=== PATIENT | male | born 1965 | race Caucasian/White ===

== ENCOUNTER → 2025-02-05 | Outpatient (REF) | payer MEDICARE, SELFPAY ==
[2025-02-05 10:01] LABS: Absolute Lymphocyte Count 1.77 X10^3/uL (0.83-4.51); Absolute Neutrophil Count 4.6 X10^3/uL (2.0-7.7); Basophil# 0.08 X10^3/uL; Eosinophil# 0.33 X10^3/uL; Eosinophils% 4.1 % (0-5); Hematocrit 28.1 % (40-54); Hemoglobin 8.8 g/dL (13.0-16.5); Lymphocyte # 1.77 X10^3/ul (0.83-4.51); Mean Corp Hgb Conc 31.3 g/dL (32-36); Mean Corpuscular Volume 92.7 fL (80-94); Mean Platelet Vol. 9.2 fl (6.2-12.0); Monocyte# 1.26 X10^3/uL; Monocyte% 15.6 % (0-10); NRBC Flagged by Analyzer 0 % (0-5); Neutrophil # 4.57 X10^3/uL (2.7-7.7); Neutrophil % 56.7 % (47-70); Platelet Count 358 K/mm3 (150-450); RBC Distribution Width CV 18.8 % (11.6-14.6); RBC Distribution Width SD 63.1 fl (35.1-43.9); Red Blood Count 3.03 M/mm3 (4.6-6.2); White Blood Count 8.1 K/mm3 (4.4-11.0)
[2025-02-05 10:18] LABS: ALB/GLOB Ratio 0.7 RATIO (0.9-2.4); AST(SGOT) 42 U/L (<=37); Alanine Aminotransfer ALT/SGPT 11 U/L (<=46); Albumin, Serum 3.1 g/dL (3.5-5.0); Alkaline Phosphatase 260 U/L (40-129); Anion Gap 18 (5-15); BUN 22 mg/dL (4-19); BUN/Creat Ratio 4.1 RATIO (10-20); Carbon Dioxide 25.9 mmol/L (21.0-32.0); Chloride 93 mmol/L (98-108); Creatinine, Serum 5.27 mg/dL (0.70-1.20); EST Glomerular Filtration Rate 12 (>60); Globulin 4.3 g/dL (2.2-4.2); Glucose 65 mg/dL (70-99); Potassium 4.5 mmol/L (3.3-5.1); Protein, Total 7.4 g/dL (5.9-8.4); Sodium Level 136 mmol/L (133-145); Total Bilirubin 0.81 mg/dL (0.00-1.30)
== END ==
LOC: OLS.SANC 05:56
DX: I48.91 Unspecified atrial fibrillation (principal); D64.9 Anemia, unspecified; M46.28 Osteomyelitis of vertebra, sacral and sacrococcygeal region
CPT/HCPCS: 36415; 80053; 85025

== ENCOUNTER → 2025-02-07 | Outpatient (REF) | payer MEDICARE, SELFPAY ==
[2025-02-07 09:50] LABS: International Normalized Ratio 1.8; Prothrombin Time (Protime)PT. 21.1 SECONDS (11.7-14.9)
== END ==
LOC: OLS.SANC 05:00
PROVIDERS: Visit Provider Internal Medicine
DX: Z79.01 Long term (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 anticoagulants (principal)
CPT/HCPCS: 36415; 85610

== ENCOUNTER → 2025-02-08 | Outpatient (REF) | payer MEDICARE, SELFPAY ==
[2025-02-08 08:06] LABS: INR Fingerstick 2.3; Prothrombin Time Fingerstick 24.9 SEC (11.7-14.9)
== END ==
LOC: OLS.SANC 05:00
DX: Z79.01 Long term (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 anticoagulants (principal)
CPT/HCPCS: 36416; 85610

== ENCOUNTER → 2025-02-12 | Outpatient (REF) | payer MEDICARE, SELFPAY ==
[2025-02-12 08:53] LABS: Absolute Lymphocyte Count 1.29 X10^3/uL (0.83-4.51); Absolute Neutrophil Count 4.7 X10^3/uL (2.0-7.7); Basophil# 0.08 X10^3/uL; Basophil% 1.1 % (0-1); Eosinophil# 0.34 X10^3/uL; Eosinophils% 4.7 % (0-5); Hematocrit 24.6 % (40-54); Lymphocyte # 1.29 X10^3/ul (0.83-4.51); Lymphocyte % 17.7 % (19-41); Mean Corp Hgb Conc 32.5 g/dL (32-36); Mean Corpuscular Hgb 29.3 pg (27.0-32.0); Mean Corpuscular Volume 90.1 fL (80-94); Mean Platelet Vol. 9.2 fl (6.2-12.0); Monocyte# 0.87 X10^3/uL; Monocyte% 11.9 % (0-10); NRBC Flagged by Analyzer 0 % (0-5); Neutrophil # 4.67 X10^3/uL (2.7-7.7); Neutrophil % 64.1 % (47-70); Platelet Count 294 K/mm3 (150-450); RBC Distribution Width CV 18.3 % (11.6-14.6); RBC Distribution Width SD 59.4 fl (35.1-43.9); Red Blood Count 2.73 M/mm3 (4.6-6.2); White Blood Count 7.3 K/mm3 (4.4-11.0)
[2025-02-12 09:05] LABS: ALB/GLOB Ratio 0.7 RATIO (0.9-2.4); AST(SGOT) 34 U/L (<=37); Alanine Aminotransfer ALT/SGPT 9 U/L (<=46); Albumin, Serum 2.9 g/dL (3.5-5.0); Alkaline Phosphatase 177 U/L (40-129); Anion Gap 12 (5-15); BUN 43 mg/dL (4-19); BUN/Creat Ratio 10.3 RATIO (10-20); Calcium,Total 9.9 mg/dL (7.6-11.0); Carbon Dioxide 28.4 mmol/L (21.0-32.0); Chloride 91 mmol/L (98-108); Creatinine, Serum 4.17 mg/dL (0.70-1.20); EST Glomerular Filtration Rate 16 (>60); Globulin 4.2 g/dL (2.2-4.2); Glucose 77 mg/dL (70-99); Potassium 3.2 mmol/L (3.3-5.1); Protein, Total 7.1 g/dL (5.9-8.4); Sodium Level 131 mmol/L (133-145); Total Bilirubin 0.69 mg/dL (0.00-1.30)
[2025-02-12 09:39] LABS: International Normalized Ratio 1.5; Prothrombin Time (Protime)PT. 17.9 SECONDS (11.7-14.9)
== END ==
LOC: OLS.SANC 05:00
DX: I48.91 Unspecified atrial fibrillation (principal); D64.9 Anemia, unspecified; I10 Essential (primary) hypertension; Z79.01 Long term (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 anticoagulants
CPT/HCPCS: 36415; 80053; 85025; 85610

== ENCOUNTER → 2025-02-13 05:00 | Outpatient (REF) | payer MEDICARE, SELFPAY ==
[2025-02-13 08:34] LABS: INR Fingerstick 1.7; Prothrombin Time Fingerstick 19.1 SEC (11.7-14.9)
== END ==
LOC: OLS.SANC 05:00
DX: Z79.01 Long term (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 anticoagulants (principal)
CPT/HCPCS: 36416; 85610

== ENCOUNTER → 2025-02-15 | Outpatient (REF) | payer MEDICARE, SELFPAY ==
[2025-02-15 07:53] LABS: International Normalized Ratio 1.3; Prothrombin Time (Protime)PT. 16.6 SECONDS (11.7-14.9)
== END ==
LOC: OLS.SANC 05:00
DX: Z79.01 Long term (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 anticoagulants (principal)
CPT/HCPCS: 36415; 85610

== ENCOUNTER → 2025-02-20 | Outpatient (REF) | payer MEDICARE, SELFPAY ==
[2025-02-20 08:58] LABS: Absolute Lymphocyte Count 1.13 X10^3/uL (0.83-4.51); Absolute Neutrophil Count 4.6 X10^3/uL (2.0-7.7); Basophil% 1.4 % (0-1); Eosinophil# 0.17 X10^3/uL; Eosinophils% 2.5 % (0-5); Hematocrit 25.9 % (40-54); Hemoglobin 8.5 g/dL (13.0-16.5); Lymphocyte # 1.13 X10^3/ul (0.83-4.51); Lymphocyte % 16.4 % (19-41); Mean Corp Hgb Conc 32.8 g/dL (32-36); Mean Corpuscular Hgb 30.1 pg (27.0-32.0); Mean Corpuscular Volume 91.8 fL (80-94); Monocyte# 0.83 X10^3/uL; NRBC Flagged by Analyzer 0 % (0-5); Neutrophil # 4.64 X10^3/uL (2.7-7.7); Neutrophil % 67.3 % (47-70); Platelet Count 322 K/mm3 (150-450); RBC Distribution Width CV 19.4 % (11.6-14.6); RBC Distribution Width SD 63.5 fl (35.1-43.9); Red Blood Count 2.82 M/mm3 (4.6-6.2); White Blood Count 6.9 K/mm3 (4.4-11.0)
[2025-02-20 09:18] LABS: ALB/GLOB Ratio 0.8 RATIO (0.9-2.4); AST(SGOT) 32 U/L (<=37); Alanine Aminotransfer ALT/SGPT 13 U/L (<=46); Alkaline Phosphatase 133 U/L (40-129); Anion Gap 12 (5-15); BUN 44 mg/dL (4-19); BUN/Creat Ratio 11.5 RATIO (10-20); Calcium,Total 9.8 mg/dL (7.6-11.0); Carbon Dioxide 30.1 mmol/L (21.0-32.0); Chloride 91 mmol/L (98-108); Creatinine, Serum 3.87 mg/dL (0.70-1.20); EST Glomerular Filtration Rate 17 (>60); Glucose 78 mg/dL (70-99); Protein, Total 6.9 g/dL (5.9-8.4); Sodium Level 134 mmol/L (133-145); Total Bilirubin 0.64 mg/dL (0.00-1.30)
[2025-02-20 09:47] LABS: International Normalized Ratio 1.4; Prothrombin Time (Protime)PT. 17.5 SECONDS (11.7-14.9)
== END ==
LOC: OLS.SANC 04:00
DX: Z79.01 Long term (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 anticoagulants (principal)
CPT/HCPCS: 36415; 80053; 85025; 85610

== ENCOUNTER → 2025-03-08 05:00 | Outpatient (REF) | payer MEDICARE, SELFPAY ==
--- OUTSIDE RECORDS SUMMARY | 2025-03-08 04:18 | XMS RPT_ITS | CCD ---
Author Organization [facility] Care Team Providers Care Satellite Communications Engineer Name Role Phone Candido Starr Unavailable Unavailable Primary Care Provider Unavailrickey Loomis MD, Daryn Cali Primary Care Provider Unavailable Primary Care Provider UnavailCandido Hardy MD Unavailable Daryn Loomis MD Primary Care Provider Candido Starr MD Unavailable [facility] Primary Care Provider [facility] Primary Care Provider [phone] Kayley Melendrez MD Attending Provider Unava ilable Jayesh Nguyen Attending Provider Unavailab le Kayley Jones Attending Unavail able Parvin ALBA, Kayley Attending Unavail able Samira PARTH, Kayley Attending Unavail able Samira PARTH, Kayley Attending Unavail able Samira PARTH, Kayley Attending Unavail able Jayesh Nguyen Attending Unavailable Parvin ALBA, Kayley Attending Unavail able [facility] Primary Care Unavailable BETTYE PIERRE Admitting Unavailable TERRELLYURIYWELLINGTON Consulting Unavailable ANTHONY HURTADO Attending Unavailable [facility] Primary Care Unavailable CINDY PATEL Consulting Unavailrickey MONTEMAYOR LUCIANO Admitting Unavailable LUCIANO MONTEMAYOR Attending Unavailable ELDON ALBA Consulting Unavailable TIFFANIE VILLEGAS Consulting Unavailable DARYN SANTACRUZ Consulting Unavailable CALI ARREDONDO Consulting Unavailable [facility] Primary Care Unavailable QUIANA JEFFERY Admitting Unavailable JUNE CHAPARRO Consulting Unavailable BARB DAWKINS Attending Unavailable MIKALA DAY Attending Unavailable MIKAAL DAY Referring Unavailable [facility] Primary Care Unavailable FRANK, JESE Referring Unavailable [facility] Primary Care Unavailable MIKALA DAY Attending Unavailable [facility] Unavailable JR SHAH Attending Unavailable DARYN LOOMIS Primary [facility] Unavailable MONTEMAYOR, LUCIANO Referring Unavailable [facility] Unavailable MONTEMAYOR, LUCIANO Referring Unavailable [facility] Care Unavailable OSIRIS TERRELL Attending Unavailable [facility] Unavailable FRANK, JESE Referring Unavailable [facility] Primary Care Unavailable Allergies Allergy Classification Reported Allergen(s) Allergy Type Date of Onset Reaction(s) Facility (11 sources) Lisinopril Drug Allergy [address] [facility] Work Phone: (20 sources) Lisinopril Allergy to substance 2 Swelling, Angioedema [facility] Medications Current Medications Medication Drug Class(es) Dates Sig (Normalized) Sig (Original) amLODIPine 5 mg oral tablet (13 sources) Dihydropyridine Calcium Channel Mono Start: 08-13-2020 take 2 tablets by mouth once daily amLODIPine (NORVASC) 5 mg tablet Take 2 tablets by mouth once daily. 0 08/13/2020 Active Start: 10-21-2019 End: 10-27-2019 take 1 tablet by mouth once daily amLODIPine (NORVASC) 5 MG tablet Take 1 tablet by mouth daily 30 tablet 0 10/25/2019 10/27/2019 Discontinued Comment on above: Take 5 mg by mouth o nce daily. Take 2 tablets by mo ut once daily. amoxicillin 500 mg / clavulanate 125 mg oral tablet (2 sources) Penicillin-class Antibacterial Start: 025 Ampicillin-Sulbactam Sodium (UNASYN IV) (1 source) Start: 025 End: take 3 g intravenously every twenty-four hours Ampicillin-Sulbact am Sodium (UNASYN IV) Infuse 3 g into a venous catheter Every 24 hours. 01/25/2025 02/14/2025 Active ascorbic acid 100 mg / d-biotin 0.3 mg / folic acid 1 mg / niacinamide 20 mg / pantothenic acid 10 mg / pyridoxine hydrochloride 10 mg / riboflavin 1.7 mg / thiamine 1.5 mg / vitamin b12 0.006 mg oral tablet (6 sources) Vitamin B12, Vitamin C atorvastatin 10 mg oral tablet (3 sources) HMG-CoA Reductase Inhibitor Start: End: take 1 tablet by mouth once daily atorvastatin (Lipitor) 10 MG tablet Take 1 tablet (10 mg) by mouth daily. 30 tablet 1 08/17/2023 10/16/2023 Active bisacodyl 5 mg delayed release oral tablet (12 sources) Stimulant Laxative take 10 mg rectal route every twenty-four hours as needed for constipation take 5 mg by mouth every twenty- four hours as needed for constipation emollient (Biafine) cream (5 sources) Start: 05-01-2023 emollient (Alize fine) cream Apply topically 2 times daily. 454 g 0 05/01/2023 Active Start: 05-01-2023 End: 05-01-2023 emollient (Biafine) cream Ap ply topically 2 times daily. 454 g 0 05/01/2023 05/01/2023 Discontinued (Reorder) guaiFENesin 20 mg/ml oral solution (13 sources) Start: 11-28-2024 End: 12-08-2024 guaiFENesin (Robitussin) 100 MG/5ML liquid 20 mL (400 mg) by Per G Tube route every 12 hours for 10 days. 11/28/2024 12/08/2024 Active 1 ml hydrALAZINE hydrochloride 20 mg/ml injection (2 sources) Arteriolar Vasodilator Start: 10-19-2019 End: 10-20-2019 hydrALAZINE (APRESOLINE) injection 10 mg loperamide hydrochloride 0.133 mg/ml oral suspension (13 sources) Opioid Agonist Start: 11-28-2024 End: 12-08-2024 take 15 mL by mouth twice daily loperamide (Imodium) 1 MG/7.5ML solution Take 15 mL (2 mg) by mouth 2 times daily for 10 days. 11/28/2024 12/08/2024 Active magnesium hydroxide 160 mg/ml oral suspension (6 sources) take 30 mL by mouth every twenty-four hours as needed for constipation take 30 mL by mouth every twenty-four hours as needed for constipation magnesium hydroxide (Milk of Magnesia) 800 MG/5ML suspension Take 30 mL by mouth Daily as needed for constipation (if no bm in 3 days). Suspended melatonin 3 mg oral tablet (20 sources) Start: 03-01-2025 Start: 02-21-2025 End: 03-05-2025 Start: 01-19-2025 End: 02-01-2025 Start: 11-28-2024 End: 03-05-2025 melatonin 5 MG tablet 1 tabl et (5 mg) by Per G Tube route Nightly as needed (insomnia). 11/28/2024 03/05/2025 Discontinued (Stop taking at discharge) Start: 11-28-2024 End: 03-05-2025 metoprolol tartrate 25 mg or al tablet (20 sources) beta-Adrenergic Mono Start: 02-21-2025 End: 03-05-2025 Start: 01-25-2025 Start: 01-25-2025 End: 02-01-2025 Start: 01-19-2025 End: 01-29-2025 Start: 11-28-2024 End: 11-28-2025 metoprolol tartrate (Lopress or) 25 MG tablet 1 tablet (25 mg) by Per G Tube route 2 times daily. 11/28/2024 03/05/2025 Discontinued (Stop taking at discharge) Start: 11-28-2024 End: 03-01-2026 Start: 11-12-2023 End: 11-28-2024 take 1 tablet by mouth once daily metoprolol succinate XL (Toprol-XL) 50 MG 24 hr tablet Take 1 tablet (50 mg) by mouth daily. Do not crush or chew. 30 tablet 2 11/12/2023 11/28/2024 Discontinued (Stop taking at discharge) Start: 08-17-2023 End: 08-17-2024 take 1 tablet by mouth once daily metoprolol succinate XL (Toprol-XL) 25 MG 24 hr tablet Take 1 tablet (25 mg) by mouth daily. Do not crush or chew. 30 tablet 1 08/18/2023 11/12/2023 Discontinued (Reorder) Start: 10-27-2019 metoprolol tar trate, short acting, (LOPRESSOR) 25 mg tablet Take 12.5 mg by mouth twice daily. 0 10/27/2019 Active Start: 10-24-2019 End: 11-26-2019 take 0.5 tablet by mouth twice daily metoprolol tartrate (LOPRESSOR) 25 MG tablet Take 0.5 tablets by mouth 2 times daily 30 tablet 0 10/27/2019 10/27/2019 Discontinued Start: 10-19-2019 metoprolol (LO PRESSOR) injection 5 mg Comment on above: Take 12.5 mg by mout h twice daily. metoprolol tartrate (LOPRESSOR) split-tablet 12.5 mg (1 source) Start: 10-22-19 metoprolol tartrate (LOPRESSOR) split-tablet 12.5 mg potassium phosphate 155 mg / sodium phosphate, dibasic 852 mg / sodium phosphate, monobasic 130 mg oral tablet (4 sources) take 1 tablet by mouth in the morning phosphorus (K Phos Neutral) tablet Take 1 tablet by mouth in the morning and 1 tablet before bedtime. 0 Active pramoxine hydrochloride 10 mg/ml / zinc acetate 1 mg/ml topical lotion (5 sources) Start: 05-01-20 End: 05-01-20 pramoxine-zinc acetate (CALADryl) 1-0.1 % lotion Apply topically 2 times daily as needed for itching or irritation. 177 mL 0 05/01/2023 Active QUEtiapine 25 mg oral tablet (20 sources) Atypical Antipsychotic Start: 02-25-20 End: 03-31-20 Start: 02-21-2025 End: 02-24-2025 Start: 01-19-2025 Start: 11-28-2024 End: 03-05-2025 QUEtiapine (SEROquel) 25 MG tablet 1 tablet (25 mg) by Per G Tube route Nightly. 11/28/2024 03/05/2025 Discontinued (Stop taking at discharge) Start: 11-28-2024 End: 03-05-2025 sevelamer carbonate 800 mg o ral tablet (20 sources) Phosphate Binder Start: 03-01-2025 End: 03-01-2026 Start: 02-21-2025 End: 03-05-2025 Start: 08-13-2020 take 3 tablets by mo uth three times daily at mealtime sevelamer carbonate (RENVELA) 800 mg tablet Take 3 tablets by mouth three times daily with meals. 0 08/13/2020 Active Start: 10-24-2019 End: 11-26-2019 take 2 tablets by mouth three times daily at mealtime sevelamer (RENVELA) 800 MG tablet Take 2 tablets by mouth 3 times daily (with meals) 180 tablet 0 10/27/2019 Suspended Start: 10-22-2019 sevelamer (ROCKY BENNETT) tablet 1,600 mg End: 03-05-2025 Comment on above: Take 1,600 mg by edwina three times daily with meals. Take 3 tablets by mo [facility] hospital three times daily with meals. sodium chloride flush 0.9 % injection 3 mL (1 source) Start: 10-19-19 sodium chloride flush 0.9 % injection 3 mL sodium zirconium cyclosilicate 5000 mg powder for oral suspension (4 sources) Start: 03-03-20 End: 03-05-20 sulfamethoxazole 400 mg / trimethoprim 80 mg oral tablet (2 sources) Dihydrofolate Reductase Inhibitor Antibacterial, Sulfonamide Antimicrobial Start: 05-01-20 End: 05-04-20 take 1 tablet by mouth once daily sulfamethoxazole- trimethoprim (Bactrim) 400-80 MG tablet Take 1 tablet by mouth daily for 3 days. 3 tablet 0 05/01/2023 05/04/2023 Active warfarin sodium 7.5 mg oral tablet (20 sources) Vitamin K Antagonist Start: 03-04-20 Start: 03-02-2025 Start: 02-27-2025 Start: 02-24-2025 Start: 01-24-2025 End: 02-01-2025 Start: 11-28-2024 warfarin (Coum yevgeniy) 1 MG tablet Take as directed per After Visit Summary. 11/28/2024 Active Start: 11-28-2024 (20 sources) Start: 03-03-2025 Start: 03-01-2025 End: 03-05-2025 take 2250 mg intravenously every six hours Start: 02-28-2025 Start: 02-24-2025 End: 03-01-2025 take 4500 mg intravenously every eight hours Start: 02-22-2025 End: 02-22-2025 Start: 02-21-2025 End: 02-22-2025 take 2250 mg intravenously every six hours Start: 02-21-2025 End: 02-21-2025 Start: 02-21-2025 End: 03-05-2025 take 4 mg by mouth every eight hours as needed for nausea and vomiting [Order 1 Start] Name: ondansetron ODT (Zofran-ODT) disintegrating tablet 4 mg Signed Summary: 4 mg, Oral, Every 8 hours PRN, nausea, vomiting, Starting on Wed02/21/25 at 0020, 1st Line. If inadequate response within 60 minutes, proceed to next-line agent or contact provider if no further options ordered. Patient should allow tablet to dissolve on tongue. Do not remove from blister pack until just before administering. [Order 1 End] [Order 2 Start] Name: ondansetron (Zofran) injection 4 mg Signed Summary: 4 mg, IntraVENous, Every 6 hours PRN, nausea, vomiting, Starting on Wed02/21/25 at 0020, 1st Line. Give IV if patient is unable to take orally. If inadequate response within 60 minutes, proceed to next-line agent or contact provider if no further options ordered. [Order 2 End] Start: 02-21-2025 End: 03-05-2025 take 650 mg by mouth every six hours as needed for pain and fever [Order 1 Start] Name: acetaminophen (Tylenol) tablet 650 mg Signed Summary: 650 mg, Oral, Every 6 hours PRN, mild pain (1-3), fever, For temp greater than 100.4 F (38 C), Starting on Wed02/21/25 at 0020, Maximum dose of acetaminophen is 4000 mg from all sources in 24 hours. [Order 1 End] [Order 2 Start] Name: acetaminophen (Tylenol) suppository 650 mg Signed Summary: 650 mg, Rectal, Every 6 hours PRN, fever, For temp greater than 100.4 F (38 C), Starting on Wed02/21/25 at 0020, Administer if oral route cannot be used. Maximum dose of acetaminophen is 4000 mg from all sources in 24 hours. [Order 2 End] Start: 01-25-2025 End: 02-01-2025 Start: 01-23-2025 End: 02-01-2025 take 5 mg by mouth every six hours as needed for pain [Order 1 Start] Name: oxyCODONE (Roxicodone) immediate release tablet 5 mg Signed Summary: 5 mg, Oral, Every 6 hours PRN, moderate pain (4-6), Starting on Wed01/23/25 at 1312 [Order 1 End] [Order 2 Start] Name: oxyCODONE (Roxicodone) immediate release tablet 10 mg Signed Summary: 10 mg, Oral, Every 6 hours PRN, severe pain (7-10), Starting on Wed01/23/25 at 1312 [Order 2 End] Start: 01-21-2025 End: 01-22-2025 Start: 01-20-2025 End: 01-20-2025 Start: 01-20-2025 End: 01-21-2025 Start: 01-19-2025 End: 01-25-2025 take 3000 mg intravenously every twelve hours Start: 01-19-2025 End: 01-23-2025 take 2.5 mg by mouth every six hours as needed for pain Completed/Discontinued Medications Medication Drug Class(es) Dates Sig (Normalized) Sig (Original) acetaminophen 500 mg oral tablet (14 sources) Start: 01-19-2025 End: 02-01-2025 take 1000 mg by mouth every eight hours as needed for pain and fever Start: 01-19-2025 End: 01-19-2025 take 1 tablet by mouth every eight hours Start: 01-19-2025 End: 01-19-2025 Start: 08-17-2023 End: 08-17-2023 take 1 tablet by mouth every six hours as needed for pain and fever acetaminophen (Tylenol) tablet 650 mg 20 ml albumin human, longterm 250 mg/ml injection (1 source) Human Serum Albumin Start: 10-12-2024 End: 10-12-2024 IntraVENous, As needed, Starting on Wed10/12/24 at 1025, Anesthesia Intraprocedure albuterol 0.83 mg/ml inhalation solution (2 sources) beta2-Adrenergic Agonist Start: 02-21-2025 End: 03-05-2025 albuterol 0.833 mg/ml / ipratropium bromide 0.167 mg/ml inhalation solution (20 sources) Anticholinergic, beta2-Adrenergic Agonist Start: 11-28-2024 End: 11-28-2025 ipratropium-albuterol (Duo-Neb) 0.5-2.5 mg/3 mL nebulizer solution Take 3 mL by nebulization every 8 hours. 11/28/2024 02/21/2025 Discontinued (Dose adjustment) Start: 11-28-2024 End: 11-28-2025 aminocaproic acid (Amicar) 10g in sodium chloride 0.9% 290 mL infusion (1 source) Start: 10-12-2024 End: 10-12-2024 IntraVENous, Continuous PRN, Starting on Brigid 10/12/24 at 0750, Anesthesia Intraprocedure amLODIPine 10 mg / atorvastatin 20 mg oral tablet (3 sources) Dihydropyridine Calcium Channel Mono, HMG-CoA Reductase Inhibitor End: 08-17-2023 take 1 tablet by mouth in the morning amLODIPine-atorvast atin (Caduet) 10-20 MG tablet Take 1 tablet by mouth in the morning. 0 08/17/2023 Discontinued ampicillin-sulbacta m (Unasyn) 3,000 mg in sodium chloride 0.9 % 100 mL IVPB (Add-Reynolds) (2 sources) Start: 02-01-2025 End: 02-01-2025 anidulafungin 100 mg in sodium chloride 0.9 % 100 mL IVPB (10 sources) Start: 11-28-2024 End: 12-04-2024 anidulafungin 100 mg in sodium chloride 0.9 % 100 mL IVPB Infuse 100 mg into a venous catheter Every 24 hours for 6 doses. 11/28/2024 12/04/2024 Start: 11-28-2024 End: 12-04-2024 anidulafungin 100 mg in sodi um chloride 0.9 % 100 mL IVPB Infuse 100 mg into a venous catheter Every 24 hours for 6 doses. 11/28/2024 12/04/2024 Active apixaban 5 mg oral tablet (20 sources) Factor Xa Inhibitor Start: 08-17-2023 End: 11-28-2024 take 1 tablet by mouth twice daily apixaban (Eliquis) 5 MG tablet Take 1 tablet (5 mg) by mouth 2 times daily. 60 tablet 1 08/17/2023 11/28/2024 Discontinued (Stop taking at discharge) ascorbic acid 100 mg / biotin 0.15 mg / calcium pantothenate 5 mg / folic acid 1 mg / niacin 20 mg / pyridoxine 10 mg / riboflavin 1.7 mg / thiamine mononitrate 1.5 mg / vitamin b12 0.006 mg oral capsule (2 sources) Nicotinic Acid, Vitamin B12, Vitamin C Start: 02-21-2025 End: 03-05-2025 asenapine 5 mg sublingual tablet (2 sources) Atypical Antipsychotic Start: 01-22-2025 End: 01-22-2025 Start: 01-22-2025 End: 01-22-2025 B Eagzfae-G-Irhow Acid (NEPHRO-NATO) 0.8 MG TABS (1 source) Start: 10-14-2020 take 1 tablet by mouth once daily B Vaanrqb-N-Oyrtu Acid (NEPHRO-NATO) 0.8 MG TABS TAKE 1 TABLET BY MOUTH EVERY DAY 0 10/14/2020 Suspended 10 ml calcium chloride 100 mg/ml prefilled syringe (2 sources) Start: 10-12-2024 End: 10-12-2024 IntraVENous, As needed, Starting on Brigid 10/12/24 at 1010, Anesthesia Intraprocedure Start: 10-19-2019 End: 10-19-2019 calcium chloride 10 % inject ion 1 g calcium chloride 0.0014 meq/ ml / potassium chloride 0.004 meq/ml / sodium chloride 0.103 meq/ml / sodium lactate 0.028 meq/ml injectable solution (3 sources) Start: 01-25-2025 End: 01-25-2025 Start: 10-19-2019 End: 10-19-2019 lactated ringers bolus ceFAZolin 1000 mg injection (1 source) Cephalosporin Antibacterial Start: 10-12-2024 End: 10-12-2024 IntraVENous, As needed, Starting on Brigid 10/12/24 at 0741, Anesthesia Intraprocedure cholecalciferol 9.52 unt/ml / glucose 357 mg/ml oral gel (2 sources) Vitamin D Start: 01-21-2025 End: 02-01-2025 cinacalcet 60 mg oral tablet (1 source) Calcium-sensing Receptor Agonist Start: 12-17-2020 End: 12-16-2021 Cinacalcet HCl (SENSIPAR PO) Take 60 mg by mouth 0 12/17/2020 12/16/2021 Suspended collagenase 0.25 unt/mg topical ointment (4 sources) Collagen-specific Enzyme Start: 01-19-2025 End: 02-01-2025 1 ml dexamethasone phosphate 10 mg/ml injection (2 sources) Corticosteroid Start: 10-12-2024 End: 10-12-2024 IntraVENous, As needed, Starting on Wed10/12/24 at 0736, Anesthesia Intraprocedure Start: 10-19-2019 End: 10-19-2019 dexamethasone (DECADRON) inj ection 4 mg 1 ml diphenhydrAMINE hydrochloride 50 mg/ml cartridge (1 source) Histamine-1 Receptor Antagonist Start: 10-19-2019 End: 10-19-2019 diphenhydrAMINE (BENADRYL) injection 25 mg diphenhydrAMINE hydrochloride 10 mg/ml / zinc acetate 1 mg/ml topical cream (1 source) Histamine-1 Receptor Antagonist Start: 05-01-2023 End: 05-01-2023 diphenhydrAMINE-zinc acetate (BENADryl) cream Apply topically 3 times daily as needed for itching or irritation. 28 g 0 05/01/2023 05/01/2023 Discontinued (Ineffective) Drug or medicament (substance) (4 sources) Start: 01-25-2025 End: 02-21-2025 EPINEPHrine 0.01 mg/ml / lidocaine hydrochloride 10 mg/ml injectable solution (2 sources) Antiarrhythmic, alpha-Adrenergic Agonist, beta-Adrenergic Agonist, Catecholamine, Amide Local Anesthetic Start: 01-30-2025 End: 01-30-2025 EPINEPHrine 5mg in 0.9% sodium chloride 250 mL infusion (weight-based) (1 source) Start: 10-12-2024 End: 10-12-2024 IntraVENous, Continuous PRN, Starting on Wed10/12/24 at 1024, Anesthesia Intraprocedure epoetin rowan-epbx (Retacrit) 18710 UNIT/ML injection (20 sources) Start: 12-04-2024 End: 02-21-2025 inject 0.79 mL by subcutaneous injection every week epoetin rowan-epbx (Retacrit) 35889 UNIT/ML injection Indications: ESRD on Dialysis Inject 0.79 mL (7,900 Units) under the skin 1 (one) time per week. 12/04/2024 02/21/2025 Discontinued (Discontinued by another clinician) Start: 12-04-2024 inject 0.79 mL by bangura bcutaneous injection every week epoetin rowan-epbx (Retacrit) 97155 UNIT/ML injection Indications: ESRD on Dialysis Inject 0.79 mL (7,900 Units) under the skin 1 (one) time per week. 12/04/2024 Active 10 ml esmolol hydrochloride 10 mg/ml injection (1 source) beta-Adrenergic Mono Start: 10-12-2024 End: 10-12-2024 IntraVENous, As needed, Starting on Brigid 10/12/24 at 0736, Anesthesia Intraprocedure 20 ml etomidate 2 mg/ml injection (1 source) General Anesthetic Start: 10-12-2024 End: 10-12-2024 IntraVENous, As needed, Starting on Brigid 10/12/24 at 0736, Anesthesia Intraprocedure 20 ml fentaNYL 0.05 mg/ml injection (2 sources) Opioid Agonist Start: 10-12-2024 End: 10-12-2024 IntraVENous, As needed, Starting on Brigid 10/12/24 at 0739, Anesthesia Intraprocedure Start: 10-26-2019 End: 10-26-2019 fentaNYL (SUBLIMAZE) injecti on gelatin absorbable (Gelfoam) sponge 1 each (1 source) Start: 05-01-2023 End: 05-01-2023 gelatin absorbable (Gelfoam) sponge 1 each glucagon (rdna) 1 mg injection (2 sources) Antihypoglycemic Agent Start: 01-21-2025 End: 02-01-2025 50 ml glucose 50 mg/ml injection (3 sources) Start: 01-21-2025 End: 02-01-2025 Start: 10-19-2019 End: 10-19-2019 dextrose 50 % IV solution 250 ml heparin sodium, porcine 100 unt/ml injection (20 sources) Unfractionated Heparin, Anti-coagulant Start: 02-21-2025 End: 03-05-2025 Start: 02-21-2025 End: 03-05-2025 Start: 11-28-2024 End: 02-01-2025 Start: 11-28-2024 heparin 1000 u nits/mL injection Infuse 2 mL (2,000 Units) into a venous catheter as needed (heparin dosing algorithm). 11/28/2024 Active Start: 11-28-2024 heparin 1000 u nits/mL injection Infuse 4 mL (4,000 Units) into a venous catheter as needed (per heparin dosing algorithm). 11/28/2024 Active Start: 11-28-2024 End: 02-01-2025 Start: 11-28-2024 heparin 100 un its/mL in dextrose 5 % infusion Infuse 294.5- 1,767 Units/hr into a venous catheter continuous. 11/28/2024 Active Start: 10-12-2024 End: 10-12-2024 IntraVENous, As needed, Star ting on Brigid 10/12/24 at 0904, Anesthesia Intraprocedure Start: 08-17-2023 End: 08-17-2023 heparin injection 5,000 Unit s Start: 10-27-2019 heparin (porci ne) injection 1,800 Units Start: 10-27-2019 heparin (porci ne) injection 1,700 Units Start: 10-22-2019 End: 10-23-2019 heparin (porcine) injection 5,000 Units Start: 10-19-2019 End: 10-27-2019 heparin (porcine) injection 1,400 Units 1 ml HYDROmorphone hydrochlo ride 1 mg/ml cartridge (4 sources) Opioid Agonist Start: 01-24-2025 End: 01-24-2025 Start: 01-19-2025 End: 01-19-2025 Start: 01-19-2025 End: 01-19-2025 hydrOXYzine hydrochloride 10 mg oral tablet (4 sources) Antihistamine Start: 02-01-2025 End: 02-01-2025 Start: 01-19-2025 End: 01-19-2025 Start: 01-19-2025 End: 01-19-2025 insulin, regular, human 100 unt/ml injectable solution (3 sources) Insulin Start: 03-05-2025 End: 03-05-2025 Start: 10-19-2019 End: 10-19-2019 insulin regular (HUMULIN R;N OVOLIN R) injection 5 Units ketamine 50 mg/ml injectable solution (2 sources) General Anesthetic Start: 01-21-2025 End: 01-21-2025 Labetalol (1 source) beta-Adrenergic Mono LABETALOL HCL PO Take by mouth daily 0 Suspended 10 ml lidocaine hydrochloride 10 mg/ml injection (20 sources) Antiarrhythmic, Amide Local Anesthetic Start: 01-30-2025 End: 01-30-2025 Start: 11-29-2024 End: 02-01-2025 apply 1 dose transdermal route once daily Lidocaine 4 % patch Apply 1 patch topically daily. 11/29/2024 Active Start: 10-12-2024 End: 10-12-2024 IntraVENous, As needed, Star ting on Brigid 10/12/24 at 0736, Anesthesia Intraprocedure Start: 09-15-2021 End: 09-15-2021 lidocaine PF 1 % injection Start: 10-26-2019 End: 10-26-2019 lidocaine PF 1 % injection Start: 10-19-2019 End: 10-19-2019 lidocaine PF 2 % injection LORazepam 0.5 mg oral tablet (2 sources) Benzodiazepine Start: 08-17-2023 End: 08-17-2023 take 1 tablet by mouth every six hours as needed for anxiety LORazepam (Ativan) tablet 0.5 mg Methoxy PEG-Epoetin Beta (MIRCERA IJ) (1 source) Start: 11-12-2020 End: 11-11-2021 Methoxy PEG-Epoetin Beta (MIRCERA IJ) 100 mcg 0 11/12/2020 11/11/2021 Suspended 2 ml midazolam 1 mg/ml injection (2 sources) Benzodiazepine Start: 10-12-2024 End: 10-12-2024 IntraVENous, As needed, Starting on Brigid 10/12/24 at 0725, Anesthesia Intraprocedure Start: 10-26-2019 End: 10-26-2019 midazolam (VERSED) injection midodrine hydrochloride 5 mg oral tablet (20 sources) alpha-Adrenergic Agonist Start: 01-26-2025 End: 02-01-2025 Start: 01-19-2025 End: 01-26-2025 take 1 tablet by mouth every six hours Start: 11-28-2024 End: 03-05-2025 take 3 tablets by mouth every six hours midodrine (Proamatine) 5 MG tablet 3 tablets (15 mg) by Per G Tube route every 6 hours. 11/28/2024 03/05/2025 Discontinued (Stop taking at discharge) Start: 11-28-2024 End: 03-05-2025 mupirocin 0.02 mg/mg topical ointment (2 sources) RNA Synthetase Inhibitor Antibacterial Start: 01-19-2025 End: 01-24-2025 1 ml naloxone hydrochloride 0.4 mg/ml injection (4 sources) Opioid Antagonist Start: 02-21-2025 End: 03-05-2025 Start: 01-19-2025 End: 02-01-2025 naloxone in sodium chloride (PF) injection injection (4 sources) naloxone in sodi um chloride (PF) injection injection Inject 0.04 mg into the shoulder, thigh, or buttocks as needed for opioid reversal or respiratory depression. Suspended Nicotine (2 sources) Cholinergic Nicotinic Agonist Start: 08-17-2023 End: 08-17-2023 nicotine (Nicoderm, Step 1) 21 MG/24HR patch 1 patch nitroglycerin 0.4 mg sublingual tablet (2 sources) Nitrate Vasodilator Start: 02-25-2025 End: 02-25-2025 NITROGLYCERIN 100 MCG / ML IN D5W VIAL FOR INTRA-OP/INTRAPROCEDURE USE (1 source) Start: 10-12-2024 End: 10-12-2024 Intra-arTERial, As needed, Starting on Brigid 10/12/24 at 1031, Anesthesia Intraprocedure 2 ml ondansetron 2 mg/ml injection (2 sources) Serotonin-3 Receptor Antagonist Start: 10-21-2019 End: 10-21-2019 ondansetron (ZOFRAN) 4 MG/2ML injection Start: 10-21-2019 ondansetron (Z OFRAN) injection 4 mg ondansetron ODT (Zofran-ODT) disintegrating tablet 4 mg (2 sources) Start: 08-17-2023 End: 08-17-2023 take 1 tablet by mouth every eight hours as needed for nausea and vomiting ondansetron ODT (Zofran-ODT) disintegrating tablet 4 mg oxyCODONE hydrochloride 5 mg oral tablet (20 sources) Opioid Agonist Start: 02-01-2025 End: 03-05-2025 take 1 tablet by mouth every six hours as needed for pain oxyCODONE (Roxicodone) 5 MG immediate release tablet Indications: Complication of tracheostomy (CMS/HCC) ([facility]) , Sacral osteomyelitis (CMS/HCC) (HCC) , Decubitus ulcer of sacral region, unstageable (HCC) Take 1 tablet (5 mg) by mouth every 6 hours as needed for moderate pain (4-6) for up to 5 days. 15 tablet 02/01/2025 03/05/2025 Discontinued (Stop taking at discharge) Start: 11-28-2024 End: 12-05-2024 oxyCODONE (Roxicodone) 5 MG immediate release tablet Indications: S/P AVR 1 tablet (5 mg) by Per G Tube route every 6 hours as needed for moderate pain (4-6) for up to 7 days. 11/28/2024 12/05/2024 Active pantoprazole 40 mg delayed r elease oral tablet (20 sources) Proton Pump Inhibitor Start: 02-21-2025 End: 03-01-2026 Start: 11-28-2024 End: 02-21-2025 pantoprazole (ProtoNix) 40 M G injection Infuse 40 mg into a venous catheter 2 times daily. 11/28/2024 02/21/2025 Discontinued (Discontinued by another clinician) Start: 10-19-2019 End: 10-19-2019 pantoprazole (PROTONIX) inje ction 40 mg perfusion prime builder (1 source) Start: 10-12-2024 End: 10-12-2024 Perfusion, Continuous PRN, Starting on Brigid 10/12/24 at 0727, Anesthesia Intraprocedure 1 ml phenylephrine hydrochloride 10 mg/ml injection (1 source) alpha-1 Adrenergic Agonist Start: 10-12-2024 End: 10-12-2024 IntraVENous, As needed, Starting on Brigid 10/12/24 at 0903, Anesthesia Intraprocedure Phenylephrine HCl (Pressors) 1 MG/10ML injection (1 source) Start: 10-12-2024 End: 10-12-2024 IntraVENous, As needed, Starting on Brigid 10/12/24 at 1024, Anesthesia Intraprocedure polyethylene glycol 3350 74987 mg powder for oral solution (4 sources) Osmotic Laxative Start: 02-21-2025 End: 03-05-2025 take 17 g by mouth every twenty-four hours as needed for constipation Start: 08-17-2023 End: 08-17-2023 take 17 g by mouth every twenty-four hours as needed for constipation polyethylene glycol (PEG) 3350 (Miralax) packet 17 g polyethylene glycol 3350 236 000 mg / potassium chloride 2970 mg / sodium bicarbonate 6740 mg / sodium chloride 5860 mg / sodium sulfate 84151 mg powder for oral solution (6 sources) Osmotic Laxative Start: 01-23-2025 End: 01-23-2025 Start: 12-30-2021 peg 3350-Elect rolytes (GOLYTELY) 236-22.74-6.74 -5.86 gram suspension Indications: Rectal bleeding Refer to printed patient instructions that will be mailed to you. 4000 mL 0 12/30/2021 Active Comment on above: Refer to printed pat ient instructions that will be mailed to you. microencapsulated potassium chloride 10 meq extended release oral tablet (2 sources) Start: 02-21-2025 End: 03-05-2025 take 40 mEq by mouth every twenty-four hours as needed prochlorperazine 5 mg/ml injectable solution (4 sources) Phenothiazine Start: 01-21-2025 End: 02-01-2025 take 5 mg intravenously every six hours as needed for nausea and vomiting 100 ml propofol 10 mg/ml injection (11 sources) General Anesthetic Start: 01-24-2025 End: 01-24-2025 Start: 10-12-2024 End: 10-12-2024 IntraVENous, Continuous PRN, Starting on Brigid 10/12/24 at 1105, Anesthesia Intraprocedure 25 ml protamine sulfate (longterm) 10 mg/ml injection (1 source) Start: 10-12-2024 End: 10-12-2024 IntraVENous, As needed, Starting on Brigid 10/12/24 at 1019, Anesthesia Intraprocedure rocuronium bromide 10 mg/ml injectable solution (1 source) Nondepolarizing Neuromuscular Mono Start: 10-12-2024 End: 10-12-2024 IntraVENous, As needed, Starting on Brigid 10/12/24 at 0736, Anesthesia Intraprocedure sodium bicarbonate 150 mEq in sterile water 1,000 mL infusion (1 source) Start: 10-19-2019 End: 10-20-2019 sodium bicarbonate 150 mEq in sterile water 1,000 mL infusion sodium bicarbonate 50 mEq in dextrose 5 % 1,000 mL infusion (1 source) Start: 10-19-2019 End: 10-19-2019 sodium bicarbonate 50 mEq in dextrose 5 % 1,000 mL infusion 5 ml sodium chloride 9 mg/ml injection (12 sources) Start: 01-31-2025 End: 02-01-2025 take 10 mL intraluminal route every twelve hours Start: 01-23-2025 End: 02-01-2025 Start: 10-12-2024 End: 10-12-2024 IntraVENous, Continuous PRN, Starting on Brigid 10/12/24 at 0726, Anesthesia Intraprocedure Start: 09-15-2021 0.9 % sodium c hloride infusion sucroferric oxyhydroxide 500 mg chewable tablet (19 sources) Start: 10-08-2023 End: 11-28-2024 Velphoro 500 MG chewable tab let CRUSH OR CHEW AND SWALLOW 2 TABLETS 3 TIMES A DAY WITH MEALS 10/08/2023 11/28/2024 Discontinued (Stop taking at discharge) Start: 12-17-2020 Sucroferric Ox yhydroxide (VELPHORO) 500 MG CHEW Take 3 tablets by mouth 0 12/17/2020 Suspended traMADol hydrochloride 50 mg oral tablet (1 source) Opioid Agonist Start: 10-26-2019 End: 10-26-2019 traMADol (ULTRAM) tablet 50 mg Transfuse platelets (1 source) Start: 10-12-2024 End: 10-12-2024 Routine triamcinolone acetonide 0.001 mg/mg topical ointment (1 source) Corticosteroid Start: 04-30-2021 triamcinolone (KENALOG) 0.1 % ointment Apply to affected areas bid 80 g 2 04/30/2021 Suspended vancomycin 1000 mg injection (1 source) Glycopeptide Antibacterial Start: 10-12-2024 End: 10-12-2024 Topical, As needed, Starting on Brigid 10/12/24 at 0749, Anesthesia Intraprocedure vitamin k1 5 mg oral tablet (2 sources) Warfarin Reversal Agent, Vitamin K Start: 01-22-2025 End: 01-22-2025 (4 sources) Start: 12-04-2024 End: 02-21-2025 Start: 12-04-2024 (6 sources) Start: 03-01-2025 End: 03-01-2025 Start: 01-31-2025 End: 01-31-2025 Start: 01-29-2025 End: 01-29-2025 (2 sources) Start: 02-01-2025 End: 02-01-2025 (2 sources) Start: 01-25-2025 End: 01-25-2025 (2 sources) Start: 01-23-2025 End: 01-23-2025 (4 sources) Start: 03-05-2025 End: 03-05-2025 Start: 01-21-2025 End: 02-01-2025 (4 sources) Start: 02-20-2025 End: 02-20-2025 Start: 01-20-2025 End: 01-20-2025 (2 sources) End: 02-21-2025 take 10 mg rectal route every twenty-fou r hours as needed Problems Active Problems Problem Classification Problem Date Documented Da te Episodic/Chronic Acute posthemorrhagic anemia (1 source) Acute posthemorrhagic anemia; Translations: [Acute posthemorrhagic anemia] Episodic Alcohol-related disorders (20 sources) Alcohol abuse; Translations: [Alcohol use disorder in remission] Onset: 10-08-2023 08-28-2024 Chronic Cardiac arrest and ventricular fibrillation (2 sources) Cardiac arrest, cause unspecified; Translations: [Cardiac arrest, cause unspecified (HCC)] Onset: 10-03-2024 Chronic Cardiac dysrhythmias (20 sources) Atrial fibrillation; Translations: [Unspecified atrial fibrillation] Onset: 08-16-2023 Resolved: 11-12-2023 08-16-2023 Chronic Chronic kidney disease (20 sources) End stage renal failure on dialysis; Translations: [End stage renal disease] Onset: 10-26-2019 05-01-2023 Chronic Chronic obstructive pulmonary disease and bronchiectasis (2 sources) Chronic bronchitis; Translations: [Unspecified chronic bronchitis] 11-29-2024 Chronic Chronic ulcer of skin (20 sources) Ischemic ulcer of toe; Translations: [Non-pressure chronic ulcer of other part of left foot 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 of skin] Onset: 11-30-2024 11-30-2024 Chronic Complications of surgical procedures or medical care (20 sources) Tracheostomy complication; Translations: [Unspecified tracheostomy complication] Onset: 01-19-2025 01-19-2025 Episodic Congestive heart failure; nonhypertensive (2 sources) Acute right heart failure; Translations: [Acute right heart failure (HCC)] Onset: 10-03-2024 Chronic Deficiency and other anemia (1 source) Iron deficiency anemia; Translations: [Other iron deficiency anemias] Episodic Deficiency and other anemia (1 source) Anemia, unspecified; Translations: [Anemia, unspecified] Onset: 02-23-2025 Episodic Diseases of white blood cells (20 sources) Leukocytosis; Translations: [Elevated white blood cell count, unspecified] Onset: 12-30-2024 12-30-2024 Chronic Diverticulosis and diverticulitis (20 sources) Diverticular disease; Translations: [Diverticulosis of intestine, part unspecified, without perforation or abscess without bleeding] Onset: 10-08-2023 10-08-2023 Chronic Essential hypertension (20 sources) Hypertensive disorder; Translations: [Essential (primary) hypertension] Onset: 12-01-2022 Chronic Gastroduodenal ulcer (except hemorrhage) (20 sources) Gastric ulcer; Translations: [Gastric ulcer, unspecified as acute or chronic, without hemorrhage or perforation] Onset: 2024 2024 Chronic Gastrointestinal hemorrhage (20 sources) Rectal hemorrhage; Translations: [Hemorrhage of anus and rectum] Onset: 10-03-2024 Episodic Heart valve disorders (20 sources) Aortic stenosis, non-rheumatic ; Translations: [Nonrheumatic aortic (valve) stenosis] Onset: 10-08-2023 10-08-2023 Chronic Hypertension with complications and secondary hypertension (1 source) Hypertensive renal disease; Translations: [Hypertensive kidney disease with CKD stage IV (HCC)] Chronic Infective arthritis and osteomyelitis (except that caused by tuberculosis or sexually transmitted disease) (20 sources) Osteomyelitis of sacrum; Translations: [Osteomyelitis of vertebra, sacral and sacrococcygeal region] Onset: 01-03-2025 01-03-2025 Chronic Nephritis; nephrosis; renal sclerosis (20 sources) IgA nephropathy; Translations: [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] Onset: 10-26-2019 10-08-2023 Chronic Nutritional deficiencies (20 sources) Nutritional marasmus; Translations: [Unspecified severe protein-calorie malnutrition] Onset: 11-20-2024 11-20-2024 Chronic Other aftercare (20 sources) Long-term current use of antibiotic; Translations: [senior living (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] Onset: 01-12-2025 01-12-2025 Episodic Other aftercare (1 source) rn long term care (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 anticoagulants; Translations: [senior living (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 anticoagulants] Onset: 03-05-2025 Episodic Other aftercare (1 source) Other truck terminal manager (current) drug therapy; Translations: [Other mcc (current) drug therapy] Onset: 02-28-2025 Episodic Other aftercare (1 source) senior living (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; Translations: [senior living (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] Onset: 01-12-2025 Episodic Other endocrine disorders (2 sources) Hypoglycemia, unspecified; Translations: [Hypoglycemia, unspecified] Onset: 10-03-2024 Chronic Other lower respiratory disease (6 sources) Lower respiratory tract infection; Translations: [Unspecified acute lower respiratory infection] 12-18-2024 Episodic Other lower respiratory disease (18 sources) Hemoptysis; Translations: [Hemoptysis] Onset: 02-20-2025 02-23-2025 Episodic Other lower respiratory disease (2 sources) Cavitation of lung; Translations: [Other disorders of lung] 02-22-2025 Episodic Other lower respiratory disease (1 source) Hemoptysis; Translations: [Hemoptysis] Onset: 02-20-2025 Episodic Other lower respiratory disease (2 sources) Other disorders of lung; Translations: [Other disorders of lung] Onset: 02-20-2025 Episodic Other nervous system disorders (20 sources) Disorder of brain; Translations: [Encephalopathy, unspecified] Onset: 10-03-2024 11-13-2024 Chronic Other nervous system disorders (2 sources) Encephalopathy, unspecified; Translations: [Encephalopathy, unspecified] Onset: 10-03-2024 Chronic Other skin disorders (1 source) Skin lesion; Translations: [Disorder of the skin and subcutaneous tissue, unspecified] 05-01-2023 Episodic Other upper respiratory disease (20 sources) Tracheostomy present; Translations: [Tracheostomy status] Onset: 11-30-2024 11-29-2024 Chronic Other upper respiratory disease (20 sources) Finding of respiratory device; Translations: [Encounter for attention to tracheostomy] Onset: 01-08-2025 12-26-2024 Chronic Other upper respiratory disease (2 sources) Tracheostomy status; Translations: [Tracheostomy status (HCC)] Onset: 11-30-2024 Chronic Peripheral and visceral atherosclerosis (20 sources) Abnormality of abdominal aorta; Translations: [Atherosclerosis of aorta] Onset: 10-08-2023 10-08-2023 Chronic Pneumonia (except that caused by tuberculosis or sexually transmitted disease) (20 sources) Pneumonia due to methicillin susceptible Staphylococcus aureus; Translations: [Pneumonia due to Methicillin susceptible Staphylococcus aureus] Onset: 10-03-2024 01-01-2025 Episodic Pulmonary heart disease (20 sources) Pulmonary embolism; Translations: [Other pulmonary embolism without acute cor pulmonale] Onset: 10-03-2024 Resolved: 12-14-2024 11-01-2024 Episodic Residual codes; unclassified (2 sources) Immunization not carried out because of patient refusal; Translations: [Immunization not carried out because of patient refusal] Onset: 10-08-2023 Episodic Respiratory failure; insufficiency; arrest (adult) (3 sources) Dependence on ventilator; Translations: [Dependence on respirator [ventilator] status] 11-29-2024 Chronic Respiratory failure; insufficiency; arrest (adult) (20 sources) Acute respiratory failure; Translations: [Acute respiratory failure, unspecified whether with hypoxia or hypercapnia] Onset: 10-03-2024 11-13-2024 Episodic Screening and history of mental health and substance abuse codes (1 source) Personal history of nicotine dependence; Translations: [Personal history of tobacco use] 09-07-2023 Episodic Substance-related disorders (1 source) Nicotine dependence; Translations: [Nicotine dependence, cigarettes, uncomplicated] 09-07-2023 Chronic Unclassified (1 source) Patient encounter status; Translations: [Preoperative testing] Unclassified (1 source) Other recurrent and persistent immunoglobulin A nephropathy; Translations: [Other recurrent and persistent immunoglobulin A nephropathy] Onset: 10-08-2023 Past or Other Problems Problem Classification Problem Date Documented Da te Episodic/Chronic Acute and unspecified renal failure (20 sources) Acute renal failure syndrome; Translations: [Acute kidney failure, unspecified] Onset: 10-19-2019 Resolved: 10-08-2023 10-19-2019 Episodic Acute bronchitis (20 sources) Acute bronchiolitis due to respiratory syncytial virus; Translations: [Acute bronchiolitis due to respiratory syncytial virus] Onset: 10-03-2024 10-03-2024 Episodic Deficiency and other anemia (1 source) Normocytic anemia Episodic Deficiency and other anemia (20 sources) Anemia; Translations: [Anemia, unspecified] Onset: 12-30-2021 07-09-2022 Episodic Fluid and electrolyte disorders (5 sources) Angioedema; Translations: [Hyperkalemia] Onset: 10-03-2024 Episodic Other gastrointestinal disorders (20 sources) Pneumoperitoneum; Translations: [Other specified disorders of peritoneum] Onset: 10-03-2024 11-16-2024 Episodic Other gastrointestinal disorders (2 sources) Other specified disorders of peritoneum; Translations: [Other specified disorders of peritoneum] Onset: 10-03-2024 Episodic Other injuries and conditions due to external causes (2 sources) Unspecified foreign body in respiratory tract, part unspecified causing other injury, initial encounter; Translations: [Unspecified foreign body in respiratory tract, part unspecified causing other injury, initial encounter] Onset: 10-03-2024 Episodic Other lower respiratory disease (2 sources) Acute respiratory distress; Translations: [Acute respiratory distress] Onset: 10-03-2024 Episodic Other lower respiratory disease (2 sources) Cyanosis; Translations: [Cyanosis] Onset: 10-03-2024 Episodic Mahnaz-; endo-; and myocarditis; cardiomyopathy (except that caused by tuberculosis or sexually transmitted disease) (2 sources) Disease of pericardium, unspecified; Translations: [Disease of pericardium, unspecified] Onset: 10-03-2024 Episodic Peritonitis and intestinal abscess (20 sources) Fungal peritonitis; Translations: [Other peritonitis] Onset: 11-30-2024 11-30-2024 Episodic Phlebitis; thrombophlebitis and thromboembolism (20 sources) Thromboembolism of vein; Translations: [Acute embolism and thrombosis of unspecified deep veins of left lower extremity] Onset: 11-30-2024 11-30-2024 Episodic Pleurisy; pneumothorax; pulmonary collapse (20 sources) Pleural effusion; Translations: [Pleural effusion, not elsewhere classified] Onset: 10-03-2024 11-28-2024 Episodic Residual codes; unclassified (20 sources) Tobacco user; Translations: [Tobacco use] Onset: 10-08-2023 10-08-2023 Episodic Residual codes; unclassified (6 sources) Current drinker; Translations: [Other specified health status] Onset: 10-08-2023 10-08-2023 Episodic Residual codes; unclassified (2 sources) Localized edema; Translations: [Localized edema] Onset: 10-03-2024 Episodic Residual codes; unclassified (2 sources) Edema, unspecified; Translations: [Edema, unspecified] Onset: 10-03-2024 Episodic Residual codes; unclassified (2 sources) Tobacco use; Translations: [Tobacco use] Onset: 10-08-2023 Episodic Residual codes; unclassified (2 sources) Other specified health status; Translations: [Other specified health status] Onset: 10-08-2023 Episodic Unclassified (4 sources) Pressure injury of sacral region, stage 4 (HCC) 02-01-2025 Unclassified (1 source) Other recurrent and persistent immunoglobulin A nephropathy; Translations: [Other recurrent and persistent immunoglobulin A nephropathy] Onset: 02-20-2025 Results Test Name Value Interpretation Reference Range Facility 36on 03-06-2025 36 Pt DC [facility] [id number] 03-05-2025 [id number] [facility] [id number] Auth is now pending with [facility] for [facility]. Auth ID: [id number] . The insurance needs PT and OT notes- as PT note yesterday incomplete , they are both requested . [facility] [id number] [facility] [id number] Discharge med list transmitted to [facility] via [facility] per [facility] request. [facility] [id number] [facility] [id number] [facility] APTTon 03-05-2025 aPTT Coag (Bld) [Time] 37.6 s High 20.0-30.5 [facility] Comment on above: Result Comment: ARPAN R COMMENTS:NOTE: The therapeutic time for Heparin anticoagulation, based on Xa activity inhibition, is an APTT of 46-80 seconds. Performed By: #### L [id number], [id number] ####Farm Contractor: DOMENICA JARA ([id number])[facility] ([facility])[address] [place] [address] BASIC METABOLIC PANELon 06-0 Anion gap [Moles/Vol] 8 mmol/L Normal 3-13 [facility] Comment on above: Performed By: #### L [id number] ####Farm Contractor: DOMENICA JARA ([id number])[facility] ([facility])[address] [place] [address] Calcium [Mass/Vol] 9.7 mg/dL Normal 8.4-10.2 [facility] Comment on above: Performed By: #### L AB15 ####Farm Contractor: DOMENICA JARA ([id number])[facility] ([facility])[address] [place] [address] Chloride [Moles/Vol] 102 mmol/L Normal 98-107 [facility] Comment on above: Performed By: #### L [id number] ####Farm Contractor: DOMENICA JARA ([id number])[facility] ([facility] [place] [address] CO2 [Moles/Vol] 26 mmol/L Normal 22-29 [facility] Comment on above: Performed By: #### L [id number] ####Farm Contractor: DOMENICA JARA ([id number])[facility] ([facility])[address] [place] [address] Creatinine [Mass/Vol] 3.10 mg/dL High 0.72-1.25 [facility] Comment on above: Performed By: #### L AB15 ####Farm Contractor: DOMENICA JARA ([id number])[facility] ([facility])[address] [place] [address] [place] GLOMERULAR FILTRATION RATE ML/MIN/1.73 SQ M.PREDICTED 22.3 mL/min/1.73m*2 Low >60.0 [facility] Comment on above: Result Comment: Calc ulation based on the Chronic Kidney Disease Epidemiology Collaboration (CKD-EPI) equation refit without adjustment for race Performed By: #### L [id number] ####Farm Contractor: DOMENICA JARA ([id number])[facility] ([facility])[address] [place] [address] [place] Glucose [Mass/Vol] 68 mg/dL Low 74-100 [facility] Comment on above: Performed By: #### L AB15 ####Farm Contractor: DOMENICA JARA ([id number])[facility] ([facility])[address] [place] [address] [place] Potassium [Moles/Vol] 5.9 mmol/L High 3.5-5.1 [facility] Comment on above: Result Comment: [facility] potassium values may be up to 0.5 mmol/L lower than serum values. Performed By: #### L AB15 ####Farm Contractor: DOMENICA JARA ([id number])[facility] ([facility])[address] [place] [address] Sodium [Moles/Vol] 136 mmol/L Normal 136-145 [facility] Comment on above: Performed By: #### L AB15 ####Farm Contractor: DOMENICA JARA ([id number])[facility] ([facility])[address] [place] [address] [place] Urea nitrogen [Mass/Vol] 27 mg/dL High 9-23 [facility] Comment on above: Performed By: #### L AB15 ####Farm Contractor: DOMENICA JARA ([id number])[facility] ([facility])[address] [place] [address] Anion gap [Moles/Vol] 9 mmol/L Normal 3-13 [facility] Comment on above: Performed By: #### L AB15 ####Farm Contractor: DOMENICA JARA ([id number])[facility] ([facility])[address] [place] [address] [place] Calcium [Mass/Vol] 9.7 mg/dL Normal 8.4-10.2 [facility] Comment on above: Performed By: #### L AB15 ####Farm Contractor: DOMENICA JARA ([id number])[facility] ([facility])[address] [place] [address] Chloride [Moles/Vol] 102 mmol/L Normal 98-107 [facility] Comment on above: Performed By: #### L AB15 ####Farm Contractor: DOMENICA JARA ([id number])[facility])[address] [place] [address] CO2 [Moles/Vol] 25 mmol/L Normal 22-29 [facility] Comment on above: Performed By: #### L AB15 ####Farm Contractor: DOMENICA JARA ([id number])[facility] ([facility])[address] [place] [address] Creatinine [Mass/Vol] 3.03 mg/dL High 0.72-1.25 [facility] Comment on above: Performed By: #### L AB15 ####Farm Contractor: DOMENICA JARA ([id number])[facility] ([facility])[address] [place] [address] GLOMERULAR FILTRATION RATE ML/MIN/1.73 SQ M.PREDICTED 22.9 mL/min/1.73m*2 Low >60.0 [facility] Comment on above: Result Comment: Calc ulation based on the Chronic Kidney Disease Epidemiology Collaboration (CKD-EPI) equation refit without adjustment for race Performed By: #### L AB15 ####Farm Contractor: DOMENICA JARA ([id number])[facility] ([facility])[address] [place] [address] Glucose [Mass/Vol] 77 mg/dL Normal 74-100 [facility] Comment on above: Performed By: #### L AB15 ####Farm Contractor: DOMENICA JARA ([id number])[facility] [facility])[address] [place] [address] Potassium [Moles/Vol] 6.6 mmol/L Critically high 3.5-5.1 [facility] Comment on above: Result Comment: [facility] potassium values may be up to 0.5 mmol/L lower than serum values. Performed By: #### L AB15 ####Farm Contractor: DOMENICA [id number])[facility] ([facility])[address] [place] [address] Sodium [Moles/Vol] 136 mmol/L Normal 136-145 [facility] Comment on above: Performed By: #### L AB15 ####Farm Contractor: DOMENICA JARA ([phone])[facility] ([facility] [place] [address] Urea nitrogen [Mass/Vol] 26 mg/dL High 9-23 [facility] Comment on above: Performed By: #### L AB15 ####Farm Contractor: DOMENICA JARA ([id number])[facility] ([facility] [place] [address] Basic metabolic 1998 panelon 03-05-2025 Anion gap [Moles/Vol] 8 mmol/L 3 - 13 mmol/L [facility] Calcium [Mass/Vol] 9.7 mg/dL 8.4 - 10. 2 mg/dL [facility] Chloride [Moles/Vol] 102 mmol/L 98 - 10 7 mmol/L [facility] CO2 [Moles/Vol] 26 mmol/L 22 - 29 mmol/L [facility] Creatinine [Mass/Vol] 3.1 mg/dL High 0.72 - 1.25 mg/dL [facility] GFR/1.73 sq M.predicted (S/P/Bld) [Vol rate/Area] 22.3 mL/min Low - PINF [facility] Glucose [Mass/Vol] 68 mg/dL Low 74 - 100 mg/dL [facility] Interpretation and review of laboratory results Abnormal [facility] Potassium [Moles/Vol] 5.9 mmol/L High 3.5 - 5.1 mmol/L [facility] Sodium [Moles/Vol] 136 mmol/L 136 - 145 mmol/L [facility] Urea nitrogen [Mass/Vol] 27 mg/dL High 9 - 23 mg/d L [facility] Anion gap [Moles/Vol] 9 mmol/L 3 - 13 mmol/L [facility] Calcium [Mass/Vol] 9.7 mg/dL 8.4 - 10. 2 mg/dL [facility] Chloride [Moles/Vol] 102 mmol/L 98 - 10 7 mmol/L [facility] CO2 [Moles/Vol] 25 mmol/L 22 - 29 mmol/L [facility] Creatinine [Mass/Vol] 3.03 mg/dL High 0.72 - 1.25 mg/dL [facility] GFR/1.73 sq M.predicted (S/P/Bld) [Vol rate/Area] 22.9 mL/min Low - PINF [facility] Glucose [Mass/Vol] 77 mg/dL 74 - 100 mg/dL [facility] Interpretation and review of laboratory results Abnormal [facility] Potassium [Moles/Vol] 6.6 mmol/L Critically high 3.5 - 5.1 mmol/L [facility] Sodium [Moles/Vol] 136 mmol/L 136 - 145 mmol/L [facility] Urea nitrogen [Mass/Vol] 26 mg/dL High 9 - 23 mg/d L [facility] CBC (HEMOGRAM)on 03-05-2025 Erythrocyte distribution width (RBC) [Ratio] 21.6 % High 11.5-15.0 [facility] Comment on above: Performed By: #### L [id number] ####Farm Contractor: DOMENICA JARA ([phone])[address] Hematocrit (Bld) [Volume fraction] 25.7 % Low 40.0-52.0 [facility] Comment on above: Performed By: #### L [id number] ####Farm Contractor: DOMENICA JARA ([phone])[address] Hemoglobin (Bld) [Mass/Vol] 7.7 g/dL Low 13.0-18.0 [facility] Comment on above: Performed By: #### L [id number] ####Farm Contractor: DOMENICA JARA ([id number])[facility])[address] [place] [address] MCH (RBC) [Entitic mass] 29.7 pg Normal 26.0-34.0 [facility] Comment on above: Performed By: #### L [id number] ####Farm Contractor: DOMENICA [id number])[facility])[address] [place] [address] MCHC 30.0 % Low 30.5-36.0 [facility] Comment on above: Performed By: #### L [id number] ####Farm Contractor: DOMENICA JARA ([phone])[facility] ([facility])[address] [place] [address] MCV (RBC) [Entitic vol] 99.2 fL High 77.0-99.0 [facility] Comment on above: Performed By: #### L [id number] ####Farm Contractor: DOMENICA JARA ([id number])[facility])[address] [place] [address] Platelet mean volume (Bld) [Entitic vol] 9.1 fL Normal 9.0-12.7 [facility] Comment on above: Performed By: #### L [id number] ####Farm Contractor: DOMENICA JARA ([id number])[facility] ([facility])[address] [place] [address] Platelets (Bld) [#/Vol] 303 10*3/uL Normal 140-440 [facility] Comment on above: Performed By: #### L [id number] ####Farm Contractor: DOMENICA JARA ([id number])[facility])[address] [place] [address] RBC (Bld) [#/Vol] 2.59 10*6/uL Low 4.40-5.90 [facility] Comment on above: Performed By: #### L AB294 ####Farm Contractor: DOMENICA JARA ([phone])[facility])[address] [place] [address] WBC (Bld) [#/Vol] 9.1 10*3/uL Normal 3.6-10.7 [facility] Comment on above: Performed By: #### L AB294 ####Farm Contractor: DOMENICA JARA ([id number])[facility])[address] [place] [address] CBC W/Diff, Automatedon 06-0 Absolute Neut Normal 2.0-7.7 [facility] Comment on above: Order Comment: 413-2 Result Comment: [facility] Performed By: #### L 100.0100, L300.3900, L500.4050 #### [facility] [address] [place], [address] HCT Normal 40-54 [facility] Comment on above: Order Comment: 413-2 Result Comment: [facility] Performed By: #### L 100.0100, L300.3900, L500.4050 #### [facility] [address] [place], [address] HGB Normal 13.0-16.5 [facility] Comment on above: Order Comment: 413-2 Result Comment: [facility] Performed By: #### L 100.0100, L300.3900, L500.4050 #### [facility] [address] [place], [address] MCH Normal 27.0-32.0 [facility] Comment on above: Order Comment: 413-2 Result Comment: [facility] Performed By: #### L 100.0100, L300.3900, [id number] #### [facility] [address] [place], [address] MCHC Normal 32-36 [facility] Comment on above: Order Comment: 413-2 Result Comment: [facility] Performed By: #### L 100.0100, L300.3900, L500.4050 #### [facility] [address] [place], [address] MCV Normal 80-94 [facility] Comment on above: Order Comment: 413-2 Result Comment: [facility] Performed By: #### L 100.0100, L300.3900, [id number] #### [facility] [address] [place], [address] NEUT% Normal 47-70 [facility] Comment on above: Order Comment: 413-2 Result Comment: [facility] Performed By: #### L 100.0100, L300.3900, [id number] #### [facility] [address] [place], [address] PLT Normal 150-450 [facility] Comment on above: Order Comment: 413-2 Result Comment: [facility] Performed By: #### L 100.0100, L300.3900, L500.4050 #### [facility] [address] [place], [address] RBC Normal 4.6-6.2 [facility] Comment on above: Order Comment: 413-2 Result Comment: [facility] Performed By: #### L 100.0100, L300.3900, L500.4050 #### [facility] [address] [place], [address] RDW CV Normal 11.6-14.6 [facility] Comment on above: Order Comment: 413-2 Result Comment: [facility] Performed By: #### L 100.0100, L300.3900, [id number] #### [facility] [address] [place], [address] RDW SD Normal 35.1-43.9 [facility] Comment on above: Order Comment: 413-2 Result Comment: [facility] Performed By: #### L 100.0100, L300.3900, L500.4050 #### [facility] [address] [place], [address] WBC Normal 4.4-11.0 [facility] Comment on above: Order Comment: 413-2 Result Comment: [facility] Performed By: #### L 100.0100, L300.3900, L500.4050 #### [facility] [address] [place], [address] CBC panel Auto (Bld)on 03-05 Erythrocyte distribution width (RBC) [Ratio] 21.6 % High 11.5 - 15.0 % [facility] Hematocrit (Bld) [Volume fraction] 25.7 % Low 40.0 - 52.0 % [facility] Hemoglobin (Bld) [Mass/Vol] 7.7 g/dL Low 13.0 - 18.0 g/dL [facility] Interpretation and review of laboratory results Abnormal [facility] MCH (RBC) [Entitic mass] 29.7 pg 26. 0 - 34.0 pg [facility] MCHC (RBC) [Mass/Vol] 30 % Low 30.5 - 36.0 % [facility] MCV (RBC) [Entitic vol] 99.2 fL High 77.0 - 99.0 fL [facility] Platelet mean volume (Bld) [Entitic vol] 9.1 fL 9.0 - 12.7 fL [facility] Platelets (Bld) [#/Vol] 303 10*3/uL 140 - 440 10*3/uL [facility] RBC (Bld) [#/Vol] 2.59 10*6/uL Low 4.40 - 5.9 0 10*6/uL [facility] WBC (Bld) [#/Vol] 9.1 10*3/uL 3.6 - 10.7 10*3/uL [facility] Comprehensive Metabolic Prof ilon 03-05-2025 ALB Normal 3.5-5.0 [facility] Comment on above: Order Comment: 413-2 Result Comment: [facility] Performed By: #### L 100.0100, L300.3900, L500.4050 #### [facility] [address] [place], [address] ALK PHOS Normal 40-129 [facility] Comment on above: Order Comment: 413-2 Result Comment: [facility] Performed By: #### L 100.0100, L300.3900, L500.4050 #### [facility] [address] [place], [address] ALT Normal <=46 [facility] Comment on above: Order Comment: 413-2 Result Comment: [facility] Performed By: #### L 100.0100, L300.3900, L500.4050 #### [facility] [address] [place], [address] AST Normal <=37 [facility] Comment on above: Order Comment: 413-2 Result Comment: [facility] Performed By: #### L 100.0100, L300.3900, L500.4050 #### [facility] [address] [place], [address] BUN Normal 4-19 [facility] Comment on above: Order Comment: 413-2 Result Comment: [facility] Performed By: #### L 100.0100, L300.3900, L500.4050 #### [facility] [address] [place], [address] BUN/CRE Normal 10-20 [facility] Comment on above: Order Comment: 413-2 Result Comment: [facility] Performed By: #### L 100.0100, L300.3900, L500.4050 #### [facility] [address] [place], [address] Calcium Normal 7.6-11.0 [facility] Comment on above: Order Comment: 413-2 Result Comment: [facility] Performed By: #### L 100.0100, L300.3900, L500.4050 #### [facility] [address] [place], [address] CL Normal 98-108 [facility] Comment on above: Order Comment: 413-2 Result Comment: [facility] Performed By: #### L 100.0100, L300.3900, L500.4050 #### [facility] [address] [place], [address] CO2 Normal 21.0-32.0 [facility] Comment on above: Order Comment: 413-2 Result Comment: [facility] Performed By: #### L 100.0100, L300.3900, L500.4050 #### [facility] [address] [place], [address] CREAT,SERUM Normal 0.70-1.20 [facility] Comment on above: Order Comment: 413-2 Result Comment: [facility] Performed By: #### L 100.0100, L300.3900, L500.4050 #### [facility] [address] [place], [address] eGFR Normal >60 [facility] Comment on above: Order Comment: 413-2 Result Comment: [facility] Performed By: #### L 100.0100, L300.3900, L500.4050 #### [facility] [address] [place], [address] GAP Normal 5-15 [facility] Comment on above: Order Comment: 413-2 Result Comment: [facility] Performed By: #### L 100.0100, L300.3900, L500.4050 #### [facility] [address] [place], [address] GLU Normal 70-99 [facility] Comment on above: Order Comment: 413-2 Result Comment: [facility] Performed By: #### L 100.0100, L300.3900, L500.4050 #### [facility] [address] [place], [address] Potassium Normal 3.3-5.1 [facility] Comment on above: Order Comment: 413-2 Result Comment: [facility] Performed By: #### L 100.0100, L300.3900, L500.4050 #### [facility] [address] [place], [address] T BILI Normal 0.00-1.30 [facility] Comment on above: Order Comment: 413-2 Result Comment: [facility] Performed By: #### L 100.0100, L300.3900, L500.4050 #### [facility] [address] [place], [address] T PROT Normal 5.9-8.4 [facility] Comment on above: Order Comment: 413-2 Result Comment: [facility] Performed By: #### L 100.0100, L300.3900, L500.4050 #### [facility] [address] [place], [address] Comprehensive Metabolic Profil Normal 133-145 [facility] Comment on above: Order Comment: 413-2 Result Comment: [facility] Performed By: #### L 100.0100, L300.3900, L500.4050 #### [facility] [address] [place], [address] Laboratory - Chemistry and C hemistry - challengeon 03-05-2025 Glucose [Mass/Vol] 142 mg/dL High 70 - 100 mg/dL [facility] Glucose [Mass/Vol] 83 mg/dL 70 - 100 mg/dL [facility] Laboratory - Coagulationon 0 03-05-2025 PT Coag (Bld) [Time] 18.6 s High 9.0 - 12.0 s [facility] No Panel Informationon 03-05 Interpretation and review of laboratory results Abnormal [facility] Interpretation and review of laboratory results Normal [facility] Interpretation and review of laboratory results Abnormal [facility] PROTHROMBIN TIMEon INR Coag (PPP) [Relative time] 1.8 {INR} High 0.9-1.1 [facility] Comment on above: Result Comment: Vaughn mmended Anticoagulant Therapy: SEE BELOW----- INR of 2.0 - 3.0 : - Prophylaxis of Venous Thrombosis (high-risk surgery) - Treatment of Venous Thrombosis - Treatment of Pulmonary Embolism (Includes tissue heart valves, Acute Myocardial Infarction to prevent systemic embolism, Valvular Heart Disease, and Atrial Fibrillation)----- INR of 2.5 - 3.5 : - Mechanical Prosthetic Valves (high risk) - If oral anticoagulant therapy is used to prevent Myocardial Infarction Performed By: #### L AB325, [id number] ####Farm Contractor: DOMENICA JARA ([phone])[facility] ([facility])[address] [place] [address] [facility] PT Coag (PPP) [Time] 18.6 s High 9.0-12.0 [facility] Comment on above: Performed By: #### Tameka AB325, [id number] ####Farm Contractor: DOMENICA JARA ([phone])[facility] ([facility])[address] [place] [address] [place] PT Coag (Bld) [Time]on 03-05 INR Coag (PPP) [Relative time] 1.8 {INR} High 0.9 - 1.1 [facility] Progress Noteon 03-05-2025 Progress Note Normal [facility] Progress Note Normal [facility] Progress [facility] Normal [facility] Progress Note Normal [facility] Progress Note Normal [facility] Prothrombin Time w/INRon INR Normal [facility] Comment on above: Order Comment: 413-2 Result Comment: [facility] Performed By: #### L 100.0100, L300.3900, L500.4050 #### [facility] [address] [place], [address] PROTIME Normal 11.7-14.9 [facility] Comment on above: Order Comment: 413-2 Result Comment: [facility] Performed By: #### L 100.0100, L300.3900, L500.4050 #### [facility] [address] [place], [address] aPTT Coag (Bld) [Time]on aPTT Coag (PPP) [Time] 37.6 s High 20.0 - 30.5 s [facility] 30on 03-04-2025 30 Normal [facility] [id number] 03-04-2025 [id number] Normal [facility] APTTon 03-04-2025 aPTT Coag (Bld) [Time] 52.2 s High 20.0-30.5 [facility] Comment on above: Result Comment: ARPAN Kaplan COMMENTS:NOTE: The therapeutic time for Heparin anticoagulation, based on Xa activity inhibition, is an APTT of 46-80 seconds. Performed By: #### L AB325, [id number] ####Farm Contractor: DOMENICA JARA ([phone])[facility] ([facility])[address] [place] [address] BASIC METABOLIC PANELon Anion gap [Moles/Vol] 11 mmol/L Normal 3-13 [facility] Comment on above: Performed By: #### L AB15 ####Farm Contractor: DOMENICA JARA ([phone])[facility] ([facility])[address] [place] [address] Calcium [Mass/Vol] 9.4 mg/dL Normal 8.4-10.2 [facility] Comment on above: Performed By: #### L AB15 ####Farm Contractor: DOMENICA JARA ([phone])[facility] ([facility])[address] [place] [address] Chloride [Moles/Vol] 103 mmol/L Normal 98-107 [facility] Comment on above: Performed By: #### L AB15 ####Farm Contractor: DOMENICA JARA ([phone])[facility] ([facility])[address] [place] [address] [place] CO2 [Moles/Vol] 27 mmol/L Normal 22-29 [facility] Comment on above: Performed By: #### L AB15 ####Farm Contractor: DOMEINCA JARA ([phone])[facility] ([facility])[address] [place] [address] Creatinine [Mass/Vol] 2.41 mg/dL High 0.72-1.25 [facility] Comment on above: Performed By: #### L AB15 ####Farm Contractor: DOMENICA JARA ([phone])[facility])[address] [place] [address] GLOMERULAR FILTRATION RATE ML/MIN/1.73 SQ M.PREDICTED 30.2 mL/min/1.73m*2 Low >60.0 [facility] Comment on above: Result Comment: Calc ulation based on the Chronic Kidney Disease Epidemiology Collaboration (CKD-EPI) equation refit without adjustment for race Performed By: #### L AB15 ####Farm Contractor: DOMENICA JARA ([phone])[facility] ([facility])[address] [place] [address] Glucose [Mass/Vol] 99 mg/dL Normal 74-100 [facility] Comment on above: Performed By: #### L AB15 ####Farm Contractor: DOMENICA JARA ([phone])[facility])[address] [place] [address] Potassium [Moles/Vol] 5.1 mmol/L Normal 3.5-5.1 [facility] Comment on above: Result Comment: [facility] potassium values may be up to 0.5 mmol/L lower than serum values. Performed By: #### L AB15 ####Farm Contractor: DOMENICA JARA ([phone])[facility] ([facility])[address] [place] [address] Sodium [Moles/Vol] 141 mmol/L Normal 136-145 [facility] Comment on above: Performed By: #### L AB15 ####Farm Contractor: DOMENICA JARA ([phone])[facility])[address] [place] [address] Urea nitrogen [Mass/Vol] 18 mg/dL Normal 9-23 [facility] Comment on above: Performed By: #### L AB15 ####Farm Contractor: DOMENICA JARA ([phone])[facility] ([facility])[address] [place] [address] Basic metabolic 1998 panelon 03-04-2025 Anion gap [Moles/Vol] 11 mmol/L 3 - 13 mmol/L [facility] Calcium [Mass/Vol] 9.4 mg/dL 8.4 - 10. 2 mg/dL [facility] Chloride [Moles/Vol] 103 mmol/L 98 - 10 7 mmol/L [facility] CO2 [Moles/Vol] 27 mmol/L 22 - 29 mmol/L [facility] Creatinine [Mass/Vol] 2.41 mg/dL High 0.72 - 1.25 mg/dL [facility] GFR/1.73 sq M.predicted (S/P/Bld) [Vol rate/Area] 30.2 mL/min Low - PINF [facility] Glucose [Mass/Vol] 99 mg/dL 74 - 100 mg/dL [facility] Interpretation and review of laboratory results Abnormal [facility] Potassium [Moles/Vol] 5.1 mmol/L 3.5 - 5.1 mmol/L [facility] Sodium [Moles/Vol] 141 mmol/L 136 - 145 mmol/L [facility] Urea nitrogen [Mass/Vol] 18 mg/dL 9 - 23 mg/d L [facility] CBC (HEMOGRAM)on 03-04-2025 Erythrocyte distribution width (RBC) [Ratio] 21.4 % High 11.5-15.0 [facility] Comment on above: Performed By: #### L [id number] ####Farm Contractor: DOMENICA JARA ([phone])[address] Hematocrit (Bld) [Volume fraction] 25.9 % Low 40.0-52.0 [facility] Comment on above: Performed By: #### L AB294 ####Farm Contractor: DOMENICA JARA ([phone])[facility])[address] [place] [address] Hemoglobin (Bld) [Mass/Vol] 7.7 g/dL Low 13.0-18.0 [facility] Comment on above: Performed By: #### L AB294 ####Farm Contractor: DOMENICA JARA ([phone])[facility])[address] [place] [address] MCH (RBC) [Entitic mass] 29.3 pg Normal 26.0-34.0 [facility] Comment on above: Performed By: #### L AB294 ####Farm Contractor: DOMENICA JARA ([phone])[facility])[address] [place] [address] MCHC 29.7 % Low 30.5-36.0 [facility] Comment on above: Performed By: #### L AB294 ####Farm Contractor: DOMENICA JARA ([phone])[facility] ([facility])[address] [place] [address] MCV (RBC) [Entitic vol] 98.5 fL Normal 77.0-99.0 [facility] Comment on above: Performed By: #### L [id number] ####Farm Contractor: DOMENICA JARA ([id number])[facility])[address] [place] [address] Platelet mean volume (Bld) [Entitic vol] 9.3 fL Normal 9.0-12.7 [facility] Comment on above: Performed By: #### L [id number] ####Farm Contractor: DOMENICA JARA ([id number])[facility])[address] [place] [address] Platelets (Bld) [#/Vol] 324 10*3/uL Normal 140-440 [facility] Comment on above: Performed By: #### L [id number] ####Farm Contractor: DOMENICA JARA ([phone])[facility])[address] [place] [address] RBC (Bld) [#/Vol] 2.63 10*6/uL Low 4.40-5.90 [facility] Comment on above: Performed By: #### L [id number] ####Farm Contractor: DOMENICA JARA ([id number])[facility])[address] [place] [address] WBC (Bld) [#/Vol] 7.7 10*3/uL Normal 3.6-10.7 [facility] Comment on above: Performed By: #### L [id number] ####Farm Contractor: DOMENICA JARA ([phone])[facility] ([address] CBC panel Auto (Bld)on 03-04 Erythrocyte distribution width (RBC) [Ratio] 21.4 % High 11.5 - 15.0 % [facility] Hematocrit (Bld) [Volume fraction] 25.9 % Low 40.0 - 52.0 % [facility] Hemoglobin (Bld) [Mass/Vol] 7.7 g/dL Low 13.0 - 18.0 g/dL [facility] Interpretation and review of laboratory results Abnormal [facility] MCH (RBC) [Entitic mass] 29.3 pg 26. 0 - 34.0 pg [facility] MCHC (RBC) [Mass/Vol] 29.7 % Low 30.5 - 36.0 % [facility] MCV (RBC) [Entitic vol] 98.5 fL 77.0 - 99.0 fL [facility] Platelet mean volume (Bld) [Entitic vol] 9.3 fL 9.0 - 12.7 fL [facility] Platelets (Bld) [#/Vol] 324 10*3/uL 140 - 440 10*3/uL [facility] RBC (Bld) [#/Vol] 2.63 10*6/uL Low 4.40 - 5.9 0 10*6/uL [facility] WBC (Bld) [#/Vol] 7.7 10*3/uL 3.6 - 10.7 10*3/uL [facility] Laboratory - Coagulationon 0 03-04-2025 PT Coag (Bld) [Time] 16.6 s High 9.0 - 12.0 s [facility] PT Coag (Bld) [Time] 15.5 s High 9.0 - 12.0 s [facility] No Panel Informationon 03-04 Interpretation and review of laboratory results Abnormal [facility] PROTHROMBIN TIMEon INR Coag (PPP) [Relative time] 1.6 {INR} High 0.9-1.1 [facility] Comment on above: Result Comment: Vaughn mmended Anticoagulant Therapy: SEE BELOW----- INR of 2.0 - 3.0 : - Prophylaxis of Venous Thrombosis (high-risk surgery) - Treatment of Venous Thrombosis - Treatment of Pulmonary Embolism (Includes tissue heart valves, Acute Myocardial Infarction to prevent systemic embolism, Valvular Heart Disease, and Atrial Fibrillation)----- INR of 2.5 - 3.5 : - Mechanical Prosthetic Valves (high risk) - If oral anticoagulant therapy is used to prevent Myocardial Infarction Performed By: #### Tameka [id number] ####Farm Contractor: DOMENICA JARA ([phone])[facility])[address] [place] [address] PT Coag (PPP) [Time] 16.6 s High 9.0-12.0 [facility] [employer] [facility] Comment on above: Performed By: #### L [id number] ####Farm Contractor: DOMENICA JARA ([phone])[facility])[address] [place] [address] INR Coag (PPP) [Relative time] 1.5 {INR} High 0.9-1.1 [facility] Comment on above: Result Comment: Vaughn mmended Anticoagulant Therapy: SEE BELOW----- INR of 2.0 - 3.0 : - Prophylaxis of Venous Thrombosis (high-risk surgery) - Treatment of Venous Thrombosis - Treatment of Pulmonary Embolism (Includes tissue heart valves, Acute Myocardial Infarction to prevent systemic embolism, Valvular Heart Disease, and Atrial Fibrillation)----- INR of 2.5 - 3.5 : - Mechanical Prosthetic Valves (high risk) - If oral anticoagulant therapy is used to prevent Myocardial Infarction Performed By: #### Tameka AB325, [id number] ####Farm Contractor: DOMENICA JARA ([phone])[facility])[address] [place] [address] [place] PT Coag (PPP) [Time] 15.5 s High 9.0-12.0 [facility] [employer] [facility] Comment on above: Performed By: #### Tameka AB325, [id number] ####Farm Contractor: DOMENICA JARA ([phone])[facility])[address] [place] [address] [place] PT Coag (Bld) [Time]on 03-04 INR Coag (PPP) [Relative time] 1.6 {INR} High 0.9 - 1.1 [facility] Interpretation and review of laboratory results Abnormal [facility] INR Coag (PPP) [Relative time] 1.5 {INR} High 0.9 - 1.1 [facility] Progress Noteon 03-04-2025 Progress Note Normal [facility] Progress Note Normal [facility] Progress Note Normal [facility] aPTT Coag (Bld) [Time]on aPTT Coag (PPP) [Time] 52.2 s High 20.0 - 30.5 s [facility] 30on 03-03-2025 30 Normal [facility] 30 Normal [facility] 30 Normal [facility] [id number] 03-03-2025 [id number] Normal [facility] APTTon 03-03-2025 aPTT Coag (Bld) [Time] 66.2 s High 20.0-30.5 [facility] Comment on above: Result Comment: ARPAN Kaplan COMMENTS:NOTE: The therapeutic time for Heparin anticoagulation, based on Xa activity inhibition, is an APTT of 46-80 seconds. Performed By: #### L AB325 ####Farm Contractor: DOMENICA JARA ([phone])[address] aPTT Coag (Bld) [Time] 52.4 s High 20.0-30.5 [facility] Comment on above: Result Comment: ARPAN Kaplan COMMENTS:NOTE: The therapeutic time for Heparin anticoagulation, based on Xa activity inhibition, is an APTT of 46-80 seconds. Performed By: #### L AB325, [id number] ####Farm Contractor: DOMENICA [id number])[address] BASIC METABOLIC PANELon Anion gap [Moles/Vol] 10 mmol/L Normal 3-13 [facility] Comment on above: Performed By: #### L AB15 ####Farm Contractor: DOMENICA [id number])[facility] [place] [address] Calcium [Mass/Vol] 9.2 mg/dL Normal 8.4-10.2 [facility] Comment on above: Performed By: #### L AB15 ####Farm Contractor: DOMENICA JARA ([phone])[facility] ([facility] [place] [address] Chloride [Moles/Vol] 100 mmol/L Normal 98-107 [facility] Comment on above: Performed By: #### L AB15 ####Farm Contractor: DOMENICA JARA ([phone])[facility] ([facility])[address] [place] [address] CO2 [Moles/Vol] 29 mmol/L Normal 22-29 [facility] Comment on above: Performed By: #### L AB15 ####Farm Contractor: DOMENICA JARA ([phone])[facility] ([facility])[address] [place] [address] Creatinine [Mass/Vol] 1.92 mg/dL High 0.72-1.25 [facility] Comment on above: Performed By: #### L AB15 ####Farm Contractor: DOMENICA JARA ([phone])[facility] ([facility])[address] [place] [address] GLOMERULAR FILTRATION RATE ML/MIN/1.73 SQ M.PREDICTED 39.6 mL/min/1.73m*2 Low >60.0 [facility] Comment on above: Result Comment: Calc ulation based on the Chronic Kidney Disease Epidemiology Collaboration (CKD-EPI) equation refit without adjustment for race Performed By: #### L AB15 ####Farm Contractor: DOMENICA JARA ([phone])[facility] ([facility])[address] [place] [address] [place] Glucose [Mass/Vol] 71 mg/dL Low 74-100 [facility] Comment on above: Performed By: #### L AB15 ####Farm Contractor: DOMENICA JARA ([phone])[facility] ([facility])[address] [place] [address] [place] Potassium [Moles/Vol] 4.8 mmol/L Normal 3.5-5.1 [facility] Comment on above: Result Comment: [facility] potassium values may be up to 0.5 mmol/L lower than serum values. Performed By: #### L AB15 ####Farm Contractor: DOMENICA JARA ([phone])[facility] [place] [address] Sodium [Moles/Vol] 139 mmol/L Normal 136-145 [facility] Comment on above: Performed By: #### L AB15 ####Farm Contractor: DOMENICA JARA ([id number])[facility] ([facility])[address] [place] [address] Urea nitrogen [Mass/Vol] 14 mg/dL Normal 9-23 [facility] Comment on above: Performed By: #### L AB15 ####Farm Contractor: DOMENICA JARA ([phone])[facility] [place] [address] Anion gap [Moles/Vol] 11 mmol/L Normal 3-13 [facility] Comment on above: Performed By: #### L AB15 ####Farm Contractor: DOMENICA JARA ([id number])[facility] ([facility])[address] [place] [address] Calcium [Mass/Vol] 9.8 mg/dL Normal 8.4-10.2 [facility] Comment on above: Performed By: #### L AB15 ####Farm Contractor: DOMENICA JARA ([id number])[facility] ([facility])[address] [place] [address] [place] Chloride [Moles/Vol] 101 mmol/L Normal 98-107 [facility] Comment on above: Performed By: #### L AB15 ####Farm Contractor: DOMENICA JARA ([phone])[facility] ([facility] [place] [address] [place] CO2 [Moles/Vol] 28 mmol/L Normal 22-29 [facility] Comment on above: Performed By: #### L AB15 ####Farm Contractor: DOMENICA JARA ([phone])[facility])[address] [place] [address] Creatinine [Mass/Vol] 3.21 mg/dL High 0.72-1.25 [facility] Comment on above: Performed By: #### L AB15 ####Farm Contractor: DOMENICA JARA ([phone])[facility])[address] [place] [address] GLOMERULAR FILTRATION RATE ML/MIN/1.73 SQ M.PREDICTED 21.4 mL/min/1.73m*2 Low >60.0 [facility] Comment on above: Result Comment: Calc ulation based on the Chronic Kidney Disease Epidemiology Collaboration (CKD-EPI) equation refit without adjustment for race Performed By: #### L AB15 ####Farm Contractor: DOMENICA JARA ([phone])[facility])[address] [place] [address] Glucose [Mass/Vol] 93 mg/dL Normal 74-100 [facility] Comment on above: Performed By: #### L AB15 ####Farm Contractor: DOMENICA JARA ([id number])[facility])[address] [place] [address] Potassium [Moles/Vol] 6.2 mmol/L Critically high 3.5-5.1 [facility] Comment on above: Result Comment: [facility] potassium values may be up to 0.5 mmol/L lower than serum values. Performed By: #### L AB15 ####Farm Contractor: DOMENICA JARA ([id number])[facility] ([facility])[address] [place] [address] [place] Sodium [Moles/Vol] 140 mmol/L Normal 136-145 [facility] Comment on above: Performed By: #### L AB15 ####Farm Contractor: DOMENICA JARA ([phone])[facility])[address] [place] [address] Urea nitrogen [Mass/Vol] 26 mg/dL High 9-23 [facility] Comment on above: Performed By: #### L AB15 ####Farm Contractor: DOMENICA JARA ([phone])[facility] ([address] Basic metabolic 1997 panelOr dered By: Piedad Alvarado on 03-03-2025 Anion gap [Moles/Vol] 10 mmol/L 3 - 13 mmol/L [facility] Calcium [Mass/Vol] 9.2 mg/dL 8.4 - 10. 2 mg/dL [facility] Chloride [Moles/Vol] 100 mmol/L 98 - 10 7 mmol/L [facility] CO2 [Moles/Vol] 29 mmol/L 22 - 29 mmol/L [facility] Creatinine [Mass/Vol] 1.92 mg/dL High 0.72 - 1.25 mg/dL [facility] GFR/1.73 sq M.predicted (S/P/Bld) [Vol rate/Area] 39.6 mL/min Low - PINF [facility] Glucose [Mass/Vol] 71 mg/dL Low 74 - 100 mg/dL [facility] Interpretation and review of laboratory results Abnormal [facility] Potassium [Moles/Vol] 4.8 mmol/L 3.5 - 5.1 mmol/L [facility] Sodium [Moles/Vol] 139 mmol/L 136 - 145 mmol/L [facility] Urea nitrogen [Mass/Vol] 14 mg/dL 9 - 23 mg/d L [facility] Basic metabolic 1997 panelOr dered By: Jenni Romano on 03-03-2025 Anion gap [Moles/Vol] 11 mmol/L 3 - 13 mmol/L [facility] Calcium [Mass/Vol] 9.8 mg/dL 8.4 - 10. 2 mg/dL [facility] Chloride [Moles/Vol] 101 mmol/L 98 - 10 7 mmol/L [facility] CO2 [Moles/Vol] 28 mmol/L 22 - 29 mmol/L [facility] Creatinine [Mass/Vol] 3.21 mg/dL High 0.72 - 1.25 mg/dL [facility] GFR/1.73 sq M.predicted (S/P/Bld) [Vol rate/Area] 21.4 mL/min Low - PINF [facility] Glucose [Mass/Vol] 93 mg/dL 74 - 100 mg/dL [facility] Interpretation and review of laboratory results Abnormal [facility] Potassium [Moles/Vol] 6.2 mmol/L Critically high 3.5 - 5.1 mmol/L [facility] Sodium [Moles/Vol] 140 mmol/L 136 - 145 mmol/L [facility] Urea nitrogen [Mass/Vol] 26 mg/dL High 9 - 23 mg/d L [facility] CBC (HEMOGRAM)on 03-03-2025 Erythrocyte distribution width (RBC) [Ratio] 20.9 % High 11.5-15.0 [facility] Comment on above: Performed By: #### L [id number] ####Farm Contractor: DOMENICA JARA ([phone])[facility])[address] [place] [address] Hematocrit (Bld) [Volume fraction] 27.8 % Low 40.0-52.0 [facility] Comment on above: Performed By: #### L AB294 ####Farm Contractor: DOMENICA JAAR ([id number])[facility])[address] [place] [address] Hemoglobin (Bld) [Mass/Vol] 8.3 g/dL Low 13.0-18.0 [facility] Comment on above: Performed By: #### L AB294 ####Farm Contractor: DOMENICA JARA ([id number])[facility])[address] [place] [address] IPF 2 Normal [facility] Comment on above: Performed By: #### L AB294 ####Farm Contractor: DOMENICA JARA ([id number])[facility])[address] [place] [address] MCH (RBC) [Entitic mass] 29.5 pg Normal 26.0-34.0 [facility] Comment on above: Performed By: #### L AB294 ####Farm Contractor: DOMENICA JARA ([id number])[facility])[address] [place] [address] MCHC 29.9 % Low 30.5-36.0 [facility] Comment on above: Performed By: #### L AB294 ####Farm Contractor: DOMENICA JARA ([phone])[facility])[address] [place] [address] MCV (RBC) [Entitic vol] 98.9 fL Normal 77.0-99.0 S [facility] Comment on above: Performed By: #### L AB294 ####Farm Contractor: DOMENICA JARA ([phone])[facility])[address] [place] [address] Platelet mean volume (Bld) [Entitic vol] 9.1 fL Normal 9.0-12.7 [facility] Comment on above: Performed By: #### L AB294 ####Farm Contractor: DOMENICA JARA ([phone])[facility] ([facility])[address] [place] [address] Platelets (Bld) [#/Vol] 397 10*3/uL Normal 140-440 [facility] Comment on above: Performed By: #### L [id number] ####Farm Contractor: DOMENICA JARA ([id number])[facility])[address] [place] [address] RBC (Bld) [#/Vol] 2.81 10*6/uL Low 4.40-5.90 [facility] Comment on above: Performed By: #### L AB294 ####Farm Contractor: DOMENICA JARA ([phone])[facility] ([facility])[address] [place] [address] WBC (Bld) [#/Vol] 8.9 10*3/uL Normal 3.6-10.7 [facility] Comment on above: Performed By: #### L [id number] ####Farm Contractor: DOMENICA JARA ([phone])[facility])[address] [place] [address] CBC panel Auto (Bld)Ordered By: Victorino Graham on 03-03-2025 Erythrocyte distribution width (RBC) [Ratio] 20.9 % High 11.5 - 15.0 % [facility] Hematocrit (Bld) [Volume fraction] 27.8 % Low 40.0 - 52.0 % [facility] Hemoglobin (Bld) [Mass/Vol] 8.3 g/dL Low 13.0 - 18.0 g/dL [facility] Interpretation and review of laboratory results Abnormal [facility] IPF 2 [facility] MCH (RBC) [Entitic mass] 29.5 pg 26. 0 - 34.0 pg [facility] MCHC (RBC) [Mass/Vol] 29.9 % Low 30.5 - 36.0 % [facility] MCV (RBC) [Entitic vol] 98.9 fL 77.0 - 99.0 fL [facility] Platelet mean volume (Bld) [Entitic vol] 9.1 fL 9.0 - 12.7 fL [facility] Platelets (Bld) [#/Vol] 397 10*3/uL 140 - 440 10*3/uL [facility] RBC (Bld) [#/Vol] 2.81 10*6/uL Low 4.40 - 5.9 0 10*6/uL [facility] WBC (Bld) [#/Vol] 8.9 10*3/uL 3.6 - 10.7 10*3/uL [facility] Laboratory - Coagulationon 0 03-03-2025 PT Coag (Bld) [Time] 16.2 s High 9.0 - 12.0 s [facility] No Panel Informationon 03-03 Interpretation and review of laboratory results Abnormal [facility] Nursing Noteon 03-03-2025 Nursing Note Normal [facility] Nursing Note In patient's chart, d/t patient being on his call light excessively and finally telling me he wants something for pain. Please see eMAR for administration Normal [facility] PROTHROMBIN TIMEon INR Coag (PPP) [Relative time] 1.6 {INR} High 0.9-1.1 [facility] Comment on above: Result Comment: Vaughn mmended Anticoagulant Therapy: SEE BELOW----- INR of 2.0 - 3.0 : - Prophylaxis of Venous Thrombosis (high-risk surgery) - Treatment of Venous Thrombosis - Treatment of Pulmonary Embolism (Includes tissue heart valves, Acute Myocardial Infarction to prevent systemic embolism, Valvular Heart Disease, and Atrial Fibrillation)----- INR of 2.5 - 3.5 : - Mechanical Prosthetic Valves (high risk) - If oral anticoagulant therapy is used to prevent Myocardial Infarction Performed By: #### L AB325, [id number] ####Farm Contractor: DOMENICA JARA ([phone])[facility] ([facility])[address] [place] [address] PT Coag (PPP) [Time] 16.2 s High 9.0-12.0 [facility] Comment on above: Performed By: #### L AB325, [id number] ####Farm Contractor: DOMENICA JARA ([phone])[facility] [place] [address] PT Coag (Bld) [Time]on 03-03 INR Coag (PPP) [Relative time] 1.6 {INR} High 0.9 - 1.1 [facility] Progress Noteon 03-03-2025 Progress Note Normal [facility] Progress Note Normal [facility] Progress Note Normal [facility] aPTT Coag (Bld) [Time]on aPTT Coag (PPP) [Time] 66.2 s High 20.0 - 30.5 s [facility] Interpretation and review of laboratory results Abnormal [facility] aPTT Coag (PPP) [Time] 52.4 s High 20.0 - 30.5 s [facility] 30on 03-02-2025 30 Switch to augmentin 500mg q24 (to be taken after HD on HD days) until 03/10/25. Team aware of discharge plan Waiting for INR to be in therapeutic range ID will sign off Please re consult if needed Hussain Quintana MD 03/02/2025 12:43 PM Normal [facility] 30 Normal [facility] [id number] 03-02-2025 [id number] Normal [facility] APTTon 03-02-2025 aPTT Coag (Bld) [Time] 68.9 s High 20.0-30.5 [facility] Comment on above: Result Comment: ARPAN Kaplan COMMENTS:NOTE: The therapeutic time for Heparin anticoagulation, based on Xa activity inhibition, is an APTT of 46-80 seconds. Performed By: #### L AB325 ####Farm Contractor: DOMENICA JARA ([phone])[facility])[address] [place] [address] aPTT Coag (Bld) [Time] 44.7 s High 20.0-30.5 [facility] Comment on above: Result Comment: ARPAN Kaplan COMMENTS:NOTE: The therapeutic time for Heparin anticoagulation, based on Xa activity inhibition, is an APTT of 46-80 seconds. Performed By: #### L AB325 ####Farm Contractor: DOMENICA JARA ([phone])[facility])[address] [place] [address] aPTT Coag (Bld) [Time] 56.5 s High 20.0-30.5 [facility] Comment on above: Result Comment: ARPAN Kaplan COMMENTS:NOTE: The therapeutic time for Heparin anticoagulation, based on Xa activity inhibition, is an APTT of 46-80 seconds. Performed By: #### L AB325 ####Farm Contractor: DOMENICA JARA ([phone])[facility])[address] [place] [address] aPTT Coag (Bld) [Time] 44.7 s High 20.0-30.5 [facility] Comment on above: Result Comment: ARPAN Kaplan COMMENTS:NOTE: The therapeutic time for Heparin anticoagulation, based on Xa activity inhibition, is an APTT of 46-80 seconds. Performed By: #### L AB320, [id number] ####Farm Contractor: DOMENICA JARA ([id number])[facility] ([facility])[address] [place] [address] BASIC METABOLIC PANELon 06-0 -2024 Anion gap [Moles/Vol] 11 mmol/L Normal 3-13 [facility] Comment on above: Performed By: #### L AB15 ####Farm Contractor: DOMENICA [id number])[facility] ([facility])[address] [place] [address] Calcium [Mass/Vol] 9.2 mg/dL Normal 8.4-10.2 [facility] Comment on above: Performed By: #### L AB15 ####Farm Contractor: DOMENICA JARA ([phone])[facility] [place] [address] Chloride [Moles/Vol] 102 mmol/L Normal 98-107 [facility] Comment on above: Performed By: #### L AB15 ####Farm Contractor: DOMENICA JARA ([phone])[facility] ([facility])[address] [place] [address] CO2 [Moles/Vol] 26 mmol/L Normal 22-29 [facility] Comment on above: Performed By: #### L AB15 ####Farm Contractor: DOMENICA JARA ([phone])[facility] ([facility])[address] [place] [address] Creatinine [Mass/Vol] 2.53 mg/dL High 0.72-1.25 [facility] Comment on above: Performed By: #### L AB15 ####Farm Contractor: DOMNEICA JARA ([phone])[facility] ([facility])[address] [place] [address] [place] GLOMERULAR FILTRATION RATE ML/MIN/1.73 SQ M.PREDICTED 28.5 mL/min/1.73m*2 Low >60.0 [facility] Comment on above: Result Comment: Calc ulation based on the Chronic Kidney Disease Epidemiology Collaboration (CKD-EPI) equation refit without adjustment for race Performed By: #### L AB15 ####Farm Contractor: DOMENICA JARA ([id number])[facility] ([facility])[address] [place] [address] [place] Glucose [Mass/Vol] 107 mg/dL High 74-100 [facility] Comment on above: Performed By: #### L AB15 ####Farm Contractor: DOMENICA JARA ([id number])[facility] ([facility])[address] [place] [address] [place] Potassium [Moles/Vol] 4.6 mmol/L Normal 3.5-5.1 [facility] Comment on above: Result Comment: [facility] potassium values may be up to 0.5 mmol/L lower than serum values. Performed By: #### L AB15 ####Farm Contractor: DOMENICA JARA ([phone])[facility] ([facility])[address] [place] [address] Sodium [Moles/Vol] 139 mmol/L Normal 136-145 [facility] Comment on above: Performed By: #### L AB15 ####Farm Contractor: DOMENICA JARA ([id number])[facility] ([facility])[address] [place] [address] Urea nitrogen [Mass/Vol] 16 mg/dL Normal 9-23 [facility] Comment on above: Performed By: #### L AB15 ####Farm Contractor: DOMENICA JARA ([id number])[facility] ([facility])[address] [place] [address] Basic metabolic 1998 panelon 03-02-2025 Anion gap [Moles/Vol] 11 mmol/L 3 - 13 mmol/L [facility] Calcium [Mass/Vol] 9.2 mg/dL 8.4 - 10. 2 mg/dL [facility] Chloride [Moles/Vol] 102 mmol/L 98 - 10 7 mmol/L [facility] CO2 [Moles/Vol] 26 mmol/L 22 - 29 mmol/L [facility] Creatinine [Mass/Vol] 2.53 mg/dL High 0.72 - 1.25 mg/dL [facility] GFR/1.73 sq M.predicted (S/P/Bld) [Vol rate/Area] 28.5 mL/min Low - PINF [facility] Glucose [Mass/Vol] 107 mg/dL High 74 - 100 mg/dL [facility] Interpretation and review of laboratory results Abnormal [facility] Potassium [Moles/Vol] 4.6 mmol/L 3.5 - 5.1 mmol/L [facility] Sodium [Moles/Vol] 139 mmol/L 136 - 145 mmol/L [facility] Urea nitrogen [Mass/Vol] 16 mg/dL 9 - 23 mg/d L [facility] CBC (HEMOGRAM)on 03-02-2025 Erythrocyte distribution width (RBC) [Ratio] 20.1 % High 11.5-15.0 [facility] Comment on above: Performed By: #### L [id number] ####Farm Contractor: DOMENICA JARA ([id number])[facility])[address] [place] [address] Hematocrit (Bld) [Volume fraction] 25.4 % Low 40.0-52.0 [facility] Comment on above: Performed By: #### L AB294 ####Farm Contractor: DOMENICA JARA ([phone])[facility])[address] [place] [address] Hemoglobin (Bld) [Mass/Vol] 7.7 g/dL Low 13.0-18.0 [facility] Comment on above: Performed By: #### L AB294 ####Farm Contractor: DOMENICA JARA ([id number])[facility])[address] [place] [address] IPF 2 Normal [facility] Comment on above: Performed By: #### L AB294 ####Farm Contractor: DOMENICA JARA ([id number])[facility])[address] [place] [address] MCH (RBC) [Entitic mass] 29.7 pg Normal 26.0-34.0 [facility] Comment on above: Performed By: #### L AB294 ####Farm Contractor: DOMENICA JARA ([id number])[facility])[address] [place] [address] MCHC 30.3 % Low 30.5-36.0 [facility] Comment on above: Performed By: #### L AB294 ####Farm Contractor: DOMENICA JARA ([id number])[facility])[address] [place] [address] MCV (RBC) [Entitic vol] 98.1 fL Normal 77.0-99.0 [facility] Comment on above: Performed By: #### L AB294 ####Farm Contractor: DOMENICA JARA ([id number])[facility] ([facility])[address] [place] [address] Platelet mean volume (Bld) [Entitic vol] 9.0 fL Normal 9.0-12.7 [facility] Comment on above: Performed By: #### L AB294 ####Farm Contractor: DOMENICA JARA ([id number])[facility] ([facility])[address] [place] [address] Platelets (Bld) [#/Vol] 354 10*3/uL Normal 140-440 [facility] Comment on above: Performed By: #### L AB294 ####Farm Contractor: DOMENICA JARA ([id number])[facility] ([facility])[address] [place] [address] RBC (Bld) [#/Vol] 2.59 10*6/uL Low 4.40-5.90 [facility] Comment on above: Performed By: #### L AB294 ####Farm Contractor: DOMENICA JARA ([phone])[facility] ([facility])[address] [place] [address] WBC (Bld) [#/Vol] 7.4 10*3/uL Normal 3.6-10.7 [facility] Comment on above: Performed By: #### L AB294 ####Farm Contractor: DOMENICA JARA ([id number])[facility] ([facility])[address] [place] [address] CBC panel Auto (Bld)Ordered By: Callie Steele on 03-02-2025 Erythrocyte distribution width (RBC) [Ratio] 20.1 % High 11.5 - 15.0 % [facility] Hematocrit (Bld) [Volume fraction] 25.4 % Low 40.0 - 52.0 % [facility] Hemoglobin (Bld) [Mass/Vol] 7.7 g/dL Low 13.0 - 18.0 g/dL [facility] Interpretation and review of laboratory results Abnormal [facility] IPF 2 [facility] MCH (RBC) [Entitic mass] 29.7 pg 26. 0 - 34.0 pg [facility] MCHC (RBC) [Mass/Vol] 30.3 % Low 30.5 - 36.0 % [facility] MCV (RBC) [Entitic vol] 98.1 fL 77.0 - 99.0 fL [facility] Platelet mean volume (Bld) [Entitic vol] 9 fL 9.0 - 12.7 fL [facility] Platelets (Bld) [#/Vol] 354 10*3/uL 140 - 440 10*3/uL [facility] RBC (Bld) [#/Vol] 2.59 10*6/uL Low 4.40 - 5.9 0 10*6/uL [facility] WBC (Bld) [#/Vol] 7.4 10*3/uL 3.6 - 10.7 10*3/uL [facility] Laboratory - Coagulationon 0 03-02-2025 PT Coag (Bld) [Time] 14.7 s High 9.0 - 12.0 s [facility] No Panel Informationon 03-02 Interpretation and review of laboratory results Abnormal [facility] PROTHROMBIN TIMEon INR Coag (PPP) [Relative time] 1.4 {INR} High 0.9-1.1 [facility] Comment on above: Result Comment: Vaughn mmended Anticoagulant Therapy: SEE BELOW----- INR of 2.0 - 3.0 : - Prophylaxis of Venous Thrombosis (high-risk surgery) - Treatment of Venous Thrombosis - Treatment of Pulmonary Embolism (Includes tissue heart valves, Acute Myocardial Infarction to prevent systemic embolism, Valvular Heart Disease, and Atrial Fibrillation)----- INR of 2.5 - 3.5 : - Mechanical Prosthetic Valves (high risk) - If oral anticoagulant therapy is used to prevent Myocardial Infarction Performed By: #### L AB320, [id number] ####Farm Contractor: DOMENICA JARA ([id number])[address] PT Coag (PPP) [Time] 14.7 s High 9.0-12.0 [facility] Comment on above: Performed By: #### L AB320, [id number] ####Farm Contractor: DOMENICA JARA ([id number])[facility] ([facility])[address] [place] [address] PT Coag (Bld) [Time]on 03-02 INR Coag (PPP) [Relative time] 1.4 {INR} High 0.9 - 1.1 [facility] Progress Noteon 03-02-2025 Progress Note Normal [facility] Progress Note Normal [facility] Progress Note Normal [facility] aPTT Coag (Bld) [Time]on aPTT Coag (PPP) [Time] 68.9 s High 20.0 - 30.5 s [facility] Interpretation and review of laboratory results Abnormal [facility] aPTT Coag (PPP) [Time] 44.7 s High 20.0 - 30.5 s [facility] Interpretation and review of laboratory results Abnormal [facility] aPTT Coag (PPP) [Time] 56.5 s High 20.0 - 30.5 s [facility] Interpretation and review of laboratory results Abnormal [facility] aPTT Coag (PPP) [Time] 44.7 s High 20.0 - 30.5 s [facility] 30on 03-01-2025 30 Normal [facility] [id number] 03-01-2025 [id number] Discharge med list and updated notes transmitted to [facility] via [facility] per TCC request. [facility] [id number] [facility] APTTon 03-01-2025 aPTT Coag (Bld) [Time] 51.3 s High 20.0-30.5 [facility] Comment on above: Result Comment: ARPAN [facility] COMMENTS:NOTE: The therapeutic time for Heparin anticoagulation, based on Xa activity inhibition, is an APTT of 46-80 seconds. Performed By: #### L AB320, [id number] ####Farm Contractor: DOMENICA JARA ([id number])[facility] ([facility])[address] [place] [address] BASIC METABOLIC PANELon 06-0 Anion gap [Moles/Vol] 13 mmol/L Normal 3-13 [facility] Comment on above: Performed By: #### L AB15 ####Farm Contractor: DOMENICA JARA ([id number])[facility] ([facility])[address] [place] [address] Calcium [Mass/Vol] 9.6 mg/dL Normal 8.4-10.2 [facility] Comment on above: Performed By: #### L AB15 ####Farm Contractor: DOMENICA JARA ([id number])[facility] [place] [address] Chloride [Moles/Vol] 102 mmol/L Normal 98-107 [facility] Comment on above: Performed By: #### L AB15 ####Farm Contractor: DOMENICA JARA ([id number])[facility] ([facility])[address] [place] [address] CO2 [Moles/Vol] 23 mmol/L Normal 22-29 [facility] Comment on above: Performed By: #### L AB15 ####Farm Contractor: DOMENICA JARA ([id number])[facility] ([facility])[address] [place] [address] Creatinine [Mass/Vol] 3.73 mg/dL High 0.72-1.25 [facility] Comment on above: Performed By: #### L AB15 ####Farm Contractor: DOMENICA JARA ([phone])[facility])[address] [place] [address] GLOMERULAR FILTRATION RATE ML/MIN/1.73 SQ M.PREDICTED 17.9 mL/min/1.73m*2 Low >60.0 [facility] Comment on above: Result Comment: Calc ulation based on the Chronic Kidney Disease Epidemiology Collaboration (CKD-EPI) equation refit without adjustment for race Performed By: #### L AB15 ####Farm Contractor: DOMENICA JARA ([id number])[facility] ([facility])[address] [place] [address] Glucose [Mass/Vol] 87 mg/dL Normal 74-100 [facility] Comment on above: Performed By: #### L AB15 ####Farm Contractor: DOMENICA JARA ([id number])[facility] ([facility])[address] [place] [address] Potassium [Moles/Vol] 5.8 mmol/L High 3.5-5.1 [facility] Comment on above: Result Comment: [facility] potassium values may be up to 0.5 mmol/L lower than serum values. Performed By: #### L AB15 ####Farm Contractor: DOMENICA JARA ([phone])[facility] ([facility])[address] [place] [address] Sodium [Moles/Vol] 138 mmol/L Normal 136-145 [facility] Comment on above: Performed By: #### L AB15 ####Farm Contractor: DOMENICA JARA ([id number])[facility] ([facility])[address] [place] [address] Urea nitrogen [Mass/Vol] 28 mg/dL High 9-23 [facility] Comment on above: Performed By: #### L AB15 ####Farm Contractor: DOMENICA JARA ([id number])[facility] ([facility])[address] [place] [address] Basic metabolic 1998 panelon 03-01-2025 Anion gap [Moles/Vol] 13 mmol/L 3 - 13 mmol/L [facility] Calcium [Mass/Vol] 9.6 mg/dL 8.4 - 10. 2 mg/dL [facility] Chloride [Moles/Vol] 102 mmol/L 98 - 10 7 mmol/L [facility] CO2 [Moles/Vol] 23 mmol/L 22 - 29 mmol/L [facility] Creatinine [Mass/Vol] 3.73 mg/dL High 0.72 - 1.25 mg/dL [facility] GFR/1.73 sq M.predicted (S/P/Bld) [Vol rate/Area] 17.9 mL/min Low - PINF [facility] Glucose [Mass/Vol] 87 mg/dL 74 - 100 mg/dL [facility] Interpretation and review of laboratory results Abnormal [facility] Potassium [Moles/Vol] 5.8 mmol/L High 3.5 - 5.1 mmol/L [facility] Sodium [Moles/Vol] 138 mmol/L 136 - 145 mmol/L [facility] Urea nitrogen [Mass/Vol] 28 mg/dL High 9 - 23 mg/d L [facility] CBC (HEMOGRAM)on 03-01-2025 Erythrocyte distribution width (RBC) [Ratio] 19.7 % High 11.5-15.0 [facility] Comment on above: Performed By: #### L [id number] ####Farm Contractor: DOMENICA JARA ([phone])[facility])[address] [place] [address] Hematocrit (Bld) [Volume fraction] 26.9 % Low 40.0-52.0 [facility] Comment on above: Performed By: #### L AB294 ####Farm Contractor: DOMENICA JARA ([phone])[facility])[address] [place] [address] Hemoglobin (Bld) [Mass/Vol] 8.0 g/dL Low 13.0-18.0 [facility] Comment on above: Performed By: #### L AB294 ####Farm Contractor: DOMENICA JARA ([id number])[facility])[address] [place] [address] MCH (RBC) [Entitic mass] 28.8 pg Normal 26.0-34.0 [facility] Comment on above: Performed By: #### L AB294 ####Farm Contractor: DOMENICA JARA ([phone])[facility])[address] [place] [address] MCHC 29.7 % Low 30.5-36.0 [facility] Comment on above: Performed By: #### L AB294 ####Farm Contractor: DOMENICA JARA ([id number])[facility])[address] [place] [address] MCV (RBC) [Entitic vol] 96.8 fL Normal 77.0-99.0 S [facility] Comment on above: Performed By: #### L AB294 ####Farm Contractor: DOMENICA JARA ([phone])[facility])[address] [place] [address] Platelet mean volume (Bld) [Entitic vol] 8.7 fL Low 9.0-12.7 [facility] Comment on above: Performed By: #### L AB294 ####Farm Contractor: DOMENICA JARA ([id number])[facility] ([facility])[address] [place] [address] Platelets (Bld) [#/Vol] 306 10*3/uL Normal 140-440 [facility] Comment on above: Performed By: #### L AB294 ####Farm Contractor: DOMENICA JARA ([id number])[facility])[address] [place] [address] RBC (Bld) [#/Vol] 2.78 10*6/uL Low 4.40-5.90 [facility] Comment on above: Performed By: #### L AB294 ####Farm Contractor: DOMENICA JARA ([id number])[facility])[address] [place] [address] WBC (Bld) [#/Vol] 7.5 10*3/uL Normal 3.6-10.7 [facility] Comment on above: Performed By: #### L [id number] ####Farm Contractor: DOMENICA JARA ([id number])[facility])[address] [place] [address] CBC panel Auto (Bld)on 03-01 Erythrocyte distribution width (RBC) [Ratio] 19.7 % High 11.5 - 15.0 % [facility] Hematocrit (Bld) [Volume fraction] 26.9 % Low 40.0 - 52.0 % [facility] Hemoglobin (Bld) [Mass/Vol] 8 g/dL Low 13.0 - 18.0 g/dL [facility] Interpretation and review of laboratory results Abnormal [facility] MCH (RBC) [Entitic mass] 28.8 pg 26. 0 - 34.0 pg [facility] MCHC (RBC) [Mass/Vol] 29.7 % Low 30.5 - 36.0 % [facility] MCV (RBC) [Entitic vol] 96.8 fL 77.0 - 99.0 fL [facility] Platelet mean volume (Bld) [Entitic vol] 8.7 fL Low 9.0 - 12.7 fL [facility] Platelets (Bld) [#/Vol] 306 10*3/uL 140 - 440 10*3/uL [facility] RBC (Bld) [#/Vol] 2.78 10*6/uL Low 4.40 - 5.9 0 10*6/uL [facility] WBC (Bld) [#/Vol] 7.5 10*3/uL 3.6 - 10.7 10*3/uL [facility] Laboratory - Coagulationon 0 03-01-2025 PT Coag (Bld) [Time] 14.3 s High 9.0 - 12.0 s [facility] No Panel Informationon 03-01 Interpretation and review of laboratory results Abnormal [facility] Nursing Noteon 03-01-2025 Nursing Note Normal [facility] PROTHROMBIN TIMEon INR Coag (PPP) [Relative time] 1.4 {INR} High 0.9-1.1 [facility] Comment on above: Result Comment: Vaughn mmended Anticoagulant Therapy: SEE BELOW----- INR of 2.0 - 3.0 : - Prophylaxis of Venous Thrombosis (high-risk surgery) - Treatment of Venous Thrombosis - Treatment of Pulmonary Embolism (Includes tissue heart valves, Acute Myocardial Infarction to prevent systemic embolism, Valvular Heart Disease, and Atrial Fibrillation)----- INR of 2.5 - 3.5 : - Mechanical Prosthetic Valves (high risk) - If oral anticoagulant therapy is used to prevent Myocardial Infarction Performed By: #### L AB320, [id number] ####Farm Contractor: DOMENICA JARA ([id number])[facility] ([address] PT Coag (PPP) [Time] 14.3 s High 9.0-12.0 [facility] Comment on above: Performed By: #### L AB320, [id number] ####Farm Contractor: DOMENICA JARA ([id number])[facility] ([facility])[address] [place] [address] PT Coag (Bld) [Time]on 03-01 INR Coag (PPP) [Relative time] 1.4 {INR} High 0.9 - 1.1 [facility] Progress Noteon 03-01-2025 Progress Note Normal [facility] Progress Note Normal [facility] Progress Note Normal [facility] Progress Note Normal [facility] Progress Note PHYSICAL THERAPY [facility] Name/MRN: Jair Snyder ([id number]) Date: 03/01/2025 Leaving for dialysis. Return later time/date for PT. Merlene León, JOY Normal [facility] Progress Note Normal [facility] aPTT Coag (Bld) [Time]on aPTT Coag (PPP) [Time] 51.3 s High 20.0 - 30.5 s [facility] 30on 02-28-2025 30 Normal [facility] 30 Normal [facility] [id number] 02-28-2025 [id number] Auth is back however can not discharge still on hep gtt- auth good thru 03/02- hoping by Wednesday AM . Updated snf . [facility] [phone] Transport requested in [employer] in will call per TCC. [facility] [phone] Tasked [employer] to set up transport in will call, not ready for DC, Auth pending [facility] APTTon 02-28-2025 aPTT Coag (Bld) [Time] 47.7 s High 20.0-30.5 [facility] Comment on above: Result Comment: ARPAN Kaplan COMMENTS:NOTE: The therapeutic time for Heparin anticoagulation, based on Xa activity inhibition, is an APTT of 46-80 seconds. Performed By: #### L AB325, [id number] ####Farm Contractor: DOMENICA JARA ([id number])[facility] ([facility])[address] [place] [address] BASIC METABOLIC PANELon 06-0 Anion gap [Moles/Vol] 11 mmol/L Normal 3-13 [facility] Comment on above: Performed By: #### L AB15 ####Farm Contractor: DOMENICA JARA ([id number])[facility] ([facility])[address] [place] [address] Calcium [Mass/Vol] 9.3 mg/dL Normal 8.4-10.2 [facility] Comment on above: Performed By: #### L AB15 ####Farm Contractor: DOMENICA JARA ([id number])[facility] ([facility])[address] [place] [address] Chloride [Moles/Vol] 100 mmol/L Normal 98-107 [facility] Comment on above: Performed By: #### L AB15 ####Farm Contractor: DOMENICA JARA ([id number])[facility] ([facility] [place] [address] CO2 [Moles/Vol] 27 mmol/L Normal 22-29 [facility] Comment on above: Performed By: #### L AB15 ####Farm Contractor: DOMENICA JARA ([id number])[facility] ([facility])[address] [place] [address] Creatinine [Mass/Vol] 3.06 mg/dL High 0.72-1.25 [facility] Comment on above: Performed By: #### L AB15 ####Farm Contractor: DOMENICA JARA ([phone])[facility] ([facility])[address] [place] [address] [place] GLOMERULAR FILTRATION RATE ML/MIN/1.73 SQ M.PREDICTED 22.7 mL/min/1.73m*2 Low >60.0 [facility] Comment on above: Result Comment: Calc ulation based on the Chronic Kidney Disease Epidemiology Collaboration (CKD-EPI) equation refit without adjustment for race Performed By: #### L AB15 ####Farm Contractor: DOMENICA JARA ([phone])[facility])[address] [place] [address] Glucose [Mass/Vol] 94 mg/dL Normal 74-100 [facility] Comment on above: Performed By: #### L AB15 ####Farm Contractor: DOMENICA JARA ([id number])[facility])[address] [place] [address] Potassium [Moles/Vol] 5.0 mmol/L Normal 3.5-5.1 [facility] Comment on above: Result Comment: [facility] potassium values may be up to 0.5 mmol/L lower than serum values. Performed By: #### L AB15 ####Farm Contractor: DOMENICA JARA ([phone])[facility] ([facility])[address] [place] [address] Sodium [Moles/Vol] 138 mmol/L Normal 136-145 [facility] Comment on above: Performed By: #### L AB15 ####Farm Contractor: DOMENICA JARA ([id number])[facility])[address] [place] [address] Urea nitrogen [Mass/Vol] 19 mg/dL Normal 9-23 [facility] Comment on above: Performed By: #### L AB15 ####Farm Contractor: DOMENICA JARA ([phone])[facility] [facility])[address] [place] [address] Basic metabolic 1998 panelon 02-28-2025 Anion gap [Moles/Vol] 11 mmol/L 3 - 13 mmol/L [facility] Calcium [Mass/Vol] 9.3 mg/dL 8.4 - 10. 2 mg/dL [facility] Chloride [Moles/Vol] 100 mmol/L 98 - 10 7 mmol/L [facility] CO2 [Moles/Vol] 27 mmol/L 22 - 29 mmol/L [facility] Creatinine [Mass/Vol] 3.06 mg/dL High 0.72 - 1.25 mg/dL [facility] GFR/1.73 sq M.predicted (S/P/Bld) [Vol rate/Area] 22.7 mL/min Low - PINF [facility] Glucose [Mass/Vol] 94 mg/dL 74 - 100 mg/dL [facility] Interpretation and review of laboratory results Abnormal [facility] Potassium [Moles/Vol] 5 mmol/L 3.5 - 5.1 mmol/L [facility] Sodium [Moles/Vol] 138 mmol/L 136 - 145 mmol/L [facility] Urea nitrogen [Mass/Vol] 19 mg/dL 9 - 23 mg/d L [facility] CBC (HEMOGRAM)on 02-28-2025 Erythrocyte distribution width (RBC) [Ratio] 19.8 % High 11.5-15.0 [facility] Comment on above: Performed By: #### L [id number] ####Farm Contractor: DOMENICA JARA ([id number])[address] Hematocrit (Bld) [Volume fraction] 26.9 % Low 40.0-52.0 [facility] Comment on above: Performed By: #### L [id number] ####Farm Contractor: DOMENICA JARA ([id number])[address] Hemoglobin (Bld) [Mass/Vol] 8.2 g/dL Low 13.0-18.0 [facility] Comment on above: Performed By: #### L [id number] ####Farm Contractor: DOMENICA JARA ([id number])[facility])[address] [place] [address] MCH (RBC) [Entitic mass] 29.3 pg Normal 26.0-34.0 [facility] Comment on above: Performed By: #### L [id number] ####Farm Contractor: DOMENICA JARA ([id number])[facility])[address] [place] [address] MCHC 30.5 % Normal 30.5-36.0 [facility] Comment on above: Performed By: #### L [id number] ####Farm Contractor: DOMENICA JARA ([id number])[facility])[address] [place] [address] MCV (RBC) [Entitic vol] 96.1 fL Normal 77.0-99.0 S [facility] Comment on above: Performed By: #### L [id number] ####Farm Contractor: DOMENICA JARA ([id number])[facility])[address] [place] [address] Platelet mean volume (Bld) [Entitic vol] 9.0 fL Normal 9.0-12.7 [facility] Comment on above: Performed By: #### L [id number] ####Farm Contractor: DOMENICA JARA ([id number])[facility])[address] [place] [address] Platelets (Bld) [#/Vol] 324 10*3/uL Normal 140-440 [facility] Comment on above: Performed By: #### L [id number] ####Farm Contractor: DOMENICA JARA ([id number])[facility])[address] [place] [address] RBC (Bld) [#/Vol] 2.80 10*6/uL Low 4.40-5.90 [facility] Comment on above: Performed By: #### L [id number] ####Farm Contractor: DOMENICA JARA ([id number])[address] WBC (Bld) [#/Vol] 8.0 10*3/uL Normal 3.6-10.7 [facility] Comment on above: Performed By: #### L [id number] ####Farm Contractor: DOMENICA JARA ([id number])[facility])[address] [place] [address] CBC panel Auto (Bld)Ordered By: Giancarlo Lakhani on 02-28-2025 Erythrocyte distribution width (RBC) [Ratio] 19.8 % High 11.5 - 15.0 % [facility] Hematocrit (Bld) [Volume fraction] 26.9 % Low 40.0 - 52.0 % [facility] Hemoglobin (Bld) [Mass/Vol] 8.2 g/dL Low 13.0 - 18.0 g/dL [facility] Interpretation and review of laboratory results Abnormal [facility] MCH (RBC) [Entitic mass] 29.3 pg 26. 0 - 34.0 pg [facility] MCHC (RBC) [Mass/Vol] 30.5 % 30.5 - 36.0 % [facility] MCV (RBC) [Entitic vol] 96.1 fL 77.0 - 99.0 fL [facility] Platelet mean volume (Bld) [Entitic vol] 9 fL 9.0 - 12.7 fL [facility] Platelets (Bld) [#/Vol] 324 10*3/uL 140 - 440 10*3/uL [facility] RBC (Bld) [#/Vol] 2.8 10*6/uL Low 4.40 - 5.9 0 10*6/uL [facility] WBC (Bld) [#/Vol] 8 10*3/uL 3.6 - 10.7 10*3/uL [facility] Laboratory - Coagulationon 0 02-28-2025 PT Coag (Bld) [Time] 14 s High 9.0 - 12.0 s [facility] No Panel Informationon 02-28 Interpretation and review of laboratory results Abnormal [facility] Nursing Noteon 02-28-2025 Nursing Note Normal [facility] PROTHROMBIN TIMEon INR Coag (PPP) [Relative time] 1.3 {INR} High 0.9-1.1 [facility] Comment on above: Result Comment: Vaughn mmended Anticoagulant Therapy: SEE BELOW----- INR of 2.0 - 3.0 : - Prophylaxis of Venous Thrombosis (high-risk surgery) - Treatment of Venous Thrombosis - Treatment of Pulmonary Embolism (Includes tissue heart valves, Acute Myocardial Infarction to prevent systemic embolism, Valvular Heart Disease, and Atrial Fibrillation)----- INR of 2.5 - 3.5 : - Mechanical Prosthetic Valves (high risk) - If oral anticoagulant therapy is used to prevent Myocardial Infarction Performed By: #### L AB325, [id number] ####Farm Contractor: DOMENICA JARA ([id number])[facility] ([place] [id number] [place] PT Coag (PPP) [Time] 14.0 s High 9.0-12.0 [facility] Comment on above: Performed By: #### L [id number], [id number] ####Farm Contractor: DOMENICA JARA ([id number])[facility] ([facility])[address] [place] [address] PT Coag (Bld) [Time]on 02-28 INR Coag (PPP) [Relative time] 1.3 {INR} High 0.9 - 1.1 [facility] Progress Noteon 02-28-2025 Progress Note Normal [facility] Progress Note Normal [facility] Progress Note Normal [facility] Progress Note Normal [facility] aPTT Coag (Bld) [Time]on aPTT Coag (PPP) [Time] 47.7 s High 20.0 - 30.5 s [facility] 30on 02-27-2025 30 Normal [facility] 30 Normal [facility] [id number] 02-27-2025 [id number] Normal [facility] APTTon 02-27-2025 aPTT Coag (Bld) [Time] 55.6 s High 20.0-30.5 [facility] Comment on above: Result Comment: ARPAN Kaplan COMMENTS:NOTE: The therapeutic time for Heparin anticoagulation, based on Xa activity inhibition, is an APTT of 46-80 seconds. Performed By: #### L AB325, [id number] ####Farm Contractor: DOMENICA JARA ([id number])[facility] ([facility])[address] [place] [address] Bacteria identified Cx Nom ( Bld)on 02-27-2025 Interpretation and review of laboratory results Normal [facility] Interpretation and review of laboratory results Normal [facility] CBC (HEMOGRAM)on 02-27-2025 Erythrocyte distribution width (RBC) [Ratio] 19.5 % High 11.5-15.0 [facility] Comment on above: Performed By: #### L [id number] ####Farm Contractor: DOMENICA JARA ([id number])[facility])[address] [place] [address] Hematocrit (Bld) [Volume fraction] 28.8 % Low 40.0-52.0 [facility] Comment on above: Performed By: #### L [id number] ####Farm Contractor: DOMENICA JARA ([id number])[facility])[address] [place] [address] Hemoglobin (Bld) [Mass/Vol] 8.6 g/dL Low 13.0-18.0 [facility] Comment on above: Performed By: #### L [id number] ####Farm Contractor: DOMENICA JARA ([id number])[facility])[address] [place] [address] MCH (RBC) [Entitic mass] 28.7 pg Normal 26.0-34.0 [facility] Comment on above: Performed By: #### L [id number] ####Farm Contractor: DOMENICA JARA ([id number])[facility] ([facility])[address] [place] [address] MCHC 29.9 % Low 30.5-36.0 [facility] Comment on above: Performed By: #### L [id number] ####Farm Contractor: DOMENICA JARA ([id number])[facility])[address] [place] [address] MCV (RBC) [Entitic vol] 96.0 fL Normal 77.0-99.0 S [facility] Comment on above: Performed By: #### L [id number] ####Farm Contractor: DOMENICA JARA ([id number])[facility])[address] [place] [address] Platelet mean volume (Bld) [Entitic vol] 8.9 fL Low 9.0-12.7 [facility] Comment on above: Performed By: #### L [id number] ####Farm Contractor: DOMENICA JARA ([id number])[facility])[address] [place] [address] Platelets (Bld) [#/Vol] 302 10*3/uL Normal 140-440 [facility] Comment on above: Performed By: #### L [id number] ####Farm Contractor: DOMENICA JARA ([id number])[facility])[address] [place] [address] RBC (Bld) [#/Vol] 3.00 10*6/uL Low 4.40-5.90 [facility] Comment on above: Performed By: #### L [id number] ####Farm Contractor: DOMENICA JARA ([id number])[address] WBC (Bld) [#/Vol] 7.9 10*3/uL Normal 3.6-10.7 [facility] Comment on above: Performed By: #### L [id number] ####Farm Contractor: DOMENICA JARA ([id number])[facility] ([facility])[address] [place] [address] CBC panel Auto (Bld)Ordered By: Brandy Ross on 02-27-2025 Erythrocyte distribution width (RBC) [Ratio] 19.5 % High 11.5 - 15.0 % [facility] Hematocrit (Bld) [Volume fraction] 28.8 % Low 40.0 - 52.0 % [facility] Hemoglobin (Bld) [Mass/Vol] 8.6 g/dL Low 13.0 - 18.0 g/dL [facility] Interpretation and review of laboratory results Abnormal [facility] MCH (RBC) [Entitic mass] 28.7 pg 26. 0 - 34.0 pg [facility] MCHC (RBC) [Mass/Vol] 29.9 % Low 30.5 - 36.0 % [facility] MCV (RBC) [Entitic vol] 96 fL 77.0 - 99.0 fL [facility] Platelet mean volume (Bld) [Entitic vol] 8.9 fL Low 9.0 - 12.7 fL [facility] Platelets (Bld) [#/Vol] 302 10*3/uL 140 - 440 10*3/uL [facility] RBC (Bld) [#/Vol] 3 10*6/uL Low 4.40 - 5.9 0 10*6/uL [facility] [employer] WBC (Bld) [#/Vol] 7.9 10*3/uL 3.6 - 10.7 10*3/uL [facility] ECG 12-LEADon 02-27-2025 ECG 12-LEAD IMPRESSION: Sinus rhythm Left atrial enlargement RBBB and LPFB Abnrm T, consider ischemia, anterolateral lds Compared to ECG 01/19/2025 06:31:48 Prolonged QT interval no longer present Electronically Signed On 02-27-2025 16:08:17 EDT by Ochoa Guido Normal [facility] Laboratory - Coagulationon 0 02-27-2025 PT Coag (Bld) [Time] 13.7 s High 9.0 - 12.0 s [facility] Laboratory - Microbiology an d Antimicrobial susceptibilityon 02-27-2025 Bacteria identified Cx Nom (Bld) No growth at 5 days [facility] [employer] Bacteria identified Cx Nom (Bld) No growth at 5 days [facility] [employer] No Panel InformationOrdered By: Ochoa Guido on 02-27-2025 P [place] 76 degrees [facility] [employer] Work Phone: SC Interval 150 ms [facility] [employer] Work Phone: QRS [place] 92 degrees [facility] [employer] Work Phone: QRSD Interval 124 ms [facility] Work Phone: QT Interval 417 ms [facility] [employer] Work Phone: QTC Interval 482 ms [facility] [employer] Work Phone: T Wave [place] 95 degrees [facility] [employer] Work Phone: [facility] [employer] Work Phone: No Panel Informationon 02-27 CV EPIPHANY [facility] Interpretation and review of laboratory results Abnormal [facility] Nursing Noteon 02-27-2025 Nursing Note Normal [facility] Nursing Note Normal [facility] PROTHROMBIN TIMEon INR Coag (PPP) [Relative time] 1.3 {INR} High 0.9-1.1 [facility] Comment on above: Result Comment: Vaughn mmended Anticoagulant Therapy: SEE BELOW----- INR of 2.0 - 3.0 : - Prophylaxis of Venous Thrombosis (high-risk surgery) - Treatment of Venous Thrombosis - Treatment of Pulmonary Embolism (Includes tissue heart valves, Acute Myocardial Infarction to prevent systemic embolism, Valvular Heart Disease, and Atrial Fibrillation)----- INR of 2.5 - 3.5 : - Mechanical Prosthetic Valves (high risk) - If oral anticoagulant therapy is used to prevent Myocardial Infarction Performed By: #### Tameka AB325, [id number] ####Farm Contractor: DOMENICA JARA ([id number])[facility] ([facility])[address] [place] [address] PT Coag (PPP) [Time] 13.7 s High 9.0-12.0 [facility] Comment on above: Performed By: #### Tameka AB325, [id number] ####Farm Contractor: DOMENICA JARA ([id number])[address] PT Coag (Bld) [Time]on 02-27 INR Coag (PPP) [Relative time] 1.3 {INR} High 0.9 - 1.1 [facility] Progress Noteon 02-27-2025 Progress Note Normal [facility] Progress [facility] Progress Note Normal [facility] Progress [facility] Progress Note Normal [facility] Progress Note Normal [facility] Vital signsOrdered By: Ochoa Guido on 02-27-2025 Heart rate 80 /min bpm [facility] [employer] Work Phone: aPTT Coag (Bld) [Time]on aPTT Coag (PPP) [Time] 55.6 s High 20.0 - 30.5 s [facility] 30on 02-26-2025 30 Normal [facility] [id number] 02-26-2025 [id number] Normal [facility] [id number] 02-26-2025 [id number] Getting updated therapy notes. Want to skill him at [facility]. Started on IV antibiotics for aspiration pneumonia. Continues on a heparin gtt. . [facility] [id number] Updated notes sent to [facility] via [facility] per [facility] request. Await review and response regarding ability to accept. TCC notified. [facility] 36on 02-26-2025 36 [facility] CBC W/Diff, Automatedon Absolute Neut Normal 2.0-7.7 [facility] Comment on above: Order Comment: 413-2 Result Comment: KIMBER ENT DISCHARGED Performed By: #### L 100.0100, L300.3900, L500.4050 #### [facility] [address] [place], [address] HCT Normal 40-54 [facility] Comment on above: Order Comment: 413-2 Result Comment: KIMBER ENT DISCHARGED Performed By: #### L 100.0100, L300.3900, L500.4050 #### [facility] [address] [place], [address] HGB Normal 13.0-16.5 [facility] Comment on above: Order Comment: 413-2 Result Comment: KIMBER ENT DISCHARGED Performed By: #### L 100.0100, L300.3900, L500.4050 #### [facility] [address] [place], [address] MCH Normal 27.0-32.0 [facility] Comment on above: Order Comment: 413-2 Result Comment: KIMBER ENT DISCHARGED Performed By: #### L 100.0100, L300.3900, L500.4050 #### [facility] [address] [place], [address] MCHC Normal 32-36 [facility] Comment on above: Order Comment: 413-2 Result Comment: KIMBER ENT DISCHARGED Performed By: #### L 100.0100, L300.3900, L500.4050 #### [facility] [address] [place], [address] MCV Normal 80-94 [facility] Comment on above: Order Comment: 413-2 Result Comment: KIMBER ENT DISCHARGED Performed By: #### L 100.0100, L300.3900, L500.4050 #### [facility] [address] [place], [address] NEUT% Normal 47-70 [facility] Comment on above: Order Comment: 413-2 Result Comment: KIMBER ENT DISCHARGED Performed By: #### L 100.0100, L300.3900, L500.4050 #### [facility] [address] [place], [address] PLT Normal 150-450 [facility] Comment on above: Order Comment: 413-2 Result Comment: KIMBER ENT DISCHARGED Performed By: #### L 100.0100, L300.3900, L500.4050 #### [facility] [address] [place], [address] RBC Normal 4.6-6.2 [facility] Comment on above: Order Comment: 413-2 Result Comment: KIMBER ENT DISCHARGED Performed By: #### L 100.0100, L300.3900, L500.4050 #### [facility] [address] [place], [address] RDW CV Normal 11.6-14.6 [facility] Comment on above: Order Comment: 413-2 Result Comment: KIMBER ENT DISCHARGED Performed By: #### L 100.0100, L300.3900, L500.4050 #### [facility] [address] [place], [address] RDW SD Normal 35.1-43.9 [facility] Comment on above: Order Comment: 413-2 Result Comment: KIMBER ENT DISCHARGED Performed By: #### L 100.0100, L300.3900, L500.4050 #### [facility] [address] [place], [address] WBC Normal 4.4-11.0 [facility] Comment on above: Order Comment: 413-2 Result Comment: KIMBER ENT DISCHARGED Performed By: #### L 100.0100, L300.3900, L500.4050 #### [facility] [address] [place], [address] Comprehensive Metabolic Prof ilon 02-26-2025 ALB Normal 3.5-5.0 [facility] Comment on above: Order Comment: 413-2 Result Comment: KIMBER ENT DISCHARGED Performed By: #### L 500.4050, L100.0100, L300.3900 #### [facility] [address] [place], [address] ALK PHOS Normal 40-129 [facility] Comment on above: Order Comment: 413-2 Result Comment: KIMBER ENT DISCHARGED Performed By: #### L 500.4050, L100.0100, L300.3900 #### [facility] [address] [place], [address] ALT Normal <=46 [facility] Comment on above: Order Comment: 413-2 Result Comment: KIMBER ENT DISCHARGED Performed By: #### L 500.4050, L100.0100, L300.3900 #### [facility] [address] [place], [address] AST Normal <=37 [facility] Comment on above: Order Comment: 413-2 Result Comment: KIMBER ENT DISCHARGED Performed By: #### L 500.4050, L100.0100, L300.3900 #### [facility] [address] [place], [address] BUN Normal 4-19 [facility] Comment on above: Order Comment: 413-2 Result Comment: KIMBER ENT DISCHARGED Performed By: #### L 500.4050, L100.0100, L300.3900 #### [facility] [address] [place], [address] BUN/CRE Normal 10-20 [facility] Comment on above: Order Comment: 413-2 Result Comment: KIMBER ENT DISCHARGED Performed By: #### L 500.4050, L100.0100, L300.3900 #### [facility] [address] [place], [address] Calcium Normal 7.6-11.0 [facility] Comment on above: Order Comment: 413-2 Result Comment: KIMBER ENT DISCHARGED Performed By: #### L 500.4050, L100.0100, L300.3900 #### [facility] [address] [place], [address] CL Normal 98-108 [facility] Comment on above: Order Comment: 413-2 Result Comment: KIMBER ENT DISCHARGED Performed By: #### L 500.4050, L100.0100, L300.3900 #### [facility] [address] [place], [address] CO2 Normal 21.0-32.0 [facility] Comment on above: Order Comment: 413-2 Result Comment: KIMBER ENT DISCHARGED Performed By: #### L 500.4050, L100.0100, L300.3900 #### [facility] [address] [place], [address] CREAT,SERUM Normal 0.70-1.20 [facility] Comment on above: Order Comment: 413-2 Result Comment: KIMBER ENT DISCHARGED Performed By: #### L 500.4050, L100.0100, L300.3900 #### [facility] [address] [place], [address] eGFR Normal >60 [facility] Comment on above: Order Comment: 413-2 Result Comment: KIMBER ENT DISCHARGED Performed By: #### L 500.4050, L100.0100, L300.3900 #### [facility] [address] [place], [address] GAP Normal 5-15 [facility] Comment on above: Order Comment: 413-2 Result Comment: KIMBER ENT DISCHARGED Performed By: #### L 500.4050, L100.0100, L300.3900 #### [facility] [address] [place], [address] GLU Normal 70-99 [facility] Comment on above: Order Comment: 413-2 Result Comment: KIMBER ENT DISCHARGED Performed By: #### L 500.4050, L100.0100, L300.3900 #### [facility] [address] [place], [address] Potassium Normal 3.3-5.1 [facility] Comment on above: Order Comment: 413-2 Result Comment: KIMBER ENT DISCHARGED Performed By: #### L 500.4050, L100.0100, L300.3900 #### [facility] [address] [place], [address] T BILI Normal 0.00-1.30 [facility] Comment on above: Order Comment: 413-2 Result Comment: KIMBER ENT DISCHARGED Performed By: #### L 500.4050, L100.0100, L300.3900 #### [facility] [address] [place], [address] T PROT Normal 5.9-8.4 [facility] Comment on above: Order Comment: 413-2 Result Comment: KIMBER ENT DISCHARGED Performed By: #### L 500.4050, L100.0100, L300.3900 #### [facility] [address] [place], [address] Comprehensive Metabolic Profil Normal 133-145 [facility] Comment on above: Order Comment: 413-2 Result Comment: KIMBER ENT DISCHARGED Performed By: #### L 500.4050, L100.0100, L300.3900 #### [facility] [place], [address] HIGH SENSITIVITY TROPONIN, S ERIAL, SECOND TESTon 02-26-2025 2H TROPONIN HS (SERIAL 2ND TROPONIN) 80 ng/L High <=35 [facility] Comment on above: Result Comment: 2h t roponin (2nd troponin) samples collected between 1h 40 min and 2h and 20 min of the baseline collection time can be utilized to interpret delta troponins as per [employer] algorithms. Samples collected outside this timeframe need to be interpreted clinically.Rising or falling troponin delta between 2 ??? 15 ng/L as compared to baseline value requires a 3rd serial troponin Performed By: #### L [id number] ####Farm Contractor: DOMENICA JARA ([id number])[facility] ([facility])[address] [place] [address] HIGH SENSITIVITY TROPONIN, S ERIAL, THIRD TESTon 02-26-2025 4H TROPONIN HS (SERIAL 3RD TROPONIN) 75 ng/L High <=35 [facility] Comment on above: Result Comment: 4h t roponin (3rd troponin) samples collected between 1h 40 min and 2h and 20 min of the 2h troponin collection time can be utilized to interpret delta troponins as per [employer] algorithms. Samples collected outside this timeframe need to be interpreted clinically.Rising or falling troponin delta between 2 ??? 15 ng/L as compared to 2h troponin valuerequires further evaluation. Performed By: #### L [id number] ####Farm Contractor: DOMENICA JARA ([id number])[facility] [place] [address] Laboratory - Coagulationon 0 02-26-2025 PT Coag (Bld) [Time] 13.5 s High 9.0 - 12.0 s [facility] No Panel Informationon 02-26 4h Troponin HS (Serial 3rd Troponin) 75 ng/L [facility] Interpretation and review of laboratory results Abnormal [facility] 2h Troponin HS (Serial 2nd Troponin) 80 ng/L [facility]/L [facility] Interpretation and review of laboratory results Abnormal [facility] Interpretation and review of laboratory results Abnormal [facility] Troponin HS Serial Baseline 84 ng/L High NINF - 35 ng/L [facility] Interpretation and review of laboratory results Abnormal [facility] PT Coag (Bld) [Time]on 02-26 INR Coag (PPP) [Relative time] 1.3 {INR} High 0.9 - 1.1 [facility] Progress Noteon 02-26-2025 Progress Note [facility] Progress [facility] Progress Note Normal [facility] Progress Note [facility] Progress Note [facility] Progress Note Normal [facility] Prothrombin Time w/INRon INR Normal [facility] Comment on above: Order Comment: 413-2 Result Comment: KIMBER ENT DISCHARGED Performed By: #### L 100.0100, L300.3900, L500.4050 #### [facility] Laboratory [address] [place], [address] PROTIME Normal 11.7-14.9 [facility] Comment on above: Order Comment: 413-2 Result Comment: KIMBER ENT DISCHARGED Performed By: #### L 100.0100, L300.3900, L500.4050 #### [facility] [address] [place], [address] aPTT Coag (Bld) [Time]on aPTT Coag (PPP) [Time] 48.2 s High 20.0 - 30.5 s [facility] 30on 02-25-2025 30 Normal [facility] 30 Normal [facility] APTTon 02-25-2025 aPTT Coag (Bld) [Time] 48.2 s High 20.0-30.5 [facility] Comment on above: Result Comment: ARPAN Kaplan COMMENTS:NOTE: The therapeutic time for Heparin anticoagulation, based on Xa activity inhibition, is an APTT of 46-80 seconds. Performed By: #### L AB325, [id number] ####Farm Contractor: DOMENICA JARA ([id number])[facility])[address] [place] [address] aPTT Coag (Bld) [Time] 49.5 s High 20.0-30.5 [facility] Comment on above: Result Comment: ARPAN Kaplan COMMENTS:NOTE: The therapeutic time for Heparin anticoagulation, based on Xa activity inhibition, is an APTT of 46-80 seconds. Performed By: #### L AB325, [id number] ####Farm Contractor: DOMENICA JARA ([id number])[facility])[address] [place] [address] CBC (HEMOGRAM)on 02-25-2025 Erythrocyte distribution width (RBC) [Ratio] 19.9 % High 11.5-15.0 [facility] Comment on above: Performed By: #### L [id number] ####Farm Contractor: DOMENICA JARA ([id number])[facility])[address] [place] [address] Hematocrit (Bld) [Volume fraction] 24.1 % Low 40.0-52.0 [facility] Comment on above: Performed By: #### L [id number] ####Farm Contractor: DOMENICA JARA ([id number])[facility])[address] [place] [address] Hemoglobin (Bld) [Mass/Vol] 7.6 g/dL Low 13.0-18.0 [facility] Comment on above: Performed By: #### L [id number] ####Farm Contractor: DOMENICA JARA ([id number])[facility])[address] [place] [address] MCH (RBC) [Entitic mass] 29.3 pg Normal 26.0-34.0 [facility] Comment on above: Performed By: #### L [id number] ####Farm Contractor: DOMENICA JARA ([id number])[facility])[address] [place] [address] MCHC 31.5 % Normal 30.5-36.0 [facility] Comment on above: Performed By: #### L [id number] ####Farm Contractor: DOMENICA JARA ([id number])[facility] ([facility])[address] [place] [address] MCV (RBC) [Entitic vol] 93.1 fL Normal 77.0-99.0 S [facility] Comment on above: Performed By: #### L [id number] ####Farm Contractor: DOMENICA JARA ([id number])[facility])[address] [place] [address] Platelet mean volume (Bld) [Entitic vol] 8.9 fL Low 9.0-12.7 [facility] Comment on above: Performed By: #### L [id number] ####Farm Contractor: DOMENICA JARA ([id number])[facility])[address] [place] [address] Platelets (Bld) [#/Vol] 280 10*3/uL Normal 140-440 [facility] Comment on above: Performed By: #### L [id number] ####Farm Contractor: DOMENICA JARA ([id number])[facility])[address] [place] [address] RBC (Bld) [#/Vol] 2.59 10*6/uL Low 4.40-5.90 [facility] Comment on above: Performed By: #### L [id number] ####Farm Contractor: DOMENICA JARA ([id number])[facility])[address] [place] [address] WBC (Bld) [#/Vol] 7.5 10*3/uL Normal 3.6-10.7 [facility] Comment on above: Performed By: #### L [id number] ####Farm Contractor: DOMENICA JARA ([id number])[facility])[address] [place] [address] CBC panel Auto (Bld)on 02-25 Erythrocyte distribution width (RBC) [Ratio] 19.9 % High 11.5 - 15.0 % [facility] Hematocrit (Bld) [Volume fraction] 24.1 % Low 40.0 - 52.0 % [facility] Hemoglobin (Bld) [Mass/Vol] 7.6 g/dL Low 13.0 - 18.0 g/dL [facility] Interpretation and review of laboratory results Abnormal [facility] MCH (RBC) [Entitic mass] 29.3 pg 26. 0 - 34.0 pg [facility] MCHC (RBC) [Mass/Vol] 31.5 % 30.5 - 36.0 % [facility] MCV (RBC) [Entitic vol] 93.1 fL 77.0 - 99.0 fL [facility] Platelet mean volume (Bld) [Entitic vol] 8.9 fL Low 9.0 - 12.7 fL [facility] Platelets (Bld) [#/Vol] 280 10*3/uL 140 - 440 10*3/uL [facility] RBC (Bld) [#/Vol] 2.59 10*6/uL Low 4.40 - 5.9 0 10*6/uL [facility] WBC (Bld) [#/Vol] 7.5 10*3/uL 3.6 - 10.7 10*3/uL [facility] HIGH SENSITIVITY TROPONIN, S ERIAL BASELINEon 02-25-2025 TROPONIN HS SERIAL BASELINE 84 ng/L High <=35 [facility] Comment on above: Result Comment: In i ndividuals presenting with symptoms > 2h, a baseline troponin <= 5 ng/L suggests acutecardiac injury is unlikely and further serial testing is generally not indicated. Performed By: #### L [id number] ####Farm Contractor: DOMENICA JARA ([id number])[facility] ([address] Laboratory - Coagulationon 0 02-25-2025 PT Coag (Bld) [Time] 13.7 s High 9.0 - 12.0 s [facility] No Panel Informationon 02-25 Interpretation and review of laboratory results Abnormal [facility] Nursing Noteon 02-25-2025 Nursing Note 2665- Notified Dr. Hathaway of patient complaint of SOB and worsening chest pain that he described as dull and tight. Vitals WDL. STAT EKG ordered, patient given Nitrostat, and troponin sent down. 2330- Notified SIGN BOARD ERECTOR to assess the patient. Normal [facility] PROTHROMBIN TIMEon 02-25- 5 INR Coag (PPP) [Relative time] 1.3 {INR} High 0.9-1.1 [facility] Comment on above: Result Comment: Vaughn mmended Anticoagulant Therapy: SEE BELOW----- INR of 2.0 - 3.0 : - Prophylaxis of Venous Thrombosis (high-risk surgery) - Treatment of Venous Thrombosis - Treatment of Pulmonary Embolism (Includes tissue heart valves, Acute Myocardial Infarction to prevent systemic embolism, Valvular Heart Disease, and Atrial Fibrillation)----- INR of 2.5 - 3.5 : - Mechanical Prosthetic Valves (high risk) - If oral anticoagulant therapy is used to prevent Myocardial Infarction Performed By: #### L AB325, [id number] ####Farm Contractor: DOMENICA JARA ([id number])[address] PT Coag (PPP) [Time] 13.5 s High 9.0-12.0 [facility] Comment on above: Performed By: #### Tameka AB325, [id number] ####Farm Contractor: DOMENICA JARA ([id number])[address] INR Coag (PPP) [Relative time] 1.3 {INR} High 0.9-1.1 [facility] Comment on above: Result Comment: Vaughn mmended Anticoagulant Therapy: SEE BELOW----- INR of 2.0 - 3.0 : - Prophylaxis of Venous Thrombosis (high-risk surgery) - Treatment of Venous Thrombosis - Treatment of Pulmonary Embolism (Includes tissue heart valves, Acute Myocardial Infarction to prevent systemic embolism, Valvular Heart Disease, and Atrial Fibrillation)----- INR of 2.5 - 3.5 : - Mechanical Prosthetic Valves (high risk) - If oral anticoagulant therapy is used to prevent Myocardial Infarction Performed By: #### L AB325, [id number] ####Farm Contractor: DOMENICA [id number])[facility])[address] [place] [address] PT Coag (PPP) [Time] 13.7 s High 9.0-12.0 [facility] Comment on above: Performed By: #### L AB325, [id number] ####Farm Contractor: DOMENICA JARA ([id number])[facility])[address] [place] [address] PT Coag (Bld) [Time]on 02-25 INR Coag (PPP) [Relative time] 1.3 {INR} High 0.9 - 1.1 [facility] Progress Noteon 02-25-2025 Progress Note [facility] Progress [facility] Progress Note Normal [facility] Progress Note Normal [facility] aPTT Coag (Bld) [Time]on aPTT Coag (PPP) [Time] 49.5 s High 20.0 - 30.5 s [facility] 30on 02-24-2025 30 Normal [facility] 30 Normal [facility] APTTon 02-24-2025 aPTT Coag (Bld) [Time] 54.7 s High 20.0-30.5 [facility] Comment on above: Result Comment: ARPAN Kaplan COMMENTS:NOTE: The therapeutic time for Heparin anticoagulation, based on Xa activity inhibition, is an APTT of 46-80 seconds. Performed By: #### L AB325 ####Farm Contractor: DOMENICA JARA ([id number])[facility] ([facility])[address] [place] [address] aPTT Coag (Bld) [Time] 61.0 s High 20.0-30.5 [facility] Comment on above: Result Comment: ARPAN Kaplan COMMENTS:NOTE: The therapeutic time for Heparin anticoagulation, based on Xa activity inhibition, is an APTT of 46-80 seconds. Performed By: #### L AB320, [id number] ####Farm Contractor: DOMENICA JARA ([id number])[facility] ([facility])[address] [place] [address] Bacteria identified Aer cx N om (Lower resp)Ordered By: Corey Pabon on 02-24-2025 Gram Stain Result Many Polymorphonuclear leukocytes per low power field Abnormal [facility] Gram Stain Result Few Epithelial cells per low power field Abnormal [facility] Gram Stain Result Positive Abnormal [facility] Gram Stain Result Negative Abnormal [facility] Gram Stain Result Few Yeast Abnormal [facility] Interpretation and review of laboratory results Abnormal [facility] HBV surface Ab IA Qnon 02-24 [facility] HBV surface Ag IA Qlon 02-24 Interpretation and review of laboratory results Normal [facility] HEPATITIS B SURFACE ANTIBODY on 02-24-2025 HEPATITIS B VIRUS SURFACE AB <8.0 Normal [facility] Comment on above: Result Comment: ORDE R COMMENTS:Interpretation:<8.0 Non-Reactive8.0-11.9 Equivocal>= 12.0 Ab DetectedNote: If an equivocal result is interpreted, an antibody status is unable to be determined. Collect new specimen if clinically indicated. Performed By: #### Tameka AB472, [id number] ####Farm Contractor: DOMENICA JARA ([id number])[facility] [place] [address] HEPATITIS B SURFACE ANTIGENo n 02-24-2025 HEPATITIS B VIRUS SURFACE AG Not detected Normal Not Detected [facility] Comment on above: Performed By: #### Tameka AB472, [id number] ####Farm Contractor: DOMENICA JARA ([id number])[facility])[address] [place] [address] Laboratory - Coagulationon 0 02-24-2025 PT Coag (Bld) [Time] 13.5 s High 9.0 - 12.0 s [facility] Laboratory - Drug toxicology on 02-24-2025 Vancomycin trough [Mass/Vol] 23.4 ug/mL [facility] Laboratory - Microbiology an d Antimicrobial susceptibilityon 02-24-2025 HBV surface Ab IA Qn mIU/mL [facility] HBV surface Ag IA Ql Not detected Not Detected [facility] Laboratory - Microbiology an d Antimicrobial susceptibilityOrdered By: Corey Pabon on 02-24-2025 Bacteria identified Aer cx Nom (Lower resp) Few respiratory ila present. [facility] Bacteria identified Aer cx Nom (Lower resp) Moderate Klebsiella oxytoca Abnormal [facility] No Panel Informationon 02-24 [facility] Interpretation and review of laboratory results Abnormal [facility] Nursing Noteon 02-24-2025 Nursing Note Normal [facility] PROTHROMBIN TIMEon INR Coag (PPP) [Relative time] 1.3 {INR} High 0.9-1.1 [facility] Comment on above: Result Comment: Vaughn mmended Anticoagulant Therapy: SEE BELOW----- INR of 2.0 - 3.0 : - Prophylaxis of Venous Thrombosis (high-risk surgery) - Treatment of Venous Thrombosis - Treatment of Pulmonary Embolism (Includes tissue heart valves, Acute Myocardial Infarction to prevent systemic embolism, Valvular Heart Disease, and Atrial Fibrillation)----- INR of 2.5 - 3.5 : - Mechanical Prosthetic Valves (high risk) - If oral anticoagulant therapy is used to prevent Myocardial Infarction Performed By: #### Tameka AB320, [id number] ####Farm Contractor: DOMENICA JARA ([id number])[facility] ([facility])[address] [place] [address] PT Coag (PPP) [Time] 13.5 s High 9.0-12.0 [facility] Comment on above: Performed By: #### Tameka AB320, [id number] ####Farm Contractor: DOMENICA JARA ([id number])[facility] ([facility] [place] [address] [place] PT Coag (Bld) [Time]on 02-24 INR Coag (PPP) [Relative time] 1.3 {INR} High 0.9 - 1.1 [facility] Progress Noteon 02-24-2025 Progress Note Vancomycin therapy has been discontinued by Hussain Quintana on 02/24. Thank you for the consult. Pharmacy signing off for vancomycin dosing. Marissa Iglesias, PharmD, Date: 02/24/25 Time: 4:08 PM Normal [facility] Progress Note Normal [facility] Progress Note Normal [facility] Progress Note Normal [facility] Progress Note Normal [facility] VANCOMYCIN, AUC TIMED DOSING on 02-24-2025 VANCOMYCIN, AUC 23.4 ug/mL Normal [facility] Comment on above: Result Comment: ARPAN Kaplan COMMENTS:Please draw random level at least >4 hours after the end of hemodialysis.Toxicity is seen at concentrations >80-100 ug/mLTherapeutic (Peak) range: 20-40Therapeutic (Trough) range: 5-10 Performed By: #### L AB39 ####Farm Contractor: DOMENICA JARA ([id number])[facility] ([facility])[address] [place] [address] Vancomycin trough [Mass/Vol] on 02-24-2025 [facility] aPTT Coag (Bld) [Time]on aPTT Coag (PPP) [Time] 54.7 s High 20.0 - 30.5 s [facility] Interpretation and review of laboratory results Abnormal [facility] aPTT Coag (PPP) [Time] 61 s High 20.0 - 30.5 s [facility] [id number] 02-23-2025 [id number] Normal [facility] 36on 02-23-2025 36 Called LM to call back and schedule CT and hospital follow up with any ARMIN Normal [facility] 36 Hello, can we please schedule a 6-week CT scan for this patient and a follow-up appointment after this? Thank you [facility] APTTon 02-23-2025 aPTT Coag (Bld) [Time] 49.3 s High 20.0-30.5 [facility] Comment on above: Result Comment: ARPAN Kaplan COMMENTS:NOTE: The therapeutic time for Heparin anticoagulation, based on Xa activity inhibition, is an APTT of 46-80 seconds. Performed By: #### L AB325, [id number] ####Farm Contractor: DOMENICA JARA ([id number])[facility] ([facility])[address] [place] [address] CBC (HEMOGRAM)on 02-23-2025 Erythrocyte distribution width (RBC) [Ratio] 19.7 % High 11.5-15.0 [facility] Comment on above: Performed By: #### L [id number] ####Farm Contractor: DOMENICA JARA ([id number])[facility] ([facility])[address] [place] [address] Hematocrit (Bld) [Volume fraction] 27.9 % Low 40.0-52.0 [facility] Comment on above: Performed By: #### L [id number] ####Farm Contractor: DOMENICA JARA ([id number])[facility] ([facility])[address] [place] [address] Hemoglobin (Bld) [Mass/Vol] 8.6 g/dL Low 13.0-18.0 [facility] Comment on above: Performed By: #### L [id number] ####Farm Contractor: DOMENICA JARA ([id number])[facility] ([facility])[address] [place] [address] MCH (RBC) [Entitic mass] 28.7 pg Normal 26.0-34.0 [facility] Comment on above: Performed By: #### L [id number] ####Farm Contractor: DOMENICA JARA ([id number])[facility] ([facility])[address] [place] [address] MCHC 30.8 % Normal 30.5-36.0 [facility] Comment on above: Performed By: #### L AB294 ####Farm Contractor: DOMENICA JARA ([id number])[facility] ([facility])[address] [place] [address] MCV (RBC) [Entitic vol] 93.0 fL Normal 77.0-99.0 [facility] Comment on above: Performed By: #### L [id number] ####Farm Contractor: DOMENICA JARA ([id number])[facility] ([facility])[address] [place] [address] Platelet mean volume (Bld) [Entitic vol] 8.9 fL Low 9.0-12.7 [facility] Comment on above: Performed By: #### L [id number] ####Farm Contractor: DOMENICA JARA ([id number])[facility] ([facility])[address] [place] [address] [place] Platelets (Bld) [#/Vol] 316 10*3/uL Normal 140-440 [facility] Comment on above: Performed By: #### L [id number] ####Farm Contractor: DOMENICA JARA ([id number])[facility])[address] [place] [address] RBC (Bld) [#/Vol] 3.00 10*6/uL Low 4.40-5.90 [facility] Comment on above: Performed By: #### L [id number] ####Farm Contractor: DOMENICA JARA ([id number])[facility] ([facility])[address] [place] [address] WBC (Bld) [#/Vol] 8.6 10*3/uL Normal 3.6-10.7 [facility] Comment on above: Performed By: #### L [id number] ####Farm Contractor: DOMENICA JARA ([id number])[facility])[address] [place] [address] CBC panel Auto (Bld)on 02-23 Erythrocyte distribution width (RBC) [Ratio] 19.7 % High 11.5 - 15.0 % [facility] Hematocrit (Bld) [Volume fraction] 27.9 % Low 40.0 - 52.0 % [facility] Hemoglobin (Bld) [Mass/Vol] 8.6 g/dL Low 13.0 - 18.0 g/dL [facility] Interpretation and review of laboratory results Abnormal [facility] MCH (RBC) [Entitic mass] 28.7 pg 26. 0 - 34.0 pg [facility] MCHC (RBC) [Mass/Vol] 30.8 % 30.5 - 36.0 % [facility] MCV (RBC) [Entitic vol] 93 fL 77.0 - 99.0 fL [facility] Platelet mean volume (Bld) [Entitic vol] 8.9 fL Low 9.0 - 12.7 fL [facility] Platelets (Bld) [#/Vol] 316 10*3/uL 140 - 440 10*3/uL [facility] RBC (Bld) [#/Vol] 3 10*6/uL Low 4.40 - 5.9 0 10*6/uL [facility] WBC (Bld) [#/Vol] 8.6 10*3/uL 3.6 - 10.7 10*3/uL [facility] COMPREHENSIVE METABOLIC PANE Victor M 02-23-2025 Albumin [Mass/Vol] 1.9 g/dL Low 3.5-5.0 [facility] Comment on above: Performed By: #### L AB113, LAB17, [id number] ####Farm Contractor: DOMENICA JARA ([id number])[facility] [place] [address] ALP [Catalytic activity/Vol] 136 U/L Normal 40-150 [facility] Comment on above: Performed By: #### Tameka ABAruna, LAB17, [id number] ####Farm Contractor: DOMENICA JARA ([id number])[facility] ([facility])[address] [place] [address] ALT [Catalytic activity/Vol] 10 U/L Normal <40 [facility] Comment on above: Performed By: #### Tameka ABAruna, LAB17, [id number] ####Farm Contractor: DOMENICA JARA ([id number])[facility] ([facility])[address] [place] [address] Anion gap [Moles/Vol] 11 mmol/L Normal 3-13 [facility] Comment on above: Performed By: #### Tameka ABAruna, LAB17, [id number] ####Farm Contractor: DOMENICA JARA ([id number])[facility] ([facility])[address] [place] [address] AST [Catalytic activity/Vol] 37 U/L High <34 [facility] Comment on above: Performed By: #### L AB113, LAB17, [id number] ####Farm Contractor: DOMENICA JARA ([id number])[facility])[address] [place] [address] Bilirubin [Mass/Vol] 0.6 mg/dL Normal <1.2 [facility] Comment on above: Performed By: #### L AB113, LAB17, [id number] ####Farm Contractor: DOMENICA JARA ([id number])[facility] ([facility])[address] [place] [address] [place] Calcium [Mass/Vol] 9.2 mg/dL Normal 8.4-10.2 [facility] Comment on above: Performed By: #### L AB113, LAB17, [id number] ####Farm Contractor: DOMENICA JARA ([id number])[facility] ([facility] [place] [address] [place] Chloride [Moles/Vol] 99 mmol/L Normal 98-107 [facility] Comment on above: Performed By: #### L AB113, LAB17, [id number] ####Farm Contractor: DOMENICA JARA ([phone])[facility] ([facility] [place] [address] CO2 [Moles/Vol] 25 mmol/L Normal 22-29 [facility] Comment on above: Performed By: #### L ABAruna, LAB17, [id number] ####Farm Contractor: DOMENICA JARA ([id number])[facility] ([facility] [place] [address] Creatinine [Mass/Vol] 2.78 mg/dL High 0.72-1.25 [facility] Comment on above: Performed By: #### L AB113, LAB17, [id number] ####Farm Contractor: DOMENICA JARA ([phone])[facility] ([facility] [place] [address] [place] GLOMERULAR FILTRATION RATE ML/MIN/1.73 SQ M.PREDICTED 25.4 mL/min/1.73m*2 Low >60.0 [facility] Comment on above: Result Comment: Calc ulation based on the Chronic Kidney Disease Epidemiology Collaboration (CKD-EPI) equation refit without adjustment for race Performed By: #### L AB113, LAB17, [id number] ####Farm Contractor: DOMENICA JARA ([phone])[facility] ([facility])[address] [place] [address] [place] Glucose [Mass/Vol] 110 mg/dL High 74-100 [facility] Comment on above: Performed By: #### L AB113, LAB17, [id number] ####Farm Contractor: DOMENICA JARA ([id number])[facility])[address] [place] [address] Potassium [Moles/Vol] 4.1 mmol/L Normal 3.5-5.1 [facility] Comment on above: Result Comment: [facility] potassium values may be up to 0.5 mmol/L lower than serum values. Performed By: #### Tameka AB113, LAB17, [id number] ####Farm Contractor: DOMENICA JARA ([phone])[facility])[address] [place] [address] Protein [Mass/Vol] 7.1 g/dL Normal 6.4-8.3 [facility] Comment on above: Performed By: #### Tameka ABAruna, LAB17, [id number] ####Farm Contractor: DOMENICA JARA ([id number])[facility])[address] [place] [address] Sodium [Moles/Vol] 135 mmol/L Low 136-145 [facility] Comment on above: Performed By: #### Tameka ABAruna, LAB17, [id number] ####Farm Contractor: DOMENICA JARA ([phone])[facility])[address] [place] [address] Urea nitrogen [Mass/Vol] 21 mg/dL Normal 9-23 [facility] Comment on above: Performed By: #### L ABAruna, LAB17, [id number] ####Farm Contractor: DMOENICA JARA ([id number])[facility])[address] [place] [address] Comprehensive metabolic 1998 panelOrdered By: Jarred José on 02-23-2025 Albumin [Mass/Vol] 1.9 g/dL Low 3.5 - 5.0 g/dL [facility] ALP [Catalytic activity/Vol] 136 U/L 40 - 150 U/L [facility] ALT [Catalytic activity/Vol] 10 U/L NINF - 40 U/L [facility] Anion gap [Moles/Vol] 11 mmol/L 3 - 13 mmol/L [facility] AST [Catalytic activity/Vol] 37 U/L High NINF - 34 U/L [facility] Bilirubin [Mass/Vol] 0.6 mg/dL NINF - 1.2 mg/dL [facility] Calcium [Mass/Vol] 9.2 mg/dL 8.4 - 10. 2 mg/dL [facility] Chloride [Moles/Vol] 99 mmol/L 98 - 10 7 mmol/L [facility] CO2 [Moles/Vol] 25 mmol/L 22 - 29 mmol/L [facility] Creatinine [Mass/Vol] 2.78 mg/dL High 0.72 - 1.25 mg/dL [facility] GFR/1.73 sq M.predicted (S/P/Bld) [Vol rate/Area] 25.4 mL/min Low - PINF [facility] Glucose [Mass/Vol] 110 mg/dL High 74 - 100 mg/dL [facility] Interpretation and review of laboratory results Abnormal [facility] Potassium [Moles/Vol] 4.1 mmol/L 3.5 - 5.1 mmol/L [facility] Protein [Mass/Vol] 7.1 g/dL 6.4 - 8.3 g/dL [facility] Sodium [Moles/Vol] 135 mmol/L Low 136 - 145 mmol/L [facility] Urea nitrogen [Mass/Vol] 21 mg/dL 9 - 23 mg/d L [facility] Consulton 02-23-2025 Consult Normal [facility] Laboratory - Chemistry and C hemistry - challengeon 02-23-2025 Magnesium [Mass/Vol] 2 mg/dL 1.6 - 2 .6 mg/dL [facility] Laboratory - Coagulationon 0 02-23-2025 PT Coag (Bld) [Time] 14 s High 9.0 - 12.0 s [facility] MAGNESIUMon 02-23-2025 Magnesium [Mass/Vol] 2.0 mg/dL Normal 1.6-2.6 [facility] Comment on above: Result Comment: ARPAN Kaplan COMMENTS:Higher values can be expected in females during menses. Performed By: #### L AB113, LAB17, [id number] ####Farm Contractor: DOMENICA JARA ([phone])[facility] ([facility] Magnesium [Mass/Vol]on 02-23 [facility] No Panel Informationon 02-23 Interpretation and review of laboratory results Normal [facility] Interpretation and review of laboratory results Abnormal [facility] Nursing Noteon 02-23-2025 Nursing Note Normal [facility] Nursing Note Normal [facility] PHOSPHORUSon 02-23-2025 Phosphate [Mass/Vol] 2.6 mg/dL Normal 2.3-4.7 [facility] Comment on above: Performed By: #### L AB113, LAB17, [id number] ####Farm Contractor: DOMENICA JARA ([phone])[facility])[address] [place] [address] PROTHROMBIN TIMEon INR Coag (PPP) [Relative time] 1.3 {INR} High 0.9-1.1 [facility] Comment on above: Result Comment: Vaughn mmended Anticoagulant Therapy: SEE BELOW----- INR of 2.0 - 3.0 : - Prophylaxis of Venous Thrombosis (high-risk surgery) - Treatment of Venous Thrombosis - Treatment of Pulmonary Embolism (Includes tissue heart valves, Acute Myocardial Infarction to prevent systemic embolism, Valvular Heart Disease, and Atrial Fibrillation)----- INR of 2.5 - 3.5 : - Mechanical Prosthetic Valves (high risk) - If oral anticoagulant therapy is used to prevent Myocardial Infarction Performed By: #### Tameka AB325, [id number] ####Farm Contractor: DOMENICA JARA ([phone])[facility] ([facility])[address] [place] [address] PT Coag (PPP) [Time] 14.0 s High 9.0-12.0 [facility] Comment on above: Performed By: #### L AB325, [id number] ####Farm Contractor: DOMENICA JARA ([id number])[facility])[address] [place] [address] PT Coag (Bld) [Time]on 02-23 INR Coag (PPP) [Relative time] 1.3 {INR} High 0.9 - 1.1 [facility] Phosphate [Moles/Vol]on 01-27 Phosphate [Mass/Vol] 2.6 mg/dL 2.3 - 4 .7 mg/dL [facility] Progress Noteon 02-23-2025 Progress Note Normal [facility] Progress Note Normal [facility] Progress Note Normal [facility] Progress Note Normal [facility] Progress Note Normal [facility] Progress Note Normal [facility] US Heart TransthoracicOrdere d By: Daryn Chowdary on 02-23-2025 Aortic valve Mean systole pressure gradient by US.doppler derived full Bernoulli 10 mmHg [facility] Work Phone: Aortic valve Orifice area by US 3.1 cm2 [facility] Work Phone: Aortic valve Peak systolic flow by US.doppler 1.4 m/s [facility] Work Phone: Ascending Aorta 3.5 cm [facility] Work Phone: Ascending Aorta Index 1.99 cm/m2 [facility] [employer] Work Phone: AV Area by Peak Velocity 1.3 cm2 [facility] Work Phone: AV Area by VTI 1.[address] [facility] Work Phone: AV AT 66.6 ms [facility] Work Phone: AV Peak Gradient 20 mmHg [facility] Work Phone: AV Peak Velocity 2.3 m/s [facility] Work Phone: AV Velocity Ratio 0.39 [facility] Work Phone: AV VTI 39.1 cm [facility] Work Phone: MALU/BSA Peak Velocity 0.7 cm2/m2 [facility] [employer] Work Phone: MALU/BSA VTI 0.9 cm2/m2 [facility] Work Phone: E/E' Lateral 21.43 [facility] Work Phone: E/E' Ratio (Averaged) 25.71 [facility] [employer] Work Phone: E/E' Septal 30 [facility] [employer] Work Phone: Est. RA Pressure 15 mmHg [facility] Work Phone: Fractional Shortening 2D 31 % 28 - 44 % [facility] [employer] Work Phone: Interpretation and review of laboratory results Abnormal [facility] [employer] Work Phone: IVC Diameter 2.5 cm [facility] [employer] Work Phone: IVSd 1.6 cm Abnormal 0.6 - 1.0 cm [facility] [employer] Work Phone: LA Diameter 3.1 cm [facility] [employer] Work Phone: LA Size Index 1.76 cm/m2 [facility] [employer] Work Phone: LA Volume 2C 69 mL Abnormal 18 - 58 mL [facility] [employer] Work Phone: LA Volume 4C 84 mL Abnormal 18 - 58 mL [facility] [employer] Work Phone: LA Volume A/L 85 mL [facility] [employer] Work Phone: LA Volume BP 78 mL Abnormal 18 - 58 mL [facility] [employer] Work Phone: LA Volume Index 2C 39 mL/m2 Abnormal 16 - 34 mL/m2 [facility] [employer] Work Phone: LA Volume Index 4C 48 mL/m2 Abnormal 16 - 34 mL/m2 [facility] [employer] Work Phone: LA Volume Index A/L 48 mL/m2 16 - 34 mL/m2 [facility] [employer] Work Phone: LA Volume Index BP 44 ml/m2 Abnormal 16 - 34 ml/m2 [facility] [employer] Work Phone: LV E' Lateral Velocity 7 cm/s [facility] [employer] Work Phone: LV E' Septal Velocity 5 cm/s [facility] [employer] Work Phone: LV Mass 2D 201 g 88 - 224 g [facility] [employer] Work Phone: LV Mass 2D Index 114.2 g/m2 49 - 115 g/m2 [facility] [employer] Work Phone: LV RWT Ratio 0.78 [facility] [employer] Work Phone: LVIDd 3.6 cm Abnormal 4.2 - 5.9 cm [facility] Work Phone: LVIDd Index 2.05 cm/m2 [facility] Work Phone: LVIDs 2.5 cm [facility] Work Phone: LVIDs Index 1.42 cm/m2 [facility] [employer] Work Phone: LVOT Cardiac Output 5.3 liter/minute [facility] Work Phone: LVOT Diameter 2 cm [facility] [employer] Work Phone: LVOT Mean Gradient 2 mmHg [facility] [employer] Work Phone: LVOT Peak Gradient 3 mmHg [facility] [employer] Work Phone: LVOT Peak Velocity 0.9 m/s [facility] [employer] Work Phone: LVOT Stroke Volume Index 33.4 mL/m2 [facility] [employer] Work Phone: LVOT SV 58.7 ml [facility] [employer] Work Phone: LVOT VTI 18.7 cm [facility] [employer] Work Phone: LVOT:AV VTI Index 0.48 [facility] [employer] Work Phone: LVPWd 1.4 cm Abnormal 0.6 - 1.0 cm [facility] Work Phone: MV A Velocity 0.97 m/s [facility] Work Phone: MV Area by PHT 3 cm2 [facility] Work Phone: MV Area by VTI 1.3 cm2 [facility] Work Phone: MV E Velocity 1.5 m/s [facility] Work Phone: MV E Wave Deceleration Time 250.1 ms [facility] Work Phone: MV E/A 1.55 [facility] Work Phone: MV Max Velocity 2 m/s [facility] Work Phone: MV Mean Gradient 7 mmHg [facility] Work Phone: MV Mean Velocity 1.2 m/s [facility] Work Phone: MV Peak Gradient 16 mmHg [facility] Work Phone: MV PHT 73.9 ms [facility] Work Phone: MV VTI 44.1 cm [facility] Work Phone: MV:LVOT VTI Index 2.36 [facility] Work Phone: PV Max Velocity 1.2 m/s [facility] Work Phone: PV Mean Gradient 3 mmHg [facility] Work Phone: PV Mean Velocity 0.8 m/s [facility] Work Phone: PV Peak Gradient 5 mmHg [facility] Work Phone: RA Area 4C 134.6 mL [facility] Work Phone: RA Area 4C 132.8 mL [facility] Work Phone: RV Basal Dimension 5.1 cm [facility] Work Phone: RV Free Wall Peak S' 10 cm/s [facility] Work Phone: RV Longitudinal Dimension 8.2 cm [facility] Work Phone: RV Mid Dimension 4 cm [facility] Work Phone: RVSP 57 mmHg [facility] Work Phone: TAPSE 1.4 cm Abnormal 1.7 cm [facility] Work Phone: TR Max Velocity 3.23 m/s [facility] Work Phone: TR Peak Gradient 42 mmHg [facility] Work Phone: [facility] Work Phone: US Heart Transthoracicon [facility] aPTT Coag (Bld) [Time]on aPTT Coag (PPP) [Time] 49.3 s High 20.0 - 30.5 s [facility] 30on 02-22-2025 30 Normal [facility] [id number] 02-22-2025 [id number] Normal [facility] [id number] Updated notes sent to [facility] via [facility] per [facility] request. Await review and response regarding ability to accept. TCC notified. Normal [facility] APTTon 02-22-2025 aPTT Coag (Bld) [Time] 52.1 s High 20.0-30.5 [facility] Comment on above: Result Comment: ARPAN Kaplan COMMENTS:NOTE: The therapeutic time for Heparin anticoagulation, based on Xa activity inhibition, is an APTT of 46-80 seconds. Performed By: #### L AB325 ####Farm Contractor: DOMENICA JARA ([id number])[address] aPTT Coag (Bld) [Time] 54.9 s High 20.0-30.5 [facility] Comment on above: Result Comment: ARPAN Kaplan COMMENTS:NOTE: The therapeutic time for Heparin anticoagulation, based on Xa activity inhibition, is an APTT of 46-80 seconds. Performed By: #### L AB325, [id number] ####Farm Contractor: DOMENICA JARA ([id number])[address] BLOOD CULTUREon 02-22-2025 Bacteria identified Cx Nom (Bld) Normal [facility] Comment on above: Performed By: #### L AB462 ####Farm Contractor: DOMENICA [id number])[facility])[address] [place] [address] Bacteria identified Cx Nom (Bld) Normal [facility] Comment on above: Performed By: #### L AB462 ####Farm Contractor: DOMENICA JARA ([id number])[facility])[address] [place] [address] CBC (HEMOGRAM)on 02-22-2025 Erythrocyte distribution width (RBC) [Ratio] 19.4 % High 11.5-15.0 [facility] Comment on above: Performed By: #### L AB294 ####Farm Contractor: DOMENICA JARA ([id number])[facility])[address] [place] [address] Hematocrit (Bld) [Volume fraction] 24.5 % Low 40.0-52.0 [facility] Comment on above: Performed By: #### L AB294 ####Farm Contractor: DOMENICA JARA ([id number])[facility])[address] [place] [address] Hemoglobin (Bld) [Mass/Vol] 7.8 g/dL Low 13.0-18.0 [facility] Comment on above: Performed By: #### L AB294 ####Farm Contractor: DOMENICA JARA ([id number])[facility])[address] [place] [address] MCH (RBC) [Entitic mass] 29.0 pg Normal 26.0-34.0 [facility] Comment on above: Performed By: #### L AB294 ####Farm Contractor: DOMENICA JARA ([phone])[facility])[address] [place] [address] MCHC 31.8 % Normal 30.5-36.0 [facility] Comment on above: Performed By: #### L AB294 ####Farm Contractor: DOMENICA JARA ([id number])[facility])[address] [place] [address] MCV (RBC) [Entitic vol] 91.1 fL Normal 77.0-99.0 S [facility] Comment on above: Performed By: #### L AB294 ####Farm Contractor: DOMENICA JARA ([phone])[facility] ([facility])[address] [place] [address] Platelet mean volume (Bld) [Entitic vol] 8.9 fL Low 9.0-12.7 [facility] Comment on above: Performed By: #### L AB294 ####Farm Contractor: DOMENICA JARA ([id number])[facility] ([facility])[address] [place] [address] Platelets (Bld) [#/Vol] 282 10*3/uL Normal 140-440 [facility] Comment on above: Performed By: #### L AB294 ####Farm Contractor: DOMENICA JARA ([id number])[facility] ([facility])[address] [place] [address] RBC (Bld) [#/Vol] 2.69 10*6/uL Low 4.40-5.90 [facility] Comment on above: Performed By: #### L AB294 ####Farm Contractor: DOMENICA JARA ([id number])[facility] ([facility])[address] [place] [address] WBC (Bld) [#/Vol] 9.0 10*3/uL Normal 3.6-10.7 [facility] Comment on above: Performed By: #### L AB294 ####Farm Contractor: DOMENICA JARA ([id number])[facility] ([facility])[address] [place] [address] CBC panel Auto (Bld)on 02-22 Erythrocyte distribution width (RBC) [Ratio] 19.4 % High 11.5 - 15.0 % [facility] Hematocrit (Bld) [Volume fraction] 24.5 % Low 40.0 - 52.0 % [facility] Hemoglobin (Bld) [Mass/Vol] 7.8 g/dL Low 13.0 - 18.0 g/dL [facility] Interpretation and review of laboratory results Abnormal [facility] MCH (RBC) [Entitic mass] 29 pg 26. 0 - 34.0 pg [facility] MCHC (RBC) [Mass/Vol] 31.8 % 30.5 - 36.0 % [facility] MCV (RBC) [Entitic vol] 91.1 fL 77.0 - 99.0 fL [facility] Platelet mean volume (Bld) [Entitic vol] 8.9 fL Low 9.0 - 12.7 fL [facility] Platelets (Bld) [#/Vol] 282 10*3/uL 140 - 440 10*3/uL [facility] RBC (Bld) [#/Vol] 2.69 10*6/uL Low 4.40 - 5.9 0 10*6/uL [facility] WBC (Bld) [#/Vol] 9 10*3/uL 3.6 - 10.7 10*3/uL [facility] COMPREHENSIVE METABOLIC PANE Victor M 02-22-2025 Albumin [Mass/Vol] 1.8 g/dL Low 3.5-5.0 [facility] Comment on above: Performed By: #### L AB103, LAB17, [id number] ####Farm Contractor: DOMENICA JARA ([phone])[address] ALP [Catalytic activity/Vol] 120 U/L Normal 40-150 [facility] Comment on above: Performed By: #### L AB103, LAB17, [id number] ####Farm Contractor: DOMENICA JARA ([id number])[facility] ([facility])[address] [place] [address] ALT [Catalytic activity/Vol] 9 U/L Normal <40 [facility] Comment on above: Performed By: #### L AB103, LAB17, [id number] ####Farm Contractor: DOMENICA JARA ([id number])[facility])[address] [place] [address] Anion gap [Moles/Vol] 13 mmol/L Normal 3-13 [facility] Comment on above: Performed By: #### L AB103, LAB17, [id number] ####Farm Contractor: DOMENICA JARA ([id number])[facility] ([facility])[address] [place] [address] AST [Catalytic activity/Vol] 35 U/L High <34 [facility] Comment on above: Performed By: #### L AB103, LAB17, [id number] ####Farm Contractor: DOMENICA JARA ([id number])[facility] ([facility] [place] [address] Bilirubin [Mass/Vol] 0.6 mg/dL Normal <1.2 [facility] Comment on above: Performed By: #### L AB103, LAB17, [id number] ####Farm Contractor: DOMENICA JARA ([id number])[facility] ([facility])[address] [place] [address] Calcium [Mass/Vol] 9.2 mg/dL Normal 8.4-10.2 [facility] Comment on above: Performed By: #### Tameka KWONG, LAB17, [id number] ####Farm Contractor: DOMENICA JARA ([id number])[facility] ([facility] [place] [address] [place] Chloride [Moles/Vol] 94 mmol/L Low 98-107 [facility] Comment on above: Performed By: #### Tameka AB103, LAB17, [id number] ####Farm Contractor: DOMENICA JARA ([id number])[facility] ([facility] [place] [address] [place] CO2 [Moles/Vol] 25 mmol/L Normal 22-29 [facility] Comment on above: Performed By: #### L AB103, LAB17, [id number] ####Farm Contractor: DOMENICA JARA ([id number])[facility] ([facility] [place] [address] [place] Creatinine [Mass/Vol] 3.99 mg/dL High 0.72-1.25 [facility] Comment on above: Performed By: #### L AB103, LAB17, [id number] ####Farm Contractor: DOMENICA JARA ([id number])[facility] GLOMERULAR FILTRATION RATE ML/MIN/1.73 SQ M.PREDICTED 16.5 mL/min/1.73m*2 Low >60.0 [facility] Comment on above: Result Comment: Calc ulation based on the Chronic Kidney Disease Epidemiology Collaboration (CKD-EPI) equation refit without adjustment for race Performed By: #### Tameka KWONG, LAB17, [id number] ####Farm Contractor: DOMENICA JARA ([id number])[address] Glucose [Mass/Vol] 121 mg/dL High 74-100 [facility] Comment on above: Performed By: #### Tameka KWONG, LAB17, [id number] ####Farm Contractor: DOMENICA JARA ([id number])[address] Potassium [Moles/Vol] 3.4 mmol/L Low 3.5-5.1 [facility] Comment on above: Result Comment: [facility] potassium values may be up to 0.5 mmol/L lower than serum values. Performed By: #### Tameka KWONG, LAB17, [id number] ####Farm Contractor: DOMENICA JARA ([id number])[address] Protein [Mass/Vol] 6.7 g/dL Normal 6.4-8.3 [facility] Comment on above: Performed By: #### Tameka KWONG, LAB17, [id number] ####Farm Contractor: DOMENICA JARA ([id number])[place] [address] [place] Sodium [Moles/Vol] 132 mmol/L Low 136-145 [facility] Comment on above: Performed By: #### L AB103, LAB17, [id number] ####Farm Contractor: DOMENICA JARA ([id number])[place] [address] [place] Urea nitrogen [Mass/Vol] 36 mg/dL High 9-23 [facility] Comment on above: Performed By: #### L AB103, LAB17, [id number] ####Farm Contractor: DOMENICA JARA ([id number])[facility] ([facility] Comprehensive metabolic 1998 panelOrdered By: Michelle Olmstead on 02-22-2025 Albumin [Mass/Vol] 1.8 g/dL Low 3.5 - 5.0 g/dL [facility] ALP [Catalytic activity/Vol] 120 U/L 40 - 150 U/L [facility] ALT [Catalytic activity/Vol] 9 U/L NINF - 40 U/L [facility] Anion gap [Moles/Vol] 13 mmol/L 3 - 13 mmol/L [facility] AST [Catalytic activity/Vol] 35 U/L High NINF - 34 U/L [facility] Bilirubin [Mass/Vol] 0.6 mg/dL NINF - 1.2 mg/dL [facility] [facility] Calcium [Mass/Vol] 9.2 mg/dL 8.4 - 10. 2 mg/dL [facility] Chloride [Moles/Vol] 94 mmol/L Low 98 - 10 7 mmol/L [facility] CO2 [Moles/Vol] 25 mmol/L 22 - 29 mmol/L [facility] Creatinine [Mass/Vol] 3.99 mg/dL High 0.72 - 1.25 mg/dL [facility] GFR/1.73 sq M.predicted (S/P/Bld) [Vol rate/Area] 16.5 mL/min Low - PINF [facility] Glucose [Mass/Vol] 121 mg/dL High 74 - 100 mg/dL [facility] Interpretation and review of laboratory results Abnormal [facility] Potassium [Moles/Vol] 3.4 mmol/L Low 3.5 - 5.1 mmol/L [facility] Protein [Mass/Vol] 6.7 g/dL 6.4 - 8.3 g/dL [facility] Sodium [Moles/Vol] 132 mmol/L Low 136 - 145 mmol/L [facility] Urea nitrogen [Mass/Vol] 36 mg/dL High 9 - 23 mg/d L [facility] Health Consulton 02-22-2025 Consult Normal [facility] Consult Normal [facility] Consult Normal [facility] LEGIONELLA AND STREPTOCOCCUS URINE ANTIGENon 02-22-2025 LEGIONELLA AND STREPTOCOCCUS URINE ANTIGEN Normal [facility] Comment on above: Performed By: #### L [id number] ####Farm Contractor: DOMENICA JARA ([phone])[facility] [place] [address] Laboratory - Chemistry and C hemistry - challengeon 02-22-2025 Magnesium [Mass/Vol] 2.2 mg/dL 1.6 - 2 .6 mg/dL [facility] Laboratory - Coagulationon 0 02-22-2025 PT Coag (Bld) [Time] 14.9 s High 9.0 - 12.0 s [facility] Laboratory - Drug toxicology on 02-22-2025 Vancomycin [Mass/Vol] 12.6 ug/mL [facility] MAGNESIUMon 02-22-2025 Magnesium [Mass/Vol] 2.2 mg/dL Normal 1.6-2.6 [facility] Comment on above: Result Comment: ARPAN Kaplan COMMENTS:Higher values can be expected in females during menses. Performed By: #### L AB103, LAB17, [id number] ####Farm Contractor: DOMENICA JARA ([id number])[facility] ([facility])[address] [place] [address] MRSA BY PCRon 02-22-2025 MRSA BY PCR Normal [facility] Comment on above: Performed By: #### L [id number] ####Farm Contractor: DOMENICA JARA ([phone])[facility] ([facility])[address] [place] [address] MRSA DNA EMMANUEL+probe Ql (Nose) on 02-22-2025 Interpretation and review of laboratory results Normal [facility] mecA gene Not detected Not Detected [facility] Staphylococcus aureus Not detected Not Detected [facility] Magnesium [Mass/Vol]on 02-22 [facility] No Panel Informationon 02-22 [facility] Interpretation and review of laboratory results Normal [facility] Interpretation and review of laboratory results Abnormal [facility] No Panel InformationOrdered By: Lorin Bryant on 02-22-2025 Interpretation and review of laboratory results Normal [facility] Legionella pneumophila Ag Not detected Not Detected [facility] Streptococcus pneumoniae Ag Not detected Not Detected [facility] Nursing Noteon 02-22-2025 Nursing Note Pt keeps ordering door dash items. Have explained to pt on multiple occasions that staff cannot leave floor to get items and that it is after hours and door dashers most likely will not be allowed up onto the floors. Normal [facility] Nursing Note Normal [facility] Nursing Note Normal [facility] PHOSPHORUSon 02-22-2025 Phosphate [Mass/Vol] 3.2 mg/dL Normal 2.3-4.7 [facility] Comment on above: Performed By: #### L AB103, LAB17, [id number] ####Farm Contractor: DOMENICA JARA ([phone])[address] PNEUMONIA PCR PANELon 2024 PNEUMONIA PCR PANEL Normal [facility] Comment on above: Performed By: #### L [id number] ####Farm Contractor: DOMENICA JARA ([id number])[facility])[address] [place] [address] PROTHROMBIN TIMEon INR Coag (PPP) [Relative time] 1.4 {INR} High 0.9-1.1 [facility] Comment on above: Result Comment: Vaughn mmended Anticoagulant Therapy: SEE BELOW----- INR of 2.0 - 3.0 : - Prophylaxis of Venous Thrombosis (high-risk surgery) - Treatment of Venous Thrombosis - Treatment of Pulmonary Embolism (Includes tissue heart valves, Acute Myocardial Infarction to prevent systemic embolism, Valvular Heart Disease, and Atrial Fibrillation)----- INR of 2.5 - 3.5 : - Mechanical Prosthetic Valves (high risk) - If oral anticoagulant therapy is used to prevent Myocardial Infarction Performed By: #### L AB325, [id number] ####Farm Contractor: DOMENICA JARA ([phone])[facility])[address] [place] [address] PT Coag (PPP) [Time] 14.9 s High 9.0-12.0 [facility] Comment on above: Performed By: #### L AB325, [id number] ####Farm Contractor: DOMENICA JARA ([id number])[facility] ([facility])[address] [place] [address] PT Coag (Bld) [Time]on 02-22 INR Coag (PPP) [Relative time] 1.4 {INR} High 0.9 - 1.1 [facility] Phosphate [Moles/Vol]on 01-26 Phosphate [Mass/Vol] 3.2 mg/dL 2.3 - 4 .7 mg/dL [facility] Progress Noteon 02-22-2025 Progress Note Normal [facility] Progress Note Normal [facility] Progress Note Normal [facility] Progress Note OCCUPATIONAL THERAPY [facility] Name/MRN: Jair Snyder ([id number]) Date: 02/22/2025 PT refusing to participate in therapy this AM, will continue to follow and re approach for OT eval. Ro Farnsworth OT Normal [facility] System [facility]S Progress Note Normal [facility] RESPIRATORY CULTURE AND STAI Non 02-22-2025 RESPIRATORY CULTURE AND STAIN Normal [facility] Comment on above: Performed By: #### L [id number] ####Farm Contractor: DOMENICA JARA ([id number])[facility] [place] [address] Respiratory pathogens DNA an d RNA panel EMMANUEL+non-probe (Lower resp)Ordered By: Odalys Bustamante on 02-22-2025 Acinetobacter baumannii complex Not detected Not Detected [facility] Adenovirus Not detected Not Detected [facility] Chlamydia pneumoniae Not detected Not Detected [facility] Enterobacter cloacae complex Not detected Not Detected [facility] Escherichia coli Not detected Not Detected [facility] FLUAV RNA EMMANUEL+non-probe Ql (Lower resp) Not detected Not Detected [facility] FLUBV RNA EMMANUEL+non-probe Ql (Lower resp) Not detected Not Detected [facility] Haemophilus influenzae Not detected Not Detecte d [facility] Human Metapneumovirus Not detected Not Detected [facility] Human Rhinovirus/Enterovirus Not detected Not Detected [facility] Interpretation and review of laboratory results Abnormal [facility] Klebsiella (Enterobacter) aerogenes Not detected Not Detected [facility] Klebsiella oxytoca Detected Abnormal Not Detected [facility] Klebsiella pneumoniae Not detected Not Detected [facility] Legionella pneumophila Not detected Not Detecte d [facility] mecA Not detected Not Detected [facility] Moraxella catarrhalis Not detected Not Detected [facility] Mycoplasma pneumoniae Not detected Not Detected [facility] Parainfluenza virus Not detected Not Detected [facility] Proteus spp Not detected Not Detected [facility] Pseudomonas aeruginosa Not detected Not Detecte d [facility] RSV RNA EMMANUEL+probe Ql (Resp) Not detected Not Detected [facility] S. agalactiae Org specific cx Ql (Vag fld) Not detected Not Detected [facility] SARS-CoV-2 (COVID-19) RNA EMMANUEL+non-probe Ql (Nph) Not detected Not Detected [facility] Serratia marcescens Not detected Not Detected [facility] Staphylococcus aureus Detected Abnormal Not Detected [facility] Streptococcus pneumoniae Not detected Not Detec yo [facility] Streptococcus pyogenes Not detected Not Detecte d [facility] VANCOMYCIN, RANDOMon 025 VANCOMYCIN 12.6 ug/mL Normal [facility] Comment on above: Result Comment: ORDE R COMMENTS:This level is ordered to be drawn 4 hours post- HD. ThanksToxicity is seen at concentrations >80-100 ug/mLTherapeutic (Peak) range: 20-40Therapeutic (Trough) range: 5-10 Performed By: #### L AB40 ####Farm Contractor: DOMENICA JARA ([id number])[facility] ([facility] aPTT Coag (Bld) [Time]on aPTT Coag (PPP) [Time] 52.1 s High 20.0 - 30.5 s [facility] Interpretation and review of laboratory results Abnormal [facility] aPTT Coag (PPP) [Time] 54.9 s High 20.0 - 30.5 s [facility] 30on 02-21-2025 30 Normal [facility] [id number] 02-21-2025 [id number] Has dialysis at facility, [facility]..Tiffanie campbell signed by Kaity Sepulveda RN on 02/21/2025 at 12:54 PM [facility] [id number] Normal [facility] 36on 02-21-2025 36 Normal [facility] APTTon 02-21-2025 aPTT Coag (Bld) [Time] 50.3 s High 20.0-30.5 [facility] Comment on above: Result Comment: ARPAN Kaplan COMMENTS:NOTE: The therapeutic time for Heparin anticoagulation, based on Xa activity inhibition, is an APTT of 46-80 seconds. Performed By: #### L [id number] ####Farm Contractor: DOMENICA JARA ([id number])[facility])[address] [place] [address] aPTT Coag (Bld) [Time] 32.6 s High 20.0-30.5 [facility] Comment on above: Result Comment: ARPAN Kaplan COMMENTS:NOTE: The therapeutic time for Heparin anticoagulation, based on Xa activity inhibition, is an APTT of 46-80 seconds. Performed By: #### L AB325 ####Farm Contractor: DOMENICA JARA ([id number])[facility] ([facility])[address] [place] [address] BLOOD TYPE AND SCREEN GELon 02-21-2025 ABO GROUPING O [facility] Comment on above: Performed By: #### L AB276 ####Farm Contractor: DOMENICA JARA ([id number])[facility] ([facility])[address] [place] [address] RH TYPE IN BLOOD Negative Normal [facility] Comment on above: Performed By: #### L AB276 ####Farm Contractor: DOMENICA JARA ([id number])[facility] ([facility])[address] [place] [address] Blood type and Crossmatch pa freida (Bld)on 02-21-2025 ABO group Nom (Bld) O [facility] Blood group antibody screen GEL Ql Negative [facility] D Ag Ql (RBC) Negative [facility] C-REACTIVE PROTEINon 025 CRP [Mass/Vol] 60.3 mg/L High <5.0 [facility] Comment on above: Performed By: #### L [id number], [id number], RIE780, LAB17, [id number] ####Farm Contractor: DOMENICA JARA ([id number])[facility])[address] [place] [address] CBC (HEMOGRAM)on 02-21-2025 Erythrocyte distribution width (RBC) [Ratio] 19.0 % High 11.5-15.0 [facility] Comment on above: Performed By: #### L AB294 ####Farm Contractor: DOMENICA JARA ([phone])[facility])[address] [place] [address] Hematocrit (Bld) [Volume fraction] 25.7 % Low 40.0-52.0 [facility] Comment on above: Performed By: #### L AB294 ####Farm Contractor: DOMENICA JARA ([id number])[facility] ([facility])[address] [place] [address] Hemoglobin (Bld) [Mass/Vol] 8.3 g/dL Low 13.0-18.0 [facility] Comment on above: Performed By: #### L AB294 ####Farm Contractor: DOMENICA JARA ([id number])[facility] ([facility])[address] [place] [address] MCH (RBC) [Entitic mass] 29.0 pg Normal 26.0-34.0 [facility] Comment on above: Performed By: #### L AB294 ####Farm Contractor: DOMENICA JARA ([id number])[facility])[address] [place] [address] MCHC 32.3 % Normal 30.5-36.0 [facility] Comment on above: Performed By: #### L AB294 ####Farm Contractor: DOMENICA JARA ([id number])[facility])[address] [place] [address] MCV (RBC) [Entitic vol] 89.9 fL Normal 77.0-99.0 S [facility] Comment on above: Performed By: #### L [id number] ####Farm Contractor: DOMENICA JARA ([id number])[facility] ([facility])[address] [place] [address] Platelet mean volume (Bld) [Entitic vol] 8.9 fL Low 9.0-12.7 [facility] Comment on above: Performed By: #### L AB294 ####Farm Contractor: DOMENICA JARA ([id number])[facility] ([facility])[address] [place] [address] Platelets (Bld) [#/Vol] 316 10*3/uL Normal 140-440 [facility] Comment on above: Performed By: #### L [id number] ####Farm Contractor: DOMENICA JARA ([id number])[facility] ([facility])[address] [place] [address] RBC (Bld) [#/Vol] 2.86 10*6/uL Low 4.40-5.90 [facility] Comment on above: Performed By: #### L [id number] ####Farm Contractor: DOMENICA JARA ([id number])[facility] ([facility])[address] [place] [address] WBC (Bld) [#/Vol] 7.0 10*3/uL Normal 3.6-10.7 [facility] Comment on above: Performed By: #### L [id number] ####Farm Contractor: DOMENICA JARA ([id number])[facility] ([facility])[address] [place] [address] CBC panel Auto (Bld)on 02-21 Erythrocyte distribution width (RBC) [Ratio] 19 % High 11.5 - 15.0 % [facility] Hematocrit (Bld) [Volume fraction] 25.7 % Low 40.0 - 52.0 % [facility] Hemoglobin (Bld) [Mass/Vol] 8.3 g/dL Low 13.0 - 18.0 g/dL [facility] Interpretation and review of laboratory results Abnormal [facility] MCH (RBC) [Entitic mass] 29 pg 26. 0 - 34.0 pg [facility] MCHC (RBC) [Mass/Vol] 32.3 % 30.5 - 36.0 % [facility] MCV (RBC) [Entitic vol] 89.9 fL 77.0 - 99.0 fL [facility] Platelet mean volume (Bld) [Entitic vol] 8.9 fL Low 9.0 - 12.7 fL [facility] Platelets (Bld) [#/Vol] 316 10*3/uL 140 - 440 10*3/uL [facility] RBC (Bld) [#/Vol] 2.86 10*6/uL Low 4.40 - 5.9 0 10*6/uL [facility] WBC (Bld) [#/Vol] 7 10*3/uL 3.6 - 10.7 10*3/uL [facility] COMPREHENSIVE METABOLIC PANE Victor M 02-21-2025 Albumin [Mass/Vol] 2.0 g/dL Low 3.5-5.0 [facility] Comment on above: Performed By: #### L [id number], [id number], DPR266, LAB17, SXO938 ####Farm Contractor: DOMENICA JARA ([id number])[facility])[address] [place] [address] ALP [Catalytic activity/Vol] 120 U/L Normal 40-150 [facility] Comment on above: Performed By: #### L [id number], [id number], ZPY630, LAB17, VYZ580 ####Farm Contractor: DOMENICA JARA ([id number])[facility] ([facility])[address] [place] [address] ALT [Catalytic activity/Vol] 8 U/L Normal <40 [facility] Comment on above: Performed By: #### L [id number], [id number], VQH467, LAB17, NCX068 ####Farm Contractor: DOMENICA JARA ([id number])[facility] ([facility])[address] [place] [address] Anion gap [Moles/Vol] 12 mmol/L Normal 3-13 [facility] Comment on above: Performed By: #### L [id number], VHM084, ZKK994, LAB17, AHP468 ####Farm Contractor: DOMENICA JARA ([id number])[facility])[address] [place] [address] AST [Catalytic activity/Vol] 39 U/L High <34 [facility] Comment on above: Performed By: #### L [id number], IPI741, WWH993, LAB17, ABZ749 ####Farm Contractor: DOMENICA JARA ([id number])[facility] ([facility])[address] [place] [address] Bilirubin [Mass/Vol] 0.8 mg/dL Normal <1.2 [facility] Comment on above: Performed By: #### L [id number], [id number], IPM521, LAB17, HUF091 ####Farm Contractor: DOMENICA JARA ([id number])[facility])[address] [place] [address] Calcium [Mass/Vol] 9.3 mg/dL Normal 8.4-10.2 [facility] Comment on above: Performed By: #### L [id number], [id number], JPL504, LAB17, LNP875 ####Farm Contractor: DOMENICA JARA ([id number])[facility] ([facility])[address] [place] [address] Chloride [Moles/Vol] 91 mmol/L Low 98-107 [facility] Comment on above: Performed By: #### L [id number], OIJ491, IWN149, LAB17, OBH021 ####Farm Contractor: DOMENICA JARA ([id number])[facility] ([facility])[address] [place] [address] [place] CO2 [Moles/Vol] 28 mmol/L Normal 22-29 [facility] Comment on above: Performed By: #### L [id number], WLA638, UNJ363, LAB17, JOM946 ####Farm Contractor: DOMENICA JARA ([id number])[facility] ([facility])[address] [place] [address] [place] Creatinine [Mass/Vol] 2.89 mg/dL High 0.72-1.25 [facility] Comment on above: Performed By: #### L [id number], DEE411, SCM158, LAB17, PSR757 ####Farm Contractor: DOMENICA JARA ([phone])[facility])[address] [place] [address] GLOMERULAR FILTRATION RATE ML/MIN/1.73 SQ M.PREDICTED 24.3 mL/min/1.73m*2 Low >60.0 [facility] Comment on above: Result Comment: Calc ulation based on the Chronic Kidney Disease Epidemiology Collaboration (CKD-EPI) equation refit without adjustment for race Performed By: #### L [id number], KJN753, NIA016, LAB17, XCF025 ####Farm Contractor: DOMENICA JARA ([id number])[facility])[address] [place] [address] Glucose [Mass/Vol] 74 mg/dL Normal 74-100 [facility] Comment on above: Performed By: #### L [id number], MLX279, ZAR883, LAB17, YLZ595 ####Farm Contractor: DOMENICA JARA ([id number])[address] Potassium [Moles/Vol] 3.1 mmol/L Low 3.5-5.1 [facility] Comment on above: Result Comment: [facility] potassium values may be up to 0.5 mmol/L lower than serum values. Performed By: #### L [id number], RJN150, RAJ706, LAB17, UQK579 ####Farm Contractor: DOMENICA JARA ([phone])[facility])[address] [place] [address] Protein [Mass/Vol] 6.8 g/dL Normal 6.4-8.3 [facility] Comment on above: Performed By: #### L [id number], AEJ650, XHY214, LAB17, VJG220 ####Farm Contractor: DOMENICA JARA ([phone])[facility])[address] [place] [address] [place] Sodium [Moles/Vol] 131 mmol/L Low 136-145 [facility] Comment on above: Performed By: #### L [id number], JYG057, YDI946, LAB17, QRU553 ####Farm Contractor: DOMENICA JARA ([id number])[facility] ([facility])[address] [place] [address] Urea nitrogen [Mass/Vol] 29 mg/dL High 9-23 [facility] Comment on above: Performed By: #### L [id number], SZY457, XED803, LAB17, VNC590 ####Farm Contractor: DOMENICA JARA ([id number])[facility] [place] [address] CRP [Mass/Vol]on 02-21-2025 Interpretation and review of laboratory results Abnormal [facility] Comprehensive metabolic 1998 panelon 02-21-2025 Albumin [Mass/Vol] 2 g/dL Low 3.5 - 5.0 g/dL [facility] ALP [Catalytic activity/Vol] 120 U/L 40 - 150 U/L [facility] ALT [Catalytic activity/Vol] 8 U/L NINF - 40 U/L [facility] Anion gap [Moles/Vol] 12 mmol/L 3 - 13 mmol/L [facility] AST [Catalytic activity/Vol] 39 U/L High NINF - 34 U/L [facility] Bilirubin [Mass/Vol] 0.8 mg/dL NINF - 1.2 mg/dL [facility] Calcium [Mass/Vol] 9.3 mg/dL 8.4 - 10. 2 mg/dL [facility] Chloride [Moles/Vol] 91 mmol/L Low 98 - 10 7 mmol/L [facility] CO2 [Moles/Vol] 28 mmol/L 22 - 29 mmol/L [facility] Creatinine [Mass/Vol] 2.89 mg/dL High 0.72 - 1.25 mg/dL [facility] GFR/1.73 sq M.predicted (S/P/Bld) [Vol rate/Area] 24.3 mL/min Low - PINF [facility] Glucose [Mass/Vol] 74 mg/dL 74 - 100 mg/dL [facility] Potassium [Moles/Vol] 3.1 mmol/L Low 3.5 - 5.1 mmol/L [facility] Protein [Mass/Vol] 6.8 g/dL 6.4 - 8.3 g/dL [facility] Sodium [Moles/Vol] 131 mmol/L Low 136 - 145 mmol/L [facility] Urea nitrogen [Mass/Vol] 29 mg/dL High 9 - 23 mg/d L [facility] Consulton 02-21-2025 Consult Normal [facility] Consult Normal [facility] Consult Normal [facility] Consult Normal [facility] Laboratory - Chemistry and C hemistry - challengeon 02-21-2025 CRP [Mass/Vol] 60.3 mg/L High NINF - 5.0 mg/L [facility] Procalcitonin [Mass/Vol] 0.68 ng/mL High PROSPER F - 0.07 ng/mL [facility] Magnesium [Mass/Vol] 2.2 mg/dL 1.6 - 2 .6 mg/dL [facility] MAGNESIUMon 02-21-2025 Magnesium [Mass/Vol] 2.2 mg/dL Normal 1.6-2.6 [facility] Comment on above: Result Comment: ARPAN Kaplan COMMENTS:Higher values can be expected in females during menses. Performed By: #### L [id number], XMS411, QBI109, LAB17, CPQ060 ####Farm Contractor: DOMENICA JARA ([id number])[address] Magnesium [Mass/Vol]on 02-21 Interpretation and review of laboratory results Normal [facility] No Panel Informationon 02-21 Interpretation and review of laboratory results Abnormal [facility] Nursing Noteon 02-21-2025 Nursing Note Pt ordered [employer] food. Assisted pt to sit up on bedside to eat. Normal [facility] Nursing Note Normal [facility] Nursing Note Pt declining scheduled medications until after RN calls facility to see if he is actively taking those medications per pt request. This RN spoke with RN at [facility] to verify medications that pt is taking. Normal [facility] Nursing Note Normal [facility] Nursing Note Pt removed NC from nose, stated he doesn't need it anymore. Respiratory Therapy came in to give pt, scheduled breathing treatment, pt stated he didn't need one. Normal [facility] Nursing Note Normal [facility] PHOSPHORUSon 02-21-2025 Phosphate [Mass/Vol] 2.0 mg/dL Low 2.3-4.7 [facility] Comment on above: Performed By: #### L [id number], [id number], AYK885, LAB17, IQK723 ####Farm Contractor: DOMENICA JARA ([id number])[facility])[address] [place] [address] PROCALCITONIN TESTon 025 PROCALCITONIN 0.68 ng/mL High <0.07 [facility] Comment on above: Result Comment: ARPAN Kaplan COMMENTS:PCT <0.50 = Low risk of severe sepsis and/or septic shock.PCT >2.00 = High risk of severe sepsis and/or septic shock. Performed By: #### L [id number], WGY949, KQY107, LAB17, HMA304 ####Farm Contractor: DOMENICA JARA ([id number])[facility] ([facility])[address] [place] [address] Phosphate [Moles/Vol]on 01-26 Phosphate [Mass/Vol] 2 mg/dL Low 2.3 - 4 .7 mg/dL [facility] Procalcitonin [Mass/Vol]on 0 02-21-2025 Interpretation and review of laboratory results Abnormal [facility] Progress Noteon 02-21-2025 Progress Note PHYSICAL THERAPY [facility] Name/MRN: Jair Snyder ([id number]) Date: 02/21/2025 Pt declined to work with therapy at this time, stating he wanted to eat first. Will reattempt at a later date. Sangeeta Sarabia, PT Normal [facility] Progress Note Normal [facility] Progress Note Normal [facility] RESPIRATORY PATHOGENS PANEL BY PCRon 02-21-2025 RESPIRATORY PATHOGENS PANEL BY PCR Normal [facility] Comment on above: Performed By: #### L [id number] ####Farm Contractor: DOMENICA JARA ([id number])[facility] ([facility])[address] [place] [address] Respiratory pathogens DNA an d RNA panel EMMANUEL+non-probe (Nph)on 02-21-2025 Adenovirus Not detected Not Detected [facility] B. pertussis DNA EMMANUEL+probe Ql (Unsp spec) Not detected Not Detected [facility] Bordetella parapertussis Not detected Not Detec yo [facility] Chlamydia pneumoniae Not detected Not Detected [facility] Coronavirus 229E Not detected Not Detected [facility] Coronavirus HKU1 Not detected Not Detected [facility] Coronavirus NL63 Not detected Not Detected [facility] Coronavirus OC43 Not detected Not Detected [facility] FLUAV RNA EMMANUEL+non-probe Ql (Nph) Not detected Not Detected [facility] FLUBV RNA EMMANUEL+non-probe Ql (Nph) Not detected Not Detected [facility] Human Metapneumovirus Not detected Not Detected [facility] Human Rhinovirus/Enterovirus Not detected Not Detected [facility] Interpretation and review of laboratory results Normal [facility] Mycoplasma pneumoniae Not detected Not Detected [facility] Parainfluenza 1 Not detected Not Detected [facility] Parainfluenza 2 Not detected Not Detected [facility] Parainfluenza 3 Not detected Not Detected [facility] Parainfluenza 4 Not detected Not Detected [facility] Respiratory Syncytial Virus Not detected Not Detected [facility] SARS-CoV-2 (COVID-19) RNA EMMANUEL+non-probe Ql (Nph) Not detected Not Detected [facility] aPTT Coag (Bld) [Time]on aPTT Coag (PPP) [Time] 50.3 s High 20.0 - 30.5 s [facility] Interpretation and review of laboratory results Abnormal [facility] aPTT Coag (PPP) [Time] 32.6 s High 20.0 - 30.5 s [facility] Interpretation and review of laboratory results Abnormal [facility] APTTon 02-20-2025 aPTT Coag (Bld) [Time] 26.2 s Normal 20.0-30.5 [facility] Comment on above: Result Comment: ARPAN Kaplan COMMENTS:NOTE: The therapeutic time for Heparin anticoagulation, based on Xa activity inhibition, is an APTT of 46-80 seconds. Performed By: #### L AB320, AOD600 ####Farm Contractor: FENG CONSTANTINO ([id number])APPLE DO (SBHLAB)[address] Absolute lymphocyte countOrd ered By: Kayley Melendrez on 02-20-2025 Lymphocytes Auto (Unsp spec) [#/Vol] 1.13 10*3/uL 0.83-4.51 [facility] Absolute neutrophil countOrd ered By: Kayley Melendrez on 02-20-2025 Neutrophils (Bld) [#/Vol] 4.6 10*3/uL 2.0-7.7 [facility] Anion gap in Serum or Plasma Ordered By: Kayley Melendrez on 02-20-2025 Anion gap [Moles/Vol] 12 mmol/L -15 [facility] Automated lymphocyte count a s percentage of total leukocytesOrdered By: Kayley Melendrez on 02-20-2025 Lymphocytes/100 WBC Auto (Unsp spec) 16.4 % Low 19-41 [facility] BASIC METABOLIC PANELon 01-26 Anion gap [Moles/Vol] 12 mmol/L Normal 3-13 [facility] Comment on above: Performed By: #### L AB15 ####Farm Contractor: FENG CONSTANTINO ([id number])[facility] LOUISDAPHNIE (SBHLAB)[address] Calcium [Mass/Vol] 9.6 mg/dL Normal 8.4-10.2 [facility] Comment on above: Performed By: #### L AB15 ####Farm Contractor: FENG CONSTANTINO ([id number])[facility] HOS[facility]ITALMatt DO (SBHLAB)[address] Chloride [Moles/Vol] 92 mmol/L Low 98-107 [facility] Comment on above: Performed By: #### L AB15 ####Farm Contractor: FENG CONSTANTINO ([id number])[facility] [place]APH[place] (SBHLAB)[address] CO2 [Moles/Vol] 29 mmol/L Normal 22-29 [facility] Comment on above: Performed By: #### L AB15 ####Farm Contractor: FENG CONSTANTINO ([id number])[facility]Matt [facility]IEGOSPH[facility])[address] Creatinine [Mass/Vol] 2.57 mg/dL High 0.72-1.25 [facility] Comment on above: Performed By: #### L AB15 ####Farm Contractor: FENG CONSTANTINO ([id number])[facility])[address] GLOMERULAR FILTRATION RATE ML/MIN/1.73 SQ M.PREDICTED 27.9 mL/min/1.73m*2 Low >60.0 [facility] Comment on above: Result Comment: Calc ulation based on the Chronic Kidney Disease Epidemiology Collaboration (CKD-EPI) equation refit without adjustment for race Performed By: #### L AB15 ####Farm Contractor: FENG CONSTANTINO ([id number])[facility])[address] Glucose [Mass/Vol] 80 mg/dL Normal 74-100 [facility] Comment on above: Performed By: #### L AB15 ####Farm Contractor: FENG CONSTANTINO ([id number])[facility])[address] Potassium [Moles/Vol] 3.1 mmol/L Low 3.5-5.1 [facility] Comment on above: Result Comment: [facility] potassium values may be up to 0.5 mmol/L lower than serum values. Performed By: #### L AB15 ####Farm Contractor: FENG CONSTANTINO ([id number])[facility])[address] Sodium [Moles/Vol] 133 mmol/L Low 136-145 [facility] Comment on above: Performed By: #### L AB15 ####Farm Contractor: FENG CONSTANTINO ([id number])[facility] (SBHLAB)[address] Urea nitrogen [Mass/Vol] 29 mg/dL High 9-23 [facility] Comment on above: Performed By: #### L AB15 ####Farm Contractor: FENG CONSTANTINO ([id number])[facility] (SBHLAB)[address] BUN/creatinine ratioOrdered By: Kayley Melendrez on 02-20-2025 Urea nitrogen/Creatinine [Mass ratio] 11.5 mg/mg 10-20 [facility] Basic metabolic 1998 panelon 02-20-2025 Anion gap [Moles/Vol] 12 mmol/L 3 - 13 mmol/L [facility] Calcium [Mass/Vol] 9.6 mg/dL 8.4 - 10. 2 mg/dL [facility] Chloride [Moles/Vol] 92 mmol/L Low 98 - 10 7 mmol/L [facility] CO2 [Moles/Vol] 29 mmol/L 22 - 29 mmol/L [facility] Creatinine [Mass/Vol] 2.57 mg/dL High 0.72 - 1.25 mg/dL [facility] GFR/1.73 sq M.predicted (S/P/Bld) [Vol rate/Area] 27.9 mL/min Low - PINF [facility] Glucose [Mass/Vol] 80 mg/dL 74 - 100 mg/dL [facility] Interpretation and review of laboratory results Abnormal [facility] Potassium [Moles/Vol] 3.1 mmol/L Low 3.5 - 5.1 mmol/L [facility] Sodium [Moles/Vol] 133 mmol/L Low 136 - 145 mmol/L [facility] Urea nitrogen [Mass/Vol] 29 mg/dL High 9 - 23 mg/d L [facility] Basophil percentageOrdered B y: Kayley Melendrez on 02-20-2025 Basophils/100 WBC (Bld) 1.4 % High 0-1 [facility] Bilirubin, totalOrdered By: Kayley Melendrez on 02-20-2025 Bilirubin [Mass/Vol] 0.64 mg/dL 0.00-1.30 [facility] CBC (HEMOGRAM)on 02-20-2025 Erythrocyte distribution width (RBC) [Ratio] 18.8 % High 11.5-15.0 [facility] Comment on above: Performed By: #### L AB294 ####Farm Contractor: FENG CONSTANTINO ([id number])APPLE BARBDAPHNIE (SBHLAB)[address] Hematocrit (Bld) [Volume fraction] 26.8 % Low 40.0-52.0 [facility] Comment on above: Performed By: #### L AB294 ####Farm Contractor: FENG CONSTANTINO ([id number])[facility]ITALMatt BARBDAPHNIE (SBHLAB)[address] [place] [address] Hemoglobin (Bld) [Mass/Vol] 8.7 g/dL Low 13.0-18.0 [facility] Comment on above: Performed By: #### L AB294 ####Farm Contractor: FENG CONSTANTINO ([id number])[facility]ITALMatt BARBDAPHNIE (SBHLAB)[address] [place] [address] MCH (RBC) [Entitic mass] 28.7 pg Normal 26.0-34.0 [facility] Comment on above: Performed By: #### L AB294 ####Farm Contractor: FENG CONSTANTINO ([id number])[employer] BARBDAPHNIE (SBHLAB)[address] [place] [address] MCHC 32.5 % Normal 30.5-36.0 [facility] Comment on above: Performed By: #### L AB294 ####Farm Contractor: FENG CONSTANTINO ([id number])APPLE BARBDAPHNIE (SBHLAB)[address] [place] [address] MCV (RBC) [Entitic vol] 88.4 fL Normal 77.0-99.0 S [facility] Comment on above: Performed By: #### L AB294 ####Farm Contractor: FENG CONSTANTINO ([id number])APPLE GALINDON (SBHLAB)[address] Platelet mean volume (Bld) [Entitic vol] 8.5 fL Low 9.0-12.7 [facility] Comment on above: Performed By: #### L AB294 ####Farm Contractor: FENG CONSTANTINO ([id number])APPLE GALINDON (SBHLAB)[address] Platelets (Bld) [#/Vol] 312 10*3/uL Normal 140-440 [facility] Comment on above: Performed By: #### L AB294 ####Farm Contractor: FENG CONSTANTINO ([id number])APPLE GALINDON (SBHLAB)[address] RBC (Bld) [#/Vol] 3.03 10*6/uL Low 4.40-5.90 [facility] Comment on above: Performed By: #### L AB294 ####Farm Contractor: FENG CONSTANTINO ([id number])[facility]ITALMatt GALINDON (SBHLAB)[address] WBC (Bld) [#/Vol] 9.4 10*3/uL Normal 3.6-10.7 [facility] Comment on above: Performed By: #### L AB294 ####Farm Contractor: FENG CONSTANTINO ([id number])[facility] GALINDON (SBHLAB)[address] CBC W/Diff, Automatedon 05-2 Absolute Lymph 1.13 X10 3/uL Normal 0.83-4.51 [facility] Comment on above: Order Comment: 413-2 Performed By: #### L 100.0100, L300.3900, L500.4050 #### [facility] [address] [place], [place], [id number] Absolute Neut 4.6 X10 3/uL Normal 2.0-7.7 [facility] Comment on above: Order Comment: 413-2 Performed By: #### L 100.0100, L300.3900, L500.4050 #### [facility] [address] [place], [address] Basophils/100 WBC (Bld) 1.4 % High 0-1 [facility] Comment on above: Order Comment: 413-2 Performed By: #### L 100.0100, L300.3900, L500.4050 #### [facility] [address] [place], [address] Eosinophils/100 WBC (Bld) 2.5 % Normal 0-5 [facility] Comment on above: Order Comment: 413-2 Performed By: #### L 100.0100, L300.3900, L500.4050 #### [facility] [address] [place], [address] Erythrocyte distribution width (RBC) [Ratio] 19.4 % High 11.6-14.6 [facility] Comment on above: Order Comment: 413-2 Performed By: #### L 100.0100, L300.3900, L500.4050 #### [facility] [address] [place], [address] Hematocrit (Bld) [Volume fraction] 25.9 % Low 40-54 [facility] Comment on above: Order Comment: 413-2 Performed By: #### L 100.0100, L300.3900, L500.4050 #### [facility] [address] [place], [address] Hemoglobin (Bld) [Mass/Vol] 8.5 g/dL Low 13.0-16.5 [facility] Comment on above: Order Comment: 413-2 Performed By: #### L 100.0100, L300.3900, L500.4050 #### [facility] [address] [place], [address] IG% 0.400 Normal 0.0-0.9 [facility] Comment on above: Order Comment: 413-2 Result Comment: IG% - Immature Granulocytes (promyelocytes, myelocytes and metamyelocytes) > 1% indicates that a LEFT SHIFT is Present. Performed By: #### L 100.0100, L300.3900, L500.4050 #### [facility] [address] [place], [address] Lymphocytes/100 WBC (Bld) 16.4 % Low 19-41 [facility] Comment on above: Order Comment: 413-2 Performed By: #### L 100.0100, L300.3900, [id number] #### [facility] [address] [place], [address] MCH (RBC) [Entitic mass] 30.1 pg Normal 27.0-32.0 [facility] Comment on above: Order Comment: 413-2 Performed By: #### L 100.0100, L300.3900, L500.4050 #### [facility] [address] [place], [address] MCHC (RBC) [Mass/Vol] 32.8 g/dL Normal 32-36 [facility] Comment on above: Order Comment: 413-2 Performed By: #### L 100.0100, L300.3900, L500.4050 #### [facility] [address] [place], [address] MCV (RBC) [Entitic vol] 91.8 fL Normal 80-94 [facility] Comment on above: Order Comment: 413-2 Performed By: #### L 100.0100, L300.3900, L500.4050 #### [facility] [address] [place], [address] Monocytes/100 WBC (Bld) 12.0 % High 0-10 [facility] Comment on above: Order Comment: 413-2 Performed By: #### L 100.0100, L300.3900, L500.4050 #### [facility] [address] [place], [address] Neutrophils/100 WBC (Bld) 67.3 % Normal 47-70 [facility] Comment on above: Order Comment: 413-2 Performed By: #### L 100.0100, L300.3900, L500.4050 #### [facility] [address] [place], [address] Nucleated RBC (Bld) [#/Vol] 0 10*3/uL Normal 0-5 [facility] Comment on above: Order Comment: 413-2 Performed By: #### L 100.0100, L300.3900, L500.4050 #### [facility] [address] [place], [address] Platelet mean volume (Bld) [Entitic vol] 9.0 fL Normal 6.2-12.0 [facility] Comment on above: Order Comment: 413-2 Performed By: #### L 100.0100, L300.3900, L500.4050 #### [facility] [address] [place], [address] Platelets (Bld) [#/Vol] 322 10*3/uL Normal 150-450 [facility] Comment on above: Order Comment: 413-2 Performed By: #### L 100.0100, L300.3900, L500.4050 #### [facility] [address] [place], [address] RBC (Bld) [#/Vol] 2.82 10*6/uL Low 4.6-6.2 [facility] Comment on above: Order Comment: 413-2 Performed By: #### L 100.0100, L300.3900, L500.4050 #### [facility] [address] [place], [address] RDW SD 63.5 fl High 35.1-43.9 [facility] Comment on above: Order Comment: 413-2 Performed By: #### L 100.0100, L300.3900, L500.4050 #### [facility] [address] [place], [address] WBC (Bld) [#/Vol] 6.9 10*3/uL Normal 4.4-11.0 [facility] Comment on above: Order Comment: 413-2 Performed By: #### L 100.0100, L300.3900, L500.4050 #### [facility] [address] [place], [address] CBC panel Auto (Bld)on 02-20 Erythrocyte distribution width (RBC) [Ratio] 18.8 % High 11.5 - 15.0 % [facility] Hematocrit (Bld) [Volume fraction] 26.8 % Low 40.0 - 52.0 % [facility] Hemoglobin (Bld) [Mass/Vol] 8.7 g/dL Low 13.0 - 18.0 g/dL [facility] Interpretation and review of laboratory results Abnormal [facility] MCH (RBC) [Entitic mass] 28.7 pg 26. 0 - 34.0 pg [facility] MCHC (RBC) [Mass/Vol] 32.5 % 30.5 - 36.0 % [facility] MCV (RBC) [Entitic vol] 88.4 fL 77.0 - 99.0 fL [facility] [employer] Platelet mean volume (Bld) [Entitic vol] 8.5 fL Low 9.0 - 12.7 fL [facility] [employer] Platelets (Bld) [#/Vol] 312 10*3/uL 140 - 440 10*3/uL [facility] [employer] RBC (Bld) [#/Vol] 3.03 10*6/uL Low 4.40 - 5.9 0 10*6/uL [facility] WBC (Bld) [#/Vol] 9.4 10*3/uL 3.6 - 10.7 10*3/uL [facility] CT CHEST ANGIOGRAM W AND/OR WO IV CONTRASTon 02-20-2025 CT CHEST ANGIOGRAM W AND/OR WO IV CONTRAST Normal [facility] CTA Chest vessels WO and W c ontrast Dimitrios 02-20-2025 [facility] RADIOLOGY [facility] Radiology Study observation (narrative) [facility] Chest vessels WO and W c ontrast IVOrdered By: Justo Milan on 02-20-2025 [facility] Work Phone: Carbon dioxide, total [Moles /volume] in Central venous bloodOrdered By: Kayley Melendrez on 02-20-2025 CO2 [Moles/Vol] 30.1 mmol/L 21.0-32.0 [facility] Chloride assayOrdered By: Carmen Melendrez on 02-20-2025 Chloride [Moles/Vol] 91 mmol/L Low 98-108 [facility] Comprehensive Metabolic Prof ilon 02-20-2025 Albumin [Mass/Vol] 3.0 g/dL Low 3.5-5.0 [facility] Comment on above: Order Comment: 413-2 Performed By: #### L 100.0100, L300.3900, L500.4050 #### [facility] [address] [place], [address] Albumin/Globulin [Mass ratio] 0.8 {ratio} Low 0.9-2.4 [facility] Comment on above: Order Comment: 413-2 Performed By: #### L 100.0100, L300.3900, L500.4050 #### [facility] [address] [place], [address] ALK PHOS 133 U/L High 40-129 [facility] Comment on above: Order Comment: 413-2 Performed By: #### L 100.0100, L300.3900, L500.4050 #### [facility] [address] [place], [address] ALT [Catalytic activity/Vol] 13 U/L Normal <=46 [facility] Comment on above: Order Comment: 413-2 Performed By: #### L 100.0100, L300.3900, L500.4050 #### [facility] [address] [place], [address] AST [Catalytic activity/Vol] 32 U/L Normal <=37 [facility] Comment on above: Order Comment: 413-2 Performed By: #### L 100.0100, L300.3900, L500.4050 #### [facility] [address] [place], [address] Bilirubin [Mass/Vol] 0.64 mg/dL Normal 0.00-1.30 [facility] Comment on above: Order Comment: 413-2 Performed By: #### L 100.0100, L300.3900, L500.4050 #### [facility] [address] [place], [address] BUN/CRE 11.5 RATIO Normal 10-20 [facility] Comment on above: Order Comment: 413-2 Performed By: #### L 100.0100, L300.3900, L500.4050 #### [facility] [address] [place], [address] Calcium [Mass/Vol] 9.8 mg/dL Normal 7.6-11.0 [facility] Comment on above: Order Comment: 413-2 Performed By: #### L 100.0100, L300.3900, L500.4050 #### [facility] [address] [place], [address] Chloride [Moles/Vol] 91 mmol/L Low 98-108 [facility] Comment on above: Order Comment: 413-2 Performed By: #### L 100.0100, L300.3900, L500.4050 #### [facility] [address] [place], [address] CO2 [Moles/Vol] 30.1 mmol/L Normal 21.0-32.0 [facility] Comment on above: Order Comment: 413-2 Performed By: #### L 100.0100, L300.3900, L500.4050 #### [facility] [address] [place], [address] Creatinine [Mass/Vol] 3.87 mg/dL High 0.70-1.20 [facility] Comment on above: Order Comment: 413-2 Performed By: #### L 100.0100, L300.3900, L500.4050 #### [facility] [address] [place], [address] GAP 12 Normal 5-15 [facility] Comment on above: Order Comment: 413-2 Performed By: #### L 100.0100, L300.3900, L500.4050 #### [facility] [address] [place], [place], [address] GFR/1.73 sq M.predicted among non-blacks MDRD (S/P/Bld) [Vol rate/Area] 17 mL/min/{1.73_m2} Low >60 [facility] Comment on above: Order Comment: 413-2 Result Comment: mL/m in/1.73m2 CKD-EPI Creatinine Equation (2020) Performed By: #### L 100.0100, L300.3900, L500.4050 #### [facility] [address] [place], [address] Globulin (S) [Mass/Vol] 4.0 g/dL Normal 2.2-4.2 [facility] Comment on above: Order Comment: 413-2 Performed By: #### L 100.0100, L300.3900, L500.4050 #### [facility] [address] [place], [address] Glucose [Mass/Vol] 78 mg/dL Normal 70-99 [facility] Comment on above: Order Comment: 413-2 Performed By: #### L 100.0100, L300.3900, L500.4050 #### [facility] [address] [place], [address] Potassium [Moles/Vol] 3.0 mmol/L Low 3.3-5.1 [facility] Comment on above: Order Comment: 413-2 Performed By: #### L 100.0100, L300.3900, L500.4050 #### [facility] [address] [place], [address] Sodium [Moles/Vol] 134 mmol/L Normal 133-145 [facility] Comment on above: Order Comment: 413-2 Performed By: #### L 100.0100, L300.3900, L500.4050 #### [facility] [address] [place], [address] T PROT 6.9 g/dL Normal 5.9-8.4 [facility] Comment on above: Order Comment: 413-2 Performed By: #### L 100.0100, L300.3900, L500.4050 #### [facility] [address] [place], [address] Urea nitrogen [Mass/Vol] 44 mg/dL High 4-19 [facility] Comment on above: Order Comment: 413-2 Performed By: #### L 100.0100, L300.3900, L500.4050 #### [facility] [address] [place], [address] ED Nursing Noteon 02-20-2025 ED Nursing Note Called report to 3W nurse who will be taking over pt care. Normal [facility] ED Nursing Note Attempted to reposition pt and have him sit up but pt states he feels fine and does not want to sit updespite coughing up blood. Normal [facility] ED Nursing Note Pt placed on 2L NC due to O2 saturation of 90%. Currently 97 on 2L Normal [facility] ED Nursing Note Suction turned on at this time for pt due to increased coughing up of blood Normal [facility] ED Nursing Note Normal [facility] ED Nursing Note Normal [facility] ED Provider Noteon ED Provider Note Normal [facility] Eosinophil percentageOrdered By: Kayley Melendrez on 02-20-2025 Eosinophils/100 WBC (Bld) 2.5 % 0-5 [facility] Erythrocyte distribution wid th ratioOrdered By: Kayley Melendrez on 02-20-2025 Erythrocyte distribution width (RBC) [Ratio] 19.4 % High 11.6-14.6 [facility] Erythrocyte distribution wid th standard deviationOrdered By: Kayley Melendrez on 02-20-2025 Erythrocyte distribution width (RBC) [Ratio] 63.5 fl High 35.1-43.9 [facility] Glomerular filtration rate ( GFR) estimation/1.73 sq m using serum, plasma, or whole bOrdered By: Kayley Melendrez on 02-20-2025 GFR/1.73 sq M.predicted among non-blacks MDRD (S/P/Bld) [Vol rate/Area] 17 mL/min/{1.73_m2} Low >60 [facility] Comment on above: mL/min/1.73m2 CKD-EP I Creatinine Equation (2020) Hematocrit Auto (Bld) [Volum e fraction]Ordered By: Kayley Melendrez on 02-20-2025 Hematocrit (Bld) [Volume fraction] 25.9 % Low 40-54 [facility] Hemoglobin measurementOrdere d By: Kalyey Melendrez on 02-20-2025 Hemoglobin (Bld) [Mass/Vol] 8.5 g/dL Low 13.0-16.5 [facility] Immature granulocytes/100 WB C Auto (Bld)Ordered By: Kayley Melendrez on 02-20-2025 Immature granulocytes/100 WBC (Bld) 0.400 % 0.0-0.9 [facility] Comment on above: IG% - Immature Granu locytes (promyelocytes, myelocytes and metamyelocytes) > 1% indicates that a LEFT SHIFT is Present. International normalized rat io (INR) calculationOrdered By: Kayley Melendrez on 02-20-2025 INR Coag (Bld) [Relative time] 1.4 {INR} [facility] - Chemistry and C hemistry - challengeOrdered By: Kayley Melendrez on 02-20-2025 AST [Catalytic activity/Vol] 32 U/L <38 [facility] - Coagulationon 0 02-20-2025 PT Coag (Bld) [Time] 14.7 s High 9.0 - 12.0 s [facility] MCV (mean corpuscular volume ) determinationOrdered By: Kayley Melendrez on 02-20-2025 MCV (RBC) [Entitic vol] 91.8 fL 80-94 [facility] Mean corpuscular hemoglobin (MCH) determinationOrdered By: Kayley Melendrez on 02-20-2025 MCH (RBC) [Entitic mass] 30.1 pg 27.0-32.0 [facility] Mean corpuscular hemoglobin concentration (MCHC) determinationOrdered By: Kayley Melendrez on 02-20-2025 MCHC (RBC) [Mass/Vol] 32.8 g/dL 32-36 [facility] Mean platelet volume determi nationOrdered By: Kayley Melendrez on 02-20-2025 Platelet mean volume (Bld) [Entitic vol] 9.0 fL 6.2-12.0 [facility] Monocyte percentageOrdered B y: Kayley Melendrez on 02-20-2025 Monocytes/100 WBC (Bld) 12.0 % High 0-10 [facility] Neutrophil percentageOrdered By: Kayley Melendrez on 02-20-2025 Neutrophils/100 WBC (Bld) 67.3 % 47-70 [facility] No Panel Informationon 02-20 [facility] Nucleated red blood cell per centageOrdered By: Kayley Melendrez on 02-20-2025 Nucleated RBC/100 WBC (Bld) [Ratio] 0 % 0-5 [facility] Nursing Noteon 02-20-2025 Nursing Note Pt arrived on floor via [employer] Normal [facility] PROTHROMBIN TIMEon INR Coag (PPP) [Relative time] 1.4 {INR} High 0.9-1.1 [facility] Comment on above: Result Comment: Vaughn mmended Anticoagulant Therapy: SEE BELOW----- INR of 2.0 - 3.0 : - Prophylaxis of Venous Thrombosis (high-risk surgery) - Treatment of Venous Thrombosis - Treatment of Pulmonary Embolism (Includes tissue heart valves, Acute Myocardial Infarction to prevent systemic embolism, Valvular Heart Disease, and Atrial Fibrillation)----- INR of 2.5 - 3.5 : - Mechanical Prosthetic Valves (high risk) - If oral anticoagulant therapy is used to prevent Myocardial Infarction Performed By: #### L AB320, [id number] ####Farm Contractor: [employer] ([phone])[facility])[address] [place] [address] PT Coag (PPP) [Time] 14.7 s High 9.0-12.0 [facility] Comment on above: Performed By: #### L AB320, [id number] ####Farm Contractor: [employer] ([phone])[facility] [place] [address] PT Coag (Bld) [Time]on 02-20 INR Coag (PPP) [Relative time] 1.4 {INR} High 0.9 - 1.1 [facility] Interpretation and review of laboratory results Abnormal [facility] Platelet countOrdered By: Carmen Melendrez on 02-20-2025 Platelets (Bld) [#/Vol] 322 10*3/uL 150-450 [facility] Potassium measurement (mass/ volume)Ordered By: Kayley Melendrez on 02-20-2025 Potassium (Unsp spec) [Mass/Vol] 3.0 mmol/L Low 3.3-5.1 [facility] Prothrombin Time w/INRon INR Coag (PPP) [Relative time] 1.4 {INR} Normal [facility] Comment on above: Order Comment: 413-2 Performed By: #### L 100.0100, L300.3900, L500.4050 #### [facility] [address] [place], [address] PT Coag (PPP) [Time] 17.5 s High 11.7-14.9 [facility] Comment on above: Order Comment: 413-2 Performed By: #### L 100.0100, L300.3900, L500.4050 #### [facility] [address] [place], [address] Prothrombin timeOrdered By: Kayley Melendrez on 02-20-2025 PT Coag (PPP) [Time] 17.5 s High 11.7-14.9 [facility] RBC Auto (Bld) [#/Vol]Ordere d By: Kayley Melendrez on 02-20-2025 RBC (Bld) [#/Vol] 2.82 10*6/uL Low 4.6-6.2 [facility] Serum creatinine measurement (mass/volume)Ordered By: Kayley Melendrez on 02-20-2025 Creatinine [Mass/Vol] 3.87 mg/dL High 0.70-1.20 [facility] Serum globulin measurementOr dered By: Kayley Melendrez on 02-20-2025 Globulin (S) [Mass/Vol] 4.0 g/dL 2.2-4.2 [facility] Serum glucose measurement (m ass/volume)Ordered By: Kayley Melendrez on 02-20-2025 Glucose [Mass/Vol] 78 mg/dL 70-99 [facility] Serum or plasma alanine mayorga otransferase (ALT) measurementOrdered By: aKyley Melendrez on 02-20-2025 ALT [Catalytic activity/Vol] 13 U/L <47 [facility] Serum or plasma albumin audrey urement (mass/volume)Ordered By: Kayley Melendrez on 02-20-2025 Albumin [Mass/Vol] 3.0 g/dL Low 3.5-5.0 [facility] Serum or plasma albumin/glob ulin mass ratioOrdered By: Kayley Melendrez on 02-20-2025 Albumin/Globulin [Mass ratio] 0.8 {ratio} Low 0.9-2.4 [facility] Serum or plasma alkaline jacob sphatase measurementOrdered By: Kayley Melendrez on 02-20-2025 ALP [Catalytic activity/Vol] 133 U/L High 40-129 [facility] Serum or plasma calcium audrey urement (mass/volume)Ordered By: Kayley Melendrez on 02-20-2025 Calcium [Mass/Vol] 9.8 mg/dL 7.6-11.0 [facility] Serum or plasma urea nitroge n measurement (mass/volume)Ordered By: Kayley Melendrez on 02-20-2025 Urea nitrogen [Mass/Vol] 44 mg/dL High 4-19 [facility] Sodium levelOrdered By: Omega Melendrez on 02-20-2025 Sodium [Moles/Vol] 134 mmol/L 133-145 [facility] Total proteinOrdered By: Lexis Melendrez on 02-20-2025 Protein [Mass/Vol] 6.9 g/dL 5.9-8.4 [facility] White blood cell (WBC) count Ordered By: Kayley Melendrez on 02-20-2025 WBC (Bld) [#/Vol] 6.9 10*3/uL 4.4-11.0 [facility] aPTT Coag (Bld) [Time]on aPTT Coag (PPP) [Time] 26.2 s 20.0 - 30.5 s [facility] Interpretation and review of laboratory results Normal [facility] International normalized rat io (INR) calculationOrdered By: Kayley Melendrez on 02-15-2025 INR Coag (Bld) [Relative time] 1.3 {INR} [facility] Prothrombin Time w/INRon INR Coag (PPP) [Relative time] 1.3 {INR} Normal [facility] Comment on above: Order Comment: 413-2 Performed By: #### L 100.0100, L300.3900, L500.4050 #### [facility] [address] [place], [address] PT Coag (PPP) [Time] 16.6 s High 11.7-14.9 [facility] Comment on above: Order Comment: 413-2 Performed By: #### L 100.0100, L300.3900, L500.4050 #### [facility] [address] [place], [address] Prothrombin timeOrdered By: Kayley Melendrez on 02-15-2025 PT Coag (PPP) [Time] 16.6 s High 11.7-14.9 [facility] Nursing Noteon 02-14-2025 Nursing Note Normal [facility] Progress Noteon 02-14-2025 Progress Note Patient completed 6 week course of Amp-Sulbactam on 02/13/25 for sacral osteomyelitis. Tunneled line has since been removed. Continue to monitor off antibiotics at this time. Continue wound care. Normal [facility] Progress Note Normal [facility] International normalized rat io (INR) measurement by fingerstickOrdered By: Kayley Melendrez on 02-13-2025 INR Coag (BldC) [Relative time] 1.7 [facility] Comment on above: Critical Value > 4.0 Protime w/INR Fingerstickon 02-13-2025 INR Coag (PPP) [Relative time] 1.7 {INR} Normal [facility] Comment on above: Result Comment: Crit ical Value > 4.0 Performed By: #### L 9200.0000 #### [facility] [address] [place], [place], [id number] Protime Coagsen 19.1 SEC High 11.7-14.9 [facility] Comment on above: Performed By: #### L 9200.0000 #### [facility] [address] [place], [address] Whole blood prothrombin time Ordered By: Kayley Melendrez on 02-13-2025 PT Coag (Bld) [Time] 19.1 s High 11.7-14.9 [facility] Absolute lymphocyte countOrd ered By: Kayley Melendrez on 02-12-2025 Lymphocytes Auto (Unsp spec) [#/Vol] 1.29 10*3/uL 0.83-4.51 [facility] Absolute neutrophil countOrd ered By: Kayley Melendrez on 02-12-2025 Neutrophils (Bld) [#/Vol] 4.7 10*3/uL 2.0-7.7 [facility] Anion gap in Serum or Plasma Ordered By: Kayley Melendrez on 02-12-2025 Anion gap [Moles/Vol] 12 mmol/L 5- [facility] Automated lymphocyte count a s percentage of total leukocytesOrdered By: Kayley Melendrez on 02-12-2025 Lymphocytes/100 WBC Auto (Unsp spec) 17.7 % Low - [facility] BUN/creatinine ratioOrdered By: Kayley Melendrez on 02-12-2025 Urea nitrogen/Creatinine [Mass ratio] 10.3 mg/mg 10- [facility] Basophil percentageOrdered B y: Kayley Melendrez on 02-12-2025 Basophils/100 WBC (Bld) 1.1 % High 0-1 [facility] Bilirubin, totalOrdered By: Kayley Melendrez on 02-12-2025 Bilirubin [Mass/Vol] 0.69 mg/dL 0.00-1.30 [facility] CBC W/Diff, Automatedon 01-25 Absolute Lymph 1.29 X10 3/uL Normal 0.83-4.51 [facility] Comment on above: Performed By: #### L 300.3900, L100.0100, L500.4050 #### [facility] [address] [place], [place], [id number] Absolute Neut 4.7 X10 3/uL Normal 2.0-7.7 [facility] Comment on above: Performed By: #### L 300.3900, L100.0100, L500.4050 #### [facility] [address] [place], [address] Basophils/100 WBC (Bld) 1.1 % High 0-1 [facility] Comment on above: Performed By: #### L 300.3900, L100.0100, L500.4050 #### [facility] [address] [place], [address] Eosinophils/100 WBC (Bld) 4.7 % Normal 0-5 [facility] Comment on above: Performed By: #### L 300.3900, L100.0100, L500.4050 #### [facility] [address] [place], [address] Erythrocyte distribution width (RBC) [Ratio] 18.3 % High 11.6-14.6 [facility] Comment on above: Performed By: #### L 300.3900, L100.0100, L500.4050 #### [facility] [address] [place], [address] Hematocrit (Bld) [Volume fraction] 24.6 % Low 40-54 [facility] Comment on above: Performed By: #### L 300.3900, L100.0100, L500.4050 #### [facility] [address] [place], [address] Hemoglobin (Bld) [Mass/Vol] 8.0 g/dL Low 13.0-16.5 [facility] Comment on above: Performed By: #### L 300.3900, L100.0100, L500.4050 #### [facility] [address] [place], [address] IG% 0.500 Normal 0.0-0.9 [facility] Comment on above: Result Comment: IG% - Immature Granulocytes (promyelocytes, myelocytes and metamyelocytes) > 1% indicates that a LEFT SHIFT is Present. Performed By: #### L 300.3900, L100.0100, L500.4050 #### [facility] [address] [place], [address] Lymphocytes/100 WBC (Bld) 17.7 % Low 19-41 [facility] Comment on above: Performed By: #### L 300.3900, L100.0100, L500.4050 #### [facility] [address] [place], [address] MCH (RBC) [Entitic mass] 29.3 pg Normal 27.0-32.0 [facility] Comment on above: Performed By: #### L 300.3900, L100.0100, L500.4050 #### [facility] [address] [place], [address] MCHC (RBC) [Mass/Vol] 32.5 g/dL Normal 32-36 [facility] Comment on above: Performed By: #### L 300.3900, L100.0100, L500.4050 #### [facility] [address] [place], [address] MCV (RBC) [Entitic vol] 90.1 fL Normal 80-94 [facility] Comment on above: Performed By: #### L 300.3900, L100.0100, L500.4050 #### [facility] [address] [place], [address] Monocytes/100 WBC (Bld) 11.9 % High 0-10 [facility] Comment on above: Performed By: #### L 300.3900, L100.0100, L500.4050 #### [facility] [address] [place], [address] Neutrophils/100 WBC (Bld) 64.1 % Normal 47-70 [facility] Comment on above: Performed By: #### L 300.3900, L100.0100, L500.4050 #### [facility] [address] [place], [address] Nucleated RBC (Bld) [#/Vol] 0 10*3/uL Normal 0-5 [facility] Comment on above: Performed By: #### L 300.3900, L100.0100, L500.4050 #### [facility] [address] [place], [address] Platelet mean volume (Bld) [Entitic vol] 9.2 fL Normal 6.2-12.0 [facility] Comment on above: Performed By: #### L 300.3900, L100.0100, L500.4050 #### [facility] [address] [place], [address] Platelets (Bld) [#/Vol] 294 10*3/uL Normal 150-450 [facility] Comment on above: Performed By: #### L 300.3900, L100.0100, L500.4050 #### [facility] [address] [place], [address] RBC (Bld) [#/Vol] 2.73 10*6/uL Low 4.6-6.2 [facility] Comment on above: Performed By: #### L 300.3900, L100.0100, L500.4050 #### [facility] [address] [place], [address] RDW SD 59.4 fl High 35.1-43.9 [facility] Comment on above: Performed By: #### L 300.3900, L100.0100, L500.4050 #### [facility] [address] [place], [address] WBC (Bld) [#/Vol] 7.3 10*3/uL Normal 4.4-11.0 [facility] Comment on above: Performed By: #### L 300.3900, L100.0100, L500.4050 #### [facility] [address] [place], [address] Carbon dioxide, total [Moles /volume] in Central venous bloodOrdered By: Kayley Melendrez on 02-12-2025 CO2 [Moles/Vol] 28.4 mmol/L 21.0-32.0 [facility] Chloride assayOrdered By: Carmen Melendrez on 02-12-2025 Chloride [Moles/Vol] 91 mmol/L Low 98-108 [facility] Comprehensive Metabolic Prof ilon 02-12-2025 Albumin [Mass/Vol] 2.9 g/dL Low 3.5-5.0 [facility] Comment on above: Performed By: #### L 300.3900, L100.0100, L500.4050 #### [facility] [address] [place], [address] Albumin/Globulin [Mass ratio] 0.7 {ratio} Low 0.9-2.4 [facility] Comment on above: Performed By: #### L 300.3900, L100.0100, L500.4050 #### [facility] [address] [place], [address] ALK PHOS 177 U/L High 40-129 [facility] Comment on above: Performed By: #### L 300.3900, L100.0100, L500.4050 #### [facility] [address] [place], [address] ALT [Catalytic activity/Vol] 9 U/L Normal <=46 [facility] Comment on above: Performed By: #### L 300.3900, L100.0100, L500.4050 #### [facility] [address] [place], [address] AST [Catalytic activity/Vol] 34 U/L Normal <=37 [facility] Comment on above: Performed By: #### L 300.3900, L100.0100, L500.4050 #### [facility] [address] [place], [address] Bilirubin [Mass/Vol] 0.69 mg/dL Normal 0.00-1.30 [facility] Comment on above: Performed By: #### L 300.3900, L100.0100, L500.4050 #### [facility] [address] [place], [address] BUN/CRE 10.3 RATIO Normal 10-20 [facility] Comment on above: Performed By: #### L 300.3900, L100.0100, L500.4050 #### [facility] [address] [place], [address] Calcium [Mass/Vol] 9.9 mg/dL Normal 7.6-11.0 [facility] Comment on above: Performed By: #### L 300.3900, L100.0100, L500.4050 #### [facility] [address] [place], [address] Chloride [Moles/Vol] 91 mmol/L Low 98-108 [facility] Comment on above: Performed By: #### L 300.3900, L100.0100, L500.4050 #### [facility] [address] [place], [address] CO2 [Moles/Vol] 28.4 mmol/L Normal 21.0-32.0 [facility] Comment on above: Performed By: #### L 300.3900, L100.0100, L500.4050 #### [facility] [address] [place], [address] Creatinine [Mass/Vol] 4.17 mg/dL High 0.70-1.20 [facility] Comment on above: Performed By: #### L 300.3900, L100.0100, L500.4050 #### [facility] [address] [place], [address] GAP 12 Normal 5-15 [facility] Comment on above: Performed By: #### L 300.3900, L100.0100, L500.4050 #### [facility] [address] [place], [address] GFR/1.73 sq M.predicted among non-blacks MDRD (S/P/Bld) [Vol rate/Area] 16 mL/min/{1.73_m2} Low >60 [facility] Comment on above: Result Comment: mL/m in/1.73m2 CKD-EPI Creatinine Equation (2020) Performed By: #### L 300.3900, L100.0100, L500.4050 #### [facility] [address] [place], [address] Globulin (S) [Mass/Vol] 4.2 g/dL Normal 2.2-4.2 [facility] Comment on above: Performed By: #### L 300.3900, L100.0100, L500.4050 #### [facility] [address] [place], [address] Glucose [Mass/Vol] 77 mg/dL Normal 70-99 [facility] Comment on above: Performed By: #### L 300.3900, L100.0100, L500.4050 #### [facility] [address] [place], [address] Potassium [Moles/Vol] 3.2 mmol/L Low 3.3-5.1 [facility] Comment on above: Performed By: #### L 300.3900, L100.0100, L500.4050 #### [facility] [address] [place], [address] Sodium [Moles/Vol] 131 mmol/L Low 133-145 [facility] Comment on above: Performed By: #### L 300.3900, L100.0100, L500.4050 #### [facility] [address] [place], [address] T PROT 7.1 g/dL Normal 5.9-8.4 [facility] Comment on above: Performed By: #### L 300.3900, L100.0100, L500.4050 #### [facility] [address] [place], [address] Urea nitrogen [Mass/Vol] 43 mg/dL High - [facility] Comment on above: Performed By: #### L 300.3900, L100.0100, L500.4050 #### [facility] [address] [place], [address] Eosinophil percentageOrdered By: Kayley Melendrez on 02-12-2025 Eosinophils/100 WBC (Bld) 4.7 % 0-5 [facility] Erythrocyte distribution wid th ratioOrdered By: Kayley Melendrez on 02-12-2025 Erythrocyte distribution width (RBC) [Ratio] 18.3 % High 11.6-14.6 [facility] Erythrocyte distribution wid th standard deviationOrdered By: Kayley Melendrez on 02-12-2025 Erythrocyte distribution width (RBC) [Ratio] 59.4 fl High 35.1-43.9 [facility] Glomerular filtration rate ( GFR) estimation/1.73 sq m using serum, plasma, or whole bOrdered By: Kayley Melendrez on 02-12-2025 GFR/1.73 sq M.predicted among non-blacks MDRD (S/P/Bld) [Vol rate/Area] 16 mL/min/{1.73_m2} Low >60 [facility] Comment on above: mL/min/1.73m2 CKD-EP I Creatinine Equation (2020) Hematocrit Auto (Bld) [Volum e fraction]Ordered By: Kayley Melendrez on 02-12-2025 Hematocrit (Bld) [Volume fraction] 24.6 % Low 40-54 [facility] Hemoglobin measurementOrdere d By: Kayley Melendrez on 02-12-2025 Hemoglobin (Bld) [Mass/Vol] 8.0 g/dL Low 13.0-16.5 [facility] Immature granulocytes/100 WB C Auto (Bld)Ordered By: Kayley Melendrez on 02-12-2025 Immature granulocytes/100 WBC (Bld) 0.500 % 0.0-0.9 [facility] Comment on above: IG% - Immature Granu locytes (promyelocytes, myelocytes and metamyelocytes) > 1% indicates that a LEFT SHIFT is Present. International normalized rat io (INR) calculationOrdered By: Kayley Melendrez on 02-12-2025 INR Coag (Bld) [Relative time] 1.5 {INR} [facility] Laboratory - Chemistry and C hemistry - challengeOrdered By: Kayley Melendrez on 02-12-2025 AST [Catalytic activity/Vol] 34 U/L <38 [facility] MCV (mean corpuscular volume ) determinationOrdered By: Kayley Melendrez on 02-12-2025 MCV (RBC) [Entitic vol] 90.1 fL 80-94 [facility] Mean corpuscular hemoglobin (MCH) determinationOrdered By: Kayley Melendrez on 02-12-2025 MCH (RBC) [Entitic mass] 29.3 pg 27.0-32.0 [facility] Mean corpuscular hemoglobin concentration (MCHC) determinationOrdered By: Kayley Melendrez on 02-12-2025 MCHC (RBC) [Mass/Vol] 32.5 g/dL 32-36 [facility] Mean platelet volume determi nationOrdered By: Kayley Melendrez on 02-12-2025 Platelet mean volume (Bld) [Entitic vol] 9.2 fL 6.2-12.0 [facility] Monocyte percentageOrdered B y: Kayley Melendrez on 05-19-2025 Monocytes/100 WBC (Bld) 11.9 % High 0-10 [facility] Neutrophil percentageOrdered By: Kayley Melendrez on 02-12-2025 Neutrophils/100 WBC (Bld) 64.1 % 47-70 [facility] Nucleated red blood cell per centageOrdered By: Kayley Melendrez on 02-12-2025 Nucleated RBC/100 WBC (Bld) [Ratio] 0 % 0-5 [facility] Platelet countOrdered By: Carmen Melendrez on 02-12-2025 Platelets (Bld) [#/Vol] 294 10*3/uL 150-450 [facility] Potassium measurement (mass/ volume)Ordered By: Kayley Melendrez on 02-12-2025 Potassium (Unsp spec) [Mass/Vol] 3.2 mmol/L Low 3.3-5.1 [facility] Prothrombin Time w/INRon INR Coag (PPP) [Relative time] 1.5 {INR} Normal [facility] Comment on above: Performed By: #### L 300.3900, L100.0100, L500.4050 #### [facility] Laboratory [address] [place], [place], [id number] PT Coag (PPP) [Time] 17.9 s High 11.7-14.9 [facility] Comment on above: Performed By: #### L 300.3900, L100.0100, L500.4050 #### [facility] [address] [place], [address] Prothrombin timeOrdered By: Kayley Melendrez on 02-12-2025 PT Coag (PPP) [Time] 17.9 s High 11.7-14.9 [facility] RBC Auto (Bld) [#/Vol]Ordere d By: Kayley Melendrez on 02-12-2025 RBC (Bld) [#/Vol] 2.73 10*6/uL Low 4.6-6.2 [facility] Serum creatinine measurement (mass/volume)Ordered By: Kayley Melendrez on 02-12-2025 Creatinine [Mass/Vol] 4.17 mg/dL High 0.70-1.20 [facility] Serum globulin measurementOr dered By: Kayley Melendrez on 02-12-2025 Globulin (S) [Mass/Vol] 4.2 g/dL 2.2-4.2 [facility] Serum glucose measurement (m ass/volume)Ordered By: Kayley Melendrez on 02-12-2025 Glucose [Mass/Vol] 77 mg/dL 70-99 [facility] Serum or plasma alanine mayorga otransferase (ALT) measurementOrdered By: Kayley Melendrez on 02-12-2025 ALT [Catalytic activity/Vol] 9 U/L <47 [facility] Serum or plasma albumin audrey urement (mass/volume)Ordered By: Kayley Melendrez on 02-12-2025 Albumin [Mass/Vol] 2.9 g/dL Low 3.5-5.0 [facility] Serum or plasma albumin/glob ulin mass ratioOrdered By: Kayley Melendrez on 02-12-2025 Albumin/Globulin [Mass ratio] 0.7 {ratio} Low 0.9-2.4 [facility] Serum or plasma alkaline jacob sphatase measurementOrdered By: Kayley Melendrez on 02-12-2025 ALP [Catalytic activity/Vol] 177 U/L High 40-129 [facility] Serum or plasma calcium audrey urement (mass/volume)Ordered By: Kayley Melendrez on 02-12-2025 Calcium [Mass/Vol] 9.9 mg/dL 7.6-11.0 [facility] Serum or plasma urea nitroge n measurement (mass/volume)Ordered By: Kayley Melendrez on 02-12-2025 Urea nitrogen [Mass/Vol] 43 mg/dL High 4-19 [facility] Sodium levelOrdered By: Omega Melendrez on 02-12-2025 Sodium [Moles/Vol] 131 mmol/L Low 133-145 [facility] Total proteinOrdered By: Lexis Melendrez on 02-12-2025 Protein [Mass/Vol] 7.1 g/dL 5.9-8.4 [facility] White blood cell (WBC) count Ordered By: Kayley Melendrez on 02-12-2025 WBC (Bld) [#/Vol] 7.3 10*3/uL 4.4-11.0 [facility] 36on 02-09-2025 36 [facility] International normalized rat io (INR) measurement by fingerstickOrdered By: Kayley Melendrez on 02-08-2025 INR Coag (BldC) [Relative time] 2.3 [facility] Comment on above: Critical Value > 4.0 Protime w/INR Fingerstickon 02-08-2025 INR Coag (PPP) [Relative time] 2.3 {INR} Normal [facility] Comment on above: Result Comment: Crit ical Value > 4.0 Performed By: #### L 9200.0000 #### [facility] Laboratory [address] [place], [place], [id number] Protime Coagsen 24.9 SEC High 11.7-14.9 [facility] Comment on above: Performed By: #### L 9200.0000 #### [facility] [address] [place], [place], [id number] Whole blood prothrombin time Ordered By: Kayley Melendrez on 02-08-2025 PT Coag (Bld) [Time] 24.9 s High 11.7-14.9 [facility] International normalized rat io (INR) calculationOrdered By: Jayesh Stubbs on 02-07-2025 INR Coag (Bld) [Relative time] 1.8 {INR} [facility] Prothrombin Time w/INRon INR Coag (PPP) [Relative time] 1.8 {INR} Normal [facility] Comment on above: Order Comment: 413-2 Performed By: #### L 300.3900 #### [facility] Laboratory [address] [place], [address] PT Coag (PPP) [Time] 21.1 s High 11.7-14.9 [facility] Comment on above: Order Comment: 413-2 Performed By: #### L 477.5946 #### [facility] [place], [address] Prothrombin timeOrdered By: Jayesh Stubbs on 02-07-2025 PT Coag (PPP) [Time] 21.1 s High 11.7-14.9 [facility] Absolute lymphocyte countOrd ered By: Kayley Melendrez on 02-05-2025 Lymphocytes Auto (Unsp spec) [#/Vol] 1.77 10*3/uL 0.83-4.51 [facility] Absolute neutrophil countOrd ered By: Kayley Melendrez on 02-05-2025 Neutrophils (Bld) [#/Vol] 4.6 10*3/uL 2.0-7.7 [facility] Anion gap in Serum or Plasma Ordered By: Kayley Melendrez on 02-05-2025 Anion gap [Moles/Vol] 18 mmol/L High 5-15 [facility] Automated lymphocyte count a s percentage of total leukocytesOrdered By: Kayley Melendrez on 02-05-2025 Lymphocytes/100 WBC Auto (Unsp spec) 22.0 % 19-41 [facility] BUN/creatinine ratioOrdered By: Kayley Melendrez on 02-05-2025 Urea nitrogen/Creatinine [Mass ratio] 4.1 mg/mg Low 10-20 [facility] Basophil percentageOrdered B y: Kayley Melendrez on 02-05-2025 Basophils/100 WBC (Bld) 1.0 % 0-1 [facility] Bilirubin, totalOrdered By: Kayley Melendrez on 02-05-2025 Bilirubin [Mass/Vol] 0.81 mg/dL 0.00-1.30 [facility] CBC W/Diff, Automatedon 01-25 Absolute Lymph 1.77 X10 3/uL Normal 0.83-4.51 [facility] Comment on above: Order Comment: 413-2 Performed By: #### L 100.0100, L300.3900, L500.4050 #### [facility] [address] [place], [address] Absolute Neut 4.6 X10 3/uL Normal 2.0-7.7 [facility] Comment on above: Order Comment: 413-2 Performed By: #### L 100.0100, L300.3900, L500.4050 #### [facility] [address] [place], [address] Basophils/100 WBC (Bld) 1.0 % Normal 0-1 [facility] Comment on above: Order Comment: 413-2 Performed By: #### L 100.0100, L300.3900, L500.4050 #### [facility] [address] [place], [address] Eosinophils/100 WBC (Bld) 4.1 % Normal 0-5 [facility] Comment on above: Order Comment: 413-2 Performed By: #### L 100.0100, L300.3900, L500.4050 #### [facility] [address] [place], [address] Erythrocyte distribution width (RBC) [Ratio] 18.8 % High 11.6-14.6 [facility] Comment on above: Order Comment: 413-2 Performed By: #### L 100.0100, L300.3900, L500.4050 #### [facility] [address] [place], [address] Hematocrit (Bld) [Volume fraction] 28.1 % Low 40-54 [facility] Comment on above: Order Comment: 413-2 Performed By: #### L 100.0100, L300.3900, L500.4050 #### [facility] [address] [place], [address] Hemoglobin (Bld) [Mass/Vol] 8.8 g/dL Low 13.0-16.5 [facility] Comment on above: Order Comment: 413-2 Performed By: #### L 100.0100, L300.3900, L500.4050 #### [facility] [address] [place], [address] IG% 0.600 Normal 0.0-0.9 [facility] Comment on above: Order Comment: 413-2 Result Comment: IG% - Immature Granulocytes (promyelocytes, myelocytes and metamyelocytes) > 1% indicates that a LEFT SHIFT is Present. Performed By: #### L 100.0100, L300.3900, L500.4050 #### [facility] [address] [place], [address] Lymphocytes/100 WBC (Bld) 22.0 % Normal 19-41 [facility] Comment on above: Order Comment: 413-2 Performed By: #### L 100.0100, L300.3900, L500.4050 #### [facility] [address] [place], [address] MCH (RBC) [Entitic mass] 29.0 pg Normal 27.0-32.0 [facility] Comment on above: Order Comment: 413-2 Performed By: #### L 100.0100, L300.3900, L500.4050 #### [facility] [address] [place], [address] MCHC (RBC) [Mass/Vol] 31.3 g/dL Low 32-36 [facility] Comment on above: Order Comment: 413-2 Performed By: #### L 100.0100, L300.3900, L500.4050 #### [facility] [address] [place], [address] MCV (RBC) [Entitic vol] 92.7 fL Normal 80-94 [facility] Comment on above: Order Comment: 413-2 Performed By: #### L 100.0100, L300.3900, L500.4050 #### [facility] [address] [place], [address] Monocytes/100 WBC (Bld) 15.6 % High 0-10 [facility] Comment on above: Order Comment: 413-2 Performed By: #### L 100.0100, L300.3900, L500.4050 #### [facility] [address] [place], [address] Neutrophils/100 WBC (Bld) 56.7 % Normal 47-70 [facility] Comment on above: Order Comment: 413-2 Performed By: #### L 100.0100, L300.3900, L500.4050 #### [facility] [address] [place], [address] Nucleated RBC (Bld) [#/Vol] 0 10*3/uL Normal 0-5 [facility] Comment on above: Order Comment: 413-2 Performed By: #### L 100.0100, L300.3900, L500.4050 #### [facility] [address] [place], [address] Platelet mean volume (Bld) [Entitic vol] 9.2 fL Normal 6.2-12.0 [facility] Comment on above: Order Comment: 413-2 Performed By: #### L 100.0100, L300.3900, L500.4050 #### [facility] [address] [place], [address] Platelets (Bld) [#/Vol] 358 10*3/uL Normal 150-450 [facility] Comment on above: Order Comment: 413-2 Performed By: #### L 100.0100, L300.3900, L500.4050 #### [facility] [address] [place], [address] RBC (Bld) [#/Vol] 3.03 10*6/uL Low 4.6-6.2 [facility] Comment on above: Order Comment: 413-2 Performed By: #### L 100.0100, L300.3900, L500.4050 #### [facility] [address] [place], [address] RDW SD 63.1 fl High 35.1-43.9 [facility] Comment on above: Order Comment: 413-2 Performed By: #### L 100.0100, L300.3900, L500.4050 #### [facility] [address] [place], [address] WBC (Bld) [#/Vol] 8.1 10*3/uL Normal 4.4-11.0 [facility] Comment on above: Order Comment: 413-2 Performed By: #### L 100.0100, L300.3900, L500.4050 #### [facility] [address] [place], [address] Carbon dioxide, total [Moles /volume] in Central venous bloodOrdered By: Kayley Melendrez on 02-05-2025 CO2 [Moles/Vol] 25.9 mmol/L 21.0-32.0 [facility] Chloride assayOrdered By: Carmen Melendrez on 02-05-2025 Chloride [Moles/Vol] 93 mmol/L Low 98-108 [facility] Comprehensive Metabolic Prof ilon 02-05-2025 Albumin [Mass/Vol] 3.1 g/dL Low 3.5-5.0 [facility] Comment on above: Order Comment: 413-2 Performed By: #### L 100.0100, L300.3900, L500.4050 #### [facility] [address] [place], [address] Albumin/Globulin [Mass ratio] 0.7 {ratio} Low 0.9-2.4 [facility] Comment on above: Order Comment: 413-2 Performed By: #### L 100.0100, L300.3900, L500.4050 #### [facility] [address] [place], [address] ALK PHOS 260 U/L High 40-129 [facility] Comment on above: Order Comment: 413-2 Performed By: #### L 100.0100, L300.3900, L500.4050 #### [facility] [address] [place], [address] ALT [Catalytic activity/Vol] 11 U/L Normal <=46 [facility] Comment on above: Order Comment: 413-2 Performed By: #### L 100.0100, L300.3900, L500.4050 #### [facility] [address] [place], [address] AST [Catalytic activity/Vol] 42 U/L High <=37 [facility] Comment on above: Order Comment: 413-2 Performed By: #### L 100.0100, L300.3900, L500.4050 #### [facility] [address] [place], [address] Bilirubin [Mass/Vol] 0.81 mg/dL Normal 0.00-1.30 [facility] Comment on above: Order Comment: 413-2 Performed By: #### L 100.0100, L300.3900, L500.4050 #### [facility] [address] [place], [address] BUN/CRE 4.1 RATIO Low 10-20 [facility] Comment on above: Order Comment: 413-2 Performed By: #### L 100.0100, L300.3900, L500.4050 #### [facility] [address] [place], [address] Calcium [Mass/Vol] 10.0 mg/dL Normal 7.6-11.0 [facility] Comment on above: Order Comment: 413-2 Performed By: #### L 100.0100, L300.3900, L500.4050 #### [facility] [address] [place], [address] Chloride [Moles/Vol] 93 mmol/L Low 98-108 [facility] Comment on above: Order Comment: 413-2 Performed By: #### L 100.0100, L300.3900, L500.4050 #### [facility] [address] [place], [address] CO2 [Moles/Vol] 25.9 mmol/L Normal 21.0-32.0 [facility] Comment on above: Order Comment: 413-2 Performed By: #### L 100.0100, L300.3900, L500.4050 #### [facility] [address] [place], [address] Creatinine [Mass/Vol] 5.27 mg/dL High 0.70-1.20 [facility] Comment on above: Order Comment: 413-2 Performed By: #### L 100.0100, L300.3900, L500.4050 #### [facility] [address] [place], [address] GAP 18 High 5-15 [facility] Comment on above: Order Comment: 413-2 Performed By: #### L 100.0100, L300.3900, L500.4050 #### [facility] [address] [place], [address] GFR/1.73 sq M.predicted among non-blacks MDRD (S/P/Bld) [Vol rate/Area] 12 mL/min/{1.73_m2} Low >60 [facility] Comment on above: Order Comment: 413-2 Result Comment: mL/m in/1.73m2 CKD-EPI Creatinine Equation (2020) Performed By: #### L 100.0100, L300.3900, L500.4050 #### [facility] [address] [place], [address] Globulin (S) [Mass/Vol] 4.3 g/dL High 2.2-4.2 [facility] Comment on above: Order Comment: 413-2 Performed By: #### L 100.0100, L300.3900, L500.4050 #### [facility] [address] [place], [address] Glucose [Mass/Vol] 65 mg/dL Low 70-99 [facility] Comment on above: Order Comment: 413-2 Performed By: #### L 100.0100, L300.3900, L500.4050 #### [facility] [address] [place], [address] Potassium [Moles/Vol] 4.5 mmol/L Normal 3.3-5.1 [facility] Comment on above: Order Comment: 413-2 Performed By: #### L 100.0100, L300.3900, L500.4050 #### [facility] [address] [place], [address] Sodium [Moles/Vol] 136 mmol/L Normal 133-145 [facility] Comment on above: Order Comment: 413-2 Performed By: #### L 100.0100, L300.3900, L500.4050 #### [facility] [address] [place], [address] T PROT 7.4 g/dL Normal 5.9-8.4 [facility] Comment on above: Order Comment: 413-2 Performed By: #### L 100.0100, L300.3900, L500.4050 #### [facility] [address] [place], [address] Urea nitrogen [Mass/Vol] 22 mg/dL High 4-19 [place] [facility] Comment on above: Order Comment: 413-2 Performed By: #### L 100.0100, L300.3900, L500.4050 #### [facility] [address] [place], [address] Eosinophil percentageOrdered By: [facility] Melendrez on 02-05-2025 Eosinophils/100 WBC (Bld) 4.1 % 0-5 [facility] Erythrocyte distribution wid th ratioOrdered By: [facility] Melend[facility] on 02-05-2025 Erythrocyte distribution width (RBC) [Ratio] 18.8 % High 11.6-14.6 [facility] Erythrocyte distribution wid th standard deviationOrdered By: [facility] Countyjacob aneudybrookvillesamson on 02-05-2025 Erythrocyte distribution width (RBC) [Ratio] 63.1 fl High 35.1-43.9 [facility] Glomerular filtration rate ( GFR) estimation/1.73 sq m using serum, plasma, or whole bOrdered By: [facility] Melendrez on 02-05-2025 GFR/1.73 sq M.predicted among non-blacks MDRD (S/P/Bld) [Vol rate/Area] 12 mL/min/{1.73_m2} Low >60 [facility] Comment on above: mL/min/1.73m2 CKD-EP I Creatinine Equation (2020) Hematocrit Auto (Bld) [Volum e fraction]Ordered By: [facility] Melendrez on 02-05-2025 Hematocrit (Bld) [Volume fraction] 28.1 % Low 40-54 [facility] Hemoglobin measurementOrdere d By: Kayley Melendrez on 02-05-2025 Hemoglobin (Bld) [Mass/Vol] 8.8 g/dL Low 13.0-16.5 [facility] Immature granulocytes/100 WB C Auto (Bld)Ordered By: Kayley Melendrez on 02-05-2025 Immature granulocytes/100 WBC (Bld) 0.600 % 0.0-0.9 [facility] Comment on above: IG% - Immature Granu locytes (promyelocytes, myelocytes and metamyelocytes) > 1% indicates that a LEFT SHIFT is Present. Laboratory - Chemistry and C hemistry - challengeOrdered By: Kayley Melendrez on 02-05-2025 AST [Catalytic activity/Vol] 42 U/L High <38 [facility] MCV (mean corpuscular volume ) determinationOrdered By: Kayley Melendrez on 02-05-2025 MCV (RBC) [Entitic vol] 92.7 fL 80-94 [facility] Mean corpuscular hemoglobin (MCH) determinationOrdered By: Kayley Melendrez on 02-05-2025 MCH (RBC) [Entitic mass] 29.0 pg 27.0-32.0 [facility] Mean corpuscular hemoglobin concentration (MCHC) determinationOrdered By: Kayley Melendrez on 02-05-2025 MCHC (RBC) [Mass/Vol] 31.3 g/dL Low 32-36 [facility] Mean platelet volume determi nationOrdered By: Kayley Melendrez on 02-05-2025 Platelet mean volume (Bld) [Entitic vol] 9.2 fL 6.2-12.0 [facility] Monocyte percentageOrdered B y: Kayley Melendrez on 02-05-2025 Monocytes/100 WBC (Bld) 15.6 % High 0-10 [facility] Neutrophil percentageOrdered By: Kayley Melendrez on 02-05-2025 Neutrophils/100 WBC (Bld) 56.7 % 47-70 [facility] Nucleated red blood cell per centageOrdered By: Kayley Melendrez on 02-05-2025 Nucleated RBC/100 WBC (Bld) [Ratio] 0 % 0-5 [facility] Platelet countOrdered By: Carmen Melendrez on 02-05-2025 Platelets (Bld) [#/Vol] 358 10*3/uL 150-450 [facility] Potassium measurement (mass/ volume)Ordered By: Kayley Melendrez on 02-05-2025 Potassium (Unsp spec) [Mass/Vol] 4.5 mmol/L 3.3-5.1 [facility] RBC Auto (Bld) [#/Vol]Ordere d By: Kayley Melendrez on 02-05-2025 RBC (Bld) [#/Vol] 3.03 10*6/uL Low 4.6-6.2 [facility] Serum creatinine measurement (mass/volume)Ordered By: Kayley Melendrez on 02-05-2025 Creatinine [Mass/Vol] 5.27 mg/dL High 0.70-1.20 [facility] Serum globulin measurementOr dered By: Kayley Melendrez on 02-05-2025 Globulin (S) [Mass/Vol] 4.3 g/dL High 2.2-4.2 [facility] Serum glucose measurement (m ass/volume)Ordered By: Kayley Melendrez on 02-05-2025 Glucose [Mass/Vol] 65 mg/dL Low 70-99 [facility] Serum or plasma alanine mayorga otransferase (ALT) measurementOrdered By: Kayley Melendrez on 02-05-2025 ALT [Catalytic activity/Vol] 11 U/L <47 [facility] Serum or plasma albumin audrey urement (mass/volume)Ordered By: Kayley Melendrez on 02-05-2025 Albumin [Mass/Vol] 3.1 g/dL Low 3.5-5.0 [facility] Serum or plasma albumin/glob ulin mass ratioOrdered By: Kayley Melendrez on 02-05-2025 Albumin/Globulin [Mass ratio] 0.7 {ratio} Low 0.9-2.4 [facility] Serum or plasma alkaline jacob sphatase measurementOrdered By: Kayley Melendrez on 02-05-2025 ALP [Catalytic activity/Vol] 260 U/L High 40-129 [facility] Serum or plasma calcium audrey urement (mass/volume)Ordered By: Kayley Melendrez on 02-05-2025 Calcium [Mass/Vol] 10.0 mg/dL 7.6-11.0 [facility] Serum or plasma urea nitroge n measurement (mass/volume)Ordered By: Kayley Melendrez on 02-05-2025 Urea nitrogen [Mass/Vol] 22 mg/dL High 4-19 [facility] Sodium levelOrdered By: Omega Mendozastephen on 02-05-2025 Sodium [Moles/Vol] 136 mmol/L 133-145 [facility] Total proteinOrdered By: Lexis Mendozastephen on 02-05-2025 Protein [Mass/Vol] 7.4 g/dL 5.9-8.4 [facility] White blood cell (WBC) count Ordered By: Kayley Marquessamson on 02-05-2025 WBC (Bld) [#/Vol] 8.1 10*3/uL 4.4-11.0 [facility] 36on 02-02-2025 36 Normal [facility] 36 Patient discharged to [facility] [phone], spoke to nurse Mazariegos to verify orders, follow up appointment and tunneled line removal. [facility] Progress Noteon 02-02-2025 Progress Note Normal [facility] Progress Note Pt discharged to [facility] on 02/01/25. Updated tracker with hospital doses. Warfarin dosing instructions: 0.5 mg per day. New interacting meds: N/a Next SAILAJA appt: post SNF Normal [facility] Progress Note Patient is still at [facility] [facility] ([phone]). I left a message for ELIA Anderson, regarding discharge plans. [facility] [id number] [id number] created in HENS per TCC request. Facility notified via [employer]. [facility] [phone] [facility] CBC (HEMOGRAM)on 02-01-2025 Erythrocyte distribution width (RBC) [Ratio] 18.8 % High 11.5-15.0 [facility] Comment on above: Performed By: #### L [id number] ####Farm Contractor: DOMENICA JARA ([id number])[facility] ([address] Hematocrit (Bld) [Volume fraction] 28.3 % Low 40.0-52.0 [facility] Comment on above: Performed By: #### L [id number] ####Farm Contractor: DOMENICA JARA ([id number])[facility])[address] [place] [address] Hemoglobin (Bld) [Mass/Vol] 8.9 g/dL Low 13.0-18.0 [facility] Comment on above: Performed By: #### L [id number] ####Farm Contractor: DOMENICA JARA ([id number])[facility] ([facility])[address] [place] [address] MCH (RBC) [Entitic mass] 28.2 pg Normal 26.0-34.0 [facility] Comment on above: Performed By: #### L AB294 ####Farm Contractor: DOMENICA JARA ([id number])[facility])[address] [place] [address] MCHC 31.4 % Normal 30.5-36.0 [facility] Comment on above: Performed By: #### L [id number] ####Farm Contractor: DOMENICA JARA ([id number])[facility] ([facility])[address] [place] [address] MCV (RBC) [Entitic vol] 89.6 fL Normal 77.0-99.0 [facility] Comment on above: Performed By: #### L [id number] ####Farm Contractor: DOMENICA JARA ([id number])[facility])[address] [place] [address] Platelet mean volume (Bld) [Entitic vol] 9.0 fL Normal 9.0-12.7 [facility] Comment on above: Performed By: #### L [id number] ####Farm Contractor: DOMENICA JARA ([id number])[facility])[address] [place] [address] Platelets (Bld) [#/Vol] 282 10*3/uL Normal 140-440 [facility] Comment on above: Performed By: #### L [id number] ####Farm Contractor: DOMENICA JRAA ([phone])[facility] ([facility])[address] [place] [address] RBC (Bld) [#/Vol] 3.16 10*6/uL Low 4.40-5.90 [facility] Comment on above: Performed By: #### L [id number] ####Farm Contractor: DOMENICA JARA ([id number])[facility] ([facility])[address] [place] [address] WBC (Bld) [#/Vol] 7.9 10*3/uL Normal 3.6-10.7 [facility] Comment on above: Performed By: #### L [id number] ####Farm Contractor: DOMENICA JARA ([id number])[facility] ([facility])[address] [place] [address] CBC panel Auto (Bld)on 02-01 Erythrocyte distribution width (RBC) [Ratio] 18.8 % High 11.5 - 15.0 % [facility] Hematocrit (Bld) [Volume fraction] 28.3 % Low 40.0 - 52.0 % [facility] Hemoglobin (Bld) [Mass/Vol] 8.9 g/dL Low 13.0 - 18.0 g/dL [facility] Interpretation and review of laboratory results Abnormal [facility] MCH (RBC) [Entitic mass] 28.2 pg 26. 0 - 34.0 pg [facility] MCHC (RBC) [Mass/Vol] 31.4 % 30.5 - 36.0 % [facility] MCV (RBC) [Entitic vol] 89.6 fL 77.0 - 99.0 fL [facility] Platelet mean volume (Bld) [Entitic vol] 9 fL 9.0 - 12.7 fL [facility] Platelets (Bld) [#/Vol] 282 10*3/uL 140 - 440 10*3/uL [facility] RBC (Bld) [#/Vol] 3.16 10*6/uL Low 4.40 - 5.9 0 10*6/uL [facility] WBC (Bld) [#/Vol] 7.9 10*3/uL 3.6 - 10.7 10*3/uL [facility] COMPREHENSIVE METABOLIC PANE Victor M 02-01-2025 Albumin [Mass/Vol] 2.1 g/dL Low 3.5-5.0 [facility] Comment on above: Performed By: #### Tameka GIMENEZ, LAB17, [id number] ####Farm Contractor: DOMENICA JARA ([id number])[facility] ([facility])[address] [place] [address] ALP [Catalytic activity/Vol] 226 U/L High 40-150 [facility] Comment on above: Performed By: #### Tameka GIMENEZ, LAB17, [id number] ####Farm Contractor: DOMENICA JARA ([id number])[facility] ([facility])[address] [place] [address] ALT [Catalytic activity/Vol] 10 U/L Normal <40 [facility] Comment on above: Performed By: #### Tameka GIMENEZ, LAB17, [id number] ####Farm Contractor: DOMENICA JARA ([id number])[facility] ([facility])[address] [place] [address] Anion gap [Moles/Vol] 11 mmol/L Normal 3-13 [facility] Comment on above: Performed By: #### Tameka GIMENEZ, LAB17, [id number] ####Farm Contractor: DOMENICA JARA ([id number])[facility] ([facility])[address] [place] [address] AST [Catalytic activity/Vol] 32 U/L Normal <34 [facility] Comment on above: Performed By: #### Tameka GIMENEZ, LAB17, [id number] ####Farm Contractor: DOMENICA JARA ([id number])[facility] ([facility])[address] [place] [address] Bilirubin [Mass/Vol] 0.9 mg/dL Normal <1.2 [facility] Comment on above: Performed By: #### Tameka GIMENEZ, LAB17, [id number] ####Farm Contractor: DOMENICA JARA ([id number])[facility] ([facility])[address] [place] [address] Calcium [Mass/Vol] 9.7 mg/dL Normal 8.4-10.2 [facility] Comment on above: Performed By: #### L AB113, LAB17, [id number] ####Farm Contractor: DOMENICA JARA ([id number])[facility])[address] [place] [address] Chloride [Moles/Vol] 99 mmol/L Normal 98-107 [facility] Comment on above: Performed By: #### L AB113, LAB17, [id number] ####Farm Contractor: DOMENICA JARA ([id number])[facility] ([facility])[address] [place] [address] CO2 [Moles/Vol] 26 mmol/L Normal 22-29 [facility] Comment on above: Performed By: #### Tameka AB113, LAB17, [id number] ####Farm Contractor: DOMENICA JARA ([id number])[facility])[address] [place] [address] Creatinine [Mass/Vol] 2.39 mg/dL High 0.72-1.25 [facility] Comment on above: Performed By: #### L AB113, LAB17, [id number] ####Farm Contractor: DOMENICA JARA ([id number])[facility] ([facility])[address] [place] [address] GLOMERULAR FILTRATION RATE ML/MIN/1.73 SQ M.PREDICTED 30.5 mL/min/1.73m*2 Low >60.0 [facility] Comment on above: Result Comment: Calc ulation based on the Chronic Kidney Disease Epidemiology Collaboration (CKD-EPI) equation refit without adjustment for race Performed By: #### L AB113, LAB17, [id number] ####Farm Contractor: DOMENICA JARA ([phone])[facility] ([facility])[address] [place] [address] [place] Glucose [Mass/Vol] 87 mg/dL Normal 74-100 [facility] Comment on above: Performed By: #### L AB113, LAB17, [id number] ####Farm Contractor: DOMENICA JARA ([id number])[facility])[address] [place] [address] [place] Potassium [Moles/Vol] 3.7 mmol/L Normal 3.5-5.1 [facility] Comment on above: Result Comment: [facility] potassium values may be up to 0.5 mmol/L lower than serum values. Performed By: #### L AB113, LAB17, [id number] ####Farm Contractor: DOMENICA JARA ([id number])[facility])[address] [place] [address] Protein [Mass/Vol] 7.4 g/dL Normal 6.4-8.3 [facility] Comment on above: Performed By: #### L AB113, LAB17, [id number] ####Farm Contractor: DOMENICA JARA ([id number])[facility])[address] [place] [address] Sodium [Moles/Vol] 136 mmol/L Normal 136-145 [facility] Comment on above: Performed By: #### L AB113, LAB17, [id number] ####Farm Contractor: DOMENICA JARA ([id number])[facility] ([facility])[address] [place] [address] Urea nitrogen [Mass/Vol] 7 mg/dL Low 9-23 [facility] Comment on above: Performed By: #### L AB113, LAB17, [id number] ####Farm Contractor: DOMENICA JARA ([id number])[address] Comprehensive metabolic 1998 panelon 02-01-2025 Albumin [Mass/Vol] 2.1 g/dL Low 3.5 - 5.0 g/dL [facility] ALP [Catalytic activity/Vol] 226 U/L High 40 - 150 U/L [facility] ALT [Catalytic activity/Vol] 10 U/L NINF - 40 U/L [facility] Anion gap [Moles/Vol] 11 mmol/L 3 - 13 mmol/L [facility] AST [Catalytic activity/Vol] 32 U/L NINF - 34 U/L [facility] Bilirubin [Mass/Vol] 0.9 mg/dL NINF - 1.2 mg/dL [facility] Calcium [Mass/Vol] 9.7 mg/dL 8.4 - 10. 2 mg/dL [facility] Chloride [Moles/Vol] 99 mmol/L 98 - 10 7 mmol/L [facility] CO2 [Moles/Vol] 26 mmol/L 22 - 29 mmol/L [facility] Creatinine [Mass/Vol] 2.39 mg/dL High 0.72 - 1.25 mg/dL [facility] GFR/1.73 sq M.predicted (S/P/Bld) [Vol rate/Area] 30.5 mL/min Low - PINF [facility] Glucose [Mass/Vol] 87 mg/dL 74 - 100 mg/dL [facility] Interpretation and review of laboratory results Abnormal [facility] Potassium [Moles/Vol] 3.7 mmol/L 3.5 - 5.1 mmol/L [facility] Protein [Mass/Vol] 7.4 g/dL 6.4 - 8.3 g/dL [facility] Sodium [Moles/Vol] 136 mmol/L 136 - 145 mmol/L [facility] Urea nitrogen [Mass/Vol] 7 mg/dL Low 9 - 23 mg/d L [facility] HEMOGLOBIN AND HEMATOCRIT, B LOODon 02-01-2025 Hematocrit (Bld) [Volume fraction] 28.8 % Low 40.0-52.0 [facility] Comment on above: Performed By: #### L AB753 ####Farm Contractor: DOMENICA JARA ([id number])[address] Hemoglobin (Bld) [Mass/Vol] 8.9 g/dL Low 13.0-18.0 [facility] Comment on above: Performed By: #### L AB753 ####Farm Contractor: DOMENICA JARA ([id number])[address] Hemoglobin (Bld) [Mass/Vol]O rdered By: Rosa Juares on 02-01-2025 Hematocrit (Bld) [Volume fraction] 28.8 % Low 40.0 - 52.0 % [facility] Interpretation and review of laboratory results Abnormal [facility] Laboratory - Chemistry and C hemistry - challengeon 02-01-2025 Magnesium [Mass/Vol] 1.9 mg/dL 1.6 - 2 .6 mg/dL [facility] Laboratory - Coagulationon 0 02-01-2025 PT Coag (Bld) [Time] 20.3 s High 9.0 - 12.0 s [facility] - Hematology and Cell countsOrdered By: Rosa Juares on 02-01-2025 Hemoglobin (Bld) [Mass/Vol] 8.9 g/dL Low 13.0 - 18.0 g/dL [facility] MAGNESIUMon 02-01-2025 Magnesium [Mass/Vol] 1.9 mg/dL Normal 1.6-2.6 [facility] Comment on above: Result Comment: ARPAN Kaplan COMMENTS:Higher values can be expected in females during menses. Performed By: #### L AB113, LAB17, [id number] ####Farm Contractor: DOMENICA JARA ([id number])[facility])[address] [place] [address] Magnesium [Mass/Vol]on 02-01 [facility] No Panel Informationon 02-01 Interpretation and review of laboratory results Normal [facility] Nursing Noteon 02-01-2025 Nursing Note Transport here to take patient to [facility]. Wound Vac tubing clamped and disconnected from wound vac. Facility will determine if tubing is compatible with their wound vacs. Normal [facility] PHOSPHORUSon 02-01-2025 Phosphate [Mass/Vol] 3.4 mg/dL Normal 2.3-4.7 [facility] Comment on above: Performed By: #### L AB113, LAB17, [id number] ####Farm Contractor: DOMENICA JARA ([id number])[facility] ([facility])[address] [place] [address] PROTHROMBIN TIMEon INR Coag (PPP) [Relative time] 2.0 {INR} High 0.9-1.1 [facility] Comment on above: Result Comment: Vaughn mmended Anticoagulant Therapy: SEE BELOW----- INR of 2.0 - 3.0 : - Prophylaxis of Venous Thrombosis (high-risk surgery) - Treatment of Venous Thrombosis - Treatment of Pulmonary Embolism (Includes tissue heart valves, Acute Myocardial Infarction to prevent systemic embolism, Valvular Heart Disease, and Atrial Fibrillation)----- INR of 2.5 - 3.5 : - Mechanical Prosthetic Valves (high risk) - If oral anticoagulant therapy is used to prevent Myocardial Infarction Performed By: #### L AB320 ####Farm Contractor: DOMENICA JARA ([phone])[facility] ([facility])[address] [place] [address] PT Coag (PPP) [Time] 20.3 s High 9.0-12.0 [facility] Comment on above: Performed By: #### L AB320 ####Farm Contractor: DOMENICA JARA ([id number])[facility] ([facility])[address] [place] [address] PT Coag (Bld) [Time]on 02-01 INR Coag (PPP) [Relative time] 2 {INR} High 0.9 - 1.1 [facility] Interpretation and review of laboratory results Abnormal [facility] Phosphate [Moles/Vol]on Phosphate [Mass/Vol] 3.4 mg/dL 2.3 - 4 .7 mg/dL [facility] Progress Noteon 02-01-2025 Progress Note Normal [facility] Progress [facility] Progress [facility] Normal [facility] Progress [facility] Normal [facility] Progress Note Normal [facility] Progress Note Normal [facility] 30on 01-31-2025 30 Normal [facility] 30 Normal [facility] [id number] 01-31-2025 [id number] Updates placed to [facility] via [facility] per [facility] request. Await review and response regarding ability to accept. TCC notified. Electronically signed by NELSON Rodriuges Normal [facility] CBC (HEMOGRAM)on 01-31-2025 Erythrocyte distribution width (RBC) [Ratio] 19.2 % High 11.5-15.0 [facility] Comment on above: Performed By: #### L AB294 ####Farm Contractor: DOMENICA JARA ([id number])[facility] ([facility])[address] [place] [address] Hematocrit (Bld) [Volume fraction] 27.9 % Low 40.0-52.0 [facility] Comment on above: Performed By: #### L AB294 ####Farm Contractor: DOMENICA JARA ([id number])[facility] ([facility])[address] [place] [address] Hemoglobin (Bld) [Mass/Vol] 8.8 g/dL Low 13.0-18.0 [facility] Comment on above: Performed By: #### L AB294 ####Farm Contractor: DOMENICA JARA ([phone])[facility] ([facility])[address] [place] [address] MCH (RBC) [Entitic mass] 28.4 pg Normal 26.0-34.0 [facility] Comment on above: Performed By: #### L AB294 ####Farm Contractor: DOMENICA JARA ([id number])[facility] ([facility])[address] [place] [address] MCHC 31.5 % Normal 30.5-36.0 [facility] Comment on above: Performed By: #### L AB294 ####Farm Contractor: DOMENICA JARA ([id number])[facility] ([facility])[address] [place] [address] MCV (RBC) [Entitic vol] 90.0 fL Normal 77.0-99.0 [facility] Comment on above: Performed By: #### L AB294 ####Farm Contractor: DOMENICA JARA ([id number])[facility] ([facility])[address] [place] [address] Platelet mean volume (Bld) [Entitic vol] 9.0 fL Normal 9.0-12.7 [facility] Comment on above: Performed By: #### L AB294 ####Farm Contractor: DOMENICA JARA ([id number])[facility] ([facility])[address] [place] [address] [place] Platelets (Bld) [#/Vol] 278 10*3/uL Normal 140-440 [facility] Comment on above: Performed By: #### L AB294 ####Farm Contractor: DOMENICA JARA ([id number])[facility])[address] [place] [address] RBC (Bld) [#/Vol] 3.10 10*6/uL Low 4.40-5.90 [facility] Comment on above: Performed By: #### L AB294 ####Farm Contractor: DOMENICA JARA ([id number])[facility] ([facility])[address] [place] [address] WBC (Bld) [#/Vol] 9.3 10*3/uL Normal 3.6-10.7 [facility] Comment on above: Performed By: #### L AB294 ####Farm Contractor: DOMENICA JARA ([id number])[facility])[address] [place] [address] CBC panel Auto (Bld)on 01-31 Erythrocyte distribution width (RBC) [Ratio] 19.2 % High 11.5 - 15.0 % [facility] Hematocrit (Bld) [Volume fraction] 27.9 % Low 40.0 - 52.0 % [facility] Hemoglobin (Bld) [Mass/Vol] 8.8 g/dL Low 13.0 - 18.0 g/dL [facility] Interpretation and review of laboratory results Abnormal [facility] MCH (RBC) [Entitic mass] 28.4 pg 26. 0 - 34.0 pg [facility] MCHC (RBC) [Mass/Vol] 31.5 % 30.5 - 36.0 % [facility] MCV (RBC) [Entitic vol] 90 fL 77.0 - 99.0 fL [facility] Platelet mean volume (Bld) [Entitic vol] 9 fL 9.0 - 12.7 fL [facility] Platelets (Bld) [#/Vol] 278 10*3/uL 140 - 440 10*3/uL [facility] RBC (Bld) [#/Vol] 3.1 10*6/uL Low 4.40 - 5.9 0 10*6/uL [facility] WBC (Bld) [#/Vol] 9.3 10*3/uL 3.6 - 10.7 10*3/uL [facility] COMPREHENSIVE METABOLIC PANE Victor M 01-31-2025 Albumin [Mass/Vol] 2.1 g/dL Low 3.5-5.0 [facility] Comment on above: Performed By: #### L AB113, LAB17, [id number] ####Farm Contractor: DOMENICA JARA ([id number])[facility] [place] [address] ALP [Catalytic activity/Vol] 218 U/L High 40-150 [facility] Comment on above: Performed By: #### Tameka GIMENEZ, LAB17, [id number] ####Farm Contractor: DOMENICA JARA ([id number])[facility] ([facility])[address] [place] [address] ALT [Catalytic activity/Vol] 11 U/L Normal <40 [facility] Comment on above: Performed By: #### Tameka ABAruna, LAB17, [id number] ####Farm Contractor: DOMENICA JARA ([phone])[facility] ([facility])[address] [place] [address] Anion gap [Moles/Vol] 12 mmol/L Normal 3-13 [facility] Comment on above: Performed By: #### Tameka ABAruna, LAB17, [id number] ####Farm Contractor: DOMENICA JARA ([id number])[facility] ([facility])[address] [place] [address] AST [Catalytic activity/Vol] 31 U/L Normal <34 [facility] Comment on above: Performed By: #### L ABAruna, LAB17, [id number] ####Farm Contractor: DOMENICA JARA ([id number])[facility])[address] [place] [address] Bilirubin [Mass/Vol] 0.8 mg/dL Normal <1.2 [facility] Comment on above: Performed By: #### L AB113, LAB17, [id number] ####Farm Contractor: DOMENICA JARA ([id number])[facility] ([facility])[address] [place] [address] Calcium [Mass/Vol] 10.0 mg/dL Normal 8.4-10.2 [facility] Comment on above: Performed By: #### L AB113, LAB17, [id number] ####Farm Contractor: DOMENICA JARA ([id number])[facility] ([facility])[address] [place] [address] [place] Chloride [Moles/Vol] 99 mmol/L Normal 98-107 [facility] Comment on above: Performed By: #### L AB113, LAB17, [id number] ####Farm Contractor: DOMENICA JARA ([id number])[facility] ([facility] [place] [address] CO2 [Moles/Vol] 27 mmol/L Normal 22-29 [facility] Comment on above: Performed By: #### L ABAruna, LAB17, [id number] ####Farm Contractor: DOMENICA JARA ([id number])[facility] ([facility] [place] [address] Creatinine [Mass/Vol] 3.64 mg/dL High 0.72-1.25 [facility] Comment on above: Performed By: #### L AB113, LAB17, [id number] ####Farm Contractor: DOMENICA JARA ([id number])[facility] ([facility] [place] [address] [place] GLOMERULAR FILTRATION RATE ML/MIN/1.73 SQ M.PREDICTED 18.4 mL/min/1.73m*2 Low >60.0 [facility] Comment on above: Result Comment: Calc ulation based on the Chronic Kidney Disease Epidemiology Collaboration (CKD-EPI) equation refit without adjustment for race Performed By: #### L AB113, LAB17, [id number] ####Farm Contractor: DOMENICA JARA ([id number])[facility] ([facility] [place] [address] [place] Glucose [Mass/Vol] 87 mg/dL Normal 74-100 [facility] Comment on above: Performed By: #### L AB113, LAB17, [id number] ####Farm Contractor: DOMENICA JARA ([id number])[facility])[address] [place] [address] Potassium [Moles/Vol] 4.3 mmol/L Normal 3.5-5.1 [facility] Comment on above: Result Comment: [facility] potassium values may be up to 0.5 mmol/L lower than serum values. Performed By: #### Tameka ABAruna, LAB17, [id number] ####Farm Contractor: DOMENICA JARA ([id number])[facility])[address] [place] [address] Protein [Mass/Vol] 7.3 g/dL Normal 6.4-8.3 [facility] Comment on above: Performed By: #### Tameka GIMENEZ, LAB17, [id number] ####Farm Contractor: DOMENICA JARA ([id number])[facility])[address] [place] [address] Sodium [Moles/Vol] 138 mmol/L Normal 136-145 [facility] Comment on above: Performed By: #### Tameka GIMENEZ, LAB17, [id number] ####Farm Contractor: DOMENICA JARA ([id number])[facility])[address] [place] [address] Urea nitrogen [Mass/Vol] 15 mg/dL Normal 9-23 [facility] Comment on above: Performed By: #### Tameka GIMENEZ, LAB17, [id number] ####Farm Contractor: DOMENICA JARA ([phone])[facility])[address] [place] [address] Comprehensive metabolic 1998 panelon 01-31-2025 Albumin [Mass/Vol] 2.1 g/dL Low 3.5 - 5.0 g/dL [facility] ALP [Catalytic activity/Vol] 218 U/L High 40 - 150 U/L [facility] ALT [Catalytic activity/Vol] 11 U/L NINF - 40 U/L [facility] Anion gap [Moles/Vol] 12 mmol/L 3 - 13 mmol/L [facility] AST [Catalytic activity/Vol] 31 U/L NINF - 34 U/L [facility] Bilirubin [Mass/Vol] 0.8 mg/dL NINF - 1.2 mg/dL [facility] Calcium [Mass/Vol] 10 mg/dL 8.4 - 10. 2 mg/dL [facility] Chloride [Moles/Vol] 99 mmol/L 98 - 10 7 mmol/L [facility] CO2 [Moles/Vol] 27 mmol/L 22 - 29 mmol/L [facility] Creatinine [Mass/Vol] 3.64 mg/dL High 0.72 - 1.25 mg/dL [facility] GFR/1.73 sq M.predicted (S/P/Bld) [Vol rate/Area] 18.4 mL/min Low - PINF [facility] Glucose [Mass/Vol] 87 mg/dL 74 - 100 mg/dL [facility] Interpretation and review of laboratory results Abnormal [facility] Potassium [Moles/Vol] 4.3 mmol/L 3.5 - 5.1 mmol/L [facility] Protein [Mass/Vol] 7.3 g/dL 6.4 - 8.3 g/dL [facility] Sodium [Moles/Vol] 138 mmol/L 136 - 145 mmol/L [facility] Urea nitrogen [Mass/Vol] 15 mg/dL 9 - 23 mg/d L [facility] HEMOGLOBIN AND HEMATOCRIT, B LOODon 01-31-2025 Hematocrit (Bld) [Volume fraction] 28.8 % Low 40.0-52.0 [facility] Comment on above: Performed By: #### L AB753 ####Farm Contractor: DOMENICA JARA ([phone])[address] Hemoglobin (Bld) [Mass/Vol] 9.2 g/dL Low 13.0-18.0 [facility] Comment on above: Performed By: #### L AB753 ####Farm Contractor: DOMENICA JARA ([phone])[address] Hemoglobin (Bld) [Mass/Vol]o n 01-31-2025 Hematocrit (Bld) [Volume fraction] 28.8 % Low 40.0 - 52.0 % [facility] Interpretation and review of laboratory results Abnormal [facility] Laboratory - Chemistry and C hemistry - challengeon 01-31-2025 Magnesium [Mass/Vol] 2 mg/dL 1.6 - 2 .6 mg/dL [facility] Laboratory - Coagulationon 0 01-31-2025 PT Coag (Bld) [Time] 22.4 s High 9.0 - 12.0 s [facility] - Hematology and Cell countson 01-31-2025 Hemoglobin (Bld) [Mass/Vol] 9.2 g/dL Low 13.0 - 18.0 g/dL [facility] MAGNESIUMon 01-31-2025 Magnesium [Mass/Vol] 2.0 mg/dL Normal 1.6-2.6 [facility] Comment on above: Result Comment: ARPAN Kaplan COMMENTS:Higher values can be expected in females during menses. Performed By: #### L AB113, LAB17, [id number] ####Farm Contractor: DOMENICA JARA ([phone])[address] Magnesium [Mass/Vol]on 01-31 [facility] No Panel Informationon 01-31 Interpretation and review of laboratory results Normal [facility] Nursing Noteon 01-31-2025 Nursing Note Wound Vac Dressing leaking with foam falling out. Dressing removed and W-D drsg applied. Normal [facility] Nursing Note Patient is out of room at time of visit. Will continue to follow patient for wound care needs. Wanda Quesada RN Normal [facility] Nursing Note Normal [facility] PHOSPHORUSon 01-31-2025 Phosphate [Mass/Vol] 4.6 mg/dL Normal 2.3-4.7 [facility] Comment on above: Performed By: #### L AB113, LAB17, [id number] ####Farm Contractor: DOMENICA JARA ([phone])[facility] ([facility])[address] [place] [address] PROTHROMBIN TIMEon INR Coag (PPP) [Relative time] 2.2 {INR} High 0.9-1.1 [facility] Comment on above: Result Comment: Vaughn mmended Anticoagulant Therapy: SEE BELOW----- INR of 2.0 - 3.0 : - Prophylaxis of Venous Thrombosis (high-risk surgery) - Treatment of Venous Thrombosis - Treatment of Pulmonary Embolism (Includes tissue heart valves, Acute Myocardial Infarction to prevent systemic embolism, Valvular Heart Disease, and Atrial Fibrillation)----- INR of 2.5 - 3.5 : - Mechanical Prosthetic Valves (high risk) - If oral anticoagulant therapy is used to prevent Myocardial Infarction Performed By: #### L AB320 ####Farm Contractor: DOMENICA JARA ([id number])[facility] [place] [address] PT Coag (PPP) [Time] 22.4 s High 9.0-12.0 [facility] Comment on above: Performed By: #### L AB320 ####Farm Contractor: DOMENICA JARA ([id number])[facility] ([facility])[address] [place] [address] PT Coag (Bld) [Time]on 01-31 INR Coag (PPP) [Relative time] 2.2 {INR} High 0.9 - 1.1 [facility] Interpretation and review of laboratory results Abnormal [facility] Phosphate [Moles/Vol]on Phosphate [Mass/Vol] 4.6 mg/dL 2.3 - 4 .7 mg/dL [facility] Progress Noteon 01-31-2025 Progress Note Normal [facility] Progress Note Normal [facility] Progress Note Normal [facility] Progress [facility] Progress Note OCCUPATIONAL THERAPY [facility] Name/MRN: Jair Snyder ([id number]) Date: 01/31/2025 Attempted OT re-eval this AM, pt OOR at dialysis. Will follow and re-attempt as able. Giuliana Baird, OTR/L Normal [facility] Progress Note Normal [facility] Progress Note Normal [facility] Progress Note Normal [facility] 30on 01-30-2025 30 Normal [facility] [id number] 01-30-2025 [id number] Message sent to Rn Spine to start [facility] auth for [place] [facility] [place]. Normal [facility] [id number] Normal [facility] BASIC METABOLIC PANELon 05-0 Anion gap [Moles/Vol] 13 mmol/L Normal 3-13 [facility] Comment on above: Performed By: #### L AB103, GCP134, LAB15 ####Farm Contractor: DOMENICA JARA ([phone])[facility] ([facility])[address] [place] [address] Calcium [Mass/Vol] 9.6 mg/dL Normal 8.4-10.2 [facility] Comment on above: Performed By: #### L AB103, [id number], LAB15 ####Farm Contractor: DOMENICA JARA ([phone])[facility] ([facility])[address] [place] [address] Chloride [Moles/Vol] 99 mmol/L Normal 98-107 [facility] Comment on above: Performed By: #### L AB103, [id number], LAB15 ####Farm Contractor: DOMENICA JARA ([id number])[facility] ([facility])[address] [place] [address] CO2 [Moles/Vol] 23 mmol/L Normal 22-29 [facility] Comment on above: Performed By: #### L AB103, [id number], LAB15 ####Farm Contractor: DOMENICA JARA ([id number])[facility] [place] [address] Creatinine [Mass/Vol] 2.56 mg/dL High 0.72-1.25 [facility] Comment on above: Performed By: #### L AB103, [id number], LAB15 ####Farm Contractor: DOMENICA JARA ([id number])[facility] ([facility])[address] [place] [address] [place] GLOMERULAR FILTRATION RATE ML/MIN/1.73 SQ M.PREDICTED 28.1 mL/min/1.73m*2 Low >60.0 [facility] Comment on above: Result Comment: Calc ulation based on the Chronic Kidney Disease Epidemiology Collaboration (CKD-EPI) equation refit without adjustment for race Performed By: #### L AB103, [id number], LAB15 ####Farm Contractor: DOMENICA JARA ([id number])[facility] ([facility])[address] [place] [address] Glucose [Mass/Vol] 88 mg/dL Normal 74-100 [facility] Comment on above: Performed By: #### L AB103, [id number], LAB15 ####Farm Contractor: DOMENICA JARA ([id number])[facility])[address] [place] [address] Potassium [Moles/Vol] 3.7 mmol/L Normal 3.5-5.1 [facility] Comment on above: Result Comment: [facility] potassium values may be up to 0.5 mmol/L lower than serum values. Performed By: #### L AB103, [id number], LAB15 ####Farm Contractor: DOMENICA JARA ([id number])[facility] ([facility])[address] [place] [address] Sodium [Moles/Vol] 135 mmol/L Low 136-145 [facility] Comment on above: Performed By: #### L AB103, [id number], LAB15 ####Farm Contractor: DOMENICA JARA ([id number])[facility])[address] [place] [address] Urea nitrogen [Mass/Vol] 10 mg/dL Normal 9-23 [facility] Comment on above: Performed By: #### L AB103, [id number], LAB15 ####Farm Contractor: DOMENICA JARA ([id number])[facility])[address] [place] [address] Basic metabolic 1998 panelon 01-30-2025 Anion gap [Moles/Vol] 13 mmol/L 3 - 13 mmol/L [facility] Calcium [Mass/Vol] 9.6 mg/dL 8.4 - 10. 2 mg/dL [facility] Chloride [Moles/Vol] 99 mmol/L 98 - 10 7 mmol/L [facility] CO2 [Moles/Vol] 23 mmol/L 22 - 29 mmol/L [facility] Creatinine [Mass/Vol] 2.56 mg/dL High 0.72 - 1.25 mg/dL [facility] GFR/1.73 sq M.predicted (S/P/Bld) [Vol rate/Area] 28.1 mL/min Low - PINF [facility] Glucose [Mass/Vol] 88 mg/dL 74 - 100 mg/dL [facility] Interpretation and review of laboratory results Abnormal [facility] Potassium [Moles/Vol] 3.7 mmol/L 3.5 - 5.1 mmol/L [facility] Sodium [Moles/Vol] 135 mmol/L Low 136 - 145 mmol/L [facility] Urea nitrogen [Mass/Vol] 10 mg/dL 9 - 23 mg/d L [facility] CBC (HEMOGRAM)on 01-30-2025 Erythrocyte distribution width (RBC) [Ratio] 18.9 % High 11.5-15.0 [facility] Comment on above: Performed By: #### L AB294 ####Farm Contractor: DOMENICA JARA ([id number])[address] Hematocrit (Bld) [Volume fraction] 28.1 % Low 40.0-52.0 [facility] Comment on above: Performed By: #### L AB294 ####Farm Contractor: DOMENICA JARA ([id number])[address] Hemoglobin (Bld) [Mass/Vol] 8.7 g/dL Low 13.0-18.0 [facility] Comment on above: Performed By: #### L AB294 ####Farm Contractor: DOMENICA JARA ([id number])[facility])[address] [place] [address] MCH (RBC) [Entitic mass] 27.6 pg Normal 26.0-34.0 [facility] Comment on above: Performed By: #### L AB294 ####Farm Contractor: DOMENICA JARA ([id number])[facility] ([facility])[address] [place] [address] MCHC 31.0 % Normal 30.5-36.0 [facility] Comment on above: Performed By: #### L AB294 ####Farm Contractor: DOMENICA JARA ([id number])[facility] ([facility])[address] [place] [address] MCV (RBC) [Entitic vol] 89.2 fL Normal 77.0-99.0 [facility] Comment on above: Performed By: #### L AB294 ####Farm Contractor: DOMENICA JARA ([id number])[facility])[address] [place] [address] Platelet mean volume (Bld) [Entitic vol] 9.1 fL Normal 9.0-12.7 [facility] Comment on above: Performed By: #### L AB294 ####Farm Contractor: DOMENICA JARA ([id number])[facility] ([facility])[address] [place] [address] [place] Platelets (Bld) [#/Vol] 276 10*3/uL Normal 140-440 [facility] Comment on above: Performed By: #### L AB294 ####Farm Contractor: DOMENICA JARA ([id number])[facility])[address] [place] [address] RBC (Bld) [#/Vol] 3.15 10*6/uL Low 4.40-5.90 [facility] Comment on above: Performed By: #### L AB294 ####Farm Contractor: DOMENICA JARA ([id number])[facility] ([facility])[address] [place] [address] [place] WBC (Bld) [#/Vol] 8.8 10*3/uL Normal 3.6-10.7 [facility] Comment on above: Performed By: #### L AB294 ####Farm Contractor: DOMENICA JARA ([id number])[facility] ([facility])[address] [place] [address] CBC panel Auto (Bld)on 01-30 Erythrocyte distribution width (RBC) [Ratio] 18.9 % High 11.5 - 15.0 % [facility] Hematocrit (Bld) [Volume fraction] 28.1 % Low 40.0 - 52.0 % [facility] Hemoglobin (Bld) [Mass/Vol] 8.7 g/dL Low 13.0 - 18.0 g/dL [facility] Interpretation and review of laboratory results Abnormal [facility] MCH (RBC) [Entitic mass] 27.6 pg 26. 0 - 34.0 pg [facility] MCHC (RBC) [Mass/Vol] 31 % 30.5 - 36.0 % [facility] MCV (RBC) [Entitic vol] 89.2 fL 77.0 - 99.0 fL [facility] Platelet mean volume (Bld) [Entitic vol] 9.1 fL 9.0 - 12.7 fL [facility] Platelets (Bld) [#/Vol] 276 10*3/uL 140 - 440 10*3/uL [facility] RBC (Bld) [#/Vol] 3.15 10*6/uL Low 4.40 - 5.9 0 10*6/uL [facility] WBC (Bld) [#/Vol] 8.8 10*3/uL 3.6 - 10.7 10*3/uL [facility] HEMOGLOBIN AND HEMATOCRIT, B LOODon 01-30-2025 Hematocrit (Bld) [Volume fraction] 31.5 % Low 40.0-52.0 [facility] Comment on above: Performed By: #### L AB753 ####Farm Contractor: DOMENICA JARA ([id number])[facility] [place] [address] Hemoglobin (Bld) [Mass/Vol] 9.8 g/dL Low 13.0-18.0 [facility] Comment on above: Performed By: #### L AB753 ####Farm Contractor: DOMENICA JARA ([id number])[facility] ([facility])[address] [place] [address] Hemoglobin (Bld) [Mass/Vol]O rdered By: Rikki Caballero on 01-30-2025 Hematocrit (Bld) [Volume fraction] 31.5 % Low 40.0 - 52.0 % [facility] Interpretation and review of laboratory results Abnormal [facility] Laboratory - Chemistry and C hemistry - challengeon 01-30-2025 Glucose [Mass/Vol] 106 mg/dL High 70 - 100 mg/dL [facility] Glucose [Mass/Vol] 107 mg/dL High 70 - 100 mg/dL [facility] Glucose [Mass/Vol] 77 mg/dL 70 - 100 mg/dL [facility] Magnesium [Mass/Vol] 1.9 mg/dL 1.6 - 2 .6 mg/dL [facility] Laboratory - Coagulationon 0 01-30-2025 PT Coag (Bld) [Time] 24.9 s High 9.0 - 12.0 s [facility] - Hematology and Cell countsOrdered By: Rikki Caballero on 01-30-2025 Hemoglobin (Bld) [Mass/Vol] 9.8 g/dL Low 13.0 - 18.0 g/dL [facility] MAGNESIUMon 01-30-2025 Magnesium [Mass/Vol] 1.9 mg/dL Normal 1.6-2.6 [facility] Comment on above: Result Comment: ARPAN Kaplan COMMENTS:Higher values can be expected in females during menses. Performed By: #### L AB103, EOE014, LAB15 ####Farm Contractor: DOMENICA JARA ([phone])[address] Magnesium [Mass/Vol]on 01-30 Interpretation and review of laboratory results Normal [facility] No Panel Informationon 01-30 Interpretation and review of laboratory results Abnormal [facility] RADIOLOGY SYSTEM [facility] RADIOLOGY SYSTEM [facility] Radiology Study observation (narrative) [facility] Interpretation and review of laboratory results Abnormal [facility] Interpretation and review of laboratory results Normal [facility] Blood Expiration Date [id number] S [facility] CrossQuizFortunetch interpretation COMP [facility] Dispense Status Released from [employer] [facility] Product Blood Type 9500 [facility] PRODUCT CODE [id number] [facility] Unit ABO O [facility] Unit Number [id number] [facility] RH Negative [facility] Volume 300 mL [facility] No Panel InformationOrdered By: Jun Borrero on 01-30-2025 [facility] Work Phone: Nursing Noteon 01-30-2025 Nursing Note Normal [facility] PHOSPHORUSon 01-30-2025 Phosphate [Mass/Vol] 3.7 mg/dL Normal 2.3-4.7 [facility] Comment on above: Performed By: #### L AB103, [id number], LAB15 ####Farm Contractor: DOMENICA JARA ([phone])[facility])[address] [place] [address] PROTHROMBIN TIMEon INR Coag (PPP) [Relative time] 2.5 {INR} High 0.9-1.1 [facility] Comment on above: Performed By: #### L AB320 ####Farm Contractor: DOMENICA JARA ([id number])[facility] ([facility])[address] [place] [address] PT Coag (PPP) [Time] 24.9 s High 9.0-12.0 [facility] Comment on above: Performed By: #### L AB320 ####Farm Contractor: DOMENICA JARA ([id number])[address] PT Coag (Bld) [Time]on 01-30 INR Coag (PPP) [Relative time] 2.5 {INR} High 0.9 - 1.1 [facility] Interpretation and review of laboratory results Abnormal [facility] Phosphate [Moles/Vol]on Interpretation and review of laboratory results Normal [facility] Phosphate [Mass/Vol] 3.7 mg/dL 2.3 - 4 .7 mg/dL [facility] Progress Noteon 01-30-2025 Progress Note Normal [facility] Progress Note OCCUPATIONAL THERAPY [facility] Name/MRN: Jair Snyder ([id number]) Date: 01/30/2025 Attempted OT services however, Pt is currently OOR-at specials for IR line- Per RN. Will re attempt for pre cert as schedule permits. VICKY Bates [facility] Progress Note Speech-Language Pathology Patient is off of the unit for tunnel catheter placement. Will reschedule dysphagia treatment session for 01/31/2025 and determine if patient is a candidate for diet upgrade. Christina Limon MS, CCC/E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 [facility] Progress Note Normal [facility] Progress Note Normal [facility] Progress Note Normal [facility] Progress [facility] Progress Note [facility] 30on 01-29-2025 30 Normal [facility] 30 [facility] [id number] 01-29-2025 [id number] Updates placed to [facility] TCC request. Await review and response regarding ability to accept. TCC notified. Electronically signed by NELSON Rodrigues [facility] [phone] [facility] 36on 01-29-2025 36 Chart reviewed, patient appears to be sensitive to warfarin at this time and I wouldn't be able to guarantee INR remains less than 3, so opted to hold dose today. I canceled order. [facility] 36 [facility] APTTon 01-29-2025 aPTT Coag (Bld) [Time] 51.4 s High 20.0-30.5 [facility] Comment on above: Result Comment: ARPAN Kaplan COMMENTS:NOTE: The therapeutic time for Heparin anticoagulation, based on Xa activity inhibition, is an APTT of 46-80 seconds. Performed By: #### L AB325, [id number] ####Farm Contractor: DOMENICA JARA ([id number])[facility] ([facility])[address] [place] [address] BASIC METABOLIC PANELon Anion gap [Moles/Vol] 17 mmol/L High 3-13 [facility] Comment on above: Performed By: #### L AB113, [id number], LAB15 ####Farm Contractor: DOMENICA JARA ([id number])[facility] [place] [address] Calcium [Mass/Vol] 9.8 mg/dL Normal 8.4-10.2 [facility] Comment on above: Performed By: #### L AB113, [id number], LAB15 ####Farm Contractor: DOMENICA JARA ([phone])[facility] [place] [address] Chloride [Moles/Vol] 94 mmol/L Low 98-107 [facility] Comment on above: Performed By: #### L AB113, TSB470, LAB15 ####Farm Contractor: DOMENICA JARA ([id number])[facility] [place] [address] CO2 [Moles/Vol] 23 mmol/L Normal 22-29 [facility] Comment on above: Performed By: #### L AB113, [id number], LAB15 ####Farm Contractor: DOMENICA JARA ([id number])[facility] ([facility])[address] [place] [address] Creatinine [Mass/Vol] 4.17 mg/dL High 0.72-1.25 [facility] Comment on above: Performed By: #### L AB113, [id number], LAB15 ####Farm Contractor: DOMENICA JARA ([id number])[facility] ([facility])[address] [place] [address] GLOMERULAR FILTRATION RATE ML/MIN/1.73 SQ M.PREDICTED 15.6 mL/min/1.73m*2 Low >60.0 [facility] Comment on above: Result Comment: Calc ulation based on the Chronic Kidney Disease Epidemiology Collaboration (CKD-EPI) equation refit without adjustment for race Performed By: #### L AB113, UEN353, LAB15 ####Farm Contractor: DOMENICA JARA ([id number])[facility] ([facility])[address] [place] [address] Glucose [Mass/Vol] 80 mg/dL Normal 74-100 [facility] Comment on above: Performed By: #### L AB113, [id number], LAB15 ####Farm Contractor: DOMENICA JARA ([id number])[facility] [place] [address] Potassium [Moles/Vol] 3.7 mmol/L Normal 3.5-5.1 [facility] Comment on above: Result Comment: [facility] potassium values may be up to 0.5 mmol/L lower than serum values. Performed By: #### L AB113, [id number], LAB15 ####Farm Contractor: DOMENICA JARA ([id number])[facility] ([facility])[address] [place] [address] Sodium [Moles/Vol] 134 mmol/L Low 136-145 [facility] Comment on above: Performed By: #### L AB113, [id number], LAB15 ####Farm Contractor: DOMENICA JARA ([phone])[facility] ([facility])[address] [place] [address] Urea nitrogen [Mass/Vol] 21 mg/dL Normal 9-23 [facility] Comment on above: Performed By: #### L AB113, [id number], LAB15 ####Farm Contractor: DOMENICA JARA ([id number])[facility] ([facility])[address] [place] [address] Basic metabolic 1998 panelon 01-29-2025 Anion gap [Moles/Vol] 17 mmol/L High 3 - 13 mmol/L [facility] Calcium [Mass/Vol] 9.8 mg/dL 8.4 - 10. 2 mg/dL [facility] Chloride [Moles/Vol] 94 mmol/L Low 98 - 10 7 mmol/L [facility] CO2 [Moles/Vol] 23 mmol/L 22 - 29 mmol/L [facility] Creatinine [Mass/Vol] 4.17 mg/dL High 0.72 - 1.25 mg/dL [facility] GFR/1.73 sq M.predicted (S/P/Bld) [Vol rate/Area] 15.6 mL/min Low - PINF [facility] Glucose [Mass/Vol] 80 mg/dL 74 - 100 mg/dL [facility] Potassium [Moles/Vol] 3.7 mmol/L 3.5 - 5.1 mmol/L [facility] Sodium [Moles/Vol] 134 mmol/L Low 136 - 145 mmol/L [facility] Urea nitrogen [Mass/Vol] 21 mg/dL 9 - 23 mg/d L [facility] CBC (HEMOGRAM)on 01-29-2025 Erythrocyte distribution width (RBC) [Ratio] 19.0 % High 11.5-15.0 [facility] Comment on above: Performed By: #### L [id number] ####Farm Contractor: DOMENICA JARA ([id number])[facility])[address] [place] [address] Hematocrit (Bld) [Volume fraction] 27.3 % Low 40.0-52.0 [facility] Comment on above: Performed By: #### L AB294 ####Farm Contractor: DOMENICA JARA ([phone])[facility])[address] [place] [address] Hemoglobin (Bld) [Mass/Vol] 8.6 g/dL Low 13.0-18.0 [facility] Comment on above: Performed By: #### L AB294 ####Farm Contractor: DOMENICA JARA ([id number])[facility])[address] [place] [address] MCH (RBC) [Entitic mass] 28.1 pg Normal 26.0-34.0 [facility] Comment on above: Performed By: #### L AB294 ####Farm Contractor: DOMENICA JARA ([id number])[facility])[address] [place] [address] MCHC 31.5 % Normal 30.5-36.0 [facility] Comment on above: Performed By: #### L AB294 ####Farm Contractor: DOMENICA JARA ([id number])[facility])[address] [place] [address] MCV (RBC) [Entitic vol] 89.2 fL Normal 77.0-99.0 [facility] Comment on above: Performed By: #### L AB294 ####Farm Contractor: DOMENICA JARA ([id number])[facility])[address] [place] [address] Platelet mean volume (Bld) [Entitic vol] 9.4 fL Normal 9.0-12.7 [facility] Comment on above: Performed By: #### L AB294 ####Farm Contractor: DOMENICA JARA ([id number])[facility] ([facility])[address] [place] [address] Platelets (Bld) [#/Vol] 271 10*3/uL Normal 140-440 [facility] Comment on above: Performed By: #### L [id number] ####Farm Contractor: DOMENICA JARA ([phone])[facility])[address] [place] [address] RBC (Bld) [#/Vol] 3.06 10*6/uL Low 4.40-5.90 [facility] Comment on above: Performed By: #### L AB294 ####Farm Contractor: DOMENICA JARA ([id number])[facility] ([facility])[address] [place] [address] WBC (Bld) [#/Vol] 9.4 10*3/uL Normal 3.6-10.7 [facility] Comment on above: Performed By: #### L AB294 ####Farm Contractor: DOMENICA JARA ([phone])[facility] ([facility])[address] [place] [address] CBC panel Auto (Bld)on 01-29 Erythrocyte distribution width (RBC) [Ratio] 19 % High 11.5 - 15.0 % [facility] Hematocrit (Bld) [Volume fraction] 27.3 % Low 40.0 - 52.0 % [facility] Hemoglobin (Bld) [Mass/Vol] 8.6 g/dL Low 13.0 - 18.0 g/dL [facility] Interpretation and review of laboratory results Abnormal [facility] MCH (RBC) [Entitic mass] 28.1 pg 26. 0 - 34.0 pg [facility] MCHC (RBC) [Mass/Vol] 31.5 % 30.5 - 36.0 % [facility] MCV (RBC) [Entitic vol] 89.2 fL 77.0 - 99.0 fL [facility] Platelet mean volume (Bld) [Entitic vol] 9.4 fL 9.0 - 12.7 fL [facility] Platelets (Bld) [#/Vol] 271 10*3/uL 140 - 440 10*3/uL [facility] RBC (Bld) [#/Vol] 3.06 10*6/uL Low 4.40 - 5.9 0 10*6/uL [facility] WBC (Bld) [#/Vol] 9.4 10*3/uL 3.6 - 10.7 10*3/uL [facility] Laboratory - Chemistry and C hemistry - challengeon 01-29-2025 Glucose [Mass/Vol] 82 mg/dL 70 - 100 mg/dL [facility] Glucose [Mass/Vol] 87 mg/dL 70 - 100 mg/dL [facility] Glucose [Mass/Vol] 91 mg/dL 70 - 100 mg/dL [facility] Magnesium [Mass/Vol] 2 mg/dL 1.6 - 2 .6 mg/dL [facility] Laboratory - Coagulationon 0 01-29-2025 Coagulation factor VIII activity actual/normal Coag (PPP) [Relative time] 412 % High 56 - 191 % [facility] vWf Ag actual/normal IA (PPP) [Relative mass conc] 281 % High 52 - 214 % [facility] vWf multimers Ql (PPP) See Note [facility] vWf ristocetin cofactor act actual/normal Platelet aggregation (PPP) [Relative time] 200 % 51 - 215 % [facility] PT Coag (Bld) [Time] 24 s High 9.0 - 12.0 s [facility] MAGNESIUMon 01-29-2025 Magnesium [Mass/Vol] 2.0 mg/dL Normal 1.6-2.6 [facility] Comment on above: Result Comment: ARPAN R COMMENTS:Higher values can be expected in females during menses. Performed By: #### L AB113, [id number], LAB15 ####Farm Contractor: DOMENICA JARA ([phone])[facility] ([facility])[address] Magnesium [Mass/Vol]on 01-29 Interpretation and review of laboratory results Normal [facility] No Panel Informationon 01-29 Interpretation and review of laboratory results Normal [facility] Interpretation and review of laboratory results Normal [facility] Interpretation and review of laboratory results Abnormal [facility] Interpretation and review of laboratory results Normal [facility] Interpretation and review of laboratory results Abnormal [facility] Interpretation and review of laboratory results Abnormal [facility] Nursing Noteon 01-29-2025 Nursing Note I was able to get him into chair yesterday. Today he refuses but states maybe later. He is tired from dialysis Normal [facility] Nursing Note Patient bathed, refusing gown. He has some bloody drainage on pad and Dr Lira in at bedside and aware. Looks like it may be from wound but unsure. Normal [facility] Nursing Note Per Dr Lira request I called the coumadin clinic for them to advise on if patient should take tonight dose with pending tunneled cath placement Normal [facility] Nursing Note Patient returned from dialysis. He is sleeping but awakens for assessment. Lunch at bedside and he wants it left for now. Call light in reach Normal [facility] Nursing Note Normal [facility] Nursing Note Normal [facility] Nursing Note Patient in bed, anxious picking at everything. Refusing wound care to change his dressing. Dialysis is ready for patient. They would like me to hold off on his lopressor. Normal [facility] PHOSPHORUSon 01-29-2025 Phosphate [Mass/Vol] 4.9 mg/dL High 2.3-4.7 [facility] Comment on above: Performed By: #### L AB113, [id number], LAB15 ####Farm Contractor: DOMENICA JARA ([id number])[facility] [place] [address] PROTHROMBIN TIMEon INR Coag (PPP) [Relative time] 2.4 {INR} High 0.9-1.1 [facility] Comment on above: Result Comment: Vaughn mmended Anticoagulant Therapy: SEE BELOW----- INR of 2.0 - 3.0 : - Prophylaxis of Venous Thrombosis (high-risk surgery) - Treatment of Venous Thrombosis - Treatment of Pulmonary Embolism (Includes tissue heart valves, Acute Myocardial Infarction to prevent systemic embolism, Valvular Heart Disease, and Atrial Fibrillation)----- INR of 2.5 - 3.5 : - Mechanical Prosthetic Valves (high risk) - If oral anticoagulant therapy is used to prevent Myocardial Infarction Performed By: #### Tameka AB325, [id number] ####Farm Contractor: DOMENICA JARA ([phone])[address] PT Coag (PPP) [Time] 24.0 s High 9.0-12.0 [facility] Comment on above: Performed By: #### Tameka AB325, [id number] ####Farm Contractor: DOMENICA JARA ([phone])[address] PT Coag (Bld) [Time]on 01-29 INR Coag (PPP) [Relative time] 2.4 {INR} High 0.9 - 1.1 [facility] Phosphate [Moles/Vol]on Phosphate [Mass/Vol] 4.9 mg/dL High 2.3 - 4 .7 mg/dL [facility] Progress Noteon 01-29-2025 Progress Note Normal [facility] Progress Note Normal [facility] Progress [facility] Normal [facility] Progress Note Normal [facility] Progress Note Normal [facility] Progress Note Normal [facility] aPTT Coag (Bld) [Time]on aPTT Coag (PPP) [Time] 51.4 s High 20.0 - 30.5 s [facility] 30on 01-28-2025 30 Normal [facility] 30 Normal [facility] APTTon 01-28-2025 aPTT Coag (Bld) [Time] 49.0 s High 20.0-30.5 [facility] Comment on above: Result Comment: ARPAN Kaplan COMMENTS:NOTE: The therapeutic time for Heparin anticoagulation, based on Xa activity inhibition, is an APTT of 46-80 seconds. Performed By: #### L AB325 ####Farm Contractor: DOMENICA JARA ([id number])[facility] ([facility])[address] [place] [address] aPTT Coag (Bld) [Time] 46.3 s High 20.0-30.5 [facility] Comment on above: Result Comment: ARPAN R COMMENTS:NOTE: The therapeutic time for Heparin anticoagulation, based on Xa activity inhibition, is an APTT of 46-80 seconds. Performed By: #### L AB325, [id number] ####Farm Contractor: DOMENICA JARA ([id number])[facility] ([facility])[address] [place] [address] BASIC METABOLIC PANELon 05-0 Anion gap [Moles/Vol] 13 mmol/L Normal 3-13 [facility] Comment on above: Performed By: #### L AB15, [id number], [id number] ####Farm Contractor: DOMENICA JARA ([id number])[facility] ([facility])[address] [place] [address] Calcium [Mass/Vol] 10.0 mg/dL Normal 8.4-10.2 [facility] Comment on above: Performed By: #### L AB15, [id number], [id number] ####Farm Contractor: DOMENICA JARA ([phone])[facility] ([facility])[address] [place] [address] [place] Chloride [Moles/Vol] 98 mmol/L Normal 98-107 [facility] Comment on above: Performed By: #### L AB15, [id number], [id number] ####Farm Contractor: DOMENICA JARA ([id number])[facility] ([facility])[address] [place] [address] [place] CO2 [Moles/Vol] 26 mmol/L Normal 22-29 [facility] Comment on above: Performed By: #### L AB15, ULW205, KMR513 ####Farm Contractor: DOMENICA JARA ([phone])[facility])[address] [place] [address] Creatinine [Mass/Vol] 3.37 mg/dL High 0.72-1.25 [facility] Comment on above: Performed By: #### L AB15, HMW310, IRW396 ####Farm Contractor: DOMENICA JARA ([phone])[facility])[address] [place] [address] GLOMERULAR FILTRATION RATE ML/MIN/1.73 SQ M.PREDICTED 20.2 mL/min/1.73m*2 Low >60.0 [facility] Comment on above: Result Comment: Calc ulation based on the Chronic Kidney Disease Epidemiology Collaboration (CKD-EPI) equation refit without adjustment for race Performed By: #### L AB15, [id number], MAK976 ####Farm Contractor: DOMENICA JARA ([phone])[facility])[address] [place] [address] Glucose [Mass/Vol] 82 mg/dL Normal 74-100 [facility] Comment on above: Performed By: #### L AB15, [id number], DWI114 ####Farm Contractor: DOMENICA JARA ([id number])[address] Potassium [Moles/Vol] 3.6 mmol/L Normal 3.5-5.1 [facility] Comment on above: Result Comment: [facility] potassium values may be up to 0.5 mmol/L lower than serum values. Performed By: #### L AB15, [id number], [id number] ####Farm Contractor: DOMENICA JARA ([id number])[facility])[address] [place] [address] Sodium [Moles/Vol] 137 mmol/L Normal 136-145 [facility] Comment on above: Performed By: #### L AB15, [id number], OKR021 ####Farm Contractor: DOMENICA JARA ([phone])[address] [address] [place] Urea nitrogen [Mass/Vol] 14 mg/dL Normal 9-23 [facility] Comment on above: Performed By: #### L AB15, [id number], SWV355 ####Farm Contractor: DOMENICA JARA ([phone])[address] Basic metabolic 1998 panelon 01-28-2025 Anion gap [Moles/Vol] 13 mmol/L 3 - 13 mmol/L [facility] Calcium [Mass/Vol] 10 mg/dL 8.4 - 10. 2 mg/dL [facility] Chloride [Moles/Vol] 98 mmol/L 98 - 10 7 mmol/L [facility] CO2 [Moles/Vol] 26 mmol/L 22 - 29 mmol/L [facility] Creatinine [Mass/Vol] 3.37 mg/dL High 0.72 - 1.25 mg/dL [facility] GFR/1.73 sq M.predicted (S/P/Bld) [Vol rate/Area] 20.2 mL/min Low - PINF [facility] Glucose [Mass/Vol] 82 mg/dL 74 - 100 mg/dL [facility] Interpretation and review of laboratory results Abnormal [facility] Potassium [Moles/Vol] 3.6 mmol/L 3.5 - 5.1 mmol/L [facility] Sodium [Moles/Vol] 137 mmol/L 136 - 145 mmol/L [facility] Urea nitrogen [Mass/Vol] 14 mg/dL 9 - 23 mg/d L [facility] CBC (HEMOGRAM)on 01-28-2025 Erythrocyte distribution width (RBC) [Ratio] 19.0 % High 11.5-15.0 [facility] Comment on above: Performed By: #### L [id number] ####Farm Contractor: DOMENICA JARA ([phone])[address] Hematocrit (Bld) [Volume fraction] 26.3 % Low 40.0-52.0 [facility] Comment on above: Performed By: #### L AB294 ####Farm Contractor: DOMENICA JARA ([id number])[facility])[address] [place] [address] Hemoglobin (Bld) [Mass/Vol] 8.5 g/dL Low 13.0-18.0 [facility] Comment on above: Performed By: #### L AB294 ####Farm Contractor: DOMENICA JARA ([phone])[facility])[address] [place] [address] MCH (RBC) [Entitic mass] 28.2 pg Normal 26.0-34.0 [facility] Comment on above: Performed By: #### L AB294 ####Farm Contractor: DOMENICA JARA ([id number])[facility])[address] [place] [address] MCHC 32.3 % Normal 30.5-36.0 [facility] Comment on above: Performed By: #### L AB294 ####Farm Contractor: DOMENICA JARA ([id number])[facility])[address] [place] [address] MCV (RBC) [Entitic vol] 87.4 fL Normal 77.0-99.0 S [facility] Comment on above: Performed By: #### L AB294 ####Farm Contractor: DOMENICA JARA ([id number])[facility])[address] [place] [address] Platelet mean volume (Bld) [Entitic vol] 9.3 fL Normal 9.0-12.7 [facility] Comment on above: Performed By: #### L AB294 ####Farm Contractor: DOMENICA JARA ([id number])[facility])[address] [place] [address] Platelets (Bld) [#/Vol] 240 10*3/uL Normal 140-440 [facility] Comment on above: Performed By: #### L AB294 ####Farm Contractor: DOMENICA JARA ([id number])[facility])[address] [place] [address] RBC (Bld) [#/Vol] 3.01 10*6/uL Low 4.40-5.90 [facility] Comment on above: Performed By: #### L AB294 ####Farm Contractor: DOMENICA JARA ([id number])[facility] [place] [address] WBC (Bld) [#/Vol] 9.8 10*3/uL Normal 3.6-10.7 [facility] Comment on above: Performed By: #### L AB294 ####Farm Contractor: DOMENICA JARA ([phone])[facility] [place] [address] CBC panel Auto (Bld)on 01-28 Erythrocyte distribution width (RBC) [Ratio] 19 % High 11.5 - 15.0 % [facility] Hematocrit (Bld) [Volume fraction] 26.3 % Low 40.0 - 52.0 % [facility] Hemoglobin (Bld) [Mass/Vol] 8.5 g/dL Low 13.0 - 18.0 g/dL [facility] Interpretation and review of laboratory results Abnormal [facility] MCH (RBC) [Entitic mass] 28.2 pg 26. 0 - 34.0 pg [facility] MCHC (RBC) [Mass/Vol] 32.3 % 30.5 - 36.0 % [facility] MCV (RBC) [Entitic vol] 87.4 fL 77.0 - 99.0 fL [facility] Platelet mean volume (Bld) [Entitic vol] 9.3 fL 9.0 - 12.7 fL [facility] Platelets (Bld) [#/Vol] 240 10*3/uL 140 - 440 10*3/uL [facility] RBC (Bld) [#/Vol] 3.01 10*6/uL Low 4.40 - 5.9 0 10*6/uL [facility] WBC (Bld) [#/Vol] 9.8 10*3/uL 3.6 - 10.7 10*3/uL [facility] Laboratory - Chemistry and C hemistry - challengeon 01-28-2025 Glucose [Mass/Vol] 127 mg/dL High 70 - 100 mg/dL [facility] Magnesium [Mass/Vol] 2 mg/dL 1.6 - 2 .6 mg/dL [facility] Laboratory - Coagulationon 0 01-28-2025 PT Coag (Bld) [Time] 21.9 s High 9.0 - 12.0 s [facility] MAGNESIUMon 01-28-2025 Magnesium [Mass/Vol] 2.0 mg/dL Normal 1.6-2.6 [facility] Comment on above: Result Comment: ARPAN R COMMENTS:Higher values can be expected in females during menses. Performed By: #### L AB15, [id number], [id number] ####Farm Contractor: DOMENICA JARA ([phone])[facility])[address] [place] [address] Magnesium [Mass/Vol]on 01-28 Interpretation and review of laboratory results Normal [facility] No Panel Informationon 01-28 Interpretation and review of laboratory results Abnormal [facility] Interpretation and review of laboratory results Abnormal [facility] Nursing Noteon 01-28-2025 Nursing Note Report called to Ana Laura in [facility] Normal [facility] Nursing Note Normal [facility] Nursing Note Patient in envella bed. Wound vac to buttocks. Assisted patient to chair with heavy assist of 2. Will myron back. Call light in reach Normal [facility] PHOSPHORUSon 01-28-2025 Phosphate [Mass/Vol] 4.9 mg/dL High 2.3-4.7 [facility] Comment on above: Performed By: #### L AB15, [id number], [id number] ####Farm Contractor: DOMENICA JARA ([phone])[facility] ([facility])[address] [place] [address] PROTHROMBIN TIMEon INR Coag (PPP) [Relative time] 2.2 {INR} High 0.9-1.1 [facility] Comment on above: Result Comment: Vaughn mmended Anticoagulant Therapy: SEE BELOW----- INR of 2.0 - 3.0 : - Prophylaxis of Venous Thrombosis (high-risk surgery) - Treatment of Venous Thrombosis - Treatment of Pulmonary Embolism (Includes tissue heart valves, Acute Myocardial Infarction to prevent systemic embolism, Valvular Heart Disease, and Atrial Fibrillation)----- INR of 2.5 - 3.5 : - Mechanical Prosthetic Valves (high risk) - If oral anticoagulant therapy is used to prevent Myocardial Infarction Performed By: #### L AB325, [id number] ####Farm Contractor: DOMENICA JARA ([id number])[facility] ([facility] [place] [address] PT Coag (PPP) [Time] 21.9 s High 9.0-12.0 [facility] Comment on above: Performed By: #### L AB325, [id number] ####Farm Contractor: DOMENICA JARA ([id number])[facility] ([facility])[address] [place] [address] PT Coag (Bld) [Time]on 01-28 INR Coag (PPP) [Relative time] 2.2 {INR} High 0.9 - 1.1 [facility] Phosphate [Moles/Vol]on Interpretation and review of laboratory results Abnormal [facility] Phosphate [Mass/Vol] 4.9 mg/dL High 2.3 - 4 .7 mg/dL [facility] Progress Noteon 01-28-2025 Progress Note Normal [facility] Progress Note Normal [facility] Progress Note Normal [facility] aPTT Coag (Bld) [Time]on aPTT Coag (PPP) [Time] 49 s High 20.0 - 30.5 s [facility] Interpretation and review of laboratory results Abnormal [facility] aPTT Coag (PPP) [Time] 46.3 s High 20.0 - 30.5 s [facility] 30on 01-27-2025 30 Normal [facility] APTTon 01-27-2025 aPTT Coag (Bld) [Time] 47.9 s High 20.0-30.5 [facility] Comment on above: Result Comment: ARPAN Kaplan COMMENTS:NOTE: The therapeutic time for Heparin anticoagulation, based on Xa activity inhibition, is an APTT of 46-80 seconds. Performed By: #### L AB325 ####Farm Contractor: DOMENICA JARA ([phone])[facility])[address] [place] [address] aPTT Coag (Bld) [Time] 49.6 s High 20.0-30.5 [facility] Comment on above: Result Comment: ARPAN Kaplan COMMENTS:NOTE: The therapeutic time for Heparin anticoagulation, based on Xa activity inhibition, is an APTT of 46-80 seconds. Performed By: #### L AB325 ####Farm Contractor: DOMENICA JARA ([phone])[facility])[address] [place] [address] aPTT Coag (Bld) [Time] 45.0 s High 20.0-30.5 [facility] Comment on above: Result Comment: ARPAN Kaplan COMMENTS:NOTE: The therapeutic time for Heparin anticoagulation, based on Xa activity inhibition, is an APTT of 46-80 seconds. Performed By: #### L AB325 ####Farm Contractor: DOMENICA JARA ([phone])[facility])[address] [place] [address] aPTT Coag (Bld) [Time] 40.2 s High 20.0-30.5 [facility] Comment on above: Result Comment: ARPAN Kaplan COMMENTS:NOTE: The therapeutic time for Heparin anticoagulation, based on Xa activity inhibition, is an APTT of 46-80 seconds. Performed By: #### L AB320, [id number] ####Farm Contractor: DOMENICA JARA ([phone])[facility] ([facility])[address] [place] [address] BASIC METABOLIC PANELon 05-0 Anion gap [Moles/Vol] 17 mmol/L High 3-13 [facility] Comment on above: Performed By: #### L AB15, PNP274, [id number] ####Farm Contractor: DOMENICA JARA ([id number])[facility])[address] [place] [address] Calcium [Mass/Vol] 9.9 mg/dL Normal 8.4-10.2 [facility] Comment on above: Performed By: #### L AB15, [id number], [id number] ####Farm Contractor: DOMENICA JARA ([id number])[facility] ([facility] [place] [address] [place] Chloride [Moles/Vol] 99 mmol/L Normal 98-107 [facility] Comment on above: Performed By: #### L AB15, [id number], [id number] ####Farm Contractor: DOMENICA JARA ([phone])[facility] ([facility])[address] [place] [address] CO2 [Moles/Vol] 23 mmol/L Normal 22-29 [facility] Comment on above: Performed By: #### L AB15, VNA138, [id number] ####Farm Contractor: DOMENICA JARA ([phone])[facility] ([facility])[address] [place] [address] Creatinine [Mass/Vol] 2.27 mg/dL High 0.72-1.25 [facility] Comment on above: Performed By: #### L AB15, VLD508, EZX935 ####Farm Contractor: DOMENICA JARA ([id number])[facility] ([facility])[address] [place] [address] GLOMERULAR FILTRATION RATE ML/MIN/1.73 SQ M.PREDICTED 32.4 mL/min/1.73m*2 Low >60.0 [facility] Comment on above: Result Comment: Calc ulation based on the Chronic Kidney Disease Epidemiology Collaboration (CKD-EPI) equation refit without adjustment for race Performed By: #### L AB15, [id number], [id number] ####Farm Contractor: DOMENICA JARA ([id number])[facility] ([facility])[address] [place] [address] [place] Glucose [Mass/Vol] 115 mg/dL High 74-100 [facility] Comment on above: Performed By: #### L AB15, GEC025, ANU360 ####Farm Contractor: DOMENICA JARA ([id number])[facility])[address] [place] [address] [place] Potassium [Moles/Vol] 3.9 mmol/L Normal 3.5-5.1 [facility] Comment on above: Result Comment: [facility] potassium values may be up to 0.5 mmol/L lower than serum values. Performed By: #### L AB15, [id number], [id number] ####Farm Contractor: DOMENICA JARA ([phone])[facility] ([facility])[address] [place] [address] Sodium [Moles/Vol] 139 mmol/L Normal 136-145 [facility] Comment on above: Performed By: #### L AB15, [id number], [id number] ####Farm Contractor: DOMENICA JARA ([id number])[facility] ([facility])[address] [place] [address] Urea nitrogen [Mass/Vol] 9 mg/dL Normal 9-23 [facility] Comment on above: Performed By: #### L AB15, TRQ154, [id number] ####Farm Contractor: DOMENICA JARA ([phone])[facility] ([facility])[address] [place] [address] Basic metabolic 1998 panelon 01-27-2025 Anion gap [Moles/Vol] 17 mmol/L High 3 - 13 mmol/L [facility] Calcium [Mass/Vol] 9.9 mg/dL 8.4 - 10. 2 mg/dL [facility] Chloride [Moles/Vol] 99 mmol/L 98 - 10 7 mmol/L [facility] CO2 [Moles/Vol] 23 mmol/L 22 - 29 mmol/L [facility] Creatinine [Mass/Vol] 2.27 mg/dL High 0.72 - 1.25 mg/dL [facility] GFR/1.73 sq M.predicted (S/P/Bld) [Vol rate/Area] 32.4 mL/min Low - PINF [facility] Glucose [Mass/Vol] 115 mg/dL High 74 - 100 mg/dL [facility] Interpretation and review of laboratory results Abnormal [facility] Potassium [Moles/Vol] 3.9 mmol/L 3.5 - 5.1 mmol/L [facility] Sodium [Moles/Vol] 139 mmol/L 136 - 145 mmol/L [facility] Urea nitrogen [Mass/Vol] 9 mg/dL 9 - 23 mg/d L [facility] CBC (HEMOGRAM)on 01-27-2025 Erythrocyte distribution width (RBC) [Ratio] 19.1 % High 11.5-15.0 [facility] Comment on above: Performed By: #### L AB294 ####Farm Contractor: DOMENICA JARA ([id number])[facility])[address] [place] [address] Hematocrit (Bld) [Volume fraction] 28.3 % Low 40.0-52.0 [facility] Comment on above: Performed By: #### L AB294 ####Farm Contractor: DOMENICA JARA ([phone])[facility])[address] [place] [address] Hemoglobin (Bld) [Mass/Vol] 9.0 g/dL Low 13.0-18.0 [facility] Comment on above: Performed By: #### L AB294 ####Farm Contractor: DOMENICA JARA ([phone])[facility] ([facility])[address] [place] [address] MCH (RBC) [Entitic mass] 27.6 pg Normal 26.0-34.0 [facility] Comment on above: Performed By: #### L AB294 ####Farm Contractor: DOMENICA JARA ([phone])[facility])[address] [place] [address] MCHC 31.8 % Normal 30.5-36.0 [facility] Comment on above: Performed By: #### L AB294 ####Farm Contractor: DOMENICA JARA ([id number])[facility])[address] [place] [address] MCV (RBC) [Entitic vol] 86.8 fL Normal 77.0-99.0 [facility] Comment on above: Performed By: #### L AB294 ####Farm Contractor: DOMENICA JARA ([id number])[facility])[address] [place] [address] Platelet mean volume (Bld) [Entitic vol] 8.7 fL Low 9.0-12.7 [facility] Comment on above: Performed By: #### L AB294 ####Farm Contractor: DOMENICA JARA ([id number])[facility] ([facility])[address] [place] [address] Platelets (Bld) [#/Vol] 273 10*3/uL Normal 140-440 [facility] Comment on above: Performed By: #### L AB294 ####Farm Contractor: DOMENICA JARA ([phone])[facility] ([facility])[address] [place] [address] RBC (Bld) [#/Vol] 3.26 10*6/uL Low 4.40-5.90 [facility] Comment on above: Performed By: #### L AB294 ####Farm Contractor: DOMENICA JARA ([id number])[facility] ([facility])[address] [place] [address] WBC (Bld) [#/Vol] 10.0 10*3/uL Normal 3.6-10.7 [facility] Comment on above: Performed By: #### L AB294 ####Farm Contractor: DOMENICA JARA ([phone])[facility] ([facility])[address] [place] [address] CBC panel Auto (Bld)on 01-27 Erythrocyte distribution width (RBC) [Ratio] 19.1 % High 11.5 - 15.0 % [facility] Hematocrit (Bld) [Volume fraction] 28.3 % Low 40.0 - 52.0 % [facility] Hemoglobin (Bld) [Mass/Vol] 9 g/dL Low 13.0 - 18.0 g/dL [facility] Interpretation and review of laboratory results Abnormal [facility] MCH (RBC) [Entitic mass] 27.6 pg 26. 0 - 34.0 pg [facility] MCHC (RBC) [Mass/Vol] 31.8 % 30.5 - 36.0 % [facility] MCV (RBC) [Entitic vol] 86.8 fL 77.0 - 99.0 fL [facility] Platelet mean volume (Bld) [Entitic vol] 8.7 fL Low 9.0 - 12.7 fL [facility] Platelets (Bld) [#/Vol] 273 10*3/uL 140 - 440 10*3/uL [facility] RBC (Bld) [#/Vol] 3.26 10*6/uL Low 4.40 - 5.9 0 10*6/uL [facility] WBC (Bld) [#/Vol] 10 10*3/uL 3.6 - 10.7 10*3/uL [facility] HEMOGLOBIN AND HEMATOCRIT, B LOODon 01-27-2025 Hematocrit (Bld) [Volume fraction] 26.3 % Low 40.0-52.0 [facility] Comment on above: Performed By: #### L AB753 ####Farm Contractor: DOMENICA JARA ([phone])[facility] ([facility])[address] [place] [address] Hemoglobin (Bld) [Mass/Vol] 8.4 g/dL Low 13.0-18.0 [facility] Comment on above: Performed By: #### L AB753 ####Farm Contractor: DOMENICA JARA ([id number])[facility] ([address] Hemoglobin (Bld) [Mass/Vol]o n 01-27-2025 Hematocrit (Bld) [Volume fraction] 26.3 % Low 40.0 - 52.0 % [facility] Interpretation and review of laboratory results Abnormal [facility] Laboratory - Chemistry and C hemistry - challengeon 01-27-2025 Glucose [Mass/Vol] 102 mg/dL High 70 - 100 mg/dL [facility] Glucose [Mass/Vol] 127 mg/dL High 70 - 100 mg/dL [facility] Glucose [Mass/Vol] 87 mg/dL 70 - 100 mg/dL [facility] Magnesium [Mass/Vol] 1.9 mg/dL 1.6 - 2 .6 mg/dL [facility] Laboratory - Coagulationon 0 01-27-2025 PT Coag (Bld) [Time] 19.9 s High 9.0 - 12.0 s [facility] - Hematology and Cell countson 01-27-2025 Hemoglobin (Bld) [Mass/Vol] 8.4 g/dL Low 13.0 - 18.0 g/dL [facility] MAGNESIUMon 01-27-2025 Magnesium [Mass/Vol] 1.9 mg/dL Normal 1.6-2.6 [facility] Comment on above: Result Comment: ARPAN R COMMENTS:Higher values can be expected in females during menses. Performed By: #### L AB15, [id number], SFL657 ####Farm Contractor: DOMENICA JARA ([phone])[facility])[address] [place] [address] Magnesium [Mass/Vol]on 01-27 [facility] No Panel Informationon 01-27 Interpretation and review of laboratory results Abnormal [facility] Interpretation and review of laboratory results Abnormal [facility] Interpretation and review of laboratory results Normal [facility] Interpretation and review of laboratory results Abnormal [facility] Interpretation and review of laboratory results Normal [facility] Nursing Noteon 01-27-2025 Nursing Note Nurse to nurse report called to . Pt in for transport. Normal [facility] PHOSPHORUSon 01-27-2025 Phosphate [Mass/Vol] 3.4 mg/dL Normal 2.3-4.7 [facility] Comment on above: Performed By: #### L AB15, [id number], QNL350 ####Farm Contractor: DOMENICA JARA ([phone])[facility] ([facility])[address] [place] [address] PROTHROMBIN TIMEon INR Coag (PPP) [Relative time] 1.9 {INR} High 0.9-1.1 [facility] Comment on above: Result Comment: Vaughn mmended Anticoagulant Therapy: SEE BELOW----- INR of 2.0 - 3.0 : - Prophylaxis of Venous Thrombosis (high-risk surgery) - Treatment of Venous Thrombosis - Treatment of Pulmonary Embolism (Includes tissue heart valves, Acute Myocardial Infarction to prevent systemic embolism, Valvular Heart Disease, and Atrial Fibrillation)----- INR of 2.5 - 3.5 : - Mechanical Prosthetic Valves (high risk) - If oral anticoagulant therapy is used to prevent Myocardial Infarction Performed By: #### L AB320, [id number] ####Farm Contractor: DOMENICA JARA ([id number])[facility] ([facility] [place] [address] PT Coag (PPP) [Time] 19.9 s High 9.0-12.0 [facility] Comment on above: Performed By: #### L AB320, [id number] ####Farm Contractor: DOMENICA JARA ([id number])[facility] [place] [address] PT Coag (Bld) [Time]on 01-27 INR Coag (PPP) [Relative time] 1.9 {INR} High 0.9 - 1.1 [facility] Phosphate [Moles/Vol]on Phosphate [Mass/Vol] 3.4 mg/dL 2.3 - 4 .7 mg/dL [facility] Progress Noteon 01-27-2025 Progress Note Normal [facility] Progress Note Normal [facility] Progress [facility] Normal [facility] aPTT Coag (Bld) [Time]on aPTT Coag (PPP) [Time] 47.9 s High 20.0 - 30.5 s [facility] Interpretation and review of laboratory results Abnormal [facility] aPTT Coag (PPP) [Time] 49.6 s High 20.0 - 30.5 s [facility] Interpretation and review of laboratory results Abnormal [facility] aPTT Coag (PPP) [Time] 45 s High 20.0 - 30.5 s [facility] Interpretation and review of laboratory results Abnormal [facility] aPTT Coag (PPP) [Time] 40.2 s High 20.0 - 30.5 s [facility] 30on 01-26-2025 30 Normal [facility] [id number] 01-26-2025 [id number] Dialysis placed to [facility] via [facility] per TCC request. Normal [facility] [phone] Normal [facility] APTTon 01-26-2025 aPTT Coag (Bld) [Time] 41.6 s High 20.0-30.5 [facility] Comment on above: Result Comment: ARPAN Kaplan COMMENTS:NOTE: The therapeutic time for Heparin anticoagulation, based on Xa activity inhibition, is an APTT of 46-80 seconds. Performed By: #### L AB325 ####Farm Contractor: DOMENICA JARA ([phone])[address] aPTT Coag (Bld) [Time] s Critically high 20.0-30. 5 [facility] Comment on above: Result Comment: ARPAN Kaplan COMMENTS:NOTE: The therapeutic time for Heparin anticoagulation, based on Xa activity inhibition, is an APTT of 46-80 seconds. Performed By: #### L AB325 ####Farm Contractor: DOMENICA JARA ([phone])[address] aPTT Coag (Bld) [Time] 47.0 s High 20.0-30.5 [facility] Comment on above: Result Comment: ARPAN Kaplan COMMENTS:NOTE: The therapeutic time for Heparin anticoagulation, based on Xa activity inhibition, is an APTT of 46-80 seconds. Performed By: #### L AB320, [id number] ####Farm Contractor: DOMENICA JARA ([phone])[facility] ([facility])[address] [place] [address] BASIC METABOLIC PANELon 0 Anion gap [Moles/Vol] 16 mmol/L High 3-13 [facility] Comment on above: Performed By: #### L AB103, [id number], LAB15 ####Farm Contractor: DOMENICA JARA ([id number])[facility])[address] [place] [address] Calcium [Mass/Vol] 9.0 mg/dL Normal 8.4-10.2 [facility] Comment on above: Performed By: #### L AB103, [id number], LAB15 ####Farm Contractor: DOMENICA JARA ([phone])[facility])[address] [place] [address] Chloride [Moles/Vol] 100 mmol/L Normal 98-107 [facility] Comment on above: Performed By: #### L AB103, [id number], LAB15 ####Farm Contractor: DOMENICA JARA ([id number])[facility])[address] [place] [address] CO2 [Moles/Vol] 20 mmol/L Low 22-29 [facility] Comment on above: Performed By: #### L AB103, TDQ619, LAB15 ####Farm Contractor: DOMENICA JARA ([id number])[facility])[address] [place] [address] Creatinine [Mass/Vol] 3.37 mg/dL High 0.72-1.25 [facility] Comment on above: Performed By: #### L AB103, OSF001, LAB15 ####Farm Contractor: DOMENICA JARA ([phone])[facility])[address] [place] [address] GLOMERULAR FILTRATION RATE ML/MIN/1.73 SQ M.PREDICTED 20.2 mL/min/1.73m*2 Low >60.0 [facility] Comment on above: Result Comment: Calc ulation based on the Chronic Kidney Disease Epidemiology Collaboration (CKD-EPI) equation refit without adjustment for race Performed By: #### L AB103, ARC505, LAB15 ####Farm Contractor: DOMENICA JARA ([phone])[facility] ([facility])[address] [place] [address] Glucose [Mass/Vol] 75 mg/dL Normal 74-100 [facility] Comment on above: Performed By: #### L AB103, [id number], LAB15 ####Farm Contractor: DOMENICA JARA ([phone])[facility])[address] [place] [address] [place] Potassium [Moles/Vol] 5.1 mmol/L Normal 3.5-5.1 [facility] Comment on above: Result Comment: TCSi gnificant interference from hemolysis. Result integrity compromised. Interpret with caution. Performed By: #### L AB103, WGU259, LAB15 ####Farm Contractor: DOMENICA JARA ([phone])[facility] ([facility])[address] [place] [address] Sodium [Moles/Vol] 136 mmol/L Normal 136-145 [facility] Comment on above: Performed By: #### L AB103, [id number], LAB15 ####Farm Contractor: DOMENICA JARA ([id number])[facility])[address] [place] [address] Urea nitrogen [Mass/Vol] 19 mg/dL Normal 9-23 [facility] Comment on above: Performed By: #### L AB103, [id number], LAB15 ####Farm Contractor: DOMENICA JARA ([id number])[facility] ([facility])[address] [place] [address] Basic metabolic 1998 panelon 01-26-2025 Anion gap [Moles/Vol] 16 mmol/L High 3 - 13 mmol/L [facility] Calcium [Mass/Vol] 9 mg/dL 8.4 - 10. 2 mg/dL [facility] Chloride [Moles/Vol] 100 mmol/L 98 - 10 7 mmol/L [facility] CO2 [Moles/Vol] 20 mmol/L Low 22 - 29 mmol/L [facility] Creatinine [Mass/Vol] 3.37 mg/dL High 0.72 - 1.25 mg/dL [facility] GFR/1.73 sq M.predicted (S/P/Bld) [Vol rate/Area] 20.2 mL/min Low - PINF [facility] Glucose [Mass/Vol] 75 mg/dL 74 - 100 mg/dL [facility] Interpretation and review of laboratory results Abnormal [facility] Potassium [Moles/Vol] 5.1 mmol/L 3.5 - 5.1 mmol/L [facility] Sodium [Moles/Vol] 136 mmol/L 136 - 145 mmol/L [facility] Urea nitrogen [Mass/Vol] 19 mg/dL 9 - 23 mg/d L [facility] CBC (HEMOGRAM)on 01-26-2025 Erythrocyte distribution width (RBC) [Ratio] 19.3 % High 11.5-15.0 [facility] Comment on above: Performed By: #### L AB294 ####Farm Contractor: DOMENICA JARA ([phone])[facility])[address] [place] [address] Hematocrit (Bld) [Volume fraction] 21.0 % Low 40.0-52.0 [facility] Comment on above: Performed By: #### L AB294 ####Farm Contractor: DOMENICA JARA ([id number])[facility])[address] [place] [address] Hemoglobin (Bld) [Mass/Vol] 6.7 g/dL Critically low 13.0-18.0 [facility] Comment on above: Performed By: #### L AB294 ####Farm Contractor: DOMENICA JARA ([id number])[facility] ([facility])[address] [place] [address] MCH (RBC) [Entitic mass] 27.8 pg Normal 26.0-34.0 [facility] Comment on above: Performed By: #### L AB294 ####Farm Contractor: DOMENICA JARA ([id number])[facility])[address] [place] [address] MCHC 31.9 % Normal 30.5-36.0 [facility] Comment on above: Performed By: #### L AB294 ####Farm Contractor: DOMENICA JARA ([id number])[facility])[address] [place] [address] MCV (RBC) [Entitic vol] 87.1 fL Normal 77.0-99.0 [facility] Comment on above: Performed By: #### L AB294 ####Farm Contractor: DOMENICA JARA ([phone])[facility])[address] [place] [address] Platelet mean volume (Bld) [Entitic vol] 10.0 fL Normal 9.0-12.7 [facility] Comment on above: Performed By: #### L AB294 ####Farm Contractor: DOMENICA JARA ([id number])[facility] ([facility])[address] [place] [address] Platelets (Bld) [#/Vol] 265 10*3/uL Normal 140-440 [facility] Comment on above: Performed By: #### L AB294 ####Farm Contractor: DOMENICA JARA ([id number])[facility] ([facility])[address] [place] [address] RBC (Bld) [#/Vol] 2.41 10*6/uL Low 4.40-5.90 [facility] Comment on above: Performed By: #### L AB294 ####Farm Contractor: DOMENICA JARA ([phone])[facility] ([facility])[address] [place] [address] WBC (Bld) [#/Vol] 8.7 10*3/uL Normal 3.6-10.7 [facility] Comment on above: Performed By: #### L AB294 ####Farm Contractor: DOMENICA JARA ([id number])[facility])[address] [place] [address] CBC panel Auto (Bld)Ordered By: Brandy Ross on 01-26-2025 Erythrocyte distribution width (RBC) [Ratio] 19.3 % High 11.5 - 15.0 % [facility] Hematocrit (Bld) [Volume fraction] 21 % Low 40.0 - 52.0 % [facility] Hemoglobin (Bld) [Mass/Vol] 6.7 g/dL Critically low 13.0 - 18.0 g/dL [facility] Interpretation and review of laboratory results Abnormal [facility] MCH (RBC) [Entitic mass] 27.8 pg 26. 0 - 34.0 pg [facility] MCHC (RBC) [Mass/Vol] 31.9 % 30.5 - 36.0 % [facility] MCV (RBC) [Entitic vol] 87.1 fL 77.0 - 99.0 fL [facility] [facility] mean volume (Bld) [Entitic vol] 10 fL 9.0 - 12.7 fL [facility] Platelets (Bld) [#/Vol] 265 10*3/uL 140 - 440 10*3/uL [facility] RBC (Bld) [#/Vol] 2.41 10*6/uL Low 4.40 - 5.9 0 10*6/uL [facility] WBC (Bld) [#/Vol] 8.7 10*3/uL 3.6 - 10.7 10*3/uL [facility] HBV surface Ab IA Qnon 01-26 [facility] HBV surface Ag IA Qlon 01-26 Interpretation and review of laboratory results Normal [facility] HEMOGLOBIN AND HEMATOCRIT, B LOODon 01-26-2025 Hematocrit (Bld) [Volume fraction] 27.9 % Low 40.0-52.0 [facility] Comment on above: Performed By: #### L [id number] ####Farm Contractor: DOMENICA JARA ([phone])[facility])[address] [place] [address] [place] Hemoglobin (Bld) [Mass/Vol] 9.0 g/dL Low 13.0-18.0 [facility] Comment on above: Performed By: #### L AB753 ####Farm Contractor: DOMENICA JARA ([id number])[address] Hematocrit (Bld) [Volume fraction] 28.4 % Low 40.0-52.0 [facility] Comment on above: Performed By: #### L AB753 ####Farm Contractor: DOMENICA JARA ([id number])[facility])[address] [place] [address] [place] Hemoglobin (Bld) [Mass/Vol] 8.9 g/dL Low 13.0-18.0 [facility] Comment on above: Performed By: #### L AB753 ####Farm Contractor: DOMENICA [id number])[facility])[address] [place] [address] HEPATITIS B SURFACE ANTIBODY on 01-26-2025 HEPATITIS B VIRUS SURFACE AB <8.0 Normal [facility] Comment on above: Result Comment: ARPAN R COMMENTS:Interpretation:<8.0 Non-Reactive8.0-11.9 Equivocal>= 12.0 Ab DetectedNote: If an equivocal result is interpreted, an antibody status is unable to be determined. Collect new specimen if clinically indicated. Performed By: #### L AB472, [id number] ####Farm Contractor: DOMENICA JARA ([phone])[facility] [place] [address] HEPATITIS B SURFACE ANTIGENo n 01-26-2025 HEPATITIS B VIRUS SURFACE AG Not detected Normal Not Detected [facility] Comment on above: Performed By: #### L AB472, [id number] ####Farm Contractor: DOMENICA JARA ([id number])[facility] [place] [address] Hemoglobin (Bld) [Mass/Vol]o n 01-26-2025 Hematocrit (Bld) [Volume fraction] 27.9 % Low 40.0 - 52.0 % [facility] Interpretation and review of laboratory results Abnormal [facility] Hematocrit (Bld) [Volume fraction] 28.4 % Low 40.0 - 52.0 % [facility] Interpretation and review of laboratory results Abnormal [facility] Laboratory - Chemistry and C hemistry - challengeon 01-26-2025 Magnesium [Mass/Vol] 2 mg/dL 1.6 - 2 .6 mg/dL [facility] Laboratory - Coagulationon 0 01-26-2025 PT Coag (Bld) [Time] 18.3 s High 9.0 - 12.0 s [facility] - Hematology and Cell countson 01-26-2025 Hemoglobin (Bld) [Mass/Vol] 9 g/dL Low 13.0 - 18.0 g/dL [facility] Hemoglobin (Bld) [Mass/Vol] 8.9 g/dL Low 13.0 - 18.0 g/dL [facility] Laboratory - Microbiology an d Antimicrobial susceptibilityon 01-26-2025 HBV surface Ab IA Qn mIU/mL [facility] HBV surface Ag IA Ql Not detected Not Detected [facility] MAGNESIUMon 01-26-2025 Magnesium [Mass/Vol] 2.0 mg/dL Normal 1.6-2.6 [facility] Comment on above: Result Comment: ARPAN R COMMENTS:Higher values can be expected in females during menses. Performed By: #### L AB103, APS123, LAB15 ####Farm Contractor: DOMENICA JARA ([id number])[facility] ([facility])[address] [place] [address] Magnesium [Mass/Vol]on 01-26 Interpretation and review of laboratory results Normal [facility] No Panel Informationon 01-26 [facility] Blood Expiration Date [id number] S [facility] Crossmatch interpretation COMP [facility] Dispense Status Transfused [facility] Product Blood Type 9500 [facility] PRODUCT CODE [id number] [facility] Unit ABO O [facility] Unit Number [id number] [facility] alth Unit RH Negative [facility] Unit Volume 300 mL [facility] Interpretation and review of laboratory results Abnormal [facility] Nursing Noteon 01-26-2025 Nursing Note Normal [facility] Nursing Note APTT >139, resident notified. Normal [facility] PHOSPHORUSon 01-26-2025 Phosphate [Mass/Vol] 5.3 mg/dL High 2.3-4.7 [facility] Comment on above: Result Comment: TCPo tential interference from hemolysis Performed By: #### L AB103, [id number], LAB15 ####Farm Contractor: DOMENICA JARA ([id number])[facility] ([facility])[address] [place] [address] PROTHROMBIN TIMEon INR Coag (PPP) [Relative time] 1.8 {INR} High 0.9-1.1 [facility] Comment on above: Result Comment: Vaughn mmended Anticoagulant Therapy: SEE BELOW----- INR of 2.0 - 3.0 : - Prophylaxis of Venous Thrombosis (high-risk surgery) - Treatment of Venous Thrombosis - Treatment of Pulmonary Embolism (Includes tissue heart valves, Acute Myocardial Infarction to prevent systemic embolism, Valvular Heart Disease, and Atrial Fibrillation)----- INR of 2.5 - 3.5 : - Mechanical Prosthetic Valves (high risk) - If oral anticoagulant therapy is used to prevent Myocardial Infarction Performed By: #### L AB320, [id number] ####Farm Contractor: DOMENICA JARA ([id number])[facility] ([facility])[address] [place] [address] PT Coag (PPP) [Time] 18.3 s High 9.0-12.0 [facility] Comment on above: Performed By: #### L AB320, [id number] ####Farm Contractor: DOMENICA JARA ([id number])[facility] ([facility])[address] [place] [address] PT Coag (Bld) [Time]on 01-26 INR Coag (PPP) [Relative time] 1.8 {INR} High 0.9 - 1.1 [facility] Phosphate [Moles/Vol]on Interpretation and review of laboratory results Abnormal [facility] Phosphate [Mass/Vol] 5.3 mg/dL High 2.3 - 4 .7 mg/dL [facility] Progress Noteon 01-26-2025 Progress Note PHYSICAL THERAPY [facility] Name/MRN: Jair Snyder ([id number]) Date: 01/26/2025 Attempt Note Pt on iHD. Will re-attempt as able. Chantal Sucaldito, PT Normal [facility] Progress Note Normal [facility] Progress Note Speech-Language Pathology Pt is a hold at this time, as he is receiving dialysis. Will re-attempt next date as schedule permits. Treva Mccallum, MS. 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 Normal [facility] Progress Note Normal [facility] Progress [facility] Normal [facility] Progress [facility] Normal [facility] Progress Note Normal [facility] Progress Note Normal [facility] aPTT Coag (Bld) [Time]on aPTT Coag (PPP) [Time] 41.6 s High 20.0 - 30.5 s [facility] Interpretation and review of laboratory results Abnormal [facility] aPTT Coag (PPP) [Time] 47 s High 20.0 - 30.5 s [facility] aPTT Coag (Bld) [Time]Ordere d By: Alan Santos on 01-26-2025 aPTT Coag (PPP) [Time] s Critically high 20.0 - 3 0.5 s [facility] Interpretation and review of laboratory results Abnormal [facility] 30on 01-25-2025 30 Normal [facility] 30 Normal [facility] [id number] 01-25-2025 [id number] Normal [facility] [id number] OPAT placed to [facility] via [employer] per TCC request. Normal [facility] [phone] Normal [facility] APTTon 01-25-2025 aPTT Coag (Bld) [Time] s Critically high 20.0-30. 5 [facility] Comment on above: Result Comment: ARPAN Kaplan COMMENTS:NOTE: The therapeutic time for Heparin anticoagulation, based on Xa activity inhibition, is an APTT of 46-80 seconds. Performed By: #### L AB325 ####Farm Contractor: DOMENICA JARA ([phone])[address] aPTT Coag (Bld) [Time] 83.1 s High 20.0-30.5 [facility] Comment on above: Result Comment: ARPAN Kaplan COMMENTS:NOTE: The therapeutic time for Heparin anticoagulation, based on Xa activity inhibition, is an APTT of 46-80 seconds. Performed By: #### L AB325, [id number] ####Farm Contractor: DOMENICA JARA ([id number])[address] BASIC METABOLIC PANELon 05-0 Anion gap [Moles/Vol] 16 mmol/L High 3-13 [facility] Comment on above: Performed By: #### L AB103, LAB15, [id number] ####Farm Contractor: DOMENICA JARA ([id number])[facility])[address] [place] [address] [place] Calcium [Mass/Vol] 10.1 mg/dL Normal 8.4-10.2 [facility] Comment on above: Performed By: #### L AB103, LAB15, [id number] ####Farm Contractor: DOMENICA JARA ([id number])[facility] ([facility])[address] [place] [address] [place] Chloride [Moles/Vol] 98 mmol/L Normal 98-107 [facility] Comment on above: Performed By: #### L AB103, LAB15, [id number] ####Farm Contractor: DOMENICA JARA ([id number])[facility])[address] [place] [address] CO2 [Moles/Vol] 24 mmol/L Normal 22-29 [facility] Comment on above: Performed By: #### Tameka AB103, LAB15, AWY325 ####Farm Contractor: DOMENICA JARA ([id number])[facility])[address] [place] [address] [place] Creatinine [Mass/Vol] 2.54 mg/dL High 0.72-1.25 [facility] Comment on above: Performed By: #### L AB103, LAB15, [id number] ####Farm Contractor: DOMENICA JARA ([id number])[facility] ([facility])[address] [place] [address] [place] GLOMERULAR FILTRATION RATE ML/MIN/1.73 SQ M.PREDICTED 28.3 mL/min/1.73m*2 Low >60.0 [facility] Comment on above: Result Comment: Calc ulation based on the Chronic Kidney Disease Epidemiology Collaboration (CKD-EPI) equation refit without adjustment for race Performed By: #### L AB103, LAB15, RUS700 ####Farm Contractor: DOMENICA JARA ([id number])[facility])[address] [place] [address] [place] Glucose [Mass/Vol] 74 mg/dL Normal 74-100 [facility] Comment on above: Performed By: #### L AB103, LAB15, [id number] ####Farm Contractor: DOMENICA JARA ([id number])[facility])[address] [place] [address] Potassium [Moles/Vol] 3.9 mmol/L Normal 3.5-5.1 [facility] Comment on above: Result Comment: [facility] potassium values may be up to 0.5 mmol/L lower than serum values. Performed By: #### L AB103, LAB15, [id number] ####Farm Contractor: DOMENICA JARA ([id number])[facility] ([facility])[address] [place] [address] Sodium [Moles/Vol] 138 mmol/L Normal 136-145 [facility] Comment on above: Performed By: #### L AB103, LAB15, [id number] ####Farm Contractor: DOMENICA JARA ([id number])[facility])[address] [place] [address] Urea nitrogen [Mass/Vol] 15 mg/dL Normal 9-23 [facility] Comment on above: Performed By: #### L AB103, LAB15, QQI130 ####Farm Contractor: DOMENICA JARA ([id number])[facility])[address] [place] [address] BLOOD TYPE AND SCREEN GELon 01-25-2025 ABO GROUPING O Normal [facility] Comment on above: Performed By: #### L AB276 ####Farm Contractor: DOMENICA JARA ([id number])[facility] ([facility])[address] [place] [address] RH TYPE IN BLOOD Negative Normal [facility] Comment on above: Performed By: #### L AB276 ####Farm Contractor: DOMENICA JARA ([id number])[facility] ([facility])[address] [place] [address] Basic metabolic 1998 panelon 01-25-2025 Anion gap [Moles/Vol] 16 mmol/L High 3 - 13 mmol/L [facility] Calcium [Mass/Vol] 10.1 mg/dL 8.4 - 10. 2 mg/dL [facility] Chloride [Moles/Vol] 98 mmol/L 98 - 10 7 mmol/L [facility] CO2 [Moles/Vol] 24 mmol/L 22 - 29 mmol/L [facility] Creatinine [Mass/Vol] 2.54 mg/dL High 0.72 - 1.25 mg/dL [facility] GFR/1.73 sq M.predicted (S/P/Bld) [Vol rate/Area] 28.3 mL/min Low - PINF [facility] Glucose [Mass/Vol] 74 mg/dL 74 - 100 mg/dL [facility] Interpretation and review of laboratory results Abnormal [facility] Potassium [Moles/Vol] 3.9 mmol/L 3.5 - 5.1 mmol/L [facility] Sodium [Moles/Vol] 138 mmol/L 136 - 145 mmol/L [facility] Urea nitrogen [Mass/Vol] 15 mg/dL 9 - 23 mg/d L [facility] Blood type and Crossmatch pa freida (Bld)on 01-25-2025 ABO group Nom (Bld) O [facility] Blood group antibody screen GEL Ql Negative [facility] D Ag Ql (RBC) Negative [facility] CBC (HEMOGRAM)on 01-25-2025 Erythrocyte distribution width (RBC) [Ratio] 19.2 % High 11.5-15.0 [facility] Comment on above: Performed By: #### L AB294 ####Farm Contractor: DOMENICA [id number])[address] Hematocrit (Bld) [Volume fraction] 22.5 % Low 40.0-52.0 [facility] Comment on above: Performed By: #### L AB294 ####Farm Contractor: DOMENICA [id number])[address] Hemoglobin (Bld) [Mass/Vol] 7.0 g/dL Low 13.0-18.0 [facility] Comment on above: Performed By: #### L AB294 ####Farm Contractor: DOMENICA [id number])[facility] ([facility])[address] [place] [address] MCH (RBC) [Entitic mass] 27.6 pg Normal 26.0-34.0 [facility] Comment on above: Performed By: #### L AB294 ####Farm Contractor: DOMENICA JARA ([id number])[facility] ([facility])[address] [place] [address] MCHC 31.1 % Normal 30.5-36.0 [facility] Comment on above: Performed By: #### L AB294 ####Farm Contractor: DOMENICA JARA ([id number])[facility] ([facility])[address] [place] [address] MCV (RBC) [Entitic vol] 88.6 fL Normal 77.0-99.0 [facility] Comment on above: Performed By: #### L AB294 ####Farm Contractor: DOMENICA JARA ([id number])[facility] ([facility])[address] [place] [address] Platelet mean volume (Bld) [Entitic vol] 8.8 fL Low 9.0-12.7 [facility] Comment on above: Performed By: #### L AB294 ####Farm Contractor: DOMENICA JARA ([id number])[facility] ([facility])[address] [place] [address] Platelets (Bld) [#/Vol] 285 10*3/uL Normal 140-440 [facility] Comment on above: Performed By: #### L AB294 ####Farm Contractor: DOMENICA JARA ([id number])[facility] ([facility])[address] [place] [address] RBC (Bld) [#/Vol] 2.54 10*6/uL Low 4.40-5.90 [facility] Comment on above: Performed By: #### L AB294 ####Farm Contractor: DOMENICA JARA ([id number])[facility] ([facility])[address] [place] [address] WBC (Bld) [#/Vol] 10.2 10*3/uL Normal 3.6-10.7 [facility] Comment on above: Performed By: #### L AB294 ####Farm Contractor: DOMENICA JARA ([id number])[facility] [place] [address] CBC panel Auto (Bld)on 01-25 Erythrocyte distribution width (RBC) [Ratio] 19.2 % High 11.5 - 15.0 % [facility] Hematocrit (Bld) [Volume fraction] 22.5 % Low 40.0 - 52.0 % [facility] Hemoglobin (Bld) [Mass/Vol] 7 g/dL Low 13.0 - 18.0 g/dL [facility] Interpretation and review of laboratory results Abnormal [facility] MCH (RBC) [Entitic mass] 27.6 pg 26. 0 - 34.0 pg [facility] MCHC (RBC) [Mass/Vol] 31.1 % 30.5 - 36.0 % [facility] MCV (RBC) [Entitic vol] 88.6 fL 77.0 - 99.0 fL [facility] Platelet mean volume (Bld) [Entitic vol] 8.8 fL Low 9.0 - 12.7 fL [facility] Platelets (Bld) [#/Vol] 285 10*3/uL 140 - 440 10*3/uL [facility] RBC (Bld) [#/Vol] 2.54 10*6/uL Low 4.40 - 5.9 0 10*6/uL [facility] WBC (Bld) [#/Vol] 10.2 10*3/uL 3.6 - 10.7 10*3/uL [facility] [place] MODIFIED BARIUM WITH VIDE O AND SPEECHon 01-25-2025 [place] MODIFIED BARIUM WITH VIDEO AND SPEECH Normal [facility] HEMOGLOBIN AND HEMATOCRIT, B LOODon 01-25-2025 Hematocrit (Bld) [Volume fraction] 23.8 % Low 40.0-52.0 [facility] Comment on above: Performed By: #### L AB753 ####Farm Contractor: DOMENICA JARA ([id number])[facility] [place] [address] Hemoglobin (Bld) [Mass/Vol] 7.6 g/dL Low 13.0-18.0 [facility] Comment on above: Performed By: #### L AB753 ####Farm Contractor: DOMENICA JARA ([id number])[facility] ([facility])[address] [place] [address] Hematocrit (Bld) [Volume fraction] 24.4 % Low 40.0-52.0 [facility] Comment on above: Performed By: #### L AB753 ####Farm Contractor: DOMENICA JARA ([id number])[facility])[address] [place] [address] Hemoglobin (Bld) [Mass/Vol] 7.7 g/dL Low 13.0-18.0 [facility] Comment on above: Performed By: #### L AB753 ####Farm Contractor: DOMENICA JARA ([phone])[facility])[address] [place] [address] Hematocrit (Bld) [Volume fraction] 24.6 % Low 40.0-52.0 [facility] Comment on above: Performed By: #### L AB753 ####Farm Contractor: DOMENICA JARA ([id number])[facility])[address] [place] [address] Hemoglobin (Bld) [Mass/Vol] 8.0 g/dL Low 13.0-18.0 [facility] Comment on above: Performed By: #### L AB753 ####Farm Contractor: DOMENICA JARA ([id number])[facility])[address] [place] [address] [place] Hemoglobin (Bld) [Mass/Vol]o n 01-25-2025 Hematocrit (Bld) [Volume fraction] 23.8 % Low 40.0 - 52.0 % [facility] Interpretation and review of laboratory results Abnormal [facility] Hematocrit (Bld) [Volume fraction] 24.4 % Low 40.0 - 52.0 % [facility] Interpretation and review of laboratory results Abnormal [facility] Hematocrit (Bld) [Volume fraction] 24.6 % Low 40.0 - 52.0 % [facility] Interpretation and review of laboratory results Abnormal [facility] Hematocrit (Bld) [Volume fraction] 20.4 % Low 40.0 - 52.0 % [facility] Interpretation and review of laboratory results Abnormal [facility] Laboratory - Chemistry and C hemistry - challengeon 01-25-2025 Magnesium [Mass/Vol] 2.1 mg/dL 1.6 - 2 .6 mg/dL [facility] Laboratory - Coagulationon 0 01-25-2025 PT Coag (Bld) [Time] 17.4 s High 9.0 - 12.0 s [facility] PT Coag (Bld) [Time] 15.9 s High 9.0 - 12.0 s [facility] Laboratory - Hematology and Cell countson 01-25-2025 Hemoglobin (Bld) [Mass/Vol] 7.6 g/dL Low 13.0 - 18.0 g/dL [facility] Hemoglobin (Bld) [Mass/Vol] 7.7 g/dL Low 13.0 - 18.0 g/dL [facility] Hemoglobin (Bld) [Mass/Vol] 8 g/dL Low 13.0 - 18.0 g/dL [facility] Hemoglobin (Bld) [Mass/Vol] 6.3 g/dL Critically low 13.0 - 18.0 g/dL [facility] Laboratory - Microbiology an d Antimicrobial susceptibilityon 01-25-2025 A. baumannii DNA EMMANUEL+probe Ql (Unsp spec) Not detected Not Detected [facility] Laboratory - Microbiology an d Antimicrobial susceptibilityOrdered By: Petra Harris on 01-25-2025 C. auris ITS2 gene EMMANUEL+probe Ql (Unsp spec) Not detected Not Detected [facility] MAGNESIUMon 01-25-2025 Magnesium [Mass/Vol] 2.1 mg/dL Normal 1.6-2.6 [facility] Comment on above: Result Comment: ARPAN Kaplan COMMENTS:Higher values can be expected in females during menses. Performed By: #### L AB103, LAB15, [id number] ####Farm Contractor: DOMENICA JARA ([phone])[facility] [address] Magnesium [Mass/Vol]on 01-25 [facility] No Panel Informationon 01-25 Interpretation and review of laboratory results Normal [facility] Blood Expiration Date [id number] S [facility] Crossmatch interpretation COMP [facility] Dispense Status Transfused [facility] Product Blood Type 9500 [facility] PRODUCT CODE [id number] [facility] Unit ABO O [facility] Unit Number [id number] [facility] Unit RH Negative [facility] Unit Volume 300 mL [facility] Interpretation and review of laboratory results Normal [facility] No Panel InformationOrdered By: Petra Harris on 01-25-2025 Interpretation and review of laboratory results Normal [facility] PHOSPHORUSon 01-25-2025 Phosphate [Mass/Vol] 3.9 mg/dL Normal 2.3-4.7 [facility] Comment on above: Performed By: #### L AB103, LAB15, RMG800 ####Farm Contractor: DOMENICA JARA ([phone])[address] PROTHROMBIN TIMEon INR Coag (PPP) [Relative time] 1.7 {INR} High 0.9-1.1 [facility] Comment on above: Result Comment: Vaughn mmended Anticoagulant Therapy: SEE BELOW----- INR of 2.0 - 3.0 : - Prophylaxis of Venous Thrombosis (high-risk surgery) - Treatment of Venous Thrombosis - Treatment of Pulmonary Embolism (Includes tissue heart valves, Acute Myocardial Infarction to prevent systemic embolism, Valvular Heart Disease, and Atrial Fibrillation)----- INR of 2.5 - 3.5 : - Mechanical Prosthetic Valves (high risk) - If oral anticoagulant therapy is used to prevent Myocardial Infarction Performed By: #### L AB325, [id number] ####Farm Contractor: DOMENICA JARA ([phone])[facility])[address] [place] [address] PT Coag (PPP) [Time] 17.4 s High 9.0-12.0 [facility] Comment on above: Performed By: #### L AB325, [id number] ####Farm Contractor: DOMENICA JARA ([phone])[facility] ([address] PT Coag (Bld) [Time]on 01-25 INR Coag (PPP) [Relative time] 1.7 {INR} High 0.9 - 1.1 [facility] Interpretation and review of laboratory results Abnormal [facility] INR Coag (PPP) [Relative time] 1.5 {INR} High 0.9 - 1.1 [facility] Interpretation and review of laboratory results Abnormal [facility] Phosphate [Moles/Vol]on Phosphate [Mass/Vol] 3.9 mg/dL 2.3 - 4 .7 mg/dL [facility] Progress Noteon 01-25-2025 Progress Note Normal [facility] Progress Note Normal [facility] Progress Note Normal [facility] Progress [facility] Normal [facility] Progress Note Normal [facility] Progress Note Normal [facility] Progress Note Normal [facility] RF videography Hypopharynx a nd Esophagus Views for swallowing function W speech and W barium contrast Juan Carlos 01-25-2025 [facility] RADIOLOGY [facility] RADIOLOGY [facility] Radiology Study observation (narrative) [facility] RF videography Hypopharynx a nd Esophagus Views for swallowing function W speech and W barium contrast POOrdered By: Sulaiman Harp on 01-25-2025 [facility] Work Phone: aPTT Coag (Bld) [Time]on aPTT Coag (PPP) [Time] s Critically high 20.0 - 3 0.5 s [facility] Interpretation and review of laboratory results Abnormal [facility] aPTT Coag (PPP) [Time] 83.1 s High 20.0 - 30.5 s [facility] Interpretation and review of laboratory results Abnormal [facility] aPTT Coag (PPP) [Time] 47.3 s High 20.0 - 30.5 s [facility] Interpretation and review of laboratory results Abnormal [facility] 30on 01-24-2025 30 Normal [facility] 30 Normal [facility] [id number] 01-24-2025 [id number] Normal [facility] APTTon 01-24-2025 aPTT Coag (Bld) [Time] 47.3 s High 20.0-30.5 [facility] Comment on above: Result Comment: ARPAN Kaplan COMMENTS:NOTE: The therapeutic time for Heparin anticoagulation, based on Xa activity inhibition, is an APTT of 46-80 seconds. Performed By: #### L AB325 ####Farm Contractor: DOMENICA JARA ([phone])[facility])[address] [place] [address] aPTT Coag (Bld) [Time] 33.7 s High 20.0-30.5 [facility] Comment on above: Result Comment: ARPAN Kaplan COMMENTS:NOTE: The therapeutic time for Heparin anticoagulation, based on Xa activity inhibition, is an APTT of 46-80 seconds. Performed By: #### L AB320, [id number] ####Farm Contractor: DOMENICA JARA ([id number])[facility])[address] [place] [address] BASIC METABOLIC PANELon 04- Anion gap [Moles/Vol] 12 mmol/L Normal 3-13 [facility] Comment on above: Performed By: #### L AB15 ####Farm Contractor: DOMENICA JARA ([phone])[facility])[address] [place] [address] Calcium [Mass/Vol] 9.3 mg/dL Normal 8.4-10.2 [facility] Comment on above: Performed By: #### L AB15 ####Farm Contractor: DOMENICA JARA ([phone])[facility])[address] [place] [address] [place] Chloride [Moles/Vol] 100 mmol/L Normal 98-107 [facility] Comment on above: Performed By: #### L AB15 ####Farm Contractor: DOMENICA JARA ([id number])[facility] [place] [address] CO2 [Moles/Vol] 26 mmol/L Normal 22-29 [facility] Comment on above: Performed By: #### L AB15 ####Farm Contractor: DOMENICA JARA ([id number])[facility] ([facility])[address] [place] [address] Creatinine [Mass/Vol] 1.47 mg/dL High 0.72-1.25 [facility] Comment on above: Performed By: #### L AB15 ####Farm Contractor: DOMENICA JARA ([phone])[facility])[address] [place] [address] GLOMERULAR FILTRATION RATE ML/MIN/1.73 SQ M.PREDICTED 54.6 mL/min/1.73m*2 Low >60.0 [facility] Comment on above: Result Comment: Calc ulation based on the Chronic Kidney Disease Epidemiology Collaboration (CKD-EPI) equation refit without adjustment for race Performed By: #### L AB15 ####Farm Contractor: DOMENICA JARA ([id number])[facility] ([facility])[address] [place] [address] Glucose [Mass/Vol] 77 mg/dL Normal 74-100 [facility] Comment on above: Performed By: #### L AB15 ####Farm Contractor: DOMENICA JARA ([phone])[facility])[address] [place] [address] Potassium [Moles/Vol] 3.5 mmol/L Normal 3.5-5.1 [facility] Comment on above: Result Comment: [facility] potassium values may be up to 0.5 mmol/L lower than serum values. Performed By: #### L AB15 ####Farm Contractor: DOMENICA JARA ([phone])[facility] ([facility])[address] [place] [address] Sodium [Moles/Vol] 138 mmol/L Normal 136-145 [facility] Comment on above: Performed By: #### L AB15 ####Farm Contractor: DOMENICA JARA ([phone])[facility] ([facility])[address] [place] [address] Urea nitrogen [Mass/Vol] 9 mg/dL Normal 9-23 [facility] Comment on above: Performed By: #### L AB15 ####Farm Contractor: DOMENICA JARA ([phone])[facility] ([facility])[address] [place] [address] Anion gap [Moles/Vol] 20 mmol/L High 3-13 [facility] Comment on above: Performed By: #### L [id number], OKH677, LAB15, HTB752 ####Farm Contractor: DOMENICA JARA ([phone])[facility] ([facility])[address] [place] [address] Calcium [Mass/Vol] 10.2 mg/dL Normal 8.4-10.2 [facility] Comment on above: Performed By: #### L [id number], GTI456, LAB15, MWI093 ####Farm Contractor: DOMENICA JARA ([phone])[facility] ([facility])[address] [place] [address] [place] Chloride [Moles/Vol] 98 mmol/L Normal 98-107 [facility] Comment on above: Performed By: #### L [id number], BTB687, LAB15, EMG747 ####Farm Contractor: DOMENICA JARA ([phone])[facility] ([facility])[address] [place] [address] [place] CO2 [Moles/Vol] 21 mmol/L Low 22-29 [facility] Comment on above: Performed By: #### L [id number], KXB586, LAB15, OQL845 ####Farm Contractor: DOMENICA JARA ([phone])[facility])[address] [place] [address] Creatinine [Mass/Vol] 3.62 mg/dL High 0.72-1.25 [facility] Comment on above: Performed By: #### L [id number], COA898, LAB15, XDC114 ####Farm Contractor: DOMENICA JARA ([phone])[facility])[address] [place] [address] GLOMERULAR FILTRATION RATE ML/MIN/1.73 SQ M.PREDICTED 18.5 mL/min/1.73m*2 Low >60.0 [facility] Comment on above: Result Comment: Calc ulation based on the Chronic Kidney Disease Epidemiology Collaboration (CKD-EPI) equation refit without adjustment for race Performed By: #### L [id number], BAB696, LAB15, KOU938 ####Farm Contractor: DOMENICA JARA ([phone])[address] Glucose [Mass/Vol] 74 mg/dL Normal 74-100 [facility] Comment on above: Performed By: #### L [id number], JJH376, LAB15, MHC478 ####Farm Contractor: DOMENICA JARA ([id number])[facility])[address] [place] [address] Potassium [Moles/Vol] 4.0 mmol/L Normal 3.5-5.1 [facility] Comment on above: Result Comment: [facility] potassium values may be up to 0.5 mmol/L lower than serum values. Performed By: #### L [id number], KCM895, LAB15, ZFD892 ####Farm Contractor: DOMENICA JARA ([phone])[facility])[address] [place] [address] [place] Sodium [Moles/Vol] 139 mmol/L Normal 136-145 [facility] Comment on above: Performed By: #### L [id number], HFN457, LAB15, EFG600 ####Farm Contractor: DOMENICA JARA ([phone])[facility])[address] [place] [address] [place] Urea nitrogen [Mass/Vol] 27 mg/dL High 9-23 [facility] Comment on above: Performed By: #### L [id number], RZM246, LAB15, YYA142 ####Farm Contractor: DOMENICA JARA ([phone])[facility] BETA HYDROXYBUTYRATEon 01-24 BETA HYDROXYBUTYRATE 10.5 mg/dL High <=2.8 [facility] Comment on above: Performed By: #### L [id number], WAD177, LAB15, ODJ328 ####Farm Contractor: DOMENICA JARA ([phone])[facility] ([facility])[address] [place] [address] Basic metabolic 1998 panelon 01-24-2025 Anion gap [Moles/Vol] 12 mmol/L 3 - 13 mmol/L [facility] Calcium [Mass/Vol] 9.3 mg/dL 8.4 - 10. 2 mg/dL [facility] Chloride [Moles/Vol] 100 mmol/L 98 - 10 7 mmol/L [facility] CO2 [Moles/Vol] 26 mmol/L 22 - 29 mmol/L [facility] Creatinine [Mass/Vol] 1.47 mg/dL High 0.72 - 1.25 mg/dL [facility] GFR/1.73 sq M.predicted (S/P/Bld) [Vol rate/Area] 54.6 mL/min Low - PINF [facility] Glucose [Mass/Vol] 77 mg/dL 74 - 100 mg/dL [facility] Interpretation and review of laboratory results Abnormal [facility] Potassium [Moles/Vol] 3.5 mmol/L 3.5 - 5.1 mmol/L [facility] Sodium [Moles/Vol] 138 mmol/L 136 - 145 mmol/L [facility] Urea nitrogen [Mass/Vol] 9 mg/dL 9 - 23 mg/d L [facility] Anion gap [Moles/Vol] 20 mmol/L High 3 - 13 mmol/L [facility] Calcium [Mass/Vol] 10.2 mg/dL 8.4 - 10. 2 mg/dL [facility] Chloride [Moles/Vol] 98 mmol/L 98 - 10 7 mmol/L [facility] CO2 [Moles/Vol] 21 mmol/L Low 22 - 29 mmol/L [facility] Creatinine [Mass/Vol] 3.62 mg/dL High 0.72 - 1.25 mg/dL [facility] GFR/1.73 sq M.predicted (S/P/Bld) [Vol rate/Area] 18.5 mL/min Low - PINF [facility] Glucose [Mass/Vol] 74 mg/dL 74 - 100 mg/dL [facility] Potassium [Moles/Vol] 4 mmol/L 3.5 - 5.1 mmol/L [facility] Sodium [Moles/Vol] 139 mmol/L 136 - 145 mmol/L [facility] Urea nitrogen [Mass/Vol] 27 mg/dL High 9 - 23 mg/d L [facility] CBC (HEMOGRAM)on 01-24-2025 Erythrocyte distribution width (RBC) [Ratio] 19.4 % High 11.5-15.0 [facility] Comment on above: Performed By: #### L AB294 ####Farm Contractor: DOMENICA JARA ([id number])[facility])[address] [place] [address] Hematocrit (Bld) [Volume fraction] 27.0 % Low 40.0-52.0 [facility] Comment on above: Performed By: #### L AB294 ####Farm Contractor: DOMENICA JARA ([phone])[facility] ([facility])[address] [place] [address] Hemoglobin (Bld) [Mass/Vol] 8.0 g/dL Low 13.0-18.0 [facility] Comment on above: Performed By: #### L AB294 ####Farm Contractor: DOMENICA JARA ([phone])[facility] ([facility])[address] [place] [address] MCH (RBC) [Entitic mass] 27.9 pg Normal 26.0-34.0 [facility] Comment on above: Performed By: #### L AB294 ####Farm Contractor: DOMENICA JARA ([phone])[facility])[address] [place] [address] MCHC 29.6 % Low 30.5-36.0 [facility] Comment on above: Performed By: #### L AB294 ####Farm Contractor: DOMENICA [id number])[facility])[address] [place] [address] MCV (RBC) [Entitic vol] 94.1 fL Normal 77.0-99.0 S [facility] Comment on above: Performed By: #### L AB294 ####Farm Contractor: DOMENICA JARA ([phone])[facility] ([facility])[address] [place] [address] Platelet mean volume (Bld) [Entitic vol] 9.2 fL Normal 9.0-12.7 [facility] Comment on above: Performed By: #### L AB294 ####Farm Contractor: DOMENICA JARA ([phone])[facility] ([facility])[address] [place] [address] Platelets (Bld) [#/Vol] 355 10*3/uL Normal 140-440 [facility] Comment on above: Performed By: #### L AB294 ####Farm Contractor: DOMENICA JARA ([id number])[facility] ([facility])[address] [place] [address] RBC (Bld) [#/Vol] 2.87 10*6/uL Low 4.40-5.90 [facility] Comment on above: Performed By: #### L AB294 ####Farm Contractor: DOMENICA JARA ([id number])[facility] ([facility])[address] [place] [address] WBC (Bld) [#/Vol] 11.5 10*3/uL High 3.6-10.7 [facility] Comment on above: Performed By: #### L AB294 ####Farm Contractor: DOMENICA JARA ([phone])[facility])[address] [place] [address] CBC panel Auto (Bld)Ordered By: Liseth Granado on 01-24-2025 Erythrocyte distribution width (RBC) [Ratio] 19.4 % High 11.5 - 15.0 % [facility] Hematocrit (Bld) [Volume fraction] 27 % Low 40.0 - 52.0 % [facility] Hemoglobin (Bld) [Mass/Vol] 8 g/dL Low 13.0 - 18.0 g/dL [facility] Interpretation and review of laboratory results Abnormal [facility] MCH (RBC) [Entitic mass] 27.9 pg 26. 0 - 34.0 pg [facility] MCHC (RBC) [Mass/Vol] 29.6 % Low 30.5 - 36.0 % [facility] MCV (RBC) [Entitic vol] 94.1 fL 77.0 - 99.0 fL [facility] Platelet mean volume (Bld) [Entitic vol] 9.2 fL 9.0 - 12.7 fL [facility] Platelets (Bld) [#/Vol] 355 10*3/uL 140 - 440 10*3/uL [facility] RBC (Bld) [#/Vol] 2.87 10*6/uL Low 4.40 - 5.9 0 10*6/uL [facility] WBC (Bld) [#/Vol] 11.5 10*3/uL High 3.6 - 10.7 10*3/uL [facility] HEMOGLOBIN AND HEMATOCRIT, B [facility] 01-24-2025 Hematocrit (Bld) [Volume fraction] 20.4 % Low 40.0-52.0 [facility] Comment on above: Performed By: #### L AB753 ####Farm Contractor: DOMENICA JARA ([phone])[address] Hemoglobin (Bld) [Mass/Vol] 6.3 g/dL Critically low 13.0-18.0 [facility] Comment on above: Performed By: #### L AB753 ####Farm Contractor: DOMENICA JARA ([phone])[facility])[address] [place] [address] Hematocrit (Bld) [Volume fraction] 23.0 % Low 40.0-52.0 [facility] Comment on above: Performed By: #### L AB753 ####Farm Contractor: DOMENICA JARA ([phone])[facility])[address] [place] [address] Hemoglobin (Bld) [Mass/Vol] 7.3 g/dL Low 13.0-18.0 [facility] Comment on above: Performed By: #### L AB753 ####Farm Contractor: DOMENICA JARA ([phone])[facility])[address] [place] [address] Hemoglobin (Bld) [Mass/Vol]o n 01-24-2025 Hematocrit (Bld) [Volume fraction] 23 % Low 40.0 - 52.0 % [facility] Interpretation and review of laboratory results Abnormal [facility] LACTIC ACID WITH REFLEXon Lactate [Moles/Vol] 0.9 mmol/L Normal 0.5-2.2 [facility] Comment on above: Performed By: #### L [id number] ####Farm Contractor: DOMENICA JARA ([phone])[facility] ([facility])[address] [place] [address] Laboratory - Chemistry and C hemistry - challengeon 01-24-2025 Lactate [Moles/Vol] 0.9 mmol/L 0.5 - 2. 2 mmol/L [facility] Laboratory - Chemistry and C hemistry - challengeOrdered By: Farhat Simons on 01-24-2025 Beta hydroxybutyrate [Mass/Vol] 10.5 mg/dL High NINF - 2.8 mg/dL [facility] Laboratory - Chemistry and C hemistry - challengeOrdered By: Victorino Graham on 01-24-2025 Magnesium [Mass/Vol] 2.3 mg/dL 1.6 - 2 .6 mg/dL [facility] Laboratory - Coagulationon 0 01-24-2025 PT Coag (Bld) [Time] 15.1 s High 9.0 - 12.0 s [facility] PT Coag (Bld) [Time] 15.6 s High 9.0 - 12.0 s [facility] Laboratory - Hematology and Cell countson 01-24-2025 Hemoglobin (Bld) [Mass/Vol] 7.3 g/dL Low 13.0 - 18.0 g/dL [facility] MAGNESIUMon 01-24-2025 Magnesium [Mass/Vol] 2.3 mg/dL Normal 1.6-2.6 [facility] Comment on above: Result Comment: ORDE R COMMENTS:Higher values can be expected in females during menses. Performed By: #### L [id number], FLM685, LAB15, EAN824 ####Farm Contractor: DOMENICA JARA ([phone])[facility])[address] [place] [address] Magnesium [Mass/Vol]Ordered By: Victorino Graham on 01-24-2025 Interpretation and review of laboratory results Normal [facility] No Panel Informationon 01-24 Interpretation and review of laboratory results Abnormal [facility] Interpretation and review of laboratory results Normal [facility] Interpretation and review of laboratory results Abnormal [facility] Blood Expiration Date S [facility] [employer] CrossQuizFortunetch interpretation COMP [facility] Dispense Status Released from [employer] [facility] [employer] Product Blood Type 9500 [facility] PRODUCT CODE [id number] [facility] Health Unit ABO O [facility] Unit Number [id number] [facility] alth Unit RH Negative [facility] Unit Volume 300 mL [facility] No Panel InformationOrdered By: Farhat Simons on 01-24-2025 Interpretation and review of laboratory results Abnormal [facility] No Panel InformationOrdered By: Victorino Graham on 01-24-2025 [facility] Nursing Noteon 01-24-2025 Nursing Note Normal [facility] Op Noteon 01-24-2025 Op Note Normal [facility] PHOSPHORUSon 01-24-2025 Phosphate [Mass/Vol] 5.1 mg/dL High 2.3-4.7 [facility] Comment on above: Performed By: #### L [id number], ZFI705, LAB15, HJC240 ####Farm Contractor: DOMENICA JARA ([id number])[facility] ([facility])[address] [place] [address] PROTHROMBIN TIMEon INR Coag (PPP) [Relative time] 1.5 {INR} High 0.9-1.1 [facility] Comment on above: Result Comment: Vaughn mmended Anticoagulant Therapy: SEE BELOW----- INR of 2.0 - 3.0 : - Prophylaxis of Venous Thrombosis (high-risk surgery) - Treatment of Venous Thrombosis - Treatment of Pulmonary Embolism (Includes tissue heart valves, Acute Myocardial Infarction to prevent systemic embolism, Valvular Heart Disease, and Atrial Fibrillation)----- INR of 2.5 - 3.5 : - Mechanical Prosthetic Valves (high risk) - If oral anticoagulant therapy is used to prevent Myocardial Infarction Performed By: #### L AB320 ####Farm Contractor: DOMENICA JARA ([phone])[facility])[address] [place] [address] PT Coag (PPP) [Time] 15.9 s High 9.0-12.0 [facility] Comment on above: Performed By: #### L AB320 ####Farm Contractor: DOMENICA JARA ([phone])[facility])[address] [place] [address] INR Coag (PPP) [Relative time] 1.5 {INR} High 0.9-1.1 [facility] Comment on above: Result Comment: Vaughn mmended Anticoagulant Therapy: SEE BELOW----- INR of 2.0 - 3.0 : - Prophylaxis of Venous Thrombosis (high-risk surgery) - Treatment of Venous Thrombosis - Treatment of Pulmonary Embolism (Includes tissue heart valves, Acute Myocardial Infarction to prevent systemic embolism, Valvular Heart Disease, and Atrial Fibrillation)----- INR of 2.5 - 3.5 : - Mechanical Prosthetic Valves (high risk) - If oral anticoagulant therapy is used to prevent Myocardial Infarction Performed By: #### Tameka AB320, DTN537 ####Farm Contractor: DOMENICA JARA ([phone])[facility])[address] [place] [address] PT Coag (PPP) [Time] 15.1 s High 9.0-12.0 [facility] Comment on above: Performed By: #### L AB320, MUU262 ####Farm Contractor: DOMENICA JARA ([phone])[facility])[address] [place] [address] INR Coag (PPP) [Relative time] 1.5 {INR} High 0.9-1.1 [facility] Comment on above: Result Comment: Vaughn mmended Anticoagulant Therapy: SEE BELOW----- INR of 2.0 - 3.0 : - Prophylaxis of Venous Thrombosis (high-risk surgery) - Treatment of Venous Thrombosis - Treatment of Pulmonary Embolism (Includes tissue heart valves, Acute Myocardial Infarction to prevent systemic embolism, Valvular Heart Disease, and Atrial Fibrillation)----- INR of 2.5 - 3.5 : - Mechanical Prosthetic Valves (high risk) - If oral anticoagulant therapy is used to prevent Myocardial Infarction Performed By: #### L [id number] ####Farm Contractor: DOMENICA JARA ([phone])[facility] ([facility])[address] [place] [address] PT Coag (PPP) [Time] 15.6 s High 9.0-12.0 [facility] Comment on above: Performed By: #### Tameka AB320 ####Farm Contractor: DOMENICA JARA ([phone])[facility] ([facility])[address] [place] [address] PT Coag (Bld) [Time]on 01-24 INR Coag (PPP) [Relative time] 1.5 {INR} High 0.9 - 1.1 [facility] INR Coag (PPP) [Relative time] 1.5 {INR} High 0.9 - 1.1 [facility] Interpretation and review of laboratory results Abnormal [facility] Phosphate [Moles/Vol]on 12-28 Phosphate [Mass/Vol] 5.1 mg/dL High 2.3 - 4 .7 mg/dL [facility] Progress Noteon 01-24-2025 Progress Note Normal [facility] Progress Note Normal [facility] Progress Note Normal [facility] Progress Note Normal [facility] Progress Note Normal [facility] XR CHEST 1 VIEWon 01-24-2025 XR CHEST 1 VIEW Normal [facility] XR Chest Single viewon 01-24 [facility] Radiology Study observation (narrative) [facility] aPTT Coag (Bld) [Time]on aPTT Coag (PPP) [Time] 33.7 s High 20.0 - 30.5 s [facility] aPTT Coag (Bld) [Time]Ordere d By: Callie Steele on 01-24-2025 aPTT Coag (PPP) [Time] 114.7 s High 20.0 - 30.5 s [facility] Interpretation and review of laboratory results Abnormal [facility] 30on 01-23-2025 30 Normal [facility] APTTon 01-23-2025 aPTT Coag (Bld) [Time] 114.7 s High 20.0-30.5 [facility] Comment on above: Result Comment: ARPAN Kaplan COMMENTS:NOTE: The therapeutic time for Heparin anticoagulation, based on Xa activity inhibition, is an APTT of 46-80 seconds. Performed By: #### L AB325 ####Farm Contractor: DOMENICA JARA ([phone])[facility] ([facility])[address] [place] [address] BASIC METABOLIC PANELon 12-27 Anion gap [Moles/Vol] 13 mmol/L Normal 3-13 [facility] Comment on above: Performed By: #### L AB15, [id number], [id number] ####Farm Contractor: DOMENICA JARA ([phone])[facility] ([facility])[address] [place] [address] Calcium [Mass/Vol] 9.4 mg/dL Normal 8.4-10.2 [facility] Comment on above: Performed By: #### L AB15, [id number], [id number] ####Farm Contractor: DOMENICA JARA ([phone])[facility] ([facility])[address] [place] [address] [place] Chloride [Moles/Vol] 102 mmol/L Normal 98-107 [facility] Comment on above: Performed By: #### L AB15, [id number], [id number] ####Farm Contractor: DOMENICA JRAA ([phone])[facility] ([facility])[address] [place] [address] [place] CO2 [Moles/Vol] 25 mmol/L Normal 22-29 [facility] Comment on above: Performed By: #### L AB15, [id number], [id number] ####Farm Contractor: DOMENICA JARA ([phone])[facility])[address] [place] [address] Creatinine [Mass/Vol] 2.34 mg/dL High 0.72-1.25 [facility] Comment on above: Performed By: #### L AB15, [id number], [id number] ####Farm Contractor: DOMENICA JARA ([phone])[facility])[address] [place] [address] GLOMERULAR FILTRATION RATE ML/MIN/1.73 SQ M.PREDICTED 31.3 mL/min/1.73m*2 Low >60.0 [facility] Comment on above: Result Comment: Calc ulation based on the Chronic Kidney Disease Epidemiology Collaboration (CKD-EPI) equation refit without adjustment for race Performed By: #### L AB15, [id number], [id number] ####Farm Contractor: DOMENICA JARA ([phone])[facility])[address] [place] [address] Glucose [Mass/Vol] 80 mg/dL Normal 74-100 [facility] Comment on above: Performed By: #### L AB15, [id number], GSO937 ####Farm Contractor: DOMENICA JARA ([phone])[address] Potassium [Moles/Vol] 3.4 mmol/L Low 3.5-5.1 [facility] Comment on above: Result Comment: [facility] potassium values may be up to 0.5 mmol/L lower than serum values. Performed By: #### L AB15, [id number], NJI266 ####Farm Contractor: DOMENICA JARA ([phone])[facility])[address] [place] [address] Sodium [Moles/Vol] 140 mmol/L Normal 136-145 [facility] Comment on above: Performed By: #### L AB15, [id number], IER498 ####Farm Contractor: DOMENICA JARA ([phone])[facility])[address] [place] [address] Urea nitrogen [Mass/Vol] 22 mg/dL Normal 9-23 [facility] Comment on above: Performed By: #### L AB15, [id number], YSL793 ####Farm Contractor: DOMENICA JARA ([phone])[facility] ([employer])[address] [place] [address] Basic metabolic 1998 panelon 01-23-2025 Anion gap [Moles/Vol] 13 mmol/L 3 - 13 mmol/L [facility] Calcium [Mass/Vol] 9.4 mg/dL 8.4 - 10. 2 mg/dL [facility] Chloride [Moles/Vol] 102 mmol/L 98 - 10 7 mmol/L [facility] CO2 [Moles/Vol] 25 mmol/L 22 - 29 mmol/L [facility] Creatinine [Mass/Vol] 2.34 mg/dL High 0.72 - 1.25 mg/dL [facility] GFR/1.73 sq M.predicted (S/P/Bld) [Vol rate/Area] 31.3 mL/min Low - PINF [facility] Glucose [Mass/Vol] 80 mg/dL 74 - 100 mg/dL [facility] Interpretation and review of laboratory results Abnormal [facility] Potassium [Moles/Vol] 3.4 mmol/L Low 3.5 - 5.1 mmol/L [facility] Sodium [Moles/Vol] 140 mmol/L 136 - 145 mmol/L [facility] Urea nitrogen [Mass/Vol] 22 mg/dL 9 - 23 mg/d L [facility] CBC W Auto Differential pane l (Bld)on 01-23-2025 Basophils (Bld) [#/Vol] 0.1 10*3/uL 0.0 - 0.2 10*3/uL [facility] Basophils/100 WBC (Bld) 1 % 0.0 - 2.0 % [facility] Eosinophils (Bld) [#/Vol] 0.7 10*3/uL High 0.0 - 0.5 10*3/uL [facility] Eosinophils/100 WBC (Bld) 6.8 % High 0.0 - 6.0 % [facility] Erythrocyte distribution width (RBC) [Ratio] 18.8 % High 11.5 - 15.0 % [facility] Hematocrit (Bld) [Volume fraction] 25.3 % Low 40.0 - 52.0 % [facility] Hemoglobin (Bld) [Mass/Vol] 7.9 g/dL Low 13.0 - 18.0 g/dL [facility] Immature granulocytes (Bld) [#/Vol] 0.1 10*3/uL High NINF - 0.1 10*3/uL [facility] Immature granulocytes/100 WBC (Bld) 1.1 % 0.0 - 2.0 % [facility] Interpretation and review of laboratory results Abnormal [facility] Lymphocytes (Bld) [#/Vol] 1.5 10*3/uL 1.0 - 4.3 10*3/uL [facility] Lymphocytes/100 WBC (Bld) 13.7 % Low 15.0 - 45.0 % [facility] MCH (RBC) [Entitic mass] 27.9 pg 26. 0 - 34.0 pg [facility] MCHC (RBC) [Mass/Vol] 31.2 % 30.5 - 36.0 % [facility] MCV (RBC) [Entitic vol] 89.4 fL 77.0 - 99.0 fL [facility] [employer] Monocytes (Bld) [#/Vol] 1.5 10*3/uL High 0.0 - 0.9 10*3/uL [facility] Monocytes/100 WBC (Bld) 13.7 % High 5.0 - 13.0 % [facility] Neutrophils (Bld) [#/Vol] 7 10*3/uL 1.8 - 7.5 10*3/uL [facility] Neutrophils/100 WBC (Bld) 63.7 % 38.0 - 82.0 % [facility] Nucleated RBC/100 WBC (Bld) [Ratio] 0 % [facility] [employer] Platelet mean volume (Bld) [Entitic vol] 9.4 fL 9.0 - 12.7 fL [facility] Platelets (Bld) [#/Vol] 346 10*3/uL 140 - 440 10*3/uL [facility] RBC (Bld) [#/Vol] 2.83 10*6/uL Low 4.40 - 5.9 0 10*6/uL [facility] WBC (Bld) [#/Vol] 10.9 10*3/uL High 3.6 - 10.7 10*3/uL [facility] Basophils (Bld) [#/Vol] 0.1 10*3/uL 0.0 - 0.2 10*3/uL [facility] Basophils/100 WBC (Bld) 1.1 % 0.0 - 2.0 % [facility] Eosinophils (Bld) [#/Vol] 0.9 10*3/uL High 0.0 - 0.5 10*3/uL [facility] Eosinophils/100 WBC (Bld) 8 % High 0.0 - 6.0 % [facility] Erythrocyte distribution width (RBC) [Ratio] 18.5 % High 11.5 - 15.0 % [facility] Hematocrit (Bld) [Volume fraction] 23.4 % Low 40.0 - 52.0 % [facility] Hemoglobin (Bld) [Mass/Vol] 7.3 g/dL Low 13.0 - 18.0 g/dL [facility] Immature granulocytes (Bld) [#/Vol] 0.1 10*3/uL High NINF - 0.1 10*3/uL [facility] Immature granulocytes/100 WBC (Bld) 1.1 % 0.0 - 2.0 % [facility] Interpretation and review of laboratory results Abnormal [facility] Lymphocytes (Bld) [#/Vol] 1.4 10*3/uL 1.0 - 4.3 10*3/uL [facility] Lymphocytes/100 WBC (Bld) 12.2 % Low 15.0 - 45.0 % [facility] MCH (RBC) [Entitic mass] 27.7 pg 26. 0 - 34.0 pg [facility] MCHC (RBC) [Mass/Vol] 31.2 % 30.5 - 36.0 % [facility] MCV (RBC) [Entitic vol] 88.6 fL 77.0 - 99.0 fL [facility] Monocytes (Bld) [#/Vol] 1.4 10*3/uL High 0.0 - 0.9 10*3/uL [facility] Monocytes/100 WBC (Bld) 12.9 % 5.0 - 13.0 % [facility] Neutrophils (Bld) [#/Vol] 7.2 10*3/uL 1.8 - 7.5 10*3/uL [facility] Neutrophils/100 WBC (Bld) 64.7 % 38.0 - 82.0 % [facility] Nucleated RBC/100 WBC (Bld) [Ratio] 0 % [facility] Platelet mean volume (Bld) [Entitic vol] 9.1 fL 9.0 - 12.7 fL [facility] Platelets (Bld) [#/Vol] 345 10*3/uL 140 - 440 10*3/uL [facility] RBC (Bld) [#/Vol] 2.64 10*6/uL Low 4.40 - 5.9 0 10*6/uL [facility] WBC (Bld) [#/Vol] 11.1 10*3/uL High 3.6 - 10.7 10*3/uL [facility] CBC WITH AUTO DIFFERENTIALon 01-23-2025 Basophils (Bld) [#/Vol] 0.1 10*3/uL Normal 0.0-0.2 [facility] Comment on above: Performed By: #### Tameka [id number], [id number] ####Farm Contractor: DOMENICA JARA ([phone])[facility])[address] [place] [address] Basophils/100 WBC (Bld) 1.0 % Normal 0.0-2.0 [facility] Comment on above: Performed By: #### Tameka MARTINEZ, [id number] ####Farm Contractor: DOMENICA [phone])[facility])[address] [place] [address] [place] Eosinophils (Bld) [#/Vol] 0.7 10*3/uL High 0.0-0.5 [facility] Comment on above: Performed By: #### Tameka [id number], [id number] ####Farm Contractor: DOMENICA JARA ([phone])[facility])[address] [place] [address] [place] Eosinophils/100 WBC (Bld) 6.8 % High 0.0-6.0 [facility] Comment on above: Performed By: #### L [id number], [id number] ####Farm Contractor: DOMENICA [phone])[facility] ([address] Erythrocyte distribution width (RBC) [Ratio] 18.8 % High 11.5-15.0 [facility] Comment on above: Performed By: #### L [id number], [id number] ####Farm Contractor: DOMENICA JARA ([phone])[facility])[address] [place] [address] Hematocrit (Bld) [Volume fraction] 25.3 % Low 40.0-52.0 [facility] Comment on above: Performed By: #### L [id number], [id number] ####Farm Contractor: DOMENICA JARA ([phone])[facility])[address] [place] [address] IMMATURE GRANS % 1.1 % Normal 0.0-2.0 [facility] Comment on above: Performed By: #### Tameka [id number], [id number] ####Farm Contractor: DOMENICA JARA ([phone])[facility])[address] [place] [address] IMMATURE GRANS ABSOLUTE 0.1 10*3/uL High <0.1 [facility] Comment on above: Performed By: #### L [id number], [id number] ####Farm Contractor: DOMENICA [phone])[facility])[address] [place] [address] Lymphocytes (Bld) [#/Vol] 1.5 10*3/uL Normal 1.0-4.3 [facility] Comment on above: Performed By: #### L [id number], [id number] ####Farm Contractor: DOMENICA JARA ([phone])[facility])[address] [place] [address] Lymphocytes/100 WBC (Bld) 13.7 % Low 15.0-45.0 [facility] Comment on above: Performed By: #### L [id number], [id number] ####Farm Contractor: DOMENICA [id number])[facility])[address] [place] [address] MCH (RBC) [Entitic mass] 27.9 pg Normal 26.0-34.0 [facility] Comment on above: Performed By: #### Tameka MARTINEZ, [id number] ####Farm Contractor: DOMENICA JARA ([phone])[facility])[address] [place] [address] MCHC 31.2 % Normal 30.5-36.0 [facility] Comment on above: Performed By: #### Tameka MARTINEZ, [id number] ####Farm Contractor: DOMENICA JARA ([phone])[facility])[address] [place] [address] MCV (RBC) [Entitic vol] 89.4 fL Normal 77.0-99.0 [facility] Comment on above: Performed By: #### Tameka MARTINEZ, [id number] ####Farm Contractor: DOMENICA JARA ([phone])[facility] ([facility])[address] [place] [address] Monocytes (Bld) [#/Vol] 1.5 10*3/uL High 0.0-0.9 [facility] Comment on above: Performed By: #### Tameka MARTINEZ, [id number] ####Farm Contractor: DOMENICA JARA ([phone])[facility] ([facility])[address] [place] [address] Monocytes/100 WBC (Bld) 13.7 % High 5.0-13.0 [facility] Comment on above: Performed By: #### Tameka MARTINEZ, [id number] ####Farm Contractor: DOMENICA JARA ([phone])[facility] ([facility])[address] [place] [address] NEUTROPHILS ABSOLUTE 7.0 10*3/uL Normal 1.8-7.5 [facility] Comment on above: Performed By: #### Tameka MARTINEZ, [id number] ####Farm Contractor: DOMENICA JARA ([phone])[facility] ([facility])[address] [place] [address] [place] Neutrophils/100 WBC (Bld) 63.7 % Normal 38.0-82.0 [facility] Comment on above: Performed By: #### Tameka [id number], [id number] ####Farm Contractor: DOMENICA JARA ([phone])[facility] ([facility])[address] [place] [address] [place] NRBC 0.0 /100 WBCs Normal 0.0-2.0 [facility] Comment on above: Performed By: #### Tameka MARTINEZ, [id number] ####Farm Contractor: DOMENICA JARA ([phone])[facility] ([facility])[address] [place] [address] Platelet mean volume (Bld) [Entitic vol] 9.4 fL Normal 9.0-12.7 [facility] Comment on above: Performed By: #### Tameka MARTINEZ, [id number] ####Farm Contractor: DOMENICA JARA ([phone])[facility] ([facility])[address] [place] [address] [place] Platelets (Bld) [#/Vol] 346 10*3/uL Normal 140-440 [facility] Comment on above: Performed By: #### Tameka MARTINEZ, [id number] ####Farm Contractor: DOMENICA JARA ([phone])[facility] ([facility])[address] [place] [address] [place] RBC (Bld) [#/Vol] 2.83 10*6/uL Low 4.40-5.90 [facility] Comment on above: Performed By: #### L [id number], [id number] ####Farm Contractor: DOMENICA JARA ([phone])[facility] ([facility])[address] [place] [address] [place] WBC (Bld) [#/Vol] 10.9 10*3/uL High 3.6-10.7 [facility] Comment on above: Performed By: #### L [id number], [id number] ####Farm Contractor: DOMENICA JARA ([phone])[facility] ([facility])[address] [place] [address] [place] Basophils (Bld) [#/Vol] 0.1 10*3/uL Normal 0.0-0.2 [facility] Comment on above: Performed By: #### L [id number] ####Farm Contractor: DOMENICA JARA ([phone])[facility] ([facility])[address] [place] [address] Basophils/100 WBC (Bld) 1.1 % Normal 0.0-2.0 [facility] Comment on above: Performed By: #### L [id number] ####Farm Contractor: DOMENICA JARA ([phone])[facility] ([facility])[address] [place] [address] Eosinophils (Bld) [#/Vol] 0.9 10*3/uL High 0.0-0.5 [facility] Comment on above: Performed By: #### L [id number] ####Farm Contractor: DOMENICA JARA ([phone])[facility] ([facility])[address] [place] [address] Eosinophils/100 WBC (Bld) 8.0 % High 0.0-6.0 [facility] Comment on above: Performed By: #### L [id number] ####Farm Contractor: DOMENICA JARA ([phone])[facility])[address] [place] [address] Erythrocyte distribution width (RBC) [Ratio] 18.5 % High 11.5-15.0 [facility] Comment on above: Performed By: #### L [id number] ####Farm Contractor: DOMENICA JARA ([phone])[facility])[address] [place] [address] Hematocrit (Bld) [Volume fraction] 23.4 % Low 40.0-52.0 [facility] Comment on above: Performed By: #### L [id number] ####Farm Contractor: DOMENICA JARA ([phone])[facility])[address] [place] [address] Hemoglobin (Bld) [Mass/Vol] 7.3 g/dL Low 13.0-18.0 [facility] Comment on above: Performed By: #### L [id number] ####Farm Contractor: DOMENICA JARA ([phone])[facility])[address] [place] [address] IMMATURE GRANS % 1.1 % Normal 0.0-2.0 [facility] Comment on above: Performed By: #### L [id number] ####Farm Contractor: DOMENICA JARA ([phone])[facility])[address] [place] [address] IMMATURE GRANS ABSOLUTE 0.1 10*3/uL High <0.1 [facility] Comment on above: Performed By: #### L [id number] ####Farm Contractor: DOMENICA JARA ([phone])[address] Lymphocytes (Bld) [#/Vol] 1.4 10*3/uL Normal 1.0-4.3 [facility] Comment on above: Performed By: #### L [id number] ####Farm Contractor: DOMENICA JARA ([phone])[address] Lymphocytes/100 WBC (Bld) 12.2 % Low 15.0-45.0 [facility] Comment on above: Performed By: #### L [id number] ####Farm Contractor: DOMENICA JARA ([id number])[address] MCH (RBC) [Entitic mass] 27.7 pg Normal 26.0-34.0 [facility] Comment on above: Performed By: #### L [id number] ####Farm Contractor: DOMENICA JARA ([phone])[address] MCHC 31.2 % Normal 30.5-36.0 [facility] Comment on above: Performed By: #### L [id number] ####Farm Contractor: DOMENICA [id number])[facility] ([facility])[address] [place] [address] MCV (RBC) [Entitic vol] 88.6 fL Normal 77.0-99.0 [facility] Comment on above: Performed By: #### L [id number] ####Farm Contractor: DOMENICA JARA ([phone])[facility] ([facility])[address] [place] [address] [place] Monocytes (Bld) [#/Vol] 1.4 10*3/uL High 0.0-0.9 [facility] Comment on above: Performed By: #### L [id number] ####Farm Contractor: DOMENICA JARA ([phone])[facility] ([facility])[address] [place] [address] Monocytes/100 WBC (Bld) 12.9 % Normal 5.0-13.0 [facility] Comment on above: Performed By: #### L [id number] ####Farm Contractor: DOMENICA JARA ([phone])[facility] ([facility])[address] [place] [address] NEUTROPHILS ABSOLUTE 7.2 10*3/uL Normal 1.8-7.5 [facility] Comment on above: Performed By: #### L [id number] ####Farm Contractor: DOMENICA JARA ([phone])[facility] ([facility])[address] [place] [address] Neutrophils/100 WBC (Bld) 64.7 % Normal 38.0-82.0 [facility] Comment on above: Performed By: #### L [id number] ####Farm Contractor: DOMENICA JARA ([phone])[facility] ([facility])[address] [place] [address] NRBC 0.0 /100 WBCs Normal 0.0-2.0 [facility] Comment on above: Performed By: #### L [id number] ####Farm Contractor: DOMENICA JARA ([phone])[facility] ([facility])[address] [place] [address] Platelet mean volume (Bld) [Entitic vol] 9.1 fL Normal 9.0-12.7 [facility] Comment on above: Performed By: #### L [id number] ####Farm Contractor: DOMENICA JARA ([phone])[facility])[address] [place] [address] Platelets (Bld) [#/Vol] 345 10*3/uL Normal 140-440 [facility] Comment on above: Performed By: #### L [id number] ####Farm Contractor: DOMENICA JARA ([phone])[facility])[address] [place] [address] RBC (Bld) [#/Vol] 2.64 10*6/uL Low 4.40-5.90 [facility] Comment on above: Performed By: #### L [id number] ####Farm Contractor: DOMENICA JARA ([phone])[facility])[address] [place] [address] WBC (Bld) [#/Vol] 11.1 10*3/uL High 3.6-10.7 [facility] Comment on above: Performed By: #### L [id number] ####Farm Contractor: DOMENICA JARA ([phone])[facility])[address] [place] [address] Consulton 01-23-2025 Consult Normal [facility] Consult Normal [facility] HEMOGLOBIN AND HEMATOCRIT, B LOODon 01-23-2025 Hematocrit (Bld) [Volume fraction] 25.1 % Low 40.0-52.0 [facility] Comment on above: Performed By: #### L [id number], [id number] ####Farm Contractor: DOMENICA JARA ([phone])[facility])[address] [place] [address] Hemoglobin (Bld) [Mass/Vol] 7.9 g/dL Low 13.0-18.0 [facility] Comment on above: Performed By: #### L [id number], [id number] ####Farm Contractor: DOMENICA JARA ([phone])[facility] [place] [address] Hemoglobin (Bld) [Mass/Vol]o n 01-23-2025 Hematocrit (Bld) [Volume fraction] 25.1 % Low 40.0 - 52.0 % [facility] Interpretation and review of laboratory results Abnormal [facility] Laboratory - Chemistry and C hemistry - challengeon 01-23-2025 Glucose [Mass/Vol] 113 mg/dL High 70 - 100 mg/dL [facility] Glucose [Mass/Vol] 92 mg/dL 70 - 100 mg/dL [facility] Magnesium [Mass/Vol] 2.1 mg/dL 1.6 - 2 .6 mg/dL [facility] Laboratory - Coagulationon 0 01-23-2025 aPTT Coag (PPP) [Time] 30.6 s High 20.0 - 30.5 s [facility] INR Coag (PPP) [Relative time] 1.6 {INR} High 0.9 - 1.1 [facility] PT Coag (Bld) [Time] 16.1 s High 9.0 - 12.0 s [facility] PT Coag (Bld) [Time] 20 s High 9.0 - 12.0 s [facility] Laboratory - Hematology and Cell countson 01-23-2025 Hemoglobin (Bld) [Mass/Vol] 7.9 g/dL Low 13.0 - 18.0 g/dL [facility] MAGNESIUMon 01-23-2025 Magnesium [Mass/Vol] 2.1 mg/dL Normal 1.6-2.6 [facility] Comment on above: Result Comment: ARPAN Kaplan COMMENTS:Higher values can be expected in females during menses. Performed By: #### L [id number], [id number], [id number] ####Farm Contractor: DOMENICA JARA ([phone])[facility] ([facility])[address] [place] [address] Magnesium [Mass/Vol]on 01-23 Interpretation and review of laboratory results Normal [facility] No Panel Informationon 01-23 Interpretation and review of laboratory results Abnormal [facility] Interpretation and review of laboratory results Abnormal [facility] Interpretation and review of laboratory results Normal [facility] PHOSPHORUSon 01-23-2025 Phosphate [Mass/Vol] 4.5 mg/dL Normal 2.3-4.7 [facility] Comment on above: Performed By: #### L [id number], [id number], [id number] ####Farm Contractor: DOMENICA JARA ([phone])[facility])[address] [place] [address] PROTHROMBIN TIMEon 5 INR Coag (PPP) [Relative time] 2.0 {INR} High 0.9-1.1 [facility] Comment on above: Result Comment: Vaughn mmended Anticoagulant Therapy: SEE BELOW----- INR of 2.0 - 3.0 : - Prophylaxis of Venous Thrombosis (high-risk surgery) - Treatment of Venous Thrombosis - Treatment of Pulmonary Embolism (Includes tissue heart valves, Acute Myocardial Infarction to prevent systemic embolism, Valvular Heart Disease, and Atrial Fibrillation)----- INR of 2.5 - 3.5 : - Mechanical Prosthetic Valves (high risk) - If oral anticoagulant therapy is used to prevent Myocardial Infarction Performed By: #### L [id number] ####Farm Contractor: DOMENICA JARA ([phone])[facility])[address] [place] [address] PT Coag (PPP) [Time] 20.0 s High 9.0-12.0 [facility] Comment on above: Performed By: #### L [id number] ####Farm Contractor: DOMENICA JARA ([phone])[facility])[address] [place] [address] PROTIME AND APTTon 5 aPTT Coag (Bld) [Time] 30.6 s High 20.0-30.5 [facility] Comment on above: Performed By: #### L [id number] ####Farm Contractor: DOMENICA JARA ([id number])[facility])[address] [place] [address] INR Coag (PPP) [Relative time] 1.6 {INR} High 0.9-1.1 [facility] Comment on above: Result Comment: Vaughn mmended Anticoagulant Therapy: SEE BELOW----- INR of 2.0 - 3.0 : - Prophylaxis of Venous Thrombosis (high-risk surgery) - Treatment of Venous Thrombosis - Treatment of Pulmonary Embolism (Includes tissue heart valves, Acute Myocardial Infarction to prevent systemic embolism, Valvular Heart Disease, and Atrial Fibrillation)----- INR of 2.5 - 3.5 : - Mechanical Prosthetic Valves (high risk) - If oral anticoagulant therapy is used to prevent Myocardial Infarction Performed By: #### L [id number] ####Farm Contractor: DOMENICA JARA ([phone])[facility] ([facility])[address] [place] [address] PT Coag (PPP) [Time] 16.1 s High 9.0-12.0 [facility] Comment on above: Performed By: #### L [id number] ####Farm Contractor: DOMENICA JARA ([phone])[facility] ([employer])[address] [place] [address] PT Coag (Bld) [Time]on 01-23 INR Coag (PPP) [Relative time] 2 {INR} High 0.9 - 1.1 [facility] Interpretation and review of laboratory results Abnormal [facility] Phosphate [Moles/Vol]Ordered By: Jenni Romano on 01-23-2025 Interpretation and review of laboratory results Normal [facility] Phosphate [Mass/Vol] 4.5 mg/dL 2.3 - 4 .7 mg/dL [facility] Progress Noteon 01-23-2025 Progress [facility] Progress [facility] Progress [facility] Normal [facility] Progress Note Normal [facility] Progress [facility] Normal [facility] Progress Note [facility] Progress Note [facility] [id number] 01-22-2025 [id number] Normal [facility] [id number] Normal [facility] Basic metabolic 1998 panelOr dered By: Nathaly Dobson on 01-22-2025 Anion gap [Moles/Vol] 13 mmol/L 3 - 13 mmol/L [facility] Calcium [Mass/Vol] 9.8 mg/dL 8.4 - 10. 2 mg/dL [facility] Chloride [Moles/Vol] 94 mmol/L Low 98 - 10 7 mmol/L [facility] CO2 [Moles/Vol] 25 mmol/L 22 - 29 mmol/L [facility] Creatinine [Mass/Vol] 4.18 mg/dL High 0.72 - 1.25 mg/dL [facility] GFR/1.73 sq M.predicted (S/P/Bld) [Vol rate/Area] 15.6 mL/min Low - PINF [facility] Glucose [Mass/Vol] 70 mg/dL Low 74 - 100 mg/dL [facility] Interpretation and review of laboratory results Abnormal [facility] Potassium [Moles/Vol] 4.4 mmol/L 3.5 - 5.1 mmol/L [facility] Sodium [Moles/Vol] 132 mmol/L Low 136 - 145 mmol/L [facility] Urea nitrogen [Mass/Vol] 53 mg/dL High 9 - 23 mg/d L [facility] CBC W Auto Differential pane l (Bld)Ordered By: Tiffanie Chand on 01-22-2025 Basophils (Bld) [#/Vol] 0.1 10*3/uL 0.0 - 0.2 10*3/uL [facility] Basophils/100 WBC (Bld) 0.8 % 0.0 - 2.0 % [facility] Eosinophils (Bld) [#/Vol] 0.7 10*3/uL High 0.0 - 0.5 10*3/uL [facility] Eosinophils/100 WBC (Bld) 6.1 % High 0.0 - 6.0 % [facility] Erythrocyte distribution width (RBC) [Ratio] 18.4 % High 11.5 - 15.0 % [facility] Hematocrit (Bld) [Volume fraction] 23.9 % Low 40.0 - 52.0 % [facility] Hemoglobin (Bld) [Mass/Vol] 7.4 g/dL Low 13.0 - 18.0 g/dL [facility] Immature granulocytes (Bld) [#/Vol] 0.1 10*3/uL High NINF - 0.1 10*3/uL [facility] Immature granulocytes/100 WBC (Bld) 1.1 % 0.0 - 2.0 % [facility] Interpretation and review of laboratory results Abnormal [facility] Lymphocytes (Bld) [#/Vol] 1 10*3/uL 1.0 - 4.3 10*3/uL [facility] Lymphocytes/100 WBC (Bld) 9.7 % Low 15.0 - 45.0 % [facility] MCH (RBC) [Entitic mass] 27.5 pg 26. 0 - 34.0 pg [facility] MCHC (RBC) [Mass/Vol] 31 % 30.5 - 36.0 % [facility] MCV (RBC) [Entitic vol] 88.8 fL 77.0 - 99.0 fL [facility] Monocytes (Bld) [#/Vol] 1.5 10*3/uL High 0.0 - 0.9 10*3/uL [facility] Monocytes/100 WBC (Bld) 14.5 % High 5.0 - 13.0 % [facility] Neutrophils (Bld) [#/Vol] 7.2 10*3/uL 1.8 - 7.5 10*3/uL [facility] Neutrophils/100 WBC (Bld) 67.8 % 38.0 - 82.0 % [facility] Nucleated RBC/100 WBC (Bld) [Ratio] 0 % [facility] Platelet mean volume (Bld) [Entitic vol] 8.2 fL Low 9.0 - 12.7 fL [facility] Platelets (Bld) [#/Vol] 292 10*3/uL 140 - 440 10*3/uL [facility] RBC (Bld) [#/Vol] 2.69 10*6/uL Low 4.40 - 5.9 0 10*6/uL [facility] WBC (Bld) [#/Vol] 10.6 10*3/uL 3.6 - 10.7 10*3/uL [facility] CBC W Auto Differential pane l (Bld)on 01-22-2025 Basophils (Bld) [#/Vol] 0.1 10*3/uL 0.0 - 0.2 10*3/uL [facility] Basophils/100 WBC (Bld) 1.1 % 0.0 - 2.0 % [facility] Eosinophils (Bld) [#/Vol] 0.8 10*3/uL High 0.0 - 0.5 10*3/uL [facility] Eosinophils/100 WBC (Bld) 7.9 % High 0.0 - 6.0 % [facility] [employer] Erythrocyte distribution width (RBC) [Ratio] 18.6 % High 11.5 - 15.0 % [facility] Hematocrit (Bld) [Volume fraction] 25.1 % Low 40.0 - 52.0 % [facility] Hemoglobin (Bld) [Mass/Vol] 8 g/dL Low 13.0 - 18.0 g/dL [facility] Immature granulocytes (Bld) [#/Vol] 0.1 10*3/uL High NINF - 0.1 10*3/uL [facility] Immature granulocytes/100 WBC (Bld) 0.8 % 0.0 - 2.0 % [facility] Interpretation and review of laboratory results Abnormal [facility] Lymphocytes (Bld) [#/Vol] 1.5 10*3/uL 1.0 - 4.3 10*3/uL [facility] Lymphocytes/100 WBC (Bld) 14.1 % Low 15.0 - 45.0 % [facility] MCH (RBC) [Entitic mass] 27.7 pg 26. 0 - 34.0 pg [facility] MCHC (RBC) [Mass/Vol] 31.9 % 30.5 - 36.0 % [facility] MCV (RBC) [Entitic vol] 86.9 fL 77.0 - 99.0 fL [facility] Monocytes (Bld) [#/Vol] 1.5 10*3/uL High 0.0 - 0.9 10*3/uL [facility] Monocytes/100 WBC (Bld) 14 % High 5.0 - 13.0 % [facility] Neutrophils (Bld) [#/Vol] 6.6 10*3/uL 1.8 - 7.5 10*3/uL [facility] Neutrophils/100 WBC (Bld) 62.1 % 38.0 - 82.0 % [facility] Nucleated RBC/100 WBC (Bld) [Ratio] 0 % [facility] [employer] Platelet mean volume (Bld) [Entitic vol] 8.8 fL Low 9.0 - 12.7 fL [facility] [employer] Platelets (Bld) [#/Vol] 330 10*3/uL 140 - 440 10*3/uL [facility] RBC (Bld) [#/Vol] 2.89 10*6/uL Low 4.40 - 5.9 0 10*6/uL [facility] WBC (Bld) [#/Vol] 10.6 10*3/uL 3.6 - 10.7 10*3/uL [facility] CBC WITH AUTO DIFFERENTIALon 01-22-2025 Basophils (Bld) [#/Vol] 0.1 10*3/uL Normal 0.0-0.2 [facility] Comment on above: Performed By: #### L [id number] ####Farm Contractor: DOMENICA JARA ([id number])[facility])[address] [place] [address] Basophils/100 WBC (Bld) 0.8 % Normal 0.0-2.0 [facility] Comment on above: Performed By: #### L [id number] ####Farm Contractor: DOMENICA JARA ([phone])[facility] ([facility])[address] [place] [address] Eosinophils (Bld) [#/Vol] 0.7 10*3/uL High 0.0-0.5 [facility] Comment on above: Performed By: #### L [id number] ####Farm Contractor: DOMENICA JARA ([phone])[facility])[address] [place] [address] Eosinophils/100 WBC (Bld) 6.1 % High 0.0-6.0 [facility] Comment on above: Performed By: #### L [id number] ####Farm Contractor: DOMENICA JARA ([phone])[facility])[address] [place] [address] Erythrocyte distribution width (RBC) [Ratio] 18.4 % High 11.5-15.0 [facility] Comment on above: Performed By: #### L [id number] ####Farm Contractor: DOMENICA JARA ([id number])[facility])[address] [place] [address] Hematocrit (Bld) [Volume fraction] 23.9 % Low 40.0-52.0 [facility] Comment on above: Performed By: #### L [id number] ####Farm Contractor: DOMENICA JARA ([phone])[facility])[address] [place] [address] Hemoglobin (Bld) [Mass/Vol] 7.4 g/dL Low 13.0-18.0 [facility] Comment on above: Performed By: #### L [id number] ####Farm Contractor: DOMENICA JARA ([phone])[facility])[address] [place] [address] IMMATURE GRANS % 1.1 % Normal 0.0-2.0 [facility] Comment on above: Performed By: #### L [id number] ####Farm Contractor: DOMENICA JARA ([phone])[facility])[address] [place] [address] IMMATURE GRANS ABSOLUTE 0.1 10*3/uL High <0.1 [facility] Comment on above: Performed By: #### L [id number] ####Farm Contractor: DOMENICA JARA ([phone])[facility])[address] [place] [address] Lymphocytes (Bld) [#/Vol] 1.0 10*3/uL Normal 1.0-4.3 [facility] Comment on above: Performed By: #### L [id number] ####Farm Contractor: DOMENICA JARA ([id number])[facility])[address] [place] [address] Lymphocytes/100 WBC (Bld) 9.7 % Low 15.0-45.0 [facility] Comment on above: Performed By: #### L [id number] ####Farm Contractor: DOMENICA JARA ([phone])[facility])[address] [place] [address] MCH (RBC) [Entitic mass] 27.5 pg Normal 26.0-34.0 [facility] Comment on above: Performed By: #### L [id number] ####Farm Contractor: DOMENICA JARA ([phone])[facility] ([facility])[address] [place] [address] MCHC 31.0 % Normal 30.5-36.0 [facility] Comment on above: Performed By: #### L [id number] ####Farm Contractor: DOMENICA JARA ([phone])[facility] ([facility])[address] [place] [address] MCV (RBC) [Entitic vol] 88.8 fL Normal 77.0-99.0 [facility] Comment on above: Performed By: #### L [id number] ####Farm Contractor: DOMENICA JARA ([phone])[facility] ([facility])[address] [place] [address] Monocytes (Bld) [#/Vol] 1.5 10*3/uL High 0.0-0.9 [facility] Comment on above: Performed By: #### L [id number] ####Farm Contractor: DOMENICA JARA ([phone])[facility] ([facility])[address] [place] [address] Monocytes/100 WBC (Bld) 14.5 % High 5.0-13.0 [facility] Comment on above: Performed By: #### L [id number] ####Farm Contractor: DOMENICA JARA ([phone])[facility] ([facility])[address] [place] [address] NEUTROPHILS ABSOLUTE 7.2 10*3/uL Normal 1.8-7.5 [facility] Comment on above: Performed By: #### L [id number] ####Farm Contractor: DOMENICA JARA ([phone])[facility] ([facility])[address] [place] [address] Neutrophils/100 WBC (Bld) 67.8 % Normal 38.0-82.0 [facility] Comment on above: Performed By: #### L [id number] ####Farm Contractor: DOMENICA JARA ([phone])[facility] ([facility])[address] [place] [address] NRBC 0.0 /100 WBCs Normal 0.0-2.0 [facility] Comment on above: Performed By: #### L [id number] ####Farm Contractor: DOMENICA JARA ([phone])[facility] ([facility])[address] [place] [address] Platelet mean volume (Bld) [Entitic vol] 8.2 fL Low 9.0-12.7 [facility] Comment on above: Performed By: #### L [id number] ####Farm Contractor: DOMENICA JARA ([phone])[facility] ([facility])[address] [place] [address] Platelets (Bld) [#/Vol] 292 10*3/uL Normal 140-440 [facility] Comment on above: Performed By: #### L [id number] ####Farm Contractor: DOMENICA JARA ([id number])[facility] ([facility])[address] [place] [address] RBC (Bld) [#/Vol] 2.69 10*6/uL Low 4.40-5.90 [facility] Comment on above: Performed By: #### L [id number] ####Farm Contractor: DOMENICA JARA ([id number])[facility] ([facility])[address] [place] [address] WBC (Bld) [#/Vol] 10.6 10*3/uL Normal 3.6-10.7 [facility] Comment on above: Performed By: #### L [id number] ####Farm Contractor: DOMENICA JARA ([id number])[facility] ([facility])[address] [place] [address] Coagulation index TEG Qn (Bl d)Ordered By: Santhosh Acevedo on 01-22-2025 APTEM A10 72 mm High 50 - 70 mm [facility] APTEM A20 75 mm High 50 - 70 mm [facility] Clot angle TEG (Bld) [Angle] 82 High [facility] Clot formation.extrinsic coagulation system activated Rotational TEG (Bld) [Time] 200 s High 43 - 82 s [facility] Clot formation.extrinsic coagulation system activated Rotational TEG (Bld) [Time] 42 s Low 48 - 127 s [facility] Clot formation.extrinsic coagulation system activated Rotational TEG (Bld) [Time] 82 High [facility] Clot formation.extrinsic coagulation system activated Rotational TEG (Bld) [Time] 73 mm High 50 - 70 mm [facility] Clot formation.extrinsic coagulation system activated Rotational TEG (Bld) [Time] 76 mm High 52 - 70 mm [facility] Clot formation.extrinsic coagulation system activated.fibrinolysis suppressed Rotational TEG (Bld) [Time] 44 s Low 48 - 127 s [facility] Clot formation.extrinsic coagulation system activated.fibrinolysis suppressed Rotational TEG (Bld) [Time] 33 mm [facility] Clot formation.extrinsic coagulation system activated.fibrinolysis suppressed Rotational TEG (Bld) [Time] 35 mm [facility] Clot formation.extrinsic coagulation system activated.fibrinolysis suppressed Rotational TEG (Bld) [Time] 36 mm High 7 - 24 mm [facility] Clotting time.extrinsic coagulation system activated.fibrinolysis suppressed Rotational TEG (Bld) 232 s High 43 - 82 s [facility] Interpretation and review of laboratory results Abnormal [facility] Maximum clot firmness.extrinsic coagulation system activated.fibrinolysis suppressed Rotational TEG (Bld) [Length] 75 mm High 52 - 70 mm [facility] Hemoglobin (Bld) [Mass/Vol]o n 01-22-2025 Hematocrit (Bld) [Volume fraction] 24.5 % Low 40.0 - 52.0 % [facility] Interpretation and review of laboratory results Abnormal [facility] Hepatic function 2000 panelo n 01-22-2025 Albumin [Mass/Vol] 2.2 g/dL Low 3.5 - 5.0 g/dL [facility] ALP [Catalytic activity/Vol] 274 U/L High 40 - 150 U/L [facility] ALT [Catalytic activity/Vol] 44 U/L High NINF - 40 U/L [facility] AST [Catalytic activity/Vol] 51 U/L High NINF - 34 U/L [facility] Bilirubin [Mass/Vol] 0.9 mg/[facility]/dL [facility] Bilirubin.conjugated [Mass/Vol] 0.7 mg/dL High NINF - 0.5 mg/dL [facility] Protein [Mass/Vol] 7.6 g/dL 6.4 - 8.3 g/dL [facility] Laboratory - Chemistry and C hemistry - challengeon 01-22-2025 Glucose [Mass/Vol] 101 mg/dL High 70 - 100 mg/dL [facility] Glucose [Mass/Vol] 77 mg/dL 70 - 100 mg/dL [facility] Glucose [Mass/Vol] 81 mg/dL 70 - 100 mg/dL [facility] Magnesium [Mass/Vol] 2.6 mg/dL 1.6 - 2 .6 mg/dL [facility] Glucose [Mass/Vol] 82 mg/dL 70 - 100 mg/dL [facility] Laboratory - Coagulationon 0 01-22-2025 aPTT Coag (PPP) [Time] 42.7 s High 20.0 - 30.5 s [facility] INR Coag (PPP) [Relative time] 3.1 {INR} High 0.9 - 1.1 [facility] PT Coag (Bld) [Time] 31 s High 9.0 - 12.0 s [facility]ibrin D-dimer FEU (PPP) [Mass/Vol] 14.21 mg/L High NINF - 0.50 mg/L [facility] Fibrinogen Coag (PPP) [Mass/Vol] 436 mg/dL High 200 - 400 mg/dL [facility] Laboratory - CoagulationOrde red By: Maggy Lancaster on 01-22-2025 aPTT Coag (PPP) [Time] 48.1 s High 20.0 - 30.5 s [facility] INR Coag (PPP) [Relative time] 5.5 {INR} Critically high 0.9 - 1.1 [facility] PT Coag (Bld) [Time] 52.6 s High 9.0 - 12.0 s [facility] - CoagulationOrde red By: Michelle Olmstead on 01-22-2025 PT Coag (Bld) [Time] 75.4 s High 9.0 - 12.0 s [facility] - Hematology and Cell countson 01-22-2025 Hemoglobin (Bld) [Mass/Vol] 7.7 g/dL Low 13.0 - 18.0 g/dL [facility] [facility] Magnesium [Mass/Vol]on 01-22 Interpretation and review of laboratory results Normal [facility] No Panel Informationon 01-22 Interpretation and review of laboratory results Abnormal [facility] Interpretation and review of laboratory results Abnormal [facility] Blood Expiration Date [id number] S [facility] Dispens Status Transfused [employer] [facility] Product Blood Type 6200 [facility] PRODUCT CODE [id number] [facility] ABO A [facility] Unit Number [id number] [facility] Unit RH Positive [facility] Unit Volume 209 ml [facility] Interpretation and review of laboratory results Normal [facility] Interpretation and review of laboratory results Normal [facility] Interpretation and review of laboratory results Abnormal [facility] Interpretation and review of laboratory results Abnormal [facility] Interpretation and review of laboratory results Normal [facility] No Panel InformationOrdered By: Maggy Lancaster on 01-22-2025 Interpretation and review of laboratory results Abnormal [facility] Nursing Noteon 01-22-2025 Nursing Note Normal [facility] PROTIME AND APTTon aPTT Coag (Bld) [Time] 42.7 s High 20.0-30.5 [facility] Comment on above: Order Comment: Recom mend 15 to 30 minutes post transfusion Performed By: #### L [id number] ####Farm Contractor: DOMENICA JARA ([id number])[address] INR Coag (PPP) [Relative time] 3.1 {INR} High 0.9-1.1 [facility] Comment on above: Order Comment: Recom mend 15 to 30 minutes post transfusion Result Comment: Vaughn mmended Anticoagulant Therapy: SEE BELOW----- INR of 2.0 - 3.0 : - Prophylaxis of Venous Thrombosis (high-risk surgery) - Treatment of Venous Thrombosis - Treatment of Pulmonary Embolism (Includes tissue heart valves, Acute Myocardial Infarction to prevent systemic embolism, Valvular Heart Disease, and Atrial Fibrillation)----- INR of 2.5 - 3.5 : - Mechanical Prosthetic Valves (high risk) - If oral anticoagulant therapy is used to prevent Myocardial Infarction Performed By: #### L [id number] ####Farm Contractor: DOMENICA JARA ([id number])[facility])[address] [place] [address] PT Coag (PPP) [Time] 31.0 s High 9.0-12.0 [facility] Comment on above: Order Comment: Recom mend 15 to 30 minutes post transfusion Performed By: #### L [id number] ####Farm Contractor: DOMENICA JARA ([id number])[facility] ([facility])[address] [place] [address] aPTT Coag (Bld) [Time] 48.1 s High 20.0-30.5 [facility] Comment on above: Performed By: #### L [id number] ####Farm Contractor: DOMENICA JARA ([id number])[facility] ([facility])[address] [place] [address] INR Coag (PPP) [Relative time] 5.5 {INR} Critically high 0.9-1.1 [facility] Comment on above: Result Comment: Vaughn mmended Anticoagulant Therapy: SEE BELOW----- INR of 2.0 - 3.0 : - Prophylaxis of Venous Thrombosis (high-risk surgery) - Treatment of Venous Thrombosis - Treatment of Pulmonary Embolism (Includes tissue heart valves, Acute Myocardial Infarction to prevent systemic embolism, Valvular Heart Disease, and Atrial Fibrillation)----- INR of 2.5 - 3.5 : - Mechanical Prosthetic Valves (high risk) - If oral anticoagulant therapy is used to prevent Myocardial Infarction Performed By: #### L [id number] ####Farm Contractor: DOMENICA JARA ([id number])[facility] ([facility])[address] [place] [address] PT Coag (PPP) [Time] 52.6 s High 9.0-12.0 [facility] Comment on above: Performed By: #### L [id number] ####Farm Contractor: DOMENICA JARA ([id number])[facility] ([facility])[address] [place] [address] [place] PT Coag (Bld) [Time]Ordered By: Michelle Olmstead on 01-22-2025 INR Coag (PPP) [Relative time] 8.1 {INR} Critically high 0.9 - 1.1 [facility] Interpretation and review of laboratory results Abnormal [facility] Phosphate [Moles/Vol]on 12-27 Phosphate [Mass/Vol] 6.8 mg/dL High 2.3 - 4 .7 mg/dL [facility] Progress Noteon 01-22-2025 Progress Note Normal [facility] Progress Note Normal [facility] ZOË TRAUMA PANELon 025 APTEM A10 72 mm High 50-70 [facility] Comment on above: Performed By: #### L [id number] ####Farm Contractor: DOMENICA JARA ([id number])[facility] ([facility])[address] [place] [address] [place] APTEM A20 75 mm High 50-70 [facility] Comment on above: Performed By: #### L [id number] ####Farm Contractor: DOMENICA JARA ([id number])[facility] ([facility])[address] [place] [address] [place] APTEM ALPHA 82 DEGREES High 65-80 [facility] Comment on above: Performed By: #### L [id number] ####Farm Contractor: DOMENICA JARA ([id number])[facility] ([facility])[address] [place] [address] [place] APTEM CLOT FORMATION TIME 44 s Low 48-127 [facility] Comment on above: Performed By: #### L [id number] ####Farm Contractor: DOMENICA JARA ([id number])[facility] ([facility])[address] [place] [address] [place] APTEM CLOTTING TIME 232 s High 43-82 [facility] Comment on above: Performed By: #### L [id number] ####Farm Contractor: DOMENICA JARA ([id number])[facility])[address] [place] [address] [place] aPTT Coag (Bld) [Time]on aPTT Coag (PPP) [Time] 46 s High 20.0 - 30.5 s [facility] Basic metabolic 1998 panelOr dered By: Jarred José on 01-21-2025 Anion gap [Moles/Vol] 15 mmol/L High 3 - 13 mmol/L [facility] [employer] Calcium [Mass/Vol] 9.9 mg/dL 8.4 - 10. 2 mg/dL [facility] [employer] Chloride [Moles/Vol] 96 mmol/L Low 98 - 10 7 mmol/L [facility] CO2 [Moles/Vol] 24 mmol/L 22 - 29 mmol/L [facility] Creatinine [Mass/Vol] 2.99 mg/dL High 0.72 - 1.25 mg/dL [facility] GFR/1.73 sq M.predicted (S/P/Bld) [Vol rate/Area] 23.3 mL/min Low - PINF [facility] [employer] Glucose [Mass/Vol] 60 mg/dL Low 74 - 100 mg/dL [facility] Interpretation and review of laboratory results Abnormal [facility] Potassium [Moles/Vol] 4.3 mmol/L 3.5 - 5.1 mmol/L [facility] Sodium [Moles/Vol] 135 mmol/L Low 136 - 145 mmol/L [facility] Urea nitrogen [Mass/Vol] 46 mg/dL High 9 - 23 mg/d L [facility] CBC W Auto Differential pane l (Bld)on 01-21-2025 Basophils (Bld) [#/Vol] 0.1 10*3/uL 0.0 - 0.2 10*3/uL [facility] Basophils/100 WBC (Bld) 1 % 0.0 - 2.0 % [facility] Eosinophils (Bld) [#/Vol] 0.4 10*3/uL 0.0 - 0.5 10*3/uL [facility] Eosinophils/100 WBC (Bld) 3.8 % 0.0 - 6.0 % [facility] Erythrocyte distribution width (RBC) [Ratio] 18.6 % High 11.5 - 15.0 % [facility] Hematocrit (Bld) [Volume fraction] 27.3 % Low 40.0 - 52.0 % [facility] Hemoglobin (Bld) [Mass/Vol] 8.3 g/dL Low 13.0 - 18.0 g/dL [facility] Immature granulocytes (Bld) [#/Vol] 0.1 10*3/uL High NINF - 0.1 10*3/uL [facility] Immature granulocytes/100 WBC (Bld) 1.2 % 0.0 - 2.0 % [facility] [employer] Interpretation and review of laboratory results Abnormal [facility] Lymphocytes (Bld) [#/Vol] 1.7 10*3/uL 1.0 - 4.3 10*3/uL [facility] Lymphocytes/100 WBC (Bld) 16.5 % 15.0 - 45.0 % [facility] [employer] MCH (RBC) [Entitic mass] 27 pg 26. 0 - 34.0 pg [facility] [employer] MCHC (RBC) [Mass/Vol] 30.4 % Low 30.5 - 36.0 % [facility] MCV (RBC) [Entitic vol] 88.9 fL 77.0 - 99.0 fL [facility] Monocytes (Bld) [#/Vol] 1.4 10*3/uL High 0.0 - 0.9 10*3/uL [facility] Monocytes/100 WBC (Bld) 14.3 % High 5.0 - 13.0 % [facility] Neutrophils (Bld) [#/Vol] 6.4 10*3/uL 1.8 - 7.5 10*3/uL [facility] Neutrophils/100 WBC (Bld) 63.2 % 38.0 - 82.0 % [facility] Nucleated RBC/100 WBC (Bld) [Ratio] 0 % [facility] [employer] Platelet mean volume (Bld) [Entitic vol] 8.7 fL Low 9.0 - 12.7 fL [facility] Platelets (Bld) [#/Vol] 365 10*3/uL 140 - 440 10*3/uL [facility] RBC (Bld) [#/Vol] 3.07 10*6/uL Low 4.40 - 5.9 0 10*6/uL [facility] WBC (Bld) [#/Vol] 10.1 10*3/uL 3.6 - 10.7 10*3/uL [facility] CBC panel Auto (Bld)Ordered By: Piedad Alvarado on 01-21-2025 Erythrocyte distribution width (RBC) [Ratio] 18.6 % High 11.5 - 15.0 % [facility] Hematocrit (Bld) [Volume fraction] 25.3 % Low 40.0 - 52.0 % [facility] Hemoglobin (Bld) [Mass/Vol] 8 g/dL Low 13.0 - 18.0 g/dL [facility] Interpretation and review of laboratory results Abnormal [facility] MCH (RBC) [Entitic mass] 27.7 pg 26. 0 - 34.0 pg [facility] MCHC (RBC) [Mass/Vol] 31.6 % 30.5 - 36.0 % [facility] MCV (RBC) [Entitic vol] 87.5 fL 77.0 - 99.0 fL [facility] Platelet mean volume (Bld) [Entitic vol] 9.1 fL 9.0 - 12.7 fL [facility] Platelets (Bld) [#/Vol] 353 10*3/uL 140 - 440 10*3/uL [facility] RBC (Bld) [#/Vol] 2.89 10*6/uL Low 4.40 - 5.9 0 10*6/uL [facility] WBC (Bld) [#/Vol] 9.2 10*3/uL 3.6 - 10.7 10*3/uL [facility] Hemoglobin (Bld) [Mass/Vol]o n 01-21-2025 Hematocrit (Bld) [Volume fraction] 22.4 % Low 40.0 - 52.0 % [facility] Interpretation and review of laboratory results Abnormal [facility] Laboratory - Chemistry and C hemistry - challengeon 01-21-2025 Glucose [Mass/Vol] 86 mg/dL 70 - 100 mg/dL [facility] Glucose [Mass/Vol] 92 mg/dL 70 - 100 mg/dL [facility] Glucose [Mass/Vol] 92 mg/dL 70 - 100 mg/dL [facility] Glucose [Mass/Vol] 107 mg/dL High 70 - 100 mg/dL [facility] Glucose [Mass/Vol] 129 mg/dL High 70 - 100 mg/dL [facility] Glucose [Mass/Vol] 67 mg/dL Low 70 - 100 mg/dL [facility] Magnesium [Mass/Vol] 2.5 mg/dL 1.6 - 2 .6 mg/dL [facility] Glucose [Mass/Vol] 74 mg/dL 70 - 100 mg/dL [facility] Laboratory - CoagulationOrde red By: Treva Mcfarland on 01-21-2025 PT Coag (Bld) [Time] 73.5 s High 9.0 - 12.0 s [facility] - Hematology and Cell countson 01-21-2025 Hemoglobin (Bld) [Mass/Vol] 7.1 g/dL Low 13.0 - 18.0 g/dL [facility] Magnesium [Mass/Vol]on 01-21 Interpretation and review of laboratory results Normal [facility] No Panel Informationon 01-21 Interpretation and review of laboratory results Normal [facility] Interpretation and review of laboratory results Normal [facility] Interpretation and review of laboratory results Normal [facility] Interpretation and review of laboratory results Abnormal [facility] Interpretation and review of laboratory results Abnormal [facility] Interpretation and review of laboratory results Abnormal [facility] Interpretation and review of laboratory results Normal [facility] PT Coag (Bld) [Time]Ordered By: Treva Mcfarland on 01-21-2025 INR Coag (PPP) [Relative time] 7.9 {INR} Critically high 0.9 - 1.1 [facility] Interpretation and review of laboratory results Abnormal [facility] Phosphate [Moles/Vol]on 12-27 Interpretation and review of laboratory results Abnormal [facility] Phosphate [Mass/Vol] 5.3 mg/dL High 2.3 - 4 .7 mg/dL [facility] Basic metabolic 1998 panelon 01-20-2025 Anion gap [Moles/Vol] 15 mmol/L High 3 - 13 mmol/L [facility] Calcium [Mass/Vol] 9.2 mg/dL 8.4 - 10. 2 mg/dL [facility] Chloride [Moles/Vol] 98 mmol/L 98 - 10 7 mmol/L [facility] CO2 [Moles/Vol] 22 mmol/L 22 - 29 mmol/L [facility] Creatinine [Mass/Vol] 4.31 mg/dL High 0.72 - 1.25 mg/dL [facility] GFR/1.73 sq M.predicted (S/P/Bld) [Vol rate/Area] 15 mL/min Low - PINF [facility] Glucose [Mass/Vol] 68 mg/dL Low 74 - 100 mg/dL [facility] Interpretation and review of laboratory results Abnormal [facility] Potassium [Moles/Vol] 4.8 mmol/L 3.5 - 5.1 mmol/L [facility] Sodium [Moles/Vol] 135 mmol/L Low 136 - 145 mmol/L [facility] Urea nitrogen [Mass/Vol] 91 mg/dL High 9 - 23 mg/d L [facility] Blood type and Crossmatch pa freida (Bld)on 01-20-2025 ABO group Nom (Bld) O [facility] Blood group antibody screen GEL Ql Negative [facility] D Ag Ql (RBC) Negative [facility] CBC W Auto Differential pane l (Bld)Ordered By: Haley Vitale on 01-20-2025 Basophils (Bld) [#/Vol] 0.1 10*3/uL 0.0 - 0.2 10*3/uL [facility] Basophils/100 WBC (Bld) 1.1 % 0.0 - 2.0 % [facility] Eosinophils (Bld) [#/Vol] 0.5 10*3/uL 0.0 - 0.5 10*3/uL [facility] Eosinophils/100 WBC (Bld) 4.5 % 0.0 - 6.0 % [facility] Erythrocyte distribution width (RBC) [Ratio] 18.3 % High 11.5 - 15.0 % [facility] Hematocrit (Bld) [Volume fraction] 21.3 % Low 40.0 - 52.0 % [facility] Hemoglobin (Bld) [Mass/Vol] 6.6 g/dL Critically low 13.0 - 18.0 g/dL [facility] Immature granulocytes (Bld) [#/Vol] 0.1 10*3/uL High NINF - 0.1 10*3/uL [facility] Immature granulocytes/100 WBC (Bld) 1 % 0.0 - 2.0 % [facility] Interpretation and review of laboratory results Abnormal [facility] Lymphocytes (Bld) [#/Vol] 1.2 10*3/uL 1.0 - 4.3 10*3/uL [facility] Lymphocytes/100 WBC (Bld) 11.6 % Low 15.0 - 45.0 % [facility] MCH (RBC) [Entitic mass] 27.4 pg 26. 0 - 34.0 pg [facility] MCHC (RBC) [Mass/Vol] 31 % 30.5 - 36.0 % [facility] MCV (RBC) [Entitic vol] 88.4 fL 77.0 - 99.0 fL [facility] Monocytes (Bld) [#/Vol] 1.1 10*3/uL High 0.0 - 0.9 10*3/uL [facility] Monocytes/100 WBC (Bld) 10.1 % 5.0 - 13.0 % [facility] Neutrophils (Bld) [#/Vol] 7.5 10*3/uL 1.8 - 7.5 10*3/uL [facility] Neutrophils/100 WBC (Bld) 71.7 % 38.0 - 82.0 % [facility] Nucleated RBC/100 WBC (Bld) [Ratio] 0 % [facility] Platelet mean volume (Bld) [Entitic vol] 9 fL 9.0 - 12.7 fL [facility] Platelets (Bld) [#/Vol] 279 10*3/uL 140 - 440 10*3/uL [facility] RBC (Bld) [#/Vol] 2.41 10*6/uL Low 4.40 - 5.9 0 10*6/uL [facility] WBC (Bld) [#/Vol] 10.5 10*3/uL 3.6 - 10.7 10*3/uL [facility] CT Abdomen and Pelvis W cont rast Dimitrios 01-20-2025 [facility] RADIOLOGY [facility] RADIOLOGY [facility] Radiology Study observation (narrative) [facility] CT Abdomen and Pelvis W cont rast IVOrdered By: Karly Parker on 01-20-2025 [facility] Work Phone: Hemoglobin (Bld) [Mass/Vol]o n 01-20-2025 Hematocrit (Bld) [Volume fraction] 25.8 % Low 40.0 - 52.0 % [facility] Interpretation and review of laboratory results Abnormal [facility] Hematocrit (Bld) [Volume fraction] 25.7 % Low 40.0 - 52.0 % [facility] Interpretation and review of laboratory results Abnormal [facility] Hematocrit (Bld) [Volume fraction] 25.8 % Low 40.0 - 52.0 % [facility] Interpretation and review of laboratory results Abnormal [facility] Laboratory - Chemistry and C hemistry - challengeon 01-20-2025 Magnesium [Mass/Vol] 2.8 mg/dL High 1.6 - 2 .6 mg/dL [facility] Laboratory - Hematology and Cell countson 01-20-2025 Hemoglobin (Bld) [Mass/Vol] 8.3 g/dL Low 13.0 - 18.0 g/dL [facility] Hemoglobin (Bld) [Mass/Vol] 8.2 g/dL Low 13.0 - 18.0 g/dL [facility] Hemoglobin (Bld) [Mass/Vol] 8.2 g/dL Low 13.0 - 18.0 g/dL [facility] Magnesium [Mass/Vol]on 01-20 [facility] No Panel Informationon 01-20 Interpretation and review of laboratory results Abnormal [facility] Phosphate [Moles/Vol]on 12-27 Phosphate [Mass/Vol] 6.1 mg/dL High 2.3 - 4 .7 mg/dL [facility] No Panel Informationon 01-19 P [place] 69 degrees [facility] SC Interval 148 ms [facility] QRS [place] 93 degrees [facility] QRSD Interval 113 ms [facility] QT Interval 413 ms [facility] QTC Interval 515 ms [facility] T Wave [place] 87 degrees [facility] CV EPIPHANY [facility] 4h Troponin HS (Serial 3rd Troponin) 94 ng/L High NINF - 35 ng/L [facility] Interpretation and review of laboratory results Abnormal [facility] 2h Troponin HS (Serial 2nd Troponin) 106 ng/L High NINF - 35 ng/L [facility] Interpretation and review of laboratory results Abnormal [facility] Vital signson 01-19-2025 Heart rate 93 /min bpm [facility] Airwayon 10-12-2024 Rudolph German CRNA 10/12/2024 7:56 AM Airway Date/Time: 10/12/2024 7:38 AM Urgency: scheduled Airway not difficult General Information and Staff Patient location during procedure: Procedural Anesthesiologist: Vincent Wilson MD Resident/ORDNANCE TECHNICIAN: Rudolph German CRNA Performed: anesthesiologist Indications and Patient Condition Indications for airway management: airway protection and anesthesia Sedation level: Asleep Preoxygenated: yes Patient position: sniffing MILS maintained throughout Mask difficulty assessment: 1 - vent by mask Final Airway Details Final airway type: endotracheal airway Successful airway: ETT Cuffed: yes Successful intubation technique: direct laryngoscopy Endotracheal tube insertion site: oral Blade: Bustamante Blade size: #3 ETT size (mm): 8.0 Cormack-Lehane Classification: grade IIa - partial view of glottis Placement verified by: capnometry Measured from: lips ETT to lips (cm): 21 Number of attempts at approach: 1 [facility] Arterial Lineon 10-12-2024 Rudolph German CRNA 10/12/2024 7:49 AM Arterial Line: Date/Time: 10/12/2024 7:37 AM An arterial line was placed Procedure performed using ultrasound guidance - Image permanently retained with wire or catheter in vein.in the Procedural for the following indication(s): continuous blood pressure monitoring and blood sampling needed. A 20 gauge (size), 1 and 3/4 inch (length), Arrow (type) catheter was placed, into the Right radial artery, secured by Tegaderm and tape. Events: patient tolerated procedure well with no complications. Staffing Performed: JAMES Resident/ORDNANCE TECHNICIAN: Rudolph German CRNA [facility] Central Venous Lineon 2024 Rudolph German CRNA 10/12/2024 8:13 AM Central Venous Line: Date/Time: 10/12/2024 7:38 AM A central venous line was placed in the Procedural for the following indication(s): Sterility preparation included the following: provider hand hygiene performed prior to central venous catheter insertion, all 5 sterile barriers used (gloves, gown, cap, mask, large sterile drape) during central venous catheter insertion, antiseptic used during central venous catheter insertion and skin prep agent completely dried prior to procedure. The patient was placed in Trendelenburg position. Right The site was prepped with Chlorhexidine. Size: 8.5 Fr Catheter type: introducer with PA Catheter Number of Lumens: triple lumen During the procedure, the following specific steps were taken: target vein identified, needle advanced into vein and blood aspirated and guidewire advanced into vein. Procedure performed using ultrasound guidance - Image permanently retained with wire or catheter in vein. Sterile gel and probe cover used in ultrasound-guided central venous catheter insertion. Intravenous verification was obtained by ultrasound. Post insertion care included: all ports aspirated, all ports flushed easily, guidewire removed intact, Biopatch applied, line sutured in place and dressing applied. During the procedure the patient experienced: patient tolerated procedure well with no complications. A non-oximetric, 7.5 FR (size) Pulmonary Artery Catheter (PAC) was placed through the Introducer CVL in the right internal jugular vein. The PAC placement was confirmed by pressure tracing changes and secured at 49 cm (depth). The patient experienced the following events during the procedure: no complications. Staffing Performed: ORDNANCE TECHNICIAN Resident/ORDNANCE TECHNICIAN: Rudolph German CRNA [facility] No Panel Informationon 10-12 [facility] CT Head WO contraston 2024 No acute intracranial hemorrhage or large territorial infarct. 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 Pneumatized secretions within the maxillary sinuses may correspond with acute sinusitis in the appropriate clinical setting. Report Dictated on Electronically Signed By: Yvonne Abraham DO Electronically Signed Date/Time: 10/03/2024 2:14 PM [facility] Patient Name: JUN SNY[facility] 1965 [id number] Exam Date/Time: 10/03/2024 11:26 Procedure: CT HEAD WO IV CONTRAST Ordering Provider: FRANK NISHIT Reason For Exam: weakness CT HEAD: CLINICAL INDICATION: Weakness TECHNIQUE: Transaxial CT sequence performed through the head with 3 mm reconstruction. Sagittal and Coronal reconstruction images included. Dose reduction employed with automated exposure control. COMPARISON: None FINDINGS: Ventricles and Extra-axial spaces: Generalized enlargement of the ventricles and sulci. No abnormal extracerebral collection identified. Cerebral and cerebellar parenchyma: No regions of abnormal increased or decreased attenuation, mass lesion or evidence of acute infarct. Hemorrhage: None Brainstem: Normal Visualized Paranasal sinuses: Bilateral maxillary sinus pneumatized secretions. Mastoid air cells: Clear. Visualized Orbits: Normal Calvarium and skull base: Intact. 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 [facility] Yvonne Abraham DO - 10/03/2024 Patient Name: JUN SNYDER : 1965 [id number] Exam Date/Time: 10/03/2024 11:26 Procedure: CT HEAD WO IV CONTRAST Ordering Provider: FRANK NISHIT Reason For Exam: weakness CT HEAD: CLINICAL INDICATION: Weakness TECHNIQUE: Transaxial CT sequence performed through the head with 3 mm reconstruction. Sagittal and Coronal reconstruction images included. Dose reduction employed with automated exposure control. COMPARISON: None FINDINGS: Ventricles and Extra-axial spaces: Generalized enlargement of the ventricles and sulci. No abnormal extracerebral collection identified. Cerebral and cerebellar parenchyma: No regions of abnormal increased or decreased attenuation, mass lesion or evidence of acute infarct. Hemorrhage: None Brainstem: Normal Visualized Paranasal sinuses: Bilateral maxillary sinus pneumatized secretions. Mastoid air cells: Clear. Visualized Orbits: Normal Calvarium and skull base: Intact. 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 IMPRESSION: No acute intracranial hemorrhage or large territorial infarct. 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 Pneumatized secretions within the maxillary sinuses may correspond with acute sinusitis in the appropriate clinical setting. Report Dictated on Electronically Signed By: Yvonne Abraham DO Electronically Signed Date/Time: 10/03/2024 2:14 PM EST [facility] Radiology Study observation (narrative) [facility] alth CT Head WO contrastOrdered B y: Yvonne Abraham on 10-03-2024 [facility] [employer] Work Phone: XR Chest Single viewon 10-03 No focal consolidation or pulmonary edema. Report Dictated on Electronically Signed By: Bob Ken MD Electronically Signed Date/Time: 10/03/2024 12:22 PM EST [facility] Patient Name: JUN SNYDER : 1965 Exam Date/Time: 10/03/2024 12:12 Procedure: XR CHEST 1 VIEW Ordering Provider: FRANK NISHIT Reason For Exam: CHEST PAIN PORTABLE CHEST CLINICAL INDICATION: CHEST PAIN TECHNIQUE: Portable AP COMPARISON: 08/16/2023 FINDINGS: No focal consolidation or pulmonary edema. No pleural effusions or pneumothorax. The cardiac silhouette is mildly enlarged. The mediastinum is unremarkable. Degenerative change of the thoracic spine is noted. [facility] Bob Ken MD - 10/03/2024 Patient Name: JUN SNYDER : 1965 Exam Date/Time: 10/03/2024 12:12 Procedure: XR CHEST 1 VIEW Ordering Provider: FRANK NISHIT Reason For Exam: CHEST PAIN PORTABLE CHEST CLINICAL INDICATION: CHEST PAIN TECHNIQUE: Portable AP COMPARISON: 08/16/2023 FINDINGS: No focal consolidation or pulmonary edema. No pleural effusions or pneumothorax. The cardiac silhouette is mildly enlarged. The mediastinum is unremarkable. Degenerative change of the thoracic spine is noted. IMPRESSION: No focal consolidation or pulmonary edema. Report Dictated on Electronically Signed By: Bob Ken MD Electronically Signed Date/Time: 10/03/2024 12:22 PM EST [facility] Radiology Study observation (narrative) [facility] XR Chest Single viewOrdered By: Bob Ken on 10-03-2024 [facility] Work Phone: ECG 12 leadon 08-28-2024 Sinus Rhythm -Incomplete right bundle branch block. -Left atrial enlargement. Voltage criteria for LVH (S(V1)+R(V6) exceeds 3.50 mV). -ST depression -Seen with left ventricular hypertrophy (strain) -consider ischemia. [facility] CNPNon 04-12-2024 CNPN Telephone (TXCTGL) LILLIANJUN ([id number]) 1965 M Date Time Provider Department 04/12/24 KIDNEY TXP COORDINATORS TXCTGL During your visit today, we recorded the following information about you: Lanie Luis 04/12/2024 11:52 AM Signed I called patient to start the kidney referral intake process. Voicemail is full, sent a letter out. Lanie Allergies As of Date: 04/12/2024 Noted Allergy Reaction LISINOPRIL 02/14/2020 7 - Swelling Date Reviewed: 12/25/2021 Reviewed by: Michelle Streeter MA - Fully Assessed Prescriptions as of 04/12/2024 - peg 3350-Electrolytes (GOLYTELY) 236-22.74-6.74 -5.86 gram suspension Refer to printed patient instructions that will be mailed to you. - amLODIPine (NORVASC) 5 mg tablet Take 2 tablets by mouth once daily. - sevelamer carbonate (RENVELA) 800 mg tablet Take 3 tablets by mouth three times daily with meals. Problem List As Of Date: 04/12/2024 (None) Letter Text Encounter Status:Closed by LANIE LUIS on 04/12/24 [facility] 11-12-2023 Sinus Rhythm -Left atrial enlargement. IRBBB LVH with repolarization ABNORMAL [employer] ECG 12 leadOrdered By: Michaela Coombs on 11-12-2023 [employer] Work Phone: Basic metabolic 1998 panelon 08-17-2023 Anion gap [Moles/Vol] 15 mmol/L High 3 - 13 mmol/L [employer] Calcium [Mass/Vol] 8.7 mg/dL 8.4 - 10. 4 mg/dL [employer] Chloride [Moles/Vol] 94 mmol/L Low 98 - 10 7 mmol/L [employer] CO2 [Moles/Vol] 26 mmol/L 22 - 30 mmol/L [facility] [employer] Creatinine [Mass/Vol] 6.78 mg/dL High 0.66 - 1.25 mg/dL [facility] [employer] GFR/1.73 sq M.predicted MDRD (S/P/Bld) [Vol rate/Area] 8.8 mL/min/{1.73_m2} Low - PINF [facility] Comment on above: Calculation based on the Chronic Kidney Disease Epidemiology Collaboration (CKD-EPI) equation refit without adjustment for race Glucose [Mass/Vol] 102 mg/dL High 70 - 100 mg/dL [facility] [employer] Interpretation and review of laboratory results Abnormal [facility] [employer] Potassium [Moles/Vol] 5.0 mmol/L 3.5 - 5.1 mmol/L [facility] [employer] Sodium [Moles/Vol] 134 mmol/L Low 135 - 145 mmol/L [facility] [employer] Urea nitrogen [Mass/Vol] 46 mg/dL High 9 - 20 mg/d L [facility] [employer] Laboratory - Chemistry and C hemistry - challengeon 08-17-2023 Magnesium [Mass/Vol] 2.1 mg/dL 1.6 - 2 .3 mg/dL [facility] [employer] TSH Qn 0.981 m[IU]/L [facility] TSH Qn 1.190 m[IU]/L [facility] Troponin I.cardiac [Mass/Vol] 0.094 ng/mL High NINF - 0.034 ng/mL [facility] [employer] Magnesium [Mass/Vol]on 08-17 Interpretation and review of laboratory results Normal [facility] [employer] No Panel InformationOrdered By: Ruy Milton on 08-17-2023 P [place] degrees [employer] Work Phone: SC Interval ms [employer] Work Phone: QRS [place] 61 degrees [employer] Work Phone: QRSD Interval 114 ms [facility] [employer] Work Phone: QT Interval 364 ms [employer] Work Phone: QTC Interval 491 ms [employer] Work Phone: T Wave [place] -20 degrees [employer] Work Phone: [employer] Work Phone: No Panel Informationon 08-17 ATRIAL FIBRILLATION, V-RATE 88-139 INCOMPLETE RIGHT BUNDLE BRANCH BLOCK PROBABLE LEFT VENTRICULAR HYPERTROPHY Compared to ECG 10/19/2019 08:01:11 Sinus rhythm no longer present Atrial abnormality no longer present Electronically Signed On 08-17-2023 6:57:31 EST by Ruy Milton Ruy Fulton MD - 08/17/2023 IMPRESSION: ATRIAL FIBRILLATION, V-RATE 88-139 INCOMPLETE RIGHT BUNDLE BRANCH BLOCK PROBABLE LEFT VENTRICULAR HYPERTROPHY Compared to ECG 10/19/2019 08:01:11 Sinus rhythm no longer present Atrial abnormality no longer present Electronically Signed On 08-17-2023 6:57:31 EST by Ruy Milton [facility] TSH Qnon 08-17-2023 Interpretation and review of laboratory results Normal [facility] Interpretation and review of laboratory results Normal [facility] Troponin I.cardiac [Mass/Vol ]on 08-17-2023 Interpretation and review of laboratory results Abnormal [facility] Patients with high levels of Biotin oral intake (ie >5 mg/day) may have falsely decreased Troponin levels. [facility] US Heart TransthoracicOrdere d By: Jr Shah on 08-17-2023 Ao Root Index 1.58 cm/m2 [facility] Work Phone: Aortic Root 3.3 cm [facility] Work Phone: Ascending Aorta 3.3 cm [facility] Work Phone: Ascending Aorta Index 1.58 cm/m2 [facility] Work Phone: AV Area by Peak Velocity 1.1 cm2 [facility] Work Phone: AV Area by VTI 1.1 cm2 [facility] Work Phone: AV AT 97.05 ms [facility] Work Phone: AV Mean Gradient 34 mmHg [facility] Work Phone: AV Mean Velocity 2.7 m/s [facility] Work Phone: AV Peak Gradient 59 mmHg [facility] Work Phone: AV Peak Velocity 3.8 m/s [facility] Work Phone: AV Velocity Ratio 0.26 [facility] Work Phone: AV VTI 84.0 cm [facility] Work Phone: MALU/BSA Peak Velocity 0.5 cm2/m2 [facility] Work Phone: [phone] MALU/BSA VTI 0.5 cm2/m2 [facility] Work Phone: [phone] E/E' Lateral 11.44 [facility] Work Phone: [phone] E/E' Ratio (Averaged) 13.08 [facility] Work Phone: [phone] E/E' Septal 14.71 [facility] Work Phone: [phone] EF BP 62 % 55 - 100 % [facility] Work Phone: [phone] Est. RA Pressure 0 mmHg [facility] Work Phone: [phone] Fractional Shortening 2D 30 % 28 - 44 % [facility] Work Phone: [phone] Interpretation and review of laboratory results Abnormal [facility] Work Phone: [phone] IVC Diameter 1.1 cm [facility] Work Phone: [phone] IVSd 1.1 cm Abnormal 0.6 - 1.0 cm [facility] Work Phone: [phone] LA Diameter 4.0 cm [facility] Work Phone: [phone] LA Size Index 1.91 cm/m2 [facility] Work Phone: [phone] LA Volume 2C 66 mL Abnormal 18 - 58 mL [facility] Work Phone: [phone] LA Volume 4C 71 mL Abnormal 18 - 58 mL [facility] Work Phone: [phone] LA Volume A/L 75 mL [facility] Work Phone: LA Volume BP 69 mL Abnormal 18 - 58 mL [facility] Work [phone] LA Volume Index 2C 32 mL/m2 16 - 34 mL/m2 [facility] Work Phone: LA Volume Index 4C 34 mL/m2 16 - 34 mL/m2 [facility] Work Phone: LA Volume Index A/L 36 mL/m2 16 - 34 mL/m2 [facility] Work Phone: LA Volume Index BP 33 ml/m2 16 - 34 ml/m2 [facility] Work Phone: LA/AO Root Ratio 1.21 [facility] Work Phone: LV E' Lateral Velocity 9 cm/s [facility] Work Phone: LV E' Septal Velocity 7 cm/s [facility] Work Phone: LV EDV A2C 104 mL [facility] Work Phone: LV EDV A4C 89 mL [facility] Work Phone: LV EDV BP 97 mL 67 - 155 mL [facility] Work Phone: LV EDV Index A2C 50 mL/m2 [facility] Work Phone: LV EDV Index A4C 43 mL/m2 [facility] Work Phone: LV EDV Index BP 46 mL/m2 [facility] Work Phone: LV Ejection Fraction A2C 61 % [facility] Work Phone: LV Ejection Fraction A4C 64 % [facility] Work Phone: LV ESV A2C 41 mL [facility] Work Phone: LV ESV A4C 32 mL [facility] Work Phone: LV ESV BP 37 mL 22 - 58 mL [facility] Work Phone: LV ESV Index A2C 20 mL/m2 [facility] Work Phone: LV ESV Index A4C 15 mL/m2 [facility] Work Phone: LV ESV Index BP 18 mL/m2 [facility] Work Phone: LV Mass 2D 173.6 g 88 - 224 g [facility] Work Phone: LV Mass 2D Index 83.1 g/m2 49 - 115 g/m2 [facility] [employer] Work Phone: LV RWT Ratio 0.56 [facility] [employer] Work Phone: LVIDd 4.3 cm 4.2 - 5.9 cm [facility] [employer] Work Phone: LVIDd Index 2.06 cm/m2 [facility] [employer] Work Phone: LVIDs 3.0 cm [facility] [employer] Work Phone: LVIDs Index 1.44 cm/m2 [facility] [employer] Work Phone: LVOT Area 4.2 cm2 [facility] [employer] Work Phone: LVOT Cardiac Output 7.6 liter/minute [facility] [employer] Work Phone: LVOT Diameter 2.3 cm [facility] [employer] Work Phone: LVOT Mean Gradient 2 mmHg [facility] [employer] Work Phone: LVOT Peak Gradient 4 mmHg [facility] [employer] Work Phone: LVOT Peak Velocity 1.0 m/s [facility] [employer] Work Phone: LVOT Stroke Volume Index 46.5 mL/m2 [facility] [employer] Work Phone: LVOT SV 97.2 ml [facility] [employer] Work Phone: LVOT VTI 23.4 cm [facility] [employer] Work Phone: [phone] LVOT:AV VTI Index 0.28 [facility] [place] [facility] Work Phone: LVPWd 1.2 cm Abnormal 0.6 - 1.0 cm [facility] [employer] Work Phone: MV A Velocity 0.79 m/s [facility] Work Phone: MV Area by PHT 1.9 cm2 [facility] Work Phone: MV E Velocity 1.03 m/s [facility] Work Phone: [phone] MV E Wave Deceleration Time 278.6 ms [facility] [employer] Work Phone: [phone] MV E/A 1.30 [facility] Work Phone: [phone] MV Mean Gradient 3 mmHg [facility] Work Phone: [phone] MV Peak Gradient 6 mmHg [facility] Work Phone: [phone] MV PHT 113.0 ms [facility] Work Phone: [phone] RA Area 4C 79.9 mL [facility] Work Phone: [phone] RA Area 4C 77.7 mL [facility] Work Phone: [phone] RV Basal Dimension 4.6 cm [facility] Work Phone: [phone] RV Mid Dimension 3.3 cm [facility] Work Phone: [phone] RVSP 30 mmHg [facility] Work Phone: [phone] Sinotubular Junction 3.0 cm [facility] Work Phone: TR Max Velocity 2.72 m/s [employer] [facility] Work Phone: [phone] TR Peak Gradient 30 mmHg [facility] Work [phone] [facility] Work Phone: [phone] Heart Transthoracicon Aortic Valve: Trileaflet. Moderately thickened cusps. Moderately calcified cusps. Moderate stenosis of the aortic valve. AV mean gradient is 34 mmHg. AV peak velocity is 3.8 m/s. LVOT:AV VTI Index is 0.28. AV area by continuity VTI is 1.1 cm2. Left Ventricle: Left ventricle size is normal. Mildly increased wall thickness. Normal left ventricular systolic function. EF by 2D Simpsons Biplane is 62%. Normal wall motion. Normal diastolic function. Right Ventricle: Right ventricle size is normal. Normal systolic function. Mitral Valve: MV mean gradient is 3 mmHg. Mildly thickened leaflets. Mildly calcified leaflets. Annular calcification. Trace stenosis noted. MV mean gradient is 3 mmHg. MV area by PHT is 1.9 cm2. Tricuspid Valve: Normal RVSP. Est RA pressure is 0 mmHg. RVSP is 30 mmHg. Left Atrium: Left atrium is mildly dilated. Right Atrium: Right atrium is moderately dilated. IVC/SVC: IVC appears small and collapsed, suggesting hypovolemia. Left Ventricle Left ventricle size is normal. Mildly increased wall thickness. Normal left ventricular systolic function. EF by 2D Simpsons Biplane is 62%. Normal wall motion. Normal diastolic function. Right Ventricle Right ventricle size is normal. Normal systolic function. Left Atrium Left atrium is mildly dilated. Right Atrium Right atrium is moderately dilated. IVC/SVC IVC appears small and collapsed, suggesting hypovolemia. Mitral Valve MV mean gradient is 3 mmHg. Mildly thickened leaflets. Mildly calcified leaflets. Annular calcification. Trace regurgitation. Trace stenosis noted. MV mean gradient is 3 mmHg. MV area by PHT is 1.9 cm2. Tricuspid Valve Valve structure is normal. Trace regurgitation. Normal RVSP. Est RA pressure is 0 mmHg. RVSP is 30 mmHg. Aortic Valve Trileaflet. Moderately thickened cusps. Moderately calcified cusps. No regurgitation. Moderate stenosis of the aortic valve. AV mean gradient is 34 mmHg. AV peak velocity is 3.8 m/s. LVOT:AV VTI Index is 0.28. AV area by continuity VTI is 1.1 cm2. Pulmonic Valve Valve structure is normal. No regurgitation. Ascending Aorta Normal sized sinuses of Valsalva and ascending aorta. Pericardium No pericardial effusion. Septum No interatrial shunt visualized on color Doppler. Study Details Image quality: good. Heart rate: 76 bpm. Blood pressure: 108/56 mmHg. The underlying ECG rhythm was sinus rhythm. No contrast was given. CV CPACS Vital signsOrdered By: Anthony Milton on 08-17-2023 Heart rate 109 /min bpm [employer] Work Phone: Basic metabolic 1998 panelon 08-16-2023 Anion gap [Moles/Vol] 15 mmol/L High 3 - 13 mmol/L [employer] Calcium [Mass/Vol] 9.1 mg/dL 8.4 - 10. 4 mg/dL [employer] Chloride [Moles/Vol] 93 mmol/L Low 98 - 10 7 mmol/L [employer] CO2 [Moles/Vol] 25 mmol/L 22 - 30 mmol/L [employer] Creatinine [Mass/Vol] 6.01 mg/dL High 0.66 - 1.25 mg/dL [employer] GFR/1.73 sq M.predicted MDRD (S/P/Bld) [Vol rate/Area] 10.2 mL/min/{1.73_m2} Low - PINF [facility] Comment on above: Calculation based on the Chronic Kidney Disease Epidemiology Collaboration (CKD-EPI) equation refit without adjustment for race Glucose [Mass/Vol] 110 mg/dL High 70 - 100 mg/dL [facility] Interpretation and review of laboratory results Abnormal [facility] Potassium [Moles/Vol] 4.5 mmol/L 3.5 - 5.1 mmol/L [facility] Sodium [Moles/Vol] 133 mmol/L Low 135 - 145 mmol/L [facility] Urea nitrogen [Mass/Vol] 40 mg/dL High 9 - 20 mg/d L [facility] CBC W Auto Differential pane l (Bld)Ordered By: Aric Montejo on 08-16-2023 Basophils (Bld) [#/Vol] 0.1 10*3/uL 0.0 - 0.2 10*3/uL [facility] Basophils/100 WBC (Bld) 1.3 % 0.0 - 2.0 % [facility] Eosinophils (Bld) [#/Vol] 0.5 10*3/uL 0.0 - 0.5 10*3/uL [facility] Eosinophils/100 WBC (Bld) 5.1 % 1.0 - 6.0 % [facility] Erythrocyte distribution width (RBC) [Ratio] 14.7 % High 11.5 - 14.5 % [facility] Hematocrit (Bld) [Volume fraction] 41.6 % 40.0 - 52.0 % [facility] Hemoglobin (Bld) [Mass/Vol] 14.5 g/dL 13.0 - 18.0 g/dL [facility] Interpretation and review of laboratory results Abnormal [facility] Lymphocytes (Bld) [#/Vol] 1.3 10*3/uL 1.0 - 4.3 10*3/uL [facility] Lymphocytes/100 WBC (Bld) 14.2 % Low 20.0 - 40.0 % [facility] MCH (RBC) [Entitic mass] 31.5 pg 26. 0 - 34.0 pg [facility] MCHC (RBC) [Mass/Vol] 34.8 % 32.0 - 36.0 % [facility] MCV (RBC) [Entitic vol] 90.5 fL 80.0 - 98.0 fL [facility] Monocytes (Bld) [#/Vol] 1.3 10*3/uL High 0.0 - 0.8 10*3/uL [facility] Monocytes/100 WBC (Bld) 13.5 % High 2.0 - 10.0 % [facility] Neutrophils (Bld) [#/Vol] 6.2 10*3/uL 1.8 - 7.0 10*3/uL [facility] Neutrophils/100 WBC (Bld) 65.9 % 40.0 - 80.0 % [facility] Nucleated RBC/100 WBC (Bld) [Ratio] 0.1 % [facility] [employer] Platelet mean volume (Bld) [Entitic vol] 7.3 fL Low 7.4 - 12.4 fL [facility] Platelets (Bld) [#/Vol] 254 10*3/uL 140 - 440 10*3/uL [facility] RBC (Bld) [#/Vol] 4.60 10*6/uL 4.40 - 5.9 0 10*6/uL [facility] WBC (Bld) [#/Vol] 9.5 10*3/uL 3.6 - 10.7 10*3/uL [facility] Laboratory - Chemistry and C hemistry - challengeon 08-16-2023 Troponin I.cardiac [Mass/Vol] 0.062 ng/mL High [facility] - 0.034 ng/mL [facility] Troponin I.cardiac [Mass/Vol] 0.037 ng/mL High [facility] - 0.034 ng/mL [facility] Troponin I.cardiac [Mass/Vol ]on 08-16-2023 Interpretation and review of laboratory results Abnormal [facility] Patients with high levels of Biotin oral intake (ie >5 mg/day) may have falsely decreased Troponin levels. [facility] Interpretation and review of laboratory results Abnormal [facility] Patients with high levels of Biotin oral intake (ie >5 mg/day) may have falsely decreased Troponin levels. [facility] XR Chest Single viewon 08-16 1. Cardiomegaly. 2. No other acute findings. Report Dictated on Electronically Signed By: Justo Milan MD Electronically Signed Date/Time: 08/16/2023 6:42 PM [facility] Patient Name: JUN SNYDER : 1965 Exam Date/Time: 08/16/2023 18:39 Procedure: XR CHEST 1 VIEW Ordering Provider: GRANADOS SHAYA Reason For Exam: CHEST PAIN CHEST PORTABLE CLINICAL INDICATION: CHEST PAIN TECHNIQUE: Portable chest x-ray(s). COMPARISON: September,. FINDINGS: Mild cardiomegaly, stable. Lungs are grossly clear. No significant vascular congestion. No apparent pneumothorax. Bony thorax grossly unremarkable. [facility] Justo Milan MD - 08/16/2023 Patient Name: JUN SNYDER : 1965 Exam Date/Time: 08/16/2023 18:39 Procedure: XR CHEST 1 VIEW Ordering Provider: GRANADOS SHAYA Reason For Exam: CHEST PAIN CHEST PORTABLE CLINICAL INDICATION: CHEST PAIN TECHNIQUE: Portable chest x-ray(s). COMPARISON: September,. FINDINGS: Mild cardiomegaly, stable. Lungs are grossly clear. No significant vascular congestion. No apparent pneumothorax. Bony thorax grossly unremarkable. IMPRESSION: 1. Cardiomegaly. 2. No other acute findings. Report Dictated on Electronically Signed By: Justo Milan MD Electronically Signed Date/Time: 08/16/2023 6:42 PM EST [facility] Radiology Study observation (narrative) [facility] alth XR Chest Single viewOrdered By: Justo Milan on 08-16-2023 [facility] Work Phone: POTASSIUM BLDon 12-17-2022 Potassium [Moles/Vol] 7.6 mmol/L Critically high 3.7-5.1 [facility] Comment on above: Order Comment: Speci men Type: BLOOD SPECIMEN Ordering Facility: [facility] Address: , , Performed By: #### K 1 #### [facility] CLIA [id number] [address] [place] [address] [place] POTASSIUM BLDon 08-19-2022 Potassium [Moles/Vol] 7.0 mmol/L Critically high 3.7-5.1 [facility] Comment on above: Order Comment: Dominick richards Type: BLOOD SPECIMEN Ordering Facility: [facility] Address: , , Performed By: #### K 1 #### [facility] CLIA [id number] [address] POTASSIUM BLDon 06-16-2022 Potassium [Moles/Vol] 6.3 mmol/L Critically high 3.7-5.1 [facility] Comment on above: Order Comment: Dominick richards Type: BLOOD SPECIMEN Ordering Facility: [facility] Address: , , Performed By: #### K 1 #### [facility] CLIA [id number] [address] OF [place] [facility] 05-12-2022 Hemoglobin (Bld) [Mass/Vol] 8.4 g/dL Low 13.0-17.0 [facility] Comment on above: Order Comment: Dominick richards Type: BLOOD SPECIMEN [facility] Address: , , Performed By: #### 7 18-7 #### [facility] CLIA [id number] [address] OF [facility] XA Special Angiography Proce [facility] 09-15-2021 XA Special Angiography Procedure Patient Name: JUN SNYDER Special Procedures ACCESSION EXAM DATE/TIME PROCEDURE ORDERING PROVIDER [id number] 09/15/2021 11:10 EST XA Special Angiography MD DA, CINDY Procedure BISI Reason For Exam (XA Special Angiography Procedure) FISTULAGRAM / TINGLING AND NUMBNESS OF FINGERS Report EXAMINATION: Left upper extremity fistulogram. EXAM DATE and TIME: 09/15/2021 11:10 AM EST INDICATION: FISTULAGRAM / TINGLING AND NUMBNESS OF FINGERS ADDITIONAL INFORMATION: 55-year-old male with a left upper extremity fistula and numbness and tingling in the left hand presents for fistulogram with possible endovascular intervention COMPARISON: None available at the time of interpretation INFORMED CONSENT: Written informed consent was obtained. The procedure, risks, benefits, and alternatives were discussed. All questions were answered. TIMEOUT: Physician-led timeout was conducted documenting correct patient, procedure, site, fire risk, antibiotics and allergies. COMPLICATIONS: None. ESTIMATED BLOOD LOSS: Less than 10 mL. MEDICATIONS: Antibiotics: None. Contrast dose: Approximately 23 mL of Isovue-300 were injected into the venous system during the course of the procedure. STERILE TECHNIQUE: All elements of maximal sterile technique were applied: cap, mask, sterile gown, proper hand hygiene including sterile gloves, a large sterile sheet, and hospital-approved cutaneous antisepsis at the site (2% chlorhexidine). A sterile probe cover and sterile gel were also used to ensure ultrasound sterility. ANESTHESIA/SEDATION: Local. FLUOROSCOPY: Fluoroscopy time: 1.1 minutes Fluoroscopy dose: 17 mGy Angiographic runs: 2 Fluoroscopic spot images: 0 Fluoroscopic saved images were obtained. These images do NOT add additional exposure to ionizing radiation and were captured electronically from the imaging Special Procedures Report chain. PROCEDURE/TECHNIQUE: The patient was placed in the supine position on the fluoroscopic table. The left upper extremity was then prepped and draped in the usual aseptic fashion. Ultrasound surveillance of the fistula was performed with several grayscale and color Doppler images saved and stored in a digital archive. Local anesthesia was then achieved with 1% lidocaine solution. A 21-gauge microaccess needle was used to gain access to the left upper extremity fistula under ultrasound guidance. A 0.018 inch microwire was then passed through the needle and the needle was removed. A 3 Pakistani dilator was advanced over the wire and the wire was removed. A contrast injection was performed to demonstrate intraluminal positioning of the dilator tip. Subsequently, DSA was performed, imaging from the dilator tip through to the central circulation. Subsequently, the dilator was removed and local hemostasis was achieved with manual compression. A sterile dressing was applied. The patient tolerated the procedure well without immediate complication and was transferred from the interventional suite in stable condition. FINDINGS: Ultrasound surveillance of the left upper extremity brachiocephalic fistula demonstrates wide patency of the fistula and defines the pathway for needle passage. Spot ultrasound images saved using both grayscale and color Doppler imaging also show patency of the arterial anastomosis, as well as patency of the brachial artery proximal and distal to the arterial anastomosis. DSA performed imaging from the dilator tip through to the central circulation demonstrates wide patency of the dialysis circuit. A couple of collateralized vessels are present. No evidence of central stenosis. A palpable thrill was present near the arterial anastomosis before, during and after procedure termination. IMPRESSION: Technically successful uncomplicated left upper extremity fistulogram. There is wide patency of the brachial artery proximal to and distal to the arterial anastomosis. No current indication for endovascular intervention. A palpable thrill was present near the arterial anastomosis before, during and after procedure termination. Report Dictated on Workstation: [id number] Final Dictating Physician: MD VICENTE CHRISTOPHER Signed Date and Time: 09/15/2021 12:15 pm Signed by: MD VICENTE CHRISTOPHER Transcribed Date and Time: 09/15/2021 12:16 Normal [facility] IR DIALYSIS INJ W/ANGIOPLAST Yon 11-22-2020 IR DIALYSIS INJ W/ANGIOPLASTY Final Report DATE OF EXAM: Nov 22 2020 2:02PM [facility] 0944 - IR DIALYSIS INJ W/ANGIOPLASTY / PROCEDURE REASON: esrd Physician Interpretation EXAM TITLE: LEFT ARM FISTULOGRAM WITH BALLOON DILATION OF STENOTIC LESION. DATE:November 22, 2020 CLINICAL INDICATION/HISTORY: 55-year-old outpatient referred by the chronic dialysis center for difficulty accessing the left upper arm AV fistula and some recent extravasation. TECHNIQUE: Consent was obtained from the patient at which point he was placed on the fluoroscopy table where the left upper arm was sterilely prepped and draped with maximal barrier precaution. Timeout protocols were followed. Lidocaine local anesthesia used over the distal fistula just proximal to the antecubital level which allowed needle access to the fistula. This was initially converted to a 6 Pakistani sheath and later converted to a 7 Pakistani sheath. Reflux fistulogram for done in several views, none of which showed any stenosis at the arterial anastomosis or distal most part of the cephalic AV fistula. Outflow fistulogram was then performed through the upper arm as well as the shoulder region and the chest. Moderately severe stenosis was seen in the proximal upper arm with some sidebranches developing distal to the stenosis. This year was then crossed with a Bentson wire and initial balloon angioplasty was done to burst levels with a 6 x 40 mm [place] balloon. This gave minimal improvement. We then exchanged the 6 mm balloon for an 8 x 40 mm [place] balloon. This gave more moderate improvement. At that point we changed the 6 Pakistani sheath to a 7 Pakistani sheath and placed a 9 x 40 mm conquest balloon across this lesion in the cephalic vein distal to the humeral head. The 9 mm balloon was taken to nominal levels. Good results although not perfect results were noted at that time. Excellent flow is seen going through the graft in the more distal sidebranches seem to have less flow as well. We terminated procedure at that point. Patient was notified that this could be an area of stenosis that could be recurrent and appeared to be most likely related to valvular tissue in that region. Not likely a site of puncture trauma. With the 7 Pakistani sheath removed pressure was held on the puncture site for a few minutes until hemostasis was complete. Tip stop was then applied and the patient was discharged in good condition. FINDINGS: Single outflow lesion in the venous part of the AV fistula just distal to the humeral head. Of note fluoroscopy time was 1.8 minutes with an MG Y of 21. Approximately 31 cc of Visipaque 270 were used during the study. IMPRESSION: Successful left upper arm fistulogram with balloon dilation of stenotic lesion as noted above. Environmental Services Director: PSCB Transcribe Date/Time: Nov 22 2020 2:07P Dictated by : VINCENT DE LA ROSA MD This examination was interpreted and the report reviewed and electronically signed by: VINCENT DE LA ROSA MD on Nov 22 2020 2:13PM EST Normal [facility] Patient Name: GLENN SNYDER Special Procedures ACCESSION EXAM DATE/TIME PROCEDURE ORDERING PROVIDER [id number] 10/17/2020 08:27 EST XA Special Angiography MD DA, CINDY Procedure BISI Reason For Exam (XA Special Angiography Procedure) Tunneled HD removal. N18.6 ESRD Report CLINICAL HISTORY: Dialysis catheter no longer needed Procedures: Right tunneled dialysis catheter removal Physician: Dr. Ken MEDICATIONS: None EBL: Minimal. Contrast: None. Specimen sent: None COMPLICATIONS: None Procedural details: All of the risk, benefits, and alternative treatments were explained to the patient and informed consent was obtained and documented. The patient was brought into the waiting room and placed in a sitting position. The patient's existing right-sided tunneled dialysis catheter and surrounding skin were prepped and draped in the usual sterile fashion. Using intermittent traction, the tunneled dialysis catheter was then removed in its entirety. Hemostasis was obtained using manual pressure. The patient tolerated the procedure well. Findings: Right-sided tunneled dialysis catheter removed in its entirety. IMPRESSION: Successful uncomplicated right tunneled dialysis catheter removal. Report Dictated on --- Final --- Dictating Physician: MD KEN KEVIN Signed Date and Time: 10/17/2020 1:04 pm Signed by: MD KEN KEVIN Transcribed Date and Time: 10/17/2020 1:05 [facility] Incoming Radiology Results From [facility] - 10/17/2020 1:05 PM EST Patient Name: GLENN SNYDER Special Procedures ACCESSION EXAM DATE/TIME PROCEDURE ORDERING PROVIDER [id number] 10/17/2020 08:27 EST XA Special Angiography MD DA, CINDY Procedure BISI Reason For Exam (XA Special Angiography Procedure) Tunneled HD removal. N18.6 ESRD Report CLINICAL HISTORY: Dialysis catheter no longer needed Procedures: Right tunneled dialysis catheter removal Physician: Dr. Ken MEDICATIONS: None EBL: Minimal. Contrast: None. Specimen sent: None COMPLICATIONS: None Procedural details: All of the risk, benefits, and alternative treatments were explained to the patient and informed consent was obtained and documented. The patient was brought into the waiting room and placed in a sitting position. The patient's existing right-sided tunneled dialysis catheter and surrounding skin were prepped and draped in the usual sterile fashion. Using intermittent traction, the tunneled dialysis catheter was then removed in its entirety. Hemostasis was obtained using manual pressure. The patient tolerated the procedure well. Findings: Right-sided tunneled dialysis catheter removed in its entirety. IMPRESSION: Successful uncomplicated right tunneled dialysis catheter removal. Report Dictated on --- Final --- Dictating Physician: MD KEN KEVIN Signed Date and Time: 10/17/2020 1:04 pm Signed by: MD KEN KEVIN Transcribed Date and Time: 10/17/2020 1:05 [facility] [place] XA Special Angiography Proce dureon 10-17-2020 XA Special Angiography Procedure Patient Name: GLENN SNYDER Special Procedures ACCESSION EXAM DATE/TIME PROCEDURE ORDERING PROVIDER [id number] 10/17/2020 08:27 EST XA Special Angiography MD DA, KUSUMREYNALDO Procedure BISI Reason For Exam (XA Special Angiography Procedure) Tunneled HD removal. N18.6 ESRD Report CLINICAL HISTORY: Dialysis catheter no longer needed Procedures: Right tunneled dialysis catheter removal Physician: Dr. Ken MEDICATIONS: None EBL: Minimal. Contrast: None. Specimen sent: None COMPLICATIONS: None Procedural details: All of the risk, benefits, and alternative treatments were explained to the patient and informed consent was obtained and documented. The patient was brought into the waiting room and placed in a sitting position. The patient's existing right-sided tunneled dialysis catheter and surrounding skin were prepped and draped in the usual sterile fashion. Using intermittent traction, the tunneled dialysis catheter was then removed in its entirety. Hemostasis was obtained using manual pressure. The patient tolerated the procedure well. Findings: Right-sided tunneled dialysis catheter removed in its entirety. IMPRESSION: Successful uncomplicated right tunneled dialysis catheter removal. Report Dictated on Final Dictating Physician: MD KEN KEVIN Signed Date and Time: 10/17/2020 1:04 pm Signed by: MD KEN KEVIN Transcribed Date and Time: 10/17/2020 1:05 Normal [facility] Basic Metabolic Panelon - Anion gap [Moles/Vol] 17 mmol/L Normal 9-18 [facility] Comment on above: Performed By: #### B MP #### [address] [address] Calcium [Mass/Vol] 9.1 mg/dL Normal 8.5-10.2 [facility] Comment on above: Performed By: #### B MP #### [address] [address] Chloride [Moles/Vol] 100 mmol/L Normal 97-105 [facility] Comment on above: Performed By: #### B MP #### [facility] [address] [place], [place] [address] CO2 Blood 18 mmol/L Low 22-30 [facility] Comment on above: Performed By: #### B MP #### [facility] [address] [place], [place] [address] Creatinine [Mass/Vol] 13.39 mg/dL High 0.73-1.22 [facility] Comment on above: Performed By: #### B MP #### [facility] [address] [place], [place] [address] Glucose [Mass/Vol] 83 mg/dL Normal 74-99 [facility] Comment on above: Result Comment: The [place] Diabetes Association (ADA) provides guidance for cutoff values for fasting glucose and random glucose. The ADA defines fasting as no caloric intake for at least 8 hours.Fasting plasma glucose results between 100 to 125 mg/dL indicate increased risk for diabetes (prediabetes). Fasting plasma glucose results greater than or equal to 126 mg/dL meet the criteria for diagnosis of diabetes. In the absence of unequivocal hyperglycemia, results should be confirmed by repeat testing. In a patient with classic symptoms of hyperglycemia or hyperglycemic crisis, random plasma glucose results greater than or equal to 200 mg/dL meet the criteria for diagnosis of diabetes. Reference: Standards of Medical Care in Diabetes 2016; [place] Diabetes Association. Diabetes Care. 2016;39(Suppl 1). Performed By: #### B MP #### [facility] [address] [place], [place] [address] Potassium [Moles/Vol] 4.8 mmol/L Normal 3.7-5.1 [facility] Comment on above: Performed By: #### B MP #### [facility] [address] [place], [place] [address] Sodium [Moles/Vol] 135 mmol/L Low 136-144 [facility] Comment on above: Performed By: #### B MP #### [facility] [address] [place], [place] [address] Urea nitrogen [Mass/Vol] 61 mg/dL High 9-24 [facility] Comment on above: Performed By: #### B MP #### [facility] [address] [place] [address] Hemogramon 05-10-2020 Erythrocyte distribution width (RBC) [Ratio] 12.7 % Normal 11.6-14.4 [facility] Comment on above: Performed By: #### C BC1 #### [facility] [address] [place] [address] Hematocrit (Bld) [Volume fraction] 28.4 % Low 40.1-51.0 [facility] Comment on above: Performed By: #### C BC1 #### [facility] [address] [place] [address] Hemoglobin (Bld) [Mass/Vol] 9.2 g/dL Low 13.7-17.5 [facility] Comment on above: Performed By: #### C BC1 #### [place] [address] MCH (RBC) [Entitic mass] 30.6 pg Normal 25.7-32.2 [facility] Comment on above: Performed By: #### C BC1 #### [facility] [address] [place] [address] MCHC (RBC) [Mass/Vol] 32.4 % Normal 32.3-36.5 [facility] Comment on above: Performed By: #### C BC1 #### [facility] [address] [place] [address] MCV (RBC) [Entitic vol] 94.4 fL Normal 83.2-95.6 [facility] Comment on above: Performed By: #### C BC1 #### [facility] [address] [place] [address] Platelet mean volume (Bld) [Entitic vol] 10.1 fL Normal 8.7-12.0 [facility] Comment on above: Performed By: #### C BC1 #### [facility] [address] [place] [id number] Platelets (Bld) [#/Vol] 278 thou/cmm Normal 141-365 [facility] Comment on above: Performed By: #### C BC1 #### [facility] [address] [place], [place] [address] RBC (Bld) [#/Vol] 3.01 mil/cmm Low 4.63-6.08 [facility] Comment on above: Performed By: #### C BC1 #### [facility] [address] [place], [place] [address] RDW SD 43.8 fl Normal 36.1-45.8 [facility] Comment on above: Performed By: #### C BC1 #### [facility] [address] [place], [place] [address] WBC (Bld) [#/Vol] 8.58 thou/cmm Normal 4.23-9.07 [facility] Comment on above: Performed By: #### C BC1 #### [facility] [address] [place], [place] [address] MDRD GFRon 05-10-2020 GFR/1.73 sq M predicted among non-blacks MDRD (S/P/Bld) [Vol rate/Area] 3.89 mL/min/{1.73_m2} Normal >60mL/min/1.7 3m2 [facility] Comment on above: Result Comment: If t he patient is , multiply the result by 1.210. Performed By: #### G FR #### [facility] [address] [place], [place] [address] Protimeon 05-10-2020 INR Coag (PPP) [Relative time] 0.98 {INR} Normal 0.90-1.30 [facility] Comment on above: Result Comment: Conchita min K Antagonist (VKA) Therapeutic Range: INR 2 to 3 (Target INR of 2.5) Note: For patients treated with VKA drugs, such as warfarin, the [place] College of Chest Physicians 2012 Guideline recommends a therapeutic INR range of 2 to 3 (target INR of 2.5). This recommendation includes high-risk patients with antiphospholipid syndrome with previous arterial or venous thromboembolism, current-generation mechanical or bioprosthetic aortic heart valve replacement. Note: Patients with mechanical aortic valve replacement and additional risk factors for thromboembolic events (atrial fibrillation, previous thromboembolism, LV dysfunction, hypercoagulable conditions) or an older generation mechanical AVR (i.e., ball in-Cage) or any mechanical MVR should have a INR therapeutic range of 2.5 to 3.5 target INR of 3). Angie GH, et al. Chest 2012; 141:7S-47S Randall RA et al. [facility] 2017; 70: 252-289 Performed By: #### P T #### [address] [address] PT Coag (PPP) [Time] 10.6 s Normal 9.7-13.0 [facility] Comment on above: Performed By: #### P T #### [address] [address] Rapid, COVID 19on 03-20-2020 Rapid, COVID 19 Negative Normal Negative [facility] Comment on above: Result Comment: This test has been authorized by the FDA under an Emergency Use Authorization (EUA). Performed By: #### R COVD #### [place] [address] Basic Metabolic Panelon 02-25 Anion gap [Moles/Vol] 14 mmol/L Normal 9-18 [facility] Comment on above: Performed By: #### B MP #### [place] [address] Calcium [Mass/Vol] 10.0 mg/dL Normal 8.5-10.2 [facility] Comment on above: Performed By: #### B MP #### [place] [address] Chloride [Moles/Vol] 95 mmol/L Low 97-105 [facility] Comment on above: Performed By: #### B MP #### [place] [address] CO2 Blood 26 mmol/L Normal 22-30 [facility] Comment on above: Performed By: #### B MP #### [place] [address] Creatinine [Mass/Vol] 9.29 mg/dL High 0.73-1.22 [facility] Comment on above: Performed By: #### B MP #### [facility] [address] [place], [place] [address] Glucose [Mass/Vol] 84 mg/dL Normal 74-99 [facility] Comment on above: Result Comment: The [place] Diabetes Association (ADA) provides guidance for cutoff values for fasting glucose and random glucose. The ADA defines fasting as no caloric intake for at least 8 hours.Fasting plasma glucose results between 100 to 125 mg/dL indicate increased risk for diabetes (prediabetes). Fasting plasma glucose results greater than or equal to 126 mg/dL meet the criteria for diagnosis of diabetes. In the absence of unequivocal hyperglycemia, results should be confirmed by repeat testing. In a patient with classic symptoms of hyperglycemia or hyperglycemic crisis, random plasma glucose results greater than or equal to 200 mg/dL meet the criteria for diagnosis of diabetes. Reference: Standards of Medical Care in Diabetes 2016; [place] Diabetes Association. Diabetes Care. 2016;39(Suppl 1). Performed By: #### B MP #### [address] [address] Potassium [Moles/Vol] 3.7 mmol/L Normal 3.7-5.1 [facility] Comment on above: Performed By: #### B MP #### [facility] [address] [place], [place] [address] Sodium [Moles/Vol] 135 mmol/L Low 136-144 [facility] Comment on above: Performed By: #### B MP #### [facility] [address] [place], [place] [address] Urea nitrogen [Mass/Vol] 32 mg/dL High 9-24 [facility] Comment on above: Performed By: #### B MP #### [facility] [address] [place], [place] [address] Hematologyon 03-13-2020 INR Coag (PPP) [Relative time] 0.96 {INR} 0.90 - 1.30 [facility] PT Coag (PPP) [Time] 10.4 s 9.7 - 1 3.0 sec [facility] Hematocrit (Bld) [Volume fraction] 30.6 % Low 40.1 - 51.0 % [facility] Hemoglobin (Bld) [Mass/Vol] 10.8 g/dL Low 13.7 - 17.5 g/dL [facility] MCH (RBC) [Entitic mass] 31.0 pg 25. 7 - 32.2 pg [facility] MCV (RBC) [Entitic vol] 87.9 fL 83.2 - 95.6 fl [facility] Platelets (Bld) [#/Vol] 269 thou/cmm 141 - 365 thou/cmm [facility] RBC (Bld) [#/Vol] 3.48 mil/cmm Low 4.63 - 6.0 8 mil/cmm [place] [facility] WBC (Bld) [#/Vol] 10.79 thou/cmm High 4.23 - 9 .07 thou/cmm [facility] Hemogramon 03-13-2020 Erythrocyte distribution width (RBC) [Ratio] 13.2 % Normal 11.6-14.4 [facility] Comment on above: Performed By: #### C BC1 #### [facility] [address] [place] [address] Hematocrit (Bld) [Volume fraction] 30.6 % Low 40.1-51.0 [facility] Comment on above: Performed By: #### C BC1 #### [facility] [address] [place], [place] [address] Hemoglobin (Bld) [Mass/Vol] 10.8 g/dL Low 13.7-17.5 [facility] Comment on above: Performed By: #### C BC1 #### [facility] [address] [place], [place] [address] MCH (RBC) [Entitic mass] 31.0 pg Normal 25.7-32.2 [facility] Comment on above: Performed By: #### C BC1 #### [facility] [address] [place], [place] [address] MCHC (RBC) [Mass/Vol] 35.3 % Normal 32.3-36.5 [facility] Comment on above: Performed By: #### C BC1 #### [facility] [address] [place], [place] [address] MCV (RBC) [Entitic vol] 87.9 fL Normal 83.2-95.6 [facility] Comment on above: Performed By: #### C BC1 #### [facility] [address] [place], [place] [address] Platelet mean volume (Bld) [Entitic vol] 10.1 fL Normal 8.7-12.0 [facility] Comment on above: Performed By: #### C BC1 #### [facility] [address] [place], [place] [address] Platelets (Bld) [#/Vol] 269 thou/cmm Normal 141-365 [facility] Comment on above: Performed By: #### C BC1 #### [facility] [address] [place] [address] RBC (Bld) [#/Vol] 3.48 mil/cmm Low 4.63-6.08 [facility] Comment on above: Performed By: #### C BC1 #### [place] [address] RDW SD 42.3 fl Normal 36.1-45.8 [facility] Comment on above: Performed By: #### C BC1 #### [facility] [address] [place] [id number] WBC (Bld) [#/Vol] 10.79 thou/cmm High 4.23-9.07 [facility] Comment on above: Performed By: #### C BC1 #### [facility] [address] [place] [address] MDRD GFRon 03-13-2020 GFR/1.73 sq M predicted among non-blacks MDRD (S/P/Bld) [Vol rate/Area] 5.94 mL/min/{1.73_m2} Normal >60mL/min/1.7 3m2 [facility] Comment on above: Result Comment: If t he patient is , multiply the result by 1.210. Performed By: #### G FR #### [facility] [address] [place] [address] Metabolic Panelon 03-13-2020 Anion gap [Moles/Vol] 14 mmol/L 9 - 18 mmol/L [facility] Calcium [Mass/Vol] 10.0 mg/dL 8.5 - 10. 2 mg/dL [facility] Chloride [Moles/Vol] 95 mmol/L Low 97 - 10 5 mmol/L [facility] CO2 [Moles/Vol] 26 mmol/L 22 - 30 mmol/L [facility] Creatinine [Mass/Vol] 9.29 mg/dL High 0.73 - 1.22 mg/dL [facility] Glucose [Mass/Vol] 84 mg/dL 74 - 99 mg/dL [facility] Potassium [Moles/Vol] 3.7 mmol/L 3.7 - 5.1 mmol/L [facility] Sodium [Moles/Vol] 135 mmol/L Low 136 - 144 mmol/L [facility] Urea nitrogen [Mass/Vol] 32 mg/dL High 9 - 24 mg/d L [facility] Otheron 03-13-2020 GFR/1.73 sq M.predicted MDRD (S/P/Bld) [Vol rate/Area] 5.94 mL/min/{1.73_m2} >60mL/min/1.7 3m2 [facility] Erythrocyte distribution width (RBC) [Entitic vol] 42.3 fL 36.1 - 45.8 fl [facility] Erythrocyte distribution width (RBC) [Ratio] 13.2 % 11.6 - 14.4 % [facility] MCHC (RBC) [Mass/Vol] 35.3 % 32.3 - 36.5 % [facility] Platelet mean volume (Bld) [Entitic vol] 10.1 fL 8.7 - 12.0 fl [facility] Protimeon 03-13-2020 INR Coag (PPP) [Relative time] 0.96 {INR} Normal 0.90-1.30 [facility] Comment on above: Result Comment: Conchita min K Antagonist (VKA) Therapeutic Range: INR 2 to 3 (Target INR of 2.5) Note: For patients treated with VKA drugs, such as warfarin, the [place] [employer] 2012 Guideline recommends a therapeutic INR range of 2 to 3 (target INR of 2.5). This recommendation includes high-risk patients with antiphospholipid syndrome with previous arterial or venous thromboembolism, current-generation mechanical or bioprosthetic aortic heart valve replacement. Note: Patients with mechanical aortic valve replacement and additional risk factors for thromboembolic events (atrial fibrillation, previous thromboembolism, LV dysfunction, hypercoagulable conditions) or an older generation mechanical AVR (i.e., ball in-Cage) or any mechanical MVR should have a INR therapeutic range of 2.5 to 3.5 target INR of 3). Angie GH, et al. Chest 2012; 141:7S-47S Randall PATTON et al. [facility] 2017; 70: 252-289 Performed By: #### P T #### [facility] [address] [place], [place] [address] PT Coag (PPP) [Time] 10.4 s Normal 9.7-13.0 [facility] Comment on above: Performed By: #### P T #### [facility] [address] [place], [place] [address] US VEIN MAPPING UPPER BILon 02-13-2020 US VEIN MAPPING UPPER HO * * *Final Report* * * DATE OF EXAM: Feb 13 2020 2:22PM [place] 1085 - US VEIN MAPPING UPPER HO / PROCEDURE REASON: N18.6 * * * * Physician Interpretation * * * * EXAM TITLE: BILATERAL COLOR-FLOW DUPLEX ULTRASOUND OF EACH UPPER EXTREMITY FOR VEIN MAPPING. DATE: February 13, 2020 at 1:10 PM COMPARISON: None. CLINICAL INDICATION/HISTORY: The patient is a 54-year-old male with chronic renal failure who is being evaluated for vein mapping as a potential candidate for fistula or graft formation for future dialysis access. TECHNIQUE: Color-flow duplex ultrasound interrogated as much as could be seen of the arterial inflow and deep venous system of each upper extremity. The central venous return was also evaluated. FINDINGS: RIGHT UPPER EXTREMITY: The arterial inflow is triphasic with normal color flow. The brachial artery measures 5.5 mm. The radial artery measures 3.3 mm. The ulnar artery measures 2.8 mm. There is no deep venous thrombosis. The central venous return shows normal color flow and respiratory phasicity. The veins in the forearm are more prominent on the radial side. The radial veins range from 3.1 to 4.2 mm. The ulnar veins range from 1.4 to 2.6 mm. The brachial vein ranges from 3 to 3.8 mm. The basilic vein ranges from 6.7 to 7.4 mm. The cephalic vein ranges from 4.3 at 5.3 mm. LEFT UPPER EXTREMITY: The arterial inflow is triphasic with normal color flow. The brachial artery measures 5.8 mm. The radial artery measures 3.6 mm. The ulnar artery measures 2 mm. There is no deep venous thrombosis. The central venous return shows normal color flow and respiratory phasicity. The veins in the forearm are more prominent on the radial side. The radial veins range from 3.7 to 4.7 mm. The ulnar veins range from 2.6 to 2.7 mm. The brachial vein ranges from 2.7 to 3.4 mm. The basilic vein ranges from 6.4 to 7.3 mm. The cephalic vein ranges from 4.6 to 5 mm. IMPRESSION: Venous diameters and depth are included on the worksheet. Arterial inflow is normal. Central venous return is unobstructed. There is no deep venous thrombosis. Environmental Services Director: PSCB Transcribe Date/Time: Feb 13 2020 4:27P Dictated by : ANALISA GRANADOS MD This examination was interpreted and the report reviewed and electronically signed by: ANALISA GRANADOS MD on Feb 13 2020 4:30PM EST Normal [facility] Basic Metabolic PanelOrdered By: Darell Sanches on 10-27-2019 Anion gap [Moles/Vol] 18 mmol/L [facility] Work Phone: Calcium [Mass/Vol] 9.2 mg/dL 8.4 - 10. 4 mg/dL [facility] Work Phone: Chloride [Moles/Vol] 93 mmol/L Low 98 - 10 7 mmol/L [facility] Work Phone: CO2 [Moles/Vol] 24 mmol/L 22 - 30 mmol/L [facility] Work Phone: Creatinine [Mass/Vol] 9.99 mg/dL High 0.52 - 1.25 mg/dL [facility] Work Phone: EGFR IF NonAfrican Citizen [place] 5.5 mL/min >60 [facility] Work Phone: Comment on above: Source- MDRD equatio n with creatinine calibration to IDMS(NKDEP) eGFR not recommended for drug dose adjustment GFR/1.73 sq M.predicted among blacks MDRD (S/P/Bld) [Vol rate/Area] 6.6 mL/min/{1.73_m2} >60 [facility] Work Phone: [phone] Glucose [Mass/Vol] 103 mg/dL High 70 - 100 mg/dL [facility] Work Phone: 1 Potassium [Moles/Vol] 4.5 mmol/L 3.5 - 5.1 mmol/L [facility] Work Phone: 1 Sodium [Moles/Vol] 135 mmol/L 135 - 145 mmol/L [facility] Work Phone: Urea nitrogen [Mass/Vol] 49 mg/dL High 7 - 20 mg/d L [facility] Work Phone: 1 CBC Auto DifferentialOrdered By: Darell Sanches on 10-27-2019 Absolute Baso # 0.1 10*3/uL 0 - 0.2 10*3/uL [facility] Work Phone: Absolute Neut # 6.6 10*3/uL 1.8 - 7 10*3/uL [facility] Work Phone: Basophils/100 WBC (Bld) 0.7 % 0 - 2 % S [facility] Work Phone: Eosinophils (Bld) [#/Vol] 0.5 10*3/uL 0 - 0.5 10*3/uL [facility] Work Phone: 22 Eosinophils/100 WBC (Bld) 4.9 % 1 - 6 % [facility] Work Phone: Erythrocyte distribution width (RBC) [Ratio] 14.0 % 11.5 - 14.5 % [facility] Work Phone: Granulocytes/100 WBC (Bld) 62.2 % 40 - 80 % [facility] Work Phone: Hematocrit (Bld) [Volume fraction] 28.3 % Low 40 - 52 % [facility] Work Phone: Hemoglobin (Bld) [Mass/Vol] 9.5 g/dL Low 13 - 18 g/dL [facility] Work Phone: Lymphocytes (Bld) [#/Vol] 2.0 10*3/uL 1 - 4.3 10*3/uL [facility] Work Phone: 22 Lymphocytes/100 WBC (Bld) 18.8 % Low 20 - 40 % [facility] Work Phone: 1 MCH (RBC) [Entitic mass] 29.1 pg 26 - 34 pg [facility] Work Phone: MCHC 33.6 % 32 - 36 % [facility] Work Phone: 1 MCV (RBC) [Entitic vol] 86.7 fL 80 - 98 fL [facility] Work Phone: Monocytes (Bld) [#/Vol] 1.4 10*3/uL High 0 - 0.8 10*3/uL [facility] Work Phone: 1 Monocytes/100 WBC (Bld) 13.4 % High 2 - 10 % [facility] Work Phone: Platelet mean volume (Bld) [Entitic vol] 8.2 fL 7.4 - 10.4 fL [facility] Work Phone: Platelets (Bld) [#/Vol] 259 10*3/uL 140 - 440 10*3/uL [facility] Work Phone: RBC (Bld) [#/Vol] 3.27 10*6/uL Low 4.4 - 5.9 10*6/uL [facility] Work Phone: WBC (Bld) [#/Vol] 10.6 10*3/uL 3.6 - 10.7 10*3/uL [facility] Work Phone: MAGNESIUMOrdered By: Darell Sanches on 10-27-2019 Magnesium [Mass/Vol] 2.6 mg/dL High 1.6 - 2 .3 mg/dL [employer] Work Phone: No Panel InformationOrdered By: Darell Sanches on 10-27-2019 Interpretation and review of laboratory results Abnormal [facility] Work Phone: Test Performed by [employer] [facility], [address] [place] [id number] [employer] Work Phone: PhosphorusOrdered By: Darell Sanches on 10-27-2019 Phosphate [Mass/Vol] 9.9 mg/dL High 2.5 - 4 .5 mg/dL [employer] Work Phone: [phone] Basic Metabolic PanelOrdered By: Darell Sanches on 10-26-2019 Anion gap [Moles/Vol] 14 mmol/L [facility] Work Phone: [phone] Calcium [Mass/Vol] 9.0 mg/dL 8.4 - 10. 4 mg/dL [facility] Work Phone: [phone] Chloride [Moles/Vol] 94 mmol/L Low 98 - 10 7 mmol/L [facility] Work Phone: 1 CO2 [Moles/Vol] 29 mmol/L 22 - 30 mmol/L [facility] Work Phone: [phone] Creatinine [Mass/Vol] 7.06 mg/dL High 0.52 - 1.25 mg/dL [facility] Work Phone: [phone] EGFR IF NonAfrican [place] 8.2 mL/min >60 [facility] Work Phone: [phone] Comment on above: Source- MDRD equatio n with creatinine calibration to IDMS(NKDEP) eGFR not recommended for drug dose adjustment GFR/1.73 sq M.predicted among blacks MDRD (S/P/Bld) [Vol rate/Area] 9.9 mL/min/{1.73_m2} >60 [facility] Work Phone: [phone] Glucose [Mass/Vol] 95 mg/dL 70 - 100 mg/dL [facility] Work Phone: [phone] Potassium [Moles/Vol] 4.2 mmol/L 3.5 - 5.1 mmol/L [facility] Work Phone: Sodium [Moles/Vol] 136 mmol/L 135 - 145 mmol/L [facility] Work Phone: [phone] Urea nitrogen [Mass/Vol] 27 mg/dL High 7 - 20 mg/d L [facility] Work Phone: [phone] CBC Auto DifferentialOrdered By: Darell Sanches on 10-26-2019 Absolute Baso # 0.1 10*3/uL 0 - 0.2 10*3/uL [facility] Work Phone: [phone] Absolute Neut # 7.1 10*3/uL High 1.8 - 7 10*3/uL [facility] Work Phone: [phone] 22 Basophils/100 WBC (Bld) 0.8 % 0 - 2 % [facility] Work Phone: Eosinophils (Bld) [#/Vol] 0.5 10*3/uL 0 - 0.5 10*3/uL [facility] Work Phone: 1 22 Eosinophils/100 WBC (Bld) 4.7 % 1 - 6 % [facility] Work Phone: 1 Erythrocyte distribution width (RBC) [Ratio] 13.9 % 11.5 - 14.5 % [facility] Work Phone: 1 Granulocytes/100 WBC (Bld) 63.9 % 40 - 80 % [employer] Work Phone: Hematocrit (Bld) [Volume fraction] 29.2 % Low 40 - 52 % [employer] Work Phone: Hemoglobin (Bld) [Mass/Vol] 9.9 g/dL Low 13 - 18 g/dL [facility] Work Phone: Interpretation and review of laboratory results Abnormal [employer] Work Phone: 1 Lymphocytes (Bld) [#/Vol] 2.0 10*3/uL 1 - 4.3 10*3/uL [employer] Work Phone: 1 22 Lymphocytes/100 WBC (Bld) 17.8 % Low 20 - 40 % [facility] Work Phone: MCH (RBC) [Entitic mass] 29.5 pg 26 - 34 pg [employer] Work Phone: 22 MCHC 33.9 % 32 - 36 % [employer] Work Phone: 1 MCV (RBC) [Entitic vol] 87.0 fL 80 - 98 fL [facility] Work Phone: Monocytes (Bld) [#/Vol] 1.4 10*3/uL High 0 - 0.8 10*3/uL [facility] Work Phone: 1 22 Monocytes/100 WBC (Bld) 12.8 % High 2 - 10 % [facility] Work Phone: Platelet mean volume (Bld) [Entitic vol] 8.0 fL 7.4 - 10.4 fL [facility] Work Phone: 1 Platelets (Bld) [#/Vol] 262 10*3/uL 140 - 440 10*3/uL [facility] Work Phone: RBC (Bld) [#/Vol] 3.36 10*6/uL Low 4.4 - 5.9 10*6/uL [facility] Work Phone: WBC (Bld) [#/Vol] 11.0 10*3/uL High 3.6 - 10.7 10*3/uL [facility] Work Phone: 1 Test Performed by [facility], [address] [address] [employer] Work Phone: Culture Blood #1Ordered By: Brett Encarnacion on 10-26-2019 Blood Culture, Routine [employer] testing is not routinely performed on Gram positive bacilli. If a Listeria infection is highly suspected, contact the Microbiology laboratory [phone]). Abnormal [employer] Work Phone: 1 Blood Culture, Routine Propionibacterium acnes Abnormal [employer] Work Phone: 1 Blood Culture, Routine Isolated: Contamination likely unless additional blood culture sets are found to be positive with the same organism. [employer] Work Phone: 1 Interpretation and review of laboratory results Abnormal [employer] Work Phone: Test Performed by [facility], [address] [place] [address] Specimen Source Comment:Blood [employer] Work Phone: MAGNESIUMOrdered By: Darell Sanches on 10-26-2019 Magnesium [Mass/Vol] 2.2 mg/dL 1.6 - 2 .3 mg/dL [facility] Work Phone: No Panel InformationOrdered By: Darell Sanches on 10-26-2019 Interpretation and review of laboratory results Abnormal [employer] Work Phone: 1 Test Performed by [facility], [address] [place], [place] [address] [employer] Work Phone: PhosphorusOrdered By: Darell Sanches on 10-26-2019 Phosphate [Mass/Vol] 7.1 mg/dL High 2.5 - 4 .5 mg/dL [facility] Work Phone: US BIOPSY RENAL RIGHT PERCOr dered By: Cindy Patel on 10-26-2019 Patient Name: GLENN SNYDER ---Ultrasound--- Exam Date/Time 10/26/2019 10:57:27 EST Exam US Biopsy Renal Right Ordering Physician MD DA, CINDY MONMOUTH Accession Number [id number] CPT4 Codes 44781 (), 48387 () Reason For Exam renal failure Report ULTRASOUND GUIDED RIGHT LOWER POLE KIDNEY BIOPSY Reasons for examination: Acute renal failure. After review of prior studies, patient interview and examination, the risks, benefits, and alternatives of the biopsy procedure were discussed, informed consent was obtained. Edm Operator US scans of the right kidney were obtained, with image capture. The lower pole the right kidney was localized. Following sterile preparation, draping, and local anesthetic administration, ultrasound guidance was used to advance a 17-gauge introducer needle into the lower pole the right kidney. After the introducer needle was in place, 18-gauge core needle biopsy specimens were obtained. The specimens were sent to pathology for evaluation. Post procedure US scan demonstrated no evidence of significant retroperitoneal or subcapsular hemorrhage. Images were captured. The patient tolerated the procedure and there were no immediate complications. The patient was transferred to the recovery area in stable condition. IMPRESSION: 1. Successful US guided core needle biopsies of lower pole right kidney. Report Dictated on --- Final --- Dictating Physician: MD ORTEGA GEORGE RICHARD Signed Date and Time: 10/26/2019 12:04 pm Signed by: MD ORTEGA GEORGE RICHARD Transcribed Date and Time: 10/26/2019 12:05 [facility] Work Phone: Mike, [facility] Incoming Radiology Results From [facility] - 10/26/2019 12:05 PM EST Patient Name: GLENN SNYDER ---Ultrasound--- Exam Date/Time 10/26/2019 10:57:27 EST Exam US Biopsy Renal Right Ordering Physician MD DA, CINDY MATHEWS Accession Number [id number] CPT4 Codes 51899 (), 85351 () Reason For Exam renal failure Report ULTRASOUND GUIDED RIGHT LOWER POLE KIDNEY BIOPSY Reasons for examination: Acute renal failure. After review of prior studies, patient interview and examination, the risks, benefits, and alternatives of the biopsy procedure were discussed, informed consent was obtained. Edm Operator US scans of the right kidney were obtained, with image capture. The lower pole the right kidney was localized. Following sterile preparation, draping, and local anesthetic administration, ultrasound guidance was used to advance a 17-gauge introducer needle into the lower pole the right kidney. After the introducer needle was in place, 18-gauge core needle biopsy specimens were obtained. The specimens were sent to pathology for evaluation. Post procedure US scan demonstrated no evidence of significant retroperitoneal or subcapsular hemorrhage. Images were captured. The patient tolerated the procedure and there were no immediate complications. The patient was transferred to the recovery area in stable condition. IMPRESSION: 1. Successful US guided core needle biopsies of lower pole right kidney. Report Dictated on --- Final --- Dictating Physician: MD ORTEGA GEORGE RICHARD Signed Date and Time: 10/26/2019 12:04 pm Signed by: MD ORTEGA GEORGE RICHARD Transcribed Date and Time: 10/26/2019 12:05 [facility] Work Phone: XA SPECIAL ANGIOGRAPHY PROCE DUREOrdered By: Jeana Pedraza on 10-26-2019 Patient Name: GLENN SNYDER ---Special Procedures--- Exam Date/Time 10/26/2019 15:01:32 EST Exam XA Special Angiography Procedure Ordering Physician MD KEILA, JEANA Accession Number [id number] Reason For Exam non tunneled to tunneled cath Report FLUOROSCOPIC AND ULTRASOUND-GUIDED TUNNELED DIALYSIS CATHETER PLACEMENT REMOVAL OF RIGHT INTERNAL JUGULAR TEMPORARY HEMODIALYSIS CATHETER CLINICAL HISTORY: Need for m[facility] central venous access Fluoroscopy time: Acute renal failure with need for extended dialysis. Request is for conversion of temporary hemodialysis catheter to tunneled hemodialysis catheter. Procedural details: The benefits and risks of the procedure were explained to the patient. All of the patient's questions were answered and the patient signed informed consent. The patient was brought into the interventional radiology suite and placed supine on the table. An audible timeout was performed. The patient's right internal jugular vein was interrogated with ultrasound and found to be widely patent and compressible. The existing temporary right internal jugular vein hemodialysis catheter appears to be too cranial to easily converted to a tunneled catheter. The decision was made to make a new lower access into the right internal jugular vein for the tunneled catheter. A permanent ultrasound image was stored to the patient's record. The patient's right neck and chest were prepped and draped in the usual sterile fashion. Maximal sterile barrier technique was utilized. All elements of maximal sterile barrier technique including a mask, hat, sterile gown, sterile gloves, and large sterile sheet were utilized. 2% Chlorhexidine antiseptic was utilized for skin sterilization. Sterile ultrasound gel and a sterile ultrasound probe cover were also used. The subcutaneous tissues were anesthetized using 1 % lidocaine. Under direct ultrasound visualization, a 21-gauge micropuncture needle was advanced into the right internal jugular vein. A 0.018 micro puncture wire was then advanced through the needle and into the SVC under fluoroscopic guidance and the access needle was exchanged for a peel-away sheath over the wire. Attention was then directed to the patient's right chest. A subcutaneous tract was created in the right chest to the venotomy site after subcutaneous anesthesia using 1% lidocaine. A hemodialysis catheter with Dacron cuff was then pulled through the tunnel and out the venotomy site. The catheter was placed through the peel-away sheath. Postplacement imaging showed proper positioning of the tunneled dialysis catheter with the tip terminating in the proximal right atrium. Both lumens of the catheter flushed and aspirated appropriately. The catheter was then sutured to the patient's skin using 2-0 silk suture. The venotomy site was closed using 4-0 Vicryl as well as skin glue. Following this, the patient's existing right internal jugular vein hemodialysis catheter was removed. Hemostasis was achieved with manual pressure. A sterile dressing was placed over the former catheter exit site. The patient tolerated the procedure well and suffered no immediate complication. The patient was transferred to the recovery area in stable condition. IMPRESSION: 1. Successful uncomplicated ultrasound and fluoroscopic guided placement of a tunneled hemodialysis catheter. The catheter is ready for immediate use. 2. Successful uncomplicated removal of temporary right internal jugular hemodialysis catheter. Report Dictated on --- Final --- Dictating Physician: MD SHANNON, DARELL MCCLOUD Signed Date and Time: 10/26/2019 3:27 pm Signed by: MD ORTEGA GEORGE RICHARD Transcribed Date and Time: 10/26/2019 3:28 [facility] Work Phone: Mike, [facility] Incoming Radiology Results From [facility] - 10/26/2019 3:29 PM EST Patient Name: GLENN SNYDER ---Special Procedures--- Exam Date/Time 10/26/2019 15:01:32 EST Exam XA Special Angiography Procedure Ordering Physician MD KEILA, AZIZ Accession Number [id number] Reason For Exam non tunneled to tunneled cath Report FLUOROSCOPIC AND ULTRASOUND-GUIDED TUNNELED DIALYSIS CATHETER PLACEMENT REMOVAL OF RIGHT INTERNAL JUGULAR TEMPORARY HEMODIALYSIS CATHETER 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 Request is for conversion of temporary hemodialysis catheter to tunneled hemodialysis catheter. Procedural details: The benefits and risks of the procedure were explained to the patient. All of the patient's questions were answered and the patient signed informed consent. The patient was brought into the interventional radiology suite and placed supine on the table. An audible timeout was performed. The patient's right internal jugular vein was interrogated with ultrasound and found to be widely patent and compressible. The existing temporary right internal jugular vein hemodialysis catheter appears to be too cranial to easily converted to a tunneled catheter. The decision was made to make a new lower access into the right internal jugular vein for the tunneled catheter. A permanent ultrasound image was stored to the patient's record. The patient's right neck and chest were prepped and draped in the usual sterile fashion. Maximal sterile barrier technique was utilized. All elements of maximal sterile barrier technique including a mask, hat, sterile gown, sterile gloves, and large sterile sheet were utilized. 2% Chlorhexidine antiseptic was utilized for skin sterilization. Sterile ultrasound gel and a sterile ultrasound probe cover were also used. The subcutaneous tissues were anesthetized using 1 % lidocaine. Under direct ultrasound visualization, a 21-gauge micropuncture needle was advanced into the right internal jugular vein. A 0.018 micro puncture wire was then advanced through the needle and into the SVC under fluoroscopic guidance and the access needle was exchanged for a peel-away sheath over the wire. Attention was then directed to the patient's right chest. A subcutaneous tract was created in the right chest to the venotomy site after subcutaneous anesthesia using 1% lidocaine. A hemodialysis catheter with Dacron cuff was then pulled through the tunnel and out the venotomy site. The catheter was placed through the peel-away sheath. Postplacement imaging showed proper positioning of the tunneled dialysis catheter with the tip terminating in the proximal right atrium. Both lumens of the catheter flushed and aspirated appropriately. The catheter was then sutured to the patient's skin using 2-0 silk suture. The venotomy site was closed using 4-0 Vicryl as well as skin glue. Following this, the patient's existing right internal jugular vein hemodialysis catheter was removed. Hemostasis was achieved with manual pressure. A sterile dressing was placed over the former catheter exit site. The patient tolerated the procedure well and suffered no immediate complication. The patient was transferred to the recovery area in stable condition. IMPRESSION: 1. Successful uncomplicated ultrasound and fluoroscopic guided placement of a tunneled hemodialysis catheter. The catheter is ready for immediate use. 2. Successful uncomplicated removal of temporary right internal jugular hemodialysis catheter. Report Dictated on --- Final --- Dictating Physician: MD ORTEGA GEORGE RICHARD Signed Date and Time: 10/26/2019 3:27 pm Signed by: MD ORTEGA GEORGE RICHARD Transcribed Date and Time: 10/26/2019 3:28 [facility] Work Phone: Basic Metabolic PanelOrdered By: Darell Sanches on 10-25-2019 Anion gap [Moles/Vol] 15 mmol/L [facility] Work Phone: Calcium [Mass/Vol] 8.7 mg/dL 8.4 - 10. 4 mg/dL [facility] Work Phone: Chloride [Moles/Vol] 95 mmol/L Low 98 - 10 7 mmol/L [facility] Work Phone: CO2 [Moles/Vol] 26 mmol/L 22 - 30 mmol/L [facility] Work Phone: Creatinine [Mass/Vol] 9.71 mg/dL High 0.52 - 1.25 mg/dL [facility] Work Phone: [phone] IF NonAfrican Citizen [place] 5.7 mL/min >60 [facility] Work Phone: [phone] Comment on above: Source- MDRD equatio n with creatinine calibration to IDMS(NKDEP) eGFR not recommended for drug dose adjustment GFR/1.73 sq M.predicted among blacks MDRD (S/P/Bld) [Vol rate/Area] 6.9 mL/min/{1.73_m2} >60 [facility] Work Phone: [phone] Glucose [Mass/Vol] 96 mg/dL 70 - 100 mg/dL [facility] Work Phone: [phone] Potassium [Moles/Vol] 4.3 mmol/L 3.5 - 5.1 mmol/L [facility] Work Phone: [phone] Sodium [Moles/Vol] 135 mmol/L 135 - 145 mmol/L [employer] Work Phone: [phone] Urea nitrogen [Mass/Vol] 39 mg/dL High 7 - 20 mg/d L [facility] Work Phone: [phone] CBC Auto DifferentialOrdered By: Darell Sanches on 10-25-2019 Absolute Baso # 0.1 10*3/uL 0 - 0.2 10*3/uL [facility] Work Phone: [phone] Absolute Neut # 6.7 10*3/uL 1.8 - 7 10*3/uL [facility] Work Phone: [phone] Basophils/100 WBC (Bld) 0.9 % 0 - 2 % [facility] Work Phone: [phone] Eosinophils (Bld) [#/Vol] 0.5 10*3/uL 0 - 0.5 10*3/uL [facility] Work Phone: [phone] Eosinophils/100 WBC (Bld) 4.5 % 1 - 6 % [facility] Work Phone: [phone] Erythrocyte distribution width (RBC) [Ratio] 13.8 % 11.5 - 14.5 % [facility] Work Phone: [phone] Granulocytes/100 WBC (Bld) 60.1 % 40 - 80 % [employer] Work Phone: 1 Hematocrit (Bld) [Volume fraction] 28.3 % Low 40 - 52 % [employer] Work Phone: 1 Hemoglobin (Bld) [Mass/Vol] 9.7 g/dL Low 13 - 18 g/dL [employer] Work Phone: 1 Interpretation and review of laboratory results Abnormal [employer] Work Phone: 1 Lymphocytes (Bld) [#/Vol] 2.6 10*3/uL 1 - 4.3 10*3/uL [employer] Work Phone: 1 Lymphocytes/100 WBC (Bld) 22.9 % 20 - 40 % [employer] Work Phone: 1 MCH (RBC) [Entitic mass] 30.0 pg 26 - 34 pg [employer] Work Phone: 1 MCHC 34.3 % 32 - 36 % [employer] Work Phone: 1 MCV (RBC) [Entitic vol] 87.3 fL 80 - 98 fL [facility] Work Phone: 1 Monocytes (Bld) [#/Vol] 1.3 10*3/uL High 0 - 0.8 10*3/uL [employer] Work Phone: 1 Monocytes/100 WBC (Bld) 11.6 % High 2 - 10 % [facility] Work Phone: 1 Platelet mean volume (Bld) [Entitic vol] 8.1 fL 7.4 - 10.4 fL [employer] Work Phone: 1 22 Platelets (Bld) [#/Vol] 252 10*3/uL 140 - 440 10*3/uL [employer] Work Phone: 1 22 RBC (Bld) [#/Vol] 3.24 10*6/uL Low 4.4 - 5.9 10*6/uL [employer] Work Phone: 1 22 WBC (Bld) [#/Vol] 11.2 10*3/uL High 3.6 - 10.7 10*3/uL [employer] Work Phone: 1 Test Performed by [facility], [address] [place], [place] [id number] [place] [address] Work Phone: MAGNESIUMOrdered By: Darell Sanches on 10-25-2019 Magnesium [Mass/Vol] 2.2 mg/dL 1.6 - 2 .3 mg/dL [facility] Work Phone: 1 No Panel InformationOrdered By: Darell Sanches on 10-25-2019 Interpretation and review of laboratory results Abnormal [facility] Work Phone: 1 Test Performed by [facility], [address] [place], [place] [address] [facility] Work Phone: PhosphorusOrdered By: Darell Sanches on 10-25-2019 Phosphate [Mass/Vol] 9.3 mg/dL High 2.5 - 4 .5 mg/dL [facility] Work Phone: 1 APTTOrdered By: Cindy Patel on 10-24-2019 aPTT Coag (d) [Time] 28.5 s 20 - 30.5 s S [facility] Work Phone: Comment on above: NOTE: The therapeuti c time for Heparin anticoagulation, based on Xa activity inhibition, is an APTT of 46-80 seconds. Basic Metabolic PanelOrdered By: Darell Sanches on 10-24-2019 Anion gap [Moles/Vol] 10 mmol/L [facility] Work Phone: 1 Calcium [Mass/Vol] 8.6 mg/dL 8.4 - 10. 4 mg/dL [facility] Work Phone: Chloride [Moles/Vol] 94 mmol/L Low 98 - 10 7 mmol/L [facility] Work Phone: CO2 [Moles/Vol] 31 mmol/L High 22 - 30 mmol/L [facility] Work Phone: Creatinine [Mass/Vol] 7.11 mg/dL High 0.52 - 1.25 mg/dL [facility] Work Phone: 1 EGFR IF NonAfrican Citizen [place] 8.1 mL/min >60 [facility] Work Phone: Comment on above: Source- MDRD equatio n with creatinine calibration to IDMS(NKDEP) eGFR not recommended for drug dose adjustment GFR/1.73 sq M.predicted among blacks MDRD (S/P/Bld) [Vol rate/Area] 9.8 mL/min/{1.73_m2} >60 [facility] Work Phone: [phone] Glucose [Mass/Vol] 93 mg/dL 70 - 100 mg/dL [facility] Work Phone: Potassium [Moles/Vol] 4.1 mmol/L 3.5 - 5.1 mmol/L [facility] Work Phone: Sodium [Moles/Vol] 135 mmol/L 135 - 145 mmol/L [facility] Work Phone: Urea nitrogen [Mass/Vol] 28 mg/dL High 7 - 20 mg/d L [facility] Work Phone: [phone] CBC Auto DifferentialOrdered By: Darell Sanches on 10-24-2019 Absolute Baso # 0.1 10*3/uL 0 - 0.2 10*3/uL [facility] Work Phone: [phone] Absolute Neut # 6.2 10*3/uL 1.8 - 7 10*3/uL [facility] Work Phone: [phone] Basophils/100 WBC (Bld) 0.7 % 0 - 2 % [facility] Work Phone: Eosinophils (Bld) [#/Vol] 0.4 10*3/uL 0 - 0.5 10*3/uL [facility] Work Phone: [phone] Eosinophils/100 WBC (Bld) 3.7 % 1 - 6 % [facility] Work Phone: [phone] Erythrocyte distribution width (RBC) [Ratio] 14.0 % 11.5 - 14.5 % [facility] Work Phone: [phone] Granulocytes/100 WBC (Bld) 63.8 % 40 - 80 % [facility] Work Phone: [phone] Hematocrit (Bld) [Volume fraction] 27.0 % Low 40 - 52 % [facility] Work Phone: [phone] Hemoglobin (Bld) [Mass/Vol] 9.2 g/dL Low 13 - 18 g/dL [facility] Work Phone: [phone] Interpretation and review of laboratory results Abnormal [employer] Work Phone: 1 Lymphocytes (Bld) [#/Vol] 1.8 10*3/uL 1 - 4.3 10*3/uL [employer] Work Phone: 1 Lymphocytes/100 WBC (Bld) 18.8 % Low 20 - 40 % [employer] Work Phone: MCH (RBC) [Entitic mass] 29.6 pg 26 - 34 pg [employer] Work Phone: MCHC 34.1 % 32 - 36 % [employer] Work Phone: 1 MCV (RBC) [Entitic vol] 86.9 fL 80 - 98 fL [facility] Work Phone: Monocytes (Bld) [#/Vol] 1.3 10*3/uL High 0 - 0.8 10*3/uL [employer] Work Phone: Monocytes/100 WBC (Bld) 13.0 % High 2 - 10 % [facility] Work Phone: Platelet mean volume (Bld) [Entitic vol] 8.4 fL 7.4 - 10.4 fL [employer] Work Phone: Platelets (Bld) [#/Vol] 245 10*3/uL 140 - 440 10*3/uL [employer] Work Phone: RBC (Bld) [#/Vol] 3.10 10*6/uL Low 4.4 - 5.9 10*6/uL [employer] Work Phone: WBC (Bld) [#/Vol] 9.7 10*3/uL 3.6 - 10.7 10*3/uL [employer] Work Phone: Culture Blood #1Ordered By: Brett Encarnacion on 10-24-2019 Blood Culture, Routine No growth at 5 days. [employer] Work Phone: Test Performed by [facility] [address] Specimen Source Comment:Blood [employer] Work Phone: 1 Glomerular Basement Membrane (GBM) Antibody IgGOrdered By: Randolph Euceda on 10-24-2019 GBM Ab, IgG (IFA) Negative Negative NA [facility] Work Phone: Comment on above: INTERPRETIVE INFORMA TION: GBM Ab, IgG (IFA) When present, IgG antibody to glomerular basement membrane (GBM) antigen detected by either indirect fluorescent antibody (IFA) or multiplex bead assay helps support a diagnosis of Goodpasture syndrome. However, the combined result of both assays performed during initial evaluation improves the diagnostic sensitivity for disease. A positive result in one or both assays should be confirmed by renal biopsy. Test developed and characteristics determined by [employer]. See Compliance Statement D: [employer]/CS Performed by [employer], [address] [place] [id number] [email or web address], Malvin Slade MD, Lab. Director MAGNESIUMOrdered By: Darell Sanches on 10-24-2019 Magnesium [Mass/Vol] 2.1 mg/dL 1.6 - 2 .3 mg/dL [facility] Work Phone: No Panel InformationOrdered By: Darell Sanches on 10-24-2019 Interpretation and review of laboratory results Abnormal [facility] Work Phone: Test Performed by [facility], [address] [place] [id number] [place] [address] Work Phone: Test Performed by [facility], [address] [place] [id number] [place] [address] Work Phone: PhosphorusOrdered By: Darell Sanches on 10-24-2019 Phosphate [Mass/Vol] 5.8 mg/dL High 2.5 - 4 .5 mg/dL [facility] Work Phone: Protime-INROrdered By: Darren Patel on 10-24-2019 INR Coag (PPP) [Relative time] 1.1 {INR} [facility] Work Phone: Comment on above: Recommended Anticoag ulant Therapy: SEE BELOW ----- INR of 2.0 - 3.0 : - Prophylaxis of Venous Thrombosis (high-risk surgery) - Treatment of Venous Thrombosis - Treatment of Pulmonary Embolism (Includes tissue heart valves, Acute Myocardial Infarction to prevent systemic embolism, Valvular Heart Disease, and Atrial Fibrillation) ----- INR of 2.5 - 3.5 : - Mechanical Prosthetic Valves (high risk) - If oral anticoagulant therapy is used to prevent Myocardial Infarction PT Coag (PPP) [Time] 11.4 s 9 - 12 s [facility] Work Phone: [phone] Comment on above: . Basic Metabolic PanelOrdered By: Darell Sanches on 10-23-2019 Anion gap [Moles/Vol] 17 mmol/L [facility] Work Phone: [phone] Calcium [Mass/Vol] 8.6 mg/dL 8.4 - 10. 4 mg/dL [facility] Work Phone: [phone] Chloride [Moles/Vol] 94 mmol/L Low 98 - 10 7 mmol/L [facility] Work Phone: [phone] CO2 [Moles/Vol] 24 mmol/L 22 - 30 mmol/L [facility] Work Phone: [phone] Creatinine [Mass/Vol] 11.03 mg/dL High 0.52 - 1.25 mg/dL [facility] Work Phone: [phone] EGFR IF NonAfrican Citizen [place] 4.9 mL/min >60 [facility] Work Phone: [phone] Comment on above: Source- MDRD equatio n with creatinine calibration to IDMS(NKDEP) eGFR not recommended for drug dose adjustment GFR/1.73 sq M.predicted among blacks MDRD (S/P/Bld) [Vol rate/Area] 5.9 mL/min/{1.73_m2} >60 [facility] Work Phone: Glucose [Mass/Vol] 97 mg/dL 70 - 100 mg/dL [facility] Work Phone: Potassium [Moles/Vol] 3.9 mmol/L 3.5 - 5.1 mmol/L [facility] Work Phone: [phone] Sodium [Moles/Vol] 135 mmol/L 135 - 145 mmol/L [facility] Work Phone: [phone] Urea nitrogen [Mass/Vol] 61 mg/dL High 7 - 20 mg/d L [facility] Work Phone: 1 CBC Auto DifferentialOrdered By: Darell Sanches on 10-23-2019 Absolute Baso # 0.1 10*3/uL 0 - 0.2 10*3/uL [facility] Work Phone: 1 Absolute Neut # 7.1 10*3/uL High 1.8 - 7 10*3/uL [facility] Work Phone: [phone] Basophils/100 WBC (Bld) 1.0 % 0 - 2 % [facility] Work Phone: Eosinophils (Bld) [#/Vol] 0.5 10*3/uL 0 - 0.5 10*3/uL [facility] Work Phone: Eosinophils/100 WBC (Bld) 4.7 % 1 - 6 % [facility] Work Phone: 1 Erythrocyte distribution width (RBC) [Ratio] 13.8 % 11.5 - 14.5 % [facility] Work Phone: Granulocytes/100 WBC (Bld) 65.3 % 40 - 80 % [facility] Work Phone: Hematocrit (Bld) [Volume fraction] 27.6 % Low 40 - 52 % [facility] Work Phone: Hemoglobin (Bld) [Mass/Vol] 9.5 g/dL Low 13 - 18 g/dL [facility] Work Phone: Interpretation and review of laboratory results Abnormal [facility] Work Phone: Lymphocytes (Bld) [#/Vol] 1.9 10*3/uL 1 - 4.3 10*3/uL [facility] Work Phone: 22 Lymphocytes/100 WBC (Bld) 17.3 % Low 20 - 40 % [facility] Work Phone: MCH (RBC) [Entitic mass] 29.7 pg 26 - 34 pg [facility] Work Phone: MCHC 34.3 % 32 - 36 % [facility] Work Phone: MCV (RBC) [Entitic vol] 86.6 fL 80 - 98 fL S [facility] Work Phone: Monocytes (Bld) [#/Vol] 1.3 10*3/uL High 0 - 0.8 10*3/uL [facility] Work Phone: Monocytes/100 WBC (Bld) 11.7 % High 2 - 10 % [facility] Work Phone: Platelet mean volume (Bld) [Entitic vol] 7.7 fL 7.4 - 10.4 fL [facility] Work Phone: Platelets (Bld) [#/Vol] 248 10*3/uL 140 - 440 10*3/uL [facility] Work Phone: RBC (Bld) [#/Vol] 3.18 10*6/uL Low 4.4 - 5.9 10*6/uL [facility] Work Phone: WBC (Bld) [#/Vol] 10.8 10*3/uL High 3.6 - 10.7 10*3/uL [facility] Work Phone: Test Performed by [facility], [address] [place], [place] [address]A Work Phone: MAGNESIUMOrdered By: Darell Sanches on 10-23-2019 Magnesium [Mass/Vol] 2.1 mg/dL 1.6 - 2 .3 mg/dL [facility] Work Phone: No Panel InformationOrdered By: Darell Sanches on 10-23-2019 Interpretation and review of laboratory results Abnormal [facility] Work Phone: Test Performed by [facility], [address] [place], [place] [address]A Work Phone: PhosphorusOrdered By: Darell Sanches on 10-23-2019 Phosphate [Mass/Vol] 9.5 mg/dL High 2.5 - 4 .5 mg/dL [facility] Work Phone: Basic Metabolic PanelOrdered By: Delon Jessica on 10-22-2019 Anion gap [Moles/Vol] 14 mmol/L [facility] Work Phone: Calcium [Mass/Vol] 8.9 mg/dL 8.4 - 10. 4 mg/dL [facility] Work Phone: [phone] Chloride [Moles/Vol] 95 mmol/L Low 98 - 10 7 mmol/L [facility] Work Phone: [phone] CO2 [Moles/Vol] 28 mmol/L 22 - 30 mmol/L [facility] Work Phone: [phone] Creatinine [Mass/Vol] 8.75 mg/dL High 0.52 - 1.25 mg/dL [facility] Work Phone: [phone] EGFR IF NonAfrican Citizen [place] 6.4 mL/min >60 [facility] Work Phone: [phone] Comment on above: Source- MDRD equatio n with creatinine calibration to IDMS(NKDEP) eGFR not recommended for drug dose adjustment GFR/1.73 sq M.predicted among blacks MDRD (S/P/Bld) [Vol rate/Area] 7.7 mL/min/{1.73_m2} >60 [facility] Work Phone: [phone] Glucose [Mass/Vol] 94 mg/dL 70 - 100 mg/dL [facility] Work Phone: [phone] Potassium [Moles/Vol] 4.3 mmol/L 3.5 - 5.1 mmol/L [facility] Work Phone: [phone] Sodium [Moles/Vol] 137 mmol/L 135 - 145 mmol/L [facility] Work Phone: [phone] Urea nitrogen [Mass/Vol] 53 mg/dL High 7 - 20 mg/d L [facility] Work Phone: [phone] CBC Auto DifferentialOrdered By: Delon Jessica on 10-22-2019 Absolute Baso # 0.1 10*3/uL 0 - 0.2 10*3/uL [facility] Work Phone: [phone] Absolute Neut # 5.9 10*3/uL 1.8 - 7 10*3/uL [employer] Work Phone: [phone] Basophils/100 WBC (Bld) 0.9 % 0 - 2 % S [facility] Work Phone: [phone] Eosinophils (Bld) [#/Vol] 0.3 10*3/uL 0 - 0.5 10*3/uL [facility] Work Phone: [phone] Eosinophils/100 WBC (Bld) 3.0 % 1 - 6 % [facility] Work Phone: 22 Erythrocyte distribution width (RBC) [Ratio] 14.2 % 11.5 - 14.5 % [employer] Work Phone: 1 22 Granulocytes/100 WBC (Bld) 63.0 % 40 - 80 % [facility] Work Phone: Hematocrit (Bld) [Volume fraction] 27.7 % Low 40 - 52 % [employer] Work Phone: 1 Hemoglobin (Bld) [Mass/Vol] 9.4 g/dL Low 13 - 18 g/dL [employer] Work Phone: Interpretation and review of laboratory results Abnormal [employer] Work Phone: Lymphocytes (Bld) [#/Vol] 1.6 10*3/uL 1 - 4.3 10*3/uL [employer] Work Phone: 22 Lymphocytes/100 WBC (Bld) 17.2 % Low 20 - 40 % [employer] Work Phone: MCH (RBC) [Entitic mass] 29.3 pg 26 - 34 pg [employer] Work Phone: MCHC 33.8 % 32 - 36 % [employer] Work Phone: MCV (RBC) [Entitic vol] 86.7 fL 80 - 98 fL [facility] Work Phone: 22 Monocytes (Bld) [#/Vol] 1.5 10*3/uL High 0 - 0.8 10*3/uL [employer] Work Phone: [phone] 22 Monocytes/100 WBC (Bld) 15.9 % High 2 - 10 % [facility] Work Phone: Platelet mean volume (Bld) [Entitic vol] 8.0 fL 7.4 - 10.4 fL [employer] Work Phone: 22 Platelets (Bld) [#/Vol] 264 10*3/uL 140 - 440 10*3/uL [employer] Work Phone: 22 RBC (Bld) [#/Vol] 3.20 10*6/uL Low 4.4 - 5.9 10*6/uL [facility] Work Phone: 1 WBC (Bld) [#/Vol] 9.3 10*3/uL 3.6 - 10.7 10*3/uL [facility] Work Phone: 1 Test Performed by [facility], [facility] [address] [place] [address] [facility] Work Phone: Calcium, IonizedOrdered By: Delon Jessica on 10-22-2019 Interpretation and review of laboratory results Abnormal [facility] Work Phone: Ionized Ca 4.20 mg/dL Low 4.3 - 5.2 mg/dL [facility] Work Phone: pH (Bld) 7.43 [pH] [facility] Work Phone: Test Performed by [facility], [facility] [address] Work Phone: FOLATEOrdered By: Earlene deluna on 10-22-2019 Folate 9.2 ng/mL 2.8 - 20 ng/mL [facility] Work Phone: 1 Glomerular Basement Membrane (GBM) Antibody IgGOrdered By: Jeana Pedraza on 10-22-2019 GBM Ab, IgG (IFA) Negative Negative NA [facility] Work Phone: Comment on above: INTERPRETIVE INFORMA TION: GBM Ab, IgG (IFA) When present, IgG antibody to glomerular basement membrane (GBM) antigen detected by either indirect fluorescent antibody (IFA) or multiplex bead assay helps support a diagnosis of Goodpasture syndrome. However, the combined result of both assays performed during initial evaluation improves the diagnostic sensitivity for disease. A positive result in one or both assays should be confirmed by renal biopsy. Test developed and characteristics determined by [employer]. See Compliance Statement D: [email or web address]/CS Performed by [employer], [address] [place] [address] [email or web address], Malvin Slade MD, Lab. Director Iron and TIBCOrdered By: Al Irving on 10-22-2019 Interpretation and review of laboratory results Abnormal [facility] Work Phone: 1 Iron [Mass/Vol] 64 ug/dL 49 - 181 ug/dL [facility] Work Phone: Sat 27 % 15 - 50 % [facility] Work Phone: TIBC 234 ug/dL Low 261 - 497 ug/dL [facility] Work Phone: 1 Test Performed by [facility], [address] [place] [address] [place] [address] [facility] Work Phone: MagnesiumOrdered By: Delon Jessica on 10-22-2019 Magnesium [Mass/Vol] 2.0 mg/dL 1.6 - 2 .3 mg/dL [facility] Work Phone: 1 No Panel InformationOrdered By: Earlene Irving on 10-22-2019 Test Performed by [facility], [address] [place] [address] [facility] Work Phone: No Panel InformationOrdered By: Delon Jessica on 10-22-2019 Interpretation and review of laboratory results Abnormal [facility] Work Phone: Test Performed by [employer] [facility], [address] [place] [address] [facility] Work Phone: PhosphorusOrdered By: Patrick Jessica on 10-22-2019 Phosphate [Mass/Vol] 8.7 mg/dL High 2.5 - 4 .5 mg/dL [facility] Work Phone: T4, FREEOrdered By: Earlene toure on 10-22-2019 Free T4 [Mass/Vol] 1.16 ng/dL 0.78 - 2. 19 ng/dL [facility] Work Phone: Test Performed by [facility], [address] [place] [address] [facility] Work Phone: TSH without ReflexOrdered By : Earlene Irving on 10-22-2019 TSH 0.836 u[IU]/mL 0.465 - 4.68 u[IU]/mL [facility] Work Phone: Test Performed by [facility] [employer] [facility], [address], [place], [place] [address] [facility] Work Phone: VL RENAL ARTERIAL DUPLEX COM PLETEOrdered By: Brett Encarnacion on 10-22-2019 [facility] Renal Artery Duplex Ordering Physician: Brett Encarnacion Stamping Die Maker Bench: Laura Walsh Interpreting Physician: Luciano Shannon Location: [facility] Indications: Hypertension. Smoking history. Acute Kidney Injury Conclusions 1. Study is negative for hemodynamically significant stenosis involving the left renal artery. 2. Although there are elevated velocities present, based upon ratio criteria, there does not appear to be a significant stenosis involving the right renal artery. 3. The right renal veinappears patent and demonstrates normal phasicity. 4. The left renal veinappears patent and demonstrates normal phasicity. 5. The right kidney size is within normal limits. 6. The left kidney size is within normal limits. 7. High resistance waveforms throughout bilateral History: Risk factors: Current tobacco use. Study data: Complete renal arterial duplex. Duplex scan, grayscale 2D imaging, color Doppler imaging, and spectral Doppler analysis. Location: Vascular laboratory. Procedure: A vascular evaluation was performed with the patient in the supine position. Images were obtained using a Wally E9 vascular ultrasound machine. The abdominal aorta, the right renal and left renal arteries, and the left renal and right renal veins were studied. The study was technically limited due to bowel gas. Technically difficult exam. High resistive flow noted throughout the right and left renal's. Arterial flow: + +-- ---------+ -+----+-------+----- + +Location +PSV(cm/sec)+EDV(cm/ sec)+RI +AT +Comment + + +-- ---------+ -+----+-------+----- + +R renal artery +142 +14 +----+-------+High Resistive + +max , origin + + + + +Flow + + +-- ---------+ -+----+-------+----- + +R renal artery +76 +2 +----+-------+High Resistive + +max , prox + + + + +Flow + + +-- ---------+ -+----+-------+----- + +R renal artery +157 +12 +----+-------+High Resistive + +max , mid + + + + +Flow + + +-- ---------+ -+----+-------+----- + +R renal artery +183 +14 +----+-------+High Resistive + +max , distal + + + + +Flow + + +-- ---------+ -+----+-------+----- + +R segmental +10 +4 +0.56+0.04 +High Resistive + + + + + +sec +Flow + + +-- ---------+ -+----+-------+----- + +R arcuate +14 +4 +0.74+-------+High Resistive + + + + + + +Flow + + +-- ---------+ -+----+-------+----- + +L renal artery +125 +39 +----+-------+High Resistive + +max , origin + + + + +Flow + + +-- ---------+ -+----+-------+----- + +L renal artery +174 +13 +----+-------+High Resistive + +max , prox + + + + +Flow + + +-- ---------+ -+----+-------+----- + +L renal artery +156 +21 +----+-------+High Resistive + +max , mid + + + + +Flow + + +-- ---------+ -+----+-------+----- + +L renal artery +115 +16 +----+-------+High Resistive + +max , distal + + + + +Flow + + +-- ---------+ -+----+-------+----- + +L segmental +14 +4 +0.73+0.06 +High Resistive + + + + + +sec +Flow + + +-- ---------+ -+----+-------+----- + +L arcuate +32 +6 +0.82+-------+High Resistive + + + + + + +Flow + + +-- ---------+ -+----+-------+----- + Kidney le (more content not included)... [facility] Work Phone: Mike, [facility] Incoming Cardiology Results From [facility] - 10/22/2019 3:01 PM EST [facility] Renal Artery Duplex Ordering Physician: Brett Encarnacion Stamping Die Maker Bench: Laura Walsh Interpreting Physician: Luciano Shannon Location: [facility] Indications: Hypertension. Smoking history. Acute Kidney Injury Conclusions 1. Study is negative for hemodynamically significant stenosis involving the left renal artery. 2. Although there are elevated velocities present, based upon ratio criteria, there does not appear to be a significant stenosis involving the right renal artery. 3. The right renal veinappears patent and demonstrates normal phasicity. 4. The left renal veinappears patent and demonstrates normal phasicity. 5. The right kidney size is within normal limits. 6. The left kidney size is within normal limits. 7. High resistance waveforms throughout bilateral History: Risk factors: Current tobacco use. Study data: Complete renal arterial duplex. Duplex scan, grayscale 2D imaging, color Doppler imaging, and spectral Doppler analysis. Location: Vascular laboratory. Procedure: A vascular evaluation was performed with the patient in the supine position. Images were obtained using a Wally E9 vascular ultrasound machine. The abdominal aorta, the right renal and left renal arteries, and the left renal and right renal veins were studied. The study was technically limited due to bowel gas. Technically difficult exam. High resistive flow noted throughout the right and left renal's. Arterial flow: + +-- ---------+ -+----+-------+----- + +Location +PSV(cm/sec)+EDV(cm/ sec)+RI +AT +Comment + + +-- ---------+ -+----+-------+----- + +R renal artery +142 +14 +----+-------+High Resistive + +max , origin + + + + +Flow + + +-- ---------+ -+----+-------+----- + +R renal artery +76 +2 +----+-------+High Resistive + +max , prox + + + + +Flow + + +-- ---------+ -+----+-------+----- + +R renal artery +157 +12 +----+-------+High Resistive + +max , mid + + + + +Flow + + +-- ---------+ -+----+-------+----- + +R renal artery +183 +14 +----+-------+High Resistive + +max , distal + + + + +Flow + + +-- ---------+ -+----+-------+----- + +R segmental +10 +4 +0.56+0.04 +High Resistive + + + + + +sec +Flow + + +-- ---------+ -+----+-------+----- + +R arcuate +14 +4 +0.74+-------+High Resistive + + + + + + +Flow + + +-- ---------+ -+----+-------+----- + +L renal artery +125 +39 +----+-------+High Resistive + +max , origin + + + + +Flow + + +-- ---------+ -+----+-------+----- + +L renal artery +174 +13 +----+-------+High Resistive + +max , prox + + + + +Flow + + +-- ---------+ -+----+-------+----- + +L renal artery +156 +21 +----+-------+High Resistive + +max , mid + + + + +Flow + + +-- ---------+ -+----+-------+----- + +L renal artery +115 +16 +----+-------+High Resistive + +max , distal + + + + +Flow + + +-- ---------+ -+----+-------+----- + +L segmental +14 +4 +0.73+0.06 +High Resistive + + + + + +sec +Flow + + +-- ---------+ -+----+-------+----- + +L arcuate +32 +6 +0.82+-------+High Resistive + + + + + + +Flow + + +-- ---------+ -+----+-------+----- + Kidney length: +---------+--------- ---+ + + +Right kidney+Left kidney+ +---------+--------- ---+ + +Long axis+11.29 cm +12.82 cm + +---------+--------- ---+ + Prepared and electronically signed by Luciano Shannon 10/22/2019 15:01 [employer] Work Phone: [phone] Vitamin [id number] By: Akin Irving on 10-22-2019 Cobalamin (Vitamin B12) [Mass/Vol] 959 pg/mL High 239 - 931 pg/mL [facility] Work Phone: [phone] Interpretation and review of laboratory results Abnormal [employer] Work Phone: [phone] Basic Metabolic PanelOrdered By: Delon Jessica on 10-21-2019 Anion gap [Moles/Vol] 16 mmol/L [facility] Work Phone: [phone] Calcium [Mass/Vol] 8.7 mg/dL 8.4 - 10. 4 mg/dL [facility] Work Phone: [phone] Chloride [Moles/Vol] 94 mmol/L Low 98 - 10 7 mmol/L [facility] Work Phone: [phone] CO2 [Moles/Vol] 25 mmol/L 22 - 30 mmol/L [facility] Work Phone: [phone] Creatinine [Mass/Vol] 11.16 mg/dL High 0.52 - 1.25 mg/dL [facility] Work Phone: [phone] EGFR IF NonAfrican Citizen Of [place] 4.8 mL/min >60 [facility] Work Phone: [phone] Comment on above: Source- MDRD equatio n with creatinine calibration to IDMS(NKDEP) eGFR not recommended for drug dose adjustment GFR/1.73 sq M.predicted among blacks MDRD (S/P/Bld) [Vol rate/Area] 5.8 mL/min/{1.73_m2} >60 [facility] Work Phone: Glucose [Mass/Vol] 103 mg/dL High 70 - 100 mg/dL [facility] Work Phone: Potassium [Moles/Vol] 4.9 mmol/L 3.5 - 5.1 mmol/L [facility] Work Phone: Sodium [Moles/Vol] 135 mmol/L 135 - 145 mmol/L [facility] Work Phone: Urea nitrogen [Mass/Vol] 83 mg/dL High 7 - 20 mg/d L [facility] Work Phone: CBC Auto DifferentialOrdered By: Delon Jessica on 10-21-2019 Absolute Baso # 0.1 10*3/uL 0 - 0.2 10*3/uL [facility] Work Phone: Absolute Neut # 6.4 10*3/uL 1.8 - 7 10*3/uL [employer] Work Phone: Basophils/100 WBC (Bld) 0.9 % 0 - 2 % S [facility] Work Phone: Eosinophils (Bld) [#/Vol] 0.2 10*3/uL 0 - 0.5 10*3/uL [employer] Work Phone: Eosinophils/100 WBC (Bld) 2.5 % 1 - 6 % [facility] Work Phone: Erythrocyte distribution width (RBC) [Ratio] 14.8 % High 11.5 - 14.5 % [facility] Work Phone: Granulocytes/100 WBC (Bld) 64.7 % 40 - 80 % [facility] Work Phone: Hematocrit (Bld) [Volume fraction] 27.6 % Low 40 - 52 % [employer] Work Phone: Hemoglobin (Bld) [Mass/Vol] 9.7 g/dL Low 13 - 18 g/dL [facility] Work Phone: Comment on above: Post Transfusion Interpretation and review of laboratory results Abnormal [facility] Work Phone: 1 Lymphocytes (Bld) [#/Vol] 1.8 10*3/uL 1 - 4.3 10*3/uL [facility] Work Phone: 1 Lymphocytes/100 WBC (Bld) 18.5 % Low 20 - 40 % [facility] Work Phone: 1 MCH (RBC) [Entitic mass] 30.0 pg 26 - 34 pg [facility] Work Phone: 1 MCHC 35.3 % 32 - 36 % [facility] Work Phone: 1 MCV (RBC) [Entitic vol] 84.8 fL 80 - 98 fL [facility] Work Phone: Monocytes (Bld) [#/Vol] 1.3 10*3/uL High 0 - 0.8 10*3/uL [facility] Work Phone: 1 Monocytes/100 WBC (Bld) 13.4 % High 2 - 10 % S [facility] Work Phone: 1 Platelet mean volume (Bld) [Entitic vol] 7.8 fL 7.4 - 10.[address] [facility] Work Phone: 1 Platelets (Bld) [#/Vol] 299 10*3/uL 140 - 440 10*3/uL [facility] Work Phone: RBC (Bld) [#/Vol] 3.25 10*6/uL Low 4.4 - 5.9 10*6/uL [facility] Work Phone: WBC (Bld) [#/Vol] 9.8 10*3/uL 3.6 - 10.7 10*3/uL [facility] Work Phone: 1 Test Performed by [facility] [facility] Work Phone: [phone] Calcium, IonizedOrdered By: Delon Jessica on 10-21-2019 Interpretation and review of laboratory results Abnormal [facility] Work Phone: 1 Ionized Ca 4.10 mg/dL Low 4.3 - 5.2 mg/dL [facility] Work Phone: [phone] pH (Bld) 7.41 [pH] [facility] Work Phone: Test Performed by [facility], [address] [place] [address] [employer] Work Phone: 1 MagnesiumOrdered By: Delon Jessica on 10-21-2019 Magnesium [Mass/Vol] 1.9 mg/dL 1.6 - 2 .3 mg/dL [facility] Work Phone: [phone] Panel InformationOrdered By: Delon Jessica on 10-21-2019 Interpretation and review of laboratory results Abnormal [facility] Work Phone: [phone] Test Performed by [employer] [facility], [address] [place] [address] [employer] Work Phone: [phone] PERIPHERAL BLOOD SMEAR, PATH REVIEWOrdered By: Jeana Pedraza on 10-21-2019 Peripheral Smear see below [facility] Work Phone: [phone] Comment on above: See report under Fredy gical Pathology. Test Performed by [facility], [address] [place] [address] [employer] Work Phone: [phone] PhosphorusOrdered By: Patrick Jessica on 10-21-2019 Phosphate [Mass/Vol] 9.2 mg/dL High 2.5 - 4 .5 mg/dL [facility] Work Phone: [phone] US RETROPERITONEAL COMPLETEO rdered By: Randolph Euceda on 10-21-2019 Patient Name: GLENN SNYDER ---Ultrasound--- Exam Date/Time 10/21/2019 15:32:01 EST Exam US Retroperitoneal Complete Ordering Physician [id number] -RANDOLPH EUCEDA Accession Number [id number] CPT4 Codes 95376 () Reason For Exam blossom Report US RETROPERITONEAL COMPLETE CLINICAL INDICATION: Acute renal insufficiency TECHNIQUE: Complete ultrasound of the retroperitoneal structures COMPARISON: 10/19/2019 FINDINGS: RIGHT KIDNEY: Size: 10.1 x 5.7 x 6.2 cm Echogenicity: Increased Parenchymal thickness: normal Contour: smooth Pelvicalyceal dilatation: none Calculus: none Mass: none Cyst: none LEFT KIDNEY: Size: 11.5 x 6.5 x 5.7 cm Echogenicity: Increased Parenchymal thickness: normal Contour: smooth Pelvicalyceal dilatation: none Calculus: none Mass: none Cyst: none Bladder: normal IMPRESSION: Echogenic kidneys, which can be seen with medical renal disease. No hydronephrosis. Report Dictated on --- Final --- Dictating Physician: MD KEN KEVIN Signed Date and Time: 10/21/2019 7:30 pm Signed by: MD KEN KEVIN Transcribed Date and Time: 10/21/2019 7:31 [facility] Work Phone: [facility], [facility] Incoming Radiology Results From [facility] - 10/21/2019 7:32 PM EST Patient Name: GLENN SNYDER ---Ultrasound--- Exam Date/Time 10/21/2019 15:32:01 EST Exam US Retroperitoneal Complete Ordering Physician RANDOLPH PALAFOX Accession Number [id number] CPT4 Codes 14350 () Reason For Exam blossom Report US RETROPERITONEAL COMPLETE CLINICAL INDICATION: Acute renal insufficiency TECHNIQUE: Complete ultrasound of the retroperitoneal structures COMPARISON: 10/19/2019 FINDINGS: RIGHT KIDNEY: Size: 10.1 x 5.7 x 6.2 cm Echogenicity: Increased Parenchymal thickness: normal Contour: smooth Pelvicalyceal dilatation: none Calculus: none Mass: none Cyst: none LEFT KIDNEY: Size: 11.5 x 6.5 x 5.7 cm Echogenicity: Increased Parenchymal thickness: normal Contour: smooth Pelvicalyceal dilatation: none Calculus: none Mass: none Cyst: none Bladder: normal IMPRESSION: Echogenic kidneys, which can be seen with medical renal disease. No hydronephrosis. Report Dictated on --- Final --- Dictating Physician: MD KEN KEVIN Signed Date and Time: 10/21/2019 7:30 pm Signed by: MD KEN KEVIN Transcribed Date and Time: 10/21/2019 7:31 [facility] Work Phone: [phone] ABDOMEN (KUB) (SINGLE AP VIEW)Ordered By: Brett Encarnacion on 10-21-2019 Patient Name: GLENN SNYDER ---Diagnostic Radiology--- Exam Date/Time 10/21/2019 18:02:19 EST Exam CR Abdomen AP Ordering Physician MD ENCARNACION MATTHEW Accession Number [id number] CPT4 Codes 07802 () Reason For Exam vomiting Report ABDOMEN SINGLE VIEW CLINICAL INDICATION: Abdominal pain and vomiting. TECHNIQUE: KUB view(s) of the abdomen. COMPARISON: None. FINDINGS: Nonspecific bowel gas pattern without features suggestive of mechanical obstruction. No apparent pneumoperitoneum. No abnormal calcifications. Osseous structures grossly unremarkable. IMPRESSION: 1. Nonspecific bowel gas pattern, which may represent adynamic ileus. Follow-up may be warranted. Report Dictated on Workstation: EDWARD --- Final --- Dictating Physician: MD MILAN WENDELL Signed Date and Time: 10/21/2019 6:29 pm Signed by: MD MILAN WENDELL Transcribed Date and Time: 10/21/2019 6:30 [facility] Work Phone: Mike, [facility] Incoming Radiology Results From [facility] - 10/21/2019 6:30 PM EST Patient Name: GLENN SNYDER ---Diagnostic Radiology--- Exam Date/Time 10/21/2019 18:02:19 EST Exam CR Abdomen AP Ordering Physician MD ENCARNACION MATTHEW Accession Number [id number] CPT4 Codes 34015 () Reason For Exam vomiting Report ABDOMEN SINGLE VIEW CLINICAL INDICATION: Abdominal pain and vomiting. TECHNIQUE: KUB view(s) of the abdomen. COMPARISON: None. FINDINGS: Nonspecific bowel gas pattern without features suggestive of mechanical obstruction. No apparent pneumoperitoneum. No abnormal calcifications. Osseous structures grossly unremarkable. IMPRESSION: 1. Nonspecific bowel gas pattern, which may represent adynamic ileus. Follow-up may be warranted. Report Dictated on Workstation: EDWARD --- Final --- Dictating Physician: MD MILAN WENDELL Signed Date and Time: 10/21/2019 6:29 pm Signed by: MD MILAN WENDELL Transcribed Date and Time: 10/21/2019 6:30 [facility] Work Phone: ANAOrdered By: Jeana Pedraza on 10-20-2019 CIARAN TITER <1:40 <1:40 {titer} [facility] Work Phone: Test Performed by [employer] [facility] [place] [address] [employer] Work Phone: Anti-Neutrophilic Cytoplasmi c AntibodyOrdered By: Jeana Pedraza on 10-20-2019 C-ANCA Not detected Not-Detected {titer} [facility] Work Phone: p-ANCA Titer Not detected Not-Detected {titer} [facility] Work Phone: Test Performed by [employer], [facility] [place] [address] [employer] Work Phone: Basic Metabolic PanelOrdered By: Brett Encarnacion on 10-20-2019 Anion gap [Moles/Vol] 15 mmol/L [facility] Work Phone: Calcium [Mass/Vol] 8.4 mg/dL 8.4 - 10. 4 mg/dL [facility] Work Phone: Chloride [Moles/Vol] 94 mmol/L Low 98 - 10 7 mmol/L [facility] Work Phone: CO2 [Moles/Vol] 26 mmol/L 22 - 30 mmol/L [facility] Work Phone: Creatinine [Mass/Vol] 9.4 mg/dL High 0.52 - 1.25 mg/dL [facility] Work Phone: EGFR IF NonAfrican Citizen Of [place] 5.9 mL/min >60 [facility] Work Phone: Comment on above: Source- MDRD equatio n with creatinine calibration to IDMS(NKDEP) eGFR not recommended for drug dose adjustment GFR/1.73 sq M.predicted among blacks MDRD (S/P/Bld) [Vol rate/Area] 7.1 mL/min/{1.73_m2} >60 [facility] Work Phone: Glucose [Mass/Vol] 110 mg/dL High 70 - 100 mg/dL [facility] Work Phone: [phone] Interpretation and review of laboratory results Abnormal [facility] Work Phone: [phone] Potassium [Moles/Vol] 4.0 mmol/L 3.5 - 5.1 mmol/L [facility] Work Phone: [phone] Sodium [Moles/Vol] 135 mmol/L 135 - 145 mmol/L [facility] Work Phone: [phone] Urea nitrogen [Mass/Vol] 76 mg/dL High 7 - 20 mg/d L [facility] Work Phone: [phone] Test Performed by [employer] [facility], [address] [place] [address] [facility] Work Phone: [phone] Basic Metabolic PanelOrdered By: Delon Jessica on 10-20-2019 Anion gap [Moles/Vol] 18 mmol/L [facility] Work Phone: [phone] Calcium [Mass/Vol] 7.9 mg/dL Low 8.4 - 10. 4 mg/dL [facility] Work Phone: [phone] Chloride [Moles/Vol] 95 mmol/L Low 98 - 10 7 mmol/L [facility] Work Phone: [phone] CO2 [Moles/Vol] 24 mmol/L 22 - 30 mmol/L [facility] Work Phone: [phone] Creatinine [Mass/Vol] 13.53 mg/dL High 0.52 - 1.25 mg/dL [facility] Work Phone: [phone] EGFR IF NonAfrican Citizen Of [place] 3.9 mL/min >[address] [facility] Work Phone: [phone] Comment on above: Source- MDRD equatio n with creatinine calibration to IDMS(NKDEP) eGFR not recommended for drug dose adjustment GFR/1.73 sq M.predicted among blacks MDRD (S/P/Bld) [Vol rate/Area] 4.7 mL/min/{1.73_m2} >60 [facility] Work Phone: [phone] Glucose [Mass/Vol] 102 mg/dL High 70 - 100 mg/dL [facility] Work Phone: [phone] Interpretation and review of laboratory results Abnormal [facility] Work Phone: [phone] Potassium [Moles/Vol] 4.7 mmol/L 3.5 - 5.1 mmol/L [employer] Work Phone: Sodium [Moles/Vol] 136 mmol/L 135 - 145 mmol/L [facility] Work Phone: Urea nitrogen [Mass/Vol] 123 mg/dL High 7 - 20 mg/d L [facility] Work Phone: 1 Test Performed by [facility], [address] [place] [address] [place] [address] [employer] Work Phone: CBC Auto DifferentialOrdered By: Delon Jessica on 10-20-2019 Absolute Baso # 0.0 10*3/uL 0 - 0.2 10*3/uL [employer] Work Phone: Absolute Neut # 6.2 10*3/uL 1.8 - 7 10*3/uL [employer] Work Phone: Basophils/100 WBC (Bld) 0.4 % 0 - 2 % S [facility] Work Phone: Eosinophils (Bld) [#/Vol] 0.1 10*3/uL 0 - 0.5 10*3/uL [employer] Work Phone: Eosinophils/100 WBC (Bld) 1.1 % 1 - 6 % [employer] Work Phone: Erythrocyte distribution width (RBC) [Ratio] 13.4 % 11.5 - 14.5 % [employer] Work Phone: Granulocytes/100 WBC (Bld) 69.5 % 40 - 80 % [facility] Work Phone: Hematocrit (Bld) [Volume fraction] 19.3 % Low 40 - 52 % [facility] Work Phone: Hemoglobin (Bld) [Mass/Vol] 6.6 g/dL Critically low 13 - 18 g/dL [employer] Work Phone: Interpretation and review of laboratory results Abnormal [employer] Work Phone: Lymphocytes (Bld) [#/Vol] 1.6 10*3/uL 1 - 4.3 10*3/uL [facility] Work Phone: [phone] Lymphocytes/100 WBC (Bld) 18.3 % Low 20 - 40 % [facility] Work Phone: 1 MCH (RBC) [Entitic mass] 29.4 pg 26 - 34 pg [facility] Work Phone: MCHC 34.1 % 32 - 36 % [facility] Work Phone: 1 MCV (RBC) [Entitic vol] 86.2 fL 80 - 98 fL S [employer] Work Phone: Monocytes (Bld) [#/Vol] 1.0 10*3/uL High 0 - 0.8 10*3/uL [employer] Work Phone: 1 Monocytes/100 WBC (Bld) 10.7 % High 2 - 10 % S [employer] Work Phone: Platelet mean volume (Bld) [Entitic vol] 7.4 fL 7.4 - 10.4 fL [employer] Work Phone: Platelets (Bld) [#/Vol] 267 10*3/uL 140 - 440 10*3/uL [employer] Work Phone: RBC (Bld) [#/Vol] 2.24 10*6/uL Low 4.4 - 5.9 10*6/uL [employer] Work Phone: WBC (Bld) [#/Vol] 9.0 10*3/uL 3.6 - 10.7 10*3/uL [facility] Work Phone: Calcium, IonizedOrdered By: Delon Jessica on 10-20-2019 Interpretation and review of laboratory results Abnormal [employer] Work Phone: Ionized Ca 3.80 mg/dL Low 4.3 - 5.2 mg/dL [facility] Work Phone: pH (Bld) 7.41 [pH] [employer] Work Phone: Test Performed by [employer], [address] [place] [address] [employer] Work Phone: Hemoglobin and Hematocrit, B loodOrdered By: Brett Encarnacion on 10-20-2019 Hematocrit (Bld) [Volume fraction] 25.2 % Low 40 - 52 % [facility] Work Phone: 1 Hemoglobin (Bld) [Mass/Vol] 9.0 g/dL Low 13 - 18 g/dL [facility] Work Phone: Interpretation and review of laboratory results Abnormal [facility] Work Phone: 1 Test Performed by [facility], [address] [place] [address] [employer] Work Phone: Hemoglobin and Hematocrit, B loodOrdered By: Delno Jessica on 10-20-2019 Hematocrit (Bld) [Volume fraction] 19.6 % Low 40 - 52 % [facility] Work Phone: Hemoglobin (Bld) [Mass/Vol] 6.7 g/dL Critically low 13 - 18 g/dL [facility] Work Phone: [phone] Interpretation and review of laboratory results Abnormal [facility] Work Phone: 1 Test Performed by [employer], [address] [place] [address] [employer] Work Phone: Laboratory - Blood bankOrder ed By: Delon Jessica on 10-20-2019 ABO and Rh group Nom (Bld) 9500 [facility] Work Phone: MagnesiumOrdered By: Delon Jessica on 10-20-2019 Magnesium [Mass/Vol] 1.8 mg/dL 1.6 - 2 .3 mg/dL [facility] Work Phone: No Panel InformationOrdered By: Delon Jessica on 10-20-2019 Test Performed by [facility], [address] [place], [place] [address]A Work Phone: Test Performed by [facility], [address] [place], [place] [address]A Work Phone: PREPARE RBC (CROSSMATCH), 2 UnitsOrdered By: Delon Jessica on 10-20-2019 Blood product unit ID (Dose) [#] [id number] [employer] Work Phone: Blood product unit ID (Dose) [#] [id number] [facility] Work Phone: [phone] Dispense Status Blood Bank transfused [facility] Work Phone: [phone] Expiration Date [id number] [facility] Work Phone: [phone] Product Code Blood Bank [id number] S [facility] Work Phone: [phone] [facility] Work Phone: [phone] PhosphorusOrdered By: Patrick Jessica on 10-20-2019 Interpretation and review of laboratory results Abnormal [facility] Work Phone: [phone] Phosphate [Mass/Vol] 12.3 mg/dL High 2.5 - 4 .5 mg/dL [facility] Work Phone: [phone] RBC MORPHOLOGYOrdered By: Caleb Jessica on 10-20-2019 Hypochromia Slight [facility] Work Phone: [phone] Poikilocytes Slight [facility] Work Phone: [phone] RBC morphology finding Nom (Bld) ABNORMAL [facility] Work Phone: [phone] Surgical PathologyOrdered By : Jeana Pedraza on 10-20-2019 Surgical Pathology Report SEE BELOW [facility] Work Phone: [phone] [id number] [facility] PATHOLOGY AND LABORATORY MEDICINE [address] [place] [address] FINAL PERIPHERAL BLOOD REPORT NAME: GLENN SNYDER : 1965 53 Y M BILLING NO.: [id number] LOCATION: [facility] [id number] PROCEDURE 10/19/2019 DATE: SURGEON: JEANA PEDRAZA MD RECEIVED DATE: 10/20/2019 ATTENDING BRETT ENCARNACION REPORT DATE: 10/20/2019 : COPIES TO: DIAGNOSIS: NORMOCYTIC ANEMIA WITH ANISOCYTOSIS, INCLUDING SCHISTOCYTES AND MILD AGGLUTINATION, RULE OUT ANEMIA OF CHRONIC INFLAMMATION/RENAL DISEASE, IRON/NUTRITIONAL DEFICIENCIES, COAGULOPATHY AND/OR PARAPROTEINEMIA NO BLASTS OR DYSGRANULOPOIESIS IS SEEN. [employer] STORYWRITER/VIDEO GAMES STORYWRITER Signature> YOHANNES DIAL M.D. CLINICAL INFORMATION: Peripheral Smear SPECIMEN: PERIPHERAL BLOOD SMEAR GROSS DESCRIPTION: Peripheral smear slide prepared for evaluation. ASJ/JC Disclaimer: The following statement applies to all immunohistochemistry , in situ hybridization, molecular studies, and immunofluorescence testing. The use of one or more reagents in the above tests is regulated as an analyte specific reagent (ASR). These tests were developed and their performance characteristics determined by the clinical laboratories of [facility] [employer] [facility]. They have not been cleared by the US Food and Drug Administration (FDA). The FDA has determined that such clearance or approval is not necessary. All the above immunostains were performed on paraffin embedded tissue. Appropriate positive and negative controls (where applicable) were run in parallel with the patient's specimen; these controls showed expected staining pattern, with acceptable intensity of staining. Immunohistochemical assays have not been validated on decalcified tissues. Results should be interpreted with caution given the raised possibility of false negativity on decalcified specimens. DEPARTMENT OF PATHOLOGY AND LABORATORY MEDICINE [place], [place] [address] [facility] Work Phone: Add On Lab TestOrdered By: Michelle Encarnacion on 10-19-2019 Add On Rejected [facility] Work Phone: 1 Test Performed by [employer], [address] [place], [place] [address] [facility] Work Phone: 1 Add On Lab TestOrdered By: Cecil Nieves on 10-19-2019 Add On Accepted [facility] Work Phone: 1 Comment on above: Specimen available & acceptable for analysis. Test Performed by [employer], [address] [place], [place] [address] [facility] Work Phone: 1 Add On Accepted [facility] Work Phone: Comment on above: Specimen available & acceptable for analysis. Test Performed by [employer], [address] [place], [place] [address] [facility] Work Phone: 1 Basic Metabolic PanelOrdered By: Brett Encarnacion on 10-19-2019 Anion gap [Moles/Vol] 20 mmol/L [facility] Work Phone: 1 Calcium [Mass/Vol] 8.4 mg/dL 8.4 - 10. 4 mg/dL [facility] Work Phone: Chloride [Moles/Vol] 96 mmol/L Low 98 - 10 7 mmol/L [facility] Work Phone: CO2 [Moles/Vol] 18 mmol/L Low 22 - 30 mmol/L [facility] Work Phone: Creatinine [Mass/Vol] 12.26 mg/dL High 0.52 - 1.25 mg/dL [facility] Work Phone: EGFR IF NonAfrican Citizen Of [place] 4.3 mL/min >60 [facility] Work Phone: Comment on above: Source- MDRD equatio n with creatinine calibration to IDMS(NKDEP) eGFR not recommended for drug dose adjustment GFR/1.73 sq M.predicted among blacks MDRD (S/P/Bld) [Vol rate/Area] 5.2 mL/min/{1.73_m2} >60 [facility] Work Phone: Glucose [Mass/Vol] 109 mg/dL High 70 - 100 mg/dL [facility] Work Phone: 1 Interpretation and review of laboratory results Abnormal [facility] Work Phone: Potassium [Moles/Vol] 4.4 mmol/L 3.5 - 5.1 mmol/L [facility] Work Phone: Sodium [Moles/Vol] 134 mmol/L Low 135 - 145 mmol/L [facility] Work Phone: Urea nitrogen [Mass/Vol] 118 mg/dL High 7 - 20 mg/d L [facility] Work Phone: Test Performed by [facility], [address] [employer] Work Phone: Blood Occult Stool Screen #1 Ordered By: Callie Nieves on 10-19-2019 Hemoglobin.gastrointesti nal Ql (Stl) Negative Negative NA [facility] Work Phone: Test Performed by [facility], [address] [place], [place] [address] [employer] Work Phone: C3 ComplementOrdered By: Nadia Pedraza on 10-19-2019 C3 Complement 115 mg/dL 85 - 165 mg/dL [facility] Work Phone: C4 ComplementOrdered By: Nadia Pedraza on 10-19-2019 C4 Complement 37 mg/dL 14 - 44 mg/dL [facility] Work Phone: CBC Auto DifferentialOrdered By: Jeana Pedraza on 10-19-2019 Absolute Baso # 0.0 10*3/uL 0 - 0.2 10*3/uL [facility] Work Phone: Absolute Neut # 7.7 10*3/uL High 1.8 - 7 10*3/uL [employer] Work Phone: Basophils/100 WBC (Bld) 0.1 % 0 - 2 % S [facility] Work Phone: Eosinophils (Bld) [#/Vol] 0.0 10*3/uL 0 - 0.5 10*3/uL [facility] Work Phone: 1 22 Eosinophils/100 WBC (Bld) 0.0 % Low 1 - 6 % [employer] Work Phone: 1 Erythrocyte distribution width (RBC) [Ratio] 13.1 % 11.5 - 14.5 % [employer] Work Phone: Granulocytes/100 WBC (Bld) 93.1 % High 40 - 80 % [employer] Work Phone: Hematocrit (Bld) [Volume fraction] 26.9 % Low 40 - 52 % [employer] Work Phone: Hemoglobin (Bld) [Mass/Vol] 9.1 g/dL Low 13 - 18 g/dL [employer] Work Phone: Interpretation and review of laboratory results Abnormal [employer] Work Phone: Lymphocytes (Bld) [#/Vol] 0.4 10*3/uL Low 1 - 4.3 10*3/uL [employer] Work Phone: Lymphocytes/100 WBC (Bld) 5.1 % Low 20 - 40 % [employer] Work Phone: 1 MCH (RBC) [Entitic mass] 29.2 pg 26 - 34 pg [employer] Work Phone: MCHC 33.8 % 32 - 36 % [employer] Work Phone: MCV (RBC) [Entitic vol] 86.5 fL 80 - 98 fL [facility] Work Phone: Monocytes (Bld) [#/Vol] 0.1 10*3/uL 0 - 0.8 10*3/uL [facility] Work Phone: 22 Monocytes/100 WBC (Bld) 1.7 % Low 2 - 10 % S [facility] Work Phone: Platelet mean volume (Bld) [Entitic vol] 8.0 fL 7.4 - 10.4 fL [employer] Work Phone: Platelets (Bld) [#/Vol] 246 10*3/uL 140 - 440 10*3/uL [employer] Work Phone: RBC (Bld) [#/Vol] 3.11 10*6/uL Low 4.4 - 5.9 10*6/uL [employer] Work Phone: WBC (Bld) [#/Vol] 8.3 10*3/uL 3.6 - 10.7 10*3/uL [employer] Work Phone: Test Performed by [facility], [address] [place], [place], [place] [address] [employer] Work Phone: CT Abdomen Pelvis Wo Contras tOrdered By: Callie Nieves on 10-19-2019 Patient Name: GLENN SNYDER ---CT--- Exam Date/Time 10/19/2019 08:12:[address] Abdomen/Pelvis (No PO, No IV) Ordering Physician DO NIEVES DAVID J Accession Number [id number] CPT4 Codes 02948 (CT Abdomen/Pelvis (No PO, No IV)) Reason For Exam Elevated creatinine/potassium , possible renal etiology Report Examination: CT abdomen and pelvis Clinical Indication: Elevated creatinine, nausea vomiting and diarrhea, rectal bleeding, decreased urinary output Comparison: None Findings: Serial [address] images were obtained from the lung bases through the abdomen and pelvis without administration of intravenous or oral contrast. Coronal and sagittal images were reconstructed. Examination was viewed in multiple windows. Visualized lower lungs are clear. Liver demonstrates a small amount of hyperdensity seen along the left lobe at the ligamentum teres, focal fatty infiltration. Few dependent gallstones within the gallbladder. Gallbladder is incompletely distended. Wall is borderline thickened at 3 mm. Spleen, adrenals, kidneys and pancreas demonstrate no acute abnormality. There is moderate bilateral renal atrophy. Extrarenal pelvis bilaterally. No urologic calcification or hydronephrosis. Small subcentimeter lymph nodes within the retroperitoneum in the para- aortic region. No pathologically enlarged nodes. No ascites or free intraperitoneal air. There is mild gaseous distention of transverse colon. There is mild-to- moderate diverticulosis along the descending colon but no evidence of acute diverticulitis. No bowel wall thickening or pericolonic inflammation. Appendix is not definitely visualized but there is no pericecal inflammation. Bladder and prostate within normal limits. Mild atherosclerotic calcification distal aorta. Degenerative changes within the spine and hips. Impression: 1. Cholelithiasis with borderline thickened gallbladder wall likely related to incomplete distention. No surrounding inflammation. If concern for early acute cholecystitis, recommend ultrasound or hepatobiliary/HIDA imaging. 2. Moderate bilateral renal atrophy. No urologic calcification. 3. Bqnj-kf-aoccdtyk diverticulosis. No acute diverticulitis. Report Dictated on --- Final --- Dictating Physician: MD BUTCHER ANTHONY J Signed Date and Time: 10/19/2019 8:40 am Signed by: MD BUTCHER ANTHONY J Transcribed Date and Time: 10/19/2019 8:41 [facility] Work Phone: Mike, [facility] - 10/19/2019 8:42 AM EST Patient Name: GLENN SNYDER ---CT--- Exam Date/Time 10/19/2019 08:12:[address] Abdomen/Pelvis (No PO, No IV) Ordering Physician DO NIEVES DAVID J Accession Number [id number] CPT4 Codes 58321 (CT Abdomen/Pelvis (No PO, No IV)) Reason For Exam Elevated creatinine/potassium , possible renal etiology Report Examination: CT abdomen and pelvis Clinical Indication: Elevated creatinine, nausea vomiting and diarrhea, rectal bleeding, decreased urinary output Comparison: None Findings: Serial [address] images were obtained from the lung bases through the abdomen and pelvis without administration of intravenous or oral contrast. Coronal and sagittal images were reconstructed. Examination was viewed in multiple windows. Visualized lower lungs are clear. Liver demonstrates a small amount of hyperdensity seen along the left lobe at the ligamentum teres, focal fatty infiltration. Few dependent gallstones within the gallbladder. Gallbladder is incompletely distended. Wall is borderline thickened at 3 mm. Spleen, adrenals, kidneys and pancreas demonstrate no acute abnormality. There is moderate bilateral renal atrophy. Extrarenal pelvis bilaterally. No urologic calcification or hydronephrosis. Small subcentimeter lymph nodes within the retroperitoneum in the para- aortic region. No pathologically enlarged nodes. No ascites or free intraperitoneal air. There is mild gaseous distention of transverse colon. There is mild-to- moderate diverticulosis along the descending colon but no evidence of acute diverticulitis. No bowel wall thickening or pericolonic inflammation. Appendix is not definitely visualized but there is no pericecal inflammation. Bladder and prostate within normal limits. Mild atherosclerotic calcification distal aorta. Degenerative changes within the spine and hips. Impression: 1. Cholelithiasis with borderline thickened gallbladder wall likely related to incomplete distention. No surrounding inflammation. If concern for early acute cholecystitis, recommend ultrasound or hepatobiliary/HIDA imaging. 2. Moderate bilateral renal atrophy. No urologic calcification. 3. Fptk-du-uvogmhhi diverticulosis. No acute diverticulitis. Report Dictated on --- Final --- Dictating Physician: MD BUTCHER ANTHONY J Signed Date and Time: 10/19/2019 8:40 am Signed by: MD BUTCHER ANTHONY J Transcribed Date and Time: 10/19/2019 8:[address] [facility] Work Phone: Comprehensive Metabolic Pane lOrdered By: Callie Nieves on 10-19-2019 Albumin [Mass/Vol] 3.9 g/dL 3.5 - 5 g/dL [facility] Work Phone: ALP [Catalytic activity/Vol] 58 U/L 38 - 126 U/L [facility] Work Phone: [phone] ALT [Catalytic activity/Vol] 27 U/L 13 - 69 U/L [facility] Work Phone: Anion gap [Moles/Vol] 22 mmol/L [facility] Work Phone: [phone] AST [Catalytic activity/Vol] 41 U/L 15 - 46 U/L [facility] Work Phone: Bilirubin [Mass/Vol] 0.5 mg/dL 0.2 - 1 .3 mg/dL [facility] Work Phone: Calcium [Mass/Vol] 8.0 mg/dL Low 8.4 - 10. 4 mg/dL [facility] Work Phone: Chloride [Moles/Vol] 106 mmol/L 98 - 10 7 mmol/L [facility] Work Phone: CO2 [Moles/Vol] 8 mmol/L Low 22 - 30 mmol/L [facility] Work Phone: Creatinine [Mass/Vol] 17.04 mg/dL High 0.52 - 1.25 mg/dL [facility] Work Phone: [phone] IF NonAfrican Citizen Of [place] 3.0 mL/min >60 [facility] Work Phone: [phone] Comment on above: Source- MDRD equatio n with creatinine calibration to IDMS(NKDEP) eGFR not recommended for drug dose adjustment GFR/1.73 sq M.predicted among blacks MDRD (S/P/Bld) [Vol rate/Area] 3.6 mL/min/{1.73_m2} >60 [facility] Work Phone: [phone] Glucose [Mass/Vol] 93 mg/dL 70 - 100 mg/dL [facility] Work Phone: [phone] Interpretation and review of laboratory results Abnormal [facility] Work Phone: [phone] Potassium [Moles/Vol] 6.6 mmol/L Critically high 3.5 - 5.1 mmol/L [facility] Work Phone: [phone] Protein [Mass/Vol] 7.1 g/dL 6.3 - 8.2 g/dL [facility] Work Phone: [phone] Sodium [Moles/Vol] 136 mmol/L 135 - 145 mmol/L [facility] Work Phone: [phone] Urea nitrogen [Mass/Vol] 179 mg/dL High 7 - 20 mg/d L [facility] Work Phone: [phone] Test Performed by [facility], [address] [place] [address] [facility] Work Phone: [phone] Albumin [Mass/Vol] 4.3 g/dL 3.5 - 5 g/dL [facility] Work Phone: [phone] ALP [Catalytic activity/Vol] 68 U/L 38 - 126 U/L [facility] Work Phone: [phone] ALT [Catalytic activity/Vol] 31 U/L 13 - 69 U/L [facility] Work Phone: [phone] Anion gap [Moles/Vol] 22 mmol/L [facility] Work Phone: [phone] [Catalytic activity/Vol] 38 U/L 15 - 46 U/L [facility] Work Phone: [phone] Bilirubin [Mass/Vol] 0.3 mg/dL 0.2 - 1 .3 mg/dL [facility] Work Phone: [phone] Calcium [Mass/Vol] 8.1 mg/dL Low 8.4 - 10. 4 mg/dL [facility] Work Phone: 1 Chloride [Moles/Vol] 104 mmol/L 98 - 10 7 mmol/L [facility] Work Phone: 1 CO2 [Moles/Vol] 10 mmol/L Low 22 - 30 mmol/L [facility] Work Phone: [phone] Creatinine [Mass/Vol] 17.95 mg/dL High 0.52 - 1.25 mg/dL [employer] Work Phone: [phone] IF NonAfrican Citizen Of [place] 2.8 mL/min >60 [facility] Work Phone: [phone] Comment on above: Source- MDRD equatio n with creatinine calibration to IDMS(NKDEP) eGFR not recommended for drug dose adjustment GFR/1.73 sq M.predicted among blacks MDRD (S/P/Bld) [Vol rate/Area] 3.4 mL/min/{1.73_m2} >60 [facility] Work Phone: [phone] Glucose [Mass/Vol] 101 mg/dL High 70 - 100 mg/dL [facility] Work Phone: [phone] Interpretation and review of laboratory results Abnormal [facility] Work Phone: [phone] Potassium [Moles/Vol] 7.3 mmol/L Critically high 3.5 - 5.1 mmol/L [facility] Work Phone: [phone] Protein [Mass/Vol] 7.9 g/dL 6.3 - 8.2 g/dL [facility] Work Phone: [phone] Sodium [Moles/Vol] 136 mmol/L 135 - 145 mmol/L [facility] Work Phone: [phone] Urea nitrogen [Mass/Vol] 179 mg/dL High 7 - 20 mg/d L [facility] Work Phone: [phone] Test Performed by [employer], [address] [place] [address] [employer] Work Phone: [phone] EKG 12 Lead - Chest PainOrde red By: Callie Nieves on 10-19-2019 [facility] Test Date: 2019-10-19 Pat Name: Glenn Snyder Department: 2AED Room: 19 Gender: M Technical Analyst: SHAWN : 1965 Requested By: CALLIE NIEVES Order Number: [id number] Reading MD: Alessia Tapia Measurements Intervals [place] Rate: 97 P: 78 SC: 128 QRS: 49 QRSD: 106 T: 83 QT: 376 QTc: 478 Interpretive Statements SINUS RHYTHM LEFT ATRIAL ABNORMALITY INCOMPLETE RIGHT BUNDLE BRANCH BLOCK LEFT VENTRICULAR HYPERTROPHY BORDERLINE PROLONGED QT INTERVAL No previous ECG available for comparison Electronically Signed On 10-19-2019 8:49:06 EST by Alessia Tapia [employer] Work Phone: Mike, [facility] Incoming Cardiology Results From [facility] - 10/19/2019 8:50 AM EST [facility] Test Date: 2019-10-19 Pat Name: Glenn Snyder Department: 2[facility] Room: 19 Gender: M Technical Analyst: SHAWN : 1965 Requested By: CALLIE NIEVES Order Number: [id number] Reading MD: Alessia Tapia Measurements Intervals [place] Rate: 97 P: 78 SC: 128 QRS: 49 QRSD: 106 T: 83 QT: 376 QTc: 478 Interpretive Statements SINUS RHYTHM LEFT ATRIAL ABNORMALITY INCOMPLETE RIGHT BUNDLE BRANCH BLOCK LEFT VENTRICULAR HYPERTROPHY BORDERLINE PROLONGED QT INTERVAL No previous ECG available for comparison Electronically Signed On 10-19-2019 8:49:06 EST by Alessia Tapia [employer] Work Phone: HEPATITIS B SURFACE ANTIGENO rdered By: Jeana Pedraza on 10-19-2019 Hepatitis B Surface Ag Not detected Not-D etected NA [employer] Work Phone: [phone] HIV ScreenOrdered By: Adan Encarnacion on 10-19-2019 HIV 1+2 [id number] AG, EIA Non-Reactive Nonreactive NA [employer] Work Phone: Comment on above: Results obtained usi ng the FDA cleared 4th generation HIV test. This test detects antibodies to HIV1, HIV2, HIV Group O, and the presence of the HIV-1 p24 antigen. A Non-Reactive re- sult indicates the patient is negative for both HIV antibody and HIV p24 antigen. All reactive results will undergo reflex confirmation testing at an additional charge. Hemogram (CBC) w/Auto DiffOr dered By: Callie Nieves on 10-19-2019 Absolute Baso # 0.1 10*3/uL 0 - 0.2 10*3/uL [facility] Work Phone: Absolute Neut # 11.3 10*3/uL High 1.8 - 7 10*3/uL [facility] Work Phone: Basophils/100 WBC (Bld) 0.6 % 0 - 2 % S [facility] Work Phone: Eosinophils (Bld) [#/Vol] 0.2 10*3/uL 0 - 0.5 10*3/uL [facility] Work Phone: Eosinophils/100 WBC (Bld) 1.2 % 1 - 6 % [facility] Work Phone: Erythrocyte distribution width (RBC) [Ratio] 13.4 % 11.5 - 14.5 % [facility] Work Phone: Granulocytes/100 WBC (Bld) 80.5 % High 40 - 80 % [facility] Work Phone: Hematocrit (Bld) [Volume fraction] 23.2 % Low 40 - 52 % [facility] Work Phone: Hemoglobin (Bld) [Mass/Vol] 7.8 g/dL Low 13 - 18 g/dL [facility] Work Phone: Interpretation and review of laboratory results Abnormal [facility] Work Phone: Lymphocytes (Bld) [#/Vol] 1.4 10*3/uL 1 - 4.3 10*3/uL [facility] Work Phone: Lymphocytes/100 WBC (Bld) 9.8 % Low 20 - 40 % [facility] Work Phone: MCH (RBC) [Entitic mass] 29.4 pg 26 - 34 pg [employer] Work Phone: MCHC 33.6 % 32 - 36 % [employer] Work Phone: 1 MCV (RBC) [Entitic vol] 87.4 fL 80 - 98 fL S [employer] Work Phone: Monocytes (Bld) [#/Vol] 1.1 10*3/uL High 0 - 0.8 10*3/uL [facility] Work Phone: 1 Monocytes/100 WBC (Bld) 7.9 % 2 - 10 % S [employer] Work Phone: 1 Platelet mean volume (Bld) [Entitic vol] 7.6 fL 7.4 - 10.4 fL [facility] Work Phone: 1 Platelets (Bld) [#/Vol] 293 10*3/uL 140 - 440 10*3/uL [employer] Work Phone: 1 RBC (Bld) [#/Vol] 2.66 10*6/uL Low 4.4 - 5.9 10*6/uL [employer] Work Phone: 1 WBC (Bld) [#/Vol] 14.1 10*3/uL High 3.6 - 10.7 10*3/uL [facility] Work Phone: 1 Test Performed by [facility], [address] [place] [address] [employer] Work Phone: Hepatitis C AntibodyOrdered By: Jeana Pedraza on 10-19-2019 Hepatitis C Ab Not detected Not-Detected NA [employer] Work Phone: Comment on above: Patients with DETECT ED Hepatitis C Ab results should have a new specimen submitted for supplemental testing with a Hepatitis C Quantitative RNA assay (viral load), if clinically indicated. MagnesiumOrdered By: Callie shaw on 10-19-2019 Magnesium [Mass/Vol] 2.1 mg/dL 1.6 - 2 .3 mg/dL [employer] Work Phone: Test Performed by [facility], [address] [place], [place] [address] [employer] Work Phone: No Panel InformationOrdered By: Brett Encarnacion on 10-19-2019 Test Performed by [facility], [address] [place] [address] [facility] Work Phone: 1 No Panel InformationOrdered By: Jeana Pedraza on 10-19-2019 Test Performed by [facility], [address] [place], [place] [address] [employer] Work Phone: 1 PROCALCITONINOrdered By: Eldon Encarnacion on 10-19-2019 Interpretation See Below [facility] Work Phone: Comment on above: PCT <0.50 = Low risk of severe sepsis and/or septic shock. PCT >2.00 = High risk of severe sepsis and/or septic shock. Interpretation and review of laboratory results Abnormal [employer] Work Phone: Procalcitonin 0.74 ng/mL Abnormal <0.10 [facility] Work Phone: 1 PhosphorusOrdered By: Callie Nieves on 10-19-2019 Interpretation and review of laboratory results Abnormal [facility] Work Phone: Phosphate [Mass/Vol] 14.8 mg/dL High 2.5 - 4 .5 mg/dL [facility] Work Phone: 1 Test Performed by [facility], [address] [place], [place] [address] [employer] Work Phone: TYPE AND SCREENOrdered By: Cecil Nieves on 10-19-2019 ABO Grouping O [facility] Work Phone: Rh Type Negative [facility] Work Phone: Comment on above: Test Performed by [facility] [employer], [address] [place], [place] [address] Test Performed by [facility], [address] [place], [place] [address] [facility] Work Phone: TroponinOrdered By: Callie garcia on 10-19-2019 Interpretation and review of laboratory results Abnormal [employer] Work Phone: 1 Troponin I.cardiac [Mass/Vol] 0.075 ng/mL High 0 - 0.034 ng/mL [facility] Work Phone: Comment on above: . Test Performed by [facility], [address], [place], [place] [address] [facility] Work Phone: 1 UrinalysisOrdered By: Callie Nieves on 10-19-2019 AMORPHOUS CRYSTAL Few Negative /[HPF] [facility] Work Phone: 1 Appearance (U) Clear Clear NA [facility] Work Phone: 1 Bacteria, UA Few Negative /[HPF] [facility] Work Phone: Bilirubin Urine Negative Negative mg/dL [facility] Work Phone: 1 Color (U) Colorless Lt. Yellow NA [facility] Work Phone: 1 Glucose, Ur 200 mg/dL Normal (<70) [facility] Work Phone: Ketones Ql (U) Negative Negative mg/dL [facility] Work Phone: 1 LEUKOCYTES, UA Negative Negative Juliana/uL [facility] Work Phone: 1 Mucous Threads Few Negative /[LPF] [facility] Work Phone: 1 Nitrite, Urine Negative Negative NA [facility] Work Phone: 1 Occult Blood,Urine 0.2 mg/dL Negative [facility] Work Phone: 1 pH (U) 6.0 [pH] [facility] Work Phone: Protein (U) [Mass/Vol] 200 mg/dL Negative [facility] Work Phone: RBC, UA 6-10 0 - 2 /[HPF] [facility] Work Phone: 1 Specific Perry, Urine 1.009 S [facility] Work Phone: Squam Epithel, UA 0-2 3 - 5 /[HPF] [facility] Work Phone: Urobilinogen, Urine Normal Normal ( 0-1) mg/dL [facility] Work Phone: WBC, UA 6-10 0 - 5 /[HPF] [facility] Work Phone: Test Performed by [facility], [address], [place], [place] [address] [facility] Work Phone: XR CHEST PORTABLEOrdered By: Brett Encarnacion on 10-19-2019 Patient Name: GLENN SNYDER ---Diagnostic Radiology--- Exam Date/Time 10/19/2019 12:11:06 EST Exam CR Chest Portable Ordering Physician MD ENCARNACION MATTHEW Accession Number [id number] CPT4 Codes 22429 () Reason For Exam line placement/vascath Report Portable chest 10/19/2019: Clinical Information: Line placement. Findings: A single AP portable view of the chest was obtained at 1203 hours. No prior studies for comparison. A right jugular line is present with the tip in the region of the superior vena cava. No pneumothorax is identified. The trachea is midline. The heart is not enlarged. No focal areas of consolidation or volume loss are seen. There are no pleural effusions. The pulmonary vasculature may be at most mildly congested. The visualized bony structures are intact. Report Dictated on --- Final --- Dictating Physician: MD WILLIAMSON RISA Signed Date and Time: 10/19/2019 12:55 pm Signed by: MD WILLIAMSON RISA Transcribed Date and Time: 10/19/2019 12:56 [facility] Work Phone: Mike, [facility] Incoming Rad[facility] Results From [facility] - 10/19/2019 12:57 PM EST Patient Name: GLENN SNYDER ---Diagnostic Radiology--- Exam Date/Time 10/19/2019 12:11:06 EST Exam CR Chest Portable Ordering Physician MD ENCARNACION MATTHEW Accession Number [id number] CPT4 Codes 13478 () Reason For Exam line placement/vascath Report Portable chest 10/19/2019: Clinical Information: Line placement. Findings: A single AP portable view of the chest was obtained at 1203 hours. No prior studies for comparison. A right jugular line is present with the tip in the region of the superior vena cava. No pneumothorax is identified. The trachea is midline. The heart is not enlarged. No focal areas of consolidation or volume loss are seen. There are no pleural effusions. The pulmonary vasculature may be at most mildly congested. The visualized bony structures are intact. Report Dictated on --- Final --- Dictating Physician: MD WILLIAMSON RISA Signed Date and Time: 10/19/2019 12:55 pm Signed by: MD WILLIAMSON RISA Transcribed Date and Time: 10/19/2019 12:56 [employer] Work Phone: Vital Signs Date Time Vital Sign Value Performing Clinician Angelia sweet 03-05-2025 14:03-0400 Body temperature 97 [degF] Mejgon Cuca DO Work Phone: [employer] 03-05-2025 14:03-0400 Diastolic blood pressure 83 mm[Hg] Mejgon Cuca DO Work Phone: [employer] 03-05-2025 14:03-0400 Heart rate 78 /min Mejgon Cuca DO Work Phone: [employer] 03-05-2025 14:03-0400 Respiratory rate 16 /min Mejgon Cuca DO Work Phone: [employer] 03-05-2025 14:03-0400 SaO2% (BldA) [Mass fraction] 100 % Mejgon Cuca DO Work Phone: [employer] 03-05-2025 14:03-0400 Systolic blood pressure 137 mm[Hg] Mejgon Cuca DO Work Phone: [employer] 02-23-2025 14:13-0400 Body height 177.8 cm Mejgon Cuca DO Work Phone: [employer] 02-23-2025 14:13-0400 Body mass index (BMI) [Ratio] 19.23 kg/m2 Mejgon Cuca DO Work Phone: [employer] 02-23-2025 14:13-0400 Body weight 60.78 kg Mejgon Cuca DO Work Phone: [employer] 02-14-2025 10:30-0400 Body height 177.8 cm Mikala Day PA-C Work Phone: [employer] 02-14-2025 10:30-0400 Body mass index (BMI) [Ratio] 18.65 kg/m2 Mikala JO-C Work Phone: [facility] [employer] 02-14-2025 10:30-0400 Body temperature 96.8 [degF] Mikala Day PA-C Work Phone: [facility] [employer] 02-14-2025 10:30-0400 Body weight 58.97 kg Mikala JO-C Work Phone: [facility] [employer] 02-14-2025 10:30-0400 Diastolic blood pressure 72 mm[Hg] Mikala JO-C Work Phone: [facility] [employer] 02-14-2025 10:30-0400 Heart rate 89 /min Mikala JO-C Work Phone: [facility] [employer] 02-14-2025 10:30-0400 SaO2% (BldA) [Mass fraction] 98 % Mikala JO-Walter Work Phone: [facility] [employer] 02-14-2025 10:30-0400 Systolic blood pressure 138 mm[Hg] Mikala JO-C Work Phone: [facility] [employer] 02-01-2025 15:02-0400 Body temperature 96.69 [degF] Lazaro Rojo MD Work Phone: [facility] [employer] 02-01-2025 15:02-0400 Diastolic blood pressure 60 mm[Hg] Lazaro Rojo MD Work Phone: [facility] [employer] 02-01-2025 15:02-0400 Heart rate 81 /min Lazaro Rojo MD Work Phone: [employer] 02-01-2025 15:02-0400 Respiratory rate 16 /min Lazaro Rojo MD Work Phone: [employer] 02-01-2025 15:02-0400 SaO2% (BldA) [Mass fraction] 98 % Lazaro Rojo MD Work Phone: [facility] [employer] 02-01-2025 15:02-0400 Systolic blood pressure 118 mm[Hg] Lazaro Rojo MD Work Phone: [facility] [employer] 02-01-2025 05:36-0400 Body mass index (BMI) [Ratio] 14.58 kg/m2 Lazaro Rojo MD Work Phone: [facility] [employer] 02-01-2025 05:36-0400 Body weight 46.1 kg Lazaro Rojo MD Work Phone: [facility] [employer] 01-30-2025 10:02-0400 Body height 177.8 cm Lazaro Rojo MD Work Phone: [facility] [employer] 08-28-2024 15:33-0500 Body height 177.8 cm Jr Shah MD Work Phone: [facility] [employer] 08-28-2024 15:33-0500 Body mass index (BMI) [Ratio] 29.56 kg/m2 Jr Shah MD Work Phone: [facility] [employer] 08-28-2024 15:33-0500 Body weight 93.44 kg Jr Shah MD Work Phone: [facility] [employer] 08-28-2024 15:33-0500 Diastolic blood pressure 80 mm[Hg] Jr Shah MD Work Phone: [facility] [employer] 08-28-2024 15:33-0500 Heart rate 75 /min Jr Shah MD Work Phone: [facility] [employer] 08-28-2024 15:33-0500 Systolic blood pressure 130 mm[Hg] Jr Shah MD Work Phone: [facility] [employer] 11-12-2023 14:16-0500 Diastolic blood pressure 84 mm[Hg] Quiana Contreras APRN - [employer] Work Phone: [facility] [employer] 11-12-2023 14:16-0500 Systolic blood pressure 138 mm[Hg] Quiana Contreras APRN - [employer] Work Phone: [facility] [employer] 11-12-2023 13:41-0500 Body height 177.8 cm Quiana Contreras APRN - [employer] Work Phone: [employer] 11-12-2023 13:41-0500 Body mass index (BMI) [Ratio] 29.84 kg/m2 Quiana Contreras APRN - [employer] Work Phone: [employer] 11-12-2023 13:41-0500 Body weight 94.35 kg Quiana Contreras APRN - [employer] Work Phone: [employer] 11-12-2023 13:41-0500 Heart rate 85 /min Quiana Contreras APRN - [employer] Work Phone: [employer] 08-17-2023 13:12-0500 Diastolic blood pressure 67 mm[Hg] Dioniciochandana Ozzie DO Work Phone: [employer] 08-17-2023 13:12-0500 Heart rate 84 /min Dioniciochandana Ozzie DO Work Phone: [employer] 08-17-2023 13:12-0500 Respiratory rate 18 /min Dioniciochandana Ozzie DO Work Phone: [employer] 08-17-2023 13:12-0500 SaO2% (BldA) [Mass fraction] 98 % Dionicion [place] DO Work Phone: [employer] 08-17-2023 13:12-0500 Systolic blood pressure 94 mm[Hg] Dioniciochandana [place] DO Work Phone: [employer] 08-17-2023 09:13-0500 Body height 177.8 cm Dionicion Ozzie DO Work Phone: [employer] 08-17-2023 09:13-0500 Body mass index (BMI) [Ratio] 28.7 kg/m2 Gurinderlyn Ozzie DO Work Phone: [employer] 08-17-2023 09:13-0500 Body weight 90.72 kg Gurinderserenen [place] DO Work Phone: [employer] 08-17-2023 08:50-0500 Body temperature 99 [degF] Dangelo [place] DO Work Phone: [facility] [employer] 05-01-2023 20:36-0400 Diastolic blood pressure 85 mm[Hg] Jese Frank MD Work Phone: [facility] [employer] 05-01-2023 20:36-0400 Heart rate 74 /min Jese Frank MD Work Phone: [facility] [employer] 05-01-2023 20:36-0400 Respiratory rate 20 /min Jese Frank MD Work Phone: [facility] [employer] 05-01-2023 20:36-0400 SaO2% (BldA) [Mass fraction] 95 % Jese Frank MD Work Phone: [facility] [employer] 05-01-2023 20:36-0400 Systolic blood pressure 135 mm[Hg] Jese Frank MD Work Phone: [facility] [employer] 05-01-2023 20:08-0400 Body height 177.8 cm Jese Frank MD Work Phone: [facility] [employer] 05-01-2023 20:08-0400 Body mass index (BMI) [Ratio] 28.7 kg/m2 Jese Frank MD Work Phone: [facility] [employer] 05-01-2023 20:08-0400 Body temperature 98.2 [degF] Jese Frank MD Work Phone: [facility] [employer] 05-01-2023 20:08-0400 Body weight 90.72 kg Jese Frank MD Work Phone: [facility] [employer] 12-25-2021 15:50-0400 Body height 177.8 cm Rudy Painter MD Work Phone: [facility] 12-25-2021 15:50-0400 Body weight 99.79 kg Rudy Painter MD Work Phone: [facility] 12-25-2021 15:50-0400 Diastolic blood pressure 72 mm[Hg] Rudy Painter MD Work Phone: [facility] 12-25-2021 15:50-0400 Heart rate 70 /min Rudy Painter MD Work Phone: [facility] 12-25-2021 15:50-0400 Systolic blood pressure 130 mm[Hg] Rudy Painter MD Work Phone: [facility] 09-15-2021 11:20-0500 Body temperature 97.59 [degF] Cindy Patel MD Work Phone: [facility] 09-15-2021 11:20-0500 Diastolic blood pressure 83 mm[Hg] Cindy Patel MD Work Phone: [facility] 09-15-2021 11:20-0500 Heart rate 85 /min Cindy Patel MD Work Phone: [facility] 09-15-2021 11:20-0500 Respiratory rate 20 /min Cindy Patel MD Work Phone: [facility] 09-15-2021 11:20-0500 SaO2% (BldA) [Mass fraction] 98 % Cindy Patel MD Work Phone: [facility] 09-15-2021 11:20-0500 Systolic blood pressure 144 mm[Hg] Cindy Patel MD Work Phone: [facility] 09-15-2021 09:19-0500 Body height 177.8 cm Cindy Patel MD Work Phone: [facility] 09-15-2021 09:19-0500 Body mass index (BMI) [Ratio] 30.05 kg/m2 Cindy Patel MD Work Phone: [facility] 09-15-2021 09:19-0500 Body weight 94.98 kg Cindy Patel MD Work Phone: [facility] 10-27-2019 20:02-0500 Body temperature 97.2 [degF] Callie Nieves DO Work Phone: [facility] Work Phone: 10-27-2019 20:02-0500 Diastolic blood pressure 77 mm[Hg] Callie Everpurse DO Work Phone: [employer] Work Phone: 10-27-2019 20:02-0500 Heart rate 107 /min Callie Everpurse DO Work Phone: [employer] Work Phone: 10-27-2019 20:02-0500 Respiratory rate 16 /min Callie Everpurse DO Work Phone: [employer] Work Phone: 10-27-2019 20:02-0500 SaO2% (BldA) [Mass fraction] 96 % Callie Andre Phillipe Work Phone: [employer] Work Phone: 10-27-2019 20:02-0500 Systolic blood pressure 112 mm[Hg] Callie Andre Phillipe Work Phone: [employer] Work Phone: 10-27-2019 14:10-0500 Body mass index (BMI) [Ratio] 27.08 kg/m2 Callie Andre Phillipe Work Phone: [employer] Work Phone: 10-27-2019 14:10-0500 Body weight 85.6 kg Callie Andre Phillipe Work Phone: [employer] Work Phone: 10-19-2019 12:45-0500 Body height 177.8 cm Callie Andre Phillipe Work Phone: [employer] Work Phone: Encounters Encounter Date Encounter Type Care Provider Facility Start: 02-23-2025 End: 02-23-2025 Telephone encounter Elly Jett MD Work Phone: [facility] Start: 02-21-2025 End: 02-25-2025 Telephone encounter Hussain Quintana MD Work Phone: [facility] Infectious Disease - [place] Comment on above: Other Start: 02-20-2025 End: 03-05-2025 Evaluation and management of inpatient Mejgon Z Cuca DO Work Phone: [facility] Trauma Neuro Progressive Care Unit PCU 3W Start: 02-20-2025 ambulatory Kayley Goodena jena OLS Facility:[facility] Start: 02-20-2025 Registered Referred Kayley ortiz MD -[facility] Start: 02-15-2025 ambulatory Kayley Goodena jena OLS Facility:[facility] Start: 02-15-2025 Registered Referred Kayley ortiz MD -[place] Start: 02-14-2025 End: 02-14-2025 Office outpatient visit 25 minutes [facility] DANIELLE Work Phone: [facility] Infectious Disease [facility] [place] Comment on above: Sacral osteomyelitis (CMS/HCC) (HCC) (Primary Dx); ESRD on hemodialysis (CMS/HCC) (HCC); 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, 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); Decubitus ulcer of sacral region, unstageable (HCC); rn long term care (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 Start: 02-14-2025 End: 02-14-2025 ambulatory [facility] Start: 02-13-2025 ambulatory Kayley Goodena jena OLS Facility:[facility] Start: 02-13-2025 Registered Referred Kayley ortiz MD -[place] [facility] Start: 02-12-2025 ambulatory Kayley Mendozakka jena OLS Facility:[facility] Start: 02-12-2025 Registered Referred Kayley ortiz MD -[facility] Start: 02-08-2025 ambulatory Navarroer Rejikka jena OLS Facility:[facility] Start: 02-08-2025 Registered Referred Kayley ortiz MD -[place] Start: 02-07-2025 Registered Referred Jayesh Stubbs - [place] [employer] [facility] Start: 02-07-2025 End: 02-07-2025 ambulatory Jayesh ALBA Facility:[facility] Start: 02-05-2025 End: 02-05-2025 ambulatory Kayley Melendrez MD [facility] Work Phone: Start: 02-05-2025 End: 02-05-2025 Departed Referred Kayley Melendrez MD -[facility] Start: 02-05-2025 End: 02-05-2025 ambulatory Kayley ALBA Facility:[facility] Start: 02-02-2025 End: 02-02-2025 Anticoagulant drug monitoring Adalberto SanchezD [facility] Comment on above: S/P AVR (Primary Dx) Start: 01-29-2025 End: 02-05-2025 Telephone encounter Adina Montenegro MA [facility] Anticoagulatio n Management Service Comment on above: Anticoagulation Start: 01-19-2025 End: 02-01-2025 Evaluation and management of inpatient Lazaro Rojo MD Work Phone: [facility] Cardiac Vascular Progressive Care Unit PCC 1C Start: 01-18-2025 End: 01-18-2025 ambulatory Jefferson Nathan MD Work Phone: [facility] Pulmonary and [facility] Comment on above: Acute respiratory fa ilure with hypoxia (HCC) [J96.01] (Primary Dx); RSV (acute bronchiolitis due to respiratory syncytial virus); 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HCC); Leg DVT (deep venous thromboembolism), acute, left (HCC); Pulmonary embolism, unspecified chronicity, unspecified pulmonary embolism type, unspecified whether acute cor pulmonale present (HCC); S/P AVR Start: 01-17-2025 End: 01-17-2025 ambulatory Jefferson Nathan MD Work Phone: [facility] Pulmonary and Sleep Medicine [facility] Comment on above: RSV (acute bronchiol itis due to respiratory syncytial virus) (Primary Dx); 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HCC); Pneumonia of both lungs due to methicillin susceptible Staphylococcus aureus (MSSA), unspecified part of lung (HCC); Acute respiratory failure with hypoxia (HCC) [J96.01]; Nonrheumatic aortic valve stenosis; Pulmonary embolism, unspecified chronicity, unspecified pulmonary embolism type, unspecified whether acute cor pulmonale present (HCC) Tracheostomy depende nce (HCC) (Primary Dx); ESRD on hemodialysis (CMS/HCC) (HCC); rn long term care (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; Decubitus ulcer of sacral region, unstageable (HCC); Sacral osteomyelitis (CMS/HCC) (HCC) Start: 01-16-2025 End: 01-16-2025 ambulatory Jefferson Nathan MD Work Phone: [facility] Pulmonary and [facility] Comment on above: RSV (acute bronchiol itis due to respiratory syncytial virus) (Primary Dx); 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HCC); Pneumonia of both lungs due to methicillin susceptible Staphylococcus aureus (MSSA), unspecified part of lung (HCC); Acute respiratory failure with hypoxia ([facility]) [J96.01]; Nonrheumatic aortic valve stenosis; Pulmonary embolism, unspecified chronicity, unspecified pulmonary embolism type, unspecified whether acute cor pulmonale present (HCC) Start: 01-15-2025 End: 01-15-2025 ambulatory Jefferson Nathan MD Work Phone: [facility] Pulmonary and Sleep Medicine [facility] Comment on above: RSV (acute bronchiol itis due to respiratory syncytial virus) (Primary Dx); 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HCC); Acute respiratory failure with hypoxia (HCC) [J96.01]; Leg DVT (deep venous thromboembolism), acute, left (HCC); Pulmonary embolism, unspecified chronicity, unspecified pulmonary embolism type, unspecified whether acute cor pulmonale present (HCC); S/P AVR Tracheostomy depende nce ([facility]) (Primary Dx); ESRD on hemodialysis ([facility]) ([facility]); 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, 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); Sacral osteomyelitis ([facility]/HCC) ([facility]); Leukocytosis, unspecified type Start: 01-14-2025 End: 01-14-2025 ambulatory Hany Berrios MD Work Phone: [facility] Pulmonary [facility] Sleep Medicine [facility] Comment on above: Acute respiratory fa ilure with hypoxia (HCC) [J96.01] (Primary Dx); 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[facility]) [Z93.0]; Pulmonary embolism, other, unspecified chronicity, unspecified whether acute cor pulmonale present (HCC) Start: 01-12-2025 End: 01-12-2025 ambulatory Mikala Day PA-C Work Phone: [facility] Infectious Dis Comment on above: Tracheostomy depende nce (HCC) (Primary Dx); Sacral osteomyelitis (CMS/HCC) (HCC); Leukocytosis, unspecified type; Decubitus ulcer of sacral region, unstageable (HCC); rn long term care (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 Acute respiratory fa ilure with hypoxia (HCC) [J96.01] (Primary Dx); 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]; Pulmonary embolism, other, unspecified chronicity, unspecified whether acute cor pulmonale present (HCC) Start: 01-11-2025 End: 01-11-2025 ambulatory Mikala Day PA-C Work Phone: [facility] Infectious Dis Comment on above: Tracheostomy depende nce (HCC) (Primary Dx); ESRD on hemodialysis (CMS/HCC) (HCC); Sacral osteomyelitis (CMS/HCC) (HCC); Decubitus ulcer of sacral region, unstageable (HCC) Acute respiratory fa ilure with hypoxia (HCC) [J96.01] (Primary Dx); 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]; Pulmonary embolism, other, unspecified chronicity, unspecified whether acute cor pulmonale present (HCC) Start: 01-10-2025 End: 01-10-2025 ambulatory Hany Beriros MD Work Phone: [facility] Pulmonary and Sleep [facility] Comment on above: Acute respiratory fa ilure with hypoxia (HCC) [J96.01] (Primary Dx); 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]; Pulmonary embolism, other, unspecified chronicity, unspecified whether acute cor pulmonale present (HCC) Start: 01-09-2025 End: 01-09-2025 ambulatory Mikala Day PA-C Work Phone: [facility]ious [facility] Comment on above: Tracheostomy depende nce (HCC) (Primary Dx); Pneumonia of both lungs due to methicillin susceptible Staphylococcus aureus (MSSA), unspecified part of lung (HCC); ESRD on hemodialysis (CMS/HCC) (HCC); Sacral osteomyelitis (CMS/HCC) (HCC) Acute respiratory fa ilure with hypoxia (HCC) [J96.01] (Primary Dx); Tracheostomy care (HCC) [Z43.0]; Pulmonary embolism, other, unspecified chronicity, unspecified whether acute cor pulmonale present (HCC) Start: 01-08-2025 End: 01-08-2025 ambulatory Mikala Day PA-C Work Phone: [facility] Comment on above: Tracheostomy depende nce (HCC) (Primary Dx); Pneumonia of both lungs due to methicillin susceptible Staphylococcus aureus (MSSA), unspecified part of lung (HCC); ESRD on hemodialysis (CMS/HCC) (HCC); Sacral osteomyelitis (CMS/HCC) (HCC) Acute respiratory fa ilure with hypoxia (HCC) [J96.01] (Primary Dx); Tracheostomy care (HCC) [Z43.0]; Pulmonary embolism, other, unspecified chronicity, unspecified whether acute cor pulmonale present (HCC) Start: 01-05-2025 End: 01-05-2025 ambulatory Sydni Husain [employer] Work Phone: [facility] Infectious Disease - [place] Comment on above: Pneumonia of both marleny ngs due to methicillin susceptible Staphylococcus aureus (MSSA), unspecified part of lung (HCC) (Primary Dx); Acute hypoxic respiratory failure (HCC); 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HCC); ESRD on hemodialysis (CMS/HCC) (HCC); Sacral osteomyelitis (CMS/HCC) (HCC); Decubitus ulcer of sacral region, unstageable (HCC) Start: 01-05-2025 End: 01-05-2025 Patient encounter procedure Chandrika Allen [employer] - [employer] Work Phone: [facility] [place] Comment on above: Acute respiratory fa ilure with hypoxia (HCC) [J96.01] (Primary Dx); 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]; LRTI (lower respiratory tract infection) [J22] Start: 01-04-2025 End: 01-04-2025 Admission to same day surgery center Sydni Husain [employer] - [employer] Work Phone: [facility] Infectious Disease [facility] [place] Comment on above: Tracheostomy depende nce (HCC) (Primary Dx); Pneumonia of both lungs due to methicillin susceptible Staphylococcus aureus (MSSA), unspecified part of lung (HCC); Acute hypoxic respiratory failure (HCC); Peritonitis due to fungus (HCC); ESRD on hemodialysis (CMS/HCC) (HCC); Sacral osteomyelitis (CMS/HCC) (HCC); Leukocytosis, unspecified type; History of abdominal surgery Start: 01-04-2025 End: 01-04-2025 ambulatory Sydni Husani APRN [employer] Work Phone: [facility] Infectious Disease - [place] Start: 01-04-2025 End: 01-04-2025 [facility] hospital care/day 25 minutes Angelesmatt Blackburn DO Work Phone: [facility] [place] Comment on above: 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] (Primary Dx); Acute respiratory failure with hypoxia ([facility]) [J96.01] Start: 01-03-2025 End: 01-03-2025 ambulatory Josephine Cash [employer] Work Phone: [facility] Disease - [place] Comment on above: Sacral osteomyelitis (CMS/HCC) (HCC) (Primary Dx); Decubitus ulcer of sacral region, unstageable (HCC); Pneumonia of both lungs due to methicillin susceptible Staphylococcus aureus (MSSA), unspecified part of lung (HCC); Leukocytosis, unspecified type; ESRD on hemodialysis (CMS/HCC) ([facility]); S/P AVR Start: 01-03-2025 End: 01-03-2025 [facility] hospital care/day 25 minutes Angeles Blackburn DO Work Phone: [facility] [place] Comment on above: 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] (Primary Dx); Acute respiratory failure with hypoxia ([facility]) [J96.01] Start: 01-02-2025 End: 01-02-2025 ambulatory Josephine Cash [employer] Work Phone: [facility] Infectious Disease - [place] Comment on above: Leukocytosis, unspec ified type (Primary Dx); Pneumonia of both lungs due to methicillin susceptible Staphylococcus aureus (MSSA), unspecified part of lung (HCC); Acute hypoxic respiratory failure (HCC); Decubitus ulcer of sacral region, unstageable (HCC); ESRD on hemodialysis (CMS/HCC) (HCC); S/P AVR Start: 01-02-2025 End: 01-02-2025 [facility] hospital care/day 25 minutes Angeles Bere DO Work Phone: [facility] Lung Nodule [facility] [place] Comment on above: 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] (Primary Dx); Acute respiratory failure with hypoxia (HCC) [J96.01] Start: 01-01-2025 End: 01-01-2025 ambulatory Ochoa Guido MD Work Phone: [facility] Cardiology [facility] Comment on above: Persistent atrial fi brillation (HCC) (Primary Dx) Leukocytosis, unspec ified type (Primary Dx); Pneumonia of both lungs due to methicillin susceptible Staphylococcus aureus (MSSA), unspecified part of lung (HCC); Acute hypoxic respiratory failure (HCC); 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HCC); Decubitus ulcer of sacral region, unstageable (HCC); ESRD on hemodialysis (CMS/HCC) (HCC); S/P AVR Start: 01-01-2025 End: 01-01-2025 [facility] hospital care/day 25 minutes Angeles Bere DO Work Phone: [facility] Lung Nodule [facility] [place] Comment on above: 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] (Primary Dx); Acute respiratory failure with hypoxia (HCC) [J96.01] Start: 12-30-2024 End: 12-30-2024 ambulatory Josephine Cash APRN - [employer] Work Phone: [facility] Infectious Dis Comment on above: Leukocytosis, unspec ified type (Primary Dx); Acute hypoxic respiratory failure (HCC); 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HCC); S/P AVR; ESRD on hemodialysis (CMS/HCC) (HCC); Decubitus ulcer of sacral region, unstageable (HCC) Start: 12-28-2024 End: 12-28-2024 ambulatory Mercedes Hinton [employer] CE[employer] ENGINEER - [employer] Work Phone: [facility] Start: 12-28-2024 End: 12-28-2024 Patient encounter procedure Mercedes Hinton [employer] ENG[employer]ER - [employer] Work Phone: [facility] Comment on above: Acute respiratory fa ilure with hypoxia (HCC) [J96.01] (Primary Dx); 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]; Tracheostomy care (HCC) [Z43.0]; History of pulmonary embolus (PE) [Z86.711] Start: 12-27-2024 End: 12-27-2024 ambulatory Mercedes Hinton [employer] CE[employer] ENGINEER - [employer] Work Phone: [facility] Start: 12-27-2024 End: 12-27-2024 Patient encounter procedure Mercedes Hinton [employer] CE[employer] ENGINEER - [employer] ENG[employer]ER Work Phone: [facility] Comment on above: Acute respiratory fa ilure with hypoxia (HCC) [J96.01] (Primary Dx); 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]; Tracheostomy care (HCC) [Z43.0]; History of pulmonary embolus (PE) [Z86.711] Start: 12-26-2024 End: 12-26-2024 ambulatory Mercedes Hinton F[employer]EL CELL ENGINEER - [employer]ER Work Phone: [facility] Start: 12-26-2024 End: 12-26-2024 Patient encounter procedure Mercedes Hinton [employer] ENGINEER - [employer] ENGINEER Work Phone: [facility] Comment on above: Acute respiratory fa ilure with hypoxia (HCC) [J96.01] (Primary Dx); 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]; Tracheostomy care (HCC) [Z43.0]; History of pulmonary embolus (PE) [Z86.711] Start: 12-22-2024 End: 12-22-2024 ambulatory Chandrika Allen F[employer]EL CELL ENGINEER - [employer] ENG[employer]ER Work Phone: [facility] Lung Nodule [facility] Start: 12-22-2024 End: 12-22-2024 Patient encounter procedure Chandrika Allen [employer] CE[employer] ENGINEER - [employer] ENG[employer] Work Phone: [facility] Comment on above: 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] (Primary Dx); Acute respiratory failure with hypoxia (HCC) [J96.01]; LRTI (lower respiratory tract infection) [J22] Start: 12-21-2024 End: 12-21-2024 ambulatory Chandrika Allen F[employer]EL CELL ENGINEER - [employer] Work Phone: [facility] Start: 12-21-2024 End: 12-21-2024 Patient encounter procedure Chandrika Allen [employer] CE[employer] ENGINEER - [employer] ENG[employer] Work Phone: [facility] Comment on above: 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] (Primary Dx); Acute respiratory failure with hypoxia (HCC) [J96.01]; LRTI (lower respiratory tract infection) [J22] Start: 12-20-2024 End: 12-20-2024 ambulatory Chandrika Allen FUEL CELL ENGINEER - [employer] SALES ENGINEER Work Phone: [facility] Start: 12-20-2024 End: 12-20-2024 Patient encounter procedure Chandrika Allen FUEL CELL ENGINEER - [employer] SALES ENGINEER Work Phone: [facility] Comment on above: 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] (Primary Dx); Acute respiratory failure with hypoxia (HCC) [J96.01]; LRTI (lower respiratory tract infection) [J22] Start: 12-19-2024 End: 12-19-2024 ambulatory Chandrika Allen FUEL CELL ENGINEER - [employer] SALES ENGINEER Work Phone: [facility] Lung Nodule [facility] Start: 12-19-2024 End: 12-19-2024 Patient encounter procedure Chandrika Allen FUEL CELL ENGINEER - [employer] SALES ENGINEER Work Phone: [facility] Comment on above: 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] (Primary Dx); Acute respiratory failure with hypoxia (HCC) [J96.01]; LRTI (lower respiratory tract infection) [J22] Start: 12-18-2024 End: 12-18-2024 Patient encounter procedure Chandrika HuongRomulo Allen FUEL CELL ENGINEER - [employer] SALES ENGINEER Work Phone: [facility] Comment on above: Acute respiratory fa ilure with hypoxia (HCC) [J96.01] (Primary Dx); 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]; LRTI (lower respiratory tract infection) [J22] Start: 12-18-2024 End: 12-18-2024 ambulatory Chandrika Allen FUEL CELL ENGINEER - [employer] SALES ENGINEER Work Phone: [facility] Start: 12-15-2024 End: 12-15-2024 ambulatory Jefferson Nathan MD Work Phone: [facility] Lung Nodule [facility] Start: 12-15-2024 End: 12-15-2024 Patient encounter procedure Jefferson Nathan MD Work Phone: [facility] Lung Nodule [facility] Comment on above: Acute respiratory fa ilure with hypoxia (HCC) (Primary Dx); 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HCC); RSV (acute bronchiolitis due to respiratory syncytial virus); Leg DVT (deep venous thromboembolism), acute, left ([facility]); Nonrheumatic aortic valve stenosis Start: 12-14-2024 End: 12-14-2024 ambulatory Jefferson Nathan MD Work Phone: [facility] Pulmonary and [facility] Comment on above: Acute respiratory fa ilure with hypoxia (HCC) (Primary Dx); 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HCC); RSV (acute bronchiolitis due to respiratory syncytial virus); ESRD on hemodialysis (CMS/HCC) (HCC); Pulmonary embolism, other, unspecified chronicity, unspecified whether acute cor pulmonale present (HCC); Nonrheumatic aortic valve stenosis Start: 12-13-2024 End: 12-13-2024 ambulatory Jefferson Nathan MD Work Phone: [facility] Comment on above: Acute respiratory fa ilure with hypoxia (HCC) (Primary Dx); 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HCC); RSV (acute bronchiolitis due to respiratory syncytial virus); Paroxysmal A-fib (CMS/HCC) (HCC); Nonrheumatic aortic valve stenosis Start: 12-12-2024 End: 12-12-2024 ambulatory Jefferson Nathan MD Work Phone: [facility] Pulmonary and Sleep Medicine [place] Comment on above: RSV (acute bronchiol itis due to respiratory syncytial virus) (Primary Dx); 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HCC); Acute respiratory failure with hypoxia (HCC); Paroxysmal A-fib (CMS/HCC) (HCC); Peritonitis due to fungus (HCC) Start: 12-11-2024 End: 12-11-2024 ambulatory Jefferson Nathan MD Work Phone: [facility] Comment on above: RSV (acute bronchiol itis due to respiratory syncytial virus) (Primary Dx); 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HCC); Acute respiratory failure with hypoxia (HCC); Nonrheumatic aortic valve stenosis; Atrial flutter, unspecified type (HCC); Pulmonary embolism, other, unspecified chronicity, unspecified whether acute cor pulmonale present (HCC) Peritonitis due to f ungus (HCC) (Primary Dx); Acute respiratory failure with hypoxia (HCC); Nonrheumatic aortic valve stenosis; Acute encephalopathy; ESRD on hemodialysis (CMS/HCC) (HCC); Alcohol use disorder in remission Start: 12-07-2024 End: 12-07-2024 Admission to same day surgery center Sydni Forrester CNP Work Phone: [facility] Infectious Disease [place] [facility] Comment on above: Acute respiratory fa ilure with hypoxia (HCC) (Primary Dx); 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HCC); S/P AVR; Peritonitis due to fungus (HCC); ESRD on hemodialysis (CMS/HCC) (HCC); 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, 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); Anemia, unspecified type; History of abdominal surgery Start: 12-07-2024 End: 12-07-2024 ambulatory Sydni Husain Markit Work Phone: [facility] [place] Start: 12-06-2024 End: 12-06-2024 Admission to same day surgery center Sydni Husain Markit Work Phone: [facility] [employer] [facility] [place] Comment on above: Acute respiratory fa ilure with hypoxia (HCC) (Primary Dx); 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HCC); S/P AVR; Peritonitis due to fungus (HCC); ESRD on hemodialysis (CMS/HCC) (HCC); 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, 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); History of abdominal surgery Start: 12-06-2024 End: 12-06-2024 ambulatory Sydni Husain Markit Work Phone: [facility] [employer] [facility] [place] Start: 12-04-2024 End: 12-04-2024 Admission to same day surgery center Sydni Husain Markit Work Phone: [facility] [employer] [facility] [place] Comment on above: Acute respiratory fa ilure with hypoxia (HCC) (Primary Dx); 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HCC); S/P AVR; Peritonitis due to fungus (HCC); ESRD on hemodialysis (CMS/HCC) (HCC); 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, 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); History of abdominal surgery Start: 12-04-2024 End: 12-04-2024 ambulatory Sydni Husain Markit Work Phone: [facility] [employer] [facility] [place] Comment on above: Atypical atrial flut ter (HCC) (Primary Dx) Start: 12-01-2024 End: 12-01-2024 Admission to same day surgery center Sydni Husain Markit Work Phone: [facility] [employer] [facility] [place] Comment on above: Acute respiratory fa ilure with hypoxia (HCC) (Primary Dx); 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HCC); S/P AVR; Peritonitis due to fungus (HCC); ESRD on hemodialysis (CMS/HCC) (HCC); 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, 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); Leg DVT (deep venous thromboembolism), acute, left (HCC); History of abdominal surgery Start: 12-01-2024 End: 12-01-2024 ambulatory Jefferson Nathan MD Work Phone: [facility] Lung Nodule [facility] Comment on above: Atypical atrial flut ter (HCC) (Primary Dx) Start: 12-01-2024 End: 12-01-2024 Patient encounter procedure Jefferson Nathan MD Work Phone: [facility] Lung Nod[facility] Comment on above: Acute respiratory fa ilure with hypoxia (HCC) (Primary Dx); 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HCC); Ventilator dependent (HCC); Pulmonary embolism, other, unspecified chronicity, unspecified whether acute cor pulmonale present (HCC); S/P AVR Start: 11-30-2024 End: 11-30-2024 Admission to same day surgery center Sydni Husain APRN - [employer] SALES ENGINEER Work Phone: [facility] Infectious Disease - [place] Comment on above: Acute respiratory fa ilure with hypoxia (HCC) (Primary Dx); 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HCC); S/P AVR; Peritonitis due to fungus (HCC); ESRD on hemodialysis (CMS/HCC) (HCC); 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, 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); Leg DVT (deep venous thromboembolism), acute, left (HCC); History of abdominal surgery Start: 11-30-2024 End: 11-30-2024 ambulatory Sydni Husain FUEL CELL ENGINEER - [employer] SALES ENGINEER Work Phone: [facility] Infectious Disease - [place] Comment on above: Acute respiratory fa ilure with hypoxia (HCC) (Primary Dx); 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HCC); Ventilator dependent (HCC); Pulmonary embolism, other, unspecified chronicity, unspecified whether acute cor pulmonale present (HCC); S/P AVR; Tracheostomy dependent (HCC); Chronic bronchitis, unspecified chronic bronchitis type (HCC); ESRD on hemodialysis (CMS/HCC) (HCC) Start: 11-29-2024 End: 11-30-2024 Admission to same day surgery center Sydin Husain FUEL CELL ENGINEER - [employer] SALES ENGINEER Work Phone: [facility] Infectious Disease - [place] Comment on above: Peritonitis due to f ungus (HCC) (Primary Dx); History of abdominal surgery; S/P AVR; 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, 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); Leg DVT (deep venous thromboembolism), acute, left (HCC); Anemia, unspecified type Start: 11-29-2024 End: 11-30-2024 ambulatory Jefferson Nathan MD Work Phone: [facility] Pulmonary and Sleep Medicine [facility] Comment on above: Acute respiratory fa ilure with hypoxia (HCC) (Primary Dx); Atrial flutter, unspecified type (HCC); Pulmonary embolism, other, unspecified chronicity, unspecified whether acute cor pulmonale present (HCC); Ventilator dependent (HCC); Tracheostomy dependent (HCC); S/P AVR; Chronic bronchitis, unspecified chronic bronchitis type (HCC); ESRD on hemodialysis (CMS/HCC) (HCC) Start: 11-28-2024 End: 11-29-2024 Telephone encounter Jefferson Nathan MD Work Phone: [facility] Pulmonary and [facility] Comment on above: Advice Only Start: 10-22-2024 End: 10-22-2024 ambulatory [facility] Start: 10-21-2024 End: 10-25-2024 ambulatory [facility] Start: 10-16-2024 End: 10-16-2024 Telephone encounter Shira Dumont FUEL CELL ENGINEER - [employer] SALES ENGINEER Work Phone: [facility] Gastroenterology - [place] Comment on above: Care Coordination Start: 10-13-2024 End: 10-13-2024 Telephone encounter Lan Carpenter PA-C Work Phone: [facility] Start: 10-12-2024 End: 10-12-2024 Evaluation and management of inpatient Vincent Wilson MD Work Phone: [facility] Start: 10-03-2024 End: 10-03-2024 Emergency department patient visit JESE FRANK [facility] Start: 10-03-2024 End: 10-03-2024 Subsequent hospital visit by physician [facility] Exam Room [address] [facility] [address] Comment on above: Arrived Start: 10-03-2024 End: 11-28-2024 Evaluation and management of inpatient LEILANI TRONCOSO [facility] Start: 08-28-2024 End: 08-28-2024 ambulatory JR SHAH [facility] Start: 08-28-2024 End: 08-28-2024 Office outpatient visit 25 minutes Jr Shah MD Work Phone: [facility] Cardiology - [place] Comment on above: Paroxysmal A-fib (CM S/HCC) (HCC) (Primary Dx); Nonrheumatic aortic valve stenosis; Tobacco abuse; Alcohol use disorder in remission Start: 05-10-2024 Chart abstracting Alan Barroso RN [facility] Comment on above: Dialysis status upda te Start: 04-12-2024 Telephone encounter [facility]ordin[facility] Work Phone: Trans[facility] Center Start: 02-12-2024 Telephone encounter Jr Shah MD Work Phone: [facility] Central Scheduling Comment on above: unable to contact pa jadon unable to contact pa jadon to schedule Start: 11-12-2023 End: 11-12-2023 Office outpatient visit 25 minutes Quiana Contreras FUEL CELL ENGINEER - [employer] SALES ENGINEER Work Phone: [facility] Cardiology Comment on above: Nonrheumatic aortic valve stenosis (Primary Dx); Paroxysmal A-fib (CMS/HCC) (HCC); Primary hypertension; Calcification of abdominal aorta (HCC); Tobacco abuse; ESRD on hemodialysis (CMS/HCC) (HCC) Start: 10-14-2023 Telephone encounter Sasha weeks FUEL CELL ENGINEER - [employer] SALES ENGINEER Work Phone: [facility] Cardiology Comment on above: Cancelled Appointmen t Start: 09-07-2023 Transcribe Orders Fransisco toro FUEL CELL ENGINEER Work Phone: [facility] Comment on above: Personal history of nicotine dependence (Primary Dx); Nicotine dependence, cigarettes, uncomplicated Start: 08-18-2023 Telephone encounter Quiana forman FUEL CELL ENGINEER - [employer] SALES ENGINEER Work Phone: [facility] Cardiology Start: 08-16-2023 End: 08-17-2023 Evaluation and management of inpatient Dangelo Horne DO Work Phone: [facility] ED Comment on above: New onset a-fib (CMS /HCC) (HCC) (Primary Dx); Atrial fibrillation, persistent (HCC) Start: 05-01-2023 End: 05-01-2023 Emergency department patient visit Jese Frank MD Work Phone: [facility] ED Comment on above: Skin sore (Primary D x); ESRD (end stage renal disease) on dialysis (HCC) Start: 12-30-2021 Telephone encounter Giovani mckee MD Work Phone: [facility] [place] Comment on above: Procedure please advise Start: 12-29-2021 ambulatory Rudy Painter MD Work Phone: Ambulatory Surgery Start: 12-29-2021 Telephone encounter Cecilia galo PA-C Work Phone: [facility] [place] Comment on above: cecilia carlson Start: 12-25-2021 End: 12-25-2021 Patient encounter procedure Rudy Painter MD Work Phone: [facility] [place] Comment on above: Acute blood loss ane ruth (Primary Dx); Rectal bleeding Start: 09-15-2021 End: 09-15-2021 Subsequent hospital visit by physician Cindy Patel MD Work Phone: [facility] Cath & IR Lab Start: 10-17-2020 End: 10-17-2020 Subsequent hospital visit by physician Cindy Patel Work Phone: [facility] Dept Start: 03-13-2020 End: 03-13-2020 Subsequent hospital visit by physician [facility] [place] [facility] Comment on above: Preoperative testing [Z01.818] Start: 10-19-2019 End: 10-27-2019 Evaluation and management of inpatient Callie Nieves DO Work Phone: [facility] Comment on above: Acute kidney injury (HCC) (Primary Dx); Uncontrolled hypertension; Normocytic anemia; Angioedema, initial encounter; Hyperkalemia; Metabolic acidosis; Rectal bleeding Procedures Date Procedure Procedure Detail Performing Clinician Start: 03-05-2025 End: 03-05-2025 Basic metabolic panel calcium total Minor Collier MD Work Phone: Start: 03-05-2025 Basic metabolic pane l calcium total Anthony Sulaiman Hurtado DO Work Phone: Start: 03-04-2025 Prothrombin time Anthony Sulaiman Hurtado DO Work Phone: Start: 03-04-2025 Basic metabolic pane l calcium total Anthony Sulaiman Hurtado DO Work Phone: Start: 03-03-2025 Basic metabolic pane l calcium total Minor Collier MD Work Phone: Start: 03-03-2025 Basic metabolic pane l calcium total Anthony Sulaiman Hurtado DO Work Phone: Start: 03-02-2025 Thromboplastin time partial plasma/whole blood Ramón Romano MD Work Phone: Start: 03-02-2025 Thromboplastin time partial plasma/whole blood Ramón Romano MD Work Phone: Start: 03-02-2025 Thromboplastin time partial plasma/whole blood Ramón Romano MD Work Phone: Start: 03-02-2025 Basic metabolic pane l calcium total Anthony Sulaiman Hurtado DO Work Phone: Start: 03-01-2025 Basic metabolic pane l calcium total Anthony Sulaiman Hurtado DO Work Phone: Start: 02-28-2025 Basic metabolic pane l calcium total Anthony Sulaiman Hurtado DO Work Phone: Start: 02-27-2025 Blood count complete automated Ramón Romano MD Work Phone: Start: 02-26-2025 Assay of troponin quantitative Rudolph Centeno Fred DO Work Phone: Start: 02-26-2025 Assay of troponin quantitative Rudolph Centeno Carolthiagohammad DO Work Phone: Start: 02-25-2025 Prothrombin time Bob Watson MD Work Phone: Start: 02-25-2025 Ecg routine ecg w/le ast 12 lds trcg only w/o i&r Ramón Romano MD Work Phone: Start: 02-25-2025 Blood count complete automated Ramón Romano MD Work Phone: Start: 02-24-2025 Drug screen quantita tive vancomycin Elly Jett MD Work Phone: Start: 02-24-2025 Iaad ia hepatitis b surface antigen Wellington Nicole MD Work Phone: Start: 02-24-2025 Thromboplastin time partial plasma/whole blood Ramón Romano MD Work Phone: Start: 02-24-2025 Prothrombin time Bettye Pierre MD Work Phone: Start: 02-23-2025 Echo tthrc r-t 2d w/wom-mode compl spec&colr d Hussain Quintana MD Work Phone: Start: 02-23-2025 Comprehensive metabo lic panel Bettye Pierre MD Work Phone: Start: 02-22-2025 Bacteria identified in Blood by Culture Hussain Quintana MD Work Phone: Start: 02-22-2025 Drug screen quantita tive vancomycin Elly Jett MD Work Phone: Start: 02-22-2025 Bacteria identified in Blood by Culture Hussain Quintana MD Work Phone: Start: 02-22-2025 Thromboplastin time partial plasma/whole blood Ramón Romano MD Work Phone: Start: 02-22-2025 Iadna s aureus methicillin resist amp probe tq Elly Jett MD Work Phone: Start: 02-22-2025 Iaadiadoo not otherw ise specified Elly Jett MD Work Phone: Start: 02-22-2025 Smr prim src gram/gi emsa stain bct fungi/cell Elly Jett MD Work Phone: Start: 02-22-2025 Respiratory pathogen s DNA and RNA panel - Lower respiratory specimen by EMMANUEL with non-probe detection Elly Jett MD Work Phone: Start: 02-21-2025 End: 02-22-2025 Comprehensive metabolic panel Bettye Pierre MD Work Phone: Start: 02-21-2025 Respiratory pathogen s DNA and RNA panel - Nasopharynx by EMMANUEL with non-probe detection Elly Jett MD Work Phone: Start: 02-21-2025 Antibody screen LEILANI TRONCOSO Comment on above: Performed By: #### L [id number] ####Farm Contractor: DOMENICA JARA ([id number])[facility] ([facility])[address] [place] [address] Start: 02-21-2025 C-reactive protein Karena Jett MD Work Phone: Start: 02-21-2025 Comprehensive metabo lic panel Bettye Pierre MD Work Phone: Start: 02-20-2025 Ct angiography chest w/contrast/noncontrast Mejgon Z Cuca DO Work Phone: Start: 02-20-2025 Basic metabolic pane l calcium total Mejgon Z Cuca DO Work Phone: Start: 02-14-2025 Follow-up visit Follow-up MIKALA RODO Start: 02-01-2025 Blood count hematocrit Chantell Laquidara DO Work Phone: Start: 02-01-2025 Comprehensive metabo lic panel Barb Dawkins MD Work Phone: Start: 01-31-2025 Blood count hematocrit Chantell Laquidara DO Work Phone: Start: 01-31-2025 Comprehensive metabo lic panel Barb Dawkins MD Work Phone: Start: 01-30-2025 Glucose quantitative blood xcpt reagent strip Barb Dawkins MD Work Phone: Start: 01-30-2025 IR CVC TUNNELED CENT RAL LINE PLACEMENT Kamran Liar MD Work Phone: Start: 01-30-2025 End: 01-30-2025 Blood count hematocrit Chantell Laquidara DO Work Phone: Start: 01-30-2025 Glucose quantitative blood xcpt reagent strip Barb Dawkins MD Work Phone: Start: 01-30-2025 Compatibility each u nit electronic Sangeeta Reyes DO Start: 01-30-2025 Basic metabolic pane l calcium total Chantell Laquidara DO Work Phone: Start: 01-29-2025 Glucose quantitative blood xcpt reagent strip Kamran Lira MD Work Phone: Start: 01-29-2025 Glucose quantitative blood xcpt reagent strip Kamran Lira MD Work Phone: Start: 01-29-2025 End: 01-29-2025 Basic metabolic panel calcium total Chantell Laquidara DO Work Phone: Start: 01-28-2025 End: 01-28-2025 Thromboplastin time partial plasma/whole blood Noman Owens MD Work Phone: Start: 01-28-2025 Basic metabolic pane l calcium total Chantell Laquidara DO Work Phone: Start: 01-28-2025 Blood count complete automated Yifan Stewart DO Work Phone: Start: 01-27-2025 Thromboplastin time partial plasma/whole blood Noman Owens MD Work Phone: Start: 01-27-2025 Glucose quantitative blood xcpt reagent strip Darryn Higgins MD Work Phone: Start: 01-27-2025 Thromboplastin time partial plasma/whole blood Noman Owens MD Work Phone: Start: 01-27-2025 Glucose quantitative blood xcpt reagent strip Darryn Higgins MD Work Phone: Start: 01-27-2025 Glucose quantitative blood xcpt reagent strip Darryn Higgins MD Work Phone: Start: 01-27-2025 Thromboplastin time partial plasma/whole blood Noman Owens MD Work Phone: Start: 01-27-2025 Basic metabolic pane l calcium total Chantell Laquidara DO Work Phone: Start: 01-26-2025 Blood count hematocrit Chantell Laquidara DO Work Phone: Start: 01-26-2025 Thromboplastin time partial plasma/whole blood Noman Owens MD Work Phone: Start: 01-26-2025 Hepatitis b surf ant ibody hbsab Wellington Nicole MD Work Phone: Start: 01-26-2025 Iaad ia hepatitis b surface antigen Wellington Nicole MD Work Phone: Start: 01-26-2025 Thromboplastin time partial plasma/whole blood Noman Owens MD Work Phone: Start: 01-26-2025 Compatibility each u nit electronic Sangeeta Reyes DO Start: 01-26-2025 End: 01-26-2025 TRANSFUSE RED BLOOD CELLS Sangeeta olguin DO Start: 01-26-2025 Basic metabolic pane l calcium total Chantell Laquidara DO Work Phone: Start: 01-25-2025 Blood count hematocrit Chantell Laquidara DO Work Phone: Start: 01-25-2025 Thromboplastin time partial plasma/whole blood Noman Owens MD Work Phone: Start: 01-25-2025 Blood count hematocrit Yifan Kiah Stewart DO Work Phone: Start: 01-25-2025 Radiologic exam swal low function contrast study Elly Jett MD Work Phone: Start: 01-25-2025 Blood count hematocrit Chantell Laquidara DO Work Phone: Start: 01-25-2025 Prothrombin time Elly Jett MD Work Phone: Start: 01-25-2025 Compatibility each u nit electronic Sangeeta Reyes DO Start: 01-25-2025 End: 01-25-2025 TRANSFUSE RED BLOOD CELLS Sangeeta olguin DO Start: 01-25-2025 Antibody screen LEILANI TRONCOSO Comment on above: Performed By: #### L [id number] ####Farm Contractor: DOMENICA JARA ([id number])[facility] ([address] Start: 01-25-2025 Basic metabolic pane l calcium total Chantell Laquidara DO Work Phone: Start: 01-25-2025 Blood typing serolog ic abo Sangeeta Reyes DO Start: 01-24-2025 Prothrombin time Linda Owens MD Work Phone: Start: 01-24-2025 End: 01-24-2025 Colsc flexible w/control bleeding any method Chadd Davis MD Work Phone: Start: 01-24-2025 Basic metabolic pane l calcium total Elly Jett MD Work Phone: Start: 01-24-2025 Assay of lactate Elly Jett MD Work Phone: Start: 01-24-2025 Blood count complete automated Elly Jett MD Work Phone: Start: 01-24-2025 Basic metabolic pane l calcium total Chantell Laquidara DO Work Phone: Start: 01-24-2025 Colonoscopy Adalberto Deleon PharmD Start: 01-24-2025 Radiologic exam ches t single view Sangeeta Reyes DO Start: 01-24-2025 Compatibility each u nit electronic Noman Owens MD Work Phone: Start: 01-23-2025 End: 01-23-2025 Thromboplastin time partial plasma/whole blood Noman Owens MD Work Phone: Start: 01-23-2025 Blood count hematocrit Chantell Hill DO Work Phone: Start: 01-23-2025 Glucose quantitative blood xcpt reagent strip Darryn Higgins MD Work Phone: Start: 01-23-2025 Basic metabolic pane l calcium total Chantell Laquidara DO Work Phone: Start: 01-22-2025 Glucose quantitative blood xcpt reagent strip Darryn Higgins MD Work Phone: Start: 01-22-2025 End: 01-22-2025 Blood count complete auto&auto difrntl wbc Darryn Higgins MD Work Phone: Start: 01-22-2025 Plasma 1 donor frz w /in 8 hr Nils Boyle DO Work Phone: Start: 01-22-2025 End: 01-22-2025 TRANSFUSE FRESH FROZEN PLASMA Nils Boyle DO Work Phone: Start: 01-22-2025 Glucose quantitative blood xcpt reagent strip Darryn Higgins MD Work Phone: Start: 01-22-2025 Clotting factor viii multimetric analysis Sangeeta Reyes Start: 01-22-2025 ACINETOBACTER SHIREEN NIKITA PCR Cali Arredondo MD Work Phone: Start: 01-22-2025 ESTRADA AURIS SCREEN Mikaela Arredondo MD Work Phone: Start: 01-22-2025 Glucose quantitative blood xcpt reagent strip Darryn Higgins MD Work Phone: Start: 01-22-2025 Basic metabolic pane l calcium total Chantell Laquidara DO Work Phone: Start: 01-21-2025 End: 01-22-2025 Fibrin dgradj products d-dimer quantitative Bruce Nguyen MD Work Phone: Start: 01-21-2025 Glucose quantitative blood xcpt reagent strip Quiana Jeffery DO Work Phone: Start: 01-21-2025 Prothrombin time Bob Watson MD Work Phone: Start: 01-21-2025 Glucose quantitative blood xcpt reagent strip Quiana Jeffery DO Work Phone: Start: 01-21-2025 End: 01-21-2025 ESOPHAGOGASTRODUODENOSCOP Y, DIAGNOSTIC Eldon Alba MD Work Phone: Start: 01-21-2025 Blood count complete automated Barbara Flores FUEL CELL ENGINEER - [employer] SALES ENGINEER Work Phone: Start: 01-21-2025 Glucose quantitative blood xcpt reagent strip Jesus Alberto Denson MD Work Phone: Start: 01-21-2025 End: 01-21-2025 Glucose quantitative blood xcpt reagent strip Jesus Alberto Denson MD Work Phone: Start: 01-21-2025 End: 01-21-2025 Basic metabolic panel calcium total Steve Lassiter MD Work Phone: Start: 01-20-2025 Blood count hematocrit Jesus Alberto Denson MD Work Phone: Start: 01-20-2025 Ct angio abd&plvis c ntrst mtrl w/wo cntrst img Japheth Eitamaegbe Okpebholo DO Work Phone: Start: 01-20-2025 Blood count hematocrit Jesus Alberto Denson MD Work Phone: Start: 01-20-2025 Blood count hematocrit Jesus Alberto Denson MD Work Phone: Start: 01-20-2025 Blood typing serolog ic abo Jesus Alberto Denson MD Work Phone: Start: 01-20-2025 Basic metabolic pane l calcium total Steve Lassiter MD Work Phone: Start: 01-19-2025 Assay of troponin quantitative Steve Lassiter MD Work Phone: Start: 01-19-2025 Assay of troponin quantitative Steve Lassiter MD Work Phone: Start: 01-19-2025 Prothrombin time Steve Lassiter MD Work Phone: Start: 01-19-2025 Ecg routine ecg w/le ast 12 lds trcg only w/o i&r Steve Lassiter MD Work Phone: Start: 01-19-2025 Radiologic exam ches t single view Bruce Nguyen MD Work Phone: Start: 01-19-2025 Basic metabolic pane l calcium total Lazaro Rojo MD Work Phone: Start: 11-30-2024 H/O: surgery History of abd ominal surgery Sydni Husain FUEL CELL ENGINEER - [employer] SALES ENGINEER Work Phone: Start: 10-12-2024 Insj non-tunneled ce ntral venous cath age 5 yr/> Rudolph German ORDNANCE TECHNICIAN Start: 10-12-2024 SC AN CENTRAL LINE T RIPLE LUMEN Rudolph German ORDNANCE TECHNICIAN Start: 10-12-2024 SC AN ELECTIVE ENDOTRACHEAL AIRWAY Rudolph eGrman ORDNANCE TECHNICIAN Start: 10-12-2024 Us vasc access sits vsl patency ndl entry Rudolph German ORDNANCE TECHNICIAN Start: 10-12-2024 ANESTHESIA ARTERIAL LINE PLACEMENT Rudolph German ORDNANCE TECHNICIAN Start: 10-03-2024 Ct head/brain w/o contrast material Jese Frank MD Work Phone: Start: 10-03-2024 Radiologic exam ches t single view Jese Frank MD Work Phone: Start: 08-28-2024 Ecg routine ecg w/le ast 12 lds w/i&r Jr Shah MD Work Phone: Start: 11-12-2023 Ecg routine ecg w/le ast 12 lds w/i&r Jr Coombs MD Work Phone: Start: 10-08-2023 Vaccine refused by patient Missed vaccination due to patient refusal Sasha Lemons FUEL CELL ENGINEER - [employer] SALES ENGINEER Work Phone: Start: 08-17-2023 Echo tthrc r-t 2d w/wom-mode compl spec&colr d Earlene Irving MD Work Phone: Start: 08-17-2023 Thyrotropin [Units/volume] in Serum or Plasma Lan Martinesurichristopher PA-C Work Phone: Start: 08-17-2023 Basic metabolic pane l calcium total Earlene Irving MD Work Phone: Start: 08-16-2023 End: 08-16-2023 Basic metabolic panel calcium total Sha Granados PA-[employer] Work Phone: Start: 08-16-2023 Radiologic exam ches t single view [employer] Chandana Roberta PA-[employer] Work Phone: Start: 08-16-2023 Ecg routine ecg w/le ast 12 lds i&r only Dangelo Horne DO Work Phone: Start: 10-17-2020 Special treatments a nd procedures Cindy Patel Work Phone: Start: 03-13-2020 Ecg routine ecg w/le ast 12 lds trcg only w/o i&r [facility] Provider Start: 03-13-2020 BASIC METABOLIC PNL Tati farooq (Labelling 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 [employer]el[employer] Enam[employer]) Sharma Work Phone: Start: 03-13-2020 CBC Darya (A prn Jewelry Enameler) Sharma Work Phone: Start: 03-13-2020 MDRD GFR Darya (A prn Jewelry Enameler) Sharma Work Phone: Start: 03-13-2020 PROTHROMBIN TIME/PT Tati farooq (Labelling 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 [employer]el[employer] Enameler) Sharma Work Phone: Start: 10-27-2019 Basic metabolic pane l calcium total Darell Myron DO Work Phone: Start: 10-26-2019 XA SPECIAL ANGIOGRAP HY PROCEDURE Jeana Pedraza MD Work Phone: Start: 10-26-2019 Renal biopsy prq trocar/needle Cindy Patel MD Work Phone: Start: 10-26-2019 Basic metabolic pane l calcium total Darell Sanches DO Work Phone: Start: 10-25-2019 Basic metabolic pane l calcium total Darell Sanches DO Work Phone: Start: 10-24-2019 End: 10-24-2019 Basic metabolic panel calcium total Darell Sanches DO Work Phone: Start: 10-23-2019 End: 10-23-2019 Basic metabolic panel calcium total Darell Sanches DO Work Phone: Start: 10-22-2019 End: 10-22-2019 Basic metabolic panel calcium total Delon Jessica FUEL CELL ENGINEER - [employer] SALES ENGINEER Work Phone: Start: 10-22-2019 GLOMERULAR BASEMENT MEMBRANE (GBM) ANTIBODY IGG Randolph Euceda MD Work Phone: Start: 10-21-2019 Radiologic exam abdo men 1 view Brett Encarnacion MD Work Phone: Start: 10-21-2019 End: 10-21-2019 Dup-scan artl shayan abdl/pel/scrot&/rpr orgn com Brett Encarnacion MD Work Phone: Start: 10-21-2019 Basic metabolic pane l calcium total Deoln Jessica FUEL CELL ENGINEER - [employer] SALES ENGINEER Work Phone: Start: 10-20-2019 Basic metabolic pane l calcium total Brett Encarnacion MD Work Phone: Start: 10-20-2019 TRANSFUSE RED BLOOD CELLS Delon Jessica FUEL CELL ENGINEER - [employer] SALES ENGINEER Work Phone: Start: 10-20-2019 TRANSFUSE RED BLOOD CELLS Delon Jessica FUEL CELL ENGINEER - [employer] SALES ENGINEER Work Phone: Start: 10-20-2019 Blood count hemoglobin Delon Jessica FUEL CELL ENGINEER - [employer] SALES ENGINEER Work Phone: Start: 10-20-2019 Basic metabolic pane l calcium total Delon Jessica FUEL CELL ENGINEER - [employer] SALES ENGINEER Work Phone: Start: 10-20-2019 RBC morphology findi ng Nom (Bld) Delon Hendersonson FUEL CELL ENGINEER - [employer] SALES ENGINEER Work Phone: Start: 10-19-2019 Basic metabolic pane l calcium total Brett Encarnacion MD Work Phone: Start: 10-19-2019 End: 10-19-2019 Iaad ia hepatitis b surface antigen Jeana Pedraza MD Work Phone: Start: 10-19-2019 End: 10-19-2019 Antinuclear antibodies ciaran Jeana Pedraza MD Work Phone: Start: 10-19-2019 Blood smear peripher al interp phys w/writ report Jeana Pedraza MD Work Phone: Start: 10-19-2019 GLOMERULAR BASEMENT MEMBRANE (GBM) ANTIBODY IGG Jeana Pedraza MD Work Phone: Start: 10-19-2019 Level iv surg pathol ogy gross&microscopic exam Jeana Pedraza MD Work Phone: Start: 10-19-2019 Culture bacterial bl ood aerobic w/id isolates Brett Encarnacion MD Work Phone: Start: 10-19-2019 Radiologic exam ches t single view Brett Encarnacion MD Work Phone: Start: 10-19-2019 ADD ON LAB TEST Brett Encarnacion MD Work Phone: Start: 10-19-2019 Urnls dip stick/tabl et rgnt auto w/o microscopy Callie Nieves DO Work Phone: Start: 10-19-2019 Ecg routine ecg w/le ast 12 lds w/i&r Callie Nieves DO Work Phone: Start: 10-19-2019 Antibody screen Callie shaw DO Work Phone: Comment on above: Test Performed by [facility], [address] [place], [place] [address] Start: 10-19-2019 End: 10-19-2019 ADD ON LAB TEST Callie Nieves DO Work Phone: Start: 10-19-2019 Ct abdomen & pelvis w/o contrast material Callie Nieves DO Work Phone: Start: 10-19-2019 BLOOD OCCULT STOOL S CREEN #1 Callie Gomezh DO Work Phone: Start: 10-19-2019 Blood typing serolog ic abo Callie Gomezh DO Work Phone: Start: 10-19-2019 Comprehensive metabo lic panel Callie Gomezh DO Work Phone: Start: 10-19-2019 Comprehensive metabo lic panel Callie Gomezh DO Work Phone: H/O: surgery History of abdom inal surgery Sydni Husain FUEL CELL ENGINEER - [employer] SALES ENGINEER Work Phone: H/O: surgery History of abdom inal surgery Sydni Husain FUEL CELL ENGINEER - [employer] SALES ENGINEER Work Phone: H/O: surgery History of abdom inal surgery Sydni Husain FUEL CELL ENGINEER - [employer] SALES ENGINEER Work Phone: H/O: surgery History of abdom inal surgery Sydni Husain FUEL CELL ENGINEER - [employer] SALES ENGINEER Work Phone: H/O: surgery History of abdom inal surgery Sydni Husain FUEL CELL ENGINEER - [employer] SALES ENGINEER Work Phone: H/O: surgery History of abdom inal surgery Sydni Husain FUEL CELL ENGINEER - [employer] SALES ENGINEER Work Phone: Vaccine refused by patient Missed vaccination due to patient refusal Palak Thurman DO Work Phone: Plan of Treatment Date Care Activity Detail Author Start: 2040 RSV Immunization for Adults (1 - 1-dose 75+ series) RSV Immunization for Adults (1 - 1-dose 75+ series) [facility] [employer] Start: 2040 [facility] [employer] Start: 01-24-2035 Screening for malignant neoplasm of colon [facility] [employer] Start: 03-05-2026 Creatinine measurement [facility] [employer] Start: 03-05-2026 Potassium measurement [facility] [employer] Start: 02-23-2026 Creatinine measurement Creatinine Level [facility] [employer] Start: 02-23-2026 Echocardiography Echocardiogram [facility] Start: 02-23-2026 Potassium measurement Potassium Level [facility] Start: 02-23-2026 [facility] Start: 02-12-2026 Creatinine measurement Creatinine Level [facility] Start: 02-12-2026 Potassium measurement Potassium Level [facility] Start: 02-01-2026 Creatinine measurement [facility] Start: 02-01-2026 Potassium measurement [facility] Start: 01-16-2026 Creatinine measurement Creatinine Level [facility] Start: 01-16-2026 Potassium measurement Potassium Level [facility] Start: 01-15-2026 Creatinine measurement Creatinine Level [facility] Start: 01-15-2026 Potassium measurement Potassium Level [facility] Start: 01-12-2026 Creatinine measurement Creatinine Level [facility] Start: 01-12-2026 Potassium measurement Potassium Level [facility] Start: 01-08-2026 Creatinine measurement Creatinine Level [facility] Start: 01-08-2026 Potassium measurement [facility] Start: 01-05-2026 Potassium measurement Potassium Level [facility] Start: 01-01-2026 Creatinine measurement Creatinine Level [facility] Start: 01-01-2026 Potassium measurement Potassium Level [facility] Start: 12-30-2025 Creatinine measurement Creatinine Level [facility] Start: 12-30-2025 Potassium measurement Potassium Level [facility] Start: 12-25-2025 Creatinine measurement Creatinine Level [facility] Start: 12-25-2025 Potassium measurement Pot[facility] Start: 12-22-2025 Creatinine measurement Creatinine Level [facility] Start: 12-22-2025 Potassium measurement Potassium Level [facility] Start: 12-18-2025 Creatinine measurement Creatinine Level [facility] Start: 12-18-2025 Potassium measurement Potassium Level [facility] Start: 12-15-2025 Creatinine measurement Creatinine Level [facility] Start: 12-15-2025 Potassium measurement Potassium Level [facility] Start: 12-11-2025 Creatinine measurement Creatinine Level [facility] Start: 12-11-2025 Potassium measurement Potassium Level [facility] Start: 12-04-2025 Creatinine measurement [facility] Start: 12-04-2025 Potassium measurement Potassium Level [facility] Start: 12-01-2025 Creatinine measurement Creatinine Level [facility] Start: 12-01-2025 Potassium measurement Potassium Level [facility] Start: 11-30-2025 Creatinine measurement Creatinine Level [facility] Start: 11-30-2025 Potassium measurement Potassium Level [facility] Start: 11-29-2025 Creatinine measurement Creatinine Level [facility] Start: 11-29-2025 Potassium measurement Potassium Level [facility] Start: 11-24-2025 Echocardiography Echocardiogram [facility] Start: 11-24-2025 [facility] Start: 2025 RSV Immunization aged 60 or older (1 - 1-dose 60+ series) RSV Immunization aged 60 or older (1 - 1-dose 60+ series) [facility] Start: 11-03-2025 Creatinine measurement Creatinine Level [facility] Start: 11-03-2025 Potassium measurement Potassium Level [facility] Start: 11-02-2025 Echocardiography Echocardiogram [facility] Start: 10-11-2025 Screening for malignant neoplasm of lung [facility] Start: 05-28-2025 Influenza vaccination Influenza Vaccine (Season Ended) [facility] Start: 05-28-2025 [facility] Start: 04-05-2025 End: 04-05-2025 ambulatory [facility] Start: 04-05-2025 End: 04-05-2025 Patient encounter procedure 04/05/2025 1:00 PM EDT Office Visit [facility] [address] [place] [address] Sophia Lara, FUEL CELL ENGINEER - [employer] SALES ENGINEER [address] [place] [address] [facility] Start: 04-03-2025 End: 04-03-2025 [facility] Start: 04-03-2025 End: 04-03-2025 Patient encounter procedure 04/03/2025 10:45 AM EDT Office Visit [facility] [address] [place] [address] Zoe Valadez, FUEL CELL ENGINEER - [employer] SALES ENGINEER [address] [facility] [place] [id number] [facility] Start: 03-26-2025 End: 02-23-2026 CT Chest WO contrast CT chest wo IV contrast Imaging Routine Hemoptysis Expected: 03/26/2025, Expires: 02/23/2026 [facility] Work Phone: Comment on above: Expected: 03/26/2025, Expires: Start: 02-15-2025 End: 02-15-2025 ambulatory [facility] Start: 02-15-2025 End: 02-15-2025 Patient encounter procedure [facility] Start: 02-14-2025 End: 02-14-2025 ambulatory [facility] Infectious Disease - [facility] Start: 02-14-2025 End: 02-14-2025 Patient encounter procedure [facility] Start: 12-25-2024 End: 12-25-2024 Patient encounter procedure 12/25/2024 10:00 AM EDT Office Visit [facility] [address] [place] [id number] Sophia Lara APRN - [employer] SALES ENGINEER [address] [place] [address] [facility] Start: 12-18-2024 End: 12-18-2024 Telemedicine consultation with patient 12/18/2024 1:00 PM EDT Telemedicine [facility] Thoracic Surgery - [facility] [address] [place] [id number] Osiris Terrell, FUEL CELL ENGINEER - [employer] SALES ENGINEER [address] [place] [address] [facility] Cardiovascular Thoracic Surgery - [facility] Start: 10-09-2024 End: 10-09-2024 Patient encounter procedure 10/09/2024 3:00 PM EST Appointment [facility] [address] [facility] [address] [place] [id number] Jr Shah MD [address] [facility] [address] [place], [place] [address] [facility] Start: 09-27-2024 Medicare Advantage Annual Wellness Visit Medicare Advantage Annual Wellness Visit [facility] Start: 09-27-2024 [facility] Start: 09-13-2024 End: 09-13-2024 Patient encounter procedure 09/13/2024 3:00 PM EST Appointment [facility] [address] [facility] [address] [place] [address] Jr Shah MD [address] [facility] [address] [place] [address] [facility] Start: 09-11-2024 End: 08-28-2026 US Heart Transthoracic Transthoracic echocardiogram (TTE) complete with contrast, bubble, strain, and 3D PRN CV Echocardiography Routine Nonrheumatic aortic valve stenosis Expected: 09/11/2024 (Approximate), Expires: 08/28/2026 [facility] [employer] [facility] Work Phone: Comment on above: Expected: 09/11/2024 (Approximate), Expi res: 08/28/2026 Start: 08-17-2024 Thyroid stimulating hormone measurement TSH Level [facility] Start: 05-28-2024 COVID-19 Vaccine ( season) COVID-19 Vaccine ( season) [facility] Start: 05-28-2024 Influenza vaccination [facility] Start: 05-28-2024 [facility] Start: 02-07-2024 End: 02-07-2024 Patient encounter procedure [facility] Start: 11-29-2023 End: 11-29-2023 Patient encounter procedure 11/29/2023 3:00 PM EST Appointment [facility] [address] [place] [address] Fransisco Pineda, FUEL CELL ENGINEER [address] [place] [address] [facility] [address] [facility] Start: 11-24-2023 End: 11-24-2023 Patient encounter procedure 11/24/2023 1:30 PM EST Office Visit [facility] Dermatology [address] [facility] [address] [place] [phone] Madhuri De La Rosa MD [address] [facility] [place] [address] [facility] Start: 09-27-2023 Behavioral Health Screening Behavioral Health Screening [facility] Start: 09-27-2023 Medicare Advantage Annual Wellness Visit Medicare Advantage Annual Wellness Visit [facility] Start: 09-07-2023 End: 09-07-2024 CT Chest for screening WO contrast CT lung screening low dose Imaging Routine Nicotine dependence, cigarettes, uncomplicated Personal history of nicotine dependence Expected: 09/07/2023, Expires: 09/07/2024 [facility] Work Phone: Comment on above: Expected: 09/07/2023, Expires: Start: 05-28-2023 COVID-19 Vaccine ( season) COVID-19 Vaccine ( season) [facility] Start: 05-28-2023 Influenza vaccination Influenza Vaccine (#1) [facility] Start: 05-10-2023 DIABETES SCREEN DIABETES SCREEN [facility] Start: 05-10-2023 Diabetes Screening Diabetes Screening [facility] Start: 03-13-2023 DIABETES SCREEN DIABETES SCREEN [facility] Start: 05-28-2022 Influenza vaccination INFLUENZA (Season Ended) [facility] Start: 10-22-2021 End: 10-22-2021 Patient encounter procedure 10/22/2021 Office Visit Dermatology Madhuri De La Rosa MD [address] [facility] [place] [address] [facility] Start: 05-28-2021 Influenza vaccination [facility] Start: 05-20-2021 Hepatitis B Vaccines (1 of 1 - Risk Dialysis 4-dose series) Hepatitis B Vaccines (1 of 1 - Risk Dialysis 4-dose series) [facility] Start: 05-20-2021 [facility] Start: 05-10-2021 HEMOGLOBIN/HEMATOCRIT HEMOGLOBIN/HEMATOCRIT [facility] Start: 05-10-2021 SERUM CREATININE SERUM CREATININE [facility] Start: 12-08-2020 Annual Wellness Visit (AWV) Annual Wellness Visit (AWV) [facility] Start: 2020 PROSTATE CANCER SCREENING DISCUSSION PROSTATE CANCER SCREENING DISCUSSION [facility] Start: 2020 Prostate specific antigen measurement Prostate Cancer Screening Discussion [facility] Start: 11-12-2020 End: 11-12-2020 Office Visit 11/12/2020 Office Visit Dermatology Madhuri De La Rosa MD [address] [facility] [place] [address] [phone] [facility] Start: 10-19-2020 Screening for malignant neoplasm of colon [facility] Start: 05-28-2020 Influenza vaccination [facility] Start: 05-28-2019 Influenza vaccination Flu vaccine (#1) [facility] Work Phone: Start: 2015 Screening for malignant neoplasm of colon Colon cancer screen colonoscopy [employer] Start: 2015 Shingles Vaccine (1 of 2) Shingles Vaccine (1 of 2) [facility] Start: 2015 SHINGRIX VACCINE (1 of 2) SHINGRIX VACCINE (1 of 2) [facility] Start: 2015 Tuberculosis screening COLORECTAL CANCER SCREENING,SEE MODIFIER [facility] Start: 2015 Zoster Vaccines (1 of 2) Zoster Vaccines (1 of 2) [facility] Start: 2015 [facility] Start: 2010 COLOGUARD (FIT-DNA) COLOGUARD (FIT-DNA) [facility] Start: 2010 Colonoscopy COLONOSCOPY [facility] Start: 2010 COLORECTAL CANCER SCREENING COLORECTAL CANCER SCREENING [facility] Start: [address] COLONOGRAPHY [facility] Start: 2010 FECAL OCCULT BLOOD FECAL OCCULT BLOOD [facility] Start: 2010 Screening for malignant neoplasm of colon [facility] Start: 2010 SIGMOIDOSCOPY SIGMOIDOSCOPY [facility] Start: 2005 Diabetes screen Diabetes screen [email or web address] Start: 2005 Lipid panel Lipid screen [facility] Start: 2000 Diabetes screen Diabetes screen [facility] Start: 2000 Lipid panel Lipid Screening [facility] Start: 2000 LIPID SCREEN LIPID SCREEN [facility] Start: 1984 DTaP/Tdap/Td vaccine (1 - Tdap) DTaP/Tdap/Td vaccine (1 - Tdap) [facility] Start: 1984 DTaP/Tdap/Td Vaccines (1 - Tdap) DTaP/Tdap/Td Vaccines (1 - Tdap) [facility] Start: 1984 Pneumococcal Vaccine: 50+ Years (1 of 2 - PCV) Pneumococcal Vaccine: 50+ Years (1 of 2 - PCV) [facility] Start: 1984 Urine microalbumin profile [facility] Start: 1984 [facility] Start: 1983 ANNUAL PCP TEAM CHRONIC DISEASE VISIT ANNUAL PCP TEAM CHRONIC DISEASE VISIT [facility] Start: 1983 Anxiety Screening Anxiety Screening [facility] Start: 1983 Depression Screening Depression Screening [facility] Start: 1983 Diabetes mellitus screening [facility] Start: 1983 HEPATITIS C SCREENING HEPATITIS C SCREENING [facility] Start: 1983 HIV SCREENING HIV SCREENING [facility] Start: 1983 HIV screening HIV Screening [facility] Start: 1977 Adult depression screening assessment DEPRESSION SCREENING [facility] Start: 1977 [facility] Start: 1971 Pneumococcal 0-64 years Vaccine (1 of 1 - PPSV23) Pneumococcal 0-64 years Vaccine (1 of 1 - PPSV23) [place] Start: 1971 Pneumococcal 0-64 years Vaccine (1 of 2 - PPSV23) Pneumococcal 0-64 years Vaccine (1 of 2 - PPSV23) [facility] Start: 1971 Pneumococcal vaccination Pneumococcal Vaccine (1 of 2 - PCV) [facility] Start: 1971 Pneumococcal Vaccine: Pediatrics (0 to 5 Years) and At-Risk Patients (6 to 64 Years) (1 - PCV) Pneumococcal Vaccine: Pediatrics (0 to 5 Years) and At-Risk Patients (6 to 64 Years) (1 - PCV) [facility] Start: 1971 Pneumococcal Vaccine: Pediatrics (0 to 5 Years) and At-Risk Patients (6 to 64 Years) (1 of 2 - PCV) Pneumococcal Vaccine: Pediatrics (0 to 5 Years) and At-Risk Patients (6 to 64 Years) (1 of 2 - PCV) [facility] Start: 1970 COVID-19 Vaccine (1) COVID-19 Vaccine (1) [facility] Start: 1966 MMR Vaccines (1 of 1 - Standard series) MMR Vaccines (1 of 1 - Standard series) [facility] Start: 1966 [facility] Start: 05-17-1966 COVID-19 Vaccine (#1) COVID-19 Vaccine (#1) [facility] Start: 05-17-1966 Examination of skin Derm Melanoma Skin Check [facility] Start: 1965 Lipid panel [facility] Start: 1965 Medicare Advantage Annual Wellness Visit (AWV) Medicare Advantage Annual Wellness Visit (AWV) [facility] Start: 1965 Screening for malignant neoplasm of colon [facility] [employer] Basic metabolic 2000 panel - Serum or Plasma Basic Metabolic Panel Lab Routine Daily until discontinued starting 10/23/2019, 5 completed [employer] Work Phone: Comment on above: Daily until discontinued starting 2019, 5 completed CBC W Auto Different ial panel - Blood CBC Auto Differential Lab Routine Daily until discontinued starting 10/23/2019, 5 completed [employer] Work Phone: Comment on above: Daily until discontinued starting 2019, 5 completed End: 12-25-2022 COLONOSCOPY DIAGNOSTIC COLONOSCOPY DIAGNOSTIC Endoscopy Routine Acute blood loss anemia Rectal bleeding 1 Occurrences starting 12/25/2021 until 12/25/2022 [facility] Work Phone: Comment on above: 1 Occurrences starting 12/25/2021 until 12/25/2022 End: 12-30-2022 COLONOSCOPY DIAGNOSTIC COLONOSCOPY DIAGNOSTIC Endoscopy Routine Other iron deficiency anemia Rectal bleeding 1 Occurrences starting 12/30/2021 until 12/30/2022 [facility] Work Phone: Comment on above: 1 Occurrences starting 12/30/2021 until 12/30/2022 Electrocardiogram EKG BIC 2019 3:36 PM EDT [facility] End: 01-22-2025 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 [facility] [employer] Work Phone: End: 10-19-2019 Hemodialysis inpatient Hemodialysis inpatient Dialysis Routine One Time for 1 Occurrences starting 10/19/2019 until 10/19/2019 [employer] Work Phone: Comment on above: One Time for 1 Occurrences starting 09/28 until 10/19/2019 End: 10-21-2019 Hemodialysis inpatient Hemodialysis inpatient Dialysis Routine One Time for 1 Occurrences starting 10/21/2019 until 10/21/2019 [employer] Work Phone: Comment on above: One Time for 1 Occurrences starting 09/28 until 10/21/2019 End: 10-23-2019 Hemodialysis inpatient Hemodialysis inpatient Dialysis Routine One Time for 1 Occurrences starting 10/23/2019 until 10/23/2019 [employer] Work Phone: Comment on above: One Time for 1 Occurrences starting 09/28 until 10/23/2019 Hemodialysis inpatient Hemodialy sis inpatient Dialysis Routine Every MWF until discontinued starting 10/27/2019 [employer] Work Phone: Comment on above: Every MWF until discontinued starting End: 01-26-2025 Hemoglobin [Mass/volume] in Blood [facility] [employer] Work Phone: End: 02-21-2025 Legionella and Streptococcus Urine Antigen [employer] Work Phone: Magnesium [Mass/volu me] in Serum or Plasma MAGNESIUM Lab Routine Daily until discontinued starting 10/23/2019, 5 completed [employer] Work Phone: Comment on above: Daily until discontinued starting 2019, 5 completed End: 01-22-2025 Peripheral blood smear [employer] [facility] End: 01-22-2025 Peripheral Blood Smear [employer] [facility] Peripheral blood smear [employer] Peripheral Blood Smear [facility] [employer] Phosphate [Mass/volu me] in Serum or Plasma Phosphorus Lab Routine Daily until discontinued starting 10/23/2019, 5 completed [employer] Work Phone: Comment on above: Daily until discontinued starting 2019, 5 completed End: 09-15-2021 Special treatments and procedures [employer] Work Phone: Comment on above: Once for 1 Occurrences starting 09/15/20 until 09/15/2021 End: 10-26-2019 Surgical Pathology Surgical Pathology Lab STAT Once for 1 Occurrences starting 10/26/2019 until 10/26/[address] [facility] Work Phone: Comment on above: Once for 1 Occurrences starting 10/26/19 20 until 10/26/2019 Surgical Pathology Surgical Path ology Lab STAT 10/26/2019 10:00 AM EST [facility] Work Phone: End: 02-21-2025 Urine Hold Cup [facility] Immunizations Immunization Date Immunization Notes Care Provider Fa cili 05-20-2020 hepatitis B vaccine, unspecified formulation Jese Frank MD Work Phone: [facility] [employer] 01-19-2020 hepatitis B vaccine, unspecified formulation Jese Frank MD Work Phone: [facility] [employer] 12-19-2019 hepatitis B vaccine, unspecified formulation Jese Frank MD Work Phone: [facility] [employer] 11-15-2019 hepatitis B vaccine, unspecified formulation Jese Frank MD Work Phone: [facility] [employer] Payers Date Payer Category Payer Self-pay 2023 [facility] MEDICAID ONLY [id number] 2023 Medicare HMO [id number] 2023 Medicare [id number] 2020 Medicaid [id number] 2020 Medicare [id number] 2020 Medicare [id number] 2020 Unknown [id number] 2020 Medicaid MEDICAID [facility] MEDICAID [id number] 2020-Present Medicaid [id number] 2019 Medicare MEDICARE MEDICAR E A AND B [id number] 2019-Present [place] Medicare [id number] Unknown [id number] Unknown [id number] Unknown [id number] Social History Date Type Detail Facility Start: 1993 End: 10-13-2024 Tobacco smoking status VTIS Current every day smoker [facility] Start: 1993 History of tobacco use Cigarette Smoker [facility] Work Phone: Start: 03-13-2020 End: 02-21-2025 Cigarettes smoked current (pack per day) - Reported [facility] Work Phone: Start: 03-13-2020 End: 10-13-2024 Tobacco use and exposure Never used [facility] Start: 03-13-2020 End: 08-16-2023 Alcohol intake Current drinker of alcohol (finding) [facility] Work Phone: Start: 1965 Sex Assigned At Not on file [facility] Work Phone: Start: 12-15-2021 End: 05-01-2023 Exposure to SARS-CoV-2 (event) Not sure [facility] Start: 10-19-2019 Alcohol Comment on weekends [facility] Work Phone: Start: 12-25-2021 End: 01-30-2025 Alcohol intake Ex-drinker (finding) [facility] Start: 1965 Sex Assigned At Male [facility] Start: 05-01-2023 End: 02-21-2025 Alcohol Use Disorder Identification Test - Consumption [AUDIT-C] [facility] How often to you hav e a drink containing alcohol? Never [facility] How many standard dr inks containing alcohol do you have on a typical day? Patient does not drink [facility] Start: 11-15-2020 Gender identity Identifies as male gender (finding) [facility] Start: 08-10-2020 Sexual orientation Heterosexual (finding) [facility] Start: 04-27-2022 Sex Male (finding) [facility] History of tobacco use Passive smoker [facility] Start: 10-13-2024 Tobacco Comment Started at 28, 3 PPD, tapered down to 1 PPD in 2020 after quitting drinking. 10/27/24 [facility] Tobacco smoking stat us VTIS Unknown if ever smoked [facility] Work Phone: Start: 02-20-2025 Tobacco smoking status VTIS Ex-smoker [facility] Start: 1993 History of tobacco use Current smoker [facility] How often do you nee d to have someone help you when you read instructions, pamphlets, or other written material from your doctor or pharmacy [SILS] Sometimes [facility] Has the appweevr, [employer], [employer], or water [employer] threatened to shut off services in your home in past 12Mo No [facility] Do you feel stress - tense, restless, nervous, or anxious, or unable to sleep at night because your mind is troubled all the time - these days [OSQ] To some extent [facility] (I/We) worried wheth er (my/our) food would run out before (I/we) got money to buy more. Never true [facility] Medical Equipment Procedure Code Equipment Code Equipment Origin al Text Equipment Identifier Dates [id number] Start: 10-12-2024 [id number] Start: 10-09-2024 [id number] Start: 10-14-2024 [id number] Start: 10-14-2024 [id number] Start: 10-14-2024 [id number] Start: 10-14-2024 [id number] Start: 10-14-2024 [id number] Start: 10-14-2024 [id number] Start: 10-14-2024 [id number] Start: 11-03-2024 [id number] Start: 01-30-2025 Functional Status Date Assessment Result Facility [facility] Clinical Notes 10-24-2019 to 03-05-2025 Merlene León, SHADOWGRAPH OPERATOR - 03/05/2025 2:25 PM Pati Nicole MD - 03/05/2025 11:15 AM Aracelis Dial, [facility] - 03/05/2025 7:32 AM EDTCyolanda Hurtado DO - 03/05/2025 7:13 AM EDTDisjavier Instr - ROSENDO Note Date & Type Note Facility 03-05-2025 History of Presen t illness Narrative Images from the original note were not included. PHYSICAL THERAPY [facility] Treatment Note Name/MRN: Jair Snyder ([id number]) Date of : 1965 Age: 59 y.o. [facility] Discharge Recommendation: Jail Facility Equipment Needed: (tbd) Assessment Increased time for all activity completion. SpO2 97% without oxygen. General weakness, SOB. Rec skilled PT Subjective Agree to PT. Reluctant, not feeling well Pain: buttocks, request pain meds. Nurse notified Medical Precautions: No active isolations Proper PPE donned/doffed in accordance with facility standards. Fall Risk: Roque Fall Risk Score: 100 (Low Risk) Roque Fall Risk Score: 100 (High Risk) Precautions/Restrictions: Lines/Drains/Airways: PIV, HD fistula LUE, wound vac R hip Fall Precautions Overall Cognitive Status: WFL Overall Orientation Status: Oriented x4 Family/Caregiver Present: none Objective Bed Mobility Supine to sit: Supervision Sit to supine: Modified Independent Rolling to left: Modified Independent Transfers/Mobility Sit to stand: Min Assist Stand to sit: Min Assist Multiple reps, varied surface height, increased effort/time Device(s) used: Front wheeled walker Educated UE placement,poor carryover, decreased compliance safe technique. Multiple reps, varied surface height Ambulation Ambulation 1 Assistive device(s) used: Front wheeled walker Assist level: SBA Distance (ft): ~34'x2 Quality of gait: antalgic, uneven step length, slow saida Balance: stance unsupported min assist, lateral instability. Stance UE support min assist, decreased hip/head extension Plan Continue acute PT per plan of care. Safety/Education Safety Safety Devices in place: call light within reach, left in bed, bed alarm in place, gait belt, and no alarms engaged upon entry Restraints: No Education See above Outcome Measures AM-PAC AM-PAC Inpatient Mobility Raw Score (No Stairs) : 19 JH-HLM JH-HLM Score: Walked 25 ft or more (i.e. walked outside of room) Goals Patient Stated Goal: rest Encounter Problems Encounter Problems (Active) Mobility Patient will ambulate 100 feet with supervision and rolling walker in order to improve safety and independence with mobility. (Progressing) Start: 02/25/25 Expected End: 03/25/25 Transfers Patient will perform bed mobility with modified independence in order to improve independence and prepare for out of bed mobility. (Adequate for Discharge) Start: 02/25/25 Expected End: 03/25/25 Patient will complete functional transfer with rolling walker with modified independence in order to prepare for ambulation. (Progressing) Start: 02/25/25 Expected End: 03/25/25 Therapy Time Individual Co-treatment Time In 1340 Time Out 1403 Minutes 23 Timed Code Treatment Minutes: (fa-gt) Merlene León PTA Cosigned by Anthony Black PT at 03/05/2025 2:53 PM EDT Nephrology Progress Note Following for ESRD Pt seen in room c/o SOB resting comfortably in bed No n/v Current Inpatient Medications: Reviewed on NOV. Vitals: BP 140/83 (BP Location: Right arm, Patient Position: Lying) Pulse 86 Temp 36.2 C (97.1 F) (Temporal) Resp 20 Ht 1.778 m (5' 10) Wt 60.8 kg (134 lb) SpO2 100% BMI 19.23 kg/m BLOOD PRESSURE RANGE: Systolic (24hrs), Av , Min:128 , Max:140 ; Diastolic (24hrs), Av, Min:73, Max:83 24HR INTAKE/OUTPUT: Intake/Output Summary (Last 24 hours) at 03/05/2025 1115 Last data filed at 03/05/2025 0611 Gross per 24 hour Intake 500 ml Output -- Net 500 ml Physical exam: Constitutional: NAD Respiratory: CTAB without w/r/r Abdomen: +bs, soft, nt, nd Ext: no lower extremity edema Data: Labs: Recent Labs 03/03/25 0212 03/04/25 0156 03/05/25 0343 WBC 8.9 7.7 9.1 HGB 8.3* 7.7* 7.7* HCT 27.8* 25.9* 25.7* MCV 98.9 98.5 99.2* PLT 397 324 303 Recent Labs 03/04/25 0156 03/05/25 0343 03/05/25 0639 NA 141 136 136 K 5.1 6.6* 5.9* CL 103 102 102 CO2 27 25 26 GLUCOSE 99 77 68* CALCIUM 9.4 9.7 9.7 BUN 18 26* 27* CREATININE 2.41* 3.03* 3.10* Assessment and Plan: 59 y.o. 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 Patient recently admitted to this facility 01/19 for accidental removal of tracheostomy, patient also was treated for GI bleed at that time now back on anticoags. Pt presents to ER for hemoptysis. Nephrology consultedf or ESRD management. ESRD on T HD - we will keep the patient in TTS. Volume. - Bp acceptable - UF as tolerated with HD Electrolytes : Hyperkalemia Adjustment and stabilization with HD low k diet Anemia in CKD. 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 Feel free to reach out with any questions or concerns Bree Molina FUEL CELL ENGINEER [employer] SALES ENGINEER A-G CASTING COORDINATOR [facility] [place] [phone] I reviewed with FUEL CELL ENGINEER-[employer] SALES ENGINEER the medical history and the findings on physical examination. I discussed the patient s diagnosis and concur with the treatment plan as documented in his note. Please call [phone] or message me through [employer] with any questions or concerns. [facility] Anticoagulation Management Service ([facility]) Inpatient Warfarin Consult HPI: Jun Snyder is a 59 y.o. male admitted on 02/20/2025 for Hemoptysis [R04.2]. Medical History[1] Patient is on warfarin for mechanical AVR and has a goal INR 2.0 - 3.0. Patient was referred to [facility], but so far has been managed at facilities, most recently [facility]. Pt's home dose of warfarin is 1.5mg daily except 2.5mg on MWF. Pt's last INR at the facility was 1.4 on 02/20. S/sx of bleeding= none noted Interacting medications= none Labs: Recent Labs 03/03/25 0212 03/04/25 0156 03/05/25 0343 HGB 8.3* 7.7* 7.7* HCT 27.8* 25.9* 25.7* PLT 397 324 303 Recent Labs 03/05/25 0343 INR 1.8* Date INR Dose 03/05 1.8 7.5mg 6/8 1.5 7.5 mg 6/7 1.6 6 mg 6 1.4 5mg 6/ 1.4 4mg / 1.3 3mg 02/27 1.3 2mg / 1.3 1.5mg 02/25 1.3 1 mg 02/24 1.3 1 mg 02/23 1.3 HOLD 02/22 1.4 Held 02/21 --- Held 02/20 1.4 Held Assessment/Plan: 1. INR is subtherapeutic. Patient has been very sensitive to warfarin in the past, with significant history of bleeding (had GIB recently), history of ICH in September 2024, and presentation this admission of hemoptysis. Will repeat dose of 7.5mg for one more day 2. Monitor for s/s of bleeding and drug interactions. Will adjust dose accordingly. 3. Will facilitate [facility] follow-up upon discharge. Likely will return to facility initially where they will manage warfarin, and [facility] will take over when discharged from facility. Tiffanie Dial RPh [facility] Consult Service is available daily [phone] via [employer] Secure Chat. [1] Past Medical History: Diagnosis Date Acute renal failure (ARF) ([facility]) 10/19/2019 Anemia 12/30/2021 Calcification of abdominal aorta ([facility]) 10/08/202309/[address] abd Diverticulosis 10/08/2023 ESRD on hemodialysis ([facility]) ([facility]) 10/26/2019 Hemodialysis patient ([facility]) ([facility]) HTN (hypertension) 12/01/2022 Hypertension IgA nephropathy 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 10/26/2019 Missed vaccination due to patient refusal 10/08/2023 Has a number of non-scientific based beliefs which interfere with his understanding and acceptance of the medical benefit of vaccination. Nonrheumatic aortic valve stenosis 10/08/2023 Paroxysmal A-fib ([facility]) ([facility]) 08/18/2023 Tobacco abuse 10/08/2023 Hospitalist Progress Note - [facility] [employer] [facility] 03/05/2025 7:13 AM [phone]: Please page me for patient care issues. [phone]: Please page [facility] Hospitalist - [facility] for any issues. Subjective and Objective: Admit Date: 02/20/2025 PCP: Leilani Troncoso Chief Complaint Patient presents with Coughing Up Blood Pt arrives via EMS due to coughing up blood. This began around 1200 today while he was at dialysis. Pt endorses nausea, but denies any related abdominal pain. 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 Adult diet Regular Dietary Orders (From admission, onward) Start Ordered 02/27/25 1254 Supplement:Breakfast, Dinner; Nepro w/CARB Steady Until discontinued Question Answer Comment Frequency Breakfast Frequency Dinner Select supplement: Nepro w/CARB Steady 02/27/25 1254 02/21/25 1021 Adult diet Regular Diet effective now Question: Diet type Answer: Regular 02/21/25 1021 I/O last 3 completed shifts: In: 3463.1 (57 mL/kg) [P.O.:900; I.V.:2563.1 (42.2 mL/kg)] Out: - (0 mL/kg) Weight: 60.8 kg @IODETAILS@ @[id number]@ Medications: Continuous Meds[1] Scheduled Meds[2] Recent Labs 03/03/25 0212 03/04/25 0156 03/05/25 0343 WBC 8.9 7.7 9.1 HGB 8.3* 7.7* 7.7* PLT 397 324 303 Recent Labs 03/04/25 0156 03/05/25 0343 03/05/25 0639 NA 141 136 136 K 5.1 6.6* 5.9* CL 103 102 102 CO2 26 BUN 18 26* 27* CREATININE 2.41* 3.03* 3.10* GLUCOSE 99 77 68* No results for input(s): AST, ALT, BILITOT, ALKPHOS in the last 72 hours. No lab exists for component: ALB No results found for: TRIG, HDL, LDLCALC, CHOL No results found for: PHART, PO2ART, [id number] Recent Labs 03/04/25 0156 03/04/25 0946 03/05/25 0343 INR 1.5* 1.6* 1.8* No results for input(s): CKTOTAL, CKMB, TROPONINI in the last 72 hours. No results for input(s): DDIMER in the last 72 hours. No results found for: HGBA1C No results found for: TSH Urine Culture: No results found for this or any previous visit. Objective: Vitals: BP 140/83 (BP Location: Right arm, Patient Position: Lying) Pulse 86 Temp 36.2 C (97.1 F) (Temporal) Resp 20 Ht 5' 10 (1.778 m) Wt 134 lb (60.8 kg) SpO2 100% BMI 19.23 kg/m Pulse Ox: SpO2 Av.3 % Min: 96 % Max: 100 % Supplemental O2: Past 24 hours events: has BBQ sauce open on his tray with chicken fingers GENERAL: calm, resting, somnolent CARDIOVASCULAR: regular, no extra heart sounds RESPIRATORY: good breath sounds, no wheezes ABDOMEN: non-tender EXTREMITIES: no LE wounds or acute pathology ANATOMY/TUBES/LINES: left arm fistula Running Summary, Assessment, and Plan Jair is a 59 year old male with PMH below who presented with Chief Complaint of Hemoptysis. Chest CTA showed Diffuse, multifocal opacities and possible infiltrates, with peripheral distribution and internal bronchograms versus partial cavitation, which may represent nonspecific infectious or inflammatory process and pneumonitis. Started on IV antibiotics. Admitted for further evaluation and management. Started on IV heparin and home Coumadin held. Seen by Nephro for dialysis needs. Pulm seen for hemoptysis. Gen surg seen for patient request to remove PEG, done 02/23. ID seen for infection, recommended switch to augmentin 500mg q24 (to be taken after HD on HD days) until 03/10/25. Re-started home Coumadin while bridging with IV Heparin. Course was delayed due to prolonged time to therapeutic INR with history if GI bleed and intracranial hemorrhage requiring slow up-titrating. Acute, acute on chronic, unstable/uncontrolled chronic problems/diagnoses: Hemoptysis in the setting of bilateral cavitary lesion Klebsiella pneumonia with lung abscess Sacral wound Chronic anticoagulation due to mechanical valve replacement along with history of A-fib, Goal INR 2-3 ESRD on dialysis Severe malnutrition Hyperkalemia IGA nephropathy Subtherapeutic INR Endocarditis ruled out Stable chronic problems affecting care, new non-acute diagnoses: CAD s/p prior CABG HTN Intracranial hemorrhage As a result of the above findings & factors, the following mgmt was pursued: - IV Zosyn, discharge planning: switch to augmentin 500mg q24 (to be taken after HD on HD days) until 03/10/25 - HR 86 with BP 140/83 today - OK to dc with INR 1.8, [facility] will follow at SNF - am labs, replace lytes prn - PT/OT/CM/SW as appropriate - delirium precautions: limit night-time awakening - DVT prophylaxis: Coumadin Complexity: Acute illness or injury posing a threat to life or body function (HIGH). Risk: Admission to hospital-level care was considered or occurred (HIGH). Advance Directive: Full Anticipated Discharge - Date - medically stable for discharge - Location - [facility]) - Pending the following - dispo, Oxy script already prepped on chart Total time spent (which include face to face and non face to face encounters) in minutes: 53 Toxic drug monitoring/narrow therapeutic index drug monitoring : # Drug name : Coumadin # Route administered : oral # Method of monitoring : INR and monitoring for bleeding Extended Emergency Contact Information Primary Emergency Contact: Omar Snyder Mobile Relation: Child Secondary Emergency Contact: Toma Mcneil Mobile Relation: Partner Anthony Hurtado DO Division of Hospitalist Medicine Inpatient Medical Services[facility] [1] heparin, 5-30 Units/kg/hr, Last Rate: 21 Units/kg/hr (03/05/25 0433) [2] B complex-vitamin C-folic acid, 1 capsule, Oral, Daily metoprolol tartrate, 25 mg, Oral, BID pantoprazole, 40 mg, Oral, BID AC piperacillin-tazobactam, 2,250 mg, IntraVENous, q6h QUEtiapine, 25 mg, Oral, Nightly sevelamer carbonate, 800 mg, Oral, TID WC sodium zirconium cyclosilicate, 5 g, Oral, Daily Nephrology Progress Note Following for ESRD: No events overnight No shortness of breath Current Inpatient Medications: Reviewed on NOV. Vitals: BP 146/88 (BP Location: Right arm, Patient Position: Lying) Pulse 88 Temp 36.6 C (97.9 F) (Temporal) Resp 18 Ht 1.778 m (5' 10) Wt 60.8 kg (134 lb) SpO2 100% BMI 19.23 kg/m BLOOD PRESSURE RANGE: Systolic (24hrs), Av , Min:127 , Max:158 ; Diastolic (24hrs), Av, Min:72, Max:91 24HR INTAKE/OUTPUT: Intake/Output Summary (Last 24 hours) at 03/04/2025 1725 Last data filed at 03/04/2025 0940 Gross per 24 hour Intake 2963.13 ml Output -- Net 2963.13 ml Physical exam: Constitutional: NAD Cardiovascular: Normal S1, S2 without m/r/g Respiratory: CTAB without w/r/r Abdomen: +bs, soft, nt, nd Ext: no lower extremity edema Data: Labs: Recent Labs 03/02/25 0004 03/03/25 0212 03/04/25 0156 WBC 7.4 8.9 7.7 HGB 7.7* 8.3* 7.7* HCT 25.4* 27.8* 25.9* MCV 98.1 98.9 98.5 PLT 354 397 324 Recent Labs 03/03/25 0212 03/03/25 1409 03/04/25 0156 NA 140 139 141 K 6.2* 4.8 5.1 CL 101 100 103 CO2 28 29 27 GLUCOSE 93 71* 99 CALCIUM 9.8 9.2 9.4 BUN 26* 14 18 CREATININE 3.21* 1.92* 2.41* Assessment and Plan: 59 y.o. 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 Patient recently admitted to this facility 01/19 for accidental removal of tracheostomy, patient also was treated for GI bleed at that time now back on anticoags. Pt presents to ER for hemoptysis. Nephrology consultedf or ESRD management. ESRD on T TS HD - we will keep the patient in TTS. - L AVF - seen on HD Volume. - Bp acceptable - UF as tolerated with HD Electrolytes : Hyperkalemia Adjustment and stabilization with HD low k diet Anemia in CKD. 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 PHYSICAL THERAPY [facility] Name/MRN: Jair Snyder ([id number]) Date: 03/04/2025 Attempted to initiate PT this date; upon arrival, patient states he is needs to have a bowel movement and does not want to do PT. Offered to ambulate patient to bathroom or use of a bedpan however patient declines. Will continue to follow. Emily Stanley PTA Cosigned by Darryn Tay PT at 03/04/2025 3:38 PM EDT Hospitalist Progress Note - [facility] [place] 03/04/2025 9:11 AM [phone]: Please page me for patient care issues. [phone]: Please page [facility] Hospitalist - [facility] for any issues. Subjective and Objective: Admit Date: 02/20/2025 PCP: Leilani Troncoso Chief Complaint Patient presents with Coughing Up Blood Pt arrives via EMS due to coughing up blood. This began around 1200 today while he was at dialysis. Pt endorses nausea, but denies any related abdominal pain. 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 Adult diet Regular Dietary Orders (From admission, onward) Start Ordered 02/27/25 1254 Supplement:Breakfast, Dinner; Nepro w/CARB Steady Until discontinued Question Answer Comment Frequency Breakfast Frequency Dinner Select supplement: Nepro w/CARB Steady 02/27/25 1254 02/21/25 1021 Adult diet Regular Diet effective now Question: Diet type Answer: Regular 02/21/25 1021 I/O last 3 completed shifts: In: 2833 (46.6 mL/kg) [I.V.:2833 (46.6 mL/kg)] Out: - (0 mL/kg) Weight: 60.8 kg @IODETAILS@ @[id number]@ Medications: Continuous Meds[1] Scheduled Meds[2] Recent Labs 03/02/25 0004 03/03/25 0212 03/04/25 0156 WBC 7.4 8.9 7.7 HGB 7.7* 8.3* 7.7* PLT 354 397 324 Recent Labs 03/03/25 0212 03/03/25 1409 03/04/25 0156 NA 140 139 141 K 6.2* 4.8 5.1 CL 101 100 103 CO2 28 29 27 BUN 26* 14 18 CREATININE 3.21* 1.92* 2.41* GLUCOSE 93 71* 99 No results for input(s): AST, ALT, BILITOT, ALKPHOS in the last 72 hours. No lab exists for component: ALB No results found for: TRIG, HDL, LDLCALC, CHOL No results found for: PHART, PO2ART, CFC0GNO Recent Labs 03/02/25 0004 03/03/25 0212 03/04/25 0156 INR 1.4* 1.6* 1.5* No results for input(s): CKTOTAL, CKMB, TROPONINI in the last 72 hours. No results for input(s): DDIMER in the last 72 hours. No results found for: HGBA1C No results found for: TSH Urine Culture: No results found for this or any previous visit. Objective: Vitals: BP 146/88 (BP Location: Right arm, Patient Position: Lying) Pulse 88 Temp 36.6 C (97.9 F) (Temporal) Resp 18 Ht 5' 10 (1.778 m) Wt 134 lb (60.8 kg) SpO2 100% BMI 19.23 kg/m Pulse Ox: SpO2 Av.8 % Min: 95 % Max: 100 % Supplemental O2: Past 24 hours events: GENERAL: comfortable without complaints CARDIOVASCULAR: RRR no murmurs RESPIRATORY: clear without wheezes ABDOMEN: non-distended, soft EXTREMITIES: moving all spontaneously ANATOMY/TUBES/LINES: left arm fistula Running Summary, Assessment, and Plan Jair is a 59 year old male with PMH below who presented with Chief Complaint of Hemoptysis. Chest CTA showed Diffuse, multifocal opacities and possible infiltrates, with peripheral distribution and internal bronchograms versus partial cavitation, which may represent nonspecific infectious or inflammatory process and pneumonitis. Started on IV antibiotics. Admitted for further evaluation and management. Started on IV heparin and home Coumadin held. Seen by Nephro for dialysis needs. Pulm seen for hemoptysis. Gen surg seen for patient request to remove PEG, done 02/23. ID seen for infection, recommended switch to augmentin 500mg q24 (to be taken after HD on HD days) until 03/10/25. Re-started home Coumadin while bridging with IV Heparin. Course was delayed due to prolonged time to therapeutic INR with history if GI bleed and intracranial hemorrhage requiring slow up-titrating. Acute, acute on chronic, unstable/uncontrolled chronic problems/diagnoses: Hemoptysis in the setting of bilateral cavitary lesion Klebsiella pneumonia with lung abscess Sacral wound Chronic anticoagulation due to mechanical valve replacement along with history of A-fib, Goal INR 2-3 ESRD on dialysis Severe malnutrition Hyperkalemia IGA nephropathy Subtherapeutic INR Endocarditis ruled out Stable chronic problems affecting care, new non-acute diagnoses: CAD s/p prior CABG HTN Intracranial hemorrhage As a result of the above findings & factors, the following mgmt was pursued: - IV Zosyn, discharge planning: switch to augmentin 500mg q24 (to be taken after HD on HD days) until 03/10/25 - IV Heparin bridge with Coumadin, daily INRs, 1.6 today - HR 86 with BP 140/80 today - Sill discharge over weekend if INR is appropriate - am labs, replace lytes prn - PT/OT/CM/SW as appropriate - delirium precautions: limit night-time awakening - DVT prophylaxis: IV Heparin, dc when INR 1.8 or higher Complexity: Acute illness or injury posing a threat to life or body function (HIGH). Risk: Admission to hospital-level care was considered or occurred (HIGH). Advance Directive: Full Anticipated Discharge - Date - 03/04 - 05/05 - Location - SNF ([facility]) - Pending the following - INR 1.8, dispo, Oxy script already prepped on chart Total time spent (which include face to face and non face to face encounters) in minutes: 52 Toxic drug monitoring/narrow therapeutic index drug monitoring : # Drug name : Coumadin # Route administered : oral # Method of monitoring : INR and monitoring for bleeding Extended Emergency Contact Information Primary Emergency Contact: Omar Snyder Mobile Relation: Child Secondary Emergency Contact: Toma Mcneil Mobile Relation: Partner Anthony Hurtado DO Division of Hospitalist Medicine Inpatient Medical Services[place] [1] heparin, 5-30 Units/kg/hr, Last Rate: 20 Units/kg/hr (03/04/25 0727) [2] B complex-vitamin C-folic acid, 1 capsule, Oral, Daily metoprolol tartrate, 25 mg, Oral, BID pantoprazole, 40 mg, Oral, BID AC piperacillin-tazobactam, 2,250 mg, IntraVENous, q6h QUEtiapine, 25 mg, Oral, Nightly sevelamer carbonate, 800 mg, Oral, TID WC sodium zirconium cyclosilicate, 5 g, Oral, Daily Nephrology Progress Note Following for ESRD: Seen on HD Current Inpatient Medications: Reviewed on NOV. Vitals: BP 136/70 Pulse 85 Temp 37.1 C (98.7 F) Resp 18 Ht 1.778 m (5' 10) Wt 60.8 kg (134 lb) SpO2 100% BMI 19.23 kg/m BLOOD PRESSURE RANGE: Systolic (24hrs), Av , Min:134 , Max:162 ; Diastolic (24hrs), Av, Min:56, Max:101 24HR INTAKE/OUTPUT: No intake or output data in the 24 hours ending 03/03/25 1259 Physical exam: Constitutional: NAD Cardiovascular: Normal S1, S2 without m/r/g Respiratory: CTAB without w/r/r Abdomen: +bs, soft, nt, nd Ext: no lower extremity edema Data: Labs: Recent Labs 03/01/25 0003 03/02/25 0004 03/03/25 0212 WBC 7.5 7.4 8.9 HGB 8.0* 7.7* 8.3* HCT 26.9* 25.4* 27.8* MCV 96.8 98.1 98.9 PLT 306 354 397 Recent Labs 03/01/25 0003 03/02/25 0004 03/03/25 0212 NA 138 139 140 K 5.8* 4.6 6.2* CL 102 102 101 CO2 23 26 28 GLUCOSE 87 107* 93 CALCIUM 9.6 9.2 9.8 BUN 28* 16 26* CREATININE 3.73* 2.53* 3.21* Assessment and Plan: 59 y.o. 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 Patient recently admitted to this facility 01/19 for accidental removal of tracheostomy, patient also was treated for GI bleed at that time now back on anticoags. Pt presents to ER for hemoptysis. Nephrology consultedf or ESRD management. ESRD on T TS HD - we will keep the patient in TTS. - L AVF - seen on HD Volume. - Bp acceptable - UF as tolerated with HD Electrolytes : Hyperkalemia Adjustment and stabilization with HD low k diet Anemia in CKD. 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 male admitted on 02/20/2025 for Hemoptysis [R04.2]. Medical History[1] Patient is on warfarin for mechanical AVR and has a goal INR 2.0 - 3.0. Patient was referred to [facility], but so far has been managed at facilities, most recently [facility]. Pt's home dose of warfarin is 1.5mg daily except 2.5mg on MWF. Pt's last INR at the facility was 1.4 on 02/20. S/sx of bleeding= admitted with hemoptysis, hgb 7.7 today. Bruising noted on physical exam (wound care notes). Interacting medications= heparin drip ongoing Labs: Recent Labs 03/01/25 0003 03/02/25 0004 03/03/25 0212 HGB 8.0* 7.7* 8.3* HCT 26.9* 25.4* 27.8* PLT 306 354 397 Recent Labs 03/03/25 0212 INR 1.6* Date INR Dose 6/8 1.5 7.5 mg 6/7 1.6 6 mg 6/6 1.4 5mg 6/5 1.4 4mg 6/4 1.3 3mg 6/3 1.3 2mg 6/2 1.3 1.5mg 6/ 1.3 1 mg 02/24 1.3 1 mg 02/23 1.3 HOLD 02/22 1.4 Held 02/21 --- Held 02/20 1.4 Held Assessment/Plan: 1. INR is subtherapeutic. Patient has been very sensitive to warfarin in the past, with significant history of bleeding (had GIB recently), history of ICH in September 2024, and presentation this admission of hemoptysis. Since INR is now trending down after slowly titrating warfarin dose upwards will increase dose further to 7.5 mg today. 2. Monitor for s/s of bleeding and drug interactions. Will adjust dose accordingly. 3. Will facilitate [facility] follow-up upon discharge. Likely will return to facility initially where they will manage warfarin, and [facility] will take over when discharged from facility. Adalberto Deleon PharmD [facility] Consult Service is available daily [phone] via [employer] Secure Chat. [1] Past Medical History: Diagnosis Date Acute renal failure (ARF) (HCC) 10/19/2019 Anemia 12/30/2021 Calcification of abdominal aorta ([facility]) 10/08/202309/[address] abd Diverticulosis 10/08/2023 ESRD on hemodialysis ([facility] [facility]) ([facility]) 10/26/2019 Hemodialysis patient ([facility] ([facility]) HTN (hypertension) 12/01/2022 Hypertension IgA nephropathy 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 10/26/2019 Missed vaccination due to patient refusal 10/08/2023 Has a number of non-scientific based beliefs which interfere with his understanding and acceptance of the medical benefit of vaccination. Nonrheumatic aortic valve stenosis 10/08/2023 Paroxysmal A-fib ([facility]) ([facility]) 08/18/2023 Tobacco abuse 10/08/2023 Hospitalist Progress Note - [facility] - [facility] ([facility] 03/03/2025 8:37 AM [phone]: Please page me for patient care issues. [phone]: Please page [facility] Hospitalist - [facility] for any issues. Subjective and Objective: Admit Date: 02/20/2025 PCP: Leilani Troncoso Chief Complaint Patient presents with Coughing Up Blood Pt arrives via EMS due to coughing up blood. This began around 1200 today while he was at dialysis. Pt endorses nausea, but denies any related abdominal pain. 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 Adult diet Regular Dietary Orders (From admission, onward) Start Ordered 02/27/25 1254 Supplement:Breakfast, Dinner; Nepro w/CARB Steady Until discontinued Question Answer Comment Frequency Breakfast Frequency Dinner Select supplement: Nepro w/CARB Steady 02/27/25 1254 02/21/25 1021 Adult diet Regular Diet effective now Question: Diet type Answer: Regular 02/21/25 1021 I/O last 3 completed shifts: In: - (0 mL/kg) Out: 25 (0.4 mL/kg) [Drains:25] Weight: 60.8 kg @IODETAILS@ @[id number]@ Medications: Continuous Meds[1] Scheduled Meds[2] Recent Labs 03/01/25 0003 03/02/25 0004 03/03/25 0212 WBC 7.5 7.4 8.9 HGB 8.0* 7.7* 8.3* PLT 306 354 397 Recent Labs 03/01/25 0003 03/02/25 0004 03/03/25 021 NA 138 139 140 K 5.8* 4.6 6.2* CL 102 102 101 CO2 23 26 28 BUN 28* 16 26* CREATININE 3.73* 2.53* 3.21* GLUCOSE 87 107* 93 No results for input(s): AST, ALT, BILITOT, ALKPHOS in the last 72 hours. No lab exists for component: ALB No results found for: TRIG, HDL, LDLCALC, CHOL No results found for: PHART, PO2ART, [id number] Recent Labs 03/01/25 0003 03/02/25 0004 03/03/25 021 INR 1.4* 1.4* 1.6* No results for input(s): CKTOTAL, CKMB, TROPONINI in the last 72 hours. No results for input(s): DDIMER in the last 72 hours. No results found for: HGBA1C No results found for: TSH Urine Culture: No results found for this or any previous visit. Objective: Vitals: BP 140/80 (BP Location: Right arm, Patient Position: Lying) Pulse 86 Temp 36.4 C (97.5 F) (Temporal) Resp 20 Ht 5' 10 (1.778 m) Wt 134 lb (60.8 kg) SpO2 98% BMI 19.23 kg/m Pulse Ox: SpO2 Av.6 % Min: 93 % Max: 100 % Supplemental O2: Past 24 hours events: seen in first bay in dialysis unit GENERAL: alert without acute distress CARDIOVASCULAR: no rubs, no palpitations RESPIRATORY: no crackles, not using accessory muscles ABDOMEN: soft, no acute abd pain EXTREMITIES: no edema ANATOMY/TUBES/LINES: left arm fistula Running Summary, Assessment, and Plan Jair is a 59 year old male with PMH below who presented with Chief Complaint of Hemoptysis. Chest CTA showed Diffuse, multifocal opacities and possible infiltrates, with peripheral distribution and internal bronchograms versus partial cavitation, which may represent nonspecific infectious or inflammatory process and pneumonitis. Started on IV antibiotics. Admitted for further evaluation and management. Started on IV heparin and home Coumadin held. Seen by Nephro for dialysis needs. Pulm seen for hemoptysis. Gen surg seen for patient request to remove PEG, done 02/23. ID seen for infection, recommended switch to augmentin 500mg q24 (to be taken after HD on HD days) until 03/10/25. Re-started home Coumadin while bridging with IV Heparin. Course was delayed due to prolonged time to therapeutic INR with history if GI bleed and intracranial hemorrhage requiring slow up-titrating. Acute, acute on chronic, unstable/uncontrolled chronic problems/diagnoses: Hemoptysis in the setting of bilateral cavitary lesion Klebsiella pneumonia with lung abscess Sacral wound Chronic anticoagulation due to mechanical valve replacement along with history of A-fib, Goal INR 2-3 ESRD on dialysis Severe malnutrition Hyperkalemia IGA nephropathy Subtherapeutic INR Endocarditis ruled out Stable chronic problems affecting care, new non-acute diagnoses: CAD s/p prior CABG HTN Intracranial hemorrhage As a result of the above findings & factors, the following mgmt was pursued: - IV Zosyn, discharge planning: switch to augmentin 500mg q24 (to be taken after HD on HD days) until 03/10/25 - IV Heparin bridge with Coumadin, daily INRs, 1.6 today - HR 86 with BP 140/80 today - Sill discharge over weekend if INR is appropriate - am labs, replace lytes prn - PT/OT/CM/SW as appropriate - delirium precautions: limit night-time awakening - DVT prophylaxis: IV Heparin, dc when INR 1.8 or higher Complexity: Acute illness or injury posing a threat to life or body function (HIGH). Risk: Admission to hospital-level care was considered or occurred (HIGH). Advance Directive: Full Anticipated Discharge - Date - 03/04 - Location - SNF ([facility]) - Pending the following - INR 1.8, dispo, Oxy script already prepped on chart Total time spent (which include face to face and non face to face encounters) in minutes: 51 Toxic drug monitoring/narrow therapeutic index drug monitoring : # Drug name : Coumadin # Route administered : oral # Method of monitoring : INR and monitoring for bleeding Extended Emergency Contact Information Primary Emergency Contact: Omar Snyder Mobile Relation: Child Secondary Emergency Contact: Toma Mcneil Mobile Relation: Partner Anthony Hurtado DO Division of Hospitalist Medicine Inpatient Medical Services[place] [1] heparin, 5-30 Units/kg/hr, Last Rate: 20 Units/kg/hr (03/03/25 0707) [2] B complex-vitamin C-folic acid, 1 capsule, Oral, Daily metoprolol tartrate, 25 mg, Oral, BID pantoprazole, 40 mg, Oral, BID AC piperacillin-tazobactam, 2,250 mg, IntraVENous, q6h QUEtiapine, 25 mg, Oral, Nightly sevelamer carbonate, 800 mg, Oral, TID WC sodium zirconium cyclosilicate, 5 g, Oral, Daily Nephrology Progress Note Following for ESRD seen in room tolerated HD yesterday no complaints today Current Inpatient Medications: Reviewed on NOV. Vitals: BP 154/86 (BP Location: Right arm, Patient Position: Lying) Pulse 89 Temp 36.5 C (97.7 F) (Temporal) Resp 16 Ht 1.778 m (5' 10) Wt 60.8 kg (134 lb) SpO2 100% BMI 19.23 kg/m BLOOD PRESSURE RANGE: Systolic (24hrs), Av , Min:132 , Max:158 ; Diastolic (24hrs), Av, Min:75, Max:94 24HR INTAKE/OUTPUT: Intake/Output Summary (Last 24 hours) at 03/02/2025 0835 Last data filed at 03/02/2025 0639 Gross per 24 hour Intake 300 ml Output 25 ml Net 275 ml Physical exam: Constitutional: NAD Cardiovascular: Normal S1, S2 without m/r/g Respiratory: CTAB without w/r/r Abdomen: +bs, soft, nt, nd Ext: no lower extremity edema Data: Labs: Recent Labs 02/28/25 0004 03/01/25 0003 03/02/25 0004 WBC 8.0 7.5 7.4 HGB 8.2* 8.0* 7.7* HCT 26.9* 26.9* 25.4* MCV 96.1 96.8 98.1 PLT 324 306 354 Recent Labs 02/28/25 0004 03/01/25 0003 03/02/25 0004 NA 138 138 139 K 5.0 5.8* 4.6 CL 100 102 102 CO2 27 23 26 GLUCOSE 94 87 107* CALCIUM 9.3 9.6 9.2 BUN 19 28* 16 CREATININE 3.06* 3.73* 2.53* Assessment and Plan: 59 y.o. 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 Patient recently admitted to this facility 01/19 for accidental removal of tracheostomy, patient also was treated for GI bleed at that time now back on anticoags. Pt presents to ER for hemoptysis. Nephrology consultedf or ESRD management. ESRD on T TS HD - we will keep the patient in TTS. - L AVF - seen on HD Volume. - Bp acceptable - UF as tolerated with HD Electrolytes Hyponatremia. Likely from poor solute intake - should improve with HD Hyperkalemia 58.8 today Adjustment and stabilization with HD low k diet Anemia in CKD. 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 Feel free to reach out with any questions or concerns Bree Molina APRN [employer] SALES ENGINEER A-G CASTING COORDINATOR [facility] [place] [phone] Pt seen and examined independently by me. I reviewed with FUEL CELL ENGINEER-[employer] SALES ENGINEER the medical history and the findings on physical examination. I discussed the patient s diagnosis and concur with the treatment plan as documented in his note. Please call [phone] or message me through [employer] with any questions or concerns. Hospitalist Progress Note - [facility] - [facility] [place] 03/02/2025 8:20 AM [phone]: Please page me for patient care issues. [phone]: Please page [facility] Hospitalist - [facility] for any issues. Subjective and Objective: Admit Date: 02/20/2025 PCP: Leilani Troncoso Chief Complaint Patient presents with Coughing Up Blood Pt arrives via EMS due to coughing up blood. This began around 1200 today while he was at dialysis. Pt endorses nausea, but denies any related abdominal pain. 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 Adult diet Regular Dietary Orders (From admission, onward) Start Ordered 02/27/25 1254 Supplement:Breakfast, Dinner; Nepro w/CARB Steady Until discontinued Question Answer Comment Frequency Breakfast Frequency Dinner Select supplement: Nepro w/CARB Steady 02/27/25 1254 02/21/25 1021 Adult diet Regular Diet effective now Question: Diet type Answer: Regular 02/21/25 1021 I/O last 3 completed shifts: In: 300 (4.9 mL/kg) [I.V.:300 (4.9 mL/kg)] Out: 40 (0.7 mL/kg) [Drains:40] Weight: 60.8 kg @IODETAILS@ @[id number]@ Medications: Continuous Meds[1] Scheduled Meds[2] Recent Labs 02/28/25 0004 03/01/25 0003 03/02/25 0004 WBC 8.0 7.5 7.4 HGB 8.2* 8.0* 7.7* PLT 324 306 354 Recent Labs 02/28/25 0004 03/01/25 0003 03/02/25 0004 NA 138 138 139 K 5.0 5.8* 4.6 CL 100 102 102 CO2 27 23 26 BUN 19 28* 16 CREATININE 3.06* 3.73* 2.53* GLUCOSE 94 87 107* No results for input(s): AST, ALT, BILITOT, ALKPHOS in the last 72 hours. No lab exists for component: ALB No results found for: TRIG, HDL, LDLCALC, CHOL No results found for: PHART, PO2ART, [id number] Recent Labs 02/28/25 0004 03/01/25 0003 03/02/25 0004 INR 1.3* 1.4* 1.4* No results for input(s): CKTOTAL, CKMB, TROPONINI in the last 72 hours. No results for input(s): DDIMER in the last 72 hours. No results found for: HGBA1C No results found for: TSH Urine Culture: No results found for this or any previous visit. Objective: Vitals: BP 154/86 (BP Location: Right arm, Patient Position: Lying) Pulse 89 Temp 36.5 C (97.7 F) (Temporal) Resp 16 Ht 5' 10 (1.778 m) Wt 134 lb (60.8 kg) SpO2 100% BMI 19.23 kg/m Pulse Ox: SpO2 Av % Min: 95 % Max: 100 % Supplemental O2: Past 24 hours events: GENERAL: appears comfortable and stated age CARDIOVASCULAR: regular RESPIRATORY: clear without rhonchi ABDOMEN: non distended EXTREMITIES: moving appropriately ANATOMY/TUBES/LINES: left arm fistula Running Summary, Assessment, and Plan Jair is a 59 year old male with PMH below who presented with Chief Complaint of Hemoptysis. Chest CTA showed Diffuse, multifocal opacities and possible infiltrates, with peripheral distribution and internal bronchograms versus partial cavitation, which may represent nonspecific infectious or inflammatory process and pneumonitis. Started on IV antibiotics. Admitted for further evaluation and management. Started on IV heparin and home Coumadin held. Seen by Nephro for dialysis needs. Pulm seen for hemoptysis. Gen surg seen for patient request to remove PEG, done 02/23. ID seen for infection, recommended switch to augmentin 500mg q24 (to be taken after HD on HD days) until 03/10/25. Re-started home Coumadin while bridging with IV Heparin. Course was delayed due to prolonged time to therapeutic INR with history if GI bleed and intracranial hemorrhage requiring slow up-titrating. Acute, acute on chronic, unstable/uncontrolled chronic problems/diagnoses: Hemoptysis in the setting of bilateral cavitary lesion Klebsiella pneumonia with lung abscess Sacral wound Chronic anticoagulation due to mechanical valve replacement along with history of A-fib, Goal INR 2-3 ESRD on dialysis Severe malnutrition Hyperkalemia IGA nephropathy Subtherapeutic INR Endocarditis ruled out Stable chronic problems affecting care, new non-acute diagnoses: CAD s/p prior CABG HTN Intracranial hemorrhage As a result of the above findings & factors, the following mgmt was pursued: - IV Zosyn, discharge planning: switch to augmentin 500mg q24 (to be taken after HD on HD days) until 03/10/25 - IV Heparin bridge with Coumadin, daily INRs, 1.4 again today - HR 89 with BP 154/86 today - Auth good thru Wednesday, will still discharge over weekend if INR is appropriate - am labs, replace lytes prn - PT/OT/CM/SW as appropriate - delirium precautions: limit night-time awakening - DVT prophylaxis: IV Heparin, dc when INR 1.8 or higher Complexity: Acute illness or injury posing a threat to life or body function (HIGH). Risk: Admission to hospital-level care was considered or occurred (HIGH). Advance Directive: Full Anticipated Discharge - Date - 03/03 - Location - [facility] ([facility]) - Pending the following - INR 1.8, dispo, Oxy script already prepped on chart Total time spent (which include face to face and non face to face encounters) in minutes: 52 Toxic drug monitoring/narrow therapeutic index drug monitoring : # Drug name : Coumadin # Route administered : oral # Method of monitoring : INR and monitoring for bleeding Extended Emergency Contact Information Primary Emergency Contact: Omar Snyder Mobile Relation: Child Secondary Emergency Contact: Toma Mcneil Mobile Relation: Partner Anthony Hurtado DO Division of Hospitalist Medicine [facility]patient Medical Services[place] [place]1] heparin, 5-30 Units/kg/hr, Last Rate: 19 Units/kg/hr (03/02/25 0813) [2] B complex-vitamin C-folic acid, 1 capsule, Oral, Daily metoprolol tartrate, 25 mg, Oral, BID pantoprazole, 40 mg, Oral, BID AC piperacillin-tazobactam, 2,250 mg, IntraVENous, q6h QUEtiapine, 25 mg, Oral, Nightly sevelamer carbonate, 800 mg, Oral, TID WC warfarin, 5 mg, Oral, Once [facility] Anticoagulation Management Service ([facility]) Inpatient Warfarin Consult HPI: Jun Snyder is a 59 y.o. male admitted on 02/20/2025 for Hemoptysis [R04.2]. Medical History[1] Patient is on warfarin for mechanical AVR and has a goal INR 2.0 - 3.0. Patient was referred to [facility], but so far has been managed at facilities, most recently [facility]. Pt's home dose of warfarin is 1.5mg daily except 2.5mg on MWF. Pt's last INR at the facility was 1.4 on 02/20. S/sx of bleeding= admitted with hemoptysis, hgb 7.7 today Interacting medications= heparin drip Labs: Recent Labs 02/28/25 0004 03/01/25 0003 03/02/25 0004 HGB 8.2* 8.0* 7.7* HCT 26.9* 26.9* 25.4* PLT 324 306 354 Recent Labs 03/02/25 0004 INR 1.4* Date INR Dose 03/01 1.4 5mg 03/01 1.4 4mg 02/28 1.3 3mg 02/27 1.3 2mg 02/26 1.3 1.5mg 02/25 1.3 1 mg 02/24 1.3 1 mg 02/23 1.3 HOLD 02/22 1.4 Held 02/21 --- Held 02/20 1.4 Held Assessment/Plan: 1. INR is subtherapeutic due to held doses and is increasing slowly despite higher doses. Patient has been very sensitive to warfarin in the past, with significant history of bleeding (had GIB recently), history of ICH in September 2024, and presentation this admission of hemoptysis. Since INR is increasing slowly, will further increase warfarin dose to 5mg today. 2. Monitor for s/s of bleeding and drug interactions. Will adjust dose accordingly. 3. Will facilitate [facility] follow-up upon discharge. Likely will return to facility initially where they will manage warfarin, and [facility] will take over when discharged from facility. Fatuma Odonnell [facility] Consult Service is available daily [phone] via [employer] Secure Chat. [1] Past Medical History: Diagnosis Date Acute renal failure (ARF) (HCC) 10/19/2019 Anemia 12/30/2021 Calcification of abdominal aorta ([facility]) 10/08/202309/[address] abd Diverticulosis 10/08/2023 ESRD on hemodialysis ([facility]) ([facility]) 10/26/2019 Hemodialysis patient ([facility]) ([facility]) HTN (hypertension) 12/01/2022 Hypertension IgA nephropathy 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 10/26/2019 Missed vaccination due to patient refusal 10/08/2023 Has a number of non-scientific based beliefs which interfere with his understanding and acceptance of the medical benefit of vaccination. Nonrheumatic aortic valve stenosis 10/08/2023 Paroxysmal A-fib ([facility]) ([facility]) 08/18/2023 Tobacco abuse 10/08/2023 Images from the original note were not included. PHYSICAL THERAPY [facility] Treatment Note Name/MRN: Jair Snyder ([id number]) Date of : 1965 Age: 59 y.o. [facility] Discharge Recommendation: [facility] Facility Equipment Needed: No Assessment Good distance, gait tolerance. SpO2 96% after gait. Increased time for all activity, particular how things are completed. Rec skilled PT Subjective Reluctant but agree to PT. Pain: buttocks, toes left Medical Precautions: No active isolations Proper PPE donned/doffed in accordance with facility standards. Fall Risk: Roque Fall Risk Score: 80 (Low Risk) Roque Fall Risk Score: 80 (High Risk) Precautions/Restrictions: Lines/Drains/Airways: PIV, HD fistula LUE, wound vac sacrum Fall Precautions Overall Cognitive Status: alert, follows commands, redirection, increased time to complete all tasks, hyperfocused on his way of doing things Overall Orientation Status: Oriented x4 Family/Caregiver Present: none Objective Bed Mobility Supine to sit: Modified Independent Sit to supine: Modified Independent Rolling to left: Modified Independent Scooting: Modified Independent HOB Elevated Use of bed rail(s) Increased time to initiate/complete task Transfers/Mobility Sit to stand: Modified Independent Stand to sit: Modified Independent Low surface, educate UE placement, poor compliance with push off, increased time to complete/initiate Ambulation Ambulation 1 Assistive device(s) used: Front wheeled walker Assist level: Supervision Distance (ft): 160' Quality of gait: slow saida Balance: seated dynamic supervision, stance UE support supervision, extended for self care Plan Continue acute PT per plan of care. Safety/Education Safety Safety Devices in place: call light within reach, left in bed, gait belt, and nurse notified Restraints: No Education See above Outcome Measures AM-PAC AM-PAC Inpatient Mobility Raw Score (No Stairs) : 15 JH-HLM -HLM Score: Walked 25 ft or more (i.e. walked outside of room) Goals Patient Stated Goal: return to rehab Encounter Problems Encounter Problems (Active) Mobility Patient will ambulate 100 feet with supervision and rolling walker in order to improve safety and independence with mobility. (Adequate for Discharge) Start: 02/25/25 Expected End: 03/25/25 Transfers Patient will perform bed mobility with modified independence in order to improve independence and prepare for out of bed mobility. (Adequate for Discharge) Start: 02/25/25 Expected End: 03/25/25 Patient will complete functional transfer with rolling walker with modified independence in order to prepare for ambulation. (Adequate for Discharge) Start: 02/25/25 Expected End: 03/25/25 Therapy Time Individual Co-treatment Time In 1530 Time Out 1600 Minutes 30 Timed Code Treatment Minutes: (gt-fa) Merlene León PTA Cosigned by Anthony Black PT at 03/01/2025 4:34 PM EDT Associated attestation - Anthony Black PT - 03/01/2025 4:34 PM EDT Did not have opportunity today to speak to SHADOWGRAPH OPERATOR re: recommendation. Mobility appears to be consistent with homegoing, but know that medical conditions and other factors clearly could influence recommendations. Images from the original note were not included. OCCUPATIONAL THERAPY [facility] Treatment Note Name/MRN: Jair Snyder ([id number]) Date of : 1965 Age: 59 y.o. Room/Bed: W3-334/W3-334 A Discharge Recommendation: Jail Facility Other: DME TBD at next level of care Assessment Pt tolerated OT session well, demo's bed mobility with Min A overall, Min A for transfer at EOB and mobility with FWW at EOB, Max A for LE dressing seated due to pain at R hip with wound vac, Min A for clothing management standing at EOB, SBA for grooming task. Pt is limited by decreased strength, endurance, activity tolerance, impacting ADL performance. Pt is recommended for SNF for planned discharge. Subjective Pt in bed, agreeable to OT session this afternoon. Had HD this AM. Pt very particular with placement of lines and blankets on bed. Pain: RN managing pain. Reports discomfort at R hip at wound vac, not numerically rated. Medical Precautions: No active isolations Proper PPE donned/doffed in accordance with facility standards. Fall Risk: Roque Fall Risk Score: 80 (Low Risk) Roque Fall Risk Score: 80 (High Risk) Precautions/Restrictions: Lines/Drains/Airways: PIV, HD fistula LUE, wound vac R hip Fall Precautions Family/Caregiver Present: none Objective ADLs LE Dressing: Min Assist, Max Assist Grooming: SBA Grooming SBA to wash face Max A for LE dressing socks, Min A in standing for clothing management of brief Bed Mobility Supine to sit: Min Assist Sit to supine: Min Assist Min A due to pt elevating head to sit upright, Min A to assist BLEs into bed. Transfers/Mobility Sit to stand: Min Assist Stand to sit: Min Assist Sitting balance: SBA Standing balance: Min Assist Functional mobility: Min Assist Short distance at EOB, marching in place progressing to sidestepping along EOB with FWW, fatigues with activity with pt requesting to sit post activity. Device(s) used: Front wheeled walker Cognition - Problem solving: assistance required to identify errors made and assistance required to correct errors made - Insights: decreased awareness of deficits - Initiation: requires cues for some -easily mildly agitated Plan Continue acute OT per plan of care. Safety/Education Safety Safety Devices in place: All fall risk precautions in place, call light within reach, left in bed, patient at risk for falls, nurse notified, and no alarms engaged upon entry Restraints: No Education Education Given To: patient Education Provided: OT Role, Plan of Care, and Discharge Recommendations Education Method: Verbal Barriers to Learning: None Education Outcome: Verbalized Understanding AM-PAC AM-PAC Inpatient Daily Activity Raw Score: 15 ADL Inpatient CMS G-Code Modifier: CK Goals Patient Stated Goal: wants to get better Encounter Problems Encounter Problems (Active) Balance Static standing balance during unilateral UE task x 2 mins with supervision. (Progressing) Start: 02/26/25 Expected End: 03/26/25 Dressings Lower Extremities LE dressing with use of AE prn with supervision. (Progressing) Start: 02/26/25 Expected End: 03/26/25 Transfers Toilet transfer with supervision. (Progressing) Start: 02/26/25 Expected End: 03/26/25 Therapy Time Individual Co-treatment Time In 1421 Time Out 1439 Minutes 18 Timed Code Treatment Minutes: 18 Minutes (x1 ADL) Ro Farnsworth OT Nephrology Progress Note Following for ESRD Py seen on HD bp stable Endorses citlali esob but resting flay comfortably No n/v or cramping Current Inpatient Medications: Reviewed on NOV. Vitals: BP 153/83 Pulse 87 Temp 37.6 C (99.7 F) Resp 16 Ht 1.778 m (5' 10) Wt 60.8 kg (134 lb) SpO2 99% BMI 19.23 kg/m BLOOD PRESSURE RANGE: Systolic (24hrs), Av , Min:131 , Max:158 ; Diastolic (24hrs), Av, Min:77, Max:94 24HR INTAKE/OUTPUT: No intake or output data in the 24 hours ending 03/01/25 1125 Physical exam: Constitutional: NAD Cardiovascular: Normal S1, S2 without m/r/g Respiratory: CTAB without w/r/r Abdomen: +bs, soft, nt, nd Ext: no lower extremity edema Data: Labs: Recent Labs 02/27/25 0010 02/28/25 0004 03/01/25 0003 WBC 7.9 8.0 7.5 HGB 8.6* 8.2* 8.0* HCT 28.8* 26.9* 26.9* MCV 96.0 96.1 96.8 PLT 302 324 306 Recent Labs 02/28/25 0004 03/01/25 0003 NA 138 138 K 5.0 5.8* CL 100 102 CO2 27 23 GLUCOSE 94 87 CALCIUM 9.3 9.6 BUN 19 28* CREATININE 3.06* 3.73* Assessment and Plan: 59 y.o. 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 Patient recently admitted to this facility 01/19 for accidental removal of tracheostomy, patient also was treated for GI bleed at that time now back on anticoags. Pt presents to ER for hemoptysis. Nephrology consultedf or ESRD management. ESRD on T TS HD - we will keep the patient in TTS. - L AVF - seen on HD Volume. - Bp acceptable - UF as tolerated with HD Electrolytes Hyponatremia. Likely from poor solute intake - should improve with HD Hyperkalemia 58.8 today Adjustment and stabilization with HD low k diet Anemia in CKD. 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 Feel free to reach out with any questions or concerns Bree Molina APRN [employer] ENGINEER A-G CASTING COORDINATOR [facility] [place] [phone] Pt seen and examined independently by me. I reviewed with Jun Maki, the medical history and the findings on physical examination. I discussed the patient s diagnosis and concur with the treatment plan as documented in his note. Please call [phone] or message me through [employer] with any questions or concerns. Hospitalist Progress Note - [facility] [place] 03/01/2025 9:51 AM [phone]: Please page me for patient care issues. [phone]: Please page [facility] Hospitalist - [facility] for any issues. Subjective and Objective: Admit Date: 02/20/2025 PCP: Leilani Troncoso Chief Complaint Patient presents with Coughing Up Blood Pt arrives via EMS due to coughing up blood. This began around 1200 today while he was at dialysis. Pt endorses nausea, but denies any related abdominal pain. 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 Adult diet Regular Dietary Orders (From admission, onward) Start Ordered 02/27/25 1254 Supplement:Breakfast, Dinner; Nepro w/CARB Steady Until discontinued Question Answer Comment Frequency Breakfast Frequency Dinner Select supplement: Nepro w/CARB Steady 02/27/25 1254 02/21/25 1021 Adult diet Regular Diet effective now Question: Diet type Answer: Regular 02/21/25 1021 No intake/output data recorded. @[email or web address]@ @[email or web address]@ Medications: Continuous Meds[1] Scheduled Meds[2] Recent Labs 02/27/25 0010 02/28/25 0004 03/01/25 0003 WBC 7.9 8.0 7.5 HGB 8.6* 8.2* 8.0* PLT 302 324 306 Recent Labs 02/28/25 0004 03/01/25 0003 NA 138 138 K 5.0 5.8* CL 100 102 CO2 27 23 BUN 19 28* CREATININE 3.06* 3.73* GLUCOSE 94 87 No results for input(s): AST, ALT, BILITOT, ALKPHOS in the last 72 hours. No lab exists for component: ALB No results found for: TRIG, HDL, LDLCALC, CHOL No results found for: PHART, PO2ART, [id number] Recent Labs 02/27/25 0010 02/28/25 0004 03/01/25 0003 INR 1.3* 1.3* 1.4* No results for input(s): CKTOTAL, CKMB, TROPONINI in the last 72 hours. No results for input(s): DDIMER in the last 72 hours. No results found for: HGBA1C No results found for: TSH Urine Culture: No results found for this or any previous visit. Objective: Vitals: BP 150/85 Pulse 87 Temp 37.6 C (99.7 F) Resp 16 Ht 5' 10 (1.778 m) Wt 134 lb (60.8 kg) SpO2 99% BMI 19.23 kg/m Pulse Ox: SpO2 Av.2 % Min: 98 % Max: 100 % Supplemental O2: Past 24 hours events: patient continues to order uber delivered products to front entrance despite being told not to GENERAL: in bed without acute distress CARDIOVASCULAR: RRR no rubs RESPIRATORY: good breath sounds throughout ABDOMEN: non-tender, no acute abd pain EXTREMITIES: no open wounds ANATOMY/TUBES/LINES: left arm fistula Running Summary, Assessment, and Plan Jair is a 59 year old male with PMH below who presented with Chief Complaint of Hemoptysis. Chest CTA showed Diffuse, multifocal opacities and possible infiltrates, with peripheral distribution and internal bronchograms versus partial cavitation, which may represent nonspecific infectious or inflammatory process and pneumonitis. Started on IV antibiotics. Admitted for further evaluation and management. Started on IV heparin and home Coumadin held. Seen by Nephro for dialysis needs. Pulm seen for hemoptysis. Gen surg seen for patient request to remove PEG, done 02/23. ID seen for infection, recommended switch to augmentin 500mg q24 (to be taken after HD on HD days) until 03/10/25. Re-started home Coumadin while bridging with IV Heparin. Course was delayed due to prolonged time to therapeutic INR with history if GI bleed and intracranial hemorrhage requiring slow up-titrating. Acute, acute on chronic, unstable/uncontrolled chronic problems/diagnoses: Hemoptysis in the setting of bilateral cavitary lesion Klebsiella pneumonia with lung abscess Sacral wound Chronic anticoagulation due to mechanical valve replacement along with history of A-fib, Goal INR 2-3 ESRD on dialysis Severe malnutrition Hyperkalemia IGA nephropathy Subtherapeutic INR Endocarditis ruled out Stable chronic problems affecting care, new non-acute diagnoses: CAD s/p prior CABG HTN Intracranial hemorrhage As a result of the above findings & factors, the following mgmt was pursued: - IV Zosyn, discharge planning: switch to augmentin 500mg q24 (to be taken after HD on HD days) until 03/10/25 - IV Heparin bridge with Coumadin, daily INRs, 1.4 today - HR 87 with BP 150/85 today - Auth good thru Wednesday - am labs, replace lytes prn - PT/OT/CM/SW as appropriate - delirium precautions: limit night-time awakening - DVT prophylaxis: IV Heparin, dc when INR 1.8 or higher Complexity: Acute illness or injury posing a threat to life or body function (HIGH). Risk: Admission to hospital-level care was considered or occurred (HIGH). Advance Directive: Full Anticipated Discharge - Date - 03/01 - 03/02 - Location - SNF ([facility]) - Pending the following - INR 1.8, dispo, Oxy script already prepped on chart Total time spent (which include face to face and non face to face encounters) in minutes: 53 Toxic drug monitoring/narrow therapeutic index drug monitoring : # Drug name : Coumadin # Route administered : oral # Method of monitoring : INR and monitoring for bleeding Extended Emergency Contact Information Primary Emergency Contact: Omar Snyder Mobile Relation: Child Secondary Emergency Contact: TarunToma Mobile Relation: Partner Anthony Hurtado DO Division of Hospitalist Medicine Inpatient Medical Services[place] [1] heparin, 5-30 Units/kg/hr, Last Rate: 18 Units/kg/hr (03/01/25 0729) [2] B complex-vitamin C-folic acid, 1 capsule, Oral, Daily metoprolol tartrate, 25 mg, Oral, BID pantoprazole, 40 mg, Oral, BID AC piperacillin-tazobactam, 2,250 mg, IntraVENous, q6h QUEtiapine, 25 mg, Oral, Nightly sevelamer carbonate, 800 mg, Oral, TID WC warfarin, 4 mg, Oral, Once Images from the original note were not included. PHYSICAL THERAPY [facility] Name/MRN: Jair Rodas Lillian ([id number]) Date: 03/01/2025 Leaving for dialysis. Return later time/date for PT. Merlene León PTA Cosigned by Anthony Black, PT at 03/01/2025 8:42 AM EDT [facility] Anticoagulation Management Service ([facility]) Inpatient Warfarin Consult HPI: Jun Snyder is a 59 y.o. male admitted on 02/20/2025 for Hemoptysis [R04.2]. Medical History[1] Patient is on warfarin for mechanical AVR and has a goal INR 2.0 - 3.0. Patient was referred to [facility], but so far has been managed at facilities, most recently [facility]. Pt's home dose of warfarin is 1.5mg daily except 2.5mg on MWF. Pt's last INR at the facility was 1.4 on 02/20. S/sx of bleeding= admitted with hemoptysis, HGB 8.0 today Interacting medications= heparin drip Labs: Recent Labs 02/27/25 0010 02/28/25 0004 03/01/25 0003 HGB 8.6* 8.2* 8.0* HCT 28.8* 26.9* 26.9* PLT 302 324 306 Recent Labs 03/01/25 0003 INR 1.4* Date INR Dose 03/01 1.4 4mg 02/28 1.3 3mg 02/27 1.3 2mg 02/26 1.3 1.5mg 02/25 1.3 1 mg 02/24 1.3 1 mg 02/23 1.3 HOLD 02/22 1.4 Held 02/21 --- Held 02/20 1.4 Held Assessment/Plan: 1. INR is subtherapeutic due to held doses - increased overnight, but is increasing slowly. Patient has been very sensitive to warfarin in the past, with significant history of bleeding (had GIB recently), history of ICH in September 2024, and presentation this admission of hemoptysis. Since INR is increasing slowly, will further increase warfarin dose to 4mg today. 2. Monitor for s/s of bleeding and drug interactions. Will adjust dose accordingly. 3. Will facilitate [facility] follow-up upon discharge. Likely will return to facility initially where they will manage warfarin, and [facility] will take over when discharged from facility. Fatuma Odonnell RPh [facility] Consult Service is available daily [phone] via [employer] Secure Chat. [1] Past Medical History: Diagnosis Date Acute renal failure (ARF) ([facility]) 10/19/2019 Anemia 12/30/2021 Calcification of abdominal aorta ([facility]) 10/08/202309/[address] abd Diverticulosis 10/08/2023 ESRD on hemodialysis ([facility] [facility]) ([facility]) 10/26/2019 Hemodialysis patient ([facility]) ([facility]) HTN (hypertension) 12/01/2022 Hypertension IgA nephropathy 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 10/26/2019 Missed vaccination due to patient refusal 10/08/2023 Has a number of non-scientific based beliefs which interfere with his understanding and acceptance of the medical benefit of vaccination. Nonrheumatic aortic valve stenosis 10/08/2023 Paroxysmal A-fib ([facility]) ([facility]) 08/18/2023 Tobacco abuse 10/08/2023 Nephrology Progress Note Following for ESRD , pt seen in room States had some SOB but better Had HD yesterday Current Inpatient Medications: Reviewed on NOV. Vitals: BP 139/83 (BP Location: Right arm, Patient Position: Lying) Pulse 86 Temp 36.4 C (97.6 F) (Temporal) Resp 12 Ht 1.778 m (5' 10) Wt 60.8 kg (134 lb) SpO2 97% BMI 19.23 kg/m BLOOD PRESSURE RANGE: Systolic (24hrs), Av , Min:129 , Max:147 ; Diastolic (24hrs), Av, Min:59, Max:87 24HR INTAKE/OUTPUT: Intake/Output Summary (Last 24 hours) at 02/28/2025 1053 Last data filed at 02/28/2025 0701 Gross per 24 hour Intake 300 ml Output 0 ml Net 300 ml Physical exam: Constitutional: nadf Respiratory: CTAB without w/r/r Abdomen: +bs, soft, nt, nd Ext: no lower extremity edema Data: Labs: Recent Labs 02/27/25 0010 02/28/25 0004 WBC 7.9 8.0 HGB 8.6* 8.2* HCT 28.8* 26.9* MCV 96.0 96.1 PLT 302 324 Recent Labs 02/28/25 0004 NA 138 K 5.0 CL 100 CO2 27 GLUCOSE 94 CALCIUM 9.3 BUN 19 CREATININE 3.06* Assessment and Plan: 59 y.o. 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 Patient recently admitted to this facility 01/19 for accidental removal of tracheostomy, patient also was treated for GI bleed at that time now back on anticoags. Pt presents to ER for hemoptysis. Nephrology consultedf or ESRD management. ESRD on T TS HD - we will keep the patient in TTS. - L AVF Volume. - Bp acceptable - UF as tolerated with HD Electrolytes Hyponatremia. Likely from poor solute intake - should improve with HD Hypokalemia Adjustment and stabilization with HD Anemia in CKD. 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 Feel free to reach out with any questions or concerns Bree Molina APRN [employer] SALES ENGINEER A-G CASTING COORDINATOR [facility] [place] [phone] Pt seen and examined independently by me. I reviewed with FUEL CELL ENGINEER-CERAMIC PRODUCTS SALES ENGINEER the medical history and the findings on physical examination. I discussed the patient s diagnosis and concur with the treatment plan as documented in his note. Please call [phone] or message me through [employer] with any questions or concerns. Hospitalist Progress Note - [facility] [place] 02/28/2025 8:23 AM [id number]: Please page me for patient care issues. [id number]: Please page [facility] - [facility] for any issues. Subjective and Objective: Admit Date: 02/20/2025 PCP: Leilani Troncoso Chief Complaint Patient presents with Coughing Up Blood Pt arrives via EMS due to coughing up blood. This began around 1200 today while he was at dialysis. Pt endorses nausea, but denies any related abdominal pain. 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 Adult diet Regular Dietary Orders (From admission, onward) Start Ordered 02/27/25 1254 Supplement:Breakfast, Dinner; Nepro w/CARB Steady Until discontinued Question Answer Comment Frequency Breakfast Frequency Dinner Select supplement: Nepro w/CARB Steady 02/27/25 1254 02/21/25 1021 Adult diet Regular Diet effective now Question: Diet type Answer: Regular 02/21/25 1021 I/O last 3 completed shifts: In: 300 (4.9 mL/kg) [I.V.:300 (4.9 mL/kg)] Out: 450 (7.4 mL/kg) [Urine:450 (0.2 mL/kg/hr)] Weight: 60.8 kg @IODETAILS@ @[id number]@ Medications: Continuous Meds[1] Scheduled Meds[2] Recent Labs 02/27/25 0010 02/28/25 0004 WBC 7.9 8.0 HGB 8.6* 8.2* PLT 302 324 Recent Labs 02/28/25 0004 NA 138 K 5.0 CL 100 CO2 27 BUN 19 CREATININE 3.06* GLUCOSE 94 No results for input(s): AST, ALT, BILITOT, ALKPHOS in the last 72 hours. No lab exists for component: ALB No results found for: TRIG, HDL, LDLCALC, CHOL No results found for: PHART, PO2ART, HSE3KFC Recent Labs 02/25/25 2345 02/27/25 0010 02/28/25 0004 INR 1.3* 1.3* 1.3* No results for input(s): CKTOTAL, CKMB, TROPONINI in the last 72 hours. No results for input(s): DDIMER in the last 72 hours. No results found for: HGBA1C No results found for: TSH Urine Culture: No results found for this or any previous visit. Objective: Vitals: BP 132/80 (BP Location: Right arm, Patient Position: Lying) Pulse 91 Temp 36.3 C (97.4 F) (Temporal) Resp 18 Ht 5' 10 (1.778 m) Wt 134 lb (60.8 kg) SpO2 98% BMI 19.23 kg/m Pulse Ox: SpO2 Av.6 % Min: 96 % Max: 100 % Supplemental O2: Past 24 hours events: GENERAL: calm, no complaints CARDIOVASCULAR: no palpitations, regular RESPIRATORY: no rhonchi or crackles ABDOMEN: non-distended EXTREMITIES: moving spontaneously ANATOMY/TUBES/LINES: left arm fistula Running Summary, Assessment, and Plan Jari is a 59 year old male with PMH below who presented with Chief Complaint of Hemoptysis. Chest CTA showed Diffuse, multifocal opacities and possible infiltrates, with peripheral distribution and internal bronchograms versus partial cavitation, which may represent nonspecific infectious or inflammatory process and pneumonitis. Started on IV antibiotics. Admitted for further evaluation and management. Started on IV heparin and home Coumadin held. Seen by Nephro for dialysis needs. Pulm seen for hemoptysis. Gen surg seen for patient request to remove PEG, done 02/23. ID seen for infection, recommended switch to augmentin 500mg q24 (to be taken after HD on HD days) until 03/10/25. Re-started home Coumadin while bridging with IV Heparin. Course was delayed due to prolonged time to therapeutic INR with history if GI bleed and intracranial hemorrhage requiring slow up-titrating. Acute, acute on chronic, unstable/uncontrolled chronic problems/diagnoses: Hemoptysis in the setting of bilateral cavitary lesion Klebsiella pneumonia with lung abscess Sacral wound Chronic anticoagulation due to mechanical valve replacement along with history of A-fib, Goal INR 2-3 ESRD on dialysis Severe malnutrition IGA nephropathy Subtherapeutic INR Endocarditis ruled out Stable chronic problems affecting care, new non-acute diagnoses: CAD s/p prior CABG HTN Intracranial hemorrhage As a result of the above findings & factors, the following mgmt was pursued: - IV Zosyn, discharge planning: switch to augmentin 500mg q24 (to be taken after HD on HD days) until 03/10/25 - IV Heparin bridge with Coumadin, daily INRs - HR 91 with BP 132/80 today - Auth good thru Wednesday - am labs, replace lytes prn - PT/OT/CM/SW as appropriate - delirium precautions: limit night-time awakening - DVT prophylaxis: IV Heparin, dc when INR 2.0 or higher Complexity: Acute illness or injury posing a threat to life or body function (HIGH). Risk: Admission to hospital-level care was considered or occurred (HIGH). Advance Directive: Full Anticipated Discharge - Date - 03/01 - 03/02 - Location - SNF ([facility]) - Pending the following - INR 2.0, dispo Total time spent (which include face to face and non face to face encounters) in minutes: 52 Toxic drug monitoring/narrow therapeutic index drug monitoring : # Drug name : Coumadin # Route administered : oral # Method of monitoring : INR and monitoring for bleeding Extended Emergency Contact Information Primary Emergency Contact: Omar Snyder Mobile Relation: Child Secondary Emergency Contact: Toma Mcneil Mobile Relation: Partner Anthony Hurtado DO Division of Hospitalist Medicine Inpatient Medical Services[place] [1] heparin, 5-30 Units/kg/hr, Last Rate: 18 Units/kg/hr (02/28/25 0714) [2] B complex-vitamin C-folic acid, 1 capsule, Oral, Daily metoprolol tartrate, 25 mg, Oral, BID pantoprazole, 40 mg, Oral, qAM AC piperacillin-tazobactam, 4,500 mg, IntraVENous, q8h QUEtiapine, 25 mg, Oral, Nightly sevelamer carbonate, 800 mg, Oral, TID WC warfarin, 3 mg, Oral, Once Images from the original note were not included. [facility] Wound Care/NPWT Progress Note Jun Snyder AGE: 59 y.o. GENDER: male : 1965 Subjective: HISTORY of PRESENT ILLNESS HPI Jun Snyder is a 59 y.o. male who presents for a wound care follow up and NPWT application. HPI: 59 y.o. who presents to the emergency department with chief complaint of hemoptysis. Patient was at dialysis today when he started to cough and they noticed he was bringing up pieces of blood. States that it was bright red in the size of a $0.50 piece. Admitted for hemoptysis. Patient with recent admission and discharge and is known to wound care service. Wound Care consulted for multiple wounds. Patient resting in bed. Wound vac dressing changed at time of visit with patient tolerating well. Denies any needs. PAST MEDICAL HISTORY Medical History[1] PAST SURGICAL HISTORY Surgical History[2] FAMILY HISTORY Family History[3] SOCIAL HISTORY Social History[4] ALLERGIES Allergies[5] MEDICATIONS Medications Ordered Prior to Encounter[6] REVIEW OF SYSTEMS Pertinent items are noted in HPI. Objective: BP 139/83 (BP Location: Right arm, Patient Position: Lying) Pulse 86 Temp 36.4 C (97.6 F) (Temporal) Resp 12 Ht 1.778 m (5' 10) Wt 60.8 kg (134 lb) SpO2 97% BMI 19.23 kg/m PHYSICAL EXAM General appearance: in no apparent distress, in no respiratory distress and acyanotic, alert, cooperative, and moderately ill, frail and thin appearing Skin: warm and dry Pulmonary: Normal effort, no respiratory distress, no cyanosis Abdomen: soft, nontender, and nondistended Extremities: warm and dry, Palpable DP pulse present +2 Left toes - digits 1-4 - dry gangrene noted with clear demarcation, no odor, no drainage, no sign of infection. Stable Left 5th toe - 0.5x0.5xUTDcm. dry gangrene, no odor, no drainage. Mahnaz-wound intact. Stable 02/28/25 Left plantar heel - 1.0 x 1.0 x utd(cm) - wound bed with with dry eschar, no drainage, mahnaz wound tissue intact 02/28/25 Right wrist - no opened areas. Fading bruising noted. No drainage. 02/28/25 Sacrum: Focused assessment on sacral wound VAC dressing change. Patient premedicated for pain with pain medication, per chief of staff, prior to wound VAC dressing change. Wet to dry dressing removed from wound bed with saline without any difficulties. Moderate amount of serosang drainage noted from wound. No purulence, bleeding or odor. All wounds and periwounds cleansed with saline, patted dry and cavilon no sting applied to periwound. Patient's full thickness wound measuring 6 x 4 x 1.5 cm with circumferential undermining at 1.5cm. Wound bed with pink granulation tissue and structure noted to right side of wound bed. Applied 1 piece of black foam with bridge to right hip. Non-disposable Wound VAC well sealed at 125 mmHg continuous suction. 02/28/25 LABS CBC: Lab Results Component Value Date WBC 8.0 02/28/2025 HGB 8.2 (L) 02/28/2025 HCT 26.9 (L) 02/28/2025 MCV 96.1 02/28/2025 PLT 324 02/28/2025 BMP: Lab Results Component Value Date NA 138 02/28/2025 K 5.0 02/28/2025 CL 100 02/28/2025 CO2 27 02/28/2025 BUN 19 02/28/2025 CREATININE 3.06 (H) 02/28/2025 PT/INR: Lab Results Component Value Date PROTIME 14.0 (H) 02/28/2025 INR 1.3 (H) 02/28/2025 Prealbumin: No results found for: PREALBUMIN Albumin:No components found for: LABALBU Sed Rate:No results found for: SEDRATE Micro: No components found for: BC Assessment/Plan: Nursing staff to perform dressing change: Left toes 1-5: Arterial Ulcer (Unknown) -cleanse with NS, apply Betadine and allow to dry, leave CORPORATE FINANCIAL ANALYST daily and PRN Left plantar heel - unstageable pressure injury (POA): -cleanse with NS, apply Betadine and allow to dry, leave TISHA daily and PRN Right wrist Abrasion: -cleanse with antibacterial soap/water, leave TISHA daily Sacral Stage 4 pressure injury (POA): - Next change 02/26/25 - Clean with NS, apply Vac. Place black foam to wound bed at 125mmHg continuous, change 3 times a week and PRN - Change cannister once a week or when full. - If suction fails: - remove vac dressing - cleanse wound with normal saline - pack wound with saline moistened gauze and change every 12 hours -resting on Turing Dataa Pro + bed at time of visit -waffle chair cushion if up in chair -Q2hr/PRN turns -glide sheets for T&R -continence checks Q1-2 Hrs/PRN Nutritional support Wound Care to follow Recommend to follow up at [facility] Outpatient wound care center after hospital discharge. Any questions or concerns please secure chat [facility] wound/ostomy. Thank you for the consult! I personally obtained the francis and critical portions of the history and physical exam. I reviewed the labs, imaging studies, and electronic medical record. I reviewed the chart documentation and discussed the patient with treatment team members. I have edited the note to reflect my clinical findings and my assessment and plan. Please note, the time of this note does not reflect the time I saw this patient today, but the time of this documentaton. Portions of this note including HPI, ROS, impression/plan, and examination may have been copied forward from admission to today as to provide important historical information essential in contributing to medical decision making. Documentation has been reviewed and edited as necessary to support clinical decision making for today's visit and to reflect my own independent evaluation of this patient. Decision making for today's visit and to reflect my own independent evaluation of this patient. [1] Past Medical History: Diagnosis Date Acute renal failure (ARF) ([facility]) 10/19/2019 Anemia 12/30/2021 Calcification of abdominal aorta ([facility]) 10/08/202309/[address] abd Diverticulosis 10/08/2023 ESRD on hemodialysis ([facility]) ([facility]) 10/26/2019 Hemodialysis [place] ([facility] ([facility]) HTN (hypertension) 12/01/2022 Hypertension IgA nephropathy 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 10/26/2019 Missed vaccination due to patient refusal 10/08/2023 Has a number of non-scientific based beliefs which interfere with his understanding and acceptance of the medical benefit of vaccination. Nonrheumatic aortic valve stenosis 10/08/2023 Paroxysmal A-fib ([facility]) ([facility]) 08/18/2023 Tobacco abuse 10/08/2023 [2] Past Surgical History: Procedure Laterality Date APPENDECTOMY CARDIAC CATHETERIZATION N/A 10/09/2024 Performed by Bob Watson MD at [facility] Cardiac Cath/EP Lab CARDIAC CATHETERIZATION Bilateral 11/01/2024 Performed by Bob Watson MD at [facility] Cardiac Cath/EP Lab CARDIAC CATHETERIZATION N/A 11/01/2024 Performed by Bob Watson MD at [facility] Cardiac Cath/EP Lab COLONOSCOPY N/A 01/24/2025 Performed by Chadd Davis MD at [facility] ENDOSCOPY FISTULAGRAM (HISTORICAL) Left 09/15/2021 LEFT UPPER ARM HX AV FISTULA CREATION IR EMBOLIZATION 10/14/2024 IR EMBOLIZATION 10/14/2024 [facility] SPECIAL PROCEDURES IR FISTULAGRAM 08/07/2022 IR FISTULAGRAM 08/07/2022 [facility] IR IMAGING TONSILLECTOMY (HISTORICAL) [3] Family History Problem Relation Name Age of Onset No Known Problems Mother No Known Problems Father [4] Social History Tobacco Use Smoking status: Former Current packs/day: 1.00 Average packs/day: 1.4 packs/day for 31.3 years (45.1 ttl pk-yrs) Types: Cigarettes Start date: 1993 Passive exposure: Past Smokeless tobacco: Never Tobacco comments: Started at 28, 3 PPD, tapered down to 1 PPD in 2020 after quitting drinking. 10/27/24 Vaping Use Vaping status: Never Used Substance Use Topics Alcohol use: Not Currently Drug use: Never [5] Allergies Allergen Reactions Lisinopril Swelling and Angioedema [6] No current facility-administered medications on file prior to encounter. Current Outpatient Medications on File Prior to Encounter Medication Sig Dispense Refill warfarin (Coumadin) 1 MG tablet Take as directed per After Visit Summary. acetaminophen (Tylenol) 325 MG tablet Take 650 mg by mouth every 6 hours as needed for mild pain (1-3), fever or moderate pain (4-6). amoxicillin-clavulanate (Augmentin) 500-125 MG tablet Take 1 tablet (500 mg) by mouth daily with supper. Augmentin 500mg q24 (to be taken after HD on HD days) until 03/10/25 B complex-vitamin C-folic acid (Nephro-Nato Rx) 1 MG tablet Take 1 tablet by mouth daily. bisacodyl (Dulcolax) 10 MG suppository Insert 10 mg into the rectum Daily as needed for constipation. bisacodyl (Dulcolax) 5 MG EC tablet Take 5 mg by mouth Daily as needed for constipation. Do not crush, chew, or split. ipratropium-albuterol (Duo-Neb) 0.5-2.5 mg/3 mL nebulizer solution Take 3 mL by nebulization every 8 hours as needed for shortness of breath. Lidocaine 4 % patch Apply 1 patch topically daily. magnesium hydroxide (Milk of Magnesia) 800 MG/5ML suspension Take 30 mL by mouth Daily as needed for constipation (if no bm in 3 days). melatonin 5 MG tablet 1 tablet (5 mg) by Per G Tube route Nightly as needed (insomnia). metoprolol tartrate (Lopressor) 25 MG tablet 1 tablet (25 mg) by Per G Tube route 2 times daily. midodrine (Proamatine) 5 MG tablet 3 tablets (15 mg) by Per G Tube route every 6 hours. naloxone in sodium chloride (PF) injection injection Inject 0.04 mg into the shoulder, thigh, or buttocks as needed for opioid reversal or respiratory depression. QUEtiapine (SEROquel) 25 MG tablet 1 tablet (25 mg) by Per G Tube route Nightly. sevelamer (Renagel) 800 MG tablet Take 800 mg by mouth 3 times daily (with meals). Swallow tablet whole; do not crush, break, or chew. Give with meals for CKD/dialysis Cosigned by Ahsan Gill DO at 03/01/2025 2:50 PM EDT [facility] Anticoagulation Management Service ([facility]) Inpatient Warfarin Consult HPI: Jun Snyder is a 59 y.o. male admitted on 02/20/2025 for Hemoptysis [R04.2]. Medical History[1] Patient is on warfarin for mechanical AVR and has a goal INR 2.0 - 3.0. Patient was referred to [facility], but so far has been managed at facilities, most recently [facility]. Pt's home dose of warfarin is 1.5mg daily except 2.5mg on MWF. Pt's last INR at the facility was 1.4 on 02/20. S/sx of bleeding= admitted with hemoptysis, HGB 8.2 today Interacting medications= heparin drip Labs: Recent Labs 02/27/25 0010 02/28/25 0004 HGB 8.6* 8.2* HCT 28.8* 26.9* PLT 302 324 Recent Labs 02/28/25 0004 INR 1.3* Date INR Dose 02/28 1.3 3mg 02/27 1.3 2mg 02/26 1.3 1.5mg 02/25 1.3 1 mg 02/24 1.3 1 mg 02/23 1.3 HOLD 02/22 1.4 Held 02/21 --- Held 02/20 1.4 Held Assessment/Plan: 1. INR is subtherapeutic due to held doses. Patient has been very sensitive to warfarin in the past, with significant history of bleeding (had GIB recently), history of ICH in September 2024, and presentation this admission of hemoptysis. Since INR is not increasing, will further increase warfarin dose to 3mg today. 2. Monitor for s/s of bleeding and drug interactions. Will adjust dose accordingly. 3. Will facilitate [facility] follow-up upon discharge. Likely will return to facility initially where they will manage warfarin, and [facility] will take over when discharged from facility. Fatuma Odonnell RPh [facility] Consult Service is available daily [phone] via [employer] Secure Chat. [1] Past Medical History: Diagnosis Date Acute renal failure (ARF) ([facility]) 10/19/2019 Anemia 12/30/2021 Calcification of abdominal aorta ([facility]) 10/08/202309/[address] abd Diverticulosis 10/08/2023 ESRD on hemodialysis ([facility]) ([facility]) 10/26/2019 Hemodialysis [place] ([facility]) HTN (hypertension) 12/01/2022 Hypertension IgA nephropathy 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 10/26/2019 Missed vaccination due to patient refusal 10/08/2023 Has a number of non-scientific based beliefs which interfere with his understanding and acceptance of the medical benefit of vaccination. Nonrheumatic aortic valve stenosis 10/08/2023 Paroxysmal A-fib ([facility]) ([facility]) 08/18/2023 Tobacco abuse 10/08/2023 Nephrology Progress Note Following for Seen on HD did well Current Inpatient Medications: Reviewed on NOV. Vitals: BP 147/81 (BP Location: Right arm, Patient Position: Sitting) Pulse 83 Temp 36.4 C (97.6 F) (Temporal) Resp 15 Ht 1.778 m (5' 10) Wt 60.8 kg (134 lb) SpO2 96% BMI 19.23 kg/m BLOOD PRESSURE RANGE: Systolic (24hrs), Av , Min:129 , Max:152 ; Diastolic (24hrs), Av, Min:59, Max:89 24HR INTAKE/OUTPUT: Intake/Output Summary (Last 24 hours) at 02/27/2025 1345 Last data filed at 02/27/2025 1202 Gross per 24 hour Intake 300 ml Output 450 ml Net -150 ml Physical exam: Constitutional: NAD Cardiovascular: Normal S1, S2 without m/r/g Respiratory: CTAB without w/r/r Abdomen: +bs, soft, nt, nd Ext: no lower extremity edema Data: Labs: Recent Labs 02/25/25 0028 02/27/25 0010 WBC 7.5 7.9 HGB 7.6* 8.6* HCT 24.1* 28.8* MCV 93.1 96.0 PLT 280 302 No results for input(s): NA, K, CL, CO2, GLUCOSE, CALCIUM, PHOS, MG, BUN, CREATININE, LABGLOM in the last 72 hours. No lab exists for component: CA, GFRAA Assessment and Plan: 59 y.o. 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 Patient recently admitted to this facility 01/19 for accidental removal of tracheostomy, patient also was treated for GI bleed at that time now back on anticoags. Pt presents to ER for hemoptysis. Nephrology consultedf or ESRD management. ESRD on T TS HD - we will keep the patient in TTS. - L AVF -seen on HD Volume. - Bp acceptable - UF as tolerated with HD Electrolytes Hyponatremia. Likely from poor solute intake - should improve with HD Hypokalemia Adjustment and stabilization with HD Anemia in CKD. 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 Feel free to reach out with any questions or concerns Wellington Nicole MD Images from the original note were not included. [facility] - Infectious Diseases Attending Progress Note Subjective: Patient is being followed for cavitary lung lesions Seen in dialysis Afebrile, no new complaints Objective: Vitals: Patient Vitals for the past 24 hrs: BP Temp Temp src Pulse Resp SpO2 02/27/25 1242 135/80 36.4 C (97.5 F) Temporal 82 13 99 % 02/27/25 1202 136/87 36.8 C (98.2 F) -- 80 -- -- 02/27/25 1143 129/79 -- -- 80 -- -- 02/27/25 1130 143/79 -- -- 81 -- -- 02/27/25 1115 140/59 -- -- 84 -- -- 02/27/25 1100 135/68 -- -- 84 -- -- 02/27/25 1045 137/84 -- -- 81 -- -- 02/27/25 1030 151/82 -- -- 79 -- -- 02/27/25 1015 137/71 -- -- 80 -- -- 02/27/25 0945 149/89 -- -- 83 -- -- 02/27/25 0935 144/71 -- -- 77 -- -- 02/27/25 0917 152/83 -- -- 78 -- -- 02/27/25 0900 149/89 -- -- 82 -- -- 02/27/25 0847 144/83 -- -- 70 -- -- 02/27/25 0843 148/82 -- -- 79 -- -- 02/27/25 0840 137/83 36.8 C (98.3 F) -- 78 18 97 % 02/27/25 0548 144/84 36.4 C (97.6 F) Temporal 78 18 100 % 02/27/25 0252 141/86 36.3 C (97.3 F) Temporal 75 19 100 % 02/26/25 2154 135/73 36.3 C (97.4 F) Temporal 81 19 94 % 02/26/25 1745 151/83 36.5 C (97.7 F) Temporal 76 13 100 % 02/26/25 1423 145/89 36.9 C (98.5 F) Temporal 78 15 100 % Physical Exam General Appearance: Alert, NAD HEENT: wnl Neck: Supple Lungs: Clear to auscultation b/l on room air Cardiovascular: RRR Gastrointestinal: Soft NT, ND, BS+, no palpable masses, hernia : no CVAT. No payne Neurologic: wnl Skin: No rashes Psychiatry: alert and oriented Extremities: left foot 1-4 rth toes necrotic Lines: sites clean Labs: No results for input(s): NA, K, CL, CO2, BUN, CREATININE, GLUCOSE, CALCIUM, PROT, BILITOT, ALKPHOS, AST, ALT, PROCAL in the last 72 hours. No lab exists for component: LABALBU Recent Labs 02/25/25 0028 02/27/25 0010 WBC 7.5 7.9 HGB 7.6* 8.6* HCT 24.1* 28.8* PLT 280 302 Micro: Resp cx: klebsiella Pneumonia pcr panel: staph aureus, klebsiella oxytoca Legionella and strep: negative MRSA by PCR: in process Lines: HD AVF PIV Radiography/Echo/Other: CTA: small isolated filling defect in the right lower lobe subsegmental pulmonary artery of uncertain significance Diffuse multifocal opacities, peripheral distribution, internal bronchogram vs partial cavitation Antimicrobials,Start/End Dates: Vancomycin 02/21 Zosyn 02/21 Impression: Cavitary lung lesions - r/o endocarditis H/o prosthetic aortic valve IGA nephropathy ESRD on HD HTN Paroxysmal A fib Plan: -Pneumonia pcr: staph aureus, klebsiella -Follow resp cx: klebsiella -Blood cx ngtd -YG reviewed- no vegetation noted on prosthetic aortic valve, tricuspid regurgitation noted but that is not new -C/w zosyn- covers klebsiella and MSSA -Patient has IGA nephropathy and now hemoptysis- if all infectious workup is negative will consider Goodpasture's syndrome -Trend wbc and temp Discharge planning: switch to augmentin 500mg q24 (to be taken after HD on HD days) until 03/10/25. Noted that patient has follow up scheduled with pulmonology. Based on diagnoses and management, combination of acute and chronic problems, exacerbations and/or acuity, this visit should be considered to be of moderate complexity. Hussain Quintana MD 02/27/2025 1:03 PM Nutrition Assessment Type and Reason for Visit: Reassess Nutrition Recommendations/Plan: Continue current diet to promote PO intake. Per MNT, initiate ONS Nepro BID. Please document % meal/ONS intakes under I/O flowsheet. Recommend daily wts. Monitor nutrition status, intakes, wt trends, labs, and fluid balance. RD will continue to follow. Malnutrition Assessment: Malnutrition Status: Severe malnutrition (per RD assessment 02/21) Context: Chronic Illness Nutrition Assessment: past medical history of ESRD on dialysis, hypertension, paroxysmal A-fib, CABG with mechanical aortic valve placement on warfarin, history of tracheostomy after cardiac arrest post CABG later tracheostomy decannulated, PEG tube placed, history of GI bleed 1 month ago, initially presented to the hospital with a complaint of hemoptysis. Pulm and ID following for Klebsiella PNA, multiple cavitary pulmonary lesions, small pleural effusions; +abx. Neph following for HD. Gen Surg was consulted for removal of PEG per pt request, states he hasn't been using it and is eating; s/p removal 02/23. Pt was OOR at HD at time of RD assessment. Estimated Daily Nutrient Needs: Energy Requirements Based On: Kcal/kg Weight Used for Energy Requirements: Current Weight for Energy Calculation (kg): 61.1 kg Total Energy Requirements (kcals/day): 30-35 kcal/kg = 7556-5305 kcal Weight Used for Protein Requirements: Current Weight in Kg Used for Protein Requirements: 61.1 kg Estimated Total Protein (g/day): 1.2-1.5 gm/kg = 73-92 gm Estimated Daily Total Fluid (ml/day): per MD recommendations Nutrition Related Findings: +BS. +I&O. No edema. Wound Type: Wound Vac, Wound Consult Pending, Multiple, Pressure Injury, Stage IV, Unstageable (Left toes 1-5: Arterial Ulcer, Left plantar heel - unstageable pressure injury, Right wrist Abrasion, Sacral Stage 4 pressure injury) Current Nutrition Therapies: Adult diet Regular Current Oral Intake Average Meal Intake: 1-25% (per flowsheet) Average Supplements Intake: None Ordered Anthropometric Measures: Height: 177.8 cm (5' 10) Current Body Weight: 60.8 kg (134 lb) (02/23) Weight Source: Bed Scale Usual Body Weight: 93.4 kg (206 lb) (08/28/24) % Weight Change (Calculated): -34.6 [place] Body Weight (lbs) (Calculated): 166 lbs [place] Body Weight (Kg) (Calculated): 75 kg % [place] Body Weight (Calculated): 81.1 % BMI (kg/m2) (Calculated): 19.2 Weight Adjustment For: No Adjustment BMI Categories: Normal Weight (BMI 18.5-24.9) Nutrition Diagnosis: Severe malnutrition, In context of chronic illness related to (prolonged admit 10/03-11/28/24- severe s/p aortic valve replacement 10/12 and complicated post op course, multiple intubations s/p trach/PEG, CRRT transitioned to HD, + wounds) as evidenced by weight loss greater than or equal to 10% in 6 months, severe loss of subcutaneous fat, severe muscle loss Nutrition Interventions: Nutrition Education/Counseling: No recommendation at this time Coordination of Nutrition Care: Continue to monitor while inpatient Goals: Previous Goal Met: Progressing toward Goal(s) Goals: Meet at least 75% of estimated needs, by next RD assessment Nutrition Monitoring and Evaluation: Behavioral-Environmental Outcomes: None Identified Food/Nutrient Intake Outcomes: Food and Nutrient Intake, Supplement Intake Physical Signs/Symptoms Outcomes: Biochemical Data, GI Status, Fluid Status or Edema, Nutrition Focused Physical Findings, Skin, Weight Discharge Planning: Too soon to determine Glenys Juares RD, LD Contact: [phone] Images from the original note were not included. PHYSICAL THERAPY [facility] Name/MRN: Jair Snyder ([id number]) Date: 02/27/2025 Request for see today note, however, pt currently in dialysis. Will plan to return this PM. PT returned at 1330-pt wanted to eat his food while it was warm. PT agreed to return after seeing next patient. PT returned approx 1430. Pt answered firmly I'm not getting up today. Pt states he wants to get up and wants to have a plan for tomorrow about when PT is coming. Told pt would schedule it in AM. Anthony Black, PT Hospitalist Progress Note - [facility] [place] 02/27/2025 9:03 AM [phone]: Please page me for patient care issues. [phone]: Please page [facility] Hospitalist - [facility] for any issues. Subjective and Objective: Admit Date: 02/20/2025 PCP: Leilani Troncoso Chief Complaint Patient presents with Coughing Up Blood Pt arrives via EMS due to coughing up blood. This began around 1200 today while he was at dialysis. Pt endorses nausea, but denies any related abdominal pain. 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 Adult diet Regular Dietary Orders (From admission, onward) Start Ordered 02/21/25 1021 Adult diet Regular Diet effective now Question: Diet type Answer: Regular 02/21/25 1021 I/O last 3 completed shifts: In: 750 (12.3 mL/kg) [P.O.:750] Out: 450 (7.4 mL/kg) [Urine:450 (0.2 mL/kg/hr)] Weight: 60.8 kg @IODETAILS@ @[id number]@ Medications: Continuous Meds[1] Scheduled Meds[2] Recent Labs 02/25/25 0028 02/27/25 0010 WBC 7.5 7.9 HGB 7.6* 8.6* PLT 280 302 No results for input(s): NA, K, CL, CO2, BUN, CREATININE, GLUCOSE in the last 72 hours. No results for input(s): AST, ALT, BILITOT, ALKPHOS in the last 72 hours. No lab exists for component: ALB No results found for: TRIG, HDL, LDLCALC, CHOL No results found for: PHART, PO2ART, NQH3IQL Recent Labs 02/25/25 0028 02/25/25 2345 02/27/25 0010 INR 1.3* 1.3* 1.3* No results for input(s): CKTOTAL, CKMB, TROPONINI in the last 72 hours. No results for input(s): DDIMER in the last 72 hours. No results found for: HGBA1C No results found for: TSH Urine Culture: No results found for this or any previous visit. Objective: Vitals: BP 149/89 Pulse 82 Temp 36.8 C (98.3 F) Resp 18 Ht 5' 10 (1.778 m) Wt 134 lb (60.8 kg) SpO2 97% BMI 19.23 kg/m Pulse Ox: SpO2 Av.9 % Min: 94 % Max: 100 % Supplemental O2: Past 24 hours events: GENERAL: alert and oriented, no acute distress CARDIOVASCULAR: RRR, no murmurs RESPIRATORY: diminished without wheezes ABDOMEN: soft, non tender EXTREMITIES: no edema ANATOMY/TUBES/LINES: left arm fistula Running Summary, Assessment, and Plan Jair is a 59 year old male with PMH below who presented with Chief Complaint of Hemoptysis. Chest CTA showed Diffuse, multifocal opacities and possible infiltrates, with peripheral distribution and internal bronchograms versus partial cavitation, which may represent nonspecific infectious or inflammatory process and pneumonitis. Started on IV antibiotics. Admitted for further evaluation and management. Started on IV heparin and home Coumadin held. Seen by Nephro for dialysis needs. Pulm seen for hemoptysis. Gen surg seen for patient request to remove PEG, done 02/23. ID seen for infection, recommended switch to augmentin 500mg q24 (to be taken after HD on HD days) until 03/10/25. Re-started home Coumadin while bridging with IV Heparin. Acute, acute on chronic, unstable/uncontrolled chronic problems/diagnoses: Hemoptysis in the setting of bilateral cavitary lesion Klebsiella pneumonia with lung abscess Sacral wound Chronic anticoagulation due to mechanical valve replacement along with history of A-fib, Goal INR 2-3 ESRD on dialysis Severe malnutrition IGA nephropathy Subtherapeutic INR Endocarditis ruled out Stable chronic problems affecting care, new non-acute diagnoses: CAD s/p prior CABG HTN As a result of the above findings & factors, the following mgmt was pursued: - IV Zosyn, discharge planning: switch to augmentin 500mg q24 (to be taken after HD on HD days) until 03/10/25 - IV Heparin bridge with Coumadin, daily INRs - Submit for auth pending PT notes - am labs, replace lytes prn - PT/OT/CM/SW as appropriate - delirium precautions: limit night-time awakening - DVT prophylaxis: IV Heparin, dc when INR 2.0 or higher Complexity: Acute illness or injury posing a threat to life or body function (HIGH). Risk: Admission to hospital-level care was considered or occurred (HIGH). Advance Directive: Full Anticipated Discharge - Date - 02/28 - Location - SNF - Pending the following - INR 2.0, dispo Total time spent (which include face to face and non face to face encounters) in minutes: 51 Toxic drug monitoring/narrow therapeutic index drug monitoring : # Drug name : Coumadin # Route administered : oral # Method of monitoring : INR and monitoring for bleeding Extended Emergency Contact Information Primary Emergency Contact: Omar Snyder Mobile Relation: Child Secondary Emergency Contact: Toma Mcneil Mobile Relation: Partner Anthony Hurtado DO Division of Hospitalist Medicine [facility] [1] heparin, 5-30 Units/kg/hr, Last Rate: 18 Units/kg/hr (02/27/25 0722) [2] B complex-vitamin C-folic acid, 1 capsule, Oral, Daily metoprolol tartrate, 25 mg, Oral, BID pantoprazole, 40 mg, Oral, qAM AC piperacillin-tazobactam, 4,500 mg, IntraVENous, q8h QUEtiapine, 25 mg, Oral, Nightly sevelamer carbonate, 800 mg, Oral, TID WC warfarin, 2 mg, Oral, Once [facility] ([facility]) Inpatient Warfarin Consult HPI: Jun Snyder is a 59 y.o. male admitted on 02/20/2025 for Hemoptysis [R04.2]. Medical History[1] Patient is on warfarin for mechanical AVR and has a goal INR 2.0 - 3.0. Patient was referred to [facility], but so far has been managed at facilities, most recently [facility]. Pt's home dose of warfarin is 1.5mg daily except 2.5mg on MWF. Pt's last INR at the facility was 1.4 on 02/20. S/sx of bleeding= admitted with hemoptysis, HGB stable and trending up- documentation from 02/24 states no more bleeding issues Interacting medications= heparin drip Labs: Recent Labs 02/25/25 0028 02/27/25 0010 HGB 7.6* 8.6* HCT 24.1* 28.8* PLT 280 302 Recent Labs 02/27/25 0010 INR 1.3* Date INR Dose 02/27 1.3 2mg 02/26 1.3 1.5mg 02/25 1.3 1 mg 02/24 1.3 1 mg 02/23 1.3 HOLD 02/22 1.4 Held 02/21 --- Held 02/20 1.4 Held Assessment/Plan: 1. INR is subtherapeutic due to held doses. Patient has been very sensitive to warfarin in the past, with significant history of bleeding (had GIB recently), history of ICH in September 2024, and presentation this admission of hemoptysis. Therefore will proceed cautiously and give warfarin 2mg today. 2. Monitor for s/s of bleeding and drug interactions. Will adjust dose accordingly. 3. Will facilitate [facility] follow-up upon discharge. Likely will return to facility initially where they will manage warfarin, and [facility] will take over when discharged from facility. Fatuma Odonnell [facility] Consult Service is available daily [phone] via [employer] Secure Chat. [1] Past Medical History: Diagnosis Date Acute renal failure (ARF) (HCC) 10/19/2019 Anemia 12/30/2021 Calcification of abdominal aorta ([facility]) 10/08/202309/[address] abd Diverticulosis 10/08/2023 ESRD on hemodialysis ([facility]) ([facility]) 10/26/2019 Hemodialysis patient ([facility]) ([facility]) HTN (hypertension) 12/01/2022 Hypertension IgA nephropathy 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 10/26/2019 Missed vaccination due to patient refusal 10/08/2023 Has a number of non-scientific based beliefs which interfere with his understanding and acceptance of the medical benefit of vaccination. Nonrheumatic aortic valve stenosis 10/08/2023 Paroxysmal A-fib ([facility]) ([facility]) 08/18/2023 Tobacco abuse 10/08/2023 Images from the original note were not included. OCCUPATIONAL THERAPY [facility] Initial Evaluation Name/MRN: Jair Snyder ([id number]) Evaluation Date: 02/26/2025 Date of : 1965 Admission Date: 02/20/2025 5:41 PM Age: 59 y.o. Room/Bed: W3334/3334 A Discharge Recommendation: Jail Facility Assessment IMPRESSION: Pt would benefit from continued therapies to maximize potential and increase indep with ADLS and transfers. Pt is below his baseline. Recommend SNF level therapies at discharge. Admitting Diagnosis: Hemoptysis Performance Deficits /Impairments: Increased Pain, Decreased Functional Mobility, Decreased ADL status, Decreased Strength, Decreased Safety Awareness, Decreased Endurance, Decreased Balance, Decreased ROM, Decreased High Level IADLs, and Decreased Posture Prognosis: Fair Decision Making: Medium Complexity Subjective Pt in bed. On 4L/O2 NC. Pt agreeable to OT. During session pt kept making phone calls. After 3 phone call, limit setting explained to pt that all further phone calls will be made when OT session is finished. Pain: 0-10 pain scale: 7/10 Location: Stomach, wound, chest Past Medical History: Medical History[1] Past Surgical History: Surgical History[2] Admission Diagnosis: Patient Active Problem List Diagnosis Date Noted Severe malnutrition ([facility]) ([facility]) 02/21/2025 Hemoptysis 02/20/2025 Complication of tracheostomy ([facility]) ([facility]) 01/19/2025 rn long term care (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 01/12/2025 Acute respiratory failure with hypoxia ([facility]) [J96.01] 01/08/2025 Tracheostomy care ([facility]) [Z43.0] 01/08/2025 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[facility]) 01/08/2025 Sacral osteomyelitis ([facility]) ([facility]) 01/03/2025 Pneumonia of both lungs due to methicillin susceptible Staphylococcus aureus (MSSA) ([facility]) 01/01/2025 Leukocytosis 12/30/2024 Decubitus ulcer of sacral region, unstageable ([facility]) 12/30/2024 Peritonitis due to fungus ([facility]) 11/30/2024 History of abdominal surgery 11/30/2024 Leg DVT (deep venous thromboembolism), acute, left ([facility]) 11/30/2024 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, 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 of skin ([facility]) 11/30/2024 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[facility]) 11/30/2024 Pleural effusion 11/28/2024 Gastric ulceration 2024 Atrial flutter, unspecified type ([facility]) 10/03/2024 RSV (acute bronchiolitis due to respiratory syncytial virus) 10/03/2024 Diverticulosis 10/08/2023 Nonrheumatic aortic valve stenosis 10/08/2023 Calcification of abdominal aorta ([facility]) 10/08/2023 Missed vaccination due to patient refusal 10/08/2023 Tobacco abuse 10/08/2023 Alcohol use disorder in remission 10/08/2023 Paroxysmal A-fib ([facility]) ([facility]) 08/18/2023 HTN (hypertension) 12/01/2022 ESRD on hemodialysis ([facility]) ([facility]) 10/26/2019 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 10/26/2019 BRBPR (bright red blood per rectum) 01/19/2025 Aortic stenosis 10/03/2024 Upper GI bleed 10/03/2024 S/P AVR 10/03/2024 Acute hypoxic respiratory failure ([facility]) 10/03/2024 Acute encephalopathy 10/03/2024 Pneumoperitoneum 10/03/2024 Anemia 12/30/2021 Medical Precautions: No active isolations Proper PPE donned/doffed in accordance with facility standards. Fall Risk: Roque Fall Risk Score: 70 (Low Risk) Roque Fall Risk Score: 70 (High Risk) Precautions/Restrictions: Lines/Drains/Airways: PIV Violence, skin care precautions Family/Caregiver Present: none Overall Cognitive Status: WFL Overall Orientation Status: Ox3 Social/Functional History Patient admitted from SNF. Assistive Equipment: front wheeled walker Prior Level of Function Prior Level of ADL Function: Required Assist Prior Level of Mobility: Required Assist; Device: Front wheeled walker Prior Level of Transfers: Required Assist Objective Upper Extremity Assessment AROM: WFL Fistula left UE. Strength: Exceptions: Right UE: 4/5, Left UE: shoulder NT secondary to fistula, elbow~4/5 Bed Mobility Supine to sit: SBA Sit to supine: SBA Scooting: SBA Transfers/Mobility Sit to stand: Min Assist Stand to sit: Min Assist Sitting balance: SBA Standing balance: Min Assist, Static standing balance with UE support with min assist. Functional mobility: Min Assist, Pt able to take several steps laterally to left towards HOB with min assist. .Sit to stands attempted 3 times. First two times unable to stand. Static sitting balance at EOB with supervision during task. Coordination: Normal Coordination Tone: Normal Tone Sensation: Normal Sensation Vision: wears glasses for reading and and are NOT being used during the eval Hearing: normal AM-PAC AM-PAC Inpatient Daily Activity Raw Score: 13 ADL Inpatient CMS G-Code Modifier: CL Plan Pt would benefit from skilled acute OT services to address Strengthening, ROM, Gait Training, Balance Training, Self-Care/ADL Training, Functional Mobility Training, Endurance Training, Safety Education and Training, and Pain Management. Frequency: 3x/week for 4 weeks Barriers: Pain, Impaired balance, Lower extremity weakness, Limited safety awareness, Decreased endurance, Upper extremity weakness, Skin Care, and Wound Care Safety/Education Safety Safety Devices in place: All fall risk precautions in place, call light within reach, left in bed, patient at risk for falls, and no alarms engaged upon entry Restraints: No Education Education Given To: patient Education Provided: OT Role, Plan of Care, ADL Adaptive Strategies, and Transfer Training Education Method: Verbal Barriers to Learning: None Education Outcome: Verbalized Understanding and Continued Education Needed Goals Patient Stated Goal: To get better and not have pain. Encounter Problems Encounter Problems (Active) Balance Static standing balance during unilateral UE task x 2 mins with supervision. Start: 02/26/25 Expected End: 03/26/25 Dressings Lower Extremities LE dressing with use of AE prn with supervision. Start: 02/26/25 Expected End: 03/26/25 Transfers Toilet transfer with supervision. Start: 02/26/25 Expected End: 03/26/25 Therapy Time Individual Co-Treatment Co-Evaluation Time In 1344 Time Out 1407 Minutes 23 Timed Code Treatment Minutes: 8 Minutes (funct act -1) Patient's Occupational Therapy Plan of Care supervision is transferred to a [facility] Occupational Therapist. Goals and/or treatment plan was established in collaboration with patient/family/other representatives. Ro Sales MS, OTR/L [1] Past Medical History: Diagnosis Date Acute renal failure (ARF) ([facility]) 10/19/2019 Anemia 12/30/2021 Calcification of abdominal aorta ([facility]) 10/08/202309/[address] abd Diverticulosis 10/08/2023 ESRD on hemodialysis ([facility] ([facility]) 10/26/2019 Hemodialysis patient ([facility]) ([facility]) HTN (hypertension) 12/01/2022 Hypertension IgA nephropathy 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 10/26/2019 Missed vaccination due to patient refusal 10/08/2023 Has a number of non-scientific based beliefs which interfere with his understanding and acceptance of the medical benefit of vaccination. Nonrheumatic aortic valve stenosis 10/08/2023 Paroxysmal A-fib ([facility] ([facility]) 08/18/2023 Tobacco abuse 10/08/2023 [2] Past Surgical History: Procedure Laterality Date APPENDECTOMY CARDIAC CATHETERIZATION N/A 10/09/2024 Performed by Bob Watson MD at [facility] Cardiac Cath/EP Lab CARDIAC CATHETERIZATION Bilateral 11/01/2024 Performed by Bob Watson MD at [facility] Cardiac Cath/EP Lab CARDIAC CATHETERIZATION N/A 11/01/2024 Performed by Bob Watson MD at [facility] Cardiac Cath/EP Lab COLONOSCOPY N/A 01/24/2025 Performed by Chadd Davis MD at [facility] ENDOSCOPY FISTULAGRAM (HISTORICAL) Left 09/15/2021 LEFT UPPER ARM HX AV FISTULA CREATION IR EMBOLIZATION 10/14/2024 IR EMBOLIZATION 10/14/2024 [facility] SPECIAL PROCEDURES IR FISTULAGRAM 08/07/2022 IR FISTULAGRAM 08/07/2022 [facility] IR IMAGING TONSILLECTOMY (HISTORICAL) Hospitalist Progress Note 10:18 AM Subjective: Admit Date: 02/20/2025 PCP: Leilani Troncoso Jun is a 59 y.o. male with past medical history below who presents with. Patient history includes ESRD on HD, HTN, paroxysmal A-fib on warfarin. Patient recently admitted to this facility 01/19 for accidental removal of tracheostomy, patient also was treated for GI bleed at that time and anticoagulation ultimately was restarted. Patient states was at dialysis session earlier today when had sudden onset of cough with bright blood. Initial ED workup noted sodium at 133. K+ decreased at 3.1. BUN/creat at 29/2.57. Glucose of 80. WBCs WNL at 9.4. Hgb decreased but appears around baseline at 8.7. INR obtained, subtherapeutic at 1.4. Vital signs note normotensive pressures, HR in 80s. Patient is afebrile. Patient briefly on supplemental O2 2 L however now currently in mid 90s on room air. Will admit for further evaluation and management. -Patient has known history of sacral osteomyelitis-on last admission ID was consulted for cultures positive for E faecalis and Clostridium. Patient reports completing IV ampicillin 1 week ago - CTA Chest 1. Small, apparently isolated filling defect in right lower lobe subsegmental pulmonary artery of uncertain significance. Clinical correlation and follow-up as indicated. 2. No other, apparent large vessel or central pulmonary emboli. 3. Diffuse, multifocal opacities and possible infiltrates, with peripheral distribution and internal bronchograms versus partial cavitation, which may represent nonspecific infectious or inflammatory process and pneumonitis. Differential diagnosis also includes septic emboli and neoplastic or metastatic disease. Clinical correlation and follow-up to resolution advised. 4. Small bilateral pleural effusions. 5. Cholelithiasis, and diminutive [place] kidneys. Seen by pulm service Started on IV abx Started on heparin gtt as well Interval History: pt feels ok Some dizziness at times No more bleeding issues 02/23 Pt awake Reports his PEG is uncomfortable-- wants removed if able No CP 02/24 Pt awake Some cough at times Sob better 02/25 Pt awake No sob today No CP 02/26 Pt awake Pain controlled No CP Adult diet Regular @IODETAILS@ @[email or web address]@ Medications: Continuous Meds[1] Scheduled Meds[2] Recent Labs 02/25/25 0028 WBC 7.5 HGB 7.6* PLT 280 No results for input(s): NA, K, CL, CO2, BUN, CREATININE, GLUCOSE in the last 72 hours. No results for input(s): AST, ALT, BILITOT, ALKPHOS in the last 72 hours. No lab exists for component: ALB No results found for: TRIG, HDL, LDLCALC, CHOL Recent Labs 02/24/25 0010 02/25/25 0028 02/25/25 2345 INR 1.3* 1.3* 1.3* No results for input(s): CKTOTAL, CKMB, TROPONINI in the last 72 hours. Objective: Vitals: BP 139/82 (BP Location: Right arm, Patient Position: Sitting) Pulse 81 Temp 36.8 C (98.2 F) (Temporal) Resp 14 Ht 5' 10 (1.778 m) Wt 134 lb (60.8 kg) SpO2 94% BMI 19.23 kg/m Pulse Ox: SpO2 Av.2 % Min: 94 % Max: 99 % Supplemental O2: O2 Flow Rate (L/min): 3 L/min General appearance: Alert and cooperative with exam Lungs: dec bs at base Heart: regular rate and rhythm Abdomen: soft, non-tender; bowel sounds normal; no masses, no organomegaly Extremities: extremities normal, atraumatic, no cyanosis or edema Noted wound image Neurologic: No obvious focal neurologic deficits. Assessment Principal Problem: Hemoptysis Active Problems: Severe malnutrition (CMS/HCC) (HCC) Hemoptysis in the setting of bilateral cavitary lesion, History of community-acquired pneumonia and hospital-acquired pneumonia History of tracheostomy, accidental dislodgment in December. Currently breathing in room air. Chronic anticoagulation due to mechanical valve replacement along with history of A-fib. Goal INR 2-3, currently subtherapeutic INR 1.4 History of CABG Hypertension ESRD on dialysis Electrolyte imbalance Chronic normocytic normothermic anemia Sacral wound Cont abx for now Await culture results- Klebsiella Following with pulm Follow with ID as well Wound care Renal for HD Heparin gtt back to coumadin -- [facility] to manage-- bridge for mech valve Following Hgb PT/OT Will ask surg about PEG remove per request-- out Anticipated Discharge - Date - 02/27 - Location - Skilled Facility - Pending the following - course Total time spent (which include face to face and non face to face encounters) : 46 minutes See orders, continue POC Advance Directive: Full Code Ramón Romano MD, Rounding Hospitalist [1] heparin, 5-30 Units/kg/hr, Last Rate: 18 Units/kg/hr (02/26/25 0736) [2] B complex-vitamin C-folic acid, 1 capsule, Oral, Daily metoprolol tartrate, 25 mg, Oral, BID pantoprazole, 40 mg, Oral, qAM AC piperacillin-tazobactam, 4,500 mg, IntraVENous, q8h QUEtiapine, 25 mg, Oral, Nightly sevelamer carbonate, 800 mg, Oral, TID WC warfarin, 1.5 mg, Oral, Once Nephrology Progress Note Following for ESRD pt seen in room NAD Doing well Current Inpatient Medications: Reviewed on NOV. Vitals: BP 139/82 (BP Location: Right arm, Patient Position: Sitting) Pulse 81 Temp 36.8 C (98.2 F) (Temporal) Resp 14 Ht 1.778 m (5' 10) Wt 60.8 kg (134 lb) SpO2 94% BMI 19.23 kg/m BLOOD PRESSURE RANGE: Systolic (24hrs), Av , Min:130 , Max:141 ; Diastolic (24hrs), Av, Min:74, Max:86 24HR INTAKE/OUTPUT: Intake/Output Summary (Last 24 hours) at 02/26/2025 0957 Last data filed at 02/26/2025 0617 Gross per 24 hour Intake 1150 ml Output 0 ml Net 1150 ml Physical exam: Constitutional: NAD Cardiovascular: Normal S1, S2 without m/r/g Respiratory: CTAB without w/r/r Abdomen: +bs, soft, nt, nd Ext: no lower extremity edema Data: Labs: Recent Labs 02/25/25 0028 WBC 7.5 HGB 7.6* HCT 24.1* MCV 93.1 PLT 280 No results for input(s): NA, K, CL, CO2, GLUCOSE, CALCIUM, PHOS, MG, BUN, CREATININE, LABGLOM in the last 72 hours. No lab exists for component: CA, GFRAA Assessment and Plan: 59 y.o. 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 Patient recently admitted to this facility 01/19 for accidental removal of tracheostomy, patient also was treated for GI bleed at that time now back on anticoags. Pt presents to ER for hemoptysis. Nephrology consultedf or ESRD management. ESRD on T TS HD - we will keep the patient in TTS. - L AVF Volume. - Bp acceptable - UF as tolerated with HD Electrolytes Hyponatremia. Likely from poor solute intake - should improve with HD Hypokalemia Adjustment and stabilization with HD Anemia in CKD. 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 Feel free to reach out with any questions or concerns Bree Molina APRN [employer] SALES ENGINEER A-G CASTING COORDINATOR [facility] [phone] Pt seen and examined independently by me. I reviewed with, FUEL CELL ENGINEER-[employer] SALES ENGINEER the medical history and the findings on physical examination. I discussed the patient s diagnosis and concur with the treatment plan as documented in his note. Please call [phone] or message me through [employer] with any questions or concerns. PULMONOLOGY CONSULT PROGRESS NOTE 02/26/2025 Hospital LOS: LOS: 6 days PULMONARY FOLLOW UP FOR: Pneumonia ASSESSMENT AND PLAN: Klebsiella PNA Multiple cavitary pulmonary lesions Small pleural effusions Hemoptysis (Resolved) Hx tracheostomy (decannulated in December) - Continue ABX per ID - Follow up CT in 6-8 weeks and outpatient Pulm appointment to follow ( Fellow already messaged for follow up) - Satting well on RA - Signing off, please reconsult if needed Interval History/Event Changes: 59 y.o. male with past medical history of ESRD on dialysis, hypertension, paroxysmal A-fib, CABG with mechanical aortic valve placement on warfarin, history of tracheostomy after cardiac arrest post CABG later tracheostomy decannulated, PEG tube placed, history of GI bleed 1 month ago, initially presented to the hospital with a complaint of hemoptysis. Overnight rapid response called to chest tightness, EKG without acute changes and VS stable remained on floor for monitoring, HDS, SPO2 94 % on RA. Plan to discharge to SNF. Subjectively: NAD, Resting in bed. He denies chest tightness and wheezing at this time. He has a productive cough. He is asking about dressing change for PEG site. ( RN notified) Allergies Allergies[1] Review of Systems A pertinent review of systems was performed and was otherwise non-contributory. Vitals- BP 137/84 (BP Location: Right arm, Patient Position: Lying) Pulse 84 Temp 36.3 C (97.4 F) (Temporal) Resp 16 Ht 5' 10 (1.778 m) Wt 134 lb (60.8 kg) SpO2 98% BMI 19.23 kg/m Tmax: Temp (24hrs), Av.7 C (98 F), Min:36.1 C (97 F), Max:37.2 C (99 F) Hemodynamics: Cuff: Systolic (24hrs), Av , Min:130 , Max:141 /Diastolic (24hrs), Av, Min:74, Max:86 Cuff MAP:MAP (mmHg) Av.9 Min: 89 Max: 111 P: Pulse Av.9 Min: 79 Max: 86 Observed RR: Resp Av Min: 16 Max: 20 Observed O2 sats: SpO2 Av.9 % Min: 93 % Max: 100 % Intake/Output Summary (Last 24 hours) at 02/26/2025 0949 Last data filed at 02/26/2025 0617 Gross per 24 hour Intake 1150 ml Output 0 ml Net 1150 ml Physical exam- Physical Exam Constitutional: Appearance: Normal appearance. HENT: Head: Normocephalic and atraumatic. Right Ear: External ear normal. Left Ear: External ear normal. Nose: Nose normal. No congestion. Mouth/Throat: Pharynx: Oropharynx is clear. No oropharyngeal exudate. Eyes: General: No scleral icterus. Conjunctiva/sclera: Conjunctivae normal. Cardiovascular: Rate and Rhythm: Normal rate and regular rhythm. Pulmonary: Effort: Pulmonary effort is normal. Breath sounds: Rhonchi present. Neurological: Mental Status: He is alert and oriented to person, place, and time. Mental status is at baseline. Routine labs: Recent Labs 02/25/25 0028 WBC 7.5 HGB 7.6* HCT 24.1* PLT 280 Other Laboratory - Imaging Studies: Reviewed and as per electronic record. CxR/CT images reviewed by me when available. [1] Allergies Allergen Reactions Lisinopril Swelling and Angioedema Images from the original note were not included. [facility] Wound Care/NPWT Progress Note Jun Snyder AGE: 59 y.o. GENDER: male : 1965 Subjective: HISTORY of PRESENT ILLNESS HPI Jun Snyder is a 59 y.o. male who presents for a wound care follow up and NPWT application. HPI: 59 y.o. who presents to the emergency department with chief complaint of hemoptysis. Patient was at dialysis today when he started to cough and they noticed he was bringing up pieces of blood. States that it was bright red in the size of a $0.50 piece. Admitted for hemoptysis. Patient with recent admission and discharge and is known to wound care service. Wound Care consulted for multiple wounds. Vac focused exam: Patient resting on Centrella Pro + bed. Denies any needs. Wound vac dressing changed at time of visit with patient tolerating well. PAST MEDICAL HISTORY Medical History[1] PAST SURGICAL HISTORY Surgical History[2] FAMILY HISTORY Family History[3] SOCIAL HISTORY Social History[4] ALLERGIES Allergies[5] MEDICATIONS Medications Ordered Prior to Encounter[6] REVIEW OF SYSTEMS Pertinent items are noted in HPI. Objective: BP 139/82 (BP Location: Right arm, Patient Position: Sitting) Pulse 81 Temp 36.8 C (98.2 F) (Temporal) Resp 14 Ht 1.778 m (5' 10) Wt 60.8 kg (134 lb) SpO2 94% BMI 19.23 kg/m PHYSICAL EXAM General appearance: in no apparent distress, in no respiratory distress and acyanotic, alert, cooperative, and moderately ill, frail and thin appearing Skin: warm and dry Pulmonary: Normal effort, no respiratory distress, no cyanosis Abdomen: soft, nontender, and nondistended Extremities: warm and dry, Palpable DP pulse present +2 Left toes - digits 1-4 - dry gangrene noted with clear demarcation, no odor, no drainage, no sign of infection 02/21/25 02/21/25 Left 5th toe - 0.5x0.5xUTDcm. dry gangrene, no odor, no drainage. Mahnaz-wound intact. 02/21/25 Left plantar heel - 1.0 x 1.0 x utd(cm) 0 wound bed with with dry eschar, no drainage, mahnaz wound tissue intact 02/21/25 Right wrist - small scattered abrasion and bruising noted, small dried exudate noted 02/21/25 Sacrum: Focused assessment on sacral wound VAC dressing change. Patient premedicated for pain with pain medication, per chief of staff, prior to wound VAC dressing change. Wet to dry dressing removed from wound bed with saline without any difficulties. Moderate amount of serosang drainage noted from wound. No purulence, bleeding or odor. All wounds and periwounds cleansed with saline, patted dry and cavilon no sting applied to periwound. Patient's full thickness wound measuring 6 x 4 x 1.5 cm with circumferential undermining at 0.8 cm. Wound bed with pink granulation tissue and structure noted to right side of wound bed. Applied 1 piece of black foam with bridge to right hip. Non-disposable Wound VAC well sealed at 125 mmHg continuous suction. 02/26/25 LABS CBC: Lab Results Component Value Date WBC 7.5 02/25/2025 HGB 7.6 (L) 02/25/2025 HCT 24.1 (L) 02/25/2025 MCV 93.1 02/25/2025 PLT 280 02/25/2025 BMP: No results found for: NA, K, CL, CO2, PHOS, BUN, CREATININE PT/INR: Lab Results Component Value Date PROTIME 13.5 (H) 02/25/2025 INR 1.3 (H) 02/25/2025 Prealbumin: No results found for: PREALBUMIN Albumin:No components found for: LABALBU Sed Rate:No results found for: SEDRATE Micro: No components found for: BC Assessment/Plan: Nursing staff to perform dressing change: Left toes 1-5: Arterial Ulcer (Unknown) -cleanse with NS, apply Betadine and allow to dry, leave CORPORATE FINANCIAL ANALYST daily and PRN Left plantar heel - unstageable pressure injury (POA): -cleanse with NS, apply Betadine and allow to dry, leave TISHA daily and PRN Right wrist Abrasion: -cleanse with antibacterial soap/water, leave [employer]PORATE FINANCIAL ANALYST daily Sacral Stage 4 pressure injury (POA): - Next change 02/26/25 - Clean with NS, apply Vac. Place black foam to wound bed at 125mmHg continuous, change 3 times a week and PRN - Change cannister once a week or when full. - If suction fails: - remove vac dressing - cleanse wound with normal saline - pack wound with saline moistened gauze and change every 12 hours -resting on Centrella Pro + bed at time of visit -waffle chair cushion if up in chair -Q2hr/PRN turns -glide sheets for T&R -continence checks Q1-2 Hrs/PRN Nutritional support Wound Care to follow Recommend to follow up at [facility] Out[facility] wound care center after hospital discharge. Any questions or concerns please secure chat [facility] wound/ostomy. Thank you for the consult! I personally obtained the francis and critical portions of the history and physical exam. I reviewed the labs, imaging studies, and electronic medical record. I reviewed the chart documentation and discussed the patient with treatment team members. I have edited the note to reflect my clinical findings and my assessment and plan. Please note, the time of this note does not reflect the time I saw this patient today, but the time of this documentaton. Portions of this note including HPI, ROS, impression/plan, and examination may have been copied forward from admission to today as to provide important historical information essential in contributing to medical decision making. Documentation has been reviewed and edited as necessary to support clinical decision making for today's visit and to reflect my own independent evaluation of this patient. Decision making for today's visit and to reflect my own independent evaluation of this patient. [1] Past Medical History: Diagnosis Date Acute renal failure (ARF) ([facility]) 10/19/2019 Anemia 12/30/2021 Calcification of abdominal aorta ([facility]) 10/08/202309/[address] abd Diverticulosis 10/08/2023 ESRD on hemodialysis ([facility]) ([facility]) 10/26/2019 Hemodialysis patient ([facility]) ([facility]) HTN (hypertension) 12/01/2022 Hypertension IgA nephropathy 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 10/26/2019 Missed vaccination due to patient refusal 10/08/2023 Has a number of non-scientific based beliefs which interfere with his understanding and acceptance of the medical benefit of vaccination. Nonrheumatic aortic valve stenosis 10/08/2023 Paroxysmal A-fib ([facility]) ([facility]) 08/18/2023 Tobacco abuse 10/08/2023 [2] Past Surgical History: Procedure Laterality Date APPENDECTOMY CARDIAC CATHETERIZATION N/A 10/09/2024 Performed by Bob Watson MD at [facility] Cardiac Cath/EP Lab CARDIAC CATHETERIZATION Bilateral 11/01/2024 Performed by Bob Watson MD at [facility] Cardiac Cath/EP Lab CARDIAC CATHETERIZATION N/A 11/01/2024 Performed by Bob Watson MD at [facility] Cardiac Cath/EP Lab COLONOSCOPY N/A 01/24/2025 Performed by Chadd Davis MD at [facility] ENDOSCOPY FISTULAGRAM (HISTORICAL) Left 09/15/2021 LEFT UPPER ARM HX AV FISTULA CREATION IR EMBOLIZATION 10/14/2024 IR EMBOLIZATION 10/14/2024 [facility] SPECIAL PROCEDURES IR FISTULAGRAM 08/07/2022 IR FISTULAGRAM 08/07/2022 [facility] IR IMAGING TONSILLECTOMY (HISTORICAL) [3] Family History Problem Relation Name Age of Onset No Known Problems Mother No Known Problems Father [4] Social History Tobacco Use Smoking status: Former Current packs/day: 1.00 Average packs/day: 1.4 packs/day for 31.3 years (45.1 ttl pk-yrs) Types: Cigarettes Start date: 1993 Passive exposure: Past Smokeless tobacco: Never Tobacco comments: Started at 28, 3 PPD, tapered down to 1 PPD in 2020 after quitting drinking. 10/27/24 Vaping Use Vaping status: Never Used Substance Use Topics Alcohol use: Not Currently Drug use: Never [5] Allergies Allergen Reactions Lisinopril Swelling and Angioedema [6] No current facility-administered medications on file prior to encounter. Current Outpatient Medications on File Prior to Encounter Medication Sig Dispense Refill warfarin (Coumadin) 1 MG tablet Take as directed per After Visit Summary. [DISCONTINUED] ipratropium-albuterol (Duo-Neb) 0.5-2.5 mg/3 mL nebulizer solution Take 3 mL by nebulization every 8 hours. acetaminophen (Tylenol) 325 MG tablet Take 650 mg by mouth every 6 hours as needed for mild pain (1-3), fever or moderate pain (4-6). B complex-vitamin C-folic acid (Nephro-Nato Rx) 1 MG tablet Take 1 tablet by mouth daily. bisacodyl (Dulcolax) 10 MG suppository Insert 10 mg into the rectum Daily as needed for constipation. bisacodyl (Dulcolax) 5 MG EC tablet Take 5 mg by mouth Daily as needed for constipation. Do not crush, chew, or split. ipratropium-albuterol (Duo-Neb) 0.5-2.5 mg/3 mL nebulizer solution Take 3 mL by nebulization every 8 hours as needed for shortness of breath. Lidocaine 4 % patch Apply 1 patch topically daily. magnesium hydroxide (Milk of Magnesia) 800 MG/5ML suspension Take 30 mL by mouth Daily as needed for constipation (if no bm in 3 days). melatonin 5 MG tablet 1 tablet (5 mg) by Per G Tube route Nightly as needed (insomnia). metoprolol tartrate (Lopressor) 25 MG tablet 1 tablet (25 mg) by Per G Tube route 2 times daily. midodrine (Proamatine) 5 MG tablet 3 tablets (15 mg) by Per G Tube route every 6 hours. naloxone in sodium chloride (PF) injection injection Inject 0.04 mg into the shoulder, thigh, or buttocks as needed for opioid reversal or respiratory depression. QUEtiapine (SEROquel) 25 MG tablet 1 tablet (25 mg) by Per G Tube route Nightly. sevelamer (Renagel) 800 MG tablet Take 800 mg by mouth 3 times daily (with meals). Swallow tablet whole; do not crush, break, or chew. Give with meals for CKD/dialysis [DISCONTINUED] Ampicillin-Sulbactam Sodium (UNASYN IV) Infuse 3 g into a venous catheter Every 24 hours. [DISCONTINUED] bisacodyl (Dulcolax) 5 mg split suppository Insert 10 mg into the rectum Daily as needed (PRN constipation). [DISCONTINUED] epoetin rowan-epbx (Retacrit) 88684 UNIT/ML injection Inject 0.79 mL (7,900 Units) under the skin 1 (one) time per week. (Patient not taking: Reported on 02/21/2025) [DISCONTINUED] pantoprazole (ProtoNix) 40 MG injection Infuse 40 mg into a venous catheter 2 times daily. Cosigned by Ahsan Gill DO at 02/26/2025 4:59 PM EDT [facility] Anticoagulation Management Service ([facility]) Inpatient Warfarin Consult HPI: Jun Snyder is a 59 y.o. male admitted on 02/20/2025 for Hemoptysis [R04.2]. Medical History[1] Patient is on warfarin for mechanical AVR and has a goal INR 2.0 - 3.0. Patient was referred to [facility], but so far has been managed at facilities, most recently [facility]. Pt's home dose of warfarin is 1.5mg daily except 2.5mg on MWF. Pt's last INR at the facility was 1.4 on 02/20. S/sx of bleeding= admitted with hemoptysis, HGB stable and trending up- documentation from 02/24 states no more bleeding issues Interacting medications= heparin drip Labs: Recent Labs 02/25/25 0028 HGB 7.6* HCT 24.1* PLT 280 Recent Labs 02/25/25 2345 INR 1.3* Date INR Dose 02/26 1.3 1.5mg 02/25 1.3 1 mg 02/24 1.3 1 mg 02/23 1.3 HOLD 02/22 1.4 Held 02/21 --- Held 02/20 1.4 Held Assessment/Plan: 1. INR is subtherapeutic due to held doses. Patient has been very sensitive to warfarin in the past, with significant history of bleeding (had GIB recently), history of ICH in September 2024, and presentation this admission of hemoptysis. Therefore will proceed cautiously and give warfarin 1.5mg today. 2. Monitor for s/s of bleeding and drug interactions. Will adjust dose accordingly. 3. Will facilitate [facility] follow-up upon discharge. Likely will return to facility initially where they will manage warfarin, and [facility] will take over when discharged from facility. Fatuma Odonnell RPh [facility] Consult Service is available daily [phone] via [employer] Secure Chat. [1] Past Medical History: Diagnosis Date Acute renal failure (ARF) ([facility]) 10/19/2019 Anemia 12/30/2021 Calcification of abdominal aorta ([facility]) 10/08/202309/[address] abd Diverticulosis 10/08/2023 ESRD on hemodialysis ([facility]) ([facility]) 10/26/2019 Hemodialysis patient ([facility]) ([facility]) HTN (hypertension) 12/01/2022 Hypertension IgA nephropathy 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 10/26/2019 Missed vaccination due to patient refusal 10/08/2023 Has a number of non-scientific based beliefs which interfere with his understanding and acceptance of the medical benefit of vaccination. Nonrheumatic aortic valve stenosis 10/08/2023 Paroxysmal A-fib ([facility]) ([facility]) 08/18/2023 Tobacco abuse 10/08/2023 Nephrology Progress Note Following for ESRD Current Inpatient Medications: Reviewed on NOV. Vitals: BP 134/74 (Patient Position: Lying) Pulse 85 Temp 37.2 C (99 F) (Temporal) Resp 20 Ht 1.778 m (5' 10) Wt 60.8 kg (134 lb) SpO2 98% BMI 19.23 kg/m BLOOD PRESSURE RANGE: Systolic (24hrs), Av , Min:103 , Max:142 ; Diastolic (24hrs), Av, Min:74, Max:91 24HR INTAKE/OUTPUT: Intake/Output Summary (Last 24 hours) at 02/25/2025 1356 Last data filed at 02/25/2025 0723 Gross per 24 hour Intake 500 ml Output 0 ml Net 500 ml Physical exam: Constitutional: NAD Neck: no bruits or jvd noted Cardiovascular: Normal S1, S2 without m/r/g Respiratory: CTAB without w/r/r Abdomen: +bs, soft, nt, nd Ext: no lower extremity edema Data: Labs: Recent Labs 02/23/25 0032 02/25/25 0028 WBC 8.6 7.5 HGB 8.6* 7.6* HCT 27.9* 24.1* MCV 93.0 93.1 PLT 316 280 Recent Labs 02/23/25 0032 NA 135* K 4.1 CL 99 CO2 25 GLUCOSE 110* CALCIUM 9.2 PHOS 2.6 MG 2.0 BUN 21 CREATININE 2.78* Assessment and Plan: 59 y.o. 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 Patient recently admitted to this facility 01/19 for accidental removal of tracheostomy, patient also was treated for GI bleed at that time now back on anticoags. Pt presents to ER for hemoptysis. Nephrology consultedf or ESRD management. ESRD on T TS HD - we will keep the patient in TTS. - L AVF Volume. - Bp acceptable - UF as tolerated with HD Electrolytes Hyponatremia. Likely from poor solute intake - should improve with HD Hypokalemia Adjustment and stabilization with HD Anemia in CKD. 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 PHYSICAL THERAPY [facility] Initial Evaluation Name/MRN: Jair Snyder ([id number]) Evaluation Date: 02/25/2025 Date of : 1965 Admission Date: 02/20/2025 5:41 PM Age: 59 y.o. [facility] Discharge Recommendation: [facility] Equipment Needed: No Assessment IMPRESSION: Patient is a 59 yo admitted due to hemoptysis. Patient with past medical history significant for cardiac arrest in Sep 2024 s/p CABG and trach/PEG, trach/PEG have since been removed. Patient is limited by generalized weakness and reduced safety awareness. Patient required CGA for supine <> sit using log-roll and min A for sit <> stand transfers. Patient ambulated 3 feet using FWW with min A. Patient requires increased time for all tasks. atient will benefit from acute PT services to improve strength and safety with mobility. Recommend SNF level therapies at discharge. Admitting Diagnosis: hemoptysis Prognosis: good Performance Deficits /Impairments: Increased Pain, Decreased Functional Mobility, Decreased ADL status, Decreased Strength, Decreased Safety Awareness, Decreased Endurance, Decreased Balance, Decreased ROM, and Decreased High Level IADLs Decision Making: Medium Complexity Subjective RN cleared patient for PT eval, states patient can be impulsive. Patient awake in bed, agreeable to therapy. Pain: butt Past Medical History: Medical History[1] Past Surgical History: Surgical History[2] Admission Diagnosis: Patient Active Problem List Diagnosis Date Noted Hemoptysis 02/20/2025 Severe malnutrition (CMS/HCC) (HCC) 01/19/2025 Complication of tracheostomy (CMS/HCC) (HCC) 01/19/2025 senior living (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 01/12/2025 Acute respiratory failure with hypoxia ([facility]) [J96.01] 01/08/2025 Tracheostomy care ([facility]) [Z43.0] 01/08/2025 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[facility]) 01/08/2025 Sacral osteomyelitis ([facility]) ([facility]) 01/03/2025 Pneumonia of both lungs due to methicillin susceptible Staphylococcus aureus (MSSA) ([facility]) 01/01/2025 Leukocytosis 12/30/2024 Decubitus ulcer of sacral region, unstageable ([facility]) 12/30/2024 Peritonitis due to fungus ([facility]) 11/30/2024 History of abdominal surgery 11/30/2024 Leg DVT (deep venous thromboembolism), acute, left ([facility]) 11/30/2024 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, 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 of skin ([facility]) 11/30/2024 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[facility]) 11/30/2024 Pleural effusion 11/28/2024 Gastric ulceration 2024 Atrial flutter, unspecified type ([facility]) 10/03/2024 RSV (acute bronchiolitis due to respiratory syncytial virus) 10/03/2024 Diverticulosis 10/08/2023 Nonrheumatic aortic valve stenosis 10/08/2023 Calcification of abdominal aorta ([facility]) 10/08/2023 Missed vaccination due to patient refusal 10/08/2023 Tobacco abuse 10/08/2023 Alcohol use disorder in remission 10/08/2023 Paroxysmal A-fib ([facility]) ([facility]) 08/18/2023 HTN (hypertension) 12/01/2022 ESRD on hemodialysis ([facility]) ([facility]) 10/26/2019 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 10/26/2019 BRBPR (bright red blood per rectum) 01/19/2025 Aortic stenosis 10/03/2024 Upper GI bleed 10/03/2024 S/P AVR 10/03/2024 Acute hypoxic respiratory failure ([facility]) 10/03/2024 Acute encephalopathy 10/03/2024 Pneumoperitoneum 10/03/2024 Anemia 12/30/2021 Medical Precautions: No active isolations Proper PPE donned/doffed in accordance with facility standards. Fall Risk: Roque Fall Risk Score: 70 (Low Risk) Roque Fall Risk Score: 70 (High Risk) Precautions/Restrictions: Lines/Drains/Airways: PIV Violence, skin care precautions, +alarms Family/Caregiver Present: none Overall Cognitive Status: Exceptions - Arousal/alertness: appropriate responses to stimuli - Following commands: follows one step commands consistently - Safety judgement: decreased awareness of need for assistance - Initiation: does not require cues - Sequencing: requires cues for some Overall Orientation Status: Oriented x4 Social/Functional History Patient admitted from SNF. Assistive Equipment: front wheeled walker Prior Level of Function Prior Level of ADL Function: Required Assist Prior Level of Mobility: Required Assist; Device: Front wheeled walker Prior Level of Transfers: Required Assist Objective Bed Mobility Supine to sit: Contact Guard Rolling to left: SBA Scooting: SBA (seated) HOB elevated, utilized modified log-roll due to buttocks pain, required increased time to perform, use of bed rail needed. Reported dizziness which improved but did not resolve with static sitting. Transfers/Mobility Sit to stand: Min Assist Stand to sit: Min Assist From EOB, very slow velocity Device(s) used: Front wheeled walker Ambulation Assistive device(s) used: Front wheeled walker Assist level: Min Assist Distance (ft): 3 feet to chair Quality of gait: narrow REYNOLD, slow saida, instability through all phases, assist needed for line mgmt Balance: Patient stood to assist with donning pants, unsteady, required min A Outcome Measures AM-PAC How much HELP from another person do you currently need Turning from your back to your side while in a flat bed without using bedrails?: A Little Moving from lying on your back to sitting on the side of a flat bed without using bedrails?: A Little Moving to and from a bed to a chair (including a wheelchair)?: A Little Standing up from a chair using your arms (wheelchair or bedside chair)?: A Little Walking in a hospital room?: A Little Stair climbing assessed?: No AM-PAC Inpatient Mobility Raw Score (No Stairs) : 15 JH-HLM JH-HLM Score: Transferred to chair/commode Plan Pt would benefit from skilled acute PT services to address Strengthening, ROM, Gait Training, Balance Training, Self-Care/ADL Training, Functional Mobility Training, Endurance Training, Safety Education and Training, Pain Management, Equipment Evaluation/Education, Neuromuscular Re-Education Training, and Patient/Caregiver Training. Frequency: 2x/week for 4 weeks Barriers: Pain, Impaired balance, Lower extremity weakness, Limited safety awareness, Decreased endurance, Long standing deficits, and Skin Care Safety/Education Safety Safety Devices in place: All fall risk precautions in place, call light within reach, left in chair, chair alarm in place, gait belt, patient at risk for falls, and nurse notified Restraints: No Education Education Given To: patient Education Provided: PT Role, PT Goals, Plan of Care, Benefits of Increasing Activity, and log-roll for bed mobility Education Method: Verbal Barriers to Learning: None Education Outcome: Verbalized Understanding Goals Patient Stated Goal: To go to a different facility Encounter Problems Encounter Problems (Active) Mobility Patient will ambulate 100 feet with supervision and rolling walker in order to improve safety and independence with mobility. Start: 02/25/25 Expected End: 03/25/25 Transfers Patient will perform bed mobility with modified independence in order to improve independence and prepare for out of bed mobility. Start: 02/25/25 Expected End: 03/25/25 Patient will complete functional transfer with rolling walker with modified independence in order to prepare for ambulation. Start: 02/25/25 Expected End: 03/25/25 Therapy Time Individual Co-Treatment Co-Evaluation Time In 0821 Time Out 0850 Minutes 29 Timed Code Treatment Minutes: 8 Minutes (FA) Betty Grady PT Patient's Physical Therapy Plan of Care supervision is transferred to a [facility] Services Physical Therapist. Goals and/or treatment plan was established in collaboration with patient/family/other representatives. [1] Past Medical History: Diagnosis Date Acute renal failure (ARF) ([facility]) 10/19/2019 Anemia 12/30/2021 Calcification of abdominal aorta ([facility]) 10/08/202309/[address] abd Diverticulosis 10/08/2023 ESRD on hemodialysis ([facility]) ([facility]) 10/26/2019 Hemodialysis patient ([facility]) ([facility]) HTN (hypertension) 12/01/2022 Hypertension IgA nephropathy 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 10/26/2019 Missed vaccination due to patient refusal 10/08/2023 Has a number of non-scientific based beliefs which interfere with his understanding and acceptance of the medical benefit of vaccination. Nonrheumatic aortic valve stenosis 10/08/2023 Paroxysmal A-fib ([facility]) ([facility]) 08/18/2023 Tobacco abuse 10/08/2023 [2] Past Surgical History: Procedure Laterality Date APPENDECTOMY CARDIAC CATHETERIZATION N/A 10/09/2024 Performed by Bob Watson MD at [facility] Cardiac Cath/EP Lab CARDIAC CATHETERIZATION Bilateral 11/01/2024 Performed by Bob Watson MD at [facility] Cardiac Cath/EP Lab CARDIAC CATHETERIZATION N/A 11/01/2024 Performed by Bob Watson MD at [facility] Cardiac Cath/EP Lab COLONOSCOPY N/A 01/24/2025 Performed by Chadd Davis MD at [facility] ENDOSCOPY FISTULAGRAM (HISTORICAL) Left 09/15/2021 LEFT UPPER ARM HX AV FISTULA CREATION IR EMBOLIZATION 10/14/2024 IR EMBOLIZATION 10/14/2024 [facility] SPECIAL PROCEDURES IR FISTULAGRAM 08/07/2022 IR FISTULAGRAM 08/07/2022 [facility] IR IMAGING TONSILLECTOMY (HISTORICAL) Hospitalist Progress Note 8:28 AM Subjective: Admit Date: 02/20/2025 PCP: Leilani Troncoso Jun is a 59 y.o. male with past medical history below who presents with. Patient history includes ESRD on HD, HTN, paroxysmal A-fib on warfarin. Patient recently admitted to this facility 01/19 for accidental removal of tracheostomy, patient also was treated for GI bleed at that time and anticoagulation ultimately was restarted. Patient states was at dialysis session earlier today when had sudden onset of cough with bright blood. Initial ED workup noted sodium at 133. K+ decreased at 3.1. BUN/creat at 29/2.57. Glucose of 80. WBCs WNL at 9.4. Hgb decreased but appears around baseline at 8.7. INR obtained, subtherapeutic at 1.4. Vital signs note normotensive pressures, HR in 80s. Patient is afebrile. Patient briefly on supplemental O2 2 L however now currently in mid 90s on room air. Will admit for further evaluation and management. -Patient has known history of sacral osteomyelitis-on last admission ID was consulted for cultures positive for E faecalis and Clostridium. Patient reports completing IV ampicillin 1 week ago - CTA Chest 1. Small, apparently isolated filling defect in right lower lobe subsegmental pulmonary artery of uncertain significance. Clinical correlation and follow-up as indicated. 2. No other, apparent large vessel or central pulmonary emboli. 3. Diffuse, multifocal opacities and possible infiltrates, with peripheral distribution and internal bronchograms versus partial cavitation, which may represent nonspecific infectious or inflammatory process and pneumonitis. Differential diagnosis also includes septic emboli and neoplastic or metastatic disease. Clinical correlation and follow-up to resolution advised. 4. Small bilateral pleural effusions. 5. Cholelithiasis, and diminutive [place] kidneys. Seen by pulm service Started on IV abx Started on heparin gtt as well Interval History: pt feels ok Some dizziness at times No more bleeding issues 02/23 Pt awake Reports his PEG is uncomfortable-- wants removed if able No CP 02/24 Pt awake Some cough at times Sob better 02/25 Pt awake No sob today No CP Adult diet Regular @IODETAILS@ @[email or web address]@ Medications: Continuous Meds[1] Scheduled Meds[2] Recent Labs 02/25/25 0028 WBC 7.5 HGB 7.6* PLT 280 No results for input(s): NA, K, CL, CO2, BUN, CREATININE, GLUCOSE in the last 72 hours. No results for input(s): AST, ALT, BILITOT, ALKPHOS in the last 72 hours. No lab exists for component: ALB No results found for: TRIG, HDL, LDLCALC, CHOL Recent Labs 02/24/25 0010 02/25/25 0028 02/25/25 2345 INR 1.3* 1.3* 1.3* No results for input(s): CKTOTAL, CKMB, TROPONINI in the last 72 hours. Objective: Vitals: BP 132/82 (BP Location: Right arm, Patient Position: Lying) Pulse 83 Temp 36.8 C (98.3 F) (Temporal) Resp 18 Ht 5' 10 (1.778 m) Wt 134 lb (60.8 kg) SpO2 99% BMI 19.23 kg/m Pulse Ox: SpO2 Av.6 % Min: 95 % Max: 99 % Supplemental O2: O2 Flow Rate (L/min): 3 L/min General appearance: Alert and cooperative with exam Lungs: dec bs at base Heart: regular rate and rhythm Abdomen: soft, non-tender; bowel sounds normal; no masses, no organomegaly Extremities: extremities normal, atraumatic, no cyanosis or edema Noted wound image Neurologic: No obvious focal neurologic deficits. Assessment Principal Problem: Hemoptysis Active Problems: Severe malnutrition (CMS/HCC) (HCC) Hemoptysis in the setting of bilateral cavitary lesion, History of community-acquired pneumonia and hospital-acquired pneumonia History of tracheostomy, accidental dislodgment in December. Currently breathing in room air. Chronic anticoagulation due to mechanical valve replacement along with history of A-fib. Goal INR 2-3, currently subtherapeutic INR 1.4 History of CABG Hypertension ESRD on dialysis Electrolyte imbalance Chronic normocytic normothermic anemia Sacral wound Cont abx for now Await culture results- klebisella Following with pulm Follow with ID as well Wound care Renal for HD Heparin gtt back to coumadin -- [facility] to manage Following Hgb PT/OT Will ask surg about PEG remove per request-- out Anticipated Discharge - Date - 02/26 - Location - Skilled Facility - Pending the following - course Total time spent (which include face to face and non face to face encounters) : 45 minutes See orders, continue POC Advance Directive: Full Code Ramón Romano MD, [facility] Hospitalist [1] heparin, 5-30 Units/kg/hr, Last Rate: 18 Units/kg/hr (02/26/25 0736) [2] B complex-vitamin C-folic acid, 1 capsule, Oral, Daily metoprolol tartrate, 25 mg, Oral, BID pantoprazole, 40 mg, Oral, qAM AC piperacillin-tazobactam, 4,500 mg, IntraVENous, q8h QUEtiapine, 25 mg, Oral, Nightly sevelamer carbonate, 800 mg, Oral, TID WC warfarin, 1.5 mg, Oral, Once [facility] Anticoagulation Management Service ([facility]) Inpatient Warfarin Consult HPI: Jun Snyder is a 59 y.o. male admitted on 02/20/2025 for Hemoptysis [R04.2]. Medical History[1] Patient is on warfarin for mechanical AVR and has a goal INR 2.0 - 3.0. Patient was referred to [facility], but so far has been managed at facilities, most recently [facility]. Pt's home dose of warfarin is 1.5mg daily except 2.5mg on MWF. Pt's last INR at the facility was 1.4 on 02/20. S/sx of bleeding= admitted with hemoptysis, HGB stable and trending up- documentation from 02/24 states no more bleeding issues Interacting medications= heparin drip Labs: Recent Labs 02/23/25 0032 02/25/25 0028 HGB 8.6* 7.6* HCT 27.9* 24.1* PLT 316 280 Recent Labs 02/25/25 0028 INR 1.3* Date INR Dose 02/25 1.3 1 mg 02/24 1.3 1 mg 02/23 1.3 HOLD 02/22 1.4 Held 02/21 --- Held 02/20 1.4 Held Assessment/Plan: 1. INR is subtherapeutic due to held doses. Warfarin was restarted yesterday after being held. Patient has been very sensitive to warfarin in the past, with significant history of bleeding (had GIB earlier this month), history of ICH in September 2024, and presentation this admission of hemoptysis. Therefore will proceed cautiously and give 1 mg again today. 2. Monitor for s/s of bleeding and drug interactions. Will adjust dose accordingly. 3. Will facilitate [facility] follow-up upon discharge. Likely will return to facility initially where they will manage warfarin, and [facility] will take over when discharged from facility. Codi Sood PharmD [facility] Consult Service is available daily [phone] via [employer] Secure Chat. [1] Past Medical History: Diagnosis Date Acute renal failure (ARF) ([facility]) 10/19/2019 Anemia 12/30/2021 Calcification of abdominal aorta ([facility]) 10/08/202309/[address] abd Diverticulosis 10/08/2023 ESRD on hemodialysis ([facility] ([facility]) 10/26/2019 Hemodialysis patient ([facility]) ([facility]) HTN (hypertension) 12/01/2022 Hypertension IgA nephropathy 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 10/26/2019 Missed vaccination due to patient refusal 10/08/2023 Has a number of non-scientific based beliefs which interfere with his understanding and acceptance of the medical benefit of vaccination. Nonrheumatic aortic valve stenosis 10/08/2023 Paroxysmal A-fib (CMS/HCC) (HCC) 08/18/2023 Tobacco abuse 10/08/2023 Vancomycin therapy has been discontinued by Hussain Quintana on 02/24. Thank you for the consult. Pharmacy signing off for vancomycin dosing. Marissa Iglesias PharmD, Date: 02/24/25 Time: 4:08 PM Images from the original note were not included. [facility] - Infectious Diseases Attending Progress Note Subjective: Patient is being followed for cavitary lung lesions Afebrile No leukocytosis Objective: Vitals: Patient Vitals for the past 24 hrs: BP Temp Temp src Pulse Resp SpO2 02/24/25 1549 117/78 -- -- 95 -- -- 02/24/25 1427 142/91 -- -- 110 -- -- 02/24/25 1413 115/74 36.8 C (98.3 F) -- 109 16 100 % 02/24/25 1401 103/83 -- -- 115 -- -- 02/24/25 1346 125/85 -- -- 102 -- -- 02/24/25 1331 105/85 -- -- 107 -- -- 02/24/25 1315 135/84 -- -- 99 -- -- 02/24/25 1300 142/93 -- -- (!) 121 -- -- 02/24/25 1247 134/91 -- -- 120 -- -- 02/24/25 1230 138/87 -- -- 119 -- -- 02/24/25 1215 134/85 -- -- 118 -- -- 02/24/25 1200 123/81 -- -- 119 -- -- 02/24/25 1149 126/80 -- -- 119 -- -- 02/24/25 1130 129/80 -- -- 117 -- -- 02/24/25 1115 122/81 -- -- 113 -- -- 02/24/25 1113 127/80 -- -- 114 -- -- 02/24/25 1105 130/85 37.2 C (98.9 F) -- 113 16 99 % 02/24/25 0937 141/89 36.4 C (97.6 F) Temporal 112 16 98 % 02/24/25 0524 131/86 36.9 C (98.4 F) Temporal 109 16 94 % 02/24/25 0112 124/84 36.3 C (97.3 F) Temporal 107 16 96 % 02/23/25 2142 131/90 36.6 C (97.8 F) Temporal 110 16 96 % 02/23/25 1714 151/91 36.2 C (97.1 F) Temporal 94 16 98 % Physical Exam General Appearance: Alert, NAD HEENT: wnl Neck: Supple Lungs: Clear to auscultation b/l on room air Cardiovascular: RRR Gastrointestinal: Soft NT, ND, BS+, no palpable masses, hernia : no CVAT. No payne Neurologic: wnl Skin: No rashes Psychiatry: alert and oriented Extremities: left foot 1-4 rth toes necrotic Lines: sites clean Labs: Recent Labs 02/22/25 0100 02/23/25 0032 NA 132* 135* K 3.4* 4.1 CL 94* 99 CO2 25 25 BUN 36* 21 CREATININE 3.99* 2.78* GLUCOSE 121* 110* CALCIUM 9.2 9.2 PROT 6.7 7.1 BILITOT 0.6 0.6 ALKPHOS 120 136 AST 35* 37* ALT 9 10 Recent Labs 02/22/25 0100 02/23/25 0032 WBC 9.0 8.6 HGB 7.8* 8.6* HCT 24.5* 27.9* PLT 282 316 Micro: Resp cx: klebsiella Pneumonia pcr panel: staph aureus, klebsiella oxytoca Legionella and strep: negative MRSA by PCR: in process Lines: HD AVF PIV Radiography/Echo/Other: CTA: small isolated filling defect in the right lower lobe subsegmental pulmonary artery of uncertain significance Diffuse multifocal opacities, peripheral distribution, internal bronchogram vs partial cavitation Antimicrobials,Start/End Dates: Vancomycin 02/21 Zosyn 02/21 Impression: Cavitary lung lesions - r/o endocarditis H/o prosthetic aortic valve IGA nephropathy ESRD on HD HTN Paroxysmal A fib Plan: -Pneumonia pcr: staph aureus, klebsiella -Follow resp cx: klebsiella -Blood cx ngtd -YG reviewed- no vegetation noted on prosthetic aortic valve, tricuspid regurgitation noted but that is not new -Dc vancomycin -C/w zosyn- covers klebsiella and MSSA -Patient has IGA nephropathy and now hemoptysis- if all infectious workup is negative will consider Goodpasture's syndrome -follow CT chest -Trend wbc and temp Based on diagnoses and management, combination of acute and chronic problems, exacerbations and/or acuity, this visit should be considered to be of moderate complexity. Hussain Quintana MD 02/24/2025 4:02 PM Nephrology Progress Note Following for ESRD Seen on HD Current Inpatient Medications: Reviewed on NOV. Vitals: BP 138/87 Pulse 119 Temp 37.2 C (98.9 F) Resp 16 Ht 1.778 m (5' 10) Wt 60.8 kg (134 lb) SpO2 99% BMI 19.23 kg/m BLOOD PRESSURE RANGE: Systolic (24hrs), Av , Min:122 , Max:151 ; Diastolic (24hrs), Av, Min:80, Max:91 24HR INTAKE/OUTPUT: Intake/Output Summary (Last 24 hours) at 02/24/2025 1245 Last data filed at 02/23/2025 1719 Gross per 24 hour Intake -- Output 100 ml Net -100 ml Physical exam: Constitutional: NAD Neck: no bruits or jvd noted Cardiovascular: Normal S1, S2 without m/r/g Respiratory: CTAB without w/r/r Abdomen: +bs, soft, nt, nd Ext: no lower extremity edema Data: Labs: Recent Labs 02/22/25 0100 02/23/25 003 WBC 9.0 8.6 HGB 7.8* 8.6* HCT 24.5* 27.9* MCV 91.1 93.0 PLT 282 316 Recent Labs 02/22/250 02/23/25 003 NA 132* 135* K 3.4* 4.1 CL 94* 99 CO2 25 25 GLUCOSE 121* 110* CALCIUM 9.2 9.2 PHOS 3.2 2.6 MG 2.2 2.0 BUN 36* 21 CREATININE 3.99* 2.78* Assessment and Plan: 59 y.o. 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 Patient recently admitted to this facility 01/19 for accidental removal of tracheostomy, patient also was treated for GI bleed at that time now back on anticoags. Pt presents to ER for hemoptysis. Nephrology consultedf or ESRD management. ESRD on T TS HD - we will keep the patient in TTS. - L AVF Volume. - Bp acceptable - UF as tolerated with HD Electrolytes Hyponatremia. Likely from poor solute intake - should improve with HD Hypokalemia Adjustment and stabilization with HD Anemia in CKD. 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 Feel free to reach out with any questions or concerns Wellington Nicole MD Hospitalist Progress Note 02/24/2025 9:30 AM Subjective: Admit Date: 02/20/2025 PCP: Leilani Troncoso Jun is a 59 y.o. male with past medical history below who presents with. Patient history includes ESRD on HD, HTN, paroxysmal A-fib on warfarin. Patient recently admitted to this facility 01/19 for accidental removal of tracheostomy, patient also was treated for GI bleed at that time and anticoagulation ultimately was restarted. Patient states was at dialysis session earlier today when had sudden onset of cough with bright blood. Initial ED workup noted sodium at 133. K+ decreased at 3.1. BUN/creat at 29/2.57. Glucose of 80. WBCs WNL at 9.4. Hgb decreased but appears around baseline at 8.7. INR obtained, subtherapeutic at 1.4. Vital signs note normotensive pressures, HR in 80s. Patient is afebrile. Patient briefly on supplemental O2 2 L however now currently in mid 90s on room air. Will admit for further evaluation and management. -Patient has known history of sacral osteomyelitis-on last admission ID was consulted for cultures positive for E faecalis and Clostridium. Patient reports completing IV ampicillin 1 week ago - CTA Chest 1. Small, apparently isolated filling defect in right lower lobe subsegmental pulmonary artery of uncertain significance. Clinical correlation and follow-up as indicated. 2. No other, apparent large vessel or central pulmonary emboli. 3. Diffuse, multifocal opacities and possible infiltrates, with peripheral distribution and internal bronchograms versus partial cavitation, which may represent nonspecific infectious or inflammatory process and pneumonitis. Differential diagnosis also includes septic emboli and neoplastic or metastatic disease. Clinical correlation and follow-up to resolution advised. 4. Small bilateral pleural effusions. 5. Cholelithiasis, and diminutive [place] kidneys. Seen by pulm service Started on IV abx Started on heparin gtt as well Interval History: pt feels ok Some dizziness at times No more bleeding issues 02/23 Pt awake Reports his PEG is uncomfortable-- wants removed if able No CP 02/24 Pt awake Some cough at times Sob better Adult diet Regular @IODETAILS@ @[email or web address]@ Medications: Continuous Meds[1] Scheduled Meds[2] Recent Labs 02/22/259902/23/2531 WBC 9.0 8.6 HGB 7.8* 8.6* PLT 282 316 Recent Labs 02/22/259902/23/2531 NA 132* 135* K 3.4* 4.1 CL 94* 99 CO2 25 BUN 36* 21 CREATININE 3.99* 2.78* GLUCOSE 121* 110* Recent Labs 02/22/259902/23/2531 AST 35* 37* ALT 9 10 BILITOT 0.6 0.6 ALKPHOS 120 136 No results found for: TRIG, HDL, LDLCALC, CHOL Recent Labs 02/22/259902/23/252 02/24/25 0010 INR 1.4* 1.3* 1.3* No results for input(s): CKTOTAL, CKMB, TROPONINI in the last 72 hours. Objective: Vitals: BP 131/86 (BP Location: Right arm, Patient Position: Lying) Pulse 109 Temp 36.9 C (98.4 F) (Temporal) Resp 16 Ht 5' 10 (1.778 m) Wt 134 lb (60.8 kg) SpO2 94% BMI 19.23 kg/m Pulse Ox: SpO2 Av.8 % Min: 94 % Max: 98 % Supplemental O2: O2 Flow Rate (L/min): 3 L/min General appearance: Alert and cooperative with exam Lungs: dec bs at base Heart: regular rate and rhythm Abdomen: soft, non-tender; bowel sounds normal; no masses, no organomegaly Extremities: extremities normal, atraumatic, no cyanosis or edema Noted wound image Neurologic: No obvious focal neurologic deficits. Assessment Principal Problem: Hemoptysis Active Problems: Severe malnutrition (CMS/HCC) (HCC) Hemoptysis in the setting of bilateral cavitary lesion, History of community-acquired pneumonia and hospital-acquired pneumonia History of tracheostomy, accidental dislodgment in December. Currently breathing in room air. Chronic anticoagulation due to mechanical valve replacement along with history of A-fib. Goal INR 2-3, currently subtherapeutic INR 1.4 History of CABG Hypertension ESRD on dialysis Electrolyte imbalance Chronic normocytic normothermic anemia Sacral wound Cont abx for now Await culture results Following with pulm Follow with ID as well Wound care Renal for HD Heparin gtt until procedure plans-- then back to coumadin -- [facility] to manage Following Hgb PT/OT Will ask surg about PEG remove per request-- out Anticipated Discharge - Date - 02/25 - Location - Skilled Facility - Pending the following - course Total time spent (which include face to face and non face to face encounters) : 51 minutes See orders, continue POC Advance Directive: Full Code Ramón Romano MD, [facility] Hospitalist [1] heparin, 5-30 Units/kg/hr, Last Rate: 18 Units/kg/hr (02/24/25 0736) [2] B complex-vitamin C-folic acid, 1 capsule, Oral, Daily metoprolol tartrate, 25 mg, Oral, BID pantoprazole, 40 mg, Oral, qAM AC QUEtiapine, 25 mg, Per G Tube, Nightly sevelamer carbonate, 800 mg, Oral, TID WC vancomycin (Vancocin) intermittent dosing (placeholder), , Other, RX Placeholder [facility] Anticoagulation Management Service ([facility]) Inpatient Warfarin Consult HPI: Jun Snyder is a 59 y.o. male admitted on 02/20/2025 for Hemoptysis [R04.2]. Medical History[1] Patient is on warfarin for mechanical AVR and has a goal INR 2.0 - 3.0. Patient was referred to [facility], but so far has been managed at facilities, most recently [facility]. Pt's home dose of warfarin is 1.5mg daily except 2.5mg on MWF. Pt's last INR at the facility was 1.4 on 02/20. S/sx of bleeding= admitted with hemoptysis, HGB stable and trending up- documentation from today states no more bleeding issues Interacting medications= heparin drip Labs: Recent Labs 02/22/25 0100 02/23/25 0032 HGB 7.8* 8.6* HCT 24.5* 27.9* PLT 282 316 Recent Labs 02/24/25 0010 INR 1.3* Date INR Dose 02/24 1.3 1 mg 02/23 1.3 HOLD 02/22 1.4 Held 02/21 --- Held 02/20 1.4 Held Assessment/Plan: 1. INR is subtherapeutic due to held doses. Warfarin was held yesterday due to PEG tube removal- documentation indicates that this was removed successfully at bedside yesterday. Primary team confirmed that warfarin can be restarted today. Would normally give a boost dose to decrease time to achieve a therapeutic INR- however patient has been very sensitive to warfarin in the past, with significant history of bleeding (had GIB earlier this month), history of ICH in September 2024, and presentation this admission of hemoptysis. Therefore will proceed cautiously and give 1 mg today. 2. Monitor for s/s of bleeding and drug interactions. Will adjust dose accordingly. 3. Will facilitate [facility] follow-up upon discharge. Likely will return to facility initially where they will manage warfarin, and [facility] will take over when discharged from facility. Ro Shelton PharmD [facility] Consult Service is available daily [phone] via [employer] Secure Chat. [1] Past Medical History: Diagnosis Date Acute renal failure (ARF) ([facility]) 10/19/2019 Anemia 12/30/2021 Calcification of abdominal aorta ([facility]) 10/08/202309/[address] abd Diverticulosis 10/08/2023 ESRD on hemodialysis ([facility]) ([facility]) 10/26/2019 Hemodialysis patient ([facility] [place]) ([facility]) HTN (hypertension) 12/01/2022 Hypertension IgA nephropathy 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 10/26/2019 Missed vaccination due to patient refusal 10/08/2023 Has a number of non-scientific based beliefs which interfere with his understanding and acceptance of the medical benefit of vaccination. Nonrheumatic aortic valve stenosis 10/08/2023 Paroxysmal A-fib ([facility]) ([facility]) 08/18/2023 Tobacco abuse 10/08/2023 Images from the original note were not included. [facility] - Infectious Diseases Attending Progress Note Subjective: Patient is being followed for cavitary lung lesions Afebrile No leukocytosis Objective: Vitals: Patient Vitals for the past 24 hrs: BP Temp Temp src Pulse Resp SpO2 02/23/25 0927 131/80 36.2 C (97.1 F) Temporal 94 16 94 % 02/23/25 0512 137/74 36.3 C (97.3 F) Temporal 91 16 98 % 02/23/25 0119 129/79 36.2 C (97.1 F) Temporal 87 16 99 % 02/22/25 2132 138/79 36.4 C (97.5 F) Temporal 94 16 100 % 02/22/25 1752 138/83 36.8 C (98.3 F) Temporal 87 16 97 % Physical Exam General Appearance: Alert, NAD HEENT: wnl Neck: Supple Lungs: Clear to auscultation b/l on room air Cardiovascular: RRR Gastrointestinal: Soft NT, ND, BS+, no palpable masses, hernia : no CVAT. No payne Neurologic: wnl Skin: No rashes Psychiatry: alert and oriented Extremities: left foot 1-4 rth toes necrotic Lines: sites clean Labs: Recent Labs 02/21/255202/22/259902/23/25 003 NA 131* 132* 135* K 3.1* 3.4* 4.1 CL 91* 94* 99 CO2 BUN 29* 36* 21 CREATININE 2.89* 3.99* 2.78* GLUCOSE 74 121* 110* CALCIUM 9.3 9.2 9.2 PROT 6.8 6.7 7.1 BILITOT 0.8 0.6 0.6 ALKPHOS 120 120 136 AST 39* 35* 37* ALT 8 9 10 PROCAL 0.68* -- -- Recent Labs 02/21/255202/22/259902/23/25 003 WBC 7.0 9.0 8.6 HGB 8.3* 7.8* 8.6* HCT 25.7* 24.5* 27.9* PLT 316 282 316 Micro: Resp cx: klebsiella Pneumonia pcr panel: staph aureus, klebsiella oxytoca Legionella and strep: negative MRSA by PCR: in process Lines: HD AVF PIV Radiography/Echo/Other: CTA: small isolated filling defect in the right lower lobe subsegmental pulmonary artery of uncertain significance Diffuse multifocal opacities, peripheral distribution, internal bronchogram vs partial cavitation Antimicrobials,Start/End Dates: Vancomycin 02/21 Zosyn 02/21 Impression: Cavitary lung lesions - r/o endocarditis H/o prosthetic aortic valve IGA nephropathy ESRD on HD HTN Paroxysmal A fib Plan: Pneumonia pcr: staph aureus Follow resp cx: in process Follow blood cx Follow TTE C/w vancomycin Monitor serum creatinine and vancomycin trough C/w zosyn Patient has IGA nephropathy and now hemoptysis- if all infectious workup is negative will consider Goodpasture's syndrome Trend wbc and temp Based on diagnoses and management, combination of acute and chronic problems, exacerbations and/or acuity, this visit should be considered to be of moderate complexity. Hussain Quintana MD 02/23/2025 1:55 PM Images from the original note were not included. [facility] Pul[place] [phone] PULMONARY PROGRESS NOTE. Patient - Jun Snyder, Age - 59 y.o. - 1965 Room Number - W3-334/[id number] A Consulting - Ramón Romano MD Primary Care Physician - Leilani Troncoso Date of Admission - 02/20/2025 5:41 PM Hospital Day - 3 Subjective: Overnight, patient did not have any acute event. This morning patient was alert, awake, oriented, following all the commands. Remained on room air. No hemoptysis was complained. No shortness of breath, fever, chill or any other constitutional symptom present. Objective: Vitals: BP 131/80 (BP Location: Right arm, Patient Position: Lying) Pulse 94 Temp 36.2 C (97.1 F) (Temporal) Resp 16 Ht 1.778 m (5' 10) Wt 61.1 kg (134 lb 11.2 oz) SpO2 94% BMI 19.33 kg/m Pulse Ox: SpO2 Av.3 % Min: 94 % Max: 100 % Supplemental O2: O2 Flow Rate (L/min): 3 L/min I/O 24HR INTAKE/OUTPUT: Intake/Output Summary (Last 24 hours) at 02/23/2025 1259 Last data filed at 02/22/2025 1300 Gross per 24 hour Intake 300 ml Output -- Net 300 ml Physical Exam Physical Exam Cardiovascular: Rate and Rhythm: Normal rate. Pulses: Normal pulses. Heart sounds: Normal heart sounds. Pulmonary: Effort: Pulmonary effort is normal. No respiratory distress. Breath sounds: Normal breath sounds. No stridor. No wheezing, rhonchi or rales. Chest: Chest wall: No tenderness. Musculoskeletal: Right lower leg: No edema. Left lower leg: No edema. Neurological: General: No focal deficit present. Mental Status: He is alert. LABS and Studies: CBC: Recent Labs 02/21/25 0053 02/22/25 0100 02/23/25 0032 WBC 7.0 9.0 8.6 HGB 8.3* 7.8* 8.6* HCT 25.7* 24.5* 27.9* PLT 316 282 316 BMP: Recent Labs 02/21/25 0053 02/22/25 0100 02/23/25 003 NA 131* 132* 135* K 3.1* 3.4* 4.1 CL 91* 94* 99 CO2 BUN 29* 36* 21 CREATININE 2.89* 3.99* 2.78* GLUCOSE 74 121* 110* CALCIUM 9.3 9.2 9.2 MG 2.2 2.2 2.0 PHOS 2.0* 3.2 2.6 HEPATIC: Recent Labs 02/21/25 0053 02/22/259902/23/25 003 AST 39* 35* 37* ALT 8 9 10 BILITOT 0.8 0.6 0.6 ALKPHOS 120 120 136 LACTATE: No lab exists for component: LACTA PROCALCITONIN: Recent Labs 02/21/2552 PROCAL 0.68* TROPONIN: No results for input(s): TROPONINI in the last 72 hours. BNP: No results for input(s): BNP in the last 72 hours. INR: Recent Labs 02/20/25 1825 02/22/259902/23/25 003 INR 1.4* 1.4* 1.3* BLOOD GAS: No results for input(s): PH, PCO2, PO2, HCO3, O2SAT in the last 72 hours. Cultures: Blood Cx: Lab Results Component Value Date BLOODCX Blood culture incubation started 02/22/2025 Gram Stain: Lab Results Component Value Date LABGRAM (A) 02/22/2025 Many Polymorphonuclear leukocytes per low power field LABGRAM Few Epithelial cells per low power field (A) 02/22/2025 LABGRAM Moderate Gram positive cocci in pairs and chains (A) 02/22/2025 LABGRAM Moderate Gram negative bacilli (A) 02/22/2025 LABGRAM Few Gram positive bacilli (A) 02/22/2025 LABGRAM Few Yeast (A) 02/22/2025 LABGRAM Rare Gram positive cocci in clusters (A) 02/22/2025 Sputum Cx: Lab Results Component Value Date RESPCULT Few respiratory ila present. 02/22/2025 RESPCULT Moderate Klebsiella oxytoca (A) 02/22/2025 PNA PCR: Lab Results Component Value Date HUMANMETAPNE Not Detected 02/22/2025 COVID19: No results found for: COVID19 Legionella Ag: Lab Results Component Value Date LEGIONELLAPN Not Detected 02/22/2025 Strep Ag: No results for input(s): STREPPNEUMO in the last 72 hours. No lab exists for component: LABURIN Radiology: CT-scan of the chest (personally reviewed and interpreted by me) -diffuse, multifocal opacities with infiltrates and possible cavitary lesion, concerning for infectious process. PFT's Pulmonary Functions Testing Results: Personally reviewed and interpreted by me - no pft on file Assessment: Jun Snyder is a 59 y.o. male with past medical history of ESRD on dialysis, hypertension, paroxysmal A-fib, CABG with mechanical valve placement on warfarin, history of tracheostomy after cardiac arrest post CABG later tracheostomy reversed, PEG tube placed, history of GI bleed 1 month ago, initially presented to the hospital with a complaint of hemoptysis. He is currently being managed for Hemoptysis in the setting of bilateral cavitary lesion, CT scan concerning for diffuse multifocal peripheral opacities with cavitation. History of community-acquired pneumonia and hospital-acquired pneumonia History of bilateral pleural effusion s/p thoracentesis. Current CT scan showed improved pleural effusion. History of tracheostomy, accidental dislodgment in December. Currently breathing in room air. Chronic anticoagulation due to mechanical valve replacement along with history of A-fib. Goal INR 2-3, currently subtherapeutic INR 1.4 History of CABG Hypertension ESRD on dialysis Electrolyte imbalance Chronic normocytic normothermic anemia Plan: Patient complained of being frothy sputum 2 days ago and also blood streak coming out with cough. Although this symptoms has been resolved. No hemoptysis for last 2 days. Pneumonia PCR showing klebsiella and MSSA, respiratory culture from sputum pending. Antibiotics per ID, on vanc and zosyn for now. As symptoms has been improved less likely any vasculitis or gout. Due to is a concern. Can be coagulopathic but with subtherapeutic INR less likely anticoagulation is still reason for hemoptysis. Currently on heparin drip. Will follow daily PT/INR, APTT. Patient remained on heparin drip. Currently on room air. Breathing treatment if needed. Will follow-up with 6-[address] scan for cavitary lesions. Pulmonary team will continue to follow. Thank you very much for this consultation, we will follow along closely with you. Elly Jett MD PGY- 4 Pulmonary and Critical Care Medicine Cosigned by Angeles Blackburn DO at 02/23/2025 3:18 PM EDT Associated attestation - Angeles Blackburn DO - 02/23/2025 3:18 PM EDT I have personally performed a [id number] diagnostic evaluation on this patient on date of service 02/23/25. History, labs, imaging studies, and electronic medical record have been reviewed by me. This note documented by the [x]house mover supervisor []ARMIN reflects my history, exam, and medical decision making. I have reviewed and agree with the care plan except as documented below. Reported feeling well today. Admitted to a minimal cough, denied any hemoptysis or dyspnea. Hemoptysis, resolved Klebsiella Multiple cavitary pulmonary lesions Small pleural effusions S/p tracheostomy, decannulated in December -Chest imaging reviewed, cavitary lesions appear new compared to chest CT in October, but may have been developing on chest x-rays in December. -No leukocytosis, elevated Pro-Jc. CRP elevated. Pneumonia PCR positive for Klebsiella and MSSA, culture also with Klebsiella -Continues to have clinical improvement. ID following, remains on Vanco and Zosyn. Again discussed short interval follow-up chest CT outpatient with patient to ensure resolution of cavitary lesions -Satting well on RA -Will follow peripherally over the weekend. Please reach out with any concerns [facility] Anticoagulation Management Service ([facility]) Inpatient Warfarin Consult HPI: Jun Snyder is a 59 y.o. male admitted on 02/20/2025 for Hemoptysis [R04.2]. Medical History[1] Patient is on warfarin for mechanical AVR and has a goal INR 2.0 - 3.0. Patient was referred to [facility], but so far has been managed at facilities, most recently [facility]. Pt's home dose of warfarin is 1.5mg daily except 2.5mg on MWF. Pt's last INR at the facility was 1.4 on 02/20. S/sx of bleeding= hgb 8.6 today, admitted with hemoptysis Interacting medications= heparin drip Labs: Recent Labs 02/21/25 0053 02/22/25 0100 02/23/25 0032 HGB 8.3* 7.8* 8.6* HCT 25.7* 24.5* 27.9* PLT 316 282 316 Recent Labs 02/23/25 0032 INR 1.3* Date INR Dose 02/23 1.3 HOLD 02/22 1.4 Held 02/21 --- Held 02/20 1.4 Held Assessment/Plan: 1. INR is subtherapeutic due to held doses. Per Dr. Romano, will ask surgery about PEG removal and will hold warfarin until procedure, so will plan to hold warfarin today. Will resume when OK per primary. 2. Monitor for s/s of bleeding and drug interactions. Will adjust dose accordingly. 3. Will facilitate [facility] follow-up upon discharge. Likely will return to facility initially where they will manage warfarin, and [facility] will take over when discharged from facility. Fatuma Odonnell [facility], PharmD [facility] Consult Service is available daily [phone] via [employer] Secure Chat. [1] Past Medical History: Diagnosis Date Acute renal failure (ARF) ([facility]) 10/19/2019 Anemia 12/30/2021 Calcification of abdominal aorta ([facility]) 10/08/202309/[address] abd Diverticulosis 10/08/2023 ESRD on hemodialysis ([facility]) ([facility]) 10/26/2019 Hemodialysis patient ([facility] [place] ([facility]) HTN (hypertension) 12/01/2022 Hypertension IgA nephropathy 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 10/26/2019 Missed vaccination due to patient refusal 10/08/2023 Has a number of non-scientific based beliefs which interfere with his understanding and acceptance of the medical benefit of vaccination. Nonrheumatic aortic valve stenosis 10/08/2023 Paroxysmal A-fib ([facility]) ([facility]) 08/18/2023 Tobacco abuse 10/08/2023 Hospitalist Progress Note 02/23/2025 11:22 AM Subjective: Admit Date: 02/20/2025 PCP: Leilani Troncoso Jun is a 59 y.o. male with past medical history below who presents with. Patient history includes ESRD on HD, HTN, paroxysmal A-fib on warfarin. Patient recently admitted to this facility 01/19 for accidental removal of tracheostomy, patient also was treated for GI bleed at that time and anticoagulation ultimately was restarted. Patient states was at dialysis session earlier today when had sudden onset of cough with bright blood. Initial ED workup noted sodium at 133. K+ decreased at 3.1. BUN/creat at 29/2.57. Glucose of 80. WBCs WNL at 9.4. Hgb decreased but appears around baseline at 8.7. INR obtained, subtherapeutic at 1.4. Vital signs note normotensive pressures, HR in 80s. Patient is afebrile. Patient briefly on supplemental O2 2 L however now currently in mid 90s on room air. Will admit for further evaluation and management. -Patient has known history of sacral osteomyelitis-on last admission ID was consulted for cultures positive for E faecalis and Clostridium. Patient reports completing IV ampicillin 1 week ago - CTA Chest 1. Small, apparently isolated filling defect in right lower lobe subsegmental pulmonary artery of uncertain significance. Clinical correlation and follow-up as indicated. 2. No other, apparent large vessel or central pulmonary emboli. 3. Diffuse, multifocal opacities and possible infiltrates, with peripheral distribution and internal bronchograms versus partial cavitation, which may represent nonspecific infectious or inflammatory process and pneumonitis. Differential diagnosis also includes septic emboli and neoplastic or metastatic disease. Clinical correlation and follow-up to resolution advised. 4. Small bilateral pleural effusions. 5. Cholelithiasis, and diminutive [place] kidneys. Seen by pulm service Started on IV abx Started on heparin gtt as well Interval History: pt feels ok Some dizziness at times No more bleeding issues 02/23 Pt awake Reports his PEG is uncomfortable-- wants removed if able No CP Adult diet Regular @IODETAILS@ @[email or web address]@ Medications: Continuous Meds[1] Scheduled Meds[2] Recent Labs 02/21/25 0053 02/22/25 0100 02/23/25 0032 WBC 7.0 9.0 8.6 HGB 8.3* 7.8* 8.6* PLT 316 282 316 Recent Labs 02/21/25 0053 02/22/250 02/23/25 0032 NA 131* 132* 135* K 3.1* 3.4* 4.1 CL 91* 94* 99 CO2 BUN 29* 36* 21 CREATININE 2.89* 3.99* 2.78* GLUCOSE 74 121* 110* Recent Labs 02/21/255202/22/259902/23/25 003 AST 39* 35* 37* ALT 8 9 10 BILITOT 0.8 0.6 0.6 ALKPHOS 120 120 136 No results found for: TRIG, HDL, LDLCALC, CHOL Recent Labs 02/20/25 1825 02/22/259902/23/25 003 INR 1.4* 1.4* 1.3* No results for input(s): CKTOTAL, CKMB, TROPONINI in the last 72 hours. Objective: Vitals: BP 131/80 (BP Location: Right arm, Patient Position: Lying) Pulse 94 Temp 36.2 C (97.1 F) (Temporal) Resp 16 Ht 5' 10 (1.778 m) Wt 134 lb 11.2 oz (61.1 kg) SpO2 94% BMI 19.33 kg/m Pulse Ox: SpO2 Av.3 % Min: 94 % Max: 100 % Supplemental O2: O2 Flow Rate (L/min): 3 L/min General appearance: Alert and cooperative with exam Lungs: dec bs at base Heart: regular rate and rhythm Abdomen: soft, non-tender; bowel sounds normal; no masses, no organomegaly Extremities: extremities normal, atraumatic, no cyanosis or edema Noted wound image Neurologic: No obvious focal neurologic deficits. Assessment Principal Problem: Hemoptysis Active Problems: Severe malnutrition (CMS/HCC) (HCC) Hemoptysis in the setting of bilateral cavitary lesion, History of community-acquired pneumonia and hospital-acquired pneumonia History of tracheostomy, accidental dislodgment in December. Currently breathing in room air. Chronic anticoagulation due to mechanical valve replacement along with history of A-fib. Goal INR 2-3, currently subtherapeutic INR 1.4 History of CABG Hypertension ESRD on dialysis Electrolyte imbalance Chronic normocytic normothermic anemia Sacral wound Cont abx for now Await culture results Following with pulm Follow with ID as well Wound care Renal for HD Heparin gtt until procedure plans-- then back to coumadin -- [facility] to manage Following Hgb PT/OT Will ask surg about PEG remove per request Anticipated Discharge - Date - 02/25 - Location - Skilled Facility - Pending the following - course Total time spent (which include face to face and non face to face encounters) : 52 minutes See orders, continue POC Advance Directive: Full Code Ramón Romano MD, [facility] Hospitalist [1] heparin, 5-30 Units/kg/hr, Last Rate: 18 Units/kg/hr (02/23/25 0718) [2] B complex-vitamin C-folic acid, 1 capsule, Oral, Daily metoprolol tartrate, 25 mg, Oral, BID pantoprazole, 40 mg, Oral, qAM AC QUEtiapine, 25 mg, Per G Tube, Nightly sevelamer carbonate, 800 mg, Oral, TID WC vancomycin (Vancocin) intermittent dosing (placeholder), , Other, RX Placeholder Images from the original note were not included. [facility] Wound Care/NPWT Progress Note Jun Snyder AGE: 59 y.o. GENDER: male : 1965 Subjective: HISTORY of PRESENT ILLNESS HPI Jun Snyder is a 59 y.o. male who presents for a wound care follow up and NPWT application. HPI: 59 y.o. who presents to the emergency department with chief complaint of hemoptysis. Patient was at dialysis today when he started to cough and they noticed he was bringing up pieces of blood. States that it was bright red in the size of a $0.50 piece. Admitted for hemoptysis. Patient with recent admission and discharge and is known to wound care service. Wound Care consulted for multiple wounds. Patient resting comfortably in regular hospital bed at time of visit. NPWT dressing intact with no leaks. Treatment completed per this provider today. Patient denies any further needs. PAST MEDICAL HISTORY Medical History[1] PAST SURGICAL HISTORY Surgical History[2] FAMILY HISTORY Family History[3] SOCIAL HISTORY Social History[4] ALLERGIES Allergies[5] MEDICATIONS Medications Ordered Prior to Encounter[6] REVIEW OF SYSTEMS Pertinent items are noted in HPI. Objective: BP 131/80 (BP Location: Right arm, Patient Position: Lying) Pulse 94 Temp 36.2 C (97.1 F) (Temporal) Resp 16 Ht 1.778 m (5' 10) Wt 61.1 kg (134 lb 11.2 oz) SpO2 94% BMI 19.33 kg/m PHYSICAL EXAM General appearance: in no apparent distress, in no respiratory distress and acyanotic, alert, cooperative, and moderately ill, frail and thin appearing Skin: warm and dry Pulmonary: Normal effort, no respiratory distress, no cyanosis Abdomen: soft, nontender, and nondistended Extremities: warm and dry, Palpable DP pulse present +2 Left toes - digits 1-4 - dry gangrene noted with clear demarcation, no odor, no drainage, no sign of infection 02/21/25 02/21/25 Left 5th toe - 0.5x0.5xUTDcm. dry gangrene, no odor, no drainage. Mahnaz-wound intact. 02/21/25 Left plantar heel - 1.0 x 1.0 x utd(cm) 0 wound bed with with dry eschar, no drainage, mahnaz wound tissue intact 02/21/25 Right wrist - small scattered abrasion and bruising noted, small dried exudate noted 02/21/25 Sacrum: Focused assessment on sacral wound VAC dressing change. Patient premedicated for pain with PO pain medication, per chief of staff, prior to wound VAC dressing change. Wet to dry dressing removed from wound bed with saline without any difficulties. Moderate amount of serosang drainage noted from wound. No purulence, bleeding or odor. All wounds and periwounds cleansed with saline, patted dry and cavilon no sting applied to periwound. Patient's full thickness wound measuring 6 x 4 x 1.5 cm with circumferential undermining at 0.8 cm. Wound bed with pink granulation tissue. Applied 1 piece of black foam with bridge to right hip. Non-disposable Wound VAC well sealed at 125 mmHg continuous suction. 02/22/25 LABS CBC: Lab Results Component Value Date WBC 8.6 02/23/2025 HGB 8.6 (L) 02/23/2025 HCT 27.9 (L) 02/23/2025 MCV 93.0 02/23/2025 PLT 316 02/23/2025 BMP: Lab Results Component Value Date NA 135 (L) 02/23/2025 K 4.1 02/23/2025 CL 99 02/23/2025 CO2 25 02/23/2025 PHOS 2.6 02/23/2025 BUN 21 02/23/2025 CREATININE 2.78 (H) 02/23/2025 PT/INR: Lab Results Component Value Date PROTIME 14.0 (H) 02/23/2025 INR 1.3 (H) 02/23/2025 Prealbumin: No results found for: PREALBUMIN Albumin:No components found for: LABALBU Sed Rate:No results found for: SEDRATE Micro: No components found for: BC Assessment/Plan: Nursing staff to perform dressing change: Left toes 1-5: Arterial Ulcer (Unknown) -cleanse with NS, apply Betadine and allow to dry, leave TISHA daily and PRN Left plantar heel - unstageable pressure injury (POA): -cleanse with NS, apply Betadine and allow to dry, leave CORPORATE FINANCIAL ANALYST daily and PRN Right wrist Abrasion: -cleanse with antibacterial soap/water, leave CORPORATE FINANCIAL ANALYST daily Sacral Stage 4 pressure injury (POA): - Next change 02/26/25 - Clean with NS, apply Vac. Place black foam to wound bed at 125mmHg continuous, change 3 times a week and PRN - Change cannister once a week or when full. - If suction fails: - remove vac dressing - cleanse wound with normal saline - pack wound with saline moistened gauze and change every 12 hours -Recommend PVR/Vascular consult for gangrenous toe evaluation -Order P500 bed - Not present 02/23/25 asked RN to follow up on bed -waffle chair cushion if up in chair -Q2hr/PRN turns -glide sheets for T&R -continence checks Q1-2 Hrs/PRN Nutritional support Wound Care to follow Recommend to follow up at [facility] after hospital discharge. Any questions or concerns please secure chat [facility] wound/ostomy. Thank you for the consult! I personally obtained the francis and critical portions of the history and physical exam. I reviewed the labs, imaging studies, and electronic medical record. I reviewed the chart documentation and discussed the patient with treatment team members. I have edited the note to reflect my clinical findings and my assessment and plan. Please note, the time of this note does not reflect the time I saw this patient today, but the time of this documentaton. Portions of this note including HPI, ROS, impression/plan, and examination may have been copied forward from admission to today as to provide important historical information essential in contributing to medical decision making. Documentation has been reviewed and edited as necessary to support clinical decision making for today's visit and to reflect my own independent evaluation of this patient. Decision making for today's visit and to reflect my own independent evaluation of this patient. [1] Past Medical History: Diagnosis Date Acute renal failure (ARF) ([facility]) 10/19/2019 Anemia 12/30/2021 Calcification of abdominal aorta ([facility]) 10/08/202309/[address] abd Diverticulosis 10/08/2023 ESRD on hemodialysis ([facility]) ([facility]) 10/26/2019 Hemodialysis patient ([facility]) ([facility]) HTN (hypertension) 12/01/2022 Hypertension IgA nephropathy 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 10/26/2019 Missed vaccination due to patient refusal 10/08/2023 Has a number of non-scientific based beliefs which interfere with his understanding and acceptance of the medical benefit of vaccination. Nonrheumatic aortic valve stenosis 10/08/2023 Paroxysmal A-fib ([facility]) ([facility]) 08/18/2023 Tobacco abuse 10/08/2023 [2] Past Surgical History: Procedure Laterality Date APPENDECTOMY CARDIAC CATHETERIZATION N/A 10/09/2024 Performed by Bob Watson MD at [facility] Cardiac Cath/EP Lab CARDIAC CATHETERIZATION Bilateral 11/01/2024 Performed by Bob Watson MD at [facility] Cardiac Cath/EP Lab CARDIAC CATHETERIZATION N/A 11/01/2024 Performed by Bob Watson MD at [facility] Cardiac Cath/EP Lab COLONOSCOPY N/A 01/24/2025 Performed by Chadd Davis MD at [facility] ENDOSCOPY FISTULAGRAM (HISTORICAL) Left 09/15/2021 LEFT UPPER ARM HX AV FISTULA CREATION IR EMBOLIZATION 10/14/2024 IR EMBOLIZATION 10/14/2024 [facility] SPECIAL PROCEDURES IR FISTULAGRAM 08/07/2022 IR FISTULAGRAM 08/07/2022 [facility] IR IMAGING TONSILLECTOMY (HISTORICAL) [3] Family History Problem Relation Name Age of Onset No Known Problems Mother No Known Problems Father [4] Social History Tobacco Use Smoking status: Former Current packs/day: 1.00 Average packs/day: 1.4 packs/day for 31.3 years (45.1 ttl pk-yrs) Types: Cigarettes Start date: 1993 Passive exposure: Past Smokeless tobacco: Never Tobacco comments: Started at 28, 3 PPD, tapered down to 1 PPD in 2020 after quitting drinking. 10/27/24 Vaping Use Vaping status: Never Used Substance Use Topics Alcohol use: Not Currently Drug use: Never [5] Allergies Allergen Reactions Lisinopril Swelling and Angioedema [6] No current facility-administered medications on file prior to encounter. Current Outpatient Medications on File Prior to Encounter Medication Sig Dispense Refill warfarin (Coumadin) 1 MG tablet Take as directed per After Visit Summary. [DISCONTINUED] ipratropium-albuterol (Duo-Neb) 0.5-2.5 mg/3 mL nebulizer solution Take 3 mL by nebulization every 8 hours. acetaminophen (Tylenol) 325 MG tablet Take 650 mg by mouth every 6 hours as needed for mild pain (1-3), fever or moderate pain (4-6). B complex-vitamin C-folic acid (Nephro-Nato Rx) 1 MG tablet Take 1 tablet by mouth daily. bisacodyl (Dulcolax) 10 MG suppository Insert 10 mg into the rectum Daily as needed for constipation. bisacodyl (Dulcolax) 5 MG EC tablet Take 5 mg by mouth Daily as needed for constipation. Do not crush, chew, or split. ipratropium-albuterol (Duo-Neb) 0.5-2.5 mg/3 mL nebulizer solution Take 3 mL by nebulization every 8 hours as needed for shortness of breath. Lidocaine 4 % patch Apply 1 patch topically daily. magnesium hydroxide (Milk of Magnesia) 800 MG/5ML suspension Take 30 mL by mouth Daily as needed for constipation (if no bm in 3 days). melatonin 5 MG tablet 1 tablet (5 mg) by Per G Tube route Nightly as needed (insomnia). metoprolol tartrate (Lopressor) 25 MG tablet 1 tablet (25 mg) by Per G Tube route 2 times daily. midodrine (Proamatine) 5 MG tablet 3 tablets (15 mg) by Per G Tube route every 6 hours. naloxone in sodium chloride (PF) injection injection Inject 0.04 mg into the shoulder, thigh, or buttocks as needed for opioid reversal or respiratory depression. QUEtiapine (SEROquel) 25 MG tablet 1 tablet (25 mg) by Per G Tube route Nightly. sevelamer (Renagel) 800 MG tablet Take 800 mg by mouth 3 times daily (with meals). Swallow tablet whole; do not crush, break, or chew. Give with meals for CKD/dialysis [DISCONTINUED] Ampicillin-Sulbactam Sodium (UNASYN IV) Infuse 3 g into a venous catheter Every 24 hours. [DISCONTINUED] bisacodyl (Dulcolax) 5 mg split suppository Insert 10 mg into the rectum Daily as needed (PRN constipation). [DISCONTINUED] epoetin rowan-epbx (Retacrit) 30355 UNIT/ML injection Inject 0.79 mL (7,900 Units) under the skin 1 (one) time per week. (Patient not taking: Reported on 02/21/2025) [DISCONTINUED] pantoprazole (ProtoNix) 40 MG injection Infuse 40 mg into a venous catheter 2 times daily. Cosigned by Ahsan Gill DO at 02/26/2025 4:59 PM EDT Nephrology Progress Note Following for ESRD Pt seen in room no complaints NAD eating breakfast Current Inpatient Medications: Reviewed on NOV. Vitals: BP 137/74 (BP Location: Right arm, Patient Position: Lying) Pulse 91 Temp 36.3 C (97.3 F) (Temporal) Resp 16 Ht 1.778 m (5' 10) Wt 61.1 kg (134 lb 11.2 oz) SpO2 98% BMI 19.33 kg/m BLOOD PRESSURE RANGE: Systolic (24hrs), Av , Min:122 , Max:142 ; Diastolic (24hrs), Av, Min:73, Max:87 24HR INTAKE/OUTPUT: Intake/Output Summary (Last 24 hours) at 02/23/2025 0847 Last data filed at 02/22/2025 1300 Gross per 24 hour Intake 300 ml Output -- Net 300 ml Physical exam: Constitutional: NAD Neck: no bruits or jvd noted Cardiovascular: Normal S1, S2 without m/r/g Respiratory: CTAB without w/r/r Abdomen: +bs, soft, nt, nd Ext: no lower extremity edema Data: Labs: Recent Labs 02/21/255202/22/25 0100 02/23/25 0032 WBC 7.0 9.0 8.6 HGB 8.3* 7.8* 8.6* HCT 25.7* 24.5* 27.9* MCV 89.9 91.1 93.0 PLT 316 282 316 Recent Labs 02/21/255202/22/25 0100 02/23/25 0032 NA 131* 132* 135* K 3.1* 3.4* 4.1 CL 91* 94* 99 CO2 25 GLUCOSE 74 121* 110* CALCIUM 9.3 9.2 9.2 PHOS 2.0* 3.2 2.6 MG 2.2 2.2 2.0 BUN 29* 36* 21 CREATININE 2.89* 3.99* 2.78* Assessment and Plan: 59 y.o. 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 Patient recently admitted to this facility 01/19 for accidental removal of tracheostomy, patient also was treated for GI bleed at that time now back on anticoags. Pt presents to ER for hemoptysis. Nephrology consultedf or ESRD management. ESRD on T TS HD - we will keep the patient in TTS. - L AVF Volume. - Bp acceptable - UF as tolerated with HD Electrolytes Hyponatremia. Likely from poor solute intake - should improve with HD - check Sna in AM Hypokalemia Adjustment and stabilization with HD Anemia in CKD. 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 Feel free to reach out with any questions or concerns Bree Molina APRN [employer] SALES ENGINEER A-G CASTING COORDINATOR [facility] [place] [phone] Pt seen and examined independently by me. I reviewed with FUEL CELL ENGINEER-[employer]ODU[employer] SALES ENGINEER the medical history and the findings on physical examination. I discussed the patient s diagnosis and concur with the treatment plan as documented in his note. Please call [phone] or message me through [employer] with any questions or concerns. Pharmacy Managed Vancomycin Dosing Service Progress Note Consult Date: 02/22/25 Patient Name: Jun Snyder Allergies: Lisinopril Age: 59 y.o. Sex: male Ht: Height: 177.8 cm (5' 10) TBW: Weight: 61.1 kg (134 lb 11.2 oz) BMI: Body mass index is 19.33 kg/m . Lab Results Component Value Date CREATININE 3.99 (H) 02/22/2025 CREATININE 2.89 (H) 02/21/2025 BUN 36 (H) 02/22/2025 BUN 29 (H) 02/21/2025 WBC 9.0 02/22/2025 WBC 7.0 02/21/2025 DW: 61.1 kg Renal: [x]HD []CRRT []PD [] CrCl ml/min (Cockcroft-Gault, if BLOSSOM, no SIGN BOARD ERECTOR) Infectious Diagnosis: Pneumonia (target level = 15-20 mg/L) Next level due: 02/24 - 4 hours post-HD Antimicrobials: Patient recently received an antibiotic (last 12 hours) Date/Time Action Medication Dose Rate 02/22/25 0531 New Bag piperacillin-tazobactam (Zosyn) 2,250 mg in sodium chloride 0.9 % 50 mL IVPB Mini-Bag Plus 2,250 mg 16.67 mL/hr Assessment/Plan: Intermittent vancomycin dosing (Pulse Dosing). Lab Results Component Value Date VANCOTROUGH 11.8 11/02/2024 VANCORANDOM 12.6 02/22/2025 Give Vancomycin 1000 mg x 1 dose based on patient age, weight, renal status and infectious diagnosis (16.4 mg/kg). Will adjust dose/frequency if needed according to level. Follow renal status closely. Orders placed. Thank you for this consult. Please page/call with questions. Date: 02/22/25 Time: 4:36 PM Daryn Nolasco PharmD (available on [employer]) Images from the original note were not included. [facility] [place] [phone] PULMONARY PROGRESS NOTE. Patient - Jun Snyder, Age - 59 y.o. - 1965 Room Number - W3-334/W3-334 A Consulting - Ramón Romano MD Primary Care Physician - Leilani Emely Date of Admission - 02/20/2025 5:41 PM Hospital Day - 2 Subjective: Overnight, patient did not have any acute event. This morning patient was alert, awake, oriented, following all the commands. Remained on room air. No hemoptysis was complained. Objective: Vitals: BP 142/87 Pulse 85 Temp 36.3 C (97.4 F) Resp 20 Ht 1.778 m (5' 10) Wt 61.1 kg (134 lb 11.2 oz) SpO2 96% BMI 19.33 kg/m Pulse Ox: SpO2 Av.2 % Min: 95 % Max: 100 % Supplemental O2: O2 Flow Rate (L/min): 3 L/min I/O 24HR INTAKE/OUTPUT: Intake/Output Summary (Last 24 hours) at 02/22/2025 1414 Last data filed at 02/22/2025 1300 Gross per 24 hour Intake 414.7 ml Output 100 ml Net 314.7 ml Physical Exam Physical Exam Cardiovascular: Rate and Rhythm: Normal rate. Pulses: Normal pulses. Heart sounds: Normal heart sounds. Pulmonary: Effort: Pulmonary effort is normal. No respiratory distress. Breath sounds: Normal breath sounds. No stridor. No wheezing, rhonchi or rales. Chest: Chest wall: No tenderness. Musculoskeletal: Right lower leg: No edema. Left lower leg: No edema. Neurological: General: No focal deficit present. Mental Status: He is alert. LABS and Studies: CBC: Recent Labs 02/20/25182402/21/255202/22/2599 WBC 9.4 7.0 9.0 HGB 8.7* 8.3* 7.8* HCT 26.8* 25.7* 24.5* PLT 312 316 282 BMP: Recent Labs 02/20/25182402/21/255202/22/2599 NA 133* 131* 132* K 3.1* 3.1* 3.4* CL 92* 91* 94* CO2 BUN 29* 29* 36* CREATININE 2.57* 2.89* 3.99* GLUCOSE 80 74 121* CALCIUM 9.6 9.3 9.2 MG -- 2.2 2.2 PHOS -- 2.0* 3.2 HEPATIC: Recent Labs 02/21/255202/22/2599 AST 39* 35* ALT 8 9 BILITOT 0.8 0.6 ALKPHOS 120 120 LACTATE: No lab exists for component: LACTA PROCALCITONIN: Recent Labs 02/21/2552 PROCAL 0.68* TROPONIN: No results for input(s): TROPONINI in the last 72 hours. BNP: No results for input(s): BNP in the last 72 hours. INR: Recent Labs 02/20/25182402/22/2599 INR 1.4* 1.4* BLOOD GAS: No results for input(s): PH, PCO2, PO2, HCO3, O2SAT in the last 72 hours. Cultures: Blood Cx: Lab Results Component Value Date BLOODCX No growth at 5 days 01/01/2025 Gram Stain: Lab Results Component Value Date LABGRAM (A) 02/22/2025 Many Polymorphonuclear leukocytes per low power field LABGRAM Few Epithelial cells per low power field (A) 02/22/2025 LABGRAM Moderate Gram positive cocci in pairs and chains (A) 02/22/2025 LABGRAM Moderate Gram negative bacilli (A) 02/22/2025 LABGRAM Few Gram positive bacilli (A) 02/22/2025 LABGRAM Few Yeast (A) 02/22/2025 LABGRAM Rare Gram positive cocci in clusters (A) 02/22/2025 Sputum Cx: Lab Results Component Value Date RESPCULT Culture in progress 02/22/2025 PNA PCR: Lab Results Component Value Date HUMANMETAPNE Not Detected 02/22/2025 COVID19: No results found for: COVID19 Legionella Ag: Lab Results Component Value Date LEGIONELLAPN Not Detected 02/22/2025 Strep Ag: No results for input(s): STREPPNEUMO in the last 72 hours. No lab exists for component: LABURIN Radiology: CT-scan of the chest (personally reviewed and interpreted by me) -diffuse, multifocal opacities with infiltrates and possible cavitary lesion, concerning for infectious process. PFT's Pulmonary Functions Testing Results: Personally reviewed and interpreted by me - no pft on file Assessment: Jun Snyder is a 59 y.o. male with past medical history of ESRD on dialysis, hypertension, paroxysmal A-fib, CABG with mechanical valve placement on warfarin, history of tracheostomy after cardiac arrest post CABG later tracheostomy reversed, PEG tube placed, history of GI bleed 1 month ago, initially presented to the hospital with a complaint of hemoptysis. He is currently being managed for Hemoptysis in the setting of bilateral cavitary lesion, CT scan concerning for diffuse multifocal peripheral opacities with cavitation. History of community-acquired pneumonia and hospital-acquired pneumonia History of bilateral pleural effusion s/p thoracentesis. Current CT scan showed improved pleural effusion. History of tracheostomy, accidental dislodgment in December. Currently breathing in room air. Chronic anticoagulation due to mechanical valve replacement along with history of A-fib. Goal INR 2-3, currently subtherapeutic INR 1.4 History of CABG Hypertension ESRD on dialysis Electrolyte imbalance Chronic normocytic normothermic anemia Plan: Patient complained of being frothy sputum 2 days ago and also blood streak coming out with cough. Considering radiological finding, highly suspicion for infection. Pneumonia PCR showing klebsiella and MSSA, respiratory culture from sputum pending. Will consider bronchoscopy if patient cannot able to give sample and send BAL for further infectious workup. Antibiotics per ID, on vanc and zosyn for now. Less likely vasculitis etiology, ESR 53. With the history of IG A nephropathy, can be good pastuer syndrome but infectious etiology is top in differential Can be coagulopathic but with subtherapeutic INR less likely anticoagulation is still reason for hemoptysis. Currently on heparin drip. Will follow daily PT/INR, APTT. Currently on room air. Breathing treatment if needed. Pulmonary team will continue to follow. Thank you very much for this consultation, we will follow along closely with you. Elly Jett MD PGY- 4 Pulmonary and Critical Care Medicine Cosigned by Angeles Blackburn DO at 02/22/2025 3:23 PM EDT Associated attestation - Angeles Blackburn DO - 02/22/2025 3:23 PM EDT I have personally performed a [id number] diagnostic evaluation on this patient on date of service 02/22/2025. History, labs, imaging studies, and electronic medical record have been reviewed by me. This note documented by the [x]house mover supervisor []ARMIN reflects my history, exam, and medical decision making. I have reviewed and agree with the care plan except as documented below. Patient reported feeling much better today. Stated that his cough and chest congestion have resolved. Denied any hemoptysis. Hemoptysis, resolved Klebsiella Multiple cavitary pulmonary lesions Small pleural effusions S/p tracheostomy, decannulated in December -Chest imaging reviewed, cavitary lesions appear new compared to chest CT in October, but may have been developing on chest x-rays in December. -No leukocytosis, elevated Pro-Jc. CRP elevated. Pneumonia PCR positive for Klebsiella and MSSA, culture pending. Prior sputum cultures with MSSA. Additionally with Clostridium, Enterococcus, Estrada from wounds. -Appears to be clinically improving. Appreciate ID consult. Remains on Vanco and Zosyn. Blood cultures and TTE pending. Discussed short interval follow-up chest CT with patient to ensure improvement of cavitary lesions -Satting well on RA Hospitalist Progress Note 02/22/2025 11:06 AM Subjective: Admit Date: 02/20/2025 PCP: Leilani Ramirez is a 59 y.o. male with past medical history below who presents with. Patient history includes ESRD on HD, HTN, paroxysmal A-fib on warfarin. Patient recently admitted to this facility 01/19 for accidental removal of tracheostomy, patient also was treated for GI bleed at that time and anticoagulation ultimately was restarted. Patient states was at dialysis session earlier today when had sudden onset of cough with bright blood. Initial ED workup noted sodium at 133. K+ decreased at 3.1. BUN/creat at 29/2.57. Glucose of 80. WBCs WNL at 9.4. Hgb decreased but appears around baseline at 8.7. INR obtained, subtherapeutic at 1.4. Vital signs note normotensive pressures, HR in 80s. Patient is afebrile. Patient briefly on supplemental O2 2 L however now currently in mid 90s on room air. Will admit for further evaluation and management. -Patient has known history of sacral osteomyelitis-on last admission ID was consulted for cultures positive for E faecalis and Clostridium. Patient reports completing IV ampicillin 1 week ago - CTA Chest 1. Small, apparently isolated filling defect in right lower lobe subsegmental pulmonary artery of uncertain significance. Clinical correlation and follow-up as indicated. 2. No other, apparent large vessel or central pulmonary emboli. 3. Diffuse, multifocal opacities and possible infiltrates, with peripheral distribution and internal bronchograms versus partial cavitation, which may represent nonspecific infectious or inflammatory process and pneumonitis. Differential diagnosis also includes septic emboli and neoplastic or metastatic disease. Clinical correlation and follow-up to resolution advised. 4. Small bilateral pleural effusions. 5. Cholelithiasis, and diminutive [place] kidneys. Seen by pulm service Started on IV abx Started on heparin gtt as well Interval History: pt feels ok Some dizziness at times No more bleeding issues Adult diet Regular @IODETAILS@ @[email or web address]@ Medications: Continuous Meds[1] Scheduled Meds[2] Recent Labs 02/20/25182402/21/255202/22/25 0100 WBC 9.4 7.0 9.0 HGB 8.7* 8.3* 7.8* PLT 312 316 282 Recent Labs 02/20/25182402/21/255202/22/25 010 NA 133* 131* 132* K 3.1* 3.1* 3.4* CL 92* 91* 94* CO2 BUN 29* 29* 36* CREATININE 2.57* 2.89* 3.99* GLUCOSE 80 74 121* Recent Labs 02/21/255202/22/25 0100 AST 39* 35* ALT 8 9 BILITOT 0.8 0.6 ALKPHOS 120 120 No results found for: TRIG, HDL, LDLCALC, CHOL Recent Labs 02/20/25182402/22/25 0100 INR 1.4* 1.4* No results for input(s): CKTOTAL, CKMB, TROPONINI in the last 72 hours. Objective: Vitals: BP 136/77 Pulse 79 Temp 36.7 C (98 F) (Temporal) Resp 20 Ht 5' 10 (1.778 m) Wt 134 lb 11.2 oz (61.1 kg) SpO2 95% BMI 19.33 kg/m Pulse Ox: SpO2 Av.4 % Min: 95 % Max: 100 % Supplemental O2: O2 Flow Rate (L/min): 3 L/min General appearance: Alert and cooperative with exam Lungs: dec bs at base Heart: regular rate and rhythm Abdomen: soft, non-tender; bowel sounds normal; no masses, no organomegaly Extremities: extremities normal, atraumatic, no cyanosis or edema Noted wound image Neurologic: No obvious focal neurologic deficits. Assessment Principal Problem: Hemoptysis Active Problems: Severe malnutrition (CMS/HCC) (HCC) Hemoptysis in the setting of bilateral cavitary lesion, History of community-acquired pneumonia and hospital-acquired pneumonia History of tracheostomy, accidental dislodgment in December. Currently breathing in room air. Chronic anticoagulation due to mechanical valve replacement along with history of A-fib. Goal INR 2-3, currently subtherapeutic INR 1.4 History of CABG Hypertension ESRD on dialysis Electrolyte imbalance Chronic normocytic normothermic anemia Sacral wound Cont abx for now Await culture results Following with pulm Follow with ID as well Wound care Renal for HD Heparin gtt until procedure plans-- then back to coumadin Following Hgb PT/OT Anticipated Discharge - Date - 02/25 - Location - Skilled Facility - Pending the following - course Total time spent (which include face to face and non face to face encounters) : 51 minutes See orders, continue POC Advance Directive: Full Code Ramón Romano MD, [facility] Hospitalist [1] heparin, 5-30 Units/kg/hr, Last Rate: 18 Units/kg/hr (02/22/25 0738) [2] B complex-vitamin C-folic acid, 1 capsule, Oral, Daily metoprolol tartrate, 25 mg, Oral, BID pantoprazole, 40 mg, Oral, qAM AC piperacillin-tazobactam, 2,250 mg, IntraVENous, q6h QUEtiapine, 25 mg, Per G Tube, Nightly sevelamer carbonate, 800 mg, Oral, TID WC vancomycin (Vancocin) intermittent dosing (placeholder), , Other, RX Placeholder Images from the original note were not included. OCCUPATIONAL THERAPY [facility] Name/MRN: Jair Snyder ([id number]) Date: 02/22/2025 PT refusing to participate in therapy this AM, will continue to follow and re approach for OT eval. Ro Farnsworth OT Nephrology Progress Note Following for ESRD seen on hd No complaints today Current Inpatient Medications: Reviewed on NOV. Vitals: BP 131/82 (Patient Position: Lying) Pulse 91 Temp 36.7 C (98 F) (Temporal) Resp 20 Ht 1.778 m (5' 10) Wt 61.1 kg (134 lb 11.2 oz) SpO2 95% BMI 19.33 kg/m BLOOD PRESSURE RANGE: Systolic (24hrs), Av , Min:126 , Max:152 ; Diastolic (24hrs), Av, Min:71, Max:88 24HR INTAKE/OUTPUT: Intake/Output Summary (Last 24 hours) at 02/22/2025 0946 Last data filed at 02/22/2025 0529 Gross per 24 hour Intake 114.7 ml Output 100 ml Net 14.7 ml Physical exam: Constitutional: NAD Cardiovascular: Normal S1, S2 without m/r/g Respiratory: CTAB without w/r/r Abdomen: +bs, soft, nt, nd Ext: no lower extremity edema Data: Labs: Recent Labs 02/20/25182402/21/255202/22/25 0100 WBC 9.4 7.0 9.0 HGB 8.7* 8.3* 7.8* HCT 26.8* 25.7* 24.5* MCV 88.4 89.9 91.1 PLT 312 316 282 Recent Labs 02/20/25182402/21/253 02/22/25 0100 NA 133* 131* 132* K 3.1* 3.1* 3.4* CL 92* 91* 94* CO2 29 28 25 GLUCOSE 80 74 121* CALCIUM 9.6 9.3 9.2 PHOS -- 2.0* 3.2 MG -- 2.2 2.2 BUN 29* 29* 36* CREATININE 2.57* 2.89* 3.99* Assessment and Plan: 59 y.o. 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 Patient recently admitted to this facility 01/19 for accidental removal of tracheostomy, patient also was treated for GI bleed at that time now back on anticoags. Pt presents to ER for hemoptysis. Nephrology consultedf or ESRD management. ESRD on T TS HD - we will keep the patient in TTS. - L AVF Volume. - Bp acceptable - UF as tolerated with HD Electrolytes Hyponatremia. Likely from poor solute intake - should improve with HD - check Sna in AM Hypokalemia Adjustment and stabilization with HD Anemia in CKD. 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 Feel free to reach out with any questions or concerns Bree Molina APRN [employer] SALES ENGINEER A-G CASTING COORDINATOR [facility] [place] [phone] Pt seen and examined independently by me. I reviewed with FUEL CELL ENGINEER-[employer] SALES ENGINEER the medical history and the findings on physical examination. I discussed the patient s diagnosis and concur with the treatment plan as documented in his note. Please call [phone] or message me through [employer] with any questions or concerns. Images from the original note were not included. PHYSICAL THERAPY [facility] Name/MRN: Jair Snyder ([id number]) Date: 02/22/2025 Pt declined to work with therapy at this time, stating he wants to wait until after the wound vac is put on. Will reattempt at a later date. Sangeeta Sarabia PT Images from the original note were not included. PHYSICAL THERAPY [facility] Name/MRN: Jair Snyder ([id number]) Date: 02/21/2025 Pt declined to work with therapy at this time, stating he wanted to eat first. Will reattempt at a later date. Sangeeta Sarabia PT Pt awake Some cough, no further hemoptysis CT chest noted-- will ask pulm to eval, unclear what are old findings. PCT is improved and no fever or leukocytosis. Hold on abx for now, consider ID involvement given complicated infectious history. Start heparin gtt as has mech valve-- observe for recurrent bleed-- restart coumadin if no procedures planned per pulm Rest per HP Time 17 min documented in this encounter [facility] 03-05-2025 Miscellaneous Notes Formattin g of this note might be different from the original. Auth is now pending with [facility] for [facility]. Auth ID: [id number] . The insurance needs PT and OT notes- as PT note yesterday incomplete , they are both requested . Confirmed pickup time of 4:00pm on 03/05/25 by transport Critique^It at phone number [phone]. Location of facility drop off is [facility]. Facility notified via [facility], TCC notified on secure chat. Discharge med list transmitted to [facility] via [facility] per TCC request. Tcc requested transport to be set up at 4 PM to permit auth to be ongoing- facility can accept- just requested it be started today - body corporate manager notified, and discharge orders faxed, will confirm in secure chat the time and notify the tx team , orders in epic , rosendo done, [facility] . TCC requested OT notes this am - for ongoing auth - PT INR is now good 1.8 , notified facility want to send today , auth was only good thru 03/02 notified TRANSIT MECHANIC to confirm about auth requirements again today .. Transport in will call, wound VAC to go with patient, discharge orders in [facility] , LIVES at facility LT - the facility wants to skill- tcc is working with them to have him discharge later today - transport in will call . Boat Tester notified to send orders and med rec to [facility] Problem: Knowledge Deficit Goal: Patient/family/caregiver demonstrates understanding of disease process, treatment plan, medications, and discharge instructions Outcome: Progressing Problem: Potential for Compromised Skin Integrity Goal: Skin Integrity is Maintained or Improved Outcome: Progressing Goal: Nutritional status is improving Outcome: Progressing Problem: Urinary Incontinence Goal: Perineal skin integrity is maintained or improved Outcome: Progressing Problem: Problem Interventions Goal: Promote nutritional intake Outcome: Progressing Care Management Progress Note DC plan is return to ECF/SNF- [facility], no auth needed to return however facility getting auth for skilled. Requested PT/OT updates WEDNESDAY/WEDNESDAY to continue insurance auth. Awaiting for INR >or = 1.8 per SAILAJA. INR this AM is 1.5. Updated facility this am on the above. CM will continue to follow for add'l needs for dc. Length of Stay (Days): 12 GMLOS: 4.6 Problem: Knowledge Deficit Goal: Patient/family/caregiver demonstrates understanding of disease process, treatment plan, medications, and discharge instructions Outcome: Progressing Problem: Problem Interventions Goal: Promote nutritional intake Outcome: Progressing Problem: Knowledge Deficit Goal: Patient/family/caregiver demonstrates understanding of disease process, treatment plan, medications, and discharge instructions Outcome: Progressing Problem: Potential for Compromised Skin Integrity Goal: Skin Integrity is Maintained or Improved Outcome: Progressing Goal: Nutritional status is improving Outcome: Progressing Problem: Urinary Incontinence Goal: Perineal skin integrity is maintained or improved Outcome: Progressing Problem: Problem Interventions Goal: Promote nutritional intake Outcome: Progressing Care Management Progress Note 03/03/25 1025 Rapid Rounds Attendance Licensed Physical Therapy Assistant Planned Discharge Disposition [facility]sp ([facility], is LTC no AUTH needed) Today we still await Other (INR >or = 1.8 per SAILAJA) Clinical stability Attending completion of discharge workflow Additional Comments: We have a skilled AUTH that expires midnight tonight, however facility will still accept without AUTH per previous CM notes This Licensed Physical Therapy Assistant was tasked to follow this patient through the weekend. Chart and Careport were reviewed. INR this am is 1.6, subtherapeutic. Facility updated. Transportation is in will call. manager fleet will continue to follow for transitional care needs and discharge planning. Length of Stay (Days): 11 GMLOS: 4.6 Problem: Knowledge Deficit Goal: Patient/family/caregiver demonstrates understanding of disease process, treatment plan, medications, and discharge instructions Outcome: Progressing Problem: Potential for Compromised Skin Integrity Goal: Skin Integrity is Maintained or Improved Outcome: Progressing Goal: Nutritional status is improving Outcome: Progressing Problem: Urinary Incontinence Goal: Perineal skin integrity is maintained or improved Outcome: Progressing Problem: Problem Interventions Goal: Promote nutritional intake Outcome: Progressing Switch to augmentin 500mg q24 (to be taken after HD on HD days) until 03/10/25. Team aware of discharge plan Waiting for INR to be in therapeutic range ID will sign off Please re consult if needed Hussain Quintana MD 03/02/2025 12:43 PM precert- EXTENSION REQUESTED- updated PT/OT notes - from 03/01 still has wound vac- cannot discharge today ( auth expires today ) due to INR still low on hep gtt for bridging- we anticipate will be OK this weekend please try to extend auth ? Updated facility and weekend tasked -- transport in will call but needs to now go to HD in am OK per SAILAJA if INR 1.8 or higher transport in will call - IF no auth the snf will still accept as he lives there >> . Problem: Knowledge Deficit Goal: Patient/family/caregiver demonstrates understanding of disease process, treatment plan, medications, and discharge instructions Outcome: Progressing Problem: Potential for Compromised Skin Integrity Goal: Skin Integrity is Maintained or Improved Outcome: Progressing Goal: Nutritional status is improving Outcome: Progressing Problem: Urinary Incontinence Goal: Perineal skin integrity is maintained or improved Outcome: Progressing Problem: Problem Interventions Goal: Promote nutritional intake Outcome: Progressing Discharge med list and updated notes transmitted to [facility]- [facility] via [facility] per TCC request. Per epic review INR still 1.4 - notified SAILAJA of the discharge plan and auth is back - good thru 03/02 however he lives there and does have wound vac, tcc notified tx but remains on hep gtt . mechanical AVR and has a goal INR 2.0 - 3.0. however per SAILAJA he can discharge at 1.8 - and need labs post at [facility] to follow . Boat Tester tasked to send wound vac and clinicals- requested PT/OT notes for ongoing auth . Rosendo done- transport in will call to return to [facility] where he lives facility did want to try to skill but will accept back .. Problem: Knowledge Deficit Goal: Patient/family/caregiver demonstrates understanding of disease process, treatment plan, medications, and discharge instructions Outcome: Progressing Problem: Potential for Compromised Skin Integrity Goal: Skin Integrity is Maintained or Improved Outcome: Progressing Goal: Nutritional status is improving Outcome: Progressing Problem: Urinary Incontinence Goal: Perineal skin integrity is maintained or improved Outcome: Progressing Problem: Problem Interventions Goal: Promote nutritional intake Outcome: Progressing Problem: Knowledge Deficit Goal: Patient/family/caregiver demonstrates understanding of disease process, treatment plan, medications, and discharge instructions Outcome: Progressing Problem: Potential for Compromised Skin Integrity Goal: Skin Integrity is Maintained or Improved Outcome: Progressing Goal: Nutritional status is improving Outcome: Progressing Problem: Urinary Incontinence Goal: Perineal skin integrity is maintained or improved Outcome: Progressing Problem: Problem Interventions Goal: Promote nutritional intake Outcome: Progressing Auth is back however can not discharge still on hep gtt- auth good thru 03/02- hoping by Wednesday AM . Updated snf . Transport requested in [employer] in will call per TCC. Tasked TRANSIT MECHANIC to set up transport in will call, not ready for DC, Auth pending Problem: Knowledge Deficit Goal: Patient/family/caregiver demonstrates understanding of disease process, treatment plan, medications, and discharge instructions Outcome: Progressing Problem: Potential for Compromised Skin Integrity Goal: Skin Integrity is Maintained or Improved Outcome: Progressing Goal: Nutritional status is improving Outcome: Progressing Problem: Urinary Incontinence Goal: Perineal skin integrity is maintained or improved Outcome: Progressing Problem: Problem Interventions Goal: Promote nutritional intake Outcome: Progressing Problem: Knowledge Deficit Goal: Patient/family/caregiver demonstrates understanding of disease process, treatment plan, medications, and discharge instructions Outcome: Progressing Problem: Potential for Compromised Skin Integrity Goal: Skin Integrity is Maintained or Improved Outcome: Progressing Goal: Nutritional status is improving Outcome: Progressing Problem: Urinary Incontinence Goal: Perineal skin integrity is maintained or improved Outcome: Progressing Problem: Problem Interventions Goal: Promote nutritional intake Outcome: Progressing Care Management Progress Note At dialysis today. Need updated therapy to start auth for [facility]. Continues on IV antibiotics. On a heparin gtt. SMS following to change to Coumadin. INR 13 today. Plan is to return to [facility]. . Length of Stay (Days): 7 GMLOS: 4.5 Problem: Knowledge Deficit Goal: Patient/family/caregiver demonstrates understanding of disease process, treatment plan, medications, and discharge instructions Outcome: Progressing Problem: Potential for Compromised Skin Integrity Goal: Skin Integrity is Maintained or Improved Outcome: Progressing Goal: Nutritional status is improving Outcome: Progressing Problem: Urinary Incontinence Goal: Perineal skin integrity is maintained or improved Outcome: Progressing Problem: Problem Interventions Goal: Promote nutritional intake Outcome: Progressing Problem: Knowledge Deficit Goal: Patient/family/caregiver demonstrates understanding of disease process, treatment plan, medications, and discharge instructions Outcome: Progressing Problem: Potential for Compromised Skin Integrity Goal: Skin Integrity is Maintained or Improved Outcome: Progressing Goal: Nutritional status is improving Outcome: Progressing Problem: Urinary Incontinence Goal: Perineal skin integrity is maintained or improved Outcome: Progressing Problem: Problem Interventions Goal: Promote nutritional intake Outcome: Progressing Getting updated therapy notes. Want to skill him at [facility]. Started on IV antibiotics for aspiration pneumonia. Continues on a heparin gtt. . Updated notes sent to [facility] via [facility] per [facility] request. Await review and response regarding ability to accept. TCC notified. 2331 - called to see patient for chest tightness. Patient states pain comes and goes. Nothing alleviates or aggravates the pain. States it is in the middle of his chest. It does not radiate. It is not reproducible. Patient does endorse frequent, nonproductive cough. EKG and labs obtained. Cardiac fellow notified and EKG interpreted. No acute ischemic changes noted. Primary team notified as well. HR 79, BP 135/83, RR 18, SpO2 99% on RA. Will continue to monitor. Problem: Knowledge Deficit Goal: Patient/family/caregiver demonstrates understanding of disease process, treatment plan, medications, and discharge instructions Outcome: Progressing Problem: Potential for Compromised Skin Integrity Goal: Skin Integrity is Maintained or Improved Outcome: Progressing Problem: Knowledge Deficit Goal: Patient/family/caregiver demonstrates understanding of disease process, treatment plan, medications, and discharge instructions Outcome: Progressing Problem: Potential for Compromised Skin Integrity Goal: Skin Integrity is Maintained or Improved Outcome: Progressing Goal: Nutritional status is improving Outcome: Progressing Problem: Urinary Incontinence Goal: Perineal skin integrity is maintained or improved Outcome: Progressing Problem: Problem Interventions Goal: Promote nutritional intake Outcome: Progressing Problem: Knowledge Deficit Goal: Patient/family/caregiver demonstrates understanding of disease process, treatment plan, medications, and discharge instructions Outcome: Progressing Problem: Potential for Compromised Skin Integrity Goal: Skin Integrity is Maintained or Improved Outcome: Progressing Goal: Nutritional status is improving Outcome: Progressing Problem: Urinary Incontinence Goal: Perineal skin integrity is maintained or improved Outcome: Progressing Problem: Problem Interventions Goal: Promote nutritional intake Outcome: Progressing Problem: Knowledge Deficit Goal: Patient/family/caregiver demonstrates understanding of disease process, treatment plan, medications, and discharge instructions Outcome: Progressing Problem: Potential for Compromised Skin Integrity Goal: Skin Integrity is Maintained or Improved Outcome: Progressing Goal: Nutritional status is improving Outcome: Progressing Problem: Problem Interventions Goal: Promote nutritional intake Outcome: Progressing Problem: Urinary Incontinence Goal: Perineal skin integrity is maintained or improved Outcome: Not Progressing Note: Pt refused assessment of pressure injuries/wounds this shift so [facility]. + bedhold will return - has woundVAC and ivab on hep gtt, not ready for discharge . Rosendo need completed by attending- TCC requested therapy see Wednesday for auth notes- patient is refusing to participate, if need ivab and has wound vac may be able to skill- IF not then will still return under LTC benefit . Facility is updated Problem: Knowledge Deficit Goal: Patient/family/caregiver demonstrates understanding of disease process, treatment plan, medications, and discharge instructions Outcome: Progressing Problem: Potential for Compromised Skin Integrity Goal: Skin Integrity is Maintained or Improved Outcome: Progressing Problem: Potential for Compromised Skin Integrity Goal: Nutritional status is improving Outcome: Progressing Problem: Urinary Incontinence Goal: Perineal skin integrity is maintained or improved Outcome: Progressing Problem: Problem Interventions Goal: Promote nutritional intake Outcome: Progressing [facility] would prefer to SKILL patient- LTC. + bedhold will return - has woundVAC and ivab on hep gtt, not ready for discharge , [facility] tasked to send clinicals facility is updated . Updated notes sent to [facility] per TCC request. Await review and response regarding ability to accept. TCC notified. Problem: Knowledge Deficit Goal: Patient/family/caregiver demonstrates understanding of disease process, treatment plan, medications, and discharge instructions Outcome: Not Progressing Problem: Potential for Compromised Skin Integrity Goal: Skin Integrity is Maintained or Improved Outcome: Not Progressing Goal: Nutritional status is improving Outcome: Not Progressing Problem: Urinary Incontinence Goal: Perineal skin integrity is maintained or improved Outcome: Not Progressing Problem: Problem Interventions Goal: Promote nutritional intake Outcome: Not Progressing Has dialysis at [facility], [facility].. Pt came to ER from dialysis due to hemoptysis. Had a trach removed 01/19. He is a bed hold at [facility]. They would like to skill him if able. Unable to tell me where he went to dialysis this am, asking facility. Referral placed to [facility] per TCC request. Await review and response regarding ability to accept. TCC notified. I have discussed with the patient the rationale for blood component transfusion; its benefits in treating or preventing fatigue, organ damage, or ; and its risk which includes mild transfusion reactions, rare risk of blood borne infection, or more serious but rare reactions. I have discussed the alternatives to transfusion, including the risk and consequences of not receiving transfusion. The patient had an opportunity to ask questions and had agreed to proceed with transfusion of blood components. documented in this encounter [facility] 03-05-2025 Note [facility] 03-05-2025 Hospital course Narrative Images from the original note were not included. Hospitalist Discharge Summary - [facility] Acute [facility] Jun Snyder : 1965 Admit date: 02/20/2025 Discharge date: 03/05/2025 Admitting Physician: Bettye Pierre MD Primary Care Physician: Leilani Troncoso Recommended Follow-up: [facility]ound Ostomy [address] [facility] [id number] [facility] [address] [facility] [phone] Call Call and schedule appointment in trauma clinic to have PEG tube removed at your convenience, if you wish to pursue. Disposition: Patient discharged in stable condition. Greater than 31 minutes spent discharging the patient and coming up with patient discharge plan. Follow up with Leilani Troncoso in 1-2 weeks as appropriate. Hospital Course: Jair is a 59 year old male with PMH below who presented with Chief Complaint of Hemoptysis. Chest CTA showed Diffuse, multifocal opacities and possible infiltrates, with peripheral distribution and internal bronchograms versus partial cavitation, which may represent nonspecific infectious or inflammatory process and pneumonitis. Started on IV antibiotics. Admitted for further evaluation and management. Started on IV heparin and home Coumadin held. Seen by Nephro for dialysis needs. Pulm seen for hemoptysis. Gen surg seen for patient request to remove PEG, done 02/23. ID seen for infection, recommended switch to augmentin 500mg q24 (to be taken after HD on HD days) until 03/10/25. Re-started home Coumadin while bridging with IV Heparin. Course was delayed due to prolonged time to therapeutic INR with history if GI bleed and intracranial hemorrhage requiring slow up-titrating. Medically stable for discharge Discharge Diagnoses: Acute, acute on chronic, unstable/uncontrolled chronic problems/diagnoses: Hemoptysis in the setting of bilateral cavitary lesion Klebsiella pneumonia with lung abscess Sacral wound Chronic anticoagulation due to mechanical valve replacement along with history of A-fib, Goal INR 2-3 ESRD on dialysis Severe malnutrition Hyperkalemia IGA nephropathy Subtherapeutic INR Endocarditis ruled out Stable chronic problems affecting care, new non-acute diagnoses: CAD s/p prior CABG HTN Intracranial hemorrhage Adult diet Regular Vitals: BP 140/83 (BP Location: Right arm, Patient Position: Lying) Pulse 86 Temp 36.2 C (97.1 F) (Temporal) Resp 20 Ht 5' 10 (1.778 m) Wt 134 lb (60.8 kg) SpO2 100% BMI 19.23 kg/m Pulse Ox: SpO2 Av.7 % Min: 96 % Max: 100 % Supplemental O2: O2 Flow Rate (L/min): 3 L/min GENERAL: calm, resting, somnolent CARDIOVASCULAR: regular, no extra heart sounds RESPIRATORY: good breath sounds, no wheezes ABDOMEN: non-tender EXTREMITIES: no LE wounds or acute pathology ANATOMY/TUBES/LINES: left arm fistula Recent Labs 03/03/25 0212 03/04/25 0156 03/05/25 0343 WBC 8.9 7.7 9.1 HGB 8.3* 7.7* 7.7* PLT 397 324 303 Recent Labs 03/04/25 0156 03/05/25 0343 03/05/25 0639 NA 141 136 136 K 5.1 6.6* 5.9* CL 103 102 102 CO2 27 25 26 BUN 18 26* 27* CREATININE 2.41* 3.03* 3.10* GLUCOSE 99 77 68* No results for input(s): AST, ALT, BILITOT, ALKPHOS in the last 72 hours. No lab exists for component: ALB No results found for: TRIG, HDL, LDLCALC, CHOL No results found for: PHART, PO2ART, [id number] Recent Labs 03/04/25 0156 03/04/25 0946 03/05/25 0343 INR 1.5* 1.6* 1.8* No results for input(s): DDIMER in the last 72 hours. No results found for: HGBA1C No results found for: TSH Urine Culture: No results found for this or any previous visit. Imaging: CTA chest angiogram w and/or wo IV contrast Result Date: 02/20/2025 Patient Name: JUN SNYDER : 1965 [id number] Exam Date/Time: 02/20/2025 19:01 Procedure: CT CHEST ANGIOGRAM W AND/OR WO IV CONTRAST Ordering Provider: THURMAN MEJGON Reason For Exam: hemoptysis, on thinners CTA CHEST WITH IV CONTRAST CLINICAL INDICATION: hemoptysis, on thinners. TECHNIQUE: CTA of the chest with IV contrast. Multiplanar reformations. 3-D image post-processing was performed on an independent workstation. Dose reduction was employed with automated exposure control. COMPARISON: 01 November 2024. FINDINGS: The main and bilateral proximal pulmonary arteries are normally opacified without apparent filling defects. Small, isolated filling defect noted in the right lower lobe subsegmental pulmonary artery (series 7:74). Mild cardiomegaly, stable. Median sternotomy wires and aortic valve repair again noted. No apparent aneurysm, pseudoaneurysm or aortic dissection. No significant lymph node enlargement or axillary adenopathy. Lungs show multifocal opacities and possible infiltrates, with peripheral distribution, most pronounced in the left apex. Small central lucencies may represent some internal air bronchograms versus possible cavitations. Small, bilateral pleural effusions. No apparent pneumothorax. Small gallstones again noted. Diminutive kidneys partially visualized. Percutaneous gastrostomy tube and IVC filter partially visualized. 1. Small, apparently isolated filling defect in right lower lobe subsegmental pulmonary artery of uncertain significance. Clinical correlation and follow-up as indicated. 2. No other, apparent large vessel or central pulmonary emboli. 3. Diffuse, multifocal opacities and possible infiltrates, with peripheral distribution and internal bronchograms versus partial cavitation, which may represent nonspecific infectious or inflammatory process and pneumonitis. Differential diagnosis also includes septic emboli and neoplastic or metastatic disease. Clinical correlation and follow-up to resolution advised. 4. Small bilateral pleural effusions. 5. Cholelithiasis, and diminutive [place] kidneys. Report Dictated on Electronically Signed By: Justo Milan MD Electronically Signed Date/Time: 02/20/2025 7:50 PM EDT Consults: IP CONSULT TO WOUND PREVENTION IP CONSULT TO NEPHROLOGY INPATIENT CONSULT TO WOUND CARE PROVIDERS IP CONSULT TO DIETITIAN IP CONSULT TO PULMONOLOGY INPATIENT CONSULT TO WOUND CARE PROVIDERS IP CONSULT TO INFECTIOUS DISEASES PHARMACY TO DOSE WARFARIN Discharge Medications: Medication List START taking these medications pantoprazole 40 MG EC tablet Commonly known as: ProtoNix Take 1 tablet (40 mg) by mouth 2 times daily (before meals). Do not crush, chew, or split. sevelamer carbonate 800 MG tablet Commonly known as: Renvela Take 1 tablet (800 mg) by mouth 3 times daily (with meals). Swallow tablet whole; do not crush, break, or chew. Replaces: sevelamer 800 MG tablet sodium zirconium cyclosilicate 5 g packet Commonly known as: Lokelma CHANGE how you take these medications melatonin 3 MG tablet What changed: medication strength how much to take how to take this reasons to take this metoprolol tartrate 25 MG tablet Commonly known as: Lopressor Take 1 tablet (25 mg) by mouth 2 times daily. What changed: how to take this QUEtiapine 25 MG tablet Commonly known as: SEROquel Take 1 tablet (25 mg) by mouth Nightly. What changed: how to take this CONTINUE taking these medications acetaminophen 325 MG tablet Commonly known as: Tylenol amoxicillin-clavulanate 500-125 MG tablet Commonly known as: Augmentin B complex-vitamin C-folic acid 1 MG tablet * bisacodyl 5 MG EC tablet Commonly known as: Dulcolax * bisacodyl 10 MG suppository Commonly known as: Dulcolax ipratropium-albuterol 0.5-2.5 mg/3 mL nebulizer solution Commonly known as: Duo-Neb Lidocaine 4 % patch Apply 1 patch topically daily. magnesium hydroxide 800 MG/5ML suspension Commonly known as: Milk of Magnesia naloxone in sodium chloride (PF) injection injection warfarin 1 MG tablet Commonly known as: Coumadin Take as directed. If you are unsure how to take this medication, talk to your nurse or doctor. Original instructions: Take as directed per After Visit Summary. * This list has 2 medication(s) that are the same as other medications prescribed for you. Read the directions carefully, and ask your doctor or other care provider to review them with you. STOP taking these medications midodrine 5 MG tablet Commonly known as: Proamatine oxyCODONE 5 MG immediate release tablet Commonly known as: Roxicodone sevelamer 800 MG tablet Commonly known as: Renagel Replaced by: sevelamer carbonate 800 MG tablet ASK your doctor about these medications oxyCODONE 5 MG immediate release tablet Commonly known as: Roxicodone Take 1 tablet (5 mg) by mouth every 12 hours as needed for moderate pain (4-6) or severe pain (7-10) for up to 3 days. Ask about: Should I take this medication? Where to Get Your Medications These medications were sent to [facility] [address] [place] [id number] [address] metoprolol tartrate 25 MG tablet pantoprazole 40 MG EC tablet QUEtiapine 25 MG tablet sevelamer carbonate 800 MG tablet You can get these medications from any pharmacy Bring a paper prescription for each of these medications oxyCODONE 5 MG immediate release tablet Signed: Anthony Hurtado DO 03/05/2025, 9:30 AM documented in this encounter [facility] 03-03-2025 Nurse Note Patient Name: Jun Snyder Patient : 1965 Acct: [id number] Date of Admission: 02/20/2025 [facility] Code Status: Full Code Allergies: Allergies[1] Diagnosis: Problem List[2] Treatment: Hemodilaysis 2:1 Priority: Routine Location: Acute Room Diabetic: No NPO: No Isolation Precautions: Dialysis Consent for Treatment Verified: Yes Blood Consent Verified: Not Applicable ICEBOAT: Identify, Consent, Equipment, HepB Status, Orders Complete, Access Verified, Timeliness (O2 and wall suction bedside) Second Clinician Verifying: Prince Sawyer Time out performed prior to access at 0937. Report Received from Primary RN at 0738/. Primary RN (First Initial, Last Name, Title): Joe SINCLAIR RN Incapacitated Nurse Education Completed: chandana sawyer rn HBsAg ONLY: Date Drawn: February 24, 2025 Results: Negative HBsAb: Date Drawn: February 24, 2025 Results: Susceptible <10 Order Dialyzer: Nipro Na+ Modeling: Not Applicable Dialysate Temperature (C): 36 Blood Flow Rate (BFR): 350 Dialysate Flow Rate (DFR): 600 Access to be Utilized Access: AVF Location: Upper Extremity Side: Left Needle gauge: 16 + Bruit/Thrill: Yes First Use X-ray Verified: Not Applicable OK to use line order: Not Applicable Site Assessment: Signs and Symptoms of Infection/Inflammation: None If yes: Not Applicable Dressing: na Site Prep: Medical Aseptic Technique Dressing Changed this Treatment: na If yes, by whom: na Date of Last Dressing Change: na [id number]?: na Red Alcohol Caps in place?: na Gauze Dressing?: na Non-Dialysis Use?: No Comment: Flows: Good and Patent If access problem, who was notified: Pre and Post-Assessment Patient Vitals for the past 8 hrs: Level of Consciousness Oriented X Heart Rhythm O2 Device Bilateral Breath Sounds Skin Color Skin Condition/Temp Abdomen Inspection Bowel Sounds (All Quadrants) RUE Edema LUE Edema RLE Edema LLE Edema 03/03/25 0827 -- -- -- -- Clear Ecchymosis Warm;Dry Soft;Nondistended Active None None None None 03/03/25 0938 Alert (0) 3 Regular Nasal cannula Clear Ecchymosis Warm;Dry;No swelling Soft Active -- -- -- -- 03/03/25 1300 Alert (0) 3 Regular Nasal cannula Clear Ecchymosis -- -- -- -- -- -- -- Labs Lab Results Component Value Date/Time WBC 8.9 03/03/2025211 HGB 8.3 (L) 03/03/2025211 HGB 9.4 11/11/2024 0230 HCT 27.8 (L) 03/03/2025211 PLT 397 03/03/2025211 NA 140 03/03/2025211 K 6.2 (HH) 03/03/2025211 CL 101 03/03/2025211 CO2 28 03/03/2025211 BUN 26 (H) 03/03/2025211 CREATININE 3.21 (H) 03/03/2025 021 CREATININE 9.99 (H) 10/27/2019 0545 CALCIUM 9.8 03/03/2025 0212 PHOS 2.6 02/23/2025 0032 IV Drips and Rate/Dose Continuous Meds[3] Safety - Before each treatment: Dialysis Machine No.: [id number] RO Machine Number: [id number] Dialyzer Lot No.: [id number] Tubing Lot Number: [id number] All Connections Secure: Yes Venous Parameters Set: Yes Arterial Parameters Set: Yes NS Bag: Yes Saline Line Double Clamped: Yes Dialyzer: Nipro Prime Volume (mL): 200 mL RO Machine Number: [id number] RO Machine Log Sheet Completed: Yes Machine Alarm Self Test: Completed, Passed (03/03/25739) Air Foam Detector: Tested, Proper Function, pH Reading Extracorporeal Circuit Tested for Integrity: Yes Machine Conductivity: 13.7 Manual Conductivity: 13.6 Manual Ph: 7 Bleach Test (Neg): Yes Bath Temperature: 36 C (96.8 F) Conductivity Meter Serial #: [id number] Machine Functioning Alarm Free? Yes Dialysis Bath: K+ (Potassium): 2 Ca+ (Calcium): 2.5 Na+ (Sodium): 137 HCO3 (Bicarb): 35 Bicarbonate Concentrate Lot No.: [id number] Acid Concentrate Lot No.: [id number] Chlorine Testing - Before each treatment and every 4 hours: Time On: 0942 Time Off: 1242 Treatment Goal: 2L Weight Height: 177.8 cm (5' 10) (02/23/25 1413) Weight: 60.8 kg (134 lb) (02/23/25 1413) BMI (Calculated): 19.23 (02/23/25 1413) 1st check: less than 0.1 ppm at: 0845 2nd check: less than 0.1 ppm at: 1145 3rd check: Not Applicable (if greater than 0.1 ppm, then check every 30 minutes from secondary) Access Flows and Pressures Patient Vitals for the past 8 hrs: Blood Flow Rate (mL/min) Ultrafiltration Rate (ml/hr) Arterial Pressure (mmHg) Venous Pressure (mmHg) TMP DFR Access Visible Intra-Hemodialysis Comments 03/03/25 0942 200 mL/min 830 ml/hr 10 mmHg 80 mmHg 70 600 Yes Tx initiated call light 03/03/25 0944 350 mL/min 830 ml/hr -40 mmHg 140 mmHg 90 600 Yes Bfr increased 03/03/25 1000 350 mL/min 830 ml/hr -50 mmHg 150 mmHg 90 600 Yes Lines secure rmv 280 03/03/25 1015 350 mL/min 830 ml/hr -50 mmHg 160 mmHg 80 600 Yes pt resting, removed 496 03/03/25 1030 350 mL/min 830 ml/hr -50 mmHg 160 mmHg 80 600 Yes pt alert, stable, removed 710 03/03/25 1045 350 mL/min 830 ml/hr -60 mmHg 170 mmHg 90 600 Yes pt resting, removed 900, lines secure, 03/03/25 1100 350 mL/min 830 ml/hr -60 mmHg 160 mmHg 90 600 Yes pt sleeping, removed 1097 03/03/25 1115 350 mL/min 830 ml/hr -60 mmHg 170 mmHg 40 600 Yes pt alert, nremoved 1296 03/03/25 1130 350 mL/min 830 ml/hr -60 mmHg 170 mmHg 80 600 Yes pt sleeping, lines secure,r emoved 1497 03/03/25 1145 350 mL/min 830 ml/hr -60 mmHg 180 mmHg 90 600 Yes pt alert, removed 1722 03/03/25 1200 350 mL/min 830 ml/hr -70 mmHg 180 mmHg 90 600 Yes pt resting, removed 1927 03/03/25 1215 350 mL/min 830 ml/hr -70 mmHg 170 mmHg 80 600 Yes pt sleeping, removed 2144 03/03/25 1230 350 mL/min 43865 ml/hr -70 mmHg 170 mmHg 80 600 Yes pt resting, removed [id number] 03/03/25 1242 -- -- -- -- -- -- -- Tx completed rmv 2500 Vital Signs Patient Vitals for the past 24 hrs: BP Temp Temp src Pulse Resp SpO2 03/03/25 1300 153/93 37 C (98.6 F) -- 87 -- -- 03/03/25 1242 136/70 -- -- 85 -- -- 03/03/25 1230 154/88 -- -- 87 -- -- 03/03/25 1215 155/91 -- -- 85 -- -- 03/03/25 1200 152/94 -- -- 94 -- -- 03/03/25 1145 (!) 156/101 -- -- 94 -- -- 03/03/25 1130 134/88 -- -- 92 -- -- 03/03/25 1115 160/95 -- -- 95 -- -- 03/03/25 1100 154/99 -- -- 92 -- -- 03/03/25 1045 148/82 -- -- 92 -- -- 03/03/25 1030 (!) 162/56 -- -- 94 -- -- 03/03/25 1015 148/92 -- -- 92 -- -- 03/03/25 1000 155/96 -- -- 92 -- -- 03/03/25 0944 147/87 -- -- 87 -- -- 03/03/25 0942 147/84 -- -- 85 -- -- 03/03/25 0938 155/91 37.1 C (98.7 F) -- 85 18 100 % 03/03/25 0755 -- -- -- -- -- 98 % 03/03/25 0745 140/80 -- -- 86 20 99 % 03/03/25 0640 138/88 36.4 C (97.5 F) Temporal 88 18 99 % 03/03/25 0213 140/81 36.3 C (97.4 F) Temporal 83 16 93 % 03/02/25 2118 (!) 162/97 36.2 C (97.1 F) Temporal 89 18 100 % 03/02/25 1806 154/86 36.5 C (97.7 F) Temporal 90 15 100 % 03/02/25 1457 153/89 36.3 C (97.4 F) Temporal 92 18 100 % Post-Dialysis Arterial Catheter Locking Solution: Not Applicable Venous Catheter Locking Solution: Not Applicable Post-Treatment Procedures: Blood returned, Access bleeding time < 10 minutes Machine Disinfection Process: Exterior Machine Disinfection Rinseback Volume (mL): 300 mL Total Liters Processed (L/min): 61.8 L/min Dialyzer Clearance: Lightly streaked Hemodialysis Intake (ml): 500 ml Hemodialysis Output (ml): 2500 ml NET Removed (ml): 2000 ml Tolerated Treatment: Good Patient Response to Treatment: stable Physician Notified: No Patient Disposition: Return to room Charge: $ IP Hemodialysis Charge: Hemodialysis Provider Notification Provider Notification RETIRED Reason for Communication: Evaluate (intermittent shortness of breath and chest tightness, 98% on room air, asked to be put in 3L, EKG and troponins done overnight) Provider Name: Dr. Ramón Romano Provider Role: Hospitalist Method of Communication: Secure chat Response: Waiting for response Notification Date: 02/26/25 Notification Time: 1450 RETIRED Reason for Communication: Evaluate (intermittent shortness of breath and chest tightness, 98% on room air, asked to be put in 3L, EKG and troponins done overnight) Provider Role: Hospitalist Method of Communication: Secure chat Response: Waiting for response Notification Time: 1450 Handoff complete and report given to Primary RN at 1305. Primary RN (First Initial, Last Name, Title): Joe SINCLAIR RN Education Person Educated: Patient Knowledge Base: Substantial Barriers to Learning?: None Preferred method of Learning: Oral Topic(s): call light, Access Care, Signs and Symptoms of Infection, Fluid Management, and Procedural Teaching Tools: Explanation Response to Education: Verbalized Understanding [1] Allergies Allergen Reactions Lisinopril Swelling and Angioedema [2] Patient Active Problem List Diagnosis Anemia Paroxysmal A-fib ([facility]) ([facility]) HTN (hypertension) ESRD on hemodialysis ([facility]) ([facility]) 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 Diverticulosis Nonrheumatic aortic valve stenosis Calcification of abdominal aorta ([facility]) Missed vaccination due to patient refusal Tobacco abuse Alcohol use disorder in remission Atrial flutter, unspecified type ([facility]) RSV (acute bronchiolitis due to respiratory syncytial virus) Aortic stenosis Upper GI bleed S/P AVR Acute hypoxic respiratory failure ([facility]) Acute encephalopathy Pneumoperitoneum Gastric ulceration Severe malnutrition ([facility]) ([facility]) Pleural effusion Peritonitis due to fungus ([facility]) History of abdominal surgery Leg DVT (deep venous thromboembolism), acute, left ([facility]) 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, 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 of skin ([facility]) 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[facility]) Leukocytosis Decubitus ulcer of sacral region, unstageable ([facility]) Pneumonia of both lungs due to methicillin susceptible Staphylococcus aureus (MSSA) ([facility]) Sacral osteomyelitis ([facility]) ([facility]) Acute respiratory failure with hypoxia ([facility]) [J96.01] Tracheostomy care ([facility]) [Z43.0] 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[facility]) rn long term care (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 Complication of tracheostomy (CMS/HCC) ([facility]) BRBPR (bright red blood per rectum) Hemoptysis [3] heparin, 5-30 Units/kg/hr, Last Rate: 20 Units/kg/hr (03/03/25 07) In patient's chart, d/t patient being on his call light excessively and finally telling me he wants something for pain. Please see eMAR for administration Patient Name: Jun Snyder Patient : 1965 Acct: [id number] Date of Admission: 02/20/2025 [facility] Code Status: Full Code Allergies: Allergies[1] Diagnosis: Problem List[2] Treatment: Hemodilaysis 2:1 Priority: Routine Location: Acute Room Diabetic: No NPO: No Isolation Precautions: Dialysis Consent for Treatment Verified: Yes Blood Consent Verified: Not Applicable ICEBOAT: Identify, Consent, Equipment, HepB Status, Orders Complete, Access Verified, Timeliness (o2 and suction functional @ bedside) Second Clinician Verifying: Hector Hutchison RN Time out performed prior to access at 0828. Report Received from Primary RN at 0727. Primary RN (First Initial, Last Name, Title): Zulma GRIMALDO RN Incapacitated Nurse Education Completed: gemma hutchison rn HBsAg ONLY: Date Drawn: February 24, 2025 Results: Negative HBsAb: Date Drawn: February 24, 2025 Results: Susceptible <10 Order Dialyzer: Nipro Na+ Modeling: Not Applicable Dialysate Temperature (C): 36 Blood Flow Rate (BFR): 350 Dialysate Flow Rate (DFR): 600 Access to be Utilized Access: AVF Location: Upper Extremity Side: Left Needle gauge: 16 + Bruit/Thrill: Yes First Use X-ray Verified: Not Applicable OK to use line order: Yes Site Assessment: Signs and Symptoms of Infection/Inflammation: None If yes: Not Applicable Dressing: na Site Prep: Medical Aseptic Technique Dressing Changed this Treatment: na If yes, by whom: na Date of Last Dressing Change: na [address]?: na Red Alcohol Caps in place?: na Gauze Dressing?: na Non-Dialysis Use?: No Comment: Flows: Good and Patent If access problem, who was notified: Pre and Post-Assessment Patient Vitals for the past 8 hrs: Level of Consciousness Heart Rhythm O2 Device Bilateral Breath Sounds Skin Color Skin Condition/Temp Abdomen Inspection Bowel Sounds (All Quadrants) RUE Edema LUE Edema RLE Edema LLE Edema 03/01/25 0515 -- -- -- Clear Ecchymosis Warm;Dry Soft;Flat;Nondistended;Other (Comment) Active None None None None 03/01/25 0825 Alert (0) Regular Nasal cannula Clear -- Warm;Dry Soft Audible -- -- -- -- 03/01/25 1132 Alert (0) Regular -- -- -- -- -- -- -- -- -- -- Labs Lab Results Component Value Date/Time WBC 7.5 03/01/2025 0003 HGB 8.0 (L) 03/01/2025 0003 HGB 9.4 11/11/2024 0230 HCT 26.9 (L) 03/01/2025 0003 PLT 306 03/01/2025 0003 NA 138 03/01/2025 0003 K 5.8 (H) 03/01/2025 0003 CL 102 03/01/2025 0003 CO2 23 03/01/2025 0003 BUN 28 (H) 03/01/2025 0003 CREATININE 3.73 (H) 03/01/2025 0003 CREATININE 9.99 (H) 10/27/2019 0545 CALCIUM 9.6 03/01/2025 0003 PHOS 2.6 02/23/2025 0032 IV Drips and Rate/Dose Continuous Meds[3] Safety - Before each treatment: Dialysis Machine No.: [id number] RO Machine Number: [id number] Dialyzer Lot No.: [id number] Tubing Lot Number: [id number] All Connections Secure: Yes Venous Parameters Set: Yes Arterial Parameters Set: Yes NS Bag: Yes Saline Line Double Clamped: Yes Dialyzer: Nipro Prime Volume (mL): 200 mL RO Machine Number: [id number] RO Machine Log Sheet Completed: Yes Machine Alarm Self Test: Completed, Passed (03/01/25 07) Air Foam Detector: Tested, Proper Function, pH Reading Extracorporeal Circuit Tested for Integrity: Yes Machine Conductivity: 13.6 Manual Conductivity: 13.5 Manual Ph: 7.2 Bleach Test (Neg): Yes Bath Temperature: 36 C (96.8 F) Conductivity Meter Serial #: [id number] Machine Functioning Alarm Free? Yes Dialysis Bath: K+ (Potassium): 3 Ca+ (Calcium): 2.5 Na+ (Sodium): 137 HCO3 (Bicarb): 35 Bicarbonate Concentrate Lot No.: [id number] Acid Concentrate Lot No.: [id number] Chlorine Testing - Before each treatment and every 4 hours: Time On: 0832 Time Off: 1132 Treatment Goal: 2L Weight Height: 177.8 cm (5' 10) (02/23/25 1413) Weight: 60.8 kg (134 lb) (02/23/25 141) BMI (Calculated): 19.23 (02/23/25 1413) 1st check: less than 0.1 ppm at: 0545 2nd check: less than 0.1 ppm at: 0845 3rd check: Not Applicable (if greater than 0.1 ppm, then check every 30 minutes from secondary) Access Flows and Pressures Patient Vitals for the past 8 hrs: Blood Flow Rate (mL/min) Ultrafiltration Rate (ml/hr) Arterial Pressure (mmHg) Venous Pressure (mmHg) TMP DFR Access Visible Intra-Hemodialysis Comments 03/01/25 0825 -- -- -- -- -- -- Yes pt aware of call light within reach and educated on use of call light 03/01/25 0832 200 mL/min 830 ml/hr -30 mmHg 50 mmHg 80 600 Yes tx iniated lines secured pt stable 03/01/25 0833 350 mL/min 830 ml/hr -80 mmHg 190 mmHg 70 600 Yes bfr increased 03/01/25 0859 350 mL/min 830 ml/hr -100 mmHg 210 mmHg 60 600 Yes pt resting, removed 120 03/01/25 0906 350 mL/min 830 ml/hr -110 mmHg 200 mmHg 70 600 Yes pt sleeping, removed 468 03/01/25 0915 350 mL/min 830 ml/hr -120 mmHg 200 mmHg 70 600 Yes pt resting, removed 601 03/01/25 0930 350 mL/min 830 ml/hr -120 mmHg 200 mmHg 70 600 Yes pt sleeping, removed 819 03/01/25 0945 350 mL/min 830 ml/hr -120 mmHg 200 mmHg 70 600 Yes pt resting, removed 1052 03/01/25 1000 350 mL/min 830 ml/hr -120 mmHg 200 mmHg 70 600 Yes pt remains asleep, removed 1205 03/01/25 1015 350 mL/min 830 ml/hr -120 mmHg 200 mmHg 70 600 Yes pt sleeping, lines secure, removed 1423 03/01/25 1030 350 mL/min 830 ml/hr -120 mmHg 210 mmHg 70 600 Yes pt nresting, removed 16403/01/25 1045 350 mL/min 840 ml/hr -120 mmHg 190 mmHg 70 600 Yes pt sleeping, removed 185103/01/25 1100 350 mL/min 840 ml/hr -120 mmHg 20 mmHg 70 600 Yes pt sleeping, removed 205603/01/25 1115 350 mL/min 840 ml/hr -120 mmHg 190 mmHg 70 600 Yes pt resting, removed 225403/01/25 1132 -- -- -- -- -- -- -- tx dcd, removed 2500 Vital Signs Patient Vitals for the past 24 hrs: BP Temp Temp src Pulse Resp SpO2 03/01/25 1139 143/88 -- -- 86 -- -- 03/01/25 1132 145/85 -- -- 85 -- -- 03/01/25 1115 153/83 -- -- 87 -- -- 03/01/25 1100 148/82 -- -- 88 -- -- 03/01/25 1045 144/82 -- -- 85 -- -- 03/01/25 1030 148/77 -- -- 87 -- -- 03/01/25 1015 140/86 -- -- 85 -- -- 03/01/25 1000 147/85 -- -- 85 -- -- 03/01/25 0945 150/85 -- -- 87 -- -- 03/01/25 0930 158/85 -- -- 86 -- -- 03/01/25 0915 132/89 -- -- 84 -- -- 03/01/25 0906 158/94 -- -- 86 -- -- 03/01/25 0859 155/87 -- -- 83 -- -- 03/01/25 0833 152/90 -- -- 81 -- -- 03/01/25 0832 154/88 -- -- 80 -- -- 03/01/25 0825 157/90 37.6 C (99.7 F) -- 83 16 99 % 03/01/25 0540 150/92 36.4 C (97.6 F) Temporal 78 18 100 % 03/01/25 0336 142/89 36.9 C (98.5 F) Temporal 81 18 100 % 02/28/25 2241 146/88 36.7 C (98 F) Temporal 82 18 98 % 02/28/25 1801 131/90 36.7 C (98 F) Temporal 85 12 100 % 02/28/25 1345 151/88 36.1 C (96.9 F) Temporal 84 16 98 % Post-Dialysis Arterial Catheter Locking Solution: Not Applicable Venous Catheter Locking Solution: Not Applicable Post-Treatment Procedures: Blood returned, Access bleeding time < 10 minutes Machine Disinfection Process: Exterior Machine Disinfection Rinseback Volume (mL): 300 mL Total Liters Processed (L/min): 59.6 L/min Dialyzer Clearance: Lightly streaked Hemodialysis Intake (ml): 500 ml Hemodialysis Output (ml): 2500 ml NET Removed (ml): 2000 ml Tolerated Treatment: Good Patient Response to Treatment: stable Physician Notified: No Patient Disposition: Return to room Charge: $ IP Hemodialysis Charge: Hemodialysis Provider Notification Provider Notification RETIRED Reason for Communication: Evaluate (intermittent shortness of breath and chest tightness, 98% on room air, asked to be put in 3L, EKG and troponins done overnight) Provider Name: Dr. Ramón Romano Provider Role: Hospitalist Method of Communication: Secure chat Response: Waiting for response Notification Date: 02/26/25 Notification Time: 1450 RETIRED Reason for Communication: Evaluate (intermittent shortness of breath and chest tightness, 98% on room air, asked to be put in 3L, EKG and troponins done overnight) Provider Role: Hospitalist Method of Communication: Secure chat Response: Waiting for response Notification Time: 1450 Handoff complete and report given to Primary RN at 1144. Primary RN (First Initial, Last Name, Title): Zulma GRIMALDO RN Education Person Educated: Patient Knowledge Base: Substantial Barriers to Learning?: None Preferred method of Learning: Oral Topic(s): call light, Access Care, Signs and Symptoms of Infection, Fluid Management, and Procedural Teaching Tools: Explanation Response to Education: Verbalized Understanding [1] Allergies Allergen Reactions Lisinopril Swelling and Angioedema [2] Patient Active Problem List Diagnosis Anemia Paroxysmal A-fib ([facility]) ([facility]) HTN (hypertension) ESRD on hemodialysis ([facility]) ([facility]) 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 Diverticulosis Nonrheumatic aortic valve stenosis Calcification of abdominal aorta ([facility]) Missed vaccination due to patient refusal Tobacco abuse Alcohol use disorder in remission Atrial flutter, unspecified type ([facility]) RSV (acute bronchiolitis due to respiratory syncytial virus) Aortic stenosis Upper GI bleed S/P AVR Acute hypoxic respiratory failure ([facility]) Acute encephalopathy Pneumoperitoneum Gastric ulceration Severe malnutrition ([facility]) ([facility]) Pleural effusion Peritonitis due to fungus ([facility]) History of abdominal surgery Leg DVT (deep venous thromboembolism), acute, left ([facility]) 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, 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 of skin ([facility]) 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[facility]) Leukocytosis Decubitus ulcer of sacral region, unstageable ([facility]) Pneumonia of both lungs due to methicillin susceptible Staphylococcus aureus (MSSA) ([facility]) Sacral osteomyelitis ([facility]) ([facility] Acute respiratory failure with hypoxia ([facility]) [J96.01] Tracheostomy care ([facility]) [Z43.0] 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[facility]) rn long term care (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 Complication of tracheostomy ([facility]) ([facility]) BRBPR (bright red blood per rectum) Hemoptysis [3] heparin, 5-30 Units/kg/hr, Last Rate: 18 Units/kg/hr (03/01/25 0729) This RN walked into pt's room and noticed a running heat gun that was plugged into the wall. Pt has been stating the room is too cold, and that maintenance would not fix the problem. This RN notified nurse manger of the heat gun, the patients growing concerns of the temperature in the room, and the patients agitation. Nurse manager flight operations notified maintenance of the problem, and also spoke with patient regarding his use of the heat gun. Pt was told he is unable to use it while in the hospital. Pt was agreeable to this, and stated he bought it to use for his glasses, but he would not use it again. Pt was also notified that the nurses and nurses aides cannot leave the floor to belt picker his packages, and pt was agreeable to this as well. Patient Name: Jun Snyder Patient : 1965 Acct: [id number] Date of Admission: 02/20/2025 [facility] Code Status: Full Code Allergies: Allergies[1] Diagnosis: Problem List[2] Treatment: Hemodilaysis 2:1 Priority: Routine Location: Acute Room Diabetic: No NPO: No Isolation Precautions: Dialysis Consent for Treatment Verified: Yes Blood Consent Verified: Not Applicable ICEBOAT: Identify, Consent, Equipment, HepB Status, Orders Complete, Access Verified, Timeliness (O2 and wall suciton bedside) Second Clinician Verifying: Prince Sawyer Time out performed prior to access at 0805. Report Received from Primary RN at 0746. Primary RN (First Initial, Last Name, Title): Nadja Martinez Rn Incapacitated Nurse Education Completed: nc HBsAg ONLY: Date Drawn: February 24, 2025 Results: Negative HBsAb: Date Drawn: February 24, 2025 Results: Susceptible <10 Order Dialyzer: Nipro Na+ Modeling: Not Applicable Dialysate Temperature (C): 36 Blood Flow Rate (BFR): 350 Dialysate Flow Rate (DFR): 600 Access to be Utilized Access: AVF Location: Upper Extremity Side: Left Needle gauge: 16 + Bruit/Thrill: Yes First Use X-ray Verified: Not Applicable OK to use line order: Not Applicable Site Assessment: Signs and Symptoms of Infection/Inflammation: None If yes: Not Applicable Dressing: na Site Prep: Medical Aseptic Technique Dressing Changed this Treatment: na If yes, by whom: na Date of Last Dressing Change: na [address]?: na Red Alcohol Caps in place?: na Gauze Dressing?: na Non-Dialysis Use?: No Comment: Flows: Good If access problem, who was notified: Pre and Post-Assessment Patient Vitals for the past 8 hrs: Level of Consciousness Oriented X Heart Rhythm O2 Device Bilateral Breath Sounds Skin Color Skin Condition/Temp Abdomen Inspection Bowel Sounds (All Quadrants) 02/27/25 0757 -- -- -- -- Diminished Ecchymosis -- -- -- 02/27/25 0840 Alert (0) 3 Regular None (Room air) Clear [place] Warm;Dry;No swelling Soft Active 02/27/25 1202 Alert (0) 3 Regular None (Room air) Clear [place] Warm Soft -- 02/27/25 1240 -- -- -- -- Diminished Ecchymosis -- -- -- Labs Lab Results Component Value Date/Time WBC 7.9 02/27/2025 0010 HGB 8.6 (L) 02/27/2025 0010 HGB 9.4 11/11/2024 0230 HCT 28.8 (L) 02/27/2025 0010 PLT 302 02/27/2025 0010 NA 135 (L) 02/23/2025 0032 K 4.1 02/23/2025 0032 CL 99 02/23/2025 0032 CO2 25 02/23/2025 0032 BUN 21 02/23/2025 0032 CREATININE 2.78 (H) 02/23/2025 0032 CREATININE 9.99 (H) 10/27/2019 0545 CALCIUM 9.2 02/23/2025 0032 PHOS 2.6 02/23/2025 0032 IV Drips and Rate/Dose Continuous Meds[3] Safety - Before each treatment: Dialysis Machine No.: [id number] RO Machine Number: [id number] Dialyzer Lot No.: [id number] Tubing Lot Number: [id number] All Connections Secure: Yes Venous Parameters Set: Yes Arterial Parameters Set: Yes NS Bag: Yes Saline Line Double Clamped: Yes Dialyzer: Nipro Prime Volume (mL): 200 mL RO Machine Number: [id number] RO Machine Log Sheet Completed: Yes Machine Alarm Self Test: Completed, Passed (02/27/25 07) Air Foam Detector: Tested, Proper Function, pH Reading Extracorporeal Circuit Tested for Integrity: Yes Machine Conductivity: 13.7 Manual Conductivity: 143.6 Manual Ph: 7 Bleach Test (Neg): Yes Bath Temperature: 36 C (96.8 F) Conductivity Meter Serial #: [id number] Machine Functioning Alarm Free? Yes Dialysis Bath: K+ (Potassium): 3 Ca+ (Calcium): 2.5 Na+ (Sodium): 137 HCO3 (Bicarb): 35 Bicarbonate Concentrate Lot No.: [id number] Acid Concentrate Lot No.: [id number] Chlorine Testing - Before each treatment and every 4 hours: Time On: 0843 Time Off: 1143 Treatment Goal: 2L Weight Height: 177.8 cm (5' 10) (02/23/25 141) Weight: 60.8 kg (134 lb) (02/23/25 141) BMI (Calculated): 19.23 (02/23/25 141) 1st check: less than 0.1 ppm at: 0845 2nd check: less than 0.1 ppm at: na 3rd check: Not Applicable (if greater than 0.1 ppm, then check every 30 minutes from secondary) Access Flows and Pressures Patient Vitals for the past 8 hrs: Blood Flow Rate (mL/min) Ultrafiltration Rate (ml/hr) Arterial Pressure (mmHg) Venous Pressure (mmHg) TMP DFR Access Visible Intra-Hemodialysis Comments 02/27/25 0843 200 mL/min 830 ml/hr 10 mmHg 0 mmHg 30 600 Yes Tx initiated call light within reach 02/27/25 0847 350 mL/min 830 ml/hr -30 mmHg 30 mmHg 30 600 Yes Bfr increased 02/27/25 0900 350 mL/min 830 ml/hr -30 mmHg 110 mmHg 90 600 Yes Pt stable alert. Ptb on phone. Rmvd 248. 02/27/25 0917 350 mL/min 830 ml/hr -30 mmHg 110 mmHg 90 600 Yes Pt sleeping , cstable. Rmvd 456. 02/27/25 0935 350 mL/min 830 ml/hr -30 mmHg 130 mmHg 90 600 Yes Pt alert stable. Rmvd 728. Pt placed on 3 ltr o2. 02/27/25 0945 350 mL/min 830 ml/hr -250 mmHg 120 mmHg 90 600 Yes Pt Stable rmvd 893. Watching tv. 02/27/25 1015 350 mL/min 830 ml/hr -40 mmHg 120 mmHg 902 600 Yes Pt alert on phone. Rmvde 1263. Liones secure. Call light in reach. 02/27/25 1030 350 mL/min 830 ml/hr -40 mmHg 110 mmHg 90 600 Yes pt resting rmv 1449 02/27/25 1045 350 mL/min 840 ml/hr -40 mmHg 120 mmHg 100 600 Yes pt stable rmv 1678 02/27/25 1100 350 mL/min 840 ml/hr -40 mmHg 120 mmHg 100 600 Yes Pt sleeping rmvd 1945. Stable. 02/27/25 1115 350 mL/min 840 ml/hr -40 mmHg 120 mmHg 100 600 Yes Pt stable rmvd 2125. restijng. 02/27/25 1130 350 mL/min 840 ml/hr -40 mmHg 130 mmHg 80 600 Yes Pt alert watching tv. Rmvd 2335. Stable. 02/27/25 1143 -- -- -- -- -- -- -- Tx completed rmv 2500 Vital Signs Patient Vitals for the past 24 hrs: BP Temp Temp src Pulse Resp SpO2 02/27/25 1242 135/80 36.4 C (97.5 F) Temporal 82 13 99 % 02/27/25 1202 136/87 36.8 C (98.2 F) -- 80 -- -- 02/27/25 1143 129/79 -- -- 80 -- -- 02/27/25 1130 143/79 -- -- 81 -- -- 02/27/25 1115 140/59 -- -- 84 -- -- 02/27/25 1100 135/68 -- -- 84 -- -- 02/27/25 1045 137/84 -- -- 81 -- -- 02/27/25 1030 151/82 -- -- 79 -- -- 02/27/25 1015 137/71 -- -- 80 -- -- 02/27/25 0945 149/89 -- -- 83 -- -- 02/27/25 0935 144/71 -- -- 77 -- -- 02/27/25 0917 152/83 -- -- 78 -- -- 02/27/25 0900 149/89 -- -- 82 -- -- 02/27/25 0847 144/83 -- -- 70 -- -- 02/27/25 0843 148/82 -- -- 79 -- -- 02/27/25 0840 137/83 36.8 C (98.3 F) -- 78 18 97 % 02/27/25 0548 144/84 36.4 C (97.6 F) Temporal 78 18 100 % 02/27/25 0252 141/86 36.3 C (97.3 F) Temporal 75 19 100 % 02/26/25 2154 135/73 36.3 C (97.4 F) Temporal 81 19 94 % 02/26/25 1745 151/83 36.5 C (97.7 F) Temporal 76 13 100 % 02/26/25 1423 145/89 36.9 C (98.5 F) Temporal 78 15 100 % Post-Dialysis Arterial Catheter Locking Solution: Not Applicable Venous Catheter Locking Solution: Not Applicable Post-Treatment Procedures: Blood returned, Access bleeding time < 10 minutes Machine Disinfection Process: Exterior Machine Disinfection Rinseback Volume (mL): 300 mL Total Liters Processed (L/min): 61.8 L/min Dialyzer Clearance: Lightly streaked Hemodialysis Intake (ml): 500 ml Hemodialysis Output (ml): 2500 ml NET Removed (ml): 2000 ml Tolerated Treatment: Good Patient Response to Treatment: stable Physician Notified: No Patient Disposition: Return to room Charge: $ IP Hemodialysis Charge: Hemodialysis Provider Notification Provider Notification RETIRED Reason for Communication: Evaluate (intermittent shortness of breath and chest tightness, 98% on room air, asked to be put in 3L, EKG and troponins done overnight) Provider Name: Dr. Ramón Romano Provider Role: Hospitalist Method of Communication: Secure chat Response: Waiting for response Notification Date: 02/26/25 Notification Time: 1450 RETIRED Reason for Communication: Evaluate (intermittent shortness of breath and chest tightness, 98% on room air, asked to be put in 3L, EKG and troponins done overnight) Provider Role: Hospitalist Method of Communication: Secure chat Response: Waiting for response Notification Time: 1450 Handoff complete and report given to Primary RN at 1200. Primary RN (First Initial, Last Name, Title): Nadja Martinez RN Education Person Educated: Patient Knowledge Base: Minimal Barriers to Learning?: None Preferred method of Learning: Oral Topic(s): call light, Access Care, Signs and Symptoms of Infection, and Fluid Management Teaching Tools: Demonstration Response to Education: Verbalized Understanding [1] Allergies Allergen Reactions Lisinopril Swelling and Angioedema [2] Patient Active Problem List Diagnosis Anemia Paroxysmal A-fib ([facility]) ([facility]) HTN (hypertension) ESRD on hemodialysis ([facility]) ([facility]) 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 Diverticulosis Nonrheumatic aortic valve stenosis Calcification of abdominal aorta ([facility]) Missed vaccination due to patient refusal Tobacco abuse Alcohol use disorder in remission Atrial flutter, unspecified type ([facility]) RSV (acute bronchiolitis due to respiratory syncytial virus) Aortic stenosis Upper GI bleed S/P AVR Acute hypoxic respiratory failure ([facility]) Acute encephalopathy Pneumoperitoneum Gastric ulceration Severe malnutrition ([facility]) ([facility]) Pleural effusion Peritonitis due to fungus ([facility]) History of abdominal surgery Leg DVT (deep venous thromboembolism), acute, left ([facility]) 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, 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 of skin ([facility]) 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[facility]) Leukocytosis Decubitus ulcer of sacral region, unstageable ([facility]) Pneumonia of both lungs due to methicillin susceptible Staphylococcus aureus (MSSA) ([facility]) Sacral osteomyelitis ([facility]) ([facility]) Acute respiratory failure with hypoxia ([facility]) [J96.01] Tracheostomy care ([facility]) [Z43.0] 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[facility]) senior living (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 Complication of tracheostomy ([facility]) ([facility]) BRBPR (bright red blood per rectum) Hemoptysis [3] heparin, 5-30 Units/kg/hr, Last Rate: 18 Units/kg/hr (02/27/25 0722) Pt called this RN into room and immediately upon entering room, pt started using swear words at RN stating I need to fix the temperature in this room, someone messed with the thermostat. I've been waiting 1 week for maintenance to come fix my heat. I stated we can make a phone call and request for them to come to the room. Pt then stated You work here you should know how to fix your rooms. I told pt that I will call and then asked if I could get him a warm blanket in the meantime. Pt stated I don't need a warm f'in blanket, I need a hot room or else I need another room. I will pass message along and will see if the day shift secretary administrative assistant can put a request in. 2322- Notified Dr. Hathaway of patient complaint of SOB and worsening chest pain that he described as dull and tight. Vitals WDL. STAT EKG ordered, patient given Nitrostat, and troponin sent down. 2330- Notified SIGN BOARD ERECTOR to assess the patient. Patient Name: Jun Snyder Patient : 1965 Acct: [id number] Date of Admission: 02/20/2025 [facility] Code Status: Full Code Allergies: Allergies[1] Diagnosis: Problem List[2] Treatment: Hemodilaysis 2:1 Priority: Routine Location: Acute Room Diabetic: No NPO: No Isolation Precautions: Dialysis Consent for Treatment Verified: Yes Blood Consent Verified: Not Applicable ICEBOAT: Identify, Consent, Equipment, HepB Status, Orders Complete, Access Verified, Timeliness (o2 and suction functional @ bedside) Second Clinician Verifying: Hector Hutchison RN Time out performed prior to access at 1058. Report Received from Primary RN at 0722. Primary RN (First Initial, Last Name, Title): Nadja Martinez RN Incapacitated wsNurse Education Completed: HBsAg ONLY: Date Drawn: January 26, 2025 Results: Negative HBsAb: Date Drawn: January 26, 2025 Results: Susceptible <10 Order Dialyzer: Nipro Na+ Modeling: Not Applicable Dialysate Temperature (C): 36 Blood Flow Rate (BFR): 350 Dialysate Flow Rate (DFR): 600 Access to be Utilized Access: AVF Location: Upper Extremity Side: Left Needle gauge: 16 + Bruit/Thrill: Yes First Use X-ray Verified: Not Applicable OK to use line order: Not Applicable Site Assessment: Signs and Symptoms of Infection/Inflammation: None If yes: Not Applicable Dressing: na Site Prep: Medical Aseptic Technique Dressing Changed this Treatment: na If yes, by whom: na Date of Last Dressing Change: na [id number]?: na Red Alcohol Caps in place?: na Gauze Dressing?: na Non-Dialysis Use?: No Comment: Flows: Good If access problem, who was notified: Pre and Post-Assessment Patient Vitals for the past 8 hrs: Level of Consciousness Heart Rhythm O2 Device Bilateral Breath Sounds Skin Condition/Temp Abdomen Inspection Bowel Sounds (All Quadrants) 02/24/25 1105 Alert (0) Regular None (Room air) Diminished Warm;Dry Soft Active 02/24/25 1230 -- -- Nasal cannula -- -- -- -- 02/24/25 1413 Alert (0) Regular -- -- -- -- -- Labs Lab Results Component Value Date/Time WBC 8.6 02/23/202531 HGB 8.6 (L) 02/23/202531 HGB 9.4 11/11/2024 0230 HCT 27.9 (L) 02/23/2025 0032 PLT 316 02/23/2025 0032 NA 135 (L) 02/23/2025 0032 K 4.1 02/23/2025 003 CL 99 02/23/202531 CO2 25 02/23/2025 003 BUN 21 02/23/202531 CREATININE 2.78 (H) 02/23/202531 CREATININE 9.99 (H) 10/27/2019 0545 CALCIUM 9.2 02/23/202531 PHOS 2.6 02/23/202531 IV Drips and Rate/Dose Continuous Meds[3] Safety - Before each treatment: Dialysis Machine No.: [id number] RENY Machine Number: [id number] Dialyzer Lot No.: [id number] Tubing Lot Number: [id number] All Connections Secure: Yes Venous Parameters Set: Yes Arterial Parameters Set: Yes NS Bag: Yes Saline Line Double Clamped: Yes Dialyzer: Nipro Prime Volume (mL): 200 mL RO Machine Number: [id number] RO Machine Log Sheet Completed: Yes Machine Alarm Self Test: Completed, Passed (02/24/25 08) Air Foam Detector: Tested, Proper Function, pH Reading Extracorporeal Circuit Tested for Integrity: Yes Machine Conductivity: 13.7 Manual Conductivity: 13.7 Manual Ph: 7 Bleach Test (Neg): Yes Bath Temperature: 36 C (96.8 F) Conductivity Meter Serial #: [id number] Machine Functioning Alarm Free? Yes Dialysis Bath: K+ (Potassium): 3 Ca+ (Calcium): 2.5 Na+ (Sodium): 137 HCO3 (Bicarb): 35 Bicarbonate Concentrate Lot No.: [id number] Acid Concentrate Lot No.: [id number] Chlorine Testing - Before each treatment and every 4 hours: Time On: 3 Time Off: 1413 Treatment Goal: 2L Weight Height: 177.8 cm (5' 10) (02/23/25 141) Weight: 60.8 kg (134 lb) (02/23/251412) BMI (Calculated): 19.23 (02/23/251412) 1st check: less than 0.1 ppm at: 0845 2nd check: less than 0.1 ppm at: 1145 3rd check: Not Applicable (if greater than 0.1 ppm, then check every 30 minutes from secondary) Access Flows and Pressures Patient Vitals for the past 8 hrs: Blood Flow Rate (mL/min) Ultrafiltration Rate (ml/hr) Arterial Pressure (mmHg) Venous Pressure (mmHg) TMP DFR Access Visible Intra-Hemodialysis Comments 02/24/25 1105 -- -- -- -- -- -- Yes pt aware of call light within reach and educated on use of call light 02/24/25 1113 20 mL/min 830 ml/hr -20 mmHg 90 mmHg 50 600 Yes tx iniated lines secured pt stable 02/24/25 1115 350 mL/min 830 ml/hr -100 mmHg 170 mmHg 50 600 Yes bfr increased 02/24/25 1130 350 mL/min 830 ml/hr -100 mmHg 220 mmHg 70 600 Yes Pt sleeping rmvd 291. 02/24/25 1149 350 mL/min 830 ml/hr -110 mmHg 210 mmHg 70 600 Yes Pt alert resting. Rmvd 2304. 02/24/25 1200 350 mL/min 830 ml/hr -110 mmHg 220 mmHg 70 600 Yes Pt sleeping stable Rmvd 660. 02/24/25 1215 350 mL/min 830 ml/hr -110 mmHg 210 mmHg 60 600 Yes pt sleeping, lines secured. uf removed is 956 02/24/25 1230 350 mL/min 830 ml/hr -110 mmHg 210 mmHg 60 600 Yes 1092 uf removed, pt request o2 @ 2L during dialysis, remains tachycardic 02/24/25 1247 350 mL/min 830 ml/hr -110 mmHg 210 mmHg 50 600 Yes Pt sleeping. Rmvd 1289. 02/24/25 1300 350 mL/min 830 ml/hr -110 mmHg 200 mmHg 50 600 Yes Pt stable rmvd 1482. Sleeping. Lines secure. 02/24/25 1315 350 mL/min 830 ml/hr -140 mmHg 200 mmHg 40 600 Yes Pt stable sleeping rmvd 1728. 02/24/25 1331 350 mL/min 830 ml/hr -120 mmHg 190 mmHg 40 600 Yes Pt nstable resting rmvd 1883. 02/24/25 1346 350 mL/min 850 ml/hr -120 mmHg 190 mmHg 40 600 Yes Pt sleeping, rmvd 2081. Stable. 02/24/25 1401 350 mL/min 8580 ml/hr -120 mmHg 180 mmHg 30 600 Yes Pt stable rmvd 2299. Sleeping. Call light in reach. 02/24/25 1413 -- -- -- -- -- -- Yes tx complete pt stable 2500 uf removed Vital Signs Patient Vitals for the past 24 hrs: BP Temp Temp src Pulse Resp SpO2 02/24/25 1728 135/83 36.7 C (98 F) Temporal 86 22 98 % 02/24/25 1549 117/78 -- -- 95 -- -- 02/24/25 1427 142/91 -- -- 110 -- -- 02/24/25 1413 115/74 36.8 C (98.3 F) -- 109 16 100 % 02/24/25 1401 103/83 -- -- 115 -- -- 02/24/25 1346 125/85 -- -- 102 -- -- 02/24/25 1331 105/85 -- -- 107 -- -- 02/24/25 1315 135/84 -- -- 99 -- -- 02/24/25 1300 142/93 -- -- (!) 121 -- -- 02/24/25 1247 134/91 -- -- 120 -- -- 02/24/25 1230 138/87 -- -- 119 -- -- 02/24/25 1215 134/85 -- -- 118 -- -- 02/24/25 1200 123/81 -- -- 119 -- -- 02/24/25 1149 126/80 -- -- 119 -- -- 02/24/25 1130 129/80 -- -- 117 -- -- 02/24/25 1115 122/81 -- -- 113 -- -- 02/24/25 1113 127/80 -- -- 114 -- -- 02/24/25 1105 130/85 37.2 C (98.9 F) -- 113 16 99 % 02/24/25 0937 141/89 36.4 C (97.6 F) Temporal 112 16 98 % 02/24/25 0524 131/86 36.9 C (98.4 F) Temporal 109 16 94 % 02/24/25 0112 124/84 36.3 C (97.3 F) Temporal 107 16 96 % 02/23/25 2142 131/90 36.6 C (97.8 F) Temporal 110 16 96 % Post-Dialysis Arterial Catheter Locking Solution: Not Applicable Venous Catheter Locking Solution: Not Applicable Post-Treatment Procedures: Blood returned, Access bleeding time < 10 minutes Machine Disinfection Process: Exterior Machine Disinfection, Bleach, Acid/Vinegar Clean Rinseback Volume (mL): 300 mL Total Liters Processed (L/min): 59.7 L/min Dialyzer Clearance: Lightly streaked Hemodialysis Intake (ml): 500 ml Hemodialysis Output (ml): 2500 ml NET Removed (ml): 2000 ml Tolerated Treatment: Good Patient Response to Treatment: stable Physician Notified: No Patient Disposition: Return to room Charge: $ IP Hemodialysis Charge: Hemodialysis Provider Notification Provider Notification Reason for Communication: Review case (asking about orders for tube feed based on dietary recommendations) [place] [facility] [place] Role: Hospitalist Method of Communication: Secure chat Response: Waiting for response Notification Date: 02/21/25 Notification Time: 1955 Reason for Communication: Review case (asking about orders for tube feed based on dietary recommendations) Provider Role: Hospitalist Method of Communication: Secure chat Response: Waiting for response Notification Time: 1955 Handoff complete and report given to Primary RN at 1435. Primary RN (First Initial, Last Name, Title): Nadja Currie;chantal RN Education Person Educated: Patient Knowledge Base: Minimal Barriers to Learning?: None Preferred method of Learning: Oral Topic(s): call light, Access Care, Signs and Symptoms of Infection, and Fluid Management Teaching Tools: Demonstration Response to Education: Verbalized Understanding [1] Allergies Allergen Reactions Lisinopril Swelling and Angioedema [2] Patient Active Problem List Diagnosis Anemia Paroxysmal A-fib ([facility]) ([facility]) HTN (hypertension) ESRD on hemodialysis ([facility]) ([facility]) 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 Diverticulosis Nonrheumatic aortic valve stenosis Calcification of abdominal aorta ([facility]) Missed vaccination due to patient refusal Tobacco abuse Alcohol use disorder in remission Atrial flutter, unspecified type ([facility]) RSV (acute bronchiolitis due to respiratory syncytial virus) Aortic stenosis Upper GI bleed S/P AVR Acute hypoxic respiratory failure ([facility]) Acute encephalopathy Pneumoperitoneum Gastric ulceration Severe malnutrition ([facility]) ([facility]) Pleural effusion Peritonitis due to fungus ([facility]) History of abdominal surgery Leg DVT (deep venous thromboembolism), acute, left ([facility]) 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, 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 of skin ([facility]) 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[facility]) Leukocytosis Decubitus ulcer of sacral region, unstageable ([facility]) Pneumonia of both lungs due to methicillin susceptible Staphylococcus aureus (MSSA) ([facility]) Sacral osteomyelitis ([facility]) ([facility] Acute respiratory failure with hypoxia ([facility]) [J96.01] Tracheostomy care ([facility]) [Z43.0] 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[facility]) rn long term care (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 Complication of tracheostomy ([facility]) ([facility]) BRBPR (bright red blood per rectum) Hemoptysis [3] heparin, 5-30 Units/kg/hr, Last Rate: 18 Units/kg/hr (02/24/25 1601) Patient continuing to order packages when he was instructed not to, multiple times, while at the hospital. Dispatch called [facility] and said a package came to the mail list librarian but they will not have access to retreive until Wednesday morning. It is locked over the weekend. Wound Care consulted for Pressure Injury Prevention. Pt's Kee score= 13 on 02/23 Pt's pressure points assessed. Pt's Right Heel, Elbows, Occiput and ears all intact. Pt currently followed by Wound CASTING COORDINATOR group for wounds to left toes, left plantar heel, right wrist, and sacrum with wound vac. For left toes, left heel, right wrist, and sacral wound assessments and treatment plan, please see Wound/Ostomy CASTING COORDINATOR progress notes. [place] sheet noted at bedside and not on bed underneath pt. This RN offered to replace glide sheet on bed, but pt refused, stating, That thing just bunches up and gets up under me. I don't want it. Instructed pt on pressure injury prevention and importance of turning/postioning every 2hrs while in bed and every 15 min while sitting in chair. Instructed on use and care of waffle chair cushion. Verbalized understanding. Prevention Measures in place, including: Pillows/wedges, Foam heel protector (obtained and applied to right heel), Heels elevated off bed on pillows, Zinc/Moisture Barrier ointment (obtained), Waffle chair cushion (obtained for pt). Skin Care precaution order set in place. Dietitian consult in place. PT/OT consult in place. Will continue to follow pt. Please Vocera for any questions or concerns. Yari Pelletier RN Pt keeps ordering door dash items. Have explained to pt on multiple occasions that staff cannot leave floor to get items and that it is after hours and door dashers most likely will not be allowed up onto the floors. Did finally obtain both blood cultures. Pt did fuss a little about attempting to obtain them. Pt is keeping large amount of food in room, won't allow nursing to remove. Also patient keeps ordering door dash for items at the store he wants, explained that staff must stay on floor they are helping others. Patient Name: Jun Snyder Patient : 1965 Acct: [id number] Date of Admission: 02/20/2025 [facility] Code Status: Full Code Allergies: Allergies[1] Diagnosis: Problem List[2] Treatment: Hemodialysis 1:1 Priority: Routine Location: Bedside Diabetic: Yes NPO: No Isolation Precautions: droplet Consent for Treatment Verified: Yes Blood Consent Verified: Not Applicable ICEBOAT: Identify, Consent, Equipment, HepB Status, Orders Complete, Access Verified, Timeliness (o2 and suction functional at bedside) Second Clinician Verifying: Nadja Bernard RN Time out performed prior to access at 0940. Report Received from Primary RN at 0845. Primary RN (First Initial, Last Name, Title): Nadja Bernard RN Incapacitated Nurse Education Completed: Yes HBsAg ONLY: Date Drawn: January 26, 2025 Results: Negative HBsAb: Date Drawn: January 26, 2025 Results: Susceptible <10 Order Dialyzer: Nipro Na+ Modeling: Not Applicable Dialysate Temperature (C): 36 Blood Flow Rate (BFR): 350 Dialysate Flow Rate (DFR): 600 Access to be Utilized Access: AVF Location: Upper Extremity Side: Left Needle gauge: 16 + Bruit/Thrill: Yes First Use X-ray Verified: Not Applicable OK to use line order: Not Applicable Site Assessment: Signs and Symptoms of Infection/Inflammation: None If yes: Not Applicable Dressing: Dry and Intact Site Prep: Medical Aseptic Technique Gauze Dressing?: Yes Non-Dialysis Use?: No Comment: Flows: Good If access problem, who was notified: Pre and Post-Assessment Patient Vitals for the past 8 hrs: Level of Consciousness Oriented X Heart Rhythm Respiratory Pattern O2 Device Bilateral Breath Sounds Skin Color Skin Condition/Temp Abdomen Inspection Bowel Sounds (All Quadrants) Generalized Edema RUE Edema LUE Edema RLE Edema LLE Edema Pre-Hemodialysis Comments 02/22/25 0800 -- -- -- Tachypnea -- Diminished Ecchymosis Warm;Dry Flat -- -- -- -- -- -- -- 02/22/25 0930 Alert (0) 4 Regular Tachypnea None (Room air) Diminished Pale;Ecchymosis Warm;Dry Flat Active -- None None None None incapacitated nurse review and patient education complete, educated on use of call light 02/22/25 1300 Alert (0) 4 Regular Tachypnea None (Room air) Diminished Pale;Ecchymosis Warm;Dry -- -- Other (Comment) None None None -- -- Labs Lab Results Component Value Date/Time WBC 9.0 02/22/2025 010 HGB 7.8 (L) 02/22/2025 010 HGB 9.4 11/11/2024 0230 HCT 24.5 (L) 02/22/2025 010 PLT 282 02/22/2025 010 NA 132 (L) 02/22/2025 010 K 3.4 (L) 02/22/2025 010 CL 94 (L) 02/22/2025 010 CO2 25 02/22/2025 010 BUN 36 (H) 02/22/2025 010 CREATININE 3.99 (H) 02/22/2025 010 CREATININE 9.99 (H) 10/27/2019 0545 CALCIUM 9.2 02/22/202599 PHOS 3.2 02/22/202599 IV Drips and Rate/Dose Continuous Meds[3] Safety - Before each treatment: Dialysis Machine No.: [id number] RO Machine Number: [id number] Dialyzer Lot No.: [id number] Tubing Lot Number: [id number] All [employer]ctions Secure: Yes Venous Parameters Set: Yes Arterial Parameters Set: Yes NS Bag: Yes Saline Line Double Clamped: Yes Dialyzer: Nipro Prime Volume (mL): 200 mL RO Machine Number: [id number] RO Machine Log Sheet Completed: Yes Machine Alarm Self Test: Completed, Passed (test passed at 0938) (02/22/25 0940) Air Foam Detector: Tested, Proper Function, pH Reading Extracorporeal Circuit Tested for Integrity: Yes Machine Conductivity: 13.7 Manual Conductivity: 13.8 Manual Ph: 7 Bleach Test (Neg): Yes (water check negative at 1215) Bath Temperature: 36 C (96.8 F) Conductivity Meter Serial #: [id number] Machine Functioning Alarm Free? Yes Dialysis Bath: K+ (Potassium): 3 Ca+ (Calcium): 2 Na+ (Sodium): 137 HCO3 (Bicarb): 35 Bicarbonate Concentrate Lot No.: [id number] Acid Concentrate Lot No.: [id number] Chlorine Testing - Before each treatment and every 4 hours: Time On: 0945 Time Off: 1245 Weight Height: 177.8 cm (5' 10) (02/21/25 1448) Weight: 61.1 kg (134 lb 11.2 oz) (02/21/25 1400) BMI (Calculated): 19.33 (02/21/25 1400) 1st check: less than 0.1 ppm at: 0915 2nd check: less than 0.1 ppm at: 1215 3rd check: Not Applicable (if greater than 0.1 ppm, then check every 30 minutes from secondary) Access Flows and Pressures Patient Vitals for the past 8 hrs: Blood Flow Rate (mL/min) Ultrafiltration Rate (ml/hr) Arterial Pressure (mmHg) Venous Pressure (mmHg) TMP DFR Access Visible Intra-Hemodialysis Comments 02/22/25 0945 350 mL/min 830 ml/hr -50 mmHg 70 mmHg 100 600 Yes Tx initiated, 200 ml NS prime given. Patient alert call light in reach 02/22/25 1000 350 mL/min 830 ml/hr -60 mmHg 100 mmHg 90 600 Yes access visible, lines secured. fluid removal 202ml 02/22/25 1015 350 mL/min 830 ml/hr -60 mmHg 120 mmHg 90 600 Yes Brigitte Molina CASTING COORDINATOR at bedside, no voiced complaints. fluid removal 401ml 02/22/25 1030 350 mL/min 830 ml/hr -80 mmHg 120 mmHg 90 600 Yes patient alert, watching tv, fluid removal 602ml 02/22/25 1045 350 mL/min 830 ml/hr -80 mmHg 130 mmHg 90 600 Yes patient talking on cell phone, fluid removal 831ml 02/22/25 1100 350 mL/min 830 ml/hr -90 mmHg 130 mmHg 90 600 Yes patient repositiond self for comort. fluid removal 1002ml 02/22/25 1115 350 mL/min 830 ml/hr -100 mmHg 140 mmHg 80 600 Yes physicians at bedside, fluid removal 1192ml 02/22/25 1130 350 mL/min 830 ml/hr -90 mmHg 140 mmHg 80 600 Yes pt alert, call light in reach. fluid remopval 1446ml 02/22/25 1145 350 mL/min 830 ml/hr -80 mmHg 140 mmHg 80 600 Yes bicarb jug changed, fluid removal 1617ml 02/22/25 1200 350 mL/min 830 ml/hr -100 mmHg 150 mmHg 90 600 Yes Primary RN at bedside, fluid removal 1875ml 02/22/25 1215 350 mL/min 830 ml/hr -90 mmHg 150 mmHg 90 600 Yes no voiced complaints, call light in reach 02/22/25 1230 350 mL/min 830 ml/hr -90 mmHg 150 mmHg 80 600 Yes 2266ml fluid removed. patient alert, continue to monitor. 02/22/25 1245 350 mL/min 830 ml/hr -90 mmHg 140 mmHg 80 600 Yes tx complete, 300 ml NS rinseback given. fluid removal 2500ml Vital Signs Patient Vitals for the past 24 hrs: BP Temp Temp src Pulse Resp SpO2 Height Weight 02/22/25 1300 142/87 36.3 C (97.4 F) -- 85 20 96 % -- -- 02/22/25 1245 122/77 -- -- 85 -- -- -- -- 02/22/25 1230 142/82 -- -- 82 -- -- -- -- 02/22/25 1215 139/73 -- -- 79 -- -- -- -- 02/22/25 1200 134/79 -- -- 87 -- -- -- -- 02/22/25 1145 130/73 -- -- 85 -- -- -- -- 02/22/25 1130 123/74 -- -- 80 -- -- -- -- 02/22/25 1115 138/83 -- -- 95 -- -- -- -- 02/22/25 1100 131/80 -- -- 82 -- -- -- -- 02/22/25 1045 136/77 -- -- 79 -- -- -- -- 02/22/25 1030 131/81 -- -- 81 -- -- -- -- 02/22/25 1015 129/79 -- -- 82 -- -- -- -- 02/22/25 1000 132/78 -- -- 85 -- -- -- -- 02/22/25 0945 129/79 -- -- 88 -- -- -- -- 02/22/25 0930 131/76 36.4 C (97.6 F) -- 88 20 95 % -- -- 02/22/25 0643 131/82 36.7 C (98 F) Temporal 91 20 95 % -- -- 02/22/25 0149 126/71 36.8 C (98.3 F) Temporal 84 20 95 % -- -- 02/21/25 2221 152/84 36.4 C (97.6 F) Temporal 93 19 96 % -- -- 02/21/25 1726 144/88 36.5 C (97.7 F) Temporal 88 16 100 % -- -- 02/21/25 1448 -- -- -- -- -- -- 1.778 m (5' 10) -- 02/21/25 1400 -- -- -- -- -- -- -- 61.1 kg (134 lb 11.2 oz) 02/21/25 1330 141/76 36.4 C (97.5 F) Temporal 85 16 96 % -- -- Post-Dialysis Arterial Catheter Locking Solution: Not Applicable Venous Catheter Locking Solution: Not Applicable Post-Treatment Procedures: Blood returned, Access bleeding time < 10 minutes Machine Disinfection Process: Exterior Machine Disinfection, Acid/Vinegar Clean, Heat Disinfect Rinseback Volume (mL): 300 mL Total Liters Processed (L/min): 62.3 L/min Dialyzer Clearance: Lightly streaked Hemodialysis Intake (ml): 500 ml Hemodialysis Output (ml): 2500 ml NET Removed (ml): 2000 ml Tolerated Treatment: Good Patient Response to Treatment: tolerated without difficulty Physician Notified: No Patient Disposition: Other (Comment) (remain in [facility]) Charge: $ IP Hemodialysis Charge: Hemodialysis Provider Notification Provider Notification Reason for Communication: Review case (asking about orders for tube feed based on dietary recommendations) [place] [facility] [place] Role: Hospitalist Method of Communication: Secure chat Response: Waiting for response Notification Date: 02/21/25 Notification Time: 1955 Reason for Communication: Review case (asking about orders for tube feed based on dietary recommendations) Provider Role: Hospitalist Method of Communication: Secure chat Response: Waiting for response Notification Time: 1955 Handoff complete and report given to Primary RN at 1250. Primary RN (First Initial, Last Name, Title): Nadja Bernard RN Education Person Educated: Patient Knowledge Base: Substantial Barriers to Learning?: None Preferred method of Learning: Oral Topic(s): Procedural Teaching Tools: Explanation Response to Education: Verbalized Understanding [1] Allergies Allergen Reactions Lisinopril Swelling and Angioedema [2] Patient Active Problem List Diagnosis Anemia Paroxysmal A-fib ([facility] ([facility]) HTN (hypertension) ESRD on hemodialysis ([facility]) ([facility]) 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 Diverticulosis Nonrheumatic aortic valve stenosis Calcification of abdominal aorta ([facility]) Missed vaccination due to patient refusal Tobacco abuse Alcohol use disorder in remission Atrial flutter, unspecified type ([facility]) RSV (acute bronchiolitis due to respiratory syncytial virus) Aortic stenosis Upper GI bleed S/P AVR Acute hypoxic respiratory failure ([facility]) Acute encephalopathy Pneumoperitoneum Gastric ulceration Severe malnutrition ([facility]) ([facility]) Pleural effusion Peritonitis due to fungus ([facility]) History of abdominal surgery Leg DVT (deep venous thromboembolism), acute, left ([facility]) 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, 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 of skin ([facility]) 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[facility]) Leukocytosis Decubitus ulcer of sacral region, unstageable ([facility]) Pneumonia of both lungs due to methicillin susceptible Staphylococcus aureus (MSSA) ([facility]) Sacral osteomyelitis ([facility]) ([facility] Acute respiratory failure with hypoxia ([facility]) [J96.01] Tracheostomy care ([facility]) [Z43.0] 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HCC) senior living (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 Complication of tracheostomy (CMS/HCC) (HCC) BRBPR (bright red blood per rectum) Hemoptysis [3] heparin, 5-30 Units/kg/hr, Last Rate: 18 Units/kg/hr (02/22/25 0738) Pt ordered [employer] food. Assisted pt to sit up on bedside to eat. This nurse was present with wound care when patient vehemently refused the sand bed despite education regarding the benefits and necessity considering his sacral wound. Patient was agreeable to trying a 500 bed, however demanded that his current bed be nearby in case he hates that piece of shit bed too. Pt declining scheduled medications until after RN calls facility to see if he is actively taking those medications per pt request. This RN spoke with RN at [facility] to verify medications that pt is taking. Pt arrived to hospital with wound vac on coccyx. Pt declined pictures to be taken of wound for charting. Pt states wound is being cared for by custodial facility. Pt also mentioned that his Left foot is necrotic, has necrotic toes. Pt is wearing hospital socks. Pt declined to let RN examine foot. Pt has Peg tube in LUQ. Per pt and his partner Toma, pt receives supplemental tube feeds along with having PO meals. Pt removed NC from nose, stated he doesn't need it anymore. Respiratory Therapy came in to give pt, scheduled breathing treatment, pt stated he didn't need one. Pt asking for address to hospital so he can get a delivery. Informed pt that delivery people are unable to come in after hours, and we are not able to go down to get them. Pt asked if security would bring it up, informed pt that they usually don't bring up delivery. Pt was cussing while speaking to RN, RN informed pt that she would inquire about the address for delivery, but asked if pt could stop cussing. Pt stated there's worse words I could use to you. Pt arrived on floor via [facility] documented in this encounter [facility] 02-26-2025 Telephone encount er Note Called spoke with a nurse at the home he lives at. She declined to schedule any appointments at this time because they don't know when patient will be discharged. She said to call back once he is out the hospital. There is no other number to contact patient directly [facility] 02-26-2025 Miscellaneous Notes Formattin g of this note might be different from the original. Called spoke with a nurse at the home he lives at. She declined to schedule any appointments at this time because they don't know when patient will be discharged. She said to call back once he is out the hospital. There is no other number to contact patient directly Called LM to call back and schedule CT and hospital follow up with any ARMIN Antonio, can we please schedule a 6-week CT scan for this patient and a follow-up appointment after this? Thank you documented in this encounter [facility] 02-23-2025 Telephone encount er Note Called LM to call back and schedule CT and hospital follow up with any ARMIN [facility] 02-23-2025 Miscellaneous Notes Formattin g of this note might be different from the original. Called LM to call back and schedule CT and hospital follow up with any ARMIN Antonio, can we please schedule a 6-week CT scan for this patient and a follow-up appointment after this? Thank you documented in this encounter [facility] 02-23-2025 Consult note Formatting of th is note is different from the original. Department of General Surgery Surgical Service - ACS Resident Consult Note 02/23/2025 CHIEF COMPLAINT: Chief Complaint Patient presents with Coughing Up Blood Pt arrives via EMS due to coughing up blood. This began around 1200 today while he was at dialysis. Pt endorses nausea, but denies any related abdominal pain. 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 Reason for Consult: PEG Removal HISTORY OF PRESENT ILLNESS: Jun Snyder is a 58 y.o. male with significant past medical history of HTN, diverticulosis, PAF (previously on Eliquis), ESRD on HD TTSa (LUE AVF), IgA nephropathy, aortic stenosis s/p AVR ([place] mech valve 10/12/24 (Dr Montemayor). He had a prolonged course previously including two PEA arrest events and required CRRT. A bedside tracheostomy and PEG was performed 11/14 requiring RTOR for PEG ulceration causing pneumoperitoneum 11/16 where the PEG was stammed . General surgery consulted for PEG tube removal as patient has been tolerating a regular diet. Patient states he is doing well. Has been eating by mouth and has not used the PEG tube for feeds in a long time. It is starting to bother him. Has not noticed any redness or drainage from the PEG tube. He understands that he should only have it removed if he isn't using it anymore for sure and getting it back in may be difficult. Upon evaluation, patient is AF, HDS. Labs notable for: WBC: 8.6 H/H: 8.6/27.9 Plt: 316 BUN/Cr: 21/2.78 Medical History[1] Surgical History[2] Medications Prior to Admission: Prior to Admission medications Medication Sig Start Date End Date Taking? Authorizing Provider warfarin (Coumadin) 1 MG tablet Take as directed per After Visit Summary. 11/28/24 Yes DENIA Girard CNP ipratropium-albuterol (Duo-Neb) 0.5-2.5 mg/3 mL nebulizer solution Take 3 mL by nebulization every 8 hours. 11/28/24 02/21/25 Yes DENIA Girard CNP acetaminophen (Tylenol) 325 MG tablet Take 650 mg by mouth every 6 hours as needed for mild pain (1-3), fever or moderate pain (4-6). Historical Provider, B complex-vitamin C-folic acid (Nephro-Nato Rx) 1 MG tablet Take 1 tablet by mouth daily. Historical Provider, bisacodyl (Dulcolax) 10 MG suppository Insert 10 mg into the rectum Daily as needed for constipation. Historical Provider, bisacodyl (Dulcolax) 5 MG EC tablet Take 5 mg by mouth Daily as needed for constipation. Do not crush, chew, or split. Historical Provider, ipratropium-albuterol (Duo-Neb) 0.5-2.5 mg/3 mL nebulizer solution Take 3 mL by nebulization every 8 hours as needed for shortness of breath. Historical Provider, Lidocaine 4 % patch Apply 1 patch topically daily. 11/29/24 DENIA Girard CNP magnesium hydroxide (Milk of Magnesia) 800 MG/5ML suspension Take 30 mL by mouth Daily as needed for constipation (if no bm in 3 days). Historical Provider, melatonin 5 MG tablet 1 tablet (5 mg) by Per G Tube route Nightly as needed (insomnia). 11/28/24 DENIA Girard CNP metoprolol tartrate (Lopressor) 25 MG tablet 1 tablet (25 mg) by Per G Tube route 2 times daily. 11/28/24 11/28/25 DENIA Girard CNP midodrine (Proamatine) 5 MG tablet 3 tablets (15 mg) by Per G Tube route every 6 hours. 11/28/24 02/14/25 DENIA Girard CNP naloxone in sodium chloride (PF) injection injection Inject 0.04 mg into the shoulder, thigh, or buttocks as needed for opioid reversal or respiratory depression. Historical Provider, QUEtiapine (SEROquel) 25 MG tablet 1 tablet (25 mg) by Per G Tube route Nightly. 11/28/24 02/14/25 DENIA Girard CNP sevelamer (Renagel) 800 MG tablet Take 800 mg by mouth 3 times daily (with meals). Swallow tablet whole; do not crush, break, or chew. Give with meals for CKD/dialysis Historical Provider, Ampicillin-Sulbactam Sodium (UNASYN IV) Infuse 3 g into a venous catheter Every 24 hours. 01/25/25 02/21/25 Historical Provider, bisacodyl (Dulcolax) 5 mg split suppository Insert 10 mg into the rectum Daily as needed (PRN constipation). 02/21/25 Historical Provider, epoetin rowan-epbx (Retacrit) 93462 UNIT/ML injection Inject 0.79 mL (7,900 Units) under the skin 1 (one) time per week. Patient not taking: Reported on 02/21/2025 12/04/24 02/21/25 DENIA Girard CNP pantoprazole (ProtoNix) 40 MG injection Infuse 40 mg into a venous catheter 2 times daily. 11/28/24 02/21/25 Osiris Terrell APRN - [employer] SALES [employer]ER Allergies: Lisinopril Social History[3] Family History[4] REVIEW OF SYSTEMS: Review of Systems PHYSICAL EXAM: Vitals: 02/23/25 0927 BP: 131/80 Pulse: 94 Resp: 16 Temp: 36.2 C (97.1 F) SpO2: 94% I/O last 3 completed shifts: In: 414.7 (6.8 mL/kg) [I.V.:414.7 (6.8 mL/kg)] Out: 100 (1.6 mL/kg) [Urine:100 (0 mL/kg/hr)] Weight: 61.1 kg Physical Exam Vitals reviewed. Constitutional: General: He is not in acute distress. Appearance: Normal appearance. He is not toxic-appearing. HENT: Head: Normocephalic and atraumatic. Nose: Nose normal. Eyes: General: No scleral icterus. Conjunctiva/sclera: Conjunctivae normal. Cardiovascular: Rate and Rhythm: Normal rate and regular rhythm. Pulmonary: Effort: Pulmonary effort is normal. No respiratory distress. Abdominal: General: Abdomen is flat. There is no distension. Palpations: Abdomen is soft. Tenderness: There is no abdominal tenderness. There is no guarding or rebound. Comments: PEG in LUQ, no erythema or edema. Musculoskeletal: General: No swelling or tenderness. Cervical back: Normal range of motion. Skin: General: Skin is warm and dry. Capillary Refill: Capillary refill takes less than 2 seconds. Neurological: General: No focal deficit present. Mental Status: He is alert and oriented to person, place, and time. Psychiatric: Mood and Affect: Mood normal. Behavior: Behavior normal. DATA: CBC: Lab Results Component Value Date WBC 8.6 02/23/2025 RBC 3.00 (L) 02/23/2025 HGB 8.6 (L) 02/23/2025 HCT 27.9 (L) 02/23/2025 MCV 93.0 02/23/2025 MCH 28.7 02/23/2025 MCHC 30.8 02/23/2025 RDW 19.7 (H) 02/23/2025 PLT 316 02/23/2025 MPV 8.9 (L) 02/23/2025 BMP: Lab Results Component Value Date NA 135 (L) 02/23/2025 K 4.1 02/23/2025 CL 99 02/23/2025 CO2 25 02/23/2025 BUN 21 02/23/2025 CREATININE 2.78 (H) 02/23/2025 CALCIUM 9.2 02/23/2025 GLUCOSE 110 (H) 02/23/2025 Hepatic Function Panel: Lab Results Component Value Date ALKPHOS 136 02/23/2025 ALT 10 02/23/2025 AST 37 (H) 02/23/2025 PROT 7.1 02/23/2025 BILITOT 0.6 02/23/2025 PT/INR: Lab Results Component Value Date PROTIME 14.0 (H) 02/23/2025 INR 1.3 (H) 02/23/2025 Troponin: No results found for: TROPONINI LIPASE: No results found for: LIPASE IMAGING: CTA chest angiogram w and/or wo IV contrast Result Date: 02/20/2025 Patient Name: JUN SNYDER : 1965 Exam Date/Time: 02/20/2025 19:01 Procedure: CT CHEST ANGIOGRAM W AND/OR WO IV CONTRAST Ordering Provider: THURMAN MEJGON Reason For Exam: hemoptysis, on thinners CTA CHEST WITH IV CONTRAST CLINICAL INDICATION: hemoptysis, on thinners. TECHNIQUE: CTA of the chest with IV contrast. Multiplanar reformations. 3-D image post-processing was performed on an independent workstation. Dose reduction was employed with automated exposure control. COMPARISON: 01 November 2024. FINDINGS: The main and bilateral proximal pulmonary arteries are normally opacified without apparent filling defects. Small, isolated filling defect noted in the right lower lobe subsegmental pulmonary artery (series 7:74). Mild cardiomegaly, stable. Median sternotomy wires and aortic valve repair again noted. No apparent aneurysm, pseudoaneurysm or aortic dissection. No significant lymph node enlargement or axillary adenopathy. Lungs show multifocal opacities and possible infiltrates, with peripheral distribution, most pronounced in the left apex. Small central lucencies may represent some internal air bronchograms versus possible cavitations. Small, bilateral pleural effusions. No apparent pneumothorax. Small gallstones again noted. Diminutive kidneys partially visualized. Percutaneous gastrostomy tube and IVC filter partially visualized. 1. Small, apparently isolated filling defect in right lower lobe subsegmental pulmonary artery of uncertain significance. Clinical correlation and follow-up as indicated. 2. No other, apparent large vessel or central pulmonary emboli. 3. Diffuse, multifocal opacities and possible infiltrates, with peripheral distribution and internal bronchograms versus partial cavitation, which may represent nonspecific infectious or inflammatory process and pneumonitis. Differential diagnosis also includes septic emboli and neoplastic or metastatic disease. Clinical correlation and follow-up to resolution advised. 4. Small bilateral pleural effusions. 5. Cholelithiasis, and diminutive [place] kidneys. Report Dictated on Electronically Signed By: Justo Milan MD Electronically Signed Date/Time: 02/20/2025 7:50 PM EDT ASSESSMENT: This is a 59 y.o. male with prior requirement for tracheostomy and PEG (11/14/24) with inadvertent removal of tracheostomy, general surgery consulted for removal of PEG. PLAN: - PEG removed at bedside, patient tolerated well - Local wound care until wound closes naturally, may take a few weeks - Ok for diet as tolerated - Rest of care per primary - General surgery to sign off Discussed with attending, Dr. Ramirez. Jaskaran Bey MD General Surgery PGY-2 Pager [phone] [1] Past Medical History: Diagnosis Date Acute renal failure (ARF) ([facility]) 10/19/2019 Anemia 12/30/2021 Calcification of abdominal aorta ([facility]) 10/08/202309/[address] abd Diverticulosis 10/08/2023 ESRD on hemodialysis ([facility]) ([facility]) 10/26/2019 Hemodialysis patient ([facility] [place]) ([facility]) HTN (hypertension) 12/01/2022 Hypertension IgA nephropathy 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 10/26/2019 Missed vaccination due to patient refusal 10/08/2023 Has a number of non-scientific based beliefs which interfere with his understanding and acceptance of the medical benefit of vaccination. Nonrheumatic aortic valve stenosis 10/08/2023 Paroxysmal A-fib ([facility]) ([facility]) 08/18/2023 Tobacco abuse 10/08/2023 [2] Past Surgical History: Procedure Laterality Date APPENDECTOMY CARDIAC CATHETERIZATION N/A 10/09/2024 Performed by Bob Watson MD at [facility] Cardiac Cath/EP Lab CARDIAC CATHETERIZATION Bilateral 11/01/2024 Performed by Bob Watson MD at [facility] Cardiac Cath/EP Lab CARDIAC CATHETERIZATION N/A 11/01/2024 Performed by Bob Watson MD at [facility] Cardiac Cath/EP Lab COLONOSCOPY N/A 01/24/2025 Performed by Chadd Davis MD at [facility] ENDOSCOPY FISTULAGRAM (HISTORICAL) Left 09/15/2021 LEFT UPPER ARM HX AV FISTULA CREATION IR EMBOLIZATION 10/14/2024 IR EMBOLIZATION 10/14/2024 [facility] SPECIAL PROCEDURES IR FISTULAGRAM 08/07/2022 IR FISTULAGRAM 08/07/2022 [facility] IR IMAGING TONSILLECTOMY (HISTORICAL) [3] Social History Socioeconomic History Marital status: Tobacco Use Smoking status: Former Current packs/day: 1.00 Average packs/day: 1.4 packs/day for 31.3 years (45.1 ttl pk-yrs) Types: Cigarettes Start date: 1993 Passive exposure: Past Smokeless tobacco: Never Tobacco comments: Started at 28, 3 PPD, tapered down to 1 PPD in 2020 after quitting drinking. 10/27/24 Vaping Use Vaping status: Never Used Substance and Sexual Activity Alcohol use: Not Currently Drug use: Never Sexual activity: Not Currently Social Drivers of Health Financial Resource Strain: Patient Declined (02/21/2025) Overall Financial Resource Strain (CARDIA) Difficulty of Paying Living Expenses: Patient declined Food Insecurity: No Food Insecurity (02/21/2025) Hunger Vital Sign Worried About Running Out of Food in the Last Year: Never true Ran Out of Food in the Last Year: Never true Transportation Needs: No Transportation Needs (02/21/2025) PRAPARE - Transportation Lack of Transportation (Medical): No Lack of Transportation (Non-Medical): No Physical Activity: Inactive (02/21/2025) Exercise Vital Sign Days of Exercise per Week: 0 days Minutes of Exercise per Session: 0 min Stress: Stress Concern Present (02/21/2025) [employer] [place] [employer] - Occupational Stress Questionnaire Feeling of Stress : To some extent Social Connections: Unknown (02/21/2025) Social Connection and Isolation Panel [NHANES] Frequency of Communication with Friends and Family: More than three times a week Frequency of Social Gatherings with Friends and Family: Patient declined Attends Bahai Services: Patient declined Active Member of Clubs or Organizations: Patient declined Attends Club or Organization Meetings: Patient declined Marital Status: Patient declined Intimate Partner Violence: Not At Risk (02/21/2025) Humiliation, Afraid, Rape, and Kick questionnaire Fear of Current or Ex-Partner: No Emotionally Abused: No Physically Abused: No Sexually Abused: No Housing Stability: Low Risk (02/21/2025) Housing Stability Vital Sign Unable to Pay for Housing in the Last Year: No Number of Times Moved in the Last Year: 0 Homeless in the Last Year: No [4] Family History Problem Relation Name Age of Onset No Known Problems Mother No Known Problems Father Cosigned by Prince Ramirez MD at 02/24/2025 10:05 AM EDT Associated attestation - Prince Ramirez MD - 02/24/2025 10:05 AM EDT ATTENDING ADDENDUM Active Diagnoses/Problems this Admission: Problem List[1] I personally supervised the resident physician in the evaluation and development of a treatment plan for this patient on the same day of service as above. I personally discussed the review of systems and interviewed the patient along with performing a physical examination. I reviewed the recent events, imaging, labs, vital signs. In addition, I discussed the patient's condition and treatment options with him/her when possible. I have also reviewed and agree with the past medical, family, and social history unless otherwise noted. All of the patient's questions were answered and family updated when appropriate and possible. A complete review of systems was obtained and is negative except as stated in HPI and/or Subjective Section. Please note that the plan below is highlights/francis components and corrections; see the main resident note for the full Assessment/Plan. -as per Dr. Bey's note -I evaluated patient on 02/23/25 -Chief Complaint/Reason for Consult: request for PEG tube removal -HPI as below, received trach and PEG on 2/18/25 -trach has been decannulated for sometime -has not used PEG at all of late, reasonable to remove -PEG tube removed -diet as tolerated -continue daily dressing change until tract is completely closed/healed -please call with questions or new concerns Total Care Time throughout the day today was >= 55 minutes (including chart/data review/analysis, care coordination, and [id number] encounter), and was spent discussing/counseling the patient/family regarding the care plan for Jun Snyder. I examined the patient independently. I reviewed relevant data myself and may have also done so in the context of team rounds. A full chart review was performed. Level of Medical Decision Making: []High [x]Moderate []Low Complexity: []Acute or chronic illness/injury posing a threat to life or bodily function without treatment (HIGH) []Chronic illness with severe exacerbation, progression, or side effect of treatment (HIGH) [x]Chronic illness with mild to moderate exacerbation, progression, or side effect of treatment (MOD) []Previously undiagnosed (new) problem with uncertain prognosis (MOD) []Acute illness with systemic symptoms (MOD) []Acute, complicated injury (MOD) []Multiple stable chronic illnesses (MOD) Risk: []Parental controlled substances (HIGH) []Decision not to resuscitate or to de-escalate care because of poor prognosis (HIGH) []Decision regarding major surgery with identified patient or procedure risk factors (HIGH) []Decision regarding emergency surgery (HIGH) []Drug or treatment/therapy requiring intensive monitoring (HIGH) []Prescription drug management (MOD) [x]Decision regarding surgery with identified patient or procedure risk factors (MOD) []Diagnosis or treatment significantly limited by social determinants of health (MOD) Personally Reviewed/Independently interpreted patient's: [x]Epic notes [x]Radiology studies [x]Labs []EKG []Ordering tests []Other Discussed/ With: [x]Patient/Family []RN []Consultants [x]Primary Team []SW/TCC []Other Time was spent: -Reviewing the medical record, including recent tests and results -Ordering prescription medications/tests and procedures -Communicating results to the patient/family/caregiver -Counseling/educating the patient/family/caregiver -Documenting clinical information in the patient's electronic record -Co-ordination of care for the patient -Performing a medically appropriate exam and evaluation Prinec Ramirez MD, FACS Trauma, Surgical Critical Care, & Acute Care Surgery Department of Surgery [facility] Pager: [phone] ~~~~~~~~~~~~~~~~~~~~~~~~~~~~~~~~ ~~~~~~~~~~~~~~~~~~~~~~~~~~~~~ This note may have been dictated using [employer] [facility] Edition 2.6 and/or [employer] Voice Recognition Feature. The document was proofread; however, unrecognized voice recognition open cut examiner errors may be present. [1] Patient Active Problem List Diagnosis Anemia Paroxysmal A-fib ([facility]) ([facility]) HTN (hypertension) ESRD on hemodialysis ([facility]) ([facility]) 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 Diverticulosis Nonrheumatic aortic valve stenosis Calcification of abdominal aorta ([facility]) Missed vaccination due to patient refusal Tobacco abuse Alcohol use disorder in remission Atrial flutter, unspecified type ([facility]) RSV (acute bronchiolitis due to respiratory syncytial virus) Aortic stenosis Upper GI bleed S/P AVR Acute hypoxic respiratory failure ([facility]) Acute encephalopathy Pneumoperitoneum Gastric ulceration Severe malnutrition ([facility]) ([facility]) Pleural effusion Peritonitis due to fungus ([facility]) History of abdominal surgery Leg DVT (deep venous thromboembolism), acute, left ([facility]) 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, 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 of skin ([facility]) 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[facility]) Leukocytosis Decubitus ulcer of sacral region, unstageable ([facility]) Pneumonia of both lungs due to methicillin susceptible Staphylococcus aureus (MSSA) ([facility]) Sacral osteomyelitis ([facility]) ([facility]) Acute respiratory failure with hypoxia ([facility]) [J96.01] Tracheostomy care ([facility]) [Z43.0] 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[facility]) senior living (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 Complication of tracheostomy ([facility]) ([facility]) BRBPR (bright red blood per rectum) Hemoptysis Associated Order(s): IP CONSULT TO INFECTIOUS DISEASES Images from the original note were not included. [facility] - Infectious Diseases Attending Consult Note Reason for Consult: Cavitary lung lesions History of Present Illness: Jun is a 59 y.o. male with past medical history below who presents with. Patient history includes ESRD on HD, HTN, paroxysmal A-fib on warfarin. Patient recently admitted to this facility 01/19 for accidental removal of tracheostomy, patient also was treated for GI bleed at that time and anticoagulation ultimately was restarted. Patient states was at dialysis session earlier today when had sudden onset of cough with bright blood. Initial ED workup noted sodium at 133. K+ decreased at 3.1. BUN/creat at 29/2.57. Glucose of 80. WBCs WNL at 9.4. Hgb decreased but appears around baseline at 8.7. INR obtained, subtherapeutic at 1.4. Vital signs note normotensive pressures, HR in 80s. Patient is afebrile. Patient briefly on supplemental O2 2 L however now currently in mid 90s on room air. Will admit for further evaluation and management. -Patient has known history of sacral osteomyelitis-on last admission ID was consulted for cultures positive for E faecalis and Clostridium. Patient reports completing IV ampicillin 1 week ago - CTA Chest 1. Small, apparently isolated filling defect in right lower lobe subsegmental pulmonary artery of uncertain significance. Clinical correlation and follow-up as indicated. 2. No other, apparent large vessel or central pulmonary emboli. 3. Diffuse, multifocal opacities and possible infiltrates, with peripheral distribution and internal bronchograms versus partial cavitation, which may represent nonspecific infectious or inflammatory process and pneumonitis. Differential diagnosis also includes septic emboli and neoplastic or metastatic disease. Clinical correlation and follow-up to resolution advised. 4. Small bilateral pleural effusions. 5. Cholelithiasis, and diminutive [place] kidneys. Past Medical History: Medical History[1] Past Surgical History: Surgical History[2] Current Medications: Current Medications[3] Allergies: Allergies[4] Social History: Social History Socioeconomic History Marital status: Spouse name: Not on file Number of children: Not on file Years of education: Not on file Highest education level: Not on file Occupational History Not on file Tobacco Use Smoking status: Former Current packs/day: 1.00 Average packs/day: 1.4 packs/day for 31.3 years (45.1 ttl pk-yrs) Types: Cigarettes Start date: 1993 Passive exposure: Past Smokeless tobacco: Never Tobacco comments: Started at 28, 3 PPD, tapered down to 1 PPD in 2020 after quitting drinking. 10/27/24 Vaping Use Vaping status: Never Used Substance and Sexual Activity Alcohol use: Not Currently Drug use: Never Sexual activity: Not Currently Other Topics Concern Not on file Social History Narrative Not on file Social Drivers of Health Financial Resource Strain: Patient Declined (02/21/2025) Overall Financial Resource Strain (CARDIA) Difficulty of Paying Living Expenses: Patient declined Food Insecurity: No Food Insecurity (02/21/2025) Hunger Vital Sign Worried About Running Out of Food in the Last Year: Never true Ran Out of Food in the Last Year: Never true Transportation Needs: No Transportation Needs (02/21/2025) PRAPARE - Transportation Lack of Transportation (Medical): No Lack of Transportation (Non-Medical): No Physical Activity: Inactive (02/21/2025) Exercise Vital Sign Days of Exercise per Week: 0 days Minutes of Exercise per Session: 0 min Stress: Stress Concern Present (02/21/2025) [employer] [place] [employer] - Occupational Stress Questionnaire Feeling of Stress : To some extent Social Connections: Unknown (02/21/2025) Social Connection and Isolation Panel [NHANES] Frequency of Communication with Friends and Family: More than three times a week Frequency of Social Gatherings with Friends and Family: Patient declined Attends Bahai Services: Patient declined Active Member of Clubs or Organizations: Patient declined Attends Club or Organization Meetings: Patient declined Marital Status: Patient declined Intimate Partner Violence: Not At Risk (02/21/2025) Humiliation, Afraid, Rape, and Kick questionnaire Fear of Current or Ex-Partner: No Emotionally Abused: No Physically Abused: No Sexually Abused: No Housing Stability: Low Risk (02/21/2025) Housing Stability Vital Sign Unable to Pay for Housing in the Last Year: No Number of Times Moved in the Last Year: 0 Homeless in the Last Year: No Family History: Family History[5] Review of Systems: As per HPI Vitals: Patient Vitals for the past 24 hrs: BP Temp Temp src Pulse Resp SpO2 Height Weight 02/22/25 1245 122/77 -- -- 85 -- -- -- -- 02/22/25 1230 142/82 -- -- 82 -- -- -- -- 02/22/25 1215 139/73 -- -- 79 -- -- -- -- 02/22/25 1200 134/79 -- -- 87 -- -- -- -- 02/22/25 1145 130/73 -- -- 85 -- -- -- -- 02/22/25 1130 123/74 -- -- 80 -- -- -- -- 02/22/25 1115 138/83 -- -- 95 -- -- -- -- 02/22/25 1100 131/80 -- -- 82 -- -- -- -- 02/22/25 1045 136/77 -- -- 79 -- -- -- -- 02/22/25 1030 131/81 -- -- 81 -- -- -- -- 02/22/25 1015 129/79 -- -- 82 -- -- -- -- 02/22/25 1000 132/78 -- -- 85 -- -- -- -- 02/22/25 0945 129/79 -- -- 88 -- -- -- -- 02/22/25 0930 131/76 36.4 C (97.6 F) -- 88 20 95 % -- -- 02/22/25 0643 131/82 36.7 C (98 F) Temporal 91 20 95 % -- -- 02/22/25 0149 126/71 36.8 C (98.3 F) Temporal 84 20 95 % -- -- 02/21/25 2221 152/84 36.4 C (97.6 F) Temporal 93 19 96 % -- -- 02/21/25 1726 144/88 36.5 C (97.7 F) Temporal 88 16 100 % -- -- 02/21/25 1448 -- -- -- -- -- -- 5' 10 (1.778 m) -- 02/21/25 1400 -- -- -- -- -- -- -- 134 lb 11.2 oz (61.1 kg) 02/21/25 1330 141/76 36.4 C (97.5 F) Temporal 85 16 96 % -- -- Physical Exam: General Appearance: Alert, NAD, on room air Left AVF HEENT: wnl Neck: Supple Chest wall: healed sternal incision Lungs: Clear to auscultation Cardiovascular: RRR Gastrointestinal: Soft NT, ND, BS+, no palpable masses, hernia : no CVAT. No payne Neurologic: wnl Skin: No rashes Psychiatry: alert and oriented Extremities: No edema, No joint inflammation Lines: sites clean Labs: Recent Labs 02/20/25182402/21/255202/22/25 0100 NA 133* 131* 132* K 3.1* 3.1* 3.4* CL 92* 91* 94* CO2 BUN 29* 29* 36* CREATININE 2.57* 2.89* 3.99* GLUCOSE 80 74 121* CALCIUM 9.6 9.3 9.2 PROT -- 6.8 6.7 BILITOT -- 0.8 0.6 ALKPHOS -- 120 120 AST -- 39* 35* ALT -- 8 9 PROCAL -- 0.68* -- Recent Labs 02/20/25182402/21/255202/22/25 0100 WBC 9.4 7.0 9.0 HGB 8.7* 8.3* 7.8* HCT 26.8* 25.7* 24.5* PLT 312 316 282 Micro: Resp cx: in process Pneumonia pcr panel: staph aureus, klebsiella oxytoca Legionella and strep: negative MRSA by PCR: in process Lines: HD AVF PIV Radiography/Echo/Other: CTA: small isolated filling defect in the right lower lobe subsegmental pulmonary artery of uncertain significance Diffuse multifocal opacities, peripheral distribution, internal bronchogram vs partial cavitation Antimicrobials,Start/End Dates: Vancomycin 02/21 Zosyn 02/21 Impression: Cavitary lung lesions - r/o endocarditis H/o prosthetic aortic valve IGA nephropathy ESRD on HD HTN Paroxysmal A fib Plan: Pneumonia pcr: staph aureus Follow resp cx: in process Check blood cx Check TTE C/w vancomycin Monitor serum creatinine and vancomycin trough C/w zosyn Follow respiratory cx: Patient has IGA nephropathy and now hemoptysis- if all infectious workup is negative will consider Goodpasture's syndrome Trend wbc and temp Total time 75 minutes on this day of encounter includes counseling, coordinating plan of care, record and documentation review before and after visit including documentation and time not explicitly included on EMR time stamp for accounting for open encounter. Hussain Quintana MD 02/22/2025 12:49 PM [1] Past Medical History: Diagnosis Date Acute renal failure (ARF) ([facility]) 10/19/2019 Anemia 12/30/2021 Calcification of abdominal aorta ([facility]) 10/08/202309/[address] abd Diverticulosis 10/08/2023 ESRD on hemodialysis ([facility] [place]) ([facility]) 10/26/2019 Hemodialysis patient ([facility] [place]) ([facility]) HTN (hypertension) 12/01/2022 Hypertension IgA nephropathy 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 10/26/2019 Missed vaccination due to patient refusal 10/08/2023 Has a number of non-scientific based beliefs which interfere with his understanding and acceptance of the medical benefit of vaccination. Nonrheumatic aortic valve stenosis 10/08/2023 Paroxysmal A-fib ([facility] [place]) ([facility]) 08/18/2023 Tobacco abuse 10/08/2023 [2] Past Surgical History: Procedure Laterality Date APPENDECTOMY CARDIAC CATHETERIZATION N/A 10/09/2024 Performed by Bob Watson MD at [facility] Cardiac Cath/EP Lab CARDIAC CATHETERIZATION Bilateral 11/01/2024 [facility] [facility] Cardiac Cath/EP Lab CARDIAC CATHETERIZATION N/A 11/01/2024 Performed by Bob Watson MD at [facility] Cardiac Cath/EP Lab COLONOSCOPY N/A 01/24/2025 Performed by Chadd Davis MD at [facility] ENDOSCOPY FISTULAGRAM (HISTORICAL) Left 09/15/2021 LEFT UPPER ARM HX AV FISTULA CREATION IR EMBOLIZATION 10/14/2024 IR EMBOLIZATION 10/14/2024 [facility] SPECIAL PROCEDURES IR FISTULAGRAM 08/07/2022 IR FISTULAGRAM 08/07/2022 [facility] IR IMAGING TONSILLECTOMY (HISTORICAL) [3] Current Facility-Administered Medications Medication Dose Route Frequency Provider Last Rate Last Admin acetaminophen (Tylenol) tablet 650 mg 650 mg Oral q6h PRN Bettye Pierre MD Or acetaminophen (Tylenol) suppository 650 mg 650 mg Rectal q6h PRN Bettye Pierre MD albuterol (2.5 MG/3ML) 0.083% nebulizer solution 2.5 mg 2.5 mg Nebulization q4h PRN Bettye Pierre MD B complex-vitamin C-folic acid (Nephrocaps) capsule 1 capsule 1 capsule Oral Daily Bettye Pierre MD 1 capsule at 02/22/25 0809 heparin 25,000 units in dextrose 5% 250mL infusion (premix) 5-30 Units/kg/hr IntraVENous Continuous Ramón Romano MD 10.2 mL/hr at 02/22/25 0738 18 Units/kg/hr at 02/22/25 0738 heparin injection 2,268 Units 40 Units/kg IntraVENous PRN Ramón Romano MD heparin injection 4,536 Units 80 Units/kg IntraVENous PRN Ramón Romano MD ipratropium-albuterol (Duo-Neb) 0.5-2.5 mg/3 mL nebulizer solution 3 mL 3 mL Nebulization q4h PRN Bettye Pierre MD melatonin tablet 3 mg 3 mg Oral Nightly PRN Bettye Pierre MD metoprolol tartrate (Lopressor) tablet 25 mg 25 mg Oral BID Bettye Pierre MD 25 mg at 02/22/25 0809 naloxone (Narcan) injection 0.4 mg 0.4 mg IntraVENous q5 min PRN Bettye Pierre MD ondansetron ODT (Zofran-ODT) disintegrating tablet 4 mg 4 mg Oral q8h PRN Bettye Pierre MD Or ondansetron (Zofran) injection 4 mg 4 mg IntraVENous q6h PRN Bettye Pierre MD oxyCODONE (Roxicodone) immediate release tablet 5 mg 5 mg Oral q6h PRN Bettye Pierre MD 5 mg at 02/22/25 0809 pantoprazole (ProtoNix) EC tablet 40 mg 40 mg Oral qAM AC Ramón Romano MD 40 mg at 02/22/25 0531 piperacillin-tazobactam (Zosyn) 2,250 mg in sodium chloride 0.9 % 50 mL IVPB Mini-Bag Plus 2,250 mg IntraVENous q6h Elly Jett MD Stopped at 02/22/25 1049 polyethylene glycol (PEG) 3350 (Miralax) packet 17 g 17 g Oral Daily PRN Bettye Pierre MD potassium chloride CR (Klor-Con M10) ER tablet 40 mEq 40 mEq Oral Daily PRN Bettye Pierre MD QUEtiapine (SEROquel) tablet 25 mg 25 mg Per G Tube Nightly Bettye Pierre MD 25 mg at 02/21/25 2135 sevelamer carbonate (Renvela) tablet 800 mg 800 mg Oral TID WC Bettye Pierre MD 800 mg at 02/22/25 0810 vancomycin (Vancocin) intermittent dosing (placeholder) Other RX Placeholder Elly Jett MD [4] Allergies Allergen Reactions Lisinopril Swelling and Angioedema [5] Family History Problem Relation Name Age of Onset No Known Problems Mother No Known Problems Father Images from the original note were not included. Pharmacy Managed Vancomycin Dosing Service Consult Note Consult Date: 02/22/25 Patient Name: Jun Snyder Allergies: Lisinopril Age: 59 y.o. Sex: male Estimated body mass index is 19.33 kg/m as calculated from the following: Height as of this encounter: 1.778 m (5' 10). Weight as of this encounter: 61.1 kg (134 lb 11.2 oz). DW: 17.2 kg Lab Results Component Value Date CREATININE 3.99 (H) 02/22/2025 CREATININE 2.89 (H) 02/21/2025 BUN 36 (H) 02/22/2025 BUN 29 (H) 02/21/2025 WBC 9.0 02/22/2025 WBC 7.0 02/21/2025 Renal: [x]HD []CRRT []PD Consulted By: Dr. Elly Jett Vancomycin Level: []Trough [x]Random --> date/time future collection 02/22 - 4 hrs after HD Infectious Diagnosis: Pneumonia (target level = 15-20 mg/L) Antimicrobials: Patient recently received an antibiotic (last 12 hours) Date/Time Action Medication Dose Rate 02/22/25 0531 New Bag piperacillin-tazobactam (Zosyn) 2,250 mg in sodium chloride 0.9 % 50 mL IVPB Mini-Bag Plus 2,250 mg 16.67 mL/hr 02/22/25 0056 New Bag piperacillin-tazobactam (Zosyn) 2,250 mg in sodium chloride 0.9 % 50 mL IVPB Mini-Bag Plus 2,250 mg 16.67 mL/hr Assessment/Plan: Intermittent vancomycin dosing (Pulse Dosing). Vancomycin 1 gm given x1 on 02/21. HD is on a T// schedule with planned HD today. Will check level 4hrs post-HD and re-dose based on results. Follow renal status closely. Thank you for this consult. Please page/call with questions. Date: 02/22/25 Time: 9:31 AM Jolie Uribe RPh (available on [employer]) Associated Order(s): INPATIENT CONSULT TO WOUND CARE PROVIDERS Images from the original note were not included. [facility] Wound Care/NPWT Progress Note Jun Snyder AGE: 59 y.o. GENDER: male : 1965 Subjective: HISTORY of PRESENT ILLNESS HPI Jun Snyder is a 59 y.o. male who presents for a wound care follow up and NPWT application. HPI: 59 y.o. who presents to the emergency department with chief complaint of hemoptysis. Patient was at dialysis today when he started to cough and they noticed he was bringing up pieces of blood. States that it was bright red in the size of a $0.50 piece. Admitted for hemoptysis. Patient with recent admission and discharge and is known to wound care service. Wound Care consulted for multiple wounds. Patient resting in bed at time of visit. NPWT dressing applied to sacral wound with patient tolerating well. PAST MEDICAL HISTORY Medical History[1] PAST SURGICAL HISTORY Surgical History[2] FAMILY HISTORY Family History[3] SOCIAL HISTORY Social History[4] ALLERGIES Allergies[5] MEDICATIONS Medications Ordered Prior to Encounter[6] REVIEW OF SYSTEMS Pertinent items are noted in HPI. Objective: BP 142/82 Pulse 82 Temp 36.4 C (97.6 F) Resp 20 Ht 1.778 m (5' 10) Wt 61.1 kg (134 lb 11.2 oz) SpO2 95% BMI 19.33 kg/m PHYSICAL EXAM General appearance: in no apparent distress, in no respiratory distress and acyanotic, alert, cooperative, and moderately ill, frail and thin appearing Skin: warm and dry Pulmonary: Normal effort, no respiratory distress, no cyanosis Abdomen: soft, nontender, and nondistended Extremities: warm and dry, Palpable DP pulse present +2 Left toes - digits 1-4 - dry gangrene noted with clear demarcation, no odor, no drainage, no sign of infection 02/21/25 02/21/25 Left 5th toe - 0.5x0.5xUTDcm. dry gangrene, no odor, no drainage. Mahnaz-wound intact. 02/21/25 Left plantar heel - 1.0 x 1.0 x utd(cm) 0 wound bed with with dry eschar, no drainage, mahnaz wound tissue intact 02/21/25 Right wrist - small scattered abrasion and bruising noted, small dried exudate noted 02/21/25 Sacrum: Focused assessment on sacral wound VAC dressing change. Patient premedicated for pain with PO pain medication, per chief of staff, prior to wound VAC dressing change. Wet to dry dressing removed from wound bed with saline without any difficulties. Moderate amount of serosang drainage noted from wound. No purulence, bleeding or odor. All wounds and periwounds cleansed with saline, patted dry and cavilon no sting applied to periwound. Patient's full thickness wound measuring 6 x 4 x 1.5 cm with circumferential undermining at 0.8 cm. Wound bed with pink granulation tissue. Applied 1 piece of black foam with bridge to right hip. Non-disposable Wound VAC well sealed at 125 mmHg continuous suction. 02/22/25 LABS CBC: Lab Results Component Value Date WBC 9.0 02/22/2025 HGB 7.8 (L) 02/22/2025 HCT 24.5 (L) 02/22/2025 MCV 91.1 02/22/2025 PLT 282 02/22/2025 BMP: Lab Results Component Value Date NA 132 (L) 02/22/2025 K 3.4 (L) 02/22/2025 CL 94 (L) 02/22/2025 CO2 25 02/22/2025 PHOS 3.2 02/22/2025 BUN 36 (H) 02/22/2025 CREATININE 3.99 (H) 02/22/2025 PT/INR: Lab Results Component Value Date PROTIME 14.9 (H) 02/22/2025 INR 1.4 (H) 02/22/2025 Prealbumin: No results found for: PREALBUMIN Albumin:No components found for: LABALBU Sed Rate:No results found for: SEDRATE Micro: No components found for: BC Assessment/Plan: Nursing staff to perform dressing change: Left toes 1-5: Arterial Ulcer (Unknown) -cleanse with NS, apply Betadine and allow to dry, leave CORPORATE FINANCIAL ANALYST daily and PRN Left plantar heel - unstageable pressure injury (POA): -cleanse with NS, apply Betadine and allow to dry, leave TISHA daily and PRN Right wrist Abrasion: -cleanse with antibacterial soap/water, leave CORPORATE FINANCIAL ANALYST daily Sacral Stage 4 pressure injury (POA): - Next change 02/26/25 - Clean with NS, apply Vac. Place black foam to wound bed at 125mmHg continuous, change 3 times a week and PRN - Change cannister once a week or when full. - If suction fails: - remove vac dressing - cleanse wound with normal saline - pack wound with saline moistened gauze and change every 12 hours -Recommend PVR/Vascular consult for gangrenous toe evaluation -Order P500 bed -waffle chair cushion if up in chair -Q2hr/PRN turns -glide sheets for T&R -continence checks Q1-2 Hrs/PRN Nutritional support Wound Care to follow Recommend to follow up at [facility] wound care center after hospital discharge. Any questions or concerns please secure chat [facility] wound/ostomy. Thank you for the consult! I personally obtained the francis and critical portions of the history and physical exam. I reviewed the labs, imaging studies, and electronic medical record. I reviewed the chart documentation and discussed the patient with treatment team members. I have edited the note to reflect my clinical findings and my assessment and plan. Please note, the time of this note does not reflect the time I saw this patient today, but the time of this documentaton. Portions of this note including HPI, ROS, impression/plan, and examination may have been copied forward from admission to today as to provide important historical information essential in contributing to medical decision making. Documentation has been reviewed and edited as necessary to support clinical decision making for today's visit and to reflect my own independent evaluation of this patient. Decision making for today's visit and to reflect my own independent evaluation of this patient. [1] Past Medical History: Diagnosis Date Acute renal failure (ARF) (HCC) 10/19/2019 Anemia 12/30/2021 Calcification of abdominal aorta ([facility]) 10/08/202309/[address] abd Diverticulosis 10/08/2023 ESRD on hemodialysis ([facility]) ([facility]) 10/26/2019 Hemodialysis patient ([facility]) ([facility]) HTN (hypertension) 12/01/2022 Hypertension IgA nephropathy 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 10/26/2019 Missed vaccination due to patient refusal 10/08/2023 Has a number of non-scientific based beliefs which interfere with his understanding and acceptance of the medical benefit of vaccination. Nonrheumatic aortic valve stenosis 10/08/2023 Paroxysmal A-fib ([facility]) ([facility]) 08/18/2023 Tobacco abuse 10/08/2023 [2] Past Surgical History: Procedure Laterality Date APPENDECTOMY CARDIAC CATHETERIZATION N/A 10/09/2024 Performed by Bob Watson MD at [facility] Cardiac Cath/EP Lab CARDIAC CATHETERIZATION Bilateral 11/01/2024 Performed by Bob Watson MD at [facility] Cardiac Cath/EP Lab CARDIAC CATHETERIZATION N/A 11/01/2024 Performed by Bob Watson MD at [facility] Cardiac Cath/EP Lab COLONOSCOPY N/A 01/24/2025 Performed by Chadd Davis MD at [facility] ENDOSCOPY FISTULAGRAM (HISTORICAL) Left 09/15/2021 LEFT UPPER ARM HX AV FISTULA CREATION IR EMBOLIZATION 10/14/2024 IR EMBOLIZATION 10/14/2024 [facility] SPECIAL PROCEDURES IR FISTULAGRAM 08/07/2022 IR FISTULAGRAM 08/07/2022 [facility] IR IMAGING TONSILLECTOMY (HISTORICAL) [3] Family History Problem Relation Name Age of Onset No Known Problems Mother No Known Problems Father [4] Social History Tobacco Use Smoking status: Former Current packs/day: 1.00 Average packs/day: 1.4 packs/day for 31.3 years (45.1 ttl pk-yrs) Types: Cigarettes Start date: 1993 Passive exposure: Past Smokeless tobacco: Never Tobacco comments: Started at 28, 3 PPD, tapered down to 1 PPD in 2020 after quitting drinking. 10/27/24 Vaping Use Vaping status: Never Used Substance Use Topics Alcohol use: Not Currently Drug use: Never [5] Allergies Allergen Reactions Lisinopril Swelling and Angioedema [6] No current facility-administered medications on file prior to encounter. Current Outpatient Medications on File Prior to Encounter Medication Sig Dispense Refill warfarin (Coumadin) 1 MG tablet Take as directed per After Visit Summary. [DISCONTINUED] ipratropium-albuterol (Duo-Neb) 0.5-2.5 mg/3 mL nebulizer solution Take 3 mL by nebulization every 8 hours. acetaminophen (Tylenol) 325 MG tablet Take 650 mg by mouth every 6 hours as needed for mild pain (1-3), fever or moderate pain (4-6). B complex-vitamin C-folic acid (Nephro-Nato Rx) 1 MG tablet Take 1 tablet by mouth daily. bisacodyl (Dulcolax) 10 MG suppository Insert 10 mg into the rectum Daily as needed for constipation. bisacodyl (Dulcolax) 5 MG EC tablet Take 5 mg by mouth Daily as needed for constipation. Do not crush, chew, or split. ipratropium-albuterol (Duo-Neb) 0.5-2.5 mg/3 mL nebulizer solution Take 3 mL by nebulization every 8 hours as needed for shortness of breath. Lidocaine 4 % patch Apply 1 patch topically daily. magnesium hydroxide (Milk of Magnesia) 800 MG/5ML suspension Take 30 mL by mouth Daily as needed for constipation (if no bm in 3 days). melatonin 5 MG tablet 1 tablet (5 mg) by Per G Tube route Nightly as needed (insomnia). metoprolol tartrate (Lopressor) 25 MG tablet 1 tablet (25 mg) by Per G Tube route 2 times daily. midodrine (Proamatine) 5 MG tablet 3 tablets (15 mg) by Per G Tube route every 6 hours. naloxone in sodium chloride (PF) injection injection Inject 0.04 mg into the shoulder, thigh, or buttocks as needed for opioid reversal or respiratory depression. QUEtiapine (SEROquel) 25 MG tablet 1 tablet (25 mg) by Per G Tube route Nightly. sevelamer (Renagel) 800 MG tablet Take 800 mg by mouth 3 times daily (with meals). Swallow tablet whole; do not crush, break, or chew. Give with meals for CKD/dialysis [DISCONTINUED] Ampicillin-Sulbactam Sodium (UNASYN IV) Infuse 3 g into a venous catheter Every 24 hours. [DISCONTINUED] bisacodyl (Dulcolax) 5 mg split suppository Insert 10 mg into the rectum Daily as needed (PRN constipation). [DISCONTINUED] epoetin rowan-epbx (Retacrit) 06581 UNIT/ML injection Inject 0.79 mL (7,900 Units) under the skin 1 (one) time per week. (Patient not taking: Reported on 02/21/2025) [DISCONTINUED] pantoprazole (ProtoNix) 40 MG injection Infuse 40 mg into a venous catheter 2 times daily. Cosigned by Ahsan Gill DO at 02/26/2025 4:59 PM EDT Associated Order(s): IP CONSULT TO DIETITIAN Nutrition Assessment Type and Reason for Visit: Initial, Positive Nutrition Screen, Consult (supplemental TF, wound) Nutrition Recommendations/Plan: Continue current diet & encourage po intake. Monitor need for renal restrictions. Monitor chew/swallow ability and need for texture/liquids modifications. For consistency to ECF regimen, recommend Nepro with Carb Steady bolus 237ml with H2O flush 135ml twice daily. Recommend Prostat BID for add'l protein due to HD & wounds: Flush feeding tube with 30-60 mL water. Pour 30 mL of Pro-Stat in a 4-6 fl oz container. Add 30-60 mL water and mix well. Administer Pro-Stat via syringe. Flush with 30-60 mL of water. This provides total with Prostat 1039 kcal, 68 gm protein. Monitor nutritional intake and tolerance, labs, weight, renal function, fluid status, skin integrity >>> RD will follow weekly. Malnutrition Assessment: Malnutrition Status: Severe malnutrition Context: Chronic Illness Findings of the 6 clinical characteristics of malnutrition: Energy Intake: Unable to assess Weight Loss: (34.6% loss in < 6 months) Body Fat Loss: Severe body fat loss Orbital, Fat Overlying Ribs Muscle Mass Loss: Severe muscle mass loss Temples (temporalis), Clavicles (pectoralis & deltoids) Fluid Accumulation: Unable to assess Electronic Console Display Operator Strength: Not Performed Nutrition Assessment: 59yo male admitted from ECF 02/20 due to coughing up blood during dialysis session. 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 Labs: Na low 131, K+ low 3.1, BUN elevated 29, Cr elevated 2.89, Phos low 2.0. Medications reviewed (Nephrocaps, PPI, Renvela). Diet advanced from NPO to Regular this morning. At [facility] diet was Potassium Restricted/Mech Soft/Thin + Prostat SF 30cc BID. 2000ml fluid restriction. NovoSource Renal 237cc bolus with 134cc flush BID. Pt sleeping soundly in room, did not waken, noted aggression towards staff. Bed scale shows 134.7# with extra blanket on bed. Did not complete full NFPE due to pt sleeping, but was able to observe upper body with severe muscle/fat wasting. Pt consumed 75-100% turkey, mashed potatoes, banana bread, & chocolate milk for lunch. Estimated Daily Nutrient Needs: Energy Requirements Based On: Kcal/kg Weight Used for Energy Requirements: Current Weight for Energy Calculation (kg): 61.1 kg Total Energy Requirements (kcals/day): 30-35 kcal/kg = 6868-9490 kcal Weight Used for Protein Requirements: Current Weight in Kg Used for Protein Requirements: 61.1 kg Estimated Total Protein (g/day): 1.2-1.5 gm/kg = 73-92 gm Estimated Daily Total Fluid (ml/day): per MD recommendations Nutrition Related Findings: U/L dentures, no edema, Kee 13, PEG tube Wound Type: Wound Vac, Wound Consult Pending, Multiple, Pressure Injury, Stage IV, Unstageable (Left toes 1-5: Arterial Ulcer, Left plantar heel - unstageable pressure injury, Right wrist Abrasion, Sacral Stage 4 pressure injury) Current Nutrition Therapies: Adult diet Regular Current Oral Intake Average Meal Intake: 76-100% (lunch today) Average Supplements Intake: None Ordered Anthropometric Measures: Height: 177.8 cm (5' 10) Current Body Weight: 61.1 kg (134 lb 11.2 oz) Weight Source: Bed Scale Usual Body Weight: 93.4 kg (206 lb) (08/28/24) % Weight Change (Calculated): -34.6 [place] Body Weight (lbs) (Calculated): 166 lbs [place] Body Weight (Kg) (Calculated): 75 kg % [place] Body Weight (Calculated): 81.1 % BMI (kg/m2) (Calculated): 19.3 Weight Adjustment For: No Adjustment BMI Categories: Normal Weight (BMI 18.5-24.9) Wt Readings from Last 10 Encounters: 02/21/25 61.1 kg (134 lb 11.2 oz) 02/14/25 59 kg (130 lb) 02/01/25 46.1 kg (101 lb 10.1 oz) 11/28/24 58.9 kg (129 lb 13.6 oz) 08/28/24 93.4 kg (206 lb) 11/12/23 94.3 kg (208 lb) 10/08/23 93.9 kg (207 lb) 08/17/23 90.7 kg (200 lb) 05/01/23 90.7 kg (200 lb) 08/07/22 90.7 kg (200 lb) Nutrition Diagnosis: Severe malnutrition, In context of chronic illness related to (prolonged admit 10/03-11/28/24- severe s/p aortic valve replacement 10/12 and complicated post op course, multiple intubations s/p trach/PEG, CRRT transitioned to HD, + wounds) as evidenced by weight loss greater than or equal to 10% in 6 months, severe loss of subcutaneous fat, severe muscle loss Nutrition Interventions: Nutrition Education/Counseling: No recommendation at this time Coordination of Nutrition Care: Continue to monitor while inpatient Goals: Goals: PO intake 75% or greater, Initiate nutrition support Nutrition Monitoring and Evaluation: Behavioral-Environmental Outcomes: None Identified Food/Nutrient Intake Outcomes: Food and Nutrient Intake, Supplement Intake, Enteral Nutrition Intake/Tolerance Physical Signs/Symptoms Outcomes: Biochemical Data, GI Status, Fluid Status or Edema, Nutrition Focused Physical Findings, Skin, Weight Discharge Planning: Too soon to determine Jade Rodriguez RD Contact: [employer] or *[phone] Associated Order(s): INPATIENT CONSULT TO WOUND CARE PROVIDERS Images from the original note were not included. [facility] Wound Care CONSULT Note Jun Snyder AGE: 59 y.o. GENDER: male : 1965 Subjective: HISTORY of PRESENT ILLNESS HPI Jun Snyder is a 59 y.o. male who presents for a wound consult. HPI: 59 y.o. who presents to the emergency department with chief complaint of hemoptysis. Patient was at dialysis today when he started to cough and they noticed he was bringing up pieces of blood. States that it was bright red in the size of a $0.50 piece. Admitted for hemoptysis. Patient with recent admission and discharge and is known to wound care service. Wound Care consulted for multiple wounds. Treatment applied at time of visit. Discussed offloading with patient and he refused envella danielle, RN at bedside at time of discussion, will order P500 bed and patient agreed. PAST MEDICAL HISTORY Medical History[1] PAST SURGICAL HISTORY Surgical History[2] FAMILY HISTORY Family History[3] SOCIAL HISTORY Social History[4] ALLERGIES Allergies[5] MEDICATIONS Medications Ordered Prior to Encounter[6] REVIEW OF SYSTEMS Pertinent items are noted in HPI. Objective: BP 141/76 (BP Location: Right arm, Patient Position: Lying) Pulse 85 Temp 36.4 C (97.5 F) (Temporal) Resp 16 Ht 5' 10 (1.778 m) Wt 125 lb (56.7 kg) SpO2 96% BMI 17.94 kg/m PHYSICAL EXAM General appearance: in no apparent distress, in no respiratory distress and acyanotic, alert, cooperative, and moderately ill, frail and thin appearing Skin: warm and dry Pulmonary: Normal effort, no respiratory distress, no cyanosis Abdomen: soft, nontender, and nondistended Extremities: warm and dry, Palpable DP pulse present +2 Left toes - digits 1-4 - dry gangrene noted with clear demarcation, no odor, no drainage, no sign of infection 02/21/25 Left 5th toe - dry gangrene, no odor, no drainage 02/21/25 Left plantar heel - 1.0 x 1.0 x utd(cm) 0 wound bed with with dry eschar, no drainage, mahnaz wound tissue intact 02/21/25 Right wrist - small scattered abrasion and bruising noted, small dried exudate noted 02/21/25 Sacrum - 6.0 x 4.0 x 1.5cm - wound bed with large pink granular tissue, full thickness tissue loss into muscle, mahnaz wound tissue intact 02/21/25 LABS CBC: Lab Results Component Value Date WBC 7.0 02/21/2025 HGB 8.3 (L) 02/21/2025 HCT 25.7 (L) 02/21/2025 MCV 89.9 02/21/2025 PLT 316 02/21/2025 BMP: Lab Results Component Value Date NA 131 (L) 02/21/2025 K 3.1 (L) 02/21/2025 CL 91 (L) 02/21/2025 CO2 28 02/21/2025 PHOS 2.0 (L) 02/21/2025 BUN 29 (H) 02/21/2025 CREATININE 2.89 (H) 02/21/2025 PT/INR: Lab Results Component Value Date PROTIME 14.7 (H) 02/20/2025 INR 1.4 (H) 02/20/2025 Prealbumin: No results found for: PREALBUMIN Albumin:No components found for: LABALBU Sed Rate:No results found for: SEDRATE Micro: No components found for: BC Assessment/Plan: Nursing staff to perform dressing change: Left toes 1-5: Arterial Ulcer (Unknown) Left plantar heel - unstageable pressure injury (POA): -cleanse with NS, apply Betadine and allow to dry, leave CORPORATE FINANCIAL ANALYST daily and PRN Right wrist Abrasion: -cleanse with antibacterial soap/water, leave [employer]PORATE FINANCIAL ANALYST daily Sacral Stage 4 pressure injury (POA): -cleanse with NS, apply NPWT to wound @ 125mmHg-black foam - change M,W,F-start 02/23/25 -if vac fails, start sterile saline wet to dry dressing BID/PRN -Recommend PVR/Vascular consult for gangrenous toe evaluation -Order P500 bed -waffle chair cushion if up in chair -Q2hr/PRN turns -glide sheets for T&R -continence checks Q1-2 Hrs/PRN Nutritional support Wound Care to follow Recommend to follow up at [facility] wound care center after hospital discharge. Any questions or concerns please secure chat [facility] wound/ostomy. Thank you for the consult! I personally obtained the francis and critical portions of the history and physical exam. I reviewed the labs, imaging studies, and electronic medical record. I reviewed the chart documentation and discussed the patient with treatment team members. I have edited the note to reflect my clinical findings and my assessment and plan. Please note, the time of this note does not reflect the time I saw this patient today, but the time of this documentaton. Portions of this note including HPI, ROS, impression/plan, and examination may have been copied forward from admission to today as to provide important historical information essential in contributing to medical decision making. Documentation has been reviewed and edited as necessary to support clinical decision making for today's visit and to reflect my own independent evaluation of this patient. Decision making for today's visit and to reflect my own independent evaluation of this patient. [1] Past Medical History: Diagnosis Date Acute renal failure (ARF) ([facility]) 10/19/2019 Anemia 12/30/2021 Calcification of abdominal aorta ([facility]) 10/08/202309/[address] abd Diverticulosis 10/08/2023 ESRD on hemodialysis ([facility] [place]) ([facility]) 10/26/2019 Hemodialysis patient ([facility] [place]) ([facility]) HTN (hypertension) 12/01/2022 Hypertension IgA nephropathy 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 10/26/2019 Missed vaccination due to patient refusal 10/08/2023 Has a number of non-scientific based beliefs which interfere with his understanding and acceptance of the medical benefit of vaccination. Nonrheumatic aortic valve stenosis 10/08/2023 Paroxysmal A-fib ([facility]) ([facility]) 08/18/2023 Tobacco abuse 10/08/2023 [2] Past Surgical History: Procedure Laterality Date APPENDECTOMY CARDIAC CATHETERIZATION N/A 10/09/2024 Performed by Bob Watson MD at [facility] Cardiac Cath/EP Lab CARDIAC CATHETERIZATION Bilateral 11/01/2024 Performed by Bob Watson MD at [facility] Cardiac Cath/EP Lab CARDIAC CATHETERIZATION N/A 11/01/2024 Performed by Bob Watson MD at [facility] Cardiac Cath/EP Lab COLONOSCOPY N/A 01/24/2025 Performed by Chadd Davis MD at [facility] ENDOSCOPY FISTULAGRAM (HISTORICAL) Left 09/15/2021 LEFT UPPER ARM HX AV FISTULA CREATION IR EMBOLIZATION 10/14/2024 IR EMBOLIZATION 10/14/2024 [facility] SPECIAL PROCEDURES IR FISTULAGRAM 08/07/2022 IR FISTULAGRAM 08/07/2022 [facility] IR IMAGING TONSILLECTOMY (HISTORICAL) [3] Family History Problem Relation Name Age of Onset No Known Problems Mother No Known Problems Father [4] Social History Tobacco Use Smoking status: Former Current packs/day: 1.00 Average packs/day: 1.4 packs/day for 31.3 years (45.1 ttl pk-yrs) Types: Cigarettes Start date: 1993 Passive exposure: Past Smokeless tobacco: Never Tobacco comments: Started at 28, 3 PPD, tapered down to 1 PPD in 2020 after quitting drinking. 10/27/24 Vaping Use Vaping status: Never Used Substance Use Topics Alcohol use: Not Currently Drug use: Never [5] Allergies Allergen Reactions Lisinopril Swelling and Angioedema [6] No current facility-administered medications on file prior to encounter. Current Outpatient Medications on File Prior to Encounter Medication Sig Dispense Refill warfarin (Coumadin) 1 MG tablet Take as directed per After Visit Summary. [DISCONTINUED] ipratropium-albuterol (Duo-Neb) 0.5-2.5 mg/3 mL nebulizer solution Take 3 mL by nebulization every 8 hours. acetaminophen (Tylenol) 325 MG tablet Take 650 mg by mouth every 6 hours as needed for mild pain (1-3), fever or moderate pain (4-6). B complex-vitamin C-folic acid (Nephro-Nato Rx) 1 MG tablet Take 1 tablet by mouth daily. bisacodyl (Dulcolax) 10 MG suppository Insert 10 mg into the rectum Daily as needed for constipation. bisacodyl (Dulcolax) 5 MG EC tablet Take 5 mg by mouth Daily as needed for constipation. Do not crush, chew, or split. ipratropium-albuterol (Duo-Neb) 0.5-2.5 mg/3 mL nebulizer solution Take 3 mL by nebulization every 8 hours as needed for shortness of breath. Lidocaine 4 % patch Apply 1 patch topically daily. magnesium hydroxide (Milk of Magnesia) 800 MG/5ML suspension Take 30 mL by mouth Daily as needed for constipation (if no bm in 3 days). melatonin 5 MG tablet 1 tablet (5 mg) by Per G Tube route Nightly as needed (insomnia). metoprolol tartrate (Lopressor) 25 MG tablet 1 tablet (25 mg) by Per G Tube route 2 times daily. midodrine (Proamatine) 5 MG tablet 3 tablets (15 mg) by Per G Tube route every 6 hours. naloxone in sodium chloride (PF) injection injection Inject 0.04 mg into the shoulder, thigh, or buttocks as needed for opioid reversal or respiratory depression. [] oxyCODONE (Roxicodone) 5 MG immediate release tablet Take 1 tablet (5 mg) by mouth every 6 hours as needed for moderate pain (4-6) for up to 5 days. 15 tablet 0 QUEtiapine (SEROquel) 25 MG tablet 1 tablet (25 mg) by Per G Tube route Nightly. sevelamer (Renagel) 800 MG tablet Take 800 mg by mouth 3 times daily (with meals). Swallow tablet whole; do not crush, break, or chew. Give with meals for CKD/dialysis [DISCONTINUED] Ampicillin-Sulbactam Sodium (UNASYN IV) Infuse 3 g into a venous catheter Every 24 hours. [DISCONTINUED] bisacodyl (Dulcolax) 5 mg split suppository Insert 10 mg into the rectum Daily as needed (PRN constipation). [DISCONTINUED] epoetin rowan-epbx (Retacrit) 14294 UNIT/ML injection Inject 0.79 mL (7,900 Units) under the skin 1 (one) time per week. (Patient not taking: Reported on 02/21/2025) [DISCONTINUED] pantoprazole (ProtoNix) 40 MG injection Infuse 40 mg into a venous catheter 2 times daily. Cosigned by Ahsan Gill DO at 02/26/2025 4:59 PM EDT Associated Order(s): IP CONSULT TO PULMONOLOGY Images from the original note were not included. [facility] [phone] PULMONARY CONSULTATION NOTE. Patient - Jun Snyder, Age - 59 y.o. - 1965 Room Number - W3-334/W3-334 A Consulting - Ramón Romano MD Primary Care Physician - Leilani Gomezon Date of Admission - 02/20/2025 5:41 PM Hospital Day - 1 History of Present Illness Jun Snyder is a 59 y.o. male with past medical history of ESRD on dialysis, hypertension, paroxysmal A-fib, CABG with mechanical valve placement on warfarin, history of tracheostomy after cardiac arrest post CABG later tracheostomy reversed, PEG tube placed, history of GI bleed 1 month ago, initially presented to the hospital with a complaint of hemoptysis. Patient is on chronic anticoagulation. 2 days ago patient started having pink frothy sputum during dialysis which later got worse and started having streaks of blood with a cough. Does not have any fever, chill, shortness of breath or any other respiratory symptoms. Of note patient was previously trached and accidental removal of trach happened in December. Currently on room air. In ED patient was hemodynamically stable. Hemoglobin remained at baseline. PT/INR was 1.4 subtherapeutic. WBC within normal limit. CT scan of the chest done showed diffuse, multifocal opacities with infiltrates and possible cavitary lesion, concerning for infectious process. Patient previously had a positive blood culture with Propionibacterium. No other positive blood culture in the recent past. But had multiple infections in the wound and lower resp tract. Patient is followed up with infectious disease for wound infection with osteomyelitis and lower respiratory tract infection with MSSA and was on multiple antibiotics including vancomycin, meropenem, linezolid, micafungin and anidulafungin for Estrada glabrata. During November, patient had bilateral pleural effusion after CABG and pleural fluid showed transudative in nature. No growth in the culture present. Pulmonary team has been consulted for further management of hemoptysis. Past Medical History PEA arrest s/p ROSC CAD s/p CABG Atrial fibrillation Mechanical valve replacement On chronic anticoagulation ESRD on dialysis Sacral wound with osteomyelitis History of tracheostomy s/p trach dislodgment Past Surgical History Surgical History[1] Allergies Allergies[2] Medications Medication Documentation Review Audit Reviewed by Esther Robbins RN (Registered Nurse) on 02/21/25 at 0203 Medication Order Taking? Sig Documenting Provider Last Dose Status acetaminophen (Tylenol) 325 MG tablet [id number] No Take 650 mg by mouth every 6 hours as needed for mild pain (1-3) or fever. Patient not taking: Reported on 02/21/2025 Historical Provider, Unknown Active Ampicillin-Sulbactam Sodium (UNASYN IV) [id number] Infuse 3 g into a venous catheter Every 24 hours. Historical Provider, 02/14/25 2359 B complex-vitamin C-folic acid (Nephro-Nato Rx) 1 MG tablet [id number] Take 1 tablet by mouth daily. Historical ProviderMD Active bisacodyl (Dulcolax) 5 MG EC tablet [id number] Take 5 mg by mouth Daily as needed for constipation. Do not crush, chew, or split. Historical Provider, Active bisacodyl (Dulcolax) 5 mg split suppository [id number] Insert 10 mg into the rectum Daily as needed (PRN constipation). Historical Provider, Active epoetin rowan-epbx (Retacrit) 20466 UNIT/ML injection [id number] No Inject 0.79 mL (7,900 Units) under the skin 1 (one) time per week. Patient not taking: Reported on 02/21/2025 DENIA Girard CNP Unknown Active ipratropium-albuterol (Duo-Neb) 0.5-2.5 mg/3 mL nebulizer solution [id number] Yes Take 3 mL by nebulization every 8 hours. DENIA Girard CNP Past Week Active Lidocaine 4 % patch [id number] Apply 1 patch topically daily. DENIA Girard CNP Active magnesium hydroxide (Milk of Magnesia) 800 MG/5ML suspension [id number] Take 30 mL by mouth Daily as needed for constipation (if no bm in 3 days). Historical Provider, Active melatonin 5 MG tablet [id number] 1 tablet (5 mg) by Per G Tube route Nightly as needed (insomnia). DENIA Girard CNP Active metoprolol tartrate (Lopressor) 25 MG tablet [id number] 1 tablet (25 mg) by Per G Tube route 2 times daily. DENIA Girard CNP Active midodrine (Proamatine) 5 MG tablet [id number] 3 tablets (15 mg) by Per G Tube route every 6 hours. DENIA Girard CNP 02/14/25 235 naloxone in sodium chloride (PF) injection injection [id number] Inject 0.04 mg into the shoulder, thigh, or buttocks as needed for opioid reversal or respiratory depression. Historical Provider, Active oxyCODONE (Roxicodone) 5 MG immediate release tablet [id number] Take 1 tablet (5 mg) by mouth every 6 hours as needed for moderate pain (4-6) for up to 5 days. Barb Dawkins MD 02/14/25 235 pantoprazole (ProtoNix) 40 MG injection [id number] Infuse 40 mg into a venous catheter 2 times daily. DENIA Girard CNP Active QUEtiapine (SEROquel) 25 MG tablet [id number] 1 tablet (25 mg) by Per G Tube route Nightly. DENIA Girard CNP 02/14/25 235 sevelamer (Renagel) 800 MG tablet [id number] Take 800 mg by mouth 3 times daily (with meals). Swallow tablet whole; do not crush, break, or chew. Give with meals for CKD/dialysis Historical Provider, Active warfarin (Coumadin) 1 MG tablet [id number] Yes Take as directed per After Visit Summary. DENIA Girard CNP 02/19/2025 Active Social History Social History Tobacco Use Smoking status: Former Current packs/day: 1.00 Average packs/day: 1.4 packs/day for 31.3 years (45.1 ttl pk-yrs) Types: Cigarettes Start date: 1993 Passive exposure: Past Smokeless tobacco: Never Tobacco comments: Started at 28, 3 PPD, tapered down to 1 PPD in 2020 after quitting drinking. 10/27/24 Substance Use Topics Alcohol use: Not Currently Family History Family History[3] Review of Systems Review of Systems Constitutional: Positive for fatigue. Negative for chills and fever. Respiratory: Positive for cough. Negative for apnea, choking, chest tightness, shortness of breath, wheezing and stridor. Cardiovascular: Negative for chest pain, palpitations and leg swelling. Physical Exam Vitals: 02/21/25 0029 02/21/25 0059 02/21/25 0630 02/21/25 0928 BP: 145/89 128/78 131/75 BP Location: Right arm Right arm Right arm Patient Position: Lying Lying Lying Pulse: 89 89 84 83 Resp: 17 16 16 16 Temp: 36.6 C (97.8 F) 36.6 C (97.9 F) 36.6 C (97.8 F) TempSrc: Temporal Temporal Temporal SpO2: 94% 95% 95% 93% Weight: Height: Physical Exam Constitutional: Comments: cachectic Cardiovascular: Rate and Rhythm: Normal rate and regular rhythm. Pulses: Normal pulses. Heart sounds: Normal heart sounds. Pulmonary: Effort: Pulmonary effort is normal. No respiratory distress. Breath sounds: Normal breath sounds. No stridor. No wheezing, rhonchi or rales. Chest: Chest wall: No tenderness. Musculoskeletal: Right lower leg: No edema. Left lower leg: No edema. Skin: Capillary Refill: Capillary refill takes less than 2 seconds. Neurological: Mental Status: He is alert and oriented to person, place, and time. LABS and Studies: CBC: Recent Labs 02/20/25182402/21/25 005 WBC 9.4 7.0 HGB 8.7* 8.3* HCT 26.8* 25.7* PLT 312 316 BMP: Recent Labs 02/20/25182402/21/25 005 NA 133* 131* K 3.1* 3.1* CL 92* 91* CO2 29 28 BUN 29* 29* CREATININE 2.57* 2.89* GLUCOSE 80 74 CALCIUM 9.6 9.3 MG -- 2.2 PHOS -- 2.0* HEPATIC: Recent Labs 02/21/25 0053 AST 39* ALT 8 BILITOT 0.8 ALKPHOS 120 LACTATE: No lab exists for component: LACTA PROCALCITONIN: Recent Labs 02/21/2552 PROCAL 0.68* TROPONIN: No results for input(s): TROPONINI in the last 72 hours. BNP: No results for input(s): BNP in the last 72 hours. INR: Recent Labs 02/20/25 1825 INR 1.4* BLOOD GAS: No results for input(s): PH, PCO2, PO2, HCO3, O2SAT in the last 72 hours. Cultures: Blood Cx: Lab Results Component Value Date BLOODCX No growth at 5 days 01/01/2025 Gram Stain: Lab Results Component Value Date LABGRAM (A) 01/02/2025 Many Polymorphonuclear leukocytes per low power field LABGRAM Many Gram positive cocci (A) 01/02/2025 LABGRAM Moderate Gram positive bacilli (A) 01/02/2025 Sputum Cx: Lab Results Component Value Date RESPCULT Rare respiratory ila present. 12/30/2024 RESPCULT Many Staphylococcus aureus (A) 12/30/2024 PNA PCR: Lab Results Component Value Date HUMANMETAPNE Not Detected 11/15/2024 COVID19: No results found for: COVID19 Legionella Ag: Lab Results Component Value Date LEGIONELLAPN Not Detected 11/14/2024 Strep Ag: No results for input(s): STREPPNEUMO in the last 72 hours. No lab exists for component: LABURIN Radiology: CT-scan of the chest (personally reviewed and interpreted by me) -diffuse, multifocal opacities with infiltrates and possible cavitary lesion, concerning for infectious process. PFT's Pulmonary Functions Testing Results: Personally reviewed and interpreted by me - no pft on file Assessment: Jun Snyder is a 59 y.o. male with past medical history of ESRD on dialysis, hypertension, paroxysmal A-fib, CABG with mechanical valve placement on warfarin, history of tracheostomy after cardiac arrest post CABG later tracheostomy reversed, PEG tube placed, history of GI bleed 1 month ago, initially presented to the hospital with a complaint of hemoptysis. He is currently being managed for Hemoptysis in the setting of bilateral cavitary lesion, CT scan concerning for diffuse multifocal peripheral opacities with cavitation. History of community-acquired pneumonia and hospital-acquired pneumonia History of bilateral pleural effusion s/p thoracentesis. Current CT scan showed improved pleural effusion. History of tracheostomy, accidental dislodgment in December. Currently breathing in room air. Chronic anticoagulation due to mechanical valve replacement along with history of A-fib. Goal INR 2-3, currently subtherapeutic INR 1.4 History of CABG Hypertension ESRD on dialysis Electrolyte imbalance Chronic normocytic normothermic anemia Plan: Patient complained of being frothy sputum 2 days ago and also blood streak coming out with cough. Considering radiological finding, highly suspicion for infection. Started antibiotic with vancomycin and Zosyn. Infectious workup sent. Will follow MRSA PCR, pneumonia PCR, viral panel, fungal culture, respiratory culture from sputum and, strep pneumo and Legionella urine antigen for now. Will consider bronchoscopy if patient cannot able to give sample and send BAL for further infectious workup. Recommend ID consult considering previous MSSA LRTI infection. Also patient has been on and off multiple antibiotics for wound infection and osteomyelitis. Less likely vasculitis etiology, ESR 53. CRP added. Can be coagulopathic but with subtherapeutic INR less likely anticoagulation is still reason for hemoptysis. Currently on heparin drip. Will follow daily PT/INR, APTT. Currently on room air. Breathing treatment if needed. Pulmonary team will continue to follow. Thank you very much for this consultation, we will follow along closely with you. Elly Jett MD PGY- 4 Pulmonary and Critical Care Medicine [1] Past Surgical History: Procedure Laterality Date APPENDECTOMY CARDIAC CATHETERIZATION N/A 10/09/2024 Performed by Bob Watson MD at [facility] Cardiac Cath/EP Lab CARDIAC CATHETERIZATION Bilateral 11/01/2024 Performed by Bob Watson MD at [facility] Cardiac Cath/EP Lab CARDIAC CATHETERIZATION N/A 11/01/2024 Performed by Bob Watson MD at [facility] Cardiac Cath/EP Lab COLONOSCOPY N/A 01/24/2025 Performed by Chadd Davis MD at [facility] ENDOSCOPY FISTULAGRAM (HISTORICAL) Left 09/15/2021 LEFT UPPER ARM HX AV FISTULA CREATION IR EMBOLIZATION 10/14/2024 IR EMBOLIZATION 10/14/2024 [facility] SPECIAL PROCEDURES IR FISTULAGRAM 08/07/2022 IR FISTULAGRAM 08/07/2022 [facility] IR IMAGING TONSILLECTOMY (HISTORICAL) [2] Allergies Allergen Reactions Lisinopril Swelling and Angioedema [3] Family History Problem Relation Name Age of Onset No Known Problems Mother No Known Problems Father Cosigned by Angeles Blackburn DO at 02/21/2025 4:01 PM EDT Associated attestation - Angeles Blackburn DO - 02/21/2025 4:01 PM EDT I have personally performed a [id number] diagnostic evaluation on this patient on date of service 02/21/2025. History, labs, imaging studies, and electronic medical record have been reviewed by me. This note documented by the [x]house mover supervisor []ARMIN reflects my history, exam, and medical decision making. I have reviewed and agree with the care plan except as documented below. 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 Reported that symptoms began a few days ago with pink-tinged sputum. Admitted to one episode of dark clot, but no further hemoptysis since admission. Admitted to increased cough. Denied any fevers, chills. Hemoptysis Multiple cavitary pulmonary lesions Small pleural effusions S/p tracheostomy, decannulated in December -Chest imaging reviewed, cavitary lesions appear new compared to chest CT in October, but may have been developing on chest x-rays in December. - No leukocytosis, elevated Pro-Jc. CRP elevated. Agree with ordered infectious evaluation. Prior sputum cultures with MSSA. Additionally with Clostridium, Enterococcus, Estrada from wounds. Continue with broad-spectrum antibiotics while infectious evaluation is pending. If unable to produce sputum sample may require bronchoscopy -Pleural effusions appear too small for thora at this time -Satting well on RA Associated Order(s): IP CONSULT TO NEPHROLOGY [facility] [address] [place] [address] Consult Note Patient's Name: Jun Snyder 10:29 AM 02/21/2025 Reason for Consult: ESRD ATTENDING/ADMITTING PHYSICIAN:Ramón Romano MD Chief Complaint: hemoptysis History Obtained From: patient History of Present Ilness: Jun Snyder is a 59 y.o. 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 Patient recently admitted to this facility 01/19 for accidental removal of tracheostomy, patient also was treated for GI bleed at that time now back on anticoags. Pt presents to ER for hemoptysis. Pt states he began to cough up blood mid dialysis session yesterday at his facility nephrology consulted for ESRD mgt. Pt seen and examined at bedside denies any CP SOB NVD . Medical History[1] Surgical History[2] Family History[3] reports that he has quit smoking. His smoking use included cigarettes. He started smoking about 31 years ago. He has a 45.1 pack-year smoking history. He has been exposed to tobacco smoke. He has never used smokeless tobacco. He reports that he does not currently use alcohol. He reports that he does not use drugs. Allergies: Lisinopril Current Medications: @MEDCURRENTMDSOR@ Review of Systems: 10 ROS negative other than stated above Physical exam: BP 131/75 (BP Location: Right arm, Patient Position: Lying) Pulse 83 Temp 36.6 C (97.8 F) (Temporal) Resp 16 Ht 1.778 m (5' 10) Wt 56.7 kg (125 lb) SpO2 93% BMI 17.94 kg/m General: AAO x 3, speaking in full sentences, no accessory muscle use. Chest: CTAB , no rales or wheezes. Cardiac: S1 S2 RR, no murmurs, gallops or rubs, JVP not raised. Abdomen: Soft, non-tender, no masses or organomegaly, BS audible. : No suprapubic or flank tenderness. Neuro: AAO x 3, No FND. SKIN: No rashes, good skin turgor. Extremities: No edema, palpable peripheral pulses, no calf tenderness. Labs: Recent Labs 02/20/255 02/21/25 0053 WBC 9.4 7.0 HGB 8.7* 8.3* HCT 26.8* 25.7* MCV 88.4 89.9 PLT 312 316 Recent Labs 02/20/25182402/21/25 0053 NA 133* 131* K 3.1* 3.1* CL 92* 91* CO2 29 28 GLUCOSE 80 74 PHOS -- 2.0* MG -- 2.2 BUN 29* 29* CREATININE 2.57* 2.89* Ionized Calcium: No components found for: IONCA Magnesium: Lab Results Component Value Date MG 2.2 02/21/2025 Phosphorus: Lab Results Component Value Date PHOS 2.0 (L) 02/21/2025 Input / Output: 24 HR: No intake or output data in the 24 hours ending 02/21/25 1029 IV Intake: Payne: Imaging: CT angiogram IMPRESSION: 1. Small, apparently isolated filling defect in right lower lobe subsegmental pulmonary artery of uncertain significance. Clinical correlation and follow-up as indicated. 2. No other, apparent large vessel or central pulmonary emboli. 3. Diffuse, multifocal opacities and possible infiltrates, with peripheral distribution and internal bronchograms versus partial cavitation, which may represent nonspecific infectious or inflammatory process and pneumonitis. Differential diagnosis also includes septic emboli and neoplastic or metastatic disease. Clinical correlation and follow-up to resolution advised. 4. Small bilateral pleural effusions. 5. Cholelithiasis, and diminutive [place] kidneys. Assessment and Plan: 59 y.o. 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 Patient recently admitted to this facility 01/19 for accidental removal of tracheostomy, patient also was treated for GI bleed at that time now back on anticoags. Pt presents to ER for hemoptysis. Nephrology consultedf or ESRD management. ESRD on T TS HD - last hd yesterday we will keep the patient in TTS. - we will arrange for HD tomorrow see orders - AVF Volume. - Bp acceptable - UF as tolerated with HD Electrolytes Hyponatremia. Likely from poor solute intake - should improve with HD - check Sna in AM Hypokalemia Adjustment and stabilization with HD Anemia in CKD. 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 Feel free to reach out with any questions or concerns Bree Molina APRN [employer] A-G CASTING COORDINATOR [facility] [phone] Pt seen and examined independently by me. I reviewed with FUEL CELL ENGINEER-[employer] SALES ENGINEER the medical history and the findings on physical examination. I discussed the patient s diagnosis and concur with the treatment plan as documented in his note. Please call [phone] or message me through [facility] with any questions or concerns. [1] Past Medical History: Diagnosis Date Acute renal failure (ARF) ([facility]) 10/19/2019 Anemia 12/30/2021 Calcification of abdominal aorta ([facility]) 10/08/202309/[address] abd Diverticulosis 10/08/2023 ESRD on hemodialysis ([facility]) ([facility]) 10/26/2019 Hemodialysis patient ([facility]) ([facility]) HTN (hypertension) 12/01/2022 Hypertension IgA nephropathy 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 10/26/2019 Missed vaccination due to patient refusal 10/08/2023 Has a number of non-scientific based beliefs which interfere with his understanding and acceptance of the medical benefit of vaccination. Nonrheumatic aortic valve stenosis 10/08/2023 Paroxysmal A-fib ([facility]) ([facility]) 08/18/2023 Tobacco abuse 10/08/2023 [2] Past Surgical History: Procedure Laterality Date APPENDECTOMY CARDIAC CATHETERIZATION N/A 10/09/2024 Performed by Bob Watson MD at [facility] Cardiac Cath/EP Lab CARDIAC CATHETERIZATION Bilateral 11/01/2024 Performed by Bob Watson MD at [facility] Cardiac Cath/EP Lab CARDIAC CATHETERIZATION N/A 11/01/2024 Performed by Bob Watson MD at [facility] Cardiac Cath/EP Lab COLONOSCOPY N/A 01/24/2025 Performed by Chadd Davis MD at [facility] ENDOSCOPY FISTULAGRAM (HISTORICAL) Left 09/15/2021 LEFT UPPER ARM HX AV FISTULA CREATION IR EMBOLIZATION 10/14/2024 IR EMBOLIZATION 10/14/2024 [facility] SPECIAL PROCEDURES IR FISTULAGRAM 08/07/2022 IR FISTULAGRAM 08/07/2022 [facility] IR IMAGING TONSILLECTOMY (HISTORICAL) [3] Family History Problem Relation Name Age of Onset No Known Problems Mother No Known Problems Father documented in this encounter [facility] 02-23-2025 Telephone encount er Note Hello, can we please schedule a 6-week CT scan for this patient and a follow-up appointment after this? Thank you [facility] 02-22-2025 Hospital Discharg elder Hurtado, DO - 02/22/2025 2:54 PM EDT Images from the original note were not included. Continuity of Care Form Patient Name: Jun Snyder : 1965 Admit date: 02/20/2025 Discharge date: 03/05/2025 Code Status Order: Full Code Advance Directives: Y Admitting Physician: Bettye Pierre MD PCP: Leilani Troncoso Discharging Nurse: Discharging Hospital Unit/Room#: W3-334/W3-334 A Discharging Unit Emergency Contact: Extended Emergency Contact Information Primary Emergency Contact: Omar Snyder Mobile Relation: Child Secondary Emergency Contact: Tarun,Toma Mobile Relation: Partner Past Surgical History: Past Surgical History: Procedure Laterality Date APPENDECTOMY CARDIAC CATHETERIZATION N/A 10/09/2024 Performed by Bob Watson MD at [facility] Cardiac Cath/EP Lab CARDIAC CATHETERIZATION Bilateral 11/01/2024 Performed by Bob Watson MD at [facility] Cardiac Cath/EP Lab CARDIAC CATHETERIZATION N/A 11/01/2024 Performed by Bob Watson MD at [facility] Cardiac Cath/EP Lab COLONOSCOPY N/A 01/24/2025 Performed by Chadd Davis MD at [facility] ENDOSCOPY FISTULAGRAM (HISTORICAL) Left 09/15/2021 LEFT UPPER ARM HX AV FISTULA CREATION IR EMBOLIZATION 10/14/2024 IR EMBOLIZATION 10/14/2024 [facility] SPECIAL PROCEDURES IR FISTULAGRAM 08/07/2022 IR FISTULAGRAM 08/07/2022 [facility] IR IMAGING TONSILLECTOMY (HISTORICAL) Immunization History: Immunization History Administered Date(s) Administered Hep B, Unspecified 11/15/2019, 12/19/2019, 01/19/2020, 05/20/2020 Active Problems: Medical Problems Problem List * (Principal) Hemoptysis Paroxysmal A-fib (CMS/HCC) (HCC) HTN (hypertension) ESRD on hemodialysis (CMS/HCC) (HCC) 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 Diverticulosis Nonrheumatic aortic valve stenosis Calcification of abdominal aorta (HCC) Overview Signed 10/08/2023 4:44 PM by Jr Shah MD 09/[address] abd Missed vaccination due to patient refusal Overview Signed 10/08/2023 4:54 PM by Jr Shah MD Has a number of non-scientific based beliefs which interfere with his understanding and acceptance of the medical benefit of vaccination. Tobacco abuse Alcohol use disorder in remission Atrial flutter, unspecified type (HCC) RSV (acute bronchiolitis due to respiratory syncytial virus) Gastric ulceration Severe malnutrition (CMS/HCC) (HCC) (Chronic) Pleural effusion Peritonitis due to fungus (HCC) History of abdominal surgery Leg DVT (deep venous thromboembolism), acute, left (HCC) 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, 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) 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HCC) Leukocytosis Decubitus ulcer of sacral region, unstageable (HCC) Pneumonia of both lungs due to methicillin susceptible Staphylococcus aureus (MSSA) ([facility]) Sacral osteomyelitis (CMS/HCC) ([facility]) Acute respiratory failure with hypoxia ([facility]) [J96.01] Tracheostomy care ([facility]) [Z43.0] 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[facility]) rn long term care (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 Complication of tracheostomy (CMS/HCC) ([facility]) Anemia Aortic stenosis Upper GI bleed S/P AVR Acute hypoxic respiratory failure ([facility]) Acute encephalopathy Pneumoperitoneum BRBPR (bright red blood per rectum) Isolation/Infection: No active isolations No active infections Nurse Assessment: Last Vital Signs: BP 142/87 Pulse 85 Temp 36.3 C (97.4 F) Resp 20 Ht 1.778 m (5' 10) Wt 61.1 kg (134 lb 11.2 oz) SpO2 96% BMI 19.33 kg/m Last documented pain score (0-10 scale): Last Weight: Wt Readings from Last 1 Encounters: 02/21/25 61.1 kg (134 lb 11.2 oz) Mental Status: ROSENDO Patient Mental Status: oriented and alert IV Access: ROSENDO IV Access: None Nursing Mobility/ADLs: Walking Minimal assistance Transfer Minimal assistance Bathing Minimal assistance Dressing Minimal assistance Toileting Minimal assistance Feeding Independent Weigher And Crusher Minimal assistance Med Delivery yes Wound Care Documentation and Therapy: Wound/Incision 11/13/24 Pressure Injury Sacrum (Active) Site Assessment Unable to assess;Other (Comment) 02/21/25 0512 Odor None 02/21/25 0512 Drainage Amount Other (Comment) 02/21/25 0512 Treatments Other (Comment) 02/21/25 0512 Primary Dressing Vacuum dressing 02/21/25 0512 Dressing Status Other (Comment) 02/21/25 0512 Number of days: 101 Wound/Incision 11/15/24 Traumatic Arm Anterior;Left;Upper (Active) Number of days: 99 Wound/Incision 11/15/24 Other (comment) Toe - third Anterior;Left (Active) Number of days: 98 Wound/Incision 11/19/24 Traumatic Achilles Left (Active) Number of days: 94 Wound/Incision 11/19/24 Traumatic Heel Left (Active) Number of days: 94 Wound/Incision 01/19/25 Pressure Injury Head Posterior;Medial (Active) Number of days: 34 Wound/Incision 01/28/25 Foot Left (Active) Number of days: 25 Wound/Incision Other (comment) Heel Left (Active) Site Assessment Unable to assess 02/21/25 05 Drainage Description Unable to assess 02/21/25 05 Drainage Amount Unable to assess 02/21/25 05 Treatments Cleansed 02/22/25 0800 Primary Dressing Open to air 02/22/25 0800 Number of days: Elimination: Continence: Bowel: yes Bladder: yes Urinary Catheter: None Colostomy/Ileostomy/Ileal Conduit: None Date of Last BM: 03/05/2025 Intake/Output Summary (Last 24 hours) at 02/22/2025 1453 Last data filed at 02/22/2025 1300 Gross per 24 hour Intake 414.7 ml Output 100 ml Net 314.7 ml I/O last 3 completed shifts: In: 114.7 (1.9 mL/kg) [I.V.:114.7 (1.9 mL/kg)] Out: 100 (1.6 mL/kg) [Urine:100 (0 mL/kg/hr)] Weight: 61.1 kg Safety Concerns: at risk for falls Impairments/Disabilities: vision and hearing Nutrition Therapy: Current Nutrition Therapy: Oral diet: general Routes of Feeding: oral Liquids: thin liquids Daily Fluid Restriction: no Last Modified Barium Swallow with Video (Video Swallowing Test): not done Treatments at the Time of Hospital Discharge: Respiratory Treatments: N/A Oxygen Therapy: is not on home oxygen therapy. Ventilator: No ventilator support Rehab Therapies: physical therapy and occupational therapy Weight Bearing Status/Restrictions: no restriction Other Medical Equipment (for information only, NOT a DME order): walker Other Treatments: N/A Patient's personal belongings (please select all that are sent with patient): emmanuel PITT SIGNATURE: MANAGEMENT/SOCIAL WORK SECTION Inpatient Status Date: 02/20/25 Discharging to Facility/ Agency Name: [facility] Address: [address] [place] [address] Dialysis Facility (if applicable) Name: Address: Dialysis Schedule: Phone: Fax: Licensed Physical Therapy Assistant/Physician Internist signature: ICIAN SECTION Name: Jun Snyder Prognosis: excellent Condition at Discharge: stable Rehab Potential (if transferring to Rehab): excellent Recommended Labs or Other Treatments After Discharge: BMP/CBC/INR within 1 day. Follow up with PCP within 1 week to review all medications and findings of this admission. Coumadin dosing Date INR Dose 03/05 - 1.8 - 7.5mg 6/8 - 1.5 - 7.5 mg 6/7 - 1.6 - 6 mg 6/6 - 1.4 - 5mg 6/5 - 1.4 - 4mg 6/4 - 1.3 - 3mg 6/3 - 1.3 - 2mg 6/2 - 1.3 - 1.5mg 6/ - 1.3 - 1 mg 02/24 - 1.3 - 1 mg The individual is being admitted to a nursing facility directly from an [facility] or a unit of a [facility] that is not operated by or licensed by [facility] under section 5119.14 or 5160-3-15.1 5 The individual requires the level of services provided by a nursing facility for the condition for which he or she was treated in the hospital and, Physician Certification: I certify the above information and transfer of Jun Snyder is necessary for the continuing treatment of the diagnosis listed and that he requires custodial facility for less than 30 days. Update Admission H&P: No change in H&P PHYSICIAN SIGNATURE: plet Anthony Hurtado DO - 03/05/2025 3:43 PM EDT Coumadin dosing Date INR Dose 6/9 - 1.8 - 7.5mg 6/8 - 1.5 - 7.5 mg 6/7 - 1.6 - 6 mg 6/6 - 1.4 - 5mg 6/5 - 1.4 - 4mg 6/4 - 1.3 - 3mg 6/3 - 1.3 - 2mg 6/2 - 1.3 - 1.5mg 6/ - 1.3 - 1 mg 31 - 1.3 - 1 mg documented in this encounter [facility] 02-21-2025 Telephone encount er Note Name of caller: Pamdini Contact phone number: [phone] Relationship to Patient: [facility] Provider: Mariano Practice: Infectious Disease Chief Complaint/Reason for Call: [facility] need a routine consult for this patient for Hemoptysis Cavitary lung lesion. Please advise Haiku Best time of day caller can be reached: any Patient advised that office/PCP has 24-48 business hours to return their call: Yes [facility] 02-21-2025 Miscellaneous Notes Formattin g of this note might be different from the original. Name of caller: Padmini Contact phone number: [phone] Relationship to Patient: [facility] Provider: Mariano Practice: Infectious Disease Chief Complaint/Reason for Call: [facility] need a routine consult for this patient for Hemoptysis Cavitary lung lesion. Please advise Haiku Best time of day caller can be reached: any Patient advised that office/PCP has 24-48 business hours to return their call: Yes documented in this encounter [facility] 02-21-2025 Note Referral placed to [facility] via [facility] per TCC request. Await review and response regarding ability to accept. TCC notified. Electronically signed by NELSON Rodrigues [facility] 02-20-2025 History and physical note Attending History and Physical Admit Date: 02/20/2025 PCP: Leilani Troncoso CHIEF COMPLAINT: Hemoptysis x 1 day Reason for Admission: Same as above History Obtained From: patient, EMR HISTORY OF PRESENT ILLNESS: Jun is a 59 y.o. male with past medical history below who presents with. Patient history includes ESRD on HD, HTN, paroxysmal A-fib on warfarin. Patient recently admitted to this facility 01/19 for accidental removal of tracheostomy, patient also was treated for GI bleed at that time and anticoagulation ultimately was restarted. Patient states was at dialysis session earlier today when had sudden onset of cough with bright blood. Initial ED workup noted sodium at 133. K+ decreased at 3.1. BUN/creat at 29/2.57. Glucose of 80. WBCs WNL at 9.4. Hgb decreased but appears around baseline at 8.7. INR obtained, subtherapeutic at 1.4. Vital signs note normotensive pressures, HR in 80s. Patient is afebrile. Patient briefly on supplemental O2 2 L however now currently in mid 90s on room air. Will admit for further evaluation and management. -Patient has known history of sacral osteomyelitis-on last admission ID was consulted for cultures positive for E faecalis and Clostridium. Patient reports completing IV ampicillin 1 week ago - CTA Chest 1. Small, apparently isolated filling defect in right lower lobe subsegmental pulmonary artery of uncertain significance. Clinical correlation and follow-up as indicated. 2. No other, apparent large vessel or central pulmonary emboli. 3. Diffuse, multifocal opacities and possible infiltrates, with peripheral distribution and internal bronchograms versus partial cavitation, which may represent nonspecific infectious or inflammatory process and pneumonitis. Differential diagnosis also includes septic emboli and neoplastic or metastatic disease. Clinical correlation and follow-up to resolution advised. 4. Small bilateral pleural effusions. 5. Cholelithiasis, and diminutive [place] kidneys. Past Medical History: Past Medical History: Diagnosis Date Acute renal failure (ARF) ([facility]) 10/19/2019 Anemia 12/30/2021 Calcification of abdominal aorta (HCC) 10/08/202309/[address] abd Diverticulosis 10/08/2023 ESRD on hemodialysis ([facility]) ([facility]) 10/26/2019 Hemodialysis patient ([facility]) ([facility]) HTN (hypertension) 12/01/2022 Hypertension IgA nephropathy 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 10/26/2019 Missed vaccination due to patient refusal 10/08/2023 Has a number of non-scientific based beliefs which interfere with his understanding and acceptance of the medical benefit of vaccination. Nonrheumatic aortic valve stenosis 10/08/2023 Paroxysmal A-fib ([facility]) ([facility]) 08/18/2023 Tobacco abuse 10/08/2023 Past Surgical History: Surgical History[1] Social History: Social History Socioeconomic History Marital status: Spouse name: Not on file Number of children: Not on file Years of education: Not on file Highest education level: Not on file Occupational History Not on file Tobacco Use Smoking status: Former Current packs/day: 1.00 Average packs/day: 1.4 packs/day for 31.3 years (45.1 ttl pk-yrs) Types: Cigarettes Start date: 1993 Passive exposure: Past Smokeless tobacco: Never Tobacco comments: Started at 28, 3 PPD, tapered down to 1 PPD in 2020 after quitting drinking. 10/27/24 Vaping Use Vaping status: Never Used Substance and Sexual Activity Alcohol use: Not Currently Drug use: Never Sexual activity: Not Currently Other Topics Concern Not on file Social History Narrative Not on file Social Drivers of Health Financial Resource Strain: Patient Unable To Answer (12/01/2024) Received from [facility] Overall Financial Resource Strain (CARDIA) Difficulty of Paying Living Expenses: Patient unable to answer Food Insecurity: Patient Unable To Answer (12/01/2024) Received from [facility] Hunger Vital Sign Worried About Running Out of Food in the Last Year: Patient unable to answer Ran Out of Food in the Last Year: Patient unable to answer Transportation Needs: No Transportation Needs (01/18/2025) Received from [facility] Transportation Source Has lack of transportation kept you from medical appointments or from getting medications?: No Has lack of transportation kept you from meetings, work, or from getting things needed for daily living?: No Physical Activity: Not on file Stress: No Stress Concern Present (01/18/2025) Received from [facility] of Occupational Health - Occupational Stress Questionnaire Feeling of Stress : Not at all Social Connections: Patient Unable To Answer (12/01/2024) Received from [facility] Social Connection and Isolation Panel [NHANES] Frequency of Communication with Friends and Family: Patient unable to answer Frequency of Social Gatherings with Friends and Family: Patient unable to answer Attends Bahai Services: Patient unable to answer Active Member of Clubs or Organizations: Patient unable to answer Attends Club or Organization Meetings: Patient unable to answer Marital Status: Patient unable to answer Intimate Partner Violence: Patient Unable To Answer (11/28/2024) Received from [facility] Domestic Abuse Assessment Do you feel safe in your relationships at home?: Unable to assess Physical Abuse: Unable to assess [facility] Domestic Abuse - Type of Abuse: Not on file [facility] Domestic Abuse - Time Frame: Not on file [facility] Domestic Abuse - Signs and Symptoms: Not on file Verbal Abuse: Unable to assess [facility] Domestic Abuse - Reported To: Not on file Housing Stability: Patient Unable To Answer (12/01/2024) Received from [facility] Stability Vital Sign Unable to Pay for Housing in the Last Year: Patient unable to answer Number of Times Moved in the Last Year: 0 Homeless in the Last Year: Patient unable to answer Family History: Family History[2] Medications Reconciliation: Medications were reviewed in chart but unable to verify accurate with patient Allergies: Allergies[3] REVIEW OF SYSTEMS: 10 point ROS obtained, as per HPI, otherwise NEG Vitals: BP (!) 149/86 (BP Location: Left arm, Patient Position: Lying) Pulse 83 Temp 36.6 C (97.9 F) (Oral) Resp 18 Ht 5' 10 (1.778 m) Wt 125 lb (56.7 kg) SpO2 99% BMI 17.94 kg/m BMI Classification: Underweight (BMI <18.5) Pulse Ox: SpO2 Av % Min: 99 % Max: 99 % Supplemental O2: O2 Flow Rate (L/min): 3 L/min PHYSICAL EXAM: Physical Exam Constitutional: General: He is awake. HENT: Head: Normocephalic and atraumatic. Eyes: General: Vision grossly intact. Gaze aligned appropriately. Extraocular Movements: Extraocular movements intact. Cardiovascular: Rate and Rhythm: Normal rate and regular rhythm. Pulmonary: Effort: Pulmonary effort is normal. Breath sounds: Normal breath sounds. No wheezing, rhonchi or rales. Comments: No cough noted during my assessment Abdominal: Comments: PEG tube Skin: General: Skin is warm and dry. Comments: Limited examination due to patient preference. VAC appears in place for sacral wound Neurological: General: No focal deficit present. Mental Status: He is alert and oriented to person, place, and time. Cranial Nerves: Cranial nerves 2-12 are intact. Psychiatric: Behavior: Behavior is cooperative. DATA: CBC: Recent Labs 02/20/25 1825 WBC 9.4 RBC 3.03* HGB 8.7* HCT 26.8* MCV 88.4 RDW 18.8* PLT 312 BMP: Recent Labs 02/20/25 1825 NA 133* K 3.1* CL 92* CO2 29 BUN 29* CREATININE 2.57* GLUCOSE 80 CALCIUM 9.6 ANIONGAP 12 LIVER PROFILE:No results for input(s): AST, ALT, BILITOT, ALKPHOS, PROT in the last 72 hours. No lab exists for component: LABALBU PT/INR: Recent Labs 02/20/251824 PROTIME 14.7* INR 1.4* CARDIAC ENZYMES: No results for input(s): TROPONINI in the last 72 hours. Procalcitonin: No results found for: PROCAL Urine Culture: No results found for this or any previous visit. COVID-19 PCR: No results for input(s): COVID19 in the last 72 hours. I reviewed: [x] laboratory results [x] radiographic results At the time of today's encounter. Pt was advised of the results. Data: (LOW: 2x CAT1 or independent historian MOD: 3x CAT1 or 1x CAT3 EXTENSIVE: 3x CAT1 and 1x CAT3) Assessment Discussed management with the ED provider and agree with hospitalization. Acute, acute on chronic, unstable/uncontrolled chronic problems/diagnoses: Recent tracheostomy removal, current hemoptysis - Warfarin held-patient currently subtherapeutic. Will require bridging when cleared by surgical specialty to restart anticoagulation - N.p.o., sips with meds - Cardiothoracic surgery consulted for assessment Stable chronic problems affecting care, new non-acute diagnoses: End-stage renal disease on hemodialysis - AM labs - Nephrology specialty consulted - Nephrocaps - Renvela 800 mg 2. Sacral wound. Recently completed IV antibiotics for osteomyelitis - Wound care consulted for management Plan As a result of the above findings & factors, the following mgmt was pursued: - am labs, replace lytes prn - PT/OT/CM/SW - delirium precautions: increase activity and limit nighttime disturbances - DVT prophylaxis: SCDs and encourage ambulation Complexity: Chronic illness with mild to moderate exacerbation, progression, or side effect of tx (MOD). Acute illness with systemic symptoms (MOD). Risk: Admission to hospital-level care was considered or occurred (HIGH). Advance Directive: Prior Anticipated Discharge - Date -02/23 - Location -TBD Total time spent (which include face to face and non face to face encounters) : 75 minutes. Extended Emergency Contact Information Primary Emergency Contact: Omar Snyder Mobile Relation: Child Secondary Emergency Contact: Toma Mcneil Mobile Relation: Partner Bettye Pierre MD Division of Hospital Medicine [facility] [1] Past Surgical History: Procedure Laterality Date APPENDECTOMY CARDIAC CATHETERIZATION N/A 10/09/2024 Performed by Bob Watson MD at [facility] Cardiac Cath/EP Lab CARDIAC CATHETERIZATION Bilateral 11/01/2024 Performed by Bob Watson MD at [facility] Cardiac Cath/EP Lab CARDIAC CATHETERIZATION N/A 11/01/2024 Performed by Bob Watson MD at [facility] Cardiac Cath/EP Lab COLONOSCOPY N/A 01/24/2025 Performed by Chadd Davis MD at [facility] ENDOSCOPY FISTULAGRAM (HISTORICAL) Left 09/15/2021 LEFT UPPER ARM HX AV FISTULA CREATION IR EMBOLIZATION 10/14/2024 IR EMBOLIZATION 10/14/2024 [facility] SPECIAL PROCEDURES IR FISTULAGRAM 08/07/2022 IR FISTULAGRAM 08/07/2022 [facility] IR IMAGING TONSILLECTOMY (HISTORICAL) [2] Family History Problem Relation Name Age of Onset No Known Problems Mother No Known Problems Father [3] Allergies Allergen Reactions Lisinopril Swelling and Angioedema documented in this encounter [facility] 02-20-2025 Note [facility] 02-20-2025 Emergency department Note Called report to 3W nurse who will be taking over pt care. Attempted to reposition pt and have him sit up but pt states he feels fine and does not want to sit updespite coughing up blood. Pt placed on 2L NC due to O2 saturation of 90%. Currently 97 on 2L Suction turned on at this time for pt due to increased coughing up of blood Pt has wound on his coccyx and presents with a wound vac. I asked the patient if I could take a photo for the chart and he states that it is covered and I cannot remove the dressing that is placed. Wound is being cared for by custodial facility where he resides EMERGENCY DEPARTMENT ENCOUNTER Pt Name: Jair Snyder Birthdate 1965 Date of evaluation: 02/20/2025 ED Provider: Palak Thurman DO CHIEF COMPLAINT Chief Complaint Patient presents with Coughing Up Blood Pt arrives via EMS due to coughing up blood. This began around 1200 today while he was at dialysis. Pt endorses nausea, but denies any related abdominal pain. 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 HISTORY OF PRESENT ILLNESS (Location/Symptom, Timing/Onset, Context/Setting, Quality, Duration, Modifying Factors, Severity) Note limiting factors. I wore appropriate PPE for the entirety of this encounter. HPI Jair Snyedr is a 59 y.o. who presents to the emergency department with chief complaint of hemoptysis. Patient was at dialysis today when he started to cough and they noticed he was bringing up pieces of blood. States that it was bright red in the size of a $0.50 piece. He is denying chest pain or shortness of breath. Had a full dialysis session and then sent to the ED. He is on warfarin. Recently hospitalized with tracheostomy removal. Nursing Notes were reviewed. Limitations to history: None Outside historians: None REVIEW OF SYSTEMS Review of Systems Pertinent positives and negatives as per HPI. PAST MEDICAL HISTORY Medical History[1] SURGICAL HISTORY Surgical History[2] CURRENT MEDICATIONS Previous Medications EPOETIN ROWAN-EPBX (RETACRIT) 90144 UNIT/ML INJECTION Inject 0.79 mL (7,900 Units) under the skin 1 (one) time per week. IPRATROPIUM-ALBUTEROL (DUO-NEB) 0.5-2.5 MG/3 ML NEBULIZER SOLUTION Take 3 mL by nebulization every 8 hours. LIDOCAINE 4 % PATCH Apply 1 patch topically daily. MELATONIN 5 MG TABLET 1 tablet (5 mg) by Per G Tube route Nightly as needed (insomnia). METOPROLOL TARTRATE (LOPRESSOR) 25 MG TABLET 1 tablet (25 mg) by Per G Tube route 2 times daily. MIDODRINE (PROAMATINE) 5 MG TABLET 3 tablets (15 mg) by Per G Tube route every 6 hours. PANTOPRAZOLE (PROTONIX) 40 MG INJECTION Infuse 40 mg into a venous catheter 2 times daily. QUETIAPINE (SEROQUEL) 25 MG TABLET 1 tablet (25 mg) by Per G Tube route Nightly. WARFARIN (COUMADIN) 1 MG TABLET Take as directed per After Visit Summary. ALLERGIES Lisinopril FAMILY HISTORY Family History[3] SOCIAL HISTORY Social History[4] SCREENINGS PHYSICAL EXAM ED Triage Vitals Temp Heart Rate Resp BP 02/20/25 1751 02/20/25 1751 02/20/25 17502/20/25 175 36.6 C (97.9 F) 86 18 135/81 SpO2 Temp Source Heart Rate Source Patient Position 02/20/25201202/20/25 17502/20/25 17502/20/25 175 99 % Oral Monitor Lying BP Location FiO2 (%) 02/20/251750 -- Right arm Physical Exam Vitals and nursing note reviewed. Constitutional: General: He is not in acute distress. Appearance: He is well-developed. He is ill-appearing. HENT: Head: Normocephalic and atraumatic. Mouth/Throat: Mouth: Mucous membranes are dry. Pharynx: Oropharynx is clear. Comments: Tracheostomy scar well-healed Eyes: Conjunctiva/sclera: Conjunctivae normal. Cardiovascular: Rate and Rhythm: Normal rate and regular rhythm. Pulses: Normal pulses. Heart sounds: Normal heart sounds. No murmur heard. Pulmonary: Effort: Pulmonary effort is normal. No respiratory distress. Breath sounds: Normal breath sounds. Abdominal: General: There is no distension. Palpations: Abdomen is soft. Tenderness: There is no abdominal tenderness. Comments: PEG tube Musculoskeletal: General: No swelling. Normal range of motion. Cervical back: Normal range of motion and neck supple. Skin: General: Skin is warm and dry. Capillary Refill: Capillary refill takes less than 2 seconds. Comments: Wound VAC to the sacrum Neurological: General: No focal deficit present. Mental Status: He is alert. Mental status is at baseline. DIAGNOSTIC RESULTS Procedures/EKG: EKG was reviewed by myself. Physician EKG interpretation can be found in [facility] RADIOLOGY (Per Emergency Physician): Interpretation per the Radiologist below, if available at the time of this note: CTA chest angiogram w and/or wo IV contrast Final Result 1. Small, apparently isolated filling defect in right lower lobe subsegmental pulmonary artery of uncertain significance. Clinical correlation and follow-up as indicated. 2. No other, apparent large vessel or central pulmonary emboli. 3. Diffuse, multifocal opacities and possible infiltrates, with peripheral distribution and internal bronchograms versus partial cavitation, which may represent nonspecific infectious or inflammatory process and pneumonitis. Differential diagnosis also includes septic emboli and neoplastic or metastatic disease. Clinical correlation and follow-up to resolution advised. 4. Small bilateral pleural effusions. 5. Cholelithiasis, and diminutive [place] kidneys. Report Dictated on Electronically Signed By: Justo Milan MD Electronically Signed Date/Time: 02/20/2025 7:50 PM EDT ED BEDSIDE ULTRASOUND: Performed by ED Physician - none LABS: Labs Reviewed BASIC METABOLIC PANEL - Abnormal Result Value SODIUM 133 (*) POTASSIUM 3.1 (*) CHLORIDE 92 (*) CARBON DIOXIDE 29 UREA NITROGEN 29 (*) CREATININE 2.57 (*) GLUCOSE 80 CALCIUM 9.6 ANION GAP 12 eGFR 27.9 (*) CBC (HEMOGRAM) - Abnormal Auto WBC 9.4 RBC 3.03 (*) Hemoglobin 8.7 (*) Hematocrit 26.8 (*) MCV 88.4 MCH 28.7 MCHC 32.5 RDW 18.8 (*) Platelets 312 MPV 8.5 (*) PROTHROMBIN TIME - Abnormal PROTHROMBIN TIME 14.7 (*) INR 1.4 (*) APTT - Normal APTT 26.2 Narrative: NOTE: The therapeutic time for Heparin anticoagulation, based on Xa activity inhibition, is an APTT of 46-80 seconds. All other labs were within normal range or not returned as of this dictation. EMERGENCY DEPARTMENT COURSE and DIFFERENTIAL DIAGNOSIS/MDM: Vitals: Vitals: 02/20/25 1744 02/20/25 1751 02/20/252012 BP: 135/81 (!) 149/86 BP Location: Right arm Left arm Patient Position: Lying Lying Pulse: 86 83 Resp: 18 18 Temp: 36.6 C (97.9 F) TempSrc: Oral SpO2: 99% Weight: 56.7 kg (125 lb) Height: 1.778 m (5' 10) ED Course as of 02/20/252046February 20, 20251952 CTA chest angiogram w and/or wo IV contrast [MJ] ED Course User Index [MJ] Palak Thurman DO Diagnoses as of 02/20/252046 Hemoptysis The patient presented with chief complaint of hemoptysis. The differential diagnosis associated with this patient's presentation includes fistula, pulmonary hemorrhage, PE. Our workup consisted of ordering/reviewing: Labs and CTA. Patient is in agreement with this plan. Medications iopamidol (Isovue-370) 76 % injection 75 mL (75 mL IntraVENous Given 02/20/251923) REVAL: This is a chronically ill-appearing 59-year-old male who is presenting for hemoptysis that started while at dialysis today. He received a full dialysis session. His vitals are stable and he is saturating 99% on room air. He is conversational without dyspnea. While in the ED he started to develop hemoptysis again and was coughing up multiple pieces of bright red tissue. He was given a suction and placed on nasal cannula as his oxygen saturations dropped into the high 80s with the coughing. Labs show stable hemoglobin. He has a hyponatremia of 3.1 that we will hold on replacing at this time due to his ESRD. CT angio of the chest shows diffuse multiple opacities concerning for bronchograms versus partial cavitation, septic emboli or neoplasm. Given that the patient is still having some episodes of hemoptysis, he will be admitted at [facility] under the hospitalist service in case he were to decompensate and require intervention with IR or CT surgery. CRITICAL CARE TIME CONSULTS: None PROCEDURES: Unless otherwise noted below, none Procedures Patients symptoms are consistent with sepsis, severe sepsis, or septic shock (If yes use .sepsiscoremeasure): FINAL IMPRESSION 1. Hemoptysis DISPOSITION Admit 02/20/2025 08:44:17 PM PATIENT REFERRED TO: No follow-up provider specified. DISCHARGE MEDICATIONS: New Prescriptions No medications on file (Comment: Please note this report has been produced using speech recognition software and may contain errors related to that system including errors in grammar, punctuation, and spelling, as well as words and phrases that may be inappropriate. If there are any questions or concerns please feel free to contact the dictating provider for clarification.) Palak Thurman DO (electronically signed) Emergency Medicine Provider [1] Past Medical History: Diagnosis Date Acute renal failure (ARF) ([facility]) 10/19/2019 Anemia 12/30/2021 Calcification of abdominal aorta ([facility]) 10/08/202309/[address] abd Diverticulosis 10/08/2023 ESRD on hemodialysis ([facility]) ([facility]) 10/26/2019 Hemodialysis patient ([facility]) ([facility]) HTN (hypertension) 12/01/2022 Hypertension IgA nephropathy 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 10/26/2019 Missed vaccination due to patient refusal 10/08/2023 Has a number of non-scientific based beliefs which interfere with his understanding and acceptance of the medical benefit of vaccination. Nonrheumatic aortic valve stenosis 10/08/2023 Paroxysmal A-fib ([facility]) ([facility]) 08/18/2023 Tobacco abuse 10/08/2023 [2] Past Surgical History: Procedure Laterality Date APPENDECTOMY CARDIAC CATHETERIZATION N/A 10/09/2024 Performed by Bob Watson MD at [facility] Cardiac Cath/EP Lab CARDIAC CATHETERIZATION Bilateral 11/01/2024 Performed by Bob Watson MD at [facility] Cardiac Cath/EP Lab CARDIAC CATHETERIZATION N/A 11/01/2024 Performed by Bob Watson MD at [facility] Cardiac Cath/EP Lab COLONOSCOPY N/A 01/24/2025 Performed by Chadd Davis MD at [facility] ENDOSCOPY FISTULAGRAM (HISTORICAL) Left 09/15/2021 LEFT UPPER ARM HX AV FISTULA CREATION IR EMBOLIZATION 10/14/2024 IR EMBOLIZATION 10/14/2024 [facility] SPECIAL PROCEDURES IR FISTULAGRAM 08/07/2022 IR FISTULAGRAM 08/07/2022 SB IR IMAGING TONSILLECTOMY (HISTORICAL) [3] Family History Problem Relation Name Age of Onset No Known Problems Mother No Known Problems Father [4] Social History Socioeconomic History Marital status: Tobacco Use Smoking status: Former Current packs/day: 1.00 Average packs/day: 1.4 packs/day for 31.3 years (45.1 ttl pk-yrs) Types: Cigarettes Start date: 1993 Passive exposure: Past Smokeless tobacco: Never Tobacco comments: Started at 28, 3 PPD, tapered down to 1 PPD in 2020 after quitting drinking. 10/27/24 Vaping Use Vaping status: Never Used Substance and Sexual Activity Alcohol use: Not Currently Drug use: Never Sexual activity: Not Currently Social Drivers of Health Financial Resource Strain: Patient Unable To Answer (12/01/2024) Received from [facility] Overall Financial Resource Strain (CARDIA) Difficulty of Paying Living Expenses: Patient unable to answer Food Insecurity: Patient Unable To Answer (12/01/2024) Received from [facility] Hunger Vital Sign Worried About Running Out of Food in the Last Year: Patient unable to answer Ran Out of Food in the Last Year: Patient unable to answer Transportation Needs: No Transportation Needs (01/18/2025) Received from [facility] Transportation Source Has lack of transportation kept you from medical appointments or from getting medications?: No Has lack of transportation kept you from meetings, work, or from getting things needed for daily living?: No Stress: No Stress Concern Present (01/18/2025) Received from [facility] [place] of Occupational Health - Occupational Stress Questionnaire Feeling of Stress : Not at all Social Connections: Patient Unable To Answer (12/01/2024) Received from [facility] Social Connection and Isolation Panel [NHANES] Frequency of Communication with Friends and Family: Patient unable to answer Frequency of Social Gatherings with Friends and Family: Patient unable to answer Attends Bahai Services: Patient unable to answer Active Member of Clubs or Organizations: Patient unable to answer Attends Club or Organization Meetings: Patient unable to answer Marital Status: Patient unable to answer Intimate Partner Violence: Patient Unable To Answer (11/28/2024) Received from [facility] Domestic Abuse Assessment Do you feel safe in your relationships at home?: Unable to assess Physical Abuse: Unable to assess Verbal Abuse: Unable to assess Housing Stability: Patient Unable To Answer (12/01/2024) Received from [facility] Housing Stability Vital Sign Unable to Pay for Housing in the Last Year: Patient unable to answer Number of Times Moved in the Last Year: 0 Homeless in the Last Year: Patient unable to answer Palak Thurman DO 02/20/252050 Pt arrives via EMS due to coughing up blood. This began around 1200 today while he was at dialysis. Pt endorses nausea, but denies any related abdominal pain. 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 documented in this encounter [facility] 02-14-2025 History of Presen t illness Narrative Images from the original note were not included. [facility] Infectious Diseases Advanced Practice Provider Outpatient Progress Note HISTORYOF PRESENT ILLNESS 59 yo male with PMHx significant for ESRD on HD via AVF, HTN, PAD who was admitted at [facility] (10/03/24-11/28/24) where he underwent AVR (10/12/24). Post-op course cp PEA arrest/VDRF. Hypovolemic shock, and acute GIB s/p GDA embolization. Patient was extubated 10/18, re-intubated 10/19, and then extubated 10/24. On 11/01, he had PEA arrest requiring re-intubation and initiation of CRRT. He developed LLE DVTs s/p IVC filter and has ischemic toes. He had trach/PEG placement 11/14. Post-procedure cb abdominal distension and pneumoperitoneum. He had diagnostic laparotomy, EGD with G tube placement- bilious peritonitis was noted intra-op (Peritoneal Cx + E faecalis, C glabrata). He was treated with Pip-Tazo and Anidulafungin. Patient was discharged to [facility] on 11/28/24 where he was followed by our ID group for recurrent MSSA LRTI. He additionally had a sacral wound that was debrided to bone 01/02/25 (Sacral wound Cx + E faecalis, Clostridium clostridioforme). He was on a course of Amp-Sulbactam planned for 6 weeks through 02/13/[address] [facility] 01/18/25. Patient then presented to [facility] 01/19 after inadvertently self-dislodging tracheostomy. He was transferred to [facility] ICU for airway management and to determine if replacement tracheostomy was needed; decision was made to leave tracheostomy out. He was transferred to [facility] same day. 01/20 GI and critical care were consulted dt rectal bleeding. He was transferred back to ICU and had an EGD that showed non-bleeding duodenal ulcer. At that time sacral wound was also noted to be bleeding. Wound vac was applied. He continued on course of Amp-Sulbactam as planned through 02/13/25 and had tunneled line placed. Patient was discharged to [facility] 02/01/25. Patient presents today for EOT follow up. He had tunneled line removed this morning with IR. Patient reports doing okay overall. He notes sacral wound area is sore, stating his bed is hard exacerbating the discomfort. He reports tolerating antibiotics well. Denies any new fever, chills, CP, cough, SOB, N/V, abdominal pain, and any new bowel or urinary changes. Denies any new redness or drainage to L toes; notes some of the black tissue is flaking off. No other new exacerbating or alleviating factors. Review of Systems Constitutional: Negative for chills, fatigue and fever. HENT: Negative for congestion, ear pain, postnasal drip, rhinorrhea, sinus pressure, sinus pain and sore throat. Eyes: Negative for pain, discharge and itching. Respiratory: Negative for cough, chest tightness and shortness of breath. Cardiovascular: Negative for chest pain, palpitations and leg swelling. Gastrointestinal: Negative for abdominal distention, abdominal pain, constipation, diarrhea, nausea and vomiting. Genitourinary: Negative for dysuria, flank pain, frequency and urgency. Musculoskeletal: Negative for arthralgias and myalgias. Skin: Positive for color change and wound. Negative for rash. Neurological: Positive for weakness. Negative for dizziness, light-headedness and headaches. Social History Socioeconomic History Marital status: Spouse name: Not on file Number of children: Not on file Years of education: Not on file Highest education level: Not on file Occupational History Not on file Tobacco Use Smoking status: Every Day Current packs/day: 1.00 Average packs/day: 1.4 packs/day for 31.2 years (45.1 ttl pk-yrs) Types: Cigarettes Start date: 1993 Passive exposure: Past Smokeless tobacco: Never Tobacco comments: Started at 28, 3 PPD, tapered down to 1 PPD in 2020 after quitting drinking. 10/27/24 Vaping Use Vaping status: Never Used Substance and Sexual Activity Alcohol use: Not Currently Drug use: Never Sexual activity: Not Currently Other Topics Concern Not on file Social History Narrative Not on file Social Drivers of Health Financial Resource Strain: Patient Unable To Answer (12/01/2024) Received from [facility] Overall Financial Resource Strain (CARDIA) Difficulty of Paying Living Expenses: Patient unable to answer Food Insecurity: Patient Unable To Answer (12/01/2024) Received from [facility] Hunger Vital Sign Worried About Running Out of Food in the Last Year: Patient unable to answer Ran Out of Food in the Last Year: Patient unable to answer Transportation Needs: No Transportation Needs (01/18/2025) Received from [facility] Transportation Source Has lack of transportation kept you from medical appointments or from getting medications?: No Has lack of transportation kept you from meetings, work, or from getting things needed for daily living?: No Physical Activity: Not on file Stress: No Stress Concern Present (01/18/2025) Received from [facility] [place] of Occupational Health - Occupational Stress Questionnaire Feeling of Stress : Not at all Social Connections: Patient Unable To Answer (12/01/2024) Received from [facility] Social Connection and Isolation Panel [NHANES] Frequency of Communication with Friends and Family: Patient unable to answer Frequency of Social Gatherings with Friends and Family: Patient unable to answer Attends Bahai Services: Patient unable to answer Active Member of Clubs or Organizations: Patient unable to answer Attends Club or Organization Meetings: Patient unable to answer Marital Status: Patient unable to answer Intimate Partner Violence: Patient Unable To Answer (11/28/2024) Received from [facility] Domestic Abuse Assessment Do you feel safe in your relationships at home?: Unable to assess Physical Abuse: Unable to assess [facility] Domestic Abuse - Type of Abuse: Not on file [facility] Domestic Abuse - Time Frame: Not on file [facility] Domestic Abuse - Signs and Symptoms: Not on file Verbal Abuse: Unable to assess [facility] Domestic Abuse - Reported To: Not on file Housing Stability: Patient Unable To Answer (12/01/2024) Received from [facility] Housing Stability Vital Sign Unable to Pay for Housing in the Last Year: Patient unable to answer Number of Times Moved in the Last Year: 0 Homeless in the Last Year: Patient unable to answer Medical History[1] Family History[2] Vitals: 02/14/25 1030 BP: 138/72 BP Location: Right arm Patient Position: Sitting BP Cuff Size: Adult Pulse: 89 Temp: 36 C (96.8 F) TempSrc: Temporal SpO2: 98% Weight: 59 kg (130 lb) Height: 1.778 m (5' 10) Wt Readings from Last 3 Encounters: 02/14/25 59 kg (130 lb) 02/01/25 46.1 kg (101 lb 10.1 oz) 11/28/24 58.9 kg (129 lb 13.6 oz) Physical Exam Vitals and nursing note reviewed. Constitutional: General: He is not in acute distress. Appearance: Normal appearance. He is normal weight. He is ill-appearing. Comments: NAD sitting in wheelchair. Cooperative, conversant. Appears thin HENT: Head: Normocephalic and atraumatic. Right Ear: External ear normal. Left Ear: External ear normal. Nose: Nose normal. Mouth/Throat: Mouth: Mucous membranes are moist. Pharynx: Oropharynx is clear. Comments: +dentures Eyes: Extraocular Movements: Extraocular movements intact. Conjunctiva/sclera: Conjunctivae normal. Pupils: Pupils are equal, round, and reactive to light. Neck: Comments: Healed tracheostomy scar Cardiovascular: Rate and Rhythm: Normal rate and regular rhythm. Pulses: Normal pulses. Heart sounds: Normal heart sounds. Pulmonary: Effort: Pulmonary effort is normal. Breath sounds: Normal breath sounds. No wheezing, rhonchi or rales. Comments: Breathing unlabored on room air Abdominal: General: Abdomen is flat. Bowel sounds are normal. There is no distension. Palpations: Abdomen is soft. Tenderness: There is no abdominal tenderness. There is no guarding. Musculoskeletal: Right lower leg: No edema. Left lower leg: No edema. Skin: General: Skin is warm and dry. Comments: LUE AVF Sacral wound vac in place- serosanguinous drainage in cannister. No surrounding erythema L toes 1-4 with dry gangrene. No notable erythema or purulence Tunneled line removal site dressed Neurological: General: No focal deficit present. Mental Status: He is alert and oriented to person, place, and time. Psychiatric: Mood and Affect: Mood normal. Behavior: Behavior normal. No results displayed because visit has over 200 results. Other Labs: Micro: 01/22 C auris PCR: neg 01/22 Acinetobacter baumannii PCR: neg Previous ([facility]) 01/02- sacral wound cx- E faecalis (Amp-S), skin ila, Clostridium clostrioforme 01/01- blood cx- 2/2 NG 12/30- blood cx- 2/2 NGTD 12/30- sputum cx- MSSA, resp ila 12/25- blood cx- 2/2 negative 12/14- sputum cx- MSSA, resp ila 12/14- MRSA pcr- MSSA 12/11- sputum cx- MSSA, resp ila Previous ([facility]) 11/28- L pleural fluid- negative 11/16- abd fluid eswab- ASE faecalis 11/16- peritoneal cx- C glabrata 11/15- RPP- negative 11/15- sputum cx- resp ila 11/14- BAL pneumonia PCR- negative 11/14- BAL cx- resp ila 11/12- C diff PCR- negative 11/12- GI PCR- negative 11/02- MRSA PCR- MSSA 11/02- RPP- negative 11/01- pneumonia PCR- MSSA, RSV 11/01- BAL cx- MSSA, resp ila 11/01- blood cx- 2/2 negative 10/25- H pylori ag- negative 10/19- BAL cx- resp ila 10/19- BAL pneumonia PCR- coronavirus, RSV 10/16- BAL cx- resp ila 10/11- GI PCR- negative 10/03- blood cx- 2/2 negative 10/03- 4plex- RSV Lines: AVF Tunneled line- removed 02/14 Radiography/Echo/Other: 01/19 CXR 1. Lingular infiltrate. 2. Prominence of the central pulmonary vasculature consistent with mild congestive heart failure/fluid overload. 3. Overall significant improvement in the aeration of the lungs when compared to the previous study. Antimicrobials, Start/End Dates: Anidulafungin: 11/27-11/28 Micafungin: 11/28- 12/10 Linezolid: 12/30-12/31 Pip/tazo: 12/30-01/01 Vancomycin: 12/31- 01/03 Meropenem: 01/01-01/04 Amp-Sulbactam: 01/06- 02/13 Impression: Sacral wound infection w osteomyelitis S/p bedside debridement w/ exposed bone (01/02) sacral wound cx: ASEC, Clostridium Tracheostomy dislodgement BRBPR S/p EGD 01/21- with non-bleeding duodenal ulcer. S/p colonoscopy 01/24- sigmoid diverticulosis & internal hemorrhoids; no active bleeding. Leukocytosis- resolved Hx MSSA LRTIs Hx Acute hypoxic respiratory failure s/p trach Hx C glabrata, ASEC peritonitis s/p treatment (10/2024) Pneumoperitoneum s/p ex-lap, EGD, & abhishek gastrostomy tube placement (11/16/24) Hx GIB s/p GDA embolization (10/14/24) PEA arrest x2 (10/14/24, 11/01/24) Severe aortic stenosis s/p AVR (23mm [facility] [place] mechanical- 10/12/24) LLE DVT's c/b ishemic L foot s/p IVC filter ESRD on HD via LUE AVF MWF Afib on amiodarone Plan: Patient completed 6 week course of Amp-Sulbactam on 02/13/25 for sacral osteomyelitis. Tunneled line has since been removed. Continue to monitor off antibiotics at this time. Continue wound care. Opportunity given for questions and all questions answered to the patient's satisfaction. Total time 30 minutes on this day of visit includes record and documentation review before and after visit including documentation and time not explicitly included on EMR time stamp for accounting for open encounter. Mikala Day MMS, [facility] [place]ious Disease [1] Past Medical History: Diagnosis Date Acute renal failure (ARF) ([facility]) 10/19/2019 Anemia 12/30/2021 Calcification of abdominal aorta ([facility]) 10/08/202309/[address] abd Diverticulosis 10/08/2023 ESRD on hemodialysis ([facility] [place]) ([facility]) 10/26/2019 Hemodialysis patient ([facility] [place]) ([facility]) HTN (hypertension) 12/01/2022 Hypertension IgA nephropathy 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 10/26/2019 Missed vaccination due to patient refusal 10/08/2023 Has a number of non-scientific based beliefs which interfere with his understanding and acceptance of the medical benefit of vaccination. Nonrheumatic aortic valve stenosis 10/08/2023 Paroxysmal A-fib ([facility]) ([facility]) 08/18/2023 Tobacco abuse 10/08/2023 [2] Family History Problem Relation Name Age of Onset No Known Problems Mother No Known Problems Father documented in this encounter [facility] 02-02-2025 History of Presen t illness Narrative Images from the original note were not included. Pt discharged to [facility] on 02/01/25. Updated tracker with hospital doses. Warfarin dosing instructions: 0.5 mg per day. New interacting meds: N/a Next SAILAJA appt: post [facility] documented in this encounter [facility] 02-02-2025 History of Presen t illness Narrative Images from the original note were not included. Pt discharged to [facility] on 02/01/25. Updated tracker with hospital doses. Warfarin dosing instructions: 0.5 mg per day. New interacting meds: N/a Next SAILAJA appt: post SNF Patient is still at [facility] ([phone]). I left a message for ELIA Anderson, regarding discharge plans. documented in this encounter [facility] 02-02-2025 History of Presen t illness Narrative Images from the original note were not included. Pt discharged to [facility] on 02/01/25. Updated tracker with hospital doses. Warfarin dosing instructions: 0.5 mg per day. New interacting meds: N/a Next SAILAJA appt: post SNF Patient is still at [facility] ([phone]). I left a message for ELIA Anderson, regarding discharge plans. Patient is still in rehab. I spoke with ELIA Anderson, and she stated that there are no discharge plans in the near future. Patient will probably end up going into assisted living. He currently has a bad wound, doing dialysis and therapy. I will check back in a couple weeks. Patient was readmitted on 02/20 and discharged back to [facility] on 03/05. documented in this encounter [facility] 02-01-2025 Nurse Note Transport here to take patient to [facility]. Wound Vac tubing clamped and disconnected from wound vac. Facility will determine if tubing is compatible with their wound vacs. Wound Vac Dressing leaking with foam falling out. Dressing removed and W-D drsg applied. Patient Name: Jnu Snyder Patient : 1965 Acct: [id number] Date of Admission: 01/19/2025 Room/Bed: [facility] A Code Status: Full Code Allergies: Allergies Allergen Reactions Lisinopril Swelling and Angioedema Diagnosis: Patient Active Problem List Diagnosis Anemia Paroxysmal A-fib ([facility]) (HCC) HTN (hypertension) ESRD on hemodialysis ([facility]) ([facility]) 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 Diverticulosis Nonrheumatic aortic valve stenosis Calcification of abdominal aorta ([facility]) Missed vaccination due to patient refusal Tobacco abuse Alcohol use disorder in remission Atrial flutter, unspecified type ([facility]) RSV (acute bronchiolitis due to respiratory syncytial virus) Aortic stenosis Upper GI bleed S/P AVR Acute hypoxic respiratory failure ([facility]) Acute encephalopathy Pneumoperitoneum Gastric ulceration Severe malnutrition (CMS/HCC) ([facility]) Pleural effusion Peritonitis due to fungus ([facility]) History of abdominal surgery Leg DVT (deep venous thromboembolism), acute, left ([facility]) 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, 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 of skin ([facility]) 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[facility]) Leukocytosis Decubitus ulcer of sacral region, unstageable ([facility]) Pneumonia of both lungs due to methicillin susceptible Staphylococcus aureus (MSSA) ([facility]) Sacral osteomyelitis ([facility]) ([facility] Acute respiratory failure with hypoxia ([facility]) [J96.01] Tracheostomy care ([facility]) [Z43.0] 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[facility]) rn long term care (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 Complication of tracheostomy ([facility]) ([facility]) BRBPR (bright red blood per rectum) Treatment: Hemodilaysis 2:1 Priority: Routine Location: Acute Room Diabetic: No NPO: No Isolation Precautions: None Consent for Treatment Verified: Yes Blood Consent Verified: Not Applicable ICEBOAT: Identify, Consent, Equipment, HepB Status, Orders Complete, Access Verified, Timeliness (o2 and suction functional @ bedside) Second Clinician Verifying: Hector Hutchison RN Time out performed prior to access at 0806. Report Received from Primary RN at 0714. Primary RN (First Initial, Last Name, Title): Taryn Ley RN Incapacitated Nurse Education Completed: Gemma Hutchison RN HBsAg ONLY: Date Drawn: January 26, 2025 Results: Negative HBsAb: Date Drawn: January 26, 2025 Results: Susceptible <10 Order Dialyzer: Nipro Na+ Modeling: Not Applicable Dialysate Temperature (C): 36 Blood Flow Rate (BFR): 400 Dialysate Flow Rate (DFR): 600 Access to be Utilized Access: AVF Location: Upper Extremity Side: Left Needle gauge: 15 + Bruit/Thrill: Yes First Use X-ray Verified: Not Applicable OK to use line order: Not Applicable Site Assessment: Signs and Symptoms of Infection/Inflammation: None If yes: Not Applicable Dressing: N/A Site Prep: Medical Aseptic Technique Dressing Changed this Treatment: N/A If yes, by whom: N/A Date of Last Dressing Change: N/A N/A [address]?: N/A Red Alcohol Caps in place?: N/A Gauze Dressing?: N/A Non-Dialysis Use?: No Comment: Flows: Good If access problem, who was notified: Pre and Post-Assessment Patient Vitals for the past 8 hrs: Level of Consciousness Heart Rhythm Respiratory Pattern O2 Device Bilateral Breath Sounds Skin Color Skin Condition/Temp Abdomen Inspection Bowel Sounds (All Quadrants) 01/31/25 0400 -- -- -- -- Diminished Ecchymosis;Starke;Mark Warm;Dry Flat;Gastrostomy tube Active 01/31/25 0801 Alert (0) Regular Tachypnea None (Room air) Diminished -- Warm;Dry Flat;Gastrostomy tube Active 01/31/25 1111 Alert (0) Regular -- -- -- -- -- -- -- Labs Lab Results Component Value Date/Time WBC 9.3 01/31/2025 0010 HGB 8.8 (L) 01/31/2025 0010 HGB 9.4 11/11/2024 0230 HCT 27.9 (L) 01/31/2025 0010 PLT 278 01/31/2025 0010 NA 138 01/31/2025 0010 K 4.3 01/31/2025 0010 CL 99 01/31/2025 0010 CO2 27 01/31/2025 0010 BUN 15 01/31/2025 0010 CREATININE 3.64 (H) 01/31/2025 001 CREATININE 9.99 (H) 10/27/2019 0545 CALCIUM 10.0 01/31/2025 0010 PHOS 4.6 01/31/2025 0010 IV Drips and Rate/Dose sodium chloride, 20 mL/hr, Last Rate: 20 mL/hr (01/30/25 1838) Safety - Before each treatment: Dialysis Machine No.: [id number] RO Machine Number: [id number] Dialyzer Lot No.: [id number] Tubing Lot Number: [id number] All Connections Secure: Yes Venous Parameters Set: Yes Arterial Parameters Set: Yes NS Bag: Yes Saline Line Double Clamped: Yes Dialyzer: Nipro Prime Volume (mL): 200 mL RO Machine Number: [id number] RO Machine Log Sheet Completed: Yes Machine Alarm Self Test: Completed, Passed (722) (01/31/25 0743) Air Foam Detector: Tested, Proper Function, pH Reading Extracorporeal Circuit Tested for Integrity: Yes Machine Conductivity: 13.7 Manual Conductivity: 13.7 Manual Ph: 7 Bleach Test (Neg): Yes Bath Temperature: 36 C (96.8 F) Conductivity Meter Serial #: [id number] Machine Functioning Alarm Free? Yes Dialysis Bath: K+ (Potassium): 2 Ca+ (Calcium): 2.5 Na+ (Sodium): 137 HCO3 (Bicarb): 35 Bicarbonate Concentrate Lot No.: [id number] Acid Concentrate Lot No.: [id number] Chlorine Testing - Before each treatment and every 4 hours: Time On: 0811 Time Off: 1111 Treatment Goal: 2L Weight Height: 177.8 cm (5' 10) (01/30/25 1002) Weight: 53.2 kg (117 lb 4.6 oz) (01/31/25 06) BMI (Calculated): 16.83 (01/31/25 06) 1st check: less than 0.1 ppm at: 0545 2nd check: less than 0.1 ppm at: 0845 3rd check: Not Applicable (if greater than 0.1 ppm, then check every 30 minutes from secondary) Access Flows and Pressures Patient Vitals for the past 8 hrs: Blood Flow Rate (mL/min) Ultrafiltration Rate (ml/hr) Arterial Pressure (mmHg) Venous Pressure (mmHg) TMP DFR Access Visible Intra-Hemodialysis Comments 01/31/25 0801 -- -- -- -- -- -- Yes pt aware of call light within reach and educated on use of call light 01/31/25 0811 200 mL/min 830 ml/hr -20 mmHg 50 mmHg 40 600 Yes tx iniated lines secured pt stable 01/31/25 0812 400 mL/min 830 ml/hr -110 mmHg 160 mmHg 60 600 Yes bfr increased 01/31/25 0815 400 mL/min 830 ml/hr -120 mmHg 180 mmHg 60 600 Yes pt alert resting rmv 92 01/31/25 0830 400 mL/min 830 ml/hr -120 mmHg 200 mmHg 60 600 Yes pt stable 265 uf removed 01/31/25 0845 400 mL/min 830 ml/hr -130 mmHg 200 mmHg 50 600 Yes pt resting rmv 486 01/31/25 0900 400 mL/min 830 ml/hr -130 mmHg 210 mmHg 50 600 Yes pt alert stable rmv 694 01/31/25 0915 400 mL/min 830 ml/hr -130 mmHg 210 mmHg 50 600 Yes pt resting rmv 877 01/31/25 0930 400 mL/min 840 ml/hr -130 mmHg 210 mmHg 50 600 Yes pt stable rmv 1109 01/31/25 0945 400 mL/min 840 ml/hr -130 mmHg 220 mmHg 50 600 Yes pt resting needles intact rmv 1311 01/31/25 1000 400 mL/min 840 ml/hr -140 mmHg 220 mmHg 50 600 Yes pt stable rmv 1532 01/31/25 1015 400 mL/min 840 ml/hr -140 mmHg 220 mmHg 50 600 Yes pt sleeping rmv 1716 01/31/25 1030 400 mL/min 840 ml/hr -140 mmHg 210 mmHg 50 600 Yes pt sleeping rmv 1941 01/31/25 1045 400 mL/min 840 ml/hr -150 mmHg 200 mmHg 60 600 Yes pt stable rmv 2189 01/31/25 1100 400 mL/min 840 ml/hr -140 mmHg 220 mmHg 60 600 Yes pt resting rmv 2364 01/31/25 1111 -- -- -- -- -- -- Yes tx complete pt stable 2500 uf removed Vital Signs Patient Vitals for the past 24 hrs: BP Temp Temp src Pulse Resp SpO2 Weight 01/31/25 1121 130/70 -- -- 57 -- -- -- 01/31/25 1111 127/71 36.2 C (97.2 F) -- 56 16 100 % -- 01/31/25 1100 128/68 -- -- 62 -- -- -- 01/31/25 1045 100/54 -- -- 65 -- -- -- 01/31/25 1030 116/61 -- -- 66 -- -- -- 01/31/25 1015 134/70 -- -- 64 -- -- -- 01/31/25 1000 141/81 -- -- 75 -- -- -- 01/31/25 0945 137/76 -- -- 67 -- -- -- 01/31/25 0930 122/71 -- -- 57 -- -- -- 01/31/25 0915 136/76 -- -- 70 -- -- -- 01/31/25 0900 136/76 -- -- 73 -- -- -- 01/31/25 0845 134/79 -- -- 76 -- -- -- 01/31/25 0830 129/70 -- -- 69 -- -- -- 01/31/25 0815 117/64 -- -- 64 -- -- -- 01/31/25 0812 121/70 -- -- 70 -- -- -- 01/31/25 0811 115/68 -- -- 72 -- -- -- 01/31/25 0801 120/68 36.3 C (97.3 F) -- 79 20 100 % -- 01/31/25 0600 -- -- -- -- -- -- 53.2 kg (117 lb 4.6 oz) 01/31/25 0400 -- -- -- 78 -- -- -- 01/31/25 0321 (!) 133/104 -- -- 77 16 95 % -- 01/31/25 0000 -- -- -- 75 -- -- -- 01/30/25 2220 134/75 36.6 C (97.9 F) Temporal 71 16 92 % -- 01/30/25 1954 129/80 36.2 C (97.1 F) Temporal 80 16 99 % -- 01/30/25 1542 (!) 109/38 36.1 C (97 F) Temporal 74 (!) 11 92 % -- 01/30/25 1420 -- -- -- 73 18 -- -- 01/30/25 1415 -- -- -- 73 16 -- -- 01/30/25 1410 -- -- -- 73 (!) 28 -- -- 01/30/25 1405 -- -- -- 71 12 -- -- 01/30/25 1400 -- -- -- 76 25 -- -- Post-Dialysis Arterial Catheter Locking Solution: Not Applicable Venous Catheter Locking Solution: Not Applicable Post-Treatment Procedures: Blood returned, Access bleeding time < 10 minutes Machine Disinfection Process: Exterior Machine Disinfection Rinseback Volume (mL): 300 mL Total Liters Processed (L/min): 66.3 L/min Dialyzer Clearance: Lightly streaked Hemodialysis Intake (ml): 500 ml Hemodialysis Output (ml): 2500 ml NET Removed (ml): 2000 ml Tolerated Treatment: Good Interventions Taken: Ultrafiltration stopped, Ultrafiltration goal decreased Patient Response to Treatment: stable Physician Notified: No Patient Disposition: Return to room Charge: $ IP Hemodialysis Charge: Hemodialysis Provider Notification Provider Notification Reason for Communication: Medication concern Provider Name: santo Provider Role: Attending physician Method of Communication: Secure chat Response: Other (Comment) (med [employer]) Notification Date: 01/30/25 Notification Time: 2037 Reason for Communication: Medication concern Provider Role: Attending physician Method of Communication: Secure chat Response: Other (Comment) (med [employer]) Notification Time: 2037 Handoff complete and report given to Primary RN at 1115. Primary RN (First Initial, Last Name, Title): Taryn Ley RN Education Person Educated: Patient Knowledge Base: Substantial Barriers to Learning?: None Preferred method of Learning: Oral Topic(s): Call Light Education, Access Care, Signs and Symptoms of Infection, and Fluid Management Teaching Tools: Explanation Response to Education: Verbalized Understanding Patient arrived from [facility], Dr. Borrero in to speak with the patient regarding tunneled central line, consent obtained. Patient was placed supine on exam table prepped and draped in sterile fashion. Telemetry monitors placed. Patient tolerated procedure well. Transfer back to room. I was able to get him into chair yesterday. Today he refuses but states maybe later. He is tired from dialysis Patient bathed, refusing gown. He has some bloody drainage on pad and Dr Lira in at bedside and aware. Looks like it may be from wound but unsure. Per Dr Lira request I called the coumadin clinic for them to advise on if patient should take tonight dose with pending tunneled cath placement Patient returned from dialysis. He is sleeping but awakens for assessment. Lunch at bedside and he wants it left for now. Call light in reach Patient Name: Jun Snyder Patient : 1965 Acct: [id number] Date of Admission: 01/19/2025 [facility] A Code Status: Full Code Allergies: Allergies Allergen Reactions Lisinopril Swelling and Angioedema Diagnosis: Patient Active Problem List Diagnosis Anemia Paroxysmal A-fib ([facility]) (HCC) HTN (hypertension) ESRD on hemodialysis ([facility]) ([facility]) 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 Diverticulosis Nonrheumatic aortic valve stenosis Calcification of abdominal aorta (HCC) Missed vaccination due to patient refusal Tobacco abuse Alcohol use disorder in remission Atrial flutter, unspecified type (HCC) RSV (acute bronchiolitis due to respiratory syncytial virus) Aortic stenosis Upper GI bleed S/P AVR Acute hypoxic respiratory failure (HCC) Acute encephalopathy Pneumoperitoneum Gastric ulceration Severe malnutrition (CMS/HCC) (HCC) Pleural effusion Peritonitis due to fungus (HCC) History of abdominal surgery Leg DVT (deep venous thromboembolism), acute, left (HCC) 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, 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) 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HCC) Leukocytosis Decubitus ulcer of sacral region, unstageable (HCC) Pneumonia of both lungs due to methicillin susceptible Staphylococcus aureus (MSSA) (HCC) Sacral osteomyelitis (CMS/HCC) (HCC) Acute respiratory failure with hypoxia (HCC) [J96.01] Tracheostomy care ([facility]) [Z43.0] 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HCC) rn long term care (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 Complication of tracheostomy (CMS/HCC) (HCC) BRBPR (bright red blood per rectum) Treatment: Hemodilaysis 2:1 Priority: Routine Location: Acute Room Diabetic: Yes NPO: No Isolation Precautions: Dialysis Consent for Treatment Verified: Yes Blood Consent Verified: Not Applicable ICEBOAT: Identify, Consent, Equipment, HepB Status, Orders Complete, Access Verified, Timeliness (O2 and wall suciton bedside) Second Clinician Verifying: Prince Sawyer Time out performed prior to access at 0842. Report Received from Primary RN at 0730. Primary RN (First Initial, Last Name, Title): Swapnil Eckert RN Incapacitated Nurse Education Completed: NAN HBsAg ONLY: Date Drawn: January 26, 2025 Results: Negative HBsAb: Date Drawn: January 26, 2025 Results: Susceptible <10 Order Dialyzer: Nipro Na+ Modeling: Not Applicable Dialysate Temperature (C): 36 Blood Flow Rate (BFR): 400 Dialysate Flow Rate (DFR): 600 Access to be Utilized Access: AVF Location: Upper Extremity Side: Left Needle gauge: 15 + Bruit/Thrill: Yes First Use X-ray Verified: Not Applicable OK to use line order: Not Applicable Site Assessment: Signs and Symptoms of Infection/Inflammation: None If yes: Not Applicable Dressing: na Site Prep: Medical Aseptic Technique Dressing Changed this Treatment: na If yes, by whom: na Date of Last Dressing Change: na na [address]?: na Red Alcohol Caps in place?: na Gauze Dressing?: na Non-Dialysis Use?: No Comment: Flows: Good If access problem, who was notified: Pre and Post-Assessment Patient Vitals for the past 8 hrs: Level of Consciousness Oriented X Heart Rhythm O2 Device Bilateral Breath Sounds Skin Color Skin Condition/Temp Abdomen Inspection Bowel Sounds (All Quadrants) 01/29/25 0800 -- -- -- -- Clear Starke;Mark Warm;Dry Flat;Soft;Gastrostomy tube Active 01/29/25 0839 Alert (0) 3 Regular None (Room air) Clear Starke Warm;Dry;No swelling Soft Active 01/29/25 1210 Alert (0) 3 Regular None (Room air) Clear Starke -- -- -- Labs Lab Results Component Value Date/Time WBC 9.4 01/29/2025 0337 HGB 8.6 (L) 01/29/2025 033 HGB 9.4 11/11/2024 0230 HCT 27.3 (L) 01/29/2025 033 PLT 271 01/29/2025 033 NA 134 (L) 01/29/2025 033 K 3.7 01/29/2025 033 CL 94 (L) 01/29/2025 033 CO2 23 01/29/2025336 BUN 21 01/29/2025336 CREATININE 4.17 (H) 01/29/2025 033 CREATININE 9.99 (H) 10/27/2019 0545 CALCIUM 9.8 01/29/2025336 PHOS 4.9 (H) 01/29/2025 033 IV Drips and Rate/Dose sodium chloride, 20 mL/hr, Last Rate: 20 mL/hr (01/25/252003) Safety - Before each treatment: Dialysis Machine No.: [id number] RO Machine Number: [id number] Dialyzer Lot No.: [id number] Tubing Lot Number: [id number] All Connections Secure: Yes Venous Parameters Set: Yes Arterial Parameters Set: Yes NS Bag: Yes Saline Line Double Clamped: Yes Dialyzer: Nipro Prime Volume (mL): 200 mL RO Machine Number: [id number] RO Machine Log Sheet Completed: Yes Machine Alarm Self Test: Completed, Passed (01/29/25729) Air Foam Detector: Tested, Proper Function, pH Reading Extracorporeal Circuit Tested for Integrity: Yes Machine Conductivity: 13.8 Manual Conductivity: 13.8 Manual Ph: 7 Bleach Test (Neg): Yes Bath Temperature: 36 C (96.8 F) Conductivity Meter Serial #: [id number] Machine Functioning Alarm Free? Yes Dialysis Bath: K+ (Potassium): 3 Ca+ (Calcium): 2.5 Na+ (Sodium): 137 HCO3 (Bicarb): 35 Bicarbonate Concentrate Lot No.: [id number] Acid Concentrate Lot No.: [id number] Chlorine Testing - Before each treatment and every 4 hours: Time On: 0847 Time Off: 1147 Treatment Goal: 2L Weight Height: 177.8 cm (5' 10) (01/24/25 1321) Weight: 53.1 kg (117 lb 1 oz) (01/29/25650) BMI (Calculated): 16.8 (01/29/25650) 1st check: less than 0.1 ppm at: 0845 2nd check: less than 0.1 ppm at: 1145 3rd check: Not Applicable (if greater than 0.1 ppm, then check every 30 minutes from secondary) Access Flows and Pressures Patient Vitals for the past 8 hrs: Blood Flow Rate (mL/min) Ultrafiltration Rate (ml/hr) Arterial Pressure (mmHg) Venous Pressure (mmHg) TMP DFR Access Visible Intra-Hemodialysis Comments 01/29/25 0847 200 mL/min 830 ml/hr 0 mmHg 70 mmHg 90 600 Yes Tx initiated call light within reach 01/29/25 0849 400 mL/min 830 ml/hr -110 mmHg 180 mmHg 100 600 Yes BFr increased 01/29/25 0904 400 mL/min 830 ml/hr -110 mmHg 190 mmHg 100 600 Yes Pt stable rmvd 244. Alert watching tv. Call light in reach. 01/29/25 0906 400 mL/min 830 ml/hr -110 mmHg 190 mmHg 100 600 Yes Pt stabloe rmvd 428. Sleeping. 01/29/25 0915 400 mL/min 830 ml/hr -110 mmHg -100 mmHg 210 600 Yes Pt stable rmvd 521. Lines secure.. 01/29/25 0930 400 mL/min 830 ml/hr -100 mmHg 200 mmHg 210 600 Yes Pt sleeping, lines secure. Rmvd 676. Call light in reach 01/29/25 0948 400 mL/min 830 ml/hr -100 mmHg 210 mmHg 100 600 Yes Pt stable resting. Rmvd 839. Lines secure. Rmvd 846. 01/29/25 1000 400 mL/min 830 ml/hr -110 mmHg 210 mmHg 100 600 Yes Pt stable [id number]. Pt stable , sleeping 01/29/25 1018 400 mL/min 830 ml/hr -110 mmHg 210 mmHg 100 600 Yes Pt stable rmvd 1251. Lines secure. Bicarb changed conductivity 13.9. Call light in reach. 01/29/25 1030 400 mL/min 830 ml/hr -120 mmHg 210 mmHg 100 600 Yes pt stable rmvd 1471. sleeping. Lines secure. 01/29/25 1045 400 mL/min 830 ml/hr -130 mmHg 210 mmHg 100 600 Yes Pt sleeping. Call light in reach. Liners secure 01/29/25 1100 400 mL/min 830 ml/hr -130 mmHg 190 mmHg 100 600 Yes Pt sleeping rmvd 1880. Lines secure. 01/29/25 1116 400 mL/min 0 ml/hr -130 mmHg 190 mmHg 90 600 Yes Pt sleeping, uf off. Bp trending down . Call light in reach. 01/29/25 1131 400 mL/min 0 ml/hr -130 mmHg 190 mmHg 80 600 Yes Pt sleeping. Bp trending up. UF remains off. Lines secure. 01/29/25 1147 -- -- -- -- -- -- -- Tx completed rm 1999 Vital Signs Patient Vitals for the past 24 hrs: BP Temp Temp src Pulse Resp SpO2 Weight 01/29/25 1200 126/73 36.4 C (97.5 F) -- 74 -- -- -- 01/29/25 1147 124/74 -- -- 73 -- -- -- 01/29/25 1131 91/53 -- -- 67 -- -- -- 01/29/25 1116 (!) 89/51 -- -- 67 -- -- -- 01/29/25 1100 97/58 -- -- 71 -- -- -- 01/29/25 1045 103/65 -- -- 67 -- -- -- 01/29/25 1030 137/74 -- -- 67 -- -- -- 01/29/25 1018 143/82 -- -- 79 -- -- -- 01/29/25 1000 131/79 -- -- 68 -- -- -- 01/29/25 0948 139/90 -- -- 77 -- -- -- 01/29/25 0930 135/79 -- -- 77 -- -- -- 01/29/25 0915 126/76 -- -- 70 -- -- -- 01/29/25 0906 126/74 -- -- 71 -- -- -- 01/29/25 0904 126/76 -- -- 60 -- -- -- 01/29/25 0849 125/74 -- -- 75 -- -- -- 01/29/25 0847 130/67 -- -- 77 -- -- -- 01/29/25 0839 122/73 36.9 C (98.4 F) -- 81 18 98 % -- 01/29/25 0831 127/71 36.4 C (97.6 F) Temporal 80 17 100 % -- 01/29/25 0651 -- -- -- -- -- -- 53.1 kg (117 lb 1 oz) 01/29/25 0100 132/63 36.4 C (97.5 F) Temporal -- -- 93 % -- 01/28/25 2030 141/75 36 C (96.8 F) Temporal -- -- 94 % -- 01/28/25 1512 108/73 36.3 C (97.3 F) Temporal 79 18 99 % -- Post-Dialysis Arterial Catheter Locking Solution: Not Applicable Venous Catheter Locking Solution: Not Applicable Post-Treatment Procedures: Blood returned, Access bleeding time < 10 minutes Machine Disinfection Process: Exterior Machine Disinfection Rinseback Volume (mL): 300 mL Total Liters Processed (L/min): 68.6 L/min Dialyzer Clearance: Clear Hemodialysis Intake (ml): 500 ml Hemodialysis Output (ml): 2000 ml NET Removed (ml): 1500 ml Tolerated Treatment: Fair Interventions Taken: Ultrafiltration stopped, Ultrafiltration goal decreased Patient Response to Treatment: stable Physician Notified: No Patient Disposition: Remain in ICU/ED Charge: $ IP Hemodialysis Charge: Hemodialysis Provider Notification Provider Notification Reason for Communication: Critical lab value (aPTT was >139, gtt paused and will be restarted at 9 un/kg/hr,) Provider Name: Saskia Provider Role: Resident Method of Communication: Secure chat Response: Other (Comment) (aware) Notification Date: 01/25/25 Notification Time: 2037 Reason for Communication: Critical lab value (aPTT was >139, gtt paused and will be restarted at 9 un/kg/hr,) Provider Role: Resident Method of Communication: Secure chat Response: Other (Comment) (aware) Notification Time: 2037 Handoff complete and report given to Primary RN at 1200. Primary RN (First Initial, Last Name, Title): Swapnil Eckert RN Education Person Educated: Patient Knowledge Base: Minimal Barriers to Learning?: None Preferred method of Learning: Oral Topic(s): call light, Access Care, Signs and Symptoms of Infection, and Fluid Management Teaching Tools: Demonstration Response to Education: Verbalized Understanding Patient appears anxious today. He is refusing wound vac change. He is picking at everything. Hard to do treatment to him because he comes up with several things to do before any care for him. The things are no appropriate or make sense. Dr Lira messaged about INR so heparin gtt stopped . She also said we can dc tele which may help because he was always pulling at all wires. She is also aware of his anxiety. Will see If can get something ordered for him. Taken to dialysis by transport Patient in bed, anxious picking at everything. Refusing wound care to change his dressing. Dialysis is ready for patient. They would like me to hold off on his lopressor. Report called to Ana Laura in [facility] Multiple attempts to help patient get comfortable. He is angry because he wants me to leave the chair unlocked so he can push around. He is not safe to try and get up on own for he is very weak. Explained that and was very upset with me. I just reinforced that he cannot be in the chair if it is unlocked. So he asked to go back to bed. I got the assistance of another nurse to get him to bed and he then was upset because he want eat in chair first. Explained to him that is fine, I was just doing what he asked me to do. So he is in the chair with cushion until ready for bed. Call light in reach Patient in envella bed. Wound vac to buttocks. Assisted patient to chair with heavy assist of 2. Will myron back. Call light in reach Nurse to nurse report called to 1C. Pt in for transport. Patient Name: Jun Snyder Patient : 1965 Acct: [id number] Date of Admission: 01/19/2025 Room/Bed: T3321/T3321 A Code Status: Full Code Allergies: Allergies Allergen Reactions Lisinopril Swelling and Angioedema Diagnosis: Patient Active Problem List Diagnosis Anemia Paroxysmal A-fib ([facility]) ([facility]) HTN (hypertension) ESRD on hemodialysis ([facility]) ([facility]) 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 Diverticulosis Nonrheumatic aortic valve stenosis Calcification of abdominal aorta ([facility]) Missed vaccination due to patient refusal Tobacco abuse Alcohol use disorder in remission Atrial flutter, unspecified type ([facility]) RSV (acute bronchiolitis due to respiratory syncytial virus) Aortic stenosis Upper GI bleed S/P AVR Acute hypoxic respiratory failure (HCC) Acute encephalopathy Pneumoperitoneum Gastric ulceration Severe malnutrition ([facility]) ([facility]) Pleural effusion Peritonitis due to fungus ([facility]) History of abdominal surgery Leg DVT (deep venous thromboembolism), acute, left (HCC) 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, 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) 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HCC) Leukocytosis Decubitus ulcer of sacral region, unstageable (HCC) Pneumonia of both lungs due to methicillin susceptible Staphylococcus aureus (MSSA) (HCC) Sacral osteomyelitis (CMS/HCC) (HCC) Acute respiratory failure with hypoxia ([facility]) [J96.01] Tracheostomy care ([facility]) [Z43.0] 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[facility]) rn long term care (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 Complication of tracheostomy (CMS/HCC) ([facility]) BRBPR (bright red blood per rectum) Treatment: Hemodialysis 1:1 Priority: Routine Location: ICU Diabetic: No NPO: No Isolation Precautions: Dialysis Consent for Treatment Verified: Yes Blood Consent Verified: Not Applicable ICEBOAT: Identify, Equipment, Consent, HepB Status, Orders Complete, Access Verified, Timeliness Second Clinician Verifying: Bell Ge RN Time out performed prior to access at 1240. Report Received from Primary RN at 1145 Primary RN (First Initial, Last Name, Title): Bell Ge RN Incapacitated Nurse Education Completed: Yes P.P. HBsAg ONLY: Date Drawn: 2024 Results: Negative HBsAb: Date Drawn: 2024 Results: Susceptible <10 Order Dialyzer: Nipro Na+ Modeling: Not Applicable Dialysate Temperature (C): 36 Blood Flow Rate (BFR): 400 Dialysate Flow Rate (DFR): 600 Access to be Utilized Access: AVF Location: Upper Extremity Side: Left Needle gauge: 15 + Bruit/Thrill: Yes First Use X-ray Verified: Not Applicable OK to use line order: Not Applicable Site Assessment: Signs and Symptoms of Infection/Inflammation: None If yes: Not Applicable Dressing: NA Site Prep: Medical Aseptic Technique D Flows: Good If access problem, who was notified: Pre and Post-Assessment Patient Vitals for the past 8 hrs: Level of Consciousness Oriented X Heart Rhythm Respiratory Pattern O2 Device Bilateral Breath Sounds Skin Color Skin Condition/Temp Abdomen Inspection Bowel Sounds (All Quadrants) RUE Edema LUE Edema RLE Edema LLE Edema 01/26/25 1200 -- -- -- -- -- Clear;Diminished Ecchymosis Warm;Dry Soft;Flat Active None None None None 01/26/25 1226 Alert (0) 2 Regular Tachypnea None (Room air) Clear;Diminished Ecchymosis;Red Warm;Dry Soft;Flat Active -- -- -- -- 01/26/25 1620 Alert (0) 2 Regular Tachypnea None (Room air) Clear;Diminished -- Warm;Dry Soft;Flat Active -- -- -- -- Labs Lab Results Component Value Date/Time WBC 8.7 01/26/2025247 HGB 8.9 (L) 01/26/2025951 HGB 9.4 11/11/2024229 HCT 28.4 (L) 01/26/2025951 PLT 265 01/26/2025247 NA 136 01/26/2025247 K 5.1 01/26/2025247 CL 100 01/26/2025247 CO2 20 (L) 01/26/2025247 BUN 19 01/26/2025247 CREATININE 3.37 (H) 01/26/2025247 CREATININE 9.99 (H) 10/27/201945 CALCIUM 9.0 01/26/2025247 PHOS 5.3 (H) 01/26/2025247 IV Drips and Rate/Dose heparin, 5-30 Units/kg/hr, Last Rate: 7 Units/kg/hr (01/26/259) sodium chloride, 20 mL/hr, Last Rate: 20 mL/hr (01/25/252003) Safety - Before each treatment: Dialysis Machine No.: [id number] Machine Number: [id number] Dialyzer Lot No.: [id number] Tubing Lot Number: [id number] All Connections Secure: Yes Venous Parameters Set: Yes Arterial Parameters Set: Yes NS Bag: Yes Saline Line Double Clamped: Yes Dialyzer: Nipro Prime Volume (mL): 200 mL RO Machine Number: [id number] RO Machine Log Sheet Completed: Yes Machine Alarm Self Test: Completed, Passed (1226) (01/26/25 1226) Air Foam Detector: Tested, Proper Function, pH Reading Extracorporeal Circuit Tested for Integrity: Yes Machine Conductivity: 13.9 Manual Conductivity: 14 Manual Ph: 7.4 Bleach Test (Neg): Yes Bath Temperature: 36 C (96.8 F) Conductivity Meter Serial #: [id number] Machine Functioning Alarm Free? Yes Dialysis Bath: K+ (Potassium): 2 Ca+ (Calcium): 2.5 Na+ (Sodium): 137 HCO3 (Bicarb): 35 Bicarbonate Concentrate Lot No.: [id number] Acid Concentrate Lot No.: [id number] Chlorine Testing - Before each treatment and every 4 hours: Time On: 1245 Time Off: 1215 Treatment Goal: 2L Weight Height: 177.8 cm (5' 10) (01/24/25 1321) Weight: 58.9 kg (129 lb 13.6 oz) (01/19/25 06) BMI (Calculated): 18.63 (01/19/25 06) 1st check: less than 0.1 ppm at: 1215 2nd check: less than 0.1 ppm at: 1435 3rd check: Not Applicable (if greater than 0.1 ppm, then check every 30 minutes from secondary) Access Flows and Pressures Patient Vitals for the past 8 hrs: Blood Flow Rate (mL/min) Ultrafiltration Rate (ml/hr) Arterial Pressure (mmHg) Venous Pressure (mmHg) TMP DFR Access Visible Intra-Hemodialysis Comments 01/26/25 1245 200 mL/min 670 ml/hr -10 mmHg 110 mmHg 60 600 Yes Tx started, Lines secred, pt told to hold still. 01/26/25 1300 400 mL/min 670 ml/hr -110 mmHg 200 mmHg 70 600 Yes Pt alert, watching TV, Uf removed 193 01/26/25 1315 400 mL/min 670 ml/hr -120 mmHg 200 mmHg 70 600 Yes Pt playing with phone, UF removed 408 01/26/25 1330 400 mL/min 670 ml/hr -120 mmHg 210 mmHg 70 600 Yes Pt tolerating tx well, UF removed 497 01/26/25 1345 400 mL/min 670 ml/hr -120 mmHg 210 mmHg 70 600 Yes Pt playing with phone, UF removed 661 01/26/25 1400 400 mL/min 670 ml/hr -120 mmHg 210 mmHg 70 600 Yes pt tolerating tx well, UF removed 836 01/26/25 1415 400 mL/min 670 ml/hr -120 mmHg 210 mmHg 70 600 Yes 0 signs of distress, UF removed 990 01/26/25 1430 400 mL/min 670 ml/hr -130 mmHg 190 mmHg 70 600 Yes BiCarb changed, Pt reminded to hold still. 01/26/25 1445 400 mL/min 670 ml/hr -120 mmHg 210 mmHg 70 600 Yes Pt alert, Uf removed 1272 01/26/25 1500 400 mL/min 860 ml/hr -120 mmHg 210 mmHg 70 600 Yes Pt resting, UF removed 1468 01/26/25 1515 400 mL/min 860 ml/hr -120 mmHg 210 mmHg 70 600 Yes Pt playing on phone, UF removed 18001/26/25 1530 400 mL/min 860 ml/hr -120 mmHg 210 mmHg 70 600 Yes Pt tolerating tx well, UF removed 193501/26/25 1545 220 mL/min -- -- -- -- -- -- tx completed, UF [id number] Vital Signs Patient Vitals for the past 24 hrs: BP Temp Temp src Pulse Resp SpO2 01/26/25 1620 125/78 36.5 C (97.7 F) -- 85 16 97 % 01/26/25 1545 124/82 -- -- 83 15 100 % 01/26/25 1530 130/80 -- -- 82 15 97 % 01/26/25 1515 131/80 -- -- 84 15 99 % 01/26/25 1500 131/80 -- -- 84 15 99 % 01/26/25 1445 131/85 -- -- 82 13 96 % 01/26/25 1430 142/80 -- -- 84 14 99 % 01/26/25 1415 123/81 -- -- 80 (!) 11 97 % 01/26/25 1400 127/80 -- -- 84 16 100 % 01/26/25 1345 125/82 -- -- 83 14 100 % 01/26/25 1330 126/84 -- -- 82 13 97 % 01/26/25 1315 123/69 -- -- 80 (!) 10 95 % 01/26/25 1300 132/89 -- -- 82 14 95 % 01/26/25 1240 -- -- -- 84 (!) 27 97 % 01/26/25 1226 125/80 36.5 C (97.7 F) -- -- -- -- 01/26/25 1218 -- -- -- 84 15 99 % 01/26/25 1200 119/79 36.8 C (98.2 F) Temporal 90 19 93 % 01/26/25 1100 127/81 -- -- 85 15 94 % 01/26/25 1000 134/86 -- -- 88 (!) 28 96 % 01/26/25 0900 120/80 -- -- 82 13 98 % 01/26/25 0800 132/83 36.9 C (98.4 F) Temporal 83 16 100 % 01/26/25 0700 148/90 -- -- 93 21 96 % 01/26/25 0612 129/84 36.7 C (98 F) -- 88 17 -- 01/26/25 0600 -- -- -- 86 14 93 % 01/26/25 0500 140/82 -- -- 85 15 95 % 01/26/25 0400 122/79 -- -- 83 (!) 11 100 % 01/26/25 0355 125/81 36.7 C (98 F) Temporal 84 (!) 11 100 % 01/26/25 0339 125/82 37.2 C (99 F) -- 87 17 100 % 01/26/25 0300 125/82 -- -- 86 15 98 % 01/26/25 0200 128/76 -- -- 83 13 95 % 01/26/25 0100 116/74 -- -- 83 (!) 11 95 % 01/26/25 0000 111/77 36.7 C (98 F) Temporal 85 (!) 11 93 % 01/25/25 2300 115/80 -- -- 87 17 92 % 01/25/25 2200 112/73 -- -- 88 15 96 % 01/25/25 2100 105/60 -- -- 90 15 100 % 01/25/25 2000 92/63 36.7 C (98 F) Temporal (!) 133 (!) 28 94 % 01/25/25 1900 94/71 -- -- (!) 136 22 96 % 01/25/25 1800 114/71 -- -- 99 17 98 % 01/25/25 1700 109/75 -- -- 90 18 92 % 01/25/25 1657 -- -- -- (!) 170 -- -- Post-Dialysis Arterial Catheter Locking Solution: Not Applicable Venous Catheter Locking Solution: Not Applicable Post-Treatment Procedures: Blood returned, Access bleeding time < 10 minutes Machine Disinfection Process: Acid/Vinegar Clean, Heat Disinfect, Exterior Machine Disinfection Rinseback Volume (mL): 300 mL Total Liters Processed (L/min): 66 L/min Dialyzer Clearance: Clear Hemodialysis Intake (ml): 500 ml Hemodialysis Output (ml): 2080 ml NET Removed (ml): 1580 ml Tolerated Treatment: Good Interventions Taken: Ultrafiltration stopped, Ultrafiltration goal decreased Patient Response to Treatment: stable Physician Notified: No Patient Disposition: Remain in ICU/ED Charge: $ IP Hemodialysis Charge: Hemodialysis Provider Notification Provider Notification Reason for Communication: Critical lab value (aPTT was >139, gtt paused and will be restarted at 9 un/kg/hr,) Provider Name: Saskia Provider Role: Resident Method of Communication: Secure chat Response: Other (Comment) (aware) Notification Date: 01/25/25 Notification Time: 2037 Reason for Communication: Critical lab value (aPTT was >139, gtt paused and will be restarted at 9 un/kg/hr,) Provider Role: Resident Method of Communication: Secure chat Response: Other (Comment) (aware) Notification Time: 2037 Handoff complete and report given to Primary RN at 1625. Primary RN (First Initial, Last Name, Title): Bell Ge RN Education Person Educated: Patient Knowledge Base: Substantial Barriers to Learning?: Yes, including AMS Preferred method of Learning: Oral Topic(s): Access Care, Signs and Symptoms of Infection, and Procedural Teaching Tools: Explanation Response to Education: Requires Follow-up APTT >139, resident notified. Patient Name: Jun Snyder Patient : 1965 Acct: [id number] Date of Admission: 01/19/2025 Room/Bed: T3321/T3321 A Code Status: Full Code Allergies: Allergies Allergen Reactions Lisinopril Swelling and Angioedema Diagnosis: Patient Active Problem List Diagnosis Anemia Paroxysmal A-fib (CMS/HCC) (HCC) HTN (hypertension) ESRD on hemodialysis (CMS/HCC) (HCC) 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 Diverticulosis Nonrheumatic aortic valve stenosis Calcification of abdominal aorta (HCC) Missed vaccination due to patient refusal Tobacco abuse Alcohol use disorder in remission Atrial flutter, unspecified type (HCC) RSV (acute bronchiolitis due to respiratory syncytial virus) Aortic stenosis Upper GI bleed S/P AVR Acute hypoxic respiratory failure (HCC) Acute encephalopathy Pneumoperitoneum Gastric ulceration Severe malnutrition (CMS/HCC) (HCC) Pleural effusion Peritonitis due to fungus (HCC) History of abdominal surgery Leg DVT (deep venous thromboembolism), acute, left (HCC) 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, 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) 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HCC) Leukocytosis Decubitus ulcer of sacral region, unstageable (HCC) Pneumonia of both lungs due to methicillin susceptible Staphylococcus aureus (MSSA) (HCC) Sacral osteomyelitis (CMS/HCC) (HCC) Acute respiratory failure with hypoxia ([facility]) [J96.01] Tracheostomy care ([facility]) [Z43.0] 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HCC) senior living (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 Complication of tracheostomy (CMS/HCC) ([facility]) BRBPR (bright red blood per rectum) Treatment: Hemodialysis 1:1 Priority: Routine Location: ICU Diabetic: No NPO: Yes Isolation Precautions: Contact Consent for Treatment Verified: Yes Blood Consent Verified: Not Applicable ICEBOAT: Identify, Consent, Equipment, HepB Status, Orders Complete, Access Verified, Timeliness (o2 and suction functional at bedside) Second Clinician Verifying: Bell Delacruz RN Time out performed prior to access at 0925. Report Received from Primary RN at 0830. Primary RN (First Initial, Last Name, Title): Bell Delacruz RN Incapacitated Nurse Education Completed: Yes HBsAg ONLY: Date Drawn: December 26, 2024 Results: Negative HBsAb: Date Drawn: December 26, 2024 Results: Susceptible <10 Order Dialyzer: Nipro Na+ Modeling: Not Applicable Dialysate Temperature (C): 36 Blood Flow Rate (BFR): 400 Dialysate Flow Rate (DFR): 600 Access to be Utilized Access: AVF Location: Upper Extremity Side: Left Needle gauge: 15 + Bruit/Thrill: Yes Site Assessment: Signs and Symptoms of Infection/Inflammation: None If yes: Not Applicable Dressing: Dry and Intact Site Prep: Medical Aseptic Technique Dressing Changed this Treatment: Yes Gauze Dressing?: Yes Non-Dialysis Use?: No Comment: Flows: Good If access problem, who was notified: Pre and Post-Assessment Patient Vitals for the past 8 hrs: Level of Consciousness Oriented X Heart Rhythm Respiratory Pattern O2 Device Bilateral Breath Sounds Skin Color Skin Condition/Temp Abdomen Inspection Bowel Sounds (All Quadrants) Edema Generalized Edema RUE Edema LUE Edema RLE Edema LLE Edema Pre-Hemodialysis Comments 01/24/25 0800 -- -- -- Tachypnea -- -- Ecchymosis Warm;Dry Soft;Nondistended Active Other (Comment) Other (Comment) None None None None -- 01/24/25 0923 Alert (0) 4 Regular Tachypnea None (Room air) Clear;Diminished Ecchymosis Warm;Dry Soft;Nondistended Active -- -- None None None None incapacitated nurse review and patient education complete. patient A+O, educated on use of call light 01/24/25 1220 Alert (0) 4 Regular Tachypnea None (Room air) Clear;Diminished Ecchymosis Warm;Dry Soft;Nondistended Active -- -- None None None None -- Labs Lab Results Component Value Date/Time WBC 11.5 (H) 01/24/2025 0610 HGB 7.3 (L) 01/24/2025 1217 HGB 9.4 11/11/2024 0230 HCT 23.0 (L) 01/24/2025 1217 PLT 355 01/24/2025 0610 NA 138 01/24/2025 1217 K 3.5 01/24/2025 1217 CL 100 01/24/2025 1217 CO2 26 01/24/2025 1217 BUN 9 01/24/2025 1217 CREATININE 1.47 (H) 01/24/2025 1217 CREATININE 9.99 (H) 10/27/2019 0545 CALCIUM 9.3 01/24/2025 1217 PHOS 5.1 (H) 01/24/2025 0429 IV Drips and Rate/Dose sodium chloride, 20 mL/hr, Last Rate: 20 mL/hr (01/23/25 1648) Safety - Before each treatment: Dialysis Machine No.: [id number] RO Machine Number: [id number] Dialyzer Lot No.: [id number] Tubing Lot Number: [id number] All Connections Secure: Yes Venous Parameters Set: Yes Arterial Parameters Set: Yes NS Bag: Yes Saline Line Double Clamped: Yes Dialyzer: Nipro Prime Volume (mL): 200 mL RO Machine Number: [id number] RO Machine Log Sheet Completed: Yes Machine Alarm Self Test: Completed, Passed (test passed at 0923) (01/24/25924) Air Foam Detector: Tested, Proper Function, pH Reading Extracorporeal Circuit Tested for Integrity: Yes Machine Conductivity: 13.8 Manual Conductivity: 13.8 Manual Ph: 7.2 Bleach Test (Neg): Yes (water check negative at 0910) Bath Temperature: 36 C (96.8 F) Conductivity Meter Serial #: [id number] Machine Functioning Alarm Free? Yes Dialysis Bath: K+ (Potassium): 3 Ca+ (Calcium): 2.5 Na+ (Sodium): 137 HCO3 (Bicarb): 35 Bicarbonate Concentrate Lot No.: [id number] Acid Concentrate Lot No.: [id number] Chlorine Testing - Before each treatment and every 4 hours: Time On: 0930 Time Off: 1215 Treatment Goal: 0-2L as tolerated MAP >65 Weight Height: 177.8 cm (5' 10) (01/19/25656) Weight: 58.9 kg (129 lb 13.6 oz) (01/19/25656) BMI (Calculated): 18.63 (01/19/25656) 1st check: less than 0.1 ppm at: 0910 2nd check: less than 0.1 ppm at: NA 3rd check: Not Applicable (if greater than 0.1 ppm, then check every 30 minutes from secondary) Access Flows and Pressures Patient Vitals for the past 8 hrs: Blood Flow Rate (mL/min) Ultrafiltration Rate (ml/hr) Arterial Pressure (mmHg) Venous Pressure (mmHg) TMP DFR Access Visible Intra-Hemodialysis Comments 01/24/25 0930 400 mL/min 550 ml/hr -20 mmHg 110 mmHg 80 600 Yes tx initiated, 200 ml NS prime given, patient alert, call light in reach 01/24/25 0947 400 mL/min 550 ml/hr -50 mmHg 120 mmHg 80 600 Yes access visible, lines secured. fluid removal 120ml 01/24/25 1000 400 mL/min 550 ml/hr -60 mmHg 130 mmHg 70 600 Yes patient reminded not to pull at lines, fluid removal 245ml 01/24/25 1015 -- -- -- -- -- -- -- BP cuff readjust 01/24/25 1016 400 mL/min 550 ml/hr -70 mmHg 150 mmHg 60 600 Yes eyes closed patient resting, fluid removal 410ml 01/24/25 1030 400 mL/min 550 ml/hr -70 mmHg 160 mmHg 70 600 Yes pt repositioned for comfort. fluid removal 555ml 01/24/25 1045 400 mL/min 550 ml/hr -70 mmHg 170 mmHg [address] Nicole at bedside. fluid removal 676ml 01/24/25 1100 400 mL/min 550 ml/hr -70 mmHg 200 mmHg 60 600 Yes primary RN at bedside, fluid removal 786ml 01/24/25 1115 400 mL/min 540 ml/hr -70 mmHg 150 mmHg 70 600 Yes access visible, call light in reach. fluid removal 934ml 01/24/25 1130 400 mL/min 540 ml/hr 80 mmHg 160 mmHg 60 600 Yes chest rises and falls 01/24/25 1145 400 mL/min 550 ml/hr -80 mmHg 160 mmHg 70 600 Yes physician at bedside, pt alert, fluid removal 1221ml 01/24/25 1200 400 mL/min 550 ml/hr -90 mmHg 160 mmHg 70 600 Yes bicarb jug changed, fluid removal 1345ml 01/24/25 1215 400 mL/min 550 ml/hr -90 mmHg 150 mmHg 70 600 Yes Tx complete, 300 ml NS rinseback given. fluid removal 1500 ml Vital Signs Patient Vitals for the past 24 hrs: BP Temp Temp src Pulse Resp SpO2 01/24/25 1311 107/57 -- -- 98 19 100 % 01/24/25 1309 -- -- -- 97 18 100 % 01/24/25 1309 102/58 -- -- 99 23 100 % 01/24/25 1309 109/59 -- -- 96 16 100 % 01/24/25 1309 107/57 -- -- -- -- -- 01/24/25 1307 109/59 -- -- 95 17 100 % 01/24/25 1306 109/59 -- -- -- -- -- 01/24/25 1305 100/55 -- -- 93 15 100 % 01/24/25 1304 -- -- -- 93 15 100 % 01/24/25 1303 107/57 -- -- 93 14 100 % 01/24/25 1300 107/57 -- -- 93 (!) 33 100 % 01/24/25 1300 107/57 -- -- -- -- -- 01/24/25 1259 -- -- -- 95 24 100 % 01/24/25 1258 117/64 -- -- 92 (!) 91 100 % 01/24/25 1256 113/64 -- -- 87 (!) 41 100 % 01/24/25 1254 -- -- -- 89 18 100 % 01/24/25 1254 113/64 -- -- -- -- -- 01/24/25 1251 104/57 -- -- -- -- -- 01/24/25 1249 -- -- -- 94 18 100 % 01/24/25 1228 -- -- -- 88 16 100 % 01/24/25 1220 127/72 36.6 C (97.8 F) -- 87 (!) 28 100 % 01/24/25 1215 118/67 -- -- 87 16 100 % 01/24/25 1200 119/65 -- -- 80 (!) 11 100 % 01/24/25 1145 120/76 -- -- 91 19 100 % 01/24/25 1130 116/68 -- -- 82 (!) 10 100 % 01/24/25 1115 124/67 -- -- 80 12 100 % 01/24/25 1100 116/71 -- -- 91 22 100 % 01/24/25 1045 121/67 -- -- 95 23 99 % 01/24/25 1030 111/76 -- -- 96 (!) 27 100 % 01/24/25 1016 111/59 -- -- 86 12 96 % 01/24/25 1015 (!) 93/48 -- -- 85 12 97 % 01/24/25 1000 121/67 -- -- 89 25 97 % 01/24/25 0947 114/66 -- -- 84 (!) 32 99 % 01/24/25 0930 119/65 -- -- 100 (!) 27 100 % 01/24/25 0923 122/63 36.7 C (98.1 F) -- 103 (!) 28 98 % 01/24/25 0900 -- -- -- 100 16 96 % 01/24/25 0800 138/81 -- -- 82 17 100 % 01/24/25 0700 129/73 -- -- 85 (!) 11 94 % 01/24/25 0600 123/71 -- -- 83 18 99 % 01/24/25 0500 123/77 -- -- 86 15 94 % 01/24/25 0400 126/78 36.8 C (98.2 F) Temporal 92 16 96 % 01/24/25 0300 106/75 -- -- 86 19 99 % 01/24/25 0200 114/72 -- -- 95 (!) 31 96 % 01/24/25 0100 133/75 -- -- 81 (!) 11 97 % 01/24/25 0000 144/78 36.6 C (97.8 F) Temporal 80 (!) 10 98 % 01/23/25 2300 134/79 -- -- 84 17 100 % 01/23/25 2200 124/84 -- -- 87 25 100 % 01/23/25 2100 125/61 -- -- 85 15 95 % 01/23/25 2000 132/77 36.4 C (97.6 F) Temporal 87 14 97 % 01/23/25 1900 126/79 -- -- 87 18 100 % 01/23/25 1700 123/86 -- -- 90 16 95 % 01/23/25 1600 114/72 36.7 C (98 F) Temporal 96 16 96 % 01/23/25 1500 125/61 -- -- 92 15 92 % Post-Dialysis Arterial Catheter Locking Solution: Not Applicable Venous Catheter Locking Solution: Not Applicable Post-Treatment Procedures: Blood returned, Access bleeding time < 10 minutes Machine Disinfection Process: Exterior Machine Disinfection Rinseback Volume (mL): 300 mL Total Liters Processed (L/min): 61.7 L/min Dialyzer Clearance: Lightly streaked Hemodialysis Intake (ml): 500 ml Hemodialysis Output (ml): 1500 ml NET Removed (ml): 1000 ml Tolerated Treatment: Good Interventions Taken: Ultrafiltration stopped, Ultrafiltration goal decreased Patient Response to Treatment: tolerated without difficulty Physician Notified: No Patient Disposition: Remain in ICU/ED Charge: $ IP Hemodialysis Charge: Hemodialysis Provider Notification Provider Notification Reason for Communication: Other (Comment) (Pt threw up clear liquid) Provider Name: Reyes Provider Role: Resident Method of Communication: Secure chat Response: En route Notification Date: 01/24/25 Notification Time: 411 Reason for Communication: Other (Comment) (Pt threw up clear liquid) Provider Role: Resident Method of Communication: Secure chat Response: En route Notification Time: 411 Handoff complete and report given to Primary RN at 1220. Primary RN (First Initial, Last Name, Title): Bell Delacruz RN Education Person Educated: Patient Knowledge Base: Substantial Barriers to Learning?: None Preferred method of Learning: Oral Topic(s): Procedural Teaching Tools: Explanation Response to Education: Verbalized Understanding Patient Name: Jun Snyder Patient : 1965 Acct: [id number] Date of Admission: 01/19/2025 Room/Bed: T3321/T3321 A Code Status: Full Code Allergies: Allergies Allergen Reactions Lisinopril Swelling and Angioedema Diagnosis: Patient Active Problem List Diagnosis Anemia Paroxysmal A-fib ([facility]) ([facility]) HTN (hypertension) ESRD on hemodialysis ([facility]) ([facility]) 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 Diverticulosis Nonrheumatic aortic valve stenosis Calcification of abdominal aorta ([facility]) Missed vaccination due to patient refusal Tobacco abuse Alcohol use disorder in remission Atrial flutter, unspecified type ([facility]) RSV (acute bronchiolitis due to respiratory syncytial virus) Aortic stenosis Upper GI bleed S/P AVR Acute hypoxic respiratory failure ([facility]) Acute encephalopathy Pneumoperitoneum Gastric ulceration Severe malnutrition ([facility]) ([facility]) Pleural effusion Peritonitis due to fungus ([facility]) History of abdominal surgery Leg DVT (deep venous thromboembolism), acute, left ([facility]) 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, 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 of skin ([facility]) 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[facility]) Leukocytosis Decubitus ulcer of sacral region, unstageable ([facility]) Pneumonia of both lungs due to methicillin susceptible Staphylococcus aureus (MSSA) ([facility]) Sacral osteomyelitis (CMS/HCC) ([facility]) Acute respiratory failure with hypoxia ([facility]) [J96.01] Tracheostomy care ([facility]) [Z43.0] 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[facility]) rn long term care (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 Complication of tracheostomy (CMS/HCC) ([facility]) Treatment: Hemodialysis 1:1 Priority: Routine Location: ICU Diabetic: No NPO: Yes Isolation Precautions: Contact Consent for Treatment Verified: Yes Blood Consent Verified: Not Applicable ICEBOAT: Identify, Consent, Equipment, HepB Status, Orders Complete, Access Verified, Timeliness Second Clinician Verifying: Robbie Beltran RN Time out performed prior to access at 0851. Report Received from Primary RN at 0730. Primary RN (First Initial, Last Name, Title): Bell Delacruz RN Incapacitated Nurse Education Completed: Yes HBsAg ONLY: Date Drawn: December 26, 2024 Results: Negative HBsAb: Date Drawn: December 26, 2024 Results: Susceptible <10 Order Dialyzer: Nipro Na+ Modeling: Not Applicable Dialysate Temperature (C): 36 Blood Flow Rate (BFR): 400 Dialysate Flow Rate (DFR): 600 Access to be Utilized Access: AVF Location: Upper Extremity Side: Left Needle gauge: 15 + Bruit/Thrill: Yes First Use X-ray Verified: Not Applicable OK to use line order: Not Applicable Site Assessment: Signs and Symptoms of Infection/Inflammation: Yes, see line below If yes: Redness Dressing: Soiled Site Prep: Medical Aseptic Technique Dressing Changed this Treatment: If yes, by whom: Date of Last Dressing Change: Antimicrobial Patch in place?: N/A Red Alcohol Caps in place?: N/A Gauze Dressing?: Non-Dialysis Use?: No Comment: Flows: Good and Patent If access problem, who was notified: Pre and Post-Assessment Patient Vitals for the past 8 hrs: Level of Consciousness O2 Device Bilateral Breath Sounds Abdomen Inspection Bowel Sounds (All Quadrants) Edema Generalized Edema RUE Edema LUE Edema RLE Edema LLE Edema Pain Interventions 01/22/25 0800 -- -- -- Soft;Gastrostomy tube Active Other (Comment) Other (Comment) None None None None -- 01/22/25850 Alert (0) None (Room air) Diminished Soft;Nondistended Active -- -- -- -- -- -- Relaxation technique;Medication (See MAR) Labs Lab Results Component Value Date/Time WBC 10.6 01/22/2025418 HGB 8.0 (L) 01/22/2025418 HGB 9.4 11/11/2024 0230 HCT 25.1 (L) 01/22/2025418 PLT 330 01/22/2025418 NA 132 (L) 01/22/2025418 K 4.4 01/22/2025418 CL 94 (L) 01/22/2025418 CO2 25 01/22/2025418 BUN 53 (H) 01/22/2025418 CREATININE 4.18 (H) 01/22/2025418 CREATININE 9.99 (H) 10/27/2019 05 CALCIUM 9.8 01/22/2025418 PHOS 6.8 (H) 01/22/2025418 IV Drips and Rate/Dose Safety - Before each treatment: Dialysis Machine No.: [id number] RO Machine Number: [id number] Dialyzer Lot No.: [id number] Tubing Lot Number: [id number] All Connections Secure: Yes Venous Parameters Set: Yes Arterial Parameters Set: Yes NS Bag: Yes Saline Line Double Clamped: Yes Dialyzer: Nipro Prime Volume (mL): 250 mL RO Machine Number: [id number] RO Machine Log Sheet Completed: Yes Machine Alarm Self Test: Completed, Passed (01/22/25850) Air Foam Detector: Tested, Proper Function, pH Reading Extracorporeal Circuit Tested for Integrity: Yes Machine Conductivity: (13.8) Manual Conductivity: 14 Manual Ph: 7.2 Bleach Test (Neg): Yes Bath Temperature: 36 C (96.8 F) Conductivity Meter Serial #: [id number] Machine Functioning Alarm Free? Yes Dialysis Bath: K+ (Potassium): 2 Ca+ (Calcium): 2.5 Na+ (Sodium): 137 HCO3 (Bicarb): 35 Bicarbonate Concentrate Lot No.: [id number] Acid Concentrate Lot No.: [id number] Chlorine Testing - Before each treatment and every 4 hours: Time On: 0902 Time Off: 1203 Treatment Goal: 0-2L as tolerated MAP >65 Weight Height: 177.8 cm (5' 10) (01/19/25656) Weight: 58.9 kg (129 lb 13.6 oz) (01/19/25656) BMI (Calculated): 18.63 (01/19/25656) 1st check: less than 0.1 ppm at: 0845 2nd check: less than 0.1 ppm at: 1130 3rd check: Not Applicable (if greater than 0.1 ppm, then check every 30 minutes from secondary) Access Flows and Pressures Patient Vitals for the past 8 hrs: Blood Flow Rate (mL/min) Ultrafiltration Rate (ml/hr) Arterial Pressure (mmHg) Venous Pressure (mmHg) TMP DFR Access Visible Intra-Hemodialysis Comments 01/22/25 0902 400 mL/min 830 ml/hr -70 mmHg 130 mmHg 70 600 Yes tx initiated 01/22/25 0915 400 mL/min 830 ml/hr -110 mmHg 200 mmHg 70 600 Yes no HD complications, 180 ml removed 01/22/25 0930 400 mL/min 830 ml/hr -120 mmHg 200 mmHg 70 600 Yes pt alert, no voiced concerns, 380 ml removed 01/22/25 0945 400 mL/min 830 ml/hr -130 mmHg 200 mmHg 60 600 Yes no s/s of distress, 580 ml removed 01/22/25 1000 400 mL/min 830 ml/hr -130 mmHg 210 mmHg [address] Nicole at bedside, 775 ml removede 01/22/25 1015 400 mL/min 830 ml/hr -180 mmHg 190 mmHg 70 600 Yes lines secure and visible., 990 ml removed 01/22/25 1030 400 mL/min 830 ml/hr -140 mmHg 200 mmHg 70 600 Yes decreased UF goal 1190 ml removed 01/22/25 1031 400 mL/min 530 ml/hr -140 mmHg 200 mmHg 70 600 Yes BP rechecked, MAP 71, 1210 ml removed 01/22/25 1035 400 mL/min 530 ml/hr -140 mmHg 190 mmHg 70 600 Yes BP improving, pt alert 1240 ml removed 01/22/25 1040 400 mL/min 530 ml/hr -130 mmHg 200 mmHg 70 600 Yes primary nurse at bedside, BP continues to improve, 1280 ml removed 01/22/25 1045 400 mL/min 530 ml/hr -130 mmHg 200 mmHg 70 600 Yes increase UF goal, 1360 mlremoved 01/22/25 1050 400 mL/min 920 ml/hr -130 mmHg 200 mmHg 70 600 Yes pt resting with eyes closed, 01/22/25 1055 400 mL/min 920 ml/hr -130 mmHg 200 mmHg 70 600 Yes no HD complications, 1530 ml removed 01/22/25 1100 400 mL/min 920 ml/hr -140 mmHg 200 mmHg 70 600 Yes set UF goal to 1.7 kg, 1585 ml removed 01/22/25 1105 400 mL/min 620 ml/hr -140 mmHg 200 mmHg 60 600 Yes pt states he feels ok, 1640 ml removed 01/22/25 1110 400 mL/min 620 ml/hr -140 mmHg 200 mmHg 60 600 Yes continue to monitor BP, lines secure and visible, 1690 ml removed 01/22/25 1115 400 mL/min 620 ml/hr -140 mmHg 200 mmHg 60 600 Yes no s/s of distress, 1730 ml removed 01/22/25 1120 400 mL/min 620 ml/hr -140 mmHg 190 mmHg 60 600 Yes pt resting with eyes closed, 1780 ml removed 01/22/25 1125 400 mL/min 620 ml/hr -140 mmHg 200 mmHg 60 600 Yes no HD complications, 1740 ml removed 01/22/25 1130 400 mL/min 620 ml/hr -130 mmHg 200 mmHg 60 600 Yes pt resting with eyes closed, 1885 ml removed 01/22/25 1145 400 mL/min 620 ml/hr -140 mmHg 200 mmHg 70 600 Yes UF off, 2055 ml removed 01/22/25 1150 400 mL/min 0 ml/hr -140 mmHg 190 mmHg 50 600 Yes UF remains off, pt resting with eyes closed 01/22/25 1203 400 mL/min 0 ml/hr -150 mmHg 200 mmHg 70 600 Yes tx complete Vital Signs Patient Vitals for the past 24 hrs: BP Temp Temp src Pulse Resp SpO2 01/22/25 1215 111/60 37.3 C (99.2 F) -- 96 23 99 % 01/22/25 1203 104/67 -- -- 94 12 100 % 01/22/25 1145 (!) 91/44 -- -- 108 12 99 % 01/22/25 1130 114/67 -- -- 98 (!) 11 99 % 01/22/25 1125 111/64 -- -- 111 24 100 % 01/22/25 1120 99/60 -- -- 101 (!) 11 97 % 01/22/25 1115 99/62 -- -- 105 18 96 % 01/22/25 1110 (!) -- -- 101 22 96 % 01/22/25 1105 (!) / -- -- 109 21 96 % 01/22/25 1100 90/57 -- -- 102 14 97 % 01/22/25 1055 103/65 -- -- 101 23 98 % 01/22/25 1050 105/67 -- -- 103 22 99 % 01/22/25 1045 111/66 -- -- 102 15 96 % 01/22/25 1040 114/70 -- -- 102 22 98 % 01/22/25 1035 99/88 -- -- 113 22 98 % 01/22/25 1031 (!) -- -- 106 (!) 27 99 % 01/22/25 1030 93/59 -- -- 110 19 99 % 01/22/25 1015 115/66 -- -- 102 22 95 % 01/22/25 1000 117/75 -- -- 104 (!) 27 97 % 01/22/25 0945 124/82 -- -- 102 22 97 % 01/22/25 0930 130/83 -- -- 100 18 99 % 01/22/25 0915 127/80 -- -- 96 20 100 % 01/22/25 0902 128/71 -- -- 97 20 98 % 01/22/25 0900 132/74 -- -- 96 16 98 % 01/22/25 0851 129/77 36.9 C (98.4 F) -- 97 17 99 % 01/22/2527 -- -- -- -- -- 97 % 01/22/25 0800 125/69 -- -- 89 14 97 % 01/22/25 0700 118/66 -- -- 89 12 100 % 01/22/25 0500 119/70 -- -- 87 15 100 % 01/22/25 0400 115/73 36.8 C (98.2 F) Temporal 79 19 95 % 01/22/25 0300 104/61 -- -- 76 17 94 % 01/22/25 0200 104/62 -- -- 81 17 94 % 01/22/25 0100 106/63 -- -- 78 14 94 % 01/22/25 0000 112/50 36.6 C (97.8 F) Temporal 84 19 97 % 01/21/25 2343 120/71 -- -- 86 20 99 % 01/21/25 2307 -- -- -- 82 (!) 11 94 % 01/21/25 2300 -- -- -- 82 12 95 % 01/21/25 2200 114/68 -- -- 83 13 94 % 01/21/25 2100 111/64 -- -- 86 (!) 11 95 % 01/21/25 2000 104/62 36.6 C (97.8 F) Temporal 87 21 94 % 01/21/25 1900 109/58 -- -- 89 20 94 % 01/21/25 1800 121/61 -- -- 95 18 100 % 01/21/25 1700 124/72 -- -- 89 21 96 % 01/21/25 1606 -- -- -- 84 16 96 % 01/21/25 1600 101/59 -- -- 81 (!) 9 95 % 01/21/25 1540 -- 37.1 C (98.7 F) Temporal 82 (!) 9 95 % 01/21/25 1500 111/68 -- -- 88 (!) 11 94 % 01/21/25 1400 111/63 -- -- 83 15 93 % 01/21/25 1300 107/70 -- -- 87 16 94 % Post-Dialysis Arterial Catheter Locking Solution: Not Applicable Venous Catheter Locking Solution: Not Applicable Post-Treatment Procedures: Blood returned, Access bleeding time > 10 minutes Machine Disinfection Process: Exterior Machine Disinfection Rinseback Volume (mL): 250 mL Total Liters Processed (L/min): 66.6 L/min Dialyzer Clearance: Clear Hemodialysis Intake (ml): 500 ml Hemodialysis Output (ml): 2055 ml NET Removed (ml): 1555 ml Tolerated Treatment: Fair Interventions Taken: Ultrafiltration stopped, Ultrafiltration goal decreased Patient Response to Treatment: stable Physician Notified: No Patient Disposition: Remain in ICU/ED Charge: $ IP Hemodialysis Charge: Hemodialysis Provider Notification: N/A Handoff complete and report given to Primary RN at 1220. Primary RN (First Initial, Last Name, Title): Bell Delacruz RN Education Person Educated: Patient Knowledge Base: Substantial Barriers to Learning?: None Preferred method of Learning: Oral Topic(s): Access Care and Procedural Teaching Tools: Explanation Response to Education: Verbalized Understanding Pt c/o itchy skin under his abd binder and requested it was removed. RN removed the Binder and placed a spilt gauze under the PEG tube bumper. While in the room RN Flushed the Q4 hr 50 ml flush in the PEG. RN went into room to Introduce self to pt, update white board, and go over meds. Pt was laying in bed awake, pt stated his pain was a 4/10, it is in his ribs (per from cpr) and his abd. Pt did agree to take his prn oxy to see if that helps. Pts is ordered cont Protonix IV that was restart. Pt needed nothing else at this time. Bed in lowest position, brakes locked and call light with in reach. Patient Name: Jun Snyder Patient : 1965 Acct: [id number] Date of Admission: 01/19/2025 Room/Bed: [facility] A Code Status: Full Code Allergies: Allergies Allergen Reactions Lisinopril Swelling and Angioedema Diagnosis: Patient Active Problem List Diagnosis Anemia Paroxysmal A-fib (CMS/HCC) (HCC) HTN (hypertension) ESRD on hemodialysis (CMS/HCC) (HCC) 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 Diverticulosis Nonrheumatic aortic valve stenosis Calcification of abdominal aorta (HCC) Missed vaccination due to patient refusal Tobacco abuse Alcohol use disorder in remission Atrial flutter, unspecified type (HCC) RSV (acute bronchiolitis due to respiratory syncytial virus) Aortic stenosis Upper GI bleed S/P AVR Acute hypoxic respiratory failure (HCC) Acute encephalopathy Pneumoperitoneum Gastric ulceration Severe malnutrition (CMS/HCC) (HCC) Pleural effusion Peritonitis due to fungus (HCC) History of abdominal surgery Leg DVT (deep venous thromboembolism), acute, left (HCC) 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, 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) 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HCC) Leukocytosis Decubitus ulcer of sacral region, unstageable (HCC) Pneumonia of both lungs due to methicillin susceptible Staphylococcus aureus (MSSA) (HCC) Sacral osteomyelitis (CMS/HCC) (HCC) Acute respiratory failure with hypoxia ([facility]) [J96.01] Tracheostomy care ([facility]) [Z43.0] 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HCC) rn long term care (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 Complication of tracheostomy (CMS/HCC) ([facility]) Treatment: Hemodialysis 1:1 Priority: Routine Location: Bedside Diabetic: Yes NPO: Yes Isolation Precautions: Contact Consent for Treatment Verified: Yes Blood Consent Verified: Not Applicable ICEBOAT: Identify, Consent, Equipment, HepB Status, Orders Complete, Access Verified, Timeliness Second Clinician Verifying: Robbie Beltran RN Time out performed prior to access at 1015. Report Received from Primary RN at 0900. Primary RN (First Initial, Last Name, Title): Robbie Beltran RN Incapacitated Nurse Education Completed: Yes P.K. HBsAg ONLY: Date Drawn: December 26, 2024 Results: Negative HBsAb: Date Drawn: December 26, 2024 Results: Susceptible <10 Order Dialyzer: Nipro Na+ Modeling: Not Applicable Dialysate Temperature (C): 36 Blood Flow Rate (BFR): 400 Dialysate Flow Rate (DFR): 600 Access to be Utilized Access: AVF Location: Upper Extremity Side: Left Needle gauge: 15 + Bruit/Thrill: Yes First Use X-ray Verified: Not Applicable OK to use line order: Not Applicable Site Assessment: Signs and Symptoms of Infection/Inflammation: None If yes: Not Applicable Dressing: NA Site Prep: Medical Aseptic Technique D Flows: Good If access problem, who was notified: Pre and Post-Assessment Patient Vitals for the past 8 hrs: Level of Consciousness Oriented X Heart Rhythm Respiratory Pattern O2 Device Bilateral Breath Sounds Skin Color Skin Condition/Temp Abdomen Inspection Bowel Sounds (All Quadrants) Edema Generalized Edema RUE Edema LUE Edema RLE Edema LLE Edema 01/20/25 0818 -- -- -- Tachypnea -- -- -- -- -- Active -- -- -- -- -- -- 01/20/25 1000 Alert (0) x2 Regular Tachypnea None (Room air) Clear;Diminished Ecchymosis Warm;Dry Soft;Rounded Active Generalized -- None None None None 01/20/25 1142 -- -- -- -- -- -- -- -- Soft;Nondistended Active -- -- -- -- -- -- 01/20/25 1321 Alert (0) x2 Regular Other (Comment) None (Room air) Clear -- Warm;Dry Soft;Nondistended Active Other (Comment) Other (Comment) -- -- -- -- Labs Lab Results Component Value Date/Time WBC 10.5 01/20/2025 05 HGB 8.2 (L) 01/20/2025 0801 HGB 9.4 11/11/2024 0230 HCT 25.8 (L) 01/20/2025 0801 PLT 279 01/20/202514 NA 135 (L) 01/20/202514 K 4.8 01/20/2025 05 CL 98 01/20/2025 0514 CO2 22 01/20/2025 0514 BUN 91 (H) 01/20/2025 05 CREATININE 4.31 (H) 01/20/2025513 CREATININE 9.99 (H) 10/27/2019 0545 CALCIUM 9.2 01/20/2025513 PHOS 6.1 (H) 01/20/2025513 IV Drips and Rate/Dose pantoprazole (ProtoNix) 80 mg in sodium chloride 0.9 % 100 mL (0.8 mg/mL) infusion, 8 mg/hr Safety - Before each treatment: Dialysis Machine No.: [id number] RO Machine Number: [id number] Dialyzer Lot No.: [id number] Tubing Lot Number: [id number] All Connections Secure: Yes Venous Parameters Set: Yes Arterial Parameters Set: Yes NS Bag: Yes Saline Line Double Clamped: Yes Dialyzer: Nipro Prime Volume (mL): 200 mL RO Machine Number: [id number] RO Machine Log Sheet Completed: Yes Machine Alarm Self Test: Completed, Passed (1000) (01/20/25 1000) Air Foam Detector: Tested, Proper Function, pH Reading Extracorporeal Circuit Tested for Integrity: Yes Machine Conductivity: 13.6 Manual Conductivity: 13.8 Manual Ph: 7.2 Bleach Test (Neg): Yes Bath Temperature: 36 C (96.8 F) Conductivity Meter Serial #: [id number] Machine Functioning Alarm Free? Yes Dialysis Bath: K+ (Potassium): 2 Ca+ (Calcium): 2.5 Na+ (Sodium): 137 HCO3 (Bicarb): 35 Bicarbonate Concentrate Lot No.: [id number] Acid Concentrate Lot No.: [id number] Chlorine Testing - Before each treatment and every 4 hours: Time On: 1021 Weight Height: 177.8 cm (5' 10) (01/19/25656) Weight: 58.9 kg (129 lb 13.6 oz) (01/19/25656) BMI (Calculated): 18.63 (01/19/25656) 1st check: less than 0.1 ppm at: 1000 2nd check: less than 0.1 ppm at: 1220 3rd check: Not Applicable (if greater than 0.1 ppm, then check every 30 minutes from secondary) Access Flows and Pressures Patient Vitals for the past 8 hrs: Blood Flow Rate (mL/min) Ultrafiltration Rate (ml/hr) Arterial Pressure (mmHg) Venous Pressure (mmHg) TMP DFR Access Visible Intra-Hemodialysis Comments 01/20/25 1021 200 mL/min 500 ml/hr -30 mmHg 80 mmHg 90 600 Yes tx started, lines secured, call light in reach 01/20/25 1030 400 mL/min 500 ml/hr -140 mmHg 180 mmHg 80 600 Yes pt alert, UF removed 90 01/20/25 1045 400 mL/min 600 ml/hr -140 mmHg 200 mmHg 80 600 Yes Pt tolerating tx well, UF removed 236 01/20/25 1100 400 mL/min 600 ml/hr -140 mmHg 190 mmHg 80 600 Yes GI at bedside, UF removed 345 01/20/25 1115 400 mL/min 600 ml/hr -140 mmHg 180 mmHg 80 600 Yes ID at bedside, UF [id number] 01/20/25 1130 400 mL/min 600 ml/hr -140 mmHg 210 mmHg 80 600 Yes Primary RN at bedside, blood clots noted coming from rectum, GI aware, UF removed 586. 01/20/25 1145 400 mL/min 600 ml/hr -140 mmHg 220 mmHg 80 600 Yes Primary RN at bedside, Yuriyorine givenat this time, UF removed 726 01/20/25 1150 -- -- -- -- -- -- -- B/P rechecked 01/20/25 1200 400 mL/min 600 ml/hr -130 mmHg 210 mmHg 90 600 Yes Pt resting, UF removed 824 01/20/25 1215 400 mL/min 600 ml/hr -140 mmHg 250 mmHg 90 600 Yes pt tolerating tx well, UF removed 965 01/20/25 1230 400 mL/min 600 ml/hr -140 mmHg 210 mmHg 90 600 Yes Pt resting, UF removed 1105 01/20/25 1245 200 mL/min -- -- -- -- -- -- ICU team request Tx to stop, CTA scheduled soon. UF removed 1224 Vital Signs Patient Vitals for the past 24 hrs: BP Temp Temp src Pulse Resp SpO2 01/20/25 1321 103/58 (!) 35.9 C (96.7 F) -- 91 16 97 % 01/20/25 1245 99/50 -- -- 118 -- -- 01/20/25 1230 95/59 -- -- 85 -- -- 01/20/25 1215 93/57 -- -- 86 -- -- 01/20/25 1200 92/52 -- -- 87 -- -- 01/20/25 1150 (!) -- -- 91 -- -- 01/20/25 1145 (!) -- -- 95 -- -- 01/20/25 1130 91/55 -- -- 115 -- -- 01/20/25 1115 (!) -- -- 91 -- -- 01/20/25 1100 (!) 92/47 -- -- 90 -- -- 01/20/25 1045 99/54 -- -- 87 -- -- 01/20/25 1030 91/50 -- -- 90 -- -- 01/20/25 1021 93/57 -- -- 89 -- -- 01/20/25 1000 94/60 (!) 35.9 C (96.7 F) -- 94 18 94 % 01/20/25 0818 -- -- -- 96 17 97 % 01/20/25 0524 100/58 36.1 C (97 F) Temporal 86 14 96 % 01/20/25 0353 -- -- -- 79 22 93 % 01/19/25 2335 107/67 36.3 C (97.3 F) Temporal 78 20 94 % 01/19/252000 95/61 -- -- -- -- -- 01/19/251999 -- 36.6 C (97.8 F) Temporal 77 14 98 % 01/19/25 1617 -- -- -- 81 -- 100 % 01/19/25 1600 113/67 36.3 C (97.4 F) Temporal 84 25 98 % 01/19/25 1505 110/75 -- -- 85 (!) 28 100 % 01/19/25 1500 110/75 -- -- 85 14 100 % 01/19/25 1403 92/59 -- -- 80 13 100 % 01/19/25 1400 92/59 -- -- 80 (!) 11 99 % Post-Dialysis Arterial Catheter Locking Solution: Not Applicable Venous Catheter Locking Solution: Not Applicable Post-Treatment Procedures: Blood returned, Access bleeding time > 10 minutes Machine Disinfection Process: Acid/Vinegar Clean, Heat Disinfect, Exterior Machine Disinfection Rinseback Volume (mL): 300 mL Total Liters Processed (L/min): 53.4 L/min Dialyzer Clearance: Lightly streaked Hemodialysis Intake (ml): 600 ml Hemodialysis Output (ml): 1224 ml NET Removed (ml): 624 ml Tolerated Treatment: Fair Interventions Taken: Medication Patient Response to Treatment: Stable Physician Notified: Yes Patient Disposition: Other (Comment) (scheduled for CTA, possible ICU transfer) Charge: $ IP Hemodialysis Charge: Hemodialysis Provider Notification Provider Notification Reason for Communication: Critical lab value (Hgb 6.6) Provider Name: [employer] certified respiratory therapist ATT Provider Role: Attending physician Method of Communication: Secure chat Response: Waiting for response Notification Date: 01/20/25 Notification Time: 0620 Reason for Communication: Critical lab value (Hgb 6.6) Provider Role: Attending physician Method of Communication: Secure chat Response: Waiting for response Notification Time: 0620 Handoff complete and report given to Primary RN at 1320. Primary RN (First Initial, Last Name, Title): Bell Avalos RN Education Person Educated: Patient Knowledge Base: Substantial Barriers to Learning?: None Preferred method of Learning: Oral Topic(s): Access Care, Signs and Symptoms of Infection, Fluid Management, Procedural, and Diet Teaching Tools: Explanation Response to Education: Verbalized Understanding documented in this encounter [facility] 02-01-2025 Miscellaneous Notes Formattin g of this note might be different from the original. 7000 created in [facility] per [facility] request. Facility notified via [facility]. Authorization approved for the [facility] through 02/02/25, discharge orders placed, ROSENDO completed. Transportation placed and confirmed for today 02/01/25 at 330pm to the [facility], physician/patient/secretary administrative assistant/RN aware. [facility] tasked to send 7000 and DC summary. Hep B panels, 3 days of HD flowsheets, MAR and OPAT [facility] the [facility] Call placed to the [facility] to confirm able to still take patient today, they confirmed and are aware of transportation scheduled today 02/01/25 at 330pm. Problem: Pain - Adult Goal: Verbalizes/displays adequate comfort level or baseline comfort level Outcome: Progressing Problem: Discharge Planning Goal: Discharge to home or other facility with appropriate resources Outcome: Progressing Problem: Chronic Conditions and Co-morbidities Goal: Patient's chronic conditions and co-morbidity symptoms are monitored and maintained or improved Outcome: Progressing Problem: Knowledge Deficit Goal: Patient/family/caregiver demonstrates understanding of disease process, treatment plan, medications, and discharge instructions Outcome: Progressing Problem: Potential for Compromised Skin Integrity Goal: Skin Integrity is Maintained or Improved Outcome: Progressing Goal: Nutritional status is improving Outcome: Progressing Problem: Urinary Incontinence Goal: Perineal skin integrity is maintained or improved Outcome: Progressing Problem: Problem Interventions Goal: Nutrition Support Outcome: Progressing Updates placed to [facility] per [facility] request. Await review and response regarding ability to accept. TCC notified. Problem: Pain - Adult Goal: Verbalizes/displays adequate comfort level or baseline comfort level Outcome: Progressing Problem: Safety - Adult Goal: Free from fall injury Outcome: Progressing Problem: Discharge Planning Goal: Discharge to home or other facility with appropriate resources Outcome: Progressing Problem: Chronic Conditions and Co-morbidities Goal: Patient's chronic conditions and co-morbidity symptoms are monitored and maintained or improved Outcome: Progressing Problem: Knowledge Deficit Goal: Patient/family/caregiver demonstrates understanding of disease process, treatment plan, medications, and discharge instructions Outcome: Progressing Problem: Potential for Compromised Skin Integrity Goal: Skin Integrity is Maintained or Improved Outcome: Progressing Goal: Nutritional status is improving Outcome: Progressing Problem: Urinary Incontinence Goal: Perineal skin integrity is maintained or improved Outcome: Progressing Problem: Problem Interventions Goal: Nutrition Support Outcome: Progressing Message sent to [facility] to start [facility] auth for [facility]. Problem: Pain - Adult Goal: Verbalizes/displays adequate comfort level or baseline comfort level Outcome: Progressing Problem: Safety - Adult Goal: Free from fall injury Outcome: Progressing Problem: Discharge Planning Goal: Discharge to home or other facility with appropriate resources Outcome: Progressing Problem: Chronic Conditions and Co-morbidities Goal: Patient's chronic conditions and co-morbidity symptoms are monitored and maintained or improved Outcome: Progressing Problem: Knowledge Deficit Goal: Patient/family/caregiver demonstrates understanding of disease process, treatment plan, medications, and discharge instructions Outcome: Progressing Problem: Potential for Compromised Skin Integrity Goal: Skin Integrity is Maintained or Improved Outcome: Progressing Problem: Potential for Compromised Skin Integrity Goal: Nutritional status is improving Outcome: Progressing Chart reviewed. Sacral osteo, on IV abx until 02/13, tunneled line ordered but not placed yet. +wound vac. HD normally on MWF schedule, Nephrology following, adjusting schedule as needed. PT and OT asked to see today in order to start auth to return to [facility] per previous TCC note of plan. Updates sent to the facility yesterday. Attending charting SNF 01/30-01/31. Will follow. Problem: Pain - Adult Goal: Verbalizes/displays adequate comfort level or baseline comfort level Outcome: Progressing Problem: Safety - Adult Goal: Free from fall injury Outcome: Progressing Problem: Pain - Adult Goal: Verbalizes/displays adequate comfort level or baseline comfort level Outcome: Progressing Problem: Safety - Adult Goal: Free from fall injury Outcome: Progressing Problem: Potential for Compromised Skin Integrity Goal: Skin Integrity is Maintained or Improved Outcome: Progressing Updates placed to [facility] per TCC request. Await review and response regarding ability to accept. TCC notified. Electronically signed by [facility] Sabino Rodrigues Tasked [facility] to send updates to [facility], per their request. Warfarin bridging per MD notes, patient will need NEW auth for return to [facility]. Problem: Pain - Adult Goal: Verbalizes/displays adequate comfort level or baseline comfort level Outcome: Progressing Problem: Safety - Adult Goal: Free from fall injury Outcome: Progressing Problem: Discharge Planning Goal: Discharge to home or other facility with appropriate resources Outcome: Progressing Problem: Chronic Conditions and Co-morbidities Goal: Patient's chronic conditions and co-morbidity symptoms are monitored and maintained or improved Outcome: Progressing Problem: Knowledge Deficit Goal: Patient/family/caregiver demonstrates understanding of disease process, treatment plan, medications, and discharge instructions Outcome: Progressing Problem: Potential for Compromised Skin Integrity Goal: Skin Integrity is Maintained or Improved Outcome: Progressing Goal: Nutritional status is improving Outcome: Progressing Problem: Urinary Incontinence Goal: Perineal skin integrity is maintained or improved Outcome: Progressing Problem: Problem Interventions Goal: Nutrition Support Outcome: Progressing Problem: Pain - Adult Goal: Verbalizes/displays adequate comfort level or baseline comfort level 01/28/2025354 by Jun Schafer RN Outcome: Progressing 01/28/2025236 by Jun Schafer RN Outcome: Progressing Problem: Safety - Adult Goal: Free from fall injury 01/28/2025354 by Jun Schafer RN Outcome: Progressing 01/28/2025236 by Jun Schafer RN Outcome: Progressing Problem: Discharge Planning Goal: Discharge to home or other facility with appropriate resources 01/28/2025354 by Jun Schafer RN Outcome: Progressing 01/28/2025236 by Jun Schafer RN Outcome: Progressing Problem: Chronic Conditions and Co-morbidities Goal: Patient's chronic conditions and co-morbidity symptoms are monitored and maintained or improved 01/28/2025354 by Jun Schafer RN Outcome: Progressing 01/28/2025236 by Jun Schafer RN Outcome: Progressing Problem: Knowledge Deficit Goal: Patient/family/caregiver demonstrates understanding of disease process, treatment plan, medications, and discharge instructions 01/28/2025354 by Jun Schafer RN Outcome: Progressing 01/28/2025236 by Jun Schafer RN Outcome: Progressing Problem: Potential for Compromised Skin Integrity Goal: Skin Integrity is Maintained or Improved 01/28/2025354 by Jun Schafer RN Outcome: Progressing 01/28/2025236 by Jun Schafer RN Outcome: Progressing Goal: Nutritional status is improving 01/28/2025354 by Jun Schafer RN Outcome: Progressing 01/28/2025236 by Jun Schafer RN Outcome: Progressing Problem: Urinary Incontinence Goal: Perineal skin integrity is maintained or improved 01/28/2025354 by Jun Schafer RN Outcome: Progressing 01/28/2025236 by Jun Schafer RN Outcome: Progressing Problem: Problem Interventions Goal: Nutrition Support 01/28/2025354 by Jun Schafer RN Outcome: Progressing 01/28/2025236 by Jun Schafer RN Outcome: Progressing Problem: Pain - Adult Goal: Verbalizes/displays adequate comfort level or baseline comfort level Outcome: Progressing Problem: Safety - Adult Goal: Free from fall injury Outcome: Progressing Problem: Discharge Planning Goal: Discharge to home or other facility with appropriate resources Outcome: Progressing Problem: Chronic Conditions and Co-morbidities Goal: Patient's chronic conditions and co-morbidity symptoms are monitored and maintained or improved Outcome: Progressing Problem: Knowledge Deficit Goal: Patient/family/caregiver demonstrates understanding of disease process, treatment plan, medications, and discharge instructions Outcome: Progressing Problem: Potential for Compromised Skin Integrity Goal: Skin Integrity is Maintained or Improved Outcome: Progressing Goal: Nutritional status is improving Outcome: Progressing Problem: Urinary Incontinence Goal: Perineal skin integrity is maintained or improved Outcome: Progressing Problem: Problem Interventions Goal: Nutrition Support Outcome: Progressing Problem: Pain - Adult Goal: Verbalizes/displays adequate comfort level or baseline comfort level Outcome: Progressing Problem: Safety - Adult Goal: Free from fall injury Outcome: Progressing Problem: Discharge Planning Goal: Discharge to home or other facility with appropriate resources Outcome: Progressing Problem: Chronic Conditions and Co-morbidities Goal: Patient's chronic conditions and co-morbidity symptoms are monitored and maintained or improved Outcome: Progressing Problem: Knowledge Deficit Goal: Patient/family/caregiver demonstrates understanding of disease process, treatment plan, medications, and discharge instructions Outcome: Progressing Problem: Potential for Compromised Skin Integrity Goal: Skin Integrity is Maintained or Improved Outcome: Progressing Problem: Potential for Compromised Skin Integrity Goal: Nutritional status is improving Outcome: Progressing Problem: Urinary Incontinence Goal: Perineal skin integrity is maintained or improved Outcome: Progressing Problem: Problem Interventions Goal: Nutrition Support Outcome: Progressing Problem: Pain - Adult Goal: Verbalizes/displays adequate comfort level or baseline comfort level Outcome: Progressing Flowsheets (Taken 01/26/2025 0800) Verbalizes/displays adequate comfort level or baseline comfort level: Encourage patient to monitor pain and request assistance Assess pain using appropriate pain scale Administer analgesics based on type and severity of pain and evaluate response Implement non-pharmacological measures as appropriate and evaluate response Consider cultural and social influences on pain and pain management Notify Licensed Independent Practitioner if interventions unsuccessful or patient reports new pain Problem: Safety - Adult Goal: Free from fall injury Outcome: Progressing Flowsheets (Taken 01/26/2025 0800) Free from fall injury: Instruct family/caregiver on patient safety Based on caregiver fall risk screen, instruct family/caregiver to ask for assistance with transferring infant if caregiver noted to have fall risk factors Problem: Discharge Planning Goal: Discharge to home or other facility with appropriate resources Outcome: Progressing Problem: Chronic Conditions and Co-morbidities Goal: Patient's chronic conditions and co-morbidity symptoms are monitored and maintained or improved Outcome: Progressing Flowsheets (Taken 01/26/2025 0800) Care Plan - Patient's Chronic Conditions and Co-Morbidity Symptoms are Monitored and Maintained or Improved: Monitor and assess patient's chronic conditions and comorbid symptoms for stability, deterioration, or improvement Collaborate with multidisciplinary team to address chronic and comorbid conditions and prevent exacerbation or deterioration Update acute care plan with appropriate goals if chronic or comorbid symptoms are exacerbated and prevent overall improvement and discharge Problem: Knowledge Deficit Goal: Patient/family/caregiver demonstrates understanding of disease process, treatment plan, medications, and discharge instructions Outcome: Progressing Problem: Potential for Compromised Skin Integrity Goal: Skin Integrity is Maintained or Improved Outcome: Progressing Goal: Nutritional status is improving Outcome: Progressing Problem: Urinary Incontinence Goal: Perineal skin integrity is maintained or improved Outcome: Progressing Problem: Problem Interventions Goal: Nutrition Support Outcome: Progressing Dialysis placed to SNF - [facility] via [facility] per TCC request. Care Management Progress Note PCU transfer pending. Received one unit PRBC this AM for low Hgb. HD today. Heparin drip ongoing. IVAB (plan for 6 week course). Wound vac to sacral wound. Room Air. Dysphagia diet; pureed. DC plan - [facility]. Facility updated via [facility]. TRANSIT MECHANIC asked to send dialysis note per their request. CM to continue following for DC planning Length of Stay (Days): 5 GMLOS: 4.5 Problem: Pain - Adult Goal: Verbalizes/displays adequate comfort level or baseline comfort level Outcome: Progressing Flowsheets (Taken 01/25/2025799) Verbalizes/displays adequate comfort level or baseline comfort level: Encourage patient to monitor pain and request assistance Assess pain using appropriate pain scale Administer analgesics based on type and severity of pain and evaluate response Implement non-pharmacological measures as appropriate and evaluate response Consider cultural and social influences on pain and pain management Notify Licensed Independent Practitioner if interventions unsuccessful or patient reports new pain Problem: Safety - Adult Goal: Free from fall injury Outcome: Progressing Flowsheets (Taken 01/25/2025799) Free from fall injury: Instruct family/caregiver on patient safety Based on caregiver fall risk screen, instruct family/caregiver to ask for assistance with transferring infant if caregiver noted to have fall risk factors Problem: Discharge Planning Goal: Discharge to home or other facility with appropriate resources Outcome: Progressing Problem: Chronic Conditions and Co-morbidities Goal: Patient's chronic conditions and co-morbidity symptoms are monitored and maintained or improved Outcome: Progressing Flowsheets (Taken 01/25/2025799) Care Plan - Patient's Chronic Conditions and Co-Morbidity Symptoms are Monitored and Maintained or Improved: Monitor and assess patient's chronic conditions and comorbid symptoms for stability, deterioration, or improvement Collaborate with multidisciplinary team to address chronic and comorbid conditions and prevent exacerbation or deterioration Update acute care plan with appropriate goals if chronic or comorbid symptoms are exacerbated and prevent overall improvement and discharge Problem: Knowledge Deficit Goal: Patient/family/caregiver demonstrates understanding of disease process, treatment plan, medications, and discharge instructions Outcome: Progressing Problem: Potential for Compromised Skin Integrity Goal: Skin Integrity is Maintained or Improved Outcome: Progressing Goal: Nutritional status is improving Outcome: Progressing Problem: Urinary Incontinence Goal: Perineal skin integrity is maintained or improved Outcome: Progressing Problem: Problem Interventions Goal: Nutrition Support Outcome: Progressing ABCDEF Bundle Assessment A=Assess, Prevent and Manage Pain Most Recent Pain Scale: 0-10 Numeric Pain Rating: Pain Score: Patient resting with eyes closed and respirations are greater than 12 Ventilation Status: CPOT Score: Pain Interventions: Pain controlled. No new analgesics ordered Scheduled Medications: ampicillin-sulbactam, 3,000 mg, IntraVENous, q12h collagenase, , Topical, Daily ipratropium-albuterol, 3 mL, Nebulization, TID Lidocaine, 1 patch, Topical, Daily [Held by provider] metoprolol tartrate, 25 mg, Per G Tube, BID [Held by provider] midodrine, 15 mg, Per G Tube, q6h warfarin, 0.5 mg, Oral, Once PRN Medications: acetaminophen, 1,000 mg, Oral, q8h PRN, 1,000 mg at 01/23/25 1134 collagenase, , Topical, PRN, Given at 01/21/25 1339 dextrose, 100 mL/hr, IntraVENous, PRN, 100 mL/hr at 01/21/25 0636 dextrose, 12.5 g, IntraVENous, PRN, 12.5 g at 01/21/25 0616 glucagon (rDNA), 1 mg, IntraMUSCular, PRN glucose, 15 g, Oral, PRN melatonin, 5 mg, Per G Tube, Nightly PRN naloxone, 0.4 mg, IntraVENous, q5 min PRN oxyCODONE, 5 mg, Oral, q6h PRN, 5 mg at 01/25/25 0303 Or oxyCODONE, 10 mg, Oral, q6h PRN, 10 mg at 01/25/25 0941 prochlorperazine, 5 mg, IntraVENous, q6h PRN sodium chloride, 250 mL/hr, IntraVENous, PRN sodium chloride, 250 mL/hr, IntraVENous, PRN sodium chloride, 250 mL/hr, IntraVENous, PRN sodium chloride, 250 mL/hr, IntraVENous, PRN B=Both Spontaneous Awakening and Breathing Trials Safety Screen SAT: SAT Outcome: C=Choice of Sedation RASS: Alert & Calm-Spontaneously pays attention to caregiver Continuous Infusions: heparin, 5-30 Units/kg/hr, Last Rate: 11 Units/kg/hr (01/25/25 1001) sodium chloride, 20 mL/hr, Last Rate: 20 mL/hr (01/23/25 1648) D=Delirium Overall CAM-ICU: Negative E=Exercise and Early Mobility Early Mobility/Exercise Safety Screen: Activity: Bed mobility -HLM Score: Bed activity LDAs Peripheral IV 01/19/25 Right Forearm (Active) Number of days: 4 Peripheral IV 01/23/25 Anterior;Distal;Right Forearm (Active) Number of days: 0 Enterostomy Gastric 20 Fr. LUQ (Active) Number of days: 70 - Central Line indicated: N/A - Payne indicated: N/A OPAT placed to [facility] via [facility] per TCC request. 01/25/25 1047 Rapid Rounds Attendance Licensed Physical Therapy Assistant Planned Discharge Disposition SNF Today we still await Administering IV medications;Fitness Professional recommendations (comment);Clinical stability;Symptomatic control;Post-discharge arrangement completion (comment) Patient remains on MICU. S/P colonoscopy 01/24-negative for active bleeding. Heparin drip resumed post procedure. Wound vac to sacral wound; IVAB till 02/13; OPAT under chart review > media. Plan for MBSS. Room Air. DC plan - [facility] when medically appropriate. CM will continue to follow. Problem: Pain - Adult Goal: Verbalizes/displays adequate comfort level or baseline comfort level Outcome: Progressing Problem: Safety - Adult Goal: Free from fall injury Outcome: Progressing Problem: Discharge Planning Goal: Discharge to home or other facility with appropriate resources Outcome: Progressing Problem: Chronic Conditions and Co-morbidities Goal: Patient's chronic conditions and co-morbidity symptoms are monitored and maintained or improved Outcome: Progressing Problem: Knowledge Deficit Goal: Patient/family/caregiver demonstrates understanding of disease process, treatment plan, medications, and discharge instructions Outcome: Progressing Problem: Potential for Compromised Skin Integrity Goal: Skin Integrity is Maintained or Improved Outcome: Progressing Goal: Nutritional status is improving Outcome: Progressing Problem: Urinary Incontinence Goal: Perineal skin integrity is maintained or improved Outcome: Progressing Problem: Problem Interventions Goal: Nutrition Support Outcome: Progressing Problem: Pain - Adult Goal: Verbalizes/displays adequate comfort level or baseline comfort level Outcome: Progressing Problem: Safety - Adult Goal: Free from fall injury Outcome: Progressing Problem: Discharge Planning Goal: Discharge to home or other facility with appropriate resources Outcome: Progressing Problem: Chronic Conditions and Co-morbidities Goal: Patient's chronic conditions and co-morbidity symptoms are monitored and maintained or improved Outcome: Progressing Problem: Knowledge Deficit Goal: Patient/family/caregiver demonstrates understanding of disease process, treatment plan, medications, and discharge instructions Outcome: Progressing Problem: Potential for Compromised Skin Integrity Goal: Skin Integrity is Maintained or Improved Outcome: Progressing Goal: Nutritional status is improving Outcome: Progressing Problem: Urinary Incontinence Goal: Perineal skin integrity is maintained or improved Outcome: Progressing Problem: Problem Interventions Goal: Nutrition Support [facility]come: [facility] Name: Jun Snyder Procedure Date: 01/24/2025 12:37 PM Gender: Male Date of : 1965 Age: 59 Admit Type: Inpatient Note Status: Finalized Endoscopist: Chadd Davis MD, [id number] Procedure: Colonoscopy Indications: Evaluation of unexplained GI bleeding presenting with Hematochezia Findings: The digital rectal exam was normal. A few diverticula were found in the sigmoid colon. Internal hemorrhoids were found during retroflexion. The hemorrhoids were medium-sized and Grade I (internal hemorrhoids that do not prolapse). There is no endoscopic evidence of bleeding or inflammation in the entire colon (within limitations of bowel preparation) Brown liquid stool throughout colon. No fresh or old blood was seen throughout the examination. Impression: - Preparation of the colon was fair. - Diverticulosis in the sigmoid colon. - Internal hemorrhoids. - No specimens collected. Recommendation: - Patient has a contact number available for emergencies. The signs and symptoms of potential delayed complications were discussed with the patient. Return to normal activities tomorrow. Written discharge instructions were provided to the patient. - Continue present medications. - Resume previous diet. - Return patient to [facility] for ongoing care. Continue supportive care in ICU. Monitor for recurrence of bleeding when anticoagulation is restarted. - GI inpatient service will follow peripherally and sign off at this time, please call if new issues/questions arise. - The findings and recommendations were discussed with the referring physician/ICU at time of procedure. Medicines: Monitored Anesthesia Care Procedure: Pre-Anesthesia Assessment: - Prior to the procedure, a History and Physical was performed, and patient medications and allergies were reviewed. The patient is competent. The risks and benefits of the procedure and the sedation options and risks were discussed with the patient. All questions were answered and informed consent was obtained. Patient identification and proposed procedure were verified by the physician, the nurse and the lead injection mold technician in the pre-procedure area in the procedure room. Mental Status Examination: alert and oriented. Respiratory Examination: clear to auscultation. CV Examination: normal. Prophylactic Antibiotics: The patient does not require prophylactic antibiotics. Prior Anticoagulants: The patient has taken heparin. ASA Grade Assessment: III - A patient with severe systemic disease. After reviewing the risks and benefits, the patient was deemed in satisfactory condition to undergo the procedure. The anesthesia plan was to use monitored anesthesia care (MAC). Immediately prior to administration of medications, the patient was re-assessed for adequacy to receive sedatives. The heart rate, respiratory rate, oxygen saturations, blood pressure, adequacy of pulmonary ventilation, and response to care were monitored throughout the procedure. The physical status of the patient was re-assessed after the procedure. After I obtained informed consent, the scope was passed under direct vision. Throughout the procedure, the patient's blood pressure, pulse, and oxygen saturations were monitored continuously. The Colonoscope was introduced through the anus and advanced to the cecum, identified by appendiceal orifice and ileocecal valve. The colonoscopy was performed with ease. The patient tolerated the procedure well. The quality of the bowel preparation was fair. The ileocecal valve, appendiceal orifice, and rectum were photographed. Complications: No immediate complications. Comorbidities: Chronic anticoagulant use Procedure Code(s): --- Professional --- 77340, Colonoscopy, flexible; diagnostic, including collection of specimen(s) by brushing or washing, when performed (separate procedure) --- Technical --- 47218, Colonoscopy, flexible; diagnostic, including collection of specimen(s) by brushing or washing, when performed (separate procedure) Diagnosis Code(s): --- Professional --- K64.0, First degree hemorrhoids K92.1, Melena (includes Hematochezia) Z79.01, rn long term care (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 anticoagulants K57.30, Diverticulosis of large intestine without perforation or abscess without bleeding --- Technical --- K64.0, First degree hemorrhoids K92.1, Melena (includes Hematochezia) Z79.01, rn long term care (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 anticoagulants K57.30, Diverticulosis of large intestine without perforation or abscess without bleeding CPT copyright 2021 [employer]. All rights reserved. The codes documented in this report are preliminary and upon boiler water tester review may be revised to meet current compliance requirements. Attending Participation: I personally performed the entire procedure. Chadd Davis MD 01/24/2025 1:38:14 PM Number of Addenda: 0 Note Initiated On: 01/24/2025 12:37 PM ABCDEF Bundle Assessment A=Assess, Prevent and Manage Pain Most Recent Pain Scale: No/denies pain Numeric Pain Rating: Pain Score: 9 Ventilation Status: CPOT Score: Pain Interventions: Pain controlled. No new analgesics ordered Scheduled Medications: ampicillin-sulbactam, 3,000 mg, IntraVENous, q12h collagenase, , Topical, Daily ipratropium-albuterol, 3 mL, Nebulization, TID Lidocaine, 1 patch, Topical, Daily [Held by provider] metoprolol tartrate, 25 mg, Per G Tube, BID [Held by provider] midodrine, 15 mg, Per G Tube, q6h PRN Medications: acetaminophen, 1,000 mg, Oral, q8h PRN, 1,000 mg at 01/23/25 1134 collagenase, , Topical, PRN, Given at 01/21/25 1339 dextrose, 100 mL/hr, IntraVENous, PRN, 100 mL/hr at 01/21/25 0636 dextrose, 12.5 g, IntraVENous, PRN, 12.5 g at 01/21/25 0616 glucagon (rDNA), 1 mg, IntraMUSCular, PRN glucose, 15 g, Oral, PRN melatonin, 5 mg, Per G Tube, Nightly PRN naloxone, 0.4 mg, IntraVENous, q5 min PRN oxyCODONE, 5 mg, Oral, q6h PRN Or oxyCODONE, 10 mg, Oral, q6h PRN, 10 mg at 01/23/25 2040 prochlorperazine, 5 mg, IntraVENous, q6h PRN sodium chloride, 250 mL/hr, IntraVENous, PRN sodium chloride, 250 mL/hr, IntraVENous, PRN B=Both Spontaneous Awakening and Breathing Trials Safety Screen SAT: SAT Outcome: C=Choice of Sedation RASS: Restless-Anxious, apprehensive, movements not aggressive Continuous Infusions: sodium chloride, 20 mL/hr, Last Rate: 20 mL/hr (01/23/25 1648) D=Delirium Overall CAM-ICU: Negative E=Exercise and Early Mobility Early Mobility/Exercise Safety Screen: Activity: Bed mobility -[facility] Score: Lying in bed LDAs Peripheral IV 01/19/25 Right Forearm (Active) Number of days: 4 Peripheral IV 01/23/25 Anterior;Distal;Right Forearm (Active) Number of days: 0 Enterostomy Gastric 20 Fr. LUQ (Active) Number of days: 70 - Central Line indicated: N/A - Payne indicated: N/A Problem: Pain - Adult Goal: Verbalizes/displays adequate comfort level or baseline comfort level Outcome: Progressing Flowsheets (Taken 01/24/2025 0707) Verbalizes/displays adequate comfort level or baseline comfort level: Encourage patient to monitor pain and request assistance Assess pain using appropriate pain scale Administer analgesics based on type and severity of pain and evaluate response Problem: Chronic Conditions and Co-morbidities Goal: Patient's chronic conditions and co-morbidity symptoms are monitored and maintained or improved Outcome: Progressing Flowsheets (Taken 01/24/2025 0707) Care Plan - Patient's Chronic Conditions and Co-Morbidity Symptoms are Monitored and Maintained or Improved: Monitor and assess patient's chronic conditions and comorbid symptoms for stability, deterioration, or improvement Collaborate with multidisciplinary team to address chronic and comorbid conditions and prevent exacerbation or deterioration Update acute care plan with appropriate goals if chronic or comorbid symptoms are exacerbated and prevent overall improvement and discharge Palliative Care Interdisciplinary Team Note: Diagnosis: Principal Problem: Complication of tracheostomy ([facility] ([facility]) Active Problems: Severe malnutrition ([facility] ([facility]) Chief Complaint: Jun Snyder is a 59 y.o. male with chief complaint of: trach complications, OM from decub Reason Palliative Following:Goals of Care Plan:Ongoing Goals of Care Discussions and Support Code Status: Full Code Medications: Palliative Care Not Managing Any Medications Nursing: Jail Care and Skin Integrity Social Work: Palliative SW Following and HCPOA HCPOA completed Spiritual Care: No Unmet Needs Pharmacy: No Unmet Needs Psychology/Psychiatry: No Unmet Needs Problem: Pain - Adult Goal: Verbalizes/displays adequate comfort level or baseline comfort level Outcome: Progressing Problem: Safety - Adult Goal: Free from fall injury Outcome: Progressing Problem: Discharge Planning Goal: Discharge to home or other facility with appropriate resources Outcome: Progressing Problem: Chronic Conditions and Co-morbidities Goal: Patient's chronic conditions and co-morbidity symptoms are monitored and maintained or improved Outcome: Progressing Problem: Knowledge Deficit Goal: Patient/family/caregiver demonstrates understanding of disease process, treatment plan, medications, and discharge instructions Outcome: Progressing Problem: Problem Interventions Goal: Nutrition Support Outcome: Progressing Palliative SW asked by Palliative Physician to assist patient with completing HCPOA. Palliative SW discussed patient with Floor CM Codi. Patient appropriate to complete HCPOA. Palliative SW and CM met with patient at bedside. Palliative SW introduced self, reviewed role on the palliative care team, reviewed Health Care Power of Ampoule Inspector (HCPOA) with patient. Patient agreeable to complete HCPOA chose to name ko Snyder as primary agent and named his sig other Toma Mcneil as first alternate. Patient did not name any additional alternates. Paperwork signed and witnessed. Originals and copies returned to patient and copies placed on the chart. Copies sent to HIM via tube system to be urgently scanned into the electronic chart. Care Management Progress Note Patient now IP status. Transferred to floor then back to ICU over the weekend due to concern for GIB. GI consulted. S/P EGD 01/21; non bleeding ulcer noted. Elevated INR; [facility] managing coumadin; FFP transfusion today. HD today. Remains de-cannulated from trach on RA. Has PEG. IVAB; will need 6 weeks course (r/t sacral wound and necrotic toes) . Surgery evaluated sacral wound for possible I&D; no acute surgical intervention at this time; wound vac recommended. Patient on envella bed. HCPOA completed with CM and SW; ko Nelson primary agent and laurence Chua SARAH, secondary agent. DC plan - return to [facility]. CM will continue to follow Length of Stay (Days): 1 GMLOS: 4.5 Images from the original note were not included. [facility] Palliative Care Transitions of Care Note Jun Snyder : 1965 ADMIT DATE: 01/19/2025 DISCHARGE DATE: TBD PRIMARY CARE PHYSICIAN: Leilani Troncoso CODE STATUS: Full Code DISCHARGE DIAGNOSES: Principal Problem: Complication of tracheostomy (CMS/HCC) (HCC) Active Problems: Severe malnutrition (CMS/HCC) (HCC) BRBPR (bright red blood per rectum) HOSPITAL COURSE: Mr. Jun Snyder is a 59 year old male with a complicated history. On chart review: 10/12/24: s/p AVR (23mm [facility] [employer]), YG with Dr. Montemayor 10/14/24: s/p PEA Arrest Hypovolemic Shock Code Intubated, EGD, GDA Embolization D1 10/15/24: L subclavian transvenous pacer placement 10/18/24: Extubated; reintubated 10/19/24 10/24/24: Extubated 11/01/24: Code Blue PEA arrest, re intubated started on CRRT 11/14/24: s/p Trach and Peg with Dr. Ramirez 11/16/24: OR for diagnostic laparoscopy, EGD, abhishek gastrostomy tube placement -- noted to have bile peritonitis 11/28/24: transferred to [facility] He ended up developing sacral ulcer and osteomyelitis at [facility] He then ended up dislodging his tracheostomy, and was brought to [facility] ED for further care. Palliative care consulted for goals of care. Goals of care - Patient has capacity to make medical decisions - legal surrogate decision maker VIRGINIA Nelson, 1st alternate is significant other Toma - goals of care include: 1) to continue current management, continue with aggressive medical therapy, procedures, antibiotics at this time - planning to [facility] - will forward chart to Palliative RN Coordinator to assist with possible palliative care follow up if facility is able Bright red blood per rectum vs bleeding sacral wound Chronic Anemia - on coumadin, INR supratherapeutic, coumadin held - GI consulted - protonix - CTA negative for source of bleeding, EGD done 01/21 - nonbleeding ulcer - had colonoscopy 01/24 - diverticulosis and internal hemorrhoids - h/h stable Left Foot Ulcers Sacral Osteomyelitis - currently on antibiotics at SNF for 6 weeks (through 02/13/25) - sacral wound cx: ASEC, Clostridium - ID following - now with wound vac - oxycodone 5-10 mg q 6 hr prn pain - recommend any manipulation of wound, trying to give dose 1 hour prior End Stage Renal Disease - initiated after PEA in 09/2024 leading to needing CRRT - iHD M/W/F History of Aortic Stenosis s/p AV replacement Supratherapeutic INR - [facility] [employer] Teacher valve in 09/2024 - coumadin held due to bleeding and supratherapeutic levels Chronic respiratory failure s/p tracheostomy Tracheostomy dislodgement - has been saturating well without trach on RA so has not been replaced FOLLOW UP TESTING, PENDING RESULTS OR REFERRALS AT TRANSITIONAL CARE VISIT: No DISPOSITION: Skilled Rehab Facility FACILITY/HOME CARE AGENCY NAME: [facility] Follow up with Palliative Care on patient to call. Reason for Outpatient/Home/ECF Palliative Care follow-up: Continue goals of care discussion SIGNED: Tex Cotto MD 01/25/2025, 11:45 AM Problem: Pain - Adult Goal: Verbalizes/displays adequate comfort level or baseline comfort level Outcome: Progressing Flowsheets (Taken 01/22/2025 0538) Verbalizes/displays adequate comfort level or baseline comfort level: Encourage patient to monitor pain and request assistance Assess pain using appropriate pain scale Administer analgesics based on type and severity of pain and evaluate response Problem: Safety - Adult Goal: Free from fall injury Outcome: Progressing Flowsheets (Taken 01/19/20251999 by Cherelle Wilkins RN) Free from fall injury: Instruct family/caregiver on patient safety Images from the original note were not included. Conscious Sedation Procedure Note Sedation Goal: deep Procedure: EGD Proceduralist: Dr. Alba Indication: GIB Time Out: Completed immediately prior to the start of the procedure which included verification of the correct patient, correct site and agreement on the procedure to be done. Consent: The indications, risks, benefits, alternatives to the procedure were explained to the patient/surrogate decision maker and their questions answered. Consent was obtained to proceed with the procedure. Pre-Sedation Assessment Pre-Sedation Vital Signs: Vital signs were reviewed and were stable prior the procedure (see flowsheet) Pre-Sedation Exam: Assessment: I have reviewed the patient's history and review of systems. Pulmonary: clear to auscultation Cardiovascular: within normal limits ENT: no obvious abnormalities noted during assessment Mallampati: Mallampati Class I - (soft palate, fauces, uvula & anterior/posterior tonsillar pillars are visible) ASA Classification: Class 3 - A patient with severe systemic disease that limits activity but is not incapacitating History of Anesthesia Complications: none Immediate Pre-Sedation Assessment There have been no changes in the patient's status since the initial assessment. Intra-Sedation Assessment Monitoring and Safety: The patient was placed on a bobbin cleaner and vital signs, pulse oximetry, and level of consciousness were continuously evaluated throughout the procedure. The patient was closely monitored until recovery from the medications was complete and the patient had returned to baseline status. Respiratory therapy was on standby at all times during the procedure. Medications Used: 100 mg Ketamine Post-Sedation Assessment Post-Sedation Vital Signs: Vital signs were reviewed and were stable after the procedure (see flowsheet) Post-Sedation Exam: Pulmonary: clear to auscultation Cardiovascular: within normal limits Start time: 1015 Stop time: 1030 Complications: none apparent Sedation Provider: I personally performed the sedation documented as signed by this procedure note. [facility]: Jun Snyder Procedure Date: 01/21/2025 9:59 AM Gender: Male Date of : 1965 Age: 59 Admit Type: Inpatient Note Status: Finalized Endoscopist: ELDON Alba MD, [id number] Procedure: Upper GI endoscopy Indications: Acute post hemorrhagic anemia Findings: A medium-sized hiatal hernia was present. There was evidence of an intact gastrostomy with a patent G-tube present in the gastric body. One non-bleeding superficial duodenal ulcer with no stigmata of bleeding was found in the duodenal bulb. The lesion was 20 mm in largest dimension. Previously placed clip noted. No bleeding. Impression: - Medium-sized hiatal hernia. - Intact gastrostomy with a patent G-tube present. - Non-bleeding duodenal ulcer with no stigmata of bleeding. - No bleeding. Recommendation: - Consult surgery to pack the wound - if still has any bleeding and is actually rectal bleed and not sitting in pool of blood from wound bleeding, can consider a colonoscopy, his CTA however was negative. - Continue present medications. - Resume previous diet. - Return to referring physician as previously scheduled. - May resume coumadin if no evidence of GI bleeding. - PPI daily for gastric ulcer. - Call for questions. Medicines: Monitored Anesthesia Care Procedure: Pre-Anesthesia Assessment: - Prior to the procedure, a History and Physical was performed, and patient medications and allergies were reviewed. The patient is competent. The risks and benefits of the procedure and the sedation options and risks were discussed with the patient. All questions were answered and informed consent was obtained. Patient identification and proposed procedure were verified by the physician, the nurse and the lead injection mold technician in the pre-procedure area in the procedure room. Mental Status Examination: alert and oriented. Airway Examination: normal oropharyngeal airway and neck mobility. CV Examination: normal. Prophylactic Antibiotics: The patient does not require prophylactic antibiotics. Prior Anticoagulants: The patient has taken no anticoagulant or antiplatelet agents. ASA Grade Assessment: III - A patient with severe systemic disease. After reviewing the risks and benefits, the patient was deemed in satisfactory condition to undergo the procedure. The anesthesia plan was to use monitored anesthesia care (MAC). Immediately prior to administration of medications, the patient was re-assessed for adequacy to receive sedatives. The heart rate, respiratory rate, oxygen saturations, blood pressure, adequacy of pulmonary ventilation, and response to care were monitored throughout the procedure. The physical status of the patient was re-assessed after the procedure. - Prior Aspirin/ NSAID therapy: The patient has taken no aspirin or NSAID medications. After obtaining informed consent, the endoscope was passed under direct vision. Throughout the procedure, the patient's blood pressure, pulse, and oxygen saturations were monitored continuously. The Endoscope was introduced through the mouth, and advanced to the second part of duodenum. The upper GI endoscopy was accomplished with ease. The patient tolerated the procedure well. Complications: No immediate complications. Estimated blood loss: None. Procedure Code(s): --- Professional --- 56743, Esophagogastroduodenoscopy, flexible, transoral; diagnostic, including collection of specimen(s) by brushing or washing, when performed (separate procedure) --- Technical --- 07440, Esophagogastroduodenoscopy, flexible, transoral; diagnostic, including collection of specimen(s) by brushing or washing, when performed (separate procedure) Diagnosis Code(s): --- Professional --- K44.9, Diaphragmatic hernia without obstruction or gangrene Z93.1, Gastrostomy status K26.9, Duodenal ulcer, unspecified as acute or chronic, without hemorrhage or perforation D62, Acute posthemorrhagic anemia --- Technical --- K44.9, Diaphragmatic hernia without obstruction or gangrene Z93.1, Gastrostomy status K26.9, Duodenal ulcer, unspecified as acute or chronic, without hemorrhage or perforation D62, Acute posthemorrhagic anemia CPT copyright 2021 [employer]. All rights reserved. The codes documented in this report are preliminary and upon boiler water tester review may be revised to meet current compliance requirements. Attending Participation: I personally performed the entire procedure. ELDON Alba MD 01/21/2025 10:29:25 AM This report has been signed electronically. Number of Addenda: 0 Note Initiated On: 01/21/2025 9:59 AM Problem: Pain - Adult Goal: Verbalizes/displays adequate comfort level or baseline comfort level Outcome: Not Progressing Problem: Discharge Planning Goal: Discharge to home or other facility with appropriate resources Outcome: Not Progressing Problem: Chronic Conditions and Co-morbidities Goal: Patient's chronic conditions and co-morbidity symptoms are monitored and maintained or improved Outcome: Not Progressing Problem: Knowledge Deficit Goal: Patient/family/caregiver demonstrates understanding of disease process, treatment plan, medications, and discharge instructions Outcome: Not Progressing Problem: Potential for Compromised Skin Integrity Goal: Skin Integrity is Maintained or Improved Outcome: Not Progressing Goal: Nutritional status is improving Outcome: Not Progressing Problem: Urinary Incontinence Goal: Perineal skin integrity is maintained or improved Outcome: Not Progressing Problem: Problem Interventions Goal: Nutrition Support Outcome: Not Progressing Problem: Pain - Adult Goal: Verbalizes/displays adequate comfort level or baseline comfort level Outcome: Progressing Problem: Safety - Adult Goal: Free from fall injury Outcome: Progressing Problem: Discharge Planning Goal: Discharge to home or other facility with appropriate resources Outcome: Progressing Problem: Chronic Conditions and Co-morbidities Goal: Patient's chronic conditions and co-morbidity symptoms are monitored and maintained or improved Outcome: Progressing Problem: Knowledge Deficit Goal: Patient/family/caregiver demonstrates understanding of disease process, treatment plan, medications, and discharge instructions Outcome: Progressing Problem: Potential for Compromised Skin Integrity Goal: Skin Integrity is Maintained or Improved Outcome: Progressing Goal: Nutritional status is improving Outcome: Progressing Problem: Urinary Incontinence Goal: Perineal skin integrity is maintained or improved Outcome: Progressing Problem: Problem Interventions Goal: Nutrition Support Outcome: Progressing General Surgery Brief Care Plan Patient was transferred over from [facility] after self-dislodged tracheostomy this morning around 0600. Consulted placed to general surgery for tracheostomy replacement around 1500. Patient was discussed at bedside with MICU team and attending at 1530. Patient is currently comfortably resting on room air saturating at 100% without acute respiratory distress. Per MICU, patient has been at facility at [facility] and has not required ventilatory support. At this current time, there is no indication for tracheostomy replacement. MICU plans to transfer patient back to facility tonight. Please feel free to discuss/re-consult general surgery should there be any concerns about his airway and need for redo tracheostomy. DW Dr. Trudi Bey MD General Surgery PGY-2 Pager [phone] Problem: Pain - Adult Goal: Verbalizes/displays adequate comfort level or baseline comfort level Outcome: Progressing Flowsheets (Taken 01/19/2025 0800) Verbalizes/displays adequate comfort level or baseline comfort level: Encourage patient to monitor pain and request assistance Assess pain using appropriate pain scale Administer analgesics based on type and severity of pain and evaluate response Problem: Safety - Adult Goal: Free from fall injury Outcome: Progressing Flowsheets (Taken 01/19/2025 0800) Free from fall injury: Instruct family/caregiver on patient safety Problem: Discharge Planning Goal: Discharge to home or other facility with appropriate resources Outcome: Progressing Problem: Chronic Conditions and Co-morbidities Goal: Patient's chronic conditions and co-morbidity symptoms are monitored and maintained or improved Outcome: Progressing Problem: Knowledge Deficit Goal: Patient/family/caregiver demonstrates understanding of disease process, treatment plan, medications, and discharge instructions Outcome: Progressing Problem: Potential for Compromised Skin Integrity Goal: Skin Integrity is Maintained or Improved Outcome: Progressing Goal: Nutritional status is improving Outcome: Progressing Problem: Urinary Incontinence Goal: Perineal skin integrity is maintained or improved Outcome: Progressing Problem: Problem Interventions Goal: Nutrition Support Outcome: Progressing Problem: Altered Nutrient Intake Goal: Nutrient intake appropriate for improving, restoring or maintaining nutritional needs Recent Flowsheet Documentation Taken 01/19/2025 0800 by Shannen Fields RN Nutrient intake appropriate for improving, restoring, or maintaining nutritional needs: Assess nutritional status and recommend course of action Monitor oral intake, labs, and treatment plans Return referral placed to [facility] via [facility] per TCC request. Await review and response regarding ability to accept. TCC notified. 01/19/25 1300 Rapid Rounds Attendance Licensed Physical Therapy Assistant Planned Discharge Disposition SNF Today we still await Clinical stability;Fitness Professional recommendations (comment);Symptomatic control;Post-discharge arrangement completion (comment) Patient admitted due to trach dislodgement. Patient was discharged from LTAC to the [facility]; there only a matter of hours per report from bedside RN when trach was dislodged and transported to ED. Unable to replace trach. Admitted to ICU for close monitoring. Patient is on RA at this time. NPO, has PEG, speech therapy following. C/S to nephrology, palliative and wound care. PT/OT ordered. Chart reviewed. PCP and insurance. Son Omar is primary NOK; other children defer decision making to him per EMR. CM met with Omar at bedside. He would like patient to return to [facility] SNF is able at [place]. Does not want patient to return to [facility] TRANSIT MECHANIC asked to place referral to [facility]. CM will continue to follow for DC planning. Problem: Pain - Adult Goal: Verbalizes/displays adequate comfort level or baseline comfort level Outcome: Progressing Problem: Safety - Adult Goal: Free from fall injury Outcome: Progressing Problem: Discharge Planning Goal: Discharge to home or other facility with appropriate resources Outcome: Progressing Problem: Chronic Conditions and Co-morbidities Goal: Patient's chronic conditions and co-morbidity symptoms are monitored and maintained or improved Outcome: Progressing Problem: Knowledge Deficit Goal: Patient/family/caregiver demonstrates understanding of disease process, treatment plan, medications, and discharge instructions Outcome: Progressing Problem: Potential for Compromised Skin Integrity Goal: Skin Integrity is Maintained or Improved Outcome: Progressing Goal: Nutritional status is improving Outcome: Progressing Problem: Urinary Incontinence Goal: Perineal skin integrity is maintained or improved Outcome: Progressing documented in this encounter [facility] 02-01-2025 History of Presen t illness Narrative Images from the original note were not included. [facility] - Infectious Diseases Advanced Practice Provider Progress Note Subjective: Following patient for sacral OM s/p debridement to bone 01/02. Notes reviewed. Patient reports feeling okay overall, feeling tired. Notes sacral wound and chest sore. Endorses intermittent SOB and cough. Denies fever, chills, N/V, abdominal pain, and any new bowel or urinary issues. No other new exacerbating or alleviating factors. Objective: Vitals: Patient Vitals for the past 24 hrs: BP Temp Temp src Pulse Resp SpO2 Weight 02/01/25 1044 121/61 -- -- -- -- -- -- 02/01/25 1042 -- 36.2 C (97.1 F) Temporal 69 24 93 % -- 02/01/25 0732 138/61 36.2 C (97.2 F) Temporal 74 16 94 % -- 02/01/25 0536 -- -- -- -- -- -- 46.1 kg (101 lb 10.1 oz) 02/01/25 0322 131/67 36.3 C (97.3 F) Temporal 82 19 92 % -- 01/31/25 2325 117/67 36.2 C (97.1 F) Temporal 78 (!) 11 99 % -- 01/31/25 1921 111/58 36.9 C (98.4 F) Temporal 74 (!) 34 92 % -- 01/31/25 1552 111/62 36.6 C (97.8 F) Temporal 67 20 97 % -- 01/31/25 1211 121/69 36 C (96.8 F) Temporal 65 16 100 % -- 01/31/25 1121 130/70 -- -- 57 -- -- -- Physical Exam: Physical Exam Vitals and nursing note reviewed. Constitutional: General: He is not in acute distress. Appearance: Normal appearance. He is normal weight. He is not ill-appearing. Comments: NAD laying in bed. Interactive, cooperative, conversant. Thin HENT: Head: Normocephalic and atraumatic. Right Ear: External ear normal. Left Ear: External ear normal. Nose: Nose normal. Mouth/Throat: Mouth: Mucous membranes are moist. Pharynx: Oropharynx is clear. Eyes: Extraocular Movements: Extraocular movements intact. Conjunctiva/sclera: Conjunctivae normal. Pupils: Pupils are equal, round, and reactive to light. Neck: Comments: Neck incision scar Cardiovascular: Rate and Rhythm: Normal rate and regular rhythm. Pulses: Normal pulses. Heart sounds: Normal heart sounds. Comments: Healed sternal scar Pulmonary: Effort: Pulmonary effort is normal. Breath sounds: Normal breath sounds. No wheezing, rhonchi or rales. Comments: Breathing comfortably on room air. No wheezes, rales, rhonchi Abdominal: General: Abdomen is flat. Bowel sounds are normal. There is no distension. Palpations: Abdomen is soft. Tenderness: There is no abdominal tenderness. There is no guarding. Musculoskeletal: Right lower leg: No edema. Left lower leg: No edema. Skin: General: Skin is warm and dry. Comments: Sacral wound images reviewed- pink tissue, small area slough L toes 1-4 with dry gangrene LUE AVF R chest tunneled line Neurological: General: No focal deficit present. Mental Status: He is alert and oriented to person, place, and time. Psychiatric: Mood and Affect: Mood normal. Behavior: Behavior normal. Labs: Recent Labs 01/30/25 0047 01/31/25 0010 02/01/25 0114 NA 135* 138 136 K 3.7 4.3 3.7 CL 99 99 99 CO2 23 27 26 BUN 10 15 7* CREATININE 2.56* 3.64* 2.39* GLUCOSE 88 87 87 CALCIUM 9.6 10.0 9.7 PROT -- 7.3 7.4 BILITOT -- 0.8 0.9 ALKPHOS -- 218* 226* AST -- 31 32 ALT -- 11 10 Recent Labs 01/30/25 0047 01/30/25 1224 01/31/25 0010 01/31/25205102/01/25 0114 WBC 8.8 -- 9.3 -- 7.9 HGB 8.7* < > 8.8* 9.2* 8.9* HCT 28.1* < > 27.9* 28.8* 28.3* PLT 276 -- 278 -- 282 < > = values in this interval not displayed. Micro: 01/22 C auris screen: negative 01/22 A baumannii screen: negative Previous ([facility]) 01/02- sacral wound cx- E faecalis (Amp-S), skin ila, Clostridium clostrioforme 01/01- blood cx- 2/2 NG 12/30- blood cx- 2/2 NGTD 12/30- sputum cx- MSSA, resp ila 12/25- blood cx- 2/2 negative 12/14- sputum cx- MSSA, resp ila 12/14- MRSA pcr- MSSA 12/11- sputum cx- MSSA, resp ila Previous ([facility]) 11/28- L pleural fluid- negative 11/16- abd fluid eswab- ASE faecalis 11/16- peritoneal cx- C glabrata 11/15- RPP- negative 11/15- sputum cx- resp ila 11/14- BAL pneumonia PCR- negative 11/14- BAL cx- resp ila 11/12- C diff PCR- negative 11/12- GI PCR- negative 11/02- MRSA PCR- MSSA 11/02- RPP- negative 11/01- pneumonia PCR- MSSA, RSV 11/01- BAL cx- MSSA, resp ila 11/01- blood cx- 2/2 negative 10/25- H pylori ag- negative 10/19- BAL cx- resp ila 10/19- BAL pneumonia PCR- coronavirus, RSV 10/16- BAL cx- resp ila 10/11- GI PCR- negative 10/03- blood cx- 2/2 negative 10/03- 4plex- RSV Lines: AVF 01/30 R chest tunneled line Radiography/Echo/Other: 01/19 CXR 1. Lingular infiltrate. 2. Prominence of the central pulmonary vasculature consistent with mild congestive heart failure/fluid overload. 3. Overall significant improvement in the aeration of the lungs when compared to the previous study. 01/20 CTA Abd/Pelvis 1. Imaging does not identify the site and/or source of the GI bleed. There is no intraluminal IV contrast appreciated. There are multiple loops of fluid-filled small and large bowel. The rectum is mildly distended with intraluminal fluid, consider diarrhea. 2. There is a large posterior decubitus ulcer which extends to the sacrum and coccyx with locules of air, fluid, and edema, correlate with clinical physical exam. This is new compared to 11/16/2024. 3. Colonic diverticulosis. 4. Renal atrophy. This patient has end-stage renal disease and is receiving dialysis. 5. Cholelithiasis. The gallbladder is decompressed with wall thickening measuring 6-7 mm (differential includes poor distention, systemic process, cholecystitis). Consider nuclear medicine HIDA scan and/or ultrasound. 6. Bilateral small pleural effusions with compressive atelectasis and/or infiltrate. Cardiomegaly. 7. Other: IVC filter. Percutaneous gastrostomy tube. Additional findings, as above. 01/24 CXR 1. Median sternotomy and valve repair. 2. Infiltrate in the lingula of the left upper lobe. 3. Prominence of the central pulmonary vasculature consistent with mild congestive heart failure/fluid overload. 4. The aeration of the lungs has improved mildly when compared to the previous study. 01/25 MBS No vocal cord penetration or airway aspiration. Antimicrobials, Start/End Dates: Anidulafungin: 11/27-11/28 Micafungin: 11/28- 12/10 Linezolid: 12/30-12/31 Pip/tazo: 12/30-01/01 Vancomycin: 12/31- 01/03 Meropenem: 01/01-01/04 Amp-Sulbactam: 01/06- present Impression: Sacral wound infection w osteomyelitis S/p bedside debridement w/ exposed bone (01/02) sacral wound cx: ASEC, Clostridium Tracheostomy dislodgement BRBPR S/p EGD 01/21- with non-bleeding duodenal ulcer. S/p colonoscopy 01/24- sigmoid diverticulosis & internal hemorrhoids; no active bleeding. Leukocytosis- resolved Hx MSSA LRTIs Hx Acute hypoxic respiratory failure s/p trach Hx C glabrata, ASEC peritonitis s/p treatment (10/2024) Pneumoperitoneum s/p ex-lap, EGD, & abhishek gastrostomy tube placement (11/16/24) Hx GIB s/p GDA embolization (10/14/24) PEA arrest x2 (10/14/24, 11/01/24) Severe aortic stenosis s/p AVR (23mm [place] mechanical- 10/12/24) LLE DVT's c/b ishemic L foot s/p IVC filter ESRD on HD via LUE AVF MWF Afib on amiodarone Plan: Following patient for sacral osteomyelitis. Wound debrided to bone 01/02- Cx with E faecalis and Clostridium. Plan to continue renally-dosed Amp-Sulbactam. Anticipate 6 week course through 02/13/25. OPAT complete and under media tab. Tunneled line in place. Patient's son Omar called to relay antibiotic plan per patient request. Okay for next phase of care from ID standpoint when all can be arranged. Total time of 35 minutes on this day of encounter spent on, but not limited to review of tests, medical records , complex history , counseling and education (patient, family member, caregiver), care coordination, arrangement of outpatient antimicrobial therapy, post-hospitalization therapy and follow-up, and counseling for risks, benefits, and consideration of use of antimicrobials. Mikala MORAN PA-C [facility] [place]ious Disease Nephrology Progress Note Following for ESRD Patient alert and cooperative. Seen upright in bed. Answers all basic questions with clear, soft vocal quality. Follows all basic commands. Current Inpatient Medications: Reviewed on NOV. Vitals: BP 121/61 (BP Location: Right arm, Patient Position: Sitting) Pulse 69 Temp 36.2 C (97.1 F) (Temporal) Resp 24 Ht 1.778 m (5' 10) Wt 46.1 kg (101 lb 10.1 oz) SpO2 93% BMI 14.58 kg/m BLOOD PRESSURE RANGE: Systolic (24hrs), Av , Min:72 , Max:138 ; Diastolic (24hrs), Av, Min:45, Max:71 24HR INTAKE/OUTPUT: Intake/Output Summary (Last 24 hours) at 02/01/2025 1048 Last data filed at 01/31/2025 1121 Gross per 24 hour Intake 300 ml Output -- Net 300 ml Physical exam: Constitutional: NAD Cardiovascular: RR Respiratory: CTAB without w/r/r Abdomen: +bs, soft, nt, nd Ext: no lower extremity edema Data: Labs: Recent Labs 01/30/25 0047 01/30/25 1224 01/31/25 0010 01/31/25205102/01/25 0114 WBC 8.8 -- 9.3 -- 7.9 HGB 8.7* < > 8.8* 9.2* 8.9* HCT 28.1* < > 27.9* 28.8* 28.3* MCV 89.2 -- 90.0 -- 89.6 PLT 276 -- 278 -- 282 < > = values in this interval not displayed. Recent Labs 01/30/25 0047 01/31/25 0010 02/01/25 0114 NA 135* 138 136 K 3.7 4.3 3.7 CL 99 99 99 CO2 23 27 26 GLUCOSE 88 87 87 CALCIUM 9.6 10.0 9.7 PHOS 3.7 4.6 3.4 MG 1.9 2.0 1.9 BUN 10 15 7* CREATININE 2.56* 3.64* 2.39* Assessment and Plan: 59-year-old male with a history of end-stage renal disease (ESRD) on a Wednesday/Wednesday/Wednesday hemodialysis (HD) schedule. His ESRD has been complicated by chronic hypotension, for which he is maintained on midodrine 15 mg every 6 hours. He remains on intermittent HD ESRD on MWF HD - HD yesterday did well Volume. - Bp acceptable recently - UF as tolerated with HD Mild Hyponatremia. - should improve with HD - no need for hypertonic saline Anemia in CKD. Hgb below goal - RONDA as OP - follow H&H - blood TF per primary team CKDMBD. Not on binders at this time - check phos in AM - phos gaol 3.5-5.5 PlAN Continue hemodialysis MWF schedule. Maintain midodrine for blood pressure support. Monitor daily weights, intake/output (I/Os), and clinical volume status. Continue to monitor BUN/Creatinine and electrolyte panel post-HD sessions. No anticoagulation restarted at this time due to recent GI bleeding and supratherapeutic INR. Ensure appropriate vascular access site care. Nephrology to continue routine management and reassess HD prescription as needed based on volume status and labs. Wellington Nicole MD Images from the original note were not included. Speech-Language Pathology SPEECH LANGUAGE PATHOLOGY [facility] Dysphagia Treatment Note Patient Name: Jun Snyder Evaluation Date: 02/01/2025 Date of : 1965 Admission Date: 01/19/2025 2:13 AM Age: 59 y.o. Room/Bed: 1C-144/1C-144 A Subjective Patient alert and cooperative. Seen upright in bed. Answers all basic questions with clear, soft vocal quality. Follows all basic commands. RN at bedside to administer medications. Spoke with SWEETIE Hernandez who cleared pt for treatment. Current Diet: Dietary Orders (From admission, onward) Start Ordered 01/31/25 1528 Adult diet Dysphagia - Soft and Bite Sized Diet effective now Comments: Thin liquids Question: Diet type Answer: Dysphagia - Soft and Bite Sized 01/31/25 1528 01/30/25 1247 Supplement:Dinner; Nepro w/CARB Steady Until discontinued Question Answer Comment Frequency Dinner Select supplement: Nepro w/CARB Steady 01/30/25 1246 Aspiration Precautions: - Upright positioning for all PO intake - Small bites/sips - Single sips - Frequent re-swallows Oxygen: Oxygen Therapy: None (Room air) Pain: RN managing pain. 0-10 pain scale: 7/10 Location: chest - RN placing lidocaine patch PPE Worn: gloves Objective & Assessment Dysphagia Treatment # of Activities: 1 Dysphagia Activity 1: Assess diet tolerance Patient agreeable to limited PO trials today. Accepted jello, water, and medications whole in jello. Trials all met with clinically adequate oral bolus control, timely swallow onset per palpation, and no overt s/sx of aspiration or penetration. Patient continues to be impulsive with drinking despite max cues to take single drinks. Declined all further PO trials this date - states his dentures are soaking. Patient remains apparently confused - reaching for bed remote and randomly pressing buttons. Despite ST offers to help/asking what is needed patient unable to state what positioning he was trying to achieve. Do question if this is patient's safest diet given impulsivity and poor adherence to swallow strategies. Plan & Recommendations Plan: Continue acute E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 therapy per initial plan of care and established goals. Recommend Soft and bite-sized solids and Thin liquids and meds whole in puree and the following precautions: - Upright positioning for all PO intake - Slow rate of intake - Small bites/sips - Swallow x 2 per bolus D/C Recommendations: to be determined Education Education Given: safety, swallowing strategies, diet recommendations Given To: patient and RN Response: verbalizes understanding Goals Patient Stated Goal: None stated at this time. Encounter Problems Encounter Problems (Active) Swallowing Patient will tolerate the least restrictive diet consistency to allow for safe consumption of daily meals (Progressing) Start: 01/25/25 Expected End: 02/08/25 Patient will tolerate recommended food and liquid consistencies without clinical signs and symptoms of aspirations (Progressing) Start: 01/25/25 Expected End: 02/08/25 Encounter Problems (Resolved) Swallowing Patient will participate in instrumental assessment of swallowing as appropriate (Completed) Start: 01/19/25 Expected End: 02/02/25 Resolved: 01/25/25 Therapy Time E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 Individual Minutes Time In: 816 Time Out: 829 Minutes: 13 Khadijah Carranza CCC-E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 Hospitalist Progress Note Subjective: Admit Date: 01/19/2025 PCP: Leilani Troncoso Room#: 1C-144/1C-144 A Chief Complaint Patient presents with Tracheostomy Tube Change Brief Hospital course: Jun Snyder is a 59 y.o. male who who presented to [facility] 01/19 after inadvertent removal of his tracheostomy. He was transferred to [facility] ICU for surgical evaluation. On arrival he was maintaining appropriate O2 saturations on room air and the decision was made to leave the tracheostomy out. Able to be transferred out of ICU later that day. On 01/20 critical care and GI were consulted due to rectal bleeding. At that time patient determined to be stable to remain on GMF. On the morning of 01/21, GI recommended ICU transfer for EGD which revealed non-bleeding duodenal ulcer. At that time patient's sacral wound was noted to be bleeding. Have been trending INR's and H&H, currently stable. Received one unit of FFP per ZOË panel on 01/26 with no further evidence of bleed. Resumed Heparin ggt bridge to warfarin. Underwent HD successfully. hemodynamically stable. Transferred out to [facility] 01/27 ID following for sacral osteomyelitis, s/p wound debridement to bone on 01/02, cultures grew E faecalis and Clostridium, continue with renally dosed ampicillin sulbactam for 6 weeks course through 02/13/2025, needs tunneled line, status post IR CVC tunneled line on 01/29 Nephrology following, on dialysis E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 following PT/OT recommends SNF Patient will be discharged to SNF today in stable condition Interval History: 02/01/2025-No overnight issues. Patient is seen and examined He is comfortably resting in his bed without in any acute distress, he reports no new acute complaints Labs reviewed, ESRD picture, hemoglobin 8.9, stable Case and plan discussed with patient and bedside nurse. All questions answered. Past Medical History: Past Medical History: Diagnosis Date Acute renal failure (ARF) ([facility]) 10/19/2019 Anemia 12/30/2021 Calcification of abdominal aorta ([facility]) 10/08/202309/[address] abd Diverticulosis 10/08/2023 ESRD on hemodialysis ([facility] ([facility]) 10/26/2019 Hemodialysis [place] ([facility] ([facility]) HTN (hypertension) 12/01/2022 Hypertension IgA nephropathy 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 10/26/2019 Missed vaccination due to patient refusal 10/08/2023 Has a number of non-scientific based beliefs which interfere with his understanding and acceptance of the medical benefit of vaccination. Nonrheumatic aortic valve stenosis 10/08/2023 Paroxysmal A-fib (CMS/HCC) (HCC) 08/18/2023 Tobacco abuse 10/08/2023 Adult diet Dysphagia - Soft and Bite Sized 24HR INTAKE/OUTPUT: Intake/Output Summary (Last 24 hours) at 02/01/2025 0904 Last data filed at 01/31/2025 1121 Gross per 24 hour Intake 300 ml Output -- Net 300 ml LABS: CBC: Recent Labs 01/30/25 0047 01/30/25 1224 01/31/25 0010 01/31/25205102/01/25 0114 WBC 8.8 -- 9.3 -- 7.9 RBC 3.15* -- 3.10* -- 3.16* HGB 8.7* < > 8.8* 9.2* 8.9* HCT 28.1* < > 27.9* 28.8* 28.3* MCV 89.2 -- 90.0 -- 89.6 RDW 18.9* -- 19.2* -- 18.8* PLT 276 -- 278 -- 282 < > = values in this interval not displayed. BMP: Recent Labs 01/30/25 0047 01/31/25 0010 02/01/25 0114 NA 135* 138 136 K 3.7 4.3 3.7 CL 99 99 99 CO2 23 27 26 BUN 10 15 7* CREATININE 2.56* 3.64* 2.39* GLUCOSE 88 87 87 CALCIUM 9.6 10.0 9.7 ANIONGAP 13 12 11 LIVER PROFILE: Recent Labs 01/31/25 0010 02/01/25 0114 AST 31 32 ALT 11 10 BILITOT 0.8 0.9 ALKPHOS 218* 226* PROT 7.3 7.4 PT/INR: Recent Labs 01/30/25 0047 01/31/25 0010 02/01/25 0114 PROTIME 24.9* 22.4* 20.3* INR 2.5* 2.2* 2.0* CARDIAC ENZYMES: No results for input(s): TROPONINI in the last 72 hours. Procalcitonin: No results found for: PROCAL COVID-19 PCR: No results for input(s): COVID19 in the last 72 hours. Objective: Vitals: BP 138/61 (BP Location: Right arm, Patient Position: Sitting) Pulse 74 Temp 36.2 C (97.2 F) (Temporal) Resp 16 Ht 5' 10 (1.778 m) Wt 101 lb 10.1 oz (46.1 kg) SpO2 94% BMI 14.58 kg/m Pulse Ox: SpO2 Av.3 % Min: 92 % Max: 100 % Supplemental O2: O2 Flow Rate (L/min): 3 L/min Physical Exam HENT: Head: Normocephalic and atraumatic. Mouth/Throat: Mouth: Mucous membranes are moist. Cardiovascular: Rate and Rhythm: Normal rate. Pulmonary: Effort: Pulmonary effort is normal. Abdominal: Palpations: Abdomen is soft. Skin: General: Skin is warm and dry. Neurological: Mental Status: He is alert and oriented to person, place, and time. Psychiatric: Mood and Affect: Mood normal. Medications: Scheduled PRN ampicillin-sulbactam, 3,000 mg, IntraVENous, q24h chlorhexidine, , Topical, Daily collagenase, , Topical, Daily Lidocaine, 1 patch, Topical, Daily metoprolol tartrate, 25 mg, Per G Tube, BID midodrine, 10 mg, Oral, BID sodium chloride 0.9%, 10 mL, IntraCATHeter, q12h warfarin, 0.5 mg, Oral, Once PRN medications: acetaminophen, collagenase, dextrose, dextrose, glucagon (rDNA), glucose, ipratropium-albuterol, melatonin, metoprolol, naloxone, oxyCODONE OR oxyCODONE, prochlorperazine, sodium chloride, sodium chloride, sodium chloride 0.9% Continuous sodium chloride, 20 mL/hr, Last Rate: 20 mL/hr (01/30/25 8888) Assessment Data: (CAT1) Reviewed 2 notes from different specialty or health system (each=1). (CAT1) Reviewed 3 or more labs/studies previously ordered by me not previously counted (each=1, panels count as 1). (CAT1) Ordered 3 or more new labs and/or studies (each=1, panels count as 1). (LOW: 2x CAT1 or independent historian MOD: 3x CAT1 or 1x CAT3 EXTENSIVE: 3x CAT1 and 1x CAT3) Acute, acute on chronic, unstable/uncontrolled chronic problems/diagnoses: GIB w/ bleeding worsened by Coumadin - Internal hemorrhoids Stage V Sacral Wound with osteomyelitis POA Supratherapeutic INR on Coumadin Acute on Chronic Anemia w/ blood loss anemia Aortic Valve Stenosis status post aortic valve replacement on coumadin Chronic Respiratory Failure with Hypoxia s/p Trach - now removed ESRD on HD Chronic Hypotension Afib on Coumadin Necrotic L toes Stable chronic problems affecting care, new non-acute diagnoses: ESRD Hypertension IgA nephropathy Paroxysmal A-fib Plan As a result of the above findings & factors, the following mgmt was pursued: - Seen by GI, s/p colonoscopy -Dose coumadin per [facility], INR daily -Follow HH, transfuse for Hg <7.00 -Wound care -HD per Nephrology MWF -Unasyn 6 weeks until 02/13 for sacral wound with OM by ID -S/p tunneled central line placement -E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 follow, dysphagia diet -PT OT DC recommend SNF - am labs, replace lytes prn - PT/OT/CM/SW - delirium precautions: increase activity, limit nighttime disturbances, and avoid anticholinergic meds, benzos, etc - DVT prophylaxis: encourage ambulation, GI bleed Complexity: Acute illness or injury posing a threat to life or body function (HIGH). Risk: Advance Directive: Full Code Anticipated Discharge - Date - today - Location - Skilled Facility - Pending the following -DC today Total time spent (which include face to face and non face to face encounters) : More than 31 minutes Extended Emergency Contact Information Primary Emergency Contact: Omar Snyder Mobile Relation: Child Secondary Emergency Contact: Toma Mcneil Mobile Relation: Partner Barb Dawkins MD Division of Hospital Medicine Inpatient Medical Services/[place] [facility] Anticoagulation Management Service ([facility]) Inpatient Warfarin Consult HPI: Jun Snyder is a 59 y.o. male admitted on 01/19/2025 for Complication of tracheostomy (CMS/HCC) (HCC) [J95.00] Past Medical History: Diagnosis Date Acute renal failure (ARF) ([facility]) 10/19/2019 Anemia 12/30/2021 Calcification of abdominal aorta ([facility]) 10/08/202309/[address] abd Diverticulosis 10/08/2023 ESRD on hemodialysis ([facility] ([facility]) 10/26/2019 Hemodialysis patient ([facility]) ([facility]) HTN (hypertension) 12/01/2022 Hypertension IgA nephropathy 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 10/26/2019 Missed vaccination due to patient refusal 10/08/2023 Has a number of non-scientific based beliefs which interfere with his understanding and acceptance of the medical benefit of vaccination. Nonrheumatic aortic valve stenosis 10/08/2023 Paroxysmal A-fib ([facility]) ([facility]) 08/18/2023 Tobacco abuse 10/08/2023 Patient is on warfarin for Afib, mechanical AVR and has a goal INR 2.0 - 3.0. Warfarin is currently managed by facility, has yet to be seen by [facility]. Pt's home dose of warfarin is not yet established, managed by facility. S/sx of bleeding= internal hemorrhoids, no other bleeding noted Interacting medications= none Labs: Recent Labs 01/30/25 0047 01/30/25 1224 01/31/25 0010 01/31/25205102/01/25 0114 HGB 8.7* < > 8.8* 9.2* 8.9* HCT 28.1* < > 27.9* 28.8* 28.3* PLT 276 -- 278 -- 282 < > = values in this interval not displayed. Recent Labs 02/01/25 0114 INR 2.0* Date INR Dose 02/01 2.0 0.5mg 01/31 2.2 0.5mg 01/30 2.5 HOLD 01/29 2.4 Held 01/28 2.2 0.5mg 01/27 1.9 1mg 01/26 1.8 1 mg 01/25 1.7 0.5 mg 01/24 1.5 1mg 01/23 2.0 HOLD 01/22 8.1/3.1 HOLD vitamin K 2.5mg PO 01/21 7.9 Held 01/20 --- Held 01/19 2.7 HOLD Assessment/Plan: 1. INR is therapeutic. Pt has been very sensitive to warfarin so continue low dose of 0.5mg again today 2. Monitor for s/s of bleeding and drug interactions. Will adjust dose accordingly 3. Will facilitate f/u at [facility] upon discharge Tiffanie Dial RPh [facility] is available daily [phone] via [employer]. If no response on [employer] Chat then please page [phone]. Images from the original note were not included. OCCUPATIONAL THERAPY [facility] Re-Evaluation Name/MRN: Jair Snyder ([id number]) Evaluation Date: 01/31/2025 Date of : 1965 Admission Date: 01/19/2025 2:13 AM Age: 59 y.o. Room/Bed: 1C144/1C144 A Discharge Recommendation: Jail Facility Other: DME TBD Assessment IMPRESSION: OT re-eval completed this date d/t decline in status and transfer to ICU. Goals and POC updated. Pt presents with limited activity tolerance, increased pain, and overall decreased strength. Max assist bed mobility and min-total assist ADLs. Pt unsafe to return home, recommend SNF level therapy at discharge. Admitting Diagnosis: Complication of tracheostomy Performance Deficits /Impairments: Increased Pain, Decreased Functional Mobility, Decreased ADL status, Decreased Strength, Decreased Safety Awareness, Decreased Endurance, Decreased Balance, and Decreased High Level IADLs Prognosis: Fair Decision Making: Medium Complexity Subjective Pt lying upright in bed, agreeable to OT. Pain: Michel-Nolasco Pain Ratin = Hurts whole lot Pain Location: buttocks Past Medical History: Past Medical History: Diagnosis Date Acute renal failure (ARF) ([facility]) 10/19/2019 Anemia 12/30/2021 Calcification of abdominal aorta ([facility]) 10/08/202309/[address] abd Diverticulosis 10/08/2023 ESRD on hemodialysis ([facility]) ([facility]) 10/26/2019 Hemodialysis patient ([facility]) ([facility]) HTN (hypertension) 12/01/2022 Hypertension IgA nephropathy 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 10/26/2019 Missed vaccination due to patient refusal 10/08/2023 Has a number of non-scientific based beliefs which interfere with his understanding and acceptance of the medical benefit of vaccination. Nonrheumatic aortic valve stenosis 10/08/2023 Paroxysmal A-fib ([facility] ([facility]) 08/18/2023 Tobacco abuse 10/08/2023 Past Surgical History: Past Surgical History: Procedure Laterality Date APPENDECTOMY CARDIAC CATHETERIZATION N/A 10/09/2024 Performed by Bob Watson MD at [facility] Cardiac Cath/EP Lab CARDIAC CATHETERIZATION Bilateral 11/01/2024 Performed by Bob Watson MD at [facility] Cardiac Cath/EP Lab CARDIAC CATHETERIZATION N/A 11/01/2024 Performed by Bob Watson MD at [facility] Cardiac Cath/EP Lab COLONOSCOPY N/A 01/24/2025 Performed by Chadd Davis MD at [facility] ENDOSCOPY FISTULAGRAM (HISTORICAL) Left 09/15/2021 LEFT UPPER ARM HX AV FISTULA CREATION IR EMBOLIZATION 10/14/2024 IR EMBOLIZATION 10/14/2024 [facility] SPECIAL PROCEDURES IR FISTULAGRAM 08/07/2022 IR FISTULAGRAM 08/07/2022 [facility] IR IMAGING TONSILLECTOMY (HISTORICAL) Admission Diagnosis: Patient Active Problem List Diagnosis Date Noted Severe malnutrition ([facility]) ([facility]) 01/19/2025 Complication of tracheostomy ([facility]) ([facility]) 01/19/2025 rn long term care (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 01/12/2025 Acute respiratory failure with hypoxia ([facility]) [J96.01] 01/08/2025 Tracheostomy care ([facility]) [Z43.0] 01/08/2025 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[facility]) 01/08/2025 Sacral osteomyelitis ([facility]) ([facility]) 01/03/2025 Pneumonia of both lungs due to methicillin susceptible Staphylococcus aureus (MSSA) ([facility]) 01/01/2025 Leukocytosis 12/30/2024 Decubitus ulcer of sacral region, unstageable ([facility]) 12/30/2024 Peritonitis due to fungus ([facility]) 11/30/2024 History of abdominal surgery 11/30/2024 Leg DVT (deep venous thromboembolism), acute, left ([facility]) 11/30/2024 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, 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 of skin ([facility]) 11/30/2024 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[facility]) 11/30/2024 Pleural effusion 11/28/2024 Gastric ulceration 2024 Atrial flutter, unspecified type ([facility]) 10/03/2024 RSV (acute bronchiolitis due to respiratory syncytial virus) 10/03/2024 Diverticulosis 10/08/2023 Nonrheumatic aortic valve stenosis 10/08/2023 Calcification of abdominal aorta ([facility]) 10/08/2023 Missed vaccination due to patient refusal 10/08/2023 Tobacco abuse 10/08/2023 Alcohol use disorder in remission 10/08/2023 Paroxysmal A-fib ([facility]) ([facility]) 08/18/2023 HTN (hypertension) 12/01/2022 ESRD on hemodialysis ([facility] [facility]) ([facility]) 10/26/2019 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 10/26/2019 BRBPR (bright red blood per rectum) 01/19/2025 Aortic stenosis 10/03/2024 Upper GI bleed 10/03/2024 S/P AVR 10/03/2024 Acute hypoxic respiratory failure ([facility]) 10/03/2024 Acute encephalopathy 10/03/2024 Pneumoperitoneum 10/03/2024 Anemia 12/30/2021 Medical Precautions: No active isolations Proper PPE donned/doffed in accordance with facility standards. Fall Risk: Roque Fall Risk Score: 60 (Medium Risk) Roque Fall Risk Score: 60 (High Risk) Precautions/Restrictions: Lines/Drains/Airways: CVC, enterostomy Fall Precautions Skin care precautions, envella bed Family/Caregiver Present: none Overall Cognitive Status: Exceptions - Memory: decreased recall of precautions, decreased recall of recent events, and decreased short term memory - Safety judgement: decreased awareness of need for assistance and decreased awareness of need for safety - Problem solving: assistance required to generate solutions and assistance required to implement solutions - Insights: decreased awareness of deficits - Initiation: requires cues for some - Sequencing: requires cues for some Overall Orientation Status: Oriented to Place, Oriented to Situation, and Oriented to Person Social/Functional History Pt poor historian, reports from [place] but also reports lives with 9 people (his 4 sons and 3 grandsons were all he could remember) Prior Level of Function Prior Level of ADL Function: Required Assist Prior Level of Mobility: Required Assist; Device: unknown Prior Level of Transfers: Required Assist Objective ADLs LE Dressing: Dependent Toileting: Dependent Grooming: SBA, after setup, verbal cues to initiate and sequence UE Bathing: Min Assist Upper Extremity Assessment AROM: WFL PROM: WFL Strength: Exceptions: BUE grossly 3-/5 Bed Mobility Rolling to right: Max Assist Rolling to left: Max Assist Scooting: Max Assist Transfers/Mobility N/A AM-PAC AM-PAC Inpatient Daily Activity Raw Score: 12 ADL Inpatient CMS G-Code Modifier: CL Plan Pt would benefit from skilled acute OT services to address Strengthening, ROM, Gait Training, Balance Training, Self-Care/ADL Training, Functional Mobility Training, Endurance Training, Safety Education and Training, Equipment Evaluation/Education, Cognitive Reorientation, Home Management Training, Patient/Caregiver Training, and Cognitive/Perceptual Training. Frequency: 1x/week for 4 weeks Barriers: Pain, Impaired balance, Lower extremity weakness, Upper extremity weakness, Decreased endurance, Limited safety awareness, Confusion, New weightbearing/ROM restrictions, Limited insight into deficits, and Long standing deficits Safety/Education Safety Safety Devices in place: All fall risk precautions in place, call light within reach, left in bed, patient at risk for falls, nurse notified, and no alarms engaged upon entry Restraints: No Education Education Given To: patient Education Provided: OT Role, Plan of Care, Precautions, ADL Adaptive Strategies, Transfer Training, Equipment, Fall Prevention Education, Discharge Recommendations, and Benefits of Increasing Activity Education Method: Verbal Barriers to Learning: Cognition Education Outcome: Verbalized Understanding and Continued Education Needed Goals Patient Stated Goal: rehab Encounter Problems Encounter Problems (Active) Balance Patient will maintain static sitting balance for 3 minutes with CGA in order to demonstrate improved postural control and prepare for out of bed activity Start: 01/20/25 Expected End: 02/28/25 Dressings Lower Extremities Patient will dress lower body with AE PRN with Mod A. Start: 01/20/25 Expected End: 02/28/25 Grooming Patient will complete daily grooming tasks with setup and SUP. Start: 01/20/25 Expected End: 02/28/25 Transfers Patient will complete functional transfer with FWW with mod assist in order to prepare for ADLs. Start: 01/20/25 Expected End: 02/28/25 Therapy Time Individual Co-Treatment Co-Evaluation Time In 1556 Time Out 1606 Minutes 10 RONNY Ramirez/Tameka Patient's Occupational Therapy Plan of Care supervision is transferred to a [facility] Occupational Therapist. Goals and/or treatment plan was established in collaboration with patient/family/other representatives. Images from the original note were not included. Speech-Language Pathology SPEECH LANGUAGE PATHOLOGY [facility] Dysphagia Treatment Note Patient Name: Jun Snyder Evaluation Date: 01/31/2025 Date of : 1965 Admission Date: 01/19/2025 2:13 AM Age: 59 y.o. Room[facility]Bed: [facility] A Subjective Patient alert and cooperative. Seen upright in bed. Answers all basic questions with hoarse vocal quality. Follows all basic commands. No visitors at bedside. Spoke with SWEETIE Perales who cleared pt for treatment. Current Diet: Dietary Orders (From admission, onward) Start Ordered 01/30/25 1247 Supplement:Dinner; Nepro w/CARB Steady Until discontinued Question Answer Comment Frequency Dinner [place] supplement: Nepro w/CARB Steady 01/30/25 1246 01/25/25 1314 Adult diet Dysphagia - Pureed Diet effective now Comments: Pureed solids and Thin liquids and meds crushed in puree and the following precautions: - Upright positioning for all PO intake - Small bites/sips - Frequent re-swallows to clear oral cavity Question: Diet type Answer: Dysphagia - Pureed 01/25/25 1315 Aspiration Precautions: - Upright positioning for all PO intake - Small bites/sips - Frequent re-swallows to clear oral cavity Oxygen: Oxygen Therapy: Supplemental oxygen O2 Delivery Method: Nasal cannula O2 Flow Rate (L/min): 3 L/min Pain: Pt denies any current pain. PPE Worn: gloves Objective & Assessment Dysphagia Treatment # of Activities: 1 Dysphagia Activity 1: Assess diet tolerance Patient consumes thin liquids via straw over several trials, with multiple verbal cues each trial to take single sips. Patient persists on taking multiple sips via straw each time and has a delayed cough each time, stating that is not the water, but mucous in his throat. Patient has a timely swallow onset and clinically good hyo-laryngeal elevation. Patient further trials puree and soft and bite sized solids. With extra time, patient is able to completely masticate soft and bite sized trials with excellent bolus management and clear oral cavity post swallow. Patient is appropriate for small diet upgrade. Patient is insistent that clinician stay in room while he places a call to his son to request he bring his dentures to trial more advanced textures. Plan & Recommendations Plan: ST to follow to determine max diet and for oropharyngeal strengthening. Continue acute E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 therapy per initial plan of care and established goals. Recommend Soft and bite-sized solids and Thin liquids and meds whole in puree or crushed in puree and the following precautions: - Upright positioning for all PO intake - Small bites/sips - Single sips - Frequent re-swallows D/C Recommendations: to be determined Education Education Given: swallowing strategies, diet recommendations Given To: patient and RN Response: verbalizes understanding Goals Patient Stated Goal: To have a burger. Encounter Problems Encounter Problems (Active) Swallowing Patient will tolerate the least restrictive diet consistency to allow for safe consumption of daily meals (Progressing) Start: 01/25/25 Expected End: 02/08/25 Patient will tolerate recommended food and liquid consistencies without clinical signs and symptoms of aspirations (Progressing) Start: 01/25/25 Expected End: 02/08/25 Encounter Problems (Resolved) Swallowing Patient will participate in instrumental assessment of swallowing as appropriate (Completed) Start: 01/19/25 Expected End: 02/02/25 Resolved: 01/25/25 Therapy Time E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 Individual Minutes Time In: 1454 Time Out: 1515 Minutes: 21 FRANKLIN Carmona Images from the original note were not included. OCCUPATIONAL THERAPY [facility] Name/MRN: Jair Snyder ([id number]) Date: 01/31/2025 Attempted OT re-eval once pt returned from dialysis, pt very fatigued. Initially responsive to OT then stops conversing and unable to remain roused. Will follow and attempt as able. RONNY Ramirez/Tameka Images from the original note were not included. [facility] - Infectious Diseases Advanced Practice Provider Progress Note Subjective: Following patient for sacral OM. Notes reviewed. Patient seen in HD. Patient reports sacral wound is less sore compared to yesterday. Endorses intermittent SOB. Reports tolerating antibiotics well. No other new exacerbating or alleviating factors. Objective: Vitals: Patient Vitals for the past 24 hrs: BP Temp Temp src Pulse Resp SpO2 Weight 01/31/25 1121 130/70 -- -- 57 -- -- -- 01/31/25 1111 127/71 36.2 C (97.2 F) -- 56 16 100 % -- 01/31/25 1100 128/68 -- -- 62 -- -- -- 01/31/25 1045 100/54 -- -- 65 -- -- -- 01/31/25 1030 116/61 -- -- 66 -- -- -- 01/31/25 1015 134/70 -- -- 64 -- -- -- 01/31/25 1000 141/81 -- -- 75 -- -- -- 01/31/25 0945 137/76 -- -- 67 -- -- -- 01/31/25 0930 122/71 -- -- 57 -- -- -- 01/31/25 0915 136/76 -- -- 70 -- -- -- 01/31/25 0900 136/76 -- -- 73 -- -- -- 01/31/25 0845 134/79 -- -- 76 -- -- -- 01/31/25 0830 129/70 -- -- 69 -- -- -- 01/31/25 0815 117/64 -- -- 64 -- -- -- 01/31/25 0812 121/70 -- -- 70 -- -- -- 01/31/25 0811 115/68 -- -- 72 -- -- -- 01/31/25 0801 120/68 36.3 C (97.3 F) -- 79 20 100 % -- 01/31/25 0600 -- -- -- -- -- -- 53.2 kg (117 lb 4.6 oz) 01/31/25 0400 -- -- -- 78 -- -- -- 01/31/25 0321 (!) 133/104 -- -- 77 16 95 % -- 01/31/25 0000 -- -- -- 75 -- -- -- 05/06/25 2220 134/75 36.6 C (97.9 F) Temporal 71 16 92 % -- 01/30/25 1954 129/80 36.2 C (97.1 F) Temporal 80 16 99 % -- 01/30/25 1542 (!) 109/38 36.1 C (97 F) Temporal 74 (!) 11 92 % -- 01/30/25 1420 -- -- -- 73 18 -- -- 01/30/25 1415 -- -- -- 73 16 -- -- 01/30/25 1410 -- -- -- 73 (!) 28 -- -- 01/30/25 1405 -- -- -- 71 12 -- -- 01/30/25 1400 -- -- -- 76 25 -- -- Physical Exam: Physical Exam Vitals and nursing note reviewed. Constitutional: General: He is not in acute distress. Appearance: Normal appearance. He is normal weight. He is not ill-appearing. Comments: NAD laying in bed getting HD. Interactive, cooperative, conversant. Thin HENT: Head: Normocephalic and atraumatic. Right Ear: External ear normal. Left Ear: External ear normal. Nose: Nose normal. Mouth/Throat: Mouth: Mucous membranes are moist. Pharynx: Oropharynx is clear. Eyes: Extraocular Movements: Extraocular movements intact. Conjunctiva/sclera: Conjunctivae normal. Pupils: Pupils are equal, round, and reactive to light. Neck: Comments: Neck incision healing with scar Cardiovascular: Rate and Rhythm: Normal rate and regular rhythm. Pulses: Normal pulses. Heart sounds: Normal heart sounds. Comments: Healed sternal scar Pulmonary: Effort: Pulmonary effort is normal. Breath sounds: Normal breath sounds. No wheezing, rhonchi or rales. Comments: Breathing unlabored on NC No wheezes, rales, rhonchi Abdominal: General: Abdomen is flat. Bowel sounds are normal. There is no distension. Palpations: Abdomen is soft. Tenderness: There is no abdominal tenderness. There is no guarding. Musculoskeletal: Right lower leg: No edema. Left lower leg: No edema. Skin: General: Skin is warm and dry. Comments: Sacral wound images reviewed. Wound vac in place with serosanguinous drainage in cannister L toes 1-4 with dry gangrene LUE AVF R chest tunneled line Neurological: General: No focal deficit present. Mental Status: He is alert and oriented to person, place, and time. Psychiatric: Mood and Affect: Mood normal. Behavior: Behavior normal. Labs: Recent Labs 01/29/257 01/30/25 0047 01/31/25 0010 NA 134* 135* 138 K 3.7 3.7 4.3 CL 94* 99 99 CO2 23 23 27 BUN 21 10 15 CREATININE 4.17* 2.56* 3.64* GLUCOSE 80 88 87 CALCIUM 9.8 9.6 10.0 PROT -- -- 7.3 BILITOT -- -- 0.8 ALKPHOS -- -- 218* AST -- -- 31 ALT -- -- 11 Recent Labs 01/29/257 01/30/25 0047 01/30/25 1224 01/31/25 0010 WBC 9.4 8.8 -- 9.3 HGB 8.6* 8.7* 9.8* 8.8* HCT 27.3* 28.1* 31.5* 27.9* PLT 271 276 -- 278 Micro: 01/22 C auris screen: negative 01/22 A baumannii screen: negative Previous ([facility]) 01/02- sacral wound cx- E faecalis (Amp-S), skin ila, Clostridium clostrioforme 01/01- blood cx- 2/2 NG 12/30- blood cx- 2/2 NGTD 12/30- sputum cx- MSSA, resp ila 12/25- blood cx- 2/2 negative 12/14- sputum cx- MSSA, resp ila 12/14- MRSA pcr- MSSA 12/11- sputum cx- MSSA, resp ila Previous ([facility]) 11/28- L pleural fluid- negative 11/16- abd fluid eswab- ASE faecalis 11/16- peritoneal cx- C glabrata 11/15- RPP- negative 11/15- sputum cx- resp ila 11/14- BAL pneumonia PCR- negative 11/14- BAL cx- resp ila 11/12- C diff PCR- negative 11/12- GI PCR- negative 11/02- MRSA PCR- MSSA 11/02- RPP- negative 11/01- pneumonia PCR- MSSA, RSV 11/01- BAL cx- MSSA, resp ila 11/01- blood cx- 2/2 negative 10/25- H pylori ag- negative 10/19- BAL cx- resp ila 10/19- BAL pneumonia PCR- coronavirus, RSV 10/16- BAL cx- resp ila 10/11- GI PCR- negative 10/03- blood cx- 2/2 negative 10/03- 4plex- RSV Lines: AVF / R chest tunneled line Radiography/Echo/Other: 01/19 CXR 1. Lingular infiltrate. 2. Prominence of the central pulmonary vasculature consistent with mild congestive heart failure/fluid overload. 3. Overall significant improvement in the aeration of the lungs when compared to the previous study. 01/20 CTA Abd/Pelvis 1. Imaging does not identify the site and/or source of the GI bleed. There is no intraluminal IV contrast appreciated. There are multiple loops of fluid-filled small and large bowel. The rectum is mildly distended with intraluminal fluid, consider diarrhea. 2. There is a large posterior decubitus ulcer which extends to the sacrum and coccyx with locules of air, fluid, and edema, correlate with clinical physical exam. This is new compared to 11/16/2024. 3. Colonic diverticulosis. 4. Renal atrophy. This patient has end-stage renal disease and is receiving dialysis. 5. Cholelithiasis. The gallbladder is decompressed with wall thickening measuring 6-7 mm (differential includes poor distention, systemic process, cholecystitis). Consider nuclear medicine HIDA scan and/or ultrasound. 6. Bilateral small pleural effusions with compressive atelectasis and/or infiltrate. Cardiomegaly. 7. Other: IVC filter. Percutaneous gastrostomy tube. Additional findings, as above. 01/24 CXR 1. Median sternotomy and valve repair. 2. Infiltrate in the lingula of the left upper lobe. 3. Prominence of the central pulmonary vasculature consistent with mild congestive heart failure/fluid overload. 4. The aeration of the lungs has improved mildly when compared to the previous study. 01/25 MBS No vocal cord penetration or airway aspiration. Antimicrobials, Start/End Dates: Anidulafungin: 11/27-11/28 Micafungin: 11/28- 12/10 Linezolid: 12/30-12/31 Pip/tazo: 12/30-01/01 Vancomycin: 12/31- 01/03 Meropenem: 01/01-01/04 Amp-Sulbactam: 01/06- present Impression: Sacral wound infection w osteomyelitis S/p bedside debridement w/ exposed bone (01/02) sacral wound cx: ASEC, Clostridium Tracheostomy dislodgement BRBPR S/p EGD 01/21- with non-bleeding duodenal ulcer. S/p colonoscopy 01/24- sigmoid diverticulosis & internal hemorrhoids; no active bleeding. Leukocytosis- resolved Hx MSSA LRTIs Hx Acute hypoxic respiratory failure s/p trach Hx C glabrata, ASEC peritonitis s/p treatment (10/2024) Pneumoperitoneum s/p ex-lap, EGD, & abhishek gastrostomy tube placement (11/16/24) Hx GIB s/p GDA embolization (10/14/24) PEA arrest x2 (10/14/24, 11/01/24) Severe aortic stenosis s/p AVR (23mm [place] mechanical- 10/12/24) LLE DVT's c/b ishemic L foot s/p IVC filter ESRD on HD via LUE AVF MWF Afib on amiodarone Plan: Following patient for sacral osteomyelitis s/p wound debridement to bone 01/02. Cx + E faecalis and Clostridium Continue renally-dosed Amp-Sulbactam through 02/13/25 to complete 6 week course. OPAT complete and under media tab. Tunneled line in place. Monitor infectious parameters. Continue wound care. Okay for next phase of care from ID standpoint when all can be arranged. Total time of 25 minutes on this day of encounter spent on, but not limited to review of tests, medical records , complex history , counseling and education (patient, family member, caregiver), care coordination, arrangement of outpatient antimicrobial therapy, post-hospitalization therapy and follow-up, and counseling for risks, benefits, and consideration of use of antimicrobials. Mikala MORAN PA-C [facility]ious Disease Images from the original note were not included. OCCUPATIONAL THERAPY [facility] Name/MRN: Jair Snyder ([id number]) Date: 01/31/2025 Attempted OT re-eval this AM, pt OOR at dialysis. Will follow and re-attempt as able. [place] Ramirez Nephrology Progress Note Following for ESRD Pt seen on HD no complaints today Bp stable Current Inpatient Medications: Reviewed on NOV. Vitals: BP 137/76 Pulse 67 Temp 36.3 C (97.3 F) Resp 20 Ht 1.778 m (5' 10) Wt 53.2 kg (117 lb 4.6 oz) SpO2 100% BMI 16.83 kg/m BLOOD PRESSURE RANGE: Systolic (24hrs), Av , Min:109 , Max:151 ; Diastolic (24hrs), Av, Min:38, Max:104 24HR INTAKE/OUTPUT: Intake/Output Summary (Last 24 hours) at 01/31/2025 1002 Last data filed at 01/30/2025 2000 Gross per 24 hour Intake 360 ml Output -- Net 360 ml Physical exam: Constitutional: NAD Cardiovascular: RR Respiratory: CTAB without w/r/r Abdomen: +bs, soft, nt, nd Ext: no lower extremity edema Data: Labs: Recent Labs 01/29/25 0337 01/30/25 0047 01/30/25 1224 01/31/25 0010 WBC 9.4 8.8 -- 9.3 HGB 8.6* 8.7* 9.8* 8.8* HCT 27.3* 28.1* 31.5* 27.9* MCV 89.2 89.2 -- 90.0 PLT 271 276 -- 278 Recent Labs 01/29/25 0337 01/30/25 0047 01/31/25 0010 NA 134* 135* 138 K 3.7 3.7 4.3 CL 94* 99 99 CO2 23 23 27 GLUCOSE 80 88 87 CALCIUM 9.8 9.6 10.0 PHOS 4.9* 3.7 4.6 MG 2.0 1.9 2.0 BUN 21 10 15 CREATININE 4.17* 2.56* 3.64* Assessment and Plan: 59-year-old male with a history of end-stage renal disease (ESRD) on a Wednesday/Wednesday/Wednesday hemodialysis (HD) schedule. His ESRD has been complicated by chronic hypotension, for which he is maintained on midodrine 15 mg every 6 hours. He remains on intermittent HD ESRD on MWF HD - seen onHD for HD today access Volume. - Bp acceptable recently - UF as tolerated with HD Mild Hyponatremia. - should improve with HD - no need for hypertonic saline - check Sna in AM Anemia in CKD. Hgb below goal - RONDA as OP - follow H&H - blood TF per primary team CKDMBD. Not on binders at this time - check phos in AM - phos gaol 3.5-5.5 PlAN Complete HD as ordered Continue hemodialysis MWF schedule. Maintain midodrine for blood pressure support. Monitor daily weights, intake/output (I/Os), and clinical volume status. Continue to monitor BUN/Creatinine and electrolyte panel post-HD sessions. No anticoagulation restarted at this time due to recent GI bleeding and supratherapeutic INR. Ensure appropriate vascular access site care. Nephrology to continue routine management and reassess HD prescription as needed based on volume status and labs. Thank you for allowing me to care for pt. Feel free to reach out with any questions or concerns Bree Molina APRN [employer] SALES ENGINEER A-G CASTING COORDINATOR [facility] [place] [phone] Pt seen and examined independently by me. I reviewed with FUEL CELL ENGINEER-[employer] SALES ENGINEER the medical history and the findings on physical examination. I discussed the patient s diagnosis and concur with the treatment plan as documented in his note. Please call [phone] or message me through [employer] with any questions or concerns. [facility] ([facility]) Inpatient Warfarin Consult HPI: Jun Snyder is a 59 y.o. male admitted on 01/19/2025 for Complication of tracheostomy (CMS/HCC) ([facility]) [J95.00] Past Medical History: Diagnosis Date Acute renal failure (ARF) ([facility]) 10/19/2019 Anemia 12/30/2021 Calcification of abdominal aorta ([facility]) 10/08/202309/[address] abd Diverticulosis 10/08/2023 ESRD on hemodialysis ([facility] [place]) [facility] [facility] 10/26/2019 Hemodialysis patient ([facility]) ([facility]) HTN (hypertension) 12/01/2022 Hypertension IgA nephropathy 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 10/26/2019 Missed vaccination due to patient refusal 10/08/2023 Has a number of non-scientific based beliefs which interfere with his understanding and acceptance of the medical benefit of vaccination. Nonrheumatic aortic valve stenosis 10/08/2023 Paroxysmal A-fib ([facility] ([facility]) 08/18/2023 Tobacco abuse 10/08/2023 Patient is on warfarin for Afib, mechanical AVR and has a goal INR 2.0 - 3.0. Warfarin is currently managed by facility, has yet to be seen by [facility]. Pt's home dose of warfarin is not yet established, managed by facility. S/sx of bleeding= internal hemorrhoids, no other bleeding noted Interacting medications= none Labs: Recent Labs 01/29/25 0337 01/30/25 0047 01/30/25 1224 01/31/25 0010 HGB 8.6* 8.7* 9.8* 8.8* HCT 27.3* 28.1* 31.5* 27.9* PLT 271 276 -- 278 Recent Labs 01/31/25 0010 INR 2.2* Date INR Dose 01/31 2.2 0.5mg 01/30 2.5 HOLD 01/29 2.4 Held 01/28 2.2 0.5mg 01/27 1.9 1mg 01/26 1.8 1 mg 01/25 1.7 0.5 mg 01/24 1.5 1mg 01/23 2.0 HOLD 01/22 8.1/3.1 HOLD vitamin K 2.5mg PO 01/21 7.9 Held 01/20 --- Held 01/19 2.7 HOLD Assessment/Plan: 1. INR is therapeutic. Line inserted yesterday so will give 0.5mg warfarin today 2. Monitor for s/s of bleeding and drug interactions. Will adjust dose accordingly 3. Will facilitate f/u at [facility] upon discharge Tiffanie Dial [facility] is available daily [phone] via Epic Chat. If no response on Enable [employer] Chat then please page [phone]. Hospitalist Progress Note Subjective: Admit Date: 01/19/2025 PCP: Leilani Troncoso Room#: 1C-144/1C-144 A Chief Complaint Patient presents with Tracheostomy Tube Change Brief Hospital course: Jun Snyder is a 59 y.o. male who who presented to [facility] 01/19 after inadvertent removal of his tracheostomy. He was transferred to [facility] ICU for surgical evaluation. On arrival he was maintaining appropriate O2 saturations on room air and the decision was made to leave the tracheostomy out. Able to be transferred out of ICU later that day. On 01/20 critical care and GI were consulted due to rectal bleeding. At that time patient determined to be stable to remain on GMF. On the morning of 01/21, GI recommended ICU transfer for EGD which revealed non-bleeding duodenal ulcer. At that time patient's sacral wound was noted to be bleeding. Have been trending INR's and H&H, currently stable. Received one unit of FFP per ZOË panel on 01/26 with no further evidence of bleed. Resumed Heparin ggt bridge to warfarin. Underwent HD successfully. hemodynamically stable. Transferred out to F 01/27 ID following for sacral osteomyelitis, s/p wound debridement to bone on 01/02, cultures grew E faecalis and Clostridium, continue with renally dosed ampicillin sulbactam for 6 weeks course through 02/13/2025, needs tunneled line, status post IR CVC tunneled line on 01/29 Nephrology following, on dialysis E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 following PT recommends SNF Interval History: 01/31/2025-No overnight issues. Patient is seen and examined Patient is resting in his bed Dialysis today Denies any new acute complaints Labs reviewed, ESRD picture, hemoglobin 8.8, stable Case and plan discussed with patient and bedside nurse. All questions answered. Past Medical History: Past Medical History: Diagnosis Date Acute renal failure (ARF) ([facility]) 10/19/2019 Anemia 12/30/2021 Calcification of abdominal aorta (HCC) 10/08/202309/[address] abd Diverticulosis 10/08/2023 ESRD on hemodialysis (CMS/HCC) ([facility]) 10/26/2019 Hemodialysis patient ([facility]) ([facility]) HTN (hypertension) 12/01/2022 Hypertension IgA nephropathy 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 10/26/2019 Missed vaccination due to patient refusal 10/08/2023 Has a number of non-scientific based beliefs which interfere with his understanding and acceptance of the medical benefit of vaccination. Nonrheumatic aortic valve stenosis 10/08/2023 Paroxysmal A-fib ([facility]) ([facility]) 08/18/2023 Tobacco abuse 10/08/2023 Adult diet Dysphagia - Pureed 24HR INTAKE/OUTPUT: Intake/Output Summary (Last 24 hours) at 01/31/2025 0836 Last data filed at 01/30/20251999 Gross per 24 hour Intake 360 ml Output -- Net 360 ml LABS: CBC: Recent Labs 01/29/2533601/30/25 0047 01/30/25 1224 01/31/25 0010 WBC 9.4 8.8 -- 9.3 RBC 3.06* 3.15* -- 3.10* HGB 8.6* 8.7* 9.8* 8.8* HCT 27.3* 28.1* 31.5* 27.9* MCV 89.2 89.2 -- 90.0 RDW 19.0* 18.9* -- 19.2* PLT 271 276 -- 278 BMP: Recent Labs 01/29/2533601/30/25 0047 01/31/25 0010 NA 134* 135* 138 K 3.7 3.7 4.3 CL 94* 99 99 CO2 23 23 27 BUN 21 10 15 CREATININE 4.17* 2.56* 3.64* GLUCOSE 80 88 87 CALCIUM 9.8 9.6 10.0 ANIONGAP 17* 13 12 LIVER PROFILE: Recent Labs 01/31/25 0010 AST 31 ALT 11 BILITOT 0.8 ALKPHOS 218* PROT 7.3 PT/INR: Recent Labs 01/29/2533601/30/25 0047 01/31/25 0010 PROTIME 24.0* 24.9* 22.4* INR 2.4* 2.5* 2.2* CARDIAC ENZYMES: No results for input(s): TROPONINI in the last 72 hours. Procalcitonin: No results found for: PROCAL COVID-19 PCR: No results for input(s): COVID19 in the last 72 hours. Objective: Vitals: BP 129/70 Pulse 69 Temp 36.3 C (97.3 F) Resp 20 Ht 5' 10 (1.778 m) Wt 117 lb 4.6 oz (53.2 kg) SpO2 100% BMI 16.83 kg/m Pulse Ox: SpO2 Av.7 % Min: 92 % Max: 100 % Supplemental O2: O2 Flow Rate (L/min): 2 L/min Physical Exam HENT: Head: Normocephalic and atraumatic. Mouth/Throat: Mouth: Mucous membranes are moist. Cardiovascular: Rate and Rhythm: Normal rate. Pulmonary: Effort: Pulmonary effort is normal. Abdominal: Palpations: Abdomen is soft. Skin: General: Skin is warm and dry. Neurological: Mental Status: He is alert and oriented to person, place, and time. Psychiatric: Mood and Affect: Mood normal. Medications: Scheduled PRN ampicillin-sulbactam, 3,000 mg, IntraVENous, q24h collagenase, , Topical, Daily Lidocaine, 1 patch, Topical, Daily metoprolol tartrate, 25 mg, Per G Tube, BID midodrine, 10 mg, Oral, BID PRN medications: acetaminophen, collagenase, dextrose, dextrose, glucagon (rDNA), glucose, ipratropium-albuterol, melatonin, metoprolol, naloxone, oxyCODONE OR oxyCODONE, prochlorperazine, sodium chloride, sodium chloride Continuous sodium chloride, 20 mL/hr, Last Rate: 20 mL/hr (01/30/251837) Assessment Data: (CAT1) Reviewed 2 notes from different specialty or health system (each=1). (CAT1) Reviewed 3 or more labs/studies previously ordered by me not previously counted (each=1, panels count as 1). (CAT1) Ordered 3 or more new labs and/or studies (each=1, panels count as 1). (LOW: 2x CAT1 or independent historian MOD: 3x CAT1 or 1x CAT3 EXTENSIVE: 3x CAT1 and 1x CAT3) Acute, acute on chronic, unstable/uncontrolled chronic problems/diagnoses: GIB w/ bleeding worsened by Coumadin - Internal hemorrhoids Stage V Sacral Wound with osteomyelitis POA Supratherapeutic INR on Coumadin Acute on Chronic Anemia w/ blood loss anemia Aortic Valve Stenosis status post aortic valve replacement on coumadin Chronic Respiratory Failure with Hypoxia s/p Trach - now removed ESRD on HD Chronic Hypotension Afib on Coumadin Necrotic L toes Stable chronic problems affecting care, new non-acute diagnoses: ESRD Hypertension IgA nephropathy Paroxysmal A-fib Plan As a result of the above findings & factors, the following mgmt was pursued: - Seen by GI, s/p colonoscopy -Dose coumadin per [facility], INR daily -Follow HH, transfuse for Hg <7.00 -Wound care -HD per Nephrology MWF -Unasyn 6 weeks until 02/13 for sacral wound with OM by ID -S/p tunneled central line placement -E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 follow, dysphagia diet -PT OT DC planning - am labs, replace lytes prn - PT/OT/CM/SW - delirium precautions: increase activity, limit nighttime disturbances, and avoid anticholinergic meds, benzos, etc - DVT prophylaxis: encourage ambulation, GI bleed Complexity: Acute illness or injury posing a threat to life or body function (HIGH). Risk: Advance Directive: Full Code Anticipated Discharge - Date -1 to 3 days - Location - Skilled Facility - Pending the following -clinical course, placement Total time spent (which include face to face and non face to face encounters) : 35 minutes Extended Emergency Contact Information Primary Emergency Contact: Omar Snyder Mobile Relation: Child Secondary Emergency Contact: Toma Mcneil Mobile Relation: Partner Barb Dawkins MD Division of Hospital Medicine Inpatient Medical Services[place] Anticoagulation Management Service ([facility]) Inpatient Warfarin Consult HPI: Jun Snyder is a 59 y.o. male admitted on 01/19/2025 for Complication of tracheostomy (CMS/HCC) ([facility]) [J95.00] Past Medical History: Diagnosis Date Acute renal failure (ARF) ([facility]) 10/19/2019 Anemia 12/30/2021 Calcification of abdominal aorta (HCC) 10/08/202309/[address] abd Diverticulosis 10/08/2023 ESRD on hemodialysis ([facility]) ([facility]) 10/26/2019 Hemodialysis patient ([facility]) ([facility]) HTN (hypertension) 12/01/2022 Hypertension IgA nephropathy 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 10/26/2019 Missed vaccination due to patient refusal 10/08/2023 Has a number of non-scientific based beliefs which interfere with his understanding and acceptance of the medical benefit of vaccination. Nonrheumatic aortic valve stenosis 10/08/2023 Paroxysmal A-fib ([facility] ([facility]) 08/18/2023 Tobacco abuse 10/08/2023 Patient is on warfarin for Afib, mechanical AVR and has a goal INR 2.0 - 3.0. Warfarin is currently managed by facility, has yet to be seen by [facility]. Pt's home dose of warfarin is not yet established, managed by facility. S/sx of bleeding= concern for GIB, anemia Interacting medications= unasyn, Vitamin K 2.5 mg PO administered 01/22. Labs: Recent Labs 01/28/25 0516 01/29/25 0337 01/30/25 0047 01/30/25 1224 HGB 8.5* 8.6* 8.7* 9.8* HCT 26.3* 27.3* 28.1* 31.5* PLT 240 271 276 -- Recent Labs 01/30/25 0047 INR 2.5* Date INR Dose 01/30 2.5 HOLD 01/29 2.4 Held 01/28 2.2 0.5mg 01/27 1.9 1mg 01/26 1.8 1 mg 01/25 1.7 0.5 mg 01/24 1.5 1mg 01/23 2.0 HOLD 01/22 8.1/3.1 HOLD vitamin K 2.5mg PO 01/21 7.9 Held 01/20 --- Held 01/19 2.7 HOLD Assessment/Plan: 1. INR is therapeutic. Warfarin was held yesterday for planned tunneled line. Going for this procedure today, will continue to hold warfarin. Please notify [facility] when able to resume warfarin. 2. Monitor for s/s of bleeding and drug interactions. Will adjust dose accordingly 3. Will facilitate f/u at [facility] upon discharge Fatuma Odonnell RPh [facility] is available daily [phone] via [employer] Chat. If no response on Enable [employer] Chat then please page [phone]. Images from the original note were not included. OCCUPATIONAL THERAPY [facility] Name/MRN: Jair Snyder ([id number]) Date: 01/30/2025 Attempted OT services however, Pt is currently OOR-at specials for IR line- Per RN. Will re attempt for pre cert as schedule permits. VICKY Bates Cosigned by Josue Gustafson OT at 01/30/2025 2:15 PM EDT Speech-Language Pathology Patient is off of the unit for tunnel catheter placement. Will reschedule dysphagia treatment session for 01/31/2025 and determine if patient is a candidate for diet upgrade. Christina Limon MS, CCC/E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 Nutrition Assessment Type and Reason for Visit: Reassess Nutrition Recommendations/Plan: Pt continues with inadequate PO intake on a pureed diet. -->Recommend providing nocturnal tube feed via PEG of Nepro @ 50 mL/hr x 12 hours (8pm-8am) to provide 50% of pt's calorie and protein needs, in addition to PO pureed diet during the day. TF would provide 1062 kcals, 48.5 gm protein and 436 mL free H2O. For now, per MNT protocol will trial Nepro once daily. Suspect weights inaccurate d/t envella bed. Monitor weight, labs, I/Os, skin integrity and overall nutrition status. RD to follow up weekly. Malnutrition Assessment: Malnutrition Status: Severe malnutrition (per RD assessment 01/19, no noted MD documentation at this time) Context: Chronic Illness Nutrition Assessment: 59yo M with PMHx ESRD on HD (since 09/2024), Tracheostomy (11/14/24) & PEG (11/16/24), HTN, pA-fib, R occipital ICH, Tobacco Abuse, Diverticulosis, IgA Nephropathy, Sacral Wound (s/p bedside debridement with exposed bone 01/02/25) and Severe who remains admitted after presenting to [facility] on 01/19 after inadvertent removal of his tracheostomy. He was transferred to [facility] ICU for surgical evaluation, however pt was maintaining appropriate O2 saturations on room air and the decision was made to leave the tracheostomy out. Pt transferred to [facility] later that day (01/19). Course c/b acute anemia with rectal bleeding in the setting of supratherapeutic INR.GI was consulted and rec'd transfer back to ICU for EGD on 01/21 which revealed non-bleeding duodenal ulcer. At that time patient's sacral wound was noted to be bleeding--General Surgery consulted w/ no plans for acute intervention. S/p wound vac placed by Wound Care 01/23. Underwent colonoscopy 01/24 which only showed diverticulosis in the sigmoid colon and internal hemorrhoids. Have been trending INR's and H&H, currently stable. Went into afib with RVR evening of 01/25, now NSR. Required 1 U pRBCs overnight 01/25. Resumed Heparin ggt bridge to warfarin. Tolerating HD on MWF schedule with Nephrology following. Transferred to [facility] 01/27. ID continues following for sacral osteomyelitis and recs IV Unasyn x 6 weeks--> stop date 02/13. Course c/b anxiousness and paranoia, often refusing care and wound dressing changes. In terms of nutrition, pt was only receiving nutrition via PEG SHADOWGRAPH OPERATOR. He was NPO 01/19, Nepro @ 50mls/hr initiated 01/20 which ran until pt was made NPO/CLD for colonoscopy prep 01/23. Remained NPO 01/24, underwent MBSS 01/25 with recs for pureed/thin which remains his current diet with E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 following and recommending the same. PO intake has been poor per flowsheets, pt mostly eating 1-25% meals with occasional 26-50% or 51-75% of 1 meal. Suspect bed weights inaccurate this admission d/t envella bed. Pt with no updated EDW since 09/28/24 86kg (189.2#), 09/13/24 90kg (198#), 04/06/24 90.5kg (199.1#). RD unable to speak with pt d/t working with other service x 2. Did observe pt via window and he appears very cachectic. Spoke with aid who reports pt has taken multiple hours to eat his breakfast, did not want anyone to remove it from his room. Per RN, pt continues to be anxious and restless. He is on an envella bed. Estimated Daily Nutrient Needs: Energy Requirements Based On: Kcal/kg Weight Used for Energy Requirements: Current Weight for Energy Calculation (kg): 58.9 kg Total Energy Requirements (kcals/day): 2061-2356kcals/day Weight Used for Protein Requirements: Current Weight in Kg Used for Protein Requirements: 58.9 kg Estimated Total Protein (g/day): 82-106gm pro/day- + wounds and ESRD/HD Estimated Daily Total Fluid (ml/day): per MD recommendations Nutrition Related Findings: Labs: Na 135, Cr 2.56, Meds: IVF Orientation Level: Oriented X4, Cognition: Poor judgement, Poor attention/concentration, Best Verbal Response: Oriented, Patient Behaviors/Mood: Anxious, Restless Teeth: Missing teeth Swallow: Able to swallow solids and liquids without difficulty Kee Scale Score: 15. Wound Type: Venous Stasis, Pressure Injury, Stage IV, Wound Vac (Wound Care following for Sacrum: Pressure Injury Stage 4 with Vac and Left toes 1-4: Arterial Ulcer) Net IO Since Admission: 12,167.5 mL [01/30/25 1245] Gastrointestinal (WDL): Exceptions to WDL Bowel Sounds (All Quadrants): Active Abdomen Inspection: Flat, Gastrostomy tube Last BM Date: 01/22/25, Stool Appearance: Unable to assess, Stool Color: Unable to assess Edema: Generalized Edema: Other (Comment) (none), RUE Edema: None, LUE Edema: None, RLE Edema: None, LLE Edema: None Oxygen Therapy: None (Room air), Current Nutrition Therapies: Adult diet Dysphagia - Pureed Current Oral Intake Average Meal Intake: 1-25%, 26-50%, 51-75% Average Supplements Intake: None Ordered Anthropometric Measures: Height: 177.8 cm (5' 10) Current Body Weight: 53.1 kg (117 lb 1 oz) (5/5 bed) Weight Source: Bed Scale Admission Body Weight: 58.5 kg (129 lb) (bedscale obtained 01/[address], no admit weight was obtained) Usual Body Weight: (per EPIC review --> 10/08/23: 207#, 11/12: 208#, 08/28: 206#, 10/04/24: 192#, 10/15: 207# bedscale, 10/31: 200#, 11/28: 161#, 01/18: 142#) [place] Body Weight (lbs) (Calculated): 166 lbs [place] Body Weight (Kg) (Calculated): 75 kg % [place] Body Weight (Calculated): 70.5 % BMI (kg/m2) (Calculated): 16.8 Weight Adjustment For: No Adjustment BMI Categories: Normal Weight (BMI 18.5-24.9) Nutrition Interventions: Nutrition Education/Counseling: No recommendation at this time Coordination of Nutrition Care: Continue to monitor while inpatient, Speech Therapy Plan of Care discussed with: pt, RN and ICU team Goals: Previous Goal Met: Progress towards Goal(s) Declining Goals: Meet at least 75% of estimated needs, by next RD assessment Nutrition Monitoring and Evaluation: Behavioral-Environmental Outcomes: None Identified Food/Nutrient Intake Outcomes: Food and Nutrient Intake, Supplement Intake Physical Signs/Symptoms Outcomes: Biochemical Data, Nutrition Focused Physical Findings, Skin, Weight, Chewing or Swallowing, GI Status, Meal Time Behavior Discharge Planning: Too soon to determine Marilu Pollock RD Contact: *[phone] Images from the original note were not included. PHYSICAL THERAPY [facility] Treatment Note Name/MRN: Jair Snyder ([id number]) Date of : 1965 Age: 59 y.o. Room/Bed: 1C-144/1C-144 A Discharge Recommendation: Jail Facility Other: tbd Assessment Pt requires mod to max assist for bed mobility. No PT goals met this session. Recommend SNF at discharge. Subjective Pt is supine in the envella bed, agrees to PT. Pain: Michel-Nolasco Pain Ratin = Hurts even more Pain Location: back, butocks Medical Precautions: No active isolations Proper PPE donned/doffed in accordance with facility standards. Fall Risk: Roque Fall Risk Score: 60 (Medium Risk) Roque Fall Risk Score: 60 (High Risk) Overall Cognitive Status: Exceptions - Safety judgement: decreased awareness of need for assistance and decreased awareness of need for safety - Problem solving: decreased awareness of errors Overall Orientation Status: Oriented to Place and Oriented to Person Family/Caregiver Present: none Objective Bed Mobility Supine to sit: Mod Assist Sit to supine: Max Assist Rolling to right: Min Assist Rolling to left: Min Assist Scooting: Mod Assist Balance During Session: Pt sat at EOB with min assist to SBA for sitting balance while at EOB Plan Continue acute PT per plan of care. Safety/Education Safety Safety Devices in place: All fall risk precautions in place, call light within reach, left in bed, patient at risk for falls, nurse notified, and no alarms engaged upon entry Restraints: No Education Education Given To: patient Education Provided: PT Role, PT Goals, Plan of Care, and Discharge Recommendations Education Method: Verbal Barriers to Learning: None Education Outcome: Continued Education Needed Outcome Measures AM-PAC AM-PAC Inpatient Mobility Raw Score (No Stairs) : 7 JH-HLM JH-HLM Score: Sat at edge of bed Goals Patient Stated Goal: to get stronger and walk Encounter Problems Encounter Problems (Active) Balance Patient will maintain static standing balance for 3 minutes with min assist in order to demonstrate decreased risk of falling. (Not Addressed) Start: 01/19/25 Expected End: 02/16/25 Mobility Patient will ambulate 25 feet with min assist and rolling walker in order to improve safety and independence with mobility. (Not Addressed) Start: 01/19/25 Expected End: 02/16/25 Pain - Adult Transfers Patient will perform bed mobility with SBA in order to improve independence and prepare for out of bed mobility. (Progressing) Start: 01/19/25 Expected End: 02/16/25 Patient will complete functional transfer with rolling walker with min assist in order to prepare for ambulation. (Not Addressed) Start: 01/19/25 Expected End: 02/16/25 Therapy Time Individual Co-treatment Time In 1115 Time Out 1142 Minutes 27 Timed Code Treatment Minutes: (2FA) Jocelin Ramirez PTA Cosigned by Betty Grady PT at 01/30/2025 1:28 PM EDT Patient receiving other care, will attempt smoking cessation counseling at a later date. Images from the original note were not included. [facility] - Infectious Diseases Advanced Practice Provider Progress Note Subjective: Following patient for sacral OM. Notes reviewed. Patient reports sacral wound is sore. Denies SOB and cough. Denies fever, chills, CP, N/V, abdominal pain, and any new bowel issues. No other new exacerbating or alleviating factors. Objective: Vitals: Patient Vitals for the past 24 hrs: BP Temp Temp src Pulse Resp SpO2 Height 01/30/25 1002 -- -- -- -- -- -- 1.778 m (5' 10) 01/30/25 0737 146/97 (!) 35.8 C (96.4 F) Temporal 73 15 95 % -- 01/30/25 0513 -- -- -- -- 15 -- -- 01/30/25 0513 130/69 36.6 C (97.8 F) Temporal 79 -- 96 % -- 01/30/25 0051 134/65 36.5 C (97.7 F) Temporal 86 15 97 % -- 01/29/25 2029 115/67 37.1 C (98.7 F) Temporal 83 16 94 % -- 01/29/25 1604 -- 36.6 C (97.9 F) Temporal 79 24 94 % -- 01/29/25 1412 132/71 -- -- 78 (!) 10 -- -- 01/29/25 1200 126/73 36.4 C (97.5 F) -- 74 -- -- -- 01/29/25 1147 124/74 -- -- 73 -- -- -- 01/29/25 1131 91/53 -- -- 67 -- -- -- 01/29/25 1116 (!) 89/51 -- -- 67 -- -- -- 01/29/25 1100 97/58 -- -- 71 -- -- -- Physical Exam: Physical Exam Vitals and nursing note reviewed. Constitutional: General: He is not in acute distress. Appearance: Normal appearance. He is normal weight. He is not ill-appearing. Comments: NAD laying in bed. Interactive, cooperative, conversant. Thin HENT: Head: Normocephalic and atraumatic. Right Ear: External ear normal. Left Ear: External ear normal. Nose: Nose normal. Mouth/Throat: Mouth: Mucous membranes are moist. Pharynx: Oropharynx is clear. Eyes: Extraocular Movements: Extraocular movements intact. Conjunctiva/sclera: Conjunctivae normal. Pupils: Pupils are equal, round, and reactive to light. Neck: Comments: Neck incision healing with scar Cardiovascular: Rate and Rhythm: Normal rate and regular rhythm. Pulses: Normal pulses. Heart sounds: Normal heart sounds. Pulmonary: Effort: Pulmonary effort is normal. Breath sounds: Normal breath sounds. No wheezing, rhonchi or rales. Comments: Breathing unlabored on room air. No wheezes, rales, rhonchi Abdominal: General: Abdomen is flat. Bowel sounds are normal. There is no distension. Palpations: Abdomen is soft. Tenderness: There is no abdominal tenderness. There is no guarding. Musculoskeletal: Right lower leg: No edema. Left lower leg: No edema. Skin: General: Skin is warm and dry. Comments: Sacral wound images reviewed. Wound vac in place with serosanguinous drainage in cannister L toes 1-4 with dry gangrene LUE AVF Neurological: General: No focal deficit present. Mental Status: He is alert and oriented to person, place, and time. Psychiatric: Mood and Affect: Mood normal. Behavior: Behavior normal. Labs: Recent Labs 01/28/25 0632 01/29/25 0337 01/30/25 0047 NA 137 134* 135* K 3.6 3.7 3.7 CL 98 94* 99 CO2 26 23 23 BUN 14 21 10 CREATININE 3.37* 4.17* 2.56* GLUCOSE 82 80 88 CALCIUM 10.0 9.8 9.6 Recent Labs 01/28/25 0516 01/29/25 0337 01/30/25 0047 WBC 9.8 9.4 8.8 HGB 8.5* 8.6* 8.7* HCT 26.3* 27.3* 28.1* PLT 240 271 276 Micro: 01/22 C auris screen: negative 01/22 A baumannii screen: negative Previous (SS[facility]) 01/02- sacral wound cx- E faecalis (Amp-S), skin ila, Clostridium clostrioforme 01/01- blood cx- 2/2 NG 12/30- blood cx- 2/2 NGTD 12/30- sputum cx- MSSA, resp ila 12/25- blood cx- 2/2 negative 12/14- sputum cx- MSSA, resp ila 12/14- MRSA pcr- MSSA 12/11- sputum cx- MSSA, resp ila Previous (ACH) 11/28- L pleural fluid- negative 11/16- abd fluid eswab- ASE faecalis 11/16- peritoneal cx- C glabrata 11/15- RPP- negative 11/15- sputum cx- resp ila 11/14- BAL pneumonia PCR- negative 11/14- BAL cx- resp ila 11/12- C diff PCR- negative 11/12- GI PCR- negative 11/02- MRSA PCR- MSSA 11/02- RPP- negative 11/01- pneumonia PCR- MSSA, RSV 11/01- BAL cx- MSSA, resp ila 11/01- blood cx- 2/2 negative 10/25- H pylori ag- negative 10/19- BAL cx- resp ila 10/19- BAL pneumonia PCR- coronavirus, RSV 10/16- BAL cx- resp ila 10/11- GI PCR- negative 10/03- blood cx- 2/2 negative 10/03- 4plex- RSV Lines: AVF PIV Radiography/Echo/Other: 01/19 CXR 1. Lingular infiltrate. 2. Prominence of the central pulmonary vasculature consistent with mild congestive heart failure/fluid overload. 3. Overall significant improvement in the aeration of the lungs when compared to the previous study. 01/20 CTA Abd/Pelvis 1. Imaging does not identify the site and/or source of the GI bleed. There is no intraluminal IV contrast appreciated. There are multiple loops of fluid-filled small and large bowel. The rectum is mildly distended with intraluminal fluid, consider diarrhea. 2. There is a large posterior decubitus ulcer which extends to the sacrum and coccyx with locules of air, fluid, and edema, correlate with clinical physical exam. This is new compared to 11/16/2024. 3. Colonic diverticulosis. 4. Renal atrophy. This patient has end-stage renal disease and is receiving dialysis. 5. Cholelithiasis. The gallbladder is decompressed with wall thickening measuring 6-7 mm (differential includes poor distention, systemic process, cholecystitis). Consider nuclear medicine HIDA scan and/or ultrasound. 6. Bilateral small pleural effusions with compressive atelectasis and/or infiltrate. Cardiomegaly. 7. Other: IVC filter. Percutaneous gastrostomy tube. Additional findings, as above. 01/24 CXR 1. Median sternotomy and valve repair. 2. Infiltrate in the lingula of the left upper lobe. 3. Prominence of the central pulmonary vasculature consistent with mild congestive heart failure/fluid overload. 4. The aeration of the lungs has improved mildly when compared to the previous study. 01/25 MBS No vocal cord penetration or airway aspiration. Antimicrobials, Start/End Dates: Anidulafungin: 11/27-11/28 Micafungin: 11/28- 12/10 Linezolid: 12/30-12/31 Pip/tazo: 12/30-01/01 Vancomycin: 12/31- 01/03 Meropenem: 01/01-01/04 Amp-Sulbactam: 01/06- present Impression: Sacral wound infection w osteomyelitis S/p bedside debridement w/ exposed bone (01/02) sacral wound cx: ASEC, Clostridium Tracheostomy dislodgement BRBPR S/p EGD 01/21- with non-bleeding duodenal ulcer. S/p colonoscopy 01/24- sigmoid diverticulosis & internal hemorrhoids; no active bleeding. Leukocytosis- resolved Hx MSSA LRTIs Hx Acute hypoxic respiratory failure s/p trach Hx C glabrata, ASEC peritonitis s/p treatment (10/2024) Pneumoperitoneum s/p ex-lap, EGD, & abhishek gastrostomy tube placement (11/16/24) Hx GIB s/p GDA embolization (10/14/24) PEA arrest x2 (10/14/24, 11/01/24) Severe aortic stenosis s/p AVR (23mm [place] mechanical- 10/12/24) LLE DVT's c/b ishemic L foot s/p IVC filter ESRD on HD via LUE AVF MWF Afib on amiodarone Plan: Following patient for sacral osteomyelitis s/p wound debridement to bone 01/02. Cx + E faecalis and Clostridium Plan to continue renally-dosed Amp-Sulbactam x6 week course through 02/13/25. OPAT complete and under media tab. Patient will need tunneled line placed prior to discharge for prolonged course of antibiotic- defer ordering to IM given concomitant anticoagulation. Monitor infectious parameters. Continue wound care. ID will continue to follow. Based on diagnoses and management, combination of acute and chronic problems, exacerbations and/or acuity, this visit should be considered to be of moderate complexity. Mikala MORAN PA-C [facility] Hospital[place] Progress Note Subjective: Admit Date: 01/19/2025 PCP: Leilani Troncoso Room#: 1C-144/1C-144 A Chief Complaint Patient presents with Tracheostomy Tube Change Brief Hospital course: Jun Snyder is a 59 y.o. male who who presented to [facility] 01/19 after inadvertent removal of his tracheostomy. He was transferred to [facility] ICU for surgical evaluation. On arrival he was maintaining appropriate O2 saturations on room air and the decision was made to leave the tracheostomy out. Able to be transferred out of ICU later that day. On 01/20 critical care and GI were consulted due to rectal bleeding. At that time patient determined to be stable to remain on F. On the morning of 01/21, GI recommended ICU transfer for EGD which revealed non-bleeding duodenal ulcer. At that time patient's sacral wound was noted to be bleeding. Have been trending INR's and H&H, currently stable. Received one unit of FFP per ZOË panel on 01/26 with no further evidence of bleed. Resumed Heparin ggt bridge to warfarin. Underwent HD successfully. hemodynamically stable. Transferred out to [facility] 01/27 ID following for sacral osteomyelitis, s/p wound debridement to bone on 01/02, cultures grew E faecalis and Clostridium, continue with renally dosed ampicillin sulbactam for 6 weeks course through 02/13/2025, needs tunneled line, status post IR CVC tunneled line on 01/29 Nephrology following, on dialysis E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 following PT recommends SNF Interval History: 01/30/2025-No overnight issues. Patient is seen and examined He is resting in his bed, not in acute distress, states his chest is sore because of CPR before, otherwise denies any new acute complaints Labs reviewed, ESRD picture, hemoglobin 8.7, stable Case and plan discussed with patient and bedside nurse. All questions answered. Past Medical History: Past Medical History: Diagnosis Date Acute renal failure (ARF) ([facility]) 10/19/2019 Anemia 12/30/2021 Calcification of abdominal aorta ([facility]) 10/08/202309/[address] abd Diverticulosis 10/08/2023 ESRD on hemodialysis ([facility] [place]) ([facility]) 10/26/2019 Hemodialysis patient ([facility] [place]) ([facility]) HTN (hypertension) 12/01/2022 Hypertension IgA nephropathy 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 10/26/2019 Missed vaccination due to patient refusal 10/08/2023 Has a number of non-scientific based beliefs which interfere with his understanding and acceptance of the medical benefit of vaccination. Nonrheumatic aortic valve stenosis 10/08/2023 Paroxysmal A-fib ([facility]) ([facility]) 08/18/2023 Tobacco abuse 10/08/2023 Adult diet Dysphagia - Pureed 24HR INTAKE/OUTPUT: Intake/Output Summary (Last 24 hours) at 01/30/2025 0946 Last data filed at 01/29/2025 1616 Gross per 24 hour Intake 600 ml Output -- Net 600 ml LABS: CBC: Recent Labs 01/28/25 0516 01/29/25 0337 01/30/25 0047 WBC 9.8 9.4 8.8 RBC 3.01* 3.06* 3.15* HGB 8.5* 8.6* 8.7* HCT 26.3* 27.3* 28.1* MCV 87.4 89.2 89.2 RDW 19.0* 19.0* 18.9* PLT 240 271 276 BMP: Recent Labs 01/28/25 0632 01/29/25 0337 01/30/25 0047 NA 137 134* 135* K 3.6 3.7 3.7 CL 98 94* 99 CO2 26 23 23 BUN 14 21 10 CREATININE 3.37* 4.17* 2.56* GLUCOSE 82 80 88 CALCIUM 10.0 9.8 9.6 ANIONGAP 13 17* 13 LIVER PROFILE:No results for input(s): AST, ALT, BILITOT, ALKPHOS, PROT in the last 72 hours. No lab exists for component: LABALBU PT/INR: Recent Labs 01/28/25 0516 01/29/25 0337 01/30/25 0047 PROTIME 21.9* 24.0* 24.9* INR 2.2* 2.4* 2.5* CARDIAC ENZYMES: No results for input(s): TROPONINI in the last 72 hours. Procalcitonin: No results found for: PROCAL COVID-19 PCR: No results for input(s): COVID19 in the last 72 hours. Objective: Vitals: BP 146/97 (BP Location: Right arm, Patient Position: Sitting) Pulse 73 Temp (!) 35.8 C (96.4 F) (Temporal) Resp 15 Ht 5' 10 (1.778 m) Wt 117 lb 1 oz (53.1 kg) SpO2 95% BMI 16.80 kg/m Pulse Ox: SpO2 Av.2 % Min: 94 % Max: 97 % Supplemental O2: O2 Flow Rate (L/min): 2 L/min Physical Exam HENT: Head: Normocephalic and atraumatic. Mouth/Throat: Mouth: Mucous membranes are moist. Cardiovascular: Rate and Rhythm: Normal rate. Pulmonary: Effort: Pulmonary effort is normal. Abdominal: Palpations: Abdomen is soft. Skin: General: Skin is warm and dry. Neurological: Mental Status: He is alert. Psychiatric: Mood and Affect: Mood normal. Medications: Scheduled PRN ampicillin-sulbactam, 3,000 mg, IntraVENous, q24h collagenase, , Topical, Daily Lidocaine, 1 patch, Topical, Daily metoprolol tartrate, 25 mg, Per G Tube, BID midodrine, 10 mg, Oral, BID PRN medications: acetaminophen, collagenase, dextrose, dextrose, glucagon (rDNA), glucose, ipratropium-albuterol, melatonin, metoprolol, naloxone, oxyCODONE OR oxyCODONE, prochlorperazine, sodium chloride, sodium chloride Continuous sodium chloride, 20 mL/hr, Last Rate: 20 mL/hr (01/25/252003) Assessment Data: (CAT1) Reviewed 2 notes from different specialty or health system (each=1). (CAT1) Reviewed 3 or more labs/studies ordered by another provider not previously counted (each=1, panels count as 1). (CAT1) Ordered 3 or more new labs and/or studies (each=1, panels count as 1). (LOW: 2x CAT1 or independent historian MOD: 3x CAT1 or 1x CAT3 EXTENSIVE: 3x CAT1 and 1x CAT3) Acute, acute on chronic, unstable/uncontrolled chronic problems/diagnoses: GIB w/ bleeding worsened by Coumadin - Internal hemorrhoids Stage V Sacral Wound with osteomyelitis POA Supratherapeutic INR on Coumadin Acute on Chronic Anemia w/ blood loss anemia Aortic Valve Stenosis status post aortic valve replacement on coumadin Chronic Respiratory Failure with Hypoxia s/p Trach - now removed ESRD on HD Chronic Hypotension Afib on Coumadin Necrotic L toes Stable chronic problems affecting care, new non-acute diagnoses: ESRD Hypertension IgA nephropathy Paroxysmal A-fib Plan As a result of the above findings & factors, the following mgmt was pursued: - Seen by GI, s/p colonoscopy -Dose coumadin per SAILAJA, INR daily -Follow HH, transfuse for Hg <7.00 -Wound care -HD per Nephrology MWF -Unasyn 6 weeks until 02/13 for sacral wound with OM by ID -S/p tunneled central line placement -E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 follow, dysphagia diet -PT OT DC planning - am labs, replace lytes prn - PT/OT/CM/SW - delirium precautions: increase activity, limit nighttime disturbances, and avoid anticholinergic meds, benzos, etc - DVT prophylaxis: encourage ambulation, GI bleed Complexity: Acute illness or injury posing a threat to life or body function (HIGH). Risk: Advance Directive: Full Code Anticipated Discharge - Date -1 to 3 days - Location - Skilled Facility - Pending the following -clinical course, placement Total time spent (which include face to face and non face to face encounters) : 35.5 minutes Extended Emergency Contact Information Primary Emergency Contact: Omar Snyder Mobile Relation: Child Secondary Emergency Contact: Toma Mcneil Mobile Relation: Partner Barb Dawkins MD Division of Hospital Medicine Inpatient Medical Services[place] Nephrology Progress Note Mr. Jun Snyder is a 59-year-old male with a history of end-stage renal disease (ESRD) on a Wednesday/Wednesday/Wednesday hemodialysis (HD) schedule. His ESRD has been complicated by chronic hypotension, for which he is maintained on midodrine 15 mg every 6 hours. He remains on intermittent HD with nephrology following, and no acute dialysis-related complications have been noted during this hospitalization. His chronic renal failure was confirmed on prior imaging showing renal atrophy. Management continues with a focus on volume support, monitoring of electrolytes, and hemodynamic stability, with adjustments made as needed based on his clinical course-S/P HD yesterday BP 146/97 (BP Location: Right arm, Patient Position: Sitting) Pulse 73 Temp (!) 35.8 C (96.4 F) (Temporal) Resp 15 Ht 1.778 m (5' 10) Wt 53.1 kg (117 lb 1 oz) SpO2 95% BMI 16.80 kg/m Input / Output: 24 HR: Intake/Output Summary (Last 24 hours) at 01/30/2025 0908 Last data filed at 01/29/2025 1616 Gross per 24 hour Intake 600 ml Output -- Net 600 ml Physical Exam Alert and oriented x 1 NAD Neck: no JVD CV: RRR Lungs: CTA bilaterally Abd: soft, NT, ND Ext: no lower extremity edema Scheduled medications ampicillin-sulbactam, 3,000 mg, IntraVENous, q24h collagenase, , Topical, Daily Lidocaine, 1 patch, Topical, Daily metoprolol tartrate, 25 mg, Per G Tube, BID midodrine, 10 mg, Oral, BID Continuous medications sodium chloride, 20 mL/hr, Last Rate: 20 mL/hr (01/25/252003) PRN medications PRN medications: acetaminophen, collagenase, dextrose, dextrose, glucagon (rDNA), glucose, ipratropium-albuterol, melatonin, metoprolol, naloxone, oxyCODONE OR oxyCODONE, prochlorperazine, sodium chloride, sodium chloride Results from last 7 days Lab Units 01/30/25 0047 SODIUM mmol/L 135* POTASSIUM mmol/L 3.7 CHLORIDE mmol/L 99 CO2 mmol/L 23 BUN mg/dL 10 CREATININE mg/dL 2.56* CALCIUM mg/dL 9.6 GLUCOSE mg/dL 88 Results from last 7 days Lab Units 01/30/25 0047 01/29/25 0337 01/28/25 0632 MAGNESIUM mg/dL 1.9 2.0 2.0 Results from last 7 days Lab Units 01/30/25 0047 01/29/25 0337 01/28/25 0516 WBC AUTO 10*3/uL 8.8 9.4 9.8 HEMOGLOBIN g/dL 8.7* 8.6* 8.5* HEMATOCRIT % 28.1* 27.3* 26.3* PLATELETS 10*3/uL 276 271 240 Assessment & Plan: Problem: End-Stage Renal Disease (ESRD) on Hemodialysis Assessment: Patient with known ESRD on a Wednesday/Wednesday/Wednesday (MWF) hemodialysis schedule. Hemodialysis undergoing with no issues Chronic hypotension remains a concern; patient is maintained on midodrine No signs of volume overload or uremic symptoms (e.g., encephalopathy, pericarditis) at this time. Output monitoring ongoing -- no Payne catheter, tracking via clinical assessment. Weight today: 58.9 kg (previous documented weight stable). Plan adjusted considering ongoing bleeding risks (rectal bleeding history, held anticoagulation). Plan: Complete HD as ordered Continue hemodialysis MWF schedule. Maintain midodrine for blood pressure support. Monitor daily weights, intake/output (I/Os), and clinical volume status. Continue to monitor BUN/Creatinine and electrolyte panel post-HD sessions. No anticoagulation restarted at this time due to recent GI bleeding and supratherapeutic INR. Ensure appropriate vascular access site care. Nephrology to continue routine management and reassess HD prescription as needed based on volume status and labs. Please message me through EPIC chat with any questions or concerns. Wellington Nicole MD 01/30/2025 9:08 AM [facility] [address] [place] [address], [address] [place] [address] Office: [phone] Images from the original note were not included. Speech-Language Pathology SPEECH LANGUAGE PATHOLOGY [facility] Dysphagia Treatment Note Patient Name: Jun Snyder Evaluation Date: 01/29/2025 Date of : 1965 Admission Date: 01/19/2025 2:13 AM Age: 59 y.o. Room/Bed: 1C-144/1C-144 A Subjective Patient alert, confused and restless, itching self, and slightly agitated. Seen semi-upright in bed, specialty bed and slid immediately down somewhat. Answers few basic questions with breathy vocal to breathy to breathy/ hoarse quality. Follows few basic commands. No visitors at bedside. Spoke with SWEETIE Conti who cleared pt for treatment. Current Diet: Dietary Orders (From admission, onward) Start Ordered 01/25/25 1314 Adult diet Dysphagia - Pureed Diet effective now Comments: Pureed solids and Thin liquids and meds crushed in puree and the following precautions: - Upright positioning for all PO intake - Small bites/sips - Frequent re-swallows to clear oral cavity Question: Diet type Answer: Dysphagia - Pureed 01/25/25 1315 Oxygen: Oxygen Therapy: None (Room air) Yes I would like something to eat, after I get up What do you have Pain: No current c/o pain. Some grimace when repositioning pt. PPE Worn: gloves Objective & Assessment Dysphagia Treatment # of Activities: 2 Dysphagia Activity 1: Education re: MBS results and swallowing strategies. Dysphagia Activity 2: Advanced diet textures as appropriate. Pt is very restless and confused. Does not recall going to dialysis today. I had it yesterday Multiple complaints and wanting to get out of bed. Scratching and picking continues. I am supposed to get this out today Pt accepted 2 bites of pudding. Slower rate to allow second swallow. Spontaneous when given additional time. He indicated that he would like a drink, after he get's up in the chair. He did not accept a drink at this time. Brought apple juice as pt requested, then did not try; he needed to do something else first. Provided instructions for Elif/tongue bite/swallow for tongue base strengthening. Pt was able to complete x2 after multiple instructions. Having difficulty keeping pt on task. He dismissed further interaction. Plan & Recommendations Plan: Continue current plan of care. Assess advanced diet trials as appropriate and willing. Tongue base strengthening. Recommend Pureed solids and Thin liquids and meds crushed in puree and the following precautions: - Upright positioning for all PO intake - Small bites/sips - Frequent re-swallows to clear oral cavity D/C Recommendations: ongoing speech therapy at next level of care Education Education Given: swallowing strategies, diet recommendations, education of oropharyngeal/oral motor exercise for strengthening Given To: patient Response: needs reinforcement Goals Patient Stated Goal: Patient unable to participate in goal setting at this time. Decreased ability to remain on task. Encounter Problems Encounter Problems (Active) Swallowing Patient will tolerate the least restrictive diet consistency to allow for safe consumption of daily meals (Progressing) Start: 01/25/25 Expected End: 02/08/25 Patient will tolerate recommended food and liquid consistencies without clinical signs and symptoms of aspirations (Progressing) Start: 01/25/25 Expected End: 02/08/25 Encounter Problems (Resolved) Swallowing Patient will participate in instrumental assessment of swallowing as appropriate (Completed) Start: 01/19/25 Expected End: 02/02/25 Resolved: 01/25/25 Therapy Time E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 Individual Minutes Time In: 1438 Time Out: 1456 Minutes: 18 FRANKLIN Bailon Images from the original note were not included. [facility] - Infectious Diseases Attending Progress Note Subjective: Following for sacral osteomyelitis- ASE and Clostridium. Hx mechanical AVR. Having HD today. Afebrile. Objective: Vitals: Patient Vitals for the past 24 hrs: BP Temp Temp src Pulse Resp SpO2 Weight 01/29/25 1200 126/73 36.4 C (97.5 F) -- 74 -- -- -- 01/29/25 1147 124/74 -- -- 73 -- -- -- 01/29/25 1131 91/53 -- -- 67 -- -- -- 01/29/25 1116 (!) 89/51 -- -- 67 -- -- -- 01/29/25 1100 97/58 -- -- 71 -- -- -- 01/29/25 1045 103/65 -- -- 67 -- -- -- 01/29/25 1030 137/74 -- -- 67 -- -- -- 01/29/25 1018 143/82 -- -- 79 -- -- -- 01/29/25 1000 131/79 -- -- 68 -- -- -- 01/29/25 0948 139/90 -- -- 77 -- -- -- 01/29/25 0930 135/79 -- -- 77 -- -- -- 01/29/25 0915 126/76 -- -- 70 -- -- -- 01/29/25 0906 126/74 -- -- 71 -- -- -- 01/29/25 0904 126/76 -- -- 60 -- -- -- 01/29/25 0849 125/74 -- -- 75 -- -- -- 01/29/25 0847 130/67 -- -- 77 -- -- -- 01/29/25 0839 122/73 36.9 C (98.4 F) -- 81 18 98 % -- 01/29/25 0831 127/71 36.4 C (97.6 F) Temporal 80 17 100 % -- 01/29/25 0651 -- -- -- -- -- -- 53.1 kg (117 lb 1 oz) 01/29/25 0100 132/63 36.4 C (97.5 F) Temporal -- -- 93 % -- 01/28/252029 141/75 36 C (96.8 F) Temporal -- -- 94 % -- 01/28/25 1512 108/73 36.3 C (97.3 F) Temporal 79 18 99 % -- Physical Exam Vitals and nursing note reviewed. Constitutional: Comments: comfortable Labs: Lab Results Component Value Date/Time NA 134 (L) 01/29/2025336 K 3.7 01/29/2025336 CL 94 (L) 01/29/2025336 CO2 23 01/29/2025336 BUN 21 01/29/2025336 CREATININE 4.17 (H) 01/29/2025336 CREATININE 9.99 (H) 10/27/2019 0545 GLUCOSE 80 01/29/2025 0337 CALCIUM 9.8 01/29/2025 0337 PROT 7.6 01/22/2025 0419 BILITOT 0.9 01/22/2025 0419 ALKPHOS 274 (H) 01/22/2025 0419 AST 51 (H) 01/22/2025 0419 ALT 44 (H) 01/22/2025 0419 PROCAL 4.10 (H) 12/31/2024 0108 PROCAL 4.25 (H) 11/23/2024 1430 PROCAL 3.47 (H) 11/01/2024 0732 Lab Results Component Value Date/Time WBC 9.4 01/29/2025 0337 HGB 8.6 (L) 01/29/2025 0337 HGB 9.4 11/11/2024 0230 HCT 27.3 (L) 01/29/2025 0337 PLT 271 01/29/2025 0337 GRANULOCYTES 62.2 10/27/2019 0545 LYMPHOPCT 13.7 (L) 01/23/2025 1514 LYMPHOPCT 10 (L) 01/01/2025 0100 MONOPCT 13.7 (H) 01/23/2025 1514 MONOPCT 10 01/01/2025 0100 LABEOS 4.9 10/27/2019 0545 BASOPCT 1.0 01/23/2025 1514 BASOPCT 1 01/01/2025 0100 NEUTROABS 7.0 01/23/2025 1514 Micro: 01/22- C auris PCR- negative 01/22- CRAB PCR- negative 01/02- sacralwound cx- ASE, skin ila, Clostridium clostridioforme 01/01- blood cx- negative 12/30- blood cx- negative 12/30- resp cx- MSSA 12/25- blood cx- negative 12/14- resp cx- MSSA, resp ila 12/14- MRSA nasal PCR- + MSSA 12/11- resp cx- MSSA, resp ila 11/28- pleural fluid cx- negative 11/16- abd cx- C glabrata, ASE, skin ila 11/15- RVP- negative 11/14- BAL cx- resp ila 11/14- pneumonia PCR panel- negative Lines: AVF LUE PIV PEG Radiography/Echo/Other: 01/25- modified barium swallow- No vocal cord penetration or airway aspiration. 01/24- CXR- 1. Median sternotomy and valve repair. 2. Infiltrate in the lingula of the left upper lobe. 3. Prominence of the central pulmonary vasculature consistent with mild congestive heart failure/fluid overload. 4. The aeration of the lungs has improved mildly when compared to the previous study. 01/20- CTA abd/pelvis- 1. Imaging does not identify the site and/or source of the GI bleed. There is no intraluminal IV contrast appreciated. There are multiple loops of fluid-filled small and large bowel. The rectum is mildly distended with intraluminal fluid, consider diarrhea. 2. There is a large posterior decubitus ulcer which extends to the sacrum and coccyx with locules of air, fluid, and edema, correlate with clinical physical exam. This is new compared to 11/16/2024. 3. Colonic diverticulosis. 4. Renal atrophy. This patient has end-stage renal disease and is receiving dialysis. 5. Cholelithiasis. The gallbladder is decompressed with wall thickening measuring 6-7 mm (differential includes poor distention, systemic process, cholecystitis). Consider nuclear medicine HIDA scan and/or ultrasound. 6. Bilateral small pleural effusions with compressive atelectasis and/or infiltrate. Cardiomegaly. 7. Other: IVC filter. Percutaneous gastrostomy tube. Additional findings, as above. Select: 01/02- CT pelvis- Inflammatory ulceration overlies the distal sacrum and coccyx. No underlying bony erosions are detected on this study. Symptoms may guide the need for further imaging like MRI. 11/24- YG- Left Atrium: Left atrium is mildly dilated. Windsock appendage. No left atrial appendage thrombus noted. Light spontaneous echo contrast visualized in the left atrial appendage. No left atrial mass present. Left Ventricle: Not well visualized. Left ventricle size is normal. Moderate septal thickening. Unable to assess left ventricular systolic function. Unable to assess wall motion. Right Ventricle: Not well visualized. Right ventricle size is normal. Moderately reduced systolic function. Aortic Valve: Not well visualized. St. Luis mechanical aortic valve that is well-seated with a size of 23 mm. No regurgitation. No paravalvular regurgitation. Likely no stenosis based on appearance and flow characteristics but no gastric/trans-gastric views were done to obtain doppler images. Tricuspid Valve: Moderate (2+) regurgitation with a centrally directed jet. YG was done without entering stomach for gastric or trans-gastric views. Therefore, no gradients across the prosthetic AV were able to be obtained. Additional evaluation of LV and RV function was not undertaken due to these limitations. Brief successful DC cardioversion X 2 followed by return to atrial fibrillation. Further management per EP. Antimicrobials, Start/End Dates: Unasyn 3g IV q24h Impression: Sacral wound with osteomyelitis- ASE/ Clostridium - s/p bedside debridement with exposed bone (01/02) Trach dislodgement GIB Hx MSSA LRTIs Hx C glabrata/ ASE peritonitis- treated (10/2024) Pneumoperitoneum- s/p ex lap, Abhishek gastrostomy (11/16/24) Hx GIB s/p GDA embolization (10/14/24) PEA arrest x2 (10/14/24; 11/01/24) Hx mechanical AVR LLE DVTs s/p IVC filter; foot ischemia ESRD on HD via AVF A fib on amiodarone Plan: Continue unasyn x 6 weeks--> stop date 02/13. Ongoing wound care. Will need a tunneled powerline. Im to handle ordering with his concomitant anticoagulation. OPAT is scanned in media tab with updated dosing. Will follow. Based on diagnoses and management, combination of acute and chronic problems, exacerbations and/or acuity, this visit should be considered to be of low complexity. Radha Yee MD [facility] Nephrology Progress Note Mr. Jun Snyder is a 59-year-old male with a history of end-stage renal disease (ESRD) on a Wednesday/Wednesday/Wednesday hemodialysis (HD) schedule. His ESRD has been complicated by chronic hypotension, for which he is maintained on midodrine 15 mg every 6 hours. He remains on intermittent HD with nephrology following, and no acute dialysis-related complications have been noted during this hospitalization. His chronic renal failure was confirmed on prior imaging showing renal atrophy. Management continues with a focus on volume support, monitoring of electrolytes, and hemodynamic stability, with adjustments made as needed based on his clinical course Patient seen on HD BP 131/79 Pulse 68 Temp 36.9 C (98.4 F) Resp 18 Ht 1.778 m (5' 10) Wt 53.1 kg (117 lb 1 oz) SpO2 98% BMI 16.80 kg/m Input / Output: 24 HR: Intake/Output Summary (Last 24 hours) at 01/29/2025 1013 Last data filed at 01/29/2025 0651 Gross per 24 hour Intake 800 ml Output -- Net 800 ml Physical Exam Alert and oriented x 1 NAD Neck: no JVD CV: RRR Lungs: CTA bilaterally Abd: soft, NT, ND Ext: no lower extremity edema Scheduled medications ampicillin-sulbactam, 3,000 mg, IntraVENous, q24h collagenase, , Topical, Daily gelatin absorbable, , , Lidocaine, 1 patch, Topical, Daily metoprolol tartrate, 25 mg, Per G Tube, BID midodrine, 10 mg, Oral, BID warfarin, 0.5 mg, Oral, Once Continuous medications sodium chloride, 20 mL/hr, Last Rate: 20 mL/hr (01/25/252003) PRN medications PRN medications: acetaminophen, collagenase, dextrose, dextrose, gelatin absorbable, glucagon (rDNA), glucose, ipratropium-albuterol, melatonin, metoprolol, naloxone, oxyCODONE OR oxyCODONE, prochlorperazine, sodium chloride, sodium chloride Results from last 7 days Lab Units 01/29/25 0337 SODIUM mmol/L 134* POTASSIUM mmol/L 3.7 CHLORIDE mmol/L 94* CO2 mmol/L 23 BUN mg/dL 21 CREATININE mg/dL 4.17* CALCIUM mg/dL 9.8 GLUCOSE mg/dL 80 Results from last 7 days Lab Units 01/29/25 0337 01/28/25 0632 01/27/25 0006 MAGNESIUM mg/dL 2.0 2.0 1.9 Results from last 7 days Lab Units 01/29/25 0337 01/28/25 0516 01/27/25 2147 01/27/25 0006 WBC AUTO 10*3/uL 9.4 9.8 -- 10.0 HEMOGLOBIN g/dL 8.6* 8.5* 8.4* 9.0* HEMATOCRIT % 27.3* 26.3* 26.3* 28.3* PLATELETS 10*3/uL 271 240 -- 273 Assessment & Plan: Problem: End-Stage Renal Disease (ESRD) on Hemodialysis Assessment: Patient with known ESRD on a Wednesday/Wednesday/Wednesday (MWF) hemodialysis schedule. Hemodialysis undergoing with no issues Chronic hypotension remains a concern; patient is maintained on midodrine No signs of volume overload or uremic symptoms (e.g., encephalopathy, pericarditis) at this time. Output monitoring ongoing -- no Payne catheter, tracking via clinical assessment. Weight today: 58.9 kg (previous documented weight stable). Plan adjusted considering ongoing bleeding risks (rectal bleeding history, held anticoagulation). Plan: Complete HD as ordered Continue hemodialysis MWF schedule. Maintain midodrine for blood pressure support. Monitor daily weights, intake/output (I/Os), and clinical volume status. Continue to monitor BUN/Creatinine and electrolyte panel post-HD sessions. No anticoagulation restarted at this time due to recent GI bleeding and supratherapeutic INR. Ensure appropriate vascular access site care. Nephrology to continue routine management and reassess HD prescription as needed based on volume status and labs. Please message me through Film[employer] chat with any questions or concerns. Wellington Nicole MD 01/29/2025 10:13 AM [facility] [address] [place] [address], [address] [place] [address] Office: [phone] Images from the original note were not included. Hospitalist Progress Note 01/29/2025 Subjective: Admit Date: 01/19/2025 PCP: Leilani Troncoso Room#: 1C-144/1C-144 A Brief Hospital Summary: Jun Snyder is a 59 y.o. male who who presented to [facility] 01/19 after inadvertent removal of his tracheostomy. He was transferred to [facility] ICU for surgical evaluation. On arrival he was maintaining appropriate O2 saturations on room air and the decision was made to leave the tracheostomy out. Able to be transferred out of ICU later that day. On 01/20 critical care and GI were consulted due to rectal bleeding. At that time patient determined to be stable to remain on GMF. On the morning of 01/21, GI recommended ICU transfer for EGD which revealed non-bleeding duodenal ulcer. At that time patient's sacral wound was noted to be bleeding. Have been trending INR's and H&H, currently stable. Received one unit of FFP per ZOË panel on 01/26 with no further evidence of bleed. Resumed Heparin ggt bridge to warfarin. Underwent HD successfully. hemodynamically stable. Transferred out to [facility] 01/27 Interval History: No overnight issues. Patient returned from HD Resting in bed comfortably No complaints Phlegm much decreased today Afebrile vss Reported he declined wound care for dressing change today Adult diet Dysphagia - Pureed 3 Day Weight Change: Unable to Calculate 24HR INTAKE/OUTPUT: Intake/Output Summary (Last 24 hours) at 01/29/2025 0847 Last data filed at 01/29/2025 0651 Gross per 24 hour Intake 800 ml Output -- Net 800 ml Past Medical History: Past Medical History: Diagnosis Date Acute renal failure (ARF) ([facility]) 10/19/2019 Anemia 12/30/2021 Calcification of abdominal aorta ([facility]) 10/08/202309/[address] abd Diverticulosis 10/08/2023 ESRD on hemodialysis ([facility]) ([facility]) 10/26/2019 Hemodialysis patient ([facility]) ([facility]) HTN (hypertension) 12/01/2022 Hypertension IgA nephropathy 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 10/26/2019 Missed vaccination due to patient refusal 10/08/2023 Has a number of non-scientific based beliefs which interfere with his understanding and acceptance of the medical benefit of vaccination. Nonrheumatic aortic valve stenosis 10/08/2023 Paroxysmal A-fib ([facility] ([facility]) 08/18/2023 Tobacco abuse 10/08/2023 LABS: CBC: Recent Labs 01/27/25 0006 01/27/25 2147 01/28/25 0516 01/29/25 0337 WBC 10.0 -- 9.8 9.4 RBC 3.26* -- 3.01* 3.06* HGB 9.0* 8.4* 8.5* 8.6* HCT 28.3* 26.3* 26.3* 27.3* MCV 86.8 -- 87.4 89.2 RDW 19.1* -- 19.0* 19.0* PLT 273 -- 240 271 BMP: Recent Labs 01/27/25 0006 01/28/25 0632 01/29/25 0337 NA 139 137 134* K 3.9 3.6 3.7 CL 99 98 94* CO2 23 26 23 BUN 9 14 21 CREATININE 2.27* 3.37* 4.17* GLUCOSE 115* 82 80 CALCIUM 9.9 10.0 9.8 ANIONGAP 17* 13 17* LIVER PROFILE:No results for input(s): AST, ALT, BILITOT, ALKPHOS, PROT in the last 72 hours. No lab exists for component: LABALBU PT/INR: Recent Labs 01/27/25 0006 01/28/25 0516 01/29/25 0337 PROTIME 19.9* 21.9* 24.0* INR 1.9* 2.2* 2.4* CARDIAC ENZYMES: No results for input(s): TROPONINI in the last 72 hours. Procalcitonin: No results found for: PROCAL COVID-19 PCR: No results for input(s): COVID19 in the last 72 hours. Encounter Date: 01/19/25 ECG 12 lead Result Value Heart Rate 93 QRSD Interval 113 QT Interval 413 QTC Interval 515 P [place] 69 QRS [place] 93 T Wave [place] 87 SC Interval 148 Impression Sinus rhythm Left atrial enlargement IRBBB and LPFB Prolonged QT interval Electronically Signed On 01-19-2025 15:36:34 EDT by Jr Shah Transthoracic echocardiogram (TTE) complete with contrast, bubble, strain, and 3D PRN Result Date: 11/02/2024 Right Ventricle: Right ventricle is massively dilated. Severely reduced systolic function. Left Ventricle: Left ventricle is smaller than normal. Mildly increased wall thickness. Hyperdynamic left ventricular systolic function. The EF by visual approximation is 70%. Normal wall motion. Diastolic dysfunction present with normal LVEF. Septal flattening in diastole and systole consistent with right ventricular volume and pressure overload. Aortic Valve: St. Luis mechanical aortic valve that is well-seated with a size of 23 mm. AV mean gradient is 7 mmHg. No regurgitation. Normal prosthetic gradient. AV mean gradient is 7 mmHg. Tricuspid Valve: Moderate (2+) regurgitation. Right Atrium: Right atrium is moderately dilated. Pericardium: The pericardium is normal. Trivial localized around the right ventricle. IVC/SVC: IVC is dilated. Patient is ventilated, cannot use IVC diameter to estimate right atrial pressure. Transthoracic echocardiogram (TTE) complete with contrast, bubble, strain, and 3D PRN Result Date: 10/04/2024 Left Ventricle: Left ventricle size is normal. Mildly increased wall thickness. Mildly reduced left ventricular systolic function. EF by 2D Simpsons Biplane is 40%. Unable to assess wall motion. Diastolic function indeterminate in the setting of atrial fibrillation. Right Ventricle: Right ventricle is moderately dilated. Increased wall thickness. Mildly reduced systolic function. Aortic Valve: Not well visualized. Severely calcified cusps. No regurgitation. Severe stenosis of the aortic valve. AV mean gradient is 42 mmHg. AV peak velocity is 4.1 m/s. AV Velocity Ratio is 0.15. LVOT:AV VTI Index is 0.13. AV area by continuity VTI is 0.5 cm2. Stroke volume index is 17.4 mL/m2. Mitral Valve: MV mean gradient is 6 mmHg. Thickened leaflets. Moderately calcified leaflets. Mild to moderate (1-2+) regurgitation. Mild stenosis noted. MV mean gradient is 6 mmHg. MV PHT is 61.2 ms. MV area by PHT is 3.6 cm2. Tricuspid Valve: Not well visualized. Mildly calcified leaflets. Annular dilation. Severe (4+) regurgitation with a centrally directed jet. Reversed hepatic vein systolic flow. RVSP may be underestimated in the setting of severe TR. RVSP is 41 mmHg. Left Atrium: Left atrium size is moderately increased (LA volume index 42-48 mL/m2).LA Vol Index A/L is 46 mL/m2. Right Atrium: Right atrium is severely dilated. IVC/SVC: IVC diameter is dilated and decreases less than 50% during inspiration; therefore the estimated right atrial pressure is elevated (~15 mmHg). @IMAGES@ Objective: Vitals: BP 122/73 Pulse 81 Temp 36.9 C (98.4 F) Resp 18 Ht 5' 10 (1.778 m) Wt 117 lb 1 oz (53.1 kg) SpO2 98% BMI 16.80 kg/m Pulse Ox: SpO2 Av.5 % Min: 93 % Max: 100 % Supplemental O2: O2 Flow Rate (L/min): 2 L/min General appearance: No apparent distress, thin HEENT: Eyes: No scleral icterus Oral: Tongue is semi-moist Cardiovascular: metal valve sound, RRR Respiratory: gurgling in upper respiratory tract Abdomen: Soft, non-tender, non-distended bowel sounds positive Musculoskeletal: no edema Medications: Current Facility-Administered Medications: acetaminophen (Tylenol) tablet 1,000 mg, 1,000 mg, Oral, q8h PRN, Steve Lassiter MD, 1,000 mg at 01/27/25 1231 ampicillin-sulbactam (Unasyn) 3,000 mg in sodium chloride 0.9 % 100 mL IVPB (Add-Reynolds), 3,000 mg, IntraVENous, q24h, Radha Yee MD, Stopped at 01/28/25 1654 collagenase 250 UNIT/GM ointment, , Topical, PRN, Steve Lassiter MD, Given at 01/21/25 1339 collagenase 250 UNIT/GM ointment, , Topical, Daily, Steve Lassiter MD, Given at 01/28/25 1624 dextrose 5 % infusion, 100 mL/hr, IntraVENous, PRN, Minor Collier MD, Last Rate: 100 mL/hr at 01/21/25 0636, 100 mL/hr at 01/21/25 0636 dextrose 50 % solution 12.5 g, 12.5 g, IntraVENous, PRN, Minor Collier MD, 12.5 g at 01/21/25 0616 glucagon (human recombinant) injection 1 mg, 1 mg, IntraMUSCular, PRN, Minor Collier MD glucose oral gel 15 g, 15 g, Oral, PRN, Minor Collier MD ipratropium-albuterol (Duo-Neb) 0.5-2.5 mg/3 mL nebulizer solution 3 mL, 3 mL, Nebulization, PRN, Darryn Higgins MD Lidocaine 4 % patch 1 patch, 1 patch, Topical, Daily, Steve Lassiter MD, 1 patch at 01/29/25 0820 melatonin tablet 5 mg, 5 mg, Per G Tube, Nightly PRN, Steve Lassiter MD metoprolol tartrate (Lopressor) injection 5 mg, 5 mg, IntraVENous, q5 min PRN, Earlene Lozano, [employer] CE[employer] ENGINEER - [employer] SALES ENGINEER, 5 mg at 01/25/25 1846 metoprolol tartrate (Lopressor) tablet 25 mg, 25 mg, Per G Tube, BID, Earlene Lozano, [employer] CE[employer] ENGINEER - [employer] SALES ENGINEER, 25 mg at 01/28/25 2222 midodrine (Proamatine) tablet 10 mg, 10 mg, Oral, BID, Arthur Joseph MD, 10 mg at 01/29/25 0820 naloxone (Narcan) injection 0.4 mg, 0.4 mg, IntraVENous, q5 min PRN, Steve Lassiter MD oxyCODONE (Roxicodone) immediate release tablet 5 mg, 5 mg, Oral, q6h PRN, 5 mg at 01/25/25 0303 OR oxyCODONE (Roxicodone) immediate release tablet 10 mg, 10 mg, Oral, q6h PRN, Noman Owens MD, 10 mg at 01/28/25 2222 prochlorperazine (Compazine) injection 5 mg, 5 mg, IntraVENous, q6h PRN, Sangeeta Reeys DO, 5 mg at 01/26/25 0134 sodium chloride 0.9 % infusion, 20 mL/hr, IntraVENous, Continuous, Inés Cotto PA-C, Last Rate: 20 mL/hr at 01/25/252003, 20 mL/hr at 01/25/252003 sodium chloride 0.9 % infusion, 250 mL/hr, IntraVENous, PRN, Sangeeta Reyes, sodium chloride 0.9 % infusion, 250 mL/hr, IntraVENous, PRN, Sangeeta Reyes, DO warfarin (Coumadin) tablet 0.5 mg, 0.5 mg, Oral, Once, Bob Watson MD Assessment Tracheostomy Tube Change GIB w/ bleeding worsened by Coumadin - Internal hemorrhoids Stage V Sacral Wound with osteomyelitis POA Supratherapeutic INR on Coumadin Acute on Chronic Anemia w/ blood loss anemia Aortic Valve Stenosis status post aortic valve replacement on coumadin Chronic Respiratory Failure with Hypoxia s/p Trach - now removed ESRD on HD Chronic Hypotension Afib on Coumadin Necrotic L toes Seen by GI, s/p colonoscopy stop heparin gtt since therapeutic INR Dose coumadin per SAILAJA, INR daily Follow HH, transfuse for Hg <7.00 Wound care HD per Nephrology MWF Unasyn 6 weeks until 02/13 for sacral wound with OM by ID Ordered tunneled central line placement [employer]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 follow, dysphagia diet PT OT DC planning Past Medical History: Diagnosis Date Acute renal failure (ARF) ([facility]) 10/19/2019 Anemia 12/30/2021 Calcification of abdominal aorta ([facility]) 10/08/202309/[address] abd Diverticulosis 10/08/2023 ESRD on hemodialysis ([facility]) ([facility]) 10/26/2019 Hemodialysis patient ([facility]) ([facility]) HTN (hypertension) 12/01/2022 Hypertension IgA nephropathy 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 10/26/2019 Missed vaccination due to patient refusal 10/08/2023 Has a number of non-scientific based beliefs which interfere with his understanding and acceptance of the medical benefit of vaccination. Nonrheumatic aortic valve stenosis 10/08/2023 Paroxysmal A-fib ([facility]) ([facility]) 08/18/2023 Tobacco abuse 10/08/2023 Plan As above -am labs, replace lytes prn -Drug toxicity monitor: coumadin, cbc GI bleeding -increase activity -DVT prophylaxis: [] Lovenox [] Heparin [] SCDs [x] Encourage ambulation [x] Already on Anticoagulation Advance Directive: Full Code Family discussion: Anticipated Discharge - Date - - Location - Skilled Facility - Pending the following - stability, central line placement Total time spent (which include face to face and non face to face encounters) : 52 minutes Kamran Lira MD Division of Hospitalist Medicine [facility]patient Medical Services[place] Images from the original note were not included. [facility] Wound Care Progress Note Jun Snyder AGE: 59 y.o. GENDER: male : 1965 Subjective: HISTORY of PRESENT ILLNESS HPI Jun Snyder is a 59 y.o. male who presents for a wound follow up. HPI: Jun is a 59 yo male with a PMH of Trach and peg, HTN, paroxysmal a-fib, R occipital ICH, Tobacco abuse, ARF - dialysis (TTS; LUE AVF), diverticulosis, IgA nephropathy, severe that presented to [facility] ED from a facility due to trach dislodgement. Wound Care consulted for Pressure Injury sacrum and Ischemic ulcers to left toes Patient resting in Envella. Patient refusing multiple attempts made by this service to change NPWT dressing. Transport at bedside attempting to take patient to dialysis to which patient is also refusing. Floor RN at bedside attempting to talk with patient. PAST MEDICAL HISTORY Past Medical History: Diagnosis Date Acute renal failure (ARF) ([facility]) 10/19/2019 Anemia 12/30/2021 Calcification of abdominal aorta ([facility]) 10/08/202309/[address] abd Diverticulosis 10/08/2023 ESRD on hemodialysis ([facility]) ([facility]) 10/26/2019 Hemodialysis patient ([facility]) ([facility]) HTN (hypertension) 12/01/2022 Hypertension IgA nephropathy 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 10/26/2019 Missed vaccination due to patient refusal 10/08/2023 Has a number of non-scientific based beliefs which interfere with his understanding and acceptance of the medical benefit of vaccination. Nonrheumatic aortic valve stenosis 10/08/2023 Paroxysmal A-fib ([facility]) ([facility]) 08/18/2023 Tobacco abuse 10/08/2023 PAST SURGICAL HISTORY Past Surgical History: Procedure Laterality Date APPENDECTOMY CARDIAC CATHETERIZATION N/A 10/09/2024 Performed by Bob Watson MD at [facility] Cardiac Cath/EP Lab CARDIAC CATHETERIZATION Bilateral 11/01/2024 Performed by Bob Watson MD at [facility] Cardiac Cath/EP Lab CARDIAC CATHETERIZATION N/A 11/01/2024 Performed by Bob Watson MD at [facility] Cardiac Cath/EP Lab COLONOSCOPY N/A 01/24/2025 Performed by Chadd Davis MD at [facility] ENDOSCOPY FISTULAGRAM (HISTORICAL) Left 09/15/2021 LEFT UPPER ARM HX AV FISTULA CREATION IR EMBOLIZATION 10/14/2024 IR EMBOLIZATION 10/14/2024 [facility] SPECIAL PROCEDURES IR FISTULAGRAM 08/07/2022 IR FISTULAGRAM 08/07/2022 SB IR IMAGING TONSILLECTOMY (HISTORICAL) FAMILY HISTORY Family History Problem Relation Name Age of Onset No Known Problems Mother No Known Problems Father SOCIAL HISTORY Social History Tobacco Use Smoking status: Every Day Current packs/day: 1.00 Average packs/day: 1.4 packs/day for 31.2 years (45.0 ttl pk-yrs) Types: Cigarettes Start date: 1993 Passive exposure: Past Smokeless tobacco: Never Tobacco comments: Started at 28, 3 PPD, tapered down to 1 PPD in 2020 after quitting drinking. 10/27/24 Vaping Use Vaping status: Never Used Substance Use Topics Alcohol use: Not Currently Drug use: Never ALLERGIES Allergies Allergen Reactions Lisinopril Swelling and Angioedema MEDICATIONS No current facility-administered medications on file prior to encounter. Current Outpatient Medications on File Prior to Encounter Medication Sig Dispense Refill epoetin rowan-epbx (Retacrit) 50758 UNIT/ML injection Inject 0.79 mL (7,900 Units) under the skin 1 (one) time per week. heparin 100 units/mL in dextrose 5 % infusion Infuse 294.5-1,767 Units/hr into a venous catheter continuous. heparin 1000 units/mL injection Infuse 2 mL (2,000 Units) into a venous catheter as needed (heparin dosing algorithm). heparin 1000 units/mL injection Infuse 4 mL (4,000 Units) into a venous catheter as needed (per heparin dosing algorithm). ipratropium-albuterol (Duo-Neb) 0.5-2.5 mg/3 mL nebulizer solution Take 3 mL by nebulization every 8 hours. Lidocaine 4 % patch Apply 1 patch topically daily. melatonin 5 MG tablet 1 tablet (5 mg) by Per G Tube route Nightly as needed (insomnia). metoprolol tartrate (Lopressor) 25 MG tablet 1 tablet (25 mg) by Per G Tube route 2 times daily. midodrine (Proamatine) 5 MG tablet 3 tablets (15 mg) by Per G Tube route every 6 hours. pantoprazole (ProtoNix) 40 MG injection Infuse 40 mg into a venous catheter 2 times daily. QUEtiapine (SEROquel) 25 MG tablet 1 tablet (25 mg) by Per G Tube route Nightly. warfarin (Coumadin) 1 MG tablet Take as directed per After Visit Summary. REVIEW OF SYSTEMS Pertinent items are noted in HPI. Objective: BP 126/73 Pulse 74 Temp 36.4 C (97.5 F) Resp 18 Ht 1.778 m (5' 10) Wt 53.1 kg (117 lb 1 oz) SpO2 98% BMI 16.80 kg/m PHYSICAL EXAM General appearance: in no apparent distress, well developed and well nourished, in no respiratory distress and acyanotic, alert, and uncooperative Skin: warm and dry Pulmonary: Normal effort, no respiratory distress, no cyanosis Sacrum: NPWT intact and well sealed at -125mmHg Left toes 1-4: Necrotic dry stable intact eschar with no drainage noted. Mahnaz wound with dry peeling flaky skin. 01/29/25 LABS CBC: Lab Results Component Value Date WBC 9.4 01/29/2025 HGB 8.6 (L) 01/29/2025 HCT 27.3 (L) 01/29/2025 MCV 89.2 01/29/2025 PLT 271 01/29/2025 BMP: Lab Results Component Value Date NA 134 (L) 01/29/2025 K 3.7 01/29/2025 CL 94 (L) 01/29/2025 CO2 23 01/29/2025 PHOS 4.9 (H) 01/29/2025 BUN 21 01/29/2025 CREATININE 4.17 (H) 01/29/2025 PT/INR: Lab Results Component Value Date PROTIME 24.0 (H) 01/29/2025 INR 2.4 (H) 01/29/2025 Prealbumin: No results found for: PREALBUMIN Albumin:No components found for: LABALBU Sed Rate:No results found for: SEDRATE Micro: No components found for: BC Assessment/Plan: Sacrum: Pressure Injury Stage 4 (POA) - REFUSED CHANGE - Clean with NS, apply Vac. Place black foam to wound bed at 125mmHg continuous, change 3 times a week and PRN - Change cannister once a week or when full. - If suction fails: - remove vac dressing - cleanse wound with normal saline - pack wound with saline moistened gauze and change every 12 hours -Envella bed -waffle chair cushion -Q2hr/PRN turns -glide sheets for T&R -continence checks Q1-2 Hrs/PRN Nursing staff to perform dressing change: Left toes 1-4: Arterial Ulcer (Unknown) -cleanse with NS, apply Betadine and allow to dry, leave TISHA daily and PRN -Recommend PVRs for circulation check Nutritional support Wound Care to follow Recommend to follow up at [facility] Outpatient wound care center after hospital discharge. Any questions or concerns please secure chat [facility] wound/ostomy. Thank you for the consult! I personally obtained the francis and critical portions of the history and physical exam. I reviewed the labs, imaging studies, and electronic medical record. I reviewed the chart documentation and discussed the patient with treatment team members. I have edited the note to reflect my clinical findings and my assessment and plan. Please note, the time of this note does not reflect the time I saw this patient today, but the time of this documentaton. Portions of this note including HPI, ROS, impression/plan, and examination may have been copied forward from admission to today as to provide important historical information essential in contributing to medical decision making. Documentation has been reviewed and edited as necessary to support clinical decision making for today's visit and to reflect my own independent evaluation of this patient. Decision making for today's visit and to reflect my own independent evaluation of this patient. Cosigned by Ahsan Gill DO at 01/29/2025 4:37 PM EDT [facility] Anticoagulation Management Service ([facility]) Inpatient Warfarin Consult HPI: Jun Snyder is a 59 y.o. male admitted on 01/19/2025 for Complication of tracheostomy ([facility]) ([facility]) [J95.00] Past Medical History: Diagnosis Date Acute renal failure (ARF) ([facility]) 10/19/2019 Anemia 12/30/2021 Calcification of abdominal aorta ([facility]) 10/08/202309/[address] abd Diverticulosis 10/08/2023 ESRD on hemodialysis ([facility]) ([facility]) 10/26/2019 Hemodialysis patient ([facility]) ([facility]) HTN (hypertension) 12/01/2022 Hypertension IgA nephropathy 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 10/26/2019 Missed vaccination due to patient refusal 10/08/2023 Has a number of non-scientific based beliefs which interfere with his understanding and acceptance of the medical benefit of vaccination. Nonrheumatic aortic valve stenosis 10/08/2023 Paroxysmal A-fib ([facility]) (HCC) 08/18/2023 Tobacco abuse 10/08/2023 Patient is on warfarin for Afib, mechanical AVR and has a goal INR 2.0 - 3.0. Warfarin is currently managed by facility, has yet to be seen by [facility]. Pt's home dose of warfarin is not yet established, managed by facility. S/sx of bleeding= concern for GIB, anemia Interacting medications= unasyn, Vitamin K 2.5 mg PO administered 01/22. Labs: Recent Labs 01/27/25 0006 01/27/25 2147 01/28/25 0516 01/29/25 0337 HGB 9.0* 8.4* 8.5* 8.6* HCT 28.3* 26.3* 26.3* 27.3* PLT 273 -- 240 271 Recent Labs 01/29/25 0337 INR 2.4* Date INR Dose 01/29 2.4 0.5mg 01/28 2.2 0.5mg 01/27 1.9 1mg 01/26 1.8 1 mg 01/25 1.7 0.5 mg 01/24 1.5 1mg 01/23 2.0 HOLD 01/22 8.1/3.1 HOLD vitamin K 2.5mg PO 01/21 7.9 Held 01/20 --- Held 01/19 2.7 HOLD Assessment/Plan: 1. INR is therapeutic. Will continue warfarin 0.5mg today. 2. Monitor for s/s of bleeding and drug interactions. Will adjust dose accordingly 3. Will facilitate f/u at [facility] upon discharge Fatuma Odonnell RPh [facility] is available daily [phone] via [employer]. If no response on [employer] Chat then please page [phone]. [facility] Nephrology Progress Note Mr. Jun Snyder is a 59-year-old male with a history of end-stage renal disease (ESRD) on a Wednesday/Wednesday/Wednesday hemodialysis (HD) schedule. His ESRD has been complicated by chronic hypotension, for which he is maintained on midodrine 15 mg every 6 hours. He remains on intermittent HD with nephrology following, and no acute dialysis-related complications have been noted during this hospitalization. His chronic renal failure was confirmed on prior imaging showing renal atrophy. Management continues with a focus on volume support, monitoring of electrolytes, and hemodynamic stability, with adjustments made as needed based on his clinical course BP 118/71 (BP Location: Right arm, Patient Position: Sitting) Pulse 87 Temp 36.3 C (97.3 F) (Temporal) Resp 18 Ht 1.778 m (5' 10) Wt 52.6 kg (115 lb 15.4 oz) SpO2 95% BMI 16.64 kg/m Input / Output: 24 HR: Intake/Output Summary (Last 24 hours) at 01/28/2025 1408 Last data filed at 01/28/2025 0706 Gross per 24 hour Intake 500 ml Output 50 ml Net 450 ml Physical Exam Alert and oriented x 1 NAD Neck: no JVD CV: RRR Lungs: CTA bilaterally Abd: soft, NT, ND Ext: no lower extremity edema Scheduled medications ampicillin-sulbactam, 3,000 mg, IntraVENous, q24h collagenase, , Topical, Daily Lidocaine, 1 patch, Topical, Daily metoprolol tartrate, 25 mg, Per G Tube, BID midodrine, 10 mg, Oral, BID warfarin, 0.5 mg, Oral, Once Continuous medications heparin, 5-30 Units/kg/hr, Last Rate: 13 Units/kg/hr (01/28/25 0737) sodium chloride, 20 mL/hr, Last Rate: 20 mL/hr (01/25/252003) PRN medications PRN medications: acetaminophen, collagenase, dextrose, dextrose, glucagon (rDNA), glucose, ipratropium-albuterol, melatonin, metoprolol, naloxone, oxyCODONE OR oxyCODONE, prochlorperazine, sodium chloride, sodium chloride Results from last 7 days Lab Units 01/28/25 0632 01/23/25 0430 01/22/25 0419 SODIUM mmol/L 137 < > 132* POTASSIUM mmol/L 3.6 < > 4.4 CHLORIDE mmol/L 98 < > 94* CO2 mmol/L 26 < > 25 BUN mg/dL 14 < > 53* CREATININE mg/dL 3.37* < > 4.18* CALCIUM mg/dL 10.0 < > 9.8 PROTEIN TOTAL g/dL -- -- 7.6 BILIRUBIN TOTAL mg/dL -- -- 0.9 ALK PHOS U/L -- -- 274* ALT U/L -- -- 44* AST U/L -- -- 51* GLUCOSE mg/dL 82 < > 70* < > = values in this interval not displayed. Results from last 7 days Lab Units 01/28/25 0632 01/27/25 0006 01/26/25 0248 MAGNESIUM mg/dL 2.0 1.9 2.0 Results from last 7 days Lab Units 01/28/25 0516 01/27/25 2147 01/27/25 0006 01/26/25 0952 01/26/25 0248 WBC AUTO 10*3/uL 9.8 -- 10.0 -- 8.7 HEMOGLOBIN g/dL 8.5* 8.4* 9.0* < > 6.7* HEMATOCRIT % 26.3* 26.3* 28.3* < > 21.0* PLATELETS 10*3/uL 240 -- 273 -- 265 < > = values in this interval not displayed. Assessment & Plan: Problem: End-Stage Renal Disease (ESRD) on Hemodialysis Assessment: Patient with known ESRD on a Wednesday/Wednesday/Wednesday (MWF) hemodialysis schedule. Hemodialysis completed Wednesday without complications. Chronic hypotension remains a concern; patient is maintained on midodrine No signs of volume overload or uremic symptoms (e.g., encephalopathy, pericarditis) at this time. Output monitoring ongoing -- no Payne catheter, tracking via clinical assessment. Weight today: 58.9 kg (previous documented weight stable). Plan adjusted considering ongoing bleeding risks (rectal bleeding history, held anticoagulation). Plan: Continue hemodialysis MWF schedule. Maintain midodrine for blood pressure support. Monitor daily weights, intake/output (I/Os), and clinical volume status. Continue to monitor BUN/Creatinine and electrolyte panel post-HD sessions. No anticoagulation restarted at this time due to recent GI bleeding and supratherapeutic INR. Ensure appropriate vascular access site care. Nephrology to continue routine management and reassess HD prescription as needed based on volume status and labs. Please message me through [employer] chat with any questions or concerns. Wellington Nicole MD 01/28/2025 2:08 PM [facility] [address], [address] [place] [id number] Office: [phone] Hospitalist Progress Note 01/28/2025 Subjective: Admit Date: 01/19/2025 PCP: Leilani Troncoso Room#: 1C-144/1C-144 A Brief Hospital Summary: Jun Snyder is a 59 y.o. male who who presented to [facility] 01/19 after inadvertent removal of his tracheostomy. He was transferred to [facility] ICU for surgical evaluation. On arrival he was maintaining appropriate O2 saturations on room air and the decision was made to leave the tracheostomy out. Able to be transferred out of ICU later that day. On 01/20 critical care and GI were consulted due to rectal bleeding. At that time patient determined to be stable to remain on GMF. On the morning of 01/21, GI recommended ICU transfer for EGD which revealed non-bleeding duodenal ulcer. At that time patient's sacral wound was noted to be bleeding. Have been trending INR's and H&H, currently stable. Received one unit of FFP per ZOË panel on 01/26 with no further evidence of bleed. Resumed Heparin ggt bridge to warfarin. Underwent HD successfully. hemodynamically stable. Transferred out to [facility] 01/27 Interval History: No overnight issues. Up in chair Cough with phlegm, self suction Tolerating dysphagic diet General pain Afebrile vss Adult diet Dysphagia - Pureed 3 Day Weight Change: Unable to Calculate 24HR INTAKE/OUTPUT: Intake/Output Summary (Last 24 hours) at 01/28/2025 1028 Last data filed at 01/28/2025 0706 Gross per 24 hour Intake 500 ml Output 50 ml Net 450 ml Past Medical History: Past Medical History: Diagnosis Date Acute renal failure (ARF) ([facility]) 10/19/2019 Anemia 12/30/2021 Calcification of abdominal aorta ([facility]) 10/08/202309/[address] abd Diverticulosis 10/08/2023 ESRD on hemodialysis ([facility]) ([facility]) 10/26/2019 Hemodialysis patient ([facility]) ([facility]) HTN (hypertension) 12/01/2022 Hypertension IgA nephropathy 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 10/26/2019 Missed vaccination due to patient refusal 10/08/2023 Has a number of non-scientific based beliefs which interfere with his understanding and acceptance of the medical benefit of vaccination. Nonrheumatic aortic valve stenosis 10/08/2023 Paroxysmal A-fib (CMS/HCC) (HCC) 08/18/2023 Tobacco abuse 10/08/2023 LABS: CBC: Recent Labs 01/26/25 0248 01/26/25 0952 01/27/25 0006 01/27/25 2147 01/28/25 0516 WBC 8.7 -- 10.0 -- 9.8 RBC 2.41* -- 3.26* -- 3.01* HGB 6.7* < > 9.0* 8.4* 8.5* HCT 21.0* < > 28.3* 26.3* 26.3* MCV 87.1 -- 86.8 -- 87.4 RDW 19.3* -- 19.1* -- 19.0* PLT 265 -- 273 -- 240 < > = values in this interval not displayed. BMP: Recent Labs 01/26/25 0248 01/27/25 0006 01/28/25 0632 NA 136 139 137 K 5.1 3.9 3.6 CL 100 99 98 CO2 20* 23 26 BUN 19 9 14 CREATININE 3.37* 2.27* 3.37* GLUCOSE 75 115* 82 CALCIUM 9.0 9.9 10.0 ANIONGAP 16* 17* 13 LIVER PROFILE:No results for input(s): AST, ALT, BILITOT, ALKPHOS, PROT in the last 72 hours. No lab exists for component: LABALBU PT/INR: Recent Labs 01/26/25 0248 01/27/25 0006 01/28/25 0516 PROTIME 18.3* 19.9* 21.9* INR 1.8* 1.9* 2.2* CARDIAC ENZYMES: No results for input(s): TROPONINI in the last 72 hours. Procalcitonin: No results found for: PROCAL COVID-19 PCR: No results for input(s): COVID19 in the last 72 hours. Encounter Date: 01/19/25 ECG 12 lead Result Value Heart Rate 93 QRSD Interval 113 QT Interval 413 QTC Interval 515 P [place] 69 QRS [place] 93 T Wave [place] 87 SC Interval 148 Impression Sinus rhythm Left atrial enlargement IRBBB and LPFB Prolonged QT interval Electronically Signed On 01-19-2025 15:36:34 EDT by Jr Shah Transthoracic echocardiogram (TTE) complete with contrast, bubble, strain, and 3D PRN Result Date: 11/02/2024 Right Ventricle: Right ventricle is massively dilated. Severely reduced systolic function. Left Ventricle: Left ventricle is smaller than normal. Mildly increased wall thickness. Hyperdynamic left ventricular systolic function. The EF by visual approximation is 70%. Normal wall motion. Diastolic dysfunction present with normal LVEF. Septal flattening in diastole and systole consistent with right ventricular volume and pressure overload. Aortic Valve: [place]. Luis mechanical aortic valve that is well-seated with a size of 23 mm. AV mean gradient is 7 mmHg. No regurgitation. Normal prosthetic gradient. AV mean gradient is 7 mmHg. Tricuspid Valve: Moderate (2+) regurgitation. Right Atrium: Right atrium is moderately dilated. Pericardium: The pericardium is normal. Trivial localized around the right ventricle. IVC/SVC: IVC is dilated. Patient is ventilated, cannot use IVC diameter to estimate right atrial pressure. Transthoracic echocardiogram (TTE) complete with contrast, bubble, strain, and 3D PRN Result Date: 10/04/2024 Left Ventricle: Left ventricle size is normal. Mildly increased wall thickness. Mildly reduced left ventricular systolic function. EF by 2D Simpsons Biplane is 40%. Unable to assess wall motion. Diastolic function indeterminate in the setting of atrial fibrillation. Right Ventricle: Right ventricle is moderately dilated. Increased wall thickness. Mildly reduced systolic function. Aortic Valve: Not well visualized. Severely calcified cusps. No regurgitation. Severe stenosis of the aortic valve. AV mean gradient is 42 mmHg. AV peak velocity is 4.1 m/s. AV Velocity Ratio is 0.15. LVOT:AV VTI Index is 0.13. AV area by continuity VTI is 0.5 cm2. Stroke volume index is 17.4 mL/m2. Mitral Valve: MV mean gradient is 6 mmHg. Thickened leaflets. Moderately calcified leaflets. Mild to moderate (1-2+) regurgitation. Mild stenosis noted. MV mean gradient is 6 mmHg. MV PHT is 61.2 ms. MV area by PHT is 3.6 cm2. Tricuspid Valve: Not well visualized. Mildly calcified leaflets. Annular dilation. Severe (4+) regurgitation with a centrally directed jet. Reversed hepatic vein systolic flow. RVSP may be underestimated in the setting of severe TR. RVSP is 41 mmHg. Left Atrium: Left atrium size is moderately increased (LA volume index 42-48 mL/m2).LA Vol Index A/L is 46 mL/m2. Right Atrium: Right atrium is severely dilated. IVC/SVC: IVC diameter is dilated and decreases less than 50% during inspiration; therefore the estimated right atrial pressure is elevated (~15 mmHg). @IMAGES@ Objective: Vitals: BP 129/78 (BP Location: Right arm, Patient Position: Lying) Pulse 73 Temp 36 C (96.8 F) (Temporal) Resp 13 Ht 5' 10 (1.778 m) Wt 115 lb 15.4 oz (52.6 kg) SpO2 97% BMI 16.64 kg/m Pulse Ox: SpO2 Av.5 % Min: 93 % Max: 98 % Supplemental O2: O2 Flow Rate (L/min): 2 L/min General appearance: No apparent distress, thin HEENT: Eyes: No scleral icterus Oral: Tongue is semi-moist, trach site erythema Cardiovascular: S1/S2 heard, RRR Respiratory: gurgling in upper respiratory tract Abdomen: Soft, non-tender, non-distended bowel sounds positive Musculoskeletal: no edema Medications: Current Facility-Administered Medications: acetaminophen (Tylenol) tablet 1,000 mg, 1,000 mg, Oral, q8h PRN, Steve Lassiter MD, 1,000 mg at 01/27/25 1231 ampicillin-sulbactam (Unasyn) 3,000 mg in sodium chloride 0.9 % 100 mL IVPB (Add-Reynolds), 3,000 mg, IntraVENous, q24h, Radha Yee MD, Stopped at 01/27/25 1651 collagenase 250 UNIT/GM ointment, , Topical, PRN, Steve Lassiter MD, Given at 01/21/25 1339 collagenase 250 UNIT/GM ointment, , Topical, Daily, Steve Lassiter MD, Given at 01/22/25 0859 dextrose 5 % infusion, 100 mL/hr, IntraVENous, PRN, Minor Collier MD, Last Rate: 100 mL/hr at 01/21/25 0636, 100 mL/hr at 01/21/25 0636 dextrose 50 % solution 12.5 g, 12.5 g, IntraVENous, PRN, Minor Collier MD, 12.5 g at 01/21/25 0616 glucagon (human recombinant) injection 1 mg, 1 mg, IntraMUSCular, PRN, Minor Collier MD glucose oral gel 15 g, 15 g, Oral, PRN, Minor Collier MD heparin 25,000 units in dextrose 5% 250mL infusion (premix), 5-30 Units/kg/hr, IntraVENous, Continuous, Nils Boyle DO, Last Rate: 7.7 mL/hr at 01/28/25 0737, 13 Units/kg/hr at 01/28/25 0737 ipratropium-albuterol (Duo-Neb) 0.5-2.5 mg/3 mL nebulizer solution 3 mL, 3 mL, Nebulization, PRN, Darryn Higgins MD Lidocaine 4 % patch 1 patch, 1 patch, Topical, Daily, Steve Lassiter MD, 1 patch at 01/28/25 0848 melatonin tablet 5 mg, 5 mg, Per G Tube, Nightly PRN, Steve Lassiter MD metoprolol tartrate (Lopressor) injection 5 mg, 5 mg, IntraVENous, q5 min PRN, Earlene Lozano APRN - [employer], 5 mg at 01/25/25 1846 metoprolol tartrate (Lopressor) tablet 25 mg, 25 mg, Per G Tube, BID, Earlene Lozano APRN - [employer] SAL[employer]ER, 25 mg at 01/28/25 0848 midodrine (Proamatine) tablet 10 mg, 10 mg, Oral, BID, Arthur Joseph MD, 10 mg at 01/28/25 0848 naloxone (Narcan) injection 0.4 mg, 0.4 mg, IntraVENous, q5 min PRN, Steve Lassiter MD oxyCODONE (Roxicodone) immediate release tablet 5 mg, 5 mg, Oral, q6h PRN, 5 mg at 01/25/25 0303 OR oxyCODONE (Roxicodone) immediate release tablet 10 mg, 10 mg, Oral, q6h PRN, Noman Owens MD, 10 mg at 01/28/25 0848 prochlorperazine (Compazine) injection 5 mg, 5 mg, IntraVENous, q6h PRN, Sangeeta Reyes DO, 5 mg at 01/26/25 0134 sodium chloride 0.9 % infusion, 20 mL/hr, IntraVENous, Continuous, Inés Cotto PA-C, Last Rate: 20 mL/hr at 01/25/252003, 20 mL/hr at 01/25/252003 sodium chloride 0.9 % infusion, 250 mL/hr, IntraVENous, PRN, Sangeeta Reyes, DO sodium chloride 0.9 % infusion, 250 mL/hr, IntraVENous, PRN, Sangeeta Reyes, DO warfarin (Coumadin) tablet 0.5 mg, 0.5 mg, Oral, Once, Bob Watson MD Assessment Tracheostomy Tube Change GIB w/ bleeding worsened by Coumadin - Internal hemorrhoids Stage V Sacral Wound POA Supratherapeutic INR on Coumadin Acute on Chronic Anemia w/ blood loss anemia Aortic Valve Stenosis status post aortic valve replacement on coumadin Chronic Respiratory Failure with Hypoxia s/p Trach - now removed ESRD on HD Chronic Hypotension Afib on Coumadin Necrotic L toes Seen by GI, s/p colonoscopy Restarted heparin gtt, monitor aptt, further bleeding Transitioning to coumadin, appreciate pharmacy dose Follow HH, transfuse for Hg <7.00 Wound care HD per Nephrology Unasyn 6 weeks for sacral wound by ID PT OT 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 follow, dysphagia diet Past Medical History: Diagnosis Date Acute renal failure (ARF) ([facility]) 10/19/2019 Anemia 12/30/2021 Calcification of abdominal aorta ([facility]) 10/08/202309/[address] abd Diverticulosis 10/08/2023 ESRD on hemodialysis ([facility]) ([facility]) 10/26/2019 Hemodialysis patient ([facility] [facility]) ([facility]) HTN (hypertension) 12/01/2022 Hypertension IgA nephropathy 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 10/26/2019 Missed vaccination due to patient refusal 10/08/2023 Has a number of non-scientific based beliefs which interfere with his understanding and acceptance of the medical benefit of vaccination. Nonrheumatic aortic valve stenosis 10/08/2023 Paroxysmal A-fib ([facility]) ([facility]) 08/18/2023 Tobacco abuse 10/08/2023 Plan As above -am labs, replace lytes prn -Drug toxicity monitor: heparin, coumadin, cbc bleeding -increase activity -DVT prophylaxis: [] Lovenox [] Heparin [] SCDs [x] Encourage ambulation [x] Already on Anticoagulation Advance Directive: Full Code Family discussion: Anticipated Discharge - Date - tbd - Location - Skilled Facility - Pending the following - improvement, stability Total time spent (which include face to face and non face to face encounters) : 56 minutes Kamran Lira MD Division of Hospitalist Medicine Inpatient Medical Services/[facility] Anticoagulation Management Service ([facility]) Inpatient Warfarin Consult HPI: Jun Snyder is a 59 y.o. male admitted on 01/19/2025 for Complication of tracheostomy ([facility]) ([facility]) [J95.00] Past Medical History: Diagnosis Date Acute renal failure (ARF) ([facility]) 10/19/2019 Anemia 12/30/2021 Calcification of abdominal aorta ([facility]) 10/08/202309/[address] abd Diverticulosis 10/08/2023 ESRD on hemodialysis ([facility]) ([facility]) 10/26/2019 Hemodialysis patient ([facility]) ([facility]) HTN (hypertension) 12/01/2022 Hypertension IgA nephropathy 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 10/26/2019 Missed vaccination due to patient refusal 10/08/2023 Has a number of non-scientific based beliefs which interfere with his understanding and acceptance of the medical benefit of vaccination. Nonrheumatic aortic valve stenosis 10/08/2023 Paroxysmal A-fib ([facility]) ([facility]) 08/18/2023 Tobacco abuse 10/08/2023 Patient is on warfarin for Afib, mechanical AVR and has a goal INR 2.0 - 3.0. Warfarin is currently managed by facility, has yet to be seen by [facility]. Pt's home dose of warfarin is not yet established, managed by facility. S/sx of bleeding= concern for GIB, anemia Interacting medications= unasyn,heparin gtt. Vitamin K 2.5 mg PO administered 01/22. Labs: Recent Labs 01/26/25 0248 01/26/25 0952 01/27/25 0006 01/27/25 2147 01/28/25 0516 HGB 6.7* < > 9.0* 8.4* 8.5* HCT 21.0* < > 28.3* 26.3* 26.3* PLT 265 -- 273 -- 240 < > = values in this interval not displayed. Recent Labs 01/28/25 0516 INR 2.2* Date INR Dose 01/28 2.2 0.5mg 01/27 1.9 1mg 01/26 1.8 1 mg 01/25 1.7 0.5 mg 01/24 1.5 1mg 01/23 2.0 HOLD 01/22 8.1/3.1 HOLD vitamin K 2.5mg PO 01/21 7.9 Held 01/20 --- Held 01/19 2.7 HOLD Assessment/Plan: 1. INR is therapeutic. Will lower dose to 0.5mg due to INR increase from 1-9 --> 2.2 2. Monitor for s/s of bleeding and drug interactions. Will adjust dose accordingly 3. Will facilitate f/u at [facility] upon discharge Vu Guido PharmD [facility] is available daily [phone] via [employer]. If no response on [employer] then please page [phone]. [facility] Anticoagulation Management Service ([facility]) Inpatient Warfarin Consult HPI: Jun Snyder is a 59 y.o. male admitted on 01/19/2025 for Complication of tracheostomy ([facility]) ([facility]) [J95.00] Past Medical History: Diagnosis Date Acute renal failure (ARF) ([facility]) 10/19/2019 Anemia 12/30/2021 Calcification of abdominal aorta ([facility]) 10/08/202309/[address] abd Diverticulosis 10/08/2023 ESRD on hemodialysis ([facility]) ([facility]) 10/26/2019 Hemodialysis patient ([facility]) ([facility]) HTN (hypertension) 12/01/2022 Hypertension IgA nephropathy 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 10/26/2019 Missed vaccination due to patient refusal 10/08/2023 Has a number of non-scientific based beliefs which interfere with his understanding and acceptance of the medical benefit of vaccination. Nonrheumatic aortic valve stenosis 10/08/2023 Paroxysmal A-fib (CMS/HCC) (HCC) 08/18/2023 Tobacco abuse 10/08/2023 Patient is on warfarin for Afib, mechanical AVR and has a goal INR 2.0 - 3.0. Warfarin is currently managed by facility, has yet to be seen by [facility]. Pt's home dose of warfarin is not yet established, managed by facility. S/sx of bleeding= concern for GIB, anemia, Hemoglobin 9.0 s/p PRBC administration. Interacting medications= unasyn,heparin gtt. Vitamin K 2.5 mg PO administered 01/22. Labs: Recent Labs 01/25/25 0251 01/25/25 0953 01/26/25 0248 01/26/25 0952 01/26/25205201/27/25 0006 HGB 7.0* < > 6.7* 8.9* 9.0* 9.0* HCT 22.5* < > 21.0* 28.4* 27.9* 28.3* PLT 285 -- 265 -- -- 273 < > = values in this interval not displayed. Recent Labs 01/27/25 0006 INR 1.9* Date INR Dose 01/27 1.9 1mg 01/26 1.8 1 mg 01/25 1.7 0.5 mg 01/24 1.5 1mg 01/23 2.0 HOLD 01/22 8.1/3.1 HOLD vitamin K 2.5mg PO 01/21 7.9 Held 01/20 --- Held 01/19 2.7 HOLD Assessment/Plan: 1. INR is subtherapeutic due to held doses and vitamin K. Will continue with low dose - warfarin 1 mg again tonight ,considering recent bleeding concerns and supratherapeutic INR requiring vitamin K earlier in admission. 2. Monitor for s/s of bleeding and drug interactions. Will adjust dose accordingly 3. Will facilitate f/u at [facility] upon discharge Vu Guido PharmD [facility] is available daily [phone] via [employer]. If no response on [employer] Chat then please page [phone]. [facility] Respiratory Care Department Progress Note As part of the Respiratory Assessment Program (RAP), the following Respiratory Therapist evaluation has been completed, including a chart review and clinical/physical assessment. Respiratory Therapist RAP Evaluation Guideline Points 0 1 2 3 4 Points Strongly Consider History Factor No Pulmonary conditions Stable Pulmonary condition(s) Surgery or Intervention that may impact Pulmonary system (at risk) Surgery or Intervention that is impacting Pulmonary system Active Exacerbation of Pulmonary Condition 1 Respiratory Pattern Regular, RR= 12-18 RAMOS or Increased RR= 19-24 Irregular, or RR= 25-30 SOB, talk in short sentences, or RR= 31-35 Severe SOB, accessory muscle use, one word answers, or RR>35 0 Aerosol Med(s), High Flow O2 Breath Sounds Clear Diminished in 1 lobe Diminished in <= 2 lobes Adventitious breath sounds Coarse crackles, Wheezes, or Diminished in >2 lobes 0 Aerosol Med(s), Bronchial Hygiene, Hyperinflation Cough & Sputum Strong cough, no secretion retention or production Weak cough, no secretion retention or production Weak cough, w/ production (less often than Q2hr), or secretion retention No cough, w/ secretion retention or production (less often than Q2hr) Significant secretion production (more often than Q2hr) or mucus plug 0 Aerosol Med(s), Bronchial Hygiene, Hyperinflation Level of Activity Ambulatory Ambulatory with Assist Up in chair or edge of bed (dangle) Non-ambulatory, bedridden with active ROM Completely paralyzed or without active ROM 1 Triage 5 0-2 Triage 4 3-5 Triage 3 6-10 Triage 2 11-14 Triage 1 >=15 Total 2 Triage Score = 5 TRIAGE SCORING - SUGGESTED FREQUENCIES Aerosol Therapy Bronchial Hygiene Hyperinflation Triage Score Q4h & PRN 1 Q4hWA (QID) & PRN 2 TID & PRN 3 BID & PRN 4 PRN 5 Therapy(s) Indicated Yes/No Aerosol Medication Hyperinflation Bronchial Hygiene High Flow Oxygen Flow Rates PEF (L/Sec) IVC FVC FEV1 FEV1/FVC Patient instructed and returned demonstration on use of MDI (with spacer, as appropriate) None RT to enter/modify frequency of treatment order in EMR/EHR to match this RAP evaluation. Based on this RAP evaluation the following therapy is being initiated: At the following frequency: Comments: Thank you for involving Respiratory in the care of this patient, [facility] [place] Nephrology Progress Note Mr. Jun Snyder is a 59-year-old male with a history of end-stage renal disease (ESRD) on a Wednesday/Wednesday/Wednesday hemodialysis (HD) schedule. His ESRD has been complicated by chronic hypotension, for which he is maintained on midodrine 15 mg every 6 hours. He remains on intermittent HD with nephrology following, and no acute dialysis-related complications have been noted during this hospitalization. His chronic renal failure was confirmed on prior imaging showing renal atrophy. Management continues with a focus on volume support, monitoring of electrolytes, and hemodynamic stability, with adjustments made as needed based on his clinical course BP 123/71 (BP Location: Right arm, Patient Position: Lying) Pulse 81 Temp 36.8 C (98.2 F) (Temporal) Resp 21 Ht 1.778 m (5' 10) Wt 52 kg (114 lb 10.2 oz) SpO2 95% BMI 16.45 kg/m Input / Output: 24 HR: Intake/Output Summary (Last 24 hours) at 01/27/2025 0711 Last data filed at 01/27/2025 0612 Gross per 24 hour Intake 1430 ml Output 25 ml Net 1405 ml Physical Exam Alert and oriented x 1 NAD Neck: no JVD CV: RRR Lungs: CTA bilaterally Abd: soft, NT, ND Ext: no lower extremity edema Scheduled medications ampicillin-sulbactam, 3,000 mg, IntraVENous, q24h collagenase, , Topical, Daily ipratropium-albuterol, 3 mL, Nebulization, TID Lidocaine, 1 patch, Topical, Daily metoprolol tartrate, 25 mg, Per G Tube, BID midodrine, 10 mg, Oral, BID Continuous medications heparin, 5-30 Units/kg/hr, Last Rate: 12 Units/kg/hr (01/27/25611) sodium chloride, 20 mL/hr, Last Rate: 20 mL/hr (01/25/252003) PRN medications PRN medications: acetaminophen, collagenase, dextrose, dextrose, glucagon (rDNA), glucose, melatonin, metoprolol, naloxone, oxyCODONE OR oxyCODONE, prochlorperazine, sodium chloride, sodium chloride Results from last 7 days Lab Units 01/27/25 0006 01/23/25 0430 01/22/25 0419 SODIUM mmol/L 139 < > 132* POTASSIUM mmol/L 3.9 < > 4.4 CHLORIDE mmol/L 99 < > 94* CO2 mmol/L 23 < > 25 BUN mg/dL 9 < > 53* CREATININE mg/dL 2.27* < > 4.18* CALCIUM mg/dL 9.9 < > 9.8 PROTEIN TOTAL g/dL -- -- 7.6 BILIRUBIN TOTAL mg/dL -- -- 0.9 ALK PHOS U/L -- -- 274* ALT U/L -- -- 44* AST U/L -- -- 51* GLUCOSE mg/dL 115* < > 70* < > = values in this interval not displayed. Results from last 7 days Lab Units 01/27/25 00001/26/2524701/25/25 0251 MAGNESIUM mg/dL 1.9 2.0 2.1 Results from last 7 days Lab Units 01/27/25 00001/26/25205201/26/2552 01/26/2524701/25/25 0953 01/25/25 0251 WBC AUTO 10*3/uL 10.0 -- -- 8.7 -- 10.2 HEMOGLOBIN g/dL 9.0* 9.0* 8.9* 6.7* < > 7.0* HEMATOCRIT % 28.3* 27.9* 28.4* 21.0* < > 22.5* PLATELETS 10*3/uL 273 -- -- 265 -- 285 < > = values in this interval not displayed. Assessment & Plan: Problem: End-Stage Renal Disease (ESRD) on Hemodialysis Assessment: Patient with known ESRD on a Wednesday/Wednesday/Wednesday (MWF) hemodialysis schedule. Hemodialysis completed yesterday without complications. Chronic hypotension remains a concern; patient is maintained on midodrine 15 mg every 6 hours. No signs of volume overload or uremic symptoms (e.g., encephalopathy, pericarditis) at this time. Output monitoring ongoing -- no Payne catheter, tracking via clinical assessment. Weight today: 58.9 kg (previous documented weight stable). Plan adjusted considering ongoing bleeding risks (rectal bleeding history, held anticoagulation). Plan: Continue hemodialysis MWF schedule. Maintain midodrine 15 mg every 6 hours for blood pressure support. Monitor daily weights, intake/output (I/Os), and clinical volume status. Continue to monitor BUN/Creatinine and electrolyte panel post-HD sessions. No anticoagulation restarted at this time due to recent GI bleeding and supratherapeutic INR. Ensure appropriate vascular access site care. Nephrology to continue routine management and reassess HD prescription as needed based on volume status and labs. Please message me through [employer] chat with any questions or concerns. Wellington Nicole MD 01/27/2025 7:11 AM [facility] [place] [address] [place] [address], [address] [place] [id number] Office: [phone] ICU Progress Note Name: Jun Snyder : 1965(59 y.o.) Date: 01/27/25 Team: MICU Attending: DARRYN HIGGINS Subjective: Hospital Summary: Jun Snyder is a 59 y.o. male who who presented to [facility] 01/19 after inadvertent removal of his tracheostomy. He was transferred to [facility] ICU for surgical evaluation. On arrival he was maintaining appropriate O2 saturations on room air and the decision was made to leave the tracheostomy out. Able to be transferred out of ICU later that day. On 01/20 critical care and GI were consulted due to rectal bleeding. At that time patient determined to be stable to remain on GMF. On the morning of 01/21, GI recommended ICU transfer for EGD which revealed non-bleeding duodenal ulcer. At that time patient's sacral wound was noted to be bleeding. Have been trending INR's and H&H, currently stable. Received one unit of FFP per ZOË panel on 01/26 with no further evidence of bleed. Resumed Heparin ggt bridge to warfarin. Underwent HD successfully. hemodynamically stable Interval Events: Patient was revaluated at bedside during AM rounds. The patient is AO and in new acute distress. Patient reports feeling better this AM though continues to endorse chest wall pain. He is s/p HD. The patient is producing urine as expected for his hemodialysis requiring status. Had a BM and is passing flatulence. Scheduled Meds:ampicillin-sulbactam, 3,000 mg, IntraVENous, q24h collagenase, , Topical, Daily ipratropium-albuterol, 3 mL, Nebulization, TID Lidocaine, 1 patch, Topical, Daily metoprolol tartrate, 25 mg, Per G Tube, BID midodrine, 10 mg, Oral, BID Continuous Infusions:heparin, 5-30 Units/kg/hr, Last Rate: 12 Units/kg/hr (01/27/25124) sodium chloride, 20 mL/hr, Last Rate: 20 mL/hr (01/25/252003) Objective: Last Vitals: BP MAP 123/71 (01/27/25321) 87 (01/27/25321) Arterial BP MAP (na) (01/26/25611) Temp 36.8 C (98.2 F) (01/27/25321) Pulse 85 (01/27/25321) Resp 20 (01/27/25321) SpO2 98 % (01/27/25321) Weight 52 kg (114 lb 10.2 oz) (01/27/25328) BMI Body mass index is 16.45 kg/m . I/O: 01/26 0700 - 01/27 0659 In: 861 [P.O.:200; I.V.:661] Out: 25 [Drains:25] Oxygen Delivery: O2 Flow Rate (L/min): 2 L/min Invasive Lines / Tubes / Drains: Peripheral IV 01/19/25 Right Forearm (Active) Number of days: 5 Peripheral IV 01/23/25 Anterior;Distal;Right Forearm (Active) Number of days: 1 Enterostomy Gastric 20 Fr. LUQ (Active) Number of days: 71 Negative Pressure Wound Therapy Sacrum (Active) Number of days: 1 Central Line Indication: NA - patient does not have a central line Payne Indications: NA - patient does not have a Payne catheter Restraints: NA - patient is not restrained. Wounds: Wound/Incision 11/13/24 Pressure Injury Sacrum (Active) Date First Assessed/Time First Assessed: 11/13/24 1200 Present on Original Admission: No Primary Wound Type: Pressure Injury Location: Sacrum Pressure Injury Stage: Stage 3 Wound/Incision 11/15/24 Traumatic Arm Anterior;Left;Upper (Active) Date First Assessed/Time First Assessed: 11/15/24 0800 Primary Wound Type: Traumatic Location: Arm Wound Location Orientation: Anterior;Left;Upper Wound Description (Comments): Fistula Wound/Incision 11/15/24 Other (comment) Toe - third Anterior;Left (Active) Date First Assessed/Time First Assessed: 11/15/24 2213 Present on Original Admission: No Primary Wound Type: (c) Other (comment) Location: (c) Toe - third Wound Location Orientation: Anterior;Left Wound Description (Comments): Black 3rd and 4th ... Wound/Incision 11/19/24 Traumatic Achilles Left (Active) Date First Assessed/Time First Assessed: 11/19/24 1409 Primary Wound Type: Traumatic Location: Achilles Wound Location Orientation: Left Wound/Incision 11/19/24 Traumatic Heel Left (Active) Date First Assessed/Time First Assessed: 11/19/24 1410 Primary Wound Type: Traumatic Location: Heel Wound Location Orientation: Left Wound/Incision 01/19/25 Pressure Injury Head Posterior;Medial (Active) Date First Assessed/Time First Assessed: 01/19/25 0510 Present on Original Admission: Yes Primary Wound Type: Pressure Injury Location: Head Wound Location Orientation: Posterior;Medial Wound Description (Comments): scab, redness periwound Constitutional: General Appearance []WDWN []Obese []Cachectic [x]Thin []Ill Eyes: Inspection of Pupils/Irises Pupils round and react: [x]Yes []No Sclera: []Icteric [x]Non-Icteric Inspection of Conjunctiva/Lids Conjunctiva: []Injected [x]Non-Injected Lids: [x]Intact []Lesion Present ENT/Mouth: External Inspection of ears/nose [x] Normal [] Scar/Lesion/Mass Inspection of teeth/lips/gums Dentition: [x][place] Teeth []Dentures Lips/Gums: [x]Intact []Lesion Present Mucosa: [x][place] []Moist []Dry Neck: External Appearance Overall Appearance: [x]Normal []Lesion/Mass/Crepitus Present Trachea midline: [x]Yes []No tracheostomy site clean and dry. Thyroid [x]Normal []Enlarged []Tender []Mass []Absent Respiratory: Respiratory effort []Labored [x]Non-Labored [] Mechanically-Ventilated Auscultation [x]Clear []Crackles []Wheezes []Rhonchi Cardiovascular: Auscultation Rate: [x]Regular []Irregular []Tachycardia []Bradycardia Rhythm: [x]Regular []Irregular Murmur: [x]Present []Absent s/p 23mm [place] mechanical- 10/12/24 Extremities Peripheral Edema: []Present [x]Absent Varicosities: []Present [x]Absent Gastrointestinal: Abdomen Palpation: [x]Soft []Firm []Tender [x]Non-Tender []Distended [x]Non-distended Mass: []Present [x]Absent Bowel Sounds: [x]Present []Absent Hernia: []Present [x]Absent Liver/Spleen: [x]Hepatosplenomegaly [x]Organomegaly Absent Musculoskeletal: Inspection of Digits and Nails Cyanosis: []Present [x]Absent Clubbing: []Present [x]Absent Ischemia: []Present [x]Absent Infection: []Present [x]Absent Extremities GUAN Equally: Except ([]RUE []RLE []LUE []LLE) Strength/Tone: Intact and Normal ([x]RUE [x]RLE [x]LUE [x]LLE) Skin: Inspection: Peg tube in place, site CDI with no surrounding erythema. [x]Normal []Rash []Lesion []Ulcer Palpation [x]Warm []Cool []Dry []Clammy []Nodules []Induration []Skin-tightening Cap-Refill: [x] <3 sec [] >3 seconds (delayed) Neurologic: GCS EYE: 4 - Opens spontaneously GCS MOTOR: 6 - Obeys commands for movement GCS VERBAL: 5 - Oriented to person, place, time Total GCS: 15 [x] Sensation grossly intact Psych: Mental Status Alert: [x]Yes [] No Oriented: [x]x0 []X1 []X2 []x3 Mood/Affect [x]Normal []Flat []Agitated []Depressed []Anxious []Calm []Sedated []NAD [facility] within last 24 hours- BMP: Recent Labs 01/25/25 02501/26/2524701/27/25 0006 NA 138 136 139 K 3.9 5.1 3.9 CL 98 100 99 CO2 24 20* 23 BUN 15 19 9 CREATININE 2.54* 3.37* 2.27* CALCIUM 10.1 9.0 9.9 MG 2.1 2.0 1.9 PHOS 3.9 5.3* 3.4 LFTs:No results for input(s): AST, ALT, PROT, ALBUMIN, BILITOT, BILIRUBINU, ALKPHOS, LIPASE in the last 72 hours. Glucose: Recent Labs 01/24/25 1217 01/25/2525001/26/2524701/27/25 0006 GLUCOSE 77 74 75 115* Procal: No results for input(s): PROCAL in the last 72 hours. CBC: Recent Labs 01/25/2525001/25/25 0953 01/26/2524701/26/25 0952 01/26/25205201/27/25 0006 WBC 10.2 -- 8.7 -- -- 10.0 HGB 7.0* < > 6.7* 8.9* 9.0* 9.0* HCT 22.5* < > 21.0* 28.4* 27.9* 28.3* PLT 285 -- 265 -- -- 273 MCV 88.6 -- 87.1 -- -- 86.8 RDW 19.2* -- 19.3* -- -- 19.1* < > = values in this interval not displayed. ABGs: No results for input(s): PHART, YKJ5ZLL, PO2ART, DVL6NDR, SO2ART, W6HAVKIZ in the last 72 hours. Lactic Acid: Recent Labs 01/24/25 0830 LACTATE 0.9 INR: Recent Labs 01/25/25 0618 01/26/258 01/27/25 0006 INR 1.7* 1.8* 1.9* Cardiac Injury Profile: No results for input(s): CKTOTAL, CKMB, TROPONINI in the last 72 hours. Labs in Last 3 months: Lab Results Component Value Date TSH 1.190 08/17/2023 INR 1.9 (H) 01/27/2025 Microbiology- Blood Cx: Lab Results Component Value Date BLOODCX No growth at 5 days 01/01/2025 Sputum Cx: Lab Results Component Value Date RESPCULT Rare respiratory ila present. 12/30/2024 RESPCULT Many Staphylococcus aureus (A) 12/30/2024 Gram Stain: Lab Results Component Value Date LABGRAM (A) 01/02/2025 Many Polymorphonuclear leukocytes per low power field LABGRAM Many Gram positive cocci (A) 01/02/2025 LABGRAM Moderate Gram positive bacilli (A) 01/02/2025 PNA PCR: Lab Results Component Value Date HUMANMETAPNE Not Detected 11/15/2024 COVID19: No results found for: COVID19 Legionella Ag: Lab Results Component Value Date LEGIONELLAPN Not Detected 11/14/2024 Imaging- no significant change from prior studies Assessment and Plan: Principal Problem: Complication of tracheostomy (CMS/HCC) ([facility]) Active Problems: Severe malnutrition (CMS/HCC) ([facility]) BRBPR (bright red blood per rectum) GIB with unclear source Hx of internal hemorrhoids Non-bleeding duodenal ulcer Dysphagia Hgb: 7 > 7.0 (BL 9.1) s/p FFP on 01/22 x 1U & pRBC 1U 01/24 2U, 5/1.2 U pRBC, EGD/Colonoscopy 01/23 with no endoscopic evidence of bleeding or inflammation in the entire colon. Evidence of divirticular diseae and internal hemorrhoids. aPTT improving, - GI following - on Heparin gtt bridge to warfarin - Transfusion threshold Hb <7 - vWF panel, factor 8 ristocetin assay, and peripheral blood smear pending - [facility] following, monitor for s/s of bleeding - Check H/H and PT/INR q12 - Diet per 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 recs Appreciate Recs: Pureed solids and Thin liquids and meds crushed in puree and the following precautions: - Upright positioning for all PO intake - Small bites/sips - Frequent re-swallows to clear oral cavity - Pt/Ot Acute on chronic anemia In the setting of ESRD on HD and blood loss anemia - continue q12 H/H and PT/INR as above Paroxysmal A-fib with RVR - Continue home Metoprolol Sacral Wound Stage V with Osteomyelitis Left toes 1-4 Necrosis s/p sacral wound debridement of old blood clots, no active bleeding noted. Blood Clx: NGTD - ID following - Wound Cx with E. Faecalis and clostridium - Continue Unasyn 3000 mg IV (renally dosed) for 6 weeks 01/19 -03/02 - Gen surgery following - wet - dry dressing and wound VAC per gen surg recommendation - change 3x/wk and PRN - no further surgical intervention at this time - Wound care following - cleanse with NS, apply Betadine and allow to dry, leave TISHA daily and PRN - PVRs for circulation check - rec wound vac for sacral wound, change 3x/wk and PRN Hx CAD s/p CABG Severe Aortic stenosis s/p proesthetic mechanical valve S/p 23mm [place] Luis mechanical valve replacement on 10/12. TTE 11/24 without mechanical valve regurgitation or stenosis - heparin - Warfarin 0.5 mg once daily, pharmacy to dose ESRD (on HD [facility]) HAGMA - improving Hypotension, chronic S/P HD, tolerated it well - Management per nephro - Continue midodrine 15mg q6h - continue to trend BMP - Anion gap 20, BHB 10.5 - Lactic acid WNL Concern for aspiration Chronic hypoxemic respiratory failure Leukocytosis - CXR 01/24 with improved aeration, slightly worsening congestion - Will continue to trend CBC, monitor respiratory status - s/p tracheostomy, now removed - saturating appropriately on 2L NC - continue duo-neb TID-prn GI Prophylaxis: Pantoprazole PO DVT Prophylaxis: on heparin and warfarin Disposition: Stable for Transfer to [facility] Cosigned by Darryn Higgins MD at 01/27/2025 2:49 PM EDT Associated attestation - Darryn Higgins MD - 01/27/2025 2:49 PM EDT I have personally seen the patient and examined along with the resident. I personally obtained the francis and relevent portions of the history and performed physical exam. I reviewed the chart including MAR, labs, and radiology and agree with the patient's plan of action as discussed with the resident. This note reflects my plan of care as I have edited the note to reflect my findings and my assessment and plan. ROS documentation was reviewed and negative unless otherwise stated in HPI. Chief Complaint: GIB Additional pertinent interval history, ROS, and physical exam findings: Patient seen and examined. Awake, alert, no acute complaints. Doing well. HR controlled. Non-labored breathing on room air. Hemoglobin stable. Assessment and Plan: GIB w/ bleeding worsened by Coumadin - Internal hemorrhoids Stage V Sacral Wound POA Supratherapeutic INR on Coumadin Acute on Chronic Anemia w/ blood loss anemia Aortic Valve Stenosis status post aortic valve replacement on coumadin Chronic Respiratory Failure with Hypoxia s/p Trach - now removed ESRD on HD Chronic Hypotension Afib on Coumadin Necrotic L toes - GI colonoscopy w/ evidence of diverticulosis and internal hemorrhoids. - restarted heparin gtt with transition to coumadin w/ [facility] clinic. Monitoring for further bleeding. - extend H/Hs to q 12. Transfuse for Hgb <7. Type and screen if not completed. PT/INR/Zoë as needed. - wound care following for sacral wound - surgery recommending wound vac - breathing stable status post tracheostomy removal. - continue Unasyn for sacral wound x 6 weeks - ID following. - dysphagia pureed diet - PT/OT - Remains stable for transfer to [facility]. Code Status: Full Code Disposition: ok for [facility] Time spent preparing to see the patient, obtaining/reviewing separately obtained history, completing an appropriate medical examination of the patient, ordering medications/tests/procedures, documenting clinical information on the EMR, and/or coordinating care is a subsequent visit: 35 minutes (Level II). Darryn Higgins MD Pulmonary and Critical Care Medicine Attending Pager #[phone] Images from the original note were not included. PHYSICAL THERAPY [facility] Name/MRN: Jair Snyder ([id number]) Date: 01/26/2025 Attempt Note Pt on iHD. Will re-attempt as able. Chantal Rossi PT [facility] [place] Nephrology Progress Note Mr. Jun Snyder is a 59-year-old male with a history of end-stage renal disease (ESRD) on a Wednesday/Wednesday/Wednesday hemodialysis (HD) schedule. His ESRD has been complicated by chronic hypotension, for which he is maintained on midodrine 15 mg every 6 hours. He remains on intermittent HD with nephrology following, and no acute dialysis-related complications have been noted during this hospitalization. His chronic renal failure was confirmed on prior imaging showing renal atrophy. Management continues with a focus on volume support, monitoring of electrolytes, and hemodynamic stability, with adjustments made as needed based on his clinical course BP 125/82 Pulse 83 Temp 36.5 C (97.7 F) Resp 14 Ht 1.778 m (5' 10) Wt 58.9 kg (129 lb 13.6 oz) SpO2 100% BMI 18.63 kg/m Input / Output: 24 HR: Intake/Output Summary (Last 24 hours) at 01/26/2025 1355 Last data filed at 01/26/2025 0612 Gross per 24 hour Intake 1885.5 ml Output 100 ml Net 1785.5 ml Physical Exam Alert and oriented x 1 NAD Neck: no JVD CV: RRR Lungs: CTA bilaterally Abd: soft, NT, ND Ext: no lower extremity edema Scheduled medications ampicillin-sulbactam, 3,000 mg, IntraVENous, q24h collagenase, , Topical, Daily ipratropium-albuterol, 3 mL, Nebulization, TID Lidocaine, 1 patch, Topical, Daily metoprolol tartrate, 25 mg, Per G Tube, BID midodrine, 10 mg, Oral, BID warfarin, 1 mg, Oral, Once Continuous medications heparin, 5-30 Units/kg/hr, Last Rate: 7 Units/kg/hr (01/26/25 1219) sodium chloride, 20 mL/hr, Last Rate: 20 mL/hr (01/25/252003) PRN medications PRN medications: acetaminophen, collagenase, dextrose, dextrose, glucagon (rDNA), glucose, melatonin, metoprolol, naloxone, oxyCODONE OR oxyCODONE, prochlorperazine, sodium chloride, sodium chloride Results from last 7 days Lab Units 01/26/25 0248 01/23/25 0430 01/22/25 0419 SODIUM mmol/L 136 < > 132* POTASSIUM mmol/L 5.1 < > 4.4 CHLORIDE mmol/L 100 < > 94* CO2 mmol/L 20* < > 25 BUN mg/dL 19 < > 53* CREATININE mg/dL 3.37* < > 4.18* CALCIUM mg/dL 9.0 < > 9.8 PROTEIN TOTAL g/dL -- -- 7.6 BILIRUBIN TOTAL mg/dL -- -- 0.9 ALK PHOS U/L -- -- 274* ALT U/L -- -- 44* AST U/L -- -- 51* GLUCOSE mg/dL 75 < > 70* < > = values in this interval not displayed. Results from last 7 days Lab Units 01/26/25 0248 01/25/25 02501/24/25 0429 MAGNESIUM mg/dL 2.0 2.1 2.3 Results from last 7 days Lab Units 01/26/25 0952 01/26/258 01/25/25 1948 01/25/25 0953 01/25/25 0251 01/24/25 1217 01/24/25 0610 WBC AUTO 10*3/uL -- 8.7 -- -- 10.2 -- 11.5* HEMOGLOBIN g/dL 8.9* 6.7* 7.6* < > 7.0* < > 8.0* HEMATOCRIT % 28.4* 21.0* 23.8* < > 22.5* < > 27.0* PLATELETS 10*3/uL -- 265 -- -- 285 -- 355 < > = values in this interval not displayed. Assessment & Plan: Problem: End-Stage Renal Disease (ESRD) on Hemodialysis Assessment: Patient with known ESRD on a Wednesday/Wednesday/Wednesday (MWF) hemodialysis schedule. Hemodialysis completed yesterday without complications. Chronic hypotension remains a concern; patient is maintained on midodrine 15 mg every 6 hours. No signs of volume overload or uremic symptoms (e.g., encephalopathy, pericarditis) at this time. Output monitoring ongoing -- no Payne catheter, tracking via clinical assessment. Weight today: 58.9 kg (previous documented weight stable). Plan adjusted considering ongoing bleeding risks (rectal bleeding history, held anticoagulation). Plan: Continue hemodialysis MWF schedule. Maintain midodrine 15 mg every 6 hours for blood pressure support. Monitor daily weights, intake/output (I/Os), and clinical volume status. Continue to monitor BUN/Creatinine and electrolyte panel post-HD sessions. No anticoagulation restarted at this time due to recent GI bleeding and supratherapeutic INR. Ensure appropriate vascular access site care. Nephrology to continue routine management and reassess HD prescription as needed based on volume status and labs. Please message me through [employer] chat with any questions or concerns. Wellington Nicole MD 01/26/2025 1:55 PM [facility] [place] [address] [place] [address], [address] [place] [address] Office: [phone] Speech-Language Pathology Pt is a hold at this time, as he is receiving dialysis. Will re-attempt next date as schedule permits. Treva Mccallum MS. CCC-E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 ICU Transfer Checklist Hospital course: 59 y.o. male [facility] trach s/p removal, peg, HTN, afib, ESRD on TTS HD, aortic stenosis s/p mechanical valve who presented to [facility] 01/19 after inadvertent removal of his tracheostomy. Transferred to [facility] ICU for surgical evaluation. On arrival he was maintaining appropriate O2 saturations on room air and decision was made to leave the tracheostomy out. Transferred to F but later developed rectal bleeding and came back to ICU. GI completed EGD showing non-bleeding duodenal ulcer and colonoscopy showed internal hemorrhoids, thought to be source of bleeding. On heparin gtt in place of Coumadin for mechanical valve in setting of GIB. Nephro following for dialysis. On Unasyn for sacral osteomyelitis x6 weeks. Went into afib with RVR evening of 5/1, now NSR. Required 1 U pRBCs overnight 01/25. Transfer Med Reconciliation (resume home meds if able, convert to PO if able) Complete Antibiotics (name, indication, duration, convert to PO if able) Yes,Unasyn for sacral OM x6 weeks total Steroid (indication, duration, convert to PO if able) None Anticipated [place] Medications (ICU initiated) or Dose Changes and Indication No Permanently Discontinued Home Medications and Reason for medication contraindication No Payne Catheter (please remove if able. Note: place DC order) No Central Line (please remove if able. Note: place DC order) No Transfer Discussed with: [place], [facility] If additional questions for ICU team within 24 hours of ICU transfer, page python engineer ICU resident for clarifications. [facility] Anticoagulation Management Service ([facility]) Inpatient Warfarin Consult HPI: Jun Snyder is a 59 y.o. male admitted on 01/19/2025 for Complication of tracheostomy ([facility] ([facility]) [J95.00] Past Medical History: Diagnosis Date Acute renal failure (ARF) ([facility]) 10/19/2019 Anemia 12/30/2021 Calcification of abdominal aorta ([facility]) 10/08/202309/[address] abd Diverticulosis 10/08/2023 ESRD on hemodialysis ([facility]) ([facility]) 10/26/2019 Hemodialysis patient ([facility]) ([facility]) HTN (hypertension) 12/01/2022 Hypertension IgA nephropathy 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 10/26/2019 Missed vaccination due to patient refusal 10/08/2023 Has a number of non-scientific based beliefs which interfere with his understanding and acceptance of the medical benefit of vaccination. Nonrheumatic aortic valve stenosis 10/08/2023 Paroxysmal A-fib ([facility]) ([facility]) 08/18/2023 Tobacco abuse 10/08/2023 Patient is on warfarin for Afib, mechanical AVR and has a goal INR 2.0 - 3.0. Warfarin is currently managed by facility, has yet to be seen by [facility]. Pt's home dose of warfarin is not yet established, managed by facility. S/sx of bleeding= concern for GIB, anemia, Hemoglobin 8.9 s/p PRBC administration. Interacting medications= unasyn,heparin gtt. Vitamin K 2.5 mg PO administered 01/22. Labs: Recent Labs 01/24/25 0610 01/24/25 1217 01/25/25 0251 01/25/25 0953 01/25/25 1948 01/26/25 0248 01/26/25 0952 HGB 8.0* < > 7.0* < > 7.6* 6.7* 8.9* HCT 27.0* < > 22.5* < > 23.8* 21.0* 28.4* PLT 355 -- 285 -- -- 265 -- < > = values in this interval not displayed. Recent Labs 01/26/25247 INR 1.8* Date INR Dose 01/26 1.8 1 mg 01/25 1.7 0.5 mg 01/24 1.5 1mg 01/23 2.0 HOLD 01/22 8.1/3.1 HOLD vitamin K 2.5mg PO 01/21 7.9 Held 01/20 --- Held 01/19 2.7 HOLD Assessment/Plan: 1. INR is subtherapeutic due to held doses and vitamin K. Will continue with low dose - warfarin 1 mg tonight ,considering recent bleeding concerns and supratherapeutic INR requiring vitamin K earlier in admission. 2. Monitor for s/s of bleeding and drug interactions. Will adjust dose accordingly 3. Will facilitate f/u at [facility] upon discharge Adalberto Deleon PharmD [facility] is available daily [phone] via [employer]. If no response on [employer] Chat then please page [phone]. Images from the original note were not included. [facility] - Infectious Diseases Attending Progress Note Subjective: Following for sacral osteomyelitis- ASE and Clostridium. Hx mechanical AVR. Remains in ICU. Very uncomfortable and wants repositioned frequently. Afebrile. Tolerating abx. Objective: Vitals: Patient Vitals for the past 24 hrs: BP Temp Temp src Pulse Resp SpO2 01/26/25 1000 134/86 -- -- 88 (!) 28 96 % 01/26/25 0900 120/80 -- -- 82 13 98 % 01/26/25 0800 132/83 36.9 C (98.4 F) Temporal 83 16 100 % 01/26/25 0700 148/90 -- -- 93 21 96 % 01/26/25 0612 129/84 36.7 C (98 F) -- 88 17 -- 01/26/25 0600 -- -- -- 86 14 93 % 01/26/25 0500 140/82 -- -- 85 15 95 % 01/26/25 0400 122/79 -- -- 83 (!) 11 100 % 01/26/25 0355 125/81 36.7 C (98 F) Temporal 84 (!) 11 100 % 01/26/25 0339 125/82 37.2 C (99 F) -- 87 17 100 % 01/26/25 0300 125/82 -- -- 86 15 98 % 01/26/25 0200 128/76 -- -- 83 13 95 % 01/26/25 0100 116/74 -- -- 83 (!) 11 95 % 01/26/25 0000 111/77 36.7 C (98 F) Temporal 85 (!) 11 93 % 01/25/25 2300 115/80 -- -- 87 17 92 % 01/25/25 2200 112/73 -- -- 88 15 96 % 01/25/25 2100 105/60 -- -- 90 15 100 % 01/25/25 2000 92/63 36.7 C (98 F) Temporal (!) 133 (!) 28 94 % 01/25/25 1900 94/71 -- -- (!) 136 22 96 % 01/25/25 1800 114/71 -- -- 99 17 98 % 01/25/25 1700 109/75 -- -- 90 18 92 % 01/25/25 1657 -- -- -- (!) 170 -- -- 01/25/25 1600 115/79 36.9 C (98.4 F) Temporal (!) 150 22 92 % 01/25/25 1500 133/91 -- -- -- -- -- 01/25/25 1400 130/78 -- -- -- -- -- 01/25/25 1338 -- -- -- 96 22 95 % 01/25/25 1200 130/84 36.9 C (98.5 F) Temporal -- 19 97 % 01/25/25 1100 (!) 172/74 -- -- 102 16 95 % Physical Exam Vitals and nursing note reviewed. Constitutional: Appearance: He is ill-appearing. HENT: Head: Normocephalic and atraumatic. Right Ear: External ear normal. Left Ear: External ear normal. Nose: Nose normal. Mouth/Throat: Mouth: Mucous membranes are moist. Comments: Missing teeth Eyes: General: No scleral icterus. Extraocular Movements: Extraocular movements intact. Pulmonary: Effort: No respiratory distress. Breath sounds: No wheezing. Abdominal: Comments: + PEG; + healed scars Musculoskeletal: Comments: LUE AVF with thrill; + arthritic joint changes; unable to examine sacral wound due to positioning; L foot dry gangrene Skin: Findings: No rash. Neurological: Mental Status: He is alert and oriented to person, place, and time. Motor: Weakness present. Labs: Lab Results Component Value Date/Time NA 136 01/26/2025 0248 K 5.1 01/26/2025 0248 CL 100 01/26/2025 0248 CO2 20 (L) 01/26/2025 0248 BUN 19 01/26/2025 0248 CREATININE 3.37 (H) 01/26/2025 024 CREATININE 9.99 (H) 10/27/2019 0545 GLUCOSE 75 01/26/2025 0248 CALCIUM 9.0 01/26/2025 0248 PROT 7.6 01/22/2025 0419 BILITOT 0.9 01/22/2025 0419 ALKPHOS 274 (H) 01/22/2025 0419 AST 51 (H) 01/22/2025 0419 ALT 44 (H) 01/22/2025 0419 PROCAL 4.10 (H) 12/31/2024 0108 PROCAL 4.25 (H) 11/23/2024 1430 PROCAL 3.47 (H) 11/01/2024 0732 Lab Results Component Value Date/Time WBC 8.7 01/26/2025 0248 HGB 8.9 (L) 01/26/2025 0952 HGB 9.4 11/11/2024 0230 HCT 28.4 (L) 01/26/2025 0952 PLT 265 01/26/2025 0248 GRANULOCYTES 62.2 10/27/2019 0545 LYMPHOPCT 13.7 (L) 01/23/2025 1514 LYMPHOPCT 10 (L) 01/01/2025 0100 MONOPCT 13.7 (H) 01/23/2025 1514 MONOPCT 10 01/01/2025 0100 LABEOS 4.9 10/27/2019 0545 BASOPCT 1.0 01/23/2025 151 BASOPCT 1 01/01/2025 0100 NEUTROABS 7.0 01/23/2025 151 Micro: 01/22- C auris PCR- negative 01/22- CRAB PCR- negative 01/02- sacralwound cx- ASE, skin ila, Clostridium clostridioforme 01/01- blood cx- negative 12/30- blood cx- negative 12/30- resp cx- MSSA 12/25- blood cx- negative 12/14- resp cx- MSSA, resp ila 12/14- MRSA nasal PCR- + MSSA 12/11- resp cx- MSSA, resp ila 11/28- pleural fluid cx- negative 11/16- abd cx- C glabrata, ASE, skin ila 11/15- RVP- negative 11/14- BAL cx- resp ila 11/14- pneumonia PCR panel- negative Lines: AVF LUE PIV PEG Radiography/Echo/Other: 01/25- modified barium swallow- No vocal cord penetration or airway aspiration. 01/24- CXR- 1. Median sternotomy and valve repair. 2. Infiltrate in the lingula of the left upper lobe. 3. Prominence of the central pulmonary vasculature consistent with mild congestive heart failure/fluid overload. 4. The aeration of the lungs has improved mildly when compared to the previous study. 01/20- CTA abd/pelvis- 1. Imaging does not identify the site and/or source of the GI bleed. There is no intraluminal IV contrast appreciated. There are multiple loops of fluid-filled small and large bowel. The rectum is mildly distended with intraluminal fluid, consider diarrhea. 2. There is a large posterior decubitus ulcer which extends to the sacrum and coccyx with locules of air, fluid, and edema, correlate with clinical physical exam. This is new compared to 11/16/2024. 3. Colonic diverticulosis. 4. Renal atrophy. This patient has end-stage renal disease and is receiving dialysis. 5. Cholelithiasis. The gallbladder is decompressed with wall thickening measuring 6-7 mm (differential includes poor distention, systemic process, cholecystitis). Consider nuclear medicine HIDA scan and/or ultrasound. 6. Bilateral small pleural effusions with compressive atelectasis and/or infiltrate. Cardiomegaly. 7. Other: IVC filter. Percutaneous gastrostomy tube. Additional findings, as above. Select: 01/02- CT pelvis- Inflammatory ulceration overlies the distal sacrum and coccyx. No underlying bony erosions are detected on this study. Symptoms may guide the need for further imaging like MRI. 11/24- YG- Left Atrium: Left atrium is mildly dilated. Windsock appendage. No left atrial appendage thrombus noted. Light spontaneous echo contrast visualized in the left atrial appendage. No left atrial mass present. Left Ventricle: Not well visualized. Left ventricle size is normal. Moderate septal thickening. Unable to assess left ventricular systolic function. Unable to assess wall motion. Right Ventricle: Not well visualized. Right ventricle size is normal. Moderately reduced systolic function. Aortic Valve: Not well visualized. [place] mechanical aortic valve that is well-seated with a size of 23 mm. No regurgitation. No paravalvular regurgitation. Likely no stenosis based on appearance and flow characteristics but no gastric/trans-gastric views were done to obtain doppler images. Tricuspid Valve: Moderate (2+) regurgitation with a centrally directed jet. YG was done without entering stomach for gastric or trans-gastric views. Therefore, no gradients across the prosthetic AV were able to be obtained. Additional evaluation of LV and RV function was not undertaken due to these limitations. Brief successful DC cardioversion X 2 followed by return to atrial fibrillation. Further management per EP. Antimicrobials, Start/End Dates: Unasyn 3g IV q12h Impression: Sacral wound with osteomyelitis- ASE/ Clostridium - s/p bedside debridement with exposed bone (01/02) Trach dislodgement GIB Hx MSSA LRTIs Hx C glabrata/ ASE peritonitis- treated (10/2024) Pneumoperitoneum- s/p ex lap, Abhishek gastrostomy (11/16/24) Hx GIB s/p GDA embolization (10/14/24) PEA arrest x2 (10/14/24; 11/01/24) Hx mechanical AVR LLE DVTs s/p IVC filter; foot ischemia ESRD on HD via AVF A fib on amiodarone Plan: Continue unasyn x 6 weeks--> stop date 02/13. Ongoing wound care. Will need a tunneled powerline. OPAT is scanned in media tab with updated dosing. Dr. Quintana covers this weekend. D/w RN at the bedside. Based on diagnoses and management, combination of acute and chronic problems, exacerbations and/or acuity, this visit should be considered to be of moderate complexity. aRdha Yee MD Images from the original note were not included. [facility] Wound Care Progress Note Jun Snyder AGE: 59 y.o. GENDER: male : 1965 Subjective: HISTORY of PRESENT ILLNESS HPI Jun Snyder is a 59 y.o. male who presents for a wound follow up. HPI: Jun is a 59 yo male with a PMH of Trach and peg, HTN, paroxysmal a-fib, R occipital ICH, Tobacco abuse, ARF - dialysis (TTS; LUE AVF), diverticulosis, IgA nephropathy, severe that presented to [facility] ED from a facility due to trach dislodgement. Wound Care consulted for Pressure Injury sacrum and Ischemic ulcers to left toes Patient resting in [place] with floor RN present at bedside. Wound vac changed at time of visit with patient tolerating well. Denies any needs. PAST MEDICAL HISTORY Past Medical History: Diagnosis Date Acute renal failure (ARF) ([facility]) 10/19/2019 Anemia 12/30/2021 Calcification of abdominal aorta ([facility]) 10/08/202309/[address] abd Diverticulosis 10/08/2023 ESRD on hemodialysis ([facility]) ([facility]) 10/26/2019 Hemodialysis patient ([facility] ([facility]) HTN (hypertension) 12/01/2022 Hypertension IgA nephropathy 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 10/26/2019 Missed vaccination due to patient refusal 10/08/2023 Has a number of non-scientific based beliefs which interfere with his understanding and acceptance of the medical benefit of vaccination. Nonrheumatic aortic valve stenosis 10/08/2023 Paroxysmal A-fib (CMS/HCC) (HCC) 08/18/2023 Tobacco abuse 10/08/2023 PAST SURGICAL HISTORY Past Surgical History: Procedure Laterality Date APPENDECTOMY CARDIAC CATHETERIZATION N/A 10/09/2024 Performed by Bob Watson MD at [facility] Cardiac Cath/EP Lab CARDIAC CATHETERIZATION Bilateral 11/01/2024 Performed by Bob Watson MD at [facility] Cardiac Cath/EP Lab CARDIAC CATHETERIZATION N/A 11/01/2024 Performed by Bob Watson MD at [facility] Cardiac Cath/EP Lab COLONOSCOPY N/A 01/24/2025 Performed by Chadd Davis MD at [facility] ENDOSCOPY FISTULAGRAM (HISTORICAL) Left 09/15/2021 LEFT UPPER ARM HX AV FISTULA CREATION IR EMBOLIZATION 10/14/2024 IR EMBOLIZATION 10/14/2024 [facility] SPECIAL PROCEDURES IR FISTULAGRAM 08/07/2022 IR FISTULAGRAM 08/07/2022 SB IR IMAGING TONSILLECTOMY (HISTORICAL) FAMILY HISTORY Family History Problem Relation Name Age of Onset No Known Problems Mother No Known Problems Father SOCIAL HISTORY Social History Tobacco Use Smoking status: Every Day Current packs/day: 1.00 Average packs/day: 1.4 packs/day for 31.2 years (45.0 ttl pk-yrs) Types: Cigarettes Start date: 1993 Passive exposure: Past Smokeless tobacco: Never Tobacco comments: Started at 28, 3 PPD, tapered down to 1 PPD in 2020 after quitting drinking. 10/27/24 Vaping Use Vaping status: Never Used Substance Use Topics Alcohol use: Not Currently Drug use: Never ALLERGIES Allergies Allergen Reactions Lisinopril Swelling and Angioedema MEDICATIONS No current facility-administered medications on file prior to encounter. Current Outpatient Medications on File Prior to Encounter Medication Sig Dispense Refill epoetin rowan-epbx (Retacrit) 14629 UNIT/ML injection Inject 0.79 mL (7,900 Units) under the skin 1 (one) time per week. heparin 100 units/mL in dextrose 5 % infusion Infuse 294.5-1,767 Units/hr into a venous catheter continuous. heparin 1000 units/mL injection Infuse 2 mL (2,000 Units) into a venous catheter as needed (heparin dosing algorithm). heparin 1000 units/mL injection Infuse 4 mL (4,000 Units) into a venous catheter as needed (per heparin dosing algorithm). ipratropium-albuterol (Duo-Neb) 0.5-2.5 mg/3 mL nebulizer solution Take 3 mL by nebulization every 8 hours. Lidocaine 4 % patch Apply 1 patch topically daily. melatonin 5 MG tablet 1 tablet (5 mg) by Per G Tube route Nightly as needed (insomnia). metoprolol tartrate (Lopressor) 25 MG tablet 1 tablet (25 mg) by Per G Tube route 2 times daily. midodrine (Proamatine) 5 MG tablet 3 tablets (15 mg) by Per G Tube route every 6 hours. pantoprazole (ProtoNix) 40 MG injection Infuse 40 mg into a venous catheter 2 times daily. QUEtiapine (SEROquel) 25 MG tablet 1 tablet (25 mg) by Per G Tube route Nightly. warfarin (Coumadin) 1 MG tablet Take as directed per After Visit Summary. REVIEW OF SYSTEMS Pertinent items are noted in HPI. Objective: BP 123/69 Pulse 80 Temp 36.5 C (97.7 F) Resp (!) 10 Ht 1.778 m (5' 10) Wt 58.9 kg (129 lb 13.6 oz) SpO2 95% BMI 18.63 kg/m PHYSICAL EXAM General appearance: in no apparent distress, well developed and well nourished, in no respiratory distress and acyanotic, and alert Skin: warm and dry Pulmonary: Normal effort, no respiratory distress, no cyanosis Sacrum: Focused assessment on wound VAC dressing change. 1 piece black foam from wound with saline without any difficulties. Small amount of serosang drainage noted from wound. No purulence, bleeding or odor. All wounds and periwounds cleansed with saline, patted dry and cavilon no sting applied to periwound. Patient's stage 4 pressure wound measuring 8.5 x 4.2 x 2 cm with circumferential undermining. Wound bed with pink tissue, slough, adipose tissue, clots. Applied 1 piece of black foam. non-disposable Wound VAC well sealed at 125 mmHg continuous suction. 01/23/25 Left toes 1-4: Necrotic dry stable intact eschar with no drainage noted. Mahnaz wound with dry peeling flaky skin. 01/23/25 LABS CBC: Lab Results Component Value Date WBC 8.7 01/26/2025 HGB 8.9 (L) 01/26/2025 HCT 28.4 (L) 01/26/2025 MCV 87.1 01/26/2025 PLT 265 01/26/2025 BMP: Lab Results Component Value Date NA 136 01/26/2025 K 5.1 01/26/2025 CL 100 01/26/2025 CO2 20 (L) 01/26/2025 PHOS 5.3 (H) 01/26/2025 BUN 19 01/26/2025 CREATININE 3.37 (H) 01/26/2025 PT/INR: Lab Results Component Value Date PROTIME 18.3 (H) 01/26/2025 INR 1.8 (H) 01/26/2025 Prealbumin: No results found for: PREALBUMIN Albumin:No components found for: LABALBU Sed Rate:No results found for: SEDRATE Micro: No components found for: BC Assessment/Plan: Sacrum: Pressure Injury Stage 4 (POA) - Clean with NS, apply Vac. Place black foam to wound bed at 125mmHg continuous, change 3 times a week and PRN - Change cannister once a week or when full. - If suction fails: - remove vac dressing - cleanse wound with normal saline - pack wound with saline moistened gauze and change every 12 hours -Envella bed -waffle chair cushion -Q2hr/PRN turns -glide sheets for T&R -continence checks Q1-2 Hrs/PRN Nursing staff to perform dressing change: Left toes 1-4: Arterial Ulcer (Unknown) -cleanse with NS, apply Betadine and allow to dry, leave TISHA daily and PRN -Recommend PVRs for circulation check Nutritional support Wound Care to follow Recommend to follow up at [facility] wound care center after hospital discharge. Any questions or concerns please secure chat [facility] wound/ostomy. Thank you for the consult! I personally obtained the francis and critical portions of the history and physical exam. I reviewed the labs, imaging studies, and electronic medical record. I reviewed the chart documentation and discussed the patient with treatment team members. I have edited the note to reflect my clinical findings and my assessment and plan. Please note, the time of this note does not reflect the time I saw this patient today, but the time of this documentaton. Portions of this note including HPI, ROS, impression/plan, and examination may have been copied forward from admission to today as to provide important historical information essential in contributing to medical decision making. Documentation has been reviewed and edited as necessary to support clinical decision making for today's visit and to reflect my own independent evaluation of this patient. Decision making for today's visit and to reflect my own independent evaluation of this patient. Wound vac applied by Jesus Lacy RN and Wanda Quesada RN Cosigned by Ahsan Gill DO at 01/29/2025 4:37 PM EDT ICU Progress Note Name: Jun Snyder : 1965(59 y.o.) Date: 01/26/25 Team: MICU Attending: DARRYN HIGGINS Subjective: Hospital Summary: Jun Snyder is a 59 y.o. male who who presented to [facility] 01/19 after inadvertent removal of his tracheostomy. He was transferred to [facility] ICU for surgical evaluation. On arrival he was maintaining appropriate O2 saturations on room air and the decision was made to leave the tracheostomy out. Able to be transferred out of ICU later that day. On 01/20 critical care and GI were consulted due to rectal bleeding. At that time patient determined to be stable to remain on GMF. On the morning of 01/21, GI recommended ICU transfer for EGD which revealed non-bleeding duodenal ulcer. At that time patient's sacral wound was noted to be bleeding. Have been trending INR's and H&H, currently stable. Received one unit of FFP per ZOË panel, patient still having bloody stools with GI following. Interval Events: Patient was revaluated at bedside during AM rounds. Patient reports feeling better this AM though continues to endorse chest wall and epigastric pain. The patient is producing urine as expected for his hemodialysis requiring status. He denies having BM but is passing flatulence. Scheduled Meds:ampicillin-sulbactam, 3,000 mg, IntraVENous, q24h collagenase, , Topical, Daily ipratropium-albuterol, 3 mL, Nebulization, TID Lidocaine, 1 patch, Topical, Daily metoprolol tartrate, 25 mg, Per G Tube, BID [Held by provider] midodrine, 15 mg, Per G Tube, q6h Continuous Infusions:heparin, 5-30 Units/kg/hr, Last Rate: 9 Units/kg/hr (01/26/25338) sodium chloride, 20 mL/hr, Last Rate: 20 mL/hr (01/25/252003) Objective: Last Vitals: BP MAP 122/79 (01/26/25399) 93 (01/26/25399) Arterial BP MAP (na) (01/26/25338) Temp 36.7 C (98 F) (01/26/25354) Pulse 83 (01/26/25399) Resp (!) 11 (01/26/25399) SpO2 100 % (01/26/25399) Weight 58.9 kg (129 lb 13.6 oz) (01/19/25656) BMI Body mass index is 18.63 kg/m . I/O: 01/25 0700 - 01/26 0659 In: 626 [I.V.:626] Out: 100 [Drains:100] Ventilator: ETCO2 (mmHg): 17 mmHg Oxygen Delivery: O2 Flow Rate (L/min): 2 L/min Invasive Lines / Tubes / Drains: Peripheral IV 01/19/25 Right Forearm (Active) Number of days: 5 Peripheral IV 01/23/25 Anterior;Distal;Right Forearm (Active) Number of days: 1 Enterostomy Gastric 20 Fr. LUQ (Active) Number of days: 71 Negative Pressure Wound Therapy Sacrum (Active) Number of days: 1 Central Line Indication: NA - patient does not have a central line Payne Indications: NA - patient does not have a Payne catheter Restraints: NA - patient is not restrained. Wounds: Wound/Incision 11/13/24 Pressure Injury Sacrum (Active) Date First Assessed/Time First Assessed: 11/13/24 1200 Present on Original Admission: No Primary Wound Type: Pressure Injury Location: Sacrum Pressure Injury Stage: Stage 3 Wound/Incision 11/15/24 Traumatic Arm Anterior;Left;Upper (Active) Date First Assessed/Time First Assessed: 11/15/24 0800 Primary Wound Type: Traumatic Location: Arm Wound Location Orientation: Anterior;Left;Upper Wound Description (Comments): Fistula Wound/Incision 11/15/24 Other (comment) Toe - third Anterior;Left (Active) Date First Assessed/Time First Assessed: 11/15/24 2213 Present on Original Admission: No Primary Wound Type: (c) Other (comment) Location: (c) Toe - third Wound Location Orientation: Anterior;Left Wound Description (Comments): Black 3rd and 4th ... Wound/Incision 11/19/24 Traumatic Achilles Left (Active) Date First Assessed/Time First Assessed: 11/19/24 1409 Primary Wound Type: Traumatic Location: Achilles Wound Location Orientation: Left Wound/Incision 11/19/24 Traumatic Heel Left (Active) Date First Assessed/Time First Assessed: 11/19/24 1410 Primary Wound Type: Traumatic Location: Heel Wound Location Orientation: Left Wound/Incision 01/19/25 Pressure Injury Head Posterior;Medial (Active) Date First Assessed/Time First Assessed: 01/19/25 0510 Present on Original Admission: Yes Primary Wound Type: Pressure Injury Location: Head Wound Location Orientation: Posterior;Medial Wound Description (Comments): scab, redness periwound Constitutional: General Appearance []WDWN []Obese []Cachectic [x]Thin []Ill Eyes: Inspection of Pupils/Irises Pupils round and react: [x]Yes []No Sclera: []Icteric [x]Non-Icteric Inspection of Conjunctiva/Lids Conjunctiva: []Injected [x]Non-Injected Lids: [x]Intact []Lesion Present ENT/Mouth: External Inspection of ears/nose [x] Normal [] Scar/Lesion/Mass Inspection of teeth/lips/gums Dentition: [x][place] Teeth []Dentures Lips/Gums: [x]Intact []Lesion Present Mucosa: [x][place] []Moist []Dry Neck: External Appearance Overall Appearance: [x]Normal []Lesion/Mass/Crepitus Present Trachea midline: [x]Yes []No tracheostomy site clean and dry. Thyroid [x]Normal []Enlarged []Tender []Mass []Absent Respiratory: Respiratory effort []Labored [x]Non-Labored [] Mechanically-Ventilated Auscultation [x]Clear []Crackles []Wheezes []Rhonchi Cardiovascular: Auscultation Rate: [x]Regular []Irregular []Tachycardia []Bradycardia Rhythm: [x]Regular []Irregular Murmur: [x]Present []Absent s/p 23mm [place] Luis mechanical- 10/12/24 Extremities Peripheral Edema: []Present [x]Absent Varicosities: []Present [x]Absent Gastrointestinal: Abdomen Palpation: [x]Soft []Firm []Tender [x]Non-Tender []Distended [x]Non-distended Mass: []Present [x]Absent Bowel Sounds: [x]Present []Absent Hernia: []Present [x]Absent Liver/Spleen: [x]Hepatosplenomegaly [x]Organomegaly Absent Musculoskeletal: Inspection of Digits and Nails Cyanosis: []Present [x]Absent Clubbing: []Present [x]Absent Ischemia: []Present [x]Absent Infection: []Present [x]Absent Extremities GUAN Equally: Except ([]RUE []RLE []LUE []LLE) Strength/Tone: Intact and Normal ([x]RUE [x]RLE [x]LUE [x]LLE) Skin: Inspection: Peg tube in place, site CDI with no surrounding erythema. [x]Normal []Rash []Lesion []Ulcer Palpation [x]Warm []Cool []Dry []Clammy []Nodules []Induration []Skin-tightening Cap-Refill: [x] <3 sec [] >3 seconds (delayed) Neurologic: GCS EYE: 4 - Opens spontaneously GCS MOTOR: 6 - Obeys commands for movement GCS VERBAL: 5 - Oriented to person, place, time Total GCS: 15 [x] Sensation grossly intact Psych: Mental Status Alert: [x]Yes [] No Oriented: [x]x0 []X1 []X2 []x3 Mood/Affect [x]Normal []Flat []Agitated []Depressed []Anxious []Calm []Sedated []NAD [facility] Labs within last 24 hours- BMP: Recent Labs 01/24/25 0429 01/24/25 1217 01/25/25 02501/26/25 0248 NA 139 138 138 136 K 4.0 3.5 3.9 5.1 CL 98 100 98 100 CO2 21* 26 24 20* BUN 27* 9 15 19 CREATININE 3.62* 1.47* 2.54* 3.37* CALCIUM 10.2 9.3 10.1 9.0 MG 2.3 -- 2.1 2.0 PHOS 5.1* -- 3.9 5.3* LFTs:No results for input(s): AST, ALT, PROT, ALBUMIN, BILITOT, BILIRUBINU, ALKPHOS, LIPASE in the last 72 hours. Glucose: Recent Labs 01/23/25 0626 01/23/25 2317 01/24/25 0429 01/24/257 01/25/25 0251 01/26/25 0248 GLUCOSE -- -- 74 77 74 75 POCGLU 92 113* -- -- -- -- BHYDRXBUT -- -- 10.5* -- -- -- Procal: No results for input(s): PROCAL in the last 72 hours. CBC: Recent Labs 01/24/25 0610 01/24/25 1217 01/25/25 0251 01/25/25 0953 01/25/25 1302 01/25/25 1948 01/26/25 0248 WBC 11.5* -- 10.2 -- -- -- 8.7 HGB 8.0* < > 7.0* < > 7.7* 7.6* 6.7* HCT 27.0* < > 22.5* < > 24.4* 23.8* 21.0* PLT 355 -- 285 -- -- -- 265 MCV 94.1 -- 88.6 -- -- -- 87.1 RDW 19.4* -- 19.2* -- -- -- 19.3* < > = values in this interval not displayed. ABGs: No results for input(s): PHART, XOZ0QEQ, PO2ART, LHZ3SJN, SO2ART, G8VKSWHM in the last 72 hours. Lactic Acid: Recent Labs 01/24/25 0830 LACTATE 0.9 INR: Recent Labs 01/24/25 2348 01/25/25 0618 01/26/25 0248 INR 1.5* 1.7* 1.8* Cardiac Injury Profile: No results for input(s): CKTOTAL, CKMB, TROPONINI in the last 72 hours. Labs in Last 3 months: Lab Results Component Value Date TSH 1.190 08/17/2023 INR 1.8 (H) 01/26/2025 Microbiology- Blood Cx: Lab Results Component Value Date BLOODCX No growth at 5 days 01/01/2025 Sputum Cx: Lab Results Component Value Date RESPCULT Rare respiratory ila present. 12/30/2024 RESPCULT Many Staphylococcus aureus (A) 12/30/2024 Gram Stain: Lab Results Component Value Date LABGRAM (A) 01/02/2025 Many Polymorphonuclear leukocytes per low power field LABGRAM Many Gram positive cocci (A) 01/02/2025 LABGRAM Moderate Gram positive bacilli (A) 01/02/2025 PNA PCR: Lab Results Component Value Date HUMANMETAPNE Not Detected 11/15/2024 COVID19: No results found for: COVID19 Legionella Ag: Lab Results Component Value Date LEGIONELLAPN Not Detected 11/14/2024 Imaging- no significant change from prior studies Assessment and Plan: Principal Problem: Complication of tracheostomy (CMS/HCC) ([facility]) Active Problems: Severe malnutrition (CMS/HCC) ([facility]) BRBPR (bright red blood per rectum) GIB with unclear source, Non-bleeding duodenal ulcer Dysphagia Hgb: 7 > 7.0 (BL 9.1) s/p FFP on 01/22 x 1U & pRBC 1U 01/24 2U, 5/1.2 U pRBC, EGD/Colonoscopy 01/23 with no endoscopic evidence of bleeding or inflammation in the entire colon. Evidence of divirticular diseae and internal hemorrhoids. INR imrpoved. Required total: Modified Barium Swallow - GI following - on Heparin gtt bridge to warfarin - SAILAJA following, monitor for s/s of bleeding - Continue to trend H/H q6 hr - Transfusion threshold Hb <7 - vWF panel, factor 8 ristocetin assay, and peripheral blood smear pending - Diet per E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 recs - continue q12 H/H and PT/INR Appreciate Recs: Pureed solids and Thin liquids and meds crushed in puree and the following precautions: - Upright positioning for all PO intake - Small bites/sips - Frequent re-swallows to clear oral cavity - Pt/Ot Acute on chronic anemia In the setting of ESRD on HD and blood loss anemia - continue q12 H/H and PT/INR as above Paroxysmal A-fib with RVR Not sustained - Resume home Metoprolol Sacral Wound Stage V with Osteomyelitis Left toes 1-4: Arterial Ulcer (Unknown) s/p debridement of old blood clots, no active bleeding noted. Blood Clx: NGTD - ID following - Wound Cx with E. Faecalis and clostridium - Continue Unasyn 3000 mg IV (renally dosed) for 6 weeks 01/19 -03/02 - Gen surgery following - wet - dry dressing and wound VAC per gen surg recommendation - change 3x/wk and PRN - no further surgical intervention at this time - Wound care following - cleanse with NS, apply Betadine and allow to dry, leave TISHA daily and PRN - PVRs for circulation check - rec wound vac for sacral wound, change 3x/wk and PRN Hx CAD s/p CABG Severe Aortic stenosis s/p proesthetic mechanical valve S/p 23mm [place]. Luis mechanical valve replacement on 10/12. TTE 11/24 without mechanical valve regurgitation or stenosis - Continue heparin - Warfarin 0.5 mg once daily, pharmacy to dose ESRD (on HD MWF) HAGMA - improving Hypotension, chronic HAGMA likely secondary to ESRD, patient due for dialysis today - Management per nephro - resume midodrine 15mg q6h in prep - continue to trend BMP - Anion gap 20, BHB 10.5 - Lactic acid WNL Concern for aspiration Chronic hypoxemic respiratory failure Leukocytosis - CXR 01/24 with improved aeration, slightly worsening congestion - Will continue to trend CBC, monitor respiratory status - s/p tracheostomy, now removed - saturating appropriately on 2L NC - continue duo-neb TID-prn GI Prophylaxis: Pantoprazole IV DVT Prophylaxis: on heparin and warfarin Disposition: Transfer to [facility] Cosigned by Darryn Higgins MD at 01/26/2025 4:42 PM EDT Associated attestation - Darryn Higgins MD - 01/26/2025 4:42 PM EDT I have personally seen the patient and examined along with the resident. I personally obtained the francis and relevent portions of the history and performed physical exam. I reviewed the chart including MAR, labs, and radiology and agree with the patient's plan of action as discussed with the resident. This note reflects my plan of care as I have edited the note to reflect my findings and my assessment and plan. ROS documentation was reviewed and negative unless otherwise stated in HPI. Chief Complaint: GIB Additional pertinent interval history, ROS, and physical exam findings: Patient seen and examined. Awake, alert, following commands. Went into Afib RVR yesterday. Improved with metoprolol. HR controlled. Non-labored breathing. No acute distress. Hemoglobin downtrend, with supratherpeutic PTT. Transfusing 1 unit PRBC Assessment and Plan: GIB w/ bleeding worsened by Coumadin - Internal hemorrhoids Stage V Sacral Wound POA Supratherapeutic INR on Coumadin Acute on Chronic Anemia w/ blood loss anemia Aortic Valve Stenosis status post aortic valve replacement on coumadin Chronic Respiratory Failure with Hypoxia s/p Trach - now removed ESRD on HD Chronic Hypotension Afib on Coumadin Necrotic L toes - GI colonoscopy w/ evidence of diverticulosis and internal hemorrhoids. - restarted heparin gtt with transition to coumadin w/ [facility] clinic. Monitoring for further bleeding. - H/H q6. Transfuse for Hgb <7. Type and screen if not completed. PT/INR/Zoë as needed. - wound care following for sacral wound - surgery recommending wound vac - breathing stable status post tracheostomy removal. - continue Unasyn for sacral wound x 6 weeks - ID following. - modified barium swallow with speech today - PT/OT - recheck hemoglobin stable today. Stable for transfer to [facility]. Code Status: Full Code Disposition: Transfer to [facility] Time spent preparing to see the patient, obtaining/reviewing separately obtained history, completing an appropriate medical examination of the patient, ordering medications/tests/procedures, documenting clinical information on the EMR, and/or coordinating care is a subsequent visit: 35 minutes (Level II). Darryn Higgins MD Pulmonary and Critical Care Medicine Attending Pager #[phone] Images from the original note were not included. [facility] - Infectious Diseases Attending Progress Note Subjective: Following for sacral osteomyelitis- ASE and Clostridium. Hx mechanical AVR. Remains in ICU. C/o being very sore at the sacral site. No fevers. Asking for water. Objective: Vitals: Patient Vitals for the past 24 hrs: BP Temp Temp src Pulse Resp SpO2 01/25/25 1338 -- -- -- 96 22 95 % 01/25/25 1200 130/84 36.9 C (98.5 F) Temporal -- 19 97 % 01/25/25 1100 (!) 172/74 -- -- 102 16 95 % 01/25/25 1000 129/75 -- -- 98 17 95 % 01/25/25 0900 132/89 -- -- 94 17 98 % 01/25/25 0846 -- -- -- 95 18 98 % 01/25/25 0800 139/83 36.8 C (98.2 F) Temporal 98 19 95 % 01/25/25 0700 131/78 -- -- 94 16 99 % 01/25/25 0600 -- -- -- 96 16 99 % 01/25/25 0500 -- -- -- 100 16 97 % 01/25/25 0429 124/74 37.1 C (98.7 F) -- -- -- -- 01/25/25 0413 122/72 37.1 C (98.8 F) -- 97 16 97 % 01/25/25 0400 122/71 -- -- 97 19 97 % 01/25/25 0000 123/69 -- -- 101 18 96 % 01/24/25 2300 125/65 -- -- 101 (!) 27 97 % 01/24/25 2200 119/67 -- -- 101 (!) 27 100 % 01/24/25 2100 124/74 -- -- 99 22 98 % 01/24/25 2000 125/70 37 C (98.6 F) Temporal 97 23 100 % 01/24/25 1900 136/51 -- -- 91 18 98 % 01/24/25 1800 123/73 -- -- 96 19 100 % 01/24/25 1700 118/66 -- -- 99 25 99 % 01/24/25 1600 (!) 109/38 -- -- 94 17 100 % Physical Exam Vitals and nursing note reviewed. Constitutional: Appearance: He is ill-appearing. HENT: Head: Normocephalic and atraumatic. Right Ear: External ear normal. Left Ear: External ear normal. Nose: Nose normal. Mouth/Throat: Mouth: Mucous membranes are moist. Comments: Missing teeth Eyes: General: No scleral icterus. Extraocular Movements: Extraocular movements intact. Cardiovascular: Rate and Rhythm: Regular rhythm. Tachycardia present. Comments: + valvular click Pulmonary: Effort: No respiratory distress. Breath sounds: No wheezing. Abdominal: General: There is no distension. Palpations: Abdomen is soft. Tenderness: There is no abdominal tenderness. Comments: + PEG; + healed scars Musculoskeletal: Comments: LUE AVF with thrill; + arthritic joint changes; unable to examine sacral wound due to positioning Neurological: Mental Status: He is alert and oriented to person, place, and time. Motor: Weakness present. Labs: Lab Results Component Value Date/Time NA 138 01/25/2025 025 K 3.9 01/25/2025 025 CL 98 01/25/2025 025 CO2 24 01/25/2025 025 BUN 15 01/25/2025 025 CREATININE 2.54 (H) 01/25/2025 025 CREATININE 9.99 (H) 10/27/2019 0545 GLUCOSE 74 01/25/2025 025 CALCIUM 10.1 01/25/2025 025 PROT 7.6 01/22/2025 041 BILITOT 0.9 01/22/2025 041 ALKPHOS 274 (H) 01/22/2025 0419 AST 51 (H) 01/22/2025 0419 ALT 44 (H) 01/22/2025 041 PROCAL 4.10 (H) 12/31/2024 0108 PROCAL 4.25 (H) 11/23/2024 1430 PROCAL 3.47 (H) 11/01/2024 0732 Lab Results Component Value Date/Time WBC 10.2 01/25/2025 0251 HGB 7.7 (L) 01/25/2025 1302 HGB 9.4 11/11/2024 0230 HCT 24.4 (L) 01/25/2025 1302 PLT 285 01/25/2025 0251 GRANULOCYTES 62.2 10/27/2019 0545 LYMPHOPCT 13.7 (L) 01/23/2025 1514 LYMPHOPCT 10 (L) 01/01/2025 0100 MONOPCT 13.7 (H) 01/23/2025 1514 MONOPCT 10 01/01/2025 0100 LABEOS 4.9 10/27/2019 0545 BASOPCT 1.0 01/23/2025 1514 BASOPCT 1 01/01/2025 0100 NEUTROABS 7.0 01/23/2025 1514 Micro: 01/22- C auris PCR- negative 01/22- CRAB PCR- negative 01/02- sacralwound cx- ASE, skin ila, Clostridium clostridioforme 01/01- blood cx- negative 12/30- blood cx- negative 12/30- resp cx- MSSA 12/25- blood cx- negative 12/14- resp cx- MSSA, resp ila 12/14- MRSA nasal PCR- + MSSA 12/11- resp cx- MSSA, resp ila 11/28- pleural fluid cx- negative 11/16- abd cx- C glabrata, ASE, skin ila 11/15- RVP- negative 11/14- BAL cx- resp ila 11/14- pneumonia PCR panel- negative Lines: AVF LUE PIV PEG Radiography/Echo/Other: 01/25- modified barium swallow- No vocal cord penetration or airway aspiration. 01/24- CXR- 1. Median sternotomy and valve repair. 2. Infiltrate in the lingula of the left upper lobe. 3. Prominence of the central pulmonary vasculature consistent with mild congestive heart failure/fluid overload. 4. The aeration of the lungs has improved mildly when compared to the previous study. 01/20- CTA abd/pelvis- 1. Imaging does not identify the site and/or source of the GI bleed. There is no intraluminal IV contrast appreciated. There are multiple loops of fluid-filled small and large bowel. The rectum is mildly distended with intraluminal fluid, consider diarrhea. 2. There is a large posterior decubitus ulcer which extends to the sacrum and coccyx with locules of air, fluid, and edema, correlate with clinical physical exam. This is new compared to 11/16/2024. 3. Colonic diverticulosis. 4. Renal atrophy. This patient has end-stage renal disease and is receiving dialysis. 5. Cholelithiasis. The gallbladder is decompressed with wall thickening measuring 6-7 mm (differential includes poor distention, systemic process, cholecystitis). Consider nuclear medicine HIDA scan and/or ultrasound. 6. Bilateral small pleural effusions with compressive atelectasis and/or infiltrate. Cardiomegaly. 7. Other: IVC filter. Percutaneous gastrostomy tube. Additional findings, as above. Select: 01/02- CT pelvis- Inflammatory ulceration overlies the distal sacrum and coccyx. No underlying bony erosions are detected on this study. Symptoms may guide the need for further imaging like MRI. 11/24- YG- Left Atrium: Left atrium is mildly dilated. Windsock appendage. No left atrial appendage thrombus noted. Light spontaneous echo contrast visualized in the left atrial appendage. No left atrial mass present. Left Ventricle: Not well visualized. Left ventricle size is normal. Moderate septal thickening. Unable to assess left ventricular systolic function. Unable to assess wall motion. Right Ventricle: Not well visualized. Right ventricle size is normal. Moderately reduced systolic function. Aortic Valve: Not well visualized. St. Luis mechanical aortic valve that is well-seated with a size of 23 mm. No regurgitation. No paravalvular regurgitation. Likely no stenosis based on appearance and flow characteristics but no gastric/trans-gastric views were done to obtain doppler images. Tricuspid Valve: Moderate (2+) regurgitation with a centrally directed jet. YG was done without entering stomach for gastric or trans-gastric views. Therefore, no gradients across the prosthetic AV were able to be obtained. Additional evaluation of LV and RV function was not undertaken due to these limitations. Brief successful DC cardioversion X 2 followed by return to atrial fibrillation. Further management per EP. Antimicrobials, Start/End Dates: Unasyn 3g IV q12h Impression: Sacral wound with osteomyelitis- ASE/ Clostridium - s/p bedside debridement with exposed bone (01/02) Trach dislodgement GIB Hx MSSA LRTIs Hx C glabrata/ ASE peritonitis- treated (10/2024) Pneumoperitoneum- s/p ex lap, Abhishek gastrostomy (11/16/24) Hx GIB s/p GDA embolization (10/14/24) PEA arrest x2 (10/14/24; 11/01/24) Hx mechanical AVR LLE DVTs s/p IVC filter; foot ischemia ESRD on HD via AVF A fib on amiodarone Plan: Continue unasyn but decrease to 3g IV 24h--> stop date 02/13 to complete a 6 week course. Ongoing wound care. Will need a tunneled powerline. OPAT is updated and scanned in media tab with updated dosing. Will follow. Total critical care time provided was 35 minutes. This time is exclusive of time spent performing procedures. Radha Yee MD ICU Transfer Checklist Hospital course: 59 y.o. male PMH trach s/p removal, peg, HTN, afib, ESRD on TTS HD, aortic stenosis s/p mechanical valve who presented to [facility] 01/19 after inadvertent removal of his tracheostomy. Transferred to [facility] ICU for surgical evaluation. On arrival he was maintaining appropriate O2 saturations on room air and decision was made to leave the tracheostomy out. Transferred to F but later developed rectal bleeding and came back to ICU. GI completed EGD showing non-bleeding duodenal ulcer and colonoscopy showed internal hemorrhoids, thought to be source of bleeding. On heparin gtt in place of Coumadin for mechanical valve in setting of GIB. Nephro following for dialysis. On Unasyn for sacral osteomyelitis x6 weeks. Hb and pressures have been stable. Transfer Med Reconciliation (resume home meds if able, convert to PO if able) Complete Antibiotics (name, indication, duration, convert to PO if able) Yes,Unasyn for sacral OM x6 weeks total Steroid (indication, duration, convert to PO if able) None Anticipated [place] Medications (ICU initiated) or Dose Changes and Indication No Permanently Discontinued Home Medications and Reason for medication contraindication No Payne Catheter (please remove if able. Note: place DC order) No Central Line (please remove if able. Note: place DC order) No Transfer Discussed with: [place]. Russell [facility] [place] additional questions for ICU team within 24 hours of ICU transfer, page python engineer ICU resident for clarifications. Images from the original note were not included. Speech-Language Pathology SPEECH LANGUAGE PATHOLOGY [facility] Modified Barium Swallow Study Patient Name: Jun Snyder Evaluation Date: 01/25/2025 Date of : 1965 Admission Date: 01/19/2025 2:13 AM Age: 59 y.o. Room[facility]Bed: [facility] A IMPRESSION: The patient presents with moderate oral phase dysphagia associated with limited dentition, reduced oral bolus control, reduced/disorganized bolus formation and AP transit, and oral residue. There is mild pharyngeal phase dysphagia associated with base of tongue weakness, slightly reduced hyolaryngeal excursion, and cervical osteophytes. There was observed laryngeal penetration with thin liquid (teaspoon) and mildly thick liquid (teaspoon), no aspiration. RECOMMENDATION: Recommend Pureed solids and Thin liquids and meds crushed in puree and the following precautions: - Upright positioning for all PO intake - Small bites/sips - Frequent re-swallows to clear oral cavity Penetration-Aspiration Scale: 2. Contrast enters the airway, remains above the vocal folds, and is ejected from the airway (not seen in the airway at the end of the swallow). Pt would benefit from skilled acute E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 services to ensure diet tolerance, train swallow strategies, and re-attempt solids. Frequency: 3 days/wk for 2 weeks Barriers: Confusion and Communication deficit Prognosis: good D/C Recommendations: to be determined General Initial MBS completed to assess the efficiency of his swallow function, rule out aspiration, and make recommendations regarding safe dietary consistencies, effective compensatory strategies, and safe eating environment. Subjective: Patient was alert, cooperative, and followed simple directives. Hoarse vocal quality noted. Radiologist: Katiuska/Dajuan Prior MBSS?: No Baseline Diet: NPO with PEG tube feedings Current diet: Dietary Orders (From admission, onward) Start Ordered 01/24/25 0001 NPO diet with enteral medications Diet effective midnight Question Answer Comment Medications? with enteral medications NPO except: Sips of Water 01/23/25 1308 Textures tested: - thin liquid, (teaspoon, cup edge, straw, fed by clinician) - mildly thick liquid, (teaspoon, cup edge, fed by clinician) - puree, (teaspoon, fed by clinician) - minced and moist solids Patient position: lateral Past Medical History: Past Medical History: Diagnosis Date Acute renal failure (ARF) ([facility]) 10/19/2019 Anemia 12/30/2021 Calcification of abdominal aorta ([facility]) 10/08/202309/[address] abd Diverticulosis 10/08/2023 ESRD on hemodialysis ([facility] [place]) ([facility]) 10/26/2019 Hemodialysis patient ([facility] [place]) ([facility]) HTN (hypertension) 12/01/2022 Hypertension IgA nephropathy 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 10/26/2019 Missed vaccination due to patient refusal 10/08/2023 Has a number of non-scientific based beliefs which interfere with his understanding and acceptance of the medical benefit of vaccination. Nonrheumatic aortic valve stenosis 10/08/2023 Paroxysmal A-fib ([facility] [facility]) ([facility]) 08/18/2023 Tobacco abuse 10/08/2023 Past Surgical History: Past Surgical History: Procedure Laterality Date APPENDECTOMY CARDIAC CATHETERIZATION N/A 10/09/2024 Performed by Bob Watson MD at [facility] Cardiac Cath/EP Lab CARDIAC CATHETERIZATION Bilateral 11/01/2024 Performed by Bob Watson MD at [facility] Cardiac Cath/EP Lab CARDIAC CATHETERIZATION N/A 11/01/2024 Performed by Bob Watson MD at [facility] Cardiac Cath/EP Lab COLONOSCOPY N/A 01/24/2025 Performed by Chadd Davis MD at [facility] ENDOSCOPY FISTULAGRAM (HISTORICAL) Left 09/15/2021 LEFT UPPER ARM HX AV FISTULA CREATION IR EMBOLIZATION 10/14/2024 IR EMBOLIZATION 10/14/2024 [facility] SPECIAL PROCEDURES IR FISTULAGRAM 08/07/2022 IR FISTULAGRAM 08/07/2022 SB IR IMAGING TONSILLECTOMY (HISTORICAL) Admission Diagnosis: Patient Active Problem List Diagnosis Date Noted Severe malnutrition (MAIN LINE HE[facility]) ([facility]) 01/19/2025 Complication of tracheostomy ([facility] ([facility]) 01/19/2025 rn long term care (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 01/12/2025 Acute respiratory failure with hypoxia ([facility]) [J96.01] 01/08/2025 Tracheostomy care ([facility]) [Z43.0] 01/08/2025 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[facility]) 01/08/2025 Sacral osteomyelitis ([facility] ([facility]) 01/03/2025 Pneumonia of both lungs due to methicillin susceptible Staphylococcus aureus (MSSA) ([facility]) 01/01/2025 Leukocytosis 12/30/2024 Decubitus ulcer of sacral region, unstageable ([facility]) 12/30/2024 Peritonitis due to fungus ([facility]) 11/30/2024 History of abdominal surgery 11/30/2024 Leg DVT (deep venous thromboembolism), acute, left ([facility]) 11/30/2024 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, 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 of skin ([facility]) 11/30/2024 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[facility]) 11/30/2024 Pleural effusion 11/28/2024 Gastric ulceration 2024 Atrial flutter, unspecified type ([facility]) 10/03/2024 RSV (acute bronchiolitis due to respiratory syncytial virus) 10/03/2024 Diverticulosis 10/08/2023 Nonrheumatic aortic valve stenosis 10/08/2023 Calcification of abdominal aorta ([facility]) 10/08/2023 Missed vaccination due to patient refusal 10/08/2023 Tobacco abuse 10/08/2023 Alcohol use disorder in remission 10/08/2023 Paroxysmal A-fib ([facility] ([facility]) 08/18/2023 HTN (hypertension) 12/01/2022 ESRD on hemodialysis ([facility] ([facility]) 10/26/2019 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 10/26/2019 BRBPR (bright red blood per rectum) 01/19/2025 Aortic stenosis 10/03/2024 Upper GI bleed 10/03/2024 S/P AVR 10/03/2024 Acute hypoxic respiratory failure ([facility]) 10/03/2024 Acute encephalopathy 10/03/2024 Pneumoperitoneum 10/03/2024 Anemia 12/30/2021 Pain: Pt denies any current pain. Reason for current admission: Patient is a 59 yo male with a PMH of Trach and peg, HTN, paroxysmal a-fib, R occipital ICH, Tobacco abuse, ARF - dialysis (TTS; LUE AVF), diverticulosis, IgA nephropathy, severe that presented to [facility] ED from a facility due to trach dislodgement. Per patient, was trying to disconnect his vent to transfer to another room but accidentally pulled out his tracheostomy. This event happened approximately 45 minutes before ED arrival. ED attempted to place tracheostomy tube back but were unsuccessful. Decision was made to transfer patient to [facility] ICU for further airway management and determine if replacement tracheostomy is needed. Upon seeing the patient, was A&Ox4, but was complaining of SOB with chest pressure and left sided chest pain that is stabbing in nature. Girlfriend bedside and patient states this has been an on going issues since he was coded back in Sep. Otherwise than that patient has no complaints. Girlfriend is concerned about patient mentation, but states he has been like this since his ICH. Oral Phase There is reduced oral bolus containment with thin liquids resulting in spillage to the level of the pyriforms. Puree and mildly thick liquids spilled to the valleculae prior to the swallow. Mastication, bolus formation and AP transit are prolonged and uncoordinated. Patient often used a piecemeal style of deglutition. Oral clearance was achieved with the use of spontaneous re-swallows. Pharyngeal Phase A cervical osteophyte was noted at C-5. The onset of the swallow is timely. Hyolaryngeal excursion is slightly reduced. Epiglottic deflection is complete. There is trace residue in the valleculae and pyriforms associated with tongue base weakness. There is penetration into the laryngeal vestibule above the level of the vocal cords with teaspoon presentations of thin and mildly thick liquids. There is no vocal cord penetration or aspiration with any PO presented. Esophageal Phase The esophagus was not visualized below the level of the UES. Noted: N/A Education The preliminary results of this evaluation were briefly shared with the patient. Goals Patient Stated Goal: to be suctioned Encounter Problems Encounter Problems (Active) Swallowing Patient will tolerate the least restrictive diet consistency to allow for safe consumption of daily meals Start: 01/25/25 Expected End: 02/08/25 Patient will tolerate recommended food and liquid consistencies without clinical signs and symptoms of aspirations Start: 01/25/25 Expected End: 02/08/25 Encounter Problems (Resolved) Swallowing Patient will participate in instrumental assessment of swallowing as appropriate (Completed) Start: 01/19/25 Expected End: 02/02/25 Resolved: 01/25/25 Therapy Time E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 Individual Minutes Time In: 1145 Time Out: 1205 Minutes: 20 Christina Nunez MA, CCC/E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 [facility] Anticoagulation Management Service ([facility]) Inpatient Warfarin Consult HPI: Jun Snyder is a 59 y.o. male admitted on 01/19/2025 for Complication of tracheostomy ([facility] ([facility]) [J95.00] Past Medical History: Diagnosis Date Acute renal failure (ARF) ([facility]) 10/19/2019 Anemia 12/30/2021 Calcification of abdominal aorta ([facility]) 10/08/202309/[address] abd Diverticulosis 10/08/2023 ESRD on hemodialysis ([facility] ([facility]) 10/26/2019 Hemodialysis patient ([facility]) ([facility]) HTN (hypertension) 12/01/2022 Hypertension IgA nephropathy 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 10/26/2019 Missed vaccination due to patient refusal 10/08/2023 Has a number of non-scientific based beliefs which interfere with his understanding and acceptance of the medical benefit of vaccination. Nonrheumatic aortic valve stenosis 10/08/2023 Paroxysmal A-fib ([facility] ([facility]) 08/18/2023 Tobacco abuse 10/08/2023 Patient is on warfarin for Afib, mechanical AVR and has a goal INR 2.0 - 3.0. Warfarin is currently managed by facility, has yet to be seen by [facility]. Pt's home dose of warfarin is not yet established, managed by facility. S/sx of bleeding= concern for GIB, anemia, bloody BM overnight. Hemoglobin 8.0. Interacting medications= Unasyn, on heparin gtt. Vitamin K 2.5 mg PO administered 01/22. Labs: Recent Labs 01/23/25 1514 01/24/25 0610 01/24/25 1217 01/24/25 2348 01/25/25 0251 01/25/25 0953 HGB 7.9* 7.9* 8.0* < > 6.3* 7.0* 8.0* HCT 25.3* 25.1* 27.0* < > 20.4* 22.5* 24.6* PLT 346 355 -- -- 285 -- < > = values in this interval not displayed. Recent Labs 01/25/25 0618 INR 1.7* Date INR Dose 01/25 1.7 0.5 mg 01/24 1.5 1mg 01/23 2.0 HOLD 01/22 8.1/3.1 HOLD vitamin K 2.5mg PO 01/21 7.9 Held 01/20 --- Held 01/19 2.7 HOLD Assessment/Plan: 1. INR is subtherapeutic due to held doses and vitamin K. Will continue with low dose - warfarin 0.5 mg tonight ,considering recent bleeding concerns, increase in INR following 1 mg administration, and supratherapeutic INR earlier in admission. 2. Monitor for s/s of bleeding and drug interactions. Will adjust dose accordingly 3. Will facilitate f/u at [facility] upon discharge Adalberto Deleon PharmD, PharmD [facility] is available daily [phone] via [employer]. If no response on [employer] Chat then please page [phone]. [facility] Ne[facility]rology Progress Note Mr. Jun Snyder is a 59-year-old male with a history of end-stage renal disease (ESRD) on a Wednesday/Wednesday/Wednesday hemodialysis (HD) schedule. His ESRD has been complicated by chronic hypotension, for which he is maintained on midodrine 15 mg every 6 hours. He remains on intermittent HD with nephrology following, and no acute dialysis-related complications have been noted during this hospitalization. His chronic renal failure was confirmed on prior imaging showing renal atrophy. Management continues with a focus on volume support, monitoring of electrolytes, and hemodynamic stability, with adjustments made as needed based on his clinical course BP 129/75 Pulse 98 Temp 36.8 C (98.2 F) (Temporal) Resp 17 Ht 1.778 m (5' 10) Wt 58.9 kg (129 lb 13.6 oz) SpO2 95% BMI 18.63 kg/m Input / Output: 24 HR: Intake/Output Summary (Last 24 hours) at 01/25/2025 1144 Last data filed at 01/25/2025 0600 Gross per 24 hour Intake 1132.5 ml Output -- Net 1132.5 ml Physical Exam Alert and oriented x 1 NAD Neck: no JVD CV: RRR Lungs: CTA bilaterally Abd: soft, NT, ND Ext: no lower extremity edema Scheduled medications ampicillin-sulbactam, 3,000 mg, IntraVENous, q12h collagenase, , Topical, Daily ipratropium-albuterol, 3 mL, Nebulization, TID Lidocaine, 1 patch, Topical, Daily [Held by provider] metoprolol tartrate, 25 mg, Per G Tube, BID [Held by provider] midodrine, 15 mg, Per G Tube, q6h Continuous medications heparin, 5-30 Units/kg/hr, Last Rate: 11 Units/kg/hr (01/25/25 1001) sodium chloride, 20 mL/hr, Last Rate: 20 mL/hr (01/23/25 1648) PRN medications PRN medications: acetaminophen, collagenase, dextrose, dextrose, glucagon (rDNA), glucose, melatonin, naloxone, oxyCODONE OR oxyCODONE, prochlorperazine, sodium chloride, sodium chloride, sodium chloride, sodium chloride Results from last 7 days Lab Units 01/25/25 0251 01/23/25 0430 01/22/25 0419 SODIUM mmol/L 138 < > 132* POTASSIUM mmol/L 3.9 < > 4.4 CHLORIDE mmol/L 98 < > 94* CO2 mmol/L 24 < > 25 BUN mg/dL 15 < > 53* CREATININE mg/dL 2.54* < > 4.18* CALCIUM mg/dL 10.1 < > 9.8 PROTEIN TOTAL g/dL -- -- 7.6 BILIRUBIN TOTAL mg/dL -- -- 0.9 ALK PHOS U/L -- -- 274* ALT U/L -- -- 44* AST U/L -- -- 51* GLUCOSE mg/dL 74 < > 70* < > = values in this interval not displayed. Results from last 7 days Lab Units 01/25/25 0251 01/24/25 0429 01/23/25 0430 MAGNESIUM mg/dL 2.1 2.3 2.1 Results from last 7 days Lab Units 01/25/25 0953 01/25/25 0251 01/24/25 2348 01/24/25 1217 01/24/25 0610 01/23/25 1514 WBC AUTO 10*3/uL -- 10.2 -- -- 11.5* 10.9* HEMOGLOBIN g/dL 8.0* 7.0* 6.3* < > 8.0* 7.9* 7.9* HEMATOCRIT % 24.6* 22.5* 20.4* < > 27.0* 25.3* 25.1* PLATELETS 10*3/uL -- 285 -- -- 355 346 < > = values in this interval not displayed. Assessment & Plan: Problem: End-Stage Renal Disease (ESRD) on Hemodialysis Assessment: Patient with known ESRD on a Wednesday/Wednesday/Wednesday (MWF) hemodialysis schedule. Hemodialysis completed yesterday without complications. Labs show ongoing elevated BUN 15 mg/dL and creatinine 2.54 mg/dL, consistent with ESRD. Electrolytes post-HD are relatively stable: sodium 138 mmol/L, potassium 3.9 mmol/L, chloride 98 mmol/L, CO? 24 mmol/L. Chronic hypotension remains a concern; patient is maintained on midodrine 15 mg every 6 hours. No signs of volume overload or uremic symptoms (e.g., encephalopathy, pericarditis) at this time. Output monitoring ongoing -- no Payne catheter, tracking via clinical assessment. Weight today: 58.9 kg (previous documented weight stable). Plan adjusted considering ongoing bleeding risks (rectal bleeding history, held anticoagulation). Plan: Continue hemodialysis MWF schedule. Maintain midodrine 15 mg every 6 hours for blood pressure support. Monitor daily weights, intake/output (I/Os), and clinical volume status. Continue to monitor BUN/Creatinine and electrolyte panel post-HD sessions. No anticoagulation restarted at this time due to recent GI bleeding and supratherapeutic INR. Ensure appropriate vascular access site care. Nephrology to continue routine management and reassess HD prescription as needed based on volume status and labs. Please message me through [employer] chat with any questions or concerns. Wellington Nicole MD 01/25/2025 11:44 AM [facility] [address], [address] [place] [address] Office: [phone] Images from the original note were not included. Palliative Care Progress note Chief Complaint: Jun Snyder is a 59 y.o. male with chief complaint of dislodged tracheostomy. Palliative Care is signing off, please re-consult if needed. (add SIGNOFFTRANSITION dotphrase below) Assessment/Plan Goals of care - Patient has capacity to make medical decisions - legal surrogate decision maker PRIETOREBECCA Omar, 1st alternate is significant other Toma - goals of care include: 1) to continue current management, continue with aggressive medical therapy, procedures, antibiotics at this time - planning to eventually discharge to [facility] - will forward chart to Palliative RN Coordinator to assist with possible palliative care follow up Bright red blood per rectum vs bleeding sacral wound Chronic Anemia - on coumadin, INR supratherapeutic, coumadin held - GI consulted - protonix - CTA negative for source of bleeding, EGD done 01/21 - nonbleeding ulcer - had colonoscopy 01/24 - diverticulosis and internal hemorrhoids - h/h stable Left Foot Ulcers Sacral Osteomyelitis - currently on antibiotics at SNF for 6 weeks (through 02/13/25) - sacral wound cx: ASEC, Clostridium - ID following - now with wound vac - oxycodone 5-10 mg q 6 hr prn pain - recommend any manipulation of wound, trying to give dose 1 hour prior End Stage Renal Disease - initiated after PEA in 09/2024 leading to needing CRRT - iHD M/W/F History of Aortic Stenosis s/p AV replacement Supratherapeutic INR - [employer] valve in 09/2024 - coumadin held due to bleeding and supratherapeutic levels Chronic respiratory failure s/p tracheostomy Tracheostomy dislodgement - has been saturating well without trach on RA so has not been replaced Palliative Care Encounter - Code Status: Full Code - Jun Snyder has been seen in consultation by [facility] Palliative Care during their admission to [facility]. They currently have no uncontrolled symptoms and have established goals of care and we have signed off of their case. PC Time Stamp: Total of 45 minutes spent on this encounter including Chart review, Patient visit and exam, Documentation in EHR, Care coordination, Communicating with primary attending or other consultants, Obtaining and/or reviewing separately obtained history, and Counseling and educating patient/family/caregiver. Discharge planning: Ready for discharge from Palliative Care perspective, outpatient/home/ECF follow-up arranged Patient meets criteria for general inpatient hospice care: No Palliative Care IDT members involved: Palliative Care Physician Internist Discussed the plan of care with the other interdisciplinary team (IDT) members of the Palliative Care and Hospice teams and Patient. Tex Cotto MD Subjective: Subjective/Events Mr. Jun Snyder is a 59 year old male with a complicated history. On chart review: 10/12/24: s/p AVR (23mm [facility] mechanical), YG with Dr. Montemayor 10/14/24: s/p PEA Arrest Hypovolemic Shock Code Intubated, EGD, GDA Embolization D1 10/15/24: L subclavian transvenous pacer placement 10/18/24: Extubated; reintubated 10/19/24 10/24/24: Extubated 11/01/24: Code Blue PEA arrest, re intubated started on CRRT 11/14/24: s/p Trach and Peg with Dr. Ramirez 11/16/24: OR for diagnostic laparoscopy, EGD, abhishek gastrostomy tube placement -- noted to have bile peritonitis 11/28/24: transferred to [facility] He ended up developing sacral ulcer and osteomyelitis at [facility] He then ended up dislodging his tracheostomy, and was brought to [facility] ED for further care. Palliative care consulted for goals of care. 01/25/2025 - Met with patient today. Discussed current care. He states was having significant pain in sacral wound, oxycodone helps with this. States since getting wound vac it is a little better. Discussed getting oxycodone 1 hour prior to any manipulation of wound. Discussed barium swallow today, as well as eventually transferring to floor. He is ok with this. He states he is feeling much better. Planning to eventually discharge to [facility]. Discussed trying to get palliative care to possibly see him there. Pain Assessment - 3 Location: sacrum Description: aching and sharp Frequency:Daily Duration: day(s) Alleviating Factors: pain medication Exacerbating Factors: unable to associate with any factor Effect:Change in Function and Interference with Activities Palliative Care Assessments: Goals of care: Continue Current Management Advanced Directives: No Known Advance Directive Functional Assessment: PPS 40% mainly in bed; can't do any work/extensive disease; mainly assistance; normal or reduced intake; full or drowsy or confusion Prognosis: uncertain at this time Spiritual Assessment: No spiritual distress identified Bereavement and Grief: Low Risk Bereavement PDMP/OARRS Reviewed: Yes-reviewed Social history: Marital status: single Children: 4 adult child(rocky) Living status: SNF Work history: unknown Jean status: unknown Bahai nanette: Non-Oriental Orthodox ROS: See palliative care ROS/ESAS below; All other systems were reviewed and are negative. Reynolds Symptom Assessment Score Reynolds Score Pain Score (if non-verbal, add .FLACC below) 3 Tiredness Score 0 Nausea Score 0 Depression Score 0 Anxiety Score 0 Drowsiness Score 0 Anorexia Score (0= eating well, 10= not eating) 10 Wellbeing Score (10= worst sense of well-being) 5 Constipation 0 Dyspnea Score (0= no shortness of breath) 0 Family Meeting: Participants: patient Family meeting was held to discuss:Diagnosis and Prognosis, Goals of Care, Treatment Options, and Symptom Management Objective: BP 129/75 Pulse 98 Temp 36.8 C (98.2 F) (Temporal) Resp 17 Ht 1.778 m (5' 10) Wt 58.9 kg (129 lb 13.6 oz) SpO2 95% BMI 18.63 kg/m Physical Exam Vitals reviewed. HENT: Mouth/Throat: Mouth: Mucous membranes are moist. Eyes: General: No scleral icterus. Extraocular Movements: Extraocular movements intact. Pulmonary: Effort: Pulmonary effort is normal. No respiratory distress. Abdominal: General: Abdomen is flat. Comments: PEG tube in place Skin: Coloration: Skin is not pale. Neurological: Mental Status: He is alert. Comments: Alert and oriented, answering questions appropriately, moving all four extremities Psychiatric: Comments: calm Medication information: 24-hour PRN meds received: reviewed Results/Verification of Data Review Objective data reviewed (must include dates reviewed for labs, imaging reports and other specialty notes): Data in Support of Terminal Illness: Is patient hospice appropriate? TBD Transition Note Initiated: yes Tex Cotto MD ICU Progress Note Name: Jun Snyder : 1965(59 y.o.) Date: 01/25/25 Team: MICU Attending: DARRYN HIGGINS Subjective: Hospital Summary: Jun Snyder is a 59 y.o. male who who presented to [facility] 01/19 after inadvertent removal of his tracheostomy. He was transferred to [facility] ICU for surgical evaluation. On arrival he was maintaining appropriate O2 saturations on room air and the decision was made to leave the tracheostomy out. Able to be transferred out of ICU later that day. On 01/20 critical care and GI were consulted due to rectal bleeding. At that time patient determined to be stable to remain on GMF. On the morning of 01/21, GI recommended ICU transfer for EGD which revealed non-bleeding duodenal ulcer. At that time patient's sacral wound was noted to be bleeding. Have been trending INR's and H&H, currently stable. Received one unit of FFP per ZOË panel, patient still having bloody stools with GI following. Interval Events: Patient was revaluated at bedside during AM rounds. Patient reports feeling better this AM though continues to endorse chest wall and epigastric pain. The patient is producing urine as expected for his hemodialysis requiring status. He denies having BM but is passing flatulence. Scheduled Meds:ampicillin-sulbactam, 3,000 mg, IntraVENous, q12h collagenase, , Topical, Daily ipratropium-albuterol, 3 mL, Nebulization, TID Lidocaine, 1 patch, Topical, Daily [Held by provider] metoprolol tartrate, 25 mg, Per G Tube, BID [Held by provider] midodrine, 15 mg, Per G Tube, q6h Continuous Infusions:heparin, 5-30 Units/kg/hr, Last Rate: 12 Units/kg/hr (01/24/25 1658) sodium chloride, 20 mL/hr, Last Rate: 20 mL/hr (01/23/25 1648) Objective: Last Vitals: BP MAP 124/74 (01/25/25 0429) 85 (01/25/25 0400) Arterial BP MAP Temp 37.1 C (98.7 F) (01/25/25428) Pulse 97 (01/25/25 0413) Resp 16 (01/25/25412) SpO2 97 % (01/25/25412) Weight 58.9 kg (129 lb 13.6 oz) (01/19/25 0657) BMI Body mass index is 18.63 kg/m . I/O: 01/24 700 - 01/25 659 In: 748 [I.V.:673] Out: 1 Ventilator: ETCO2 (mmHg): 17 mmHg Oxygen Delivery: O2 Flow Rate (L/min): 5 L/min Invasive Lines / Tubes / Drains: Peripheral IV 01/19/25 Right Forearm (Active) Number of days: 5 Peripheral IV 01/23/25 Anterior;Distal;Right Forearm (Active) Number of days: 1 Enterostomy Gastric 20 Fr. LUQ (Active) Number of days: 71 Negative Pressure Wound Therapy Sacrum (Active) Number of days: 1 Central Line Indication: NA - patient does not have a central line Payne Indications: NA - patient does not have a Payne catheter Restraints: NA - patient is not restrained. Wounds: Wound/Incision 11/13/24 Pressure Injury Sacrum (Active) Date First Assessed/Time First Assessed: 11/13/24 1200 Present on Original Admission: No Primary Wound Type: Pressure Injury Location: Sacrum Pressure Injury Stage: Stage 3 Wound/Incision 11/15/24 Traumatic Arm Anterior;Left;Upper (Active) Date First Assessed/Time First Assessed: 11/15/24 0800 Primary Wound Type: Traumatic Location: Arm Wound Location Orientation: Anterior;Left;Upper Wound Description (Comments): Fistula Wound/Incision 11/15/24 Other (comment) Toe - third Anterior;Left (Active) Date First Assessed/Time First Assessed: 11/15/24 2213 Present on Original Admission: No Primary Wound Type: (c) Other (comment) Location: (c) Toe - third Wound Location Orientation: Anterior;Left Wound Description (Comments): Black 3rd and 4th ... Wound/Incision 11/19/24 Traumatic Achilles Left (Active) Date First Assessed/Time First Assessed: 11/19/24 1409 Primary Wound Type: Traumatic Location: Achilles Wound Location Orientation: Left Wound/Incision 11/19/24 Traumatic Heel Left (Active) Date First Assessed/Time First Assessed: 11/19/24 1410 Primary Wound Type: Traumatic Location: Heel Wound Location Orientation: Left Wound/Incision 01/19/25 Pressure Injury Head Posterior;Medial (Active) Date First Assessed/Time First Assessed: 01/19/25 0510 Present on Original Admission: Yes Primary Wound Type: Pressure Injury Location: Head Wound Location Orientation: Posterior;Medial Wound Description (Comments): scab, redness periwound Constitutional: General Appearance []WDWN []Obese []Cachectic [x]Thin []Ill Eyes: Inspection of Pupils/Irises Pupils round and react: [x]Yes []No Sclera: []Icteric [x]Non-Icteric Inspection of Conjunctiva/Lids Conjunctiva: []Injected [x]Non-Injected Lids: [x]Intact []Lesion Present ENT/Mouth: External Inspection of ears/nose [x] Normal [] Scar/Lesion/Mass Inspection of teeth/lips/gums Dentition: [x][place] Teeth []Dentures Lips/Gums: [x]Intact []Lesion Present Mucosa: [x]Starke []Moist []Dry Neck: External Appearance Overall Appearance: [x]Normal []Lesion/Mass/Crepitus Present Trachea midline: [x]Yes []No tracheostomy site clean and dry. Thyroid [x]Normal []Enlarged []Tender []Mass []Absent Respiratory: Respiratory effort []Labored [x]Non-Labored [] Mechanically-Ventilated Auscultation [x]Clear []Crackles []Wheezes []Rhonchi Cardiovascular: Auscultation Rate: [x]Regular []Irregular []Tachycardia []Bradycardia Rhythm: [x]Regular []Irregular Murmur: [x]Present []Absent s/p 23mm [place] mechanical- 10/12/24 Extremities Peripheral Edema: []Present [x]Absent Varicosities: []Present [x]Absent Gastrointestinal: Abdomen Palpation: [x]Soft []Firm []Tender [x]Non-Tender []Distended [x]Non-distended Mass: []Present [x]Absent Bowel Sounds: [x]Present []Absent Hernia: []Present [x]Absent Liver/Spleen: [x]Hepatosplenomegaly [x]Organomegaly Absent Musculoskeletal: Inspection of Digits and Nails Cyanosis: []Present [x]Absent Clubbing: []Present [x]Absent Ischemia: []Present [x]Absent Infection: []Present [x]Absent Extremities UGAN Equally: Except ([]RUE []RLE []LUE []LLE) Strength/Tone: Intact and Normal ([x]RUE [x]RLE [x]LUE [x]LLE) Skin: Inspection: Peg tube in place, site CDI with no surrounding erythema. [x]Normal []Rash []Lesion []Ulcer Palpation [x]Warm []Cool []Dry []Clammy []Nodules []Induration []Skin-tightening Cap-Refill: [x] <3 sec [] >3 seconds (delayed) Neurologic: GCS EYE: 4 - Opens spontaneously GCS MOTOR: 6 - Obeys commands for movement GCS VERBAL: 5 - Oriented to person, place, time Total GCS: 15 [x] Sensation grossly intact Psych: Mental Status Alert: [x]Yes [] No Oriented: [x]x0 []X1 []X2 []x3 Mood/Affect [x]Normal []Flat []Agitated []Depressed []Anxious []Calm []Sedated []NAD [facility] within last 24 hours- BMP: Recent Labs 01/23/25 0430 01/24/25 0429 01/24/25 1217 01/25/25 0251 NA 140 139 138 138 K 3.4* 4.0 3.5 3.9 CL 102 98 100 98 CO2 25 21* 26 24 BUN 22 27* 9 15 CREATININE 2.34* 3.62* 1.47* 2.54* CALCIUM 9.4 10.2 9.3 10.1 MG 2.1 2.3 -- 2.1 PHOS 4.5 5.1* -- 3.9 LFTs:No results for input(s): AST, ALT, PROT, ALBUMIN, BILITOT, BILIRUBINU, ALKPHOS, LIPASE in the last 72 hours. Glucose: Recent Labs 01/22/25 0554 01/22/25 1318 01/22/25 2357 01/23/25 0430 01/23/25 0626 01/23/25 2317 01/24/25 0429 01/24/25 1217 01/25/25 0251 GLUCOSE -- -- -- 80 -- -- 74 77 74 POCGLU 81 77 101* -- 92 113* -- -- -- BHYDRXBUT -- -- -- -- -- -- 10.5* -- -- Procal: No results for input(s): PROCAL in the last 72 hours. CBC: Recent Labs 01/23/25 1514 01/24/25 0610 01/24/25 1217 01/24/25 2348 01/25/25 0251 WBC 10.9* 11.5* -- -- 10.2 HGB 7.9* 7.9* 8.0* 7.3* 6.3* 7.0* HCT 25.3* 25.1* 27.0* 23.0* 20.4* 22.5* PLT 346 355 -- -- 285 MCV 89.4 94.1 -- -- 88.6 RDW 18.8* 19.4* -- -- 19.2* ABGs: No results for input(s): PHART, WYA1FIL, PO2ART, USY7XAB, SO2ART, Z2TMEJGT in the last 72 hours. Lactic Acid: Recent Labs 01/24/25 0830 LACTATE 0.9 INR: Recent Labs 01/24/25 0429 01/24/25121601/24/25 2348 INR 1.5* 1.5* 1.5* Cardiac Injury Profile: No results for input(s): CKTOTAL, CKMB, TROPONINI in the last 72 hours. Labs in Last 3 months: Lab Results Component Value Date TSH 1.190 08/17/2023 INR 1.5 (H) 01/24/2025 Microbiology- Urine Cx: No results found for: URINECX Blood Cx: Lab Results Component Value Date BLOODCX No growth at 5 days 01/01/2025 Sputum Cx: Lab Results Component Value Date RESPCULT Rare respiratory ila present. 12/30/2024 RESPCULT Many Staphylococcus aureus (A) 12/30/2024 Gram Stain: Lab Results Component Value Date LABGRAM (A) 01/02/2025 Many Polymorphonuclear leukocytes per low power field LABGRAM Many Gram positive cocci (A) 01/02/2025 LABGRAM Moderate Gram positive bacilli (A) 01/02/2025 PNA PCR: Lab Results Component Value Date HUMANMETAPNE Not Detected 11/15/2024 COVID19: No results found for: COVID19 Legionella Ag: Lab Results Component Value Date LEGIONELLAPN Not Detected 11/14/2024 Imaging- no significant change from prior studies XR chest 1 view Final Result 1. Median sternotomy and valve repair. 2. Infiltrate in the lingula of the left upper lobe. 3. Prominence of the central pulmonary vasculature consistent with mild congestive heart failure/fluid overload. 4. The aeration of the lungs has improved mildly when compared to the previous study. Report Dictated on Electronically Signed By: Delon Torres MD Electronically Signed Date/Time: 01/24/2025 1:59 AM EDT CTA abdomen pelvis angiogram w and/or wo IV contrast Final Result 1. Imaging does not identify the site and/or source of the GI bleed. There is no intraluminal IV contrast appreciated. There are multiple loops of fluid-filled small and large bowel. The rectum is mildly distended with intraluminal fluid, consider diarrhea. 2. There is a large posterior decubitus ulcer which extends to the sacrum and coccyx with locules of air, fluid, and edema, correlate with clinical physical exam. This is new compared to 11/16/2024. 3. Colonic diverticulosis. 4. Renal atrophy. This patient has end-stage renal disease and is receiving dialysis. 5. Cholelithiasis. The gallbladder is decompressed with wall thickening measuring 6-7 mm (differential includes poor distention, systemic process, cholecystitis). Consider nuclear medicine HIDA scan and/or ultrasound. 6. Bilateral small pleural effusions with compressive atelectasis and/or infiltrate. Cardiomegaly. 7. Other: IVC filter. Percutaneous gastrostomy tube. Additional findings, as above. Report Dictated on Electronically Signed By: Karly Parker MD Electronically Signed Date/Time: 01/20/2025 7:02 PM EDT XR chest 1 view Final Result 1. Lingular infiltrate. 2. Prominence of the central pulmonary vasculature consistent with mild congestive heart failure/fluid overload. 3. Overall significant improvement in the aeration of the lungs when compared to the previous study. Report Dictated on Electronically Signed By: Delon Torres MD Electronically Signed Date/Time: 01/19/2025 6:16 AM EDT [place] modified barium with video and speech (Results Pending) Assessment and Plan: Principal Problem: Complication of tracheostomy (CMS/HCC) ([facility]) Active Problems: Severe malnutrition (CMS/HCC) ([facility]) BRBPR (bright red blood per rectum) GIB with unclear source, Non-bleeding duodenal ulcer Dysphagia Hgb: 7 > 7.0 (BL 9.1) s/p FFP on 01/22 x 1U & pRBC 1U 01/24 2U, 5/1.2 U pRBC, EGD/Colonoscopy 01/23 with no endoscopic evidence of bleeding or inflammation in the entire colon. Evidence of divirticular diseae and internal hemorrhoids. INR imrpoved. Required total: Modified Barium Swallow - GI following - continue to hold warfarin in setting of GIB, INR currently 1.5 - Resume Heparin - SAILAJA following, monitor for s/s of bleeding - Continue to trend H/H, - Transfusion threshold Hb <7 - vWF panel, factor 8 ristocetin assay, and peripheral blood smear pending - Diet per E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 recs - continue q12 H/H and PT/INR Appreciate Recs: Pureed solids and Thin liquids and meds crushed in puree and the following precautions: - Upright positioning for all PO intake - Small bites/sips - Frequent re-swallows to clear oral cavity - Pt/Ot Acute on chronic anemia In the setting of ESRD on HD and blood loss anemia - continue q12 H/H and PT/INR as above Sacral Wound Stage V with Osteomyelitis Left toes 1-4: Arterial Ulcer (Unknown) S/p debridement of old blood clots, no active bleeding noted - ID following - Cx with E. Faecalis and clostridium - Continue Unasyn 3000 mg IV (renally dosed) for 6 weeks 01/19 -03/02 - Gen surgery following - wet - dry dressing and wound VAC per gen surg recommendation - change 3x/wk and PRN - no further surgical intervention at this time - Wound care following - cleanse with NS, apply Betadine and allow to dry, leave [employer]ATE FINANCIAL ANALYST daily and PRN - PVRs for circulation check - rec wound vac for sacral wound, change 3x/wk and PRN Hx CAD s/p CABG Severe Aortic stenosis s/p proesthetic mechanical valve S/p 23mm [place] Luis mechanical valve replacement on 10/12. TTE 11/24 without mechanical valve regurgitation or stenosis - Continue heparin - Warfarin 0.5 mg once daily, pharmacy to dose ESRD (on HD MWF) HAGMA - improving Hypotension, chronic HAGMA likely secondary to ESRD, patient due for dialysis today - Management per nephro - hold midodrine 15mg q6h - continue to trend BMP - Anion gap 20, BHB 10.5 - Lactic acid WNL Concern for aspiration Chronic hypoxemic respiratory failure Leukocytosis - CXR 01/24 with improved aeration, slightly worsening congestion - Will continue to trend CBC, monitor respiratory status - s/p tracheostomy, now removed - saturating appropriately on 2L NC - continue duo-neb TID Paroxysmal A-fib INR 1.5>1.7 - warfarin held in setting of supra-therapeutic INR (goal INR 2-3) - Metoprolol held d/t concern for bleed GI Prophylaxis: Pantoprazole IV DVT Prophylaxis: SCDs warfarin held Disposition: Transfer to [facility] Cosigned by Darryn Higgins MD at 01/25/2025 3:10 PM EDT Associated attestation - Darryn Higgins MD - 01/25/2025 3:10 PM EDT I have personally seen the patient and examined along with the resident. I personally obtained the francis and relevent portions of the history and performed physical exam. I reviewed the chart including MAR, labs, and radiology and agree with the patient's plan of action as discussed with the resident. This note reflects my plan of care as I have edited the note to reflect my findings and my assessment and plan. ROS documentation was reviewed and negative unless otherwise stated in HPI. Chief Complaint: GIB Additional pertinent interval history, ROS, and physical exam findings: Patient seen and examined. Awake, alert, following commands. No acute complaints. Hemoglobin with slight down trend however remains hemodynamically stable. Received 1 unit PRBC with appropriate improvement in hemoglobin. Non-labored breathing. Assessment and Plan: GIB unclear etiology w/ bleeding worsened by Coumadin - Internal hemorrhoids Stage V Sacral Wound POA Supratherapeutic INR on Coumadin Acute on Chronic Anemia w/ blood loss anemia Aortic Valve Stenosis status post aortic valve replacement on coumadin Chronic Respiratory Failure with Hypoxia s/p Trach - now removed ESRD on HD Chronic Hypotension Afib on Coumadin Necrotic L toes - GI colonoscopy w/ evidence of diverticulosis and internal hemorrhoids. - restarted heparin gtt with transition to coumadin w/ [facility] clinic. Monitoring for further bleeding. - Hemoglobin thus far stable, extend H/H to q 12 hours. Transfuse for Hgb <7. Type and screen if not completed. PT/INR/Zoë as needed. - wound care following for sacral wound - surgery recommending wound vac - breathing stable status post tracheostomy removal. - continue Unasyn for sacral wound x 6 weeks - ID following. - modified barium swallow with speech today - PT/OT - recheck hemoglobin stable today. Patient awake and appropriate. If stable can transfer to [facility]. Code Status: Full Code Disposition: Transfer to [facility] Time spent preparing to see the patient, obtaining/reviewing separately obtained history, completing an appropriate medical examination of the patient, ordering medications/tests/procedures, documenting clinical information on the EMR, and/or coordinating care is a subsequent visit: 35 minutes (Level II). Darryn Higgins MD Pulmonary and Critical Care Medicine Attending Pager #[phone] Images from the original note were not included. [facility] - Infectious Diseases Advanced Practice Provider Progress Note Subjective: Following patient for sacral OM. Notes reviewed. Patient had colonoscopy today revealing sigmoid colon diverticulosis and internal hemorrhoids; no evidence of bleeding. Patient reports having pain in sacrum. Reports intermittent cough and SOB. Reports tolerating antibiotics well without issues. No other new exacerbating or alleviating factors. Objective: Vitals: Patient Vitals for the past 24 hrs: BP Temp Temp src Pulse Resp SpO2 Height 01/24/25 1321 -- -- -- -- -- -- 1.778 m (5' 10) 01/24/25 1311 107/57 -- -- 98 19 100 % -- 01/24/25 1309 -- -- -- 97 18 100 % -- 01/24/25 1309 102/58 -- -- 99 23 100 % -- 01/24/25 1309 109/59 -- -- 96 16 100 % -- 01/24/25 1309 107/57 -- -- -- -- -- -- 01/24/25 1307 109/59 -- -- 95 17 100 % -- 01/24/25 1306 109/59 -- -- -- -- -- -- 01/24/25 1305 100/55 -- -- 93 15 100 % -- 01/24/25 1304 -- -- -- 93 15 100 % -- 01/24/25 1303 107/57 -- -- 93 14 100 % -- 01/24/25 1300 107/57 -- -- 93 (!) 33 100 % -- 01/24/25 1300 107/57 -- -- -- -- -- -- 01/24/25 1259 -- -- -- 95 24 100 % -- 01/24/25 1258 117/64 -- -- 92 (!) 91 100 % -- 01/24/25 1256 113/64 -- -- 87 (!) 41 100 % -- 01/24/25 1254 -- -- -- 89 18 100 % -- 01/24/25 1254 113/64 -- -- -- -- -- -- 01/24/25 1251 104/57 -- -- -- -- -- -- 01/24/25 1249 -- -- -- 94 18 100 % -- 01/24/25 1228 -- -- -- 88 16 100 % -- 01/24/25 1220 127/72 36.6 C (97.8 F) -- 87 (!) 28 100 % -- 01/24/25 1215 118/67 -- -- 87 16 100 % -- 01/24/25 1200 119/65 -- -- 80 (!) 11 100 % -- 01/24/25 1145 120/76 -- -- 91 19 100 % -- 01/24/25 1130 116/68 -- -- 82 (!) 10 100 % -- 01/24/25 1115 124/67 -- -- 80 12 100 % -- 01/24/25 1100 116/71 -- -- 91 22 100 % -- 01/24/25 1045 121/67 -- -- 95 23 99 % -- 01/24/25 1030 111/76 -- -- 96 (!) 27 100 % -- 01/24/25 1016 111/59 -- -- 86 12 96 % -- 01/24/25 1015 (!) 93/48 -- -- 85 12 97 % -- 01/24/25 1000 121/67 -- -- 89 25 97 % -- 01/24/25 0947 114/66 -- -- 84 (!) 32 99 % -- 01/24/25 0930 119/65 -- -- 100 (!) 27 100 % -- 01/24/25 0923 122/63 36.7 C (98.1 F) -- 103 (!) 28 98 % -- 01/24/25 0900 -- -- -- 100 16 96 % -- 01/24/25 0800 138/81 -- -- 82 17 100 % -- 01/24/25 0700 129/73 -- -- 85 (!) 11 94 % -- 01/24/25 0600 123/71 -- -- 83 18 99 % -- 01/24/25 0500 123/77 -- -- 86 15 94 % -- 01/24/25 0400 126/78 36.8 C (98.2 F) Temporal 92 16 96 % -- 01/24/25 0300 106/75 -- -- 86 19 99 % -- 01/24/25 0200 114/72 -- -- 95 (!) 31 96 % -- 01/24/25 0100 133/75 -- -- 81 (!) 11 97 % -- 01/24/25 0000 144/78 36.6 C (97.8 F) Temporal 80 (!) 10 98 % -- 01/23/25 2300 134/79 -- -- 84 17 100 % -- 01/23/25 2200 124/84 -- -- 87 25 100 % -- 01/23/25 2100 125/61 -- -- 85 15 95 % -- 01/23/25 2000 132/77 36.4 C (97.6 F) Temporal 87 14 97 % -- 01/23/25 1900 126/79 -- -- 87 18 100 % -- 01/23/25 1700 123/86 -- -- 90 16 95 % -- 01/23/25 1600 114/72 36.7 C (98 F) Temporal 96 16 96 % -- Physical Exam: Physical Exam Vitals and nursing note reviewed. Constitutional: General: He is not in acute distress. Appearance: Normal appearance. He is normal weight. He is not ill-appearing. Comments: NAD laying in bed. Cooperative, responds appropriately. Ill-appearing HENT: Head: Normocephalic and atraumatic. Right Ear: External ear normal. Left Ear: External ear normal. Nose: Nose normal. Mouth/Throat: Mouth: Mucous membranes are moist. Pharynx: Oropharynx is clear. Eyes: Extraocular Movements: Extraocular movements intact. Conjunctiva/sclera: Conjunctivae normal. Pupils: Pupils are equal, round, and reactive to light. Neck: Comments: Recent tracheostomy site healing Cardiovascular: Rate and Rhythm: Normal rate and regular rhythm. Pulses: Normal pulses. Heart sounds: Normal heart sounds. Pulmonary: Effort: Pulmonary effort is normal. Breath sounds: Normal breath sounds. No wheezing, rhonchi or rales. Comments: Breathing unlabored on room air. No wheezes, rales, rhonchi Abdominal: General: Abdomen is flat. Bowel sounds are normal. There is no distension. Palpations: Abdomen is soft. Tenderness: There is no abdominal tenderness. There is no guarding. Musculoskeletal: Right lower leg: No edema. Left lower leg: No edema. Skin: General: Skin is warm and dry. Comments: Sacral wound images reviewed. Wound vac in place with serosanguinous drainage in cannister L toes 1-4 with dry gangrene LUE AVF Neurological: General: No focal deficit present. Mental Status: He is alert and oriented to person, place, and time. Psychiatric: Mood and Affect: Mood normal. Behavior: Behavior normal. Labs: Recent Labs 01/22/25 0419 01/23/25 0430 01/24/25 0429 01/24/25 1217 NA 132* 140 139 138 K 4.4 3.4* 4.0 3.5 CL 94* 102 98 100 CO2 25 25 21* 26 BUN 53* 22 27* 9 CREATININE 4.18* 2.34* 3.62* 1.47* GLUCOSE 70* 80 74 77 CALCIUM 9.8 9.4 10.2 9.3 PROT 7.6 -- -- -- BILITOT 0.9 -- -- -- ALKPHOS 274* -- -- -- AST 51* -- -- -- ALT 44* -- -- -- Recent Labs 01/22/25 1539 01/23/25 0430 01/23/25 1514 01/24/25 0610 01/24/25 1217 WBC 10.6 11.1* 10.9* 11.5* -- HGB 7.4* 7.3* 7.9* 7.9* 8.0* 7.3* HCT 23.9* 23.4* 25.3* 25.1* 27.0* 23.0* PLT 292 345 346 355 -- LYMPHOPCT 9.7* 12.2* 13.7* -- -- MONOPCT 14.5* 12.9 13.7* -- -- BASOPCT 0.8 1.1 1.0 -- -- NEUTROABS 7.2 7.2 7.0 -- -- Micro: 01/22 C auris screen: in process 01/22 A baumannii screen: in process Previous ([facility]) 01/02- sacral wound cx- E faecalis (Amp-S), skin ila, Clostridium clostrioforme 01/01- blood cx- 2/2 NG 12/30- blood cx- 2/2 NGTD 12/30- sputum cx- MSSA, resp ila 12/25- blood cx- 2/2 negative 12/14- sputum cx- MSSA, resp ila 12/14- MRSA pcr- MSSA 12/11- sputum cx- MSSA, resp ila Previous ([facility]) 11/28- L pleural fluid- negative 11/16- abd fluid eswab- ASE faecalis 11/16- peritoneal cx- C glabrata 11/15- RPP- negative 11/15- sputum cx- resp ila 11/14- BAL pneumonia PCR- negative 11/14- BAL cx- resp ila 11/12- C diff PCR- negative 11/12- GI PCR- negative 11/02- MRSA PCR- MSSA 11/02- RPP- negative 11/01- pneumonia PCR- MSSA, RSV 11/01- BAL cx- MSSA, resp ila 11/01- blood cx- 10/29 negative 10/25- H pylori ag- negative 10/19- BAL cx- resp ila 10/19- BAL pneumonia PCR- coronavirus, RSV 10/16- BAL cx- resp ila 10/11- GI PCR- negative 10/03- blood cx- 2/2 negative 10/03- 4plex- RSV Lines: AVF PIV Radiography/Echo/Other: 01/19 CXR 1. Lingular infiltrate. 2. Prominence of the central pulmonary vasculature consistent with mild congestive heart failure/fluid overload. 3. Overall significant improvement in the aeration of the lungs when compared to the previous study. 01/20 CTA Abd/Pelvis 1. Imaging does not identify the site and/or source of the GI bleed. There is no intraluminal IV contrast appreciated. There are multiple loops of fluid-filled small and large bowel. The rectum is mildly distended with intraluminal fluid, consider diarrhea. 2. There is a large posterior decubitus ulcer which extends to the sacrum and coccyx with locules of air, fluid, and edema, correlate with clinical physical exam. This is new compared to 11/16/2024. 3. Colonic diverticulosis. 4. Renal atrophy. This patient has end-stage renal disease and is receiving dialysis. 5. Cholelithiasis. The gallbladder is decompressed with wall thickening measuring 6-7 mm (differential includes poor distention, systemic process, cholecystitis). Consider nuclear medicine HIDA scan and/or ultrasound. 6. Bilateral small pleural effusions with compressive atelectasis and/or infiltrate. Cardiomegaly. 7. Other: IVC filter. Percutaneous gastrostomy tube. Additional findings, as above. 01/24 CXR 1. Median sternotomy and valve repair. 2. Infiltrate in the lingula of the left upper lobe. 3. Prominence of the central pulmonary vasculature consistent with mild congestive heart failure/fluid overload. 4. The aeration of the lungs has improved mildly when compared to the previous study. Antimicrobials, Start/End Dates: Anidulafungin: 11/27-11/28 Micafungin: 11/28- 12/10 Linezolid: 12/30-12/31 Pip/tazo: 12/30-01/01 Vancomycin: 12/31- 01/03 Meropenem: 01/01-01/04 Amp-Sulbactam: 01/06- present Impression: Sacral wound infection w osteomyelitis bedside debridement w/ exposed bone (01/02) sacral wound cx: ASEC, Clostridium Cx now with large clots Tracheostomy dislodgement BRBPR EGD with non-bleeding duodenal ulcer. S/p colonoscopy 01/24- sigmoid diverticulosis & internal hemorrhoids; no active bleeding. Leukocytosis- resolved Recurrent MSSA LRTI- treated Acute hypoxic respiratory failure s/p trach C glabrata, ASEC peritonitis s/p treatment Pneumoperitoneum s/p ex-lap, EGD, & abhishek gastrostomy tube placement (11/16/24) Hx GIB s/p GDA embolization (10/14/24) PEA arrest x2 (10/14/24, 11/01/24) Severe aortic stenosis s/p AVR (23mm [facility] Luis mechanical- 10/12/24) LLE DVT's c/b ishemic L foot s/p IVC filter ESRD on HD via LUE AVF MWF Afib on amiodarone Plan: Following patient for sacral osteomyelitis. Sacral wound s/p debridement to bone 01/02 (Cx with E faecalis and Clostridium) Continue renally-dosed Amp-Sulbactam through 02/13/25 to complete 6 week course. OPAT complete and under media tab. Monitor infectious parameters. Continue wound care. ID will continue to follow. ID colleague to assume coverage tomorrow. Based on diagnoses and management, combination of acute and chronic problems, exacerbations and/or acuity, this visit should be considered to be of moderate complexity. Mikala MORAN PA-C [facility] Progress Note Mr. Jun Snyder is a 59-year-old male with a history of end-stage renal disease (ESRD) on a Wednesday/Wednesday/Wednesday hemodialysis (HD) schedule. His ESRD has been complicated by chronic hypotension, for which he is maintained on midodrine 15 mg every 6 hours. He remains on intermittent HD with nephrology following, and no acute dialysis-related complications have been noted during this hospitalization. His chronic renal failure was confirmed on prior imaging showing renal atrophy. Management continues with a focus on volume support, monitoring of electrolytes, and hemodynamic stability, with adjustments made as needed based on his clinical course.Seen on HD. BP 107/57 Pulse 98 Temp 36.6 C (97.8 F) Resp 19 Ht 1.778 m (5' 10) Wt 58.9 kg (129 lb 13.6 oz) SpO2 100% BMI 18.63 kg/m Input / Output: 24 HR: Intake/Output Summary (Last 24 hours) at 01/24/2025 1517 Last data filed at 01/24/2025 1220 Gross per 24 hour Intake 4928 ml Output 1 ml Net 4927 ml Physical Exam Alert and oriented x 1 NAD Neck: no JVD CV: RRR Lungs: CTA bilaterally Abd: soft, NT, ND Ext: no lower extremity edema Scheduled medications ampicillin-sulbactam, 3,000 mg, IntraVENous, q12h collagenase, , Topical, Daily ipratropium-albuterol, 3 mL, Nebulization, TID Lidocaine, 1 patch, Topical, Daily [Held by provider] metoprolol tartrate, 25 mg, Per G Tube, BID [Held by provider] midodrine, 15 mg, Per G Tube, q6h Phenylephrine HCl (Pressors), , , Propofol, , , Propofol, , , warfarin, 1 mg, Oral, Once Continuous medications heparin, 5-30 Units/kg/hr sodium chloride, 20 mL/hr, Last Rate: 20 mL/hr (01/23/25 1648) PRN medications PRN medications: acetaminophen, collagenase, dextrose, dextrose, glucagon (rDNA), glucose, melatonin, naloxone, oxyCODONE OR oxyCODONE, Phenylephrine HCl (Pressors), prochlorperazine, Propofol, Propofol, sodium chloride, sodium chloride Results from last 7 days Lab Units 01/24/25 1217 04/42901/22/259 SODIUM mmol/L 138 < > 132* POTASSIUM mmol/L 3.5 < > 4.4 CHLORIDE mmol/L 100 < > 94* CO2 mmol/L 26 < > 25 BUN mg/dL 9 < > 53* CREATININE mg/dL 1.47* < > 4.18* CALCIUM mg/dL 9.3 < > 9.8 PROTEIN TOTAL g/dL -- -- 7.6 BILIRUBIN TOTAL mg/dL -- -- 0.9 ALK PHOS U/L -- -- 274* ALT U/L -- -- 44* AST U/L -- -- 51* GLUCOSE mg/dL 77 < > 70* < > = values in this interval not displayed. Results from last 7 days Lab Units 01/24/25 0429 01/23/2542901/22/25418 MAGNESIUM mg/dL 2.3 2.1 2.6 Results from last 7 days Lab Units 01/24/25 1217 01/24/25 0610 01/23/25 1514 01/23/250 WBC AUTO 10*3/uL -- 11.5* 10.9* 11.1* HEMOGLOBIN g/dL 7.3* 8.0* 7.9* 7.9* 7.3* HEMATOCRIT % 23.0* 27.0* 25.3* 25.1* 23.4* PLATELETS 10*3/uL -- 355 346 345 Assessment & Plan: Problem: End-Stage Renal Disease (ESRD) on Hemodialysis Assessment: Patient with known ESRD on a Wednesday/Wednesday/Wednesday (MWF) hemodialysis schedule. Hemodialysis completed today without complications. Labs show ongoing elevated BUN 27 mg/dL and creatinine 3.62 mg/dL, consistent with ESRD. Electrolytes post-HD are relatively stable: sodium 139 mmol/L, potassium 4.0 mmol/L, chloride 94 mmol/L, CO? 25 mmol/L. Chronic hypotension remains a concern; patient is maintained on midodrine 15 mg every 6 hours. No signs of volume overload or uremic symptoms (e.g., encephalopathy, pericarditis) at this time. Output monitoring ongoing -- no Payne catheter, tracking via clinical assessment. Weight today: 58.9 kg (previous documented weight stable). Plan adjusted considering ongoing bleeding risks (rectal bleeding history, held anticoagulation). Plan: Continue hemodialysis MWF schedule. Maintain midodrine 15 mg every 6 hours for blood pressure support. Monitor daily weights, intake/output (I/Os), and clinical volume status. Continue to monitor BUN/Creatinine and electrolyte panel post-HD sessions. No anticoagulation restarted at this time due to recent GI bleeding and supratherapeutic INR. Ensure appropriate vascular access site care. Nephrology to continue routine management and reassess HD prescription as needed based on volume status and labs. Please message me through [employer] chat with any questions or concerns. Wellington Nicole MD 01/24/2025 3:17 PM [facility] [address] [place] [address], [address] [place] [address] Office: [phone] Nutrition Assessment Type and Reason for Visit: Reassess Nutrition Recommendations/Plan: Pt remains NPO at this time due to colonoscopy today. Pt was previously ordered and tolerating Nepro with CHO Steady @ 50mls/hr which would be appropriate to resume when EN able to be initiated. Nepro with CHO Steady @ goal rate of 50mls/hr will provide 2124kcals, 97gm protein, 872mL free fluid (~36kcals/kg, 1.6gm/kg ABW <58.9kg> vs 28kcals/kg, 1.3gm/kg IBW). This was the regimen pt was receiving and tolerating while at [facility] Noted E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 is following- trach remains out and pt stable without it. E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 most recently recommended MBSS completion- will follow and monitor E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 recs and need for adjustment in EN regimen if PO diet is able to be initiated. Will continue to monitor weight changes, labs and overall nutrition status RD will continue to follow up weekly Malnutrition Assessment: Malnutrition Status: Severe malnutrition (per RD assessment 01/19, no noted MD documentation at this time) Context: Chronic Illness Nutrition Assessment: pt with previously reviewed PMH who remains admitted to the ICU after he initially presented to [facility] ED on 01/19/25 due to inadvertent removal of his tracheostomy, pt was transferred to [facility] ICU for surgical evaluation, on arrival he was maintaining appropriate O2 saturations on room air and the decision was made to leave the tracheostomy out, pt was able to be transferred out of ICU later that day however on 01/20 ICU and GI were consulted due to rectal bleeding, at that time pt determined to be stable to remain on GMF however on the morning of 01/21 GI recommended ICU transfer for EGD which revealed non-bleeding duodenal ulcer, at that time pt sacral wound was noted to be bleeding, ICU has been trending INR's and H&H- currently stable- pt received one unit of FFP per ZOË panel, pt still having bloody stools, GI following due to GIB- CTA was negative for active bleeding on 01/20, EGD completed 01/21 with non bleeding ulcer, yesterday GI noted given continued BRBPR tentative plan for colonoscopy tomorrow, colonoscopy being completed at time of assessment this afternoon- later noted showed preparation of the colon was fair, diverticulosis in the sigmoid colon, internal hemorrhoids, no specimens collected and GI now following peripherally, ID remains following for sacral osteomyelitis- sacral wound s/p debridement to bone on 01/02 (Cx with E faecalis and Clostridium)- wound care following and wound vac applied yesterday- plans to continue renally-dosed Amp-Sulbactam through 02/13/25 to complete 6 week course, Nephrology remains following 10/29 ESRD- continuing M/W/F schedule at this time, pt had HD today with 1000mL removed, Surgery was consulted for evaluation of bleeding sacral wound- saigned off yesterday with recs for no acute surgical intervention and to continue wound care/vac, wound care remains following due to sacrum stage 4 with vac management and also left toes 1-4 arterial ulcers, E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 remains following- yesterday noted recs to continue PEG TF, ok for ice chips sparingly and recs to order MBSS (order not yet placed). As noted above at time of assessment colonoscopy being completed, in terms of nutrition throughout admit pt NPO 01/19, Nepro @ 50mls/hr initiated 01/20 which ran until pt was made NPO for colonoscopy prep 01/23, no noted EN intolerance issues, no updated weight has been obtained during admit, pt was 129# bedscale on 01/[address], pt was identified to meet severe malnutrition criteria per RD initial assessment- at this time no noted MD documentation, will monitor tolerance of nutrition as able to be re-initiated as well as E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 recs for possible diet advancement s/p MBSS. Nutrition Related Findings: Orientation Level: Oriented X4, Cognition: Follows commands, Appropriate judgement, Appropriate safety awareness, Best Verbal Response: Oriented, Patient Behaviors/Mood: Impulsive Teeth: Missing teeth Swallow: Able to swallow solids and liquids without difficulty Kee Scale Score: 11. Wound Type: (wound care remains following due to sacrum stage 4 with vac management and also left toes 1-4 arterial ulcers) Net IO Since Admission: 5,979 mL [01/24/25 1408] Gastrointestinal (WDL): Exceptions to WDL Bowel Sounds (All Quadrants): Active Abdomen Inspection: Soft, Nondistended Last BM Date: 01/22/25, Stool Appearance: Watery, Stool Color: Green Edema: Generalized Edema: Other (Comment) (none), RUE Edema: None, LUE Edema: None, RLE Edema: None, LLE Edema: None Oxygen Therapy: None (Room air) Labs and meds reviewed: Scheduled: ampicillin-sulbactam, 3,000 mg, IntraVENous, q12h collagenase, , Topical, Daily ipratropium-albuterol, 3 mL, Nebulization, TID Lidocaine, 1 patch, Topical, Daily [Held by provider] metoprolol tartrate, 25 mg, Per G Tube, BID [Held by provider] midodrine, 15 mg, Per G Tube, q6h Phenylephrine HCl (Pressors), , , Propofol, , , Propofol, , , Continuous: heparin, 5-30 Units/kg/hr sodium chloride, 20 mL/hr, Last Rate: 20 mL/hr (01/23/25 1648) Current Nutrition Therapies: NPO diet with enteral medications Current Oral Intake Average Meal Intake: NPO Average Supplements Intake: NPO Anthropometric Measures: Height: 177.8 cm (5' 10) Current Body Weight: (no new weight to assess) Weight Source: Bed Scale Admission Body Weight: 58.5 kg (129 lb) (bedscale obtained 01/[address], no admit weight was obtained) Usual Body Weight: (per EPIC review --> 10/08/23: 207#, 11/12: 208#, 08/28: 206#, 10/04/24: 192#, 10/15: 207# bedscale, 10/31: 200#, 11/28: 161#, 01/18: 142#) [place] Body Weight (lbs) (Calculated): 166 lbs [place] Body Weight (Kg) (Calculated): 75 kg % [place] Body Weight (Calculated): 78.2 % BMI (kg/m2) (Calculated): 18.6 Weight Adjustment For: No Adjustment BMI Categories: Normal Weight (BMI 18.5-24.9) Nutrition Interventions: Nutrition Education/Counseling: No recommendation at this time Coordination of Nutrition Care: Continue to monitor while inpatient Goals: Previous Goal Met: Progress towards Goal(s) Declining Goals: Initiate nutrition support, within 2 days Nutrition Monitoring and Evaluation: Behavioral-Environmental Outcomes: None Identified Food/Nutrient Intake Outcomes: Enteral Nutrition Intake/Tolerance Physical Signs/Symptoms Outcomes: Biochemical Data, Chewing or Swallowing, GI Status, Fluid Status or Edema, Hemodynamic Status, Weight, Skin, Nutrition Focused Physical Findings Discharge Planning: Too soon to determine Dana El RD Contact: available via Interactive TKO or *[phone] [facility] Anticoagulation Management Service (SAILAJA) Inpatient Warfarin Consult HPI: Jun Snyder is a 59 y.o. male admitted on 01/19/2025 for Complication of tracheostomy ([facility] ([facility]) [J95.00] Past Medical History: Diagnosis Date Acute renal failure (ARF) ([facility]) 10/19/2019 Anemia 12/30/2021 Calcification of abdominal aorta ([facility]) 10/08/202309/[address] abd Diverticulosis 10/08/2023 ESRD on hemodialysis ([facility]) ([facility]) 10/26/2019 Hemodialysis patient ([facility]) ([facility]) HTN (hypertension) 12/01/2022 Hypertension IgA nephropathy 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 10/26/2019 Missed vaccination due to patient refusal 10/08/2023 Has a number of non-scientific based beliefs which interfere with his understanding and acceptance of the medical benefit of vaccination. Nonrheumatic aortic valve stenosis 10/08/2023 Paroxysmal A-fib ([facility]) ([facility]) 08/18/2023 Tobacco abuse 10/08/2023 Patient is on warfarin for Afib, mechanical AVR and has a goal INR 2.0 - 3.0. Warfarin is currently managed by facility, has yet to be seen by [facility]. Pt's home dose of warfarin is not yet established, managed by facility. S/sx of bleeding= concern for GIB, anemia, bloody BM overnight Interacting medications= Unasyn Labs: Recent Labs 01/23/25 0430 01/23/25 1514 01/24/25 0610 HGB 7.3* 7.9* 7.9* 8.0* HCT 23.4* 25.3* 25.1* 27.0* PLT 345 346 355 Recent Labs 01/24/25 0429 INR 1.5* Date INR Dose 01/24 1.5 1mg 01/23 2.0 HOLD 01/22 8.1/3.1 HOLD vitamin K 2.5mg PO 01/21 7.9 Held 01/20 --- Held 01/19 2.7 HOLD Assessment/Plan: 1. INR is subtherapeutic due to held doses and vitamin K. Discussed with Dr. Bautista, critical care team OK with resuming warfarin tonight. Will start with low dose - warfarin 1mg tonight, considering recent bleeding concerns and supratherapeutic INR earlier in admission. 2. Monitor for s/s of bleeding and drug interactions. Will adjust dose accordingly 3. Will facilitate f/u at [facility] upon discharge Fatuma Odonnell RPh, PharmD [facility] is available daily [phone] via [employer]. If no response on [employer] Chat then please page [phone]. ICU Progress Note Name: Jun Snyder : 1965(59 y.o.) Date: 01/24/25 Team: MICU Attending: Dr. Higgins Subjective: Hospital Summary: Mr Snyder is a 59 year old male who presented to [facility] 01/19 after inadvertent removal of his tracheostomy. He was transferred to [facility] ICU for surgical evaluation. On arrival he was maintaining appropriate O2 saturations on room air and the decision was made to leave the tracheostomy out. Able to be transferred out of ICU later that day. On 01/20 critical care and GI were consulted due to rectal bleeding. At that time patient determined to be stable to remain on GMF. On the morning of 01/21, GI recommended ICU transfer for EGD which revealed non-bleeding duodenal ulcer. At that time patient's sacral wound was noted to be bleeding. Have been trending INR's and H&H, currently stable. Received one unit of FFP per ZOË panel, patient still having bloody stools with GI following. Interval Events: - ON: patient was receiving bowel prep through PEG, started vomiting with tachypnea. Night team got a CXR which showed improved aeration from prior. RR eventually returned to normal. - This morning, patient is having intermittent tachypnea, on room air. Complaining of chest tightness worse on R>L. Still complaining of LUQ and LLQ abdominal pain. Scheduled Meds:ampicillin-sulbactam, 3,000 mg, IntraVENous, q12h collagenase, , Topical, Daily ipratropium-albuterol, 3 mL, Nebulization, TID Lidocaine, 1 patch, Topical, Daily [Held by provider] metoprolol tartrate, 25 mg, Per G Tube, BID midodrine, 15 mg, Per G Tube, q6h mupirocin, 1 Application, Nasal, BID Continuous Infusions:sodium chloride, 20 mL/hr, Last Rate: 20 mL/hr (01/23/25 1648) Objective: Last Vitals: BP MAP 144/78 (01/24/25 0000) 98 (01/24/25) Arterial BP MAP Temp 36.4 C (97.6 F) (01/23/251999) Pulse 80 (01/24/25) Resp (!) 10 (01/24/25) SpO2 98 % (01/24/25) Weight 58.9 kg (129 lb 13.6 oz) (01/19/25 0657) BMI Body mass index is 18.63 kg/m . I/O: 01/23 0700 - 01/24 659 In: 4496 [I.V.:410] Out: - Ventilator: Oxygen Delivery: O2 Flow Rate (L/min): 2 L/min Invasive Lines / Tubes / Drains: Peripheral IV 01/19/25 Right Forearm (Active) Number of days: 4 Peripheral IV 01/23/25 Anterior;Distal;Right Forearm (Active) Number of days: 0 Enterostomy Gastric 20 Fr. LUQ (Active) Number of days: 70 Negative Pressure Wound Therapy Sacrum (Active) Number of days: 0 Central Line Indication: Hemodialysis Payne Indications: NA - patient does not have a Payne catheter Restraints: NA - patient is not restrained. Wounds: Wound/Incision 11/13/24 Pressure Injury Sacrum (Active) Date First Assessed/Time First Assessed: 11/13/24 1200 Present on Original Admission: No Primary Wound Type: Pressure Injury Location: Sacrum Pressure Injury Stage: Stage 3 Wound/Incision 11/15/24 Traumatic Arm Anterior;Left;Upper (Active) Date First Assessed/Time First Assessed: 11/15/24 0800 Primary Wound Type: Traumatic Location: Arm Wound Location Orientation: Anterior;Left;Upper Wound Description (Comments): Fistula Wound/Incision 11/15/24 Other (comment) Toe - third Anterior;Left (Active) Date First Assessed/Time First Assessed: 11/15/24 2213 Present on Original Admission: No Primary Wound Type: (c) Other (comment) Location: (c) Toe - third Wound Location Orientation: Anterior;Left Wound Description (Comments): Black 3rd and 4th ... Wound/Incision 11/19/24 Traumatic Achilles Left (Active) Date First Assessed/Time First Assessed: 11/19/24 1409 Primary Wound Type: Traumatic Location: Achilles Wound Location Orientation: Left Wound/Incision 11/19/24 Traumatic Heel Left (Active) Date First Assessed/Time First Assessed: 11/19/24 1410 Primary Wound Type: Traumatic Location: Heel Wound Location Orientation: Left Wound/Incision 01/19/25 Pressure Injury Head Posterior;Medial (Active) Date First Assessed/Time First Assessed: 01/19/25 0510 Present on Original Admission: Yes Primary Wound Type: Pressure Injury Location: Head Wound Location Orientation: Posterior;Medial Wound Description (Comments): scab, redness periwound Constitutional: General Appearance []WDWN []Obese []Cachectic [x]Thin [x]Ill Eyes: Inspection of Pupils/Irises Pupils round and react: [x]Yes []No Sclera: []Icteric [x]Non-Icteric Inspection of Conjunctiva/Lids Conjunctiva: []Injected [x]Non-Injected Lids: [x]Intact []Lesion Present ENT/Mouth: External Inspection of ears/nose [] Normal [] Scar/Lesion/Mass Inspection of teeth/lips/gums Dentition: [][place] Teeth []Dentures Lips/Gums: []Intact []Lesion Present Mucosa: [x][place] []Moist [x]Dry Neck: External Appearance Overall Appearance: [x]Normal []Lesion/Mass/Crepitus Present Trachea midline: [x]Yes []No Thyroid []Normal []Enlarged []Tender []Mass []Absent Respiratory: Respiratory effort [x]Labored []Non-Labored [] Mechanically-Ventilated Auscultation: crackles in RUL and RLL []Clear [x]Crackles []Wheezes [][place] Cardiovascular: Auscultation: mechanical valve clicks Rate: [x]Regular []Irregular []Tachycardia []Bradycardia Rhythm: [x]Regular []Irregular Murmur: [x]Present []Absent Extremities Peripheral Edema: []Present [x]Absent Varicosities: []Present [x]Absent Gastrointestinal: Abdomen Palpation: [x]Soft []Firm []Tender [x]Non-Tender []Distended [x]Non-distended Mass: []Present []Absent Bowel Sounds: [x]Present []Absent Hernia: []Present []Absent Liver/Spleen: []Hepatosplenomegaly []Organomegaly Absent Musculoskeletal: Inspection of Digits and Nails Cyanosis: []Present [x]Absent Clubbing: []Present [x]Absent Ischemia: []Present []Absent Infection: []Present []Absent Extremities GUAN Equally: Except ([]RUE []RLE []LUE []LLE) Strength/Tone: Intact and Normal ([]RUE []RLE []LUE []LLE) Skin: Inspection [x]Normal []Rash []Lesion []Ulcer Palpation [x]Warm []Cool []Dry []Clammy []Nodules []Induration []Skin-tightening Cap-Refill: [x] <3 sec [] >3 seconds (delayed) Neurologic: GCS EYE: 4 - Opens spontaneously GCS MOTOR: 6 - Obeys commands for movement GCS VERBAL: 5 - Oriented to person, place, time Total GCS: 15 [] Sensation grossly intact Psych: Mental Status Alert: [x]Yes [] No Oriented: []x0 []X1 []X2 [x]x3 Mood/Affect [x]Normal []Flat []Agitated []Depressed []Anxious []Calm []Sedated []NAD [facility] within last 24 hours- BMP: Recent Labs 01/22/25 0419 01/23/25 0430 01/24/25 042 NA 132* 140 139 K 4.4 3.4* 4.0 CL 94* 102 98 CO2 21* BUN 53* 22 27* CREATININE 4.18* 2.34* 3.62* CALCIUM 9.8 9.4 10.2 MG 2.6 2.1 2.3 PHOS 6.8* 4.5 5.1* LFTs: Recent Labs 01/22/25418 AST 51* ALT 44* PROT 7.6 ALBUMIN 2.2* BILITOT 0.9 ALKPHOS 274* Glucose: Recent Labs 01/21/25 1115 01/21/25 1859 01/22/25 0005 01/22/25 0419 01/22/25 0554 01/22/25 1318 01/22/25 2357 01/23/25 0430 01/23/25 0626 01/23/25 2317 01/24/25 0429 GLUCOSE -- -- -- 70* -- -- -- 80 -- -- 74 POCGLU 92 86 82 -- 81 77 101* -- 92 113* -- Procal: No results for input(s): PROCAL in the last 72 hours. CBC: Recent Labs 01/23/25 0430 01/23/25 1514 01/24/25 0610 WBC 11.1* 10.9* 11.5* HGB 7.3* 7.9* 7.9* 8.0* HCT 23.4* 25.3* 25.1* 27.0* PLT 345 346 355 MCV 88.6 89.4 94.1 RDW 18.5* 18.8* 19.4* ABGs: No results for input(s): PHART, YAS6SZR, PO2ART, DHU3JWX, SO2ART, P8WNHBAM in the last 72 hours. Lactic Acid: No results for input(s): LACTATE in the last 72 hours. INR: Recent Labs 01/23/25 0430 01/23/25 1514 01/24/25 0429 INR 2.0* 1.6* 1.5* Cardiac Injury Profile: No results for input(s): CKTOTAL, CKMB, TROPONINI in the last 72 hours. Labs in Last 3 months: Lab Results Component Value Date TSH 1.190 08/17/2023 INR 1.5 (H) 01/24/2025 Microbiology- Urine Cx: No results found for: URINECX Blood Cx: Lab Results Component Value Date BLOODCX No growth at 5 days 01/01/2025 Sputum Cx: Lab Results Component Value Date RESPCULT Rare respiratory ila present. 12/30/2024 RESPCULT Many Staphylococcus aureus (A) 12/30/2024 Gram Stain: Lab Results Component Value Date LABGRAM (A) 01/02/2025 Many Polymorphonuclear leukocytes per low power field LABGRAM Many Gram positive cocci (A) 01/02/2025 LABGRAM Moderate Gram positive bacilli (A) 01/02/2025 PNA PCR: Lab Results Component Value Date HUMANMETAPNE Not Detected 11/15/2024 COVID19: No results found for: COVID19 Legionella Ag: Lab Results Component Value Date LEGIONELLAPN Not Detected 11/14/2024 Strep Ag: No results for input(s): STREPPNEUMO in the last 72 hours. Imaging- === 01/19/25 === XR CHEST 1 VIEW - Impression - 1. Median sternotomy and valve repair. 2. Infiltrate in the lingula of the left upper lobe. 3. Prominence of the central pulmonary vasculature consistent with mild congestive heart failure/fluid overload. 4. The aeration of the lungs has improved mildly when compared to the previous study. Report Dictated on Electronically Signed By: Delon Torres MD Electronically Signed Date/Time: 01/24/2025 1:59 AM EDT === 01/19/25 === CT ABDOMEN PELVIS ANGIOGRAM W AND/OR WO IV CONTRAST - Impression - 1. Imaging does not identify the site and/or source of the GI bleed. There is no intraluminal IV contrast appreciated. There are multiple loops of fluid-filled small and large bowel. The rectum is mildly distended with intraluminal fluid, consider diarrhea. 2. There is a large posterior decubitus ulcer which extends to the sacrum and coccyx with locules of air, fluid, and edema, correlate with clinical physical exam. This is new compared to 11/16/2024. 3. Colonic diverticulosis. 4. Renal atrophy. This patient has end-stage renal disease and is receiving dialysis. 5. Cholelithiasis. The gallbladder is decompressed with wall thickening measuring 6-7 mm (differential includes poor distention, systemic process, cholecystitis). Consider nuclear medicine HIDA scan and/or ultrasound. 6. Bilateral small pleural effusions with compressive atelectasis and/or infiltrate. Cardiomegaly. 7. Other: IVC filter. Percutaneous gastrostomy tube. Additional findings, as above. Report Dictated on Electronically Signed By: Karly Parker MD Electronically Signed Date/Time: 01/20/2025 7:02 PM EDT Assessment and Plan: Principal Problem: Complication of tracheostomy (CMS/HCC) (HCC) Active Problems: Severe malnutrition (CMS/HCC) (HCC) BRBPR (bright red blood per rectum) GI Bleed, worsened by Warfarin Non-bleeding duodenal ulcer Supratherapeutic INR, now subtherapeutic Acute on chronic anemia, with blood loss anemia - patient continues to have multiple maroon - bright red colored bowel movements. - s/p 1U FFP transfusion on 01/22/25 - s/p 1U pRBC 01/24/25 - GI following, plan for colonoscopy today. PLAN: - holding warfarin in setting of GIB, INR currently 1.5 - SAILAJA following, monitor for s/s of bleeding - continue to trend H/H, Transfuse Hb <7 - Heparin held in anticipation of OR, will resume after colonoscopy in setting of subtherapeutic INR - vWF panel, factor 8 ristocetin assay, and peripheral blood smear pending - INR 1.5 ESRD (on HD MWF) HAGMA Hypotension, chronic HAGMA likely secondary to ESRD, patient due for dialysis today - Management per nephro - midodrine 15mg q6h - continue to trend BMP - Anion gap 20, BHB 10.5 - Lactic acid WNL Concern for aspiration Chronic hypoxemic respiratory failure Leukocytosis - CXR 01/24 with improved aeration, slightly worsening congestion - Will continue to trend CBC, monitor respiratory status - s/p tracheostomy, now removed - saturating appropriately on 2L NC - continue duo-neb TID - NPO in anticipation of colonoscopy Aortic valve stenosis s/p prosthetic valve replacement Paroxysmal A-fib - TTE 11/24/24 without mechanical valve regurgitation or stenosis - warfarin held in setting of supra-therapeutic INR (goal INR 2-3) - Metoprolol held d/t concern for bleed - continue q12 H/H and PT/INR - intermittently started heparin drip yesterday due to INR <2, now held in anticipation of colonoscopy today. Stage V sacral wound Necrotic L. 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 I personally obtained the francis and relevent portions of the history and performed physical exam. I reviewed the chart including MAR, labs, and radiology and agree with the patient's plan of action as discussed with the resident. This note reflects my plan of care as I have edited the note to reflect my findings and my assessment and plan. ROS documentation was reviewed and negative unless otherwise stated in HPI. Chief Complaint: GIB Additional pertinent interval history, ROS, and physical exam findings: Patient seen and examined. Awake, alert, following commands. Tolerating dialysis. Non-labored breathing. Otherwise no acute complaints. Assessment and Plan: GIB unclear etiology w/ bleeding worsened by Coumadin - Internal hemorrhoids Stage V Sacral Wound POA Supratherapeutic INR on Coumadin Acute on Chronic Anemia w/ blood loss anemia Aortic Valve Stenosis status post aortic valve replacement on coumadin Chronic Respiratory Failure with Hypoxia s/p Trach - now removed ESRD on HD Chronic Hypotension Afib on Coumadin Necrotic L toes - INR improved status post FFP. Plan for scope with GI today. Holding heparin pending scope today. Can restart if no active signs of bleeding. Continue midodrine 15mg q 6 hours - Hemoglobin thus far stable, check H/H q 6 hours. Transfuse for Hgb <7. Type and screen if not completed. PT/INR/Zoë as needed. - wound care following for sacral wound - surgery recommending wound vac - breathing stable status post tracheostomy removal. - continue Unasyn for sacral wound x 6 weeks - ID following. - monitor post scope if stable can transfer to [facility] tomorrow Code Status: Full Code Disposition: Remain in ICU Time spent preparing to see the patient, obtaining/reviewing separately obtained history, completing an appropriate medical examination of the patient, ordering medications/tests/procedures, documenting clinical information on the EMR, and/or coordinating care is a subsequent visit: 35 minutes (Level II). Darryn Higgins MD Pulmonary and Critical Care Medicine Attending Pager #[phone] [facility] Nephrology Progress Note Mr. Jun Snyder is a 59-year-old male with a history of end-stage renal disease (ESRD) on a Wednesday/Wednesday/Wednesday hemodialysis (HD) schedule. His ESRD has been complicated by chronic hypotension, for which he is maintained on midodrine 15 mg every 6 hours. He remains on intermittent HD with nephrology following, and no acute dialysis-related complications have been noted during this hospitalization. His chronic renal failure was confirmed on prior imaging showing renal atrophy. Management continues with a focus on volume support, monitoring of electrolytes, and hemodynamic stability, with adjustments made as needed based on his clinical course. BP 131/73 Pulse 95 Temp 36.1 C (97 F) (Temporal) Resp 19 Ht 1.778 m (5' 10) Wt 58.9 kg (129 lb 13.6 oz) SpO2 (!) 82% BMI 18.63 kg/m Input / Output: 24 HR: Intake/Output Summary (Last 24 hours) at 01/23/2025 1703 Last data filed at 01/23/2025 1615 Gross per 24 hour Intake 1325 ml Output 0 ml Net 1325 ml Physical Exam Alert and oriented x 1 NAD Neck: no JVD CV: RRR Lungs: CTA bilaterally Abd: soft, NT, ND Ext: no lower extremity edema Scheduled medications ampicillin-sulbactam, 3,000 mg, IntraVENous, q12h collagenase, , Topical, Daily ipratropium-albuterol, 3 mL, Nebulization, TID Lidocaine, 1 patch, Topical, Daily [Held by provider] metoprolol tartrate, 25 mg, Per G Tube, BID midodrine, 15 mg, Per G Tube, q6h mupirocin, 1 Application, Nasal, BID Continuous medications heparin, 5-30 Units/kg/hr sodium chloride, 20 mL/hr, Last Rate: 20 mL/hr (01/23/25 1648) PRN medications PRN medications: acetaminophen, collagenase, dextrose, dextrose, glucagon (rDNA), glucose, melatonin, naloxone, oxyCODONE OR oxyCODONE, prochlorperazine, sodium chloride, sodium chloride Results from last 7 days Lab Units 01/23/25 04301/22/25 0419 SODIUM mmol/L 140 132* POTASSIUM mmol/L 3.4* 4.4 CHLORIDE mmol/L 102 94* CO2 mmol/L BUN mg/dL 22 53* CREATININE mg/dL 2.34* 4.18* CALCIUM mg/dL 9.4 9.8 PROTEIN TOTAL g/dL -- 7.6 BILIRUBIN TOTAL mg/dL -- 0.9 ALK PHOS U/L -- 274* ALT U/L -- 44* AST U/L -- 51* GLUCOSE mg/dL 80 70* Results from last 7 days Lab Units 01/23/25 0430 01/22/25 0419 01/21/25 0243 MAGNESIUM mg/dL 2.1 2.6 2.5 Results from last 7 days Lab Units 01/23/25 1514 01/23/25 0430 01/22/25 1539 01/22/25 0419 WBC AUTO 10*3/uL -- 11.1* 10.6 10.6 HEMOGLOBIN g/dL 7.9* 7.3* 7.4* 8.0* HEMATOCRIT % 25.1* 23.4* 23.9* 25.1* PLATELETS 10*3/uL -- 345 292 330 Assessment & Plan: Problem: End-Stage Renal Disease (ESRD) on Hemodialysis Assessment: Patient with known ESRD on a Wednesday/Wednesday/Wednesday (MWF) hemodialysis schedule. Hemodialysis completed yesterday without complications. Labs show ongoing elevated BUN 22 mg/dL and creatinine 2.34 mg/dL, consistent with ESRD. Electrolytes post-HD are relatively stable: sodium 132 mmol/L, potassium 4.4 mmol/L, chloride 94 mmol/L, CO? 25 mmol/L. Chronic hypotension remains a concern; patient is maintained on midodrine 15 mg every 6 hours. No signs of volume overload or uremic symptoms (e.g., encephalopathy, pericarditis) at this time. Output monitoring ongoing -- no Payne catheter, tracking via clinical assessment. Weight today: 58.9 kg (previous documented weight stable). Plan adjusted considering ongoing bleeding risks (rectal bleeding history, held anticoagulation). Plan: Continue hemodialysis MWF schedule. Maintain midodrine 15 mg every 6 hours for blood pressure support. Monitor daily weights, intake/output (I/Os), and clinical volume status. Continue to monitor BUN/Creatinine and electrolyte panel post-HD sessions. No anticoagulation restarted at this time due to recent GI bleeding and supratherapeutic INR. Ensure appropriate vascular access site care. Nephrology to continue routine management and reassess HD prescription as needed based on volume status and labs. Please message me through [employer] chat with any questions or concerns. Wellington Nicole MD 01/23/2025 5:03 PM [facility] [address], [address] [place] [address] Office: [phone] Images from the original note were not included. Speech-Language Pathology SPEECH LANGUAGE PATHOLOGY [facility] Dysphagia Treatment Note Patient Name: Jun Snyder Evaluation Date: 01/23/2025 Date of : 1965 Admission Date: 01/19/2025 2:13 AM Age: 59 y.o. Room/Bed: T3-321/T3-321 A Subjective Patient alert and cooperative. Seen upright in bed. Answers all basic questions with dysphonic vocal quality. Follows all basic commands. No visitors at bedside. Spoke with RN Ahsan who cleared pt for treatment. Current Diet: Dietary Orders (From admission, onward) Start Ordered 01/24/25 0001 NPO diet with enteral medications Diet effective midnight Question Answer Comment Medications? with enteral medications NPO except: Sips of Water 01/23/25 1308 Oxygen: Oxygen Therapy: None (Room air) Pain: Discomfort with HOB elevation; RN managing PPE Worn: surgical mask, gown, gloves Objective & Assessment Dysphagia Treatment # of Activities: 1 Dysphagia Activity 1: repeat bedside swallow evaluation Patient with prior bedside swallow evaluation 10/26/2024 and a puree diet was recommended. Unfortunately, patient required intubation on 10/31/2024. Patient required trach / PEG. Trach was dislodged this admission. A repeat bedside swallow evaluation was completed 01/19/2025. NPO was recommended due to coughing with ice chips and increased RR. Today, I tested the swallow using lemon ice, applesauce and H2O. Patient is receptive for each bolus presentation. Oral bolus formation and AP transit are timely and complete. Patient is able to appropriately self limit bolus size with H2O via straw. Hyolaryngeal excursion is clinically reduced. Patient uses 2-3 swallows per bolus. Patients vocal quality is dysphonic. However, patient no longer demonstrating overt clinical evidence of airway penetration. Trach site is nearly completely closed. As such, will request MBSS in order to confirm pharyngeal function and determine least restricted menu appropriate for this patient. Patient is scheduled for colonoscopy tomorrow so will plan for 01/25/2025 for the MBSS Plan & Recommendations Plan: Please continue PEG TF. Ok for ice chips sparingly. Please order MBSS. D/C Recommendations: to be determined Education Education Given: diet recommendations, potential for additional diagnostic testing Given To: patient and RN Response: verbalizes understanding Goals Patient Stated Goal: To drink water. Encounter Problems Encounter Problems (Active) Swallowing Patient will participate in instrumental assessment of swallowing as appropriate (Progressing) Start: 01/19/25 Expected End: 02/02/25 Therapy Time E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 Individual Minutes Time In: 1315 Time Out: 1330 Minutes: 15 FRANKLIN Singh Images from the original note were not included. [facility] - Infectious Diseases Advanced Practice Provider Progress Note Subjective: Following patient for sacral OM. Notes reviewed. GI planning colonoscopy tomorrow. Wound Care applied wound vac to sacral wound. Patient reports back side is sore. Endorses intermittent SOB and cough. Denies fever, chills, CP, N/V, abdominal pain. No other new exacerbating or alleviating factors. Objective: Vitals: Patient Vitals for the past 24 hrs: BP Temp Temp src Pulse Resp SpO2 01/23/25 1300 131/73 -- -- 95 19 (!) 82 % 01/23/25 1200 124/76 -- -- 95 21 96 % 01/23/25 1100 121/70 -- -- 88 12 94 % 01/23/25 1000 119/72 -- -- 100 (!) 26 100 % 01/23/25 0900 122/70 -- -- 94 17 97 % 01/23/25 0800 119/67 -- -- 91 14 98 % 01/23/25 0747 -- -- -- 92 14 98 % 01/23/25 0700 122/69 -- -- 92 14 95 % 01/23/25 0600 127/71 -- -- 89 14 97 % 01/23/25 0500 116/64 -- -- 88 12 96 % 01/23/25 0400 125/73 36.1 C (97 F) Temporal 88 13 98 % 01/23/25 0300 130/70 -- -- 88 12 94 % 01/23/25 0200 124/68 -- -- 88 12 97 % 01/23/25 0100 118/67 -- -- 89 13 96 % 01/23/25 0000 148/71 36.8 C (98.3 F) Temporal 93 (!) 27 100 % 01/22/25 2300 124/66 -- -- 88 12 97 % 01/22/25 2200 134/76 -- -- 88 16 97 % 01/22/25 2100 129/67 -- -- 93 21 97 % 01/22/25 2000 116/66 36.7 C (98.1 F) Temporal 85 (!) 10 97 % 01/22/25 1900 125/66 -- -- 87 13 97 % 01/22/25 1800 -- -- -- 91 17 99 % 01/22/25 1700 -- -- -- 85 12 97 % 01/22/25 1600 -- 37 C (98.6 F) Temporal 90 17 97 % 01/22/25 1507 113/64 36.7 C (98.1 F) -- 93 21 -- 01/22/25 1500 113/70 -- -- 94 17 96 % 01/22/25 1406 120/66 37.1 C (98.7 F) -- -- -- -- 01/22/25 1400 115/65 -- -- 94 19 98 % 01/22/25 1343 107/64 37 C (98.6 F) -- 96 13 -- Physical Exam: Physical Exam Vitals and nursing note reviewed. Constitutional: General: He is not in acute distress. Appearance: Normal appearance. He is normal weight. He is not ill-appearing. Comments: NAD laying in bed. Cooperative, responds appropriately. Ill-appearing HENT: Head: Normocephalic and atraumatic. Right Ear: External ear normal. Left Ear: External ear normal. Nose: Nose normal. Mouth/Throat: Mouth: Mucous membranes are moist. Pharynx: Oropharynx is clear. Eyes: Extraocular Movements: Extraocular movements intact. Conjunctiva/sclera: Conjunctivae normal. Pupils: Pupils are equal, round, and reactive to light. Neck: Comments: Recent tracheostomy site healing Cardiovascular: Rate and Rhythm: Normal rate and regular rhythm. Pulses: Normal pulses. Heart sounds: Normal heart sounds. Pulmonary: Effort: Pulmonary effort is normal. Breath sounds: Normal breath sounds. No wheezing, rhonchi or rales. Comments: Breathing unlabored on room air. No wheezes, rales, rhonchi Abdominal: General: Abdomen is flat. Bowel sounds are normal. There is no distension. Palpations: Abdomen is soft. Tenderness: There is no abdominal tenderness. There is no guarding. Musculoskeletal: Right lower leg: No edema. Left lower leg: No edema. Skin: General: Skin is warm and dry. Comments: Sacral wound images reviewed. L toes 1-4 with dry gangrene LUE AVF Neurological: General: No focal deficit present. Mental Status: He is alert and oriented to person, place, and time. Psychiatric: Mood and Affect: Mood normal. Behavior: Behavior normal. Labs: Recent Labs 01/21/25 0243 01/22/25 0419 01/23/25 0430 NA 135* 132* 140 K 4.3 4.4 3.4* CL 96* 94* 102 CO2 BUN 46* 53* 22 CREATININE 2.99* 4.18* 2.34* GLUCOSE 60* 70* 80 CALCIUM 9.9 9.8 9.4 PROT -- 7.6 -- BILITOT -- 0.9 -- ALKPHOS -- 274* -- AST -- 51* -- ALT -- 44* -- Recent Labs 01/22/25 0419 01/22/25 1539 01/23/25 0430 WBC 10.6 10.6 11.1* HGB 8.0* 7.4* 7.3* HCT 25.1* 23.9* 23.4* PLT 330 292 345 LYMPHOPCT 14.1* 9.7* 12.2* MONOPCT 14.0* 14.5* 12.9 BASOPCT 1.1 0.8 1.1 NEUTROABS 6.6 7.2 7.2 Micro: 01/22 C auris screen: in process 01/22 A baumannii screen: in process Previous (SS) 01/02- sacral wound cx- E faecalis (Amp-S), skin ila, Clostridium clostrioforme 01/01- blood cx- 2/2 NG 12/30- blood cx- 2/2 NGTD 12/30- sputum cx- MSSA, resp ila 12/25- blood cx- 2/2 negative 12/14- sputum cx- MSSA, resp ila 12/14- MRSA pcr- MSSA 12/11- sputum cx- MSSA, resp ila Previous (ACH) 11/28- L pleural fluid- negative 11/16- abd fluid eswab- ASE faecalis 11/16- peritoneal cx- C glabrata 11/15- RPP- negative 11/15- sputum cx- resp ila 11/14- BAL pneumonia PCR- negative 11/14- BAL cx- resp ila 11/12- C diff PCR- negative 11/12- GI PCR- negative 11/02- MRSA PCR- MSSA 11/02- RPP- negative 11/01- pneumonia PCR- MSSA, RSV 11/01- BAL cx- MSSA, resp ila 11/01- blood cx- 2/2 negative 10/25- H pylori ag- negative 10/19- BAL cx- resp ila 10/19- BAL pneumonia PCR- coronavirus, RSV 10/16- BAL cx- resp ila 10/11- GI PCR- negative 10/03- blood cx- 2/2 negative 10/03- 4plex- RSV Lines: AVF PIV Radiography/Echo/Other: 01/19 CXR 1. Lingular infiltrate. 2. Prominence of the central pulmonary vasculature consistent with mild congestive heart failure/fluid overload. 3. Overall significant improvement in the aeration of the lungs when compared to the previous study. 01/20 CTA Abd/Pelvis 1. Imaging does not identify the site and/or source of the GI bleed. There is no intraluminal IV contrast appreciated. There are multiple loops of fluid-filled small and large bowel. The rectum is mildly distended with intraluminal fluid, consider diarrhea. 2. There is a large posterior decubitus ulcer which extends to the sacrum and coccyx with locules of air, fluid, and edema, correlate with clinical physical exam. This is new compared to 11/16/2024. 3. Colonic diverticulosis. 4. Renal atrophy. This patient has end-stage renal disease and is receiving dialysis. 5. Cholelithiasis. The gallbladder is decompressed with wall thickening measuring 6-7 mm (differential includes poor distention, systemic process, cholecystitis). Consider nuclear medicine HIDA scan and/or ultrasound. 6. Bilateral small pleural effusions with compressive atelectasis and/or infiltrate. Cardiomegaly. 7. Other: IVC filter. Percutaneous gastrostomy tube. Additional findings, as above. Antimicrobials, Start/End Dates: Anidulafungin: 11/27-11/28 Micafungin: 11/28- 12/10 Linezolid: 12/30-12/31 Pip/tazo: 12/30-01/01 Vancomycin: 12/31- 01/03 Meropenem: 01/01-01/04 Amp-Sulbactam: 01/06- present Impression: Sacral wound infection w osteomyelitis bedside debridement w/ exposed bone (01/02) sacral wound cx: ASEC, Clostridium Cx now with large clots Tracheostomy dislodgement BRBPR EGD with non-bleeding duodenal ulcer. Leukocytosis- resolved Recurrent MSSA LRTI- treated Acute hypoxic respiratory failure s/p trach C glabrata, ASEC peritonitis s/p treatment Pneumoperitoneum s/p ex-lap, EGD, & abhishek gastrostomy tube placement (11/16/24) Hx GIB s/p GDA embolization (10/14/24) PEA arrest x2 (10/14/24, 11/01/24) Severe aortic stenosis s/p AVR (23mm [place] mechanical- 10/12/24) LLE DVT's c/b ishemic L foot s/p IVC filter ESRD on HD via LUE AVF MWF Afib on amiodarone Plan: Following patient for sacral osteomyelitis. Sacral wound s/p debridement to bone on 01/02 (Cx with E faecalis and Clostridium). Wound Care following- wound vac applied today. Plan to continue renally-dosed Amp-Sulbactam through 02/13/25 to complete 6 week course. Monitor infectious parameters. Continue wound care. ID will continue to follow. Case and plan discussed with Dr. Starr Based on diagnoses and management, combination of acute and chronic problems, exacerbations and/or acuity, this visit should be considered to be of moderate complexity. Mikala MORAN PA-C [facility] [place] Images from the original note were not included. Department of General Surgery Daily Progress Note ADMIT DATE: 01/19/2025 TODAY'S DATE: 01/23/2025 HPI: Jun Snyder is a 59 y.o. male with significant past history of acute respiratory failure and trach dependence, HTN, a-fib, occipital ICH, acute renal failure (HD), s/p trach and PEG and Dx lap in October 2024 who presents after tracheostomy dislodgement. Surgery was consulted for evaluation of bleeding sacral wound. Patient denies pain related to the sacral wound at time of evaluation. Patient unsure how long wound has been present. Per chart review, first documented image of the sacral pressure injury was on 11/28/24. SUBJECTIVE: No acute events overnight. Has not had recent debridement of wound per patient Interval history: 01/21- Consult to ACS for evaluation of bleeding sacral wound 01/22- Wound care for Vac and ACS to sign off 01/23- Wound vac application per wound care team, surgery signed off OBJECTIVE: VITALS: BP 131/73 Pulse 95 Temp 36.1 C (97 F) (Temporal) Resp 19 Ht 1.778 m (5' 10) Wt 58.9 kg (129 lb 13.6 oz) SpO2 (!) 82% BMI 18.63 kg/m INTAKE/OUTPUT: Intake/Output Summary (Last 24 hours) at 01/23/2025 1320 Last data filed at 01/23/2025 0626 Gross per 24 hour Intake 1241 ml Output 40 ml Net 1201 ml I/O last 3 completed shifts: In: 2417 (41 mL/kg) [I.V.:1484 (25.2 mL/kg); Blood:216; NG/GT:717] Out: 2095 (35.6 mL/kg) [Stool:40] Weight: 58.9 kg No intake/output data recorded. PHYSICAL EXAM: CONSTITUTIONAL: awake, alert, cooperative, no apparent distress HEENT: No scleral icterus, EOMI NECK: Supple, no thyromegaly LUNGS: No increased work of breathing, good air exchange CARDIOVASCULAR: Well perfused, RRR ABDOMEN: Soft, non-distended, non-tender, maroon diarrhea during exam GENITAL/URINARY: Not examined MUSCULOSKELETAL: There is no redness, warmth, or swelling of the joints. Full range of motion noted. Necrosis to left toes 1-4. NEUROLOGIC: Awake, alert, oriented to name, place and time. SKIN: Large sacral wound with significant amount of clotted blood, no obvious site of bleeding. Normal skin color, texture, no redness, warmth, or swelling. Health tissue bed. LABS Results from last 7 days Lab Units 01/23/25 0430 01/22/25 1539 01/22/25 0419 WBC AUTO 10*3/uL 11.1* 10.6 10.6 HEMOGLOBIN g/dL 7.3* 7.4* 8.0* HEMATOCRIT % 23.4* 23.9* 25.1* PLATELETS 10*3/uL 345 292 330 Results from last 7 days Lab Units 01/23/25 0430 01/22/25 0419 01/21/25 0243 SODIUM mmol/L 140 132* 135* POTASSIUM mmol/L 3.4* 4.4 4.3 CHLORIDE mmol/L 102 94* 96* CO2 mmol/L 25 25 24 BUN mg/dL 22 53* 46* CREATININE mg/dL 2.34* 4.18* 2.99* GLUCOSE mg/dL 80 70* 60* CALCIUM mg/dL 9.4 9.8 9.9 Results from last 7 days Lab Units 01/22/25 0419 ALK PHOS U/L 274* BILIRUBIN TOTAL mg/dL 0.9 BILIRUBIN DIRECT mg/dL 0.7* PROTEIN TOTAL g/dL 7.6 ALT U/L 44* AST U/L 51* No results found for: LIPASE Results from last 7 days Lab Units 01/23/25 0430 01/22/25 0419 01/21/25 0243 MAGNESIUM mg/dL 2.1 2.6 2.5 Results from last 7 days Lab Units 01/23/25 0430 01/22/25 1538 01/22/25 1043 INR 2.0* 3.1* 5.5* Current Inpatient Medications Scheduled Meds:ampicillin-sulbactam, 3,000 mg, IntraVENous, q12h collagenase, , Topical, Daily ipratropium-albuterol, 3 mL, Nebulization, TID Lidocaine, 1 patch, Topical, Daily [Held by provider] metoprolol tartrate, 25 mg, Per G Tube, BID midodrine, 15 mg, Per G Tube, q6h mupirocin, 1 Application, Nasal, BID polyethylene glycol, 4,000 mL, Oral, Once Continuous Infusions:sodium chloride, 20 mL/hr PRN Meds:PRN medications: acetaminophen, collagenase, dextrose, dextrose, glucagon (rDNA), glucose, melatonin, naloxone, oxyCODONE OR oxyCODONE, prochlorperazine, sodium chloride ASSESSMENT AND PLAN: Jun Snyder is a 59 y.o. male that presents with large sacral wound with blood clots, no active bleeding. - No acute surgical intervention - Consult wound care for wound vac placement 01/23, Change MWF - ACS to sign off, please call with questions or concerns - Rest of care per primary - Discussed with DENIA Beach CNP 01/23/25 1:20 PM Cosigned by Ivett Buckley MD at 01/25/2025 11:05 AM EDT Associated attestation - Ivett Buckley MD - 01/25/2025 11:05 AM EDT ATTENDING ADDENDUM Patient Active Problem List Diagnosis Anemia Paroxysmal A-fib ([facility]) ([facility]) HTN (hypertension) ESRD on hemodialysis ([facility]) ([facility]) 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 Diverticulosis Nonrheumatic aortic valve stenosis Calcification of abdominal aorta ([facility]) Missed vaccination due to patient refusal Tobacco abuse Alcohol use disorder in remission Atrial flutter, unspecified type (HCC) RSV (acute bronchiolitis due to respiratory syncytial virus) Aortic stenosis Upper GI bleed S/P AVR Acute hypoxic respiratory failure ([facility]) Acute encephalopathy Pneumoperitoneum Gastric ulceration Severe malnutrition (CMS/HCC) (HCC) Pleural effusion Peritonitis due to fungus (HCC) History of abdominal surgery Leg DVT (deep venous thromboembolism), acute, left (HCC) 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, 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) 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[facility]) Leukocytosis Decubitus ulcer of sacral region, unstageable (HCC) Pneumonia of both lungs due to methicillin susceptible Staphylococcus aureus (MSSA) ([facility]) Sacral osteomyelitis ([facility]/HCC) (HCC) Acute respiratory failure with hypoxia ([facility]) [J96.01] Tracheostomy care ([facility]) [Z43.0] 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[facility]) senior living (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 Complication of tracheostomy ([facility]) ([facility]) BRBPR (bright red blood per rectum) I have personally performed a face to face diagnostic evaluation on this patient. I have reviewed and agree with the care plan as documented above by my FUEL CELL ENGINEER/DANIELLE. I personally discussed the review of systems and interviewed the patient along with performing a physical examination. In addition, I discussed the patient's condition and treatment options with him/her when possible. All of the patient's questions were answered and family updated when appropriate and possible. I I performed a physical exam and ROS on the same date of service as above. My findings agree with the above note except for any details corrected below. 59M with a recent prolonged hospitalization in September 2024 for decompensated HF 2/2 aortic stenosis requiring AVR, that was complicated by UGIB, renal failure requiring CRRT and multiple PEA arrests and ultimately underwent trach/PEG/laparoscopic Abhishek gastrostomy on 11/14 & 11/16. He as recently decannulated (trach accidentally became dislodged but patient has done well without it) however he is now being evaluated for acute anemia (Hb 6.6) with concerns from blood loss from sacral wound in the setting of supratherapeutic INR. Surgery is consulted for evaluation of the wound. I evaluated the patient on 01/23 Hb 8 ->7.3, PLT 345, INR now 1.6 (from 8.1 -> 5.5) Azotemia improving GI following for multiple bloody BMs, and non-bleeding superficial duodenal ulcer The sacral wound is now hemostatic, coagulopathic bleeding has resolved with correction of INR No acute surgical intervention Wound vac placement today by wound care team Surgery will sign off, please do not hesitate to call with questions or concerns Level of Medical Decision Making: risk of morbidity from additional diagnostic testing or treatment due to bleeding complications from wound []High [x]Moderate []Low Complexity: Acute illness with systemic symptoms (MOD) Risk: Prescription drug management (MOD) Personally Reviewed/Independently interpreted patient's: [x]Epic notes []Radiology studies [x]Labs []EKG []Ordering tests []Other Discussed/ With: [x]Patient/Family [x]RN []Consultants []SW/TCC []Other Total Care Time (combined between FUEL CELL ENGINEER/PA-C and myself) throughout the day today was >= 35 minutes (including chart/data review/analysis, care coordination, and [id number] encounter), and was spent discussing/counseling the patient/family regarding the care plan for this patient. I examined the patient independently. I reviewed relevant data myself and may have also done so in the context of team rounds. A full chart review was performed. Ivett Buckley MD Division of Trauma Department of Surgery [facility] Images from the original note were not included. Department of Internal Medicine Gastroenterology Progress Note SUBJECTIVE: GI following for GI bleed. CTA on 01/20/25 with no identified GI bleeding. Patient evaluated yesterday with large maroon blood on chux as well as melena. EGD performed 01/21/25 with hiatal hernia, intact gastrostomy with patent G tube in gastric body, one non-bleeding superficial duodenal ulcer with no stigmata of bleeing in the duodenal bulb, clip from previous noted. No bleeding. Recommend PPI daily. ICU team discontinued PPI- suspicion of drug interaction causing in INR. 01/21/25 afternoon patient sacral wound dressing removed without active bleeding noted. Wound care has been consulted, surgery has signed off. Patient INR supratherapeutic 01/22/25, this AM therapeutic for patient with valve at 2.0. Hgb 8.0-->7.3 this AM. This AM RN reports 4 bloody BM overnight. Patient denies abdominal pain, nausea, vomiting. Hoping to be able to have at least clear liquids today. TF infusing currently. . Medications Scheduled Meds: Current Facility-Administered Medications: acetaminophen (Tylenol) tablet 1,000 mg, 1,000 mg, Oral, q8h PRN, Steve Lassiter MD, 1,000 mg at 01/22/25 0902 ampicillin-sulbactam (Unasyn) 3,000 mg in sodium chloride 0.9 % 100 mL IVPB (Add-Reynolds), 3,000 mg, IntraVENous, q12h, Steve Lassiter MD, Stopped at 01/23/25 0504 collagenase 250 UNIT/GM ointment, , Topical, PRN, Steve Lassiter MD, Given at 01/21/25 1339 collagenase 250 UNIT/GM ointment, , Topical, Daily, Steve Lassiter MD, Given at 01/22/25 0859 dextrose 5 % infusion, 100 mL/hr, IntraVENous, PRN, Minor Collier MD, Last Rate: 100 mL/hr at 01/21/25 0636, 100 mL/hr at 01/21/25 0636 dextrose 50 % solution 12.5 g, 12.5 g, IntraVENous, PRN, Minor Collier MD, 12.5 g at 01/21/25 0616 glucagon (human recombinant) injection 1 mg, 1 mg, IntraMUSCular, PRN, Minor Collier MD glucose oral gel 15 g, 15 g, Oral, PRN, Minor Collier MD ipratropium-albuterol (Duo-Neb) 0.5-2.5 mg/3 mL nebulizer solution 3 mL, 3 mL, Nebulization, TID, Steve Lassiter MD, 3 mL at 01/23/25 0747 Lidocaine 4 % patch 1 patch, 1 patch, Topical, Daily, Steve Lassiter MD, 1 patch at 01/22/25 0859 melatonin tablet 5 mg, 5 mg, Per G Tube, Nightly PRN, Steve Lassiter MD [Held by provider] metoprolol tartrate (Lopressor) tablet 25 mg, 25 mg, Per G Tube, BID, Steve Lassiter MD, 25 mg at 01/19/25 0916 midodrine (Proamatine) tablet 15 mg, 15 mg, Per G Tube, q6h, Steve Lassiter MD, 15 mg at 01/23/25 0206 mupirocin (Bactroban) 2 % ointment 1 Application, 1 Application, Nasal, BID, Steve Lassiter MD, 1 Application at 01/22/25 0900 naloxone (Narcan) injection 0.4 mg, 0.4 mg, IntraVENous, q5 min PRN, Steve Lassiter MD oxyCODONE (Roxicodone) immediate release tablet 2.5 mg, 2.5 mg, Oral, q6h PRN, 2.5 mg at 01/20/25 2206 OR oxyCODONE (Roxicodone) immediate release tablet 5 mg, 5 mg, Oral, q4h PRN, Steve Lassiter MD, 5 mg at 01/22/25 0901 Potassium Chloride in NaCl IVPB 20 mEq, 20 mEq, IntraVENous, Once, Nils Boyle DO prochlorperazine (Compazine) injection 5 mg, 5 mg, IntraVENous, q6h PRN, Sangeeta Reyes, DO sodium chloride 0.9 % infusion, 250 mL/hr, IntraVENous, PRN, Nils S Salh, DO OBJECTIVE VITALS: BP 127/71 Pulse 92 Temp 36.1 C (97 F) (Temporal) Resp 14 Ht 5' 10 (1.778 m) Wt 129 lb 13.6 oz (58.9 kg) SpO2 98% BMI 18.63 kg/m Average, Min, and Max for last24 hours Vitals: TEMPERATURE: Temp Av.8 C (98.3 F) Min: 36.1 C (97 F) Max: 37.3 C (99.2 F) RESPIRATIONS RANGE: Resp Av.4 Min: 10 Max: 27 PULSE RANGE: Pulse Av Min: 85 Max: 113 BLOOD PRESSURE RANGE: Systolic (24hrs), Av , Min:87 , Max:148 ; Diastolic (24hrs), Av, Min:44, Max:88 PULSE OXIMETRY RANGE:SpO2 Av.6 % Min: 94 % Max: 100 % I/O last 3 completed shifts: In: 2417 (41 mL/kg) [I.V.:1484 (25.2 mL/kg); Blood:216; NG/GT:717] Out: 2095 (35.6 mL/kg) [Stool:40] Weight: 58.9 kg Constitutional: No acute distress. Looks chronically ill, cachectic. Eyes: Pupils are equal and round; Conjunctiva are not injected; Sclera are non-icteric. ENT: Ears/nose without external abnormalities. Oral mucosa is pink and semi moist. Respiratory: Clear to auscultation bilaterally without any added sounds. Effort is normal Heart: Regular, Normal S1 and S2. No murmur; No added sounds. Abdomen: Normal BS, soft, non-tender, non-distended; no hepatomegaly. PEG in place, TF infusing. Extremities/Skin: Skin warm to touch and well perfused. Musculoskeletal: Head - normocephalic. Neck - supple Psychiatric: AAO x 3, more awake today, answers appropriately, normal mood, normal affect. Non-focal. Data Recent blood work, radiologic study and endoscopic study were reviewed with the patient. CBC: Recent Labs 01/22/25 0419 01/22/25 1539 01/23/25 0430 WBC 10.6 10.6 11.1* RBC 2.89* 2.69* 2.64* HGB 8.0* 7.4* 7.3* HCT 25.1* 23.9* 23.4* MCV 86.9 88.8 88.6 MCH 27.7 27.5 27.7 MCHC 31.9 31.0 31.2 RDW 18.6* 18.4* 18.5* PLT 330 292 345 MPV 8.8* 8.2* 9.1 CMP: Recent Labs 01/21/25 0243 01/22/25 0419 01/23/25 0430 NA 135* 132* 140 K 4.3 4.4 3.4* CL 96* 94* 102 CO2 BUN 46* 53* 22 CREATININE 2.99* 4.18* 2.34* GLUCOSE 60* 70* 80 CALCIUM 9.9 9.8 9.4 PROT -- 7.6 -- BILITOT -- 0.9 -- ALKPHOS -- 274* -- AST -- 51* -- ALT -- 44* -- PT/INR: Recent Labs 01/22/25 1043 01/22/25 1538 01/23/25 0430 INR 5.5* 3.1* 2.0* IR Embolization 10/14/2024 IMPRESSION: Angiography of the celiac and superior mesenteric artery vasculature demonstrates no active extravasation. Of note, branches of the gastroduodenal artery approached previously placed endoscopic clip. This is likely representing hemorrhagic source. Technically successful and uneventful embolization of the gastroduodenal artery without opacification of related branches. CTA angiogram with and without IV contrast 01/20/25 FINDINGS: Heart: The heart is enlarged. Lung bases: Bilateral small pleural effusions are present, right greater than left, with compressive atelectasis and/or infiltrate. Osseous structures: There is no acute osseous process. There is narrowing of both hips. Liver: There is diffuse fatty infiltration of the liver. Gallbladder/Biliary tree: Multiple gallstones are present within a decompressed and contracted gallbladder with wall thickening measuring 6-7 mm (differential includes poor distention, systemic process, cholecystitis). There is no significant biliary ductal distention. Spleen: Normal. Adrenals: Normal. Pancreas: Normal. Kidneys/Bladder: The kidneys are significantly atrophied with cortical thinning. There is no hydronephrosis. This patient has end-stage renal disease. The bladder contour is normal. Prostate: The prostate gland is not enlarged. Peritoneal Cavity/Retroperitoneum: There is no lymphadenopathy. Clips are present within the mesentery adjacent to the stomach and duodenum in the right upper quadrant, unchanged. Soft tissues: There is a soft tissue ulcer with locules of air, edema, and fluid which extends to the sacrum and coccyx and measures a distance of 11.3 cm on sagittal exam and this is new compared to 11/16/2024. GI Tract: A percutaneous gastrostomy tube is present anteriorly. Intraluminal fluid is present within multiple loops of small and large bowel including the rectum. There is no appreciable intraluminal IV contrast to identify site and/or source of GI bleed as the intraluminal contents appear similar to precontrast exam. There is no bowel obstruction. No appreciable free air. The appendix is not identified with certainty. Multiple colonic diverticuli are present. Vasculature: Atherosclerotic calcifications are present along the aorta and branches. There is ectasia of the infrarenal aorta. An IVC filter is present. IMPRESSION: 1. Imaging does not identify the site and/or source of the GI bleed. There is no intraluminal IV contrast appreciated. There are multiple loops of fluid-filled small and large bowel. The rectum is mildly distended with intraluminal fluid, consider diarrhea. 2. There is a large posterior decubitus ulcer which extends to the sacrum and coccyx with locules of air, fluid, and edema, correlate with clinical physical exam. This is new compared to 11/16/2024. 3. Colonic diverticulosis. 4. Renal atrophy. This patient has end-stage renal disease and is receiving dialysis. 5. Cholelithiasis. The gallbladder is decompressed with wall thickening measuring 6-7 mm (differential includes poor distention, systemic process, cholecystitis). Consider nuclear medicine HIDA scan and/or ultrasound. 6. Bilateral small pleural effusions with compressive atelectasis and/or infiltrate. Cardiomegaly. 7. Other: IVC filter. Percutaneous gastrostomy tube. Additional findings, as above. Endoscopic Review EGD 10/14/2024 EGD 10/24/24 EGD 11/14/24 EGD 01/21/25 ASSESSMENT AND PLAN Melena- EGD 01/21/25 with non bleeding duodenal ulcer BRBPR- ? Rectal bleeding vs. Bleeding from sacral wound, CTA negative for active bleeding Acute on chronic anemia- multifactorial History of UGI Bleed- s/p EGD 10/14/24 with clot noted in D1, no intervention, IR GDA embolization 10/14/24 A. Fib s/p aortic valve replacement- 10/12/24, Coumadin, last dose [facility]/18/25 [facility] Stage V sacral wound Necrotic left toes Supratherapeutic INR Acute Right occipital ICH- 10/22/24 ESRD on HD A. Fib- Coumadin, last dose 01/18/25 - Patient with multiple episodes of BRBPR over last 24 hour per RN - INR now therapeutic at 2.0 (mechanical valve) - CTA was negative for active bleeding on , EGD with non bleeding ulcer, given continued BRBPR tentative plan for colonoscopy tomorrow - Recommend PPI daily - Clear liquid diet ok from GI standpoint if cleared by speech - NPO and hold TF at midnight - Ok to give prep through PEG - Management of sacral wound per wound care - Continue to monitor for overt signs of GI bleeding - Continue medical management and supportive care per primary team - Continue to monitor H/H and transfuse per primary team - Antibiotics per primary team - GI to follow ATTENDING NOTE: Pt is being followed by inpatient GI service for: GIB Above note has also been edited to reflect my additional findings and recommendations Family present at bedside: none at time of my evaluation Brief Exam Gen: +ill, NAD HEENT: anicteric sclera Chest: normal respiratory effort Abd: benign Ext: +skin changes toes, +scattered ecchymoses Neuro: nonfocal Labs/Studies reviewed in Epic ASSESSMENT/PLAN: GIB - Hematochezia Chronic Anticoagulation -h/o Coumadin - INR was 5.5 - 8.0, now 1.5 H/O EGD - duodenal ulcer - nonbleeding, superficial PEG tube in place Anemia ESRD on HD --Continue supportive care in ICU --Serial H/H, transfuse as appropriate --Will plan for Colonoscopy (bowel preparation through PEG tube) --Above note has been edited to reflect updated assessment/plan/recommendations CHADD DAVIS MD ICU Progress Note Name: Jun Snyder : 1965(59 y.o.) Date: 01/23/25 Team: MICU Attending: Dr. Higgins Subjective: Hospital Summary: Mr Snyder is a 59 year old male who presented to [facility] 01/19 after inadvertent removal of his tracheostomy. He was transferred to [facility] ICU for surgical evaluation. On arrival he was maintaining appropriate O2 saturations on room air and the decision was made to leave the tracheostomy out. Able to be transferred out of ICU later that day. On 01/20 critical care and GI were consulted due to rectal bleeding. At that time patient determined to be stable to remain on GMF. On the morning of 01/21, GI recommended ICU transfer for EGD which revealed non-bleeding duodenal ulcer. At that time patient's sacral wound was noted to be bleeding. Have been trending INR's and H&H, currently stable. Received one unit of FFP per ZOË panel, patient still having bloody stools with GI following. Interval Events: Overnight, patient had bloody BM. Other NAEO, H/H has remained stable. Patient still NPO. This morning patient comfortable, complaining of dull L. Sided abdominal wall pain, endorses a feeling similar to muscle soreness. He also endorses rib pain likely secondary to CPR. Scheduled Meds:ampicillin-sulbactam, 3,000 mg, IntraVENous, q12h collagenase, , Topical, Daily ipratropium-albuterol, 3 mL, Nebulization, TID Lidocaine, 1 patch, Topical, Daily [Held by provider] metoprolol tartrate, 25 mg, Per G Tube, BID midodrine, 15 mg, Per G Tube, q6h mupirocin, 1 Application, Nasal, BID Continuous Infusions: Objective: Last Vitals: BP MAP 127/71 (01/23/25 0600) 87 (01/23/25 0600) Arterial BP MAP Temp 36.1 C (97 F) (01/23/25 0400) Pulse 89 (01/23/25 0600) Resp 14 (01/23/25 06) SpO2 97 % (01/23/25 06) Weight 58.9 kg (129 lb 13.6 oz) (01/19/25 0657) BMI Body mass index is 18.63 kg/m . I/O: 01/22 0700 - 01/23 659 In: 1491 [I.V.:758] Out: 2094 Ventilator: Oxygen Delivery: O2 Flow Rate (L/min): 2 L/min Invasive Lines / Tubes / Drains: Peripheral IV 01/19/25 Right Forearm (Active) Number of days: 3 Enterostomy Gastric 20 Fr. LUQ (Active) Number of days: 69 Central Line Indication: Hemodialysis Payne Indications: NA - patient does not have a Payne catheter Restraints: NA - patient is not restrained. Wounds: Wound/Incision 11/13/24 Pressure Injury Sacrum (Active) Date First Assessed/Time First Assessed: 11/13/24 1200 Present on Original Admission: No Primary Wound Type: Pressure Injury Location: Sacrum Pressure Injury Stage: Stage 3 Wound/Incision 11/15/24 Traumatic Arm Anterior;Left;Upper (Active) Date First Assessed/Time First Assessed: 11/15/24 0800 Primary Wound Type: Traumatic Location: Arm Wound Location Orientation: Anterior;Left;Upper Wound Description (Comments): Fistula Wound/Incision 11/15/24 Other (comment) Toe - third Anterior;Left (Active) Date First Assessed/Time First Assessed: 11/15/24 2213 Present on Original Admission: No Primary Wound Type: (c) Other (comment) Location: (c) Toe - third Wound Location Orientation: Anterior;Left Wound Description (Comments): Black 3rd and 4th ... Wound/Incision 11/19/24 Traumatic Achilles Left (Active) Date First Assessed/Time First Assessed: 11/19/24 1409 Primary Wound Type: Traumatic Location: Achilles Wound Location Orientation: Left Wound/Incision 11/19/24 Traumatic Heel Left (Active) Date First Assessed/Time First Assessed: 11/19/24 1410 Primary Wound Type: Traumatic Location: Heel Wound Location Orientation: Left Wound/Incision 01/19/25 Pressure Injury Head Posterior;Medial (Active) Date First Assessed/Time First Assessed: 01/19/25 0510 Present on Original Admission: Yes Primary Wound Type: Pressure Injury Location: Head Wound Location Orientation: Posterior;Medial Wound Description (Comments): scab, redness periwound Constitutional: General Appearance []WDWN []Obese []Cachectic []Thin [x]Ill Eyes: Inspection of Pupils/Irises Pupils round and react: [x]Yes []No Sclera: []Icteric []Non-Icteric Inspection of Conjunctiva/Lids Conjunctiva: []Injected [x]Non-Injected Lids: [x]Intact []Lesion Present ENT/Mouth: External Inspection of ears/nose [] Normal [] Scar/Lesion/Mass Inspection of teeth/lips/gums Dentition: [][place] Teeth []Dentures Lips/Gums: []Intact []Lesion Present Mucosa: [][place] []Moist []Dry Neck: External Appearance Overall Appearance: [x]Normal []Lesion/Mass/Crepitus Present Trachea midline: [x]Yes []No Thyroid []Normal []Enlarged []Tender []Mass []Absent Respiratory: Respiratory effort []Labored [x]Non-Labored [] Mechanically-Ventilated Auscultation [x]Clear []Crackles []Wheezes [][place] Cardiovascular: Auscultation Rate: [x]Regular []Irregular []Tachycardia []Bradycardia Rhythm: [x]Regular []Irregular Murmur: [x]Present []Absent Extremities Peripheral Edema: []Present [x]Absent Varicosities: []Present []Absent Gastrointestinal: Abdomen Palpation: [x]Soft []Firm [x]Tender, LUQ and LLQ []Non-Tender []Distended [x]Non-distended Mass: []Present []Absent Bowel Sounds: [x]Present []Absent Hernia: []Present []Absent Liver/Spleen: []Hepatosplenomegaly []Organomegaly Absent Musculoskeletal: Inspection of Digits and Nails Cyanosis: []Present [x]Absent Clubbing: []Present [x]Absent Ischemia: []Present []Absent Infection: []Present []Absent Extremities GUAN Equally: Except ([]RUE []RLE []LUE []LLE) Strength/Tone: Intact and Normal ([]RUE []RLE []LUE []LLE) Skin: Inspection [x]Normal []Rash []Lesion []Ulcer Palpation []Warm []Cool []Dry []Clammy []Nodules []Induration []Skin-tightening Cap-Refill: [x] <3 sec [] >3 seconds (delayed) Neurologic: GCS EYE: 4 - Opens spontaneously GCS MOTOR: 6 - Obeys commands for movement GCS VERBAL: 5 - Oriented to person, place, time Total GCS: 15 [] Sensation grossly intact Psych: Mental Status Alert: [x]Yes [] No Oriented: []x0 []X1 []X2 [x]x3 Mood/Affect []Normal []Flat []Agitated []Depressed []Anxious [x]Calm []Sedated []NAD [facility] Labs within last 24 hours- BMP: Recent Labs 01/21/2524201/22/2541801/23/25429 NA 135* 132* 140 K 4.3 4.4 3.4* CL 96* 94* 102 CO2 BUN 46* 53* 22 CREATININE 2.99* 4.18* 2.34* CALCIUM 9.9 9.8 9.4 MG 2.5 2.6 2.1 PHOS 5.3* 6.8* 4.5 LFTs: Recent Labs 01/22/25418 AST 51* ALT 44* PROT 7.6 ALBUMIN 2.2* BILITOT 0.9 ALKPHOS 274* Glucose: Recent Labs 01/21/25 0243 01/21/25 0246 01/21/25 0736 01/21/25 1115 01/21/25 1859 01/22/25 0005 01/22/25 0419 01/22/25 0554 01/22/25 1318 01/22/25 2357 01/23/25 0430 01/23/25 0626 GLUCOSE 60* -- -- -- -- -- 70* -- -- -- 80 -- POCGLU -- < > 92 92 86 82 -- 81 77 101* -- 92 < > = values in this interval not displayed. Procal: No results for input(s): PROCAL in the last 72 hours. CBC: Recent Labs 01/22/2541801/22/25 1539 01/23/25 0430 WBC 10.6 10.6 11.1* HGB 8.0* 7.4* 7.3* HCT 25.1* 23.9* 23.4* PLT 330 292 345 MCV 86.9 88.8 88.6 RDW 18.6* 18.4* 18.5* ABGs: No results for input(s): PHART, EET1BAU, PO2ART, FKW6MOX, SO2ART, M4UDZCMV in the last 72 hours. Lactic Acid: No results for input(s): LACTATE in the last 72 hours. INR: Recent Labs 01/22/25 1043 01/22/25 1538 01/23/25 0430 INR 5.5* 3.1* 2.0* Cardiac Injury Profile: No results for input(s): CKTOTAL, CKMB, TROPONINI in the last 72 hours. Labs in Last 3 months: Lab Results Component Value Date TSH 1.190 08/17/2023 INR 2.0 (H) 01/23/2025 Microbiology- Urine Cx: No results found for: URINECX Blood Cx: Lab Results Component Value Date BLOODCX No growth at 5 days 01/01/2025 Sputum Cx: Lab Results Component Value Date RESPCULT Rare respiratory ila present. 12/30/2024 RESPCULT Many Staphylococcus aureus (A) 12/30/2024 Gram Stain: Lab Results Component Value Date LABGRAM (A) 01/02/2025 Many Polymorphonuclear leukocytes per low power field LABGRAM Many Gram positive cocci (A) 01/02/2025 LABGRAM Moderate Gram positive bacilli (A) 01/02/2025 PNA PCR: Lab Results Component Value Date HUMANMETAPNE Not Detected 11/15/2024 COVID19: No results found for: COVID19 Legionella Ag: Lab Results Component Value Date LEGIONELLAPN Not Detected 11/14/2024 Strep Ag: No results for input(s): STREPPNEUMO in the last 72 hours. Imaging- No new imaging in past 24 hours Assessment and Plan: Principal Problem: Complication of tracheostomy (CMS/HCC) ([facility]) Active Problems: Severe malnutrition (CMS/HCC) ([facility]) GI Bleed, worsened by Warfarin Non-bleeding duodenal ulcer Supratherapeutic INR, resolved Acute on chronic anemia, with blood loss anemia - patient continues to have multiple maroon - bright red colored bowel movements. - s/p 1U FFP transfusion on 01/22/25 - GI following, hoping for colonoscopy today as INR has improved. PLAN: - EGD 01/21 significant for non-bleeding duodenal ulcer - holding warfarin in setting of GIB, INR currently 2 - SAILAJA following, monitor for s/s of bleeding - continue to trend H/H, Transfuse Hb <7 - vWF panel, factor 8 ristocetin assay, and peripheral blood smear pending - Per GI, will start prep for colonoscopy today at 1600. Will change diet to clear liquids. Stage V sacral wound Necrotic L. toes - Wound care following - ID following - General surgery following, recommend wound vac - continue unasyn 3,000 mg BID x 51 doses for total of 6 week course Aortic valve stenosis s/p prosthetic valve replacement Paroxysmal A-fib - TTE 11/24/24 without mechanical valve regurgitation or stenosis - warfarin held in setting of supra-therapeutic INR (goal INR 2-3) - Metoprolol held d/t concern for bleed - continue q12 H/H and PT/INR - PT/INR today at 1500 - if INR falls under 2, will start heparin gtt. To prevent mechanical aortic valve clotting. Will discuss with GI when to stoop heparin drip prior to colonoscopy Chronic hypoxemic respiratory failure - s/p tracheostomy, now removed - saturating appropriately on room air - continue duo-neb TID ESRD on HD MWF Hypotension, chronic - Management per nephro - midodrine 15mg q6h GI Prophylaxis: Holding in setting of adverse drug interaction with PPI and Coumadin DVT Prophylaxis: Contraindicated in setting of GI bleed Disposition: Transfer to [facility] Cosigned by Darryn Higgins MD at 01/23/2025 10:56 AM EDT Associated attestation - Darryn Higgins MD - 01/23/2025 10:56 AM EDT I have personally seen the patient and examined along with the resident. I personally obtained the francis and relevent portions of the history and performed physical exam. I reviewed the chart including MAR, labs, and radiology and agree with the patient's plan of action as discussed with the resident. This note reflects my plan of care as I have edited the note to reflect my findings and my assessment and plan. ROS documentation was reviewed and negative unless otherwise stated in HPI. Chief Complaint: GIB Additional pertinent interval history, ROS, and physical exam findings: Patient seen and examined. Awake, alert, following commands. No acute events. INR improved. Hemoglobin slight downtrend but otherwise stable. Remains off pressors. Assessment and Plan: GIB unclear etiology w/ bleeding worsened by Coumadin Stage V Sacral Wound POA Supratherapeutic INR on Coumadin Acute on Chronic Anemia w/ blood loss anemia Aortic Valve Stenosis status post aortic valve replacement on coumadin Chronic Respiratory Failure with Hypoxia s/p Trach - now removed ESRD on HD Chronic Hypotension Afib on Coumadin Necrotic L toes - INR improved status post FFP. Plan for scope with GI tomorrow. Follow INR if <2 will start heparin without boluses for AVR given stability in hemoglobin and vitals. If starts to bleed will stop pending colonoscopy. - continue midodrine 15mg q 6 hours - Hemoglobin thus far stable, check H/H q 6 hours. Transfuse for Hgb <7. Type and screen if not completed. PT/INR/Zoë as needed. - wound care following for sacral wound - surgery recommending wound vac - breathing stable status post tracheostomy removal. - continue Unasyn for sacral wound x 6 weeks - ID following. Code Status: Full Code Disposition: Remain in ICU for ongoing care Total critical care time caring for this patient with life threatening, unstable organ failure, including direct patient contact, management of life support systems, review of data including imaging and labs, discussions with other team members and physicians is 34 minutes, excluding procedures. Darryn Higgins MD Pulmonary and Critical Care Medicine Attending Pager #[phone] [facility] Respiratory Care Department Progress Note As part of the Respiratory Assessment Program (RAP), the following Respiratory Therapist evaluation has been completed, including a chart review and clinical/physical assessment. Respiratory Therapist RAP Evaluation Guideline Points 0 1 2 3 4 Points Strongly Consider History Factor No Pulmonary conditions Stable Pulmonary condition(s) Surgery or Intervention that may impact Pulmonary system (at risk) Surgery or Intervention that is impacting Pulmonary system Active Exacerbation of Pulmonary Condition 1 Respiratory Pattern Regular, RR= 12-18 RAMOS or Increased RR= 19-24 Irregular, or RR= 25-30 SOB, talk in short sentences, or RR= 31-35 Severe SOB, accessory muscle use, one word answers, or RR>35 0 Aerosol Med(s), High Flow O2 Breath Sounds Clear Diminished in 1 lobe Diminished in <= 2 lobes Adventitious breath sounds Coarse crackles, Wheezes, or Diminished in >2 lobes 4 Aerosol Med(s), Bronchial Hygiene, Hyperinflation Cough & Sputum Strong cough, no secretion retention or production Weak cough, no secretion retention or production Weak cough, w/ production (less often than Q2hr), or secretion retention No cough, w/ secretion retention or production (less often than Q2hr) Significant secretion production (more often than Q2hr) or mucus plug 0 Aerosol Med(s), Bronchial Hygiene, Hyperinflation Level of Activity Ambulatory Ambulatory with Assist Up in chair or edge of bed (dangle) Non-ambulatory, bedridden with active ROM Completely paralyzed or without active ROM 1 Triage 5 0-2 Triage 4 3-5 Triage 3 6-10 Triage 2 11-14 Triage 1 >=15 Total 6 Triage Score = 3 TRIAGE SCORING - SUGGESTED FREQUENCIES Aerosol Therapy Bronchial Hygiene Hyperinflation Triage Score Q4h & PRN 1 Q4hWA (QID) & PRN 2 TID & PRN 3 BID & PRN 4 PRN 5 Therapy(s) Indicated Yes/No Aerosol Medication Yes Hyperinflation No Bronchial Hygiene NO High Flow Oxygen NO RT to enter/modify frequency of treatment order in EMR/EHR to match this RAP evaluation. Based on this RAP evaluation the following therapy is being changed to TID Comments: Thank you for involving [facility] in the care of this patient, [facility] Progress Note Mr. Jun Snyder is a 59-year-old male with a history of end-stage renal disease (ESRD) on a Wednesday/Wednesday/Wednesday hemodialysis (HD) schedule. His ESRD has been complicated by chronic hypotension, for which he is maintained on midodrine 15 mg every 6 hours. He remains on intermittent HD with nephrology following, and no acute dialysis-related complications have been noted during this hospitalization. His chronic renal failure was confirmed on prior imaging showing renal atrophy. Management continues with a focus on volume support, monitoring of electrolytes, and hemodynamic stability, with adjustments made as needed based on his clinical course. BP 113/64 Pulse 93 Temp 36.7 C (98.1 F) Resp 21 Ht 1.778 m (5' 10) Wt 58.9 kg (129 lb 13.6 oz) SpO2 99% BMI 18.63 kg/m Input / Output: 24 HR: Intake/Output Summary (Last 24 hours) at 01/22/2025 1530 Last data filed at 01/22/2025 1507 Gross per 24 hour Intake 1442 ml Output 2055 ml Net -613 ml Physical Exam Alert and oriented x 1 NAD Neck: no JVD CV: RRR Lungs: CTA bilaterally Abd: soft, NT, ND Ext: no lower extremity edema Scheduled medications ampicillin-sulbactam, 3,000 mg, IntraVENous, q12h collagenase, , Topical, Daily ipratropium-albuterol, 3 mL, Nebulization, q8h Lidocaine, 1 patch, Topical, Daily [Held by provider] metoprolol tartrate, 25 mg, Per G Tube, BID midodrine, 15 mg, Per G Tube, q6h mupirocin, 1 Application, Nasal, BID Continuous medications PRN medications PRN medications: acetaminophen, collagenase, dextrose, dextrose, glucagon (rDNA), glucose, melatonin, naloxone, oxyCODONE OR oxyCODONE, prochlorperazine, sodium chloride Results from last 7 days Lab Units 01/22/25 0419 SODIUM mmol/L 132* POTASSIUM mmol/L 4.4 CHLORIDE mmol/L 94* CO2 mmol/L 25 BUN mg/dL 53* CREATININE mg/dL 4.18* CALCIUM mg/dL 9.8 PROTEIN TOTAL g/dL 7.6 BILIRUBIN TOTAL mg/dL 0.9 ALK PHOS U/L 274* ALT U/L 44* AST U/L 51* GLUCOSE mg/dL 70* Results from last 7 days Lab Units 01/22/25 0419 01/21/25 0243 01/20/25 0514 MAGNESIUM mg/dL 2.6 2.5 2.8* Results from last 7 days Lab Units 01/22/25 0419 01/21/25 2348 01/21/25 1452 01/21/25 0908 01/21/25 0243 WBC AUTO 10*3/uL 10.6 -- -- 9.2 10.1 HEMOGLOBIN g/dL 8.0* 7.7* 7.1* 8.0* 8.3* HEMATOCRIT % 25.1* 24.5* 22.4* 25.3* 27.3* PLATELETS 10*3/uL 330 -- -- 353 365 Assessment & Plan: Problem: End-Stage Renal Disease (ESRD) on Hemodialysis Assessment: Patient with known ESRD on a Wednesday/Wednesday/Wednesday (MWF) hemodialysis schedule. Hemodialysis completed today without complications. Labs show ongoing elevated BUN 53 mg/dL and creatinine 4.18 mg/dL, consistent with ESRD. Electrolytes post-HD are relatively stable: sodium 132 mmol/L, potassium 4.4 mmol/L, chloride 94 mmol/L, CO? 25 mmol/L. Chronic hypotension remains a concern; patient is maintained on midodrine 15 mg every 6 hours. No signs of volume overload or uremic symptoms (e.g., encephalopathy, pericarditis) at this time. Output monitoring ongoing -- no Payne catheter, tracking via clinical assessment. Weight today: 58.9 kg (previous documented weight stable). Plan adjusted considering ongoing bleeding risks (rectal bleeding history, held anticoagulation). Plan: Continue hemodialysis MWF schedule. Maintain midodrine 15 mg every 6 hours for blood pressure support. Monitor daily weights, intake/output (I/Os), and clinical volume status. Continue to monitor BUN/Creatinine and electrolyte panel post-HD sessions. No anticoagulation restarted at this time due to recent GI bleeding and supratherapeutic INR. Ensure appropriate vascular access site care. Nephrology to continue routine management and reassess HD prescription as needed based on volume status and labs. Please message me through [employer] chat with any questions or concerns. Wellington Nicole MD 01/22/2025 3:30 PM [facility] [address], [address] [place] [id number] Office: [phone] Images from the original note were not included. [facility] - Infectious Diseases Advanced Practice Provider Progress Note Subjective: Following patient for sacral OM. Notes reviewed. Kortney had EGD 01/21 revealing non-bleeding duodenal ulcer. Patient sacral ulcer found to be bleeding over weekend as well; noted blood clots. He has been evaluated by Gen Surg and no plan for acute surgical intervention. Patient reports sacral wound is sore. Denies fever, chills, CP, SOB, N/V, abdominal pain. No other new exacerbating or alleviating factors. Afebrile, on room air. WBC 10.6. Objective: Vitals: Patient Vitals for the past 24 hrs: BP Temp Temp src Pulse Resp SpO2 01/22/25 1406 120/66 37.1 C (98.7 F) -- -- -- -- 01/22/25 1343 107/64 37 C (98.6 F) -- 96 13 -- 01/22/25 1215 111/60 37.3 C (99.2 F) -- 96 23 99 % 01/22/25 1203 104/67 -- -- 94 12 100 % 01/22/25 1145 (!) 91/44 -- -- 108 12 99 % 01/22/25 1130 114/67 -- -- 98 (!) 11 99 % 01/22/25 1125 111/64 -- -- 111 24 100 % 01/22/25 1120 99/60 -- -- 101 (!) 11 97 % 01/22/25 1115 99/62 -- -- 105 18 96 % 01/22/25 1110 (!) 89/63 -- -- 101 22 96 % 01/22/25 1105 (!) 87/58 -- -- 109 21 96 % 01/22/25 1100 90/57 -- -- 102 14 97 % 01/22/25 1055 103/65 -- -- 101 23 98 % 01/22/25 1050 105/67 -- -- 103 22 99 % 01/22/25 1045 111/66 -- -- 102 15 96 % 01/22/25 1040 114/70 -- -- 102 22 98 % 01/22/25 1035 99/88 -- -- 113 22 98 % 01/22/25 1031 (!) 87/62 -- -- 106 (!) 27 99 % 01/22/25 1030 93/59 -- -- 110 19 99 % 01/22/25 1015 115/66 -- -- 102 22 95 % 01/22/25 1000 117/75 -- -- 104 (!) 27 97 % 01/22/25 0945 124/82 -- -- 102 22 97 % 01/22/25 0930 130/83 -- -- 100 18 99 % 01/22/25 0915 127/80 -- -- 96 20 100 % 01/22/25 0902 128/71 -- -- 97 20 98 % 01/22/25 0900 132/74 -- -- 96 16 98 % 01/22/25 0851 129/77 36.9 C (98.4 F) -- 97 17 99 % 01/22/25 0827 -- -- -- -- -- 97 % 01/22/25 0800 125/69 -- -- 89 14 97 % 01/22/25 0700 118/66 -- -- 89 12 100 % 01/22/25 0500 119/70 -- -- 87 15 100 % 01/22/25 0400 115/73 36.8 C (98.2 F) Temporal 79 19 95 % 01/22/25 0300 104/61 -- -- 76 17 94 % 01/22/25 0200 104/62 -- -- 81 17 94 % 01/22/25 0100 106/63 -- -- 78 14 94 % 01/22/25 0000 112/50 36.6 C (97.8 F) Temporal 84 19 97 % 01/21/25 2343 120/71 -- -- 86 20 99 % 01/21/25 2307 -- -- -- 82 (!) 11 94 % 01/21/25 2300 -- -- -- 82 12 95 % 01/21/25 2200 114/68 -- -- 83 13 94 % 01/21/25 2100 111/64 -- -- 86 (!) 11 95 % 01/21/25 2000 104/62 36.6 C (97.8 F) Temporal 87 21 94 % 01/21/25 1900 109/58 -- -- 89 20 94 % 01/21/25 1800 121/61 -- -- 95 18 100 % 01/21/25 1700 124/72 -- -- 89 21 96 % 01/21/25 1606 -- -- -- 84 16 96 % 01/21/25 1600 101/59 -- -- 81 (!) 9 95 % 01/21/25 1540 -- 37.1 C (98.7 F) Temporal 82 (!) 9 95 % Physical Exam: Physical Exam Vitals and nursing note reviewed. Constitutional: General: He is not in acute distress. Appearance: Normal appearance. He is normal weight. He is not ill-appearing. Comments: NAD laying in bed. Cooperative, responds appropriately. Ill-appearing HENT: Head: Normocephalic and atraumatic. Right Ear: External ear normal. Left Ear: External ear normal. Nose: Nose normal. Mouth/Throat: Mouth: Mucous membranes are moist. Pharynx: Oropharynx is clear. Eyes: Extraocular Movements: Extraocular movements intact. Conjunctiva/sclera: Conjunctivae normal. Pupils: Pupils are equal, round, and reactive to light. Neck: Comments: Recent tracheostomy site healing Cardiovascular: Rate and Rhythm: Normal rate and regular rhythm. Pulses: Normal pulses. Heart sounds: Normal heart sounds. Pulmonary: Effort: Pulmonary effort is normal. Breath sounds: Normal breath sounds. No wheezing, rhonchi or rales. Comments: Breathing unlabored on room air. No wheezes, rales, rhonchi Abdominal: General: Abdomen is flat. Bowel sounds are normal. There is no distension. Palpations: Abdomen is soft. Tenderness: There is no abdominal tenderness. There is no guarding. Musculoskeletal: Right lower leg: No edema. Left lower leg: No edema. Skin: General: Skin is warm and dry. Comments: Sacral wound with pink tissue, large clot L toes 1-4 with dry gangrene LUE AVF Neurological: General: No focal deficit present. Mental Status: He is alert and oriented to person, place, and time. Psychiatric: Mood and Affect: Mood normal. Behavior: Behavior normal. Labs: Recent Labs 01/20/25 0501/21/25 02401/22/259 NA 135* 135* 132* K 4.8 4.3 4.4 CL 98 96* 94* CO2 BUN 91* 46* 53* CREATININE 4.31* 2.99* 4.18* GLUCOSE 68* 60* 70* CALCIUM 9.2 9.9 9.8 PROT -- -- 7.6 BILITOT -- -- 0.9 ALKPHOS -- -- 274* AST -- -- 51* ALT -- -- 44* Recent Labs 01/20/25 0501/20/25 0801 01/21/25 0243 01/21/25 0908 01/21/25 1452 01/21/25 2348 01/22/25418 WBC 10.5 -- 10.1 9.2 -- -- 10.6 HGB 6.6* < > 8.3* 8.0* 7.1* 7.7* 8.0* HCT 21.3* < > 27.3* 25.3* 22.4* 24.5* 25.1* PLT 279 -- 365 353 -- -- 330 LYMPHOPCT 11.6* -- 16.5 -- -- -- 14.1* MONOPCT 10.1 -- 14.3* -- -- -- 14.0* BASOPCT 1.1 -- 1.0 -- -- -- 1.1 NEUTROABS 7.5 -- 6.4 -- -- -- 6.6 < > = values in this interval not displayed. Micro: Previous ([facility]) 01/02- sacral wound cx- E faecalis (Amp-S), skin ila, Clostridium clostrioforme 01/01- blood cx- 2/2 NG 12/30- blood cx- 2/2 NGTD 12/30- sputum cx- MSSA, resp ila 12/25- blood cx- 2/2 negative 12/14- sputum cx- MSSA, resp ila 12/14- MRSA pcr- MSSA 12/11- sputum cx- MSSA, resp ila Previous ([facility]) 11/28- L pleural fluid- negative 11/16- abd fluid eswab- ASE faecalis 11/16- peritoneal cx- C glabrata 11/15- RPP- negative 11/15- sputum cx- resp ila 11/14- BAL pneumonia PCR- negative 11/14- BAL cx- resp ila 11/12- C diff PCR- negative 11/12- GI PCR- negative 11/02- MRSA PCR- MSSA 11/02- RPP- negative 11/01- pneumonia PCR- MSSA, RSV 11/01- BAL cx- MSSA, resp ila 11/01- blood cx- 2/2 negative 10/25- H pylori ag- negative 10/19- BAL cx- resp ila 10/19- BAL pneumonia PCR- coronavirus, RSV 10/16- BAL cx- resp ila 10/11- GI PCR- negative 10/03- blood cx- 2/2 negative 10/03- 4plex- RSV Lines: AVF PIV Radiography/Echo/Other: 01/19 CXR 1. Lingular infiltrate. 2. Prominence of the central pulmonary vasculature consistent with mild congestive heart failure/fluid overload. 3. Overall significant improvement in the aeration of the lungs when compared to the previous study. 01/20 CTA Abd/Pelvis 1. Imaging does not identify the site and/or source of the GI bleed. There is no intraluminal IV contrast appreciated. There are multiple loops of fluid-filled small and large bowel. The rectum is mildly distended with intraluminal fluid, consider diarrhea. 2. There is a large posterior decubitus ulcer which extends to the sacrum and coccyx with locules of air, fluid, and edema, correlate with clinical physical exam. This is new compared to 11/16/2024. 3. Colonic diverticulosis. 4. Renal atrophy. This patient has end-stage renal disease and is receiving dialysis. 5. Cholelithiasis. The gallbladder is decompressed with wall thickening measuring 6-7 mm (differential includes poor distention, systemic process, cholecystitis). Consider nuclear medicine HIDA scan and/or ultrasound. 6. Bilateral small pleural effusions with compressive atelectasis and/or infiltrate. Cardiomegaly. 7. Other: IVC filter. Percutaneous gastrostomy tube. Additional findings, as above. Antimicrobials, Start/End Dates: Anidulafungin: 11/27-11/28 Micafungin: 11/28- 12/10 Linezolid: 12/30-12/31 Pip/tazo: 12/30-01/01 Vancomycin: 12/31- 01/03 Meropenem: 01/01-01/04 Amp-Sulbactam: 01/06- present Impression: Sacral wound infection w osteomyelitis bedside debridement w/ exposed bone (01/02) sacral wound cx: ASEC, Clostridium Cx now with large clots Tracheostomy dislodgement BRBPR Leukocytosis- resolved Recurrent MSSA LRTI- treated Acute hypoxic respiratory failure s/p trach C glabrata, ASEC peritonitis s/p treatment Pneumoperitoneum s/p ex-lap, EGD, & abhishek gastrostomy tube placement (11/16/24) Hx GIB s/p GDA embolization (10/14/24) PEA arrest x2 (10/14/24, 11/01/24) Severe aortic stenosis s/p AVR (23mm [facility] mechanical- 10/12/24) LLE DVT's c/b ishemic L foot s/p IVC filter ESRD on HD via LUE AVF MWF Afib on amiodarone Plan: Following patient for sacral osteomyelitis in which sacral wound debrided to bone on 01/02 at [facility] (Cx with E faecalis and Clostridium). Sacral wound with clots- Gen Surg evaluated and not planning for acute surgical intervention; wound care consulted for wound vac placement. Plan to continue renally-dosed Amp-Sulbactam through 02/13/25 to complete 6 week course. Monitor infectious parameters. Continue wound care. ID will continue to follow. Case and plan discussed with Dr. Starr Based on diagnoses and management, combination of acute and chronic problems, exacerbations and/or acuity, this visit should be considered to be of moderate complexity. Mikala MORAN PA-C [facility] [place] Speech-Language Pathology Spoke with the RN. Patient remains decanulated and doing well on Room Air. Patient is currently NPO for GI. Will defer dysphagia plan of care until patient is cleared to resume TF or a PO diet. Christina Limon MS, CCC/E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 Images from the original note were not included. Department of Internal Medicine Gastroenterology Progress Note SUBJECTIVE: GI following for GI bleed. CTA on 01/20/25 with no identified GI bleeding. Patient evaluated yesterday with large maroon blood on chux as well as melena. EGD performed yesterday with hiatal hernia, intact gastrostomy with patent G tube in gastric body, one non-bleeding superficial duodenal ulcer with no stigmata of bleeing in the duodenal bulb, clip from previous noted. No bleeding. Recommend PPI daily. ICU team discontinued PPI- suspicion of drug interaction causing in INR. Yesterday afternoon patient sacral wound dressing removed without active bleeding noted. Wound care has been consulted, surgery has signed off. Patient INR supratherapeutic and being held at this time. Hgb stable at 8.0. Per RN patient with large volume BRBPR prior to my evaluation. Patient himself denies any abdominal pain except his chronic upper abdominal pain since surgery. He has not had any vomiting. TF being held, NPO as well. Medications Scheduled Meds: Current Facility-Administered Medications: acetaminophen (Tylenol) tablet 1,000 mg, 1,000 mg, Oral, q8h PRN, Steve Lassiter MD, 1,000 mg at 01/19/25 1540 ampicillin-sulbactam (Unasyn) 3,000 mg in sodium chloride 0.9 % 100 mL IVPB (Add-Reynolds), 3,000 mg, IntraVENous, q12h, Steve Lassiter MD, Stopped at 01/22/25 0523 collagenase 250 UNIT/GM ointment, , Topical, PRN, Steve Lassiter MD, Given at 01/21/25 1339 collagenase 250 UNIT/GM ointment, , Topical, Daily, Steve Lassiter MD, Given at 01/21/25 0857 dextrose 5 % infusion, 100 mL/hr, IntraVENous, PRN, Minor Collier MD, Last Rate: 100 mL/hr at 01/21/25 0636, 100 mL/hr at 01/21/25 0636 dextrose 50 % solution 12.5 g, 12.5 g, IntraVENous, PRN, Minor Collier MD, 12.5 g at 01/21/25 0616 glucagon (human recombinant) injection 1 mg, 1 mg, IntraMUSCular, PRN, Minor Collier MD glucose oral gel 15 g, 15 g, Oral, PRN, Minor Collier MD ipratropium-albuterol (Duo-Neb) 0.5-2.5 mg/3 mL nebulizer solution 3 mL, 3 mL, Nebulization, q8h, Steve Lassiter MD, 3 mL at 01/21/25 2307 ketamine (Ketalar) injection 100 mg, 100 mg, IntraVENous, Once, Bipin Maldonado MD Lidocaine 4 % patch 1 patch, 1 patch, Topical, Daily, Steve Lassiter MD, 1 patch at 01/21/25 0854 melatonin tablet 5 mg, 5 mg, Per G Tube, Nightly PRN, Steve Lassiter MD [Held by provider] metoprolol tartrate (Lopressor) tablet 25 mg, 25 mg, Per G Tube, BID, Steve Lassiter MD, 25 mg at 01/19/25 0916 midodrine (Proamatine) tablet 15 mg, 15 mg, Per G Tube, q6h, Steve Lassiter MD, 15 mg at 01/22/25 0130 mupirocin (Bactroban) 2 % ointment 1 Application, 1 Application, Nasal, BID, Steve Lassiter MD, 1 Application at 01/19/25 2100 naloxone (Narcan) injection 0.4 mg, 0.4 mg, IntraVENous, q5 min PRN, Steve Lassiter MD oxyCODONE (Roxicodone) immediate release tablet 2.5 mg, 2.5 mg, Oral, q6h PRN, 2.5 mg at 01/20/25 2206 OR oxyCODONE (Roxicodone) immediate release tablet 5 mg, 5 mg, Oral, q4h PRN, Steve Lassiter MD, 5 mg at 01/21/25 2358 prochlorperazine (Compazine) injection 5 mg, 5 mg, IntraVENous, q6h PRN, Sangeeta Reyes DO [Held by provider] warfarin (Coumadin) tablet 2 mg, 2 mg, Oral, Daily, Steve Lassiter MD OBJECTIVE VITALS: BP 119/70 Pulse 87 Temp 36.8 C (98.2 F) (Temporal) Resp 15 Ht 5' 10 (1.778 m) Wt 129 lb 13.6 oz (58.9 kg) SpO2 100% BMI 18.63 kg/m Average, Min, and Max for last24 hours Vitals: TEMPERATURE: Temp Av.8 C (98.2 F) Min: 36.6 C (97.8 F) Max: 37.1 C (98.7 F) RESPIRATIONS RANGE: Resp Av.4 Min: 9 Max: 21 PULSE RANGE: Pulse Av.3 Min: 76 Max: 95 BLOOD PRESSURE RANGE: Systolic (24hrs), Av , Min:101 , Max:136 ; Diastolic (24hrs), Av, Min:50, Max:75 PULSE OXIMETRY RANGE:SpO2 Av.1 % Min: 93 % Max: 100 % I/O last 3 completed shifts: In: 1286 (21.8 mL/kg) [I.V.:826 (14 mL/kg); NG/GT:460] Out: 0 (0 mL/kg) Weight: 58.9 kg Constitutional: No acute distress. Looks chronically ill, cachectic. Eyes: Pupils are equal and round; Conjunctiva are not injected; Sclera are non-icteric. ENT: Ears/nose without external abnormalities. Oral mucosa is pink and semi moist. Respiratory: Clear to auscultation bilaterally without any added sounds. Effort is normal Heart: Regular, Normal S1 and S2. No murmur; No added sounds. Abdomen: Normal BS, soft, non-tender, non-distended; no hepatomegaly. Extremities/Skin: Skin warm to touch and well perfused. Musculoskeletal: Head - normocephalic. Neck - supple Psychiatric: AAO x 3, answers appropriately, normal mood, normal affect. Non-focal. Data Recent blood work, radiologic study and endoscopic study were reviewed with the patient. CBC: Recent Labs 01/21/25 0243 01/21/25 0908 01/21/25 1452 01/21/25 2348 01/22/25 0419 WBC 10.1 9.2 -- -- 10.6 RBC 3.07* 2.89* -- -- 2.89* HGB 8.3* 8.0* 7.1* 7.7* 8.0* HCT 27.3* 25.3* 22.4* 24.5* 25.1* MCV 88.9 87.5 -- -- 86.9 MCH 27.0 27.7 -- -- 27.7 MCHC 30.4* 31.6 -- -- 31.9 RDW 18.6* 18.6* -- -- 18.6* PLT 365 353 -- -- 330 MPV 8.7* 9.1 -- -- 8.8* CMP: Recent Labs 01/20/25 0514 01/21/25 0243 01/22/25 0419 NA 135* 135* 132* K 4.8 4.3 4.4 CL 98 96* 94* CO2 BUN 91* 46* 53* CREATININE 4.31* 2.99* 4.18* GLUCOSE 68* 60* 70* CALCIUM 9.2 9.9 9.8 PROT -- -- 7.6 BILITOT -- -- 0.9 ALKPHOS -- -- 274* AST -- -- 51* ALT -- -- 44* PT/INR: Recent Labs 01/21/25 1452 01/21/25 2348 INR 7.9* 8.1* IR Embolization 10/14/2024 IMPRESSION: Angiography of the celiac and superior mesenteric artery vasculature demonstrates no active extravasation. Of note, branches of the gastroduodenal artery approached previously placed endoscopic clip. This is likely representing hemorrhagic source. Technically successful and uneventful embolization of the gastroduodenal artery without opacification of related branches. CTA angiogram with and without IV contrast 01/20/25 FINDINGS: Heart: The heart is enlarged. Lung bases: Bilateral small pleural effusions are present, right greater than left, with compressive atelectasis and/or infiltrate. Osseous structures: There is no acute osseous process. There is narrowing of both hips. Liver: There is diffuse fatty infiltration of the liver. Gallbladder/Biliary tree: Multiple gallstones are present within a decompressed and contracted gallbladder with wall thickening measuring 6-7 mm (differential includes poor distention, systemic process, cholecystitis). There is no significant biliary ductal distention. Spleen: Normal. Adrenals: Normal. Pancreas: Normal. Kidneys/Bladder: The kidneys are significantly atrophied with cortical thinning. There is no hydronephrosis. This patient has end-stage renal disease. The bladder contour is normal. Prostate: The prostate gland is not enlarged. Peritoneal Cavity/Retroperitoneum: There is no lymphadenopathy. Clips are present within the mesentery adjacent to the stomach and duodenum in the right upper quadrant, unchanged. Soft tissues: There is a soft tissue ulcer with locules of air, edema, and fluid which extends to the sacrum and coccyx and measures a distance of 11.3 cm on sagittal exam and this is new compared to 11/16/2024. GI Tract: A percutaneous gastrostomy tube is present anteriorly. Intraluminal fluid is present within multiple loops of small and large bowel including the rectum. There is no appreciable intraluminal IV contrast to identify site and/or source of GI bleed as the intraluminal contents appear similar to precontrast exam. There is no bowel obstruction. No appreciable free air. The appendix is not identified with certainty. Multiple colonic diverticuli are present. Vasculature: Atherosclerotic calcifications are present along the aorta and branches. There is ectasia of the infrarenal aorta. An IVC filter is present. IMPRESSION: 1. Imaging does not identify the site and/or source of the GI bleed. There is no intraluminal IV contrast appreciated. There are multiple loops of fluid-filled small and large bowel. The rectum is mildly distended with intraluminal fluid, consider diarrhea. 2. There is a large posterior decubitus ulcer which extends to the sacrum and coccyx with locules of air, fluid, and edema, correlate with clinical physical exam. This is new compared to 11/16/2024. 3. Colonic diverticulosis. 4. Renal atrophy. This patient has end-stage renal disease and is receiving dialysis. 5. Cholelithiasis. The gallbladder is decompressed with wall thickening measuring 6-7 mm (differential includes poor distention, systemic process, cholecystitis). Consider nuclear medicine HIDA scan and/or ultrasound. 6. Bilateral small pleural effusions with compressive atelectasis and/or infiltrate. Cardiomegaly. 7. Other: IVC filter. Percutaneous gastrostomy tube. Additional findings, as above. Endoscopic Review EGD 10/14/2024 EGD 10/24/24 EGD 11/14/24 EGD 01/21/25 ASSESSMENT AND PLAN Melena- EGD 01/21/25 with non bleeding duodenal ulcer BRBPR- ? Rectal bleeding vs. Bleeding from sacral wound, CTA negative for active bleeding Acute on chronic anemia- multifactorial History of UGI Bleed- s/p EGD 10/14/24 with clot noted in D1, no intervention, IR GDA embolization 10/14/24 A. Fib s/p aortic valve replacement- 10/12/24, Coumadin, last dose suspected 01/18/[address] [facility] Stage V sacral wound Necrotic left toes Supratherapeutic INR Acute Right occipital ICH- 10/22/24 ESRD on HD A. Fib- Coumadin, last dose 01/18/25 - Hgb stable - Patient with BRBPR this AM per RN, ? Some from sacral wound, unable to evaluate as patient getting CRRT - In setting of supratherapeutic INR amount of bleeding is not unusual - Given INR supra-therapeutic would not recommend colonoscopy at this time, CTA was negative, EGD with non bleeding ulcer, would reassess need once INR corrected and wound has been addressed - Recommend PPI daily - Management of sacral wound per wound care - Continue to monitor for overt signs of GI bleeding - Continue medical management and supportive care per primary team - Continue to monitor H/H and transfuse per primary team - Antibiotics per primary team - GI will sign off at this time, once INR corrected if still having significant rectal bleeding can reassess need for colonoscopy The GI/Liver consult service will sign off. Please call if there are any questions, concerns or change of patient's GI condition. Thanks. ATTENDING NOTE: Pt is being followed by inpatient GI service for: GIB Above note has also been edited to reflect my additional findings and recommendations Family present at bedside: none Brief Exam Gen: +ill, NAD HEENT: anicteric sclera Chest: normal respiratory effort Abd: benign Ext: no c/c/e Neuro: nonfocal Labs/Studies reviewed in Epic ASSESSMENT/PLAN: GIB Chronic Anticoagulation -h/o Coumadin H/O EGD - duodenal ulcer - nonbleeding, superficial PEG tube in place Anemia Renal insufficiency --Continue supportive care in ICU --Serial H/H, transfuse as appropriate --Monitor for signs of ongoing bleeding when INR is in therapeutic range (INR last 24 hours 5.5 - 8.0) --Above note has been edited to reflect updated assessment/plan/recommendations --GI inpatient service will follow peripherally and sign off at this time, please call if new issues/questions arise. CHADD DAVIS MD Images from the original note were not included. Department of General Surgery Daily Progress Note ADMIT DATE: 01/19/2025 TODAY'S DATE: 01/22/2025 HPI: Jun Snyder is a 59 y.o. male with significant past history of acute respiratory failure and trach dependence, HTN, a-fib, occipital ICH, acute renal failure (HD), s/p trach and PEG and Dx lap in October 2024 who presents after tracheostomy dislodgement. Surgery was consulted for evaluation of bleeding sacral wound. Patient denies pain related to the sacral wound at time of evaluation. Patient unsure how long wound has been present. Per chart review, first documented image of the sacral pressure injury was on 11/28/24. SUBJECTIVE: No acute events overnight. Has not had recent debridement of wound per patient Interval history: 01/21- Consult to ACS for evaluation of bleeding sacral wound 01/22- Wound care for Vac and ACS to sign off OBJECTIVE: VITALS: BP 119/70 Pulse 87 Temp 36.8 C (98.2 F) (Temporal) Resp 15 Ht 1.778 m (5' 10) Wt 58.9 kg (129 lb 13.6 oz) SpO2 100% BMI 18.63 kg/m INTAKE/OUTPUT: Intake/Output Summary (Last 24 hours) at 01/22/2025 0733 Last data filed at 01/22/2025 0537 Gross per 24 hour Intake 1036 ml Output 0 ml Net 1036 ml I/O last 3 completed shifts: In: 1286 (21.8 mL/kg) [I.V.:826 (14 mL/kg); NG/GT:460] Out: 0 (0 mL/kg) Weight: 58.9 kg No intake/output data recorded. PHYSICAL EXAM: CONSTITUTIONAL: awake, alert, cooperative, no apparent distress HEENT: No scleral icterus, EOMI NECK: Supple, no thyromegaly LUNGS: No increased work of breathing, good air exchange CARDIOVASCULAR: Well perfused, RRR ABDOMEN: Soft, non-distended, non-tender, maroon diarrhea during exam GENITAL/URINARY: Not examined MUSCULOSKELETAL: There is no redness, warmth, or swelling of the joints. Full range of motion noted. NEUROLOGIC: Awake, alert, oriented to name, place and time. SKIN: Large sacral wound with significant amount of clotted blood, no obvious site of bleeding. normal skin color, texture, no redness, warmth, or swelling LABS Results from last 7 days Lab Units 01/22/2541801/21/25 2348 01/21/25 1452 01/21/25 0908 01/21/25242 WBC AUTO 10*3/uL 10.6 -- -- 9.2 10.1 HEMOGLOBIN g/dL 8.0* 7.7* 7.1* 8.0* 8.3* HEMATOCRIT % 25.1* 24.5* 22.4* 25.3* 27.3* PLATELETS 10*3/uL 330 -- -- 353 365 Results from last 7 days Lab Units 01/22/2541801/21/2524201/20/25 0514 SODIUM mmol/L 132* 135* 135* POTASSIUM mmol/L 4.4 4.3 4.8 CHLORIDE mmol/L 94* 96* 98 CO2 mmol/L BUN mg/dL 53* 46* 91* CREATININE mg/dL 4.18* 2.99* 4.31* GLUCOSE mg/dL 70* 60* 68* CALCIUM mg/dL 9.8 9.9 9.2 Results from last 7 days Lab Units 01/22/25418 ALK PHOS U/L 274* BILIRUBIN TOTAL mg/dL 0.9 BILIRUBIN DIRECT mg/dL 0.7* PROTEIN TOTAL g/dL 7.6 ALT U/L 44* AST U/L 51* No results found for: LIPASE Results from last 7 days Lab Units 01/22/2541801/21/2524201/20/25 0514 MAGNESIUM mg/dL 2.6 2.5 2.8* Results from last 7 days Lab Units 01/21/25 2348 01/21/25 1452 01/19/25 0652 INR 8.1* 7.9* 2.7* Current Inpatient Medications Scheduled Meds:ampicillin-sulbactam, 3,000 mg, IntraVENous, q12h collagenase, , Topical, Daily ipratropium-albuterol, 3 mL, Nebulization, q8h ketamine, 100 mg, IntraVENous, Once Lidocaine, 1 patch, Topical, Daily [Held by provider] metoprolol tartrate, 25 mg, Per G Tube, BID midodrine, 15 mg, Per G Tube, q6h mupirocin, 1 Application, Nasal, BID [Held by provider] warfarin, 2 mg, Oral, Daily Continuous Infusions: PRN Meds:PRN medications: acetaminophen, collagenase, dextrose, dextrose, glucagon (rDNA), glucose, melatonin, naloxone, oxyCODONE OR oxyCODONE, prochlorperazine ASSESSMENT AND PLAN: Jun Snyder is a 59 y.o. male that presents with large sacral wound with blood clots, no active bleeding. - No acute surgical intervention - Consult wound care for wound vac placement today, Change MWF - Once Vac placed ACS to sign off - Rest of care per primary - will be discussed with DENIA Sutton 01/22/25 7:33 AM Cosigned by Ivett Buckley MD at 01/23/2025 10:55 AM EDT Associated attestation - Ivett Buckley MD - 01/23/2025 10:55 AM EDT ATTENDING ADDENDUM Patient Active Problem List Diagnosis Anemia Paroxysmal A-fib (CMS/HCC) (HCC) HTN (hypertension) ESRD on hemodialysis (CMS/HCC) (HCC) 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 Diverticulosis Nonrheumatic aortic valve stenosis Calcification of abdominal aorta (HCC) Missed vaccination due to patient refusal Tobacco abuse Alcohol use disorder in remission Atrial flutter, unspecified type (HCC) RSV (acute bronchiolitis due to respiratory syncytial virus) Aortic stenosis Upper GI bleed S/P AVR Acute hypoxic respiratory failure (HCC) Acute encephalopathy Pneumoperitoneum Gastric ulceration Severe malnutrition (CMS/HCC) (HCC) Pleural effusion Peritonitis due to fungus (HCC) History of abdominal surgery Leg DVT (deep venous thromboembolism), acute, left (HCC) 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, 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) 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HCC) Leukocytosis Decubitus ulcer of sacral region, unstageable (HCC) Pneumonia of both lungs due to methicillin susceptible Staphylococcus aureus (MSSA) (HCC) Sacral osteomyelitis (CMS/HCC) (HCC) Acute respiratory failure with hypoxia ([facility]) [J96.01] Tracheostomy care ([facility]) [Z43.0] 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[facility]) rn long term care (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 Complication of tracheostomy (CMS/HCC) ([facility]) I personally supervised the resident in the evaluation and development of a treatment plan for this patient on the same day of service as above. I personally discussed the review of systems and interviewed the patient along with performing a physical examination. I reviewed the recent events, imaging, labs, vital signs. In addition, I discussed the patient's condition and treatment options with him/her when possible. I have also reviewed and agree with the past medical, family, and social history unless otherwise noted. All of the patient's questions were answered and family updated when appropriate and possible. 59M with a recent prolonged hospitalization in September 2024 for decompensated HF 2/2 aortic stenosis requiring AVR, that was complicated by UGIB, renal failure requiring CRRT and multiple PEA arrests and ultimately underwent trach/PEG/laparoscopic Abhishek gastrostomy on 11/14 & 11/16. He as recently decannulated (trach accidentally became dislodged but patient has done well without it) however he is now being evaluated for acute anemia (Hb 6.6) with concerns from blood loss from sacral wound in the setting of supratherapeutic INR. Surgery is consulted for evaluation of the wound. I evaluated the patient on 01/22 Hb stable at 8.0, PLT 330, INR 5.5 (from 8.1) BUN 53, C 4.18, uremic platelet dysfunction likely not helping bleeding risk GI consulted for EGD given patient's history of UGIB / duodenal ulcers The sacral wound is oozing, no identifiable vessels, just coagulopathic bleeding Continue direct pressure to wound, can use Quikclot if necessary for hemostasis until coagulopathy corrected No acute surgical intervention Surgery will continue to follow Level of Medical Decision Making: risk of morbidity from additional diagnostic testing or treatment due to chronic sacral wound with bleeding issues []High [x]Moderate []Low Complexity: Chronic illness with mild to moderate exacerbation, progression, or side effect of tx (MOD) Risk: Decision regarding minor surgery with identified patient or procedure risk factors (MOD) Personally Reviewed/Independently interpreted patient's: [x]Epic notes []Radiology studies [x]Labs []EKG []Ordering tests []Other Discussed/ With: [x]Patient/Family [x]RN []Consultants []SW/TCC []Other I spent total time of 35 minutes reviewing previous notes, test results, and face to face with Jun Snyder discussing the diagnosis and importance of compliance with the treatment plan as well as documenting on the day of the visit. Ivett Buckley MD Division of Trauma Department of Surgery [facility] ICU Progress Note Name: Jun Snyder : 1965(59 y.o.) Date: 01/22/25 Team: MICU Attending: Dr. Higgins Subjective: Hospital Summary: Mr Snyder is a 59 year old male who presented to [facility] 01/19 after inadvertent removal of his tracheostomy. He was transferred to [facility] ICU for surgical evaluation. On arrival he was maintaining appropriate O2 saturations on room air and the decision was made to leave the tracheostomy out. Able to be transferred out of ICU later that day. On 01/20 critical care and GI were consulted due to rectal bleeding. At that time patient determined to be stable to remain on GMF. On the morning of 01/21, GI recommended ICU transfer for EGD which revealed non-bleeding duodenal ulcer. At that time patient's sacral wound was noted to be bleeding. Have been trending INR's and H&H, currently stable. Interval Events: - Overnight patient's INR and Hb improved. Night team consented patient for blood transfusion just in case it will become necessary. Gave 2.5 mg Vit K, D-dimer, fibrinogen, vWF and F8 pending for workup of Heyde. Night team also Dc'd PPI due to suspicion of drug interaction causing increase in INR and Hb. - had 5 beat run of SVT overnight This morning, patient is comfortable, VSS. AAO x 3, though endorses confusion. Patient denies pain, DAWSON, chest pain, SOB. Abdominal pain. PRN's Oxycodone 5 mg at 2358 on 01/21 Scheduled Meds:ampicillin-sulbactam, 3,000 mg, IntraVENous, q12h collagenase, , Topical, Daily ipratropium-albuterol, 3 mL, Nebulization, q8h ketamine, 100 mg, IntraVENous, Once Lidocaine, 1 patch, Topical, Daily [Held by provider] metoprolol tartrate, 25 mg, Per G Tube, BID midodrine, 15 mg, Per G Tube, q6h mupirocin, 1 Application, Nasal, BID [Held by provider] warfarin, 2 mg, Oral, Daily Continuous Infusions: Objective: Last Vitals: BP MAP 119/70 (01/22/25 0500) 83 (01/22/25 0500) Arterial BP MAP Temp 36.8 C (98.2 F) (01/22/25 0400) Pulse 87 (01/22/25 0500) Resp 15 (01/22/25 0500) SpO2 100 % (01/22/25 0500) Weight 58.9 kg (129 lb 13.6 oz) (01/19/25 0657) BMI Body mass index is 18.63 kg/m . I/O: 01/21 0700 - 01/22 0659 In: 1036 [I.V.:726] Out: 0 Ventilator: Oxygen Delivery: O2 Flow Rate (L/min): 2 L/min Invasive Lines / Tubes / Drains: Peripheral IV 01/19/25 Right Forearm (Active) Number of days: 2 Peripheral IV 01/21/25 Right Antecubital (Active) Number of days: 0 Enterostomy Gastric 20 Fr. LUQ (Active) Number of days: 68 Central Line Indication: Hemodialysis Payne Indications: NA - patient does not have a Payne catheter Restraints: NA - patient is not restrained. Wounds: Wound/Incision 11/13/24 Pressure Injury Sacrum (Active) Date First Assessed/Time First Assessed: 11/13/24 1200 Present on Original Admission: No Primary Wound Type: Pressure Injury Location: Sacrum Pressure Injury Stage: Stage 3 Wound/Incision 11/15/24 Traumatic Arm Anterior;Left;Upper (Active) Date First Assessed/Time First Assessed: 11/15/24 0800 Primary Wound Type: Traumatic Location: Arm Wound Location Orientation: Anterior;Left;Upper Wound Description (Comments): Fistula Wound/Incision 11/15/24 Other (comment) Toe - third Anterior;Left (Active) Date First Assessed/Time First Assessed: 11/15/24 2213 Present on Original Admission: No Primary Wound Type: (c) Other (comment) Location: (c) Toe - third Wound Location Orientation: Anterior;Left Wound Description (Comments): Black 3rd and 4th ... Wound/Incision 11/19/24 Traumatic Achilles Left (Active) Date First Assessed/Time First Assessed: 11/19/24 1409 Primary Wound Type: Traumatic Location: Achilles Wound Location Orientation: Left Wound/Incision 11/19/24 Traumatic Heel Left (Active) Date First Assessed/Time First Assessed: 11/19/24 1410 Primary Wound Type: Traumatic Location: Heel Wound Location Orientation: Left Wound/Incision 01/19/25 Pressure Injury Head Posterior;Medial (Active) Date First Assessed/Time First Assessed: 01/19/25 0510 Present on Original Admission: Yes Primary Wound Type: Pressure Injury Location: Head Wound Location Orientation: Posterior;Medial Wound Description (Comments): scab, redness periwound Constitutional: General Appearance []WDWN []Obese []Cachectic [x]Thin [x]Ill Eyes: Inspection of Pupils/Irises Pupils round and react: [x]Yes []No Sclera: []Icteric [x]Non-Icteric Inspection of Conjunctiva/Lids Conjunctiva: []Injected [x]Non-Injected Lids: [x]Intact []Lesion Present ENT/Mouth: External Inspection of ears/nose [] Normal [] Scar/Lesion/Mass Inspection of teeth/lips/gums Dentition: [][place] Teeth []Dentures Lips/Gums: []Intact []Lesion Present Mucosa: [x][place] []Moist [x]Dry Neck: External Appearance Overall Appearance: [x]Normal []Lesion/Mass/Crepitus Present Trachea midline: [x]Yes []No Thyroid []Normal []Enlarged []Tender []Mass []Absent Respiratory: Respiratory effort []Labored [x]Non-Labored [] Mechanically-Ventilated Auscultation [x]Clear []Crackles []Wheezes [][place]hon[place] Cardiovascular: Auscultation: aortic mechanical valve systolic and diastolic click Rate: [x]Regular []Irregular []Tachycardia []Bradycardia Rhythm: [x]Regular []Irregular Murmur: [x]Present []Absent Extremities Peripheral Edema: []Present [x]Absent Varicosities: []Present []Absent Gastrointestinal: Abdomen Palpation: [x]Soft []Firm []Tender []Non-Tender []Distended [x]Non-distended Mass: []Present []Absent Bowel Sounds: [x]Present []Absent Hernia: []Present []Absent Liver/Spleen: []Hepatosplenomegaly []Organomegaly Absent Musculoskeletal: Inspection of Digits and Nails Cyanosis: []Present [x]Absent Clubbing: []Present [x]Absent Ischemia: []Present []Absent Infection: []Present []Absent Extremities GUAN Equally: Except ([]RUE []RLE []LUE []LLE) Strength/Tone: Intact and Normal ([]RUE []RLE []LUE []LLE) Skin: Inspection []Normal []Rash []Lesion []Ulcer Palpation [x]Warm []Cool []Dry []Clammy []Nodules []Induration []Skin-tightening Cap-Refill: [x] <3 sec [] >3 seconds (delayed) Neurologic: GCS EYE: 4 - Opens spontaneously GCS MOTOR: 6 - Obeys commands for movement GCS VERBAL: 5 - Oriented to person, place, time Total GCS: 15 [] Sensation grossly intact Psych: Mental Status Alert: [x]Yes [] No Oriented: []x0 []X1 []X2 [x]x3 Mood/Affect []Normal []Flat []Agitated []Depressed []Anxious [x]Calm []Sedated []NAD [facility] within last 24 hours- BMP: Recent Labs 01/20/25 0514 01/21/25 0243 01/22/25 418 NA 135* 135* 132* K 4.8 4.3 4.4 CL 98 96* 94* CO2 BUN 91* 46* 53* CREATININE 4.31* 2.99* 4.18* CALCIUM 9.2 9.9 9.8 MG 2.8* 2.5 2.6 PHOS 6.1* 5.3* 6.8* LFTs: Recent Labs 01/22/25418 AST 51* ALT 44* PROT 7.6 ALBUMIN 2.2* BILITOT 0.9 ALKPHOS 274* Glucose: Recent Labs 01/20/25 0514 01/21/25 0243 01/21/25 0246 01/21/25 0600 01/21/25 0634 01/21/25 0654 01/21/25 0736 01/21/25 1115 01/21/25 1859 01/22/25 0005 01/22/2541801/22/25 0554 GLUCOSE 68* 60* -- -- -- -- -- -- -- -- 70* -- POCGLU -- -- < > 67* 129* 107* 92 92 86 82 -- 81 < > = values in this interval not displayed. Procal: No results for input(s): PROCAL in the last 72 hours. CBC: Recent Labs 01/21/25 0243 01/21/25 0908 01/21/25145101/21/25234701/22/25418 WBC 10.1 9.2 -- -- 10.6 HGB 8.3* 8.0* 7.1* 7.7* 8.0* HCT 27.3* 25.3* 22.4* 24.5* 25.1* PLT 365 353 -- -- 330 MCV 88.9 87.5 -- -- 86.9 RDW 18.6* 18.6* -- -- 18.6* ABGs: No results for input(s): PHART, SKJ6GPQ, PO2ART, WUO6GBF, SO2ART, C2XVTSRL in the last 72 hours. Lactic Acid: No results for input(s): LACTATE in the last 72 hours. INR: Recent Labs 01/19/25 0652 01/21/25 1452 01/21/252347 INR 2.7* 7.9* 8.1* Cardiac Injury Profile: No results for input(s): CKTOTAL, CKMB, TROPONINI in the last 72 hours. Labs in Last 3 months: Lab Results Component Value Date TSH 1.190 08/17/2023 INR 8.1 (HH) 01/21/2025 Microbiology- Urine Cx: No results found for: URINECX Blood Cx: Lab Results Component Value Date BLOODCX No growth at 5 days 01/01/2025 Sputum Cx: Lab Results Component Value Date RESPCULT Rare respiratory ila present. 12/30/2024 RESPCULT Many Staphylococcus aureus (A) 12/30/2024 Gram Stain: Lab Results Component Value Date LABGRAM (A) 01/02/2025 Many Polymorphonuclear leukocytes per low power field LABGRAM Many Gram positive cocci (A) 01/02/2025 LABGRAM Moderate Gram positive bacilli (A) 01/02/2025 PNA PCR: Lab Results Component Value Date HUMANMETAPNE Not Detected 11/15/2024 COVID19: No results found for: COVID19 Legionella Ag: Lab Results Component Value Date LEGIONELLAPN Not Detected 11/14/2024 Strep Ag: No results for input(s): STREPPNEUMO in the last 72 hours. Imaging- === 01/19/25 === CT ABDOMEN PELVIS ANGIOGRAM W AND/OR WO IV CONTRAST - Impression - 1. Imaging does not identify the site and/or source of the GI bleed. There is no intraluminal IV contrast appreciated. There are multiple loops of fluid-filled small and large bowel. The rectum is mildly distended with intraluminal fluid, consider diarrhea. 2. There is a large posterior decubitus ulcer which extends to the sacrum and coccyx with locules of air, fluid, and edema, correlate with clinical physical exam. This is new compared to 11/16/2024. 3. Colonic diverticulosis. 4. Renal atrophy. This patient has end-stage renal disease and is receiving dialysis. 5. Cholelithiasis. The gallbladder is decompressed with wall thickening measuring 6-7 mm (differential includes poor distention, systemic process, cholecystitis). Consider nuclear medicine HIDA scan and/or ultrasound. 6. Bilateral small pleural effusions with compressive atelectasis and/or infiltrate. Cardiomegaly. 7. Other: IVC filter. Percutaneous gastrostomy tube. Additional findings, as above. Report Dictated on Electronically Signed By: Karly Parker MD Electronically Signed Date/Time: 01/20/2025 7:02 PM EDT Assessment and Plan: Principal Problem: Complication of tracheostomy (CMS/HCC) (HCC) Active Problems: Severe malnutrition (CMS/HCC) (HCC) Rectal bleeding, concern for GIB Non-bleeding duodenal ulcer Supratherapeutic INR Coagulopathy Acute on chronic anemia, concern for blood loss anemia - Ddx for coagulopathy includes Heyde, GI bleed, supra therapeutic warfarin therapy PLAN: - EGD 01/21 significant for non-bleeding duodenal ulcer - holding warfarin in setting of concern for GIB, INR therapeutic - SAILAJA following - monitor for s/s of bleeding - continue to trend H/H - elevated PT/INR, D-dimer, fibrinogen, APTT, HFT WNL - peripheral blood smear pending - repeat PT/INR s/p vitamin K - Zoë panel pending Stage V sacral wound Necrotic L. toes - Wound care following - ID following - General surgery following, recommend wound vac - continue unasyn 3,000 mg BID x 51 doses for total of 6 week course Aortic valve stenosis s/p prosthetic valve replacement Paroxysmal A-fib - TTE 11/24/24 without mechanical valve regurgitation or stenosis - warfarin held in setting of supra-therapeutic INR - Metoprolol held d/t concern for bleed Chronic hypoxemic respiratory failure - s/p tracheostomy, now removed - saturating appropriately on room air - continue duo-neb TID ESRD on HD MWF Hypotension, chronic - Management per nephro - midodrine 15mg q6h GI Prophylaxis: currently held d/t concern for drug interaction worsening clinical symptoms DVT Prophylaxis: SCDs Disposition: Remain in ICU Status Cosigned by Darryn Higgins MD at 01/22/2025 4:06 PM EDT Associated attestation - Darryn Higgins MD - 01/22/2025 4:06 PM EDT I have personally seen the patient and examined along with the resident. I personally obtained the francis and relevent portions of the history and performed physical exam. I reviewed the chart including MAR, labs, and radiology and agree with the patient's plan of action as discussed with the resident. This note reflects my plan of care as I have edited the note to reflect my findings and my assessment and plan. ROS documentation was reviewed and negative unless otherwise stated in HPI. Chief Complaint: Supratherapeutic INR, Sacral wound bleeding Additional pertinent interval history, ROS, and physical exam findings: Patient seen and examined. Awake, alert, answering questions. Nursing with notable bright red blood per rectum. INR remains supratherapeutic, received Vitamin K yesterday. Hemodynamically remains off pressors. Undergoing dialysis. Non-labored breathing. Assessment and Plan: GIB unclear etiology w/ bleeding worsened by Coumadin Stage V Sacral Wound POA Supratherapeutic INR on Coumadin Acute on Chronic Anemia w/ blood loss anemia Aortic Valve Stenosis status post aortic valve replacement on coumadin Chronic Respiratory Failure with Hypoxia s/p Trach - now removed ESRD on HD Chronic Hypotension Afib on Coumadin Necrotic L toes - patient with continued BRBPR, INR remains supratherapeutic, reversal with Vitamin K. Recheck INR and ZOË given concern for ongoing bleeding. - Holding coumadin given INR, goal once stabilized 2-3. - GI following to decide on colonoscopy vs further monitoring - holding off until INR improves. - continue midodrine 15mg q 6 hours - Hemoglobin thus far stable, check H/H q 6 hours. Transfuse for Hgb <7. Type and screen if not completed. PT/INR/Zoë as needed. - wound care following for sacral wound - surgery recommending wound vac - breathing stable status post tracheostomy removal. - continue Unasyn for sacral wound x 6 weeks - ID following. Code Status: Full Code Disposition: Remain in ICU for ongoing care Total critical care time caring for this patient with life threatening, unstable organ failure, including direct patient contact, management of life support systems, review of data including imaging and labs, discussions with other team members and physicians is 35 minutes, excluding procedures. Darryn Higgins MD Pulmonary and Critical Care Medicine Attending Pager #[phone] [facility] Progress Note SUBJECTIVE: Jun Snyder is a 59 y.o. Follow up for ESRD Medications Scheduled Meds:ampicillin-sulbactam, 3,000 mg, IntraVENous, q12h collagenase, , Topical, Daily ipratropium-albuterol, 3 mL, Nebulization, q8h ketamine, 100 mg, IntraVENous, Once Lidocaine, 1 patch, Topical, Daily [Held by provider] metoprolol tartrate, 25 mg, Per G Tube, BID midodrine, 15 mg, Per G Tube, q6h mupirocin, 1 Application, Nasal, BID pantoprazole (ProtoNix) 40 mg in sodium chloride (PF) 0.9 % 10 mL injection, 40 mg, IntraVENous, BID Phenylephrine HCl (Pressors), , , [Held by provider] warfarin, 2 mg, Oral, Daily Continuous Infusions: Prn Meds : PRN medications: acetaminophen, collagenase, dextrose, dextrose, glucagon (rDNA), glucose, melatonin, naloxone, ondansetron ODT OR ondansetron, oxyCODONE OR oxyCODONE, Phenylephrine HCl (Pressors) Home Meds: Current Facility-Administered Medications: acetaminophen (Tylenol) tablet 1,000 mg, 1,000 mg, Oral, q8h PRN, Steve Lassiter MD, 1,000 mg at 01/19/25 1540 ampicillin-sulbactam (Unasyn) 3,000 mg in sodium chloride 0.9 % 100 mL IVPB (Add-Reynolds), 3,000 mg, IntraVENous, q12h, Steve Lassiter MD, Stopped at 01/21/25 0441 collagenase 250 UNIT/GM ointment, , Topical, PRN, Steve Lassiter MD, Given at 01/21/25 1339 collagenase 250 UNIT/GM ointment, , Topical, Daily, Steve Lassiter MD, Given at 01/21/25 0857 dextrose 5 % infusion, 100 mL/hr, IntraVENous, PRN, Minor Collier MD, Last Rate: 100 mL/hr at 01/21/25 0636, 100 mL/hr at 01/21/25 0636 dextrose 50 % solution 12.5 g, 12.5 g, IntraVENous, PRN, Minor Collier MD, 12.5 g at 01/21/25 0616 glucagon (human recombinant) injection 1 mg, 1 mg, IntraMUSCular, PRN, Minor Collier MD glucose oral gel 15 g, 15 g, Oral, PRN, Minor Collier MD ipratropium-albuterol (Duo-Neb) 0.5-2.5 mg/3 mL nebulizer solution 3 mL, 3 mL, Nebulization, q8h, Steve Lassiter MD, 3 mL at 01/21/25 1605 ketamine (Ketalar) injection 100 mg, 100 mg, IntraVENous, Once, Bipin Maldonado MD Lidocaine 4 % patch 1 patch, 1 patch, Topical, Daily, Steve Lassiter MD, 1 patch at 01/21/25 0854 melatonin tablet 5 mg, 5 mg, Per G Tube, Nightly PRN, Steve Lassiter MD [Held by provider] metoprolol tartrate (Lopressor) tablet 25 mg, 25 mg, Per G Tube, BID, Steve Lassiter MD, 25 mg at 01/19/25 0916 midodrine (Proamatine) tablet 15 mg, 15 mg, Per G Tube, q6h, Steve Lassiter MD, 15 mg at 01/21/25 1441 mupirocin (Bactroban) 2 % ointment 1 Application, 1 Application, Nasal, BID, Steve Lassiter MD, 1 Application at 01/19/25 2100 naloxone (Narcan) injection 0.4 mg, 0.4 mg, IntraVENous, q5 min PRN, Steve Lassiter MD ondansetron ODT (Zofran-ODT) disintegrating tablet 4 mg, 4 mg, Oral, q8h PRN OR ondansetron (Zofran) injection 4 mg, 4 mg, IntraVENous, q6h PRN, Steve Lassiter MD oxyCODONE (Roxicodone) immediate release tablet 2.5 mg, 2.5 mg, Oral, q6h PRN, 2.5 mg at 01/20/25 2206 OR oxyCODONE (Roxicodone) immediate release tablet 5 mg, 5 mg, Oral, q4h PRN, Steve Lassiter MD, 5 mg at 01/21/25 1441 pantoprazole (ProtoNix) 40 mg in sodium chloride (PF) 0.9 % 10 mL injection, 40 mg, IntraVENous, BID, [place], Phenylephrine HCl (Pressors) 1 MG/10ML injection - Pyxis ADS Override Pull, , , , [Held by provider] warfarin (Coumadin) tablet 2 mg, 2 mg, Oral, Daily, Steve Lassiter MD OBJECTIVE Physical BP 111/61 Pulse 84 Temp 36.9 C (98.4 F) (Temporal) Resp 16 Ht 1.778 m (5' 10) Wt 58.9 kg (129 lb 13.6 oz) SpO2 96% BMI 18.63 kg/m 24HR INTAKE/OUTPUT: Intake/Output Summary (Last 24 hours) at 01/21/2025 1654 Last data filed at 01/21/2025 1440 Gross per 24 hour Intake 310 ml Output -- Net 310 ml HEENT: Atraumatic, normocephalic, no throat congestion, moist mucosa. Eyes: Pupils equal, round and reactive to light, EOMI. Neck: No JVD, no thyromegaly, no lymphadenopathy. Chest: Bilateral vesicular breath sounds, no rales or wheezes. Cardiac: S1 S2 RR, no murmurs, gallops or rubs, JVP not raised. Abdomen: Soft, non-tender, no masses or organomegaly, BS audible. SKIN: No rashes, good skin turgor. Data Last 3 CMP: Recent Labs 01/19/25 0342 01/20/25 0514 01/21/25 0243 NA 135* 135* 135* K 4.4 4.8 4.3 CL 95* 98 96* CO2 25 22 24 BUN 80* 91* 46* CREATININE 3.50* 4.31* 2.99* CALCIUM 10.6* 9.2 9.9 Last 3 CBC: Recent Labs 01/20/25 0514 01/20/25 0801 01/21/25 0243 01/21/25 0908 01/21/25 1452 WBC 10.5 -- 10.1 9.2 -- RBC 2.41* -- 3.07* 2.89* -- HGB 6.6* < > 8.3* 8.0* 7.1* HCT 21.3* < > 27.3* 25.3* 22.4* MCV 88.4 -- 88.9 87.5 -- MCH 27.4 -- 27.0 27.7 -- MCHC 31.0 -- 30.4* 31.6 -- RDW 18.3* -- 18.6* 18.6* -- PLT 279 -- 365 353 -- MPV 9.0 -- 8.7* 9.1 -- < > = values in this interval not displayed. ASSESSMENT Patient Active Problem List Diagnosis Date Noted Severe malnutrition ([facility]) ([facility]) 01/19/2025 Complication of tracheostomy ([facility]) ([facility]) 01/19/2025 rn long term care (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 01/12/2025 Acute respiratory failure with hypoxia ([facility]) [J96.01] 01/08/2025 Tracheostomy care ([facility]) [Z43.0] 01/08/2025 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[facility]) 01/08/2025 Sacral osteomyelitis ([facility]) ([facility]) 01/03/2025 Pneumonia of both lungs due to methicillin susceptible Staphylococcus aureus (MSSA) ([facility]) 01/01/2025 Leukocytosis 12/30/2024 Decubitus ulcer of sacral region, unstageable ([facility]) 12/30/2024 Peritonitis due to fungus ([facility]) 11/30/2024 History of abdominal surgery 11/30/2024 Leg DVT (deep venous thromboembolism), acute, left ([facility]) 11/30/2024 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, 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 of skin ([facility]) 11/30/2024 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[facility]) 11/30/2024 Pleural effusion 11/28/2024 Gastric ulceration 2024 Atrial flutter, unspecified type ([facility]) 10/03/2024 RSV (acute bronchiolitis due to respiratory syncytial virus) 10/03/2024 Diverticulosis 10/08/2023 Nonrheumatic aortic valve stenosis 10/08/2023 Calcification of abdominal aorta ([facility]) 10/08/2023 Missed vaccination due to patient refusal 10/08/2023 Tobacco abuse 10/08/2023 Alcohol use disorder in remission 10/08/2023 Paroxysmal A-fib ([facility]) ([facility]) 08/18/2023 HTN (hypertension) 12/01/2022 ESRD on hemodialysis ([facility]) ([facility]) 10/26/2019 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 10/26/2019 Aortic stenosis 10/03/2024 Upper GI bleed 10/03/2024 S/P AVR 10/03/2024 Acute hypoxic respiratory failure (HCC) 10/03/2024 Acute encephalopathy 10/03/2024 Pneumoperitoneum 10/03/2024 Anemia 12/30/2021 ASSESSMENT/PLAN: ESRD. HD MWF schedule Anemia. PRBC if Hb less than 7 GI bleed. Gastroenterology following Cindy Patel MD 01/21/2025 4:54 PM Family Communication Number Called: [phone] Name of Designated Family Edger Machine Helper: Moar son I spoke with the individual listed above Family Edger Machine Helper Updated on the Following: - Updated Omar that his father had moved to ICU for bedside scope - All questions answered and Omar appreciated the update Images from the original note were not included. Department of Internal Medicine Gastroenterology Progress Note SUBJECTIVE: GI following for GI bleed, acute blood loss anemia. Upon entering room, pt with large volume maroon blood on chux. Further assesment noting that patient has blood coming from decub wound. Rectal exam with melena also noted. Patient denies N/V, abdominal pain at this time. VSS. ICU consulted and at bedside. Plan for EGD today for melena. Patient agreeable. Medications Scheduled Meds: Current Facility-Administered Medications: acetaminophen (Tylenol) tablet 1,000 mg, 1,000 mg, Oral, q8h PRN, Steve Lassiter MD, 1,000 mg at 01/19/25 1540 ampicillin-sulbactam (Unasyn) 3,000 mg in sodium chloride 0.9 % 100 mL IVPB (Add-Reynolds), 3,000 mg, IntraVENous, q12h, Steve Lassiter MD, Stopped at 01/21/25 0441 collagenase 250 UNIT/GM ointment, , Topical, PRN, Steve Lassiter MD collagenase 250 UNIT/GM ointment, , Topical, Daily, Steve Lassiter MD, 1 Application at 01/19/25 1540 dextrose 5 % infusion, 100 mL/hr, IntraVENous, PRN, Minor Collier MD, Last Rate: 100 mL/hr at 01/21/25 0636, 100 mL/hr at 01/21/25 0636 dextrose 50 % solution 12.5 g, 12.5 g, IntraVENous, PRN, Minor Collier MD, 12.5 g at 01/21/25 0616 glucagon (human recombinant) injection 1 mg, 1 mg, IntraMUSCular, PRN, Minor Collier MD glucose oral gel 15 g, 15 g, Oral, PRN, Minor Collier MD ipratropium-albuterol (Duo-Neb) 0.5-2.5 mg/3 mL nebulizer solution 3 mL, 3 mL, Nebulization, q8h, Steve Lassiter MD, 3 mL at 01/20/25 2333 Lidocaine 4 % patch 1 patch, 1 patch, Topical, Daily, Steve Lassiter MD, 1 patch at 01/19/25 0916 melatonin tablet 5 mg, 5 mg, Per G Tube, Nightly PRN, Steve Lassiter MD [Held by provider] metoprolol tartrate (Lopressor) tablet 25 mg, 25 mg, Per G Tube, BID, Steve Lassiter MD, 25 mg at 01/19/25 0916 midodrine (Proamatine) tablet 15 mg, 15 mg, Per G Tube, q6h, Steve Lassiter MD, 15 mg at 01/21/25 0234 mupirocin (Bactroban) 2 % ointment 1 Application, 1 Application, Nasal, BID, Steve Lassiter MD, 1 Application at 01/19/25 2100 naloxone (Narcan) injection 0.4 mg, 0.4 mg, IntraVENous, q5 min PRN, Steve Lassiter MD ondansetron ODT (Zofran-ODT) disintegrating tablet 4 mg, 4 mg, Oral, q8h PRN OR ondansetron (Zofran) injection 4 mg, 4 mg, IntraVENous, q6h PRN, Steve Lassiter MD oxyCODONE (Roxicodone) immediate release tablet 2.5 mg, 2.5 mg, Oral, q6h PRN, 2.5 mg at 01/20/25 2206 OR oxyCODONE (Roxicodone) immediate release tablet 5 mg, 5 mg, Oral, q4h PRN, Steve Lassiter MD, 5 mg at 01/19/25 1150 pantoprazole (ProtoNix) 80 mg in sodium chloride 0.9 % 100 mL (0.8 mg/mL) infusion, 8 mg/hr, IntraVENous, Continuous, Inés Cotto PA-C, Last Rate: 10 mL/hr at 01/21/25 031, 8 mg/hr at 01/21/25 0318 [Held by provider] warfarin (Coumadin) tablet 2 mg, 2 mg, Oral, Daily, Steve Lassiter MD OBJECTIVE VITALS: BP 106/55 Pulse 87 Temp 36.5 C (97.7 F) (Temporal) Resp 16 Ht 5' 10 (1.778 m) Wt 129 lb 13.6 oz (58.9 kg) SpO2 95% BMI 18.63 kg/m Average, Min, and Max for last24 hours Vitals: TEMPERATURE: Temp Av.1 C (97 F) Min: 35.9 C (96.7 F) Max: 36.5 C (97.7 F) RESPIRATIONS RANGE: Resp Av.4 Min: 16 Max: 24 PULSE RANGE: Pulse Av.7 Min: 85 Max: 118 BLOOD PRESSURE RANGE: Systolic (24hrs), Av , Min:87 , Max:106 ; Diastolic (24hrs), Av, Min:30, Max:60 PULSE OXIMETRY RANGE:SpO2 Av.1 % Min: 94 % Max: 100 % I/O last 3 completed shifts: In: 550 (9.3 mL/kg) [I.V.:400 (6.8 mL/kg); NG/GT:150] Out: - (0 mL/kg) Weight: 58.9 kg Constitutional: Resting in bed comfortable on side. Chronically ill appearing. Head/Eyes: Pupils are equal and round; Conjunctiva are not injected; Sclera are non-icteric. ENT: Ears/nose without external abnormalities. Oral mucosa is pink and semi moist. Neck: No JVD. No neck masses or lesion. No thyromegaly. Respiratory: Clear to auscultation bilaterally without any added sounds. Effort is normal. Heart: Regular rate and rhythm. No added sounds. Abdomen: Hypoactive BS, soft, non-tender, non-distended; no hepatomegaly. Maroon blood present in chux under patient. Extremities/Skin: Ischemic left foot. Musculoskeletal: AROM in all extremities. Psychiatric: AAO x 3, answers appropriately, normal mood, flat affect. Non-focal. Data Recent blood work, radiologic study and endoscopic study were reviewed with the patient. CBC: Recent Labs 01/19/25 0652 01/20/25 0514 01/20/25 0801 01/20/25 1302 01/20/25 1829 01/21/25 0243 WBC 10.9* 10.5 -- -- -- 10.1 RBC 3.44* 2.41* -- -- -- 3.07* HGB 9.4* 6.6* < > 8.2* 8.3* 8.3* HCT 30.2* 21.3* < > 25.7* 25.8* 27.3* MCV 87.8 88.4 -- -- -- 88.9 MCH 27.3 27.4 -- -- -- 27.0 MCHC 31.1 31.0 -- -- -- 30.4* RDW 18.6* 18.3* -- -- -- 18.6* PLT 416 279 -- -- -- 365 MPV 9.4 9.0 -- -- -- 8.7* < > = values in this interval not displayed. CMP: Recent Labs 01/19/25 0342 01/20/25 0514 01/21/25 0243 NA 135* 135* 135* K 4.4 4.8 4.3 CL 95* 98 96* CO2 25 22 24 BUN 80* 91* 46* CREATININE 3.50* 4.31* 2.99* GLUCOSE 85 68* 60* CALCIUM 10.6* 9.2 9.9 PT/INR: Recent Labs 01/19/25 0652 INR 2.7* Radiologic Review Narrative & Impression Patient Name: JUN SNYDER : 1965 Exam Date/Time: 01/20/2025 17:02 Procedure: CT ABDOMEN PELVIS ANGIOGRAM W AND/OR WO IV CONTRAST Ordering Provider: DENSON ADITYA Reason For Exam: Bright red blood per rectum Gender: Male Age: 59 years History: Bright red blood per rectum Exam: CT ABDOMEN PELVIS ANGIOGRAM W AND/OR WO IV CONTRAST Indication: Bright red blood per rectum Scan Parameters: Multiple axial CT images were obtained of the abdomen and pelvis. Coronal and sagittal reconstructions were reviewed as well. ALARA protocol. Dose reduction was employed with automated exposure control. Additional reconstructed MIP images provided with 3-D postprocessing. Contrast: Imaging was obtained before and after the administration of IV contrast with 75 mL [id number]-370 IV contrast; no oral contrast (patient is end-stage renal disease and is on dialysis and will receive dialysis after contrast administration as dictated by the nephrology). Comparison: 11/16/2024 CT abdomen and pelvis with IV contrast FINDINGS: Heart: The heart is enlarged. Lung bases: Bilateral small pleural effusions are present, right greater than left, with compressive atelectasis and/or infiltrate. Osseous structures: There is no acute osseous process. There is narrowing of both hips. Liver: There is diffuse fatty infiltration of the liver. Gallbladder/Biliary tree: Multiple gallstones are present within a decompressed and contracted gallbladder with wall thickening measuring 6-7 mm (differential includes poor distention, systemic process, cholecystitis). There is no significant biliary ductal distention. Spleen: Normal. Adrenals: Normal. Pancreas: Normal. Kidneys/Bladder: The kidneys are significantly atrophied with cortical thinning. There is no hydronephrosis. This patient has end-stage renal disease. The bladder contour is normal. Prostate: The prostate gland is not enlarged. Peritoneal Cavity/Retroperitoneum: There is no lymphadenopathy. Clips are present within the mesentery adjacent to the stomach and duodenum in the right upper quadrant, unchanged. Soft tissues: There is a soft tissue ulcer with locules of air, edema, and fluid which extends to the sacrum and coccyx and measures a distance of 11.3 cm on sagittal exam and this is new compared to 11/16/2024. GI Tract: A percutaneous gastrostomy tube is present anteriorly. Intraluminal fluid is present within multiple loops of small and large bowel including the rectum. There is no appreciable intraluminal IV contrast to identify site and/or source of GI bleed as the intraluminal contents appear similar to precontrast exam. There is no bowel obstruction. No appreciable free air. The appendix is not identified with certainty. Multiple colonic diverticuli are present. Vasculature: Atherosclerotic calcifications are present along the aorta and branches. There is ectasia of the infrarenal aorta. An IVC filter is present. IMPRESSION: 1. Imaging does not identify the site and/or source of the GI bleed. There is no intraluminal IV contrast appreciated. There are multiple loops of fluid-filled small and large bowel. The rectum is mildly distended with intraluminal fluid, consider diarrhea. 2. There is a large posterior decubitus ulcer which extends to the sacrum and coccyx with locules of air, fluid, and edema, correlate with clinical physical exam. This is new compared to 11/16/2024. 3. Colonic diverticulosis. 4. Renal atrophy. This patient has end-stage renal disease and is receiving dialysis. 5. Cholelithiasis. The gallbladder is decompressed with wall thickening measuring 6-7 mm (differential includes poor distention, systemic process, cholecystitis). Consider nuclear medicine HIDA scan and/or ultrasound. 6. Bilateral small pleural effusions with compressive atelectasis and/or infiltrate. Cardiomegaly. 7. Other: IVC filter. Percutaneous gastrostomy tube. Additional findings, as above. IR Embolization 10/14/2024 IMPRESSION: Angiography of the celiac and superior mesenteric artery vasculature demonstrates no active extravasation. Of note, branches of the gastroduodenal artery approached previously placed endoscopic clip. This is likely representing hemorrhagic source. Technically successful and uneventful embolization of the gastroduodenal artery without opacification of related branches. Endoscopic Review EGD 10/14/2024 EGD 10/24/24 EGD 11/14/24 ASSESSMENT AND PLAN Melena Acute on chronic anemia History of UGI Bleed- s/p EGD 10/14/24 with clot noted in D1, no intervention, IR GDA embolization 10/14/24 A. Fib s/p aortic valve replacement- 10/12/24, Coumadin, last dose suspected 01/18/[address] [facility] Acute Right occipital ICH- 10/22/24 ESRD on HD - large volume blood on chux pad during evaluation from rectum and wound - Plan for EGD today; pt agreeable - Maintain NPO - Recommend ICU - Recommend surgery evaluation for large decub wound on coccyx - Continue medical management and supportive care per primary team - Continue to monitor H/H and transfuse per primary team - Continue Protonix drip - GI to follow Cosigned by Eldon Alba MD at 01/21/2025 10:06 AM EDT Associated attestation - Eldon Alba MD - 01/21/2025 10:06 AM EDT Attending Supervising Physician s Attestation Statement I have personally performed and participated in all the above services (including HPI and PE). I have reviewed the case with Advance Practice Provider (ARMIN)/ resident / student, and agreed with the ARMIN's / resident / student assessment and plan as above. I have following additions or modifications: I did substantive portion of medical decision making. Seen at [facility] for bleeding. Unclear if wound or GI tract is source. On exam he is in no distress. Will perform EGD to rule out UGI bleeding given significant Hx of upper GI bleeding. ICU was personally consulted and patient moved to ICU for EGD If EGD negative, consult surgery/ wound care to address bleeding from wound. He is anticoagulated as well. Risks & benefits of the endoscopic procedure(s) and MAC /GA sedation were personally explained to patient / family along with alternatives to the procedure in detail including radiological and surgical options. The risks of the endoscopic procedure include but are not limited to risk from anesthesia, respiratory failure, infection, bleeding, perforation, pancreatitis with its sequelae , damage to the adjacent organs, missed lesions and need for further procedure, surgery or interventional radiological intervention, from procedure or complications. We made a shared decision to proceed with planned procedure. Parth VASQUEZ Gastroenterology [facility] Progress Note SUBJECTIVE: Jun Snyder is a 59 y.o. Follow up for ESRD Medications Scheduled Meds:ampicillin-sulbactam, 3,000 mg, IntraVENous, q12h collagenase, , Topical, Daily ipratropium-albuterol, 3 mL, Nebulization, q8h Lidocaine, 1 patch, Topical, Daily [Held by provider] metoprolol tartrate, 25 mg, Per G Tube, BID midodrine, 15 mg, Per G Tube, q6h mupirocin, 1 Application, Nasal, BID [Held by provider] warfarin, 2 mg, Oral, Daily Continuous Infusions:pantoprazole (ProtoNix) 80 mg in sodium chloride 0.9 % 100 mL (0.8 mg/mL) infusion, 8 mg/hr, Last Rate: 8 mg/hr (01/20/25 1331) Prn Meds : PRN medications: acetaminophen, collagenase, melatonin, naloxone, ondansetron ODT OR ondansetron, oxyCODONE OR oxyCODONE Home Meds: Current Facility-Administered Medications: acetaminophen (Tylenol) tablet 1,000 mg, 1,000 mg, Oral, q8h PRN, Steve Lassiter MD, 1,000 mg at 01/19/25 1540 ampicillin-sulbactam (Unasyn) 3,000 mg in sodium chloride 0.9 % 100 mL IVPB (Add-Reynolds), 3,000 mg, IntraVENous, q12h, Steve Lassiter MD, Last Rate: 200 mL/hr at 01/20/25 1743, 3,000 mg at 01/20/25 1743 collagenase 250 UNIT/GM ointment, , Topical, PRN, Steve Lassiter MD collagenase 250 UNIT/GM ointment, , Topical, Daily, Steve Lassiter MD, 1 Application at 01/19/25 1540 ipratropium-albuterol (Duo-Neb) 0.5-2.5 mg/3 mL nebulizer solution 3 mL, 3 mL, Nebulization, q8h, Steve Lassiter MD, 3 mL at 01/20/25 1611 Lidocaine 4 % patch 1 patch, 1 patch, Topical, Daily, Steve Lassiter MD, 1 patch at 01/19/25 0916 melatonin tablet 5 mg, 5 mg, Per G Tube, Nightly PRN, Steve Lassiter MD [Held by provider] metoprolol tartrate (Lopressor) tablet 25 mg, 25 mg, Per G Tube, BID, Steve Lassiter MD, 25 mg at 01/19/25 0916 midodrine (Proamatine) tablet 15 mg, 15 mg, Per G Tube, q6h, Steve Lassiter MD, 15 mg at 01/20/25 1743 mupirocin (Bactroban) 2 % ointment 1 Application, 1 Application, Nasal, BID, Steve Lassiter MD, 1 Application at 01/19/25 2100 naloxone (Narcan) injection 0.4 mg, 0.4 mg, IntraVENous, q5 min PRN, Steve Lassiter MD ondansetron ODT (Zofran-ODT) disintegrating tablet 4 mg, 4 mg, Oral, q8h PRN OR ondansetron (Zofran) injection 4 mg, 4 mg, IntraVENous, q6h PRN, Steve Lassiter MD oxyCODONE (Roxicodone) immediate release tablet 2.5 mg, 2.5 mg, Oral, q6h PRN OR oxyCODONE (Roxicodone) immediate release tablet 5 mg, 5 mg, Oral, q4h PRN, Steve Lassiter MD, 5 mg at 01/19/25 1150 pantoprazole (ProtoNix) 80 mg in sodium chloride 0.9 % 100 mL (0.8 mg/mL) infusion, 8 mg/hr, IntraVENous, Continuous, Inés Cotto PA-C, Last Rate: 10 mL/hr at 01/20/25 1331, 8 mg/hr at 01/20/25 1331 [Held by provider] warfarin (Coumadin) tablet 2 mg, 2 mg, Oral, Daily, Steve Lassiter MD OBJECTIVE Physical BP 96/55 (BP Location: Right arm, Patient Position: Lying) Pulse 91 Temp 36.1 C (97 F) (Temporal) Resp 24 Ht 1.778 m (5' 10) Wt 58.9 kg (129 lb 13.6 oz) SpO2 100% BMI 18.63 kg/m 24HR INTAKE/OUTPUT: Intake/Output Summary (Last 24 hours) at 01/20/2025 1752 Last data filed at 01/20/2025 1321 Gross per 24 hour Intake 300 ml Output 0 ml Net 300 ml HEENT: Atraumatic, normocephalic, no throat congestion, moist mucosa. Eyes: Pupils equal, round and reactive to light, EOMI. Neck: No JVD, no thyromegaly, no lymphadenopathy. Chest: Bilateral vesicular breath sounds, no rales or wheezes. Cardiac: S1 S2 RR, no murmurs, gallops or rubs, JVP not raised. Abdomen: Soft, non-tender, no masses or organomegaly, BS audible. SKIN: No rashes, good skin turgor. Data Last 3 CMP: Recent Labs 01/19/25 0342 01/20/25 0514 NA 135* 135* K 4.4 4.8 CL 95* 98 CO2 25 22 BUN 80* 91* CREATININE 3.50* 4.31* CALCIUM 10.6* 9.2 Last 3 CBC: Recent Labs 01/19/25 0342 01/19/25 0652 01/20/25 0514 01/20/25 0801 01/20/25 1302 WBC 11.6* 10.9* 10.5 -- -- RBC 3.33* 3.44* 2.41* -- -- HGB 9.1* 9.4* 6.6* 8.2* 8.2* HCT 29.1* 30.2* 21.3* 25.8* 25.7* MCV 87.4 87.8 88.4 -- -- MCH 27.3 27.3 27.4 -- -- MCHC 31.3 31.1 31.0 -- -- RDW 18.5* 18.6* 18.3* -- -- PLT 404 416 279 -- -- MPV 9.2 9.4 9.0 -- -- ASSESSMENT Patient Active Problem List Diagnosis Date Noted Severe malnutrition ([facility]) ([facility]) 01/19/2025 Complication of tracheostomy ([facility]) ([facility]) 01/19/2025 rn long term care (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 01/12/2025 Acute respiratory failure with hypoxia ([facility]) [J96.01] 01/08/2025 Tracheostomy care ([facility]) [Z43.0] 01/08/2025 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[facility]) 01/08/2025 Sacral osteomyelitis ([facility]) ([facility]) 01/03/2025 Pneumonia of both lungs due to methicillin susceptible Staphylococcus aureus (MSSA) ([facility]) 01/01/2025 Leukocytosis 12/30/2024 Decubitus ulcer of sacral region, unstageable ([facility]) 12/30/2024 Peritonitis due to fungus ([facility]) 11/30/2024 History of abdominal surgery 11/30/2024 Leg DVT (deep venous thromboembolism), acute, left ([facility]) 11/30/2024 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, 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 of skin ([facility]) 11/30/2024 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[facility]) 11/30/2024 Pleural effusion 11/28/2024 Gastric ulceration 2024 Atrial flutter, unspecified type ([facility]) 10/03/2024 RSV (acute bronchiolitis due to respiratory syncytial virus) 10/03/2024 Diverticulosis 10/08/2023 Nonrheumatic aortic valve stenosis 10/08/2023 Calcification of abdominal aorta ([facility]) 10/08/2023 Missed vaccination due to patient refusal 10/08/2023 Tobacco abuse 10/08/2023 Alcohol use disorder in remission 10/08/2023 Paroxysmal A-fib ([facility] [facility]) ([facility]) 08/18/2023 HTN (hypertension) 12/01/2022 ESRD on hemodialysis ([facility] ([facility]) 10/26/2019 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 10/26/2019 Aortic stenosis 10/03/2024 Upper GI bleed 10/03/2024 S/P AVR 10/03/2024 Acute hypoxic respiratory failure ([facility]) 10/03/2024 Acute encephalopathy 10/03/2024 Pneumoperitoneum 10/03/2024 Anemia 12/30/2021 ASSESSMENT/PLAN: ESRD. HD MWF schedule. HD today. See orders Anemia. PRBC if Hb less than 7 Later in the day dialysis had to be discontinued a little early due to GI bleed and other events. Will reassess tomorrow Cindy Patel MD 01/20/2025 5:52 PM Images from the original note were not included. OCCUPATIONAL THERAPY [facility] Initial Evaluation Name/MRN: Jair Snyder ([id number]) Evaluation Date: 01/20/2025 Date of : 1965 Admission Date: 01/19/2025 2:13 AM Age: 59 y.o. Room/Bed: [facility] A Discharge Recommendation: Jail Facility Other: DME TBD Assessment IMPRESSION: Pt presents with noted deficits for OT eval. Pt tolerated OT eval fair, requires Max A for bed mobility, Mod-CGA for EOB sitting balance. Pt noted with decreased safety and insight, perseverative on transferring to and asking for a big chair, despite decreased sitting balance and safety concerns addressed by therapist. Pt unable to progress to further functional transfer at this time, as activity unsafe. Pt is functioning below baseline and will continue to benefit from acute OT during hospitalization to progress towards PLOF and independence. Pt is recommended for SNF for planned discharge. Admitting Diagnosis: Complication of tracheostomy ([facility]) ([facility]) Performance Deficits /Impairments: Decreased Functional Mobility, Decreased ADL status, Decreased Safety Awareness, Decreased Endurance, Decreased Balance, Decreased High Level IADLs, and Decreased Cognition Prognosis: Fair Decision Making: Medium Complexity Subjective Pt presents supine in bed, agreeable and eager to participate in therapy, states I want to see what I can do. Okay to see per RN. Pain: Pt denies any current pain. Past Medical History: Past Medical History: Diagnosis Date Acute renal failure (ARF) ([facility]) 10/19/2019 Anemia 12/30/2021 Calcification of abdominal aorta ([facility]) 10/08/202309/[address] abd Diverticulosis 10/08/2023 ESRD on hemodialysis ([facility] ([facility]) 10/26/2019 Hemodialysis patient ([facility] ([facility]) HTN (hypertension) 12/01/2022 Hypertension IgA nephropathy 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 10/26/2019 Missed vaccination due to patient refusal 10/08/2023 Has a number of non-scientific based beliefs which interfere with his understanding and acceptance of the medical benefit of vaccination. Nonrheumatic aortic valve stenosis 10/08/2023 Paroxysmal A-fib ([facility]) ([facility]) 08/18/2023 Tobacco abuse 10/08/2023 Past Surgical History: Past Surgical History: Procedure Laterality Date APPENDECTOMY CARDIAC CATHETERIZATION N/A 10/09/2024 Performed by Bob Watson MD at [facility] Cardiac Cath/EP Lab CARDIAC CATHETERIZATION Bilateral 11/01/2024 Performed by Bob Watson MD at [facility] Cardiac Cath/EP Lab CARDIAC CATHETERIZATION N/A 11/01/2024 Performed by Bob Watson MD at [facility] Cardiac Cath/EP Lab FISTULAGRAM (HISTORICAL) Left 09/15/2021 LEFT UPPER ARM HX AV FISTULA CREATION IR EMBOLIZATION 10/14/2024 IR EMBOLIZATION 10/14/2024 [facility] SPECIAL PROCEDURES IR FISTULAGRAM 08/07/2022 IR FISTULAGRAM 08/07/2022 [facility] IR IMAGING TONSILLECTOMY (HISTORICAL) Admission Diagnosis: Patient Active Problem List Diagnosis Date Noted Severe malnutrition ([facility]) ([facility]) 01/19/2025 Complication of tracheostomy ([facility] ([facility]) 01/19/2025 rn long term care (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 01/12/2025 Acute respiratory failure with hypoxia ([facility]) [J96.01] 01/08/2025 Tracheostomy care ([facility]) [Z43.0] 01/08/2025 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[facility]) 01/08/2025 Sacral osteomyelitis ([facility] ([facility]) 01/03/2025 Pneumonia of both lungs due to methicillin susceptible Staphylococcus aureus (MSSA) ([facility]) 01/01/2025 Leukocytosis 12/30/2024 Decubitus ulcer of sacral region, unstageable ([facility]) 12/30/2024 Peritonitis due to fungus ([facility]) 11/30/2024 History of abdominal surgery 11/30/2024 Leg DVT (deep venous thromboembolism), acute, left ([facility]) 11/30/2024 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, 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 of skin ([facility]) 11/30/2024 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[facility]) 11/30/2024 Pleural effusion 11/28/2024 Gastric ulceration 2024 Atrial flutter, unspecified type ([facility]) 10/03/2024 RSV (acute bronchiolitis due to respiratory syncytial virus) 10/03/2024 Diverticulosis 10/08/2023 Nonrheumatic aortic valve stenosis 10/08/2023 Calcification of abdominal aorta ([facility]) 10/08/2023 Missed vaccination due to patient refusal 10/08/2023 Tobacco abuse 10/08/2023 Alcohol use disorder in remission 10/08/2023 Paroxysmal A-fib ([facility] ([facility]) 08/18/2023 HTN (hypertension) 12/01/2022 ESRD on hemodialysis ([facility] ([facility]) 10/26/2019 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 10/26/2019 Aortic stenosis 10/03/2024 Upper GI bleed 10/03/2024 S/P AVR 10/03/2024 Acute hypoxic respiratory failure ([facility]) 10/03/2024 Acute encephalopathy 10/03/2024 Pneumoperitoneum 10/03/2024 Anemia 12/30/2021 Medical Precautions: Contact Proper PPE donned/doffed in accordance with facility standards. Fall Risk: Roque Fall Risk Score: 50 (Medium Risk) Roque Fall Risk Score: 50 (High Risk) Precautions/Restrictions: Lines/Drains/Airways: tele, PIV, iHD fistula LUE, enterostomy Fall Precautions Family/Caregiver Present: none Overall Cognitive Status: Exceptions - Following commands: follows one step commands with increased time - Attention span: attends with cues to redirect - Memory: decreased recall of recent events, decreased short term memory, and decreased mcc memory - Safety judgement: decreased awareness of need for assistance and decreased awareness of need for safety - Problem solving: assistance required to identify errors made and assistance required to correct errors made - Insights: decreased awareness of deficits Overall Orientation Status: Oriented to Place, Oriented to Time, and Oriented to Person Pt with difficulty recalling current and prior situation, poor historian. Social/Functional History Poor historian. Per pt he came from [facility] Pt unable to recall living situation prior to [facility] states I've been in and out of places. Prior Level of Function Prior Level of ADL Function: Required Assist Prior Level of Mobility: Required Assist; Device: unknown Prior Level of Transfers: Required Assist Objective ADLs LE Dressing: Dependent UE Dressing: Mod Assist Dep to don socks, Mod A sitting EOB due to decreased balance for unsupported sit. Upper Extremity Assessment AROM: WFL PROM: Not assessed this session Strength: Exceptions: generalized weakness noted, functionally observed, not formally MMT due to fistua LUE Bed Mobility Supine to sit: Max Assist Sit to supine: Max Assist Transfers/Mobility Sitting balance: Contact Guard, Mod Assist Mod A progressing to CGA with 1UE support on bed rail with cues to maintain. Cues provided to scoot to EOB, pt noted with increasing fatigue and elbow prop onto L side. Pt perseverative on getting into chair, despite therapist cues to attempt stand at EOB first. Pt fatigued and unable to progress to further transfer. Device(s) used: None Coordination: Not Assessed Tone: Normal Tone Sensation: Not Assessed Vision: Not Assessed Hearing: normal AM-PAC AM-PAC Inpatient Daily Activity Raw Score: 10 ADL Inpatient [facility] G-Code Modifier: CL Plan Pt would benefit from skilled acute OT services to address Strengthening, Balance Training, Self-Care/ADL Training, Functional Mobility Training, Endurance Training, and Patient/Caregiver Training. Frequency: 2x/week for 4 weeks Barriers: Impaired balance, Lower extremity weakness, Upper extremity weakness, Decreased endurance, Limited safety awareness, and Cognitive deficit Safety/Education Safety Safety Devices in place: All fall risk precautions in place, call light within reach, left in bed, gait belt, patient at risk for falls, nurse notified, and no alarms engaged upon entry Restraints: No Education Education Given To: patient Education Provided: OT Role, Plan of Care, ADL Adaptive Strategies, Transfer Training, and Discharge Recommendations Education Method: Verbal Barriers to Learning: Cognition Education Outcome: Continued Education Needed Goals Patient Stated Goal: wants to get stronger Encounter Problems Encounter Problems (Active) Balance Patient will maintain static sitting balance for 5 minutes with SBA in order to demonstrate improved postural control and prepare for out of bed activity Start: 01/20/25 Expected End: 02/17/25 Dressings Lower Extremities Patient will dress lower body with AE PRN with Mod A. Start: 01/20/25 Expected End: 02/17/25 Grooming Patient will complete daily grooming tasks with supervision. Start: 01/20/25 Expected End: 02/17/25 Transfers Patient will complete functional transfer with rolling walker with mod assist in order to prepare for ADLs. Start: 04/26/25 Expected End: 02/17/25 Therapy Time Individual Co-Treatment Co-Evaluation Time In 1429 Time Out 1455 Minutes 26 Timed Code Treatment Minutes: 8 Minutes (x1 ther act) Ro Farnsworth OT Patient's Occupational Therapy Plan of Care supervision is transferred to a [facility] Occupational Therapist. Goals and/or treatment plan was established in collaboration with patient/family/other representatives. Hospitalist Progress Note 01/20/2025 Subjective: Admit Date: 01/19/2025 PCP: Leilani Troncoso Room#: [id number] A BRIEF HOSPITAL COURSE: Patient is a 59 yo male with a PMH of Trach and peg, HTN, paroxysmal a-fib, R occipital ICH, Tobacco abuse, ARF - dialysis (TTS; LUE AVF), diverticulosis, IgA nephropathy, severe that presented to [facility] ED from a facility due to trach dislodgement. Per patient, was trying to disconnect his vent to transfer to another room but accidentally pulled out his tracheostomy. This event happened approximately 45 minutes before ED arrival. ED attempted to place tracheostomy tube back but were unsuccessful. Decision was made to transfer patient to [facility] ICU for further airway management and determine if replacement tracheostomy is needed. Was observed at [facility] ICU initially and transferred to [facility] on 01/20. Noted removal of trach. 01/20: Reported to have bowel movements with blood this morning. Hemoglobin dropped noted to 6.6. GI was consulted. Patient made n.p.o. -on Protonix drip. (Repeat hemoglobin 8.2 -INR reversal was held for the time being after discussion with GI) Was being followed by infectious disease at facility for sacral ulcer -cefepime resumed and infectious disease was consulted for recommendations. Interval History: Seen and examined at bedside. No overnight issues. Noted removal of trach. Did endorse having bloody bowel movements-denied any acute other medical complaints case and plan discussed with patient and bedside nurse. All questions answered. NPO diet with enteral medications 24HR INTAKE/OUTPUT: Intake/Output Summary (Last 24 hours) at 01/20/2025 1345 Last data filed at 01/20/2025 1321 Gross per 24 hour Intake 320 ml Output 0 ml Net 320 ml Past Medical History: Past Medical History: Diagnosis Date Acute renal failure (ARF) ([facility]) 10/19/2019 Anemia 12/30/2021 Calcification of abdominal aorta ([facility]) 10/08/202309/[address] abd Diverticulosis 10/08/2023 ESRD on hemodialysis ([facility]) ([facility]) 10/26/2019 Hemodialysis patient ([facility]) ([facility]) HTN (hypertension) 12/01/2022 Hypertension IgA nephropathy 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 10/26/2019 Missed vaccination due to patient refusal 10/08/2023 Has a number of non-scientific based beliefs which interfere with his understanding and acceptance of the medical benefit of vaccination. Nonrheumatic aortic valve stenosis 10/08/2023 Paroxysmal A-fib ([facility]) ([facility]) 08/18/2023 Tobacco abuse 10/08/2023 LABS: CBC: Recent Labs 01/19/25 0342 01/19/25 0652 01/20/25 0514 01/20/25 0801 01/20/25 1302 WBC 11.6* 10.9* 10.5 -- -- RBC 3.33* 3.44* 2.41* -- -- HGB 9.1* 9.4* 6.6* 8.2* 8.2* HCT 29.1* 30.2* 21.3* 25.8* 25.7* MCV 87.4 87.8 88.4 -- -- RDW 18.5* 18.6* 18.3* -- -- PLT 404 416 279 -- -- BMP: Recent Labs 01/19/25 0342 01/20/25 0514 NA 135* 135* K 4.4 4.8 CL 95* 98 CO2 25 22 BUN 80* 91* CREATININE 3.50* 4.31* GLUCOSE 85 68* CALCIUM 10.6* 9.2 ANIONGAP 15* 15* LIVER PROFILE:No results for input(s): AST, ALT, BILITOT, ALKPHOS, PROT in the last 72 hours. No lab exists for component: LABALBU PT/INR: Recent Labs 01/18/25 0238 01/19/25 0652 PROTIME 21.1* 26.6* INR 2.1* 2.7* CARDIAC ENZYMES: No results for input(s): TROPONINI in the last 72 hours. Procalcitonin: No results found for: PROCAL COVID-19 PCR: No results for input(s): COVID19 in the last 72 hours. Objective: Vitals: BP 103/58 Pulse 91 Temp (!) 35.9 C (96.7 F) Resp 16 Ht 5' 10 (1.778 m) Wt 129 lb 13.6 oz (58.9 kg) SpO2 97% BMI 18.63 kg/m Pulse Ox: SpO2 Av.4 % Min: 93 % Max: 100 % Supplemental O2: Physical Exam HENT: Head: Normocephalic. Cardiovascular: Rate and Rhythm: Normal rate. Pulmonary: Effort: Pulmonary effort is normal. Abdominal: Palpations: Abdomen is soft. Neurological: Mental Status: He is alert and oriented to person, place, and time. Medications: Scheduled PRN ampicillin-sulbactam, 3,000 mg, IntraVENous, q12h collagenase, , Topical, Daily ipratropium-albuterol, 3 mL, Nebulization, q8h Lidocaine, 1 patch, Topical, Daily [Held by provider] metoprolol tartrate, 25 mg, Per G Tube, BID midodrine, 15 mg, Per G Tube, q6h mupirocin, 1 Application, Nasal, BID [Held by provider] warfarin, 2 mg, Oral, Daily PRN medications: acetaminophen, collagenase, melatonin, naloxone, ondansetron ODT OR ondansetron, oxyCODONE OR oxyCODONE Continuous pantoprazole (ProtoNix) 80 mg in sodium chloride 0.9 % 100 mL (0.8 mg/mL) infusion, 8 mg/hr, Last Rate: 8 mg/hr (01/20/25 1331) Assessment Acute, acute on chronic, unstable/uncontrolled chronic problems/diagnoses: GI bleed ESRD on dialysis Acute on chronic anemia History of right occipital ICH A-fib with severe aortic stenosis on Coumadin Dislodged trach-removed Sacral ulcer Stable chronic problems affecting care, new non-acute diagnoses: A-fib Hx right occipital ICH Plan As a result of the above findings & factors, the following mgmt was pursued: - Cefepime restarted and infectious disease consult for sacral ulcer -follow recommendations -Nephrology following for ESRD on dialysis -Hemoglobin drop noted to 6.6 this morning along with GI bleed -GI consult placed N.p.o., Protonix drip Plan for scope on Wednesday or Wednesday Repeat hemoglobin 8.2 -no transfusion. Discussed with GI and holding off on INR reversal at the moment. - am labs, replace lytes prn - PT/OT/CM/SW - delirium precautions: increase activity and limit nighttime disturbances - [facility] course Narrative Discharge Summary Jun Snyder : 1965 ADMIT DATE: 01/19/2025 DISCHARGE DATE: 02/01/2025 PRIMARY CARE PHYSICIAN: Leilani Troncoso VISIT STATUS: Admission CODE STATUS: Full Code DISCHARGE DIAGNOSES: Principal Problem: Complication of tracheostomy (CMS/HCC) (HCC) Active Problems: Severe malnutrition (CMS/HCC) ([facility]) BRBPR (bright red blood per rectum) HOSPITAL COURSE: Jun Snyder is a 59 y.o. male who who presented to [facility] 01/19 after inadvertent removal of his tracheostomy. He was transferred to [facility] ICU for surgical evaluation. On arrival he was maintaining appropriate O2 saturations on room air and the decision was made to leave the tracheostomy out. Able to be transferred out of ICU later that day. On 01/20 critical care and GI were consulted due to rectal bleeding. At that time patient determined to be stable to remain on GMF. On the morning of 01/21, GI recommended ICU transfer for EGD which revealed non-bleeding duodenal ulcer. At that time patient's sacral wound was noted to be bleeding. Have been trending INR's and H&H, currently stable. Received one unit of FFP per ZOË panel on 01/26 with no further evidence of bleed. Resumed Heparin ggt bridge to warfarin. Underwent HD successfully. hemodynamically stable. Transferred out to [facility] 01/27 ID following for sacral osteomyelitis, s/p wound debridement to bone on 01/02, cultures grew E faecalis and Clostridium, continue with renally dosed ampicillin sulbactam for 6 weeks course through 02/13/2025, needs tunneled line, status post IR CVC tunneled line on 01/29 Nephrology following, on dialysis 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 following PT/OT recommends SNF Patient will be discharged to SNF today in stable condition Interval History: 02/01/2025-No overnight issues. Patient is seen and examined He is comfortably resting in his bed without in any acute distress, he reports no new acute complaints Labs reviewed, ESRD picture, hemoglobin 8.9, stable Case and plan discussed with patient and bedside nurse. All questions answered. Past Medical History: Medical History Past Medical History: Diagnosis Date Acute renal failure (ARF) ([facility]) 10/19/2019 Anemia 12/30/2021 Calcification of abdominal aorta ([facility]) 10/08/202309/[address] abd Diverticulosis 10/08/2023 ESRD on hemodialysis ([facility]) ([facility]) 10/26/2019 Hemodialysis patient ([facility]) ([facility]) HTN (hypertension) 12/01/2022 Hypertension IgA nephropathy 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 10/26/2019 Missed vaccination due to patient refusal 10/08/2023 Has a number of non-scientific based beliefs which interfere with his understanding and acceptance of the medical benefit of vaccination. Nonrheumatic aortic valve stenosis 10/08/2023 Paroxysmal A-fib ([facility]) ([facility]) 08/18/2023 Tobacco abuse 10/08/2023 Adult diet Dysphagia - Soft and Bite Sized 24HR INTAKE/OUTPUT: Intake/Output Summary (Last 24 hours) at 02/01/2025 0904 Last data filed at 01/31/2025 1121 Gross per 24 hour Intake 300 ml Output -- Net 300 ml LABS: CBC: Recent Labs 01/30/25 0047 01/30/25 1224 01/31/25 0010 01/31/25205102/01/25 0114 WBC 8.8 -- 9.3 -- 7.9 RBC 3.15* -- 3.10* -- 3.16* HGB 8.7* < > 8.8* 9.2* 8.9* HCT 28.1* < > 27.9* 28.8* 28.3* MCV 89.2 -- 90.0 -- 89.6 RDW 18.9* -- 19.2* -- 18.8* PLT 276 -- 278 -- 282 < > = values in this interval not displayed. BMP: Recent Labs 01/30/25 0047 01/31/25 0010 02/01/25 0114 NA 135* 138 136 K 3.7 4.3 3.7 CL 99 99 99 CO2 23 27 26 BUN 10 15 7* CREATININE 2.56* 3.64* 2.39* GLUCOSE 88 87 87 CALCIUM 9.6 10.0 9.7 ANIONGAP 13 12 11 LIVER PROFILE: Recent Labs 01/31/25 0010 02/01/25 0114 AST 31 32 ALT 11 10 BILITOT 0.8 0.9 ALKPHOS 218* 226* PROT 7.3 7.4 PT/INR: Recent Labs 01/30/25 0047 01/31/25 0010 02/01/25 0114 PROTIME 24.9* 22.4* 20.3* INR 2.5* 2.2* 2.0* CARDIAC ENZYMES: No results for input(s): TROPONINI in the last 72 hours. Procalcitonin: No results found for: PROCAL COVID-19 PCR: No results for input(s): COVID19 in the last 72 hours. Objective: Vitals: BP 138/61 (BP Location: Right arm, Patient Position: Sitting) Pulse 74 Temp 36.2 C (97.2 F) (Temporal) Resp 16 Ht 5' 10 (1.778 m) Wt 101 lb 10.1 oz (46.1 kg) SpO2 94% BMI 14.58 kg/m Pulse Ox: SpO2 Av.3 % Min: 92 % Max: 100 % Supplemental O2: O2 Flow Rate (L/min): 3 L/min Physical Exam HENT: Head: Normocephalic and atraumatic. Mouth/Throat: Mouth: Mucous membranes are moist. Cardiovascular: Rate and Rhythm: Normal rate. Pulmonary: Effort: Pulmonary effort is normal. Abdominal: Palpations: Abdomen is soft. Skin: General: Skin is warm and dry. Neurological: Mental Status: He is alert and oriented to person, place, and time. Psychiatric: Mood and Affect: Mood normal. Medications: Scheduled PRN Scheduled Meds ampicillin-sulbactam, 3,000 mg, IntraVENous, q24h chlorhexidine, , Topical, Daily collagenase, , Topical, Daily Lidocaine, 1 patch, Topical, Daily metoprolol tartrate, 25 mg, Per G Tube, BID midodrine, 10 mg, Oral, BID sodium chloride 0.9%, 10 mL, IntraCATHeter, q12h warfarin, 0.5 mg, Oral, Once PRN Meds PRN medications: acetaminophen, collagenase, dextrose, dextrose, glucagon (rDNA), glucose, ipratropium-albuterol, melatonin, metoprolol, naloxone, oxyCODONE OR oxyCODONE, prochlorperazine, sodium chloride, sodium chloride, sodium chloride 0.9% Continuous Continuous Meds sodium chloride, 20 mL/hr, Last Rate: 20 mL/hr (01/30/25 1959) Assessment Data: (CAT1) Reviewed 2 notes from different specialty or health system (each=1). (CAT1) Reviewed 3 or more labs/studies previously ordered by me not previously counted (each=1, panels count as 1). (CAT1) Ordered 3 or more new labs and/or studies (each=1, panels count as 1). (LOW: 2x CAT1 or independent historian MOD: 3x CAT1 or 1x CAT3 EXTENSIVE: 3x CAT1 and 1x CAT3) Acute, acute on chronic, unstable/uncontrolled chronic problems/diagnoses: GIB w/ bleeding worsened by Coumadin - Internal hemorrhoids Stage V Sacral Wound with osteomyelitis POA Supratherapeutic INR on Coumadin Acute on Chronic Anemia w/ blood loss anemia Aortic Valve Stenosis status post aortic valve replacement on coumadin Chronic Respiratory Failure with Hypoxia s/p Trach - now removed ESRD on HD Chronic Hypotension Afib on Coumadin Necrotic L toes Stable chronic problems affecting care, new non-acute diagnoses: ESRD Hypertension IgA nephropathy Paroxysmal A-fib Plan As a result of the above findings & factors, the following mgmt was pursued: - Seen by GI, s/p colonoscopy -Dose coumadin per SAILAJA, INR daily -Follow HH, transfuse for Hg <7.00 -Wound care -HD per Nephrology MWF -Unasyn 6 weeks until 02/13 for sacral wound with OM by ID -S/p tunneled central line placement -E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 follow, dysphagia diet -PT OT DC recommend SNF SIGNIFICANT DIAGNOSTIC STUDIES: IR cvc tunneled central line placement [[id number]] Collected: 01/30/25 143 Order Status: Completed Updated: 01/30/251438 Narrative: [facility] Name: [facility]UN SN[facility] 1965 [id number] Exam Date/Time: 01/30/2025 14:00 Procedure: IR CVC TUNNELED CENTRAL LINE PLACEMENT Ordering Provider: LIRA JIANFANG Reason For Exam: for IV abx PROCEDURE: Tunneled central venous catheter placement Procedural Personnel Attending physician(s): Jun Borrero DR Indication: Long-term IV antibiotics Additional clinical history: None Complications: No immediate complications. Impression: Insertion of right-sided dual-lumen tunneled Infusion catheter, with tip in the expected location of the cavoatrial junction. Plan: The catheter may be used immediately. PROCEDURE SUMMARY: - Venous access with ultrasound guidance - Tunneled central venous catheter insertion with fluoroscopic guidance - Additional procedure(s): None PROCEDURE DETAILS: Pre-procedure Consent: Informed consent for the procedure including risks, benefits and alternatives was obtained and time-out was performed prior to the procedure. Preparation (MIPS): The site was prepared and draped using all elements of maximal sterile barrier technique including sterile gloves, sterile gown, cap, mask, large sterile sheet, sterile ultrasound probe cover, hand hygiene and cutaneous antisepsis with 2% chlorhexidine. Medical reason for site preparation exception (MIPS): Not applicable Anesthesia/sedation Level of anesthesia/sedation: No sedation Access Local anesthesia was administered. The vessel was sonographically evaluated and determined to be patent. Real time ultrasound was used to visualize needle entry into the vessel and a permanent image was stored. Vein accessed (QCDR): Internal jugular vein Access technique: Micropuncture set with 21 gauge needle Venography Indication for venography: Not performed Vein catheterized: Not applicable Findings: Not applicable Catheter placement An incision was made near the venous access site and the catheter was tunneled subcutaneously to the venous access site. The catheter was advanced via a peel-away sheath into the vein under fluoroscopic guidance. Catheter tip location was fluoroscopically verified and a permanent image was stored. Catheter placed: 6 Fr DL Pro-Line Tunneled Infusion Catheter Catheter tip position: Cavoatrial Junction. Catheter flush: Heparin (100 units/mL) Closure A sterile dressing was applied. Access site closure technique: Tissue adhesive Catheter securement technique: Non-absorbable suture Contrast Contrast agent: None Contrast volume (mL): 0 Radiation Dose Fluoroscopy time (minutes): 1.6 Fluoroscopy Dose: Ka,r = 3.9 mGy Additional Details Additional description of procedure: None Equipment details: None Specimens removed: None Estimated blood loss (mL): Less than 10 Report Dictated on Electronically Signed By: Jun Borrero DR Electronically Signed Date/Time: 01/30/2025 2:37 PM EDT FL modified barium with video and speech [[id number]] Collected: 01/25/25 1328 Order Status: Completed Updated: 01/25/25 1514 Narrative: Patient Name: JUN SNYDER : 1965 Exam Date/Time: 01/25/2025 11:42 Procedure: FL MODIFIED BARIUM WITH VIDEO AND SPEECH Ordering Provider: HIGGINS MICHAEL Reason For Exam: Dysphagia MODIFIED BARIUM SWALLOW (COOKIE SWALLOW) CLINICAL INDICATION: Dysphagia. COMPARISON: None. FLUOROSCOPY DOSE: Ka,r= 26.54 mGy TECHNIQUE: The procedure was performed in conjunction with speech therapy. Barium mixtures of various consistencies were given under fluoroscopy with the patient in the sitting lateral position. FINDINGS: Preparatory phase shows decreased mastication, decreased bolus formation and decreased dentition. Oral phase shows base of tongue residue, oral residuals, decreased A/P transit with spillage to the valleculae and piriforms. Pharyngeal phase shows reduced laryngeal elevation, a weak tongue base with vallecular and piriform residuals. Coating of the back of the epiglottis is observed. There is no vocal cord penetration or airway aspiration. Cervical osteophytes are noted. Impression: No vocal cord penetration or airway aspiration. Please refer to the speech pathologist's report for additional comments and recommendation. Report Dictated on Electronically Signed By: Sulaiman Harp MD Electronically Signed Date/Time: 01/25/2025 3:12 PM EDT XR chest 1 view [[id number]] Collected: 01/24/25 0158 Order Status: Completed Updated: 01/24/25 0200 Narrative: Patient Name: JUN SNYDER : 1965 Exam Date/Time: 01/24/2025 01:45 Procedure: XR CHEST 1 VIEW Ordering Provider: HIGGINS MICHAEL Reason For Exam: evaluate for cardiopulmonary dx/lines/tubes CLINICAL INFORMATION: Shortness of breath. Portable view of the chest at 0150 hours is provided and compared to a previous study dated January 19, 2025. FINDINGS: The patient is status post median sternotomy and valve repair. The cardiac silhouette and mediastinum are otherwise unremarkable. There is prominence of the interstitium and central pulmonary vasculature. Mild infiltrate is noted in the lingula of the left upper lobe. The aeration of the lungs has mildly improved. Impression: 1. Median sternotomy and valve repair. 2. Infiltrate in the lingula of the left upper lobe. 3. Prominence of the central pulmonary vasculature consistent with mild congestive heart failure/fluid overload. 4. The aeration of the lungs has improved mildly when compared to the previous study. Report Dictated on Electronically Signed By: Delon Torres MD Electronically Signed Date/Time: 01/24/2025 1:59 AM EDT CTA abdomen pelvis angiogram w and/or wo IV contrast [[id number]] Collected: 01/20/25 184 Order Status: Completed Updated: 01/20/25 190 Narrative: Patient Name: JUN SNYDER : 1965 Exam Date/Time: 01/20/2025 17:02 Procedure: CT ABDOMEN PELVIS ANGIOGRAM W AND/OR WO IV CONTRAST Ordering Provider: DENSON ADITYA Reason For Exam: Bright red blood per rectum Gender: Male Age: 59 years History: Bright red blood per rectum Exam: CT ABDOMEN PELVIS ANGIOGRAM W AND/OR WO IV CONTRAST Indication: Bright red blood per rectum Scan Parameters: Multiple axial CT images were obtained of the abdomen and pelvis. Coronal and sagittal reconstructions were reviewed as well. ALARA protocol. Dose reduction was employed with automated exposure control. Additional reconstructed MIP images provided with 3-D postprocessing. Contrast: Imaging was obtained before and after the administration of IV contrast with 75 mL Isovue-370 IV contrast; no oral contrast (patient is end-stage renal disease and is on dialysis and will receive dialysis after contrast administration as dictated by the nephrology). Comparison: 11/16/2024 CT abdomen and pelvis with IV contrast FINDINGS: Heart: The heart is enlarged. Lung bases: Bilateral small pleural effusions are present, right greater than left, with compressive atelectasis and/or infiltrate. Osseous structures: There is no acute osseous process. There is narrowing of both hips. Liver: There is diffuse fatty infiltration of the liver. Gallbladder/Biliary tree: Multiple gallstones are present within a decompressed and contracted gallbladder with wall thickening measuring 6-7 mm (differential includes poor distention, systemic process, cholecystitis). There is no significant biliary ductal distention. Spleen: Normal. Adrenals: Normal. Pancreas: Normal. Kidneys/Bladder: The kidneys are significantly atrophied with cortical thinning. There is no hydronephrosis. This patient has end-stage renal disease. The bladder contour is normal. Prostate: The prostate gland is not enlarged. Peritoneal Cavity/Retroperitoneum: There is no lymphadenopathy. Clips are present within the mesentery adjacent to the stomach and duodenum in the right upper quadrant, unchanged. Soft tissues: There is a soft tissue ulcer with locules of air, edema, and fluid which extends to the sacrum and coccyx and measures a distance of 11.3 cm on sagittal exam and this is new compared to 11/16/2024. GI Tract: A percutaneous gastrostomy tube is present anteriorly. Intraluminal fluid is present within multiple loops of small and large bowel including the rectum. There is no appreciable intraluminal IV contrast to identify site and/or source of GI bleed as the intraluminal contents appear similar to precontrast exam. There is no bowel obstruction. No appreciable free air. The appendix is not identified with certainty. Multiple colonic diverticuli are present. Vasculature: Atherosclerotic calcifications are present along the aorta and branches. There is ectasia of the infrarenal aorta. An IVC filter is present. Impression: 1. Imaging does not identify the site and/or source of the GI bleed. There is no intraluminal IV contrast appreciated. There are multiple loops of fluid-filled small and large bowel. The rectum is mildly distended with intraluminal fluid, consider diarrhea. 2. There is a large posterior decubitus ulcer which extends to the sacrum and coccyx with locules of air, fluid, and edema, correlate with clinical physical exam. This is new compared to 11/16/2024. 3. Colonic diverticulosis. 4. Renal atrophy. This patient has end-stage renal disease and is receiving dialysis. 5. Cholelithiasis. The gallbladder is decompressed with wall thickening measuring 6-7 mm (differential includes poor distention, systemic process, cholecystitis). Consider nuclear medicine HIDA scan and/or ultrasound. 6. Bilateral small pleural effusions with compressive atelectasis and/or infiltrate. Cardiomegaly. 7. Other: IVC filter. Percutaneous gastrostomy tube. Additional findings, as above. Report Dictated on Electronically Signed By: Karly Parker MD Electronically Signed Date/Time: 01/20/2025 7:02 PM EDT XR chest 1 view [[id number]] Collected: 01/19/25 0615 Order Status: Completed Updated: 01/19/2517 Narrative: Patient Name: JUN SNYDER : 1965 Exam Date/Time: 01/19/2025 05:58 Procedure: XR CHEST 1 VIEW Ordering Provider: NGUYEN HARSHA Reason For Exam: CHEST PAIN CLINICAL INFORMATION: Chest pain. Portable view of the chest at 0605 hours is provided and compared to a previous study dated November 28, 2024. FINDINGS: The patient is status post CABG with the usual sternal wires and surgical clips. A mild infiltrate is noted in the lingula of left upper lobe. There is mild prominence of the central pulmonary vasculature. Aeration of the lungs has improved. Impression: 1. Lingular infiltrate. 2. Prominence of the central pulmonary vasculature consistent with mild congestive heart failure/fluid overload. 3. Overall significant improvement in the aeration of the lungs when compared to the previous study. Report Dictated on Electronically Signed By: Delon Torres MD Electronically Signed Date/Time: 01/19/2025 6:16 AM EDT XR chest 1 view [[id number]] Collected: 01/18/25 1242 Order Status: Completed Updated: 01/19/25212 Narrative: XR CHEST 1 VW: Findings: Single AP view compared with 01/11/2025. Stable prominent bilateral lung opacities by frontal exam. No pneumothorax. Cardiac silhouette size stable presented view. Tracheostomy. IMPRESSION: Bilateral opacities by 1 view. Stable. Electronically Signed By: Dr. Anthony Mulligan 01/18/2025 14:58:25 EDT CONSULTANTS: Nephrology, GI, ID, palliative care, general surgery RECOMMENDED NEXT STEPS: Transfer to SNF, follow-up with nephrology, GI, ID DISCHARGE MEDICATIONS: Medication List START taking these medications oxyCODONE 5 MG immediate release tablet Commonly known as: Roxicodone Take 1 tablet (5 mg) by mouth every 6 hours as needed for moderate pain (4-6) for up to 5 days. CONTINUE taking these medications epoetin rowan-epbx [id number] UNIT/ML injection Commonly known as: Retacrit Inject 0.79 mL (7,900 Units) under the skin 1 (one) time per week. ipratropium-albuterol 0.5-2.5 mg/3 mL nebulizer solution Commonly known as: Duo-Neb Take 3 mL by nebulization every 8 hours. Lidocaine 4 % patch Apply 1 patch topically daily. melatonin 5 MG tablet 1 tablet (5 mg) by Per G Tube route Nightly as needed (insomnia). metoprolol tartrate 25 MG tablet Commonly known as: Lopressor 1 tablet (25 mg) by Per G Tube route 2 times daily. midodrine 5 MG tablet Commonly known as: Proamatine 3 tablets (15 mg) by Per G Tube route every 6 hours. pantoprazole 40 MG injection Commonly known as: ProtoNix Infuse 40 mg into a venous catheter 2 times daily. QUEtiapine 25 MG tablet Commonly known as: SEROquel 1 tablet (25 mg) by Per G Tube route Nightly. warfarin 1 MG tablet Commonly known as: Coumadin Take as directed per After Visit Summary. STOP taking these medications heparin 100 UNIT/ML in dextrose 5 % infusion heparin 1000 UNIT/ML injection Where to Get Your Medications You can get these medications from any pharmacy Bring a paper prescription for each of these medications oxyCODONE 5 MG immediate release tablet DIET: Adult diet Dysphagia - Soft and Bite Sized ACTIVITY: No restriction. COMPLEXITY OF FOLLOW UP: [] Moderate Complexity: follow up within 7-14 calendar days ([id number]) [] Severe Complexity: follow up within 7 calendar days ([id number]) FOLLOW UP TESTING, PENDING RESULTS OR REFERRALS AT TRANSITIONAL CARE VISIT: [] Yes [] No PENDING STUDIES: DISPOSITION: Skilled Facility FACILITY/HOME CARE AGENCY NAME: Follow up with [facility] [address] [place] [id number] Gurdeep Cruz MD [address] [place] [address] [address] [facility] [phone] Schedule an appointment as soon as possible for a visit in 4 week(s) INSTRUCTIONS TO MA/SW: Please call patient on day after discharge (must document patient contacted within 2 business days of discharge). FOLLOW UP QUESTIONS FOR MA/SW: 1. Did you get medications filled and taking them as instructed from discharge? 2. Are you following your discharge instructions from your hospital stay? 3. Please confirm patient is scheduled for a follow up appointment within the above time frame. DISCHARGE TIME: I spent 33.5 minutes on patient education, discharge planning SIGNED: Barb Dawkins MD 02/01/2025, 10:29 AM documented in this encounter [facility] 01-30-2025 Note Patient receiving ot her care, will attempt smoking cessation counseling at a later date. [facility] 01-30-2025 Note Problem: Pain - Adul t Goal: Verbalizes/displays adequate comfort level or baseline comfort level Outcome: Progressing Problem: Safety - Adult Goal: Free from fall injury Outcome: Progressing [facility] 01-29-2025 Telephone encount er Note Chart reviewed, patient appears to be sensitive to warfarin at this time and I wouldn't be able to guarantee INR remains less than 3, so opted to hold dose today. I canceled order. [facility] Work Phone: 01-29-2025 Miscellaneous Notes Formattin g of this note might be different from the original. Chart reviewed, patient appears to be sensitive to warfarin at this time and I wouldn't be able to guarantee INR remains less than 3, so opted to hold dose today. I canceled order. SWEETIE Singh with [facility] called to inform [facility] patient is scheduled to have a tunnel cath line tomorrow and Dr. Lira is inquiring if patient should hold his warfarin 0.[address] Lira does not want INR to go above to 3.0 tomorrow. Staffed with Natali Richter, PERI, CACP, she will cancel patient's warfarin dose tomorrow and SAILAJA will make adjustments as needed tomorrow. documented in this encounter [facility] 01-29-2025 Telephone encount er Note SWEETIE Singh with [facility] called to inform [facility] patient is scheduled to have a tunnel cath line tomorrow and Dr. Lira is inquiring if patient should hold his warfarin 0.[address] Lira does not want INR to go above to 3.0 tomorrow. Staffed with Natali Richter, PERI, CACP, she will cancel patient's warfarin dose tomorrow and SAILAJA will make adjustments as needed tomorrow. [facility] 01-26-2025 Hospital Discharg e instructions Kristine Donato RN - 01/26/2025 2:43 PM EDT Images from the original note were not included. Continuity of Care Form Patient Name: Jun Snyder : 1965 Admit date: 01/19/2025 Discharge date: 02/01/2025 Code Status Order: Full Code Advance Directives: Y Admitting Physician: Quiana Jeffery DO PCP: Leilani Troncoso Discharging Nurse: Kristine Donato RN Discharging Hospital Unit/Room#: T3-321/T3-321 A Discharging Unit Emergency Contact: Extended Emergency Contact Information Primary Emergency Contact: Omar Snyder Mobile Relation: Child Secondary Emergency Contact: Toma Mcneil Mobile Relation: Partner Past Surgical History: Past Surgical History: Procedure Laterality Date APPENDECTOMY CARDIAC CATHETERIZATION N/A 10/09/2024 Performed by Bob Watson MD at [facility] Cardiac Cath/EP Lab CARDIAC CATHETERIZATION Bilateral 11/01/2024 Performed by Bob Watson MD at [facility] Cardiac Cath/EP Lab CARDIAC CATHETERIZATION N/A 11/01/2024 Performed by Bob Watson MD at [facility] Cardiac Cath/EP Lab COLONOSCOPY N/A 01/24/2025 Performed by Chadd Davis MD at [facility] ENDOSCOPY FISTULAGRAM (HISTORICAL) Left 09/15/2021 LEFT UPPER ARM HX AV FISTULA CREATION IR EMBOLIZATION 10/14/2024 IR EMBOLIZATION 10/14/2024 [facility] SPECIAL PROCEDURES IR FISTULAGRAM 08/07/2022 IR FISTULAGRAM 08/07/2022 [facility] IR IMAGING TONSILLECTOMY (HISTORICAL) Immunization History: Immunization History Administered Date(s) Administered Hep B, Unspecified 11/15/2019, 12/19/2019, 01/19/2020, 05/20/2020 Active Problems: Medical Problems Problem List * (Principal) Complication of tracheostomy (CMS/HCC) (HCC) Paroxysmal A-fib (CMS/HCC) (HCC) HTN (hypertension) ESRD on hemodialysis (CMS/HCC) (HCC) 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 Diverticulosis Nonrheumatic aortic valve stenosis Calcification of abdominal aorta (HCC) Overview Signed 10/08/2023 4:44 PM by Jr Shah MD 09/[address] abd Missed vaccination due to patient refusal Overview Signed 10/08/2023 4:54 PM by Jr Shah MD Has a number of non-scientific based beliefs which interfere with his understanding and acceptance of the medical benefit of vaccination. Tobacco abuse Alcohol use disorder in remission Atrial flutter, unspecified type (HCC) RSV (acute bronchiolitis due to respiratory syncytial virus) Gastric ulceration Severe malnutrition (CMS/HCC) (HCC) (Chronic) Pleural effusion Peritonitis due to fungus (HCC) History of abdominal surgery Leg DVT (deep venous thromboembolism), acute, left (HCC) 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, 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) 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HCC) Leukocytosis Decubitus ulcer of sacral region, unstageable (HCC) Pneumonia of both lungs due to methicillin susceptible Staphylococcus aureus (MSSA) (HCC) Sacral osteomyelitis (CMS/HCC) (HCC) Acute respiratory failure with hypoxia ([facility]) [J96.01] Tracheostomy care ([facility]) [Z43.0] 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[facility]) senior living (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 Anemia Aortic stenosis Upper GI bleed S/P AVR Acute hypoxic respiratory failure ([facility]) Acute encephalopathy Pneumoperitoneum BRBPR (bright red blood per rectum) Isolation/Infection: No active isolations No active infections Nurse Assessment: Last Vital Signs: BP 142/80 Pulse 84 Temp 36.5 C (97.7 F) Resp 14 Ht 1.778 m (5' 10) Wt 58.9 kg (129 lb 13.6 oz) SpO2 99% BMI 18.63 kg/m Last documented pain score (0-10 scale): Last Weight: Wt Readings from Last 1 Encounters: 01/19/25 58.9 kg (129 lb 13.6 oz) Mental Status: ROSENDO Patient Mental Status: oriented IV Access: ROSENDO IV Access: PICC - site: internal jugular right, condition patent and no redness, insertion date: 01/30/2025 Nursing Mobility/ADLs: Walking Total assistance Transfer Total assistance Bathing Total assistance Dressing Total assistance Toileting Total assistance Feeding Independent Weigher And Crusher Independent Med Delivery yes Wound Care Documentation and Therapy: Wound/Incision 11/13/24 Pressure Injury Sacrum (Active) Wound Image 01/19/25 0500 Site Assessment Starke;Red 01/26/25 1200 Mahnaz-Wound Assessment Intact 01/26/25 0355 Drainage Description Red 01/26/25 1200 Odor None 01/25/25 0000 Drainage Amount Small 01/26/25 1200 Treatments Cleansed;Pharmaceutical agent 01/23/25 0200 Primary Dressing Vacuum dressing 01/26/25 1200 Dressing Status Clean, dry & intact 01/26/25 1200 State of Healing Tunneling 01/25/25 0000 Number of days: 74 Wound/Incision 11/15/24 Traumatic Arm Anterior;Left;Upper (Active) Number of days: 72 Wound/Incision 11/15/24 Other (comment) Toe - third Anterior;Left (Active) Wound Image 01/19/25 0516 Site Assessment Black;Necrotic 01/26/25 1200 Mahnaz-Wound Assessment Dry 01/26/25 1200 Drainage Description Unable to assess 01/23/25 0200 Odor None 01/26/25 1200 Drainage Amount None 01/26/25 1200 Treatments Site care;Cleansed 01/26/25 0355 Primary Dressing Open to air 01/26/25 1200 Number of days: 71 Wound/Incision 11/19/24 Traumatic Achilles Left (Active) Number of days: 67 Wound/Incision 11/19/24 Traumatic Heel Left (Active) Number of days: 67 Wound/Incision 01/19/25 Pressure Injury Head Posterior;Medial (Active) Site Assessment Non-blanchable erythema 01/26/25 1200 Mahnaz-Wound Assessment Non-blanchable erythema 01/25/25 0000 Drainage Description Unable to assess 01/23/25 0800 Odor None 01/25/25 0000 Drainage Amount None 01/25/25 0000 Treatments Cleansed;Site care 01/19/25 1200 Primary Dressing Open to air 01/26/25 1200 Number of days: 7 Elimination: Continence: Bowel: yes Bladder: no Urinary Catheter: None Colostomy/Ileostomy/Ileal Conduit: None Date of Last BM: 01/31/2025 Intake/Output Summary (Last 24 hours) at 01/26/2025 1442 Last data filed at 01/26/2025 0612 Gross per 24 hour Intake 1885.5 ml Output 100 ml Net 1785.5 ml I/O last 3 completed shifts: In: 2512 (42.6 mL/kg) [P.O.:200; I.V.:1817.5 (30.9 mL/kg); Blood:374.5; NG/GT:120] Out: 100 (1.7 mL/kg) [Drains:100] Weight: 58.9 kg Safety Concerns: at risk for falls Impairments/Disabilities: speech Nutrition Therapy: Current Nutrition Therapy: Oral diet: dental soft Routes of Feeding: oral Liquids: thin liquids Daily Fluid Restriction: no Last Modified Barium Swallow with Video (Video Swallowing Test): not done Treatments at the Time of Hospital Discharge: Respiratory Treatments: Oxygen Therapy: is not on home oxygen therapy. Ventilator: No ventilator support Rehab Therapies: physical therapy, occupational therapy, and speech therapy Weight Bearing Status/Restrictions: no restriction Other Medical Equipment (for information only, NOT a DME order): bedside commode Other Treatments: Patient's personal belongings (please select all that are sent with patient): glasses RN SIGNATURE: MANAGEMENT/SOCIAL WORK SECTION Inpatient Status Date: 01/21/25 Discharging to Facility/ Agency Name: [facility] Address: [address] [place] [address] Fax: Dialysis Facility (if applicable) Name: Address: Dialysis Schedule: [facility] Phone: Fax: Licensed Physical Therapy Assistant/Physician Internist signature: ICIAN SECTION Name: Jun Snyder Prognosis: fair Condition at Discharge: stable Rehab Potential (if transferring to Rehab): fair Recommended Labs or Other Treatments After Discharge: cbc,cmp, PT/INR for warfarin, C/W Ampicillin-Sulbactam till 02/13, F/U with ID The individual is being admitted to a nursing facility directly from an [facility] or a unit of a [facility] that is not operated by or licensed by [facility] under section 5119.14 or 5160-3-15.1 5 The individual requires the level of services provided by a nursing facility for the condition for which he or she was treated in the hospital and, Physician Certification: I certify the above information and transfer of Jun Snyder is necessary for the continuing treatment of the diagnosis listed and that he requires custodial facility for less than 30 days. Update Admission H&P: No change in H&P PHYSICIAN SIGNATURE: documented in this encounter [facility] 01-24-2025 Note [facility] 01-24-2025 Procedure note Images from the original note were not included. Conscious Sedation Procedure Note Sedation Goal: deep Procedure: Colonoscopy Proceduralist: Dr. Sanon Indication: GI bleed Time Out: Completed immediately prior to the start of the procedure which included verification of the correct patient, correct site and agreement on the procedure to be done. Consent: The indications, risks, benefits, alternatives to the procedure were explained to the patient/surrogate decision maker and their questions answered. Consent was obtained to proceed with the procedure. Pre-Sedation Assessment Pre-Sedation Vital Signs: Vital signs were reviewed and were stable prior the procedure (see flowsheet) Pre-Sedation Exam: Assessment: I have personally completed a history, physical exam & review of systems for this patient (see notes). Pulmonary: clear to auscultation Cardiovascular: regular rate and rhythm ENT: no obvious abnormalities noted during assessment Mallampati: Mallampati Class III - (soft palate & base of uvula are visible) ASA Classification: Class 4 - A patient with an incapacitating systemic disease that is a constant threat to life History of Anesthesia Complications: none Immediate Pre-Sedation Assessment There have been no changes in the patient's status since the initial assessment. Intra-Sedation Assessment Monitoring and Safety: The patient was placed on a bobbin cleaner and vital signs, pulse oximetry, and level of consciousness were continuously evaluated throughout the procedure. The patient was closely monitored until recovery from the medications was complete and the patient had returned to baseline status. Respiratory therapy was on standby at all times during the procedure. Medications Used: 190 mg Propofol Post-Sedation Assessment Post-Sedation Vital Signs: Vital signs were reviewed and were stable after the procedure (see flowsheet) Post-Sedation Exam: Pulmonary: clear to auscultation Cardiovascular: regular rate and rhythm Start time: 1255 Stop time: 1314 Complications: none apparent Sedation Provider: I personally performed the sedation documented as signed by this procedure note. Cosigned by Koffi Kuo MD at 01/24/2025 2:08 PM EDT Associated attestation - Koffi Kuo MD - 01/24/2025 2:08 PM EDT Supervision: Supervision was required for this procedure. I, Koffi Kuo, was physically present and supervised all francis elements of the procedure. documented in this encounter [facility] 01-23-2025 Consult note Associated Order (s): INPATIENT CONSULT TO WOUND CARE PROVIDERS Images from the original note were not included. [facility] Wound Care Re-CONSULT Note Jun Snyder AGE: 59 y.o. GENDER: male : 1965 Subjective: HISTORY of PRESENT ILLNESS HPI Jun Snyder is a 59 y.o. male who presents for a wound re-consult. HPI: Jun is a 59 yo male with a PMH of Trach and peg, HTN, paroxysmal a-fib, R occipital ICH, Tobacco abuse, ARF - dialysis (TTS; LUE AVF), diverticulosis, IgA nephropathy, severe that presented to [facility] ED from a facility due to trach dislodgement. Wound Care consulted for Pressure Injury sacrum and Ischemic ulcers to left toes Patient resting in envella. Wound vac applied at time of visit with patient tolerating well. Denies any needs. No VAC orders in place at time of visit, Wound care service will place orders and manage VAC at this time. PAST MEDICAL HISTORY Past Medical History: Diagnosis Date Acute renal failure (ARF) ([facility]) 10/19/2019 Anemia 12/30/2021 Calcification of abdominal aorta ([facility]) 10/08/202309/[address] abd Diverticulosis 10/08/2023 ESRD on hemodialysis ([facility]) ([facility]) 10/26/2019 Hemodialysis patient ([facility]) ([facility]) HTN (hypertension) 12/01/2022 Hypertension IgA nephropathy 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 10/26/2019 Missed vaccination due to patient refusal 10/08/2023 Has a number of non-scientific based beliefs which interfere with his understanding and acceptance of the medical benefit of vaccination. Nonrheumatic aortic valve stenosis 10/08/2023 Paroxysmal A-fib ([facility]) ([facility]) 08/18/2023 Tobacco abuse 10/08/2023 PAST SURGICAL HISTORY Past Surgical History: Procedure Laterality Date APPENDECTOMY CARDIAC CATHETERIZATION N/A 10/09/2024 Performed by Bob Watson MD at [facility] Cardiac Cath/EP Lab CARDIAC CATHETERIZATION Bilateral 11/01/2024 Performed by Bob Watson MD at [facility] Cardiac Cath/EP Lab CARDIAC CATHETERIZATION N/A 11/01/2024 Performed by Bob Watson MD at [facility] Cardiac Cath/EP Lab FISTULAGRAM (HISTORICAL) Left 09/15/2021 LEFT UPPER ARM HX AV FISTULA CREATION IR EMBOLIZATION 10/14/2024 IR EMBOLIZATION 10/14/2024 [facility] SPECIAL PROCEDURES IR FISTULAGRAM 08/07/2022 IR FISTULAGRAM 08/07/2022 [facility] IR IMAGING TONSILLECTOMY (HISTORICAL) FAMILY HISTORY Family History Problem Relation Name Age of Onset No Known Problems Mother No Known Problems Father SOCIAL HISTORY Social History Tobacco Use Smoking status: Every Day Current packs/day: 1.00 Average packs/day: 1.4 packs/day for 31.2 years (45.0 ttl pk-yrs) Types: Cigarettes Start date: 1993 Passive exposure: Past Smokeless tobacco: Never Tobacco comments: Started at 28, 3 PPD, tapered down to 1 PPD in 2020 after quitting drinking. 10/27/24 Vaping Use Vaping status: Never Used Substance Use Topics Alcohol use: Not Currently Drug use: Never ALLERGIES Allergies Allergen Reactions Lisinopril Swelling and Angioedema MEDICATIONS No current facility-administered medications on file prior to encounter. Current Outpatient Medications on File Prior to Encounter Medication Sig Dispense Refill epoetin rowan-epbx (Retacrit) 22964 UNIT/ML injection Inject 0.79 mL (7,900 Units) under the skin 1 (one) time per week. heparin 100 units/mL in dextrose 5 % infusion Infuse 294.5-1,767 Units/hr into a venous catheter continuous. heparin 1000 units/mL injection Infuse 2 mL (2,000 Units) into a venous catheter as needed (heparin dosing algorithm). heparin 1000 units/mL injection Infuse 4 mL (4,000 Units) into a venous catheter as needed (per heparin dosing algorithm). ipratropium-albuterol (Duo-Neb) 0.5-2.5 mg/3 mL nebulizer solution Take 3 mL by nebulization every 8 hours. Lidocaine 4 % patch Apply 1 patch topically daily. melatonin 5 MG tablet 1 tablet (5 mg) by Per G Tube route Nightly as needed (insomnia). metoprolol tartrate (Lopressor) 25 MG tablet 1 tablet (25 mg) by Per G Tube route 2 times daily. midodrine (Proamatine) 5 MG tablet 3 tablets (15 mg) by Per G Tube route every 6 hours. pantoprazole (ProtoNix) 40 MG injection Infuse 40 mg into a venous catheter 2 times daily. QUEtiapine (SEROquel) 25 MG tablet 1 tablet (25 mg) by Per G Tube route Nightly. warfarin (Coumadin) 1 MG tablet Take as directed per After Visit Summary. REVIEW OF SYSTEMS Pertinent items are noted in HPI. Objective: BP 122/70 Pulse 94 Temp 36.1 C (97 F) (Temporal) Resp 17 Ht 1.778 m (5' 10) Wt 58.9 kg (129 lb 13.6 oz) SpO2 97% BMI 18.63 kg/m PHYSICAL EXAM General appearance: in no apparent distress, well developed and well nourished, in no respiratory distress and acyanotic, and alert Skin: warm and dry Pulmonary: Normal effort, no respiratory distress, no cyanosis Sacrum: Focused assessment on wound VAC dressing change. Wet to dry removed from wound with saline without any difficulties. Small amount of serosang drainage noted from wound. No purulence, bleeding or odor. All wounds and periwounds cleansed with saline, patted dry and cavilon no sting applied to periwound. Patient's stage 4 pressure wound measuring 8.9 x 4.5 x 2cm with circumferential. Wound bed with pink tissue, slough, adipose tissue, clots. Applied 1 piece of black foam. non-disposable Wound VAC well sealed at 125 mmHg continuous suction. 01/23/25 Left toes 1-4: Necrotic dry stable intact eschar with no drainage noted. Mahnaz wound with dry peeling flaky skin. 01/23/25 LABS CBC: Lab Results Component Value Date WBC 11.1 (H) 01/23/2025 HGB 7.3 (L) 01/23/2025 HCT 23.4 (L) 01/23/2025 MCV 88.6 01/23/2025 PLT 345 01/23/2025 BMP: Lab Results Component Value Date NA 140 01/23/2025 K 3.4 (L) 01/23/2025 CL 102 01/23/2025 CO2 25 01/23/2025 PHOS 4.5 01/23/2025 BUN 22 01/23/2025 CREATININE 2.34 (H) 01/23/2025 PT/INR: Lab Results Component Value Date PROTIME 20.0 (H) 01/23/2025 INR 2.0 (H) 01/23/2025 Prealbumin: No results found for: PREALBUMIN Albumin:No components found for: LABALBU Sed Rate:No results found for: SEDRATE Micro: No components found for: BC Assessment/Plan: Nursing staff to perform dressing change: Sacrum: Pressure Injury Stage 4 (POA) - Clean with NS, apply Vac. Place black foam to wound bed at 125mmHg continuous, change 3 times a week and PRN - Change cannister once a week or when full. - If suction fails: - remove vac dressing - cleanse wound with normal saline - pack wound with saline moistened gauze and change every 12 hours -Envella bed -waffle chair cushion -Q2hr/PRN turns -glide sheets for T&R -continence checks Q1-2 Hrs/PRN Left toes 1-4: Arterial Ulcer (Unknown) -cleanse with NS, apply Betadine and allow to dry, leave [employer] A[employer] daily and PRN -Recommend PVRs for circulation check Nutritional support Wound Care to follow Recommend to follow up at [facility] Outpatient wound care center after hospital discharge. Any questions or concerns please secure chat [facility] wound/ostomy. Thank you for the consult! I personally obtained the francis and critical portions of the history and physical exam. I reviewed the labs, imaging studies, and electronic medical record. I reviewed the chart documentation and discussed the patient with treatment team members. I have edited the note to reflect my clinical findings and my assessment and plan. Please note, the time of this note does not reflect the time I saw this patient today, but the time of this documentaton. Portions of this note including HPI, ROS, impression/plan, and examination may have been copied forward from admission to today as to provide important historical information essential in contributing to medical decision making. Documentation has been reviewed and edited as necessary to support clinical decision making for today's visit and to reflect my own independent evaluation of this patient. Decision making for today's visit and to reflect my own independent evaluation of this patient. Wound vac applied by Jesus Lacy RN and Wanda Quesada RN Cosigned by Ahsan Gill DO at 01/29/2025 4:37 PM EDT [facility] Anticoagulation Management Service ([facility]) Inpatient Warfarin Consult HPI: Jun Snyder is a 59 y.o. male admitted on 01/19/2025 for Complication of tracheostomy ([facility]) ([facility]) [J95.00] Past Medical History: Diagnosis Date Acute renal failure (ARF) ([facility]) 10/19/2019 Anemia 12/30/2021 Calcification of abdominal aorta ([facility]) 10/08/202309/[address] abd Diverticulosis 10/08/2023 ESRD on hemodialysis (CMS/HCC) ([facility]) 10/26/2019 Hemodialysis patient ([facility]) ([facility]) HTN (hypertension) 12/01/2022 Hypertension IgA nephropathy 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 10/26/2019 Missed vaccination due to patient refusal 10/08/2023 Has a number of non-scientific based beliefs which interfere with his understanding and acceptance of the medical benefit of vaccination. Nonrheumatic aortic valve stenosis 10/08/2023 Paroxysmal A-fib ([facility]) ([facility]) 08/18/2023 Tobacco abuse 10/08/2023 Patient is on warfarin for Afib, mechanical AVR and has a goal INR 2.0 - 3.0. Warfarin is currently managed by facility, has yet to be seen by [facility]. Pt's home dose of warfarin is not yet established, managed by facility. S/sx of bleeding= concern for GIB, anemia, bloody BM overnight Interacting medications= Unasyn Labs: Recent Labs 01/22/25 0419 01/22/25 1539 01/23/25 0430 HGB 8.0* 7.4* 7.3* HCT 25.1* 23.9* 23.4* PLT 330 292 345 Recent Labs 01/23/25 0430 INR 2.0* Date INR Dose 01/23 2.0 HOLD 01/22 8.1/3.1 HOLD vitamin K 2.5mg PO 01/21 7.9 Held 01/20 --- Held 01/19 2.7 HOLD Assessment/Plan: 1. INR is therapeutic today after receiving vitamin K yesterday. Holding warfarin for GIB and plan for colonoscopy tomorrow, please notify [facility] when able to resume anticoagulation. 2. Monitor for s/s of bleeding and drug interactions. Will adjust dose accordingly 3. Will facilitate f/u at [facility] upon discharge Fatuma Odonnell RPh, PharmD [facility] is available daily [phone] via [employer] Chat. If no response on [employer] Chat then please page [phone]. Images from the original note were not included. Palliative Care Initial Consult Chief Complaint: Jun Snyder is a 59 y.o. male with chief complaint of dislodged tracheostomy. Palliative Care will follow peripherally, please contact on-call provider for urgent needs Assessment/Plan Goals of care - Jun Snyder's capacity for medical decision-making is questionable. Recommend involving NOK in supporting decisions. - legal surrogate decision maker is children, 3 of them have deferred in past to son Omar. Patient states he would want Omar to make decisions, as well as significant other Toma. He would like to fill out HCPOA paperwork. Contacted social work for assistance. - goals of care include: 1) to continue current management, continue with aggressive medical therapy, procedures, antibiotics at this time - discussed code status and previous documentation of DNR CCA. He states this is wrong and he would want all aggressive measures done at this time, including CPR. - spoke to son on phone, agrees with current plan and therapy. Emotional support provided. 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 in 09/2024 - coumadin held due to bleeding and supratherapeutic levels Chronic respiratory failure s/p tracheostomy Tracheostomy dislodgement - has been saturating well without trach on RA so has not been replaced Palliative Care Encounter -Code Status: Full Code - Ongoing counseling of patient and family regarding diagnoses of sacral wound, GI bleeding, Determining prognosis in serious illness of sacral wound, gi bleeding PC Time Stamp: Total of 85 minutes spent on this encounter including Chart review, Patient visit and exam, Documentation in EHR, Care coordination, Communicating with primary attending or other consultants, Obtaining and/or reviewing separately obtained history, and Counseling and educating patient/family/caregiver. Discharge planning: Not ready for discharge due to ongoing medical work-up/critical illness Patient meets criteria for general inpatient hospice care: No Palliative Care IDT members involved: Palliative Care Physician Internist Discussed the plan of care with the other interdisciplinary team (IDT) members of the Palliative Care and Hospice teams and Patient. Tex Cotto MD Subjective: Subjective/Events Mr. Jun Snyder is a 59 year old male with a complicated history. On chart review: 10/12/24: s/p AVR (23mm [facility] mechanical), YG with Dr. Montemayor 10/14/24: s/p PEA Arrest Hypovolemic Shock Code Intubated, EGD, GDA Embolization D1 10/15/24: L subclavian transvenous pacer placement 10/18/24: Extubated; reintubated 10/19/24 10/24/24: Extubated 11/01/24: Code Blue PEA arrest, re intubated started on CRRT 11/14/24: s/p Trach and Peg with Dr. Ramirez 11/16/24: OR for diagnostic laparoscopy, EGD, abhishek gastrostomy tube placement -- noted to have bile peritonitis 11/28/24: transferred to [facility] He ended up developing sacral ulcer and osteomyelitis at [facility] He then ended up dislodging his tracheostomy, and was brought to [facility] ED for further care. Palliative care consulted for goals of care. 01/22/2025 - Introduced the palliative care service to the patient and/or family. Discussed that we see patients with serious illnesses. Our role is to assist with pain and symptom management and to support the patient and family to promote quality of life. We at times also assist in discussions regarding goals of care and clinical decisions. Met with patient at bedside. No family present. Discussed why he is here in hospital. He states that his trach dislodged. I did ask I'm about his sacral wound and he states that is cleared up. He did remember that he was having bleeding from rectum. I did discuss with him everything he has been through over the last several months, with being in [facility] and now back into the hospital. I asked him if he was ok with everything going on, and if he was wanting to continue with aggressive medical therapy. He states that he is ok with it. He states he is ok with further procedures and testing. I did discuss concerns about his sacral wound being very severe, and discussed concerns that it may not heal. He did ask if it could just be sutured closed after it is not infected and I said that it cannot. I shared my concerns that it may not ever heal, and that when the infection is cleared, it is possible it can get re infected. He states he didn't think about that. He does state at this time he wants to continue with current treatment. I also brought up code status, he had a DNR CCA listed in chart from November. He states this is no longer true, and he would want CPR if necessary. Additionally discussed HCPOA. He states he would want his son Omar and significant other Toma to make decisions for him. He is willing to fill out HCPOA paperwork. Also discussed with son on phone. Discussed HCPOA status. Discussed sacral wound and the size prior to going to [facility]. Discussed current treatment of this, including antibiotics. Also discussed GIB and current GI recommendations. Also discussed current goals, and states goal is to continue current management. Pain Assessment - 5 Location: sacrum, chest Description: aching and sharp Frequency:Daily Duration: day(s) Alleviating Factors: pain medication Exacerbating Factors: unable to associate with any factor Effect:Change in Function and Interference with Activities Advance Care Planning Advanced Care Planning Conversation Pertinent Diagnosis/es: Sacral wound, GI bleeding The patient and/or surrogate consented to a voluntary Advance Care Planning conversation. Jun Snyder's capacity for medical decision-making is questionable. Recommend involving NOK in supporting decisions. Individuals present included: Patient. Summary of the conversation: Discussed trach dislodgement, GIB, sacral wound. Discussed code status Outcome of the conversation: Decision to remain full code and continue all aggressive care Advance Directives were explained including HCPOA, Living Will and/or DNR. This is the first significant conversation I have had with this patient about advanced care planning. I spent 20 minutes providing separately identifiable ACP services with the patient and/or surrogate decision maker in a voluntary conversation discussing the patient's goals, values, and preferences as detailed in the note above. Tex Cotto MD Palliative Care Assessments: Goals of care: Continue Current Management Advanced Directives: No Known Advance Directive Functional Assessment: PPS 40% mainly in bed; can't do any work/extensive disease; mainly assistance; normal or reduced intake; full or drowsy or confusion Prognosis: uncertain at this time Spiritual Assessment: No spiritual distress identified Bereavement and Grief: Low Risk Bereavement PDMP/OARRS Reviewed: Yes-reviewed Social history: Marital status: single Children: 4 adult child(rocky) Living status: SNF Work history: unknown Jean status: unknown Bahai annette: Non-Oriental Orthodox ROS: See palliative care ROS/ESAS below; All other systems were reviewed and are negative. Reynolds Symptom Assessment Score Reynolds Score Pain Score (if non-verbal, add .FLACC below) 5 Tiredness Score 0 Nausea Score 0 Depression Score 0 Anxiety Score 0 Drowsiness Score 0 Anorexia Score (0= eating well, 10= not eating) 10 Wellbeing Score (10= worst sense of well-being) 5 Constipation 0 Dyspnea Score (0= no shortness of breath) 0 Family Meeting: Participants: patient Family meeting was held to discuss:Diagnosis and Prognosis, Goals of Care, Treatment Options, and Symptom Management Past Medical History: Diagnosis Date Acute renal failure (ARF) ([facility]) 10/19/2019 Anemia 12/30/2021 Calcification of abdominal aorta ([facility]) 10/08/202309/[address] abd Diverticulosis 10/08/2023 ESRD on hemodialysis ([facility]) ([facility]) 10/26/2019 Hemodialysis patient ([facility]) ([facility]) HTN (hypertension) 12/01/2022 Hypertension IgA nephropathy 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 10/26/2019 Missed vaccination due to patient refusal 10/08/2023 Has a number of non-scientific based beliefs which interfere with his understanding and acceptance of the medical benefit of vaccination. Nonrheumatic aortic valve stenosis 10/08/2023 Paroxysmal A-fib ([facility]) ([facility]) 08/18/2023 Tobacco abuse 10/08/2023 Past Surgical History: Procedure Laterality Date APPENDECTOMY CARDIAC CATHETERIZATION N/A 10/09/2024 Performed by Bob Watson MD at [facility] Cardiac Cath/EP Lab CARDIAC CATHETERIZATION Bilateral 11/01/2024 Performed by Bob Watson MD at [facility] Cardiac Cath/EP Lab CARDIAC CATHETERIZATION N/A 11/01/2024 Performed by Bob Watson MD at [facility] Cardiac Cath/EP Lab FISTULAGRAM (HISTORICAL) Left 09/15/2021 LEFT UPPER ARM HX AV FISTULA CREATION IR EMBOLIZATION 10/14/2024 IR EMBOLIZATION 10/14/2024 [facility] SPECIAL PROCEDURES IR FISTULAGRAM 08/07/2022 IR FISTULAGRAM 08/07/2022 [facility] IR IMAGING TONSILLECTOMY (HISTORICAL) Family History Problem Relation Name Age of Onset No Known Problems Mother No Known Problems Father Unable to obtain family history due to N/A- family history available Allergies Allergen Reactions Lisinopril Swelling and Angioedema Objective: BP 120/66 Pulse 96 Temp 37.1 C (98.7 F) Resp 13 Ht 1.778 m (5' 10) Wt 58.9 kg (129 lb 13.6 oz) SpO2 99% BMI 18.63 kg/m Physical Exam Vitals reviewed. HENT: Mouth/Throat: Mouth: Mucous membranes are moist. Eyes: General: No scleral icterus. Extraocular Movements: Extraocular movements intact. Neck: Comments: Previous trach tract without drainage Cardiovascular: Rate and Rhythm: Normal rate and regular rhythm. Pulses: Normal pulses. Pulmonary: Effort: Pulmonary effort is normal. Breath sounds: Normal breath sounds. Abdominal: General: Abdomen is flat. Palpations: Abdomen is soft. Tenderness: There is no abdominal tenderness. Comments: PEG tube in place Musculoskeletal: General: No swelling. Comments: Necrotic toes 1-3 on left foot, foot is warm with strong pulse, no erythema Skin: Coloration: Skin is not pale. Neurological: Mental Status: He is alert. Comments: Alert and oriented, answering questions appropriately, moving all four extremities Psychiatric: Comments: calm Medication information: 24-hour PRN meds received: reviewed Results/Verification of Data Review Objective data reviewed (must include dates reviewed for labs, imaging reports and other specialty notes): Data in Support of Terminal Illness: Is patient hospice appropriate? TBD Transition Note Initiated: yes Tex Cotto MD [facility] Anticoagulation Management Service ([facility]) Inpatient Warfarin Consult HPI: Jun Snyder is a 59 y.o. male admitted on 01/19/2025 for Complication of tracheostomy (CMS/HCC) ([facility]) [J95.00] Past Medical History: Diagnosis Date Acute renal failure (ARF) ([facility]) 10/19/2019 Anemia 12/30/2021 Calcification of abdominal aorta ([facility]) 10/08/202309/[address] abd Diverticulosis 10/08/2023 ESRD on hemodialysis ([facility]) ([facility]) 10/26/2019 Hemodialysis patient ([facility]) ([facility]) HTN (hypertension) 12/01/2022 Hypertension IgA nephropathy 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 10/26/2019 Missed vaccination due to patient refusal 10/08/2023 Has a number of non-scientific based beliefs which interfere with his understanding and acceptance of the medical benefit of vaccination. Nonrheumatic aortic valve stenosis 10/08/2023 Paroxysmal A-fib ([facility]) ([facility]) 08/18/2023 Tobacco abuse 10/08/2023 Patient is on warfarin for Afib, mechanical AVR and has a goal INR 2.0 - 3.0. Warfarin is currently managed by facility, has yet to be seen by [facility]. Pt's home dose of warfarin is not yet established, managed by facility. S/sx of bleeding= GIB, anemia Interacting medications= Labs: Recent Labs 01/21/25 0243 01/21/25 0908 01/21/25 1452 01/21/25 2348 01/22/25 0419 HGB 8.3* 8.0* 7.1* 7.7* 8.0* HCT 27.3* 25.3* 22.4* 24.5* 25.1* PLT 365 353 -- -- 330 Recent Labs 01/21/25 2348 INR 8.1* Date INR Dose 01/22 8.1 HOLD vitamin K 2.5mg PO 01/21 7.9 Held 01/20 --- Held 01/19 2.7 HOLD Assessment/Plan: 1. Significantly supratherapeutic INR today. Vitamin K 2.5mg PO given this morning. Holding warfarin for possible GIB and elevated INR, please notify [facility] when able to resume anticoagulation. 2. Monitor for s/s of bleeding and drug interactions. Will adjust dose accordingly 3. Will facilitate f/u at [facility] upon discharge Fatuma Odonnell RPh, PharmD [facility] is available daily [phone] via [employer] Chat. If no response on [employer] Chat then please page [phone]. [employer] Anticoagulation Management Service ([facility]) Inpatient Warfarin Consult HPI: Jun Snyder is a 59 y.o. male admitted on 01/19/2025 for Complication of tracheostomy ([facility]) ([facility]) [J95.00] Past Medical History: Diagnosis Date Acute renal failure (ARF) ([facility]) 10/19/2019 Anemia 12/30/2021 Calcification of abdominal aorta ([facility]) 10/08/202309/[address] abd Diverticulosis 10/08/2023 ESRD on hemodialysis ([facility]) ([facility]) 10/26/2019 Hemodialysis patient ([facility]) ([facility]) HTN (hypertension) 12/01/2022 Hypertension IgA nephropathy 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 10/26/2019 Missed vaccination due to patient refusal 10/08/2023 Has a number of non-scientific based beliefs which interfere with his understanding and acceptance of the medical benefit of vaccination. Nonrheumatic aortic valve stenosis 10/08/2023 Paroxysmal A-fib ([facility]) ([facility]) 08/18/2023 Tobacco abuse 10/08/2023 Patient is on warfarin for Afib, mechanical AVR and has a goal INR 2.0 - 3.0. Warfarin is currently managed by facility, has yet to be seen by [facility]. Pt's home dose of warfarin is not yet established, managed by facility. S/sx of bleeding= GIB, anemia Interacting medications= Labs: Recent Labs 01/20/25 0514 01/20/25 0801 01/20/25 1829 01/21/25 0243 01/21/25 0908 HGB 6.6* < > 8.3* 8.3* 8.0* HCT 21.3* < > 25.8* 27.3* 25.3* PLT 279 -- -- 365 353 < > = values in this interval not displayed. Recent Labs 01/19/25 0652 INR 2.7* Date INR Dose 01/19 2.7 HOLD Assessment/Plan: 1. Therapeutic INR on admission. Holding warfarin for GIB, please notify [facility] when able to resume anticoagulation. 2. Monitor for s/s of bleeding and drug interactions. Will adjust dose accordingly 3. Will facilitate f/u at [facility] upon discharge Darryn Wagner RPhNatali is available daily [phone] via [employer]. If no response on [employer] Chat then please page [phone]. Associated Order(s): IP CONSULT TO GENERAL SURGERY Images from the original note were not included. Department of General Surgery Surgical Service - ACS Resident Consult Note 01/21/2025 CHIEF COMPLAINT: Chief Complaint Patient presents with Tracheostomy Tube Change Reason for Consult: Bleeding Sacral wound HISTORY OF PRESENT ILLNESS: Jun Snyder is a 59 y.o. male with significant past history of acute respiratory failure and trach dependence, HTN, a-fib, occipital ICH, acute renal failure (HD), s/p trach and PEG and Dx lap in October 2024 who presents after tracheostomy dislodgement. Surgery was consulted for evaluation of bleeding sacral wound. Patient denies pain related to the sacral wound at time of evaluation. Patient unsure how long wound has been present. Per chart review, first documented image of the sacral pressure injury was on 11/28/24. On evaluation patient was afebrile and hemodynamically stable.. Labs reviewed significant for: WBC 9.2, hgb 8 (8.3), Cr 2.99, phos 5.3 . CTA abdomen and pelvis on 01/20 to assess for GI bleed demonstrated no intraluminal IV contrast. EGD this AM demonstrated a non-bleeding duodenal ulcer. Past Medical History: Diagnosis Date Acute renal failure (ARF) ([facility]) 10/19/2019 Anemia 12/30/2021 Calcification of abdominal aorta ([facility]) 10/08/202309/[address] abd Diverticulosis 10/08/2023 ESRD on hemodialysis ([facility]) ([facility]) 10/26/2019 Hemodialysis patient ([facility]) ([facility]) HTN (hypertension) 12/01/2022 Hypertension IgA nephropathy 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 10/26/2019 Missed vaccination due to patient refusal 10/08/2023 Has a number of non-scientific based beliefs which interfere with his understanding and acceptance of the medical benefit of vaccination. Nonrheumatic aortic valve stenosis 10/08/2023 Paroxysmal A-fib ([facility]) ([facility]) 08/18/2023 Tobacco abuse 10/08/2023 Past Surgical History: Procedure Laterality Date APPENDECTOMY CARDIAC CATHETERIZATION N/A 10/09/2024 Performed by Bob Watson MD at [facility] Cardiac Cath/EP Lab CARDIAC CATHETERIZATION Bilateral 11/01/2024 Performed by Bob Watson MD at [facility] Cardiac Cath/EP Lab CARDIAC CATHETERIZATION N/A 11/01/2024 Performed by Bob Watson MD at [facility] Cardiac Cath/EP Lab FISTULAGRAM (HISTORICAL) Left 09/15/2021 LEFT UPPER ARM HX AV FISTULA CREATION IR EMBOLIZATION 10/14/2024 IR EMBOLIZATION 10/14/2024 [facility] SPECIAL PROCEDURES IR FISTULAGRAM 08/07/2022 IR FISTULAGRAM 08/07/2022 [facility] IR IMAGING TONSILLECTOMY (HISTORICAL) Medications Prior to Admission: Current Facility-Administered Medications Medication Dose Route Frequency Provider Last Rate Last Admin acetaminophen (Tylenol) tablet 1,000 mg 1,000 mg Oral q8h PRN Steve Lassiter MD 1,000 mg at 01/19/25 1540 ampicillin-sulbactam (Unasyn) 3,000 mg in sodium chloride 0.9 % 100 mL IVPB (Add-Reynolds) 3,000 mg IntraVENous q12h Steve Lassiter MD Stopped at 01/21/25 0441 collagenase 250 UNIT/GM ointment Topical PRN Steve Lassiter MD Given at 01/21/25 1339 collagenase 250 UNIT/GM ointment Topical Daily Steve Lassiter MD Given at 01/21/25 0857 dextrose 5 % infusion 100 mL/hr IntraVENous PRN Minor Collier MD 100 mL/hr at 01/21/25 0636 100 mL/hr at 01/21/25 0636 dextrose 50 % solution 12.5 g 12.5 g IntraVENous PRN Minor Collier MD 12.5 g at 01/21/25 0616 glucagon (human recombinant) injection 1 mg 1 mg IntraMUSCular PRN Minor Collier MD glucose oral gel 15 g 15 g Oral PRN Minor Collier MD ipratropium-albuterol (Duo-Neb) 0.5-2.5 mg/3 mL nebulizer solution 3 mL 3 mL Nebulization q8h Steve Lassiter MD 3 mL at 01/21/25 1605 ketamine (Ketalar) injection 100 mg 100 mg IntraVENous Once Bipin Maldonado MD Lidocaine 4 % patch 1 patch 1 patch Topical Daily Steve Lassiter MD 1 patch at 01/21/25 0854 melatonin tablet 5 mg 5 mg Per G Tube Nightly PRN Steve Lassiter MD [Held by provider] metoprolol tartrate (Lopressor) tablet 25 mg 25 mg Per G Tube BID Steve Lassiter MD 25 mg at 01/19/25 0916 midodrine (Proamatine) tablet 15 mg 15 mg Per G Tube q6h Steve Lassiter MD 15 mg at 01/21/25 1441 mupirocin (Bactroban) 2 % ointment 1 Application 1 Application Nasal BID Steve Lassiter MD 1 Application at 01/19/25 2100 naloxone (Narcan) injection 0.4 mg 0.4 mg IntraVENous q5 min PRN Steve Lassiter MD ondansetron ODT (Zofran-ODT) disintegrating tablet 4 mg 4 mg Oral q8h PRN Steve Lassiter MD Or ondansetron (Zofran) injection 4 mg 4 mg IntraVENous q6h PRN Steve Lassiter MD oxyCODONE (Roxicodone) immediate release tablet 2.5 mg 2.5 mg Oral q6h PRN Steve Lassiter MD 2.5 mg at 01/20/25 2206 Or oxyCODONE (Roxicodone) immediate release tablet 5 mg 5 mg Oral q4h PRN Steve Lassiter MD 5 mg at 01/21/25 1441 pantoprazole (ProtoNix) 40 mg in sodium chloride (PF) 0.9 % 10 mL injection 40 mg IntraVENous BID Chantell Hill DO Phenylephrine HCl (Pressors) 1 MG/10ML injection - Pyxis ADS Override Pull [Held by provider] warfarin (Coumadin) tablet 2 mg 2 mg Oral Daily Steve Lassiter MD Allergies: Lisinopril Social History Socioeconomic History Marital status: Tobacco Use Smoking status: Every Day Current packs/day: 1.00 Average packs/day: 1.4 packs/day for 31.2 years (45.0 ttl pk-yrs) Types: Cigarettes Start date: 1993 Passive exposure: Past Smokeless tobacco: Never Tobacco comments: Started at 28, 3 PPD, tapered down to 1 PPD in 2020 after quitting drinking. 10/27/24 Vaping Use Vaping status: Never Used Substance and Sexual Activity Alcohol use: Not Currently Drug use: Never Social Drivers of Health Financial Resource Strain: Patient Unable To Answer (12/01/2024) Received from [facility] Overall Financial Resource Strain (CARDIA) Difficulty of Paying Living Expenses: Patient unable to answer Food Insecurity: Patient Unable To Answer (12/01/2024) Received from [facility] Hunger Vital Sign Worried About Running Out of Food in the Last Year: Patient unable to answer Ran Out of Food in the Last Year: Patient unable to answer Transportation Needs: No Transportation Needs (01/18/2025) Received from [facility] SDOH Transportation Source Has lack of transportation kept you from medical appointments or from getting medications?: No Has lack of transportation kept you from meetings, work, or from getting things needed for daily living?: No Stress: No Stress Concern Present (01/18/2025) Received from [facility] of Occupational Health - Occupational Stress Questionnaire Feeling of Stress : Not at all Social Connections: Patient Unable To Answer (12/01/2024) Received from [facility] Social Connection and Isolation Panel [NHANES] Frequency of Communication with Friends and Family: Patient unable to answer Frequency of Social Gatherings with Friends and Family: Patient unable to answer Attends Bahai Services: Patient unable to answer Active Member of Clubs or Organizations: Patient unable to answer Attends Club or Organization Meetings: Patient unable to answer Marital Status: Patient unable to answer Intimate Partner Violence: Patient Unable To Answer (11/28/2024) Received from [facility] Domestic Abuse Assessment Do you feel safe in your relationships at home?: Unable to assess Physical Abuse: Unable to assess Verbal Abuse: Unable to assess Housing Stability: Patient Unable To Answer (12/01/2024) Received from [facility] Housing Stability Vital Sign Unable to Pay for Housing in the Last Year: Patient unable to answer Number of Times Moved in the Last Year: 0 Homeless in the Last Year: Patient unable to answer Family History Problem Relation Name Age of Onset No Known Problems Mother No Known Problems Father REVIEW OF SYSTEMS: Review of Systems Constitutional: Negative for chills and fever. Respiratory: Positive for shortness of breath. Trach dependent Gastrointestinal: Positive for diarrhea. Skin: Positive for wound. PHYSICAL EXAM: Vitals: 01/21/25 1606 BP: Pulse: 84 Resp: 16 Temp: SpO2: 96% I/O last 3 completed shifts: In: 550 (9.3 mL/kg) [I.V.:400 (6.8 mL/kg); NG/GT:150] Out: - (0 mL/kg) Weight: 58.9 kg CONSTITUTIONAL: awake, alert, cooperative, no apparent distress HEENT: No scleral icterus, EOMI NECK: Supple, no thyromegaly LUNGS: No increased work of breathing, good air exchange CARDIOVASCULAR: Well perfused, RRR ABDOMEN: Soft, non-distended, non-tender, maroon diarrhea during exam GENITAL/URINARY: Not examined MUSCULOSKELETAL: There is no redness, warmth, or swelling of the joints. Full range of motion noted. NEUROLOGIC: Awake, alert, oriented to name, place and time. SKIN: Large sacral wound with significant amount of clotted blood, no obvious site of bleeding. normal skin color, texture, no redness, warmth, or swelling DATA: CBC: Lab Results Component Value Date WBC 9.2 01/21/2025 RBC 2.89 (L) 01/21/2025 HGB 7.1 (L) 01/21/2025 HCT 22.4 (L) 01/21/2025 MCV 87.5 01/21/2025 MCH 27.7 01/21/2025 MCHC 31.6 01/21/2025 RDW 18.6 (H) 01/21/2025 PLT 353 01/21/2025 MPV 9.1 01/21/2025 BMP: Lab Results Component Value Date NA 135 (L) 01/21/2025 K 4.3 01/21/2025 CL 96 (L) 01/21/2025 CO2 24 01/21/2025 BUN 46 (H) 01/21/2025 CREATININE 2.99 (H) 01/21/2025 CALCIUM 9.9 01/21/2025 GLUCOSE 60 (L) 01/21/2025 Hepatic Function Panel: No results found for: ALKPHOS, ALT, AST, PROT, BILITOT, BILIDIR PT/INR: Lab Results Component Value Date PROTIME 73.5 (H) 01/21/2025 INR 7.9 (HH) 01/21/2025 Troponin: No results found for: TROPONINI LIPASE: No results found for: LIPASE IMAGING: POCT glucose meter Performed by: [facility] [place] [facility], [address] [place] [address], [place] [address] CLIA ID: [id number] POCT glucose meter Performed by: [facility] [place] [facility], [address] [place] [address], [place] [address] CLIA ID: [id number] POCT glucose meter Performed by: [facility] [place] [facility], [address] [place] [address], [place] [address] CLIA ID: [id number] POCT glucose meter Performed by: [facility] [place] [facility], [address] [place] [address] [place] [address] CLIA ID: [id number] POCT glucose meter Performed by: [facility] [place] [facility], [address] [place] [address], [place] [address] CLIA ID: [id number] POCT glucose meter Performed by: [facility] [place] [facility], [address] [place] [address], [place] [address] CLIA ID: [id number] ASSESSMENT AND PLAN: Jun Snyder is a 59 y.o. male that presents with large sacral wound with blood clots, no active bleeding. - No acute surgical intervention - Wet to dry packing of sacral wound - Consult wound care for wound vac placement - Rest of care per primary - Surgery will continue to follow Patient discussed with attending, Dr. Brush. Brenton Goldstein MD General Surgery PGY-1 Pager #[phone] Cosigned by Tex Brush MD at 01/22/2025 6:07 AM EDT Associated attestation - Tex Brush MD - 01/22/2025 6:07 AM EDT ATTENDING ADDENDUM Active Diagnoses/Problems this Admission: Patient Active Problem List Diagnosis Anemia Paroxysmal A-fib (CMS/HCC) (HCC) HTN (hypertension) ESRD on hemodialysis (CMS/HCC) (HCC) 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 Diverticulosis Nonrheumatic aortic valve stenosis Calcification of abdominal aorta (HCC) Missed vaccination due to patient refusal Tobacco abuse Alcohol use disorder in remission Atrial flutter, unspecified type (HCC) RSV (acute bronchiolitis due to respiratory syncytial virus) Aortic stenosis Upper GI bleed S/P AVR Acute hypoxic respiratory failure (HCC) Acute encephalopathy Pneumoperitoneum Gastric ulceration Severe malnutrition (CMS/HCC) (HCC) Pleural effusion Peritonitis due to fungus (HCC) History of abdominal surgery Leg DVT (deep venous thromboembolism), acute, left (HCC) 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, 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) 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HCC) Leukocytosis Decubitus ulcer of sacral region, unstageable (HCC) Pneumonia of both lungs due to methicillin susceptible Staphylococcus aureus (MSSA) (HCC) Sacral osteomyelitis (CMS/HCC) (HCC) Acute respiratory failure with hypoxia ([facility]) [J96.01] Tracheostomy care ([facility]) [Z43.0] 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[facility]) rn long term care (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 Complication of tracheostomy (CMS/HCC) ([facility]) I personally supervised the resident physician in the evaluation and development of a treatment plan for this patient on the same day of service as above. I personally discussed the review of systems and interviewed the patient along with performing a physical examination. I reviewed the recent events, imaging, labs, vital signs. In addition, I discussed the patient's condition and treatment options with him/her when possible. I have also reviewed and agree with the past medical, family, and social history unless otherwise noted. All of the patient's questions were answered and family updated when appropriate and possible. A complete review of systems was obtained and is negative except as stated in HPI and/or Subjective Section. CHIEF COMPLAINT: sacral decubitus wound PLAN: - as per Dr. Goldstein's note - I evaluated pt on 01/21/25 - 59M w/ PMH/PSH as below, currently in MICU for evaluation of GI bleed, found to have bleeding sacral ulcer, surgery consulted for evaluation - EGD this AM showed non-bleeding duodenal ulcer, GI managing - sacral wound dressing taken down with old blood clots removed, no active bleeding noted - recommend wet-to-dry dressings, wound care - if wound remains hemostatic, would be amenable to wound VAC Level of Medical Decision Making: []High [x]Moderate []Low Complexity: Acute illness with systemic symptoms (MOD) Risk: Prescription drug management (MOD) Personally Reviewed/Independently interpreted patient's: [x]Epic notes [x]Radiology studies [x]Labs []EKG []Ordering tests []Other Discussed/ With: [x]Patient/Family [x]RN []Consultants []Primary []SW/TCC []Other I spent total time of 60 minutes reviewing previous notes, test results, and face to face with Jun Snyder discussing the diagnosis and importance of compliance with the treatment plan as well as documenting on the day of the visit. Time was spent, Reviewing medical record including recent tests and results Ordering prescription medications/tests and procedures Communicating results to the patient/family/caregiver Counseling/educating the patient/family/caregiver Documenting clinical information the patient's electronic record Coordination of care for the patient Performing a medical appropriate exam and evaluation Tex Brush MD, FACS Trauma, Surgical Critical Care & Acute Care Surgery Division of Trauma Department of Surgery [facility] Images from the original note were not included. Internal Medicine: MICU Initial Consult Name: Jun Snyder : 1965(59 y.o.) Date: 01/21/25 Attending: Dr. Weiss Subjective: Chief Complaint: Rectal bleeding HPI: Patient is a 59 year old male with PMHx Trach (s/p removal) and peg, HTN, paroxysmal a-fib, R occipital ICH, tobacco use, ESRD - dialysis (TTS; LUE AVF), diverticulosis, IgA nephropathy, severe who was admitted to [facility] 01/19 due to trach dislodgement. Since patient was able to saturate well on room air, trach was left out. Later on during hospitalization, patient was noted to have multiple episodes of rectal bleeding (two overnight and another episode this morning). CTA abdomen/pelvis on 01/20 negative for source of GI bleed. ICU was consulted today for transfer for bedside EGD when patient had another episode of rectal bleeding this morning. When patient was evaluated by ICU, he had just been cleaned up following an episode of rectal bleeding. He complained of chronic chest pain and SOB. He reported feeling lightheaded. The patient is in agreement with transfer to ICU for emergent scope. Objective: VITALS: BP 106/55 Pulse 87 Temp 36.5 C (97.7 F) (Temporal) Resp 16 Ht 1.778 m (5' 10) Wt 58.9 kg (129 lb 13.6 oz) SpO2 95% BMI 18.63 kg/m CURRENT PULSE OXIMETRY: SpO2: 95 % Review of Systems Constitutional: Negative for chills and fever. Respiratory: Positive for shortness of breath. Negative for cough. Cardiovascular: Positive for chest pain. Negative for palpitations and leg swelling. Gastrointestinal: Positive for blood in stool and diarrhea. Negative for abdominal pain, constipation and vomiting. Neurological: Positive for weakness and light-headedness. Negative for headaches. Psychiatric/Behavioral: Negative for agitation and confusion. Constitutional: General Appearance [x]WDWN []Obese []Cachectic []Thin []Ill Eyes: Inspection of Pupils/Irises Pupils round and react: [x]Yes []No Sclera: []Icteric [x]Non-Icteric Inspection of Conjunctiva/Lids Conjunctiva: []Injected [x]Non-Injected Lids: [x]Intact []Lesion Present ENT/Mouth: External Inspection of ears/nose [x] Normal [] Scar/Lesion/Mass Inspection of teeth/lips/gums Dentition: [][place] Teeth []Dentures Lips/Gums: [x]Intact []Lesion Present Mucosa: [x][place] []Moist [x]Dry Neck: External Appearance Overall Appearance: [x]Normal []Lesion/Mass/Crepitus Present Trachea midline: []Yes []No Thyroid []Normal []Enlarged []Tender []Mass []Absent Respiratory: Respiratory effort []Labored [x]Non-Labored [] Mechanically-Ventilated Auscultation [x]Clear []Crackles []Wheezes [][place]honchi Cardiovascular: Auscultation Rate: [x]Regular []Irregular []Tachycardia []Bradycardia Rhythm: [x]Regular []Irregular Murmur: []Present [x]Absent Extremities Peripheral Edema: []Present [x]Absent Varicosities: []Present [x]Absent Gastrointestinal: Abdomen Palpation: [x]Soft []Firm []Tender [x]Non-Tender []Distended [x]Non-distended Mass: []Present [x]Absent Bowel Sounds: [x]Present []Absent Hernia: []Present [x]Absent Liver/Spleen: []Hepatosplenomegaly []Organomegaly Absent Musculoskeletal: Inspection of Digits and Nails Cyanosis: []Present [x]Absent Clubbing: []Present [x]Absent Ischemia: []Present [x]Absent Infection: []Present [x]Absent Extremities GUAN Equally: Except ([]RUE []RLE []LUE []LLE) Strength/Tone: Intact and Normal ([x]RUE [x]RLE [x]LUE [x]LLE) Skin: Inspection [x]Normal []Rash []Lesion []Ulcer Palpation [x]Warm []Cool [x]Dry []Clammy []Nodules []Induration []Skin-tightening Cap-Refill: [] <3 sec [] >3 seconds (delayed) Neurologic: GCS EYE: 4 - Opens spontaneously GCS MOTOR: 6 - Obeys commands for movement GCS VERBAL: 5 - Oriented to person, place, time Total GCS: 15 [x] Sensation grossly intact Psych: Mental Status Alert: [x]Yes [] No Oriented: Awake and alert Mood/Affect []Normal []Flat []Agitated []Depressed []Anxious [x]Calm []Sedated []NAD Assessment and Plan: Principal Problem: Complication of tracheostomy (CMS/HCC) ([facility]) Active Problems: Severe malnutrition (CMS/HCC) ([facility]) Assessment: Rectal bleeding with concern for GIB Acute on chronic normocytic anemia ESRD on HD with chronic hypotension H/o mechanical AVR 09/2024 complicated by GIB requiring GDA embolization (10/16/24) Chronic hypoxemic respiratory s/p trach (no longer in use) Stage V sacral wound with active bleeding Necrotic left toes Plan: Transfer to T3 for bedside EGD Monitor Hgb Q8H and transfuse for Hgb <7 or symptomatic Switch Protonix gtt to BID IV Hold Coumadin and metoprolol General surgery consult for stave V sacral wound Continue Unasyn for soft tissue infection (started previously) Wound care following Nephrology following for HD MWF Continue rest of management as before Patient's son updated on transfer GI Prophylaxis: Pantoprazole IV DVT [facility] BMI Classification: Body mass index is 18.63 kg/m . normal BMI 18.5-24.9 Disposition: Transfer to ICU Critical Care Time: 30 minutes Total critical care time caring for this patient with life threatening, unstable organ failure, including direct patient contact, management of life support systems, review of data including imaging and labs, discussions with other team members and physicians, excluding procedures. Cosigned by Quiana Jeffery DO at 01/21/2025 3:21 PM EDT Associated attestation - Quiana Jeffery DO - 01/21/2025 3:21 PM EDT Attestation signed by Quiana Jeffery DO at 01/21/2025 2:43 PM I have personally performed a [id number] diagnostic evaluation on this patient on date of service 01/21/2025. History, labs, imaging studies, and electronic medical record have been reviewed by me. This note documented by the [x]house mover supervisor []ARMIN reflects my history, exam, and medical decision making. I have reviewed and agree with the care plan. Changes were made in the orders as necessary. ROS documentation was reviewed and negative unless otherwise stated in HPI. Additional pertinent interval history, ROS, and physical exam findings: Mr Snyder is a 59 year old male who presented to [facility] 01/19 after inadvertent removal of his tracheostomy. He was transferred to [facility] ICU for surgical evaluation. On arrival he was maintaining appropriate O2 saturations on room air and the decision was made to leave the tracheostomy out. Able to be transferred out of ICU later that day. On 01/20 critical care and GI were consulted due to rectal bleeding. At that time patient determined to be stable to remain on GMF. This morning our team was contacted by GI to transfer the patient to the unit for EGD. At the time it was noted that patient's sacral wound was bleeding significantly. On examination the patient is resting comfortably, in no acute distress. 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 Associated Order(s): INPATIENT CONSULT TO CRITICAL CARE - MEDICAL TEAM Images from the original note were not included. Internal Medicine: MICU Initial Consult Name: Jun Snyder : 1965(59 y.o.) Date: 01/20/25 Attending: Dr. Ibarra Subjective: Chief Complaint: Bright red blood per rectum HPI: Jair Snyder is a 59 year old male with a PMHx of ESRD on dialysis (TTS; LUE AVF), diverticulosis, IgA nephropathy, hypertension, aortic valve replacement ([place] mechanical 09/2024), status post PEA arrest with hypovolemic shock, EGD, subsequent GDA embolization to D1 10/16/2024, status post trach and PEG placement 11/14/2024, 11/16/2024 OR for diagnostic laparoscopy, EGD and Abhishek gastrostomy tube placement, who presented to [facility] on 01/19/25 as a transfer from [facility] Per patient, was trying to disconnect his vent to transfer to another room but accidentally pulled out his tracheostomy. This event happened approximately 45 minutes before ED arrival. ED attempted to place tracheostomy tube back but were unsuccessful. Decision was made to transfer patient to [facility] ICU for further airway management and determine if replacement tracheostomy is needed. Patient was admitted to the MICU-01/19 where he was evaluated by general surgery for re-do tracheostomy and determined to be saturating appropriately on room air without need for re-placement. Patient was transferred out of the MICU for potential discharge back to [facility] facility. The MICU is consulted now for BRBPR, patient was said to be passing thick clotted blood which was bright red in appearance per RN. A hemoglobin check at that time was 6.6 a recheck 3hrs later showed a hemoglobin of 8.2 and a recheck shortly after the patient was seen on consult showed a hemoglobin of 8.2. On evaluation of the patient he is resting comfortably in bed, he does not have any complaints at this time, he denies any fever, nausea or vomiting, he denies constipation or diarrhea and his vital signs are stable. A CTA-angiogram abdomen/pelvis w/wo contrast is pending at this time. Past Medical History: Diagnosis Date Acute renal failure (ARF) ([facility]) 10/19/2019 Anemia 12/30/2021 Calcification of abdominal aorta ([facility]) 10/08/202309/[address] abd Diverticulosis 10/08/2023 ESRD on hemodialysis ([facility]) ([facility]) 10/26/2019 Hemodialysis patient ([facility]) ([facility]) HTN (hypertension) 12/01/2022 Hypertension IgA nephropathy 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 10/26/2019 Missed vaccination due to patient refusal 10/08/2023 Has a number of non-scientific based beliefs which interfere with his understanding and acceptance of the medical benefit of vaccination. Nonrheumatic aortic valve stenosis 10/08/2023 Paroxysmal A-fib ([facility]) ([facility]) 08/18/2023 Tobacco abuse 10/08/2023 Past Surgical History: Procedure Laterality Date APPENDECTOMY CARDIAC CATHETERIZATION N/A 10/09/2024 Performed by Bob Watson MD at [facility] Cardiac Cath/EP Lab CARDIAC CATHETERIZATION Bilateral 11/01/2024 Performed by Bob Watson MD at [facility] Cardiac Cath/EP Lab CARDIAC CATHETERIZATION N/A 11/01/2024 Performed by Bob Watson MD at [facility] Cardiac Cath/EP Lab FISTULAGRAM (HISTORICAL) Left 09/15/2021 LEFT UPPER ARM HX AV FISTULA CREATION IR EMBOLIZATION 10/14/2024 IR EMBOLIZATION 10/14/2024 [facility] SPECIAL PROCEDURES IR FISTULAGRAM 08/07/2022 IR FISTULAGRAM 08/07/2022 SB IR IMAGING TONSILLECTOMY (HISTORICAL) Family History Problem Relation Name Age of Onset No Known Problems Mother No Known Problems Father Social History Socioeconomic History Marital status: Spouse name: Not on file Number of children: Not on file Years of education: Not on file Highest education level: Not on file Occupational History Not on file Tobacco Use Smoking status: Every Day Current packs/day: 1.00 Average packs/day: 1.4 packs/day for 31.2 years (45.0 ttl pk-yrs) Types: Cigarettes Start date: 1993 Passive exposure: Past Smokeless tobacco: Never Tobacco comments: Started at 28, 3 PPD, tapered down to 1 PPD in 2020 after quitting drinking. 10/27/24 Vaping Use Vaping status: Never Used Substance and Sexual Activity Alcohol use: Not Currently Drug use: Never Sexual activity: Not on file Other Topics Concern Not on file Social History Narrative Not on file Social Drivers of Health Financial Resource Strain: Patient Unable To Answer (12/01/2024) Received from [facility] Overall Financial Resource Strain (CARDIA) Difficulty of Paying Living Expenses: Patient unable to answer Food Insecurity: Patient Unable To Answer (12/01/2024) Received from [facility] Hunger Vital Sign Worried About Running Out of Food in the Last Year: Patient unable to answer Ran Out of Food in the Last Year: Patient unable to answer Transportation Needs: No Transportation Needs (01/18/2025) Received from [facility] Transportation Source Has lack of transportation kept you from medical appointments or from getting medications?: No Has lack of transportation kept you from meetings, work, or from getting things needed for daily living?: No Physical Activity: Not on file Stress: No Stress Concern Present (01/18/2025) Received from [facility] of Occupational Health - Occupational Stress Questionnaire Feeling of Stress : Not at all Social Connections: Patient Unable To Answer (12/01/2024) Received from [facility] Social Connection and Isolation Panel [NHANES] Frequency of Communication with Friends and Family: Patient unable to answer Frequency of Social Gatherings with Friends and Family: Patient unable to answer Attends Bahai Services: Patient unable to answer Active Member of Clubs or Organizations: Patient unable to answer Attends Club or Organization Meetings: Patient unable to answer Marital Status: Patient unable to answer Intimate Partner Violence: Patient Unable To Answer (11/28/2024) Received from [facility] Medical Domestic Abuse Assessment Do you feel safe in your relationships at home?: Unable to assess Physical Abuse: Unable to assess [facility] Domestic Abuse - Type of Abuse: Not on file [facility] Domestic Abuse - Time Frame: Not on file [facility] Domestic Abuse - Signs and Symptoms: Not on file Verbal Abuse: Unable to assess [facility] Domestic Abuse - Reported To: Not on file Housing Stability: Patient Unable To Answer (12/01/2024) Received from [facility] Housing Stability Vital Sign Unable to Pay for Housing in the Last Year: Patient unable to answer Number of Times Moved in the Last Year: 0 Homeless in the Last Year: Patient unable to answer Allergies Allergen Reactions Lisinopril Swelling and Angioedema Prior to Admission medications Medication Sig Start Date End Date Taking? Authorizing Provider epoetin rowan-epbx (Retacrit) 90557 UNIT/ML injection Inject 0.79 mL (7,900 Units) under the skin 1 (one) time per week. 12/04/24 DENIA Girard CNP heparin 100 units/mL in dextrose 5 % infusion Infuse 294.5-1,767 Units/hr into a venous catheter continuous. 11/28/24 DENIA Girard CNP heparin 1000 units/mL injection Infuse 2 mL (2,000 Units) into a venous catheter as needed (heparin dosing algorithm). 11/28/24 DENIA Girard CNP heparin 1000 units/mL injection Infuse 4 mL (4,000 Units) into a venous catheter as needed (per heparin dosing algorithm). 11/28/24 DENIA Girard CNP ipratropium-albuterol (Duo-Neb) 0.5-2.5 mg/3 mL nebulizer solution Take 3 mL by nebulization every 8 hours. 11/28/24 11/28/25 DENIA Girard CNP Lidocaine 4 % patch Apply 1 patch topically daily. 11/29/24 DENIA Girard CNP melatonin 5 MG tablet 1 tablet (5 mg) by Per G Tube route Nightly as needed (insomnia). 11/28/24 DENIA Girard CNP metoprolol tartrate (Lopressor) 25 MG tablet 1 tablet (25 mg) by Per G Tube route 2 times daily. 11/28/24 11/28/25 DENIA Girard CNP midodrine (Proamatine) 5 MG tablet 3 tablets (15 mg) by Per G Tube route every 6 hours. 11/28/24 12/28/24 DENIA Girard CNP pantoprazole (ProtoNix) 40 MG injection Infuse 40 mg into a venous catheter 2 times daily. 11/28/24 DENIA Girard CNP QUEtiapine (SEROquel) 25 MG tablet 1 tablet (25 mg) by Per G Tube route Nightly. 11/28/24 12/28/24 DENIA Girard CNP warfarin (Coumadin) 1 MG tablet Take as directed per After Visit Summary. 11/28/24 DENIA Girard CNP Objective: Oxygen Delivery: VITALS: BP 103/58 Pulse 91 Temp (!) 35.9 C (96.7 F) Resp 16 Ht 5' 10 (1.778 m) Wt 129 lb 13.6 oz (58.9 kg) SpO2 97% BMI 18.63 kg/m CURRENT PULSE OXIMETRY: SpO2: 97 % Review of Systems Constitutional: General Appearance []WDWN []Obese []Cachectic []Thin [x]Ill Eyes: Inspection of Pupils/Irises Pupils round and react: [x]Yes []No Sclera: []Icteric [x]Non-Icteric Inspection of Conjunctiva/Lids Conjunctiva: []Injected [x]Non-Injected Lids: [x]Intact []Lesion Present ENT/Mouth: External Inspection of ears/nose [x] Normal [] Scar/Lesion/Mass Inspection of teeth/lips/gums Dentition: [][place] Teeth []Dentures Lips/Gums: [x]Intact []Lesion Present Mucosa: [x][place] []Moist []Dry Neck: External Appearance Overall Appearance: [x]Normal []Lesion/Mass/Crepitus Present Trachea midline: [x]Yes []No Thyroid [x]Normal []Enlarged []Tender []Mass []Absent Respiratory: Respiratory effort []Labored [x]Non-Labored [] Mechanically-Ventilated Auscultation [x]Clear []Crackles []Wheezes [][place]hon[place] Cardiovascular: Auscultation Rate: [x]Regular []Irregular []Tachycardia []Bradycardia Rhythm: [x]Regular []Irregular Murmur: []Present [x]Absent Extremities Peripheral Edema: []Present []Absent Varicosities: []Present []Absent Gastrointestinal: Abdomen Palpation: [x]Soft []Firm []Tender []Non-Tender []Distended []Non-distended Mass: []Present []Absent Bowel Sounds: [x]Present []Absent Hernia: []Present []Absent Liver/Spleen: []Hepatosplenomegaly []Organomegaly Absent Musculoskeletal: Inspection of Digits and Nails Cyanosis: []Present [x]Absent Clubbing: []Present [x]Absent Ischemia: []Present [x]Absent Infection: []Present [x]Absent Extremities GUAN Equally: Except ([]RUE []RLE []LUE []LLE) Strength/Tone: Intact and Normal ([]RUE []RLE []LUE []LLE) Skin: Inspection []Normal []Rash []Lesion []Ulcer Palpation []Warm []Cool []Dry []Clammy []Nodules []Induration []Skin-tightening Cap-Refill: [] <3 sec [] >3 seconds (delayed) Neurologic: GCS EYE: 4 - Opens spontaneously GCS MOTOR: 6 - Obeys commands for movement GCS VERBAL: 5 - Oriented to person, place, time Total GCS: 15 [] Sensation grossly intact Psych: Mental Status Alert: [x]Yes [] No Oriented: []x0 []X1 []X2 [x]x3 Mood/Affect [x]Normal []Flat []Agitated []Depressed []Anxious []Calm []Sedated []NAD [facility] within last 24 hours- BMP: Recent Labs 01/19/25 03401/20/25 0514 NA 135* 135* K 4.4 4.8 CL 95* 98 CO2 25 22 BUN 80* 91* CREATININE 3.50* 4.31* CALCIUM 10.6* 9.2 MG -- 2.8* PHOS -- 6.1* LFTs: No results for input(s): AST, ALT, PROT, ALBUMIN, BILITOT, BILIRUBINU, ALKPHOS, LIPASE in the last 72 hours. Glucose: Recent Labs 01/19/25 0342 01/20/25 0514 GLUCOSE 85 68* Procal: No results for input(s): PROCAL in the last 72 hours. CBC: Recent Labs 01/19/25 0342 01/19/25 0652 01/20/25 0514 01/20/25 0801 01/20/25 1302 WBC 11.6* 10.9* 10.5 -- -- HGB 9.1* 9.4* 6.6* 8.2* 8.2* HCT 29.1* 30.2* 21.3* 25.8* 25.7* PLT 404 416 279 -- -- MCV 87.4 87.8 88.4 -- -- RDW 18.5* 18.6* 18.3* -- -- ABGs: No results for input(s): PHART, NYF2JNZ, PO2ART, LNQ1SNX, SO2ART, H7JKMAOH in the last 72 hours. Lactic Acid: No results for input(s): LACTATE in the last 72 hours. INR: Recent Labs 01/18/25 0238 01/19/25 0652 INR 2.1* 2.7* Cardiac Injury Profile: No results for input(s): CKTOTAL, CKMB, TROPONINI in the last 72 hours. Labs in Last 3 months: Lab Results Component Value Date TSH 1.190 08/17/2023 INR 2.7 (H) 01/19/2025 Microbiology- Urine Cx: No results found for: URINECX Blood Cx: Lab Results Component Value Date BLOODCX No growth at 5 days 01/01/2025 Sputum Cx: Lab Results Component Value Date RESPCULT Rare respiratory ila present. 12/30/2024 RESPCULT Many Staphylococcus aureus (A) 12/30/2024 Gram Stain: Lab Results Component Value Date LABGRAM (A) 01/02/2025 Many Polymorphonuclear leukocytes per low power field LABGRAM Many Gram positive cocci (A) 01/02/2025 LABGRAM Moderate Gram positive bacilli (A) 01/02/2025 PNA PCR: Lab Results Component Value Date HUMANMETAPNE Not Detected 11/15/2024 COVID19: No results found for: COVID19 Legionella Ag: Lab Results Component Value Date LEGIONELLAPN Not Detected 11/14/2024 Strep Ag: No results for input(s): STREPPNEUMO in the last 72 hours. Imaging- XR chest 1 view Final Result 1. Lingular infiltrate. 2. Prominence of the central pulmonary vasculature consistent with mild congestive heart failure/fluid overload. 3. Overall significant improvement in the aeration of the lungs when compared to the previous study. Report Dictated on Electronically Signed By: Delon Torres MD Electronically Signed Date/Time: 01/19/2025 6:16 AM EDT CTA abdomen angiogram w and/or wo IV contrast (Results Pending) Assessment and Plan: Principal Problem: Complication of tracheostomy (CMS/HCC) ([facility]) Active Problems: Severe malnutrition (CMS/HCC) (HCC) Assessment: Passage of Bright red blood per rectum Acute on Chronic normocytic anemia S/p GDA embolization to D1 ESRD on dialysis TTS; LUE AVF A-=Fib with severe aortic stenosis s/p st [facility] mechanical valve on coumadin Dislodged tracheostomy tube- Not replaced S/p PEG tube placement History of right occipital ICH Sacral decubitus ulcer History of IgA nephropathy Plan: Patient without further passage of blood/clots per rectum or melena since the single episode earlier this morning. Hemoglobin is stable at this time. 6.6-->8.2--->8.2 and did not receive any blood products Will evaluate patient further with report of CTA -abdomen/pelvis w/wo contrast. GI following, they plan to perform EGD/Colonoscopy if CT imaging suggests any signs of bleeding or blood loss Patient does not have any MICU needs at this time and MICU will sign off Please re-consult for any further concerns. GI Prophylaxis: Pantoprazole IV DVT Prophylaxis: Full anticoagulation BMI Classification: Body mass index is 18.63 kg/m . normal BMI 18.5-24.9 Disposition: Remain on the [facility] Critical Care Time: Total critical care time caring for this patient with life threatening, unstable organ failure, including direct patient contact, management of life support systems, review of data including imaging and labs, discussions with other team members and physicians, excluding procedures. Cosigned by Mariya Ibarra MD at 01/20/2025 8:07 PM EDT Associated attestation - Mariya Ibarra MD - 01/20/2025 8:07 PM EDT I have personally performed a [id number] diagnostic evaluation on this patient on date of service 01/20/25. History, labs, imaging studies, and electronic medical record have been reviewed by me. This note documented by the []house mover supervisor []ARMIN reflects my history, exam, and medical decision making. I have reviewed and agree with the care plan. Changes were made in the orders as necessary. ROS documentation was reviewed and negative unless otherwise stated in HPI. Assessment: Rectal bleeding ESRD/HD c/b chronic hypotension on midodrine Hx mechanical AVR 09/2024 c/b GIB requiring GDA embolization (10/16/2024) Hx PEA arrest c/b debility/functional decline and dysphagia s/p trach/PEG (10/2024) Chronic hypoxic respiratory failure s/p trach Plan: Pt had episode of bloody stool this AM. GI evaluated and given hx of previous life-threatening GIB (received MTP and GDA embolization), concern that may need urgent scope and reversal of anticoagulation. Hgb 6.6 in AM with repeat 8.2. He did not get blood in the interval, but this was also prior to bloody BM. GI requested ICU eval. At the time of our eval, pt was on HD and tolerating well (getting UF). Awake and alert. Denied abdominal pain. Abd S/ND Repeat H/H CTA abd ordered per GI If extrav on CTA abd or hgb drop will move to ICU for potential need for urgent scope per GI Coumadin held Metoprolol held: pt is also on midodrine - would continue midodrine for now Will need to consider reversing coumadin if concern for active/ongoing bleed, but given he has mechanical valve and currently stable, will hold off on reversal pending further workup Critical care time spent reviewing labs/films, examining patient, collaborating with other physicians but excluding procedures for life threatening organ failure is 39 minutes. Associated Order(s): IP CONSULT TO INFECTIOUS DISEASES Images from the original note were not included. [facility] - Infectious Diseases Advanced Practice Provider Consult Note Reason for Consult: Sacral ulcer osteomyelitis on IV abx at [facility] known patient History of Present Illness: 59 yo male with PMHx significant for ESRD on HD, HTN, and PAD who was admitted at [facility] 10/03-11/28/24 after presenting with chest pain, cough, and fatigue. He was found to be RSV + and also had elevated troponins prompting Cardiology eval. On 10/12, he underwent AVR. His post-op course was c/b PEA arrest/VDRF, hypovolemic shock, and acute GIB s/p GDA embolization. He underwent L subclavian transvenous pacer placement on 10/15. He was extubated on 10/18 and then re-intubated 10/19. He was again extubated 10/24 and then had PEA arrest on 11/01 requiring re-intubation and initiation of CRRT. He developed LLE DVTs s/p IVC filter, and now has ischemic toes. He underwent trach/PEG placement on 11/14. This was cb post-procedural abdominal distension and pneumoperitoneum. He underwent diagnostic laparotomy, EGD, and G tube placement; intra-operatively bilious peritonitis was noted. Peritoneal cultures grew E faecalis and C glabrata. He was treated with Pip-Tazo and Anidulafungin. He was transferred to [facility] on 11/28/24. There he was followed by our ID group and had had recurrent MSSA LRTI that was treated. Additionally, his sacral wound was debrided to bone on 01/02/25. Sacral wound Cx + E faecalis and Clostridium clostridioforme. He is to be on a course of Amp-Sulbactam x6 weeks through 02/13/25. He was discharged to SNF on 01/18. Patient presented to [facility] on 01/19 after self-dislodging tracheostomy. He was transferred to [facility] ICU for further airway management and to determine is replacement tracheostomy was needed. Patient denies fever, chills, CP, SOB, cough, N/V, abdominal pain at present. Notes sacral area is sore. He also has BRBPR; evaluated by GI. He is afebrile, hypotensive, on room air. Most recent labs- WBC 10.5, Hgb 8.2, plt 279. CXR with lingular infiltrate; prominence of central pulmonary vasculature. He is currently on Amp-Sulbactam Past Medical History: Past Medical History: Diagnosis Date Acute renal failure (ARF) ([facility]) 10/19/2019 Anemia 12/30/2021 Calcification of abdominal aorta ([facility]) 10/08/202309/[address] abd Diverticulosis 10/08/2023 ESRD on hemodialysis ([facility] [place]) ([facility]) 10/26/2019 Hemodialysis patient ([facility] [place] ([facility]) HTN (hypertension) 12/01/2022 Hypertension IgA nephropathy 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 10/26/2019 Missed vaccination due to patient refusal 10/08/2023 Has a number of non-scientific based beliefs which interfere with his understanding and acceptance of the medical benefit of vaccination. Nonrheumatic aortic valve stenosis 10/08/2023 Paroxysmal A-fib ([facility] [place]) ([facility]) 08/18/2023 Tobacco abuse 10/08/2023 Past Surgical History: Past Surgical History: Procedure Laterality Date APPENDECTOMY CARDIAC CATHETERIZATION N/A 10/09/2024 Performed by Bob Watson MD at [facility] Cardiac Cath/EP Lab CARDIAC CATHETERIZATION Bilateral 11/01/2024 Performed by Bob Watson MD at [facility] Cardiac Cath/EP Lab CARDIAC CATHETERIZATION N/A 11/01/2024 Performed by Bob Watson MD at [facility] Cardiac Cath/EP Lab FISTULAGRAM (HISTORICAL) Left 09/15/2021 LEFT UPPER ARM HX AV FISTULA CREATION IR EMBOLIZATION 10/14/2024 IR EMBOLIZATION 10/14/2024 [facility] SPECIAL PROCEDURES IR FISTULAGRAM 08/07/2022 IR FISTULAGRAM 08/07/2022 [facility] IR IMAGING TONSILLECTOMY (HISTORICAL) Current Medications: Current Facility-Administered Medications Medication Dose Route Frequency Provider Last Rate Last Admin acetaminophen (Tylenol) tablet 1,000 mg 1,000 mg Oral q8h PRN Steve Lassiter MD 1,000 mg at 01/19/25 1540 ampicillin-sulbactam (Unasyn) 3,000 mg in sodium chloride 0.9 % 100 mL IVPB (Add-Reynolds) 3,000 mg IntraVENous q12h Steve Lassiter MD Stopped at 01/20/25 0534 collagenase 250 UNIT/GM ointment Topical PRN Steve Lassiter MD collagenase 250 UNIT/GM ointment Topical Daily Steve Lassiter MD 1 Application at 01/19/25 1540 ipratropium-albuterol (Duo-Neb) 0.5-2.5 mg/3 mL nebulizer solution 3 mL 3 mL Nebulization q8h Steve Lassiter MD 3 mL at 01/20/25 0818 Lidocaine 4 % patch 1 patch 1 patch Topical Daily Steve Lassiter MD 1 patch at 01/19/25 0916 melatonin tablet 5 mg 5 mg Per G Tube Nightly PRN Steve Lassiter MD [Held by provider] metoprolol tartrate (Lopressor) tablet 25 mg 25 mg Per G Tube BID Steve Lassiter MD 25 mg at 01/19/25 0916 midodrine (Proamatine) tablet 15 mg 15 mg Per G Tube q6h Steve Lassiter MD 15 mg at 01/20/25 0503 mupirocin (Bactroban) 2 % ointment 1 Application 1 Application Nasal BID Steve Lassiter MD 1 Application at 01/19/25 2100 naloxone (Narcan) injection 0.4 mg 0.4 mg IntraVENous q5 min PRN Steve Lassiter MD ondansetron ODT (Zofran-ODT) disintegrating tablet 4 mg 4 mg Oral q8h PRN Steve Lassiter MD Or ondansetron (Zofran) injection 4 mg 4 mg IntraVENous q6h PRN Steve Lassiter MD oxyCODONE (Roxicodone) immediate release tablet 2.5 mg 2.5 mg Oral q6h PRN Steve Lassiter MD Or oxyCODONE (Roxicodone) immediate release tablet 5 mg 5 mg Oral q4h PRN Steve Lassiter MD 5 mg at 01/19/25 1150 pantoprazole (ProtoNix) injection 40 mg 40 mg IntraVENous BID Steve Lassiter MD 40 mg at 01/20/25 0503 [Held by provider] warfarin (Coumadin) tablet 2 mg 2 mg Oral Daily Steve Lassiter MD Allergies: Allergies Allergen Reactions Lisinopril Swelling and Angioedema Social History: Social History Socioeconomic History Marital status: Spouse name: Not on file Number of children: Not on file Years of education: Not on file Highest education level: Not on file Occupational History Not on file Tobacco Use Smoking status: Every Day Current packs/day: 1.00 Average packs/day: 1.4 packs/day for 31.2 years (45.0 ttl pk-yrs) Types: Cigarettes Start date: 1993 Passive exposure: Past Smokeless tobacco: Never Tobacco comments: Started at 28, 3 PPD, tapered down to 1 PPD in 2020 after quitting drinking. 10/27/24 Vaping Use Vaping status: Never Used Substance and Sexual Activity Alcohol use: Not Currently Drug use: Never Sexual activity: Not on file Other Topics Concern Not on file Social History Narrative Not on file Social Drivers of Health Financial Resource Strain: Patient Unable To Answer (12/01/2024) Received from [facility] Overall Financial Resource Strain (CARDIA) Difficulty of Paying Living Expenses: Patient unable to answer Food Insecurity: Patient Unable To Answer (12/01/2024) Received from [facility] Hunger Vital Sign Worried About Running Out of Food in the Last Year: Patient unable to answer Ran Out of Food in the Last Year: Patient unable to answer Transportation Needs: No Transportation Needs (01/18/2025) Received from [facility] Transportation Source Has lack of transportation kept you from medical appointments or from getting medications?: No Has lack of transportation kept you from meetings, work, or from getting things needed for daily living?: No Physical Activity: Not on file Stress: No Stress Concern Present (01/18/2025) Received from [facility] of Occupational Health - Occupational Stress Questionnaire Feeling of Stress : Not at all Social Connections: Patient Unable To Answer (12/01/2024) Received from [facility] Social Connection and Isolation Panel [NHANES] Frequency of Communication with Friends and Family: Patient unable to answer Frequency of Social Gatherings with Friends and Family: Patient unable to answer Attends Bahai Services: Patient unable to answer Active Member of Clubs or Organizations: Patient unable to answer Attends Club or Organization Meetings: Patient unable to answer Marital Status: Patient unable to answer Intimate Partner Violence: Patient Unable To Answer (11/28/2024) Received from [facility] Domestic Abuse Assessment Do you feel safe in your relationships at home?: Unable to assess Physical Abuse: Unable to assess [facility] Domestic Abuse - Type of Abuse: Not on file [facility] Domestic Abuse - Time Frame: Not on file [facility] Domestic Abuse - Signs and Symptoms: Not on file Verbal Abuse: Unable to assess [facility] Domestic Abuse - Reported To: Not on file Housing Stability: Patient Unable To Answer (12/01/2024) Received from [facility] Housing Stability Vital Sign Unable to Pay for Housing in the Last Year: Patient unable to answer Number of Times Moved in the Last Year: 0 Homeless in the Last Year: Patient unable to answer Family History: Family History Problem Relation Name Age of Onset No Known Problems Mother No Known Problems Father Review of Systems: Review of Systems Constitutional: Negative for chills, fatigue and fever. HENT: Negative for congestion, ear pain, postnasal drip, rhinorrhea, sinus pressure, sinus pain and sore throat. Eyes: Negative for pain, discharge and itching. Respiratory: Negative for cough, chest tightness and shortness of breath. Cardiovascular: Negative for chest pain, palpitations and leg swelling. Gastrointestinal: Positive for blood in stool. Negative for abdominal distention, abdominal pain, constipation, diarrhea, nausea and vomiting. Genitourinary: Negative for dysuria, flank pain, frequency and urgency. Musculoskeletal: Negative for arthralgias and myalgias. Skin: Positive for color change and wound. Negative for rash. Neurological: Positive for weakness. Negative for dizziness, light-headedness and headaches. Vitals: Patient Vitals for the past 24 hrs: BP Temp Temp src Pulse Resp SpO2 01/20/25 0818 -- -- -- 96 17 97 % 01/20/25 0524 100/58 36.1 C (97 F) Temporal 86 14 96 % 01/20/25 0353 -- -- -- 79 22 93 % 01/19/25 2335 107/67 36.3 C (97.3 F) Temporal 78 20 94 % 01/19/252000 95/61 -- -- -- -- -- 01/19/251999 -- 36.6 C (97.8 F) Temporal 77 14 98 % 01/19/25 1617 -- -- -- 81 -- 100 % 01/19/25 1600 113/67 36.3 C (97.4 F) Temporal 84 25 98 % 01/19/25 1505 110/75 -- -- 85 (!) 28 100 % 01/19/25 1500 110/75 -- -- 85 14 100 % 01/19/25 1403 92/59 -- -- 80 13 100 % 01/19/25 1400 92/59 -- -- 80 (!) 11 99 % 01/19/25 1308 91/52 -- -- 83 (!) 9 96 % 01/19/25 1300 91/52 -- -- 84 (!) 11 96 % 01/19/25 1200 102/67 36.1 C (97 F) Temporal 85 18 95 % 01/19/25 1100 100/67 -- -- 87 14 96 % 01/19/25 1000 103/71 -- -- 90 25 100 % Physical Exam: Physical Exam Vitals and nursing note reviewed. Constitutional: General: He is not in acute distress. Appearance: Normal appearance. He is normal weight. He is not ill-appearing. Comments: NAD laying in bed. Cooperative, responds appropriately. Getting HD. Ill-appearing HENT: Head: Normocephalic and atraumatic. Right Ear: External ear normal. Left Ear: External ear normal. Nose: Nose normal. Mouth/Throat: Mouth: Mucous membranes are moist. Pharynx: Oropharynx is clear. Eyes: Extraocular Movements: Extraocular movements intact. Conjunctiva/sclera: Conjunctivae normal. Pupils: Pupils are equal, round, and reactive to light. Neck: Comments: Recent tracheostomy site healing Cardiovascular: Rate and Rhythm: Normal rate and regular rhythm. Pulses: Normal pulses. Heart sounds: Normal heart sounds. Pulmonary: Effort: Pulmonary effort is normal. Breath sounds: Normal breath sounds. No wheezing, rhonchi or rales. Comments: Breathing unlabored on room air. No wheezes, rales, rhonchi Abdominal: General: Abdomen is flat. Bowel sounds are normal. There is no distension. Palpations: Abdomen is soft. Tenderness: There is no abdominal tenderness. There is no guarding. Musculoskeletal: Right lower leg: No edema. Left lower leg: No edema. Skin: General: Skin is warm and dry. Comments: Sacral wound images reviewed with red tissue, some slough L toes 1-4 with dry gangrene LUE AVF Neurological: General: No focal deficit present. Mental Status: He is alert and oriented to person, place, and time. Psychiatric: Mood and Affect: Mood normal. Behavior: Behavior normal. Labs: Recent Labs 01/19/25 0342 01/20/25 0514 NA 135* 135* K 4.4 4.8 CL 95* 98 CO2 25 22 BUN 80* 91* CREATININE 3.50* 4.31* GLUCOSE 85 68* CALCIUM 10.6* 9.2 Recent Labs 01/19/25 0342 01/19/25 0652 01/20/25 0514 01/20/25 0801 WBC 11.6* 10.9* 10.5 -- HGB 9.1* 9.4* 6.6* 8.2* HCT 29.1* 30.2* 21.3* 25.8* PLT 404 416 279 -- LYMPHOPCT 15.3 13.7* 11.6* -- MONOPCT 12.6 11.1 10.1 -- BASOPCT 1.1 1.3 1.1 -- NEUTROABS 7.6* 7.5 7.5 -- Micro: Previous ([facility]) 01/02- sacral wound cx- E faecalis (Amp-S), skin ila, Clostridium clostrioforme 01/01- blood cx- 2/2 NG 12/30- blood cx- 2/2 NGTD 12/30- sputum cx- MSSA, resp ila 12/25- blood cx- 2/2 negative 12/14- sputum cx- MSSA, resp ila 12/14- MRSA pcr- MSSA 12/11- sputum cx- MSSA, resp ila Previous ([facility]) 11/28- L pleural fluid- negative 11/16- abd fluid eswab- ASE faecalis 11/16- peritoneal cx- C glabrata 11/15- RPP- negative 11/15- sputum cx- resp ila 11/14- BAL pneumonia PCR- negative 11/14- BAL cx- resp ila 11/12- C diff PCR- negative 11/12- GI PCR- negative 11/02- MRSA PCR- MSSA 11/02- RPP- negative 11/01- pneumonia PCR- MSSA, RSV 11/01- BAL cx- MSSA, resp ila 11/01- blood cx- 2/2 negative 10/25- H pylori ag- negative 10/19- BAL cx- resp ila 10/19- BAL pneumonia PCR- coronavirus, RSV 10/16- BAL cx- resp ila 10/11- GI PCR- negative 10/03- blood cx- 2/2 negative 1/7- 4plex- RSV Lines: AVF PIV Radiography/Echo/Other: 01/19 CXR 1. Lingular infiltrate. 2. Prominence of the central pulmonary vasculature consistent with mild congestive heart failure/fluid overload. 3. Overall significant improvement in the aeration of the lungs when compared to the previous study. Antimicrobials, Start/End Dates: Anidulafungin: 11/27-11/28 Micafungin: 11/28- 12/10 Linezolid: 12/30-12/31 Pip/tazo: 12/30-01/01 Vancomycin: 12/31- 01/03 Meropenem: 01/01-01/04 Amp-Sulbactam: 01/06- present Impression: Sacral wound infection w osteomyelitis bedside debridement w/ exposed bone (01/02) sacral wound cx: ASEC, Clostridium Tracheostomy dislodgement BRBPR Leukocytosis- resolved Recurrent MSSA LRTI- treated Acute hypoxic respiratory failure s/p trach C glabrata, ASEC peritonitis s/p treatment Pneumoperitoneum s/p ex-lap, EGD, & abhishek gastrostomy tube placement (11/16/24) Hx GIB s/p GDA embolization (10/14/24) PEA arrest x2 (10/14/24, 11/01/24) Severe aortic stenosis s/p AVR (23mm [facility]- 10/12/24) LLE DVT's c/b ishemic L foot s/p IVC filter ESRD on HD via LUE AVF MWF Afib on amiodarone Plan: Patient known to our ID group for sacral osteomyelitis in which sacral wound debrided to bone on 01/02 at [facility] (Cx with E faecalis and Clostridium) Plan to continue renally-dosed Amp-Sulbactam through 02/13/25 to complete 6 week course. GI evaluating BRBPR. CT abd/pelvis and scope pending. Monitor infectious parameters. Continue wound care. ID will continue to follow. Case and plan discussed with Dr. Cruz Total time 55 minutes on this day of encounter includes counseling, coordinating plan of care, record and documentation review before and after visit including documentation and time not explicitly included on EMR time stamp for accounting for open encounter. Mikala MORAN, PAMitzyC [facility] [place] Cosigned by Gurdeep Cruz MD at 01/20/2025 4:06 PM EDT Associated Order(s): IP CONSULT TO GI Images from the original note were not included. Department of Internal Medicine Gastroenterology Attending Consult Note Reason for Consult: The patient was seen in consultation at the request of Dr. Denson re: GI bleed, acute blood loss anemia. CHIEF COMPLAINT: positive blood cultures, hypotension, removed trach History Obtained From: patient and EMR HISTORY OF PRESENT ILLNESS: The patient is a 59 y.o. male with significant past medical history of ESRD on dialysis, IgA nephropathy, hypertension, aortic valve replacement ([facility] 09/2024), status post PEA arrest with hypovolemic shock, EGD, subsequent GDA embolization to D1 10/16/2024, status post trach and PEG placement 11/14/2024, 11/16/2024 OR for diagnostic laparoscopy, EGD and Abhishek gastrostomy tube placement, who presented to the [facility] emergency room from [facility] on 01/19/2025 where he is admitted for IV antibiotics for multiple infected wounds including dry gangrene to the left foot and sacral ulcers. Patient accidentally pulled his tracheostomy and was therefore transferred to the emergency room. Patient transferred to [facility] for higher level of care. GI consult as above. We saw the patient during his last complicated admission. Our evaluation included consult for UGI bleed 2/2 possible duodenal ulcer s/p EGD 10/14/24 with endoscopic clip placement for location identifier, no intervention (large clot noted in D1). IR completed GDA embolization completed 10/14/2024. Patient with another episode of melena later in admission therefore repeat EGD performed on 10/24/2024 that revealed erosions with no bleeding and no stigmata of recent bleeding in the stomach. 1 nonbleeding cratered duodenal ulcer with a clean base in the duodenal bulb, D1/D2 junction with multiple nonbleeding ulcerations. Duodenal bulb clip noted. Patient had third EGD during PEG placement on 11/14/2024 with surgery that revealed normal esophagus and stomach, successful placement of PEG. Patient with chronic anemia throughout entire last hospitalization. On presentation to [facility] 01/19/2025 hemoglobin was 9.1. This morning dropped to 6.6. No transfusion but repeat hemoglobin 3 hours later at 8.2. Currently getting dialysis. Reports he had a BM 5 minutes ago and he does not know what stools have looked like. He denies abdominal pain. No nausea, vomiting. Per patient girlfriend SNF has been flipping [id number] between Coumadin and heparin secondary to patient INR. Assume last dose of Coumadin to be 01/18/2025. History of appendectomy and PEG placement. Allergies: Lisinopril Current Medications: Current Facility-Administered Medications: acetaminophen (Tylenol) tablet 1,000 mg, 1,000 mg, Oral, q8h PRN, Steve Lassiter MD, 1,000 mg at 01/19/25 1540 ampicillin-sulbactam (Unasyn) 3,000 mg in sodium chloride 0.9 % 100 mL IVPB (Add-Reynolds), 3,000 mg, IntraVENous, q12h, Steve Lassiter MD, Stopped at 01/20/25 0534 collagenase 250 UNIT/GM ointment, , Topical, PRN, Steve Lassiter MD collagenase 250 UNIT/GM ointment, , Topical, Daily, Steve Lassiter MD, 1 Application at 01/19/25 1540 ipratropium-albuterol (Duo-Neb) 0.5-2.5 mg/3 mL nebulizer solution 3 mL, 3 mL, Nebulization, q8h, Steve Lassiter MD, 3 mL at 01/20/25 0818 Lidocaine 4 % patch 1 patch, 1 patch, Topical, Daily, Steve Lassiter MD, 1 patch at 01/19/25 0916 melatonin tablet 5 mg, 5 mg, Per G Tube, Nightly PRN, Steve Lassiter MD [Held by provider] metoprolol tartrate (Lopressor) tablet 25 mg, 25 mg, Per G Tube, BID, Steve Lassiter MD, 25 mg at 01/19/25 0916 midodrine (Proamatine) tablet 15 mg, 15 mg, Per G Tube, q6h, Steve Lassiter MD, 15 mg at 01/20/25 0503 mupirocin (Bactroban) 2 % ointment 1 Application, 1 Application, Nasal, BID, Steve Lassiter MD, 1 Application at 01/19/25 2100 naloxone (Narcan) injection 0.4 mg, 0.4 mg, IntraVENous, q5 min PRN, Steve Lassiter MD ondansetron ODT (Zofran-ODT) disintegrating tablet 4 mg, 4 mg, Oral, q8h PRN OR ondansetron (Zofran) injection 4 mg, 4 mg, IntraVENous, q6h PRN, Steve Lassiter MD oxyCODONE (Roxicodone) immediate release tablet 2.5 mg, 2.5 mg, Oral, q6h PRN OR oxyCODONE (Roxicodone) immediate release tablet 5 mg, 5 mg, Oral, q4h PRN, Steve Lassiter MD, 5 mg at 01/19/25 1150 pantoprazole (ProtoNix) injection 40 mg, 40 mg, IntraVENous, BID, Steve Lassiter MD, 40 mg at 01/20/25 0503 [Held by provider] warfarin (Coumadin) tablet 2 mg, 2 mg, Oral, Daily, Steve Lassiter MD Past Medical History: Active Ambulatory Problems Diagnosis Date Noted Anemia 12/30/2021 Paroxysmal A-fib ([facility] ([facility]) 08/18/2023 HTN (hypertension) 12/01/2022 ESRD on hemodialysis ([facility]) ([facility]) 10/26/2019 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 10/26/2019 Diverticulosis 10/08/2023 Nonrheumatic aortic valve stenosis 10/08/2023 Calcification of abdominal aorta ([facility]) 10/08/2023 Missed vaccination due to patient refusal 10/08/2023 Tobacco abuse 10/08/2023 Alcohol use disorder in remission 10/08/2023 Atrial flutter, unspecified type ([facility]) 10/03/2024 RSV (acute bronchiolitis due to respiratory syncytial virus) 10/03/2024 Aortic stenosis 10/03/2024 Upper GI bleed 10/03/2024 S/P AVR 10/03/2024 Acute hypoxic respiratory failure ([facility]) 10/03/2024 Acute encephalopathy 10/03/2024 Pneumoperitoneum 10/03/2024 Gastric ulceration 2024 Severe malnutrition ([facility] ([facility]) 01/19/2025 Pleural effusion 11/28/2024 Peritonitis due to fungus ([facility]) 11/30/2024 History of abdominal surgery 11/30/2024 Leg DVT (deep venous thromboembolism), acute, left ([facility]) 11/30/2024 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, 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 of skin ([facility]) 11/30/2024 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[facility]) 11/30/2024 Leukocytosis 12/30/2024 Decubitus ulcer of sacral region, unstageable ([facility]) 12/30/2024 Pneumonia of both lungs due to methicillin susceptible Staphylococcus aureus (MSSA) ([facility]) 01/01/2025 Sacral osteomyelitis ([facility]) ([facility]) 01/03/2025 Acute respiratory failure with hypoxia ([facility]) [J96.01] 01/08/2025 Tracheostomy care ([facility]) [Z43.0] 01/08/2025 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[facility]) 01/08/2025 rn long term care (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 01/12/2025 Resolved Ambulatory Problems Diagnosis Date Noted Acute renal failure (ARF) ([facility]) 10/19/2019 New onset a-fib ([facility] [place] ([facility]) 08/16/2023 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[facility]) 10/03/2024 Past Medical History: Diagnosis Date Hemodialysis patient ([facility] [place]) ([facility]) Hypertension IgA nephropathy Past Surgical History: Social History Socioeconomic History Marital status: Spouse name: Not on file Number of children: Not on file Years of education: Not on file Highest education level: Not on file Occupational History Not on file Tobacco Use Smoking status: Every Day Current packs/day: 1.00 Average packs/day: 1.4 packs/day for 31.2 years (45.0 ttl pk-yrs) Types: Cigarettes Start date: 1993 Passive exposure: Past Smokeless tobacco: Never Tobacco comments: Started at 28, 3 PPD, tapered down to 1 PPD in 2020 after quitting drinking. 10/27/24 Vaping Use Vaping status: Never Used Substance and Sexual Activity Alcohol use: Not Currently Drug use: Never Sexual activity: Not on file Other Topics Concern Not on file Social History Narrative Not on file Social Drivers of Health Financial Resource Strain: Patient Unable To Answer (12/01/2024) Received from [facility] Overall Financial Resource Strain (CARDIA) Difficulty of Paying Living Expenses: Patient unable to answer Food Insecurity: Patient Unable To Answer (12/01/2024) Received from [facility] Hunger Vital Sign Worried About Running Out of Food in the Last Year: Patient unable to answer Ran Out of Food in the Last Year: Patient unable to answer Transportation Needs: No Transportation Needs (01/18/2025) Received from [facility] SDOH Transportation Source Has lack of transportation kept you from medical appointments or from getting medications?: No Has lack of transportation kept you from meetings, work, or from getting things needed for daily living?: No Physical Activity: Not on file Stress: No Stress Concern Present (01/18/2025) Received from [facility] of Occupational Health - Occupational Stress Questionnaire Feeling of Stress : Not at all Social Connections: Patient Unable To Answer (12/01/2024) Received from [facility] Social Connection and Isolation Panel [NHANES] Frequency of Communication with Friends and Family: Patient unable to answer Frequency of Social Gatherings with Friends and Family: Patient unable to answer Attends Bahai Services: Patient unable to answer Active Member of Clubs or Organizations: Patient unable to answer Attends Club or Organization Meetings: Patient unable to answer Marital Status: Patient unable to answer Intimate Partner Violence: Patient Unable To Answer (11/28/2024) Received from [facility] Domestic Abuse Assessment Do you feel safe in your relationships at home?: Unable to assess Physical Abuse: Unable to assess [facility] Abuse - Type of Abuse: Not on file [facility] Domestic Abuse - Time Frame: Not on file [facility] Domestic Abuse - Signs and Symptoms: Not on file Verbal Abuse: Unable to assess [facility] Domestic Abuse - Reported To: Not on file Housing Stability: Patient Unable To Answer (12/01/2024) Received from [facility] Housing Stability Vital Sign Unable to Pay for Housing in the Last Year: Patient unable to answer Number of Times Moved in the Last Year: 0 Homeless in the Last Year: Patient unable to answer Family History: Family History Problem Relation Name Age of Onset No Known Problems Mother No Known Problems Father No family history colon or stomach cancer. Social History: TOBACCO: reports that he has been smoking cigarettes. He started smoking about 31 years ago. He has a 45 pack-year smoking history. He has been exposed to tobacco smoke. He has never used smokeless tobacco. ETOH: reports that he does not currently use alcohol. DRUGS: reports no history of drug use. 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 Normal appetite and weight. No DAWSON, visual disturbance, eye pain, jaundice, sore throat or mouth ulcers. No skin rash or itching. No CP, SOB, RAMOS, cough or wheeze. No urinary frequency, urgency, hematuria, or dysuria. No myalgia, arthralgia, or joint swelling. No weakness, numbness, or confusion. GI per HPI. No polyuria, polydipsia, heat or cold intolerance. PHYSICAL EXAM: VS: BP 100/58 (BP Location: Right arm, Patient Position: Sitting) Pulse 96 Temp 36.1 C (97 F) (Temporal) Resp 17 Ht 5' 10 (1.778 m) Wt 129 lb 13.6 oz (58.9 kg) SpO2 97% BMI 18.63 kg/m Body mass index is 18.63 kg/m . Constitutional: No acute distress. Appears ill. Thin. Head/Eyes: Pupils are equal and round; Conjunctiva are not injected; Sclera are non-icteric. ENT: Ears/nose without external abnormalities. Oral mucosa is pink and semi moist. Neck: No JVD. No carotid bruits; No thyromegaly. Respiratory: Clear to auscultation bilaterally without any added sounds. Effort is normal Heart: Regular, Normal S1 and S2. No murmur; No added sounds. Abdomen: Normal BS, soft, non-tender, non-distended; no hepatomegaly. BRBPR, present in chux under patient Extremities/Skin: Ischemic left foot, Musculoskeletal: Head - normocephalic. Neck - supple Psychiatric: AAO x 3, answers appropriately, normal mood, flat affect. Non-focal. DATA: Recent blood work and relevant radiologic and endoscopic studies were reviewed and discussed with the patient. CBC: Recent Labs 01/19/25 0342 01/19/25 0652 01/20/25 0514 01/20/25 0801 WBC 11.6* 10.9* 10.5 -- RBC 3.33* 3.44* 2.41* -- HGB 9.1* 9.4* 6.6* 8.2* HCT 29.1* 30.2* 21.3* 25.8* MCV 87.4 87.8 88.4 -- MCH 27.3 27.3 27.4 -- MCHC 31.3 31.1 31.0 -- RDW 18.5* 18.6* 18.3* -- PLT 404 416 279 -- MPV 9.2 9.4 9.0 -- CMP: Recent Labs 01/19/25 0342 01/20/25 0514 NA 135* 135* K 4.4 4.8 CL 95* 98 CO2 25 22 BUN 80* 91* CREATININE 3.50* 4.31* GLUCOSE 85 68* CALCIUM 10.6* 9.2 PT/INR: Recent Labs 01/18/25 0238 01/19/25 0652 INR 2.1* 2.7* Radiologic Review IR Embolization 10/14/2024 IMPRESSION: Angiography of the celiac and superior mesenteric artery vasculature demonstrates no active extravasation. Of note, branches of the gastroduodenal artery approached previously placed endoscopic clip. This is likely representing hemorrhagic source. Technically successful and uneventful embolization of the gastroduodenal artery without opacification of related branches. Endoscopic Review EGD 10/14/2024 EGD 10/24/24 EGD 11/14/24 ASSESSMENT AND PLAN BRBPR- large volume clifford blood on chux pad during evaluation Acute on chronic anemia History of UGI Bleed- s/p EGD 10/14/24 with clot noted in D1, no intervention, IR GDA embolization 10/14/24 A. Fib s/p aortic valve replacement- 10/12/24, Coumadin, last dose suspected 01/18/[address] [facility] Acute Right occipital ICH- 10/22/24 ESRD on HD - Reverse INR if appropriate, would recommend discussing with cardiology - Recommend CTA AP, if positive will do emergent scope- if negative and patient is in ICU can scope on Wednesday AM, if remains stable and on the floor, endoscopy on Wednesday01/22/25 - NPO - Continue medical management and supportive care per primary team - Continue to monitor H/H and transfuse per primary team - Protonix 80 mg bolus and then Protonix drip - Discussed with Dr. Alba and primary team - GI to follow Cosigned by Eldon Alba MD at 01/21/2025 8:23 AM EDT Associated Order(s): IP CONSULT TO PALLIATIVE CARE Consult acknowledged. Chart reviewed. Jun Snyder is a 59 y.o. male with who presented to [facility] as transfer for trach dislodgment. Palliative Care consult requested for Goals of care. Patient to be seen early next week for a full consult. DENIA Carranza CNP Cosigned by Alice Camargo MD at 01/20/2025 1:16 PM EDT Associated Order(s): IP CONSULT TO DIETITIAN RD received new consult overnight for TF ordering and management, messaged attending physician who noted plan is to hold EN for now as pt with probable GIB, RD just completed full nutrition assessment yesterday (01/19) which includes recommendations for EN when appropriate to start, please see those recommendations for EN initiation once feasible. Will continue to monitor. Addendum: received secure chat from attending about initiating EN now, GI cleared pt. Noted RD recommendations yesterday: --> when EN to begin, recommend: Nepro with CHO Steady @ goal rate of 50mls/hr to provide 2124kcals, 97gm protein, 872mL free fluid (~36kcals/kg, 1.6gm/kg ABW <58.9kg> vs 28kcals/kg, 1.3gm/kg IBW). This was the regimen pt was receiving and tolerating while at [facility]. Per MNT protocol will initiate EN as above given prior consult for TF ordering and management. This result has been reviewed by Casandra Everett, NIKKY, LD on 01/20/25 at 7:18 AM. [facility] Consult Note Consults HPI The patient is a history of ESRD secondary to IgA nephropathy, currently HD-dependent via a left upper extremity AVF, on a Wednesday//Wednesday ([facility]) dialysis schedule, with the last HD session completed yesterday. He has a complex past medical history significant for tracheostomy (11/14/24), PEG placement (11/16/24), hypertension, paroxysmal atrial fibrillation, right occipital intracerebral hemorrhage (ICH), severe aortic stenosis (status post aortic valve replacement on 10/12/24), tobacco use, and diverticulosis. His post-operative course was complicated by severe acute malnutrition, multiple intubations requiring tracheostomy, and critical illness requiring CRRT followed by transition back to maintenance hemodialysis. He presented today following accidental tracheostomy dislodgement during transfer at the SNF, was unable to be re-cannulated in the ED, and was transferred to the ICU for further airway management Past Medical History: Diagnosis Date Acute renal failure (ARF) ([facility]) 10/19/2019 Anemia 12/30/2021 Calcification of abdominal aorta ([facility]) 10/08/202309/[address] abd Diverticulosis 10/08/2023 ESRD on hemodialysis ([facility]) ([facility]) 10/26/2019 Hemodialysis patient ([facility]) ([facility]) HTN (hypertension) 12/01/2022 Hypertension IgA nephropathy 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 10/26/2019 Missed vaccination due to patient refusal 10/08/2023 Has a number of non-scientific based beliefs which interfere with his understanding and acceptance of the medical benefit of vaccination. Nonrheumatic aortic valve stenosis 10/08/2023 Paroxysmal A-fib ([facility]) ([facility]) 08/18/2023 Tobacco abuse 10/08/2023 Social History Socioeconomic History Marital status: Spouse name: Not on file Number of children: Not on file Years of education: Not on file Highest education level: Not on file Occupational History Not on file Tobacco Use Smoking status: Every Day Current packs/day: 1.00 Average packs/day: 1.4 packs/day for 31.2 years (45.0 ttl pk-yrs) Types: Cigarettes Start date: 1993 Passive exposure: Past Smokeless tobacco: Never Tobacco comments: Started at 28, 3 PPD, tapered down to 1 PPD in 2020 after quitting drinking. 10/27/24 Vaping Use Vaping status: Never Used Substance and Sexual Activity Alcohol use: Not Currently Drug use: Never Sexual activity: Not on file Other Topics Concern Not on file Social History Narrative Not on file Social Drivers of Health Financial Resource Strain: Patient Unable To Answer (12/01/2024) Received from [facility] Overall Financial Resource Strain (CARDIA) Difficulty of Paying Living Expenses: Patient unable to answer Food Insecurity: Patient Unable To Answer (12/01/2024) Received from [facility] Hunger Vital Sign Worried About Running Out of Food in the Last Year: Patient unable to answer Ran Out of Food in the Last Year: Patient unable to answer Transportation Needs: No Transportation Needs (01/18/2025) Received from [facility] Transportation Source Has lack of transportation kept you from medical appointments or from getting medications?: No Has lack of transportation kept you from meetings, work, or from getting things needed for daily living?: No Physical Activity: Not on file Stress: No Stress Concern Present (01/18/2025) Received from [facility] of Occupational Health - Occupational Stress Questionnaire Feeling of Stress : Not at all Social Connections: Patient Unable To Answer (12/01/2024) Received from [facility] Social Connection and Isolation Panel [NHANES] Frequency of Communication with Friends and Family: Patient unable to answer Frequency of Social Gatherings with Friends and Family: Patient unable to answer Attends Bahai Services: Patient unable to answer Active Member of Clubs or Organizations: Patient unable to answer Attends Club or Organization Meetings: Patient unable to answer Marital Status: Patient unable to answer Intimate Partner Violence: Patient Unable To Answer (11/28/2024) Received from [facility] Domestic Abuse Assessment Do you feel safe in your relationships at home?: Unable to assess Physical Abuse: Unable to assess [facility] Abuse - Type of Abuse: Not on file [facility] Domestic Abuse - Time Frame: Not on file [facility] Domestic Abuse - Signs and Symptoms: Not on file Verbal Abuse: Unable to assess [facility] Domestic Abuse - Reported To: Not on file Housing Stability: Patient Unable To Answer (12/01/2024) Received from [facility] Vital Sign Unable to Pay for Housing in the Last Year: Patient unable to answer Number of Times Moved in the Last Year: 0 Homeless in the Last Year: Patient unable to answer Family History Problem Relation Name Age of Onset No Known Problems Mother No Known Problems Father Current Facility-Administered Medications: acetaminophen (Tylenol) tablet 1,000 mg, 1,000 mg, Oral, q8h PRN, Steve Lassiter MD, 1,000 mg at 01/19/25 1540 ampicillin-sulbactam (Unasyn) 3,000 mg in sodium chloride 0.9 % 100 mL IVPB (Add-Reynolds), 3,000 mg, IntraVENous, Daily, Steve Lassiter MD collagenase 250 UNIT/GM ointment, , Topical, PRN, Steve Lassiter MD collagenase 250 UNIT/GM ointment, , Topical, Daily, Steve Lassiter MD, 1 Application at 01/19/25 1540 ipratropium-albuterol (Duo-Neb) 0.5-2.5 mg/3 mL nebulizer solution 3 mL, 3 mL, Nebulization, q8h, Steve Lassiter MD, 3 mL at 01/19/25 0812 Lidocaine 4 % patch 1 patch, 1 patch, Topical, Daily, Steve Lassiter MD, 1 patch at 01/19/25 0916 melatonin tablet 5 mg, 5 mg, Per G Tube, Nightly PRN, Steve Lassiter MD metoprolol tartrate (Lopressor) tablet 25 mg, 25 mg, Per G Tube, BID, Steve Lassiter MD, 25 mg at 01/19/25 0916 midodrine (Proamatine) tablet 15 mg, 15 mg, Per G Tube, q6h, Steve Lassiter MD, 15 mg at 01/19/25 1150 mupirocin (Bactroban) 2 % ointment 1 Application, 1 Application, Nasal, BID, Steve Lassiter MD, 1 Application at 01/19/25 0918 naloxone (Narcan) injection 0.4 mg, 0.4 mg, IntraVENous, q5 min PRN, Steve Lassiter MD ondansetron ODT (Zofran-ODT) disintegrating tablet 4 mg, 4 mg, Oral, q8h PRN OR ondansetron (Zofran) injection 4 mg, 4 mg, IntraVENous, q6h PRN, Steve Lassiter MD oxyCODONE (Roxicodone) immediate release tablet 2.5 mg, 2.5 mg, Oral, q6h PRN OR oxyCODONE (Roxicodone) immediate release tablet 5 mg, 5 mg, Oral, q4h PRN, Steve Lassiter MD, 5 mg at 01/19/25 1150 pantoprazole (ProtoNix) injection 40 mg, 40 mg, IntraVENous, BID, Steve Lassiter MD, 40 mg at 01/19/25 1540 QUEtiapine (SEROquel) tablet 25 mg, 25 mg, Per G Tube, Nightly, Steve Lassiter MD [Held by provider] warfarin (Coumadin) tablet 2 mg, 2 mg, Oral, Daily, Steve Lassiter MD Scheduled medications ampicillin-sulbactam, 3,000 mg, IntraVENous, Daily collagenase, , Topical, Daily ipratropium-albuterol, 3 mL, Nebulization, q8h Lidocaine, 1 patch, Topical, Daily metoprolol tartrate, 25 mg, Per G Tube, BID midodrine, 15 mg, Per G Tube, q6h mupirocin, 1 Application, Nasal, BID pantoprazole, 40 mg, IntraVENous, BID QUEtiapine, 25 mg, Per G Tube, Nightly [Held by provider] warfarin, 2 mg, Oral, Daily Continuous medications PRN medications PRN medications: acetaminophen, collagenase, melatonin, naloxone, ondansetron ODT OR ondansetron, oxyCODONE OR oxyCODONE Review of systems as per HPI otherwise 10 point review systems negative BP 110/75 Pulse 85 Temp 36.1 C (97 F) (Temporal) Resp (!) 28 Ht 1.778 m (5' 10) Wt 58.9 kg (129 lb 13.6 oz) SpO2 100% BMI 18.63 kg/m Input / Output: 24 HR: No intake or output data in the 24 hours ending 01/19/25 1613 Physical Exam Alert and oriented x 3, NAD EOMI OP clear Neck: supple, No JVD CV: RRR without m/r/g Lungs: CTA bilaterally Abd: soft NT/ND +BS Ext: no lower extremity edema Neuro: grossly intact Skin: no rashes Results from last 7 days Lab Units 01/19/2534101/16/2531501/15/25 0257 SODIUM mmol/L 135* 138 135* POTASSIUM mmol/L 4.4 4.0 5.6* CHLORIDE mmol/L 95* 95* 93* CO2 mmol/L 25 28 27 BUN mg/dL 80* 64* 117* CREATININE mg/dL 3.50* 2.46* 3.97* GLUCOSE mg/dL 85 85 95 CALCIUM mg/dL 10.6* 9.6 10.2 Results from last 7 days Lab Units 01/19/2534101/16/2531501/15/25 0257 SODIUM mmol/L 135* < > 135* POTASSIUM mmol/L 4.4 < > 5.6* CHLORIDE mmol/L 95* < > 93* CO2 mmol/L 25 < > 27 BUN mg/dL 80* < > 117* CREATININE mg/dL 3.50* < > 3.97* CALCIUM mg/dL 10.6* < > 10.2 PROTEIN TOTAL g/dL -- -- 8.3 BILIRUBIN TOTAL mg/dL -- -- 1.0 ALK PHOS U/L -- -- 396* ALT U/L -- -- 53* AST U/L -- -- 88* GLUCOSE mg/dL 85 < > 95 < > = values in this interval not displayed. Results from last 7 days Lab Units 01/15/25 0257 MAGNESIUM mg/dL 2.9* Results from last 7 days Lab Units 01/19/25 0652 01/19/2534101/15/25 0257 WBC AUTO 10*3/uL 10.9* 11.6* 12.0* HEMOGLOBIN g/dL 9.4* 9.1* 9.3* HEMATOCRIT % 30.2* 29.1* 29.8* PLATELETS 10*3/uL 416 404 476* No orders to display Assessment and Plan: End-Stage Renal Disease (ESRD) secondary to IgA nephropathy, Hemodialysis (TTS schedule): Patient is HD-dependent via a mature left upper extremity AVF. Maintains a routine Wednesday//Wednesday (TTS) hemodialysis schedule. Last HD session was completed on , 01/18/25. No urgent electrolyte abnormalities, no evidence of hypervolemia (no worsening edema, stable oxygen requirements), and no overt uremic symptoms (no pericarditis, altered mental status beyond chronic baseline from ICH). Current Clinical Status: Patient remains hemodynamically stable. Mild metabolic acidosis (HCO? ~20 mmol/L), acceptable for ESRD baseline. No urgent need for off-schedule dialysis at this time. Plan: Proceed with routine scheduled HD tomorrow (Wednesday01/20/25). Daily labs to monitor electrolytes (potassium, bicarbonate) and volume status markers (BUN, creatinine, BNP if clinically indicated). Strict input/output (I/O) monitoring to assess for fluid overload; maintain net even to slightly negative balance as tolerated. Continue nephrology involvement for dialysis planning and oversight. If any signs of worsening hyperkalemia (>6.0 mmol/L), symptomatic fluid overload (worsening respiratory status, pulmonary edema), or uremic complications develop (e.g., pericarditis, altered mental status), re-evaluate for urgent HD prior to scheduled session. Coordinate dialysis with respiratory team given recent tracheostomy dislodgement and potential airway management needs. Maintain NPO status per E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 recommendations until airway stabilization; consider modification of HD orders if NPO persists beyond 24-48 hours impacting volume/nutrition Please message me through [employer] chat with any questions or concerns. Wellington Nicole MD 01/19/2025 4:13 PM [facility] [address] [place] [address], [address] [place] [address] Office: [phone] Associated Order(s): IP CONSULT TO DIETITIAN; IP CONSULT TO DIETITIAN; IP CONSULT TO DIETITIAN Nutrition Assessment Type and Reason for Visit: Initial, Consult (Tube Feedings Order and Managment and Tube Feedings Recommendations Only - Provider to Manage consults both in) Nutrition Recommendations/Plan: PATIENT MEETS ASPEN/AND GUIDELINES FOR SEVERE MALNUTRITION IN THE CONTEXT OF CHRONIC ILLNESS. Pt is currently NPO. Pt admitted s/p accidental removal of trach. Pt with PEG and was receiving EN only as sole source of nutrition. E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 was following while pt was at [facility]. E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 consulted inpatient and recommending strict NPO. RD discussed consults that are in place with ICU team who desires EN recs only for now and possibly plans to initiate EN tomorrow. --> when EN to begin, recommend: Nepro with CHO Steady @ goal rate of 50mls/hr to provide 2124kcals, 97gm protein, 872mL free fluid (~36kcals/kg, 1.6gm/kg ABW <58.9kg> vs 28kcals/kg, 1.3gm/kg IBW). This was the regimen pt was receiving and tolerating while at [facility]. Will monitor tolerance of nutrition as initiated and increased to goal. Will continue to monitor E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 in the event that oral diet can later be initiated. Will continue to monitor weight changes, labs and overall nutrition status Pt denies having questions for RD at this time. RD will continue to follow up weekly Malnutrition Assessment: Malnutrition Status: Severe malnutrition Context: Chronic Illness Findings of the 6 clinical characteristics of malnutrition: Energy Intake: No significant decrease in energy intake Weight Loss: (32.3% weight loss over ~4 month time period- RD obtained bedscale weight today of 58.9kg (130#), per EPIC review --> 10/08/23: 207#, 11/12: 208#, 08/28: 206#, 10/04/24: 192#, 10/15: 207# bedscale, 10/31: 200#, 11/28: 161#, 01/18: 142#) Body Fat Loss: Severe body fat loss Orbital, Triceps, Fat Overlying Ribs, Buccal region Muscle Mass Loss: Severe muscle mass loss Temples (temporalis), Clavicles (pectoralis & deltoids), Thigh (quadraceps), Calf (gastrocnemius) Fluid Accumulation: No significant fluid accumulation (per flowsheets) Electronic Console Display Operator Strength: Not Performed Nutrition Assessment: pt with PMH significant for trach (11/14/24)/PEG (11/16/24), HTN, paroxysmal a-fib, R occipital ICH, tobacco abuse, ESRD on HD (T/THS via LUE AVF), diverticulosis, IgA nephropathy and severe who initially presented to the ED 10/03/24 with complaints of chest pain, fatigue and cough that was ongoing for 2 months, pt was noted to be RSV +, troponin was elevated and Cardiology was consulted, echo showed EF 40%, moderate RV dilation and dysfunction with severe aortic stenosis, also noted mild to moderate 1-2+ MR and severe 4+ TR, CTS was consulted for SAVR vs TAVR, pt taken to OR with CTS on 10/12 for AVR, pt had complicated post-op recovery course- required CRRT and eventaully transitioned back to baseline HD, multiple intubations and subsequent trach/PEG, multiple wounds being followed by wound care, pt was followed by RD during admit and was identified to meet severe acute malnutrition criteria, pt was ordered Vital AF 1.2 initially 2/2 propofol kcals, was then changed to TwoCal @ 45mls/hr + 1 Prostat however when TwoCal went out of stock was changed to Vital 1.5 @ 55mls/hr + 1 Prostat, pt was stabilized and transferred to [facility] for ongoing care, vent liberation and rehab, while at [facility] RD was following and pt was receiving Nepro @ 50mls/hr, pt was discharged from [facility] to SNF on 01/18/25, pt now presented to [facility] ED on 01/19/[address] [facility] due to trach dislodgement, pt stated he was trying to disconnect his vent to transfer to another room but accidentally pulled out his tracheostomy, event happened approximately 45 minutes before ED arrival, ED attempted to place tracheostomy tube back but was unsuccessful thus decision was made to transfer pt to [facility] ICU for further airway management and to determine if replacement tracheostomy is needed,on MD bedside assessment pt was A&Ox4, was complaining of SOB with chest pressure and left sided chest pain that is stabbing in nature, pt girlfriend at bedside and pt both stated this has been an ongoing issue since he was coded back in September, pt otherwise without complaints, girlfriend stated concern about pt mentation but states he has been like this since [facility], pt was transferred to ICU for further management, Nephrology and wound care consults pending, E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 was also consulted and recommending strict NPO. 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, states his goals are to 'eat ice chips and be able to sit on that toilet', pt confirms that he has had significant weight loss since admit 09/2024- no admit weight obtained, RD obtained bedscale weight today of 58.9kg (130#), per EPIC review --> 10/08/23: 207#, 11/12: 208#, 08/28: 206#, 10/04/24: 192#, 10/15: 207# bedscale, 10/31: 200#, 11/28: 161#, 01/18: 142#, utilizing weight from 10/04/24 to CBW pt with 32.3% weight loss over ~4 months which is significant for severe malnutrition, pt also with signs of severe malnutrition wasting per NFPE, discussed multiple consults in place with ICU team who desires EN recs only for now and possibly plans to initiate EN tomorrow, will continue to monitor clinical course and tolerance of nutrition as able to be initiated. Estimated Daily Nutrient Needs: Energy Requirements Based On: Kcal/kg Weight Used for Energy Requirements: Current Weight for Energy Calculation (kg): 58.9 kg Total Energy Requirements (kcals/day): 2060-6kcals/day Weight Used for Protein Requirements: Current Weight in Kg Used for Protein Requirements: 58.9 kg Estimated Total Protein (g/day): 82-106gm pro/day- + wounds and ESRD/HD Estimated Daily Total Fluid (ml/day): per MD recommendations Nutrition Related Findings: Pt presented from SNF, prolonged admit at [facility] 10/03-11/28/24, discharged to [facility] and recently transferred to [facility] Orientation Level: Oriented to situation, Oriented to time, Oriented to person, Disoriented to place, Oriented/disoriented at times, Cognition: Follows commands, Best Verbal Response: Confused, Patient Behaviors/Mood: Anxious, Cooperative, Restless Teeth: Missing teeth Swallow: Other (Comment) (SHAQ) Kee Scale Score: 15. Wound Type: Wound Consult Pending (scattered bruising, redness, abrasions, cracking, sacrum stage 3 and left toes necrotic) Net IO Since Admission: No IO data has been entered for this period [01/19/25 1057] Gastrointestinal (WDL): Exceptions to WDL (peg) Bowel Sounds (All Quadrants): Active Abdomen Inspection: Soft, Rounded, Gastrostomy tube Last BM Date: 01/19/25, Stool Appearance: Loose Edema: none Oxygen Therapy: None (Room air) Labs and meds reviewed: Scheduled: ipratropium-albuterol, 3 mL, Nebulization, q8h Lidocaine, 1 patch, Topical, Daily metoprolol tartrate, 25 mg, Per G Tube, BID midodrine, 15 mg, Per G Tube, q6h mupirocin, 1 Application, Nasal, BID pantoprazole, 40 mg, IntraVENous, BID QUEtiapine, 25 mg, Per G Tube, Nightly [Held by provider] warfarin, 2 mg, Oral, Daily Continuous: none Current Nutrition Therapies: NPO diet without enteral medications Current Oral Intake Average Meal Intake: NPO Average Supplements Intake: NPO Anthropometric Measures: Height: 177.8 cm (5' 10) Current Body Weight: 58.9 kg (129 lb 13.6 oz) (RD obtained bedscale weight today 01/19/25) Weight Source: Bed Scale Admission Body Weight: (no admit weight obtained) Usual Body Weight: (per EPIC review --> 10/08/23: 207#, 11/12: 208#, 08/28: 206#, 10/04/24: 192#, 10/15: 207# bedscale, 10/31: 200#, 11/28: 161#, 01/18: 142#) [place] Body Weight (lbs) (Calculated): 166 lbs [place] Body Weight (Kg) (Calculated): 75 kg % [place] Body Weight (Calculated): 78.2 % BMI (kg/m2) (Calculated): 18.6 Weight Adjustment For: No Adjustment BMI Categories: Normal Weight (BMI 18.5-24.9) Wt Readings from Last 10 Encounters: 01/19/25 58.9 kg (129 lb 13.6 oz) 11/28/24 58.9 kg (129 lb 13.6 oz) 08/28/24 93.4 kg (206 lb) 11/12/23 94.3 kg (208 lb) 10/08/23 93.9 kg (207 lb) 08/17/23 90.7 kg (200 lb) 05/01/23 90.7 kg (200 lb) 08/07/22 90.7 kg (200 lb) 12/18/20 85.3 kg (188 lb) Nutrition Diagnosis: Severe malnutrition, In context of chronic illness related to (prolonged admit 1/7-11/28/24- severe s/p aortic valve replacement 10/12 and complicated post op course, multiple intubations s/p trach/PEG, CRRT transitioned to HD, + wounds and increased nutrition needs) as evidenced by (32.3% weight loss over ~4 month time period (10/04/24: 192# to CBW 130# bedscale), severe muscle mass depletion temporal/clavicle/deltoid/edita ceps/gastrocnemius regions and severe subcutaneous fat wasting orbital/triceps/thoracic/buccal regions) Increased nutrient needs related to increase demand for energy/nutrients as evidenced by dialysis, wounds Nutrition Interventions: Nutrition Education/Counseling: (pt denies having questions for RD) Coordination of Nutrition Care: Continue to monitor while inpatient Plan of Care discussed with: pt, RN and ICU team Goals: Goals: Initiate nutrition support, within 2 days Nutrition Monitoring and Evaluation: Behavioral-Environmental Outcomes: None Identified Food/Nutrient Intake Outcomes: Enteral Nutrition Intake/Tolerance Physical Signs/Symptoms Outcomes: Biochemical Data, GI Status, Fluid Status or Edema, Hemodynamic Status, Weight, Skin, Nutrition Focused Physical Findings Discharge Planning: Enteral Nutrition Dana El RD Contact: available via Interactive TKO or *[id number] Associated Order(s): INPATIENT CONSULT TO WOUND CARE PROVIDERS Images from the original note were not included. [facility] Wound Care CONSULT Note Jun Snyder AGE: 59 y.o. GENDER: male : 1965 Subjective: HISTORY of PRESENT ILLNESS HPI Jun Snyder is a 59 y.o. male who presents for a wound consult. HPI: Jun is a 59 yo male with a PMH of Trach and peg, HTN, paroxysmal a-fib, R occipital ICH, Tobacco abuse, ARF - dialysis (TTS; LUE AVF), diverticulosis, IgA nephropathy, severe that presented to [facility] ED from a facility due to trach dislodgement. Wound Care consulted for Pressure Injury sacrum and Ischemic ulcers to left toes PAST MEDICAL HISTORY Past Medical History: Diagnosis Date Acute renal failure (ARF) (HCC) 10/19/2019 Anemia 12/30/2021 Calcification of abdominal aorta (HCC) 10/08/202309/[address] abd Diverticulosis 10/08/2023 ESRD on hemodialysis ([facility]) ([facility]) 10/26/2019 Hemodialysis patient ([facility]) ([facility]) HTN (hypertension) 12/01/2022 Hypertension IgA nephropathy 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 10/26/2019 Missed vaccination due to patient refusal 10/08/2023 Has a number of non-scientific based beliefs which interfere with his understanding and acceptance of the medical benefit of vaccination. Nonrheumatic aortic valve stenosis 10/08/2023 Paroxysmal A-fib ([facility]) ([facility]) 08/18/2023 Tobacco abuse 10/08/2023 PAST SURGICAL HISTORY Past Surgical History: Procedure Laterality Date APPENDECTOMY CARDIAC CATHETERIZATION N/A 10/09/2024 Performed by Bob Watson MD at [facility] Cardiac Cath/EP Lab CARDIAC CATHETERIZATION Bilateral 11/01/2024 Performed by Bob Watson MD at [facility] Cardiac Cath/EP Lab CARDIAC CATHETERIZATION N/A 11/01/2024 Performed by Bob Watson MD at [facility] Cardiac Cath/EP Lab FISTULAGRAM (HISTORICAL) Left 09/15/2021 LEFT UPPER ARM HX AV FISTULA CREATION IR EMBOLIZATION 10/14/2024 IR EMBOLIZATION 10/14/2024 [facility] SPECIAL PROCEDURES IR FISTULAGRAM 08/07/2022 IR FISTULAGRAM 08/07/2022 [facility] IR IMAGING TONSILLECTOMY (HISTORICAL) FAMILY HISTORY Family History Problem Relation Name Age of Onset No Known Problems Mother No Known Problems Father SOCIAL HISTORY Social History Tobacco Use Smoking status: Every Day Current packs/day: 1.00 Average packs/day: 1.4 packs/day for 31.2 years (45.0 ttl pk-yrs) Types: Cigarettes Start date: 1993 Passive exposure: Past Smokeless tobacco: Never Tobacco comments: Started at 28, 3 PPD, tapered down to 1 PPD in 2020 after quitting drinking. 10/27/24 Vaping Use Vaping status: Never Used Substance Use Topics Alcohol use: Not Currently Drug use: Never ALLERGIES Allergies Allergen Reactions Lisinopril Swelling and Angioedema MEDICATIONS Current Facility-Administered Medications on File Prior to Encounter Medication Dose Route Frequency Provider Last Rate Last Admin [DISCONTINUED] warfarin (Coumadin) tablet 4 mg Per G Tube Daily Generic External Data Provider Current Outpatient Medications on File Prior to Encounter Medication Sig Dispense Refill epoetin rowan-epbx (Retacrit) 89206 UNIT/ML injection Inject 0.79 mL (7,900 Units) under the skin 1 (one) time per week. heparin 100 units/mL in dextrose 5 % infusion Infuse 294.5-1,767 Units/hr into a venous catheter continuous. heparin 1000 units/mL injection Infuse 2 mL (2,000 Units) into a venous catheter as needed (heparin dosing algorithm). heparin 1000 units/mL injection Infuse 4 mL (4,000 Units) into a venous catheter as needed (per heparin dosing algorithm). ipratropium-albuterol (Duo-Neb) 0.5-2.5 mg/3 mL nebulizer solution Take 3 mL by nebulization every 8 hours. Lidocaine 4 % patch Apply 1 patch topically daily. melatonin 5 MG tablet 1 tablet (5 mg) by Per G Tube route Nightly as needed (insomnia). metoprolol tartrate (Lopressor) 25 MG tablet 1 tablet (25 mg) by Per G Tube route 2 times daily. midodrine (Proamatine) 5 MG tablet 3 tablets (15 mg) by Per G Tube route every 6 hours. pantoprazole (ProtoNix) 40 MG injection Infuse 40 mg into a venous catheter 2 times daily. QUEtiapine (SEROquel) 25 MG tablet 1 tablet (25 mg) by Per G Tube route Nightly. warfarin (Coumadin) 1 MG tablet Take as directed per After Visit Summary. REVIEW OF SYSTEMS Pertinent items are noted in HPI. Objective: BP 114/69 Pulse 98 Temp 36.2 C (97.1 F) Resp (!) 28 Ht 5' 10 (1.778 m) Wt 129 lb 13.6 oz (58.9 kg) SpO2 100% BMI 18.63 kg/m PHYSICAL EXAM General appearance: in no apparent distress, well developed and well nourished, in no respiratory distress and acyanotic, and alert Skin: warm and dry Pulmonary: Normal effort, no respiratory distress, no cyanosis Sacrum: 11x9x2.5cm with undermining around entire wound with deepest part measuring 4.5cm at 9 o'clock. Large serosang drainage noted. Wound bed with a mix of red tissue and adherent yellow slough. Mahnaz owud with nonblanchable erythema, fragile. 01/19/25 Left toes 1-4: Necrotic dry stable intact eschar with no drainage noted. Mahnaz wound with dry peeling flaky skin. 01/19/25 LABS CBC: Lab Results Component Value Date WBC 10.9 (H) 01/19/2025 HGB 9.4 (L) 01/19/2025 HCT 30.2 (L) 01/19/2025 MCV 87.8 01/19/2025 PLT 416 01/19/2025 BMP: Lab Results Component Value Date NA 135 (L) 01/19/2025 K 4.4 01/19/2025 CL 95 (L) 01/19/2025 CO2 25 01/19/2025 BUN 80 (H) 01/19/2025 CREATININE 3.50 (H) 01/19/2025 PT/INR: Lab Results Component Value Date PROTIME 26.6 (H) 01/19/2025 INR 2.7 (H) 01/19/2025 Prealbumin: No results found for: PREALBUMIN Albumin:No components found for: LABALBU Sed Rate:No results found for: SEDRATE Micro: No components found for: BC Assessment/Plan: Nursing staff to perform dressing change: Sacrum: Pressure Injury Stage 4 (POA) -cleanse with NS, apply santyl followed by Maxorb, cover with dry clean dressing daily and PRN. -Envella bed -waffle chair cushion -Q2hr/PRN turns -glide sheets for T&R -continence checks Q1-2 Hrs/PRN Left toes 1-4: Arterial Ulcer (Unknown) -cleanse with NS, apply Betadine and allow to dry, leave TISHA daily and PRN -Recommend PVRs for circulation check Nutritional support Wound Care to follow Recommend to follow up at [facility] wound care center after hospital discharge. Any questions or concerns please secure chat [facility] wound/ostomy. Thank you for the consult! I personally obtained the francis and critical portions of the history and physical exam. I reviewed the labs, imaging studies, and electronic medical record. I reviewed the chart documentation and discussed the patient with treatment team members. I have edited the note to reflect my clinical findings and my assessment and plan. Please note, the time of this note does not reflect the time I saw this patient today, but the time of this documentaton. Portions of this note including HPI, ROS, impression/plan, and examination may have been copied forward from admission to today as to provide important historical information essential in contributing to medical decision making. Documentation has been reviewed and edited as necessary to support clinical decision making for today's visit and to reflect my own independent evaluation of this patient. Decision making for today's visit and to reflect my own independent evaluation of this patient. Cosigned by Ahsan Gill DO at 01/22/2025 4:05 PM EDT documented in this encounter [facility] 01-19-2025 History and physical note Images from the original note were not included. Internal Medicine: MICU Initial History and Physical Name: Jun Snyder : 1965(59 y.o.) Date: 01/19/25 Attending: Dr. Nguyen Subjective: Chief Complaint: Trach dislodgement HPI: Patient is a 59 yo male with a PMH of Trach and peg, HTN, paroxysmal a-fib, R occipital ICH, Tobacco abuse, ARF - dialysis (TTS; LUE AVF), diverticulosis, IgA nephropathy, severe that presented to [facility] ED from a facility due to trach dislodgement. Per patient, was trying to disconnect his vent to transfer to another room but accidentally pulled out his tracheostomy. This event happened approximately 45 minutes before ED arrival. ED attempted to place tracheostomy tube back but were unsuccessful. Decision was made to transfer patient to [facility] ICU for further airway management and determine if replacement tracheostomy is needed. Upon seeing the patient, was A&Ox4, but was complaining of SOB with chest pressure and left sided chest pain that is stabbing in nature. Girlfriend bedside and patient states this has been an on going issues since he was coded back in Sep. Otherwise than that patient has no complaints. Girlfriend is concerned about patient mentation, but states he has been like this since his ICH. Past Medical History: Diagnosis Date Acute renal failure (ARF) ([facility]) 10/19/2019 Anemia 12/30/2021 Calcification of abdominal aorta ([facility]) 10/08/202309/[address] abd Diverticulosis 10/08/2023 ESRD on hemodialysis ([facility]) ([facility]) 10/26/2019 Hemodialysis patient ([facility]) ([facility]) HTN (hypertension) 12/01/2022 Hypertension IgA nephropathy 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 10/26/2019 Missed vaccination due to patient refusal 10/08/2023 Has a number of non-scientific based beliefs which interfere with his understanding and acceptance of the medical benefit of vaccination. Nonrheumatic aortic valve stenosis 10/08/2023 Paroxysmal A-fib ([facility]) ([facility]) 08/18/2023 Tobacco abuse 10/08/2023 Past Surgical History: Procedure Laterality Date APPENDECTOMY CARDIAC CATHETERIZATION N/A 10/09/2024 Performed by Bob Watson MD at [facility] Cardiac Cath/EP Lab CARDIAC CATHETERIZATION Bilateral 11/01/2024 Performed by Bob Watson MD at [facility] Cardiac Cath/EP Lab CARDIAC CATHETERIZATION N/A 11/01/2024 Performed by Bob Watson MD at [facility] Cardiac Cath/EP Lab FISTULAGRAM (HISTORICAL) Left 09/15/2021 LEFT UPPER ARM HX AV FISTULA CREATION IR EMBOLIZATION 10/14/2024 IR EMBOLIZATION 10/14/2024 [facility] SPECIAL PROCEDURES IR FISTULAGRAM 08/07/2022 IR FISTULAGRAM 08/07/2022 [facility] IR IMAGING TONSILLECTOMY (HISTORICAL) Family History Problem Relation Name Age of Onset No Known Problems Mother No Known Problems Father Social History Socioeconomic History Marital status: Spouse name: Not on file Number of children: Not on file Years of education: Not on file Highest education level: Not on file Occupational History Not on file Tobacco Use Smoking status: Every Day Current packs/day: 1.00 Average packs/day: 1.4 packs/day for 31.2 years (45.0 ttl pk-yrs) Types: Cigarettes Start date: 1993 Passive exposure: Past Smokeless tobacco: Never Tobacco comments: Started at 28, 3 PPD, tapered down to 1 PPD in 2020 after quitting drinking. 10/27/24 Vaping Use Vaping status: Never Used Substance and Sexual Activity Alcohol use: Not Currently Drug use: Never Sexual activity: Not on file Other Topics Concern Not on file Social History Narrative Not on file Social Drivers of Health Financial Resource Strain: Patient Unable To Answer (12/01/2024) Received from [facility] Overall Financial Resource Strain (CARDIA) Difficulty of Paying Living Expenses: Patient unable to answer Food Insecurity: Patient Unable To Answer (12/01/2024) Received from [facility] Hunger Vital Sign Worried About Running Out of Food in the Last Year: Patient unable to answer Ran Out of Food in the Last Year: Patient unable to answer Transportation Needs: No Transportation Needs (01/18/2025) Received from [facility] Transportation Source Has lack of transportation kept you from medical appointments or from getting medications?: No Has lack of transportation kept you from meetings, work, or from getting things needed for daily living?: No Physical Activity: Not on file Stress: No Stress Concern Present (01/18/2025) Received from [facility] of Occupational Health - Occupational Stress Questionnaire Feeling of Stress : Not at all Social Connections: Patient Unable To Answer (12/01/2024) Received from [facility] Social Connection and Isolation Panel [NHANES] Frequency of Communication with Friends and Family: Patient unable to answer Frequency of Social Gatherings with Friends and Family: Patient unable to answer Attends Bahai Services: Patient unable to answer Active Member of Clubs or Organizations: Patient unable to answer Attends Club or Organization Meetings: Patient unable to answer Marital Status: Patient unable to answer Intimate Partner Violence: Patient Unable To Answer (11/28/2024) Received from [facility] Domestic Abuse Assessment Do you feel safe in your relationships at home?: Unable to assess Physical Abuse: Unable to assess [facility] Domestic Abuse - Type of Abuse: Not on file [facility] Domestic Abuse - Time Frame: Not on file [facility] Domestic Abuse - Signs and Symptoms: Not on file Verbal Abuse: Unable to assess [facility] Domestic Abuse - Reported To: Not on file Housing Stability: Patient Unable To Answer (12/01/2024) Received from [facility] Housing Stability Vital Sign Unable to Pay for Housing in the Last Year: Patient unable to answer Number of Times Moved in the Last Year: 0 Homeless in the Last Year: Patient unable to answer Allergies Allergen Reactions Lisinopril Swelling and Angioedema Prior to Admission medications Medication Sig Start Date End Date Taking? Authorizing Provider epoetin rowan-epbx (Retacrit) 46835 UNIT/ML injection Inject 0.79 mL (7,900 Units) under the skin 1 (one) time per week. 12/04/24 DENIA Girard CNP heparin 100 units/mL in dextrose 5 % infusion Infuse 294.5-1,767 Units/hr into a venous catheter continuous. 11/28/24 DENIA Girard CNP heparin 1000 units/mL injection Infuse 2 mL (2,000 Units) into a venous catheter as needed (heparin dosing algorithm). 11/28/24 DENIA Girard CNP heparin 1000 units/mL injection Infuse 4 mL (4,000 Units) into a venous catheter as needed (per heparin dosing algorithm). 11/28/24 DENIA Girard CNP ipratropium-albuterol (Duo-Neb) 0.5-2.5 mg/3 mL nebulizer solution Take 3 mL by nebulization every 8 hours. 11/28/24 11/28/25 DENIA Girard CNP Lidocaine 4 % patch Apply 1 patch topically daily. 11/29/24 DENIA Girard CNP melatonin 5 MG tablet 1 tablet (5 mg) by Per G Tube route Nightly as needed (insomnia). 11/28/24 DENIA Girard CNP metoprolol tartrate (Lopressor) 25 MG tablet 1 tablet (25 mg) by Per G Tube route 2 times daily. 11/28/24 11/28/25 DENIA Girard CNP midodrine (Proamatine) 5 MG tablet 3 tablets (15 mg) by Per G Tube route every 6 hours. 11/28/24 12/28/24 DENIA Girard CNP pantoprazole (ProtoNix) 40 MG injection Infuse 40 mg into a venous catheter 2 times daily. 11/28/24 DENIA Girard CNP QUEtiapine (SEROquel) 25 MG tablet 1 tablet (25 mg) by Per G Tube route Nightly. 11/28/24 12/28/24 DENIA Girard CNP warfarin (Coumadin) 1 MG tablet Take as directed per After Visit Summary. 11/28/24 DENIA Girard CNP Objective: Oxygen Delivery: VITALS: BP 93/67 (BP Location: Right arm, Patient Position: Lying) Pulse 97 Temp 36.4 C (97.5 F) (Temporal) Resp (!) 26 SpO2 100% CURRENT PULSE OXIMETRY: SpO2: 100 % Review of Systems Constitutional: Negative for chills and fever. Respiratory: Positive for chest tightness and shortness of breath. Cardiovascular: Positive for chest pain. Gastrointestinal: Negative for abdominal pain, nausea and vomiting. Musculoskeletal: Positive for back pain. Skin: Positive for wound. Neurological: Negative for dizziness, weakness, light-headedness, numbness and headaches. Psychiatric/Behavioral: Positive for confusion (patient states he does feel foggy). Constitutional: General Appearance [x]WDWN []Obese []Cachectic [x]Thin []Ill Eyes: Inspection of Pupils/Irises Pupils round and react: [x]Yes []No Sclera: []Icteric [x]Non-Icteric Inspection of Conjunctiva/Lids Conjunctiva: []Injected [x]Non-Injected Lids: [x]Intact []Lesion Present ENT/Mouth: External Inspection of ears/nose [x] Normal [] Scar/Lesion/Mass Inspection of teeth/lips/gums Dentition: [][place] Teeth []Dentures Lips/Gums: []Intact []Lesion Present Mucosa: [][place] []Moist []Dry Neck: External Appearance Tracheostomy hole Overall Appearance: [x]Normal []Lesion/Mass/Crepitus Present Trachea midline: [x]Yes []No Thyroid []Normal []Enlarged []Tender []Mass []Absent Respiratory: Respiratory effort []Labored [x]Non-Labored [] Mechanically-Ventilated Auscultation [x]Clear []Crackles []Wheezes [][place] Cardiovascular: Auscultation Rate: [x]Regular []Irregular []Tachycardia []Bradycardia Rhythm: [x]Regular []Irregular Murmur: [x]Present []Absent Extremities Peripheral Edema: []Present [x]Absent Varicosities: []Present [x]Absent Gastrointestinal: Abdomen Palpation: [x]Soft []Firm []Tender [x]Non-Tender []Distended [x]Non-distended Mass: []Present [x]Absent Bowel Sounds: [x]Present []Absent Hernia: []Present []Absent Liver/Spleen: []Hepatosplenomegaly []Organomegaly Absent Musculoskeletal: Inspection of Digits and Nails Cyanosis: []Present [x]Absent Clubbing: []Present [x]Absent Ischemia: [x]Present (L foot) []Absent Infection: []Present [x]Absent Extremities GUAN Equally: Except ([x]RUE [x]RLE [x]LUE [x]LLE) Strength/Tone: Intact and Normal ([x]RUE [x]RLE [x]LUE [x]LLE) Skin: Inspection [x]Normal []Rash []Lesion []Ulcer Palpation [x]Warm []Cool []Dry []Clammy []Nodules []Induration []Skin-tightening Cap-Refill: [] <3 sec [] >3 seconds (delayed) Neurologic: GCS EYE: 4 - Opens spontaneously GCS MOTOR: 6 - Obeys commands for movement GCS VERBAL: 5 - Oriented to person, place, time Total GCS: 15 [] Sensation grossly intact Psych: Mental Status Alert: [x]Yes [] No Oriented: []x0 []X1 []X2 [x]x3 Mood/Affect [x]Normal []Flat []Agitated []Depressed []Anxious []Calm []Sedated []NAD [facility] within last 24 hours- BMP: Recent Labs 01/19/25 0342 NA 135* K 4.4 CL 95* CO2 25 BUN 80* CREATININE 3.50* CALCIUM 10.6* LFTs: No results for input(s): AST, ALT, PROT, ALBUMIN, BILITOT, BILIRUBINU, ALKPHOS, LIPASE in the last 72 hours. Glucose: Recent Labs 01/19/25 034 GLUCOSE 85 Procal: No results for input(s): PROCAL in the last 72 hours. CBC: Recent Labs 01/19/25 0342 WBC 11.6* HGB 9.1* HCT 29.1* PLT 404 MCV 87.4 RDW 18.5* ABGs: No results for input(s): PHART, ZMP4RHE, PO2ART, LRL4GVH, SO2ART, Y0ZNVPUH in the last 72 hours. Lactic Acid: No results for input(s): LACTATE in the last 72 hours. INR: Recent Labs 01/17/25 0317 01/18/25 0238 INR 1.9* 2.1* Cardiac Injury Profile: No results for input(s): CKTOTAL, CKMB, TROPONINI in the last 72 hours. Labs in Last 3 months: Lab Results Component Value Date TSH 1.190 08/17/2023 INR 2.1 (H) 01/18/2025 Microbiology- Urine Cx: No results found for: URINECX Blood Cx: Lab Results Component Value Date BLOODCX No growth at 5 days 01/01/2025 Sputum Cx: Lab Results Component Value Date RESPCULT Rare respiratory ila present. 12/30/2024 RESPCULT Many Staphylococcus aureus (A) 12/30/2024 Gram Stain: Lab Results Component Value Date LABGRAM (A) 01/02/2025 Many Polymorphonuclear leukocytes per low power field LABGRAM Many Gram positive cocci (A) 01/02/2025 LABGRAM Moderate Gram positive bacilli (A) 01/02/2025 PNA PCR: Lab Results Component Value Date HUMANMETAPNE Not Detected 11/15/2024 COVID19: No results found for: COVID19 Legionella Ag: Lab Results Component Value Date LEGIONELLAPN Not Detected 11/14/2024 Strep Ag: No results for input(s): STREPPNEUMO in the last 72 hours. Imaging- XR chest 1 view Final Result 1. Lingular infiltrate. 2. Prominence of the central pulmonary vasculature consistent with mild congestive heart failure/fluid overload. 3. Overall significant improvement in the aeration of the lungs when compared to the previous study. Report Dictated on Electronically Signed By: Delon Torres MD Electronically Signed Date/Time: 01/19/2025 6:16 AM EDT Assessment and Plan: Principal Problem: Complication of tracheostomy (CMS/HCC) ([facility]) Assessment: Trach dislodgement Chest pain ESRD Chronic anemia Hx of R occipital ICH A.fib Severe Hx of Plan: Admit to ICU for observation and airway watch Continue home medications, reach out to facility for clarification of anticoagulation, per girlfriend was flipping back and forth between warfarin and heparin due to elevated INR Chest pain work-up with trops, EKG, CXR PT/OT Daily labs Nephro consult for HD Consider surgery consult for trach placement GI Prophylaxis: Pantoprazole IV DVT Prophylaxis: SCDs BMI Classification: There is no height or weight on file to calculate BMI. underweight BMI <18.5 Disposition: Remain in ICU Status Cosigned by Bruce Nguyen MD at 01/19/2025 5:23 PM EDT Associated attestation - Bruce Nguyen MD - 01/19/2025 5:23 PM EDT I have personally performed a [id number] diagnostic evaluation on this patient on date of service 01/19/25 . History, labs, imaging studies, and electronic medical record have been reviewed by me. This note documented by Steve Lassiter MD reflects my history, exam, and medical decision making. I have reviewed and agree with the care plan. Changes were made in the orders as necessary. ROS documentation was reviewed and negative unless otherwise stated in HPI. Chief Complaint: Tracheostomy dislodged Additional pertinent interval history, ROS, and physical exam findings: Mr. Jun Snyder is a 59 year old male with a history of a lengthy and complex hospitalization earlier this year (10/03 - 11/28). Brief summary of that course: 10/12/24: s/p AVR (23mm [employer]), YG with Dr. Montemayor 10/14/24: s/p PEA Arrest Hypovolemic Shock Code Intubated, EGD, GDA Embolization D1 10/15/24: L subclavian transvenous pacer placement 10/18/24: Extubated; reintubated 10/19/24 10/24/24: Extubated 11/01/24: Code Blue PEA arrest, re intubated started on CRRT 11/14/24: s/p Trach and Peg with Dr. Ramirez 11/16/24: OR for diagnostic laparoscopy, EGD, abhishek gastrostomy tube placement -- noted to have bile peritonitis 11/28/24: transferred to [facility] He continued on HD at [facility] Reportedly had ongoing issues with delirium according to his partner, Toma who was at bedside and provided history. Developed severe sacral ulcer and sacral ostomyelitis at [facility] He was progressing with E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 and using a PMV. Has not done any capping trials. Was transferred to a facility in [place]; there he inadvertently dislodged his tracheostomy. He initially presented to the [facility] emergency dept. He was transferred to [facility] in case of emergetn airway compromise. Assessment: Trach dislodgement, high risk of respiratory failure Chronic respiratory failure due to failure of airway protection ESRD Sacral osteomyelitis s/p AVR Full Code Plan: Admit to MICU Close monitorign for airway compromise Restart abx for osteomyelitis E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 eval; [facility] Critical Care Time: 33 minutes Total critical care time caring for this patient with life threatening, unstable organ failure, including direct patient contact, management of life support systems, review of data including imaging and labs, discussions with other team members and physicians, excluding procedures. Electronically signed by Bruce Nguyen MD documented in this encounter [facility] 01-19-2025 Emergency department Note EMERGENCY DEPARTMENT ENCOUNTER Pt Name: Jair Snyder Birthdate 1965 Date of evaluation: 01/19/2025 ED Provider: Lazaro Rojo MD CHIEF COMPLAINT Chief Complaint Patient presents with Tracheostomy Tube Change HISTORY OF PRESENT ILLNESS (Location/Symptom, Timing/Onset, Context/Setting, Quality, Duration, Modifying Factors, Severity) Note limiting factors. I wore appropriate PPE for the entirety of this encounter. HPI Jair Snyder is a 59 y.o. who presents to the emergency department From custodial facility for accidental dislodgment of his tracheostomy tube. Patient states he was trying to disconnect his vent to moved to another room but accidentally pulled out his tracheostomy. Per EMS this happened approximately 45 minutes prior to arrival to the ED. Has been satting well with no intervention with no respiratory distress. History of end-stage renal disease on dialysis, IgA nephropathy, hypertension, and currently being treated at custodial facility with IV antibiotics for multiple infected wounds to include dry gangrene on the left foot and sacral ulcers. Patient denies any other complaints. Nursing Notes were reviewed. Limitations to history: None Outside historians: EMS REVIEW OF SYSTEMS Review of Systems All other systems reviewed and are negative. Pertinent positives and negatives as per HPI. PAST MEDICAL HISTORY Past Medical History: Diagnosis Date Acute renal failure (ARF) ([facility]) 10/19/2019 Anemia 12/30/2021 Calcification of abdominal aorta ([facility]) 10/08/202309/[address] abd Diverticulosis 10/08/2023 ESRD on hemodialysis ([facility]) ([facility]) 10/26/2019 Hemodialysis patient ([facility]) ([facility]) HTN (hypertension) 12/01/2022 Hypertension IgA nephropathy 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 10/26/2019 Missed vaccination due to patient refusal 10/08/2023 Has a number of non-scientific based beliefs which interfere with his understanding and acceptance of the medical benefit of vaccination. Nonrheumatic aortic valve stenosis 10/08/2023 Paroxysmal A-fib ([facility]) ([facility]) 08/18/2023 Tobacco abuse 10/08/2023 SURGICAL HISTORY Past Surgical History: Procedure Laterality Date APPENDECTOMY CARDIAC CATHETERIZATION N/A 10/09/2024 Performed by Bob Watson MD at [facility] Cardiac Cath/EP Lab CARDIAC CATHETERIZATION Bilateral 11/01/2024 Performed by Bob Watson MD at [facility] Cardiac Cath/EP Lab CARDIAC CATHETERIZATION N/A 11/01/2024 Performed by Bob Watson MD at [facility] Cardiac Cath/EP Lab FISTULAGRAM (HISTORICAL) Left 09/15/2021 LEFT UPPER ARM HX AV FISTULA CREATION IR EMBOLIZATION 10/14/2024 IR EMBOLIZATION 10/14/2024 [facility] SPECIAL PROCEDURES IR FISTULAGRAM 08/07/2022 IR FISTULAGRAM 08/07/2022 [facility] IR IMAGING TONSILLECTOMY (HISTORICAL) CURRENT MEDICATIONS Previous Medications EPOETIN ROWAN-EPBX (RETACRIT) 91373 UNIT/ML INJECTION Inject 0.79 mL (7,900 Units) under the skin 1 (one) time per week. HEPARIN 100 UNITS/ML IN DEXTROSE 5 % INFUSION Infuse 294.5-1,767 Units/hr into a venous catheter continuous. HEPARIN 1000 UNITS/ML INJECTION Infuse 2 mL (2,000 Units) into a venous catheter as needed (heparin dosing algorithm). HEPARIN 1000 UNITS/ML INJECTION Infuse 4 mL (4,000 Units) into a venous catheter as needed (per heparin dosing algorithm). IPRATROPIUM-ALBUTEROL (DUO-NEB) 0.5-2.5 MG/3 ML NEBULIZER SOLUTION Take 3 mL by nebulization every 8 hours. LIDOCAINE 4 % PATCH Apply 1 patch topically daily. MELATONIN 5 MG TABLET 1 tablet (5 mg) by Per G Tube route Nightly as needed (insomnia). METOPROLOL TARTRATE (LOPRESSOR) 25 MG TABLET 1 tablet (25 mg) by Per G Tube route 2 times daily. MIDODRINE (PROAMATINE) 5 MG TABLET 3 tablets (15 mg) by Per G Tube route every 6 hours. PANTOPRAZOLE (PROTONIX) 40 MG INJECTION Infuse 40 mg into a venous catheter 2 times daily. QUETIAPINE (SEROQUEL) 25 MG TABLET 1 tablet (25 mg) by Per G Tube route Nightly. WARFARIN (COUMADIN) 1 MG TABLET Take as directed per After Visit Summary. ALLERGIES Lisinopril FAMILY HISTORY Family History Problem Relation Name Age of Onset No Known Problems Mother No Known Problems Father SOCIAL HISTORY Social History Socioeconomic History Marital status: Tobacco Use Smoking status: Every Day Current packs/day: 1.00 Average packs/day: 1.4 packs/day for 31.2 years (45.0 ttl pk-yrs) Types: Cigarettes Start date: 1993 Passive exposure: Past Smokeless tobacco: Never Tobacco comments: Started at 28, 3 PPD, tapered down to 1 PPD in 2020 after quitting drinking. 10/27/24 Vaping Use Vaping status: Never Used Substance and Sexual Activity Alcohol use: Not Currently Drug use: Never Social Drivers of Health Financial Resource Strain: Patient Unable To Answer (12/01/2024) Received from [facility] Overall Financial Resource Strain (CARDIA) Difficulty of Paying Living Expenses: Patient unable to answer Food Insecurity: Patient Unable To Answer (12/01/2024) Received from [facility] Hunger Vital Sign Worried About Running Out of Food in the Last Year: Patient unable to answer Ran Out of Food in the Last Year: Patient unable to answer Transportation Needs: No Transportation Needs (01/18/2025) Received from [facility] SDOH Transportation Source Has lack of transportation kept you from medical appointments or from getting medications?: No Has lack of transportation kept you from meetings, work, or from getting things needed for daily living?: No Stress: No Stress Concern Present (01/18/2025) Received from [facility] of Occupational Health - Occupational Stress Questionnaire Feeling of Stress : Not at all Social Connections: Patient Unable To Answer (12/01/2024) Received from [facility] Social Connection and Isolation Panel [NHANES] Frequency of Communication with Friends and Family: Patient unable to answer Frequency of Social Gatherings with Friends and Family: Patient unable to answer Attends Bahai Services: Patient unable to answer Active Member of Clubs or Organizations: Patient unable to answer Attends Club or Organization Meetings: Patient unable to answer Marital Status: Patient unable to answer Intimate Partner Violence: Patient Unable To Answer (11/28/2024) Received from [facility] Domestic Abuse Assessment Do you feel safe in your relationships at home?: Unable to assess Physical Abuse: Unable to assess Verbal Abuse: Unable to assess Housing Stability: Patient Unable To Answer (12/01/2024) Received from [facility] Housing Stability Vital Sign Unable to Pay for Housing in the Last Year: Patient unable to answer Number of Times Moved in the Last Year: 0 Homeless in the Last Year: Patient unable to answer SCREENINGS PHYSICAL EXAM ED Triage Vitals Temp Pulse Resp BP -- -- -- -- SpO2 Temp src Heart Rate Source Patient Position -- -- -- -- BP Location FiO2 (%) -- -- Physical Exam Vitals and nursing note reviewed. Exam conducted with a livestock exhibitor present. Constitutional: General: He is not in acute distress. Comments: Chronically ill and cachectic. HENT: Head: Normocephalic. Nose: Nose normal. Eyes: Conjunctiva/sclera: Conjunctivae normal. Cardiovascular: Rate and Rhythm: Normal rate and regular rhythm. Pulmonary: Effort: Pulmonary effort is normal. No respiratory distress. Breath sounds: Normal breath sounds. Abdominal: General: There is no distension. Palpations: Abdomen is soft. Tenderness: There is no abdominal tenderness. Feet: Comments: Dry gangrene of the toes of the left foot. Skin: General: Skin is warm and dry. Findings: Wound present. Comments: Decubitus ulcers as documented in the media tab. Neurological: Mental Status: He is alert and oriented to person, place, and time. Psychiatric: Mood and Affect: Mood normal. Behavior: Behavior normal. DIAGNOSTIC RESULTS Procedures/EKG: EKG was reviewed by myself. [facility] RADIOLOGY (Per Emergency Physician): Interpretation per the Radiologist below, if available at the time of this note: No orders to display ED BEDSIDE ULTRASOUND: Performed by ED Physician - none LABS: Labs Reviewed BASIC METABOLIC PANEL CBC WITH AUTO DIFFERENTIAL All other labs were within normal range or not returned as of this dictation. EMERGENCY DEPARTMENT COURSE and DIFFERENTIAL DIAGNOSIS/MDM: Vitals: Vitals: 01/19/25 0232 01/19/25 0236 BP: 93/57 BP Location: Right arm Patient Position: Lying Pulse: 95 Resp: 18 Temp: 36.6 C (97.8 F) TempSrc: Oral SpO2: 97% 99% Patient presents after accidental dislodgment of his tracheostomy tube at custodial facility as described in the HPI. Reportedly occurred approxiforty 5 minutes prior to arrival to the ED. On inspection of the tracheostomy site it appears to be beefy red with some swelling. The tract only appears 0.5 cm in diameter. We did attempt to replace the tracheostomy here in the ED but met significant resistance and patient experienced significant amount of pain. Suspicion that the tracheostomy tube has been out longer than reported. I consulted Dr. Ponce, general surgery. We discussed the case and since the patient seems to be maintaining his airway well with no respiratory distress or desaturations of his oxygen concentration no immediate intervention deemed necessary. Dr. Ponce recommended ICU admission to [facility] for observation with possible replacement tracheostomy if needed. ICU at [facility] was consulted and I spoke with Dr. Nguyen regarding admission to their service. He agrees with this indication and patient admitted to [facility] ICU. Diagnoses as of 01/19/25 0300 Complication of tracheostomy (CMS/HCC) (HCC) Medications - No data to display REVAL: CRITICAL CARE TIME Total Critical Care time was 10 minutes, excluding separately reportable procedures. There was a high probability of clinically significant/life threatening deterioration in the patient's condition which required my urgent intervention. CONSULTS: None PROCEDURES: Unless otherwise noted below, none Procedures Patients symptoms are consistent with sepsis, severe sepsis, or septic shock (If yes use .sepsiscoremeasure): No FINAL IMPRESSION 1. Complication of tracheostomy (CMS/HCC) ([facility]) DISPOSITION Admit 01/19/2025 03:00:18 AM PATIENT REFERRED TO: No follow-up provider specified. DISCHARGE MEDICATIONS: New Prescriptions No medications on file (Comment: Please note this report has been produced using speech recognition software and may contain errors related to that system including errors in grammar, punctuation, and spelling, as well as words and phrases that may be inappropriate. If there are any questions or concerns please feel free to contact the dictating provider for clarification.) Lazaro Rojo MD (electronically signed) Emergency Medicine Provider Lazaro Rojo MD 01/19/25 0301 Pt arrived Via EMS from [facility]. Pt removed his trach which he is typically on 5L. 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 He is NPO and receiving IV antibiotics for the results of his blood cultures. Pt was recently transferred to [place] from [facility]. Pt arrived with a pressure of 88/52 and 96% on room air. RT and MD at bedside upon arrival. documented in this encounter [facility] 01-18-2025 History of Presen t illness Narrative [facility] billing documented in this encounter [facility] 01-17-2025 History of Presen t illness Narrative Seen at [facility] documented in this encounter [facility] 01-17-2025 History of Presen t illness Narrative [facility] billing documented in this encounter [facility] 01-16-2025 History of Presen t illness Narrative [facility] documented in this encounter [facility] 01-15-2025 History of Presen t illness Narrative Seen at [facility] documented in this encounter [facility] 01-15-2025 History of Presen t illness Narrative [facility] documented in this encounter [facility] 01-14-2025 History of Presen t illness Narrative [facility] documented in this encounter [facility] 01-12-2025 History of Presen t illness Narrative [facility] documented in this encounter [facility] 01-12-2025 History of Presen t illness Narrative Seen at [facility] documented in this encounter [facility] 01-11-2025 History of Presen t illness Narrative [facility] documented in this encounter [facility] 01-11-2025 History of Presen t illness Narrative Seen at [facility] documented in this encounter [facility] 01-10-2025 History of Presen t illness Narrative [facility] documented in this encounter [facility] 01-09-2025 History of Presen t illness Narrative [facility] documented in this encounter [facility] 01-09-2025 History of Presen t illness Narrative Seen at [facility] documented in this encounter [facility] 01-08-2025 History of Presen t illness Narrative [facility] documented in this encounter [facility] 01-08-2025 History of Presen t illness Narrative Seen at [facility] documented in this encounter [facility] 01-05-2025 History of Presen t illness Narrative Patient seen by me at [facility]. Documentation including history, exam and plan documented in [facility]. This encounter is for billing only. documented in this encounter [facility] 01-05-2025 History of Presen t illness Narrative [facility] 01/05 documented in this encounter [facility] 01-04-2025 History of Presen t illness Narrative Patient seen by me at [facility]. Documentation including history, exam and plan documented in [facility]. This encounter is for billing only. documented in this encounter [facility] 01-04-2025 History of Presen t illness Narrative [facility] 01/04 documented in this encounter [facility] 01-03-2025 History of Presen t illness Narrative Patient seen by me at [facility]. Documentation including history, exam and plan documented in [facility]. This encounter is for billing only. documented in this encounter [facility] 01-03-2025 History of Presen t illness Narrative Pt seen at [facility]. Complete documentation under [facility] EMR. documented in this encounter [facility] 01-02-2025 History of Presen t illness Narrative Pt seen at [facility]. Complete documentation under [facility] EMR. documented in this encounter [facility] 01-02-2025 History of Presen t illness Narrative Patient seen by me at [facility]. Documentation including history, exam and plan documented in [facility] EMR. This encounter is for billing only. documented in this encounter [facility] 01-01-2025 History of Presen t illness Narrative Pt seen at [facility]. Complete documentation under [facility] EMR. documented in this encounter [facility] 01-01-2025 History of Presen t illness Narrative Patient seen by me at [facility]. Documentation including history, exam and plan documented in [facility]. This encounter is for billing only. documented in this encounter [facility] 01-01-2025 History of Presen t illness Narrative Subsequent visit today at [facility] documented in this encounter [facility] 12-30-2024 History of Presen t illness Narrative Pt seen at [facility]. Complete documentation under [facility] EMR. documented in this encounter [facility] 12-28-2024 History of Presen t illness Narrative Patient seen by me at [facility]. Complete documentation including history with assessment and plan were documented in [facility] EMR. This encounter is for billing only. documented in this encounter [facility] 12-27-2024 History of Presen t illness Narrative Patient seen by me at [facility]. Complete documentation including history with assessment and plan were documented in [facility] EMR. This encounter is for billing only. documented in this encounter [facility] 12-26-2024 History of Presen t illness Narrative Patient seen by me at [facility]. Complete documentation including history with assessment and plan were documented in [facility] EMR. This encounter is for billing only. documented in this encounter [facility] 12-22-2024 History of Presen t illness Narrative Patient seen by me at [facility] [place]. Complete documentation including history with assessment and plan were documented in [facility] EMR. This encounter is for billing only. documented in this encounter [facility] 12-21-2024 History of Presen t illness Narrative Patient seen by me at [facility] [place]. Complete documentation including history with assessment and plan were documented in [facility] EMR. This encounter is for billing only. documented in this encounter [facility] 12-20-2024 History of Presen t illness Narrative Patient seen by me at [facility] [place]. Complete documentation including history with assessment and plan were documented in [facility] EMR. This encounter is for billing only. documented in this encounter [facility] 12-19-2024 History of Presen t illness Narrative Patient seen by me at [facility] in [place]. Complete documentation including history with assessment and plan were documented in [facility] EMR. This encounter is for billing only. documented in this encounter [facility] 12-18-2024 History of Presen t illness Narrative Patient seen by me at [facility] in [place]. Complete documentation including history with assessment and plan were documented in [facility] EMR. This encounter is for billing only. documented in this encounter [facility] 12-15-2024 History of Presen t illness Narrative [facility] billing documented in this encounter [facility] 12-14-2024 History of Presen t illness Narrative [facility] billing documented in this encounter [facility] 12-14-2024 Telephone encount er Note Patient is still at [facility]. I spoke to Karla, major case detective, and she stated that patient has a tentative discharge date on 12/25. He will be going to a facility after that. Karla is not sure which one. I will check back with her closer to that date. [facility] 12-14-2024 Miscellaneous Notes Formattin g of this note might be different from the original. Patient is still at [facility]. I spoke to Karla, major case detective, and she stated that patient has a tentative discharge date on 12/25. He will be going to a facility after that. Karla is not sure which one. I will check back with her closer to that date. Called and spoke with patients son to discuss scheduling hospital follow up appointment. Omar advised me that the patient will be in the hospital mcc as a lot happened while he was hospitalized. Patient does not wish to schedule at this time. Thanks Attempted to call patient to schedule hospital follow up. Patients phone is restricted. Unable to lvm. Sent [employer] message. Thanks Will hold to contact patient s/p discharge. Thanks Pt remains admitted at this time. GI staff to contact pt for scheduling OV s/p discharge. Patient needs close follow up for repeat EGD for duodenal ulcer, had IR embolization of GDA. Currently in ICU. Thanks. documented in this encounter [facility] 12-13-2024 History of Presen t illness Narrative [facility] billing documented in this encounter [facility] 12-13-2024 Telephone encount er Note Called and spoke with patients son to discuss scheduling hospital follow up appointment. Omar advised me that the patient will be in the hospital mcc as a lot happened while he was hospitalized. Patient does not wish to schedule at this time. Thanks [facility] 12-13-2024 Miscellaneous Notes Formattin g of this note might be different from the original. Called and spoke with patients son to discuss scheduling hospital follow up appointment. Omar advised me that the patient will be in the hospital [facility] as a lot happened while he was hospitalized. Patient does not wish to schedule at this time. Thanks Attempted to call patient to schedule hospital follow up. Patients phone is restricted. Unable to lvm. Sent [employer] message. Thanks Will hold to contact patient s/p discharge. Thanks Pt remains admitted at this time. GI staff to contact pt for scheduling OV s/p discharge. Patient needs close follow up for repeat EGD for duodenal ulcer, had IR embolization of GDA. Currently in ICU. Thanks. documented in this encounter [facility] 12-12-2024 History of Presen t illness Narrative [facility] documented in this encounter [facility] 12-11-2024 History of Presen t illness Narrative Seen at [facility] 12/11/24 documented in this encounter [facility] 12-11-2024 History of Presen t illness Narrative [facility] documented in this encounter [facility] 12-11-2024 Telephone encount er Note Attempted to call patient to schedule hospital follow up. Patients phone is restricted. Unable to lvm. Sent MyChart message. Thanks [facility] 12-11-2024 Miscellaneous Notes Formattin g of this note might be different from the original. Attempted to call patient to schedule hospital follow up. Patients phone is restricted. Unable to lvm. Sent MyChart message. Thanks Will hold to contact patient s/p discharge. Thanks Pt remains admitted at this time. GI staff to contact pt for scheduling OV s/p discharge. Patient needs close follow up for repeat EGD for duodenal ulcer, had IR embolization of GDA. Currently in ICU. Thanks. documented in this encounter [facility] 12-07-2024 History of Presen t illness Narrative [facility] 12/07/24 documented in this encounter [facility] 12-06-2024 History of Presen t illness Narrative [facility] 12/06/24 documented in this encounter [facility] 12-04-2024 History of Presen t illness Narrative Follow-up visit today at [facility] documented in this encounter [facility] 12-04-2024 History of Presen t illness Narrative [facility] 12/04/24 documented in this encounter [facility] 12-01-2024 History of Presen t illness Narrative [facility] 12/01/24 documented in this encounter [facility] 12-01-2024 History of Presen t illness Narrative I did a level 4 consult on this patient [facility]. In reviewing Dr. Garcia's note she noted acute systolic right heart failure related to and accompanied by pulmonary hypertension. She noted the need for midodrine. Dr. Chow waited on atrial flutter and atrial tachycardia. He was put on amiodarone and attempt was YG cardioversion, unsuccessful. The last electrocardiogram done at the [facility] showed atrial flutter. documented in this encounter [facility] 12-01-2024 History of Presen t illness Narrative [facility] documented in this encounter [facility] 11-30-2024 History of Presen t illness Narrative [facility] documented in this encounter [facility] 11-30-2024 History of Presen t illness Narrative [facility] 11/30/24 documented in this encounter [facility] 11-29-2024 History of Presen t illness Narrative [facility] 11/29/24 documented in this encounter [facility] 11-29-2024 History of Presen t illness Narrative [facility] documented in this encounter [facility] 11-28-2024 Telephone encount er Note Name of Caller: Herminia Contact Physician requesting Consult: Michelle Caruso APRN Patient Location (facility name, room, bed number): [facility], [facility] Patient Diagnosis/Reason for Consult:SOB Provider being paged: Dr Nathan Time page was sent: [phone] Department of provider being paged: [facility] Page Content: routine consult requested. Message sent via Secure Chat [facility] 11-28-2024 Miscellaneous Notes Formattin g of this note might be different from the original. Name of Caller: Herminia Contact Physician requesting Consult: Michelle Caruso APRN Patient Location (facility name, room, bed number): [facility], 116 Patient Diagnosis/Reason for Consult:SOB Provider being paged: Dr Nathan Time page was sent: [phone] Department of provider being paged: [facility] Page Content: routine consult requested. Message sent via Secure Chat documented in this encounter [facility] 10-17-2024 Telephone encount er Note Will hold to contact patient s/p discharge. Thanks [facility] 10-17-2024 Miscellaneous Notes Formattin g of this note might be different from the original. Will hold to contact patient s/p discharge. Thanks Pt remains admitted at this time. GI staff to contact pt for scheduling OV s/p discharge. Patient needs close follow up for repeat EGD for duodenal ulcer, had IR embolization of GDA. Currently in ICU. Thanks. documented in this encounter [facility] 10-17-2024 Miscellaneous Notes Formattin g of this note might be different from the original. Will hold to contact patient s/p discharge. Thanks Pt remains admitted at this time. GI staff to contact pt for scheduling OV s/p discharge. Patient needs close follow up for repeat EGD for duodenal ulcer, had IR embolization of GDA. Currently in ICU. Thanks. documented in this encounter [facility] [employer] 10-17-2024 Telephone encount er Note Pt remains admitted at this time. GI staff to contact pt for scheduling OV s/p discharge. [facility] [employer] 10-16-2024 Telephone encount er Note Patient needs close follow up for repeat EGD for duodenal ulcer, had IR embolization of GDA. Currently in ICU. Thanks. [employer] Work Phone: 10-16-2024 Miscellaneous Notes Formattin g of this note might be different from the original. Patient needs close follow up for repeat EGD for duodenal ulcer, had IR embolization of GDA. Currently in ICU. Thanks. documented in this encounter [facility] [employer] 10-12-2024 Note Formatting of this n ote is different from the original. Patient: Jair Snyder Procedure Summary Date: 10/12/24 Room / Location: [facility] Operating Room Anesthesia Start: 725 Anesthesia Stop: 1126 Procedures: AORTIC VALVE REPLACEMENT (Chest) TRICUSPID REPLACEMENT WITH RING (Chest) TRANSESOPHAGEAL ECHOCARDIOGRAM Diagnosis: Aortic stenosis Surgeons: Luciano Montemayor MD Responsible Provider: DENIA Cannon CRNA Anesthesia Type: general ASA Status: 3 Anesthesia Type: general Vitals Value Taken Time BP 106/54 10/12/24 1133 Temp 97 10/12/24 1133 Pulse 80 10/12/24 1133 Resp 20 10/12/24 1133 SpO2 100 10/12/24 1133 Anesthesia Post Evaluation Patient location during evaluation: ICU Patient participation: complete - patient cannot participate Level of consciousness: intubated and sedated Pain management: adequate Airway patency: patent Dental Injury: no Cardiovascular status: acceptable and hemodynamically stable Respiratory status: acceptable, ETT, intubated and ventilator Hydration status: acceptable Nausea/Vomiting: controlled No notable events documented. Patient can be discharged once all PACU criteria has been met. [facility] 10-12-2024 Miscellaneous Notes Formattin g of this note is different from the original. Patient: Jair Snyder Procedure Summary Date: 10/12/24 Room / Location: [address] Operating Room Anesthesia Start: 725 Anesthesia Stop: 1126 Procedures: AORTIC VALVE REPLACEMENT (Chest) TRICUSPID REPLACEMENT WITH RING (Chest) TRANSESOPHAGEAL ECHOCARDIOGRAM Diagnosis: Aortic stenosis Surgeons: Luciano Montemayor MD Responsible Provider: DENIA Cannon CRNA Anesthesia Type: general ASA Status: 3 Anesthesia Type: general Vitals Value Taken Time BP 106/54 10/12/24 1133 Temp 97 10/12/24 1133 Pulse 80 10/12/24 1133 Resp 20 10/12/24 1133 SpO2 100 10/12/24 1133 Anesthesia Post Evaluation Patient location during evaluation: ICU Patient participation: complete - patient cannot participate Level of consciousness: intubated and sedated Pain management: adequate Airway patency: patent Dental Injury: no Cardiovascular status: acceptable and hemodynamically stable Respiratory status: acceptable, ETT, intubated and ventilator Hydration status: acceptable Nausea/Vomiting: controlled No notable events documented. Patient can be discharged once all PACU criteria has been met. documented in this encounter [facility] 10-12-2024 Anesthesiology Postoperative evaluation and management note Patient: Jair Snyder Procedure Summary Date: 10/12/24 Room / Location: [address] Operating Room Anesthesia Start: 725 Anesthesia Stop: 1126 Procedures: AORTIC VALVE REPLACEMENT (Chest) TRICUSPID REPLACEMENT WITH RING (Chest) TRANSESOPHAGEAL ECHOCARDIOGRAM Diagnosis: Aortic stenosis Surgeons: Luciano Montemayor MD Responsible Provider: DENIA Cannon CRNA Anesthesia Type: general ASA Status: 3 Anesthesia Type: general Vitals Value Taken Time BP 106/54 10/12/24 1131 Temp 97 10/12/24 1131 Pulse 80 10/12/24 1131 Resp 20 10/12/24 1131 SpO2 100 10/12/24 1131 Anesthesia Post Evaluation Patient participation: complete - patient cannot participate Post-procedure mental status: sedated/intubated. Pain score: 0 Pain management: adequate Multimodal analgesia pain management approach Airway patency: patent Two or more strategies used to mitigate risk of obstructive sleep apnea Cardiovascular status: hemodynamically stable Respiratory status: acceptable, intubated, ventilator and ETT Hydration status: acceptable No notable events documented. MIPS #430 PONV Patient received an inhalational anesthetic (4554F) Patient does not exhibit three or more risk factors for PONV (X0430)) MIPS # 424 Perioperative Temperature Management Anesthesia time was 60 minutes or longer (4255F) Anesthesai administered was General (inhalational or TIVA) or Neuraxial block (X0424) At least one body temperature greater than 95.8F/35.5C achieved within the 30 mins immediately prior to or the 15 minutes immediately following anesthesia end time (G9771) MIPS #477 Multimodal Pain Management Not emergent case Patient was not administered multimodal pain management (G2149) Intubated patient (G2149) MIPS #404 Anesthesiology Smoking Abstinence The patient is not a current smoker (e.g. cigarette, cigar, pipe, e-cigarette/vaping/marijuana) If no stop here (XX404) I completed my handoff to the receiving clinician during which we: 1. Identified the patient 2. Identified the responsible provider 3. Reviewed the pertinent medical history 4. Discussed the surgical course 5. Reviewed intra-op anesthesia management and issues during anesthesia 6. Set expectations for post-procedure period 7. Allowed opportunity for questions and acknowledgement of understanding. [employer] Phone: 10-12-2024 Surgical operatio n note Patient: Jair Snyder Procedure Summary Date: 10/12/24 Room / Location: [facility] Operating Room Anesthesia Start: 725 Anesthesia Stop: 1126 Procedures: AORTIC VALVE REPLACEMENT (Chest) TRICUSPID REPLACEMENT WITH RING (Chest) TRANSESOPHAGEAL ECHOCARDIOGRAM Diagnosis: Aortic stenosis Surgeons: Luciano Montemayor MD Responsible Provider: DENIA Cannon CRNA Anesthesia Type: general ASA Status: 3 Anesthesia Type: general Vitals Value Taken Time BP 106/54 10/12/24 1131 Temp 97 10/12/24 1131 Pulse 80 10/12/24 1131 Resp 20 10/12/24 1131 SpO2 100 10/12/24 1131 Anesthesia Post Evaluation Patient participation: complete - patient cannot participate Post-procedure mental status: sedated/intubated. Pain score: 0 Pain management: adequate Multimodal analgesia pain management approach Airway patency: patent Two or more strategies used to mitigate risk of obstructive sleep apnea Cardiovascular status: hemodynamically stable Respiratory status: acceptable, intubated, ventilator and ETT Hydration status: acceptable No notable events documented. MIPS #430 PONV Patient received an inhalational anesthetic (4554F) Patient does not exhibit three or more risk factors for PONV (X0430)) MIPS # 424 Perioperative Temperature Management Anesthesia time was 60 minutes or longer (4255F) Anesthesai administered was General (inhalational or TIVA) or Neuraxial block (X0424) At least one body temperature greater than 95.8F/35.5C achieved within the 30 mins immediately prior to or the 15 minutes immediately following anesthesia end time (G9771) MIPS #477 Multimodal Pain Management Not emergent case Patient was not administered multimodal pain management (G2149) Intubated patient (G2149) MIPS #404 Anesthesiology Smoking Abstinence The patient is not a current smoker (e.g. cigarette, cigar, pipe, e-cigarette/vaping/marijuana) If no stop here (XX404) I completed my handoff to the receiving clinician during which we: 1. Identified the patient 2. Identified the responsible provider 3. Reviewed the pertinent medical history 4. Discussed the surgical course 5. Reviewed intra-op anesthesia management and issues during anesthesia 6. Set expectations for post-procedure period 7. Allowed opportunity for questions and acknowledgement of understanding. Associated Order(s): Central Venous Line Central Venous Line: Date/Time: 10/12/2024 7:38 AM A central venous line was placed in the Procedural for the following indication(s): Sterility preparation included the following: provider hand hygiene performed prior to central venous catheter insertion, all 5 sterile barriers used (gloves, gown, cap, mask, large sterile drape) during central venous catheter insertion, antiseptic used during central venous catheter insertion and skin prep agent completely dried prior to procedure. The patient was placed in Trendelenburg position. Right The site was prepped with Chlorhexidine. Size: 8.5 Fr Catheter type: introducer with PA Catheter Number of Lumens: triple lumen During the procedure, the following specific steps were taken: target vein identified, needle advanced into vein and blood aspirated and guidewire advanced into vein. Procedure performed using ultrasound guidance - Image permanently retained with wire or catheter in vein. Sterile gel and probe cover used in ultrasound-guided central venous catheter insertion. Intravenous verification was obtained by ultrasound. Post insertion care included: all ports aspirated, all ports flushed easily, guidewire removed intact, Biopatch applied, line sutured in place and dressing applied. During the procedure the patient experienced: patient tolerated procedure well with no complications. A non-oximetric, 7.5 FR (size) Pulmonary Artery Catheter (PAC) was placed through the Introducer CVL in the right internal jugular vein. The PAC placement was confirmed by pressure tracing changes and secured at 49 cm (depth). The patient experienced the following events during the procedure: no complications. Staffing Performed: ORDNANCE TECHNICIAN Resident/ORDNANCE TECHNICIAN: Rudolph German CRNA Associated Order(s): Airway Airway Date/Time: 10/12/2024 7:38 AM Urgency: scheduled Airway not difficult General Information and Staff Patient location during procedure: Procedural Anesthesiologist: Vincent Wilson MD Resident/ORDNANCE TECHNICIAN: Rudolph German CRNA Performed: anesthesiologist Indications and Patient Condition Indications for airway management: airway protection and anesthesia Sedation level: Asleep Preoxygenated: yes Patient position: sniffing MILS maintained throughout Mask difficulty assessment: 1 - vent by mask Final Airway Details Final airway type: endotracheal airway Successful airway: ETT Cuffed: yes Successful intubation technique: direct laryngoscopy Endotracheal tube insertion site: oral Blade: Bustamante Blade size: #3 ETT size (mm): 8.0 Cormack-Lehane Classification: grade IIa - partial view of glottis Placement verified by: capnometry Measured from: lips ETT to lips (cm): 21 Number of attempts at approach: 1 Associated Order(s): Arterial Line Arterial Line: Date/Time: 10/12/2024 7:37 AM An arterial line was placed Procedure performed using ultrasound guidance - Image permanently retained with wire or catheter in vein.in the Procedural for the following indication(s): continuous blood pressure monitoring and blood sampling needed. A 20 gauge (size), 1 and 3/4 inch (length), Arrow (type) catheter was placed, into the Right radial artery, secured by Tegaderm and tape. Events: patient tolerated procedure well with no complications. Staffing Performed: ORDNANCE TECHNICIAN Resident/ORDNANCE TECHNICIAN: Rudolph German CRNA Patient: Jair Snyder Procedure Information Date/Time: 10/12/24 0730 Procedures: AORTIC VALVE REPAIR, POSSIBLE REPLACEMENT (Chest) - 7:30 am, 5 hours TRICUSPID REPLACEMENT WITH RING (Chest) TRANSESOPHAGEAL ECHOCARDIOGRAM Location: [facility] [address] [place] [address] Operating Room Surgeons: Luciano Montemayor MD Relevant Problems Cardio (+) Aortic stenosis (+) Atrial flutter, unspecified type (HCC) (+) Calcification of abdominal aorta (HCC) (+) HTN (hypertension) (+) Nonrheumatic aortic valve stenosis (+) Paroxysmal A-fib (CMS/HCC) (HCC) GI (+) Diverticulosis /Renal (+) ESRD on hemodialysis (CMS/HCC) (HCC) (+) 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 Past Medical History: Past Medical History: 10/19/2019: Acute renal failure (ARF) (HCC) 12/30/2021: Anemia 10/08/2023: Calcification of abdominal aorta (HCC) Comment: 09/[address] abd 10/08/2023: Diverticulosis 10/26/2019: ESRD on hemodialysis (CMS/HCC) (HCC) No date: Hemodialysis patient (CMS/HCC) (HCC) 12/01/2022: HTN (hypertension) No date: Hypertension No date: IgA nephropathy 10/26/2019: 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 10/08/2023: Missed vaccination due to patient refusal Comment: Has a number of non-scientific based beliefs which interfere with his understanding and acceptance of the medical benefit of vaccination. 10/08/2023: Nonrheumatic aortic valve stenosis 08/18/2023: Paroxysmal A-fib (CMS/HCC) ([facility]) 10/08/2023: Tobacco abuse Past Surgical History: Past Surgical History: No date: APPENDECTOMY 10/09/2024: CARDIAC CATHETERIZATION; N/A Comment: Performed by Bob Watson MD at [facility] Cardiac Cath/EP Lab 09/15/2021: FISTULAGRAM (HISTORICAL); Left Comment: LEFT UPPER ARM No date: HX AV FISTULA CREATION 08/07/2022: IR FISTULAGRAM Comment: IR FISTULAGRAM 08/07/2022 SB IR IMAGING No date: TONSILLECTOMY (HISTORICAL) Social History: TOBACCO: reports that he has been smoking cigarettes. He has never used smokeless tobacco. ETOH: reports that he does not currently use alcohol. Social History Substance and Sexual Activity Drug Use Never Family History: Family History Problem Relation Name Age of Onset No Known Problems Mother No Known Problems Father Screening: unknown Clinical information reviewed: Tobacco Allergies Meds Med Hx Surg Hx Fam Hx Soc Hx Physical Exam Airway Mallampati: II TM distance: >3 FB Neck ROM: full Cardiovascular Dental (+) Upper Dentures, Lower Dentures, edentulous Pulmonary Abdominal Anesthesia Plan patient is NPO appropriate Any family history or previous problems with anesthesia no ASA 3 general Any family history or previous problems with anesthesia no The patient is not a current smoker. Patient did not smoke on day of procedure. Anesthetic plan and risks discussed with patient. MITZI Screening Labs: Lab Results Component Value Date WBC 6.6 10/11/2024 HGB 9.5 (L) 10/11/2024 HCT 29.8 (L) 10/11/2024 MCV 98.3 10/11/2024 PLT 195 10/11/2024 Lab Results Component Value Date NA 137 10/11/2024 K 4.1 10/11/2024 CL 96 (L) 10/11/2024 CO2 34 (H) 10/11/2024 BUN 27 (H) 10/11/2024 CREATININE 4.82 (H) 10/11/2024 GLUCOSE 105 (H) 10/11/2024 CALCIUM 10.2 10/11/2024 PROT 6.5 10/11/2024 ALKPHOS 142 10/11/2024 AST 78 (H) 10/11/2024 ALT 46 (H) 10/11/2024 EGFR 13.2 (L) 10/11/2024 Pain Score: 0 - No pain Transthoracic echocardiogram (TTE) complete with contrast, bubble, strain, and 3D PRN Result Date: 10/04/2024 Left Ventricle: Left ventricle size is normal. Mildly increased wall thickness. Mildly reduced left ventricular systolic function. EF by 2D Simpsons Biplane is 40%. Unable to assess wall motion. Diastolic function indeterminate in the setting of atrial fibrillation. Right Ventricle: Right ventricle is moderately dilated. Increased wall thickness. Mildly reduced systolic function. Aortic Valve: Not well visualized. Severely calcified cusps. No regurgitation. Severe stenosis of the aortic valve. AV mean gradient is 42 mmHg. AV peak velocity is 4.1 m/s. AV Velocity Ratio is 0.15. LVOT:AV VTI Index is 0.13. AV area by continuity VTI is 0.5 cm2. Stroke volume index is 17.4 mL/m2. Mitral Valve: MV mean gradient is 6 mmHg. Thickened leaflets. Moderately calcified leaflets. Mild to moderate (1-2+) regurgitation. Mild stenosis noted. MV mean gradient is 6 mmHg. MV PHT is 61.2 ms. MV area by PHT is 3.6 cm2. Tricuspid Valve: Not well visualized. Mildly calcified leaflets. Annular dilation. Severe (4+) regurgitation with a centrally directed jet. Reversed hepatic vein systolic flow. RVSP may be underestimated in the setting of severe TR. RVSP is 41 mmHg. Left Atrium: Left atrium size is moderately increased (LA volume index 42-48 mL/m2).LA Vol Index A/L is 46 mL/m2. Right Atrium: Right atrium is severely dilated. IVC/SVC: IVC diameter is dilated and decreases less than 50% during inspiration; therefore the estimated right atrial pressure is elevated (~15 mmHg). 10/03/24 ECG 12-LEAD 10/10/2024 10:45 AM (Final) Impression Atrial flutter Electronically Signed On 01-14-2025 10:45:28 EST by Jayjay Garcia Signed by: Jayjay Garcia on 10/10/2024 10:45 AM Equipment Requests: Additional Equipment Requests documented in this encounter [facility] 10-12-2024 Procedure anesthe jaki Narrative Procedure Name Responsible Anesthesiologist Anesthesia Start Time Anesthesia Stop Time AORTIC VALVE REPLACEMENT (Chest) Vincent Wilson MD 10/12/24 0726 10/12/24 1127 Events Date Time Event Comment 10/12/2024 0605 AN Preop Started 0656 0726 In Room 0726 An Start 0726 An Start Data 0727 Perfusion Start 0736 An Induction The patient was reevaluated immediately before moderate or deep sedation use and before anesthesia induction. 0738 An Intubation 0738 Anesthesia Ready 0758 AN YG Placed By: Dr. Thurman placed and interpreted YG 0819 Proc Start 0848 ACT Adequate for CPB 0850 Art Line Pulse/Test 0850 An CV Bypass init 0853 An Clamp On 0855 Drift Start 0902 HC (UF) Start 0930 Anibal Patient on dial ysis; Anuric 0934 Drift Stop 0935 AN Active Warm 1001 An Clamp Off 1002 HC (UF) Stop 1013 Anibal Weaning from CP B 1015 An CV Bypass Ended 1050 Anibal CO: 5.78 CI: 2. 73 SVR: 802 1053 Perfusion Stop 1105 Proc Fin 1116 an stop data 1118 Out of Room 1127 An Stop Meds Name Total midazolam (Versed) injection 2 mg/2 mL 2 mg fentaNYL (Sublimaze) injection 20 mL 650 mcg lidocaine PF (Xylocaine-MPF) local injec tion 2 % 60 mg etomidate (Amidate) injection 20 mg rocuronium (ZeMuron) 50 mg/5 mL injectio n 140 mg esmolol (Brevibloc) 5 mg phenylephrine syringe 1 mg/ 10 mL syring e (IV Push for HYPOTENSION) 200 mcg EPINEPHrine 5mg in 0.9% sodium chloride 250 mL infusion (weight-based) 0.01 mg protamine injection 480 mg dexAMETHasone (Decadron) PF injection 10 mg/mL 4 mg propofol (Diprivan) infusion 10 mg/mL 41 .32 mg perfusion prime builder 910 mL heparin (PORCINE) 1,000 units/mL injecti on 10,000 Units heparin injection 1,000 units/mL 38,000 Units phenylephrine (LINDEN-SYNEPHRINE) injection 1,000 mcg ceFAZolin (Ancef) vial 1 g 3 g vancomycin (Vancocin) vial for injection 1g 1 g aminocaproic acid (Amicar) 10g in sodium chloride 0.9% 290 mL infusion 7.62 g calcium chloride 10% IV syringe 1,000 mg albumin human 25 % 25 g nitroglycerin 100 mcg/mL vial for Intra- op/IntraProcedure use 50 mcg sodium chloride 0.9 % infusion 600 mL * Agents Name O2 Sevoflurane Isoflurane * Blood Name Total PLATELETS 250 mL Lines, Drains, and Airways Type Details Placement Removal Hemodialysis Arteriovenous Fistula Placement Date: 08/17/23; Placement Time: 1107 08/17/23 1107 by Jayesh Sotomayor RN Wound/Incision 10/09/24; 0330; Othe r (puncture heart cath); Leg; Anterior, Proximal, Right, Upper; right groin puncture 10/09/24 0330 by Keyla Jon RN Introducer Placement Date: 10/12/24; Placement Time: 0738 (created via procedure documentation); Location: Internal jugular; Orientation: Right 10/12/24 0738 by Rudolph German CRNA Wound/Incision 10/12/24; 0823; Incision; Sternum 10/12/24 0823 by Tracie Pacheco RN Chest Tube Placement Date: 10/12/24; Placement Time: 1024; Inserted by: MONTEMAYOR; Tube Number: 1; Size: 24 Fr; Drainage System: Suction 10/12/24 1024 by Tracie Pacheco RN Chest Tube Placement Date: 10/12/24; Placement Time: 1120; Tube Number: 2 10/12/24 1120 by Dinesh Jessica RN Peripheral IV Placement Date: 10/03/24; Placement Time: 1135; Catheter Size: 20 G; Orientation: Anterior, Distal, Right; Location: Forearm; Inserted by: MG; Insertion Attempts: 1; Removal Date: 10/12/24; Removal Time: 1146 10/03/24 1135 by Alyssa Holley RN 10/12/24 1146 by Dinesh Jessica RN Arterial Line Placement Date: 10/12/24; Placement Time: 0737 (created via procedure documentation); Size: 20 G; Orientation: Right; Location: Radial; Securement: Taped; Patient Tolerance: Tolerated well; Removal Date: 10/16/24; Removal Time: 0930; Removal Reason: Per order 10/12/24 0737 by Rudolph German CRNA 10/16/24 0930 by Wanda Hays RN ETT Placement Date: 10/12/24; Placement Time: 0738 (created via procedure documentation); Type: ETT - single; Single Lumen Tube Size: 8 mm; Cuffed: Yes; Location: Oral; Placement Verification: Capnometry; Airway Comments: Pt self-extubated, placed on 6lnc.; Removal Date: 10/12/24; Removal Time: 1319 10/12/24 0738 by Rudolph German CRNA 10/12/24 1319 by Darrny Naik RCP Pulmonary Catheter Triple Placement Date: 10/12/24; Placement Time: 0738 (created via procedure documentation); Size: 8.5 Fr; Orientation: Right; Location: Internal jugular; Removal Date: 10/13/24; Removal Time: 1400 10/12/24 0738 by Rudolph German CRNA 10/13/24 1400 by Rj De La Cruz RN Urethral Catheter Placement Date: 10/12/24; Placement Time: 0753; Inserted by: FA; Type: Temperature probe; Balloon Size: 10 mL; Urine Returned: Yes; Removal Date: 10/14/24; Removal Time: 1048; Removal Reason: Per order 10/12/24 0753 by Tracie Pacheco RN 10/14/24 1048 by Hunter Dove RN documented in this encounter [facility] [id number] Anesthesiology procedure note* Anesthesia Procedure Notes - Rudolph German CRNA - 10/12/2024 8:12 AM ESTAssociated Order(s): Central Venous Line Central Venous Line: Date/Time: 10/12/2024 7:38 AM A central venous line was placed in the Procedural for the following indication(s): Sterility preparation included the following: provider hand hygiene performed prior to central venous catheter insertion, all 5 sterile barriers used (gloves, gown, cap, mask, large sterile drape) during central venous catheter insertion, antiseptic used during central venous catheter insertion andskin prep agent completely dried prior to procedure. The patient was placed in Trendelenburg position. Right The site was prepped with Chlorhexidine. Size: 8.5 Fr Catheter type: introducer with PA Catheter Number of Lumens: triple lumen During the procedure, the following specific steps were taken: target vein identified, needle advanced into vein and blood aspirated and guidewire advanced into vein. Procedure performed using ultrasound guidance - Image permanently retained with wire or catheter invein. Sterile gel and probe cover used in ultrasound-guided central venous catheter insertion. Intravenous verification was obtained by ultrasound. Post insertion care included: all ports aspirated, all ports flushed easily, guidewire removed intact, Biopatch applied, line sutured in place and dressing applied. During the procedure the patient experienced: patient tolerated procedure well with no complications. A non-oximetric, 7.5 FR (size) Pulmonary Artery Catheter (PAC) was placed through the Introducer CVL in the right internal jugular vein. The PAC placement was confirmed by pressure tracing changes and secured at 49 cm (depth). The patient experienced the following events during the procedure: no complications. Staffing Performed: ORDNANCE TECHNICIAN Resident/ORDNANCE TECHNICIAN: Rudolph German CRNA [facility]01-16-2025 Anesthesiology procedure note* Anesthesia Procedure Notes - Rudolph German CRNA - 10/12/2024 7:49 AM ESTAssociated Order(s): Airway Airway Date/Time: 10/12/2024 7:38 AM Urgency: scheduled Airway not difficult General Information and Staff Patient location during procedure: Procedural Anesthesiologist: Vincent Wilson MD Resident/ORDNANCE TECHNICIAN: Rudolph German CRNA Performed: anesthesiologist Indications and Patient Condition Indications for airway management: airway protection and anesthesia Sedation level: Asleep Preoxygenated: yes Patient position: sniffing MILS maintained throughout Mask difficulty assessment: 1 - vent by mask Final Airway Details Final airway type: endotracheal airway Successful airway: ETT Cuffed: yes Successful intubation technique: direct laryngoscopy Endotracheal tube insertion site: oral Blade: Bustamante Blade size: #3 ETT size (mm): 8.0 Cormack-Lehane Classification: grade IIa - partial view of glottis Placement verified by: capnometry Measured from: lips ETT to lips (cm): 21 Number of attempts at approach: 1 [facility] [id number] Anesthesiology procedure note* Anesthesia Procedure Notes - Rudolph German CRNA - 10/12/2024 7:49 AM ESTAssociated Order(s): Arterial Line Arterial Line: Date/Time: 10/12/2024 7:37 AM An arterial line was placed Procedure performed using ultrasound guidance - Image permanently retained with wire or catheter invein.in the Procedural for the following indication(s): continuous blood pressure monitoring and blood sampling needed. A 20 gauge (size), 1 and 3/4 inch (length), Arrow (type) catheter was placed, into the Right radialartery, secured by Tegaderm and tape. Events: patient tolerated procedure well with no complications. Staffing Performed: ORDNANCE TECHNICIAN Resident/ORDNANCE TECHNICIAN: Rudolph German CRNA [facility] [id number] Anesthesiology Preoperative evaluation and management note* Anesthesia Preprocedure Evaluation - Vincent Wilson MD - 10/12/2024 6:56 AM EST Patient: Jair Snyder Procedure Information Date/Time: 10/12/24 0730 Procedures: AORTIC VALVE REPAIR, POSSIBLE REPLACEMENT (Chest) - 7:30 am, 5 hours TRICUSPID REPLACEMENT WITH RING (Chest) TRANSESOPHAGEAL ECHOCARDIOGRAM Location: [facility] Operating Room Surgeons: Luciano Montemayor MD Relevant Problems Cardio (+) Aortic stenosis (+) Atrial flutter, unspecified type (HCC) (+) Calcification of abdominal aorta (HCC) (+) HTN (hypertension) (+) Nonrheumatic aortic valve stenosis (+) Paroxysmal A-fib (CMS/HCC) (HCC) GI (+) Diverticulosis /Renal (+) ESRD on hemodialysis (CMS/HCC) (HCC) (+) 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 Past Medical History: Past Medical History: 10/19/2019: Acute renal failure (ARF) (HCC) 12/30/2021: Anemia 10/08/2023: Calcification of abdominal aorta ([facility]) Comment: 09/[address] abd 10/08/2023: Diverticulosis 10/26/2019: ESRD on hemodialysis ([facility]) ([facility]) No date: Hemodialysis patient ([facility] ([facility]) 12/01/2022: HTN (hypertension) No date: Hypertension No date: IgA nephropathy 10/26/2019: 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 10/08/2023: Missed vaccination due to patient refusal Comment: Has a number of non-scientific based beliefs which interfere with his understanding and acceptance of the medical benefit of vaccination. 10/08/2023: Nonrheumatic aortic valve stenosis 08/18/2023: Paroxysmal A-fib ([facility]) ([facility]) 10/08/2023: Tobacco abuse Past Surgical History: Past Surgical History: No date: APPENDECTOMY 10/09/2024: CARDIAC CATHETERIZATION; N/A Comment: Performed by Bob Watson MD at [facility] Cardiac Cath/EP Lab 09/15/2021: FISTULAGRAM (HISTORICAL); Left Comment: LEFT UPPER ARM No date: HX AV FISTULA CREATION 08/07/2022: IR FISTULAGRAM Comment: IR FISTULAGRAM 08/07/2022 [facility] IR IMAGING No date: TONSILLECTOMY (HISTORICAL) Social History: TOBACCO: reports that he has been smoking cigarettes. He has never used smokeless tobacco. ETOH: reports that he does not currently use alcohol. Social History Substance and Sexual Activity Drug Use Never Family History: Family History Problem Relation Name Age of Onset No Known Problems Mother No Known Problems Father Screening: unknown Clinical information reviewed: Tobacco Allergies Meds Med Hx Surg Hx Fam Hx Soc Hx Physical Exam Airway Mallampati: II TM distance: >3 FB Neck ROM: full Cardiovascular Dental (+) Upper Dentures, Lower Dentures, edentulous Pulmonary Abdominal Anesthesia Plan patient is NPO appropriate Any family history or previous problems with anesthesia no ASA 3 general Any family history or previous problems with anesthesia no The patient is not a current smoker. Patient did not smoke on day of procedure. Anesthetic plan and risks discussed with patient. MITZI Screening Labs: Lab Results Component Value Date WBC 6.6 10/11/2024 HGB 9.5 (L) 10/11/2024 HCT 29.8 (L) 10/11/2024 MCV 98.3 10/11/2024 PLT 195 10/11/2024 Lab Results Component Value Date NA 137 10/11/2024 K 4.1 10/11/2024 CL 96 (L) 10/11/2024 CO2 34 (H) 10/11/2024 BUN 27 (H) 10/11/2024 CREATININE 4.82 (H) 10/11/2024 GLUCOSE 105 (H) 10/11/2024 CALCIUM 10.2 10/11/2024 PROT 6.5 10/11/2024 ALKPHOS 142 10/11/2024 AST 78 (H) 10/11/2024 ALT 46 (H) 10/11/2024 EGFR 13.2 (L) 10/11/2024 Pain Score: 0 - No pain Transthoracic echocardiogram (TTE) complete with contrast, bubble, strain, and 3D PRN Result Date: 10/04/2024 Left Ventricle: Left ventricle size is normal. Mildly increased wall thickness. Mildly reduced leftventricular systolic function. EF by 2D Simpsons Biplane is 40%. Unable to assess wall motion. Diastolic function indeterminate in the setting of atrial fibrillation. Right Ventricle: Right ventricleis moderately dilated. Increased wall thickness. Mildly reduced systolic function. Aortic Valve: Not well visualized. Severely calcified cusps. No regurgitation. Severe stenosis of the aortic valve. AV mean gradient is 42 mmHg. AV peak velocity is 4.1 m/s. AV Velocity Ratio is 0.15. LVOT:AV VTI Index is 0.13. AV area by continuity VTI is 0.5 cm2. Stroke volume index is 17.4 mL/m2. Mitral Valve: MV mean gradient is 6 mmHg. Thickened leaflets. Moderately calcified leaflets. Mild to moderate (1-2+) regurgitation. Mild stenosis noted. MV mean gradient is 6 mmHg. MV PHT is 61.2 ms. MV area by PHT is 3.6 cm2. Tricuspid Valve: Not well visualized. Mildly calcified leaflets. Annular dilation. Severe (4+) regurgitation with a centrally directed jet. Reversed hepatic vein systolic flow. RVSP may beunderestimated in the setting of severe TR. RVSP is 41 mmHg. Left Atrium: Left atrium size is moderately increased (LA volume index 42-48 mL/m2).LA Vol Index A/L is 46 mL/m2. Right Atrium: Right atrium is severely dilated. IVC/SVC: IVC diameter is dilated and decreases less than 50% during inspiration; therefore the estimated right atrial pressure is elevated (~15 mmHg). 10/03/24 ECG 12-LEAD 10/10/2024 10:45 AM (Final) Impression Atrial flutter Electronically Signed On 10-10-2024 10:45:28 EST by Jayjay Garcia Signed by: Jayjay Garcia on 10/10/2024 10:45 AM Equipment Requests: Additional Equipment Requests [facility] [id number] History of Present illness Narrative* Jr Shah MD - 08/28/2024 3:15 PM EST Images from the original note were not included. [facility] - [address] [facility] [id number] Dept: [phone] Dept Visit type: Established : 1965 Reason for Visit: 6 Month Follow-up Assessment and Plan 1. Paroxysmal A-fib (CMS/HCC) (HCC) Assessment & Plan: Paroxysmal. Infrequent episodes that he feels, does not go to the ED but knows he is having it. A few times a year. A fib triggers for him more likely ESRD on HD, age, aortic stenosis, HTN, tobacco abuse. He reports A fib episodes during dialysis at some of his sessions but also at home. Episodes resolve spontaneously and it doesn't sound like there is any evidence of hemodynamic compromise. In fact, he tells me his BP is always very good during dialysis. -Continues on Eliquis 5 mg bid -Continue Toprol XL 50 mg daily -Reviewed that if rhythm is an issue with Sxs or increased frequency we can have him see EP, discuss ablation, watchman device, etc. Orders: - ECG 12 lead 2. Nonrheumatic aortic valve stenosis Assessment & Plan: Non-severe by 2022 echo. Reviewed that he will eventually need replacement; if not replaced with severe and Sxs then substantially increased risk of in subsequent years. Sxs of weakness now due to valve? Discussed that nasal/sinus drainage not due to valve. -Monika echo; last one was a year ago showing moderately-severe . If the same as prior then f/u echo in 1 yr, if progression, then followup echo in another 6 mos. -When develops severe and/or Sxs will refer to [facility] clinic. He has preconceived ideaabout how he would have his valve replaced, which for him is the minimally invasive route. There are risks/benefits to either approach which will need to be carefully considered. Orders: - Transthoracic echocardiogram (TTE) complete with contrast, bubble, strain, and 3D PRN - perflutren protein A microsphere (Optison) 3 mL in sodium chloride (PF) 0.9 % 10 mL IV syringe; 0-10 mL, IntraVENous, IMG once PRN, other, suboptimal echo image, Starting on Wed08/28/24 at 1606, For 1 dose, CV Procedural MedicationsAdminister via slow IVP for suboptimal echocardiogram enhancement. May administer as divided doses to reach optimal image enhancement 3. Tobacco abuse Assessment & Plan: 1 ppd. Recommend complete cessation. -Recommend CT lung cancer screening. 4. Alcohol use disorder in remission Assessment & Plan: Says he is a functioning alcoholic. Stopping drinking in 2019. -Recommend stay quit due to addiction and risk of bleeding. Follow up in about 6 months (around 02/26/2025) for [facility] f/u in [place]. Subjective Afib after admission 07/2023. ESRD on HD 3 days/week. Aortic stenosis. HTN. - all factors that could contribute to a fib. 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 He was going to [facility] to discuss renal transplant but stopped because they were pushing that Covid vaccine shit. Hx of 1ppd smoker. We have reviewed in detail mgt of afib and AV stenosis over time. Not interested in anti-arrhythmic Rx or catheter based ablation. Understands that surgery or TAVR are only options in future for AV disease management. He favors a minimally invasive approach but its not clear if this would be optimal for him given his age. 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 Has not followed up in a year. Today: HD on Wed. He is oliguric. Afib Sxs: Has had 2-3 episodes that he knows of in the last year. Last break thru was a month ago. Some with dialysis but others at rest at home. One occurred for about an hour and he felt anxious, lying in bed. Says he feels he has a cold but not Covid. Started in his sinuses with drainage a month ago. Now feels his throat is sore due to the drainage from thick mucus. And also has a feeling of weakness and SOB. Says he has PCP f/u in Sep. D/w him that he can go to Urgent Care or the ED. Most of his Sxs sound upper respiratory but given length of time and concern for SOB/weakness he could also go to the ED. He says he may go to Urgent Care. Has concerns with how he is being treated at dialysis with the temperature too cold for him to breathe and they asked him to stop his space heater at dialysis. Tob abuse - 1ppd ETOH - none/quit. Pt would like to f/u in [place]. Was concerned about location and level of care. Reassured him that our staff rotate in multiple places and that the level of care is driven by the specialty/sub-speciality that physician is in. Same is true for procedural teams and imaging. Jun Snyder Review of Systems Constitutional: Negative for activity change, chills, diaphoresis, fatigue and fever. HENT: Negative for nosebleeds and trouble swallowing. Eyes: Negative for discharge and visual disturbance. Respiratory: Positive for cough (occasional), shortness of breath and wheezing. Negative for apnea and chest tightness. Cardiovascular: Positive for chest pain, palpitations and leg swelling. Gastrointestinal: Negative for abdominal distention, abdominal pain, blood in stool, diarrhea, nausea and vomiting. Endocrine: Negative for cold intolerance and heat intolerance. Genitourinary: Negative for hematuria. Musculoskeletal: Negative for gait problem and myalgias. Skin: Negative for color change and rash. Neurological: Positive for weakness and light-headedness. Negative for dizziness, seizures, syncope, facial asymmetry, speech difficulty, numbness and headaches. Hematological: Bruises/bleeds easily (Eliquis). Psychiatric/Behavioral: Negative for dysphoric mood. Allergies Allergen Reactions Lisinopril Swelling and Angioedema Outpatient Medications Prior to Visit Medication Sig Dispense Refill apixaban (Eliquis) 5 MG tablet Take 1 tablet (5 mg) by mouth 2 times daily. 60 tablet 1 metoprolol succinate XL (Toprol-XL) 50 MG 24 hr tablet Take 1 tablet (50 mg) by mouth daily. Do notcrush or chew. 30 tablet 2 Velphoro 500 MG chewable tablet CRUSH OR CHEW AND SWALLOW 2 TABLETS 3 TIMES A DAY WITH MEALS No facility-administered medications prior to visit. Past Medical History: Diagnosis Date Acute renal failure (ARF) ([facility]) 10/19/2019 Anemia 12/30/2021 Calcification of abdominal aorta ([facility]) 10/08/202309/[address] abd Diverticulosis 10/08/2023 ESRD on hemodialysis ([facility]) ([facility]) 10/26/2019 Hemodialysis patient ([facility]) ([facility]) HTN (hypertension) 12/01/2022 Hypertension IgA nephropathy 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 10/26/2019 Missed vaccination due to patient refusal 10/08/2023 Has a number of non-scientific based beliefs which interfere with his understanding and acceptance of the medical benefit of vaccination. Nonrheumatic aortic valve stenosis 10/08/2023 Paroxysmal A-fib ([facility]) ([facility]) 08/18/2023 Tobacco abuse 10/08/2023 Social History Tobacco Use Smoking status: Every Day Current packs/day: 1.00 Types: Cigarettes Smokeless tobacco: Never Substance Use Topics Alcohol use: Not Currently Past Surgical History: Procedure Laterality Date APPENDECTOMY FISTULAGRAM (HISTORICAL) Left 09/15/2021 LEFT UPPER ARM HX AV FISTULA CREATION IR FISTULAGRAM 08/07/2022 IR FISTULAGRAM 08/07/2022 [facility] IR IMAGING TONSILLECTOMY (HISTORICAL) Family History Problem Relation Name Age of Onset No Known Problems Mother No Known Problems Father Objective Vitals: 08/28/24 1533 BP: 130/80 BP Location: Right arm Patient Position: Sitting BP Cuff Size: Adult Pulse: 75 Weight: 206 lb (93.4 kg) Height: 5' 10 (1.778 m) Physical Exam Vitals reviewed. Constitutional: General: He is not in acute distress. Appearance: He is well-developed. HENT: Nose: Comments: Frequent drainage Neck: Vascular: No JVD. Cardiovascular: Rate and Rhythm: Normal rate and regular rhythm. Heart sounds: Murmur (high pitched; throughout precordium) heard. Crescendo decrescendo systolic murmur is present with a grade of 4/6. Pulmonary: Effort: Pulmonary effort is normal. Breath sounds: Normal breath sounds. Abdominal: General: Bowel sounds are normal. Palpations: Abdomen is soft. Neurological: Mental Status: He is alert. Psychiatric: Attention and Perception: Attention normal. Behavior: Behavior is cooperative. Data Reviewed and Summarized EF BP Date Value Ref Range Status 08/17/2023 62 55 - 100 % Final Review of tests/labs done/ordered within my specialty: EKG in office: 08/28/24 ECG 12-LEAD 08/28/2024 4:01 PM (Final) Narrative Sinus Rhythm -Incomplete right bundle branch block. -Left atrial enlargement. Voltage criteria for LVH (S(V1)+R(V6) exceeds 3.50 mV). -ST depression -Seen with left ventricular hypertrophy (strain) -consider ischemia. Signed by: Jr Shah on 08/28/2024 4:01 PM Review of tests/labs done/ordered outside my specialty: Independent interpretation of tests: Jr Shah MD I, Jr Shah MD, provided Jun Snyder ongoing care for their single serious or complex condition described above. I assume responsibility for the patient's ongoing medical care for thiscondition(s). documented in this [facility]12-02-2024 Evaluation + Plan note* Assessment & Plan Note - Jr Shah MD - 08/28/2024 1:07 PM EST Associated Problem(s): Alcohol use disorder in remission Says he is a functioning alcoholic. Stopping drinking in 2020. -Recommend stay quit due to addiction and risk of bleeding. [facility] [id number] Evaluation + Plan note* Assessment & Plan Note - Jr Shah MD - 08/28/2024 1:07 PM ESTAssociated Problem(s): Tobacco abuse 1 ppd. Recommend complete cessation. -Recommend CT lung cancer screening. [id number] Miscellaneous Notes* Assessment & Plan Note - Jr Shah MD - 08/28/2024 1:07 PM ESTAssociated Problem(s): Alcohol use disorder in remission Says he is a functioning alcoholic. Stopping drinking in 2020. -Recommend stay quit due to addiction and risk of bleeding. * Assessment & Plan Note - Jr Shah MD - 08/28/2024 1:07 PM EST Associated Problem(s): Tobacco abuse 1 ppd. Recommend complete cessation. -Recommend CT lung cancer screening. * Assessment & Plan Note - Jr Shah MD - 08/28/2024 1:04 PM EST Associated Problem(s): Nonrheumatic aortic valve stenosis Non-severe by 2022 echo. Reviewed that he will eventually need replacement; if not replaced with severe and Sxs then substantially increased risk of in subsequent years. Sxs of weakness now due to valve? Discussed that nasal/sinus drainage not due to valve. -Monika echo; last one was a year ago showing moderately-severe . If the same as prior then f/u echo in 1 yr, if progression, then followup echo in another 6 mos. -When develops severe and/or Sxs will refer to [facility] clinic. He has preconceived ideaabout how he would have his valve replaced, which for him is the minimally invasive route. There are risks/benefits to either approach which will need to be carefully considered. * Assessment & Plan Note - Jr Shah MD - 08/28/2024 1:01 PM EST Associated Problem(s): Paroxysmal A-fib (CMS/HCC) (HCC) Paroxysmal. Infrequent episodes that he feels, does not go to the ED but knows he is having it. A few times a year. A fib triggers for him more likely ESRD on HD, age, aortic stenosis, HTN, tobacco abuse. He reports A fib episodes during dialysis at some of his sessions but also at home. Episodes resolve spontaneously and it doesn't sound like there is any evidence of hemodynamic compromise. In fact, he tells me his BP is always very good during dialysis. -Continues on Eliquis 5 mg bid -Continue Toprol XL 50 mg daily -Reviewed that if rhythm is an issue with Sxs or increased frequency we can have him see EP, discuss ablation, watchman device, etc. documented in this [facility]12-02-2024 Evaluation + Plan note* Assessment & Plan Note - Jr Shah MD - 08/28/2024 1:04 PM EST Associated Problem(s): Nonrheumatic aortic valve stenosis Non-severe by 2022 echo. Reviewed that he will eventually need replacement; if not replaced with severe and Sxs then substantially increased risk of in subsequent years. Sxs of weakness now due to valve? Discussed that nasal/sinus drainage not due to valve. -Monika echo; last one was a year ago showing moderately-severe . If the same as prior then f/u echo in 1 yr, if progression, then followup echo in another 6 mos. -When develops severe and/or Sxs will refer to [facility]. He has preconceived ideaabout how he would have his valve replaced, which for him is the minimally invasive route. There are risks/benefits to either approach which will need to be carefully considered. [id number] Evaluation + Plan note* Assessment & Plan Note - Jr Shah MD - 08/28/2024 1:01 PM ESTAssociated Problem(s): Paroxysmal A-fib (CMS/HCC) ([facility]) Paroxysmal. Infrequent episodes that he feels, does not go to the ED but knows he is having it. A few times a year. A fib triggers for him more likely ESRD on HD, age, aortic stenosis, HTN, tobacco abuse. He reports A fib episodes during dialysis at some of his sessions but also at home. Episodes resolve spontaneously and it doesn't sound like there is any evidence of hemodynamic compromise. In fact, he tells me his BP is always very good during dialysis. -Continues on Eliquis 5 mg bid -Continue Toprol XL 50 mg daily -Reviewed that if rhythm is an issue with Sxs or increased frequency we can have him see EP, discuss ablation, watchman device, etc. [employer] [id number] History of Present illness Narrative* Alan Barroso RN - 05/10/2024 2:38 PM EDT Dialysis center status inquiry form received from [facility]. Form completed and faxed back to ELIA Marin at [phone]. Patient was called 04/12/2024 but voicemail was full, letter was sent to please call the office at [phone] to complete intake. Referral was closed. Please have patient call the office to complete intake. JHONY Meier RN May 10, 2024 2:41 PM [facility] Telephone encounter Note * Telephone Encounter - Lanie Luis - 04/12/2024 11:49 AM EDT I called patient to start the kidney referral intake process. Voicemail is full, sent a letter out. [facility]07-17-2024 Miscellaneous Notes* Telephone Encounter - Lanie Luis - 04/12/2024 11:49 AM EDT I called patient to start the kidney referral intake process. Voicemail is full, sent a letter out. Lanie [facility] Telephone encounter Note * Telephone Encounter - Tracie Chin RN - 02/14/2024 10:23 AM EDT Called LM with pt with central scheduling number. Advised to call to schedule echo. [facility] [id number] Miscellaneous Notes* Telephone Encounter - Tracie Chin RN - 02/14/2024 10:23 AM EDT Called LM with pt with central scheduling number. Advised to call to schedule echo. * Telephone Encounter - Dorcas Pabon - 02/12/2024 10:28 AM EDT Unable to contact patient - called and lvm and sent mychart message for echo Deferred documented in this [facility]05-18-2024 Telephone encounter Note* Telephone Encounter - Dorcas Pabon - 02/12/2024 10:28 AM EDT Unable to contact patient - called and lvm and sent mychart message for echo Deferred [facility] [id number] Miscellaneous Notes* Telephone Encounter - Dorcas Pabon - 02/12/2024 10:28 AM EDT Unable to contact patient - called and lvm and sent mychart message for echo Deferred documented in this [facility]05-18-2024 Telephone encounter Note* Telephone Encounter - Dorcas Pabon - 02/12/2024 10:23 AM EDT Unable to contact patient to schedule CT lung screening - called and sent mychart message Deferred [facility] [id number] Miscellaneous Notes* Telephone Encounter - Dorcas Pabon - 02/12/2024 10:23 AM EDT Unable to contact patient to schedule CT lung screening - called and sent mychart message Deferred documented in this [facility]02-16-2024 Evaluation + Plan note* Assessment & Plan Note - Quiana Contreras APRN - SAMIA - 11/12/2023 4:50 PM EST Associated Problem(s): Tobacco abuse 1 ppd. Recommend complete cessation. Consider CT lung cancer screening. [facility] [id number] Miscellaneous Notes* Assessment & Plan Note - DENIA Dumont CNP - 11/12/2023 4:50 PM ESTAssociated Problem(s): Tobacco abuse 1 ppd. Recommend complete cessation. Consider CT lung cancer screening. * Assessment & Plan Note - DENIA Dumont CNP - 11/12/2023 4:48 PM EST Associated Problem(s): Calcification of abdominal aorta (HCC) Sep 2023, by chart review this is the only ASCVD finding. Utility of lipid- lowering agent controversial in ESRD and does not appear to be improved with moderate intensity statins. -expectant mgt * Assessment & Plan Note - DENIA Dumont CNP - 11/12/2023 4:48 PM EST Associated Problem(s): HTN (hypertension) Goal BP < 130/80 mmHg. BP today in office borderline. -continues on toprol XL -mgt per PCP and renal * Assessment & Plan Note - DENIA Dumont CNP - 11/12/2023 4:47 PM EST Associated Problem(s): Nonrheumatic aortic valve stenosis Mod-Sev. No Sxs. Reviewed that he will eventually need replacement; if not replaced with severe and Sxs then substantially increased risk of in subsequent years. -Monika echo in 6 mos; if the same as prior then f/u echo in 1 yr, if progression, then followup echoin another 6 mos. -When develops severe and/or Sxs will refer to [facility]. He has preconceived ideaabout how he would have his valve replaced. This is one area of invasive cardiac intervention that he is open to. * Assessment & Plan Note - DENIA Dumont CNP - 11/12/2023 4:42 PM EST Associated Problem(s): Paroxysmal A-fib (CMS/HCC) (HCC) Paroxysmal. Refer to Dr. Shah's notes re: triggers. Pt thinks the etiology of a fib is from a pinched nerve between T1-4. A fib triggers for him more likely ESRD on HD, age, aortic stenosis, and HTN. -continues on eliquis 5 mg bid -continues on toprol XL He reports A fib episodes during dialysis at some of his sessions. Episodes resolve spontaneously and it doesn't sound like there is any evidence of hemodynamic compromise. In fact, he tells me his BP is always very good during dialysis. Options I gave him include: -monitor Sxs and leave Rx as-is -increase toprol XL to 50 mg daily for improved HR control -again reviewed that we can have him see EP, discuss ablation, watchman device, etc. He would like to increase toprol XL, and given HR 85-90 he is agreeable to just increase the dose overall, rather than just dialysis days. documented in this [facility]02-16-2024 Evaluation + Plan note* Assessment & Plan Note - DENIA Dumont CNP - 11/12/2023 4:48 PM EST Associated Problem(s): Calcification of abdominal aorta (HCC) Sep 2023, by chart review this is the only ASCVD finding. Utility of lipid- lowering agent controversial in ESRD and does not appear to be improved with moderate intensity statins. -expectant mgt [facility] [id number] Evaluation + Plan note* Assessment & Plan Note - DENIA Dumont CNP - 11/12/2023 4:48 PM ESTAssociated Problem(s): HTN (hypertension) Goal BP < 130/80 mmHg. BP today in office borderline. -continues on toprol XL -mgt per PCP and renal [facility]02-16-2024 Evaluation + Plan note* Assessment & Plan Note - DENIA Dumont CNP - 11/12/2023 4:47 PM ESTAssociated Problem(s): Nonrheumatic aortic valve stenosis Mod-Sev. No Sxs. Reviewed that he will eventually need replacement; if not replaced with severe and Sxs then substantially increased risk of in subsequent years. -Monika echo in 6 mos; if the same as prior then f/u echo in 1 yr, if progression, then followup echoin another 6 mos. -When develops severe and/or Sxs will refer to [facility]. He has preconceived ideaabout how he would have his valve replaced. This is one area of invasive cardiac intervention that he is open to. [facility]02-16-2024 Evaluation + Plan note* Assessment & Plan Note - DENIA Dumont CNP - 11/12/2023 4:42 PM ESTAssociated Problem(s): Paroxysmal A-fib (CMS/HCC) (HCC) Paroxysmal. Refer to Dr. Shah's notes re: triggers. Pt thinks the etiology of a fib is from a pinched nerve between T1-4. A fib triggers for him more likely ESRD on HD, age, aortic stenosis, and HTN. -continues on eliquis 5 mg bid -continues on toprol XL He reports A fib episodes during dialysis at some of his sessions. Episodes resolve spontaneously and it doesn't sound like there is any evidence of hemodynamic compromise. In fact, he tells me his BP is always very good during dialysis. Options I gave him include: -monitor Sxs and leave Rx as-is -increase toprol XL to 50 mg daily for improved HR control -again reviewed that we can have him see EP, discuss ablation, watchman device, etc. He would like to increase toprol XL, and given HR 85-90 he is agreeable to just increase the dose overall, rather than just dialysis days. [facility] [id number] History of Present illness Narrative* DENIA Dumont CNP - 11/12/2023 1:30 PM EST Images from the original note were not included. [facility] [address] [place] [address] [address] [facility] [address] Dept: [phone] Dept Loc: [phone] Visit type: Established : 1965 Reason for Visit: Atrial Fibrillation Assessment and Plan 1. Nonrheumatic aortic valve stenosis Assessment & Plan: Mod-Sev. No Sxs. Reviewed that he will eventually need replacement; if not replaced with severe and Sxs then substantially increased risk of in subsequent years. -Monika echo in 6 mos; if the same as prior then f/u echo in 1 yr, if progression, then followup echoin another 6 mos. -When develops severe and/or Sxs will refer to [facility]. He has preconceived ideaabout how he would have his valve replaced. This is one area of invasive cardiac intervention that he is open to. 2. Paroxysmal A-fib ([facility]) ([facility]) Assessment & Plan: Paroxysmal. Refer to Dr. Shah's notes re: triggers. Pt thinks the etiology of a fib is from a pinched nerve between T1-4. A fib triggers for him more likely ESRD on HD, age, aortic stenosis, and HTN. -continues on eliquis 5 mg bid -continues on toprol XL He reports A fib episodes during dialysis at some of his sessions. Episodes resolve spontaneously and it doesn't sound like there is any evidence of hemodynamic compromise. In fact, he tells me his BP is always very good during dialysis. Options I gave him include: -monitor Sxs and leave Rx as-is -increase toprol XL to 50 mg daily for improved HR control -again reviewed that we can have him see EP, discuss ablation, watchman device, etc. He would like to increase toprol XL, and given HR 85-90 he is agreeable to just increase the dose overall, rather than just dialysis days. Orders: - ECG 12 lead 3. Primary hypertension Assessment & Plan: Goal BP < 130/80 mmHg. BP today in office borderline. -continues on toprol XL -mgt per PCP and renal 4. Calcification of abdominal aorta (HCC) Assessment & Plan: Sep 2023, by chart review this is the only ASCVD finding. Utility of lipid- lowering agent controversial in ESRD and does not appear to be improved with moderate intensity statins. -expectant mgt 5. Tobacco abuse Assessment & Plan: 1 ppd. Recommend complete cessation. Consider CT lung cancer screening. 6. ESRD on hemodialysis (CMS/HCC) (HCC) Follow up in about 6 months (around 05/12/2024). Subjective Afib after admission 07/2023. ESRD on HD 3 days/week. Aortic stenosis. HTN. - all factors that could contribute to a fib. 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 He was going to [facility] to discuss renal transplant but stopped because they were pushing that Covid vaccine shit. Hx of 1ppd smoker. Drinks ETOH, amount unclear. We reviewed in detail mgt of afib and AV stenosis over time. Not interested in anti-arrhythmic Rx or catheter based ablation. Understands that surgery or TAVR are only options in future for AV dz management. He favors a minimally invasive approach but its not clear if this would be optimal for him given his age. On the other hand, a mechanical valve with mcc OAC carries its own risks. Today: He comes in to discuss episodes of a fib during HD. HD on T TH Sat. He is Oliguric. When he goes into a fib he feels a little skipped beat, tension, and anxiety. Mild SOB. EKG SR 80s with LVH. Review of Systems Constitutional: Negative for activity change, chills, diaphoresis, fatigue and fever. HENT: Negative for nosebleeds and trouble swallowing. Eyes: Negative for discharge and visual disturbance. Respiratory: Positive for cough and shortness of breath. Negative for apnea, chest tightness and wheezing. Cardiovascular: Positive for palpitations. Negative for chest pain and leg swelling. Gastrointestinal: Negative for abdominal distention, abdominal pain, blood in stool, diarrhea, nausea and vomiting. Endocrine: Negative for cold intolerance and heat intolerance. Genitourinary: Negative for hematuria. Oliguric Musculoskeletal: Negative for gait problem and myalgias. Skin: Negative for color change and rash. Neurological: Negative for dizziness, seizures, syncope, facial asymmetry, speech difficulty, weakness, light-headedness, numbness and headaches. Hematological: Bruises/bleeds easily. Psychiatric/Behavioral: Negative for dysphoric mood. The patient is nervous/anxious. Allergies Allergen Reactions Lisinopril Swelling and Angioedema Outpatient Medications Prior to Visit Medication Sig Dispense Refill apixaban (Eliquis) 5 MG tablet Take 1 tablet (5 mg) by mouth 2 times daily. 60 tablet 1 Velphoro 500 MG chewable tablet CRUSH OR CHEW AND SWALLOW 2 TABLETS 3 TIMES A DAY WITH MEALS metoprolol succinate XL (Toprol-XL) 25 MG 24 hr tablet Take 1 tablet (25 mg) by mouth daily. Do notcrush or chew. 30 tablet 1 No facility-administered medications prior to visit. Past Medical History: Diagnosis Date Acute renal failure (ARF) ([facility]) 10/19/2019 Anemia 12/30/2021 Calcification of abdominal aorta ([facility]) 10/08/202309/[address] abd Diverticulosis 10/08/2023 ESRD on hemodialysis ([facility]) ([facility]) 10/26/2019 Hemodialysis patient ([facility]) ([facility]) HTN (hypertension) 12/01/2022 Hypertension IgA nephropathy 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 10/26/2019 Missed vaccination due to patient refusal 10/08/2023 Has a number of non-scientific based beliefs which interfere with his understanding and acceptance of the medical benefit of vaccination. Nonrheumatic aortic valve stenosis 10/08/2023 Paroxysmal A-fib ([facility]) ([facility]) 08/18/2023 Tobacco abuse 10/08/2023 Social History Tobacco Use Smoking status: Every Day Packs/day: 1 Types: Cigarettes Smokeless tobacco: Never Substance Use Topics Alcohol use: Not Currently Past Surgical History: Procedure Laterality Date APPENDECTOMY FISTULAGRAM (HISTORICAL) Left 09/15/2021 LEFT UPPER ARM HX AV FISTULA CREATION IR FISTULAGRAM 08/07/2022 IR FISTULAGRAM 08/07/2022 SBH IR IMAGING TONSILLECTOMY (HISTORICAL) Family History Problem Relation Name Age of Onset No Known Problems Mother No Known Problems Father Objective Vitals: 11/12/23 1341 11/12/23 1416 BP: (!) 138/94 138/84 BP Location: Right arm Right arm Patient Position: Sitting Sitting BP Cuff Size: Adult Adult Pulse: 85 Weight: 208 lb (94.3 kg) Height: 5' 10 (1.778 m) Physical Exam Constitutional: Appearance: Normal appearance. HENT: Head: Normocephalic. Eyes: General: No scleral icterus. Right eye: No discharge. Left eye: No discharge. Cardiovascular: Rate and Rhythm: Normal rate and regular rhythm. Pulses: Normal pulses. Heart sounds: Normal heart sounds. No murmur heard. Pulmonary: Effort: Pulmonary effort is normal. Breath sounds: Normal breath sounds. Abdominal: General: Abdomen is flat. Palpations: Abdomen is soft. Genitourinary: Comments: Left fistula + thrill + bruit Musculoskeletal: General: Normal range of motion. Cervical back: Normal range of motion. Skin: General: Skin is warm and dry. Capillary Refill: Capillary refill takes less than 2 seconds. Neurological: Mental Status: He is alert and oriented to person, place, and time. Psychiatric: Mood and Affect: Mood normal. Data Reviewed and Summarized Labs: Lab Results Component Value Date GLUCOSE 102 (H) 08/17/2023 CALCIUM 8.7 08/17/2023 NA 134 (L) 08/17/2023 K 5.0 08/17/2023 CO2 26 08/17/2023 CL 94 (L) 08/17/2023 BUN 46 (H) 08/17/2023 CREATININE 6.78 (H) 08/17/2023 Lab Results Component Value Date AST 41 10/19/2019 ALKPHOS 58 10/19/2019 BILITOT 0.5 10/19/2019 Lab Results Component Value Date WBC 9.5 08/16/2023 HGB 14.5 08/16/2023 HCT 41.6 08/16/2023 MCV 90.5 08/16/2023 PLT 254 08/16/2023 Lab Results Component Value Date TSH 1.190 08/17/2023 No results found for: CHOL No results found for: HDL No results found for: LDLCALC No results found for: TRIG No results found for: CHOLHDL No results found for: HGBA1C Wt Readings from Last 3 Encounters: 11/12/23 208 lb (94.3 kg) 10/08/23 207 lb (93.9 kg) 08/17/23 200 lb (90.7 kg) Cardiac Tests / Imagin08/16/23 TRANSTHORACIC ECHOCARDIOGRAM (TTE) COMPLETE (CONTRAST/BUBBLE/3D PRN) 08/17/2023 2:21 PM (Final) Interpretation Summary Aortic Valve: Trileaflet. Moderately thickened cusps. Moderately calcified cusps. Moderate stenosisof the aortic valve. AV mean gradient is 34 mmHg. AV peak velocity is 3.8 m/s. LVOT:AV VTI Index is0.28. AV area by continuity VTI is 1.1 cm2. Left Ventricle: Left ventricle size is normal. Mildly increased wall thickness. Normal left ventricular systolic function. EF by 2D Simpsons Biplane is 62%. Normal wall motion. Normal diastolic function. Right Ventricle: Right ventricle size is normal. Normal systolic function. Mitral Valve: MV mean gradient is 3 mmHg. Mildly thickened leaflets. Mildly calcified leaflets. Annular calcification. Trace stenosis noted. MV mean gradient is 3 mmHg. MV area by PHT is 1.9 cm2. Tricuspid Valve: Normal RVSP. Est RA pressure is 0 mmHg. RVSP is 30 mmHg. Left Atrium: Left atrium is mildly dilated. Right Atrium: Right atrium is moderately dilated. IVC/SVC: IVC appears small and collapsed, suggesting hypovolemia. Signed by: Jr Shah MD on 08/17/2023 2:21 PM DENIA Dumont CNP documented in this [facility]02-05-2024 Telephone encounter Note* Telephone Encounter - Sydni Rodrigues - 11/01/2023 9:41 AM EST Called pt [facility] for a return call to set up appt [facility] [id number] Miscellaneous Notes* Telephone Encounter - Sydni Rodrigues - 11/01/2023 9:41 AM EST Called pt [facility] for a return call to set up appt * Telephone Encounter - Sydni Rodrigues - 10/18/2023 2:34 PM EST Called pt [facility] for a return call to set up appt * Telephone Encounter - Sydni Rodrigues - 10/14/2023 8:56 AM EST Called pt [facility] for a return call to r/s appt * Telephone Encounter - Regino Ortiz - 10/14/2023 7:58 AM EST Preferred contact number: [phone] Reason for Visit: Jun called in to cancel his appt this morning. He woke up and is very sick. Please contact him to reschedule. Urgency of Appointment: office visit documented in this [facility]01-22-2024 Telephone encounter Note* Telephone Encounter - Sydni Rodrigues - 10/18/2023 2:34 PM EST Called pt [facility] for a return call to set up appt [facility] [id number] Telephone encounter Note* Telephone Encounter - Sydni Rodrigues - 10/14/2023 8:56 AM EST Called pt [facility] for a return call to r/s appt Summa [id number] Telephone encounter Note* Telephone Encounter - Regino English Diana - 10/14/2023 7:58 AM EST Preferred contact number: [phone] Reason for Visit: Jun called in to cancel his appt this morning. He woke up and is very sick. Please contact him to reschedule. Urgency of Appointment: office visit [facility]11-27-2023 Telephone encounter Note* Telephone Encounter - Darya Payne - 08/23/2023 1:47 PM EST 2nd attempt to schedule, no answer, left message. [facility] [id number] Miscellaneous Notes* Telephone Encounter - Darya Payne - 08/23/2023 1:47 PM EST 2nd attempt to schedule, no answer, left message. * Telephone Encounter - Darya Payne - 08/18/2023 2:13 PM EST Left message requesting a call back from the patient to schedule appointment. * Telephone Encounter - Darya Payne - 08/18/2023 2:12 PM EST ----- Message from DENIA Dumont CNP sent at 08/18/2023 8:30 AM EST ----- Patient discharged from [facility]. Please assist with s/p hosp TAYO, [place] within the next ~week. Thanks! documented in this [facility]11-22-2023 Telephone encounter Note* Telephone Encounter - Darya Payne - 08/18/2023 2:13 PM EST Left message requesting a call back from the patient to schedule appointment. [facility] [id number] Telephone encounter Note* Telephone Encounter - Darya Payne - 08/18/2023 2:12 PM EST ----- Message from DENIA Dumont CNP sent at 08/18/2023 8:30 AM EST ----- Patient discharged from [facility]. Please assist with s/p hosp [place], [place] within the next ~week. Thanks! [place] [id number] Emergency department Note* Mary Ann Meraz RN - 08/17/2023 3:11 PM EST Patient education given in regard to medications, as well as following-up with PCP. Patient given eliquis information packet, understanding well. Mary Ann Meraz RN 08/17/23 151 [id number] Emergency department Note* Mary Ann Meraz RN - 08/17/2023 3:11 PM EST Patient education given in regard to medications, as well as following-up with PCP. Patient given eliquis information packet, understanding well. Mary Ann Meraz RN 08/17/23 151 * Dangelo Horne DO - 08/16/2023 6:16 PM EST Emergency Department Encounter [facility] ED Patient: Jun Snyder : 1965 Date of Evaluation: 08/16/2023 ED Supervising Physician: Dangelo Horne DO I independently examined and evaluated Jun Snyder. This will serve as my Supervisory note and shared attestation. I did perform a substantive portion of the visit including all aspects of the Medical Decision Making. I wore appropriate PPE for the entirety of this encounter. In brief, Jun Snyder is a 57 y.o. male with past medical history of end- stage renal disease on hemodialysis that presents to the emergency department for palpitations. His hemodialysis was cut short because they were concerned about atrial fibrillation. Patient reports palpitations that beganearlier today. Denies prior history of atrial fibrillation or arrhythmias. Patient denying chest pain, dyspnea, lightheadedness at this time. Focused exam: Gen: NAD Heart: Irregular rhythm, tachycardic no murmur Lungs: CTA Brief ED course/MDM: Upon arrival to the ED, patient tachycardic, irregular, but otherwise saturating well on room air. EKG new-onset atrial fibrillation without RVR. Does not need to be rate controlled at this time as ranged between 80s to 110s heart rate. Hemodynamically stable. Plan for admission to medicine further management. Total critical care time today provided was at least 35 minutes. This excludes seperately billable procedure. Critical care time provided that required close evaluation and/or intervention with concern for patient decompensation. All diagnostic, treatment, and disposition decisions were made by myself in conjunction with the ARMIN. For all further details of the patient's emergency department visit, please see their documentation. (Comment: Please note this report has been produced using speech recognition software and may contain errors related to that system including errors in grammar, punctuation, and spelling, as well as words and phrases that may be inappropriate. If there are any questions or concerns please feel freeto contact the dictating provider for clarification.) Dangelo Horne DO [employer] Dangelo Horne DO 08/16/231922 Dangelo Horne DO 08/16/231957 * Sha Granados PA-C - 08/16/2023 6:16 PM EST Emergency Department Encounter [facility] ED Patient: Jun Snyder : 1965 Date of Evaluation: 08/16/2023 ED [facility] Provider: Sha Granados PA-C EDcare was supervised by Dr. Horne who independently examined and evaluated the patient. Please see their attestation note for further details. Chief Complaint Chief Complaint Patient presents with Palpitations Pt presents to ED with concern for possible Afib. States that he was seen at dialysis when the provider felt his heart rate and felt like it was abnormal with a HR of 140bpm. Denies any h/o Afib. Reports some recent hyperkalemia and high Phosphorus levels. LIANNA Santos was wearing a N95, Surgical mask for the entirety of this encounter. Jun Snyder is a 57 y.o. male who presents to the emergency department for evaluation of palpitations, fatigue. History of end-stage renal disease on hemodialysis Wednesday was at hemodialysis today when they noticed that his heart rate was high, noticed that he was in A-fib, he cut his session about 45 minutes short because of this, sent him here to the emergency department.Patient has no prior history of A-fib or arrhythmias. Patient states that he had palpitations that began earlier today. He is not having any chest pain shortness of breath or lightheadedness at this time.. Does not describe the pain as ripping or tearing sensation. Denies any history of DVT/PE, recent travel/surgery or unilateral leg swelling. Limitations to history: None Outside historians: None Past History Past Medical History: Diagnosis Date Hemodialysis patient (CMS/HCC) (HCC) Hypertension Past Surgical History: Procedure Laterality Date APPENDECTOMY FISTULAGRAM (HISTORICAL) Left 09/15/2021 LEFT UPPER ARM HX AV FISTULA CREATION IR FISTULAGRAM 08/07/2022 IR FISTULAGRAM 08/07/2022 [facility] IR IMAGING TONSILLECTOMY (HISTORICAL) Social History Socioeconomic History Marital status: Single Tobacco Use Smoking status: Every Day Packs/day: 1 Types: Cigarettes Smokeless tobacco: Never Substance and Sexual Activity Alcohol use: Yes Drug use: Never Medications/Allergies Previous Medications AMLODIPINE-ATORVASTATIN (CADUET) 10-20 MG TABLET Take 1 tablet by mouth in the morning. EMOLLIENT (BIAFINE) CREAM Apply topically 2 times daily. PHOSPHORUS (K PHOS NEUTRAL) TABLET Take 1 tablet by mouth in the morning and 1 tablet before bedtime. PRAMOXINE-ZINC ACETATE (CALADRYL) 1-0.1 % LOTION Apply topically 2 times daily as needed for itching or irritation. Allergies Allergen Reactions Lisinopril Swelling Physical Exam BP 101/63 (BP Location: Right arm, Patient Position: Lying) Comment: Simultaneous filing. User may not have seen previous data. Pulse 107 Comment: Simultaneous filing. User may not have seen previous data. Temp 36.2 C (97.1 F) (Temporal) Resp 16 Comment: Simultaneous filing. User may not haveseen previous data. SpO2 99% Comment: Simultaneous filing. User may not have seen previous data. Physical Exam GENERAL APPEARANCE: Awake and alert. Cooperative. HEENT: Normocephalic. Atraumatic. Sclera anicteric. Tolerates saliva. No trismus. NECK: Supple. Trachea midline. CARDIO: Irregular rhythm, not tachycardic during my evaluation. Distal pulses present and equal in all 4 extremities. LUNGS: Respirations unlabored. CTAB. ABDOMEN: Soft. Non-distended. Non-tender throughout. MUSCULOSKELETAL: No acute deformities. SKIN: Warm and dry. NEUROLOGICAL: No gross facial drooping. No obvious neurologic deficits. Electronic Console Display Operator strength symmetrical. Moves all 4 extremities spontaneously. SCREENINGS D Labs: Results for orders placed or performed during the hospital encounter of 08/16/23 Basic metabolic panel Result Value Ref Range SODIUM 133 (L) 135 - 145 mmol/L POTASSIUM 4.5 3.5 - 5.1 mmol/L CHLORIDE 93 (L) 98 - 107 mmol/L CARBON DIOXIDE 25 22 - 30 mmol/L UREA NITROGEN 40 (H) 9 - 20 mg/dL CREATININE 6.01 (H) 0.66 - 1.25 mg/dL GLUCOSE 110 (H) 70 - 100 mg/dL CALCIUM 9.1 8.4 - 10.4 mg/dL ANION GAP 15 (H) 3 - 13 mmol/L eGFR 10.2 (L) >60.0 mL/min/1.73m*2 CBC auto differential Result Value Ref Range Auto WBC 9.5 3.6 - 10.7 10*3/uL RBC 4.60 4.40 - 5.90 10*6/uL Hemoglobin 14.5 13.0 - 18.0 g/dL Hematocrit 41.6 40.0 - 52.0 % MCV 90.5 80.0 - 98.0 fL MCH 31.5 26.0 - 34.0 pg MCHC 34.8 32.0 - 36.0 % RDW 14.7 (H) 11.5 - 14.5 % Platelets 254 140 - 440 10*3/uL MPV 7.3 (L) 7.4 - 12.4 fL nRBC 0.1 0.0 - 2.0 /100 WBCs Neutrophils Relative 65.9 40.0 - 80.0 % Lymphocytes Relative 14.2 (L) 20.0 - 40.0 % Monocytes Relative 13.5 (H) 2.0 - 10.0 % Eosinophils Relative 5.1 1.0 - 6.0 % Basophils Relative 1.3 0.0 - 2.0 % Neutrophils Absolute 6.2 1.8 - 7.0 10*3/uL Lymphocytes Absolute 1.3 1.0 - 4.3 10*3/uL Monocytes Absolute 1.3 (H) 0.0 - 0.8 10*3/uL Eosinophils Absolute 0.5 0.0 - 0.5 10*3/uL Basophils Absolute 0.1 0.0 - 0.2 10*3/uL Troponin, with Serial Reflex Result Value Ref Range TROPONIN I 0.037 (H) <0.034 ng/mL ECG 12 lead Result Value Ref Range Heart Rate 109 bpm QRSD Interval 114 ms QT Interval 364 ms QTC Interval 491 ms P [place] degrees QRS [place] 61 degrees T Wave [place] -20 degrees SC Interval ms Radiographs: XR chest 1 view Final Result 1. Cardiomegaly. 2. No other acute findings. Report Dictated on Electronically Signed By: Justo Milan MD Electronically Signed Date/Time: 08/16/2023 6:42 PM EST : EKG: All EKG's areinterpreted by the Emergency Department Physician in the absence of a dimension mill worker. see their note for interpretation of EKG. EMERGENCY DEPARTMENT COURSE and DIFFERENTIAL DIAGNOSIS/MDM: External Records Review: . Social Determinants of Health: . Jun Snyder is a 57 y.o. male who presented to the emergency department for evaluation of A-fib outpatient facility. Patient presented he was slightly tachycardic, irregular rhythm, saturating well on room air, does not need rate controlled at this time heart rate has been ranging between 80 and 110. Differentials include ACS, A-fib, A-fib with RVR, electrolyte abnormality. Work- up showed noleukocytosis, no anemia, slight hyponatremia 133, chronic renal insufficiency, troponin 0.037. Chest x-ray shows cardiomegaly, no other acute process. At this time do feel that patient requires admission for new onset A-fib. Patient except[facility] to [facility]. Final Diagnosis: 1. New onset a-fib (CMS/HCC) (HCC) Medications - No data to display Diagnoses as of 08/16/232129 New onset a-fib (CMS/HCC) (HCC) CRITICAL CARE TIME CONSULTS: None PROCEDURES: Unless otherwise noted below, none Procedures DISPOSITION/PLAN Admit 08/16/2023 08:09:48 PM PATIENT REFERRED TO: No follow-up provider specified. DISCHARGE MEDICATIONS: New Prescriptions No medications on file @[facility]([id number]:LAST:1)@ (Please note: Portions of this note were completed with a voice recognition program. Efforts were made to edit the dictations but occasionally words and phrases are mis-transcribed.) Form [id number] Sha Granados PA-C [facility] Sha Granados PA-C 08/16/232129 documented in this [facility]11-21-2023 Hospital Discharge instructions* Discharge Instr - Other Orders* DENIA Lorenzo CNP - 08/17/2023 3:02 PM EST Please discontinue Labetalol and Caduet; see discharge medication list Next dialysis session is 08/18/23 as previously instructed * Attachments The following attachments cannot be sent through Care Everywhere. * Atrial Fibrillation (Latvian) * Going Home on Blood Thinners (Latvian) * Apixaban, ADULT (Latvian) documented in this [facility]11-21-2023 History of Present illness Narrative* DENIA Lorenzo CNP - 08/17/2023 11:00 AM EST Images from the original note were not included. Hospitalist Progress Note 08/17/2023 Subjective: Admit Date: 08/16/2023 PCP: DARYN LOOMIS MD Room#: 06/05 Follow-up Afib Interval History: Converted to SR last night Reports feeling much better today - states that he is going home today His HD session yesterday was cut short a little bit; scheduled for HD again tomorrow (schedule adjusted d/t the holiday) Denies SOB, chest pain No N/V/D Denies fevers/chills Adult diet Regular 24HR INTAKE/OUTPUT: No intake or output data in the 24 hours ending 08/17/23 1243 Past Medical History: Past Medical History: Diagnosis Date Hemodialysis patient (CMS/HCC) (HCC) Hypertension IgA nephropathy LABS: CBC: Recent Labs 08/16/231842 WBC 9.5 RBC 4.60 HGB 14.5 HCT 41.6 MCV 90.5 RDW 14.7* PLT 254 BMP: Recent Labs 08/16/23 1843 08/17/23 0058 NA 133* 134* K 4.5 5.0 CL 93* 94* CO2 25 26 BUN 40* 46* CREATININE 6.01* 6.78* GLUCOSE 110* 102* CALCIUM 9.1 8.7 ANIONGAP 15* 15* LIVER PROFILE:No results for input(s): AST, ALT, BILITOT, ALKPHOS, PROT in the last 72 hours. No lab exists for component: LABALBU PT/INR: No results for input(s): PROTIME, INR in the last 72 hours. CARDIAC ENZYMES: Recent Labs 08/16/23 1843 08/16/23 2200 08/17/23 0058 TROPONINI 0.037* 0.062* 0.094* Procalcitonin: No results found for: PROCAL COVID-19 PCR: No results for input(s): COVID19 in the last 72 hours. Objective: Vitals: BP 108/55 (BP Location: Right leg) Pulse 80 Temp 37.2 C (99 F) (Temporal) Resp 16 Ht 5' 10 (1.778 m) Wt 200 lb (90.7 kg) SpO2 97% BMI 28.70 kg/m Pulse Ox: SpO2 Av.8 % Min: 91 % Max: 99 % Supplemental O2: General appearance: No apparent distress, resting comfortably HEENT: Normal cephalic, atraumatic without obvious deformity. Neck: Supple, with full range of motion. No jugular venous distention. Respiratory: Normal respiratory effort. Clear to auscultation, bilaterally Cardiovascular: Regular rate and rhythm with normal S1/S2, III/ ANGEL. Left UE bruit/thrills Abdomen: Soft, non-tender, non-distended with normal bowel sounds. No rebound or guarding. Musculoskeletal: No clubbing, cyanosis or edema bilaterally. Full range of motion without deformity, +2 peripheral pulses in all extremities. Skin: Skin color, texture, turgor normal. No rashes or lesions. Neurologic: Neurovascularly intact without any focal sensory/motor deficits. Cranial nerves: II-XIIintact, grossly non-focal. Medications: Current Facility-Administered Medications: acetaminophen (Tylenol) tablet 650 mg, 650 mg, Oral, q6h PRN OR acetaminophen (Tylenol) suppository 650 mg, 650 mg, Rectal, q6h PRN, Earlene Irving MD apixaban (Eliquis) tablet 5 mg, 5 mg, Oral, BID, Rj Villela MD LORazepam (Ativan) tablet 0.5 mg, 0.5 mg, Oral, q6h PRN, Earlene Irving MD metoprolol succinate XL (Toprol-XL) 24 hr tablet 25 mg, 25 mg, Oral, Daily, Rj Villela MD nicotine (Nicoderm, Step 1) 21 MG/24HR patch 1 patch, 1 patch, TransDERmal, Daily PRN OR nicotine (Nicoderm, Step 2) 14 MG/24HR patch 1 patch, 1 patch, TransDERmal, Daily PRN OR nicotine (Nicoderm, Step 3) 7 MG/24HR patch 1 patch, 1 patch, TransDERmal, Daily PRN OR nicotine polacrilex (Nicorette) gum 2 mg, 2 mg, Mouth/Throat, q1h PRN, Earlene Irving MD ondansetron ODT (Zofran-ODT) disintegrating tablet 4 mg, 4 mg, Oral, q8h PRN OR ondansetron (Zofran) injection 4 mg, 4 mg, IntraVENous, q6h PRN, Earlene Irving MD polyethylene glycol (PEG) 3350 (Miralax) packet 17 g, 17 g, Oral, Daily PRN, Earlene Irving MD Current Outpatient Medications: amLODIPine-atorvastatin (Caduet) 10-20 MG tablet, Take 1 tablet by mouth in the morning., Disp: , Rfl: emollient (Biafine) cream, Apply topically 2 times daily., Disp: 454 g, Rfl: 0 phosphorus (K Phos Neutral) tablet, Take 1 tablet by mouth in the morning and 1 tablet before bedtime., Disp: , Rfl: pramoxine-zinc acetate (CALADryl) 1-0.1 % lotion, Apply topically 2 times daily as needed for itching or irritation., Disp: 177 mL, Rfl: 0 Assessment Data: (CAT1) Reviewed 3 or more notes from different specialty or health system (each=1). (CAT1) Reviewed 3 or more labs/studies ordered by another provider not previously counted (each=1, panels count as 1). (CAT3) Mgmt of the patient was discussed with Dr. Murillo and Dr. Villela, who stated, in summary: Ok to DC home today. Will continue Toprol only for now (LOW: 2x CAT1 or independent historian MOD: 3x CAT1 or 1x CAT3 EXTENSIVE: 3x CAT1 and 1x CAT3) Acute, acute on chronic, unstable/uncontrolled chronic problems/diagnoses: Paroxysmal Afib RVR: converted to SR. Continue PO Metoprolol only for now. Per Nephrology, pt was on Labetalol previously, so will DC this. Eduction provided re: Apixaban. Mod-severe aortic stenosis: pt may need valve replacement. Cardiology will arrange follow-up RV dysfunction Stable chronic problems affecting care, new non-acute diagnoses: ESRD on HD Nicotine dependence Anxiety Plan As a result of the above findings & factors, the following additional mgmt was pursued: - DVT prophylaxis: encourage ambulation and already anticoagulated Toxic drug monitoring/narrow therapeutic index drug monitoring : # Drug name : # Route administered : # Method of monitoring : Complexity: Acute illness with systemic symptoms (MOD). Risk: Prescription drug/IVF/colloid was initiated, discontinued, adjusted; or reviewed with decision to maintain current orders (MOD). Advance Directive: Full Code Anticipated Discharge - Date - 08/17 - Location - Home Extended Emergency Contact Information Primary Emergency Contact: Alexx Snyder [address]: [address] [place] [id number] [place] Relation: Child DENIA Lorenzo CNP Division of Hospitalist Medicine [facility]patient Medical Services[place] Comment: Please note this report has been produced using speech recognition software and may contain errors related to that system including errors in grammar, punctuation, and spelling, as well as words and phrases that may be inappropriate. If there is any questions or concerns please feel free to contact the dictating provider for clarification. The time stamp on this note does not reflect time that patient was seen during the day; it reflects time of documentation. documented in this [facility]-21-2023 Consult note* Rj Villela MD - 08/17/2023 10:16 AM ESTAssociated Order(s): IP CONSULT TO CARDIOLOGY [facility] CARDIOLOGY CONSULTATION Patient Name: Jun Snyder : 1965 Date of Service: 08/17/23 Reason for Consultation: A-fib History Jun Snyder is a 57 y.o.year-old male with no prior cardiac history. He has end-stage renal disease on dialysis for IgA nephropathy. He was sent to the ED yesterday from dialysis after being found to have an irregular rapid heartbeat, heart rate in the 140 bpm range with associated low blood pressure. EKG in the ED did confirm A-fib. He has apparently had some elevated heart rates for the past week. He had not noticed this prior to the past week, however does report intermittent lightheadedness at dialysis at times and also some shortness of breath with heavier exertion such as try to walk fast or go up stairs. He denies associated chest discomfort. Exertional dyspnea has been present for a year or 2. In the ED last night he converted back to sinus rhythm just before 11 PM. He is in sinus this morning and has no current complaints. Impression and Recommendations Paroxysmal atrial fibrillation. We discussed atrial fibrillation in detail including pathophysiology, treatment, and prognosis. We reviewed the nuances of rhythm vs rate control and the risks and benefits of anticoagulation. I would recommend starting a low-dose metoprolol to prevent rapid ventricular rates and possibly reduce likelihood of A-fib recurrence. If he continues to have significant A-fib burden, consider amiodarone or catheter ablation. Choice of other antiarrhythmic medications is limited by his renal and cardiacdisease. I would recommend Eliquis for stroke prevention which should be given at the 5 mg twice daily dialysis dose. Amlodipine may need to be reduced or eliminated to allow the beta-mono, or possibly only given on nondialysis days. 2. Aortic stenosis. I personally reviewed his echo. He has moderately severe aortic stenosis. I discussed this with him. He may very well need aortic valve replacement by SAVR or TAVR in the near future. Unclear if thisis the cause of his effort dyspnea which may very well be multifactorial given ongoing tobacco use,probably some degree of deconditioning. We will arrange follow-up and have a low threshold for referral to valve clinic to consider an intervention. 3. RV dysfunction. This is also notable on his echo. He does not have particularly elevated pulmonary pressures or evidence of hypervolemia (IVC is not dilated) so it may be some degree of cor pulmonale if he has underlying lung disease or possibly related to left heart disease. Rj Villela M.D., F.A.C.C. Nut And Bolt Assembler Chief, Division of Cardiac Imaging Clinical Egg Tester, [facility] Data Collection Cardiac Testin08/16/23 ECG 12-LEAD 08/17/2023 6:57 AM (Final) Impression ATRIAL FIBRILLATION, V-RATE 88-139 INCOMPLETE RIGHT BUNDLE BRANCH BLOCK PROBABLE LEFT VENTRICULAR HYPERTROPHY Compared to ECG 10/19/2019 08:01:11 Sinus rhythm no longer present Atrial abnormality no longer present Electronically Signed On 08-17-2023 6:57:31 EST by Ruy Milton Signed by: Ruy Milton MD on 08/17/2023 6:57 AM Past Medical History: has a past medical history of Hemodialysis patient ([facility]/HCC) (HCC), Hypertension, and IgA nephropathy. He has no past medical history of Difficult intubation, PONV (postoperative nausea and vomiting), Prolonged emergence from general anesthesia, Retention of urine, or Spinal headache. SurgicalHistory: has a past surgical history that includes Appendectomy; hx av fistula creation; IR fistulagram (08/07/2022); Fistulagram (Left, 09/15/2021); and Tonsillectomy. Social History: reports that he has been smoking cigarettes. He has been smoking an average of 1 pack per day. He has never used smokeless tobacco. He reports current alcohol use. He reports that he does not use drugs. Family History: family history is not on file. HomeMedications: Prior to Admission medications Medication Sig Start Date End Date Taking? Authorizing Provider amLODIPine-atorvastatin (Caduet) 10-20 MG tablet Take 1 tablet by mouth in the morning. Historical Provider, emollient (Biafine) cream Apply topically 2 times daily. 05/01/23 Jese Frank MD phosphorus (K Phos Neutral) tablet Take 1 tablet by mouth in the morning and 1 tablet before bedtime. Historical Provider, pramoxine-zinc acetate (CALADryl) 1-0.1 % lotion Apply topically 2 times daily as needed for itching or irritation. 05/01/23 Jese Frank MD Scheduled medications: heparin, 5,000 Units, SubCUTAneous, 2 times per day metoprolol succinate XL, 25 mg, Oral, Daily Allergies: Lisinopril Other relevant review of systems: Review of Systems Respiratory: Positive for shortness of breath. Negative for cough. Cardiovascular: Positive for palpitations. Negative for chest pain and leg swelling. Neurological: Positive for dizziness. All other systems reviewed and are negative. Physical Exam: Vitals: 08/17/23 0412 08/17/23 0415 08/17/23 0850 08/17/23 0913 BP: (!) 83/49 108/55 BP Location: Right leg Patient Position: Pulse: 83 80 Resp: 16 Temp: 37.8 C (100.1 F) 37.2 C (99 F) TempSrc: Temporal Temporal SpO2: 91% 97% Weight: 200 lb (90.7 kg) Height: 5' 10 (1.778 m) No intake or output data in the 24 hours ending 08/17/23 1016 Wt Readings from Last 4 Encounters: 08/17/23 200 lb (90.7 kg) 05/01/23 200 lb (90.7 kg) 08/07/22 200 lb (90.7 kg) 12/18/20 188 lb (85.3 kg) Physical Exam Vitals reviewed. Constitutional: General: He is not in acute distress. Eyes: General: No scleral icterus. Conjunctiva/sclera: Conjunctivae normal. Cardiovascular: Rate and Rhythm: Normal rate. Heart sounds: S1 normal. Murmur heard. Systolic murmur is present with a grade of 3/6. No gallop. Arteriovenous access: Left arteriovenous access is present. Comments: Left upper extremity fistula Pulmonary: Effort: Pulmonary effort is normal. Breath sounds: Normal breath sounds. No wheezing or rales. Abdominal: General: There is no distension. Palpations: Abdomen is soft. Musculoskeletal: Right lower leg: No edema. Left lower leg: No edema. Skin: General: Skin is warm and dry. Neurological: Mental Status: He is alert. Psychiatric: Mood and Affect: Mood normal. [employer] Work Phone: [phone] 797-129411-21-2023 Consult note* Rj Villela MD - 08/17/2023 10:16 AM ESTAssociated Order(s): IP CONSULT TO CARDIOLOGY [employer] CARDIOLOGY CONSULTATION Patient Name: Jun Snyder : 1965 Date of Service: 08/17/23 Reason for Consultation: A-fib History Jun Snyder is a 57 y.o.year-old male with no prior cardiac history. He has end-stage renal disease on dialysis for IgA nephropathy. He was sent to the ED yesterday from dialysis after being found to have an irregular rapid heartbeat, heart rate in the 140 bpm range with associated low blood pressure. EKG in the ED did confirm A-fib. He has apparently had some elevated heart rates for the past week. He had not noticed this prior to the past week, however does report intermittent lightheadedness at dialysis at times and also some shortness of breath with heavier exertion such as try to walk fast or go up stairs. He denies associated chest discomfort. Exertional dyspnea has been present for a year or 2. In the ED last night he converted back to sinus rhythm just before 11 PM. He is in sinus this morning and has no current complaints. Impression and Recommendations Paroxysmal atrial fibrillation. We discussed atrial fibrillation in detail including pathophysiology, treatment, and prognosis. We reviewed the nuances of rhythm vs rate control and the risks and benefits of anticoagulation. I would recommend starting a low-dose metoprolol to prevent rapid ventricular rates and possibly reduce likelihood of A-fib recurrence. If he continues to have significant A-fib burden, consider amiodarone or catheter ablation. Choice of other antiarrhythmic medications is limited by his renal and cardiacdisease. I would recommend Eliquis for stroke prevention which should be given at the 5 mg twice daily dialysis dose. Amlodipine may need to be reduced or eliminated to allow the beta-mono, or possibly only given on nondialysis days. 2. Aortic stenosis. I personally reviewed his echo. He has moderately severe aortic stenosis. I discussed this with him. He may very well need aortic valve replacement by SAVR or TAVR in the near future. Unclear if thisis the cause of his effort dyspnea which may very well be multifactorial given ongoing tobacco use,probably some degree of deconditioning. We will arrange follow-up and have a low threshold for referral to valve clinic to consider an intervention. 3. RV dysfunction. This is also notable on his echo. He does not have particularly elevated pulmonary pressures or evidence of hypervolemia (IVC is not dilated) so it may be some degree of cor pulmonale if he has underlying lung disease or possibly related to left heart disease. Rj Villela M.D., F.A.C.C. Nut And Bolt Assembler Chief, Division of Cardiac Imaging Clinical Egg Tester, [facility] Data Collection Cardiac Testin08/16/23 ECG 12-LEAD 08/17/2023 6:57 AM (Final) Impression ATRIAL FIBRILLATION, V-RATE 88-139 INCOMPLETE RIGHT BUNDLE BRANCH BLOCK PROBABLE LEFT VENTRICULAR HYPERTROPHY Compared to ECG 10/19/2019 08:01:11 Sinus rhythm no longer present Atrial abnormality no longer present Electronically Signed On 08-17-2023 6:57:31 EST by Ruy Milton Signed by: Ruy Milton MD on 08/17/2023 6:57 AM Past Medical History: has a past medical history of Hemodialysis patient (CMS/HCC) (HCC), Hypertension, and IgA nephropathy. He has no past medical history of Difficult intubation, PONV (postoperative nausea and vomiting), Prolonged emergence from general anesthesia, Retention of urine, or Spinal headache. SurgicalHistory: has a past surgical history that includes Appendectomy; hx av fistula creation; IR fistulagram (08/07/2022); Fistulagram (Left, 09/15/2021); and Tonsillectomy. Social History: reports that he has been smoking cigarettes. He has been smoking an average of 1 pack per day. He has never used smokeless tobacco. He reports current alcohol use. He reports that he does not use drugs. Family History: family history is not on file. HomeMedications: Prior to Admission medications Medication Sig Start Date End Date Taking? Authorizing Provider amLODIPine-atorvastatin (Caduet) 10-20 MG tablet Take 1 tablet by mouth in the morning. Historical Provider, emollient (Biafine) cream Apply topically 2 times daily. 05/01/23 Jese Frank MD phosphorus (K Phos Neutral) tablet Take 1 tablet by mouth in the morning and 1 tablet before bedtime. Historical Provider, pramoxine-zinc acetate (CALADryl) 1-0.1 % lotion Apply topically 2 times daily as needed for itching or irritation. 05/01/23 Jese Frank MD Scheduled medications: heparin, 5,000 Units, SubCUTAneous, 2 times per day metoprolol succinate XL, 25 mg, Oral, Daily Allergies: Lisinopril Other relevant review of systems: Review of Systems Respiratory: Positive for shortness of breath. Negative for cough. Cardiovascular: Positive for palpitations. Negative for chest pain and leg swelling. Neurological: Positive for dizziness. All other systems reviewed and are negative. Physical Exam: Vitals: 08/17/23 0412 08/17/23 0415 08/17/23 0850 08/17/23 0913 BP: (!) 83/49 108/55 BP Location: Right leg Patient Position: Pulse: 83 80 Resp: 16 Temp: 37.8 C (100.1 F) 37.2 C (99 F) TempSrc: Temporal Temporal SpO2: 91% 97% Weight: 200 lb (90.7 kg) Height: 5' 10 (1.778 m) No intake or output data in the 24 hours ending 08/17/23 1016 Wt Readings from Last 4 Encounters: 08/17/23 200 lb (90.7 kg) 05/01/23 200 lb (90.7 kg) 08/07/22 200 lb (90.7 kg) 12/18/20 188 lb (85.3 kg) Physical Exam Vitals reviewed. Constitutional: General: He is not in acute distress. Eyes: General: No scleral icterus. Conjunctiva/sclera: Conjunctivae normal. Cardiovascular: Rate and Rhythm: Normal rate. Heart sounds: S1 normal. Murmur heard. Systolic murmur is present with a grade of 3/6. No gallop. Arteriovenous access: Left arteriovenous access is present. Comments: Left upper extremity fistula Pulmonary: Effort: Pulmonary effort is normal. Breath sounds: Normal breath sounds. No wheezing or rales. Abdominal: General: There is no distension. Palpations: Abdomen is soft. Musculoskeletal: Right lower leg: No edema. Left lower leg: No edema. Skin: General: Skin is warm and dry. Neurological: Mental Status: He is alert. Psychiatric: Mood and Affect: Mood normal. documented in this [facility]11-20-2023 History and physical note* Earlene Irving MD - 08/16/2023 8:38 PM EST Images from the original note were not included. History and Physical [facility] Jun Snyder : 1965 AGE 57 y.o. YEARS Note Date 08/16/2023 Primary Care Physician:DARYN LOOMIS MD Current Providers as of 08/16/2023 PCP: Daryn Loomis MD Referring Provider: not found, starting on WedAug 16, 2023 12:00 AM Admitting Provider: Earlene Irving MD, (Active) Attending Provider: Dangelo Horne DO, starting on WedAug 16, 2023 6:46 PM (Active) Attending Provider: Earlene Irving MD, starting on WedAug 16, 2023 8:09 PM (Active) Physician Boiler Welder: Sha Granados PA-C, starting on WedAug 16, 2023 6:22 PM (Active) Registered Nurse: Susanna Cortez RN, starting on WedAug 16, 2023 7:18 PM (Active) Registered Nurse: Vashti Yeh RN, starting on WedAug 16, 2023 8:13 PM (Active) Chief Complaint: Palpitations (Pt presents to ED with concern for possible Afib. States that he wasseen at dialysis when the provider felt his heart rate and felt like it was abnormal with a HR of 140bpm. Denies any h/o Afib. Reports some recent hyperkalemia and high Phosphorus levels. ) HPI: He reports his bp was low and his pulse was high at dialysis He reports his pulse has been 130's to 140's he believes over the past week This is brand-new for him When he was getting dialysis his trim master operator detected irregular rhythm suspected A-fib and referred him over He is not known to have A-fib in the past he denies using caffeine He has not felt well recently although he did not really have any chest pain he had minimal palpitations was just slightly short of breath otherwise did not have a lot of other symptoms He was on medication of labetalol he took this some time but not all the time as his blood pressurewould be low around the time of dialysis so recently he was not taking Review of Systems: General: Skin: HEENT: Cardiovascular Fever n Rashes n Difficulty chewing Chest Pain n Chills n Sores n Appetite Loss Chest Pressure n Fatigue y Epistaxis Orthopnea Sweats n Hearing loss Palpitations y GI: Tinnitus GERD n Vision quality RESP: Abdominal Pain n : He makes very little urine SOB/RAMOS y Nausea n Hematuria Cough n Vomiting n Dysuria Productive/Sputum n Hematemesis n NEURO: Lightheaded today Urgency Hemoptysis n Diarrhea n Headaches n Frequency Wheezing n Constipation n Seizures n Times at night urinating Heamatochezia n Neuropathy n catheter present MSK: Melena Focal weakness Hesitancy Focal Numbness Incontinence Acute joint pain n Dizzy/Vertigo Redness n Difficulty speaking Heme/Lymph Swelling n Difficulty walking Lymphadenopathy Myalgia n Ataxia Chronic joint pain n Past Medical History: Diagnosis Date Hemodialysis patient ([facility]) (HCC) Hypertension IgA nephropathy Past Surgical History: Procedure Laterality Date APPENDECTOMY FISTULAGRAM (HISTORICAL) Left 09/15/2021 LEFT UPPER ARM HX AV FISTULA CREATION IR FISTULAGRAM 08/07/2022 IR FISTULAGRAM 08/07/2022 [facility] IR IMAGING TONSILLECTOMY (HISTORICAL) Allergies Allergen Reactions Lisinopril Swelling Medications Prior to Admission: Current Outpatient Medications Medication Instructions amLODIPine-atorvastatin (Caduet) 10-20 MG tablet 1 tablet, Oral, Daily emollient (Biafine) cream Topical, 2 times daily phosphorus (K Phos Neutral) tablet 1 tablet, Oral, 2 times daily pramoxine-zinc acetate (CALADryl) 1-0.1 % lotion Topical, 2 times daily PRN He reports he is not on the amlodipine above but was written to be on it labetalol but did not always take this as his blood pressure might be low around the time of dialysis Social History Social History Tobacco Use Smoking status: Every Day Packs/day: 1 Types: Cigarettes Smokeless tobacco: Never Substance Use Topics Alcohol use: Yes Family History No family history on file. Physical Exam Temp (24hrs), Av.2 C (97.1 F), Min:36.2 C (97.1 F), Max:36.2 C (97.1 F) BP 101/63 (BP Location: Right arm, Patient Position: Lying) Comment: Simultaneous filing. User may not have seen previous data. Pulse 107 Comment: Simultaneous filing. User may not have seen previous data. Temp 36.2 C (97.1 F) (Temporal) Resp 16 Comment: Simultaneous filing. User may not haveseen previous data. SpO2 99% Comment: Simultaneous filing. User may not have seen previous data. Pulse Ox: SpO2 Av % Min: 99 % Max: 99 % Supplemental O2: General appearance: He is currently little anxious but alert and cooperative with exam HEENT: Normal cephalic, atraumatic without obvious deformity. Pupils equal, round, and reactive to light. Extra ocular muscles intact. Conjunctivae/corneas clear. Neck: Supple, with full range of motion. No jugular venous distention. Trachea midline. No lymphadenopathy. Respiratory: Normal respiratory effort. Clear to auscultation, bilaterally without Rales/Wheezes/Rhonchi. Cardiovascular: Currently has regular rate and rhythm no murmurs rubs or gallops he is sinus on telemetry. Abdomen: Soft, non-tender, non-distended with normal bowel sounds. No rebound or guarding. Musculoskeletal: He has a fistula present in his left upper arm with palpable thrill Skin: Skin color, texture, turgor normal. No rashes or lesions. Neurologic: Neurovascularly intact without any focal sensory/motor deficits. Cranial nerves grosslyintact. Labs Admission on 08/16/2023 Component Date Value Heart Rate 08/16/2023 109 QRSD Interval 08/16/2023 114 QT Interval 08/16/2023 364 QTC Interval 08/16/2023 491 QRS [place] 08/16/2023 61 T Wave [place] 08/16/2023 -20 SODIUM 08/16/2023 133 (L) POTASSIUM 08/16/2023 4.5 CHLORIDE 08/16/2023 93 (L) CARBON DIOXIDE 08/16/2023 25 UREA NITROGEN 08/16/2023 40 (H) CREATININE 08/16/2023 6.01 (H) GLUCOSE 08/16/2023 110 (H) CALCIUM 08/16/2023 9.1 ANION GAP 08/16/2023 15 (H) eGFR 08/16/2023 10.2 (L) Auto WBC 08/16/2023 9.5 RBC 08/16/2023 4.60 Hemoglobin 08/16/2023 14.5 Hematocrit 08/16/2023 41.6 MCV 08/16/2023 90.5 MCH 08/16/2023 31.5 MCHC 08/16/2023 34.8 RDW 08/16/2023 14.7 (H) Platelets 08/16/2023 254 MPV 08/16/2023 7.3 (L) nRBC 08/16/2023 0.1 Neutrophils Relative 08/16/2023 65.9 Lymphocytes Relative 08/16/2023 14.2 (L) Monocytes Relative 08/16/2023 13.5 (H) Eosinophils Relative 08/16/2023 5.1 Basophils Relative 08/16/2023 1.3 Neutrophils Absolute 08/16/2023 6.2 Lymphocytes Absolute 08/16/2023 1.3 Monocytes Absolute 08/16/2023 1.3 (H) Eosinophils Absolute 08/16/2023 0.5 Basophils Absolute 08/16/2023 0.1 TROPONIN I 08/16/2023 0.037 (H) EKG Encounter Date: 08/16/23 ECG 12 lead Result Value Heart Rate 109 QRSD Interval 114 QT Interval 364 QTC Interval 491 P [place] QRS [place] 61 T Wave [place] -20 SC Interval Impression ATRIAL FIBRILLATION, V-RATE 88-139 INCOMPLETE RIGHT BUNDLE BRANCH BLOCK PROBABLE LEFT VENTRICULAR HYPERTROPHY Compared to ECG 10/19/2019 08:01:11 Sinus rhythm no longer present Atrial abnormality no longer present Assessment/Plan and Medical Decision Making New Onset afib Based upon his history duration of likely 1 week He has no known prior history of arrhythmias or cardiac disease He was written to be given some Toprol-XL. However he spontaneously converted into sinus rhythm andis currently in sinus rhythm We will bring him in the hospital for further evaluation we will monitor him on telemetry asked cardiology to eval we will additionally request echocardiogram. He is not experiencing chest pain but he is a current smoker and I do not see a recent cardiac work-up in the computer EKG on admission did confirm atrial fibrillation but he is currently in sinus rhythm Anticoagulation yet to be determined His current [id number] score would be 1 based upon history of hypertension Esrd on hd He is status post dialysis yesterday. Have access in left upper arm fistula. Currently on exam looks to be euvolemic Nicotine abuse As needed patches or gum ordered Anxiety Anxious. As needed Ativan will be given if he wants it Resume diet -DVT prophylaxis: [] Lovenox [x] Heparin [] SCDs [x] Encourage ambulation [] Already on Anticoagulation [] Pharmocologic prophylaxis on hold to due risk bleed/procedure 08/16/2023 Jun Snyder [id number] Any scheduled follow up appointments No future appointments. Extended Emergency Contact Information Primary Emergency Contact: Alexx Snyder [address]: [address] [place] [address] of [facility] Mobile Relation: Child Portions of this note may be electronically transcribed. Please forward a copy of this H&P to the primary care physician. [facility] [id number] History and physical note* Earlene Irvnig MD - 08/16/2023 8:38 PM EST Images from the original note were not included. History and Physical [facility] Jun Snyder : 1965 AGE 57 y.o. YEARS Note Date 08/16/2023 Primary Care Physician:DARYN LOOMIS MD Current Providers as of 08/16/2023 PCP: Daryn Loomis MD Referring Provider: not found, starting on WedAug 16, 2023 12:00 AM Admitting Provider: Earlene Irving MD, (Active) Attending Provider: Dangelo Horne DO, starting on WedAug 16, 2023 6:46 PM (Active) Attending Provider: Earlene Irving MD, starting on WedAug 16, 2023 8:09 PM (Active) Physician Boiler Welder: Sha Granados PA-C, starting on WedAug 16, 2023 6:22 PM (Active) Registered Nurse: Susanna Cortez RN, starting on WedAug 16, 2023 7:18 PM (Active) Registered Nurse: Vashti Yeh RN, starting on WedAug 16, 2023 8:13 PM (Active) Chief Complaint: Palpitations (Pt presents to ED with concern for possible Afib. States that he wasseen at dialysis when the provider felt his heart rate and felt like it was abnormal with a HR of 140bpm. Denies any h/o Afib. Reports some recent hyperkalemia and high Phosphorus levels. ) HPI: He reports his bp was low and his pulse was high at dialysis He reports his pulse has been 130's to 140's he believes over the past week This is brand-new for him When he was getting dialysis his trim master operator detected irregular rhythm suspected A-fib and referred him over He is not known to have A-fib in the past he denies using caffeine He has not felt well recently although he did not really have any chest pain he had minimal palpitations was just slightly short of breath otherwise did not have a lot of other symptoms He was on medication of labetalol he took this some time but not all the time as his blood pressurewould be low around the time of dialysis so recently he was not taking Review of Systems: General: Skin: HEENT: Cardiovascular Fever n Rashes n Difficulty chewing Chest Pain n Chills n Sores n Appetite Loss Chest Pressure n Fatigue y Epistaxis Orthopnea Sweats n Hearing loss Palpitations y GI: Tinnitus GERD n Vision quality RESP: Abdominal Pain n : He makes very little urine SOB/RAMOS y Nausea n Hematuria Cough n Vomiting n Dysuria Productive/Sputum n Hematemesis n NEURO: Lightheaded today Urgency Hemoptysis n Diarrhea n Headaches n Frequency Wheezing n Constipation n Seizures n Times at night urinating Heamatochezia n Neuropathy n catheter present MSK: Melena Focal weakness Hesitancy Focal Numbness Incontinence Acute joint pain n Dizzy/Vertigo Redness n Difficulty speaking Heme/Lymph Swelling n Difficulty walking Lymphadenopathy Myalgia n Ataxia Chronic joint pain n Past Medical History: Diagnosis Date Hemodialysis patient ([facility]/HCC) (HCC) Hypertension IgA nephropathy Past Surgical History: Procedure Laterality Date APPENDECTOMY FISTULAGRAM (HISTORICAL) Left 09/15/2021 LEFT UPPER ARM HX AV FISTULA CREATION IR FISTULAGRAM 08/07/2022 IR FISTULAGRAM 08/07/2022 [facility] IR IMAGING TONSILLECTOMY (HISTORICAL) Allergies Allergen Reactions Lisinopril Swelling Medications Prior to Admission: Current Outpatient Medications Medication Instructions amLODIPine-atorvastatin (Caduet) 10-20 MG tablet 1 tablet, Oral, Daily emollient (Biafine) cream Topical, 2 times daily phosphorus (K Phos Neutral) tablet 1 tablet, Oral, 2 times daily pramoxine-zinc acetate (CALADryl) 1-0.1 % lotion Topical, 2 times daily PRN He reports he is not on the amlodipine above but was written to be on it labetalol but did not always take this as his blood pressure might be low around the time of dialysis Social History Social History Tobacco Use Smoking status: Every Day Packs/day: 1 Types: Cigarettes Smokeless tobacco: Never Substance Use Topics Alcohol use: Yes Family History No family history on file. Physical Exam Temp (24hrs), Av.2 C (97.1 F), Min:36.2 C (97.1 F), Max:36.2 C (97.1 F) BP 101/63 (BP Location: Right arm, Patient Position: Lying) Comment: Simultaneous filing. User may not have seen previous data. Pulse 107 Comment: Simultaneous filing. User may not have seen previous data. Temp 36.2 C (97.1 F) (Temporal) Resp 16 Comment: Simultaneous filing. User may not haveseen previous data. SpO2 99% Comment: Simultaneous filing. User may not have seen previous data. Pulse Ox: SpO2 Av % Min: 99 % Max: 99 % Supplemental O2: General appearance: He is currently little anxious but alert and cooperative with exam HEENT: Normal cephalic, atraumatic without obvious deformity. Pupils equal, round, and reactive to light. Extra ocular muscles intact. Conjunctivae/corneas clear. Neck: Supple, with full range of motion. No jugular venous distention. Trachea midline. No lymphadenopathy. Respiratory: Normal respiratory effort. Clear to auscultation, bilaterally without Rales/Wheezes/Rhonchi. Cardiovascular: Currently has regular rate and rhythm no murmurs rubs or gallops he is sinus on telemetry. Abdomen: Soft, non-tender, non-distended with normal bowel sounds. No rebound or guarding. Musculoskeletal: He has a fistula present in his left upper arm with palpable thrill Skin: Skin color, texture, turgor normal. No rashes or lesions. Neurologic: Neurovascularly intact without any focal sensory/motor deficits. Cranial nerves grosslyintact. Labs Admission on 08/16/2023 Component Date Value Heart Rate 08/16/2023 109 QRSD Interval 08/16/2023 114 QT Interval 08/16/2023 364 QTC Interval 08/16/2023 491 QRS [place] 08/16/2023 61 T Wave [place] 08/16/2023 -20 SODIUM 08/16/2023 133 (L) POTASSIUM 08/16/2023 4.5 CHLORIDE 08/16/2023 93 (L) CARBON DIOXIDE 08/16/2023 25 UREA NITROGEN 08/16/2023 40 (H) CREATININE 08/16/2023 6.01 (H) GLUCOSE 08/16/2023 110 (H) CALCIUM 08/16/2023 9.1 ANION GAP 08/16/2023 15 (H) eGFR 08/16/2023 10.2 (L) Auto WBC 08/16/2023 9.5 RBC 08/16/2023 4.60 Hemoglobin 08/16/2023 14.5 Hematocrit 08/16/2023 41.6 MCV 08/16/2023 90.5 MCH 08/16/2023 31.5 MCHC 08/16/2023 34.8 RDW 08/16/2023 14.7 (H) Platelets 08/16/2023 254 MPV 08/16/2023 7.3 (L) nRBC 08/16/2023 0.1 Neutrophils Relative 08/16/2023 65.9 Lymphocytes Relative 08/16/2023 14.2 (L) Monocytes Relative 08/16/2023 13.5 (H) Eosinophils Relative 08/16/2023 5.1 Basophils Relative 08/16/2023 1.3 Neutrophils Absolute 08/16/2023 6.2 Lymphocytes Absolute 08/16/2023 1.3 Monocytes Absolute 08/16/2023 1.3 (H) Eosinophils Absolute 08/16/2023 0.5 Basophils Absolute 08/16/2023 0.1 TROPONIN I 08/16/2023 0.037 (H) EKG Encounter Date: 08/16/23 ECG 12 lead Result Value Heart Rate 109 QRSD Interval 114 QT Interval 364 QTC Interval 491 P [place] QRS [place] 61 T Wave [place] -20 SC Interval Impression ATRIAL FIBRILLATION, V-RATE 88-139 INCOMPLETE RIGHT BUNDLE BRANCH BLOCK PROBABLE LEFT VENTRICULAR HYPERTROPHY Compared to ECG 10/19/2019 08:01:11 Sinus rhythm no longer present Atrial abnormality no longer present Assessment/Plan and Medical Decision Making New Onset afib Based upon his history duration of likely 1 week He has no known prior history of arrhythmias or cardiac disease He was written to be given some Toprol-XL. However he spontaneously converted into sinus rhythm andis currently in sinus rhythm We will bring him in the hospital for further evaluation we will monitor him on telemetry asked cardiology to eval we will additionally request echocardiogram. He is not experiencing chest pain but he is a current smoker and I do not see a recent cardiac work-up in the computer EKG on admission did confirm atrial fibrillation but he is currently in sinus rhythm Anticoagulation yet to be determined His current [id number] score would be 1 based upon history of hypertension Esrd on hd He is status post dialysis yesterday. Have access in left upper arm fistula. Currently on exam looks to be euvolemic Nicotine abuse As needed patches or gum ordered Anxiety Anxious. As needed Ativan will be given if he wants it Resume diet -DVT prophylaxis: [] Lovenox [x] Heparin [] SCDs [x] Encourage ambulation [] Already on Anticoagulation [] Pharmocologic prophylaxis on hold to due risk bleed/procedure 08/16/2023 Jun Snyder [id number] Any scheduled follow up appointments No future appointments. Extended Emergency Contact Information Primary Emergency Contact: Alexx Snyder Address: [facility] [place] [address] [place] Relation: Child Portions of this note may be electronically transcribed. Please forward a copy of this H&P to the primary care physician. documented in this [facility]11-20-2023 Physician Emergency department Note* Dangelo Horne DO - 08/16/2023 6:16 PM EST Emergency Department Encounter [facility] ED Patient: Jun Snyder : 1965 Date of Evaluation: 08/16/2023 ED Supervising Physician: Dangelo Horne DO I independently examined and evaluated Jun Snyder. This will serve as my Supervisory note and shared attestation. I did perform a substantive portion of the visit including all aspects of the Medical Decision Making. I wore appropriate PPE for the entirety of this encounter. In brief, Jun Snyder is a 57 y.o. male with past medical history of end- stage renal disease on hemodialysis that presents to the emergency department for palpitations. His hemodialysis was cut short because they were concerned about atrial fibrillation. Patient reports palpitations that beganearlier today. Denies prior history of atrial fibrillation or arrhythmias. Patient denying chest pain, dyspnea, lightheadedness at this time. Focused exam: Gen: NAD Heart: Irregular rhythm, tachycardic no murmur Lungs: CTA Brief ED course/MDM: Upon arrival to the ED, patient tachycardic, irregular, but otherwise saturating well on room air. EKG new-onset atrial fibrillation without RVR. Does not need to be rate controlled at this time as ranged between 80s to 110s heart rate. Hemodynamically stable. Plan for admission to medicine further management. Total critical care time today provided was at least 35 minutes. This excludes seperately billable procedure. Critical care time provided that required close evaluation and/or intervention with concern for patient decompensation. All diagnostic, treatment, and disposition decisions were made by myself in conjunction with the ARMIN. For all further details of the patient's emergency department visit, please see their documentation. (Comment: Please note this report has been produced using speech recognition software and may contain errors related to that system including errors in grammar, punctuation, and spelling, as well as words and phrases that may be inappropriate. If there are any questions or concerns please feel freeto contact the dictating provider for clarification.) Dangelo Horne DO [employer] Dangelo Horne DO 08/16/231922 Dangelo Horne DO 08/16/231957 [employer] Phone: [phone] 618-132411-20-2023 Physician Emergency department Note* Sha Granados PA-C - 08/16/2023 6:16 PM EST Emergency Department Encounter [facility] ED Patient: Jun Snyder : 1965 Date of Evaluation: 08/16/2023 ED ARMIN Provider: Sha Granados PA-C EDcare was supervised by Dr. Horne who independently examined and evaluated the patient. Please see their attestation note for further details. Chief Complaint Chief Complaint Patient presents with Palpitations Pt presents to ED with concern for possible Afib. States that he was seen at dialysis when the provider felt his heart rate and felt like it was abnormal with a HR of 140bpm. Denies any h/o Afib. Reports some recent hyperkalemia and high Phosphorus levels. LIANNA Santos was wearing a N95, Surgical mask for the entirety of this encounter. Jun Snyder is a 57 y.o. male who presents to the emergency department for evaluation of palpitations, fatigue. History of end-stage renal disease on hemodialysis Wednesday was at hemodialysis today when they noticed that his heart rate was high, noticed that he was in A-fib, he cut his session about 45 minutes short because of this, sent him here to the emergency department.Patient has no prior history of A-fib or arrhythmias. Patient states that he had palpitations that began earlier today. He is not having any chest pain shortness of breath or lightheadedness at this time.. Does not describe the pain as ripping or tearing sensation. Denies any history of DVT/PE, recent travel/surgery or unilateral leg swelling. Limitations to history: None Outside historians: None Past History Past Medical History: Diagnosis Date Hemodialysis patient (CMS/HCC) (HCC) Hypertension Past Surgical History: Procedure Laterality Date APPENDECTOMY FISTULAGRAM (HISTORICAL) Left 09/15/2021 LEFT UPPER ARM HX AV FISTULA CREATION IR FISTULAGRAM 08/07/2022 IR FISTULAGRAM 08/07/2022 [facility] IR IMAGING TONSILLECTOMY (HISTORICAL) Social History Socioeconomic History Marital status: Single Tobacco Use Smoking status: Every Day Packs/day: 1 Types: Cigarettes Smokeless tobacco: Never Substance and Sexual Activity Alcohol use: Yes Drug use: Never Medications/Allergies Previous Medications AMLODIPINE-ATORVASTATIN (CADUET) 10-20 MG TABLET Take 1 tablet by mouth in the morning. EMOLLIENT (BIAFINE) CREAM Apply topically 2 times daily. PHOSPHORUS (K PHOS NEUTRAL) TABLET Take 1 tablet by mouth in the morning and 1 tablet before bedtime. PRAMOXINE-ZINC ACETATE (CALADRYL) 1-0.1 % LOTION Apply topically 2 times daily as needed for itching or irritation. Allergies Allergen Reactions Lisinopril Swelling Physical Exam BP 101/63 (BP Location: Right arm, Patient Position: Lying) Comment: Simultaneous filing. User may not have seen previous data. Pulse 107 Comment: Simultaneous filing. User may not have seen previous data. Temp 36.2 C (97.1 F) (Temporal) Resp 16 Comment: Simultaneous filing. User may not haveseen previous data. SpO2 99% Comment: Simultaneous filing. User may not have seen previous data. Physical Exam GENERAL APPEARANCE: Awake and alert. Cooperative. HEENT: Normocephalic. Atraumatic. Sclera anicteric. Tolerates saliva. No trismus. NECK: Supple. Trachea midline. CARDIO: Irregular rhythm, not tachycardic during my evaluation. Distal pulses present and equal in all 4 extremities. LUNGS: Respirations unlabored. CTAB. ABDOMEN: Soft. Non-distended. Non-tender throughout. MUSCULOSKELETAL: No acute deformities. SKIN: Warm and dry. NEUROLOGICAL: No gross facial drooping. No obvious neurologic deficits. Electronic Console Display Operator strength symmetrical. Moves all 4 extremities spontaneously. SCREENINGS D Labs: Results for orders placed or performed during the hospital encounter of 08/16/23 Basic metabolic panel Result Value Ref Range SODIUM 133 (L) 135 - 145 mmol/L POTASSIUM 4.5 3.5 - 5.1 mmol/L CHLORIDE 93 (L) 98 - 107 mmol/L CARBON DIOXIDE 25 22 - 30 mmol/L UREA NITROGEN 40 (H) 9 - 20 mg/dL CREATININE 6.01 (H) 0.66 - 1.25 mg/dL GLUCOSE 110 (H) 70 - 100 mg/dL CALCIUM 9.1 8.4 - 10.4 mg/dL ANION GAP 15 (H) 3 - 13 mmol/L eGFR 10.2 (L) >60.0 mL/min/1.73m*2 CBC auto differential Result Value Ref Range Auto WBC 9.5 3.6 - 10.7 10*3/uL RBC 4.60 4.40 - 5.90 10*6/uL Hemoglobin 14.5 13.0 - 18.0 g/dL Hematocrit 41.6 40.0 - 52.0 % MCV 90.5 80.0 - 98.0 fL MCH 31.5 26.0 - 34.0 pg MCHC 34.8 32.0 - 36.0 % RDW 14.7 (H) 11.5 - 14.5 % Platelets 254 140 - 440 10*3/uL MPV 7.3 (L) 7.4 - 12.4 fL nRBC 0.1 0.0 - 2.0 /100 WBCs Neutrophils Relative 65.9 40.0 - 80.0 % Lymphocytes Relative 14.2 (L) 20.0 - 40.0 % Monocytes Relative 13.5 (H) 2.0 - 10.0 % Eosinophils Relative 5.1 1.0 - 6.0 % Basophils Relative 1.3 0.0 - 2.0 % Neutrophils Absolute 6.2 1.8 - 7.0 10*3/uL Lymphocytes Absolute 1.3 1.0 - 4.3 10*3/uL Monocytes Absolute 1.3 (H) 0.0 - 0.8 10*3/uL Eosinophils Absolute 0.5 0.0 - 0.5 10*3/uL Basophils Absolute 0.1 0.0 - 0.2 10*3/uL Troponin, with Serial Reflex Result Value Ref Range TROPONIN I 0.037 (H) <0.034 ng/mL ECG 12 lead Result Value Ref Range Heart Rate 109 bpm QRSD Interval 114 ms QT Interval 364 ms QTC Interval 491 ms P [place] degrees QRS [place] 61 degrees T Wave [place] -20 degrees SC Interval ms Radiographs: XR chest 1 view Final Result 1. Cardiomegaly. 2. No other acute findings. 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 see their note for interpretation of EKG. EMERGENCY DEPARTMENT COURSE and DIFFERENTIAL DIAGNOSIS/MDM: External Records Review: . Social Determinants of Health: . Jun Snyder is a 57 y.o. male who presented to the emergency department for evaluation of A-fib outpatient facility. Patient presented he was slightly tachycardic, irregular rhythm, saturating well on room air, does not need rate controlled at this time heart rate has been ranging between 80 and 110. Differentials include ACS, A-fib, A-fib with RVR, electrolyte abnormality. Work- up showed noleukocytosis, no anemia, slight hyponatremia 133, chronic renal insufficiency, troponin 0.037. Chest x-ray shows cardiomegaly, no other acute process. At this time do feel that patient requires admission for new onset A-fib. Patient except[facility] to [facility]. Final Diagnosis: 1. New onset a-fib (CMS/HCC) ([facility]) Medications - No data to display Diagnoses as of 08/16/232129 New onset a-fib (CMS/HCC) ([facility]) CRITICAL CARE TIME CONSULTS: None PROCEDURES: Unless otherwise noted below, none Procedures DISPOSITION/PLAN Admit 08/16/2023 08:09:48 PM PATIENT REFERRED TO: No follow-up provider specified. DISCHARGE MEDICATIONS: New Prescriptions No medications on file @[facility]([id number]:LAST:1)@ (Please note: Portions of this note were completed with a voice recognition program. Efforts were made to edit the dictations but occasionally words and phrases are mis-transcribed.) Form [id number] Sha Granados PA-C Acute Care [facility] Sha Granados PA-C 08/16/232129 [facility]08-05-2023 Hospital Discharge instructions* Discharge Instructions* Jese Frank MD - 05/01/2023 8:17 PM EDT Take paraffin wax beads baths to soften skin. Apply emolleints to soften skin like aquaphor. what can be done to prevent this health problem? Practice proper hygiene. Practice good hand washing, especially before and after touching the cut site. Do not share towels, razors, and other personal things with someone else. Be careful when you shave your face, underarms, or legs to avoid scratching or cutting your skin. If you cut yourself, keep the area clean and put petroleum jelly on it. documented in this [facility]08-05-2023 Emergency department Note* Jese Frank MD - 05/01/2023 7:35 PM EDT EMERGENCY DEPARTMENT ENCOUNTER Pt Name: Jun Snyder Birthdate 1965 Date of evaluation: 05/01/2023 CHIEF COMPLAINT Chief Complaint Patient presents with Sore Open sore on left arm that bleeds intermittently HISTORY OF PRESENT ILLNESS HPI Jun Snyder is a 57 y.o. male who presents to the emergency department with sore on the left upper extremity. It started 1 month ago and bleeds intermittently. He has left upper extremity dialysis site. Sore is lateral to it. No fever. No numbness. No weakness. He has tried at home thermal therapy to it. He has in the past used glue on it. REVIEW OF SYSTEMS Review of Systems CURRENT MEDICATIONS Previous Medications AMLODIPINE-ATORVASTATIN (CADUET) 10-20 MG TABLET Take 1 tablet by mouth in the morning. PHOSPHORUS (K PHOS NEUTRAL) TABLET Take 1 tablet by mouth in the morning and 1 tablet before bedtime. ALLERGIES Lisinopril FAMILY HISTORY No family history on file. SOCIAL HISTORY Social History Socioeconomic History Marital status: Single Tobacco Use Smoking status: Every Day Packs/day: 1.00 Types: Cigarettes Smokeless tobacco: Never Substance and Sexual Activity Alcohol use: Yes Drug use: Never PHYSICAL EXAM Vitals: 05/01/23200705/01/232035 BP: (!) 148/82 135/85 BP Location: Right arm Right arm Patient Position: Sitting Sitting Pulse: 72 74 Resp: 20 20 Temp: 36.8 C (98.2 F) TempSrc: Oral SpO2: 100% 95% Weight: 90.7 kg (200 lb) Height: 1.778 m (5' 10) Physical Exam Vitals and nursing note reviewed. Constitutional: Appearance: He is not toxic-appearing. Cardiovascular: Rate and Rhythm: Normal rate and regular rhythm. Pulses: Radial pulses are 2+ on the left side. Comments: Left upper extremity dialysis site with good pulse Skin: General: Skin is warm. Comments: Scattered numerous sores in bilateral upper extremities. The left upper extremity site where he was reporting bleeding currently no active bleeding. Neurological: Mental Status: He is alert. Sensory: Sensation is intact. Motor: Motor function is intact. Gait: Gait is intact. Deep Tendon Reflexes: Reflexes are normal and symmetric. Psychiatric: Behavior: Behavior normal. Thought Content: Thought content normal. SCREENINGS Medical decision making Medical Decision Making Problems Addressed: ESRD (end stage renal disease) on dialysis (HCC): complicated acute illness or injury Skin sore: complicated acute illness or injury Risk OTC drugs. Prescription drug management. DIAGNOSTIC RESULTS Procedures/EKG: Physician EKG interpretation can be found in Epiphany if done RADIOLOGY (Per Emergency Physician): Interpretation per the Radiologist below, if available at the time of this note: No orders to display LABS: Labs Reviewed - No data to display Medications ordered: Medications gelatin absorbable (Gelfoam) sponge 1 each (1 each Apply externally Given 05/01/232019) Diagnoses as of 05/01/232038 Skin sore ESRD (end stage renal disease) on dialysis (HCC) * No order type specified * MDM: 57 y.o. presented with complaint of skin bleeding. The differential diagnosis considered: Suprainfection of the skin sore, anticoagulant use during dialysis circuit causing bleeding, irritation from skin picking. He has scattered sores. 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 Follow-up with primary care provider to check renal function panel. Going to start him on Pramox and Diagnostic tests considered but not performed: aerobic culture, as it may cause further bleeding that won't stop I am going to treat patient empirically incase there is a superinfection of the site. Patient is in agreement with this plan. Patient's care was impacted by esrd, presenting with likely uremic pruritus causing skin sores, there is likely underlying atropy of sweat glands . Advised to use emollients Aquaphor We will trial pramoxine topical REVAL: CRITICAL CARE TIME CONSULTS: None PROCEDURES: Procedures FINAL IMPRESSION 1. Skin sore 2. ESRD (end stage renal disease) on dialysis ([facility]) DISPOSITION/PLAN DISPOSITION Discharge 05/01/2023 08:15:56 PM PATIENT REFERRED TO: Daryn Loomis MD [address] [facility] [address] In 1 week [facility] Cardiac, Thoracic [facility] Vascular Specialties [address] [place] [address] [address]ound [address] [address] I prescribed: New Prescriptions EMOLLIENT (BIAFINE) CREAM Apply topically 2 times daily. PRAMOXINE-ZINC ACETATE (CALADRYL) 1-0.1 % LOTION Apply topically 2 times daily as needed for itching or irritation. SULFAMETHOXAZOLE-TRIMETHOPRIM (BACTRIM) 400-80 MG TABLET Take 1 tablet by mouth daily for 3 days. (Comment: this report has been produced using speech recognition software and may contain errors related to that system including errors in grammar, punctuation, and spelling, as well as words and phrases that may be inappropriate) JESE FRANK MD (electronically signed) Jese Frank MD 05/01/232038 * Sony Dacosta RN - 05/01/2023 7:35 PM EDT Patient to ER room 6 without difficulty. Patient is a dialysis patient Wednesday and Wednesday. Patient had dialysis today . Has small sore close to dialysis site that bleeds occasionally. Patient was seen in [facility] a month ago for the same problem. Bed locked and low position, call light within reach. Patient has no further needs. documented in this [facility]08-05-2023 Emergency department Triage note* Sony Dacosta RN - 05/01/2023 7:35 PM EDT Patient to ER room 6 without difficulty. Patient is a dialysis patient Wednesday and Wednesday. Patient had dialysis today . Has small sore close to dialysis site that bleeds occasionally. Patient was seen in [facility] a month ago for the same problem. Bed locked and low position, call light within reach. Patient has no further needs. [id number] Physician Emergency department Note* Jese Frank MD - 05/01/2023 7:35 PM EDT EMERGENCY DEPARTMENT ENCOUNTER Pt Name: Jun Snyder Birthdate 1965 Date of evaluation: 05/01/2023 CHIEF COMPLAINT Chief Complaint Patient presents with Sore Open sore on left arm that bleeds intermittently HISTORY OF PRESENT ILLNESS HPI Jun Snyder is a 57 y.o. male who presents to the emergency department with sore on the left upper extremity. It started 1 month ago and bleeds intermittently. He has left upper extremity dialysis site. Sore is lateral to it. No fever. No numbness. No weakness. He has tried at home thermal therapy to it. He has in the past used glue on it. REVIEW OF SYSTEMS Review of Systems CURRENT MEDICATIONS Previous Medications AMLODIPINE-ATORVASTATIN (CADUET) 10-20 MG TABLET Take 1 tablet by mouth in the morning. PHOSPHORUS (K PHOS NEUTRAL) TABLET Take 1 tablet by mouth in the morning and 1 tablet before bedtime. ALLERGIES Lisinopril FAMILY HISTORY No family history on file. SOCIAL HISTORY Social History Socioeconomic History Marital status: Single Tobacco Use Smoking status: Every Day Packs/day: 1.00 Types: Cigarettes Smokeless tobacco: Never Substance and Sexual Activity Alcohol use: Yes Drug use: Never PHYSICAL EXAM Vitals: 05/01/23200705/01/232035 BP: (!) 148/82 135/85 BP Location: Right arm Right arm Patient Position: Sitting Sitting Pulse: 72 74 Resp: 20 20 Temp: 36.8 C (98.2 F) TempSrc: Oral SpO2: 100% 95% Weight: 90.7 kg (200 lb) Height: 1.778 m (5' 10) Physical Exam Vitals and nursing note reviewed. Constitutional: Appearance: He is not toxic-appearing. Cardiovascular: Rate and Rhythm: Normal rate and regular rhythm. Pulses: Radial pulses are 2+ on the left side. Comments: Left upper extremity dialysis site with good pulse Skin: General: Skin is warm. Comments: Scattered numerous sores in bilateral upper extremities. The left upper extremity site where he was reporting bleeding currently no active bleeding. Neurological: Mental Status: He is alert. Sensory: Sensation is intact. Motor: Motor function is intact. Gait: Gait is intact. Deep Tendon Reflexes: Reflexes are normal and symmetric. Psychiatric: Behavior: Behavior normal. Thought Content: Thought content normal. SCREENINGS Medical decision making Medical Decision Making Problems Addressed: ESRD (end stage renal disease) on dialysis (HCC): complicated acute illness or injury Skin sore: complicated acute illness or injury Risk OTC drugs. Prescription drug management. DIAGNOSTIC RESULTS Procedures/EKG: Physician EKG interpretation can be found in Epiphany if done RADIOLOGY (Per Emergency Physician): Interpretation per the Radiologist below, if available at the time of this note: No orders to display LABS: Labs Reviewed - No data to display Medications ordered: Medications gelatin absorbable (Gelfoam) sponge 1 each (1 each Apply externally Given 05/01/232019) Diagnoses as of 05/01/232038 Skin sore ESRD (end stage renal disease) on dialysis (HCC) * No order type specified * MDM: 57 y.o. presented with complaint of skin bleeding. The differential diagnosis considered: Suprainfection of the skin sore, anticoagulant use during dialysis circuit causing bleeding, irritation from skin picking. He has scattered sores. 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 Follow-up with primary care provider to check renal function panel. Going to start him on Pramox and Diagnostic tests considered but not performed: aerobic culture, as it may cause further bleeding that won't stop I am going to treat patient empirically incase there is a superinfection of the site. Patient is in agreement with this plan. Patient's care was impacted by esrd, presenting with likely uremic pruritus causing skin sores, there is likely underlying atropy of sweat glands . Advised to use emollients Aquaphor We will trial pramoxine topical REVAL: CRITICAL CARE TIME CONSULTS: None PROCEDURES: Procedures FINAL IMPRESSION 1. Skin sore 2. ESRD (end stage renal disease) on dialysis ([facility]) DISPOSITION/PLAN DISPOSITION Discharge 05/01/2023 08:15:56 PM PATIENT REFERRED TO: Daryn Loomis MD [address] [facility] [address] In 1 week [facility], Thoracic [facility] Specialties [address] [place] [phone] Wound Care [address] [address] I prescribed: New Prescriptions EMOLLIENT (BIAFINE) CREAM Apply topically 2 times daily. PRAMOXINE-ZINC ACETATE (CALADRYL) 1-0.1 % LOTION Apply topically 2 times daily as needed for itching or irritation. SULFAMETHOXAZOLE-TRIMETHOPRIM (BACTRIM) 400-80 MG TABLET Take 1 tablet by mouth daily for 3 days. (Comment: this report has been produced using speech recognition software and may contain errors related to that system including errors in grammar, punctuation, and spelling, as well as words and phrases that may be inappropriate) JESE FRANK MD (electronically signed) Jese Frank MD 05/01/232038 [facility] [id number] Miscellaneous Notes* Telephone Encounter - Karly Devika Pss - 01/01/2022 2:36 PM EDT I scheduled him w/ Dr. reid on WednesdayFebruary 16 and left him a detailed vm that I did. This is all have at [facility] bc we are in to March and jair needs a Wednesday or Wednesday bc of dialysis I am sorry, I don't have solution or advise for hospital schedule issues. Next best thing is to discuss with Naomi. May be when Dr. King or Marti come in for special cases to [facility], can this case beincluded at that time. Or if you cancel [facility] schedule and make room for me to come to [facility] any day I can get this done. Thanks! * Telephone Encounter - Karly Kumar - 12/30/2021 10:36 AM EDT Antonio I had him scheduled for his colon w/ you for next WednesdayJanuary 05 but Peggy james said he has to be done at [facility] bc of his hgb. I have no openings at [facility] and I don't know what to do Can you please let me know how to proceed. Thank you Eryn PS I NEED A NEW COLON ORDER FOR [facility] Miscellaneous Notes* Telephone Encounter - Karly Fortune [facility] - 12/30/2021 9:33 AM EDT Antonio Painter saw a patient the other day and he ordered him a colon for blood loss anemia I scheduled him for [facility] but his hgb is 6 so Charo wants him at [facility] . He is also on dialysisand could only do a Wednesday. All docs are booked until March You had a cancellation for next . Can I please put him w/ you? Thank you Eryn documented [facility]-2022 Miscellaneous Notes* Telephone Encounter - Karly Kumar - 12/29/2021 4:18 PM EDT Antonio I know this patient saw Inocencio the other day as a new patient. I have him scheduled her and his hgb is 6 Could you please do an order for me? I have to get him on tayo Thanks Eryn documented in this [facility]Ohio [facility]03-31-2022 History of Present illness Narrative* Rudy Painter MD - 12/25/2021 3:48 PM EDT CHIEF COMPLAINT: Patient presents with: Hemoglobin drop 6.8: Rectal bleeding- labs in Care Everywhere under Summarization This consult was requested by Cindy Patel MD for an opinion regarding anemia. My final recommendations will be communicated to the requesting health care provider by way of the shared medical record for internal providers or letter via the [employer] for external providers. HPI: Jun Snyder is a 56 year old male who presents for Hemoglobin drop 6.8 (Rectal bleeding- labs in Care Everywhere under Summarization ). Patient on dialysis last two years, some rectal bleeding, no constipation. No rectal or abdominal pain. Occasional upper abdominal pain. No indigestion, no nausea or vomiting. Record Review: [facility] / Outside records reviewed. PAST MEDICAL HISTORY Diagnosis Date BLOSSOM (acute kidney injury) (HCC) CKD (chronic kidney disease) Dialysis T//Sat @ [facility], Home hemodialysis since 09/2019 Diverticulosis ESRD (end stage renal disease) (HCC) HTN (hypertension) Leukocytosis Normocytic anemia iron infusions PAST SURGICAL HISTORY Procedure Laterality Date ARTERIOVENOUS FISTULA Left 03/20/2020 Left forearm natural arteriovenous fistula radiocephalic. ARTERIOVENOUS FISTULA Left 06/12/2020 Creation of left brachiocephalic fistula. RENAL BIOPSY 09/2019 TONSILLECTOMY PRIMARY/SECONDARY <AGE 12 US ABD APPENDIX 1988 Allergies: ALLERGIES Allergen Reactions Lisinopril Swelling Medications: sevelamer carbonate (RENVELA) 800 mg tablet Take 3 tablets by mouth three times daily with meals. amLODIPine (NORVASC) 5 mg tablet Take 2 tablets by mouth once daily. FAMILY HISTORY Problem Relation Age of Onset Cancer Mother uterine Breast Cancer Sister Colon Cancer No Family History Employer And Job Title: None on file Years Of Education Completed: Not specified Marital Status: Single Social History Tobacco Use Smoking status: Current Every Day Smoker Packs/day: 1.50 Types: Cigarettes Smokeless tobacco: Never Used Vaping Use Vaping Use: Never used Substance Use Topics Alcohol use: Not Currently Drug use: Never Review of Systems: Review of Systems Constitutional: Positive for fatigue. Gastrointestinal: Positive for abdominal pain. All other systems reviewed and are negative. Are you taking any blood thinners? No Physical Examination: BP 130/72 Pulse 70 Ht 5' 10 (1.78m) Wt 220 lb (99.8kg) BMI 31.57 kg/(m^2). Physical Exam Constitutional: Comments: Left upper extremity fistula HENT: Head: Normocephalic and atraumatic. Eyes: General: No scleral icterus. Conjunctiva/sclera: Conjunctivae normal. Cardiovascular: Rate and Rhythm: Normal rate and regular rhythm. Heart sounds: Normal heart sounds. Pulmonary: Effort: Pulmonary effort is normal. Breath sounds: Normal breath sounds. Abdominal: General: Bowel sounds are normal. Palpations: Abdomen is soft. Musculoskeletal: Cervical back: Neck supple. Skin: General: Skin is warm and dry. Neurological: Mental Status: He is alert and oriented to person, place, and time. Psychiatric: Judgment: Judgment normal. ASSESSMENT: Acute blood loss anemia (primary encounter diagnosis) Rectal bleeding PLAN: Office Visit on 12/25/21 COLONOSCOPY DIAGNOSTIC No follow-ups on file. Rudy Painter MD DATE: 12/25/21 TIME: 3:56 PM documented in this [facility]Ohio [facility]01-31-2020 History of Present illness Narrative* Miracle Jaramillo RN - 10/27/2019 9:00 PM EST Patient left via wheelchair with family member. Pt left with all of documented belongings. * Blane Lei RN - 10/27/2019 2:30 PM EST Patient Name: Glenn Snyder Patient : 1965 Acct: [id number] Date of Admission: 10/19/2019 Room/Bed: 156/1561 Code Status: Full Code Allergies: Allergies Allergen Reactions Lisinopril Had facial swelling and tongue 24 hours after taking Diagnosis: Patient Active Problem List Diagnosis Acute renal failure (ARF) (HCC) Treatment: Hemodialysis 1:1 Priority: Routine Location: Med/Surg/Tele Diabetic: No NPO: No Isolation Precautions: Dialysis Consent for Treatment Verified: Yes Blood Consent Verified: Not Applicable Safety Verified: Identify (I), Consent (C), Equipment (E), HepB Status (B), Orders Complete (O), Access Verified (A) and Timeliness (T) Time out performed prior to access at 1400 hours. Report Received from Primary RN at 1405 hours. Primary RN (First Initial, Last Name, Title): Alex Torres RN Incapacitated Nurse Education Completed: Yes HBsAg ONLY: Date Drawn: October 19, 2019 Results: Negative HBsAb: Date Drawn: October 19, 2019 Results: Unknown Order Dialysis Bath K+ (Potassium): 3 Ca+ (Calcium): 2.5 Na+ (Sodium): 138 HCO3 (Bicarb): 35 Na+ Modeling: Not Applicable Dialyzer: [id number] Dialysate Temperature (C): 36 Blood Flow Rate (BFR): 400 Dialysate Flow Rate (DFR): 700 Access to be Utilized Access: Tunneled Catheter Location: Subclavian Side: Right Needle gauge: Not Applicable + Bruit/Thrill: Not Applicable First Use X-ray Verified: Yes OK to use line order: Yes Site Assessment: Signs and Symptoms of Infection/Inflammation: None If yes: Not Applicable Dressing: Dry and Intact Site Prep: Medical Aseptic Technique Dressing Changed this Treatment: No If yes, by whom: NA - not changed today Date of Last Dressing Change: October 26, [address]?: Yes Red Alcohol Caps in place?: Yes Gauze Dressing?: No Non Dialysis Use?: No Comment: Flows: Lines Reversed, Good, Patent If access problem, who was notified: Pre and Post-Assessment Patient Vitals for the past 8 hrs: Level of Consciousness Oriented X Heart Rhythm Respiratory Quality/Effort O2 Device Bilateral Breath Sounds Skin Color Skin Condition/Temp Appetite Abdomen Inspection Bowel Sounds (All Quadrants) Edema Pain Level 10/27/19 1410 0 3 Regular Unlabored None (Room air) Clear Appropriate for ethnicity Dry Fair Rounded Active None 10/27/19 1826 0 Labs Recent Labs 10/25/19 0338 10/26/19 0503 10/27/19 0545 WBC 11.2* 11.0* 10.6 HGB 9.7* 9.9* 9.5* HCT 28.3* 29.2* 28.3* PLT 252 262 259 Recent Labs 10/25/19 0338 10/26/19 0503 10/27/19 0545 NA 135 136 135 K 4.3 4.2 4.5 CL 95* 94* 93* CO2 26 29 24 BUN 39* 27* 49* CREATININE 9.71* 7.06* 9.99* GLUCOSE 96 95 103* IV Drips and Rate/Dose Safety - Before each treatment: Dialysis Machine No.: [id number] RO Machine No.: [id number] Dialyzer Lot No.: [id number] RO Machine Log Sheet Completed: Yes Machine Alarm Self Test: Completed;Passed (10/27/191409) Machine Autotest: Completed, Passed Air Foam Detector: Tested, Proper Function, pH Reading Extracorporeal Circuit Tested for Integrity: Yes Machine Conductivity: 13.9 Manual Conductivity: 13.7 Machine Ph: 7 Manual Ph: 7 Bleach Test (Neg): Yes Bath Temperature: 96.8 F (36 C) Tubing Lot#: [id number] Conductivity Meter Serial #: [id number] All Connections Secure?: Yes Venous Parameters Set?: Yes Arterial Parameters Set?: Yes Saline Line Double Clamped?: Yes Air Foam Detector Engaged?: Yes Machine Functioning Alarm Free? Yes Prime Given: 200ml Chlorine Testing - Before each treatment and every 4 hours: Treatment Treatment Number: 5 Time On: 8 Time Off: 1817 Treatment Goal: 2500 Weight: 188 lb 11.4 oz (85.6 kg) (10/27/19 141) 1st check: less than 0.1 ppm at: 1402 hours 2nd check: less than 0.1 ppm at: 1702 hours 3rd check: Not Applicable (if greater than 0.1 ppm, then check every 30 minutes from secondary) Access Flows and Pressures Patient Vitals for the past 8 hrs: Blood Flow Rate (ml/min) Ultrafiltration Rate (ml/hr) Ultrafiltration Total Arterial Pressure (mmHg) Venous Pressure (mmHg) TMP Hemodialysis Conductivity DFR Comments Access Visible 10/27/19 1418 200 ml/min 630 ml/hr -120 mmHg 40 80 13.8 700 tx started Yes 10/27/19 1430 400 ml/min 630 ml/hr 143 ml -220 mmHg 120 80 700 stable Yes 10/27/19 1445 400 ml/min 630 ml/hr 204 ml -170 mmHg 180 80 700 UF rate stopped due to pt feeling ligjht headed Yes 10/27/19 1500 400 ml/min 630 ml/hr -180 mmHg 180 80 700 stable Yes 10/27/19 1515 400 ml/hr -180 mmHg 210 80 pt on lab top Yes 10/27/19 1536 400 ml/min 440 ml/hr -180 mmHg 200 80 700 Yes 10/27/19 1545 400 ml/min 440 ml/hr -140 mmHg 170 80 700 son at bedside Yes 10/27/19 1600 400 ml/min -150 mmHg 170 80 700 Yes 10/27/19 1615 400 ml/min 140 ml/hr 215 ml -160 mmHg 170 80 700 stable Yes 10/27/19 1630 400 ml/min 140 ml/hr 250 ml -170 mmHg 170 80 700 stable Yes 10/27/19 1645 400 ml/min 140 ml/hr 281 ml -170 mmHg 190 80 700 family at bedside Yes 10/27/19 1700 400 ml/min 140 ml/hr 296 ml -170 mmHg 180 80 700 stable Yes 10/27/19 1715 400 ml/min 140 ml/hr -180 mmHg 180 80 700 stable Yes 10/27/19 1730 400 ml/min 140 ml/hr 412 ml -180 mmHg 210 80 700 stable Yes 10/27/19 1800 400 ml/min 140 ml/hr 432 ml -180 mmHg 210 80 700 stable Yes 10/27/19 1818 500 ml Yes Vital Signs Patient Vitals for the past 8 hrs: BP Temp Pulse Resp SpO2 Weight Weight Method Percent Weight Change 10/27/19 1410 108/68 98.4 F (36.9 C) 82 16 98 % 188 lb 11.4 oz (85.6 kg) Bed scale -0.05 10/27/19 1418 99/65 84 10/27/19 1430 93/60 84 10/27/19 1445 81/60 71 10/27/19 1500 95/61 78 10/27/19 1515 101/69 77 10/27/19 1536 105/66 82 10/27/19 1545 116/68 80 10/27/19 1600 116/67 77 10/27/19 1615 124/73 77 10/27/19 1630 107/77 82 10/27/19 1645 (!) 140/80 79 10/27/19 1700 137/76 83 10/27/19 1715 130/80 83 10/27/19 1730 128/78 85 10/27/19 1800 99/71 89 10/27/19 1818 118/88 86 10/27/19 1826 127/80 98.9 F (37.2 C) 16 98 % Post-Dialysis Arterial Catheter Locking Solution: Heparin (1000units:1ml) Volume (ml): 1.7 Venous Catheter Locking Solution: Heparin (1000units:1ml) Volume (ml): 1.8 Post-Treatment Procedures: Blood returned, Catheter capped, clamped and heparinized x 2 ports Machine Disinfection Process: Acid/Vinegar Clean, Heat Disinfect, Exterior Machine Disinfection Rinseback Volume (ml): 300 ml Total Liters Processed (l/min): 77.1 l/min Dialyzer Clearance: Lightly streaked Duration of Treatment (minutes): 240 minutes Heparin amount administered during treatment (units): 0 units Hemodialysis Intake (ml): 500 ml Hemodialysis Output (ml): 500 ml NET Removed (ml): 0 ml Tolerated Treatment: Fair Patient Response to Treatment: light headed throughout tx uf goal stop pt rain even to maintain good SBP Physician Notified?: Yes Handoff complete and report given to Primary RN at 1825 hours. Primary RN (First Initial, Last Name, Title): Alex Torres RN Education Person Educated: Patient Knowledge Base: Substantial Barriers to Learning?: None Preferred method of Learning: Oral Topic(s): Access Care, Signs and Symptoms of Infection, Fluid Management, Albumin, Procedural, Medications, Treatment Options, Potassium, Diet and Transplant Teaching Tools: Explanation Response to Education: Verbalized Understanding * Jeana Pedraza MD - 10/27/2019 11:26 AM EST [facility] Progress Note SUBJECTIVE: Glenn Snyder is a 53 y.o. male who is being followed by nephrology for BLOSSOM on CKD . Any overnight events - none No complaints Medications Scheduled Meds: sevelamer 1,600 mg Oral TID WC amLODIPine 5 mg Oral Daily metoprolol tartrate 12.5 mg Oral BID sodium chloride 20 mL Intravenous Once sodium chloride flush 3 mL Intravenous Q8H Continuous Infusions: Prn Meds : ondansetron, hydrALAZINE, heparin (porcine), heparin (porcine) Home Meds: No current facility-administered medications on file prior to encounter. No current outpatient medications on file prior to encounter. OBJECTIVE Physical BP 121/78 Pulse 88 Temp 98.9 F (37.2 C) (Temporal) Resp 14 Ht 5' 10 (1.778 m) Wt 188 lb 12.8 oz (85.6 kg) SpO2 98% BMI 27.09 kg/m 24HR INTAKE/OUTPUT: Intake/Output Summary (Last 24 hours) at 10/27/2019 1126 Last data filed at 10/27/2019 0548 Gross per 24 hour Intake 6 ml Output Net 6 ml General: AAO x 3, speaking in full sentences, no accessory muscle use. HEENT: Atraumatic, normocephalic, no throat congestion, moist mucosa. Eyes: Pupils equal, round and reactive to light, EOMI. Neck: No JVD, no thyromegaly, no lymphadenopathy. Chest: Bilateral vesicular breath sounds, no rales or wheezes. Cardiac: S1 S2 RR, no murmurs, gallops or rubs, JVP not raised. Abdomen: Soft, non-tender, no masses or organomegaly, BS audible. : No suprapubic or flank tenderness. Neuro: AAO x 3, No FND. SKIN: No rashes, good skin turgor. Data Last 3 CMP: Recent Labs 10/25/19 0338 10/26/19 0503 10/27/19 0545 NA 135 136 135 K 4.3 4.2 4.5 CL 95* 94* 93* CO2 26 29 24 BUN 39* 27* 49* CREATININE 9.71* 7.06* 9.99* CALCIUM 8.7 9.0 9.2 Last 3 CBC: Recent Labs 10/25/19 0338 10/26/19 0503 10/27/19 0545 WBC 11.2* 11.0* 10.6 RBC 3.24* 3.36* 3.27* HGB 9.7* 9.9* 9.5* HCT 28.3* 29.2* 28.3* MCV 87.3 87.0 86.7 MCH 30.0 29.5 29.1 MCHC 34.3 33.9 33.6 RDW 13.8 13.9 14.0 PLT 252 262 259 MPV 8.1 8.0 8.2 ASSESSMENT Patient Active Problem List Diagnosis Date Noted Acute renal failure (ARF) (HCC) 10/19/2019 ASSESSMENT/PLAN: 1. BLOSSOM . Pt likely has CKD at baseline. No previous Cr values to compare. CKD could be from HTN induced nephrosclerosis VS GN since the patient has h/o proteinuria /hematuria since 2000 but he never had kidney Bx and never saw trim master operator before BLOSSOM might be from CKD progression Vs RPGN .Doubt the patient has obstructive uropathy since there is no hydronephrosis by CT. CT showed b/l moderate renal atrophy UA showed 200 protein with RBC 6-11. C3C4 are wnl. Hepatitis panel negative. HIV serology is negative. CIARAN, ANCA are negative too Kidney BX done 10/26. Waiting on pathology report.I doubt the kidneys are salvageable due to CT finding of moderately atrophic kidnyes . Pt is likely ESRD. Pt on [facility] HD schedule. Last HD session 10/25 Next HD session today Pt has HD spot at [facility]. 2- Hyperkalemia: resolved with HD 3-high anion gap acidosis likely from CKD and BLOSSOM Resolved with HD 4- Hyperphosphatemia: Continue Phosphorus binder 5- HTN: Improved with HD. Continue same BP meds Monitor BP Ok to d/c patient from nephro stand point Will continue to follow Please call if any question at [phone] JEANA PEDRAZA MD 10/27/2019 11:26 AM * Jeana Pedraza MD - 10/26/2019 4:25 PM EST [facility] Progress Note SUBJECTIVE: Glenn Snyder is a 53 y.o. male who is being followed by nephrology for BLOSSOM on CKD . Any overnight events - none Had kidney Bx today Access change to TC yesterday Medications Scheduled Meds: sevelamer 1,600 mg Oral TID WC amLODIPine 5 mg Oral Daily metoprolol tartrate 12.5 mg Oral BID sodium chloride 20 mL Intravenous Once sodium chloride flush 3 mL Intravenous Q8H Continuous Infusions: Prn Meds : ondansetron, hydrALAZINE, heparin (porcine), heparin (porcine) Home Meds: No current facility-administered medications on file prior to encounter. No current outpatient medications on file prior to encounter. OBJECTIVE Physical BP 115/78 Pulse 96 Temp 98.6 F (37 C) (Temporal) Resp 16 Ht 5' 10 (1.778 m) Wt 188 lb 12.8 oz (85.6 kg) SpO2 97% BMI 27.09 kg/m 24HR INTAKE/OUTPUT: No intake or output data in the 24 hours ending 10/26/19 1625 General: AAO x 3, speaking in full sentences, no accessory muscle use. HEENT: Atraumatic, normocephalic, no throat congestion, moist mucosa. Eyes: Pupils equal, round and reactive to light, EOMI. Neck: No JVD, no thyromegaly, no lymphadenopathy. Chest: Bilateral vesicular breath sounds, no rales or wheezes. Cardiac: S1 S2 RR, no murmurs, gallops or rubs, JVP not raised. Abdomen: Soft, non-tender, no masses or organomegaly, BS audible. : No suprapubic or flank tenderness. Neuro: AAO x 3, No FND. SKIN: No rashes, good skin turgor. Data Last 3 CMP: Recent Labs 10/24/19 0456 10/25/19 0338 10/26/19 0503 NA 135 135 136 K 4.1 4.3 4.2 CL 94* 95* 94* CO2 31* 26 29 BUN 28* 39* 27* CREATININE 7.11* 9.71* 7.06* CALCIUM 8.6 8.7 9.0 Last 3 CBC: Recent Labs 10/24/19 0455 10/25/19 0338 10/26/19 0503 WBC 9.7 11.2* 11.0* RBC 3.10* 3.24* 3.36* HGB 9.2* 9.7* 9.9* HCT 27.0* 28.3* 29.2* MCV 86.9 87.3 87.0 MCH 29.6 30.0 29.5 MCHC 34.1 34.3 33.9 RDW 14.0 13.8 13.9 PLT 245 252 262 MPV 8.4 8.1 8.0 ASSESSMENT Patient Active Problem List Diagnosis Date Noted Acute renal failure (ARF) (HCC) 10/19/2019 ASSESSMENT/PLAN: 1. BLOSSOM . Pt likely has CKD at baseline. No previous Cr values to compare. CKD could be from HTN induced nephrosclerosis VS GN since the patient has h/o proteinuria /hematuria since 2000 but he never had kidney Bx and never saw trim master operator before BLOSSOM might be from CKD progression Vs RPGN .Doubt the patient has obstructive uropathy since there is no hydronephrosis by CT. CT showed b/l moderate renal atrophy UA showed 200 protein with RBC 6-11. C3C4 are wnl. Hepatitis panel negative. HIV serology is negative. CIARAN, ANCA are negative too Kidney BX done today. Waiting on pathology report.I doubt the kidneys are salvageable due to CT finding of moderately atrophic kidnyes . Pt is likely ESRD. Pt on MWF HD schedule. Last HD session 10/25 Next HD session 10/26 Waiting on insurance to find HD spot. Ready from nephro to be discharge whenever he has spot for HD 2- Hyperkalemia: resolved with HD 3-high anion gap acidosis likely from CKD and BLOSSOM Resolved with HD 4- Hyperphosphatemia: Continue Phosphorus binder 5- HTN: Improved with HD. Continue same BP meds Monitor BP Will continue to follow Please call if any question at [phone] JEANA PEDRAZA MD 10/26/2019 4:25 PM * Kimber Bajwa RN - 10/26/2019 10:46 AM EST Patient returned from US renal biopsy. VSS, see record. Bandaide is dry and intact to right flank area. Patient instructed on need for bedrest until 12:45. * Darell Sanches DO - 10/26/2019 8:19 AM EST Hospitalist Progress Note 10/26/2019 8:19 AM [phone]: Please page me ([phone]) for patient care issues. [phone]: Please page [facility] night Hospitalist for any issues. Subjective: Admit Date: 10/19/2019 PCP: No primary care provider on file. Room#: 156/1561 Interval History: No overnight issues. Denies chest pain, sob, abdominal pain, nausea, vomiting, diarrhea, constipation, fevers, or chills. DIET RENAL; Patient Vitals for the past 96 hrs (Last 3 readings): Weight 10/25/19 1527 188 lb 12.8 oz (85.6 kg) 10/25/19 1127 190 lb 0.6 oz (86.2 kg) 10/23/19 2202 201 lb 11.5 oz (91.5 kg) 24HR INTAKE/OUTPUT: Intake/Output Summary (Last 24 hours) at 10/26/2019 0819 Last data filed at 10/25/2019 1527 Gross per 24 hour Intake 500 ml Output 2500 ml Net -2000 ml Past Medical History: History reviewed. No pertinent past medical history. Medications: sevelamer 1,600 mg Oral TID WC amLODIPine 5 mg Oral Daily metoprolol tartrate 12.5 mg Oral BID sodium chloride 20 mL Intravenous Once sodium chloride flush 3 mL Intravenous Q8H LABS: CBC: Recent Labs 10/24/19 0455 10/25/19 0338 10/26/19 0503 WBC 9.7 11.2* 11.0* RBC 3.10* 3.24* 3.36* HGB 9.2* 9.7* 9.9* HCT 27.0* 28.3* 29.2* MCV 86.9 87.3 87.0 RDW 14.0 13.8 13.9 PLT 245 252 262 BMP: Recent Labs 10/24/19 0456 10/25/19 0338 10/26/19 0503 NA 135 135 136 K 4.1 4.3 4.2 CL 94* 95* 94* CO2 31* 26 29 BUN 28* 39* 27* CREATININE 7.11* 9.71* 7.06* GLUCOSE 93 96 95 CALCIUM 8.6 8.7 9.0 ANIONGAP 10 15 14 LIVER PROFILE:No results for input(s): AST, ALT, BILITOT, ALKPHOS, LABALBU, PROT in the last 72 hours. PT/INR: Recent Labs 10/24/19 0456 PROTIME 11.4 INR 1.1 CARDIAC ENZYMES: No results for input(s): TROPONINI in the last 72 hours. Procalcitonin: Lab Results Component Value Date PROCAL 0.74 10/19/2019 Objective: Vitals: BP 112/82 Pulse 97 Temp 99.4 F (37.4 C) (Temporal) Resp 12 Ht 5' 10 (1.778 m) Wt188 lb 12.8 oz (85.6 kg) SpO2 96% BMI 27.09 kg/m Pulse Ox: SpO2 Av.6 % Min: 95 % Max: 99 % Supplemental O2: General appearance: No apparent distress, appears stated age and cooperative with exam HEENT: Normal cephalic, atraumatic without obvious deformity. Pupils equal, round, and reactive to light. Extra ocular muscles intact. Conjunctivae/corneas clear. Neck: Supple, with full range of motion. No jugular venous distention. Trachea midline. No lymphadenopathy. Respiratory: Normal respiratory effort. Clear to auscultation, bilaterally without Rales/Wheezes/Rhonchi. Cardiovascular: Regular rate and rhythm with normal S1/S2 without murmurs, rubs or gallops. Abdomen: Soft, non-tender, non-distended with normal bowel sounds. No rebound or guarding. Musculoskeletal: No clubbing, cyanosis or edema bilaterally. Full range of motion without deformity. Skin: Skin color, texture, turgor normal. No rashes or lesions. Neurologic: Neurovascularly intact without any focal sensory/motor deficits. Cranial nerves: II-XIIintact, grossly non-focal. Assessment 1. BLOSSOM vs progressive CKD now on HD 2. Leukocytosis-reactive>>resolved 3. Diverticulsosis 4. Possible recent angioedema-resolved 5. Normocytic anemia 6. Gram-positive bacillus 1 of 3 sets>>likely contaminate, confirmed with micro lab Plan -daily weights, I&Os, dialysis per trim master operator -renal biopsy and dialysis cath pending, trim master operator following -am labs, replace lytes prn -increase activity -DVT prophylaxis: [] Lovenox [x] Heparin [] SCDs [x] Encourage ambulation [] Already on Anticoagulation Advance Directive: Full Code Discharge planning: Awaiting dialysis cath and renal biopsy. Can be discharge once outpatient dialysis arrangements have been made Darell Sanches DO Division of Hospitalist Medicine Inpatient Medical Services PAGER: [phone] * Ivett Cope RN - 10/25/2019 4:23 PM EST IMS was under the impression that these were already ordered and was upset because [facility] wanted to DCpt. I explained to IMS that no orders were in for either, but that I had t/w IR earlier and pt was to be NPO at midnight in anticipation of the liver biopsy in the AM. IMS stated both the biopsy and the tunneled cath should be done and that pt did not need to be NPO for either. IR states pt needs to be NPO for liver biopsy. Spoke to nephrology last night regarding information/orders for kidney biopsy and tunneled cath placement. Nephrology stated that because the pt does not have insurance, there was concern for his discharge and discharge would likely be delayed; they did not want both procedures done the same day and stated that the biopsy would be done Wednesday and the tunneled cath would likely be done Wednesday. Forwarded this information to IMS, Dr Sanches. Pt placed NPO at midnight. Today, pt dialysis began around 11am and did not complete until 345pm, at which time it was too late for either procedure to be performed by IR. I informed them when dialysis began and ended. IR stated that they would plan to do the tunneled cath sometime tomorrow but that they may not be able todo the biopsy tomorrow. I have forwarded all of this information to nephrology and they are aware. I stated that I will make pt NPO at midnight again tonight, with the anticipation that the biopsy can be performed tomorrow as well as the scheduled tunneled cath. CM working with pt concerning insurance and discharge needs Received a call from [facility] regarding pt dialysis chair spot. Was informed that they willhave a spot for the pt on Wednesday of next week. I explained that plans are for pt to receive tunneled dialysis cath tomorrow, 10/26/2019. She stated that he will have a spot on Oct 30 for dialysis * Ellie Mireles RD, LD - 10/25/2019 4:22 PM EST Nutrition Assessment Type and Reason for Visit: Reassess(pt npo for TDC and renal bx today- ) Nutrition Recommendations: 1)suggest to continue renal diet as tolerated 2) reviewed diet- answered queations- told to limit nuts- unsalted as high in phos. On phos binder.Also discuss with renal Rd 3)new dry wt 188 lbs post hd 4) suggest renal vitamin 5)Monitor labs, status, intakes, weights to reassess. Follow up weekly Nutrition Assessment: 53 yo admitted with acute kidney failure, unct htn ,Normocytic anemia . long hx proteinuria..Pt states onset of nausea, vomiting, and diarrhea was one month ago-Pt states since onset of symptoms he has lost some wt- unsier amt- unintentionally. started hd10/19 - asessions Malnutrition Assessment: Malnutrition Status: At risk for malnutrition Context: Acute illness or injury Findings of the 6 clinical characteristics of malnutrition (Minimum of 2 out of 6 clinical characteristics is required to make the diagnosis of moderate or severe Protein Calorie Malnutrition based on AND/ASPEN Guidelines): 1. Energy Intake-Unable to assess, (unknown - few days- vague - ) 2. Weight Loss-Unable to assess(vague hx), 3. Fat Loss-Unable to assess, 4. Muscle Loss-Unable to assess, 5. Fluid Accumulation-No significant fluid accumulation, 6. Electronic Console Display Operator Strength-Normal Nutrition Risk Level: High Nutrient Needs: Estimated Daily Total Kcal: 7201-6642 Estimated Daily Protein (g): 60-90 Estimated Daily Total Fluid (ml/day): per md Nutrition Diagnosis: Problem: Altered nutrition-related lab values, Predicted suboptimal energy intake, Increased nutrient needs Etiology: related to Renal dysfunction ? Signs and symptoms: as evidenced by Known losses from dialysis, Weight loss, Lab values Objective Information: Nutrition-Focused Physical Findings: appetite improved, no edema, bun 39 , creat 9.71, [id number],on renvela tid- NO DRY WT EST. off 2.6 liters since adm for 6 lbs Wound Type: None Current Nutrition Therapies: Oral Diet Orders: Renal Oral Diet intake: 76-100%, 51-75% Oral Nutrition Supplement (ONS) Orders: None ONS intake: Anthropometric Measures: Ht: 5' 10 (177.8 cm) Current Body Wt: 201 lb (91.2 kg) Admission Body Wt: 220 lb (99.8 kg)(10/19) Usual Body Wt: 220 lb (99.8 kg)(summer 2018) % Weight Change: , na [place] Body Wt: 166 lb (75.3 kg), % [place] Body 121 Adjusted Body Wt: , body weight adjusted for BMI Classification: BMI 30.0 - 34.9 Obese Class I(31.6) Nutrition Interventions: Continue current diet Continued Inpatient Monitoring, Education Needed, Education Initiated, Education Completed(ed done 10/24) Nutrition Evaluation: Evaluation: Progressing toward goals Goals: patient will receive ,tolerate adequate nutrition with safe [place]- labs will trend towardbaseline- meet needs for hd Monitoring: Meal Intake, Diet Tolerance, Skin Integrity, I&O, Weight, Pertinent Labs, Nausea orVomiting, Patient/Family Education Contact Number: [phone] * Darell Sanches DO - 10/25/2019 12:02 PM EST Hospitalist Progress Note 10/25/2019 5:02 PM [phone]: Please page me ([phone]) for patient care issues. [phone]: Please page [facility] night Hospitalist for any issues. Subjective: Admit Date: 10/19/2019 PCP: No primary care provider on file. Room#: 156/1561 Interval History: No overnight issues. Denies chest pain, sob, abdominal pain, nausea, vomiting, diarrhea, constipation, fevers, or chills. DIET RENAL; Patient Vitals for the past 96 hrs (Last 3 readings): Weight 10/25/19 1527 188 lb 12.8 oz (85.6 kg) 10/25/19 1127 190 lb 0.6 oz (86.2 kg) 10/23/19 2202 201 lb 11.5 oz (91.5 kg) 24HR INTAKE/OUTPUT: Intake/Output Summary (Last 24 hours) at 10/25/2019 1702 Last data filed at 10/25/2019 1527 Gross per 24 hour Intake 500 ml Output 2500 ml Net -2000 ml Past Medical History: History reviewed. No pertinent past medical history. Medications: sevelamer 1,600 mg Oral TID WC amLODIPine 5 mg Oral Daily metoprolol tartrate 12.5 mg Oral BID sodium chloride 20 mL Intravenous Once sodium chloride flush 3 mL Intravenous Q8H LABS: CBC: Recent Labs 10/23/19 0400 10/24/19 0455 10/25/19 0338 WBC 10.8* 9.7 11.2* RBC 3.18* 3.10* 3.24* HGB 9.5* 9.2* 9.7* HCT 27.6* 27.0* 28.3* MCV 86.6 86.9 87.3 RDW 13.8 14.0 13.8 PLT 248 245 252 BMP: Recent Labs 10/23/19 0359 10/24/19 0456 10/25/19 0338 NA 135 135 135 K 3.9 4.1 4.3 CL 94* 94* 95* CO2 24 31* 26 BUN 61* 28* 39* CREATININE 11.03* 7.11* 9.71* GLUCOSE 97 93 96 CALCIUM 8.6 8.6 8.7 ANIONGAP 17 10 15 LIVER PROFILE:No results for input(s): AST, ALT, BILITOT, ALKPHOS, LABALBU, PROT in the last 72 hours. PT/INR: Recent Labs 10/24/19 0456 PROTIME 11.4 INR 1.1 CARDIAC ENZYMES: No results for input(s): TROPONINI in the last 72 hours. Procalcitonin: Lab Results Component Value Date PROCAL 0.74 10/19/2019 Objective: Vitals: BP 123/80 Pulse 99 Temp 98.1 F (36.7 C) (Temporal) Resp 20 Ht 5' 10 (1.778 m) Wt188 lb 12.8 oz (85.6 kg) SpO2 99% BMI 27.09 kg/m Pulse Ox: SpO2 Av.7 % Min: 95 % Max: 99 % Supplemental O2: General appearance: No apparent distress, appears stated age and cooperative with exam HEENT: Normal cephalic, atraumatic without obvious deformity. Pupils equal, round, and reactive to light. Extra ocular muscles intact. Conjunctivae/corneas clear. Neck: Supple, with full range of motion. No jugular venous distention. Trachea midline. No lymphadenopathy. Respiratory: Normal respiratory effort. Clear to auscultation, bilaterally without Rales/Wheezes/Rhonchi. Cardiovascular: Regular rate and rhythm with normal S1/S2 without murmurs, rubs or gallops. Abdomen: Soft, non-tender, non-distended with normal bowel sounds. No rebound or guarding. Musculoskeletal: No clubbing, cyanosis or edema bilaterally. Full range of motion without deformity. Skin: Skin color, texture, turgor normal. No rashes or lesions. Neurologic: Neurovascularly intact without any focal sensory/motor deficits. Cranial nerves: II-XIIintact, grossly non-focal. Assessment 1. BLOSSOM vs progressive CKD now on HD 2. Leukocytosis-reactive>>resolved 3. Diverticulsosis 4. Possible recent angioedema-resolved 5. Normocytic anemia 6. Gram-positive bacillus 1 of 3 sets>>likely contaminate, confirmed with micro lab Plan -daily weights, I&Os, dialysis per trim master operator -renal biopsy and dialysis cath pending, trim master operator following -am labs, replace lytes prn -increase activity -DVT prophylaxis: [] Lovenox [x] Heparin [] SCDs [x] Encourage ambulation [] Already on Anticoagulation Advance Directive: Full Code Discharge planning: awaiting dialysis cath and renal biopsy Darell Sanches DO Division of Hospitalist Medicine Inpatient Medical Services PAGER: [phone] * Ramon Mei RN - 10/25/2019 11:46 AM EST Patient Name: Glenn Snyder Patient : 1965 Acct: [id number] Date of Admission: 10/19/2019 Room/Bed: [address] [place] [address] Code Status: Full Code Allergies: Allergies Allergen Reactions Lisinopril Had facial swelling and tongue 24 hours after taking Diagnosis: Patient Active Problem List Diagnosis Acute renal failure (ARF) (HCC) Treatment: Hemodialysis 1:1 Priority: Routine Location: Bedside Diabetic: No NPO: Yes Isolation Precautions: Dialysis Consent for Treatment Verified: Yes Blood Consent Verified: Not Applicable Safety Verified: Identify (I), Consent (C), Equipment (E), HepB Status (B), Orders Complete (O), Access Verified (A) and Timeliness (T) Time out performed prior to access at 1120 hours. Report Received from Primary RN at 0945 hours. Primary RN (First Initial, Last Name, Title): Malick Husain RN Incapacitated Nurse Education Completed: Yes HBsAg ONLY: Date Drawn: October 19, 2019 Results: Negative HBsAb: Date Drawn: no results Results: Unknown Order Dialysis Bath K+ (Potassium): 3 Ca+ (Calcium): 2.5 Na+ (Sodium): 138 HCO3 (Bicarb): 35 Na+ Modeling: Not Applicable Dialyzer: [id number] Dialysate Temperature (C): 36 Blood Flow Rate (BFR): 400 Dialysate Flow Rate (DFR): 700 Access to be Utilized Access: Non-tunneled Catheter Location: Internal Jugular Side: Right Needle gauge: Not Applicable + Bruit/Thrill: Not Applicable First Use X-ray Verified: Yes OK to use line order: Yes Site Assessment: Signs and Symptoms of Infection/Inflammation: None If yes: Not Applicable Dressing: Dry and Intact Site Prep: Medical Aseptic Technique Dressing Changed this Treatment: No If yes, by whom: NA - not changed today Date of Last Dressing Change: October 19, [address]?: Yes Red Alcohol Caps in place?: Yes Gauze Dressing?: No Non Dialysis Use?: No Comment: Flows: Good, Patent If access problem, who was notified: Pre and Post-Assessment Patient Vitals for the past 8 hrs: Level of Consciousness Oriented X Heart Rhythm Respiratory Quality/Effort O2 Device Bilateral Breath Sounds Skin Color Skin Condition/Temp Appetite Abdomen Inspection Bowel Sounds (All Quadrants) Edema Comments Pain Level 10/25/19 0900 None (Room air) 10/25/19 0935 0 Unlabored Appropriate for ethnicity Warm;Dry Soft;Rounded None 10/25/19 1120 0 3 Regular Unlabored None (Room air) Clear Appropriate for ethnicity Warm;Dry Fair Soft;Rounded Audible None 0 10/25/19 1124 tx started 10/25/19 1127 no complaints from pt 10/25/19 1523 0 3 Regular Unlabored Clear Appropriate for ethnicity Warm;Dry Fair Soft;Rounded Nonept has no complaints 10/25/19 1524 tx ended, blood returned 0 10/25/19 1527 blood returned 0 Labs Recent Labs 10/23/19 0400 10/24/19 0455 10/25/19 0338 WBC 10.8* 9.7 11.2* HGB 9.5* 9.2* 9.7* HCT 27.6* 27.0* 28.3* PLT 248 245 252 Recent Labs 10/23/19 0359 10/24/19 0456 10/25/19 0338 NA 135 135 135 K 3.9 4.1 4.3 CL 94* 94* 95* CO2 24 31* 26 BUN 61* 28* 39* CREATININE 11.03* 7.11* 9.71* GLUCOSE 97 93 96 IV Drips and Rate/Dose Safety - Before each treatment: Dialysis Machine No.: [id number] RO Machine No.: [id number] Dialyzer Lot No.: [id number] RO Machine Log Sheet Completed: Yes Machine Alarm Self Test: Completed;Passed (10/25/19 112) Machine Autotest: Completed, Passed Air Foam Detector: Tested, Proper Function, pH Reading Extracorporeal Circuit Tested for Integrity: Yes Machine Conductivity: 14 Manual Conductivity: 14.1 Machine Ph: 7 Manual Ph: 7 Bleach Test (Neg): Yes Bath Temperature: 96.8 F (36 C) Tubing Lot#: [id number] Conductivity Meter Serial #: [id number] All Connections Secure?: Yes Venous Parameters Set?: Yes Arterial Parameters Set?: Yes Saline Line Double Clamped?: Yes Air Foam Detector Engaged?: Yes Machine Functioning Alarm Free? Yes Prime Given: 200ml Chlorine Testing - Before each treatment and every 4 hours: Treatment Treatment Number: 4 Time On: 4 Time Off: 1523 Treatment Goal: 2500 Weight: 188 lb 12.8 oz (85.6 kg) (10/25/19 1527) 1st check: less than 0.1 ppm at: 1030 hours 2nd check: less than 0.1 ppm at: 1330 hours 3rd check: Not Applicable (if greater than 0.1 ppm, then check every 30 minutes from secondary) Access Flows and Pressures Patient Vitals for the past 8 hrs: Blood Flow Rate (ml/min) Ultrafiltration Rate (ml/hr) Ultrafiltration Total Arterial Pressure (mmHg) Venous Pressure (mmHg) TMP Hemodialysis Conductivity DFR Comments Access Visible 10/25/19 1124 200 ml/min 630 ml/hr 0 ml -110 mmHg 20 10 14.1 700 tx started, lines secured Yes 10/25/19 1127 400 ml/min 630 ml/hr 59 ml -130 mmHg 20 10 700 blood flow increased to 400 Yes 10/25/19 1130 400 ml/min 630 ml/hr 165 ml -140 mmHg 30 20 700 pt watching tv Yes 10/25/19 1145 400 ml/min 630 ml/hr 208 ml -140 mmHg 30 20 700 no complaints, pt watching tv Yes 10/25/19 1200 400 ml/min 630 ml/hr 367 ml -140 mmHg 30 20 700 pt watching tv, no complaints Yes 10/25/19 1215 400 ml/min 630 ml/hr 513 ml -150 mmHg 40 20 700 pt on computer Yes 10/25/19 1230 400 ml/min 630 ml/hr 579 ml -150 mmHg 40 20 700 pt c/o of feeling dizzy, uf turned off Yes 10/25/19 1245 400 ml/min 720 ml/hr 579 ml -150 mmHg 40 20 700 pt feeling better,UF turned back on. MD notified Yes 10/25/19 1300 400 ml/min 720 ml/hr 746 ml -140 mmHg 40 20 700 no complaints, lines secured Yes 10/25/19 1315 400 ml/min 720 ml/hr 923 ml -140 mmHg 40 20 14 700 pt talking on phone Yes 10/25/19 1330 400 ml/min 720 ml/hr 1123 ml -150 mmHg 40 20 700 pt watching tv, no complaints Yes 10/25/19 1345 400 ml/min 720 ml/hr 1270 ml -150 mmHg 40 20 700 pt watching tv. Yes 10/25/19 1400 400 ml/min 720 ml/hr 1442 ml -150 mmHg 40 20 700 pt on computer, no complaints Yes 10/25/19 1415 400 ml/min 720 ml/hr 1596 ml -150 mmHg 40 20 700 pt on computer, no complaints Yes 10/25/19 1430 400 ml/min 720 ml/hr 1711 ml -150 mmHg 40 20 700 pt on computer, no complaints Yes 10/25/19 1445 400 ml/min 730 ml/hr 1879 ml -150 mmHg 40 20 14.1 700 pt watching tv, no complaints Yes 10/25/19 1500 400 ml/min 730 ml/hr 2075 ml -150 mmHg 40 20 700 pt watching tv, no complaints Yes 10/25/19 1515 400 ml/min 950 ml/hr 2312 ml -150 mmHg 40 20 700 pt on the phone, no signs of distress Yes 10/25/19 1524 400 ml/min 960 ml/hr 2500 ml -150 mmHg 40 20 700 treatment ended, blood returned Yes Vital Signs Patient Vitals for the past 8 hrs: BP Temp Pulse Resp SpO2 Weight Percent Weight Change 10/25/19 0900 129/78 98.7 F (37.1 C) 96 18 96 % 10/25/19 0935 96 10/25/19 1120 121/80 98.6 F (37 C) 90 18 97 % 10/25/19 1127 190 lb 0.6 oz (86.2 kg) -5.79 10/25/19 1130 (!) 110/90 88 10/25/19 1145 116/85 88 10/25/19 1200 127/82 86 10/25/19 1215 101/70 88 10/25/19 1230 (!) 82/56 85 10/25/19 1245 109/66 72 10/25/19 1300 127/76 84 10/25/19 1315 110/77 87 10/25/19 1330 126/76 87 10/25/19 1345 116/82 95 10/25/19 1400 126/70 87 10/25/19 1415 115/80 87 10/25/19 1430 127/82 92 10/25/19 1445 116/72 88 10/25/19 1500 111/76 94 10/25/19 1515 119/87 94 10/25/19 1524 118/86 92 97 % 10/25/19 1527 123/83 92 96 % 188 lb 12.8 oz (85.6 kg) -6.41 10/25/19 1609 123/80 98.1 F (36.7 C) 99 20 99 % Post-Dialysis Arterial Catheter Locking Solution: Heparin (1000units:1ml) Volume (ml): 1.4 Venous Catheter Locking Solution: Heparin (1000units:1ml) Volume (ml): 1.4 Post-Treatment Procedures: Blood returned, Catheter capped, clamped and heparinized x 2 ports Machine Disinfection Process: Acid/Vinegar Clean Rinseback Volume (ml): 300 ml Total Liters Processed (l/min): 85.3 l/min Dialyzer Clearance: Lightly streaked Duration of Treatment (minutes): 240 minutes Heparin amount administered during treatment (units): 0 units Hemodialysis Intake (ml): 500 ml Hemodialysis Output (ml): 2500 ml NET Removed (ml): 2000 ml Tolerated Treatment: Fair Patient Response to Treatment: no complaints Physician Notified?: Yes Provider Notification Provider Notification Reason for Communication: Evaluate (10/25/19 1245) Provider Name: Keila (10/25/19 124) Provider Notification: Physician (10/25/19 124) Method of Communication: Call (10/25/19 124) Response: No new orders (10/25/19 124) Notification Time: 1224 (10/25/19 124) Handoff complete and report given to Primary RN at 1530 hours. Primary RN (First Initial, Last Name, Title): Malick Husain RN Education Person Educated: Patient Knowledge Base: Minimal Barriers to Learning?: None Preferred method of Learning: Oral Topic(s): Access Care, Signs and Symptoms of Infection and Procedural Teaching Tools: Explanation Response to Education: Verbalized Understanding * Jeana Pedraza MD - 10/25/2019 7:58 AM EST [facility] Progress Note SUBJECTIVE: Glenn Snyder is a 53 y.o. male who is being followed by nephrology for BLOSSOM on CKD . Any overnight events - none Medications Scheduled Meds: sevelamer 1,600 mg Oral TID WC amLODIPine 5 mg Oral Daily metoprolol tartrate 12.5 mg Oral BID sodium chloride 20 mL Intravenous Once sodium chloride flush 3 mL Intravenous Q8H Continuous Infusions: Prn Meds : ondansetron, hydrALAZINE, heparin (porcine), heparin (porcine) Home Meds: No current facility-administered medications on file prior to encounter. No current outpatient medications on file prior to encounter. OBJECTIVE Physical BP 119/82 Pulse 99 Temp 99.5 F (37.5 C) (Temporal) Resp 20 Ht 5' 10 (1.778 m) Wt 201 lb 11.5 oz (91.5 kg) SpO2 95% BMI 28.94 kg/m 24HR INTAKE/OUTPUT: No intake or output data in the 24 hours ending 10/25/19 0758 General: AAO x 3, speaking in full sentences, no accessory muscle use. HEENT: Atraumatic, normocephalic, no throat congestion, moist mucosa. Eyes: Pupils equal, round and reactive to light, EOMI. Neck: No JVD, no thyromegaly, no lymphadenopathy. Chest: Bilateral vesicular breath sounds, no rales or wheezes. Cardiac: S1 S2 RR, no murmurs, gallops or rubs, JVP not raised. Abdomen: Soft, non-tender, no masses or organomegaly, BS audible. : No suprapubic or flank tenderness. Neuro: AAO x 3, No FND. SKIN: No rashes, good skin turgor. Data Last 3 CMP: Recent Labs 10/23/19 0359 10/24/19 0456 10/25/19 0338 NA 135 135 135 K 3.9 4.1 4.3 CL 94* 94* 95* CO2 24 31* 26 BUN 61* 28* 39* CREATININE 11.03* 7.11* 9.71* CALCIUM 8.6 8.6 8.7 Last 3 CBC: Recent Labs 10/23/19 0400 10/24/19 0455 10/25/19 0338 WBC 10.8* 9.7 11.2* RBC 3.18* 3.10* 3.24* HGB 9.5* 9.2* 9.7* HCT 27.6* 27.0* 28.3* MCV 86.6 86.9 87.3 MCH 29.7 29.6 30.0 MCHC 34.3 34.1 34.3 RDW 13.8 14.0 13.8 PLT 248 245 252 MPV 7.7 8.4 8.1 ASSESSMENT Patient Active Problem List Diagnosis Date Noted Acute renal failure (ARF) (HCC) 10/19/2019 ASSESSMENT/PLAN: 1. BLOSSOM . Pt likely has CKD at baseline. No previous Cr values to compare. CKD could be from HTN induced nephrosclerosis VS GN since the patient has h/o proteinuria /hematuria since 2000 but he never had kidney Bx and never saw trim master operator before BLOSSOM might be from CKD progression Vs RPGN .Doubt the patient has obstructive uropathy since there is no hydronephrosis by CT. CT showed b/l moderate renal atrophy UA showed 200 protein with RBC 6-11. C3C4 are wnl. Hepatitis panel negative. HIV serology is negative. CIARAN, ANCA are negative too Kidney BX was scheduled by my partner Dr. Patel to evaluate the kidneys salvageability . I doubt the kidneys are salvageable due to CT finding . Patient to have kidney bx todya Pt is likely ESRD. Pt on MWF HD schedule. HD session today Will switch HD access to TC tomorrow 2- Hyperkalemia: resolved with HD 3-high anion gap acidosis likely from CKD and BLOSSOM Resolved with HD 4- Hyperphosphatemia: P level improved from 14->5.8 Continue Phosphorus binder 5- HTN: Improved with HD Monitor BP Will continue to follow Please call if any question at [phone] JEANA PEDRAZA MD 10/25/2019 7:58 AM * Ellie Mireles RD, LD - 10/24/2019 3:43 PM EST Patient to be discharged today . Provided diet education for renal diet- 80- 90 gm pro, 2000 calorie, 2 gram potassium, [address] contact number for questions., concerns . Will follow upif not discharged. * Darell Sanches DO - 10/24/2019 11:38 AM EST Hospitalist Progress Note 10/24/2019 11:38 AM [phone]: Please page me ([phone]) for patient care issues. [phone]: Please page IMS night Hospitalist for any issues. Subjective: Admit Date: 10/19/2019 PCP: No primary care provider on file. Room#: 156/1561 Interval History: No overnight issues. Denies chest pain, sob, abdominal pain, nausea, vomiting, diarrhea, constipation, fevers, or chills. DIET RENAL; Patient Vitals for the past 96 hrs (Last 3 readings): Weight 10/23/19 2202 201 lb 11.5 oz (91.5 kg) 10/23/19 1710 198 lb 13.7 oz (90.2 kg) 10/23/19 0628 197 lb (89.4 kg) 24HR INTAKE/OUTPUT: Intake/Output Summary (Last 24 hours) at 10/24/2019 1138 Last data filed at 10/24/2019 0300 Gross per 24 hour Intake 700 ml Output 1644 ml Net -944 ml Past Medical History: History reviewed. No pertinent past medical history. Medications: sevelamer 1,600 mg Oral TID WC amLODIPine 5 mg Oral Daily metoprolol tartrate 12.5 mg Oral BID sodium chloride 20 mL Intravenous Once sodium chloride flush 3 mL Intravenous Q8H LABS: CBC: Recent Labs 10/22/19 0430 10/23/19 0400 10/24/19 0455 WBC 9.3 10.8* 9.7 RBC 3.20* 3.18* 3.10* HGB 9.4* 9.5* 9.2* HCT 27.7* 27.6* 27.0* MCV 86.7 86.6 86.9 RDW 14.2 13.8 14.0 PLT 264 248 245 BMP: Recent Labs 10/22/19 0430 10/23/19 0359 10/24/19 0456 NA 137 135 135 K 4.3 3.9 4.1 CL 95* 94* 94* CO2 28 24 31* BUN 53* 61* 28* CREATININE 8.75* 11.03* 7.11* GLUCOSE 94 97 93 CALCIUM 8.9 8.6 8.6 ANIONGAP 14 17 10 LIVER PROFILE:No results for input(s): AST, ALT, BILITOT, ALKPHOS, LABALBU, PROT in the last 72 hours. PT/INR: Recent Labs 10/24/19455 PROTIME 11.4 INR 1.1 CARDIAC ENZYMES: No results for input(s): TROPONINI in the last 72 hours. Procalcitonin: Lab Results Component Value Date PROCAL 0.74 10/19/2019 Objective: Vitals: BP 110/71 Pulse 95 Temp 99.1 F (37.3 C) (Temporal) Resp 18 Ht 5' 10 (1.778 m) Wt201 lb 11.5 oz (91.5 kg) SpO2 96% BMI 28.94 kg/m Pulse Ox: SpO2 Av % Min: 92 % Max: 97 % Supplemental O2: General appearance: No apparent distress, appears stated age and cooperative with exam HEENT: Normal cephalic, atraumatic without obvious deformity. Pupils equal, round, and reactive to light. Extra ocular muscles intact. Conjunctivae/corneas clear. Neck: Supple, with full range of motion. No jugular venous distention. Trachea midline. No lymphadenopathy. Respiratory: Normal respiratory effort. Clear to auscultation, bilaterally without Rales/Wheezes/Rhonchi. Cardiovascular: Regular rate and rhythm with normal S1/S2 without murmurs, rubs or gallops. Abdomen: Soft, non-tender, non-distended with normal bowel sounds. No rebound or guarding. Musculoskeletal: No clubbing, cyanosis or edema bilaterally. Full range of motion without deformity. Skin: Skin color, texture, turgor normal. No rashes or lesions. Neurologic: Neurovascularly intact without any focal sensory/motor deficits. Cranial nerves: II-XIIintact, grossly non-focal. Assessment 1. BLOSSOM vs progressive CKD now on HD 2. Leukocytosis-reactive>>resolved 3. Diverticulsosis 4. Possible recent angioedema-resolved 5. Normocytic anemia 6. Gram-positive bacillus 1 of 3 sets>>likely contaminate, confirmed with micro lab Plan -daily weights, I&Os, dialysis per trim master operator -renal biopsy and dialysis cath pending, trim master operator following -am labs, replace lytes prn -increase activity -DVT prophylaxis: [] Lovenox [x] Heparin [] SCDs [x] Encourage ambulation [] Already on Anticoagulation Advance Directive: Full Code Discharge planning: ok to discharge today pending renal biopsy and dialysis cath placement Darell Sanches DO Division of Hospitalist Medicine Inpatient Medical Services PAGER: [phone] * Ivett Cope RN - 10/24/2019 10:48 AM EST Microbiology called, pt has 3x blood cultures drawn on 10/19. One came back with Gram positive rods.Borqs message sent to JAMSHID Sanches regarding results * Jeana Pedraza MD - 10/24/2019 9:15 AM EST [facility] Progress Note SUBJECTIVE: Glenn Snyder is a 53 y.o. male who is being followed by nephrology for BLOSSOM on CKD . Any overnight events - none Had HD session yesteday Medications Scheduled Meds: sevelamer 1,600 mg Oral TID amLODIPine 5 mg Oral Daily metoprolol tartrate 12.5 mg Oral BID sodium chloride 20 mL Intravenous Once sodium chloride flush 3 mL Intravenous Q8H Continuous Infusions: Prn Meds : ondansetron, hydrALAZINE, heparin (porcine), heparin (porcine) Home Meds: No current facility-administered medications on file prior to encounter. No current outpatient medications on file prior to encounter. OBJECTIVE Physical BP 110/71 Pulse 95 Temp 99.1 F (37.3 C) (Temporal) Resp 18 Ht 5' 10 (1.778 m) Wt 201 lb 11.5 oz (91.5 kg) SpO2 96% BMI 28.94 kg/m 24HR INTAKE/OUTPUT: Intake/Output Summary (Last 24 hours) at 10/24/2019 0915 Last data filed at 10/24/2019 0300 Gross per 24 hour Intake 700 ml Output 1644 ml Net -944 ml General: AAO x 3, speaking in full sentences, no accessory muscle use. HEENT: Atraumatic, normocephalic, no throat congestion, moist mucosa. Eyes: Pupils equal, round and reactive to light, EOMI. Neck: No JVD, no thyromegaly, no lymphadenopathy. Chest: Bilateral vesicular breath sounds, no rales or wheezes. Cardiac: S1 S2 RR, no murmurs, gallops or rubs, JVP not raised. Abdomen: Soft, non-tender, no masses or organomegaly, BS audible. : No suprapubic or flank tenderness. Neuro: AAO x 3, No FND. SKIN: No rashes, good skin turgor. Data Last 3 CMP: Recent Labs 10/22/19 0430 10/23/19 0359 10/24/19 0456 NA 137 135 135 K 4.3 3.9 4.1 CL 95* 94* 94* CO2 28 24 31* BUN 53* 61* 28* CREATININE 8.75* 11.03* 7.11* CALCIUM 8.9 8.6 8.6 Last 3 CBC: Recent Labs 10/22/19 0430 10/23/19 0400 10/24/19 0455 WBC 9.3 10.8* 9.7 RBC 3.20* 3.18* 3.10* HGB 9.4* 9.5* 9.2* HCT 27.7* 27.6* 27.0* MCV 86.7 86.6 86.9 MCH 29.3 29.7 29.6 MCHC 33.8 34.3 34.1 RDW 14.2 13.8 14.0 PLT 264 248 245 MPV 8.0 7.7 8.4 ASSESSMENT Patient Active Problem List Diagnosis Date Noted Acute renal failure (ARF) (HCC) 10/19/2019 ASSESSMENT/PLAN: 1. BLOSSOM . Pt likely has CKD at baseline. No previous Cr values to compare. CKD could be from HTN induced nephrosclerosis VS GN since the patient has h/o proteinuria /hematuria since 2000 but he never had kidney Bx and never saw trim master operator before BLOSSOM might be from CKD progression Vs RPGN .Doubt the patient has obstructive uropathy since there is no hydronephrosis by CT. CT showed b/l moderate renal atrophy UA showed 200 protein with RBC 6-11. C3C4 are wnl. Hepatitis panel negative. HIV serology is negative. CIARAN, ANCA are negative too Kidney BX was scheduled by my partner Dr. Patel to evaluate the kidneys salvageability . I doubt the kidneys are salvageable due to CT finding Pt is likely ESRD. Pt on MWF HD schedule. Lat HD session 10/23. Next HD session tomorrow Will switch HD access to TC after the kidney Bx 2- Hyperkalemia: resolved with HD 3-high anion gap acidosis likely from CKD and BLOSSOM Resolved with HD 4- Hyperphosphatemia: P level improved from 14->5.8 Continue Phosphorus binder 5- HTN: Improved with HD Monitor BP Will continue to follow Please call if any question at [phone] JEANA PEDRAZA MD 10/24/2019 9:15 AM * Radha Foreman RN - 10/23/2019 7:21 PM EST Patient Name: Glenn Snyder Patient : 1965 Acct: [id number] Date of Admission: 10/19/2019 Room/Bed: 222/2225 Code Status: Full Code Allergies: Allergies Allergen Reactions Lisinopril Had facial swelling and tongue 24 hours after taking Diagnosis: Patient Active Problem List Diagnosis Acute renal failure (ARF) (HCC) Treatment: Hemodialysis 1:1 Priority: Routine Location: ICU Diabetic: No NPO: No Isolation Precautions: None Consent for Treatment Verified: Yes Blood Consent Verified: Not Applicable Safety Verified: Identify (I), Consent (C), Equipment (E), HepB Status (B), Orders Complete (O), Access Verified (A) and Timeliness (T) Time out performed prior to access at 1745 hours. Report Received from Primary RN at 1735 hours. Primary RN (First Initial, Last Name, Title): Román Gilliland RN Incapacitated Nurse Education Completed: Yes HBsAg ONLY: Date Drawn: October 19, 2019 Results: Negative HBsAb: Date Drawn: HBsAb not drawn not applicable, 2019 Results: Unknown Order Dialysis Bath K+ (Potassium): 2 Ca+ (Calcium): 2.5 Na+ (Sodium): 138 HCO3 (Bicarb): 35 Na+ Modeling: Not Applicable Dialyzer: [id number] Dialysate Temperature (C): 35 Blood Flow Rate (BFR): 400 Dialysate Flow Rate (DFR): 800 Treatment Treatment Number: 4 Time On: 1748 Time Off: 2153 Treatment Goal: 1L Weight: 201 lb 11.5 oz (91.5 kg) (10/23/192201) Access to be Utilized Access: Non-tunneled Catheter Location: Internal Jugular Side: Right Needle gauge: Not Applicable + Bruit/Thrill: Not Applicable First Use X-ray Verified: Yes OK to use line order: Yes Site Assessment: Signs and Symptoms of Infection/Inflammation: None If yes: Not Applicable Dressing: Dry and Intact Site Prep: Medical Aseptic Technique Dressing Changed this Treatment: No If yes, by whom: NA - not changed today Date of Last Dressing Change: October 18, [address]?: Yes Red Alcohol Caps in place?: Yes Gauze Dressing?: No Non Dialysis Use?: No Comment: Flows: Good, Patent If access problem, who was notified: Pre and Post-Assessment Patient Vitals for the past 8 hrs: Level of Consciousness Oriented X Heart Rhythm Respiratory Quality/Effort O2 Device Bilateral Breath Sounds Skin Color Skin Condition/Temp Appetite Abdomen Inspection Bowel Sounds (All Quadrants) Edema Pain Level 10/23/19 1706 0 Unlabored Appropriate for ethnicity Warm;Dry Soft None 10/23/19 1710 0 3 Regular Unlabored None (Room air) Clear Appropriate for ethnicity Warm;Dry Fair Soft Active;Present None 0 10/23/19 2202 Clear None 4 Labs Recent Labs 10/21/19 0532 10/22/19 0430 10/23/19 0400 WBC 9.8 9.3 10.8* HGB 9.7* 9.4* 9.5* HCT 27.6* 27.7* 27.6* PLT 299 264 248 Recent Labs 10/21/19 0532 10/22/19 0430 10/23/19 0359 NA 135 137 135 K 4.9 4.3 3.9 CL 94* 95* 94* CO2 25 28 24 BUN 83* 53* 61* CREATININE 11.16* 8.75* 11.03* GLUCOSE 103* 94 97 IV Drips and Rate/Dose Safety - Before each treatment: Dialysis Machine No.: [id number] Machine No.: [id number] Dialyzer Lot No.: [id number] RO Machine Log Sheet Completed: Yes Machine Alarm Self Test: Completed;Passed (10/23/191709) Machine Autotest: Completed, Passed Air Foam Detector: Tested, Proper Function, pH Reading Extracorporeal Circuit Tested for Integrity: Yes Machine Conductivity: 13.7 Manual Conductivity: 13.6 Machine Ph: 7 Manual Ph: 7 Bleach Test (Neg): Yes Bath Temperature: 95 F (35 C) Tubing Lot#: [id number] Conductivity Meter Serial #: [id number] [employer] Secure?: Yes Venous Parameters Set?: Yes Arterial Parameters Set?: Yes Saline Line Double Clamped?: Yes Air Foam Detector Engaged?: Yes Machine Functioning Alarm Free? Yes Prime Given: 200ml Chlorine Testing - Before each treatment and every 4 hours: 1st check: less than 0.1 ppm at: 1745 hours 2nd check: less than 0.1 ppm at: 2050 hours 3rd check: Not Applicable (if greater than 0.1 ppm, then check every 30 minutes from secondary) Comment, Waited for RN supervisor fertilizer for 2nd water check. Access Flows and Pressures Patient Vitals for the past 8 hrs: Blood Flow Rate (ml/min) Ultrafiltration Rate (ml/hr) Ultrafiltration Total Arterial Pressure (mmHg) Venous Pressure (mmHg) TMP Hemodialysis Conductivity DFR Comments Access Visible 10/23/191748 200 ml/min 380 ml/hr -50 mmHg 20 50 13.8 800 Treatment initiated Yes 10/23/19 1752 400 ml/min 380 ml/hr 15 ml -120 mmHg 110 40 13.8 800 BFR increased to order Yes 10/23/19 1800 400 ml/min 380 ml/hr 83 ml -130 mmHg 120 40 13.8 800 Pt stable, tolerating BFR. Family/friends in room Yes 10/23/19 1815 400 ml/min 380 ml/hr 165 ml -140 mmHg 130 40 13.8 800 Pt stable. Talking to family/ friends Yes 10/23/19 1830 400 ml/min 380 ml/hr 255 ml -140 mmHg 130 50 13.7 800 Pt stable. Talking to family/friends Yes 10/23/19 1845 400 ml/min 380 ml/hr 345 ml -140 mmHg 130 50 13.7 800 Pt stable. Talking to family/friends Yes 10/23/19 1900 400 ml/min 380 ml/hr 465 ml -140 mmHg 130 50 13.7 800 Pt stable. Looking at phone. Denies needs Yes 10/23/19 1915 400 ml/min 380 ml/hr 547 ml -140 mmHg 130 40 13.8 800 Pt stable. Eating ice chips. Family/ friends in room Yes 10/23/19 193 400 ml/min 380 ml/hr 654 ml -140 mmHg 140 40 13.7 800 Pt stable, talking to friends/family in room Yes 10/23/191932 Bicarb changed. Manual conductivity 13.4, pH 7.0 Yes 10/23/191944 400 ml/min 380 ml/hr 737 ml -150 mmHg 130 50 13.7 800 Pt stable. Looking at phone, eating ice chips. Yes 10/23/191948 Acid changed. Manual conductivity 13.5, pH 7.0 Yes 10/23/191999 400 ml/min 380 ml/hr 819 ml -150 mmHg 130 50 13.7 800 Pt looking at phone. No complaints Yes 10/23/192014 400 ml/min 370 ml/hr 906 ml -150 mmHg 140 40 13.7 800 Pt stable. Denies needs. Familyin room Yes 10/23/19 2030 400 ml/min 370 ml/hr 1001 ml -150 mmHg 140 50 13.7 800 Pt stable. Family in room. Yes 10/23/192044 400 ml/min 370 ml/hr 1093 ml -150 mmHg 130 50 13.7 800 Pt stable. Talking to family in room Yes 10/23/19 2100 400 ml/min 370 ml/hr 1187 ml -160 mmHg 140 50 13.7 800 Pt stable, denies needs. talking to family Yes 10/23/192109 Bicarb changed. Manual conductivity 13.4, pH 7 Yes 10/23/192114 400 ml/min 370 ml/hr 1275 ml -160 mmHg 140 40 13.7 800 Pt stable, looking at laptop Yes 10/23/192119 Pt states he is lightheaded. UF turned off Yes 10/23/192122 200ml bolus Normal Saline given Yes 10/23/192129 400 ml/min 380 ml/hr 1294 ml -150 mmHg 130 40 13.7 800 Pt states he is still lightheaded Yes 10/23/192139 Notified nurse of low BP. Pt states he is still lightheaded but no worse than before.Pt wants to finish dialysis Yes 10/23/192144 400 ml/min 380 ml/hr 1294 ml -150 mmHg 130 40 13.7 800 Pt states he feels somewhat lightheaded Yes 10/23/19 2154 1294 ml Tx completed. Yes Vital Signs Patient Vitals for the past 8 hrs: BP Temp Pulse Resp SpO2 Weight Weight Method Percent Weight Change 10/23/19 1710 127/77 98 F (36.7 C) 89 20 97 % 198 lb 13.7 oz (90.2 kg) Bed scale 0.94 10/23/19 1749 126/82 88 10/23/19 1752 115/72 88 10/23/19 1800 135/85 89 10/23/19 1815 (!) 142/82 86 10/23/19 1830 (!) 144/90 85 10/23/19 1845 136/84 84 10/23/19 1900 137/84 81 10/23/19 191 129/72 85 10/23/19 1930 (!) 155/85 80 10/23/191944 (!) 132/99 73 10/23/191999 (!) 132/94 82 10/23/192014 (!) 160/90 82 10/23/192029 (!) 145/81 84 10/23/192044 (!) 144/87 84 10/23/192099 (!) 157/90 94 10/23/192114 112/64 88 10/23/192119 (!) 82/52 10/23/192122 (!) 82/52 10/23/192129 (!) 110/54 76 10/23/192139 (!) 74/42 77 10/23/192144 (!) 85/47 79 10/23/192153 (!) 89/43 80 10/23/192201 (!) 113/55 97.9 F (36.6 C) 80 16 95 % 201 lb 11.5 oz (91.5 kg) Bed scale 1.44 10/23/192242 128/68 102 10/23/192243 128/68 102 Post-Dialysis Arterial Catheter Locking Solution: Heparin (1000units:1ml) Volume (ml): 1.4 Venous Catheter Locking Solution: Heparin (1000units:1ml) Volume (ml): 1.4 Post-Treatment Procedures: Blood returned, Catheter capped, clamped and heparinized x 2 ports Machine Disinfection Process: Exterior Machine Disinfection Rinseback Volume (ml): 300 ml Total Liters Processed (l/min): 90.2 l/min Dialyzer Clearance: Lightly streaked Duration of Treatment (minutes): 240 minutes Heparin amount administered during treatment (units): 0 units Hemodialysis Intake (ml): 700 ml Hemodialysis Output (ml): 1294 ml NET Removed (ml): 594 ml Tolerated Treatment: Fair Patient Response to Treatment: Pt tolerted treatment fair. Physician Notified?: No Provider Notification Handoff complete and report given to Primary RN at 2235 hours. Primary RN (First Initial, Last Name, Title): Bell Aguilar RN Education Person Educated: Patient Knowledge Base: Minimal Barriers to Learning?: None Preferred method of Learning: Oral Topic(s): Access Care, Signs and Symptoms of Infection and Procedural Teaching Tools: Explanation Response to Education: Verbalized Understanding * Cindy Patel MD - 10/23/2019 4:54 PM EST [facility] Progress Note SUBJECTIVE: Glenn Snyder is a 53 y.o. male who is being followed by nephrology for BLOSSOM . Any overnight events - none Medications Scheduled Meds: sevelamer 1,600 mg Oral TID WC amLODIPine 5 mg Oral Daily metoprolol tartrate 12.5 mg Oral BID sodium chloride 20 mL Intravenous Once sodium chloride flush 3 mL Intravenous Q8H Continuous Infusions: Prn Meds : ondansetron, hydrALAZINE, heparin (porcine), heparin (porcine) Home Meds: No current facility-administered medications on file prior to encounter. No current outpatient medications on file prior to encounter. OBJECTIVE Physical BP (!) 137/96 Pulse 78 Temp 98.4 F (36.9 C) (Oral) Resp 18 Ht 5' 10 (1.778 m) Wt 197 lb (89.4 kg) SpO2 96% BMI 28.27 kg/m 24HR INTAKE/OUTPUT: Intake/Output Summary (Last 24 hours) at 10/23/2019 1654 Last data filed at 10/22/2019 1656 Gross per 24 hour Intake Output 150 ml Net -150 ml General: AAO x 3, speaking in full sentences, no accessory muscle use. HEENT: Atraumatic, normocephalic, no throat congestion, moist mucosa. Eyes: Pupils equal, round and reactive to light, EOMI. Neck: No JVD, no thyromegaly, no lymphadenopathy. Chest: Bilateral vesicular breath sounds, no rales or wheezes. Cardiac: S1 S2 RR, no murmurs, gallops or rubs, JVP not raised. Abdomen: Soft, non-tender, no masses or organomegaly, BS audible. : No suprapubic or flank tenderness. Neuro: AAO x 3, No FND. SKIN: No rashes, good skin turgor. Data Last 3 CMP: Recent Labs 10/21/19 0532 10/22/19 0430 10/23/19 0359 NA 135 137 135 K 4.9 4.3 3.9 CL 94* 95* 94* CO2 25 28 24 BUN 83* 53* 61* CREATININE 11.16* 8.75* 11.03* CALCIUM 8.7 8.9 8.6 Last 3 CBC: Recent Labs 10/21/19 0532 10/22/19 0430 10/23/19 0400 WBC 9.8 9.3 10.8* RBC 3.25* 3.20* 3.18* HGB 9.7* 9.4* 9.5* HCT 27.6* 27.7* 27.6* MCV 84.8 86.7 86.6 MCH 30.0 29.3 29.7 MCHC 35.3 33.8 34.3 RDW 14.8* 14.2 13.8 PLT 299 264 248 MPV 7.8 8.0 7.7 ASSESSMENT Patient Active Problem List Diagnosis Date Noted Acute renal failure (ARF) ([facility]) 10/19/2019 ASSESSMENT/PLAN: 1. Renal failure, most likely chronic. Discussed with patient in detail. 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 Currently not working. 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 Apparently he was admitted at a hospital in [place] about 5 years ago and had cystoscopy and was told that its negative. No prior renal function that I ca n see recently. Did not see any doctor due to lack of insurance. Serologies are negative. Renal US shows echogenic but decent size kidneys. Most likely he has IgA nephropathy with coexisting HTN related kidney disease which has worsened over the years. I explained that a biopsy would help determineif any salvageable tissue is present (with the information that we have it appears low probability but its never zero unless we see the biopsy), prognosis of renal failure. He has agreed to proceed with it. Explained about possible complications including bleeding. Agreeable. Will order PT PTT and kidney biopsy for am. Other issues are lack of insurance for which he is working with . All questions answered. Total time spent - 20 min answering questions. Hold heparin in anticipation of biopsy. 2. HTN. meds adjusted Line needs to be changed to tunneled when ready for dc Cindy Patel MD 10/23/2019 4:54 PM * Darell Sanches DO - 10/23/2019 2:02 PM EST Hospitalist Progress Note 10/23/2019 5:02 PM [phone]: Please page me ([phone]) for patient care issues. [phone]: Please page [facility] night Hospitalist for any issues. Subjective: Admit Date: 10/19/2019 PCP: No primary care provider on file. Room#: 222/2224 Interval History: No overnight issues. Denies chest pain, sob, abdominal pain, nausea, vomiting, diarrhea, constipation, fevers, or chills. DIET RENAL; Patient Vitals for the past 96 hrs (Last 3 readings): Weight 10/23/19 0628 197 lb (89.4 kg) 10/22/19 0515 196 lb 3.2 oz (89 kg) 10/21/19 1300 181 lb (82.1 kg) 24HR INTAKE/OUTPUT: No intake or output data in the 24 hours ending 10/23/19 1702 Past Medical History: History reviewed. No pertinent past medical history. Medications: sevelamer 1,600 mg Oral TID WC amLODIPine 5 mg Oral Daily metoprolol tartrate 12.5 mg Oral BID sodium chloride 20 mL Intravenous Once sodium chloride flush 3 mL Intravenous Q8H LABS: CBC: Recent Labs 10/21/19 0532 10/22/19 0430 10/23/19 0400 WBC 9.8 9.3 10.8* RBC 3.25* 3.20* 3.18* HGB 9.7* 9.4* 9.5* HCT 27.6* 27.7* 27.6* MCV 84.8 86.7 86.6 RDW 14.8* 14.2 13.8 PLT 299 264 248 BMP: Recent Labs 10/21/19 0532 10/22/19 0430 10/23/19 0359 NA 135 137 135 K 4.9 4.3 3.9 CL 94* 95* 94* CO2 25 28 24 BUN 83* 53* 61* CREATININE 11.16* 8.75* 11.03* GLUCOSE 103* 94 97 CALCIUM 8.7 8.9 8.6 ANIONGAP 16 14 17 LIVER PROFILE:No results for input(s): AST, ALT, BILITOT, ALKPHOS, LABALBU, PROT in the last 72 hours. PT/INR: No results for input(s): PROTIME, INR in the last 72 hours. CARDIAC ENZYMES: No results for input(s): TROPONINI in the last 72 hours. Procalcitonin: Lab Results Component Value Date PROCAL 0.74 10/19/2019 Objective: Vitals: BP (!) 137/96 Pulse 83 Temp 98.4 F (36.9 C) (Oral) Resp 18 Ht 5' 10 (1.778 m) Wt197 lb (89.4 kg) SpO2 96% BMI 28.27 kg/m Pulse Ox: SpO2 Av.3 % Min: 96 % Max: 98 % Supplemental O2: General appearance: No apparent distress, appears stated age and cooperative with exam HEENT: Normal cephalic, atraumatic without obvious deformity. Pupils equal, round, and reactive to light. Extra ocular muscles intact. Conjunctivae/corneas clear. Neck: Supple, with full range of motion. No jugular venous distention. Trachea midline. No lymphadenopathy. Respiratory: Normal respiratory effort. Clear to auscultation, bilaterally without Rales/Wheezes/Rhonchi. Cardiovascular: Regular rate and rhythm with normal S1/S2 without murmurs, rubs or gallops. Abdomen: Soft, non-tender, non-distended with normal bowel sounds. No rebound or guarding. Musculoskeletal: No clubbing, cyanosis or edema bilaterally. Full range of motion without deformity. Skin: Skin color, texture, turgor normal. No rashes or lesions. Neurologic: Neurovascularly intact without any focal sensory/motor deficits. Cranial nerves: II-XIIintact, grossly non-focal. Assessment 1. BLOSSOM vs progressive CKD now on HD 2. Leukocytosis-reactive 3. Diverticulsosis 4. Possible recent angioedema-resolved 5. Normocytic anemia Plan -daily weights, I&Os, dialysis per trim master operator -renal biopsy and temp dialysis cath pending, trim master operator to arrabge -am labs, replace lytes prn -increase activity -DVT prophylaxis: [] Lovenox [x] Heparin [] SCDs [x] Encourage ambulation [] Already on Anticoagulation Advance Directive: Full Code Discharge planning: likely discharge in next 24 hours Darell Sanches DO Division of Hospitalist Medicine Inpatient Medical Services PAGER: [phone] * Darell Sanches DO - 10/22/2019 2:17 PM EST Hospitalist Progress Note 10/22/2019 2:17 PM [phone]: Please page me ([phone]) for patient care issues. [phone]: Please page [facility] night Hospitalist for any issues. Subjective: Admit Date: 10/19/2019 PCP: No primary care provider on file. Room#: 222/2225 Interval History: No overnight issues. Denies chest pain, sob, abdominal pain, nausea, vomiting, diarrhea, constipation, fevers, or chills. DIET RENAL; Patient Vitals for the past 96 hrs (Last 3 readings): Weight 10/22/19 0515 196 lb 3.2 oz (89 kg) 10/21/19 1300 181 lb (82.1 kg) 10/21/19 0940 196 lb 10.4 oz (89.2 kg) 24HR INTAKE/OUTPUT: No intake or output data in the 24 hours ending 10/22/19 1417 Past Medical History: History reviewed. No pertinent past medical history. Medications: sevelamer 1,600 mg Oral TID WC amLODIPine 5 mg Oral Daily metoprolol tartrate 12.5 mg Oral BID sodium chloride 20 mL Intravenous Once sodium chloride flush 3 mL Intravenous Q8H LABS: CBC: Recent Labs 10/20/19 0408 10/20/197 10/21/19 0532 10/22/19 0430 WBC 9.0 -- -- 9.8 9.3 RBC 2.24* -- -- 3.25* 3.20* HGB 6.6* < > 9.0* 9.7* 9.4* HCT 19.3* < > 25.2* 27.6* 27.7* MCV 86.2 -- -- 84.8 86.7 RDW 13.4 -- -- 14.8* 14.2 PLT 267 -- -- 299 264 < > = values in this interval not displayed. BMP: Recent Labs 10/20/19 18410/21/19 0532 10/22/19 0430 NA 135 135 137 K 4.0 4.9 4.3 CL 94* 94* 95* CO2 26 25 28 BUN 76* 83* 53* CREATININE 9.40* 11.16* 8.75* GLUCOSE 110* 103* 94 CALCIUM 8.4 8.7 8.9 ANIONGAP 15 16 14 LIVER PROFILE:No results for input(s): AST, ALT, BILITOT, ALKPHOS, LABALBU, PROT in the last 72 hours. PT/INR: No results for input(s): PROTIME, INR in the last 72 hours. CARDIAC ENZYMES: No results for input(s): TROPONINI in the last 72 hours. Procalcitonin: Lab Results Component Value Date PROCAL 0.74 10/19/2019 Objective: Vitals: BP 138/67 Pulse 95 Temp 98.7 F (37.1 C) (Oral) Resp 20 Ht 5' 10 (1.778 m) Wt 196lb 3.2 oz (89 kg) SpO2 98% BMI 28.15 kg/m Pulse Ox: SpO2 Av % Min: 98 % Max: 98 % Supplemental O2: General appearance: No apparent distress, appears stated age and cooperative with exam HEENT: Normal cephalic, atraumatic without obvious deformity. Pupils equal, round, and reactive to light. Extra ocular muscles intact. Conjunctivae/corneas clear. Neck: Supple, with full range of motion. No jugular venous distention. Trachea midline. No lymphadenopathy. Respiratory: Normal respiratory effort. Clear to auscultation, bilaterally without Rales/Wheezes/Rhonchi. Cardiovascular: Regular rate and rhythm with normal S1/S2 without murmurs, rubs or gallops. Abdomen: Soft, non-tender, non-distended with normal bowel sounds. No rebound or guarding. Musculoskeletal: No clubbing, cyanosis or edema bilaterally. Full range of motion without deformity. Skin: Skin color, texture, turgor normal. No rashes or lesions. Neurologic: Neurovascularly intact without any focal sensory/motor deficits. Cranial nerves: II-XIIintact, grossly non-focal. Assessment 1. BLOSSOM vs progressive CKD now on HD 2. Leukocytosis-resolved 3. Diverticulsosis 4. Possible recent angioedema-resolved 5. Normocytic anemia Plan -daily weights, I&Os, dialysis per trim master operator -discussed with patient and he is willing to have the renal bx done. Will notify trim master operator -am labs, replace lytes prn -increase activity -DVT prophylaxis: [] Lovenox [x] Heparin [] SCDs [x] Encourage ambulation [] Already on Anticoagulation Advance Directive: Full Code Discharge planning: likely discharge in next 1-2 days after renal biopsy Darell Sanches DO Division of Hospitalist Medicine Inpatient Medical Services PAGER: [phone] * Randolph Euceda MD - 10/22/2019 12:46 PM EST [facility] [address] [place] [address] Progress Note Subjective: Patient seen and examined today. We are following this patient for No c/o no cp/sob Scheduled Meds: amLODIPine 5 mg Oral Daily metoprolol tartrate 12.5 mg Oral BID sodium chloride 20 mL Intravenous Once sodium chloride flush 3 mL Intravenous Q8H Continuous Infusions: PRN Meds:ondansetron, hydrALAZINE, heparin (porcine), heparin (porcine) Vitals: BP 138/67 Pulse 95 Temp 98.7 F (37.1 C) (Oral) Resp 20 Ht 5' 10 (1.778 m) Wt 196 lb 3.2 oz (89 kg) SpO2 98% BMI 28.15 kg/m BLOOD PRESSURE RANGE: Systolic (24hrs), Av , Min:110 , Max:159 ; Diastolic (24hrs), Av, Min:67, Max:95 24HR INTAKE/OUTPUT: Intake/Output Summary (Last 24 hours) at 10/22/2019 1246 Last data filed at 10/21/2019 1300 Gross per 24 hour Intake 700 ml Output 585 ml Net 115 ml Physical exam: GENERAL well developed , no distress ENMT lips pink oral mucosa moist EYES sclerae white PERRL LUNGS clear to auscultation no wheezing no crackles respirations are even and unlaboured CARDIAC RRR S1 S2 no rubs, murmurs or gallops ABDOMEN soft nontender BS present in all four quadrants EXTREMITIES no edema no clubbing no skin discoloration no deformities NEURO grossly normal cognition, motor function.Sensation is grossly intact.Cranial nerves II-XII intact HEME no cervical or axillary adenopathy no petechiae Data: Labs: Recent Labs 10/20/19 0408 10/20/19 1847 10/21/19 0532 10/22/19 0430 WBC 9.0 -- -- 9.8 9.3 HGB 6.6* < > 9.0* 9.7* 9.4* HCT 19.3* < > 25.2* 27.6* 27.7* MCV 86.2 -- -- 84.8 86.7 PLT 267 -- -- 299 264 < > = values in this interval not displayed. Recent Labs 10/20/19 0408 10/20/19 1847 10/21/19 0532 10/22/19 0430 NA 136 135 135 137 K 4.7 4.0 4.9 4.3 CL 95* 94* 94* 95* CO2 GLUCOSE 102* 110* 103* 94 PHOS 12.3* -- 9.2* 8.7* MG 1.8 -- 1.9 2.0 BUN 123* 76* 83* 53* CREATININE 13.53* 9.40* 11.16* 8.75* Ionized Calcium: Lab Results Component Value Date IONCA 4.20 10/22/2019 Magnesium: Lab Results Component Value Date MG 2.0 10/22/2019 Phosphorus: Lab Results Component Value Date PHOS 8.7 10/22/2019 U/A: Lab Results Component Value Date COLORU Colorless 10/19/2019 WBCUA 6-10 10/19/2019 RBCUA 6-10 10/19/2019 BACTERIA Few 10/19/2019 LEUKOCYTESUR Negative 10/19/2019 UROBILINOGEN Normal 10/19/2019 BILIRUBINUR Negative 10/19/2019 GLUCOSEU 200 10/19/2019 AMORPHOUS Few 10/19/2019 Urine Culture: No components found for: CURINE Blood Culture: No components found for: CBLOOD, CFUNGUSBL Blood Culture from Central Line: No components found for: CBLOODLN Urinalysis: Reviewed if applicable Imaging:reviewed if applicable Assessment / Plan: Patient Active Problem List Diagnosis Acute renal failure (ARF) (HCC) BLOSSOM unclear etiology vs progressive CKD with now ESRD Hyperphosphatemia HTN HD tomorrow orders entered F/u rest of serologies reviewed renal US D/w patient at length about renal biopsy and he will let us know tomorrow. If the patient agrees will schedule for renal bx Avoid nephrotoxins F/u renal artery doppler start binders bp better continue norvasc Randolph Euceda M.D 10/22/2019 12:46 PM * Earlene Irving MD - 10/21/2019 10:34 PM EST Hospitalist Progress Note 10/21/2019 10:35 PM [phone]: Please page me ([phone]) for patient care issues. [phone]: Please page [facility] night Hospitalist for any issues. Subjective: Admit Date: 10/19/2019 PCP: No primary care provider on file. Hospital Day: 3 Interval History: Seen today in the room. Was admitted 2 days ago for diarrhea,emesis,face and tongue swelling and found to have blossom and anemia He checked his blood pressure at home and found it to be high and took some old lisinopril he had from 4 years ago. After this he continued to feel bad did have the lip and tongue swelling. He since been admitted to the ICU vascular access has been obtained and he is status post 3 dialysis treatments He also had some sores underneath his tongue where he has implants these are all improving. Overallhe feels much better no specific complaints today he is breathing better he has dialysis access in his right upper chest is not causing him any difficulties Discussion held about his kidney failure blood pressure and anemia Medications: Current Facility-Administered Medications: amLODIPine (NORVASC) tablet 5 mg, 5 mg, Oral, Daily, Randolph Euceda MD, 5 mg at 10/21/19 1506 ondansetron (ZOFRAN) injection 4 mg, 4 mg, Intravenous, Q6H PRN, Brett Encarnacion MD, 4 mg at 10/21/19 1713 0.9 % sodium chloride bolus, 20 mL, Intravenous, Once, Delon Jessica, [employer] SALES [employer]ER hydrALAZINE (APRESOLINE) injection 10 mg, 10 mg, Intravenous, Q4H PRN, Brett Encarnacion MD [COMPLETED] Saline lock IV, , , Continuous AND sodium chloride flush 0.9 % injection 3 mL, 3 mL, Intravenous, Q8H, Callie Nieves, DO, 3 mL at 10/21/19 1323 heparin (porcine) injection 1,400 Units, 1,400 Units, Intracatheter, PRN, Jeana Pedraza MD, 1,400 Units at 10/21/19 1257 heparin (porcine) injection 1,400 Units, 1,400 Units, Intracatheter, PRN, Jeana Pedraza MD, 1,400 Units at 10/21/19 1256 Objective: BP Min: 150/85 Max: 172/91 Temp Av.2 F (36.8 C) Min: 97.8 F (36.6 C) Max: 98.6 F (37 C) Pulse Av.5 Min: 95 Max: 96 Resp Av.8 Min: 16 Max: 18 SpO2 Av.5 % Min: 97 % Max: 98 % Weight Av lb 13.2 oz (85.7 kg) Min: 181 lb (82.1 kg) Max: 196 lb 10.4 oz (89.2 kg) Temp (48hrs), Av.2 F (36.8 C), Min:97.7 F (36.5 C), Max:98.6 F (37 C) Patient Vitals for the past 96 hrs (Last 3 readings): Weight 10/21/19 1300 181 lb (82.1 kg) 10/21/19 0940 196 lb 10.4 oz (89.2 kg) 10/19/19 1245 220 lb 0.3 oz (99.8 kg) Intake/Output Summary (Last 24 hours) at 10/21/2019 2235 Last data filed at 10/21/2019 1300 Gross per 24 hour Intake 700 ml Output 585 ml Net 115 ml IV Intake: P.O.: 240 mL Payne: No flowsheet data found. 10/20 1501 - 10/21 1500 In: 1200 Out: 2535 [Urine:250] Vitals: BP (!) 159/91 Pulse 95 Temp 98.6 F (37 C) (Oral) Resp 18 Ht 5' 10 (1.778 m) Wt 181 lb (82.1 kg) SpO2 97% BMI 25.97 kg/m Pulse Ox: SpO2 Av.5 % Min: 97 % Max: 98 % Supplemental O2: General appearance: White male sitting up in bed answering questions well HEENT: Patient places his tongue to the roof of his mouth. Looking underneath his tongue with a flashlight I do not appreciate any significant lip or tongue swelling now there is some healing lesionsunderneath his tongue Neck: Supple, with full range of motion. No jugular venous distention. Trachea midline. No lymphadenopathy. Respiratory: Normal respiratory effort. Clear to auscultation, bilaterally without Rales/Wheezes/Rhonchi. Cardiovascular: Regular rate and rhythm with normal S1/S2 without murmurs, rubs or gallops. Abdomen: Soft, non-tender, non-distended with normal bowel sounds. No rebound or guarding. Musculoskeletal: No clubbing, cyanosis or edema bilaterally. Full range of motion without deformity. Skin: Skin color, texture, turgor normal. No rashes or lesions. Neurologic: Neurovascularly intact without any focal sensory/motor deficits. Cranial nerves: II-XIIintact, grossly non-focal. LABS: Recent Abx Admin No antibiotic orders with administrations found. Assessment/Plan 1. Admitted with newly found BLOSSOM status post dialysis treatment x3 now contributing factors could havebeen CHANTAL inhibitor along with hypertension and generalized no recent medical care he states due to lack of insurance Nephrology continuing to manage he states he is making more and more urine 2.anemia Anemia labs will be requested in the morning. He denies any bleeding he should discuss with nephrology about erythropoietin replacement if no other cause of his anemia is found Patient also is behind and needs to follow-up with primary care for all his health maintenance needs Lab Results Component Value Date HGB 9.7 10/21/2019 HGB 9.0 10/20/2019 HGB 6.7 10/20/2019 HGB 6.6 10/20/2019 HGB 9.1 10/19/2019 3.need to see opthalmalogy due poor vision out of right eye over th past few weeks 4.htn Current medications Amlodipine 5mg daily Hydralazine 10mg prn Will change iv to po lopressor 5.renal duplex pending 6.Tongue and lip swelling after lisinipril at home - added this to allergy list DIET RENAL; Discharge planning: replace lytes prn -increase activity -DVT prophylaxis: ? Pharmocologic prophylaxis on hold to due risk of bleeding or procedure ? DOAC ? Lovenox x Heparin ? SCDs ? Encourage ambulation ? Already on full dose anticoagulation EARLENE IRVING MD Division of Hospitalist Medicine Inpatient Medical Services PAGER: [phone] * Randolph Euceda MD - 10/21/2019 1:44 PM EST [facility] [address] [place] [id number] Progress Note Subjective: Patient seen and examined today. We are following this patient for No c/o no cp/sob Scheduled Meds: sodium chloride 20 mL Intravenous Once sodium chloride flush 3 mL Intravenous Q8H Continuous Infusions: PRN Meds:hydrALAZINE, heparin (porcine), heparin (porcine) Vitals: BP (!) 160/96 Pulse 95 Temp 97.8 F (36.6 C) Resp 18 Ht 5' 10 (1.778 m) Wt 196 lb 10.4 oz(89.2 kg) SpO2 97% BMI 28.22 kg/m BLOOD PRESSURE RANGE: Systolic (24hrs), Av , Min:126 , Max:169 ; Diastolic (24hrs), Av, Min:76, Max:96 24HR INTAKE/OUTPUT: Intake/Output Summary (Last 24 hours) at 10/21/2019 1345 Last data filed at 10/20/2019 1900 Gross per 24 hour Intake 500 ml Output 1950 ml Net -1450 ml Physical exam: GENERAL well developed , no distress ENMT lips pink oral mucosa moist EYES sclerae white PERRL LUNGS clear to auscultation no wheezing no crackles respirations are even and unlaboured CARDIAC RRR S1 S2 no rubs, murmurs or gallops ABDOMEN soft nontender BS present in all four quadrants EXTREMITIES no edema no clubbing no skin discoloration no deformities NEURO grossly normal cognition, motor function.Sensation is grossly intact.Cranial nerves II-XII intact HEME no cervical or axillary adenopathy no petechiae Data: Labs: Recent Labs 10/19/19 1529 10/20/19 0408 10/20/19 0529 10/20/19 1847 10/21/19 0532 WBC 8.3 9.0 -- -- 9.8 HGB 9.1* 6.6* 6.7* 9.0* 9.7* HCT 26.9* 19.3* 19.6* 25.2* 27.6* MCV 86.5 86.2 -- -- 84.8 PLT 246 267 -- -- 299 Recent Labs 10/19/19 0649 10/20/19 0408 10/20/19 1847 10/21/19 0532 NA 136 < > 136 135 135 K 6.6* < > 4.7 4.0 4.9 CL 106 < > 95* 94* 94* CO2 8* < > 24 26 25 GLUCOSE 93 < > 102* 110* 103* PHOS 14.8* -- 12.3* -- 9.2* MG 2.1 -- 1.8 -- 1.9 BUN 179* < > 123* 76* 83* CREATININE 17.04* < > 13.53* 9.40* 11.16* < > = values in this interval not displayed. Ionized Calcium: Lab Results Component Value Date IONCA 4.10 10/21/2019 Magnesium: Lab Results Component Value Date MG 1.9 10/21/2019 Phosphorus: Lab Results Component Value Date PHOS 9.2 10/21/2019 U/A: Lab Results Component Value Date COLORU Colorless 10/19/2019 WBCUA 6-10 10/19/2019 RBCUA 6-10 10/19/2019 BACTERIA Few 10/19/2019 LEUKOCYTESUR Negative 10/19/2019 UROBILINOGEN Normal 10/19/2019 BILIRUBINUR Negative 10/19/2019 GLUCOSEU 200 10/19/2019 AMORPHOUS Few 10/19/2019 Urine Culture: No components found for: CURINE Blood Culture: No components found for: CBLOOD, CFUNGUSBL Blood Culture from Central Line: No components found for: CBLOODLN Urinalysis: Reviewed if applicable Imaging:reviewed if applicable Assessment / Plan: Patient Active Problem List Diagnosis Acute renal failure (ARF) (HCC) BLOSSOM unclear etiology vs progressive CKD with now ESRD Hyperphosphatemia HTN HD Wednesday F/u rest of serologies ordered antigbm not done Check renal US Depending on clinical course and w/u will consider renal biopsy Avoid nephrotoxins F/u renal artery doppler done today Will start binders once the patient is resuming po intake persistent high bp start norvasc po Randolph Euceda M.D 10/21/2019 1:45 PM * Christelle Wolfe I RN - 10/21/2019 10:23 AM EST Patient Name: Glenn Snyder Patient : 1965 Acct: [id number] Date of Admission: 10/19/2019 Room/Bed: [facility]/2225 Code Status: Full Code Allergies: No Known Allergies Diagnosis: Patient Active Problem List Diagnosis Acute renal failure (ARF) (HCC) Treatment: Hemodialysis 1:1 Priority: Routine Location: ICU 5 Diabetic: No NPO: No Isolation Precautions: None Consent for Treatment Verified: Yes Blood Consent Verified: NA Safety Verified: Iceboat Time out performed prior to access at 0940 Report Received from Primary RN at 0900 Primary RN (First Initial, Last Name, Title): Walter Quiroz RN Incapacitated Nurse Education Completed: Yes HBsAg ONLY: Date Drawn: 10/19/2019 Results: Negative HBsAb: Date Drawn: 10/19/2019 Results: Unknown Order Dialysis Bath K+ (Potassium): 2 Ca+ (Calcium): 2.5 Na+ (Sodium): 138 HCO3 (Bicarb): 35 Na+ Modeling: NA Dialyzer: [id number] Dialysate Temperature (C): 36 Blood Flow Rate (BFR): 300 Dialysate Flow Rate (DFR): 600 Treatment Treatment Number: 3 Time On: 0945 Time Off: 1245 Treatment Goal: 2L Weight: 181 lb (82.1 kg) (10/21/19 1300) Access to be Utilized Access: Non tunneled Location: Internal Jugular Side: Right Needle gauge: NA + Bruit/Thrill: NA First Use X-ray Verified: Yes OK to use line order: Yes Site Assessment: Signs and Symptoms of Infection/Inflammation: None If yes: NA Dressing: and Intact Site Prep: Medical Aseptic Technique Dressing Changed this Treatment: No Date of Last Dressing Change: 10/19/[address]?: Yes Red Alcohol Caps in place?: Yes Gauze Dressing?: NO Opaque Non Dialysis Use?: No Comment: Flows: Good and Patent If access problem, who was notified: Pre and Post-Assessment Patient Vitals for the past 8 hrs: Level of Consciousness Oriented X Heart Rhythm Respiratory Quality/Effort O2 Device Bilateral Breath Sounds Skin Color Skin Condition/Temp Abdomen Inspection Bowel Sounds (All Quadrants) Edema Pain Level 10/21/19 0752 0 None (Room air) 10/21/19 0800 0 Unlabored Appropriate for ethnicity Dry;Warm Soft None 0 10/21/19 0940 0 3 Regular Unlabored None (Room air) Expiratory wheezes Starke Dry;Warm Distended;Rounded;Soft Audible Generalized 0 10/21/19 1300 0 3 Regular Unlabored None (Room air) Clear;Diminished Starke Dry;Warm Distended;Rounded;Soft Active Generalized 0 Labs Recent Labs 10/19/19 1529 10/20/19 0408 10/20/19 0529 10/20/19 1847 10/21/19 0532 WBC 8.3 9.0 -- -- 9.8 HGB 9.1* 6.6* 6.7* 9.0* 9.7* HCT 26.9* 19.3* 19.6* 25.2* 27.6* PLT 246 267 -- -- 299 Recent Labs 10/20/19 0408 10/20/19 1847 10/21/19 0532 NA 136 135 135 K 4.7 4.0 4.9 CL 95* 94* 94* CO2 25 BUN 123* 76* 83* CREATININE 13.53* 9.40* 11.16* GLUCOSE 102* 110* 103* IV Drips and Rate/Dose Safety - Before each treatment: Dialysis Machine No.: [id number] RO Machine No.: [id number] Dialyzer Lot No.: [id number] RO Machine Log Sheet Completed: Yes Machine Alarm Self Test: Completed;Passed (10/21/19 0940) Machine Autotest: Completed, Passed Air Foam Detector: Tested, Proper Function, pH Reading Extracorporeal Circuit Tested for Integrity: Yes Machine Conductivity: 13.7 Manual Conductivity: 13.8 Machine Ph: 7 Manual Ph: 7 Bleach Test (Neg): Yes Bath Temperature: 96.8 F (36 C) Tubing Lot#: [id number] Conductivity Meter Serial #: [id number] All Connections Secure?: Yes Venous Parameters Set?: Yes Arterial Parameters Set?: Yes Saline Line Double Clamped?: Yes Air Foam Detector Engaged?: Yes Machine Functioning Alarm Free? Yes Prime Given: 250 ml Chlorine Testing - Before each treatment and every 4 hours: 1st check: less than 0.1 ppm at: 0930 2nd check: less than 0.1 ppm at: 1230 3rd check: NA (if greater than 0.1 ppm, then check every 30 minutes from secondary) Access Flows and Pressures Patient Vitals for the past 8 hrs: Blood Flow Rate (ml/min) Ultrafiltration Rate (ml/hr) Ultrafiltration Total Arterial Pressure (mmHg) Venous Pressure (mmHg) TMP Hemodialysis Conductivity DFR Comments Access Visible 10/21/19 0945 300 ml/min 830 ml/hr 0 ml -80 mmHg 210 120 13.7 600 tx initiated w/o incidence Yes 10/21/19 1000 300 ml/min 830 ml/hr 195 ml -90 mmHg 110 130 13.7 600 awake Yes 10/21/19 1015 300 ml/min 830 ml/hr 400 ml -110 mmHg 120 130 13.7 600 friend at bedside Yes 10/21/19 1033 300 ml/min 830 ml/hr 585 ml -100 mmHg 120 130 13.7 800 UFG off 200 NS blous given pt symptomatic for dizziness anxiety tingling sensation BP low stated feeling better after fluid bolus and no fluid removal at this time Dr Duran to be notified Yes 10/21/19 1045 300 ml/min 0 ml/hr 585 ml -100 mmHg 120 120 13.7 600 feeling better BP improved Dr Euceda notified and order received Yes 10/21/19 1100 300 ml/min 0 ml/hr 585 ml -90 mmHg 120 110 13.7 600 feeling better Yes 10/21/19 1115 300 ml/min 0 ml/hr 585 ml -100 mmHg 120 110 13.7 600 denies c/o Yes 10/21/19 1130 300 ml/min 0 ml/hr 585 ml -100 mmHg 120 110 13.7 600 awake Yes 10/21/19 1145 3020 ml/min 0 ml/hr 585 ml -90 mmHg 120 110 13.7 600 awake Yes 10/21/19 1200 300 ml/min 20 ml/hr 585 ml -90 mmHg 120 110 13.7 600 awake Yes 10/21/19 1215 300 ml/min 0 ml/hr 585 ml -90 mmHg 120 110 13.7 600 awake Yes 10/21/19 1230 300 ml/min 0 ml/hr 585 ml -90 mmHg 110 110 13.7 600 awake denies c/o Yes 10/21/19 1245 300 ml/min 0 ml/hr 585 ml -90 mmHg 110 110 13.7 600 Tx completed vss Yes Vital Signs Patient Vitals for the past 8 hrs: BP BP - Standing Temp Pulse Resp SpO2 Weight Weight Method Percent Weight Change 10/21/19 0752 (!) 150/85 98.1 F (36.7 C) 95 16 97 % 10/21/19 0940 (!) 157/89 97.8 F (36.6 C) 18 196 lb 10.4 oz (89.2 kg) -10.62 10/21/19 0945 (!) 172/91 18 10/21/19 1000 18 10/21/19 1015 127/82 18 10/21/19 1030 18 10/21/19 1033 18 10/21/19 1045 18 10/21/19 1100 18 10/21/19 1115 (!) 168/95 18 10/21/19 1130 (!) 163/81 18 10/21/19 1145 18 10/21/19 1200 18 10/21/19 1215 (!) 160/96 18 10/21/19 1230 (!) 152/82 18 10/21/19 1245 18 10/21/19 1300 98.5 F (36.9 C) 18 181 lb (82.1 kg) Bed scale -7.96 Post-Dialysis Arterial Catheter Locking Solution: Heparin (1000 units: 1 ml) Volume 1.4 ml Venous Catheter Locking Solution: Heparin (1000 units: 1 ml) Volume 1.4 ml Post-Treatment Procedures: Blood returned, Catheter capped, clamped and heparinized x 2 ports Machine Disinfection Process: Exterior Machine Disinfection Rinseback Volume (ml): 250 ml Total Liters Processed (l/min): 51.5 l/min Dialyzer Clearance: Lightly streaked Duration of Treatment (minutes): 180 minutes Heparin amount administered during treatment (units): 0 units Hemodialysis Intake (ml): 700 ml Hemodialysis Output (ml): 585 ml NET Removed (ml): 0 ml Tolerated Treatment: Good Patient Response to Treatment: tolerated well other than hypotension toward end of HD. Patient asymptomatic after blood returned. Nausea gone Physician Notified?: No Provider Notification Handoff complete and report given to Primary RN at 1255 Primary RN (First Initial, Last Name, Title): Walter Quiroz RN Education Person Educated: Patient Knowledge Base: Minimal Barriers to Learning?:None Preferred method of Learning: Oral Topic(s): Procedure S&S of Hypotension Teaching Tools: Explanation Response to Education: Requires Follow up * Sushila White RN - 10/20/2019 6:11 PM EST Patient Name: Glenn Snyder Patient : 1965 Acct: [id number] Date of Admission: 10/19/2019 Room/Bed: [address] [place] [address] Code Status: Full Code Allergies: No Known Allergies Diagnosis: Patient Active Problem List Diagnosis Acute renal failure (ARF) (HCC) Treatment: Hemodialysis 1:1 Priority: Routine Location: ICU Diabetic: No NPO: No Isolation Precautions: Dialysis Consent for Treatment Verified: Yes Blood Consent Verified: Yes Safety Verified: Identify (I), Consent (C), Equipment (E), HepB Status (B), Orders Complete (O), Access Verified (A) and Timeliness (T) Time out performed prior to access at 1520 hours. Report Received from Primary RN at 1520 hours. Primary RN (First Initial, Last Name, Title): Kylee Finley RN Incapacitated Nurse Education Completed: Yes HBsAg ONLY: Date Drawn: October 19, 2019 Results: Negative HBsAb: Date Drawn: October 19, 2019 Results: Unknown Order Dialysis Bath K+ (Potassium): 2 Ca+ (Calcium): 2.5 Na+ (Sodium): 138 HCO3 (Bicarb): 35 Na+ Modeling: Not Applicable Dialyzer: [id number] Dialysate Temperature (C): 36 Blood Flow Rate (BFR): 250 Dialysate Flow Rate (DFR): 500 Treatment Treatment Number: 2 Time On: 1530 Time Off: 1800 Treatment Goal: 2 liters Weight: 220 lb 0.3 oz (99.8 kg) (10/19/19 1245) Access to be Utilized Access: Tunneled Catheter Location: Internal Jugular Side: Right Needle gauge: Not Applicable + Bruit/Thrill: Not Applicable First Use X-ray Verified: Yes OK to use line order: Yes Site Assessment: Signs and Symptoms of Infection/Inflammation: None If yes: Not Applicable Dressing: Dry and Intact Site Prep: Medical Aseptic Technique Dressing Changed this Treatment: No If yes, by whom: NA - not changed today Date of Last Dressing Change: October 18, [address]?: Yes Red Alcohol Caps in place?: Yes Gauze Dressing?: Yes Non Dialysis Use?: No Comment: Flows: Good, Patent If access problem, who was notified: Pre and Post-Assessment Patient Vitals for the past 8 hrs: Level of Consciousness Oriented X Heart Rhythm Respiratory Quality/Effort O2 Device Bilateral Breath Sounds Skin Color Skin Condition/Temp Appetite Abdomen Inspection Bowel Sounds (All Quadrants) Edema Pain Level 10/20/19 1319 0 Unlabored Appropriate for ethnicity Warm Rounded;Soft None 10/20/19 1321 0 10/20/19 1525 0 x3 Regular Unlabored None (Room air) Clear Starke Dry;Warm Good Soft Active None 0 10/20/19 1800 0 Labs Recent Labs 10/19/19 0545 10/19/19 1529 10/20/19 0408 10/20/19 0529 WBC 14.1* 8.3 9.0 -- HGB 7.8* 9.1* 6.6* 6.7* HCT 23.2* 26.9* 19.3* 19.6* PLT 293 246 267 -- Recent Labs 10/19/19 0649 10/19/19 1707 10/20/19 0408 NA 136 134* 136 K 6.6* 4.4 4.7 CL 106 96* 95* CO2 8* 18* 24 BUN 179* 118* 123* CREATININE 17.04* 12.26* 13.53* GLUCOSE 93 109* 102* IV Drips and Rate/Dose Safety - Before each treatment: Dialysis Machine No.: [id number] RO Machine No.: [id number] Dialyzer Lot No.: [id number] RO Machine Log Sheet Completed: Yes Machine Alarm Self Test: Completed;Passed (10/20/191524) Machine Autotest: Completed, Passed Air Foam Detector: Tested, Proper Function, pH Reading Extracorporeal Circuit Tested for Integrity: Yes Machine Conductivity: 13.6 Manual Conductivity: 13.6 Machine Ph: 7 Manual Ph: 7 Bleach Test (Neg): Yes Bath Temperature: 96.8 F (36 C) Tubing Lot#: [id number] Conductivity Meter Serial #: [id number] All Connections Secure?: Yes Venous Parameters Set?: Yes Arterial Parameters Set?: Yes Saline Line Double Clamped?: Yes Air Foam Detector Engaged?: Yes Machine Functioning Alarm Free? Yes Prime Given: 200ml Chlorine Testing - Before each treatment and every 4 hours: 1st check: less than 0.1 ppm at: 1520 hours 2nd check: less than 0.1 ppm at: 1730 hours 3rd check: Not Applicable (if greater than 0.1 ppm, then check every 30 minutes from secondary) Access Flows and Pressures Patient Vitals for the past 8 hrs: Blood Flow Rate (ml/min) Ultrafiltration Rate (ml/hr) Arterial Pressure (mmHg) Venous Pressure (mmHg) TMP Hemodialysis Conductivity DFR Comments Access Visible 10/20/19 1530 150 ml/min 500 ml/hr -60 mmHg 60 60 13.6 500 vs stable Yes 10/20/19 1545 250 ml/min 500 ml/hr -100 mmHg 100 60 13.6 500 visiting with family Yes 10/20/19 1600 250 ml/min 1000 ml/hr -100 mmHg 100 60 13.6 500 vs stable Yes 10/20/19 1615 250 ml/min 1000 ml/hr -100 mmHg 100 60 13.6 500 vs stable Yes 10/20/19 1630 250 ml/min 1000 ml/hr -100 mmHg 100 60 13.6 500 vs stable Yes 10/20/19 1645 250 ml/min 1000 ml/hr -100 mmHg 100 60 13.6 500 vs stable Yes 10/20/19 1700 250 ml/min 1000 ml/hr -100 mmHg 120 60 13.6 500 vs stable Yes 10/20/19 1715 250 ml/min 800 ml/hr -120 mmHg 120 60 13.6 500 vs stable Yes 10/20/19 1730 250 ml/min 800 ml/hr -120 mmHg 120 60 13.6 500 vs stable Yes 10/20/19 1745 250 ml/min 800 ml/hr -120 mmHg 120 60 13.6 500 vs stable Yes 10/20/19 1752 250 ml/min 800 ml/hr -120 mmHg 120 60 13.6 500 patient hypotensive/ Very nauseated due to low SBP. HD discontinues and blood returned to patient Yes Vital Signs Patient Vitals for the past 8 hrs: BP Temp Pulse Resp SpO2 10/20/19 1101 (!) 158/92 84 13 10/20/19 1137 (!) 166/93 97.7 F (36.5 C) 98 % 10/20/19 1525 136/76 98 F (36.7 C) 98 % 10/20/19 1530 (!) 156/76 10/20/19 1545 (!) 169/93 10/20/19 1745 126/76 10/20/19 1800 98 F (36.7 C) 96 % Post-Dialysis Arterial Catheter Locking Solution: Heparin (1000units:1ml) Volume (ml): 1.4 Venous Catheter Locking Solution: Heparin (1000units:1ml) Volume (ml): 1.4 Post-Treatment Procedures: Blood returned, Catheter capped, clamped and heparinized x 2 ports Machine Disinfection Process: Exterior Machine Disinfection Rinseback Volume (ml): 200 ml Total Liters Processed (l/min): 35.2 l/min Dialyzer Clearance: Lightly streaked Duration of Treatment (minutes): 150 minutes Hemodialysis Intake (ml): 500 ml Hemodialysis Output (ml): 1700 ml NET Removed (ml): 1200 ml Tolerated Treatment: Good Patient Response to Treatment: tolerated well other than hypotension toward end of HD. Patient asymptomatic after blood returned. Nausea gone Physician Notified?: No Provider Notification Handoff complete and report given to Primary RN at 1800 hours. Primary RN (First Initial, Last Name, Title): Kylee Finley RN Education Person Educated: Patient Knowledge Base: Minimal Barriers to Learning?: None Preferred method of Learning: Oral Topic(s): Procedural Teaching Tools: Video, Handout, Demonstration and Explanation Response to Education: Verbalized Understanding, Return Demonstration, Teach Back and Requires Follow-up * Jeana Pedraza MD - 10/20/2019 2:42 PM EST [facility] Progress Note SUBJECTIVE: Glenn Snyder is a 53 y.o. male who is being followed by nephrology for BLOSSOM on CKD . Any overnight events - none Medications Scheduled Meds: sodium chloride 20 mL Intravenous Once sodium chloride flush 3 mL Intravenous Q8H Continuous Infusions: Prn Meds : hydrALAZINE, heparin (porcine), heparin (porcine) Home Meds: No current facility-administered medications on file prior to encounter. No current outpatient medications on file prior to encounter. OBJECTIVE Physical BP (!) 166/93 Pulse 84 Temp 97.7 F (36.5 C) (Oral) Resp 13 Ht 5' 10 (1.778 m) Wt 220 lb 0.3 oz (99.8 kg) SpO2 98% BMI 31.57 kg/m 24HR INTAKE/OUTPUT: Intake/Output Summary (Last 24 hours) at 10/20/2019 1443 Last data filed at 10/20/2019 1319 Gross per 24 hour Intake 3198.67 ml Output 2600 ml Net 598.67 ml General: AAO x 3, speaking in full sentences, no accessory muscle use. HEENT: Atraumatic, normocephalic, no throat congestion, moist mucosa. Eyes: Pupils equal, round and reactive to light, EOMI. Neck: No JVD, no thyromegaly, no lymphadenopathy. Chest: Bilateral vesicular breath sounds, no rales or wheezes. Cardiac: S1 S2 RR, no murmurs, gallops or rubs, JVP not raised. Abdomen: Soft, non-tender, no masses or organomegaly, BS audible. : No suprapubic or flank tenderness. Neuro: AAO x 3, No FND. SKIN: No rashes, good skin turgor. Data Last 3 CMP: Recent Labs 10/19/19 0545 10/19/19 0649 10/19/19 1707 10/20/19 0408 NA 136 136 134* 136 K 7.3* 6.6* 4.4 4.7 CL 104 106 96* 95* CO2 10* 8* 18* 24 BUN 179* 179* 118* 123* CREATININE 17.95* 17.04* 12.26* 13.53* CALCIUM 8.1* 8.0* 8.4 7.9* PROT 7.9 7.1 -- -- LABALBU 4.3 3.9 -- -- BILITOT 0.3 0.5 -- -- ALKPHOS 68 58 -- -- AST 38 41 -- -- ALT 31 27 -- -- Last 3 CBC: Recent Labs 10/19/19 0545 10/19/19 1529 10/20/19 0408 10/20/19 0529 WBC 14.1* 8.3 9.0 -- RBC 2.66* 3.11* 2.24* -- HGB 7.8* 9.1* 6.6* 6.7* HCT 23.2* 26.9* 19.3* 19.6* MCV 87.4 86.5 86.2 -- MCH 29.4 29.2 29.4 -- MCHC 33.6 33.8 34.1 -- RDW 13.4 13.1 13.4 -- PLT 293 246 267 -- MPV 7.6 8.0 7.4 -- ASSESSMENT Patient Active Problem List Diagnosis Date Noted Acute renal failure (ARF) (HCC) 10/19/2019 ASSESSMENT/PLAN: 1. BLOSSOM . Pt likely has CKD at baseline. No previous Cr values to compare. CKD could be from HTN induced nephrosclerosis VS GN since the patient has h/o proteinuria /hematuria since 2000 but he never had kidney Bx and never saw trim master operator before BLOSSOM might be from CKD progression Vs RPGN .Doubt the patient has obstructive uropathy since there is no hydronephrosis by CT UA showed 200 protein with RBC 6-11. C3C4 are wnl. Hepatitis panel negative. HIV serology is negative. CIARAN, ANCA are still pending Doubt the patient will be benefit from renal biopsy since CT showing moderately atrophic kidneys HD started on 10/19 due to hyperkalemia, metabolic acidosis and uremia. Will arrange for the 2nd HD session today with UF goal of 2 L If no recovery of kidney function by next week -> switch HD access to tunneled cath Continue accurate I/O and daily BMP 2- Hyperkalemia: resolved with HD 3-high anion gap acidosis likely from CKD and BLOSSOM Resolved with HD 4- Hyperphosphatemia: P Improved slightly from 14->12 with HD Continue HD. Will start Phosphorus binder 5- HTN: Improved with HD Monitor BP Will continue to follow Please call if any question at [phone] JEANA PEDRAZA MD 10/20/2019 2:43 PM * GiuseppeDorcas APRN - CNP - 10/20/2019 12:03 PM EST Patient transferred from ICU to [facility] service * Brett Encarnacion MD - 10/20/2019 11:10 AM EST Critical Care Progress Note 10/20/2019 11:10 AM Subjective: Admit Date: 10/19/2019 PCP: No primary care provider on file. Interval History: Feels improved this AM. No events, BP improved following HD. Diet: DIET RENAL; Medications: Scheduled Meds: sodium chloride 20 mL Intravenous Once sodium chloride flush 3 mL Intravenous Q8H Continuous Infusions: Objective: Vitals: Temp (24hrs), Av.3 F (36.8 C), Min:98 F (36.7 C), Max:99 F (37.2 C) BP (!) 158/92 Pulse 84 Temp 98 F (36.7 C) (Oral) Resp 13 Ht 5' 10 (1.778 m) Wt 220 lb 0.3 oz (99.8 kg) SpO2 97% BMI 31.57 kg/m I/O: 10/19 0701 - 10/20 0700 In: 2305 [P.O.:240; I.V.:1565] Out: 2250 [Urine:750] CVP: Invasive Lines: vascath#1 Physical Exam General Appearance: [x]WDWN []Obese []Cachectic []Thin []ill Skin: Temperature [x]Warm []Cool / Rash []Yes [x]No / Tattoo(s) []Yes []No Heent: Pupils round and react [x]Yes []No Sclera []Icteric [x]Non-Icteric Conjunctiva []Injected [x]Non-Injected / Pinnae [x]Normal []Other/ Dentitian [][place] Teeth []Dentures Oral Mucosa [x]Starke [x]Moist []Dry/ Oral ETT []Present [x]Absent Neck: Trachea midline [x]Yes []No/ Thyromegaly []Yes []No/ Crepitus []Present [x]Absent /Jvd []Present []Absent Lungs: [x]Clear []Crackles []Wheezes [][place]hon[place] / Respiratory effort []Labored [x]Non-Labored Heart: [x]RRR []Irregularly Irregular []murmur present []murmur absent/ Peripheral Edema [x]Absent []Present Abdomen: [x]Soft Bowel Sounds []Present []Absent []Diminished []Hyperactive []Hypoactive []Tender []Non-Tender []Distended [x]Non-distended / Hernia []Present []Absent / Organomegaly [x]Absent []Present/ []Scar Extremities: Cyanosis []Present [x]Absent/ GUAN ([x]RUE [x]RLE [x]LUE [x]LLE) Neurologic: KAKTOVIK []Yes [x]No Corneal reflexes []Present []Absent / Plantar reflexes []Up []Down []Absent / Withdraws to tactile [x]Yes []No/ Follows Commands [x]Yes []No []Unresponsive to verbal Psych: Alert [x]yes []no Oriented []x0 []x1 []x2 []x3 / Affect []Normal []Flat []Aggitated []Calm []Sedated [x]NAD BMP: Recent Labs 10/19/19 0649 10/19/19 1707 10/20/19 0408 NA 136 134* 136 K 6.6* 4.4 4.7 CL 106 96* 95* CO2 8* 18* 24 BUN 179* 118* 123* CREATININE 17.04* 12.26* 13.53* GLUCOSE 93 109* 102* . Ionized Calcium: Lab Results Component Value Date IONCA 3.80 10/20/2019 Hepatic: Recent Labs 10/19/19 0545 10/19/19 0649 AST 38 41 ALT 31 27 BILITOT 0.3 0.5 ALKPHOS 68 58 Troponin: Recent Labs 10/19/19 0649 TROPONINI 0.075* Lactate: No results found for: LACTA ABG: Recent Labs 10/20/19 0408 PH 7.41 CBC: Recent Labs 10/19/19 1529 10/20/19 0408 10/20/19 0529 WBC 8.3 9.0 -- HGB 9.1* 6.6* 6.7* PLT 246 267 -- PROCALCITONIN: Recent Labs 10/19/19 1529 PROCAL 0.74* LIPIDS: No results for input(s): CHOL, HDL in the last 72 hours. Invalid input(s): LDLCALCU UA: Recent Labs 10/19/19 0838 COLORU Colorless WBCUA 6-10 RBCUA 6-10 BACTERIA Few LEUKOCYTESUR Negative UROBILINOGEN Normal BILIRUBINUR Negative GLUCOSEU 200 AMORPHOUS Few Films: CXR portable: Results for orders placed during the hospital encounter of 10/19/19 XR CHEST PORTABLE Narrative Patient Name: GLENN SNYDRE ---Diagnostic Radiology--- Exam Date/Time 10/19/2019 12:11:06 EST Exam CR Chest Portable Ordering Physician MD ENCARNACION MATTHEW Accession Number [id number] CPT4 Codes 69900 () Reason For Exam line placement/vascath Report Portable chest 10/19/2019: Clinical Information: Line placement. Findings: A single AP portable view of the chest was obtained at 1203 hours. No prior studies for comparison. A right jugular line is present with the tip in the region of the superior vena cava. No pneumothorax is identified. The trachea is midline. The heart is not enlarged. No focal areas of consolidation or volume loss are seen. There are no pleural effusions. The pulmonary vasculature may be at most mildly congested. The visualized bony structures are intact. Report Dictated on --- Final --- Dictating Physician: MD WILLIAMSON RISA Signed Date and Time: 10/19/2019 12:55 pm Signed by: MD WILLIAMSON RISA Transcribed Date and Time: 10/19/2019 12:56 A: 1. BLOSSOM 2. Leukocytosis: unclear if active oral infection? 3. High AG metabolic acidosis 4. Diverticulsosis 5. Possible recent angioedema: appears resolve, recently took ACEi 6. Normocytic anemia P: 1. WBC normalized without abx, procal low particularly given renal dz. Defer abx. 2. S/P PRBC overnight. Repeat H/H after HD. No sign of GI bleeding. 3. Renal arterial duplex requested. 4. PRN hydralazine. Will likely need oral HTN regimen. Would avoid ACEi. 5. Likely start heparin prophy tomorrow. 6. Ok for telemetry. Prophylaxis: Stress ulcer: [] PPI Agent [] H2RA [] Sucralfate [] Other: VTE: [] Enoxaparin [] SC Heparin [] SCD * Ellie Mireles, NIKKY, LD - 10/20/2019 11:00 AM EST Nutrition Assessment Type and Reason for Visit: Initial, Positive Nutrition Screen(new hd- BLOSSOM, htn urgency ,angioedema) Nutrition Recommendations: 1) suggest to continue renal diet as tolerated 2) suggest phos binders- renal following 3)? Gi consult- rectal bleeding 4)educate as needed/appropriate 5)Monitor labs, status, intake to reassess. Follow up weekly Nutrition Assessment: 53yoM presents with oral swelling and inflammation. Presented to the ER to get this evaluated and was found to have clear evidence of renal failure. On review, pt does note decreased urine output for days to weeks. He has felt He has also noted oral swelling and bleeding. He did take his sisters lisinopril a few days ago. The swelling has largely resolved on its own, though he has some oozing on his lower palate.dyspneic when ambulatingknown history of HTN which he has nottreated.(normacytic anemia, had rectal bleeding on adm) Malnutrition Assessment: Malnutrition Status: At risk for malnutrition Context: Acute illness or injury Findings of the 6 clinical characteristics of malnutrition (Minimum of 2 out of 6 clinical characteristics is required to make the diagnosis of moderate or severe Protein Calorie Malnutrition based on AND/ASPEN Guidelines): 1. Energy Intake-Less than or equal to 50% of estimated energy requirement, (unknown - few days- vague - ) 2. Weight Loss-Unable to assess, 3. Fat Loss-Unable to assess, 4. Muscle Loss- , 5. Fluid Accumulation-No significant fluid accumulation, 6. Electronic Console Display Operator Strength-Not measured Nutrition Risk Level: High Nutrient Needs: Estimated Daily Total Kcal: [id number] Estimated Daily Protein (g): 60-90 Estimated Daily Total Fluid (ml/day): per md Nutrition Diagnosis: Problem: Altered nutrition-related lab values, Predicted suboptimal energy intake, Increased nutrient needs Etiology: related to Renal dysfunction ? Signs and symptoms: as evidenced by Other (Comment), Known losses from dialysis, Lab values(rectal bleeding) Objective Information: Nutrition-Focused Physical Findings: i/o+273 cc, no edema,tolerated <50%last pm- made an assist,getting transfused, bun 123, creat 13.53,, phos 12.3,ionized ca 3.8,pct.74, very weak Wound Type: None(sore in tongue) Current Nutrition Therapies: Oral Diet Orders: Renal Oral Diet intake: 26-50% Oral Nutrition Supplement (ONS) Orders: None ONS intake: Anthropometric Measures: Ht: 5' 10 (177.8 cm) Current Body Wt: 220 lb (99.8 kg) Admission Body Wt: Usual Body Wt: (na) % Weight Change: , na [place] Body Wt: 166 lb (75.3 kg), % [place] Body 132 Adjusted Body Wt: , body weight adjusted for BMI Classification: BMI 30.0 - 34.9 Obese Class I(31.6) Nutrition Interventions: Continue current diet Continued Inpatient Monitoring, Education not appropriate at this time, Education Needed Nutrition Evaluation: Evaluation: Goals set Goals: patient will receive ,tolerate adequate nutrition with safe [place]- labs will trend towardbaseline- meet needs for hd Monitoring: Meal Intake, Skin Integrity, Diet Tolerance, I&O, Weight, Pertinent Labs, Nausea orVomiting, Patient/Family Education, Monitor Hemodynamic Status, Monitor Bowel Function Contact Number: [phone] * Blane Lei RN - 10/19/2019 1:47 PM EST Patient Name: Glenn Snyder Patient : 1965 Acct: [id number] Date of Admission: 10/19/2019 Room/Bed: 5 Code Status: No Order Allergies: No Known Allergies Diagnosis: Patient Active Problem List Diagnosis Acute renal failure (ARF) (HCC) Treatment: Hemodialysis 1:1 Priority: Routine Location: ICU Diabetic: No NPO: Yes Isolation Precautions: Dialysis Consent for Treatment Verified: Yes Blood Consent Verified: Not Applicable Safety Verified: Identify (I), Consent (C), Equipment (E), HepB Status (B), Orders Complete (O), Access Verified (A) and Timeliness (T) Time out performed prior to access at 1250 hours. Report Received from Primary RN at 1210 hours. Primary RN (First Initial, Last Name, Title): Nadja Mckeon RN Incapacitated Nurse Education Completed: Yes HBsAg ONLY: Date Drawn: October 19, 2019 Results: Unknown HBsAb: Date Drawn: October 19, 2019 Results: Unknown Order Dialysis Bath K+ (Potassium): (1k for 1hour then 2k for the last hour) Ca+ (Calcium): 2.5 Na+ (Sodium): 138 HCO3 (Bicarb): 40 Na+ Modeling: Not Applicable Dialyzer: [id number] Dialysate Temperature (C): 36 Blood Flow Rate (BFR): 200 Dialysate Flow Rate (DFR): 500 Treatment Treatment Number: 1 Time On: 1258 Time Off: 1458 Treatment Goal: 2L Weight: 220 lb 0.3 oz (99.8 kg) (10/19/19 1245) Access to be Utilized Access: Non-tunneled Catheter Location: Internal Jugular Side: Right Needle gauge: Not Applicable + Bruit/Thrill: Not Applicable First Use X-ray Verified: Yes OK to use line order: Yes Site Assessment: Signs and Symptoms of Infection/Inflammation: None If yes: Not Applicable Dressing: Dry and Intact Site Prep: Medical Aseptic Technique Dressing Changed this Treatment: Yes If yes, by whom: Special Procedures Date of Last Dressing Change: October 19, [address]?: Yes Red Alcohol Caps in place?: Yes Gauze Dressing?: No Non Dialysis Use?: No Comment: Flows: Good, Patent If access problem, who was notified: Pre and Post-Assessment Patient Vitals for the past 8 hrs: Level of Consciousness Oriented X Heart Rhythm Respiratory Quality/Effort O2 Device Bilateral Breath Sounds Skin Color Skin Condition/Temp Abdomen Inspection Bowel Sounds (All Quadrants) Edema Pain Level 10/19/19 1050 0 Unlabored Appropriate for ethnicity;Pale Dry;Warm Rounded;Soft None 0 10/19/19 1245 0 3 Regular Unlabored None (Room air) Clear Appropriate for ethnicity Cool Soft Active None 10/19/19 1517 Clear None 0 Labs Recent Labs 10/19/19 0545 WBC 14.1* HGB 7.8* HCT 23.2* PLT 293 Recent Labs 10/19/19 0545 10/19/19 0649 NA 136 136 K 7.3* 6.6* CL 104 106 CO2 10* 8* BUN 179* 179* CREATININE 17.95* 17.04* GLUCOSE 101* 93 IV Drips and Rate/Dose IV infusion builder 100 mL/hr at 10/19/19 1202 Safety - Before each treatment: Dialysis Machine No.: [id number] RO Machine No.: [id number] Dialyzer Lot No.: [id number] RO Machine Log Sheet Completed: Yes Machine Alarm Self Test: Completed;Passed (10/19/19 1245) Machine Autotest: Completed, Passed Air Foam Detector: Proper Function, Tested, pH Reading Extracorporeal Circuit Tested for Integrity: Yes Machine Conductivity: 13.8 Manual Conductivity: 13.7 Machine Ph: 7 Manual Ph: 7 Bleach Test (Neg): Yes Bath Temperature: 96.8 F (36 C) Tubing Lot#: [id number] Conductivity Meter Serial #: [id number] [employer] Secure?: Yes Venous Parameters Set?: Yes Arterial Parameters Set?: Yes Saline Line Double Clamped?: Yes Air Foam Detector Engaged?: Yes Machine Functioning Alarm Free? Yes Prime Given: 200ml Chlorine Testing - Before each treatment and every 4 hours: 1st check: less than 0.1 ppm at: 1240 hours 2nd check: less than 0.1 ppm at: NA only a 2 hour tx 3rd check: Not Applicable (if greater than 0.1 ppm, then check every 30 minutes from secondary) Access Flows and Pressures Patient Vitals for the past 8 hrs: Blood Flow Rate (ml/min) Ultrafiltration Rate (ml/hr) Ultrafiltration Total Arterial Pressure (mmHg) Venous Pressure (mmHg) TMP Hemodialysis Conductivity DFR Comments Access Visible 10/19/19 1258 200 ml/min 1250 ml/hr -50 mmHg 40 80 13.8 500 tx started Yes 10/19/19 1315 200 ml/min 1250 ml/hr 380 ml -70 mmHg 40 80 500 family at bedside Yes 10/19/19 1330 200 ml/min 1250 ml/hr 816 ml -70 mmHg 40 80 500 stable Yes 10/19/19 1345 200 ml/min 1250 ml/hr 957 ml -70 mmHg 50 80 500 Yes 10/19/19 1400 200 ml/min 1250 ml/hr 1258 ml -60 mmHg 40 110 500 K+ bath changed to 2k per dr masterson 10/19/19 1412 200 ml/min 1305 ml -70 mmHg 50 80 500 UF Goal decreased due to pt feeling lightheadedand sudden BP dropped Yes 10/19/19 1416 200 ml/min 280 ml/hr -70 mmHg 50 80 500 restless Yes 10/19/19 1430 200 ml/min 340 ml/hr -50 mmHg 40 80 500 stable Yes 10/19/19 1445 200 ml/min 340 ml/hr 1447 ml -50 mmHg 80 80 500 stable Yes 10/19/19 1458 1500 ml tx completed Yes Vital Signs Patient Vitals for the past 8 hrs: BP Temp Pulse SpO2 Weight Weight Method Percent Weight Change 10/19/19 0846 (!) 190/177 105 98 % 10/19/19 0903 (!) 189/119 102 99 % 10/19/19 0905 (!) 180/115 10/19/19 0916 (!) 195/114 92 98 % 10/19/19 0931 (!) 195/123 99 98 % 10/19/19 1050 96 10/19/19 1245 98.1 F (36.7 C) 220 lb 0.3 oz (99.8 kg) Bed scale 0.01 10/19/19 1258 (!) 184/100 10/19/19 1345 (!) 153/86 10/19/19 1412 (!) 109/54 10/19/19 1416 95/61 10/19/19 1458 (!) 98/48 10/19/19 1517 98.4 F (36.9 C) Post-Dialysis Arterial Catheter Locking Solution: Heparin (1000units:1ml) Volume (ml): 1.4 Venous Catheter Locking Solution: Heparin (1000units:1ml) Volume (ml): 1.4 Post-Treatment Procedures: Blood returned, Catheter capped, clamped and heparinized x 2 ports Machine Disinfection Process: Exterior Machine Disinfection, Bleach, Acid/Vinegar Clean Rinseback Volume (ml): 300 ml Total Liters Processed (l/min): 23.5 l/min Dialyzer Clearance: Clear Duration of Treatment (minutes): 120 minutes Hemodialysis Intake (ml): 500 ml Hemodialysis Output (ml): 1500 ml NET Removed (ml): 1000 ml Tolerated Treatment: Fair Patient Response to Treatment: well Physician Notified?: No Provider Notification Handoff complete and report given to Primary RN at 1510 hours. Primary RN (First Initial, Last Name, Title): Nadja Mckeon RN Education Person Educated: Patient Knowledge Base: Substantial Barriers to Learning?: None Preferred method of Learning: Oral Topic(s): Access Care, Signs and Symptoms of Infection, Fluid Management, Procedural, Medications, Treatment Options, Potassium and Diet Teaching Tools: Demonstration and Explanation Response to Education: Verbalized Understanding documented in this encounterSUMTeamStreamz Work Phone: [phone] Hospital course Narrative* Myron Darell, DO - 10/27/2019 11:23 AM EST Hospitalist Discharge Summary Glenn Snyder : 1965 Admit date: 10/19/2019 Discharge date: 10/27/2019 Admitting Physician: Brett Encarnacion MD Primary Care Physician: No primary care provider on file. Visit Status: Admission Code Status: Full Code Discharge Diagnoses: 1. BLOSSOM vs progressive CKD now on HD 2. Leukocytosis-reactive>>resolved 3. Diverticulsosis 4. Possible recent angioedema-resolved 5. Normocytic anemia 6. Gram-positive bacillus 1 of 3 sets>>likely contaminate, confirmed with micro lab Procedures: renal biopsy, dialysis Hospital Course: 53yoM presents with oral swelling and inflammation. Found to have acute renal failure. Also likely had angioedema due to recently taking his sister's Lisinopril few days prior to presentation. Admitted to ICU, seen by trim master operator and HD initiated. Stabilized and transferred out ofICU. Underwent renal bx and path pending as of today's discharge. See medication adjustments below in med rec.The patient is discharged in improved and stable condition. Consults: IP CONSULT TO NEPHROLOGY IP CONSULT TO SOCIAL WORK Discharge Instructions: Diet: DIET RENAL; Activity: as tolerated Recommended Outpatient Tests: repeat BMP and CBC in 1 week Disposition: Patient discharged in stable condition to Home. Greater than 30 minutes spent discharging the patient and coming up with patient discharge plan. Vitals: BP 121/78 Pulse 88 Temp 98.9 F (37.2 C) (Temporal) Resp 14 Ht 5' 10 (1.778 m) Wt188 lb 12.8 oz (85.6 kg) SpO2 98% BMI 27.09 kg/m Pulse Ox: SpO2 Av.2 % Min: 93 % Max: 98 % Supplemental O2: General appearance: No apparent distress, appears stated age and cooperative with exam HEENT: Normal cephalic, atraumatic without obvious deformity. Pupils equal, round, and reactive to light. Extra ocular muscles intact. Conjunctivae/corneas clear. Neck: Supple, with full range of motion. No jugular venous distention. Trachea midline. No lymphadenopathy. Respiratory: Normal respiratory effort. Clear to auscultation, bilaterally without Rales/Wheezes/Rhonchi. Cardiovascular: Regular rate and rhythm with normal S1/S2 without murmurs, rubs or gallops. Abdomen: Soft, non-tender, non-distended with normal bowel sounds. No rebound or guarding. Musculoskeletal: No clubbing, cyanosis or edema bilaterally. Full range of motion without deformity. Skin: Skin color, texture, turgor normal. No rashes or lesions. Neurologic: Neurovascularly intact without any focal sensory/motor deficits. Cranial nerves: II-XIIintact, grossly non-focal. Discharge Medications: Glenn Snyder Home Medication Instructions JOSE M:[id number] Printed on:10/27/19 1123 Medication Information amLODIPine (NORVASC) 5 MG tablet Take 1 tablet by mouth daily metoprolol tartrate (LOPRESSOR) 25 MG tablet Take 0.5 tablets by mouth 2 times daily sevelamer (RENVELA) 800 MG tablet Take 2 tablets by mouth 3 times daily (with meals) Recommended Follow-up: trim master operator In 3 weeks post hospital fu appt Brenton Mckeon MD [id number] [facility] [id number] In 2 weeks post hospital fu appt Readmission Risk Risk of Unplanned Readmission: 15 Complexity of Follow up: ? Moderate Complexity: follow up within 7-14 calendar days (56705) ? Severe Complexity: follow up within 7 calendar days (76401) Follow up Testing, Pending results or Referrals at Transitional Care Visit: ? yes ? no Instructions to MA: Please call patient on day after discharge (must document patient contacted within 2 business days of discharge). Follow up questions for MA: 1. Did you get medications filled and taking them as instructed from discharge? 2. Are you following your discharge instructions from your hospital stay? 3. Please confirm patient is scheduled for a follow up appointment within the above time frame. Signed: Darell Sanches DO Division of [facility] Medicine Inpatient Medical Services 10/27/2019, 11:23 AM documented in this [facility] Work Phone: [phone] Hospital Discharge instructions* Discharge Instr - Activity* Darell Sanches DO - 10/24/2019 1:23 PM EST As tolerated * Discharge Instr - Diet* Darell Sanches DO - 10/24/2019 1:23 PM EST ? Good nutrition is important when healing from an illness, injury, or surgery. Follow any nutrition recommendations given to you during your hospital stay. ? If you were given an oral nutrition supplement while in the hospital, continue to take this supplement at home. You can take it with meals, in-between meals, and/or before bedtime. These supplements can be purchased at most local grocery stores, pharmacies, and chain [employer]-stores. ? If you have any questions about your diet or nutrition, call the hospital and ask for the dietitian. * Discharge Instr - Lab* Sophia Bai RN - 10/24/2019 2:21 PM EST [facility] [phone] offer services including medical, dental, [facility], behavioral health and a reduced-rate pharmacy. Fees are based on current income and family size. Please refer to your handout for additional information and all location options. [facility] [place] [address] [place] [address] Wednesday 8 AM 6 PM Wednesday 8 AM 2 PM Hemodialysis will be Wednesday, Wednesday and Wednesday at [facility] located at [address] [place] [phone] or [phone] Please arrive at 9:45 am * Additional Instructions* Darell Sanches DO - 10/24/2019 GENERAL SIGNS AND SYMPTOMS GREEN ZONE: All Clear- Your Symptoms Are Under Control No recurrence of symptoms that led to hospitalization Able to do usual activities No fever No chest pain No shortness of breath This Means You Should: Continue taking your medications as prescribed Continue activity as tolerated Keep all doctor appointments YELLOW ZONE: Caution as Your Health may be Worsening Recurrence of symptoms that led to hospitalization Fever of 100 degrees or higher Increased fatigue or restlessness Intolerant side-effects of medications Uneasy feeling or that something is wrong This Means You Should: Call your doctor for further instructions RED ZONE: Medical Alert Severe or unrelieved shortness of breath at rest Unrelieved chest pain Confusion or you can't think clearly This Means You Should Call 911 Immediately * Attachments The following attachments cannot be sent through Care Everywhere. * Kidney Biopsy: Post-op (Latvian) documented in [facility] Work Phone: Evaluation note* Diagnosis Acute kidney injury (HCC)- Primary Acute kidney failure, unspecified Uncontrolled hypertension Unspecified essential hypertension Normocytic anemia Anemia, unspecified Angioedema, initial encounter Hyperkalemia Hyperpotassemia Metabolic acidosis Acidosis Rectal bleeding Hemorrhage of rectum and anus Acute renal failure (ARF) (HCC) Acute kidney failure, unspecified documented in [facility] encounter [facility] Work Phone: Evaluation note* Diagnosis Acute blood loss anemia- Primary Acute posthemorrhagic anemia Rectal bleeding Hemorrhage of rectum and anus [facility] Other iron deficiency anemia- Primary Rectal bleeding Hemorrhage of rectum and anus [facility]* Diagnosis Skin sore- Primary ESRD (end stage renal disease) on dialysis (HCC) End stage renal disease [facility]* Diagnosis New onset a-fib (CMS/HCC) (HCC)- Primary Atrial fibrillation New onset a-fib (CMS/HCC) (HCC) Atrial fibrillation Atrial fibrillation, persistent (HCC) [facility] Diagnosis Nonrheumatic aortic valve stenosis- Primary Paroxysmal A-fib (CMS/HCC) (HCC) Primary hypertension Unspecified essential hypertension Calcification of abdominal aorta (HCC) Tobacco abuse Tobacco use disorder ESRD on hemodialysis (CMS/HCC) (HCC) [facility] Diagnosis Personal history of nicotine dependence- Primary Nicotine dependence, cigarettes, uncomplicated [facility] Diagnosis Paroxysmal A-fib (CMS/HCC) (HCC)- Primary Nonrheumatic aortic valve stenosis Primary hypertension Unspecified essential hypertension ESRD on hemodialysis (CMS/HCC) (HCC) Calcification of abdominal aorta (HCC) Tobacco abuse Tobacco use disorder Nonrheumatic aortic valve stenosis- Primary Paroxysmal A-fib (CMS/HCC) (HCC) Primary hypertension Unspecified essential hypertension Calcification of abdominal aorta (HCC) Tobacco abuse Tobacco use disorder ESRD on hemodialysis (CMS/HCC) (HCC) Paroxysmal A-fib (CMS/HCC) (HCC)- Primary Nonrheumatic aortic valve stenosis Tobacco abuse Tobacco use disorder Alcohol use disorder in remission [facility] Diagnosis Paroxysmal A-fib (CMS/HCC) (HCC)- Primary Nonrheumatic aortic valve stenosis Primary hypertension Unspecified essential hypertension ESRD on hemodialysis (CMS/HCC) (HCC) Calcification of abdominal aorta (HCC) Tobacco abuse Tobacco use disorder Nonrheumatic aortic valve stenosis- Primary Paroxysmal A-fib (CMS/HCC) (HCC) Primary hypertension Unspecified essential hypertension Calcification of abdominal aorta (HCC) Tobacco abuse Tobacco use disorder ESRD on hemodialysis (CMS/HCC) (HCC) Paroxysmal A-fib (CMS/HCC) (HCC)- Primary Nonrheumatic aortic valve stenosis Tobacco abuse Tobacco use disorder Alcohol use disorder in remission Acute respiratory failure with hypoxia (HCC)- Primary Atrial flutter, unspecified type (HCC) Pulmonary embolism, other, unspecified chronicity, unspecified whether acute cor pulmonale present (HCC) Ventilator dependent (HCC) Dependence on respirator, status Tracheostomy dependent (HCC) Tracheostomy status S/P AVR Chronic bronchitis, unspecified chronic bronchitis type (HCC) ESRD on hemodialysis (CMS/HCC) (HCC) documented [facility]* Diagnosis Paroxysmal A-fib (CMS/HCC) (HCC)- Primary Nonrheumatic aortic valve stenosis Primary hypertension Unspecified essential hypertension ESRD on hemodialysis (CMS/HCC) (HCC) Calcification of abdominal aorta (HCC) Tobacco abuse Tobacco use disorder Nonrheumatic aortic valve stenosis- Primary Paroxysmal A-fib (CMS/HCC) (HCC) Primary hypertension Unspecified essential hypertension Calcification of abdominal aorta (HCC) Tobacco abuse Tobacco use disorder ESRD on hemodialysis (CMS/HCC) (HCC) Paroxysmal A-fib (CMS/HCC) (HCC)- Primary Nonrheumatic aortic valve stenosis Tobacco abuse Tobacco use disorder Alcohol use disorder in remission Peritonitis due to fungus (HCC)- Primary History of abdominal surgery S/P AVR 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, 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) Leg DVT (deep venous thromboembolism), acute, left (HCC) Anemia, unspecified type [facility] Diagnosis Paroxysmal A-fib (CMS/HCC) (HCC)- Primary Nonrheumatic aortic valve stenosis Primary hypertension Unspecified essential hypertension ESRD on hemodialysis (CMS/HCC) (HCC) Calcification of abdominal aorta (HCC) Tobacco abuse Tobacco use disorder Nonrheumatic aortic valve stenosis- Primary Paroxysmal A-fib (CMS/HCC) (HCC) Primary hypertension Unspecified essential hypertension Calcification of abdominal aorta (HCC) Tobacco abuse Tobacco use disorder ESRD on hemodialysis (CMS/HCC) (HCC) Paroxysmal A-fib (CMS/HCC) (HCC)- Primary Nonrheumatic aortic valve stenosis Tobacco abuse Tobacco use disorder Alcohol use disorder in remission Acute respiratory failure with hypoxia (HCC)- Primary 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HCC) Tracheostomy status S/P AVR Peritonitis due to fungus (HCC) ESRD on hemodialysis (CMS/HCC) (HCC) 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, 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) Leg DVT (deep venous thromboembolism), acute, left (HCC) History of abdominal surgery [facility] Diagnosis Paroxysmal A-fib (CMS/HCC) (HCC)- Primary Nonrheumatic aortic valve stenosis Primary hypertension Unspecified essential hypertension ESRD on hemodialysis (CMS/HCC) (HCC) Calcification of abdominal aorta (HCC) Tobacco abuse Tobacco use disorder Nonrheumatic aortic valve stenosis- Primary Paroxysmal A-fib (CMS/HCC) (HCC) Primary hypertension Unspecified essential hypertension Calcification of abdominal aorta (HCC) Tobacco abuse Tobacco use disorder ESRD on hemodialysis (CMS/HCC) (HCC) Paroxysmal A-fib (CMS/HCC) (HCC)- Primary Nonrheumatic aortic valve stenosis Tobacco abuse Tobacco use disorder Alcohol use disorder in remission Acute respiratory failure with hypoxia (HCC)- Primary 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HCC) Tracheostomy status Ventilator dependent (HCC) Dependence on respirator, status Pulmonary embolism, other, unspecified chronicity, unspecified whether acute cor pulmonale present (HCC) S/P AVR Tracheostomy dependent (HCC) Tracheostomy status Chronic bronchitis, unspecified chronic bronchitis type (HCC) ESRD on hemodialysis (CMS/HCC) (HCC) [facility]* Diagnosis Paroxysmal A-fib (CMS/HCC) (HCC)- Primary Nonrheumatic aortic valve stenosis Primary hypertension Unspecified essential hypertension ESRD on hemodialysis (CMS/HCC) (HCC) Calcification of abdominal aorta (HCC) Tobacco abuse Tobacco use disorder Nonrheumatic aortic valve stenosis- Primary Paroxysmal A-fib (CMS/HCC) (HCC) Primary hypertension Unspecified essential hypertension Calcification of abdominal aorta (HCC) Tobacco abuse Tobacco use disorder ESRD on hemodialysis (CMS/HCC) (HCC) Paroxysmal A-fib (CMS/HCC) (HCC)- Primary Nonrheumatic aortic valve stenosis Tobacco abuse Tobacco use disorder Alcohol use disorder in remission Acute respiratory failure with hypoxia (HCC)- Primary 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HCC) Tracheostomy status Ventilator dependent (HCC) Dependence on respirator, status Pulmonary embolism, other, unspecified chronicity, unspecified whether acute cor pulmonale present (HCC) S/P AVR [facility] Diagnosis Paroxysmal A-fib (CMS/HCC) (HCC)- Primary Nonrheumatic aortic valve stenosis Primary hypertension Unspecified essential hypertension ESRD on hemodialysis (CMS/HCC) (HCC) Calcification of abdominal aorta (HCC) Tobacco abuse Tobacco use disorder Nonrheumatic aortic valve stenosis- Primary Paroxysmal A-fib (CMS/HCC) (HCC) Primary hypertension Unspecified essential hypertension Calcification of abdominal aorta (HCC) Tobacco abuse Tobacco use disorder ESRD on hemodialysis (CMS/HCC) (HCC) Paroxysmal A-fib (CMS/HCC) (HCC)- Primary Nonrheumatic aortic valve stenosis Tobacco abuse Tobacco use disorder Alcohol use disorder in remission Atypical atrial flutter (HCC)- Primary [facility] Diagnosis Paroxysmal A-fib (CMS/HCC) (HCC)- Primary Nonrheumatic aortic valve stenosis Primary hypertension Unspecified essential hypertension ESRD on hemodialysis (CMS/HCC) (HCC) Calcification of abdominal aorta (HCC) Tobacco abuse Tobacco use disorder Nonrheumatic aortic valve stenosis- Primary Paroxysmal A-fib (CMS/HCC) (HCC) Primary hypertension Unspecified essential hypertension Calcification of abdominal aorta (HCC) Tobacco abuse Tobacco use disorder ESRD on hemodialysis (CMS/HCC) (HCC) Paroxysmal A-fib (CMS/HCC) (HCC)- Primary Nonrheumatic aortic valve stenosis Tobacco abuse Tobacco use disorder Alcohol use disorder in remission Acute respiratory failure with hypoxia (HCC)- Primary 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HCC) Tracheostomy status S/P AVR Peritonitis due to fungus (HCC) ESRD on hemodialysis (CMS/HCC) (HCC) 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, 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) History of abdominal surgery [facility] Diagnosis Paroxysmal A-fib (CMS/HCC) (HCC)- Primary Nonrheumatic aortic valve stenosis Primary hypertension Unspecified essential hypertension ESRD on hemodialysis (CMS/HCC) (HCC) Calcification of abdominal aorta (HCC) Tobacco abuse Tobacco use disorder Nonrheumatic aortic valve stenosis- Primary Paroxysmal A-fib (CMS/HCC) (HCC) Primary hypertension Unspecified essential hypertension Calcification of abdominal aorta (HCC) Tobacco abuse Tobacco use disorder ESRD on hemodialysis (CMS/HCC) (HCC) Paroxysmal A-fib (CMS/HCC) (HCC)- Primary Nonrheumatic aortic valve stenosis Tobacco abuse Tobacco use disorder Alcohol use disorder in remission Acute respiratory failure with hypoxia (HCC)- Primary 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HCC) Tracheostomy status S/P AVR Peritonitis due to fungus (HCC) ESRD on hemodialysis (CMS/HCC) (HCC) 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, 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) History of abdominal surgery [facility] Diagnosis Paroxysmal A-fib (CMS/HCC) (HCC)- Primary Nonrheumatic aortic valve stenosis Primary hypertension Unspecified essential hypertension ESRD on hemodialysis (CMS/HCC) (HCC) Calcification of abdominal aorta (HCC) Tobacco abuse Tobacco use disorder Nonrheumatic aortic valve stenosis- Primary Paroxysmal A-fib (CMS/HCC) (HCC) Primary hypertension Unspecified essential hypertension Calcification of abdominal aorta (HCC) Tobacco abuse Tobacco use disorder ESRD on hemodialysis (CMS/HCC) (HCC) Paroxysmal A-fib (CMS/HCC) (HCC)- Primary Nonrheumatic aortic valve stenosis Tobacco abuse Tobacco use disorder Alcohol use disorder in remission Acute respiratory failure with hypoxia (HCC)- Primary 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HCC) Tracheostomy status S/P AVR Peritonitis due to fungus (HCC) ESRD on hemodialysis (CMS/HCC) (HCC) 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, 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) Anemia, unspecified type History of abdominal surgery [facility] Diagnosis Paroxysmal A-fib (CMS/HCC) (HCC)- Primary Nonrheumatic aortic valve stenosis Primary hypertension Unspecified essential hypertension ESRD on hemodialysis (CMS/HCC) (HCC) Calcification of abdominal aorta (HCC) Tobacco abuse Tobacco use disorder Nonrheumatic aortic valve stenosis- Primary Paroxysmal A-fib (CMS/HCC) (HCC) Primary hypertension Unspecified essential hypertension Calcification of abdominal aorta (HCC) Tobacco abuse Tobacco use disorder ESRD on hemodialysis (CMS/HCC) (HCC) Paroxysmal A-fib (CMS/HCC) (HCC)- Primary Nonrheumatic aortic valve stenosis Tobacco abuse Tobacco use disorder Alcohol use disorder in remission RSV (acute bronchiolitis due to respiratory syncytial virus)- Primary Acute bronchiolitis due to respiratory syncytial virus (RSV) 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HCC) Tracheostomy status Acute respiratory failure with hypoxia (HCC) Nonrheumatic aortic valve stenosis Atrial flutter, unspecified type (HCC) Pulmonary embolism, other, unspecified chronicity, unspecified whether acute cor pulmonale present (HCC) documented in this encounter [facility]* Diagnosis Paroxysmal A-fib (CMS/HCC) (HCC)- Primary Nonrheumatic aortic valve stenosis Primary hypertension Unspecified essential hypertension ESRD on hemodialysis (CMS/HCC) (HCC) Calcification of abdominal aorta (HCC) Tobacco abuse Tobacco use disorder Nonrheumatic aortic valve stenosis- Primary Paroxysmal A-fib (CMS/HCC) (HCC) Primary hypertension Unspecified essential hypertension Calcification of abdominal aorta (HCC) Tobacco abuse Tobacco use disorder ESRD on hemodialysis (CMS/HCC) (HCC) Paroxysmal A-fib (CMS/HCC) (HCC)- Primary Nonrheumatic aortic valve stenosis Tobacco abuse Tobacco use disorder Alcohol use disorder in remission Peritonitis due to fungus (HCC)- Primary Acute respiratory failure with hypoxia (HCC) Nonrheumatic aortic valve stenosis Acute encephalopathy ESRD on hemodialysis (CMS/HCC) (HCC) Alcohol use disorder in remission [facility] Diagnosis Paroxysmal A-fib (CMS/HCC) (HCC)- Primary Nonrheumatic aortic valve stenosis Primary hypertension Unspecified essential hypertension ESRD on hemodialysis (CMS/HCC) (HCC) Calcification of abdominal aorta (HCC) Tobacco abuse Tobacco use disorder Nonrheumatic aortic valve stenosis- Primary Paroxysmal A-fib (CMS/HCC) (HCC) Primary hypertension Unspecified essential hypertension Calcification of abdominal aorta (HCC) Tobacco abuse Tobacco use disorder ESRD on hemodialysis (CMS/HCC) (HCC) Paroxysmal A-fib (CMS/HCC) (HCC)- Primary Nonrheumatic aortic valve stenosis Tobacco abuse Tobacco use disorder Alcohol use disorder in remission RSV (acute bronchiolitis due to respiratory syncytial virus)- Primary Acute bronchiolitis due to respiratory syncytial virus (RSV) 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HCC) Tracheostomy status Acute respiratory failure with hypoxia (HCC) Paroxysmal A-fib (CMS/HCC) (HCC) Peritonitis due to fungus (HCC) [facility] Diagnosis Paroxysmal A-fib (CMS/HCC) (HCC)- Primary Nonrheumatic aortic valve stenosis Primary hypertension Unspecified essential hypertension ESRD on hemodialysis (CMS/HCC) (HCC) Calcification of abdominal aorta (HCC) Tobacco abuse Tobacco use disorder Nonrheumatic aortic valve stenosis- Primary Paroxysmal A-fib (CMS/HCC) (HCC) Primary hypertension Unspecified essential hypertension Calcification of abdominal aorta (HCC) Tobacco abuse Tobacco use disorder ESRD on hemodialysis (CMS/HCC) (HCC) Paroxysmal A-fib (CMS/HCC) (HCC)- Primary Nonrheumatic aortic valve stenosis Tobacco abuse Tobacco use disorder Alcohol use disorder in remission Acute respiratory failure with hypoxia (HCC)- Primary 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HCC) Tracheostomy status RSV (acute bronchiolitis due to respiratory syncytial virus) Acute bronchiolitis due to respiratory syncytial virus (RSV) Paroxysmal A-fib (CMS/HCC) (HCC) Nonrheumatic aortic valve stenosis [facility] Diagnosis Paroxysmal A-fib (CMS/HCC) (HCC)- Primary Nonrheumatic aortic valve stenosis Primary hypertension Unspecified essential hypertension ESRD on hemodialysis (CMS/HCC) (HCC) Calcification of abdominal aorta (HCC) Tobacco abuse Tobacco use disorder Nonrheumatic aortic valve stenosis- Primary Paroxysmal A-fib (CMS/HCC) (HCC) Primary hypertension Unspecified essential hypertension Calcification of abdominal aorta (HCC) Tobacco abuse Tobacco use disorder ESRD on hemodialysis ([facility]) (HCC) Paroxysmal A-fib ([facility]/HCC) (HCC)- Primary Nonrheumatic aortic valve stenosis Tobacco abuse Tobacco use disorder Alcohol use disorder in remission Acute respiratory failure with hypoxia (HCC)- Primary 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HCC) Tracheostomy status RSV (acute bronchiolitis due to respiratory syncytial virus) Acute bronchiolitis due to respiratory syncytial virus (RSV) ESRD on hemodialysis ([facility]) ([facility]) Pulmonary embolism, other, unspecified chronicity, unspecified whether acute cor pulmonale present ([facility]) Nonrheumatic aortic valve stenosis documented in this encounter [facility]* Diagnosis Paroxysmal A-fib ([facility]/HCC) (HCC)- Primary Nonrheumatic aortic valve stenosis Primary hypertension Unspecified essential hypertension ESRD on hemodialysis ([facility]) ([facility]) Calcification of abdominal aorta (HCC) Tobacco abuse Tobacco use disorder Nonrheumatic aortic valve stenosis- Primary Paroxysmal A-fib ([facility]) ([facility]) Primary hypertension Unspecified essential hypertension Calcification of abdominal aorta (HCC) Tobacco abuse Tobacco use disorder ESRD on hemodialysis ([facility]) ([facility]) Paroxysmal A-fib ([facility]) ([facility])- Primary Nonrheumatic aortic valve stenosis Tobacco abuse Tobacco use disorder Alcohol use disorder in remission Acute respiratory failure with hypoxia (HCC)- Primary 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[facility]) Tracheostomy status RSV (acute bronchiolitis due to respiratory syncytial virus) Acute bronchiolitis due to respiratory syncytial virus (RSV) Leg DVT (deep venous thromboembolism), acute, left (HCC) Nonrheumatic aortic valve stenosis documented in this encounter [facility]* Diagnosis Paroxysmal A-fib ([facility]/HCC) (HCC)- Primary Nonrheumatic aortic valve stenosis Primary hypertension Unspecified essential hypertension ESRD on hemodialysis ([facility]) ([facility]) Calcification of abdominal aorta (HCC) Tobacco abuse Tobacco use disorder Nonrheumatic aortic valve stenosis- Primary Paroxysmal A-fib ([facility]/HCC) ([facility]) Primary hypertension Unspecified essential hypertension Calcification of abdominal aorta (HCC) Tobacco abuse Tobacco use disorder ESRD on hemodialysis ([facility]) (HCC) Paroxysmal A-fib ([facility]/HCC) (HCC)- Primary Nonrheumatic aortic valve stenosis Tobacco abuse Tobacco use disorder Alcohol use disorder in remission Acute respiratory failure with hypoxia ([facility]) [J96.01]- Primary 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] Tracheostomy status LRTI (lower respiratory tract infection) [J22] Other diseases of respiratory system, not elsewhere classified [facility]* Diagnosis Paroxysmal A-fib (CMS/HCC) (HCC)- Primary Nonrheumatic aortic valve stenosis Primary hypertension Unspecified essential hypertension ESRD on hemodialysis (CMS/HCC) (HCC) Calcification of abdominal aorta (HCC) Tobacco abuse Tobacco use disorder Nonrheumatic aortic valve stenosis- Primary Paroxysmal A-fib (CMS/HCC) (HCC) Primary hypertension Unspecified essential hypertension Calcification of abdominal aorta (HCC) Tobacco abuse Tobacco use disorder ESRD on hemodialysis (CMS/HCC) (HCC) Paroxysmal A-fib (CMS/HCC) (HCC)- Primary Nonrheumatic aortic valve stenosis Tobacco abuse Tobacco use disorder Alcohol use disorder in remission 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]- Primary Tracheostomy status Acute respiratory failure with hypoxia (HCC) [J96.01] LRTI (lower respiratory tract infection) [J22] Other diseases of respiratory system, not elsewhere classified [facility]* Diagnosis Paroxysmal A-fib (CMS/HCC) (HCC)- Primary Nonrheumatic aortic valve stenosis Primary hypertension Unspecified essential hypertension ESRD on hemodialysis (CMS/HCC) (HCC) Calcification of abdominal aorta (HCC) Tobacco abuse Tobacco use disorder Nonrheumatic aortic valve stenosis- Primary Paroxysmal A-fib (CMS/HCC) (HCC) Primary hypertension Unspecified essential hypertension Calcification of abdominal aorta (HCC) Tobacco abuse Tobacco use disorder ESRD on hemodialysis (CMS/HCC) (HCC) Paroxysmal A-fib (CMS/HCC) (HCC)- Primary Nonrheumatic aortic valve stenosis Tobacco abuse Tobacco use disorder Alcohol use disorder in remission Acute respiratory failure with hypoxia (HCC) [J96.01]- Primary 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] Tracheostomy status Tracheostomy care (HCC) [Z43.0] Attention to tracheostomy History of pulmonary embolus (PE) [Z86.711] [facility]* Diagnosis Paroxysmal A-fib (CMS/HCC) (HCC)- Primary Nonrheumatic aortic valve stenosis Primary hypertension Unspecified essential hypertension ESRD on hemodialysis (CMS/HCC) (HCC) Calcification of abdominal aorta (HCC) Tobacco abuse Tobacco use disorder Nonrheumatic aortic valve stenosis- Primary Paroxysmal A-fib (CMS/HCC) (HCC) Primary hypertension Unspecified essential hypertension Calcification of abdominal aorta (HCC) Tobacco abuse Tobacco use disorder ESRD on hemodialysis (CMS/HCC) (HCC) Paroxysmal A-fib (CMS/HCC) (HCC)- Primary Nonrheumatic aortic valve stenosis Tobacco abuse Tobacco use disorder Alcohol use disorder in remission Leukocytosis, unspecified type- Primary Acute hypoxic respiratory failure (HCC) 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HCC) Tracheostomy status S/P AVR ESRD on hemodialysis (CMS/HCC) (HCC) Decubitus ulcer of sacral region, unstageable (HCC) [facility]* Diagnosis Paroxysmal A-fib (CMS/HCC) (HCC)- Primary Nonrheumatic aortic valve stenosis Primary hypertension Unspecified essential hypertension ESRD on hemodialysis (CMS/HCC) (HCC) Calcification of abdominal aorta (HCC) Tobacco abuse Tobacco use disorder Nonrheumatic aortic valve stenosis- Primary Paroxysmal A-fib (CMS/HCC) (HCC) Primary hypertension Unspecified essential hypertension Calcification of abdominal aorta (HCC) Tobacco abuse Tobacco use disorder ESRD on hemodialysis (CMS/HCC) (HCC) Paroxysmal A-fib (CMS/HCC) (HCC)- Primary Nonrheumatic aortic valve stenosis Tobacco abuse Tobacco use disorder Alcohol use disorder in remission Persistent atrial fibrillation (HCC)- Primary Atrial fibrillation [facility]* Diagnosis Paroxysmal A-fib (CMS/HCC) (HCC)- Primary Nonrheumatic aortic valve stenosis Primary hypertension Unspecified essential hypertension ESRD on hemodialysis (CMS/HCC) (HCC) Calcification of abdominal aorta (HCC) Tobacco abuse Tobacco use disorder Nonrheumatic aortic valve stenosis- Primary Paroxysmal A-fib (CMS/HCC) (HCC) Primary hypertension Unspecified essential hypertension Calcification of abdominal aorta (HCC) Tobacco abuse Tobacco use disorder ESRD on hemodialysis (CMS/HCC) (HCC) Paroxysmal A-fib (CMS/HCC) (HCC)- Primary Nonrheumatic aortic valve stenosis Tobacco abuse Tobacco use disorder Alcohol use disorder in remission 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]- Primary Tracheostomy status Acute respiratory failure with hypoxia (HCC) [J96.01] [facility]* Diagnosis Paroxysmal A-fib (CMS/HCC) (HCC)- Primary Nonrheumatic aortic valve stenosis Primary hypertension Unspecified essential hypertension ESRD on hemodialysis (CMS/HCC) (HCC) Calcification of abdominal aorta (HCC) Tobacco abuse Tobacco use disorder Nonrheumatic aortic valve stenosis- Primary Paroxysmal A-fib (CMS/HCC) (HCC) Primary hypertension Unspecified essential hypertension Calcification of abdominal aorta (HCC) Tobacco abuse Tobacco use disorder ESRD on hemodialysis (CMS/HCC) (HCC) Paroxysmal A-fib (CMS/HCC) (HCC)- Primary Nonrheumatic aortic valve stenosis Tobacco abuse Tobacco use disorder Alcohol use disorder in remission Leukocytosis, unspecified type- Primary Pneumonia of both lungs due to methicillin susceptible Staphylococcus aureus (MSSA), unspecified part of lung (HCC) Acute hypoxic respiratory failure (HCC) 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HCC) Tracheostomy status Decubitus ulcer of sacral region, unstageable (HCC) ESRD on hemodialysis (CMS/HCC) (HCC) S/P AVR [facility]* Diagnosis Paroxysmal A-fib (CMS/HCC) (HCC)- Primary Nonrheumatic aortic valve stenosis Primary hypertension Unspecified essential hypertension ESRD on hemodialysis ([facility]/HCC) (HCC) Calcification of abdominal aorta (HCC) Tobacco abuse Tobacco use disorder Nonrheumatic aortic valve stenosis- Primary Paroxysmal A-fib (CMS/HCC) (HCC) Primary hypertension Unspecified essential hypertension Calcification of abdominal aorta (HCC) Tobacco abuse Tobacco use disorder ESRD on hemodialysis ([facility]/HCC) (HCC) Paroxysmal A-fib ([facility]/HCC) (HCC)- Primary Nonrheumatic aortic valve stenosis Tobacco abuse Tobacco use disorder Alcohol use disorder in remission Leukocytosis, unspecified type- Primary Pneumonia of both lungs due to methicillin susceptible Staphylococcus aureus (MSSA), unspecified part of lung (HCC) Acute hypoxic respiratory failure (HCC) Decubitus ulcer of sacral region, unstageable (HCC) ESRD on hemodialysis (CMS/HCC) (HCC) S/P AVR [facility]* Diagnosis Paroxysmal A-fib (CMS/HCC) (HCC)- Primary Nonrheumatic aortic valve stenosis Primary hypertension Unspecified essential hypertension ESRD on hemodialysis (CMS/HCC) (HCC) Calcification of abdominal aorta (HCC) Tobacco abuse Tobacco use disorder Nonrheumatic aortic valve stenosis- Primary Paroxysmal A-fib (CMS/HCC) (HCC) Primary hypertension Unspecified essential hypertension Calcification of abdominal aorta (HCC) Tobacco abuse Tobacco use disorder ESRD on hemodialysis (CMS/HCC) (HCC) Paroxysmal A-fib (CMS/HCC) (HCC)- Primary Nonrheumatic aortic valve stenosis Tobacco abuse Tobacco use disorder Alcohol use disorder in remission Sacral osteomyelitis (CMS/HCC) (HCC)- Primary Decubitus ulcer of sacral region, unstageable (HCC) Pneumonia of both lungs due to methicillin susceptible Staphylococcus aureus (MSSA), unspecified part of lung (HCC) Leukocytosis, unspecified type ESRD on hemodialysis (CMS/HCC) (HCC) S/P AVR documented in this encounter [facility]* Diagnosis Paroxysmal A-fib (CMS/HCC) (HCC)- Primary Nonrheumatic aortic valve stenosis Primary hypertension Unspecified essential hypertension ESRD on hemodialysis (CMS/HCC) (HCC) Calcification of abdominal aorta (HCC) Tobacco abuse Tobacco use disorder Nonrheumatic aortic valve stenosis- Primary Paroxysmal A-fib (CMS/HCC) (HCC) Primary hypertension Unspecified essential hypertension Calcification of abdominal aorta (HCC) Tobacco abuse Tobacco use disorder ESRD on hemodialysis (CMS/HCC) (HCC) Paroxysmal A-fib (CMS/HCC) (HCC)- Primary Nonrheumatic aortic valve stenosis Tobacco abuse Tobacco use disorder Alcohol use disorder in remission 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]- Primary Tracheostomy status Acute respiratory failure with hypoxia (HCC) [J96.01] documented in this encounter [facility]* Diagnosis Paroxysmal A-fib (CMS/HCC) (HCC)- Primary Nonrheumatic aortic valve stenosis Primary hypertension Unspecified essential hypertension ESRD on hemodialysis (CMS/HCC) (HCC) Calcification of abdominal aorta (HCC) Tobacco abuse Tobacco use disorder Nonrheumatic aortic valve stenosis- Primary Paroxysmal A-fib (CMS/HCC) (HCC) Primary hypertension Unspecified essential hypertension Calcification of abdominal aorta (HCC) Tobacco abuse Tobacco use disorder ESRD on hemodialysis (CMS/HCC) (HCC) Paroxysmal A-fib (CMS/HCC) (HCC)- Primary Nonrheumatic aortic valve stenosis Tobacco abuse Tobacco use disorder Alcohol use disorder in remission 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HCC)- Primary Tracheostomy status Pneumonia of both lungs due to methicillin susceptible Staphylococcus aureus (MSSA), unspecified part of lung (HCC) Acute hypoxic respiratory failure (HCC) Peritonitis due to fungus (HCC) ESRD on hemodialysis (CMS/HCC) (HCC) Sacral osteomyelitis (CMS/HCC) (HCC) Leukocytosis, unspecified type History of abdominal surgery [facility] Diagnosis Paroxysmal A-fib (CMS/HCC) (HCC)- Primary Nonrheumatic aortic valve stenosis Primary hypertension Unspecified essential hypertension ESRD on hemodialysis (CMS/HCC) (HCC) Calcification of abdominal aorta (HCC) Tobacco abuse Tobacco use disorder Nonrheumatic aortic valve stenosis- Primary Paroxysmal A-fib (CMS/HCC) (HCC) Primary hypertension Unspecified essential hypertension Calcification of abdominal aorta (HCC) Tobacco abuse Tobacco use disorder ESRD on hemodialysis (CMS/HCC) (HCC) Paroxysmal A-fib (CMS/HCC) (HCC)- Primary Nonrheumatic aortic valve stenosis Tobacco abuse Tobacco use disorder Alcohol use disorder in remission Pneumonia of both lungs due to methicillin susceptible Staphylococcus aureus (MSSA), unspecified part of lung (HCC)- Primary Acute hypoxic respiratory failure (HCC) 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HCC) Tracheostomy status ESRD on hemodialysis (CMS/HCC) (HCC) Sacral osteomyelitis (CMS/HCC) (HCC) Decubitus ulcer of sacral region, unstageable (HCC) documented in this encounter [facility]* Diagnosis Paroxysmal A-fib (CMS/HCC) (HCC)- Primary Nonrheumatic aortic valve stenosis Primary hypertension Unspecified essential hypertension ESRD on hemodialysis (CMS/HCC) (HCC) Calcification of abdominal aorta (HCC) Tobacco abuse Tobacco use disorder Nonrheumatic aortic valve stenosis- Primary Paroxysmal A-fib (CMS/HCC) (HCC) Primary hypertension Unspecified essential hypertension Calcification of abdominal aorta (HCC) Tobacco abuse Tobacco use disorder ESRD on hemodialysis (CMS/HCC) (HCC) Paroxysmal A-fib (CMS/HCC) (HCC)- Primary Nonrheumatic aortic valve stenosis Tobacco abuse Tobacco use disorder Alcohol use disorder in remission Acute respiratory failure with hypoxia (HCC) [J96.01]- Primary 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] Tracheostomy status LRTI (lower respiratory tract infection) [J22] Other diseases of respiratory system, not elsewhere classified documented in this encounter [facility]* Diagnosis Paroxysmal A-fib (CMS/HCC) (HCC)- Primary Nonrheumatic aortic valve stenosis Primary hypertension Unspecified essential hypertension ESRD on hemodialysis (CMS/HCC) (HCC) Calcification of abdominal aorta (HCC) Tobacco abuse Tobacco use disorder Nonrheumatic aortic valve stenosis- Primary Paroxysmal A-fib (CMS/HCC) (HCC) Primary hypertension Unspecified essential hypertension Calcification of abdominal aorta (HCC) Tobacco abuse Tobacco use disorder ESRD on hemodialysis (CMS/HCC) (HCC) Paroxysmal A-fib (CMS/HCC) (HCC)- Primary Nonrheumatic aortic valve stenosis Tobacco abuse Tobacco use disorder Alcohol use disorder in remission 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HCC)- Primary Tracheostomy status Pneumonia of both lungs due to methicillin susceptible Staphylococcus aureus (MSSA), unspecified part of lung (HCC) ESRD on hemodialysis (CMS/HCC) (HCC) Sacral osteomyelitis (CMS/HCC) (HCC) documented in this encounter [facility]Evaluation note* Diagnosis Paroxysmal A-fib (CMS/HCC) (HCC)- Primary Nonrheumatic aortic valve stenosis Primary hypertension Unspecified essential hypertension ESRD on hemodialysis (CMS/HCC) (HCC) Calcification of abdominal aorta (HCC) Tobacco abuse Tobacco use disorder Nonrheumatic aortic valve stenosis- Primary Paroxysmal A-fib (CMS/HCC) (HCC) Primary hypertension Unspecified essential hypertension Calcification of abdominal aorta (HCC) Tobacco abuse Tobacco use disorder ESRD on hemodialysis (CMS/HCC) (HCC) Paroxysmal A-fib (CMS/HCC) (HCC)- Primary Nonrheumatic aortic valve stenosis Tobacco abuse Tobacco use disorder Alcohol use disorder in remission Acute respiratory failure with hypoxia ([facility]) [J96.01]- Primary Tracheostomy care ([facility]) [Z43.0] Attention to tracheostomy Pulmonary embolism, other, unspecified chronicity, unspecified whether acute cor pulmonale present ([facility]) documented in this encounter [facility]Evaluation note* Diagnosis Paroxysmal A-fib (CMS/HCC) (HCC)- Primary Nonrheumatic aortic valve stenosis Primary hypertension Unspecified essential hypertension ESRD on hemodialysis (CMS/HCC) (HCC) Calcification of abdominal aorta (HCC) Tobacco abuse Tobacco use disorder Nonrheumatic aortic valve stenosis- Primary Paroxysmal A-fib (CMS/HCC) (HCC) Primary hypertension Unspecified essential hypertension Calcification of abdominal aorta (HCC) Tobacco abuse Tobacco use disorder ESRD on hemodialysis (CMS/HCC) (HCC) Paroxysmal A-fib (CMS/HCC) (HCC)- Primary Nonrheumatic aortic valve stenosis Tobacco abuse Tobacco use disorder Alcohol use disorder in remission Acute respiratory failure with hypoxia ([facility]) [J96.01]- Primary 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[facility]) [Z93.0] Tracheostomy status Pulmonary embolism, other, unspecified chronicity, unspecified whether acute cor pulmonale present (HCC) [facility] Diagnosis Paroxysmal A-fib (CMS/HCC) (HCC)- Primary Nonrheumatic aortic valve stenosis Primary hypertension Unspecified essential hypertension ESRD on hemodialysis (CMS/HCC) (HCC) Calcification of abdominal aorta (HCC) Tobacco abuse Tobacco use disorder Nonrheumatic aortic valve stenosis- Primary Paroxysmal A-fib (CMS/HCC) (HCC) Primary hypertension Unspecified essential hypertension Calcification of abdominal aorta (HCC) Tobacco abuse Tobacco use disorder ESRD on hemodialysis (CMS/HCC) (HCC) Paroxysmal A-fib (CMS/HCC) (HCC)- Primary Nonrheumatic aortic valve stenosis Tobacco abuse Tobacco use disorder Alcohol use disorder in remission 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HCC)- Primary Tracheostomy status ESRD on hemodialysis (CMS/HCC) (HCC) Sacral osteomyelitis (CMS/HCC) (HCC) Decubitus ulcer of sacral region, unstageable (HCC) [facility]* Diagnosis Paroxysmal A-fib (CMS/HCC) (HCC)- Primary Nonrheumatic aortic valve stenosis Primary hypertension Unspecified essential hypertension ESRD on hemodialysis (CMS/HCC) (HCC) Calcification of abdominal aorta (HCC) Tobacco abuse Tobacco use disorder Nonrheumatic aortic valve stenosis- Primary Paroxysmal A-fib (CMS/HCC) (HCC) Primary hypertension Unspecified essential hypertension Calcification of abdominal aorta (HCC) Tobacco abuse Tobacco use disorder ESRD on hemodialysis (CMS/HCC) (HCC) Paroxysmal A-fib (CMS/HCC) (HCC)- Primary Nonrheumatic aortic valve stenosis Tobacco abuse Tobacco use disorder Alcohol use disorder in remission 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HCC)- Primary Tracheostomy status Sacral osteomyelitis (CMS/HCC) (HCC) Leukocytosis, unspecified type Decubitus ulcer of sacral region, unstageable (HCC) senior living (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 [facility]* Diagnosis Paroxysmal A-fib (CMS/HCC) (HCC)- Primary Nonrheumatic aortic valve stenosis Primary hypertension Unspecified essential hypertension ESRD on hemodialysis (CMS/HCC) (HCC) Calcification of abdominal aorta (HCC) Tobacco abuse Tobacco use disorder Nonrheumatic aortic valve stenosis- Primary Paroxysmal A-fib (CMS/HCC) (HCC) Primary hypertension Unspecified essential hypertension Calcification of abdominal aorta (HCC) Tobacco abuse Tobacco use disorder ESRD on hemodialysis (CMS/HCC) (HCC) Paroxysmal A-fib (CMS/HCC) (HCC)- Primary Nonrheumatic aortic valve stenosis Tobacco abuse Tobacco use disorder Alcohol use disorder in remission Acute respiratory failure with hypoxia (HCC) [J96.01]- Primary 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[facility]) [Z93.0] Tracheostomy status Pulmonary embolism, other, unspecified chronicity, unspecified whether acute cor pulmonale present (HCC) documented in this encounter [facility] note* Diagnosis Paroxysmal A-fib (CMS/HCC) (HCC)- Primary Nonrheumatic aortic valve stenosis Primary hypertension Unspecified essential hypertension ESRD on hemodialysis (CMS/HCC) (HCC) Calcification of abdominal aorta (HCC) Tobacco abuse Tobacco use disorder Nonrheumatic aortic valve stenosis- Primary Paroxysmal A-fib (CMS/HCC) (HCC) Primary hypertension Unspecified essential hypertension Calcification of abdominal aorta (HCC) Tobacco abuse Tobacco use disorder ESRD on hemodialysis (CMS/HCC) (HCC) Paroxysmal A-fib (CMS/HCC) (HCC)- Primary Nonrheumatic aortic valve stenosis Tobacco abuse Tobacco use disorder Alcohol use disorder in remission RSV (acute bronchiolitis due to respiratory syncytial virus)- Primary Acute bronchiolitis due to respiratory syncytial virus (RSV) 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HCC) Tracheostomy status Acute respiratory failure with hypoxia ([facility]) [J96.01] Leg DVT (deep venous thromboembolism), acute, left (HCC) Pulmonary embolism, unspecified chronicity, unspecified pulmonary embolism type, unspecified whether acute cor pulmonale present ([facility]) S/P AVR documented in this encounter [facility] note* Diagnosis Paroxysmal A-fib (CMS/HCC) (HCC)- Primary Nonrheumatic aortic valve stenosis Primary hypertension Unspecified essential hypertension ESRD on hemodialysis (CMS/HCC) (HCC) Calcification of abdominal aorta (HCC) Tobacco abuse Tobacco use disorder Nonrheumatic aortic valve stenosis- Primary Paroxysmal A-fib (CMS/HCC) (HCC) Primary hypertension Unspecified essential hypertension Calcification of abdominal aorta (HCC) Tobacco abuse Tobacco use disorder ESRD on hemodialysis (CMS/HCC) (HCC) Paroxysmal A-fib (CMS/HCC) (HCC)- Primary Nonrheumatic aortic valve stenosis Tobacco abuse Tobacco use disorder Alcohol use disorder in remission 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HCC)- Primary Tracheostomy status ESRD on hemodialysis (CMS/HCC) (HCC) 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, 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) Sacral osteomyelitis (CMS/HCC) (HCC) Leukocytosis, unspecified type documented in this encounter [facility] note* Diagnosis Paroxysmal A-fib (CMS/HCC) (HCC)- Primary Nonrheumatic aortic valve stenosis Primary hypertension Unspecified essential hypertension ESRD on hemodialysis (CMS/HCC) (HCC) Calcification of abdominal aorta (HCC) Tobacco abuse Tobacco use disorder Nonrheumatic aortic valve stenosis- Primary Paroxysmal A-fib (CMS/HCC) (HCC) Primary hypertension Unspecified essential hypertension Calcification of abdominal aorta (HCC) Tobacco abuse Tobacco use disorder ESRD on hemodialysis (CMS/HCC) (HCC) Paroxysmal A-fib (CMS/HCC) (HCC)- Primary Nonrheumatic aortic valve stenosis Tobacco abuse Tobacco use disorder Alcohol use disorder in remission RSV (acute bronchiolitis due to respiratory syncytial virus)- Primary Acute bronchiolitis due to respiratory syncytial virus (RSV) 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HCC) Tracheostomy status Pneumonia of both lungs due to methicillin susceptible Staphylococcus aureus (MSSA), unspecified part of lung ([facility]) Acute respiratory failure with hypoxia ([facility]) [J96.01] Nonrheumatic aortic valve stenosis Pulmonary embolism, unspecified chronicity, unspecified pulmonary embolism type, unspecified whether acute cor pulmonale present ([facility]) documented in this encounter [facility] note* Diagnosis Paroxysmal A-fib (CMS/HCC) (HCC)- Primary Nonrheumatic aortic valve stenosis Primary hypertension Unspecified essential hypertension ESRD on hemodialysis (CMS/HCC) (HCC) Calcification of abdominal aorta (HCC) Tobacco abuse Tobacco use disorder Nonrheumatic aortic valve stenosis- Primary Paroxysmal A-fib (CMS/HCC) ([facility]) Primary hypertension Unspecified essential hypertension Calcification of abdominal aorta (HCC) Tobacco abuse Tobacco use disorder ESRD on hemodialysis (CMS/HCC) (HCC) Paroxysmal A-fib (CMS/HCC) (HCC)- Primary Nonrheumatic aortic valve stenosis Tobacco abuse Tobacco use disorder Alcohol use disorder in remission 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HCC)- Primary Tracheostomy status ESRD on hemodialysis (CMS/HCC) ([facility]) senior living (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 Decubitus ulcer of sacral region, unstageable (HCC) Sacral osteomyelitis (CMS/HCC) (HCC) documented in this encounter [facility]* Diagnosis Paroxysmal A-fib (CMS/HCC) (HCC)- Primary Nonrheumatic aortic valve stenosis Primary hypertension Unspecified essential hypertension ESRD on hemodialysis (CMS/HCC) (HCC) Calcification of abdominal aorta (HCC) Tobacco abuse Tobacco use disorder Nonrheumatic aortic valve stenosis- Primary Paroxysmal A-fib (CMS/HCC) (HCC) Primary hypertension Unspecified essential hypertension Calcification of abdominal aorta (HCC) Tobacco abuse Tobacco use disorder ESRD on hemodialysis (CMS/HCC) (HCC) Paroxysmal A-fib (CMS/HCC) (HCC)- Primary Nonrheumatic aortic valve stenosis Tobacco abuse Tobacco use disorder Alcohol use disorder in remission Acute respiratory failure with hypoxia ([facility]) [J96.01]- Primary RSV (acute bronchiolitis due to respiratory syncytial virus) Acute bronchiolitis due to respiratory syncytial virus (RSV) 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HCC) Tracheostomy status Leg DVT (deep venous thromboembolism), acute, left (HCC) Pulmonary embolism, unspecified chronicity, unspecified pulmonary embolism type, unspecified whether acute cor pulmonale present ([facility]) S/P AVR documented in this encounter [facility]* Diagnosis Paroxysmal A-fib (CMS/HCC) (HCC)- Primary Nonrheumatic aortic valve stenosis Primary hypertension Unspecified essential hypertension ESRD on hemodialysis (CMS/HCC) (HCC) Calcification of abdominal aorta (HCC) Tobacco abuse Tobacco use disorder Nonrheumatic aortic valve stenosis- Primary Paroxysmal A-fib (CMS/HCC) (HCC) Primary hypertension Unspecified essential hypertension Calcification of abdominal aorta (HCC) Tobacco abuse Tobacco use disorder ESRD on hemodialysis (CMS/HCC) (HCC) Paroxysmal A-fib (CMS/HCC) (HCC)- Primary Nonrheumatic aortic valve stenosis Tobacco abuse Tobacco use disorder Alcohol use disorder in remission Complication of tracheostomy (CMS/HCC) (HCC)- Primary Complication of tracheostomy (CMS/HCC) (HCC) Pressure injury of sacral region, stage 4 (HCC) Melena Blood in stool BRBPR (bright red blood per rectum) Hemorrhage of rectum and anus Sacral osteomyelitis (CMS/HCC) (HCC) Decubitus ulcer of sacral region, unstageable (HCC) Severe malnutrition (CMS/HCC) (HCC) Nutritional marasmus BRBPR (bright red blood per rectum) Hemorrhage of rectum and anus documented in this encounter [facility]* Diagnosis Paroxysmal A-fib (CMS/HCC) (HCC)- Primary Nonrheumatic aortic valve stenosis Primary hypertension Unspecified essential hypertension ESRD on hemodialysis (CMS/HCC) (HCC) Calcification of abdominal aorta (HCC) Tobacco abuse Tobacco use disorder Nonrheumatic aortic valve stenosis- Primary Paroxysmal A-fib (CMS/HCC) (HCC) Primary hypertension Unspecified essential hypertension Calcification of abdominal aorta (HCC) Tobacco abuse Tobacco use disorder ESRD on hemodialysis (CMS/HCC) (HCC) Paroxysmal A-fib (CMS/HCC) (HCC)- Primary Nonrheumatic aortic valve stenosis Tobacco abuse Tobacco use disorder Alcohol use disorder in remission S/P AVR- Primary documented in this [facility]* Diagnosis Paroxysmal A-fib (CMS/HCC) (HCC)- Primary Nonrheumatic aortic valve stenosis Primary hypertension Unspecified essential hypertension ESRD on hemodialysis (CMS/HCC) (HCC) Calcification of abdominal aorta (HCC) Tobacco abuse Tobacco use disorder Nonrheumatic aortic valve stenosis- Primary Paroxysmal A-fib (CMS/HCC) (HCC) Primary hypertension Unspecified essential hypertension Calcification of abdominal aorta (HCC) Tobacco abuse Tobacco use disorder ESRD on hemodialysis (CMS/HCC) (HCC) Paroxysmal A-fib (CMS/HCC) (HCC)- Primary Nonrheumatic aortic valve stenosis Tobacco abuse Tobacco use disorder Alcohol use disorder in remission S/P AVR- Primary documented in this [facility]* Diagnosis Paroxysmal A-fib (CMS/HCC) (HCC)- Primary Nonrheumatic aortic valve stenosis Primary hypertension Unspecified essential hypertension ESRD on hemodialysis (CMS/HCC) (HCC) Calcification of abdominal aorta (HCC) Tobacco abuse Tobacco use disorder Nonrheumatic aortic valve stenosis- Primary Paroxysmal A-fib (CMS/HCC) (HCC) Primary hypertension Unspecified essential hypertension Calcification of abdominal aorta (HCC) Tobacco abuse Tobacco use disorder ESRD on hemodialysis (CMS/HCC) (HCC) Paroxysmal A-fib (CMS/HCC) (HCC)- Primary Nonrheumatic aortic valve stenosis Tobacco abuse Tobacco use disorder Alcohol use disorder in remission Sacral osteomyelitis (CMS/HCC) (HCC)- Primary ESRD on hemodialysis (CMS/HCC) (HCC) 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, 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) Decubitus ulcer of sacral region, unstageable (HCC) rn long term care (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 documented in this encounter [facility] noteNo assessment information availableWAultman Alliance Community [facility] Work Phone: Evaluation note* Diagnosis Paroxysmal A-fib (CMS/HCC) (HCC)- Primary Nonrheumatic aortic valve stenosis Primary hypertension Unspecified essential hypertension ESRD on hemodialysis (CMS/HCC) (HCC) Calcification of abdominal aorta (HCC) Tobacco abuse Tobacco use disorder Nonrheumatic aortic valve stenosis- Primary Paroxysmal A-fib (CMS/HCC) (HCC) Primary hypertension Unspecified essential hypertension Calcification of abdominal aorta (HCC) Tobacco abuse Tobacco use disorder ESRD on hemodialysis (CMS/HCC) (HCC) Paroxysmal A-fib (CMS/HCC) (HCC)- Primary Nonrheumatic aortic valve stenosis Tobacco abuse Tobacco use disorder Alcohol use disorder in remission Hemoptysis- Primary documented in this [facility]* Diagnosis Paroxysmal A-fib (CMS/HCC) (HCC)- Primary Nonrheumatic aortic valve stenosis Primary hypertension Unspecified essential hypertension ESRD on hemodialysis (CMS/HCC) (HCC) Calcification of abdominal aorta (HCC) Tobacco abuse Tobacco use disorder Nonrheumatic aortic valve stenosis- Primary Paroxysmal A-fib (CMS/HCC) (HCC) Primary hypertension Unspecified essential hypertension Calcification of abdominal aorta (HCC) Tobacco abuse Tobacco use disorder ESRD on hemodialysis (CMS/HCC) (HCC) Paroxysmal A-fib (CMS/HCC) (HCC)- Primary Nonrheumatic aortic valve stenosis Tobacco abuse Tobacco use disorder Alcohol use disorder in remission Hemoptysis- Primary documented in [facility]* Diagnosis Paroxysmal A-fib (CMS/HCC) (HCC)- Primary Nonrheumatic aortic valve stenosis Primary hypertension Unspecified essential hypertension ESRD on hemodialysis (CMS/HCC) (HCC) Calcification of abdominal aorta (HCC) Tobacco abuse Tobacco use disorder Nonrheumatic aortic valve stenosis- Primary Paroxysmal A-fib (CMS/HCC) (HCC) Primary hypertension Unspecified essential hypertension Calcification of abdominal aorta (HCC) Tobacco abuse Tobacco use disorder ESRD on hemodialysis (CMS/HCC) (HCC) Paroxysmal A-fib (CMS/HCC) (HCC)- Primary Nonrheumatic aortic valve stenosis Tobacco abuse Tobacco use disorder Alcohol use disorder in remission Hemoptysis- Primary Hemoptysis Decubitus ulcer of sacral region, stage 4 (HCC) Paroxysmal A-fib (CMS/HCC) (HCC) 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 Nonrheumatic aortic valve stenosis Missed vaccination due to patient refusal Vaccination not carried out because of patient refusal 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HCC) Tracheostomy status Cavitary lesion of lung Complication of tracheostomy (CMS/HCC) (HCC) Sacral osteomyelitis (CMS/HCC) (HCC) Decubitus ulcer of sacral region, unstageable (HCC) ESRD on hemodialysis (CMS/HCC) (HCC) Severe malnutrition (CMS/HCC) (HCC) Nutritional marasmus documented in this encounter [facility]* Diagnosis Paroxysmal A-fib (CMS/HCC) (HCC)- Primary Nonrheumatic aortic valve stenosis Primary hypertension Unspecified essential hypertension ESRD on hemodialysis (CMS/HCC) (HCC) Calcification of abdominal aorta (HCC) Tobacco abuse Tobacco use disorder Nonrheumatic aortic valve stenosis- Primary Paroxysmal A-fib (CMS/HCC) (HCC) Primary hypertension Unspecified essential hypertension Calcification of abdominal aorta (HCC) Tobacco abuse Tobacco use disorder ESRD on hemodialysis (CMS/HCC) (HCC) Paroxysmal A-fib (CMS/HCC) (HCC)- Primary Nonrheumatic aortic valve stenosis Tobacco abuse Tobacco use disorder Alcohol use disorder in remission S/P AVR- Primary documented in this encounter [facility] Discharge instructions* Instructions* Fabiola Huitron RN - 09/15/2021 [employer] Hemodialysis Access: What to Expect at Home You have had a procedure to evaluate your fistula or graft. These instructions will help you to care for the procedure site(s), tell you what you can and cannot do, and give you helpful information when you are at home. Hemodialysis is a way to remove wastes from the blood when your kidneys can no longer do the job. It is not a cure, but it can help you live longer and feel better. It is a lifesaving treatment when you have kidney failure. Hemodialysis is often called dialysis. Your doctor created a place (called an access or fistula) in your arm for your blood to flow in and out of your body during your dialysis sessions. You should always be able to feel blood rushing through the fistula or graft. It feels like a slight vibration when you put your fingers on the skin over the fistula or graft. This feeling is called a thrill or pulse. How can you care for yourself at home? Rest when you feel tired. Getting enough sleep will help you recover. Do not lie on or sleep on thearm with the access. Avoid activities such as washing windows or gardening that put stress on the arm with the access. You may use your arm, but do not lift anything that weighs more than about 5 pounds for 24 hours.. This may include a child, heavy grocery bags, a heavy briefcase or backpack, cat litter or dog food bags, or a vacuum hand fur cleaner. Your dressing will be removed at your next dialysis treatment. If there are stitches, they may be removed by your dialysis nurse after your next dialysis treatment or they may request that you return to Special Procedures for suture removal. If there is a small pad that is dried and crusted, it may be gently soaked and removed with your next dialysis treatment. If your dressing gets soaked with blood, apply pressure, and go to the nearest Emergency room. Soreness or tenderness can last up to a week A small (quarter size) spot with blood from your incision is normal Bruising can last up to two weeks Diet Follow an eating plan that is good for your kidneys. A registered dietitian can help you make a meal plan that is right for you. You may need to limit protein, salt, fluids, and certain foods Other instructions Every day, check your access for a pulse or thrill in the fistula or graft area. A thrill is a vibration. To feel a pulse or thrill, place the first two fingers of your hand over the access. Do not bump your arm. Do not wear tight clothing, jewelry, or anything else that may squeeze the access. Use your other arm to have blood drawn or blood pressure taken. Do not put cream or lotion on or near the access. Make sure all doctors you deal with know you have a vascular access. Follow-up care is a francis part of your treatment and safety. Be sure to make and go to all appointments, and call your doctor if you are having problems. It's also a good idea to know your test resultsand keep a list of the medicines you take. When should you call for help? Call 911 anytime you think you may need emergency care. For example, call if: You passed out (lost consciousness). You have severe trouble breathing. You have sudden chest pain and shortness of breath, or you cough up blood. You have a rapid pulse or heartbeat. Call your doctor now or seek immediate medical care if: Your hand or arm is cold or dark-colored. You have sudden bulging around your access. You have no pulse or thrill in your access, or you hear no sound of blood in your access. Bleeding after dialysis lasts longer than usual. You have severe pain that does not get better after you take pain medicine. You have a fever over 100 F. You have signs of infection, such as: Increased pain, swelling, warmth, or redness. Red streaks leading from the incision. Pus draining from the incision. Swollen lymph nodes in your neck, armpits, or groin. A fever. Watch closely for changes in your health, and be sure to contact your doctor if you have any problems. If you have any questions or problems following your procedure, please call: Special Procedures at . After hours (before 7 am and after 4 pm) call and ask for the Interventional Radiologist python engineer. Where can you learn more? Go to [email or web address] and sign in to your [employer] account. Enter P616 in the Search Health Information box to learn more about Hemodialysis Access: What to Expect at Home. If you do not have an account, please click on the Sign Up Now link. Current as of: August 12, 2016 Content Version: 11.2 5021-1909 [employer]. Care instructions adapted under license by [employer]. If youhave questions about a medical condition or this instruction, always ask your healthcare professional. [employer] disclaims any warranty or liability for your use of this information. documented in this encounterSUMMA Work Phone: Reason for referral (narrative)* Outpatient Procedure (Routine) - Authorized Specialty Diagnoses / Procedures Referred By Contjayant t Referred To Contact [facility] Diagnoses Acute blood loss anemia Rectal bleeding Procedures COLONOSCOPY DIAGNOSTIC COLONOSCOPY FLX DX W/COLLJ SPEC WHEN PFRMD Rudy Painter MD [address] [place] [address] [facility] [address] [place] [address] Referral ID Status Reason Start Date Expiration Date Visits Requested Visits Authorized [id number] Authorized Auto-Generat ed Referral 12/25/2021 12/25/2022 1 1 [facility] for referral (narrative)* Outpatient Procedure (Routine) - Authorized Specialty Diagnoses / Procedures Referred By Contac t Referred To Contact [facility] Diagnoses Other iron deficiency anemia Rectal bleeding Procedures COLONOSCOPY DIAGNOSTIC COLONOSCOPY FLX DX W/COLLJ SPEC WHEN PFRudy Menendez MD [address] [place] [address] [facility] [address] [place] [address] Referral ID Status Reason Start Date Expiration Date Visits Requested Visits Authorized [id number] Authorized Auto-Generat ed Referral 12/30/2021 12/30/2022 1 1 [facility] for referral (narrative)* Consultation (Routine) - Pending Review Specialty Diagnoses / Procedures Referred By Contac t Referred To Contact Wound Care Diagnoses Skin sore Procedures SC OFFICE/OUTPATIENT [facility] MDM 60-74 MINUTES Jese Frank MD [address] [place] [address] [facility] Op Wnd Ostomy Hbo [address] [place] [address] Referral ID Status Reason Start Date Expiration Date Visits Requested Visits Authorized [id number] Pending Review Specialty Services Required 05/01/2023 04/30/2024 1 1 [facility] for referral (narrative)No reason for referral information availableWAultman [facility] Work Phone: Reason for visit Narrative* Auth/Cert (Routine) Specialty Diagnoses / Procedures Referred By Contac t Referred To Contact Diagnoses Atrial flutter, unspecified type (HCC) Procedures . Ramón Romano MD [address] [place] [address] Phone: tel: fax: [facility] [address] [place] [address] Phone: tel: Referral ID Status Reason Start Date Expiration Date Visits Re quested Visits Authorized [id number] 1 1 [facility] Health Assessments Diagnosis Chronic kidney disease, stage V (HCC) Chronic kidney disease, Stage V Diagnosis Preoperative testing Preoperative examination, unspecified Hypertensive kidney disease with CKD stage IV (HCC) Unspecified hypertensive kidney disease with chronic kidney disease stage I through stage IV, or unspecified History of Present Illness * Brandy Lind, RN - 10/17/2020 8:00 AM EST Removed tunneled HD cath in the right chest as ordered. Pt has no complaints or questions. Pt discharged home documented in this encounter Advance Directives Latest Code Status on File Code Status Date Activated Date Inactivated Comments Full Code 10/20/2019 11:35 AM 10/28/2019 4:18 AM Latest Code Status on File Code Status Date Activated Date Inactivated Comments Full Code 10/20/2019 11:35 AM Documents on File Type Date Recorded Patient Edger Machine Helper Expl anation Advance Directive(s) 11/22/2020 11:20 AM Advance Directive(s) 06/12/2020 8:15 AM Advance Directive(s) 03/20/2020 7:16 AM Documents on File Type Date Recorded Patient Edger Machine Helper Expl anation Advance Directive(s) 11/22/2020 11:20 AM Advance Directive(s) 06/12/2020 8:15 AM Advance Directive(s) 03/20/2020 7:16 AM Documents on File Type Date Recorded Patient Edger Machine Helper Expl anation Power of Ampoule Inspector 02/14/2023 1:37 PM Advance Directives and Livin g Will 02/14/2023 1:37 PM Documents on File Type Date Recorded Patient Edger Machine Helper Expl anation Power of Ampoule Inspector 02/14/2023 1:37 PM Advance Directives and Livin g Will 02/14/2023 1:37 PM Latest Code Status on File Code Status Date Activated Date Inactivated Comments Full Code 08/17/2023 12:04 AM 08/17/2023 5:18 PM Latest Code Status on File Code Status Date Activated Date Inactivated Comments Full Code 08/17/2023 12:04 AM 08/17/2023 5:18 PM Date Activated Date Inactivated Comments 08/17/2023 12:04 AM 08/17/2023 5:18 PM Documents on File Type Date Recorded Patient Edger Machine Helper Expl anation Advance Directives and Livin g Will 10/03/2024 11:27 AM Power of Ampoule Inspector 02/14/2023 1:37 PM Advance Directives and Livin g Will 02/14/2023 1:37 PM Date Activated Date Inactivated Comments 10/03/2024 6:19 PM Date Activated Date Inactivated Comments 08/17/2023 12:04 AM 08/17/2023 5:18 PM Documents on File Type Date Recorded Patient Edger Machine Helper Expl anation Advance Directives and Livin g Will 10/03/2024 11:27 AM Power of Ampoule Inspector 02/14/2023 1:37 PM Advance Directives and Livin g Will 02/14/2023 1:37 PM Date Activated Date Inactivated Comments 10/03/2024 6:19 PM Date Activated Date Inactivated Comments 08/17/2023 12:04 AM 08/17/2023 5:18 PM Healthcare Agents on File Name Relationship Healthcare Agent Relationshi p Communication Omar Lillian Child Health Care Agent Healthcare Agents on File Name Relationship Healthcare Agent Relationshi p Communication Omar Lillian Child Health Care Agent Healthcare Agents on File Name Relationship Healthcare Agent Relationshi p Communication Omar Lillian Child Health Care Agent Healthcare Agents on File Name Relationship Healthcare Agent Relationshi p Communication Omar Lillian Child Health Care Agent Date Activated Date Inactivated Comments 11/09/2024 2:04 PM 11/28/2024 5:28 PM Question Answer Comments ICU transfer: Yes Intubation: Yes patient currentl y intubated Date Activated Date Inactivated Comments 10/03/2024 6:19 PM 11/09/2024 2:04 PM Date Activated Date Inactivated Comments 08/17/2023 12:04 AM 08/17/2023 5:18 PM Healthcare Agents on File Name Relationship Healthcare Agent Relationshi p Communication Omar Lillain Child Health Care Agent Healthcare Agents on File Name Relationship Healthcare Agent Relationshi p Communication Omar Lillian Child Health Care Agent Healthcare Agents on File Name Relationship Healthcare Agent Relationshi p Communication Omar Lillian Child Health Care Agent Healthcare Agents on File Name Relationship Healthcare Agent Relationshi p Communication Omar Lillian Child Health Care Agent Healthcare Agents on File Name Relationship Healthcare Agent Relationshi p Communication Omar Lillian Child Health Care Agent Healthcare Agents on File Name Relationship Healthcare Agent Relationshi p Communication Omar Lillian Child Health Care Agent Healthcare Agents on File Name Relationship Healthcare Agent Relationshi p Communication Omar Lillian Child Health Care Agent Healthcare Agents on File Name Relationship Healthcare Agent Relationshi p Communication Omar Lillian Child Health Care Agent Healthcare Agents on File Name Relationship Healthcare Agent Relationshi p Communication Omar Lillian Child Health Care Agent Healthcare Agents on File Name Relationship Healthcare Agent Relationshi p Communication Omar Lillian Child Health Care Agent Healthcare Agents on File Name Relationship Healthcare Agent Relationshi p Communication Omar Lillian Child Health Care Agent Healthcare Agents on File Name Relationship Healthcare Agent Relationshi p Communication Omar Lillian Child Health Care Agent Healthcare Agents on File Name Relationship Healthcare Agent Relationshi p Communication Omar Lillian Child Health Care Agent Healthcare Agents on File Name Relationship Healthcare Agent Relationshi p Communication Omar Lillian Child Health Care Agent Healthcare Agents on File Name Relationship Healthcare Agent Relationshi p Communication Omar Lillian Child Health Care Agent Healthcare Agents on File Name Relationship Healthcare Agent Relationshi p Communication Omar Lillian Child Health Care Agent Documents on File Type Date Recorded Patient Edger Machine Helper Expl anation Power of Ampoule Inspector 01/24/2025 12:29 PM Advance Directives and Livin g Will 10/03/2024 11:27 AM Power of Ampoule Inspector 02/14/2023 1:37 PM Advance Directives and Livin g Will 02/14/2023 1:37 PM Date Activated Date Inactivated Comments 01/19/2025 6:18 AM 02/01/2025 6:04 PM Date Activated Date Inactivated Comments 11/09/2024 2:04 PM 11/28/2024 5:28 PM Question Answer Comments ICU transfer: Yes Intubation: Yes patient currentl y intubated Date Activated Date Inactivated Comments 10/03/2024 6:19 PM 11/09/2024 2:04 PM Date Activated Date Inactivated Comments 08/17/2023 12:04 AM 08/17/2023 5:18 PM Healthcare Agents on File Name Relationship Healthcare Agent Relationshi p Communication Omar Lillian Child Health Care Agent [facility] Care Agent Documents on File Type Date Recorded Patient Edger Machine Helper Expl anation Power of Ampoule Inspector 01/24/2025 12:29 PM Advance Directives and Livin g Will 10/03/2024 11:27 AM Power of Ampoule Inspector 02/14/2023 1:37 PM Advance Directives and Livin g Will 02/14/2023 1:37 PM Date Activated Date Inactivated Comments 01/19/2025 6:18 AM 02/01/2025 6:04 PM Date Activated Date Inactivated Comments 11/09/2024 2:04 PM 11/28/2024 5:28 PM Question Answer Comments ICU transfer: Yes Intubation: Yes patient currentl y intubated Date Activated Date Inactivated Comments 10/03/2024 6:19 PM 11/09/2024 2:04 PM Date Activated Date Inactivated Comments 08/17/2023 12:04 AM 08/17/2023 5:18 PM Healthcare Agents on File Name Relationship Healthcare Agent Relationshi p Communication Omar Lillian Child Health Care Agent [facility] Alternate Health Care Agent Healthcare Agents on File Name Relationship Healthcare Agent Relationshi p Communication Omar Lillian Child Health Care Agent [facility] Alternate Health Care Agent Healthcare Agents on File Name Relationship Healthcare Agent Relationshi p Communication Omar Lillian Child Health Care Agent Toma Mcne[facility] Alternate Health Care Agent Healthcare Agents on File Name Relationship Healthcare Agent Relationshi p Communication Omar Lillian Child Health Care Agent Toma Mcneil [facility] Alternate Health Care Agent Date Activated Date Inactivated Comments 02/21/2025 12:23 AM Date Activated Date Inactivated Comments 01/19/2025 6:18 AM 02/01/2025 6:04 PM Date Activated Date Inactivated Comments 11/09/2024 2:04 PM 11/28/2024 5:28 PM Question Answer Comments ICU transfer: Yes Intubation: Yes patient currentl y intubated Date Activated Date Inactivated Comments 10/03/2024 6:19 PM 11/09/2024 2:04 PM Date Activated Date Inactivated Comments 08/17/2023 12:04 AM 08/17/2023 5:18 PM Healthcare Agents on File Name Relationship Healthcare Agent Relationshi p Communication Omar Lillian Child Health Care Agent Toma Mcneil [facility] Alternate Health Care Agent Date Activated Date Inactivated Comments 02/21/2025 12:23 AM Date Activated Date Inactivated Comments 01/19/2025 6:18 AM 02/01/2025 6:04 PM Date Activated Date Inactivated Comments 11/09/2024 2:04 PM 11/28/2024 5:28 PM Question Answer Comments ICU transfer: Yes Intubation: Yes patient currentl y intubated Date Activated Date Inactivated Comments 10/03/2024 6:19 PM 11/09/2024 2:04 PM Date Activated Date Inactivated Comments 08/17/2023 12:04 AM 08/17/2023 5:18 PM Healthcare Agents on File Name Relationship Healthcare Agent Relationshi p Communication Omar Lillian Child Health Care Agent Toma Mcneil [facility] Alternate Health Care Agent Healthcare Agents on File Name Relationship Healthcare Agent Relationshi p Communication Omar Lillian Child Health Care Agent Toma Mcneil [facility] Alternate Health Care Agent Date Activated Date Inactivated Comments 02/21/2025 12:23 AM 03/05/2025 6:36 PM Healthcare Agents on File Name Relationship Healthcare Agent Farhathi p Communication Omar Lillian Child Health Care Agent Toma Curtis Alternate Health Care Agent Date Activated Date Inactivated Comments 02/21/2025 12:23 AM 03/05/2025 6:36 PM Healthcare Agents on File Name Ruthie Healthcare Agent Farhathi p Communication Omar Lillian Child Health Care Agent Toma Curtis Alternate Health Care Agent Summary Purpose Family History No Family History Records FoundNo Family History Records FoundNo Family History Records FoundNo Family History Records FoundNo Family History Records FoundNo Family History Records Found Reason for Referral Specialty Diagnoses / Procedures Referred By Contac t Referred To Contact Radiology Diagnoses Nicotine dependence, cigarettes, uncomplicated Personal history of nicotine dependence Procedures CT lung screening low dose Fransisco Pineda, FUEL CELL ENGINEER [address] [place] [address] Referral ID Status Reason Start Date Expiration Date V isits Requested Visits Authorized [id number] Authorized 09/07/2023 09/06/2024 1 1 Chief Complaint and Reason for Visit Chief Complaint Admit Date LABWORK February 05, 2025 5:56a m Additional Source Comments Source Comments (unrecognize d section and content) In the event this informatio n is protected by the Federal Confidentiality of Alcohol and Drug Abuse Patient Records regulations: The Federal rules restrict any use of the information to criminally investigate or prosecute any alcohol or drug abuse patient.[facility] the event this information is protected by the Federal Confidentiality of Alcohol and Drug Abuse Patient Records regulations: The Federal rules restrict any use of the information to criminally investigate or prosecute any alcohol or drug abuse patient.[facility] the event this information is protected by the Federal Confidentiality of Alcohol and Drug Abuse Patient Records regulations: The Federal rules restrict any use of the information to criminally investigate or prosecute any alcohol or drug abuse patient.[facility] the event this information is protected by the Federal Confidentiality of Alcohol and Drug Abuse Patient Records regulations: The Federal rules restrict any use of the information to criminally investigate or prosecute any alcohol or drug abuse patient.[facility] the event this information is protected by the Federal Confidentiality of Alcohol and Drug Abuse Patient Records regulations: The Federal rules restrict any use of the information to criminally investigate or prosecute any alcohol or drug abuse patient.[facility] the event this information is protected by the Federal Confidentiality of Alcohol and Drug Abuse Patient Records regulations: The Federal rules restrict any use of the information to criminally investigate or prosecute any alcohol or drug abuse patient.[facility] the event this information is protected by the Federal Confidentiality of Alcohol and Drug Abuse Patient Records regulations: The Federal rules restrict any use of the information to criminally investigate or prosecute any alcohol or drug abuse patient.[facility] the event this information is protected by the Federal Confidentiality of Alcohol and Drug Abuse Patient Records regulations: The Federal rules restrict any use of the information to criminally investigate or prosecute any alcohol or drug abuse patient.[facility] (unrecognized sect ion and content) No Status Records FoundNo Status Records FoundNo Status Records FoundNo Status Records FoundNo Status Records FoundNo Status Records Found INFORMATION SOURCE (unrecogn ized section and content) DATE CREATED AUTHOR 11/26/2020 [facility] DATE CREATED AUTHOR AUTHOR'S ORGANIZ ATION 09/18/[address] [facility] DATE CREATED AUTHOR AUTHOR'S ORGANIZ ATION 12/18/2022 [facility] DATE CREATED AUTHOR AUTHOR'S ORGANIZ ATION 04/16/2024 [facility] DATE CREATED AUTHOR AUTHOR'S ORGANIZ ATION 03/05/2025 [facility] DATE CREATED AUTHOR AUTHOR'S ORGANIZ ATION 03/07/2025 [facility] Continuous Active and Recently Administ ered Medications (unrecognized section and content) Medication Order 09/13/2021 09/14/2021 09/15/2021 0.9 % sodium chloride infusion IntraVENous, at 50 mL/hr, CONTINUOUS, Starting on Wed09/15/21 at 0945, Pre-op (day of surgery) 0955 (New Bag - Prov ider: Marjorie Menjivar RN) PRN Medication Order 09/13/2021 09/14/2021 09/15/2021 lidocaine PF 1 % injection (COMPLETED) ONCE PRN, Starting on Wed09/15/21 at 1048, For 1 dose 1048 (Given - Provid er: Brenton Vicente MD) Scheduled Medication Order 04/29/2023 04/30/2023 05/01/2023 gelatin absorbable (Gelfoam) sponge 1 each (COMPLETED) 1 each, Apply externally, Once, On 05/01/23 at 2020, For 1 dose 2019 (Given - Provid er: Sony Dacosta RN) Scheduled Medication Order 08/15/2023 08/16/2023 08/17/2023 apixaban (Eliquis) tablet 5 mg 5 mg, Oral, 2 times daily, First dose on Wed08/17/23 at 1235, Anticoagulant 1315 (Given - Provid er: Mary Ann Meraz RN) heparin injection 5,000 Units (CANCELED) 5,000 Units, SubCUTAneous, Every 12 hours scheduled (2 times per day), First dose on Wed08/17/23 at 0900 0925 (Given - Provid er: Jayesh Sotomayor RN) metoprolol succinate XL (Toprol-XL) 24 hr tablet 25 mg 25 mg, Oral, Daily, First dose (after last modification) on Wed08/17/23 at 1230, Hold if SBP<90, otherwise give Do not crush or chew. 1230 (Not Given - Pr ovider: Mary Ann Meraz RN - Reason: Other - Comment: Patient requested to hold, as BP close to perameter.) PRN Medication Order 08/15/2023 08/16/2023 08/17/2023 acetaminophen (Tylenol) suppository 650 mg(Linked Group 1) 650 mg, Rectal, Every 6 hours PRN, mild pain (1-3), fever, For temp greater than 100.4 F (38 C), Starting on Wed08/17/23 at 0004, Administer if oral route cannot be used. Maximum dose of acetaminophen is 4000 mg from all sources in 24 hours. acetaminophen (Tylenol) tablet 650 mg(Linked Group 1) 650 mg, Oral, Every 6 hours PRN, mild pain (1-3), fever, For temp greater than 100.4 F (38 C), Starting on Wed08/17/23 at 0004, Maximum dose of acetaminophen is 4000 mg from all sources in 24 hours. LORazepam (Ativan) tablet 0.5 mg 0.5 mg, Oral, Every 6 hours PRN, anxiety, Starting on Wed08/17/23 at 0048 nicotine (Nicoderm, Step 1) 21 MG/24HR patch 1 patch(Linked Group 2) 1 patch, TransDERmal, Administer over 24 Hours, Daily PRN, nicotine withdrawl, Starting on Wed08/17/23 at 0003, For use if smokes 1ppd or greater nicotine (Nicoderm, Step 2) 14 MG/24HR patch 1 patch(Linked Group 2) 1 patch, TransDERmal, Administer over 24 Hours, Daily PRN, nicotine withdrawl, Starting on Wed08/17/23 at 0003, For use if smokes 1/2 - 1ppd nicotine (Nicoderm, Step 3) 7 MG/24HR patch 1 patch(Linked Group 2) 1 patch, TransDERmal, Administer over 24 Hours, Daily PRN, nicotine withdrawl, Starting on Wed08/17/23 at 0003, For use if smokes less than 1/2 ppd nicotine polacrilex (Nicorette) gum 2 mg(Linked Group 2) 2 mg, Mouth/Throat, Every 1 hour PRN, smoking cessation, Starting on Wed08/17/23 at 0003 ondansetron (Zofran) injection 4 mg(Linked Group 3) 4 mg, IntraVENous, Every 6 hours PRN, nausea, vomiting, Starting on Wed08/17/23 at 0004, 1st Line. Give IV if patient is unable to take orally. If inadequate response within 60 minutes, proceed to next-line agent or contact provider if no further options ordered. ondansetron ODT (Zofran-ODT) disintegrating tablet 4 mg(Linked Group 3) 4 mg, Oral, Every 8 hours PRN, nausea, vomiting, Starting on Wed08/17/23 at 0004, 1st Line. If inadequate response within 60 minutes, proceed to next-line agent or contact provider if no further options ordered. Patient should allow tablet to dissolve on tongue. Do not remove from blister pack until just before administering. polyethylene glycol (PEG) 3350 (Miralax) packet 17 g 17 g, Oral, Daily PRN, constipation, Starting on Wed08/17/23 at 0004, 1st line for treatment of constipation - give scheduled if no bowel movement in past 24 hours. Linked Groups Order Group 1: acetaminophen (Tylenol) tablet 650 mgJump to med 650 mg, Oral, Every 6 hours PRN, mild pain (1-3), fever, For temp greater than 100.4 F (38 C), Starting on Wed08/17/23 at 0004, Maximum dose of acetaminophen is 4000 mg from all sources in 24 hours. Or acetaminophen (Tylenol) suppository 650 mgJump to med 650 mg, Rectal, Every 6 hours PRN, mild pain (1-3), fever, For temp greater than 100.4 F (38 C), Starting on Wed08/17/23 at 0004, Administer if oral route cannot be used. Maximum dose of acetaminophen is 4000 mg from all sources in 24 hours. Group 2: nicotine (Nicoderm, Step 1) 21 MG/24HR patch 1 patchJump to med 1 patch, TransDERmal, Administer over 24 Hours, Daily PRN, nicotine withdrawl, Starting on Wed08/17/23 at 0003, For use if smokes 1ppd or greater Or nicotine (Nicoderm, Step 2) 14 MG/24HR patch 1 patchJump to med 1 patch, TransDERmal, Administer over 24 Hours, Daily PRN, nicotine withdrawl, Starting on Wed08/17/23 at 0003, For use if smokes 1/2 - 1ppd Or nicotine (Nicoderm, Step 3) 7 MG/24HR patch 1 patchJump to med 1 patch, TransDERmal, Administer over 24 Hours, Daily PRN, nicotine withdrawl, Starting on Wed08/17/23 at 0003, For use if smokes less than 1/2 ppd Or nicotine polacrilex (Nicorette) gum 2 mgJump to med 2 mg, Mouth/Throat, Every 1 hour PRN, smoking cessation, Starting on Wed08/17/23 at 0003 Group 3: ondansetron ODT (Zofran-ODT) disintegrating tablet 4 mgJump to med 4 mg, Oral, Every 8 hours PRN, nausea, vomiting, Starting on Wed08/17/23 at 0004, 1st Line. If inadequate response within 60 minutes, proceed to next-line agent or contact provider if no further options ordered. Patient should allow tablet to dissolve on tongue. Do not remove from blister pack until just before administering. Or ondansetron (Zofran) injection 4 mgJump to med 4 mg, IntraVENous, Every 6 hours PRN, nausea, vomiting, Starting on Wed08/17/23 at 0004, 1st Line. Give IV if patient is unable to take orally. If inadequate response within 60 minutes, proceed to next-line agent or contact provider if no further options ordered. Scheduled Medication Order 01/30/2025 01/31/2025 02/01/2025 ampicillin-sulbactam (Unasyn) 3,000 mg in sodium chloride 0.9 % 100 mL IVPB (Add-Reynolds) 3,000 mg, IntraVENous, at 200 mL/hr, Administer over 30 Minutes, Every 24 hours, First dose on Brigid 01/25/25 at 1700, ADD-Reynolds bag, Suspected Indication (Select all that apply): Bone and Joint Infection 1838 (New Bag - Provider: Miriam Reza, SWEETIE)2012 (Stopped - Provider: Casandra Rose RN) 1645 (New Bag - Provider: Angella Ley RN)1715 (Due: Stopped - Provider: Angella Ley RN) 1700 (Canceled Entry - Provider: Automatic Discharge Provider - Comment: Automatically canceled at discontinue of medication order) ampicillin-sulbactam (Unasyn) 3,000 mg in sodium chloride 0.9 % 100 mL IVPB (Add-Reynolds) (CANCELED) 3,000 mg, IntraVENous, at 200 mL/hr, Administer over 30 Minutes, Every 24 hours, First dose on Wed02/01/25 at 1030, For 13 days, ADD-Reynolds bag, Suspected Indication (Select all that apply): Skin and Soft Tissue Infection 1051 (New Bag - Provider: Kristine Donato RN)1136 (Stopped - Provider: Kristine Donato RN) chlorhexidine (Hibiclens) 4 % solution Topical, Daily, First dose on Wed02/01/25 at 1400 1341 (Given - Provider: Kristine Donato RN) collagenase 250 UNIT/GM ointment Topical, Daily, First dose on Wed01/19/25 at 1400, Nursing staff to perform dressing change: Sacrum: Pressure Injury Stage 4 (POA) -cleanse with NS, apply santyl followed by Maxorb, cover with dry clean dressing daily and PRN. -Envella bed -waffle chair cushion -Q2hr/PRN turns -glide sheets for T&R -continence checks Q1-2 Hrs/PRN 0900 (Not Given - Provider: Miriam Reza RN - Reason: Medication not available) 0900 (Canceled Entry - Provider: Automatic Discharge Provider - Comment: Automatically canceled at discontinue of medication order) 0816 (Given - Provider: Kristine Donato RN) hydrOXYzine HCl (Atarax) tablet 25 mg (COMPLETED) 25 mg, Oral, Once, On Wed02/01/25 at 0500, For 1 dose 0528 (Given - Provider: Leilani Jaimes RN) Lidocaine 4 % patch 1 patch 1 patch, Topical, Administer over 12 Hours, Daily, First dose on Wed01/19/25 at 0900, Apply patch to L chest. Patch may remain in place for up to 12 hours in any 24 hour period. 1038 (Medication Applied - Provider: Miriam Reza RN)2204 (Medication Removed - Provider: Casandra Rose RN) 0900 (Canceled Entry - Provider: Automatic Discharge Provider - Comment: Automatically canceled at discontinue of medication order) 0815 (Medication Applied - Provider: Kristine Donato RN)1603 (Due: Medication Removed - Provider: Automatic Discharge Provider - Comment: Time automatically adjusted from order being discontinued) metoprolol tartrate (Lopressor) tablet 25 mg 25 mg, Per G Tube, 2 times daily, First dose (after last modification) on Wed01/29/25 at 2100 1038 (Given - Provider: Miriam Reza, SWEETIE)2023 (Given - Provider: Casandra Rose, SWEETIE) 1529 (Not Given - Provider: Angella Ley RN - Reason: Other - Comment: dialysis)2041 (Given - Provider: Leilani Jaimes RN) 0815 (Given - Provider: Kristine Donato RN) midodrine (Proamatine) tablet 10 mg 10 mg, Oral, 2 times daily, First dose on Wed01/26/25 at 2100 1038 (Given - Provider: Miriam Reza RN)2023 (Given - Provider: Casandra Rose RN) 1529 (Not Given - Provider: Angella Ley RN - Reason: Other - Comment: dialysis)2042 (Given - Provider: Leilani Jaimes RN) 0815 (Given - Provider: Kristine Donato RN) sodium chloride 0.9% (NS) flush 10 mL 10 mL, IntraCATHeter, Every 12 hours, First dose on Wed01/31/25 at 1615, Administer to each lumen. Line Care. Use 10 mL or larger syringe. 1615 (Canceled Entry - Provider: Automatic Discharge Provider - Comment: Automatically canceled at discontinue of medication order) 0321 (Given - Provider: Leilani Jaimes RN)1615 (Canceled Entry - Provider: Automatic Discharge Provider - Comment: Automatically canceled at discontinue of medication order) warfarin (Coumadin) tablet 0.5 mg (COMPLETED) 0.5 mg, Oral, Once Warfarin, On Wed01/31/25 at 1700, For 1 dose 1645 (Given - Provider: Angella Ley RN) warfarin (Coumadin) tablet 0.5 mg 0.5 mg, Oral, Once Warfarin, On Wed02/01/25 at 1700, For 1 dose 1700 (Canceled Entry - Provider: Automatic Discharge Provider - Comment: Automatically canceled at discontinue of medication order) Continuous Medication Order 01/30/2025 01/31/2025 02/01/2025 sodium chloride 0.9 % infusion 20 mL/hr, IntraVENous, Continuous, Starting on Wed01/23/25 at 1315 1838 (New Bag - Provider: Miriam Reza RN) PRN Medication Order 01/30/2025 01/31/2025 02/01/2025 acetaminophen (Tylenol) tablet 1,000 mg 1,000 mg, Oral, Every 8 hours PRN, mild pain (1-3), fever, Starting on Wed01/19/25 at 0945, Maximum dose of acetaminophen is 4000 mg from all sources in 24 hours. collagenase 250 UNIT/GM ointment Topical, PRN, Wound care, Starting on Wed01/19/25 at 1256, Nursing staff to perform dressing change: Sacrum: Pressure Injury Stage 4 (POA) -cleanse with NS, apply santyl followed by Maxorb, cover with dry clean dressing daily and PRN. -Envella bed -waffle chair cushion -Q2hr/PRN turns -glide sheets for T&R -continence checks Q1-2 Hrs/PRN dextrose 5 % infusion 100 mL/hr, IntraVENous, PRN, Blood sugar less than 70mg/dL, Starting on Wed01/21/25 at 0605, Start infusion following administration of dextrose 50% or glucagon. dextrose 50 % solution 12.5 g 12.5 g, IntraVENous, PRN, low blood sugar, Blood glucose less than 70 mg/dL and patient NOT ALERT or NPO., Starting on Wed01/21/25 at 0605, If patient does not respond within 5 minutes, repeat dose x1. Start D5W at 100 mL/hour until ordering provider can be reached. Repeat blood glucose in 15 minutes. If blood glucose is less than 70 mg/dL, repeat treatment and recheck blood glucose in 15 minutes x2. If using Glucostabilizer, dose as instructed per system. glucagon (human recombinant) injection 1 mg 1 mg, IntraMUSCular, PRN, low blood sugar, Blood glucose less than 70 mg/dL and patient NOT ALERT or NPO and does not have IV access., Starting on Wed01/21/25 at 0605, After administration, attempt intravenous access and start D5W at 100 mL/hr. Repeat blood glucose in 15 minutes x2 and notify provider. glucose oral gel 15 g 15 g, Oral, As needed, low blood sugar, Starting on Wed01/21/25 at 0605, If blood glucose less than 50 mg/dL and patient ALERT and NOT NPO, give 2 tubes glucose gel. If blood glucose less than 70 mg/dL and patient ALERT and NOT NPO, give 1 tube glucose gel. Repeat blood glucose in 15 minutes. If blood glucose is less than 70 mg/dL, repeat treatment and recheck blood glucose in 15 minutes x2 and notify provider. ipratropium-albuterol (Duo-Neb) 0.5-2.5 mg/3 mL nebulizer solution 3 mL 3 mL, Nebulization, As needed, wheezing, Starting on 01/27/25 at 0715 lidocaine PF (Xylocaine) 1 % injection (COMPLETED) As needed, Starting on Wed01/30/25 at 1407, Intraprocedure 1407 (Given - Provider: Jun Borrero MD) lidocaine-EPINEPHrine (Xylocaine W/EPI) 1 %-1:[id number] injection (COMPLETED) As needed, Starting on Wed01/30/25 at 1410, Intraprocedure 1410 (Given - Provider: Jun Borrero MD) melatonin tablet 5 mg 5 mg, Per G Tube, Nightly PRN, insomnia, Starting on Wed01/19/25 at 0613 metoprolol tartrate (Lopressor) injection 5 mg 5 mg, IntraVENous, Every 5 min PRN, tachycardia, HR > 160, Starting on Brigid 01/25/25 at 1539 naloxone (Narcan) injection 0.4 mg 0.4 mg, IntraVENous, Every 5 min PRN, opioid reversal, respiratory depression, over sedation, RR <10, pinpoint pupils, Starting on Wed01/19/25 at 0614, +++notify python engineer provider if used+++ oxyCODONE (Roxicodone) immediate release tablet 10 mg(Linked Group 1) 10 mg, Oral, Every 6 hours PRN, severe pain (7-10), Starting on Wed01/23/25 at 1312 1038 (Given - Provider: Miriam Reza RN) oxyCODONE (Roxicodone) immediate release tablet 5 mg(Linked Group 1) 5 mg, Oral, Every 6 hours PRN, moderate pain (4-6), Starting on Wed01/23/25 at 1312 1038 (See Alternative - Provider: Miriam Reza RN) prochlorperazine (Compazine) injection 5 mg 5 mg, IntraVENous, Every 6 hours PRN, nausea, vomiting, Starting on Wed01/21/25 at 1810 sodium chloride 0.9 % infusion 250 mL/hr, IntraVENous, Administer over 10 Minutes, As needed, For use in priming line prior to transfusion (prime via gravity) and flush line post transfusion, Starting on Brigid 01/25/25 at 0348, For 1 dose, For use in priming line prior to transfusion (prime via gravity) and flush line post transfusion ONLY. Discontinue once line has been cleared of remaining blood product. sodium chloride 0.9 % infusion 250 mL/hr, IntraVENous, Administer over 10 Minutes, As needed, For use in priming line prior to transfusion (prime via gravity) and flush line post transfusion, Starting on Wed01/26/25 at 0314, For 1 dose, For use in priming line prior to transfusion (prime via gravity) and flush line post transfusion ONLY. Discontinue once line has been cleared of remaining blood product. sodium chloride 0.9% (NS) flush 10 mL 10 mL, IntraCATHeter, PRN, line care, before blood draws, before and after infusion or medication administration, Starting on Wed01/31/25 at 1610, Use 10 mL or larger syringe. No Frequency Medication Order 01/30/2025 01/31/2025 02/01/2025 gelatin absorbable (Gelfoam) 100 sponge - Pyxis ADS Override Pull (COMPLETED) Starting on Wed01/31/25 at 1050, For 1 dose, Terri Hutchison: cabinet override 1121 (Given - Provider: Ailyn Hutchison RN) Linked Groups Order Group 1: oxyCODONE (Roxicodone) immediate release tablet 5 mgJump to med 5 mg, Oral, Every 6 hours PRN, moderate pain (4-6), Starting on Wed01/23/25 at 1312 Or oxyCODONE (Roxicodone) immediate release tablet 10 mgJump to med 10 mg, Oral, Every 6 hours PRN, severe pain (7-10), Starting on Wed01/23/25 at 1312 Scheduled Medication Order 03/03/2025 03/04/2025 03/05/2025 B complex-vitamin C-folic acid (Nephrocaps) capsule 1 capsule 1 capsule, Oral, Daily, First dose on Wed02/21/25 at 0900 0825 (Given - Provider: Shasta Sinclair RN) 0832 (Given - Provider: Ochoa Johnson, SWEETIE) 0913 (Given - Provider: Tyson Freeman, SWEETIE) dextrose 50 % solution 50 mL (COMPLETED) 50 mL, IntraVENous, Once, On Wed03/05/25 at 0500, For 1 dose 0542 (Given - Provider: Rosio Bey, SWEETIE) insulin regular (HumuLIN R,NovoLIN R) injection 10 Units (COMPLETED) 10 Units, IntraVENous, Once, On Wed03/05/25 at 0530, For 1 dose 0542 (Given - Provider: Rosio Bey RN) metoprolol tartrate (Lopressor) tablet 25 mg 25 mg, Oral, 2 times daily, First dose on Wed02/21/25 at 0030 1351 (Given - Provider: Shasta Sinclair RN - Comment: pt going to dialysis; ok to give now per dr hurtado)2119 (Given - Provider: Rudolph Najera, SWEETIE) 0831 (Given - Provider: Ochoa Johnson, SWEETIE)2123 (Given - Provider: Rosio Bey, SWEETIE) 0913 (Given - Provider: Tyson Freeman, SWEETIE) pantoprazole (ProtoNix) EC tablet 40 mg 40 mg, Oral, 2 times daily before meals, First dose (after last modification) on Wed02/28/25 at 1600, Do not crush, chew, or split. 0824 (Given - Provider: Shasta Sinclair RN)1659 (Given - Provider: Shasta Sinclair RN) 0614 (Given - Provider: Rudolph Najera, SWEETIE)1612 (Not Given - Provider: Liv Grimaldo RN - Reason: Patient/family refused) 0549 (Given - Provider: Rosio Bey RN)1600 (Canceled Entry - Provider: Automatic Discharge Provider - Comment: Automatically canceled at discontinue of medication order) piperacillin-tazobactam (Zosyn) 2,250 mg in sodium chloride 0.9 % 50 mL IVPB Mini-Bag Plus 2,250 mg, IntraVENous, at 16.67 mL/hr, Administer over 3 Hours, Every 6 hours, First dose (after last modification) on Brigid 03/01/25 at 1400, Mini-Bag Plus bag, Suspected Indication (Select all that apply): Aspiration Pneumonia 0019 (Stopped - Provider: Ave Arnold RN)0213 (New Bag - Provider: Ave Arnold RN)0530 (Stopped - Provider: Ave Arnold RN)0825 (New Bag - Provider: Shasta Sinclair RN)1340 (Stopped - Provider: Shasta Sinclair RN)1351 (New Bag - Provider: Shasta Sinclair RN)1819 (Stopped - Provider: Shasta Sinclair RN)2120 (New Bag - Provider: Rudolph Najera RN) 0018 (Stopped - Provider: Rudolph Najera RN)0158 (New Bag - Provider: Rudolph Najera RN)0441 (Stopped - Provider: Rudolph Najera RN)0831 (New Bag - Provider: Ochoa Johnson RN)1141 (Stopped - Provider: Liv Grimaldo RN)1611 (New Bag - Provider: Liv Grimaldo RN)2115 (Stopped - Provider: Rosio Bey RN)2125 (New Bag - Provider: Rosio Bey RN) 0025 (Stopped - Provider: Rosio Bey RN)0438 (New Bag - Provider: Rosio Bey RN)0739 (Stopped - Provider: Tyson Freeman RN)1034 (New Bag - Provider: Tyson Freeman, SWEETIE)1425 (Stopped - Provider: Tyson Freeman, SWEETIE)1600 (Canceled Entry - Provider: Automatic Discharge Provider - Comment: Automatically canceled at discontinue of medication order) QUEtiapine (SEROquel) tablet 25 mg 25 mg, Oral, Nightly, First dose (after last modification) on 02/24/25 at 2200 2120 (Given - Provider: Rudolph Najera RN) 212 (Given - Provider: Rosio Bey, SWEETIE) sevelamer carbonate (Renvela) tablet 800 mg 800 mg, Oral, 3 times daily with meals, First dose on Wed02/21/25 at 0800, Do not crush, chew, or split. 0835 (Not Given - Provider: Shasta Sinclair RN - Reason: Patient/family refused)1351 (Given - Provider: Shasta Sinclair RN)1700 (Not Given - Provider: Shasta Sinclair RN - Reason: Patient/family refused) 0832 (Given - Provider: Ochoa Johnson RN)1301 (Not Given - Provider: Liv Grimaldo RN - Reason: Patient/family refused)1612 (Not Given - Provider: Liv Grimaldo RN - Reason: Patient/family refused) 0913 (Given - Provider: Tyson Freeman RN)1305 (Not Given - Provider: Tyson Freeman RN - Reason: Patient/family refused)1700 (Canceled Entry - Provider: Automatic Discharge Provider - Comment: Automatically canceled at discontinue of medication order) sodium zirconium cyclosilicate (Lokelma) packet 5 g 5 g, Oral, Daily, First dose (after last modification) on 03/03/25 at 0315, Empty entire contents of packet(s) into 45 mL water. Stir well and administer immediately. If powder remains, rinse glass with water and administer. Administer other meds at least 2 hours before or after dose to prevent decreases in their absorption. 0403 (Given - Provider: Ave Arnold RN) 0833 (Given - Provider: Ochoa Johnson RN) 0913 (Given - Provider: Tyson Freeman RN) warfarin (Coumadin) tablet 6 mg (COMPLETED) 6 mg, Oral, Once Warfarin, On 03/03/25 at 1700, For 1 dose 1659 (Given - Provider: Shasta Sinclair RN) warfarin (Coumadin) tablet 7.5 mg (COMPLETED) 7.5 mg, Oral, Once Warfarin, On 03/04/25 at 1700, For 1 dose 1612 (Given - Provider: Liv Grimaldo RN) warfarin (Coumadin) tablet 7.5 mg (COMPLETED) 7.5 mg, Oral, Once Warfarin, On 03/05/25 at 1545, For 1 dose 1546 (Given - Provider: Tyson Freeman RN) Continuous Medication Order 03/03/2025 03/04/2025 03/05/2025 heparin 25,000 units in dextrose 5% 250mL infusion (premix) (CANCELED) 5-30 Units/kg/hr 56.7 kg (2.835-17.01 mL/hr, rounded to 2.8-17 mL/hr), IntraVENous, Continuous, Starting on Wed02/21/25 at 1030, HIGH Dose Heparin Weight Based Dosing (VTE/DVT/PE) >>>>Initial dose: 18 units/kg/hr<<<< Subsequent dosing: aPTT < 30 Heparin Full re-bolus Increase infusion by 2 units/kg/hr - notify prescriber; aPTT 30-45.9 Heparin Half re-bolus Increase infusion by 1 unit/kg/hr; aPTT 46-80.9 No bolus No change; aPTT 81-100.9 Hold heparin for 60 min Decrease infusion by 1 unit/kg/hr; aPTT > 100.9 Hold heparin for 60 min Decrease infusion by 2 units/kg/hr - notify prescriber; Check aPTT: 6 hours after initiation and 6 hours after every dose change - every 12 hrs x 1 day after 2 consecutive therapeutic aPTT - daily after every 12 hrs x 1 day is complete. Contact provider for further directions if: a) The patient has reached maximum dose and has not achieved the goal of therapy or b) If this medication is held outside of ordered parameters 0125 (New Bag - Provider: Ave Arnold RN)0236 (Rate/Dose Verify - Provider: Ave Arnold RN)0707 (New Bag - Provider: Ave Arnold RN)1501 (Rate/Dose Verify - Provider: Shasta Sinclair, RN)1914 (Handoff - Provider: Shasta Sinclair RN) 0203 (Rate/Dose Verify - Provider: Rudolph Najera RN)0204 (New Bag - Provider: Rudolph Najera RN)0727 (Handoff - Provider: Ochoa Johnson, RN)1032 (Handoff - Provider: Ochoa Johnson, SWEETIE)1920 (Handoff - Provider: Susanna Jackson RN) 0222 (New Bag - Provider: Rosio Bey RN)0433 (Rate/Dose Change - Provider: Rosio Bey RN)0719 (Stopped - Provider: Susanna Jackson RN) PRN Medication Order 03/03/2025 03/04/2025 03/05/2025 acetaminophen (Tylenol) suppository 650 mg(Linked Group 1) 650 mg, Rectal, Every 6 hours PRN, fever, For temp greater than 100.4 F (38 C), Starting on Wed02/21/25 at 0020, Administer if oral route cannot be used. Maximum dose of acetaminophen is 4000 mg from all sources in 24 hours. acetaminophen (Tylenol) tablet 650 mg(Linked Group 1) 650 mg, Oral, Every 6 hours PRN, mild pain (1-3), fever, For temp greater than 100.4 F (38 C), Starting on Wed02/21/25 at 0020, Maximum dose of acetaminophen is 4000 mg from all sources in 24 hours. albuterol (2.5 MG/3ML) 0.083% nebulizer solution 2.5 mg 2.5 mg, Nebulization, Every 4 hours PRN, wheezing, shortness of breath, Starting on Wed02/21/25 at 0020 heparin injection 2,268 Units (CANCELED) 2,268 Units (40 Units/kg 56.7 kg), IntraVENous, As needed, heparin dosing algorithm, Starting on Wed02/21/25 at 1022, Half dose re-bolus based on pharmacy algorithm 0431 (Given - Provid er: Rosio Bey RN) ipratropium-albuterol (Duo-Neb) 0.5-2.5 mg/3 mL nebulizer solution 3 mL 3 mL, Nebulization, Every 4 hours PRN, wheezing, shortness of breath, Starting on Wed02/21/25 at 0713 0755 (Given - Provider: Lazaro Anaya) melatonin tablet 3 mg 3 mg, Oral, Nightly PRN, sleep, Starting on Wed02/21/25 at 0023 naloxone (Narcan) injection 0.4 mg 0.4 mg, IntraVENous, Every 5 min PRN, opioid reversal, respiratory depression, Starting on Wed02/21/25 at 0024, +++ For RR <10, pinpoint pupils, over sedation for opioid reversal - MUST notify python engineer provider immediately after first dose, may give IM or SQ if no IV access +++ ondansetron (Zofran) injection 4 mg(Linked Group 2) 4 mg, IntraVENous, Every 6 hours PRN, nausea, vomiting, Starting on Wed02/21/25 at 0020, 1st Line. Give IV if patient is unable to take orally. If inadequate response within 60 minutes, proceed to next-line agent or contact provider if no further options ordered. ondansetron ODT (Zofran-ODT) disintegrating tablet 4 mg(Linked Group 2) 4 mg, Oral, Every 8 hours PRN, nausea, vomiting, Starting on Wed02/21/25 at 0020, 1st Line. If inadequate response within 60 minutes, proceed to next-line agent or contact provider if no further options ordered. Patient should allow tablet to dissolve on tongue. Do not remove from blister pack until just before administering. oxyCODONE (Roxicodone) immediate release tablet 5 mg 5 mg, Oral, Every 12 hours PRN, moderate pain (4-6), severe pain (7-10), Starting on Brigid 03/01/25 at 0954 0552 (Given - Provider: Ro Sutton RN - Comment: back, all over per patient) 0158 (Given - Provider: Rosio Bey RN) polyethylene glycol (PEG) 3350 (Miralax) packet 17 g 17 g, Oral, Daily PRN, constipation, Starting on Wed02/21/25 at 0020, 1st line for treatment of constipation - give scheduled if no bowel movement in past 24 hours. potassium chloride CR (Klor-Con M10) ER tablet 40 mEq 40 mEq, Oral, Daily PRN, Administer daily for serum potassium <3.5, Starting on Wed02/21/25 at 0142, Best given with food and plenty of water to minimize gastric irritation. Do not crush or chew. Linked Groups Order Group 1: acetaminophen (Tylenol) tablet 650 mgJump to med 650 mg, Oral, Every 6 hours PRN, mild pain (1-3), fever, For temp greater than 100.4 F (38 C), Starting on Wed02/21/25 at 0020, Maximum dose of acetaminophen is 4000 mg from all sources in 24 hours. Or acetaminophen (Tylenol) suppository 650 mgJump to med 650 mg, Rectal, Every 6 hours PRN, fever, For temp greater than 100.4 F (38 C), Starting on Wed02/21/25 at 0020, Administer if oral route cannot be used. Maximum dose of acetaminophen is 4000 mg from all sources in 24 hours. Group 2: ondansetron ODT (Zofran-ODT) disintegrating tablet 4 mgJump to med 4 mg, Oral, Every 8 hours PRN, nausea, vomiting, Starting on Wed02/21/25 at 0020, 1st Line. If inadequate response within 60 minutes, proceed to next-line agent or contact provider if no further options ordered. Patient should allow tablet to dissolve on tongue. Do not remove from blister pack until just before administering. Or ondansetron (Zofran) injection 4 mgJump to med 4 mg, IntraVENous, Every 6 hours PRN, nausea, vomiting, Starting on Wed02/21/25 at 0020, 1st Line. Give IV if patient is unable to take orally. If inadequate response within 60 minutes, proceed to next-line agent or contact provider if no further options ordered. Care Teams (unrecognized sec tion and content) Satellite Communications Engineer Relationship Specialty Start Date End Date Daryn Loomis MD [address] [place] [address] [place] [phone] PCP - General Family Medicine 12/18/20 Satellite Communications Engineer Relationship Specialty Start Date End Date Candido Starr MD [address] [phone] Nephrology 02/22/20 Satellite Communications Engineer Relationship Specialty Start Date End Date Candido Starr MD [address] [phone] Nephrology 02/22/20 Satellite Communications Engineer Relationship Specialty Start Date End Date Candido Starr MD [address] [phone] Nephrology 02/22/20 Satellite Communications Engineer Relationship Specialty Start Date End Date Daryn Loomis MD [facility] [address] [facility] [place] [address] PCP - General 12/18/20 Satellite Communications Engineer Relationship Specialty Start Date End Date Daryn Loomis MD [facility] [place] [address] PCP - General 12/18/20 Satellite Communications Engineer Relationship Specialty Start Date End Date Daryn Loomis MD [facility] [place] [address] PCP - General 12/18/20 Satellite Communications Engineer Relationship Specialty Start Date End Date Daryn Loomis MD [facility] [place] [address] PCP - General 12/18/20 Satellite Communications Engineer Relationship Specialty Start Date End Date Daryn Loomis MD [facility] [place] [address] PCP - General 12/18/20 Satellite Communications Engineer Relationship Specialty Start Date End Date Daryn Loomis MD [facility] [place] [address] PCP - General 12/18/20 Satellite Communications Engineer Relationship Specialty Start Date End Date Daryn Loomis MD [facility] [place] [address] PCP - General 12/18/20 Satellite Communications Engineer Relationship Specialty Start Date End Date Daryn Loomis MD [address] [place], [place] [address] [place] [phone] PCP - General 12/18/20 Satellite Communications Engineer Relationship Specialty Start Date End Date Candido Starr MD [address] [place] [phone] Nephrology 02/22/20 Satellite Communications Engineer Relationship Specialty Start Date End Date Candido Starr MD [address] [place] [phone] Nephrology 02/22/20 Satellite Communications Engineer Relationship Specialty Start Date End Date Daryn Loomis MD [address] [place] [phone] PCP - General 12/18/20 Satellite Communications Engineer Relationship Specialty Start Date End Date Leilani Troncoso [address] [place] [phone] PCP - General Family Medicine 10/03/24 Satellite Communications Engineer Relationship Specialty Start Date End Date Emely Leilani [address] [place] [phone] PCP - General Family Medicine 10/03/24 Satellite Communications Engineer Relationship Specialty Start Date End Date Leilani Troncoso [address] [place] [phone] PCP - General Family Medicine 10/03/24 Satellite Communications Engineer Relationship Specialty Start Date End Date Leilani Troncoso [address] [place] [phone] PCP - General Family Medicine 10/03/24 Satellite Communications Engineer Relationship Specialty Start Date End Date Emely, Leilani [address] [place] [address] PCP - General Family Medicine 10/03/24 Satellite Communications Engineer Relationship Specialty Start Date End Date Leilani Troncoso [address], [phone] PCP - General Family Medicine 10/03/24 Satellite Communications Engineer Relationship Specialty Start Date End Date Leilani Troncoso [address], [phone] PCP - General Family Medicine 10/03/24 Satellite Communications Engineer Relationship Specialty Start Date End Date Leilani Troncoso [address], [phone] PCP - General Family Medicine 10/03/24 Satellite Communications Engineer Relationship Specialty Start Date End Date Leilani Troncoso [address], [phone] PCP - General Family Medicine 10/03/24 Satellite Communications Engineer Relationship Specialty Start Date End Date Leilani Troncoso [address], [phone] PCP - General Family Medicine 10/03/24 Satellite Communications Engineer Relationship Specialty Start Date End Date Leilani Troncoso [address], [phone] PCP - General Family Medicine 10/03/24 Satellite Communications Engineer Relationship Specialty Start Date End Date Leilani Troncoso [address] [place] [phone] PCP - General Family Medicine 10/03/24 Satellite Communications Engineer Relationship Specialty Start Date End Date Leilani Troncoso [address] [place] [phone] PCP - General Family Medicine 10/03/24 Satellite Communications Engineer Relationship Specialty Start Date End Date Leilani Troncoso [address] [place] [address] PCP - General Family Medicine 10/03/24 Satellite Communications Engineer Relationship Specialty Start Date End Date Leilani Troncoso [address] [place] [address] PCP - General Family Medicine 10/03/24 Satellite Communications Engineer Relationship Specialty Start Date End Date Leilani Troncoso [address] [place] [phone] PCP - General Family Medicine 10/03/24 Satellite Communications Engineer Relationship Specialty Start Date End Date Leilani Troncoso [address] [place] [phone] PCP - General Family Medicine 10/03/24 Satellite Communications Engineer Relationship Specialty Start Date End Date Leilani Troncoso [address] [place] [phone] PCP - General Family Medicine 10/03/24 Satellite Communications Engineer Relationship Specialty Start Date End Date Leilani Troncoso [address] [place] [phone] PCP - General Family Medicine 10/03/24 Satellite Communications Engineer Relationship Specialty Start Date End Date Leilani Troncoso [address] [place] [phone] PCP - General Family Medicine 10/03/24 Satellite Communications Engineer Relationship Specialty Start Date End Date Leilani Troncoso [address] [place] [phone] PCP - General Family Medicine 10/03/24 Satellite Communications Engineer Relationship Specialty Start Date End Date Leilani Troncoso [address], [phone] PCP - General Family Medicine 10/03/24 Satellite Communications Engineer Relationship Specialty Start Date End Date Leilani Troncoso [address], [phone] PCP - General Family Medicine 10/03/24 Satellite Communications Engineer Relationship Specialty Start Date End Date Leilani Troncoso [address], [phone] PCP - General Family Medicine 10/03/24 Satellite Communications Engineer Relationship Specialty Start Date End Date Leilani Troncoso [address] [place] [phone] PCP - General Family Medicine 10/03/24 Satellite Communications Engineer Relationship Specialty Start Date End Date Leilani Troncoso [address], [phone] PCP - General Family Medicine 10/03/24 Team Status: Inactive Member Role Status Dates Kayley ALBA MD Attending Provider Active Start: February 05, 2025 End: February 05, 2025 Team Status: Active Member Role Status Dates Jayesh ALBA Attending Provider Active Sta rt: February 07, 2025 Team Status: Active Member Role Status Dates Kayley ALBA MD Attending Provider Active Start: February 08, 2025 Team Status: Active Member Role Status Dates Kayley ALBA MD Attending Provider Active Start: February 12, 2025 Team Status: Active Member Role Status Dates Kayley ALBA MD Attending Provider Active Start: February 13, 2025 Team Status: Active Member Role Status Dates Kayley ALBA MD Attending Provider Active Start: February 15, 2025 Team Status: Active Member Role Status Dates Kayley ALBA MD Attending Provider Active Start: February 20, 2025 Satellite Communications Engineer Relationship Specialty Start Date End Date Leilani Troncoso [address] [place] [phone] PCP - General Family Medicine 10/03/24 Satellite Communications Engineer Relationship Specialty Start Date End Date Leilani Troncoso [address] [place] [phone] PCP - General Family Medicine 10/03/24 Satellite Communications Engineer Relationship Specialty Start Date End Date Leilani Troncoso [address] [place] [phone] PCP - General Family Medicine 10/03/24 Satellite Communications Engineer Relationship Specialty Start Date End Date Leilani Troncoso [address] [place] [phone] PCP - General Family Medicine 10/03/24 Satellite Communications Engineer Relationship Specialty Start Date End Date Leilani Troncoso [address] [place] [phone] PCP - General Family Medicine 10/03/24 Reason for Visit (unrecogniz ed section and content) Reason Comments Emesis Diarrhea Oral Swelling Reason Comments Hemoglobin drop 6.8 Rectal bleeding- lab s in Care Everywhere under Summarization Reason Comments Procedure Reason Comments cecilia carlson Reason Comments please advise Reason Comments Sore Open sore on left ar m that bleeds intermittently Reason Comments Palpitations Pt presents to ED wi th concern for possible Afib. States that he was seen at dialysis when the provider felt his heart rate and felt like it was abnormal with a HR of 140bpm. Denies any h/o Afib. Reports some recent hyperkalemia and high Phosphorus levels. Specialty Diagnoses / Procedures Referred By Contac t Referred To Contact Diagnoses New onset a-fib (CMS/HCC) ([facility]) Procedures . Earlene Irving MD [address] [facility] [address] [place] [address] [facility] Emergency Dept [address] [place] [address] Referral ID Status Reason Start Date Expiration Date Visits Re quested Visits Authorized [id number] 1 Reason Onset Date Comments Cancelled Appointment 10/14/2023 Reason Comments Atrial Fibrillation Reason Onset Date Comments unable to contact patient 02/12/2024 Reason Onset Date Comments unable to contact patient to schedule 02/12/2024 Reason Comments Dialysis status update Reason Comments 6 Month Follow-up Reason Onset Date Comments Care Coordination 10/16/2024 Reason Onset Date Comments Advice Only 11/28/2024 Reason Comments Tracheostomy Tube Change Specialty Diagnoses / Procedures Referred By Contac t Referred To Contact Diagnoses Complication of tracheostomy (CMS/HCC) ([facility]) Procedures . Bruce Nguyen MD [address] [place] [address] Phone: tel: fax: [facility] Medical Intensive Care Unit MICU T[address] [place] [address] Phone: tel: Referral ID Status Reason Start Date Expiration Date Visits Re quested Visits Authorized [id number] 1 Reason Onset Date Comments Anticoagulation 01/29/2025 Reason Comments Follow-up Sacral OM Reason Onset Date Comments Other 02/21/2025 Reason Comments Coughing Up Blood Pt arrives via EMS d ue to coughing up blood. This began around 1200 today while he was at dialysis. Pt endorses nausea, but denies any related abdominal pain. 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 Specialty Diagnoses / Procedures Referred By Contjayant t Referred To Contact Diagnoses Hemoptysis Procedures . Bettye Pierre MD [address] [place] [address] Phone: tel: fax: [facility] Trauma Neuro Progressive Care Unit PCU [address] [place] [address] Phone: tel: Referral ID Status Reason Start Date Expiration Date Visits Re quested Visits Authorized [id number] 1 1 Goals (unrecognized section and content) Goals may be documented in a n alternate section FOR RECORDS PERTAINING TO PATIENTS WHO ARE OR HAVE BEEN ENROLLED IN A CHEMICAL DEPENDENCY/SUBSTANCEABUSE PROGRAM, SOME INFORMATION MAY BE OMITTED. This clinical summary was aggregated from multiple sources. Caution should be exercised in using it in the provision of clinical care. This summary normalizes information from multiple sources, and as a consequence, information in this document may materially change the coding, format and clinical context of patient data. In addition, data may be omitted in some cases. CLINICAL DECISIONS SHOULD BE BASED ON THE PRIMARY CLINICAL RECORDS. [email or web address] provides no warranty or guarantee of the accuracy or completeness of information in this document.
== END ==
LOC: OLS.SANC 05:00
DX: I48.91 Unspecified atrial fibrillation (principal); D64.9 Anemia, unspecified; I10 Essential (primary) hypertension; Z79.01 Long term (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 anticoagulants

== ENCOUNTER → 2025-03-09 05:00 | Outpatient (REF) | payer MEDICARE, SELFPAY ==
--- OUTSIDE RECORDS SUMMARY | 2025-03-09 04:06 | XMS RPT_ITS | CCD ---
Author Organization [facility] Care Team Providers Care Manager Hvac Name Role Phone Candido Starr Unavailable Unavailable Primary Care Provider Unavailrickey Loomis MD, Daryn Cali Primary Care Provider Unavailable Primary Care Provider UnavailCandido Hardy MD Unavailable Daryn Loomis MD Primary Care Provider Candido Starr MD Unavailable [facility] Primary Care Provider [phone] [facility] Primary Care Provider Kayley Melendrez MD Attending Provider Unava ilable Jayesh Nguyen Attending Provider Unavailab le Kayley Jones Attending Unavail able Parvin ALBA, Kayley Attending Unavail able Samira PARTH, Kayley Attending Unavail able Samira PARTH, Kayley Attending Unavail able Samira PARTH, Kayley Attending Unavail able Jayesh Nguyen Attending Unavailable Parvin ALBA, Kayley Attending Unavail able [facility] Primary Care Unavailable BETTYE PIERRE Admitting Unavailable TERRELLYURIYWELLINGTON Consulting Unavailable ANTHONY HURTADO Attending Unavailable [facility] Primary Care Unavailable CINDY PATEL Consulting Unavailrickey MONTEMAYOR LUCIANO Admitting Unavailable LUCIANO MONTEMAYOR Attending Unavailable ELDON ALBA Consulting Unavailable TIFFANIE VILLEGAS Consulting Unavailable DARYN SANTACRUZ Consulting Unavailable CALI ARREDONDO Consulting Unavailable [facility] Primary Care Unavailable QUIANA JEFFERY Admitting Unavailable JUNE CHAPARRO Consulting Unavailable BARB DAWKINS Attending Unavailable MIKALA DAY Attending Unavailable MIKALA DAY Referring Unavailable [facility] Primary Care Unavailable FRANK, JESE Referring Unavailable [facility] Primary Care Unavailable MIKALA DAY Attending Unavailable [facility] Unavailable JR SHAH Attending Unavailable DARYN LOOMIS Primary [facility] Unavailable MONTEMAYOR, LUCIANO Referring Unavailable [facility] Unavailable MONTEMAYOR, LUCIANO Referring Unavailable [facility] Primary Care Unavailable OSIRIS TERRELL Attending Unavailable [facility] Unavailable FRANK, JESE Referring Unavailable [facility] Primary Care Unavailable Allergies Allergy Classification Reported Allergen(s) Allergy Type Date of Onset Reaction(s) Facility (11 sources) Lisinopril Drug Allergy 0 Swelling [facility] Work Phone: (20 sources) Lisinopril Allergy to substance 2 Swelling, Angioedema [facility] Medications Current Medications Medication Drug Class(es) Dates [...] o nce daily. Take 2 tablets by [facility] once daily. amoxicillin 500 mg / clavulanate 125 mg oral tablet (3 sources) Penicillin-class Antibacterial Start: take 1 tablet by mouth once daily amoxicillin-clavul anate (Augmentin) 500-125 MG tablet Take 1 tablet (500 mg) by mouth daily with supper. Augmentin 500mg q24 (to be taken after HD on HD days) until 03/10/25 02/28/2025 Active Ampicillin-Sulbactam Sodium (UNASYN IV) (1 source) Start: 025 End: 025 take 3 g intravenously every twenty-four hours [...] / vitamin b12 0.006 mg oral tablet (8 sources) Vitamin B12, Vitamin C take 1 tablet by mouth once daily B complex-vitamin C-folic acid (Nephro-Nato Rx) 1 MG tablet Take 1 tablet by mouth daily. Active atorvastatin 10 mg oral tablet (3 sources) HMG-CoA Reductase Inhibitor Start: 023 End: 024 take 1 tablet by mouth once daily atorvastatin (Lipitor) 10 MG tablet Take 1 tablet (10 mg) by mouth daily. 30 tablet 1 08/17/2023 10/16/2023 Active bisacodyl 5 mg delayed release oral tablet (16 sources) Stimulant Laxative take 10 mg rectal route every twenty-four hours as needed for constipation bisacodyl (Dulcolax) 10 MG suppository Insert 10 mg into the rectum Daily as needed for constipation. Active take 1 tablet by edwina th every twenty-four hours as needed for constipation bisacodyl (Dulcolax) 5 MG EC tablet Take 5 mg by mouth Daily as needed for constipation. Do not crush, chew, or split. Active emollient (Biafine) cream (5 sources) Start: 05-01-2023 [...] Active magnesium hydroxide 160 mg/ml oral suspension (8 sources) take 30 mL by mouth every twenty-four hours as needed for constipation magnesium hydroxide (Milk of Magnesia) 800 MG/5ML suspension Take 30 mL by mouth Daily as needed for constipation (if no bm in 3 days). Active take 30 mL by mouth every twenty -four hours as needed for constipation melatonin 3 mg oral tablet (20 sources) Start: 02-21-2025 End: 03-05-2025 take 1 tablet by mouth once daily as needed for sleep melatonin 3 MG tablet Take 1 tablet (3 mg) by mouth Nightly as needed for sleep. 03/01/2025 Active Start: 01-19-2025 End: 02-01-2025 Start: 11-28-2024 End: 03-05-2025 melatonin 5 MG tablet 1 tabl et (5 mg) by Per G Tube route Nightly as needed (insomnia). 11/28/2024 03/05/2025 Discontinued (Stop taking at discharge) Start: 11-28-2024 End: 03-05-2025 metoprolol tartrate 25 mg oral tablet (20 sources) beta-Adrenergic Mono Start: 02-21-2025 End: 03-01-2026 take 1 tablet by mouth twice daily metoprolol tartrate (Lopressor) 25 MG tablet Take 1 tablet (25 mg) by mouth 2 times daily. 60 tablet 11 03/01/2025 03/01/2026 Active Start: 01-25-2025 Start: 01-25-2025 End: 02-01-2025 Start: [...] (LOPRESSOR) split-tablet 12.5 mg (1 source) Start: 10-22-2019 metoprolol tartrate (LOPRESSOR) split-tablet 12.5 mg naloxone in sodium chloride (PF) injection injection (6 sources) naloxone in sodi um chloride (PF) injection injection Inject 0.04 mg into the shoulder, thigh, or buttocks as needed for opioid reversal or respiratory depression. Active naloxone in sodi um chloride (PF) injection injection Inject 0.04 mg into the shoulder, thigh, or buttocks as needed for opioid reversal or respiratory depression. Suspended pantoprazole 40 mg delayed release oral tablet (20 sources) Proton Pump Inhibitor Start: 02-21-2025 End: 03-01-2026 take 1 tablet by mouth twice daily before mealtime pantoprazole (ProtoNix) 40 MG EC tablet Take 1 tablet (40 mg) by mouth 2 times daily (before meals). Do not crush, chew, or split. 60 tablet 11 03/01/2025 03/01/2026 Active Start: 11-28-2024 End: 02-21-2025 pantoprazole (ProtoNix) 40 M G injection Infuse 40 mg into a venous catheter 2 times daily. 11/28/2024 02/21/2025 Discontinued (Discontinued by another clinician) Start: 10-19-2019 End: 10-19-2019 pantoprazole (PROTONIX) inje ction 40 mg potassium phosphate 155 mg / sodium [...] oral tablet (20 sources) Atypical Antipsychotic Start: 02-22-20 End: 03-31-20 take 1 tablet by mouth once daily QUEtiapine (SEROquel) 25 MG tablet Take 1 tablet (25 mg) by mouth Nightly. 30 tablet 03/01/2025 03/31/2025 Active Start: 11-28-2024 End: 03-05-2025 sevelamer carbonate 800 mg o ral tablet (20 sources) Phosphate Binder Start: 03-01-2025 End: 03-01-2026 Start: 02-21-2025 End: 03-01-2026 take 1 tablet by mouth three times daily at mealtime sevelamer carbonate (Renvela) 800 MG tablet Indications: ESRD on hemodialysis (CMS/HCC) ([facility]) Take 1 tablet (800 mg) by mouth 3 times daily (with meals). Swallow tablet whole; do not crush, break, or chew. 90 tablet 11 03/01/2025 03/01/2026 Active Start: 08-13-2020 take 3 tablets by mo ut three times daily at mealtime sevelamer carbonate [...] (ROCKY BENNETT) tablet 1,600 mg End: 03-05-2025 take 1 tablet by mouth three times daily at mealtime sevelamer (Renagel) 800 MG tablet Take 800 mg by mouth 3 times daily (with meals). Swallow tablet whole; do not crush, break, or chew. Give with meals for CKD/dialysis 03/05/2025 Discontinued (Stop taking at discharge) Comment on above: [facility]. Take 3 tablets by mo [facility] three times daily with meals. sodium chloride flush 0.9 % injection 3 mL (1 source) Start: sodium chloride flush 0.9 % injection 3 mL sodium zirconium cyclosilicate 5000 mg powder for oral suspension (5 sources) Start: End: take 5 g by mouth once daily sodium zirconium cyclosilicate (Lokelma) 5 g packet Take 5 g by mouth daily. 03/04/2025 Active sulfamethoxazole 400 mg / trimethoprim 80 mg oral tablet (2 sources) Dihydrofolate Reductase Inhibitor Antibacterial, Sulfonamide Antimicrobial Start: 023 End: 023 take 1 tablet by mouth once daily sulfamethoxazole-tri methoprim (Bactrim) 400-80 MG tablet Take 1 tablet by mouth daily for 3 days. 3 tablet 0 05/01/2023 05/04/2023 Active warfarin sodium 7.5 mg oral tablet (20 sources) Vitamin K Antagonist Start: 025 Start: 03-02-2025 Start: 02-27-2025 Start: 02-24-2025 Start: [...] Sig (Original) acetaminophen 500 mg oral tablet (16 sources) Start: 01-19-2025 End: 02-01-2025 take 1000 mg by mouth every eight hours as needed for pain and fever Start: 01-19-2025 End: 01-19-2025 take 1 tablet by mouth every eight hours Start: 01-19-2025 End: 01-19-2025 Start: 08-17-2023 End: 08-17-2023 take 1 tablet by mouth every six hours as needed for pain and fever acetaminophen (Tylenol) tablet 650 mg 20 ml albumin human, senior living 250 mg/ml injection (1 source) Human Serum Albumin Start: 10-12-2024 End: 10-12-2024 IntraVENous, As needed, Starting on Brigid 10/12/24 at 1025, Anesthesia Intraprocedure albuterol 0.83 mg/ml [...] sodium chloride 0.9 % 100 mL IVPB (Add-[place]) (2 sources) Start: 02-01-2025 End: 02-01-2025 anidulafungin [...] End: 01-22-2025 Start: 01-22-2025 End: 01-22-2025 B Jvbhpzl-D-Idqpu Acid (NEPHRO-NATO) 0.8 MG TABS (1 source) Start: 10-14-2020 take 1 tablet by mouth once daily B Upzcnjf-N-Iwwqf Acid (NEPHRO-NATO) 0.8 MG TABS TAKE 1 [...] Brigid 10/12/24 at 0736, Anesthesia Intraprocedure Start: 10-19-2019 End: [...] Continuous PRN, Starting on Brigid 10/12/24 at 1024, Anesthesia Intraprocedure epoetin rowan-epbx (Retacrit) 61783 UNIT/ML injection (20 sources) Start: 12-04-2024 End: 02-21-2025 inject 0.79 mL by subcutaneous injection every week epoetin rowan-epbx (Retacrit) 38855 UNIT/ML injection Indications: ESRD on Dialysis Inject 0.79 mL (7,900 Units) under the skin 1 (one) time per week. 12/04/2024 02/21/2025 Discontinued (Discontinued by another clinician) Start: 12-04-2024 inject 0.79 mL by bangura bcutaneous injection every week epoetin rowan-epbx (Retacrit) 85517 UNIT/ML injection Indications: ESRD on Dialysis Inject [...] 02-21-2025 End: 03-05-2025 Start: 01-19-2025 End: 02-01-2025 Nicotine (2 sources) Cholinergic Nicotinic Agonist Start: 08-17-2023 End: 08-17-2023 nicotine (Nicoderm, Step 1) 21 MG/24HR patch 1 patch nitroglycerin 0.4 mg sublingual tablet (2 sources) Nitrate Vasodilator Start: 02-25-2025 End: 02-25-2025 NITROGLYCERIN 100 MCG / ML IN D5W VIAL FOR INTRA-OP/INTRAPROCEDUR E USE (1 source) Start: 10-12-2024 End: 10-12-2024 [...] release tablet Indications: Complication of tracheostomy (CMS/HCC) (HCC) , Sacral osteomyelitis (CMS/HCC) (HCC) , Decubitus [...] up to 7 days. 11/28/2024 12/05/2024 Active perfusion prime builder (1 source) Start: 10-12-2024 [...] at 1024, Anesthesia Intraprocedure polyethylene glycol 3350 56503 mg powder for oral solution (4 sources) [...] sodium chloride 5860 mg / sodium sulfate 96235 mg powder for oral solution (6 sources) [...] 1105, Anesthesia Intraprocedure 25 ml protamine sulfate (senior living) 10 mg/ml injection (1 source) Start: 10-12-2024 [...] sources) Long-term current use of antibiotic; Translations: [longterm (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] Onset: 01-12-2025 01-12-2025 Episodic Other aftercare (1 source) longterm (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 anticoagulants; Translations: [rodent exterminator (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 anticoagulants] Onset: 03-05-2025 Episodic Other aftercare (1 source) Other termite exterminator (current) drug therapy; Translations: [Other fci (current) drug therapy] Onset: 02-28-2025 Episodic Other aftercare (1 source) 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; Translations: [longterm (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] Onset: 01-12-2025 Episodic Other endocrine disorders (2 sources) Hypoglycemia, unspecified; Translations: [Hypoglycemia, unspecified] Onset: 10-03-2024 Chronic Other lower respiratory disease (6 sources) Lower respiratory tract infection; Translations: [Unspecified acute lower respiratory infection] 12-18-2024 Episodic Other lower respiratory disease (20 sources) Hemoptysis; Translations: [Hemoptysis] Onset: 02-20-2025 02-23-2025 [...] 03-06-2025 36 Pt [facility] [id number] 03-05-2025 [id number] [facility] [id number] Auth is now pending with [facility] for [facility]. Auth ID: [id number] . The insurance needs PT and OT notes- as PT note yesterday incomplete , they are both requested . [facility] [id number] [facility] [id number] Discharge med list transmitted to [facility] via [facility] per TCC request. [facility] [id number] [facility] [id number] [facility] APTTon 03-05-2025 aPTT Coag (Bld) [Time] 37.6 s High 20.0-30.5 [facility] Comment on above: Result Comment: ARPAN Kaplan COMMENTS:NOTE: The therapeutic time for Heparin anticoagulation, based on Xa activity inhibition, is an APTT of 46-80 seconds. Performed By: #### L [id number], [id number] ####Specialized Language Instructor: DOMENICA JARA ([id number])[facility] ([facility])[address] [place] [address] BASIC METABOLIC PANELon 06-0 Anion gap [Moles/Vol] 8 mmol/L Normal 3-13 [facility] Comment on above: Performed By: #### L AB15 ####Specialized Language Instructor: DOMENICA JARA ([id number])[facility] ([facility])[address] [place] [address] Calcium [Mass/Vol] 9.7 mg/dL Normal 8.4-10.2 [facility] Comment on above: Performed By: #### L AB15 ####Specialized Language Instructor: DOMENICA JARA ([id number])[facility] ([facility])[address] [place] [address] Chloride [Moles/Vol] 102 mmol/L Normal 98-107 [facility] Comment on above: Performed By: #### L AB15 ####Specialized Language Instructor: DOMENICA JARA ([id number])[facility] ([facility])[address] [place] [address] CO2 [Moles/Vol] 26 mmol/L Normal 22-29 [facility] Comment on above: Performed By: #### L AB15 ####Specialized Language Instructor: DOMENICA JARA ([id number])[facility] ([facility])[address] [place] [address] Creatinine [Mass/Vol] 3.10 mg/dL High 0.72-1.25 [facility] Comment on above: Performed By: #### L AB15 ####Specialized Language Instructor: DOMENICA JARA ([id number])[facility] ([facility])[address] [place] [address] [place] GLOMERULAR FILTRATION RATE ML/MIN/1.73 SQ M.PREDICTED 22.3 mL/min/1.73m*2 Low >60.0 [facility] Comment on above: Result Comment: Calc ulation based on the Chronic Kidney Disease Epidemiology Collaboration (CKD-EPI) equation refit without adjustment for race Performed By: #### L AB15 ####Specialized Language Instructor: DOMENICA JARA ([id number])[facility] [place] [address] [place] Glucose [Mass/Vol] 68 mg/dL Low 74-100 [facility] Comment on above: Performed By: #### L AB15 ####Specialized Language Instructor: DOMENICA JARA ([id number])[facility] [place] [address] [place] Potassium [Moles/Vol] 5.9 mmol/L High 3.5-5.1 [facility] Comment on above: Result Comment: [facility] potassium values may be up to 0.5 mmol/L lower than serum values. Performed By: #### L AB15 ####Specialized Language Instructor: DOMENICA JARA ([id number])[facility] ([facility])[address] [place] [address] [place] Sodium [Moles/Vol] 136 mmol/L Normal 136-145 [facility] Comment on above: Performed By: #### L AB15 ####Specialized Language Instructor: DOMENICA JARA ([id number])[facility] [place] [address] [place] Urea nitrogen [Mass/Vol] 27 mg/dL High 9-23 [facility] Comment on above: Performed By: #### L AB15 ####Specialized Language Instructor: DOMENICA JARA ([id number])[facility] [place] [address] [place] Anion gap [Moles/Vol] 9 mmol/L Normal 3-13 [facility] Comment on above: Performed By: #### L AB15 ####Specialized Language Instructor: DOMENICA JARA ([id number])[facility] ([facility])[address] [place] [address] [place] Calcium [Mass/Vol] 9.7 mg/dL Normal 8.4-10.2 [facility] Comment on above: Performed By: #### L AB15 ####Specialized Language Instructor: DOMENICA JARA ([id number])[facility] [place] [address] [place] Chloride [Moles/Vol] 102 mmol/L Normal 98-107 [facility] Comment on above: Performed By: #### L AB15 ####Specialized Language Instructor: DOMENICA JARA ([id number])[facility] ([facility])[address] [place] [address] CO2 [Moles/Vol] 25 mmol/L Normal 22-29 [facility] Comment on above: Performed By: #### L AB15 ####Specialized Language Instructor: DOMENICA JARA ([id number])[facility] ([facility])[address] [place] [address] Creatinine [Mass/Vol] 3.03 mg/dL High 0.72-1.25 [facility] Comment on above: Performed By: #### L AB15 ####Specialized Language Instructor: DOMENICA JARA ([id number])[facility] ([facility])[address] [place] [address] [place] GLOMERULAR FILTRATION RATE ML/MIN/1.73 SQ M.PREDICTED 22.9 mL/min/1.73m*2 Low >60.0 [facility] Comment on above: Result Comment: Calc ulation based on the Chronic Kidney Disease Epidemiology Collaboration (CKD-EPI) equation refit without adjustment for race Performed By: #### L AB15 ####Specialized Language Instructor: DOMENICA JARA ([id number])[facility] ([facility])[address] [place] [address] [place] Glucose [Mass/Vol] 77 mg/dL Normal 74-100 [facility] Comment on above: Performed By: #### L AB15 ####Specialized Language Instructor: DOMENICA JARA ([id number])[facility])[address] [place] [address] [place] Potassium [Moles/Vol] 6.6 mmol/L Critically high 3.5-5.1 [facility] Comment on above: Result Comment: [facility] potassium values may be up to 0.5 mmol/L lower than serum values. Performed By: #### L AB15 ####Specialized Language Instructor: DOMENICA JARA ([id number])[facility] ([facility])[address] [place] [address] Sodium [Moles/Vol] 136 mmol/L Normal 136-145 [facility] Comment on above: Performed By: #### L AB15 ####Specialized Language Instructor: DOMENICA JARA ([id number])[facility] ([facility])[address] [place] [address] Urea nitrogen [Mass/Vol] 26 mg/dL High 9-23 [facility] Comment on above: Performed By: #### L AB15 ####Specialized Language Instructor: DOMENICA JARA ([id number])[facility] ([facility])[address] [place] [address] Basic metabolic 1998 panelon 03-05-2025 Anion gap [Moles/Vol] 8 mmol/L 3 - 13 mmol/L [facility] Calcium [Mass/Vol] 9.7 mg/dL 8.4 - 10. 2 mg/dL [facility] Chloride [Moles/Vol] 102 mmol/L 98 - 10 7 mmol/L [facility] CO2 [Moles/Vol] 26 mmol/L 22 - 29 mmol/L [facility] Creatinine [Mass/Vol] 3.1 mg/dL High 0.72 - 1.25 mg/dL [facility] GFR/1.73 sq M.predicted (S/P/Bld) [Vol rate/Area] 22.3 mL/min Low - PINF [facility] Glucose [Mass/Vol] 68 mg/dL Low 74 - 100 mg/dL [facility] Interpretation and review of laboratory results Abnormal [facility] Potassium [Moles/Vol] 5.9 mmol/L High 3.5 - 5.1 mmol/L [facility] Sodium [Moles/Vol] 136 mmol/L 136 - 145 mmol/L [facility] Urea nitrogen [Mass/Vol] 27 mg/dL High 9 - 23 mg/d L [facility] Anion gap [Moles/Vol] 9 mmol/L 3 - 13 mmol/L [facility] Calcium [Mass/Vol] 9.7 mg/dL 8.4 - 10. 2 mg/dL [facility] Chloride [Moles/Vol] 102 mmol/L 98 - 10 7 mmol/L [facility] CO2 [Moles/Vol] 25 mmol/L 22 - 29 mmol/L [facility] Creatinine [Mass/Vol] 3.03 mg/dL High 0.72 - 1.25 mg/dL [facility] GFR/1.73 sq M.predicted (S/P/Bld) [Vol rate/Area] 22.9 mL/min Low - PINF [facility] Glucose [Mass/Vol] 77 mg/dL 74 - 100 mg/dL [facility] Interpretation and review of laboratory results Abnormal [facility] Potassium [Moles/Vol] 6.6 mmol/L Critically high 3.5 - 5.1 mmol/L [facility] Sodium [Moles/Vol] 136 mmol/L 136 - 145 mmol/L [facility] Urea nitrogen [Mass/Vol] 26 mg/dL High 9 - 23 mg/d L [facility] CBC (HEMOGRAM)on 03-05-2025 Erythrocyte distribution width (RBC) [Ratio] 21.6 % High 11.5-15.0 [facility] Comment on above: Performed By: #### L [id number] ####Specialized Language Instructor: DOMENICA JARA ([id number])[facility])[address] [place] [address] Hematocrit (Bld) [Volume fraction] 25.7 % Low 40.0-52.0 [facility] Comment on above: Performed By: #### L [id number] ####Specialized Language Instructor: DOMENICA JARA ([id number])[facility])[address] [place] [address] Hemoglobin (Bld) [Mass/Vol] 7.7 g/dL Low 13.0-18.0 [facility] Comment on above: Performed By: #### L [id number] ####Specialized Language Instructor: DOMENICA JARA ([id number])[facility])[address] [place] [address] MCH (RBC) [Entitic mass] 29.7 pg Normal 26.0-34.0 [facility] Comment on above: Performed By: #### L [id number] ####Specialized Language Instructor: DOMENICA JARA ([id number])[facility])[address] [place] [address] MCHC 30.0 % Low 30.5-36.0 [facility] Comment on above: Performed By: #### L [id number] ####Specialized Language Instructor: DOMENICA JARA ([id number])[facility])[address] [place] [address] MCV (RBC) [Entitic vol] 99.2 fL High 77.0-99.0 [facility] Comment on above: Performed By: #### L [id number] ####Specialized Language Instructor: DOMENICA JARA ([id number])[facility] ([facility])[address] [place] [address] Platelet mean volume (Bld) [Entitic vol] 9.1 fL Normal 9.0-12.7 [facility] Comment on above: Performed By: #### L [id number] ####Specialized Language Instructor: DOMENICA JARA ([id number])[facility])[address] [place] [address] Platelets (Bld) [#/Vol] 303 10*3/uL Normal 140-440 [facility] Comment on above: Performed By: #### L [id number] ####Specialized Language Instructor: DOMENICA JARA ([id number])[facility])[address] [place] [address] RBC (Bld) [#/Vol] 2.59 10*6/uL Low 4.40-5.90 [facility] Comment on above: Performed By: #### L [id number] ####Specialized Language Instructor: DOMENICA JARA ([id number])[facility])[address] [place] [address] WBC (Bld) [#/Vol] 9.1 10*3/uL Normal 3.6-10.7 [facility] Comment on above: Performed By: #### L [id number] ####Specialized Language Instructor: DOMENICA JARA ([id number])[facility])[address] [place] [place] [address] CBC W/Diff, Automatedon 06-0 Absolute Neut Normal 2.0-7.7 [facility] Comment on above: Order Comment: 413-2 Result Comment: [facility] Performed By: #### L 100.0100, L300.3900, L500.4050 #### [facility] [address] [place], [address] HCT Normal 40-54 [facility] Comment on above: Order Comment: 413-2 Result Comment: [facility] Performed By: #### L 100.0100, L300.3900, L500.4050 #### [facility] [address] [place], [address] HGB Normal 13.0-16.5 [facility] Comment on above: Order Comment: 413-2 Result Comment: [facility] Performed By: #### L 100.0100, L300.3900, L500.4050 #### [facility] [address] [place], [address] MCH Normal 27.0-32.0 [facility] Comment on above: Order Comment: 413-2 Result Comment: [facility] Performed By: #### L 100.0100, L300.3900, L500.4050 #### [facility] [address] [place], [address] MCHC Normal 32-36 [facility] Comment on above: Order Comment: 413-2 Result Comment: [facility] Performed By: #### L 100.0100, L300.3900, L500.4050 #### [facility] [address] [place], [address] MCV Normal 80-94 [facility] Comment on above: Order Comment: 413-2 Result Comment: [facility] Performed By: #### L 100.0100, L300.3900, L500.4050 #### [facility] [address] [place], [address] NEUT% Normal 47-70 [facility] Comment on above: Order Comment: 413-2 Result Comment: [facility] Performed By: #### L 100.0100, L300.3900, L500.4050 #### [facility] [address] [place], [address] PLT Normal 150-450 [facility] Comment on above: Order Comment: 413-2 Result Comment: [facility] Performed By: #### L 100.0100, L300.3900, L500.4050 #### [facility] [address] [place], [address] RBC Normal 4.6-6.2 [facility] Comment on above: Order Comment: 413-2 Result Comment: [facility] Performed By: #### L 100.0100, L300.3900, L500.4050 #### [facility] [address] [place], [address] RDW CV Normal 11.6-14.6 [facility] Comment on above: Order Comment: 413-2 Result Comment: [facility] Performed By: #### L 100.0100, L300.3900, L500.4050 #### [facility] [address] [place], [address] RDW SD Normal 35.1-43.9 [facility] Comment on above: Order Comment: 413-2 Result Comment: [facility] Performed By: #### L 100.0100, L300.3900, L500.4050 #### [facility] [address] [place], [address] WBC Normal 4.4-11.0 [facility] Comment on above: Order Comment: 413-2 Result Comment: [facility] Performed By: #### L 100.0100, L300.3900, L500.4050 #### [facility] [address] [place], [address] CBC panel Auto (Bld)on 03-05 Erythrocyte distribution width (RBC) [Ratio] 21.6 % High 11.5 - 15.0 % [facility] Hematocrit (Bld) [Volume fraction] 25.7 % Low 40.0 - 52.0 % [facility] Hemoglobin (Bld) [Mass/Vol] 7.7 g/dL Low 13.0 - 18.0 g/dL [facility] Interpretation and review of laboratory results Abnormal [facility] MCH (RBC) [Entitic mass] 29.7 pg 26. 0 - 34.0 pg [facility] MCHC (RBC) [Mass/Vol] 30 % Low 30.5 - 36.0 % [facility] MCV (RBC) [Entitic vol] 99.2 fL High 77.0 - 99.0 fL [facility] Platelet mean volume (Bld) [Entitic vol] 9.1 fL 9.0 - 12.7 fL [facility] Platelets (Bld) [#/Vol] 303 10*3/uL 140 - 440 10*3/uL [facility] RBC (Bld) [#/Vol] 2.59 10*6/uL Low 4.40 - 5.9 0 10*6/uL [facility] WBC (Bld) [#/Vol] 9.1 10*3/uL 3.6 - 10.7 10*3/uL [facility] Comprehensive Metabolic Prof ilon 03-05-2025 ALB Normal 3.5-5.0 [facility] Comment on above: Order Comment: 413-2 Result Comment: [facility] Performed By: #### L 100.0100, L300.3900, L500.4050 #### [facility] [address] [place], [address] ALK PHOS Normal 40-129 [facility] Comment on above: Order Comment: 413-2 Result Comment: [facility] Performed By: #### L 100.0100, L300.3900, L500.4050 #### [facility] [address] [place], [address] ALT Normal <=46 [facility] Comment on above: Order Comment: 413-2 Result Comment: [facility] Performed By: #### L 100.0100, L300.3900, L500.4050 #### [facility] [address] [place], [address] AST Normal <=37 [facility] Comment on above: Order Comment: 413-2 Result Comment: [facility] Performed By: #### L 100.0100, L300.3900, L500.4050 #### [facility] [address] [place], [address] BUN Normal 4-19 [facility] Comment on above: Order Comment: 413-2 Result Comment: [facility] Performed By: #### L 100.0100, L300.3900, L500.4050 #### [facility] [address] [place], [address] BUN/CRE Normal 10-20 [facility] Comment on above: Order Comment: 413-2 Result Comment: [facility] Performed By: #### L 100.0100, L300.3900, L500.4050 #### [facility] [address] [place], [address] Calcium Normal 7.6-11.0 [facility] Comment on above: Order Comment: 413-2 Result Comment: [facility] Performed By: #### L 100.0100, L300.3900, L500.4050 #### [facility] [address] [place], [address] CL Normal 98-108 [facility] Comment on above: Order Comment: 413-2 Result Comment: [facility] Performed By: #### L 100.0100, L300.3900, L500.4050 #### [facility] [address] [place], [address] CO2 Normal 21.0-32.0 [facility] Comment on above: Order Comment: 413-2 Result Comment: [facility] Performed By: #### L 100.0100, L300.3900, L500.4050 #### [facility] [address] [place], [address] CREAT,SERUM Normal 0.70-1.20 [facility] Comment on above: Order Comment: 413-2 Result Comment: [facility] Performed By: #### L 100.0100, L300.3900, L500.4050 #### [facility] [address] [place], [address] eGFR Normal >60 [facility] Comment on above: Order Comment: 413-2 Result Comment: [facility] Performed By: #### L 100.0100, L300.3900, L500.4050 #### [facility] [address] [place], [address] GAP Normal 5-15 [facility] Comment on above: Order Comment: 413-2 Result Comment: [facility] Performed By: #### L 100.0100, L300.3900, L500.4050 #### [facility] [address] [place], [address] GLU Normal 70-99 [facility] Comment on above: Order Comment: 413-2 Result Comment: [facility] Performed By: #### L 100.0100, L300.3900, L500.4050 #### [facility] [address] [place], [address] Potassium Normal 3.3-5.1 [facility] Comment on above: Order Comment: 413-2 Result Comment: [facility] Performed By: #### L 100.0100, L300.3900, L500.4050 #### [facility] [address] [place], [address] T BILI Normal 0.00-1.30 [facility] Comment on above: Order Comment: 413-2 Result Comment: [facility] Performed By: #### L 100.0100, L300.3900, L500.4050 #### [facility] [address] [place], [address] T PROT Normal 5.9-8.4 [facility] Comment on above: Order Comment: 413-2 Result Comment: [facility] Performed By: #### L 100.0100, L300.3900, L500.4050 #### [facility] [address] [place], [address] Comprehensive Metabolic Profil Normal 133-145 [facility] Comment on above: Order Comment: 413-2 Result Comment: [facility] Performed By: #### L 100.0100, L300.3900, L500.4050 #### [facility] [address] [place], [address] Laboratory - Chemistry and C hemistry - challengeon 03-05-2025 Glucose [Mass/Vol] 142 mg/dL High 70 - 100 mg/dL [facility] Glucose [Mass/Vol] 83 mg/dL 70 - 100 mg/dL [facility] Laboratory - Coagulationon 0 03-05-2025 PT Coag (Bld) [Time] 18.6 s High 9.0 - 12.0 s [facility] No Panel Informationon 03-05 Interpretation and review of laboratory results Abnormal [facility] Interpretation and review of laboratory results Normal [facility] Interpretation and review of laboratory results Abnormal [facility] PROTHROMBIN TIMEon INR Coag (PPP) [Relative time] 1.8 {INR} High 0.9-1.1 [facility] Comment on above: Result Comment: [...] Myocardial Infarction Performed By: #### L AB325, [id number] ####Specialized Language Instructor: DOMENICA JARA ([id number])[facility] [place] [address] [facility] PT Coag (PPP) [Time] 18.6 s High 9.0-12.0 [facility] Comment on above: Performed By: #### Tameka AB325, [id number] ####Specialized Language Instructor: DOMENICA JARA ([id number])[facility] ([facility])[address] [place] [address] [place] PT Coag (Bld) [Time]on 03-05 INR Coag (PPP) [Relative time] 1.8 {INR} High 0.9 - 1.1 [facility] Progress Noteon 03-05-2025 Progress Note Normal [facility] Progress Note Normal [facility] Progress Note Normal [facility] Progress Note Normal [facility] Progress Note Normal [facility] Prothrombin Time w/INRon INR Normal [facility] Comment on above: Order Comment: 413-2 Result Comment: [facility] Performed By: #### L 100.0100, L300.3900, L500.4050 #### [facility] [address] [place], [place], [address] PROTIME Normal 11.7-14.9 [facility] Comment on above: Order Comment: 413-2 Result Comment: [facility] Performed By: #### L 100.0100, L300.3900, L500.4050 #### [facility] [address] [place], [address] aPTT Coag (Bld) [Time]on aPTT Coag (PPP) [Time] 37.6 s High 20.0 - 30.5 s [facility] 30on 03-04-2025 30 Normal [facility] [id number] 03-04-2025 [id number] Normal [facility] APTTon 03-04-2025 aPTT Coag (Bld) [Time] 52.2 s High 20.0-30.5 [facility] Comment on above: Result Comment: ARPAN Kaplan COMMENTS:NOTE: The therapeutic time for Heparin anticoagulation, based on Xa activity inhibition, is an APTT of 46-80 seconds. Performed By: #### L AB325, [id number] ####Specialized Language Instructor: DOMENICA JARA ([phone])[facility] ([facility])[address] [place] [address] BASIC METABOLIC PANELon Anion gap [Moles/Vol] 11 mmol/L Normal 3-13 [facility] Comment on above: Performed By: #### L AB15 ####Specialized Language Instructor: DOMENICA JARA ([id number])[facility])[address] [place] [address] Calcium [Mass/Vol] 9.4 mg/dL Normal 8.4-10.2 [facility] Comment on above: Performed By: #### L AB15 ####Specialized Language Instructor: DOMENICA JARA ([id number])[facility] ([facility])[address] [place] [address] Chloride [Moles/Vol] 103 mmol/L Normal 98-107 [facility] Comment on above: Performed By: #### L AB15 ####Specialized Language Instructor: DOMENICA JARA ([id number])[facility])[address] [place] [address] CO2 [Moles/Vol] 27 mmol/L Normal 22-29 [facility] Comment on above: Performed By: #### L AB15 ####Specialized Language Instructor: DOMENICA JARA ([id number])[facility])[address] [place] [address] Creatinine [Mass/Vol] 2.41 mg/dL High 0.72-1.25 [facility] Comment on above: Performed By: #### L AB15 ####Specialized Language Instructor: DOMENICA [id number])[facility])[address] [place] [address] GLOMERULAR FILTRATION RATE ML/MIN/1.73 SQ M.PREDICTED 30.2 mL/min/1.73m*2 Low >60.0 [facility] Comment on above: Result Comment: Calc ulation based on the Chronic Kidney Disease Epidemiology Collaboration (CKD-EPI) equation refit without adjustment for race Performed By: #### L AB15 ####Specialized Language Instructor: DOMENICA JARA ([id number])[facility] ([facility])[address] [place] [address] Glucose [Mass/Vol] 99 mg/dL Normal 74-100 [facility] Comment on above: Performed By: #### L AB15 ####Specialized Language Instructor: DOMENICA JARA ([id number])[facility])[address] [place] [address] Potassium [Moles/Vol] 5.1 mmol/L Normal 3.5-5.1 [facility] Comment on above: Result Comment: [facility] potassium values may be up to 0.5 mmol/L lower than serum values. Performed By: #### L AB15 ####Specialized Language Instructor: DOMENICA JARA ([id number])[facility])[address] [place] [address] Sodium [Moles/Vol] 141 mmol/L Normal 136-145 [facility] Comment on above: Performed By: #### L AB15 ####Specialized Language Instructor: DOMENICA JARA ([phone])[facility])[address] [place] [address] [place] Urea nitrogen [Mass/Vol] 18 mg/dL Normal 9-23 [facility] Comment on above: Performed By: #### L AB15 ####Specialized Language Instructor: DOMENICA JARA ([id number])[facility])[address] [place] [address] Basic metabolic 1998 panelon 03-04-2025 Anion gap [Moles/Vol] 11 mmol/L 3 - 13 mmol/L [facility] Calcium [Mass/Vol] 9.4 mg/dL 8.4 - 10. 2 mg/dL [facility] Chloride [Moles/Vol] 103 mmol/L 98 - 10 7 mmol/L [facility] CO2 [Moles/Vol] 27 mmol/L 22 - 29 mmol/L [facility] Creatinine [Mass/Vol] 2.41 mg/dL High 0.72 - 1.25 mg/dL [facility] GFR/1.73 sq M.predicted (S/P/Bld) [Vol rate/Area] 30.2 mL/min Low - PINF [facility] Glucose [Mass/Vol] 99 mg/dL 74 - 100 mg/dL [facility] Interpretation and review of laboratory results Abnormal [facility] Potassium [Moles/Vol] 5.1 mmol/L 3.5 - 5.1 mmol/L [facility] Sodium [Moles/Vol] 141 mmol/L 136 - 145 mmol/L [facility] Urea nitrogen [Mass/Vol] 18 mg/dL 9 - 23 mg/d L [facility] CBC (HEMOGRAM)on 03-04-2025 Erythrocyte distribution width (RBC) [Ratio] 21.4 % High 11.5-15.0 [facility] Comment on above: Performed By: #### L AB294 ####Specialized Language Instructor: DOMENICA JARA ([id number])[address] Hematocrit (Bld) [Volume fraction] 25.9 % Low 40.0-52.0 [facility] Comment on above: Performed By: #### L AB294 ####Specialized Language Instructor: DOMENICA JARA ([id number])[address] Hemoglobin (Bld) [Mass/Vol] 7.7 g/dL Low 13.0-18.0 [facility] Comment on above: Performed By: #### L AB294 ####Specialized Language Instructor: DOMENICA JARA ([id number])[facility])[address] [place] [address] MCH (RBC) [Entitic mass] 29.3 pg Normal 26.0-34.0 [facility] Comment on above: Performed By: #### L AB294 ####Specialized Language Instructor: DOMENICA JARA ([id number])[facility])[address] [place] [address] MCHC 29.7 % Low 30.5-36.0 [facility] Comment on above: Performed By: #### L AB294 ####Specialized Language Instructor: DOMENICA JARA ([id number])[facility])[address] [place] [address] MCV (RBC) [Entitic vol] 98.5 fL Normal 77.0-99.0 [facility] Comment on above: Performed By: #### L AB294 ####Specialized Language Instructor: DOMENICA JARA ([id number])[facility])[address] [place] [address] Platelet mean volume (Bld) [Entitic vol] 9.3 fL Normal 9.0-12.7 [facility] Comment on above: Performed By: #### L AB294 ####Specialized Language Instructor: DOMENICA JARA ([id number])[facility] ([facility])[address] [place] [address] Platelets (Bld) [#/Vol] 324 10*3/uL Normal 140-440 [facility] Comment on above: Performed By: #### L AB294 ####Specialized Language Instructor: DOMENICA JARA ([id number])[facility])[address] [place] [address] RBC (Bld) [#/Vol] 2.63 10*6/uL Low 4.40-5.90 [facility] Comment on above: Performed By: #### L AB294 ####Specialized Language Instructor: DOMENICA JARA ([id number])[facility])[address] [place] [address] WBC (Bld) [#/Vol] 7.7 10*3/uL Normal 3.6-10.7 [facility] Comment on above: Performed By: #### L AB294 ####Specialized Language Instructor: DOMENICA JARA ([id number])[facility] ([facility])[address] [place] [address] CBC panel Auto (Bld)on 03-04 Erythrocyte distribution width (RBC) [Ratio] 21.4 % High 11.5 - 15.0 % [facility] Hematocrit (Bld) [Volume fraction] 25.9 % Low 40.0 - 52.0 % [facility] Hemoglobin (Bld) [Mass/Vol] 7.7 g/dL Low 13.0 - 18.0 g/dL [facility] Interpretation and review of laboratory results Abnormal [facility] MCH (RBC) [Entitic mass] 29.3 pg 26. 0 - 34.0 pg [facility] MCHC (RBC) [Mass/Vol] 29.7 % Low 30.5 - 36.0 % [facility] MCV (RBC) [Entitic vol] 98.5 fL 77.0 - 99.0 fL [facility] Platelet mean volume (Bld) [Entitic vol] 9.3 fL 9.0 - 12.7 fL [facility] Platelets (Bld) [#/Vol] 324 10*3/uL 140 - 440 10*3/uL [facility] RBC (Bld) [#/Vol] 2.63 10*6/uL Low 4.40 - 5.9 0 10*6/uL [facility] WBC (Bld) [#/Vol] 7.7 10*3/uL 3.6 - 10.7 10*3/uL [facility] Laboratory - Coagulationon 0 03-04-2025 PT Coag (Bld) [Time] 16.6 s High 9.0 - 12.0 s [facility] PT Coag (Bld) [Time] 15.5 s High 9.0 - 12.0 s [facility] No Panel Informationon 03-04 Interpretation and review of laboratory results Abnormal [facility] PROTHROMBIN TIMEon INR Coag (PPP) [Relative time] 1.6 {INR} High 0.9-1.1 [facility] Comment on above: Result Comment: [...] Myocardial Infarction Performed By: #### Tameka AB320 ####Specialized Language Instructor: DOMENICA JARA ([id number])[facility])[address] [place] [address] PT Coag (PPP) [Time] 16.6 s High 9.0-12.0 [facility] Comment on above: Performed By: #### Tameka AB320 ####Specialized Language Instructor: DOMENICA JARA ([id number])[facility])[address] [place] [address] INR Coag (PPP) [Relative time] 1.5 {INR} High 0.9-1.1 [facility] Comment on above: Result Comment: Vaughn mmended [...] Myocardial Infarction Performed By: #### Tameka AB325, [id number] ####Specialized Language Instructor: DOMENICA JARA ([id number])[facility])[address] [place] [address] PT Coag (PPP) [Time] 15.5 s High 9.0-12.0 [facility] Comment on above: Performed By: #### Tameka AB325, [id number] ####Specialized Language Instructor: DOMENICA JARA ([id number])[facility])[address] [place] [address] [place] PT Coag (Bld) [Time]on 03-04 INR Coag (PPP) [Relative time] 1.6 {INR} High 0.9 - 1.1 [facility] Interpretation and review of laboratory results Abnormal [facility] INR Coag (PPP) [Relative time] 1.5 {INR} High 0.9 - 1.1 [facility] Progress Noteon 03-04-2025 Progress Note Normal [facility] Progress Note Normal [facility] Progress Note Normal [facility] aPTT Coag (Bld) [Time]on aPTT Coag (PPP) [Time] 52.2 s High 20.0 - 30.5 s [facility] 30on 03-03-2025 30 Normal [facility] 30 Normal [facility] 30 Normal [facility] [id number] 03-03-2025 [id number] Normal [facility] APTTon 03-03-2025 aPTT Coag (Bld) [Time] 66.2 s High 20.0-30.5 [facility] Comment on above: Result Comment: ARPAN Kaplan COMMENTS:NOTE: The therapeutic time for Heparin anticoagulation, based on Xa activity inhibition, is an APTT of 46-80 seconds. Performed By: #### L AB325 ####Specialized Language Instructor: DOMENICA JARA ([id number])[address] aPTT Coag (Bld) [Time] 52.4 s High 20.0-30.5 [facility] Comment on above: Result Comment: ARPAN Kaplan COMMENTS:NOTE: The therapeutic time for Heparin anticoagulation, based on Xa activity inhibition, is an APTT of 46-80 seconds. Performed By: #### L AB325, [id number] ####Specialized Language Instructor: DOMENICA JARA ([id number])[address] BASIC METABOLIC PANELon Anion gap [Moles/Vol] 10 mmol/L Normal 3-13 [facility] Comment on above: Performed By: #### L AB15 ####Specialized Language Instructor: DOMENICA JARA ([id number])[address] [address] [place] Calcium [Mass/Vol] 9.2 mg/dL Normal 8.4-10.2 [facility] Comment on above: Performed By: #### L AB15 ####Specialized Language Instructor: DOMENICA JARA ([id number])[facility] [place] [address] Chloride [Moles/Vol] 100 mmol/L Normal 98-107 [facility] Comment on above: Performed By: #### L AB15 ####Specialized Language Instructor: DOMENICA JARA ([id number])[facility] [place] [address] CO2 [Moles/Vol] 29 mmol/L Normal 22-29 [facility] Comment on above: Performed By: #### L AB15 ####Specialized Language Instructor: DOMENICA JARA ([id number])[facility] [facility] [place] [address] Creatinine [Mass/Vol] 1.92 mg/dL High 0.72-1.25 [facility] Comment on above: Performed By: #### L AB15 ####Specialized Language Instructor: DOMENICA JARA ([id number])[facility] ([facility])[address] [place] [address] GLOMERULAR FILTRATION RATE ML/MIN/1.73 SQ M.PREDICTED 39.6 mL/min/1.73m*2 Low >60.0 [facility] Comment on above: Result Comment: Calc ulation based on the Chronic Kidney Disease Epidemiology Collaboration (CKD-EPI) equation refit without adjustment for race Performed By: #### L AB15 ####Specialized Language Instructor: DOMENICA JARA ([id number])[facility] ([facility])[address] [place] [address] [place] Glucose [Mass/Vol] 71 mg/dL Low 74-100 [facility] Comment on above: Performed By: #### L AB15 ####Specialized Language Instructor: DOMENICA JARA ([id number])[facility] ([facility])[address] [place] [address] [place] Potassium [Moles/Vol] 4.8 mmol/L Normal 3.5-5.1 [facility] Comment on above: Result Comment: [facility] potassium values may be up to 0.5 mmol/L lower than serum values. Performed By: #### L AB15 ####Specialized Language Instructor: DOMENICA JARA ([id number])[facility] [place] [address] Sodium [Moles/Vol] 139 mmol/L Normal 136-145 [facility] Comment on above: Performed By: #### L AB15 ####Specialized Language Instructor: DOMENICA JARA ([id number])[facility] ([facility])[address] [place] [address] Urea nitrogen [Mass/Vol] 14 mg/dL Normal 9-23 [facility] Comment on above: Performed By: #### L AB15 ####Specialized Language Instructor: DOMENICA JARA ([id number])[facility] ([facility])[address] [place] [address] Anion gap [Moles/Vol] 11 mmol/L Normal 3-13 [facility] Comment on above: Performed By: #### L AB15 ####Specialized Language Instructor: DOMENICA JARA ([id number])[facility] ([facility])[address] [place] [address] Calcium [Mass/Vol] 9.8 mg/dL Normal 8.4-10.2 [facility] Comment on above: Performed By: #### L AB15 ####Specialized Language Instructor: DOMENICA JARA ([phone])[facility] ([facility])[address] [place] [address] Chloride [Moles/Vol] 101 mmol/L Normal 98-107 [facility] Comment on above: Performed By: #### L AB15 ####Specialized Language Instructor: DOMENICA JARA ([id number])[facility] ([facility])[address] [place] [address] CO2 [Moles/Vol] 28 mmol/L Normal 22-29 [facility] Comment on above: Performed By: #### L AB15 ####Specialized Language Instructor: DOMENICA JARA ([id number])[facility] ([facility])[address] [place] [address] [place] Creatinine [Mass/Vol] 3.21 mg/dL High 0.72-1.25 [facility] Comment on above: Performed By: #### L AB15 ####Specialized Language Instructor: DOMENICA JARA ([id number])[facility])[address] [place] [address] [place] GLOMERULAR FILTRATION RATE ML/MIN/1.73 SQ M.PREDICTED 21.4 mL/min/1.73m*2 Low >60.0 [facility] Comment on above: Result Comment: Calc ulation based on the Chronic Kidney Disease Epidemiology Collaboration (CKD-EPI) equation refit without adjustment for race Performed By: #### L AB15 ####Specialized Language Instructor: DOMENICA JARA ([id number])[facility])[address] [place] [address] [place] Glucose [Mass/Vol] 93 mg/dL Normal 74-100 [facility] Comment on above: Performed By: #### L AB15 ####Specialized Language Instructor: DOMENICA JARA ([id number])[facility])[address] [place] [address] Potassium [Moles/Vol] 6.2 mmol/L Critically high 3.5-5.1 [facility] Comment on above: Result Comment: [facility] potassium values may be up to 0.5 mmol/L lower than serum values. Performed By: #### L AB15 ####Specialized Language Instructor: DOMENICA JARA ([id number])[facility] ([facility])[address] [place] [address] [place] Sodium [Moles/Vol] 140 mmol/L Normal 136-145 [facility] Comment on above: Performed By: #### L AB15 ####Specialized Language Instructor: DOMENICA JARA ([id number])[facility] ([facility])[address] [place] [address] [place] Urea nitrogen [Mass/Vol] 26 mg/dL High 9-23 [facility] Comment on above: Performed By: #### L AB15 ####Specialized Language Instructor: DOMENICA JARA ([id number])[address] Basic metabolic 1997 panelOr dered By: Piedad Alvarado on 03-03-2025 Anion gap [Moles/Vol] 10 mmol/L 3 - 13 mmol/L [facility] Calcium [Mass/Vol] 9.2 mg/dL 8.4 - 10. 2 mg/dL [facility] Chloride [Moles/Vol] 100 mmol/L 98 - 10 7 mmol/L [facility] CO2 [Moles/Vol] 29 mmol/L 22 - 29 mmol/L [facility] Creatinine [Mass/Vol] 1.92 mg/dL High 0.72 - 1.25 mg/dL [facility] GFR/1.73 sq M.predicted (S/P/Bld) [Vol rate/Area] 39.6 mL/min Low - PINF [facility] Glucose [Mass/Vol] 71 mg/dL Low 74 - 100 mg/dL [facility] Interpretation and review of laboratory results Abnormal [facility] Potassium [Moles/Vol] 4.8 mmol/L 3.5 - 5.1 mmol/L [facility] Sodium [Moles/Vol] 139 mmol/L 136 - 145 mmol/L [facility] Urea nitrogen [Mass/Vol] 14 mg/dL 9 - 23 mg/d L [facility] Basic metabolic 1997 panelOr dered By: Jenni Romano on 03-03-2025 Anion gap [Moles/Vol] 11 mmol/L 3 - 13 mmol/L [facility] Calcium [Mass/Vol] 9.8 mg/dL 8.4 - 10. 2 mg/dL [facility] Chloride [Moles/Vol] 101 mmol/L 98 - 10 7 mmol/L [facility] CO2 [Moles/Vol] 28 mmol/L 22 - 29 mmol/L [facility] Creatinine [Mass/Vol] 3.21 mg/dL High 0.72 - 1.25 mg/dL [facility] GFR/1.73 sq M.predicted (S/P/Bld) [Vol rate/Area] 21.4 mL/min Low - PINF [facility] Glucose [Mass/Vol] 93 mg/dL 74 - 100 mg/dL [facility] Interpretation and review of laboratory results Abnormal [facility] Potassium [Moles/Vol] 6.2 mmol/L Critically high 3.5 - 5.1 mmol/L [facility] Sodium [Moles/Vol] 140 mmol/L 136 - 145 mmol/L [facility] Urea nitrogen [Mass/Vol] 26 mg/dL High 9 - 23 mg/d L [facility] CBC (HEMOGRAM)on 03-03-2025 Erythrocyte distribution width (RBC) [Ratio] 20.9 % High 11.5-15.0 [facility] Comment on above: Performed By: #### L [id number] ####Specialized Language Instructor: DOMENICA JARA ([id number])[facility])[address] [place] [address] Hematocrit (Bld) [Volume fraction] 27.8 % Low 40.0-52.0 [facility] Comment on above: Performed By: #### L AB294 ####Specialized Language Instructor: DOMENICA JARA ([id number])[facility])[address] [place] [address] Hemoglobin (Bld) [Mass/Vol] 8.3 g/dL Low 13.0-18.0 [facility] Comment on above: Performed By: #### L AB294 ####Specialized Language Instructor: DOMENICA JARA ([id number])[facility])[address] [place] [address] [place] IPF 2 Normal [facility] Comment on above: Performed By: #### L AB294 ####Specialized Language Instructor: DOMENICA JARA ([id number])[facility])[address] [place] [address] MCH (RBC) [Entitic mass] 29.5 pg Normal 26.0-34.0 [facility] Comment on above: Performed By: #### L AB294 ####Specialized Language Instructor: DOMENICA JARA ([id number])[facility])[address] [place] [address] MCHC 29.9 % Low 30.5-36.0 [facility] Comment on above: Performed By: #### L AB294 ####Specialized Language Instructor: DOMENICA JARA ([id number])[facility] ([facility])[address] [place] [address] MCV (RBC) [Entitic vol] 98.9 fL Normal 77.0-99.0 S [facility] Comment on above: Performed By: #### L AB294 ####Specialized Language Instructor: DOMENICA JARA ([id number])[facility] ([facility])[address] [place] [address] Platelet mean volume (Bld) [Entitic vol] 9.1 fL Normal 9.0-12.7 [facility] Comment on above: Performed By: #### L AB294 ####Specialized Language Instructor: DOMENICA JARA ([id number])[facility] ([facility])[address] [place] [address] Platelets (Bld) [#/Vol] 397 10*3/uL Normal 140-440 [facility] Comment on above: Performed By: #### L AB294 ####Specialized Language Instructor: DOMENICA JARA ([id number])[facility] ([facility])[address] [place] [address] RBC (Bld) [#/Vol] 2.81 10*6/uL Low 4.40-5.90 [facility] Comment on above: Performed By: #### L AB294 ####Specialized Language Instructor: DOMENICA JARA ([id number])[facility] ([facility])[address] [place] [address] WBC (Bld) [#/Vol] 8.9 10*3/uL Normal 3.6-10.7 [facility] Comment on above: Performed By: #### L AB294 ####Specialized Language Instructor: DOMENICA JARA ([id number])[facility])[address] [place] [address] CBC panel Auto (Bld)Ordered By: Anu Graham on 03-03-2025 Erythrocyte distribution width (RBC) [Ratio] 20.9 % High 11.5 - 15.0 % [facility] Hematocrit (Bld) [Volume fraction] 27.8 % Low 40.0 - 52.0 % [facility] Hemoglobin (Bld) [Mass/Vol] 8.3 g/dL Low 13.0 - 18.0 g/dL [facility] Interpretation and review of laboratory results Abnormal [facility] IPF 2 [facility] MCH (RBC) [Entitic mass] 29.5 pg 26. 0 - 34.0 pg [facility] MCHC (RBC) [Mass/Vol] 29.9 % Low 30.5 - 36.0 % [facility] MCV (RBC) [Entitic vol] 98.9 fL 77.0 - 99.0 fL [facility] Platelet mean volume (Bld) [Entitic vol] 9.1 fL 9.0 - 12.7 fL [facility] Platelets (Bld) [#/Vol] 397 10*3/uL 140 - 440 10*3/uL [facility] RBC (Bld) [#/Vol] 2.81 10*6/uL Low 4.40 - 5.9 0 10*6/uL [facility] WBC (Bld) [#/Vol] 8.9 10*3/uL 3.6 - 10.7 10*3/uL [facility] Laboratory - Coagulationon 0 03-03-2025 PT Coag (Bld) [Time] 16.2 s High 9.0 - 12.0 s [facility] No Panel Informationon 03-03 Interpretation and review of laboratory results Abnormal [facility] Nursing Noteon 03-03-2025 Nursing Note Normal [facility] Nursing Note In patient's chart, d/t patient being on his call light excessively and finally telling me he wants something for pain. Please see eMAR for administration Normal [facility] PROTHROMBIN TIMEon INR Coag (PPP) [Relative time] 1.6 {INR} High 0.9-1.1 [facility] Comment on above: Result Comment: Vaughn mmended [...] Myocardial Infarction Performed By: #### L AB325, [id number] ####Specialized Language Instructor: DOMENICA JARA ([id number])[facility] ([facility])[address] [place] [address] PT Coag (PPP) [Time] 16.2 s High 9.0-12.0 [facility] Comment on above: Performed By: #### L AB325, [id number] ####Specialized Language Instructor: DOMENICA JARA ([id number])[facility] ([facility])[address] [place] [address] PT Coag (Bld) [Time]on 03-03 INR Coag (PPP) [Relative time] 1.6 {INR} High 0.9 - 1.1 [facility] Progress Noteon 03-03-2025 Progress Note Normal [facility] Progress Note Normal [facility] Progress Note Normal [facility] aPTT Coag (Bld) [Time]on aPTT Coag (PPP) [Time] 66.2 s High 20.0 - 30.5 s [facility] Interpretation and review of laboratory results Abnormal [facility] aPTT Coag (PPP) [Time] 52.4 s High 20.0 - 30.5 s [facility] 30on 03-02-2025 30 Switch to augmentin 500mg q24 (to be taken after HD on HD days) until 03/10/25. Team aware of discharge plan Waiting for INR to be in therapeutic range ID will sign off Please re consult if needed Hussain Quintana MD 03/02/2025 12:43 PM Normal [facility] 30 Normal [facility] [id number] 03-02-2025 [id number] Normal [facility] APTTon 03-02-2025 aPTT Coag (Bld) [Time] 68.9 s High 20.0-30.5 [facility] Comment on above: Result Comment: ARPAN Kaplan COMMENTS:NOTE: The therapeutic time for Heparin anticoagulation, based on Xa activity inhibition, is an APTT of 46-80 seconds. Performed By: #### L AB325 ####Specialized Language Instructor: DOMENICA JARA ([id number])[facility] ([facility])[address] [place] [address] aPTT Coag (Bld) [Time] 44.7 s High 20.0-30.5 [facility] Comment on above: Result Comment: ARPAN [facility] COMMENTS:NOTE: The therapeutic time for Heparin anticoagulation, based on Xa activity inhibition, is an APTT of 46-80 seconds. Performed By: #### L AB325 ####Specialized Language Instructor: DOMENICA JARA ([id number])[facility] ([facility])[address] [place] [address] aPTT Coag (Bld) [Time] 56.5 s High 20.0-30.5 [facility] Comment on above: Result Comment: ARPAN Kaplan COMMENTS:NOTE: The therapeutic time for Heparin anticoagulation, based on Xa activity inhibition, is an APTT of 46-80 seconds. Performed By: #### L AB325 ####Specialized Language Instructor: DOMENICA JARA ([id number])[facility] ([facility])[address] [place] [address] aPTT Coag (Bld) [Time] 44.7 s High 20.0-30.5 [facility] Comment on above: Result Comment: ARPAN Kaplan COMMENTS:NOTE: The therapeutic time for Heparin anticoagulation, based on Xa activity inhibition, is an APTT of 46-80 seconds. Performed By: #### L AB320, [id number] ####Specialized Language Instructor: DOMENICA JARA ([id number])[facility] ([facility])[address] [place] [address] BASIC METABOLIC PANELon 06-0 Anion gap [Moles/Vol] 11 mmol/L Normal 3-13 [facility] Comment on above: Performed By: #### L AB15 ####Specialized Language Instructor: DOMENICA JARA ([id number])[facility] ([facility])[address] [place] [address] Calcium [Mass/Vol] 9.2 mg/dL Normal 8.4-10.2 [facility] Comment on above: Performed By: #### L AB15 ####Specialized Language Instructor: DOMENICA JARA ([id number])[facility])[address] Chloride [Moles/Vol] 102 mmol/L Normal 98-107 [facility] Comment on above: Performed By: #### L AB15 ####Specialized Language Instructor: DOEMNICA JARA ([id number])[facility])[address] [place] [address] CO2 [Moles/Vol] 26 mmol/L Normal 22-29 [facility] Comment on above: Performed By: #### L AB15 ####Specialized Language Instructor: DOMENICA JARA ([id number])[facility] ([facility])[address] [place] [address] Creatinine [Mass/Vol] 2.53 mg/dL High 0.72-1.25 [facility] Comment on above: Performed By: #### L AB15 ####Specialized Language Instructor: DOMENICA JARA ([id number])[facility] ([facility])[address] [place] [address] [place] GLOMERULAR FILTRATION RATE ML/MIN/1.73 SQ M.PREDICTED 28.5 mL/min/1.73m*2 Low >60.0 [facility] Comment on above: Result Comment: Calc ulation based on the Chronic Kidney Disease Epidemiology Collaboration (CKD-EPI) equation refit without adjustment for race Performed By: #### L AB15 ####Specialized Language Instructor: DOMENICA JARA ([id number])[facility] ([facility])[address] [place] [address] [place] Glucose [Mass/Vol] 107 mg/dL High 74-100 [facility] Comment on above: Performed By: #### L AB15 ####Specialized Language Instructor: DOMENICA JARA ([id number])[facility] ([facility])[address] [place] [address] [place] Potassium [Moles/Vol] 4.6 mmol/L Normal 3.5-5.1 [facility] Comment on above: Result Comment: [facility] potassium values may be up to 0.5 mmol/L lower than serum values. Performed By: #### L AB15 ####Specialized Language Instructor: DOMENICA JARA ([id number])[facility] ([facility])[address] [place] [address] Sodium [Moles/Vol] 139 mmol/L Normal 136-145 [facility] Comment on above: Performed By: #### L AB15 ####Specialized Language Instructor: DOMENICA JARA ([id number])[facility] [place] [address] Urea nitrogen [Mass/Vol] 16 mg/dL Normal 9-23 [facility] Comment on above: Performed By: #### L AB15 ####Specialized Language Instructor: DOMENICA JARA ([id number])[facility] [place] [address] Basic metabolic 1998 panelon 03-02-2025 Anion gap [Moles/Vol] 11 mmol/L 3 - 13 mmol/L [facility] Calcium [Mass/Vol] 9.2 mg/dL 8.4 - 10. 2 mg/dL [facility] Chloride [Moles/Vol] 102 mmol/L 98 - 10 7 mmol/L [facility] CO2 [Moles/Vol] 26 mmol/L 22 - 29 mmol/L [facility] Creatinine [Mass/Vol] 2.53 mg/dL High 0.72 - 1.25 mg/dL [facility] GFR/1.73 sq M.predicted (S/P/Bld) [Vol rate/Area] 28.5 mL/min Low - PINF [facility] Glucose [Mass/Vol] 107 mg/dL High 74 - 100 mg/dL [facility] Interpretation and review of laboratory results Abnormal [facility] Potassium [Moles/Vol] 4.6 mmol/L 3.5 - 5.1 mmol/L [facility] Sodium [Moles/Vol] 139 mmol/L 136 - 145 mmol/L [facility] Urea nitrogen [Mass/Vol] 16 mg/dL 9 - 23 mg/d L [facility] CBC (HEMOGRAM)on 03-02-2025 Erythrocyte distribution width (RBC) [Ratio] 20.1 % High 11.5-15.0 [facility] Comment on above: Performed By: #### L [id number] ####Specialized Language Instructor: DOMENICA JARA ([id number])[facility])[address] [place] [address] Hematocrit (Bld) [Volume fraction] 25.4 % Low 40.0-52.0 [facility] Comment on above: Performed By: #### L [id number] ####Specialized Language Instructor: DOMENICA JARA ([id number])[address] Hemoglobin (Bld) [Mass/Vol] 7.7 g/dL Low 13.0-18.0 [facility] Comment on above: Performed By: #### L AB294 ####Specialized Language Instructor: DOMENICA JARA ([id number])[address] IPF 2 Normal [facility] Comment on above: Performed By: #### L AB294 ####Specialized Language Instructor: DOMENICA JARA ([id number])[address] MCH (RBC) [Entitic mass] 29.7 pg Normal 26.0-34.0 [facility] Comment on above: Performed By: #### L AB294 ####Specialized Language Instructor: DOMENICA JAAR ([id number])[address] MCHC 30.3 % Low 30.5-36.0 [facility] Comment on above: Performed By: #### L AB294 ####Specialized Language Instructor: DOMENICA JARA ([id number])[facility])[address] [place] [address] MCV (RBC) [Entitic vol] 98.1 fL Normal 77.0-99.0 [facility] Comment on above: Performed By: #### L AB294 ####Specialized Language Instructor: DOMENICA JARA ([id number])[facility] ([facility])[address] [place] [address] Platelet mean volume (Bld) [Entitic vol] 9.0 fL Normal 9.0-12.7 [facility] Comment on above: Performed By: #### L AB294 ####Specialized Language Instructor: DOMENICA JARA ([id number])[facility] ([facility])[address] [place] [address] Platelets (Bld) [#/Vol] 354 10*3/uL Normal 140-440 [facility] Comment on above: Performed By: #### L [id number] ####Specialized Language Instructor: DOMENICA JARA ([id number])[facility])[address] [place] [address] RBC (Bld) [#/Vol] 2.59 10*6/uL Low 4.40-5.90 [facility] Comment on above: Performed By: #### L [id number] ####Specialized Language Instructor: DOMENICA JARA ([id number])[facility] ([facility])[address] [place] [address] WBC (Bld) [#/Vol] 7.4 10*3/uL Normal 3.6-10.7 [facility] Comment on above: Performed By: #### L [id number] ####Specialized Language Instructor: DOMENICA JARA ([id number])[facility])[address] [place] [address] CBC panel Auto (Bld)Ordered By: Callie Steele on 03-02-2025 Erythrocyte distribution width (RBC) [Ratio] 20.1 % High 11.5 - 15.0 % [facility] Hematocrit (Bld) [Volume fraction] 25.4 % Low 40.0 - 52.0 % [facility] Hemoglobin (Bld) [Mass/Vol] 7.7 g/dL Low 13.0 - 18.0 g/dL [facility] Interpretation and review of laboratory results Abnormal [facility] IPF 2 [facility] MCH (RBC) [Entitic mass] 29.7 pg 26. 0 - 34.0 pg [facility] MCHC (RBC) [Mass/Vol] 30.3 % Low 30.5 - 36.0 % [facility] MCV (RBC) [Entitic vol] 98.1 fL 77.0 - 99.0 fL [facility] Platelet mean volume (Bld) [Entitic vol] 9 fL 9.0 - 12.7 fL [facility] Platelets (Bld) [#/Vol] 354 10*3/uL 140 - 440 10*3/uL [facility] RBC (Bld) [#/Vol] 2.59 10*6/uL Low 4.40 - 5.9 0 10*6/uL [facility] WBC (Bld) [#/Vol] 7.4 10*3/uL 3.6 - 10.7 10*3/uL [facility] Laboratory - Coagulationon 0 03-02-2025 PT Coag (Bld) [Time] 14.7 s High 9.0 - 12.0 s [facility] No Panel Informationon 03-02 Interpretation and review of laboratory results Abnormal [facility] PROTHROMBIN TIMEon INR Coag (PPP) [Relative time] 1.4 {INR} High 0.9-1.1 [facility] Comment on above: Result Comment: Vaughn mmended [...] Myocardial Infarction Performed By: #### Tameka AB320, [id number] ####Specialized Language Instructor: DOMENICA JARA ([id number])[facility] ([address] PT Coag (PPP) [Time] 14.7 s High 9.0-12.0 [facility] Comment on above: Performed By: #### Tameka AB320, [id number] ####Specialized Language Instructor: DOMENICA JARA ([id number])[facility])[address] [place] [address] PT Coag (Bld) [Time]on 03-02 INR Coag (PPP) [Relative time] 1.4 {INR} High 0.9 - 1.1 [facility] Progress Noteon 03-02-2025 Progress Note Normal [facility] Progress Note Normal [facility] Progress Note Normal [facility] aPTT Coag (Bld) [Time]on aPTT Coag (PPP) [Time] 68.9 s High 20.0 - 30.5 s [facility] Interpretation and review of laboratory results Abnormal [facility] aPTT Coag (PPP) [Time] 44.7 s High 20.0 - 30.5 s [facility] Interpretation and review of laboratory results Abnormal [facility] aPTT Coag (PPP) [Time] 56.5 s High 20.0 - 30.5 s [facility] Interpretation and review of laboratory results Abnormal [facility] aPTT Coag (PPP) [Time] 44.7 s High 20.0 - 30.5 s [facility] 30on 03-01-2025 30 Normal [facility] [id number] 03-01-2025 [id number] Discharge med list and updated notes transmitted to [facility] via [facility] per TCC request. Normal [facility] [id number] Normal [facility] APTTon 03-01-2025 aPTT Coag (Bld) [Time] 51.3 s High 20.0-30.5 [facility] Comment on above: Result Comment: TRAVISE R COMMENTS:NOTE: The therapeutic time for Heparin anticoagulation, based on Xa activity inhibition, is an APTT of 46-80 seconds. Performed By: #### L AB320, [id number] ####Specialized Language Instructor: DOMENICA JARA ([id number])[facility] ([facility])[address] [place] [address] BASIC METABOLIC PANELon Anion gap [Moles/Vol] 13 mmol/L Normal 3-13 [facility] Comment on above: Performed By: #### L AB15 ####Specialized Language Instructor: DOMENICA JARA ([id number])[facility] [place] [address] Calcium [Mass/Vol] 9.6 mg/dL Normal 8.4-10.2 [facility] Comment on above: Performed By: #### L AB15 ####Specialized Language Instructor: DOMENICA JARA ([id number])[facility] [place] [address] Chloride [Moles/Vol] 102 mmol/L Normal 98-107 [facility] Comment on above: Performed By: #### L AB15 ####Specialized Language Instructor: DOMENICA JARA ([id number])[facility] ([facility])[address] [place] [address] CO2 [Moles/Vol] 23 mmol/L Normal 22-29 [facility] Comment on above: Performed By: #### L AB15 ####Specialized Language Instructor: DOMENICA JARA ([id number])[facility] ([facility])[address] [place] [address] Creatinine [Mass/Vol] 3.73 mg/dL High 0.72-1.25 [facility] Comment on above: Performed By: #### L AB15 ####Specialized Language Instructor: DOMENICA JARA ([id number])[facility] ([facility])[address] [place] [address] GLOMERULAR FILTRATION RATE ML/MIN/1.73 SQ M.PREDICTED 17.9 mL/min/1.73m*2 Low >60.0 [facility] Comment on above: Result Comment: Calc ulation based on the Chronic Kidney Disease Epidemiology Collaboration (CKD-EPI) equation refit without adjustment for race Performed By: #### L AB15 ####Specialized Language Instructor: DOMENICA JARA ([id number])[facility] [place] [address] Glucose [Mass/Vol] 87 mg/dL Normal 74-100 [facility] Comment on above: Performed By: #### L AB15 ####Specialized Language Instructor: DOMENICA JARA ([id number])[facility] ([facility])[address] [place] [address] Potassium [Moles/Vol] 5.8 mmol/L High 3.5-5.1 [facility] Comment on above: Result Comment: [facility] potassium values may be up to 0.5 mmol/L lower than serum values. Performed By: #### L AB15 ####Specialized Language Instructor: DOMENICA JARA ([phone])[facility] [place] [address] Sodium [Moles/Vol] 138 mmol/L Normal 136-145 [facility] Comment on above: Performed By: #### L AB15 ####Specialized Language Instructor: DOMENICA JARA ([id number])[facility] ([facility])[address] [place] [address] Urea nitrogen [Mass/Vol] 28 mg/dL High 9-23 [facility] Comment on above: Performed By: #### L AB15 ####Specialized Language Instructor: DOMENICA JARA ([id number])[facility] ([facility])[address] [place] [address] Basic metabolic 1998 panelon 03-01-2025 Anion gap [Moles/Vol] 13 mmol/L 3 - 13 mmol/L [facility] Calcium [Mass/Vol] 9.6 mg/dL 8.4 - 10. 2 mg/dL [facility] Chloride [Moles/Vol] 102 mmol/L 98 - 10 7 mmol/L [facility] CO2 [Moles/Vol] 23 mmol/L 22 - 29 mmol/L [facility] Creatinine [Mass/Vol] 3.73 mg/dL High 0.72 - 1.25 mg/dL [facility] GFR/1.73 sq M.predicted (S/P/Bld) [Vol rate/Area] 17.9 mL/min Low - PINF [facility] Glucose [Mass/Vol] 87 mg/dL 74 - 100 mg/dL [facility] Interpretation and review of laboratory results Abnormal [facility] Potassium [Moles/Vol] 5.8 mmol/L High 3.5 - 5.1 mmol/L [facility] Sodium [Moles/Vol] 138 mmol/L 136 - 145 mmol/L [facility] Urea nitrogen [Mass/Vol] 28 mg/dL High 9 - 23 mg/d L [facility] CBC (HEMOGRAM)on 03-01-2025 Erythrocyte distribution width (RBC) [Ratio] 19.7 % High 11.5-15.0 [facility] Comment on above: Performed By: #### L [id number] ####Specialized Language Instructor: DOMENICA JARA ([id number])[facility])[address] [place] [address] Hematocrit (Bld) [Volume fraction] 26.9 % Low 40.0-52.0 [facility] Comment on above: Performed By: #### L AB294 ####Specialized Language Instructor: DOMENICA JARA ([id number])[facility])[address] [place] [address] Hemoglobin (Bld) [Mass/Vol] 8.0 g/dL Low 13.0-18.0 [facility] Comment on above: Performed By: #### L AB294 ####Specialized Language Instructor: DOMENICA JARA ([id number])[facility])[address] [place] [address] MCH (RBC) [Entitic mass] 28.8 pg Normal 26.0-34.0 [facility] Comment on above: Performed By: #### L [id number] ####Specialized Language Instructor: DOMENICA JARA ([id number])[facility])[address] [place] [address] MCHC 29.7 % Low 30.5-36.0 [facility] Comment on above: Performed By: #### L AB294 ####Specialized Language Instructor: DOMENICA JARA ([id number])[facility])[address] [place] [address] MCV (RBC) [Entitic vol] 96.8 fL Normal 77.0-99.0 [facility] Comment on above: Performed By: #### L AB294 ####Specialized Language Instructor: DOMENICA JARA ([id number])[facility] ([facility])[address] [place] [address] Platelet mean volume (Bld) [Entitic vol] 8.7 fL Low 9.0-12.7 [facility] Comment on above: Performed By: #### L AB294 ####Specialized Language Instructor: DOMENICA JARA ([id number])[facility] ([facility])[address] [place] [address] Platelets (Bld) [#/Vol] 306 10*3/uL Normal 140-440 [facility] Comment on above: Performed By: #### L AB294 ####Specialized Language Instructor: DOMENICA JARA ([id number])[facility] ([facility])[address] [place] [address] RBC (Bld) [#/Vol] 2.78 10*6/uL Low 4.40-5.90 [facility] Comment on above: Performed By: #### L AB294 ####Specialized Language Instructor: DOMENICA JARA ([id number])[facility] ([facility])[address] [place] [address] WBC (Bld) [#/Vol] 7.5 10*3/uL Normal 3.6-10.7 [facility] Comment on above: Performed By: #### L AB294 ####Specialized Language Instructor: DOMENICA JARA ([id number])[facility] ([facility])[address] [place] [address] CBC panel Auto (Bld)on 03-01 Erythrocyte distribution width (RBC) [Ratio] 19.7 % High 11.5 - 15.0 % [facility] Hematocrit (Bld) [Volume fraction] 26.9 % Low 40.0 - 52.0 % [facility] Hemoglobin (Bld) [Mass/Vol] 8 g/dL Low 13.0 - 18.0 g/dL [facility] Interpretation and review of laboratory results Abnormal [facility] MCH (RBC) [Entitic mass] 28.8 pg 26. 0 - 34.0 pg [facility] MCHC (RBC) [Mass/Vol] 29.7 % Low 30.5 - 36.0 % [facility] MCV (RBC) [Entitic vol] 96.8 fL 77.0 - 99.0 fL [facility] Platelet mean volume (Bld) [Entitic vol] 8.7 fL Low 9.0 - 12.7 fL [facility] Platelets (Bld) [#/Vol] 306 10*3/uL 140 - 440 10*3/uL [facility] RBC (Bld) [#/Vol] 2.78 10*6/uL Low 4.40 - 5.9 0 10*6/uL [facility] WBC (Bld) [#/Vol] 7.5 10*3/uL 3.6 - 10.7 10*3/uL [facility] Laboratory - Coagulationon 0 03-01-2025 PT Coag (Bld) [Time] 14.3 s High 9.0 - 12.0 s [facility] No Panel Informationon 03-01 Interpretation and review of laboratory results Abnormal [facility] Nursing Noteon 03-01-2025 Nursing Note Normal [facility] PROTHROMBIN TIMEon INR Coag (PPP) [Relative time] 1.4 {INR} High 0.9-1.1 [facility] Comment on above: Result Comment: Vaughn mmended [...] Myocardial Infarction Performed By: #### L AB320, [id number] ####Specialized Language Instructor: DOMENICA JARA ([id number])[facility] ([address] PT Coag (PPP) [Time] 14.3 s High 9.0-12.0 [facility] Comment on above: Performed By: #### L AB320, [id number] ####Specialized Language Instructor: DOMENICA JARA ([id number])[facility] ([facility])[address] [place] [address] PT Coag (Bld) [Time]on 03-01 INR Coag (PPP) [Relative time] 1.4 {INR} High 0.9 - 1.1 [facility] Progress Noteon 03-01-2025 Progress Note Normal [facility] Progress Note Normal [facility] Progress Note Normal [facility] Progress Note Normal [facility] Progress Note PHYSICAL THERAPY [facility] Name/MRN: Jair Snyder ([id number]) Date: 03/01/2025 Leaving for dialysis. Return later time/date for PT. Merlene León, JOY Normal [facility] Progress Note Normal [facility] aPTT Coag (Bld) [Time]on aPTT Coag (PPP) [Time] 51.3 s High 20.0 - 30.5 s [facility] 30on 02-28-2025 30 Normal [facility] 30 Normal [facility] [id number] 02-28-2025 [id number] Auth is back however can not discharge still on hep gtt- auth good thru 03/02- hoping by Wednesday AM . Updated snf . [facility] [phone] Transport requested in [employer] in will call per TCC. 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 Performed By: #### L AB325, [id number] ####Specialized Language Instructor: DOMENICA JARA ([id number])[facility] ([facility])[address] [place] [address] BASIC METABOLIC PANELon 06-0 Anion gap [Moles/Vol] 11 mmol/L Normal 3-13 [facility] Comment on above: Performed By: #### L AB15 ####Specialized Language Instructor: DOMENICA JARA ([id number])[facility] ([facility])[address] [place] [address] Calcium [Mass/Vol] 9.3 mg/dL Normal 8.4-10.2 [facility] Comment on above: Performed By: #### L AB15 ####Specialized Language Instructor: DOMENICA JARA ([id number])[facility] ([facility])[address] [place] [address] Chloride [Moles/Vol] 100 mmol/L Normal 98-107 [facility] Comment on above: Performed By: #### L AB15 ####Specialized Language Instructor: DOMENICA JARA ([id number])[facility] [place] [address] CO2 [Moles/Vol] 27 mmol/L Normal 22-29 [facility] Comment on above: Performed By: #### L AB15 ####Specialized Language Instructor: DOMENICA JARA ([id number])[facility] ([facility])[address] [place] [address] Creatinine [Mass/Vol] 3.06 mg/dL High 0.72-1.25 [facility] Comment on above: Performed By: #### L AB15 ####Specialized Language Instructor: DOMENICA JARA ([id number])[facility] ([facility])[address] [place] [address] [place] GLOMERULAR FILTRATION RATE ML/MIN/1.73 SQ M.PREDICTED 22.7 mL/min/1.73m*2 Low >60.0 [facility] Comment on above: Result Comment: Calc ulation based on the Chronic Kidney Disease Epidemiology Collaboration (CKD-EPI) equation refit without adjustment for race Performed By: #### L AB15 ####Specialized Language Instructor: DOMENICA JARA ([id number])[facility] ([facility])[address] [place] [address] Glucose [Mass/Vol] 94 mg/dL Normal 74-100 [facility] Comment on above: Performed By: #### L AB15 ####Specialized Language Instructor: DOMENICA JARA ([id number])[facility] ([facility])[address] [place] [address] Potassium [Moles/Vol] 5.0 mmol/L Normal 3.5-5.1 [facility] Comment on above: Result Comment: [facility] potassium values may be up to 0.5 mmol/L lower than serum values. Performed By: #### L AB15 ####Specialized Language Instructor: DOEMNICA JARA ([id number])[facility] ([facility])[address] [place] [address] Sodium [Moles/Vol] 138 mmol/L Normal 136-145 [facility] Comment on above: Performed By: #### L AB15 ####Specialized Language Instructor: DOMENICA JARA ([id number])[facility] ([facility])[address] [place] [address] Urea nitrogen [Mass/Vol] 19 mg/dL Normal 9-23 [facility] Comment on above: Performed By: #### L AB15 ####Specialized Language Instructor: DOMENICA JARA ([id number])[facility])[address] [place] [address] Basic metabolic 1998 panelon 02-28-2025 Anion gap [Moles/Vol] 11 mmol/L 3 - 13 mmol/L [facility] Calcium [Mass/Vol] 9.3 mg/dL 8.4 - 10. 2 mg/dL [facility] Chloride [Moles/Vol] 100 mmol/L 98 - 10 7 mmol/L [facility] CO2 [Moles/Vol] 27 mmol/L 22 - 29 mmol/L [facility] Creatinine [Mass/Vol] 3.06 mg/dL High 0.72 - 1.25 mg/dL [facility] GFR/1.73 sq M.predicted (S/P/Bld) [Vol rate/Area] 22.7 mL/min Low - PINF [facility] Glucose [Mass/Vol] 94 mg/dL 74 - 100 mg/dL [facility] Interpretation and review of laboratory results Abnormal [facility] Potassium [Moles/Vol] 5 mmol/L 3.5 - 5.1 mmol/L [facility] Sodium [Moles/Vol] 138 mmol/L 136 - 145 mmol/L [facility] Urea nitrogen [Mass/Vol] 19 mg/dL 9 - 23 mg/d L [facility] CBC (HEMOGRAM)on 02-28-2025 Erythrocyte distribution width (RBC) [Ratio] 19.8 % High 11.5-15.0 [facility] Comment on above: Performed By: #### L [id number] ####Specialized Language Instructor: DOMENICA JARA ([id number])[facility])[address] [place] [address] Hematocrit (Bld) [Volume fraction] 26.9 % Low 40.0-52.0 [facility] Comment on above: Performed By: #### L AB294 ####Specialized Language Instructor: DOMENICA JARA ([id number])[facility] ([facility])[address] [place] [address] Hemoglobin (Bld) [Mass/Vol] 8.2 g/dL Low 13.0-18.0 [facility] Comment on above: Performed By: #### L AB294 ####Specialized Language Instructor: DOMENICA JARA ([id number])[facility] ([facility])[address] [place] [address] MCH (RBC) [Entitic mass] 29.3 pg Normal 26.0-34.0 [facility] Comment on above: Performed By: #### L AB294 ####Specialized Language Instructor: DOMENICA JARA ([id number])[facility])[address] [place] [address] MCHC 30.5 % Normal 30.5-36.0 [facility] Comment on above: Performed By: #### L AB294 ####Specialized Language Instructor: DOMENICA [id number])[facility] ([address] MCV (RBC) [Entitic vol] 96.1 fL Normal 77.0-99.0 [facility] Comment on above: Performed By: #### L AB294 ####Specialized Language Instructor: DOMENICA JARA ([id number])[facility])[address] [place] [address] Platelet mean volume (Bld) [Entitic vol] 9.0 fL Normal 9.0-12.7 [facility] Comment on above: Performed By: #### L AB294 ####Specialized Language Instructor: DOMENICA JARA ([id number])[facility])[address] [place] [address] Platelets (Bld) [#/Vol] 324 10*3/uL Normal 140-440 [facility] Comment on above: Performed By: #### L AB294 ####Specialized Language Instructor: DOMENICA JARA ([id number])[facility] ([facility])[address] [place] [address] RBC (Bld) [#/Vol] 2.80 10*6/uL Low 4.40-5.90 [facility] Comment on above: Performed By: #### L AB294 ####Specialized Language Instructor: DOMENICA JARA ([id number])[facility])[address] [place] [address] WBC (Bld) [#/Vol] 8.0 10*3/uL Normal 3.6-10.7 [facility] Comment on above: Performed By: #### L AB294 ####Specialized Language Instructor: DOMENICA JARA ([id number])[facility])[address] [place] [address] CBC panel Auto (Bld)Ordered By: Giancarlo Lakhani on 02-28-2025 Erythrocyte distribution width (RBC) [Ratio] 19.8 % High 11.5 - 15.0 % [facility] Hematocrit (Bld) [Volume fraction] 26.9 % Low 40.0 - 52.0 % [facility] Hemoglobin (Bld) [Mass/Vol] 8.2 g/dL Low 13.0 - 18.0 g/dL [facility] Interpretation and review of laboratory results Abnormal [facility] MCH (RBC) [Entitic mass] 29.3 pg 26. 0 - 34.0 pg [facility] MCHC (RBC) [Mass/Vol] 30.5 % 30.5 - 36.0 % [facility] MCV (RBC) [Entitic vol] 96.1 fL 77.0 - 99.0 fL [facility] Platelet mean volume (Bld) [Entitic vol] 9 fL 9.0 - 12.7 fL [facility] Platelets (Bld) [#/Vol] 324 10*3/uL 140 - 440 10*3/uL [facility] RBC (Bld) [#/Vol] 2.8 10*6/uL Low 4.40 - 5.9 0 10*6/uL [facility] WBC (Bld) [#/Vol] 8 10*3/uL 3.6 - 10.7 10*3/uL [facility] Laboratory - Coagulationon 0 02-28-2025 PT Coag (Bld) [Time] 14 s High 9.0 - 12.0 s [facility] No Panel Informationon 02-28 Interpretation and review of laboratory results Abnormal [facility] Nursing Noteon 02-28-2025 Nursing Note Normal [facility] PROTHROMBIN TIMEon INR Coag (PPP) [Relative time] 1.3 {INR} High 0.9-1.1 [facility] Comment on above: Result Comment: Vaughn mmended [...] Myocardial Infarction Performed By: #### L AB325, [id number] ####Specialized Language Instructor: DOMENICA JARA ([id number])[facility] ([facility])[address] [place] [address] [place] PT Coag (PPP) [Time] 14.0 s High 9.0-12.0 [facility] Comment on above: Performed By: #### L AB325, [id number] ####Specialized Language Instructor: DOMENICA JARA ([id number])[facility] ([facility])[address] [place] [address] [place] PT Coag (Bld) [Time]on 02-28 INR Coag (PPP) [Relative time] 1.3 {INR} High 0.9 - 1.1 [facility] Progress Noteon 02-28-2025 Progress Note Normal [facility] Progress Note Normal [facility] Progress Note Normal [facility] Progress Note Normal [facility] aPTT Coag (Bld) [Time]on aPTT Coag (PPP) [Time] 47.7 s High 20.0 - 30.5 s [facility] 30on 02-27-2025 30 Normal [facility] 30 Normal [facility] [id number] 02-27-2025 [id number] Normal [facility] APTTon 02-27-2025 aPTT Coag (Bld) [Time] 55.6 s High 20.0-30.5 [facility] Comment on above: Result Comment: ARPAN Kaplan COMMENTS:NOTE: The therapeutic time for Heparin anticoagulation, based on Xa activity inhibition, is an APTT of 46-80 seconds. Performed By: #### L AB325, [id number] ####Specialized Language Instructor: DOMENICA JARA ([id number])[facility] ([facility])[address] [place] [address] [place] Bacteria identified Cx Nom ( Bld)on 02-27-2025 Interpretation and review of laboratory results Normal [facility] Interpretation and review of laboratory results Normal [facility] CBC (HEMOGRAM)on 02-27-2025 Erythrocyte distribution width (RBC) [Ratio] 19.5 % High 11.5-15.0 [facility] Comment on above: Performed By: #### L AB294 ####Specialized Language Instructor: DOMENICA JARA ([id number])[facility] ([facility])[address] [place] [address] Hematocrit (Bld) [Volume fraction] 28.8 % Low 40.0-52.0 [facility] Comment on above: Performed By: #### L AB294 ####Specialized Language Instructor: DOMENICA JARA ([id number])[facility])[address] [place] [address] Hemoglobin (Bld) [Mass/Vol] 8.6 g/dL Low 13.0-18.0 [facility] Comment on above: Performed By: #### L AB294 ####Specialized Language Instructor: DOMENICA JARA ([id number])[facility])[address] [place] [address] MCH (RBC) [Entitic mass] 28.7 pg Normal 26.0-34.0 [facility] Comment on above: Performed By: #### L AB294 ####Specialized Language Instructor: DOMENICA JARA ([id number])[facility] ([facility])[address] [place] [address] MCHC 29.9 % Low 30.5-36.0 [facility] Comment on above: Performed By: #### L AB294 ####Specialized Language Instructor: DOMENICA JARA ([id number])[facility] ([facility])[address] [place] [address] MCV (RBC) [Entitic vol] 96.0 fL Normal 77.0-99.0 [facility] Comment on above: Performed By: #### L AB294 ####Specialized Language Instructor: DOMENICA JARA ([id number])[facility] ([facility])[address] [place] [address] Platelet mean volume (Bld) [Entitic vol] 8.9 fL Low 9.0-12.7 [facility] Comment on above: Performed By: #### L AB294 ####Specialized Language Instructor: DOMENICA JARA ([id number])[facility] ([facility])[address] [place] [address] Platelets (Bld) [#/Vol] 302 10*3/uL Normal 140-440 [facility] Comment on above: Performed By: #### L AB294 ####Specialized Language Instructor: DOMENICA JARA ([id number])[facility])[address] [place] [address] RBC (Bld) [#/Vol] 3.00 10*6/uL Low 4.40-5.90 [facility] Comment on above: Performed By: #### L [id number] ####Specialized Language Instructor: DOMENICA JARA ([id number])[facility])[address] [place] [address] WBC (Bld) [#/Vol] 7.9 10*3/uL Normal 3.6-10.7 [facility] Comment on above: Performed By: #### L [id number] ####Specialized Language Instructor: DOMENICA JARA ([id number])[facility])[address] [place] [id number] CBC panel Auto (Bld)Ordered By: Brandy Ross on 02-27-2025 Erythrocyte distribution width (RBC) [Ratio] 19.5 % High 11.5 - 15.0 % [facility] Hematocrit (Bld) [Volume fraction] 28.8 % Low 40.0 - 52.0 % [facility] Hemoglobin (Bld) [Mass/Vol] 8.6 g/dL Low 13.0 - 18.0 g/dL [facility] Interpretation and review of laboratory results Abnormal [facility] MCH (RBC) [Entitic mass] 28.7 pg 26. 0 - 34.0 pg [facility] MCHC (RBC) [Mass/Vol] 29.9 % Low 30.5 - 36.0 % [facility] MCV (RBC) [Entitic vol] 96 fL 77.0 - 99.0 fL [facility] Platelet mean volume (Bld) [Entitic vol] 8.9 fL Low 9.0 - 12.7 fL [facility] Platelets (Bld) [#/Vol] 302 10*3/uL 140 - 440 10*3/uL [facility] RBC (Bld) [#/Vol] 3 10*6/uL Low 4.40 - 5.9 0 10*6/uL [facility] WBC (Bld) [#/Vol] 7.9 10*3/uL 3.6 - 10.7 10*3/uL [facility] R&V ECG 12-LEADon 02-27-2025 ECG 12-LEAD IMPRESSION: Sinus rhythm Left atrial enlargement RBBB and LPFB Abnrm T, consider ischemia, anterolateral lds Compared to ECG 01/19/2025 06:31:48 Prolonged QT interval no longer present Electronically Signed On 02-27-2025 16:08:17 EDT by Ochoa Guido Normal [facility] Laboratory - Coagulationon 0 02-27-2025 PT Coag (Bld) [Time] 13.7 s High 9.0 - 12.0 s [facility] Laboratory - Microbiology an d Antimicrobial susceptibilityon 02-27-2025 Bacteria identified Cx Nom (Bld) No growth at 5 days [facility] R&V Bacteria identified Cx Nom (Bld) No growth at 5 days [facility] R&V No Panel InformationOrdered By: Ochoa Guido on 02-27-2025 P Ama 76 degrees [facility] R&V Work Phone: WI Interval 150 ms [facility] Work Phone: QRS Ama 92 degrees [facility] R&V Work Phone: QRSD Interval 124 ms [facility] h Work Phone: QT Interval 417 ms [facility] Work Phone: QTC Interval 482 ms [facility] Work Phone: T Wave Ama 95 degrees [facility] Work Phone: [facility] Work Phone: No Panel Informationon 02-27 CV EPIPHANY [facility] Interpretation and review of laboratory results Abnormal [facility] Nursing Noteon 02-27-2025 Nursing Note Normal [facility] Nursing Note Normal [facility] PROTHROMBIN TIMEon INR Coag (PPP) [Relative time] 1.3 {INR} High 0.9-1.1 [facility] Comment on above: Result Comment: Vaughn mmended [...] Myocardial Infarction Performed By: #### Tameka AB325, [id number] ####Specialized Language Instructor: DOMENICA JARA ([id number])[facility])[address] [place] [address] PT Coag (PPP) [Time] 13.7 s High 9.0-12.0 [facility] Comment on above: Performed By: #### Tameka AB325, [id number] ####Specialized Language Instructor: DOMENICA JARA ([id number])[address] PT Coag (Bld) [Time]on 02-27 INR Coag (PPP) [Relative time] 1.3 {INR} High 0.9 - 1.1 [facility] Progress Noteon 02-27-2025 Progress Note Normal [facility] Progress Note Normal [facility] Progress Note Normal [facility] Progress Note Normal [facility] Vital signsOrdered By: Ochoa Guido on 02-27-2025 Heart rate 80 /min bpm [facility] Work Phone: aPTT Coag (Bld) [Time]on aPTT Coag (PPP) [Time] 55.6 s High 20.0 - 30.5 s [facility] 30on 02-26-2025 30 Normal [facility] [id number] 02-26-2025 [id number] Normal [facility] [id number] 02-26-2025 [id number] Getting updated therapy notes. Want to skill him at [facility]. Started on IV antibiotics for aspiration pneumonia. Continues on a heparin gtt. . [facility] [id number] Updated notes sent to [facility] via [facility] per T[facility] request. Await review and response regarding ability to accept. [facility]CC notified. [facility] 36on 02-26-2025 36 Normal [facility] CBC W/Diff, Automatedon Absolute Neut Normal 2.0-7.7 [facility] Comment on above: Order Comment: 413-2 Result Comment: KIMBER ENT DISCHARGED Performed By: #### L 100.0100, L300.3900, L500.4050 #### [facility] Laboratory [address] [place], [address] HCT Normal 40-54 [facility] Comment on above: Order Comment: 413-2 Result Comment: KIMBER ENT DISCHARGED Performed By: #### L 100.0100, L300.3900, L500.4050 #### [facility] Laboratory [address] [place], [address] HGB Normal 13.0-16.5 [facility] Comment on above: Order Comment: 413-2 Result Comment: KIMBER ENT DISCHARGED Performed By: #### L 100.0100, L300.3900, L500.4050 #### [facility] [address] [place], [address] MCH Normal 27.0-32.0 [facility] Comment on above: Order Comment: 413-2 Result Comment: KIMBER ENT DISCHARGED Performed By: #### L 100.0100, L300.3900, L500.4050 #### [facility] [address] [place], [address] MCHC Normal 32-36 [facility] Comment on above: Order Comment: 413-2 Result Comment: KIMBER ENT DISCHARGED Performed By: #### L 100.0100, L300.3900, L500.4050 #### [facility] [address] [place], [address] MCV Normal 80-94 [facility] Comment on above: Order Comment: 413-2 Result Comment: KIMBER ENT DISCHARGED Performed By: #### L 100.0100, L300.3900, L500.4050 #### [facility] [address] [place], [address] NEUT% Normal 47-70 [facility] Comment on above: Order Comment: 413-2 Result Comment: KIMBER ENT DISCHARGED Performed By: #### L 100.0100, L300.3900, L500.4050 #### [facility] [address] [place], [address] PLT Normal 150-450 [facility] Comment on above: Order Comment: 413-2 Result Comment: KIMBER ENT DISCHARGED Performed By: #### L 100.0100, L300.3900, L500.4050 #### [facility] [address] [place], [address] RBC Normal 4.6-6.2 [facility] Comment on above: Order Comment: 413-2 Result Comment: KIMBER ENT DISCHARGED Performed By: #### L 100.0100, L300.3900, L500.4050 #### [facility] [address] [place], [address] RDW CV Normal 11.6-14.6 [facility] Comment on above: Order Comment: 413-2 Result Comment: KIMBER ENT DISCHARGED Performed By: #### L 100.0100, L300.3900, L500.4050 #### [facility] [address] [place], [address] RDW SD Normal 35.1-43.9 [facility] Comment on above: Order Comment: 413-2 Result Comment: KIMBER ENT DISCHARGED Performed By: #### L 100.0100, L300.3900, L500.4050 #### [facility] [address] [place], [address] WBC Normal 4.4-11.0 [facility] Comment on above: Order Comment: 413-2 Result Comment: KIMBER ENT DISCHARGED Performed By: #### L 100.0100, L300.3900, L500.4050 #### [facility] [address] [place], [address] Comprehensive Metabolic Prof ilon 02-26-2025 ALB Normal 3.5-5.0 [facility] Comment on above: Order Comment: 413-2 Result Comment: KIMBER ENT DISCHARGED Performed By: #### L 500.4050, L100.0100, L300.3900 #### [facility] [address] [place], [address] ALK PHOS Normal 40-129 [facility] Comment on above: Order Comment: 413-2 Result Comment: KIMBER ENT DISCHARGED Performed By: #### L 500.4050, L100.0100, L300.3900 #### [facility] [address] [place], [address] ALT Normal <=46 [facility] Comment on above: Order Comment: 413-2 Result Comment: KIMBER ENT DISCHARGED Performed By: #### L 500.4050, L100.0100, L300.3900 #### [facility] [address] [place], [address] AST Normal <=37 [facility] Comment on above: Order Comment: 413-2 Result Comment: KIMBER ENT DISCHARGED Performed By: #### L 500.4050, L100.0100, L300.3900 #### [facility] [address] [place], [address] BUN Normal 4-19 [facility] Comment on above: Order Comment: 413-2 Result Comment: KIMBER ENT DISCHARGED Performed By: #### L 500.4050, L100.0100, L300.3900 #### [facility] [address] [place], [address] BUN/CRE Normal 10-20 [facility] Comment on above: Order Comment: 413-2 Result Comment: KIMBER ENT DISCHARGED Performed By: #### L 500.4050, L100.0100, L300.3900 #### [facility] [address] [place], [address] Calcium Normal 7.6-11.0 [facility] Comment on above: Order Comment: 413-2 Result Comment: KIMBER ENT DISCHARGED Performed By: #### L 500.4050, L100.0100, L300.3900 #### [facility] [address] [place], [address] CL Normal 98-108 [facility] Comment on above: Order Comment: 413-2 Result Comment: KIMBER ENT DISCHARGED Performed By: #### L 500.4050, L100.0100, L300.3900 #### [facility] [address] [place], [address] CO2 Normal 21.0-32.0 [facility] Comment on above: Order Comment: 413-2 Result Comment: KIMBER ENT DISCHARGED Performed By: #### L 500.4050, L100.0100, L300.3900 #### [facility] [address] [place], [address] CREAT,SERUM Normal 0.70-1.20 [facility] Comment on above: Order Comment: 413-2 Result Comment: KIMBER ENT DISCHARGED Performed By: #### L 500.4050, L100.0100, L300.3900 #### [facility] [address] [place], [address] eGFR Normal >60 [facility] Comment on above: Order Comment: 413-2 Result Comment: KIMBER ENT DISCHARGED Performed By: #### L 500.4050, L100.0100, L300.3900 #### [place] [facility] [address] [place], [address] GAP Normal 5-15 [facility] Comment on above: Order Comment: 413-2 Result Comment: KIMBER ENT DISCHARGED Performed By: #### L 500.4050, L100.0100, L300.3900 #### [facility] [address] [place], [address] GLU Normal 70-99 [facility] Comment on above: Order Comment: 413-2 Result Comment: KIMBER ENT DISCHARGED Performed By: #### L 500.4050, L100.0100, L300.3900 #### [facility] [address] [place], [address] Potassium Normal 3.3-5.1 [facility] Comment on above: Order Comment: 413-2 Result Comment: KIMBER ENT DISCHARGED Performed By: #### L 500.4050, L100.0100, L300.3900 #### [facility] [address] [place], [address] T BILI Normal 0.00-1.30 [facility] Comment on above: Order Comment: 413-2 Result Comment: KIMBER ENT DISCHARGED Performed By: #### L 500.4050, L100.0100, L300.3900 #### [facility] [address] [place], [address] T PROT Normal 5.9-8.4 [facility] Comment on above: Order Comment: 413-2 Result Comment: KIMBER ENT DISCHARGED Performed By: #### L 500.4050, L100.0100, L300.3900 #### [facility] [address] [place], [address] Comprehensive Metabolic Profil Normal 133-145 [facility] Comment on above: Order Comment: 413-2 Result Comment: KIMBER ENT DISCHARGED Performed By: #### L 500.4050, L100.0100, L300.3900 #### [facility] [address], [address] HIGH SENSITIVITY TROPONIN, S ERIAL, SECOND TESTon 02-26-2025 2H TROPONIN HS (SERIAL 2ND TROPONIN) 80 ng/L High <=35 [facility] Comment on above: Result Comment: [...] 3rd serial troponin Performed By: #### L [id number] ####Specialized Language Instructor: DOMENICA JARA ([id number])[facility] ([facility])[address] [place] [address] HIGH SENSITIVITY TROPONIN, S ERIAL, THIRD TESTon 02-26-2025 4H TROPONIN HS (SERIAL 3RD TROPONIN) 75 ng/L High <=35 [facility] Comment on above: Result Comment: 4h t [...] valuerequires further evaluation. Performed By: #### L [id number] ####Specialized Language Instructor: DOMENICA JARA ([id number])[facility] ([facility])[address] [place] [address] Laboratory - Coagulationon 0 02-26-2025 PT Coag (Bld) [Time] 13.5 s High 9.0 - 12.0 s [facility] No Panel Informationon 02-26 4h Troponin HS (Serial 3rd Troponin) 75 ng/L High NINF - 35 ng/L [facility] Interpretation and review of laboratory results Abnormal [facility] 2h Troponin HS (Serial 2nd Troponin) 80 ng/L High NINF - 35 ng/L [facility] Interpretation and review of laboratory results Abnormal [facility] Interpretation and review of laboratory results Abnormal [facility] Troponin HS Serial Baseline 84 ng/L High NINF - 35 ng/L [facility] Interpretation and review of laboratory results Abnormal [facility] PT Coag (Bld) [Time]on 02-26 INR Coag (PPP) [Relative time] 1.3 {INR} High 0.9 - 1.1 [facility] Progress Noteon 02-26-2025 Progress Note Normal [facility] Progress Note Normal [facility] Progress Note Normal [facility] Progress [facility] Normal [facility] Progress Note Normal [facility] Progress Note Normal [facility] Prothrombin Time w/INRon INR Normal [facility] Comment on above: Order Comment: 413-2 Result Comment: KIMBER ENT DISCHARGED Performed By: #### L 100.0100, L300.3900, L500.4050 #### [facility] [address] [place], [address] PROTIME Normal 11.7-14.9 [facility] Comment on above: Order Comment: 413-2 Result Comment: KIMBER ENT DISCHARGED Performed By: #### L 100.0100, L300.3900, L500.4050 #### [facility] [address] [place], [address] aPTT Coag (Bld) [Time]on aPTT Coag (PPP) [Time] 48.2 s High 20.0 - 30.5 s [facility] 30on 02-25-2025 30 Normal [facility] 30 Normal [facility] APTTon 02-25-2025 aPTT Coag (Bld) [Time] 48.2 s High 20.0-30.5 [facility] Comment on above: Result Comment: ARPAN Kaplan COMMENTS:NOTE: The therapeutic time for Heparin anticoagulation, based on Xa activity inhibition, is an APTT of 46-80 seconds. Performed By: #### L AB325, [id number] ####Specialized Language Instructor: DOMENICA JARA ([id number])[facility])[address] [place] [address] aPTT Coag (Bld) [Time] 49.5 s High 20.0-30.5 [facility] Comment on above: Result Comment: ARPAN Kaplan COMMENTS:NOTE: The therapeutic time for Heparin anticoagulation, based on Xa activity inhibition, is an APTT of 46-80 seconds. Performed By: #### L AB325, [id number] ####Specialized Language Instructor: DOMENICA JARA ([id number])[facility])[address] [place] [address] CBC (HEMOGRAM)on 02-25-2025 Erythrocyte distribution width (RBC) [Ratio] 19.9 % High 11.5-15.0 [facility] Comment on above: Performed By: #### L [id number] ####Specialized Language Instructor: DOMENICA JARA ([id number])[address] Hematocrit (Bld) [Volume fraction] 24.1 % Low 40.0-52.0 [facility] Comment on above: Performed By: #### L [id number] ####Specialized Language Instructor: DOMENICA JARA ([id number])[address] Hemoglobin (Bld) [Mass/Vol] 7.6 g/dL Low 13.0-18.0 [facility] Comment on above: Performed By: #### L [id number] ####Specialized Language Instructor: DOMENICA JARA ([id number])[facility])[address] [place] [address] MCH (RBC) [Entitic mass] 29.3 pg Normal 26.0-34.0 [facility] Comment on above: Performed By: #### L [id number] ####Specialized Language Instructor: DOMENICA JARA ([id number])[address] MCHC 31.5 % Normal 30.5-36.0 [facility] Comment on above: Performed By: #### L [id number] ####Specialized Language Instructor: DOMENICA JARA ([id number])[facility] ([facility])[address] [place] [address] MCV (RBC) [Entitic vol] 93.1 fL Normal 77.0-99.0 S [facility] Comment on above: Performed By: #### L [id number] ####Specialized Language Instructor: DOMENICA JARA ([id number])[facility] ([facility])[address] [place] [address] Platelet mean volume (Bld) [Entitic vol] 8.9 fL Low 9.0-12.7 [facility] Comment on above: Performed By: #### L [id number] ####Specialized Language Instructor: DOMENICA JARA ([id number])[facility] ([facility])[address] [place] [address] Platelets (Bld) [#/Vol] 280 10*3/uL Normal 140-440 [facility] Comment on above: Performed By: #### L [id number] ####Specialized Language Instructor: DOMENICA JARA ([id number])[facility] ([facility])[address] [place] [address] RBC (Bld) [#/Vol] 2.59 10*6/uL Low 4.40-5.90 [facility] Comment on above: Performed By: #### L [id number] ####Specialized Language Instructor: DOMENICA JARA ([id number])[facility])[address] [place] [address] WBC (Bld) [#/Vol] 7.5 10*3/uL Normal 3.6-10.7 [facility] Comment on above: Performed By: #### L [id number] ####Specialized Language Instructor: DOMENICA JARA ([id number])[facility])[address] [place] [address] CBC panel Auto (Bld)on 02-25 Erythrocyte distribution width (RBC) [Ratio] 19.9 % High 11.5 - 15.0 % [facility] Hematocrit (Bld) [Volume fraction] 24.1 % Low 40.0 - 52.0 % [facility] Hemoglobin (Bld) [Mass/Vol] 7.6 g/dL Low 13.0 - 18.0 g/dL [facility] Interpretation and review of laboratory results Abnormal [facility] MCH (RBC) [Entitic mass] 29.3 pg 26. 0 - 34.0 pg [facility] MCHC (RBC) [Mass/Vol] 31.5 % 30.5 - 36.0 % [facility] MCV (RBC) [Entitic vol] 93.1 fL 77.0 - 99.0 fL [facility] Platelet mean volume (Bld) [Entitic vol] 8.9 fL Low 9.0 - 12.7 fL [facility] Platelets (Bld) [#/Vol] 280 10*3/uL 140 - 440 10*3/uL [facility] RBC (Bld) [#/Vol] 2.59 10*6/uL Low 4.40 - 5.9 0 10*6/uL [facility] WBC (Bld) [#/Vol] 7.5 10*3/uL 3.6 - 10.7 10*3/uL [facility] HIGH SENSITIVITY TROPONIN, S ERIAL BASELINEon 02-25-2025 TROPONIN HS SERIAL BASELINE 84 ng/L High <=35 [facility] Comment on above: Result Comment: In i ndividuals presenting with symptoms > 2h, a baseline troponin <= 5 ng/L suggests acutecardiac injury is unlikely and further serial testing is generally not indicated. Performed By: #### L [id number] ####Specialized Language Instructor: DOMENICA JARA ([id number])[address] Laboratory - Coagulationon 0 02-25-2025 PT Coag (Bld) [Time] 13.7 s High 9.0 - 12.0 s [facility] No Panel Informationon 02-25 Interpretation and review of laboratory results Abnormal [facility] Nursing Noteon 02-25-2025 Nursing Note 2322- Notified Dr. Hathaway of patient complaint of SOB and worsening chest pain that he described as dull and tight. Vitals WDL. STAT EKG ordered, patient given Nitrostat, and troponin sent down. 2330- Notified [employer]INEER to assess the patient. Normal [facility] PROTHROMBIN TIMEon 02-25- 5 INR Coag (PPP) [Relative time] 1.3 {INR} High 0.9-1.1 [facility] Comment on above: Result Comment: Vaughn mmended [...] Myocardial Infarction Performed By: #### Tameka AB325, [id number] ####Specialized Language Instructor: DOMENICA JARA ([id number])[address] PT Coag (PPP) [Time] 13.5 s High 9.0-12.0 [facility] Comment on above: Performed By: #### Tameka AB325, [id number] ####Specialized Language Instructor: DOMENICA JARA ([id number])[address] INR Coag (PPP) [Relative time] 1.3 {INR} High 0.9-1.1 [facility] Comment on above: Result Comment: Vaughn mmended [...] Myocardial Infarction Performed By: #### L AB325, [id number] ####Specialized Language Instructor: DOMENICA JARA ([id number])[facility])[address] [place] [address] PT Coag (PPP) [Time] 13.7 s High 9.0-12.0 [facility] Comment on above: Performed By: #### L AB325, [id number] ####Specialized Language Instructor: DOMENICA JARA ([id number])[facility])[address] [place] [address] PT Coag (Bld) [Time]on 02-25 INR Coag (PPP) [Relative time] 1.3 {INR} High 0.9 - 1.1 [facility] Progress Noteon 02-25-2025 Progress Note [facility] Progress Note Normal [facility] Progress Note Normal [facility] Progress Note Normal [facility] aPTT Coag (Bld) [Time]on aPTT Coag (PPP) [Time] 49.5 s High 20.0 - 30.5 s [facility] 30on 02-24-2025 30 Normal [facility] 30 Normal [facility] APTTon 02-24-2025 aPTT Coag (Bld) [Time] 54.7 s High 20.0-30.5 [facility] Comment on above: Result Comment: ORDE R COMMENTS:NOTE: The therapeutic time for Heparin anticoagulation, based on Xa activity inhibition, is an APTT of 46-80 seconds. Performed By: #### L AB325 ####Specialized Language Instructor: DOMENICA JARA ([id number])[address] aPTT Coag (Bld) [Time] 61.0 s High 20.0-30.5 [facility] Comment on above: Result Comment: ARPAN Kaplan COMMENTS:NOTE: The therapeutic time for Heparin anticoagulation, based on Xa activity inhibition, is an APTT of 46-80 seconds. Performed By: #### L AB320, [id number] ####Specialized Language Instructor: DOMENICA JARA ([id number])[facility])[address] [place] [address] Bacteria identified Aer cx N om (Lower resp)Ordered By: Corey Pabon on 02-24-2025 Gram Stain Result Many Polymorphonuclear leukocytes per low power field Abnormal [facility] Gram Stain Result Few Epithelial cells per low power field Abnormal [facility] Gram Stain Result Positive Abnormal [facility] Gram Stain Result Negative Abnormal [facility] Gram Stain Result Few Yeast Abnormal [facility] Interpretation and review of laboratory results Abnormal [facility] HBV surface Ab IA Qnon 02-24 [facility] HBV surface Ag IA Qlon 02-24 Interpretation and review of laboratory results Normal [facility] HEPATITIS B SURFACE ANTIBODY on 02-24-2025 HEPATITIS B VIRUS SURFACE AB <8.0 Normal [facility] Comment on above: Result Comment: ORDE R COMMENTS:Interpretation:<8.0 Non-Reactive8.0-11.9 Equivocal>= 12.0 Ab DetectedNote: If an equivocal result is interpreted, an antibody status is unable to be determined. Collect new specimen if clinically indicated. Performed By: #### L AB472, [id number] ####Specialized Language Instructor: DOMENICA JARA ([id number])[facility] ([facility])[address] [place] [address] HEPATITIS B SURFACE ANTIGENo n 02-24-2025 HEPATITIS B VIRUS SURFACE AG Not detected Normal Not Detected [facility] Comment on above: Performed By: #### L AB472, [id number] ####Specialized Language Instructor: DOMENICA JARA ([id number])[facility] ([facility])[address] [place] [address] Laboratory - Coagulationon 0 02-24-2025 PT Coag (Bld) [Time] 13.5 s High 9.0 - 12.0 s [facility] Laboratory - Drug toxicology on 02-24-2025 Vancomycin trough [Mass/Vol] 23.4 ug/mL [facility] Laboratory - Microbiology an d Antimicrobial susceptibilityon 02-24-2025 HBV surface Ab IA Qn mIU/mL [facility] HBV surface Ag IA Ql Not detected Not Detected [facility] Laboratory - Microbiology an d Antimicrobial susceptibilityOrdered By: Corey Pabon on 02-24-2025 Bacteria identified Aer cx Nom (Lower resp) Few respiratory ila present. [facility] Bacteria identified Aer cx Nom (Lower resp) Moderate Klebsiella oxytoca Abnormal [facility] No Panel Informationon 02-24 [facility] Interpretation and review of laboratory results Abnormal [facility] Nursing Noteon 02-24-2025 Nursing Note Normal [facility] PROTHROMBIN TIMEon INR Coag (PPP) [Relative time] 1.3 {INR} High 0.9-1.1 [facility] Comment on above: Result Comment: Vaughn mmended [...] Myocardial Infarction Performed By: #### L AB320, [id number] ####Specialized Language Instructor: DOMENICA JARA ([id number])[facility] ([facility])[address] [place] [address] PT Coag (PPP) [Time] 13.5 s High 9.0-12.0 [facility] Comment on above: Performed By: #### L AB320, [id number] ####Specialized Language Instructor: DOMENICA JARA ([id number])[facility] ([facility])[address] [place] [address] PT Coag (Bld) [Time]on 02-24 INR Coag (PPP) [Relative time] 1.3 {INR} High 0.9 - 1.1 [facility] Progress Noteon 02-24-2025 Progress Note Vancomycin therapy has been discontinued by Hussain Quintana on 02/24. Thank you for the consult. Pharmacy signing off for vancomycin dosing. Marissa Iglesias, PharmD, Date: 02/24/25 Time: 4:08 PM Normal [facility] Progress Note Normal [facility] Progress Note Normal [facility] Progress Note Normal [facility] Progress [facility] VANCOMYCIN, AUC TIMED DOSING on 02-24-2025 VANCOMYCIN, AUC 23.4 ug/mL Normal [facility] Comment on above: Result Comment: ORDE R COMMENTS:Please draw random level at least >4 hours after the end of hemodialysis.Toxicity is seen at concentrations >80-100 ug/mLTherapeutic (Peak) range: 20-40Therapeutic (Trough) range: 5-10 Performed By: #### L AB39 ####Specialized Language Instructor: DOMENICA JARA ([id number])[facility] ([facility])[address] [place] [address] Vancomycin trough [Mass/Vol] on 02-24-2025 [facility] aPTT Coag (Bld) [Time]on aPTT Coag (PPP) [Time] 54.7 s High 20.0 - 30.5 s [facility] Interpretation and review of laboratory results Abnormal [facility] aPTT Coag (PPP) [Time] 61 s High 20.0 - 30.5 s [facility] [id number] 02-23-2025 [id number] Normal [facility] 36on 02-23-2025 36 Called LM to call back and schedule CT and hospital follow up with any ARMIN Normal [facility] 36 Hello, can we please schedule a 6-week CT scan for this patient and a follow-up appointment after this? Thank you [facility] APTTon 02-23-2025 aPTT Coag (Bld) [Time] 49.3 s High 20.0-30.5 [facility] Comment on above: Result Comment: ARPAN Kaplan COMMENTS:NOTE: The therapeutic time for Heparin anticoagulation, based on Xa activity inhibition, is an APTT of 46-80 seconds. Performed By: #### L AB325, [id number] ####Specialized Language Instructor: DOMENICA JARA ([id number])[facility] [place] [address] CBC (HEMOGRAM)on 02-23-2025 Erythrocyte distribution width (RBC) [Ratio] 19.7 % High 11.5-15.0 [facility] Comment on above: Performed By: #### L AB294 ####Specialized Language Instructor: DOMENICA JARA ([id number])[facility] ([address] Hematocrit (Bld) [Volume fraction] 27.9 % Low 40.0-52.0 [facility] Comment on above: Performed By: #### L AB294 ####Specialized Language Instructor: DOMENICA JARA ([id number])[facility])[address] [place] [address] Hemoglobin (Bld) [Mass/Vol] 8.6 g/dL Low 13.0-18.0 [facility] Comment on above: Performed By: #### L AB294 ####Specialized Language Instructor: DOMENICA JARA ([id number])[facility] ([facility])[address] [place] [address] MCH (RBC) [Entitic mass] 28.7 pg Normal 26.0-34.0 [facility] Comment on above: Performed By: #### L AB294 ####Specialized Language Instructor: DOMENICA JARA ([id number])[facility] ([facility])[address] [place] [address] MCHC 30.8 % Normal 30.5-36.0 [facility] Comment on above: Performed By: #### L AB294 ####Specialized Language Instructor: DOMENICA JARA ([id number])[facility] ([facility])[address] [place] [address] MCV (RBC) [Entitic vol] 93.0 fL Normal 77.0-99.0 S [facility] Comment on above: Performed By: #### L AB294 ####Specialized Language Instructor: DOMENICA JARA ([id number])[facility] ([facility])[address] [place] [address] Platelet mean volume (Bld) [Entitic vol] 8.9 fL Low 9.0-12.7 [facility] Comment on above: Performed By: #### L AB294 ####Specialized Language Instructor: DOMENICA JARA ([id number])[facility] ([facility])[address] [place] [address] Platelets (Bld) [#/Vol] 316 10*3/uL Normal 140-440 [facility] Comment on above: Performed By: #### L AB294 ####Specialized Language Instructor: DOMENICA JARA ([id number])[address] RBC (Bld) [#/Vol] 3.00 10*6/uL Low 4.40-5.90 [facility] Comment on above: Performed By: #### L AB294 ####Specialized Language Instructor: DOMENICA JARA ([id number])[facility])[address] [place] [address] WBC (Bld) [#/Vol] 8.6 10*3/uL Normal 3.6-10.7 [facility] Comment on above: Performed By: #### L AB294 ####Specialized Language Instructor: DOMENICA JARA ([id number])[address] CBC panel Auto (Bld)on 02-23 Erythrocyte distribution width (RBC) [Ratio] 19.7 % High 11.5 - 15.0 % [facility] Hematocrit (Bld) [Volume fraction] 27.9 % Low 40.0 - 52.0 % [facility] Hemoglobin (Bld) [Mass/Vol] 8.6 g/dL Low 13.0 - 18.0 g/dL [facility] Interpretation and review of laboratory results Abnormal [facility] MCH (RBC) [Entitic mass] 28.7 pg 26. 0 - 34.0 pg [facility] MCHC (RBC) [Mass/Vol] 30.8 % 30.5 - 36.0 % [facility] MCV (RBC) [Entitic vol] 93 fL 77.0 - 99.0 fL [facility] Platelet mean volume (Bld) [Entitic vol] 8.9 fL Low 9.0 - 12.7 fL [facility] Platelets (Bld) [#/Vol] 316 10*3/uL 140 - 440 10*3/uL [facility] RBC (Bld) [#/Vol] 3 10*6/uL Low 4.40 - 5.9 0 10*6/uL [facility] WBC (Bld) [#/Vol] 8.6 10*3/uL 3.6 - 10.7 10*3/uL [facility] METABOLIC PANE Victor M 02-23-2025 Albumin [Mass/Vol] 1.9 g/dL Low 3.5-5.0 [facility] Comment on above: Performed By: #### Tameka AB113, LAB17, [id number] ####Specialized Language Instructor: DOMENICA JARA ([id number])[facility] ([facility])[address] [place] [address] ALP [Catalytic activity/Vol] 136 U/L Normal 40-150 [facility] Comment on above: Performed By: #### Tameka GIMENEZ, LAB17, [id number] ####Specialized Language Instructor: DOMENICA JARA ([id number])[facility])[address] [place] [address] ALT [Catalytic activity/Vol] 10 U/L Normal <40 [facility] Comment on above: Performed By: #### Tameka ABAruna, LAB17, [id number] ####Specialized Language Instructor: DOMENICA JARA ([id number])[facility] ([facility])[address] [place] [address] Anion gap [Moles/Vol] 11 mmol/L Normal 3-13 [facility] Comment on above: Performed By: #### Tameka ABAruna, LAB17, [id number] ####Specialized Language Instructor: DOMENICA JARA ([id number])[facility] ([facility])[address] [place] [address] AST [Catalytic activity/Vol] 37 U/L High <34 [facility] Comment on above: Performed By: #### Tameka ABAruna, LAB17, [id number] ####Specialized Language Instructor: DOMENICA JARA ([id number])[facility] ([facility])[address] [place] [address] Bilirubin [Mass/Vol] 0.6 mg/dL Normal <1.2 [facility] Comment on above: Performed By: #### Tameka ABAruna, LAB17, [id number] ####Specialized Language Instructor: DOMENICA JARA ([id number])[facility] ([facility])[address] [place] [address] [place] Calcium [Mass/Vol] 9.2 mg/dL Normal 8.4-10.2 [facility] Comment on above: Performed By: #### Tameka ABAruna, LAB17, [id number] ####Specialized Language Instructor: DOMENICA JARA ([id number])[facility] [place] [address] [place] Chloride [Moles/Vol] 99 mmol/L Normal 98-107 [facility] Comment on above: Performed By: #### Tameka ABAruna, LAB17, [id number] ####Specialized Language Instructor: DOMENICA JARA ([id number])[facility] ([facility])[address] [place] [address] CO2 [Moles/Vol] 25 mmol/L Normal 22-29 [facility] Comment on above: Performed By: #### Tameka GIMENEZ, LAB17, [id number] ####Specialized Language Instructor: DOMENICA JARA ([id number])[facility] ([facility])[address] [place] [address] Creatinine [Mass/Vol] 2.78 mg/dL High 0.72-1.25 [facility] Comment on above: Performed By: #### Tameka GIMENEZ, LAB17, [id number] ####Specialized Language Instructor: DOMENICA JARA ([id number])[facility] ([facility])[address] [place] [address] [place] GLOMERULAR FILTRATION RATE ML/MIN/1.73 SQ M.PREDICTED 25.4 mL/min/1.73m*2 Low >60.0 [facility] Comment on above: Result Comment: Calc ulation based on the Chronic Kidney Disease Epidemiology Collaboration (CKD-EPI) equation refit without adjustment for race Performed By: #### Tameka GIMENEZ, LAB17, [id number] ####Specialized Language Instructor: DOMENICA JARA ([id number])[facility] ([facility])[address] [place] [address] [place] Glucose [Mass/Vol] 110 mg/dL High 74-100 [facility] Comment on above: Performed By: #### Tameka ABAruna, LAB17, [id number] ####Specialized Language Instructor: DOMENICA JARA ([id number])[facility])[address] [place] [address] Potassium [Moles/Vol] 4.1 mmol/L Normal 3.5-5.1 [facility] Comment on above: Result Comment: [facility] potassium values may be up to 0.5 mmol/L lower than serum values. Performed By: #### L AB113, LAB17, [id number] ####Specialized Language Instructor: DOMENICA JARA ([id number])[facility] ([facility])[address] [place] [address] Protein [Mass/Vol] 7.1 g/dL Normal 6.4-8.3 [facility] Comment on above: Performed By: #### Tameka ABAruna, LAB17, [id number] ####Specialized Language Instructor: DOMENICA JARA ([id number])[facility])[address] [place] [address] Sodium [Moles/Vol] 135 mmol/L Low 136-145 [facility] Comment on above: Performed By: #### Tameka ABAruna, LAB17, RWC874 ####Specialized Language Instructor: DOMENICA JARA ([id number])[facility])[address] [place] [address] Urea nitrogen [Mass/Vol] 21 mg/dL Normal 9-23 [facility] Comment on above: Performed By: #### L ABAruna, LAB17, QSB429 ####Specialized Language Instructor: DOMENICA JARA ([id number])[facility])[address] [place] [address] Comprehensive metabolic 1998 panelOrdered By: Jarred José on 02-23-2025 Albumin [Mass/Vol] 1.9 g/dL Low 3.5 - 5.0 g/dL [facility] ALP [Catalytic activity/Vol] 136 U/L 40 - 150 U/L [facility] ALT [Catalytic activity/Vol] 10 U/L NINF - 40 U/L [facility] Anion gap [Moles/Vol] 11 mmol/L 3 - 13 mmol/L [facility] AST [Catalytic activity/Vol] 37 U/L High NINF - 34 U/L [facility] Bilirubin [Mass/Vol] 0.6 mg/dL NINF - 1.2 mg/dL [facility] Calcium [Mass/Vol] 9.2 mg/dL 8.4 - 10. 2 mg/dL [facility] Chloride [Moles/Vol] 99 mmol/L 98 - 10 7 mmol/L [facility] CO2 [Moles/Vol] 25 mmol/L 22 - 29 mmol/L [facility] Creatinine [Mass/Vol] 2.78 mg/dL High 0.72 - 1.25 mg/dL [facility] GFR/1.73 sq M.predicted (S/P/Bld) [Vol rate/Area] 25.4 mL/min Low - PINF [facility] Glucose [Mass/Vol] 110 mg/dL High 74 - 100 mg/dL [facility] Interpretation and review of laboratory results Abnormal [facility] Potassium [Moles/Vol] 4.1 mmol/L 3.5 - 5.1 mmol/L [facility] Protein [Mass/Vol] 7.1 g/dL 6.4 - 8.3 g/dL [facility] Sodium [Moles/Vol] 135 mmol/L Low 136 - 145 mmol/L [facility] Urea nitrogen [Mass/Vol] 21 mg/dL 9 - 23 mg/d L [facility] Consulton 02-23-2025 Consult Normal [facility] Laboratory - Chemistry and C hemistry - challengeon 02-23-2025 Magnesium [Mass/Vol] 2 mg/dL 1.6 - 2 .6 mg/dL [facility] Laboratory - Coagulationon 0 02-23-2025 PT Coag (Bld) [Time] 14 s High 9.0 - 12.0 s [facility] MAGNESIUMon 02-23-2025 Magnesium [Mass/Vol] 2.0 mg/dL Normal 1.6-2.6 [facility] Comment on above: Result Comment: ARPAN Kaplan COMMENTS:Higher values can be expected in females during menses. Performed By: #### L AB113, LAB17, [id number] ####Specialized Language Instructor: DOMENICA JARA ([id number])[facility] ([address] Magnesium [Mass/Vol]on 02-23 [facility] No Panel Informationon 02-23 Interpretation and review of laboratory results Normal [facility] Interpretation and review of laboratory results Abnormal [facility] Nursing Noteon 02-23-2025 Nursing Note Normal [facility] Nursing Note Normal [facility] PHOSPHORUSon 02-23-2025 Phosphate [Mass/Vol] 2.6 mg/dL Normal 2.3-4.7 [facility] Comment on above: Performed By: #### L AB113, LAB17, [id number] ####Specialized Language Instructor: DOMENICA JARA ([id number])[facility])[address] [place] [address] PROTHROMBIN TIMEon INR Coag (PPP) [Relative time] 1.3 {INR} High 0.9-1.1 [facility] Comment on above: Result Comment: Vaughn mmended [...] Myocardial Infarction Performed By: #### Tameka AB325, [id number] ####Specialized Language Instructor: DOMENICA JARA ([id number])[facility] ([facility])[address] [place] [address] PT Coag (PPP) [Time] 14.0 s High 9.0-12.0 [facility] Comment on above: Performed By: #### Tameka AB325, [id number] ####Specialized Language Instructor: DOMENICA JARA ([phone])[facility])[address] [place] [address] PT Coag (Bld) [Time]on 02-23 INR Coag (PPP) [Relative time] 1.3 {INR} High 0.9 - 1.1 [facility] Phosphate [Moles/Vol]on 01-27 Phosphate [Mass/Vol] 2.6 mg/dL 2.3 - 4 .7 mg/dL [facility] Progress Noteon 02-23-2025 Progress Note Normal [facility] Progress Note Normal [facility] Progress Note Normal [facility] Progress Note Normal [facility] Progress Note Normal [facility] Progress Note Normal [facility] US Heart TransthoracicOrdere d By: Daryn Chowdary on 02-23-2025 Aortic valve Mean systole pressure gradient by US.doppler derived full Bernoulli 10 mmHg [facility] Work Phone: Aortic valve Orifice area by US 3.1 cm2 [facility] Work Phone: Aortic valve Peak systolic flow by US.doppler 1.4 m/s [facility] Work Phone: Ascending Aorta 3.5 cm [facility] Work Phone: Ascending Aorta Index 1.99 cm/m2 [facility] Work Phone: AV Area by Peak Velocity 1.3 cm2 [facility] Work Phone: AV Area by VTI 1.5 cm2 [facility] Work Phone: AV AT 66.6 ms [facility] Work Phone: AV Peak Gradient 20 mmHg [facility] Work Phone: AV Peak Velocity 2.3 m/s [facility] Work Phone: AV Velocity Ratio 0.39 [facility] Work Phone: AV VTI 39.1 cm [facility] Work Phone: MALU/BSA Peak Velocity 0.7 cm2/m2 [facility] Work Phone: MALU/BSA VTI 0.9 cm2/m2 [facility] Work Phone: E/E' Lateral 21.43 [facility] Work Phone: E/E' Ratio (Averaged) 25.71 [facility] Work Phone: E/E' Septal 30 [facility] Work Phone: Est. RA Pressure 15 mmHg [facility] Work Phone: Fractional Shortening 2D 31 % 28 - 44 % [facility] Work Phone: Interpretation and review of laboratory results Abnormal [facility] Work Phone: IVC Diameter 2.5 cm [facility] Work Phone: IVSd 1.6 cm Abnormal 0.6 - 1.0 cm [facility] Work Phone: LA Diameter 3.1 cm [facility] Work Phone: LA Size Index 1.76 cm/m2 [facility] Work Phone: LA Volume 2C 69 mL Abnormal 18 - 58 mL [facility] Work Phone: LA Volume 4C 84 mL Abnormal 18 - 58 mL [facility] Work Phone: LA Volume A/L 85 mL [facility] Work Phone: LA Volume BP 78 mL Abnormal 18 - 58 mL [facility] Work Phone: LA Volume Index 2C 39 mL/m2 Abnormal 16 - 34 mL/m2 [facility] Work Phone: LA Volume Index 4C 48 mL/m2 Abnormal 16 - 34 mL/m2 [facility] Work Phone: LA Volume Index A/L 48 mL/m2 16 - 34 mL/m2 [facility] Work Phone: LA Volume Index BP 44 ml/m2 Abnormal 16 - 34 ml/m2 [facility] Work Phone: LV E' Lateral Velocity 7 cm/s [facility] Work Phone: LV E' Septal Velocity 5 cm/s [facility] Work Phone: LV Mass 2D 201 g 88 - 224 g [facility] Work Phone: LV Mass 2D Index 114.2 g/m2 49 - 115 g/m2 [facility] Work Phone: LV RWT Ratio 0.78 [facility] Work Phone: LVIDd 3.6 cm Abnormal 4.2 - 5.9 cm [facility] Work Phone: LVIDd Index 2.05 cm/m2 [facility] Work Phone: LVIDs 2.5 cm [facility] Work Phone: LVIDs Index 1.42 cm/m2 [facility] Work Phone: LVOT Cardiac Output 5.3 liter/minute [facility] Work Phone: LVOT Diameter 2 cm [facility] Work Phone: LVOT Mean Gradient 2 mmHg [facility] Work Phone: LVOT Peak Gradient 3 mmHg [facility] Work Phone: LVOT Peak Velocity 0.9 m/s [facility] Work Phone: LVOT Stroke Volume Index 33.4 mL/m2 [facility] Work Phone: LVOT SV 58.7 ml [facility] Work Phone: LVOT VTI 18.7 cm [facility] Work Phone: LVOT:AV VTI Index 0.48 [facility] Work Phone: LVPWd 1.4 cm Abnormal 0.6 - 1.0 cm [facility] Work Phone: MV A Velocity 0.97 m/s [facility] Work Phone: MV Area by PHT 3 cm2 [facility] Work Phone: MV Area by VTI 1.3 cm2 [facility] Work Phone: MV E Velocity 1.5 m/s [facility] Work Phone: MV E Wave [...] Work Phone: TR Peak Gradient 42 mmHg [facility] Work Phone: [facility] Work Phone: US Heart Transthoracicon [facility] aPTT Coag (Bld) [Time]on aPTT Coag (PPP) [Time] 49.3 s High 20.0 - 30.5 s [facility] 30on 02-22-2025 30 Normal [facility] [id number] 02-22-2025 [id number] Normal [facility] [id number] Updated notes sent to [facility] via [employer] per [facility] request. Await review and response regarding ability to accept. TCC notified. Normal [facility] APTTon 02-22-2025 aPTT Coag (Bld) [Time] 52.1 s High 20.0-30.5 [facility] Comment on above: Result Comment: ARPAN Kaplan COMMENTS:NOTE: The therapeutic time for Heparin anticoagulation, based on Xa activity inhibition, is an APTT of 46-80 seconds. Performed By: #### L AB325 ####Specialized Language Instructor: DOMENICA JARA ([phone])[address] aPTT Coag (Bld) [Time] 54.9 s High 20.0-30.5 [facility] Comment on above: Result Comment: ARPAN Kaplan COMMENTS:NOTE: The therapeutic time for Heparin anticoagulation, based on Xa activity inhibition, is an APTT of 46-80 seconds. Performed By: #### L AB325, [id number] ####Specialized Language Instructor: DOMENICA JARA ([id number])[address] BLOOD CULTUREon 02-22-2025 Bacteria identified Cx Nom (Bld) Normal [facility] Comment on above: Performed By: #### L AB462 ####Specialized Language Instructor: DOMENICA JARA ([id number])[facility] Bacteria identified Cx Nom (Bld) Normal [facility] Comment on above: Performed By: #### L AB462 ####Specialized Language Instructor: DOMENICA JARA ([id number])[facility])[address] [place] [address] CBC (HEMOGRAM)on 02-22-2025 Erythrocyte distribution width (RBC) [Ratio] 19.4 % High 11.5-15.0 [facility] Comment on above: Performed By: #### L AB294 ####Specialized Language Instructor: DOMENICA JARA ([id number])[address] Hematocrit (Bld) [Volume fraction] 24.5 % Low 40.0-52.0 [facility] Comment on above: Performed By: #### L [id number] ####Specialized Language Instructor: DOMENICA JARA ([id number])[facility])[address] [place] [address] Hemoglobin (Bld) [Mass/Vol] 7.8 g/dL Low 13.0-18.0 [facility] Comment on above: Performed By: #### L [id number] ####Specialized Language Instructor: DOMENICA JARA ([phone])[facility])[address] [place] [address] MCH (RBC) [Entitic mass] 29.0 pg Normal 26.0-34.0 [facility] Comment on above: Performed By: #### L [id number] ####Specialized Language Instructor: DOMENICA JARA ([id number])[address] MCHC 31.8 % Normal 30.5-36.0 [facility] Comment on above: Performed By: #### L [id number] ####Specialized Language Instructor: DOMENICA JARA ([id number])[address] MCV (RBC) [Entitic vol] 91.1 fL Normal 77.0-99.0 [facility] Comment on above: Performed By: #### L [id number] ####Specialized Language Instructor: DOMENICA JARA ([phone])[facility])[address] [place] [address] Platelet mean volume (Bld) [Entitic vol] 8.9 fL Low 9.0-12.7 [facility] Comment on above: Performed By: #### L [id number] ####Specialized Language Instructor: DOMENICA JARA ([id number])[facility] ([facility])[address] [place] [address] Platelets (Bld) [#/Vol] 282 10*3/uL Normal 140-440 [facility] Comment on above: Performed By: #### L [id number] ####Specialized Language Instructor: DOMENICA JARA ([id number])[facility])[address] [place] [address] RBC (Bld) [#/Vol] 2.69 10*6/uL Low 4.40-5.90 [facility] Comment on above: Performed By: #### L [id number] ####Specialized Language Instructor: DOMENICA JARA ([id number])[facility])[address] [place] [address] WBC (Bld) [#/Vol] 9.0 10*3/uL Normal 3.6-10.7 [facility] Comment on above: Performed By: #### L [id number] ####Specialized Language Instructor: DOMENICA JARA ([id number])[facility])[address] [place] [address] CBC panel Auto (Bld)on 02-22 Erythrocyte distribution width (RBC) [Ratio] 19.4 % High 11.5 - 15.0 % [facility] Hematocrit (Bld) [Volume fraction] 24.5 % Low 40.0 - 52.0 % [facility] Hemoglobin (Bld) [Mass/Vol] 7.8 g/dL Low 13.0 - 18.0 g/dL [facility] Interpretation and review of laboratory results Abnormal [facility] MCH (RBC) [Entitic mass] 29 pg 26. 0 - 34.0 pg [facility] MCHC (RBC) [Mass/Vol] 31.8 % 30.5 - 36.0 % [facility] MCV (RBC) [Entitic vol] 91.1 fL 77.0 - 99.0 fL [facility] Platelet mean volume (Bld) [Entitic vol] 8.9 fL Low 9.0 - 12.7 fL [facility] Platelets (Bld) [#/Vol] 282 10*3/uL 140 - 440 10*3/uL [facility] RBC (Bld) [#/Vol] 2.69 10*6/uL Low 4.40 - 5.9 0 10*6/uL [facility] WBC (Bld) [#/Vol] 9 10*3/uL 3.6 - 10.7 10*3/uL [facility] COMPREHENSIVE METABOLIC PANE Victor M 02-22-2025 Albumin [Mass/Vol] 1.8 g/dL Low 3.5-5.0 [facility] Comment on above: Performed By: #### Tameka AB103, LAB17, [id number] ####Specialized Language Instructor: DOMENICA JARA ([id number])[facility] ([facility])[address] [place] [address] ALP [Catalytic activity/Vol] 120 U/L Normal 40-150 [facility] Comment on above: Performed By: #### Tameka AB103, LAB17, [id number] ####Specialized Language Instructor: DOMENICA JARA ([id number])[facility] ([facility])[address] [place] [address] ALT [Catalytic activity/Vol] 9 U/L Normal <40 [facility] Comment on above: Performed By: #### Tameka AB103, LAB17, [id number] ####Specialized Language Instructor: DOMENICA JARA ([id number])[facility])[address] [place] [address] Anion gap [Moles/Vol] 13 mmol/L Normal 3-13 [facility] Comment on above: Performed By: #### Tameka AB103, LAB17, [id number] ####Specialized Language Instructor: DOMENICA JARA ([id number])[facility] ([facility])[address] [place] [address] [place] AST [Catalytic activity/Vol] 35 U/L High <34 [facility] Comment on above: Performed By: #### Tameka AB103, LAB17, [id number] ####Specialized Language Instructor: DOMENICA JARA ([id number])[facility] ([facility])[address] [place] [address] Bilirubin [Mass/Vol] 0.6 mg/dL Normal <1.2 [facility] Comment on above: Performed By: #### Tameka AB103, LAB17, [id number] ####Specialized Language Instructor: DOMENICA JARA ([id number])[facility])[address] [place] [address] Calcium [Mass/Vol] 9.2 mg/dL Normal 8.4-10.2 [facility] Comment on above: Performed By: #### Tameka KWONG, LAB17, [id number] ####Specialized Language Instructor: DOMENICA JARA ([id number])[facility] [place] [address] [place] Chloride [Moles/Vol] 94 mmol/L Low 98-107 [facility] Comment on above: Performed By: #### Tameka KWONG, LAB17, [id number] ####Specialized Language Instructor: DOMENICA JARA ([id number])[facility] [place] [address] [place] CO2 [Moles/Vol] 25 mmol/L Normal 22-29 [facility] Comment on above: Performed By: #### Tameka AB103, LAB17, [id number] ####Specialized Language Instructor: DOMENICA JARA ([id number])[facility] [place] [address] [place] Creatinine [Mass/Vol] 3.99 mg/dL High 0.72-1.25 [facility] Comment on above: Performed By: #### Tameka AB103, LAB17, [id number] ####Specialized Language Instructor: DOMENICA JARA ([id number])[facility])[address] [place] [address] [place] GLOMERULAR FILTRATION RATE ML/MIN/1.73 SQ M.PREDICTED 16.5 mL/min/1.73m*2 Low >60.0 [facility] Comment on above: Result Comment: Calc ulation based on the Chronic Kidney Disease Epidemiology Collaboration (CKD-EPI) equation refit without adjustment for race Performed By: #### Tameka ABRadha, LAB17, [id number] ####Specialized Language Instructor: DOMENICA JARA ([id number])[facility])[address] [place] [address] Glucose [Mass/Vol] 121 mg/dL High 74-100 [facility] Comment on above: Performed By: #### Tameka KWONG, LAB17, [id number] ####Specialized Language Instructor: DOMENICA JARA ([id number])[facility])[address] [place] [address] Potassium [Moles/Vol] 3.4 mmol/L Low 3.5-5.1 [facility] Comment on above: Result Comment: [facility] potassium values may be up to 0.5 mmol/L lower than serum values. Performed By: #### Tameka KWONG, LAB17, [id number] ####Specialized Language Instructor: DOMENICA JARA ([id number])[facility])[address] [place] [address] Protein [Mass/Vol] 6.7 g/dL Normal 6.4-8.3 [facility] Comment on above: Performed By: #### Tameka KWONG, LAB17, [id number] ####Specialized Language Instructor: DOMENICA JARA ([id number])[facility])[address] [place] [address] [place] Sodium [Moles/Vol] 132 mmol/L Low 136-145 [facility] Comment on above: Performed By: #### Tameka KWONG, LAB17, [id number] ####Specialized Language Instructor: DOMENICA JARA ([id number])[facility])[address] [place] [address] [place] Urea nitrogen [Mass/Vol] 36 mg/dL High 9-23 [facility] Comment on above: Performed By: #### Tameka AB103, LAB17, [id number] ####Specialized Language Instructor: DOMENICA JARA ([id number])[facility] ([facility] Comprehensive metabolic 1998 panelOrdered By: Michelle Olmstead on 02-22-2025 Albumin [Mass/Vol] 1.8 g/dL Low 3.5 - 5.0 g/dL [facility] ALP [Catalytic activity/Vol] 120 U/L 40 - 150 U/L [facility] ALT [Catalytic activity/Vol] 9 U/L NINF - 40 U/L [facility] Anion gap [Moles/Vol] 13 mmol/L 3 - 13 mmol/L [facility] AST [Catalytic activity/Vol] 35 U/L High NINF - 34 U/L [facility] Bilirubin [Mass/Vol] 0.6 mg/dL NINF - 1.2 mg/dL [facility] Calcium [Mass/Vol] 9.2 mg/dL 8.4 - 10. 2 mg/dL [facility] Chloride [Moles/Vol] 94 mmol/L Low 98 - 10 7 mmol/L [facility] CO2 [Moles/Vol] 25 mmol/L 22 - 29 mmol/L [facility] Creatinine [Mass/Vol] 3.99 mg/dL High 0.72 - 1.25 mg/dL [facility] GFR/1.73 sq M.predicted (S/P/Bld) [Vol rate/Area] 16.5 mL/min Low - PINF [facility] Glucose [Mass/Vol] 121 mg/dL High 74 - 100 mg/dL [facility] Interpretation and review of laboratory results Abnormal [facility] Potassium [Moles/Vol] 3.4 mmol/L Low 3.5 - 5.1 mmol/L [facility] Protein [Mass/Vol] 6.7 g/dL 6.4 - 8.3 g/dL [facility] Sodium [Moles/Vol] 132 mmol/L Low 136 - 145 mmol/L [facility] Urea nitrogen [Mass/Vol] 36 mg/dL High 9 - 23 mg/d L [facility] Consulton 02-22-2025 Consult Normal [facility] Consult Normal [facility] Consult Normal [facility] LEGIONELLA AND STREPTOCOCCUS URINE ANTIGENon 05-29-2025 LEGIONELLA AND STREPTOCOCCUS URINE ANTIGEN Normal [facility] Comment on above: Performed By: #### L [id number] ####Specialized Language Instructor: DOMENICA JARA ([id number])[facility] ([facility])[address] [place] [address] Laboratory - Chemistry and C hemistry - challengeon 02-22-2025 Magnesium [Mass/Vol] 2.2 mg/dL 1.6 - 2 .6 mg/dL [facility] Laboratory - Coagulationon 0 02-22-2025 PT Coag (Bld) [Time] 14.9 s High 9.0 - 12.0 s [facility] Laboratory - Drug toxicology on 02-22-2025 Vancomycin [Mass/Vol] 12.6 ug/mL [facility] MAGNESIUMon 02-22-2025 Magnesium [Mass/Vol] 2.2 mg/dL Normal 1.6-2.6 [facility] Comment on above: Result Comment: ARPAN Kaplan COMMENTS:Higher values can be expected in females during menses. Performed By: #### L AB103, LAB17, [id number] ####Specialized Language Instructor: DOMENICA JARA ([id number])[facility] ([facility])[address] [place] [address] [place] MRSA BY PCRon 02-22-2025 MRSA BY PCR Normal [facility] Comment on above: Performed By: #### L [id number] ####Specialized Language Instructor: DOMENICA JARA ([id number])[facility] ([facility])[address] [place] [address] MRSA DNA EMMANUEL+probe Ql (Nose) on 02-22-2025 Interpretation and review of laboratory results Normal [facility] mecA gene Not detected Not Detected [facility] Staphylococcus aureus Not detected Not Detected [facility] Magnesium [Mass/Vol]on 02-22 [facility] No Panel Informationon 02-22 [facility] Interpretation and review of laboratory results Normal [facility] Interpretation and review of laboratory results Abnormal [facility] No Panel InformationOrdered By: Lorin Bryant on 02-22-2025 Interpretation and review of laboratory results Normal [facility] Legionella pneumophila Ag Not detected Not Detected [facility] Streptococcus pneumoniae Ag Not detected Not Detected [facility] Nursing Noteon 02-22-2025 Nursing Note Pt keeps ordering door dash items. Have explained to pt on multiple occasions that staff cannot leave floor to get items and that it is after hours and door dashers most likely will not be allowed up onto the floors. Normal [facility] Nursing Note Normal [facility] Nursing Note Normal [facility] PHOSPHORUSon 02-22-2025 Phosphate [Mass/Vol] 3.2 mg/dL Normal 2.3-4.7 [facility] Comment on above: Performed By: #### L AB103, LAB17, [id number] ####Specialized Language Instructor: DOMENICA JARA ([id number])[address] PNEUMONIA PCR PANELon 2024 PNEUMONIA PCR PANEL Normal [facility] Comment on above: Performed By: #### L [id number] ####Specialized Language Instructor: DOMENICA JARA ([id number])[address] PROTHROMBIN TIMEon INR Coag (PPP) [Relative time] 1.4 {INR} High 0.9-1.1 [facility] Comment on above: Result Comment: Vaughn mmended [...] Myocardial Infarction Performed By: #### L AB325, [id number] ####Specialized Language Instructor: DOMENICA JARA ([id number])[facility])[address] [place] [address] PT Coag (PPP) [Time] 14.9 s High 9.0-12.0 [facility] Comment on above: Performed By: #### L AB325, [id number] ####Specialized Language Instructor: DOMENICA JARA ([id number])[facility] ([facility])[address] [place] [address] PT Coag (Bld) [Time]on 02-22 INR Coag (PPP) [Relative time] 1.4 {INR} High 0.9 - 1.1 [facility] Phosphate [Moles/Vol]on 01-26 Phosphate [Mass/Vol] 3.2 mg/dL 2.3 - 4 .7 mg/dL [facility] Progress Noteon 02-22-2025 Progress Note Normal [facility] Progress Note Normal [facility] Progress Note [facility] Progress Note OCCUPATIONAL THERAPY [facility] Name/MRN: Jair Snyder ([id number]) Date: 02/22/2025 PT refusing to participate in therapy this AM, will continue to follow and re approach for OT eval. Ro Farnsworth, OT Normal [facility] Progress Note [facility] Progress Note Normal [facility] RESPIRATORY CULTURE AND STAI Non 02-22-2025 RESPIRATORY CULTURE AND STAIN Normal [facility] Comment on above: Performed By: #### L AB900 ####Specialized Language Instructor: DOMENICA JARA ([id number])[facility])[address] [place] [address] Respiratory pathogens DNA an d RNA panel EMMANUEL+non-probe (Lower resp)Ordered By: Odalys Bustamante on 02-22-2025 Acinetobacter baumannii complex Not detected Not Detected [facility] Adenovirus Not detected Not Detected [facility] Chlamydia pneumoniae Not detected Not Detected [facility] Enterobacter cloacae complex Not detected Not Detected [facility] Escherichia coli Not detected Not Detected [facility] FLUAV RNA EMMANUEL+non-probe Ql (Lower resp) Not detected Not Detected [facility] FLUBV RNA EMMANUEL+non-probe Ql (Lower resp) Not detected Not Detected [facility] Haemophilus influenzae Not detected Not Detecte d [facility] Human Metapneumovirus Not detected Not Detected [facility] Human Rhinovirus/Enterovirus Not detected Not Detected [facility] Interpretation and review of laboratory results Abnormal [facility] Klebsiella (Enterobacter) aerogenes Not detected Not Detected [facility] Klebsiella oxytoca Detected Abnormal Not Detected [facility] Klebsiella pneumoniae Not detected Not Detected [facility] Legionella pneumophila Not detected Not Detecte d [facility] mecA Not detected Not Detected [facility] Moraxella catarrhalis Not detected Not Detected [facility] Mycoplasma pneumoniae Not detected Not Detected [facility] Parainfluenza virus Not detected Not Detected S [facility] Proteus spp Not detected Not Detected [facility] Pseudomonas aeruginosa Not detected Not Detecte d [facility] RSV RNA EMMANUEL+probe Ql (Resp) Not detected Not Detected [facility] S. agalactiae Org specific cx Ql (Vag fld) Not detected Not Detected [facility] SARS-CoV-2 (COVID-19) RNA EMMANUEL+non-probe Ql (Nph) Not detected Not Detected [facility] Serratia marcescens Not detected Not Detected [facility] Staphylococcus aureus Detected Abnormal Not Detected [facility] Streptococcus pneumoniae Not detected Not Detec yo [facility] Streptococcus pyogenes Not detected Not Detecte d [facility] VANCOMYCIN, RANDOMon 025 VANCOMYCIN 12.6 ug/mL Normal [facility] Comment on above: Result Comment: ARPAN R COMMENTS:This level is ordered to be drawn 4 hours post- HD. ThanksToxicity is seen at concentrations >80-100 ug/mLTherapeutic (Peak) range: 20-40Therapeutic (Trough) range: 5-10 Performed By: #### L AB40 ####Specialized Language Instructor: DOMENICA JARA ([id number])[facility] ([facility] aPTT Coag (Bld) [Time]on aPTT Coag (PPP) [Time] 52.1 s High 20.0 - 30.5 s [facility] Interpretation and review of laboratory results Abnormal [facility] aPTT Coag (PPP) [Time] 54.9 s High 20.0 - 30.5 s [facility] 30on 02-21-2025 30 Normal [facility] [id number] 02-21-2025 [id number] Has dialysis at [facility].Suzy campbell signed by Kaity Sepulveda RN on 02/21/2025 at 12:54 PM Normal [facility] [id number] Normal [facility] 36on 02-21-2025 36 Normal [facility] APTTon 02-21-2025 aPTT Coag (Bld) [Time] 50.3 s High 20.0-30.5 [facility] Comment on above: Result Comment: ARPAN Kaplan COMMENTS:NOTE: The therapeutic time for Heparin anticoagulation, based on Xa activity inhibition, is an APTT of 46-80 seconds. Performed By: #### L AB325 ####Specialized Language Instructor: DOMENICA JARA ([id number])[facility])[address] [place] [address] aPTT Coag (Bld) [Time] 32.6 s High 20.0-30.5 [facility] Comment on above: Result Comment: ARPAN Kaplan COMMENTS:NOTE: The therapeutic time for Heparin anticoagulation, based on Xa activity inhibition, is an APTT of 46-80 seconds. Performed By: #### L AB325 ####Specialized Language Instructor: DOMENICA JARA ([id number])[facility] ([facility])[address] [place] [address] BLOOD TYPE AND SCREEN GELon 02-21-2025 ABO GROUPING O [facility] Comment on above: Performed By: #### L AB276 ####Specialized Language Instructor: DOMENICA JARA ([id number])[facility]OD [facility] ([facility])[address] [place] [address] RH TYPE IN BLOOD Negative Normal [facility] Comment on above: Performed By: #### L AB276 ####Specialized Language Instructor: DOMENICA JARA ([id number])[facility] ([facility])[address] [place] [address] Blood type and Crossmatch pa freida (Bld)on 02-21-2025 ABO group Nom (Bld) O [facility] Blood group antibody screen GEL Ql Negative [facility] D Ag Ql (RBC) [facility] C-REACTIVE PROTEINon 05-28-2 025 CRP [Mass/Vol] 60.3 mg/L High <5.0 [facility] Comment on above: Performed By: #### L [id number], [id number], HUU869, LAB17, ABR909 ####Specialized Language Instructor: DOMENICA JARA ([id number])[facility])[address] [place] [address] CBC (HEMOGRAM)on 02-21-2025 Erythrocyte distribution width (RBC) [Ratio] 19.0 % High 11.5-15.0 [facility] Comment on above: Performed By: #### L AB294 ####Specialized Language Instructor: DOMENICA JARA ([id number])[facility])[address] [place] [address] Hematocrit (Bld) [Volume fraction] 25.7 % Low 40.0-52.0 [facility] Comment on above: Performed By: #### L AB294 ####Specialized Language Instructor: DOMENICA JARA ([id number])[facility])[address] [place] [address] Hemoglobin (Bld) [Mass/Vol] 8.3 g/dL Low 13.0-18.0 [facility] Comment on above: Performed By: #### L AB294 ####Specialized Language Instructor: DOMENICA JARA ([phone])[facility])[address] [place] [address] MCH (RBC) [Entitic mass] 29.0 pg Normal 26.0-34.0 [facility] Comment on above: Performed By: #### L AB294 ####Specialized Language Instructor: DOMENICA JARA ([id number])[facility])[address] [place] [address] MCHC 32.3 % Normal 30.5-36.0 [facility] Comment on above: Performed By: #### L AB294 ####Specialized Language Instructor: DOMENICA JARA ([id number])[facility])[address] [place] [address] MCV (RBC) [Entitic vol] 89.9 fL Normal 77.0-99.0 [facility] Comment on above: Performed By: #### L AB294 ####Specialized Language Instructor: DOMENICA JARA ([id number])[facility])[address] [place] [address] Platelet mean volume (Bld) [Entitic vol] 8.9 fL Low 9.0-12.7 [facility] Comment on above: Performed By: #### L AB294 ####Specialized Language Instructor: DOMENICA JARA ([id number])[facility] ([facility])[address] [place] [address] Platelets (Bld) [#/Vol] 316 10*3/uL Normal 140-440 [facility] Comment on above: Performed By: #### L AB294 ####Specialized Language Instructor: DOMENICA JARA ([id number])[facility])[address] [place] [address] RBC (Bld) [#/Vol] 2.86 10*6/uL Low 4.40-5.90 [facility] Comment on above: Performed By: #### L AB294 ####Specialized Language Instructor: DOMENICA JARA ([id number])[facility])[address] [place] [address] WBC (Bld) [#/Vol] 7.0 10*3/uL Normal 3.6-10.7 [facility] Comment on above: Performed By: #### L AB294 ####Specialized Language Instructor: DOMENICA JARA ([id number])[facility] ([facility])[address] [place] [address] CBC panel Auto (Bld)on 02-21 Erythrocyte distribution width (RBC) [Ratio] 19 % High 11.5 - 15.0 % [facility] Hematocrit (Bld) [Volume fraction] 25.7 % Low 40.0 - 52.0 % [facility] Hemoglobin (Bld) [Mass/Vol] 8.3 g/dL Low 13.0 - 18.0 g/dL [facility] Interpretation and review of laboratory results Abnormal [facility] MCH (RBC) [Entitic mass] 29 pg 26. 0 - 34.0 pg [facility] MCHC (RBC) [Mass/Vol] 32.3 % 30.5 - 36.0 % [facility] MCV (RBC) [Entitic vol] 89.9 fL 77.0 - 99.0 fL [facility] Platelet mean volume (Bld) [Entitic vol] 8.9 fL Low 9.0 - 12.7 fL [facility] Platelets (Bld) [#/Vol] 316 10*3/uL 140 - 440 10*3/uL [facility] RBC (Bld) [#/Vol] 2.86 10*6/uL Low 4.40 - 5.9 0 10*6/uL [facility] WBC (Bld) [#/Vol] 7 10*3/uL 3.6 - 10.7 10*3/uL [facility] COMPREHENSIVE METABOLIC PANE Victor M 02-21-2025 Albumin [Mass/Vol] 2.0 g/dL Low 3.5-5.0 [facility] Comment on above: Performed By: #### L [id number], YIZ203, IQQ779, LAB17, TRB274 ####Specialized Language Instructor: DOMENICA JARA ([id number])[facility] ([facility])[address] [place] [address] ALP [Catalytic activity/Vol] 120 U/L Normal 40-150 [facility] Comment on above: Performed By: #### L [id number], JDE556, RZE737, LAB17, UFV322 ####Specialized Language Instructor: DOMENICA JARA ([phone])[facility] ([facility])[address] [place] [address] ALT [Catalytic activity/Vol] 8 U/L Normal <40 [facility] Comment on above: Performed By: #### L [id number], RLT576, BAR325, LAB17, UGR343 ####Specialized Language Instructor: DOMENICA JARA ([id number])[facility] ([facility])[address] [place] [address] Anion gap [Moles/Vol] 12 mmol/L Normal 3-13 [facility] Comment on above: Performed By: #### L [id number], WPF227, SML404, LAB17, VLE999 ####Specialized Language Instructor: DOMENICA JARA ([id number])[facility] ([facility])[address] [place] [address] AST [Catalytic activity/Vol] 39 U/L High <34 [facility] Comment on above: Performed By: #### L [id number], QMP027, FUA413, LAB17, GMS148 ####Specialized Language Instructor: DOMENICA JARA ([id number])[facility] ([facility])[address] [place] [address] Bilirubin [Mass/Vol] 0.8 mg/dL Normal <1.2 [facility] Comment on above: Performed By: #### L [id number], RAN214, YVA057, LAB17, LSW418 ####Specialized Language Instructor: DOMENICA JARA ([id number])[facility] ([facility])[address] [place] [address] Calcium [Mass/Vol] 9.3 mg/dL Normal 8.4-10.2 [facility] Comment on above: Performed By: #### L [id number], LFJ530, NMU557, LAB17, JWF827 ####Specialized Language Instructor: DOMENICA JARA ([id number])[facility] ([facility])[address] [place] [address] Chloride [Moles/Vol] 91 mmol/L Low 98-107 [facility] Comment on above: Performed By: #### L [id number], NTH411, UJF529, LAB17, BVF528 ####Specialized Language Instructor: DOMENICA JARA ([id number])[facility] ([facility])[address] [place] [address] [place] CO2 [Moles/Vol] 28 mmol/L Normal 22-29 [facility] Comment on above: Performed By: #### L [id number], AWY103, XRG838, LAB17, HVF931 ####Specialized Language Instructor: DOMENICA JARA ([id number])[facility] ([facility])[address] [place] [address] [place] Creatinine [Mass/Vol] 2.89 mg/dL High 0.72-1.25 [facility] Comment on above: Performed By: #### L [id number], PNM213, XXY686, LAB17, ZKF675 ####Specialized Language Instructor: DOMENICA JARA ([phone])[facility])[address] [place] [address] GLOMERULAR FILTRATION RATE ML/MIN/1.73 SQ M.PREDICTED 24.3 mL/min/1.73m*2 Low >60.0 [facility] Comment on above: Result Comment: Calc ulation based on the Chronic Kidney Disease Epidemiology Collaboration (CKD-EPI) equation refit without adjustment for race Performed By: #### L [id number], MEH669, PIC539, LAB17, LUO534 ####Specialized Language Instructor: DOMENICA JARA ([id number])[facility])[address] [place] [address] Glucose [Mass/Vol] 74 mg/dL Normal 74-100 [facility] Comment on above: Performed By: #### Tameka [id number], KKH605, RYO468, LAB17, PVZ467 ####Specialized Language Instructor: DOMENICA JARA ([id number])[facility])[address] [place] [address] Potassium [Moles/Vol] 3.1 mmol/L Low 3.5-5.1 [facility] Comment on above: Result Comment: [facility] potassium values may be up to 0.5 mmol/L lower than serum values. Performed By: #### L [id number], UHI655, PPT695, LAB17, HTP481 ####Specialized Language Instructor: DOMENICA JARA ([id number])[facility])[address] [place] [address] Protein [Mass/Vol] 6.8 g/dL Normal 6.4-8.3 [facility] Comment on above: Performed By: #### L [id number], IDY075, HTH136, LAB17, LZE244 ####Specialized Language Instructor: DOMENICA JARA ([id number])[facility])[address] [place] [address] Sodium [Moles/Vol] 131 mmol/L Low 136-145 [facility] Comment on above: Performed By: #### L [id number], FRI079, XSZ081, LAB17, WYW312 ####Specialized Language Instructor: DOMENICA JARA ([id number])[facility] [place] [address] Urea nitrogen [Mass/Vol] 29 mg/dL High 9-23 [facility] Comment on above: Performed By: #### L [id number], SNH421, DVX992, LAB17, BKB275 ####Specialized Language Instructor: DOMENICA JARA ([id number])[facility] [place] [address] CRP [Mass/Vol]on 02-21-2025 Interpretation and review of laboratory results Abnormal [facility] Comprehensive metabolic 1998 panelon 02-21-2025 Albumin [Mass/Vol] 2 g/dL Low 3.5 - 5.0 g/dL [facility] ALP [Catalytic activity/Vol] 120 U/L 40 - 150 U/L [facility] ALT [Catalytic activity/Vol] 8 U/L NINF - 40 U/L [facility] Anion gap [Moles/Vol] 12 mmol/L 3 - 13 mmol/L [facility] AST [Catalytic activity/Vol] 39 U/L High NINF - 34 U/L [facility] Bilirubin [Mass/Vol] 0.8 mg/dL NINF - 1.2 mg/dL [facility] Calcium [Mass/Vol] 9.3 mg/dL 8.4 - 10. 2 mg/dL [facility] Chloride [Moles/Vol] 91 mmol/L Low 98 - 10 7 mmol/L [facility] CO2 [Moles/Vol] 28 mmol/L 22 - 29 mmol/L [facility] Creatinine [Mass/Vol] 2.89 mg/dL High 0.72 - 1.25 mg/dL [facility] GFR/1.73 sq M.predicted (S/P/Bld) [Vol rate/Area] 24.3 mL/min Low - PINF [facility] Glucose [Mass/Vol] 74 mg/dL 74 - 100 mg/dL [facility] Potassium [Moles/Vol] 3.1 mmol/L Low 3.5 - 5.1 mmol/L [facility] Protein [Mass/Vol] 6.8 g/dL 6.4 - 8.3 g/dL [facility] Sodium [Moles/Vol] 131 mmol/L Low 136 - 145 mmol/L [facility] Urea nitrogen [Mass/Vol] 29 mg/dL High 9 - 23 mg/d L [facility] Consulton 02-21-2025 Consult Normal [facility] Consult Normal [facility] Consult Normal [facility] Consult Normal [facility] Laboratory - Chemistry and C hemistry - challengeon 02-21-2025 CRP [Mass/Vol] 60.3 mg/L High NINF - 5.0 mg/L [facility] Procalcitonin [Mass/Vol] 0.68 ng/mL High PROSPER F - 0.07 ng/mL [facility] Magnesium [Mass/Vol] 2.2 mg/dL 1.6 - 2 .6 mg/dL [facility] MAGNESIUMon 02-21-2025 Magnesium [Mass/Vol] 2.2 mg/dL Normal 1.6-2.6 [facility] Comment on above: Result Comment: ARPAN Kaplan COMMENTS:Higher values can be expected in females during menses. Performed By: #### L [id number], GEZ657, FIZ105, LAB17, ITQ154 ####Specialized Language Instructor: DOMENICA JARA ([id number])[address] Magnesium [Mass/Vol]on 02-21 Interpretation and review of laboratory results Normal [facility] No Panel Informationon 02-21 Interpretation and review of laboratory results Abnormal [facility] Nursing Noteon 02-21-2025 Nursing Note Pt ordered [employer] food. Assisted pt to sit up on bedside to eat. Normal [facility] Nursing Note Normal [facility] Nursing Note Pt declining scheduled medications until after RN calls facility to see if he is actively taking those medications per pt request. This RN spoke with RN at [facility] to verify medications that pt is taking. Normal [facility] Nursing Note Normal [facility] Nursing Note Pt removed NC from nose, stated he doesn't need it anymore. Respiratory Therapy came in to give pt, scheduled breathing treatment, pt stated he didn't need one. Normal [facility] Nursing Note Normal [facility] PHOSPHORUSon 02-21-2025 Phosphate [Mass/Vol] 2.0 mg/dL Low 2.3-4.7 [facility] Comment on above: Performed By: #### L [id number], LYC758, LFK189, LAB17, ZYN286 ####Specialized Language Instructor: DOMENICA JARA ([id number])[facility])[address] [place] [address] PROCALCITONIN TESTon 025 PROCALCITONIN 0.68 ng/mL High <0.07 [facility] Comment on above: Result Comment: ARPAN R COMMENTS:PCT <0.50 = Low risk of severe sepsis and/or septic shock.PCT >2.00 = High risk of severe sepsis and/or septic shock. Performed By: #### L [id number], QRD856, SVC467, LAB17, ZQB275 ####Specialized Language Instructor: DOMENICA JARA ([id number])[facility] ([facility])[address] [place] [address] [place] Phosphate [Moles/Vol]on 01-26 Phosphate [Mass/Vol] 2 mg/dL Low 2.3 - 4 .7 mg/dL [facility] Procalcitonin [Mass/Vol]on 0 02-21-2025 Interpretation and review of laboratory results Abnormal [facility] Progress Noteon 02-21-2025 Progress Note PHYSICAL THERAPY [facility] Name/MRN: Jair Snyder ([id number]) Date: 02/21/2025 Pt declined to work with therapy at this time, stating he wanted to eat first. Will reattempt at a later date. Sangeeta Sarabia, PT Normal [facility] Progress Note Normal [facility] Progress Note Normal [facility] RESPIRATORY PATHOGENS PANEL BY PCRon 02-21-2025 RESPIRATORY PATHOGENS PANEL BY PCR Normal [facility] Comment on above: Performed By: #### L [id number] ####Specialized Language Instructor: DOMENICA JARA ([id number])[facility])[address] [place], [place] [id number] [facility] Respiratory pathogens DNA an d RNA panel EMMANUEL+non-probe (Nph)on 02-21-2025 Adenovirus Not detected Not Detected [facility] B. pertussis DNA EMMANUEL+probe Ql (Unsp spec) Not detected Not Detected [facility] Bordetella parapertussis Not detected Not Detec yo [facility] Chlamydia pneumoniae Not detected Not Detected [facility] Coronavirus 229E Not detected Not Detected [facility] Coronavirus HKU1 Not detected Not Detected [facility] Coronavirus NL63 Not detected Not Detected [facility] Coronavirus OC43 Not detected Not Detected [facility] FLUAV RNA EMMANUEL+non-probe Ql (Nph) Not detected Not Detected [facility] FLUBV RNA EMMANUEL+non-probe Ql (Nph) Not detected Not Detected [facility] Human Metapneumovirus Not detected Not Detected [facility] Human Rhinovirus/Enterovirus Not detected Not Detected [facility] Interpretation and review of laboratory results Normal [facility] Mycoplasma pneumoniae Not detected Not Detected [facility] Parainfluenza 1 Not detected Not Detected [facility] Parainfluenza 2 Not detected Not Detected [facility] Parainfluenza 3 Not detected Not Detected [facility] Parainfluenza 4 Not detected Not Detected [facility] Respiratory Syncytial Virus Not detected Not Detected [facility] SARS-CoV-2 (COVID-19) RNA EMMANUEL+non-probe Ql (Nph) Not detected Not Detected [facility] aPTT Coag (Bld) [Time]on aPTT Coag (PPP) [Time] 50.3 s High 20.0 - 30.5 s [facility] Interpretation and review of laboratory results Abnormal [facility] aPTT Coag (PPP) [Time] 32.6 s High 20.0 - 30.5 s [facility] Interpretation and review of laboratory results Abnormal [facility] APTTon 02-20-2025 aPTT Coag (Bld) [Time] 26.2 s Normal 20.0-30.5 [place] Comment on above: Result Comment: ARPAN Kaplan COMMENTS:NOTE: The therapeutic time for Heparin anticoagulation, based on Xa activity inhibition, is an APTT of 46-80 seconds. Performed By: #### L AB320, EJJ225 ####Specialized Language Instructor: FENG CONSTANTINO ([id number])[facility] ([facility])[address] Absolute lymphocyte countOrd ered By: Kayley Melendrez on 02-20-2025 Lymphocytes Auto (Unsp spec) [#/Vol] 1.13 10*3/uL 0.83-4.51 [facility] Absolute neutrophil countOrd ered By: Kayley Melendrez on 02-20-2025 Neutrophils (Bld) [#/Vol] 4.6 10*3/uL 2.0-7.7 [facility] Anion gap in Serum or Plasma Ordered By: Kayley Melendrez on 02-20-2025 Anion gap [Moles/Vol] 12 mmol/L 5-15 [facility] Automated lymphocyte count a s percentage of total leukocytesOrdered By: Kayley Melendrez on 02-20-2025 Lymphocytes/100 WBC Auto (Unsp spec) 16.4 % Low 19-41 [facility] BASIC METABOLIC PANELon 01-26 Anion gap [Moles/Vol] 12 mmol/L Normal 3-13 [facility] Comment on above: Performed By: #### L AB15 ####Specialized Language Instructor: FENG CONSTANTINO ([id number])[facility]IALMatt DELILAHDAPHNIE ([facility])[address] Calcium [Mass/Vol] 9.6 mg/dL Normal 8.4-10.2 [facility] Comment on above: Performed By: #### L AB15 ####Specialized Language Instructor: FENG CONSTANTINO ([id number])[facility] [place] ([facility])[address] [place] [address] [place] Chloride [Moles/Vol] 92 mmol/L Low 98-107 [facility] Comment on above: Performed By: #### L AB15 ####Specialized Language Instructor: FENG CONSTANTINO ([id number])[facility]A BARBNORTHERN NAVAJO MEDICAL CENTERN ([facility])[address] CO2 [Moles/Vol] 29 mmol/L Normal 22-29 [facility] Comment on above: Performed By: #### L AB15 ####Specialized Language Instructor: FENG CONSTANTINO ([id number])[facility])[address] Creatinine [Mass/Vol] 2.57 mg/dL High 0.72-1.25 [facility] Comment on above: Performed By: #### L AB15 ####Specialized Language Instructor: FENG CONSTANTINO ([id number])[facility] ([facility])[address] GLOMERULAR FILTRATION RATE ML/MIN/1.73 SQ M.PREDICTED 27.9 mL/min/1.73m*2 Low >60.0 [facility] Comment on above: Result Comment: Calc ulation based on the Chronic Kidney Disease Epidemiology Collaboration (CKD-EPI) equation refit without adjustment for race Performed By: #### L AB15 ####Specialized Language Instructor: FENG CONSTANTINO ([id number])[facility] ([facility])[address] Glucose [Mass/Vol] 80 mg/dL Normal 74-100 [facility] Comment on above: Performed By: #### L AB15 ####Specialized Language Instructor: FENG CONSTANTINO ([id number])[facility] ([facility])[address] Potassium [Moles/Vol] 3.1 mmol/L Low 3.5-5.1 [facility] Comment on above: Result Comment: [facility] potassium values may be up to 0.5 mmol/L lower than serum values. Performed By: #### L AB15 ####Specialized Language Instructor: FENG CONSTANTINO ([id number])[facility] ([facility])[address] Sodium [Moles/Vol] 133 mmol/L Low 136-145 [facility] Comment on above: Performed By: #### L AB15 ####Specialized Language Instructor: FENG CONSTANTINO ([id number])[facility]IALMatt MYERSNORTHERN NAVAJO MEDICAL CENTERChandana ([facility])[address] Urea nitrogen [Mass/Vol] 29 mg/dL High 9-23 [facility] Comment on above: Performed By: #### L AB15 ####Specialized Language Instructor: FENG CONSTANTINO ([id number])[facility]AH[facility] ([facility])[address] BUN/creatinine ratioOrdered By: Kayley Melendrez on 02-20-2025 Urea nitrogen/Creatinine [Mass ratio] 11.5 mg/mg 10-20 [facility] Basic metabolic 1998 panelon 02-20-2025 Anion gap [Moles/Vol] 12 mmol/L 3 - 13 mmol/L [facility] Calcium [Mass/Vol] 9.6 mg/dL 8.4 - 10. 2 mg/dL [facility] Chloride [Moles/Vol] 92 mmol/L Low 98 - 10 7 mmol/L [facility] CO2 [Moles/Vol] 29 mmol/L 22 - 29 mmol/L [facility] Creatinine [Mass/Vol] 2.57 mg/dL High 0.72 - 1.25 mg/dL [facility] GFR/1.73 sq M.predicted (S/P/Bld) [Vol rate/Area] 27.9 mL/min Low - PINF [facility] Glucose [Mass/Vol] 80 mg/dL 74 - 100 mg/dL [facility] Interpretation and review of laboratory results Abnormal [facility] Potassium [Moles/Vol] 3.1 mmol/L Low 3.5 - 5.1 mmol/L [facility] Sodium [Moles/Vol] 133 mmol/L Low 136 - 145 mmol/L [facility] Urea nitrogen [Mass/Vol] 29 mg/dL High 9 - 23 mg/d L [facility] Basophil percentageOrdered B y: Kayley Melendrez on 02-20-2025 Basophils/100 WBC (Bld) 1.4 % High 0-1 [facility] Bilirubin, totalOrdered By: Kayley Melendrez on 02-20-2025 Bilirubin [Mass/Vol] 0.64 mg/dL 0.00-1.30 [facility] CBC (HEMOGRAM)on 02-20-2025 Erythrocyte distribution width (RBC) [Ratio] 18.8 % High 11.5-15.0 [facility] Comment on above: Performed By: #### L AB294 ####Specialized Language Instructor: FENG CONSTANTINO ([id number])[facility] ([facility])[address] Hematocrit (Bld) [Volume fraction] 26.8 % Low 40.0-52.0 [facility] Comment on above: Performed By: #### L AB294 ####Specialized Language Instructor: FENG CONSTANTINO ([id number])[facility]IALMatt [place] ([facility])[address] Hemoglobin (Bld) [Mass/Vol] 8.7 g/dL Low 13.0-18.0 [facility] Comment on above: Performed By: #### L AB294 ####Specialized Language Instructor: FENG CONSTANTINO ([id number])[facility]IALMatt [facility] ([facility])[address] MCH (RBC) [Entitic mass] 28.7 pg Normal 26.0-34.0 [facility] Comment on above: Performed By: #### L AB294 ####Specialized Language Instructor: FENG CONSTANTINO ([id number])[facility]Matt [place] ([facility])[address] MCHC 32.5 % Normal 30.5-36.0 [facility] Comment on above: Performed By: #### L AB294 ####Specialized Language Instructor: FENG CONSTANTINO ([id number])[facility]IALMatt [place] ([facility])[address] MCV (RBC) [Entitic vol] 88.4 fL Normal 77.0-99.0 [facility] Comment on above: Performed By: #### L AB294 ####Specialized Language Instructor: FENG CONSTANTINO ([id number])[facility]IALMatt [place] ([facility])[address] Platelet mean volume (Bld) [Entitic vol] 8.5 fL Low 9.0-12.7 [facility] Comment on above: Performed By: #### L AB294 ####Specialized Language Instructor: FENG VILLAGOMEZMitzyGEORGE ([id number])[facility] [place] ([facility])[address] Platelets (Bld) [#/Vol] 312 10*3/uL Normal 140-440 [facility] Comment on above: Performed By: #### L AB294 ####Specialized Language Instructor: FENG DOUGIE ([id number])[facility]IALMatt [place] ([facility])[address] RBC (Bld) [#/Vol] 3.03 10*6/uL Low 4.40-5.90 [facility] Comment on above: Performed By: #### L AB294 ####Specialized Language Instructor: FENG VILLAGOMEZALESIA ([id number])[facility]IALMatt [facility] ([facility])[address] [place] [address] WBC (Bld) [#/Vol] 9.4 10*3/uL Normal 3.6-10.7 [facility] Comment on above: Performed By: #### L AB294 ####Specialized Language Instructor: FENG VILLAGOMEZALESIA ([id number])[facility] ([facility])[address] CBC W/Diff, Automatedon 05-2 Absolute Lymph 1.13 X10 3/uL Normal 0.83-4.51 [facility] Comment on above: Order Comment: 413-2 Performed By: #### L 100.0100, L300.3900, L500.4050 #### [facility] [address] [place], [address] Absolute Neut 4.6 X10 3/uL Normal 2.0-7.7 [facility] Comment on above: Order Comment: 413-2 Performed By: #### L 100.0100, L300.3900, L500.4050 #### [facility] [address] [place], [address] Basophils/100 WBC (Bld) 1.4 % High 0-1 [facility] Comment on above: Order Comment: 413-2 Performed By: #### L 100.0100, L300.3900, L500.4050 #### [facility] [address] [place], [address] Eosinophils/100 WBC (Bld) 2.5 % Normal 0-5 [facility] Comment on above: Order Comment: 413-2 Performed By: #### L 100.0100, L300.3900, L500.4050 #### [facility] [address] [place], [address] Erythrocyte distribution width (RBC) [Ratio] 19.4 % High 11.6-14.6 [facility] Comment on above: Order Comment: 413-2 Performed By: #### L 100.0100, L300.3900, L500.4050 #### [facility] [address] [place], [address] Hematocrit (Bld) [Volume fraction] 25.9 % Low 40-54 [facility] Comment on above: Order Comment: 413-2 Performed By: #### L 100.0100, L300.3900, L500.4050 #### [facility] [address] [place], [address] Hemoglobin (Bld) [Mass/Vol] 8.5 g/dL Low 13.0-16.5 [facility] Comment on above: Order Comment: 413-2 Performed By: #### L 100.0100, L300.3900, L500.4050 #### [facility] [address] [place], [address] IG% 0.400 Normal 0.0-0.9 [facility] Comment on above: Order Comment: 413-2 Result Comment: IG% - Immature Granulocytes (promyelocytes, myelocytes and metamyelocytes) > 1% indicates that a LEFT SHIFT is Present. Performed By: #### L 100.0100, L300.3900, L500.4050 #### [facility] [address] [place], [address] Lymphocytes/100 WBC (Bld) 16.4 % Low 19-41 [facility] Comment on above: Order Comment: 413-2 Performed By: #### L 100.0100, L300.3900, L500.4050 #### [facility] [address] [place], [address] MCH (RBC) [Entitic mass] 30.1 pg Normal 27.0-32.0 [facility] Comment on above: Order Comment: 413-2 Performed By: #### L 100.0100, L300.3900, L500.4050 #### [facility] [address] [place], [address] MCHC (RBC) [Mass/Vol] 32.8 g/dL Normal 32-36 [facility] Comment on above: Order Comment: 413-2 Performed By: #### L 100.0100, L300.3900, L500.4050 #### [facility] [address] [place], [address] MCV (RBC) [Entitic vol] 91.8 fL Normal 80-[address] [facility] Comment on above: Order Comment: 413-2 Performed By: #### L 100.0100, L300.3900, L500.4050 #### [facility] [address] [place], [address] Monocytes/100 WBC (Bld) 12.0 % High 0-10 [facility] Comment on above: Order Comment: 413-2 Performed By: #### L 100.0100, L300.3900, L500.4050 #### [facility] [address] [place], [address] Neutrophils/100 WBC (Bld) 67.3 % Normal 47-70 [facility] Comment on above: Order Comment: 413-2 Performed By: #### L 100.0100, L300.3900, L500.4050 #### [facility] [address] [place], [address] Nucleated RBC (Bld) [#/Vol] 0 10*3/uL Normal 0-5 [facility] Comment on above: Order Comment: 413-2 Performed By: #### L 100.0100, L300.3900, L500.4050 #### [facility] [address] [place], [address] Platelet mean volume (Bld) [Entitic vol] 9.0 fL Normal 6.2-12.0 [facility] Comment on above: Order Comment: 413-2 Performed By: #### L 100.0100, L300.3900, L500.4050 #### [facility] [address] [place], [address] Platelets (Bld) [#/Vol] 322 10*3/uL Normal 150-450 [facility] Comment on above: Order Comment: 413-2 Performed By: #### L 100.0100, L300.3900, L500.4050 #### [facility] [address] [place], [address] RBC (Bld) [#/Vol] 2.82 10*6/uL Low 4.6-6.2 [facility] Comment on above: Order Comment: 413-2 Performed By: #### L 100.0100, L300.3900, L500.4050 #### [facility] [address] [place], [address] RDW SD 63.5 fl High 35.1-43.9 [facility] Comment on above: Order Comment: 413-2 Performed By: #### L 100.0100, L300.3900, L500.4050 #### [facility] [address] [place], [address] WBC (Bld) [#/Vol] 6.9 10*3/uL Normal 4.4-11.0 [facility] Comment on above: Order Comment: 413-2 Performed By: #### L 100.0100, L300.3900, L500.4050 #### [facility] [address] [place], [address] CBC panel Auto (Bld)on 02-20 Erythrocyte distribution width (RBC) [Ratio] 18.8 % High 11.5 - 15.0 % [facility] Hematocrit (Bld) [Volume fraction] 26.8 % Low 40.0 - 52.0 % [facility] Hemoglobin (Bld) [Mass/Vol] 8.7 g/dL Low 13.0 - 18.0 g/dL [facility] Interpretation and review of laboratory results Abnormal [facility] MCH (RBC) [Entitic mass] 28.7 pg 26. 0 - 34.0 pg [facility] MCHC (RBC) [Mass/Vol] 32.5 % 30.5 - 36.0 % [facility] MCV (RBC) [Entitic vol] 88.4 fL 77.0 - 99.0 fL [facility] Platelet mean volume (Bld) [Entitic vol] 8.5 fL Low 9.0 - 12.7 fL [facility] Platelets (Bld) [#/Vol] 312 10*3/uL 140 - 440 10*3/uL [facility] RBC (Bld) [#/Vol] 3.03 10*6/uL Low 4.40 - 5.9 0 10*6/uL [facility] WBC (Bld) [#/Vol] 9.4 10*3/uL 3.6 - 10.7 10*3/uL [facility] CT CHEST ANGIOGRAM W AND/OR WO IV CONTRASTon 02-20-2025 CT CHEST ANGIOGRAM W AND/OR WO IV CONTRAST Normal [facility] CTA Chest vessels WO and W c ontrast Dimitrios 02-20-2025 [facility] Radiology Study observation (narrative) [facility] Chest vessels WO and W c ontrast IVOrdered By: Justo Milan on 02-20-2025 [facility] Work Phone: Carbon dioxide, total [Moles /volume] in Central venous bloodOrdered By: Kayley Melendrez on 02-20-2025 CO2 [Moles/Vol] 30.1 mmol/L 21.0-32.0 [facility] Chloride assayOrdered By: Carmen Melendrez on 02-20-2025 Chloride [Moles/Vol] 91 mmol/L Low 98-108 [facility] Comprehensive Metabolic Prof ilon 02-20-2025 Albumin [Mass/Vol] 3.0 g/dL Low 3.5-5.0 [facility] Comment on above: Order Comment: 413-2 Performed By: #### L 100.0100, L300.3900, L500.4050 #### [facility] [address] [place], [address] Albumin/Globulin [Mass ratio] 0.8 {ratio} Low 0.9-2.4 [facility] Comment on above: Order Comment: 413-2 Performed By: #### L 100.0100, L300.3900, L500.4050 #### [facility] [address] [place], [address] ALK PHOS 133 U/L High 40-129 [facility] Comment on above: Order Comment: 413-2 Performed By: #### L 100.0100, L300.3900, L500.4050 #### [facility] [address] [place], [address] ALT [Catalytic activity/Vol] 13 U/L Normal <=46 [facility] Comment on above: Order Comment: 413-2 Performed By: #### L 100.0100, L300.3900, L500.4050 #### [facility] [address] [place], [address] AST [Catalytic activity/Vol] 32 U/L Normal <=37 [facility] Comment on above: Order Comment: 413-2 Performed By: #### L 100.0100, L300.3900, L500.4050 #### [facility] [address] [place], [address] Bilirubin [Mass/Vol] 0.64 mg/dL Normal 0.00-1.30 [facility] Comment on above: Order Comment: 413-2 Performed By: #### L 100.0100, L300.3900, L500.4050 #### [facility] [address] [place], [address] BUN/CRE 11.5 RATIO Normal 10-20 [facility] Comment on above: Order Comment: 413-2 Performed By: #### L 100.0100, L300.3900, L500.4050 #### [facility] [address] [place], [address] Calcium [Mass/Vol] 9.8 mg/dL Normal 7.6-11.0 [facility] Comment on above: Order Comment: 413-2 Performed By: #### L 100.0100, L300.3900, L500.4050 #### [facility] [address] [place], [address] Chloride [Moles/Vol] 91 mmol/L Low 98-108 [facility] Comment on above: Order Comment: 413-2 Performed By: #### L 100.0100, L300.3900, L500.4050 #### [facility] [address] [place], [address] CO2 [Moles/Vol] 30.1 mmol/L Normal 21.0-32.0 [facility] Comment on above: Order Comment: 413-2 Performed By: #### L 100.0100, L300.3900, L500.4050 #### [facility] [address] [place], [address] Creatinine [Mass/Vol] 3.87 mg/dL High 0.70-1.20 [facility] Comment on above: Order Comment: 413-2 Performed By: #### L 100.0100, L300.3900, L500.4050 #### [facility] [address] [place], [address] GAP 12 Normal 5-15 [facility] Comment on above: Order Comment: 413-2 Performed By: #### L 100.0100, L300.3900, L500.4050 #### [facility] [address] [place], [address] GFR/1.73 sq M.predicted among non-blacks MDRD (S/P/Bld) [Vol rate/Area] 17 mL/min/{1.73_m2} Low >60 [facility] Comment on above: Order Comment: 413-2 Result Comment: mL/m in/1.73m2 CKD-EPI Creatinine Equation (2020) Performed By: #### L 100.0100, L300.3900, L500.4050 #### [facility] [address] [place], [address] Globulin (S) [Mass/Vol] 4.0 g/dL Normal 2.2-4.[address] [facility] Comment on above: Order Comment: 413-2 Performed By: #### L 100.0100, L300.3900, L500.4050 #### [facility] [address] [place], [address] Glucose [Mass/Vol] 78 mg/dL Normal 70-99 [facility] Comment on above: Order Comment: 413-2 Performed By: #### L 100.0100, L300.3900, L500.4050 #### [facility] [address] [place], [address] Potassium [Moles/Vol] 3.0 mmol/L Low 3.3-5.1 [facility] Comment on above: Order Comment: 413-2 Performed By: #### L 100.0100, L300.3900, L500.4050 #### [facility] [address] [place], [address] Sodium [Moles/Vol] 134 mmol/L Normal 133-145 [facility] Comment on above: Order Comment: 413-2 Performed By: #### L 100.0100, L300.3900, L500.4050 #### [facility] [address] [place], [address] T PROT 6.9 g/dL Normal 5.9-8.4 [facility] Comment on above: Order Comment: 413-2 Performed By: #### L 100.0100, L300.3900, L500.4050 #### [facility] [address] [place], [address] Urea nitrogen [Mass/Vol] 44 mg/dL High 4-19 [facility] Comment on above: Order Comment: 413-2 Performed By: #### L 100.0100, L300.3900, L500.4050 #### [facility] [address] [place], [address] ED Nursing Noteon 02-20-2025 ED Nursing Note Called report to 3W nurse who will be taking over pt care. Normal [facility] ED Nursing Note Attempted to reposition pt and have him sit up but pt states he feels fine and does not want to sit updespite coughing up blood. Normal [facility] ED Nursing Note Pt placed on 2L NC due to O2 saturation of 90%. Currently 97 on 2L Normal [facility] ED Nursing Note Suction turned on at this time for pt due to increased coughing up of blood Normal [facility] ED Nursing Note Normal [facility] ED Nursing Note [facility] ED Provider Noteon ED Provider Note [facility] Eosinophil percentageOrdered By: Kayley Melendrez on 02-20-2025 Eosinophils/100 WBC (Bld) 2.5 % 0-5 [facility] Erythrocyte distribution wid th ratioOrdered By: Kayley Melendrez on 02-20-2025 Erythrocyte distribution width (RBC) [Ratio] 19.4 % High 11.6-14.6 [facility] Erythrocyte distribution wid th standard deviationOrdered By: Kayley Melendrez on 02-20-2025 Erythrocyte distribution width (RBC) [Ratio] 63.5 fl High 35.1-43.9 [facility] Glomerular filtration rate ( GFR) estimation/1.73 sq m using serum, plasma, or whole bOrdered By: Kayley Melendrez on 02-20-2025 GFR/1.73 sq M.predicted among non-blacks MDRD (S/P/Bld) [Vol rate/Area] 17 mL/min/{1.73_m2} Low >60 [facility] Comment on above: mL/min/1.73m2 CKD-EP I Creatinine Equation (2020) Hematocrit Auto (Bld) [Volum e fraction]Ordered By: Kayley Melendrez on 02-20-2025 Hematocrit (Bld) [Volume fraction] 25.9 % Low 40-54 [facility] Hemoglobin measurementOrdere d By: Kayley Melendrez on 02-20-2025 Hemoglobin (Bld) [Mass/Vol] 8.5 g/dL Low 13.0-16.5 [facility] Immature granulocytes/100 WB C Auto (Bld)Ordered By: Kayley Melendrez on 02-20-2025 Immature granulocytes/100 WBC (Bld) 0.400 % 0.0-0.9 [facility] Comment on above: IG% - Immature Granu locytes (promyelocytes, myelocytes and metamyelocytes) > 1% indicates that a LEFT SHIFT is Present. International normalized rat io (INR) calculationOrdered By: Kayley Melendrez on 02-20-2025 INR Coag (Bld) [Relative time] 1.4 {INR} [facility] - Chemistry and C hemistry - challengeOrdered By: Kayley Melendrez on 02-20-2025 AST [Catalytic activity/Vol] 32 U/L <38 [facility] - Coagulationon 0 02-20-2025 PT Coag (Bld) [Time] 14.7 s High 9.0 - 12.0 s [facility] MCV (mean corpuscular volume ) determinationOrdered By: Kayley Melendrez on 02-20-2025 MCV (RBC) [Entitic vol] 91.8 fL 80-94 [facility] Mean corpuscular hemoglobin (MCH) determinationOrdered By: Kayley Melendrez on 02-20-2025 MCH (RBC) [Entitic mass] 30.1 pg 27.0-32.0 [facility] Mean corpuscular hemoglobin concentration (MCHC) determinationOrdered By: Kayley Melendrez on 02-20-2025 MCHC (RBC) [Mass/Vol] 32.8 g/dL 32-36 [facility] Mean platelet volume determi nationOrdered By: Kayley Melendrez on 02-20-2025 Platelet mean volume (Bld) [Entitic vol] 9.0 fL 6.2-12.0 [facility] Monocyte percentageOrdered B y: Kayley Melendrez on 02-20-2025 Monocytes/100 WBC (Bld) 12.0 % High 0-10 [facility] Neutrophil percentageOrdered By: Kayley Melendrez on 02-20-2025 Neutrophils/100 WBC (Bld) 67.3 % 47-70 [facility] No Panel Informationon 02-20 [facility] Nucleated red blood cell per centageOrdered By: Kayley Melendrez on 02-20-2025 Nucleated RBC/100 WBC (Bld) [Ratio] 0 % 0-5 [facility] Nursing Noteon 02-20-2025 Nursing Note Pt arrived on floor via consuel[employer] transport Normal [facility] PROTHROMBIN TIMEon INR Coag (PPP) [Relative time] 1.4 {INR} High 0.9-1.1 [facility] Comment on above: Result Comment: Vaughn mmended [...] Myocardial Infarction Performed By: #### L AB320, [id number] ####Specialized Language Instructor: FENG CONSTANTINO ([id number])[facility] (HLAB)[address] [place] [address] PT Coag (PPP) [Time] 14.7 s High 9.0-12.0 [facility] Comment on above: Performed By: #### L AB320, [id number] ####Specialized Language Instructor: FENG CONSTANTINO ([id number])[facility] (SB[facility])[address] [place] [address] PT Coag (Bld) [Time]on 02-20 INR Coag (PPP) [Relative time] 1.4 {INR} High 0.9 - 1.1 [facility] Interpretation and review of laboratory results Abnormal [facility] Platelet countOrdered By: Carmen Melendrez on 02-20-2025 Platelets (Bld) [#/Vol] 322 10*3/uL 150-450 [facility] Potassium measurement (mass/ volume)Ordered By: Kayley Melendrez on 02-20-2025 Potassium (Unsp spec) [Mass/Vol] 3.0 mmol/L Low 3.3-5.1 [facility] Prothrombin Time w/INRon INR Coag (PPP) [Relative time] 1.4 {INR} Normal [facility] Comment on above: Order Comment: 413-2 Performed By: #### L 100.0100, L300.3900, L500.4050 #### [facility] [address] [place], [address] PT Coag (PPP) [Time] 17.5 s High 11.7-14.9 [facility] Comment on above: Order Comment: 413-2 Performed By: #### L 100.0100, L300.3900, L500.4050 #### [facility] [address] [place], [address] Prothrombin timeOrdered By: Kayley Melendrez on 02-20-2025 PT Coag (PPP) [Time] 17.5 s High 11.7-14.9 [facility] RBC Auto (Bld) [#/Vol]Ordere d By: Kayley Melendrez on 02-20-2025 RBC (Bld) [#/Vol] 2.82 10*6/uL Low 4.6-6.2 [facility] Serum creatinine measurement (mass/volume)Ordered By: Kayley Melendrez on 02-20-2025 Creatinine [Mass/Vol] 3.87 mg/dL High 0.70-1.20 [facility] Serum globulin measurementOr dered By: Kayley Melendrez on 02-20-2025 Globulin (S) [Mass/Vol] 4.0 g/dL 2.2-4.[address] [facility] Serum glucose measurement (m ass/volume)Ordered By: Kayley Melendrez on 02-20-2025 Glucose [Mass/Vol] 78 mg/dL 70-99 [facility] Serum or plasma alanine mayorga otransferase (ALT) measurementOrdered By: Kayley Melendrez on 02-20-2025 ALT [Catalytic activity/Vol] 13 U/L <47 [facility] Serum or plasma albumin audrey urement (mass/volume)Ordered By: Kayley Melendrez on 02-20-2025 Albumin [Mass/Vol] 3.0 g/dL Low 3.5-5.0 [facility] Serum or plasma albumin/glob ulin mass ratioOrdered By: Kayley Melendrez on 02-20-2025 Albumin/Globulin [Mass ratio] 0.8 {ratio} Low 0.9-2.4 [facility] Serum or plasma alkaline jacob sphatase measurementOrdered By: Kayley Melendrez on 02-20-2025 ALP [Catalytic activity/Vol] 133 U/L High 40-129 [facility] Serum or plasma calcium audrey urement (mass/volume)Ordered By: Kayley Melendrez on 02-20-2025 Calcium [Mass/Vol] 9.8 mg/dL 7.6-11.0 [facility] Serum or plasma urea nitroge n measurement (mass/volume)Ordered By: Kayley Melendrez on 02-20-2025 Urea nitrogen [Mass/Vol] 44 mg/dL High 4-19 [facility] Sodium levelOrdered By: Omega Melendrez on 02-20-2025 Sodium [Moles/Vol] 134 mmol/L 133-145 [facility] Total proteinOrdered By: Lexis Melendrez on 02-20-2025 Protein [Mass/Vol] 6.9 g/dL 5.9-8.4 [facility] White blood cell (WBC) count Ordered By: Kayley Melendrez on 02-20-2025 WBC (Bld) [#/Vol] 6.9 10*3/uL 4.4-11.0 [facility] aPTT Coag (Bld) [Time]on aPTT Coag (PPP) [Time] 26.2 s 20.0 - 30.5 s [facility] Interpretation and review of laboratory results Normal [facility] International normalized rat io (INR) calculationOrdered By: Kayley Melendrez on 02-15-2025 INR Coag (Bld) [Relative time] 1.3 {INR} [facility] Prothrombin Time w/INRon INR Coag (PPP) [Relative time] 1.3 {INR} Normal [facility] Comment on above: Order Comment: 413-2 Performed By: #### L 100.0100, L300.3900, L500.4050 #### [facility] [address] [place], [address] PT Coag (PPP) [Time] 16.6 s High 11.7-14.9 [facility] Comment on above: Order Comment: 413-2 Performed By: #### L 100.0100, L300.3900, L500.4050 #### [facility] [address] [place], [address] Prothrombin timeOrdered By: Kayley Melendrez on 02-15-2025 PT Coag (PPP) [Time] 16.6 s High 11.7-14.9 [facility] Nursing Noteon 02-14-2025 Nursing Note Normal [facility] Progress Noteon 02-14-2025 Progress Note Patient completed 6 week course of Amp-Sulbactam on 02/13/25 for sacral osteomyelitis. Tunneled line has since been removed. Continue to monitor off antibiotics at this time. Continue wound care. Normal [facility] Progress Note Normal [facility] International normalized rat io (INR) measurement by fingerstickOrdered By: Kayley Melendrez on 02-13-2025 INR Coag (BldC) [Relative time] 1.7 [facility] Comment on above: Critical Value > 4.0 Protime w/INR Fingerstickon 02-13-2025 INR Coag (PPP) [Relative time] 1.7 {INR} Normal [facility] Comment on above: Result Comment: Crit ical Value > 4.0 Performed By: #### L 9200.0000 #### [facility] [address] [place], [address] Protime Coagsen 19.1 SEC High 11.7-14.9 [facility] Comment on above: Performed By: #### L 9200.0000 #### [facility] [address] [place], [place], [id number] Whole blood prothrombin time Ordered By: Kayley Melendrez on 02-13-2025 PT Coag (Bld) [Time] 19.1 s High 11.7-14.9 [facility] Absolute lymphocyte countOrd ered By: Kayley Melendrez on 02-12-2025 Lymphocytes Auto (Unsp spec) [#/Vol] 1.29 10*3/uL 0.83-4.51 [facility] Absolute neutrophil countOrd ered By: Kayley Melendrez on 02-12-2025 Neutrophils (Bld) [#/Vol] 4.7 10*3/uL 2.0-7.7 [facility] Anion gap in Serum or Plasma Ordered By: Kayley Melendrez on 02-12-2025 Anion gap [Moles/Vol] 12 mmol/L 5- [facility] Automated lymphocyte count a s percentage of total leukocytesOrdered By: Kayley Melendrez on 02-12-2025 Lymphocytes/100 WBC Auto (Unsp spec) 17.7 % Low - [facility] BUN/creatinine ratioOrdered By: Kayley Melendrez on 02-12-2025 Urea nitrogen/Creatinine [Mass ratio] 10.3 mg/mg 10-20 [facility] Basophil percentageOrdered B y: Kayley Melendrez on 02-12-2025 Basophils/100 WBC (Bld) 1.1 % High 0-1 [facility] Bilirubin, totalOrdered By: Kayley Melendrez on 02-12-2025 Bilirubin [Mass/Vol] 0.69 mg/dL 0.00-1.30 [facility] CBC W/Diff, Automatedon 01-25 Absolute Lymph 1.29 X10 3/uL Normal 0.83-4.51 [facility] Comment on above: Performed By: #### L 300.3900, L100.0100, L500.4050 #### [facility] [address], [address] Absolute Neut 4.7 X10 3/uL Normal 2.0-7.7 [facility] Comment on above: Performed By: #### L 300.3900, L100.0100, L500.4050 #### [facility] [address] [place], [address] Basophils/100 WBC (Bld) 1.1 % High 0-1 [facility] Comment on above: Performed By: #### L 300.3900, L100.0100, L500.4050 #### [facility] [address] [place], [address] Eosinophils/100 WBC (Bld) 4.7 % Normal 0-5 [facility] Comment on above: Performed By: #### L 300.3900, L100.0100, L500.4050 #### [facility] [address] [place], [address] Erythrocyte distribution width (RBC) [Ratio] 18.3 % High 11.6-14.6 [facility] Comment on above: Performed By: #### L 300.3900, L100.0100, L500.4050 #### [facility] [address] [place], [address] Hematocrit (Bld) [Volume fraction] 24.6 % Low 40-54 [facility] Comment on above: Performed By: #### L 300.3900, L100.0100, L500.4050 #### [facility] [address] [place], [address] Hemoglobin (Bld) [Mass/Vol] 8.0 g/dL Low 13.0-16.5 [facility] Comment on above: Performed By: #### L 300.3900, L100.0100, L500.4050 #### [facility] [address] [place], [address] IG% 0.500 Normal 0.0-0.9 [facility] Comment on above: Result Comment: IG% - Immature Granulocytes (promyelocytes, myelocytes and metamyelocytes) > 1% indicates that a LEFT SHIFT is Present. Performed By: #### L 300.3900, L100.0100, L500.4050 #### [facility] [address] [place], [address] Lymphocytes/100 WBC (Bld) 17.7 % Low 19-41 [facility] Comment on above: Performed By: #### L 300.3900, L100.0100, L500.4050 #### [facility] [address] [place], [address] MCH (RBC) [Entitic mass] 29.3 pg Normal 27.0-32.0 [facility] Comment on above: Performed By: #### L 300.3900, L100.0100, L500.4050 #### [facility] [address] [place], [address] MCHC (RBC) [Mass/Vol] 32.5 g/dL Normal 32-36 [facility] Comment on above: Performed By: #### L 300.3900, L100.0100, L500.4050 #### [facility] [address] [place], [address] MCV (RBC) [Entitic vol] 90.1 fL Normal 80-[address] [facility] Comment on above: Performed By: #### L 300.3900, L100.0100, L500.4050 #### [facility] [facility] [address] [place], [address] Monocytes/100 WBC (Bld) 11.9 % High 0-10 [facility] Comment on above: Performed By: #### L 300.3900, L100.0100, L500.4050 #### [facility] [address] [place], [address] Neutrophils/100 WBC (Bld) 64.1 % Normal 47-70 [facility] Comment on above: Performed By: #### L 300.3900, L100.0100, L500.4050 #### [facility] [address] [place], [address] Nucleated RBC (Bld) [#/Vol] 0 10*3/uL Normal 0-5 [facility] Comment on above: Performed By: #### L 300.3900, L100.0100, L500.4050 #### [facility] [address] [place], [address] Platelet mean volume (Bld) [Entitic vol] 9.2 fL Normal 6.2-12.0 [facility] Comment on above: Performed By: #### L 300.3900, L100.0100, L500.4050 #### [facility] [address] [place], [address] Platelets (Bld) [#/Vol] 294 10*3/uL Normal 150-450 [facility] Comment on above: Performed By: #### L 300.3900, L100.0100, L500.4050 #### [facility] [address] [place], [address] RBC (Bld) [#/Vol] 2.73 10*6/uL Low 4.6-6.2 [facility] Comment on above: Performed By: #### L 300.3900, L100.0100, L500.4050 #### [facility] [address] [place], [address] RDW SD 59.4 fl High 35.1-43.9 [facility] Comment on above: Performed By: #### L 300.3900, L100.0100, L500.4050 #### [facility] [address] [place], [address] WBC (Bld) [#/Vol] 7.3 10*3/uL Normal 4.4-11.0 [facility] Comment on above: Performed By: #### L 300.3900, L100.0100, L500.4050 #### [facility] [address] [place], [address] Carbon dioxide, total [Moles /volume] in Central venous bloodOrdered By: Kayley Melendrez on 02-12-2025 CO2 [Moles/Vol] 28.4 mmol/L 21.0-32.0 [facility] Chloride assayOrdered By: Carmen Melendrez on 02-12-2025 Chloride [Moles/Vol] 91 mmol/L Low 98-108 [facility] Comprehensive Metabolic Prof ilon 02-12-2025 Albumin [Mass/Vol] 2.9 g/dL Low 3.5-5.0 [facility] Comment on above: Performed By: #### L 300.3900, L100.0100, L500.4050 #### [facility] [address] [place], [address] Albumin/Globulin [Mass ratio] 0.7 {ratio} Low 0.9-2.4 [facility] Comment on above: Performed By: #### L 300.3900, L100.0100, L500.4050 #### [facility] [address] [place], [address] ALK PHOS 177 U/L High 40-129 [facility] Comment on above: Performed By: #### L 300.3900, L100.0100, L500.4050 #### [facility] [address] [place], [address] ALT [Catalytic activity/Vol] 9 U/L Normal <=46 [facility] Comment on above: Performed By: #### L 300.3900, L100.0100, L500.4050 #### [facility] [address] [place], [address] AST [Catalytic activity/Vol] 34 U/L Normal <=37 [facility] Comment on above: Performed By: #### L 300.3900, L100.0100, L500.4050 #### [facility] [address] [place], [address] Bilirubin [Mass/Vol] 0.69 mg/dL Normal 0.00-1.30 [facility] Comment on above: Performed By: #### L 300.3900, L100.0100, L500.4050 #### [facility] [address] [place], [address] BUN/CRE 10.3 RATIO Normal 10-20 [facility] Comment on above: Performed By: #### L 300.3900, L100.0100, L500.4050 #### [facility] [address] [place], [address] Calcium [Mass/Vol] 9.9 mg/dL Normal 7.6-11.0 [facility] Comment on above: Performed By: #### L 300.3900, L100.0100, L500.4050 #### [facility] [address] [place], [address] Chloride [Moles/Vol] 91 mmol/L Low 98-108 [facility] Comment on above: Performed By: #### L 300.3900, L100.0100, L500.4050 #### [facility] [address] [place], [address] CO2 [Moles/Vol] 28.4 mmol/L Normal 21.0-32.0 [facility] Comment on above: Performed By: #### L 300.3900, L100.0100, L500.4050 #### [facility] [address] [place], [address] Creatinine [Mass/Vol] 4.17 mg/dL High 0.70-1.20 [facility] Comment on above: Performed By: #### L 300.3900, L100.0100, L500.4050 #### [facility] [address] [place], [address] GAP 12 Normal 5-15 [facility] Comment on above: Performed By: #### L 300.3900, L100.0100, L500.4050 #### [facility] [address] [place], [address] GFR/1.73 sq M.predicted among non-blacks MDRD (S/P/Bld) [Vol rate/Area] 16 mL/min/{1.73_m2} Low >60 [facility] Comment on above: Result Comment: mL/m in/1.73m2 CKD-EPI Creatinine Equation (2020) Performed By: #### L 300.3900, L100.0100, L500.4050 #### [facility] [address] [place], [address] Globulin (S) [Mass/Vol] 4.2 g/dL Normal 2.2-4.[address] [facility] Comment on above: Performed By: #### L 300.3900, L100.0100, L500.4050 #### [facility] [address] [place], [address] Glucose [Mass/Vol] 77 mg/dL Normal 70-99 [facility] Comment on above: Performed By: #### L 300.3900, L100.0100, L500.4050 #### [facility] [address] [place], [address] Potassium [Moles/Vol] 3.2 mmol/L Low 3.3-5.1 [facility] Comment on above: Performed By: #### L 300.3900, L100.0100, L500.4050 #### [facility] [address] [place], [address] Sodium [Moles/Vol] 131 mmol/L Low 133-145 [facility] Comment on above: Performed By: #### L 300.3900, L100.0100, L500.4050 #### [facility] [address] [place], [address] T PROT 7.1 g/dL Normal 5.9-8.4 [facility] Comment on above: Performed By: #### L 300.3900, L100.0100, L500.4050 #### [facility] [address] [place], [address] Urea nitrogen [Mass/Vol] 43 mg/dL High -19 [facility] Comment on above: Performed By: #### L 300.3900, L100.0100, L500.4050 #### [facility] [address] [place], [address] Eosinophil percentageOrdered By: Kayley Melendrez on 02-12-2025 Eosinophils/100 WBC (Bld) 4.7 % 0-5 [facility] Erythrocyte distribution wid th ratioOrdered By: Kayley Melendrez on 02-12-2025 Erythrocyte distribution width (RBC) [Ratio] 18.3 % High 11.6-14.6 [facility] Erythrocyte distribution wid th standard deviationOrdered By: Kayley Melendrez on 02-12-2025 Erythrocyte distribution width (RBC) [Ratio] 59.4 fl High 35.1-43.9 [facility] Glomerular filtration rate ( GFR) estimation/1.73 sq m using serum, plasma, or whole bOrdered By: Kayley Melendrez on 02-12-2025 GFR/1.73 sq M.predicted among non-blacks MDRD (S/P/Bld) [Vol rate/Area] 16 mL/min/{1.73_m2} Low >60 [facility] Comment on above: mL/min/1.73m2 CKD-EP I Creatinine Equation (2020) Hematocrit Auto (Bld) [Volum e fraction]Ordered By: Kayley Melendrez on 02-12-2025 Hematocrit (Bld) [Volume fraction] 24.6 % Low 40-54 [facility] Hemoglobin measurementOrdere d By: Kayley Melendrez on 02-12-2025 Hemoglobin (Bld) [Mass/Vol] 8.0 g/dL Low 13.0-16.5 [facility] Immature granulocytes/100 WB C Auto (Bld)Ordered By: Kayley Melendrez on 02-12-2025 Immature granulocytes/100 WBC (Bld) 0.500 % 0.0-0.9 [facility] Comment on above: IG% - Immature Granu locytes (promyelocytes, myelocytes and metamyelocytes) > 1% indicates that a LEFT SHIFT is Present. International normalized rat io (INR) calculationOrdered By: Kayley Melendrez on 02-12-2025 INR Coag (Bld) [Relative time] 1.5 {INR} [facility] - Chemistry and C hemistry - challengeOrdered By: Kayley Melendrez on 02-12-2025 AST [Catalytic activity/Vol] 34 U/L <38 [facility] MCV (mean corpuscular volume ) determinationOrdered By: Kayley Melendrez on 02-12-2025 MCV (RBC) [Entitic vol] 90.1 fL 80-94 [facility] Mean corpuscular hemoglobin (MCH) determinationOrdered By: Kayley Melendrez on 02-12-2025 MCH (RBC) [Entitic mass] 29.3 pg 27.0-32.0 [facility] Mean corpuscular hemoglobin concentration (MCHC) determinationOrdered By: Kayley Melendrez on 02-12-2025 MCHC (RBC) [Mass/Vol] 32.5 g/dL 32-36 [facility] Mean platelet volume determi nationOrdered By: Kayley Melendrez on 02-12-2025 Platelet mean volume (Bld) [Entitic vol] 9.2 fL 6.2-12.0 [facility] Monocyte percentageOrdered B y: Kayley Melendrez on 02-12-2025 Monocytes/100 WBC (Bld) 11.9 % High 0-10 [facility] Neutrophil percentageOrdered By: Kayley Melendrez on 02-12-2025 Neutrophils/100 WBC (Bld) 64.1 % 47-70 [facility] Nucleated red blood cell per centageOrdered By: Kayley Melendrez on 02-12-2025 Nucleated RBC/100 WBC (Bld) [Ratio] 0 % 0-5 [facility] Platelet countOrdered By: Carmen Melendrez on 02-12-2025 Platelets (Bld) [#/Vol] 294 10*3/uL 150-450 [facility] Potassium measurement (mass/ volume)Ordered By: Kayley Melendrez on 02-12-2025 Potassium (Unsp spec) [Mass/Vol] 3.2 mmol/L Low 3.3-5.1 [facility] Prothrombin Time w/INRon INR Coag (PPP) [Relative time] 1.5 {INR} Normal [facility] Comment on above: Performed By: #### L 300.3900, L100.0100, L500.4050 #### [facility] [address] [place], [address] PT Coag (PPP) [Time] 17.9 s High 11.7-14.9 [facility] Comment on above: Performed By: #### L 300.3900, L100.0100, L500.4050 #### [facility] [address] [place], [address] Prothrombin timeOrdered By: Kayley Melendrez on 02-12-2025 PT Coag (PPP) [Time] 17.9 s High 11.7-14.9 [facility] RBC Auto (Bld) [#/Vol]Ordere d By: Kayley Melendrez on 02-12-2025 RBC (Bld) [#/Vol] 2.73 10*6/uL Low 4.6-6.2 [facility] Serum creatinine measurement (mass/volume)Ordered By: Kayley Melendrez on 02-12-2025 Creatinine [Mass/Vol] 4.17 mg/dL High 0.70-1.20 [facility] Serum globulin measurementOr dered By: Kayley Melendrez on 02-12-2025 Globulin (S) [Mass/Vol] 4.2 g/dL 2.2-4.2 [facility] Serum glucose measurement (m ass/volume)Ordered By: Kayley Melendrez on 02-12-2025 Glucose [Mass/Vol] 77 mg/dL 70-99 [facility] Serum or plasma alanine mayorga otransferase (ALT) measurementOrdered By: Kayley Melendrez on 02-12-2025 ALT [Catalytic activity/Vol] 9 U/L <47 [facility] Serum or plasma albumin audrey urement (mass/volume)Ordered By: Kayley Melendrez on 02-12-2025 Albumin [Mass/Vol] 2.9 g/dL Low 3.5-5.0 [facility] Serum or plasma albumin/glob ulin mass ratioOrdered By: Kayley Melendrez on 02-12-2025 Albumin/Globulin [Mass ratio] 0.7 {ratio} Low 0.9-2.4 [facility] Serum or plasma alkaline jacob sphatase measurementOrdered By: Kayley Melendrez on 02-12-2025 ALP [Catalytic activity/Vol] 177 U/L High 40-129 [facility] Serum or plasma calcium audrey urement (mass/volume)Ordered By: Kayley Melendrez on 02-12-2025 Calcium [Mass/Vol] 9.9 mg/dL 7.6-11.0 [facility] Serum or plasma urea nitroge n measurement (mass/volume)Ordered By: Kayley Melendrez on 02-12-2025 Urea nitrogen [Mass/Vol] 43 mg/dL High 4-19 [facility] Sodium levelOrdered By: Omega Melendrez on 02-12-2025 Sodium [Moles/Vol] 131 mmol/L Low 133-145 [facility] Total proteinOrdered By: Lexis Melendrez on 02-12-2025 Protein [Mass/Vol] 7.1 g/dL 5.9-8.4 [facility] White blood cell (WBC) count Ordered By: Kayley Melendrez on 02-12-2025 WBC (Bld) [#/Vol] 7.3 10*3/uL 4.4-11.0 [facility] 36on 02-09-2025 36 Normal [facility] International normalized rat io (INR) measurement by fingerstickOrdered By: Kayley Melendrez on 02-08-2025 INR Coag (BldC) [Relative time] 2.3 [facility] Comment on above: Critical Value > 4.0 Protime w/INR Fingerstickon 02-08-2025 INR Coag (PPP) [Relative time] 2.3 {INR} Normal [facility] Comment on above: Result Comment: Crit ical Value > 4.0 Performed By: #### L 9200.0000 #### [facility] [address] [place], [address] Protime Coagsen 24.9 SEC High 11.7-14.9 [facility] Comment on above: Performed By: #### L 9200.0000 #### [facility] [address] [place], [place], [id number] Whole blood prothrombin time Ordered By: Kayley Melendrez on 02-08-2025 PT Coag (Bld) [Time] 24.9 s High 11.7-14.9 [facility] International normalized rat io (INR) calculationOrdered By: Jayesh Stubbs on 02-07-2025 INR Coag (Bld) [Relative time] 1.8 {INR} [facility] Prothrombin Time w/INRon INR Coag (PPP) [Relative time] 1.8 {INR} Normal [facility] Comment on above: Order Comment: 413-2 Performed By: #### L 300.3900 #### [facility] [address] [place], [place], [id number] PT Coag (PPP) [Time] 21.1 s High 11.7-14.9 [facility] Comment on above: Order Comment: 413-2 Performed By: #### L 300.0903 #### [facility] [place], [address] Prothrombin timeOrdered By: Jayesh Stubbs on 02-07-2025 PT Coag (PPP) [Time] 21.1 s High 11.7-14.9 [facility] Absolute lymphocyte countOrd ered By: Kayley Melendrez on 02-05-2025 Lymphocytes Auto (Unsp spec) [#/Vol] 1.77 10*3/uL 0.83-4.51 [facility] Absolute neutrophil countOrd ered By: Kayley Melendrez on 02-05-2025 Neutrophils (Bld) [#/Vol] 4.6 10*3/uL 2.0-7.7 [facility] Anion gap in Serum or Plasma Ordered By: Kayley Melendrez on 02-05-2025 Anion gap [Moles/Vol] 18 mmol/L High 5-15 [facility] Automated lymphocyte count a s percentage of total leukocytesOrdered By: Kayley Melendrez on 02-05-2025 Lymphocytes/100 WBC Auto (Unsp spec) 22.0 % 19-41 [facility] BUN/creatinine ratioOrdered By: Kayley Melendrez on 02-05-2025 Urea nitrogen/Creatinine [Mass ratio] 4.1 mg/mg Low 10-20 [facility] Basophil percentageOrdered B y: Kayley Melendrez on 02-05-2025 Basophils/100 WBC (Bld) 1.0 % 0-1 [facility] Bilirubin, totalOrdered By: Kayley Melendrez on 02-05-2025 Bilirubin [Mass/Vol] 0.81 mg/dL 0.00-1.30 [facility] CBC W/Diff, Automatedon 01-25 Absolute Lymph 1.77 X10 3/uL Normal 0.83-4.51 [facility] Comment on above: Order Comment: 413-2 Performed By: #### L 100.0100, L300.3900, L500.4050 #### [facility] [address] [place], [address] Absolute Neut 4.6 X10 3/uL Normal 2.0-7.7 [facility] Comment on above: Order Comment: 413-2 Performed By: #### L 100.0100, L300.3900, L500.4050 #### [facility] [address] [place], [address] Basophils/100 WBC (Bld) 1.0 % Normal 0-1 [facility] Comment on above: Order Comment: 413-2 Performed By: #### L 100.0100, L300.3900, L500.4050 #### [facility] [address] [place], [address] Eosinophils/100 WBC (Bld) 4.1 % Normal 0-5 [facility] Comment on above: Order Comment: 413-2 Performed By: #### L 100.0100, L300.3900, L500.4050 #### [facility] [address] [place], [address] Erythrocyte distribution width (RBC) [Ratio] 18.8 % High 11.6-14.6 [facility] Comment on above: Order Comment: 413-2 Performed By: #### L 100.0100, L300.3900, L500.4050 #### [facility] [address] [place], [address] Hematocrit (Bld) [Volume fraction] 28.1 % Low 40-54 [facility] Comment on above: Order Comment: 413-2 Performed By: #### L 100.0100, L300.3900, L500.4050 #### [facility] [address] [place], [address] Hemoglobin (Bld) [Mass/Vol] 8.8 g/dL Low 13.0-16.5 [facility] Comment on above: Order Comment: 413-2 Performed By: #### L 100.0100, L300.3900, L500.4050 #### [facility] [address] [place], [address] IG% 0.600 Normal 0.0-0.9 [facility] Comment on above: Order Comment: 413-2 Result Comment: IG% - Immature Granulocytes (promyelocytes, myelocytes and metamyelocytes) > 1% indicates that a LEFT SHIFT is Present. Performed By: #### L 100.0100, L300.3900, L500.4050 #### [facility] [address] [place], [address] Lymphocytes/100 WBC (Bld) 22.0 % Normal 19-41 [facility] Comment on above: Order Comment: 413-2 Performed By: #### L 100.0100, L300.3900, L500.4050 #### [facility] [address] [place], [address] MCH (RBC) [Entitic mass] 29.0 pg Normal 27.0-32.0 [facility] Comment on above: Order Comment: 413-2 Performed By: #### L 100.0100, L300.3900, L500.4050 #### [facility] [address] [place], [address] MCHC (RBC) [Mass/Vol] 31.3 g/dL Low 32-36 [facility] Comment on above: Order Comment: 413-2 Performed By: #### L 100.0100, L300.3900, L500.4050 #### [facility] [address] [place], [address] MCV (RBC) [Entitic vol] 92.7 fL Normal 80-94 [facility] Comment on above: Order Comment: 413-2 Performed By: #### L 100.0100, L300.3900, L500.4050 #### [facility] [address] [place], [address] Monocytes/100 WBC (Bld) 15.6 % High 0-10 [facility] Comment on above: Order Comment: 413-2 Performed By: #### L 100.0100, L300.3900, L500.4050 #### [facility] [address] [place], [address] Neutrophils/100 WBC (Bld) 56.7 % Normal 47-70 [facility] Comment on above: Order Comment: 413-2 Performed By: #### L 100.0100, L300.3900, L500.4050 #### [facility] [address] [place], [address] Nucleated RBC (Bld) [#/Vol] 0 10*3/uL Normal 0-5 [facility] Comment on above: Order Comment: 413-2 Performed By: #### L 100.0100, L300.3900, L500.4050 #### [facility] [address] [place], [address] Platelet mean volume (Bld) [Entitic vol] 9.2 fL Normal 6.2-12.0 [facility] Comment on above: Order Comment: 413-2 Performed By: #### L 100.0100, L300.3900, L500.4050 #### [facility] [address] [place], [address] Platelets (Bld) [#/Vol] 358 10*3/uL Normal 150-450 [facility] Comment on above: Order Comment: 413-2 Performed By: #### L 100.0100, L300.3900, L500.4050 #### [facility] [address] [place], [address] RBC (Bld) [#/Vol] 3.03 10*6/uL Low 4.6-6.2 [facility] Comment on above: Order Comment: 413-2 Performed By: #### L 100.0100, L300.3900, L500.4050 #### [facility] [address] [place], [address] RDW SD 63.1 fl High 35.1-43.9 [facility] Comment on above: Order Comment: 413-2 Performed By: #### L 100.0100, L300.3900, L500.4050 #### [facility] [address] [place], [address] WBC (Bld) [#/Vol] 8.1 10*3/uL Normal 4.4-11.0 [facility] Comment on above: Order Comment: 413-2 Performed By: #### L 100.0100, L300.3900, L500.4050 #### [facility] [address] [place], [address] Carbon dioxide, total [Moles /volume] in Central venous bloodOrdered By: Kayley Melendrez on 02-05-2025 CO2 [Moles/Vol] 25.9 mmol/L 21.0-32.0 [facility] Chloride assayOrdered By: Carmen Melendrez on 02-05-2025 Chloride [Moles/Vol] 93 mmol/L Low 98-108 [facility] Comprehensive Metabolic Prof ilon 02-05-2025 Albumin [Mass/Vol] 3.1 g/dL Low 3.5-5.0 [facility] Comment on above: Order Comment: 413-2 Performed By: #### L 100.0100, L300.3900, L500.4050 #### [facility] [address] [place], [address] Albumin/Globulin [Mass ratio] 0.7 {ratio} Low 0.9-2.4 [facility] Comment on above: Order Comment: 413-2 Performed By: #### L 100.0100, L300.3900, L500.4050 #### [facility] [address] [place], [address] ALK PHOS 260 U/L High 40-129 [facility] Comment on above: Order Comment: 413-2 Performed By: #### L 100.0100, L300.3900, L500.4050 #### [facility] [address] [place], [address] ALT [Catalytic activity/Vol] 11 U/L Normal <=46 [facility] Comment on above: Order Comment: 413-2 Performed By: #### L 100.0100, L300.3900, L500.4050 #### [facility] [address] [place], [address] AST [Catalytic activity/Vol] 42 U/L High <=37 [facility] Comment on above: Order Comment: 413-2 Performed By: #### L 100.0100, L300.3900, L500.4050 #### [facility] [address] [place], [address] Bilirubin [Mass/Vol] 0.81 mg/dL Normal 0.00-1.30 [facility] Comment on above: Order Comment: 413-2 Performed By: #### L 100.0100, L300.3900, L500.4050 #### [facility] [address] [place], [address] BUN/CRE 4.1 RATIO Low 10-20 [facility] Comment on above: Order Comment: 413-2 Performed By: #### L 100.0100, L300.3900, L500.4050 #### [facility] [address] [place], [address] Calcium [Mass/Vol] 10.0 mg/dL Normal 7.6-11.0 [facility] Comment on above: Order Comment: 413-2 Performed By: #### L 100.0100, L300.3900, L500.4050 #### [facility] [address] [place], [address] Chloride [Moles/Vol] 93 mmol/L Low 98-108 [facility] Comment on above: Order Comment: 413-2 Performed By: #### L 100.0100, L300.3900, L500.4050 #### [facility] [address] [place], [address] CO2 [Moles/Vol] 25.9 mmol/L Normal 21.0-32.0 [facility] Comment on above: Order Comment: 413-2 Performed By: #### L 100.0100, L300.3900, L500.4050 #### [facility] [address] [place], [address] Creatinine [Mass/Vol] 5.27 mg/dL High 0.70-1.20 [facility] Comment on above: Order Comment: 413-2 Performed By: #### L 100.0100, L300.3900, L500.4050 #### [facility] [address] [place], [address] GAP 18 High 5-15 [facility] Comment on above: Order Comment: 413-2 Performed By: #### L 100.0100, L300.3900, L500.4050 #### [facility] [address] [place], [address] GFR/1.73 sq M.predicted among non-blacks MDRD (S/P/Bld) [Vol rate/Area] 12 mL/min/{1.73_m2} Low >60 [facility] Comment on above: Order Comment: 413-2 Result Comment: mL/m in/1.73m2 CKD-EPI Creatinine Equation (2020) Performed By: #### L 100.0100, L300.3900, L500.4050 #### [facility] [address] [place], [address] Globulin (S) [Mass/Vol] 4.3 g/dL High 2.2-4.[address] [facility] Comment on above: Order Comment: 413-2 Performed By: #### L 100.0100, L300.3900, L500.4050 #### [facility] [address] [place], [address] Glucose [Mass/Vol] 65 mg/dL Low 70-99 [facility] Comment on above: Order Comment: 413-2 Performed By: #### L 100.0100, L300.3900, L500.4050 #### [facility] [address] [place], [address] Potassium [Moles/Vol] 4.5 mmol/L Normal 3.3-5.1 [facility] Comment on above: Order Comment: 413-2 Performed By: #### L 100.0100, L300.3900, L500.4050 #### [facility] [address] [place], [address] Sodium [Moles/Vol] 136 mmol/L Normal 133-145 [facility] Comment on above: Order Comment: 413-2 Performed By: #### L 100.0100, L300.3900, L500.4050 #### [facility] [address] [place], [address] T PROT 7.4 g/dL Normal 5.9-8.4 [facility] Comment on above: Order Comment: 413-2 Performed By: #### L 100.0100, L300.3900, L500.4050 #### [facility] [address] [place], [address] Urea nitrogen [Mass/Vol] 22 mg/dL High 4-19 [facility] Comment on above: Order Comment: 413-2 Performed By: #### L 100.0100, L300.3900, L500.4050 #### [facility] [address] [place], [address] Eosinophil percentageOrdered By: Kayley Melendrez on 02-05-2025 Eosinophils/100 WBC (Bld) 4.1 % 0-5 [facility] Erythrocyte distribution wid th ratioOrdered By: Kayley Melendrez on 02-05-2025 Erythrocyte distribution width (RBC) [Ratio] 18.8 % High 11.6-14.6 [facility] Erythrocyte distribution wid th standard deviationOrdered By: Kayley Melendrez on 02-05-2025 Erythrocyte distribution width (RBC) [Ratio] 63.1 fl High 35.1-43.9 [facility] Glomerular filtration rate ( GFR) estimation/1.73 sq m using serum, plasma, or whole bOrdered By: Kayley Melendrez on 02-05-2025 GFR/1.73 sq M.predicted among non-blacks MDRD (S/P/Bld) [Vol rate/Area] 12 mL/min/{1.73_m2} Low >60 [facility] Comment on above: mL/min/1.73m2 CKD-EP I Creatinine Equation (2020) Hematocrit Auto (Bld) [Volum e fraction]Ordered By: Kayley Melendrez on 02-05-2025 Hematocrit (Bld) [Volume fraction] 28.1 % Low 40-54 [facility] Hemoglobin measurementOrdere d By: Kayley Melendrez on 02-05-2025 Hemoglobin (Bld) [Mass/Vol] 8.8 g/dL Low 13.0-16.5 [facility] Immature granulocytes/100 WB C Auto (Bld)Ordered By: Kayley Melendrez on 02-05-2025 Immature granulocytes/100 WBC (Bld) 0.600 % 0.0-0.9 [facility] Comment on above: IG% - Immature Granu locytes (promyelocytes, myelocytes and metamyelocytes) > 1% indicates that a LEFT SHIFT is Present. Laboratory - Chemistry and C hemistry - challengeOrdered By: Kayley Melendrez on 02-05-2025 AST [Catalytic activity/Vol] 42 U/L High <38 [facility] MCV (mean corpuscular volume ) determinationOrdered By: Kayley Melendrez on 02-05-2025 MCV (RBC) [Entitic vol] 92.7 fL 80-94 [facility] Mean corpuscular hemoglobin (MCH) determinationOrdered By: Kayley Melendrez on 02-05-2025 MCH (RBC) [Entitic mass] 29.0 pg 27.0-32.0 [facility] Mean corpuscular hemoglobin concentration (MCHC) determinationOrdered By: Kayley Melendrez on 02-05-2025 MCHC (RBC) [Mass/Vol] 31.3 g/dL Low 32-36 [facility] Mean platelet volume determi nationOrdered By: Kayley Melendrez on 02-05-2025 Platelet mean volume (Bld) [Entitic vol] 9.2 fL 6.2-12.0 [facility] Monocyte percentageOrdered B y: Kayley Melendrez on 02-05-2025 Monocytes/100 WBC (Bld) 15.6 % High 0-10 [facility] Neutrophil percentageOrdered By: Kayley Melendrez on 02-05-2025 Neutrophils/100 WBC (Bld) 56.7 % 47-70 [facility] Nucleated red blood cell per centageOrdered By: Kayley Melendrez on 02-05-2025 Nucleated RBC/100 WBC (Bld) [Ratio] 0 % 0-5 [facility] Platelet countOrdered By: Carmen Melendrez on 02-05-2025 Platelets (Bld) [#/Vol] 358 10*3/uL 150-450 [facility] Potassium measurement (mass/ volume)Ordered By: Kayley Melendrez on 02-05-2025 Potassium (Unsp spec) [Mass/Vol] 4.5 mmol/L 3.3-5.1 [facility] RBC Auto (Bld) [#/Vol]Ordere d By: Kayley Melendrez on 02-05-2025 RBC (Bld) [#/Vol] 3.03 10*6/uL Low 4.6-6.2 [facility] Serum creatinine measurement (mass/volume)Ordered By: Kayley Melendrez on 02-05-2025 Creatinine [Mass/Vol] 5.27 mg/dL High 0.70-1.20 [facility] Serum globulin measurementOr dered By: Kayley Melendrez on 02-05-2025 Globulin (S) [Mass/Vol] 4.3 g/dL High 2.2-4.2 [facility] Serum glucose measurement (m ass/volume)Ordered By: Kayley Melendrez on 02-05-2025 Glucose [Mass/Vol] 65 mg/dL Low 70-99 [facility] Serum or plasma alanine mayorga otransferase (ALT) measurementOrdered By: Kayley Melendrez on 02-05-2025 ALT [Catalytic activity/Vol] 11 U/L <47 [facility] Serum or plasma albumin audrey urement (mass/volume)Ordered By: Kayley Melendrez on 02-05-2025 Albumin [Mass/Vol] 3.1 g/dL Low 3.5-5.0 [facility] Serum or plasma albumin/glob ulin mass ratioOrdered By: Kayley Melendrez on 02-05-2025 Albumin/Globulin [Mass ratio] 0.7 {ratio} Low 0.9-2.4 [facility] Serum or plasma alkaline jacob sphatase measurementOrdered By: Kayley Melendrez on 02-05-2025 ALP [Catalytic activity/Vol] 260 U/L High 40-129 [facility] Serum or plasma calcium audrey urement (mass/volume)Ordered By: Kayley Melendrez on 02-05-2025 Calcium [Mass/Vol] 10.0 mg/dL 7.6-11.0 [facility] Serum or plasma urea nitroge n measurement (mass/volume)Ordered By: Kayley Melendrez on 02-05-2025 Urea nitrogen [Mass/Vol] 22 mg/dL High 4-19 [facility] Sodium levelOrdered By: Omega Melendrez on 02-05-2025 Sodium [Moles/Vol] 136 mmol/L 133-145 [facility] Total proteinOrdered By: Lexis Melendrez on 02-05-2025 Protein [Mass/Vol] 7.4 g/dL 5.9-8.4 [facility] White blood cell (WBC) count Ordered By: Kayley Dawsonmatt on 02-05-2025 WBC (Bld) [#/Vol] 8.1 10*3/uL 4.4-11.0 [facility] 36on 02-02-2025 36 Normal [facility] 36 [phone], spoke to nurse Delilah to verify orders, follow up appointment and tunneled line removal. [facility] Progress Noteon 02-02-2025 Progress Note Normal [facility] Progress Note [facility] on 02/01/25. Updated tracker with hospital doses. Warfarin dosing instructions: 0.5 mg per day. New interacting meds: N/a Next SAILAJA appt: post SNF Normal [facility] Progress Note Patient is still at [facility] ([phone]). I left a message for ELIA Anderson, regarding discharge plans. [facility] [id number] 02-01-2025 [id number] created in [facility] per TCC request. Facility notified via [facility]. [facility] [phone] Normal [facility] CBC (HEMOGRAM)on 02-01-2025 Erythrocyte distribution width (RBC) [Ratio] 18.8 % High 11.5-15.0 [facility] Comment on above: Performed By: #### L [id number] ####Specialized Language Instructor: DOMENICA JARA ([id number])[facility] ([address] Hematocrit (Bld) [Volume fraction] 28.3 % Low 40.0-52.0 [facility] Comment on above: Performed By: #### L AB294 ####Specialized Language Instructor: DOMENICA JARA ([id number])[facility] ([facility])[address] [place] [address] Hemoglobin (Bld) [Mass/Vol] 8.9 g/dL Low 13.0-18.0 [facility] Comment on above: Performed By: #### L AB294 ####Specialized Language Instructor: DOMENICA JARA ([id number])[facility] ([facility])[address] [place] [address] MCH (RBC) [Entitic mass] 28.2 pg Normal 26.0-34.0 [facility] Comment on above: Performed By: #### L AB294 ####Specialized Language Instructor: DOMENICA JARA ([id number])[facility])[address] [place] [address] MCHC 31.4 % Normal 30.5-36.0 [facility] Comment on above: Performed By: #### L AB294 ####Specialized Language Instructor: DOMENICA JARA ([id number])[facility] ([facility])[address] [place] [address] MCV (RBC) [Entitic vol] 89.6 fL Normal 77.0-99.0 [facility] Comment on above: Performed By: #### L AB294 ####Specialized Language Instructor: DOMENICA JARA ([id number])[facility])[address] [place] [address] Platelet mean volume (Bld) [Entitic vol] 9.0 fL Normal 9.0-12.7 [facility] Comment on above: Performed By: #### L AB294 ####Specialized Language Instructor: DOMENICA JARA ([id number])[facility])[address] [place] [address] Platelets (Bld) [#/Vol] 282 10*3/uL Normal 140-440 [facility] Comment on above: Performed By: #### L AB294 ####Specialized Language Instructor: DOMENICA JARA ([id number])[facility] ([facility])[address] [place] [address] RBC (Bld) [#/Vol] 3.16 10*6/uL Low 4.40-5.90 [facility] Comment on above: Performed By: #### L AB294 ####Specialized Language Instructor: DOMENICA JARA ([id number])[facility] ([facility])[address] [place] [address] WBC (Bld) [#/Vol] 7.9 10*3/uL Normal 3.6-10.7 [facility] Comment on above: Performed By: #### L AB294 ####Specialized Language Instructor: DOMENICA JARA ([id number])[facility] ([facility])[address] [place] [address] CBC panel Auto (Bld)on 02-01 Erythrocyte distribution width (RBC) [Ratio] 18.8 % High 11.5 - 15.0 % [facility] Hematocrit (Bld) [Volume fraction] 28.3 % Low 40.0 - 52.0 % [facility] Hemoglobin (Bld) [Mass/Vol] 8.9 g/dL Low 13.0 - 18.0 g/dL [facility] Interpretation and review of laboratory results Abnormal [facility] MCH (RBC) [Entitic mass] 28.2 pg 26. 0 - 34.0 pg [facility] MCHC (RBC) [Mass/Vol] 31.4 % 30.5 - 36.0 % [facility] MCV (RBC) [Entitic vol] 89.6 fL 77.0 - 99.0 fL [facility] Platelet mean volume (Bld) [Entitic vol] 9 fL 9.0 - 12.7 fL [facility] Platelets (Bld) [#/Vol] 282 10*3/uL 140 - 440 10*3/uL [facility] RBC (Bld) [#/Vol] 3.16 10*6/uL Low 4.40 - 5.9 0 10*6/uL [facility] WBC (Bld) [#/Vol] 7.9 10*3/uL 3.6 - 10.7 10*3/uL [facility] COMPREHENSIVE METABOLIC PANE Victor M 02-01-2025 Albumin [Mass/Vol] 2.1 g/dL Low 3.5-5.0 [facility] Comment on above: Performed By: #### L ABAruna, LAB17, [id number] ####Specialized Language Instructor: DOMENICA JARA ([id number])[facility] ([facility])[address] [place] [address] ALP [Catalytic activity/Vol] 226 U/L High 40-150 [facility] Comment on above: Performed By: #### Tameka ABAruna, LAB17, [id number] ####Specialized Language Instructor: DOMENICA JARA ([id number])[facility] ([facility])[address] [place] [address] ALT [Catalytic activity/Vol] 10 U/L Normal <40 [facility] Comment on above: Performed By: #### Tameka ABAruna, LAB17, [id number] ####Specialized Language Instructor: DOMENICA JARA ([id number])[facility] ([facility])[address] [place] [address] Anion gap [Moles/Vol] 11 mmol/L Normal 3-13 [facility] Comment on above: Performed By: #### Tameka GIMENEZ, LAB17, [id number] ####Specialized Language Instructor: DOMENICA JARA ([id number])[facility] ([facility])[address] [place] [address] AST [Catalytic activity/Vol] 32 U/L Normal <34 [facility] Comment on above: Performed By: #### Tameka GIMENEZ, LAB17, [id number] ####Specialized Language Instructor: DOMENICA JARA ([id number])[facility] ([facility])[address] [place] [address] Bilirubin [Mass/Vol] 0.9 mg/dL Normal <1.2 [facility] Comment on above: Performed By: #### Tameka ABAruna, LAB17, [id number] ####Specialized Language Instructor: DOMENICA JARA ([id number])[facility])[address] [place] [address] Calcium [Mass/Vol] 9.7 mg/dL Normal 8.4-10.2 [facility] Comment on above: Performed By: #### L AB113, LAB17, [id number] ####Specialized Language Instructor: DOMENICA JARA ([id number])[facility] [place] [address] [place] Chloride [Moles/Vol] 99 mmol/L Normal 98-107 [facility] Comment on above: Performed By: #### L AB113, LAB17, [id number] ####Specialized Language Instructor: DOMENICA JARA ([id number])[facility])[address] [place] [address] CO2 [Moles/Vol] 26 mmol/L Normal 22-29 [facility] Comment on above: Performed By: #### Tameka AB113, LAB17, [id number] ####Specialized Language Instructor: DOMENICA JARA ([id number])[facility] ([facility])[address] [place] [address] Creatinine [Mass/Vol] 2.39 mg/dL High 0.72-1.25 [facility] Comment on above: Performed By: #### Tameka AB113, LAB17, [id number] ####Specialized Language Instructor: DOMENICA JARA ([id number])[facility] ([facility])[address] [place] [address] GLOMERULAR FILTRATION RATE ML/MIN/1.73 SQ M.PREDICTED 30.5 mL/min/1.73m*2 Low >60.0 [facility] Comment on above: Result Comment: Calc ulation based on the Chronic Kidney Disease Epidemiology Collaboration (CKD-EPI) equation refit without adjustment for race Performed By: #### L AB113, LAB17, [id number] ####Specialized Language Instructor: DOMENICA JARA ([id number])[facility] [place] [address] [place] Glucose [Mass/Vol] 87 mg/dL Normal 74-100 [facility] Comment on above: Performed By: #### L AB113, LAB17, CGE131 ####Specialized Language Instructor: DOMENICA JARA ([id number])[facility] ([facility])[address] [place] [address] [place] Potassium [Moles/Vol] 3.7 mmol/L Normal 3.5-5.1 [facility] Comment on above: Result Comment: [facility] potassium values may be up to 0.5 mmol/L lower than serum values. Performed By: #### Tameka AB113, LAB17, [id number] ####Specialized Language Instructor: DOMENICA JARA ([id number])[facility] ([facility])[address] [place] [address] Protein [Mass/Vol] 7.4 g/dL Normal 6.4-8.3 [facility] Comment on above: Performed By: #### Tameka ABAruna, LAB17, [id number] ####Specialized Language Instructor: DOMENICA JARA ([id number])[facility])[address] [place] [address] Sodium [Moles/Vol] 136 mmol/L Normal 136-145 [facility] Comment on above: Performed By: #### Tameka GIMENEZ, LAB17, [id number] ####Specialized Language Instructor: DOMENICA JARA ([id number])[facility] ([facility])[address] [place] [address] Urea nitrogen [Mass/Vol] 7 mg/dL Low 9-23 [facility] Comment on above: Performed By: #### Tameka GIMENEZ, LAB17, [id number] ####Specialized Language Instructor: DOMENICA JARA ([id number])[facility])[address] [place] [address] Comprehensive metabolic 1998 panelon 02-01-2025 Albumin [Mass/Vol] 2.1 g/dL Low 3.5 - 5.0 g/dL [facility] ALP [Catalytic activity/Vol] 226 U/L High 40 - 150 U/L [facility] ALT [Catalytic activity/Vol] 10 U/L NINF - 40 U/L [facility] Anion gap [Moles/Vol] 11 mmol/L 3 - 13 mmol/L [facility] AST [Catalytic activity/Vol] 32 U/L NINF - 34 U/L [facility] Bilirubin [Mass/Vol] 0.9 mg/dL NINF - 1.2 mg/dL [facility] Calcium [Mass/Vol] 9.7 mg/dL 8.4 - 10. 2 mg/dL [facility] Chloride [Moles/Vol] 99 mmol/L 98 - 10 7 mmol/L [facility] CO2 [Moles/Vol] 26 mmol/L 22 - 29 mmol/L [facility] Creatinine [Mass/Vol] 2.39 mg/dL High 0.72 - 1.25 mg/dL [facility] GFR/1.73 sq M.predicted (S/P/Bld) [Vol rate/Area] 30.5 mL/min Low - PINF [facility] Glucose [Mass/Vol] 87 mg/dL 74 - 100 mg/dL [facility] Interpretation and review of laboratory results Abnormal [facility] Potassium [Moles/Vol] 3.7 mmol/L 3.5 - 5.1 mmol/L [facility] Protein [Mass/Vol] 7.4 g/dL 6.4 - 8.3 g/dL [facility] Sodium [Moles/Vol] 136 mmol/L 136 - 145 mmol/L [facility] Urea nitrogen [Mass/Vol] 7 mg/dL Low 9 - 23 mg/d L [facility] HEMOGLOBIN AND HEMATOCRIT, B LOODon 02-01-2025 Hematocrit (Bld) [Volume fraction] 28.8 % Low 40.0-52.0 [facility] Comment on above: Performed By: #### L AB753 ####Specialized Language Instructor: DOMENICA JARA ([id number])[address] Hemoglobin (Bld) [Mass/Vol] 8.9 g/dL Low 13.0-18.0 [facility] Comment on above: Performed By: #### L AB753 ####Specialized Language Instructor: DOMENICA JARA ([id number])[address] Hemoglobin (Bld) [Mass/Vol]O rdered By: Rosa Juares on 02-01-2025 Hematocrit (Bld) [Volume fraction] 28.8 % Low 40.0 - 52.0 % [facility] Interpretation and review of laboratory results Abnormal [facility] Laboratory - Chemistry and C hemistry - challengeon 02-01-2025 Magnesium [Mass/Vol] 1.9 mg/dL 1.6 - 2 .6 mg/dL [facility] Laboratory - Coagulationon 0 02-01-2025 PT Coag (Bld) [Time] 20.3 s High 9.0 - 12.0 s [facility] Laboratory - Hematology and Cell countsOrdered By: Rosa Juares on 02-01-2025 Hemoglobin (Bld) [Mass/Vol] 8.9 g/dL Low 13.0 - 18.0 g/dL [facility] MAGNESIUMon 02-01-2025 Magnesium [Mass/Vol] 1.9 mg/dL Normal 1.6-2.6 [facility] Comment on above: Result Comment: ORDE R COMMENTS:Higher values can be expected in females during menses. Performed By: #### L AB113, LAB17, [id number] ####Specialized Language Instructor: DOMENICA JARA ([id number])[facility] ([facility])[address] [place] [address] Magnesium [Mass/Vol]on 02-01 [facility] No Panel Informationon 02-01 Interpretation and review of laboratory results Normal [facility] Nursing Noteon 02-01-2025 Nursing Note Transport here to take patient to [facility]. Wound Vac tubing clamped and disconnected from wound vac. Facility will determine if tubing is compatible with their wound vacs. Normal [facility] PHOSPHORUSon 02-01-2025 Phosphate [Mass/Vol] 3.4 mg/dL Normal 2.3-4.7 [facility] Comment on above: Performed By: #### L AB113, LAB17, [id number] ####Specialized Language Instructor: DOMENICA JARA ([id number])[facility] [place] [address] PROTHROMBIN TIMEon INR Coag (PPP) [Relative time] 2.0 {INR} High 0.9-1.1 [facility] Comment on above: Result Comment: Vaughn mmended [...] Myocardial Infarction Performed By: #### L AB320 ####Specialized Language Instructor: DOMENICA JARA ([id number])[facility] [place] [address] PT Coag (PPP) [Time] 20.3 s High 9.0-12.0 [facility] Comment on above: Performed By: #### L AB320 ####Specialized Language Instructor: DOMENICA JARA ([id number])[facility] ([facility])[address] [place] [address] PT Coag (Bld) [Time]on 02-01 INR Coag (PPP) [Relative time] 2 {INR} High 0.9 - 1.1 [facility] Interpretation and review of laboratory results Abnormal [facility] Phosphate [Moles/Vol]on Phosphate [Mass/Vol] 3.4 mg/dL 2.3 - 4 .7 mg/dL [facility] Progress Noteon 02-01-2025 Progress [facility] Progress [facility] Progress Note Normal [facility] Progress Note [facility] Progress [facility] Progress Note Normal [facility] 30on 01-31-2025 30 Normal [facility] 30 Normal [facility] [id number] 01-31-2025 [id number] Updates placed to [facility] via [facility] per [facility] request. Await review and response regarding ability to accept. TCC notified. Electronically signed by NELSON Rodrigues Normal [facility] CBC (HEMOGRAM)on 01-31-2025 Erythrocyte distribution width (RBC) [Ratio] 19.2 % High 11.5-15.0 [facility] Comment on above: Performed By: #### L AB294 ####Specialized Language Instructor: DOMENICA JARA ([id number])[facility] ([facility])[address] [place] [address] Hematocrit (Bld) [Volume fraction] 27.9 % Low 40.0-52.0 [facility] [place] Comment on above: Performed By: #### L AB294 ####Specialized Language Instructor: DOMENICA JARA ([id number])[facility])[address] [place] [address] Hemoglobin (Bld) [Mass/Vol] 8.8 g/dL Low 13.0-18.0 [facility] [place] Comment on above: Performed By: #### L AB294 ####Specialized Language Instructor: DOMENICA JARA ([id number])[facility])[address] [place] [address] MCH (RBC) [Entitic mass] 28.4 pg Normal 26.0-34.0 [facility] [place] Comment on above: Performed By: #### L AB294 ####Specialized Language Instructor: DOMENICA JARA ([id number])[facility])[address] [place] [address] MCHC 31.5 % Normal 30.5-36.0 [facility] [place] Comment on above: Performed By: #### L AB294 ####Specialized Language Instructor: DOMENICA JARA ([phone])[facility])[address] [place] [address] MCV (RBC) [Entitic vol] 90.0 fL Normal 77.0-99.0 S [facility] Comment on above: Performed By: #### L AB294 ####Specialized Language Instructor: DOMENICA JARA ([id number])[facility])[address] [place] [address] Platelet mean volume (Bld) [Entitic vol] 9.0 fL Normal 9.0-12.7 [facility] [place] Comment on above: Performed By: #### L AB294 ####Specialized Language Instructor: DOMENICA JARA ([id number])[facility])[address] [place] [address] Platelets (Bld) [#/Vol] 278 10*3/uL Normal 140-440 [facility] [place] Comment on above: Performed By: #### L AB294 ####Specialized Language Instructor: DOMENICA JARA ([id number])[address] RBC (Bld) [#/Vol] 3.10 10*6/uL Low 4.40-5.90 [facility] [place] Comment on above: Performed By: #### L AB294 ####Specialized Language Instructor: DOMENICA JARA ([id number])[facility])[address] [place] [address] WBC (Bld) [#/Vol] 9.3 10*3/uL Normal 3.6-10.7 [facility] [place] Comment on above: Performed By: #### L AB294 ####Specialized Language Instructor: DOMENICA JARA ([id number])[address] CBC panel Auto (Bld)on 01-31 Erythrocyte distribution width (RBC) [Ratio] 19.2 % High 11.5 - 15.0 % [facility] Hematocrit (Bld) [Volume fraction] 27.9 % Low 40.0 - 52.0 % [facility] Hemoglobin (Bld) [Mass/Vol] 8.8 g/dL Low 13.0 - 18.0 g/dL [facility] Interpretation and review of laboratory results Abnormal [facility] MCH (RBC) [Entitic mass] 28.4 pg 26. 0 - 34.0 pg [facility] MCHC (RBC) [Mass/Vol] 31.5 % 30.5 - 36.0 % [facility] MCV (RBC) [Entitic vol] 90 fL 77.0 - 99.0 fL [facility] R&V Platelet mean volume (Bld) [Entitic vol] 9 fL 9.0 - 12.7 fL [facility] Platelets (Bld) [#/Vol] 278 10*3/uL 140 - 440 10*3/uL [facility] RBC (Bld) [#/Vol] 3.1 10*6/uL Low 4.40 - 5.9 0 10*6/uL [facility] WBC (Bld) [#/Vol] 9.3 10*3/uL 3.6 - 10.7 10*3/uL [facility] METABOLIC PANE Victor M 01-31-2025 Albumin [Mass/Vol] 2.1 g/dL Low 3.5-5.0 [facility] Comment on above: Performed By: #### Tameka AB113, LAB17, [id number] ####Specialized Language Instructor: DOMENICA JARA ([phone])[facility] ([facility])[address] [place] [address] ALP [Catalytic activity/Vol] 218 U/L High 40-150 [facility] Comment on above: Performed By: #### Tameka GIMENEZ, LAB17, [id number] ####Specialized Language Instructor: DOMENICA JARA ([id number])[facility])[address] [place] [address] ALT [Catalytic activity/Vol] 11 U/L Normal <40 [facility] Comment on above: Performed By: #### Tameka GIMENEZ, LAB17, [id number] ####Specialized Language Instructor: DOMENICA JARA ([id number])[facility] ([facility])[address] [place] [address] Anion gap [Moles/Vol] 12 mmol/L Normal 3-13 [facility] Comment on above: Performed By: #### Tameka ABAruna, LAB17, [id number] ####Specialized Language Instructor: DOMENICA JARA ([id number])[facility] ([facility])[address] [place] [address] AST [Catalytic activity/Vol] 31 U/L Normal <34 [facility] Comment on above: Performed By: #### Tameka ABAruna, LAB17, [id number] ####Specialized Language Instructor: DOMENICA JARA ([id number])[facility] ([facility])[address] [place] [address] Bilirubin [Mass/Vol] 0.8 mg/dL Normal <1.2 [facility] Comment on above: Performed By: #### Tameka ABAruna, LAB17, [id number] ####Specialized Language Instructor: DOMENICA JARA ([id number])[facility] ([facility])[address] [place] [address] [place] Calcium [Mass/Vol] 10.0 mg/dL Normal 8.4-10.2 [facility] [place] Comment on above: Performed By: #### Tameka ABAruna, LAB17, [id number] ####Specialized Language Instructor: DOMENICA JARA ([id number])[facility] ([facility])[address] [place] [address] [place] Chloride [Moles/Vol] 99 mmol/L Normal 98-107 [facility] Comment on above: Performed By: #### Tameka ABAruna, LAB17, [id number] ####Specialized Language Instructor: DOMENICA JARA ([id number])[facility] ([facility])[address] [place] [address] CO2 [Moles/Vol] 27 mmol/L Normal 22-29 [facility] Comment on above: Performed By: #### Tameka GIMENEZ, LAB17, [id number] ####Specialized Language Instructor: DOMENICA JARA ([id number])[facility] ([facility])[address] [place] [address] Creatinine [Mass/Vol] 3.64 mg/dL High 0.72-1.25 [facility] Comment on above: Performed By: #### Tameka GIMENEZ, LAB17, [id number] ####Specialized Language Instructor: DOMENICA JARA ([phone])[facility] ([facility])[address] [place] [address] [place] GLOMERULAR FILTRATION RATE ML/MIN/1.73 SQ M.PREDICTED 18.4 mL/min/1.73m*2 Low >60.0 [facility] [place] Comment on above: Result Comment: Calc ulation based on the Chronic Kidney Disease Epidemiology Collaboration (CKD-EPI) equation refit without adjustment for race Performed By: #### Tameka GIMENEZ, LAB17, [id number] ####Specialized Language Instructor: DOMENICA JARA ([id number])[facility] ([facility])[address] [place] [address] [place] Glucose [Mass/Vol] 87 mg/dL Normal 74-100 [facility] [place] Comment on above: Performed By: #### Tameka ABAruna, LAB17, [id number] ####Specialized Language Instructor: DOMENICA JARA ([id number])[facility])[address] [place] [address] Potassium [Moles/Vol] 4.3 mmol/L Normal 3.5-5.1 [facility] Comment on above: Result Comment: [facility] potassium values may be up to 0.5 mmol/L lower than serum values. Performed By: #### Tameka AB113, LAB17, [id number] ####Specialized Language Instructor: DOMENICA JARA ([id number])[facility] ([facility])[address] [place] [address] Protein [Mass/Vol] 7.3 g/dL Normal 6.4-8.3 [facility] [place] Comment on above: Performed By: #### Tameka GIMENEZ, LAB17, [id number] ####Specialized Language Instructor: DOMENICA JARA ([phone])[facility])[address] [place] [address] Sodium [Moles/Vol] 138 mmol/L Normal 136-145 [facility] [place] Comment on above: Performed By: #### Tameka ABAruna, LAB17, [id number] ####Specialized Language Instructor: DOMENICA JARA ([id number])[facility])[address] [place] [address] Urea nitrogen [Mass/Vol] 15 mg/dL Normal 9-23 [facility] [place] Comment on above: Performed By: #### Tameka ABAruna, LAB17, [id number] ####Specialized Language Instructor: DOMENICA JARA ([id number])[facility])[address] [place] [address] Comprehensive metabolic 1998 panelon 01-31-2025 Albumin [Mass/Vol] 2.1 g/dL Low 3.5 - 5.0 g/dL [facility] ALP [Catalytic activity/Vol] 218 U/L High 40 - 150 U/L [facility] ALT [Catalytic activity/Vol] 11 U/L NINF - 40 U/L [facility] Anion gap [Moles/Vol] 12 mmol/L 3 - 13 mmol/L [facility] AST [Catalytic activity/Vol] 31 U/L NINF - 34 U/L [facility] Bilirubin [Mass/Vol] 0.8 mg/dL NINF - 1.2 mg/dL [facility] Calcium [Mass/Vol] 10 mg/dL 8.4 - 10. 2 mg/dL [facility] Chloride [Moles/Vol] 99 mmol/L 98 - 10 7 mmol/L [facility] CO2 [Moles/Vol] 27 mmol/L 22 - 29 mmol/L [facility] Creatinine [Mass/Vol] 3.64 mg/dL High 0.72 - 1.25 mg/dL [facility] GFR/1.73 sq M.predicted (S/P/Bld) [Vol rate/Area] 18.4 mL/min Low - PINF [facility] Glucose [Mass/Vol] 87 mg/dL 74 - 100 mg/dL [facility] Interpretation and review of laboratory results Abnormal [facility] Potassium [Moles/Vol] 4.3 mmol/L 3.5 - 5.1 mmol/L [facility] Protein [Mass/Vol] 7.3 g/dL 6.4 - 8.3 g/dL [facility] Sodium [Moles/Vol] 138 mmol/L 136 - 145 mmol/L [facility] Urea nitrogen [Mass/Vol] 15 mg/dL 9 - 23 mg/d L [facility] HEMOGLOBIN AND HEMATOCRIT, B LOODon 01-31-2025 Hematocrit (Bld) [Volume fraction] 28.8 % Low 40.0-52.0 [facility] [place] Comment on above: Performed By: #### L AB753 ####Specialized Language Instructor: DOMENICA JARA ([id number])[address] Hemoglobin (Bld) [Mass/Vol] 9.2 g/dL Low 13.0-18.0 [facility] [place] Comment on above: Performed By: #### L AB753 ####Specialized Language Instructor: DOMENICA JARA ([id number])[address] Hemoglobin (Bld) [Mass/Vol]o n 01-31-2025 Hematocrit (Bld) [Volume fraction] 28.8 % Low 40.0 - 52.0 % [facility] Interpretation and review of laboratory results Abnormal [facility] Laboratory - Chemistry and C hemistry - challengeon 01-31-2025 Magnesium [Mass/Vol] 2 mg/dL 1.6 - 2 .6 mg/dL [facility] Laboratory - Coagulationon 0 01-31-2025 PT Coag (Bld) [Time] 22.4 s High 9.0 - 12.0 s [facility] Laboratory - Hematology and Cell countson 01-31-2025 Hemoglobin (Bld) [Mass/Vol] 9.2 g/dL Low 13.0 - 18.0 g/dL [facility] MAGNESIUMon 01-31-2025 Magnesium [Mass/Vol] 2.0 mg/dL Normal 1.6-2.6 [facility] Comment on above: Result Comment: ORDE R COMMENTS:Higher values can be expected in females during menses. Performed By: #### L AB113, LAB17, [id number] ####Specialized Language Instructor: DOMENICA JARA ([id number])[address] Magnesium [Mass/Vol]on 01-31 [facility] No Panel Informationon 01-31 Interpretation and review of laboratory results Normal [facility] Nursing Noteon 01-31-2025 Nursing Note Wound Vac Dressing leaking with foam falling out. Dressing removed and W-D drsg applied. Normal [facility] [place] Nursing Note Patient is out of room at time of visit. Will continue to follow patient for wound care needs. Wanda Quesada RN Normal [facility] Nursing Note Normal [facility] PHOSPHORUSon 01-31-2025 Phosphate [Mass/Vol] 4.6 mg/dL Normal 2.3-4.7 [facility] Comment on above: Performed By: #### L AB113, LAB17, [id number] ####Specialized Language Instructor: DOMENICA JARA ([id number])[facility] ([facility])[address] [place] [address] PROTHROMBIN TIMEon INR Coag (PPP) [Relative time] 2.2 {INR} High 0.9-1.1 [facility] [place] Comment on above: Result Comment: Vaughn mmended [...] Myocardial Infarction Performed By: #### L AB320 ####Specialized Language Instructor: DOMENICA JARA ([phone])[facility] ([facility])[address] [place] [address] PT Coag (PPP) [Time] 22.4 s High 9.0-12.0 [facility] Comment on above: Performed By: #### L AB320 ####Specialized Language Instructor: DOMENICA JARA ([id number])[facility] ([facility])[address] [place] [address] PT Coag (Bld) [Time]on 01-31 INR Coag (PPP) [Relative time] 2.2 {INR} High 0.9 - 1.1 [facility] Interpretation and review of laboratory results Abnormal [facility] Phosphate [Moles/Vol]on Phosphate [Mass/Vol] 4.6 mg/dL 2.3 - 4 .7 mg/dL [facility] Progress Noteon 01-31-2025 Progress Note [facility] Progress [facility] Note [facility] Progress [facility] Progress Note OCCUPATIONAL THERAPY [facility] Name/MRN: Jair Snyder ([id number]) Date: 01/31/2025 Attempted OT re-eval this AM, pt OOR at dialysis. Will follow and re-attempt as able. Giuliana Baird, BRIANR/L Normal [facility] [place] Progress Note Normal [facility] Progress Note Normal [facility] Progress Note Normal [facility] 30on 01-30-2025 30 Normal [facility] [id number] 01-30-2025 [id number] Message sent to [employer] to start [facility] auth for [employer]. Normal [facility] [place] [id number] Normal [facility] BASIC METABOLIC PANELon 05-0 Anion gap [Moles/Vol] 13 mmol/L Normal 3-13 [facility] Comment on above: Performed By: #### L AB103, [id number], LAB15 ####Specialized Language Instructor: DOMENICA JARA ([id number])[facility] ([facility])[address] [place] [address] Calcium [Mass/Vol] 9.6 mg/dL Normal 8.4-10.2 [facility] [place] Comment on above: Performed By: #### L AB103, ZUV433, LAB15 ####Specialized Language Instructor: DOMENICA JARA ([phone])[facility] [place] [address] Chloride [Moles/Vol] 99 mmol/L Normal 98-107 [facility] Comment on above: Performed By: #### L AB103, HUP595, LAB15 ####Specialized Language Instructor: DOMENICA JARA ([id number])[facility] ([facility])[address] [place] [address] CO2 [Moles/Vol] 23 mmol/L Normal 22-29 [facility] Comment on above: Performed By: #### L AB103, ACF908, LAB15 ####Specialized Language Instructor: DOMENICA JARA ([id number])[facility] ([facility])[address] [place] [address] Creatinine [Mass/Vol] 2.56 mg/dL High 0.72-1.25 [facility] Comment on above: Performed By: #### L AB103, QVZ700, LAB15 ####Specialized Language Instructor: DOMENICA JARA ([id number])[facility] [place] [address] [place] GLOMERULAR FILTRATION RATE ML/MIN/1.73 SQ M.PREDICTED 28.1 mL/min/1.73m*2 Low >60.0 [facility] [place] Comment on above: Result Comment: Calc ulation based on the Chronic Kidney Disease Epidemiology Collaboration (CKD-EPI) equation refit without adjustment for race Performed By: #### Tameka AB103, [id number], LAB15 ####Specialized Language Instructor: DOMENICA JARA ([id number])[facility] ([facility])[address] [place] [address] Glucose [Mass/Vol] 88 mg/dL Normal 74-100 [facility] [place] Comment on above: Performed By: #### Tameka AB103, QPR915, LAB15 ####Specialized Language Instructor: DOMENICA JARA ([id number])[facility])[address] [place] [address] Potassium [Moles/Vol] 3.7 mmol/L Normal 3.5-5.1 [facility] Comment on above: Result Comment: [facility] potassium values may be up to 0.5 mmol/L lower than serum values. Performed By: #### Tameka AB103, EXQ586, LAB15 ####Specialized Language Instructor: DOMENICA JARA ([id number])[facility] ([facility])[address] [place] [address] Sodium [Moles/Vol] 135 mmol/L Low 136-145 [facility] [place] Comment on above: Performed By: #### Tameka AB103, JPF803, LAB15 ####Specialized Language Instructor: DOMENICA JARA ([id number])[facility])[address] [place] [address] Urea nitrogen [Mass/Vol] 10 mg/dL Normal 9-23 [facility] [place] Comment on above: Performed By: #### L AB103, OCV768, LAB15 ####Specialized Language Instructor: DOMENICA JARA ([phone])[facility])[address] [place] [address] Basic metabolic 1998 panelon 01-30-2025 Anion gap [Moles/Vol] 13 mmol/L 3 - 13 mmol/L [facility] Calcium [Mass/Vol] 9.6 mg/dL 8.4 - 10. 2 mg/dL [facility] Chloride [Moles/Vol] 99 mmol/L 98 - 10 7 mmol/L [facility] CO2 [Moles/Vol] 23 mmol/L 22 - 29 mmol/L [facility] Creatinine [Mass/Vol] 2.56 mg/dL High 0.72 - 1.25 mg/dL [facility] GFR/1.73 sq M.predicted (S/P/Bld) [Vol rate/Area] 28.1 mL/min Low - PINF [facility] Glucose [Mass/Vol] 88 mg/dL 74 - 100 mg/dL [facility] Interpretation and review of laboratory results Abnormal [facility] Potassium [Moles/Vol] 3.7 mmol/L 3.5 - 5.1 mmol/L [facility] Sodium [Moles/Vol] 135 mmol/L Low 136 - 145 mmol/L [facility] Urea nitrogen [Mass/Vol] 10 mg/dL 9 - 23 mg/d L [facility] CBC (HEMOGRAM)on 01-30-2025 Erythrocyte distribution width (RBC) [Ratio] 18.9 % High 11.5-15.0 [facility] Comment on above: Performed By: #### L AB294 ####Specialized Language Instructor: DOMENICA JARA ([id number])[address] Hematocrit (Bld) [Volume fraction] 28.1 % Low 40.0-52.0 [facility] Comment on above: Performed By: #### L AB294 ####Specialized Language Instructor: DOMENICA JARA ([id number])[address] Hemoglobin (Bld) [Mass/Vol] 8.7 g/dL Low 13.0-18.0 [facility] Comment on above: Performed By: #### L AB294 ####Specialized Language Instructor: DOMENICA [id number])[address] MCH (RBC) [Entitic mass] 27.6 pg Normal 26.0-34.0 [facility] Comment on above: Performed By: #### L AB294 ####Specialized Language Instructor: DOMENICA [id number])[facility] [place] [address] MCHC 31.0 % Normal 30.5-36.0 [facility] Comment on above: Performed By: #### L AB294 ####Specialized Language Instructor: DOMENICA JARA ([id number])[facility] ([facility])[address] [place] [address] MCV (RBC) [Entitic vol] 89.2 fL Normal 77.0-99.0 S [facility] Comment on above: Performed By: #### L AB294 ####Specialized Language Instructor: DOMENICA JARA ([id number])[facility] ([facility])[address] [place] [address] Platelet mean volume (Bld) [Entitic vol] 9.1 fL Normal 9.0-12.7 [facility] Comment on above: Performed By: #### L AB294 ####Specialized Language Instructor: DOMENICA JARA ([id number])[facility] ([facility])[address] [place] [address] Platelets (Bld) [#/Vol] 276 10*3/uL Normal 140-440 [facility] Comment on above: Performed By: #### L AB294 ####Specialized Language Instructor: DOMENICA JARA ([id number])[facility] ([facility])[address] [place] [address] RBC (Bld) [#/Vol] 3.15 10*6/uL Low 4.40-5.90 [facility] Comment on above: Performed By: #### L AB294 ####Specialized Language Instructor: DOMENICA JARA ([id number])[facility] ([facility])[address] [place] [address] WBC (Bld) [#/Vol] 8.8 10*3/uL Normal 3.6-10.7 [facility] Comment on above: Performed By: #### L AB294 ####Specialized Language Instructor: DOMENICA JARA ([id number])[facility] ([facility])[address] [place] [address] CBC panel Auto (Bld)on 01-30 Erythrocyte distribution width (RBC) [Ratio] 18.9 % High 11.5 - 15.0 % [facility] Hematocrit (Bld) [Volume fraction] 28.1 % Low 40.0 - 52.0 % [facility] Hemoglobin (Bld) [Mass/Vol] 8.7 g/dL Low 13.0 - 18.0 g/dL [facility] Interpretation and review of laboratory results Abnormal [facility] MCH (RBC) [Entitic mass] 27.6 pg 26. 0 - 34.0 pg [facility] MCHC (RBC) [Mass/Vol] 31 % 30.5 - 36.0 % [facility] MCV (RBC) [Entitic vol] 89.2 fL 77.0 - 99.0 fL [facility] Platelet mean volume (Bld) [Entitic vol] 9.1 fL 9.0 - 12.7 fL [facility] Platelets (Bld) [#/Vol] 276 10*3/uL 140 - 440 10*3/uL [facility] RBC (Bld) [#/Vol] 3.15 10*6/uL Low 4.40 - 5.9 0 10*6/uL [facility] WBC (Bld) [#/Vol] 8.8 10*3/uL 3.6 - 10.7 10*3/uL [facility] HEMOGLOBIN AND HEMATOCRIT, B LOODon 01-30-2025 Hematocrit (Bld) [Volume fraction] 31.5 % Low 40.0-52.0 [facility] Comment on above: Performed By: #### L AB753 ####Specialized Language Instructor: DOMENICA JARA ([id number])[facility] ([facility])[address] [place] [address] [place] Hemoglobin (Bld) [Mass/Vol] 9.8 g/dL Low 13.0-18.0 [facility] Comment on above: Performed By: #### L AB753 ####Specialized Language Instructor: DOMENICA JARA ([id number])[facility] ([facility])[address] [place] [address] Hemoglobin (Bld) [Mass/Vol]O rdered By: Rikki Caballero on 01-30-2025 Hematocrit (Bld) [Volume fraction] 31.5 % Low 40.0 - 52.0 % [facility] Interpretation and review of laboratory results Abnormal [facility] Laboratory - Chemistry and C hemistry - challengeon 01-30-2025 Glucose [Mass/Vol] 106 mg/dL High 70 - 100 mg/dL [facility] Glucose [Mass/Vol] 107 mg/dL High 70 - 100 mg/dL [facility] Glucose [Mass/Vol] 77 mg/dL 70 - 100 mg/dL [facility] Magnesium [Mass/Vol] 1.9 mg/dL 1.6 - 2 .6 mg/dL [facility] Laboratory - Coagulationon 0 01-30-2025 PT Coag (Bld) [Time] 24.9 s High 9.0 - 12.0 s [facility] Laboratory - Hematology and Cell countsOrdered By: Rikki Caballero on 01-30-2025 Hemoglobin (Bld) [Mass/Vol] 9.8 g/dL Low 13.0 - 18.0 g/dL [facility] MAGNESIUMon 01-30-2025 Magnesium [Mass/Vol] 1.9 mg/dL Normal 1.6-2.6 [facility] Comment on above: Result Comment: ARPAN Kaplan COMMENTS:Higher values can be expected in females during menses. Performed By: #### L AB103, [id number], LAB15 ####Specialized Language Instructor: DOMENICA JARA ([id number])[address] Magnesium [Mass/Vol]on 01-30 Interpretation and review of laboratory results Normal [facility] No Panel Informationon 01-30 Interpretation and review of laboratory results Abnormal [facility] RADIOLOGY SYSTEM [facility] Radiology Study observation (narrative) [facility] meredith Interpretation and review of laboratory results Abnormal [facility] [facility] Interpretation and review of laboratory results Normal [facility] Blood Expiration Date [id number] S [facility] Crossmatch interpretation COMP [facility] Dispense Status Released from Versa [facility] Product Blood Type 9500 [facility] PRODUCT CODE [id number] [facility] ABO O [facility] Unit Number [id number] [facility] alth Unit RH Negative [facility] Unit Volume 300 mL [facility] No Panel InformationOrdered By: Jun Borrero on 01-30-2025 [facility] Work Phone: Nursing Noteon 01-30-2025 Nursing Note Normal [facility] PHOSPHORUSon 01-30-2025 Phosphate [Mass/Vol] 3.7 mg/dL Normal 2.3-4.7 [facility] Comment on above: Performed By: #### L AB103, OOC839, LAB15 ####Specialized Language Instructor: DOMENICA JARA ([phone])[facility])[address] [place] [address] PROTHROMBIN TIMEon INR Coag (PPP) [Relative time] 2.5 {INR} High 0.9-1.1 [facility] Comment on above: Performed By: #### L AB320 ####Specialized Language Instructor: DOMENICA JARA ([phone])[facility] ([facility])[address] [place] [address] PT Coag (PPP) [Time] 24.9 s High 9.0-12.0 [facility] Comment on above: Performed By: #### L AB320 ####Specialized Language Instructor: DOMENICA JARA ([id number])[facility])[address] [place] [address] PT Coag (Bld) [Time]on 01-30 INR Coag (PPP) [Relative time] 2.5 {INR} High 0.9 - 1.1 [facility] Interpretation and review of laboratory results Abnormal [facility] Phosphate [Moles/Vol]on Interpretation and review of laboratory results Normal [facility] Phosphate [Mass/Vol] 3.7 mg/dL 2.3 - 4 .7 mg/dL [facility] Progress Noteon 01-30-2025 Progress Note Normal [facility] Progress Note OCCUPATIONAL THERAPY [facility] Name/MRN: Jair Snyder ([id number]) Date: 01/30/2025 Attempted OT services however, Pt is currently OOR-at specials for IR line- Per RN. Will re attempt for pre cert as schedule permits. VICKY Bates [facility] Progress Note Speech-Language Pathology Patient is off of the unit for tunnel catheter placement. Will reschedule dysphagia treatment session for 01/31/2025 and determine if patient is a candidate for diet upgrade. Christina Limon MS, CCC/PRACTICE DIRECTOR [facility] Progress Note Normal [facility] Progress Note Normal [facility] Progress Note Normal [facility] Progress Note Normal [facility] Progress Note Normal [facility] 30on 01-29-2025 30 [facility] 30 [facility] [id number] 01-29-2025 [id number] Updates placed to [facility] Return - [place] via [employer] per TCC request. Await review and response regarding ability to accept. TCC notified. Electronically signed by NELSON Rodrigues [facility] [phone] [facility] 36on 01-29-2025 36 Chart reviewed, patient appears to be sensitive to warfarin at this time and I wouldn't be able to guarantee INR remains less than 3, so opted to hold dose today. I canceled order. [facility] 36 [facility] APTTon 01-29-2025 aPTT Coag (Bld) [Time] 51.4 s High 20.0-30.5 [facility] Comment on above: Result Comment: ARPAN Kaplan COMMENTS:NOTE: The therapeutic time for Heparin anticoagulation, based on Xa activity inhibition, is an APTT of 46-80 seconds. Performed By: #### L AB325, FIR870 ####Specialized Language Instructor: DOMENICA JARA ([id number])[facility] ([address] BASIC METABOLIC PANELon Anion gap [Moles/Vol] 17 mmol/L High 3-13 [facility] Comment on above: Performed By: #### L AB113, JKO045, LAB15 ####Specialized Language Instructor: DOMENICA JARA ([id number])[facility])[address] [place] [address] Calcium [Mass/Vol] 9.8 mg/dL Normal 8.4-10.2 [facility] Comment on above: Performed By: #### L AB113, JPL405, LAB15 ####Specialized Language Instructor: DOMENICA JARA ([id number])[facility] [place] [address] Chloride [Moles/Vol] 94 mmol/L Low 98-107 [facility] Comment on above: Performed By: #### L AB113, WWW838, LAB15 ####Specialized Language Instructor: DOMENICA JARA ([id number])[facility] ([facility])[address] [place] [address] CO2 [Moles/Vol] 23 mmol/L Normal 22-29 [facility] Comment on above: Performed By: #### Tameka AB113, BMJ743, LAB15 ####Specialized Language Instructor: DOMENICA JARA ([id number])[facility] ([facility])[address] [place] [address] Creatinine [Mass/Vol] 4.17 mg/dL High 0.72-1.25 [facility] Comment on above: Performed By: #### L AB113, [id number], LAB15 ####Specialized Language Instructor: DOMENICA JARA ([id number])[facility] ([facility])[address] [place] [address] [place] GLOMERULAR FILTRATION RATE ML/MIN/1.73 SQ M.PREDICTED 15.6 mL/min/1.73m*2 Low >60.0 [facility] Comment on above: Result Comment: Calc ulation based on the Chronic Kidney Disease Epidemiology Collaboration (CKD-EPI) equation refit without adjustment for race Performed By: #### L AB113, SRC393, LAB15 ####Specialized Language Instructor: DOMENICA JARA ([id number])[facility] ([facility])[address] [place] [address] Glucose [Mass/Vol] 80 mg/dL Normal 74-100 [facility] Comment on above: Performed By: #### L AB113, DTY827, LAB15 ####Specialized Language Instructor: DOMENICA JARA ([id number])[facility])[address] [place] [address] Potassium [Moles/Vol] 3.7 mmol/L Normal 3.5-5.1 [facility] Comment on above: Result Comment: [facility] potassium values may be up to 0.5 mmol/L lower than serum values. Performed By: #### L AB113, CYA975, LAB15 ####Specialized Language Instructor: DOMENICA JARA ([id number])[facility] ([facility])[address] [place] [address] Sodium [Moles/Vol] 134 mmol/L Low 136-145 [facility] Comment on above: Performed By: #### L AB113, DXR910, LAB15 ####Specialized Language Instructor: DOMENICA JARA ([id number])[facility] ([facility])[address] [place] [address] Urea nitrogen [Mass/Vol] 21 mg/dL Normal 9-23 [facility] Comment on above: Performed By: #### L AB113, PQR915, LAB15 ####Specialized Language Instructor: DOMENICA JARA ([id number])[facility])[address] [place] [address] Basic metabolic 1998 panelon 01-29-2025 Anion gap [Moles/Vol] 17 mmol/L High 3 - 13 mmol/L [facility] Calcium [Mass/Vol] 9.8 mg/dL 8.4 - 10. 2 mg/dL [facility] Chloride [Moles/Vol] 94 mmol/L Low 98 - 10 7 mmol/L [facility] CO2 [Moles/Vol] 23 mmol/L 22 - 29 mmol/L [facility] Creatinine [Mass/Vol] 4.17 mg/dL High 0.72 - 1.25 mg/dL [facility] GFR/1.73 sq M.predicted (S/P/Bld) [Vol rate/Area] 15.6 mL/min Low - PINF [facility] Glucose [Mass/Vol] 80 mg/dL 74 - 100 mg/dL [facility] Potassium [Moles/Vol] 3.7 mmol/L 3.5 - 5.1 mmol/L [facility] Sodium [Moles/Vol] 134 mmol/L Low 136 - 145 mmol/L [facility] Urea nitrogen [Mass/Vol] 21 mg/dL 9 - 23 mg/d L [facility] CBC (HEMOGRAM)on 01-29-2025 Erythrocyte distribution width (RBC) [Ratio] 19.0 % High 11.5-15.0 [facility] Comment on above: Performed By: #### L AB294 ####Specialized Language Instructor: DOMENICA JARA ([id number])[facility])[address] [place] [address] Hematocrit (Bld) [Volume fraction] 27.3 % Low 40.0-52.0 [facility] Comment on above: Performed By: #### L AB294 ####Specialized Language Instructor: DOMENICA JARA ([id number])[facility])[address] [place] [address] Hemoglobin (Bld) [Mass/Vol] 8.6 g/dL Low 13.0-18.0 [facility] Comment on above: Performed By: #### L AB294 ####Specialized Language Instructor: DOMENICA JARA ([id number])[facility])[address] [place] [address] MCH (RBC) [Entitic mass] 28.1 pg Normal 26.0-34.0 [facility] Comment on above: Performed By: #### L AB294 ####Specialized Language Instructor: DOMENICA JARA ([id number])[facility])[address] [place] [address] MCHC 31.5 % Normal 30.5-36.0 [facility] Comment on above: Performed By: #### L AB294 ####Specialized Language Instructor: DOMENICA JARA ([id number])[facility])[address] [place] [address] MCV (RBC) [Entitic vol] 89.2 fL Normal 77.0-99.0 [facility] Comment on above: Performed By: #### L AB294 ####Specialized Language Instructor: DOMENICA JARA ([id number])[facility])[address] [place] [address] Platelet mean volume (Bld) [Entitic vol] 9.4 fL Normal 9.0-12.7 [facility] Comment on above: Performed By: #### L AB294 ####Specialized Language Instructor: DOMENICA JAAR ([id number])[facility] ([facility])[address] [place] [address] Platelets (Bld) [#/Vol] 271 10*3/uL Normal 140-440 [facility] Comment on above: Performed By: #### L AB294 ####Specialized Language Instructor: DOMENICA JARA ([id number])[facility])[address] [place] [address] RBC (Bld) [#/Vol] 3.06 10*6/uL Low 4.40-5.90 [facility] Comment on above: Performed By: #### L AB294 ####Specialized Language Instructor: DOMENICA JARA ([id number])[facility])[address] [place] [address] WBC (Bld) [#/Vol] 9.4 10*3/uL Normal 3.6-10.7 [facility] Comment on above: Performed By: #### L AB294 ####Specialized Language Instructor: DOMENICA JARA ([id number])[facility])[address] [place] [address] CBC panel Auto (Bld)on 01-29 Erythrocyte distribution width (RBC) [Ratio] 19 % High 11.5 - 15.0 % [facility] Hematocrit (Bld) [Volume fraction] 27.3 % Low 40.0 - 52.0 % [facility] Hemoglobin (Bld) [Mass/Vol] 8.6 g/dL Low 13.0 - 18.0 g/dL [facility] Interpretation and review of laboratory results Abnormal [facility] MCH (RBC) [Entitic mass] 28.1 pg 26. 0 - 34.0 pg [facility] MCHC (RBC) [Mass/Vol] 31.5 % 30.5 - 36.0 % [facility] MCV (RBC) [Entitic vol] 89.2 fL 77.0 - 99.0 fL [facility] Platelet mean volume (Bld) [Entitic vol] 9.4 fL 9.0 - 12.7 fL [facility] Platelets (Bld) [#/Vol] 271 10*3/uL 140 - 440 10*3/uL [facility] RBC (Bld) [#/Vol] 3.06 10*6/uL Low 4.40 - 5.9 0 10*6/uL [facility] WBC (Bld) [#/Vol] 9.4 10*3/uL 3.6 - 10.7 10*3/uL [facility] Laboratory - Chemistry and C hemistry - challengeon 01-29-2025 Glucose [Mass/Vol] 82 mg/dL 70 - 100 mg/dL [facility] Glucose [Mass/Vol] 87 mg/dL 70 - 100 mg/dL [facility] Glucose [Mass/Vol] 91 mg/dL 70 - 100 mg/dL [facility] Magnesium [Mass/Vol] 2 mg/dL 1.6 - 2 .6 mg/dL [facility] Laboratory - Coagulationon 0 01-29-2025 Coagulation factor VIII activity actual/normal Coag (PPP) [Relative time] 412 % High 56 - 191 % [facility] vWf Ag actual/normal IA (PPP) [Relative mass conc] 281 % High 52 - 214 % [facility] vWf multimers Ql (PPP) See Note [facility] vWf ristocetin cofactor act actual/normal Platelet aggregation (PPP) [Relative time] 200 % 51 - 215 % [facility] th PT Coag (Bld) [Time] 24 s High 9.0 - 12.0 s [facility] MAGNESIUMon 01-29-2025 Magnesium [Mass/Vol] 2.0 mg/dL Normal 1.6-2.6 [facility] Comment on above: Result Comment: ARPAN Kaplan COMMENTS:Higher values can be expected in females during menses. Performed By: #### L AB113, ECO458, LAB15 ####Specialized Language Instructor: DOMENICA JARA ([id number])[facility] ([facility])[address] Magnesium [Mass/Vol]on 01-29 Interpretation and review of laboratory results Normal [facility] No Panel Informationon 01-29 Interpretation and review of laboratory results Normal [facility] Interpretation and review of laboratory results Normal [facility] Interpretation and review of laboratory results Abnormal [facility] Interpretation and review of laboratory results Normal [facility] Interpretation and review of laboratory results Abnormal [facility] Interpretation and review of laboratory results Abnormal [facility] Nursing Noteon 01-29-2025 Nursing Note I was able to get him into chair yesterday. Today he refuses but states maybe later. He is tired from dialysis Normal [facility] Nursing Note Patient bathed, refusing gown. He has some bloody drainage on pad and Dr Lira in at bedside and aware. Looks like it may be from wound but unsure. Normal [facility] Nursing Note Per Dr Lira request I called the coumadin clinic for them to advise on if patient should take tonight dose with pending tunneled cath placement Normal [facility] Nursing Note Patient returned from dialysis. He is sleeping but awakens for assessment. Lunch at bedside and he wants it left for now. Call light in reach Normal [facility] Nursing Note Normal [facility] Nursing Note Normal [facility] Nursing Note Patient in bed, anxious picking at everything. Refusing wound care to change his dressing. Dialysis is ready for patient. They would like me to hold off on his lopressor. Normal [facility] PHOSPHORUSon 01-29-2025 Phosphate [Mass/Vol] 4.9 mg/dL High 2.3-4.7 [facility] Comment on above: Performed By: #### L AB113, ENL752, LAB15 ####Specialized Language Instructor: DOMENICA JARA ([id number])[facility] [place] [address] [place] PROTHROMBIN TIMEon INR Coag (PPP) [Relative time] 2.4 {INR} High 0.9-1.1 [facility] Comment on above: Result Comment: Vaughn mmended [...] Myocardial Infarction Performed By: #### Tameka AB325, WCG239 ####Specialized Language Instructor: DOMENICA JARA ([id number])[facility] ([facility])[address] [place] [address] PT Coag (PPP) [Time] 24.0 s High 9.0-12.0 [facility] Comment on above: Performed By: #### Tameka AB325, KTU205 ####Specialized Language Instructor: DOMENICA JARA ([id number])[facility] ([facility])[address] [place] [address] PT Coag (Bld) [Time]on 01-29 INR Coag (PPP) [Relative time] 2.4 {INR} High 0.9 - 1.1 [facility] Phosphate [Moles/Vol]on Phosphate [Mass/Vol] 4.9 mg/dL High 2.3 - 4 .7 mg/dL [facility] Progress Noteon 01-29-2025 Progress Note Normal [facility] Progress Note Normal [facility] Progress Note Normal [facility] Progress Note Normal [facility] Progress Note Normal [facility] Progress Note Normal [facility] aPTT Coag (Bld) [Time]on aPTT Coag (PPP) [Time] 51.4 s High 20.0 - 30.5 s [facility] 30on 01-28-2025 30 Normal [facility] 30 Normal [facility] APTTon 01-28-2025 aPTT Coag (Bld) [Time] 49.0 s High 20.0-30.5 [facility] Comment on above: Result Comment: ORDE R COMMENTS:NOTE: The therapeutic time for Heparin anticoagulation, based on Xa activity inhibition, is an APTT of 46-80 seconds. Performed By: #### L AB325 ####Specialized Language Instructor: DOMENICA JARA ([phone])[facility])[address] [place] [address] aPTT Coag (Bld) [Time] 46.3 s High 20.0-30.5 [facility] Comment on above: Result Comment: ARPAN Kaplan COMMENTS:NOTE: The therapeutic time for Heparin anticoagulation, based on Xa activity inhibition, is an APTT of 46-80 seconds. Performed By: #### L AB325, JLY864 ####Specialized Language Instructor: DOMENICA JARA ([id number])[facility] ([facility])[address] [place] [address] BASIC METABOLIC PANELon 05-0 Anion gap [Moles/Vol] 13 mmol/L Normal 3-13 [facility] Comment on above: Performed By: #### L AB15, VFY830, FPT914 ####Specialized Language Instructor: DOMENICA JARA ([id number])[facility] ([facility])[address] [place] [address] Calcium [Mass/Vol] 10.0 mg/dL Normal 8.4-10.2 [facility] Comment on above: Performed By: #### L AB15, YPW603, BTU909 ####Specialized Language Instructor: DOMENICA JARA ([id number])[facility])[address] [place] [address] Chloride [Moles/Vol] 98 mmol/L Normal 98-107 [facility] Comment on above: Performed By: #### L AB15, MJQ989, SZM893 ####Specialized Language Instructor: DOMENICA JARA ([id number])[facility])[address] [place] [address] CO2 [Moles/Vol] 26 mmol/L Normal 22-29 [facility] Comment on above: Performed By: #### L AB15, FXF933, HJQ939 ####Specialized Language Instructor: DOMENICA JARA ([id number])[facility] ([facility])[address] [place] [address] Creatinine [Mass/Vol] 3.37 mg/dL High 0.72-1.25 [facility] Comment on above: Performed By: #### L AB15, TMP986, BMY250 ####Specialized Language Instructor: DOMENICA JARA ([id number])[facility])[address] [place] [address] [place] GLOMERULAR FILTRATION RATE ML/MIN/1.73 SQ M.PREDICTED 20.2 mL/min/1.73m*2 Low >60.0 [facility] Comment on above: Result Comment: Calc ulation based on the Chronic Kidney Disease Epidemiology Collaboration (CKD-EPI) equation refit without adjustment for race Performed By: #### L AB15, JJI755, NQP993 ####Specialized Language Instructor: DOMENICA JARA ([id number])[facility])[address] [place] [address] Glucose [Mass/Vol] 82 mg/dL Normal 74-100 [facility] Comment on above: Performed By: #### L AB15, QEM125, ELY759 ####Specialized Language Instructor: DOMENICA JARA ([id number])[facility])[address] [place] [address] Potassium [Moles/Vol] 3.6 mmol/L Normal 3.5-5.1 [facility] Comment on above: Result Comment: [facility] potassium values may be up to 0.5 mmol/L lower than serum values. Performed By: #### L AB15, GJE322, DPP373 ####Specialized Language Instructor: DOMENICA JARA ([phone])[facility] ([facility])[address] [place] [address] [place] Sodium [Moles/Vol] 137 mmol/L Normal 136-145 [facility] Comment on above: Performed By: #### L AB15, UPV486, IAL660 ####Specialized Language Instructor: DOMENICA JARA ([id number])[facility])[address] [place] [address] [place] Urea nitrogen [Mass/Vol] 14 mg/dL Normal 9-23 [facility] Comment on above: Performed By: #### L AB15, ZUB650, OFA469 ####Specialized Language Instructor: DOMENICA JARA ([id number])[facility])[address] [place] [address] Basic metabolic 1998 panelon 01-28-2025 Anion gap [Moles/Vol] 13 mmol/L 3 - 13 mmol/L [facility] Calcium [Mass/Vol] 10 mg/dL 8.4 - 10. 2 mg/dL [facility] Chloride [Moles/Vol] 98 mmol/L 98 - 10 7 mmol/L [facility] CO2 [Moles/Vol] 26 mmol/L 22 - 29 mmol/L [facility] Creatinine [Mass/Vol] 3.37 mg/dL High 0.72 - 1.25 mg/dL [facility] GFR/1.73 sq M.predicted (S/P/Bld) [Vol rate/Area] 20.2 mL/min Low - PINF [facility] Glucose [Mass/Vol] 82 mg/dL 74 - 100 mg/dL [facility] Interpretation and review of laboratory results Abnormal [facility] Potassium [Moles/Vol] 3.6 mmol/L 3.5 - 5.1 mmol/L [facility] Sodium [Moles/Vol] 137 mmol/L 136 - 145 mmol/L [facility] Urea nitrogen [Mass/Vol] 14 mg/dL 9 - 23 mg/d L [facility] CBC (HEMOGRAM)on 01-28-2025 Erythrocyte distribution width (RBC) [Ratio] 19.0 % High 11.5-15.0 [facility] Comment on above: Performed By: #### L AB294 ####Specialized Language Instructor: DOMENICA JARA ([id number])[facility] ([facility])[address] [place] [address] Hematocrit (Bld) [Volume fraction] 26.3 % Low 40.0-52.0 [facility] Comment on above: Performed By: #### L AB294 ####Specialized Language Instructor: DOMENICA JARA ([id number])[facility] ([facility])[address] [place] [address] Hemoglobin (Bld) [Mass/Vol] 8.5 g/dL Low 13.0-18.0 [facility] Comment on above: Performed By: #### L AB294 ####Specialized Language Instructor: DOMENICA JARA ([id number])[facility] ([facility])[address] [place] [address] MCH (RBC) [Entitic mass] 28.2 pg Normal 26.0-34.0 [facility] Comment on above: Performed By: #### L AB294 ####Specialized Language Instructor: DOMENICA JARA ([id number])[facility] ([facility])[address] [place] [address] MCHC 32.3 % Normal 30.5-36.0 [facility] Comment on above: Performed By: #### L AB294 ####Specialized Language Instructor: DOMENICA JARA ([id number])[facility] ([facility])[address] [place] [address] MCV (RBC) [Entitic vol] 87.4 fL Normal 77.0-99.0 [facility] Comment on above: Performed By: #### L AB294 ####Specialized Language Instructor: DOMENICA JARA ([id number])[facility] ([facility])[address] [place] [address] Platelet mean volume (Bld) [Entitic vol] 9.3 fL Normal 9.0-12.7 [facility] Comment on above: Performed By: #### L AB294 ####Specialized Language Instructor: DOMENICA JARA ([id number])[facility] ([facility])[address] [place] [address] Platelets (Bld) [#/Vol] 240 10*3/uL Normal 140-440 [facility] Comment on above: Performed By: #### L AB294 ####Specialized Language Instructor: DOMENICA JARA ([id number])[facility] ([facility])[address] [place] [address] RBC (Bld) [#/Vol] 3.01 10*6/uL Low 4.40-5.90 [facility] Comment on above: Performed By: #### L AB294 ####Specialized Language Instructor: DOMENICA JARA ([id number])[facility] [facility] ([facility])[address] [place] [address] WBC (Bld) [#/Vol] 9.8 10*3/uL Normal 3.6-10.7 [facility] Comment on above: Performed By: #### L AB294 ####Specialized Language Instructor: DOMENICA JARA ([id number])[facility] [place] [address] CBC panel Auto (Bld)on 01-28 Erythrocyte distribution width (RBC) [Ratio] 19 % High 11.5 - 15.0 % [facility] Hematocrit (Bld) [Volume fraction] 26.3 % Low 40.0 - 52.0 % [facility] Hemoglobin (Bld) [Mass/Vol] 8.5 g/dL Low 13.0 - 18.0 g/dL [facility] Interpretation and review of laboratory results Abnormal [facility] MCH (RBC) [Entitic mass] 28.2 pg 26. 0 - 34.0 pg [facility] MCHC (RBC) [Mass/Vol] 32.3 % 30.5 - 36.0 % [facility] MCV (RBC) [Entitic vol] 87.4 fL 77.0 - 99.0 fL [facility] Platelet mean volume (Bld) [Entitic vol] 9.3 fL 9.0 - 12.7 fL [facility] Platelets (Bld) [#/Vol] 240 10*3/uL 140 - 440 10*3/uL [facility] RBC (Bld) [#/Vol] 3.01 10*6/uL Low 4.40 - 5.9 0 10*6/uL [facility] WBC (Bld) [#/Vol] 9.8 10*3/uL 3.6 - 10.7 10*3/uL [facility] Laboratory - Chemistry and C hemistry - challengeon 01-28-2025 Glucose [Mass/Vol] 127 mg/dL High 70 - 100 mg/dL [facility] Magnesium [Mass/Vol] 2 mg/dL 1.6 - 2 .6 mg/dL [facility] Laboratory - Coagulationon 0 01-28-2025 PT Coag (Bld) [Time] 21.9 s High 9.0 - 12.0 s [facility] MAGNESIUMon 01-28-2025 Magnesium [Mass/Vol] 2.0 mg/dL Normal 1.6-2.6 [facility] Comment on above: Result Comment: ORDE R COMMENTS:Higher values can be expected in females during menses. Performed By: #### L AB15, [id number], [id number] ####Specialized Language Instructor: DOMENICA JARA ([id number])[facility] ([facility])[address] [place] [address] Magnesium [Mass/Vol]on 01-28 Interpretation and review of laboratory results Normal [facility] No Panel Informationon 01-28 Interpretation and review of laboratory results Abnormal [facility] Interpretation and review of laboratory results Abnormal [facility] Nursing Noteon 01-28-2025 Nursing Note Report called to Ana Laura in [facility] Normal [facility] Nursing Note Normal [facility] Nursing Note Patient in envella bed. Wound vac to buttocks. Assisted patient to chair with heavy assist of 2. Will myron back. Call light in reach Normal [facility] PHOSPHORUSon 01-28-2025 Phosphate [Mass/Vol] 4.9 mg/dL High 2.3-4.7 [facility] Comment on above: Performed By: #### L AB15, [id number], ICL501 ####Specialized Language Instructor: DOMENICA JARA ([id number])[facility] ([facility])[address] [place] [address] PROTHROMBIN TIMEon INR Coag (PPP) [Relative time] 2.2 {INR} High 0.9-1.1 [facility] Comment on above: Result Comment: Vaughn mmended [...] Myocardial Infarction Performed By: #### L AB325, HAS544 ####Specialized Language Instructor: DOMENICA JARA ([phone])[facility] ([facility])[address] [place] [address] PT Coag (PPP) [Time] 21.9 s High 9.0-12.0 [facility] Comment on above: Performed By: #### L AB325, [id number] ####Specialized Language Instructor: DOMENICA JARA ([id number])[facility] ([facility])[address] [place] [address] PT Coag (Bld) [Time]on 01-28 INR Coag (PPP) [Relative time] 2.2 {INR} High 0.9 - 1.1 [facility] Phosphate [Moles/Vol]on Interpretation and review of laboratory results Abnormal [facility] Phosphate [Mass/Vol] 4.9 mg/dL High 2.3 - 4 .7 mg/dL [facility] Progress Noteon 01-28-2025 Progress Note Normal [facility] Progress Note Normal [facility] Progress Note Normal [facility] aPTT Coag (Bld) [Time]on aPTT Coag (PPP) [Time] 49 s High 20.0 - 30.5 s [facility] Interpretation and review of laboratory results Abnormal [facility] aPTT Coag (PPP) [Time] 46.3 s High 20.0 - 30.5 s [facility] 30on 01-27-2025 30 Normal [facility] APTTon 01-27-2025 aPTT Coag (Bld) [Time] 47.9 s High 20.0-30.5 [facility] Comment on above: Result Comment: ARPAN Kaplan COMMENTS:NOTE: The therapeutic time for Heparin anticoagulation, based on Xa activity inhibition, is an APTT of 46-80 seconds. Performed By: #### L AB325 ####Specialized Language Instructor: DOMENICA JARA ([phone])[facility])[address] [place] [address] aPTT Coag (Bld) [Time] 49.6 s High 20.0-30.5 [facility] Comment on above: Result Comment: ARPAN Kaplan COMMENTS:NOTE: The therapeutic time for Heparin anticoagulation, based on Xa activity inhibition, is an APTT of 46-80 seconds. Performed By: #### L AB325 ####Specialized Language Instructor: DOMENICA JARA ([id number])[facility])[address] [place] [address] aPTT Coag (Bld) [Time] 45.0 s High 20.0-30.5 [facility] Comment on above: Result Comment: ARPAN Kaplan COMMENTS:NOTE: The therapeutic time for Heparin anticoagulation, based on Xa activity inhibition, is an APTT of 46-80 seconds. Performed By: #### L AB325 ####Specialized Language Instructor: DOMENICA JARA ([phone])[facility])[address] [place] [address] aPTT Coag (Bld) [Time] 40.2 s High 20.0-30.5 [facility] Comment on above: Result Comment: ARPAN Kaplan COMMENTS:NOTE: The therapeutic time for Heparin anticoagulation, based on Xa activity inhibition, is an APTT of 46-80 seconds. Performed By: #### L AB320, [id number] ####Specialized Language Instructor: DOMENICA [id number])[facility])[address] [place] [address] BASIC METABOLIC PANELon 05-0 Anion gap [Moles/Vol] 17 mmol/L High 3-13 [facility] Comment on above: Performed By: #### L AB15, [id number], [id number] ####Specialized Language Instructor: DOMENICA JARA ([id number])[address] Calcium [Mass/Vol] 9.9 mg/dL Normal 8.4-10.2 [facility] Comment on above: Performed By: #### L AB15, [id number], [id number] ####Specialized Language Instructor: DOMENICA JARA ([id number])[facility] [place] [address] [place] Chloride [Moles/Vol] 99 mmol/L Normal 98-107 [facility] Comment on above: Performed By: #### L AB15, EKA337, IDG015 ####Specialized Language Instructor: DOMENICA JARA ([id number])[facility] [place] [address] [place] CO2 [Moles/Vol] 23 mmol/L Normal 22-29 [facility] Comment on above: Performed By: #### L AB15, KZD772, [id number] ####Specialized Language Instructor: DOMENICA JARA ([id number])[facility] ([facility])[address] [place] [address] Creatinine [Mass/Vol] 2.27 mg/dL High 0.72-1.25 [facility] Comment on above: Performed By: #### L AB15, [id number], FKP605 ####Specialized Language Instructor: DOMENICA JARA ([id number])[facility] ([facility])[address] [place] [address] [place] GLOMERULAR FILTRATION RATE ML/MIN/1.73 SQ M.PREDICTED 32.4 mL/min/1.73m*2 Low >60.0 [facility] Comment on above: Result Comment: Calc ulation based on the Chronic Kidney Disease Epidemiology Collaboration (CKD-EPI) equation refit without adjustment for race Performed By: #### L AB15, [id number], BEF562 ####Specialized Language Instructor: DOMENICA JARA ([id number])[facility] [place] [address] [place] Glucose [Mass/Vol] 115 mg/dL High 74-100 [facility] Comment on above: Performed By: #### L AB15, LGN215, SQN347 ####Specialized Language Instructor: DOMENICA JARA ([id number])[facility] ([facility])[address] [place] [address] [place] Potassium [Moles/Vol] 3.9 mmol/L Normal 3.5-5.1 [facility] Comment on above: Result Comment: [facility] potassium values may be up to 0.5 mmol/L lower than serum values. Performed By: #### L AB15, KOR413, UBE575 ####Specialized Language Instructor: DOMENICA JARA ([id number])[facility] ([facility])[address] [place] [address] Sodium [Moles/Vol] 139 mmol/L Normal 136-145 [facility] Comment on above: Performed By: #### L AB15, OXQ912, SEE307 ####Specialized Language Instructor: DOMENICA JARA ([id number])[facility] ([facility])[address] [place] [address] Urea nitrogen [Mass/Vol] 9 mg/dL Normal 9-23 [facility] Comment on above: Performed By: #### L AB15, HAP767, [id number] ####Specialized Language Instructor: ODMENICA JARA ([id number])[facility] ([facility])[address] [place] [address] Basic metabolic 1998 panelon 01-27-2025 Anion gap [Moles/Vol] 17 mmol/L High 3 - 13 mmol/L [facility] Calcium [Mass/Vol] 9.9 mg/dL 8.4 - 10. 2 mg/dL [facility] Chloride [Moles/Vol] 99 mmol/L 98 - 10 7 mmol/L [facility] CO2 [Moles/Vol] 23 mmol/L 22 - 29 mmol/L [facility] Creatinine [Mass/Vol] 2.27 mg/dL High 0.72 - 1.25 mg/dL [facility] GFR/1.73 sq M.predicted (S/P/Bld) [Vol rate/Area] 32.4 mL/min Low - PINF [facility] Glucose [Mass/Vol] 115 mg/dL High 74 - 100 mg/dL [facility] Interpretation and review of laboratory results Abnormal [facility] Potassium [Moles/Vol] 3.9 mmol/L 3.5 - 5.1 mmol/L [facility] Sodium [Moles/Vol] 139 mmol/L 136 - 145 mmol/L [facility] Urea nitrogen [Mass/Vol] 9 mg/dL 9 - 23 mg/d L [facility] CBC (HEMOGRAM)on 01-27-2025 Erythrocyte distribution width (RBC) [Ratio] 19.1 % High 11.5-15.0 [facility] Comment on above: Performed By: #### L AB294 ####Specialized Language Instructor: DOMENICA JARA ([id number])[facility] ([facility])[address] [place] [address] Hematocrit (Bld) [Volume fraction] 28.3 % Low 40.0-52.0 [facility] Comment on above: Performed By: #### L AB294 ####Specialized Language Instructor: DOMENICA JARA ([id number])[facility])[address] [place] [address] Hemoglobin (Bld) [Mass/Vol] 9.0 g/dL Low 13.0-18.0 [facility] Comment on above: Performed By: #### L AB294 ####Specialized Language Instructor: DOMENICA JARA ([id number])[facility] ([facility])[address] [place] [address] MCH (RBC) [Entitic mass] 27.6 pg Normal 26.0-34.0 [facility] Comment on above: Performed By: #### L AB294 ####Specialized Language Instructor: DOMENICA JARA ([id number])[facility])[address] [place] [address] MCHC 31.8 % Normal 30.5-36.0 [facility] Comment on above: Performed By: #### L AB294 ####Specialized Language Instructor: DOMENICA JARA ([id number])[facility] ([facility])[address] [place] [address] MCV (RBC) [Entitic vol] 86.8 fL Normal 77.0-99.0 S [facility] Comment on above: Performed By: #### L AB294 ####Specialized Language Instructor: DOMENICA JARA ([id number])[facility])[address] [place] [address] Platelet mean volume (Bld) [Entitic vol] 8.7 fL Low 9.0-12.7 [facility] Comment on above: Performed By: #### L AB294 ####Specialized Language Instructor: DOMENICA JARA ([id number])[facility])[address] [place] [address] Platelets (Bld) [#/Vol] 273 10*3/uL Normal 140-440 [facility] Comment on above: Performed By: #### L AB294 ####Specialized Language Instructor: DOMENICA JARA ([id number])[facility] ([facility])[address] [place] [address] RBC (Bld) [#/Vol] 3.26 10*6/uL Low 4.40-5.90 [facility] Comment on above: Performed By: #### L AB294 ####Specialized Language Instructor: DOMENICA JARA ([id number])[facility] ([facility])[address] [place] [address] WBC (Bld) [#/Vol] 10.0 10*3/uL Normal 3.6-10.7 [facility] Comment on above: Performed By: #### L AB294 ####Specialized Language Instructor: DOMENICA JARA ([id number])[facility])[address] [place] [address] CBC panel Auto (Bld)on 01-27 Erythrocyte distribution width (RBC) [Ratio] 19.1 % High 11.5 - 15.0 % [facility] Hematocrit (Bld) [Volume fraction] 28.3 % Low 40.0 - 52.0 % [facility] Hemoglobin (Bld) [Mass/Vol] 9 g/dL Low 13.0 - 18.0 g/dL [facility] Interpretation and review of laboratory results Abnormal [facility] MCH (RBC) [Entitic mass] 27.6 pg 26. 0 - 34.0 pg [facility] MCHC (RBC) [Mass/Vol] 31.8 % 30.5 - 36.0 % [facility] MCV (RBC) [Entitic vol] 86.8 fL 77.0 - 99.0 fL [facility] Platelet mean volume (Bld) [Entitic vol] 8.7 fL Low 9.0 - 12.7 fL [facility] Platelets (Bld) [#/Vol] 273 10*3/uL 140 - 440 10*3/uL [facility] RBC (Bld) [#/Vol] 3.26 10*6/uL Low 4.40 - 5.9 0 10*6/uL [facility] WBC (Bld) [#/Vol] 10 10*3/uL 3.6 - 10.7 10*3/uL [facility] HEMOGLOBIN AND HEMATOCRIT, B LOODon 01-27-2025 Hematocrit (Bld) [Volume fraction] 26.3 % Low 40.0-52.0 [facility] Comment on above: Performed By: #### L AB753 ####Specialized Language Instructor: DOMENICA JARA ([id number])[facility] ([facility])[address] [place] [address] Hemoglobin (Bld) [Mass/Vol] 8.4 g/dL Low 13.0-18.0 [facility] Comment on above: Performed By: #### L AB753 ####Specialized Language Instructor: DOMENICA JARA ([id number])[facility] ([address] Hemoglobin (Bld) [Mass/Vol]o n 01-27-2025 Hematocrit (Bld) [Volume fraction] 26.3 % Low 40.0 - 52.0 % [facility] Interpretation and review of laboratory results Abnormal [facility] Laboratory - Chemistry and C hemistry - challengeon 01-27-2025 Glucose [Mass/Vol] 102 mg/dL High 70 - 100 mg/dL [facility] Glucose [Mass/Vol] 127 mg/dL High 70 - 100 mg/dL [facility] Glucose [Mass/Vol] 87 mg/dL 70 - 100 mg/dL [facility] Magnesium [Mass/Vol] 1.9 mg/dL 1.6 - 2 .6 mg/dL [facility] Laboratory - Coagulationon 0 01-27-2025 PT Coag (Bld) [Time] 19.9 s High 9.0 - 12.0 s [facility] Laboratory - Hematology and Cell countson 01-27-2025 Hemoglobin (Bld) [Mass/Vol] 8.4 g/dL Low 13.0 - 18.0 g/dL [facility] MAGNESIUMon 01-27-2025 Magnesium [Mass/Vol] 1.9 mg/dL Normal 1.6-2.6 [facility] Comment on above: Result Comment: ARPAN R COMMENTS:Higher values can be expected in females during menses. Performed By: #### L AB15, [id number], [id number] ####Specialized Language Instructor: DOMENICA JARA ([phone])[facility])[address] [place] [address] Magnesium [Mass/Vol]on 01-27 [facility] No Panel Informationon 01-27 Interpretation and review of laboratory results Abnormal [facility] Interpretation and review of laboratory results Abnormal [facility] Interpretation and review of laboratory results Normal [facility] Interpretation and review of laboratory results Abnormal [facility] Interpretation and review of laboratory results Normal [facility] Nursing Noteon 01-27-2025 Nursing Note Nurse to nurse report called to . Pt in for transport. Normal [facility] PHOSPHORUSon 01-27-2025 Phosphate [Mass/Vol] 3.4 mg/dL Normal 2.3-4.7 [facility] Comment on above: Performed By: #### L AB15, BTI058, ZRM528 ####Specialized Language Instructor: DOMENICA JARA ([phone])[facility] ([facility])[address] [place] [address] PROTHROMBIN TIMEon INR Coag (PPP) [Relative time] 1.9 {INR} High 0.9-1.1 [facility] Comment on above: Result Comment: Vaughn mmended [...] Myocardial Infarction Performed By: #### L AB320, [id number] ####Specialized Language Instructor: DOMENICA JARA ([id number])[facility] ([facility])[address] [place] [address] PT Coag (PPP) [Time] 19.9 s High 9.0-12.0 [facility] Comment on above: Performed By: #### L AB320, [id number] ####Specialized Language Instructor: DOMENICA JAAR ([id number])[facility] ([facility])[address] [place] [address] PT Coag (Bld) [Time]on 01-27 INR Coag (PPP) [Relative time] 1.9 {INR} High 0.9 - 1.1 [facility] Phosphate [Moles/Vol]on Phosphate [Mass/Vol] 3.4 mg/dL 2.3 - 4 .7 mg/dL [facility] Progress Noteon 01-27-2025 Progress Note Normal [facility] Normal [facility] Progress Note Normal [facility] aPTT Coag (Bld) [Time]on aPTT Coag (PPP) [Time] 47.9 s High 20.0 - 30.5 s [facility] Interpretation and review of laboratory results Abnormal [facility] aPTT Coag (PPP) [Time] 49.6 s High 20.0 - 30.5 s [facility] Interpretation and review of laboratory results Abnormal [facility] aPTT Coag (PPP) [Time] 45 s High 20.0 - 30.5 s [facility] Interpretation and review of laboratory results Abnormal [facility] aPTT Coag (PPP) [Time] 40.2 s High 20.0 - 30.5 s [facility] 30on 01-26-2025 30 Normal [facility] [id number] 01-26-2025 [id number] Dialysis placed to [facility] via [facility] per [facility] request. Normal [facility] [phone] Normal [facility] APTTon 01-26-2025 aPTT Coag (Bld) [Time] 41.6 s High 20.0-30.5 [facility] Comment on above: Result Comment: ARPAN Kaplan COMMENTS:NOTE: The therapeutic time for Heparin anticoagulation, based on Xa activity inhibition, is an APTT of 46-80 seconds. Performed By: #### L AB325 ####Specialized Language Instructor: DOMENICA JARA ([id number])[address] aPTT Coag (Bld) [Time] s Critically high 20.0-30. 5 [facility] Comment on above: Result Comment: ARPAN Kaplan COMMENTS:NOTE: The therapeutic time for Heparin anticoagulation, based on Xa activity inhibition, is an APTT of 46-80 seconds. Performed By: #### L AB325 ####Specialized Language Instructor: DOMENICA JARA ([id number])[address] aPTT Coag (Bld) [Time] 47.0 s High 20.0-30.5 [facility] Comment on above: Result Comment: ARPAN Kaplan COMMENTS:NOTE: The therapeutic time for Heparin anticoagulation, based on Xa activity inhibition, is an APTT of 46-80 seconds. Performed By: #### L AB320, [id number] ####Specialized Language Instructor: DOMENICA JARA ([id number])[facility] ([facility])[address] [place] [address] BASIC METABOLIC PANELon 05-0 Anion gap [Moles/Vol] 16 mmol/L High 3-13 [facility] Comment on above: Performed By: #### L AB103, [id number], LAB15 ####Specialized Language Instructor: DOMENICA JARA ([id number])[address] Calcium [Mass/Vol] 9.0 mg/dL Normal 8.4-10.2 [facility] Comment on above: Performed By: #### L AB103, BUS248, LAB15 ####Specialized Language Instructor: DOMENICA JARA ([id number])[facility] [place] [address] Chloride [Moles/Vol] 100 mmol/L Normal 98-107 [facility] Comment on above: Performed By: #### L AB103, BMH903, LAB15 ####Specialized Language Instructor: DOMENICA JARA ([id number])[facility] [place] [address] CO2 [Moles/Vol] 20 mmol/L Low 22-29 [facility] Comment on above: Performed By: #### L AB103, [id number], LAB15 ####Specialized Language Instructor: DOMENICA JARA ([id number])[facility] ([facility])[address] [place] [address] Creatinine [Mass/Vol] 3.37 mg/dL High 0.72-1.25 [facility] Comment on above: Performed By: #### L AB103, MTI685, LAB15 ####Specialized Language Instructor: DOMENICA JARA ([id number])[facility] ([facility])[address] [place] [address] GLOMERULAR FILTRATION RATE ML/MIN/1.73 SQ M.PREDICTED 20.2 mL/min/1.73m*2 Low >60.0 [facility] Comment on above: Result Comment: Calc ulation based on the Chronic Kidney Disease Epidemiology Collaboration (CKD-EPI) equation refit without adjustment for race Performed By: #### L AB103, [id number], LAB15 ####Specialized Language Instructor: DOMENICA JARA ([id number])[facility] ([facility])[address] [place] [address] [place] Glucose [Mass/Vol] 75 mg/dL Normal 74-100 [facility] Comment on above: Performed By: #### L AB103, ASL001, LAB15 ####Specialized Language Instructor: DOMENICA JARA ([id number])[facility])[address] [place] [address] [place] Potassium [Moles/Vol] 5.1 mmol/L Normal 3.5-5.1 [facility] Comment on above: Result Comment: TCSi gnificant interference from hemolysis. Result integrity compromised. Interpret with caution. Performed By: #### L AB103, [id number], LAB15 ####Specialized Language Instructor: DOMENICA JARA ([phone])[facility] [place] [address] Sodium [Moles/Vol] 136 mmol/L Normal 136-145 [facility] Comment on above: Performed By: #### L AB103, RCK395, LAB15 ####Specialized Language Instructor: DOMENICA JARA ([id number])[facility] ([facility])[address] [place] [address] Urea nitrogen [Mass/Vol] 19 mg/dL Normal 9-23 [facility] Comment on above: Performed By: #### L AB103, ENM098, LAB15 ####Specialized Language Instructor: DOMENICA JARA ([id number])[facility] [place] [address] Basic metabolic 1998 panelon 01-26-2025 Anion gap [Moles/Vol] 16 mmol/L High 3 - 13 mmol/L [facility] Calcium [Mass/Vol] 9 mg/dL 8.4 - 10. 2 mg/dL [facility] Chloride [Moles/Vol] 100 mmol/L 98 - 10 7 mmol/L [facility] CO2 [Moles/Vol] 20 mmol/L Low 22 - 29 mmol/L [facility] Creatinine [Mass/Vol] 3.37 mg/dL High 0.72 - 1.25 mg/dL [facility] GFR/1.73 sq M.predicted (S/P/Bld) [Vol rate/Area] 20.2 mL/min Low - PINF [facility] Glucose [Mass/Vol] 75 mg/dL 74 - 100 mg/dL [facility] Interpretation and review of laboratory results Abnormal [facility] Potassium [Moles/Vol] 5.1 mmol/L 3.5 - 5.1 mmol/L [facility] Sodium [Moles/Vol] 136 mmol/L 136 - 145 mmol/L [facility] Urea nitrogen [Mass/Vol] 19 mg/dL 9 - 23 mg/d L [facility] CBC (HEMOGRAM)on 01-26-2025 Erythrocyte distribution width (RBC) [Ratio] 19.3 % High 11.5-15.0 [facility] Comment on above: Performed By: #### L [id number] ####Specialized Language Instructor: DOMENICA JARA ([phone])[facility] ([facility])[address] [place] [address] Hematocrit (Bld) [Volume fraction] 21.0 % Low 40.0-52.0 [facility] Comment on above: Performed By: #### L AB294 ####Specialized Language Instructor: DOMENICA JARA ([phone])[facility])[address] [place] [address] Hemoglobin (Bld) [Mass/Vol] 6.7 g/dL Critically low 13.0-18.0 [facility] Comment on above: Performed By: #### L AB294 ####Specialized Language Instructor: DOMENICA JARA ([id number])[facility] ([facility])[address] [place] [address] MCH (RBC) [Entitic mass] 27.8 pg Normal 26.0-34.0 [facility] Comment on above: Performed By: #### L AB294 ####Specialized Language Instructor: DOMENICA JARA ([phone])[facility])[address] [place] [address] MCHC 31.9 % Normal 30.5-36.0 [facility] Comment on above: Performed By: #### L AB294 ####Specialized Language Instructor: DOMENICA JARA ([id number])[facility] ([facility])[address] [place] [address] MCV (RBC) [Entitic vol] 87.1 fL Normal 77.0-99.0 S [facility] Comment on above: Performed By: #### L AB294 ####Specialized Language Instructor: DOMENICA JARA ([phone])[facility])[address] [place] [address] [place] Platelet mean volume (Bld) [Entitic vol] 10.0 fL Normal 9.0-12.7 [facility] Comment on above: Performed By: #### L AB294 ####Specialized Language Instructor: DOMENICA JARA ([id number])[facility] ([facility])[address] [place] [address] Platelets (Bld) [#/Vol] 265 10*3/uL Normal 140-440 [facility] Comment on above: Performed By: #### L AB294 ####Specialized Language Instructor: DOMENICA JARA ([id number])[facility] ([facility])[address] [place] [address] RBC (Bld) [#/Vol] 2.41 10*6/uL Low 4.40-5.90 [facility] Comment on above: Performed By: #### L AB294 ####Specialized Language Instructor: DOMENICA JARA ([phone])[facility] ([facility])[address] [place] [address] WBC (Bld) [#/Vol] 8.7 10*3/uL Normal 3.6-10.7 [facility] Comment on above: Performed By: #### L AB294 ####Specialized Language Instructor: DOMENICA JARA ([id number])[facility] ([facility])[address] [place] [address] CBC panel Auto (Bld)Ordered By: Brandy Ross on 01-26-2025 Erythrocyte distribution width (RBC) [Ratio] 19.3 % High 11.5 - 15.0 % [facility] Hematocrit (Bld) [Volume fraction] 21 % Low 40.0 - 52.0 % [facility] Hemoglobin (Bld) [Mass/Vol] 6.7 g/dL Critically low 13.0 - 18.0 g/dL [facility] Interpretation and review of laboratory results Abnormal [facility] MCH (RBC) [Entitic mass] 27.8 pg 26. 0 - 34.0 pg [facility] MCHC (RBC) [Mass/Vol] 31.9 % 30.5 - 36.0 % [facility] MCV (RBC) [Entitic vol] 87.1 fL 77.0 - 99.0 fL [facility] Platelet mean volume (Bld) [Entitic vol] 10 fL 9.0 - 12.7 fL [facility] Platelets (Bld) [#/Vol] 265 10*3/uL 140 - 440 10*3/uL [facility] RBC (Bld) [#/Vol] 2.41 10*6/uL Low 4.40 - 5.9 0 10*6/uL [facility] WBC (Bld) [#/Vol] 8.7 10*3/uL 3.6 - 10.7 10*3/uL [facility] HBV surface Ab IA Qnon 01-26 [facility] HBV surface Ag IA Qlon 01-26 Interpretation and review of laboratory results Normal [facility] HEMOGLOBIN AND HEMATOCRIT, B LOODon 01-26-2025 Hematocrit (Bld) [Volume fraction] 27.9 % Low 40.0-52.0 [facility] Comment on above: Performed By: #### L [id number] ####Specialized Language Instructor: DOMENICA JARA ([phone])[facility])[address] [place] [address] Hemoglobin (Bld) [Mass/Vol] 9.0 g/dL Low 13.0-18.0 [facility] Comment on above: Performed By: #### L AB753 ####Specialized Language Instructor: DOMENICA JARA ([id number])[facility])[address] [place] [address] Hematocrit (Bld) [Volume fraction] 28.4 % Low 40.0-52.0 [facility] Comment on above: Performed By: #### L AB753 ####Specialized Language Instructor: DOMENICA JARA ([id number])[facility] ([facility])[address] [place] [address] Hemoglobin (Bld) [Mass/Vol] 8.9 g/dL Low 13.0-18.0 [facility] Comment on above: Performed By: #### L AB753 ####Specialized Language Instructor: DOMENICA JARA ([id number])[facility])[address] [place] [address] HEPATITIS B SURFACE ANTIBODY on 01-26-2025 HEPATITIS B VIRUS SURFACE AB <8.0 Normal [facility] Comment on above: Result Comment: ARPAN R COMMENTS:Interpretation:<8.0 Non-Reactive8.0-11.9 Equivocal>= 12.0 Ab DetectedNote: If an equivocal result is interpreted, an antibody status is unable to be determined. Collect new specimen if clinically indicated. Performed By: #### L AB472, [id number] ####Specialized Language Instructor: DOMENICA JARA ([id number])[facility] ([facility])[address] [place] [address] HEPATITIS B SURFACE ANTIGENo n 01-26-2025 HEPATITIS B VIRUS SURFACE AG Not detected Normal Not Detected [facility] Comment on above: Performed By: #### L AB472, [id number] ####Specialized Language Instructor: DOMENICA JARA ([id number])[facility] ([facility])[address] [place] [address] Hemoglobin (Bld) [Mass/Vol]o n 01-26-2025 Hematocrit (Bld) [Volume fraction] 27.9 % Low 40.0 - 52.0 % [facility] Interpretation and review of laboratory results Abnormal [facility] Hematocrit (Bld) [Volume fraction] 28.4 % Low 40.0 - 52.0 % [facility] Interpretation and review of laboratory results Abnormal [facility] Laboratory - Chemistry and C hemistry - challengeon 01-26-2025 Magnesium [Mass/Vol] 2 mg/dL 1.6 - 2 .6 mg/dL [facility] Laboratory - Coagulationon 0 01-26-2025 PT Coag (Bld) [Time] 18.3 s High 9.0 - 12.0 s [facility] Laboratory - Hematology and Cell countson 01-26-2025 Hemoglobin (Bld) [Mass/Vol] 9 g/dL Low 13.0 - 18.0 g/dL [facility] Hemoglobin (Bld) [Mass/Vol] 8.9 g/dL Low 13.0 - 18.0 g/dL [facility] Laboratory - Microbiology an d Antimicrobial susceptibilityon 01-26-2025 HBV surface Ab IA Qn mIU/mL [facility] HBV surface Ag IA Ql Not detected Not Detected [facility] MAGNESIUMon 01-26-2025 Magnesium [Mass/Vol] 2.0 mg/dL Normal 1.6-2.6 [facility] Comment on above: Result Comment: ARPAN R COMMENTS:Higher values can be expected in females during menses. Performed By: #### L AB103, [id number], LAB15 ####Specialized Language Instructor: DOMENICA JARA ([phone])[facility] ([facility])[address] [place] [address] Magnesium [Mass/Vol]on 01-26 Interpretation and review of laboratory results Normal [facility] No Panel Informationon 01-26 [facility] Blood Expiration Date [id number] S [facility] Crossmatch interpretation COMP [facility] Dispense Status Transfused [facility] Product Blood Type 9500 [facility] PRODUCT CODE [id number] [facility] Unit ABO O [facility] Unit Number [id number] [facility] alth Unit RH Negative [facility] Unit Volume 300 mL [facility] Interpretation and review of laboratory results Abnormal [facility] Nursing Noteon 01-26-2025 Nursing Note Normal [facility] Nursing Note APTT >139, resident notified. Normal [facility] PHOSPHORUSon 01-26-2025 Phosphate [Mass/Vol] 5.3 mg/dL High 2.3-4.7 [facility] Comment on above: Result Comment: TCPo tential interference from hemolysis Performed By: #### L AB103, JPP001, LAB15 ####Specialized Language Instructor: DOMENICA JARA ([id number])[facility] ([facility])[address] [place] [address] PROTHROMBIN TIMEon INR Coag (PPP) [Relative time] 1.8 {INR} High 0.9-1.1 [facility] Comment on above: Result Comment: Vaughn mmended [...] Myocardial Infarction Performed By: #### L AB320, [id number] ####Specialized Language Instructor: DOMENICA JARA ([id number])[facility] ([facility])[address] [place] [address] PT Coag (PPP) [Time] 18.3 s High 9.0-12.0 [facility] Comment on above: Performed By: #### L AB320, [id number] ####Specialized Language Instructor: DOMENICA JARA ([id number])[facility] ([facility])[address] [place] [address] PT Coag (Bld) [Time]on 01-26 INR Coag (PPP) [Relative time] 1.8 {INR} High 0.9 - 1.1 [facility] Phosphate [Moles/Vol]on Interpretation and review of laboratory results Abnormal [facility] Phosphate [Mass/Vol] 5.3 mg/dL High 2.3 - 4 .7 mg/dL [facility] Progress Noteon 01-26-2025 Progress Note PHYSICAL THERAPY [facility] Name/MRN: Jair Snyder ([id number]) Date: 01/26/2025 Attempt Note Pt on iHD. Will re-attempt as able. Chantal Sucaldito, PT Normal [facility] Progress Note Normal [facility] Progress Note Speech-Language Pathology Pt is a hold at this time, as he is receiving dialysis. Will re-attempt next date as schedule permits. Treva Mccallum MS. [facility]-PRACTICE DIRECTOR Normal [facility] Progress Note Normal [facility] Progress Note Normal [facility] Progress [facility] Normal [facility] Progress Note Normal [facility] Progress Note Normal [facility] aPTT Coag (Bld) [Time]on aPTT Coag (PPP) [Time] 41.6 s High 20.0 - 30.5 s [facility] Interpretation and review of laboratory results Abnormal [facility] aPTT Coag (PPP) [Time] 47 s High 20.0 - 30.5 s [facility] aPTT Coag (Bld) [Time]Ordere d By: Alan Santos on 01-26-2025 aPTT Coag (PPP) [Time] s Critically high 20.0 - 3 0.5 s [facility] Interpretation and review of laboratory results Abnormal [facility] 30on 01-25-2025 30 Normal [facility] 30 Normal [facility] [id number] 01-25-2025 [id number] Normal [facility] [id number] OPAT placed to [facility] via [employer] per TCC request. Normal [facility] [phone] Normal [facility] APTTon 01-25-2025 aPTT Coag (Bld) [Time] s Critically high 20.0-30. 5 [facility] Comment on above: Result Comment: ARPAN Kaplan COMMENTS:NOTE: The therapeutic time for Heparin anticoagulation, based on Xa activity inhibition, is an APTT of 46-80 seconds. Performed By: #### L AB325 ####Specialized Language Instructor: DOMENICA JARA ([id number])[address] aPTT Coag (Bld) [Time] 83.1 s High 20.0-30.5 [facility] Comment on above: Result Comment: ARPAN Kaplan COMMENTS:NOTE: The therapeutic time for Heparin anticoagulation, based on Xa activity inhibition, is an APTT of 46-80 seconds. Performed By: #### L AB325, [id number] ####Specialized Language Instructor: DOMENICA JARA ([id number])[address] BASIC METABOLIC PANELon Anion gap [Moles/Vol] 16 mmol/L High 3-13 [facility] Comment on above: Performed By: #### L AB103, LAB15, [id number] ####Specialized Language Instructor: DOMENICA [id number])[facility] [place] [address] Calcium [Mass/Vol] 10.1 mg/dL Normal 8.4-10.2 [facility] Comment on above: Performed By: #### L AB103, LAB15, [id number] ####Specialized Language Instructor: DOMENICA JARA ([id number])[facility] [place] [address] Chloride [Moles/Vol] 98 mmol/L Normal 98-107 [facility] Comment on above: Performed By: #### L AB103, LAB15, OIO994 ####Specialized Language Instructor: DOMENICA JARA ([id number])[facility] [place] [address] CO2 [Moles/Vol] 24 mmol/L Normal 22-29 [facility] Comment on above: Performed By: #### T[place] AB103, LAB15, FMN590 ####Specialized Language Instructor: DOMENICA JARA ([id number])[facility] [place] [address] Creatinine [Mass/Vol] 2.54 mg/dL High 0.72-1.25 [facility] Comment on above: Performed By: #### L AB103, LAB15, ULN859 ####Specialized Language Instructor: DOMENICA JARA ([id number])[facility] ([facility])[address] [place] [address] [place] GLOMERULAR FILTRATION RATE ML/MIN/1.73 SQ M.PREDICTED 28.3 mL/min/1.73m*2 Low >60.0 [facility] Comment on above: Result Comment: Calc ulation based on the Chronic Kidney Disease Epidemiology Collaboration (CKD-EPI) equation refit without adjustment for race Performed By: #### L AB103, LAB15, [id number] ####Specialized Language Instructor: DOMENICA JARA ([id number])[facility] [place] [address] [place] Glucose [Mass/Vol] 74 mg/dL Normal 74-100 [facility] Comment on above: Performed By: #### L AB103, LAB15, EBB223 ####Specialized Language Instructor: DOMENICA JARA ([id number])[facility])[address] [place] [address] Potassium [Moles/Vol] 3.9 mmol/L Normal 3.5-5.1 [facility] Comment on above: Result Comment: [facility] potassium values may be up to 0.5 mmol/L lower than serum values. Performed By: #### L AB103, LAB15, CDK485 ####Specialized Language Instructor: DOMENICA JARA ([id number])[facility] ([facility])[address] [place] [address] Sodium [Moles/Vol] 138 mmol/L Normal 136-145 [facility] Comment on above: Performed By: #### L AB103, LAB15, QVO993 ####Specialized Language Instructor: DOEMNICA JARA ([id number])[facility])[address] [place] [address] Urea nitrogen [Mass/Vol] 15 mg/dL Normal 9-23 [facility] Comment on above: Performed By: #### L AB103, LAB15, [id number] ####Specialized Language Instructor: DOMENICA JARA ([id number])[facility])[address] [place] [address] BLOOD TYPE AND SCREEN GELon 01-25-2025 ABO GROUPING O Normal [facility] Comment on above: Performed By: #### L AB276 ####Specialized Language Instructor: DOMENICA JARA ([id number])[facility] ([facility])[address] [place] [address] RH TYPE IN BLOOD Negative Normal [facility] Comment on above: Performed By: #### L AB276 ####Specialized Language Instructor: DOMENICA JARA ([id number])[facility] ([facility])[address] [place] [address] Basic metabolic 1998 panelon 01-25-2025 Anion gap [Moles/Vol] 16 mmol/L High 3 - 13 mmol/L [facility] Calcium [Mass/Vol] 10.1 mg/dL 8.4 - 10. 2 mg/dL [facility] Chloride [Moles/Vol] 98 mmol/L 98 - 10 7 mmol/L [facility] CO2 [Moles/Vol] 24 mmol/L 22 - 29 mmol/L [facility] Creatinine [Mass/Vol] 2.54 mg/dL High 0.72 - 1.25 mg/dL [facility] GFR/1.73 sq M.predicted (S/P/Bld) [Vol rate/Area] 28.3 mL/min Low - PINF [facility] Glucose [Mass/Vol] 74 mg/dL 74 - 100 mg/dL [facility] Interpretation and review of laboratory results Abnormal [facility] Potassium [Moles/Vol] 3.9 mmol/L 3.5 - 5.1 mmol/L [facility] Sodium [Moles/Vol] 138 mmol/L 136 - 145 mmol/L [facility] Urea nitrogen [Mass/Vol] 15 mg/dL 9 - 23 mg/d L [facility] Blood type and Crossmatch pa freida (Bld)on 01-25-2025 ABO group Nom (Bld) O [facility] Blood group antibody screen GEL Ql Negative [facility] D Ag Ql (RBC) [facility] CBC (HEMOGRAM)on 01-25-2025 Erythrocyte distribution width (RBC) [Ratio] 19.2 % High 11.5-15.0 [facility] Comment on above: Performed By: #### L AB294 ####Specialized Language Instructor: DOMENICA JARA ([id number])[address] Hematocrit (Bld) [Volume fraction] 22.5 % Low 40.0-52.0 [facility] Comment on above: Performed By: #### L AB294 ####Specialized Language Instructor: DOMENICA [id number])[address] Hemoglobin (Bld) [Mass/Vol] 7.0 g/dL Low 13.0-18.0 [facility] Comment on above: Performed By: #### L AB294 ####Specialized Language Instructor: DOMENICA [id number])[facility] ([facility])[address] [place] [address] MCH (RBC) [Entitic mass] 27.6 pg Normal 26.0-34.0 [facility] Comment on above: Performed By: #### L AB294 ####Specialized Language Instructor: DOMENICA JARA ([id number])[facility] ([facility])[address] [place] [address] MCHC 31.1 % Normal 30.5-36.0 [facility] Comment on above: Performed By: #### L AB294 ####Specialized Language Instructor: DOMENICA JARA ([id number])[facility] ([facility])[address] [place] [address] MCV (RBC) [Entitic vol] 88.6 fL Normal 77.0-99.0 S [facility] Comment on above: Performed By: #### L AB294 ####Specialized Language Instructor: DOMENICA JARA ([id number])[facility] ([facility])[address] [place] [address] Platelet mean volume (Bld) [Entitic vol] 8.8 fL Low 9.0-12.7 [facility] Comment on above: Performed By: #### L AB294 ####Specialized Language Instructor: DOMENICA JARA ([id number])[facility] ([facility])[address] [place] [address] Platelets (Bld) [#/Vol] 285 10*3/uL Normal 140-440 [facility] Comment on above: Performed By: #### L AB294 ####Specialized Language Instructor: DOMENICA JARA ([id number])[facility] ([facility])[address] [place] [address] RBC (Bld) [#/Vol] 2.54 10*6/uL Low 4.40-5.90 [facility] Comment on above: Performed By: #### L AB294 ####Specialized Language Instructor: DOMENICA JARA ([id number])[facility] ([facility])[address] [place] [address] WBC (Bld) [#/Vol] 10.2 10*3/uL Normal 3.6-10.7 [facility] Comment on above: Performed By: #### L AB294 ####Specialized Language Instructor: DOMENICA JARA ([id number])[facility] ([facility])[address] [place] [address] CBC panel Auto (Bld)on 01-25 Erythrocyte distribution width (RBC) [Ratio] 19.2 % High 11.5 - 15.0 % [facility] Hematocrit (Bld) [Volume fraction] 22.5 % Low 40.0 - 52.0 % [facility] Hemoglobin (Bld) [Mass/Vol] 7 g/dL Low 13.0 - 18.0 g/dL [facility] Interpretation and review of laboratory results Abnormal [facility] MCH (RBC) [Entitic mass] 27.6 pg 26. 0 - 34.0 pg [facility] MCHC (RBC) [Mass/Vol] 31.1 % 30.5 - 36.0 % [facility] MCV (RBC) [Entitic vol] 88.6 fL 77.0 - 99.0 fL [facility] Platelet mean volume (Bld) [Entitic vol] 8.8 fL Low 9.0 - 12.7 fL [facility] Platelets (Bld) [#/Vol] 285 10*3/uL 140 - 440 10*3/uL [facility] RBC (Bld) [#/Vol] 2.54 10*6/uL Low 4.40 - 5.9 0 10*6/uL [facility] WBC (Bld) [#/Vol] 10.2 10*3/uL 3.6 - 10.7 10*3/uL [facility] [place] MODIFIED BARIUM WITH VIDE O AND SPEECHon 01-25-2025 [place] MODIFIED BARIUM WITH VIDEO AND SPEECH Normal [facility] HEMOGLOBIN AND HEMATOCRIT, B LOODon 01-25-2025 Hematocrit (Bld) [Volume fraction] 23.8 % Low 40.0-52.0 [facility] Comment on above: Performed By: #### L AB753 ####Specialized Language Instructor: DOMENICA JARA ([id number])[facility] ([facility])[address] [place] [address] Hemoglobin (Bld) [Mass/Vol] 7.6 g/dL Low 13.0-18.0 [facility] Comment on above: Performed By: #### L AB753 ####Specialized Language Instructor: DOMENICA JARA ([id number])[facility])[address] [place] [address] Hematocrit (Bld) [Volume fraction] 24.4 % Low 40.0-52.0 [facility] Comment on above: Performed By: #### L AB753 ####Specialized Language Instructor: DOMENICA JARA ([id number])[facility] ([facility])[address] [place] [address] Hemoglobin (Bld) [Mass/Vol] 7.7 g/dL Low 13.0-18.0 [facility] Comment on above: Performed By: #### L AB753 ####Specialized Language Instructor: DOMENICA JARA ([id number])[facility])[address] [place] [address] Hematocrit (Bld) [Volume fraction] 24.6 % Low 40.0-52.0 [facility] Comment on above: Performed By: #### L AB753 ####Specialized Language Instructor: DOMENICA JARA ([id number])[facility])[address] [place] [address] Hemoglobin (Bld) [Mass/Vol] 8.0 g/dL Low 13.0-18.0 [facility] Comment on above: Performed By: #### L AB753 ####Specialized Language Instructor: DOMENICA JARA ([id number])[facility])[address] [place] [address] [place] Hemoglobin (Bld) [Mass/Vol]o n 01-25-2025 Hematocrit (Bld) [Volume fraction] 23.8 % Low 40.0 - 52.0 % [facility] Interpretation and review of laboratory results Abnormal [facility] Hematocrit (Bld) [Volume fraction] 24.4 % Low 40.0 - 52.0 % [facility] Interpretation and review of laboratory results Abnormal [facility] Hematocrit (Bld) [Volume fraction] 24.6 % Low 40.0 - 52.0 % [facility] Interpretation and review of laboratory results Abnormal [facility] Hematocrit (Bld) [Volume fraction] 20.4 % Low 40.0 - 52.0 % [facility] Interpretation and review of laboratory results Abnormal [facility] Laboratory - Chemistry and C hemistry - challengeon 01-25-2025 Magnesium [Mass/Vol] 2.1 mg/dL 1.6 - 2 .6 mg/dL [facility] Laboratory - Coagulationon 0 01-25-2025 PT Coag (Bld) [Time] 17.4 s High 9.0 - 12.0 s [facility] PT Coag (Bld) [Time] 15.9 s High 9.0 - 12.0 s [facility] Laboratory - Hematology and Cell countson 01-25-2025 Hemoglobin (Bld) [Mass/Vol] 7.6 g/dL Low 13.0 - 18.0 g/dL [facility] Hemoglobin (Bld) [Mass/Vol] 7.7 g/dL Low 13.0 - 18.0 g/dL [facility] Hemoglobin (Bld) [Mass/Vol] 8 g/dL Low 13.0 - 18.0 g/dL [facility] Hemoglobin (Bld) [Mass/Vol] 6.3 g/dL Critically low 13.0 - 18.0 g/dL [facility] Laboratory - Microbiology an d Antimicrobial susceptibilityon 01-25-2025 A. baumannii DNA EMMANUEL+probe Ql (Unsp spec) Not detected Not Detected [facility] Laboratory - Microbiology an d Antimicrobial susceptibilityOrdered By: Petra Harris on 01-25-2025 C. auris ITS2 gene EMMANUEL+probe Ql (Unsp spec) Not detected Not Detected [facility] MAGNESIUMon 01-25-2025 Magnesium [Mass/Vol] 2.1 mg/dL Normal 1.6-2.6 [facility] Comment on above: Result Comment: ARPAN Kaplan COMMENTS:Higher values can be expected in females during menses. Performed By: #### L AB103, LAB15, NVB672 ####Specialized Language Instructor: DOMENICA JARA ([phone])[facility] ([facility])[address] [place] [address] Magnesium [Mass/Vol]on 01-25 [facility] No Panel Informationon 01-25 Interpretation and review of laboratory results Normal [facility] Blood Expiration Date [id number] [facility] Crossmatch interpretation COMP [facility] Dispense Status [facility] Product Blood Type 9500 [facility] PRODUCT CODE [id number] [facility] Unit ABO O [facility] Unit Number [id number] [facility] Unit RH Negative [facility] Unit Volume 300 mL [facility] Interpretation and review of laboratory results Normal [facility] No Panel InformationOrdered By: Petra Harris on 01-25-2025 Interpretation and review of laboratory results Normal [facility] PHOSPHORUSon 01-25-2025 Phosphate [Mass/Vol] 3.9 mg/dL Normal 2.3-4.7 [facility] Comment on above: Performed By: #### L AB103, LAB15, CYK576 ####Specialized Language Instructor: DOMENICA JARA ([id number])[address] PROTHROMBIN TIMEon INR Coag (PPP) [Relative time] 1.7 {INR} High 0.9-1.1 [facility] Comment on above: Result Comment: Vaughn mmended [...] Myocardial Infarction Performed By: #### L AB325, XTG386 ####Specialized Language Instructor: DOMENICA JARA ([id number])[facility] ([facility])[address] [place] [address] PT Coag (PPP) [Time] 17.4 s High 9.0-12.0 [facility] Comment on above: Performed By: #### L AB325, ENC737 ####Specialized Language Instructor: DOMENICA JARA ([id number])[address] PT Coag (Bld) [Time]on 01-25 INR Coag (PPP) [Relative time] 1.7 {INR} High 0.9 - 1.1 [facility] Interpretation and review of laboratory results Abnormal [facility] INR Coag (PPP) [Relative time] 1.5 {INR} High 0.9 - 1.1 [facility] Interpretation and review of laboratory results Abnormal [facility] Phosphate [Moles/Vol]on Phosphate [Mass/Vol] 3.9 mg/dL 2.3 - 4 .7 mg/dL [facility] Progress Noteon 01-25-2025 Progress Note [facility] Normal [facility] Progress Note Normal [facility] Progress Note Normal [facility] Progress Note Normal [facility] Progress Note Normal [facility] Progress Note Normal [facility] RF videography Hypopharynx a nd Esophagus Views for swallowing function W speech and W barium contrast Juan Carlos 01-25-2025 [facility] Radiology Study observation (narrative) [facility] RF videography Hypopharynx a nd Esophagus Views for swallowing function W speech and W barium contrast POOrdered By: Sulaiman Harp on 01-25-2025 [facility] Work Phone: aPTT Coag (Bld) [Time]on aPTT Coag (PPP) [Time] s Critically high 20.0 - 3 0.5 s [facility] Interpretation and review of laboratory results Abnormal [facility] aPTT Coag (PPP) [Time] 83.1 s High 20.0 - 30.5 s [facility] Interpretation and review of laboratory results Abnormal [facility] aPTT Coag (PPP) [Time] 47.3 s High 20.0 - 30.5 s [facility] Interpretation and review of laboratory results Abnormal [facility] 30on 01-24-2025 30 Normal [facility] 30 Normal [facility] [id number] 01-24-2025 [id number] Normal [facility] APTTon 01-24-2025 aPTT Coag (Bld) [Time] 47.3 s High 20.0-30.5 [facility] Comment on above: Result Comment: ARPAN Kaplan COMMENTS:NOTE: The therapeutic time for Heparin anticoagulation, based on Xa activity inhibition, is an APTT of 46-80 seconds. Performed By: #### L AB325 ####Specialized Language Instructor: DOMENICA JARA ([id number])[facility] ([facility])[address] [place] [address] aPTT Coag (Bld) [Time] 33.7 s High 20.0-30.5 [facility] Comment on above: Result Comment: ARPAN Kaplan COMMENTS:NOTE: The therapeutic time for Heparin anticoagulation, based on Xa activity inhibition, is an APTT of 46-80 seconds. Performed By: #### L AB320, DDR122 ####Specialized Language Instructor: DOMENICA JARA ([phone])[facility] ([facility])[address] [place] [address] BASIC METABOLIC PANELon 12-28 Anion gap [Moles/Vol] 12 mmol/L Normal 3-13 [facility] Comment on above: Performed By: #### L AB15 ####Specialized Language Instructor: DOMENICA JARA ([phone])[facility] ([facility])[address] [place] [address] [place] Calcium [Mass/Vol] 9.3 mg/dL Normal 8.4-10.2 [facility] Comment on above: Performed By: #### L AB15 ####Specialized Language Instructor: DOMENICA JARA ([id number])[facility] ([facility])[address] [place] [address] [place] Chloride [Moles/Vol] 100 mmol/L Normal 98-107 [facility] Comment on above: Performed By: #### L AB15 ####Specialized Language Instructor: DOMENICA JARA ([phone])[facility] [place] [address] CO2 [Moles/Vol] 26 mmol/L Normal 22-29 [facility] Comment on above: Performed By: #### L AB15 ####Specialized Language Instructor: DOMENICA JARA ([id number])[facility] ([facility])[address] [place] [address] Creatinine [Mass/Vol] 1.47 mg/dL High 0.72-1.25 [facility] Comment on above: Performed By: #### L AB15 ####Specialized Language Instructor: DOMENICA JARA ([phone])[facility])[address] [place] [address] GLOMERULAR FILTRATION RATE ML/MIN/1.73 SQ M.PREDICTED 54.6 mL/min/1.73m*2 Low >60.0 [facility] Comment on above: Result Comment: Calc ulation based on the Chronic Kidney Disease Epidemiology Collaboration (CKD-EPI) equation refit without adjustment for race Performed By: #### L AB15 ####Specialized Language Instructor: DOMENICA JARA ([id number])[facility] ([facility])[address] [place] [address] Glucose [Mass/Vol] 77 mg/dL Normal 74-100 [facility] Comment on above: Performed By: #### L AB15 ####Specialized Language Instructor: DOMENICA JARA ([phone])[facility])[address] [place] [address] Potassium [Moles/Vol] 3.5 mmol/L Normal 3.5-5.1 [facility] Comment on above: Result Comment: [facility] potassium values may be up to 0.5 mmol/L lower than serum values. Performed By: #### L AB15 ####Specialized Language Instructor: DOMENICA JARA ([phone])[facility])[address] [place] [address] Sodium [Moles/Vol] 138 mmol/L Normal 136-145 [facility] Comment on above: Performed By: #### L AB15 ####Specialized Language Instructor: DOMENICA JARA ([id number])[facility] [place] [address] Urea nitrogen [Mass/Vol] 9 mg/dL Normal 9-23 [facility] Comment on above: Performed By: #### L AB15 ####Specialized Language Instructor: DOMENICA JARA ([id number])[facility] ([facility])[address] [place] [address] Anion gap [Moles/Vol] 20 mmol/L High 3-13 [facility] Comment on above: Performed By: #### L FR0291, TQT763, LAB15, LSB984 ####Specialized Language Instructor: DOMENICA JARA ([phone])[facility] ([facility])[address] [place] [address] Calcium [Mass/Vol] 10.2 mg/dL Normal 8.4-10.2 [facility] Comment on above: Performed By: #### L MY8600, CGP735, LAB15, FMG055 ####Specialized Language Instructor: DOMENICA JARA ([id number])[facility] ([facility])[address] [place] [address] [place] Chloride [Moles/Vol] 98 mmol/L Normal 98-107 [facility] Comment on above: Performed By: #### L MM2120, RVN553, LAB15, XQX246 ####Specialized Language Instructor: DOMENICA JARA ([id number])[facility] ([facility])[address] [place] [address] [place] CO2 [Moles/Vol] 21 mmol/L Low 22-29 [facility] Comment on above: Performed By: #### L GR5748, BKY235, LAB15, RWC643 ####Specialized Language Instructor: DOMENICA JARA ([phone])[facility])[address] [place] [address] [place] Creatinine [Mass/Vol] 3.62 mg/dL High 0.72-1.25 [facility] Comment on above: Performed By: #### L HM9042, NUW243, LAB15, BWE031 ####Specialized Language Instructor: DOMENICA JARA ([id number])[facility])[address] [place] [address] GLOMERULAR FILTRATION RATE ML/MIN/1.73 SQ M.PREDICTED 18.5 mL/min/1.73m*2 Low >60.0 [facility] Comment on above: Result Comment: Calc ulation based on the Chronic Kidney Disease Epidemiology Collaboration (CKD-EPI) equation refit without adjustment for race Performed By: #### L FY3423, NWG953, LAB15, UOX528 ####Specialized Language Instructor: DOMENICA JARA ([phone])[facility])[address] [place] [address] Glucose [Mass/Vol] 74 mg/dL Normal 74-100 [facility] Comment on above: Performed By: #### L FB8641, RMR295, LAB15, JKA406 ####Specialized Language Instructor: DOMENICA JARA ([id number])[facility])[address] [place] [address] Potassium [Moles/Vol] 4.0 mmol/L Normal 3.5-5.1 [facility] Comment on above: Result Comment: [facility] potassium values may be up to 0.5 mmol/L lower than serum values. Performed By: #### L DI9739, ZXD869, LAB15, LPP488 ####Specialized Language Instructor: DOMENICA JARA ([phone])[facility] ([facility])[address] [place] [address] [place] Sodium [Moles/Vol] 139 mmol/L Normal 136-145 [facility] Comment on above: Performed By: #### L OJ2834, WZB625, LAB15, IAL211 ####Specialized Language Instructor: DOMENICA JARA ([id number])[facility])[address] [place] [address] [place] Urea nitrogen [Mass/Vol] 27 mg/dL High 9-23 [facility] Comment on above: Performed By: #### L SV7849, CEH998, LAB15, LDQ857 ####Specialized Language Instructor: DOMENICA JARA ([id number])[facility])[address] [place] [address] [place] BETA HYDROXYBUTYRATEon 01-24 BETA HYDROXYBUTYRATE 10.5 mg/dL High <=2.8 [facility] Comment on above: Performed By: #### L BX0721, VQD562, LAB15, QUV520 ####Specialized Language Instructor: DOMENICA JARA ([id number])[facility] ([facility])[address] Basic metabolic 1998 panelon 01-24-2025 Anion gap [Moles/Vol] 12 mmol/L 3 - 13 mmol/L [facility] Calcium [Mass/Vol] 9.3 mg/dL 8.4 - 10. 2 mg/dL [facility] Chloride [Moles/Vol] 100 mmol/L 98 - 10 7 mmol/L [facility] CO2 [Moles/Vol] 26 mmol/L 22 - 29 mmol/L [facility] Creatinine [Mass/Vol] 1.47 mg/dL High 0.72 - 1.25 mg/dL [facility] GFR/1.73 sq M.predicted (S/P/Bld) [Vol rate/Area] 54.6 mL/min Low - PINF [facility] Glucose [Mass/Vol] 77 mg/dL 74 - 100 mg/dL [facility] Interpretation and review of laboratory results Abnormal [facility] Potassium [Moles/Vol] 3.5 mmol/L 3.5 - 5.1 mmol/L [facility] Sodium [Moles/Vol] 138 mmol/L 136 - 145 mmol/L [facility] Urea nitrogen [Mass/Vol] 9 mg/dL 9 - 23 mg/d L [facility] Anion gap [Moles/Vol] 20 mmol/L High 3 - 13 mmol/L [facility] Calcium [Mass/Vol] 10.2 mg/dL 8.4 - 10. 2 mg/dL [facility] Chloride [Moles/Vol] 98 mmol/L 98 - 10 7 mmol/L [facility] CO2 [Moles/Vol] 21 mmol/L Low 22 - 29 mmol/L [facility] Creatinine [Mass/Vol] 3.62 mg/dL High 0.72 - 1.25 mg/dL [facility] GFR/1.73 sq M.predicted (S/P/Bld) [Vol rate/Area] 18.5 mL/min Low - PINF [facility] Glucose [Mass/Vol] 74 mg/dL 74 - 100 mg/dL [facility] Potassium [Moles/Vol] 4 mmol/L 3.5 - 5.1 mmol/L [facility] Sodium [Moles/Vol] 139 mmol/L 136 - 145 mmol/L [facility] Urea nitrogen [Mass/Vol] 27 mg/dL High 9 - 23 mg/d L [facility] CBC (HEMOGRAM)on 01-24-2025 Erythrocyte distribution width (RBC) [Ratio] 19.4 % High 11.5-15.0 [facility] Comment on above: Performed By: #### L AB294 ####Specialized Language Instructor: DOMENICA JARA ([id number])[address] Hematocrit (Bld) [Volume fraction] 27.0 % Low 40.0-52.0 [facility] Comment on above: Performed By: #### L AB294 ####Specialized Language Instructor: DOMENICA JARA ([id number])[facility])[address] [place] [address] Hemoglobin (Bld) [Mass/Vol] 8.0 g/dL Low 13.0-18.0 [facility] Comment on above: Performed By: #### L AB294 ####Specialized Language Instructor: DOMENICA JARA ([id number])[facility])[address] [place] [address] MCH (RBC) [Entitic mass] 27.9 pg Normal 26.0-34.0 [facility] Comment on above: Performed By: #### L AB294 ####Specialized Language Instructor: DOMENICA JARA ([id number])[facility])[address] [place] [address] MCHC 29.6 % Low 30.5-36.0 [facility] Comment on above: Performed By: #### L AB294 ####Specialized Language Instructor: DOMENICA JARA ([phone])[facility])[address] [place] [address] MCV (RBC) [Entitic vol] 94.1 fL Normal 77.0-99.0 S [facility] Comment on above: Performed By: #### L AB294 ####Specialized Language Instructor: DOMENICA JARA ([id number])[facility] ([facility])[address] [place] [address] Platelet mean volume (Bld) [Entitic vol] 9.2 fL Normal 9.0-12.7 [facility] Comment on above: Performed By: #### L AB294 ####Specialized Language Instructor: DOMENICA JARA ([id number])[facility] ([facility])[address] [place] [address] Platelets (Bld) [#/Vol] 355 10*3/uL Normal 140-440 [facility] Comment on above: Performed By: #### L AB294 ####Specialized Language Instructor: DOMENICA JARA ([id number])[facility] ([facility])[address] [place] [address] RBC (Bld) [#/Vol] 2.87 10*6/uL Low 4.40-5.90 [facility] Comment on above: Performed By: #### L AB294 ####Specialized Language Instructor: DOMENICA JARA ([id number])[facility] ([facility])[address] [place] [address] WBC (Bld) [#/Vol] 11.5 10*3/uL High 3.6-10.7 [facility] Comment on above: Performed By: #### L AB294 ####Specialized Language Instructor: DOMENICA JARA ([id number])[facility] ([facility])[address] [place] [address] CBC panel Auto (Bld)Ordered By: Liseth Granado on 01-24-2025 Erythrocyte distribution width (RBC) [Ratio] 19.4 % High 11.5 - 15.0 % [facility] Hematocrit (Bld) [Volume fraction] 27 % Low 40.0 - 52.0 % [facility] Hemoglobin (Bld) [Mass/Vol] 8 g/dL Low 13.0 - 18.0 g/dL [facility] Interpretation and review of laboratory results Abnormal [facility] MCH (RBC) [Entitic mass] 27.9 pg 26. 0 - 34.0 pg [facility] MCHC (RBC) [Mass/Vol] 29.6 % Low 30.5 - 36.0 % [facility] MCV (RBC) [Entitic vol] 94.1 fL 77.0 - 99.0 fL [facility] Platelet mean volume (Bld) [Entitic vol] 9.2 fL 9.0 - 12.7 fL [facility] Platelets (Bld) [#/Vol] 355 10*3/uL 140 - 440 10*3/uL [facility] RBC (Bld) [#/Vol] 2.87 10*6/uL Low 4.40 - 5.9 0 10*6/uL [facility] WBC (Bld) [#/Vol] 11.5 10*3/uL High 3.6 - 10.7 10*3/uL [facility] HEMOGLOBIN AND HEMATOCRIT, B Ankita 01-24-2025 Hematocrit (Bld) [Volume fraction] 20.4 % Low 40.0-52.0 [facility] Comment on above: Performed By: #### L AB753 ####Specialized Language Instructor: DOMENICA JARA ([id number])[address] Hemoglobin (Bld) [Mass/Vol] 6.3 g/dL Critically low 13.0-18.0 [facility] Comment on above: Performed By: #### L AB753 ####Specialized Language Instructor: DOMENICA JARA ([id number])[facility])[address] [place] [address] Hematocrit (Bld) [Volume fraction] 23.0 % Low 40.0-52.0 [facility] Comment on above: Performed By: #### L AB753 ####Specialized Language Instructor: DOMENICA JARA ([id number])[facility])[address] [place] [address] Hemoglobin (Bld) [Mass/Vol] 7.3 g/dL Low 13.0-18.0 [facility] Comment on above: Performed By: #### L AB753 ####Specialized Language Instructor: DOMENICA JARA ([id number])[facility] ([facility])[address] [place] [address] Hemoglobin (Bld) [Mass/Vol]o n 01-24-2025 Hematocrit (Bld) [Volume fraction] 23 % Low 40.0 - 52.0 % [facility] Interpretation and review of laboratory results Abnormal [facility] LACTIC ACID WITH REFLEXon Lactate [Moles/Vol] 0.9 mmol/L Normal 0.5-2.2 [facility] Comment on above: Performed By: #### L [id number] ####Specialized Language Instructor: DOMENICA JARA ([id number])[facility] [place] [address] Laboratory - Chemistry and C hemistry - challengeon 01-24-2025 Lactate [Moles/Vol] 0.9 mmol/L 0.5 - 2. 2 mmol/L [facility] Laboratory - Chemistry and C hemistry - challengeOrdered By: Farhat Simons on 01-24-2025 Beta hydroxybutyrate [Mass/Vol] 10.5 mg/dL High NINF - 2.8 mg/dL [facility] Laboratory - Chemistry and C hemistry - challengeOrdered By: Anu Graham on 01-24-2025 Magnesium [Mass/Vol] 2.3 mg/dL 1.6 - 2 .6 mg/dL [facility] Laboratory - Coagulationon 0 01-24-2025 PT Coag (Bld) [Time] 15.1 s High 9.0 - 12.0 s [facility] PT Coag (Bld) [Time] 15.6 s High 9.0 - 12.0 s [facility] Laboratory - Hematology and Cell countson 01-24-2025 Hemoglobin (Bld) [Mass/Vol] 7.3 g/dL Low 13.0 - 18.0 g/dL [facility] MAGNESIUMon 01-24-2025 Magnesium [Mass/Vol] 2.3 mg/dL Normal 1.6-2.6 [facility] Comment on above: Result Comment: ARPAN Kaplan COMMENTS:Higher values can be expected in females during menses. Performed By: #### L [id number], KZA452, LAB15, CCP394 ####Specialized Language Instructor: DOMENICA JARA ([phone])[facility])[address] [place] [address] Magnesium [Mass/Vol]Ordered By: Anu Graham on 01-24-2025 Interpretation and review of laboratory results Normal [facility] No Panel Informationon 01-24 Interpretation and review of laboratory results Abnormal [facility] Interpretation and review of laboratory results Normal [facility] Interpretation and review of laboratory results Abnormal [facility] Blood Expiration Date S [facility] R&V CrossMyColorScreen interpretation COMP [facility] Dispense Status Released from [facility] R&V Product Blood Type 9500 [facility] PRODUCT CODE [id number] [facility] Health Unit ABO O [facility] Health Unit Number [id number] [facility] alth Unit RH Negative [facility] Unit Volume 300 mL [facility] No Panel InformationOrdered By: Farhat Simons on 01-24-2025 Interpretation and review of laboratory results Abnormal [facility] No Panel InformationOrdered By: Anu Graham on 01-24-2025 [facility] Nursing Noteon 01-24-2025 Nursing Note Normal [facility] Op Noteon 01-24-2025 Op Note Normal [facility] PHOSPHORUSon 01-24-2025 Phosphate [Mass/Vol] 5.1 mg/dL High 2.3-4.7 [facility] Comment on above: Performed By: #### L VC4537, HMH263, LAB15, VNC826 ####Specialized Language Instructor: DOMENICA JARA ([id number])[facility] ([facility])[address] [place] [address] PROTHROMBIN TIMEon INR Coag (PPP) [Relative time] 1.5 {INR} High 0.9-1.1 [facility] Comment on above: Result Comment: Vaughn mmended [...] Myocardial Infarction Performed By: #### L AB320 ####Specialized Language Instructor: DOMENICA JARA ([phone])[facility])[address] [place] [address] PT Coag (PPP) [Time] 15.9 s High 9.0-12.0 [facility] Comment on above: Performed By: #### L AB320 ####Specialized Language Instructor: DOMENICA JARA ([id number])[facility])[address] [place] [address] INR Coag (PPP) [Relative time] 1.5 {INR} High 0.9-1.1 [facility] Comment on above: Result Comment: Vaughn mmended [...] Myocardial Infarction Performed By: #### L AB320, DLR169 ####Specialized Language Instructor: DOMENICA JARA ([id number])[facility])[address] [place] [address] [place] PT Coag (PPP) [Time] 15.1 s High 9.0-12.0 [facility] Comment on above: Performed By: #### L AB320, RRU174 ####Specialized Language Instructor: DOMENICA JARA ([id number])[facility])[address] [place] [address] INR Coag (PPP) [Relative time] 1.5 {INR} High 0.9-1.1 [facility] Comment on above: Result Comment: Avughn mmended Anticoagulant Therapy: SEE BELOW----- INR of [...] Myocardial Infarction Performed By: #### L AB320 ####Specialized Language Instructor: DOMENICA JARA ([phone])[facility] ([facility])[address] [place] [address] PT Coag (PPP) [Time] 15.6 s High 9.0-12.0 [facility] Comment on above: Performed By: #### Tameka [id number] ####Specialized Language Instructor: DOMENICA JARA ([phone])[facility] ([facility] [place] [address] PT Coag (Bld) [Time]on 01-24 INR Coag (PPP) [Relative time] 1.5 {INR} High 0.9 - 1.1 [facility] INR Coag (PPP) [Relative time] 1.5 {INR} High 0.9 - 1.1 [facility] Interpretation and review of laboratory results Abnormal [facility] Phosphate [Moles/Vol]on 12-28 Phosphate [Mass/Vol] 5.1 mg/dL High 2.3 - 4 .7 mg/dL [facility] Progress Noteon 01-24-2025 Progress Note Normal [facility] Progress Note Normal [facility] Progress Note Normal [facility] Progress Note Normal [facility] Progress Note Normal [facility] XR CHEST 1 VIEWon 01-24-2025 XR CHEST 1 VIEW Normal [facility] XR Chest Single viewon 01-24 [facility] Radiology Study observation (narrative) [facility] aPTT Coag (Bld) [Time]on aPTT Coag (PPP) [Time] 33.7 s High 20.0 - 30.5 s [facility] aPTT Coag (Bld) [Time]Ordere d By: Callie Steele on 01-24-2025 aPTT Coag (PPP) [Time] 114.7 s High 20.0 - 30.5 s [facility] Interpretation and review of laboratory results Abnormal [facility] 30on 01-23-2025 30 Normal [facility] APTTon 01-23-2025 aPTT Coag (Bld) [Time] 114.7 s High 20.0-30.5 [facility] Comment on above: Result Comment: ARPAN Kaplan COMMENTS:NOTE: The therapeutic time for Heparin anticoagulation, based on Xa activity inhibition, is an APTT of 46-80 seconds. Performed By: #### L AB325 ####Specialized Language Instructor: DOMENICA JARA ([phone])[facility] ([facility])[address] [place] [address] BASIC METABOLIC PANELon - Anion gap [Moles/Vol] 13 mmol/L Normal 3-13 [facility] Comment on above: Performed By: #### L AB15, [id number], [id number] ####Specialized Language Instructor: DOMENICA JARA ([phone])[facility] ([facility])[address] [place] [address] Calcium [Mass/Vol] 9.4 mg/dL Normal 8.4-10.2 [facility] Comment on above: Performed By: #### L AB15, [id number], [id number] ####Specialized Language Instructor: DOMENICA JARA ([id number])[facility] ([facility])[address] [place] [address] [place] Chloride [Moles/Vol] 102 mmol/L Normal 98-107 [facility] Comment on above: Performed By: #### L AB15, [id number], [id number] ####Specialized Language Instructor: DOMENICA JARA ([id number])[facility])[address] [place] [address] CO2 [Moles/Vol] 25 mmol/L Normal 22-29 [facility] Comment on above: Performed By: #### L AB15, YCA695, PLE803 ####Specialized Language Instructor: DOMENICA JARA ([phone])[facility] ([facility])[address] [place] [address] Creatinine [Mass/Vol] 2.34 mg/dL High 0.72-1.25 [facility] Comment on above: Performed By: #### L AB15, IMO461, [id number] ####Specialized Language Instructor: DOMENICA JARA ([id number])[facility])[address] [place] [address] [place] GLOMERULAR FILTRATION RATE ML/MIN/1.73 SQ M.PREDICTED 31.3 mL/min/1.73m*2 Low >60.0 [facility] Comment on above: Result Comment: Calc ulation based on the Chronic Kidney Disease Epidemiology Collaboration (CKD-EPI) equation refit without adjustment for race Performed By: #### L AB15, QYM664, JIM669 ####Specialized Language Instructor: DOMENICA JARA ([phone])[facility])[address] [place] [address] Glucose [Mass/Vol] 80 mg/dL Normal 74-100 [facility] Comment on above: Performed By: #### L AB15, VKR741, BST664 ####Specialized Language Instructor: DOMENICA JARA ([id number])[facility])[address] [place] [address] Potassium [Moles/Vol] 3.4 mmol/L Low 3.5-5.1 [facility] Comment on above: Result Comment: [facility] potassium values may be up to 0.5 mmol/L lower than serum values. Performed By: #### L AB15, [id number], [id number] ####Specialized Language Instructor: DOMENICA JARA ([id number])[facility])[address] [place] [address] [place] Sodium [Moles/Vol] 140 mmol/L Normal 136-145 [facility] Comment on above: Performed By: #### L AB15, HKI559, NCX979 ####Specialized Language Instructor: DOMENICA JARA ([phone])[facility])[address] [place] [address] [place] Urea nitrogen [Mass/Vol] 22 mg/dL Normal 9-23 [facility] Comment on above: Performed By: #### L AB15, YBK912, NWA695 ####Specialized Language Instructor: DOMENICA JARA ([id number])[facility] ([facility])[address] [place] [address] Basic metabolic 1998 panelon 01-23-2025 Anion gap [Moles/Vol] 13 mmol/L 3 - 13 mmol/L [facility] Calcium [Mass/Vol] 9.4 mg/dL 8.4 - 10. 2 mg/dL [facility] Chloride [Moles/Vol] 102 mmol/L 98 - 10 7 mmol/L [facility] CO2 [Moles/Vol] 25 mmol/L 22 - 29 mmol/L [facility] Creatinine [Mass/Vol] 2.34 mg/dL High 0.72 - 1.25 mg/dL [facility] GFR/1.73 sq M.predicted (S/P/Bld) [Vol rate/Area] 31.3 mL/min Low - PINF [facility] Glucose [Mass/Vol] 80 mg/dL 74 - 100 mg/dL [facility] Interpretation and review of laboratory results Abnormal [facility] Potassium [Moles/Vol] 3.4 mmol/L Low 3.5 - 5.1 mmol/L [facility] Sodium [Moles/Vol] 140 mmol/L 136 - 145 mmol/L [facility] Urea nitrogen [Mass/Vol] 22 mg/dL 9 - 23 mg/d L [facility] CBC W Auto Differential pane l (Bld)on 01-23-2025 Basophils (Bld) [#/Vol] 0.1 10*3/uL 0.0 - 0.2 10*3/uL [facility] Basophils/100 WBC (Bld) 1 % 0.0 - 2.0 % [facility] Eosinophils (Bld) [#/Vol] 0.7 10*3/uL High 0.0 - 0.5 10*3/uL [facility] Eosinophils/100 WBC (Bld) 6.8 % High 0.0 - 6.0 % [facility] Erythrocyte distribution width (RBC) [Ratio] 18.8 % High 11.5 - 15.0 % [facility] Hematocrit (Bld) [Volume fraction] 25.3 % Low 40.0 - 52.0 % [facility] Hemoglobin (Bld) [Mass/Vol] 7.9 g/dL Low 13.0 - 18.0 g/dL [facility] Immature granulocytes (Bld) [#/Vol] 0.1 10*3/uL High NINF - 0.1 10*3/uL [facility] Immature granulocytes/100 WBC (Bld) 1.1 % 0.0 - 2.0 % [facility] Interpretation and review of laboratory results Abnormal [facility] Lymphocytes (Bld) [#/Vol] 1.5 10*3/uL 1.0 - 4.3 10*3/uL [facility] Lymphocytes/100 WBC (Bld) 13.7 % Low 15.0 - 45.0 % [facility] MCH (RBC) [Entitic mass] 27.9 pg 26. 0 - 34.0 pg [facility] MCHC (RBC) [Mass/Vol] 31.2 % 30.5 - 36.0 % [facility] MCV (RBC) [Entitic vol] 89.4 fL 77.0 - 99.0 fL [facility] Monocytes (Bld) [#/Vol] 1.5 10*3/uL High 0.0 - 0.9 10*3/uL [facility] Monocytes/100 WBC (Bld) 13.7 % High 5.0 - 13.0 % [facility] Neutrophils (Bld) [#/Vol] 7 10*3/uL 1.8 - 7.5 10*3/uL [facility] Neutrophils/100 WBC (Bld) 63.7 % 38.0 - 82.0 % [facility] Nucleated RBC/100 WBC (Bld) [Ratio] 0 % [facility] Platelet mean volume (Bld) [Entitic vol] 9.4 fL 9.0 - 12.7 fL [facility] Platelets (Bld) [#/Vol] 346 10*3/uL 140 - 440 10*3/uL [facility] RBC (Bld) [#/Vol] 2.83 10*6/uL Low 4.40 - 5.9 0 10*6/uL [facility] WBC (Bld) [#/Vol] 10.9 10*3/uL High 3.6 - 10.7 10*3/uL [facility] Basophils (Bld) [#/Vol] 0.1 10*3/uL 0.0 - 0.2 10*3/uL [facility] Basophils/100 WBC (Bld) 1.1 % 0.0 - 2.0 % [facility] Eosinophils (Bld) [#/Vol] 0.9 10*3/uL High 0.0 - 0.5 10*3/uL [facility] Eosinophils/100 WBC (Bld) 8 % High 0.0 - 6.0 % [facility] Erythrocyte distribution width (RBC) [Ratio] 18.5 % High 11.5 - 15.0 % [facility] Hematocrit (Bld) [Volume fraction] 23.4 % Low 40.0 - 52.0 % [facility] Hemoglobin (Bld) [Mass/Vol] 7.3 g/dL Low 13.0 - 18.0 g/dL [facility] Immature granulocytes (Bld) [#/Vol] 0.1 10*3/uL High NINF - 0.1 10*3/uL [facility] Immature granulocytes/100 WBC (Bld) 1.1 % 0.0 - 2.0 % [facility] Interpretation and review of laboratory results Abnormal [facility] Lymphocytes (Bld) [#/Vol] 1.4 10*3/uL 1.0 - 4.3 10*3/uL [facility] Lymphocytes/100 WBC (Bld) 12.2 % Low 15.0 - 45.0 % [facility] MCH (RBC) [Entitic mass] 27.7 pg 26. 0 - 34.0 pg [facility] MCHC (RBC) [Mass/Vol] 31.2 % 30.5 - 36.0 % [facility] MCV (RBC) [Entitic vol] 88.6 fL 77.0 - 99.0 fL [facility] Monocytes (Bld) [#/Vol] 1.4 10*3/uL High 0.0 - 0.9 10*3/uL [facility] Monocytes/100 WBC (Bld) 12.9 % 5.0 - 13.0 % [facility] Neutrophils (Bld) [#/Vol] 7.2 10*3/uL 1.8 - 7.5 10*3/uL [facility] Neutrophils/100 WBC (Bld) 64.7 % 38.0 - 82.0 % [facility] Nucleated RBC/100 WBC (Bld) [Ratio] 0 % [facility] Platelet mean volume (Bld) [Entitic vol] 9.1 fL 9.0 - 12.7 fL [facility] Platelets (Bld) [#/Vol] 345 10*3/uL 140 - 440 10*3/uL [facility] RBC (Bld) [#/Vol] 2.64 10*6/uL Low 4.40 - 5.9 0 10*6/uL [facility] WBC (Bld) [#/Vol] 11.1 10*3/uL High 3.6 - 10.7 10*3/uL [facility] CBC WITH AUTO DIFFERENTIALon 01-23-2025 Basophils (Bld) [#/Vol] 0.1 10*3/uL Normal 0.0-0.2 [facility] Comment on above: Performed By: #### Tameka [id number], [id number] ####Specialized Language Instructor: DOMENICA [id number])[facility])[address] [place] [address] Basophils/100 WBC (Bld) 1.0 % Normal 0.0-2.0 [facility] Comment on above: Performed By: #### Tameka MARTINEZ, [id number] ####Specialized Language Instructor: DOMENICA [id number])[address] Eosinophils (Bld) [#/Vol] 0.7 10*3/uL High 0.0-0.5 [facility] Comment on above: Performed By: #### Tameka [id number], [id number] ####Specialized Language Instructor: DOMENICA JARA ([phone])[facility])[address] [place] [address] [place] Eosinophils/100 WBC (Bld) 6.8 % High 0.0-6.0 [facility] Comment on above: Performed By: #### Tameka [id number], [id number] ####Specialized Language Instructor: DOMENICA [id number])[facility])[address] [place] [address] Erythrocyte distribution width (RBC) [Ratio] 18.8 % High 11.5-15.0 [facility] Comment on above: Performed By: #### Tameka MARTINEZ [id number] ####Specialized Language Instructor: DOMENICA JARA ([phone])[facility])[address] [place] [address] Hematocrit (Bld) [Volume fraction] 25.3 % Low 40.0-52.0 [facility] Comment on above: Performed By: #### Tameka MARTINEZ, [id number] ####Specialized Language Instructor: DOMENICA JARA ([id number])[facility])[address] [place] [address] IMMATURE GRANS % 1.1 % Normal 0.0-2.0 [facility] Comment on above: Performed By: #### Tameka MARTINEZ, [id number] ####Specialized Language Instructor: DOMENICA JARA ([phone])[facility])[address] [place] [address] IMMATURE GRANS ABSOLUTE 0.1 10*3/uL High <0.1 [facility] Comment on above: Performed By: #### Tameka MARTINEZ [id number] ####Specialized Language Instructor: DOMENICA JARA ([id number])[facility])[address] [place] [address] Lymphocytes (Bld) [#/Vol] 1.5 10*3/uL Normal 1.0-4.3 [facility] Comment on above: Performed By: #### Tameka MARTINEZ, [id number] ####Specialized Language Instructor: DOMENICA JARA ([id number])[facility])[address] [place] [address] Lymphocytes/100 WBC (Bld) 13.7 % Low 15.0-45.0 [facility] Comment on above: Performed By: #### Tameka MARTINEZ, [id number] ####Specialized Language Instructor: DOMENICA JARA ([id number])[facility])[address] [place] [address] MCH (RBC) [Entitic mass] 27.9 pg Normal 26.0-34.0 [facility] Comment on above: Performed By: #### Tameka MARTINEZ, [id number] ####Specialized Language Instructor: DOMENICA JARA ([phone])[facility])[address] [place] [address] MCHC 31.2 % Normal 30.5-36.0 [facility] Comment on above: Performed By: #### Tameka MARTINEZ, [id number] ####Specialized Language Instructor: DOMENICA JARA ([id number])[facility] ([facility])[address] [place] [address] MCV (RBC) [Entitic vol] 89.4 fL Normal 77.0-99.0 [facility] Comment on above: Performed By: #### Tameka MARTINEZ, [id number] ####Specialized Language Instructor: DOMENICA JARA ([id number])[facility])[address] [place] [address] Monocytes (Bld) [#/Vol] 1.5 10*3/uL High 0.0-0.9 [facility] Comment on above: Performed By: #### Tameka MARTINEZ, [id number] ####Specialized Language Instructor: DOMENICA JARA ([id number])[facility])[address] [place] [address] Monocytes/100 WBC (Bld) 13.7 % High 5.0-13.0 [facility] Comment on above: Performed By: #### Tameka MARTINEZ, [id number] ####Specialized Language Instructor: DOMENICA JARA ([phone])[facility] ([facility])[address] [place] [address] NEUTROPHILS ABSOLUTE 7.0 10*3/uL Normal 1.8-7.5 [facility] Comment on above: Performed By: #### Tameka MARTINEZ, [id number] ####Specialized Language Instructor: DOMENICA JARA ([phone])[facility])[address] [place] [address] Neutrophils/100 WBC (Bld) 63.7 % Normal 38.0-82.0 [facility] Comment on above: Performed By: #### Tameka [id number], [id number] ####Specialized Language Instructor: DOMENICA JARA ([phone])[facility])[address] [place] [address] NRBC 0.0 /100 WBCs Normal 0.0-2.0 [facility] Comment on above: Performed By: #### Tameka MARTINEZ, [id number] ####Specialized Language Instructor: DOMENICA JARA ([phone])[facility] ([facility])[address] [place] [address] Platelet mean volume (Bld) [Entitic vol] 9.4 fL Normal 9.0-12.7 [facility] Comment on above: Performed By: #### Tameka MARTINEZ, [id number] ####Specialized Language Instructor: DOMENICA JARA ([phone])[facility])[address] [place] [address] Platelets (Bld) [#/Vol] 346 10*3/uL Normal 140-440 [facility] Comment on above: Performed By: #### Tameka MARTINEZ, [id number] ####Specialized Language Instructor: DOMENICA JARA ([id number])[facility] ([facility])[address] [place] [address] RBC (Bld) [#/Vol] 2.83 10*6/uL Low 4.40-5.90 [facility] Comment on above: Performed By: #### Tameka MARTINEZ, [id number] ####Specialized Language Instructor: DOMENICA JARA ([id number])[facility] ([facility])[address] [place] [address] WBC (Bld) [#/Vol] 10.9 10*3/uL High 3.6-10.7 [facility] Comment on above: Performed By: #### L [id number], [id number] ####Specialized Language Instructor: DOMENICA JARA ([id number])[facility])[address] [place] [address] Basophils (Bld) [#/Vol] 0.1 10*3/uL Normal 0.0-0.2 [facility] Comment on above: Performed By: #### L [id number] ####Specialized Language Instructor: DOMENICA JARA ([id number])[facility])[address] [place] [address] Basophils/100 WBC (Bld) 1.1 % Normal 0.0-2.0 [facility] Comment on above: Performed By: #### L [id number] ####Specialized Language Instructor: DOMENICA JARA ([id number])[facility] ([facility])[address] [place] [address] Eosinophils (Bld) [#/Vol] 0.9 10*3/uL High 0.0-0.5 [facility] Comment on above: Performed By: #### L [id number] ####Specialized Language Instructor: DOMENICA JARA ([id number])[facility])[address] [place] [address] Eosinophils/100 WBC (Bld) 8.0 % High 0.0-6.0 [facility] Comment on above: Performed By: #### L [id number] ####Specialized Language Instructor: DOMENICA JARA ([id number])[facility])[address] [place] [address] Erythrocyte distribution width (RBC) [Ratio] 18.5 % High 11.5-15.0 [facility] Comment on above: Performed By: #### L [id number] ####Specialized Language Instructor: DOMENICA JARA ([phone])[facility])[address] [place] [address] Hematocrit (Bld) [Volume fraction] 23.4 % Low 40.0-52.0 [facility] Comment on above: Performed By: #### L [id number] ####Specialized Language Instructor: DOMENICA JARA ([id number])[facility])[address] [place] [address] Hemoglobin (Bld) [Mass/Vol] 7.3 g/dL Low 13.0-18.0 [facility] Comment on above: Performed By: #### L [id number] ####Specialized Language Instructor: DOMENICA JARA ([phone])[facility])[address] [place] [address] IMMATURE GRANS % 1.1 % Normal 0.0-2.0 [facility] Comment on above: Performed By: #### L [id number] ####Specialized Language Instructor: DOMENICA JARA ([id number])[facility])[address] [place] [address] IMMATURE GRANS ABSOLUTE 0.1 10*3/uL High <0.1 [facility] Comment on above: Performed By: #### L [id number] ####Specialized Language Instructor: DOMENICA JARA ([id number])[facility])[address] [place] [address] Lymphocytes (Bld) [#/Vol] 1.4 10*3/uL Normal 1.0-4.3 [facility] Comment on above: Performed By: #### L [id number] ####Specialized Language Instructor: DOMENICA JARA ([id number])[facility])[address] [place] [address] Lymphocytes/100 WBC (Bld) 12.2 % Low 15.0-45.0 [facility] Comment on above: Performed By: #### L [id number] ####Specialized Language Instructor: DOMENICA JARA ([id number])[facility])[address] [place] [address] MCH (RBC) [Entitic mass] 27.7 pg Normal 26.0-34.0 [facility] Comment on above: Performed By: #### L [id number] ####Specialized Language Instructor: DOMENICA JARA ([id number])[facility])[address] [place] [address] MCHC 31.2 % Normal 30.5-36.0 [facility] Comment on above: Performed By: #### L [id number] ####Specialized Language Instructor: DOMENICA JARA ([id number])[facility] ([facility])[address] [place] [address] MCV (RBC) [Entitic vol] 88.6 fL Normal 77.0-99.0 [facility] Comment on above: Performed By: #### L [id number] ####Specialized Language Instructor: DOMENICA JARA ([id number])[facility] ([facility])[address] [place] [address] Monocytes (Bld) [#/Vol] 1.4 10*3/uL High 0.0-0.9 [facility] Comment on above: Performed By: #### L [id number] ####Specialized Language Instructor: DOMENIAC JARA ([id number])[facility])[address] [place] [address] Monocytes/100 WBC (Bld) 12.9 % Normal 5.0-13.0 [facility] Comment on above: Performed By: #### L [id number] ####Specialized Language Instructor: DOMENICA JARA ([id number])[facility] ([facility])[address] [place] [address] NEUTROPHILS ABSOLUTE 7.2 10*3/uL Normal 1.8-7.5 [facility] Comment on above: Performed By: #### L [id number] ####Specialized Language Instructor: DOMENICA JARA ([phone])[facility] ([facility])[address] [place] [address] Neutrophils/100 WBC (Bld) 64.7 % Normal 38.0-82.0 [facility] Comment on above: Performed By: #### L [id number] ####Specialized Language Instructor: DOMENICA JARA ([id number])[facility] ([facility])[address] [place] [address] NRBC 0.0 /100 WBCs Normal 0.0-2.0 [facility] Comment on above: Performed By: #### L [id number] ####Specialized Language Instructor: DOMENICA JARA ([id number])[facility] ([facility])[address] [place] [address] [place] Platelet mean volume (Bld) [Entitic vol] 9.1 fL Normal 9.0-12.7 [facility] Comment on above: Performed By: #### L [id number] ####Specialized Language Instructor: DOMENICA JARA ([id number])[facility])[address] [place] [address] Platelets (Bld) [#/Vol] 345 10*3/uL Normal 140-440 [facility] Comment on above: Performed By: #### L [id number] ####Specialized Language Instructor: DOMENICA JARA ([id number])[facility] ([facility])[address] [place] [address] RBC (Bld) [#/Vol] 2.64 10*6/uL Low 4.40-5.90 [facility] Comment on above: Performed By: #### L [id number] ####Specialized Language Instructor: DOMENICA JARA ([id number])[facility])[address] [place] [address] WBC (Bld) [#/Vol] 11.1 10*3/uL High 3.6-10.7 [facility] Comment on above: Performed By: #### L [id number] ####Specialized Language Instructor: DOMENICA JARA ([id number])[facility])[address] [place] [address] Consulton 01-23-2025 Consult Normal [facility] Consult Normal [facility] HEMOGLOBIN AND HEMATOCRIT, B LOODon 01-23-2025 Hematocrit (Bld) [Volume fraction] 25.1 % Low 40.0-52.0 [facility] Comment on above: Performed By: #### L [id number], [id number] ####Specialized Language Instructor: DOMENICA JARA ([phone])[facility])[address] [place] [address] Hemoglobin (Bld) [Mass/Vol] 7.9 g/dL Low 13.0-18.0 [facility] Comment on above: Performed By: #### L [id number], [id number] ####Specialized Language Instructor: DOMENICA JARA ([id number])[facility] ([facility])[address] [place] [address] Hemoglobin (Bld) [Mass/Vol]o n 01-23-2025 Hematocrit (Bld) [Volume fraction] 25.1 % Low 40.0 - 52.0 % [facility] Interpretation and review of laboratory results Abnormal [facility] Laboratory - Chemistry and C hemistry - challengeon 01-23-2025 Glucose [Mass/Vol] 113 mg/dL High 70 - 100 mg/dL [facility] Glucose [Mass/Vol] 92 mg/dL 70 - 100 mg/dL [facility] Magnesium [Mass/Vol] 2.1 mg/dL 1.6 - 2 .6 mg/dL [facility] Laboratory - Coagulationon 0 01-23-2025 aPTT Coag (PPP) [Time] 30.6 s High 20.0 - 30.5 s [facility] INR Coag (PPP) [Relative time] 1.6 {INR} High 0.9 - 1.1 [facility] [facility] PT Coag (Bld) [Time] 16.1 s High 9.0 - 12.0 s [facility] PT Coag (Bld) [Time] 20 s High 9.0 - 12.0 s [facility] Laboratory - Hematology and Cell countson 01-23-2025 Hemoglobin (Bld) [Mass/Vol] 7.9 g/dL Low 13.0 - 18.0 g/dL [facility] MAGNESIUMon 01-23-2025 Magnesium [Mass/Vol] 2.1 mg/dL Normal 1.6-2.6 [facility] Comment on above: Result Comment: ARPAN Kaplan COMMENTS:Higher values can be expected in females during menses. Performed By: #### L AB15, [id number], [id number] ####Specialized Language Instructor: DOMENICA JARA ([id number])[facility] ([facility])[address] [place] [address] Magnesium [Mass/Vol]on 01-23 Interpretation and review of laboratory results Normal [facility] No Panel Informationon 01-23 Interpretation and review of laboratory results Abnormal [facility] Interpretation and review of laboratory results Abnormal [facility] Interpretation and review of laboratory results Normal [facility] PHOSPHORUSon 01-23-2025 Phosphate [Mass/Vol] 4.5 mg/dL Normal 2.3-4.7 [facility] Comment on above: Performed By: #### L [id number], [id number], [id number] ####Specialized Language Instructor: DOMENICA JARA ([phone])[facility])[address] [place] [address] PROTHROMBIN TIMEon 5 INR Coag (PPP) [Relative time] 2.0 {INR} High 0.9-1.1 [facility] Comment on above: Result Comment: Vaughn mmended [...] Myocardial Infarction Performed By: #### L [id number] ####Specialized Language Instructor: DOMENICA JARA ([phone])[facility])[address] [place] [address] PT Coag (PPP) [Time] 20.0 s High 9.0-12.0 [facility] Comment on above: Performed By: #### L [id number] ####Specialized Language Instructor: DOMENICA JARA ([phone])[facility])[address] [place] [address] PROTIME AND APTTon 5 aPTT Coag (Bld) [Time] 30.6 s High 20.0-30.5 [facility] Comment on above: Performed By: #### L [id number] ####Specialized Language Instructor: DOMENICA JARA ([id number])[facility])[address] [place] [address] INR Coag (PPP) [Relative time] 1.6 {INR} High 0.9-1.1 [facility] Comment on above: Result Comment: Vaughn mmended [...] prevent Myocardial Infarction Performed By: #### L [id number] ####Specialized Language Instructor: DOMENICA JARA ([phone])[facility] ([facility])[address] [place] [address] PT Coag (PPP) [Time] 16.1 s High 9.0-12.0 [facility] Comment on above: Performed By: #### L [id number] ####Specialized Language Instructor: DOMENICA JARA ([phone])[facility] ([facility])[address] [place] [address] PT Coag (Bld) [Time]on 01-23 INR Coag (PPP) [Relative time] 2 {INR} High 0.9 - 1.1 [facility] Interpretation and review of laboratory results Abnormal [facility] Phosphate [Moles/Vol]Ordered By: Jenni Romano on 01-23-2025 Interpretation and review of laboratory results Normal [facility] Phosphate [Mass/Vol] 4.5 mg/dL 2.3 - 4 .7 mg/dL [facility] Progress Noteon 01-23-2025 Progress Note Normal [facility] Progress Note Normal [facility] Progress Note Normal [facility] Progress Note Normal [facility] Progress Note Normal [facility] Progress Note Normal [facility] [id number] 01-22-2025 [id number] Normal [facility] [id number] Normal [facility] Basic metabolic 1998 panelOr dered By: Nathaly Dobson on 01-22-2025 Anion gap [Moles/Vol] 13 mmol/L 3 - 13 mmol/L [facility] Calcium [Mass/Vol] 9.8 mg/dL 8.4 - 10. 2 mg/dL [facility] Chloride [Moles/Vol] 94 mmol/L Low 98 - 10 7 mmol/L [facility] CO2 [Moles/Vol] 25 mmol/L 22 - 29 mmol/L [facility] Creatinine [Mass/Vol] 4.18 mg/dL High 0.72 - 1.25 mg/dL [facility] GFR/1.73 sq M.predicted (S/P/Bld) [Vol rate/Area] 15.6 mL/min Low - PINF [facility] Glucose [Mass/Vol] 70 mg/dL Low 74 - 100 mg/dL [facility] Interpretation and review of laboratory results Abnormal [facility] Potassium [Moles/Vol] 4.4 mmol/L 3.5 - 5.1 mmol/L [facility] Sodium [Moles/Vol] 132 mmol/L Low 136 - 145 mmol/L [facility] Urea nitrogen [Mass/Vol] 53 mg/dL High 9 - 23 mg/d L [facility] CBC W Auto Differential pane l (Bld)Ordered By: Tiffanie Chand on 01-22-2025 Basophils (Bld) [#/Vol] 0.1 10*3/uL 0.0 - 0.2 10*3/uL [facility] Basophils/100 WBC (Bld) 0.8 % 0.0 - 2.0 % [facility] Eosinophils (Bld) [#/Vol] 0.7 10*3/uL High 0.0 - 0.5 10*3/uL [facility] Eosinophils/100 WBC (Bld) 6.1 % High 0.0 - 6.0 % [facility] Erythrocyte distribution width (RBC) [Ratio] 18.4 % High 11.5 - 15.0 % [facility] Hematocrit (Bld) [Volume fraction] 23.9 % Low 40.0 - 52.0 % [facility] Hemoglobin (Bld) [Mass/Vol] 7.4 g/dL Low 13.0 - 18.0 g/dL [facility] Immature granulocytes (Bld) [#/Vol] 0.1 10*3/uL High NINF - 0.1 10*3/uL [facility] Immature granulocytes/100 WBC (Bld) 1.1 % 0.0 - 2.0 % [facility] Interpretation and review of laboratory results Abnormal [facility] Lymphocytes (Bld) [#/Vol] 1 10*3/uL 1.0 - 4.3 10*3/uL [facility] Lymphocytes/100 WBC (Bld) 9.7 % Low 15.0 - 45.0 % [facility] MCH (RBC) [Entitic mass] 27.5 pg 26. 0 - 34.0 pg [facility] MCHC (RBC) [Mass/Vol] 31 % 30.5 - 36.0 % [facility] MCV (RBC) [Entitic vol] 88.8 fL 77.0 - 99.0 fL [facility] Monocytes (Bld) [#/Vol] 1.5 10*3/uL High 0.0 - 0.9 10*3/uL [facility] Monocytes/100 WBC (Bld) 14.5 % High 5.0 - 13.0 % [facility] Neutrophils (Bld) [#/Vol] 7.2 10*3/uL 1.8 - 7.5 10*3/uL [facility] Neutrophils/100 WBC (Bld) 67.8 % 38.0 - 82.0 % [facility] Nucleated RBC/100 WBC (Bld) [Ratio] 0 % [facility] Platelet mean volume (Bld) [Entitic vol] 8.2 fL Low 9.0 - 12.7 fL [facility] Platelets (Bld) [#/Vol] 292 10*3/uL 140 - 440 10*3/uL [facility] RBC (Bld) [#/Vol] 2.69 10*6/uL Low 4.40 - 5.9 0 10*6/uL [facility] WBC (Bld) [#/Vol] 10.6 10*3/uL 3.6 - 10.7 10*3/uL [facility] CBC W Auto Differential pane l (Bld)on 01-22-2025 Basophils (Bld) [#/Vol] 0.1 10*3/uL 0.0 - 0.2 10*3/uL [facility] Basophils/100 WBC (Bld) 1.1 % 0.0 - 2.0 % [facility] Eosinophils (Bld) [#/Vol] 0.8 10*3/uL High 0.0 - 0.5 10*3/uL [facility] Eosinophils/100 WBC (Bld) 7.9 % High 0.0 - 6.0 % [facility] Erythrocyte distribution width (RBC) [Ratio] 18.6 % High 11.5 - 15.0 % [facility] Hematocrit (Bld) [Volume fraction] 25.1 % Low 40.0 - 52.0 % [facility] Hemoglobin (Bld) [Mass/Vol] 8 g/dL Low 13.0 - 18.0 g/dL [facility] Immature granulocytes (Bld) [#/Vol] 0.1 10*3/uL High NINF - 0.1 10*3/uL [facility] Immature granulocytes/100 WBC (Bld) 0.8 % 0.0 - 2.0 % [facility] Interpretation and review of laboratory results Abnormal [facility] Lymphocytes (Bld) [#/Vol] 1.5 10*3/uL 1.0 - 4.3 10*3/uL [facility] Lymphocytes/100 WBC (Bld) 14.1 % Low 15.0 - 45.0 % [facility] MCH (RBC) [Entitic mass] 27.7 pg 26. 0 - 34.0 pg [facility] MCHC (RBC) [Mass/Vol] 31.9 % 30.5 - 36.0 % [facility] MCV (RBC) [Entitic vol] 86.9 fL 77.0 - 99.0 fL [facility] Monocytes (Bld) [#/Vol] 1.5 10*3/uL High 0.0 - 0.9 10*3/uL [facility] Monocytes/100 WBC (Bld) 14 % High 5.0 - 13.0 % [facility] Neutrophils (Bld) [#/Vol] 6.6 10*3/uL 1.8 - 7.5 10*3/uL [facility] Neutrophils/100 WBC (Bld) 62.1 % 38.0 - 82.0 % [facility] Nucleated RBC/100 WBC (Bld) [Ratio] 0 % [facility] Platelet mean volume (Bld) [Entitic vol] 8.8 fL Low 9.0 - 12.7 fL [facility] Platelets (Bld) [#/Vol] 330 10*3/uL 140 - 440 10*3/uL [facility] RBC (Bld) [#/Vol] 2.89 10*6/uL Low 4.40 - 5.9 0 10*6/uL [facility] WBC (Bld) [#/Vol] 10.6 10*3/uL 3.6 - 10.7 10*3/uL [facility] CBC WITH AUTO DIFFERENTIALon 01-22-2025 Basophils (Bld) [#/Vol] 0.1 10*3/uL Normal 0.0-0.2 [facility] Comment on above: Performed By: #### L [id number] ####Specialized Language Instructor: DOMENICA JARA ([phone])[facility])[address] [place] [address] Basophils/100 WBC (Bld) 0.8 % Normal 0.0-2.0 [facility] Comment on above: Performed By: #### L [id number] ####Specialized Language Instructor: DOMENICA JARA ([id number])[facility] ([facility])[address] [place] [address] Eosinophils (Bld) [#/Vol] 0.7 10*3/uL High 0.0-0.5 [facility] Comment on above: Performed By: #### L [id number] ####Specialized Language Instructor: DOMENICA JARA ([phone])[facility])[address] [place] [address] Eosinophils/100 WBC (Bld) 6.1 % High 0.0-6.0 [facility] Comment on above: Performed By: #### L [id number] ####Specialized Language Instructor: DOMENICA JARA ([id number])[facility])[address] [place] [address] Erythrocyte distribution width (RBC) [Ratio] 18.4 % High 11.5-15.0 [facility] Comment on above: Performed By: #### L [id number] ####Specialized Language Instructor: DOMENICA JARA ([id number])[facility])[address] [place] [address] Hematocrit (Bld) [Volume fraction] 23.9 % Low 40.0-52.0 [facility] Comment on above: Performed By: #### L [id number] ####Specialized Language Instructor: DOMENICA JARA ([id number])[facility])[address] [place] [address] Hemoglobin (Bld) [Mass/Vol] 7.4 g/dL Low 13.0-18.0 [facility] Comment on above: Performed By: #### L [id number] ####Specialized Language Instructor: DOMENICA JARA ([phone])[facility])[address] [place] [address] IMMATURE GRANS % 1.1 % Normal 0.0-2.0 [facility] Comment on above: Performed By: #### L [id number] ####Specialized Language Instructor: DOMENICA JARA ([id number])[facility])[address] [place] [address] IMMATURE GRANS ABSOLUTE 0.1 10*3/uL High <0.1 [facility] Comment on above: Performed By: #### L [id number] ####Specialized Language Instructor: DOMENICA JARA ([phone])[facility])[address] [place] [address] Lymphocytes (Bld) [#/Vol] 1.0 10*3/uL Normal 1.0-4.3 [facility] Comment on above: Performed By: #### L [id number] ####Specialized Language Instructor: DOMENICA JARA ([phone])[facility])[address] [place] [address] Lymphocytes/100 WBC (Bld) 9.7 % Low 15.0-45.0 [facility] Comment on above: Performed By: #### L [id number] ####Specialized Language Instructor: DOMENICA JARA ([id number])[facility])[address] [place] [address] MCH (RBC) [Entitic mass] 27.5 pg Normal 26.0-34.0 [facility] Comment on above: Performed By: #### L [id number] ####Specialized Language Instructor: DOMENICA JARA ([phone])[facility] ([facility])[address] [place] [address] MCHC 31.0 % Normal 30.5-36.0 [facility] Comment on above: Performed By: #### L [id number] ####Specialized Language Instructor: DOMENICA JARA ([phone])[facility] ([facility])[address] [place] [address] MCV (RBC) [Entitic vol] 88.8 fL Normal 77.0-99.0 [facility] Comment on above: Performed By: #### L [id number] ####Specialized Language Instructor: DOMENICA JARA ([id number])[facility] ([facility])[address] [place] [address] Monocytes (Bld) [#/Vol] 1.5 10*3/uL High 0.0-0.9 [facility] Comment on above: Performed By: #### L [id number] ####Specialized Language Instructor: DOMENICA JARA ([id number])[facility] ([facility])[address] [place] [address] Monocytes/100 WBC (Bld) 14.5 % High 5.0-13.0 [facility] Comment on above: Performed By: #### L [id number] ####Specialized Language Instructor: DOMENICA JARA ([id number])[facility] ([facility])[address] [place] [address] NEUTROPHILS ABSOLUTE 7.2 10*3/uL Normal 1.8-7.5 [facility] Comment on above: Performed By: #### L [id number] ####Specialized Language Instructor: DOMENICA JARA ([id number])[facility] ([facility])[address] [place] [address] Neutrophils/100 WBC (Bld) 67.8 % Normal 38.0-82.0 [facility] Comment on above: Performed By: #### L [id number] ####Specialized Language Instructor: DOMENICA JARA ([id number])[facility] ([facility])[address] [place] [address] [place] NRBC 0.0 /100 WBCs Normal 0.0-2.0 [facility] Comment on above: Performed By: #### L [id number] ####Specialized Language Instructor: DOMENICA JARA ([id number])[facility] ([facility])[address] [place] [address] Platelet mean volume (Bld) [Entitic vol] 8.2 fL Low 9.0-12.7 [facility] Comment on above: Performed By: #### L [id number] ####Specialized Language Instructor: DOMENICA JARA ([id number])[facility] ([facility])[address] [place] [address] Platelets (Bld) [#/Vol] 292 10*3/uL Normal 140-440 [facility] Comment on above: Performed By: #### L [id number] ####Specialized Language Instructor: DOMENICA JARA ([id number])[facility] ([facility])[address] [place] [address] RBC (Bld) [#/Vol] 2.69 10*6/uL Low 4.40-5.90 [facility] Comment on above: Performed By: #### L [id number] ####Specialized Language Instructor: DOMENICA JARA ([id number])[facility] ([facility])[address] [place] [address] WBC (Bld) [#/Vol] 10.6 10*3/uL Normal 3.6-10.7 [facility] Comment on above: Performed By: #### L [id number] ####Specialized Language Instructor: DOMENICA JARA ([id number])[facility] ([facility])[address] [place] [address] Coagulation index TEG Qn (Bl d)Ordered By: Santhosh Acevedo on 01-22-2025 APTEM A10 72 mm High 50 - 70 mm [facility] APTEM A20 75 mm High 50 - 70 mm [facility] R&V Clot angle TEG (Bld) [Angle] 82 High [facility] R&V Clot formation.extrinsic coagulation system activated Rotational TEG (Bld) [Time] 200 s High 43 - 82 s [facility] Clot formation.extrinsic coagulation system activated Rotational TEG (Bld) [Time] 42 s Low 48 - 127 s [facility] Clot formation.extrinsic coagulation system activated Rotational TEG (Bld) [Time] 82 High [facility] Clot formation.extrinsic coagulation system activated Rotational TEG (Bld) [Time] 73 mm High 50 - 70 mm [facility] Clot formation.extrinsic coagulation system activated Rotational TEG (Bld) [Time] 76 mm High 52 - 70 mm [facility] Clot formation.extrinsic coagulation system activated.fibrinolysis suppressed Rotational TEG (Bld) [Time] 44 s Low 48 - 127 s [facility] Clot formation.extrinsic coagulation system activated.fibrinolysis suppressed Rotational TEG (Bld) [Time] 33 mm [facility] Clot formation.extrinsic coagulation system activated.fibrinolysis suppressed Rotational TEG (Bld) [Time] 35 mm [facility] Clot formation.extrinsic coagulation system activated.fibrinolysis suppressed Rotational TEG (Bld) [Time] 36 mm High 7 - 24 mm [facility] Clotting time.extrinsic coagulation system activated.fibrinolysis suppressed Rotational TEG (Bld) 232 s High 43 - 82 s [facility] Interpretation and review of laboratory results Abnormal [facility] Maximum clot firmness.extrinsic coagulation system activated.fibrinolysis suppressed Rotational TEG (Bld) [Length] 75 mm High 52 - 70 mm [facility] Hemoglobin (Bld) [Mass/Vol]o n 01-22-2025 Hematocrit (Bld) [Volume fraction] 24.5 % Low 40.0 - 52.0 % [facility] Interpretation and review of laboratory results Abnormal [facility] Hepatic function 2000 panelo n 01-22-2025 Albumin [Mass/Vol] 2.2 g/dL Low 3.5 - 5.0 g/dL [facility] ALP [Catalytic activity/Vol] 274 U/L High 40 - 150 U/L [facility] ALT [Catalytic activity/Vol] 44 U/L High NINF - 40 U/L [facility] AST [Catalytic activity/Vol] 51 U/L High NINF - 34 U/L [facility] Bilirubin [Mass/Vol] 0.9 mg/dL NINF - 1.2 mg/dL [facility] Bilirubin.conjugated [Mass/Vol] 0.7 mg/dL High NINF - 0.5 mg/dL [facility] Protein [Mass/Vol] 7.6 g/dL 6.4 - 8.3 g/dL [facility] Laboratory - Chemistry and C hemistry - challengeon 01-22-2025 Glucose [Mass/Vol] 101 mg/dL High 70 - 100 mg/dL [facility] Glucose [Mass/Vol] 77 mg/dL 70 - 100 mg/dL [facility] Glucose [Mass/Vol] 81 mg/dL 70 - 100 mg/dL [facility] Magnesium [Mass/Vol] 2.6 mg/dL 1.6 - 2 .6 mg/dL [facility] Glucose [Mass/Vol] 82 mg/dL 70 - 100 mg/dL [facility] Laboratory - Coagulationon 0 01-22-2025 aPTT Coag (PPP) [Time] 42.7 s High 20.0 - 30.5 s [facility] INR Coag (PPP) [Relative time] 3.1 {INR} High 0.9 - 1.1 [facility] PT Coag (Bld) [Time] 31 s High 9.0 - 12.0 s [facility] Fibrin D-dimer FEU (PPP) [Mass/Vol] 14.21 mg/L High NINF - 0.50 mg/L [facility] Fibrinogen Coag (PPP) [Mass/Vol] 436 mg/dL High 200 - 400 mg/dL [facility] Laboratory - CoagulationOrde red By: Maggy Lancaster on 01-22-2025 aPTT Coag (PPP) [Time] 48.1 s High 20.0 - 30.5 s [facility] INR Coag (PPP) [Relative time] 5.5 {INR} Critically high 0.9 - 1.1 [facility] PT Coag (Bld) [Time] 52.6 s High 9.0 - 12.0 s [facility] - CoagulationOrde red By: Michelle Olmstead on 01-22-2025 PT Coag (Bld) [Time] 75.4 s High 9.0 - 12.0 s [facility] - Hematology and Cell countson 01-22-2025 Hemoglobin (Bld) [Mass/Vol] 7.7 g/dL Low 13.0 - 18.0 g/dL [facility] Magnesium [Mass/Vol]on 01-22 Interpretation and review of laboratory results Normal [facility] No Panel Informationon 01-22 Interpretation and review of laboratory results Abnormal [facility] Interpretation and review of laboratory results Abnormal [facility] Blood Expiration Date [id number] [facility] Status Transfused [facility] Product Blood Type 6200 [facility] PRODUCT CODE [id number] [facility] Unit ABO A [facility] Unit Number [id number] [facility] Unit RH Positive [facility] Unit Volume 209 ml [facility] Interpretation and review of laboratory results Normal [facility] Interpretation and review of laboratory results Normal [facility] Interpretation and review of laboratory results Abnormal [facility] Interpretation and review of laboratory results Abnormal [facility] Interpretation and review of laboratory results Normal [facility] No Panel InformationOrdered By: Maggy Lancaster on 01-22-2025 Interpretation and review of laboratory results Abnormal [facility] Nursing Noteon 01-22-2025 Nursing Note Normal [facility] PROTIME AND APTTon aPTT Coag (Bld) [Time] 42.7 s High 20.0-30.5 [facility] Comment on above: Order Comment: Recom mend 15 to 30 minutes post transfusion Performed By: #### L [id number] ####Specialized Language Instructor: DOMENICA JARA ([id number])[address] INR Coag (PPP) [Relative time] 3.1 {INR} High 0.9-1.1 [facility] Comment on above: Order [...] prevent Myocardial Infarction Performed By: #### L [id number] ####Specialized Language Instructor: DOMENICA JARA ([id number])[facility])[address] [place] [address] PT Coag (PPP) [Time] 31.0 s High 9.0-12.0 [facility] Comment on above: Order Comment: Recom mend 15 to 30 minutes post transfusion Performed By: #### L [id number] ####Specialized Language Instructor: DOMENICA JARA ([id number])[facility] ([facility])[address] [place] [address] aPTT Coag (Bld) [Time] 48.1 s High 20.0-30.5 [facility] Comment on above: Performed By: #### L [id number] ####Specialized Language Instructor: DOMENICA JARA ([phone])[facility] ([facility])[address] [place] [address] INR Coag (PPP) [Relative time] 5.5 {INR} Critically high 0.9-1.1 [facility] Comment on above: Result Comment: Vaguhn mmended Anticoagulant Therapy: SEE BELOW----- INR of [...] prevent Myocardial Infarction Performed By: #### L [id number] ####Specialized Language Instructor: DOMENICA JARA ([id number])[facility] ([facility])[address] [place] [address] PT Coag (PPP) [Time] 52.6 s High 9.0-12.0 [facility] Comment on above: Performed By: #### L [id number] ####Specialized Language Instructor: DOMENICA JARA ([id number])[facility] ([facility])[address] [place] [address] PT Coag (Bld) [Time]Ordered By: Michelle Olmstead on 01-22-2025 INR Coag (PPP) [Relative time] 8.1 {INR} Critically high 0.9 - 1.1 [facility] Interpretation and review of laboratory results Abnormal [facility] Phosphate [Moles/Vol]on 12-27 Phosphate [Mass/Vol] 6.8 mg/dL High 2.3 - 4 .7 mg/dL [facility] Progress Noteon 01-22-2025 Progress Note Normal [facility] Progress Note Normal [facility] Progress Note Normal [facility] ZOË TRAUMA PANELon 025 APTEM A10 72 mm High 50-70 [facility] Comment on above: Performed By: #### L [id number] ####Specialized Language Instructor: DOMENICA JARA ([id number])[facility] ([facility])[address] [place] [address] [place] APTEM A20 75 mm High 50-70 [facility] Comment on above: Performed By: #### L [id number] ####Specialized Language Instructor: DOMENICA JARA ([id number])[facility] ([facility])[address] [place] [address] [place] APTEM ALPHA 82 DEGREES High 65-80 [facility] Comment on above: Performed By: #### L [id number] ####Specialized Language Instructor: DOMENICA JARA ([id number])[facility] ([facility])[address] [place] [address] [place] APTEM CLOT FORMATION TIME 44 s Low 48-127 [facility] Comment on above: Performed By: #### L [id number] ####Specialized Language Instructor: DOMENICA JARA ([id number])[facility] ([facility])[address] [place] [address] [place] APTEM CLOTTING TIME 232 s High 43-82 [facility] Comment on above: Performed By: #### L [id number] ####Specialized Language Instructor: DOMENIAC JARA ([id number])[facility] ([facility])[address] [place] [address] [place] aPTT Coag (Bld) [Time]on aPTT Coag (PPP) [Time] 46 s High 20.0 - 30.5 s [facility] Basic metabolic 1998 panelOr dered By: Jarred José on 01-21-2025 Anion gap [Moles/Vol] 15 mmol/L High 3 - 13 mmol/L [facility] Calcium [Mass/Vol] 9.9 mg/dL 8.4 - 10. 2 mg/dL [facility] Chloride [Moles/Vol] 96 mmol/L Low 98 - 10 7 mmol/L [facility] CO2 [Moles/Vol] 24 mmol/L 22 - 29 mmol/L [facility] Creatinine [Mass/Vol] 2.99 mg/dL High 0.72 - 1.25 mg/dL [facility] GFR/1.73 sq M.predicted (S/P/Bld) [Vol rate/Area] 23.3 mL/min Low - PINF [facility] Glucose [Mass/Vol] 60 mg/dL Low 74 - 100 mg/dL [facility] Interpretation and review of laboratory results Abnormal [facility] Potassium [Moles/Vol] 4.3 mmol/L 3.5 - 5.1 mmol/L [facility] Sodium [Moles/Vol] 135 mmol/L Low 136 - 145 mmol/L [facility] Urea nitrogen [Mass/Vol] 46 mg/dL High 9 - 23 mg/d L [facility] CBC W Auto Differential pane l (Bld)on 01-21-2025 Basophils (Bld) [#/Vol] 0.1 10*3/uL 0.0 - 0.2 10*3/uL [facility] Basophils/100 WBC (Bld) 1 % 0.0 - 2.0 % [facility] Eosinophils (Bld) [#/Vol] 0.4 10*3/uL 0.0 - 0.5 10*3/uL [facility] Eosinophils/100 WBC (Bld) 3.8 % 0.0 - 6.0 % [facility] Erythrocyte distribution width (RBC) [Ratio] 18.6 % High 11.5 - 15.0 % [facility] Hematocrit (Bld) [Volume fraction] 27.3 % Low 40.0 - 52.0 % [facility] Hemoglobin (Bld) [Mass/Vol] 8.3 g/dL Low 13.0 - 18.0 g/dL [facility] Immature granulocytes (Bld) [#/Vol] 0.1 10*3/uL High NINF - 0.1 10*3/uL [facility] Immature granulocytes/100 WBC (Bld) 1.2 % 0.0 - 2.0 % [facility] Interpretation and review of laboratory results Abnormal [facility] Lymphocytes (Bld) [#/Vol] 1.7 10*3/uL 1.0 - 4.3 10*3/uL [facility] Lymphocytes/100 WBC (Bld) 16.5 % 15.0 - 45.0 % [facility] MCH (RBC) [Entitic mass] 27 pg 26. 0 - 34.0 pg [facility] MCHC (RBC) [Mass/Vol] 30.4 % Low 30.5 - 36.0 % [facility] MCV (RBC) [Entitic vol] 88.9 fL 77.0 - 99.0 fL [facility] Monocytes (Bld) [#/Vol] 1.4 10*3/uL High 0.0 - 0.9 10*3/uL [facility] Monocytes/100 WBC (Bld) 14.3 % High 5.0 - 13.0 % [facility] Neutrophils (Bld) [#/Vol] 6.4 10*3/uL 1.8 - 7.5 10*3/uL [facility] Neutrophils/100 WBC (Bld) 63.2 % 38.0 - 82.0 % [facility] Nucleated RBC/100 WBC (Bld) [Ratio] 0 % [facility] Platelet mean volume (Bld) [Entitic vol] 8.7 fL Low 9.0 - 12.7 fL [facility] Platelets (Bld) [#/Vol] 365 10*3/uL 140 - 440 10*3/uL [facility] RBC (Bld) [#/Vol] 3.07 10*6/uL Low 4.40 - 5.9 0 10*6/uL [facility] WBC (Bld) [#/Vol] 10.1 10*3/uL 3.6 - 10.7 10*3/uL [facility] CBC panel Auto (Bld)Ordered By: Piedad Alvarado on 01-21-2025 Erythrocyte distribution width (RBC) [Ratio] 18.6 % High 11.5 - 15.0 % [facility] Hematocrit (Bld) [Volume fraction] 25.3 % Low 40.0 - 52.0 % [facility] Hemoglobin (Bld) [Mass/Vol] 8 g/dL Low 13.0 - 18.0 g/dL [facility] Interpretation and review of laboratory results Abnormal [facility] MCH (RBC) [Entitic mass] 27.7 pg 26. 0 - 34.0 pg [facility] MCHC (RBC) [Mass/Vol] 31.6 % 30.5 - 36.0 % [facility] MCV (RBC) [Entitic vol] 87.5 fL 77.0 - 99.0 fL [facility] Platelet mean volume (Bld) [Entitic vol] 9.1 fL 9.0 - 12.7 fL [facility] Platelets (Bld) [#/Vol] 353 10*3/uL 140 - 440 10*3/uL [facility] RBC (Bld) [#/Vol] 2.89 10*6/uL Low 4.40 - 5.9 0 10*6/uL [facility] WBC (Bld) [#/Vol] 9.2 10*3/uL 3.6 - 10.7 10*3/uL [facility] Hemoglobin (Bld) [Mass/Vol]o n 01-21-2025 Hematocrit (Bld) [Volume fraction] 22.4 % Low 40.0 - 52.0 % [facility] Interpretation and review of laboratory results Abnormal [facility] Laboratory - Chemistry and C hemistry - challengeon 01-21-2025 Glucose [Mass/Vol] 86 mg/dL 70 - 100 mg/dL [facility] Glucose [Mass/Vol] 92 mg/dL 70 - 100 mg/dL [facility] Glucose [Mass/Vol] 92 mg/dL 70 - 100 mg/dL [facility] Glucose [Mass/Vol] 107 mg/dL High 70 - 100 mg/dL [facility] Glucose [Mass/Vol] 129 mg/dL High 70 - 100 mg/dL [facility] Glucose [Mass/Vol] 67 mg/dL Low 70 - 100 mg/dL [facility] Magnesium [Mass/Vol] 2.5 mg/dL 1.6 - 2 .6 mg/dL [facility] Glucose [Mass/Vol] 74 mg/dL 70 - 100 mg/dL [facility] Laboratory - CoagulationOrde red By: Treva Mcfarland on 01-21-2025 PT Coag (Bld) [Time] 73.5 s High 9.0 - 12.0 s [facility] Laboratory - Hematology and Cell countson 01-21-2025 Hemoglobin (Bld) [Mass/Vol] 7.1 g/dL Low 13.0 - 18.0 g/dL [facility] Magnesium [Mass/Vol]on 01-21 Interpretation and review of laboratory results Normal [facility] No Panel Informationon 01-21 Interpretation and review of laboratory results Normal [facility] Interpretation and review of laboratory results Normal [facility] Interpretation and review of laboratory results Normal [facility] Interpretation and review of laboratory results Abnormal [facility] Interpretation and review of laboratory results Abnormal [facility] Interpretation and review of laboratory results Abnormal [facility] Interpretation and review of laboratory results Normal [facility] PT Coag (Bld) [Time]Ordered By: Treva Mcfarland on 01-21-2025 INR Coag (PPP) [Relative time] 7.9 {INR} Critically high 0.9 - 1.1 [facility] Interpretation and review of laboratory results Abnormal [facility] Phosphate [Moles/Vol]on 12-27 Interpretation and review of laboratory results Abnormal [facility] Phosphate [Mass/Vol] 5.3 mg/dL High 2.3 - 4 .7 mg/dL [facility] Basic metabolic 1998 panelon 01-20-2025 Anion gap [Moles/Vol] 15 mmol/L High 3 - 13 mmol/L [facility] Calcium [Mass/Vol] 9.2 mg/dL 8.4 - 10. 2 mg/dL [facility] Chloride [Moles/Vol] 98 mmol/L 98 - 10 7 mmol/L [facility] CO2 [Moles/Vol] 22 mmol/L 22 - 29 mmol/L [facility] Creatinine [Mass/Vol] 4.31 mg/dL High 0.72 - 1.25 mg/dL [facility] GFR/1.73 sq M.predicted (S/P/Bld) [Vol rate/Area] 15 mL/min Low - PINF [facility] Glucose [Mass/Vol] 68 mg/dL Low 74 - 100 mg/dL [facility] Interpretation and review of laboratory results Abnormal [facility] Potassium [Moles/Vol] 4.8 mmol/L 3.5 - 5.1 mmol/L [facility] Sodium [Moles/Vol] 135 mmol/L Low 136 - 145 mmol/L [facility] Urea nitrogen [Mass/Vol] 91 mg/dL High 9 - 23 mg/d L [facility] Blood type and Crossmatch pa freida (Bld)on 01-20-2025 ABO group Nom (Bld) O [facility] Blood group antibody screen GEL Ql Negative [facility] D Ag Ql (RBC) Negative [facility] CBC W Auto Differential pane l (Bld)Ordered By: Haley Vitale on 01-20-2025 Basophils (Bld) [#/Vol] 0.1 10*3/uL 0.0 - 0.2 10*3/uL [facility] Basophils/100 WBC (Bld) 1.1 % 0.0 - 2.0 % [facility] Eosinophils (Bld) [#/Vol] 0.5 10*3/uL 0.0 - 0.5 10*3/uL [facility] Eosinophils/100 WBC (Bld) 4.5 % 0.0 - 6.0 % [facility] Erythrocyte distribution width (RBC) [Ratio] 18.3 % High 11.5 - 15.0 % [facility] Hematocrit (Bld) [Volume fraction] 21.3 % Low 40.0 - 52.0 % [facility] Hemoglobin (Bld) [Mass/Vol] 6.6 g/dL Critically low 13.0 - 18.0 g/dL [facility] Immature granulocytes (Bld) [#/Vol] 0.1 10*3/uL High NINF - 0.1 10*3/uL [facility] Immature granulocytes/100 WBC (Bld) 1 % 0.0 - 2.0 % [facility] Interpretation and review of laboratory results Abnormal [facility] Lymphocytes (Bld) [#/Vol] 1.2 10*3/uL 1.0 - 4.3 10*3/uL [facility] Lymphocytes/100 WBC (Bld) 11.6 % Low 15.0 - 45.0 % [facility] MCH (RBC) [Entitic mass] 27.4 pg 26. 0 - 34.0 pg [facility] MCHC (RBC) [Mass/Vol] 31 % 30.5 - 36.0 % [facility] MCV (RBC) [Entitic vol] 88.4 fL 77.0 - 99.0 fL [facility] Monocytes (Bld) [#/Vol] 1.1 10*3/uL High 0.0 - 0.9 10*3/uL [facility] Monocytes/100 WBC (Bld) 10.1 % 5.0 - 13.0 % [facility] Neutrophils (Bld) [#/Vol] 7.5 10*3/uL 1.8 - 7.5 10*3/uL [facility] Neutrophils/100 WBC (Bld) 71.7 % 38.0 - 82.0 % [facility] Nucleated RBC/100 WBC (Bld) [Ratio] 0 % [facility] Platelet mean volume (Bld) [Entitic vol] 9 fL 9.0 - 12.7 fL [facility] Platelets (Bld) [#/Vol] 279 10*3/uL 140 - 440 10*3/uL [facility] RBC (Bld) [#/Vol] 2.41 10*6/uL Low 4.40 - 5.9 0 10*6/uL [facility] WBC (Bld) [#/Vol] 10.5 10*3/uL 3.6 - 10.7 10*3/uL [facility] CT Abdomen and Pelvis W cont rast Dimitrios 01-20-2025 [facility] RADI[facility] Radiology Study observation (narrative) [facility] CT Abdomen and Pelvis W cont rast IVOrdered By: Karly Parker on 01-20-2025 [facility] Work Phone: Hemoglobin (Bld) [Mass/Vol]o n 01-20-2025 Hematocrit (Bld) [Volume fraction] 25.8 % Low 40.0 - 52.0 % [facility] Interpretation and review of laboratory results Abnormal [facility] Hematocrit (Bld) [Volume fraction] 25.7 % Low 40.0 - 52.0 % [facility] Interpretation and review of laboratory results Abnormal [facility] Hematocrit (Bld) [Volume fraction] 25.8 % Low 40.0 - 52.0 % [facility] Interpretation and review of laboratory results Abnormal [facility] Laboratory - Chemistry and C hemistry - challengeon 01-20-2025 Magnesium [Mass/Vol] 2.8 mg/dL High 1.6 - 2 .6 mg/dL [facility] Laboratory - Hematology and Cell countson 01-20-2025 Hemoglobin (Bld) [Mass/Vol] 8.3 g/dL Low 13.0 - 18.0 g/dL [facility] Hemoglobin (Bld) [Mass/Vol] 8.2 g/dL Low 13.0 - 18.0 g/dL [facility] Hemoglobin (Bld) [Mass/Vol] 8.2 g/dL Low 13.0 - 18.0 g/dL [facility] Magnesium [Mass/Vol]on 01-20 [facility] No Panel Informationon 01-20 Interpretation and review of laboratory results Abnormal [facility] Phosphate [Moles/Vol]on 12-27 Phosphate [Mass/Vol] 6.1 mg/dL High 2.3 - 4 .7 mg/dL [facility] No Panel Informationon 01-19 P Ama 69 degrees [facility] [place] Interval 148 ms [facility] QRS Ama 93 degrees [facility] QRSD [facility]val 413 ms [facility] QTC Interval 515 ms [facility] T Wave Ama 87 degrees [facility] CV EPIPHANY [facility] 4h Troponin HS (Serial 3rd Troponin) 94 ng/L High NINF - 35 ng/L [facility] Interpretation and review of laboratory results Abnormal [facility] 2h Troponin HS (Serial 2nd Troponin) 106 ng/L High NINF - 35 ng/L [facility] Interpretation and review of laboratory results Abnormal [facility] Vital signson 01-19-2025 Heart rate 93 /min bpm [facility] Airwayon 10-12-2024 Rudolph German CRNA 10/12/2024 7:56 AM Airway Date/Time: 10/12/2024 7:38 AM Urgency: scheduled Airway not difficult General Information and Staff Patient location during procedure: Procedural Anesthesiologist: Vincent Wilson MD Resident/FAILURE ANALYSIS TECHNICIAN: Rudolph German CRNA Performed: anesthesiologist Indications [...] 21 Number of attempts at approach: 1 [facility] Arterial Lineon 10-12-2024 Rudolph German CRNA 10/12/2024 [...] procedure well with no complications. Staffing Performed: FAILURE ANALYSIS TECHNICIAN Resident/FAILURE ANALYSIS TECHNICIAN: Rudolph German CRNA [facility] Central Venous Lineon 2024 Rudolph German CRNA [...] during the procedure: no complications. Staffing Performed: FAILURE ANALYSIS TECHNICIAN Resident/FAILURE ANALYSIS TECHNICIAN: Rudolph German CRNA [facility] No Panel Informationon 10-[address] [facility] [address] Head WO contraston 2024 No acute intracranial hemorrhage or large territorial infarct. Nonspecific small air locules within the scalp adjacent to the right temporal bone and within the right artificial insemination technician space. Pneumatized secretions within the maxillary sinuses may correspond with acute sinusitis in the appropriate clinical setting. Report Dictated on Electronically Signed By: Yvonne Abraham DO Electronically Signed Date/Time: 10/03/2024 2:14 PM [facility] Patient Name: JUN SNYDER : 1965 Exam Date/Time: 10/03/2024 11:26 Procedure: CT HEAD [...] right temporal bone and within the right artificial insemination technician space. [facility] [employer] [facility] Yvonne Abraham DO - 10/03/2024 [facility] 1965 [id number] Exam Date/Time: 10/03/2024 11:26 Procedure: CT HEAD [...] right temporal bone and within the right artificial insemination technician space. IMPRESSION: No acute intracranial hemorrhage or large territorial infarct. Nonspecific small air locules within the scalp adjacent to the right temporal bone and within the right artificial insemination technician space. Pneumatized secretions within the maxillary sinuses may correspond with acute sinusitis in the appropriate clinical setting. Report Dictated on Electronically Signed By: Yvonne Abraham DO Electronically Signed Date/Time: 10/03/2024 2:14 PM EST [facility] Radiology Study observation (narrative) [facility] Head WO contrastOrdered B y: Yvonne Abraham on 10-03-2024 [employer] Work Phone: XR Chest Single viewon 10-03 No focal consolidation or pulmonary edema. Report Dictated on Electronically Signed By: Bob Ken MD Electronically Signed Date/Time: 10/03/2024 12:22 PM EST [facility] Patient Name: JUN SNYDER : [...] change of the thoracic spine is noted. [facility] Bob Ken MD - 10/03/2024 [...] Electronically Signed Date/Time: 10/03/2024 12:22 PM EST [facility] Radiology Study observation (narrative) [facility] XR Chest Single viewOrdered By: Bob Ken on 10-03-2024 [facility] Work Phone: ECG 12 leadon 08-28-2024 Sinus Rhythm -Incomplete right bundle branch block. -Left atrial enlargement. Voltage criteria for LVH (S(V1)+R(V6) exceeds 3.50 mV). -ST depression -Seen with left ventricular hypertrophy (strain) -consider ischemia. [facility] CNPAllison 04-12-2024 [facility] Telephone (TXCTGL) LILLIANJUN CRUZ ([id number]) 1965 M Date Time Provider Department 04/12/24 [...] Status:Closed by LANIE LUIS on 04/12/24 [facility]on 11-12-2023 Sinus Rhythm -Left atrial enlargement. IRBBB LVH with repolarization [facility] [employer] [facility] ECG 12 leadOrdered By: Michaela Coombs on 11-12-2023 [employer] Work Phone: Basic metabolic 1998 panelon 08-17-2023 Anion gap [Moles/Vol] 15 mmol/L High 3 - 13 mmol/L [employer] Calcium [Mass/Vol] 8.7 mg/dL 8.4 - 10. 4 mg/dL [employer] Chloride [Moles/Vol] 94 mmol/L Low 98 - 10 7 mmol/L [employer] CO2 [Moles/Vol] 26 mmol/L 22 - 30 mmol/L [employer] Creatinine [Mass/Vol] 6.78 mg/dL High 0.66 - 1.25 mg/dL [facility] R[facility] GFR/1.73 sq M.predicted MDRD (S/P/Bld) [Vol rate/Area] 8.8 mL/min/{1.73_m2} Low - PINF [facility] Comment on above: Calculation based on the Chronic Kidney Disease Epidemiology Collaboration (CKD-EPI) equation refit without adjustment for race Glucose [Mass/Vol] 102 mg/dL High 70 - 100 mg/dL [facility] Interpretation and review of laboratory results Abnormal [facility] Potassium [Moles/Vol] 5.0 mmol/L 3.5 - 5.1 mmol/L [facility] Sodium [Moles/Vol] 134 mmol/L Low 135 - 145 mmol/L [facility] Urea nitrogen [Mass/Vol] 46 mg/dL High 9 - 20 mg/d L [facility] Laboratory - Chemistry and C hemistry - challengeon 08-17-2023 Magnesium [Mass/Vol] 2.1 mg/dL 1.6 - 2 .3 mg/dL [facility] TSH Qn 0.981 m[IU]/L [facility] h TSH Qn 1.190 m[IU]/L [facility] Troponin I.cardiac [Mass/Vol] 0.094 ng/mL High NINF - 0.034 ng/mL [facility] Magnesium [Mass/Vol]on 08-17 Interpretation and review of laboratory results Normal [facility] [employer] [facility] No Panel InformationOrdered By: Ruy Milton on 08-17-2023 P Ama degrees [employer] Work Phone: [place] Interval ms [employer] Work Phone: QRS Ama 61 degrees [employer] Work Phone: QRSD Interval 114 ms [facility] Work Phone: QT Interval 364 ms [employer] Work Phone: QTC Interval 491 ms [employer] Work Phone: T Wave Ama -20 degrees [employer] Work Phone: [employer] Work Phone: No Panel Informationon 08-17 ATRIAL [...] On 08-17-2023 6:57:31 EST by Ruy Milton [facility] TSH Qnon 08-17-2023 Interpretation and review of laboratory results Normal [facility] Interpretation and review of laboratory results Normal [facility] Troponin I.cardiac [Mass/Vol ]on 08-17-2023 Interpretation and review of laboratory results Abnormal [facility] Patients with high levels of Biotin oral intake (ie >5 mg/day) may have falsely decreased Troponin levels. [facility] US Heart TransthoracicOrdere d By: Jr Shah on 08-17-2023 Ao Root Index 1.58 cm[facility]2 [facility] Work [facility]: Aortic Root 3.3 cm [facility] Work Phone: Ascending Aorta 3.3 cm [facility] Work Phone: Ascending Aorta Index 1.58 cm/m2 [facility] Work Phone: AV Area by Peak Velocity 1.1 cm2 [facility] Work Phone: AV Area by VTI 1.1 cm2 [facility] Work Phone: AV AT 97.05 ms [facility] Work Phone: AV Mean Gradient 34 mmHg [facility] Work Phone: AV Mean Velocity 2.7 m/s [facility] Work Phone: AV Peak Gradient 59 mmHg [facility] Work Phone: AV Peak Velocity 3.8 m/s [facility] al[facility] Work Phone: [phone] AV Velocity Ratio 0.26 [facility] Work Phone: [phone] AV VTI 84.0 cm [facility] Work Phone: [phone] MALU/BSA Peak Velocity 0.5 cm2/m2 [facility] Work Phone: [phone] MALU/BSA VTI 0.5 cm2/m2 [facility] Work Phone: E/E' Lateral 11.44 [facility] Work Phone: [phone] E/E' Ratio (Averaged) 13.08 [facility] Work Phone: [phone] E/E' Septal 14.71 [facility] Work Phone: [phone] EF BP 62 % 55 - 100 % [facility] Work Phone: Est. RA Pressure 0 mmHg [facility] alth Work Phone: [phone] Fractional Shortening 2D 30 % 28 - 44 % [facility] Work Phone: [phone] Interpretation and review of laboratory results Abnormal [facility] Work Phone: [phone] IVC Diameter 1.1 cm [facility] Work Phone: IVSd 1.1 cm Abnormal 0.6 - 1.0 cm [facility] Work Phone: [phone] LA Diameter 4.0 cm [facility] Work Phone: [phone] LA Size Index 1.91 cm/m2 [facility] Work Phone: [phone] LA Volume 2C 66 mL Abnormal 18 - 58 mL [facility] Work Phone: [phone] LA Volume 4C 71 mL Abnormal 18 - 58 mL [facility] Work Phone: LA Volume A/L 75 mL [facility] Work Phone: LA Volume BP 69 mL Abnormal 18 - 58 mL [facility] Work Phone: [phone] LA Volume Index 2C 32 mL/m2 16 - 34 mL/m2 [facility] Work Phone: LA Volume Index 4C 34 mL/m2 16 - 34 mL/m2 [facility] Work Phone: LA Volume Index A/L 36 mL/m2 16 - 34 mL/m2 [facility] Work Phone: LA Volume Index BP 33 ml/m2 16 - 34 ml/m2 [facility] Work Phone: LA/AO Root Ratio 1.21 [facility] Work Phone: LV E' Lateral Velocity 9 cm/s [place] [facility] Work Phone: LV E' Septal Velocity 7 cm/s [facility] Work Phone: LV EDV A2C 104 mL [facility] Work Phone: LV EDV A4C 89 mL [facility] Work Phone: LV EDV BP 97 mL 67 - 155 mL [facility] Work Phone: LV EDV Index A2C 50 mL/m2 [facility] Work Phone: LV EDV Index A4C 43 mL/m2 [facility] Work Phone: LV EDV Index BP 46 mL/m2 [facility] Work Phone: LV Ejection Fraction A2C 61 % [facility] Work Phone: LV Ejection Fraction A4C 64 % [facility] Work Phone: LV ESV A2C 41 mL [facility] Work Phone: LV ESV A4C 32 mL [facility] Work Phone: LV ESV BP 37 mL 22 - 58 mL [facility] Work Phone: LV ESV Index A2C 20 mL/m2 [facility] Work Phone: LV ESV Index A4C 15 mL/m2 [facility] Work Phone: LV ESV Index BP 18 mL/m2 [facility] Work Phone: LV Mass 2D 173.6 g 88 - 224 g [facility] Work Phone: LV Mass 2D Index 83.1 g/m2 49 - 115 g/m2 [facility] Work Phone: LV RWT Ratio 0.56 [facility] Work Phone: LVIDd 4.3 cm 4.2 - 5.9 cm [facility] Work Phone: LVIDd Index 2.06 cm/m2 [facility] Work Phone: LVIDs 3.0 cm [facility] Work Phone: LVIDs Index 1.44 cm/m2 [facility] Work Phone: LVOT Area 4.2 cm2 [facility] Work Phone: [phone] LVOT Cardiac Output 7.6 liter/minute [facility] Work Phone: LVOT Diameter 2.3 cm [facility] Cardiocoret [facility] Work Phone: [phone] LVOT Mean Gradient 2 mmHg [facility] Work Phone: LVOT Peak Gradient 4 mmHg [facility] Work Phone: [phone] LVOT Peak Velocity 1.0 m/s [facility] Work Phone: [phone] LVOT Stroke Volume Index 46.5 mL/m2 [facility] Work Phone: [phone] LVOT SV 97.2 ml [facility] Work Phone: [phone] LVOT VTI 23.4 cm [facility] Work Phone: [phone] LVOT:AV VTI Index 0.28 [facility] Work Phone: LVPWd 1.2 cm Abnormal 0.6 - 1.0 cm [facility] Work Phone: [phone] MV A Velocity 0.79 m/s [facility] Work Phone: [phone] MV Area by PHT 1.9 cm2 [facility] Work Phone: [phone] MV E Velocity 1.03 m/s [facility] Work Phone: [phone] MV E Wave Deceleration Time 278.6 ms [facility] Work Phone: MV E/A 1.30 [facility] Work Phone: MV Mean Gradient 3 mmHg [facility] Work Phone: [phone] MV Peak Gradient 6 mmHg [facility] Work Phone: MV PHT 113.0 ms [facility] Work Phone: RA Area 4C 79.9 mL [facility] Work Phone: [phone] RA Area 4C 77.7 mL [facility] Work Phone: RV Basal Dimension 4.6 cm [facility] Work Phone: RV Mid Dimension 3.3 cm [facility] Work Phone: [phone] RVSP 30 mmHg [facility] Work Phone: Sinotubular Junction 3.0 cm [facility] Work Phone: [phone] TR Max Velocity 2.72 m/s [facility] Work Phone: [phone] TR Peak Gradient 30 mmHg [facility] Work Phone: [phone] [facility] Work Phone: [phone] US Heart Transthoracicon Aortic Valve: Trileaflet. Moderately thickened [...] on 08-17-2023 Heart rate 109 /min bpm [employer] Work Phone: Basic metabolic 1998 panelon 08-16-2023 Anion gap [Moles/Vol] 15 mmol/L High 3 - 13 mmol/L [facility] Calcium [Mass/Vol] 9.1 mg/dL 8.4 - 10. 4 mg/dL [facility] Chloride [Moles/Vol] 93 mmol/L Low 98 - 10 7 mmol/L [employer] [facility] CO2 [Moles/Vol] 25 mmol/L 22 - 30 mmol/L [facility] Creatinine [Mass/Vol] 6.01 mg/dL High 0.66 - 1.25 mg/dL [facility] GFR/1.73 sq M.predicted MDRD (S/P/Bld) [Vol rate/Area] 10.2 mL/min/{1.73_m2} Low - PINF [facility] Comment on above: Calculation based on the Chronic Kidney Disease Epidemiology Collaboration (CKD-EPI) equation refit without adjustment for race Glucose [Mass/Vol] 110 mg/dL High 70 - 100 mg/dL [facility] Interpretation and review of laboratory results Abnormal [facility] Potassium [Moles/Vol] 4.5 mmol/L 3.5 - 5.1 mmol/L [facility] Sodium [Moles/Vol] 133 mmol/L Low 135 - 145 mmol/L [facility] Urea nitrogen [Mass/Vol] 40 mg/dL High 9 - 20 mg/d L [facility] CBC W Auto Differential pane l (Bld)Ordered By: Aric Montejo on 08-16-2023 Basophils (Bld) [#/Vol] 0.1 10*3/uL 0.0 - 0.2 10*3/uL [facility] Basophils/100 WBC (Bld) 1.3 % 0.0 - 2.0 % [facility] Eosinophils (Bld) [#/Vol] 0.5 10*3/uL 0.0 - 0.5 10*3/uL [facility] Eosinophils/100 WBC (Bld) 5.1 % 1.0 - 6.0 % [facility] Erythrocyte distribution width (RBC) [Ratio] 14.7 % High 11.5 - 14.5 % [facility] Hematocrit (Bld) [Volume fraction] 41.6 % 40.0 - 52.0 % [facility] Hemoglobin (Bld) [Mass/Vol] 14.5 g/dL 13.0 - 18.0 g/dL [facility] Interpretation and review of laboratory results Abnormal [facility] Lymphocytes (Bld) [#/Vol] 1.3 10*3/uL 1.0 - 4.3 10*3/uL [facility] Lymphocytes/100 WBC (Bld) 14.2 % Low 20.0 - 40.0 % [facility] MCH (RBC) [Entitic mass] 31.5 pg 26. 0 - 34.0 pg [facility] MCHC (RBC) [Mass/Vol] 34.8 % 32.0 - 36.0 % [facility] MCV (RBC) [Entitic vol] 90.5 fL 80.0 - 98.0 fL [facility] Monocytes (Bld) [#/Vol] 1.3 10*3/uL High 0.0 - 0.8 10*3/uL [facility] Monocytes/100 WBC (Bld) 13.5 % High 2.0 - 10.0 % [facility] Neutrophils (Bld) [#/Vol] 6.2 10*3/uL 1.8 - 7.0 10*3/uL [facility] Neutrophils/100 WBC (Bld) 65.9 % 40.0 - 80.0 % [facility] Nucleated RBC/100 WBC (Bld) [Ratio] 0.1 % [facility] Platelet mean volume (Bld) [Entitic vol] 7.3 fL Low 7.4 - 12.4 fL [facility] Platelets (Bld) [#/Vol] 254 10*3/uL 140 - 440 10*3/uL [facility] RBC (Bld) [#/Vol] 4.60 10*6/uL 4.40 - 5.9 0 10*6/uL [facility] WBC (Bld) [#/Vol] 9.5 10*3/uL 3.6 - 10.7 10*3/uL [facility] Laboratory - Chemistry and C hemistry - challengeon 08-16-2023 Troponin I.cardiac [Mass/Vol] 0.062 ng/mL High [facility] - 0.034 ng/mL [facility] Troponin I.cardiac [Mass/Vol] 0.037 ng/mL High [facility] - 0.034 ng/mL [facility] Troponin I.cardiac [Mass/Vol ]on 08-16-2023 Interpretation and review of laboratory results Abnormal [facility] Patients with high levels of Biotin oral intake (ie >5 mg/day) may have falsely decreased Troponin levels. [facility] Interpretation and review of laboratory results Abnormal [facility] Patients with high levels of Biotin oral intake (ie >5 mg/day) may have falsely decreased Troponin levels. [facility] XR Chest Single viewon 08-16 1. Cardiomegaly. 2. No other acute findings. Report Dictated on Electronically Signed By: Justo Milan MD Electronically Signed Date/Time: 08/16/2023 6:42 PM [facility] Patient Name: JUN SNYDER : 1965 Exam Date/Time: 08/16/2023 18:39 Procedure: XR CHEST 1 VIEW Ordering Provider: GRANADOS SHAYA Reason For Exam: CHEST PAIN CHEST PORTABLE CLINICAL INDICATION: CHEST PAIN TECHNIQUE: Portable chest x-ray(s). COMPARISON: September,. FINDINGS: Mild cardiomegaly, stable. Lungs are grossly clear. No significant vascular congestion. No apparent pneumothorax. Bony thorax grossly unremarkable. [facility] Justo Milan MD - 08/16/2023 Patient [...] Electronically Signed Date/Time: 08/16/2023 6:42 PM EST [facility] Radiology Study observation (narrative) [facility] alth XR Chest Single viewOrdered By: Justo Milan on 08-16-2023 [facility] Work Phone: POTASSIUM BLDon 12-17-2022 Potassium [Moles/Vol] 7.6 mmol/L Critically high 3.7-5.1 [facility] Comment on above: Order Comment: Speci men Type: BLOOD SPECIMEN Ordering Facility: [facility] Address: , , Performed By: #### K 1 #### [facility] CLIA [id number] [address] [place] [address] [place] POTASSIUM BLDon 08-19-2022 Potassium [Moles/Vol] 7.0 mmol/L Critically high 3.7-5.1 [facility] Comment on above: Order Comment: Dominick richards Type: BLOOD SPECIMEN Ordering Facility: [facility] Address: , , Performed By: #### K 1 #### [facility] CLIA [id number] [address] OF [facility] POTASSIUM BLDon 06-16-2022 Potassium [Moles/Vol] 6.3 mmol/L Critically high 3.7-5.1 [facility] Comment on above: Order Comment: Dominick richards Type: BLOOD SPECIMEN [facility] Address: , , Performed By: #### K 1 #### [facility] CLIA [id number] [address] OF [place] [facility] 05-12-2022 Hemoglobin (Bld) [Mass/Vol] 8.4 g/dL Low 13.0-17.0 [facility] Comment on above: Order Comment: Dominick richards Type: BLOOD SPECIMEN Ordering Facility: [facility] Address: , , Performed By: #### 7 18-7 #### [facility] CLIA [id number] [address] [place] [address] OF [facility] XA Special Angiography Proce [facility] 09-15-2021 XA Special Angiography Procedure Patient Name: JUN SNYDER Special Procedures ACCESSION EXAM DATE/TIME PROCEDURE ORDERING PROVIDER [id number] 09/15/2021 11:10 EST XA Special Angiography MD [...] and the needle was removed. A 3 Senegalese dilator was advanced over the wire and [...] after procedure termination. Report Dictated on Workstation: [id number] Final Dictating Physician: MD VICENTE CHRISTOPHER Signed Date and Time: 09/15/2021 12:15 pm Signed by: MD VICENTE CHRISTOPHER Transcribed Date and Time: 09/15/2021 12:16 [facility] IR DIALYSIS INJ W/ANGIOPLAST Yon 11-22-2020 IR DIALYSIS INJ W/ANGIOPLASTY Final Report DATE OF EXAM: Nov 22 2020 2:02PM MNMatt [id number] - IR DIALYSIS INJ W/ANGIOPLASTY / [...] This was initially converted to a 6 [place]egalese sheath and later converted to a 7 [place]alese sheath. Reflux fistulogram for done in several [...] levels with a 6 x 40 mm [place] balloon. This gave minimal improvement. We then exchanged the 6 mm balloon for an 8 x 40 mm [place] balloon. This gave more moderate improvement. At that point we changed the 6 [place]e sheath to a 7 [place]e sheath and placed a 9 x 40 [...] site of puncture trauma. With the 7 [place]e sheath removed pressure was held on the [...] dilation of stenotic lesion as noted above. Community Health Nurse [facility] Transcribe Date/Time: Nov 22 2020 2:07P Dictated by : VINCENT DE LA ROSA MD This examination was interpreted and the report reviewed and electronically signed by: VINCENT DE LA ROSA MD on Nov 22 2020 2:13PM EST Normal [facility] XA SPECIAL ANGIOGRAPHY PROCE [facility] 10-17-2020 Patient Name: GLNEN SNYDER Special Procedures ACCESSION EXAM DATE/TIME PROCEDURE ORDERING PROVIDER [id number] 10/17/2020 08:27 EST XA Special Angiography MD DA, JAYAPRAKASH Procedure BISI Reason For Exam (XA Special [...] KEVIN Transcribed Date and Time: 10/17/2020 1:05 [facility], [facility] Incoming Radiology Results From [facility] - 10/17/2020 1:05 PM EST Patient Name: GLENN SNYDER Special Procedures ACCESSION EXAM DATE/TIME PROCEDURE ORDERING PROVIDER [id number] 10/17/2020 08:27 EST [facility] BISI Reason For Exam (XA Special [...] KEVIN Transcribed Date and Time: 10/17/2020 1:05 [facility] [place] XA Special Angiography Proce dure 10-17-2020 XA Special Angiography Procedure Patient Name: GLENN SNYDER Special Procedures ACCESSION EXAM DATE/TIME PROCEDURE ORDERING PROVIDER [id number] 10/17/2020 08:27 EST XA Special [facility]iography [facility] Procedure BISI Reason For Exam (XA Special [...] Transcribed Date and Time: 10/17/2020 1:05 Normal [facility] Basic Metabolic Panelon 04-27 Anion gap [Moles/Vol] 17 mmol/L Normal 9-18 [facility] Comment on above: Performed By: #### B MP #### [facility] [address] [place], [place] [address] Calcium [Mass/Vol] 9.1 mg/dL Normal 8.5-10.2 [facility] Comment on above: Performed By: #### B MP #### [facility] [address] [place], [place] [address] Chloride [Moles/Vol] 100 mmol/L Normal 97-105 [facility] Comment on above: Performed By: #### B MP #### [facility] [address] [place], [place] [address] CO2 Blood 18 mmol/L Low 22-30 [facility] Comment on above: Performed By: #### B MP #### [facility] [address] [place], [place] [address] Creatinine [Mass/Vol] 13.39 mg/dL High 0.73-1.22 [facility] Comment on above: Performed By: #### B MP #### [facility] [address] [place], [place] [address] Glucose [Mass/Vol] 83 mg/dL Normal 74-99 [facility] Comment on above: Result Comment: The [place] Diabetes Association (ADA) provides guidance for cutoff [...] Standards of Medical Care in Diabetes 2016; [place] [employer]. Diabetes Care. 2016;39(Suppl 1). Performed By: #### B MP #### [facility] [address] [place], [place] [address] Potassium [Moles/Vol] 4.8 mmol/L Normal 3.7-5.1 [facility] Comment on above: Performed By: #### B MP #### [facility] [address] [place], [place] [address] Sodium [Moles/Vol] 135 mmol/L Low 136-144 [facility] Comment on above: Performed By: #### B MP #### [facility] [address] [place], [place] [address] Urea nitrogen [Mass/Vol] 61 mg/dL High 9-24 [facility] Comment on above: Performed By: #### B MP #### [facility] [address] [place] [address] Hemogramon 05-10-2020 Erythrocyte distribution width (RBC) [Ratio] 12.7 % Normal 11.6-14.4 [facility] Comment on above: Performed By: #### C BC1 #### [facility] [address] [place] [address] Hematocrit (Bld) [Volume fraction] 28.4 % Low 40.1-51.0 [facility] Comment on above: Performed By: #### C BC1 #### [facility] [address] [place] [address] Hemoglobin (Bld) [Mass/Vol] 9.2 g/dL Low 13.7-17.5 [facility] Comment on above: Performed By: #### C BC1 #### [facility] [address] [place] [address] MCH (RBC) [Entitic mass] 30.6 pg Normal 25.7-32.2 [facility] Comment on above: Performed By: #### C BC1 #### [facility] [address] [place] [address] MCHC (RBC) [Mass/Vol] 32.4 % Normal 32.3-36.5 [facility] Comment on above: Performed By: #### C BC1 #### [facility] [address] [place] [address] MCV (RBC) [Entitic vol] 94.4 fL Normal 83.2-95.6 [facility] Comment on above: Performed By: #### C BC1 #### [facility] [address] [place], [place] [address] Platelet mean volume (Bld) [Entitic vol] 10.1 fL Normal 8.7-12.0 [facility] Comment on above: Performed By: #### C BC1 #### [facility] [address] [place], [place] [address] Platelets (Bld) [#/Vol] 278 thou/cmm Normal 141-365 [facility] Comment on above: Performed By: #### C BC1 #### [facility] [address] [place] [phone] RBC (Bld) [#/Vol] 3.01 mil/cmm Low 4.63-6.08 [facility] Comment on above: Performed By: #### C BC1 #### [facility] [address] [place] [phone] RDW SD 43.8 fl Normal 36.1-45.8 [facility] Comment on above: Performed By: #### C BC1 #### [facility] [address] [place] [phone] WBC (Bld) [#/Vol] 8.58 thou/cmm Normal 4.23-9.07 [facility] Comment on above: Performed By: #### C BC1 #### [facility] [address] [place] [phone] MDRD GFRon 05-10-2020 GFR/1.73 sq M predicted among non-blacks MDRD (S/P/Bld) [Vol rate/Area] 3.89 mL/min/{1.73_m2} Normal >60mL/min/1.7 3m2 [facility] Comment on above: Result Comment: If t he patient is , multiply the result by 1.210. Performed By: #### G FR #### [facility] [address] [place] [address] Protimeon 05-10-2020 INR Coag (PPP) [Relative time] 0.98 {INR} Normal 0.90-1.30 [facility] Comment on above: Result Comment: Conchita min K Antagonist (VKA) Therapeutic Range: INR 2 to 3 (Target INR of 2.5) Note: For patients treated with VKA drugs, such as warfarin, the [place] [employer] 2012 Guideline recommends [...] Chest 2012; 141:7S-47S Randall RA et al. JAC 2017; 70: 252-289 Performed By: #### P T #### [address] [address] PT Coag (PPP) [Time] 10.6 s Normal 9.7-13.0 [facility] Comment on above: Performed By: #### P T #### [place] [address] Rapid, COVID 19on 03-20-2020 Rapid, COVID 19 Negative Normal Negative [facility] Comment on above: Result Comment: This test has been authorized by the FDA under an Emergency Use Authorization (EUA). Performed By: #### R COVD #### [place] [address] Basic Metabolic Panelon 02-25 Anion gap [Moles/Vol] 14 mmol/L Normal 9-18 [facility] Comment on above: Performed By: #### B MP #### [place] [address] Calcium [Mass/Vol] 10.0 mg/dL Normal 8.5-10.2 [facility] Comment on above: Performed By: #### B MP #### [place] [address] Chloride [Moles/Vol] 95 mmol/L Low 97-105 [facility] Comment on above: Performed By: #### B MP #### [place] [address] CO2 Blood 26 mmol/L Normal 22-30 [facility] Comment on above: Performed By: #### B MP #### [place] [address] Creatinine [Mass/Vol] 9.29 mg/dL High 0.73-1.22 [facility] Comment on above: Performed By: #### B MP #### [address] [place], [place] [address] Glucose [Mass/Vol] 84 mg/dL Normal 74-99 [facility] Comment on above: Result Comment: The [place] Diabetes Association (ADA) provides guidance for cutoff [...] Standards of Medical Care in Diabetes 2016; [place] [employer]. Diabetes Care. 2016;39(Suppl 1). Performed By: #### B MP #### [facility] [address] [place], [place] [address] Potassium [Moles/Vol] 3.7 mmol/L Normal 3.7-5.1 [facility] Comment on above: Performed By: #### B MP #### [facility] [address] [place], [place] [address] Sodium [Moles/Vol] 135 mmol/L Low 136-144 [facility] Comment on above: Performed By: #### B MP #### [facility] [address] [place], [place] [address] Urea nitrogen [Mass/Vol] 32 mg/dL High 9-24 [facility] Comment on above: Performed By: #### B MP #### [facility] [address] [place], [place] [address] Hematologyon 03-13-2020 INR Coag (PPP) [Relative time] 0.96 {INR} 0.90 - 1.30 [facility] PT Coag (PPP) [Time] 10.4 s 9.7 - 1 3.0 sec [facility] Hematocrit (Bld) [Volume fraction] 30.6 % Low 40.1 - 51.0 % [facility] Hemoglobin (Bld) [Mass/Vol] 10.8 g/dL Low 13.7 - 17.5 g/dL [facility] MCH (RBC) [Entitic mass] 31.0 pg 25. 7 - 32.2 pg [facility] MCV (RBC) [Entitic vol] 87.9 fL 83.2 - 95.6 fl [facility] Platelets (Bld) [#/Vol] 269 thou/cmm 141 - 365 thou/cmm [facility] RBC (Bld) [#/Vol] 3.48 mil/cmm Low 4.63 - 6.0 8 mil/cmm [facility] WBC (Bld) [#/Vol] 10.79 thou/cmm High 4.23 - 9 .07 thou/cmm [facility] Hemogramon 03-13-2020 Erythrocyte distribution width (RBC) [Ratio] 13.2 % Normal 11.6-14.4 [facility] Comment on above: Performed By: #### C BC1 #### [facility] [address] [place] [address] Hematocrit (Bld) [Volume fraction] 30.6 % Low 40.1-51.0 [facility] Comment on above: Performed By: #### C BC1 #### [facility] [address] [place] [address] Hemoglobin (Bld) [Mass/Vol] 10.8 g/dL Low 13.7-17.5 [facility] Comment on above: Performed By: #### C BC1 #### [facility] [address] [place], [place] [address] MCH (RBC) [Entitic mass] 31.0 pg Normal 25.7-32.2 [facility] Comment on above: Performed By: #### C BC1 #### [facility] [address] [place], [place] [address] MCHC (RBC) [Mass/Vol] 35.3 % Normal 32.3-36.5 [facility] Comment on above: Performed By: #### C BC1 #### [facility] [address] [place], [place] [address] MCV (RBC) [Entitic vol] 87.9 fL Normal 83.2-95.6 [facility] Comment on above: Performed By: #### C BC1 #### [facility] [address] [place], [place] [address] Platelet mean volume (Bld) [Entitic vol] 10.1 fL Normal 8.7-12.0 [facility] Comment on above: Performed By: #### C BC1 #### [facility] [address] [place], [place] [address] Platelets (Bld) [#/Vol] 269 thou/cmm Normal 141-365 [facility] Comment on above: Performed By: #### C BC1 #### [facility] [address] [place], [place] [address] RBC (Bld) [#/Vol] 3.48 mil/cmm Low 4.63-6.08 [facility] Comment on above: Performed By: #### C BC1 #### [place] [address] RDW SD 42.3 fl Normal 36.1-45.8 [facility] Comment on above: Performed By: #### C BC1 #### [facility] [address] [place], [place] [address] WBC (Bld) [#/Vol] 10.79 thou/cmm High 4.23-9.07 [facility] Comment on above: Performed By: #### C BC1 #### [place] [id number] MDRD GFRon 03-13-2020 GFR/1.73 sq M predicted among non-blacks MDRD (S/P/Bld) [Vol rate/Area] 5.94 mL/min/{1.73_m2} Normal >60mL/min/1.7 3m2 [facility] Comment on above: Result Comment: If t he patient is , multiply the result by 1.210. Performed By: #### G FR #### [facility] [address] [place] [id number] Metabolic Panelon 03-13-2020 Anion gap [Moles/Vol] 14 mmol/L 9 - 18 mmol/L [facility] Calcium [Mass/Vol] 10.0 mg/dL 8.5 - 10. 2 mg/dL [facility] Chloride [Moles/Vol] 95 mmol/L Low 97 - 10 5 mmol/L [facility] CO2 [Moles/Vol] 26 mmol/L 22 - 30 mmol/L [facility] Creatinine [Mass/Vol] 9.29 mg/dL High 0.73 - 1.22 mg/dL [facility] Glucose [Mass/Vol] 84 mg/dL 74 - 99 mg/dL [facility] Potassium [Moles/Vol] 3.7 mmol/L 3.7 - 5.1 mmol/L [facility] Sodium [Moles/Vol] 135 mmol/L Low 136 - 144 mmol/L [facility] Urea nitrogen [Mass/Vol] 32 mg/dL High 9 - 24 mg/d L [facility] Otheron 03-13-2020 GFR/1.73 sq M.predicted MDRD (S/P/Bld) [Vol rate/Area] 5.94 mL/min/{1.73_m2} >60mL/min/1.7 3m2 [facility] Erythrocyte distribution width (RBC) [Entitic vol] 42.3 fL 36.1 - 45.8 fl [facility] Erythrocyte distribution width (RBC) [Ratio] 13.2 % 11.6 - 14.4 % [facility] MCHC (RBC) [Mass/Vol] 35.3 % 32.3 - 36.5 % [facility] Platelet mean volume (Bld) [Entitic vol] 10.1 fL 8.7 - 12.0 fl [facility] Protimeon 03-13-2020 INR Coag (PPP) [Relative time] 0.96 {INR} Normal 0.90-1.30 [facility] Comment on above: Result Comment: [place] min K Antagonist (VKA) Therapeutic Range: INR 2 to 3 (Target INR of 2.5) Note: For patients treated with VKA drugs, such as warfarin, the [place] [employer] 2012 Guideline recommends [...] Chest 2012; 141:7S-47S Randall PATTON et al. JAC 2017; 70: 252-289 Performed By: #### P T #### [facility] [address] [place], [place] [address] PT Coag (PPP) [Time] 10.4 s Normal 9.7-13.0 [facility] Comment on above: Performed By: #### P T #### [facility] [address] [place], [place] [address] US VEIN MAPPING UPPER BILon 02-13-2020 US VEIN MAPPING UPPER HO * * *Final Report* * * DATE OF EXAM: Feb 13 2020 2:22PM [facility] 1085 - US VEIN MAPPING UPPER HO [...] unobstructed. There is no deep venous thrombosis. Community Health Nurse Supervisor: PSCB Transcribe Date/Time: Feb 13 2020 4:27P Dictated by : ANALISA GRANADOS MD This examination was interpreted and the report reviewed and electronically signed by: ANALISA GRANADOS MD on Feb 13 2020 4:30PM EST [facility] Basic Metabolic PanelOrdered By: Darell Sanches on 10-27-2019 Anion gap [Moles/Vol] 18 mmol/L [facility] Work Phone: Calcium [Mass/Vol] 9.2 mg/dL 8.4 - 10. 4 mg/dL [facility] Work Phone: Chloride [Moles/Vol] 93 mmol/L Low 98 - 10 7 mmol/L [facility] Work Phone: CO2 [Moles/Vol] 24 mmol/L 22 - 30 mmol/L [facility] Work Phone: Creatinine [Mass/Vol] 9.99 mg/dL High 0.52 - 1.25 mg/dL [facility] Work Phone: EGFR IF NonAfrican Tunisian 5.5 mL/min >60 [facility] Work Phone: Comment on above: Source- MDRD equatio n with creatinine calibration to IDMS(NKDEP) eGFR not recommended for drug dose adjustment GFR/1.73 sq M.predicted among blacks MDRD (S/P/Bld) [Vol rate/Area] 6.6 mL/min/{1.73_m2} >60 [facility] Work Phone: Glucose [Mass/Vol] 103 mg/dL High 70 - 100 mg/dL [facility] Work Phone: 1 Potassium [Moles/Vol] 4.5 mmol/L 3.5 - 5.1 mmol/L [facility] Work Phone: 1 Sodium [Moles/Vol] 135 mmol/L 135 - 145 mmol/L [facility] Work Phone: 1 Urea nitrogen [Mass/Vol] 49 mg/dL High 7 - 20 mg/d L [facility] Work Phone: 1 CBC Auto DifferentialOrdered By: Darell Sanches on 10-27-2019 Absolute Baso # 0.1 10*3/uL 0 - 0.2 10*3/uL [facility] Work Phone: 1 Absolute Neut # 6.6 10*3/uL 1.8 - 7 10*3/uL [facility] Work Phone: Basophils/100 WBC (Bld) 0.7 % 0 - 2 % [facility] Work Phone: Eosinophils (Bld) [#/Vol] 0.5 10*3/uL 0 - 0.5 10*3/uL [facility] Work Phone: 1 Eosinophils/100 WBC (Bld) 4.9 % 1 - 6 % [facility] Work Phone: Erythrocyte distribution width (RBC) [Ratio] 14.0 % 11.5 - 14.5 % [facility] Work Phone: 1 Granulocytes/100 WBC (Bld) 62.2 % 40 - 80 % [facility] Work Phone: Hematocrit (Bld) [Volume fraction] 28.3 % Low 40 - 52 % [facility] Work Phone: 1 Hemoglobin (Bld) [Mass/Vol] 9.5 g/dL Low 13 - 18 g/dL [facility] Work Phone: Lymphocytes (Bld) [#/Vol] 2.0 10*3/uL 1 - 4.3 10*3/uL [facility] Work Phone: Lymphocytes/100 WBC (Bld) 18.8 % Low 20 - 40 % [facility] Work Phone: 1 MCH (RBC) [Entitic mass] 29.1 pg 26 - 34 pg [facility] Work Phone: MCHC 33.6 % 32 - 36 % [facility] Work Phone: MCV (RBC) [Entitic vol] 86.7 fL 80 - 98 fL S [employer] Work Phone: Monocytes (Bld) [#/Vol] 1.4 10*3/uL High 0 - 0.8 10*3/uL [facility] Work Phone: 1 Monocytes/100 WBC (Bld) 13.4 % High 2 - 10 % S [employer] Work Phone: Platelet mean volume (Bld) [Entitic vol] 8.2 fL 7.4 - 10.4 fL [facility] Work Phone: Platelets (Bld) [#/Vol] 259 10*3/uL 140 - 440 10*3/uL [facility] Work Phone: RBC (Bld) [#/Vol] 3.27 10*6/uL Low 4.4 - 5.9 10*6/uL [facility] Work Phone: WBC (Bld) [#/Vol] 10.6 10*3/uL 3.6 - 10.7 10*3/uL [facility] Work Phone: MAGNESIUMOrdered By: Darell Sanches on 10-27-2019 Magnesium [Mass/Vol] 2.6 mg/dL High 1.6 - 2 .3 mg/dL [facility] Work Phone: No Panel InformationOrdered By: Darell Sanches on 10-27-2019 Interpretation and review of laboratory results Abnormal [facility] Work Phone: Test Performed by [employer] [id number] [place], [place] [address] Work Phone: PhosphorusOrdered By: Darell Sanches on 10-27-2019 Phosphate [Mass/Vol] 9.9 mg/dL High 2.5 - 4 .5 mg/dL [facility] Work [phone] Basic Metabolic PanelOrdered By: Darell Sanches on 10-26-2019 Anion gap [Moles/Vol] 14 mmol/L [facility] Work Phone: [phone] Calcium [Mass/Vol] 9.0 mg/dL 8.4 - 10. 4 mg/dL [facility] Work Phone: [phone] Chloride [Moles/Vol] 94 mmol/L Low 98 - 10 7 mmol/L [facility] Work Phone: CO2 [Moles/Vol] 29 mmol/L 22 - 30 mmol/L [facility] Work Phone: 1 Creatinine [Mass/Vol] 7.06 mg/dL High 0.52 - 1.25 mg/dL [facility] Work Phone: EGFR IF NonAfrican Tunisian 8.2 mL/min >60 [facility] Work Phone: [phone] Comment on above: Source- MDRD equatio n with creatinine calibration to IDMS(NKDEP) eGFR not recommended for drug dose adjustment GFR/1.73 sq M.predicted among blacks MDRD (S/P/Bld) [Vol rate/Area] 9.9 mL/min/{1.73_m2} >60 [facility] Work Phone: Glucose [Mass/Vol] 95 mg/dL 70 - 100 mg/dL [facility] Work Phone: Potassium [Moles/Vol] 4.2 mmol/L 3.5 - 5.1 mmol/L [facility] Work Phone: Sodium [Moles/Vol] 136 mmol/L 135 - 145 mmol/L [facility] Work Phone: Urea nitrogen [Mass/Vol] 27 mg/dL High 7 - 20 mg/d L [facility] Work Phone: [phone] CBC Auto DifferentialOrdered By: Darell Sanches on 10-26-2019 Absolute Baso # 0.1 10*3/uL 0 - 0.2 10*3/uL [facility] Work Phone: [phone] Absolute Neut # 7.1 10*3/uL High 1.8 - 7 10*3/uL [facility] Work Phone: Basophils/100 WBC (Bld) 0.8 % 0 - 2 % S [employer] Work Phone: 1 Eosinophils (Bld) [#/Vol] 0.5 10*3/uL 0 - 0.5 10*3/uL [facility] Work Phone: [phone] 22 Eosinophils/100 WBC (Bld) 4.7 % 1 - 6 % [facility] Work Phone: 1 Erythrocyte distribution width (RBC) [Ratio] 13.9 % 11.5 - 14.5 % [facility] Work Phone: 1 22 Granulocytes/100 WBC (Bld) 63.9 % 40 - 80 % [facility] Work Phone: 1 Hematocrit (Bld) [Volume fraction] 29.2 % Low 40 - 52 % [facility] Work Phone: Hemoglobin (Bld) [Mass/Vol] 9.9 g/dL Low 13 - 18 g/dL [facility] Work Phone: Interpretation and review of laboratory results Abnormal [facility] Work Phone: 1 Lymphocytes (Bld) [#/Vol] 2.0 10*3/uL 1 - 4.3 10*3/uL [facility] Work Phone: Lymphocytes/100 WBC (Bld) 17.8 % Low 20 - 40 % [facility] Work Phone: 1 MCH (RBC) [Entitic mass] 29.5 pg 26 - 34 pg [facility] Work Phone: MCHC 33.9 % 32 - 36 % [facility] Work Phone: MCV (RBC) [Entitic vol] 87.0 fL 80 - 98 fL S [employer] Work Phone: Monocytes (Bld) [#/Vol] 1.4 10*3/uL High 0 - 0.8 10*3/uL [facility] Work Phone: 1 Monocytes/100 WBC (Bld) 12.8 % High 2 - 10 % S [employer] Work Phone: 1 Platelet mean volume (Bld) [Entitic vol] 8.0 fL 7.4 - 10.4 fL [facility] Work Phone: 1 Platelets (Bld) [#/Vol] 262 10*3/uL 140 - 440 10*3/uL [facility] Work Phone: RBC (Bld) [#/Vol] 3.36 10*6/uL Low 4.4 - 5.9 10*6/uL [facility] Work Phone: 1 WBC (Bld) [#/Vol] 11.0 10*3/uL High 3.6 - 10.7 10*3/uL [facility] Work Phone: 1 Test Performed by [employer], [address] [place], [place] [address] [employer] Work Phone: Culture Blood #1Ordered By: Brett Encarnacion on 10-26-2019 Blood Culture, Routine [employer] testing is not routinely performed on Gram positive bacilli. If a Listeria infection is highly suspected, contact the Microbiology laboratory [phone]). Abnormal [employer] Work Phone: 1 Blood Culture, Routine Propionibacterium acnes Abnormal [employer] Work Phone: 1 Blood Culture, Routine Isolated: Contamination likely unless additional blood culture sets are found to be positive with the same organism. [employer] Work Phone: Interpretation and review of laboratory results Abnormal [employer] Work Phone: 1 Test Performed by [employer], [address] [place] [address] Specimen Source Comment:Blood [employer] Work Phone: MAGNESIUMOrdered By: Darell Sanches on 10-26-2019 Magnesium [Mass/Vol] 2.2 mg/dL 1.6 - 2 .3 mg/dL [employer] Work Phone: 1 No Panel InformationOrdered By: Darell Sanches on 10-26-2019 Interpretation and review of laboratory results Abnormal [employer] Work Phone: 1 Test Performed by [employer], [address] [place], [place] [address] [employer] Work Phone: PhosphorusOrdered By: Darell Sanches on 10-26-2019 Phosphate [Mass/Vol] 7.1 mg/dL High 2.5 - 4 .5 mg/dL [facility] Work Phone: US BIOPSY RENAL RIGHT PERCOr dered By: Cindy Patel on 10-26-2019 Patient Name: GLENN SNYDER ---Ultrasound--- Exam Date/Time 10/26/2019 10:57:27 EST Exam US Biopsy Renal Right Ordering Physician MD DA, CINDY MATHEWS Accession Number [id number] CPT4 Codes 91408 (), 17087 () Reason For Exam renal failure Report ULTRASOUND GUIDED RIGHT LOWER POLE KIDNEY BIOPSY Reasons for examination: Acute renal failure. After review of prior studies, patient interview and examination, the risks, benefits, and alternatives of the biopsy procedure were discussed, informed consent was obtained. Tonnage Compilation Clerk US scans of the right kidney were [...] Phone: Mike, [facility] Incoming Rad[facility] Results From [facility] - 10/26/2019 12:05 PM EST Patient Name: GLENN SNYDER ---Ultrasound--- Exam Date/Time 10/26/2019 10:57:27 EST Exam US Biopsy Renal Right Ordering Physician MD DA, CINDY MATHEWS Accession Number [id number] CPT4 Codes 47532 (), 64760 () Reason For Exam renal failure Report ULTRASOUND GUIDED RIGHT LOWER POLE KIDNEY BIOPSY Reasons for examination: Acute renal failure. After review of prior studies, patient interview and examination, the risks, benefits, and alternatives of the biopsy procedure were discussed, informed consent was obtained. Tonnage Compilation Clerk US scans of the right kidney were [...] RICHARD Transcribed Date and Time: 10/26/2019 12:05 [facility] Work Phone: XA SPECIAL ANGIOGRAPHY PROCE DUREOrdered By: Jeana Pedraza on 10-26-2019 Patient Name: GLENN SNYDER ---Special Procedures--- Exam Date/Time 10/26/2019 15:01:32 EST Exam XA Special Angiography Procedure Ordering Physician MD KEILA, JEANA Accession Number [id number] Reason For Exam non tunneled to tunneled cath Report FLUOROSCOPIC AND ULTRASOUND-GUIDED TUNNELED DIALYSIS CATHETER PLACEMENT REMOVAL OF RIGHT INTERNAL JUGULAR TEMPORARY HEMODIALYSIS CATHETER 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 Fluoroscopy time: Acute renal [...] Phone: Mike, [facility] Incoming Radiology Results From [facility] - 10/26/2019 3:29 PM EST Patient Name: GLENN SNYDER ---Special Procedures--- Exam Date/Time 10/26/2019 15:01:32 EST Exam XA Special Angiography Procedure Ordering Physician MD KEILA, AZIZ Accession Number [id number] Reason For Exam non tunneled to tunneled cath Report FLUOROSCOPIC AND ULTRASOUND-GUIDED TUNNELED DIALYSIS CATHETER PLACEMENT REMOVAL OF RIGHT INTERNAL JUGULAR TEMPORARY HEMODIALYSIS CATHETER 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 4 mg/dL [facility] Work Phone: Chloride [Moles/Vol] 95 mmol/L Low 98 - 10 7 mmol/L [facility] Work Phone: CO2 [Moles/Vol] 26 mmol/L 22 - 30 mmol/L [facility] Work Phone: Creatinine [Mass/Vol] 9.71 mg/dL High 0.52 - 1.25 mg/dL [facility] Work Phone: [phone] EGFR IF NonAfrican Tunisian 5.7 mL/min >60 [facility] Work Phone: Comment on above: Source- MDRD equatio n with creatinine calibration to IDMS(NKDEP) eGFR not recommended for drug dose adjustment GFR/1.73 sq M.predicted among blacks MDRD (S/P/Bld) [Vol rate/Area] 6.9 mL/min/{1.73_m2} >60 [facility] Work Phone: [phone] Glucose [Mass/Vol] 96 mg/dL 70 - 100 mg/dL [facility] Work Phone: Potassium [Moles/Vol] 4.3 mmol/L 3.5 - 5.1 mmol/L [facility] Work Phone: Sodium [Moles/Vol] 135 mmol/L 135 - 145 mmol/L [facility] Work Phone: [phone] Urea nitrogen [Mass/Vol] 39 mg/dL High 7 - 20 mg/d L [facility] Work Phone: [phone] CBC Auto DifferentialOrdered By: Darell Sanches on 10-25-2019 Absolute Baso # 0.1 10*3/uL 0 - 0.2 10*3/uL [facility] Work Phone: [phone] Absolute Neut # 6.7 10*3/uL 1.8 - 7 10*3/uL [facility] Work Phone: [phone] Basophils/100 WBC (Bld) 0.9 % 0 - 2 % S [facility] Work Phone: Eosinophils (Bld) [#/Vol] 0.5 10*3/uL 0 - 0.5 10*3/uL [facility] Work Phone: [phone] Eosinophils/100 WBC (Bld) 4.5 % 1 - 6 % [facility] Work Phone: Erythrocyte distribution width (RBC) [Ratio] 13.8 % 11.5 - 14.5 % [facility] Work Phone: [phone] Granulocytes/100 WBC (Bld) 60.1 % 40 - 80 % [facility] Work Phone: 1 Hematocrit (Bld) [Volume fraction] 28.3 % Low 40 - 52 % [employer] Work Phone: 1 Hemoglobin (Bld) [Mass/Vol] 9.7 g/dL Low 13 - 18 g/dL [employer] Work Phone: 1 Interpretation and review of laboratory results Abnormal [employer] Work Phone: 1 Lymphocytes (Bld) [#/Vol] 2.6 10*3/uL 1 - 4.3 10*3/uL [employer] Work Phone: 1 Lymphocytes/100 WBC (Bld) 22.9 % 20 - 40 % [employer] Work Phone: 1 MCH (RBC) [Entitic mass] 30.0 pg 26 - 34 pg [employer] Work Phone: 1 MCHC 34.3 % 32 - 36 % [employer] Work Phone: 1 MCV (RBC) [Entitic vol] 87.3 fL 80 - 98 fL S [employer] Work Phone: 1 Monocytes (Bld) [#/Vol] 1.3 10*3/uL High 0 - 0.8 10*3/uL [employer] Work Phone: 1 Monocytes/100 WBC (Bld) 11.6 % High 2 - 10 % S [employer] Work Phone: 1 Platelet mean volume (Bld) [Entitic vol] 8.1 fL 7.4 - 10.4 fL [employer] Work Phone: 1 Platelets (Bld) [#/Vol] 252 10*3/uL 140 - 440 10*3/uL [employer] Work Phone: 1 RBC (Bld) [#/Vol] 3.24 10*6/uL Low 4.4 - 5.9 10*6/uL [employer] Work Phone: WBC (Bld) [#/Vol] 11.2 10*3/uL High 3.6 - 10.7 10*3/uL [employer] Work Phone: 1 Test Performed by [employer], [address] [place], [place] [id number] [place] [address] Work Phone: 1 MAGNESIUMOrdered By: Darell Sanches on 10-25-2019 Magnesium [Mass/Vol] 2.2 mg/dL 1.6 - 2 .3 mg/dL [facility] Work Phone: No Panel InformationOrdered By: Darell Sanches on 10-25-2019 Interpretation and review of laboratory results Abnormal [facility] Work Phone: Test Performed by [facility], [address] [place], [place] [id number] [place] [address] Work Phone: PhosphorusOrdered By: Darell Sanches on 10-25-2019 Phosphate [Mass/Vol] 9.3 mg/dL High 2.5 - 4 .5 mg/dL [facility] Work Phone: APTTOrdered By: Cindy Patel on 10-24-2019 aPTT Coag (Bld) [Time] 28.5 s 20 - 30.5 s [facility] Work Phone: Comment on above: NOTE: The therapeuti c time for Heparin anticoagulation, based on Xa activity inhibition, is an APTT of 46-80 seconds. Basic Metabolic PanelOrdered By: Darell Sanches on 10-24-2019 Anion gap [Moles/Vol] 10 mmol/L [facility] Work Phone: Calcium [Mass/Vol] 8.6 mg/dL 8.4 - 10. 4 mg/dL [facility] Work Phone: Chloride [Moles/Vol] 94 mmol/L Low 98 - 10 7 mmol/L [facility] Work Phone: CO2 [Moles/Vol] 31 mmol/L High 22 - 30 mmol/L [facility] Work Phone: Creatinine [Mass/Vol] 7.11 mg/dL High 0.52 - 1.25 mg/dL [facility] Work Phone: EGFR IF NonAfrican Tunisian 8.1 mL/min >60 [facility] Work Phone: Comment on above: Source- MDRD equatio n with creatinine calibration to IDMS(NKDEP) eGFR not recommended for drug dose adjustment GFR/1.73 sq M.predicted among blacks MDRD (S/P/Bld) [Vol rate/Area] 9.8 mL/min/{1.73_m2} >60 [facility] Work Phone: Glucose [Mass/Vol] 93 mg/dL 70 - 100 mg/dL [facility] Work Phone: Potassium [Moles/Vol] 4.1 mmol/L 3.5 - 5.1 mmol/L [facility] Work Phone: Sodium [Moles/Vol] 135 mmol/L 135 - 145 mmol/L [facility] Work Phone: Urea nitrogen [Mass/Vol] 28 mg/dL High 7 - 20 mg/d L [facility] Work Phone: CBC Auto DifferentialOrdered By: Darell Sanches on 10-24-2019 Absolute Baso # 0.1 10*3/uL 0 - 0.2 10*3/uL [facility] Work Phone: Absolute Neut # 6.2 10*3/uL 1.8 - 7 10*3/uL [facility] Work Phone: Basophils/100 WBC (Bld) 0.7 % 0 - 2 % [facility] Work Phone: Eosinophils (Bld) [#/Vol] 0.4 10*3/uL 0 - 0.5 10*3/uL [facility] Work Phone: Eosinophils/100 WBC (Bld) 3.7 % 1 - 6 % [facility] Work Phone: Erythrocyte distribution width (RBC) [Ratio] 14.0 % 11.5 - 14.5 % [facility] Work Phone: Granulocytes/100 WBC (Bld) 63.8 % 40 - 80 % [facility] Work Phone: Hematocrit (Bld) [Volume fraction] 27.0 % Low 40 - 52 % [facility] Work Phone: Hemoglobin (Bld) [Mass/Vol] 9.2 g/dL Low 13 - 18 g/dL [facility] Work Phone: Interpretation and review of laboratory results Abnormal [facility] Work Phone: 1 Lymphocytes (Bld) [#/Vol] 1.8 10*3/uL 1 - 4.3 10*3/uL [facility] Work Phone: 1 Lymphocytes/100 WBC (Bld) 18.8 % Low 20 - 40 % [facility] Work Phone: 1 MCH (RBC) [Entitic mass] 29.6 pg 26 - 34 pg [facility] Work Phone: 1 MCHC 34.1 % 32 - 36 % [facility] Work Phone: 1 MCV (RBC) [Entitic vol] 86.9 fL 80 - 98 fL [facility] Work Phone: Monocytes (Bld) [#/Vol] 1.3 10*3/uL High 0 - 0.8 10*3/uL [facility] Work Phone: 1 Monocytes/100 WBC (Bld) 13.0 % High 2 - 10 % [facility] Work Phone: 1 Platelet mean volume (Bld) [Entitic vol] 8.4 fL 7.4 - 10.4 fL [facility] Work Phone: Platelets (Bld) [#/Vol] 245 10*3/uL 140 - 440 10*3/uL [facility] Work Phone: RBC (Bld) [#/Vol] 3.10 10*6/uL Low 4.4 - 5.9 10*6/uL [facility] Work Phone: WBC (Bld) [#/Vol] 9.7 10*3/uL 3.6 - 10.7 10*3/uL [facility] Work Phone: 1 Culture Blood #1Ordered By: Brett Encarnacion on 10-24-2019 Blood Culture, Routine No growth at 5 days. [employer] Work Phone: 1 Test Performed by [employer], [address] [place] [address] Specimen Source Comment:Blood [facility] Work Phone: 1 Glomerular Basement Membrane (GBM) Antibody IgGOrdered By: Randolph Liz on 10-24-2019 GBM Ab, IgG (IFA) Negative Negative NA [employer] Work Phone: Comment on above: INTERPRETIVE INFORMA [...] biopsy. Test developed and characteristics determined by [email or web address]. See Compliance Statement D: [employer] Performed by [email or web address], [address] [place] [address] [email or web address], Malvin Slade MD, Lab. Director [email or web address] By: Darell Sanches on 10-24-2019 Magnesium [Mass/Vol] 2.1 mg/dL 1.6 - 2 .3 mg/dL [facility] Work Phone: No Panel InformationOrdered By: Darell Sanches on 10-24-2019 Interpretation and review of laboratory results Abnormal [facility] Work Phone: Test Performed by [facility], [address] [place] [address] [place], [place] [id number] [place], [place] [address] Work Phone: Test Performed by [facility], [address] [place] [address] [place], [place] [address] [employer] Work Phone: PhosphorusOrdered By: Darell Sanches on 10-24-2019 Phosphate [Mass/Vol] 5.8 mg/dL High 2.5 - 4 .5 mg/dL [facility] Work Phone: Protime-INROrdered By: Darren Patel on 10-24-2019 INR Coag (PPP) [Relative time] 1.1 {INR} [employer] Work Phone: Comment on above: Recommended Anticoag [...] - 12 s [facility] Work Phone: [phone] Comment on above: . Basic Metabolic PanelOrdered By: Darell Sanches on 10-23-2019 Anion gap [Moles/Vol] 17 mmol/L [facility] Work Phone: [phone] Calcium [Mass/Vol] 8.6 mg/dL 8.4 - 10. 4 mg/dL [facility] Work Phone: [phone] Chloride [Moles/Vol] 94 mmol/L Low 98 - 10 7 mmol/L [facility] Work Phone: [phone] CO2 [Moles/Vol] 24 mmol/L 22 - 30 mmol/L [facility] Work Phone: [phone] Creatinine [Mass/Vol] 11.03 mg/dL High 0.52 - 1.25 mg/dL [facility] Work Phone: [phone] EGFR IF NonAfrican Tunisian 4.9 mL/min >60 [facility] Work Phone: [phone] Comment on above: Source- MDRD equatio n with creatinine calibration to IDMS(NKDEP) eGFR not recommended for drug dose adjustment GFR/1.73 sq M.predicted among blacks MDRD (S/P/Bld) [Vol rate/Area] 5.9 mL/min/{1.73_m2} >60 [facility] Work Phone: [phone] Glucose [Mass/Vol] 97 mg/dL 70 - 100 mg/dL [facility] Work Phone: [phone] Potassium [Moles/Vol] 3.9 mmol/L 3.5 - 5.1 mmol/L [facility] Work Phone: [phone] Sodium [Moles/Vol] 135 mmol/L 135 - 145 mmol/L [facility] Work Phone: [phone] Urea nitrogen [Mass/Vol] 61 mg/dL High 7 - 20 mg/d L [facility] Work Phone: [phone] CBC Auto DifferentialOrdered By: Darell Sanches on 10-23-2019 Absolute Baso # 0.1 10*3/uL 0 - 0.2 10*3/uL [facility] Work Phone: Absolute Neut # 7.1 10*3/uL High 1.8 - 7 10*3/uL [facility] Work Phone: 1 Basophils/100 WBC (Bld) 1.0 % 0 - 2 % S [employer] Work Phone: Eosinophils (Bld) [#/Vol] 0.5 10*3/uL 0 - 0.5 10*3/uL [facility] Work Phone: 1 Eosinophils/100 WBC (Bld) 4.7 % 1 - 6 % [employer] Work Phone: Erythrocyte distribution width (RBC) [Ratio] 13.8 % 11.5 - 14.5 % [facility] Work Phone: Granulocytes/100 WBC (Bld) 65.3 % 40 - 80 % [employer] Work Phone: Hematocrit (Bld) [Volume fraction] 27.6 % Low 40 - 52 % [facility] Work Phone: Hemoglobin (Bld) [Mass/Vol] 9.5 g/dL Low 13 - 18 g/dL [facility] Work Phone: Interpretation and review of laboratory results Abnormal [facility] Work Phone: Lymphocytes (Bld) [#/Vol] 1.9 10*3/uL 1 - 4.3 10*3/uL [facility] Work Phone: Lymphocytes/100 WBC (Bld) 17.3 % Low 20 - 40 % [facility] Work Phone: MCH (RBC) [Entitic mass] 29.7 pg 26 - 34 pg [facility] Work Phone: MCHC 34.3 % 32 - 36 % [facility] Work Phone: MCV (RBC) [Entitic vol] 86.6 fL 80 - 98 fL S [employer] Work Phone: Monocytes (Bld) [#/Vol] 1.3 10*3/uL High 0 - 0.8 10*3/uL [facility] Work Phone: 1 Monocytes/100 WBC (Bld) 11.7 % High 2 - 10 % [facility] Work Phone: Platelet mean volume (Bld) [Entitic vol] 7.7 fL 7.4 - 10.4 fL [facility] Work Phone: Platelets (Bld) [#/Vol] 248 10*3/uL 140 - 440 10*3/uL [facility] Work Phone: RBC (Bld) [#/Vol] 3.18 10*6/uL Low 4.4 - 5.9 10*6/uL [facility] Work Phone: 1 WBC (Bld) [#/Vol] 10.8 10*3/uL High 3.6 - 10.7 10*3/uL [facility] Work Phone: Test Performed by [employer], [address] [place] [address] Work Phone: MAGNESIUMOrdered By: Darell Sanches on 10-23-2019 Magnesium [Mass/Vol] 2.1 mg/dL 1.6 - 2 .3 mg/dL [facility] Work Phone: No Panel InformationOrdered By: Darell Sanches on 10-23-2019 Interpretation and review of laboratory results Abnormal [facility] Work Phone: Test Performed by [employer], [address] [place], [place] [address] Work Phone: PhosphorusOrdered By: Darell Sanches on 10-23-2019 Phosphate [Mass/Vol] 9.5 mg/dL High 2.5 - 4 .5 mg/dL [facility] Work Phone: Basic Metabolic PanelOrdered By: Delon Jessica on 10-22-2019 Anion gap [Moles/Vol] 14 mmol/L [facility] Work Phone: Calcium [Mass/Vol] 8.9 mg/dL 8.4 - 10. 4 mg/dL [facility] Work Phone: [phone] Chloride [Moles/Vol] 95 mmol/L Low 98 - 10 7 mmol/L [facility] Work Phone: [phone] CO2 [Moles/Vol] 28 mmol/L 22 - 30 mmol/L [facility] Work Phone: [phone] Creatinine [Mass/Vol] 8.75 mg/dL High 0.52 - 1.25 mg/dL [facility] Work Phone: [phone] IF NonAfrican [place]ian 6.4 mL/min >60 [facility] Work Phone: [phone] Comment on above: Source- MDRD equatio n with creatinine calibration to IDMS(NKDEP) eGFR not recommended for drug dose adjustment GFR/1.73 sq M.predicted among blacks MDRD (S/P/Bld) [Vol rate/Area] 7.7 mL/min/{1.73_m2} >60 [facility] Work Phone: [phone] Glucose [Mass/Vol] 94 mg/dL 70 - 100 mg/dL [facility] Work Phone: [phone] Potassium [Moles/Vol] 4.3 mmol/L 3.5 - 5.1 mmol/L [facility] Work Phone: [phone] Sodium [Moles/Vol] 137 mmol/L 135 - 145 mmol/L [facility] Work Phone: [phone] Urea nitrogen [Mass/Vol] 53 mg/dL High 7 - 20 mg/d L [facility] Work Phone: [phone] Auto DifferentialOrdered By: Delon Jessica on 10-22-2019 Absolute Baso # 0.1 10*3/uL 0 - 0.2 10*3/uL [facility] Work Phone: [phone] Absolute Neut # 5.9 10*3/uL 1.8 - 7 10*3/uL [facility] Work Phone: [phone] Basophils/100 WBC (Bld) 0.9 % 0 - 2 % S [facility] Work Phone: [phone] Eosinophils (Bld) [#/Vol] 0.3 10*3/uL 0 - 0.5 10*3/uL [facility] Work Phone: [phone] Eosinophils/100 WBC (Bld) 3.0 % 1 - 6 % [facility] Work Phone: 1 Erythrocyte distribution width (RBC) [Ratio] 14.2 % 11.5 - 14.5 % [facility] Work Phone: Granulocytes/100 WBC (Bld) 63.0 % 40 - 80 % [facility] Work Phone: Hematocrit (Bld) [Volume fraction] 27.7 % Low 40 - 52 % [facility] Work Phone: Hemoglobin (Bld) [Mass/Vol] 9.4 g/dL Low 13 - 18 g/dL [employer] Work Phone: 1 Interpretation and review of laboratory results Abnormal [employer] Work Phone: 1 Lymphocytes (Bld) [#/Vol] 1.6 10*3/uL 1 - 4.3 10*3/uL [employer] Work Phone: Lymphocytes/100 WBC (Bld) 17.2 % Low 20 - 40 % [employer] Work Phone: MCH (RBC) [Entitic mass] 29.3 pg 26 - 34 pg [employer] Work Phone: MCHC 33.8 % 32 - 36 % [employer] Work Phone: MCV (RBC) [Entitic vol] 86.7 fL 80 - 98 fL [facility] [employer] Work Phone: Monocytes (Bld) [#/Vol] 1.5 10*3/uL High 0 - 0.8 10*3/uL [facility] Work Phone: 22 Monocytes/100 WBC (Bld) 15.9 % High 2 - 10 % [facility] [employer] Work Phone: Platelet mean volume (Bld) [Entitic vol] 8.0 fL 7.4 - 10.4 fL [facility] Work Phone: Platelets (Bld) [#/Vol] 264 10*3/uL 140 - 440 10*3/uL [facility] Work Phone: 22 RBC (Bld) [#/Vol] 3.20 10*6/uL Low 4.4 - 5.9 10*6/uL [facility] Work Phone: 1 WBC (Bld) [#/Vol] 9.3 10*3/uL 3.6 - 10.7 10*3/uL [facility] Work Phone: 1 Test Performed by [employer], [address] [place], [place] [address] [facility] Work Phone: Calcium, IonizedOrdered By: Delon Jessica on 10-22-2019 Interpretation and review of laboratory results Abnormal [facility] Work Phone: 1 Ionized Ca 4.20 mg/dL Low 4.3 - 5.2 mg/dL [facility] Work Phone: 1 pH (Bld) 7.43 [pH] [facility] Work Phone: 1 Test Performed by [employer], [address] [place], [place] [address] [facility] Work Phone: FOLATEOrdered By: Earlene deluna on 10-22-2019 Folate 9.2 ng/mL 2.8 - 20 ng/mL [facility] Work Phone: 1 Glomerular Basement Membrane (GBM) Antibody IgGOrdered By: Jeana Pedraza on 10-22-2019 GBM Ab, IgG (IFA) Negative Negative NA [employer] Work Phone: 1 Comment on above: INTERPRETIVE INFORMA TION: GBM [...] biopsy. Test developed and characteristics determined by [email or web address]. See Compliance Statement D: [employer] Performed by [email or web address], [address] [place] [id number] [email or web address], Malvin Slade MD, Lab. Director Iron and TIBCOrdered By: Al Irving on 10-22-2019 Interpretation and review of laboratory results Abnormal [facility] Work Phone: 1 Iron [Mass/Vol] 64 ug/dL 49 - 181 ug/dL [facility] Work Phone: 1 Sat 27 % 15 - 50 % [facility] Work Phone: TIBC 234 ug/dL Low 261 - 497 ug/dL [facility] Work Phone: 1 Test Performed by [facility], [address] [address] [facility] Work Phone: MagnesiumOrdered By: Delon Jessica on 10-22-2019 Magnesium [Mass/Vol] 2.0 mg/dL 1.6 - 2 .3 mg/dL [facility] Work Phone: No Panel InformationOrdered By: Earlene Irving on 10-22-2019 Test [facility]formed by [facility], [address] [place] [address] [facility] Work Phone: No Panel InformationOrdered By: Delon Jessica on 10-22-2019 Interpretation and review of laboratory results Abnormal [facility] Work Phone: 1 Test Performed by [facility], [address] [place] [address] [facility] Work Phone: PhosphorusOrdered By: Patrick Jessica on 10-22-2019 Phosphate [Mass/Vol] 8.7 mg/dL High 2.5 - 4 .5 mg/dL [facility] Work Phone: T4, FREEOrdered By: Eralene toure on 10-22-2019 Free T4 [Mass/Vol] 1.16 ng/dL 0.78 - 2. 19 ng/dL [facility] Work Phone: Test Performed by [facility], [address] [place] [address] [facility] Work Phone: TSH without ReflexOrdered By : Earlene Irving on 10-22-2019 TSH 0.836 u[IU]/mL 0.465 - 4.68 u[IU]/mL [facility] Work Phone: Test Performed by [facility], [address] [place], [place] [address], [place] [address] [facility] Work Phone: RENAL ARTERIAL DUPLEX COM PLETEOrdered By: Brett Encarnacion on 10-22-2019 [facility] Renal Artery Duplex Ordering Physician: Brett Encarnacion Geographic Information Scientist: Laura Walsh Interpreting Physician: Luciano Shannon Location: [facility] Indications: Hypertension. Smoking history. Acute Kidney [...] supine position. Images were obtained using a Stypi E9 vascular ultrasound machine. The abdominal aorta, [...] + Kidney le (more content not included)... [facility] Work Phone: Apple Mckeon Incoming Cardiology Results From [facility] - 10/22/2019 3:01 PM EST [facility] Renal Artery Duplex Ordering Physician: Brett Encarnacion Geographic Information Scientist: Laura Walsh Interpreting Physician: Luciano Shannon Location: [facility] Indications: Hypertension. Smoking history. Acute Kidney [...] supine position. Images were obtained using a Stypi E9 vascular ultrasound machine. The abdominal aorta, [...] electronically signed by Luciano Shannon 10/22/2019 15:01 [facility] Work Phone: [phone] Vitamin [id number] By: Akin Irving on 10-22-2019 Cobalamin (Vitamin B12) [Mass/Vol] 959 pg/mL High 239 - 931 pg/mL [facility] Work Phone: [phone] Interpretation and review of laboratory results Abnormal [facility] Work Phone: [phone] Basic Metabolic PanelOrdered By: Delon Jessica on 10-21-2019 Anion gap [Moles/Vol] 16 mmol/L [facility] Work Phone: [phone] Calcium [Mass/Vol] 8.7 mg/dL 8.4 - 10. 4 mg/dL [facility] Work Phone: [phone] Chloride [Moles/Vol] 94 mmol/L Low 98 - 10 7 mmol/L [facility] Work Phone: [phone] CO2 [Moles/Vol] 25 mmol/L 22 - 30 mmol/L [facility] Work Phone: [phone] Creatinine [Mass/Vol] 11.16 mg/dL High 0.52 - 1.25 mg/dL [facility] Work Phone: [phone] EGFR IF NonAfrican Tunisian 4.8 mL/min >60 [facility] Work Phone: Comment on above: Source- MDRD equatio n with creatinine calibration to IDMS(NKDEP) eGFR not recommended for drug dose adjustment GFR/1.73 sq M.predicted among blacks MDRD (S/P/Bld) [Vol rate/Area] 5.8 mL/min/{1.73_m2} >60 [facility] Work Phone: [phone] Glucose [Mass/Vol] 103 mg/dL High 70 - 100 mg/dL [facility] Work Phone: [phone] Potassium [Moles/Vol] 4.9 mmol/L 3.5 - 5.1 mmol/L [facility] Work Phone: [phone] Sodium [Moles/Vol] 135 mmol/L 135 - 145 mmol/L [facility] Work Phone: [phone] Urea nitrogen [Mass/Vol] 83 mg/dL High 7 - 20 mg/d L [facility] Work Phone: [phone] Auto DifferentialOrdered By: Delon Jessica on 10-21-2019 Absolute Baso # 0.1 10*3/uL 0 - 0.2 10*3/uL [facility] Work Phone: [phone] Absolute Neut # 6.4 10*3/uL 1.8 - 7 10*3/uL [facility] Work Phone: [phone] Basophils/100 WBC (Bld) 0.9 % 0 - 2 % [facility] Work Phone: [phone] Eosinophils (Bld) [#/Vol] 0.2 10*3/uL 0 - 0.5 10*3/uL [facility] Work Phone: [phone] Eosinophils/100 WBC (Bld) 2.5 % 1 - 6 % [facility] Work Phone: [phone] Erythrocyte distribution width (RBC) [Ratio] 14.8 % High 11.5 - 14.5 % [facility] Work Phone: [phone] Granulocytes/100 WBC (Bld) 64.7 % 40 - 80 % [facility] Work Phone: [phone] Hematocrit (Bld) [Volume fraction] 27.6 % Low 40 - 52 % [facility] Work Phone: [phone] Hemoglobin (Bld) [Mass/Vol] 9.7 g/dL Low 13 - 18 g/dL [facility] Work Phone: [phone] Comment on above: Post Transfusion Interpretation and review of laboratory results Abnormal [employer] Work Phone: [phone] Lymphocytes (Bld) [#/Vol] 1.8 10*3/uL 1 - 4.3 10*3/uL [facility] Work Phone: [phone]) [phone] Lymphocytes/100 WBC (Bld) 18.5 % Low 20 - 40 % [facility] Work Phone: 1) MCH (RBC) [Entitic mass] 30.0 pg 26 - 34 pg [facility] Work Phone: 1) MCHC 35.3 % 32 - 36 % [facility] Work Phone: 1) MCV (RBC) [Entitic vol] 84.8 fL 80 - 98 fL [facility] [employer] Work Phone: 1) Monocytes (Bld) [#/Vol] 1.3 10*3/uL High 0 - 0.8 10*3/uL [facility] Work Phone: 1) Monocytes/100 WBC (Bld) 13.4 % High 2 - 10 % [facility] [employer] Work Phone: 1) Platelet mean volume (Bld) [Entitic vol] 7.8 fL 7.4 - 10.4 fL [facility] Work Phone: 1) Platelets (Bld) [#/Vol] 299 10*3/uL 140 - 440 10*3/uL [facility] Work Phone: 1) RBC (Bld) [#/Vol] 3.25 10*6/uL Low 4.4 - 5.9 10*6/uL [facility] Work Phone: 1) 22 WBC (Bld) [#/Vol] 9.8 10*3/uL 3.6 - 10.7 10*3/uL [facility] Work Phone: 1 Test Performed by [employer], [address] [place] [address] [employer] Work Phone: 1 Calcium, IonizedOrdered By: Delon Jessica on 10-21-2019 Interpretation and review of laboratory results Abnormal [employer] Work Phone: 1 Ionized Ca 4.10 mg/dL Low 4.3 - 5.2 mg/dL [facility] Work Phone: [phone] pH (Bld) 7.41 [pH] [facility] Work Phone: [phone] Test Performed by [employer], [address] [place], [place] [address] [facility] Work Phone: [phone] MagnesiumOrdered By: Delon Jessica on 10-21-2019 Magnesium [Mass/Vol] 1.9 mg/dL 1.6 - 2 .3 mg/dL [facility] Work Phone: [phone] Panel InformationOrdered By: Delon Jessica on 10-21-2019 Interpretation and review of laboratory results Abnormal [facility] Work Phone: [phone] Test Performed by [employer], [facility] [address] [place] [address] [facility] Work Phone: [phone] PERIPHERAL BLOOD SMEAR, PATH REVIEWOrdered By: Jeana Pedraza on 10-21-2019 Peripheral Smear see below [facility] Work Phone: [phone] Comment on above: See report under Fredy gical Pathology. Test Performed by [employer], [facility] [address] [place], [place] [address] [facility] Work Phone: [phone] PhosphorusOrdered By: Patrick Jessica on 10-21-2019 Phosphate [Mass/Vol] 9.2 mg/dL High 2.5 - 4 .5 mg/dL [facility] Work Phone: [phone] US RETROPERITONEAL COMPLETEO rdered By: Randolph Liz on 10-21-2019 Patient Name: GLENN SNYDER ---Ultrasound--- Exam Date/Time 10/21/2019 15:32:01 EST Exam US Retroperitoneal Complete Ordering Physician 59RANDOLPH JEREZ Accession Number [id number] CPT4 Codes 85941 () Reason For Exam blossom Report US [...] Phone: Mike, [facility] Incoming Radiology Results From [facility] - 10/21/2019 7:32 PM EST Patient Name: GLENN SNYDER ---Ultrasound--- Exam Date/Time 10/21/2019 15:32:01 EST Exam US Retroperitoneal Complete Ordering Physician RANDOLPH PALAFOX Accession Number [id number] CPT4 Codes 07113 () Reason For Exam blossom Report US [...] Ordering Physician MD ENCARNACION MATTHEW Accession Number [id number] CPT4 Codes 77728 () Reason For Exam vomiting Report ABDOMEN [...] Time: 10/21/2019 6:30 [facility] Work Phone: Mike, [facility] Incoming Radiology Results From [facility] - 10/21/2019 6:30 PM EST Patient Name: GLENN SNYDER ---Diagnostic Radiology--- Exam Date/Time 10/21/2019 18:02:19 EST Exam CR Abdomen AP Ordering Physician MD ENCARNACION MATTHEW Accession Number [id number] CPT4 Codes 74421 () Reason For Exam vomiting Report ABDOMEN [...] on 10-20-2019 CIARAN TITER <1:40 <1:40 {titer} [facility] Work Phone: 1 [place] [address] [facility] Work Phone: Anti-Neutrophilic Cytoplasmi c AntibodyOrdered By: Jeana Pedraza on 10-20-2019 C-ANCA Not detected Not-Detected {titer} [facility] Work Phone: p-ANCA Titer Not detected Not-Detected {titer} [facility] Work Phone: 1 [place] [address] [employer] Work Phone: Basic Metabolic PanelOrdered By: Brett Encarnacion on 10-20-2019 Anion gap [Moles/Vol] 15 mmol/L [facility] Work Phone: Calcium [Mass/Vol] 8.4 mg/dL 8.4 - 10. 4 mg/dL [facility] Work Phone: Chloride [Moles/Vol] 94 mmol/L Low 98 - 10 7 mmol/L [facility] Work Phone: CO2 [Moles/Vol] 26 mmol/L 22 - 30 mmol/L [facility] Work Phone: Creatinine [Mass/Vol] 9.4 mg/dL High 0.52 - 1.25 mg/dL [facility] Work Phone: EGFR IF NonAfrican Tunisian 5.9 mL/min >60 [facility] Work Phone: Comment on above: Source- MDRD equatio n with creatinine calibration to IDMS(NKDEP) eGFR not recommended for drug dose adjustment GFR/1.73 sq M.predicted among blacks MDRD (S/P/Bld) [Vol rate/Area] 7.1 mL/min/{1.73_m2} >60 [facility] Work Phone: 1 Glucose [Mass/Vol] 110 mg/dL High 70 - 100 mg/dL [facility] Work Phone: Interpretation and review of laboratory results Abnormal [facility] Work Phone: [phone] Potassium [Moles/Vol] 4.0 mmol/L 3.5 - 5.1 mmol/L [facility] Work Phone: [phone] Sodium [Moles/Vol] 135 mmol/L 135 - 145 mmol/L [facility] Work Phone: [phone] Urea nitrogen [Mass/Vol] 76 mg/dL High 7 - 20 mg/d L [facility] Work Phone: Test Performed by [employer] [facility], [address] [place] [id number] [place], [place] [address] Work Phone: [phone] Metabolic PanelOrdered By: Delon Jessica on 10-20-2019 Anion gap [Moles/Vol] 18 mmol/L [facility] Work Phone: [phone] Calcium [Mass/Vol] 7.9 mg/dL Low 8.4 - 10. 4 mg/dL [facility] Work Phone: Chloride [Moles/Vol] 95 mmol/L Low 98 - 10 7 mmol/L [facility] Work Phone: CO2 [Moles/Vol] 24 mmol/L 22 - 30 mmol/L [facility] Work Phone: [phone] Creatinine [Mass/Vol] 13.53 mg/dL High 0.52 - 1.25 mg/dL [facility] Work Phone: [phone] EGFR IF NonAfrican Tunisian 3.9 mL/min >60 [facility] Work Phone: [phone] Comment on above: Source- MDRD equatio n with creatinine calibration to IDMS(NKDEP) eGFR not recommended for drug dose adjustment GFR/1.73 sq M.predicted among blacks MDRD (S/P/Bld) [Vol rate/Area] 4.7 mL/min/{1.73_m2} >60 [facility] Work Phone: [phone] Glucose [Mass/Vol] 102 mg/dL High 70 - 100 mg/dL [facility] Work Phone: [phone] Interpretation and review of laboratory results Abnormal [facility] Work Phone: [phone] Potassium [Moles/Vol] 4.7 mmol/L 3.5 - 5.1 mmol/L [employer] Work Phone: Sodium [Moles/Vol] 136 mmol/L 135 - 145 mmol/L [facility] Work Phone: Urea nitrogen [Mass/Vol] 123 mg/dL High 7 - 20 mg/d L [facility] Work Phone: Test Performed by [employer], [address] [place], [place] [address] [employer] Work Phone: CBC Auto DifferentialOrdered By: Delon Jessica on 10-20-2019 Absolute Baso # 0.0 10*3/uL 0 - 0.2 10*3/uL [facility] Work Phone: Absolute Neut # 6.2 10*3/uL 1.8 - 7 10*3/uL [employer] Work Phone: Basophils/100 WBC (Bld) 0.4 % 0 - 2 % [facility] Work Phone: Eosinophils (Bld) [#/Vol] 0.1 10*3/uL 0 - 0.5 10*3/uL [employer] Work Phone: Eosinophils/100 WBC (Bld) 1.1 % 1 - 6 % [employer] Work Phone: Erythrocyte distribution width (RBC) [Ratio] 13.4 % 11.5 - 14.5 % [employer] Work Phone: Granulocytes/100 WBC (Bld) 69.5 % 40 - 80 % [employer] Work Phone: Hematocrit (Bld) [Volume fraction] 19.3 % Low 40 - 52 % [employer] Work Phone: Hemoglobin (Bld) [Mass/Vol] 6.6 g/dL Critically low 13 - 18 g/dL [employer] Work Phone: Interpretation and review of laboratory results Abnormal [employer] Work Phone: Lymphocytes (Bld) [#/Vol] 1.6 10*3/uL 1 - 4.3 10*3/uL [employer] Work [phone] Lymphocytes/100 WBC (Bld) 18.3 % Low 20 - 40 % [employer] Work Phone: 1 MCH (RBC) [Entitic mass] 29.4 pg 26 - 34 pg [employer] Work Phone: MCHC 34.1 % 32 - 36 % [employer] Work Phone: 1 MCV (RBC) [Entitic vol] 86.2 fL 80 - 98 fL [facility] [employer] Work Phone: Monocytes (Bld) [#/Vol] 1.0 10*3/uL High 0 - 0.8 10*3/uL [employer] Work Phone: Monocytes/100 WBC (Bld) 10.7 % High 2 - 10 % [employer] Work Phone: Platelet mean volume (Bld) [Entitic vol] 7.4 fL 7.4 - 10.4 fL [employer] Work Phone: Platelets (Bld) [#/Vol] 267 10*3/uL 140 - 440 10*3/uL [employer] Work Phone: RBC (Bld) [#/Vol] 2.24 10*6/uL Low 4.4 - 5.9 10*6/uL [employer] Work Phone: WBC (Bld) [#/Vol] 9.0 10*3/uL 3.6 - 10.7 10*3/uL [employer] Work Phone: Calcium, IonizedOrdered By: Delon Jessica on 10-20-2019 Interpretation and review of laboratory results Abnormal [employer] Work Phone: Ionized Ca 3.80 mg/dL Low 4.3 - 5.2 mg/dL [employer] Work Phone: pH (Bld) 7.41 [pH] [employer] Work Phone: Test Performed by [employer], [address] [place] [address] [employer] Work Phone: Hemoglobin and Hematocrit, B loodOrdered By: Brett Encarnacion on 10-20-2019 Hematocrit (Bld) [Volume fraction] 25.2 % Low 40 - 52 % [facility] Work Phone: 1 Hemoglobin (Bld) [Mass/Vol] 9.0 g/dL Low 13 - 18 g/dL [facility] Work Phone: 1 Interpretation and review of laboratory results Abnormal [facility] Work Phone: 1 Test [facility] by [facility], [address] [place] [address] [facility] Work Phone: Hemoglobin and Hematocrit, B loodOrdered By: Delon Jessica on 10-20-2019 Hematocrit (Bld) [Volume fraction] 19.6 % Low 40 - 52 % [facility] Work Phone: 1 Hemoglobin (Bld) [Mass/Vol] 6.7 g/dL Critically low 13 - 18 g/dL [facility] Work Phone: 1 Interpretation and review of laboratory results Abnormal [facility] Work Phone: 1 Test Performed by [facility], [address] [place] [address] [facility] Work Phone: 1 Laboratory - Blood bankOrder ed By: Delon Jessica on 10-20-2019 ABO and Rh group Nom (Bld) 9500 [facility] Work Phone: MagnesiumOrdered By: Delon Jessica on 10-20-2019 Magnesium [Mass/Vol] 1.8 mg/dL 1.6 - 2 .3 mg/dL [facility] Work Phone: No Panel InformationOrdered By: Delon Jessica on 10-20-2019 Test Performed by [facility], [address] [place], [place] [address]A Work Phone: Test Performed by [facility], [address] [place], [place] [address]A Work Phone: PREPARE RBC (CROSSMATCH), 2 UnitsOrdered By: Delon Jessica on 10-20-2019 Blood product unit ID (Dose) [#] [id number] [facility] Work Phone: 1 Blood product unit ID (Dose) [#] [id number] [facility] Work Phone: [phone] Dispense Status Blood Bank transfused [facility] Work Phone: [phone] Expiration Date [id number] [facility] Work Phone: [phone] Product Code Blood Bank [id number] [facility] Work Phone: [phone] [facility] Work Phone: [phone] PhosphorusOrdered By: Patrick Jessica on 10-20-2019 Interpretation and review of laboratory results Abnormal [facility] Work Phone: [phone] Phosphate [Mass/Vol] 12.3 mg/dL High 2.5 - 4 .5 mg/dL [facility] Work Phone: [phone] RBC MORPHOLOGYOrdered By: Caleb Jessica on 10-20-2019 Hypochromia Slight [facility] Work Phone: [phone] Poikilocytes Slight [facility] Work Phone: [phone] RBC morphology finding Nom (Bld) ABNORMAL [facility] Work Phone: [phone] Surgical PathologyOrdered By : Jeana Pedraza on 10-20-2019 Surgical Pathology Report SEE BELOW [facility] Work Phone: [phone] [id number] [facility] PATHOLOGY AND LABORATORY MEDICINE [address] [place], [place] [id number] FINAL PERIPHERAL BLOOD REPORT NAME: GLENN SNYDER : 1965 53 Y M BILLING NO.: [id number] LOCATION: [place] [address] 5 PROCEDURE 10/19/2019 DATE: SURGEON: JEANA PEDRAZA MD RECEIVED DATE: 10/20/2019 ATTENDING BRETT ENCARNACION REPORT DATE: 10/20/2019 : COPIES TO: DIAGNOSIS: NORMOCYTIC ANEMIA WITH ANISOCYTOSIS, INCLUDING SCHISTOCYTES AND MILD AGGLUTINATION, RULE OUT ANEMIA OF CHRONIC INFLAMMATION/RENAL DISEASE, IRON/NUTRITIONAL DEFICIENCIES, COAGULOPATHY AND/OR PARAPROTEINEMIA NO BLASTS OR DYSGRANULOPOIESIS IS SEEN. ACCOUNTANT/ACCOUNTANT Signature> YOHANNES DIAL M.D. CLINICAL INFORMATION: Peripheral [...] characteristics determined by the clinical laboratories of [facility]. They have not been cleared by the [...] specimens. DEPARTMENT OF PATHOLOGY AND LABORATORY MEDICINE [place], [place] [address] [facility] Work Phone: Add On Lab TestOrdered By: Michelle Encarnacion on 10-19-2019 Add On Rejected [facility] Work Phone: 1 Test Performed by [employer], [address] [place], [place] [address] [facility] Work Phone: 1 Add On Lab TestOrdered By: Cecil Nieves on 10-19-2019 Add On Accepted [facility] Work Phone: 1 Comment on above: Specimen available & acceptable for analysis. Test Performed by [employer], [address] [place], [place] [address] [facility] Work Phone: 1 Add On Accepted [facility] Work Phone: 1 Comment on above: Specimen available & acceptable for analysis. Test Performed by [employer], [address] [place], [place] [address] [facility] Work Phone: 1 Basic Metabolic PanelOrdered By: Brett Encarnacion on 10-19-2019 Anion gap [Moles/Vol] 20 mmol/L [facility] Work Phone: 1 Calcium [Mass/Vol] 8.4 mg/dL 8.4 - 10. 4 mg/dL [facility] Work Phone: Chloride [Moles/Vol] 96 mmol/L Low 98 - 10 7 mmol/L [facility] Work Phone: CO2 [Moles/Vol] 18 mmol/L Low 22 - 30 mmol/L [facility] Work Phone: 1 Creatinine [Mass/Vol] 12.26 mg/dL High 0.52 - 1.25 mg/dL [facility] Work Phone: 1 EGFR IF NonAfrican Tunisian 4.3 mL/min >60 [facility] Work Phone: Comment on above: Source- MDRD equatio n with creatinine calibration to IDMS(NKDEP) eGFR not recommended for drug dose adjustment GFR/1.73 sq M.predicted among blacks MDRD (S/P/Bld) [Vol rate/Area] 5.2 mL/min/{1.73_m2} >60 [facility] Work Phone: 1 Glucose [Mass/Vol] 109 mg/dL High 70 - 100 mg/dL [facility] Work Phone: 1 Interpretation and review of laboratory results Abnormal [facility] Work Phone: 1 Potassium [Moles/Vol] 4.4 mmol/L 3.5 - 5.1 mmol/L [facility] Work Phone: 1 Sodium [Moles/Vol] 134 mmol/L Low 135 - 145 mmol/L [facility] Work Phone: 1 Urea nitrogen [Mass/Vol] 118 mg/dL High 7 - 20 mg/d L [facility] Work Phone: 1 Test Performed by [employer], [address] [place], [place] [address] [employer] Work Phone: Blood Occult Stool Screen #1 Ordered By: Callie Nieves on 10-19-2019 Hemoglobin.gastrointesti nal Ql (Stl) Negative Negative NA [facility] Work Phone: Test Performed by [employer], [address] [place], [place] [id number] [place], [place] [address] Work Phone: C3 ComplementOrdered By: Nadia Pedraza on 10-19-2019 C3 Complement 115 mg/dL 85 - 165 mg/dL [facility] Work Phone: C4 ComplementOrdered By: Nadia Pedraza on 10-19-2019 C4 Complement 37 mg/dL 14 - 44 mg/dL [facility] Work Phone: CBC Auto DifferentialOrdered By: Jeana Pedraza on 10-19-2019 Absolute Baso # 0.0 10*3/uL 0 - 0.2 10*3/uL [facility] Work Phone: Absolute Neut # 7.7 10*3/uL High 1.8 - 7 10*3/uL [facility] Work Phone: 22 Basophils/100 WBC (Bld) 0.1 % 0 - 2 % [facility] Work Phone: Eosinophils (Bld) [#/Vol] 0.0 10*3/uL 0 - 0.5 10*3/uL [facility] Work Phone: 22 Eosinophils/100 WBC (Bld) 0.0 % Low 1 - 6 % [facility] Work Phone: 1 Erythrocyte distribution width (RBC) [Ratio] 13.1 % 11.5 - 14.5 % [facility] Work Phone: 1 Granulocytes/100 WBC (Bld) 93.1 % High 40 - 80 % [facility] Work Phone: Hematocrit (Bld) [Volume fraction] 26.9 % Low 40 - 52 % [facility] Work Phone: 1 Hemoglobin (Bld) [Mass/Vol] 9.1 g/dL Low 13 - 18 g/dL [facility] Work Phone: Interpretation and review of laboratory results Abnormal [employer] Work Phone: Lymphocytes (Bld) [#/Vol] 0.4 10*3/uL Low 1 - 4.3 10*3/uL [employer] Work Phone: Lymphocytes/100 WBC (Bld) 5.1 % Low 20 - 40 % [employer] Work Phone: MCH (RBC) [Entitic mass] 29.2 pg 26 - 34 pg [facility] Work Phone: MCHC 33.8 % 32 - 36 % [employer] Work Phone: MCV (RBC) [Entitic vol] 86.5 fL 80 - 98 fL [employer] Work Phone: Monocytes (Bld) [#/Vol] 0.1 10*3/uL 0 - 0.8 10*3/uL [facility] Work Phone: 22 Monocytes/100 WBC (Bld) 1.7 % Low 2 - 10 % [employer] Work Phone: Platelet mean volume (Bld) [Entitic vol] 8.0 fL 7.4 - 10.4 fL [facility] Work Phone: Platelets (Bld) [#/Vol] 246 10*3/uL 140 - 440 10*3/uL [facility] Work Phone: RBC (Bld) [#/Vol] 3.11 10*6/uL Low 4.4 - 5.9 10*6/uL [employer] Work Phone: [phone] WBC (Bld) [#/Vol] 8.3 10*3/uL 3.6 - 10.7 10*3/uL [employer] Work Phone: Test Performed by [employer], [address] [place], [place] [address] [employer] Work Phone: CT Abdomen Pelvis Wo Contras tOrdered By: Callie Nieves on 10-19-2019 Patient Name: GLENN SNYDER ---CT--- Exam Date/Time 10/19/2019 08:12:[address] Abdomen/Pelvis (No PO, No IV) Ordering Physician DO NIEVES DAVID J Accession Number [id number] CPT4 Codes 65534 (CT Abdomen/Pelvis (No PO, No IV)) Reason [...] bilateral renal atrophy. No urologic calcification. 3. Gosq-rc-puakwkec diverticulosis. No acute diverticulitis. Report Dictated on --- Final --- Dictating Physician: MD BUTCHER ANTHONY J Signed Date and Time: 10/19/2019 8:40 am Signed by: MD BUTCHER ANTHONY J Transcribed Date and Time: 10/19/2019 8:41 [facility] Work Phone: Mike, [facility] Incoming Radiology Results From [facility] - 10/19/2019 8:42 AM EST Patient Name: GLENN SNYDER ---CT--- Exam Date/Time 10/19/2019 08:12:[address] Abdomen/Pelvis (No PO, No IV) Ordering Physician DO NIEVES DAVID J Accession Number [id number] CPT4 Codes 38278 (CT Abdomen/Pelvis (No PO, No IV)) Reason [...] bilateral renal atrophy. No urologic calcification. 3. Bwdr-vn-bqrmznzv diverticulosis. No acute diverticulitis. Report Dictated on --- Final --- Dictating Physician: MD HADLEY, ANU Centeno Signed Date and Time: 10/19/2019 8:40 am Signed by: MD BUTCHER ANTHONY J Transcribed Date and Time: 10/19/2019 8:41 [facility] Work Phone: [phone] Comprehensive Metabolic Pane lOrdered By: Callie Nieves on 10-19-2019 Albumin [Mass/Vol] 3.9 g/dL 3.5 - 5 g/dL [facility] Work Phone: ALP [Catalytic activity/Vol] 58 U/L 38 - 126 U/L [facility] Work Phone: [phone] ALT [Catalytic activity/Vol] 27 U/L 13 - 69 U/L [facility] Work Phone: Anion gap [Moles/Vol] 22 mmol/L [facility] Work Phone: [phone] AST [Catalytic activity/Vol] 41 U/L 15 - 46 U/L [facility] Work Phone: [phone] Bilirubin [Mass/Vol] 0.5 mg/dL 0.2 - 1 .3 mg/dL [facility] Work Phone: Calcium [Mass/Vol] 8.0 mg/dL Low 8.4 - 10. 4 mg/dL [facility] Work Phone: Chloride [Moles/Vol] 106 mmol/L 98 - 10 7 mmol/L [facility] Work Phone: CO2 [Moles/Vol] 8 mmol/L Low 22 - 30 mmol/L [facility] Work Phone: Creatinine [Mass/Vol] 17.04 mg/dL High 0.52 - 1.25 mg/dL [facility] Work Phone: [phone] IF NonAfrican Tunisian 3.0 mL/min >60 [facility] Work Phone: [phone] Comment on above: Source- MDRD equatio n with creatinine calibration to IDMS(NKDEP) eGFR not recommended for drug dose adjustment GFR/1.73 sq M.predicted among blacks MDRD (S/P/Bld) [Vol rate/Area] 3.6 mL/min/{1.73_m2} >60 [facility] Work Phone: [phone] Glucose [Mass/Vol] 93 mg/dL 70 - 100 mg/dL [facility] Work Phone: [phone] Interpretation and review of laboratory results Abnormal [facility] Work Phone: [phone] Potassium [Moles/Vol] 6.6 mmol/L Critically high 3.5 - 5.1 mmol/L [facility] Work Phone: [phone] Protein [Mass/Vol] 7.1 g/dL 6.3 - 8.2 g/dL [facility] Work Phone: [phone] Sodium [Moles/Vol] 136 mmol/L 135 - 145 mmol/L [facility] Work Phone: [phone] Urea nitrogen [Mass/Vol] 179 mg/dL High 7 - 20 mg/d L [facility] Work Phone: [phone] [facility] by [facility], [address] [place] [id number] [place], [place] [address] Work Phone: [phone] Albumin [Mass/Vol] 4.3 g/dL 3.5 - 5 g/dL [facility] Work Phone: [phone] [Catalytic activity/Vol] 68 U/L 38 - 126 U/L [facility] Work Phone: [phone] [Catalytic activity/Vol] 31 U/L 13 - 69 U/L [facility] Work Phone: [phone] Anion gap [Moles/Vol] 22 mmol/L [facility] Work Phone: [phone] AST [Catalytic activity/Vol] 38 U/L 15 - 46 U/L [facility] Work Phone: Bilirubin [Mass/Vol] 0.3 mg/dL 0.2 - 1 .3 mg/dL [facility] Work Phone: [phone] Calcium [Mass/Vol] 8.1 mg/dL Low 8.4 - 10. 4 mg/dL [facility] Work Phone: [phone] Chloride [Moles/Vol] 104 mmol/L 98 - 10 7 mmol/L [facility] Work Phone: CO2 [Moles/Vol] 10 mmol/L Low 22 - 30 mmol/L [facility] Work Phone: 1 Creatinine [Mass/Vol] 17.95 mg/dL High 0.52 - 1.25 mg/dL [facility] Work Phone: [phone] IF NonAfrican Tunisian 2.8 mL/min >60 [facility] Work Phone: [phone] Comment on above: Source- MDRD equatio n with creatinine calibration to IDMS(NKDEP) eGFR not recommended for drug dose adjustment GFR/1.73 sq M.predicted among blacks MDRD (S/P/Bld) [Vol rate/Area] 3.4 mL/min/{1.73_m2} >60 [facility] Work Phone: [phone] Glucose [Mass/Vol] 101 mg/dL High 70 - 100 mg/dL [facility] Work Phone: [phone] Interpretation and review of laboratory results Abnormal [facility] Work Phone: Potassium [Moles/Vol] 7.3 mmol/L Critically high 3.5 - 5.1 mmol/L [facility] Work Phone: Protein [Mass/Vol] 7.9 g/dL 6.3 - 8.2 g/dL [facility] Work Phone: [phone] Sodium [Moles/Vol] 136 mmol/L 135 - 145 mmol/L [facility] Work Phone: [phone] Urea nitrogen [Mass/Vol] 179 mg/dL High 7 - 20 mg/d L [facility] Work Phone: [phone] Test Performed by [employer], [address] [place] [id number] [place], [place] [address] Work Phone: [phone] EKG 12 Lead - Chest PainOrde red By: Callie Nieves on 10-19-2019 [employer] Test Date: 2019-10-19 Pat Name: Glenn Snyder Department: 2AED Room: 19 Gender: 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1965 Requested By: CALLIE NIEVES Order Number: [id number] Reading MD: Alessia Tapia Measurements Intervals Ama Rate: 97 P: 78 WI: 128 QRS: 49 QRSD: 106 T: 83 QT: 376 QTc: 478 Interpretive Statements SINUS RHYTHM LEFT ATRIAL ABNORMALITY INCOMPLETE RIGHT BUNDLE BRANCH BLOCK LEFT VENTRICULAR HYPERTROPHY BORDERLINE PROLONGED QT INTERVAL No previous ECG available for comparison Electronically Signed On 10-19-2019 8:49:06 EST by Alessia Tapia [employer] Work Phone: [phone] Mike, [facility] Incoming Cardiology Results From [facility] - 10/19/2019 8:50 AM EST [employer] Test Date: 2019-10-19 Pat Name: Glenn Snyder Department: 2AED Room: 19 Gender: 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1965 Requested By: CALLIE NIEVES Order Number: [id number] Reading MD: Alessia Tapia Measurements Intervals Ama Rate: 97 P: 78 WI: 128 QRS: 49 QRSD: 106 T: 83 QT: 376 QTc: 478 Interpretive Statements SINUS RHYTHM LEFT ATRIAL ABNORMALITY INCOMPLETE RIGHT BUNDLE BRANCH BLOCK LEFT VENTRICULAR HYPERTROPHY BORDERLINE PROLONGED QT INTERVAL No previous ECG available for comparison Electronically Signed On 10-19-2019 8:49:06 EST by Alessia Tapia [employer] Work Phone: [phone] HEPATITIS B SURFACE ANTIGENO rdered By: Jeana Pedraza on 10-19-2019 Hepatitis B Surface Ag Not detected Not-D etected NA [employer] Work Phone: [phone] HIV ScreenOrdered By: Adan Encarnacion on 10-19-2019 HIV 1+2 [id number] AG, EIA Non-Reactive Nonreactive NA [employer] Work Phone: [phone] Comment on above: Results obtained usi ng [...] # 0.1 10*3/uL 0 - 0.2 10*3/uL [facility] Work Phone: 22 Absolute Neut # 11.3 10*3/uL High 1.8 - 7 10*3/uL [facility] Work Phone: 1 22 Basophils/100 WBC (Bld) 0.6 % 0 - 2 % S [facility] Work Phone: Eosinophils (Bld) [#/Vol] 0.2 10*3/uL 0 - 0.5 10*3/uL [facility] Work Phone: 22 Eosinophils/100 WBC (Bld) 1.2 % 1 - 6 % [employer] Work Phone: Erythrocyte distribution width (RBC) [Ratio] 13.4 % 11.5 - 14.5 % [facility] Work Phone: Granulocytes/100 WBC (Bld) 80.5 % High 40 - 80 % [facility] Work Phone: Hematocrit (Bld) [Volume fraction] 23.2 % Low 40 - 52 % [facility] Work Phone: Hemoglobin (Bld) [Mass/Vol] 7.8 g/dL Low 13 - 18 g/dL [facility] Work Phone: Interpretation and review of laboratory results Abnormal [facility] Work Phone: 22 Lymphocytes (Bld) [#/Vol] 1.4 10*3/uL 1 - 4.3 10*3/uL [facility] Work Phone: 22 Lymphocytes/100 WBC (Bld) 9.8 % Low 20 - 40 % [facility] Work Phone: MCH (RBC) [Entitic mass] 29.4 pg 26 - 34 pg [facility] Work Phone: 22 MCHC 33.6 % 32 - 36 % [facility] Work Phone: 1 MCV (RBC) [Entitic vol] 87.4 fL 80 - 98 fL [employer] Work Phone: 1 Monocytes (Bld) [#/Vol] 1.1 10*3/uL High 0 - 0.8 10*3/uL [facility] Work Phone: Monocytes/100 WBC (Bld) 7.9 % 2 - 10 % [employer] Work Phone: Platelet mean volume (Bld) [Entitic vol] 7.6 fL 7.4 - 10.4 fL [facility] Work Phone: 1 Platelets (Bld) [#/Vol] 293 10*3/uL 140 - 440 10*3/uL [employer] Work Phone: RBC (Bld) [#/Vol] 2.66 10*6/uL Low 4.4 - 5.9 10*6/uL [employer] Work Phone: WBC (Bld) [#/Vol] 14.1 10*3/uL High 3.6 - 10.7 10*3/uL [employer] Work Phone: Test Performed by [employer], [address] [place], [place] [address] [employer] Work Phone: Hepatitis C AntibodyOrdered By: Jeana Pedraza on 10-19-2019 Hepatitis C Ab Not detected Not-Detected NA [employer] Work Phone: Comment on above: Patients with DETECT ED Hepatitis C Ab results should have a new specimen submitted for supplemental testing with a Hepatitis C Quantitative RNA assay (viral load), if clinically indicated. MagnesiumOrdered By: Callie shaw on 10-19-2019 Magnesium [Mass/Vol] 2.1 mg/dL 1.6 - 2 .3 mg/dL [employer] Work Phone: Test Performed by [employer], [address] [place], [place] [address] [employer] Work Phone: No Panel InformationOrdered By: Brett Encarnacion on 10-19-2019 Test Performed by [employer], [address] [place] [address] [facility] Work Phone: No Panel InformationOrdered By: Jeana Pedraza on 10-19-2019 Test Performed by [employer], [address] [place], [place] [address] [facility] Work Phone: 1 PROCALCITONINOrdered By: Eldon Encarnacion on 10-19-2019 Interpretation See Below [facility] Work Phone: Comment on above: PCT <0.50 = Low risk of severe sepsis and/or septic shock. PCT >2.00 = High risk of severe sepsis and/or septic shock. Interpretation and review of laboratory results Abnormal [facility] Work Phone: Procalcitonin 0.74 ng/mL Abnormal <0.10 [facility] Work Phone: PhosphorusOrdered By: Callie Nieves on 10-19-2019 Interpretation and review of laboratory results Abnormal [facility] Work Phone: Phosphate [Mass/Vol] 14.8 mg/dL High 2.5 - 4 .5 mg/dL [facility] Work Phone: Test Performed by [employer], [address] [place], [place] [address] [facility] Work Phone: TYPE AND SCREENOrdered By: Cecil Nieves on 10-19-2019 ABO Grouping O [facility] Work Phone: Rh Type Negative [facility] Work Phone: Comment on above: Test Performed by [facility], [address] [place], [place] [address] Test [facility]formed by [facility], [address] [place], [place] [address] [facility] Work Phone: TroponinOrdered By: Callie garcia on 10-19-2019 Interpretation and review of laboratory results Abnormal [facility] Work Phone: Troponin I.cardiac [Mass/Vol] 0.075 ng/mL High 0 - 0.034 ng/mL [facility] Work Phone: Comment on above: . Test Performed by [employer], [address] [place] [id number] [facility] Work Phone: [phone] UrinalysisOrdered By: Callie Nieves on 10-19-2019 AMORPHOUS CRYSTAL Few Negative /[HPF] [facility] Work Phone: [phone] Appearance (U) Clear Clear NA [facility] Work Phone: 1 Bacteria, UA Few Negative /[HPF] [facility] Work Phone: 1 Bilirubin Urine Negative Negative mg/dL [facility] Work Phone: 1 Color (U) Colorless Lt. Yellow NA [facility] Work Phone: 1 Glucose, Ur 200 mg/dL Normal (<70) [facility] Work Phone: 1 Ketones Ql (U) Negative Negative mg/dL [facility] Work Phone: 1 LEUKOCYTES, UA Negative Negative Juliana/uL [facility] Work Phone: 1 Mucous Threads Few Negative /[LPF] [facility] Work Phone: 1 Nitrite, Urine Negative Negative NA [facility] Work Phone: 1 Occult Blood,Urine 0.2 mg/dL Negative [facility] Work Phone: 1 pH (U) 6.0 [pH] [facility] Work Phone: 1 Protein (U) [Mass/Vol] 200 mg/dL Negative [employer] Work Phone: 1 RBC, UA 6-10 0 - 2 /[HPF] [facility] Work Phone: 1 Specific [place], Urine 1.009 S [facility] Work Phone: 1 22 Squam Epithel, UA 0-2 3 - 5 /[HPF] [facility] Work Phone: 1 Urobilinogen, Urine Normal Normal ( 0-1) mg/dL [facility] Work Phone: [phone] WBC, UA 6-10 0 - 5 /[HPF] [facility] Work Phone: [phone] Test Performed by [employer], [address] [place], [place] [address] [facility] Work Phone: [phone] XR CHEST PORTABLEOrdered By: Brett Encarnacion on 10-19-2019 Patient Name: GLENN SNYDER ---Diagnostic Radiology--- Exam Date/Time 10/19/2019 12:11:06 EST Exam CR Chest Portable Ordering Physician MD ENCARNACION MATTHEW Accession Number [id number] CPT4 Codes 92393 () Reason For Exam line placement/vascath Report [...] Phone: Mike, [facility] Incoming Radiology Results From [facility] - 10/19/2019 12:57 PM EST Patient Name: GLENN SNYDER ---Diagnostic Radiology--- Exam Date/Time 10/19/2019 12:11:06 EST Exam CR Chest Portable Ordering Physician MD ENCARNACION MATTHEW Accession Number [id number] CPT4 Codes 28364 () Reason For Exam line placement/vascath Report [...] RISA Transcribed Date and Time: 10/19/2019 12:56 [employer] Work Phone: Vital Signs Date Time Vital Sign Value Performing Clinician Angelia sweet 03-05-2025 14:03-0400 Body temperature 97 [degF] Crystaln Cuca DO Work Phone: [employer] 03-05-2025 14:03-0400 Diastolic blood pressure 83 mm[Hg] Smithgon Cuca DO Work Phone: [employer] 03-05-2025 14:03-0400 Heart rate 78 /min jgon Cuca DO Work Phone: [employer] 03-05-2025 14:03-0400 Respiratory rate 16 /min Crystaln Cuca DO Work Phone: [employer] 03-05-2025 14:03-0400 SaO2% (BldA) [Mass fraction] 100 % Smithgon Cuca DO Work Phone: [employer] 03-05-2025 14:03-0400 Systolic blood pressure 137 mm[Hg] jgon Cuca DO Work Phone: [employer] 02-23-2025 14:13-0400 Body height 177.8 cm Palak Cuca DO Work Phone: [employer] 02-23-2025 14:13-0400 Body mass index (BMI) [Ratio] 19.23 kg/m2 Smithgon Cuca DO Work Phone: [employer] 02-23-2025 14:13-0400 Body weight 60.78 kg Smithgon Cuca DO Work Phone: [employer] 02-14-2025 10:30-0400 Body height 177.8 cm Mikala Day PA-C Work Phone: [employer] 02-14-2025 10:30-0400 Body mass index (BMI) [Ratio] 18.65 kg/m2 Mikala Day PA-C Work Phone: [employer] 02-14-2025 10:30-0400 Body temperature 96.8 [degF] Mikala JO-C Work Phone: [facility] 02-14-2025 10:30-0400 Body weight 58.97 kg Mikala Day PA-C Work Phone: [facility] 02-14-2025 10:30-0400 Diastolic blood pressure 72 mm[Hg] Mikala JO-Walter Work Phone: [facility] 02-14-2025 10:30-0400 Heart rate 89 /min Mikala Day PA-C Work Phone: [facility] 02-14-2025 10:30-0400 SaO2% (BldA) [Mass fraction] 98 % Mikala Day PA-C Work Phone: [facility] 02-14-2025 10:30-0400 Systolic blood pressure 138 mm[Hg] Mikala Day PA-C Work Phone: [facility] 02-01-2025 15:02-0400 Body temperature 96.69 [degF] aLzaro Rojo MD Work Phone: [facility] 02-01-2025 15:02-0400 Diastolic blood pressure 60 mm[Hg] Lazaro Rojo MD Work Phone: [facility] 02-01-2025 15:02-0400 Heart rate 81 /min Lazaro Rojo MD Work Phone: [employer] 02-01-2025 15:02-0400 Respiratory rate 16 /min Lazaro Rojo MD Work Phone: [employer] 02-01-2025 15:02-0400 SaO2% (BldA) [Mass fraction] 98 % Lazaro Rojo MD Work Phone: [facility] 02-01-2025 15:02-0400 Systolic blood pressure 118 mm[Hg] Lazaro Rojo MD Work Phone: [facility] 02-01-2025 05:36-0400 Body mass index (BMI) [Ratio] 14.58 kg/m2 Lazaro Rojo MD Work Phone: [facility] 02-01-2025 05:36-0400 Body weight 46.1 kg Lazaro Rojo MD Work Phone: [facility] 01-30-2025 10:02-0400 Body height 177.8 cm Lazaro Rojo MD Work Phone: [facility] 08-28-2024 15:33-0500 Body height 177.8 cm Jr Shah MD Work Phone: [facility] 08-28-2024 15:33-0500 Body mass index (BMI) [Ratio] 29.56 kg/m2 Jr Shah MD Work Phone: [facility] 08-28-2024 15:33-0500 Body weight 93.44 kg Jr Shah MD Work Phone: [facility] 08-28-2024 15:33-0500 Diastolic blood pressure 80 mm[Hg] Jr Shah MD Work Phone: [facility] 08-28-2024 15:33-0500 Heart rate 75 /min Jr Shah MD Work Phone: [facility] 08-28-2024 15:33-0500 Systolic blood pressure 130 mm[Hg] Jr Shah MD Work Phone: [facility] 11-12-2023 14:16-0500 Diastolic blood pressure 84 mm[Hg] Quiana Contreras LOG HANDLING EQUIPMENT OPERATOR - [employer]ITE [employer]AGGER Work Phone: [facility] 11-12-2023 14:16-0500 Systolic blood pressure 138 mm[Hg] Quiana Contreras LOG HANDLING EQUIPMENT OPERATOR - WHITE SH[employer] RAGGER Work Phone: [facility] 11-12-2023 13:41-0500 Body height 177.8 cm Quiana Contreras LOG HANDLING EQUIPMENT OPERATOR - WHITE [employer]AGGER Work Phone: [employer] 11-12-2023 13:41-0500 Body mass index (BMI) [Ratio] 29.84 kg/m2 Quiana Contreras APRN - [employer]ITE [employer]AGGER Work Phone: [facility] 11-12-2023 13:41-0500 Body weight 94.35 kg Quiana Contreras APRN - [employer]AGGER Work Phone: [facility] 11-12-2023 13:41-0500 Heart rate 85 /min Quiana Contreras APRN - SAMIA Work Phone: [facility] 08-17-2023 13:12-0500 Diastolic blood pressure 67 mm[Hg] Dionicion Purcell DO Work Phone: [facility] 08-17-2023 13:12-0500 Heart rate 84 /min Dionicion Ozzie DO Work Phone: [facility] 08-17-2023 13:12-0500 Respiratory rate 18 /min Dionicion Purcell DO Work Phone: [facility] 08-17-2023 13:12-0500 SaO2% (BldA) [Mass fraction] 98 % Gurinderlyn Purcell DO Work Phone: [facility] 08-17-2023 13:12-0500 Systolic blood pressure 94 mm[Hg] Gurinderlyn Ozzie DO Work Phone: [facility] 08-17-2023 09:13-0500 Body height 177.8 cm Gurinderlyn Ozzie DO Work Phone: [employer] 08-17-2023 09:13-0500 Body mass index (BMI) [Ratio] 28.7 kg/m2 Gurinderlyn Purcell DO Work Phone: [employer] 08-17-2023 09:13-0500 Body weight 90.72 kg Gurinderlyn Purcell DO Work Phone: [employer] 08-17-2023 08:50-0500 Body temperature 99 [degF] Gurinderserenen Ozzie DO Work Phone: [facility] 05-01-2023 20:36-0400 Diastolic blood pressure 85 mm[Hg] Jese Frank MD Work Phone: [facility] 05-01-2023 20:36-0400 Heart rate 74 /min Jese Frank MD Work Phone: [facility] 05-01-2023 20:36-0400 Respiratory rate 20 /min Jese Frank MD Work Phone: [facility] 05-01-2023 20:36-0400 SaO2% (BldA) [Mass fraction] 95 % Jese Frank MD Work Phone: [facility] 05-01-2023 20:36-0400 Systolic blood pressure 135 mm[Hg] Jese Frank MD Work Phone: [facility] 05-01-2023 20:08-0400 Body height 177.8 cm Jese Frank MD Work Phone: [facility] 05-01-2023 20:08-0400 Body mass index (BMI) [Ratio] 28.7 kg/m2 Jese Frank MD Work Phone: [facility] 05-01-2023 20:08-0400 Body temperature 98.2 [degF] Jese Frank MD Work Phone: [facility] 05-01-2023 20:08-0400 Body weight 90.72 kg Jese Frank MD Work Phone: [facility] 12-25-2021 15:50-0400 Body height 177.8 cm Rudy Painter MD Work Phone: [facility] 12-25-2021 15:50-0400 Body weight 99.79 kg Rudy Painter MD Work Phone: [facility] 12-25-2021 15:50-0400 Diastolic blood pressure 72 mm[Hg] Rudy Painter MD Work Phone: [facility] 12-25-2021 15:50-0400 Heart rate 70 /min Rudy Painter MD Work Phone: [facility] 12-25-2021 15:50-0400 Systolic blood pressure 130 mm[Hg] Rudy Painter MD Work Phone: [facility] 09-15-2021 11:20-0500 Body temperature 97.59 [degF] Cindy Patel MD Work Phone: [facility] 09-15-2021 11:20-0500 Diastolic blood pressure 83 mm[Hg] Cindy Patel MD Work Phone: [facility] 09-15-2021 11:20-0500 Heart rate 85 /min Cindy Patel MD Work Phone: [facility] 09-15-2021 11:20-0500 Respiratory rate 20 /min Cindy Patel MD Work Phone: [facility] 09-15-2021 11:20-0500 SaO2% (BldA) [Mass fraction] 98 % Cindy Patel MD Work Phone: [facility] 09-15-2021 11:20-0500 Systolic blood pressure 144 mm[Hg] Cindy Patel MD Work Phone: [facility] 09-15-2021 09:19-0500 Body height 177.8 cm Cindy Patel MD Work Phone: [facility] 09-15-2021 09:19-0500 Body mass index (BMI) [Ratio] 30.05 kg/m2 Cindy Patel MD Work Phone: [facility] 09-15-2021 09:19-0500 Body weight 94.98 kg Cindy Patel MD Work Phone: [facility] 10-27-2019 20:02-0500 Body temperature 97.2 [degF] Callie Nieves DO Work Phone: [facility] Work Phone: 10-27-2019 20:02-0500 Diastolic blood pressure 77 mm[Hg] Callie [employer] Work Phone: [facility] Work Phone: 10-27-2019 20:02-0500 Heart rate 107 /min Callie [employer] Work Phone: [facility] Work Phone: 10-27-2019 20:02-0500 Respiratory rate 16 /min Callie [employer] Work Phone: [facility] Work Phone: 10-27-2019 20:02-0500 SaO2% (BldA) [Mass fraction] 96 % Callie [employer] Work Phone: [employer] Work Phone: 10-27-2019 20:02-0500 Systolic blood pressure 112 mm[Hg] Callie [employer] Work Phone: [employer] Work Phone: 10-27-2019 14:10-0500 Body mass index (BMI) [Ratio] 27.08 kg/m2 Callie [employer] Work Phone: [facility] Work Phone: 10-27-2019 14:10-0500 Body weight 85.6 kg Callie [employer] Work Phone: [facility] Work Phone: 10-19-2019 12:45-0500 Body height 177.8 cm Callie [employer] Work Phone: [employer] Work Phone: Encounters Encounter Date Encounter Type Care Provider Facility Start: 03-08-2025 End: 03-08-2025 Orders Only Christelle Eckert RN [facility] Comment on above: Tracheostomy depende nce (HCC) (Primary Dx); Tracheostomy complication, unspecified complication type (HCC); Acute respiratory failure with hypoxia (HCC) [J96.01] Start: 02-23-2025 End: 02-23-2025 Telephone encounter Elly Jett MD Work Phone: [facility] Comment on above: Appointment Start: 02-21-2025 End: 02-25-2025 Telephone encounter Hussain Quintana MD Work Phone: [facility] Infectious Disease Mitzy Sinha Comment on above: Other Start: 02-20-2025 End: 03-05-2025 Evaluation and management of inpatient Palak Thurman DO Work Phone: [facility] Trauma Neuro Progressive Care Unit PCU 3W Start: [facility] Start: 02-20-2025 Registered Referred Kayley ForresterTarrant [employer] Start: 02-15-2025 ambulatory [facility] [facility] Start: 02-15-2025 Registered Referred Kayley ForresterTarrant Quotations Book Start: 02-14-2025 End: 02-14-2025 Office outpatient visit 25 minutes Mikala Day PA-C Work Phone: [facility] Infectious Disease Mitzy Sinha Comment on above: Sacral osteomyelitis (CMS/HCC) (HCC) (Primary Dx); ESRD on hemodialysis (CMS/HCC) (HCC); 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, 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); Decubitus ulcer of sacral region, unstageable (HCC); longterm (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 Start: 02-14-2025 End: 02-14-2025 ambulatory [facility] Start: 02-13-2025 [facility] Start: 02-13-2025 Registered Referred Kayley ForresterTarrant [employer] Book Start: 02-12-2025 [facility]ulatory [facility] Start: 02-12-2025 Registered Referred Kayley ForresterTarrant [employer] Book Start: 02-08-2025 [facility] Start: 02-08-2025 Registered Referred Kayley ForresterTarrant [employer] Book Start: 02-07-2025 Registered Referred Jayesh Stubbs - [employer] Start: 02-07-2025 End: 02-07-2025 ambulatory Jayesh ALBA Facility:[facility] Start: 02-05-2025 End: 02-05-2025 ambulatory Kayley Melendrez MD [facility] Work Phone: Start: 02-05-2025 End: 02-05-2025 Departed Referred Kayley Melendrez MD -[employer] Start: 02-05-2025 End: 02-05-2025 ambulatory Kayley ALBA Facility:[facility] Start: 02-02-2025 End: 02-02-2025 Anticoagulant drug monitoring Adalberto SanchezD [facility] Comment on above: S/P AVR (Primary Dx) Start: 01-29-2025 End: 02-05-2025 Telephone encounter Adina Montenegro MA [facility] Anticoagulatio n Management Service Comment on above: Anticoagulation Start: 01-19-2025 End: 02-01-2025 Evaluation and management of inpatient Lazaro Rojo MD Work Phone: [facility] Cardiac Vascular Progressive Care Unit PCC 1C Start: 01-18-2025 End: 01-18-2025 ambulatory Jefferson Nathan MD Work Phone: [facility] Pulmonary and Sleep Medicine [facility] Comment on above: Acute respiratory fa ilure with hypoxia (HCC) [J96.01] (Primary Dx); RSV (acute bronchiolitis due to respiratory syncytial virus); 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HCC); Leg DVT (deep venous thromboembolism), acute, left (HCC); Pulmonary embolism, unspecified chronicity, unspecified pulmonary embolism type, unspecified whether acute cor pulmonale present (HCC); S/P AVR Start: 01-17-2025 End: 01-17-2025 ambulatory Jefferson Nathan MD Work Phone: [facility] Pulmonary and Sleep Medicine [facility] Comment on above: RSV (acute bronchiol [...] (Primary Dx); ESRD on hemodialysis (CMS/HCC) (HCC); longterm (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; Decubitus ulcer of sacral region, unstageable (HCC); Sacral osteomyelitis (CMS/HCC) (HCC) Start: 01-16-2025 End: 01-16-2025 ambulatory Jefferson Nathan MD Work Phone: [facility] Pulmonary and Sleep Medicine [facility] Comment on above: RSV (acute bronchiol [...] 01-15-2025 ambulatory Jefferson Nathan MD Work Phone: [facility] Pulmonary and Sleep Medicine [facility] Comment on above: RSV (acute bronchiol itis due to respiratory syncytial virus) (Primary Dx); 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HCC); Acute respiratory failure with hypoxia (HCC) [J96.01]; Leg DVT (deep venous thromboembolism), acute, left (HCC); Pulmonary embolism, unspecified chronicity, unspecified pulmonary embolism type, unspecified whether acute cor pulmonale present (HCC); S/P AVR Tracheostomy depende nce ([facility]) (Primary Dx); ESRD on hemodialysis (CMS/[facility]) (HCC); 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, 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); Sacral osteomyelitis (CMS/HCC) ([facility]); Leukocytosis, unspecified type Start: 01-14-2025 End: 01-14-2025 ambulatory Hany Berrios MD Work Phone: [facility] Pulmonary and Sleep Medicine [facility] Comment on above: Acute respiratory fa ilure with hypoxia (HCC) [J96.01] (Primary Dx); 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]; Pulmonary embolism, other, unspecified chronicity, unspecified whether acute cor pulmonale present (HCC) Start: 01-12-2025 End: 01-12-2025 ambulatory Mikala Day PA-C Work Phone: [facility] Infectious Dis Comment on above: Tracheostomy depende nce (HCC) (Primary Dx); Sacral osteomyelitis (CMS/HCC) (HCC); Leukocytosis, unspecified type; Decubitus ulcer of sacral region, unstageable (HCC); 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 Acute respiratory fa ilure with hypoxia (HCC) [J96.01] (Primary Dx); 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]; Pulmonary embolism, other, unspecified chronicity, unspecified whether acute cor pulmonale present (HCC) Start: 01-11-2025 End: 01-11-2025 ambulatory [place] Shay SANTOS Work Phone: [facility] Infectious Dis Comment on above: Tracheostomy depende nce (HCC) (Primary Dx); ESRD on hemodialysis (CMS/HCC) (HCC); Sacral osteomyelitis (CMS/HCC) (HCC); Decubitus ulcer of sacral region, unstageable (HCC) Acute respiratory fa ilure with hypoxia (HCC) [J96.01] (Primary Dx); 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]; Pulmonary embolism, other, unspecified chronicity, unspecified whether acute cor pulmonale present (HCC) Start: 01-10-2025 End: 01-10-2025 ambulatory Hany Berrios MD Work Phone: [facility] Pulmonary and Sleep Medicine [facility] Comment on above: Acute respiratory fa ilure with hypoxia (HCC) [J96.01] (Primary Dx); 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]; Pulmonary embolism, other, unspecified chronicity, unspecified whether acute cor pulmonale present (HCC) Start: 01-09-2025 End: 01-09-2025 ambulatory Mikala Day PA-C Work Phone: [facility] Infectious Dis Comment on above: Tracheostomy depende [...] 01-08-2025 ambulatory Mikala Day PA-C Work Phone: [facility] Infectious Dis Comment on above: Tracheostomy depende [...] Start: 01-05-2025 End: 01-05-2025 ambulatory Sydni Husain LOG HANDLING EQUIPMENT OPERATOR - WHITE SHOE RAGGER Work Phone: [facility] Infectious Disease - [place] Comment on above: Pneumonia of both marleny ngs due to methicillin susceptible Staphylococcus aureus (MSSA), unspecified part of lung (HCC) (Primary Dx); Acute hypoxic respiratory failure (HCC); 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HCC); ESRD on hemodialysis (CMS/HCC) (HCC); Sacral osteomyelitis (CMS/HCC) (HCC); Decubitus ulcer of sacral region, unstageable (HCC) Start: 01-05-2025 End: 01-05-2025 Patient encounter procedure Chandrika Allen LOG HANDLING EQUIPMENT OPERATOR - WHITE SHOE RAGGER Work Phone: [facility] [place] Comment on above: Acute respiratory fa ilure with hypoxia (HCC) [J96.01] (Primary Dx); 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]; LRTI (lower respiratory tract infection) [J22] Start: 01-04-2025 End: 01-04-2025 Admission to same day surgery center Sydni Husain LOG HANDLING EQUIPMENT OPERATOR [employer] Work Phone: [facility] Infectious Disease - [place] Comment on above: Tracheostomy depende nce (HCC) (Primary Dx); Pneumonia of both lungs due to methicillin susceptible Staphylococcus aureus (MSSA), unspecified part of lung (HCC); Acute hypoxic respiratory failure (HCC); Peritonitis due to fungus (HCC); ESRD on hemodialysis (CMS/HCC) (HCC); Sacral osteomyelitis (CMS/HCC) (HCC); Leukocytosis, unspecified type; History of abdominal surgery Start: 01-04-2025 End: 01-04-2025 ambulatory Sydni Husain LOG HANDLING EQUIPMENT OPERATOR [employer] Work Phone: [facility] Infectious Disease - [place] Start: 01-04-2025 End: 01-04-2025 [facility] hospital care/day 25 minutes QQTechnologyJohann DO Work Phone: [facility] - [facility] Comment on above: 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] (Primary Dx); Acute respiratory failure with hypoxia (HCC) [J96.01] Start: 01-03-2025 End: 01-03-2025 ambulatory Josephine T Shreya LOG HANDLING EQUIPMENT OPERATOR [employer] Work Phone: [facility] Disease - [place] Comment on above: Sacral osteomyelitis (CMS/HCC) (HCC) (Primary Dx); Decubitus ulcer of sacral region, unstageable (HCC); Pneumonia of both lungs due to methicillin susceptible Staphylococcus aureus (MSSA), unspecified part of lung (HCC); Leukocytosis, unspecified type; ESRD on hemodialysis (CMS/HCC) (HCC); S/P AVR Start: 01-03-2025 End: 01-03-2025 [facility] hospital care/day 25 minutes Beemodgrass DO Work Phone: [facility] Comment on above: 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] (Primary Dx); Acute respiratory failure with hypoxia (HCC) [J96.01] Start: 01-02-2025 End: 01-02-2025 ambulatory Josephine Cash APRN - WHITE SHOE RAGGER Work Phone: [facility] Infectious Disease - [place] Comment on above: Leukocytosis, unspec ified type (Primary Dx); Pneumonia of both lungs due to methicillin susceptible Staphylococcus aureus (MSSA), unspecified part of lung (HCC); Acute hypoxic respiratory failure (HCC); Decubitus ulcer of sacral region, unstageable (HCC); ESRD on hemodialysis (CMS/HCC) (HCC); S/P AVR Start: 01-02-2025 End: 01-02-2025 [facility] hospital care/day 25 minutes Angeles Blackburn DO Work Phone: [facility] [place] Comment on above: 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] (Primary Dx); Acute respiratory failure with hypoxia (HCC) [J96.01] Start: 01-01-2025 End: 01-01-2025 ambulatory Ochoa Guido MD Work Phone: [facility] Cardiology - [place] Comment on above: Persistent atrial fi brillation (HCC) (Primary Dx) Leukocytosis, unspec ified type (Primary Dx); Pneumonia of both lungs due to methicillin susceptible Staphylococcus aureus (MSSA), unspecified part of lung (HCC); Acute hypoxic respiratory failure (HCC); 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HCC); Decubitus ulcer of sacral region, unstageable (HCC); ESRD on hemodialysis (CMS/HCC) (HCC); S/P AVR Start: 01-01-2025 End: 01-01-2025 [facility] hospital care/day 25 minutes Angeles Blackburn DO Work Phone: [facility] [place] Comment on above: 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] (Primary Dx); Acute respiratory failure with hypoxia (HCC) [J96.01] Start: 12-30-2024 End: 12-30-2024 ambulatory Josephine Cash APRN - WHITE SHOE RAGGER Work Phone: [facility] Infectious Dis Comment on above: Leukocytosis, unspec ified type (Primary Dx); Acute hypoxic respiratory failure (HCC); 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HCC); S/P AVR; ESRD on hemodialysis (CMS/HCC) (HCC); Decubitus ulcer of sacral region, unstageable (HCC) Start: 12-28-2024 End: 12-28-2024 ambulatory Mercedes Hinton LOG HANDLING EQUIPMENT OPERATOR - WHITE SHOE RAGGER Work Phone: [facility] Lung Nodule [facility] - [place] Start: 12-28-2024 End: 12-28-2024 Patient encounter procedure Mercedes Hinton LOG HANDLING EQUIPMENT OPERATOR - WHITE SHOE RAGGER Work Phone: [facility] Nodule [facility] [place] Comment on above: Acute respiratory fa ilure with hypoxia (HCC) [J96.01] (Primary Dx); 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]; Tracheostomy care (HCC) [Z43.0]; History of pulmonary embolus (PE) [Z86.711] Start: 12-27-2024 End: 12-27-2024 ambulatory Mercedes Hinton LOG HANDLING EQUIPMENT OPERATOR - WHITE SHOE RAGGER Work Phone: [facility] Lung Nodule [facility] - [place] Start: 12-27-2024 End: 12-27-2024 Patient encounter procedure Mercedes Hinton LOG HANDLING EQUIPMENT OPERATOR - WHITE SHOE RAGGER Work Phone: [facility] - [place] Comment on above: Acute respiratory fa ilure with hypoxia (HCC) [J96.01] (Primary Dx); 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]; Tracheostomy care (HCC) [Z43.0]; History of pulmonary embolus (PE) [Z86.711] Start: 12-26-2024 End: 12-26-2024 ambulatory Mercedes Hinton LOG HANDLING EQUIPMENT OPERATOR - WHITE SHOE RAGGER Work Phone: [facility] - [place] Start: 12-26-2024 End: 12-26-2024 Patient encounter procedure Mercedes Hinton LOG HANDLING EQUIPMENT OPERATOR - WHITE SHOE RAGGER Work Phone: [facility] [place] Comment on above: Acute respiratory fa ilure with hypoxia (HCC) [J96.01] (Primary Dx); 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]; Tracheostomy care (HCC) [Z43.0]; History of pulmonary embolus (PE) [Z86.711] Start: 12-22-2024 End: 12-22-2024 ambulatory Chandrika Castillo Alejandro LOG HANDLING EQUIPMENT OPERATOR - WHITE SHOE RAGGER Work Phone: [facility] Start: 12-22-2024 End: 12-22-2024 Patient encounter procedure Chandrika Medranowski LOG HANDLING EQUIPMENT OPERATOR - WHITE SHOE RAGGER Work Phone: [facility] Comment on above: 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] (Primary Dx); Acute respiratory failure with hypoxia (HCC) [J96.01]; LRTI (lower respiratory tract infection) [J22] Start: 12-21-2024 End: 12-21-2024 ambulatory Chandrika Castillo Alejandro LOG HANDLING EQUIPMENT OPERATOR [employer] Work Phone: [facility] Start: 12-21-2024 End: 12-21-2024 Patient encounter procedure Chandrika Castillo Alejandro LOG HANDLING EQUIPMENT OPERATOR - WHITE SHOE RAGGER Work Phone: [facility] Comment on above: 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] (Primary Dx); Acute respiratory failure with hypoxia (HCC) [J96.01]; LRTI (lower respiratory tract infection) [J22] Start: 12-20-2024 End: 12-20-2024 ambulatory Chandrika Castillo Alejandro LOG HANDLING EQUIPMENT OPERATOR - WHITE SHOE RAGGER [facility] Start: 12-20-2024 End: 12-20-2024 Patient encounter procedure Chandrika Cummingsoblewski LOG HANDLING EQUIPMENT OPERATOR [employer] Work Phone: [facility] Comment on above: 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] (Primary Dx); Acute respiratory failure with hypoxia (HCC) [J96.01]; LRTI (lower respiratory tract infection) [J22] Start: 12-19-2024 End: 12-19-2024 ambulatory Chandrikaflako Allen LOG HANDLING EQUIPMENT OPERATOR - WHITE SHOE RAGGER Work Phone: [facility] Lung Nodule [facility] Start: 12-19-2024 End: 12-19-2024 Patient encounter procedure Chandrika BorjaRomulo Allen LOG HANDLING EQUIPMENT OPERATOR - WHITE SHOE RAGGER Work Phone: [facility] Lung Nodule [facility] Comment on above: 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] (Primary Dx); Acute respiratory failure with hypoxia (HCC) [J96.01]; LRTI (lower respiratory tract infection) [J22] Start: 12-18-2024 End: 12-18-2024 Patient encounter procedure Chandrika BorjaRomulo Allen LOG HANDLING EQUIPMENT OPERATOR - WHITE SHOE RAGGER Work Phone: [facility] Lung Nodule [facility] Comment on above: Acute respiratory fa ilure with hypoxia (HCC) [J96.01] (Primary Dx); 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]; LRTI (lower respiratory tract infection) [J22] Start: 12-18-2024 End: 12-18-2024 ambulatory Chandrika Jonathan Allen LOG HANDLING EQUIPMENT OPERATOR - WHITE SHOE RAGGER Work Phone: [facility] Lung Nodule [facility] Start: 12-15-2024 End: 12-15-2024 ambulatory Jefferson Nathan MD Work Phone: [facility] Lung Nodule [facility] Start: 12-15-2024 End: 12-15-2024 Patient encounter procedure Jefferson Nathan MD Work Phone: [facility] Lung Nodule [facility] Comment on above: Acute respiratory fa ilure with hypoxia (HCC) (Primary Dx); 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HCC); RSV (acute bronchiolitis due to respiratory syncytial virus); Leg DVT (deep venous thromboembolism), acute, left (HCC); Nonrheumatic aortic valve stenosis Start: 12-14-2024 End: 12-14-2024 ambulatory Jefferson Nathan MD Work Phone: [facility] Pulmonary and Sleep Medicine [facility] Comment on above: Acute respiratory fa ilure with hypoxia (HCC) (Primary Dx); 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HCC); RSV (acute bronchiolitis due to respiratory syncytial virus); ESRD on hemodialysis (CMS/HCC) (HCC); Pulmonary embolism, other, unspecified chronicity, unspecified whether acute cor pulmonale present (HCC); Nonrheumatic aortic valve stenosis Start: 12-13-2024 End: 12-13-2024 ambulatory Jefferson Nathan MD Work Phone: [facility] Comment on above: Acute respiratory fa ilure with hypoxia (HCC) (Primary Dx); 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HCC); RSV (acute bronchiolitis due to respiratory syncytial virus); Paroxysmal A-fib (CMS/HCC) (HCC); Nonrheumatic aortic valve stenosis Start: 12-12-2024 End: 12-12-2024 ambulatory Jefferson Nathan MD Work Phone: [facility] Comment on above: RSV (acute bronchiol itis due to respiratory syncytial virus) (Primary Dx); 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HCC); Acute respiratory failure with hypoxia (HCC); Paroxysmal A-fib (CMS/HCC) (HCC); Peritonitis due to fungus (HCC) Start: 12-11-2024 End: 12-11-2024 ambulatory Jefferson Nathan MD Work Phone: [facility] Comment on above: RSV (acute [...] surgery center Sydni Forrester CNP Work Phone: [facility] [employer] Disease - [facility] Comment on above: Acute respiratory fa ilure with hypoxia (HCC) (Primary Dx); 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HCC); S/P AVR; Peritonitis due to fungus (HCC); ESRD on hemodialysis (CMS/HCC) (HCC); 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, 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); Anemia, unspecified type; History of abdominal surgery Start: 12-07-2024 End: 12-07-2024 ambulatory Sydni Husain LOG HANDLING EQUIPMENT OPERATOR [employer] Work Phone: [facility] [employer] Disease - [facility] Start: 12-06-2024 End: 12-06-2024 Admission to same day surgery center Sydniartem Husain LOG HANDLING EQUIPMENT OPERATOR [employer] Work Phone: [facility] [employer] Disease - [facility] Comment on above: Acute respiratory fa ilure with hypoxia (HCC) (Primary Dx); 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HCC); S/P AVR; Peritonitis due to fungus (HCC); ESRD on hemodialysis (CMS/HCC) (HCC); 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, 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); History of abdominal surgery Start: 12-06-2024 End: 12-06-2024 ambulatory Sydni Husain LOG HANDLING EQUIPMENT OPERATOR [employer] [facility] [place] Start: 12-04-2024 End: 12-04-2024 Admission to same day surgery center Sydniartem Husain [employer] Work Phone: [facility] Infectious Disease - [place] Comment on above: Acute respiratory fa ilure with hypoxia (HCC) (Primary Dx); 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HCC); S/P AVR; Peritonitis due to fungus (HCC); ESRD on hemodialysis (CMS/HCC) (HCC); 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, 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); History of abdominal surgery Start: 12-04-2024 End: 12-04-2024 ambulatory Sydni Husain [employer] Work Phone: [facility] [employer] Disease - [place] Comment on above: Atypical atrial flut ter (HCC) (Primary Dx) Start: 12-01-2024 End: 12-01-2024 Admission to same day surgery center Sydni Husain LOG HANDLING EQUIPMENT OPERATOR - WHITE SHOE RAGGER Work Phone: [facility] Infectious Disease - [place] Comment on above: Acute respiratory [...] 12-01-2024 ambulatory Jefferson Nathan MD Work Phone: [facility] Lung Nodule [facility] Comment on above: Atypical atrial flut ter (HCC) (Primary Dx) Start: 12-01-2024 End: 12-01-2024 Patient encounter procedure Jefferson Nathan MD Work Phone: [facility] Lung Nodule [facility] Comment on above: Acute respiratory fa ilure with hypoxia (HCC) (Primary Dx); 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HCC); Ventilator dependent (HCC); Pulmonary embolism, other, unspecified chronicity, unspecified whether acute cor pulmonale present (HCC); S/P AVR Start: 11-30-2024 End: 11-30-2024 Admission to same day surgery center Sydni Husain LOG HANDLING EQUIPMENT OPERATOR - WHITE SHOE RAGGER Work Phone: [facility] Infectious Disease - [place] Comment on above: Acute respiratory fa ilure with hypoxia (HCC) (Primary Dx); 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HCC); S/P AVR; Peritonitis due to fungus (HCC); ESRD on hemodialysis (CMS/HCC) (HCC); 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, 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); Leg DVT (deep venous thromboembolism), acute, left (HCC); History of abdominal surgery Start: 11-30-2024 End: 11-30-2024 ambulatory Sydni Husain LOG HANDLING EQUIPMENT OPERATOR - WHITE SHOE RAGGER Work Phone: [facility] Infectious Disease Mitzy Sinha Comment on above: Acute respiratory fa ilure with hypoxia (HCC) (Primary Dx); 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HCC); Ventilator dependent (HCC); Pulmonary embolism, other, unspecified chronicity, unspecified whether acute cor pulmonale present (HCC); S/P AVR; Tracheostomy dependent (HCC); Chronic bronchitis, unspecified chronic bronchitis type (HCC); ESRD on hemodialysis (CMS/HCC) (HCC) Start: 11-29-2024 End: 11-30-2024 Admission to same day surgery center Sydni Husain LOG HANDLING EQUIPMENT OPERATOR - WHITE SHOE RAGGER Work Phone: [facility] Infectious Disease - [place] Comment on above: Peritonitis due to f ungus (HCC) (Primary Dx); History of abdominal surgery; S/P AVR; 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, 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); Leg DVT (deep venous thromboembolism), acute, left (HCC); Anemia, unspecified type Start: 11-29-2024 End: 11-30-2024 ambulatory Jefferson Nathan MD Work Phone: [facility] Pulmonary and Sleep Medicine - [place] Comment on above: Acute respiratory fa ilure with hypoxia (HCC) (Primary Dx); Atrial flutter, unspecified type (HCC); Pulmonary embolism, other, unspecified chronicity, unspecified whether acute cor pulmonale present (HCC); Ventilator dependent (HCC); Tracheostomy dependent (HCC); S/P AVR; Chronic bronchitis, unspecified chronic bronchitis type (HCC); ESRD on hemodialysis (CMS/HCC) (HCC) Start: 11-28-2024 End: 11-29-2024 Telephone encounter Jefferson Nathan MD Work Phone: [facility] Comment on above: Advice Only Start: 10-22-2024 End: 10-22-2024 [facility] Start: 10-21-2024 End: 10-25-2024 ambulatory LUCIANO [facility] Start: 10-16-2024 End: 10-16-2024 Telephone encounter Shira Dumont LOG HANDLING EQUIPMENT OPERATOR - WHITE SHOE RAGGER Work Phone: [facility] Gastroenterology - [place] Comment on above: Care Coordination Start: 10-13-2024 End: 10-13-2024 Telephone encounter Lan Carpenter PA-C Work Phone: [facility] Start: 10-12-2024 End: 10-12-2024 Evaluation and management of inpatient Vincent Wilson MD Work Phone: [facility] Start: 10-03-2024 End: 10-03-2024 Emergency department patient visit JESE FRANK [facility] Start: 10-03-2024 End: 10-03-2024 Subsequent hospital visit by physician [facility] Exam Room [address] [facility] [address] Comment on above: Arrived Start: 10-03-2024 End: 11-28-2024 Evaluation and management of inpatient LEILANI TRONCOSO [facility] Start: 08-28-2024 End: 08-28-2024 ambulatory JR SHAH [facility] Start: 08-28-2024 End: 08-28-2024 Office outpatient visit 25 minutes Jr Shah MD Work Phone: [facility] Cardiology [facility] Comment on above: Paroxysmal A-fib (CM S/HCC) (HCC) (Primary Dx); Nonrheumatic aortic valve stenosis; Tobacco abuse; Alcohol use disorder in remission Start: 05-10-2024 Chart abstracting Alan Barroso RN [facility] Comment on above: Dialysis status upda te Start: 04-12-2024 Telephone encounter Kidney Txp Coordinators Work Phone: Transplant Center Start: 02-12-2024 Telephone encounter Jr Shah MD Work Phone: [facility] Central Scheduling Comment on above: unable to contact pa jadon unable to contact greg diop to schedule Start: 11-12-2023 End: 11-12-2023 Office outpatient visit 25 minutes Quiana Contreras LOG HANDLING EQUIPMENT OPERATOR - WHITE SHOE RAGGER Work Phone: [facility] Cardiology Comment on above: Nonrheumatic aortic valve stenosis (Primary Dx); Paroxysmal A-fib (CMS/HCC) (HCC); Primary hypertension; Calcification of abdominal aorta (HCC); Tobacco abuse; ESRD on hemodialysis (CMS/HCC) (HCC) Start: 10-14-2023 Telephone encounter Sasha weeks LOG HANDLING EQUIPMENT OPERATOR - WHITE SHOE RAGGER Work Phone: [facility] Cardiology Comment on above: Cancelled Appointmen t Start: 09-07-2023 Transcribe Orders Fransisco mahoneyt LOG HANDLING EQUIPMENT OPERATOR Work Phone: [facility] Central Scheduling Comment on above: Personal history of nicotine dependence (Primary Dx); Nicotine dependence, cigarettes, uncomplicated Start: 08-18-2023 Telephone encounter Quiana Leal dasia LOG HANDLING EQUIPMENT OPERATOR - WHITE SHOE RAGGER Work Phone: [facility] Cardiology Start: 08-16-2023 End: 08-17-2023 Evaluation and management of inpatient Dangelo Horne DO Work Phone: [facility] ED Comment on above: New onset a-fib (CMS /HCC) (HCC) (Primary Dx); Atrial fibrillation, persistent (HCC) Start: 05-01-2023 End: 05-01-2023 Emergency department patient visit Jese Frank MD Work Phone: [facility] ED Comment on above: Skin sore (Primary D x); ESRD (end stage renal disease) on dialysis (HCC) Start: 12-30-2021 Telephone encounter Giovani mckee MD Work Phone: [facility] [place] Comment on above: Procedure please advise Start: 12-29-2021 ambulatory Rudy Painter MD Work Phone: Ambulatory Surgery Start: 12-29-2021 Telephone encounter Cecilia galo PAMitzyC Work Phone: [facility] [place] Comment on above: cecilia carlson Start: 12-25-2021 End: 12-25-2021 Patient encounter procedure Rudy Painter MD Work Phone: [facility] [place] Comment on above: Acute blood loss ane ruth (Primary Dx); Rectal bleeding Start: 09-15-2021 End: 09-15-2021 Subsequent hospital visit by physician Cindy Patel MD Work Phone: [facility] Start: 10-17-2020 End: 01-21-2021 Subsequent hospital visit by physician Cindy Patel Work Phone: [facility]indy Dept Start: 03-13-2020 End: 03-13-2020 Subsequent hospital visit by physician Lab [facility] LAB EKG [facility] Comment on above: Preoperative testing [Z01.818] Start: 10-19-2019 End: 10-27-2019 Evaluation and management of inpatient Callie Nieves DO Work Phone: [facility] 1E MED SURG Comment on above: Acute kidney injury (HCC) (Primary Dx); Uncontrolled hypertension; Normocytic anemia; Angioedema, initial encounter; Hyperkalemia; Metabolic acidosis; Rectal bleeding Procedures Date Procedure Procedure Detail Performing Clinician Start: 03-05-2025 End: 03-05-2025 Basic metabolic panel calcium total Minor Collier MD Work Phone: Start: 03-05-2025 Basic metabolic pane l calcium total Anthony Hilario [place] DO Work Phone: Start: 03-04-2025 Prothrombin time Anthony Hurtado DO Work Phone: Start: 03-04-2025 Basic metabolic pane l calcium total Anthony Hilario [place] DO Work Phone: Start: 03-03-2025 Basic metabolic pane l calcium total Minor Collier MD Work Phone: Start: 03-03-2025 Basic metabolic pane l calcium total Anthony Hurtado DO Work Phone: Start: 03-02-2025 Thromboplastin time partial plasma/whole blood Ramón Romano MD Work Phone: Start: 03-02-2025 Thromboplastin time partial plasma/whole blood Ramón Romano MD Work Phone: Start: 03-02-2025 Thromboplastin time partial plasma/whole blood Ramón Romano MD Work Phone: Start: 03-02-2025 Basic metabolic pane l calcium total Anthony Hurtado DO Work Phone: Start: 03-01-2025 Basic metabolic pane l calcium total Anthony Hurtado DO Work Phone: Start: 02-28-2025 Basic metabolic pane l calcium total Anthony Hurtado DO Work Phone: Start: 02-27-2025 Blood count complete automated Ramón Romano MD Work Phone: Start: 02-26-2025 Assay of troponin quantitative Rudolph Gasparnikijeffyi DO Work Phone: Start: 02-26-2025 Assay of troponin quantitative Rudolph J Carolthiagominhcki DO Work Phone: Start: 02-25-2025 Prothrombin time [...] on above: Performed By: #### L [id number] ####Specialized Language Instructor: DOMENICA JARA ([id number])[facility] BLOOD [facility] ([address] Start: 02-21-2025 C-reactive protein Karena Jett MD Work Phone: Start: 02-21-2025 Comprehensive metabo lic panel Bettye Pierre MD Work Phone: Start: 02-20-2025 Ct angiography chest w/contrast/noncontrast Mejgon Avelino Cuca DO Work Phone: Start: 02-20-2025 Basic metabolic pane l calcium total Mejyonisn Avelino Cuca DO Work Phone: Start: 02-14-2025 Follow-up visit Follow-up MIKALA DAY Start: 02-01-2025 Blood count hematocrit Chantell Laquidara [...] CVC TUNNELED CENT RAL LINE PLACEMENT Kamran Lira MD Work Phone: Start: 01-30-2025 End: 01-30-2025 [...] Start: 01-26-2025 Compatibility each u nit electronic Sangeetamk Ryees DO Start: 01-26-2025 End: 01-26-2025 TRANSFUSE RED BLOOD CELLS Sangeetamk olguin DO Start: 01-26-2025 Basic metabolic pane l calcium total Chantell Laquidara DO Work Phone: Start: 01-25-2025 Blood count hematocrit Chantell Laquidara DO Work Phone: Start: 01-25-2025 Thromboplastin time partial plasma/whole blood Noman Owens MD Work Phone: Start: 01-25-2025 Blood count hematocrit Yifan Stewart DO Work Phone: Start: 01-25-2025 Radiologic exam swal low function contrast study Elly Jett MD Work Phone: Start: 01-25-2025 Blood count hematocrit Chantell Hill DO Work Phone: Start: 01-25-2025 Prothrombin time Elly Jett MD Work Phone: Start: 01-25-2025 Compatibility each u nit electronic Sangeeta Reyes DO Start: 01-25-2025 End: 01-25-2025 TRANSFUSE RED BLOOD CELLS Sangeeta Anthony in DO Start: 01-25-2025 Antibody screen LEILANI TRONCOSO Comment on above: Performed By: #### L [id number] ####Specialized Language Instructor: DOMENICA JARA ([id number])[facility] BLOOD B[facility] ([address] Start: 01-25-2025 Basic metabolic pane l calcium total Chantell Hill DO Work Phone: Start: 01-25-2025 Blood typing [...] Phone: Start: 01-24-2025 Blood count complete automated lEly Jett MD Work Phone: Start: 01-24-2025 Basic [...] Phone: Start: 01-23-2025 Blood count hematocrit Chantell Laquidara DO Work Phone: Start: 01-23-2025 Glucose quantitative [...] End: 01-22-2025 TRANSFUSE FRESH FROZEN PLASMA Nils Moncada DO Work Phone: Start: 01-22-2025 Glucose quantitative blood xcpt reagent strip Darryn Higgins MD Work Phone: Start: 01-22-2025 Clotting factor viii multimetric analysis Sangeeta Reyes DO Start: 01-22-2025 ACINETOBACTER SHIREEN NIKITA PCR Cali Arredondo MD Work Phone: Start: 01-22-2025 ESTRADA AURIS SCREEN Mikaela se Huong Arredondo MD Work Phone: Start: 01-22-2025 Glucose quantitative blood xcpt reagent strip Darryn Higgins MD Work Phone: Start: 01-22-2025 Basic metabolic pane l calcium total Chantell Cookida DO Work Phone: Start: 01-21-2025 End: 01-22-2025 Fibrin dgradj products d-dimer quantitative Bruce Nguyen MD Work Phone: Start: 01-21-2025 Glucose quantitative blood xcpt reagent strip Quiana Jeffery DO Work Phone: Start: 01-21-2025 Prothrombin time Bob Watson MD Work Phone: Start: 01-21-2025 Glucose quantitative blood xcpt reagent strip Quiana Jeffery DO Work Phone: Start: 01-21-2025 End: 01-21-2025 ESOPHAGOGASTRODUODENOSCOP Y, DIAGNOSTIC Mitchellu Parth VASQUEZ Work Phone: Start: 01-21-2025 Blood count complete automated Crystal D. Meranto LOG HANDLING EQUIPMENT OPERATOR - WHITE SHOE RAGGER Work Phone: Start: 01-21-2025 Glucose quantitative blood [...] abd&plvis c ntrst mtrl w/wo cntrst img Japhekay Holt DO Work Phone: Start: 01-20-2025 Blood count hematocrit Jesus Alberto Denson MD Work Phone: Start: 01-20-2025 Blood count hematocrit Jesus Alberto N Jarett MD Work Phone: Start: 01-20-2025 Blood typing [...] History of abd ominal surgery Sydni Husain LOG HANDLING EQUIPMENT OPERATOR - WHITE SHOE RAGGER Work Phone: Start: 10-12-2024 Insj non-tunneled ce ntral venous cath age 5 yr/> Rudolph German FAILURE ANALYSIS TECHNICIAN Start: 10-12-2024 WI AN CENTRAL LINE T RIPLE LUMEN Rudolph German FAILURE ANALYSIS TECHNICIAN Start: 10-12-2024 WI AN ELECTIVE ENDOTRACHEAL AIRWAY Rudolph German FAILURE ANALYSIS TECHNICIAN Start: 10-12-2024 Us vasc access sits vsl patency ndl entry Rudolph German FAILURE ANALYSIS TECHNICIAN Start: 10-12-2024 ANESTHESIA ARTERIAL LINE PLACEMENT Rudolph German FAILURE ANALYSIS TECHNICIAN Start: 10-03-2024 Ct head/brain w/o contrast [...] Missed vaccination due to patient refusal Sasha Vesta LOG HANDLING EQUIPMENT OPERATOR - WHITE SHOE RAGGER Work Phone: Start: 08-17-2023 Echo tthrc r-t 2d w/wom-mode compl spec&colr d Earlene Irving MD Work Phone: Start: 08-17-2023 Thyrotropin [Units/volume] in Serum or Plasma Lan Carpenter PA-C Work Phone: Start: 08-17-2023 Basic metabolic pane l calcium total Earlene Irving MD Work Phone: Start: 08-16-2023 End: 08-16-2023 Basic metabolic panel calcium total Sha Chandana Roberta PA-[employer] Work Phone: Start: 08-16-2023 Radiologic exam ches t single view Sha N Roberta PA[employer] Work Phone: Start: 08-16-2023 Ecg routine ecg w/le ast 12 lds i&r only Dangelo Horne DO Work Phone: Start: 10-17-2020 Special treatments a nd procedures Cindy Patel Work Phone: Start: 03-13-2020 Ecg routine ecg w/le ast 12 lds trcg only w/o i&r [place] Provider Start: 03-13-2020 BASIC METABOLIC PNL Tati farooq (Radiographer Angiogram Mortar Mixer) Zachary Work Phone: Start: 03-13-2020 CBC Darya (A prn Mortar [employer]er) Zachary Work Phone: Start: 03-13-2020 MDRD GFR Darya (A prn Mortar [employer]er) Zachary Work Phone: Start: 03-13-2020 PROTHROMBIN TIME/PT Tati trivedi (Radiographer Angiogram Mortar Mixer) Zachary Work Phone: Start: 10-27-2019 Basic metabolic pane l calcium total Darell Sanches DO Work Phone: Start: 10-26-2019 XA SPECIAL [...] Basic metabolic panel calcium total Delon Jessica LOG HANDLING EQUIPMENT OPERATOR - WHITE SHOE RAGGER Work Phone: Start: 10-22-2019 GLOMERULAR BASEMENT MEMBRANE (GBM) ANTIBODY IGG Randolph Liz MD Work Phone: Start: 10-21-2019 Radiologic exam abdo men 1 view Brett Encarnacion MD Work Phone: Start: 10-21-2019 End: 10-21-2019 Dup-scan artl shayan abdl/pel/scrot&/rpr orgn com Brett Encarnacion MD Work Phone: Start: 10-21-2019 Basic metabolic pane l calcium total Delon Jessica LOG HANDLING EQUIPMENT OPERATOR - WHITE SHOE RAGGER Work Phone: Start: 10-20-2019 Basic metabolic pane l calcium total Brett Encarnacion MD Work Phone: Start: 10-20-2019 TRANSFUSE RED BLOOD CELLS Delon Jessica LOG HANDLING EQUIPMENT OPERATOR - WHITE SHOE RAGGER Work Phone: Start: 10-20-2019 TRANSFUSE RED BLOOD CELLS Delon Jessica LOG HANDLING EQUIPMENT OPERATOR - WHITE SHOE RAGGER Work Phone: Start: 10-20-2019 Blood count hemoglobin Delon Jessica LOG HANDLING EQUIPMENT OPERATOR - WHITE SHOE RAGGER Work Phone: Start: 10-20-2019 Basic metabolic pane l calcium total Delon Jessica LOG HANDLING EQUIPMENT OPERATOR - WHITE SHOE RAGGER Work Phone: Start: 10-20-2019 RBC morphology findi ng Nom (Bld) Delon Jessica LOG HANDLING EQUIPMENT OPERATOR - WHITE SHOE RAGGER Work Phone: Start: 10-19-2019 Basic metabolic pane [...] Phone: Comment on above: Test Performed by [facility], [address] [place], [place] [address] Start: 10-19-2019 End: 10-19-2019 ADD ON LAB TEST Callie Nieves DO Work Phone: Start: 10-19-2019 Ct abdomen & pelvis w/o contrast material Callie Nieves DO Work Phone: Start: 10-19-2019 BLOOD OCCULT STOOL S CREEN #1 Callie Nieves DO Work Phone: Start: 10-19-2019 Blood typing serolog ic abo Callie Nieves DO Work Phone: Start: 10-19-2019 Comprehensive metabo lic panel Callie Nieves DO Work Phone: Start: 10-19-2019 Comprehensive metabo lic panel Callie Nieves DO Work Phone: H/O: surgery History of abdom inal surgery Sydni Husain LOG HANDLING EQUIPMENT OPERATOR - WHITE SHOE RAGGER Work Phone: H/O: surgery History of abdom inal surgery Sydni Husain LOG HANDLING EQUIPMENT OPERATOR - WHITE SHOE RAGGER Work Phone: H/O: surgery History of abdom inal surgery Sydni Husain LOG HANDLING EQUIPMENT OPERATOR - WHITE SHOE RAGGER Work Phone: H/O: surgery History of abdom inal surgery Sydni Husain LOG HANDLING EQUIPMENT OPERATOR - WHITE SHOE RAGGER Work Phone: H/O: surgery History of abdom inal surgery Sydni Husain LOG HANDLING EQUIPMENT OPERATOR - WHITE SHOE RAGGER Work Phone: H/O: surgery History of abdom inal surgery Sydni Husain LOG HANDLING EQUIPMENT OPERATOR - WHITE SHOE RAGGER Work Phone: Vaccine refused by patient Missed vaccination due to patient refusal Palak Thurman DO Work Phone: Plan of Treatment Date Care Activity Detail Author Start: 2040 RSV Immunization for Adults (1 - 1-dose 75+ series) RSV Immunization for Adults (1 - 1-dose 75+ series) [facility] Start: 2040 [facility] Start: 01-24-2035 Screening for malignant neoplasm of colon [facility] Start: 03-05-2026 Creatinine measurement [facility] Start: 03-05-2026 Potassium measurement [facility] Start: 02-23-2026 Creatinine measurement Creatinine Level [facility] Start: 02-23-2026 Echocardiography Echocardiogram [facility] Start: 02-23-2026 Potassium measurement Potassium Level [facility] Start: 02-23-2026 [facility] Start: 02-12-2026 Creatinine measurement Creatinine Level [facility] Start: 02-12-2026 Potassium measurement Potassium Level [facility] Start: 02-01-2026 Creatinine measurement [facility] Start: 02-01-2026 Potassium measurement [facility] Start: 01-16-2026 Creatinine measurement Creatinine Level [facility] Start: 01-16-2026 Potassium measurement Potassium Level [facility] Start: 01-15-2026 Creatinine measurement Creatinine Level [facility] Start: 01-15-2026 Potassium measurement Potassium Level [facility] Start: 01-12-2026 Creatinine measurement Creatinine Level [facility] Start: 01-12-2026 Potassium measurement Potassium Level [facility] Start: 01-08-2026 Creatinine measurement Creatinine Level [facility] Start: 01-08-2026 Potassium measurement Potassium Level [facility] Start: 01-05-2026 Potassium measurement Potassium Level [facility] Start: 01-01-2026 Creatinine measurement Creatinine Level [facility] Start: 01-01-2026 Potassium measurement Potassium Level [facility] Start: 12-30-2025 Creatinine measurement Creatinine Level [facility] Start: 12-30-2025 Potassium measurement Potassium Level [facility] Start: 12-25-2025 Creatinine measurement Creatinine Level [facility] Start: 12-25-2025 Potassium measurement Potassium Level [facility] Start: 12-22-2025 Creatinine measurement Creatinine Level [facility] Start: 12-22-2025 Potassium measurement Potassium Level [facility] Start: 12-18-2025 Creatinine measurement Creatinine Level [facility] Start: 12-18-2025 Potassium measurement Potassium Level [facility] Start: 12-15-2025 Creatinine measurement Creatinine Level [facility] Start: 12-15-2025 Potassium measurement Potassium Level [facility] Start: 12-11-2025 Creatinine measurement Creatinine Level [facility] Start: 12-11-2025 Potassium measurement Potassium Level [facility] Start: 12-04-2025 Creatinine measurement Creatinine Level [facility] Start: 12-04-2025 Potassium measurement Potassium Level [facility] Start: 12-01-2025 Creatinine measurement Creatinine Level [facility] Start: 12-01-2025 Potassium measurement Potassium Level [facility] Start: 11-30-2025 Creatinine measurement Creatinine Level [facility] Start: 11-30-2025 Potassium measurement Potassium Level [facility] Start: 11-29-2025 Creatinine measurement Creatinine Level [facility] Start: 11-29-2025 Potassium measurement Potassium Level [facility] Start: 11-24-2025 Echocardiography Echocardiogram [facility] Start: 11-24-2025 [facility] Start: 2025 RSV Immunization aged 60 or older (1 - 1-dose 60+ series) RSV Immunization aged 60 or older (1 - 1-dose 60+ series) [facility] Start: 11-03-2025 Creatinine measurement Creatinine Level [facility] Start: 11-03-2025 Potassium measurement Potassium Level [facility] Start: 11-02-2025 Echocardiography Echocardiogram [facility] Start: 10-11-2025 Screening for malignant neoplasm of lung [facility] Start: 05-28-2025 Influenza vaccination Influenza Vaccine (Season Ended) [facility] Start: 05-28-2025 [facility] Start: 04-05-2025 End: 04-05-2025 ambulatory [facility] Start: 04-05-2025 End: 04-05-2025 Patient encounter procedure 04/05/2025 1:00 PM EDT Office Visit [facility] [address] [place] [phone] Sophia Lara APRN - CNP [address] [place] [address] [facility] Start: 04-03-2025 End: 04-03-2025 ambulatory [facility] Start: 04-03-2025 End: 04-03-2025 Patient encounter procedure 04/03/2025 10:45 AM EDT Office Visit [facility] Cardiology - [place] [facility] [place] [address] [place] [phone] Zoe Valadez, LOG HANDLING EQUIPMENT OPERATOR - WHITE SHOE RAGGER [address] [facility] [place] [phone] [facility] Cardiology [facility] Start: 03-26-2025 End: 02-23-2026 CT Chest WO contrast CT chest wo IV contrast Imaging Routine Hemoptysis Expected: 03/26/2025, Expires: 02/23/2026 [facility] Work Phone: Comment on above: Expected: 03/26/2025, Expires: Start: 02-15-2025 End: 02-15-2025 ambulatory [facility] Start: 02-15-2025 End: 02-15-2025 Patient encounter procedure [facility] Start: 02-14-2025 End: 02-14-2025 ambulatory [facility] Infectious Disease [facility] Start: 02-14-2025 End: 02-14-2025 Patient encounter procedure [facility] Special [facility] Start: 12-25-2024 End: 12-25-2024 Patient encounter procedure 12/25/2024 10:00 AM EDT Office Visit [facility] [address] [place] [address] Sophia Lara, LOG HANDLING EQUIPMENT OPERATOR - WHITE SHOE RAGGER [address] [place] [address] [facility] Start: 12-18-2024 End: 12-18-2024 Telemedicine consultation with patient 12/18/2024 1:00 PM EDT Telemedicine [facility] Cardiovascular Thoracic Surgery - [place] [address] [place] [phone] Osiris Terrell, LOG HANDLING EQUIPMENT OPERATOR - WHITE SHOE RAGGER [address] [place] [address] [facility] Cardiovascular Thoracic Surgery - [place] Start: 10-09-2024 End: 10-09-2024 Patient encounter procedure 10/09/2024 3:00 PM EST Appointment [facility] [place] [address] [facility] [address] [place] [phone] Jr Shah MD [address] [facility] [address] [place] [address] [facility] [place] Start: 09-27-2024 Medicare Advantage Annual Wellness Visit Medicare Advantage Annual Wellness Visit [facility] Start: 09-27-2024 [facility] Start: 09-13-2024 End: 09-13-2024 Patient encounter procedure 09/13/2024 3:00 PM EST Appointment [facility] 1 [place] [address] [facility] [address] [place] [phone] Jr Shah MD [address] [facility] [address] [place] [address] [facility] [place] Start: 09-11-2024 End: 08-28-2026 Heart Transthoracic Transthoracic echocardiogram (TTE) complete with contrast, bubble, strain, and 3D PRN CV Echocardiography Routine Nonrheumatic aortic valve stenosis Expected: 09/11/2024 (Approximate), Expires: 08/28/2026 [facility] Work Phone: Comment on above: Expected: 09/11/2024 (Approximate), Expi res: 08/28/2026 Start: 08-17-2024 Thyroid stimulating hormone measurement TSH Level [facility] Start: 05-28-2024 COVID-19 Vaccine ( season) COVID-19 Vaccine ( season) [facility] Start: 05-28-2024 Influenza vaccination [facility] Start: 05-28-2024 [facility] Start: 02-07-2024 End: 02-07-2024 Patient encounter procedure [facility] Start: 11-29-2023 End: 11-29-2023 Patient encounter procedure 11/29/2023 3:00 PM EST Appointment [facility] CT Imaging [address] [place] [phone] Fransisco Pineda, LOG HANDLING EQUIPMENT OPERATOR [address] [place] [address] [facility] CT Imaging Start: 11-24-2023 End: 11-24-2023 Patient encounter procedure 11/24/2023 1:30 PM EST Office Visit [facility] Dermatology [address] [facility] [address] [place] [phone] Madhuri De La Rosa MD [address] [facility] [place] [address] [facility] Dermatology Start: 09-27-2023 Behavioral Health Screening Behavioral Health Screening [facility] Start: 09-27-2023 Medicare Advantage Annual Wellness Visit Medicare [facility] Annual Wellness Visit [facility] Start: 09-07-2023 End: 09-07-2024 CT Chest for screening WO contrast CT lung screening low dose Imaging Routine Nicotine dependence, cigarettes, uncomplicated Personal history of nicotine dependence Expected: 09/07/2023, Expires: 09/07/2024 [facility] Work Phone: Comment on above: Expected: 09/07/2023, Expires: Start: 05-28-2023 COVID-19 Vaccine ( season) COVID-19 Vaccine ( season) [facility] Start: 05-28-2023 Influenza vaccination Influenza Vaccine (#1) [facility] Start: 05-10-2023 DIABETES SCREEN DIABETES SCREEN [facility] Start: 05-10-2023 Diabetes Screening Diabetes Screening [facility] Start: 03-13-2023 DIABETES SCREEN DIABETES SCREEN [facility] Start: 05-28-2022 Influenza vaccination INFLUENZA (Season Ended) [facility] Start: 10-22-2021 End: 10-22-2021 Patient encounter procedure 10/22/2021 Office Visit Dermatology Madhuri De La Rosa MD [address] [facility] [place] [address] Dermatology [facility] Start: 05-28-2021 Influenza vaccination [facility] Start: 05-20-2021 Hepatitis B Vaccines (1 of 1 - Risk Dialysis 4-dose series) Hepatitis B Vaccines (1 of 1 - Risk Dialysis 4-dose series) [facility] Start: 05-20-2021 [facility] Start: 05-10-2021 HEMOGLOBIN/HEMATOCRIT HEMOGLOBIN/HEMATOCRIT [facility] Start: 05-10-2021 SERUM CREATININE SERUM CREATININE [facility] [facility] Start: 12-08-2020 Annual Wellness Visit (AWV) Annual Wellness Visit (AWV) [facility] Start: 2020 PROSTATE CANCER SCREENING DISCUSSION PROSTATE CANCER SCREENING DISCUSSION [facility] Start: 2020 Prostate specific antigen measurement Prostate Cancer Screening Discussion [facility] Start: 11-12-2020 End: 11-12-2020 Office Visit 11/12/2020 Office Visit Dermatology Madhuri De La Rosa MD [address] [facility] [place] [address] [phone] Dermatology Start: 10-19-2020 Screening for malignant neoplasm of colon [facility] Start: 05-28-2020 Influenza vaccination [facility] Start: 05-28-2019 Influenza vaccination Flu vaccine (#1) [facility] Work Phone: Start: 2015 Screening for malignant neoplasm of colon Colon cancer screen colonoscopy [place], [place] Start: 2015 Shingles Vaccine (1 of 2) Shingles Vaccine (1 of 2) [facility] Start: 2015 SHINGRIX VACCINE (1 of 2) SHINGRIX VACCINE (1 of 2) [facility] Start: 2015 Tuberculosis screening COLORECTAL CANCER SCREENING,SEE MODIFIER [facility] Start: 2015 Zoster Vaccines (1 of 2) Zoster Vaccines (1 of 2) [facility] Start: 2015 [facility] Start: 2010 COLOGUARD (FIT-DNA) COLOGUARD (FIT-DNA) [facility] Start: 2010 Colonoscopy COLONOSCOPY [facility] Start: 2010 COLORECTAL CANCER SCREENING COLORECTAL CANCER SCREENING [facility] Start: [address] COLONOGRAPHY [facility] Start: 2010 FECAL OCCULT BLOOD FECAL OCCULT BLOOD [facility] Start: 2010 Screening for malignant neoplasm of colon [facility] Start: 2010 SIGMOIDOSCOPY SIGMOIDOSCOPY [facility] Start: 2005 Diabetes screen Diabetes screen [place], [place] Start: 2005 Lipid panel Lipid screen [facility] Start: 2000 Diabetes screen Diabetes screen [facility] Start: 2000 Lipid panel Lipid Screening [facility] Start: 2000 LIPID SCREEN LIPID SCREEN [facility] Start: 1984 DTaP/Tdap/Td vaccine (1 - Tdap) DTaP/Tdap/Td vaccine (1 - Tdap) [facility] Start: 1984 DTaP/Tdap/Td Vaccines (1 - Tdap) DTaP/Tdap/Td Vaccines (1 - Tdap) [facility] Start: 1984 Pneumococcal Vaccine: 50+ Years (1 of 2 - PCV) Pneumococcal Vaccine: 50+ Years (1 of 2 - PCV) [facility] Start: 1984 Urine microalbumin profile [facility] Start: 1984 [facility] Start: 1983 ANNUAL PCP TEAM CHRONIC DISEASE VISIT ANNUAL PCP TEAM CHRONIC DISEASE VISIT [facility] Start: 1983 Anxiety Screening Anxiety Screening [facility] Start: 1983 Depression Screening Depression Screening [facility] Start: 1983 Diabetes mellitus screening [facility] Start: 1983 HEPATITIS C SCREENING HEPATITIS C SCREENING [facility] Start: 1983 HIV SCREENING HIV SCREENING [facility] Start: 1983 HIV screening HIV Screening [facility] Start: 1977 Adult depression screening assessment DEPRESSION SCREENING [facility] Start: 1977 [facility] Start: 1971 Pneumococcal 0-64 years Vaccine (1 of 1 - PPSV23) Pneumococcal 0-64 years Vaccine (1 of 1 - PPSV23) [place], [place] Start: 1971 Pneumococcal 0-64 years Vaccine (1 of 2 - PPSV23) Pneumococcal 0-64 years Vaccine (1 of 2 - PPSV23) [facility] Start: 1971 Pneumococcal vaccination Pneumococcal Vaccine (1 of 2 - PCV) [facility] Start: 1971 Pneumococcal Vaccine: Pediatrics (0 to 5 Years) and At-Risk Patients (6 to 64 Years) (1 - PCV) Pneumococcal Vaccine: Pediatrics (0 to 5 Years) and At-Risk Patients (6 to 64 Years) (1 - PCV) [facility] Start: 1971 Pneumococcal Vaccine: Pediatrics (0 to 5 Years) and At-Risk Patients (6 to 64 Years) (1 of 2 - PCV) Pneumococcal Vaccine: Pediatrics (0 to 5 Years) and At-Risk Patients (6 to 64 Years) (1 of 2 - PCV) [facility] Start: 1970 COVID-19 Vaccine (1) COVID-19 Vaccine (1) [facility] Start: 1966 MMR Vaccines (1 of 1 - Standard series) MMR Vaccines (1 of 1 - Standard series) [facility] Start: 1966 [facility] Start: 05-17-1966 COVID-19 Vaccine (#1) COVID-19 Vaccine (#1) [facility] Start: 05-17-1966 Examination of skin Derm Melanoma Skin Check [facility] Start: 1965 Lipid panel [facility] Start: 1965 Medicare Advantage Annual Wellness Visit (AWV) Medicare Advantage Annual Wellness Visit (AWV) [facility] Start: 1965 Screening for malignant neoplasm of colon [facility] R&V Basic metabolic 2000 panel - Serum or Plasma Basic Metabolic Panel Lab Routine Daily until discontinued starting 10/23/2019, 5 completed [facility] Work Phone: Comment on above: Daily until discontinued starting 2019, 5 completed CBC W Auto Different ial panel - Blood CBC Auto Differential Lab Routine Daily until discontinued starting 10/23/2019, 5 completed [facility] Work Phone: Comment on above: Daily until discontinued starting 2019, 5 completed End: 12-25-2022 COLONOSCOPY DIAGNOSTIC COLONOSCOPY DIAGNOSTIC Endoscopy Routine Acute blood loss anemia Rectal bleeding 1 Occurrences starting 12/25/2021 until 12/25/2022 [facility] Work Phone: Comment on above: 1 Occurrences starting 12/25/2021 until 12/25/2022 End: 12-30-2022 COLONOSCOPY DIAGNOSTIC COLONOSCOPY DIAGNOSTIC Endoscopy Routine Other iron deficiency anemia Rectal bleeding 1 Occurrences starting 12/30/2021 until 12/30/2022 [facility] Work Phone: Comment on above: 1 Occurrences starting 12/30/2021 until 12/30/2022 Electrocardiogram EKG BIC 2019 3:36 PM EDT [facility] End: 01-22-2025 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 [facility] [employer] Work Phone: End: 10-19-2019 Hemodialysis inpatient Hemodialysis inpatient Dialysis Routine One Time for 1 Occurrences starting 10/19/2019 until 10/19/2019 [employer] Work Phone: Comment on above: One Time for 1 Occurrences starting 09/28 until 10/19/2019 End: 10-21-2019 Hemodialysis inpatient Hemodialysis inpatient Dialysis Routine One Time for 1 Occurrences starting 10/21/2019 until 10/21/2019 [employer] Work Phone: Comment on above: One Time for 1 Occurrences starting 09/28 until 10/21/2019 End: 10-23-2019 Hemodialysis inpatient Hemodialysis inpatient Dialysis Routine One Time for 1 Occurrences starting 10/23/2019 until 10/23/2019 [employer] Work Phone: Comment on above: One Time for 1 Occurrences starting 09/28 until 10/23/2019 Hemodialysis inpatient Hemodialy sis inpatient Dialysis Routine Every MWF until discontinued starting 10/27/2019 [employer] Work Phone: Comment on above: Every MWF until discontinued starting End: 01-26-2025 Hemoglobin [Mass/volume] in Blood [facility] [employer] Work Phone: End: 02-21-2025 Legionella and Streptococcus Urine Antigen [facility] [employer] Work Phone: Magnesium [Mass/volu me] in Serum or Plasma MAGNESIUM Lab Routine Daily until discontinued starting 10/23/2019, 5 completed [employer] Work Phone: Comment on above: Daily until discontinued starting 2019, 5 completed End: 01-22-2025 Peripheral blood smear [facility] End: 01-22-2025 Peripheral Blood Smear [facility] Peripheral blood smear [facility] Peripheral Blood Smear [facility] Phosphate [Mass/volu me] in Serum or Plasma Phosphorus Lab Routine Daily until discontinued starting 10/23/2019, 5 completed [employer] Work Phone: Comment on above: Daily until discontinued starting 2019, 5 completed End: 09-15-2021 Special treatments and procedures [facility] Work Phone: Comment on above: Once for 1 Occurrences starting 09/15/20 21 until 09/15/2021 End: 10-26-2019 Surgical Pathology Surgical Pathology Lab STAT Once for 1 Occurrences starting 10/26/2019 until 10/26/2019 [facility] Work Phone: Comment on above: Once for 1 Occurrences starting 10/26/19 20 until 10/26/2019 Surgical Pathology Surgical Path ology Lab STAT 10/26/2019 10:00 AM EST [facility] Work Phone: End: 02-21-2025 Urine Hold Cup [facility] Immunizations Immunization Date Immunization Notes Care Provider Fa [facility] 05-20-2020 hepatitis B vaccine, unspecified formulation Jese Frank MD Work Phone: [facility] 01-19-2020 hepatitis B vaccine, unspecified formulation Jese Frank MD Work Phone: [facility] 12-19-2019 hepatitis B vaccine, unspecified formulation Jese Frank MD Work Phone: [facility] 11-15-2019 hepatitis B vaccine, unspecified formulation Jese Frank MD Work Phone: [facility] Payers Date Payer Category Payer Self-pay 2023 Medicaid [facility] [id number] 2023 Medicare HMO [id number] 2023 Medicare [id number] 2020 Medicaid [id number] 2020 Medicare [id number] 2020 Medicare [id number] 2020 Unknown [id number] 2020 Medicaid MEDICAID [facility] MEDICAID [id number] 2020-Present Medicaid [id number] 2019 Medicare MEDICARE MEDICAR E A AND B [id number] 2019-Present [place], [place] Medicare [id number] Unknown [id number] Unknown [id number] Unknown [id number] Social History Date Type Detail Facility Start: 1993 End: 10-13-2024 Tobacco smoking status SDIS Current every day smoker [facility] Start: 1993 History of tobacco use Cigarette Smoker [facility] Work Phone: Start: 03-13-2020 End: 02-21-2025 Cigarettes smoked current (pack per day) - Reported [facility] Work Phone: Start: 03-13-2020 End: 02-20-2025 Tobacco use and exposure [facility] Start: 03-13-2020 End: 08-16-2023 Alcohol intake Current drinker of alcohol (finding) [facility] Work Phone: Start: 1965 Sex Assigned At Not on file [facility] Work Phone: Start: 12-15-2021 End: 05-01-2023 Exposure to SARS-CoV-2 (event) Not sure [facility] Start: 10-19-2019 Alcohol Comment on weekends [facility] Work Phone: Start: 12-25-2021 End: 03-04-2025 Alcohol intake Ex-drinker (finding) [facility] Start: 1965 Sex Assigned At Male [facility] Start: 05-01-2023 End: 02-21-2025 Alcohol Use Disorder Identification Test - Consumption [AUDIT-C] [facility] How often to you hav e a drink containing alcohol? Never [facility] How many standard dr inks containing alcohol do you have on a typical day? Patient does not drink [facility] Start: 11-15-2020 Gender identity Identifies as male gender (finding) [facility] Start: 08-10-2020 Sexual orientation Heterosexual (finding) [facility] Start: 04-27-2022 Sex Male (finding) [facility] History of tobacco use Passive smoker [facility] Start: 10-13-2024 Tobacco Comment Started at 28, 3 PPD, tapered down to 1 PPD in 2020 after quitting drinking. 10/27/24 [facility] Tobacco smoking stat us SDIS Unknown if ever smoked [facility] Work Phone: Start: 02-20-2025 Tobacco smoking status SDIS Ex-smoker [facility] Start: 1993 History of tobacco use Current smoker [facility] How often do you nee d to have someone help you when you read instructions, pamphlets, or other written material from your doctor or pharmacy [SILS] Sometimes [facility] Has the electric, [employer], oil, or water company threatened to shut off services in your home in past 12Mo No [facility] Do you feel stress - tense, restless, nervous, or anxious, or unable to sleep at night because your mind is troubled all the time - these days [OSQ] To some extent [facility] (I/We) worried wheth er (my/our) food would run out before (I/we) got money to buy more. Never true [facility] Medical Equipment Procedure Code Equipment Code Equipment Origin al Text Equipment Identifier Dates [id number] Start: 10-12-2024 [id number] Start: 10-09-2024 [id number] Start: 10-14-2024 [id number] Start: 10-14-2024 [id number] Start: 10-14-2024 [id number] Start: 10-14-2024 [id number] Start: 10-14-2024 [id number] Start: 10-14-2024 [id number] Start: 10-14-2024 [id number] Start: 11-03-2024 [id number] Start: 01-30-2025 Functional Status Date Assessment Result Facility [facility] Clinical Notes 10-24-2019 to 03-08-2025 Christelle Eckert RN - 03/08/2025 1:32 PM EDTTelephone Encounter - Stuart Anderson - 03/08/2025 1:03 PM EDTTelephone Encounter - Stuart Anderson - 03/08/2025 1:03 PM EDTProcedure Summary Note Date & Type Note Facility 03-08-2025 History of Presen t illness Narrative Pt was followed by the Palliative Care Team during hospitalization at [facility]. Provider is recommending continued Palliative follow up in the community. Referral made too [facility] Palliative Care Team, faxed info to [phone] documented in this encounter [facility] 03-08-2025 Telephone encount er Note 2nd attempt called and spoke to the Alyssa the Nurse for the patient at the facility he lives at. She states Sabino is the person who schedules the appointments and she is on vacation and wont be back till next Wednesday. I will try again next wednesday [facility] 03-08-2025 Miscellaneous Notes Formattin g of this note might be different from the original. 2nd attempt called and spoke to the Alyssa the Nurse for the patient at the facility he lives at. She states Sabino is the person who schedules the appointments and she is on vacation and wont be back till next Wednesday. I will try again next wednesday Called spoke with a nurse at the [...] this? Thank you documented in this encounter [facility] 03-05-2025 History of Presen t illness Narrative Images from the original note were not included. PHYSICAL THERAPY [facility] Treatment Note Name/MRN: Jair Snyder ([id number]) Date of : 1965 Age: 59 y.o. Room/Bed: W3-334/W3-334 A Discharge Recommendation: Longterm Facility Equipment Needed: (tbd) Assessment Increased time [...] Raw Score (No Stairs) : 19 [id number] -HLM Score: Walked 25 ft or [...] Timed Code Treatment Minutes: (fa-gt) Merlene León OFFICE ADMINISTRATION INSTRUCTOR Cosigned by Anthony Black, PT at 03/05/2025 2:53 PM EDT Nephrology [...] any questions or concerns Bree Molina APRN WHITE SHOE RAGGER A-G MILITARY TECHNOLOGY SPECIALIST [facility] [phone] I reviewed with LOG HANDLING EQUIPMENT OPERATOR-WHITE SHOE RAGGER the medical history and the findings on physical examination. I discussed the patient s diagnosis and concur with the treatment plan as documented in his note. Please call [phone] or message me through [employer] with any questions or concerns. [facility] Anticoagulation Management Service ([facility]) Inpatient Warfarin Consult HPI: Jun Snyder is a 59 y.o. male admitted on 02/20/2025 for Hemoptysis [R04.2]. Medical History[1] Patient is on warfarin for mechanical AVR and has a goal INR 2.0 - 3.0. Patient was referred to [facility], but so far has been managed at facilities, most recently [facility]. Pt's home dose of warfarin is 1.5mg daily except 2.5mg on MWF. Pt's last INR at the facility was 1.4 on 02/20. S/sx of bleeding= none noted Interacting medications= none Labs: Recent Labs 03/03/25 0212 03/04/25 0156 03/05/25 0343 HGB 8.3* 7.7* 7.7* HCT 27.8* 25.9* 25.7* PLT [phone] Recent Labs 03/05/25 0343 INR 1.8* Date INR Dose 03/05 1.8 7.5mg 03/04 1.5 7.5 mg 03/03 1.6 6 mg 03/02 1.4 5mg 03/01 1.4 4mg 02/28 1.3 [...] over when discharged from facility. Tiffanie Dial [facility] Consult Service is available daily [phone] via [employer] Secure Chat. [1] Past Medical History: Diagnosis Date Acute renal failure (ARF) ([facility]) 10/19/2019 Anemia 12/30/2021 Calcification of abdominal aorta ([facility]) 10/08/202309/[address] abd Diverticulosis 10/08/2023 ESRD on hemodialysis ([facility]) ([facility]) 10/26/2019 Hemodialysis patient ([facility]) ([facility]) HTN (hypertension) 12/01/2022 Hypertension IgA nephropathy 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 10/26/2019 Missed vaccination due to patient refusal 10/08/2023 Has a number of non-scientific based beliefs which interfere with his understanding and acceptance of the medical benefit of vaccination. Nonrheumatic aortic valve stenosis 10/08/2023 Paroxysmal A-fib (CMS/HCC) (HCC) 08/18/2023 Tobacco abuse 10/08/2023 Hospitalist Progress Note - [facility] [employer] ([facility]) 03/05/2025 7:13 AM [phone]: Please page me for patient care issues. [phone]: Please page [facility] Hospitalist - [facility] for any issues. Subjective and Objective: Admit [...] was bright red and it stopped just OFFICE ADMINISTRATION INSTRUCTOR when in transport. Adult diet Regular Dietary [...] - (0 mL/kg) Weight: 60.8 kg @IODETAILS@ @[id number]@ Medications: Continuous Meds[1] Scheduled Meds[2] Recent Labs [...] CHOL No results found for: PHART, PO2ART, [id number] Recent Labs 03/04/25 0156 03/04/25 0946 03/05/25 [...] medically stable for discharge - Location - [facility] ([facility]) - Pending the following - dispo, [...] Extended Emergency Contact Information Primary Emergency Contact: LillianAdrianOmar Mobile Relation: Child Secondary Emergency Contact: TarunToma Mobile Relation: Partner Anthony Hurtado DO Division of Hospitalist Medicine Inpatient Medical Services/[facility] [1] heparin, 5-30 Units/kg/hr, Last Rate: 21 Units/kg/hr (03/05/25 7443) [2] B complex-vitamin C-folic acid, 1 capsule, [...] original note were not included. PHYSICAL THERAPY [facility] Name/MRN: Jair Snyder ([id number]) Date: 03/04/2025 Attempted to initiate PT this date; upon arrival, patient states he is needs to have a bowel movement and does not want to do PT. Offered to ambulate patient to bathroom or use of a bedpan however patient declines. Will continue to follow. Emily Stanley PTA Cosigned by Darryn Tay PT at 03/04/2025 3:38 PM EDT Hospitalist Progress Note - [facility] [employer] ([facility]) 03/04/2025 9:11 AM [phone]: Please page me for patient care issues. [phone]: Please page [facility] Hospitalist - [facility] for any issues. Subjective and Objective: Admit [...] was bright red and it stopped just OFFICE ADMINISTRATION INSTRUCTOR when in transport. Adult diet Regular Dietary [...] - (0 mL/kg) Weight: 60.8 kg @IODETAILS@ @[id number]@ Medications: Continuous Meds[1] Scheduled Meds[2] Recent Labs [...] CHOL No results found for: PHART, PO2ART, [id number] Recent Labs 03/02/25 0004 03/03/25 0212 03/04/25 [...] 03/04 - 05/05 - Location - SNF ([facility]) - Pending the following - INR [...] DO Division of Hospitalist Medicine Inpatient Medical Services/[facility] [1] heparin, 5-30 Units/kg/hr, Last Rate: 20 [...] electrolyte and CBC daily Maryam Marcelo DO [facility] Anticoagulation Management Service ([facility]) Inpatient Warfarin Consult HPI: Jun Snyder is a 59 y.o. male admitted on 02/20/2025 for Hemoptysis [R04.2]. Medical History[1] Patient is on warfarin for mechanical AVR and has a goal INR 2.0 - 3.0. Patient was referred to [facility], but so far has been managed at facilities, most recently [facility]. Pt's home dose of warfarin is 1.5mg [...] 03/03/25 0212 INR 1.6* Date INR Dose 03/04 1.5 7.5 mg 6/7 1.6 6 mg 6/6 1.4 5mg 6/5 1.4 4mg 6/4 1.3 3mg / 1.3 2mg 6/ 1.3 1.5mg 02/25 1.3 1 mg 02/24 [...] PharmD [facility] Consult Service is available daily [phone] via [employer] Secure Chat. [1] Past Medical History: Diagnosis Date Acute renal failure (ARF) ([facility]) 10/19/2019 Anemia 12/30/2021 Calcification of abdominal aorta ([facility]) 10/08/202309/[address] abd Diverticulosis 10/08/2023 ESRD on hemodialysis ([facility]) ([facility]) 10/26/2019 Hemodialysis patient ([facility]) ([facility]) HTN (hypertension) 12/01/2022 Hypertension IgA nephropathy 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 10/26/2019 Missed vaccination due to patient refusal 10/08/2023 Has a number of non-scientific based beliefs which interfere with his understanding and acceptance of the medical benefit of vaccination. Nonrheumatic aortic valve stenosis 10/08/2023 Paroxysmal A-fib ([facility]) ([facility]) 08/18/2023 Tobacco abuse 10/08/2023 Hospitalist Progress Note - [facility] [employer] ([facility]) 03/03/2025 8:37 AM [phone]: Please page me for patient care issues. [phone]: Please page [facility] Hospitalist - [facility] for any issues. Subjective and Objective: Admit [...] was bright red and it stopped just OFFICE ADMINISTRATION INSTRUCTOR when in transport. Adult diet Regular Dietary [...] (0.4 mL/kg) [Drains:25] Weight: 60.8 kg @IODETAILS@ @[id number]@ Medications: Continuous Meds[1] Scheduled Meds[2] Recent Labs [...] CHOL No results found for: PHART, PO2ART, [id number] Recent Labs 03/01/25 0003 03/02/25 0004 03/03/25 0212 INR 1.4* 1.4* 1.6* No results for [...] Date - 03/04 - Location - SNF ([facility]) - Pending the following - INR [...] DO Division of Hospitalist Medicine Inpatient Medical Services/[facility] [1] heparin, 5-30 Units/kg/hr, Last Rate: 20 [...] any questions or concerns Bree Molina APRN WHITE SHOE RAGGER A-G MILITARY TECHNOLOGY SPECIALIST [facility] [phone] Pt seen and examined independently by me. I reviewed with DENIA-SAMIA the medical history and the findings on physical examination. I discussed the patient s diagnosis and concur with the treatment plan as documented in his note. Please call [phone] or message me through [employer] with any questions or concerns. Hospitalist Progress Note - [facility] [employer] ([facility]) 03/02/2025 8:20 AM [phone]: Please page me for patient care issues. [phone]: Please page [facility] Hospitalist - [facility] for any issues. Subjective and Objective: Admit [...] was bright red and it stopped just OFFICE ADMINISTRATION INSTRUCTOR when in transport. Adult diet Regular Dietary [...] (0.7 mL/kg) [Drains:40] Weight: 60.8 kg @IODETAILS@ @[id number]@ Medications: Continuous Meds[1] Scheduled Meds[2] Recent Labs [...] CHOL No results found for: PHART, PO2ART, CSD1YUY Recent Labs 02/28/25 0004 03/01/25 0003 03/02/25 [...] - Date - 03/03 - Location - [facility] ([facility]) - Pending the following - INR [...] DO Division of Hospitalist Medicine Inpatient Medical Services/[facility] [1] heparin, 5-30 Units/kg/hr, Last Rate: 19 Units/kg/hr (03/02/25 0813) [2] B complex-vitamin C-folic acid, 1 capsule, Oral, Daily metoprolol tartrate, 25 mg, Oral, BID pantoprazole, 40 mg, Oral, BID AC piperacillin-tazobactam, 2,250 mg, IntraVENous, q6h QUEtiapine, 25 mg, Oral, Nightly sevelamer carbonate, 800 mg, Oral, TID WC warfarin, 5 mg, Oral, Once [facility] Anticoagulation Management Service ([facility]) Inpatient Warfarin Consult HPI: Jun Snyder is a 59 y.o. male admitted on 02/20/2025 for Hemoptysis [R04.2]. Medical History[1] Patient is on warfarin for mechanical AVR and has a goal INR 2.0 - 3.0. Patient was referred to [facility], but so far has been managed at facilities, most recently [facility]. Pt's home dose of warfarin is 1.5mg [...] RPh [facility] Consult Service is available daily [phone] via [employer] Secure Chat. [1] Past Medical History: Diagnosis Date Acute renal failure (ARF) ([facility]) 10/19/2019 Anemia 12/30/2021 Calcification of abdominal aorta ([facility]) 10/08/202309/[address] abd Diverticulosis 10/08/2023 ESRD on hemodialysis ([facility]) ([facility]) 10/26/2019 Hemodialysis patient ([facility]) ([facility]) HTN (hypertension) 12/01/2022 Hypertension IgA nephropathy 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 10/26/2019 Missed vaccination due to patient refusal 10/08/2023 Has a number of non-scientific based beliefs which interfere with his understanding and acceptance of the medical benefit of vaccination. Nonrheumatic aortic valve stenosis 10/08/2023 Paroxysmal A-fib ([facility]) ([facility]) 08/18/2023 Tobacco abuse 10/08/2023 Images from the original note were not included. PHYSICAL THERAPY [facility] Treatment Note Name/MRN: Jair Snyder ([id number]) Date of : 1965 Age: 59 y.o. Room/Bed: W3-334/W3-334 A Discharge Recommendation: Longterm Facility Equipment Needed: No Assessment Good distance, [...] (No Stairs) : 15 JH-HLM JH-HLM Score: Walked 25 ft or [...] 4:34 PM EDT Associated attestation - Anthony Black, PT - 03/01/2025 4:34 PM EDT Did not have opportunity today to speak to OFFICE ADMINISTRATION INSTRUCTOR re: recommendation. Mobility appears to be consistent with homegoing, but know that medical conditions and other factors clearly could influence recommendations. Images from the original note were not included. OCCUPATIONAL THERAPY [facility] Treatment Note Name/MRN: Jair Snyder ([id number]) Date of : 1965 Age: 59 y.o. Room/Bed: W3-334/W3-334 A Discharge Recommendation: Longterm Facility Other: DME TBD at next level [...] any questions or concerns Bree Molina APRN WHITE SHOE RAGGER A-G MILITARY TECHNOLOGY SPECIALIST [facility] [phone] Pt seen and examined independently by me. I reviewed with Jun Maki, the medical history and the findings on physical examination. I discussed the patient s diagnosis and concur with the treatment plan as documented in his note. Please call [phone] or message me through [employer] with any questions or concerns. Hospitalist Progress Note - [facility] [employer] ([facility]) 03/01/2025 9:51 AM [phone]: Please page me for patient care issues. [phone]: Please page [facility] Hospitalist - [facility] for any issues. Subjective and Objective: Admit [...] was bright red and it stopped just OFFICE ADMINISTRATION INSTRUCTOR when in transport. Adult diet Regular Dietary Orders (From admission, onward) Start Ordered 02/27/25 1254 Supplement:Breakfast, Dinner; Nepro w/CARB Steady Until discontinued Question Answer Comment Frequency Breakfast Frequency Dinner Select supplement: Nepro w/CARB Steady 02/27/25 1254 02/21/25 1021 Adult diet Regular Diet effective now Question: Diet type Answer: Regular 02/21/25 1021 No intake/output data recorded. @IODETAILS@ @[id number]@ Medications: Continuous Meds[1] Scheduled Meds[2] Recent Labs [...] CHOL No results found for: PHART, PO2ART, [id number] Recent Labs 02/27/25 0010 02/28/25 0004 03/01/25 [...] 03/01 - 03/02 - Location - SNF ([facility]) - Pending the following - INR [...] DO Division of Hospitalist Medicine Inpatient Medical Services/[facility] [1] heparin, 5-30 Units/kg/hr, Last Rate: 18 Units/kg/hr (03/01/25 0729) [2] B complex-vitamin C-folic acid, 1 capsule, Oral, Daily metoprolol tartrate, 25 mg, Oral, BID pantoprazole, 40 mg, Oral, BID AC piperacillin-tazobactam, 2,250 mg, IntraVENous, q6h QUEtiapine, 25 mg, Oral, Nightly sevelamer carbonate, 800 mg, Oral, TID WC warfarin, 4 mg, Oral, Once Images from the original note were not included. PHYSICAL THERAPY [facility] Name/MRN: Jair Snyder ([id number]) Date: 03/01/2025 Leaving for dialysis. Return later time/date for PT. Merlene León PTA Cosigned by Anthony Black, PT at 03/01/2025 8:42 AM EDT [facility] Anticoagulation Management Service ([facility]) Inpatient Warfarin Consult HPI: Jun Snyder is a 59 y.o. male admitted on 02/20/2025 for Hemoptysis [R04.2]. Medical History[1] Patient is on warfarin for mechanical AVR and has a goal INR 2.0 - 3.0. Patient was referred to [facility], but so far has been managed at facilities, most recently [facility]. Pt's home dose of warfarin is 1.5mg [...] RPh [facility] Consult Service is available daily [phone] via [employer]. [1] Past Medical History: Diagnosis Date Acute renal failure (ARF) ([facility]) 10/19/2019 Anemia 12/30/2021 Calcification of abdominal aorta ([facility]) 10/08/202309/[address] abd Diverticulosis 10/08/2023 ESRD on hemodialysis ([facility]) ([facility]) 10/26/2019 Hemodialysis patient ([facility]) ([facility]) HTN (hypertension) 12/01/2022 Hypertension IgA nephropathy 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 10/26/2019 Missed vaccination due to patient refusal 10/08/2023 Has a number of non-scientific based beliefs which interfere with his understanding and acceptance of the medical benefit of vaccination. Nonrheumatic aortic valve stenosis 10/08/2023 Paroxysmal A-fib ([facility]) ([facility]) 08/18/2023 Tobacco abuse 10/08/2023 Nephrology Progress Note [...] any questions or concerns Bree Molina APRN WHITE SHOE RAGGER A-G MILITARY TECHNOLOGY SPECIALIST [facility] [phone] Pt seen and examined independently by me. I reviewed with DENIA-SAMIA the medical history and the findings on physical examination. I discussed the patient s diagnosis and concur with the treatment plan as documented in his note. Please call [phone] or message me through [employer] with any questions or concerns. Hospitalist Progress Note - [facility] - [employer] ([facility]) 02/28/2025 8:23 AM [phone]: Please page me for patient care issues. [phone]: Please page [facility] Hospitalist - [facility] for any issues. Subjective and Objective: Admit [...] was bright red and it stopped just OFFICE ADMINISTRATION INSTRUCTOR when in transport. Adult diet Regular Dietary [...] [Urine:450 (0.2 mL/kg/hr)] Weight: 60.8 kg @IODETAILS@ @[id number]@ Medications: Continuous Meds[1] Scheduled Meds[2] Recent Labs [...] CHOL No results found for: PHART, PO2ART, BDS7QKH Recent Labs 02/25/25 2345 02/27/25 0010 02/28/25 [...] 03/01 - 03/02 - Location - SNF ([facility]) - Pending the following - INR [...] DO Division of Hospitalist Medicine Inpatient Medical Services/[facility] [1] heparin, 5-30 Units/kg/hr, Last Rate: 18 Units/kg/hr (02/28/25 0714) [2] B complex-vitamin C-folic acid, 1 capsule, Oral, Daily metoprolol tartrate, 25 mg, Oral, BID pantoprazole, 40 mg, Oral, qAM AC piperacillin-tazobactam, 4,500 mg, IntraVENous, q8h QUEtiapine, 25 mg, Oral, Nightly sevelamer carbonate, 800 mg, Oral, TID WC warfarin, 3 mg, Oral, Once Images from the original note were not included. [facility] Wound Care/NPWT Progress Note Jun Snyder AGE: [...] premedicated for pain with pain medication, per nursing staff development coordinator, prior to wound VAC dressing change. Wet [...] apply Betadine and allow to dry, leave CHANGEOVER OPERATOR daily and PRN Left plantar heel - unstageable pressure injury (POA): -cleanse with NS, apply Betadine and allow to dry, leave CHANGEOVER OPERATOR daily and PRN Right wrist Abrasion: -cleanse with antibacterial soap/water, leave CHANGEOVER OPERATOR daily Sacral Stage 4 pressure injury (POA): [...] to follow Recommend to follow up at [facility] Outpatient wound care center after hospital discharge. [...] History: Diagnosis Date Acute renal failure (ARF) ([facility]) 10/19/2019 Anemia 12/30/2021 Calcification of abdominal aorta (HCC) 10/08/202309/[address] abd Diverticulosis 10/08/2023 ESRD on hemodialysis ([facility]) ([facility]) 10/26/2019 Hemodialysis patient ([facility]) ([facility]) HTN (hypertension) 12/01/2022 Hypertension IgA nephropathy 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 10/26/2019 Missed vaccination due to patient refusal 10/08/2023 Has a number of non-scientific based beliefs which interfere with his understanding and acceptance of the medical benefit of vaccination. Nonrheumatic aortic valve stenosis 10/08/2023 Paroxysmal A-fib (CMS/HCC) (HCC) 08/18/2023 Tobacco abuse 10/08/2023 [2] Past Surgical History: Procedure Laterality Date APPENDECTOMY CARDIAC CATHETERIZATION N/A 10/09/2024 Performed by Bob Watson MD at [facility] Cardiac Cath/EP Lab CARDIAC CATHETERIZATION Bilateral 11/01/2024 Performed by Bob Watson MD at [facility] Cardiac Cath/EP Lab CARDIAC CATHETERIZATION N/A 11/01/2024 Performed by Bob Watson MD at [facility] Cardiac Cath/EP Lab COLONOSCOPY N/A 01/24/2025 Performed by Chadd Davis MD at [facility] ENDOSCOPY FISTULAGRAM (HISTORICAL) Left 09/15/2021 LEFT UPPER ARM HX AV FISTULA CREATION IR EMBOLIZATION 10/14/2024 IR EMBOLIZATION 10/14/2024 [facility] SPECIAL PROCEDURES IR FISTULAGRAM 08/07/2022 IR FISTULAGRAM [...] Gill DO at 03/01/2025 2:50 PM EDT [facility] Anticoagulation Management Service ([facility]) Inpatient Warfarin Consult HPI: Jun Snyder is a 59 y.o. male admitted on 02/20/2025 for Hemoptysis [R04.2]. Medical History[1] Patient is on warfarin for mechanical AVR and has a goal INR 2.0 - 3.0. Patient was referred to [facility], but so far has been managed at facilities, most recently [facility]. Pt's home dose of warfarin is 1.5mg [...] over when discharged from facility. [facility]donnell [facility] Service is available daily [phone] via [employer] Secure Chat. [1] Past Medical History: Diagnosis Date Acute renal failure (ARF) ([facility]) 10/19/2019 Anemia 12/30/2021 Calcification of abdominal aorta (HCC) 10/08/202309/[address] abd Diverticulosis 10/08/2023 ESRD on hemodialysis (CMS/HCC) (HCC) 10/26/2019 Hemodialysis patient ([facility]) ([facility]) HTN (hypertension) 12/01/2022 Hypertension IgA nephropathy 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 10/26/2019 Missed vaccination due to patient refusal 10/08/2023 Has a number of non-scientific based beliefs which interfere with his understanding and acceptance of the medical benefit of vaccination. Nonrheumatic aortic valve stenosis 10/08/2023 Paroxysmal A-fib ([facility]) ([facility]) 08/18/2023 Tobacco abuse 10/08/2023 Nephrology Progress Note [...] from the original note were not included. [facility] - Infectious Diseases Attending Progress [...] Total Energy Requirements (kcals/day): 30-35 kcal/kg = 0776-4745 kcal Weight Used for Protein Requirements: Current [...] lb) (08/28/24) % Weight Change (Calculated): -34.6 [place] Body Weight (lbs) (Calculated): 166 lbs [place] Body Weight (Kg) (Calculated): 75 kg % [place] Body Weight (Calculated): 81.1 % BMI (kg/m2) [...] to determine Glenys Juares RD, LD Contact: [phone] Images from the original note were not included. PHYSICAL THERAPY [facility] Name/MRN: Jair Snyder ([id number]) Date: 02/27/2025 Request for see today note, [...] pt would schedule it in AM. Anthony Black PT Hospitalist Progress Note - [facility] - [employer] ([facility]) 02/27/2025 9:03 AM [phone]: Please page me for patient care issues. [phone]: Please page [facility] Hospitalist - [facility] for any issues. Subjective and Objective: Admit [...] was bright red and it stopped just OFFICE ADMINISTRATION INSTRUCTOR when in transport. Adult diet Regular Dietary Orders (From admission, onward) Start Ordered 02/21/25 1021 Adult diet Regular Diet effective now Question: Diet type Answer: Regular 02/21/25 1021 I/O last 3 completed shifts: In: 750 (12.3 mL/kg) [P.O.:750] Out: 450 (7.4 mL/kg) [Urine:450 (0.2 mL/kg/hr)] Weight: 60.8 kg @IODETAILS@ @[id number]@ Medications: Continuous Meds[1] Scheduled Meds[2] Recent Labs [...] CHOL No results found for: PHART, PO2ART, OJB1RFV Recent Labs 02/25/25 0028 02/25/25 2345 02/27/25 [...] Relation: Partner Anthony Hurtado DO [facility] Inpatient Medical Services/[facility] [1] heparin, 5-30 Units/kg/hr, Last Rate: 18 Units/kg/hr (02/27/25 0722) [2] B complex-vitamin C-folic acid, 1 capsule, Oral, Daily metoprolol tartrate, 25 mg, Oral, BID pantoprazole, 40 mg, Oral, qAM AC piperacillin-tazobactam, 4,500 mg, IntraVENous, q8h QUEtiapine, 25 mg, Oral, Nightly sevelamer carbonate, 800 mg, Oral, TID WC warfarin, 2 mg, Oral, Once [facility] Anticoagulation Management Service ([facility]) Inpatient Warfarin Consult HPI: Jun Snyder is a 59 y.o. male admitted on 02/20/2025 for Hemoptysis [R04.2]. Medical History[1] Patient is on warfarin for mechanical AVR and has a goal INR 2.0 - 3.0. Patient was referred to [facility], but so far has been managed at facilities, most recently [facility]. Pt's home dose of warfarin is 1.5mg [...] RPh [facility] Consult Service is available daily [phone] via [employer] Secure Chat. [1] Past Medical History: Diagnosis Date Acute renal failure (ARF) ([facility]) 10/19/2019 Anemia 12/30/2021 Calcification of abdominal aorta ([facility]) 10/08/202309/[address] abd Diverticulosis 10/08/2023 ESRD on hemodialysis ([facility]) ([facility]) 10/26/2019 Hemodialysis patient ([facility]) ([facility]) HTN (hypertension) 12/01/2022 Hypertension IgA nephropathy 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 10/26/2019 Missed vaccination due to patient refusal 10/08/2023 Has a number of non-scientific based beliefs which interfere with his understanding and acceptance of the medical benefit of vaccination. Nonrheumatic aortic valve stenosis 10/08/2023 Paroxysmal A-fib ([facility]) ([facility]) 08/18/2023 Tobacco abuse 10/08/2023 Images from the original note were not included. OCCUPATIONAL THERAPY [facility] Initial Evaluation Name/MRN: Jair Snyder ([id number]) Evaluation Date: 02/26/2025 Date of : 1965 Admission Date: 02/20/2025 5:41 PM Age: 59 y.o. Room/Bed: W3334/W3334 A Discharge Recommendation: Longterm Facility Assessment IMPRESSION: Pt would benefit from [...] Problem List Diagnosis Date Noted Severe malnutrition ([facility]) ([facility]) 02/21/2025 Hemoptysis 02/20/2025 Complication of tracheostomy ([facility]) ([facility]) 01/19/2025 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 01/12/2025 Acute respiratory failure with hypoxia ([facility]) [J96.01] 01/08/2025 Tracheostomy care ([facility]) [Z43.0] 01/08/2025 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[facility]) 01/08/2025 Sacral osteomyelitis ([facility]) ([facility]) 01/03/2025 Pneumonia of both lungs due to methicillin susceptible Staphylococcus aureus (MSSA) ([facility]) 01/01/2025 Leukocytosis 12/30/2024 Decubitus ulcer of sacral region, unstageable ([facility]) 12/30/2024 Peritonitis due to fungus ([facility]) 11/30/2024 History of abdominal surgery 11/30/2024 Leg DVT (deep venous thromboembolism), acute, left ([facility]) 11/30/2024 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, 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 of skin ([facility]) 11/30/2024 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[facility]) 11/30/2024 Pleural effusion 11/28/2024 Gastric ulceration 2024 Atrial flutter, unspecified type ([facility]) 10/03/2024 RSV (acute bronchiolitis due to respiratory syncytial virus) 10/03/2024 Diverticulosis 10/08/2023 Nonrheumatic aortic valve stenosis 10/08/2023 Calcification of abdominal aorta ([facility]) 10/08/2023 Missed vaccination due to patient refusal 10/08/2023 Tobacco abuse 10/08/2023 Alcohol use disorder in remission 10/08/2023 Paroxysmal A-fib ([facility]) ([facility]) 08/18/2023 HTN (hypertension) 12/01/2022 ESRD on hemodialysis ([facility]) ([facility]) 10/26/2019 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 10/26/2019 BRBPR (bright red blood per rectum) 01/19/2025 Aortic stenosis 10/03/2024 Upper GI bleed 10/03/2024 S/P AVR 10/03/2024 Acute hypoxic respiratory failure ([facility]) 10/03/2024 Acute encephalopathy 10/03/2024 Pneumoperitoneum 10/03/2024 Anemia [...] Daily Activity Raw Score: 13 ADL Inpatient [facility] G-Code Modifier: CL Plan Pt would benefit [...] of Care supervision is transferred to a [facility] Therapy Services Occupational Therapist. Goals and/or treatment plan was established in collaboration with patient/family/other representatives. Ro Sales MS, OTR/L [1] Past Medical History: Diagnosis Date Acute renal failure (ARF) ([facility]) 10/19/2019 Anemia 12/30/2021 Calcification of abdominal aorta ([facility]) 10/08/202309/[address] abd Diverticulosis 10/08/2023 ESRD on hemodialysis ([facility]) ([facility]) 10/26/2019 Hemodialysis patient ([facility]) ([facility]) HTN (hypertension) 12/01/2022 Hypertension IgA nephropathy 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 10/26/2019 Missed vaccination due to patient refusal 10/08/2023 Has a number of non-scientific based beliefs which interfere with his understanding and acceptance of the medical benefit of vaccination. Nonrheumatic aortic valve stenosis 10/08/2023 Paroxysmal A-fib ([facility]) ([facility]) 08/18/2023 Tobacco abuse 10/08/2023 [2] Past Surgical History: Procedure Laterality Date APPENDECTOMY CARDIAC CATHETERIZATION N/A 10/09/2024 Performed by Bob Watson MD at [facility] Cardiac Cath/EP Lab CARDIAC CATHETERIZATION Bilateral 11/01/2024 Performed by Bob Watson MD at [facility] Cardiac Cath/EP Lab CARDIAC CATHETERIZATION N/A 11/01/2024 Performed by Bob Watson MD at [facility] Cardiac Cath/EP Lab COLONOSCOPY N/A 01/24/2025 Performed by Chadd Davis MD at [facility] ENDOSCOPY FISTULAGRAM (HISTORICAL) Left 09/15/2021 LEFT UPPER ARM HX AV FISTULA CREATION IR EMBOLIZATION 10/14/2024 IR EMBOLIZATION 10/14/2024 [facility] SPECIAL PROCEDURES IR FISTULAGRAM 08/07/2022 IR FISTULAGRAM 08/07/2022 [facility] IR IMAGING TONSILLECTOMY (HISTORICAL) Hospitalist Progress Note [...] bilateral pleural effusions. 5. Cholelithiasis, and diminutive [place] kidneys. Seen by pulm service Started on [...] controlled No CP Adult diet Regular @IODETAILS@ @[id number]@ Medications: Continuous Meds[1] Scheduled Meds[2] Recent Labs [...] coumadin -- [facility]/OT Will ask surg about PEG remove per request-- out Anticipated Discharge - Date - 02/27 - Location - Skilled Facility - Pending the following - course Total time spent (which include face to face and non face to face encounters) : 46 minutes See orders, continue POC Advance Directive: Full Code Ramón Romano MD, [facility] Hospitalist [1] heparin, 5-30 Units/kg/hr, Last Rate: [...] any questions or concerns Bree Molina APRN WHITE SHOE RAGGER A-G MILITARY TECHNOLOGY SPECIALIST [facility] [phone] Pt seen and examined independently by me. I reviewed with, DENIA-SAMIA the medical history and the findings on physical examination. I discussed the patient s diagnosis and concur with the treatment plan as documented in his note. Please call [phone] or message me through [employer] with any questions or concerns. PULMONOLOGY CONSULT [...] from the original note were not included. [facility] Wound Care/NPWT Progress Note Jun Dodd Lillian AGE: 59 y.o. GENDER: male : 1965 [...] premedicated for pain with pain medication, per nursing staff development coordinator, prior to wound VAC dressing change. Wet [...] to follow Recommend to follow up at [facility] Outpatient wound care center after hospital discharge. Any questions or concerns please secure chat [facility] wound/ostomy. Thank you for the consult! I [...] History: Diagnosis Date Acute renal failure (ARF) ([facility]) 10/19/2019 Anemia 12/30/2021 Calcification of abdominal aorta ([facility]) 10/08/202309/[address] abd Diverticulosis 10/08/2023 ESRD on hemodialysis ([facility]) ([facility]) 10/26/2019 Hemodialysis patient ([facility]) ([facility]) HTN (hypertension) 12/01/2022 Hypertension IgA nephropathy 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 10/26/2019 Missed vaccination due to patient refusal 10/08/2023 Has a number of non-scientific based beliefs which interfere with his understanding and acceptance of the medical benefit of vaccination. Nonrheumatic aortic valve stenosis 10/08/2023 Paroxysmal A-fib ([facility]) ([facility]) 08/18/2023 Tobacco abuse 10/08/2023 [2] Past Surgical History: Procedure Laterality Date APPENDECTOMY CARDIAC CATHETERIZATION N/A 10/09/2024 Performed by Bbo Watson MD at [facility] Cardiac Cath/EP Lab CARDIAC CATHETERIZATION Bilateral 11/01/2024 Performed by Bob Watson MD at [facility] Cardiac Cath/EP Lab CARDIAC CATHETERIZATION N/A 11/01/2024 Performed by Bob Watson MD at [facility] Cardiac Cath/EP Lab COLONOSCOPY N/A 01/24/2025 Performed by Chadd Davis MD at [facility] ENDOSCOPY FISTULAGRAM (HISTORICAL) Left 09/15/2021 LEFT UPPER ARM HX AV FISTULA CREATION IR EMBOLIZATION 10/14/2024 IR EMBOLIZATION 10/14/2024 [facility] SPECIAL PROCEDURES IR FISTULAGRAM 08/07/2022 IR FISTULAGRAM [...] needed (PRN constipation). [DISCONTINUED] epoetin rowan-epbx (Retacrit) 96742 UNIT/ML injection Inject 0.79 mL (7,900 Units) under the skin 1 (one) time per week. (Patient not taking: Reported on 02/21/2025) [DISCONTINUED] pantoprazole (ProtoNix) 40 MG injection Infuse 40 mg into a venous catheter 2 times daily. Cosigned by Ahsan Gill DO at 02/26/2025 4:59 PM EDT [facility] Anticoagulation Management Service ([facility]) Inpatient Warfarin Consult HPI: Jun Snyder is a 59 y.o. male admitted on 02/20/2025 for Hemoptysis [R04.2]. Medical History[1] Patient is on warfarin for mechanical AVR and has a goal INR 2.0 - 3.0. Patient was referred to [facility], but so far has been managed at facilities, most recently [facility]. Pt's home dose of warfarin is 1.5mg [...] over when discharged from facility. [facility] Odonnell [facility] Service is available daily [phone] via [employer] Secure Chat. [1] Past Medical History: Diagnosis Date Acute renal failure (ARF) ([facility]) 10/19/2019 Anemia 12/30/2021 Calcification of abdominal aorta ([facility]) 10/08/202309/[address] abd Diverticulosis 10/08/2023 ESRD on hemodialysis ([facility]) ([facility]) 10/26/2019 Hemodialysis patient ([facility] ([facility]) HTN (hypertension) 12/01/2022 Hypertension IgA nephropathy 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 10/26/2019 Missed vaccination due to patient refusal 10/08/2023 Has a number of non-scientific based beliefs which interfere with his understanding and acceptance of the medical benefit of vaccination. Nonrheumatic aortic valve stenosis 10/08/2023 Paroxysmal A-fib (CMS/HCC) (HCC) 08/18/2023 Tobacco abuse 10/08/2023 Nephrology Progress Note [...] original note were not included. PHYSICAL THERAPY [facility] Initial Evaluation Name/MRN: Jair Snyder ([id number]) Evaluation Date: 02/25/2025 Date of : 1965 Admission Date: 02/20/2025 5:41 PM Age: 59 y.o. Room[facility]Bed: [facility] A Discharge Recommendation: Longterm Facility Equipment Needed: No Assessment IMPRESSION: Patient [...] Diagnosis Date Noted Hemoptysis 02/20/2025 Severe malnutrition ([facility]) ([facility]) 01/19/2025 Complication of tracheostomy ([facility]) ([facility]) 01/19/2025 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 01/12/2025 Acute respiratory failure with hypoxia ([facility]) [J96.01] 01/08/2025 Tracheostomy care ([facility]) [Z43.0] 01/08/2025 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[facility]) 01/08/2025 Sacral osteomyelitis ([facility]) ([facility]) 01/03/2025 Pneumonia of both lungs due to methicillin susceptible Staphylococcus aureus (MSSA) ([facility]) 01/01/2025 Leukocytosis 12/30/2024 Decubitus ulcer of sacral region, unstageable ([facility]) 12/30/2024 Peritonitis due to fungus ([facility]) 11/30/2024 History of abdominal surgery 11/30/2024 Leg DVT (deep venous thromboembolism), acute, left ([facility]) 11/30/2024 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, 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 of skin ([facility]) 11/30/2024 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[facility]) 11/30/2024 Pleural effusion 11/28/2024 Gastric ulceration 2024 Atrial flutter, unspecified type ([facility]) 10/03/2024 RSV (acute bronchiolitis due to respiratory syncytial virus) 10/03/2024 Diverticulosis 10/08/2023 Nonrheumatic aortic valve stenosis 10/08/2023 Calcification of abdominal aorta ([facility]) 10/08/2023 Missed vaccination due to patient refusal 10/08/2023 Tobacco abuse 10/08/2023 Alcohol use disorder in remission 10/08/2023 Paroxysmal A-fib ([facility]) ([facility]) 08/18/2023 HTN (hypertension) 12/01/2022 ESRD on hemodialysis ([facility]) ([facility]) 10/26/2019 IgA nephropathy determined by biopsy of [...] (No Stairs) : 15 JH-HLM -HLM Score: Transferred to chair/commode Plan Pt would [...] of Care supervision is transferred to a [facility] Therapy Services Physical Therapist. Goals and/or treatment plan was established in collaboration with patient/family/other representatives. [1] Past Medical History: Diagnosis Date Acute renal failure (ARF) (HCC) 10/19/2019 Anemia 12/30/2021 Calcification of abdominal aorta (HCC) 10/08/202309/[address] abd Diverticulosis 10/08/2023 ESRD on hemodialysis ([facility]) ([facility]) 10/26/2019 Hemodialysis patient ([facility]) ([facility]) HTN (hypertension) 12/01/2022 Hypertension IgA nephropathy 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 10/26/2019 Missed vaccination due to patient refusal 10/08/2023 Has a number of non-scientific based beliefs which interfere with his understanding and acceptance of the medical benefit of vaccination. Nonrheumatic aortic valve stenosis 10/08/2023 Paroxysmal A-fib ([facility]) ([facility]) 08/18/2023 Tobacco abuse 10/08/2023 [2] Past Surgical History: Procedure Laterality Date APPENDECTOMY CARDIAC CATHETERIZATION N/A 10/09/2024 Performed by Bob Watson MD at [facility] Cardiac Cath/EP Lab CARDIAC CATHETERIZATION Bilateral 11/01/2024 Performed by Bob Watson MD at [facility] Cardiac Cath/EP Lab CARDIAC CATHETERIZATION N/A 11/01/2024 Performed by Bob Watson MD at [facility] Cardiac Cath/EP Lab COLONOSCOPY N/A 01/24/2025 Performed by Chadd Davis MD at [facility] ENDOSCOPY FISTULAGRAM (HISTORICAL) Left 09/15/2021 LEFT UPPER ARM HX AV FISTULA CREATION IR EMBOLIZATION 10/14/2024 IR EMBOLIZATION 10/14/2024 [facility] SPECIAL PROCEDURES IR FISTULAGRAM 08/07/2022 IR FISTULAGRAM 08/07/2022 [facility] IR IMAGING TONSILLECTOMY (HISTORICAL) Hospitalist Progress Note [...] bilateral pleural effusions. 5. Cholelithiasis, and diminutive [place] kidneys. Seen by pulm service Started on IV abx Started on heparin gtt as well Interval History: pt feels ok Some dizziness at times No more bleeding issues 02/23 Pt awake Reports his PEG is uncomfortable-- wants removed if able No CP 02/24 Pt awake Some cough at times Sob better 02/25 Pt awake No sob today No CP Adult diet Regular @IODETAILS@ @[email or web address]@ Medications: Continuous Meds[1] Scheduled Meds[2] Recent Labs [...] Advance Directive: Full Code Ramón Romano MD, [facility] Hospitalist [1] heparin, 5-30 Units/kg/hr, Last Rate: 18 Units/kg/hr (02/26/25 0736) [2] B complex-vitamin C-folic acid, 1 capsule, Oral, Daily metoprolol tartrate, 25 mg, Oral, BID pantoprazole, 40 mg, Oral, qAM AC piperacillin-tazobactam, 4,500 mg, IntraVENous, q8h QUEtiapine, 25 mg, Oral, Nightly sevelamer carbonate, 800 mg, Oral, TID WC warfarin, 1.5 mg, Oral, Once [facility] Anticoagulation Management Service ([facility]) Inpatient Warfarin Consult HPI: Jun Snyder is a 59 y.o. male admitted on 02/20/2025 for Hemoptysis [R04.2]. Medical History[1] Patient is on warfarin for mechanical AVR and has a goal INR 2.0 - 3.0. Patient was referred to [facility], but so far has been managed at facilities, most recently [facility]. Pt's home dose of warfarin is 1.5mg [...] PharmD [facility] Consult Service is available daily [phone] via [employer] Secure Chat. [1] Past Medical History: Diagnosis Date Acute renal failure (ARF) (HCC) 10/19/2019 Anemia 12/30/2021 Calcification of abdominal aorta (HCC) 10/08/202309/[address] abd Diverticulosis 10/08/2023 ESRD on hemodialysis ([facility]) ([facility]) 10/26/2019 Hemodialysis patient ([facility]) ([facility]) HTN (hypertension) 12/01/2022 Hypertension IgA nephropathy 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 10/26/2019 Missed vaccination due to patient refusal 10/08/2023 Has a number of non-scientific based beliefs which interfere with his understanding and acceptance of the medical benefit of vaccination. Nonrheumatic aortic valve stenosis 10/08/2023 Paroxysmal A-fib ([facility]) ([facility]) 08/18/2023 Tobacco abuse 10/08/2023 Vancomycin therapy has been discontinued by Hussain Quintana on 02/24. Thank you for the consult. Pharmacy signing off for vancomycin dosing. Marissa Iglesias PharmD, Date: 02/24/25 Time: 4:08 PM Images from the original note were not included. [facility] - Infectious Diseases Attending Progress [...] necrotic Lines: sites clean Labs: Recent Labs 02/22/250 02/23/2531 NA 132* 135* K 3.4* 4.1 CL 94* 99 CO2 BUN 36* 21 CREATININE 3.99* 2.78* GLUCOSE 121* 110* CALCIUM 9.2 9.2 PROT 6.7 7.1 BILITOT 0.6 0.6 ALKPHOS 120 136 AST 35* 37* ALT 9 10 Recent Labs 02/22/25 0100 02/23/2531 WBC 9.0 8.6 HGB 7.8* 8.6* HCT [...] Data: Labs: Recent Labs 02/22/25 0100 02/23/25 0032 WBC 9.0 8.6 HGB 7.8* 8.6* HCT 24.5* 27.9* MCV 91.1 93.0 PLT 282 316 Recent Labs 02/22/25 0100 02/23/25 0032 NA 132* 135* K 3.4* 4.1 CL 94* 99 CO2 GLUCOSE 121* 110* CALCIUM 9.2 9.2 PHOS [...] bilateral pleural effusions. 5. Cholelithiasis, and diminutive [place] kidneys. Seen by pulm service Started on IV abx Started on heparin gtt as well Interval History: pt feels ok Some dizziness at times No more bleeding issues 02/23 Pt awake Reports his PEG is uncomfortable-- wants removed if able No CP 02/24 Pt awake Some cough at times Sob better Adult diet Regular @IODETAILS@ @[email or web address]@ Medications: Continuous Meds[1] Scheduled Meds[2] Recent Labs 02/22/259902/23/25 0032 WBC 9.0 8.6 HGB 7.8* 8.6* PLT 282 316 Recent Labs 02/22/259902/23/25 0032 NA 132* 135* K 3.4* 4.1 CL 94* 99 CO2 25 BUN 36* 21 CREATININE 3.99* 2.78* GLUCOSE 121* 110* Recent Labs 02/22/259902/23/2531 AST 35* 37* ALT 9 10 BILITOT 0.6 0.6 ALKPHOS 120 136 No results found for: TRIG, HDL, LDLCALC, CHOL Recent Labs 02/22/259902/23/253102/24/25 0010 INR 1.4* 1.3* 1.3* No results [...] - Date - 02/25 - Location - [facility] - Pending the following - course Total time spent (which include face to face and non face to face encounters) : 51 minutes See orders, continue POC Advance Directive: Full Code Ramón Romano MD, [facility] Hospitalist [1] heparin, 5-30 Units/kg/hr, Last Rate: 18 Units/kg/hr (02/24/25 0736) [2] B complex-vitamin C-folic acid, 1 capsule, Oral, Daily metoprolol tartrate, 25 mg, Oral, BID pantoprazole, 40 mg, Oral, qAM AC QUEtiapine, 25 mg, Per G Tube, Nightly sevelamer carbonate, 800 mg, Oral, TID WC vancomycin (Vancocin) intermittent dosing (placeholder), , Other, RX Placeholder [facility] Anticoagulation Management Service ([facility]) Inpatient Warfarin Consult HPI: Jun Snyder is a 59 y.o. male admitted on 02/20/2025 for Hemoptysis [R04.2]. Medical History[1] Patient is on warfarin for mechanical AVR and has a goal INR 2.0 - 3.0. Patient was referred to [facility], but so far has been managed at facilities, most recently [facility]. Pt's home dose of warfarin is 1.5mg [...] PharmD [facility] Consult Service is available daily [phone] via [employer] Secure Chat. [1] Past Medical History: Diagnosis Date Acute renal failure (ARF) ([facility]) 10/19/2019 Anemia 12/30/2021 Calcification of abdominal aorta ([facility]) 10/08/202309/[address] abd Diverticulosis 10/08/2023 ESRD on hemodialysis ([facility]) ([facility]) 10/26/2019 Hemodialysis patient ([facility]) ([facility]) HTN (hypertension) 12/01/2022 Hypertension IgA nephropathy 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 10/26/2019 Missed vaccination due to patient refusal 10/08/2023 Has a number of non-scientific based beliefs which interfere with his understanding and acceptance of the medical benefit of vaccination. Nonrheumatic aortic valve stenosis 10/08/2023 Paroxysmal A-fib ([facility]) ([facility]) 08/18/2023 Tobacco abuse 10/08/2023 Images from the original note were not included. [facility] - Infectious Diseases Attending Progress [...] necrotic Lines: sites clean Labs: Recent Labs 02/21/255202/22/250 02/23/25 003 NA 131* 132* 135* K 3.1* 3.4* 4.1 CL 91* 94* 99 CO2 25 BUN 29* 36* 21 CREATININE 2.89* 3.99* 2.78* GLUCOSE 74 121* 110* CALCIUM 9.3 9.2 9.2 PROT 6.8 6.7 7.1 BILITOT 0.8 0.6 0.6 ALKPHOS 120 120 136 AST 39* 35* 37* ALT 8 9 10 PROCAL 0.68* -- -- Recent Labs 02/21/255202/22/250 02/23/25 0032 WBC 7.0 9.0 8.6 HGB [...] the original note were not included. [facility] [place] [phone] PULMONARY PROGRESS NOTE. Patient - Jun Snyder, [...] alert. LABS and Studies: CBC: Recent Labs 02/21/255202/22/259902/23/2531 WBC 7.0 9.0 8.6 HGB 8.3* 7.8* 8.6* HCT 25.7* 24.5* 27.9* PLT 316 282 316 BMP: Recent Labs 02/21/255202/22/259902/23/2531 NA 131* 132* 135* K 3.1* 3.4* 4.1 CL 91* 94* 99 CO2 BUN 29* 36* 21 CREATININE 2.89* 3.99* 2.78* GLUCOSE 74 121* 110* CALCIUM 9.3 9.2 9.2 MG 2.2 2.2 2.0 PHOS 2.0* 3.2 2.6 HEPATIC: Recent Labs 02/21/255202/22/259902/23/2531 AST 39* 35* 37* ALT 8 9 10 BILITOT 0.8 0.6 0.6 ALKPHOS 120 120 136 LACTATE: No lab exists for component: LACTA PROCALCITONIN: Recent Labs 02/21/2552 PROCAL 0.68* TROPONIN: No results for input(s): TROPONINI in the last 72 hours. BNP: No results for input(s): BNP in the last 72 hours. INR: Recent Labs 02/20/25 1825 02/22/259902/23/2531 INR 1.4* 1.4* 1.3* BLOOD GAS: No [...] PM EDT I have personally performed a [id number] diagnostic evaluation on this patient on date of service 02/23/25. History, labs, imaging studies, and electronic medical record have been reviewed by me. This note documented by the [x]packing house laborer []ARMIN reflects my history, exam, and medical [...] weekend. Please reach out with any concerns [facility] Anticoagulation Management Service ([facility]) Inpatient Warfarin Consult HPI: Jun Snyder is a 59 y.o. male admitted on 02/20/2025 for Hemoptysis [R04.2]. Medical History[1] Patient is on warfarin for mechanical AVR and has a goal INR 2.0 - 3.0. Patient was referred to [facility], but so far has been managed at facilities, most recently [facility]. Pt's home dose of warfarin is 1.5mg [...] over when discharged from facility. Fatuma Odonnell RPh, PharmD [facility] Consult Service is available daily [phone] via [employer] Secure Chat. [1] Past Medical History: Diagnosis Date Acute renal failure (ARF) (HCC) 10/19/2019 Anemia 12/30/2021 Calcification of abdominal aorta (HCC) 10/08/202309/[address] abd Diverticulosis 10/08/2023 ESRD on hemodialysis ([facility]) ([facility]) 10/26/2019 Hemodialysis patient ([facility]) ([facility]) HTN (hypertension) 12/01/2022 Hypertension IgA nephropathy 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 10/26/2019 Missed vaccination due to patient refusal 10/08/2023 Has a number of non-scientific based beliefs which interfere with his understanding and acceptance of the medical benefit of vaccination. Nonrheumatic aortic valve stenosis 10/08/2023 Paroxysmal A-fib ([facility]) ([facility]) 08/18/2023 Tobacco abuse 10/08/2023 Hospitalist Progress Note [...] bilateral pleural effusions. 5. Cholelithiasis, and diminutive [place] kidneys. Seen by pulm service Started on IV abx Started on heparin gtt as well Interval History: pt feels ok Some dizziness at times No more bleeding issues 02/23 Pt awake Reports his PEG is uncomfortable-- wants removed if able No CP Adult diet Regular @IODETAILS@ @[email or web address]@ Medications: Continuous Meds[1] Scheduled Meds[2] Recent Labs 02/21/255202/22/25 0100 02/23/25 0032 WBC 7.0 9.0 8.6 HGB 8.3* 7.8* 8.6* PLT 316 282 316 Recent Labs 02/21/255202/22/25 0100 02/23/25 0032 NA 131* 132* 135* K 3.1* 3.4* 4.1 CL 91* 94* 99 CO2 BUN 29* 36* 21 CREATININE 2.89* 3.99* 2.78* GLUCOSE 74 121* 110* Recent Labs 02/21/255202/22/25 0100 02/23/25 0032 AST 39* 35* 37* ALT 8 9 10 BILITOT 0.8 0.6 0.6 ALKPHOS 120 120 136 No results found for: TRIG, HDL, LDLCALC, CHOL Recent Labs 02/20/25 1825 02/22/25 0100 02/23/25 0032 INR 1.4* 1.4* 1.3* No results for [...] Advance Directive: Full Code Ramón Romano MD, [facility] Hospitalist [1] heparin, 5-30 Units/kg/hr, Last Rate: 18 Units/kg/hr (02/23/25 0718) [2] B complex-vitamin C-folic acid, 1 capsule, Oral, Daily metoprolol tartrate, 25 mg, Oral, BID pantoprazole, 40 mg, Oral, qAM AC QUEtiapine, 25 mg, Per G Tube, Nightly sevelamer carbonate, 800 mg, Oral, TID WC vancomycin (Vancocin) intermittent dosing (placeholder), , Other, RX Placeholder Images from the original note were not included. [facility] Wound Care/NPWT Progress Note Jun Snyder AGE: [...] for pain with PO pain medication, per nursing staff development coordinator, prior to wound VAC dressing change. Wet [...] apply Betadine and allow to dry, leave CHANGEOVER OPERATOR daily and PRN Right wrist Abrasion: -cleanse [...] to follow Recommend to follow up at [facility] Outpatient wound care center after hospital discharge. [...] History: Diagnosis Date Acute renal failure (ARF) ([facility]) 10/19/2019 Anemia 12/30/2021 Calcification of abdominal aorta ([facility]) 10/08/202309/[address] abd Diverticulosis 10/08/2023 ESRD on hemodialysis ([facility] ([facility]) 10/26/2019 Hemodialysis patient ([facility]) ([facility]) HTN (hypertension) 12/01/2022 Hypertension IgA nephropathy 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 10/26/2019 Missed vaccination due to patient refusal 10/08/2023 Has a number of non-scientific based beliefs which interfere with his understanding and acceptance of the medical benefit of vaccination. Nonrheumatic aortic valve stenosis 10/08/2023 Paroxysmal A-fib ([facility]) ([facility]) 08/18/2023 Tobacco abuse 10/08/2023 [2] Past Surgical History: Procedure Laterality Date APPENDECTOMY CARDIAC CATHETERIZATION N/A 10/09/2024 Performed by Bob Watson MD at [facility] Cardiac Cath/EP Lab CARDIAC CATHETERIZATION Bilateral 11/01/2024 Performed by Bob Watson MD at [facility] Cardiac Cath/EP Lab CARDIAC CATHETERIZATION N/A 11/01/2024 Performed by Bob Watson MD at [facility] Cardiac Cath/EP Lab COLONOSCOPY N/A 01/24/2025 Performed by Chadd Davis MD at [facility] ENDOSCOPY FISTULAGRAM (HISTORICAL) Left 09/15/2021 LEFT UPPER ARM HX AV FISTULA CREATION IR EMBOLIZATION 10/14/2024 IR EMBOLIZATION 10/14/2024 [facility] SPECIAL PROCEDURES IR FISTULAGRAM 08/07/2022 IR FISTULAGRAM [...] needed (PRN constipation). [DISCONTINUED] epoetin rowan-epbx (Retacrit) 03960 UNIT/ML injection Inject 0.79 mL (7,900 Units) [...] lower extremity edema Data: Labs: Recent Labs 02/21/25 0053 02/22/25 0100 02/23/25 0032 WBC 7.0 9.0 8.6 HGB 8.3* 7.8* 8.6* HCT 25.7* 24.5* 27.9* MCV 89.9 91.1 93.0 PLT 316 282 316 Recent Labs 02/21/25 0053 02/22/25 0100 02/23/25 0032 NA 131* 132* 135* K 3.1* 3.4* 4.1 CL 91* 94* 99 CO2 GLUCOSE 74 121* 110* CALCIUM 9.3 9.2 [...] any questions or concerns Bree Molina APRN WHITE SHOE RAGGER A-G MILITARY TECHNOLOGY SPECIALIST [facility] [phone] Pt seen and examined independently by me. I reviewed with LOG HANDLING EQUIPMENT OPERATOR-WHITE SHOE RAGGER the medical history and the findings on physical examination. I discussed the patient s diagnosis and concur with the treatment plan as documented in his note. Please call [phone] or message me through [employer] with any questions or concerns. Pharmacy Managed [...] [] CrCl ml/min (Cockcroft-Gault, if BLOSSOM, no SALES AND MARKETING ENGINEER) Infectious Diagnosis: Pneumonia (target level = 15-20 [...] 4:36 PM Daryn Nolasco PharmD (available on [employer]) Images from the original note were not included. [facility] [phone] PULMONARY PROGRESS NOTE. Patient - Jun Snyder, [...] alert. LABS and Studies: CBC: Recent Labs 02/20/25182402/21/255202/22/25 010 WBC 9.4 7.0 9.0 HGB 8.7* 8.3* 7.8* HCT 26.8* 25.7* 24.5* PLT 312 316 282 BMP: Recent Labs 02/20/25182402/21/253 02/22/25 0100 NA 133* 131* 132* K 3.1* 3.1* 3.4* CL 92* 91* 94* CO2 BUN 29* 29* 36* CREATININE 2.57* 2.89* 3.99* GLUCOSE 80 74 121* CALCIUM 9.6 9.3 9.2 MG -- 2.2 2.2 PHOS -- 2.0* 3.2 HEPATIC: Recent Labs 02/21/253 02/22/25 0100 AST 39* 35* ALT 8 9 BILITOT 0.8 0.6 ALKPHOS 120 120 LACTATE: No lab exists for component: LACTA PROCALCITONIN: Recent Labs 02/21/25 0053 PROCAL 0.68* TROPONIN: No results for input(s): TROPONINI in the last 72 hours. BNP: No results for input(s): BNP in the last 72 hours. INR: Recent Labs 02/20/25 1825 02/22/25 0100 INR 1.4* 1.4* BLOOD GAS: No results [...] PM EDT I have personally performed a [id number] diagnostic evaluation on this patient on date of service 02/22/2025. History, labs, imaging studies, and electronic medical record have been reviewed by me. This note documented by the [x]packing house laborer []ARMIN reflects my history, exam, and medical [...] bilateral pleural effusions. 5. Cholelithiasis, and diminutive [place] kidneys. Seen by pulm service Started on IV abx Started on heparin gtt as well Interval History: pt feels ok Some dizziness at times No more bleeding issues Adult diet Regular @IODETAILS@ @[email or web address]@ Medications: Continuous Meds[1] Scheduled Meds[2] Recent Labs 02/20/25182402/21/255202/22/25 0100 WBC 9.4 7.0 9.0 HGB 8.7* 8.3* 7.8* PLT 312 316 282 Recent Labs 02/20/25182402/21/255202/22/25 0100 NA 133* 131* [...] Advance Directive: Full Code Ramón Romano MD, [facility] Hospitalist [1] heparin, 5-30 Units/kg/hr, Last Rate: [...] original note were not included. OCCUPATIONAL THERAPY [facility] Name/MRN: Jair Snyder ([id number]) Date: 02/22/2025 PT refusing to participate in therapy this AM, will continue to follow and re approach for OT morales. Ro Farnsworth OT Nephrology Progress Note Following [...] lower extremity edema Data: Labs: Recent Labs 02/20/25182402/21/25 0053 02/22/25 0100 WBC 9.4 7.0 9.0 HGB 8.7* 8.3* 7.8* HCT 26.8* 25.7* 24.5* MCV 88.4 89.9 91.1 PLT 312 316 282 Recent Labs 02/20/25182402/21/25 0053 02/22/25 0100 NA 133* 131* 132* K 3.1* 3.1* 3.4* CL 92* 91* 94* CO2 GLUCOSE 80 74 121* CALCIUM 9.6 9.3 [...] any questions or concerns Bree Molina APRN WHITE SHOE RAGGER A-G MILITARY TECHNOLOGY SPECIALIST [facility] [phone] Pt seen and examined independently by me. I reviewed with LOG HANDLING EQUIPMENT OPERATOR-WHITE SHOE RAGGER the medical history and the findings on physical examination. I discussed the patient s diagnosis and concur with the treatment plan as documented in his note. Please call [phone] or message me through [employer] with any questions or concerns. Images from the original note were not included. PHYSICAL THERAPY [facility] Name/MRN: Jair Snyder ([id number]) Date: 02/22/2025 Pt declined to work with therapy at this time, stating he wants to wait until after the wound vac is put on. Will reattempt at a later date. Sangeeta Sarabia PT Images from the original note were not included. PHYSICAL THERAPY [facility] Name/MRN: Jair Snyder ([id number]) Date: 02/21/2025 Pt declined to work with [...] Time 17 min documented in this encounter [facility] 03-05-2025 Miscellaneous Notes Formattin g of this note might be different from the original. Auth is now pending with [facility] for [facility]. Auth ID: [id number] . The insurance needs PT and OT notes- as PT note yesterday incomplete , they are both requested . Confirmed pickup time of 4:00pm on 03/05/25 by transport [employer] at phone number [phone]. Location of facility drop off is [facility]. Facility notified via Careport, [facility] notified on secure chat. Discharge med list transmitted to [facility] via Careport per TCC request. [facility] requested transport to be set up at 4 PM to permit auth to be ongoing- facility can accept- just requested it be started today - windows desktop support notified, and discharge orders faxed, will confirm in secure chat the time and notify the tx team , orders in [facility] , rosendo done, return to [facility] . [facility] requested OT notes this am - for ongoing auth - PT INR is now good 1.8 , notified facility want to send today , auth was only good thru 03/02 notified DRAINAGE ENGINEER to confirm about auth requirements again today .. Transport in will call, wound VAC to go with patient, discharge orders in [facility] , LIVES at facility LTC - the facility wants to skill- [facility] is working with them to have him discharge later today - transport in will call . Lean Six Sigma Senior Specialist notified to send orders and med rec to [facility] Problem: Knowledge Deficit Goal: Patient/family/caregiver demonstrates understanding [...] Note DC plan is return to ECF/SNF- [facility], no auth needed to return however facility [...] Progress Note 03/03/25 1025 Rapid Rounds Attendance Wrecking Crane Engine Operator Planned Discharge Disposition Prison ([facility]- return, is LTC no AUTH needed) Today we still await Other (INR >or = 1.8 per SAILAJA) Clinical stability Attending completion of discharge workflow Additional Comments: We have a skilled AUTH that expires midnight tonight, however facility will still accept without AUTH per previous CM notes This Wrecking Crane Engine Operator was tasked to follow this patient through the weekend. Chart and Careport were reviewed. INR this am is 1.6, subtherapeutic. Facility updated. Transportation is in will call. marketing support manager will continue to follow for transitional care [...] med list and updated notes transmitted to [facility] per TCC request. Per epic [...] 1.8 - and need labs post at [facility] to follow . Lean Six Sigma Senior Specialist tasked to send wound vac and clinicals- requested PT/OT notes for ongoing auth . Rosendo done- transport in will call to return to [facility] where he lives facility did want to [...] Roundtrip in will call per TCC. Tasked DRAINAGE ENGINEER to set up transport in will call, [...] Need updated therapy to start auth for [facility]. Continues on IV antibiotics. On a heparin gtt. SMS following to change to Coumadin. INR 13 today. Plan is to return to [facility]. . Length of Stay (Days): 7 [...] therapy notes. Want to skill him at [facility]. Started on IV antibiotics for aspiration pneumonia. Continues on a heparin gtt. . Updated notes [facility] request. Await review and response regarding ability [...] pressure injuries/wounds this shift so RN [facility] would prefer to SKILL patient- LTC. + [...] Interventions Goal: Promote nutritional intake Outcome: Progressing [facility] would prefer to SKILL patient- LTC. + bedhold will return - has woundVAC and ivab on hep gtt, not ready for discharge , windows desktop support tasked to send clinicals facility is updated . Updated notes sent to [facility] via Careport per TCC request. Await review [...] intake Outcome: Not Progressing Has dialysis at facility, [facility].. Pt came to ER from dialysis due to hemoptysis. Had a trach removed 01/19. He is a bed hold at [facility]. They would like to skill him if able. Unable to tell me where he went to dialysis this am, asking facility. [facility] request. Await review and response regarding ability to accept. [facility] notified. I have discussed with the patient [...] of blood components. documented in this encounter [facility] 03-05-2025 Note [facility] 03-05-2025 Hospital course Narrative Images from the original note were not included. Hospitalist Discharge Summary - [facility] ([facility]) Jun Snyder : 1965 Admit date: 02/20/2025 Discharge date: 03/05/2025 Admitting Physician: Bettye Pierre MD Primary Care Physician: Leilani Troncoso Recommended Follow-up: [facility]ound Ostomy [address] [facility] [address] [place] [facility] [address] [place] [address] [facility] [address] Call Call and schedule appointment in [...] CHOL No results found for: PHART, PO2ART, IEG6EHV Recent Labs 03/04/25 0156 03/04/25 0946 03/05/25 0343 INR 1.5* 1.6* 1.8* No results for input(s): DDIMER in the last 72 hours. No results found for: HGBA1C No results found for: TSH Urine Culture: No results found for this or any previous visit. Imaging: CTA chest angiogram w and/or wo IV contrast Result Date: 02/20/2025 [facility] 1965 [id number] Exam Date/Time: 02/20/2025 19:01 Procedure: CT CHEST [...] bilateral pleural effusions. 5. Cholelithiasis, and diminutive [place] [facility]. Report Dictated on Electronically Signed By: [...] Your Medications These medications were sent to [facility] [address] [place], [place] [id number] metoprolol tartrate 25 MG tablet pantoprazole 40 MG EC tablet QUEtiapine 25 MG tablet sevelamer carbonate 800 MG tablet You can get these medications from any pharmacy Bring a paper prescription for each of these medications oxyCODONE 5 MG immediate release tablet Signed: Anthony Hurtado DO 03/05/2025, 9:30 AM documented in this encounter [facility] 03-03-2025 Nurse Note Patient Name: Jun Snyder Patient : 1965 Acct: [id number] Date of Admission: 02/20/2025 Room[facility] A Code Status: Full Code Allergies: [...] BUN 26 (H) 03/03/2025211 CREATININE 3.21 (H) 03/03/2025211 CREATININE 9.99 (H) 10/27/2019 05 CALCIUM 9.8 03/03/2025211 PHOS 2.6 02/23/202531 IV Drips and Rate/Dose Continuous Meds[3] Safety - Before each treatment: Dialysis Machine No.: [id number] RO Machine Number: [id number] Dialyzer Lot No.: [id number] Tubing Lot Number: [id number] All Connections Secure: Yes Venous Parameters Set: Yes Arterial Parameters Set: Yes NS Bag: Yes Saline Line Double Clamped: Yes Dialyzer: Nipro Prime Volume (mL): 200 mL RO Machine Number: [id number] RO Machine Log Sheet Completed: Yes Machine Alarm Self Test: Completed, Passed (03/03/25739) Air Foam Detector: Tested, Proper Function, pH Reading Extracorporeal Circuit Tested for Integrity: Yes Machine Conductivity: 13.7 Manual Conductivity: 13.6 Manual Ph: 7 Bleach Test (Neg): Yes Bath Temperature: 36 C (96.8 F) Conductivity Meter Serial #: [id number] Machine Functioning Alarm Free? Yes Dialysis Bath: K+ (Potassium): 2 Ca+ (Calcium): 2.5 Na+ (Sodium): 137 HCO3 (Bicarb): 35 Bicarbonate Concentrate Lot No.: [id number] Acid Concentrate Lot No.: [id number] Chlorine Testing - Before each treatment and [...] mmHg 80 600 Yes pt sleeping, removed 214303/03/25 1230 350 mL/min 51530 ml/hr -70 mmHg 170 mmHg 80 600 [...] Active Problem List Diagnosis Anemia Paroxysmal A-fib ([facility]) ([facility]) HTN (hypertension) ESRD on hemodialysis ([facility]) ([facility]) 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 Diverticulosis Nonrheumatic aortic valve stenosis Calcification of abdominal aorta ([facility]) Missed vaccination due to patient refusal Tobacco abuse Alcohol use disorder in remission Atrial flutter, unspecified type ([facility]) RSV (acute bronchiolitis due to respiratory syncytial [...] (CMS/HCC) (HCC) Acute respiratory failure with hypoxia ([facility]) [J96.01] Tracheostomy care ([facility]) [Z43.0] 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[facility]) 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 Complication of tracheostomy (CMS/HCC) ([facility]) BRBPR (bright red blood per rectum) Hemoptysis [3] heparin, 5-30 Units/kg/hr, Last Rate: 20 Units/kg/hr (03/03/25706) In patient's chart, d/t patient being on his call light excessively and finally telling me he wants something for pain. Please see eMAR for administration Patient Name: Jun Snyder Patient : 1965 Acct: [id number] Date of Admission: 02/20/2025 Room[facility]: [facility] A Code Status: Full Code Allergies: [...] 0828. Report Received from Primary RN at 07. Primary RN (First Initial, Last Name, Title): [...] Edema LUE Edema RLE Edema LLE Edema 03/01/2515 -- -- -- Clear Ecchymosis Warm;Dry Soft;Flat;Nondistended;Other [...] - Before each treatment: Dialysis Machine No.: [id number] RO Machine Number: [id number] Dialyzer Lot No.: [id number] Tubing Lot Number: [id number] All Connections Secure: Yes Venous Parameters Set: Yes Arterial Parameters Set: Yes NS Bag: Yes Saline Line Double Clamped: Yes Dialyzer: Nipro Prime Volume (mL): 200 mL RO Machine Number: [id number] RO Machine Log Sheet Completed: Yes Machine Alarm Self Test: Completed, Passed (03/01/25 07) Air Foam Detector: Tested, Proper Function, pH Reading Extracorporeal Circuit Tested for Integrity: Yes Machine Conductivity: 13.6 Manual Conductivity: 13.5 Manual Ph: 7.2 Bleach Test (Neg): Yes Bath Temperature: 36 C (96.8 F) Conductivity Meter Serial #: [id number] Machine Functioning Alarm Free? Yes Dialysis Bath: K+ (Potassium): 3 Ca+ (Calcium): 2.5 Na+ (Sodium): 137 HCO3 (Bicarb): 35 Bicarbonate Concentrate Lot No.: [id number] Acid Concentrate Lot No.: [id number] Chlorine Testing - Before each treatment and [...] (mmHg) TMP DFR Access Visible Intra-Hemodialysis Comments 03/01/25824 -- -- -- -- -- -- Yes [...] mmHg 70 600 Yes pt nresting, removed 1648 03/01/25 1045 350 mL/min 840 ml/hr -120 mmHg [...] Active Problem List Diagnosis Anemia Paroxysmal A-fib ([facility]) ([facility]) HTN (hypertension) ESRD on hemodialysis ([facility]) ([facility]) 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 Diverticulosis Nonrheumatic aortic valve stenosis Calcification of abdominal aorta ([facility]) Missed vaccination due to patient refusal Tobacco abuse Alcohol use disorder in remission Atrial flutter, unspecified type ([facility]) RSV (acute bronchiolitis due to respiratory syncytial virus) Aortic stenosis Upper GI bleed S/P AVR Acute hypoxic respiratory failure ([facility]) Acute encephalopathy Pneumoperitoneum Gastric ulceration Severe malnutrition ([facility]) ([facility]) Pleural effusion Peritonitis due to fungus ([facility]) History of abdominal surgery Leg DVT (deep venous thromboembolism), acute, left ([facility]) 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, 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 of skin ([facility]) 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[facility]) Leukocytosis Decubitus ulcer of sacral region, unstageable ([facility]) Pneumonia of both lungs due to methicillin susceptible Staphylococcus aureus (MSSA) ([facility]) Sacral osteomyelitis ([facility]) ([facility]) Acute respiratory failure with hypoxia ([facility]) [J96.01] Tracheostomy care ([facility]) [Z43.0] 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[facility]) 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 Complication of tracheostomy ([facility]/HCC) (HCC) BRBPR (bright red blood per rectum) [...] the room, and the patients agitation. Nurse technology program manager notified maintenance of the problem, and also [...] nurses aides cannot leave the floor to pick pulling machine operator his packages, and pt was agreeable to this as well. Patient Name: Jun Snyder Patient : 1965 Acct: [id number] Date of Admission: 02/20/2025 Room[facility]: [facility] A Code Status: Full Code Allergies: [...] 0805. Report Received from Primary RN at 0735. Primary RN (First Initial, Last Name, Title): [...] (0) 3 Regular None (Room air) Clear [place] Warm;Dry;No swelling Soft Active 02/27/25 1202 Alert (0) 3 Regular None (Room air) Clear [place] Warm Soft -- 02/27/25 1240 -- -- -- -- Diminished Ecchymosis -- -- -- Labs Lab Results Component Value Date/Time WBC 7.9 02/27/2025 0010 HGB 8.6 (L) 02/27/2025 0010 HGB 9.4 11/11/2024 0230 HCT 28.8 (L) 02/27/2025 0010 PLT 302 02/27/2025 0010 NA 135 (L) 02/23/2025 0032 K 4.1 02/23/2025 0032 CL 99 02/23/2025 0032 CO2 25 02/23/202531 BUN 21 02/23/202531 CREATININE 2.78 (H) 02/23/202531 CREATININE 9.99 (H) 10/27/2019544 CALCIUM 9.2 02/23/202531 PHOS 2.6 02/23/202531 IV Drips and Rate/Dose Continuous Meds[3] Safety - Before each treatment: Dialysis Machine No.: [id number] RO Machine Number: [id number] Dialyzer Lot No.: [id number] Tubing Lot Number: [id number] All Connections Secure: Yes Venous Parameters Set: Yes Arterial Parameters Set: Yes NS Bag: Yes Saline Line Double Clamped: Yes Dialyzer: Nipro Prime Volume (mL): 200 mL RO Machine Number: [id number] RO Machine Log Sheet Completed: Yes Machine Alarm Self Test: Completed, Passed (02/27/25744) Air Foam Detector: Tested, Proper Function, pH Reading Extracorporeal Circuit Tested for Integrity: Yes Machine Conductivity: 13.7 Manual Conductivity: 143.6 Manual Ph: 7 Bleach Test (Neg): Yes Bath Temperature: 36 C (96.8 F) Conductivity Meter Serial #: [id number] Machine Functioning Alarm Free? Yes Dialysis Bath: K+ (Potassium): 3 Ca+ (Calcium): 2.5 Na+ (Sodium): 137 HCO3 (Bicarb): 35 Bicarbonate Concentrate Lot No.: [id number] Acid Concentrate Lot No.: [id number] Chlorine Testing - Before each treatment and [...] TMP DFR Access Visible Intra-Hemodialysis Comments 02/27/25 08 200 mL/min 830 ml/hr 10 mmHg 0 [...] Active Problem List Diagnosis Anemia Paroxysmal A-fib ([facility]) ([facility]) HTN (hypertension) ESRD on hemodialysis ([facility]) ([facility]) 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 Diverticulosis Nonrheumatic aortic valve stenosis Calcification of abdominal aorta ([facility]) Missed vaccination due to patient refusal Tobacco abuse Alcohol use disorder in remission Atrial flutter, unspecified type ([facility]) RSV (acute bronchiolitis due to respiratory syncytial virus) Aortic stenosis Upper GI bleed S/P AVR Acute hypoxic respiratory failure ([facility]) Acute encephalopathy Pneumoperitoneum Gastric ulceration Severe malnutrition ([facility]) ([facility]) Pleural effusion Peritonitis due to fungus ([facility]) History of abdominal surgery Leg DVT (deep venous thromboembolism), acute, left ([facility]) 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, 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 of skin ([facility]) 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[facility]) Leukocytosis Decubitus ulcer of sacral region, unstageable ([facility]) Pneumonia of both lungs due to methicillin susceptible Staphylococcus aureus (MSSA) ([facility]) Sacral osteomyelitis ([facility]) ([facility]) Acute respiratory failure with hypoxia ([facility]) [J96.01] Tracheostomy care ([facility]) [Z43.0] 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HCC) 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 Complication of tracheostomy [...] and will see if the day shift legal administrative secretary can put a request in. 2322- Notified Dr. Hathaway of patient complaint of SOB and worsening chest pain that he described as dull and tight. Vitals WDL. STAT EKG ordered, patient given Nitrostat, and troponin sent down. 2330- Notified SALES AND MARKETING ENGINEER to assess the patient. Patient Name: Jun Snyder Patient : 1965 Acct: [id number] Date of Admission: 02/20/2025 Room[facility]: [facility] A Code Status: Full Code Allergies: [...] Lab Results Component Value Date/Time WBC 8.6 02/23/20252 HGB 8.6 (L) 02/23/2025 003 HGB 9.4 11/11/2024 0230 HCT 27.9 (L) 02/23/202531 PLT 316 02/23/2025 003 NA 135 (L) 02/23/202531 K 4.1 02/23/202531 CL 99 02/23/202531 CO2 25 02/23/202531 BUN 21 02/23/202531 CREATININE 2.78 (H) 02/23/202531 CREATININE 9.99 (H) 10/27/2019 05 CALCIUM 9.2 02/23/202531 PHOS 2.6 02/23/202531 IV Drips and Rate/Dose Continuous Meds[3] Safety - Before each treatment: Dialysis Machine No.: [id number] RO Machine Number: [id number] Dialyzer Lot No.: [id number] Tubing Lot Number: [id number] All Connections Secure: Yes Venous Parameters Set: Yes Arterial Parameters Set: Yes NS Bag: Yes Saline Line Double Clamped: Yes Dialyzer: Nipro Prime Volume (mL): 200 mL RO Machine Number: [id number] RO Machine Log Sheet Completed: Yes Machine Alarm Self Test: Completed, Passed (02/24/25809) Air Foam Detector: Tested, Proper Function, pH Reading Extracorporeal Circuit Tested for Integrity: Yes Machine Conductivity: 13.7 Manual Conductivity: 13.7 Manual Ph: 7 Bleach Test (Neg): Yes Bath Temperature: 36 C (96.8 F) Conductivity Meter Serial #: [id number] Machine Functioning Alarm Free? Yes Dialysis Bath: K+ (Potassium): 3 Ca+ (Calcium): 2.5 Na+ (Sodium): 137 HCO3 (Bicarb): 35 Bicarbonate Concentrate Lot No.: [id number] Acid Concentrate Lot No.: [id number] Chlorine Testing - Before each treatment and every 4 hours: Time On: 3 Time Off: 1412 Treatment Goal: 2L Weight Height: 177.8 cm (5' 10) (02/23/251412) Weight: 60.8 kg (134 lb) (02/23/251412) BMI [...] Yes pt aware of call light within [facility] and educated on use of call light [...] feed based on dietary recommendations) Provider Name: [facility] Provider Role: Hospitalist Method of Communication: Secure [...] Active Problem List Diagnosis Anemia Paroxysmal A-fib ([facility]) ([facility]) HTN (hypertension) ESRD on hemodialysis ([facility]) ([facility]) 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 Diverticulosis Nonrheumatic aortic valve stenosis Calcification of abdominal aorta ([facility]) Missed vaccination due to patient refusal Tobacco abuse Alcohol use disorder in remission Atrial flutter, unspecified type ([facility]) RSV (acute bronchiolitis due to respiratory syncytial virus) Aortic stenosis Upper GI bleed S/P AVR Acute hypoxic respiratory failure (HCC) Acute encephalopathy Pneumoperitoneum Gastric ulceration Severe malnutrition ([facility]) ([facility]) Pleural effusion Peritonitis due to fungus ([facility]) History of abdominal surgery Leg DVT (deep venous thromboembolism), acute, left (HCC) 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, 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) 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HCC) Leukocytosis Decubitus ulcer of sacral region, unstageable (HCC) Pneumonia of both lungs due to methicillin susceptible Staphylococcus aureus (MSSA) (HCC) Sacral osteomyelitis (CMS/HCC) (HCC) Acute respiratory failure with hypoxia (HCC) [J96.01] Tracheostomy care ([facility]) [Z43.0] 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HCC) longterm (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 Complication of tracheostomy (CMS/HCC) (HCC) BRBPR (bright red blood per rectum) Hemoptysis [3] heparin, 5-30 Units/kg/hr, Last Rate: 18 Units/kg/hr (02/24/25 1601) Patient continuing to order packages when he was instructed not to, multiple times, while at the hospital. Dispatch called [employer] and said a package came to the mailing clerk but they will not have access to retreive until Wednesday morning. It is locked over the weekend. Wound Care consulted for Pressure Injury Prevention. Pt's Kee score= 13 on 02/23 Pt's pressure points assessed. Pt's Right Heel, Elbows, Occiput and ears all intact. Pt currently followed by Wound MILITARY TECHNOLOGY SPECIALIST group for wounds to left toes, left plantar heel, right wrist, and sacrum with wound vac. For left toes, left heel, right wrist, and sacral wound assessments and treatment plan, please see Wound/Ostomy MILITARY TECHNOLOGY SPECIALIST progress notes. Lefors sheet noted at bedside and not on [...] Name: Jun Snyder Patient : 1965 Acct: [id number] Date of Admission: 02/20/2025 Room[facility]Bed: [facility] A Code Status: Full Code Allergies: [...] Lab Results Component Value Date/Time WBC 9.0 02/22/202599 HGB 7.8 (L) 02/22/202599 HGB 9.4 11/11/2024 0230 HCT 24.5 (L) 02/22/202599 PLT 282 02/22/202599 NA 132 (L) 02/22/202599 K 3.4 (L) 02/22/202599 CL 94 (L) 02/22/202599 CO2 25 02/22/202599 BUN 36 (H) 02/22/202599 CREATININE 3.99 (H) 02/22/2025 0100 CREATININE 9.99 (H) 10/27/2019 0545 CALCIUM 9.2 02/22/202599 PHOS 3.2 02/22/202599 IV Drips and Rate/Dose Continuous Meds[3] Safety - Before each treatment: Dialysis Machine No.: [id number] RO Machine Number: [id number] Dialyzer Lot No.: [id number] Tubing Lot Number: [id number] All Connections Secure: Yes Venous Parameters Set: Yes Arterial Parameters Set: Yes NS Bag: Yes Saline Line Double Clamped: Yes Dialyzer: Nipro Prime Volume (mL): 200 mL RO Machine Number: [id number] RO Machine Log Sheet Completed: Yes Machine Alarm Self Test: Completed, Passed (test passed at 0938) (02/22/25 0940) Air Foam Detector: Tested, Proper Function, pH Reading Extracorporeal Circuit Tested for Integrity: Yes Machine Conductivity: 13.7 Manual Conductivity: 13.8 Manual Ph: 7 Bleach Test (Neg): Yes (water check negative at 1215) Bath Temperature: 36 C (96.8 F) Conductivity Meter Serial #: [id number] Machine Functioning Alarm Free? Yes Dialysis Bath: K+ (Potassium): 3 Ca+ (Calcium): 2 Na+ (Sodium): 137 HCO3 (Bicarb): 35 Bicarbonate Concentrate Lot No.: [id number] Acid Concentrate Lot No.: [id number] Chlorine Testing - Before each treatment and [...] 120 mmHg 90 600 Yes Brigitte Molina MILITARY TECHNOLOGY SPECIALIST at bedside, no voiced complaints. fluid removal [...] feed based on dietary recommendations) Provider Name: [facility] Provider Role: Hospitalist Method of Communication: Secure [...] Active Problem List Diagnosis Anemia Paroxysmal A-fib ([facility]) (HCC) HTN (hypertension) ESRD on hemodialysis ([facility]) ([facility]) 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 [...] failure with hypoxia (HCC) [J96.01] Tracheostomy care ([facility]) [Z43.0] 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HCC) 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 Complication of tracheostomy [...] request. This RN spoke with RN at [facility] to verify medications that pt is taking. Pt arrived to hospital with wound vac on coccyx. Pt declined pictures to be taken of wound for charting. Pt states wound is being cared for by [facility] facility. Pt also mentioned that his Left [...] you. Pt arrived on floor via [facility] documented in this encounter [facility] 02-26-2025 Telephone encount er Note Called spoke with a nurse at the home he lives at. She declined to schedule any appointments at this time because they don't know when patient will be discharged. She said to call back once he is out the hospital. There is no other number to contact patient directly [facility] 02-26-2025 Miscellaneous Notes Formattin g of this [...] this? Thank you documented in this encounter [facility] 02-23-2025 Telephone encount er Note Called LM to call back and schedule CT and hospital follow up with any ARMIN [facility] 02-23-2025 Miscellaneous Notes Formattin g of this note might be different from the original. Called LM to call back and schedule CT and hospital follow up with any ARMIN Antonio, can we please schedule a 6-week CT scan for this patient and a follow-up appointment after this? Thank you documented in this encounter [facility] 02-23-2025 Consult note Formatting of th is [...] was bright red and it stopped just OFFICE ADMINISTRATION INSTRUCTOR when in transport. Reason for Consult: PEG [...] every 8 hours. 11/28/24 02/21/25 Yes DENIA Giarrd CNP acetaminophen (Tylenol) 325 MG tablet Take [...] constipation). 02/21/25 Historical Provider, epoetin rowan-epbx (Retacrit) 27054 UNIT/ML injection Inject 0.79 mL (7,900 Units) under the skin 1 (one) time per week. Patient not taking: Reported on 02/21/2025 12/04/24 02/21/25 DENIA Girard CNP pantoprazole (ProtoNix) 40 MG injection Infuse 40 mg into a venous catheter 2 times daily. 11/28/24 02/21/25 DENIA Girard CNP Allergies: Lisinopril Social History[3] Family History[4] REVIEW [...] 02/20/2025 [facility] 1965 [id number] Exam Date/Time: 02/20/2025 19:01 Procedure: CT CHEST [...] bilateral pleural effusions. 5. Cholelithiasis, and diminutive [place] kidneys. Report Dictated on Electronically Signed By: [...] Jaskaran Bey MD General Surgery PGY-2 Pager [phone] [1] Past Medical History: Diagnosis Date Acute renal failure (ARF) ([facility]) 10/19/2019 Anemia 12/30/2021 Calcification of abdominal aorta (HCC) 10/08/202309/[address] abd Diverticulosis 10/08/2023 ESRD on hemodialysis (CMS/HCC) (HCC) 10/26/2019 Hemodialysis patient ([facility]) ([facility]) HTN (hypertension) 12/01/2022 Hypertension IgA nephropathy 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 10/26/2019 Missed vaccination due to patient refusal 10/08/2023 Has a number of non-scientific based beliefs which interfere with his understanding and acceptance of the medical benefit of vaccination. Nonrheumatic aortic valve stenosis 10/08/2023 Paroxysmal A-fib ([facility]) ([facility]) 08/18/2023 Tobacco abuse 10/08/2023 [2] Past Surgical History: Procedure Laterality Date APPENDECTOMY CARDIAC CATHETERIZATION N/A 10/09/2024 Performed by Bob Watson MD at [facility] Cardiac Cath/EP Lab CARDIAC CATHETERIZATION Bilateral 11/01/2024 Performed by Bob Watson MD at [facility] Cardiac Cath/EP Lab CARDIAC CATHETERIZATION N/A 11/01/2024 Performed by Bob Watson MD at [facility] Cardiac Cath/EP Lab COLONOSCOPY N/A 01/24/2025 Performed by Chadd Davis MD at [facility] ENDOSCOPY FISTULAGRAM (HISTORICAL) Left 09/15/2021 LEFT UPPER ARM HX AV FISTULA CREATION IR EMBOLIZATION 10/14/2024 IR EMBOLIZATION 10/14/2024 [facility] SPECIAL PROCEDURES IR FISTULAGRAM 08/07/2022 IR FISTULAGRAM 08/07/2022 [facility] IR IMAGING TONSILLECTOMY (HISTORICAL) [3] Social History [...] 0 min Stress: Stress Concern Present (02/21/2025) [employer] - Occupational Stress Questionnaire Feeling of Stress : To some extent Social Connections: Unknown (02/21/2025) Social Connection and Isolation Panel [NHANES] Frequency of Communication with Friends and Family: More than three times a week Frequency of Social Gatherings with Friends and Family: Patient declined Attends [employer]ybeterian Services: Patient declined Active Member of Clubs [...] as below, received trach and PEG on 11/14/24 -trach has been decannulated for sometime -has not used PEG at all of late, reasonable to remove -PEG tube removed -diet as tolerated -continue daily dressing change until tract is completely closed/healed -please call with questions or new concerns Total Care Time throughout the day today was >= 55 minutes (including chart/data review/analysis, care coordination, and onil-zb-zycz encounter), and was spent discussing/counseling the patient/family [...] -Performing a medically appropriate exam and evaluation Prince Ramirez MD, FACS Trauma, Surgical Critical Care, & Acute Care Surgery Department of Surgery [facility] Pager: [phone] ~~~~~~~~~~~~~~~~~~~~~~~~~~~~~~~~ ~~~~~~~~~~~~~~~~~~~~~~~~~~~~~ This note may have been dictated using [employer] Medical Practice Edition 2.6 and/or [employer] Voice Recognition Feature. The document was proofread; however, unrecognized voice recognition wardrobe assistant errors may be present. [1] Patient Active Problem List Diagnosis Anemia Paroxysmal A-fib ([facility]) ([facility]) HTN (hypertension) ESRD on hemodialysis ([facility]) ([facility]) 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 Diverticulosis Nonrheumatic aortic valve stenosis Calcification of abdominal aorta ([facility]) Missed vaccination due to patient refusal Tobacco abuse Alcohol use disorder in remission Atrial flutter, unspecified type ([facility]) RSV (acute bronchiolitis due to respiratory syncytial virus) Aortic stenosis Upper GI bleed S/P AVR Acute hypoxic respiratory failure ([facility]) Acute encephalopathy Pneumoperitoneum Gastric ulceration Severe malnutrition ([facility]/H[facility]) ([facility]) Pleural effusion Peritonitis due to fungus ([facility]) History of abdominal surgery Leg DVT (deep venous thromboembolism), acute, left ([facility]) 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, 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 of skin ([facility]) 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[facility]) Leukocytosis Decubitus ulcer of sacral region, unstageable ([facility]) Pneumonia of both lungs due to methicillin susceptible Staphylococcus aureus (MSSA) ([facility]) Sacral osteomyelitis ([facility]) ([facility]) Acute respiratory failure with hypoxia ([facility]) [J96.01] Tracheostomy care ([facility]) [Z43.0] 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[facility]) longterm (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 Complication of tracheostomy ([facility]) ([facility]) BRBPR (bright red blood per rectum) Hemoptysis Associated Order(s): IP CONSULT TO INFECTIOUS DISEASES Images from the original note were not included. [facility] - Infectious Diseases Attending Consult Note Reason [...] bilateral pleural effusions. 5. Cholelithiasis, and diminutive [place] kidneys. Past Medical History: Medical History[1] Past [...] 0 min Stress: Stress Concern Present (02/21/2025) [employer] - Occupational Stress Questionnaire Feeling of Stress : To some extent Social Connections: Unknown (02/21/2025) Social Connection and Isolation Panel [NHANES] Frequency of Communication with Friends and Family: More than three times a week Frequency of Social Gatherings with Friends and Family: Patient declined Attends [employer]yb[employer]ian Services: Patient declined Active Member of Clubs [...] History: Diagnosis Date Acute renal failure (ARF) ([facility]) 10/19/2019 Anemia 12/30/2021 Calcification of abdominal aorta ([facility]) 10/08/202309/[address] abd Diverticulosis 10/08/2023 ESRD on hemodialysis ([facility]) ([facility]) 10/26/2019 Hemodialysis patient ([facility]) ([facility]) HTN (hypertension) 12/01/2022 Hypertension IgA nephropathy 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 10/26/2019 Missed vaccination due to patient refusal 10/08/2023 Has a number of non-scientific based beliefs which interfere with his understanding and acceptance of the medical benefit of vaccination. Nonrheumatic aortic valve stenosis 10/08/2023 Paroxysmal A-fib ([facility]) ([facility]) 08/18/2023 Tobacco abuse 10/08/2023 [2] Past Surgical History: Procedure Laterality Date APPENDECTOMY CARDIAC CATHETERIZATION N/A 10/09/2024 Performed by Bob Watson MD at [facility] Cardiac Cath/EP Lab CARDIAC CATHETERIZATION Bilateral 11/01/2024 Performed by Bob Watson MD at [facility] Cardiac Cath/EP Lab CARDIAC CATHETERIZATION N/A 11/01/2024 Performed by Bob Watson MD at [facility] Cardiac Cath/EP Lab COLONOSCOPY N/A 01/24/2025 Performed by Chadd Davis MD at [facility] ENDOSCOPY FISTULAGRAM (HISTORICAL) Left 09/15/2021 LEFT UPPER ARM HX AV FISTULA CREATION IR EMBOLIZATION 10/14/2024 IR EMBOLIZATION 10/14/2024 [facility] SPECIAL PROCEDURES IR FISTULAGRAM 08/07/2022 IR FISTULAGRAM 08/07/2022 [facility] IR IMAGING TONSILLECTOMY (HISTORICAL) [3] Current Facility-Administered [...] x1 on 02/21. HD is on a // schedule with planned HD today. Will check level 4hrs post-HD and re-dose based on results. Follow renal status closely. Thank you for this consult. Please page/call with questions. Date: 02/22/25 Time: 9:31 AM Jolie Uribe RPh (available on [employer]) Associated Order(s): INPATIENT CONSULT TO WOUND CARE PROVIDERS Images from the original note were not included. [facility] Wound Care/NPWT Progress Note Jun Snyder AGE: [...] for pain with PO pain medication, per nursing staff development coordinator, prior to wound VAC dressing change. Wet [...] apply Betadine and allow to dry, leave CHANGEOVER OPERATOR daily and PRN Left plantar heel - unstageable pressure injury (POA): -cleanse with NS, apply Betadine and allow to dry, leave TISHA daily and PRN Right wrist Abrasion: -cleanse with antibacterial soap/water, leave CHANGEOVER OPERATOR daily Sacral Stage 4 pressure injury (POA): [...] to follow Recommend to follow up at [facility] Outpatient wound care center after hospital discharge. Any questions or concerns please secure chat [facility] wound/ostomy. Thank you for the consult! I personally obtained the franics and critical portions of the history and [...] History: Diagnosis Date Acute renal failure (ARF) ([facility]) 10/19/2019 Anemia 12/30/2021 Calcification of abdominal aorta ([facility]) 10/08/202309/[address] abd Diverticulosis 10/08/2023 ESRD on hemodialysis ([facility]) ([facility]) 10/26/2019 Hemodialysis patient ([facility]) ([facility]) HTN (hypertension) 12/01/2022 Hypertension IgA nephropathy 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 10/26/2019 Missed vaccination due to patient refusal 10/08/2023 Has a number of non-scientific based beliefs which interfere with his understanding and acceptance of the medical benefit of vaccination. Nonrheumatic aortic valve stenosis 10/08/2023 Paroxysmal A-fib ([facility]) ([facility]) 08/18/2023 Tobacco abuse 10/08/2023 [2] Past Surgical History: Procedure Laterality Date APPENDECTOMY CARDIAC CATHETERIZATION N/A 10/09/2024 Performed by Bob Watson MD at [facility] Cardiac Cath/EP Lab CARDIAC CATHETERIZATION Bilateral 11/01/2024 Performed by Bob Watson MD at [facility] Cardiac Cath/EP Lab CARDIAC CATHETERIZATION N/A 11/01/2024 Performed by Bob Watson MD at [facility] Cardiac Cath/EP Lab COLONOSCOPY N/A 01/24/2025 Performed by Chadd Davis MD at [facility] ENDOSCOPY FISTULAGRAM (HISTORICAL) Left 09/15/2021 LEFT UPPER ARM HX AV FISTULA CREATION IR EMBOLIZATION 10/14/2024 IR EMBOLIZATION 10/14/2024 [facility] SPECIAL PROCEDURES IR FISTULAGRAM 08/07/2022 IR FISTULAGRAM [...] needed (PRN constipation). [DISCONTINUED] epoetin rowan-epbx (Retacrit) 19471 UNIT/ML injection Inject 0.79 mL (7,900 Units) [...] & deltoids) Fluid Accumulation: Unable to assess Crocheter Hand Strength: Not Performed Nutrition Assessment: 59yo male admitted from [facility] 02/20 due to coughing up blood during [...] from NPO to Regular this morning. At [facility] diet was Potassium Restricted/Mech Soft/Thin [...] Total Energy Requirements (kcals/day): 30-35 kcal/kg = 0377-6628 kcal Weight Used for Protein Requirements: Current [...] lb) (08/28/24) % Weight Change (Calculated): -34.6 [place] Body Weight (lbs) (Calculated): 166 lbs [place] Body Weight (Kg) (Calculated): 75 kg % [place] Body Weight (Calculated): 81.1 % BMI (kg/m2) [...] soon to determine Jade Rodriguez RD Contact: [employer] fanta or [phone] Associated Order(s): INPATIENT CONSULT TO WOUND CARE PROVIDERS Images from the original note were not included. [facility] Wound Care CONSULT Note Jun Snyder AGE: [...] apply Betadine and allow to dry, leave CHANGEOVER OPERATOR daily and PRN Right wrist Abrasion: -cleanse with antibacterial soap/water, leave CHANGEOVER OPERATOR daily Sacral Stage 4 pressure injury (POA): [...] to follow Recommend to follow up at [facility] Outpatient wound care center after hospital discharge. [...] History: Diagnosis Date Acute renal failure (ARF) ([facility]) 10/19/2019 Anemia 12/30/2021 Calcification of abdominal aorta ([facility]) 10/08/202309/[address] abd Diverticulosis 10/08/2023 ESRD on hemodialysis ([facility]) ([facility]) 10/26/2019 Hemodialysis patient ([facility]) ([facility]) HTN (hypertension) 12/01/2022 Hypertension IgA nephropathy 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 10/26/2019 Missed vaccination due to patient refusal 10/08/2023 Has a number of non-scientific based beliefs which interfere with his understanding and acceptance of the medical benefit of vaccination. Nonrheumatic aortic valve stenosis 10/08/2023 Paroxysmal A-fib ([facility]) ([facility]) 08/18/2023 Tobacco abuse 10/08/2023 [2] Past Surgical History: Procedure Laterality Date APPENDECTOMY CARDIAC CATHETERIZATION N/A 10/09/2024 Performed by Bob Watson MD at [facility] Cardiac Cath/EP Lab CARDIAC CATHETERIZATION Bilateral 11/01/2024 Performed by Bob Watson MD at [facility] Cardiac Cath/EP Lab CARDIAC CATHETERIZATION N/A 11/01/2024 Performed by Bob Watson MD at [facility] Cardiac Cath/EP Lab COLONOSCOPY N/A 01/24/2025 Performed by Chadd Davis MD at [facility] ENDOSCOPY FISTULAGRAM (HISTORICAL) Left 09/15/2021 LEFT UPPER ARM HX AV FISTULA CREATION IR EMBOLIZATION 10/14/2024 IR EMBOLIZATION 10/14/2024 [facility] SPECIAL PROCEDURES IR FISTULAGRAM 08/07/2022 IR FISTULAGRAM [...] needed (PRN constipation). [DISCONTINUED] epoetin rowan-epbx (Retacrit) 69044 UNIT/ML injection Inject 0.79 mL (7,900 Units) under the skin 1 (one) time per week. (Patient not taking: Reported on 02/21/2025) [DISCONTINUED] pantoprazole (ProtoNix) 40 MG injection Infuse 40 mg into a venous catheter 2 times daily. Cosigned by Ahsan Gill DO at 02/26/2025 4:59 PM EDT Associated Order(s): IP CONSULT TO PULMONOLOGY Images from the original note were not included. [facility] Pul[place] [phone] PULMONARY CONSULTATION NOTE. Patient - Jun Snyder, [...] Dose Status acetaminophen (Tylenol) 325 MG tablet [id number] No Take 650 mg by mouth every 6 hours as needed for mild pain (1-3) or fever. Patient not taking: Reported on 02/21/2025 Historical ProviderMD Unknown Active Ampicillin-Sulbactam Sodium (UNASYN IV) [id number] Infuse 3 g into a venous catheter Every 24 hours. Historical ProviderMD 02/14/25 2359 B complex-vitamin C-folic acid (Nephro-Nato Rx) 1 MG tablet [id number] Take 1 tablet by mouth daily. Historical ProviderMD Active bisacodyl (Dulcolax) 5 MG EC tablet [id number] Take 5 mg by mouth Daily as needed for constipation. Do not crush, chew, or split. Historical ProviderMD Active bisacodyl (Dulcolax) 5 mg split suppository [id number] Insert 10 mg into the rectum Daily as needed (PRN constipation). Historical ProviderMD Active epoetin rowan-epbx (Retacrit) 81513 UNIT/ML injection [id number] No Inject 0.79 mL (7,900 Units) under the skin 1 (one) time per week. Patient not taking: Reported on 02/21/2025 DENIA Girard CNP Unknown Active ipratropium-albuterol (Duo-Neb) 0.5-2.5 mg/3 mL nebulizer solution [id number] Yes Take 3 mL by nebulization every 8 hours. DENIA Girard CNP Past Week Active Lidocaine 4 % patch [id number] Apply 1 patch topically daily. DENIA Girard CNP Active magnesium hydroxide (Milk of Magnesia) 800 MG/5ML suspension [id number] Take 30 mL by mouth Daily as needed for constipation (if no bm in 3 days). Historical Provider, Active melatonin 5 MG tablet [id number] 1 tablet (5 mg) by Per G Tube route Nightly as needed (insomnia). DENIA Girard CNP Active metoprolol tartrate (Lopressor) 25 MG tablet [id number] 1 tablet (25 mg) by Per G Tube route 2 times daily. DENIA Girard CNP Active midodrine (Proamatine) 5 MG tablet [id number] 3 tablets (15 mg) by Per G Tube route every 6 hours. DENIA Girard CNP 02/14/25 235 naloxone in sodium chloride (PF) injection injection [id number] Inject 0.04 mg into the shoulder, thigh, or buttocks as needed for opioid reversal or respiratory depression. Historical Provider, Active oxyCODONE (Roxicodone) 5 MG immediate release tablet [id number] Take 1 tablet (5 mg) by mouth every 6 hours as needed for moderate pain (4-6) for up to 5 days. Barb Dawkins MD 02/14/25 2359 pantoprazole (ProtoNix) 40 MG injection [id number] Infuse 40 mg into a venous catheter 2 times daily. DENIA Girard CNP Active QUEtiapine (SEROquel) 25 MG tablet [id number] 1 tablet (25 mg) by Per G Tube route Nightly. DENIA Girard CNP 02/14/25 2359 sevelamer (Renagel) 800 MG tablet [id number] Take 800 mg by mouth 3 times daily (with meals). Swallow tablet whole; do not crush, break, or chew. Give with meals for CKD/dialysis Historical Provider, Active warfarin (Coumadin) 1 MG tablet [id number] Yes Take as directed per After Visit Summary. Osirisfredo Terrell, LOG HANDLING EQUIPMENT OPERATOR - WHITE SHOE RAGGER 02/19/2025 Active Social History Social History Tobacco [...] time. LABS and Studies: CBC: Recent Labs 02/20/25182402/21/2552 WBC 9.4 7.0 HGB 8.7* 8.3* HCT 26.8* 25.7* PLT 312 316 BMP: Recent Labs 02/20/25182402/21/2552 NA 133* 131* K 3.1* 3.1* CL 92* 91* CO2 29 28 BUN 29* 29* CREATININE 2.57* 2.89* GLUCOSE 80 74 CALCIUM 9.6 9.3 MG -- 2.2 PHOS -- 2.0* HEPATIC: Recent Labs 02/21/2552 AST 39* ALT 8 BILITOT 0.8 ALKPHOS 120 LACTATE: No lab exists for component: LACTA PROCALCITONIN: Recent Labs 02/21/2552 PROCAL 0.68* TROPONIN: No results for input(s): TROPONINI in the last 72 hours. BNP: No results for input(s): BNP in the last 72 hours. INR: Recent Labs 02/20/251824 INR 1.4* BLOOD GAS: No results for [...] 10/09/2024 Performed by Bob Watson MD at [facility] Cardiac Cath/EP Lab CARDIAC CATHETERIZATION Bilateral 11/01/2024 Performed by Bob Watson MD at [facility] Cardiac Cath/EP Lab CARDIAC CATHETERIZATION N/A 11/01/2024 Performed by Bob Watson MD at [facility] Cardiac Cath/EP Lab COLONOSCOPY N/A 01/24/2025 Performed by Chadd Davis MD at [facility] ENDOSCOPY FISTULAGRAM (HISTORICAL) Left 09/15/2021 LEFT UPPER ARM HX AV FISTULA CREATION IR EMBOLIZATION 10/14/2024 IR EMBOLIZATION 10/14/2024 [facility] SPECIAL PROCEDURES IR FISTULAGRAM 08/07/2022 IR FISTULAGRAM 08/07/2022 [facility] IR IMAGING TONSILLECTOMY (HISTORICAL) [2] Allergies Allergen Reactions Lisinopril Swelling and Angioedema [3] Family History Problem Relation Name Age of Onset No Known Problems Mother No Known Problems Father Cosigned by Angeles Blackburn DO at 02/21/2025 4:01 PM EDT Associated attestation - Angeles Blackburn DO - 02/21/2025 4:01 PM EDT I have personally performed a [id number] diagnostic evaluation on this patient on date of service 02/21/2025. History, labs, imaging studies, and electronic medical record have been reviewed by me. This note documented by the [x]packing house laborer []ARMIN reflects my history, exam, and medical [...] RA Associated Order(s): IP CONSULT TO NEPHROLOGY [facility] [address] [place] [address] Consult Note Patient's Name: Jun Snyder 10:29 [...] bilateral pleural effusions. 5. Cholelithiasis, and diminutive [place] kidneys. Assessment and Plan: 59 y.o. male [...] any questions or concerns Bree Molina APRN WHITE SHOE RAGGER A-G MILITARY TECHNOLOGY SPECIALIST [facility] [phone] Pt seen and examined independently by me. I reviewed with LOG HANDLING EQUIPMENT OPERATOR-WHITE SHOE RAGGER the medical history and the findings on physical examination. I discussed the patient s diagnosis and concur with the treatment plan as documented in his note. Please call [phone] or message me through [employer] with any questions or concerns. [1] Past Medical History: Diagnosis Date Acute renal failure (ARF) ([facility]) 10/19/2019 Anemia 12/30/2021 Calcification of abdominal aorta (HCC) 10/08/202309/[address] abd Diverticulosis 10/08/2023 ESRD on hemodialysis ([facility]) (HCC) 10/26/2019 Hemodialysis patient ([facility]/HCC) ([facility]) HTN (hypertension) 12/01/2022 Hypertension IgA nephropathy 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 10/26/2019 Missed vaccination due to patient refusal 10/08/2023 Has a number of non-scientific based beliefs which interfere with his understanding and acceptance of the medical benefit of vaccination. Nonrheumatic aortic valve stenosis 10/08/2023 Paroxysmal A-fib (CMS/HCC) (HCC) 08/18/2023 Tobacco abuse 10/08/2023 [2] Past Surgical History: Procedure Laterality Date APPENDECTOMY CARDIAC CATHETERIZATION N/A 10/09/2024 Performed by Bob Watson MD at [facility] Cardiac Cath/EP Lab CARDIAC CATHETERIZATION Bilateral 11/01/2024 Performed by Bob Watson MD at [facility] Cardiac Cath/EP Lab CARDIAC CATHETERIZATION N/A 11/01/2024 Performed by Bob Watson MD at [facility] Cardiac Cath/EP Lab COLONOSCOPY N/A 01/24/2025 Performed by Chadd Davis MD at [facility] ENDOSCOPY FISTULAGRAM (HISTORICAL) Left 09/15/2021 LEFT UPPER ARM HX AV FISTULA CREATION IR EMBOLIZATION 10/14/2024 IR EMBOLIZATION 10/14/2024 [facility] SPECIAL PROCEDURES IR FISTULAGRAM 08/07/2022 IR FISTULAGRAM 08/07/2022 SB IR IMAGING TONSILLECTOMY (HISTORICAL) [3] Family History Problem Relation Name Age of Onset No Known Problems Mother No Known Problems Father documented in this encounter [facility] 02-23-2025 Telephone encount er Note Antonio, can we please schedule a 6-week CT scan for this patient and a follow-up appointment after this? Thank you [facility] 02-22-2025 Hospital Discharg e steven Hurtado DO - 02/22/2025 2:54 PM EDT Images [...] 10/09/2024 Performed by Bob Watson MD at [facility] Cardiac Cath/EP Lab CARDIAC CATHETERIZATION Bilateral 11/01/2024 Performed by Bob Watson MD at [facility] Cardiac Cath/EP Lab CARDIAC CATHETERIZATION N/A 11/01/2024 Performed by Bob Watson MD at [facility] Cardiac Cath/EP Lab COLONOSCOPY N/A 01/24/2025 Performed by Chadd Davis MD at [facility] ENDOSCOPY FISTULAGRAM (HISTORICAL) Left 09/15/2021 LEFT UPPER ARM HX AV FISTULA CREATION IR EMBOLIZATION 10/14/2024 IR EMBOLIZATION 10/14/2024 [facility] SPECIAL PROCEDURES IR FISTULAGRAM 08/07/2022 IR FISTULAGRAM 08/07/2022 [facility] IR IMAGING TONSILLECTOMY (HISTORICAL) Immunization History: Immunization [...] (CMS/HCC) (HCC) Acute respiratory failure with hypoxia ([facility]) [J96.01] Tracheostomy care ([facility]) [Z43.0] 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[facility]) 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 Complication of tracheostomy (CMS/HCC) (HCC) Anemia Aortic stenosis Upper GI bleed S/P AVR Acute hypoxic respiratory failure ([facility]) Acute encephalopathy Pneumoperitoneum BRBPR (bright red blood [...] Minimal assistance Toileting Minimal assistance Feeding Independent Fire Hydrant Operator Minimal assistance Med Delivery yes Wound Care Documentation and Therapy: Wound/Incision 11/13/24 Pressure Injury Sacrum (Active) Site Assessment Unable to assess;Other (Comment) 02/21/25 05 Odor None 02/21/25 05 Drainage Amount Other (Comment) 02/21/25 05 Treatments Other (Comment) 02/21/25 05 Primary Dressing Vacuum dressing 02/21/25 05 Dressing Status Other (Comment) 02/21/25 05 Number of days: 101 Wound/Incision 11/15/24 Traumatic [...] (Active) Site Assessment Unable to assess 02/21/25 0512 Drainage Description Unable to assess 02/21/25 0512 Drainage Amount Unable to assess 02/21/25 0512 Treatments Cleansed 02/22/25 0800 Primary Dressing Open [...] Date: 02/20/25 Discharging to Facility/ Agency Name: Annia Ruano Address: [address] , [place] [id number] Dialysis Facility (if applicable) Name: Address: Dialysis Schedule: Phone: Fax: Wrecking Crane Engine Operator/Rotary Peel Oven Tender signature: ICIAN SECTION Name: Jun Snyder Prognosis: excellent Condition at Discharge: stable Rehab Potential (if transferring to Rehab): excellent Recommended Labs or Other Treatments After Discharge: BMP/CBC/INR within 1 day. Follow up with PCP within 1 week to review all medications and findings of this admission. Coumadin dosing Date INR Dose 9 - 1.8 - 7.5mg 6/8 - 1.5 [...] to a nursing facility directly from an [facility] or a unit of a hospital that is not operated by or licensed by [facility] under section 5119.14 or 5160-3-15.1 5 The individual requires the level of services provided by a nursing facility for the condition for which he or she was treated in the hospital and, Physician Certification: I certify the above information and transfer of Jun Snyder is necessary for the continuing treatment of the diagnosis listed and that he requires [facility] facility for less than 30 days. Update [...] - 2mg 6/2 - 1.3 - 1.5mg 6/1 - 1.3 - 1 mg /31 - 1.3 - 1 mg documented in this encounter [facility] 02-21-2025 Telephone encount er Note Name of caller: Padmini Contact phone number: [phone] Relationship to Patient: [facility] Provider: Mariano Practice: Infectious Disease Chief Complaint/Reason for Call: [facility] need a routine consult for this patient for Hemoptysis Cavitary lung lesion. Please advise Padmini Best time of day caller can be reached: any Patient advised that office/PCP has 24-48 business hours to return their call: Yes [facility] 02-21-2025 Miscellaneous Notes Formattin g of this note might be different from the original. Name of caller: Padmini Contact phone number: [phone] Relationship to Patient: [facility] Provider: Mariano Practice: Infectious Disease Chief Complaint/Reason for Call: [facility] need a routine consult for this patient for Hemoptysis Cavitary lung lesion. Please advise Padmini Peters time of day caller can be reached: any Patient advised that office/PCP has 24-48 business hours to return their call: Yes documented in this encounter [facility] 02-21-2025 Note Referral placed to [facility] via [facility] per TCC request. Await review and response regarding ability to accept. TCC notified. Electronically signed by [facility] History and physical note Attending History [...] bilateral pleural effusions. 5. Cholelithiasis, and diminutive [place] kidneys. Past Medical History: Past Medical History: Diagnosis Date Acute renal failure (ARF) ([facility]) 10/19/2019 Anemia 12/30/2021 Calcification of abdominal aorta ([facility]) 10/08/202309/[address] abd Diverticulosis 10/08/2023 ESRD on hemodialysis ([facility]) ([facility]) 10/26/2019 Hemodialysis patient ([facility]) ([facility]) HTN (hypertension) 12/01/2022 Hypertension IgA nephropathy 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 10/26/2019 Missed vaccination due to patient refusal 10/08/2023 Has a number of non-scientific based beliefs which interfere with his understanding and acceptance of the medical benefit of vaccination. Nonrheumatic aortic valve stenosis 10/08/2023 Paroxysmal A-fib ([facility]) ([facility]) 08/18/2023 Tobacco abuse 10/08/2023 Past Surgical History: [...] To Answer (12/01/2024) Received from [facility] Overall Financial Resource Strain (CARDIA) Difficulty of Paying Living Expenses: Patient unable to answer Food Insecurity: Patient Unable To Answer (12/01/2024) Received from [facility] Hunger Vital Sign Worried About Running Out of Food in the Last Year: Patient unable to answer Ran Out of Food in the Last Year: Patient unable to answer Transportation Needs: No Transportation Needs (01/18/2025) Received from [facility] Transportation Source Has lack of transportation kept you from medical appointments or from getting medications?: No Has lack of transportation kept you from meetings, work, or from getting things needed for daily living?: No Physical Activity: Not on file Stress: No Stress Concern Present (01/18/2025) Received from [facility] of Occupational Health - Occupational Stress Questionnaire Feeling of Stress : Not at all Social Connections: Patient Unable To Answer (12/01/2024) Received from [facility] Social Connection and Isolation Panel [NHANES] Frequency of Communication with Friends and Family: Patient unable to answer Frequency of Social Gatherings with Friends and Family: Patient unable to answer Attends Presybeterian Services: Patient unable to answer Active Member of Clubs or Organizations: Patient unable to answer Attends Club or Organization Meetings: Patient unable to answer Marital Status: Patient unable to answer Intimate Partner Violence: Patient Unable To Answer (11/28/2024) Received from [facility] Medical Domestic Abuse Assessment Do you feel safe in your relationships at home?: Unable to assess Physical Abuse: Unable to assess [facility] Domestic Abuse - Type of Abuse: Not on file [facility] Domestic Abuse - Time Frame: Not on file [facility] Domestic Abuse - Signs and Symptoms: Not on file Verbal Abuse: Unable to assess [facility] Domestic Abuse - Reported To: Not on file Housing Stability: Patient Unable To Answer (12/01/2024) Received from [facility] Housing Stability Vital Sign Unable to Pay [...] exists for component: LABALBU PT/INR: Recent Labs 02/20/25 1825 PROTIME 14.7* INR 1.4* CARDIAC ENZYMES: No [...] MD Division of Hospital Medicine Inpatient Medical Services/[facility] [1] Past Surgical History: Procedure Laterality Date APPENDECTOMY CARDIAC CATHETERIZATION N/A 10/09/2024 Performed by Bob Watson MD at [facility] Cardiac Cath/EP Lab CARDIAC CATHETERIZATION Bilateral 11/01/2024 Performed by Bob Watson MD at [facility] Cardiac Cath/EP Lab CARDIAC CATHETERIZATION N/A 11/01/2024 Performed by Bob Watson MD at [facility] Cardiac Cath/EP Lab COLONOSCOPY N/A 01/24/2025 Performed by Chadd Davis MD at [facility] ENDOSCOPY FISTULAGRAM (HISTORICAL) Left 09/15/2021 LEFT UPPER ARM HX AV FISTULA CREATION IR EMBOLIZATION 10/14/2024 IR EMBOLIZATION 10/14/2024 [facility] SPECIAL PROCEDURES IR FISTULAGRAM 08/07/2022 IR FISTULAGRAM 08/07/2022 SB IR IMAGING TONSILLECTOMY (HISTORICAL) [2] Family History Problem Relation Name Age of Onset No Known Problems Mother No Known Problems Father [3] Allergies Allergen Reactions Lisinopril Swelling and Angioedema documented in this encounter [facility] 02-20-2025 Note [facility] 02-20-2025 Emergency department Note Called report to [...] placed. Wound is being cared for by [facility] facility where he resides EMERGENCY DEPARTMENT ENCOUNTER [...] was bright red and it stopped just OFFICE ADMINISTRATION INSTRUCTOR when in transport. HISTORY OF PRESENT ILLNESS [...] CURRENT MEDICATIONS Previous Medications EPOETIN ROWAN-EPBX (RETACRIT) 60202 UNIT/ML INJECTION Inject 0.79 mL (7,900 Units) [...] Resp BP 02/20/25 1751 02/20/25 1751 02/20/25 1751 02/20/25 1751 36.6 C (97.9 F) 86 18 135/81 SpO2 Temp Source Heart Rate Source Patient Position 02/20/25201202/20/25 1751 02/20/25 1751 02/20/25 1751 99 % Oral Monitor Lying BP Location FiO2 (%) 02/20/25 1751 -- Right arm Physical Exam Vitals and [...] bilateral pleural effusions. 5. Cholelithiasis, and diminutive [place] kidneys. Report Dictated on Electronically Signed By: [...] of hemoptysis, he will be admitted at [facility] under the hospitalist service in case he [...] History: Diagnosis Date Acute renal failure (ARF) ([facility]) 10/19/2019 Anemia 12/30/2021 Calcification of abdominal aorta ([facility]) 10/08/202309/[address] abd Diverticulosis 10/08/2023 ESRD on hemodialysis ([facility]) ([facility]) 10/26/2019 Hemodialysis patient ([facility]) ([facility]) HTN (hypertension) 12/01/2022 Hypertension IgA nephropathy 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 10/26/2019 Missed vaccination due to patient refusal 10/08/2023 Has a number of non-scientific based beliefs which interfere with his understanding and acceptance of the medical benefit of vaccination. Nonrheumatic aortic valve stenosis 10/08/2023 Paroxysmal A-fib (CMS/HCC) (HCC) 08/18/2023 Tobacco abuse 10/08/2023 [2] Past Surgical History: Procedure Laterality Date APPENDECTOMY CARDIAC CATHETERIZATION N/A 10/09/2024 Performed by Bob Watson MD at [facility] Cardiac Cath/EP Lab CARDIAC CATHETERIZATION Bilateral 11/01/2024 Performed by Bob Watson MD at [facility] Cardiac Cath/EP Lab CARDIAC CATHETERIZATION N/A 11/01/2024 Performed by Bob Watson MD at [facility] Cardiac Cath/EP Lab COLONOSCOPY N/A 01/24/2025 Performed by Chadd Davis MD at [facility] ENDOSCOPY FISTULAGRAM (HISTORICAL) Left 09/15/2021 LEFT UPPER ARM HX AV FISTULA CREATION IR EMBOLIZATION 10/14/2024 IR EMBOLIZATION 10/14/2024 [facility] SPECIAL PROCEDURES IR FISTULAGRAM 08/07/2022 IR FISTULAGRAM [...] Patient Unable To Answer (12/01/2024) Received from [facility] Medical Overall Financial Resource Strain (CARDIA) Difficulty of Paying Living Expenses: Patient unable to answer Food Insecurity: Patient Unable To Answer (12/01/2024) Received from [facility] Medical Hunger Vital Sign Worried About Running Out of Food in the Last Year: Patient unable to answer Ran Out of Food in the Last Year: Patient unable to answer Transportation Needs: No Transportation Needs (01/18/2025) Received from [facility] Medical [facility] Transportation Source Has lack of transportation kept you from medical appointments or from getting medications?: No Has lack of transportation kept you from meetings, work, or from getting things needed for daily living?: No Stress: No Stress Concern Present (01/18/2025) Received from [facility] Medical [place] [facility] of Occupational Health - Occupational Stress Questionnaire Feeling of Stress : Not at all Social Connections: Patient Unable To Answer (12/01/2024) Received from [facility] Medical Social Connection and Isolation Panel [NHANES] Frequency of Communication with Friends and Family: Patient unable to answer Frequency of Social Gatherings with Friends and Family: Patient unable to answer Attends Presybeterian Services: Patient unable to answer Active Member [...] Patient Unable To Answer (12/01/2024) Received from [facility] Medical Housing Stability Vital Sign Unable to [...] was bright red and it stopped just OFFICE ADMINISTRATION INSTRUCTOR when in transport. documented in this encounter [facility] 02-14-2025 History of Presen t illness Narrative Images from the original note were not included. [facility] Medical Group Infectious Diseases Advanced Practice Provider Outpatient Progress Note HISTORYOF PRESENT ILLNESS 59 yo male with PMHx significant for ESRD on HD via AVF, HTN, PAD who was admitted at [facility] (10/03/24-11/28/24) where he underwent AVR (10/12/24). Post-op [...] Pip-Tazo and Anidulafungin. Patient was discharged to [facility] on 11/28/24 where he was followed by our ID group for recurrent MSSA LRTI. He additionally had a sacral wound that was debrided to bone 01/02/25 (Sacral wound Cx + E faecalis, Clostridium clostridioforme). He was on a course of Amp-Sulbactam planned for 6 weeks through 02/13/25 and discharged to [facility] 01/18/25. Patient then presented to [facility] 01/19 after inadvertently self-dislodging tracheostomy. He was transferred to [facility] ICU for airway management and to determine if replacement tracheostomy was needed; decision was made to leave tracheostomy out. He was transferred to [facility] same day. 01/20 GI and critical care were consulted dt rectal bleeding. He was transferred back to ICU and had an EGD that showed non-bleeding duodenal ulcer. At that time sacral wound was also noted to be bleeding. Wound vac was applied. He continued on course of Amp-Sulbactam as planned through 02/13/25 and had tunneled line placed. Patient was discharged to SNF 02/01/25. Patient presents today for EOT follow [...] Patient Unable To Answer (12/01/2024) Received from [facility] Overall Financial Resource Strain (CARDIA) Difficulty of Paying Living Expenses: Patient unable to answer Food Insecurity: Patient Unable To Answer (12/01/2024) Received from [facility] Hunger Vital Sign Worried About Running Out of Food in the Last Year: Patient unable to answer Ran Out of Food in the Last Year: Patient unable to answer Transportation Needs: No Transportation Needs (01/18/2025) Received from [facility] Transportation Source Has lack of transportation kept you from medical appointments or from getting medications?: No Has lack of transportation kept you from meetings, work, or from getting things needed for daily living?: No Physical Activity: Not on file Stress: No Stress Concern Present (01/18/2025) Received from [facility] of Occupational Health - Occupational Stress Questionnaire Feeling of Stress : Not at all Social Connections: Patient Unable To Answer (12/01/2024) Received from [facility] Medical Social Connection and Isolation Panel [NHANES] Frequency of Communication with Friends and Family: Patient unable to answer Frequency of Social Gatherings with Friends and Family: Patient unable to answer Attends Presybeterian Services: Patient unable to answer Active Member of Clubs or Organizations: Patient unable to answer Attends Club or Organization Meetings: Patient unable to answer Marital Status: Patient unable to answer Intimate Partner Violence: Patient Unable To Answer (11/28/2024) Received from [facility] Medical Domestic Abuse Assessment Do you feel safe in your relationships at home?: Unable to assess Physical Abuse: Unable to assess [facility] Domestic Abuse - Type of Abuse: Not on file [facility] Domestic Abuse - Time Frame: Not on file [facility] Domestic Abuse - Signs and Symptoms: Not on file Verbal Abuse: Unable to assess [facility] Domestic Abuse - Reported To: Not on file Housing Stability: Patient Unable To Answer (12/01/2024) Received from [facility] Medical Housing Stability Vital Sign Unable to [...] neg 01/22 Acinetobacter baumannii PCR: neg Previous ([facility]) 01/02- sacral wound cx- E faecalis (Amp-S), skin ila, Clostridium clostrioforme 01/01- blood cx- 2/2 NG 12/30- blood cx- 2/2 NGTD 12/30- sputum cx- MSSA, resp ila 12/25- blood cx- 2/2 negative 12/14- sputum cx- MSSA, resp ila 12/14- MRSA pcr- MSSA 12/11- sputum cx- MSSA, resp ila Previous ([facility]) 11/28- L pleural fluid- negative 11/16- abd [...] negative 10/03- blood cx- 2/2 negative 10/03- plex- RSV Lines: AVF Tunneled line- removed 02/14 [...] stamp for accounting for open encounter. Mikala MORAN PA-C [facility] [place]ious Disease [1] Past Medical History: Diagnosis Date Acute renal failure (ARF) ([facility]) 10/19/2019 Anemia 12/30/2021 Calcification of abdominal aorta ([facility]) 10/08/202309/[address] abd Diverticulosis 10/08/2023 ESRD on hemodialysis ([facility]) ([facility]) 10/26/2019 Hemodialysis patient ([facility]) ([facility]) HTN (hypertension) 12/01/2022 Hypertension IgA nephropathy 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 10/26/2019 Missed vaccination due to patient refusal 10/08/2023 Has a number of non-scientific based beliefs which interfere with his understanding and acceptance of the medical benefit of vaccination. Nonrheumatic aortic valve stenosis 10/08/2023 Paroxysmal A-fib ([facility]) ([facility]) 08/18/2023 Tobacco abuse 10/08/2023 [2] Family History Problem Relation Name Age of Onset No Known Problems Mother No Known Problems Father documented in this encounter [facility] 02-02-2025 History of Presen t illness Narrative Images from the original note were not included. Pt discharged to [facility] on 02/01/25. Updated tracker with hospital doses. Warfarin dosing instructions: 0.5 mg per day. New interacting meds: N/a Next SAILAJA appt: post SNF documented in this encounter [facility] 02-02-2025 History of Presen t illness Narrative Images from the original note were not included. Pt discharged to [facility] on 02/01/25. Updated tracker with hospital doses. Warfarin dosing instructions: 0.5 mg per day. New interacting meds: N/a Next SAILAJA appt: post SNF Patient is still at [facility] ([phone]). I left a message for ELIA Anderson, regarding discharge plans. documented in this encounter [facility] 02-02-2025 History of Presen t illness Narrative Images from the original note were not included. [facility] [facility] on 02[facility]. Updated tracker with hospital doses. Warfarin dosing instructions: 0.5 mg per day. New interacting meds: N/a Next SAILAJA appt: post SNF Patient is still at [facility] ([phone]). I left a message for ELIA Anderson, [...] readmitted on 02/20 and discharged back to [facility] on 03/05. documented in this encounter [facility] 02-01-2025 Nurse Note Transport here to take patient to [facility]. Wound Vac tubing clamped and disconnected from wound vac. Facility will determine if tubing is compatible with their wound vacs. Wound Vac Dressing leaking with foam falling out. Dressing removed and W-D drsg applied. Patient Name: Jun Snyder Patient : 1965 Acct: [id number] Date of Admission: 01/19/2025 Room[facility] A Code Status: Full Code Allergies: Allergies Allergen Reactions Lisinopril Swelling and Angioedema Diagnosis: Patient Active Problem List Diagnosis Anemia Paroxysmal A-fib ([facility]) ([facility]) HTN (hypertension) ESRD on hemodialysis ([facility]) ([facility]) 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 Diverticulosis Nonrheumatic aortic valve stenosis Calcification of abdominal aorta ([facility]) Missed vaccination due to patient refusal Tobacco abuse Alcohol use disorder in remission Atrial flutter, unspecified type ([facility]) RSV (acute bronchiolitis due to respiratory syncytial virus) Aortic stenosis Upper GI bleed S/P AVR Acute hypoxic respiratory failure ([facility]) Acute encephalopathy Pneumoperitoneum Gastric ulceration Severe malnutrition ([facility]) ([facility]) Pleural effusion Peritonitis due to fungus ([facility]) History of abdominal surgery Leg DVT (deep venous thromboembolism), acute, left ([facility]) 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, 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 of skin ([facility]) 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[facility]) Leukocytosis Decubitus ulcer of sacral region, unstageable ([facility]) Pneumonia of both lungs due to methicillin susceptible Staphylococcus aureus (MSSA) ([facility]) Sacral osteomyelitis ([facility]) ([facility]) Acute respiratory failure with hypoxia ([facility]) [J96.01] Tracheostomy care ([facility]) [Z43.0] 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[facility]) 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 Complication of tracheostomy ([facility]) ([facility]) BRBPR (bright red blood per rectum) Treatment: [...] 01/31/25 0400 -- -- -- -- Diminished Ecchymosis;[place];Mark Warm;Dry Flat;Gastrostomy tube Active 01/31/25 0801 Alert [...] 20 mL/hr, Last Rate: 20 mL/hr (01/30/251837) Safety - Before each treatment: Dialysis Machine No.: [id number] RO Machine Number: [id number] Dialyzer Lot No.: [id number] Tubing Lot Number: [id number] All Connections Secure: Yes Venous Parameters Set: Yes Arterial Parameters Set: Yes NS Bag: Yes Saline Line Double Clamped: Yes Dialyzer: Nipro Prime Volume (mL): 200 mL RO Machine Number: [id number] RO Machine Log Sheet Completed: Yes Machine Alarm Self Test: Completed, Passed (722) (01/31/25742) Air Foam Detector: Tested, Proper Function, pH Reading Extracorporeal Circuit Tested for Integrity: Yes Machine Conductivity: 13.7 Manual Conductivity: 13.7 Manual Ph: 7 Bleach Test (Neg): Yes Bath Temperature: 36 C (96.8 F) Conductivity Meter Serial #: [id number] Machine Functioning Alarm Free? Yes Dialysis Bath: K+ (Potassium): 2 Ca+ (Calcium): 2.5 Na+ (Sodium): 137 HCO3 (Bicarb): 35 Bicarbonate Concentrate Lot No.: [id number] Acid Concentrate Lot No.: [id number] Chlorine Testing - Before each treatment and every 4 hours: Time On: 0811 Time Off: 1111 Treatment Goal: 2L Weight Height: 177.8 cm (5' 10) (01/30/25 1002) Weight: 53.2 kg (117 lb 4.6 oz) (01/31/25 06) BMI (Calculated): 16.83 (01/31/25599) 1st check: less than 0.1 ppm at: [...] -- 79 20 100 % -- 01/31/25 06 -- -- -- -- -- -- 53.2 [...] Communication: Secure chat Response: Other (Comment) (med [employer]) Notification Date: 01/30/25 Notification Time: 2037 Reason for Communication: Medication concern Provider Role: Attending physician Method of Communication: Secure chat Response: Other (Comment) (med [employer]) Notification Time: 2037 Handoff complete and report [...] to Education: Verbalized Understanding Patient arrived from [facility], Dr. Borrero in to speak with the [...] Name: Jun Snyder Patient : 1965 Acct: [id number] Date of Admission: 01/19/2025 Room[facility]: [facility] A Code Status: Full Code Allergies: Allergies Allergen Reactions Lisinopril Swelling and Angioedema Diagnosis: Patient Active Problem List Diagnosis Anemia Paroxysmal A-fib ([facility]) ([facility]) HTN (hypertension) ESRD on hemodialysis ([facility]) ([facility]) 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 Diverticulosis Nonrheumatic aortic valve stenosis Calcification of abdominal aorta ([facility]) Missed vaccination due to patient refusal Tobacco abuse Alcohol use disorder in remission Atrial flutter, unspecified type ([facility]) RSV (acute bronchiolitis due to respiratory syncytial virus) Aortic stenosis Upper GI bleed S/P AVR Acute hypoxic respiratory failure ([facility]) Acute encephalopathy Pneumoperitoneum Gastric ulceration Severe malnutrition ([facility]) ([facility]) Pleural effusion Peritonitis due to fungus ([facility]) History of abdominal surgery Leg DVT (deep venous thromboembolism), acute, left ([facility]) 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, 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 of skin ([facility]) 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[facility]) Leukocytosis Decubitus ulcer of sacral region, unstageable ([facility]) Pneumonia of both lungs due to methicillin susceptible Staphylococcus aureus (MSSA) ([facility]) Sacral osteomyelitis ([facility]) ([facility]) Acute respiratory failure with hypoxia ([facility]) [J96.01] Tracheostomy care ([facility]) [Z43.0] 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[facility]) 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 Complication of tracheostomy ([facility]) ([facility]) BRBPR (bright red blood per rectum) Treatment: [...] Swapnil Eckert RN Incapacitated Nurse Education Completed: [place] HBsAg ONLY: Date Drawn: January 26, 2025 [...] 01/29/25 0800 -- -- -- -- Clear [place];Mark Warm;Dry Flat;Soft;Gastrostomy tube Active 01/29/25 0839 Alert (0) 3 Regular None (Room air) Clear [place] Warm;Dry;No swelling Soft Active 01/29/25 1210 Alert (0) 3 Regular None (Room air) Clear [place] -- -- -- Labs Lab Results Component Value Date/Time WBC 9.4 01/29/2025 033 HGB 8.6 (L) 01/29/2025 033 HGB 9.4 11/11/2024 0230 HCT 27.3 (L) 01/29/2025 033 PLT 271 01/29/2025 0337 NA 134 (L) 01/29/2025 0337 K 3.7 01/29/2025336 CL 94 (L) 01/29/2025 033 CO2 23 01/29/2025 033 BUN 21 01/29/2025 033 CREATININE 4.17 (H) 01/29/2025 033 CREATININE 9.99 (H) 10/27/2019 0545 CALCIUM 9.8 01/29/2025336 PHOS 4.9 (H) 01/29/2025336 IV Drips and Rate/Dose sodium chloride, 20 mL/hr, Last Rate: 20 mL/hr (01/25/252003) Safety - Before each treatment: Dialysis Machine No.: [id number] RO Machine Number: [id number] Dialyzer Lot No.: [id number] Tubing Lot Number: [id number] All Connections Secure: Yes Venous Parameters Set: Yes Arterial Parameters Set: Yes NS Bag: Yes Saline Line Double Clamped: Yes Dialyzer: Nipro Prime Volume (mL): 200 mL RO Machine Number: [id number] RO Machine Log Sheet Completed: Yes Machine Alarm Self Test: Completed, Passed (01/29/25729) Air Foam Detector: Tested, Proper Function, pH Reading Extracorporeal Circuit Tested for Integrity: Yes Machine Conductivity: 13.8 Manual Conductivity: 13.8 Manual Ph: 7 Bleach Test (Neg): Yes Bath Temperature: 36 C (96.8 F) Conductivity Meter Serial #: [id number] Machine Functioning Alarm Free? Yes Dialysis Bath: K+ (Potassium): 3 Ca+ (Calcium): 2.5 Na+ (Sodium): 137 HCO3 (Bicarb): 35 Bicarbonate Concentrate Lot No.: [id number] Acid Concentrate Lot No.: [id number] Chlorine Testing - Before each treatment and [...] 210 mmHg 100 600 Yes Pt stable [id number]. Pt stable , sleeping 01/29/25 1018 400 [...] -- -- -- -- Tx completed [id number] Vital Signs Patient Vitals for the [...] lopressor. Report called to Ana Laura in [facility] Multiple attempts to help patient get comfortable. [...] Name: Jun Snyder Patient : 1965 Acct: [id number] Date of Admission: 01/19/2025 Room/Bed: T3-321/T3-321 A Code Status: Full Code Allergies: Allergies [...] failure with hypoxia (HCC) [J96.01] Tracheostomy care ([facility]) [Z43.0] 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HCC) longterm (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 Complication of tracheostomy [...] Lab Results Component Value Date/Time WBC 8.7 01/26/20258 HGB 8.9 (L) 01/26/2025 0952 HGB 9.4 11/11/2024 0230 HCT 28.4 (L) 01/26/2025 0952 PLT 265 01/26/2025 0248 NA 136 01/26/2025 0248 K 5.1 01/26/2025247 CL 100 01/26/2025247 CO2 20 (L) 01/26/2025247 BUN 19 01/26/20258 CREATININE 3.37 (H) 01/26/2025247 CREATININE 9.99 (H) 10/27/2019 0545 CALCIUM 9.0 01/26/2025247 PHOS 5.3 (H) 01/26/2025247 IV Drips and Rate/Dose heparin, 5-30 Units/kg/hr, Last Rate: 7 Units/kg/hr (01/26/251218) sodium chloride, 20 mL/hr, Last Rate: 20 mL/hr (01/25/252003) Safety - Before each treatment: Dialysis Machine No.: [id number] RO Machine Number: [id number] Dialyzer Lot No.: [id number] Tubing Lot Number: [id number] All Connections Secure: Yes Venous Parameters Set: Yes Arterial Parameters Set: Yes NS Bag: Yes Saline Line Double Clamped: Yes Dialyzer: Nipro Prime Volume (mL): 200 mL RO Machine Number: [id number] RO Machine Log Sheet Completed: Yes Machine Alarm Self Test: Completed, Passed (1226) (01/26/25 1226) Air Foam Detector: Tested, Proper Function, pH Reading Extracorporeal Circuit Tested for Integrity: Yes Machine Conductivity: 13.9 Manual Conductivity: 14 Manual Ph: 7.4 Bleach Test (Neg): Yes Bath Temperature: 36 C (96.8 F) Conductivity Meter Serial #: [id number] Machine Functioning Alarm Free? Yes Dialysis Bath: K+ (Potassium): 2 Ca+ (Calcium): 2.5 Na+ (Sodium): 137 HCO3 (Bicarb): 35 Bicarbonate Concentrate Lot No.: [id number] Acid Concentrate Lot No.: [id number] Chlorine Testing - Before each treatment and every 4 hours: Time On: 1245 Time Off: 1215 Treatment Goal: 2L Weight Height: 177.8 cm (5' 10) (01/24/25 1321) Weight: 58.9 kg (129 lb 13.6 oz) (01/19/25 0657) BMI (Calculated): 18.63 (01/19/25 0657) 1st check: less than 0.1 ppm at: [...] Yes Pt playing on phone, UF removed 1806 01/26/25 1530 400 mL/min 860 ml/hr -120 mmHg 210 mmHg 70 600 Yes Pt tolerating tx well, UF removed 19301/26/25 1545 220 mL/min -- -- -- -- -- -- tx completed, UF [id number] Vital Signs Patient Vitals for the past [...] Name: Jun Snyder Patient : 1965 Acct: [id number] Date of Admission: 01/19/2025 Room/Bed: T3-321/T3-321 A Code Status: Full Code Allergies: Allergies Allergen Reactions Lisinopril Swelling and Angioedema Diagnosis: Patient Active Problem List Diagnosis Anemia Paroxysmal A-fib (CMS/HCC) (HCC) HTN (hypertension) ESRD on hemodialysis ([facility]) ([facility]) 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 Diverticulosis Nonrheumatic aortic valve stenosis Calcification of abdominal aorta (HCC) Missed vaccination due to patient refusal Tobacco abuse Alcohol use disorder in remission Atrial flutter, unspecified type (HCC) RSV (acute bronchiolitis due to respiratory syncytial virus) Aortic stenosis Upper GI bleed S/P AVR Acute hypoxic respiratory failure ([facility]) Acute encephalopathy Pneumoperitoneum Gastric ulceration Severe malnutrition (CMS/HCC) (HCC) Pleural effusion Peritonitis due to fungus (HCC) History of abdominal surgery Leg DVT (deep venous thromboembolism), acute, left (HCC) 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, 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) 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[facility]) Leukocytosis Decubitus ulcer of sacral region, unstageable (HCC) Pneumonia of both lungs due to methicillin susceptible Staphylococcus aureus (MSSA) ([facility]) Sacral osteomyelitis ([facility]/HCC) ([facility]) Acute respiratory failure with hypoxia ([facility]) [J96.01] Tracheostomy care ([facility]) [Z43.0] 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[facility]) 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 Complication of tracheostomy ([facility]/HCC) ([facility]) BRBPR (bright red blood per rectum) Treatment: [...] - Before each treatment: Dialysis Machine No.: [id number] RO Machine Number: [id number] Dialyzer Lot No.: [id number] Tubing Lot Number: [id number] All Connections Secure: Yes Venous Parameters Set: Yes Arterial Parameters Set: Yes NS Bag: Yes Saline Line Double Clamped: Yes Dialyzer: Nipro Prime Volume (mL): 200 mL RO Machine Number: [id number] RO Machine Log Sheet Completed: Yes Machine Alarm Self Test: Completed, Passed (test passed at 09) (01/24/25924) Air Foam Detector: Tested, Proper Function, pH Reading Extracorporeal Circuit Tested for Integrity: Yes Machine Conductivity: 13.8 Manual Conductivity: 13.8 Manual Ph: 7.2 Bleach Test (Neg): Yes (water check negative at 0910) Bath Temperature: 36 C (96.8 F) Conductivity Meter Serial #: [id number] Machine Functioning Alarm Free? Yes Dialysis Bath: K+ (Potassium): 3 Ca+ (Calcium): 2.5 Na+ (Sodium): 137 HCO3 (Bicarb): 35 Bicarbonate Concentrate Lot No.: [id number] Acid Concentrate Lot No.: [id number] Chlorine Testing - Before each treatment and [...] (Pt threw up clear liquid) Provider Name: Eric Provider Role: Resident Method of Communication: Secure [...] Name: Jun Snyder Patient : 1965 Acct: [id number] Date of Admission: 01/19/2025 Room/Bed: T3-321/T3-321 A Code Status: Full Code Allergies: Allergies Allergen Reactions Lisinopril Swelling and Angioedema Diagnosis: Patient Active Problem List Diagnosis Anemia Paroxysmal A-fib ([facility]) (HCC) HTN (hypertension) ESRD on hemodialysis ([facility]) ([facility]) 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 [...] failure with hypoxia (HCC) [J96.01] Tracheostomy care ([facility]) [Z43.0] 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HCC) longterm (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 Complication of tracheostomy (CMS/HCC) ([facility]) Treatment: Hemodialysis 1:1 Priority: Routine Location: ICU [...] Lab Results Component Value Date/Time WBC 10.6 01/22/2025 0419 HGB 8.0 (L) 01/22/2025 0419 HGB 9.4 11/11/2024 0230 HCT 25.1 (L) 01/22/2025 0419 PLT 330 01/22/2025 0419 NA 132 (L) 01/22/2025 0419 K 4.4 01/22/2025 0419 CL 94 (L) 01/22/2025 041 CO2 25 01/22/2025 0419 BUN 53 (H) 01/22/2025 0419 CREATININE 4.18 (H) 01/22/2025 041 CREATININE 9.99 (H) 10/27/2019 0545 CALCIUM 9.8 01/22/2025 041 PHOS 6.8 (H) 01/22/2025 0419 IV Drips and Rate/Dose Safety - Before each treatment: Dialysis Machine No.: [id number] RO Machine Number: [id number] Dialyzer Lot No.: [id number] Tubing Lot Number: [id number] All Connections Secure: Yes Venous Parameters Set: Yes Arterial Parameters Set: Yes NS Bag: Yes Saline Line Double Clamped: Yes Dialyzer: Nipro Prime Volume (mL): 250 mL RO Machine Number: [id number] RO Machine Log Sheet Completed: Yes Machine Alarm Self Test: Completed, Passed (01/22/25850) Air Foam Detector: Tested, Proper Function, pH Reading Extracorporeal Circuit Tested for Integrity: Yes Machine Conductivity: (13.8) Manual Conductivity: 14 Manual Ph: 7.2 Bleach Test (Neg): Yes Bath Temperature: 36 C (96.8 F) Conductivity Meter Serial #: [id number] Machine Functioning Alarm Free? Yes Dialysis Bath: K+ (Potassium): 2 Ca+ (Calcium): 2.5 Na+ (Sodium): 137 HCO3 (Bicarb): 35 Bicarbonate Concentrate Lot No.: [id number] Acid Concentrate Lot No.: [id number] Chlorine Testing - Before each treatment and [...] Name: Jun Snyder Patient : 1965 Acct: [id number] Date of Admission: 01/19/2025 Room/Bed: [facility] A Code Status: Full Code Allergies: Allergies Allergen Reactions Lisinopril Swelling and Angioedema Diagnosis: Patient Active Problem List Diagnosis Anemia Paroxysmal A-fib ([facility]) ([facility]) HTN (hypertension) ESRD on hemodialysis ([facility]) ([facility]) 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 Diverticulosis Nonrheumatic aortic valve stenosis Calcification of abdominal aorta ([facility]) Missed vaccination due to patient refusal Tobacco abuse Alcohol use disorder in remission Atrial flutter, unspecified type ([facility]) RSV (acute bronchiolitis due to respiratory syncytial virus) Aortic stenosis Upper GI bleed S/P AVR Acute hypoxic respiratory failure ([facility]) Acute encephalopathy Pneumoperitoneum Gastric ulceration Severe malnutrition (CMS/HCC) (HCC) Pleural effusion Peritonitis due to fungus (HCC) History of abdominal surgery Leg DVT (deep venous thromboembolism), acute, left (HCC) 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, 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) 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[facility]) Leukocytosis Decubitus ulcer of sacral region, unstageable ([facility]) Pneumonia of both lungs due to methicillin susceptible Staphylococcus aureus (MSSA) ([facility]) Sacral osteomyelitis ([facility]) ([facility]) Acute respiratory failure with hypoxia ([facility]) [J96.01] Tracheostomy care ([facility]) [Z43.0] 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[facility]) 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 Complication of tracheostomy ([facility]) ([facility]) Treatment: Hemodialysis 1:1 Priority: Routine Location: Bedside Diabetic: Yes NPO: Yes Isolation Precautions: Contact Consent for Treatment Verified: Yes Blood Consent Verified: Not Applicable ICEBOAT: Identify, Consent, Equipment, HepB Status, Orders Complete, Access Verified, Timeliness Second Clinician Verifying: Robbie Beltran RN Time out performed prior to access at 1015. Report Received from Primary RN at 0900. Primary RN (First Initial, Last Name, Title): P, Kray, RN Incapacitated Nurse Education Completed: Yes P.K. [...] Results Component Value Date/Time WBC 10.5 01/20/2025 0514 HGB 8.2 (L) 01/20/2025 0801 HGB 9.4 11/11/2024 0230 HCT 25.8 (L) 01/20/2025 0801 PLT 279 01/20/2025 0514 NA 135 (L) 01/20/2025 0514 K 4.8 01/20/2025 0514 CL 98 01/20/2025 0514 CO2 22 01/20/202514 BUN 91 (H) 01/20/202514 CREATININE 4.31 (H) 01/20/2025513 CREATININE 9.99 (H) 10/27/2019544 CALCIUM 9.2 01/20/2025513 PHOS 6.1 (H) 01/20/2025513 IV Drips and Rate/Dose pantoprazole (ProtoNix) 80 mg in sodium chloride 0.9 % 100 mL (0.8 mg/mL) infusion, 8 mg/hr Safety - Before each treatment: Dialysis Machine No.: [id number] RO Machine Number: [id number] Dialyzer Lot No.: [id number] Tubing Lot Number: [id number] All Connections Secure: Yes Venous Parameters Set: Yes Arterial Parameters Set: Yes NS Bag: Yes Saline Line Double Clamped: Yes Dialyzer: Nipro Prime Volume (mL): 200 mL RO Machine Number: [id number] RO Machine Log Sheet Completed: Yes Machine Alarm Self Test: Completed, Passed (1000) (01/20/25 1000) Air Foam Detector: Tested, Proper Function, pH Reading Extracorporeal Circuit Tested for Integrity: Yes Machine Conductivity: 13.6 Manual Conductivity: 13.8 Manual Ph: 7.2 Bleach Test (Neg): Yes Bath Temperature: 36 C (96.8 F) Conductivity Meter Serial #: [id number] Machine Functioning Alarm Free? Yes Dialysis Bath: K+ (Potassium): 2 Ca+ (Calcium): 2.5 Na+ (Sodium): 137 HCO3 (Bicarb): 35 Bicarbonate Concentrate Lot No.: [id number] Acid Concentrate Lot No.: [id number] Chlorine Testing - Before each treatment and [...] 80 600 Yes ID at bedside, UF [id number] 01/20/25 1130 400 mL/min 600 ml/hr -140 mmHg 210 mmHg 80 600 Yes Primary RN at bedside, blood clots noted coming from rectum, GI aware, UF removed 586. 01/20/25 1145 400 mL/min 600 ml/hr -140 mmHg 220 mmHg 80 600 Yes Primary RN at bedside, [email or web address] givenat this time, UF removed 726 01/20/25 [...] -- 91 -- -- 01/20/25 1100 (!) 9247 -- -- 90 -- -- 01/20/25 1045 [...] Critical lab value (Hgb 6.6) Provider Name: [facility] fruit or nut farmer ATT Provider Role: Attending physician Method of Communication: Secure chat Response: Waiting for response Notification Date: 01/20/25 Notification Time: 06 Reason for Communication: Critical lab value (Hgb [...] Education: Verbalized Understanding documented in this encounter [facility] 02-01-2025 Miscellaneous Notes Formattin g of this note might be different from the original. 7000 created in [facility] per T[facility] request. Facility notified via [facility]. Authorization approved for the [facility] through 02/02/25, discharge orders placed, ROSENDO completed. Transportation placed and confirmed for today 02/01/25 at 330pm to the [facility], physician/patient/legal administrative secretary/RN aware. DRAINAGE ENGINEER tasked to send 7000 and DC summary. Hep B panels, 3 days of HD flowsheets, MAR and OPAT sent to the [facility] via [facility]. Call placed to the [facility] to confirm able to still take patient [...] Nutrition Support Outcome: Progressing Updates [facility]. Await review and response regarding ability to accept. TCC notified. Electronically signed by [facility] Sabino Rodrigues Problem: Pain - Adult Goal: Verbalizes/displays adequate [...] Nutrition Support Outcome: Progressing Message sent to Pallet Repairer to start [facility] auth for [facility]. Problem: Pain - Adult Goal: Verbalizes/displays [...] order to start auth to return to [facility] per previous TCC note of plan. Updates [...] or Improved Outcome: Progressing Updates placed to [facility] request. Await review and response regarding ability to accept. TCC notified. Tasked [facility] to send updates to [facility], per their request. Warfarin bridging per MD notes, patient will need NEW auth for return to [facility]. Problem: Pain - Adult Goal: Verbalizes/displays adequate [...] 01/28/2025354 by Jun Schafer RN Outcome: Progressing 01/28/2025 023 by Jun Schafer RN Outcome: Progressing Problem: [...] baseline comfort level Outcome: Progressing Flowsheets (Taken 01/26/2025799) Verbalizes/displays adequate comfort level or baseline comfort [...] from fall injury Outcome: Progressing Flowsheets (Taken 01/26/2025799) Free from fall injury: Instruct family/caregiver on patient safety Based on caregiver fall risk screen, instruct family/caregiver to ask for assistance with transferring if caregiver noted to have fall risk factors Problem: Discharge Planning Goal: Discharge to home or other facility with appropriate resources Outcome: Progressing Problem: Chronic Conditions and Co-morbidities Goal: Patient's chronic conditions and co-morbidity symptoms are monitored and maintained or improved Outcome: Progressing Flowsheets (Taken 01/26/2025799) Care Plan - Patient's Chronic Conditions and [...] Nutrition Support Outcome: Progressing Dialysis placed to [facility] via [facility] per TCC request. Care Management Progress Note PCU transfer pending. Received one unit PRBC this AM for low Hgb. HD today. Heparin drip ongoing. IVAB (plan for 6 week course). Wound vac to sacral wound. Room Air. Dysphagia diet; pureed. DC plan - [facility]. Facility updated via careport. DRAINAGE ENGINEER asked to send dialysis note per their [...] - Payne indicated: N/A OPAT placed to [facility] via [facility] per TCC request. 01/25/25 1047 Rapid Rounds Attendance Wrecking Crane Engine Operator Planned Discharge Disposition SNF Today we still await Administering IV medications;Marketing Support Manager recommendations (comment);Clinical stability;Symptomatic control;Post-discharge arrangement completion (comment) Patient remains on MICU. S/P colonoscopy 01/24-negative for active bleeding. Heparin drip resumed post procedure. Wound vac to sacral wound; IVAB till 02/13; OPAT under chart review > media. Plan for MBSS. Room Air. DC plan - [facility] when medically appropriate. CM will continue to [...] Interventions Goal: Nutrition Support Outcome: [facility] Patient Name: Jun Snyder Procedure Date: 01/24/2025 12:37 PM Gender: Male Date of : 1965 Age: 59 Admit Type: Inpatient Note Status: Finalized Endoscopist: Chadd Davis MD, [id number] Procedure: Colonoscopy Indications: Evaluation of unexplained GI [...] by the physician, the nurse and the auto vinyl top installer in the pre-procedure area in the procedure [...] anticoagulant use Procedure Code(s): --- Professional --- 27440, Colonoscopy, flexible; diagnostic, including collection of specimen(s) by brushing or washing, when performed (separate procedure) --- Technical --- 18904, Colonoscopy, flexible; diagnostic, including collection of specimen(s) by brushing or washing, when performed (separate procedure) Diagnosis Code(s): --- Professional --- K64.0, First degree hemorrhoids K92.1, Melena (includes Hematochezia) Z79.01, longterm (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 anticoagulants K57.30, Diverticulosis of large intestine without perforation or abscess without bleeding --- Technical --- K64.0, First degree hemorrhoids K92.1, Melena (includes Hematochezia) Z79.01, longterm (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 anticoagulants K57.30, Diverticulosis of large intestine without perforation or abscess without bleeding CPT copyright 2021 [employer]. All rights reserved. The codes documented in this report are preliminary and upon waste collection driver review may be revised to meet current [...] Early Mobility/Exercise Safety Screen: Activity: Bed mobility -[facility] Score: Lying in bed LDAs Peripheral [...] Note: Diagnosis: Principal Problem: Complication of tracheostomy ([facility]) ([facility]) Active Problems: Severe malnutrition ([facility]) ([facility]) Chief Complaint: Jun Snyder is a 59 y.o. male with chief complaint of: trach complications, OM from decub Reason Palliative Following:Goals of Care Plan:Ongoing Goals of Care Discussions and Support Code Status: Full Code Medications: Palliative Care Not Managing Any Medications Nursing: Longterm Care and Skin Integrity Social Work: Palliative [...] care team, reviewed Health Care Power of [place] (HCPOA) with patient. Patient agreeable to complete HCPOA chose to name ko Snyder as primary agent and named his sig other Toma Tarun as first alternate. Patient did not name [...] SW; ko Nelson primary agent and laurence Chua, secondary agent. DC plan - return to [facility]. CM will continue to follow Length of Stay (Days): 1 GMLOS: 4.5 Images from the original note were not included. [facility] Palliative Care Transitions of Care Note Jun Snyder : 1965 ADMIT DATE: 01/19/2025 DISCHARGE DATE: TBD PRIMARY CARE PHYSICIAN: Leilani Troncoso CODE STATUS: Full Code DISCHARGE DIAGNOSES: Principal Problem: Complication of tracheostomy (CMS/HCC) ([facility]) Active Problems: Severe malnutrition (CMS/HCC) ([facility]) BRBPR (bright red blood per rectum) HOSPITAL [...] to have bile peritonitis 11/28/24: transferred to [facility] He ended up developing sacral ulcer and osteomyelitis at [facility]. He then ended up dislodging his tracheostomy, and was brought to [facility] ED for further care. Palliative care consulted for goals of care. Goals of care - Patient has capacity to make medical decisions - legal surrogate decision maker [place] Omar, 1st alternate is significant other Toma - goals of care include: 1) to continue current management, continue with aggressive medical therapy, procedures, antibiotics at this time - [facility] - will forward chart to Palliative [...] AV replacement Supratherapeutic INR - [facility] Director valve in 09/2024 - coumadin held due to bleeding and supratherapeutic levels Chronic respiratory failure s/p tracheostomy Tracheostomy dislodgement - has been saturating well without trach on RA so has not been replaced FOLLOW UP TESTING, PENDING RESULTS OR REFERRALS AT TRANSITIONAL CARE VISIT: No DISPOSITION: Skilled Rehab Facility FACILITY/HOME CARE AGENCY NAME: [facility] Follow up with Palliative Care on patient [...] Sedation Goal: deep Procedure: EGD Proceduralist: Dr. Samiullah Indication: GIB Time Out: Completed immediately prior [...] Safety: The patient was placed on a superintendent fish hatchery and vital signs, pulse oximetry, and level [...] as signed by this procedure note. [facility] Patient Name: Jun Snyder Procedure Date: 01/21/2025 9:59 AM Gender: Male Date of : 1965 Age: 59 Admit Type: Inpatient Note Status: Finalized Endoscopist: ELDON Alba MD, [id number] Procedure: Upper GI endoscopy Indications: Acute post [...] by the physician, the nurse and the auto vinyl top installer in the pre-procedure area in the procedure [...] loss: None. Procedure Code(s): --- Professional --- 70985, Esophagogastroduodenoscopy, flexible, transoral; diagnostic, including collection of specimen(s) by brushing or washing, when performed (separate procedure) --- Technical --- 73001, Esophagogastroduodenoscopy, flexible, transoral; diagnostic, including collection of [...] D62, Acute posthemorrhagic anemia CPT copyright 2021 [employer]. All rights reserved. The codes documented in this report are preliminary and upon waste collection driver review may be revised to meet current [...] Care Plan Patient was transferred over from [facility] after self-dislodged tracheostomy this morning around 0600. [...] his airway and need for redo tracheostomy. ANTHONY Bey MD General Surgery PGY-2 Pager [phone] [...] nutritional needs Recent Flowsheet Documentation Taken 01/19/2025 08 by Shannen Fields RN Nutrient intake appropriate for improving, restoring, or maintaining nutritional needs: Assess nutritional status and recommend course of action Monitor oral intake, labs, and treatment plans Return referral placed to [facility] via [facility]port per TCC request. Await review and response regarding ability to accept. TCC notified. 01/19/25 1300 Rapid Rounds Attendance Wrecking Crane Engine Operator Planned Discharge Disposition SNF Today we still await Clinical stability;Marketing Support Manager recommendations (comment);Symptomatic control;Post-discharge arrangement completion (comment) Patient admitted due to trach dislodgement. Patient was discharged from LT[facility] to the [facility]; there only a matter of hours per [...] He would like patient to return to [facility] is able at DC. Does not want patient to return to [facility]. DRAINAGE ENGINEER asked to place referral to [facility]. CM will continue to follow for DC [...] improved Outcome: Progressing documented in this encounter [facility] 02-01-2025 History of Presen t illness Narrative Images from the original note were not included. [facility] - Infectious Diseases Advanced Practice [...] negative 01/22 A baumannii screen: negative Previous ([facility]) 01/02- sacral wound cx- E faecalis (Amp-S), [...] Percutaneous gastrostomy tube. Additional findings, as above. 4/30 CXR 1. Median sternotomy and valve repair. [...] use of antimicrobials. Mikala MORAN PA-C [facility] [place] Nephrology Progress Note Following for [...] not included. Speech-Language Pathology SPEECH LANGUAGE PATHOLOGY [facility] Dysphagia Treatment Note Patient Name: Jun Snyder [...] strategies. Plan & Recommendations Plan: Continue acute PRACTICE DIRECTOR therapy per initial plan of care [...] Expected End: 02/02/25 Resolved: 01/25/25 Therapy Time PRACTICE DIRECTOR Individual Minutes Time In: 816 Time Out: 829 Minutes: 13 KARLA Salazar Hospitalist Progress Note Subjective: Admit Date: 01/19/2025 PCP: Leilani Troncoso Room#: 1C-144/1C-144 A Chief Complaint Patient presents with Tracheostomy Tube Change Brief Hospital course: Jun Snyder is a 59 y.o. male who who presented to [facility] 01/19 after inadvertent removal of his tracheostomy. He was transferred to [facility] ICU for surgical evaluation. On arrival he [...] line on 01/29 Nephrology following, on dialysis PRACTICE DIRECTOR following PT/OT recommends SNF Patient will [...] History: Diagnosis Date Acute renal failure (ARF) ([facility]) 10/19/2019 Anemia 12/30/2021 Calcification of abdominal aorta ([facility]) 10/08/202309/[address] abd Diverticulosis 10/08/2023 ESRD on hemodialysis ([facility]) ([facility]) 10/26/2019 Hemodialysis patient ([facility]) ([facility]) HTN (hypertension) 12/01/2022 Hypertension IgA nephropathy 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 10/26/2019 Missed vaccination due to patient refusal 10/08/2023 Has a number of non-scientific based beliefs which interfere with his understanding and acceptance of the medical benefit of vaccination. Nonrheumatic aortic valve stenosis 10/08/2023 Paroxysmal A-fib ([facility]) ([facility]) 08/18/2023 Tobacco abuse 10/08/2023 Adult diet Dysphagia [...] 20 mL/hr, Last Rate: 20 mL/hr (01/30/25 6081) Assessment Data: (CAT1) Reviewed 2 notes from [...] by ID -S/p tunneled central line placement -PRACTICE DIRECTOR follow, dysphagia diet -PT OT DC [...] MD Division of Hospital Medicine Inpatient Medical Services/[facility] Anticoagulation Management Service ([facility]) Inpatient Warfarin Consult HPI: Jun Snyder is a 59 y.o. male admitted on 01/19/2025 for Complication of tracheostomy ([facility] ([facility]) [J95.00] Past Medical History: Diagnosis Date Acute renal failure (ARF) ([facility]) 10/19/2019 Anemia 12/30/2021 Calcification of abdominal aorta ([facility]) 10/08/202309/[address] abd Diverticulosis 10/08/2023 ESRD on hemodialysis ([facility]) ([facility]) 10/26/2019 Hemodialysis patient ([facility]) ([facility]) HTN (hypertension) 12/01/2022 Hypertension IgA nephropathy 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 10/26/2019 Missed vaccination due to patient refusal 10/08/2023 Has a number of non-scientific based beliefs which interfere with his understanding and acceptance of the medical benefit of vaccination. Nonrheumatic aortic valve stenosis 10/08/2023 Paroxysmal A-fib ([facility]) ([facility]) 08/18/2023 Tobacco abuse 10/08/2023 Patient is on [...] Dose 02/01 2.0 0.5mg 01/31 2.2 0.5mg 56 2.5 HOLD 5 2.4 Held 01/28 2.2 0.5mg 01/27 1.9 [...] dose accordingly 3. Will facilitate f/u at [facility] upon discharge Tiffanie Dial RPh [facility] is available daily [phone] via [employer]. If no response on [employer] Chat then please page [phone]. Images from the original note were not included. OCCUPATIONAL THERAPY [facility] Re-Evaluation Name/MRN: Jair Snyder ([id number]) Evaluation Date: 01/31/2025 Date of : 1965 Admission Date: 01/19/2025 2:13 AM Age: 59 y.o. Room/Bed: 1C-144/1C144 A Discharge Recommendation: Longterm Facility Other: DME TBD Assessment IMPRESSION: OT [...] History: Diagnosis Date Acute renal failure (ARF) ([facility]) 10/19/2019 Anemia 12/30/2021 Calcification of abdominal aorta ([facility]) 10/08/202309/[address] abd Diverticulosis 10/08/2023 ESRD on hemodialysis ([facility]) ([facility]) 10/26/2019 Hemodialysis patient ([facility]) ([facility]) HTN (hypertension) 12/01/2022 Hypertension IgA nephropathy 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 10/26/2019 Missed vaccination due to patient refusal 10/08/2023 Has a number of non-scientific based beliefs which interfere with his understanding and acceptance of the medical benefit of vaccination. Nonrheumatic aortic valve stenosis 10/08/2023 Paroxysmal A-fib ([facility]) ([facility]) 08/18/2023 Tobacco abuse 10/08/2023 Past Surgical History: Past Surgical History: Procedure Laterality Date APPENDECTOMY CARDIAC CATHETERIZATION N/A 10/09/2024 Performed by Bob Watson MD at [facility] Cardiac Cath/EP Lab CARDIAC CATHETERIZATION Bilateral 11/01/2024 Performed by Bob Watson MD at [facility] Cardiac Cath/EP Lab CARDIAC CATHETERIZATION N/A 11/01/2024 Performed by Bob Watson MD at [facility] Cardiac Cath/EP Lab COLONOSCOPY N/A 01/24/2025 Performed by Chadd Davis MD at [facility] ENDOSCOPY FISTULAGRAM (HISTORICAL) Left 09/15/2021 LEFT UPPER ARM HX AV FISTULA CREATION IR EMBOLIZATION 10/14/2024 IR EMBOLIZATION 10/14/2024 [facility] SPECIAL PROCEDURES IR FISTULAGRAM 08/07/2022 IR FISTULAGRAM 08/07/2022 [facility] IR IMAGING TONSILLECTOMY (HISTORICAL) Admission Diagnosis: Patient Active Problem List Diagnosis Date Noted Severe malnutrition ([facility]) ([facility]) 01/19/2025 Complication of tracheostomy ([facility]) ([facility]) 01/19/2025 longterm (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 01/12/2025 Acute respiratory failure with hypoxia ([facility]) [J96.01] 01/08/2025 Tracheostomy care ([facility]) [Z43.0] 01/08/2025 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[facility]) 01/08/2025 Sacral osteomyelitis ([facility]) ([facility]) 01/03/2025 Pneumonia of both lungs due to methicillin susceptible Staphylococcus aureus (MSSA) ([facility]) 01/01/2025 Leukocytosis 12/30/2024 Decubitus ulcer of sacral region, unstageable ([facility]) 12/30/2024 Peritonitis due to fungus ([facility]) 11/30/2024 History of abdominal surgery 11/30/2024 Leg DVT (deep venous thromboembolism), acute, left ([facility]) 11/30/2024 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, 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 of skin ([facility]) 11/30/2024 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[facility]) 11/30/2024 Pleural effusion 11/28/2024 Gastric ulceration 2024 Atrial flutter, unspecified type ([facility]) 10/03/2024 RSV (acute bronchiolitis due to respiratory syncytial virus) 10/03/2024 Diverticulosis 10/08/2023 Nonrheumatic aortic valve stenosis 10/08/2023 Calcification of abdominal aorta ([facility]) 10/08/2023 Missed vaccination due to patient refusal 10/08/2023 Tobacco abuse 10/08/2023 Alcohol use disorder in remission 10/08/2023 Paroxysmal A-fib ([facility]) ([facility]) 08/18/2023 HTN (hypertension) 12/01/2022 ESRD on hemodialysis ([facility]) ([facility]) 10/26/2019 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 10/26/2019 BRBPR (bright red blood per rectum) 01/19/2025 Aortic stenosis 10/03/2024 Upper GI bleed 10/03/2024 S/P AVR 10/03/2024 Acute hypoxic respiratory failure ([facility]) 10/03/2024 Acute encephalopathy 10/03/2024 Pneumoperitoneum 10/03/2024 Anemia [...] In 1556 Time Out 1606 Minutes 10 [place]NA Ramirez Patient's Occupational Therapy Plan of Care supervision is transferred to a [facility] Occupational Therapist. Goals and/or treatment plan was established in collaboration with patient/family/other representatives. Images from the original note were not included. Speech-Language Pathology SPEECH LANGUAGE PATHOLOGY [facility] Dysphagia Treatment Note Patient Name: Jun Snyder Evaluation Date: 01/31/2025 Date of : 1965 Admission Date: 01/19/2025 2:13 AM Age: 59 y.o. [facility] A Subjective Patient alert and cooperative. Seen [...] diet and for oropharyngeal strengthening. Continue acute PRACTICE DIRECTOR therapy per initial plan of care [...] Expected End: 02/02/25 Resolved: 01/25/25 Therapy Time PRACTICE DIRECTOR Individual Minutes Time In: 1454 Time Out: 1515 Minutes: 21 FRANKLIN Carmona Images from the original note were not included. OCCUPATIONAL THERAPY [facility] Name/MRN: Jair Snyder ([id number]) Date: 01/31/2025 Attempted OT re-eval once pt returned from dialysis, pt very fatigued. Initially responsive to OT then stops conversing and unable to remain roused. Will follow and attempt as able. RONNY Ramirez/Tameka Images from the original note were not included. [facility] - Infectious Diseases Advanced Practice Provider Progress [...] normal. Behavior: Behavior normal. Labs: Recent Labs 01/29/2533601/30/25 0047 01/31/25 0010 NA [...] negative 01/22 A baumannii screen: negative Previous ([facility]) 01/02- sacral wound cx- E faecalis (Amp-S), [...] use of antimicrobials. Mikala MORAN PA-C [facility] [place]ious Disease Images from the original note were not included. OCCUPATIONAL THERAPY [facility] Name/MRN: Jair Snyder ([id number]) Date: 01/31/2025 Attempted OT re-eval this AM, pt OOR at dialysis. Will follow and re-attempt as able. RONNY Ramirez/Tameka Nephrology Progress Note Following for ESRD Pt [...] any questions or concerns Bree Molina APRN WHITE SHOE RAGGER A-G MIL[employer]NOLOGY SPECIALIST [facility] [phone] Pt seen and examined independently by me. I reviewed with DENIA-WHITE SHOE RAGGER the medical history and the findings on physical examination. I discussed the patient s diagnosis and concur with the treatment plan as documented in his note. Please call [phone] or message me through [employer] with any questions or concerns. [facility] Anticoagulation Management Service ([facility]) Inpatient Warfarin Consult HPI: Jun Snyder is a 59 y.o. male admitted on 01/19/2025 for Complication of tracheostomy ([facility]) ([facility]) [J95.00] Past Medical History: Diagnosis Date Acute renal failure (ARF) ([facility]) 10/19/2019 Anemia 12/30/2021 Calcification of abdominal aorta ([facility]) 10/08/202309/[address] abd Diverticulosis 10/08/2023 ESRD on hemodialysis ([facility]) ([facility]) 10/26/2019 Hemodialysis patient ([facility]) ([facility]) HTN (hypertension) 12/01/2022 Hypertension IgA nephropathy 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 10/26/2019 Missed vaccination due to patient refusal 10/08/2023 Has a number of non-scientific based beliefs which interfere with his understanding and acceptance of the medical benefit of vaccination. Nonrheumatic aortic valve stenosis 10/08/2023 Paroxysmal A-fib ([facility]) ([facility]) 08/18/2023 Tobacco abuse 10/08/2023 Patient is on [...] 01/31/25 0010 INR 2.2* Date INR Dose 7 2.2 0.5mg 5/6 2.5 HOLD 55 2.4 Held 5 2.2 0.5mg 5/3 1.9 1mg 5/2 1.8 1 mg 01/25 1.7 0.5 mg 01/24 1.5 1mg 01/23 2.0 HOLD 01/22 8.1/3.1 HOLD vitamin K 2.5mg PO 01/21 7.9 Held 01/20 --- Held 01/19 2.7 HOLD Assessment/Plan: 1. INR is therapeutic. Line inserted yesterday so will give 0.5mg warfarin today 2. Monitor for s/s of bleeding and drug interactions. Will adjust dose accordingly 3. Will facilitate f/u at [facility] upon discharge Tiffanie Dial RPh [facility] is available daily [phone] via [employer]. If no response on [employer] Chat then please page [phone]. Hospitalist Progress Note Subjective: Admit Date: 01/19/2025 PCP: Leilani Troncoso Room#: 1C-144/1C-144 A Chief Complaint Patient presents with Tracheostomy Tube Change Brief Hospital course: Jun Snyder is a 59 y.o. male who who presented to [facility] 01/19 after inadvertent removal of his tracheostomy. He was transferred to [facility] ICU for surgical evaluation. On arrival he [...] line on 01/29 Nephrology following, on dialysis PRACTICE DIRECTOR following PT recommends SNF Interval History: 01/31/2025-No overnight issues. Patient is seen and examined Patient is resting in his bed Dialysis today Denies any new acute complaints Labs reviewed, ESRD picture, hemoglobin 8.8, stable Case and plan discussed with patient and bedside nurse. All questions answered. Past Medical History: Past Medical History: Diagnosis Date Acute renal failure (ARF) ([facility]) 10/19/2019 Anemia 12/30/2021 Calcification of abdominal aorta ([facility]) 10/08/202309/[address] abd Diverticulosis 10/08/2023 ESRD on hemodialysis ([facility] [facility]) 10/26/2019 Hemodialysis patient ([facility]) ([facility]) HTN (hypertension) 12/01/2022 Hypertension IgA nephropathy 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 10/26/2019 Missed vaccination due to patient refusal 10/08/2023 Has a number of non-scientific based beliefs which interfere with his understanding and acceptance of the medical benefit of vaccination. Nonrheumatic aortic valve stenosis 10/08/2023 Paroxysmal A-fib ([facility]) ([facility]) 08/18/2023 Tobacco abuse 10/08/2023 Adult diet Dysphagia - Pureed 24HR INTAKE/OUTPUT: Intake/Output Summary (Last 24 hours) at 01/31/2025 0836 Last data filed at 01/30/2025 2000 Gross per 24 hour Intake 360 ml Output -- Net 360 ml LABS: CBC: Recent Labs 01/29/25 0337 01/30/25 0047 01/30/25 1224 01/31/25 0010 WBC 9.4 8.8 -- 9.3 RBC 3.06* 3.15* -- 3.10* HGB 8.6* 8.7* 9.8* 8.8* HCT 27.3* 28.1* 31.5* 27.9* MCV 89.2 89.2 -- 90.0 RDW 19.0* 18.9* -- 19.2* PLT 271 276 -- 278 BMP: Recent Labs 01/29/25 0337 01/30/25 0047 01/31/25 0010 NA 134* 135* 138 K 3.7 3.7 4.3 CL 94* 99 99 CO2 23 23 27 BUN 21 10 15 CREATININE 4.17* 2.56* 3.64* GLUCOSE 80 88 87 CALCIUM 9.8 9.6 10.0 ANIONGAP 17* 13 12 LIVER PROFILE: Recent Labs 01/31/25 0010 AST 31 ALT 11 BILITOT 0.8 ALKPHOS 218* PROT 7.3 PT/INR: Recent Labs 01/29/25 0337 01/30/25 0047 01/31/25 0010 PROTIME 24.0* 24.9* 22.4* [...] mL/hr, Last Rate: 20 mL/hr (01/30/25 1838) Assessment Data: (CAT1) Reviewed 2 notes from [...] by ID -S/p tunneled central line placement -PRACTICE DIRECTOR follow, dysphagia diet -PT OT DC [...] Secondary Emergency Contact: [employer] Relation: Partner Barb Dawkins MD Division of Hospital Medicine Inpatient Medical Services/[facility] Anticoagulation Management Service ([facility]) Inpatient Warfarin Consult HPI: Jun Snyder is a 59 y.o. male admitted on 01/19/2025 for Complication of tracheostomy ([facility]) ([facility]) [J95.00] Past Medical History: Diagnosis Date Acute renal failure (ARF) ([facility]) 10/19/2019 Anemia 12/30/2021 Calcification of abdominal aorta ([facility]) 10/08/202309/[address] abd Diverticulosis 10/08/2023 ESRD on hemodialysis ([facility]) ([facility]) 10/26/2019 Hemodialysis patient ([facility]) ([facility]) HTN (hypertension) 12/01/2022 Hypertension IgA nephropathy 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 10/26/2019 Missed vaccination due to patient refusal 10/08/2023 Has a number of non-scientific based beliefs which interfere with his understanding and acceptance of the medical benefit of vaccination. Nonrheumatic aortic valve stenosis 10/08/2023 Paroxysmal A-fib ([facility]) ([facility]) 08/18/2023 Tobacco abuse 10/08/2023 Patient is on [...] 01/25 1.7 0.5 mg 01/24 1.5 1mg 4/29 2.0 HOLD 01/22 8.1/3.1 HOLD vitamin K 2.5mg PO 01/21 7.9 Held 01/20 --- Held 01/19 2.7 HOLD Assessment/Plan: 1. INR is therapeutic. Warfarin was held yesterday for planned tunneled line. Going for this procedure today, will continue to hold warfarin. Please notify [facility] when able to resume warfarin. 2. Monitor for s/s of bleeding and drug interactions. Will adjust dose accordingly 3. Will facilitate f/u at [facility] upon discharge Fatuma Odonnell RPh [facility] is available daily [phone] via [employer]. If no response on [employer] Chat then please page [phone]. Images from the original note were not included. OCCUPATIONAL THERAPY [facility] Name/MRN: Jair Snyder ([id number]) Date: 01/30/2025 Attempted OT services however, Pt [...] candidate for diet upgrade. Christina Limon MS, CCC/PRACTICE DIRECTOR Nutrition Assessment Type and Reason for [...] Severe who remains admitted after presenting to [facility] on 01/19 after inadvertent removal of his tracheostomy. He was transferred to [facility] ICU for surgical evaluation, however pt was maintaining appropriate O2 saturations on room air and the decision was made to leave the tracheostomy out. Pt transferred to [facility] later that day (01/19). Course c/b acute [...] MWF schedule with Nephrology following. Transferred to [facility] 01/27. ID continues following for sacral osteomyelitis and recs IV Unasyn x 6 weeks--> stop date 02/13. Course c/b anxiousness and paranoia, often refusing care and wound dressing changes. In terms of nutrition, pt was only receiving nutrition via PEG OFFICE ADMINISTRATION INSTRUCTOR. He was NPO 01/19, Nepro @ 50mls/hr initiated 01/20 which ran until pt was made NPO/CLD for colonoscopy prep 01/23. Remained NPO 01/24, underwent MBSS 01/25 with recs for pureed/thin which remains his current diet with PRACTICE DIRECTOR following and recommending the same. PO [...] Weight: 53.1 kg (117 lb 1 oz) (01/29 bed) Weight Source: Bed Scale Admission Body Weight: 58.5 kg (129 lb) (bedscale obtained 01/[address], no admit weight was obtained) Usual Body Weight: (per EPIC review --> 10/08/23: 207#, 11/12: 208#, 08/28: 206#, 10/04/24: 192#, 10/15: 207# bedscale, 10/31: 200#, 11/28: 161#, 01/18: 142#) [place] Body Weight (lbs) (Calculated): 166 lbs [place] Body Weight (Kg) (Calculated): 75 kg % [place] Body Weight (Calculated): 70.5 % BMI (kg/m2) [...] soon to determine Marilu Pollock RD Contact: *[phone] Images from the original note were not included. PHYSICAL THERAPY [facility] Treatment Note Name/MRN: Jair Snyder ([id number]) Date of : 1965 Age: 59 y.o. Room/Bed: 1C-144/1C-144 A Discharge Recommendation: Longterm Facility Other: tbd Assessment Pt requires mod [...] Timed Code Treatment Minutes: (2FA) Jocelin Ramirez OFFICE ADMINISTRATION INSTRUCTOR Cosigned by Betty Grady, PT at 01/30/2025 1:28 PM EDT Patient receiving other care, will attempt smoking cessation counseling at a later date. Images from the original note were not included. [facility] - Infectious Diseases Advanced Practice Provider Progress [...] F) Temporal 73 15 95 % -- 01/30/2513 -- -- -- -- 15 -- -- 01/30/25512 130/69 36.6 C (97.8 F) Temporal 79 -- 96 % -- 01/30/25 0051 134/65 36.5 C (97.7 F) Temporal 86 15 97 % -- 01/29/252028 115/67 37.1 C (98.7 F) Temporal 83 [...] Labs: Recent Labs 01/28/25 0632 01/29/25 0337 01/30/2546 NA 137 134* 135* K 3.6 3.7 3.7 CL 98 94* 99 CO2 26 23 23 BUN 14 21 10 CREATININE 3.37* 4.17* 2.56* GLUCOSE 82 80 88 CALCIUM 10.0 9.8 9.6 Recent Labs 01/28/25 0516 01/29/257 01/30/2546 WBC 9.8 9.4 8.8 HGB 8.5* 8.6* 8.7* HCT 26.3* 27.3* 28.1* PLT 240 271 276 Micro: 01/22 C auris screen: negative 01/22 A baumannii screen: negative Previous ([facility]) 01/02- sacral wound cx- E faecalis (Amp-S), skin ila, Clostridium clostrioforme 01/01- blood cx- 2/2 NG 12/30- blood cx- 2/2 NGTD 12/30- sputum cx- MSSA, resp ila 12/25- blood cx- 2/2 negative 12/14- sputum cx- MSSA, resp ila 12/14- MRSA pcr- MSSA 12/11- sputum cx- MSSA, resp ila Previous ([facility]) 11/28- L pleural fluid- negative 11/16- abd [...] of moderate complexity. Mikala MORAN PA-C [facility] [place]ious Disease Hospitalist Progress Note Subjective: Admit Date: 01/19/2025 PCP: Leilani Troncoso Room#: 1C-144/1C-144 A Chief Complaint Patient presents with Tracheostomy Tube Change Brief Hospital course: Jun Snyder is a 59 y.o. male who who presented to [facility] 01/19 after inadvertent removal of his tracheostomy. He was transferred to [facility] ICU for surgical evaluation. On arrival he was maintaining appropriate O2 saturations on room air and the decision was made to leave the tracheostomy out. Able to be transferred out of ICU later that day. On 01/20 critical care and GI were consulted due to rectal bleeding. At that time patient determined to be stable to remain on GMF. On the morning of 4/27, GI recommended ICU transfer for EGD which revealed non-bleeding duodenal ulcer. At that time patient's sacral wound was noted to be bleeding. Have been trending INR's and H&H, currently stable. Received one unit of FFP per ZOË panel on 01/26 with no further evidence of bleed. Resumed Heparin ggt bridge to warfarin. Underwent HD successfully. hemodynamically stable. Transferred out to [facility] 01/27 ID following for sacral osteomyelitis, s/p wound debridement to bone on 01/02, cultures grew E faecalis and Clostridium, continue with renally dosed ampicillin sulbactam for 6 weeks course through 02/13/2025, needs tunneled line, status post IR CVC tunneled line on 01/29 Nephrology following, on dialysis PRACTICE DIRECTOR following PT recommends SNF Interval History: [...] History: Diagnosis Date Acute renal failure (ARF) ([facility]) 10/19/2019 Anemia 12/30/2021 Calcification of abdominal aorta ([facility]) 10/08/202309/[address] abd Diverticulosis 10/08/2023 ESRD on hemodialysis ([facility]) ([facility]) 10/26/2019 Hemodialysis patient ([facility]) ([facility]) HTN (hypertension) 12/01/2022 Hypertension IgA nephropathy 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 10/26/2019 Missed vaccination due to patient refusal 10/08/2023 Has a number of non-scientific based beliefs which interfere with his understanding and acceptance of the medical benefit of vaccination. Nonrheumatic aortic valve stenosis 10/08/2023 Paroxysmal A-fib ([facility]) ([facility]) 08/18/2023 Tobacco abuse 10/08/2023 Adult diet Dysphagia [...] BMP: Recent Labs 01/28/25 0632 01/29/25 0337 01/30/2546 NA 137 134* 135* K 3.6 3.7 3.7 CL 98 94* 99 CO2 26 23 23 BUN 14 21 10 CREATININE 3.37* 4.17* 2.56* GLUCOSE 82 80 88 CALCIUM 10.0 9.8 9.6 ANIONGAP 13 17* 13 LIVER PROFILE:No results for input(s): AST, ALT, BILITOT, ALKPHOS, PROT in the last 72 hours. No lab exists for component: LABALBU PT/INR: Recent Labs 01/28/25 0516 01/29/257 01/30/2546 PROTIME 21.9* 24.0* 24.9* INR 2.2* 2.4* [...] by ID -S/p tunneled central line placement -PRACTICE DIRECTOR follow, dysphagia diet -PT OT DC [...] MD Division of Hospital Medicine Inpatient Medical Services/[facility] Nephrology Progress Note Mr. Jun Snyder is [...] concerns. Wellington Nicole MD 01/30/2025 9:08 AM [facility] [address], [address] [place] [address] Office: [phone] Images from the original note were not included. Speech-Language Pathology SPEECH LANGUAGE PATHOLOGY [facility] Dysphagia Treatment Note Patient Name: Jun Snyder Evaluation Date: 01/29/2025 Date of : 1965 Admission Date: 01/19/2025 2:13 AM Age: 59 y.o. [facility] A Subjective Patient alert, confused and restless, [...] Expected End: 02/02/25 Resolved: 01/25/25 Therapy Time PRACTICE DIRECTOR Individual Minutes Time In: 1438 Time Out: 1456 Minutes: 18 FRANKLIN Bailon Images from the original note were not included. [facility] - Infectious Diseases Attending Progress [...] Results Component Value Date/Time NA 134 (L) 01/29/2025 0337 K 3.7 01/29/2025 0337 CL 94 (L) 01/29/2025 0337 CO2 23 01/29/2025 0337 BUN 21 01/29/2025 0337 CREATININE 4.17 (H) 01/29/2025 0337 CREATININE 9.99 (H) 10/27/2019 0545 GLUCOSE 80 [...] be of low complexity. Radha Yee MD [facility]ph[facility] Progress Note Mr. Jun Snyder is [...] concerns. Wellington Nicole MD 01/29/2025 10:13 AM [facility] [address], [address] [place] [address] Office: [phone] Images from the original note were not included. Hospitalist Progress Note 01/29/2025 Subjective: Admit Date: 01/19/2025 PCP: Leilani Troncoso Room#: 1C-144/1C-144 A Brief Hospital Summary: Jun Snyder is a 59 y.o. male who who presented to [facility] 01/19 after inadvertent removal of his tracheostomy. He was transferred to [facility] ICU for surgical evaluation. On arrival he [...] HD successfully. hemodynamically stable. Transferred out to [facility] 01/27 Interval History: No overnight issues. Patient [...] History: Diagnosis Date Acute renal failure (ARF) ([facility]) 10/19/2019 Anemia 12/30/2021 Calcification of abdominal aorta ([facility]) 10/08/202309/[address] abd Diverticulosis 10/08/2023 ESRD on hemodialysis ([facility]) ([facility]) 10/26/2019 Hemodialysis patient ([facility]) ([facility]) HTN (hypertension) 12/01/2022 Hypertension IgA nephropathy 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 10/26/2019 Missed vaccination due to patient refusal 10/08/2023 Has a number of non-scientific based beliefs which interfere with his understanding and acceptance of the medical benefit of vaccination. Nonrheumatic aortic valve stenosis 10/08/2023 Paroxysmal A-fib ([facility]) ([facility]) 08/18/2023 Tobacco abuse 10/08/2023 LABS: CBC: Recent [...] QT Interval 413 QTC Interval 515 P Ama 69 QRS Ama 93 T Wave Ama 87 WI Interval 148 Impression Sinus rhythm Left atrial [...] sodium chloride 0.9 % 100 mL IVPB (Add-[place]), 3,000 mg, IntraVENous, q24h, Radha Yee MD, [...] patch 1 patch, 1 patch, Topical, Daily, Steev Lassiter MD, 1 patch at 01/29/25 0820 melatonin tablet 5 mg, 5 mg, Per G Tube, Nightly PRN, Steve Lassiter MD metoprolol tartrate (Lopressor) injection 5 mg, 5 mg, IntraVENous, q5 min PRN, Earlene Lozano, LOG HANDLING EQUIPMENT OPERATOR - WHITE SHOE RAGGER, 5 mg at 01/25/25 1846 metoprolol tartrate (Lopressor) tablet 25 mg, 25 mg, Per G Tube, BID, Earlene Lozano, LOG HANDLING EQUIPMENT OPERATOR - WHITE SHOE RAGGER, 25 mg at 01/28/25 2222 midodrine (Proamatine) [...] % infusion, 250 mL/hr, IntraVENous, PRN, Sangeeta Reyes DO sodium chloride 0.9 % infusion, 250 mL/hr, IntraVENous, PRN, Sangeeta Reyes DO warfarin (Coumadin) tablet 0.5 mg, 0.5 [...] by ID Ordered tunneled central line placement PRACTICE DIRECTOR follow, dysphagia diet PT OT DC planning Past Medical History: Diagnosis Date Acute renal failure (ARF) ([facility]) 10/19/2019 Anemia 12/30/2021 Calcification of abdominal aorta ([facility]) 10/08/202309/[address] abd Diverticulosis 10/08/2023 ESRD on hemodialysis ([facility]) ([facility]) 10/26/2019 Hemodialysis patient ([facility]) ([facility]) HTN (hypertension) 12/01/2022 Hypertension IgA nephropathy 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 10/26/2019 Missed vaccination due to patient refusal 10/08/2023 Has a number of non-scientific based beliefs which interfere with his understanding and acceptance of the medical benefit of vaccination. Nonrheumatic aortic valve stenosis 10/08/2023 Paroxysmal A-fib ([facility]) ([facility]) 08/18/2023 Tobacco abuse 10/08/2023 Plan As above [...] MD Division of Hospitalist Medicine Inpatient Medical Services/[facility] Images from the original note were not included. [facility] Wound Care Progress Note Jun Snyder AGE: [...] diverticulosis, IgA nephropathy, severe that presented to [facility] ED from a facility due to trach [...] History: Diagnosis Date Acute renal failure (ARF) ([facility]) 10/19/2019 Anemia 12/30/2021 Calcification of abdominal aorta ([facility]) 10/08/202309/[address] abd Diverticulosis 10/08/2023 ESRD on hemodialysis ([facility]) ([facility]) 10/26/2019 Hemodialysis patient ([facility]) ([facility]) HTN (hypertension) 12/01/2022 Hypertension IgA nephropathy 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 10/26/2019 Missed vaccination due to patient refusal 10/08/2023 Has a number of non-scientific based beliefs which interfere with his understanding and acceptance of the medical benefit of vaccination. Nonrheumatic aortic valve stenosis 10/08/2023 Paroxysmal A-fib ([facility]) ([facility]) 08/18/2023 Tobacco abuse 10/08/2023 PAST SURGICAL HISTORY Past Surgical History: Procedure Laterality Date APPENDECTOMY CARDIAC CATHETERIZATION N/A 10/09/2024 Performed by Bob Watson MD at [facility] Cardiac Cath/EP Lab CARDIAC CATHETERIZATION Bilateral 11/01/2024 Performed by Bob Watson MD at [facility] Cardiac Cath/EP Lab CARDIAC CATHETERIZATION N/A 11/01/2024 Performed by Bob Watson MD at [facility] Cardiac Cath/EP Lab COLONOSCOPY N/A 01/24/2025 Performed by Chadd Davis MD at [facility] ENDOSCOPY FISTULAGRAM (HISTORICAL) Left 09/15/2021 LEFT UPPER ARM HX AV FISTULA CREATION IR EMBOLIZATION 10/14/2024 IR EMBOLIZATION 10/14/2024 [facility] SPECIAL PROCEDURES IR FISTULAGRAM 08/07/2022 IR FISTULAGRAM 08/07/2022 [facility] IR IMAGING TONSILLECTOMY (HISTORICAL) FAMILY HISTORY Family [...] Medication Sig Dispense Refill epoetin rowan-epbx (Retacrit) 54753 UNIT/ML injection Inject 0.79 mL (7,900 Units) [...] to follow Recommend to follow up at [facility] Outpatient wound care center after hospital discharge. [...] Gill DO at 01/29/2025 4:37 PM EDT [facility] Anticoagulation Management Service ([facility]) Inpatient Warfarin Consult HPI: Jun Snyder is a 59 y.o. male admitted on 01/19/2025 for Complication of tracheostomy (CMS/HCC) (HCC) [J95.00] Past Medical History: Diagnosis Date Acute renal failure (ARF) (HCC) 10/19/2019 Anemia 12/30/2021 Calcification of abdominal aorta (HCC) 10/08/202309/[address] abd Diverticulosis 10/08/2023 ESRD on hemodialysis ([facility]) ([facility]) 10/26/2019 Hemodialysis patient ([facility]) ([facility]) HTN (hypertension) 12/01/2022 Hypertension IgA nephropathy 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 10/26/2019 Missed vaccination due to patient refusal 10/08/2023 Has a number of non-scientific based beliefs which interfere with his understanding and acceptance of the medical benefit of vaccination. Nonrheumatic aortic valve stenosis 10/08/2023 Paroxysmal A-fib ([facility]) ([facility]) 08/18/2023 Tobacco abuse 10/08/2023 Patient is on [...] dose accordingly 3. Will facilitate f/u at [facility] upon discharge Fatuma Odonnell RPh [facility] is available daily [phone] via [employer]. If no response on [employer] Chat then please page [phone]. [facility] Progress Note Mr. Jun Snyder is [...] 5-30 Units/kg/hr, Last Rate: 13 Units/kg/hr (01/28/25 07) sodium chloride, 20 mL/hr, Last Rate: 20 [...] status and labs. Please message me through [employer] chat with any questions or concerns. Wellington Nicole MD 01/28/2025 2:08 PM [facility] [address] [place] [address], [address] [place] [id number] Office: [phone] Hospitalist Progress Note 01/28/2025 Subjective: Admit Date: 01/19/2025 PCP: Leilani Troncoso Room#: 1C-144/1C-144 A Brief Hospital Summary: Jun Snyder is a 59 y.o. male who who presented to [facility] 01/19 after inadvertent removal of his tracheostomy. He was transferred to [facility] ICU for surgical evaluation. On arrival he [...] HD successfully. hemodynamically stable. Transferred out to [facility] 01/27 Interval History: No overnight issues. Up [...] History: Diagnosis Date Acute renal failure (ARF) ([facility]) 10/19/2019 Anemia 12/30/2021 Calcification of abdominal aorta ([facility]) 10/08/202309/[address] abd Diverticulosis 10/08/2023 ESRD on hemodialysis ([facility]) ([facility]) 10/26/2019 Hemodialysis patient ([facility]) ([facility]) HTN (hypertension) 12/01/2022 Hypertension IgA nephropathy 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 10/26/2019 Missed vaccination due to patient refusal 10/08/2023 Has a number of non-scientific based beliefs which interfere with his understanding and acceptance of the medical benefit of vaccination. Nonrheumatic aortic valve stenosis 10/08/2023 Paroxysmal A-fib ([facility]) ([facility]) 08/18/2023 Tobacco abuse 10/08/2023 LABS: CBC: Recent Labs 01/26/2524701/26/25 0952 01/27/25 0006 01/27/25 2147 01/28/25 0516 WBC 8.7 -- 10.0 -- 9.8 RBC 2.41* -- 3.26* -- 3.01* HGB 6.7* < > 9.0* 8.4* 8.5* HCT 21.0* < > 28.3* 26.3* 26.3* MCV 87.1 -- 86.8 -- 87.4 RDW 19.3* -- 19.1* -- 19.0* PLT 265 -- 273 -- 240 < > = values in this interval not displayed. BMP: Recent Labs 01/26/2524701/27/25 0006 01/28/25 0632 NA 136 139 137 K 5.1 3.9 3.6 CL 100 99 98 CO2 20* 23 26 BUN 19 9 14 CREATININE 3.37* 2.27* 3.37* GLUCOSE 75 115* 82 CALCIUM 9.0 9.9 10.0 ANIONGAP 16* 17* 13 LIVER PROFILE:No results for input(s): AST, ALT, BILITOT, ALKPHOS, PROT in the last 72 hours. No lab exists for component: LABALBU PT/INR: Recent Labs 01/26/2524701/27/25 0006 01/28/25 0516 PROTIME 18.3* 19.9* 21.9* INR 1.8* 1.9* 2.2* CARDIAC ENZYMES: No results for input(s): TROPONINI in the last 72 hours. Procalcitonin: No results found for: PROCAL COVID-19 PCR: No results for input(s): COVID19 in the last 72 hours. Encounter Date: 01/19/25 ECG 12 lead Result Value Heart Rate 93 QRSD Interval 113 QT Interval 413 QTC Interval 515 P Ama 69 QRS Ama 93 T Wave Ama 87 WI Interval 148 Impression Sinus rhythm Left atrial [...] sodium chloride 0.9 % 100 mL IVPB (Add-[place]), 3,000 mg, IntraVENous, q24h, Radha Yee MD, [...] q5 min PRN, Earlene Lozano APRN - WHITE SHOE RAGGER, 5 mg at 01/25/25 1846 metoprolol tartrate (Lopressor) tablet 25 mg, 25 mg, Per G Tube, BID, Earlene Lozano APRN - WHITE SHOE RAGGER, 25 mg at 01/28/25 0848 midodrine (Proamatine) [...] % infusion, 250 mL/hr, IntraVENous, PRN, Sangeeta Reyes DO sodium chloride 0.9 % infusion, 250 mL/hr, IntraVENous, PRN, Sangeeta Reyes DO warfarin (Coumadin) tablet 0.5 mg, 0.5 [...] for sacral wound by ID PT OT PRACTICE DIRECTOR follow, dysphagia diet Past Medical History: Diagnosis Date Acute renal failure (ARF) (HCC) 10/19/2019 Anemia 12/30/2021 Calcification of abdominal aorta (HCC) 10/08/202309/[address] abd Diverticulosis 10/08/2023 ESRD on hemodialysis ([facility]) ([facility]) 10/26/2019 Hemodialysis patient ([facility]) ([facility]) HTN (hypertension) 12/01/2022 Hypertension IgA nephropathy 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 10/26/2019 Missed vaccination due to patient refusal 10/08/2023 Has a number of non-scientific based beliefs which interfere with his understanding and acceptance of the medical benefit of vaccination. Nonrheumatic aortic valve stenosis 10/08/2023 Paroxysmal A-fib ([facility]) ([facility]) 08/18/2023 Tobacco abuse 10/08/2023 Plan As above [...] MD Division of Hospitalist Medicine Inpatient Medical Services/[place] [facility] Anticoagulation Management Service ([facility]) Inpatient Warfarin Consult HPI: Jun Snyder is a 59 y.o. male admitted on 01/19/2025 for Complication of tracheostomy ([facility]) ([facility]LY [facility]) [J95.00] Past Medical History: Diagnosis Date Acute renal failure (ARF) ([facility]) 10/19/2019 Anemia 12/30/2021 Calcification of abdominal aorta ([facility]) 10/08/202309/[address] abd Diverticulosis 10/08/2023 ESRD on hemodialysis ([facility]) ([facility]) 10/26/2019 Hemodialysis patient ([facility]) ([facility]) HTN (hypertension) 12/01/2022 Hypertension IgA nephropathy 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 10/26/2019 Missed vaccination due to patient refusal 10/08/2023 Has a number of non-scientific based beliefs which interfere with his understanding and acceptance of the medical benefit of vaccination. Nonrheumatic aortic valve stenosis 10/08/2023 Paroxysmal A-fib ([facility]/HCC) (HCC) 08/18/2023 Tobacco abuse 10/08/2023 Patient is [...] dose accordingly 3. Will facilitate f/u at [facility] upon discharge Vu Guido PharmD [facility] is available daily [phone] via [employer]. If no response on [employer] Chat then please page [phone]. [facility] Anticoagulation Management Service ([facility]IL[facility]) Inpatient Warfarin Consult HPI: Jun Snyder is a 59 y.o. male admitted on 01/19/2025 for Complication of tracheostomy ([facility]) ([facility]) [J95.00] Past Medical History: Diagnosis Date Acute renal failure (ARF) ([facility]) 10/19/2019 Anemia 12/30/2021 Calcification of abdominal aorta ([facility]) 10/08/202309/[address] abd Diverticulosis 10/08/2023 ESRD on hemodialysis ([facility]) ([facility]) 10/26/2019 Hemodialysis patient ([facility]) ([facility]) HTN (hypertension) 12/01/2022 Hypertension IgA nephropathy 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 10/26/2019 Missed vaccination due to patient refusal 10/08/2023 Has a number of non-scientific based beliefs which interfere with his understanding and acceptance of the medical benefit of vaccination. Nonrheumatic aortic valve stenosis 10/08/2023 Paroxysmal A-fib ([facility]) ([facility]) 08/18/2023 Tobacco abuse 10/08/2023 Patient is on [...] 0251 01/25/25 0953 01/26/25 0248 01/26/25 0952 01/26/253 01/27/25 0006 HGB 7.0* < > 6.7* 8.9* [...] dose accordingly 3. Will facilitate f/u at [facility] upon discharge Vu Guido PharmD [facility] is available daily [phone] via [employer]. If no response on [employer] Chat then please page [phone]. [facility] Respiratory Care Department Progress Note As [...] Respiratory in the care of this patient, [facility] Progress Note Mr. Jun Snyder is [...] Results from last 7 days Lab Units 01/27/25501/26/2524701/25/25250 MAGNESIUM mg/dL 1.9 2.0 2.1 Results from last 7 days Lab Units 01/27/25501/26/25205201/26/2595101/26/2524701/25/2553 01/25/25250 WBC AUTO 10*3/uL 10.0 -- -- 8.7 [...] concerns. Wellington Nicole MD 01/27/2025 7:11 AM [facility] [address] [place] [address], [address] [place] [address] Office: [phone] ICU Progress Note Name: Jun Snyder : 1965(59 y.o.) Date: 01/27/25 Team: MICU Attending: DARRYN HIGGINS Subjective: Hospital Summary: Jun Snyder is a 59 y.o. male who who presented to [facility] 01/19 after inadvertent removal of his tracheostomy. He was transferred to [facility] ICU for surgical evaluation. On arrival he [...] Normal [] Scar/Lesion/Mass Inspection of teeth/lips/gums Dentition: [x][place] Teeth []Dentures Lips/Gums: [x]Intact []Lesion Present Mucosa: [x][place] []Moist []Dry Neck: External Appearance Overall Appearance: [...] within last 24 hours- BMP: Recent Labs 01/25/2525001/26/2524701/27/25 0006 NA 138 136 139 K 3.9 [...] displayed. ABGs: No results for input(s): PHART, OPF7FFX, PO2ART, MCO8HFQ, SO2ART, K9ODDDIT in the last 72 hours. Lactic Acid: Recent Labs 01/24/25 0830 LACTATE 0.9 INR: Recent Labs 01/25/25 0618 01/26/25 0248 01/27/25 0006 INR 1.7* 1.8* 1.9* Cardiac [...] Plan: Principal Problem: Complication of tracheostomy (CMS/HCC) ([facility]) Active Problems: Severe malnutrition (CMS/HCC) ([facility]) BRBPR (bright red blood per rectum) GIB [...] H/H and PT/INR q12 - Diet per PRACTICE DIRECTOR recs Appreciate Recs: Pureed solids and [...] apply Betadine and allow to dry, leave CHANGEOVER OPERATOR daily and PRN - PVRs for circulation check - rec wound vac for sacral wound, change 3x/wk and PRN Hx CAD s/p CABG Severe Aortic stenosis s/p proesthetic mechanical valve S/p 23mm [facility] mechanical valve replacement on 10/12. TTE 11/24 without mechanical valve regurgitation or stenosis - heparin - Warfarin 0.5 mg once daily, pharmacy to dose ESRD (on HD MW) HAGMA - improving Hypotension, chronic S/P HD, [...] and warfarin Disposition: Stable for Transfer to [facility] Cosigned by Darryn Higgins MD at 01/27/2025 [...] PT/OT - Remains stable for transfer to [facility]. Code Status: Full Code Disposition: ok for [facility] Time spent preparing to see the patient, obtaining/reviewing separately obtained history, completing an appropriate medical examination of the patient, ordering medications/tests/procedures, documenting clinical information on the EMR, and/or coordinating care is a subsequent visit: 35 minutes (Level II). Darryn Higgins MD Pulmonary and Critical Care Medicine Attending Pager #[phone] Images from the original note were not included. PHYSICAL THERAPY [facility] Name/MRN: Jair Snyder ([id number]) Date: 01/26/2025 Attempt Note Pt on iHD. Will re-attempt as able. Chantal Rossi PT [facility] Progress Note Mr. Jun Snyder is [...] heparin, 5-30 Units/kg/hr, Last Rate: 7 Units/kg/hr (01/26/251218) sodium chloride, 20 mL/hr, Last Rate: 20 mL/hr (01/25/252003) PRN medications PRN medications: acetaminophen, collagenase, dextrose, dextrose, glucagon (rDNA), glucose, melatonin, metoprolol, naloxone, oxyCODONE OR oxyCODONE, prochlorperazine, sodium chloride, sodium chloride Results from last 7 days Lab Units 01/26/2524701/23/25 0430 01/22/25 0419 SODIUM mmol/L 136 < [...] Results from last 7 days Lab Units 01/26/2524701/25/2525001/24/25 0429 MAGNESIUM mg/dL 2.0 2.1 2.3 Results from last 7 days Lab Units 01/26/25 0952 01/26/25 0248 01/25/25 1948 01/25/25 0953 01/25/2525001/24/25 1217 01/24/25 0610 WBC AUTO 10*3/uL -- [...] concerns. Wellington Nicole MD 01/26/2025 1:55 PM [facility] [address] [place] [address], [address] [place] [address] Office: [phone] Speech-Language Pathology Pt is a hold at this time, as he is receiving dialysis. Will re-attempt next date as schedule permits. Treva Mccallum MS. CCC-PRACTICE DIRECTOR ICU Transfer Checklist Hospital course: 59 y.o. male PMH trach s/p removal, peg, HTN, afib, ESRD on TTS HD, aortic stenosis s/p mechanical valve who presented to [facility] 01/19 after inadvertent removal of his tracheostomy. Transferred to [facility] ICU for surgical evaluation. On arrival he [...] convert to PO if able) None Anticipated Bodega Medications (ICU initiated) or Dose Changes and Indication No Permanently Discontinued Home Medications and Reason for medication contraindication No Payne Catheter (please remove if able. Note: place DC order) No Central Line (please remove if able. Note: place DC order) No Transfer Discussed with: Dr. Russell, [facility] If additional questions for ICU team within 24 hours of ICU transfer, page manufacturing production technician ICU resident for clarifications. [facility] Anticoagulation Management Service ([facility]IL[facility]JA) Inpatient Warfarin Consult HPI: Jun Snyder is a 59 y.o. male admitted on 01/19/2025 for Complication of tracheostomy ([facility]) ([facility]) [J95.00] Past Medical History: Diagnosis Date Acute renal failure (ARF) ([facility]) 10/19/2019 Anemia 12/30/2021 Calcification of abdominal aorta ([facility]) 10/08/202309/[address] abd Diverticulosis 10/08/2023 ESRD on hemodialysis ([facility]) ([facility]) 10/26/2019 Hemodialysis patient ([facility]) ([facility]) HTN (hypertension) 12/01/2022 Hypertension IgA nephropathy IgA [...] facility, has yet to be seen by [facility]. Pt's home dose of warfarin is not [...] dose accordingly 3. Will facilitate f/u at [facility] upon discharge Adalberto Deleon PharmD [facility] is available daily [phone] via [employer] Chat. If no response on Epic Chat then please page [phone]. Images from the original note were not included. [facility] - Infectious Diseases Attending Progress Note Subjective: [...] Results Component Value Date/Time NA 136 01/26/2025 024 K 5.1 01/26/2025247 CL 100 01/26/2025247 CO2 20 (L) 01/26/2025247 BUN 19 01/26/2025247 CREATININE 3.37 (H) 01/26/2025247 CREATININE 9.99 (H) 10/27/2019 0545 GLUCOSE 75 01/26/2025247 CALCIUM 9.0 01/26/2025247 PROT 7.6 01/22/2025 0419 BILITOT 0.9 01/22/2025 [...] be considered to be of moderate complexity. Radha Yee MD Images from the original note were not included. [facility] Wound Care Progress Note Jun Snyder AGE: [...] diverticulosis, IgA nephropathy, severe that presented to [facility] ED from a facility due to trach dislodgement. Wound Care consulted for Pressure Injury sacrum and Ischemic ulcers to left toes Patient resting in [place] with floor RN present at bedside. Wound vac changed at time of visit with patient tolerating well. Denies any needs. PAST MEDICAL HISTORY Past Medical History: Diagnosis Date Acute renal failure (ARF) ([facility]) 10/19/2019 Anemia 12/30/2021 Calcification of abdominal aorta ([facility]) 10/08/202309/[address] abd Diverticulosis 10/08/2023 ESRD on hemodialysis ([facility]) ([facility]) 10/26/2019 Hemodialysis patient ([facility]) ([facility]) HTN (hypertension) 12/01/2022 Hypertension IgA nephropathy 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 10/26/2019 Missed vaccination due to patient refusal 10/08/2023 Has a number of non-scientific based beliefs which interfere with his understanding and acceptance of the medical benefit of vaccination. Nonrheumatic aortic valve stenosis 10/08/2023 Paroxysmal A-fib ([facility]) ([facility]) 08/18/2023 Tobacco abuse 10/08/2023 PAST SURGICAL HISTORY Past Surgical History: Procedure Laterality Date APPENDECTOMY CARDIAC CATHETERIZATION N/A 10/09/2024 Performed by Bob Watson MD at [facility] Cardiac Cath/EP Lab CARDIAC CATHETERIZATION Bilateral 11/01/2024 Performed by Bob Watson MD at [facility] Cardiac Cath/EP Lab CARDIAC CATHETERIZATION N/A 11/01/2024 Performed by Bob Watson MD at [facility] Cardiac Cath/EP Lab COLONOSCOPY N/A 01/24/2025 Performed by Chadd Davis MD at [facility] ENDOSCOPY FISTULAGRAM (HISTORICAL) Left 09/15/2021 LEFT UPPER ARM HX AV FISTULA CREATION IR EMBOLIZATION 10/14/2024 IR EMBOLIZATION 10/14/2024 [facility] SPECIAL PROCEDURES IR FISTULAGRAM 08/07/2022 IR FISTULAGRAM 08/07/2022 [facility] IR IMAGING TONSILLECTOMY (HISTORICAL) FAMILY HISTORY Family [...] Medication Sig Dispense Refill epoetin rowan-epbx (Retacrit) 54031 UNIT/ML injection Inject 0.79 mL (7,900 Units) [...] to follow Recommend to follow up at [facility] Outpatient wound care center after hospital discharge. Any questions or concerns please secure chat [facility] wound/ostomy. Thank you for the consult! I [...] MICU Attending: DARRYN HIGGINS Subjective: Hospital Summary: Jnu Snyder is a 59 y.o. male who who presented to [facility] 01/19 after inadvertent removal of his tracheostomy. He was transferred to [facility] ICU for surgical evaluation. On arrival he [...] index is 18.63 kg/m . I/O: 01/25 700 - 01/26 659 In: 626 [I.V.:626] Out: 100 [Drains:100] Ventilator: [...] Normal [] Scar/Lesion/Mass Inspection of teeth/lips/gums Dentition: [x][place] Teeth []Dentures Lips/Gums: [x]Intact []Lesion Present Mucosa: [x][place] []Moist []Dry Neck: External Appearance Overall Appearance: [...] last 24 hours- BMP: Recent Labs 01/24/25 04201/24/25121601/25/25 02501/26/25 0248 NA 139 138 138 136 [...] displayed. ABGs: No results for input(s): PHART, WXQ3BKW, PO2ART, MYD7MJM, SO2ART, D4SJHNBT in the last 72 hours. Lactic Acid: [...] Plan: Principal Problem: Complication of tracheostomy (CMS/HCC) ([facility]) Active Problems: Severe malnutrition (CMS/HCC) ([facility]) BRBPR (bright red blood per rectum) GIB [...] peripheral blood smear pending - Diet per PRACTICE DIRECTOR recs - continue q12 H/H and [...] on heparin and warfarin Disposition: Transfer to [facility] Cosigned by Darryn Higgins MD at 01/26/2025 [...] hemoglobin stable today. Stable for transfer to [facility]. Code Status: Full Code Disposition: Transfer to [facility] Time spent preparing to see the patient, obtaining/reviewing separately obtained history, completing an appropriate medical examination of the patient, ordering medications/tests/procedures, documenting clinical information on the EMR, and/or coordinating care is a subsequent visit: 35 minutes (Level II). Darryn Higgins MD Pulmonary and Critical Care Medicine Attending Pager #[phone] Images from the original note were not included. [facility] - Infectious Diseases Attending Progress Note Subjective: [...] 025 K 3.9 01/25/2025 025 CL 98 01/25/2025250 CO2 24 01/25/2025250 BUN 15 01/25/2025250 CREATININE 2.54 (H) 01/25/2025 025 CREATININE 9.99 (H) 10/27/2019 0545 GLUCOSE 74 01/25/2025 0251 CALCIUM 10.1 01/25/2025 0251 PROT 7.6 01/22/2025 0419 BILITOT 0.9 01/22/2025 [...] stenosis s/p mechanical valve who presented to [facility] 01/19 after inadvertent removal of his tracheostomy. Transferred to [facility] ICU for surgical evaluation. On arrival he [...] convert to PO if able) None Anticipated Bodega Medications (ICU initiated) or Dose Changes and Indication No Permanently Discontinued Home Medications and Reason for medication contraindication No Payne Catheter (please remove if able. Note: place DC order) No Central Line (please remove if able. Note: place DC order) No Transfer Discussed with: Dr. Russell [facility] If additional questions for ICU team within 24 hours of ICU transfer, page manufacturing production technician ICU resident for clarifications. Images from the original note were not included. Speech-Language Pathology SPEECH LANGUAGE PATHOLOGY [facility] Modified Barium Swallow Study Patient Name: Jun Snyder Evaluation Date: 01/25/2025 Date of : 1965 Admission Date: 01/19/2025 2:13 AM Age: 59 y.o. Room[facility]Bed: [facility] A IMPRESSION: The patient presents with moderate [...] swallow). Pt would benefit from skilled acute PRACTICE DIRECTOR services to ensure diet tolerance, train [...] simple directives. Hoarse vocal quality noted. Radiologist: Genny Prior MBSS?: No Baseline Diet: NPO with [...] History: Diagnosis Date Acute renal failure (ARF) ([facility]) 10/19/2019 Anemia 12/30/2021 Calcification of abdominal aorta ([facility]) 10/08/202309/[address] abd Diverticulosis 10/08/2023 ESRD on hemodialysis ([facility]) ([facility]) 10/26/2019 Hemodialysis patient ([facility]) ([facility]) HTN (hypertension) 12/01/2022 Hypertension IgA nephropathy 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 10/26/2019 Missed vaccination due to patient refusal 10/08/2023 Has a number of non-scientific based beliefs which interfere with his understanding and acceptance of the medical benefit of vaccination. Nonrheumatic aortic valve stenosis 10/08/2023 Paroxysmal A-fib ([facility]) ([facility]) 08/18/2023 Tobacco abuse 10/08/2023 Past Surgical History: Past Surgical History: Procedure Laterality Date APPENDECTOMY CARDIAC CATHETERIZATION N/A 10/09/2024 Performed by Bob Watson MD at [facility] Cardiac Cath/EP Lab CARDIAC CATHETERIZATION Bilateral 11/01/2024 Performed by Bob Watson MD at [facility] Cardiac Cath/EP Lab CARDIAC CATHETERIZATION N/A 11/01/2024 Performed by Bob Watson MD at [facility] Cardiac Cath/EP Lab COLONOSCOPY N/A 01/24/2025 Performed by Chadd Davis MD at [facility] ENDOSCOPY FISTULAGRAM (HISTORICAL) Left 09/15/2021 LEFT UPPER ARM HX AV FISTULA CREATION IR EMBOLIZATION 10/14/2024 IR EMBOLIZATION 10/14/2024 [facility] SPECIAL PROCEDURES IR FISTULAGRAM 08/07/2022 IR FISTULAGRAM 08/07/2022 [facility] IR IMAGING TONSILLECTOMY (HISTORICAL) Admission Diagnosis: Patient Active Problem List Diagnosis Date Noted Severe malnutrition (CMS/HCC) ([facility]) 01/19/2025 Complication of tracheostomy ([facility]/HCC) ([facility]) 01/19/2025 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 01/12/2025 Acute respiratory failure with hypoxia ([facility]) [J96.01] 01/08/2025 Tracheostomy care ([facility]) [Z43.0] 01/08/2025 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[facility]) 01/08/2025 Sacral osteomyelitis ([facility]/HCC) ([facility]) 01/03/2025 Pneumonia of both lungs due to methicillin susceptible Staphylococcus aureus (MSSA) ([facility]) 01/01/2025 Leukocytosis 12/30/2024 Decubitus ulcer of sacral region, unstageable ([facility]) 12/30/2024 Peritonitis due to fungus ([facility]) 11/30/2024 History of abdominal surgery 11/30/2024 Leg DVT (deep venous thromboembolism), acute, left ([facility]) 11/30/2024 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, 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 of skin ([facility]) 11/30/2024 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[facility]) 11/30/2024 Pleural effusion 11/28/2024 Gastric ulceration 2024 Atrial flutter, unspecified type ([facility]) 10/03/2024 RSV (acute bronchiolitis due to respiratory syncytial virus) 10/03/2024 Diverticulosis 10/08/2023 Nonrheumatic aortic valve stenosis 10/08/2023 Calcification of abdominal aorta ([facility]) 10/08/2023 Missed vaccination due to patient refusal 10/08/2023 Tobacco abuse 10/08/2023 Alcohol use disorder in remission 10/08/2023 Paroxysmal A-fib (CMS/HCC) ([facility]) 08/18/2023 HTN (hypertension) 12/01/2022 ESRD on hemodialysis ([facility]) (HCC) 10/26/2019 IgA nephropathy determined by biopsy of [...] diverticulosis, IgA nephropathy, severe that presented to [facility] ED from a facility due to trach dislodgement. Per patient, was trying to disconnect his vent to transfer to another room but accidentally pulled out his tracheostomy. This event happened approximately 45 minutes before ED arrival. ED attempted to place tracheostomy tube back but were unsuccessful. Decision was made to transfer patient to [facility] ICU for further airway management and determine [...] Expected End: 02/02/25 Resolved: 01/25/25 Therapy Time PRACTICE DIRECTOR Individual Minutes Time In: 1145 Time Out: 1205 Minutes: 20 Christina Nunez MA, CCC/PRACTICE DIRECTOR [facility] Anticoagulation Management Service ([facility]) Inpatient Warfarin Consult HPI: Jun Snyder is a 59 y.o. male admitted on 01/19/2025 for Complication of tracheostomy ([facility]) ([facility]) [J95.00] Past Medical History: Diagnosis Date Acute renal failure (ARF) ([facility]) 10/19/2019 Anemia 12/30/2021 Calcification of abdominal aorta ([facility]) 10/08/202309/[address] abd Diverticulosis 10/08/2023 ESRD on hemodialysis ([facility]) ([facility]) 10/26/2019 Hemodialysis patient ([facility]) ([facility]) HTN (hypertension) 12/01/2022 Hypertension IgA nephropathy 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 10/26/2019 Missed vaccination due to patient refusal 10/08/2023 Has a number of non-scientific based beliefs which interfere with his understanding and acceptance of the medical benefit of vaccination. Nonrheumatic aortic valve stenosis 10/08/2023 Paroxysmal A-fib ([facility]) ([facility]) 08/18/2023 Tobacco abuse 10/08/2023 Patient is on warfarin for Afib, mechanical AVR and has a goal INR 2.0 - 3.0. Warfarin is currently managed by facility, has yet to be seen by [facility]. Pt's home dose of warfarin is not [...] dose accordingly 3. Will facilitate f/u at [facility] upon discharge Adalberto Deleon PharmD, PharmD [facility] is available daily [phone] via [employer]. If no response on [employer] then please page [phone]. [facility] Progress Note Mr. Jun Snyder is [...] status and labs. Please message me through [employer] chat with any questions or concerns. Wellington Nicole MD 01/25/2025 11:44 AM [facility] [address], [address] [place] [address] Office: [phone] Images from the original note were not included. Palliative Care Progress note Chief Complaint: Jun Snyder is a 59 y.o. male with chief complaint of dislodged tracheostomy. Palliative Care is signing off, please re-consult if needed. (add SIGNOFFTRANSITION dotphrase below) Assessment/Plan Goals of care - Patient has capacity to make medical decisions - legal surrogate decision maker HCPOA Omar, 1st alternate is significant other Toma - goals of care include: 1) to continue current management, continue with aggressive medical therapy, procedures, antibiotics at this time - [facility] - will forward chart to Palliative [...] AV replacement Supratherapeutic INR - [facility] Director valve in 09/2024 - coumadin held due to bleeding and supratherapeutic levels Chronic respiratory failure s/p tracheostomy Tracheostomy dislodgement - has been saturating well without trach on RA so has not been replaced Palliative Care Encounter - Code Status: Full Code - Jun Snyder has been seen in consultation by [facility] Palliative Care during their admission to [facility]. They currently have no uncontrolled symptoms and [...] Palliative Care IDT members involved: Palliative Care Rotary [employer]el [employer] Tender Discussed the plan of care with the [...] to have bile peritonitis 11/28/24: transferred to [facility] He ended up developing sacral ulcer and osteomyelitis at [facility]. He then ended up dislodging his tracheostomy, and was brought to [facility] ED for further care. Palliative care consulted [...] much better. Planning to eventually discharge to [facility]. Discussed trying to get palliative care to [...] child(rocky) Living status: SNF Work history: unknown [place] status: unknown Presybeterian annette: Non-Oriental Orthodox ROS: See palliative care ROS/ESAS below; All other systems were reviewed and are negative. [place] Symptom Assessment Score Gr[place] Score Pain Score (if non-verbal, add .FLACC [...] 59 y.o. male who who presented to [facility] 01/19 after inadvertent removal of his tracheostomy. He was transferred to [facility] ICU for surgical evaluation. On arrival he [...] Objective: Last Vitals: BP MAP 124/74 (01/25/25 042) 85 (01/25/25 0400) Arterial BP MAP Temp 37.1 C (98.7 F) (01/25/25428) Pulse 97 (01/25/25 0413) Resp 16 (01/25/25412) SpO2 97 % (01/25/25412) Weight 58.9 kg (129 lb 13.6 oz) (01/19/25 0657) BMI Body mass index is 18.63 kg/m . I/O: 01/24 07 - 01/25 659 In: 748 [I.V.:673] Out: [...] Normal [] Scar/Lesion/Mass Inspection of teeth/lips/gums Dentition: [x][place] Teeth []Dentures Lips/Gums: [x]Intact []Lesion Present Mucosa: [x][place] []Moist []Dry Neck: External Appearance Overall Appearance: [...] 19.2* ABGs: No results for input(s): PHART, IHD9HPC, PO2ART, ZIU1XKK, SO2ART, J9PQIBNA in the last 72 hours. Lactic Acid: Recent Labs 01/24/25 0830 LACTATE 0.9 INR: Recent Labs 01/24/25 0429 01/24/25 1217 01/24/25 2348 INR 1.5* 1.5* 1.5* Cardiac Injury [...] Plan: Principal Problem: Complication of tracheostomy (CMS/HCC) ([facility]) Active Problems: Severe malnutrition (CMS/HCC) ([facility]) BRBPR (bright red blood per rectum) GIB [...] peripheral blood smear pending - Diet per PRACTICE DIRECTOR recs - continue q12 H/H and [...] apply Betadine and allow to dry, leave CHANGEOVER OPERATOR daily and PRN - PVRs for circulation [...] Prophylaxis: SCDs warfarin held Disposition: Transfer to [facility] Cosigned by Darryn Higgins MD at 01/25/2025 [...] and appropriate. If stable can transfer to [facility]. Code Status: Full Code Disposition: Transfer to [facility] Time spent preparing to see the patient, obtaining/reviewing separately obtained history, completing an appropriate medical examination of the patient, ordering medications/tests/procedures, documenting clinical information on the EMR, and/or coordinating care is a subsequent visit: 35 minutes (Level II). Darryn Higgins MD Pulmonary and Critical Care Medicine Attending Pager #[phone] Images from the original note were not included. [facility] - Infectious Diseases Advanced Practice Provider Progress [...] vac in place with serosanguinous drainage in monserratister L toes 1-4 with dry gangrene LUE AVF Neurological: General: No focal deficit present. Mental Status: He is alert and oriented to person, place, and time. Psychiatric: Mood and Affect: Mood normal. Behavior: Behavior normal. Labs: Recent Labs 01/22/25 0419 01/23/25 0430 01/24/25 0429 01/24/25 1217 NA 132* 140 139 138 K 4.4 3.4* 4.0 3.5 CL 94* 102 98 100 CO2 25 21* 26 BUN 53* 22 27* [...] 01/22 A baumannii screen: in process Previous ([facility]) 01/02- sacral wound cx- E faecalis (Amp-S), [...] of moderate complexity. Mikala MORAN PA-C [facility] [place] [facility] Progress Note Mr. Jun Snyder is [...] last 7 days Lab Units 01/24/25 1217 01/23/25 0430 01/22/25 0419 SODIUM mmol/L 138 [...] last 7 days Lab Units 01/24/25 0429 01/23/25 0430 01/22/25 041 MAGNESIUM mg/dL 2.3 2.1 2.6 Results from last 7 days Lab Units 01/24/25 1217 01/24/25 0610 01/23/25 1514 01/23/25 0430 WBC AUTO 10*3/uL -- 11.5* 10.9* 11.1* [...] status and labs. Please message me through Just[employer] chat with any questions or concerns. Wellington Nicole MD 01/24/2025 3:17 PM [facility] [address] [place] [address], [address] [place] [address] Office: [phone] Nutrition Assessment Type and Reason for Visit: [...] was receiving and tolerating while at [facility]. Noted PRACTICE DIRECTOR is following- trach remains out and pt stable without it. PRACTICE DIRECTOR most recently recommended MBSS completion- will follow and monitor PRACTICE DIRECTOR recs and need for adjustment in [...] the ICU after he initially presented to [facility] ED on 01/19/25 due to inadvertent removal of his tracheostomy, pt was transferred to [facility] ICU for surgical evaluation, on arrival he [...] complete 6 week course, Nephrology remains following 2/2 ESRD- continuing M/W/F schedule at this time, pt had HD today with 1000mL removed, Surgery was consulted for evaluation of bleeding sacral wound- saigned off yesterday with recs for no acute surgical intervention and to continue wound care/vac, wound care remains following due to sacrum stage 4 with vac management and also left toes 1-4 arterial ulcers, PRACTICE DIRECTOR remains following- yesterday noted recs to [...] able to be re-initiated as well as PRACTICE DIRECTOR recs for possible diet advancement s/p [...] weight was obtained) Usual Body Weight: (per [facility] review --> 10/08/23: 207#, 11/12: 208#, 08/28: 206#, 10/04/24: 192#, 10/15: 207# bedscale, 10/31: 200#, 11/28: 161#, 01/18: 142#) [place] Body Weight (lbs) (Calculated): 166 lbs [place] Body Weight (Kg) (Calculated): 75 kg % [place] Body Weight (Calculated): 78.2 % BMI (kg/m2) [...] determine Dana El [address] Contact: available via JustBook chat or *[phone] [facility] Anticoagulation Management Service ([facility]ILA[facility]) Inpatient Warfarin Consult HPI: Jun Snyder is a 59 y.o. male admitted on 01/19/2025 for Complication of tracheostomy (CMS/HCC) ([facility]) [J95.00] Past Medical History: Diagnosis Date Acute renal failure (ARF) (HCC) 10/19/2019 Anemia 12/30/2021 Calcification of abdominal aorta (HCC) 10/08/202309/[address] abd Diverticulosis 10/08/2023 ESRD on hemodialysis (CMS/HCC) (HCC) 10/26/2019 Hemodialysis patient (CMS/HCC) ([facility]) HTN (hypertension) 12/01/2022 Hypertension IgA nephropathy IgA [...] facility, has yet to be seen by [facility]. Pt's home dose of warfarin is not [...] dose accordingly 3. Will facilitate f/u at [facility] upon discharge Fatuma Odonnell RPh, PharmD [facility] is available daily [phone] via [employer]. If no response on [employer] Chat then please page [phone]. ICU Progress Note Name: Jun Snyder : 1965(59 y.o.) Date: 01/24/25 Team: MICU Attending: Dr. Higgins Subjective: Hospital Summary: Mr Snyder is a 59 year old male who presented to [facility] 01/19 after inadvertent removal of his tracheostomy. He was transferred to [facility] ICU for surgical evaluation. On arrival he [...] Vitals: BP MAP 144/78 (01/24/25 0000) 98 (01/24/25 0000) Arterial BP MAP Temp 36.4 C (97.6 F) (01/23/251999) Pulse 80 (01/24/25 0000) Resp (!) 10 (01/24/25 0000) SpO2 98 % (01/24/25 0000) Weight 58.9 kg (129 lb 13.6 oz) (01/19/25 0657) BMI Body mass index is 18.63 kg/m . I/O: 01/23 700 - 01/24 659 In: 4496 [I.V.:410] Out: [...] Normal [] Scar/Lesion/Mass Inspection of teeth/lips/gums Dentition: [][place] Teeth []Dentures Lips/Gums: []Intact []Lesion Present Mucosa: [x][place] []Moist [x]Dry Neck: External Appearance Overall Appearance: [...] within last 24 hours- BMP: Recent Labs 01/22/2541801/23/2542901/24/25428 NA 132* 140 139 K 4.4 3.4* 4.0 CL 94* 102 98 CO2 25 25 21* BUN 53* 22 27* CREATININE 4.18* 2.34* 3.62* CALCIUM 9.8 9.4 10.2 MG 2.6 2.1 2.3 PHOS 6.8* 4.5 5.1* LFTs: Recent Labs 01/22/25418 AST 51* ALT 44* PROT 7.6 ALBUMIN 2.2* BILITOT 0.9 ALKPHOS 274* Glucose: Recent Labs 01/21/25 1115 01/21/25 1859 01/22/25 0005 01/22/25 0419 01/22/25 0554 01/22/25 1318 01/22/25 2357 01/23/25 0430 01/23/25 0626 01/23/25 2317 01/24/25428 GLUCOSE -- -- -- 70* -- -- -- 80 -- -- 74 POCGLU 92 86 82 -- 81 77 101* -- 92 113* -- Procal: No results for input(s): PROCAL in the last 72 hours. CBC: Recent Labs 01/23/25 04301/23/25 1514 01/24/25 0610 WBC 11.1* 10.9* 11.5* HGB 7.3* 7.9* 7.9* 8.0* HCT 23.4* 25.3* 25.1* 27.0* PLT 345 346 355 MCV 88.6 89.4 94.1 RDW 18.5* 18.8* 19.4* ABGs: No results for input(s): PHART, ZLF8WJT, PO2ART, THP6QRA, SO2ART, Y9SGXCEY in the last 72 hours. Lactic Acid: [...] above. Report Dictated on Electronically Signed By: aKrly Parker MD Electronically Signed Date/Time: 01/20/2025 7:02 [...] clean toes w NS, apply betadine, leave TISHA - PVRs for circulation check - rec [...] post scope if stable can transfer to [facility] tomorrow Code Status: Full Code Disposition: Remain in ICU Time spent preparing to see the patient, obtaining/reviewing separately obtained history, completing an appropriate medical examination of the patient, ordering medications/tests/procedures, documenting clinical information on the EMR, and/or coordinating care is a subsequent visit: 35 minutes (Level II). Darryn Higgins MD Pulmonary and Critical Care Medicine Attending Pager #[phone] [facility] Progress Note Mr. Jun Snyder is [...] days Lab Units 01/23/25 0430 01/22/25 0419 SODIUM mmol/L 140 132* POTASSIUM mmol/L 3.4* 4.4 CHLORIDE mmol/L 102 94* CO2 mmol/L 25 BUN mg/dL 22 53* CREATININE mg/dL 2.34* [...] status and labs. Please message me through JustBook chat with any questions or concerns. Wellington Nicole MD 01/23/2025 5:03 PM [facility] [address], [address] [place] [address] Office: [phone] Images from the original note were not included. Speech-Language Pathology SPEECH LANGUAGE PATHOLOGY [facility] Dysphagia Treatment Note Patient Name: Jun Snyder Evaluation Date: 01/23/2025 Date of : 1965 Admission Date: 01/19/2025 2:13 AM Age: 59 y.o. [facility] A Subjective Patient alert and cooperative. Seen [...] Start: 01/19/25 Expected End: 02/02/25 Therapy Time PRACTICE DIRECTOR Individual Minutes Time In: 1315 Time Out: 1330 Minutes: 15 FRANKLIN Singh Images from the original note were not included. [facility] - Infectious Diseases Advanced Practice Provider Progress [...] of moderate complexity. Mikala MORAN PA-C [facility] [place] Disease Images from the original note [...] Results from last 7 days Lab Units 01/23/2542901/22/25153801/22/25 0419 WBC AUTO 10*3/uL 11.1* 10.6 10.6 HEMOGLOBIN g/dL 7.3* 7.4* 8.0* HEMATOCRIT % 23.4* 23.9* 25.1* PLATELETS 10*3/uL 345 292 330 Results from last 7 days Lab Units 01/23/2542901/22/2541801/21/25 0243 SODIUM mmol/L 140 132* 135* POTASSIUM mmol/L 3.4* 4.4 4.3 CHLORIDE mmol/L 102 94* 96* CO2 mmol/L 25 25 24 BUN mg/dL 22 53* 46* CREATININE mg/dL 2.34* 4.18* 2.99* GLUCOSE mg/dL 80 70* 60* CALCIUM mg/dL 9.4 9.8 9.9 Results from last 7 days Lab Units 01/22/259 ALK PHOS U/L 274* BILIRUBIN TOTAL mg/dL 0.9 BILIRUBIN DIRECT mg/dL 0.7* PROTEIN TOTAL g/dL 7.6 ALT U/L 44* AST U/L 51* No results found for: LIPASE Results from last 7 days Lab Units 01/23/25 04301/22/2541801/21/25 0243 MAGNESIUM mg/dL 2.1 2.6 2.5 Results [...] Active Problem List Diagnosis Anemia Paroxysmal A-fib ([facility]) ([facility]) HTN (hypertension) ESRD on hemodialysis ([facility]) ([facility]) 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 Diverticulosis Nonrheumatic aortic valve stenosis Calcification of abdominal aorta ([facility]) Missed vaccination due to patient refusal Tobacco abuse Alcohol use disorder in remission Atrial flutter, unspecified type ([facility]) RSV (acute bronchiolitis due to respiratory syncytial virus) Aortic stenosis Upper GI bleed S/P AVR Acute hypoxic respiratory failure ([facility]) Acute encephalopathy Pneumoperitoneum Gastric ulceration Severe malnutrition ([facility]) ([facility]) Pleural effusion Peritonitis due to fungus ([facility]) History of abdominal surgery Leg DVT (deep venous thromboembolism), acute, left ([facility]) 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, 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 of skin ([facility]) 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[facility]) Leukocytosis Decubitus ulcer of sacral region, unstageable ([facility]) Pneumonia of both lungs due to methicillin susceptible Staphylococcus aureus (MSSA) ([facility]) Sacral osteomyelitis (CMS/HCC) (HCC) Acute respiratory failure with hypoxia ([facility]) [J96.01] Tracheostomy care ([facility]) [Z43.0] 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[facility]) 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 Complication of tracheostomy (CMS/HCC) ([facility]) BRBPR (bright red blood per rectum) I have personally performed a face to face diagnostic evaluation on this patient. I have reviewed and agree with the care plan as documented above by my LOG HANDLING EQUIPMENT OPERATOR/PA-C. I personally discussed the review of systems [...] []SW/TCC []Other Total Care Time (combined between LOG HANDLING EQUIPMENT OPERATOR/PA-C and myself) throughout the day today was >= 35 minutes (including chart/data review/analysis, care coordination, and [id number] encounter), and was spent discussing/counseling the patient/family regarding the care plan for this patient. I examined the patient independently. I reviewed relevant data myself and may have also done so in the context of team rounds. A full chart review was performed. Ivett Buckley MD Division of Trauma Department of Surgery [facility] Images from the original note were not [...] sodium chloride 0.9 % 100 mL IVPB (Add-[place]), 3,000 mg, IntraVENous, q12h, Steve Lassiter MD, [...] 20 mEq, 20 mEq, IntraVENous, Once, Nils S Antwanh, DO prochlorperazine (Compazine) injection 5 mg, 5 mg, IntraVENous, q6h PRN, Sangeeta Reyes DO sodium chloride 0.9 % infusion, 250 [...] 4.4 3.4* CL 96* 94* 102 CO2 25 BUN 46* 53* 22 CREATININE 2.99* 4.18* [...] +scattered ecchymoses Neuro: nonfocal Labs/Studies reviewed in [facility] ASSESSMENT/PLAN: GIB - Hematochezia Chronic Anticoagulation -h/o [...] 59 year old male who presented to [facility] 01/19 after inadvertent removal of his tracheostomy. He was transferred to [facility] ICU for surgical evaluation. On arrival he [...] Vitals: BP MAP 127/71 (01/23/25 0600) 87 (01/23/25599) Arterial BP MAP Temp 36.1 C (97 F) (01/23/25 0400) Pulse 89 (01/23/25599) Resp 14 (01/23/25599) SpO2 97 % (01/23/25599) Weight 58.9 kg (129 lb 13.6 oz) [...] Normal [] Scar/Lesion/Mass Inspection of teeth/lips/gums Dentition: [][place] Teeth []Dentures Lips/Gums: []Intact []Lesion Present Mucosa: [][place] []Moist []Dry Neck: External Appearance Overall Appearance: [...] within last 24 hours- BMP: Recent Labs 01/21/2524201/22/2541801/23/25 0430 NA 135* 132* 140 K 4.3 [...] the last 72 hours. CBC: Recent Labs 01/22/25 0419 01/22/25 1539 01/23/25 0430 WBC 10.6 10.6 11.1* HGB 8.0* 7.4* 7.3* HCT 25.1* 23.9* 23.4* PLT 330 292 345 MCV 86.9 88.8 88.6 RDW 18.6* 18.4* 18.5* ABGs: No results for input(s): PHART, ICF1AYV, PO2ART, DMP4ZYK, SO2ART, P0QPPBMZ in the last 72 hours. Lactic Acid: [...] (HCC) Active Problems: Severe malnutrition (CMS/HCC) (HCC) GI Bleed, worsened by Warfarin Non-bleeding duodenal [...] setting of GI bleed Disposition: Transfer to [facility] Cosigned by Darryn Higgins MD at 01/23/2025 [...] Pulmonary and Critical Care Medicine Attending Pager #[phone] [facility] Respiratory Care Department Progress Note As [...] Respiratory in the care of this patient, [facility]ph[facility] Progress Note Mr. Jun Snyder is [...] concerns. Wellington Nicole MD 01/22/2025 3:30 PM [facility] [address], [address] [place] [id number] Office: [phone] Images from the original note were not included. [facility] - Infectious Diseases Advanced Practice Provider Progress [...] 101 (!) 11 97 % 01/22/25 1115 -- -- 105 18 96 % 01/22/25 1110 (!) -- -- 101 22 96 % 01/22/25 1105 (!) -- -- 109 21 96 % 01/22/25 [...] Behavior: Behavior normal. Labs: Recent Labs 01/20/25 0514 01/21/25 0243 01/22/25 0419 NA 135* 135* 132* K 4.8 4.3 4.4 CL 98 96* 94* CO2 25 BUN 91* 46* 53* CREATININE 4.31* 2.99* 4.18* GLUCOSE 68* 60* 70* CALCIUM 9.2 9.9 9.8 PROT -- -- 7.6 BILITOT -- -- 0.9 ALKPHOS -- -- 274* AST -- -- 51* ALT -- -- 44* Recent Labs 01/20/25 0514 01/20/25 0801 01/21/25 0243 01/21/25 0908 01/21/25 1452 01/21/25 2348 01/22/25 0419 WBC 10.5 -- 10.1 9.2 -- -- [...] at [facility] (Cx with E faecalis and Clostridium). Sacral [...] of moderate complexity. Mikala MORAN PA-C [facility] [place] Disease Speech-Language Pathology Spoke with the RN. Patient remains decanulated and doing well on Room Air. Patient is currently NPO for GI. Will defer dysphagia plan of care until patient is cleared to resume TF or a PO diet. Christina Limon MS, CCC/PRACTICE DIRECTOR Images from the original note were [...] sodium chloride 0.9 % 100 mL IVPB (Add-[place]), 3,000 mg, IntraVENous, q12h, Steve Lassiter MD, [...] Steve Lassiter MD, 5 mg at 01/21/25 6168 prochlorperazine (Compazine) injection 5 mg, 5 mg, [...] 4.3 4.4 CL 98 96* 94* CO2 22 24 25 BUN 91* 46* 53* CREATININE 4.31* 2.99* 4.18* GLUCOSE 68* 60* 70* CALCIUM 9.2 9.9 9.8 PROT -- -- 7.6 BILITOT -- -- 0.9 ALKPHOS -- -- 274* AST -- -- 51* ALT -- -- 44* PT/INR: Recent Labs 01/21/25 1452 01/21/258 INR 7.9* 8.1* IR Embolization 10/14/2024 IMPRESSION: [...] 10/12/24, Coumadin, last dose suspected 01/18/25 at [facility] Stage V sacral wound Necrotic left toes [...] Units 01/22/2541801/21/25 2348 01/21/25 1452 01/21/25 0908 01/21/25 0243 WBC AUTO 10*3/uL 10.6 -- -- 9.2 10.1 HEMOGLOBIN g/dL 8.0* 7.7* 7.1* 8.0* 8.3* HEMATOCRIT % 25.1* 24.5* 22.4* 25.3* 27.3* PLATELETS 10*3/uL 330 -- -- 353 365 Results from last 7 days Lab Units 01/22/2541801/21/25 0243 01/20/25 0514 SODIUM mmol/L 132* 135* 135* POTASSIUM [...] to breakdown of skin (HCC) 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[facility]) Leukocytosis Decubitus ulcer of sacral region, unstageable (HCC) Pneumonia of both lungs due to methicillin susceptible Staphylococcus aureus (MSSA) (HCC) Sacral osteomyelitis (CMS/HCC) (HCC) Acute respiratory failure with hypoxia ([facility]) [J96.01] Tracheostomy care ([facility]) [Z43.0] 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[facility]) 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 Complication of tracheostomy (CMS/HCC) ([facility]) I personally supervised the resident in the [...] MD Division of Trauma Department of Surgery [facility] ICU Progress Note Name: Jun Snyder : 1965(59 y.o.) Date: 01/22/25 Team: MICU Attending: Dr. Higgins Subjective: Hospital Summary: Mr Snyder is a 59 year old male who presented to [facility] 01/19 after inadvertent removal of his tracheostomy. He was transferred to [facility] ICU for surgical evaluation. On arrival he [...] Normal [] Scar/Lesion/Mass Inspection of teeth/lips/gums Dentition: [][place] Teeth []Dentures Lips/Gums: []Intact []Lesion Present Mucosa: [x][place] []Moist [x]Dry Neck: External Appearance Overall Appearance: [...] 24 hours- BMP: Recent Labs 01/20/25 0514 01/21/253 01/22/25 041 NA 135* 135* 132* K 4.8 4.3 [...] 1859 01/22/25 0005 01/22/25 0419 01/22/25 0554 GLUCOSE 68* 60* -- -- -- -- -- -- -- -- 70* -- POCGLU -- -- < > 67* 129* 107* 92 92 86 82 -- 81 < > = values in this interval not displayed. Procal: No results for input(s): PROCAL in the last 72 hours. CBC: Recent Labs 01/21/25 0243 01/21/25 0908 01/21/25 1452 01/21/25 2348 01/22/25418 WBC 10.1 9.2 -- -- 10.6 HGB 8.3* 8.0* 7.1* 7.7* 8.0* HCT 27.3* 25.3* 22.4* 24.5* 25.1* PLT 365 353 -- -- 330 MCV 88.9 87.5 -- -- 86.9 RDW 18.6* 18.6* -- -- 18.6* ABGs: No results for input(s): PHART, QQR8QNZ, PO2ART, USD8SGY, SO2ART, T1DYIYMU in the last 72 hours. Lactic Acid: No results for input(s): LACTATE in the last 72 hours. INR: Recent Labs 01/19/25 0652 01/21/25 1452 01/21/25 2348 INR 2.7* 7.9* 8.1* Cardiac Injury Profile: [...] Pulmonary and Critical Care Medicine Attending Pager #[phone] [facility] Progress Note SUBJECTIVE: Jun Snyder [...] sodium chloride 0.9 % 100 mL IVPB (Add-[place]), 3,000 mg, IntraVENous, q12h, Steve Lassiter MD, [...] Problem List Diagnosis Date Noted Severe malnutrition ([facility]) ([facility]) 01/19/2025 Complication of tracheostomy ([facility]) ([facility]) 01/19/2025 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 01/12/2025 Acute respiratory failure with hypoxia ([facility]) [J96.01] 01/08/2025 Tracheostomy care ([facility]) [Z43.0] 01/08/2025 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[facility]) 01/08/2025 Sacral osteomyelitis ([facility]/HCC) ([facility]) 01/03/2025 Pneumonia of both lungs due to methicillin susceptible Staphylococcus aureus (MSSA) ([facility]) 01/01/2025 Leukocytosis 12/30/2024 Decubitus ulcer of sacral region, unstageable ([facility]) 12/30/2024 Peritonitis due to fungus ([facility]) 11/30/2024 History of abdominal surgery 11/30/2024 Leg DVT (deep venous thromboembolism), acute, left ([facility]) 11/30/2024 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, 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 of skin ([facility]) 11/30/2024 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[facility]) 11/30/2024 Pleural effusion 11/28/2024 Gastric ulceration 2024 Atrial flutter, unspecified type ([facility]) 10/03/2024 RSV (acute bronchiolitis due to respiratory syncytial virus) 10/03/2024 Diverticulosis 10/08/2023 Nonrheumatic aortic valve stenosis 10/08/2023 Calcification of abdominal aorta ([facility]) 10/08/2023 Missed vaccination due to patient refusal 10/08/2023 Tobacco abuse 10/08/2023 Alcohol use disorder in remission 10/08/2023 Paroxysmal A-fib ([facility]) ([facility]) 08/18/2023 HTN (hypertension) 12/01/2022 ESRD on hemodialysis ([facility]) ([facility]) 10/26/2019 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 10/26/2019 Aortic stenosis 10/03/2024 Upper GI bleed 10/03/2024 S/P AVR 10/03/2024 Acute hypoxic respiratory failure ([facility]) 10/03/2024 Acute encephalopathy 10/03/2024 Pneumoperitoneum 10/03/2024 Anemia 12/30/2021 ASSESSMENT/PLAN: ESRD. HD MWF schedule Anemia. PRBC if Hb less than 7 GI bleed. Gastroenterology following Cindy Patel MD 01/21/2025 4:54 PM Family Communication Number Called: [phone] Name of Designated Family Floor Representative: Omar son I spoke with the individual listed above Family Floor Representative Updated on the Following: - Updated Omar [...] sodium chloride 0.9 % 100 mL IVPB (Add-[place]), 3,000 mg, IntraVENous, q12h, Steve Lassiter MD, [...] 5 mg, Per G Tube, Nightly PRN, Stvee Lassiter MD [Held by provider] metoprolol tartrate (Lopressor) tablet 25 mg, 25 mg, Per G Tube, BID, Steve Lassiter MD, 25 mg at 01/19/25 0916 midodrine (Proamatine) tablet 15 mg, 15 mg, Per G Tube, q6h, Steev Lassiter MD, 15 mg at 01/21/25 0234 [...] 5 mg, 5 mg, Oral, q4h PRN, Steev Lassiter MD, 5 mg at 01/19/25 1150 pantoprazole (ProtoNix) 80 mg in sodium chloride 0.9 % 100 mL (0.8 mg/mL) infusion, 8 mg/hr, IntraVENous, Continuous, Inés Cotto PA-C, Last Rate: 10 mL/hr at 01/21/25317, 8 mg/hr at 01/21/25317 [Held by provider] warfarin (Coumadin) tablet 2 [...] 4.8 4.3 CL 95* 98 96* CO2 BUN 80* 91* 46* CREATININE 3.50* 4.31* [...] 10/12/24, Coumadin, last dose suspected 01/18/25 at [facility] Acute Right occipital ICH- 10/22/24 ESRD on [...] portion of medical decision making. Seen at beside for bleeding. Unclear if wound or GI [...] proceed with planned procedure. Parth VASQUEZ [facility] Progress Note SUBJECTIVE: Jun Snyder [...] sodium chloride 0.9 % 100 mL IVPB (Add-[place]), 3,000 mg, IntraVENous, q12h, Steve Lassiter MD, [...] Problem List Diagnosis Date Noted Severe malnutrition ([facility]) ([facility]) 01/19/2025 Complication of tracheostomy ([facility]) ([facility]) 01/19/2025 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 01/12/2025 Acute respiratory failure with hypoxia ([facility]) [J96.01] 01/08/2025 Tracheostomy care ([facility]) [Z43.0] 01/08/2025 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[facility]) 01/08/2025 Sacral osteomyelitis ([facility]) ([facility]) 01/03/2025 Pneumonia of both lungs due to methicillin susceptible Staphylococcus aureus (MSSA) ([facility]) 01/01/2025 Leukocytosis 12/30/2024 Decubitus ulcer of sacral region, unstageable ([facility]) 12/30/2024 Peritonitis due to fungus ([facility]) 11/30/2024 History of abdominal surgery 11/30/2024 Leg DVT (deep venous thromboembolism), acute, left ([facility]) 11/30/2024 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, 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 of skin ([facility]) 11/30/2024 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[facility]) 11/30/2024 Pleural effusion 11/28/2024 Gastric ulceration 2024 Atrial flutter, unspecified type ([facility]) 10/03/2024 RSV (acute bronchiolitis due to respiratory syncytial virus) 10/03/2024 Diverticulosis 10/08/2023 Nonrheumatic aortic valve stenosis 10/08/2023 Calcification of abdominal aorta ([facility]) 10/08/2023 Missed vaccination due to patient refusal 10/08/2023 Tobacco abuse 10/08/2023 Alcohol use disorder in remission 10/08/2023 Paroxysmal A-fib ([facility]) ([facility]) 08/18/2023 HTN (hypertension) 12/01/2022 ESRD on hemodialysis (CMS/HCC) ([facility]) 10/26/2019 IgA nephropathy determined by biopsy of [...] original note were not included. OCCUPATIONAL THERAPY [facility] Initial Evaluation Name/MRN: Jair Snyder ([id number]) Evaluation Date: 01/20/2025 Date of : 1965 Admission Date: 01/19/2025 2:13 AM Age: 59 y.o. Room/Bed: [facility] A Discharge Recommendation: Longterm Facility Other: DME TBD Assessment IMPRESSION: Pt [...] planned discharge. Admitting Diagnosis: Complication of tracheostomy (CMS/HCC) ([facility]) Performance Deficits /Impairments: Decreased Functional Mobility, Decreased [...] History: Diagnosis Date Acute renal failure (ARF) ([facility]) 10/19/2019 Anemia 12/30/2021 Calcification of abdominal aorta ([facility]) 10/08/202309/[address] abd Diverticulosis 10/08/2023 ESRD on hemodialysis ([facility]) ([facility]) 10/26/2019 Hemodialysis patient ([facility]) ([facility]) HTN (hypertension) 12/01/2022 Hypertension IgA nephropathy 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 10/26/2019 Missed vaccination due to patient refusal 10/08/2023 Has a number of non-scientific based beliefs which interfere with his understanding and acceptance of the medical benefit of vaccination. Nonrheumatic aortic valve stenosis 10/08/2023 Paroxysmal A-fib ([facility]) ([facility]) 08/18/2023 Tobacco abuse 10/08/2023 Past Surgical History: Past Surgical History: Procedure Laterality Date APPENDECTOMY CARDIAC CATHETERIZATION N/A 10/09/2024 Performed by Bob Watson MD at [facility] Cardiac Cath/EP Lab CARDIAC CATHETERIZATION Bilateral 11/01/2024 Performed by Bob Watson MD at [facility] Cardiac Cath/EP Lab CARDIAC CATHETERIZATION N/A 11/01/2024 Performed by Bob Watson MD at [facility] Cardiac Cath/EP Lab FISTULAGRAM (HISTORICAL) Left 09/15/2021 LEFT UPPER ARM HX AV FISTULA CREATION IR EMBOLIZATION 10/14/2024 IR EMBOLIZATION 10/14/2024 [facility] SPECIAL PROCEDURES IR FISTULAGRAM 08/07/2022 IR FISTULAGRAM 08/07/2022 [facility] IR IMAGING TONSILLECTOMY (HISTORICAL) Admission Diagnosis: Patient Active Problem List Diagnosis Date Noted Severe malnutrition ([facility]) ([facility]) 01/19/2025 Complication of tracheostomy ([facility]) ([facility]) 01/19/2025 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 01/12/2025 Acute respiratory failure with hypoxia ([facility]) [J96.01] 01/08/2025 Tracheostomy care ([facility]) [Z43.0] 01/08/2025 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[facility]) 01/08/2025 Sacral osteomyelitis ([facility]) ([facility]) 01/03/2025 Pneumonia of both lungs due to methicillin susceptible Staphylococcus aureus (MSSA) ([facility]) 01/01/2025 Leukocytosis 12/30/2024 Decubitus ulcer of sacral region, unstageable ([facility]) 12/30/2024 Peritonitis due to fungus ([facility]) 11/30/2024 History of abdominal surgery 11/30/2024 Leg DVT (deep venous thromboembolism), acute, left ([facility]) 11/30/2024 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, 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 of skin ([facility]) 11/30/2024 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[facility]) 11/30/2024 Pleural effusion 11/28/2024 Gastric ulceration 2024 Atrial flutter, unspecified type ([facility]) 10/03/2024 RSV (acute bronchiolitis due to respiratory syncytial virus) 10/03/2024 Diverticulosis 10/08/2023 Nonrheumatic aortic valve stenosis 10/08/2023 Calcification of abdominal aorta ([facility]) 10/08/2023 Missed vaccination due to patient refusal 10/08/2023 Tobacco abuse 10/08/2023 Alcohol use disorder in remission 10/08/2023 Paroxysmal A-fib ([facility]) ([facility]) 08/18/2023 HTN (hypertension) 12/01/2022 ESRD on hemodialysis ([facility]) ([facility]) 10/26/2019 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 10/26/2019 Aortic stenosis 10/03/2024 Upper GI bleed 10/03/2024 S/P AVR 10/03/2024 Acute hypoxic respiratory failure ([facility]) 10/03/2024 Acute encephalopathy 10/03/2024 Pneumoperitoneum 10/03/2024 Anemia [...] events, decreased short term memory, and decreased fci memory - Safety judgement: decreased awareness of [...] Poor historian. Per pt he came from [facility]. Pt unable to recall living situation prior to [facility], states I've been in and out of [...] Daily Activity Raw Score: 10 ADL Inpatient CMS G-Code Modifier: CL Plan [...] prepare for ADLs. Start: 01/20/25 Expected End: 02/17/25 Therapy Time Individual Co-Treatment Co-Evaluation Time In 1429 Time Out 1455 Minutes 26 Timed Code Treatment Minutes: 8 Minutes (x1 ther act) Ro Farnsworth OT Patient's Occupational Therapy Plan of Care supervision is transferred to a [facility] Therapy Services Occupational Therapist. Goals and/or treatment [...] diverticulosis, IgA nephropathy, severe that presented to [facility] ED from a facility due to trach dislodgement. Per patient, was trying to disconnect his vent to transfer to another room but accidentally pulled out his tracheostomy. This event happened approximately 45 minutes before ED arrival. ED attempted to place tracheostomy tube back but were unsuccessful. Decision was made to transfer patient to [facility] ICU for further airway management and determine if replacement tracheostomy is needed. Was observed at [facility] ICU initially and transferred to [facility] on 01/20. Noted removal of trach. 01/20: [...] History: Diagnosis Date Acute renal failure (ARF) ([facility]) 10/19/2019 Anemia 12/30/2021 Calcification of abdominal aorta ([facility]) 10/08/202309/[address] abd Diverticulosis 10/08/2023 ESRD on hemodialysis ([facility]) ([facility]) 10/26/2019 Hemodialysis patient ([facility]) ([facility]) HTN (hypertension) 12/01/2022 Hypertension IgA nephropathy 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 10/26/2019 Missed vaccination due to patient refusal 10/08/2023 Has a number of non-scientific based beliefs which interfere with his understanding and acceptance of the medical benefit of vaccination. Nonrheumatic aortic valve stenosis 10/08/2023 Paroxysmal A-fib ([facility]) ([facility]) 08/18/2023 Tobacco abuse 10/08/2023 LABS: CBC: Recent [...] and limit nighttime disturbances - DVT prophylaxis: [facility] 02-01-2025 Note [facility] Hospital course Narrative Discharge Summary Jun Snyder : 1965 ADMIT DATE: 01/19/2025 DISCHARGE DATE: 02/01/2025 PRIMARY CARE PHYSICIAN: Leilani Troncoso VISIT STATUS: Admission CODE STATUS: Full Code DISCHARGE DIAGNOSES: Principal Problem: Complication of tracheostomy (CMS/HCC) (HCC) Active Problems: Severe malnutrition (CMS/HCC) ([facility]) BRBPR (bright red blood per rectum) HOSPITAL COURSE: Jun Snyder is a 59 y.o. male who who presented to [facility] 01/19 after inadvertent removal of his tracheostomy. He was transferred to [facility] ICU for surgical evaluation. On arrival he [...] HD successfully. hemodynamically stable. Transferred out to [facility] 01/27 ID following for sacral osteomyelitis, s/p wound debridement to bone on 01/02, cultures grew E faecalis and Clostridium, continue with renally dosed ampicillin sulbactam for 6 weeks course through 02/13/2025, needs tunneled line, status post IR CVC tunneled line on 01/29 Nephrology following, on dialysis PRACTICE DIRECTOR following PT/OT recommends SNF Patient will [...] History: Diagnosis Date Acute renal failure (ARF) ([facility]) 10/19/2019 Anemia 12/30/2021 Calcification of abdominal aorta ([facility]) 10/08/202309/[address] abd Diverticulosis 10/08/2023 ESRD on hemodialysis ([facility]) ([facility]) 10/26/2019 Hemodialysis patient ([facility]) ([facility]) HTN (hypertension) 12/01/2022 Hypertension IgA nephropathy 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 10/26/2019 Missed vaccination due to patient refusal 10/08/2023 Has a number of non-scientific based beliefs which interfere with his understanding and acceptance of the medical benefit of vaccination. Nonrheumatic aortic valve stenosis 10/08/2023 Paroxysmal A-fib ([facility]) ([facility]) 08/18/2023 Tobacco abuse 10/08/2023 Adult diet Dysphagia [...] LIVER PROFILE: Recent Labs 01/31/25 0010 02/01/25 011 AST 31 32 ALT 11 10 BILITOT [...] 20 mL/hr, Last Rate: 20 mL/hr (01/30/25 2217) Assessment Data: (CAT1) Reviewed 2 notes from [...] by ID -S/p tunneled central line placement -PRACTICE DIRECTOR follow, dysphagia diet -PT OT DC recommend SNF SIGNIFICANT DIAGNOSTIC STUDIES: IR cvc tunneled central line placement [[id number]] Collected: 01/30/25 143 Order Status: Completed Updated: 01/30/251438 Narrative: Patient Name: JUN SNYDER : 1965 Exam Date/Time: 01/30/2025 14:00 Procedure: IR CVC [...] FL modified barium with video and speech [[id number]] Collected: 01/25/25 1328 Order Status: Completed Updated: 01/25/25 1513 Narrative: [facility] 1965 [id number] Exam Date/Time: 01/25/2025 11:42 Procedure: FL MODIFIED [...] 3:12 PM EDT XR chest 1 view [[id number]] Collected: 01/24/25 0158 Order Status: Completed Updated: [...] pelvis angiogram w and/or wo IV contrast [[id number]] Collected: 01/20/25 1849 Order Status: Completed Updated: 01/20/25 190 Narrative: [...] 7:02 PM EDT XR chest 1 view [[id number]] Collected: 01/19/25614 Order Status: Completed Updated: 01/19/25616 Narrative: Patient Name: JUN SNYDER : 1965 [...] 6:16 AM EDT XR chest 1 view [[id number]] Collected: 01/18/25 1242 Order Status: Completed Updated: [...] days. CONTINUE taking these medications epoetin rowan-epbx 36339 UNIT/ML injection Commonly known as: Retacrit Inject [...] Complexity: follow up within 7-14 calendar days (12933) [] Severe Complexity: follow up within 7 calendar days (01973) FOLLOW UP TESTING, PENDING RESULTS OR REFERRALS AT TRANSITIONAL CARE VISIT: [] Yes [] No PENDING STUDIES: DISPOSITION: Skilled Facility FACILITY/HOME CARE AGENCY NAME: Follow up with [facility] [address] [place] [id number] Gurdeep Cruz MD [address] [place] [address] [address] [facility] [address] Schedule an appointment as soon as possible [...] 02/01/2025, 10:29 AM documented in this encounter [facility] 01-30-2025 Note Patient receiving ot her care, will attempt smoking cessation counseling at a later date. [facility] 01-30-2025 Note Problem: Pain - Adul t Goal: Verbalizes/displays adequate comfort level or baseline comfort level Outcome: Progressing Problem: Safety - Adult Goal: Free from fall injury Outcome: Progressing [facility] 01-29-2025 Telephone encount er Note Chart reviewed, patient appears to be sensitive to warfarin at this time and I wouldn't be able to guarantee INR remains less than 3, so opted to hold dose today. I canceled order. [facility] Work Phone: 01-29-2025 Miscellaneous Notes Formattin g of this note might be different from the original. Chart reviewed, patient appears to be sensitive to warfarin at this time and I wouldn't be able to guarantee INR remains less than 3, so opted to hold dose today. I canceled order. SWEETIE Singh with [facility] called to inform [facility] patient is scheduled to have a tunnel cath line tomorrow and Dr. Lira is inquiring if patient should hold his warfarin 0.[address] Lira does not want INR to go above to 3.0 tomorrow. Staffed with Neelam, PharmD, BCACP, CACP, she will cancel patient's warfarin dose tomorrow and SAILAJA will make adjustments as needed tomorrow. documented in this encounter [facility] 01-29-2025 Telephone encount er Note SWEETIE Singh with [facility] called to inform [facility] patient is scheduled to have a tunnel cath line tomorrow and Dr. Lira is inquiring if patient should hold his warfarin 0.[address] Lira does not want INR to go above to 3.0 tomorrow. Staffed with Neelam, LauraD, BCACP, CACP, she will cancel patient's warfarin dose tomorrow and SAILAJA will make adjustments as needed tomorrow. [facility] 01-26-2025 Hospital Discharg e instructions Kristine Donato [...] Extended Emergency Contact Information Primary Emergency Contact: mOar Snyder Mobile Relation: Child Secondary Emergency Contact: Toma Mcneil Mobile Relation: Partner Past Surgical History: Past Surgical History: Procedure Laterality Date APPENDECTOMY CARDIAC CATHETERIZATION N/A 10/09/2024 Performed by Bob Watson MD at [facility] Cardiac Cath/EP Lab CARDIAC CATHETERIZATION Bilateral 11/01/2024 Performed by Bob Watson MD at [facility] Cardiac Cath/EP Lab CARDIAC CATHETERIZATION N/A 11/01/2024 Performed by Bob Watson MD at [facility] Cardiac Cath/EP Lab COLONOSCOPY N/A 01/24/2025 Performed by Chadd Davis MD at [facility] ENDOSCOPY FISTULAGRAM (HISTORICAL) Left 09/15/2021 LEFT UPPER ARM HX AV FISTULA CREATION IR EMBOLIZATION 10/14/2024 IR EMBOLIZATION 10/14/2024 [facility] SPECIAL PROCEDURES IR FISTULAGRAM 08/07/2022 IR FISTULAGRAM 08/07/2022 [facility] IR IMAGING TONSILLECTOMY (HISTORICAL) Immunization History: Immunization [...] (Chronic) Pleural effusion Peritonitis due to fungus ([facility]) History of abdominal surgery Leg DVT (deep venous thromboembolism), acute, left (HCC) 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, 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) 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[facility]) Leukocytosis Decubitus ulcer of sacral region, unstageable ([facility]) Pneumonia of both lungs due to methicillin susceptible Staphylococcus aureus (MSSA) ([facility]) Sacral osteomyelitis (CMS/HCC) (HCC) Acute respiratory failure with hypoxia ([facility]) [J96.01] Tracheostomy care ([facility]) [Z43.0] 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[facility]) 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 Anemia Aortic stenosis Upper GI bleed S/P AVR Acute hypoxic respiratory failure ([facility]) Acute encephalopathy Pneumoperitoneum BRBPR (bright red blood [...] Total assistance Toileting Total assistance Feeding Independent Fire Hydrant Operator Independent Med Delivery yes Wound Care Documentation and Therapy: Wound/Incision 11/13/24 Pressure Injury Sacrum (Active) Wound Image 01/19/25 0500 Site Assessment [place];Red 01/26/25 1200 [place]-Wound Assessment Intact 01/26/25 0355 [...] all that are sent with patient): emmanuel RN SIGNATURE: MANAGEMENT/SOCIAL WORK SECTION Inpatient Status Date: 01/21/25 Discharging to Facility/ Agency Name: [facility] Address: [address] [place] [address] Fax: Dialysis Facility (if applicable) Name: Address: Dialysis Schedule: [facility] Phone: Fax: Wrecking Crane Engine Operator/Rotary Peel Oven Tender signature: ICIAN SECTION Name: Jun Snyder Prognosis: fair Condition at Discharge: stable Rehab Potential (if transferring to Rehab): fair Recommended Labs or Other Treatments After Discharge: cbc,cmp, PT/INR for warfarin, C/W Ampicillin-Sulbactam till 02/13, F/U with ID The individual is being admitted to a nursing facility directly from an [facility] or a unit of a [facility] that is not operated by or licensed by [facility] under section 5119.14 or 5160-3-15.1 5 The individual requires the level of services provided by a nursing facility for the condition for which he or she was treated in the hospital and, Physician Certification: I certify the above information and transfer of Jun Snyder is necessary for the continuing treatment of the diagnosis listed and that he requires [facility] facility for less than 30 days. Update Admission H&P: No change in H&P PHYSICIAN SIGNATURE: documented in this encounter [facility] 01-24-2025 Note [facility] 01-24-2025 Procedure note Images from the original [...] Safety: The patient was placed on a superintendent fish hatchery and vital signs, pulse oximetry, and level [...] Kuo, was physically present and supervised all farncis elements of the procedure. documented in this encounter [facility] 01-23-2025 Consult note Associated Order (s): INPATIENT CONSULT TO WOUND CARE PROVIDERS Images from the original note were not included. [facility] Wound Care Re-CONSULT Note Jun Snyder AGE: [...] diverticulosis, IgA nephropathy, severe that presented to [facility] ED from a facility due to trach [...] History: Diagnosis Date Acute renal failure (ARF) ([facility]) 10/19/2019 Anemia 12/30/2021 Calcification of abdominal aorta ([facility]) 10/08/202309/[address] abd Diverticulosis 10/08/2023 ESRD on hemodialysis ([facility]) ([facility]) 10/26/2019 Hemodialysis patient ([facility]) ([facility]) HTN (hypertension) 12/01/2022 Hypertension IgA nephropathy 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 10/26/2019 Missed vaccination due to patient refusal 10/08/2023 Has a number of non-scientific based beliefs which interfere with his understanding and acceptance of the medical benefit of vaccination. Nonrheumatic aortic valve stenosis 10/08/2023 Paroxysmal A-fib ([facility]) ([facility]) 08/18/2023 Tobacco abuse 10/08/2023 PAST SURGICAL HISTORY Past Surgical History: Procedure Laterality Date APPENDECTOMY CARDIAC CATHETERIZATION N/A 10/09/2024 Performed by Bob Watson MD at [facility] Cardiac Cath/EP Lab CARDIAC CATHETERIZATION Bilateral 11/01/2024 Performed by Bob Watson MD at [facility] Cardiac Cath/EP Lab CARDIAC CATHETERIZATION N/A 11/01/2024 Performed by Bob Watson MD at [facility] Cardiac Cath/EP Lab FISTULAGRAM (HISTORICAL) Left 09/15/2021 LEFT UPPER ARM HX AV FISTULA CREATION IR EMBOLIZATION 10/14/2024 IR EMBOLIZATION 10/14/2024 [facility] SPECIAL PROCEDURES IR FISTULAGRAM 08/07/2022 IR FISTULAGRAM 08/07/2022 [facility] IR IMAGING TONSILLECTOMY (HISTORICAL) FAMILY HISTORY Family [...] Medication Sig Dispense Refill epoetin rowan-epbx (Retacrit) [id number] UNIT/ML injection Inject 0.79 mL (7,900 Units) [...] to follow Recommend to follow up at [facility] Outpatient wound care center after hospital discharge. [...] Gill DO at 01/29/2025 4:37 PM EDT [facility] Anticoagulation Management Service (SAILAJA) Inpatient Warfarin Consult HPI: Jun Snyder is a 59 y.o. male admitted on 01/19/2025 for Complication of tracheostomy ([facility]) ([facility]) [J95.00] Past Medical History: Diagnosis Date Acute renal failure (ARF) ([facility]) 10/19/2019 Anemia 12/30/2021 Calcification of abdominal aorta ([facility]) 10/08/202309/[address] abd Diverticulosis 10/08/2023 ESRD on hemodialysis ([facility]) ([facility]) 10/26/2019 Hemodialysis patient ([facility]) ([facility]) HTN (hypertension) 12/01/2022 Hypertension IgA nephropathy 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 10/26/2019 Missed vaccination due to patient refusal 10/08/2023 Has a number of non-scientific based beliefs which interfere with his understanding and acceptance of the medical benefit of vaccination. Nonrheumatic aortic valve stenosis 10/08/2023 Paroxysmal A-fib ([facility]) ([facility]) 08/18/2023 Tobacco abuse 10/08/2023 Patient is on [...] and plan for colonoscopy tomorrow, please notify [facility] when able to resume anticoagulation. 2. Monitor for s/s of bleeding and drug interactions. Will adjust dose accordingly 3. Will facilitate f/u at [facility] upon discharge Fatuma Odonnell RPh, PharmD [facility] is available daily [phone] via [employer] Chat. If no response on [employer] Chat then please page [phone]. Images from the original note were not [...] AV replacement Supratherapeutic INR - [facility] Director valve in 09/2024 - coumadin held due [...] Palliative Care IDT members involved: Palliative Care Rotary Peel Oven Tender Discussed the plan of care with the [...] to have bile peritonitis 11/28/24: transferred to [facility] He ended up developing sacral ulcer and osteomyelitis at [facility]. He then ended up dislodging his tracheostomy, and was brought to [facility] ED for further care. Palliative care consulted [...] the last several months, with being in [facility] and now back into the hospital. I [...] child(rocky) Living status: SNF Work history: unknown status: unknown Presybeterian annette: Non-Oriental Orthodox ROS: See palliative care ROS/ESAS below; All other systems were reviewed and are negative. [place] Symptom Assessment Score Gr[place] Score Pain Score (if non-verbal, add .FLACC [...] History: Diagnosis Date Acute renal failure (ARF) ([facility]) 10/19/2019 Anemia 12/30/2021 Calcification of abdominal aorta ([facility]) 10/08/202309/[address] abd Diverticulosis 10/08/2023 ESRD on hemodialysis ([facility]) ([facility]) 10/26/2019 Hemodialysis patient ([facility]) ([facility]) HTN (hypertension) 12/01/2022 Hypertension IgA nephropathy 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 10/26/2019 Missed vaccination due to patient refusal 10/08/2023 Has a number of non-scientific based beliefs which interfere with his understanding and acceptance of the medical benefit of vaccination. Nonrheumatic aortic valve stenosis 10/08/2023 Paroxysmal A-fib (CMS/HCC) (HCC) 08/18/2023 Tobacco abuse 10/08/2023 Past Surgical History: Procedure Laterality Date APPENDECTOMY CARDIAC CATHETERIZATION N/A 10/09/2024 Performed by Bob Watson MD at [facility] Cardiac Cath/EP Lab CARDIAC CATHETERIZATION Bilateral 11/01/2024 Performed by Bob Watson MD at [facility] Cardiac Cath/EP Lab CARDIAC CATHETERIZATION N/A 11/01/2024 Performed by Bob Watson MD at [facility] Cardiac Cath/EP Lab FISTULAGRAM (HISTORICAL) Left 09/15/2021 LEFT UPPER ARM HX AV FISTULA CREATION IR EMBOLIZATION 10/14/2024 IR EMBOLIZATION 10/14/2024 [facility] SPECIAL PROCEDURES IR FISTULAGRAM 08/07/2022 IR FISTULAGRAM [...] Transition Note Initiated: yes Tex Cotto MD [facility] Anticoagulation Management Service ([facility]) Inpatient Warfarin Consult HPI: Jun Snyder is a 59 y.o. male admitted on 01/19/2025 for Complication of tracheostomy ([facility]) ([facility]) [J95.00] Past Medical History: Diagnosis Date Acute renal failure (ARF) ([facility]) 10/19/2019 Anemia 12/30/2021 Calcification of abdominal aorta ([facility]) 10/08/202309/[address] abd Diverticulosis 10/08/2023 ESRD on hemodialysis ([facility]) ([facility]) 10/26/2019 Hemodialysis patient ([facility]) ([facility]) HTN (hypertension) 12/01/2022 Hypertension IgA nephropathy 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 10/26/2019 Missed vaccination due to patient refusal 10/08/2023 Has a number of non-scientific based beliefs which interfere with his understanding and acceptance of the medical benefit of vaccination. Nonrheumatic aortic valve stenosis 10/08/2023 Paroxysmal A-fib ([facility]) ([facility]) 08/18/2023 Tobacco abuse 10/08/2023 Patient is on warfarin for Afib, mechanical AVR and has a goal INR 2.0 - 3.0. Warfarin is currently managed by facility, has yet to be seen by [facility]. Pt's home dose of warfarin is not [...] possible GIB and elevated INR, please notify [facility] when able to resume anticoagulation. 2. Monitor for s/s of bleeding and drug interactions. Will adjust dose accordingly 3. Will facilitate f/u at [facility] upon discharge Fatuma Odonnell RPh, PharmD [facility] is available daily [phone] via [employer] Chat. If no response on Epic Chat then please page [phone]. [facility] Anticoagulation Management Service ([facility]) Inpatient Warfarin Consult HPI: Jun Snyder is a 59 y.o. male admitted on 01/19/2025 for Complication of tracheostomy ([facility]) ([facility]) [J95.00] Past Medical History: Diagnosis Date Acute renal failure (ARF) ([facility]) 10/19/2019 Anemia 12/30/2021 Calcification of abdominal aorta ([facility]) 10/08/202309/[address] abd Diverticulosis 10/08/2023 ESRD on hemodialysis ([facility]) ([facility]) 10/26/2019 Hemodialysis patient ([facility]) ([facility]) HTN (hypertension) 12/01/2022 Hypertension IgA nephropathy 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 10/26/2019 Missed vaccination due to patient refusal 10/08/2023 Has a number of non-scientific based beliefs which interfere with his understanding and acceptance of the medical benefit of vaccination. Nonrheumatic aortic valve stenosis 10/08/2023 Paroxysmal A-fib ([facility]) ([facility]) 08/18/2023 Tobacco abuse 10/08/2023 Patient is on warfarin for Afib, mechanical AVR and has a goal INR 2.0 - 3.0. Warfarin is currently managed by facility, has yet to be seen by [facility]. Pt's home dose of warfarin is not [...] admission. Holding warfarin for GIB, please notify [facility] when able to resume anticoagulation. 2. Monitor for s/s of bleeding and drug interactions. Will adjust dose accordingly 3. Will facilitate f/u at [facility] upon discharge Darryn Wagner RPh, PharmD [facility] is available daily [phone] via [employer]. If no response on [employer] Chat then please page [phone]. Associated Order(s): IP CONSULT TO GENERAL SURGERY [...] History: Diagnosis Date Acute renal failure (ARF) ([facility]) 10/19/2019 Anemia 12/30/2021 Calcification of abdominal aorta ([facility]) 10/08/202309/[address] abd Diverticulosis 10/08/2023 ESRD on hemodialysis (CMS/HCC) ([facility]) 10/26/2019 Hemodialysis patient ([facility]) ([facility]) HTN (hypertension) 12/01/2022 Hypertension IgA nephropathy 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 10/26/2019 Missed vaccination due to patient refusal 10/08/2023 Has a number of non-scientific based beliefs which interfere with his understanding and acceptance of the medical benefit of vaccination. Nonrheumatic aortic valve stenosis 10/08/2023 Paroxysmal A-fib ([facility]) ([facility]) 08/18/2023 Tobacco abuse 10/08/2023 Past Surgical History: Procedure Laterality Date APPENDECTOMY CARDIAC CATHETERIZATION N/A 10/09/2024 Performed by Bob Watson MD at [facility] Cardiac Cath/EP Lab CARDIAC CATHETERIZATION Bilateral 11/01/2024 Performed by Bob Watson MD at [facility] Cardiac Cath/EP Lab CARDIAC CATHETERIZATION N/A 11/01/2024 Performed by Bob Watson MD at [facility] Cardiac Cath/EP Lab FISTULAGRAM (HISTORICAL) Left 09/15/2021 LEFT UPPER ARM HX AV FISTULA CREATION IR EMBOLIZATION 10/14/2024 IR EMBOLIZATION 10/14/2024 [facility] SPECIAL PROCEDURES IR FISTULAGRAM 08/07/2022 IR FISTULAGRAM 08/07/2022 [facility] IR IMAGING TONSILLECTOMY (HISTORICAL) Medications Prior to Admission: Current Facility-Administered Medications Medication Dose Route Frequency Provider Last Rate Last Admin acetaminophen (Tylenol) tablet 1,000 mg 1,000 mg Oral q8h PRN Steve Lassiter MD 1,000 mg at 01/19/25 1540 ampicillin-sulbactam (Unasyn) 3,000 mg in sodium chloride 0.9 % 100 mL IVPB (Add-[place]) 3,000 mg IntraVENous q12h Steve Lassiter MD [...] mL injection 40 mg IntraVENous BID [place], Phenylephrine HCl (Pressors) 1 MG/10ML [...] Patient Unable To Answer (12/01/2024) Received from [facility] Overall Financial Resource Strain (CARDIA) Difficulty of Paying Living Expenses: Patient unable to answer Food Insecurity: Patient Unable To Answer (12/01/2024) Received from [facility] Medical Hunger Vital Sign Worried About Running Out of Food in the Last Year: Patient unable to answer Ran Out of Food in the Last Year: Patient unable to answer Transportation Needs: No Transportation Needs (01/18/2025) Received from [facility] Transportation Source Has lack of transportation kept you from medical appointments or from getting medications?: No Has lack of transportation kept you from meetings, work, or from getting things needed for daily living?: No Stress: No Stress Concern Present (01/18/2025) Received from [facility] [employer] Occupational Health - Occupational Stress Questionnaire Feeling of Stress : Not at all Social Connections: Patient Unable To Answer (12/01/2024) Received from [facility] Medical Social Connection and Isolation Panel [NHANES] Frequency of Communication with Friends and Family: Patient unable to answer Frequency of Social Gatherings with Friends and Family: Patient unable to answer Attends Presybeterian Services: Patient unable to answer Active Member of Clubs or Organizations: Patient unable to answer Attends Club or Organization Meetings: Patient unable to answer Marital Status: Patient unable to answer Intimate Partner Violence: Patient Unable To Answer (11/28/2024) Received from [facility] Medical Domestic Abuse Assessment Do you feel [...] LIPASE IMAGING: POCT glucose meter Performed by: [facility], [address] [place] [id number] CLIA ID: [id number] POCT glucose meter Performed by: [facility], [address] [place] [id number] CLIA ID: [id number] POCT glucose meter Performed by: [facility], [address] [place] [id number] CLIA ID: [id number] POCT glucose meter Performed by: [facility], [address] [place] [id number] CLIA ID: [id number] POCT glucose meter Performed by: [facility], [address] [place] [id number] CLIA ID: [id number] POCT glucose meter Performed by: [facility], [address] [place] [id number] CLIA ID: [id number] ASSESSMENT AND PLAN: Jun Snyder is a [...] Brenton Goldstein MD General Surgery PGY-1 Pager #[phone] Cosigned by Tex Brush MD at 01/22/2025 6:07 AM EDT Associated attestation - Tex Brush MD - 01/22/2025 6:07 AM EDT ATTENDING ADDENDUM Active Diagnoses/Problems this Admission: Patient Active Problem List Diagnosis Anemia Paroxysmal A-fib ([facility]/HCC) ([facility]) HTN (hypertension) ESRD on hemodialysis ([facility]/HCC) ([facility]) 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 Diverticulosis Nonrheumatic aortic valve stenosis Calcification of abdominal aorta ([facility]) Missed vaccination due to patient refusal Tobacco abuse Alcohol use disorder in remission Atrial flutter, unspecified type ([facility]) RSV (acute bronchiolitis due to respiratory syncytial virus) Aortic stenosis Upper GI bleed S/P AVR Acute hypoxic respiratory failure ([facility]) Acute encephalopathy Pneumoperitoneum Gastric ulceration Severe malnutrition (CMS/HCC) ([facility]) Pleural effusion Peritonitis due to fungus ([facility]) History of abdominal surgery Leg DVT (deep venous thromboembolism), acute, left ([facility]) 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, 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 of skin ([facility]) 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[facility]) Leukocytosis Decubitus ulcer of sacral region, unstageable ([facility]) Pneumonia of both lungs due to methicillin susceptible Staphylococcus aureus (MSSA) ([facility]) Sacral osteomyelitis (CMS/HCC) ([facility]) Acute respiratory failure with hypoxia ([facility]) [J96.01] Tracheostomy care ([facility]) [Z43.0] 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[facility]) 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 Since patient [...] Normal [] Scar/Lesion/Mass Inspection of teeth/lips/gums Dentition: [][place] Teeth []Dentures Lips/Gums: [x]Intact []Lesion Present Mucosa: [x][place] []Moist [x]Dry Neck: External Appearance Overall Appearance: [...] Plan: Principal Problem: Complication of tracheostomy (CMS/HCC) ([facility]) Active Problems: Severe malnutrition (CMS/HCC) ([facility]) Assessment: Rectal bleeding with concern for GIB [...] transfer GI Prophylaxis: Pantoprazole IV DVT Prophylaxis: SCDs BMI Classification: Body mass index is 18.63 [...] 2:43 PM I have personally performed a [id number]-[id number] diagnostic evaluation on this patient on date of service 01/21/2025. History, labs, imaging studies, and electronic medical record have been reviewed by me. This note documented by the [x]packing house laborer []ARMIN reflects my history, exam, and medical decision making. I have reviewed and agree with the care plan. Changes were made in the orders as necessary. ROS documentation was reviewed and negative unless otherwise stated in HPI. Additional pertinent interval history, ROS, and physical exam findings: Mr Snyder is a 59 year old male who presented to [facility] 01/19 after inadvertent removal of his tracheostomy. He was transferred to [facility] ICU for surgical evaluation. On arrival he [...] maintain >7 -Hold coumadin -Continue protonix bid -SALES AND MARKETING ENGINEER per nephrology, will appreciate recs -Consult general [...] Abhishek gastrostomy tube placement, who presented to [facility] on 01/19/25 as a transfer from [facility] Per patient, was trying to disconnect his vent to transfer to another room but accidentally pulled out his tracheostomy. This event happened approximately 45 minutes before ED arrival. ED attempted to place tracheostomy tube back but were unsuccessful. Decision was made to transfer patient to [facility] ICU for further airway management and determine if replacement tracheostomy is needed. Patient was admitted to the MICU-01/19 where he was evaluated by general surgery for re-do tracheostomy and determined to be saturating appropriately on room air without need for re-placement. Patient was transferred out of the MICU for potential discharge back to he fci facility. The MICU is consulted now for [...] History: Diagnosis Date Acute renal failure (ARF) ([facility]) 10/19/2019 Anemia 12/30/2021 Calcification of abdominal aorta ([facility]) 10/08/202309/[address] abd Diverticulosis 10/08/2023 ESRD on hemodialysis ([facility]) ([facility]) 10/26/2019 Hemodialysis patient ([facility]) ([facility]) HTN (hypertension) 12/01/2022 Hypertension IgA nephropathy 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 10/26/2019 Missed vaccination due to patient refusal 10/08/2023 Has a number of non-scientific based beliefs which interfere with his understanding and acceptance of the medical benefit of vaccination. Nonrheumatic aortic valve stenosis 10/08/2023 Paroxysmal A-fib ([facility]) ([facility]) 08/18/2023 Tobacco abuse 10/08/2023 Past Surgical History: Procedure Laterality Date APPENDECTOMY CARDIAC CATHETERIZATION N/A 10/09/2024 Performed by Bob Watson MD at [facility] Cardiac Cath/EP Lab CARDIAC CATHETERIZATION Bilateral 11/01/2024 Performed by Bob Watson MD at [facility] Cardiac Cath/EP Lab CARDIAC CATHETERIZATION N/A 11/01/2024 Performed by Bob Watson MD at [facility] Cardiac Cath/EP Lab FISTULAGRAM (HISTORICAL) Left 09/15/2021 [...] Patient Unable To Answer (12/01/2024) Received from [facility] Overall Financial Resource Strain (CARDIA) Difficulty of Paying Living Expenses: Patient unable to answer Food Insecurity: Patient Unable To Answer (12/01/2024) Received from [facility] Hunger Vital Sign Worried About Running Out of Food in the Last Year: Patient unable to answer Ran Out of Food in the Last Year: Patient unable to answer Transportation Needs: No Transportation Needs (01/18/2025) Received from [facility] Transportation Source Has lack of transportation kept you from medical appointments or from getting medications?: No Has lack of transportation kept you from meetings, work, or from getting things needed for daily living?: No Physical Activity: Not on file Stress: No Stress Concern Present (01/18/2025) Received from [facility] [place] [facility] [employer]ational [employer] - Occupational Stress Questionnaire Feeling of Stress : Not at all Social Connections: Patient Unable To Answer (12/01/2024) Received from [facility] Medical Social Connection and Isolation Panel [NHANES] Frequency of Communication with Friends and Family: Patient unable to answer Frequency of Social Gatherings with Friends and Family: Patient unable to answer Attends Presybeterian Services: Patient unable to answer Active Member of Clubs or Organizations: Patient unable to answer Attends Club or Organization Meetings: Patient unable to answer Marital Status: Patient unable to answer Intimate Partner Violence: Patient Unable To Answer (11/28/2024) Received from [facility] Domestic Abuse Assessment Do you feel safe in your relationships at home?: Unable to assess Physical Abuse: Unable to assess [facility] Domestic Abuse - Type of Abuse: Not on file [facility] Domestic Abuse - Time Frame: Not on file [facility] Domestic Abuse - Signs and Symptoms: Not on file Verbal Abuse: Unable to assess [facility] Domestic Abuse - Reported To: Not on file Housing Stability: Patient Unable To Answer (12/01/2024) Received from [facility] Medical Housing Stability Vital Sign Unable to Pay for Housing in the Last Year: Patient unable to answer Number of Times Moved in the Last Year: 0 Homeless in the Last Year: Patient unable to answer Allergies Allergen Reactions Lisinopril Swelling and Angioedema Prior to Admission medications Medication Sig Start Date End Date Taking? Authorizing Provider epoetin rowan-epbx (Retacrit) 30413 UNIT/ML injection Inject 0.79 mL (7,900 Units) [...] Normal [] Scar/Lesion/Mass Inspection of teeth/lips/gums Dentition: [][place] Teeth []Dentures Lips/Gums: [x]Intact []Lesion Present Mucosa: [x][place] []Moist []Dry Neck: External Appearance Overall Appearance: [...] within last 24 hours- BMP: Recent Labs 01/19/252 01/20/25 0514 NA 135* 135* K 4.4 [...] -- ABGs: No results for input(s): PHART, TYJ1DUD, PO2ART, TPX3RUE, SO2ART, N0HDVRHN in the last 72 hours. Lactic Acid: [...] Plan: Principal Problem: Complication of tracheostomy (CMS/HCC) ([facility]) Active Problems: Severe malnutrition (CMS/HCC) ([facility]) Assessment: Passage of Bright red blood per rectum Acute on Chronic normocytic anemia S/p GDA embolization to D1 ESRD on dialysis TTS; LUE AVF A-=Fib with severe aortic stenosis s/p st luis mechanical valve on coumadin Dislodged tracheostomy tube- [...] normal BMI 18.5-24.9 Disposition: Remain on the [facility] Critical Care Time: Total critical care time [...] PM EDT I have personally performed a ixtw-qc-jrwj diagnostic evaluation on this patient on date of service 01/20/25. History, labs, imaging studies, and electronic medical record have been reviewed by me. This note documented by the []packing house laborer []ARMIN reflects my history, exam, and medical [...] from the original note were not included. [facility] - Infectious Diseases Advanced Practice Provider Consult Note Reason for Consult: Sacral ulcer osteomyelitis on IV abx at [facility]- known patient History of Present Illness: 59 yo male with PMHx significant for ESRD on HD, HTN, and PAD who was admitted at [facility] 10/03-11/28/24 after presenting with chest pain, cough, [...] Pip-Tazo and Anidulafungin. He was transferred to [facility] on 11/28/24. There he was followed by our ID group and had had recurrent MSSA LRTI that was treated. Additionally, his sacral wound was debrided to bone on 01/02/25. Sacral wound Cx + E faecalis and Clostridium clostridioforme. He is to be on a course of Amp-Sulbactam x6 weeks through 02/13/25. He was discharged to SNF on 01/18. Patient presented to [facility] on 01/19 after self-dislodging tracheostomy. He was transferred to [facility] ICU for further airway management and to [...] History: Diagnosis Date Acute renal failure (ARF) ([facility]) 10/19/2019 Anemia 12/30/2021 Calcification of abdominal aorta ([facility]) 10/08/202309/[address] abd Diverticulosis 10/08/2023 ESRD on hemodialysis ([facility]) ([facility]) 10/26/2019 Hemodialysis patient ([facility]) ([facility]) HTN (hypertension) 12/01/2022 Hypertension IgA nephropathy 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 10/26/2019 Missed vaccination due to patient refusal 10/08/2023 Has a number of non-scientific based beliefs which interfere with his understanding and acceptance of the medical benefit of vaccination. Nonrheumatic aortic valve stenosis 10/08/2023 Paroxysmal A-fib ([facility]) ([facility]) 08/18/2023 Tobacco abuse 10/08/2023 Past Surgical History: Past Surgical History: Procedure Laterality Date APPENDECTOMY CARDIAC CATHETERIZATION N/A 10/09/2024 Performed by Bob Watson MD at [facility] Cardiac Cath/EP Lab CARDIAC CATHETERIZATION Bilateral 11/01/2024 Performed by Bob Watson MD at [facility] Cardiac Cath/EP Lab CARDIAC CATHETERIZATION N/A 11/01/2024 Performed by Bob Watson MD at [facility] Cardiac Cath/EP Lab FISTULAGRAM (HISTORICAL) Left 09/15/2021 LEFT UPPER ARM HX AV FISTULA CREATION IR EMBOLIZATION 10/14/2024 IR EMBOLIZATION 10/14/2024 [facility] SPECIAL PROCEDURES IR FISTULAGRAM 08/07/2022 IR FISTULAGRAM 08/07/2022 [facility] IR IMAGING TONSILLECTOMY (HISTORICAL) Current Medications: Current Facility-Administered Medications Medication Dose Route Frequency Provider Last Rate Last Admin acetaminophen (Tylenol) tablet 1,000 mg 1,000 mg Oral q8h PRN Steve Lassiter MD 1,000 mg at 01/19/25 1540 ampicillin-sulbactam (Unasyn) 3,000 mg in sodium chloride 0.9 % 100 mL IVPB (Add[place]) 3,000 mg IntraVENous q12h Steve Lassiter MD [...] Patient Unable To Answer (12/01/2024) Received from [facility] Overall Financial Resource Strain (CARDIA) Difficulty of Paying Living Expenses: Patient unable to answer Food Insecurity: Patient Unable To Answer (12/01/2024) Received from [facility] Hunger Vital Sign Worried About Running Out of Food in the Last Year: Patient unable to answer Ran Out of Food in the Last Year: Patient unable to answer Transportation Needs: No Transportation Needs (01/18/2025) Received from [facility] Transportation Source Has lack of transportation kept you from medical appointments or from getting medications?: No Has lack of transportation kept you from meetings, work, or from getting things needed for daily living?: No Physical Activity: Not on file Stress: No Stress Concern Present (01/18/2025) Received from [facility] Occupational [facility] - Occupational Stress Questionnaire Feeling of Stress : Not at all Social Connections: Patient Unable To Answer (12/01/2024) Received from [facility] Medical Social Connection and Isolation Panel [NHANES] Frequency of Communication with Friends and Family: Patient unable to answer Frequency of Social Gatherings with Friends and Family: Patient unable to answer Attends [employer] Services: Patient unable to answer Active Member of Clubs or Organizations: Patient unable to answer Attends Club or Organization Meetings: Patient unable to answer Marital Status: Patient unable to answer Intimate Partner Violence: Patient Unable To Answer (11/28/2024) Received from [facility] Medical Domestic Abuse Assessment Do you feel safe in your relationships at home?: Unable to assess Physical Abuse: Unable to assess [facility] Domestic Abuse - Type of Abuse: Not on file [facility] Domestic Abuse - Time Frame: Not on file [facility] Domestic Abuse - Signs and Symptoms: Not on file Verbal Abuse: Unable to assess [facility] Domestic Abuse - Reported To: Not on file Housing Stability: Patient Unable To Answer (12/01/2024) Received from [facility] Medical Housing Stability Vital Sign Unable to [...] normal. Behavior: Behavior normal. Labs: Recent Labs 01/19/2534101/20/25 0514 NA 135* 135* K 4.4 4.8 CL 95* 98 CO2 25 22 BUN 80* 91* CREATININE 3.50* 4.31* GLUCOSE 85 68* CALCIUM 10.6* 9.2 Recent Labs 01/19/2534101/19/25 0652 01/20/25 0514 01/20/25 0801 WBC 11.6* 10.9* 10.5 -- HGB 9.1* 9.4* 6.6* 8.2* HCT 29.1* 30.2* 21.3* 25.8* PLT 404 416 279 -- LYMPHOPCT 15.3 13.7* 11.6* -- MONOPCT 12.6 11.1 10.1 -- BASOPCT 1.1 1.3 1.1 -- NEUTROABS 7.6* 7.5 7.5 -- Micro: Previous ([facility]) 01/02- sacral wound cx- E faecalis (Amp-S), skin ila, Clostridium clostrioforme 01/01- blood cx- 2/2 NG 12/30- blood cx- 2/2 NGTD 12/30- sputum cx- MSSA, resp ila 12/25- blood cx- 2/2 negative 12/14- sputum cx- MSSA, resp ila 12/14- MRSA pcr- MSSA 12/11- sputum cx- MSSA, resp ila Previous ([facility]) 11/28- L pleural fluid- negative 11/16- abd [...] stamp for accounting for open encounter. Mikala MORAN PA-C [facility] [place]ious Disease Cosigned by Gurdeep Cruz MD [...] gastrostomy tube placement, who presented to the [place] emergency room from [facility] on 01/19/2025 where he is admitted for IV antibiotics for multiple infected wounds including dry gangrene to the left foot and sacral ulcers. Patient accidentally pulled his tracheostomy and was therefore transferred to the emergency room. Patient transferred to [facility] for higher level of care. GI consult [...] throughout entire last hospitalization. On presentation to [place] 01/19/2025 hemoglobin was 9.1. This morning dropped to 6.6. No transfusion but repeat hemoglobin 3 hours later at 8.2. Currently getting dialysis. Reports he had a BM 5 minutes ago and he does not know what stools have looked like. He denies abdominal pain. No nausea, vomiting. Per patient girlfriend SNF has been flipping [id number] between Coumadin and heparin secondary to patient INR. Assume last dose of Coumadin to be 01/18/2025. History of appendectomy and PEG placement. Allergies: Lisinopril Current Medications: Current Facility-Administered Medications: acetaminophen (Tylenol) tablet 1,000 mg, 1,000 mg, Oral, q8h PRN, Steve Lassiter MD, 1,000 mg at 01/19/25 1540 ampicillin-sulbactam (Unasyn) 3,000 mg in sodium chloride 0.9 % 100 mL IVPB (Add-[place]), 3,000 mg, IntraVENous, q12h, Steve Lassiter MD, [...] Diagnosis Date Noted Anemia 12/30/2021 Paroxysmal A-fib ([facility]) ([facility]) 08/18/2023 HTN (hypertension) 12/01/2022 ESRD on hemodialysis ([facility]) ([facility]) 10/26/2019 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 10/26/2019 Diverticulosis 10/08/2023 Nonrheumatic aortic valve stenosis 10/08/2023 Calcification of abdominal aorta ([facility]) 10/08/2023 Missed vaccination due to patient refusal 10/08/2023 Tobacco abuse 10/08/2023 Alcohol use disorder in remission 10/08/2023 Atrial flutter, unspecified type ([facility]) 10/03/2024 RSV (acute bronchiolitis due to respiratory syncytial virus) 10/03/2024 Aortic stenosis 10/03/2024 Upper GI bleed 10/03/2024 S/P AVR 10/03/2024 Acute hypoxic respiratory failure ([facility]) 10/03/2024 Acute encephalopathy 10/03/2024 Pneumoperitoneum 10/03/2024 Gastric ulceration 2024 Severe malnutrition ([facility]) ([facility]) 01/19/2025 Pleural effusion 11/28/2024 Peritonitis due to fungus ([facility]) 11/30/2024 History of abdominal surgery 11/30/2024 Leg DVT (deep venous thromboembolism), acute, left ([facility]) 11/30/2024 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, 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 of skin ([facility]) 11/30/2024 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[facility]) 11/30/2024 Leukocytosis 12/30/2024 Decubitus ulcer of sacral region, unstageable ([facility]) 12/30/2024 Pneumonia of both lungs due to methicillin susceptible Staphylococcus aureus (MSSA) ([facility]) 01/01/2025 Sacral osteomyelitis ([facility]) ([facility]) 01/03/2025 Acute respiratory failure with hypoxia ([facility]) [J96.01] 01/08/2025 Tracheostomy care ([facility]) [Z43.0] 01/08/2025 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[facility]) 01/08/2025 longterm (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 01/12/2025 Resolved Ambulatory Problems Diagnosis Date Noted Acute renal failure (ARF) ([facility]) 10/19/2019 New onset a-fib ([facility]) ([facility]) 08/16/2023 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[facility]) 10/03/2024 Past Medical History: Diagnosis Date Hemodialysis patient ([facility]) ([facility]) Hypertension IgA nephropathy Past Surgical History: Social [...] Patient Unable To Answer (12/01/2024) Received from [facility] Overall Financial Resource Strain (CARDIA) Difficulty of Paying Living Expenses: Patient unable to answer Food Insecurity: Patient Unable To Answer (12/01/2024) Received from [facility] Hunger Vital Sign Worried About Running Out of Food in the Last Year: Patient unable to answer Ran Out of Food in the Last Year: Patient unable to answer Transportation Needs: No Transportation Needs (01/18/2025) Received from [facility] Transportation Source Has lack of transportation kept you from medical appointments or from getting medications?: No Has lack of transportation kept you from meetings, work, or from getting things needed for daily living?: No Physical Activity: Not on file Stress: No Stress Concern Present (01/18/2025) Received from [facility] Health - Occupational Stress Questionnaire Feeling of Stress : Not at all Social Connections: Patient Unable To Answer (12/01/2024) Received from [facility] Medical Social Connection and Isolation Panel [NHANES] Frequency of Communication with Friends and Family: Patient unable to answer Frequency of Social Gatherings with Friends and Family: Patient unable to answer Attends [employer] Services: Patient unable to answer Active Member of Clubs or Organizations: Patient unable to answer Attends Club or Organization Meetings: Patient unable to answer Marital Status: Patient unable to answer Intimate Partner Violence: Patient Unable To Answer (11/28/2024) Received from [facility] Medical Domestic Abuse Assessment Do you feel safe in your relationships at home?: Unable to assess Physical Abuse: Unable to assess [facility] Domestic Abuse - Type of Abuse: Not on file [facility] Domestic Abuse - Time Frame: Not on file [facility] Domestic Abuse - Signs and Symptoms: Not on file Verbal Abuse: Unable to assess [facility] Domestic Abuse - Reported To: Not on file Housing Stability: Patient Unable To Answer (12/01/2024) Received from [facility] Vital Sign Unable to Pay for Housing [...] 10/12/24, Coumadin, last dose suspected 01/18/25 at [facility] Acute Right occipital ICH- 10/22/24 ESRD on [...] 59 y.o. male with who presented to [facility] as transfer for trach dislodgment. Palliative Care [...] This result has been reviewed by Casandra Everett RD, LD on 01/20/25 at 7:18 AM. 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, currently HD-dependent via a left upper extremity AVF, on a Wednesday//Wednesday ([facility]) dialysis schedule, with the last HD session [...] History: Diagnosis Date Acute renal failure (ARF) ([facility]) 10/19/2019 Anemia 12/30/2021 Calcification of abdominal aorta ([facility]) 10/08/202309/[address] abd Diverticulosis 10/08/2023 ESRD on hemodialysis ([facility]) ([facility]) 10/26/2019 Hemodialysis patient ([facility]) ([facility]) HTN (hypertension) 12/01/2022 Hypertension IgA nephropathy 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 10/26/2019 Missed vaccination due to patient refusal 10/08/2023 Has a number of non-scientific based beliefs which interfere with his understanding and acceptance of the medical benefit of vaccination. Nonrheumatic aortic valve stenosis 10/08/2023 Paroxysmal A-fib ([facility]) ([facility]) 08/18/2023 Tobacco abuse 10/08/2023 Social History Socioeconomic [...] Patient Unable To Answer (12/01/2024) Received from [facility] Overall Financial Resource Strain (CARDIA) Difficulty of Paying Living Expenses: Patient unable to answer Food Insecurity: Patient Unable To Answer (12/01/2024) Received from [facility] Hunger Vital Sign Worried About Running Out of Food in the Last Year: Patient unable to answer Ran Out of Food in the Last Year: Patient unable to answer Transportation Needs: No Transportation Needs (01/18/2025) Received from [facility] Transportation Source Has lack of transportation kept you from medical appointments or from getting medications?: No Has lack of transportation kept you from meetings, work, or from getting things needed for daily living?: No Physical Activity: Not on file Stress: No Stress Concern Present (01/18/2025) Received from [facility] [place] [facility] - Occupational Stress Questionnaire Feeling of Stress : Not at all Social Connections: Patient Unable To Answer (12/01/2024) Received from [facility] Social Connection and Isolation Panel [NHANES] Frequency of Communication with Friends and Family: Patient unable to answer Frequency of Social Gatherings with Friends and Family: Patient unable to answer Attends [employer] Services: Patient unable to answer Active Member of Clubs or Organizations: Patient unable to answer Attends Club or Organization Meetings: Patient unable to answer Marital Status: Patient unable to answer Intimate Partner Violence: Patient Unable To Answer (11/28/2024) Received from [facility] Medical Domestic Abuse Assessment Do you feel safe in your relationships at home?: Unable to assess Physical Abuse: Unable to assess [facility] Domestic Abuse - Type of Abuse: Not on file [facility] Domestic Abuse - Time Frame: Not on file [facility] Domestic Abuse - Signs and Symptoms: Not on file Verbal Abuse: Unable to assess [facility] Domestic Abuse - Reported To: Not on file Housing Stability: Patient Unable To Answer (12/01/2024) Received from [facility] Medical Housing Stability Vital Sign Unable to [...] sodium chloride 0.9 % 100 mL IVPB (Add[place]), 3,000 mg, IntraVENous, Daily, Steve Lassiter MD [...] mg, 0.4 mg, IntraVENous, q5 min PRN, Steev Lassiter MD ondansetron ODT (Zofran-ODT) disintegrating tablet [...] from last 7 days Lab Units 01/19/2534101/16/2531501/15/25 025 SODIUM mmol/L 135* 138 135* POTASSIUM mmol/L 4.4 4.0 5.6* CHLORIDE mmol/L 95* 95* 93* CO2 mmol/L 25 28 27 BUN mg/dL 80* 64* 117* CREATININE mg/dL 3.50* 2.46* 3.97* GLUCOSE mg/dL 85 85 95 CALCIUM mg/dL 10.6* 9.6 10.2 Results from last 7 days Lab Units 01/19/2534101/16/2531501/15/25 025 SODIUM mmol/L 135* < > 135* POTASSIUM [...] from last 7 days Lab Units 01/15/25 025 MAGNESIUM mg/dL 2.9* Results from last 7 [...] airway management needs. Maintain NPO status per PRACTICE DIRECTOR recommendations until airway stabilization; consider modification of HD orders if NPO persists beyond 24-48 hours impacting volume/nutrition Please message me through EPIC chat with any questions or concerns. Wellington Nicole MD 01/19/2025 4:13 PM [facility] [address] [place] [address], [address] [place] [address] Office: [phone] Associated Order(s): IP CONSULT TO DIETITIAN; IP [...] EN only as sole source of nutrition. PRACTICE DIRECTOR was following while pt was at [facility]. PRACTICE DIRECTOR consulted inpatient and recommending strict NPO. [...] pt was receiving and tolerating while at [facility]. Will monitor tolerance of nutrition as initiated and increased to goal. Will continue to monitor PRACTICE DIRECTOR in the event that oral diet [...] Accumulation: No significant fluid accumulation (per flowsheets) Crocheter Hand Strength: Not Performed Nutrition Assessment: pt with [...] Prostat, pt was stabilized and transferred to [facility] for ongoing care, vent liberation and rehab, while at [facility] RD was following and pt was receiving Nepro @ 50mls/hr, pt was discharged from [facility] to SNF on 01/18/25, pt now presented to [facility] ED on 01/19/25 [facility] due to trach dislod[facility], pt stated he was trying to disconnect his vent to transfer to another room but accidentally pulled out his tracheostomy, event happened approximately 45 minutes before ED arrival, ED attempted to place tracheostomy tube back but was unsuccessful thus decision was made to transfer pt to [facility] ICU for further airway management and to [...] states he has been like this since [facility], pt was transferred to ICU for further management, Nephrology and wound care consults pending, PRACTICE DIRECTOR was also consulted and recommending strict NPO. In terms of nutrition pt remains NPO at this time, RD spoke with pt in room, no family/visitors present, pt states that he was only receiving nutrition via PEG OFFICE ADMINISTRATION INSTRUCTOR, states his goals are to 'eat ice [...] Pt presented from SNF, prolonged admit at [facility] 10/03-11/28/24, discharged to [facility] and recently transferred to [facility] Orientation Level: Oriented to situation, Oriented to [...] bedscale, 10/31: 200#, 11/28: 161#, 01/18: 142#) [place] Body Weight (lbs) (Calculated): 166 lbs [place] Body Weight (Kg) (Calculated): 75 kg % [place] Body Weight (Calculated): 78.2 % BMI (kg/m2) (Calculated): 18.6 Weight Adjustment For: No Adjustment BMI Categories: Normal Weight (BMI 18.5-24.9) Wt Readings from Last 10 Encounters: 01/19/25 58.9 kg (129 lb 13.6 oz) 03/04/25 58.9 kg (129 lb 13.6 oz) 08/28/24 [...] Nutrition Dana El RD Contact: available via [employer] or *[id number] Associated Order(s): INPATIENT CONSULT TO WOUND CARE PROVIDERS Images from the original note were not included. [facility] Wound Care CONSULT Note Jun Snyder AGE: [...] diverticulosis, IgA nephropathy, severe that presented to [facility] ED from a facility due to trach dislodgement. Wound Care consulted for Pressure Injury sacrum and Ischemic ulcers to left toes PAST MEDICAL HISTORY Past Medical History: Diagnosis Date Acute renal failure (ARF) ([facility]) 10/19/2019 Anemia 12/30/2021 Calcification of abdominal aorta ([facility]) 10/08/202309/[address] abd Diverticulosis 10/08/2023 ESRD on hemodialysis ([facility]) ([facility]) 10/26/2019 Hemodialysis patient ([facility]) ([facility]) HTN (hypertension) 12/01/2022 Hypertension IgA nephropathy 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 10/26/2019 Missed vaccination due to patient refusal 10/08/2023 Has a number of non-scientific based beliefs which interfere with his understanding and acceptance of the medical benefit of vaccination. Nonrheumatic aortic valve stenosis 10/08/2023 Paroxysmal A-fib ([facility]) ([facility]) 08/18/2023 Tobacco abuse 10/08/2023 PAST SURGICAL HISTORY Past Surgical History: Procedure Laterality Date APPENDECTOMY CARDIAC CATHETERIZATION N/A 10/09/2024 Performed by Bob Watson MD at [facility] Cardiac Cath/EP Lab CARDIAC CATHETERIZATION Bilateral 11/01/2024 Performed by Bob Watson MD at [facility] Cardiac Cath/EP Lab CARDIAC CATHETERIZATION N/A 11/01/2024 Performed by Bob Watson MD at [facility] Cardiac Cath/EP Lab FISTULAGRAM (HISTORICAL) Left 09/15/2021 LEFT UPPER ARM HX AV FISTULA CREATION IR EMBOLIZATION 10/14/2024 IR EMBOLIZATION 10/14/2024 [facility] SPECIAL PROCEDURES IR FISTULAGRAM 08/07/2022 IR FISTULAGRAM 08/07/2022 [facility] IR IMAGING TONSILLECTOMY (HISTORICAL) FAMILY HISTORY Family [...] Medication Sig Dispense Refill epoetin rowan-epbx (Retacrit) 39885 UNIT/ML injection Inject 0.79 mL (7,900 Units) [...] to follow Recommend to follow up at [facility] Outpatient wound care center after hospital discharge. [...] 4:05 PM EDT documented in this encounter [facility] 01-19-2025 History and physical note Images from [...] diverticulosis, IgA nephropathy, severe that presented to [facility] ED from a facility due to trach dislodgement. Per patient, was trying to disconnect his vent to transfer to another room but accidentally pulled out his tracheostomy. This event happened approximately 45 minutes before ED arrival. ED attempted to place tracheostomy tube back but were unsuccessful. Decision was made to transfer patient to [facility] ICU for further airway management and determine [...] History: Diagnosis Date Acute renal failure (ARF) ([facility]) 10/19/2019 Anemia 12/30/2021 Calcification of abdominal aorta ([facility]) 10/08/202309/[address] abd Diverticulosis 10/08/2023 ESRD on hemodialysis ([facility]) ([facility]) 10/26/2019 Hemodialysis patient ([facility]) ([facility]) HTN (hypertension) 12/01/2022 Hypertension IgA nephropathy 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 10/26/2019 Missed vaccination due to patient refusal 10/08/2023 Has a number of non-scientific based beliefs which interfere with his understanding and acceptance of the medical benefit of vaccination. Nonrheumatic aortic valve stenosis 10/08/2023 Paroxysmal A-fib ([facility]) ([facility]) 08/18/2023 Tobacco abuse 10/08/2023 Past Surgical History: Procedure Laterality Date APPENDECTOMY CARDIAC CATHETERIZATION N/A 10/09/2024 Performed by Bob Watson MD at [facility] Cardiac Cath/EP Lab CARDIAC CATHETERIZATION Bilateral 11/01/2024 Performed by Bob Watson MD at [facility] Cardiac Cath/EP Lab CARDIAC CATHETERIZATION N/A 11/01/2024 Performed by Bob Watson MD at [facility] Cardiac Cath/EP Lab FISTULAGRAM (HISTORICAL) Left 09/15/2021 LEFT UPPER ARM HX AV FISTULA CREATION IR EMBOLIZATION 10/14/2024 IR EMBOLIZATION 10/14/2024 [facility] [facility] SPECIAL PROCEDURES IR FISTULAGRAM 08/07/2022 IR FISTULAGRAM 08/07/2022 [facility] IR IMAGING TONSILLECTOMY (HISTORICAL) Family History Problem [...] Patient Unable To Answer (12/01/2024) Received from [facility] Overall Financial Resource Strain (CARDIA) Difficulty of Paying Living Expenses: Patient unable to answer Food Insecurity: Patient Unable To Answer (12/01/2024) Received from [facility] Hunger Vital Sign Worried About Running Out of Food in the Last Year: Patient unable to answer Ran Out of Food in the Last Year: Patient unable to answer Transportation Needs: No Transportation Needs (01/18/2025) Received from [facility] SDFL Transportation Source Has lack of transportation kept you from medical appointments or from getting medications?: No Has lack of transportation kept you from meetings, work, or from getting things needed for daily living?: No Physical Activity: Not on file Stress: No Stress Concern Present (01/18/2025) Received from [facility] - Occupational Stress Questionnaire Feeling of Stress : Not at all Social Connections: Patient Unable To Answer (12/01/2024) Received from [facility] Medical Social Connection and Isolation Panel [NHANES] Frequency of Communication with Friends and Family: Patient unable to answer Frequency of Social Gatherings with Friends and Family: Patient unable to answer Attends [employer] Services: Patient unable to answer Active Member of Clubs or Organizations: Patient unable to answer Attends Club or Organization Meetings: Patient unable to answer Marital Status: Patient unable to answer Intimate Partner Violence: Patient Unable To Answer (11/28/2024) Received from [facility] Medical Domestic Abuse Assessment Do you feel safe in your relationships at home?: Unable to assess Physical Abuse: Unable to assess [facility] Domestic Abuse - Type of Abuse: Not on file [facility] Domestic Abuse - Time Frame: Not on file [facility] Domestic Abuse - Signs and Symptoms: Not on file Verbal Abuse: Unable to assess [facility] Domestic Abuse - Reported To: Not on file Housing Stability: Patient Unable To Answer (12/01/2024) Received from [facility] Housing Stability Vital Sign Unable to Pay for Housing in the Last Year: Patient unable to answer Number of Times Moved in the Last Year: 0 Homeless in the Last Year: Patient unable to answer Allergies Allergen Reactions Lisinopril Swelling and Angioedema Prior to Admission medications Medication Sig Start Date End Date Taking? Authorizing Provider epoetin rowan-epbx (Retacrit) 98678 UNIT/ML injection Inject 0.79 mL (7,900 Units) [...] Normal [] Scar/Lesion/Mass Inspection of teeth/lips/gums Dentition: [][place] Teeth []Dentures Lips/Gums: []Intact []Lesion Present Mucosa: [][place] []Moist []Dry Neck: External Appearance Tracheostomy hole [...] 72 hours. Glucose: Recent Labs 01/19/25 0342 GLUCOSE 85 Procal: No results for input(s): PROCAL in the last 72 hours. CBC: Recent Labs 01/19/25 0342 WBC 11.6* HGB 9.1* HCT 29.1* PLT 404 MCV 87.4 RDW 18.5* ABGs: No results for input(s): PHART, LVU8WXD, PO2ART, XQO9ZMW, SO2ART, V4WPZDST in the last 72 hours. Lactic Acid: [...] Principal Problem: Complication of tracheostomy (CMS/HCC) (HCC) Assessment: Trach dislodgement Chest pain ESRD Chronic [...] PM EDT I have personally performed a [id number]-fw-[id number] diagnostic evaluation on this patient on date [...] to have bile peritonitis 11/28/24: transferred to [facility]. He continued on HD at [facility]. Reportedly had ongoing issues with delirium according to his partner, Toma who was at bedside and provided history. Developed severe sacral ulcer and sacral ostomyelitis at [facility]. He was progressing with PRACTICE DIRECTOR and using a PMV. Has not done any capping trials. Was transferred to a facility in [place]; there he inadvertently dislodged his tracheostomy. He initially presented to the [facility] emergency dept. He was transferred to [facility] in case of emergetn airway compromise. Assessment: Trach dislodgement, high risk of respiratory failure Chronic respiratory failure due to failure of airway protection ESRD Sacral osteomyelitis s/p AVR Full Code Plan: Admit to MICU Close monitorign for airway compromise Restart abx for osteomyelitis PRACTICE DIRECTOR eval; [facility] Critical Care Time: 33 minutes Total critical care time caring for this patient with life threatening, unstable organ failure, including direct patient contact, management of life support systems, review of data including imaging and labs, discussions with other team members and physicians, excluding procedures. Electronically signed by Bruce Nguyen MD documented in this encounter [facility] 01-19-2025 Emergency department Note EMERGENCY DEPARTMENT ENCOUNTER [...] who [facility] the emergency department [facility] for accidental dislodgment of his tracheostomy [...] nephropathy, hypertension, and currently being treated at [facility] facility with IV antibiotics for multiple infected [...] History: Diagnosis Date Acute renal failure (ARF) ([facility]) 10/19/2019 Anemia 12/30/2021 Calcification of abdominal aorta ([facility]) 10/08/202309/[address] abd Diverticulosis 10/08/2023 ESRD on hemodialysis ([facility]) ([facility]) 10/26/2019 Hemodialysis patient ([facility]) ([facility]) HTN (hypertension) 12/01/2022 Hypertension IgA nephropathy 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 10/26/2019 Missed vaccination due to patient refusal 10/08/2023 Has a number of non-scientific based beliefs which interfere with his understanding and acceptance of the medical benefit of vaccination. Nonrheumatic aortic valve stenosis 10/08/2023 Paroxysmal A-fib ([facility]) ([facility]) 08/18/2023 Tobacco abuse 10/08/2023 SURGICAL HISTORY Past Surgical History: Procedure Laterality Date APPENDECTOMY CARDIAC CATHETERIZATION N/A 10/09/2024 Performed by Bob Watson MD at [facility] Cardiac Cath/EP Lab CARDIAC CATHETERIZATION Bilateral 11/01/2024 Performed by Bob Watson MD at [facility] Cardiac Cath/EP Lab CARDIAC CATHETERIZATION N/A 11/01/2024 Performed by Bob Watson MD at [facility] Cardiac Cath/EP Lab FISTULAGRAM (HISTORICAL) Left 09/15/2021 LEFT UPPER ARM HX AV FISTULA CREATION IR EMBOLIZATION 10/14/2024 IR EMBOLIZATION 10/14/2024 [facility] SPECIAL PROCEDURES IR FISTULAGRAM 08/07/2022 IR FISTULAGRAM 08/07/2022 [facility] IR IMAGING TONSILLECTOMY (HISTORICAL) CURRENT MEDICATIONS Previous Medications EPOETIN ROWAN-EPBX (RETACRIT) 60985 UNIT/ML INJECTION Inject 0.79 mL (7,900 Units) [...] 1 PPD in 2020 after quitting drinking. 1/31/25 Vaping Use Vaping status: Never Used Substance and Sexual Activity Alcohol use: Not Currently Drug use: Never Social Drivers of Health Financial Resource Strain: Patient Unable To Answer (12/01/2024) Received from [facility] Medical Overall Financial Resource Strain (CARDIA) Difficulty of Paying Living Expenses: Patient unable to answer Food Insecurity: Patient Unable To Answer (12/01/2024) Received from [facility] Medical Hunger Vital Sign Worried About Running Out of Food in the Last Year: Patient unable to answer Ran Out of Food in the Last Year: Patient unable to answer Transportation Needs: No Transportation Needs (01/18/2025) Received from [facility] Medical SDOH Transportation Source Has lack of transportation kept you from medical appointments or from getting medications?: No Has lack of transportation kept you from meetings, work, or from getting things needed for daily living?: No Stress: No Stress Concern Present (01/18/2025) Received from [facility] - Occupational Stress Questionnaire Feeling of Stress : Not at all Social Connections: Patient Unable To Answer (12/01/2024) Received from [facility] Medical Social Connection and Isolation Panel [NHANES] Frequency of Communication with Friends and Family: Patient unable to answer Frequency of Social Gatherings with Friends and Family: Patient unable to answer Attends [employer] Services: Patient unable to answer Active Member of Clubs or Organizations: Patient unable to answer Attends Club or Organization Meetings: Patient unable to answer Marital Status: Patient unable to answer Intimate Partner Violence: Patient Unable To Answer (11/28/2024) Received from [facility] Medical Domestic Abuse Assessment Do you feel safe in your relationships at home?: Unable to assess Physical Abuse: Unable to assess Verbal Abuse: Unable to assess Housing Stability: Patient Unable To Answer (12/01/2024) Received from [facility] Medical Housing Stability Vital Sign Unable to [...] nursing note reviewed. Exam conducted with a barrel cutter present. Constitutional: General: He is not in [...] accidental dislodgment [facility] tube at [facility] facility as described in the HPI. Reportedly [...] necessary. Dr. Ponce recommended ICU admission to [facility] for observation with possible replacement tracheostomy if needed. ICU at [facility] was consulted and I spoke with Dr. Nguyen regarding admission to their service. He agrees with this indication and patient admitted to [facility] ICU. Diagnoses as of 01/19/25 0300 Complication of tracheostomy ([facility]) ([facility]) Medications - No data to display REVAL: [...] No FINAL IMPRESSION 1. Complication of tracheostomy ([facility]) ([facility]) DISPOSITION Admit 01/19/2025 03:00:18 AM PATIENT REFERRED [...] 01/19/25 0301 Pt arrived Via EMS from [facility]. Pt removed his trach which he is typically on 5L. 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 He is NPO and receiving IV antibiotics for the results of his blood cultures. Pt was recently transferred to [place] from [facility]. Pt arrived with a pressure of 88/52 and 96% on room air. RT and MD at bedside upon arrival. documented in this encounter [facility] 01-18-2025 History of Presen t illness Narrative [facility] documented in this encounter [facility] 01-17-2025 History of Presen t illness Narrative Seen at [facility] documented in this encounter [facility] 01-17-2025 History of Presen t illness Narrative [facility] documented in this encounter [facility] 01-16-2025 History of Presen t illness Narrative [facility] documented in this encounter [facility] 01-15-2025 History of Presen t illness Narrative Seen at [facility] documented in this encounter [facility] 01-15-2025 History of Presen t illness Narrative [facility] documented in this encounter [facility] 01-14-2025 History of Presen t illness [facility]ative [facility] documented in this encounter [facility] 01-12-2025 History of Presen t illness [facility] documented in this encounter [facility] 01-12-2025 History of Presen t illness Narrative Seen at [facility] documented in this encounter [facility] 01-11-2025 History of Presen t illness [facility]ative [facility] documented in this encounter [facility] 01-11-2025 History of Presen t illness Narrative Seen at [facility] documented in this encounter [facility] 01-10-2025 History of Presen t illness [facility] documented in this encounter [facility] 01-09-2025 History of Presen t illness [facility] documented in this encounter [facility] 01-09-2025 History of Presen t illness Narrative Seen at [facility] documented in this encounter [facility] 01-08-2025 History of Presen t illness [facility] documented in this encounter [facility] 01-08-2025 History of Presen t illness Narrative Seen at [facility] documented in this encounter [facility] 01-05-2025 History of Presen t illness Narrative Patient seen by me at [facility]. Documentation including history, exam and plan documented in [facility] EMR. This encounter is for billing only. documented in this encounter [facility] 01-05-2025 History of Presen t illness Narrative [facility] 01/05 documented in this encounter [facility] 01-04-2025 History of Presen t illness Narrative Patient seen by me at [facility]. Documentation including history, exam and plan documented in [facility]. This encounter is for billing only. documented in this encounter [facility] 01-04-2025 History of Presen t illness Narrative [facility] 01/04 documented in this encounter [facility] 01-03-2025 History of Presen t illness Narrative Patient seen by me at [facility]. Documentation including history, exam and plan documented in [facility]. This encounter is for billing only. documented in this encounter [facility] 01-03-2025 History of Presen t illness Narrative Pt seen at [facility]. Complete documentation under [facility]'s EMR. documented in this encounter [facility] 01-02-2025 History of Presen t illness Narrative Pt seen at [facility]. Complete documentation under [facility]'s EMR. documented in this encounter [facility] 01-02-2025 History of Presen t illness Narrative Patient seen by me at [facility]. Documentation including history, exam and plan documented in [facility]. This encounter is for billing only. documented in this encounter [facility] 01-01-2025 History of Presen t illness Narrative Pt seen at [facility]. Complete documentation under [facility]'s EMR. documented in this encounter [facility] 01-01-2025 History of Presen t illness Narrative Patient seen by me at [facility]. Documentation including history, exam and plan documented in [facility] EMR. This encounter is for billing only. documented in this encounter [facility] 01-01-2025 History of Presen t illness Narrative Subsequent visit today at [facility] documented in this encounter [facility] 12-30-2024 History of Presen t illness Narrative Pt seen at [facility]. Complete documentation under [facility] EMR. documented in this encounter [facility] 12-28-2024 History of Presen t illness Narrative Patient seen by me at [facility]. Complete documentation including history with assessment and plan were documented in [facility] EMR. This encounter is for billing only. documented in this encounter [facility] 12-27-2024 History of Presen t illness Narrative Patient seen by me at [facility]. Complete documentation including history with assessment and plan were documented in [facility] EMR. This encounter is for billing only. documented in this encounter [facility] 12-26-2024 History of Presen t illness Narrative Patient seen by me at [facility]. Complete documentation including history with assessment and plan were documented in [facility] EMR. This encounter is for billing only. documented in this encounter [facility] 12-22-2024 History of Presen t illness Narrative Patient seen by me at [facility] in [place]. Complete documentation including history with assessment and plan were documented in [facility] EMR. This encounter is for billing only. documented in this encounter [facility] 12-21-2024 History of Presen t illness Narrative Patient seen by me at [facility] in [place]. Complete documentation including history with assessment and plan were documented in [facility] EMR. This encounter is for billing only. documented in this encounter [facility] 12-20-2024 History of Presen t illness Narrative Patient seen by me at [facility] in [place]. Complete documentation including history with assessment and plan were documented in [facility] EMR. This encounter is for billing only. documented in this encounter [facility] 12-19-2024 History of Presen t illness Narrative Patient seen by me at [facility] in [place]. Complete documentation including history with assessment and plan were documented in [facility] EMR. This encounter is for billing only. documented in this encounter [facility] 12-18-2024 History of Presen t illness Narrative Patient seen by me at [facility] in [place]. Complete documentation including history with assessment and plan were documented in [facility] EMR. This encounter is for billing only. documented in this encounter [facility] 12-15-2024 History of Presen t illness [facility]ative [facility] documented in this encounter [facility] 12-14-2024 History of Presen t illness Narrative [facility] documented in this encounter [facility] 12-14-2024 Telephone encount er Note Patient is still at [facility]. I spoke to Karla, family independence case manager, and she stated that patient has a tentative discharge date on 12/25. He will be going to a facility after that. Karla is not sure which one. I will check back with her closer to that date. [facility] 12-14-2024 Miscellaneous Notes Formattin g of this note might be different from the original. Patient is still at [facility]. I spoke to Karla, family independence case manager, and she stated that patient has a tentative discharge date on 12/25. He will be going to a facility after that. Karla is not sure which one. I will check back with her closer to that date. Called and spoke with patients son to discuss scheduling hospital follow up appointment. Omar advised me that the patient will be in the hospital fci as a lot happened while he was [...] in ICU. Thanks. documented in this encounter [facility] 12-13-2024 History of Presen t illness Narrative [facility] documented in this encounter [facility] 12-13-2024 Telephone encount er Note Called and spoke with patients son to discuss scheduling hospital follow up appointment. 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 Patient does not wish to schedule at this time. Thanks [facility] 12-13-2024 Miscellaneous Notes Formattin g of this note might be different from the original. Called and spoke with patients son to discuss scheduling hospital follow up appointment. Omar advised me that the patient will be in the hospital fci as a lot happened while he was hospitalized. Patient does not wish to schedule at this time. Thanks Attempted to call patient to schedule hospital follow up. Patients phone is restricted. Unable to lvm. Sent ToutApphart message. Thanks Will hold to contact patient s/p discharge. Thanks Pt remains admitted at this time. GI staff to contact pt for scheduling OV s/p discharge. Patient needs close follow up for repeat EGD for duodenal ulcer, had IR embolization of GDA. Currently in ICU. Thanks. documented in this encounter [facility] 12-12-2024 History of Presen t illness Narrative [facility] documented in this encounter [facility] 12-11-2024 History of Presen t illness Narrative Seen at [facility] 12/11/24 documented in this encounter [facility] 12-11-2024 History of Presen t illness Narrative [facility] documented in this encounter [facility] 12-11-2024 Telephone encount er Note Attempted to call patient to schedule hospital follow up. Patients phone is restricted. Unable to lvm. Sent MyChart message. Thanks [facility] 12-11-2024 Miscellaneous Notes Formattin g of this [...] in ICU. Thanks. documented in this encounter [facility] 12-07-2024 History of Presen t illness Narrative [facility] 12/07/24 documented in this encounter [facility] 12-06-2024 History of Presen t illness Narrative [facility] 12/06/24 documented in this encounter [facility] 12-04-2024 History of Presen t illness Narrative Follow-up visit today at [facility] documented in this encounter [facility] 12-04-2024 History of Presen t illness Narrative [facility] 12/04/24 documented in this encounter [facility] 12-01-2024 History of Presen t illness [facility]arrative [facility] 12/01/24 documented in this encounter [facility] 12-01-2024 History of Presen t illness Narrative I did a level 4 consult on this patient [facility]. In reviewing Dr. Garcia's note she noted acute systolic right heart failure related to and accompanied by pulmonary hypertension. She noted the need for midodrine. Dr. Chow waited on atrial flutter and atrial tachycardia. He was put on amiodarone and attempt was YG cardioversion, unsuccessful. [facility] showed [facility] flutter. documented in this encounter [facility] 12-01-2024 History of Presen t illness Narrative [facility] documented in this encounter [facility] 11-30-2024 History of Presen t illness Narrative [facility] documented in this encounter [facility] 11-30-2024 History of Presen t illness Narrative [facility] 11/30/24 documented in this encounter [facility] 11-29-2024 History of Presen t illness Narrative [facility] 11/29/24 documented in this encounter [facility] 11-29-2024 History of Presen t illness Narrative [facility] documented in this encounter [facility] 11-28-2024 Telephone encount er Note Name of Caller: Herminia Contact Physician requesting Consult: Michelle Caruso APRN Patient Location (facility name, room, bed number): [facility] specialty [facility], 116 Patient Diagnosis/Reason for Consult:SOB Provider being paged: Dr Nathan Time page was sent: [phone] Department of provider being paged: [facility] Page Content: routine consult requested. Message sent via Secure Chat [facility] 11-28-2024 Miscellaneous Notes Formattin g of this note might be different from the original. Name of Caller: Herminia Contact Physician requesting Consult: Michelle Caruso APRN Patient Location (facility name, room, bed number): [facility], 116 Patient Diagnosis/Reason for Consult:SOB Provider being paged: Dr Nathan Time page was sent: [phone] Department of provider being paged: [facility] Page Content: routine consult requested. Message sent via Secure Chat documented in this encounter [facility] 10-17-2024 Telephone encount er Note Will hold to contact patient s/p discharge. Thanks [facility] 10-17-2024 Miscellaneous Notes Formattin g of this note might be different from the original. Will hold to contact patient s/p discharge. Thanks Pt remains admitted at this time. GI staff to contact pt for scheduling OV s/p discharge. Patient needs close follow up for repeat EGD for duodenal ulcer, had IR embolization of GDA. Currently in ICU. Thanks. documented in this encounter [facility] 10-17-2024 Miscellaneous Notes Formattin g of this note might be different from the original. Will hold to contact patient s/p discharge. Thanks Pt remains admitted at this time. GI staff to contact pt for scheduling OV s/p discharge. Patient needs close follow up for repeat EGD for duodenal ulcer, had IR embolization of GDA. Currently in ICU. Thanks. documented in this encounter [employer] 10-17-2024 Telephone encount er Note Pt remains admitted at this time. GI staff to contact pt for scheduling OV s/p discharge. [employer] 10-16-2024 Telephone encount er Note Patient needs close follow up for repeat EGD for duodenal ulcer, had IR embolization of GDA. Currently in ICU. Thanks. [employer] Work Phone: 10-16-2024 Miscellaneous Notes Formattin g of this note might be different from the original. Patient needs close follow up for repeat EGD for duodenal ulcer, had IR embolization of GDA. Currently in ICU. Thanks. documented in this encounter [employer] 10-12-2024 Note Formatting of this n ote is different from the original. Patient: Jair Snyder Procedure Summary Date: 10/12/24 Room / Location: [facility] Operating Room Anesthesia Start: 725 Anesthesia Stop: 1126 Procedures: AORTIC VALVE REPLACEMENT (Chest) TRICUSPID REPLACEMENT WITH RING (Chest) TRANSESOPHAGEAL ECHOCARDIOGRAM Diagnosis: Aortic stenosis Surgeons: Luciano A Montemayor, MD Responsible Provider: DENIA Cannon CRNA Anesthesia [...] once all PACU criteria has been met. [facility] 10-12-2024 Miscellaneous Notes Formattin g of this note is different from the original. Patient: Jair Snyder Procedure Summary Date: 10/12/24 Room / Location: [address] Operating Room Anesthesia Start: 07 Anesthesia Stop: 112 Procedures: AORTIC VALVE REPLACEMENT (Chest) TRICUSPID REPLACEMENT [...] has been met. documented in this encounter [facility] 10-12-2024 Anesthesiology Postoperative evaluation and management note Patient: Jair Snyder Procedure Summary Date: 10/12/24 Room / Location: [facility] Operating Room Anesthesia Start: 725 Anesthesia [...] opportunity for questions and acknowledgement of understanding. [employer] Phone: 10-12-2024 Surgical operatio n note Patient: Jair Snyder Procedure Summary Date: 10/12/24 Room / Location: [facility] Operating Room Anesthesia Start: 725 Anesthesia [...] during the procedure: no complications. Staffing Performed: FAILURE ANALYSIS TECHNICIAN Resident/FAILURE ANALYSIS TECHNICIAN: Rudolph German CRNA Associated Order(s): Airway Airway Date/Time: 10/12/2024 7:38 AM Urgency: scheduled Airway not difficult General Information and Staff Patient location during procedure: Procedural Anesthesiologist: Vincent Wilson MD Resident/FAILURE ANALYSIS TECHNICIAN: Rudolph German CRNA Performed: anesthesiologist Indications [...] procedure well with no complications. Staffing Performed: FAILURE ANALYSIS TECHNICIAN Resident/FAILURE ANALYSIS TECHNICIAN: Rudolph German CRNA Patient: Jair Snyder Procedure Information Date/Time: 10/12/24 0730 Procedures: AORTIC VALVE REPAIR, POSSIBLE REPLACEMENT (Chest) - 7:30 am, 5 hours TRICUSPID REPLACEMENT WITH RING (Chest) TRANSESOPHAGEAL ECHOCARDIOGRAM Location: [facility] Operating Room Surgeons: Luciano Montemayor MD Relevant Problems Cardio (+) Aortic stenosis (+) Atrial flutter, unspecified type (HCC) (+) Calcification of abdominal aorta (HCC) (+) HTN (hypertension) (+) Nonrheumatic aortic valve stenosis (+) Paroxysmal A-fib (CMS/HCC) (HCC) GI (+) Diverticulosis /Renal (+) ESRD on hemodialysis ([facility]) ([facility]) (+) 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 Past Medical History: Past Medical History: 10/19/2019: Acute renal failure (ARF) ([facility]) 12/30/2021: Anemia 10/08/2023: Calcification of abdominal aorta ([facility]) Comment: 09/[address] abd 10/08/2023: Diverticulosis 10/26/2019: ESRD on hemodialysis ([facility]) ([facility]) No date: Hemodialysis patient ([facility]) ([facility]) 12/01/2022: HTN (hypertension) No date: Hypertension No date: IgA nephropathy 10/26/2019: 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 10/08/2023: Missed vaccination due to patient refusal Comment: Has a number of non-scientific based beliefs which interfere with his understanding and acceptance of the medical benefit of vaccination. 10/08/2023: Nonrheumatic aortic valve stenosis 08/18/2023: Paroxysmal A-fib ([facility]) ([facility]) 10/08/2023: Tobacco abuse Past Surgical History: Past Surgical History: No date: APPENDECTOMY 10/09/2024: CARDIAC CATHETERIZATION; N/A Comment: Performed by Bob Watson MD at [facility] Cardiac Cath/EP Lab 09/15/2021: FISTULAGRAM (HISTORICAL); Left Comment: LEFT UPPER ARM No date: HX AV FISTULA CREATION 08/07/2022: IR FISTULAGRAM Comment: IR FISTULAGRAM 08/07/2022 [facility] IR IMAGING No date: TONSILLECTOMY (HISTORICAL) Social [...] Additional Equipment Requests documented in this encounter [facility] 10-12-2024 Procedure anesthe jaki Narrative Procedure Name [...] Reason: Per order 10/12/24 0737 by Rudolph German, FAILURE ANALYSIS TECHNICIAN 10/16/24 0930 by Wanda Hays RN ETT Placement Date: 10/12/24; Placement Time: 0738 (created via procedure documentation); Type: ETT - single; Single Lumen Tube Size: 8 mm; Cuffed: Yes; Location: Oral; Placement Verification: Capnometry; Airway Comments: Pt self-extubated, placed on 6lnc.; Removal Date: 10/12/24; Removal Time: 1319 10/12/24 0738 by Rudolph German CRNA 10/12/24 1319 by Darryn Naik RCP Pulmonary Catheter Triple Placement Date: 10/12/24; Placement Time: 0738 (created via procedure documentation); Size: 8.5 Fr; Orientation: Right; Location: Internal jugular; Removal Date: 10/13/24; Removal Time: 1400 10/12/24 0738 by Rudolph German FAILURE ANALYSIS TECHNICIAN 10/13/24 1400 by Rj De La Cruz RN Urethral Catheter Placement Date: 10/12/24; Placement Time: 0753; Inserted by: FA; Type: Temperature probe; Balloon Size: 10 mL; Urine Returned: Yes; Removal Date: 10/14/24; Removal Time: 1048; Removal Reason: Per order 10/12/24 0753 by Tracie Pacheco RN 10/14/24 1048 by Hunter Dove RN documented in this encounter [facility] [id number] Anesthesiology procedure note* Anesthesia Procedure Notes - [...] during the procedure: no complications. Staffing Performed: FAILURE ANALYSIS TECHNICIAN Resident/FAILURE ANALYSIS TECHNICIAN: Rudolph German CRNA [facility]01-16-2025 Anesthesiology procedure note* Anesthesia Procedure Notes - Rudolph German CRNA - 10/12/2024 7:49 AM ESTAssociated Order(s): Airway Airway Date/Time: 10/12/2024 7:38 AM Urgency: scheduled Airway not difficult General Information and Staff Patient location during procedure: Procedural Anesthesiologist: Vincent Wilson MD Resident/FAILURE ANALYSIS TECHNICIAN: Rudolph German CRNA Performed: anesthesiologist Indications [...] 21 Number of attempts at approach: 1 [facility] [id number] Anesthesiology procedure note* Anesthesia Procedure Notes - [...] procedure well with no complications. Staffing Performed: FAILURE ANALYSIS TECHNICIAN Resident/FAILURE ANALYSIS TECHNICIAN: Rudolph German CRNA [facility] [id number] Anesthesiology Preoperative evaluation and management note* Anesthesia Preprocedure Evaluation - Vincent Wilson MD - 10/12/2024 6:56 AM EST Patient: Jair Snyder Procedure Information Date/Time: 10/12/24 0130 Procedures: AORTIC VALVE REPAIR, POSSIBLE REPLACEMENT (Chest) - 7:30 am, 5 hours TRICUSPID REPLACEMENT WITH RING (Chest) TRANSESOPHAGEAL ECHOCARDIOGRAM Location: [facility] Operating Room Surgeons: Luciano Montemayor MD Relevant Problems Cardio (+) Aortic stenosis (+) Atrial flutter, unspecified type ([facility]) (+) Calcification of abdominal aorta ([facility]) (+) HTN (hypertension) (+) Nonrheumatic aortic valve stenosis (+) Paroxysmal A-fib ([facility]/HCC) ([facility]) GI (+) Diverticulosis /Renal (+) ESRD on hemodialysis ([facility]) ([facility]) (+) 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 Past Medical History: Past Medical History: 10/19/2019: Acute renal failure (ARF) ([facility]) 12/30/2021: Anemia 10/08/2023: Calcification of abdominal aorta ([facility]) Comment: 09/[address] abd 10/08/2023: Diverticulosis 10/26/2019: ESRD on hemodialysis ([facility]) ([facility]) No date: Hemodialysis patient ([facility]) ([facility]) 12/01/2022: HTN (hypertension) No date: Hypertension No date: IgA nephropathy 10/26/2019: 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 10/08/2023: Missed vaccination due to patient refusal Comment: Has a number of non-scientific based beliefs which interfere with his understanding and acceptance of the medical benefit of vaccination. 10/08/2023: Nonrheumatic aortic valve stenosis 08/18/2023: Paroxysmal A-fib ([facility]) ([facility]) 10/08/2023: Tobacco abuse Past Surgical History: Past Surgical History: No date: APPENDECTOMY 10/09/2024: CARDIAC CATHETERIZATION; N/A Comment: Performed by Bob Watson MD at [facility] Cardiac Cath/EP Lab 09/15/2021: FISTULAGRAM (HISTORICAL); Left Comment: LEFT UPPER ARM No date: HX AV FISTULA CREATION 08/07/2022: IR FISTULAGRAM Comment: IR FISTULAGRAM 08/07/2022 [facility] IR IMAGING No date: TONSILLECTOMY (HISTORICAL) Social [...] 10:45 AM Equipment Requests: Additional Equipment Requests [facility] [id number] History of Present illness Narrative* Jr Shah MD - 08/28/2024 3:15 PM EST Images from the original note were not included. [facility] - [address] [place] [id number] Dept: [phone] Dept Visit type: Established : 1965 Reason for Visit: 6 Month Follow-up Assessment and Plan 1. Paroxysmal A-fib (CMS/HCC) ([facility]) Assessment & Plan: Paroxysmal. Infrequent episodes that [...] months (around 02/26/2025) for [facility] f/u in [place]. Subjective Afib after admission 07/2023. ESRD on HD 3 days/week. Aortic stenosis. HTN. - all factors that could contribute to a fib. 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 He was going to [facility] to discuss renal transplant but stopped because [...] On theother hand, a mechanical valve with fci OAC carries its own risks with a patient who gets dialysis. Has not followed up in a year. Today: HD on T Wed. He is oliguric. Afib Sxs: Has [...] none/quit. Pt would like to f/u in [place]. Was concerned about location and level of [...] History: Diagnosis Date Acute renal failure (ARF) ([facility]) 10/19/2019 Anemia 12/30/2021 Calcification of abdominal aorta ([facility]) 10/08/202309/[address] abd Diverticulosis 10/08/2023 ESRD on hemodialysis ([facility]) ([facility]) 10/26/2019 Hemodialysis patient ([facility]) ([facility]) HTN (hypertension) 12/01/2022 Hypertension IgA nephropathy 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 10/26/2019 Missed vaccination due to patient refusal 10/08/2023 Has a number of non-scientific based beliefs which interfere with his understanding and acceptance of the medical benefit of vaccination. Nonrheumatic aortic valve stenosis 10/08/2023 Paroxysmal A-fib ([facility]) ([facility]) 08/18/2023 Tobacco abuse 10/08/2023 Social History Tobacco [...] medical care for thiscondition(s). documented in this [facility]12-02-2024 Evaluation + Plan note* Assessment & Plan Note - Jr Shah MD - 08/28/2024 1:07 PM EST Associated Problem(s): Alcohol use disorder in remission Says he is a functioning alcoholic. Stopping drinking in 2020. -Recommend stay quit due to addiction and risk of bleeding. [facility] [id number] Evaluation + Plan note* Assessment & Plan Note - Jr Shah MD - 08/28/2024 1:07 PM ESTAssociated Problem(s): Tobacco abuse 1 ppd. Recommend complete cessation. -Recommend CT lung cancer screening. [facility] [id number] Miscellaneous Notes* Assessment & Plan Note - [...] PM EST Associated Problem(s): Paroxysmal A-fib (CMS/HCC) ([facility]) Paroxysmal. Infrequent episodes that he feels, does [...] ablation, watchman device, etc. documented in this [place] [id number] Evaluation + Plan note* Assessment & Plan [...] which will need to be carefully considered. [facility] [id number] Evaluation + Plan note* Assessment & Plan Note - Jr Shah MD - 08/28/2024 1:01 PM ESTAssociated Problem(s): Paroxysmal A-fib (CMS/HCC) ([facility]) Paroxysmal. Infrequent episodes that he feels, does [...] see EP, discuss ablation, watchman device, etc. [facility] [id number] History of Present illness Narrative* Alan Barroso RN - 05/10/2024 2:38 PM EDT Dialysis center status inquiry form received from [facility]. Form completed and faxed back to ELIA Marin at [phone]. Patient was called 04/12/2024 but voicemail was full, letter was sent to please call the office at [phone] to complete intake. Referral was closed. Please have patient call the office to complete intake. JHONY Meier RN May 10, 2024 2:41 PM [facility] Telephone encounter Note * Telephone Encounter - Lanie Luis - 04/12/2024 11:49 AM EDT I called patient to start the kidney referral intake process. Voicemail is full, sent a letter out. Lanie [facility]07-17-2024 Miscellaneous Notes* Telephone Encounter - Lanie Luis - 04/12/2024 11:49 AM EDT I called patient to start the kidney referral intake process. Voicemail is full, sent a letter out. Lanie [facility] Telephone encounter Note * Telephone Encounter - Tracie Chin RN - 02/14/2024 10:23 AM EDT Called LM with pt with central scheduling number. Advised to call to schedule echo. [place] [id number] Miscellaneous Notes* Telephone Encounter - Tracie Chin RN - 02/14/2024 10:23 AM EDT Called LM with pt with central scheduling number. Advised to call to schedule echo. * Telephone Encounter - Dorcas Pabon - 02/12/2024 10:28 AM EDT Unable to contact patient - called and lvm and sent mychart message for echo [employer] documented in this [facility]05-18-2024 Telephone encounter Note* Telephone Encounter - Dorcas Pabon - 02/12/2024 10:28 AM EDT Unable to contact patient - called and lvm and sent mychart message for echo [facility] [place] [id number] Miscellaneous Notes* Telephone Encounter - Dorcas Pabon - 02/12/2024 10:28 AM EDT Unable to contact patient - called and lvm and sent mychart message for echo [employer] documented in this [place] [id number] Telephone encounter Note* Telephone Encounter - Dorcas Pabon - 02/12/2024 10:23 AM EDT Unable to contact patient to schedule CT lung screening - called and sent mychart message [facility] [address] [id number] Miscellaneous Notes* Telephone Encounter - Dorcas Pabon - 02/12/2024 10:23 AM EDT Unable to contact patient to schedule CT lung screening - called and sent [employer] message [employer] documented in this [facility]SUniversity [facility] [id number] Evaluation + Plan note* Assessment & Plan Note - DENIA Dumont CNP - 11/12/2023 4:50 PM EST Associated Problem(s): Tobacco abuse 1 ppd. Recommend complete cessation. Consider CT lung cancer screening. [facility] CenterQskgal28-62-4722 Miscellaneous Notes* Assessment & Plan Note - [...] than just dialysis days. documented in this [facility]02-16-2024 Evaluation + Plan note* Assessment & Plan Note - DENIA Dumont CNP - 11/12/2023 4:48 PM EST Associated Problem(s): Calcification of abdominal aorta (HCC) Sep 2023, by chart review this is the only ASCVD finding. Utility of lipid- lowering agent controversial in ESRD and does not appear to be improved with moderate intensity statins. -expectant mgt [facility] [id number] Evaluation + Plan note* Assessment & Plan Note - DENIA Dumont CNP - 11/12/2023 4:48 PM ESTAssociated Problem(s): HTN (hypertension) Goal BP < 130/80 mmHg. BP today in office borderline. -continues on toprol XL -mgt per PCP and renal [place] [id number] Evaluation + Plan note* Assessment & Plan [...] cardiac intervention that he is open to. [place] [id number] Evaluation + Plan note* Assessment & Plan [...] dose overall, rather than just dialysis days. [facility] [id number] History of Present illness Narrative* DENIA Dumont CNP - 11/12/2023 1:30 PM EST Images from the original note were not included. [facility] [address] [place] [address] [address] [facility] [id number] Dept: [phone] Dept Loc: [phone] Visit type: Established : 1965 Reason for [...] he is open to. 2. Paroxysmal A-fib ([facility]/HCC) ([facility]) Assessment & Plan: Paroxysmal. Refer to Dr. 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 Today: He [...] History: Diagnosis Date Acute renal failure (ARF) ([facility]) 10/19/2019 Anemia 12/30/2021 Calcification of abdominal aorta ([facility]) 10/08/202309/[address] abd Diverticulosis 10/08/2023 ESRD on hemodialysis ([facility]) ([facility]) 10/26/2019 Hemodialysis patient ([facility]) ([facility]) HTN (hypertension) 12/01/2022 Hypertension IgA nephropathy 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 10/26/2019 Missed vaccination due to patient refusal 10/08/2023 Has a number of non-scientific based beliefs which interfere with his understanding and acceptance of the medical benefit of vaccination. Nonrheumatic aortic valve stenosis 10/08/2023 Paroxysmal A-fib (CMS/HCC) (HCC) 08/18/2023 Tobacco abuse 10/08/2023 Social History Tobacco [...] PM DENIA Dumont CNP documented in this [facility]02-05-2024 Telephone encounter Note* Telephone Encounter - Sydni Rodrigues - 11/01/2023 9:41 AM EST Called pt lmom for a return call to set up appt [facility] CenterIalota45-03-1886 Miscellaneous Notes* Telephone Encounter - Sydni Rodrigues [...] 10/14/2023 7:58 AM EST Preferred contact number: [phone] Reason for Visit: Jun called in to cancel his appt this morning. He woke up and is very sick. Please contact him to reschedule. Urgency of Appointment: office visit documented in this [facility]01-22-2024 Telephone encounter Note* Telephone Encounter - Sydni Rodrigues - 10/18/2023 2:34 PM EST Called pt LMOM for a return call to set up appt [facility] [id number] Telephone encounter Note* Telephone Encounter - Sydni Rodrigues - 10/14/2023 8:56 AM EST Called pt LMOM for a return call to r/s appt [facility] [id number] Telephone encounter Note* Telephone Encounter - Regino Ortiz - 10/14/2023 7:58 AM EST Preferred contact number: [phone] Reason for Visit: Jun called in to cancel his appt this morning. He woke up and is very sick. Please contact him to reschedule. Urgency of Appointment: office visit [facility] CenterVbfmwe32-39-2664 Telephone encounter Note* Telephone Encounter - Darya Payne - 08/23/2023 1:47 PM EST 2nd attempt to schedule, no answer, left message. [facility] CenterLphsnx95-26-8985 Miscellaneous Notes* Telephone Encounter - Darya Payne [...] 8:30 AM EST ----- Patient discharged from [facility]. Please assist with s/p hosp [place], [place] within the next ~week. Thanks! documented in this [facility]11-22-2023 Telephone encounter Note* Telephone Encounter - Daryawilton Payne - 08/18/2023 2:13 PM EST Left message requesting a call back from the patient to schedule appointment. [facility] CenterYoojjt27-22-5760 Telephone encounter Note* Telephone Encounter - Darya Payne - 08/18/2023 2:12 PM EST ----- Message from DENIA Dumont CNP sent at 08/18/2023 8:30 AM EST ----- Patient discharged from [facility]. Please assist with s/p hosp [place] within the next ~week. Thanks! [facility] CenterUzqfpb55-12-6257 Emergency department Note* Mary Ann Meraz RN - 08/17/2023 3:11 PM EST Patient education given in regard to medications, as well as following-up with PCP. Patient given eliquis information packet, understanding well. Mary Ann Meraz RN 08/17/231510 [id number] Emergency department Note* Mary Ann Meraz RN - 08/17/2023 3:11 PM EST Patient education given in regard to medications, as well as following-up with PCP. Patient given eliquis information packet, understanding well. Mary Ann Meraz RN 08/17/23 151 * Dangelo Horne DO - 08/16/2023 6:16 PM EST Emergency Department Encounter [facility] ED Patient: Jun Snyder : 1965 Date [...] 08/16/2023 6:16 PM EST Emergency Department Encounter [facility] ED Patient: Jun Snyder : 1965 Date [...] CREATION IR FISTULAGRAM 08/07/2022 IR FISTULAGRAM 08/07/2022 [facility] IR IMAGING TONSILLECTOMY (HISTORICAL) Social History Socioeconomic [...] gross facial drooping. No obvious neurologic deficits. Crocheter Hand strength symmetrical. Moves all 4 extremities spontaneously. [...] 364 ms QTC Interval 491 ms P Ama degrees QRS Ama 61 degrees T Wave Ama -20 degrees WI Interval ms Radiographs: XR chest 1 view Final Result 1. Cardiomegaly. 2. No other acute findings. Report Dictated on Electronically Signed By: Justo Milan MD Electronically Signed Date/Time: 08/16/2023 6:42 PM EST : EKG: All EKG's areinterpreted by the Emergency Department Physician in the absence of a farmer and grazier. see their note for interpretation of EKG. [...] for new onset A-fib. Patient excepted to [facility]. Final Diagnosis: 1. New onset a-fib (CMS/[facility]ER[facility]) ([facility]) Medications - No data to display Diagnoses as of 08/16/232129 New onset a-fib (CMS/[facility]ER[facility]) ([facility]) CRITICAL CARE TIME CONSULTS: None PROCEDURES: Unless otherwise noted below, none Procedures DISPOSITION/PLAN Admit 08/16/2023 08:09:48 PM PATIENT REFERRED TO: No follow-up provider specified. DISCHARGE MEDICATIONS: New Prescriptions No medications on file @[facility]([id number]:LAST:1)@ (Please note: Portions of this note were completed with a voice recognition program. Efforts were made to edit the dictations but occasionally words and phrases are mis-transcribed.) Form [id number] Sha Granados PA-C [employer] Sha Granados PA-C 08/16/232129 documented in this [facility]11-21-2023 Hospital Discharge instructions* Discharge Instr - Other Orders* DENIA Lorenzo CNP - 08/17/2023 3:02 PM EST Please discontinue Labetalol and Caduet; see discharge medication list Next dialysis session is 08/18/23 as previously instructed * Attachments The following attachments cannot be sent through Care Everywhere. * Atrial Fibrillation ([place] Citizen) * Going Home on Blood Thinners ([place] Citizen) * Apixaban, ADULT ([place] Citizen) documented in this [facility]11-21-2023 History of Present illness Narrative* Dorcas Chin, LOG HANDLING EQUIPMENT OPERATOR - WHITE SHOE RAGGER - 08/17/2023 11:00 AM EST Images from [...] Past Medical History: Diagnosis Date Hemodialysis patient ([facility]) (HCC) Hypertension IgA nephropathy LABS: CBC: Recent [...] Information Primary Emergency Contact: Alexx Snyder Address: [address] [place] [address]. [place] [id number] [facility] Mobile Relation: Child DENIA Lorenzo CNP Division of Hospitalist Medicine Inpatient Medical Services/[facility] Comment: Please note this report has been [...] reflects time of documentation. documented in this [facility]11-21-2023 Consult note* Rj Villela MD - 08/17/2023 10:16 AM ESTAssociated Order(s): IP CONSULT TO CARDIOLOGY [facility] CARDIOLOGY CONSULTATION Patient Name: Jun [...] left heart disease. Rj Villela M.D., F.A.C.C. Coal Feeder Operator Chief, Division of Cardiac Imaging Clinical Painter Rough, [facility] Data Collection Cardiac Testin08/16/23 ECG 12-LEAD 08/17/2023 [...] a past medical history of Hemodialysis patient ([facility]/HCC) (HCC), Hypertension, and IgA nephropathy. He has [...] alert. Psychiatric: Mood and Affect: Mood normal. [employer] Work Phone: 1(585) 522-588211-21-2023 Consult note* Rj Vilella MD - 08/17/2023 10:16 AM ESTAssociated Order(s): IP CONSULT TO CARDIOLOGY [facility] CARDIOLOGY CONSULTATION Patient Name: Jun Snyder : [...] left heart disease. Rj Villela M.D., F.A.C.C. Coal Feeder Operator Chief, Division of Cardiac Imaging Clinical Painter Rough, [facility] Data Collection Cardiac Testin08/16/23 ECG 12-LEAD 08/17/2023 [...] and Affect: Mood normal. documented in this [facility]11-20-2023 History and physical note* Earlene Irving MD - 08/16/2023 8:38 PM EST Images from the original note were not included. History and Physical [facility] Jun Snyder : 1965 AGE 57 y.o. [...] WedAug 16, 2023 8:09 PM (Active) Physician Used Building Materials Yard Worker: Sha Granados PA-C, starting on WedAug 16, [...] him When he was getting dialysis his fabrication welder detected irregular rhythm suspected A-fib and referred [...] Past Medical History: Diagnosis Date Hemodialysis patient ([facility]) (HCC) Hypertension IgA nephropathy Past Surgical History: [...] 08/16/2023 364 QTC Interval 08/16/2023 491 QRS Ama 08/16/2023 61 T Wave Ama 08/16/2023 -20 SODIUM 08/16/2023 133 (L) POTASSIUM [...] QT Interval 364 QTC Interval 491 P Ama QRS Ama 61 T Wave Ama -20 WI Interval Impression ATRIAL FIBRILLATION, V-RATE 88-139 INCOMPLETE [...] monitor him on telemetry [facility] we will additionally request echocardiogram. He is not experiencing chest pain but he is a current smoker and I do not see a recent cardiac work-up in the computer EKG on admission did confirm atrial fibrillation but he is currently in sinus rhythm Anticoagulation yet to be determined His current [id number] score would be 1 based upon history [...] to due risk bleed/procedure 08/16/2023 Jun Snyder [id number] Any scheduled follow up appointments No future appointments. Extended Emergency Contact Information Primary Emergency Contact: Alexx Snyder [address]: [address] [place] [id number] [place] Relation: Child Portions of this note may be electronically transcribed. Please forward a copy of this H&P to the primary care physician. [id number] History and physical note* Earlene Irving MD - 08/16/2023 8:38 PM EST Images from the original note were not included. History and Physical [facility] Jun Snyder : 1965 AGE 57 y.o. [...] WedAug 16, 2023 8:09 PM (Active) Physician Used Building Materials Yard Worker: Sha Granados PA-C, starting on WedAug 16, [...] him When he was getting dialysis his fabrication welder detected irregular rhythm suspected A-fib and referred [...] Past Medical History: Diagnosis Date Hemodialysis patient ([facility]) (HCC) Hypertension IgA nephropathy Past Surgical History: Procedure Laterality Date APPENDECTOMY FISTULAGRAM (HISTORICAL) Left 09/15/2021 LEFT UPPER ARM HX AV FISTULA CREATION IR FISTULAGRAM 08/07/2022 IR FISTULAGRAM 08/07/2022 [facility] IR IMAGING TONSILLECTOMY (HISTORICAL) Allergies Allergen Reactions [...] 08/16/2023 364 QTC Interval 08/16/2023 491 QRS Ama 08/16/2023 61 T Wave Ama 08/16/2023 -20 SODIUM 08/16/2023 133 (L) POTASSIUM [...] QT Interval 364 QTC Interval 491 P Ama QRS Ama 61 T Wave Ama -20 WI Interval Impression ATRIAL FIBRILLATION, V-RATE 88-139 INCOMPLETE [...] monitor him on telemetry asked cardiology to al we will additionally request echocardiogram. He is not experiencing chest pain but he is a current smoker and I do not see a recent cardiac work-up in the computer EKG on admission did confirm atrial fibrillation but he is currently in sinus rhythm Anticoagulation yet to be determined His current [id number] score would be 1 based upon history [...] to due risk bleed/procedure 08/16/2023 Jun Snyder [id number] Any scheduled follow up appointments No future appointments. Extended Emergency Contact Information Primary Emergency Contact: Alexx Snyder Address: [address] [place] [address]. [place] [address] [facility] of [place] Mobile Relation: Child Portions of this note may be electronically transcribed. Please forward a copy of this H&P to the primary care physician. documented in this [facility]11-20-2023 Physician Emergency department Note* Dangelo Horne DO - 08/16/2023 6:16 PM EST Emergency Department Encounter [facility] ED Patient: Jun Snyder : 1965 Date [...] for clarification.) Dangelo Horne DO Acute Care [facility] Dangelo Horne DO 08/16/231922 Dangelo Horne DO 08/16/231957 [employer] Phone: 1(595) 249-389911-20-2023 Physician Emergency department Note* Sha Granados PA-C - 08/16/2023 6:16 PM EST Emergency Department Encounter [facility] ED Patient: Jun Snyder : 1965 Date [...] gross facial drooping. No obvious neurologic deficits. Crocheter Hand strength symmetrical. Moves all 4 extremities spontaneously. [...] 364 ms QTC Interval 491 ms P Ama degrees QRS Ama 61 degrees T Wave Ama -20 degrees WI Interval ms Radiographs: XR chest 1 view Final Result 1. Cardiomegaly. 2. No other acute findings. Report Dictated on Electronically Signed By: Justo Milan MD Electronically Signed Date/Time: 08/16/2023 6:42 PM EST : EKG: All EKG's areinterpreted by the Emergency Department Physician in the absence of a farmer and grazier. see their note for interpretation of EKG. [...] for new onset A-fib. Patient excepted to [facility]. Final Diagnosis: 1. New onset a-fib (CMS/HCC) (HCC) Medications - No data to display Diagnoses as of 08/16/232129 New onset a-fib (CMS/HCC) (HCC) CRITICAL CARE TIME CONSULTS: None PROCEDURES: Unless otherwise noted below, none Procedures DISPOSITION/PLAN Admit 08/16/2023 08:09:48 PM PATIENT REFERRED TO: No follow-up provider specified. DISCHARGE MEDICATIONS: New Prescriptions No medications on file @[facility]([id number]:LAST:1)@ (Please note: Portions of this note were completed with a voice recognition program. Efforts were made to edit the dictations but occasionally words and phrases are mis-transcribed.) Form [id number] Sha Granados PA-C [facility] Care [facility] Sha Granados PA-C 08/16/232129 [facility]08-05-2023 Hospital Discharge instructions* Discharge Instructions* Jese Frank [...] petroleum jelly on it. documented in this [facility]08-05-2023 Emergency department Note* Jese Frank MD - [...] ESRD (end stage renal disease) on dialysis ([facility]) * No order type specified * MDM: [...] ESRD (end stage renal disease) on dialysis ([facility]) DISPOSITION/PLAN DISPOSITION Discharge 05/01/2023 08:15:56 PM PATIENT REFERRED TO: Daryn Loomis MD [address] [facility] [address] In 1 week [facility] [address] [place] [address] [address] [address] I prescribed: New Prescriptions EMOLLIENT [...] bleeds occasionally. Patient was seen in [facility] a month ago for the same problem. Bed locked and low position, call light within reach. Patient has no further needs. documented in this [facility]08-05-2023 Emergency department Triage note* Sony Dacosta RN - 05/01/2023 7:35 PM EDT Patient to ER room 6 without difficulty. Patient is a dialysis patient Wednesday and Wednesday. Patient had dialysis today . Has small sore close to dialysis site that bleeds occasionally. Patient was seen in [facility] a month ago for the same problem. Bed locked and low position, call light within reach. Patient has no further needs. [facility] [id number] Physician Emergency department Note* Jese Frank MD [...] ESRD (end stage renal disease) on dialysis ([facility]): complicated acute illness or injury Skin sore: [...] ESRD (end stage renal disease) on dialysis ([facility]) * No order type specified * MDM: [...] ESRD (end stage renal disease) on dialysis ([facility]) DISPOSITION/PLAN DISPOSITION Discharge 05/01/2023 08:15:56 PM PATIENT REFERRED TO: Daryn Loomis MD [address] [facility] [address] In 1 week [facility] [address] [place] [phone] Wound Care [address] [address] I prescribed: New Prescriptions EMOLLIENT [...] MD (electronically signed) Jese Frank MD 05/01/232038 T [facility] [id number] Miscellaneous Notes* Telephone Encounter - Karly Fortune Pss - 01/01/2022 2:36 PM EDT I scheduled him w/ Dr. reid on WednesdayFebruary 16 and left him a detailed vm that I did. This is all have at [facility] bc we are in to March and jair needs a Wednesday or Wednesday bc of dialysis I am sorry, I don't have solution or advise for hospital schedule issues. Next best thing is to discuss with Naomi. May be when Dr. King or Marti come in for special cases to [facility], can this case beincluded at that time. Or if you cancel [facility] schedule and make room for me to come to [facility] any day I can get this done. Thanks! * Telephone Encounter - Karly Kumar - 12/30/2021 10:36 AM EDT Antonio I had him scheduled for his colon w/ you for next WednesdayJanuary 05 but Peggy ramirez said he has to be done at [facility] of his hgb. I have no openings at [facility] and I don't know what to do Can you please let me know how to proceed. Thank you Eryn PS I NEED A NEW COLON ORDER FOR [facility] Miscellaneous Notes* Telephone Encounter - Karly Fortune Pss - 12/30/2021 9:33 AM EDT Antonio Painter saw a patient the other day and he ordered him a colon for blood loss anemia I scheduled him for [facility] but his hgb is 6 so Charo wants him at [facility] . He is also on dialysisand could only do a Wednesday. All docs are booked until March You had a cancellation for next . Can I please put him w/ you? Thank you Eryn documented in this [facility]-04-2022 Miscellaneous Notes* Telephone Encounter - Karly Fortune Pss - 12/29/2021 4:18 PM EDT Hello I know this patient saw Inocencio the other day as a new patient. I have him scheduled her and his hgb is 6 Could you please do an order for me? I have to get him on tayo Thanks Eryn documented in this [facility]03-31-2022 History of Present illness Narrative* Rudy Painter [...] for internal providers or letter via the [employer] for external providers. HPI: Jun Snyder is [...] CKD (chronic kidney disease) Dialysis T//Sat @ [facility], Home hemodialysis since 09/2019 Diverticulosis [...] 3:56 PM documented in this [facility]Ohio [facility]01-31-2020 History of Present illness Narrative* Miracle Jaramillo RN - 10/27/2019 9:00 PM EST Patient left via wheelchair with family member. Pt left with all of documented belongings. * Blane Lei RN - 10/27/2019 2:30 PM EST Patient Name: Glenn Snyder Patient : 1965 Acct: [id number] Date of Admission: 10/19/2019 Room/Bed: [facility] Code Status: Full Code Allergies: Allergies Allergen [...] (Bicarb): 35 Na+ Modeling: Not Applicable Dialyzer: [id number] Dialysate Temperature (C): 36 Blood Flow Rate [...] Sounds (All Quadrants) Edema Pain Level 10/27/19 141 0 3 Regular Unlabored None (Room air) [...] - Before each treatment: Dialysis Machine No.: [id number] RO Machine No.: [id number] Dialyzer Lot No.: [id number] RO Machine Log Sheet Completed: Yes Machine Alarm Self Test: Completed;Passed (10/27/191409) Machine Autotest: Completed, Passed Air Foam Detector: Tested, Proper Function, pH Reading Extracorporeal Circuit Tested for Integrity: Yes Machine Conductivity: 13.9 Manual Conductivity: 13.7 Machine Ph: 7 Manual Ph: 7 Bleach Test (Neg): Yes Bath Temperature: 96.8 F (36 C) Tubing Lot#: [id number] Conductivity Meter Serial #: [id number] All Connections Secure?: Yes Venous Parameters Set?: Yes Arterial Parameters Set?: Yes Saline Line Double Clamped?: Yes Air Foam Detector Engaged?: Yes Machine Functioning Alarm Free? Yes Prime Given: 200ml Chlorine Testing - Before each treatment and every 4 hours: Treatment Treatment Number: 5 Time On: 1417 Time Off: 1817 Treatment Goal: 2500 Weight: 188 lb 11.4 oz (85.6 kg) (10/27/191409) 1st check: less than 0.1 ppm at: [...] Pedraza MD - 10/27/2019 11:26 AM EST [facility] Progress Note SUBJECTIVE: Glenn Snyder [...] never had kidney Bx and never saw fabrication welder before BLOSSOM might be from CKD progression [...] . Pt is likely ESRD. Pt on [facility] HD schedule. Last HD session 10/25 Next HD session today Pt has HD spot at [facility]. 2- Hyperkalemia: resolved with HD 3-high anion gap acidosis likely from CKD and BLOSSOM Resolved with HD 4- Hyperphosphatemia: Continue Phosphorus binder 5- HTN: Improved with HD. Continue same BP meds Monitor BP Ok to d/c patient from nephro stand point Will continue to follow Please call if any question at [phone] JEANA PEDRAZA MD 10/27/2019 11:26 AM * [...] never had kidney Bx and never saw fabrication welder before BLOSSOM might be from CKD progression [...] follow Please call if any question at [phone] JEANA PEDRAZA MD 10/26/2019 4:25 PM * Kimber Bajwa RN - 10/26/2019 10:46 AM EST Patient returned from US renal biopsy. VSS, see record. Bandaide is dry and intact to right flank area. Patient instructed on need for bedrest until 12:45. * Darell Sanches, DO - 10/26/2019 8:19 AM EST Hospitalist Progress Note 10/26/2019 8:19 AM [phone]: Please page me ([phone]) for patient care issues. [phone]: Please page [facility] night Hospitalist for any [...] lab Plan -daily weights, I&Os, dialysis per fabrication welder -renal biopsy and dialysis cath pending, fabrication welder following -am labs, replace lytes prn -increase activity -DVT prophylaxis: [] Lovenox [x] Heparin [] SCDs [x] Encourage ambulation [] Already on Anticoagulation Advance Directive: Full Code Discharge planning: Awaiting dialysis cath and renal biopsy. Can be discharge once outpatient dialysis arrangements have been made Darell Sanches DO Division of Hospitalist Medicine Inpatient Medical Services PAGER: [phone] * Ivett Cope RN - 10/25/2019 4:23 [...] and discharge needs Received a call from [email or web address] regarding pt dialysis chair spot. Was informed that they willhave a spot for the pt on Wednesday of next week. I explained that plans are for pt to receive tunneled dialysis cath tomorrow, 10/26/2019. She stated that he will have a spot on Oct 30 for dialysis * Rodolfokathleen Ellie, RD, LD - 10/25/2019 4:22 PM EST [...] 5. Fluid Accumulation-No significant fluid accumulation, 6. Crocheter Hand Strength-Normal Nutrition Risk Level: High Nutrient Needs: Estimated Daily Total Kcal: 7660-6903 Estimated Daily Protein (g): 60-90 Estimated Daily Total Fluid (ml/day): per md Nutrition Diagnosis: Problem: Altered nutrition-related lab values, Predicted suboptimal energy intake, Increased nutrient needs Etiology: related to Renal dysfunction ? Signs and symptoms: as evidenced by Known losses from dialysis, Weight loss, Lab values Objective Information: Nutrition-Focused Physical Findings: appetite improved, no edema, bun 39 , creat 9.71, wbc11.0ewbxy4.3,on renvela tid- NO DRY WT EST. off [...] kg)(summer 2018) % Weight Change: , na [place] Body Wt: 166 lb (75.3 kg), % [place] Body 121 Adjusted Body Wt: , body [...] EST Hospitalist Progress Note 10/25/2019 5:02 PM [phone]: Please page me ([phone]) for patient care issues. [phone]: Please page [facility] night Hospitalist for any issues. Subjective: Admit [...] lab Plan -daily weights, I&Os, dialysis per fabrication welder -renal biopsy and dialysis cath pending, fabrication welder following -am labs, replace lytes prn -increase activity -DVT prophylaxis: [] Lovenox [x] Heparin [] SCDs [x] Encourage ambulation [] Already on Anticoagulation Advance Directive: Full Code Discharge planning: awaiting dialysis cath and renal biopsy Darell Sanches DO Division of Hospitalist Medicine Inpatient Medical Services PAGER: [phone] * Ramon Mei RN - 10/25/2019 11:46 AM EST Patient Name: Glenn Snyder Patient : 1965 Acct: [id number] Date of Admission: 10/19/2019 Room/Bed: 156/1561 Code [...] (Bicarb): 35 Na+ Modeling: Not Applicable Dialyzer: [id number] Dialysate Temperature (C): 36 Blood Flow Rate [...] Audible None 0 10/25/19 1124 tx started 10/25/191126 no complaints from pt 10/25/19 1523 0 3 Regular Unlabored Clear Appropriate for ethnicity Warm;Dry Fair Soft;Rounded Nonept has no complaints 10/25/19 152 tx ended, blood returned 0 10/25/19 152 blood returned 0 Labs Recent Labs 10/23/19 [...] - Before each treatment: Dialysis Machine No.: [id number] RO Machine No.: [id number] Dialyzer Lot No.: [id number] RO Machine Log Sheet Completed: Yes Machine Alarm Self Test: Completed;Passed (10/25/191119) Machine Autotest: Completed, Passed Air Foam Detector: Tested, Proper Function, pH Reading Extracorporeal Circuit Tested for Integrity: Yes Machine Conductivity: 14 Manual Conductivity: 14.1 Machine Ph: 7 Manual Ph: 7 Bleach Test (Neg): Yes Bath Temperature: 96.8 F (36 C) Tubing Lot#: [id number] Conductivity Meter Serial #: [id number] All Connections Secure?: Yes Venous Parameters Set?: Yes Arterial Parameters Set?: Yes Saline Line Double Clamped?: Yes Air Foam Detector Engaged?: Yes Machine Functioning Alarm Free? Yes Prime Given: 200ml Chlorine Testing - Before each treatment and every 4 hours: Treatment Treatment Number: 4 Time On: 1123 Time Off: 1523 Treatment Goal: 2500 Weight: 188 lb 12.8 oz (85.6 kg) (10/25/191526) 1st check: less than 0.1 ppm at: [...] 700 pt feeling better,UF turned back on. notified Yes 10/25/19 1300 400 ml/min 720 [...] Notification Provider Notification Reason for Communication: Evaluate (10/25/191244) Provider Name: Keila (10/25/19 [facility]) Provider Notification: Physician (10/25/191244) Method of Communication: Call (10/25/191244) Response: No new orders (10/25/191244) Notification Time: 1224 (10/25/191244) Handoff complete and report given to Primary [...] Pedraza MD - 10/25/2019 7:58 AM EST [facility] Progress Note SUBJECTIVE: Glenn Snyder [...] Diagnosis Date Noted Acute renal failure (ARF) ([facility]) 10/19/2019 ASSESSMENT/PLAN: 1. BLOSSOM . Pt likely has CKD at baseline. No previous Cr values to compare. CKD could be from HTN induced nephrosclerosis VS GN since the patient has h/o proteinuria /hematuria since 2000 but he never had kidney Bx and never saw fabrication welder before BLOSSOM might be from CKD progression [...] follow Please call if any question at [phone] JEANA PEDRAZA MD 10/25/2019 7:58 AM * Ellie Mireles RD, VICENTE - 10/24/2019 3:43 PM EST Patient to be discharged today . Provided diet education for renal diet- 80- 90 gm pro, 2000 calorie, 2 gram potassium, [address] contact number for questions., concerns . Will follow upif not discharged. * Darell Sanches DO - 10/24/2019 11:38 AM EST Hospitalist Progress Note 10/24/2019 11:38 AM [phone]: Please page me ([phone]) for patient care issues. [phone]: Please page [facility] night Hospitalist for any [...] lab Plan -daily weights, I&Os, dialysis per fabrication welder -renal biopsy and dialysis cath pending, fabrication welder following -am labs, replace lytes prn -increase activity -DVT prophylaxis: [] Lovenox [x] Heparin [] SCDs [x] Encourage ambulation [] Already on Anticoagulation Advance Directive: Full Code Discharge planning: ok to discharge today pending renal biopsy and dialysis cath placement Darell Sanches DO Division of Hospitalist Medicine Inpatient Medical Services PAGER: [phone] * Ivett Cope RN - 10/24/2019 10:48 AM EST Microbiology called, pt has 3x blood cultures drawn on 10/19. One came back with Gram positive rods.[employer] message sent to [facility] Dr Sanches regarding results * Jeana Pedraza MD - 10/24/2019 9:15 AM EST [facility] Progress Note SUBJECTIVE: Glenn Snyder [...] never had kidney Bx and never saw fabrication welder before BLOSSOM might be from CKD progression [...] follow Please call if any question at [phone] JEANA PEDRAZA MD 10/24/2019 9:15 AM * Radha Foreman RN - 10/23/2019 7:21 PM EST Patient Name: Glenn Snyder Patient : 1965 Acct: [id number] Date of Admission: 10/19/2019 Room/Bed: [facility]/2225 Code Status: Full Code Allergies: Allergies Allergen [...] Negative HBsAb: Date Drawn: HBsAb not drawn applicable2019 Results: Unknown Order Dialysis Bath K+ (Potassium): 2 Ca+ (Calcium): 2.5 Na+ (Sodium): 138 HCO3 (Bicarb): 35 Na+ Modeling: Not Applicable Dialyzer: [id number] Dialysate Temperature (C): 35 Blood Flow Rate [...] Appropriate for ethnicity Warm;Dry Soft None 10/23/19 171 0 3 Regular Unlabored None (Room air) Clear Appropriate for ethnicity Warm;Dry Fair Soft Active;Present None 0 10/23/19 220 Clear None 4 Labs Recent Labs 10/21/19 [...] - Before each treatment: Dialysis Machine No.: [id number] RO Machine No.: [id number] Dialyzer Lot No.: [id number] RO Machine Log Sheet Completed: Yes Machine Alarm Self Test: Completed;Passed (10/23/191709) Machine Autotest: Completed, Passed Air Foam Detector: Tested, Proper Function, pH Reading Extracorporeal Circuit Tested for Integrity: Yes Machine Conductivity: 13.7 Manual Conductivity: 13.6 Machine Ph: 7 Manual Ph: 7 Bleach Test (Neg): Yes Bath Temperature: 95 F (35 C) Tubing Lot#: [id number] Conductivity Meter Serial #: [id number] All Connections Secure?: Yes Venous Parameters Set?: Yes Arterial Parameters Set?: Yes Saline Line Double Clamped?: Yes Air Foam Detector Engaged?: Yes Machine Functioning Alarm Free? Yes Prime Given: 200ml Chlorine Testing - Before each treatment and every 4 hours: 1st check: less than 0.1 ppm at: 1745 hours 2nd check: less than 0.1 ppm at: 2051 hours 3rd check: Not Applicable (if greater than 0.1 ppm, then check every 30 minutes from secondary) Comment, Waited for RN parking supervisor for 2nd water check. Access Flows and Pressures Patient Vitals for the past 8 hrs: Blood Flow Rate (ml/min) Ultrafiltration Rate (ml/hr) Ultrafiltration Total Arterial Pressure (mmHg) Venous Pressure (mmHg) TMP Hemodialysis Conductivity DFR Comments Access Visible 10/23/19 1749 200 ml/min 380 ml/hr -50 mmHg 20 [...] Pt stable. Denies needs. Familyin room Yes 10/23/192029 400 ml/min 370 ml/hr 1001 ml -150 mmHg 140 50 13.7 800 Pt stable. Family in room. Yes 10/23/192044 400 ml/min 370 ml/hr 1093 ml -150 mmHg 130 50 13.7 800 Pt stable. Talking to family in room Yes 10/23/192099 400 ml/min 370 ml/hr 1187 ml -160 [...] 86 10/23/19 1830 (!) 144/90 85 10/23/19 184 136/84 84 10/23/19 1900 137/84 81 10/23/19 191 129/72 85 10/23/19 1930 (!) 155/85 80 10/23/19 194 (!) 132/99 73 10/23/191999 (!) 132/94 82 [...] Patel MD - 10/23/2019 4:54 PM EST [facility] Progress Note SUBJECTIVE: Glenn Snyder [...] Diagnosis Date Noted Acute renal failure (ARF) ([facility]) 10/19/2019 ASSESSMENT/PLAN: 1. Renal failure, most likely chronic. Discussed with patient in detail. 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 Currently not working. 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 Apparently he was admitted at a hospital in [place] about 5 years ago and had cystoscopy [...] Patel MD 10/23/2019 4:54 PM * Darell Sanches, - 10/23/2019 2:02 PM EST Hospitalist Progress Note 10/23/2019 5:02 PM [phone]: Please page me ([phone]) for patient care issues. [phone]: Please page [facility] night Hospitalist for any [...] anemia Plan -daily weights, I&Os, dialysis per fabrication welder -renal biopsy and temp dialysis cath pending, fabrication welder to arrabge -am labs, replace lytes prn -increase activity -DVT prophylaxis: [] Lovenox [x] Heparin [] SCDs [x] Encourage ambulation [] Already on Anticoagulation Advance Directive: Full Code Discharge planning: likely discharge in next 24 hours Darell Sanches DO Division of Hospitalist Medicine Inpatient Medical Services PAGER: [phone] * Darell Sanches DO - 10/22/2019 2:17 PM EST Hospitalist Progress Note 10/22/2019 2:17 PM [phone]: Please page me ([phone]) for patient care issues. [phone]: Please page [facility] night Hospitalist for any [...] Q8H LABS: CBC: Recent Labs 10/20/19 0408 10/20/19 1847 10/21/19 [...] interval not displayed. BMP: Recent Labs 10/20/19 1847 10/21/19 0532 10/22/19 0430 NA 135 135 137 [...] anemia Plan -daily weights, I&Os, dialysis per fabrication welder -discussed with patient and he is willing to have the renal bx done. Will notify fabrication welder -am labs, replace lytes prn -increase activity -DVT prophylaxis: [] Lovenox [x] Heparin [] SCDs [x] Encourage ambulation [] Already on Anticoagulation Advance Directive: Full Code Discharge planning: likely discharge in next 1-2 days after renal biopsy Darell Sanches DO Division of Hospitalist Medicine Inpatient Medical Services PAGER: [phone] * Randolph Liz MD - 10/22/2019 12:46 PM EST [facility] [address] [place] [address] Progress Note Subjective: Patient seen [...] adenopathy no petechiae Data: Labs: Recent Labs 10/20/1940710/20/19184610/21/19 0532 10/22/19 0430 WBC 9.0 -- -- 9.8 9.3 HGB 6.6* < > 9.0* 9.7* 9.4* HCT 19.3* < > 25.2* 27.6* 27.7* MCV 86.2 -- -- 84.8 86.7 PLT 267 -- -- 299 264 < > = values in this interval not displayed. Recent Labs 10/20/1940710/20/19184610/21/19 0532 10/22/19 0430 NA 136 135 135 137 K 4.7 4.0 4.9 4.3 CL 95* 94* 94* 95* CO2 28 GLUCOSE 102* 110* 103* 94 PHOS 12.3* [...] start binders bp better continue norvasc Randolph Liz M.D 10/22/2019 12:46 PM * Earlene Irving MD - 10/21/2019 10:34 PM EST Hospitalist Progress Note 10/21/2019 10:35 PM [phone]: Please page me ([phone]) for patient care issues. [phone]: Please page [facility] night Hospitalist for any issues. Subjective: Admit [...] 5 mg, 5 mg, Oral, Daily, Randolph Liz MD, 5 mg at 10/21/19 1506 ondansetron (ZOFRAN) injection 4 mg, 4 mg, Intravenous, Q6H PRN, Brett Encarnacion MD, 4 mg at 10/21/19 1713 0.9 % sodium chloride bolus, 20 mL, Intravenous, Once, Delon Jessica, LOG HANDLING EQUIPMENT OPERATOR - WHITE SHOE RAGGER hydrALAZINE (APRESOLINE) injection 10 mg, 10 mg, [...] kg) Intake/Output Summary (Last 24 hours) at 10/21/20195 Last data filed at 10/21/2019 1300 Gross [...] of Hospitalist Medicine Inpatient Medical Services PAGER: [phone] * Randolph Liz MD - 10/21/2019 1:44 PM EST [facility] [address] [place] [address] Progress Note Subjective: Patient seen [...] persistent high bp start norvasc po Randolph Liz M.D 10/21/2019 1:45 PM * Christelle Wolfe RN - 10/21/2019 10:23 AM EST Patient Name: Glenn Snyder Patient : 1965 Acct: [id number] Date of Admission: 10/19/2019 Room/Bed: [address] [place] [address] Code Status: Full Code Allergies: No Known [...] HCO3 (Bicarb): 35 Na+ Modeling: NA Dialyzer: [id number] Dialysate Temperature (C): 36 Blood Flow Rate [...] Regular Unlabored None (Room air) Expiratory wheezes [place] Dry;Warm Distended;Rounded;Soft Audible Generalized 0 10/21/19 1300 0 3 Regular Unlabored None (Room air) Clear;Diminished [place] Dry;Warm Distended;Rounded;Soft Active Generalized 0 Labs Recent Labs 10/19/19 1529 10/20/19 0408 10/20/19 0529 10/20/19 1847 10/21/19 0532 WBC 8.3 9.0 -- -- 9.8 HGB 9.1* 6.6* 6.7* 9.0* 9.7* HCT 26.9* 19.3* 19.6* 25.2* 27.6* PLT 246 267 -- -- 299 Recent Labs 10/20/19 0408 10/20/19 1847 10/21/19 0532 NA 136 135 135 K 4.7 4.0 4.9 CL 95* 94* 94* CO2 BUN 123* 76* 83* CREATININE 13.53* 9.40* 11.16* GLUCOSE 102* 110* 103* IV Drips and Rate/Dose Safety - Before each treatment: Dialysis Machine No.: [id number] RO Machine No.: [id number] Dialyzer Lot No.: [id number] RO Machine Log Sheet Completed: Yes Machine Alarm Self Test: Completed;Passed (10/21/19 0940) Machine Autotest: Completed, Passed Air Foam Detector: Tested, Proper Function, pH Reading Extracorporeal Circuit Tested for Integrity: Yes Machine Conductivity: 13.7 Manual Conductivity: 13.8 Machine Ph: 7 Manual Ph: 7 Bleach Test (Neg): Yes Bath Temperature: 96.8 F (36 C) Tubing Lot#: [id number] Conductivity Meter Serial #: [id number] All Connections Secure?: Yes Venous Parameters Set?: [...] 13.7 600 feeling better BP improved Dr Liz notified and order received Yes 10/21/19 1100 [...] Name: Glenn Snyder Patient : 1965 Acct: [id number] Date of Admission: 10/19/2019 Room/Bed: [address] [place] [address] Code Status: Full Code Allergies: No Known [...] (Bicarb): 35 Na+ Modeling: Not Applicable Dialyzer: [id number] Dialysate Temperature (C): 36 Blood Flow Rate [...] x3 Regular Unlabored None (Room air) Clear [place] Dry;Warm Good Soft Active None 0 10/20/19 [...] - Before each treatment: Dialysis Machine No.: [id number] RO Machine No.: [id number] Dialyzer Lot No.: [id number] RO Machine Log Sheet Completed: Yes Machine Alarm Self Test: Completed;Passed (10/20/19 1525) Machine Autotest: Completed, Passed Air Foam Detector: Tested, Proper Function, pH Reading Extracorporeal Circuit Tested for Integrity: Yes Machine Conductivity: 13.6 Manual Conductivity: 13.6 Machine Ph: 7 Manual Ph: 7 Bleach Test (Neg): Yes Bath Temperature: 96.8 F (36 C) Tubing Lot#: [id number] Conductivity Meter Serial #: [id number] All Connections Secure?: Yes Venous Parameters Set?: [...] Pedraza MD - 10/20/2019 2:42 PM EST [facility] Progress Note SUBJECTIVE: Glenn Snyder [...] never had kidney Bx and never saw fabrication welder before BLOSSOM might be from CKD progression [...] follow Please call if any question at [phone] JEANA PEDRAZA MD 10/20/2019 2:43 PM * Dorcas Chin APRN - CNP - 10/20/2019 12:03 PM EST Patient transferred from ICU to [facility] service * Brett Encarnacion MD - 10/20/2019 [...] []Injected [x]Non-Injected / Pinnae [x]Normal []Other/ Dentitian [][place] Teeth []Dentures Oral Mucosa [x][place] [x]Moist []Dry/ Oral ETT []Present [x]Absent Neck: [...] [x]Absent/ GUAN ([x]RUE [x]RLE [x]LUE [x]LLE) Neurologic: [place] []Yes [x]No Corneal reflexes []Present []Absent / [...] XR CHEST PORTABLE Narrative Patient Name: GLENN SNYDER ---Diagnostic Radiology--- Exam Date/Time 10/19/2019 12:11:06 EST Exam CR Chest Portable Ordering Physician MD ENCARNACION MATTHEW Accession Number [id number] CPT4 Codes 66622 () Reason For Exam line placement/vascath Report [...] [] SC Heparin [] SCD * Ellie Mireles RD, LD - 10/20/2019 11:00 AM EST Nutrition [...] 5. Fluid Accumulation-No significant fluid accumulation, 6. Crocheter Hand Strength-Not measured Nutrition Risk Level: High Nutrient Needs: Estimated Daily Total Kcal: 0133-2128 Estimated Daily Protein (g): 60-90 Estimated Daily [...] Wt: (na) % Weight Change: , na [place] Body Wt: 166 lb (75.3 kg), % [place] Body 132 Adjusted Body Wt: , body [...] Name: Glenn Snyder Patient : 1965 Acct: [id number] Date of Admission: 10/19/2019 Room/Bed: [facility] Code Status: No Order Allergies: No Known [...] (Bicarb): 40 Na+ Modeling: Not Applicable Dialyzer: [id number] Dialysate Temperature (C): 36 Blood Flow Rate [...] - Before each treatment: Dialysis Machine No.: [id number] RO Machine No.: [id number] Dialyzer Lot No.: [id number] RO Machine Log Sheet Completed: Yes Machine Alarm Self Test: Completed;Passed (10/19/19 1245) Machine Autotest: Completed, Passed Air Foam Detector: Proper Function, Tested, pH Reading Extracorporeal Circuit Tested for Integrity: Yes Machine Conductivity: 13.8 Manual Conductivity: 13.7 Machine Ph: 7 Manual Ph: 7 Bleach Test (Neg): Yes Bath Temperature: 96.8 F (36 C) Tubing Lot#: [id number] Conductivity Meter Serial #: [id number] All Connections Secure?: Yes Venous Parameters Set?: [...] 500 K+ bath changed to 2k per ot 10/19/19 1412 200 ml/min 1305 ml -70 [...] to Education: Verbalized Understanding [facility] Work Phone: [phone] Hospital course Narrative* MyronDarell, DO - 10/27/2019 11:23 AM EST Hospitalist [...] to presentation. Admitted to ICU, seen by fabrication welder and HD initiated. Stabilized and transferred out [...] Medications: Glenn Snyder Home Medication Instructions JOSE M:[id number] Printed on:10/27/19 8966 Medication Information amLODIPine (NORVASC) 5 MG tablet Take 1 tablet by mouth daily metoprolol tartrate (LOPRESSOR) 25 MG tablet Take 0.5 tablets by mouth 2 times daily sevelamer (RENVELA) 800 MG tablet Take 2 tablets by mouth 3 times daily (with meals) Recommended Follow-up: fabrication welder In 3 weeks post hospital fu appt Brenton Mckeon MD [address] [facility] [address] In 2 weeks post hospital fu appt Readmission Risk Risk of Unplanned Readmission: 15 Complexity of Follow up: ? Moderate Complexity: follow up within 7-14 calendar days (45184) ? Severe Complexity: follow up within 7 calendar days (54560) Follow up Testing, Pending results or Referrals [...] frame. Signed: Darell Sanches DO [facility] 10/27/2019, 11:23 AM documented in this [facility] Work Phone: [phone] Hospital Discharge instructions* Discharge Instr - Activity* [...] most local grocery stores, pharmacies, and chain [employer]-stores. ? If you have any questions about your diet or nutrition, call the hospital and ask for the dietitian. * Discharge Instr - Lab* Sophia Bai RN - 10/24/2019 2:21 PM EST [facility] [phone] offer services including medical, dental, [facility], behavioral health and a reduced-rate pharmacy. Fees are based on current income and family size. Please refer to your handout for additional information and all location options. [place] [address] [place] [address] Wednesday 8 AM 6 PM Wednesday 8 AM 2 PM Hemodialysis will be Wednesday, Wednesday and Wednesday at [facility] located at [address] [place] [phone] or [phone] Please arrive at 9:45 am * Additional Instructions* Darell Sanches, - 10/24/2019 GENERAL SIGNS AND SYMPTOMS GREEN [...] through Care Everywhere. * Kidney Biopsy: Post-op ([place] Citizen) [facility] Work Phone: Evaluation note* Diagnosis Acute kidney injury (HCC)- Primary Acute kidney failure, unspecified Uncontrolled hypertension Unspecified essential hypertension Normocytic anemia Anemia, unspecified Angioedema, initial encounter Hyperkalemia Hyperpotassemia Metabolic acidosis Acidosis Rectal bleeding Hemorrhage of rectum and anus Acute renal failure (ARF) (HCC) Acute kidney failure, unspecified documented in this encounter [facility] Work Phone: Evaluation note* Diagnosis Acute blood loss anemia- Primary Acute posthemorrhagic anemia Rectal bleeding Hemorrhage of rectum and anus [facility]* Diagnosis Other iron deficiency anemia- Primary Rectal bleeding Hemorrhage of rectum and anus documented [facility]* Diagnosis Skin sore- Primary ESRD (end stage renal disease) on dialysis (HCC) End stage renal disease [facility] Diagnosis New onset a-fib (CMS/HCC) (HCC)- Primary Atrial fibrillation New onset a-fib (CMS/HCC) (HCC) Atrial fibrillation Atrial fibrillation, persistent (HCC) [facility]* Diagnosis Nonrheumatic aortic valve stenosis- Primary Paroxysmal A-fib (CMS/HCC) (HCC) Primary hypertension Unspecified essential hypertension Calcification of abdominal aorta (HCC) Tobacco abuse Tobacco use disorder ESRD on hemodialysis (CMS/HCC) (HCC) documented [facility]* Diagnosis Personal history of nicotine dependence- Primary Nicotine dependence, cigarettes, uncomplicated [facility]* Diagnosis Paroxysmal A-fib (CMS/HCC) (HCC)- Primary [...] disorder in remission [facility]* Diagnosis Paroxysmal A-fib (CMS/HCC) (HCC)- Primary [...] chronic bronchitis type (HCC) ESRD on hemodialysis ([facility]/HCC) (HCC) documented in this encounter [facility]* Diagnosis Paroxysmal A-fib (CMS/HCC) (HCC)- [...] Anemia, unspecified type [facility] Diagnosis Paroxysmal A-fib (CMS/HCC) (HCC)- Primary Nonrheumatic aortic valve stenosis Primary hypertension Unspecified essential hypertension ESRD on hemodialysis ([facility]/HCC) (HCC) Calcification of abdominal aorta (HCC) Tobacco [...] of abdominal surgery documented in this encounter [facility]* Diagnosis Paroxysmal A-fib (CMS/HCC) (HCC)- [...] hemodialysis (CMS/HCC) (HCC) documented in this encounter [facility]* Diagnosis Paroxysmal A-fib (CMS/HCC) (HCC)- [...] (HCC) S/P AVR [facility]* Diagnosis Paroxysmal A-fib (CMS/HCC) (HCC)- [...] flutter (HCC)- Primary documented in this encounter [facility]* Diagnosis Paroxysmal A-fib (CMS/HCC) (HCC)- [...] of abdominal surgery documented in this encounter [facility]* Diagnosis Paroxysmal A-fib (CMS/HCC) (HCC)- [...] of abdominal surgery documented in this encounter [facility]* Diagnosis Paroxysmal A-fib (CMS/HCC) (HCC)- [...] of abdominal surgery documented in this encounter [facility]* Diagnosis Paroxysmal A-fib (CMS/HCC) (HCC)- [...] aortic valve stenosis Atrial flutter, unspecified type ([facility]) Pulmonary embolism, other, unspecified chronicity, unspecified whether acute cor pulmonale present ([facility]) documented in this encounter [facility]* Diagnosis Paroxysmal A-fib (CMS/HCC) (HCC)- [...] aortic valve stenosis [facility]* Diagnosis Paroxysmal A-fib (CMS/HCC) (HCC)- [...] respiratory syncytial virus (RSV) ESRD on hemodialysis ([facility]) ([facility]) Pulmonary embolism, other, unspecified chronicity, unspecified whether acute cor pulmonale present (HCC) Nonrheumatic aortic valve stenosis [facility]* Diagnosis Paroxysmal A-fib (CMS/HCC) (HCC)- Primary Nonrheumatic aortic valve stenosis Primary hypertension Unspecified essential hypertension ESRD on hemodialysis ([facility]) (HCC) Calcification of abdominal aorta (HCC) Tobacco abuse Tobacco use disorder Nonrheumatic aortic valve stenosis- Primary Paroxysmal A-fib (CMS/HCC) (HCC) Primary hypertension Unspecified essential hypertension Calcification of abdominal aorta (HCC) Tobacco abuse Tobacco use disorder ESRD on hemodialysis ([facility]) (HCC) Paroxysmal A-fib (CMS/HCC) (HCC)- Primary Nonrheumatic [...] Tracheostomy status Acute respiratory failure with hypoxia ([facility]) [J96.01] [facility] of [facility] surgery documented in this encounter [facility]* Diagnosis Paroxysmal A-fib (CMS/HCC) (HCC)- [...] region, unstageable (HCC) documented in this encounter [facility]* Diagnosis Paroxysmal A-fib (CMS/HCC) (HCC)- [...] not elsewhere classified documented in this encounter [facility]* Diagnosis Paroxysmal A-fib (CMS/HCC) (HCC)- [...] osteomyelitis (CMS/HCC) (HCC) [facility]* Diagnosis Paroxysmal A-fib (CMS/HCC) (HCC)- [...] failure with hypoxia (HCC) [J96.01]- Primary Tracheostomy care ([facility]) [Z43.0] Attention to tracheostomy Pulmonary embolism, other, unspecified chronicity, unspecified whether acute cor pulmonale present ([facility]) [facility]* Diagnosis Paroxysmal A-fib (CMS/HCC) (HCC)- [...] Primary 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] Tracheostomy status Pulmonary embolism, other, unspecified [...] Decubitus ulcer of sacral region, unstageable (HCC) longterm (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 documented in this encounter [facility]* Diagnosis Paroxysmal A-fib (CMS/HCC) (HCC)- [...] in remission Acute respiratory failure with hypoxia ([facility]) [J96.01]- Primary 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[facility]) [Z93.0] Tracheostomy status Pulmonary embolism, other, unspecified chronicity, unspecified whether acute cor pulmonale present ([facility]) documented in this encounter [facility]* Diagnosis Paroxysmal A-fib (CMS/HCC) (HCC)- [...] Tracheostomy status Acute respiratory failure with hypoxia ([facility]) [J96.01] Leg DVT (deep venous thromboembolism), acute, left (HCC) Pulmonary embolism, unspecified chronicity, unspecified pulmonary embolism type, unspecified whether acute cor pulmonale present ([facility]) S/P AVR documented in this encounter [facility]* Diagnosis Paroxysmal A-fib (CMS/HCC) (HCC)- [...] Leukocytosis, unspecified type documented [facility] [...] Staphylococcus aureus (MSSA), unspecified part of lung ([facility]) Acute respiratory failure with hypoxia ([facility]) [J96.01] Nonrheumatic aortic valve stenosis Pulmonary embolism, unspecified chronicity, unspecified pulmonary embolism type, unspecified whether acute cor pulmonale present ([facility]) [facility] [...] Tracheostomy status ESRD on hemodialysis (CMS/HCC) (HCC) longterm (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 Decubitus ulcer of sacral region, unstageable (HCC) Sacral osteomyelitis (CMS/HCC) (HCC) [facility]* Diagnosis Paroxysmal A-fib (CMS/HCC) (HCC)- [...] in remission Acute respiratory failure with hypoxia ([facility]) [J96.01]- Primary RSV (acute bronchiolitis due to respiratory syncytial virus) Acute bronchiolitis due to respiratory syncytial virus (RSV) 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[facility]) Tracheostomy status Leg DVT (deep venous thromboembolism), acute, left ([facility]) Pulmonary embolism, unspecified chronicity, unspecified pulmonary embolism type, unspecified whether acute cor pulmonale present ([facility]) S/P AVR [facility]* Diagnosis Paroxysmal A-fib (CMS/HCC) (HCC)- [...] Decubitus ulcer of sacral region, unstageable (HCC) 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 [facility] noteNo assessment information [facility] Work Phone: Evaluation note* Diagnosis Paroxysmal [...] (HCC) Nutritional marasmus documented [facility]* [...] remission 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HCC)- Primary Tracheostomy status Tracheostomy complication, unspecified complication type (HCC) Acute respiratory failure with hypoxia (HCC) [J96.01] documented in this encounter [facility] Discharge instructions* Instructions* Fabiola Huitron RN - [...] or dog food bags, or a vacuum paper cleaner. Your dressing will be removed at [...] call and ask for the Interventional Radiologist manufacturing production technician. Where can you learn more? Go to [email or web address] and sign in to your [employer] account. Enter P616 in the Search Health Information box to learn more about Hemodialysis Access: What to Expect at Home. If you do not have an account, please click on the Sign Up Now link. Current as of: August 12, 2016 Content Version: 11.2 [id number] [employer]. Care instructions adapted under license by [employer]. If youhave questions about a medical condition or this instruction, always ask your healthcare professional. [employer] disclaims any warranty or liability for your use of this information. documented in this encounterSUMMA Work Phone: Reason for referral (narrative)* Outpatient Procedure (Routine) - Authorized Specialty Diagnoses / Procedures Referred By Manny dodd Referred To Contact [facility] Diagnoses Acute blood loss anemia Rectal bleeding Procedures COLONOSCOPY DIAGNOSTIC COLONOSCOPY FLX DX W/COLLJ SPEC WHEN PFRMD Inocencio, Rudy Vinson MD [address] [address] [facility] Disease [address] [place] [address] Referral ID Status Reason Start Date Expiration Date Visits Requested Visits Authorized [id number] Authorized Auto-Generat ed Referral 12/25/2021 12/25/2022 1 1 [facility] for referral (narrative)* Outpatient Procedure (Routine) - Authorized Specialty Diagnoses / Procedures Referred By Contac t Referred To Contact [facility] Diagnoses Other iron deficiency anemia Rectal bleeding Procedures COLONOSCOPY DIAGNOSTIC COLONOSCOPY FLX DX W/COLLJ SPEC WHEN PFRMD Rudy Painter MD [address] [address] [facility] [address] [place] [address] Referral ID Status Reason Start Date Expiration Date Visits Requested Visits Authorized [id number] Authorized Auto-Generat ed Referral 12/30/2021 12/30/2022 1 [facility] Consultation (Routine) - Pending Review Specialty Diagnoses / Procedures Referred By Contac t Referred To Contact Wound Care Diagnoses Skin sore Procedures WI OFFICE/OUTPATIENT NEW HIGH MDM 60-74 MINUTES Jese Frank MD [address] [place] [address] [facility] Op Wnd Ostomy [address] [place] [address] Referral ID Status Reason Start Date Expiration Date Visits Requested Visits Authorized [id number] Pending Review Specialty Services Required 05/01/2023 04/30/2024 1 1 [facility] for referral (narrative)No reason for referral information [facility] Work Phone: Reason for visit Narrative* Auth/Cert (Routine) Specialty Diagnoses / Procedures Referred By Contac t Referred To Contact Diagnoses Atrial flutter, unspecified type (HCC) Procedures . Ramón Romano MD [address] [place] [address] Phone: tel: fax: [facility] ED [address] [place] [address] Phone: tel: Referral ID Status Reason Start Date Expiration Date Visits Re quested Visits Authorized [id number] 1 1 [facility] Health Assessments Diagnosis Chronic kidney disease, stage [...] Documents on File Type Date Recorded Patient Floor Representative Expl anation Advance Directive(s) 11/22/2020 11:20 AM Advance Directive(s) 06/12/2020 8:15 AM Advance Directive(s) 03/20/2020 7:16 AM Documents on File Type Date Recorded Patient Floor Representative Expl anation Advance Directive(s) 11/22/2020 11:20 AM Advance Directive(s) 06/12/2020 8:15 AM Advance Directive(s) 03/20/2020 7:16 AM Documents on File Type Date Recorded Patient Floor Representative Expl anation Power of Checkman 02/14/2023 1:37 PM Advance Directives and Livin g Will 02/14/2023 1:37 PM Documents on File Type Date Recorded Patient Floor Representative Expl anation Power of Checkman 02/14/2023 1:37 PM Advance Directives and Livin [...] Documents on File Type Date Recorded Patient Floor Representative Expl anation Advance Directives and Livin g Will 10/03/2024 11:27 AM Power of Checkman 02/14/2023 1:37 PM Advance Directives and Livin g Will 02/14/2023 1:37 PM Date Activated Date Inactivated Comments 10/03/2024 6:19 PM Date Activated Date Inactivated Comments 08/17/2023 12:04 AM 08/17/2023 5:18 PM Documents on File Type Date Recorded Patient Floor Representative Expl anation Advance Directives and Livin g Will 10/03/2024 11:27 AM Power of Checkman 02/14/2023 1:37 PM Advance Directives and Livin [...] Documents on File Type Date Recorded Patient Floor Representative Expl anation Power of Checkman 01/24/2025 12:29 PM Advance Directives and Livin g Will 10/03/2024 11:27 AM Power of Checkman 02/14/2023 1:37 PM Advance Directives and Livin [...] Omar Lillian Child Health Care Agent [facility] Agent Documents on File Type Date Recorded Patient Floor Representative Expl anation Power of Checkman 01/24/2025 12:29 PM Advance Directives and Livin g Will 10/03/2024 11:27 AM Power of Checkman 02/14/2023 1:37 PM Advance Directives and Livin [...] Omar Lillian Child Health Care Agent [facility] Care Agent Healthcare Agents on File Name Relationship Healthcare Agent Relationshi p Communication Omar Lillian Child Health Care Agent Toma [facility] Alternate Health Care Agent Healthcare Agents on File Name Relationship Healthcare Agent Relationshi p Communication Omar Lillian Child Health Care Agent Toma [facility] Alternate Health Care Agent Healthcare Agents on [...] [facility] Alternate Health Care Agent Summary Purpose Family [...] CT lung screening low dose Fransisco Pineda, LOG HANDLING EQUIPMENT OPERATOR [address] [place] [address] Referral ID Status Reason Start Date Expiration Date V isits Requested Visits Authorized [id number] Authorized 09/07/2023 09/06/2024 1 1 Chief Complaint [...] any alcohol or drug abuse patient.[facility] Center[facility] the event this information is protected by the Federal Confidentiality of Alcohol and Drug Abuse Patient Records regulations: The Federal rules restrict any use of the information to criminally investigate or prosecute any alcohol or drug abuse patient.[facility] CenterIn the event this information is protected by the Federal Confidentiality of Alcohol and Drug Abuse Patient Records regulations: The Federal rules restrict any use of the information to criminally investigate or prosecute any alcohol or drug abuse patient.[facility] Center[facility] the event this information is protected by the Federal Confidentiality of Alcohol and Drug Abuse Patient Records regulations: The Federal rules restrict any use of the information to criminally investigate or prosecute any alcohol or drug abuse patient.[facility] CenterIn the event this information is protected by the Federal Confidentiality of Alcohol and Drug Abuse Patient Records regulations: The Federal rules restrict any use of the information to criminally investigate or prosecute any alcohol or drug abuse patient.[facility] CenterIn the event this information is protected by the Federal Confidentiality of Alcohol and Drug Abuse Patient Records regulations: The Federal rules restrict any use of the information to criminally investigate or prosecute any alcohol or drug abuse patient.[facility] CenterIn the event this information is protected by the Federal Confidentiality of Alcohol and Drug Abuse Patient Records regulations: The Federal rules restrict any use of the information to criminally investigate or prosecute any alcohol or drug abuse patient.[facility] CenterIn the event this information is protected by the Federal Confidentiality of Alcohol and Drug Abuse Patient Records regulations: The Federal rules restrict any use of the information to criminally investigate or prosecute any alcohol or drug abuse patient.[facility] (unrecognized sect ion and content) No Status Records FoundNo Status Records FoundNo Status Records FoundNo Status Records FoundNo Status Records FoundNo Status Records Found INFORMATION SOURCE (unrecogn ized section and content) DATE CREATED AUTHOR 11/26/2020 [facility] DATE CREATED AUTHOR AUTHOR'S ORGANIZ ATION 09/18/2021 [facility] DATE CREATED AUTHOR AUTHOR'S ORGANIZ ATION 12/18/2022 [facility] DATE CREATED AUTHOR AUTHOR'S ORGANIZ ATION 04/16/2024 [facility] DATE CREATED AUTHOR AUTHOR'S ORGANIZ ATION 03/05/2025 [facility] DATE CREATED AUTHOR AUTHOR'S ORGANIZ ATION 03/07/2025 [facility] Continuous Active and Recently Administ ered Medications (unrecognized section and content) Medication Order 09/13/2021 09/14/2021 09/15/2021 0.9 % sodium chloride infusion IntraVENous, at 50 mL/hr, CONTINUOUS, Starting on Wed09/15/21 at 0945, Pre-op (day of surgery) 0955 ([facility] ider: Marjorie Menjivar RN) PRN Medication Order [...] sodium chloride 0.9 % 100 mL IVPB (Add-[place]) 3,000 mg, IntraVENous, at 200 mL/hr, Administer over 30 Minutes, Every 24 hours, First dose on Wed01/25/25 at 1700, ADD-[place] bag, Suspected Indication (Select all that apply): Bone and Joint Infection 183 (New Bag - Provider: Miriam Reza, SWEETIE)2012 (Stopped - Provider: Casandra Rose RN) 1645 (New Bag - Provider: Angella Ley RN)1715 (Due: Stopped - Provider: Angella Ley RN) 1700 (Canceled Entry - Provider: Automatic Discharge Provider - Comment: Automatically canceled at discontinue of medication order) ampicillin-sulbactam (Unasyn) 3,000 mg in sodium chloride 0.9 % 100 mL IVPB (Add-[place]) (CANCELED) 3,000 mg, IntraVENous, at 200 mL/hr, Administer over 30 Minutes, Every 24 hours, First dose on Wed02/01/25 at 1030, For 13 days, ADD-[place] bag, Suspected Indication (Select all that apply): [...] order) 0815 (Medication Applied - Provider: Kristine Donato, SWEETIE)1603 (Due: Medication Removed - Provider: Automatic Discharge Provider - Comment: Time automatically adjusted from order being discontinued) metoprolol tartrate (Lopressor) tablet 25 mg 25 mg, Per G Tube, 2 times daily, First dose (after last modification) on Wed01/29/25 at 2100 1038 (Given - Provider: Miriam Reza, SWEETIE)2023 (Given - Provider: Casandra Rose, SWEETIE) 152 (Not Given - Provider: Angella Ley RN - Reason: Other - Comment: dialysis)2041 (Given - Provider: Leilani Jaimes RN) 0815 (Given - Provider: Kristine Donato RN) midodrine (Proamatine) tablet 10 mg 10 mg, Oral, 2 times daily, First dose on Wed01/26/25 at 2100 1038 (Given - Provider: Miriam Reza RN)2023 (Given - Provider: Casandra Rose, SWEETIE) 1529 [...] Jun Borrero MD) lidocaine-EPINEPHrine (Xylocaine W/EPI) 1 %-1:[id number] injection (COMPLETED) As needed, Starting on Wed01/30/25 [...] pupils, Starting on Wed01/19/25 at 0614, +++notify manufacturing production technician provider if used+++ oxyCODONE (Roxicodone) immediate release [...] and flush line post transfusion, Starting on Wed01/25/25 at 0348, For 1 dose, For use [...] Sinclair RN) 0832 (Given - Provider: Ochoa Johnson RN) 0913 (Given - Provider: Tyson Freeman, SWEETIE) dextrose 50 % solution 50 mL (COMPLETED) 50 mL, IntraVENous, Once, On Wed03/05/25 at 0500, For 1 dose 0542 (Given - Provider: Rosio Bey RN) insulin regular (HumuLIN R,NovoLIN R) injection 10 [...] Ochoa Johnson, SWEETIE)2123 (Given - Provider: Rosio Bey RN) 0913 (Given - Provider: Tyson Freeman, SWEETIE) [...] Ochoa Johnson RN)1141 (Stopped - Provider: Liv Grimaldo, SWEETIE)1611 (New Bag - Provider: Liv Grimaldo, RN)2115 (Stopped - Provider: Rosio Bey, SWEETIE)2125 (New Bag - Provider: Rosio Bey RN) 0025 (Stopped - Provider: Rosio Bey, SWEETIE)0438 (New Bag - Provider: Rsoio Bey, SWEETIE)0739 (Stopped - Provider: Tyson Freeman, SWEETIE)1034 (New Bag - Provider: Tyson Freeman, SWEETIE)1425 (Stopped - Provider: Tyson Freeman, SWEETIE)1600 (Canceled Entry - Provider: Automatic Discharge Provider - Comment: Automatically canceled at discontinue of medication order) QUEtiapine (SEROquel) tablet 25 mg 25 mg, Oral, Nightly, First dose (after last modification) on 02/24/25 at 2200 2120 (Given - Provider: Rudolph Najera RN) 2123 (Given - Provider: Rosio Bey RN) sevelamer carbonate (Renvela) tablet 800 mg 800 [...] Ave Arnold RN) 0833 (Given - Provider: cOhoa Johnson RN) 0913 (Given - Provider: Tyson [...] Provider: Rudolph Najera RN)0727 (Handoff - Provider: Ochao Johnson, SWEETIE)1032 (Handoff - Provider: Ochoa Johnson, SWEETIE)1920 (Handoff [...] sedation for opioid reversal - MUST notify manufacturing production technician provider immediately after first dose, may give [...] Care Teams (unrecognized sec tion and content) Manager Hvac Relationship Specialty Start Date End Date Daryn Loomis MD [address] [place] [address] [place] [phone] PCP - General Family Medicine 12/18/20 Manager Hvac Relationship Specialty Start Date End Date Candido Starr MD [address] [address] Nephrology 02/22/20 Manager Hvac Relationship Specialty Start Date End Date Candido Starr MD [address] [address] Nephrology 02/22/20 Manager Hvac Relationship Specialty Start Date End Date Candido Starr MD [address] [address] Nephrology 02/22/20 Manager Hvac Relationship Specialty Start Date End Date Daryn Loomis MD [facility] [place] [address] PCP - General 12/18/20 Manager Hvac Relationship Specialty Start Date End Date Daryn Loomis MD [facility] [place] [address] PCP - General 12/18/20 Manager Hvac Relationship Specialty Start Date End Date Daryn Loomis MD [address] [place], [place] [address] [address] PCP - General 12/18/20 Manager Hvac Relationship Specialty Start Date End Date Daryn Loomis MD [address] [place], [place] [address] [address] PCP - General 12/18/20 Manager Hvac Relationship Specialty Start Date End Date Daryn Loomis MD [address] [place], [place] [address] [address] PCP - General 12/18/20 Manager Hvac Relationship Specialty Start Date End Date Daryn Loomis MD [address] [place], [place] [address] [address] PCP - General 12/18/20 Manager Hvac Relationship Specialty Start Date End Date Daryn Loomis MD [address] [place], [place] [address] [address] PCP - General 12/18/20 Manager Hvac Relationship Specialty Start Date End Date Daryn Loomis MD [address] [place], [place] [address] [address] PCP - General 12/18/20 Manager Hvac Relationship Specialty Start Date End Date Candido Starr MD [address] [place] [address] Nephrology 02/22/20 Manager Hvac Relationship Specialty Start Date End Date Candido Starr MD [address] [place] [phone] Nephrology 02/22/20 Manager Hvac Relationship Specialty Start Date End Date Daryn Loomis MD [address] [place] [address] PCP - General 12/18/20 Manager Hvac Relationship Specialty Start Date End Date Emely Leilani [address] [place] [address] PCP - General Family Medicine 10/03/24 Manager Hvac Relationship Specialty Start Date End Date EmelyLeilani gore [address] [place] [address] PCP - General Family Medicine 10/03/24 Manager Hvac Relationship Specialty Start Date End Date Emely Leilani [address] [place] [address] PCP - General Family Medicine 10/03/24 Manager Hvac Relationship Specialty Start Date End Date Emely Leilani [address] [place] [address] PCP - General Family Medicine 10/03/24 Manager Hvac Relationship Specialty Start Date End Date Leilani Troncoso [address], [phone] PCP - General Family Medicine 10/03/24 Manager Hvac Relationship Specialty Start Date End Date Leilani Troncoso [address], [phone] PCP - General Family Medicine 10/03/24 Manager Hvac Relationship Specialty Start Date End Date Leilani Troncoso [address], [phone] PCP - General Family Medicine 10/03/24 Manager Hvac Relationship Specialty Start Date End Date Leilani Troncoso [address], [phone] PCP - General Family Medicine 10/03/24 Manager Hvac Relationship Specialty Start Date End Date Leilani Troncoso [address], [phone] PCP - General Family Medicine 10/03/24 Manager Hvac Relationship Specialty Start Date End Date Leilani Troncoso [address], [phone] PCP - General Family Medicine 10/03/24 Manager Hvac Relationship Specialty Start Date End Date Leilani Troncoso [address], [id number] PCP - General Family Medicine 10/03/24 Manager Hvac Relationship Specialty Start Date End Date Leilani Troncoso [address] [place] [address] PCP - General Family Medicine 10/03/24 Manager Hvac Relationship Specialty Start Date End Date Leilani Troncoso [address] [place] [address] PCP - General Family Medicine 10/03/24 Manager Hvac Relationship Specialty Start Date End Date Leilani Troncoso [address] [place] [address] PCP - General Family Medicine 10/03/24 Manager Hvac Relationship Specialty Start Date End Date Leilani Troncoso [address], [phone] PCP - General Family Medicine 10/03/24 Manager Hvac Relationship Specialty Start Date End Date Leilani Troncoso [address] [place] [address] PCP - General Family Medicine 10/03/24 Manager Hvac Relationship Specialty Start Date End Date Leilani Troncoso [address], [phone] PCP - General Family Medicine 10/03/24 Manager Hvac Relationship Specialty Start Date End Date Leilani Troncoso [address] [place] [address] PCP - General Family Medicine 10/03/24 Manager Hvac Relationship Specialty Start Date End Date Leilani Troncoso [address] [place] [address] PCP - General Family Medicine 10/03/24 Manager Hvac Relationship Specialty Start Date End Date Leilani Troncoso [address] [place] [address] PCP - General Family Medicine 10/03/24 Manager Hvac Relationship Specialty Start Date End Date Leilani Troncoso [address] [place] [address] PCP - General Family Medicine 10/03/24 Manager Hvac Relationship Specialty Start Date End Date Leilani Troncoso [address], [phone] PCP - General Family Medicine 10/03/24 Manager Hvac Relationship Specialty Start Date End Date Leilani Troncoso [address] [place] [address] PCP - General Family Medicine 10/03/24 Manager Hvac Relationship Specialty Start Date End Date Leilani Troncoso [address] [place] [address] PCP - General Family Medicine 10/03/24 Manager Hvac Relationship Specialty Start Date End Date Leilani Troncoso [address] [place] [phone] PCP - General Family Medicine 10/03/24 Manager Hvac Relationship Specialty Start Date End Date Leilani Troncoso [address] [place] [phone] PCP - General Family Medicine 10/03/24 Team [...] Attending Provider Active Start: February 20, 2025 Manager Hvac Relationship Specialty Start Date End Date Leilani Troncoso [address] [place] [address] PCP - General Family Medicine 10/03/24 Manager Hvac Relationship Specialty Start Date End Date Leilani Troncoso [address] [place] [phone] PCP - General Family Medicine 10/03/24 Manager Hvac Relationship Specialty Start Date End Date Leilani Troncoso [address] [place] [address] PCP - General Family Medicine 10/03/24 Manager Hvac Relationship Specialty Start Date End Date Leilani Troncoso [address] [place] [address] PCP - General Family Medicine 10/03/24 Manager Hvac Relationship Specialty Start Date End Date Leilani Troncoso [address] [place] [phone] PCP - General Family Medicine 10/03/24 Manager Hvac Relationship Specialty Start Date End Date Leilani Troncoso [address] [place] [address] PCP - General Family Medicine 10/03/24 [...] levels. Specialty Diagnoses / Procedures Referred By Manny dodd Referred To Contact Diagnoses New onset a-fib (CMS/HCC) ([facility]) Procedures . Earlene Irving MD [address] [facility] [address] [place] [address] [facility] Emergency Dept [facility] [place] [address] Referral ID Status Reason Start Date Expiration Date Visits Re quested Visits Authorized [id number] 1 Reason Onset Date Comments Cancelled [...] Change Specialty Diagnoses / Procedures Referred By Manny t Referred To Contact Diagnoses Complication of tracheostomy (CMS/HCC) (HCC) Procedures . Bruce Nguyen MD [address] [place] [address] Phone: tel: fax: [facility] Medical Intensive Care Unit MICU T3 [address] [place] [address] Phone: tel: Referral ID Status Reason Start Date Expiration Date Visits Re quested Visits Authorized [id number] 1 1 Reason Onset Date Comments Anticoagulation [...] was bright red and it stopped just OFFICE ADMINISTRATION INSTRUCTOR when in transport. Specialty Diagnoses / Procedures Referred By Contjayant t Referred To Contact Diagnoses Hemoptysis Procedures . Bettye Pierre MD [address] [place] [address] Phone: tel: fax: [facility] Trauma Neuro Progressive Care Unit PCU [address] [place] [address] Phone: tel: Referral ID Status Reason Start Date Expiration Date Visits Re quested Visits Authorized [id number] 1 1 Reason Onset Date Comments Appointment 02/23/2025 Goals (unrecognized section and content) Goals may [...] BE BASED ON THE PRIMARY CLINICAL RECORDS. [employer] provides no warranty or guarantee of the accuracy or completeness of information in this document.
[2025-03-09 08:08] LABS: Potassium 4.1 mmol/L (3.3-5.1)
== END ==
LOC: OLS.SANC 05:00
PROVIDERS: Visit Provider Internal Medicine
DX: I48.91 Unspecified atrial fibrillation (principal); D64.9 Anemia, unspecified; I10 Essential (primary) hypertension; Z79.01 Long term (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 anticoagulants
CPT/HCPCS: 36415; 84132

== ENCOUNTER → 2025-03-12 | Outpatient (REF) | payer MEDICARE, SELFPAY ==
--- OUTSIDE RECORDS SUMMARY | 2025-03-12 04:36 | XMS RPT_ITS | CCD ---
Author Organization [facility] Care Team Providers Care Vice President Consulting Services Name Role Phone Candido Starr Unavailable Unavailable Primary Care Provider Unavailrickey Loomis MD, Daryn Cali Primary Care Provider [phone] Unavailable Primary Care Provider UnavailCandido Hardy MD Unavailable Daryn Loomis MD Primary Care Provider [phone] Candido Starr MD Unavailable AbaJamey ramosnah Primary Care Provider AbaJamey ramosnah Primary Care Provider [phone] Kayley Melendrez MD Attending Provider Unava ilable KatJayesh Bullard Attending Provider Unavailab Kayley Cm MD Referring Provider Unava ilable Mukkamalla OLS, Kayley Attending Unavail able Mukkamalla OLS, Kayley Attending Unavail able Katsaros Jayesh ALBA Attending Unavailable Mukkamalla OLS, Kayley Attending Unavail able Mukkamalla OLS, Kayley Attending Unavail able Mukkamalla OLS, Kayley Referring Unavail able KatsaJayesh Bee Attending Unavailable Muk[place]alla OLS, Kayley Attending Unavail able Mukkamalla OLS, Kayley Attending Unavail able Mukkamalla OLS, Kayley Attending Unavail able MIKALA DAY Attending Unavailable ABA, LEILANI Primary Care Unavailable OSIRIS TERRELL Attending Unavailable ABA, LEILANI Primary Care Unavailable MONTEMAYOR, LUCIANO Referring Unavailable ABA, LEILANI Primary Care Unavailable FRANK, JESE Referring Unavailable ABA, LEILANI Primary Care Unavailable MIKALA DAY Attending Unavailable MIKALA DAY Referring Unavailable ABA, LEILANI Primary Care Unavailable ABA, LEILANI Primary Care Unavailable LUTTMANN, QUIANA Admitting Unavailable JUNE CHAPARRO Consulting Unavailable BARB DWAKINS Attending Unavailrickey borja [facility] Primary [facility] Unavailable CINDY PATEL Consulting Unavailable MONTEMAYORLUCIANO Admitting Unavailable LUCIANO MONTEMAYOR Attending Unavailable ELDON ALBA Consulting Unavailable TIFFANIE VILLEGAS Consulting Unavailable DARYN SANTACRUZ Consulting Unavailable CALI ARREDONDO Consulting Unavailable [facility] Care Unavailable BETTYE PIERRE Admitting Unavailable WELLINGTON NICOLE Consulting Unavailable ANTHONY HURTADO Attending Unavailable JESE FRANK Referring Unavailable [facility] Unavailable MONTEMAYOR, LUCIANO Referring Unavailable [facility] Care Unavailable JR SHAH Attending Unavailable DARYN LOOMIS [facility] Unavailable Allergies Allergy Classification Reported Allergen(s) Allergy Type Date of Onset Reaction(s) Facility (11 sources) Lisinopril Drug Allergy 0 Swelling [facility] Work Phone: (20 sources) Lisinopril Allergy to substance 2 Swelling, Angioedema [facility] Medications Current Medications Medication Drug Class(es) [...] nce daily. Take 2 tablets by mo uth once daily. amoxicillin 500 mg / clavulanate 125 mg oral tablet (3 sources) Penicillin-class Antibacterial Start: 025 take 1 tablet by mouth once daily [...] tablet (20 sources) Atypical Antipsychotic Start: 02-22-20 25 End: 03-31-20 25 take 1 tablet by mouth once daily [...] MG tablet Indications: ESRD on hemodialysis (CMS/HCC) ([facility]) Take 1 tablet (800 mg) by [...] with meals. Take 3 tablets by mo ut three times daily with meals. sodium chloride [...] Inhibitor Antibacterial, Sulfonamide Antimicrobial Start: 023 End: take 1 tablet by mouth once [...] tablet 650 mg 20 ml albumin human, prison 250 mg/ml injection (1 source) Human Serum [...] sodium chloride 0.9 % 100 mL IVPB (Add-Arcanum) (2 sources) Start: 02-01-2025 End: 02-01-2025 anidulafungin [...] End: 01-22-2025 Start: 01-22-2025 End: 01-22-2025 B Rwmdsdt-U-Qrdky Acid (NEPHRO-NATO) 0.8 MG TABS (1 source) Start: 10-14-2020 take 1 tablet by mouth once daily B Hjwuatt-I-Vzuje Acid (NEPHRO-NATO) 0.8 MG TABS TAKE 1 [...] at 1024, Anesthesia Intraprocedure epoetin rowan-epbx (Retacrit) 08790 UNIT/ML injection (20 sources) Start: 12-04-2024 End: 02-21-2025 inject 0.79 mL by subcutaneous injection every week epoetin rowan-epbx (Retacrit) 98840 UNIT/ML injection Indications: ESRD on Dialysis Inject 0.79 mL (7,900 Units) under the skin 1 (one) time per week. 12/04/2024 02/21/2025 Discontinued (Discontinued by another clinician) Start: 12-04-2024 inject 0.79 mL by bangura bcutaneous injection every week epoetin rowan-epbx (Retacrit) 25152 UNIT/ML injection Indications: ESRD on Dialysis Inject [...] 1 each (1 source) Start: 05-01-2023 End: 08-05-2023 gelatin absorbable (Gelfoam) sponge 1 each glucagon [...] at 1024, Anesthesia Intraprocedure polyethylene glycol 3350 35777 mg powder for oral solution (4 sources) [...] sodium chloride 5860 mg / sodium sulfate 24898 mg powder for oral solution (6 sources) [...] 1105, Anesthesia Intraprocedure 25 ml protamine sulfate (prison) 10 mg/ml injection (1 source) Start: 10-12-2024 [...] sources) Long-term current use of antibiotic; Translations: [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] Onset: 01-12-2025 01-12-2025 Episodic Other aftercare (1 source) [facility] (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 anticoagulants; Translations: [termite control servicer (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 anticoagulants] Onset: 03-09-2025 Episodic Other aftercare (1 source) Other 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 renewal inspector (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) drug therapy; Translations: [Other jail (current) drug therapy] Onset: 02-28-2025 Episodic Other aftercare (1 source) [facility] (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; Translations: [[facility] (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] Onset: 01-12-2025 Episodic [...] [Atherosclerosis of aorta] Onset: 10-08-2023 10-08-2023 Chronic Residual codes; unclassified (2 sources) Immunization not carried out because of patient refusal; Translations: [Immunization not carried out because of patient refusal] Onset: 10-08-2023 Episodic Respiratory failure; insufficiency; arrest (adult) (3 sources) Dependence on ventilator; Translations: [Dependence on respirator [ventilator] status] 11-29-2024 Chronic Screening and history of mental health and [...] not elsewhere classified] Onset: 10-03-2024 11-28-2024 Episodic Pneumonia (except that caused by tuberculosis or sexually transmitted disease) (20 sources) Pneumonia due to methicillin susceptible Staphylococcus aureus; Translations: [Pneumonia due to Methicillin susceptible Staphylococcus aureus] Onset: 10-03-2024 01-01-2025 Episodic Pulmonary heart disease (20 sources) Pulmonary embolism; Translations: [Other pulmonary embolism without acute cor pulmonale] Onset: 10-03-2024 Resolved: 12-14-2024 11-01-2024 Episodic Residual codes; unclassified (20 sources) Tobacco [...] [Other specified health status] Onset: 10-08-2023 Episodic Respiratory failure; insufficiency; arrest (adult) (20 sources) Acute respiratory failure; Translations: [Acute respiratory failure, unspecified whether with hypoxia or hypercapnia] Onset: 10-03-2024 11-13-2024 Episodic Unclassified (4 sources) Pressure injury of sacral region, stage 4 (HCC) 02-01-2025 Unclassified (1 source) Other recurrent and persistent immunoglobulin A nephropathy; Translations: [Other recurrent and persistent immunoglobulin A nephropathy] Onset: 02-20-2025 Results Test Name Value Interpretation Reference Range Facility Potassiumon 03-09-2025 Potassium [Moles/Vol] 4.1 mmol/L Normal 3.3-5.1 [facility] Comment on above: Order Comment: 413-2 Performed By: #### L 9200.0000 #### [facility] [address] [place], [address] Potassium measurement (mass/ volume)Ordered By: Jayesh Stubbs on 03-09-2025 Potassium (Unsp spec) [Mass/Vol] 4.1 mmol/L 3.3-5.1 [facility] 36on 03-08-2025 36 2nd attempt called and spoke to the Alyssa the Nurse for the patient at the facility he lives at. She states Sabino is the person who schedules the appointments and she is on vacation and wont be back till next Wednesday. I will try again next wednesday Progress Noteon 03-08-2025 Progress Note [facility] 36on 03-06-2025 36 Pt DC to [facility] [id number] 03-05-2025 [id number] Auth is now pending with [facility] for [facility]. Auth ID: [id number] . The insurance needs PT and OT notes- as PT note yesterday incomplete , they are both requested . [id number] Discharge med list transmitted to [facility] via Careport per [facility] request. [id number] APTTon 03-05-2025 aPTT Coag (Bld) [Time] 37.6 s High 20.0-30.5 [facility] Comment on above: Result Comment: ARPAN Kaplan COMMENTS:NOTE: The therapeutic time for Heparin anticoagulation, based on Xa activity inhibition, is an APTT of 46-80 seconds. Performed By: #### L AB325, [id number] ####Blow Pit Operator: DOMENICA JARA ([phone])[facility])[address] [place] [address] BASIC METABOLIC PANELon 06-0 Anion gap [Moles/Vol] 8 mmol/L Normal 3-13 [facility] Comment on above: Performed By: #### L AB15 ####Blow Pit Operator: DOMENICA JARA ([id number])[facility] ([facility])[address] [place] [address] Calcium [Mass/Vol] 9.7 mg/dL Normal 8.4-10.2 [facility] Comment on above: Performed By: #### L AB15 ####Blow Pit Operator: DOMENICA JARA ([id number])[facility])[address] [place] [address] Chloride [Moles/Vol] 102 mmol/L Normal 98-107 [facility] Comment on above: Performed By: #### L AB15 ####Blow Pit Operator: DOMENICA JARA ([id number])[facility] ([facility])[address] [place] [address] CO2 [Moles/Vol] 26 mmol/L Normal 22-29 [facility] Comment on above: Performed By: #### L AB15 ####Blow Pit Operator: DOMENICA JARA ([phone])[facility])[address] [place] [address] Creatinine [Mass/Vol] 3.10 mg/dL High 0.72-1.25 [facility] Comment on above: Performed By: #### L AB15 ####Blow Pit Operator: DOMENICA JARA ([id number])[facility])[address] [place] [address] GLOMERULAR FILTRATION RATE ML/MIN/1.73 SQ M.PREDICTED 22.3 mL/min/1.73m*2 Low >60.0 [facility] Comment on above: Result Comment: Calc ulation based on the Chronic Kidney Disease Epidemiology Collaboration (CKD-EPI) equation refit without adjustment for race Performed By: #### L AB15 ####Blow Pit Operator: DOMENICA JARA ([id number])[facility])[address] [place] [address] Glucose [Mass/Vol] 68 mg/dL Low 74-100 [facility] Comment on above: Performed By: #### L AB15 ####Blow Pit Operator: DOMENICA JARA ([phone])[facility])[address] [place] [address] Potassium [Moles/Vol] 5.9 mmol/L High 3.5-5.1 [facility] Comment on above: Result Comment: [facility] potassium values may be up to 0.5 mmol/L lower than serum values. Performed By: #### L AB15 ####Blow Pit Operator: DOMENICA JARA ([id number])[facility])[address] [place] [address] Sodium [Moles/Vol] 136 mmol/L Normal 136-145 [facility] Comment on above: Performed By: #### L AB15 ####Blow Pit Operator: DOMENICA JARA ([id number])[facility])[address] Urea nitrogen [Mass/Vol] 27 mg/dL High 9-23 [facility] Comment on above: Performed By: #### L AB15 ####Blow Pit Operator: DOMENICA JARA ([id number])[facility])[address] Anion gap [Moles/Vol] 9 mmol/L Normal 3-13 [facility] Comment on above: Performed By: #### L AB15 ####Blow Pit Operator: DOMENICA JARA ([id number])[facility] ([facility])[address] [place] [address] Calcium [Mass/Vol] 9.7 mg/dL Normal 8.4-10.2 [facility] Comment on above: Performed By: #### L AB15 ####Blow Pit Operator: DOMENICA JARA ([id number])[facility] ([facility])[address] [place] [address] [place] Chloride [Moles/Vol] 102 mmol/L Normal 98-107 [facility] Comment on above: Performed By: #### L AB15 ####Blow Pit Operator: DOMENICA JARA ([id number])[facility] ([facility])[address] [place] [address] [place] CO2 [Moles/Vol] 25 mmol/L Normal 22-29 [facility] Comment on above: Performed By: #### L AB15 ####Blow Pit Operator: DOMENICA JARA ([id number])[facility] ([facility])[address] [place] [address] [place] Creatinine [Mass/Vol] 3.03 mg/dL High 0.72-1.25 [facility] Comment on above: Performed By: #### L AB15 ####Blow Pit Operator: DOMENICA JARA ([phone])[facility] ([facility])[address] [place] [address] [place] GLOMERULAR FILTRATION RATE ML/MIN/1.73 SQ M.PREDICTED 22.9 mL/min/1.73m*2 Low >60.0 [facility] Comment on above: Result Comment: Calc ulation based on the Chronic Kidney Disease Epidemiology Collaboration (CKD-EPI) equation refit without adjustment for race Performed By: #### L AB15 ####Blow Pit Operator: DOMENICA JARA ([id number])[facility])[address] [place] [address] Glucose [Mass/Vol] 77 mg/dL Normal 74-100 [facility] Comment on above: Performed By: #### L AB15 ####Blow Pit Operator: DOMENICA JARA ([id number])[facility])[address] [place] [address] Potassium [Moles/Vol] 6.6 mmol/L Critically high 3.5-5.1 [facility] Comment on above: Result Comment: Plas ma potassium values may be up to 0.5 mmol/L lower than serum values. Performed By: #### L AB15 ####Blow Pit Operator: DOMENICA JARA ([id number])[facility] ([facility])[address] [place] [address] Sodium [Moles/Vol] 136 mmol/L Normal 136-145 [facility] Comment on above: Performed By: #### L AB15 ####Blow Pit Operator: DOMENICA JARA ([id number])[facility])[address] [place] [address] [place] Urea nitrogen [Mass/Vol] 26 mg/dL High 9-23 [facility] Comment on above: Performed By: #### L AB15 ####Blow Pit Operator: DOMENICA JARA ([id number])[facility])[address] [place] [address] Basic metabolic 1998 panelon 03-05-2025 Anion gap [Moles/Vol] 8 mmol/L 3 - 13 mmol/L [facility] Calcium [Mass/Vol] 9.7 mg/dL 8.4 - 10. 2 mg/dL [facility] Chloride [Moles/Vol] 102 mmol/L 98 - 10 7 mmol/L [facility] CO2 [Moles/Vol] 26 mmol/L 22 - 29 mmol/L [facility] Creatinine [Mass/Vol] 3.1 mg/dL High 0.72 - 1.25 mg/dL [facility] GFR/1.73 sq M.predicted (S/P/Bld) [Vol rate/Area] 22.3 mL/min Low - PINF [facility] Glucose [Mass/Vol] 68 mg/dL Low 74 - 100 mg/dL [facility] Interpretation and review of laboratory results Abnormal [facility] Potassium [Moles/Vol] 5.9 mmol/L High 3.5 - 5.1 mmol/L [facility] Sodium [Moles/Vol] 136 mmol/L 136 - 145 mmol/L [facility] Urea nitrogen [Mass/Vol] 27 mg/dL High 9 - 23 mg/d L [facility] Anion gap [Moles/Vol] 9 mmol/L 3 - 13 mmol/L [facility] Calcium [Mass/Vol] 9.7 mg/dL 8.4 - 10. 2 mg/dL [facility] Chloride [Moles/Vol] 102 mmol/L 98 - 10 7 mmol/L [facility] CO2 [Moles/Vol] 25 mmol/L 22 - 29 mmol/L [facility] Creatinine [Mass/Vol] 3.03 mg/dL High 0.72 - 1.25 mg/dL [facility] GFR/1.73 sq M.predicted (S/P/Bld) [Vol rate/Area] 22.9 mL/min Low - PINF [facility] Glucose [Mass/Vol] 77 mg/dL 74 - 100 mg/dL [facility] Interpretation and review of laboratory results Abnormal [facility] Potassium [Moles/Vol] 6.6 mmol/L Critically high 3.5 - 5.1 mmol/L [facility] Sodium [Moles/Vol] 136 mmol/L 136 - 145 mmol/L [facility] Urea nitrogen [Mass/Vol] 26 mg/dL High 9 - 23 mg/d L [facility] CBC (HEMOGRAM)on 03-05-2025 Erythrocyte distribution width (RBC) [Ratio] 21.6 % High 11.5-15.0 [facility] Comment on above: Performed By: #### L AB294 ####Blow Pit Operator: DOMENICA JARA ([id number])[facility] ([facility])[address] [place] [address] Hematocrit (Bld) [Volume fraction] 25.7 % Low 40.0-52.0 [facility] Comment on above: Performed By: #### L AB294 ####Blow Pit Operator: DOMENICA JARA ([id number])[facility] ([facility])[address] [place] [address] Hemoglobin (Bld) [Mass/Vol] 7.7 g/dL Low 13.0-18.0 [facility] Comment on above: Performed By: #### L AB294 ####Blow Pit Operator: DOMENICA JARA ([id number])[facility] ([facility])[address] [place] [address] MCH (RBC) [Entitic mass] 29.7 pg Normal 26.0-34.0 [facility] Comment on above: Performed By: #### L AB294 ####Blow Pit Operator: DOMENICA JARA ([id number])[facility] ([facility])[address] [place] [address] MCHC 30.0 % Low 30.5-36.0 [facility] Comment on above: Performed By: #### L AB294 ####Blow Pit Operator: DOMENICA JARA ([id number])[facility] ([facility])[address] [place] [address] MCV (RBC) [Entitic vol] 99.2 fL High 77.0-99.0 [facility] Comment on above: Performed By: #### L AB294 ####Blow Pit Operator: DOMENICA JARA ([id number])[facility] ([facility])[address] [place] [address] Platelet mean volume (Bld) [Entitic vol] 9.1 fL Normal 9.0-12.7 [facility] Comment on above: Performed By: #### L AB294 ####Blow Pit Operator: DOMENICA JARA ([id number])[facility] ([facility])[address] [place] [address] Platelets (Bld) [#/Vol] 303 10*3/uL Normal 140-440 [facility] Comment on above: Performed By: #### L AB294 ####Blow Pit Operator: DOMENICA JARA ([id number])[facility])[address] [place] [address] RBC (Bld) [#/Vol] 2.59 10*6/uL Low 4.40-5.90 [facility] Comment on above: Performed By: #### L AB294 ####Blow Pit Operator: DOMENICA JARA ([id number])[facility])[address] [place] [address] WBC (Bld) [#/Vol] 9.1 10*3/uL Normal 3.6-10.7 [facility] Comment on above: Performed By: #### L AB294 ####Blow Pit Operator: DOMENICA JARA ([id number])[facility] ([facility])[address] [place] [address] CBC W/Diff, Automatedon 06-0 9-2024 Absolute Neut Normal 2.0-7.7 [facility] Comment on above: Order Comment: 413-2 Result Comment: [facility] Performed By: #### L 100.0100, L300.3900, L500.4050 #### [facility] [address] [facility] [address] HCT Normal 40-54 [facility] Comment on above: Order Comment: 413-2 Result Comment: [facility] Performed By: #### L 100.0100, L300.3900, L500.4050 #### [facility] [address] [place], [address] HGB Normal 13.0-16.5 [facility] Comment on above: Order Comment: 413-2 Result Comment: [facility] Performed By: #### L 100.0100, L300.3900, L500.4050 #### [facility] [address] [place], [address] MCH Normal 27.0-32.0 [facility] Comment on above: Order Comment: 413-2 Result Comment: [facility] Performed By: #### L 100.0100, L300.3900, L500.4050 #### [facility] [address] [place], [address] MCHC Normal 32-36 [facility] Comment on above: Order Comment: 413-2 Result Comment: [facility] Performed By: #### L 100.0100, L300.3900, L500.4050 #### [facility] [address] [place], [address] MCV Normal 80-94 [facility] Comment on above: Order Comment: 413-2 Result Comment: [facility] Performed By: #### L 100.0100, L300.3900, L500.4050 #### [facility] [address] [place], [address] NEUT% Normal 47-70 [facility] Comment on above: Order Comment: 413-2 Result Comment: [facility] Performed By: #### L 100.0100, L300.3900, [id number] #### [facility] [address] [place], [address] PLT Normal 150-450 [facility] Comment on above: Order Comment: 413-2 Result Comment: [facility] Performed By: #### L 100.0100, L300.3900, [id number] #### [facility] [address] [place], [address] RBC Normal 4.6-6.2 [facility] Comment on above: Order Comment: 413-2 Result Comment: [facility] Performed By: #### L 100.0100, L300.3900, [id number] #### [facility] [address] [place], [address] RDW CV Normal 11.6-14.6 [facility] Comment on above: Order Comment: 413-2 Result Comment: [facility] Performed By: #### L 100.0100, L300.3900, [id number] #### [facility] [address] [place], [address] RDW SD Normal 35.1-43.9 [facility] Comment on above: Order Comment: 413-2 Result Comment: [facility] AT [facility] Performed By: #### L 100.0100, L300.3900, [id number] #### [facility] [address] [place], [address] WBC Normal 4.4-11.0 [facility] Comment on above: Order Comment: 413-2 Result Comment: [facility] Performed By: #### L 100.0100, L300.3900, L500.4050 #### [facility] [address] [place], [address] CBC panel Auto (Bld)on 03-05 Erythrocyte distribution width (RBC) [Ratio] 21.6 % High 11.5 - 15.0 % [facility] [employer] Hematocrit (Bld) [Volume fraction] 25.7 % Low 40.0 - 52.0 % [facility] [employer] Hemoglobin (Bld) [Mass/Vol] 7.7 g/dL Low 13.0 - 18.0 g/dL [facility] [employer] Interpretation and review of laboratory results Abnormal [facility] [employer] MCH (RBC) [Entitic mass] 29.7 pg 26. 0 - 34.0 pg [facility] [employer] MCHC (RBC) [Mass/Vol] 30 % Low 30.5 - 36.0 % [employer] MCV (RBC) [Entitic vol] 99.2 fL High 77.0 - 99.0 fL [employer] Platelet mean volume (Bld) [Entitic vol] 9.1 fL 9.0 - 12.7 fL [facility] [employer] Platelets (Bld) [#/Vol] 303 10*3/uL 140 - 440 10*3/uL [facility] RBC (Bld) [#/Vol] 2.59 10*6/uL Low 4.40 - 5.9 0 10*6/uL [facility] WBC (Bld) [#/Vol] 9.1 10*3/uL 3.6 - 10.7 10*3/uL [facility] Comprehensive Metabolic Prof joe 03-05-2025 ALB Normal 3.5-5.0 [facility] Comment on above: Order Comment: 413-2 Result Comment: [facility] Performed By: #### L 100.0100, L300.3900, L500.4050 #### [facility] [address] [place], [address] ALK PHOS Normal 40-129 [facility] Comment on above: Order Comment: 413-2 Result Comment: [facility] Performed By: #### L 100.0100, L300.3900, L500.4050 #### [facility] [address] [place], [address] ALT Normal <=46 [facility] Comment on above: Order Comment: 413-2 Result Comment: [facility] Performed By: #### L 100.0100, L300.3900, L500.4050 #### [facility] [address] [place], [address] AST Normal <=37 [facility] Comment on above: Order Comment: 413-2 Result Comment: [facility] Performed By: #### L 100.0100, L300.3900, L500.4050 #### [facility] [address] [place], [address] BUN Normal 4-19 [facility] Comment on above: Order Comment: 413-2 Result Comment: [facility] Performed By: #### L 100.0100, L300.3900, L500.4050 #### [facility] [address] [place], [address] BUN/CRE Normal 10-20 [facility] Comment on above: Order Comment: 413-2 Result Comment: [facility] Performed By: #### L 100.0100, L300.3900, L500.4050 #### [facility] [address] [place], [address] Calcium Normal 7.6-11.0 [facility] Comment on above: Order Comment: 413-2 Result Comment: [facility] Performed By: #### L 100.0100, L300.3900, L500.4050 #### [facility] [address] [place], [address] CL Normal 98-108 [facility] Comment on above: Order Comment: 413-2 Result Comment: [facility] Performed By: #### L 100.0100, L300.3900, L500.4050 #### [facility] [address] [place], [address] CO2 Normal 21.0-32.0 [facility] Comment on above: Order Comment: 413-2 Result Comment: [facility] Performed By: #### L 100.0100, L300.3900, L500.4050 #### [facility] [address] [place], [address] CREAT,SERUM Normal 0.70-1.20 [facility] Comment on above: Order Comment: 413-2 Result Comment: [facility] Performed By: #### L 100.0100, L300.3900, L500.4050 #### [facility] [address] [place], [address] eGFR Normal >60 [facility] Comment on above: Order Comment: 413-2 Result Comment: [facility] Performed By: #### L 100.0100, L300.3900, L500.4050 #### [facility] [address] [place], [address] GAP Normal 5-15 [facility] Comment on above: Order Comment: 413-2 Result Comment: [facility] Performed By: #### L 100.0100, L300.3900, L500.4050 #### [facility] [address] [place], [address] GLU Normal 70-99 [facility] Comment on above: Order Comment: 413-2 Result Comment: [facility] Performed By: #### L 100.0100, L300.3900, L500.4050 #### [facility] [address] [place], [address] Potassium Normal 3.3-5.1 [facility] Comment on above: Order Comment: 413-2 Result Comment: [facility] Performed By: #### L 100.0100, L300.3900, L500.4050 #### [facility] [address] [place], [address] T BILI Normal 0.00-1.30 [facility] Comment on above: Order Comment: 413-2 Result Comment: [facility] Performed By: #### L 100.0100, L300.3900, L500.4050 #### [facility] [address] [place], [address] T PROT Normal 5.9-8.4 [facility] Comment on above: Order Comment: 413-2 Result Comment: [facility] Performed By: #### L 100.0100, L300.3900, L500.4050 #### [facility] [address] [place], [address] Comprehensive Metabolic Profil Normal 133-145 [facility] Comment on above: Order Comment: 413-2 Result Comment: [facility] Performed By: #### L 100.0100, L300.3900, L500.4050 #### [facility] [address] [place], [address] Laboratory - Chemistry and C hemistry - challengeon 03-05-2025 Glucose [Mass/Vol] 142 mg/dL High 70 - 100 mg/dL [facility] Glucose [Mass/Vol] 83 mg/dL 70 - 100 mg/dL [facility] Laboratory - Coagulationon 0 03-05-2025 PT Coag (Bld) [Time] 18.6 s High 9.0 - 12.0 s [facility] No Panel Informationon 03-05 Interpretation and review of laboratory results Abnormal [facility] Interpretation and review of laboratory results Normal [facility] Interpretation and review of laboratory results Abnormal [facility] PROTHROMBIN TIMEon INR Coag (PPP) [Relative time] 1.8 {INR} High 0.9-1.1 [facility] Comment on above: Result Comment: Vaughn [...] Myocardial Infarction Performed By: #### Tameka AB325, [id number] ####Blow Pit Operator: DOMENICA JARA ([phone])[address] PT Coag (PPP) [Time] 18.6 s High 9.0-12.0 [facility] Comment on above: Performed By: #### Tameka AB325, [id number] ####Blow Pit Operator: DOMENICA AJRA ([phone])[facility])[address] [place] [address] PT Coag (Bld) [Time]on 03-05 INR Coag (PPP) [Relative time] 1.8 {INR} High 0.9 - 1.1 [facility] Progress Noteon 03-05-2025 Progress Note Normal [facility] Progress Note Normal [facility] Progress Note Normal [facility] Progress [facility] Normal [facility] Prothrombin Time w/INRon INR Normal [facility] Comment on above: Order Comment: 413-2 Result Comment: [facility] Performed By: #### L 100.0100, L300.3900, L500.4050 #### [facility] [address] [place], [address] PROTIME Normal 11.7-14.9 [facility] Comment on above: Order Comment: 413-2 Result Comment: [facility] Performed By: #### L 100.0100, L300.3900, L500.4050 #### [facility] [address] [place], [address] aPTT Coag (Bld) [Time]on aPTT Coag (PPP) [Time] 37.6 s High 20.0 - 30.5 s [facility] 30on 03-04-2025 30 Normal [facility] [id number] 03-04-2025 [id number] Normal [facility] APTTon 03-04-2025 aPTT Coag (Bld) [Time] 52.2 s High 20.0-30.5 [facility] Comment on above: Result Comment: ARPAN Kaplan COMMENTS:NOTE: The therapeutic time for Heparin anticoagulation, based on Xa activity inhibition, is an APTT of 46-80 seconds. Performed By: #### L AB325, [id number] ####Blow Pit Operator: DOMENICA JARA ([phone])[facility] ([facility])[address] [place] [address] BASIC METABOLIC PANELon Anion gap [Moles/Vol] 11 mmol/L Normal 3-13 [facility] Comment on above: Performed By: #### L AB15 ####Blow Pit Operator: DOMENICA JARA ([phone])[facility] ([facility])[address] [place] [address] [place] Calcium [Mass/Vol] 9.4 mg/dL Normal 8.4-10.2 [facility] Comment on above: Performed By: #### L AB15 ####Blow Pit Operator: DOMENICA JARA ([phone])[facility] ([facility] [place] [address] Chloride [Moles/Vol] 103 mmol/L Normal 98-107 [facility] Comment on above: Performed By: #### L AB15 ####Blow Pit Operator: DOMENICA JARA ([phone])[facility] ([facility] [place] [address] CO2 [Moles/Vol] 27 mmol/L Normal 22-29 [facility] Comment on above: Performed By: #### L AB15 ####Blow Pit Operator: DOMENICA JARA ([phone])[facility] ([facility])[address] [place] [address] Creatinine [Mass/Vol] 2.41 mg/dL High 0.72-1.25 [facility] Comment on above: Performed By: #### L AB15 ####Blow Pit Operator: DOMENICA JARA ([phone])[facility] ([facility])[address] [place] [address] GLOMERULAR FILTRATION RATE ML/MIN/1.73 SQ M.PREDICTED 30.2 mL/min/1.73m*2 Low >60.0 [facility] Comment on above: Result Comment: Calc ulation based on the Chronic Kidney Disease Epidemiology Collaboration (CKD-EPI) equation refit without adjustment for race Performed By: #### L AB15 ####Blow Pit Operator: DOMENICA JARA ([phone])[facility] ([facility] [place] [address] [place] Glucose [Mass/Vol] 99 mg/dL Normal 74-100 [facility] Comment on above: Performed By: #### L AB15 ####Blow Pit Operator: DOMENICA JARA ([phone])[facility] ([facility])[address] [place] [address] [place] Potassium [Moles/Vol] 5.1 mmol/L Normal 3.5-5.1 [facility] Comment on above: Result Comment: [facility] potassium values may be up to 0.5 mmol/L lower than serum values. Performed By: #### L AB15 ####Blow Pit Operator: DOMENICA JARA ([phone])[facility] ([facility])[address] [place] [address] Sodium [Moles/Vol] 141 mmol/L Normal 136-145 [facility] Comment on above: Performed By: #### L AB15 ####Blow Pit Operator: DOMENICA JARA ([phone])[facility] ([facility])[address] [place] [address] Urea nitrogen [Mass/Vol] 18 mg/dL Normal 9-23 [facility] Comment on above: Performed By: #### L AB15 ####Blow Pit Operator: DOMENICA JARA ([phone])[facility] ([facility])[address] [place] [address] Basic metabolic 1998 panelon 03-04-2025 Anion gap [Moles/Vol] 11 mmol/L 3 - 13 mmol/L [facility] Calcium [Mass/Vol] 9.4 mg/dL 8.4 - 10. 2 mg/dL [facility] Chloride [Moles/Vol] 103 mmol/L 98 - 10 7 mmol/L [facility] CO2 [Moles/Vol] 27 mmol/L 22 - 29 mmol/L [facility] Creatinine [Mass/Vol] 2.41 mg/dL High 0.72 - 1.25 mg/dL [facility] GFR/1.73 sq M.predicted (S/P/Bld) [Vol rate/Area] 30.2 mL/min Low - PINF [facility] Glucose [Mass/Vol] 99 mg/dL 74 - 100 mg/dL [facility] Interpretation and review of laboratory results Abnormal [facility] Potassium [Moles/Vol] 5.1 mmol/L 3.5 - 5.1 mmol/L [facility] Sodium [Moles/Vol] 141 mmol/L 136 - 145 mmol/L [facility] Urea nitrogen [Mass/Vol] 18 mg/dL 9 - 23 mg/d L [facility] CBC (HEMOGRAM)on 03-04-2025 Erythrocyte distribution width (RBC) [Ratio] 21.4 % High 11.5-15.0 [facility] Comment on above: Performed By: #### L AB294 ####Blow Pit Operator: DOMENICA JARA ([phone])[facility])[address] [place] [address] Hematocrit (Bld) [Volume fraction] 25.9 % Low 40.0-52.0 [facility] Comment on above: Performed By: #### L AB294 ####Blow Pit Operator: DOMENICA JARA ([phone])[facility])[address] [place] [address] Hemoglobin (Bld) [Mass/Vol] 7.7 g/dL Low 13.0-18.0 [facility] Comment on above: Performed By: #### L AB294 ####Blow Pit Operator: DOMENICA JARA ([phone])[facility])[address] [place] [address] MCH (RBC) [Entitic mass] 29.3 pg Normal 26.0-34.0 [facility] Comment on above: Performed By: #### L AB294 ####Blow Pit Operator: DMOENICA JARA ([phone])[facility])[address] [place] [address] MCHC 29.7 % Low 30.5-36.0 [facility] Comment on above: Performed By: #### L AB294 ####Blow Pit Operator: DOMENICA JARA ([phone])[facility])[address] [place] [address] MCV (RBC) [Entitic vol] 98.5 fL Normal 77.0-99.0 [facility] Comment on above: Performed By: #### L AB294 ####Blow Pit Operator: DOMENICA JARA ([phone])[facility])[address] [place] [address] Platelet mean volume (Bld) [Entitic vol] 9.3 fL Normal 9.0-12.7 [facility] Comment on above: Performed By: #### L AB294 ####Blow Pit Operator: DOMENICA JARA ([phone])[facility])[address] [place] [address] Platelets (Bld) [#/Vol] 324 10*3/uL Normal 140-440 [facility] Comment on above: Performed By: #### L AB294 ####Blow Pit Operator: DOMENICA JARA ([phone])[facility] ([facility])[address] [place] [address] RBC (Bld) [#/Vol] 2.63 10*6/uL Low 4.40-5.90 [facility] Comment on above: Performed By: #### L AB294 ####Blow Pit Operator: DOMENICA JARA ([phone])[facility] ([facility])[address] [place] [address] WBC (Bld) [#/Vol] 7.7 10*3/uL Normal 3.6-10.7 [facility] Comment on above: Performed By: #### L AB294 ####Blow Pit Operator: DOMENICA JARA ([phone])[facility])[address] [place] [address] CBC panel Auto (Bld)on 03-04 Erythrocyte distribution width (RBC) [Ratio] 21.4 % High 11.5 - 15.0 % [facility] Hematocrit (Bld) [Volume fraction] 25.9 % Low 40.0 - 52.0 % [facility] Hemoglobin (Bld) [Mass/Vol] 7.7 g/dL Low 13.0 - 18.0 g/dL [facility] Interpretation and review of laboratory results Abnormal [facility] MCH (RBC) [Entitic mass] 29.3 pg 26. 0 - 34.0 pg [facility] MCHC (RBC) [Mass/Vol] 29.7 % Low 30.5 - 36.0 % [facility] MCV (RBC) [Entitic vol] 98.5 fL 77.0 - 99.0 fL [facility] Platelet mean volume (Bld) [Entitic vol] 9.3 fL 9.0 - 12.7 fL [facility] Platelets (Bld) [#/Vol] 324 10*3/uL 140 - 440 10*3/uL [facility] RBC (Bld) [#/Vol] 2.63 10*6/uL Low 4.40 - 5.9 0 10*6/uL [facility] WBC (Bld) [#/Vol] 7.7 10*3/uL 3.6 - 10.7 10*3/uL [facility] Laboratory - Coagulationon 0 03-04-2025 PT Coag (Bld) [Time] 16.6 s High 9.0 - 12.0 s [facility] PT Coag (Bld) [Time] 15.5 s High 9.0 - 12.0 s [facility] No Panel Informationon 03-04 Interpretation and review of laboratory results Abnormal [facility] PROTHROMBIN TIMEon INR Coag (PPP) [Relative time] 1.6 {INR} High 0.9-1.1 [facility] Comment on above: Result Comment: Vaughn [...] Myocardial Infarction Performed By: #### L AB320 ####Blow Pit Operator: DOMENICA JARA ([phone])[address] PT Coag (PPP) [Time] 16.6 s High 9.0-12.0 [facility] Comment on above: Performed By: #### L AB320 ####Blow Pit Operator: DOMENICA JARA ([id number])[address] INR Coag (PPP) [Relative time] 1.5 {INR} High 0.9-1.1 [facility] Comment on above: Result Comment: Vaughn [...] Myocardial Infarction Performed By: #### Tameka AB325, [id number] ####Blow Pit Operator: DOMENICA JARA ([phone])[facility] ([facility])[address] [place] [address] PT Coag (PPP) [Time] 15.5 s High 9.0-12.0 [facility] Comment on above: Performed By: #### Tameka AB325, [id number] ####Blow Pit Operator: DOMENICA JARA ([phone])[facility] ([address] PT Coag (Bld) [Time]on 03-04 INR Coag (PPP) [Relative time] 1.6 {INR} High 0.9 - 1.1 [facility] Interpretation and review of laboratory results Abnormal [facility] INR Coag (PPP) [Relative time] 1.5 {INR} High 0.9 - 1.1 [facility] Progress Noteon 03-04-2025 Progress Note Normal [facility] Progress Note Normal [facility] Progress Note Normal [facility] aPTT Coag (Bld) [Time]on aPTT Coag (PPP) [Time] 52.2 s High 20.0 - 30.5 s [facility] 30on 03-03-2025 30 Normal [facility] 30 Normal [facility] 30 Normal [facility] [id number] 03-03-2025 [id number] Normal [facility] APTTon 03-03-2025 aPTT Coag (Bld) [Time] 66.2 s High 20.0-30.5 [facility] Comment on above: Result Comment: ARPAN Kaplan COMMENTS:NOTE: The therapeutic time for Heparin anticoagulation, based on Xa activity inhibition, is an APTT of 46-80 seconds. Performed By: #### L AB325 ####Blow Pit Operator: DOMENICA JARA ([phone])[facility] ([facility])[address] [place] [address] aPTT Coag (Bld) [Time] 52.4 s High 20.0-30.5 [facility] Comment on above: Result Comment: ARPAN Kaplan COMMENTS:NOTE: The therapeutic time for Heparin anticoagulation, based on Xa activity inhibition, is an APTT of 46-80 seconds. Performed By: #### L AB325, [id number] ####Blow Pit Operator: DOMENICA JARA ([phone])[facility] ([facility])[address] [place] [address] BASIC METABOLIC PANELon 06-0 Anion gap [Moles/Vol] 10 mmol/L Normal 3-13 [facility] Comment on above: Performed By: #### L AB15 ####Blow Pit Operator: DOMENICA JARA ([phone])[facility] ([facility])[address] [place] [address] Calcium [Mass/Vol] 9.2 mg/dL Normal 8.4-10.2 [facility] Comment on above: Performed By: #### L AB15 ####Blow Pit Operator: DOMENICA JARA ([phone])[facility] ([facility])[address] [place] [address] Chloride [Moles/Vol] 100 mmol/L Normal 98-107 [facility] Comment on above: Performed By: #### L AB15 ####Blow Pit Operator: DOMENICA JARA ([phone])[facility] ([facility])[address] [place] [address] CO2 [Moles/Vol] 29 mmol/L Normal 22-29 [facility] Comment on above: Performed By: #### L AB15 ####Blow Pit Operator: DOMENICA JARA ([phone])[facility] ([facility])[address] [place] [address] Creatinine [Mass/Vol] 1.92 mg/dL High 0.72-1.25 [facility] Comment on above: Performed By: #### L AB15 ####Blow Pit Operator: DOMENICA JARA ([phone])[facility])[address] [place] [address] GLOMERULAR FILTRATION RATE ML/MIN/1.73 SQ M.PREDICTED 39.6 mL/min/1.73m*2 Low >60.0 [facility] Comment on above: Result Comment: Calc ulation based on the Chronic Kidney Disease Epidemiology Collaboration (CKD-EPI) equation refit without adjustment for race Performed By: #### L AB15 ####Blow Pit Operator: DOMENICA JARA ([phone])[address] Glucose [Mass/Vol] 71 mg/dL Low 74-100 [facility] Comment on above: Performed By: #### L AB15 ####Blow Pit Operator: DOMENICA JARA ([phone])[address] Potassium [Moles/Vol] 4.8 mmol/L Normal 3.5-5.1 [facility] Comment on above: Result Comment: [facility] potassium values may be up to 0.5 mmol/L lower than serum values. Performed By: #### L AB15 ####Blow Pit Operator: DOMENICA JARA ([phone])[facility] ([facility])[address] [place] [address] [place] Sodium [Moles/Vol] 139 mmol/L Normal 136-145 [facility] Comment on above: Performed By: #### L AB15 ####Blow Pit Operator: DOMENICA JARA ([phone])[place] [address] [place] Urea nitrogen [Mass/Vol] 14 mg/dL Normal 9-23 [facility] Comment on above: Performed By: #### L AB15 ####Blow Pit Operator: DOMENICA [id number])[address] [place] [address] [place] Anion gap [Moles/Vol] 11 mmol/L Normal 3-13 [facility] Comment on above: Performed By: #### L AB15 ####Blow Pit Operator: DOMENICA JARA ([phone])[facility] ([facility])[address] [place] [address] Calcium [Mass/Vol] 9.8 mg/dL Normal 8.4-10.2 [facility] Comment on above: Performed By: #### L AB15 ####Blow Pit Operator: DOMENICA JARA ([phone])[facility] [place] [address] Chloride [Moles/Vol] 101 mmol/L Normal 98-107 [facility] Comment on above: Performed By: #### L AB15 ####Blow Pit Operator: DOMENICA JRAA ([phone])[facility])[address] [place] [address] CO2 [Moles/Vol] 28 mmol/L Normal 22-29 [facility] Comment on above: Performed By: #### L AB15 ####Blow Pit Operator: DOMENICA JARA ([phone])[facility] ([facility])[address] [place] [address] Creatinine [Mass/Vol] 3.21 mg/dL High 0.72-1.25 [facility] Comment on above: Performed By: #### L AB15 ####Blow Pit Operator: DOMENICA JARA ([phone])[facility])[address] [place] [address] GLOMERULAR FILTRATION RATE ML/MIN/1.73 SQ M.PREDICTED 21.4 mL/min/1.73m*2 Low >60.0 [facility] Comment on above: Result Comment: Calc ulation based on the Chronic Kidney Disease Epidemiology Collaboration (CKD-EPI) equation refit without adjustment for race Performed By: #### L AB15 ####Blow Pit Operator: DOMENICA JARA ([phone])[facility] ([facility])[address] [place] [address] [place] Glucose [Mass/Vol] 93 mg/dL Normal 74-100 [facility] Comment on above: Performed By: #### L AB15 ####Blow Pit Operator: DOMENICA JARA ([phone])[facility] ([facility])[address] [place] [address] Potassium [Moles/Vol] 6.2 mmol/L Critically high 3.5-5.1 [facility] Comment on above: Result Comment: [facility] potassium values may be up to 0.5 mmol/L lower than serum values. Performed By: #### L AB15 ####Blow Pit Operator: DOMENICA JARA ([phone])[facility] ([facility])[address] [place] [address] Sodium [Moles/Vol] 140 mmol/L Normal 136-145 [facility] Comment on above: Performed By: #### L AB15 ####Blow Pit Operator: DOMENICA JARA ([phone])[facility] ([facility])[address] [place] [address] Urea nitrogen [Mass/Vol] 26 mg/dL High 9-23 [facility] Comment on above: Performed By: #### L AB15 ####Blow Pit Operator: DOMENICA JARA ([phone])[facility])[address] [place] [address] Basic metabolic 1998 panelOr dered By: Piedad Alvarado on 03-03-2025 Anion gap [Moles/Vol] 10 mmol/L 3 - 13 mmol/L [facility] Calcium [Mass/Vol] 9.2 mg/dL 8.4 - 10. 2 mg/dL [facility] Chloride [Moles/Vol] 100 mmol/L 98 - 10 7 mmol/L [facility] CO2 [Moles/Vol] 29 mmol/L 22 - 29 mmol/L [facility] Creatinine [Mass/Vol] 1.92 mg/dL High 0.72 - 1.25 mg/dL [facility] GFR/1.73 sq M.predicted (S/P/Bld) [Vol rate/Area] 39.6 mL/min Low - PINF [facility] Glucose [Mass/Vol] 71 mg/dL Low 74 - 100 mg/dL [facility] Interpretation and review of laboratory results Abnormal [facility] Potassium [Moles/Vol] 4.8 mmol/L 3.5 - 5.1 mmol/L [facility] Sodium [Moles/Vol] 139 mmol/L 136 - 145 mmol/L [facility] Urea nitrogen [Mass/Vol] 14 mg/dL 9 - 23 mg/d L [facility] Basic metabolic 1998 panelOr dered By: Jenni Romano on 03-03-2025 Anion gap [Moles/Vol] 11 mmol/L 3 - 13 mmol/L [facility] Calcium [Mass/Vol] 9.8 mg/dL 8.4 - 10. 2 mg/dL [facility] Chloride [Moles/Vol] 101 mmol/L 98 - 10 7 mmol/L [facility] CO2 [Moles/Vol] 28 mmol/L 22 - 29 mmol/L [facility] Creatinine [Mass/Vol] 3.21 mg/dL High 0.72 - 1.25 mg/dL [facility] GFR/1.73 sq M.predicted (S/P/Bld) [Vol rate/Area] 21.4 mL/min Low - PINF [facility] Glucose [Mass/Vol] 93 mg/dL 74 - 100 mg/dL [facility] Interpretation and review of laboratory results Abnormal [facility] Potassium [Moles/Vol] 6.2 mmol/L Critically high 3.5 - 5.1 mmol/L [facility] Sodium [Moles/Vol] 140 mmol/L 136 - 145 mmol/L [facility] Urea nitrogen [Mass/Vol] 26 mg/dL High 9 - 23 mg/d L [facility] CBC (HEMOGRAM)on 03-03-2025 Erythrocyte distribution width (RBC) [Ratio] 20.9 % High 11.5-15.0 [facility] Comment on above: Performed By: #### L [id number] ####Blow Pit Operator: DOMENICA JARA ([id number])[address] Hematocrit (Bld) [Volume fraction] 27.8 % Low 40.0-52.0 [facility] Comment on above: Performed By: #### L AB294 ####Blow Pit Operator: DOMENICA JARA ([id number])[facility] ([facility])[address] [place] [address] Hemoglobin (Bld) [Mass/Vol] 8.3 g/dL Low 13.0-18.0 [facility] Comment on above: Performed By: #### L AB294 ####Blow Pit Operator: DOMENICA JARA ([phone])[facility] ([facility])[address] [place] [address] IPF 2 Normal [facility] Comment on above: Performed By: #### L AB294 ####Blow Pit Operator: DOMENICA JARA ([id number])[facility] ([facility])[address] [place] [address] MCH (RBC) [Entitic mass] 29.5 pg Normal 26.0-34.0 [facility] Comment on above: Performed By: #### L AB294 ####Blow Pit Operator: DOMENICA JARA ([id number])[facility] ([facility])[address] [place] [address] MCHC 29.9 % Low 30.5-36.0 [facility] Comment on above: Performed By: #### L AB294 ####Blow Pit Operator: DOMENICA JARA ([id number])[facility] ([facility])[address] [place] [address] MCV (RBC) [Entitic vol] 98.9 fL Normal 77.0-99.0 [facility] Comment on above: Performed By: #### L AB294 ####Blow Pit Operator: DOMENICA JARA ([phone])[facility] ([facility])[address] [place] [address] Platelet mean volume (Bld) [Entitic vol] 9.1 fL Normal 9.0-12.7 [facility] Comment on above: Performed By: #### L AB294 ####Blow Pit Operator: DOMENICA JARA ([id number])[facility] ([facility])[address] [place] [address] Platelets (Bld) [#/Vol] 397 10*3/uL Normal 140-440 [facility] Comment on above: Performed By: #### L AB294 ####Blow Pit Operator: DOMENICA JARA ([phone])[address] RBC (Bld) [#/Vol] 2.81 10*6/uL Low 4.40-5.90 [facility] Comment on above: Performed By: #### L AB294 ####Blow Pit Operator: DOMENICA JARA ([phone])[facility])[address] [place] [address] WBC (Bld) [#/Vol] 8.9 10*3/uL Normal 3.6-10.7 [facility] Comment on above: Performed By: #### L AB294 ####Blow Pit Operator: DOMENICA JARA ([phone])[address] CBC panel Auto (Bld)Ordered By: Victorino Graham on 03-03-2025 Erythrocyte distribution width (RBC) [Ratio] 20.9 % High 11.5 - 15.0 % [facility] Hematocrit (Bld) [Volume fraction] 27.8 % Low 40.0 - 52.0 % [facility] Hemoglobin (Bld) [Mass/Vol] 8.3 g/dL Low 13.0 - 18.0 g/dL [facility] Interpretation and review of laboratory results Abnormal [facility] IPF 2 [facility] MCH (RBC) [Entitic mass] 29.5 pg 26. 0 - 34.0 pg [facility] MCHC (RBC) [Mass/Vol] 29.9 % Low 30.5 - 36.0 % [facility] MCV (RBC) [Entitic vol] 98.9 fL 77.0 - 99.0 fL [facility] Platelet mean volume (Bld) [Entitic vol] 9.1 fL 9.0 - 12.7 fL [facility] Platelets (Bld) [#/Vol] 397 10*3/uL 140 - 440 10*3/uL [facility] RBC (Bld) [#/Vol] 2.81 10*6/uL Low 4.40 - 5.9 0 10*6/uL [facility] WBC (Bld) [#/Vol] 8.9 10*3/uL 3.6 - 10.7 10*3/uL [facility] Laboratory - Coagulationon 0 03-03-2025 PT Coag (Bld) [Time] 16.2 s High 9.0 - 12.0 s [facility] No Panel Informationon 03-03 Interpretation and review of laboratory results Abnormal [facility] Nursing Noteon 03-03-2025 Nursing Note Normal [facility] Nursing Note In patient's chart, d/t patient being on his call light excessively and finally telling me he wants something for pain. Please see eMAR for administration Normal [facility] PROTHROMBIN TIMEon INR Coag (PPP) [Relative time] 1.6 {INR} High 0.9-1.1 [facility] Comment on above: Result Comment: Vaughn [...] Myocardial Infarction Performed By: #### Tameka AB325, [id number] ####Blow Pit Operator: DOMENICA JARA ([id number])[address] PT Coag (PPP) [Time] 16.2 s High 9.0-12.0 [facility] Comment on above: Performed By: #### L AB325, [id number] ####Blow Pit Operator: DOMENICA JARA ([id number])[address] PT Coag (Bld) [Time]on 03-03 INR Coag (PPP) [Relative time] 1.6 {INR} High 0.9 - 1.1 [facility] Progress Noteon 03-03-2025 Progress Note Normal [facility] Progress Note Normal [facility] Progress Note Normal [facility] aPTT Coag (Bld) [Time]on aPTT Coag (PPP) [Time] 66.2 s High 20.0 - 30.5 s [facility] Interpretation and review of laboratory results Abnormal [facility] aPTT Coag (PPP) [Time] 52.4 s High 20.0 - 30.5 s [facility] 30on 03-02-2025 30 Switch to augmentin 500mg q24 (to be taken after HD on HD days) until 03/10/25. Team aware of discharge plan Waiting for INR to be in therapeutic range ID will sign off Please re consult if needed Hussain Quintana MD 03/02/2025 12:43 PM Normal [facility] 30 Normal [facility] [id number] 03-02-2025 [id number] Normal [facility] APTTon 03-02-2025 aPTT Coag (Bld) [Time] 68.9 s High 20.0-30.5 [facility] Comment on above: Result Comment: ARPAN Kaplan COMMENTS:NOTE: The therapeutic time for Heparin anticoagulation, based on Xa activity inhibition, is an APTT of 46-80 seconds. Performed By: #### L AB325 ####Blow Pit Operator: DOMENICA JARA ([id number])[address] aPTT Coag (Bld) [Time] 44.7 s High 20.0-30.5 [facility] Comment on above: Result Comment: ARPAN Kaplan COMMENTS:NOTE: The therapeutic time for Heparin anticoagulation, based on Xa activity inhibition, is an APTT of 46-80 seconds. Performed By: #### L AB325 ####Blow Pit Operator: DOMENICA JARA ([phone])[address] aPTT Coag (Bld) [Time] 56.5 s High 20.0-30.5 [facility] Comment on above: Result Comment: ARPAN Kaplan COMMENTS:NOTE: The therapeutic time for Heparin anticoagulation, based on Xa activity inhibition, is an APTT of 46-80 seconds. Performed By: #### L AB325 ####Blow Pit Operator: DOMENICA JARA ([id number])[facility] ([facility])[address] [place] [address] aPTT Coag (Bld) [Time] 44.7 s High 20.0-30.5 [facility] Comment on above: Result Comment: ARPAN Kaplan COMMENTS:NOTE: The therapeutic time for Heparin anticoagulation, based on Xa activity inhibition, is an APTT of 46-80 seconds. Performed By: #### L AB320, [id number] ####Blow Pit Operator: DOMENICA JARA ([phone])[facility] ([facility])[address] [place] [address] BASIC METABOLIC PANELon 06-0 Anion gap [Moles/Vol] 11 mmol/L Normal 3-13 [facility] Comment on above: Performed By: #### L AB15 ####Blow Pit Operator: DOMENICA JARA ([id number])[facility] ([facility])[address] [place] [address] Calcium [Mass/Vol] 9.2 mg/dL Normal 8.4-10.2 [facility] Comment on above: Performed By: #### L AB15 ####Blow Pit Operator: DOMENICA JARA ([phone])[facility] ([facility])[address] [place] [address] Chloride [Moles/Vol] 102 mmol/L Normal 98-107 [facility] Comment on above: Performed By: #### L AB15 ####Blow Pit Operator: DOMENICA JARA ([id number])[facility] ([facility])[address] [place] [address] [place] CO2 [Moles/Vol] 26 mmol/L Normal 22-29 [facility] Comment on above: Performed By: #### L AB15 ####Blow Pit Operator: DOMENICA JARA ([id number])[facility] ([facility])[address] [place] [address] [place] Creatinine [Mass/Vol] 2.53 mg/dL High 0.72-1.25 [facility] Comment on above: Performed By: #### L AB15 ####Blow Pit Operator: DOMENICA JARA ([phone])[facility])[address] [place] [address] GLOMERULAR FILTRATION RATE ML/MIN/1.73 SQ M.PREDICTED 28.5 mL/min/1.73m*2 Low >60.0 [facility] Comment on above: Result Comment: Calc ulation based on the Chronic Kidney Disease Epidemiology Collaboration (CKD-EPI) equation refit without adjustment for race Performed By: #### L AB15 ####Blow Pit Operator: DOMENICA JARA ([id number])[address] Glucose [Mass/Vol] 107 mg/dL High 74-100 [facility] Comment on above: Performed By: #### L AB15 ####Blow Pit Operator: DOMENICA JARA ([id number])[address] Potassium [Moles/Vol] 4.6 mmol/L Normal 3.5-5.1 [facility] Comment on above: Result Comment: [facility] potassium values may be up to 0.5 mmol/L lower than serum values. Performed By: #### L AB15 ####Blow Pit Operator: DOMENICA JARA ([phone])[facility])[address] [place] [address] Sodium [Moles/Vol] 139 mmol/L Normal 136-145 [facility] Comment on above: Performed By: #### L AB15 ####Blow Pit Operator: DOMENICA JARA ([id number])[address] Urea nitrogen [Mass/Vol] 16 mg/dL Normal 9-23 [facility] Comment on above: Performed By: #### L AB15 ####Blow Pit Operator: DOMENICA [id number])[address] Basic metabolic 1998 panelon 03-02-2025 Anion gap [Moles/Vol] 11 mmol/L 3 - 13 mmol/L [facility] Calcium [Mass/Vol] 9.2 mg/dL 8.4 - 10. 2 mg/dL [facility] Chloride [Moles/Vol] 102 mmol/L 98 - 10 7 mmol/L [facility] CO2 [Moles/Vol] 26 mmol/L 22 - 29 mmol/L [facility] Creatinine [Mass/Vol] 2.53 mg/dL High 0.72 - 1.25 mg/dL [facility] GFR/1.73 sq M.predicted (S/P/Bld) [Vol rate/Area] 28.5 mL/min Low - PINF [facility] Glucose [Mass/Vol] 107 mg/dL High 74 - 100 mg/dL [facility] Interpretation and review of laboratory results Abnormal [facility] Potassium [Moles/Vol] 4.6 mmol/L 3.5 - 5.1 mmol/L [facility] Sodium [Moles/Vol] 139 mmol/L 136 - 145 mmol/L [facility] Urea nitrogen [Mass/Vol] 16 mg/dL 9 - 23 mg/d L [facility] CBC (HEMOGRAM)on 03-02-2025 Erythrocyte distribution width (RBC) [Ratio] 20.1 % High 11.5-15.0 [facility] Comment on above: Performed By: #### L AB294 ####Blow Pit Operator: DOMENICA [id number])[address] Hematocrit (Bld) [Volume fraction] 25.4 % Low 40.0-52.0 [facility] Comment on above: Performed By: #### L AB294 ####Blow Pit Operator: DOMENICA [id number])[address] Hemoglobin (Bld) [Mass/Vol] 7.7 g/dL Low 13.0-18.0 [facility] Comment on above: Performed By: #### L AB294 ####Blow Pit Operator: DOMENICA [id number])[facility] [place] [address] IPF 2 Normal [facility] Comment on above: Performed By: #### L AB294 ####Blow Pit Operator: DOMENICA JARA ([phone])[facility])[address] [place] [address] MCH (RBC) [Entitic mass] 29.7 pg Normal 26.0-34.0 [facility] Comment on above: Performed By: #### L AB294 ####Blow Pit Operator: DOMENICA JARA ([id number])[facility])[address] [place] [address] MCHC 30.3 % Low 30.5-36.0 [facility] Comment on above: Performed By: #### L AB294 ####Blow Pit Operator: DOMENICA JARA ([phone])[facility])[address] [place] [address] MCV (RBC) [Entitic vol] 98.1 fL Normal 77.0-99.0 [facility] Comment on above: Performed By: #### L AB294 ####Blow Pit Operator: DOMENICA JARA ([id number])[facility])[address] [place] [address] Platelet mean volume (Bld) [Entitic vol] 9.0 fL Normal 9.0-12.7 [facility] Comment on above: Performed By: #### L AB294 ####Blow Pit Operator: DOMENICA JARA ([id number])[facility])[address] [place] [address] Platelets (Bld) [#/Vol] 354 10*3/uL Normal 140-440 [facility] Comment on above: Performed By: #### L AB294 ####Blow Pit Operator: DOMENICA JARA ([id number])[facility])[address] [place] [address] RBC (Bld) [#/Vol] 2.59 10*6/uL Low 4.40-5.90 [facility] Comment on above: Performed By: #### L AB294 ####Blow Pit Operator: DOMENICA JARA ([phone])[facility] ([facility])[address] [place] [address] WBC (Bld) [#/Vol] 7.4 10*3/uL Normal 3.6-10.7 [facility] Comment on above: Performed By: #### L AB294 ####Blow Pit Operator: DOMENICA JARA ([id number])[facility] [place] [address] CBC panel Auto (Bld)Ordered By: Callie Steele on 03-02-2025 Erythrocyte distribution width (RBC) [Ratio] 20.1 % High 11.5 - 15.0 % [facility] Hematocrit (Bld) [Volume fraction] 25.4 % Low 40.0 - 52.0 % [facility] Hemoglobin (Bld) [Mass/Vol] 7.7 g/dL Low 13.0 - 18.0 g/dL [facility] Interpretation and review of laboratory results Abnormal [facility] IPF 2 [facility] MCH (RBC) [Entitic mass] 29.7 pg 26. 0 - 34.0 pg [facility] MCHC (RBC) [Mass/Vol] 30.3 % Low 30.5 - 36.0 % [facility] MCV (RBC) [Entitic vol] 98.1 fL 77.0 - 99.0 fL [facility] Platelet mean volume (Bld) [Entitic vol] 9 fL 9.0 - 12.7 fL [facility] Platelets (Bld) [#/Vol] 354 10*3/uL 140 - 440 10*3/uL [facility] RBC (Bld) [#/Vol] 2.59 10*6/uL Low 4.40 - 5.9 0 10*6/uL [facility] WBC (Bld) [#/Vol] 7.4 10*3/uL 3.6 - 10.7 10*3/uL [facility] - Coagulationon 0 03-02-2025 PT Coag (Bld) [Time] 14.7 s High 9.0 - 12.0 s [facility] No Panel Informationon 03-02 Interpretation and review of laboratory results Abnormal [facility] PROTHROMBIN TIMEon INR Coag (PPP) [Relative time] 1.4 {INR} High 0.9-1.1 [facility] Comment on above: Result Comment: Vaughn [...] Myocardial Infarction Performed By: #### Tameka AB320, [id number] ####Blow Pit Operator: DOMENICA JARA ([id number])[facility] ([facility])[address] [place] [address] PT Coag (PPP) [Time] 14.7 s High 9.0-12.0 [facility] Comment on above: Performed By: #### Tameka AB320, [id number] ####Blow Pit Operator: DOMENICA JARA ([phone])[facility])[address] [place] [address] PT Coag (Bld) [Time]on 03-02 INR Coag (PPP) [Relative time] 1.4 {INR} High 0.9 - 1.1 [facility] Progress Noteon 03-02-2025 Progress Note Normal [facility] Progress Note Normal [facility] Progress Note Normal [facility] aPTT Coag (Bld) [Time]on aPTT Coag (PPP) [Time] 68.9 s High 20.0 - 30.5 s [facility] Interpretation and review of laboratory results Abnormal [facility] aPTT Coag (PPP) [Time] 44.7 s High 20.0 - 30.5 s [facility] Interpretation and review of laboratory results Abnormal [facility] aPTT Coag (PPP) [Time] 56.5 s High 20.0 - 30.5 s [facility] Interpretation and review of laboratory results Abnormal [facility] aPTT Coag (PPP) [Time] 44.7 s High 20.0 - 30.5 s [facility] 30on 03-01-2025 30 Normal [facility] [id number] 03-01-2025 [id number] Discharge med list and updated notes transmitted to [facility] via [facility] per TCC request. Normal [facility] [id number] Normal [facility] APTTon 03-01-2025 aPTT Coag (Bld) [Time] 51.3 s High 20.0-30.5 [facility] Comment on above: Result Comment: ARPAN Kaplan COMMENTS:NOTE: The therapeutic time for Heparin anticoagulation, based on Xa activity inhibition, is an APTT of 46-80 seconds. Performed By: #### L AB320, [id number] ####Blow Pit Operator: DOMENICA JARA ([phone])[facility] ([facility])[address] [place] [address] BASIC METABOLIC PANELon Anion gap [Moles/Vol] 13 mmol/L Normal 3-13 [facility] Comment on above: Performed By: #### L AB15 ####Blow Pit Operator: DOMENICA JARA ([phone])[facility] ([facility])[address] [place] [address] Calcium [Mass/Vol] 9.6 mg/dL Normal 8.4-10.2 [facility] Comment on above: Performed By: #### L AB15 ####Blow Pit Operator: DOMENICA JARA ([id number])[facility] ([facility])[address] [place] [address] [place] Chloride [Moles/Vol] 102 mmol/L Normal 98-107 [facility] Comment on above: Performed By: #### L AB15 ####Blow Pit Operator: DOMENICA JARA ([phone])[facility] [place] [address] [place] CO2 [Moles/Vol] 23 mmol/L Normal 22-29 [facility] Comment on above: Performed By: #### L AB15 ####Blow Pit Operator: DOMENICA JARA ([phone])[facility])[address] [place] [address] Creatinine [Mass/Vol] 3.73 mg/dL High 0.72-1.25 [facility] Comment on above: Performed By: #### L AB15 ####Blow Pit Operator: DOMENICA JARA ([phone])[facility])[address] [place] [address] GLOMERULAR FILTRATION RATE ML/MIN/1.73 SQ M.PREDICTED 17.9 mL/min/1.73m*2 Low >60.0 [facility] Comment on above: Result Comment: Calc ulation based on the Chronic Kidney Disease Epidemiology Collaboration (CKD-EPI) equation refit without adjustment for race Performed By: #### L AB15 ####Blow Pit Operator: DOMENICA JARA ([phone])[facility] ([facility])[address] [place] [address] Glucose [Mass/Vol] 87 mg/dL Normal 74-100 [facility] Comment on above: Performed By: #### L AB15 ####Blow Pit Operator: DOMENICA JARA ([phone])[facility])[address] [place] [address] Potassium [Moles/Vol] 5.8 mmol/L High 3.5-5.1 [facility] Comment on above: Result Comment: [facility] potassium values may be up to 0.5 mmol/L lower than serum values. Performed By: #### L AB15 ####Blow Pit Operator: DOMENICA JARA ([id number])[facility])[address] [place] [address] Sodium [Moles/Vol] 138 mmol/L Normal 136-145 [facility] Comment on above: Performed By: #### L AB15 ####Blow Pit Operator: DOMENICA JARA ([phone])[facility])[address] [place] [address] Urea nitrogen [Mass/Vol] 28 mg/dL High 9-23 [facility] Comment on above: Performed By: #### L AB15 ####Blow Pit Operator: DOMENICA JARA ([phone])[facility])[address] [place] [address] Basic metabolic 1998 panelon 03-01-2025 Anion gap [Moles/Vol] 13 mmol/L 3 - 13 mmol/L [facility] Calcium [Mass/Vol] 9.6 mg/dL 8.4 - 10. 2 mg/dL [facility] Chloride [Moles/Vol] 102 mmol/L 98 - 10 7 mmol/L [facility] CO2 [Moles/Vol] 23 mmol/L 22 - 29 mmol/L [facility] Creatinine [Mass/Vol] 3.73 mg/dL High 0.72 - 1.25 mg/dL [facility] GFR/1.73 sq M.predicted (S/P/Bld) [Vol rate/Area] 17.9 mL/min Low - PINF [facility] Glucose [Mass/Vol] 87 mg/dL 74 - 100 mg/dL [facility] Interpretation and review of laboratory results Abnormal [facility] Potassium [Moles/Vol] 5.8 mmol/L High 3.5 - 5.1 mmol/L [facility] Sodium [Moles/Vol] 138 mmol/L 136 - 145 mmol/L [facility] Urea nitrogen [Mass/Vol] 28 mg/dL High 9 - 23 mg/d L [facility] CBC (HEMOGRAM)on 03-01-2025 Erythrocyte distribution width (RBC) [Ratio] 19.7 % High 11.5-15.0 [facility] Comment on above: Performed By: #### L AB294 ####Blow Pit Operator: DOMENICA JARA ([id number])[facility] ([facility])[address] [place] [address] Hematocrit (Bld) [Volume fraction] 26.9 % Low 40.0-52.0 [facility] Comment on above: Performed By: #### L AB294 ####Blow Pit Operator: DOMENICA JARA ([phone])[facility])[address] [place] [address] Hemoglobin (Bld) [Mass/Vol] 8.0 g/dL Low 13.0-18.0 [facility] Comment on above: Performed By: #### L AB294 ####Blow Pit Operator: DOMENICA JARA ([phone])[facility] ([facility])[address] [place] [address] MCH (RBC) [Entitic mass] 28.8 pg Normal 26.0-34.0 [facility] Comment on above: Performed By: #### L [id number] ####Blow Pit Operator: DOMENICA JARA ([phone])[facility])[address] [place] [address] MCHC 29.7 % Low 30.5-36.0 [facility] Comment on above: Performed By: #### L [id number] ####Blow Pit Operator: DOMENICA JARA ([id number])[facility] ([facility])[address] [place] [address] MCV (RBC) [Entitic vol] 96.8 fL Normal 77.0-99.0 [facility] Comment on above: Performed By: #### L AB294 ####Blow Pit Operator: DOMENICA JARA ([phone])[facility] ([facility])[address] [place] [address] Platelet mean volume (Bld) [Entitic vol] 8.7 fL Low 9.0-12.7 [facility] Comment on above: Performed By: #### L [id number] ####Blow Pit Operator: DOMENICA JARA ([id number])[facility] ([facility])[address] [place] [address] Platelets (Bld) [#/Vol] 306 10*3/uL Normal 140-440 [facility] Comment on above: Performed By: #### L [id number] ####Blow Pit Operator: DOMENICA JARA ([phone])[facility] ([facility])[address] [place] [address] RBC (Bld) [#/Vol] 2.78 10*6/uL Low 4.40-5.90 [facility] Comment on above: Performed By: #### L AB294 ####Blow Pit Operator: DOMENICA JARA ([id number])[facility] ([facility])[address] [place] [address] WBC (Bld) [#/Vol] 7.5 10*3/uL Normal 3.6-10.7 [facility] Comment on above: Performed By: #### L [id number] ####Blow Pit Operator: DOMENICA JARA ([id number])[facility] ([facility])[address] [place] [address] CBC panel Auto (Bld)on 03-01 Erythrocyte distribution width (RBC) [Ratio] 19.7 % High 11.5 - 15.0 % [facility] Hematocrit (Bld) [Volume fraction] 26.9 % Low 40.0 - 52.0 % [facility] Hemoglobin (Bld) [Mass/Vol] 8 g/dL Low 13.0 - 18.0 g/dL [facility] Interpretation and review of laboratory results Abnormal [facility] MCH (RBC) [Entitic mass] 28.8 pg 26. 0 - 34.0 pg [facility] MCHC (RBC) [Mass/Vol] 29.7 % Low 30.5 - 36.0 % [facility] MCV (RBC) [Entitic vol] 96.8 fL 77.0 - 99.0 fL [facility] Platelet mean volume (Bld) [Entitic vol] 8.7 fL Low 9.0 - 12.7 fL [facility] Platelets (Bld) [#/Vol] 306 10*3/uL 140 - 440 10*3/uL [facility] RBC (Bld) [#/Vol] 2.78 10*6/uL Low 4.40 - 5.9 0 10*6/uL [facility] WBC (Bld) [#/Vol] 7.5 10*3/uL 3.6 - 10.7 10*3/uL [facility] - Coagulationon 0 03-01-2025 PT Coag (Bld) [Time] 14.3 s High 9.0 - 12.0 s [facility] No Panel Informationon 06-05 -2025 Interpretation and review of laboratory results Abnormal [facility] Nursing Noteon 03-01-2025 Nursing Note Normal [facility] PROTHROMBIN TIMEon INR Coag (PPP) [Relative time] 1.4 {INR} High 0.9-1.1 [facility] Comment on above: Result Comment: Vaughn [...] Myocardial Infarction Performed By: #### Tameka AB320, [id number] ####Blow Pit Operator: DOMENICA JARA ([phone])[address] PT Coag (PPP) [Time] 14.3 s High 9.0-12.0 [facility] Comment on above: Performed By: #### Tameka AB320, [id number] ####Blow Pit Operator: DOMENICA JARA ([id number])[address] PT Coag (Bld) [Time]on 03-01 INR Coag (PPP) [Relative time] 1.4 {INR} High 0.9 - 1.1 [facility] Progress Noteon 03-01-2025 Progress Note Normal [facility] Progress Note Normal [facility] Progress Note Normal [facility] Progress Note Normal [facility] Progress Note PHYSICAL THERAPY [facility] Name/MRN: Jair Snyder ([id number]) Date: 03/01/2025 Leaving for dialysis. Return later time/date for PT. Merlene León, JOY Normal [facility] Progress Note Normal [facility] aPTT Coag (Bld) [Time]on aPTT Coag (PPP) [Time] 51.3 s High 20.0 - 30.5 s [facility] 30on 02-28-2025 30 Normal [facility] 30 Normal [facility] [id number] 02-28-2025 [id number] Auth is back however can not discharge still on hep gtt- auth good thru 03/02- hoping by Wednesday AM . Updated snf . [id number] Transport requested in [employer] in will call per TCC. [phone] Tasked SUBSTANCE ADDICTION COORDINATOR to set up transport in will call, not ready for DC, Auth pending Normal [facility] APTTon 02-28-2025 aPTT Coag (Bld) [Time] 47.7 s High 20.0-30.5 [facility] Comment on above: Result Comment: ARPAN Kaplan COMMENTS:NOTE: The therapeutic time for Heparin anticoagulation, based on Xa activity inhibition, is an APTT of 46-80 seconds. Performed By: #### L AB325, [id number] ####Blow Pit Operator: DOMENICA JARA ([phone])[facility])[address] [place] [address] BASIC METABOLIC PANELon 06-0 Anion gap [Moles/Vol] 11 mmol/L Normal 3-13 [facility] Comment on above: Performed By: #### L AB15 ####Blow Pit Operator: DOMENICA JARA ([id number])[facility] ([facility])[address] [place] [address] Calcium [Mass/Vol] 9.3 mg/dL Normal 8.4-10.2 [facility] Comment on above: Performed By: #### L AB15 ####Blow Pit Operator: DOMENICA JARA ([phone])[facility])[address] [place] [address] Chloride [Moles/Vol] 100 mmol/L Normal 98-107 [facility] Comment on above: Performed By: #### L AB15 ####Blow Pit Operator: DOMENICA JARA ([phone])[facility] ([facility])[address] [place] [address] CO2 [Moles/Vol] 27 mmol/L Normal 22-29 [facility] Comment on above: Performed By: #### L AB15 ####Blow Pit Operator: DOMENICA JARA ([phone])[facility])[address] [place] [address] Creatinine [Mass/Vol] 3.06 mg/dL High 0.72-1.25 [facility] Comment on above: Performed By: #### L AB15 ####Blow Pit Operator: DOMENICA JARA ([phone])[facility])[address] [place] [address] GLOMERULAR FILTRATION RATE ML/MIN/1.73 SQ M.PREDICTED 22.7 mL/min/1.73m*2 Low >60.0 [facility] Comment on above: Result Comment: Calc ulation based on the Chronic Kidney Disease Epidemiology Collaboration (CKD-EPI) equation refit without adjustment for race Performed By: #### L AB15 ####Blow Pit Operator: DOMENICA JARA ([phone])[facility])[address] [place] [address] Glucose [Mass/Vol] 94 mg/dL Normal 74-100 [facility] Comment on above: Performed By: #### L AB15 ####Blow Pit Operator: DOMENICA JARA ([phone])[facility])[address] [place] [address] Potassium [Moles/Vol] 5.0 mmol/L Normal 3.5-5.1 [facility] Comment on above: Result Comment: [facility] potassium values may be up to 0.5 mmol/L lower than serum values. Performed By: #### L AB15 ####Blow Pit Operator: DOMENICA JARA ([phone])[facility])[address] [place] [address] Sodium [Moles/Vol] 138 mmol/L Normal 136-145 [facility] Comment on above: Performed By: #### L AB15 ####Blow Pit Operator: DOMENICA JARA ([phone])[facility])[address] [place] [address] Urea nitrogen [Mass/Vol] 19 mg/dL Normal 9-23 [facility] Comment on above: Performed By: #### L AB15 ####Blow Pit Operator: DOMENICA JARA ([phone])[facility])[address] [place] [address] Basic metabolic 1998 panelon 02-28-2025 Anion gap [Moles/Vol] 11 mmol/L 3 - 13 mmol/L [facility] Calcium [Mass/Vol] 9.3 mg/dL 8.4 - 10. 2 mg/dL [facility] Chloride [Moles/Vol] 100 mmol/L 98 - 10 7 mmol/L [facility] CO2 [Moles/Vol] 27 mmol/L 22 - 29 mmol/L [facility] Creatinine [Mass/Vol] 3.06 mg/dL High 0.72 - 1.25 mg/dL [facility] GFR/1.73 sq M.predicted (S/P/Bld) [Vol rate/Area] 22.7 mL/min Low - PINF [facility] Glucose [Mass/Vol] 94 mg/dL 74 - 100 mg/dL [facility] Interpretation and review of laboratory results Abnormal [facility] Potassium [Moles/Vol] 5 mmol/L 3.5 - 5.1 mmol/L [facility] Sodium [Moles/Vol] 138 mmol/L 136 - 145 mmol/L [facility] Urea nitrogen [Mass/Vol] 19 mg/dL 9 - 23 mg/d L [facility] CBC (HEMOGRAM)on 02-28-2025 Erythrocyte distribution width (RBC) [Ratio] 19.8 % High 11.5-15.0 [facility] Comment on above: Performed By: #### L [id number] ####Blow Pit Operator: DOMENICA JARA ([phone])[facility] ([facility])[address] [place] [address] Hematocrit (Bld) [Volume fraction] 26.9 % Low 40.0-52.0 [facility] Comment on above: Performed By: #### L AB294 ####Blow Pit Operator: DOMENICA JARA ([phone])[facility] ([facility])[address] [place] [address] Hemoglobin (Bld) [Mass/Vol] 8.2 g/dL Low 13.0-18.0 [facility] Comment on above: Performed By: #### L AB294 ####Blow Pit Operator: DOMENICA JARA ([phone])[facility] ([facility])[address] [place] [address] MCH (RBC) [Entitic mass] 29.3 pg Normal 26.0-34.0 [facility] Comment on above: Performed By: #### L AB294 ####Blow Pit Operator: DOMENICA JARA ([phone])[facility])[address] [place] [address] MCHC 30.5 % Normal 30.5-36.0 [facility] Comment on above: Performed By: #### L AB294 ####Blow Pit Operator: DOMENICA JARA ([id number])[facility] ([facility])[address] [place] [address] MCV (RBC) [Entitic vol] 96.1 fL Normal 77.0-99.0 [facility] Comment on above: Performed By: #### L AB294 ####Blow Pit Operator: DOMENICA JARA ([id number])[facility])[address] [place] [address] Platelet mean volume (Bld) [Entitic vol] 9.0 fL Normal 9.0-12.7 [facility] Comment on above: Performed By: #### L AB294 ####Blow Pit Operator: DOMENICA JARA ([id number])[facility])[address] [place] [address] Platelets (Bld) [#/Vol] 324 10*3/uL Normal 140-440 [facility] Comment on above: Performed By: #### L AB294 ####Blow Pit Operator: DOMENICA JARA ([id number])[facility] ([facility])[address] [place] [address] RBC (Bld) [#/Vol] 2.80 10*6/uL Low 4.40-5.90 [facility] Comment on above: Performed By: #### L AB294 ####Blow Pit Operator: DOMENICA JARA ([phone])[facility] ([facility])[address] [place] [address] WBC (Bld) [#/Vol] 8.0 10*3/uL Normal 3.6-10.7 [facility] Comment on above: Performed By: #### L AB294 ####Blow Pit Operator: DOMENICA JARA ([id number])[facility] ([facility])[address] [place] [address] CBC panel Auto (Bld)Ordered By: Giancarlo Lakhani on 02-28-2025 Erythrocyte distribution width (RBC) [Ratio] 19.8 % High 11.5 - 15.0 % [facility] Hematocrit (Bld) [Volume fraction] 26.9 % Low 40.0 - 52.0 % [facility] Hemoglobin (Bld) [Mass/Vol] 8.2 g/dL Low 13.0 - 18.0 g/dL [facility] Interpretation and review of laboratory results Abnormal [facility] MCH (RBC) [Entitic mass] 29.3 pg 26. 0 - 34.0 pg [facility] MCHC (RBC) [Mass/Vol] 30.5 % 30.5 - 36.0 % [facility] MCV (RBC) [Entitic vol] 96.1 fL 77.0 - 99.0 fL [facility] Platelet mean volume (Bld) [Entitic vol] 9 fL 9.0 - 12.7 fL [facility] [employer] Platelets (Bld) [#/Vol] 324 10*3/uL 140 - 440 10*3/uL [facility] RBC (Bld) [#/Vol] 2.8 10*6/uL Low 4.40 - 5.9 0 10*6/uL [facility] WBC (Bld) [#/Vol] 8 10*3/uL 3.6 - 10.7 10*3/uL [facility] - Coagulationon 0 02-28-2025 PT Coag (Bld) [Time] 14 s High 9.0 - 12.0 s [facility] No Panel Informationon 02-28 Interpretation and review of laboratory results Abnormal [facility] Nursing Noteon 02-28-2025 Nursing Note Normal [facility] PROTHROMBIN TIMEon INR Coag (PPP) [Relative time] 1.3 {INR} High 0.9-1.1 [facility] Comment on above: Result Comment: Vaughn [...] Myocardial Infarction Performed By: #### Tameka AB325, [id number] ####Blow Pit Operator: DOMENICA JARA ([id number])[facility] ([facility])[address] [place] [address] PT Coag (PPP) [Time] 14.0 s High 9.0-12.0 [facility] Comment on above: Performed By: #### Tameka AB325, [id number] ####Blow Pit Operator: DOMENICA JARA ([phone])[facility] ([facility] [place] [address] [place] PT Coag (Bld) [Time]on 02-28 INR Coag (PPP) [Relative time] 1.3 {INR} High 0.9 - 1.1 [facility] Progress Noteon 02-28-2025 Progress Note Normal [facility] Progress Note Normal [facility] Progress Note Normal [facility] Progress Note Normal [facility] aPTT Coag (Bld) [Time]on aPTT Coag (PPP) [Time] 47.7 s High 20.0 - 30.5 s [facility] 30on 02-27-2025 30 Normal [facility] 30 Normal [facility] [id number] 02-27-2025 [id number] Normal [facility] APTTon 02-27-2025 aPTT Coag (Bld) [Time] 55.6 s High 20.0-30.5 [facility] Comment on above: Result Comment: ARPAN Kaplan COMMENTS:NOTE: The therapeutic time for Heparin anticoagulation, based on Xa activity inhibition, is an APTT of 46-80 seconds. Performed By: #### L AB325, [id number] ####Blow Pit Operator: DOMENICA JARA ([phone])[facility] ([facility])[address] [place] [address] Bacteria identified Cx Nom ( Bld)on 02-27-2025 Interpretation and review of laboratory results Normal [facility] Interpretation and review of laboratory results Normal [facility] CBC (HEMOGRAM)on 02-27-2025 Erythrocyte distribution width (RBC) [Ratio] 19.5 % High 11.5-15.0 [facility] Comment on above: Performed By: #### L AB294 ####Blow Pit Operator: DOMENICA JARA ([phone])[facility])[address] [place] [address] Hematocrit (Bld) [Volume fraction] 28.8 % Low 40.0-52.0 [facility] Comment on above: Performed By: #### L AB294 ####Blow Pit Operator: DOMENICA JARA ([phone])[facility] ([facility])[address] [place] [address] Hemoglobin (Bld) [Mass/Vol] 8.6 g/dL Low 13.0-18.0 [facility] Comment on above: Performed By: #### L AB294 ####Blow Pit Operator: DOMENICA JARA ([phone])[facility])[address] [place] [address] MCH (RBC) [Entitic mass] 28.7 pg Normal 26.0-34.0 [facility] Comment on above: Performed By: #### L AB294 ####Blow Pit Operator: DOMENICA JARA ([id number])[facility] ([facility])[address] [place] [address] MCHC 29.9 % Low 30.5-36.0 [facility] Comment on above: Performed By: #### L AB294 ####Blow Pit Operator: DOMENICA JARA ([phone])[facility] ([facility])[address] [place] [address] MCV (RBC) [Entitic vol] 96.0 fL Normal 77.0-99.0 [facility] Comment on above: Performed By: #### L AB294 ####Blow Pit Operator: DOMENICA JARA ([id number])[facility] ([facility])[address] [place] [address] Platelet mean volume (Bld) [Entitic vol] 8.9 fL Low 9.0-12.7 [facility] Comment on above: Performed By: #### L AB294 ####Blow Pit Operator: DOMENICA JARA ([id number])[facility] ([facility])[address] [place] [address] Platelets (Bld) [#/Vol] 302 10*3/uL Normal 140-440 [facility] Comment on above: Performed By: #### L AB294 ####Blow Pit Operator: DOMENICA JARA ([phone])[facility] ([facility])[address] [place] [address] RBC (Bld) [#/Vol] 3.00 10*6/uL Low 4.40-5.90 [facility] Comment on above: Performed By: #### L AB294 ####Blow Pit Operator: DOMENICA JARA ([id number])[facility] ([facility])[address] [place] [address] WBC (Bld) [#/Vol] 7.9 10*3/uL Normal 3.6-10.7 [facility] Comment on above: Performed By: #### L AB294 ####Blow Pit Operator: DOMENICA JARA ([id number])[facility] ([facility])[address] [place] [address] CBC panel Auto (Bld)Ordered By: Brandy Ross on 02-27-2025 Erythrocyte distribution width (RBC) [Ratio] 19.5 % High 11.5 - 15.0 % [facility] Hematocrit (Bld) [Volume fraction] 28.8 % Low 40.0 - 52.0 % [facility] Hemoglobin (Bld) [Mass/Vol] 8.6 g/dL Low 13.0 - 18.0 g/dL [facility] Interpretation and review of laboratory results Abnormal [facility] MCH (RBC) [Entitic mass] 28.7 pg 26. 0 - 34.0 pg [facility] MCHC (RBC) [Mass/Vol] 29.9 % Low 30.5 - 36.0 % [facility] MCV (RBC) [Entitic vol] 96 fL 77.0 - 99.0 fL [facility] Platelet mean volume (Bld) [Entitic vol] 8.9 fL Low 9.0 - 12.7 fL [facility] Platelets (Bld) [#/Vol] 302 10*3/uL 140 - 440 10*3/uL [facility] RBC (Bld) [#/Vol] 3 10*6/uL Low 4.40 - 5.9 0 10*6/uL [facility] WBC (Bld) [#/Vol] 7.9 10*3/uL 3.6 - 10.7 10*3/uL [facility] ECG 12-LEADon 02-27-2025 ECG 12-LEAD IMPRESSION: Sinus rhythm Left atrial enlargement RBBB and LPFB Abnrm T, consider ischemia, anterolateral lds Compared to ECG 01/19/2025 06:31:48 Prolonged QT interval no longer present Electronically Signed On 02-27-2025 16:08:17 EDT by Ochoa Guido Normal [facility] System [facility] Laboratory - Coagulationon 0 02-27-2025 PT Coag (Bld) [Time] 13.7 s High 9.0 - 12.0 s [facility] Laboratory - Microbiology an d Antimicrobial susceptibilityon 02-27-2025 Bacteria identified Cx Nom (Bld) No growth at 5 days [facility] Bacteria identified Cx Nom (Bld) No growth at 5 days [facility] No Panel InformationOrdered By: Ochoa Guido on 02-27-2025 P [place] 76 degrees [facility] Work Phone: IA Interval 150 ms [facility] Work Phone: QRS [place] 92 degrees [facility] Work Phone: QRSD Interval 124 ms [facility] Work Phone: QT Interval 417 ms [facility] Work Phone: QTC Interval 482 ms [facility] Work Phone: T Wave [place] 95 degrees [facility] Work Phone: [facility] Work Phone: No Panel Informationon 02-27 CV EPIPHANY [facility] Interpretation and review of laboratory results Abnormal [facility] Nursing Noteon 02-27-2025 Nursing Note Normal [facility] Nursing Note Normal [facility] PROTHROMBIN TIMEon INR Coag (PPP) [Relative time] 1.3 {INR} High 0.9-1.1 [facility] Comment on above: Result Comment: Vaughn [...] Myocardial Infarction Performed By: #### Tameka AB325, [id number] ####Blow Pit Operator: DOMENICA JARA ([phone])[facility] ([facility])[address] [place] [address] [place] PT Coag (PPP) [Time] 13.7 s High 9.0-12.0 [facility] Comment on above: Performed By: #### Tameka AB325, [id number] ####Blow Pit Operator: DOMENICA JARA ([phone])[facility] ([facility])[address] [place] [address] [place] PT Coag (Bld) [Time]on 02-27 INR Coag (PPP) [Relative time] 1.3 {INR} High 0.9 - 1.1 [facility] Progress Noteon 02-27-2025 Progress Note Normal [facility] Progress Note Normal [facility] Progress [facility] Normal [facility] Progress [facility] Normal [facility] Progress Note Normal [facility] Progress Note Normal [facility] Vital signsOrdered By: Ochoa Guido on 02-27-2025 Heart rate 80 /min bpm [facility] Work Phone: aPTT Coag (Bld) [Time]on aPTT Coag (PPP) [Time] 55.6 s High 20.0 - 30.5 s [facility] 30on 02-26-2025 30 Normal [facility] [id number] 02-26-2025 [id number] Normal [facility] [id number] 02-26-2025 [id number] Getting updated therapy notes. Want to skill him at [facility]. Started on IV antibiotics for aspiration pneumonia. Continues on a heparin gtt. . [phone] Updated [facility] per [facility] request. Await review and response regarding ability to accept. TCC notified. 36on 02-26-2025 36 CBC W/Diff, Automatedon 06-0 Absolute Neut Normal 2.0-7.7 [facility] Comment on above: Order Comment: 413-2 Result Comment: KIMBER ENT DISCHARGED Performed By: #### L 500.4050, L100.0100, L300.3900 #### [facility] [address] [place], [address] HCT Normal 40-54 [facility] Comment on above: Order Comment: 413-2 Result Comment: KIMBER ENT DISCHARGED Performed By: #### L 500.4050, L100.0100, L300.3900 #### [facility] [address] [place], [address] HGB Normal 13.0-16.5 [facility] Comment on above: Order Comment: 413-2 Result Comment: KIMBER ENT DISCHARGED Performed By: #### L 500.4050, L100.0100, L300.3900 #### [facility] [facility] [address] [place], [address] MCH Normal 27.0-32.0 [facility] Comment on above: Order Comment: 413-2 Result Comment: KIMBER ENT DISCHARGED Performed By: #### L 500.4050, L100.0100, L300.3900 #### [facility] [address] [place], [address] MCHC Normal 32-36 [facility] Comment on above: Order Comment: 413-2 Result Comment: KIMBER ENT DISCHARGED Performed By: #### L 500.4050, L100.0100, L300.3900 #### [facility] [address] [place], [address] MCV Normal 80-94 [facility] Comment on above: Order Comment: 413-2 Result Comment: KIMBER ENT DISCHARGED Performed By: #### L 500.4050, L100.0100, L300.3900 #### [facility] [address] [place], [address] NEUT% Normal 47-70 [facility] Comment on above: Order Comment: 413-2 Result Comment: KIMBER ENT DISCHARGED Performed By: #### L 500.4050, L100.0100, L300.3900 #### [facility] [address] [place], [address] PLT Normal 150-450 [facility] Comment on above: Order Comment: 413-2 Result Comment: KIMBER ENT DISCHARGED Performed By: #### L 500.4050, L100.0100, L300.3900 #### [facility] [address] [place], [address] RBC Normal 4.6-6.2 [facility] Comment on above: Order Comment: 413-2 Result Comment: KIMBER ENT DISCHARGED Performed By: #### L 500.4050, L100.0100, L300.3900 #### [facility] [address] [place], [address] RDW CV Normal 11.6-14.6 [facility] Comment on above: Order Comment: 413-2 Result Comment: KIMBER ENT DISCHARGED Performed By: #### L 500.4050, L100.0100, L300.3900 #### [facility] [address] [place], [address] RDW SD Normal 35.1-43.9 [facility] Comment on above: Order Comment: 413-2 Result Comment: KIMBER ENT DISCHARGED Performed By: #### L 500.4050, L100.0100, L300.3900 #### [facility] [address] [place], [address] WBC Normal 4.4-11.0 [facility] Comment on above: Order Comment: 413-2 Result Comment: KIMBER ENT DISCHARGED Performed By: #### L 500.4050, L100.0100, L300.3900 #### [facility] [address] [place], [address] Comprehensive Metabolic Prof ilon 02-26-2025 ALB Normal 3.5-5.0 [facility] Comment on above: Order Comment: 413-2 Result Comment: KIMBER ENT DISCHARGED Performed By: #### L 500.4050, L100.0100, L300.3900 #### [facility] [address] [place], [address] ALK PHOS Normal 40-129 [facility] Comment on above: Order Comment: 413-2 Result Comment: KIMBER ENT DISCHARGED Performed By: #### L 500.4050, L100.0100, L300.3900 #### [facility] [address] [place], [address] ALT Normal <=46 [facility] Comment on above: Order Comment: 413-2 Result Comment: KIMBER ENT DISCHARGED Performed By: #### L 500.4050, L100.0100, L300.3900 #### [facility] [address] [place], [address] AST Normal <=37 [facility] Comment on above: Order Comment: 413-2 Result Comment: KIMBER ENT DISCHARGED Performed By: #### L 500.4050, L100.0100, L300.3900 #### [facility] [address] [place], [address] BUN Normal 4-19 [facility] Comment on above: Order Comment: 413-2 Result Comment: KIMBER ENT DISCHARGED Performed By: #### L 500.4050, L100.0100, L300.3900 #### [facility] [address] [place], [address] BUN/CRE Normal 10-20 [facility] Comment on above: Order Comment: 413-2 Result Comment: KIMBER ENT DISCHARGED Performed By: #### L 500.4050, L100.0100, L300.3900 #### [facility] [address] [place], [address] Calcium Normal 7.6-11.0 [facility] Comment on above: Order Comment: 413-2 Result Comment: KIMBER ENT DISCHARGED Performed By: #### L 500.4050, L100.0100, L300.3900 #### [facility] [address] [place], [address] CL Normal 98-108 [facility] Comment on above: Order Comment: 413-2 Result Comment: KIMBER ENT DISCHARGED Performed By: #### L 500.4050, L100.0100, L300.3900 #### [facility] [address] [place], [address] CO2 Normal 21.0-32.0 [facility] Comment on above: Order Comment: 413-2 Result Comment: KIMBER ENT DISCHARGED Performed By: #### L 500.4050, L100.0100, L300.3900 #### [facility] [address] [place], [address] CREAT,SERUM Normal 0.70-1.20 [facility] Comment on above: Order Comment: 413-2 Result Comment: KIMBER ENT DISCHARGED Performed By: #### L 500.4050, L100.0100, L300.3900 #### [facility] [address] [place], [address] eGFR Normal >60 [facility] Comment on above: Order Comment: 413-2 Result Comment: KIMBER ENT DISCHARGED Performed By: #### L 500.4050, L100.0100, L300.3900 #### [facility] [address] [place], [address] GAP Normal 5-15 [facility] Comment on above: Order Comment: 413-2 Result Comment: KIMBER ENT DISCHARGED Performed By: #### L 500.4050, L100.0100, L300.3900 #### [facility] [address] [place], [address] GLU Normal 70-99 [facility] Comment on above: Order Comment: 413-2 Result Comment: KIMBER ENT DISCHARGED Performed By: #### L 500.4050, L100.0100, L300.3900 #### [facility] [address] [place], [address] Potassium Normal 3.3-5.1 [facility] Comment on above: Order Comment: 413-2 Result Comment: KIMBER ENT DISCHARGED Performed By: #### L 500.4050, L100.0100, L300.3900 #### [facility] [address] [place], [address] T BILI Normal 0.00-1.30 [facility] Comment on above: Order Comment: 413-2 Result Comment: KIMBER ENT DISCHARGED Performed By: #### L 500.4050, L100.0100, L300.3900 #### [facility] [address] [place], [address] T PROT Normal 5.9-8.4 [facility] Comment on above: Order Comment: 413-2 Result Comment: KIMBER ENT DISCHARGED Performed By: #### L 500.4050, L100.0100, L300.3900 #### [facility] [address] [place], [address] Comprehensive Metabolic Profil Normal 133-145 [facility] Comment on above: Order Comment: 413-2 Result Comment: KIMBER ENT DISCHARGED Performed By: #### L 500.4050, L100.0100, L300.3900 #### [facility] [address] [place], [address] HIGH SENSITIVITY TROPONIN, S ERIAL, SECOND TESTon 02-26-2025 2H TROPONIN HS (SERIAL 2ND TROPONIN) 80 ng/L High <=35 [facility] Comment on above: Result Comment: 2h t roponin (2nd troponin) samples collected between 1h 40 min and 2h and 20 min of the baseline collection time can be utilized to interpret delta troponins as per [facility] algorithms. Samples collected outside this timeframe need to be interpreted clinically.Rising or falling troponin delta between 2 ??? 15 ng/L as compared to baseline value requires a 3rd serial troponin Performed By: #### L [id number] ####Blow Pit Operator: DOMENICA JARA ([id number])[facility] ([facility])[address] [place] [address] HIGH SENSITIVITY TROPONIN, S ERIAL, THIRD TESTon 02-26-2025 4H TROPONIN HS (SERIAL 3RD TROPONIN) 75 ng/L High <=35 [facility] Comment on above: Result Comment: 4h t roponin (3rd troponin) samples collected between 1h 40 min and 2h and 20 min of the 2h troponin collection time can be utilized to interpret delta troponins as per [facility] algorithms. Samples collected outside this timeframe need to be interpreted clinically.Rising or falling troponin delta between 2 ??? 15 ng/L as compared to 2h troponin valuerequires further evaluation. Performed By: #### L [id number] ####Blow Pit Operator: DOMENICA JARA ([id number])[facility] ([facility])[address] [place] [address] Laboratory - Coagulationon 0 02-26-2025 PT Coag (Bld) [Time] 13.5 s High 9.0 - 12.0 s [facility] No Panel Informationon 02-26 4h Troponin HS (Serial 3rd Troponin) 75 ng/L [facility] Interpretation and review of laboratory results Abnormal [facility] 2h Troponin HS (Serial 2nd Troponin) 80 ng/L High [facility]/L [facility] Interpretation and review of laboratory results Abnormal [facility] Interpretation and review of laboratory results Abnormal [facility] Troponin HS Serial Baseline 84 ng/L High NINF - 35 ng/L [facility] Interpretation and review of laboratory results Abnormal [facility] PT Coag (Bld) [Time]on 02-26 INR Coag (PPP) [Relative time] 1.3 {INR} High 0.9 - 1.1 [facility] Progress Noteon 02-26-2025 Progress [facility] Progress [facility] Normal [facility] Progress Note Normal [facility] Progress Note Normal [facility] Prothrombin Time w/INRon INR Normal [facility] Comment on above: Order Comment: 413-2 Result Comment: KIMBER ENT DISCHARGED Performed By: #### L 500.4050, L100.0100, L300.3900 #### [facility] [address] [place], [address] PROTIME Normal 11.7-14.9 [facility] Comment on above: Order Comment: 413-2 Result Comment: KIMBER ENT DISCHARGED Performed By: #### L 500.4050, L100.0100, L300.3900 #### [facility] [address] [place], [address] aPTT Coag (Bld) [Time]on aPTT Coag (PPP) [Time] 48.2 s High 20.0 - 30.5 s [facility] 30on 02-25-2025 30 Normal [facility] 30 Normal [facility] APTTon 02-25-2025 aPTT Coag (Bld) [Time] 48.2 s High 20.0-30.5 [facility] Comment on above: Result Comment: ARPAN Kaplan COMMENTS:NOTE: The therapeutic time for Heparin anticoagulation, based on Xa activity inhibition, is an APTT of 46-80 seconds. Performed By: #### Tameka AB325, [id number] ####Blow Pit Operator: DOMENICA JAAR ([phone])[facility] ([facility])[address] [place] [address] aPTT Coag (Bld) [Time] 49.5 s High 20.0-30.5 [facility] Comment on above: Result Comment: ARPAN Kaplan COMMENTS:NOTE: The therapeutic time for Heparin anticoagulation, based on Xa activity inhibition, is an APTT of 46-80 seconds. Performed By: #### L AB325, [id number] ####Blow Pit Operator: DOMENICA JARA ([phone])[facility] [place] [address] CBC (HEMOGRAM)on 02-25-2025 Erythrocyte distribution width (RBC) [Ratio] 19.9 % High 11.5-15.0 [facility] Comment on above: Performed By: #### L [id number] ####Blow Pit Operator: DOMENICA JARA ([id number])[facility] ([facility] [place] [address] [place] Hematocrit (Bld) [Volume fraction] 24.1 % Low 40.0-52.0 [facility] Comment on above: Performed By: #### L [id number] ####Blow Pit Operator: DOMENICA JARA ([phone])[facility])[address] [place] [address] Hemoglobin (Bld) [Mass/Vol] 7.6 g/dL Low 13.0-18.0 [facility] Comment on above: Performed By: #### L [id number] ####Blow Pit Operator: DOMENICA JARA ([id number])[facility] ([facility])[address] [place] [address] MCH (RBC) [Entitic mass] 29.3 pg Normal 26.0-34.0 [facility] Comment on above: Performed By: #### L AB294 ####Blow Pit Operator: DOMENICA JARA ([phone])[facility])[address] [place] [address] MCHC 31.5 % Normal 30.5-36.0 [facility] Comment on above: Performed By: #### L [id number] ####Blow Pit Operator: DOMENICA JARA ([phone])[facility])[address] [place] [address] MCV (RBC) [Entitic vol] 93.1 fL Normal 77.0-99.0 [facility] Comment on above: Performed By: #### L [id number] ####Blow Pit Operator: DOMENICA JARA ([phone])[facility])[address] [place] [address] Platelet mean volume (Bld) [Entitic vol] 8.9 fL Low 9.0-12.7 [facility] Comment on above: Performed By: #### L [id number] ####Blow Pit Operator: DOMENICA JARA ([id number])[facility])[address] [place] [address] Platelets (Bld) [#/Vol] 280 10*3/uL Normal 140-440 [facility] Comment on above: Performed By: #### L [id number] ####Blow Pit Operator: DOMENICA JARA ([id number])[facility])[address] [place] [address] RBC (Bld) [#/Vol] 2.59 10*6/uL Low 4.40-5.90 [facility] Comment on above: Performed By: #### L [id number] ####Blow Pit Operator: DOMENICA JARA ([id number])[facility])[address] [place] [address] WBC (Bld) [#/Vol] 7.5 10*3/uL Normal 3.6-10.7 [facility] Comment on above: Performed By: #### L [id number] ####Blow Pit Operator: DOMENICA JARA ([phone])[facility])[address] [place] [address] CBC panel Auto (Bld)on 02-25 Erythrocyte distribution width (RBC) [Ratio] 19.9 % High 11.5 - 15.0 % [facility] Hematocrit (Bld) [Volume fraction] 24.1 % Low 40.0 - 52.0 % [facility] Hemoglobin (Bld) [Mass/Vol] 7.6 g/dL Low 13.0 - 18.0 g/dL [facility] Interpretation and review of laboratory results Abnormal [facility] MCH (RBC) [Entitic mass] 29.3 pg 26. 0 - 34.0 pg [facility] MCHC (RBC) [Mass/Vol] 31.5 % 30.5 - 36.0 % [facility] MCV (RBC) [Entitic vol] 93.1 fL 77.0 - 99.0 fL [facility] Platelet mean volume (Bld) [Entitic vol] 8.9 fL Low 9.0 - 12.7 fL [facility] Platelets (Bld) [#/Vol] 280 10*3/uL 140 - 440 10*3/uL [facility] RBC (Bld) [#/Vol] 2.59 10*6/uL Low 4.40 - 5.9 0 10*6/uL [facility] WBC (Bld) [#/Vol] 7.5 10*3/uL 3.6 - 10.7 10*3/uL [facility] HIGH SENSITIVITY TROPONIN, S ERIAL BASELINEon 02-25-2025 TROPONIN HS SERIAL BASELINE 84 ng/L High <=35 [facility] Comment on above: Result Comment: In i ndividuals presenting with symptoms > 2h, a baseline troponin <= 5 ng/L suggests acutecardiac injury is unlikely and further serial testing is generally not indicated. Performed By: #### L [id number] ####Blow Pit Operator: DOMENICA JARA ([id number])[facility] ([facility])[address] [place] [address] Laboratory - Coagulationon 0 02-25-2025 PT Coag (Bld) [Time] 13.7 s High 9.0 - 12.0 s [facility] No Panel Informationon 02-25 Interpretation and review of laboratory results Abnormal [facility] Nursing Noteon 02-25-2025 Nursing Note 2322- Notified Dr. Hathaway of patient complaint of SOB and worsening chest pain that he described as dull and tight. Vitals WDL. STAT EKG ordered, patient given Nitrostat, and troponin sent down. 2330- Notified BEHAVIOR ANALYST to assess the patient. Normal [facility] PROTHROMBIN TIMEon INR Coag (PPP) [Relative time] 1.3 {INR} High 0.9-1.1 [facility] Comment on above: Result Comment: Vaughn [...] Myocardial Infarction Performed By: #### L AB325, [id number] ####Blow Pit Operator: DOMENICA JARA ([phone])[facility] ([facility])[address] [place] [address] PT Coag (PPP) [Time] 13.5 s High 9.0-12.0 [facility] Comment on above: Performed By: #### L AB325, [id number] ####Blow Pit Operator: DOMENICA JARA ([id number])[address] INR Coag (PPP) [Relative time] 1.3 {INR} High 0.9-1.1 [facility] Comment on above: Result Comment: Vaughn [...] Myocardial Infarction Performed By: #### Tameka AB325, [id number] ####Blow Pit Operator: DOMENICA JARA ([phone])[facility])[address] [place] [address] PT Coag (PPP) [Time] 13.7 s High 9.0-12.0 [facility] Comment on above: Performed By: #### Tameka AB325, [id number] ####Blow Pit Operator: DOMENICA JARA ([id number])[address] PT Coag (Bld) [Time]on 02-25 INR Coag (PPP) [Relative time] 1.3 {INR} High 0.9 - 1.1 [facility] Progress Noteon 02-25-2025 Progress Note Normal [facility] Progress Note Normal [facility] Progress Note Normal [facility] Progress Note [facility] aPTT Coag (Bld) [Time]on aPTT Coag (PPP) [Time] 49.5 s High 20.0 - 30.5 s [facility] 30on 02-24-2025 30 Normal [facility] 30 Normal [facility] APTTon 02-24-2025 aPTT Coag (Bld) [Time] 54.7 s High 20.0-30.5 [facility] Comment on above: Result Comment: ARPAN Kaplan COMMENTS:NOTE: The therapeutic time for Heparin anticoagulation, based on Xa activity inhibition, is an APTT of 46-80 seconds. Performed By: #### L AB325 ####Blow Pit Operator: DOMENICA JARA ([id number])[address] aPTT Coag (Bld) [Time] 61.0 s High 20.0-30.5 [facility] Comment on above: Result Comment: ARPAN Kaplan COMMENTS:NOTE: The therapeutic time for Heparin anticoagulation, based on Xa activity inhibition, is an APTT of 46-80 seconds. Performed By: #### L AB320, [id number] ####Blow Pit Operator: DOMENICA JARA ([phone])[address] Bacteria identified Aer cx N om (Lower resp)Ordered By: Corey Pabon on 02-24-2025 Gram Stain Result Many Polymorphonuclear leukocytes per low power field Abnormal [facility] Gram Stain Result Few Epithelial cells per low power field Abnormal [facility] Gram Stain Result Positive Ab[facility] Gram Stain Result Negative [facility] Gram Stain Result Few Yeast Ab[facility] Interpretation and review of laboratory results Abnormal [facility] HBV surface Ab IA Qnon 02-24 [facility] HBV surface Ag IA Qlon 02-24 Interpretation and review of laboratory results Normal [facility] HEPATITIS B SURFACE ANTIBODY on 02-24-2025 HEPATITIS B VIRUS SURFACE AB <8.0 Normal [facility] Comment on above: Result Comment: ARPAN Kaplan COMMENTS:Interpretation:<8.0 Non-Reactive8.0-11.9 Equivocal>= 12.0 Ab DetectedNote: If an equivocal result is interpreted, an antibody status is unable to be determined. Collect new specimen if clinically indicated. Performed By: #### L [id number], [id number] ####Blow Pit Operator: DOMENICA JARA ([phone])[facility])[address] [place] [address] HEPATITIS B SURFACE ANTIGENo n 02-24-2025 HEPATITIS B VIRUS SURFACE AG Not detected Normal Not Detected [facility] Comment on above: Performed By: #### L AB472, [id number] ####Blow Pit Operator: DOMENICA JARA ([id number])[facility] ([facility])[address] [place] [address] Laboratory - Coagulationon 0 02-24-2025 PT Coag (Bld) [Time] 13.5 s High 9.0 - 12.0 s [facility] Laboratory - Drug toxicology on 02-24-2025 Vancomycin trough [Mass/Vol] 23.4 ug/mL [facility] Laboratory - Microbiology an d Antimicrobial susceptibilityon 02-24-2025 HBV surface Ab IA Qn mIU/mL [facility] HBV surface Ag IA Ql Not detected Not Detected [facility] Laboratory - Microbiology an d Antimicrobial susceptibilityOrdered By: Corey Pabon on 02-24-2025 Bacteria identified Aer cx Nom (Lower resp) Few respiratory ila present. [facility] Bacteria identified Aer cx Nom (Lower resp) Moderate Klebsiella oxytoca Abnormal [facility] No Panel Informationon 02-24 [facility] Interpretation and review of laboratory results Abnormal [facility] Nursing Noteon 02-24-2025 Nursing Note Normal [facility] PROTHROMBIN TIMEon INR Coag (PPP) [Relative time] 1.3 {INR} High 0.9-1.1 [facility] Comment on above: Result Comment: Vaughn [...] Myocardial Infarction Performed By: #### L AB320, [id number] ####Blow Pit Operator: DOMENICA JARA ([phone])[facility] ([facility])[address] [place] [address] PT Coag (PPP) [Time] 13.5 s High 9.0-12.0 [facility] Comment on above: Performed By: #### L AB320, [id number] ####Blow Pit Operator: DOMENICA JARA ([id number])[facility] ([facility])[address] [place] [address] PT Coag (Bld) [Time]on 02-24 INR Coag (PPP) [Relative time] 1.3 {INR} High 0.9 - 1.1 [facility] Progress Noteon 02-24-2025 Progress Note Vancomycin therapy has been discontinued by Hussain Quintana on 02/24. Thank you for the consult. Pharmacy signing off for vancomycin dosing. Marissa Iglesias, PharmD, Date: 02/24/25 Time: 4:08 PM Normal [facility] Progress Note Normal [facility] Progress Note Normal [facility] Progress [facility] Normal [facility] Progress Note Normal [facility] VANCOMYCIN, AUC TIMED DOSING on 02-24-2025 VANCOMYCIN, AUC 23.4 ug/mL [facility] Comment on above: Result Comment: ORDE R COMMENTS:Please draw random level at least >4 hours after the end of hemodialysis.Toxicity is seen at concentrations >80-100 ug/mLTherapeutic (Peak) range: 20-40Therapeutic (Trough) range: 5-10 Performed By: #### L AB39 ####Blow Pit Operator: DOMENICA JARA ([phone])[facility] ([facility])[address] [place] [address] Vancomycin trough [Mass/Vol] on 02-24-2025 [facility] aPTT Coag (Bld) [Time]on aPTT Coag (PPP) [Time] 54.7 s High 20.0 - 30.5 s [facility] Interpretation and review of laboratory results Abnormal [facility] aPTT Coag (PPP) [Time] 61 s High 20.0 - 30.5 s [facility] [id number] 02-23-2025 [id number] Normal [facility] 36on 02-23-2025 36 Called LM to call back and schedule CT and hospital follow up with any ARMIN Normal [facility] 36 Hello, can we please schedule a 6-week CT scan for this patient and a follow-up appointment after this? Thank you Normal [facility] APTTon 02-23-2025 aPTT Coag (Bld) [Time] 49.3 s High 20.0-30.5 [facility] Comment on above: Result Comment: ARPAN Kaplan COMMENTS:NOTE: The therapeutic time for Heparin anticoagulation, based on Xa activity inhibition, is an APTT of 46-80 seconds. Performed By: #### L AB325, [id number] ####Blow Pit Operator: DOMENICA JARA ([phone])[facility])[address] [place] [address] CBC (HEMOGRAM)on 02-23-2025 Erythrocyte distribution width (RBC) [Ratio] 19.7 % High 11.5-15.0 [facility] Comment on above: Performed By: #### L [id number] ####Blow Pit Operator: DOMENICA JARA ([phone])[facility])[address] [place] [address] Hematocrit (Bld) [Volume fraction] 27.9 % Low 40.0-52.0 [facility] Comment on above: Performed By: #### L [id number] ####Blow Pit Operator: DOMENICA JARA ([id number])[address] Hemoglobin (Bld) [Mass/Vol] 8.6 g/dL Low 13.0-18.0 [facility] Comment on above: Performed By: #### L [id number] ####Blow Pit Operator: DOMENICA [id number])[address] MCH (RBC) [Entitic mass] 28.7 pg Normal 26.0-34.0 [facility] Comment on above: Performed By: #### L [id number] ####Blow Pit Operator: DOMENICA [id number])[facility] ([facility])[address] [place] [address] MCHC 30.8 % Normal 30.5-36.0 [facility] Comment on above: Performed By: #### L [id number] ####Blow Pit Operator: DOMENICA JARA ([phone])[facility] ([facility])[address] [place] [address] MCV (RBC) [Entitic vol] 93.0 fL Normal 77.0-99.0 [facility] Comment on above: Performed By: #### L [id number] ####Blow Pit Operator: DOMENICA JARA ([id number])[facility] ([facility])[address] [place] [address] Platelet mean volume (Bld) [Entitic vol] 8.9 fL Low 9.0-12.7 [facility] Comment on above: Performed By: #### L [id number] ####Blow Pit Operator: DOMENICA JARA ([id number])[facility] ([facility])[address] [place] [address] Platelets (Bld) [#/Vol] 316 10*3/uL Normal 140-440 [facility] Comment on above: Performed By: #### L [id number] ####Blow Pit Operator: DOMENICA JARA ([id number])[facility] ([facility])[address] [place] [address] RBC (Bld) [#/Vol] 3.00 10*6/uL Low 4.40-5.90 [facility] Comment on above: Performed By: #### L [id number] ####Blow Pit Operator: DOMENICA JARA ([phone])[facility] ([facility])[address] [place] [address] WBC (Bld) [#/Vol] 8.6 10*3/uL Normal 3.6-10.7 [facility] Comment on above: Performed By: #### L AB294 ####Blow Pit Operator: DOMENICA JARA ([id number])[facility] ([facility])[address] [place] [address] CBC panel Auto (Bld)on 02-23 Erythrocyte distribution width (RBC) [Ratio] 19.7 % High 11.5 - 15.0 % [facility] Hematocrit (Bld) [Volume fraction] 27.9 % Low 40.0 - 52.0 % [facility] Hemoglobin (Bld) [Mass/Vol] 8.6 g/dL Low 13.0 - 18.0 g/dL [facility] Interpretation and review of laboratory results Abnormal [facility] MCH (RBC) [Entitic mass] 28.7 pg 26. 0 - 34.0 pg [facility] MCHC (RBC) [Mass/Vol] 30.8 % 30.5 - 36.0 % [facility] MCV (RBC) [Entitic vol] 93 fL 77.0 - 99.0 fL [facility] Platelet mean volume (Bld) [Entitic vol] 8.9 fL Low 9.0 - 12.7 fL [facility] Platelets (Bld) [#/Vol] 316 10*3/uL 140 - 440 10*3/uL [facility] RBC (Bld) [#/Vol] 3 10*6/uL Low 4.40 - 5.9 0 10*6/uL [facility] WBC (Bld) [#/Vol] 8.6 10*3/uL 3.6 - 10.7 10*3/uL [facility] COMPREHENSIVE METABOLIC PANE Victor M 02-23-2025 Albumin [Mass/Vol] 1.9 g/dL Low 3.5-5.0 [facility] Comment on above: Performed By: #### L ABAruna, LAB17, [id number] ####Blow Pit Operator: DOMENICA JARA ([id number])[facility] ([facility])[address] [place] [address] ALP [Catalytic activity/Vol] 136 U/L Normal 40-150 [facility] Comment on above: Performed By: #### L ABAruna, LAB17, [id number] ####Blow Pit Operator: DOMENICA JARA ([id number])[facility])[address] [place] [address] ALT [Catalytic activity/Vol] 10 U/L Normal <40 [facility] Comment on above: Performed By: #### L AB113, LAB17, [id number] ####Blow Pit Operator: DOMENICA JARA ([phone])[facility] ([facility])[address] [place] [address] Anion gap [Moles/Vol] 11 mmol/L Normal 3-13 [facility] Comment on above: Performed By: #### L ABAruna, LAB17, [id number] ####Blow Pit Operator: DOMENICA JARA ([id number])[facility] [place] [address] AST [Catalytic activity/Vol] 37 U/L High <34 [facility] Comment on above: Performed By: #### Tameka ABAruna, LAB17, [id number] ####Blow Pit Operator: DOMENICA JARA ([phone])[facility] ([facility])[address] [place] [address] Bilirubin [Mass/Vol] 0.6 mg/dL Normal <1.2 [facility] Comment on above: Performed By: #### Tameka ABAruna, LAB17, [id number] ####Blow Pit Operator: DOMENICA JARA ([id number])[facility] ([facility])[address] [place] [address] Calcium [Mass/Vol] 9.2 mg/dL Normal 8.4-10.2 [facility] Comment on above: Performed By: #### Tameka ABAruna, LAB17, [id number] ####Blow Pit Operator: DOMENICA JARA ([phone])[facility] ([facility])[address] [place] [address] [place] Chloride [Moles/Vol] 99 mmol/L Normal 98-107 [facility] Comment on above: Performed By: #### L ABAurna, LAB17, [id number] ####Blow Pit Operator: DOMENICA JARA ([id number])[facility])[address] [place] [address] CO2 [Moles/Vol] 25 mmol/L Normal 22-29 [facility] Comment on above: Performed By: #### L ABAruna, LAB17, [id number] ####Blow Pit Operator: DOMENICA JARA ([id number])[facility] ([facility])[address] [place] [address] Creatinine [Mass/Vol] 2.78 mg/dL High 0.72-1.25 [facility] Comment on above: Performed By: #### L AB113, LAB17, [id number] ####Blow Pit Operator: DOMENICA JARA ([phone])[facility])[address] [place] [address] [place] GLOMERULAR FILTRATION RATE ML/MIN/1.73 SQ M.PREDICTED 25.4 mL/min/1.73m*2 Low >60.0 [facility] Comment on above: Result Comment: Calc ulation based on the Chronic Kidney Disease Epidemiology Collaboration (CKD-EPI) equation refit without adjustment for race Performed By: #### L AB113, LAB17, [id number] ####Blow Pit Operator: DOMENICA JARA ([id number])[facility])[address] [place] [address] Glucose [Mass/Vol] 110 mg/dL High 74-100 [facility] Comment on above: Performed By: #### L AB113, LAB17, [id number] ####Blow Pit Operator: DOMENICA JARA ([id number])[facility])[address] [place] [address] [place] Potassium [Moles/Vol] 4.1 mmol/L Normal 3.5-5.1 [facility] Comment on above: Result Comment: [facility] potassium values may be up to 0.5 mmol/L lower than serum values. Performed By: #### L AB113, LAB17, [id number] ####Blow Pit Operator: DOMENICA JARA ([phone])[facility])[address] [place] [address] [place] Protein [Mass/Vol] 7.1 g/dL Normal 6.4-8.3 [facility] Comment on above: Performed By: #### L AB113, LAB17, [id number] ####Blow Pit Operator: DOMENICA JARA ([id number])[facility])[address] [place] [address] [place] Sodium [Moles/Vol] 135 mmol/L Low 136-145 [facility] Comment on above: Performed By: #### L AB113, LAB17, [id number] ####Blow Pit Operator: DOMENICA JARA ([id number])[facility] ([facility])[address] [place] [address] Urea nitrogen [Mass/Vol] 21 mg/dL Normal 9-23 [facility] Comment on above: Performed By: #### L AB113, LAB17, [id number] ####Blow Pit Operator: DOMENICA JARA ([id number])[facility] ([facility])[address] [place] [address] Comprehensive metabolic 1998 panelOrdered By: Jarred José on 02-23-2025 Albumin [Mass/Vol] 1.9 g/dL Low 3.5 - 5.0 g/dL [facility] ALP [Catalytic activity/Vol] 136 U/L 40 - 150 U/L [facility] ALT [Catalytic activity/Vol] 10 U/L NINF - 40 U/L [facility] Anion gap [Moles/Vol] 11 mmol/L 3 - 13 mmol/L [facility] AST [Catalytic activity/Vol] 37 U/L High NINF - 34 U/L [facility] Bilirubin [Mass/Vol] 0.6 mg/dL NINF - 1.2 mg/dL [facility] Calcium [Mass/Vol] 9.2 mg/dL 8.4 - 10. 2 mg/dL [facility] Chloride [Moles/Vol] 99 mmol/L 98 - 10 7 mmol/L [facility] CO2 [Moles/Vol] 25 mmol/L 22 - 29 mmol/L [facility] Creatinine [Mass/Vol] 2.78 mg/dL High 0.72 - 1.25 mg/dL [facility] GFR/1.73 sq M.predicted (S/P/Bld) [Vol rate/Area] 25.4 mL/min Low - PINF [facility] Glucose [Mass/Vol] 110 mg/dL High 74 - 100 mg/dL [facility] Interpretation and review of laboratory results Abnormal [facility] Potassium [Moles/Vol] 4.1 mmol/L 3.5 - 5.1 mmol/L [facility] Protein [Mass/Vol] 7.1 g/dL 6.4 - 8.3 g/dL [facility] Sodium [Moles/Vol] 135 mmol/L Low 136 - 145 mmol/L [facility] Urea nitrogen [Mass/Vol] 21 mg/dL 9 - 23 mg/d L [facility] Consulton 02-23-2025 Consult Normal [facility] Laboratory - Chemistry and C hemistry - challengeon 02-23-2025 Magnesium [Mass/Vol] 2 mg/dL 1.6 - 2 .6 mg/dL [facility] Laboratory - Coagulationon 0 02-23-2025 PT Coag (Bld) [Time] 14 s High 9.0 - 12.0 s [facility] MAGNESIUMon 02-23-2025 Magnesium [Mass/Vol] 2.0 mg/dL Normal 1.6-2.6 [facility] Comment on above: Result Comment: ARPAN Kaplan COMMENTS:Higher values can be expected in females during menses. Performed By: #### L AB113, LAB17, [id number] ####Blow Pit Operator: DOMENICA JARA ([id number])[facility] [employer] Magnesium [Mass/Vol]on 02-23 [facility] No Panel Informationon 02-23 Interpretation and review of laboratory results Normal [facility] Interpretation and review of laboratory results Abnormal [facility] Nursing Noteon 02-23-2025 Nursing Note Normal [facility] Nursing Note Normal [facility] PHOSPHORUSon 02-23-2025 Phosphate [Mass/Vol] 2.6 mg/dL Normal 2.3-4.7 [facility] Comment on above: Performed By: #### L AB113, LAB17, [id number] ####Blow Pit Operator: DOMENICA JARA ([id number])[facility])[address] [place] [address] PROTHROMBIN TIMEon INR Coag (PPP) [Relative time] 1.3 {INR} High 0.9-1.1 [facility] Comment on above: Result Comment: Vaughn [...] Myocardial Infarction Performed By: #### Tameka AB325, [id number] ####Blow Pit Operator: DOMENICA JARA ([phone])[facility] ([facility] [place] [address] PT Coag (PPP) [Time] 14.0 s High 9.0-12.0 [facility] [employer] [facility] Comment on above: Performed By: #### Tameka AB325, [id number] ####Blow Pit Operator: DOMENICA JARA ([phone])[facility] ([employer])[address] [place] [address] PT Coag (Bld) [Time]on 02-23 INR Coag (PPP) [Relative time] 1.3 {INR} High 0.9 - 1.1 [facility] Phosphate [Moles/Vol]on 01-27 Phosphate [Mass/Vol] 2.6 mg/dL 2.3 - 4 .7 mg/dL [facility] Progress Noteon 02-23-2025 Progress Note [facility] Progress Note [facility] Progress [facility] Normal [facility] Progress Note Normal [facility] Progress Note Normal [facility] Progress Note Normal [facility] US Heart TransthoracicOrdere d By: Daryn Chowdary on 02-23-2025 Aortic valve Mean systole pressure gradient by US.doppler derived full Bernoulli 10 mmHg [employer] Work Phone: Aortic valve Orifice area by US 3.1 cm2 [employer] Work Phone: Aortic valve Peak systolic flow by US.doppler 1.4 m/s [facility] Work Phone: Ascending Aorta 3.5 cm [employer] Work Phone: Ascending Aorta Index 1.99 cm/m2 [facility] Work Phone: AV Area by Peak Velocity 1.3 cm2 [facility] Work Phone: AV Area by VTI 1.5 cm2 [facility] Work Phone: AV AT 66.6 ms [facility] Work Phone: AV Peak Gradient 20 mmHg [facility] Work Phone: AV Peak Velocity 2.3 m/s [facility] Work Phone: AV Velocity Ratio 0.39 [facility] Work Phone: AV VTI 39.1 cm [facility] Work Phone: MALU/BSA Peak Velocity 0.7 cm2/m2 [facility] Work Phone: MALU/BSA VTI 0.9 cm2/m2 [facility] Work Phone: E/E' Lateral 21.43 [facility] Work Phone: E/E' Ratio (Averaged) 25.[address] [facility] Work Phone: E/E' Septal 30 [facility] Work Phone: Est. RA Pressure 15 mmHg [facility] Work Phone: Fractional Shortening 2D 31 % 28 - 44 % [facility] Work Phone: Interpretation and review of laboratory results Abnormal [facility] Work Phone: IVC Diameter 2.5 cm [facility] Work Phone: IVSd 1.6 cm Abnormal 0.6 - 1.0 cm [facility] Work Phone: LA Diameter 3.1 cm [facility] Work Phone: LA Size Index 1.76 cm/m2 [facility] Work Phone: LA Volume 2C 69 mL Abnormal 18 - 58 mL [facility] Work Phone: LA Volume 4C 84 mL Abnormal 18 - 58 mL [facility] Work Phone: LA Volume A/L 85 mL [facility] Work Phone: LA Volume BP 78 mL Abnormal 18 - 58 mL [facility] Work Phone: LA Volume Index 2C 39 mL/m2 Abnormal 16 - 34 mL/m2 [facility] Work Phone: LA Volume Index 4C 48 mL/m2 Abnormal 16 - 34 mL/m2 [facility] Work Phone: LA Volume Index A/L 48 mL/m2 16 - 34 mL/m2 [facility] Work Phone: LA Volume Index BP 44 ml/m2 Abnormal 16 - 34 ml/m2 [facility] Work Phone: LV E' Lateral Velocity 7 cm/s [facility] Work Phone: LV E' Septal Velocity 5 cm/s [facility] Work Phone: LV Mass 2D 201 g 88 - 224 g [facility] Work Phone: LV Mass 2D Index 114.2 g/m2 49 - 115 g/m2 [facility] Work Phone: LV RWT Ratio 0.78 [facility] Work Phone: LVIDd 3.6 cm Abnormal 4.2 - 5.9 cm [facility] Work Phone: LVIDd Index 2.05 cm/m2 [facility] Work Phone: LVIDs 2.5 cm [facility] Work Phone: LVIDs Index 1.42 cm/m2 [facility] Work Phone: LVOT Cardiac Output 5.3 liter/minute [facility] Work Phone: LVOT Diameter 2 cm [facility] Work Phone: LVOT Mean Gradient 2 mmHg [facility] Work Phone: LVOT Peak Gradient 3 mmHg [facility] Work Phone: LVOT Peak Velocity 0.9 m/s [facility] Work Phone: LVOT Stroke Volume Index 33.4 mL/m2 [facility] Work Phone: LVOT SV 58.7 ml [facility] Work Phone: LVOT VTI 18.7 cm [facility] Work Phone: LVOT:AV VTI Index 0.48 [facility] Work Phone: LVPWd 1.4 cm Abnormal 0.6 - 1.0 cm [facility] Work Phone: MV A Velocity 0.97 m/s [facility] Work Phone: MV Area by PHT 3 cm2 [facility] Work Phone: MV Area by VTI 1.3 cm2 [facility] Work Phone: MV E Velocity 1.5 m/s [facility] Work Phone: MV E Wave Deceleration Time 250.1 ms [facility] Work Phone: MV E/A 1.55 [facility] Work Phone: MV Max Velocity 2 m/s [facility] Work Phone: MV Mean Gradient 7 mmHg [facility] Work Phone: MV Mean Velocity 1.2 m/s [facility] Work Phone: MV Peak Gradient 16 mmHg [facility] Work Phone: MV PHT 73.9 ms [facility] Work Phone: MV VTI 44.1 cm [facility] Work Phone: MV:LVOT VTI Index 2.36 [...] Work Phone: TR Peak Gradient 42 mmHg [facility] Work Phone: [facility] Work Phone: US Heart Transthoracicon [facility] aPTT Coag (Bld) [Time]on aPTT Coag (PPP) [Time] 49.3 s High 20.0 - 30.5 s [facility] 30on 02-22-2025 30 Normal [facility] [id number] 02-22-2025 [id number] Normal [facility] [id number] Updated notes sent to [facility] via [facility] per TCC request. Await review and response regarding ability to accept. TCC notified. on 02-22-2025 aPTT Coag (Bld) [Time] 52.1 s High 20.0-30.5 [facility] Comment on above: Result Comment: ARPAN Kaplan COMMENTS:NOTE: The therapeutic time for Heparin anticoagulation, based on Xa activity inhibition, is an APTT of 46-80 seconds. Performed By: #### L AB325 ####Blow Pit Operator: DOMENICA JARA ([phone])[facility])[address] [place] [address] aPTT Coag (Bld) [Time] 54.9 s High 20.0-30.5 [facility] Comment on above: Result Comment: ARPAN R COMMENTS:NOTE: The therapeutic time for Heparin anticoagulation, based on Xa activity inhibition, is an APTT of 46-80 seconds. Performed By: #### L AB325, [id number] ####Blow Pit Operator: DOMENICA JARA ([id number])[facility])[address] [place] [address] BLOOD CULTUREon 02-22-2025 Bacteria identified Cx Nom (Bld) Normal [facility] Comment on above: Performed By: #### L AB462 ####Blow Pit Operator: DOMENICA JARA ([id number])[address] Bacteria identified Cx Nom (Bld) Normal [facility] Comment on above: Performed By: #### L AB462 ####Blow Pit Operator: DOMENICA JARA ([id number])[address] CBC (HEMOGRAM)on 02-22-2025 Erythrocyte distribution width (RBC) [Ratio] 19.4 % High 11.5-15.0 [facility] Comment on above: Performed By: #### L AB294 ####Blow Pit Operator: DOMENICA [id number])[address] Hematocrit (Bld) [Volume fraction] 24.5 % Low 40.0-52.0 [facility] Comment on above: Performed By: #### L AB294 ####Blow Pit Operator: DOMENICA [id number])[facility])[address] [place] [address] Hemoglobin (Bld) [Mass/Vol] 7.8 g/dL Low 13.0-18.0 [facility] Comment on above: Performed By: #### L AB294 ####Blow Pit Operator: DOMENICA JARA ([id number])[facility])[address] [place] [address] MCH (RBC) [Entitic mass] 29.0 pg Normal 26.0-34.0 [facility] Comment on above: Performed By: #### L AB294 ####Blow Pit Operator: DOMENICA JARA ([phone])[facility])[address] [place] [address] MCHC 31.8 % Normal 30.5-36.0 [facility] Comment on above: Performed By: #### L AB294 ####Blow Pit Operator: DOMENICA JARA ([phone])[facility])[address] [place] [address] MCV (RBC) [Entitic vol] 91.1 fL Normal 77.0-99.0 [facility] Comment on above: Performed By: #### L AB294 ####Blow Pit Operator: DOMENICA JARA ([id number])[facility])[address] [place] [address] Platelet mean volume (Bld) [Entitic vol] 8.9 fL Low 9.0-12.7 [facility] Comment on above: Performed By: #### L AB294 ####Blow Pit Operator: DOMENICA JARA ([phone])[facility])[address] [place] [address] Platelets (Bld) [#/Vol] 282 10*3/uL Normal 140-440 [facility] Comment on above: Performed By: #### L AB294 ####Blow Pit Operator: DOMENICA JARA ([id number])[facility])[address] [place] [address] [place] RBC (Bld) [#/Vol] 2.69 10*6/uL Low 4.40-5.90 [facility] Comment on above: Performed By: #### L AB294 ####Blow Pit Operator: DOMENICA JARA ([id number])[facility] ([facility])[address] [place] [address] WBC (Bld) [#/Vol] 9.0 10*3/uL Normal 3.6-10.7 [facility] Comment on above: Performed By: #### L AB294 ####Blow Pit Operator: DOMENICA JARA ([id number])[facility] ([facility])[address] [place] [address] CBC panel Auto (Bld)on 02-22 Erythrocyte distribution width (RBC) [Ratio] 19.4 % High 11.5 - 15.0 % [facility] Hematocrit (Bld) [Volume fraction] 24.5 % Low 40.0 - 52.0 % [facility] Hemoglobin (Bld) [Mass/Vol] 7.8 g/dL Low 13.0 - 18.0 g/dL [facility] Interpretation and review of laboratory results Abnormal [facility] MCH (RBC) [Entitic mass] 29 pg 26. 0 - 34.0 pg [facility] MCHC (RBC) [Mass/Vol] 31.8 % 30.5 - 36.0 % [facility] MCV (RBC) [Entitic vol] 91.1 fL 77.0 - 99.0 fL [facility] Platelet mean volume (Bld) [Entitic vol] 8.9 fL Low 9.0 - 12.7 fL [facility] Platelets (Bld) [#/Vol] 282 10*3/uL 140 - 440 10*3/uL [facility] RBC (Bld) [#/Vol] 2.69 10*6/uL Low 4.40 - 5.9 0 10*6/uL [facility] WBC (Bld) [#/Vol] 9 10*3/uL 3.6 - 10.7 10*3/uL [facility] COMPREHENSIVE METABOLIC PANE Victor M 02-22-2025 Albumin [Mass/Vol] 1.8 g/dL Low 3.5-5.0 [facility] Comment on above: Performed By: #### L AB103, LAB17, [id number] ####Blow Pit Operator: DOMENICA JARA ([id number])[facility] ([facility])[address] [place] [address] ALP [Catalytic activity/Vol] 120 U/L Normal 40-150 [facility] Comment on above: Performed By: #### Tameka ABRadha, LAB17, [id number] ####Blow Pit Operator: DOMENICA JARA ([phone])[facility] ([facility])[address] [place] [address] ALT [Catalytic activity/Vol] 9 U/L Normal <40 [facility] Comment on above: Performed By: #### Tameka KWONG, LAB17, [id number] ####Blow Pit Operator: DOMENICA JARA ([phone])[facility] ([facility])[address] [place] [address] Anion gap [Moles/Vol] 13 mmol/L Normal 3-13 [facility] Comment on above: Performed By: #### Tameka AB103, LAB17, [id number] ####Blow Pit Operator: DOMENICA JARA ([phone])[facility] ([facility])[address] [place] [address] AST [Catalytic activity/Vol] 35 U/L High <34 [facility] Comment on above: Performed By: #### Tameka KWONG, LAB17, [id number] ####Blow Pit Operator: DOMENICA JARA ([phone])[facility] ([facility])[address] [place] [address] Bilirubin [Mass/Vol] 0.6 mg/dL Normal <1.2 [facility] Comment on above: Performed By: #### Tameka ABRadha, LAB17, [id number] ####Blow Pit Operator: DOMENICA JARA ([phone])[facility] ([facility])[address] [place] [address] Calcium [Mass/Vol] 9.2 mg/dL Normal 8.4-10.2 [facility] Comment on above: Performed By: #### Tameka ABRadha, LAB17, [id number] ####Blow Pit Operator: DOMENICA JARA ([phone])[facility] ([facility])[address] [place] [address] [place] Chloride [Moles/Vol] 94 mmol/L Low 98-107 [facility] Comment on above: Performed By: #### Tameka AB103, LAB17, [id number] ####Blow Pit Operator: DOMENICA JARA ([phone])[facility] ([facility] [place] [address] [place] CO2 [Moles/Vol] 25 mmol/L Normal 22-29 [facility] Comment on above: Performed By: #### Tameka KWONG, LAB17, [id number] ####Blow Pit Operator: DOMENICA JARA ([phone])[facility] ([facility] [place] [address] Creatinine [Mass/Vol] 3.99 mg/dL High 0.72-1.25 [facility] Comment on above: Performed By: #### Tameka KWONG, LAB17, [id number] ####Blow Pit Operator: DOMENICA JARA ([phone])[facility] ([facility])[address] [place] [address] GLOMERULAR FILTRATION RATE ML/MIN/1.73 SQ M.PREDICTED 16.5 mL/min/1.73m*2 Low >60.0 [facility] Comment on above: Result Comment: Calc ulation based on the Chronic Kidney Disease Epidemiology Collaboration (CKD-EPI) equation refit without adjustment for race Performed By: #### Tameka KWONG, LAB17, [id number] ####Blow Pit Operator: DOMENICA JARA ([phone])[facility] ([facility])[address] [place] [address] [place] Glucose [Mass/Vol] 121 mg/dL High 74-100 [facility] Comment on above: Performed By: #### Tameka KWONG, LAB17, [id number] ####Blow Pit Operator: DOMENICA JARA ([phone])[facility] ([facility])[address] [place] [address] [place] Potassium [Moles/Vol] 3.4 mmol/L Low 3.5-5.1 [facility] Comment on above: Result Comment: Plas ma potassium values may be up to 0.5 mmol/L lower than serum values. Performed By: #### L AB103, LAB17, [id number] ####Blow Pit Operator: DOMENICA JARA ([phone])[facility] ([facility])[address] [place] [address] Protein [Mass/Vol] 6.7 g/dL Normal 6.4-8.3 [facility] Comment on above: Performed By: #### Tameka AB103, LAB17, [id number] ####Blow Pit Operator: DOMENICA JARA ([phone])[facility] ([facility])[address] [place] [address] Sodium [Moles/Vol] 132 mmol/L Low 136-145 [facility] Comment on above: Performed By: #### Tameka AB103, LAB17, [id number] ####Blow Pit Operator: DOMENICA JARA ([phone])[facility] ([facility])[address] [place] [address] Urea nitrogen [Mass/Vol] 36 mg/dL High 9-23 [facility] Comment on above: Performed By: #### Tameka AB103, LAB17, [id number] ####Blow Pit Operator: DOMENICA JARA ([phone])[facility])[address] [place] [address] Comprehensive metabolic 1998 panelOrdered By: Michelle Olmstead on 02-22-2025 Albumin [Mass/Vol] 1.8 g/dL Low 3.5 - 5.0 g/dL [facility] ALP [Catalytic activity/Vol] 120 U/L 40 - 150 U/L [facility] ALT [Catalytic activity/Vol] 9 U/L NINF - 40 U/L [facility] Anion gap [Moles/Vol] 13 mmol/L 3 - 13 mmol/L [facility] AST [Catalytic activity/Vol] 35 U/L High NINF - 34 U/L [facility] Bilirubin [Mass/Vol] 0.6 mg/dL NINF - 1.2 mg/dL [facility] Calcium [Mass/Vol] 9.2 mg/dL 8.4 - 10. 2 mg/dL [facility] Chloride [Moles/Vol] 94 mmol/L Low 98 - 10 7 mmol/L [facility] CO2 [Moles/Vol] 25 mmol/L 22 - 29 mmol/L [facility] Creatinine [Mass/Vol] 3.99 mg/dL High 0.72 - 1.25 mg/dL [facility] GFR/1.73 sq M.predicted (S/P/Bld) [Vol rate/Area] 16.5 mL/min Low - PINF [facility] Glucose [Mass/Vol] 121 mg/dL High 74 - 100 mg/dL [facility] Interpretation and review of laboratory results Abnormal [facility] Potassium [Moles/Vol] 3.4 mmol/L Low 3.5 - 5.1 mmol/L [facility] Protein [Mass/Vol] 6.7 g/dL 6.4 - 8.3 g/dL [facility] Sodium [Moles/Vol] 132 mmol/L Low 136 - 145 mmol/L [facility] Urea nitrogen [Mass/Vol] 36 mg/dL High 9 - 23 mg/d L [facility] Consulton 02-22-2025 Consult Normal [facility] Consult Normal [facility] Consult Normal [facility] LEGIONELLA AND STREPTOCOCCUS URINE ANTIGENon 02-22-2025 LEGIONELLA AND STREPTOCOCCUS URINE ANTIGEN Normal [facility] Comment on above: Performed By: #### L [id number] ####Blow Pit Operator: DOMENICA JARA ([phone])[address] Laboratory - Chemistry and C hemistry - challengeon 02-22-2025 Magnesium [Mass/Vol] 2.2 mg/dL 1.6 - 2 .6 mg/dL [facility] Laboratory - Coagulationon 0 02-22-2025 PT Coag (Bld) [Time] 14.9 s High 9.0 - 12.0 s [facility] Laboratory - Drug toxicology on 02-22-2025 Vancomycin [Mass/Vol] 12.6 ug/mL [facility] MAGNESIUMon 02-22-2025 Magnesium [Mass/Vol] 2.2 mg/dL Normal 1.6-2.6 [facility] Comment on above: Result Comment: ARPAN R COMMENTS:Higher values can be expected in females during menses. Performed By: #### L AB103, LAB17, [id number] ####Blow Pit Operator: DOMENICA JARA ([phone])[facility] ([facility])[address] [place] [address] [place] MRSA BY PCRon 02-22-2025 MRSA BY PCR Normal [facility] Comment on above: Performed By: #### L [id number] ####Blow Pit Operator: DOMENICA JARA ([phone])[facility] ([facility])[address] [place] [address] [place] MRSA DNA EMMANUEL+probe Ql (Nose) on 02-22-2025 Interpretation and review of laboratory results Normal [facility] mecA gene Not detected Not Detected [facility] Staphylococcus aureus Not detected Not Detected [facility] Magnesium [Mass/Vol]on 02-22 [facility] No Panel Informationon 02-22 [facility] Interpretation and review of laboratory results Normal [facility] Interpretation and review of laboratory results Abnormal [facility] No Panel InformationOrdered By: Lorin Bryant on 02-22-2025 Interpretation and review of laboratory results Normal [facility] Legionella pneumophila Ag Not detected Not Detected [facility] Streptococcus pneumoniae Ag Not detected Not Detected [facility] Nursing Noteon 02-22-2025 Nursing Note Pt keeps ordering door dash items. Have explained to pt on multiple occasions that staff cannot leave floor to get items and that it is after hours and door dashers most likely will not be allowed up onto the floors. Normal [facility] Nursing Note Normal [facility] Nursing Note Normal [facility] PHOSPHORUSon 02-22-2025 Phosphate [Mass/Vol] 3.2 mg/dL Normal 2.3-4.7 [facility] Comment on above: Performed By: #### L AB103, LAB17, [id number] ####Blow Pit Operator: DOMENICA JARA ([phone])[facility] ([facility])[address] [place] [address] [place] PNEUMONIA PCR PANELon 2024 PNEUMONIA PCR PANEL Normal [facility] Comment on above: Performed By: #### L [id number] ####Blow Pit Operator: DOMENICA JARA ([phone])[facility])[address] [place] [address] PROTHROMBIN TIMEon INR Coag (PPP) [Relative time] 1.4 {INR} High 0.9-1.1 [facility] Comment on above: Result Comment: Vaughn [...] Myocardial Infarction Performed By: #### L AB325, [id number] ####Blow Pit Operator: DOMENICA JARA ([phone])[facility])[address] [place] [address] PT Coag (PPP) [Time] 14.9 s High 9.0-12.0 [facility] Comment on above: Performed By: #### L AB325, [id number] ####Blow Pit Operator: DOMENICA JARA ([phone])[facility])[address] [place] [address] PT Coag (Bld) [Time]on 02-22 INR Coag (PPP) [Relative time] 1.4 {INR} High 0.9 - 1.1 [facility] Phosphate [Moles/Vol]on 01-26 Phosphate [Mass/Vol] 3.2 mg/dL 2.3 - 4 .7 mg/dL [facility] Progress Noteon 02-22-2025 Progress Note [facility] Progress Note [facility] Progress [facility] Progress Note OCCUPATIONAL THERAPY [facility] Name/MRN: Jair Snyder ([id number]) Date: 02/22/2025 PT refusing to participate in therapy this AM, will continue to follow and re approach for OT eval. Ro Farnsworth, OT Normal [facility] Progress Note Normal [facility] Progress Note Normal [facility] RESPIRATORY CULTURE AND STAI Non 02-22-2025 RESPIRATORY CULTURE AND STAIN Normal [facility] Comment on above: Performed By: #### L [id number] ####Blow Pit Operator: DOMENICA JARA ([phone])[facility] ([facility])[address] [place] [address] Respiratory pathogens DNA an d RNA panel EMMANUEL+non-probe (Lower resp)Ordered By: Odalys Bustamante on 02-22-2025 Acinetobacter baumannii complex Not detected Not Detected [facility] Adenovirus Not detected Not Detected [facility] Chlamydia pneumoniae Not detected Not Detected [facility] Enterobacter cloacae complex Not detected Not Detected [facility] Escherichia coli Not detected Not Detected [facility] FLUAV RNA EMMANUEL+non-probe Ql (Lower resp) Not detected Not Detected [facility] FLUBV RNA EMMANUEL+non-probe Ql (Lower resp) Not detected Not Detected [facility] Haemophilus influenzae Not detected Not Detecte d [facility] Human Metapneumovirus Not detected Not Detected [facility] Human Rhinovirus/Enterovirus Not detected Not Detected [facility] Interpretation and review of laboratory results Abnormal [facility] Klebsiella (Enterobacter) aerogenes Not detected Not Detected [facility] Klebsiella oxytoca Detected Abnormal Not Detected [facility] Klebsiella pneumoniae Not detected Not Detected [facility] Legionella pneumophila Not detected Not Detecte d [facility] mecA Not detected Not Detected [facility] Moraxella catarrhalis Not detected Not Detected [facility] Mycoplasma pneumoniae Not detected Not Detected [facility] Parainfluenza virus Not detected Not Detected [facility] Proteus spp Not detected Not Detected [facility] Pseudomonas aeruginosa Not detected Not Detecte d [facility] RSV RNA EMMANUEL+probe Ql (Resp) Not detected Not Detected [facility] S. agalactiae Org specific cx Ql (Vag fld) Not detected Not Detected [facility] SARS-CoV-2 (COVID-19) RNA EMMANUEL+non-probe Ql (Nph) Not detected Not Detected [facility] Serratia marcescens Not detected Not Detected [facility] Staphylococcus aureus Detected Abnormal Not Detected [facility] Streptococcus pneumoniae Not detected Not Detec yo [facility] Streptococcus pyogenes Not detected Not Detecte d [facility] VANCOMYCIN, RANDOMon 025 VANCOMYCIN 12.6 ug/mL Normal [facility] Comment on above: Result Comment: ARPAN Kaplan COMMENTS:This level is ordered to be drawn 4 hours post- HD. ThanksToxicity is seen at concentrations >80-100 ug/mLTherapeutic (Peak) range: 20-40Therapeutic (Trough) range: 5-10 Performed By: #### L AB40 ####Blow Pit Operator: DOMENICA JARA ([phone])[facility] ([facility])[address] [place] [address] aPTT Coag (Bld) [Time]on aPTT Coag (PPP) [Time] 52.1 s High 20.0 - 30.5 s [facility] Interpretation and review of laboratory results Abnormal [facility] aPTT Coag (PPP) [Time] 54.9 s High 20.0 - 30.5 s [facility] 30on 02-21-2025 30 Normal [facility] [id number] 02-21-2025 [id number] [facility]Benoiti shannan signed by Kaity Sepulveda RN on 02/21/2025 at 12:54 PM [id number] 36on 02-21-2025 36 Normal [facility] APTTon 02-21-2025 aPTT Coag (Bld) [Time] 50.3 s High 20.0-30.5 [facility] Comment on above: Result Comment: ARPAN Kaplan COMMENTS:NOTE: The therapeutic time for Heparin anticoagulation, based on Xa activity inhibition, is an APTT of 46-80 seconds. Performed By: #### L AB325 ####Blow Pit Operator: DOMENICA JARA ([phone])[facility] ([facility])[address] [place] [address] aPTT Coag (Bld) [Time] 32.6 s High 20.0-30.5 [facility] Comment on above: Result Comment: ARPAN Kaplan COMMENTS:NOTE: The therapeutic time for Heparin anticoagulation, based on Xa activity inhibition, is an APTT of 46-80 seconds. Performed By: #### L AB325 ####Blow Pit Operator: DOMENICA JARA ([phone])[facility])[address] [place] [address] BLOOD TYPE AND SCREEN GELon 02-21-2025 ABO GROUPING O Normal [facility] Comment on above: Performed By: #### L AB276 ####Blow Pit Operator: DOMENICA JARA ([phone])[facility]OD [facility] ([facility])[address] [place] [address] RH TYPE IN BLOOD Negative Normal [facility] Comment on above: Performed By: #### L AB276 ####Blow Pit Operator: DOMENICA JARA ([phone])[facility] ([facility])[address] [place] [address] Blood type and Crossmatch pa freida (Bld)on 02-21-2025 ABO group Nom (Bld) O [facility] Blood group antibody screen GEL Ql Negative [facility] D Ag Ql (RBC) Negative [facility] C-REACTIVE PROTEINon 025 CRP [Mass/Vol] 60.3 mg/L High <5.0 [facility] Comment on above: Performed By: #### L [id number], [id number], [id number], LAB17, ANA830 ####Blow Pit Operator: DOMENICA JARA ([phone])[facility] ([facility])[address] [place] [address] CBC (HEMOGRAM)on 02-21-2025 Erythrocyte distribution width (RBC) [Ratio] 19.0 % High 11.5-15.0 [facility] Comment on above: Performed By: #### L AB294 ####Blow Pit Operator: DOMENICA JARA ([phone])[facility])[address] [place] [address] Hematocrit (Bld) [Volume fraction] 25.7 % Low 40.0-52.0 [facility] Comment on above: Performed By: #### L AB294 ####Blow Pit Operator: DOMENICA JARA ([phone])[facility] ([facility])[address] [place] [address] Hemoglobin (Bld) [Mass/Vol] 8.3 g/dL Low 13.0-18.0 [facility] Comment on above: Performed By: #### L AB294 ####Blow Pit Operator: DOMENICA JARA ([phone])[facility])[address] [place] [address] MCH (RBC) [Entitic mass] 29.0 pg Normal 26.0-34.0 [facility] Comment on above: Performed By: #### L AB294 ####Blow Pit Operator: DOMENICA JARA ([phone])[facility])[address] [place] [address] MCHC 32.3 % Normal 30.5-36.0 [facility] Comment on above: Performed By: #### L AB294 ####Blow Pit Operator: DOMENICA JARA ([phone])[facility] ([facility])[address] [place] [address] MCV (RBC) [Entitic vol] 89.9 fL Normal 77.0-99.0 [facility] Comment on above: Performed By: #### L AB294 ####Blow Pit Operator: DOMENICA JARA ([phone])[facility] ([facility])[address] [place] [address] Platelet mean volume (Bld) [Entitic vol] 8.9 fL Low 9.0-12.7 [facility] Comment on above: Performed By: #### L AB294 ####Blow Pit Operator: DOMENICA JARA ([phone])[facility])[address] [place] [address] Platelets (Bld) [#/Vol] 316 10*3/uL Normal 140-440 [facility] Comment on above: Performed By: #### L AB294 ####Blow Pit Operator: DOMENICA JARA ([phone])[facility])[address] [place] [address] RBC (Bld) [#/Vol] 2.86 10*6/uL Low 4.40-5.90 [facility] Comment on above: Performed By: #### L AB294 ####Blow Pit Operator: DOMENICA JARA ([phone])[facility] ([facility])[address] [place] [address] WBC (Bld) [#/Vol] 7.0 10*3/uL Normal 3.6-10.7 [facility] Comment on above: Performed By: #### L AB294 ####Blow Pit Operator: DOMENICA JARA ([phone])[facility] ([facility])[address] [place] [address] CBC panel Auto (Bld)on 02-21 Erythrocyte distribution width (RBC) [Ratio] 19 % High 11.5 - 15.0 % [facility] Hematocrit (Bld) [Volume fraction] 25.7 % Low 40.0 - 52.0 % [facility] Hemoglobin (Bld) [Mass/Vol] 8.3 g/dL Low 13.0 - 18.0 g/dL [facility] Interpretation and review of laboratory results Abnormal [facility] MCH (RBC) [Entitic mass] 29 pg 26. 0 - 34.0 pg [facility] MCHC (RBC) [Mass/Vol] 32.3 % 30.5 - 36.0 % [facility] MCV (RBC) [Entitic vol] 89.9 fL 77.0 - 99.0 fL [facility] Platelet mean volume (Bld) [Entitic vol] 8.9 fL Low 9.0 - 12.7 fL [facility] Platelets (Bld) [#/Vol] 316 10*3/uL 140 - 440 10*3/uL [facility] RBC (Bld) [#/Vol] 2.86 10*6/uL Low 4.40 - 5.9 0 10*6/uL [facility] WBC (Bld) [#/Vol] 7 10*3/uL 3.6 - 10.7 10*3/uL [facility] COMPREHENSIVE METABOLIC PANE Victor M 02-21-2025 Albumin [Mass/Vol] 2.0 g/dL Low 3.5-5.0 [facility] Comment on above: Performed By: #### L [id number], [id number], VYJ842, LAB17, THW471 ####Blow Pit Operator: DOMENICA JARA ([phone])[facility] ([facility])[address] [place] [address] ALP [Catalytic activity/Vol] 120 U/L Normal 40-150 [facility] Comment on above: Performed By: #### L [id number], DZG657, HUG858, LAB17, NCP720 ####Blow Pit Operator: DOMENICA JARA ([phone])[facility] ([facility])[address] [place] [address] ALT [Catalytic activity/Vol] 8 U/L Normal <40 [facility] Comment on above: Performed By: #### L [id number], [id number], MSL089, LAB17, ALU821 ####Blow Pit Operator: DOMENICA JARA ([phone])[facility] ([facility])[address] [place] [address] Anion gap [Moles/Vol] 12 mmol/L Normal 3-13 [facility] Comment on above: Performed By: #### L [id number], QWZ261, SJS798, LAB17, WRU153 ####Blow Pit Operator: DOMENICA JARA ([phone])[facility] ([facility])[address] [place] [address] AST [Catalytic activity/Vol] 39 U/L High <34 [facility] Comment on above: Performed By: #### L [id number], GHA223, UIA953, LAB17, GPF279 ####Blow Pit Operator: DOMENICA JARA ([phone])[facility] ([facility])[address] [place] [address] Bilirubin [Mass/Vol] 0.8 mg/dL Normal <1.2 [facility] Comment on above: Performed By: #### L [id number], PTM295, UWJ157, LAB17, GLB704 ####Blow Pit Operator: DOMENICA JARA ([phone])[facility] ([facility])[address] [place] [address] Calcium [Mass/Vol] 9.3 mg/dL Normal 8.4-10.2 [facility] Comment on above: Performed By: #### L [id number], CDQ471, OYD500, LAB17, DWZ956 ####Blow Pit Operator: DOMENICA JARA ([phone])[facility] ([facility])[address] [place] [address] Chloride [Moles/Vol] 91 mmol/L Low 98-107 [facility] Comment on above: Performed By: #### L [id number], GGY086, ZNP097, LAB17, MZL311 ####Blow Pit Operator: DOMENICA JARA ([phone])[facility] ([facility])[address] [place] [address] CO2 [Moles/Vol] 28 mmol/L Normal 22-29 [facility] Comment on above: Performed By: #### L [id number], CPK831, TAU454, LAB17, JQB960 ####Blow Pit Operator: DOMENICA JARA ([phone])[facility] ([facility])[address] [place] [address] Creatinine [Mass/Vol] 2.89 mg/dL High 0.72-1.25 [facility] Comment on above: Performed By: #### L [id number], EXC961, QYN685, LAB17, GIO078 ####Blow Pit Operator: DOMENICA JARA ([phone])[facility] ([facility])[address] [place] [address] GLOMERULAR FILTRATION RATE ML/MIN/1.73 SQ M.PREDICTED 24.3 mL/min/1.73m*2 Low >60.0 [facility] Comment on above: Result Comment: Calc ulation based on the Chronic Kidney Disease Epidemiology Collaboration (CKD-EPI) equation refit without adjustment for race Performed By: #### L [id number], [id number], WNW198, LAB17, [id number] ####Blow Pit Operator: DOMENICA JARA ([phone])[facility] ([facility])[address] [place] [address] Glucose [Mass/Vol] 74 mg/dL Normal 74-100 [facility] Comment on above: Performed By: #### L [id number], [id number], XCK147, LAB17, AGA507 ####Blow Pit Operator: DOMENICA JARA ([phone])[facility])[address] [place] [address] Potassium [Moles/Vol] 3.1 mmol/L Low 3.5-5.1 [facility] Comment on above: Result Comment: [facility] potassium values may be up to 0.5 mmol/L lower than serum values. Performed By: #### L [id number], VSK163, ISK042, LAB17, NAX038 ####Blow Pit Operator: DOMENICA JARA ([phone])[facility] ([facility])[address] [place] [address] Protein [Mass/Vol] 6.8 g/dL Normal 6.4-8.3 [facility] Comment on above: Performed By: #### L [id number], [id number], POT015, LAB17, MGY175 ####Blow Pit Operator: DOMENICA JARA ([phone])[facility] ([facility])[address] [place] [address] Sodium [Moles/Vol] 131 mmol/L Low 136-145 [facility] Comment on above: Performed By: #### L [id number], BIR112, EEW063, LAB17, OJU540 ####Blow Pit Operator: DOMENICA JARA ([phone])[facility])[address] [place] [address] Urea nitrogen [Mass/Vol] 29 mg/dL High 9-23 [facility] Comment on above: Performed By: #### L [id number], ZUN709, LJC659, LAB17, JBJ557 ####Blow Pit Operator: DOMENICA JARA ([phone])[facility])[address] [place] [address] [place] CRP [Mass/Vol]on 02-21-2025 Interpretation and review of laboratory results Abnormal [facility] Comprehensive metabolic 1998 panelon 02-21-2025 Albumin [Mass/Vol] 2 g/dL Low 3.5 - 5.0 g/dL [facility] ALP [Catalytic activity/Vol] 120 U/L 40 - 150 U/L [facility] ALT [Catalytic activity/Vol] 8 U/L NINF - 40 U/L [facility] Anion gap [Moles/Vol] 12 mmol/L 3 - 13 mmol/L [facility] AST [Catalytic activity/Vol] 39 U/L High NINF - 34 U/L [facility] Bilirubin [Mass/Vol] 0.8 mg/dL NINF - 1.2 mg/dL [facility] Calcium [Mass/Vol] 9.3 mg/dL 8.4 - 10. 2 mg/dL [facility] Chloride [Moles/Vol] 91 mmol/L Low 98 - 10 7 mmol/L [facility] CO2 [Moles/Vol] 28 mmol/L 22 - 29 mmol/L [facility] Creatinine [Mass/Vol] 2.89 mg/dL High 0.72 - 1.25 mg/dL [facility] GFR/1.73 sq M.predicted (S/P/Bld) [Vol rate/Area] 24.3 mL/min Low - PINF [facility] Glucose [Mass/Vol] 74 mg/dL 74 - 100 mg/dL [facility] Potassium [Moles/Vol] 3.1 mmol/L Low 3.5 - 5.1 mmol/L [facility] Protein [Mass/Vol] 6.8 g/dL 6.4 - 8.3 g/dL [facility] Sodium [Moles/Vol] 131 mmol/L Low 136 - 145 mmol/L [facility] Urea nitrogen [Mass/Vol] 29 mg/dL High 9 - 23 mg/d L [facility] Consulton 02-21-2025 Consult Normal [facility] SHS Consult Normal [facility]S Consult Normal [facility] Consult Normal [facility] Laboratory - Chemistry and C hemistry - challengeon 02-21-2025 CRP [Mass/Vol] 60.3 mg/L High NINF - 5.0 mg/L [facility] Procalcitonin [Mass/Vol] 0.68 ng/mL High PROSPER F - 0.07 ng/mL [facility] Magnesium [Mass/Vol] 2.2 mg/dL 1.6 - 2 .6 mg/dL [facility] MAGNESIUMon 02-21-2025 Magnesium [Mass/Vol] 2.2 mg/dL Normal 1.6-2.6 [facility] Comment on above: Result Comment: ORDE R COMMENTS:Higher values can be expected in females during menses. Performed By: #### L [id number], [id number], SOW858, LAB17, JDY396 ####Blow Pit Operator: DOMENICA JARA ([phone])[facility] ([facility])[address] [place] [address] Magnesium [Mass/Vol]on 02-21 Interpretation and review of laboratory results Normal [facility] No Panel Informationon 02-21 Interpretation and review of laboratory results Abnormal [facility] Nursing Noteon 02-21-2025 Nursing Note Pt ordered [employer] food. Assisted pt to sit up on bedside to eat. Normal [facility] Nursing Note Normal [facility] Nursing Note Pt declining scheduled medications until after RN calls facility to see if he is actively taking those medications" per pt request. This RN spoke with RN at [facility] to verify medications that pt is taking. Normal [facility] Nursing Note Normal [facility] Nursing Note Pt removed NC from nose, stated he doesn't need it anymore. Respiratory Therapy came in to give pt, scheduled breathing treatment, pt stated he didn't need one." Normal [facility] Nursing Note Normal [facility] PHOSPHORUSon 02-21-2025 Phosphate [Mass/Vol] 2.0 mg/dL Low 2.3-4.7 [facility] Comment on above: Performed By: #### L [id number], [id number], ZTM121, LAB17, RSJ190 ####Blow Pit Operator: DOMENICA JARA ([phone])[facility] ([facility] [place] [address] PROCALCITONIN TESTon 025 PROCALCITONIN 0.68 ng/mL High <0.07 [facility] Comment on above: Result Comment: ORDE R COMMENTS:PCT <0.50 = Low risk of severe sepsis and/or septic shock.PCT >2.00 = High risk of severe sepsis and/or septic shock. Performed By: #### L [id number], [id number], FTU941, LAB17, XCE165 ####Blow Pit Operator: DOMENICA JARA ([phone])[facility] ([facility])[address] [place] [address] [place] Phosphate [Moles/Vol]on 01-26 Phosphate [Mass/Vol] 2 mg/dL Low 2.3 - 4 .7 mg/dL [facility] Procalcitonin [Mass/Vol]on 0 02-21-2025 Interpretation and review of laboratory results Abnormal [facility] Progress Noteon 02-21-2025 Progress Note PHYSICAL THERAPY [facility] Name/MRN: Jair Snyder ([id number]) Date: 02/21/2025 Pt declined to work with therapy at this time, stating he wanted to eat first. Will reattempt at a later date. Sangeeta Sarabia, PT Normal [facility] Progress Note Normal [facility] SHS Progress Note Normal [facility] RESPIRATORY PATHOGENS PANEL BY PCRon 02-21-2025 RESPIRATORY PATHOGENS PANEL BY PCR Normal [facility] Comment on above: Performed By: #### L [id number] ####Blow Pit Operator: DOMENICA JARA ([phone])[facility] ([facility])[address] [place] [address] Respiratory pathogens DNA an d RNA panel EMMANUEL+non-probe (Nph)on 02-21-2025 Adenovirus Not detected Not Detected [facility] B. pertussis DNA EMMANUEL+probe Ql (Unsp spec) Not detected Not Detected [facility] ealt Bordetella parapertussis Not detected Not Detec yo [facility] Chlamydia pneumoniae Not detected Not Detected [facility] Coronavirus 229E Not detected Not Detected [facility] Coronavirus HKU1 Not detected Not Detected [facility] Coronavirus NL63 Not detected Not Detected [facility] Coronavirus OC43 Not detected Not Detected [facility] FLUAV RNA EMMANUEL+non-probe Ql (Nph) Not detected Not Detected [facility] FLUBV RNA EMMANUEL+non-probe Ql (Nph) Not detected Not Detected [facility] Human Metapneumovirus Not detected Not Detected [facility] Human Rhinovirus/Enterovirus Not detected Not Detected [facility] Interpretation and review of laboratory results Normal [facility] Mycoplasma pneumoniae Not detected Not Detected [facility] Parainfluenza 1 Not detected Not Detected [facility] Parainfluenza 2 Not detected Not Detected [facility] Parainfluenza 3 Not detected Not Detected [facility] Parainfluenza 4 Not detected Not Detected [facility] Respiratory Syncytial Virus Not detected Not Detected [facility] SARS-CoV-2 (COVID-19) RNA EMMANUEL+non-probe Ql (Nph) Not detected Not Detected [facility] aPTT Coag (Bld) [Time]on aPTT Coag (PPP) [Time] 50.3 s High 20.0 - 30.5 s [facility] Interpretation and review of laboratory results Abnormal [facility] aPTT Coag (PPP) [Time] 32.6 s High 20.0 - 30.5 s [facility] Interpretation and review of laboratory results Abnormal [facility] APTTon 02-20-2025 aPTT Coag (Bld) [Time] 26.2 s Normal 20.0-30.5 [facility] Comment on above: Result Comment: ARPAN Kaplan COMMENTS:NOTE: The therapeutic time for Heparin anticoagulation, based on Xa activity inhibition, is an APTT of 46-80 seconds. Performed By: #### L [id number], [id number] ####Blow Pit Operator: FENG CONSTANTINO ([phone])[facility] ([facility])[address] [place] [address] Absolute lymphocyte countOrd ered By: Kayley Melendrez on 02-20-2025 Lymphocytes Auto (Unsp spec) [#/Vol] 1.13 10*3/uL 0.83-4.51 [facility] Absolute neutrophil countOrd ered By: Kayley Melendrez on 02-20-2025 Neutrophils (Bld) [#/Vol] 4.6 10*3/uL 2.0-7.7 [facility] Anion gap in Serum or Plasma Ordered By: Kayley Melendrez on 02-20-2025 Anion gap [Moles/Vol] 12 mmol/L 5-15 [facility] Automated lymphocyte count a s percentage of total leukocytesOrdered By: Kayley Melendrez on 02-20-2025 Lymphocytes/100 WBC Auto (Unsp spec) 16.4 % Low 19-41 [facility] BASIC METABOLIC PANELon 05-2 Anion gap [Moles/Vol] 12 mmol/L Normal 3-13 [facility] Comment on above: Performed By: #### L AB15 ####Blow Pit Operator: FENG CONSTANTINO ([phone])[facility])[address] Calcium [Mass/Vol] 9.6 mg/dL Normal 8.4-10.2 [facility] Comment on above: Performed By: #### L AB15 ####Blow Pit Operator: FENG CONSTANTINO ([phone])[facility] ([facility])[address] Chloride [Moles/Vol] 92 mmol/L Low 98-107 [facility] Comment on above: Performed By: #### L AB15 ####Blow Pit Operator: FENG CONSTANTINO ([phone])[facility] ([facility])[address] CO2 [Moles/Vol] 29 mmol/L Normal 22-29 [facility] Comment on above: Performed By: #### L AB15 ####Blow Pit Operator: FENG CONSTANTINO ([phone])[facility] ([facility])[address] Creatinine [Mass/Vol] 2.57 mg/dL High 0.72-1.25 [facility] Comment on above: Performed By: #### L AB15 ####Blow Pit Operator: FENG CONSTANTINO ([phone])[facility] ([facility])[address] [place] [address] [place] GLOMERULAR FILTRATION RATE ML/MIN/1.73 SQ M.PREDICTED 27.9 mL/min/1.73m*2 Low >60.0 [facility] Comment on above: Result Comment: Calc ulation based on the Chronic Kidney Disease Epidemiology Collaboration (CKD-EPI) equation refit without adjustment for race Performed By: #### L AB15 ####Blow Pit Operator: FENG CONSTANTINO ([phone])[facility] ([facility])[address] Glucose [Mass/Vol] 80 mg/dL Normal 74-100 [facility] Comment on above: Performed By: #### L AB15 ####Blow Pit Operator: FENG CONSTANTINO ([phone])[facility] ([facility])[address] Potassium [Moles/Vol] 3.1 mmol/L Low 3.5-5.1 [facility] Comment on above: Result Comment: [facility] potassium values may be up to 0.5 mmol/L lower than serum values. Performed By: #### L AB15 ####Blow Pit Operator: FENG CONSTANTINO ([phone])[facility] ([facility])[address] Sodium [Moles/Vol] 133 mmol/L Low 136-145 [facility] Comment on above: Performed By: #### L AB15 ####Blow Pit Operator: FENG CONSTANTINO ([phone])[facility] ([facility])[address] Urea nitrogen [Mass/Vol] 29 mg/dL High 9-23 [facility] Comment on above: Performed By: #### L AB15 ####Blow Pit Operator: FENG CONSTANTINO ([phone])[facility] ([facility])[address] BUN/creatinine ratioOrdered By: Kayley Melendrez on 02-20-2025 Urea nitrogen/Creatinine [Mass ratio] 11.5 mg/mg 10-20 [facility] Basic metabolic 1998 panelon 02-20-2025 Anion gap [Moles/Vol] 12 mmol/L 3 - 13 mmol/L [facility] Calcium [Mass/Vol] 9.6 mg/dL 8.4 - 10. 2 mg/dL [facility] Chloride [Moles/Vol] 92 mmol/L Low 98 - 10 7 mmol/L [facility] CO2 [Moles/Vol] 29 mmol/L 22 - 29 mmol/L [facility] Creatinine [Mass/Vol] 2.57 mg/dL High 0.72 - 1.25 mg/dL [facility] GFR/1.73 sq M.predicted (S/P/Bld) [Vol rate/Area] 27.9 mL/min Low - PINF [facility] Glucose [Mass/Vol] 80 mg/dL 74 - 100 mg/dL [facility] Interpretation and review of laboratory results Abnormal [facility] Potassium [Moles/Vol] 3.1 mmol/L Low 3.5 - 5.1 mmol/L [facility] Sodium [Moles/Vol] 133 mmol/L Low 136 - 145 mmol/L [facility] Urea nitrogen [Mass/Vol] 29 mg/dL High 9 - 23 mg/d L [facility] Basophil percentageOrdered B y: Kayley Melendrez on 02-20-2025 Basophils/100 WBC (Bld) 1.4 % High 0-1 [facility] Bilirubin, totalOrdered By: Kayley Melendrez on 02-20-2025 Bilirubin [Mass/Vol] 0.64 mg/dL 0.00-1.30 [facility] CBC (HEMOGRAM)on 02-20-2025 Erythrocyte distribution width (RBC) [Ratio] 18.8 % High 11.5-15.0 [facility] Comment on above: Performed By: #### L AB294 ####Blow Pit Operator: FENG [phone])[facility] ([facility])[address] [place] [address] Hematocrit (Bld) [Volume fraction] 26.8 % Low 40.0-52.0 [facility] Comment on above: Performed By: #### L AB294 ####Blow Pit Operator: FENG CONSTANTINO ([phone])[facility] [place] [address] Hemoglobin (Bld) [Mass/Vol] 8.7 g/dL Low 13.0-18.0 [facility] Comment on above: Performed By: #### L AB294 ####Blow Pit Operator: FENG CONSTANTINO ([phone])[facility] ([facility])[address] MCH (RBC) [Entitic mass] 28.7 pg Normal 26.0-34.0 [facility] Comment on above: Performed By: #### L AB294 ####Blow Pit Operator: FENG CONSTANTINO ([phone])[facility] ([facility])[address] MCHC 32.5 % Normal 30.5-36.0 [facility] Comment on above: Performed By: #### L AB294 ####Blow Pit Operator: FENG CONSTANTINO ([phone])[facility] ([facility])[address] MCV (RBC) [Entitic vol] 88.4 fL Normal 77.0-99.0 [facility] Comment on above: Performed By: #### L AB294 ####Blow Pit Operator: FENG CONSTANTINO ([phone])[facility] ([facility])[address] Platelet mean volume (Bld) [Entitic vol] 8.5 fL Low 9.0-12.7 [facility] Comment on above: Performed By: #### L AB294 ####Blow Pit Operator: FENG CONSTANTINO ([phone])[facility] ([facility])[address] [place] [address] [place] Platelets (Bld) [#/Vol] 312 10*3/uL Normal 140-440 [facility] Comment on above: Performed By: #### L AB294 ####Blow Pit Operator: FENG CONSTANTINO ([phone])[facility] ([facility])[address] RBC (Bld) [#/Vol] 3.03 10*6/uL Low 4.40-5.90 [facility] Comment on above: Performed By: #### L AB294 ####Blow Pit Operator: FENG CONSTANTINO ([phone])[facility] ([facility])[address] [place] [address] WBC (Bld) [#/Vol] 9.4 10*3/uL Normal 3.6-10.7 [facility] Comment on above: Performed By: #### L AB294 ####Blow Pit Operator: FENG CONSTANTINO ([phone])[facility] ([facility])[address] [place] [address] CBC W/Diff, Automatedon 05-2 Absolute Lymph 1.13 X10 3/uL Normal 0.83-4.51 [facility] Comment on above: Order Comment: 413.2 Performed By: #### L 500.4050, L300.3900, L100.0100 #### [facility] [address] [place], [address] Absolute Neut 4.6 X10 3/uL Normal 2.0-7.7 [facility] Comment on above: Order Comment: 413.2 Performed By: #### L 500.4050, L300.3900, L100.0100 #### [facility] [address] [place], [address] Basophils/100 WBC (Bld) 1.4 % High 0-1 [facility] Comment on above: Order Comment: 413.2 Performed By: #### L 500.4050, L300.3900, L100.0100 #### [facility] [address] [place], [address] Eosinophils/100 WBC (Bld) 2.5 % Normal 0-5 [facility] Comment on above: Order Comment: 413.2 Performed By: #### L 500.4050, L300.3900, L100.0100 #### [facility] [address] [place], [address] Erythrocyte distribution width (RBC) [Ratio] 19.4 % High 11.6-14.6 [facility] Comment on above: Order Comment: 413.2 Performed By: #### L 500.4050, L300.3900, L100.0100 #### [facility] [address] [place], [address] Hematocrit (Bld) [Volume fraction] 25.9 % Low 40-54 [facility] Comment on above: Order Comment: 413.2 Performed By: #### L 500.4050, L300.3900, L100.0100 #### [facility] [address] [place], [address] Hemoglobin (Bld) [Mass/Vol] 8.5 g/dL Low 13.0-16.5 [facility] Comment on above: Order Comment: 413.2 Performed By: #### L 500.4050, L300.3900, L100.0100 #### [facility] [address] [place], [address] IG% 0.400 Normal 0.0-0.9 [facility] Comment on above: Order Comment: 413.2 Result Comment: IG% - Immature Granulocytes (promyelocytes, myelocytes and metamyelocytes) > 1% indicates that a LEFT SHIFT is Present. Performed By: #### L 500.4050, L300.3900, L100.0100 #### [facility] [address] [place], [address] Lymphocytes/100 WBC (Bld) 16.4 % Low 19-41 [facility] Comment on above: Order Comment: 413.2 Performed By: #### L 500.4050, L300.3900, L100.0100 #### [facility] [address] [place], [address] MCH (RBC) [Entitic mass] 30.1 pg Normal 27.0-32.0 [facility] Comment on above: Order Comment: 413.2 Performed By: #### L 500.4050, L300.3900, L100.0100 #### [facility] [address] [place], [address] MCHC (RBC) [Mass/Vol] 32.8 g/dL Normal 32-36 [facility] Comment on above: Order Comment: 413.2 Performed By: #### L 500.4050, L300.3900, L100.0100 #### [facility] [address] [place], [address] MCV (RBC) [Entitic vol] 91.8 fL Normal 80-94 [facility] Comment on above: Order Comment: 413.2 Performed By: #### L 500.4050, L300.3900, L100.0100 #### [facility] [address] [place], [address] Monocytes/100 WBC (Bld) 12.0 % High 0-10 [facility] Comment on above: Order Comment: 413.2 Performed By: #### L 500.4050, L300.3900, L100.0100 #### [facility] [address] [place], [address] Neutrophils/100 WBC (Bld) 67.3 % Normal 47-70 [facility] Comment on above: Order Comment: 413.2 Performed By: #### L 500.4050, L300.3900, L100.0100 #### [facility] [address] [place], [address] Nucleated RBC (Bld) [#/Vol] 0 10*3/uL Normal 0-5 [facility] Comment on above: Order Comment: 413.2 Performed By: #### L 500.4050, L300.3900, L100.0100 #### [facility] [address] [place], [address] Platelet mean volume (Bld) [Entitic vol] 9.0 fL Normal 6.2-12.0 [facility] Comment on above: Order Comment: 413.2 Performed By: #### L 500.4050, L300.3900, L100.0100 #### [facility] [address] [place], [address] Platelets (Bld) [#/Vol] 322 10*3/uL Normal 150-450 [facility] Comment on above: Order Comment: 413.2 Performed By: #### L 500.4050, L300.3900, L100.0100 #### [facility] [address] [place], [address] RBC (Bld) [#/Vol] 2.82 10*6/uL Low 4.6-6.2 [facility] Comment on above: Order Comment: 413.2 Performed By: #### L 500.4050, L300.3900, L100.0100 #### [facility] [address] [place], [address] RDW SD 63.5 fl High 35.1-43.9 [facility] Comment on above: Order Comment: 413.2 Performed By: #### L 500.4050, L300.3900, L100.0100 #### [facility] [address] [place], [address] WBC (Bld) [#/Vol] 6.9 10*3/uL Normal 4.4-11.0 [facility] Comment on above: Order Comment: 413.2 Performed By: #### L 500.4050, L300.3900, L100.0100 #### [facility] [address] [place], [address] CBC panel Auto (Bld)on 02-20 Erythrocyte distribution width (RBC) [Ratio] 18.8 % High 11.5 - 15.0 % [facility] Hematocrit (Bld) [Volume fraction] 26.8 % Low 40.0 - 52.0 % [facility] Hemoglobin (Bld) [Mass/Vol] 8.7 g/dL Low 13.0 - 18.0 g/dL [facility] Interpretation and review of laboratory results Abnormal [facility] MCH (RBC) [Entitic mass] 28.7 pg 26. 0 - 34.0 pg [facility] MCHC (RBC) [Mass/Vol] 32.5 % 30.5 - 36.0 % [facility] MCV (RBC) [Entitic vol] 88.4 fL 77.0 - 99.0 fL [facility] Platelet mean volume (Bld) [Entitic vol] 8.5 fL Low 9.0 - 12.7 fL [facility] Platelets (Bld) [#/Vol] 312 10*3/uL 140 - 440 10*3/uL [facility] RBC (Bld) [#/Vol] 3.03 10*6/uL Low 4.40 - 5.9 0 10*6/uL [facility] WBC (Bld) [#/Vol] 9.4 10*3/uL 3.6 - 10.7 10*3/uL [facility] CT CHEST ANGIOGRAM W AND/OR WO IV CONTRASTon 02-20-2025 CT CHEST ANGIOGRAM W AND/OR WO IV CONTRAST Normal [facility] CTA Chest vessels WO and W c ontrast Dimitrios 02-20-2025 [facility] Radiology Study observation (narrative) [facility] CTA Chest vessels WO and W c ontrast IVOrdered By: Justo Milan on 02-20-2025 [facility] Work Phone: Carbon dioxide, total [Moles /volume] in Central venous bloodOrdered By: Kayley Melendrez on 02-20-2025 CO2 [Moles/Vol] 30.1 mmol/L 21.0-32.0 [facility] Chloride assayOrdered By: Leisa Melendrez on 02-20-2025 Chloride [Moles/Vol] 91 mmol/L Low 98-108 [facility] Comprehensive Metabolic Prof ilon 02-20-2025 Albumin [Mass/Vol] 3.0 g/dL Low 3.5-5.0 [facility] Comment on above: Order Comment: 413.2 Performed By: #### L 500.4050, L300.3900, L100.0100 #### [facility] [address] [place], [address] Albumin/Globulin [Mass ratio] 0.8 {ratio} Low 0.9-2.4 [facility] Comment on above: Order Comment: 413.2 Performed By: #### L 500.4050, L300.3900, L100.0100 #### [facility] [address] [place], [address] ALK PHOS 133 U/L High 40-129 [facility] Comment on above: Order Comment: 413.2 Performed By: #### L 500.4050, L300.3900, L100.0100 #### [facility] [address] [place], [address] ALT [Catalytic activity/Vol] 13 U/L Normal <=46 [facility] Comment on above: Order Comment: 413.2 Performed By: #### L 500.4050, L300.3900, L100.0100 #### [facility] [address] [place], [address] AST [Catalytic activity/Vol] 32 U/L Normal <=37 [facility] Comment on above: Order Comment: 413.2 Performed By: #### L 500.4050, L300.3900, L100.0100 #### [facility] [address] [place], [address] Bilirubin [Mass/Vol] 0.64 mg/dL Normal 0.00-1.30 [facility] Comment on above: Order Comment: 413.2 Performed By: #### L 500.4050, L300.3900, L100.0100 #### [facility] [address] [place], [address] BUN/CRE 11.5 RATIO Normal 10-20 [facility] Comment on above: Order Comment: 413.2 Performed By: #### L 500.4050, L300.3900, L100.0100 #### [facility] [address] [place], [address] Calcium [Mass/Vol] 9.8 mg/dL Normal 7.6-11.0 [facility] Comment on above: Order Comment: 413.2 Performed By: #### L 500.4050, L300.3900, L100.0100 #### [facility] [address] [place], [address] Chloride [Moles/Vol] 91 mmol/L Low 98-108 [facility] Comment on above: Order Comment: 413.2 Performed By: #### L 500.4050, L300.3900, L100.0100 #### [facility] [address] [place], [address] CO2 [Moles/Vol] 30.1 mmol/L Normal 21.0-32.0 [facility] Comment on above: Order Comment: 413.2 Performed By: #### L 500.4050, L300.3900, L100.0100 #### [facility] [address] [place], [address] Creatinine [Mass/Vol] 3.87 mg/dL High 0.70-1.20 [facility] [place] [facility] Comment on above: Order Comment: 413.2 Performed By: #### L 500.4050, L300.3900, L100.0100 #### [facility] [address] [place], [address] GAP 12 Normal 5-15 [facility] Comment on above: Order Comment: 413.2 Performed By: #### L 500.4050, L300.3900, L100.0100 #### [facility] [address] [place], [address] GFR/1.73 sq M.predicted among non-blacks MDRD (S/P/Bld) [Vol rate/Area] 17 mL/min/{1.73_m2} Low >60 [facility] Comment on above: Order Comment: 413.2 Result Comment: mL/m in/1.73m2 CKD-EPI Creatinine Equation (2020) Performed By: #### L 500.4050, L300.3900, L100.0100 #### [facility] [address] [place], [address] Globulin (S) [Mass/Vol] 4.0 g/dL Normal 2.2-4.2 [facility] Comment on above: Order Comment: 413.2 Performed By: #### L 500.4050, L300.3900, L100.0100 #### [facility] [address] [place], [address] Glucose [Mass/Vol] 78 mg/dL Normal 70-99 [facility] Comment on above: Order Comment: 413.2 Performed By: #### L 500.4050, L300.3900, L100.0100 #### [facility] [address] [place], [address] Potassium [Moles/Vol] 3.0 mmol/L Low 3.3-5.1 [facility] [place] [facility] Comment on above: Order Comment: 413.2 Performed By: #### L 500.4050, L300.3900, L100.0100 #### [facility] [address] [place], [address] Sodium [Moles/Vol] 134 mmol/L Normal 133-145 [facility] Comment on above: Order Comment: 413.2 Performed By: #### L 500.4050, L300.3900, L100.0100 #### [facility] [address] [place], [address] T PROT 6.9 g/dL Normal 5.9-8.4 [facility] Comment on above: Order Comment: 413.2 Performed By: #### L 500.4050, L300.3900, L100.0100 #### [facility] [address] [place], [address] Urea nitrogen [Mass/Vol] 44 mg/dL High 4-19 [facility] Comment on above: Order Comment: 413.2 Performed By: #### L 500.4050, L300.3900, L100.0100 #### [facility] [address] [place], [address] ED Nursing Noteon 02-20-2025 ED Nursing Note Called report to 3W nurse who will be taking over pt care. Normal [facility] ED Nursing Note Attempted to reposition pt and have him sit up but pt states "he feels fine and does not want to sit up"despite coughing up blood. Normal [facility] ED Nursing Note Pt placed on 2L NC due to O2 saturation of 90%. Currently 97 on 2L Normal [facility] ED Nursing Note Suction turned on at this time for pt due to increased coughing up of blood Normal [facility] ED Nursing Note Normal [facility] ED Nursing Note Normal [facility] ED Provider Noteon ED Provider Note Normal [facility] Eosinophil percentageOrdered By: Kayley Melendrez on 02-20-2025 Eosinophils/100 WBC (Bld) 2.5 % 0-5 [facility] Erythrocyte distribution wid th ratioOrdered By: Kayley Melendrez on 02-20-2025 Erythrocyte distribution width (RBC) [Ratio] 19.4 % High 11.6-14.6 [facility] Erythrocyte distribution wid th standard deviationOrdered By: Kayley Melendrez on 02-20-2025 Erythrocyte distribution width (RBC) [Ratio] 63.5 fl High 35.1-43.9 [facility] Glomerular filtration rate ( GFR) estimation/1.73 sq m using serum, plasma, or whole bOrdered By: Kayley Melendrez on 02-20-2025 GFR/1.73 sq M.predicted among non-blacks MDRD (S/P/Bld) [Vol rate/Area] 17 mL/min/{1.73_m2} Low >60 [facility] Comment on above: mL/min/1.73m2 CKD-EP I Creatinine Equation (2020) Hematocrit Auto (Bld) [Volum e fraction]Ordered By: Kayley Melendrez on 02-20-2025 Hematocrit (Bld) [Volume fraction] 25.9 % Low 40-54 [facility] Hemoglobin measurementOrdere d By: Kayley Melendrez on 02-20-2025 Hemoglobin (Bld) [Mass/Vol] 8.5 g/dL Low 13.0-16.5 [facility] Immature granulocytes/100 WB C Auto (Bld)Ordered By: Kayley Melendrez on 02-20-2025 Immature granulocytes/100 WBC (Bld) 0.400 % 0.0-0.9 [facility] Comment on above: IG% - Immature Granu locytes (promyelocytes, myelocytes and metamyelocytes) > 1% indicates that a LEFT SHIFT is Present. International normalized rat io (INR) calculationOrdered By: Kayley Melendrez on 02-20-2025 INR Coag (Bld) [Relative time] 1.4 {INR} [facility] - Chemistry and C hemistry - challengeOrdered By: Kayley Melendrez on 02-20-2025 AST [Catalytic activity/Vol] 32 U/L <38 [facility] - Coagulationon 0 02-20-2025 PT Coag (Bld) [Time] 14.7 s High 9.0 - 12.0 s [facility] MCV (mean corpuscular volume ) determinationOrdered By: Kayley Melendrez on 02-20-2025 MCV (RBC) [Entitic vol] 91.8 fL 80-94 [facility] Mean corpuscular hemoglobin (MCH) determinationOrdered By: Kayley Melendrez on 02-20-2025 MCH (RBC) [Entitic mass] 30.1 pg 27.0-32.0 [facility] Mean corpuscular hemoglobin concentration (MCHC) determinationOrdered By: Kayley Melendrez on 02-20-2025 MCHC (RBC) [Mass/Vol] 32.8 g/dL 32-36 [facility] [place] [facility] Mean platelet volume determi nationOrdered By: Kayley Melendrez on 02-20-2025 Platelet mean volume (Bld) [Entitic vol] 9.0 fL 6.2-12.0 [facility] Monocyte percentageOrdered B y: Kayley Melendrez on 02-20-2025 Monocytes/100 WBC (Bld) 12.0 % High 0-10 [facility] Neutrophil percentageOrdered By: [facility] on 02-20-2025 Neutrophils/100 WBC (Bld) 67.3 % 47-70 [facility] No Panel Informationon 02-20 [facility] Nucleated red blood cell per centageOrdered By: Kayley Melendrez on 02-20-2025 Nucleated RBC/100 WBC (Bld) [Ratio] 0 % 0-5 [facility] Nursing Noteon 02-20-2025 Nursing Note Pt arrived on floor via [employer] transport Normal [facility] PROTHROMBIN TIMEon INR Coag (PPP) [Relative time] 1.4 {INR} High 0.9-1.1 [facility] Comment on above: Result Comment: Vaughn [...] Myocardial Infarction Performed By: #### L [id number], [id number] ####Blow Pit Operator: FENG CONSTANTINO ([phone])[facility] ([facility])[address] [place] [address] PT Coag (PPP) [Time] 14.7 s High 9.0-12.0 [facility] Comment on above: Performed By: #### L [id number], [id number] ####Blow Pit Operator: FENG CONSTANTINO ([phone])[facility] ([facility])[address] [place] [address] PT Coag (Bld) [Time]on 02-20 INR Coag (PPP) [Relative time] 1.4 {INR} High 0.9 - 1.1 [facility] Interpretation and review of laboratory results Abnormal [facility] Platelet countOrdered By: Leisa Melendrez on 02-20-2025 Platelets (Bld) [#/Vol] 322 10*3/uL 150-450 [facility] Potassium measurement (mass/ volume)Ordered By: Kayley Melendrez on 02-20-2025 Potassium (Unsp spec) [Mass/Vol] 3.0 mmol/L Low 3.3-5.1 [facility] Prothrombin Time w/INRon INR Coag (PPP) [Relative time] 1.4 {INR} Normal [facility] Comment on above: Order Comment: 413.2 Performed By: #### L 9200.0000 #### [facility] [address] [place], [place], [id number] PT Coag (PPP) [Time] 17.5 s High 11.7-14.9 [facility] Comment on above: Order Comment: 413.2 Performed By: #### L 9200.0000 #### [facility] [address] [place], [place], [id number] Prothrombin timeOrdered By: Kayley Melendrez on 02-20-2025 PT Coag (PPP) [Time] 17.5 s High 11.7-14.9 [facility] RBC Auto (Bld) [#/Vol]Ordere d By: Kayley Melendrez on 02-20-2025 RBC (Bld) [#/Vol] 2.82 10*6/uL Low 4.6-6.2 [facility] Serum creatinine measurement (mass/volume)Ordered By: Kayley Melendrez on 02-20-2025 Creatinine [Mass/Vol] 3.87 mg/dL High 0.70-1.20 [facility] [place] [facility] Serum globulin measurementOr dered By: Kayley Melendrez on 02-20-2025 Globulin (S) [Mass/Vol] 4.0 g/dL 2.2-4.2 [facility] Serum glucose measurement (m ass/volume)Ordered By: Kayley Melendrez on 02-20-2025 Glucose [Mass/Vol] 78 mg/dL 70-99 [facility] Serum or plasma alanine mayorga otransferase (ALT) measurementOrdered By: Kayley Melendrez on 02-20-2025 ALT [Catalytic activity/Vol] 13 U/L <47 [facility] Serum or plasma albumin audrey urement (mass/volume)Ordered By: Kayley Melendrez on 02-20-2025 Albumin [Mass/Vol] 3.0 g/dL Low 3.5-5.0 [facility] Serum or plasma albumin/glob ulin mass ratioOrdered By: Kayley Melendrez on 02-20-2025 Albumin/Globulin [Mass ratio] 0.8 {ratio} Low 0.9-2.4 [facility] Serum or plasma alkaline jacob sphatase measurementOrdered By: Kayley Melendrez on 02-20-2025 ALP [Catalytic activity/Vol] 133 U/L High 40-129 [facility] Serum or plasma calcium audrey urement (mass/volume)Ordered By: Kayley Melendrez on 02-20-2025 Calcium [Mass/Vol] 9.8 mg/dL 7.6-11.0 [facility] Serum or plasma urea nitroge n measurement (mass/volume)Ordered By: Kayley Melendrez on 02-20-2025 Urea nitrogen [Mass/Vol] 44 mg/dL High 4-19 [facility] Sodium levelOrdered By: Omega Melendrez on 02-20-2025 Sodium [Moles/Vol] 134 mmol/L 133-145 [facility] Total proteinOrdered By: Lexis Melendrez on 02-20-2025 Protein [Mass/Vol] 6.9 g/dL 5.9-8.4 [facility] White blood cell (WBC) count Ordered By: Kayley Melendrez on 02-20-2025 WBC (Bld) [#/Vol] 6.9 10*3/uL 4.4-11.0 [facility] aPTT Coag (Bld) [Time]on aPTT Coag (PPP) [Time] 26.2 s 20.0 - 30.5 s [facility] Interpretation and review of laboratory results Normal [facility] International normalized rat io (INR) calculationOrdered By: Kayley Melendrez on 02-15-2025 INR Coag (Bld) [Relative time] 1.3 {INR} [facility] Prothrombin Time w/INRon INR Coag (PPP) [Relative time] 1.3 {INR} Normal [facility] Comment on above: Order Comment: 413.2 Performed By: #### L 9200.0000 #### [facility] [address] [place], [place], [id number] PT Coag (PPP) [Time] 16.6 s High 11.7-14.9 [facility] Comment on above: Order Comment: 413.2 Performed By: #### L 9200.0000 #### [facility] [address] [place], [place], [id number] Prothrombin timeOrdered By: Kayley Melendrez on 02-15-2025 PT Coag (PPP) [Time] 16.6 s High 11.7-14.9 [facility] Nursing Noteon 02-14-2025 Nursing Note Normal [facility] Progress Noteon 02-14-2025 Progress Note Patient completed 6 week course of Amp-Sulbactam on 02/13/25 for sacral osteomyelitis. Tunneled line has since been removed. Continue to monitor off antibiotics at this time. Continue wound care. Normal [facility] Progress Note Normal [facility] International normalized rat io (INR) measurement by fingerstickOrdered By: Kayley Melendrez on 02-13-2025 INR Coag (BldC) [Relative time] 1.7 [facility] Comment on above: Critical Value > 4.0 Protime w/INR Fingerstickon 02-13-2025 INR Coag (PPP) [Relative time] 1.7 {INR} Normal [facility] Comment on above: Result Comment: Crit ical Value > 4.0 Performed By: #### L 9200.0000 #### [facility] [address] [place], [place], [id number] Protime Coagsen 19.1 SEC High 11.7-14.9 [facility] Comment on above: Performed By: #### L 9200.0000 #### [facility] [address] [place], [address] Whole blood prothrombin time Ordered By: Kayley Melendrez on 02-13-2025 PT Coag (Bld) [Time] 19.1 s High 11.7-14.9 [facility] Absolute lymphocyte countOrd ered By: Kayley Melendrez on 02-12-2025 Lymphocytes Auto (Unsp spec) [#/Vol] 1.29 10*3/uL 0.83-4.51 [facility] Absolute neutrophil countOrd ered By: Kayley Melendrez on 02-12-2025 Neutrophils (Bld) [#/Vol] 4.7 10*3/uL 2.0-7.7 [facility] Anion gap in Serum or Plasma Ordered By: Kayley Melendrez on 02-12-2025 Anion gap [Moles/Vol] 12 mmol/L 5-15 [facility] [place] [facility] Automated lymphocyte count a s percentage of total leukocytesOrdered By: Kayley Melendrez on 02-12-2025 Lymphocytes/100 WBC Auto (Unsp spec) 17.7 % Low - [facility] BUN/creatinine ratioOrdered By: Kayley Melendrez on 02-12-2025 Urea nitrogen/Creatinine [Mass ratio] 10.3 mg/mg 10- [facility] Basophil percentageOrdered B y: Kayley Dawsonmatt on 02-12-2025 Basophils/100 WBC (Bld) 1.1 % High 0-1 [facility] Bilirubin, totalOrdered By: Kayley Melendrez on 02-12-2025 Bilirubin [Mass/Vol] 0.69 mg/dL 0.00-1.30 [facility] CBC W/Diff, Automatedon 01-25 Absolute Lymph 1.29 X10 3/uL Normal 0.83-4.51 [facility] Comment on above: Performed By: #### L 9200.0000 #### [facility] [address] [place], [address] Absolute Neut 4.7 X10 3/uL Normal 2.0-7.7 [facility] Comment on above: Performed By: #### L 9200.0000 #### [facility] [address] [place], [address] Basophils/100 WBC (Bld) 1.1 % High 0-1 [facility] Comment on above: Performed By: #### L 9200.0000 #### [facility] [address] [place], [address] Eosinophils/100 WBC (Bld) 4.7 % Normal 0-5 [facility] Comment on above: Performed By: #### L 9200.0000 #### [facility] [address] [place], [address] Erythrocyte distribution width (RBC) [Ratio] 18.3 % High 11.6-14.6 [facility] Comment on above: Performed By: #### L 9200.0000 #### [facility] [address] [place], [address] Hematocrit (Bld) [Volume fraction] 24.6 % Low 40-54 [facility] Comment on above: Performed By: #### L 9200.0000 #### [facility] [address] [place], [address] Hemoglobin (Bld) [Mass/Vol] 8.0 g/dL Low 13.0-16.5 [facility] Comment on above: Performed By: #### L 9200.0000 #### [facility] [address] [place], [address] IG% 0.500 Normal 0.0-0.9 [facility] Comment on above: Result Comment: IG% - Immature Granulocytes (promyelocytes, myelocytes and metamyelocytes) > 1% indicates that a LEFT SHIFT is Present. Performed By: #### L 9200.0000 #### [facility] [address] [place], [address] Lymphocytes/100 WBC (Bld) 17.7 % Low 19-41 [facility] Comment on above: Performed By: #### L 9200.0000 #### [facility] [address] [place], [address] MCH (RBC) [Entitic mass] 29.3 pg Normal 27.0-32.0 [facility] Comment on above: Performed By: #### L 9200.0000 #### [facility] [address] [place], [address] MCHC (RBC) [Mass/Vol] 32.5 g/dL Normal 32-36 [facility] [place] [facility] Comment on above: Performed By: #### L 9200.0000 #### [facility] [address] [place], [address] MCV (RBC) [Entitic vol] 90.1 fL Normal 80-94 [facility] Comment on above: Performed By: #### L 9200.0000 #### [facility] [address] [place], [address] Monocytes/100 WBC (Bld) 11.9 % High 0-10 [facility] Comment on above: Performed By: #### L 9200.0000 #### [facility] [address] [place], [address] Neutrophils/100 WBC (Bld) 64.1 % Normal 47-70 [facility] Comment on above: Performed By: #### L 9200.0000 #### [facility] [address] [place], [address] Nucleated RBC (Bld) [#/Vol] 0 10*3/uL Normal 0-5 [facility] Comment on above: Performed By: #### L 9200.0000 #### [facility] [address] [place], [address] Platelet mean volume (Bld) [Entitic vol] 9.2 fL Normal 6.2-12.0 [facility] Comment on above: Performed By: #### L 9200.0000 #### [facility] [address] [place], [address] Platelets (Bld) [#/Vol] 294 10*3/uL Normal 150-450 [facility] Comment on above: Performed By: #### L 9200.0000 #### [facility] [address] [place], [address] RBC (Bld) [#/Vol] 2.73 10*6/uL Low 4.6-6.2 [facility] Comment on above: Performed By: #### L 9200.0000 #### [facility] [address] [place], [address] RDW SD 59.4 fl High 35.1-43.9 [facility] Comment on above: Performed By: #### L 9200.0000 #### [facility] [address] [place], [address] WBC (Bld) [#/Vol] 7.3 10*3/uL Normal 4.4-11.0 [facility] Comment on above: Performed By: #### L 9200.0000 #### [facility] [address] [place], [place], [address] Carbon dioxide, total [Moles /volume] in Central venous bloodOrdered By: Kayley Melendrez on 02-12-2025 CO2 [Moles/Vol] 28.4 mmol/L 21.0-32.0 [facility] Chloride assayOrdered By: Leisa Melendrez on 02-12-2025 Chloride [Moles/Vol] 91 mmol/L Low 98-108 [facility] Comprehensive Metabolic Prof ilon 02-12-2025 Albumin [Mass/Vol] 2.9 g/dL Low 3.5-5.0 [facility] Comment on above: Performed By: #### L 9200.0000 #### [facility] [address] [place], [place], [id number] Albumin/Globulin [Mass ratio] 0.7 {ratio} Low 0.9-2.4 [facility] Comment on above: Performed By: #### L 9200.0000 #### [facility] [address] [place], [place], [address] ALK PHOS 177 U/L High 40-129 [facility] Comment on above: Performed By: #### L 9200.0000 #### [facility] [address] [place], [place], [id number] ALT [Catalytic activity/Vol] 9 U/L Normal <=46 [facility] Comment on above: Performed By: #### L 9200.0000 #### [facility] [address] [place], [address] AST [Catalytic activity/Vol] 34 U/L Normal <=37 [facility] Comment on above: Performed By: #### L 9200.0000 #### [facility] [address] [place], [address] Bilirubin [Mass/Vol] 0.69 mg/dL Normal 0.00-1.30 [facility] Comment on above: Performed By: #### L 9200.0000 #### [facility] [address] [place], [address] BUN/CRE 10.3 RATIO Normal 10-20 [facility] Comment on above: Performed By: #### L 9200.0000 #### [facility] [address] [place], [address] Calcium [Mass/Vol] 9.9 mg/dL Normal 7.6-11.0 [facility] Comment on above: Performed By: #### L 9200.0000 #### [facility] [address] [place], [address] Chloride [Moles/Vol] 91 mmol/L Low 98-108 [facility] Comment on above: Performed By: #### L 9200.0000 #### [facility] [address] [place], [address] CO2 [Moles/Vol] 28.4 mmol/L Normal 21.0-32.0 [facility] Comment on above: Performed By: #### L 9200.0000 #### [facility] [address] [place], [address] Creatinine [Mass/Vol] 4.17 mg/dL High 0.70-1.20 [facility] [place] [facility] Comment on above: Performed By: #### L 9200.0000 #### [facility] [address] [place], [address] GAP 12 Normal 5-15 [facility] Comment on above: Performed By: #### L 9200.0000 #### [facility] [address] [place], [address] GFR/1.73 sq M.predicted among non-blacks MDRD (S/P/Bld) [Vol rate/Area] 16 mL/min/{1.73_m2} Low >60 [facility] Comment on above: Result Comment: mL/m in/1.73m2 CKD-EPI Creatinine Equation (2020) Performed By: #### L 9200.0000 #### [facility] [address] [place], [address] Globulin (S) [Mass/Vol] 4.2 g/dL Normal 2.2-4.2 [facility] Comment on above: Performed By: #### L 9200.0000 #### [facility] [address] [place], [address] Glucose [Mass/Vol] 77 mg/dL Normal 70-99 [facility] Comment on above: Performed By: #### L 9200.0000 #### [facility] [address] [place], [address] Potassium [Moles/Vol] 3.2 mmol/L Low 3.3-5.1 [facility] [place] [facility] Comment on above: Performed By: #### L 9200.0000 #### [facility] [address] [place], [address] Sodium [Moles/Vol] 131 mmol/L Low 133-145 [facility] Comment on above: Performed By: #### L 9200.0000 #### [facility] [address] [place], [address] T PROT 7.1 g/dL Normal 5.9-8.4 [facility] Comment on above: Performed By: #### L 9200.0000 #### [facility] [address] [place], [address] Urea nitrogen [Mass/Vol] 43 mg/dL High - [facility] Comment on above: Performed By: #### L 9200.0000 #### [facility] [address] [place], [address] Eosinophil percentageOrdered By: Kayley Melendrez on 02-12-2025 Eosinophils/100 WBC (Bld) 4.7 % 0-5 [facility] Erythrocyte distribution wid th ratioOrdered By: Kayley Melendrez on 02-12-2025 Erythrocyte distribution width (RBC) [Ratio] 18.3 % High 11.6-14.6 [facility] Erythrocyte distribution wid th standard deviationOrdered By: Kayley Melendrez on 02-12-2025 Erythrocyte distribution width (RBC) [Ratio] 59.4 fl High 35.1-43.9 [facility] Glomerular filtration rate ( GFR) estimation/1.73 sq m using serum, plasma, or whole bOrdered By: Kayley Melendrez on 02-12-2025 GFR/1.73 sq M.predicted among non-blacks MDRD (S/P/Bld) [Vol rate/Area] 16 mL/min/{1.73_m2} Low >60 [facility] Comment on above: mL/min/1.73m2 CKD-EP I Creatinine Equation (2020) Hematocrit Auto (Bld) [Volum e fraction]Ordered By: Kayley Melendrez on 02-12-2025 Hematocrit (Bld) [Volume fraction] 24.6 % Low 40-54 [facility] Hemoglobin measurementOrdere d By: Kayley Melendrez on 02-12-2025 Hemoglobin (Bld) [Mass/Vol] 8.0 g/dL Low 13.0-16.5 [facility] Immature granulocytes/100 WB C Auto (Bld)Ordered By: Kayley Melendrez on 02-12-2025 Immature granulocytes/100 WBC (Bld) 0.500 % 0.0-0.9 [facility] Comment on above: IG% - Immature Granu locytes (promyelocytes, myelocytes and metamyelocytes) > 1% indicates that a LEFT SHIFT is Present. International normalized rat io (INR) calculationOrdered By: Kayley Melendrez on 02-12-2025 INR Coag (Bld) [Relative time] 1.5 {INR} [facility] - Chemistry and C hemistry - challengeOrdered By: Kayley Melendrez on 05-19-2025 AST [Catalytic activity/Vol] 34 U/L <38 [facility] MCV (mean corpuscular volume ) determinationOrdered By: Kayley Melendrez on 02-12-2025 MCV (RBC) [Entitic vol] 90.1 fL 80-94 [facility] Mean corpuscular hemoglobin (MCH) determinationOrdered By: Kayley Melendrez on 02-12-2025 MCH (RBC) [Entitic mass] 29.3 pg 27.0-32.0 [facility] Mean corpuscular hemoglobin concentration (MCHC) determinationOrdered By: Kayley Melendrez on 02-12-2025 MCHC (RBC) [Mass/Vol] 32.5 g/dL 32-36 [facility] [place] [facility] Mean platelet volume determi nationOrdered By: Kayley Melendrez on 02-12-2025 Platelet mean volume (Bld) [Entitic vol] 9.2 fL 6.2-12.0 [facility] Monocyte percentageOrdered B y: Kayley Melendrez on 02-12-2025 Monocytes/100 WBC (Bld) 11.9 % High 0-10 [facility] Neutrophil percentageOrdered By: Kayley Melendrez on 02-12-2025 Neutrophils/100 WBC (Bld) 64.1 % 47-70 [facility] Nucleated red blood cell per centageOrdered By: Kayley Melendrez on 02-12-2025 Nucleated RBC/100 WBC (Bld) [Ratio] 0 % 0-5 [facility] Platelet countOrdered By: Leisa Melendrez on 02-12-2025 Platelets (Bld) [#/Vol] 294 10*3/uL 150-450 [facility] Potassium measurement (mass/ volume)Ordered By: Kayley Melendrez on 02-12-2025 Potassium (Unsp spec) [Mass/Vol] 3.2 mmol/L Low 3.3-5.1 [facility] Prothrombin Time w/INRon INR Coag (PPP) [Relative time] 1.5 {INR} Normal [facility] Comment on above: Performed By: #### L 9200.0000 #### [facility] [address] [place], [address] PT Coag (PPP) [Time] 17.9 s High 11.7-14.9 [facility] Comment on above: Performed By: #### L 9200.0000 #### [facility] [address] [place], [address] Prothrombin timeOrdered By: Kayley Melendrez on 02-12-2025 PT Coag (PPP) [Time] 17.9 s High 11.7-14.9 [facility] RBC Auto (Bld) [#/Vol]Ordere d By: Kayley Melendrez on 02-12-2025 RBC (Bld) [#/Vol] 2.73 10*6/uL Low 4.6-6.2 [facility] Serum creatinine measurement (mass/volume)Ordered By: Kayley Melendrez on 02-12-2025 Creatinine [Mass/Vol] 4.17 mg/dL High 0.70-1.20 [facility] [place] [facility] Serum globulin measurementOr dered By: Kayley Melendrez on 02-12-2025 Globulin (S) [Mass/Vol] 4.2 g/dL 2.2-4.2 [facility] Serum glucose measurement (m ass/volume)Ordered By: Kayley Melendrez on 02-12-2025 Glucose [Mass/Vol] 77 mg/dL 70-99 [facility] Serum or plasma alanine mayorga otransferase (ALT) measurementOrdered By: Kayley Melendrez on 02-12-2025 ALT [Catalytic activity/Vol] 9 U/L <47 [facility] Serum or plasma albumin audrey urement (mass/volume)Ordered By: Kayley Melendrez on 02-12-2025 Albumin [Mass/Vol] 2.9 g/dL Low 3.5-5.0 [facility] Serum or plasma albumin/glob ulin mass ratioOrdered By: Kayley Melendrez on 02-12-2025 Albumin/Globulin [Mass ratio] 0.7 {ratio} Low 0.9-2.4 [facility] Serum or plasma alkaline jacob sphatase measurementOrdered By: Kayley Melendrez on 02-12-2025 ALP [Catalytic activity/Vol] 177 U/L High 40-129 [facility] Serum or plasma calcium audrey urement (mass/volume)Ordered By: Kayley Melendrez on 02-12-2025 Calcium [Mass/Vol] 9.9 mg/dL 7.6-11.0 [facility] Serum or plasma urea nitroge n measurement (mass/volume)Ordered By: Kayley Melendrez on 02-12-2025 Urea nitrogen [Mass/Vol] 43 mg/dL High 4-19 [facility] Sodium levelOrdered By: Omega Melendrez on 02-12-2025 Sodium [Moles/Vol] 131 mmol/L Low 133-145 [facility] Total proteinOrdered By: Lexis Melendrez on 02-12-2025 Protein [Mass/Vol] 7.1 g/dL 5.9-8.4 [facility] White blood cell (WBC) count Ordered By: Kayley Melendrez on 02-12-2025 WBC (Bld) [#/Vol] 7.3 10*3/uL 4.4-11.0 [facility] 36on 02-09-2025 36 Normal [facility] International normalized rat io (INR) measurement by fingerstickOrdered By: Kayley Melendrez on 02-08-2025 INR Coag (BldC) [Relative time] 2.3 [facility] Comment on above: Critical Value > 4.0 Protime w/INR Fingerstickon 02-08-2025 INR Coag (PPP) [Relative time] 2.3 {INR} Normal [facility] Comment on above: Result Comment: Crit ical Value > 4.0 Performed By: #### L 9200.0000 #### [facility] [address] [place], [address] Protime Coagsen 24.9 SEC High 11.7-14.9 [facility] Comment on above: Performed By: #### L 9200.0000 #### [facility] [address] [place], [address] Whole blood prothrombin time Ordered By: Kayley Melendrez on 02-08-2025 PT Coag (Bld) [Time] 24.9 s High 11.7-14.9 [facility] International normalized rat io (INR) calculationOrdered By: Jayesh Stubbs on 02-07-2025 INR Coag (Bld) [Relative time] 1.8 {INR} [facility] Prothrombin Time w/INRon INR Coag (PPP) [Relative time] 1.8 {INR} Normal [facility] Comment on above: Order Comment: 413-2 Performed By: #### L 300.3900 #### [facility] [address] [place], [place], [id number] PT Coag (PPP) [Time] 21.1 s High 11.7-14.9 [facility] Comment on above: Order Comment: 413-2 Performed By: #### L 300.3900 #### [facility] [address] [place], [place], [id number] Prothrombin timeOrdered By: Jayesh Stubbs on 02-07-2025 PT Coag (PPP) [Time] 21.1 s High 11.7-14.9 [facility] Absolute lymphocyte countOrd ered By: Kayley Melendrez on 02-05-2025 Lymphocytes Auto (Unsp spec) [#/Vol] 1.77 10*3/uL 0.83-4.51 [facility] Absolute neutrophil countOrd ered By: Kayley Melendrez on 02-05-2025 Neutrophils (Bld) [#/Vol] 4.6 10*3/uL 2.0-7.7 [facility] Anion gap in Serum or Plasma Ordered By: Kayley Melendrez on 02-05-2025 Anion gap [Moles/Vol] 18 mmol/L High 5-15 [facility] [place] [facility] Automated lymphocyte count a s percentage of total leukocytesOrdered By: [facility] Melend[facility] on 02-05-2025 Lymphocytes/100 WBC Auto (Unsp spec) 22.0 % 19- [facility] BUN/creatinine ratioOrdered By: [facility] Rejistephen on 02-05-2025 Urea nitrogen/Creatinine [Mass ratio] 4.1 mg/mg Low 10-20 [facility] Basophil percentageOrdered B y: Kayley Melendrez on 02-05-2025 Basophils/100 WBC (Bld) 1.0 % 0-1 [facility] Bilirubin, totalOrdered By: [facility] Melendrez on 02-05-2025 Bilirubin [Mass/Vol] 0.81 mg/dL 0.00-1.30 [facility] CBC W/Diff, Automatedon 01-25 Absolute Lymph 1.77 X10 3/uL Normal 0.83-4.51 [facility] Comment on above: Order Comment: 413-2 Performed By: #### L 9200.0000 #### [facility] [address] [place], [address] Absolute Neut 4.6 X10 3/uL Normal 2.0-7.7 [facility] Comment on above: Order Comment: 413-2 Performed By: #### L 9200.0000 #### [facility] [address] [place], [address] Basophils/100 WBC (Bld) 1.0 % Normal 0-1 [facility] Comment on above: Order Comment: 413-2 Performed By: #### L 9200.0000 #### [facility] [address] [place], [address] Eosinophils/100 WBC (Bld) 4.1 % Normal 0-5 [facility] Comment on above: Order Comment: 413-2 Performed By: #### L 9200.0000 #### [facility] [address] [place], [address] Erythrocyte distribution width (RBC) [Ratio] 18.8 % High 11.6-14.6 [facility] Comment on above: Order Comment: 413-2 Performed By: #### L 9200.0000 #### [facility] [address] [place], [address] Hematocrit (Bld) [Volume fraction] 28.1 % Low 40-54 [facility] Comment on above: Order Comment: 413-2 Performed By: #### L 9200.0000 #### [facility] [address] [place], [address] Hemoglobin (Bld) [Mass/Vol] 8.8 g/dL Low 13.0-16.5 [facility] Comment on above: Order Comment: 413-2 Performed By: #### L 9200.0000 #### [facility] [address] [place], [address] IG% 0.600 Normal 0.0-0.9 [facility] Comment on above: Order Comment: 413-2 Result Comment: IG% - Immature Granulocytes (promyelocytes, myelocytes and metamyelocytes) > 1% indicates that a LEFT SHIFT is Present. Performed By: #### L 9200.0000 #### [facility] [address] [place], [address] Lymphocytes/100 WBC (Bld) 22.0 % Normal 19-41 [facility] Comment on above: Order Comment: 413-2 Performed By: #### L 9200.0000 #### [facility] [address] [place], [address] MCH (RBC) [Entitic mass] 29.0 pg Normal 27.0-32.0 [facility] Comment on above: Order Comment: 413-2 Performed By: #### L 9200.0000 #### [facility] [address] [place], [address] MCHC (RBC) [Mass/Vol] 31.3 g/dL Low 32-36 [facility] [place] [facility] Comment on above: Order Comment: 413-2 Performed By: #### L 9200.0000 #### [facility] [address] [place], [address] MCV (RBC) [Entitic vol] 92.7 fL Normal 80-94 [facility] Comment on above: Order Comment: 413-2 Performed By: #### L 9200.0000 #### [facility] [address] [place], [address] Monocytes/100 WBC (Bld) 15.6 % High 0-10 [facility] Comment on above: Order Comment: 413-2 Performed By: #### L 9200.0000 #### [facility] [address] [place], [address] Neutrophils/100 WBC (Bld) 56.7 % Normal 47-70 [facility] Comment on above: Order Comment: 413-2 Performed By: #### L 9200.0000 #### [facility] [address] [place], [address] Nucleated RBC (Bld) [#/Vol] 0 10*3/uL Normal 0-5 [facility] Comment on above: Order Comment: 413-2 Performed By: #### L 9200.0000 #### [facility] [address] [place], [address] Platelet mean volume (Bld) [Entitic vol] 9.2 fL Normal 6.2-12.0 [facility] Comment on above: Order Comment: 413-2 Performed By: #### L 9200.0000 #### [facility] [address] [place], [address] Platelets (Bld) [#/Vol] 358 10*3/uL Normal 150-450 [facility] Comment on above: Order Comment: 413-2 Performed By: #### L 9200.0000 #### [facility] [address] [place], [address] RBC (Bld) [#/Vol] 3.03 10*6/uL Low 4.6-6.2 [facility] Comment on above: Order Comment: 413-2 Performed By: #### L 9200.0000 #### [facility] [address] [place], [address] RDW SD 63.1 fl High 35.1-43.9 [facility] Comment on above: Order Comment: 413-2 Performed By: #### L 9200.0000 #### [facility] [address] [place], [address] WBC (Bld) [#/Vol] 8.1 10*3/uL Normal 4.4-11.0 [facility] Comment on above: Order Comment: 413-2 Performed By: #### L 9200.0000 #### [facility] [address] [place], [address] Carbon dioxide, total [Moles /volume] in Central venous bloodOrdered By: Kayley Melendrez on 02-05-2025 CO2 [Moles/Vol] 25.9 mmol/L 21.0-32.0 [facility] Chloride assayOrdered By: Leisa Melendrez on 02-05-2025 Chloride [Moles/Vol] 93 mmol/L Low 98-108 [facility] Comprehensive Metabolic Prof ilon 02-05-2025 Albumin [Mass/Vol] 3.1 g/dL Low 3.5-5.0 [facility] Comment on above: Order Comment: 413-2 Performed By: #### L 9200.0000 #### [facility] [address] [place], [address] Albumin/Globulin [Mass ratio] 0.7 {ratio} Low 0.9-2.4 [facility] Comment on above: Order Comment: 413-2 Performed By: #### L 9200.0000 #### [facility] [address] [place], [address] ALK PHOS 260 U/L High 40-129 [facility] Comment on above: Order Comment: 413-2 Performed By: #### L 9200.0000 #### [facility] [address] [place], [address] ALT [Catalytic activity/Vol] 11 U/L Normal <=46 [facility] Comment on above: Order Comment: 413-2 Performed By: #### L 9200.0000 #### [facility] [address] [place], [address] AST [Catalytic activity/Vol] 42 U/L High <=37 [facility] Comment on above: Order Comment: 413-2 Performed By: #### L 9200.0000 #### [facility] [address] [place], [address] Bilirubin [Mass/Vol] 0.81 mg/dL Normal 0.00-1.30 [facility] Comment on above: Order Comment: 413-2 Performed By: #### L 9200.0000 #### [facility] [address] [place], [address] BUN/CRE 4.1 RATIO Low 10-20 [facility] Comment on above: Order Comment: 413-2 Performed By: #### L 9200.0000 #### [facility] [address] [place], [address] Calcium [Mass/Vol] 10.0 mg/dL Normal 7.6-11.0 [facility] Comment on above: Order Comment: 413-2 Performed By: #### L 9200.0000 #### [facility] [address] [place], [address] Chloride [Moles/Vol] 93 mmol/L Low 98-108 [facility] Comment on above: Order Comment: 413-2 Performed By: #### L 9200.0000 #### [facility] [address] [place], [address] CO2 [Moles/Vol] 25.9 mmol/L Normal 21.0-32.0 [facility] Comment on above: Order Comment: 413-2 Performed By: #### L 9200.0000 #### [facility] [address] [place], [address] Creatinine [Mass/Vol] 5.27 mg/dL High 0.70-1.20 [facility] [place] [facility] Comment on above: Order Comment: 413-2 Performed By: #### L 9200.0000 #### [facility] [address] [place], [address] GAP 18 High 5-15 [facility] Comment on above: Order Comment: 413-2 Performed By: #### L 9200.0000 #### [facility] [address] [place], [address] GFR/1.73 sq M.predicted among non-blacks MDRD (S/P/Bld) [Vol rate/Area] 12 mL/min/{1.73_m2} Low >60 [facility] Comment on above: Order Comment: 413-2 Result Comment: mL/m in/1.73m2 CKD-EPI Creatinine Equation (2020) Performed By: #### L 9200.0000 #### [facility] [address] [place], [address] Globulin (S) [Mass/Vol] 4.3 g/dL High 2.2-4.2 [facility] Comment on above: Order Comment: 413-2 Performed By: #### L 9200.0000 #### [facility] [address] [place], [address] Glucose [Mass/Vol] 65 mg/dL Low 70-99 [facility] Comment on above: Order Comment: 413-2 Performed By: #### L 9200.0000 #### [facility] [address] [place], [address] Potassium [Moles/Vol] 4.5 mmol/L Normal 3.3-5.1 [facility] [place] [facility] Comment on above: Order Comment: 413-2 Performed By: #### L 9200.0000 #### [facility] [address] [place], [address] Sodium [Moles/Vol] 136 mmol/L Normal 133-145 [facility] Comment on above: Order Comment: 413-2 Performed By: #### L 9200.0000 #### [facility] [address] [place], [address] T PROT 7.4 g/dL Normal 5.9-8.4 [facility] Comment on above: Order Comment: 413-2 Performed By: #### L 9200.0000 #### [facility] [address] [place], [address] Urea nitrogen [Mass/Vol] 22 mg/dL High 4-19 [facility] Comment on above: Order Comment: 413-2 Performed By: #### L 9200.0000 #### [facility] [address] [place], [address] Eosinophil percentageOrdered By: Kayley Melendrez on 02-05-2025 Eosinophils/100 WBC (Bld) 4.1 % 0-5 [facility] Erythrocyte distribution wid th ratioOrdered By: Kayley Melendrez on 02-05-2025 Erythrocyte distribution width (RBC) [Ratio] 18.8 % High 11.6-14.6 [facility] Erythrocyte distribution wid th standard deviationOrdered By: Kayley Melendrez on 02-05-2025 Erythrocyte distribution width (RBC) [Ratio] 63.1 fl High 35.1-43.9 [facility] Glomerular filtration rate ( GFR) estimation/1.73 sq m using serum, plasma, or whole bOrdered By: Kayley Melendrez on 05-12-2025 GFR/1.73 sq M.predicted among non-blacks MDRD (S/P/Bld) [Vol rate/Area] 12 mL/min/{1.73_m2} Low >60 [facility] Comment on above: mL/min/1.73m2 CKD-EP I Creatinine Equation (2020) Hematocrit Auto (Bld) [Volum e fraction]Ordered By: Kayley Melendrez on 02-05-2025 Hematocrit (Bld) [Volume fraction] 28.1 % Low 40-54 [facility] Hemoglobin measurementOrdere d By: Kayley Melendrez on 02-05-2025 Hemoglobin (Bld) [Mass/Vol] 8.8 g/dL Low 13.0-16.5 [facility] Immature granulocytes/100 WB C Auto (Bld)Ordered By: Kayley Melendrez on 02-05-2025 Immature granulocytes/100 WBC (Bld) 0.600 % 0.0-0.9 [facility] Comment on above: IG% - Immature Granu locytes (promyelocytes, myelocytes and metamyelocytes) > 1% indicates that a LEFT SHIFT is Present. Laboratory - Chemistry and C hemistry - challengeOrdered By: Kayley Melendrez on 02-05-2025 AST [Catalytic activity/Vol] 42 U/L High <38 [facility] MCV (mean corpuscular volume ) determinationOrdered By: Kayley Melendrez on 02-05-2025 MCV (RBC) [Entitic vol] 92.7 fL 80-94 [facility] Mean corpuscular hemoglobin (MCH) determinationOrdered By: Kayley Melendrez on 02-05-2025 MCH (RBC) [Entitic mass] 29.0 pg 27.0-32.0 [facility] Mean corpuscular hemoglobin concentration (MCHC) determinationOrdered By: Kayley Melendrez on 02-05-2025 MCHC (RBC) [Mass/Vol] 31.3 g/dL Low 32-36 [facility] [place] [facility] Mean platelet volume determi nationOrdered By: Kayley Melendrez on 02-05-2025 Platelet mean volume (Bld) [Entitic vol] 9.2 fL 6.2-12.0 [facility] Monocyte percentageOrdered B y: Kayley Melendrez on 02-05-2025 Monocytes/100 WBC (Bld) 15.6 % High 0-10 [facility] Neutrophil percentageOrdered By: Kayley Melendrez on 02-05-2025 Neutrophils/100 WBC (Bld) 56.7 % 47-70 [facility] Nucleated red blood cell per centageOrdered By: Kayley Melendrez on 02-05-2025 Nucleated RBC/100 WBC (Bld) [Ratio] 0 % 0-5 [facility] Platelet countOrdered By: Leisa Melendrez on 02-05-2025 Platelets (Bld) [#/Vol] 358 10*3/uL 150-450 [facility] Potassium measurement (mass/ volume)Ordered By: Kayley Melendrez on 02-05-2025 Potassium (Unsp spec) [Mass/Vol] 4.5 mmol/L 3.3-5.1 [facility] RBC Auto (Bld) [#/Vol]Ordere d By: Kayley Melendrez on 02-05-2025 RBC (Bld) [#/Vol] 3.03 10*6/uL Low 4.6-6.2 [facility] Serum creatinine measurement (mass/volume)Ordered By: Kayley Melendrez on 02-05-2025 Creatinine [Mass/Vol] 5.27 mg/dL High 0.70-1.20 [facility] [place] [facility] Serum globulin measurementOr dered By: Kayley Melendrez on 02-05-2025 Globulin (S) [Mass/Vol] 4.3 g/dL High 2.2-4.2 [facility] Serum glucose measurement (m ass/volume)Ordered By: Kayley Melendrez on 02-05-2025 Glucose [Mass/Vol] 65 mg/dL Low 70-99 [facility] Serum or plasma alanine mayorga otransferase (ALT) measurementOrdered By: Kayley Melendrez on 02-05-2025 ALT [Catalytic activity/Vol] 11 U/L <47 [facility] Serum or plasma albumin audrey urement (mass/volume)Ordered By: Kayley Melendrez on 02-05-2025 Albumin [Mass/Vol] 3.1 g/dL Low 3.5-5.0 [facility] Serum or plasma albumin/glob ulin mass ratioOrdered By: Kayley Melendrez on 02-05-2025 Albumin/Globulin [Mass ratio] 0.7 {ratio} Low 0.9-2.4 [facility] Serum or plasma alkaline jacob sphatase measurementOrdered By: Kayley Melendrez on 02-05-2025 ALP [Catalytic activity/Vol] 260 U/L High 40-129 [facility] Serum or plasma calcium audrey urement (mass/volume)Ordered By: Kayley Melendrez on 02-05-2025 Calcium [Mass/Vol] 10.0 mg/dL 7.6-11.0 [facility] Serum or plasma urea nitroge n measurement (mass/volume)Ordered By: Kayley Melendrez on 02-05-2025 Urea nitrogen [Mass/Vol] 22 mg/dL High 4-19 [facility] [facility] Sodium levelOrdered By: Omega Melendrez on 02-05-2025 Sodium [Moles/Vol] 136 mmol/L 133-145 [facility] Total proteinOrdered By: Lexis Melendrez on 02-05-2025 Protein [Mass/Vol] 7.4 g/dL 5.9-8.4 [facility] White blood cell (WBC) count Ordered By: Kayley Melendrez on 02-05-2025 WBC (Bld) [#/Vol] 8.1 10*3/uL 4.4-11.0 [facility] 36on 02-02-2025 36 Normal [facility] [address] [facility] [phone], spoke to nurse Mazariegos to verify orders, follow up appointment and tunneled line removal. Normal [facility] Progress Noteon 02-02-2025 Progress Note Normal [facility] Progress Note Pt discharged to [facility] on 02/01/25. Updated tracker with hospital doses. Warfarin dosing instructions: 0.5 mg per day. New interacting meds: N/a Next SAILAJA appt: post SNF Normal [facility] Progress Note Patient was readmitted on 02/20 [address] back [address] [facility] on 03/05. Normal [facility] Progress Note Patient is still at [facility] ([phone]). I left a message for ELIA Anderson, regarding discharge plans. Normal [facility] [id number] 02-01-2025 [id number] created in HENS per TCC request. Facility notified via [employer]. Normal [facility] [id number] Normal [facility] CBC (HEMOGRAM)on 02-01-2025 Erythrocyte distribution width (RBC) [Ratio] 18.8 % High 11.5-15.0 [facility] Comment on above: Performed By: #### L [id number] ####Blow Pit Operator: DOMENICA JARA ([id number])[address] Hematocrit (Bld) [Volume fraction] 28.3 % Low 40.0-52.0 [facility] Comment on above: Performed By: #### L AB294 ####Blow Pit Operator: DOMENICA JARA ([id number])[address] Hemoglobin (Bld) [Mass/Vol] 8.9 g/dL Low 13.0-18.0 [facility] Comment on above: Performed By: #### L AB294 ####Blow Pit Operator: DOMENICA JARA ([id number])[address] MCH (RBC) [Entitic mass] 28.2 pg Normal 26.0-34.0 [facility] Comment on above: Performed By: #### L AB294 ####Blow Pit Operator: DOMENICA [id number])[address] MCHC 31.4 % Normal 30.5-36.0 [facility] Comment on above: Performed By: #### L AB294 ####Blow Pit Operator: DOMENICA JARA ([id number])[facility] ([facility])[address] [place] [address] MCV (RBC) [Entitic vol] 89.6 fL Normal 77.0-99.0 [facility] Comment on above: Performed By: #### L AB294 ####Blow Pit Operator: DOMENICA JARA ([phone])[facility] ([facility])[address] [place] [address] Platelet mean volume (Bld) [Entitic vol] 9.0 fL Normal 9.0-12.7 [facility] Comment on above: Performed By: #### L AB294 ####Blow Pit Operator: DOMENICA JARA ([id number])[facility] ([facility])[address] [place] [address] Platelets (Bld) [#/Vol] 282 10*3/uL Normal 140-440 [facility] Comment on above: Performed By: #### L AB294 ####Blow Pit Operator: DOMENICA JARA ([phone])[facility])[address] [place] [address] RBC (Bld) [#/Vol] 3.16 10*6/uL Low 4.40-5.90 [facility] Comment on above: Performed By: #### L AB294 ####Blow Pit Operator: DOMENICA JARA ([phone])[facility] ([facility])[address] [place] [address] WBC (Bld) [#/Vol] 7.9 10*3/uL Normal 3.6-10.7 [facility] Comment on above: Performed By: #### L AB294 ####Blow Pit Operator: DOMENICA JARA ([phone])[facility])[address] [place] [address] CBC panel Auto (Bld)on 02-01 Erythrocyte distribution width (RBC) [Ratio] 18.8 % High 11.5 - 15.0 % [facility] Hematocrit (Bld) [Volume fraction] 28.3 % Low 40.0 - 52.0 % [facility] Hemoglobin (Bld) [Mass/Vol] 8.9 g/dL Low 13.0 - 18.0 g/dL [facility] Interpretation and review of laboratory results Abnormal [facility] MCH (RBC) [Entitic mass] 28.2 pg 26. 0 - 34.0 pg [facility] MCHC (RBC) [Mass/Vol] 31.4 % 30.5 - 36.0 % [facility] MCV (RBC) [Entitic vol] 89.6 fL 77.0 - 99.0 fL [facility] Platelet mean volume (Bld) [Entitic vol] 9 fL 9.0 - 12.7 fL [facility] Platelets (Bld) [#/Vol] 282 10*3/uL 140 - 440 10*3/uL [facility] RBC (Bld) [#/Vol] 3.16 10*6/uL Low 4.40 - 5.9 0 10*6/uL [facility] WBC (Bld) [#/Vol] 7.9 10*3/uL 3.6 - 10.7 10*3/uL [facility] COMPREHENSIVE METABOLIC PANE Victor M 02-01-2025 Albumin [Mass/Vol] 2.1 g/dL Low 3.5-5.0 [facility] Comment on above: Performed By: #### L AB113, LAB17, [id number] ####Blow Pit Operator: DOMENICA JARA ([id number])[address] ALP [Catalytic activity/Vol] 226 U/L High 40-150 [facility] Comment on above: Performed By: #### L ABAruna, LAB17, [id number] ####Blow Pit Operator: DOMENICA JARA ([phone])[address] ALT [Catalytic activity/Vol] 10 U/L Normal <40 [facility] Comment on above: Performed By: #### L AB113, LAB17, [id number] ####Blow Pit Operator: DOMENICA JARA ([phone])[facility] ([facility])[address] [place] [address] Anion gap [Moles/Vol] 11 mmol/L Normal 3-13 [facility] Comment on above: Performed By: #### L AB113, LAB17, [id number] ####Blow Pit Operator: DOMENICA JARA ([phone])[facility] ([facility] [place] [address] AST [Catalytic activity/Vol] 32 U/L Normal <34 [facility] Comment on above: Performed By: #### L AB113, LAB17, [id number] ####Blow Pit Operator: DOMENICA JARA ([id number])[facility] ([facility])[address] [place] [address] Bilirubin [Mass/Vol] 0.9 mg/dL Normal <1.2 [facility] Comment on above: Performed By: #### Tameka ABAruna, LAB17, [id number] ####Blow Pit Operator: DOMENICA JARA ([phone])[facility])[address] [place] [address] Calcium [Mass/Vol] 9.7 mg/dL Normal 8.4-10.2 [facility] Comment on above: Performed By: #### L AB113, LAB17, [id number] ####Blow Pit Operator: DOMENICA JARA ([phone])[facility] ([facility])[address] [place] [address] [place] Chloride [Moles/Vol] 99 mmol/L Normal 98-107 [facility] Comment on above: Performed By: #### L AB113, LAB17, [id number] ####Blow Pit Operator: DOMENICA JARA ([id number])[facility] ([facility])[address] [place] [address] [place] CO2 [Moles/Vol] 26 mmol/L Normal 22-29 [facility] Comment on above: Performed By: #### L AB113, LAB17, [id number] ####Blow Pit Operator: DOMENICA JARA ([phone])[facility] ([facility])[address] [place] [address] Creatinine [Mass/Vol] 2.39 mg/dL High 0.72-1.25 [facility] Comment on above: Performed By: #### Tameka ABAruna, LAB17, [id number] ####Blow Pit Operator: DOMENICA JARA ([phone])[facility])[address] [place] [address] [place] GLOMERULAR FILTRATION RATE ML/MIN/1.73 SQ M.PREDICTED 30.5 mL/min/1.73m*2 Low >60.0 [facility] Comment on above: Result Comment: Calc ulation based on the Chronic Kidney Disease Epidemiology Collaboration (CKD-EPI) equation refit without adjustment for race Performed By: #### Tameka GIMENEZ, LAB17, [id number] ####Blow Pit Operator: DOMENICA JARA ([phone])[facility])[address] [place] [address] Glucose [Mass/Vol] 87 mg/dL Normal 74-100 [facility] Comment on above: Performed By: #### Tameka GIMENEZ, LAB17, [id number] ####Blow Pit Operator: DOMENICA JARA ([id number])[facility])[address] [place] [address] Potassium [Moles/Vol] 3.7 mmol/L Normal 3.5-5.1 [facility] Comment on above: Result Comment: [facility] potassium values may be up to 0.5 mmol/L lower than serum values. Performed By: #### Tameka GIMENEZ, LAB17, [id number] ####Blow Pit Operator: DOMENICA JARA ([id number])[facility] ([facility])[address] [place] [address] [place] Protein [Mass/Vol] 7.4 g/dL Normal 6.4-8.3 [facility] Comment on above: Performed By: #### Tameka AB113, LAB17, [id number] ####Blow Pit Operator: DOMENICA JARA ([id number])[facility])[address] [place] [address] [place] Sodium [Moles/Vol] 136 mmol/L Normal 136-145 [facility] Comment on above: Performed By: #### L AB113, LAB17, [id number] ####Blow Pit Operator: DOMENICA JARA ([id number])[facility] ([facility])[address] [place] [address] Urea nitrogen [Mass/Vol] 7 mg/dL Low 9-23 [facility] Comment on above: Performed By: #### L AB113, LAB17, [id number] ####Blow Pit Operator: DOMENICA JARA ([phone])[facility] ([facility])[address] [place] [address] Comprehensive metabolic 1998 panelon 02-01-2025 Albumin [Mass/Vol] 2.1 g/dL Low 3.5 - 5.0 g/dL [facility] ALP [Catalytic activity/Vol] 226 U/L High 40 - 150 U/L [facility] ALT [Catalytic activity/Vol] 10 U/L NINF - 40 U/L [facility] Anion gap [Moles/Vol] 11 mmol/L 3 - 13 mmol/L [facility] AST [Catalytic activity/Vol] 32 U/L NINF - 34 U/L [facility] Bilirubin [Mass/Vol] 0.9 mg/dL NINF - 1.2 mg/dL [facility] Calcium [Mass/Vol] 9.7 mg/dL 8.4 - 10. 2 mg/dL [facility] Chloride [Moles/Vol] 99 mmol/L 98 - 10 7 mmol/L [facility] CO2 [Moles/Vol] 26 mmol/L 22 - 29 mmol/L [facility] Creatinine [Mass/Vol] 2.39 mg/dL High 0.72 - 1.25 mg/dL [facility] GFR/1.73 sq M.predicted (S/P/Bld) [Vol rate/Area] 30.5 mL/min Low - PINF [facility] Glucose [Mass/Vol] 87 mg/dL 74 - 100 mg/dL [facility] Interpretation and review of laboratory results Abnormal [facility] Potassium [Moles/Vol] 3.7 mmol/L 3.5 - 5.1 mmol/L [facility] Protein [Mass/Vol] 7.4 g/dL 6.4 - 8.3 g/dL [facility] Sodium [Moles/Vol] 136 mmol/L 136 - 145 mmol/L [facility] Urea nitrogen [Mass/Vol] 7 mg/dL Low 9 - 23 mg/d L [facility] HEMOGLOBIN AND HEMATOCRIT, B LOODon 02-01-2025 Hematocrit (Bld) [Volume fraction] 28.8 % Low 40.0-52.0 [facility] Comment on above: Performed By: #### L AB753 ####Blow Pit Operator: DOMENICA JARA ([phone])[address] Hemoglobin (Bld) [Mass/Vol] 8.9 g/dL Low 13.0-18.0 [facility] Comment on above: Performed By: #### L AB753 ####Blow Pit Operator: DOMENICA JARA ([id number])[address] Hemoglobin (Bld) [Mass/Vol]O rdered By: Rosa Juares on 02-01-2025 Hematocrit (Bld) [Volume fraction] 28.8 % Low 40.0 - 52.0 % [facility] Interpretation and review of laboratory results Abnormal [facility] Laboratory - Chemistry and C hemistry - challengeon 02-01-2025 Magnesium [Mass/Vol] 1.9 mg/dL 1.6 - 2 .6 mg/dL [facility] Laboratory - Coagulationon 0 02-01-2025 PT Coag (Bld) [Time] 20.3 s High 9.0 - 12.0 s [facility] Laboratory - Hematology and Cell countsOrdered By: Rosa Juares on 02-01-2025 Hemoglobin (Bld) [Mass/Vol] 8.9 g/dL Low 13.0 - 18.0 g/dL [facility] MAGNESIUMon 02-01-2025 Magnesium [Mass/Vol] 1.9 mg/dL Normal 1.6-2.6 [facility] Comment on above: Result Comment: ARPAN Kaplan COMMENTS:Higher values can be expected in females during menses. Performed By: #### L AB113, LAB17, [id number] ####Blow Pit Operator: DOMENICA JARA ([phone])[facility] ([facility])[address] [place] [address] Magnesium [Mass/Vol]on 02-01 [facility] No Panel Informationon 02-01 Interpretation and review of laboratory results Normal [facility] Nursing Noteon 02-01-2025 Nursing Note Transport here to take patient to [facility]. Wound Vac tubing clamped and disconnected from wound vac. Facility will determine if tubing is compatible with their wound vacs. Normal [facility] PHOSPHORUSon 02-01-2025 Phosphate [Mass/Vol] 3.4 mg/dL Normal 2.3-4.7 [facility] Comment on above: Performed By: #### L AB113, LAB17, CIS092 ####Blow Pit Operator: DOMENICA JARA ([phone])[facility])[address] [place] [address] [place] PROTHROMBIN TIMEon INR Coag (PPP) [Relative time] 2.0 {INR} High 0.9-1.1 [facility] Comment on above: Result Comment: Vaughn [...] Myocardial Infarction Performed By: #### L AB320 ####Blow Pit Operator: DOMENICA JARA ([phone])[facility] ([facility])[address] [place] [address] PT Coag (PPP) [Time] 20.3 s High 9.0-12.0 [facility] Comment on above: Performed By: #### L AB320 ####Blow Pit Operator: DOMENICA JARA ([phone])[facility])[address] [place] [address] PT Coag (Bld) [Time]on 02-01 INR Coag (PPP) [Relative time] 2 {INR} High 0.9 - 1.1 [facility] Interpretation and review of laboratory results Abnormal [facility] Phosphate [Moles/Vol]on Phosphate [Mass/Vol] 3.4 mg/dL 2.3 - 4 .7 mg/dL [facility] Progress Noteon 02-01-2025 Progress [facility] Progress [facility] Progress [facility] 30on 01-31-2025 30 Normal [facility] 30 Normal [facility] [id number] 01-31-2025 [id number] Updates placed to [facility] via [employer] per TCC request. Await review and response regarding ability to accept. TCC notified. Electronically signed by NELSON Rodrigues Normal [facility] CBC (HEMOGRAM)on 01-31-2025 Erythrocyte distribution width (RBC) [Ratio] 19.2 % High 11.5-15.0 [facility] Comment on above: Performed By: #### L AB294 ####Blow Pit Operator: DOMENICA JARA ([id number])[address] Hematocrit (Bld) [Volume fraction] 27.9 % Low 40.0-52.0 [facility] Comment on above: Performed By: #### L AB294 ####Blow Pit Operator: DOMENICA JARA ([id number])[address] Hemoglobin (Bld) [Mass/Vol] 8.8 g/dL Low 13.0-18.0 [facility] Comment on above: Performed By: #### L AB294 ####Blow Pit Operator: DOMENICA JARA ([phone])[address] MCH (RBC) [Entitic mass] 28.4 pg Normal 26.0-34.0 [facility] Comment on above: Performed By: #### L AB294 ####Blow Pit Operator: DOMENICA JARA ([phone])[facility])[address] [place] [address] MCHC 31.5 % Normal 30.5-36.0 [facility] Comment on above: Performed By: #### L AB294 ####Blow Pit Operator: DOMENICA JARA ([phone])[facility])[address] [place] [address] MCV (RBC) [Entitic vol] 90.0 fL Normal 77.0-99.0 [facility] Comment on above: Performed By: #### L AB294 ####Blow Pit Operator: DOMENICA JARA ([phone])[facility])[address] [place] [address] Platelet mean volume (Bld) [Entitic vol] 9.0 fL Normal 9.0-12.7 [facility] Comment on above: Performed By: #### L AB294 ####Blow Pit Operator: DOMENICA JARA ([phone])[facility] ([facility])[address] [place] [address] Platelets (Bld) [#/Vol] 278 10*3/uL Normal 140-440 [facility] Comment on above: Performed By: #### L AB294 ####Blow Pit Operator: DOMENICA JARA ([id number])[facility])[address] [place] [address] RBC (Bld) [#/Vol] 3.10 10*6/uL Low 4.40-5.90 [facility] Comment on above: Performed By: #### L AB294 ####Blow Pit Operator: DOMENICA JARA ([phone])[facility])[address] [place] [address] WBC (Bld) [#/Vol] 9.3 10*3/uL Normal 3.6-10.7 [facility] Comment on above: Performed By: #### L AB294 ####Blow Pit Operator: DOMENICA [id number])[facility] ([facility])[address] [place] [address] CBC panel Auto (Bld)on 01-31 Erythrocyte distribution width (RBC) [Ratio] 19.2 % High 11.5 - 15.0 % [facility] Hematocrit (Bld) [Volume fraction] 27.9 % Low 40.0 - 52.0 % [facility] Hemoglobin (Bld) [Mass/Vol] 8.8 g/dL Low 13.0 - 18.0 g/dL [facility] Interpretation and review of laboratory results Abnormal [facility] MCH (RBC) [Entitic mass] 28.4 pg 26. 0 - 34.0 pg [facility] MCHC (RBC) [Mass/Vol] 31.5 % 30.5 - 36.0 % [facility] MCV (RBC) [Entitic vol] 90 fL 77.0 - 99.0 fL [facility] Platelet mean volume (Bld) [Entitic vol] 9 fL 9.0 - 12.7 fL [facility] Platelets (Bld) [#/Vol] 278 10*3/uL 140 - 440 10*3/uL [facility] RBC (Bld) [#/Vol] 3.1 10*6/uL Low 4.40 - 5.9 0 10*6/uL [facility] WBC (Bld) [#/Vol] 9.3 10*3/uL 3.6 - 10.7 10*3/uL [facility] COMPREHENSIVE METABOLIC PANE Victor M 01-31-2025 Albumin [Mass/Vol] 2.1 g/dL Low 3.5-5.0 [facility] Comment on above: Performed By: #### L AB113, LAB17, [id number] ####Blow Pit Operator: DOMENICA JARA ([phone])[facility] ([facility])[address] [place] [address] ALP [Catalytic activity/Vol] 218 U/L High 40-150 [facility] Comment on above: Performed By: #### L AB113, LAB17, [id number] ####Blow Pit Operator: DOMENICA JARA ([phone])[facility] ([facility])[address] [place] [address] [place] ALT [Catalytic activity/Vol] 11 U/L Normal <40 [facility] Comment on above: Performed By: #### Tameka ABAruna, LAB17, [id number] ####Blow Pit Operator: DOMENICA JARA ([phone])[facility] ([facility])[address] [place] [address] Anion gap [Moles/Vol] 12 mmol/L Normal 3-13 [facility] Comment on above: Performed By: #### Tameka GIMENEZ, LAB17, [id number] ####Blow Pit Operator: DOMENICA JARA ([phone])[facility] ([facility])[address] [place] [address] [place] AST [Catalytic activity/Vol] 31 U/L Normal <34 [facility] Comment on above: Performed By: #### Tameka GIMENEZ, LAB17, [id number] ####Blow Pit Operator: DOMENICA JARA ([id number])[facility] ([facility])[address] [place] [address] Bilirubin [Mass/Vol] 0.8 mg/dL Normal <1.2 [facility] Comment on above: Performed By: #### Tameka GIMENEZ, LAB17, [id number] ####Blow Pit Operator: DOMENICA JARA ([phone])[facility] ([facility])[address] [place] [address] Calcium [Mass/Vol] 10.0 mg/dL Normal 8.4-10.2 [facility] Comment on above: Performed By: #### Tameka GIMENEZ, LAB17, [id number] ####Blow Pit Operator: DOMENICA JARA ([id number])[facility] ([facility])[address] [place] [address] [place] Chloride [Moles/Vol] 99 mmol/L Normal 98-107 [facility] Comment on above: Performed By: #### Tameka GIMENEZ, LAB17, [id number] ####Blow Pit Operator: DOMENICA JARA ([phone])[facility] ([facility])[address] [place] [address] [place] CO2 [Moles/Vol] 27 mmol/L Normal 22-29 [facility] Comment on above: Performed By: #### L AB113, LAB17, [id number] ####Blow Pit Operator: DOMENICA JARA ([phone])[facility])[address] [place] [address] Creatinine [Mass/Vol] 3.64 mg/dL High 0.72-1.25 [facility] Comment on above: Performed By: #### Tameka ABAruna, LAB17, [id number] ####Blow Pit Operator: DOMENICA JARA ([phone])[facility])[address] [place] [address] GLOMERULAR FILTRATION RATE ML/MIN/1.73 SQ M.PREDICTED 18.4 mL/min/1.73m*2 Low >60.0 [facility] Comment on above: Result Comment: Calc ulation based on the Chronic Kidney Disease Epidemiology Collaboration (CKD-EPI) equation refit without adjustment for race Performed By: #### Tameka GIMENEZ, LAB17, [id number] ####Blow Pit Operator: DOMENICA JARA ([phone])[facility])[address] [place] [address] Glucose [Mass/Vol] 87 mg/dL Normal 74-100 [facility] Comment on above: Performed By: #### Tameka GIEMNEZ, LAB17, [id number] ####Blow Pit Operator: DOMENICA JARA ([id number])[address] Potassium [Moles/Vol] 4.3 mmol/L Normal 3.5-5.1 [facility] Comment on above: Result Comment: [facility] potassium values may be up to 0.5 mmol/L lower than serum values. Performed By: #### L AB113, LAB17, [id number] ####Blow Pit Operator: DOMENICA JARA ([phone])[facility])[address] [place] [address] Protein [Mass/Vol] 7.3 g/dL Normal 6.4-8.3 [facility] Comment on above: Performed By: #### L AB113, LAB17, [id number] ####Blow Pit Operator: DOMENICA JARA ([phone])[facility] ([facility])[address] [place] [address] Sodium [Moles/Vol] 138 mmol/L Normal 136-145 [facility] Comment on above: Performed By: #### L AB113, LAB17, [id number] ####Blow Pit Operator: DOMENICA JARA ([phone])[facility] [place] [address] Urea nitrogen [Mass/Vol] 15 mg/dL Normal 9-23 [facility] Comment on above: Performed By: #### L AB113, LAB17, [id number] ####Blow Pit Operator: DOMENICA JARA ([phone])[facility] ([facility])[address] [place] [address] Comprehensive metabolic 1998 panelon 01-31-2025 Albumin [Mass/Vol] 2.1 g/dL Low 3.5 - 5.0 g/dL [facility] ALP [Catalytic activity/Vol] 218 U/L High 40 - 150 U/L [facility] ALT [Catalytic activity/Vol] 11 U/L NINF - 40 U/L [facility] Anion gap [Moles/Vol] 12 mmol/L 3 - 13 mmol/L [facility] AST [Catalytic activity/Vol] 31 U/[facility] Bilirubin [Mass/Vol] 0.8 mg/dL NINF - 1.2 mg/dL [facility] Calcium [Mass/Vol] 10 mg/dL 8.4 - 10. 2 mg/dL [facility] [facility] Chloride [Moles/Vol] 99 mmol/L 98 - 10 7 mmol/L [facility] CO2 [Moles/Vol] 27 mmol/L 22 - 29 mmol/L [facility] Creatinine [Mass/Vol] 3.64 mg/dL High 0.72 - 1.25 mg/dL [facility] GFR/1.73 sq M.predicted (S/P/Bld) [Vol rate/Area] 18.4 mL/min Low - PINF [facility] Glucose [Mass/Vol] 87 mg/dL 74 - 100 mg/dL [facility] Interpretation and review of laboratory results Abnormal [facility] Potassium [Moles/Vol] 4.3 mmol/L 3.5 - 5.1 mmol/L [facility] Protein [Mass/Vol] 7.3 g/dL 6.4 - 8.3 g/dL [facility] Sodium [Moles/Vol] 138 mmol/L 136 - 145 mmol/L [facility] Urea nitrogen [Mass/Vol] 15 mg/dL 9 - 23 mg/d L [facility] HEMOGLOBIN AND HEMATOCRIT, B LOODon 01-31-2025 Hematocrit (Bld) [Volume fraction] 28.8 % Low 40.0-52.0 [facility] Comment on above: Performed By: #### L AB753 ####Blow Pit Operator: DOMENICA JARA ([phone])[address] Hemoglobin (Bld) [Mass/Vol] 9.2 g/dL Low 13.0-18.0 [facility] Comment on above: Performed By: #### L AB753 ####Blow Pit Operator: DOMENICA JARA ([phone])[address] Hemoglobin (Bld) [Mass/Vol]o n 01-31-2025 Hematocrit (Bld) [Volume fraction] 28.8 % Low 40.0 - 52.0 % [facility] Interpretation and review of laboratory results Abnormal [facility] Laboratory - Chemistry and C hemistry - challengeon 01-31-2025 Magnesium [Mass/Vol] 2 mg/dL 1.6 - 2 .6 mg/dL [facility] Laboratory - Coagulationon 0 01-31-2025 PT Coag (Bld) [Time] 22.4 s High 9.0 - 12.0 s [facility] Laboratory - Hematology and Cell countson 01-31-2025 Hemoglobin (Bld) [Mass/Vol] 9.2 g/dL Low 13.0 - 18.0 g/dL [facility] MAGNESIUMon 01-31-2025 Magnesium [Mass/Vol] 2.0 mg/dL Normal 1.6-2.6 [facility] Comment on above: Result Comment: ARPAN Kaplan COMMENTS:Higher values can be expected in females during menses. Performed By: #### L AB113, LAB17, [id number] ####Blow Pit Operator: DOMENICA JARA ([phone])[facility])[address] [place] [address] Magnesium [Mass/Vol]on 01-31 [facility] No Panel Informationon 01-31 Interpretation and review of laboratory results Normal [facility] Nursing Noteon 01-31-2025 Nursing Note Wound Vac Dressing leaking with foam falling out. Dressing removed and W-D drsg applied. Normal [facility] Nursing Note Patient is out of room at time of visit. Will continue to follow patient for wound care needs. Wanda Quesada RN Normal [facility] Nursing Note Normal [facility] PHOSPHORUSon 01-31-2025 Phosphate [Mass/Vol] 4.6 mg/dL Normal 2.3-4.7 [facility] Comment on above: Performed By: #### L AB113, LAB17, [id number] ####Blow Pit Operator: DOMENICA JARA ([phone])[facility] ([facility])[address] [place] [address] PROTHROMBIN TIMEon INR Coag (PPP) [Relative time] 2.2 {INR} High 0.9-1.1 [facility] Comment on above: Result Comment: Vaughn [...] Myocardial Infarction Performed By: #### L AB320 ####Blow Pit Operator: DOMENICA JARA ([phone])[facility] ([facility])[address] [place] [address] PT Coag (PPP) [Time] 22.4 s High 9.0-12.0 [facility] Comment on above: Performed By: #### L AB320 ####Blow Pit Operator: DOMENICA [id number])[facility] ([facility] [place] [address] PT Coag (Bld) [Time]on 01-31 INR Coag (PPP) [Relative time] 2.2 {INR} High 0.9 - 1.1 [facility] Interpretation and review of laboratory results Abnormal [facility] Phosphate [Moles/Vol]on Phosphate [Mass/Vol] 4.6 mg/dL 2.3 - 4 .7 mg/dL [facility] Progress Noteon 01-31-2025 Progress Note Normal [facility] Normal [facility] Progress Note Normal [facility] Progress Note Normal [facility] Progress Note OCCUPATIONAL THERAPY [facility] Name/MRN: Jair Snyder ([id number]) Date: 01/31/2025 Attempted OT re-eval this AM, pt OOR at dialysis. Will follow and re-attempt as able. Giuliana Baird, OTR/L Normal [facility] Progress Note Normal [facility] Progress Note Normal [facility] Progress Note Normal [facility] 30on 01-30-2025 30 Normal [facility] [id number] 01-30-2025 [id number] Message sent to Business Unit Director to start [facility] auth for [place]. Normal [facility] [id number] Normal [facility] BASIC METABOLIC PANELon Anion gap [Moles/Vol] 13 mmol/L Normal 3-13 [facility] Comment on above: Performed By: #### L AB103, [id number], LAB15 ####Blow Pit Operator: DOMENICA JARA ([phone])[facility] ([facility])[address] [place] [address] Calcium [Mass/Vol] 9.6 mg/dL Normal 8.4-10.2 [facility] Comment on above: Performed By: #### L AB103, [id number], LAB15 ####Blow Pit Operator: DOMENICA JARA ([phone])[facility] ([facility] [place] [address] [place] Chloride [Moles/Vol] 99 mmol/L Normal 98-107 [facility] Comment on above: Performed By: #### L AB103, [id number], LAB15 ####Blow Pit Operator: DOMENICA JARA ([phone])[facility] ([facility] [place] [address] [place] CO2 [Moles/Vol] 23 mmol/L Normal 22-29 [facility] Comment on above: Performed By: #### L AB103, [id number], LAB15 ####Blow Pit Operator: DOMENICA JARA ([phone])[facility] ([facility])[address] [place] [address] Creatinine [Mass/Vol] 2.56 mg/dL High 0.72-1.25 [facility] Comment on above: Performed By: #### L AB103, [id number], LAB15 ####Blow Pit Operator: DOMENICA JARA ([phone])[facility] ([facility])[address] [place] [address] GLOMERULAR FILTRATION RATE ML/MIN/1.73 SQ M.PREDICTED 28.1 mL/min/1.73m*2 Low >60.0 [facility] Comment on above: Result Comment: Calc ulation based on the Chronic Kidney Disease Epidemiology Collaboration (CKD-EPI) equation refit without adjustment for race Performed By: #### L AB103, [id number], LAB15 ####Blow Pit Operator: DOMENICA JARA ([phone])[facility] ([facility])[address] [place] [address] [place] Glucose [Mass/Vol] 88 mg/dL Normal 74-100 [facility] Comment on above: Performed By: #### L AB103, [id number], LAB15 ####Blow Pit Operator: DOMENICA JARA ([phone])[facility] ([facility])[address] [place] [address] [place] Potassium [Moles/Vol] 3.7 mmol/L Normal 3.5-5.1 [facility] Comment on above: Result Comment: Plas ma potassium values may be up to 0.5 mmol/L lower than serum values. Performed By: #### L AB103, UNT301, LAB15 ####Blow Pit Operator: DOMENICA JARA ([phone])[facility] ([facility])[address] [place] [address] Sodium [Moles/Vol] 135 mmol/L Low 136-145 [facility] Comment on above: Performed By: #### L AB103, [id number], LAB15 ####Blow Pit Operator: DOMENICA JARA ([phone])[facility] ([facility])[address] [place] [address] Urea nitrogen [Mass/Vol] 10 mg/dL Normal 9-23 [facility] Comment on above: Performed By: #### L AB103, [id number], LAB15 ####Blow Pit Operator: DOMENICA JARA ([phone])[facility] ([facility])[address] [place] [address] Basic metabolic 1998 panelon 01-30-2025 Anion gap [Moles/Vol] 13 mmol/L 3 - 13 mmol/L [facility] Calcium [Mass/Vol] 9.6 mg/dL 8.4 - 10. 2 mg/dL [facility] Chloride [Moles/Vol] 99 mmol/L 98 - 10 7 mmol/L [facility] CO2 [Moles/Vol] 23 mmol/L 22 - 29 mmol/L [facility] Creatinine [Mass/Vol] 2.56 mg/dL High 0.72 - 1.25 mg/dL [facility] GFR/1.73 sq M.predicted (S/P/Bld) [Vol rate/Area] 28.1 mL/min Low - PINF [facility] Glucose [Mass/Vol] 88 mg/dL 74 - 100 mg/dL [facility] Interpretation and review of laboratory results Abnormal [facility] Potassium [Moles/Vol] 3.7 mmol/L 3.5 - 5.1 mmol/L [facility] Sodium [Moles/Vol] 135 mmol/L Low 136 - 145 mmol/L [facility] Urea nitrogen [Mass/Vol] 10 mg/dL 9 - 23 mg/d L [facility] CBC (HEMOGRAM)on 01-30-2025 Erythrocyte distribution width (RBC) [Ratio] 18.9 % High 11.5-15.0 [facility] Comment on above: Performed By: #### L AB294 ####Blow Pit Operator: DOMENICA JARA ([phone])[facility])[address] [place] [address] Hematocrit (Bld) [Volume fraction] 28.1 % Low 40.0-52.0 [facility] Comment on above: Performed By: #### L AB294 ####Blow Pit Operator: DOMENICA JARA ([phone])[facility])[address] [place] [address] Hemoglobin (Bld) [Mass/Vol] 8.7 g/dL Low 13.0-18.0 [facility] Comment on above: Performed By: #### L AB294 ####Blow Pit Operator: DOMENICA JARA ([phone])[facility])[address] [place] [address] MCH (RBC) [Entitic mass] 27.6 pg Normal 26.0-34.0 [facility] Comment on above: Performed By: #### L AB294 ####Blow Pit Operator: DOMENICA JARA ([phone])[facility])[address] [place] [address] MCHC 31.0 % Normal 30.5-36.0 [facility] Comment on above: Performed By: #### L AB294 ####Blow Pit Operator: DOMENICA JARA ([phone])[facility])[address] [place] [address] MCV (RBC) [Entitic vol] 89.2 fL Normal 77.0-99.0 [facility] Comment on above: Performed By: #### L AB294 ####Blow Pit Operator: DOMENICA JARA ([phone])[facility])[address] [place] [address] Platelet mean volume (Bld) [Entitic vol] 9.1 fL Normal 9.0-12.7 [facility] Comment on above: Performed By: #### L AB294 ####Blow Pit Operator: DOMENICA JARA ([id number])[facility])[address] [place] [address] Platelets (Bld) [#/Vol] 276 10*3/uL Normal 140-440 [facility] Comment on above: Performed By: #### L AB294 ####Blow Pit Operator: DOMENICA JARA ([id number])[facility] ([facility])[address] [place] [address] RBC (Bld) [#/Vol] 3.15 10*6/uL Low 4.40-5.90 [facility] Comment on above: Performed By: #### L AB294 ####Blow Pit Operator: DOMENICA JARA ([phone])[facility])[address] [place] [address] WBC (Bld) [#/Vol] 8.8 10*3/uL Normal 3.6-10.7 [facility] Comment on above: Performed By: #### L AB294 ####Blow Pit Operator: DOMENICA JARA ([phone])[facility])[address] [place] [address] CBC panel Auto (Bld)on 01-30 Erythrocyte distribution width (RBC) [Ratio] 18.9 % High 11.5 - 15.0 % [facility] Hematocrit (Bld) [Volume fraction] 28.1 % Low 40.0 - 52.0 % [facility] Hemoglobin (Bld) [Mass/Vol] 8.7 g/dL Low 13.0 - 18.0 g/dL [facility] Interpretation and review of laboratory results Abnormal [facility] MCH (RBC) [Entitic mass] 27.6 pg 26. 0 - 34.0 pg [facility] MCHC (RBC) [Mass/Vol] 31 % 30.5 - 36.0 % [facility] MCV (RBC) [Entitic vol] 89.2 fL 77.0 - 99.0 fL [facility] Platelet mean volume (Bld) [Entitic vol] 9.1 fL 9.0 - 12.7 fL [facility] Platelets (Bld) [#/Vol] 276 10*3/uL 140 - 440 10*3/uL [facility] RBC (Bld) [#/Vol] 3.15 10*6/uL Low 4.40 - 5.9 0 10*6/uL [facility] WBC (Bld) [#/Vol] 8.8 10*3/uL 3.6 - 10.7 10*3/uL [facility] HEMOGLOBIN AND HEMATOCRIT, B LOODon 01-30-2025 Hematocrit (Bld) [Volume fraction] 31.5 % Low 40.0-52.0 [facility] Comment on above: Performed By: #### L AB753 ####Blow Pit Operator: DOMENICA JARA ([phone])[facility] ([facility])[address] [place] [address] Hemoglobin (Bld) [Mass/Vol] 9.8 g/dL Low 13.0-18.0 [facility] Comment on above: Performed By: #### L AB753 ####Blow Pit Operator: DOMENICA JARA ([phone])[facility] ([facility])[address] [place] [address] Hemoglobin (Bld) [Mass/Vol]O rdered By: Rikki Caballero on 01-30-2025 Hematocrit (Bld) [Volume fraction] 31.5 % Low 40.0 - 52.0 % [facility] Interpretation and review of laboratory results Abnormal [facility] Laboratory - Chemistry and C hemistry - challengeon 01-30-2025 Glucose [Mass/Vol] 106 mg/dL High 70 - 100 mg/dL [facility] Glucose [Mass/Vol] 107 mg/dL High 70 - 100 mg/dL [facility] Glucose [Mass/Vol] 77 mg/dL 70 - 100 mg/dL [facility] Magnesium [Mass/Vol] 1.9 mg/dL 1.6 - 2 .6 mg/dL [facility] Laboratory - Coagulationon 0 01-30-2025 PT Coag (Bld) [Time] 24.9 s High 9.0 - 12.0 s [facility] Laboratory - Hematology and Cell countsOrdered By: Rikki Caballero on 01-30-2025 Hemoglobin (Bld) [Mass/Vol] 9.8 g/dL Low 13.0 - 18.0 g/dL [facility] MAGNESIUMon 01-30-2025 Magnesium [Mass/Vol] 1.9 mg/dL Normal 1.6-2.6 [facility] Comment on above: Result Comment: ARPAN Kaplan COMMENTS:Higher values can be expected in females during menses. Performed By: #### L AB103, [id number], LAB15 ####Blow Pit Operator: DOMENICA JARA ([phone])[facility] ([facility])[address] [place] [address] Magnesium [Mass/Vol]on 01-30 Interpretation and review of laboratory results Normal [facility] No Panel Informationon 01-30 Interpretation and review of laboratory results Abnormal [facility] Radiology Study observation (narrative) [facility] Interpretation and review of laboratory results Abnormal [facility] Interpretation and review of laboratory results Normal [facility] Blood Expiration Date [id number] [facility] Crossmatch interpretation COMP [facility] Dispense Status Released from [employer] [facility] Product Blood Type 9500 [facility] PRODUCT CODE [id number] [facility] ABO O [facility] Unit Number [id number] [facility] alth [facility] RH Negative [facility] Unit Volume 300 mL [facility] No Panel InformationOrdered By: Jun Borrero on 01-30-2025 [facility] Work Phone: Nursing Noteon 01-30-2025 Nursing Note Normal [facility] PHOSPHORUSon 01-30-2025 Phosphate [Mass/Vol] 3.7 mg/dL Normal 2.3-4.7 [facility] Comment on above: Performed By: #### L AB103, [id number], LAB15 ####Blow Pit Operator: DOMENICA JARA ([phone])[facility] ([facility])[address] [place] [address] PROTHROMBIN TIMEon INR Coag (PPP) [Relative time] 2.5 {INR} High 0.9-1.1 [facility] Comment on above: Performed By: #### L AB320 ####Blow Pit Operator: DOMENICA JARA ([phone])[facility] ([facility])[address] [place] [address] PT Coag (PPP) [Time] 24.9 s High 9.0-12.0 [facility] Comment on above: Performed By: #### L AB320 ####Blow Pit Operator: DOMENICA JARA ([phone])[facility] ([facility])[address] [place] [address] PT Coag (Bld) [Time]on 01-30 INR Coag (PPP) [Relative time] 2.5 {INR} High 0.9 - 1.1 [facility] Interpretation and review of laboratory results Abnormal [facility] Phosphate [Moles/Vol]on Interpretation and review of laboratory results Normal [facility] Phosphate [Mass/Vol] 3.7 mg/dL 2.3 - 4 .7 mg/dL [facility] Progress Noteon 01-30-2025 Progress Note Normal [facility] Progress Note OCCUPATIONAL THERAPY [facility] Name/MRN: Jair Snyder ([id number]) Date: 01/30/2025 Attempted OT services however, Pt is currently OOR-at specials for IR line- Per RN. Will re attempt for pre cert as schedule permits. VICKY Bates Normal [facility] Progress Note Speech-Language Pathology Patient is off of the unit for tunnel catheter placement. Will reschedule dysphagia treatment session for 01/31/2025 and determine if patient is a candidate for diet upgrade. Christina iLmon MS, CCC/RELIGIOUS LEADER Normal [facility] Progress Note Normal [facility] Progress Note Normal [facility] Progress [facility] Normal [facility] Progress Note Normal [facility] Progress Note Normal [facility] 30on 01-29-2025 30 Normal [facility] 30 Normal [facility] [id number] 01-29-2025 [id number] Updates placed to [facility] [place] via [employer] per TCC request. Await review and response regarding ability to accept. TCC notified. Electronically signed by NELSON Rodrigues [phone] 36on 01-29-2025 36 Chart reviewed, patient appears to be sensitive to warfarin at this time and I wouldn't be able to guarantee INR remains less than 3, so opted to hold dose today. I canceled order. 36 APTTon 01-29-2025 aPTT Coag (Bld) [Time] 51.4 s High 20.0-30.5 [facility] Comment on above: Result Comment: ARPAN Kaplan COMMENTS:NOTE: The therapeutic time for Heparin anticoagulation, based on Xa activity inhibition, is an APTT of 46-80 seconds. Performed By: #### L AB325, [id number] ####Blow Pit Operator: DOMENICA JARA ([phone])[facility])[address] [place] [address] BASIC METABOLIC PANELon Anion gap [Moles/Vol] 17 mmol/L High 3-13 [facility] Comment on above: Performed By: #### L AB113, CZI768, LAB15 ####Blow Pit Operator: DOMENICA JARA ([phone])[facility])[address] [place] [address] Calcium [Mass/Vol] 9.8 mg/dL Normal 8.4-10.2 [facility] Comment on above: Performed By: #### L AB113, [id number], LAB15 ####Blow Pit Operator: DOMENICA JARA ([phone])[facility] ([facility])[address] [place] [address] Chloride [Moles/Vol] 94 mmol/L Low 98-107 [facility] Comment on above: Performed By: #### L AB113, [id number], LAB15 ####Blow Pit Operator: DOMENICA JARA ([phone])[facility])[address] [place] [address] [place] CO2 [Moles/Vol] 23 mmol/L Normal 22-29 [facility] Comment on above: Performed By: #### L AB113, ZZM481, LAB15 ####Blow Pit Operator: DOMENICA JARA ([phone])[facility] ([facility])[address] [place] [address] Creatinine [Mass/Vol] 4.17 mg/dL High 0.72-1.25 [facility] Comment on above: Performed By: #### L AB113, YLB965, LAB15 ####Blow Pit Operator: DOMENICA JARA ([phone])[facility] ([facility])[address] [place] [address] GLOMERULAR FILTRATION RATE ML/MIN/1.73 SQ M.PREDICTED 15.6 mL/min/1.73m*2 Low >60.0 [facility] Comment on above: Result Comment: Calc ulation based on the Chronic Kidney Disease Epidemiology Collaboration (CKD-EPI) equation refit without adjustment for race Performed By: #### L AB113, OZP575, LAB15 ####Blow Pit Operator: DOMENICA JARA ([phone])[facility] ([facility])[address] [place] [address] Glucose [Mass/Vol] 80 mg/dL Normal 74-100 [facility] Comment on above: Performed By: #### L AB113, IKT218, LAB15 ####Blow Pit Operator: DOMENICA JARA ([phone])[facility])[address] [place] [address] Potassium [Moles/Vol] 3.7 mmol/L Normal 3.5-5.1 [facility] Comment on above: Result Comment: [facility] potassium values may be up to 0.5 mmol/L lower than serum values. Performed By: #### L AB113, QHP760, LAB15 ####Blow Pit Operator: DOMENICA JARA ([phone])[facility] [place] [address] Sodium [Moles/Vol] 134 mmol/L Low 136-145 [facility] Comment on above: Performed By: #### L AB113, RPZ030, LAB15 ####Blow Pit Operator: DOMENICA JARA ([phone])[facility] ([facility])[address] [place] [address] Urea nitrogen [Mass/Vol] 21 mg/dL Normal 9-23 [facility] Comment on above: Performed By: #### L AB113, [id number], LAB15 ####Blow Pit Operator: DOMENICA JARA ([phone])[facility] ([facility])[address] [place] [address] Basic metabolic 1998 panelon 01-29-2025 Anion gap [Moles/Vol] 17 mmol/L High 3 - 13 mmol/L [facility] Calcium [Mass/Vol] 9.8 mg/dL 8.4 - 10. 2 mg/dL [facility] Chloride [Moles/Vol] 94 mmol/L Low 98 - 10 7 mmol/L [facility] CO2 [Moles/Vol] 23 mmol/L 22 - 29 mmol/L [facility] Creatinine [Mass/Vol] 4.17 mg/dL High 0.72 - 1.25 mg/dL [facility] GFR/1.73 sq M.predicted (S/P/Bld) [Vol rate/Area] 15.6 mL/min Low - PINF [facility] Glucose [Mass/Vol] 80 mg/dL 74 - 100 mg/dL [facility] Potassium [Moles/Vol] 3.7 mmol/L 3.5 - 5.1 mmol/L [facility] Sodium [Moles/Vol] 134 mmol/L Low 136 - 145 mmol/L [facility] Urea nitrogen [Mass/Vol] 21 mg/dL 9 - 23 mg/d L [facility] CBC (HEMOGRAM)on 01-29-2025 Erythrocyte distribution width (RBC) [Ratio] 19.0 % High 11.5-15.0 [facility] Comment on above: Performed By: #### L AB294 ####Blow Pit Operator: DOMENICA JRAA ([phone])[facility] ([facility])[address] [place] [address] Hematocrit (Bld) [Volume fraction] 27.3 % Low 40.0-52.0 [facility] Comment on above: Performed By: #### L AB294 ####Blow Pit Operator: DOMENICA JARA ([phone])[facility] ([facility])[address] [place] [address] Hemoglobin (Bld) [Mass/Vol] 8.6 g/dL Low 13.0-18.0 [facility] Comment on above: Performed By: #### L AB294 ####Blow Pit Operator: DOMENICA JARA ([phone])[facility] ([facility])[address] [place] [address] MCH (RBC) [Entitic mass] 28.1 pg Normal 26.0-34.0 [facility] Comment on above: Performed By: #### L AB294 ####Blow Pit Operator: DOMENICA JARA ([phone])[facility])[address] [place] [address] MCHC 31.5 % Normal 30.5-36.0 [facility] Comment on above: Performed By: #### L AB294 ####Blow Pit Operator: DOMENICA JARA ([phone])[facility] ([facility])[address] [place] [address] MCV (RBC) [Entitic vol] 89.2 fL Normal 77.0-99.0 [facility] Comment on above: Performed By: #### L AB294 ####Blow Pit Operator: DOMENICA JARA ([phone])[facility] ([facility])[address] [place] [address] Platelet mean volume (Bld) [Entitic vol] 9.4 fL Normal 9.0-12.7 [facility] Comment on above: Performed By: #### L AB294 ####Blow Pit Operator: DOMENICA JARA ([phone])[facility])[address] [place] [address] Platelets (Bld) [#/Vol] 271 10*3/uL Normal 140-440 [facility] Comment on above: Performed By: #### L AB294 ####Blow Pit Operator: DOMENICA JARA ([phone])[facility])[address] [place] [address] RBC (Bld) [#/Vol] 3.06 10*6/uL Low 4.40-5.90 [facility] Comment on above: Performed By: #### L AB294 ####Blow Pit Operator: DOMENICA JARA ([phone])[facility] ([facility])[address] [place] [address] WBC (Bld) [#/Vol] 9.4 10*3/uL Normal 3.6-10.7 [facility] Comment on above: Performed By: #### L AB294 ####Blow Pit Operator: DOMENICA JARA ([phone])[facility] ([facility])[address] [place] [address] CBC panel Auto (Bld)on 01-29 Erythrocyte distribution width (RBC) [Ratio] 19 % High 11.5 - 15.0 % [facility] Hematocrit (Bld) [Volume fraction] 27.3 % Low 40.0 - 52.0 % [facility] Hemoglobin (Bld) [Mass/Vol] 8.6 g/dL Low 13.0 - 18.0 g/dL [facility] Interpretation and review of laboratory results Abnormal [facility] MCH (RBC) [Entitic mass] 28.1 pg 26. 0 - 34.0 pg [facility] MCHC (RBC) [Mass/Vol] 31.5 % 30.5 - 36.0 % [facility] MCV (RBC) [Entitic vol] 89.2 fL 77.0 - 99.0 fL [facility] Platelet mean volume (Bld) [Entitic vol] 9.4 fL 9.0 - 12.7 fL [facility] Platelets (Bld) [#/Vol] 271 10*3/uL 140 - 440 10*3/uL [facility] RBC (Bld) [#/Vol] 3.06 10*6/uL Low 4.40 - 5.9 0 10*6/uL [facility] WBC (Bld) [#/Vol] 9.4 10*3/uL 3.6 - 10.7 10*3/uL [facility] - Chemistry and C hemistry - challengeon 01-29-2025 Glucose [Mass/Vol] 82 mg/dL 70 - 100 mg/dL [facility] Glucose [Mass/Vol] 87 mg/dL 70 - 100 mg/dL [facility] Glucose [Mass/Vol] 91 mg/dL 70 - 100 mg/dL [facility] Magnesium [Mass/Vol] 2 mg/dL 1.6 - 2 .6 mg/dL [facility] Laboratory - Coagulationon 0 01-29-2025 Coagulation factor VIII activity actual/normal Coag (PPP) [Relative time] 412 % High 56 - 191 % [facility] vWf Ag actual/normal IA (PPP) [Relative mass conc] 281 % High 52 - 214 % [facility] vWf multimers Ql (PPP) See Note [facility] vWf ristocetin cofactor act actual/normal Platelet aggregation (PPP) [Relative time] 200 % 51 - 215 % [facility] PT Coag (Bld) [Time] 24 s High 9.0 - 12.0 s [facility] MAGNESIUMon 01-29-2025 Magnesium [Mass/Vol] 2.0 mg/dL Normal 1.6-2.6 [facility] Comment on above: Result Comment: ARPAN Kaplan COMMENTS:Higher values can be expected in females during menses. Performed By: #### L AB113, [id number], LAB15 ####Blow Pit Operator: DOMENICA JARA ([phone])[address] Magnesium [Mass/Vol]on 01-29 Interpretation and review of laboratory results Normal [facility] No Panel Informationon 01-29 Interpretation and review of laboratory results Normal [facility] Interpretation and review of laboratory results Normal [facility] Interpretation and review of laboratory results Abnormal [facility] Interpretation and review of laboratory results Normal [facility] Interpretation and review of laboratory results Abnormal [facility] Interpretation and review of laboratory results Abnormal [facility] Nursing Noteon 01-29-2025 Nursing Note I was able to get him into chair yesterday. Today he refuses but states maybe later. He is tired from dialysis Normal [facility] Nursing Note Patient bathed, refusing gown. He has some bloody drainage on pad and Dr Lira in at bedside and aware. Looks like it may be from wound but unsure. Normal [facility] Nursing Note Per Dr Lira request I called the coumadin clinic for them to advise on if patient should take tonight dose with pending tunneled cath placement Normal [facility] Nursing Note Patient returned from dialysis. He is sleeping but awakens for assessment. Lunch at bedside and he wants it left for now. Call light in reach Normal [facility] Nursing Note Normal [facility] Nursing Note Normal [facility] Nursing Note Patient in bed, anxious picking at everything. Refusing wound care to change his dressing. Dialysis is ready for patient. They would like me to hold off on his lopressor. Normal [facility] PHOSPHORUSon 01-29-2025 Phosphate [Mass/Vol] 4.9 mg/dL High 2.3-4.7 [facility] Comment on above: Performed By: #### L AB113, [id number], LAB15 ####Blow Pit Operator: DOMENICA JARA ([phone])[address] PROTHROMBIN TIMEon INR Coag (PPP) [Relative time] 2.4 {INR} High 0.9-1.1 [facility] Comment on above: Result Comment: Vaughn [...] Myocardial Infarction Performed By: #### L AB325, [id number] ####Blow Pit Operator: DOMENICA JARA ([phone])[facility] ([facility])[address] [place] [address] PT Coag (PPP) [Time] 24.0 s High 9.0-12.0 [facility] Comment on above: Performed By: #### L AB325, [id number] ####Blow Pit Operator: DOMENICA JARA ([phone])[facility] ([facility])[address] [place] [address] PT Coag (Bld) [Time]on 01-29 INR Coag (PPP) [Relative time] 2.4 {INR} High 0.9 - 1.1 [facility] Phosphate [Moles/Vol]on Phosphate [Mass/Vol] 4.9 mg/dL High 2.3 - 4 .7 mg/dL [facility] Progress Noteon 01-29-2025 Progress Note Normal [facility] Progress [facility] Normal [facility] Progress Note Normal [facility] Progress [facility] Normal [facility] Progress Note [facility] Normal [facility] aPTT Coag (Bld) [Time]on aPTT Coag (PPP) [Time] 51.4 s High 20.0 - 30.5 s [facility] 30on 01-28-2025 30 Normal [facility] 30 Normal [facility] APTTon 01-28-2025 aPTT Coag (Bld) [Time] 49.0 s High 20.0-30.5 [facility] Comment on above: Result Comment: ARPAN Kaplan COMMENTS:NOTE: The therapeutic time for Heparin anticoagulation, based on Xa activity inhibition, is an APTT of 46-80 seconds. Performed By: #### L AB325 ####Blow Pit Operator: DOMENICA JARA ([phone])[facility] ([facility])[address] [place] [address] aPTT Coag (Bld) [Time] 46.3 s High 20.0-30.5 [facility] Comment on above: Result Comment: ARPAN Kaplan COMMENTS:NOTE: The therapeutic time for Heparin anticoagulation, based on Xa activity inhibition, is an APTT of 46-80 seconds. Performed By: #### L AB325, [id number] ####Blow Pit Operator: DOMENICA JARA ([phone])[facility] ([facility])[address] [place] [address] BASIC METABOLIC PANELon 05-0 Anion gap [Moles/Vol] 13 mmol/L Normal 3-13 [facility] Comment on above: Performed By: #### L AB15, [id number], [id number] ####Blow Pit Operator: DOMENICA JARA ([phone])[facility] ([facility])[address] [place] [address] Calcium [Mass/Vol] 10.0 mg/dL Normal 8.4-10.2 [facility] Comment on above: Performed By: #### L AB15, TAP688, DAB243 ####Blow Pit Operator: DOMENICA JARA ([phone])[facility] ([facility])[address] [place] [address] Chloride [Moles/Vol] 98 mmol/L Normal 98-107 [facility] Comment on above: Performed By: #### L AB15, OLV246, XGI272 ####Blow Pit Operator: DOMENICA JARA ([id number])[facility] ([facility])[address] [place] [address] CO2 [Moles/Vol] 26 mmol/L Normal 22-29 [facility] Comment on above: Performed By: #### L AB15, FMZ944, VTY165 ####Blow Pit Operator: DOMENICA JARA ([phone])[facility] ([facility])[address] [place] [address] Creatinine [Mass/Vol] 3.37 mg/dL High 0.72-1.25 [facility] Comment on above: Performed By: #### L AB15, KZZ054, VMM073 ####Blow Pit Operator: DOMENICA JARA ([phone])[facility] ([facility])[address] [place] [address] GLOMERULAR FILTRATION RATE ML/MIN/1.73 SQ M.PREDICTED 20.2 mL/min/1.73m*2 Low >60.0 [facility] Comment on above: Result Comment: Calc ulation based on the Chronic Kidney Disease Epidemiology Collaboration (CKD-EPI) equation refit without adjustment for race Performed By: #### L AB15, [id number], HWH833 ####Blow Pit Operator: DOMENICA JARA ([phone])[facility] ([facility])[address] [place] [address] Glucose [Mass/Vol] 82 mg/dL Normal 74-100 [facility] Comment on above: Performed By: #### L AB15, ATZ943, [id number] ####Blow Pit Operator: DOMENICA JARA ([phone])[facility] ([facility])[address] [place] [address] Potassium [Moles/Vol] 3.6 mmol/L Normal 3.5-5.1 [facility] Comment on above: Result Comment: [facility] potassium values may be up to 0.5 mmol/L lower than serum values. Performed By: #### L AB15, BEU184, XBN971 ####Blow Pit Operator: DOMENICA JARA ([phone])[facility] ([facility])[address] [place] [address] Sodium [Moles/Vol] 137 mmol/L Normal 136-145 [facility] Comment on above: Performed By: #### L AB15, [id number], FHS534 ####Blow Pit Operator: DOMENICA JARA ([phone])[facility] ([facility])[address] [place] [address] Urea nitrogen [Mass/Vol] 14 mg/dL Normal 9-23 [facility] Comment on above: Performed By: #### L AB15, [id number], FLH980 ####Blow Pit Operator: DOMENICA JARA ([phone])[facility])[address] [place] [address] Basic metabolic 1998 panelon 01-28-2025 Anion gap [Moles/Vol] 13 mmol/L 3 - 13 mmol/L [facility] Calcium [Mass/Vol] 10 mg/dL 8.4 - 10. 2 mg/dL [facility] Chloride [Moles/Vol] 98 mmol/L 98 - 10 7 mmol/L [facility] CO2 [Moles/Vol] 26 mmol/L 22 - 29 mmol/L [facility] Creatinine [Mass/Vol] 3.37 mg/dL High 0.72 - 1.25 mg/dL [facility] GFR/1.73 sq M.predicted (S/P/Bld) [Vol rate/Area] 20.2 mL/min Low - PINF [facility] Glucose [Mass/Vol] 82 mg/dL 74 - 100 mg/dL [facility] Interpretation and review of laboratory results Abnormal [facility] Potassium [Moles/Vol] 3.6 mmol/L 3.5 - 5.1 mmol/L [facility] Sodium [Moles/Vol] 137 mmol/L 136 - 145 mmol/L [facility] Urea nitrogen [Mass/Vol] 14 mg/dL 9 - 23 mg/d L [facility] CBC (HEMOGRAM)on 01-28-2025 Erythrocyte distribution width (RBC) [Ratio] 19.0 % High 11.5-15.0 [facility] Comment on above: Performed By: #### L AB294 ####Blow Pit Operator: DOMENICA JARA ([phone])[address] Hematocrit (Bld) [Volume fraction] 26.3 % Low 40.0-52.0 [facility] Comment on above: Performed By: #### L AB294 ####Blow Pit Operator: DOMENICA JARA ([phone])[address] Hemoglobin (Bld) [Mass/Vol] 8.5 g/dL Low 13.0-18.0 [facility] Comment on above: Performed By: #### L AB294 ####Blow Pit Operator: DOMENCIA JARA ([phone])[facility])[address] [place] [address] MCH (RBC) [Entitic mass] 28.2 pg Normal 26.0-34.0 [facility] Comment on above: Performed By: #### L AB294 ####Blow Pit Operator: DOMENICA JARA ([phone])[address] MCHC 32.3 % Normal 30.5-36.0 [facility] Comment on above: Performed By: #### L AB294 ####Blow Pit Operator: DOMENICA JARA ([phone])[facility] ([facility])[address] [place] [address] MCV (RBC) [Entitic vol] 87.4 fL Normal 77.0-99.0 [facility] Comment on above: Performed By: #### L AB294 ####Blow Pit Operator: DOMENICA JARA ([phone])[facility] ([facility])[address] [place] [address] Platelet mean volume (Bld) [Entitic vol] 9.3 fL Normal 9.0-12.7 [facility] Comment on above: Performed By: #### L AB294 ####Blow Pit Operator: DOMENICA JARA ([phone])[facility] ([facility])[address] [place] [address] Platelets (Bld) [#/Vol] 240 10*3/uL Normal 140-440 [facility] Comment on above: Performed By: #### L AB294 ####Blow Pit Operator: DOMENICA JARA ([id number])[facility] ([facility])[address] [place] [address] RBC (Bld) [#/Vol] 3.01 10*6/uL Low 4.40-5.90 [facility] Comment on above: Performed By: #### L AB294 ####Blow Pit Operator: DOMENICA JARA ([phone])[facility] ([facility])[address] [place] [address] WBC (Bld) [#/Vol] 9.8 10*3/uL Normal 3.6-10.7 [facility] Comment on above: Performed By: #### L AB294 ####Blow Pit Operator: DOMENICA JARA ([phone])[facility])[address] [place] [address] CBC panel Auto (Bld)on 01-28 Erythrocyte distribution width (RBC) [Ratio] 19 % High 11.5 - 15.0 % [facility] Hematocrit (Bld) [Volume fraction] 26.3 % Low 40.0 - 52.0 % [facility] Hemoglobin (Bld) [Mass/Vol] 8.5 g/dL Low 13.0 - 18.0 g/dL [facility] Interpretation and review of laboratory results Abnormal [facility] MCH (RBC) [Entitic mass] 28.2 pg 26. 0 - 34.0 pg [facility] MCHC (RBC) [Mass/Vol] 32.3 % 30.5 - 36.0 % [facility] MCV (RBC) [Entitic vol] 87.4 fL 77.0 - 99.0 fL [facility] Platelet mean volume (Bld) [Entitic vol] 9.3 fL 9.0 - 12.7 fL [facility] Platelets (Bld) [#/Vol] 240 10*3/uL 140 - 440 10*3/uL [facility] RBC (Bld) [#/Vol] 3.01 10*6/uL Low 4.40 - 5.9 0 10*6/uL [facility] WBC (Bld) [#/Vol] 9.8 10*3/uL 3.6 - 10.7 10*3/uL [facility] - Chemistry and C hemistry - challengeon 01-28-2025 Glucose [Mass/Vol] 127 mg/dL High 70 - 100 mg/dL [facility] Magnesium [Mass/Vol] 2 mg/dL 1.6 - 2 .6 mg/dL [facility] Laboratory - Coagulationon 0 01-28-2025 PT Coag (Bld) [Time] 21.9 s High 9.0 - 12.0 s [facility] MAGNESIUMon 01-28-2025 Magnesium [Mass/Vol] 2.0 mg/dL Normal 1.6-2.6 [facility] Comment on above: Result Comment: ARPAN Kaplan COMMENTS:Higher values can be expected in females during menses. Performed By: #### L AB15, [id number], CPH746 ####Blow Pit Operator: DOMENICA JARA ([phone])[facility] ([address] Magnesium [Mass/Vol]on 01-28 Interpretation and review of laboratory results Normal [facility] No Panel Informationon 01-28 Interpretation and review of laboratory results Abnormal [facility] Interpretation and review of laboratory results Abnormal [facility] Nursing Noteon 01-28-2025 Nursing Note Report called to Ana Laura in [facility] Normal [facility] Nursing Note Normal [facility] Nursing Note Patient in envella bed. Wound vac to buttocks. Assisted patient to chair with heavy assist of 2. Will myron back. Call light in reach Normal [facility] PHOSPHORUSon 01-28-2025 Phosphate [Mass/Vol] 4.9 mg/dL High 2.3-4.7 [facility] Comment on above: Performed By: #### L AB15, [id number], VPT394 ####Blow Pit Operator: DOMENICA JARA ([phone])[address] PROTHROMBIN TIMEon INR Coag (PPP) [Relative time] 2.2 {INR} High 0.9-1.1 [facility] Comment on above: Result Comment: Vaughn [...] Myocardial Infarction Performed By: #### L AB325, [id number] ####Blow Pit Operator: DOMENICA JARA ([phone])[facility])[address] [place] [address] PT Coag (PPP) [Time] 21.9 s High 9.0-12.0 [facility] Comment on above: Performed By: #### L AB325, [id number] ####Blow Pit Operator: DOMENICA JARA ([phone])[facility])[address] [place] [address] PT Coag (Bld) [Time]on 01-28 INR Coag (PPP) [Relative time] 2.2 {INR} High 0.9 - 1.1 [facility] Phosphate [Moles/Vol]on Interpretation and review of laboratory results Abnormal [facility] Phosphate [Mass/Vol] 4.9 mg/dL High 2.3 - 4 .7 mg/dL [facility] Progress Noteon 01-28-2025 Progress Note Normal [facility] Progress Note Normal [facility] Progress Note Normal [facility] aPTT Coag (Bld) [Time]on aPTT Coag (PPP) [Time] 49 s High 20.0 - 30.5 s [facility] Interpretation and review of laboratory results Abnormal [facility] aPTT Coag (PPP) [Time] 46.3 s High 20.0 - 30.5 s [facility] 30on 01-27-2025 30 Normal [facility] APTTon 01-27-2025 aPTT Coag (Bld) [Time] 47.9 s High 20.0-30.5 [facility] Comment on above: Result Comment: ARPAN Kaplan COMMENTS:NOTE: The therapeutic time for Heparin anticoagulation, based on Xa activity inhibition, is an APTT of 46-80 seconds. Performed By: #### L AB325 ####Blow Pit Operator: DOMENICA JARA ([phone])[address] aPTT Coag (Bld) [Time] 49.6 s High 20.0-30.5 [facility] Comment on above: Result Comment: ARPAN Kaplan COMMENTS:NOTE: The therapeutic time for Heparin anticoagulation, based on Xa activity inhibition, is an APTT of 46-80 seconds. Performed By: #### L AB325 ####Blow Pit Operator: DOMENICA JARA ([phone])[address] aPTT Coag (Bld) [Time] 45.0 s High 20.0-30.5 [facility] Comment on above: Result Comment: ARPAN Kaplan COMMENTS:NOTE: The therapeutic time for Heparin anticoagulation, based on Xa activity inhibition, is an APTT of 46-80 seconds. Performed By: #### L AB325 ####Blow Pit Operator: DOMENICA JARA ([phone])[facility] ([facility])[address] [place] [address] aPTT Coag (Bld) [Time] 40.2 s High 20.0-30.5 [facility] Comment on above: Result Comment: ARPAN Kaplan COMMENTS:NOTE: The therapeutic time for Heparin anticoagulation, based on Xa activity inhibition, is an APTT of 46-80 seconds. Performed By: #### L AB320, [id number] ####Blow Pit Operator: DOMENICA JARA ([phone])[facility] ([facility])[address] [place] [address] BASIC METABOLIC PANELon 05-0 -2024 Anion gap [Moles/Vol] 17 mmol/L High 3-13 [facility] Comment on above: Performed By: #### L AB15, [id number], JNM735 ####Blow Pit Operator: DOMENICA JARA ([phone])[facility] ([facility])[address] [place] [address] Calcium [Mass/Vol] 9.9 mg/dL Normal 8.4-10.2 [facility] Comment on above: Performed By: #### L AB15, DCM212, UGY841 ####Blow Pit Operator: DOMENICA JARA ([phone])[facility] ([facility])[address] [place] [address] Chloride [Moles/Vol] 99 mmol/L Normal 98-107 [facility] Comment on above: Performed By: #### L AB15, [id number], [id number] ####Blow Pit Operator: DOMENICA JARA ([phone])[facility] ([facility])[address] [place] [address] CO2 [Moles/Vol] 23 mmol/L Normal 22-29 [facility] Comment on above: Performed By: #### L AB15, MZW394, MXK150 ####Blow Pit Operator: DOMENICA JARA ([phone])[facility] ([facility])[address] [place] [address] Creatinine [Mass/Vol] 2.27 mg/dL High 0.72-1.25 [facility] Comment on above: Performed By: #### L AB15, [id number], BRZ160 ####Blow Pit Operator: DOMENICA JARA ([phone])[facility])[address] [place] [address] [place] GLOMERULAR FILTRATION RATE ML/MIN/1.73 SQ M.PREDICTED 32.4 mL/min/1.73m*2 Low >60.0 [facility] Comment on above: Result Comment: Calc ulation based on the Chronic Kidney Disease Epidemiology Collaboration (CKD-EPI) equation refit without adjustment for race Performed By: #### Tameka ISAAC15, CCS769, CKE116 ####Blow Pit Operator: DOMENICA JARA ([phone])[facility])[address] [place] [address] Glucose [Mass/Vol] 115 mg/dL High 74-100 [facility] Comment on above: Performed By: #### Tameka RINCON, MUC409, GVJ279 ####Blow Pit Operator: DOMENICA JARA ([phone])[facility])[address] [place] [address] Potassium [Moles/Vol] 3.9 mmol/L Normal 3.5-5.1 [facility] Comment on above: Result Comment: [facility] potassium values may be up to 0.5 mmol/L lower than serum values. Performed By: #### Tameka ABKateryna, [id number], LGC872 ####Blow Pit Operator: DOMENICA JARA ([phone])[facility])[address] [place] [address] [place] Sodium [Moles/Vol] 139 mmol/L Normal 136-145 [facility] Comment on above: Performed By: #### L AB15, [id number], [id number] ####Blow Pit Operator: DOMENICA JARA ([phone])[facility])[address] [place] [address] [place] Urea nitrogen [Mass/Vol] 9 mg/dL Normal 9-23 [facility] Comment on above: Performed By: #### L AB15, [id number], [id number] ####Blow Pit Operator: DOMENICA JARA ([phone])[facility])[address] [place] [address] Basic metabolic 1998 panelon 01-27-2025 Anion gap [Moles/Vol] 17 mmol/L High 3 - 13 mmol/L [facility] Calcium [Mass/Vol] 9.9 mg/dL 8.4 - 10. 2 mg/dL [facility] Chloride [Moles/Vol] 99 mmol/L 98 - 10 7 mmol/L [facility] CO2 [Moles/Vol] 23 mmol/L 22 - 29 mmol/L [facility] Creatinine [Mass/Vol] 2.27 mg/dL High 0.72 - 1.25 mg/dL [facility] GFR/1.73 sq M.predicted (S/P/Bld) [Vol rate/Area] 32.4 mL/min Low - PINF [facility] Glucose [Mass/Vol] 115 mg/dL High 74 - 100 mg/dL [facility] Interpretation and review of laboratory results Abnormal [facility] Potassium [Moles/Vol] 3.9 mmol/L 3.5 - 5.1 mmol/L [facility] Sodium [Moles/Vol] 139 mmol/L 136 - 145 mmol/L [facility] Urea nitrogen [Mass/Vol] 9 mg/dL 9 - 23 mg/d L [facility] CBC (HEMOGRAM)on 01-27-2025 Erythrocyte distribution width (RBC) [Ratio] 19.1 % High 11.5-15.0 [facility] Comment on above: Performed By: #### L AB294 ####Blow Pit Operator: DOMENICA JARA ([id number])[facility] ([facility])[address] [place] [address] Hematocrit (Bld) [Volume fraction] 28.3 % Low 40.0-52.0 [facility] Comment on above: Performed By: #### L AB294 ####Blow Pit Operator: DOMENICA JARA ([phone])[facility])[address] [place] [address] Hemoglobin (Bld) [Mass/Vol] 9.0 g/dL Low 13.0-18.0 [facility] Comment on above: Performed By: #### L AB294 ####Blow Pit Operator: DOMENICA JARA ([id number])[facility])[address] [place] [address] MCH (RBC) [Entitic mass] 27.6 pg Normal 26.0-34.0 [facility] Comment on above: Performed By: #### L AB294 ####Blow Pit Operator: DOMENICA JARA ([phone])[facility])[address] [place] [address] MCHC 31.8 % Normal 30.5-36.0 [facility] Comment on above: Performed By: #### L AB294 ####Blow Pit Operator: DOMENICA JARA ([id number])[address] MCV (RBC) [Entitic vol] 86.8 fL Normal 77.0-99.0 [facility] Comment on above: Performed By: #### L AB294 ####Blow Pit Operator: DOMENICA JARA ([phone])[facility])[address] [place] [address] Platelet mean volume (Bld) [Entitic vol] 8.7 fL Low 9.0-12.7 [facility] Comment on above: Performed By: #### L AB294 ####Blow Pit Operator: DOMENICA JARA ([id number])[facility])[address] [place] [address] Platelets (Bld) [#/Vol] 273 10*3/uL Normal 140-440 [facility] Comment on above: Performed By: #### L AB294 ####Blow Pit Operator: DOMENICA JARA ([phone])[facility])[address] [place] [address] RBC (Bld) [#/Vol] 3.26 10*6/uL Low 4.40-5.90 [facility] Comment on above: Performed By: #### L AB294 ####Blow Pit Operator: DOMENICA JARA ([phone])[facility] ([facility])[address] [place] [address] WBC (Bld) [#/Vol] 10.0 10*3/uL Normal 3.6-10.7 [facility] Comment on above: Performed By: #### L AB294 ####Blow Pit Operator: DOMENICA JARA ([id number])[facility] ([facility])[address] [place] [address] CBC panel Auto (Bld)on 01-27 Erythrocyte distribution width (RBC) [Ratio] 19.1 % High 11.5 - 15.0 % [facility] Hematocrit (Bld) [Volume fraction] 28.3 % Low 40.0 - 52.0 % [facility] Hemoglobin (Bld) [Mass/Vol] 9 g/dL Low 13.0 - 18.0 g/dL [facility] Interpretation and review of laboratory results Abnormal [facility] MCH (RBC) [Entitic mass] 27.6 pg 26. 0 - 34.0 pg [facility] MCHC (RBC) [Mass/Vol] 31.8 % 30.5 - 36.0 % [facility] MCV (RBC) [Entitic vol] 86.8 fL 77.0 - 99.0 fL [facility] Platelet mean volume (Bld) [Entitic vol] 8.7 fL Low 9.0 - 12.7 fL [facility] Platelets (Bld) [#/Vol] 273 10*3/uL 140 - 440 10*3/uL [facility] RBC (Bld) [#/Vol] 3.26 10*6/uL Low 4.40 - 5.9 0 10*6/uL [facility] WBC (Bld) [#/Vol] 10 10*3/uL 3.6 - 10.7 10*3/uL [facility] HEMOGLOBIN AND HEMATOCRIT, B LOODon 01-27-2025 Hematocrit (Bld) [Volume fraction] 26.3 % Low 40.0-52.0 [facility] Comment on above: Performed By: #### L AB753 ####Blow Pit Operator: DOMENICA JARA ([phone])[facility] [place] [address] Hemoglobin (Bld) [Mass/Vol] 8.4 g/dL Low 13.0-18.0 [facility] Comment on above: Performed By: #### L AB753 ####Blow Pit Operator: DOMENICA JARA ([phone])[facility] ([facility])[address] [place] [address] Hemoglobin (Bld) [Mass/Vol]o n 01-27-2025 Hematocrit (Bld) [Volume fraction] 26.3 % Low 40.0 - 52.0 % [facility] Interpretation and review of laboratory results Abnormal [facility] Laboratory - Chemistry and C hemistry - challengeon 01-27-2025 Glucose [Mass/Vol] 102 mg/dL High 70 - 100 mg/dL [facility] Glucose [Mass/Vol] 127 mg/dL High 70 - 100 mg/dL [facility] Glucose [Mass/Vol] 87 mg/dL 70 - 100 mg/dL [facility] Magnesium [Mass/Vol] 1.9 mg/dL 1.6 - 2 .6 mg/dL [facility] Laboratory - Coagulationon 0 01-27-2025 PT Coag (Bld) [Time] 19.9 s High 9.0 - 12.0 s [facility] Laboratory - Hematology and Cell countson 01-27-2025 Hemoglobin (Bld) [Mass/Vol] 8.4 g/dL Low 13.0 - 18.0 g/dL [facility] MAGNESIUMon 01-27-2025 Magnesium [Mass/Vol] 1.9 mg/dL Normal 1.6-2.6 [facility] Comment on above: Result Comment: ARPAN Kaplan COMMENTS:Higher values can be expected in females during menses. Performed By: #### L AB15, [id number], [id number] ####Blow Pit Operator: DOMENICA JARA ([phone])[facility] ([facility])[address] [place] [address] Magnesium [Mass/Vol]on 01-27 [facility] No Panel Informationon 01-27 Interpretation and review of laboratory results Abnormal [facility] Interpretation and review of laboratory results Abnormal [facility] Interpretation and review of laboratory results Normal [facility] Interpretation and review of laboratory results Abnormal [facility] Interpretation and review of laboratory results Normal [facility] Nursing Noteon 01-27-2025 Nursing Note Nurse to nurse report called to . Pt in for transport. Normal [facility] PHOSPHORUSon 01-27-2025 Phosphate [Mass/Vol] 3.4 mg/dL Normal 2.3-4.7 [facility] Comment on above: Performed By: #### L AB15, [id number], [id number] ####Blow Pit Operator: DOMENICA JARA ([phone])[facility])[address] [place] [address] PROTHROMBIN TIMEon INR Coag (PPP) [Relative time] 1.9 {INR} High 0.9-1.1 [facility] Comment on above: Result Comment: Vaughn [...] Myocardial Infarction Performed By: #### L AB320, [id number] ####Blow Pit Operator: DOMENICA JARA ([id number])[facility])[address] [place] [address] PT Coag (PPP) [Time] 19.9 s High 9.0-12.0 [facility] Comment on above: Performed By: #### L AB320, [id number] ####Blow Pit Operator: DOMENICA JARA ([phone])[facility])[address] [place] [address] PT Coag (Bld) [Time]on 01-27 INR Coag (PPP) [Relative time] 1.9 {INR} High 0.9 - 1.1 [facility] Phosphate [Moles/Vol]on Phosphate [Mass/Vol] 3.4 mg/dL 2.3 - 4 .7 mg/dL [facility] Progress Noteon 01-27-2025 Progress Note Normal [facility] Progress Note Normal [facility] Progress Note Normal [facility] Progress Note Normal [facility] aPTT Coag (Bld) [Time]on aPTT Coag (PPP) [Time] 47.9 s High 20.0 - 30.5 s [facility] Interpretation and review of laboratory results Abnormal [facility] aPTT Coag (PPP) [Time] 49.6 s High 20.0 - 30.5 s [facility] Interpretation and review of laboratory results Abnormal [facility] aPTT Coag (PPP) [Time] 45 s High 20.0 - 30.5 s [facility] Interpretation and review of laboratory results Abnormal [facility] aPTT Coag (PPP) [Time] 40.2 s High 20.0 - 30.5 s [facility] 30on 01-26-2025 30 Normal [facility] [id number] 01-26-2025 [id number] Dialysis placed to [facility] via [facility] per TCC request. Normal [facility] [id number] Normal [facility] APTTon 01-26-2025 aPTT Coag (Bld) [Time] 41.6 s High 20.0-30.5 [facility] Comment on above: Result Comment: ARPAN Kaplan COMMENTS:NOTE: The therapeutic time for Heparin anticoagulation, based on Xa activity inhibition, is an APTT of 46-80 seconds. Performed By: #### L AB325 ####Blow Pit Operator: DOMENICA JARA ([id number])[facility] ([address] aPTT Coag (Bld) [Time] s Critically high 20.0-30. 5 [facility] Comment on above: Result Comment: ARPAN Kaplan COMMENTS:NOTE: The therapeutic time for Heparin anticoagulation, based on Xa activity inhibition, is an APTT of 46-80 seconds. Performed By: #### L AB325 ####Blow Pit Operator: DOMENICA JARA ([id number])[facility])[address] [place] [address] aPTT Coag (Bld) [Time] 47.0 s High 20.0-30.5 [facility] Comment on above: Result Comment: ARPAN Kaplan COMMENTS:NOTE: The therapeutic time for Heparin anticoagulation, based on Xa activity inhibition, is an APTT of 46-80 seconds. Performed By: #### L AB320, PNS210 ####Blow Pit Operator: DOMENICA JARA ([id number])[facility] ([facility])[address] [place] [address] BASIC METABOLIC PANELon 05-0 Anion gap [Moles/Vol] 16 mmol/L High 3-13 [facility] Comment on above: Performed By: #### L AB103, [id number], LAB15 ####Blow Pit Operator: DOMENICA JARA ([id number])[facility] ([facility])[address] [place] [address] Calcium [Mass/Vol] 9.0 mg/dL Normal 8.4-10.2 [facility] Comment on above: Performed By: #### L AB103, [id number], LAB15 ####Blow Pit Operator: DOMENICA JARA ([id number])[facility] ([facility])[address] [place] [address] Chloride [Moles/Vol] 100 mmol/L Normal 98-107 [facility] Comment on above: Performed By: #### L AB103, GXM745, LAB15 ####Blow Pit Operator: DOMENICA JARA ([phone])[facility] ([facility])[address] [place] [address] CO2 [Moles/Vol] 20 mmol/L Low 22-29 [facility] Comment on above: Performed By: #### L AB103, [id number], LAB15 ####Blow Pit Operator: DOMENICA JARA ([id number])[facility] ([facility])[address] [place] [address] Creatinine [Mass/Vol] 3.37 mg/dL High 0.72-1.25 [facility] Comment on above: Performed By: #### L AB103, TTD982, LAB15 ####Blow Pit Operator: DOMENICA JARA ([id number])[facility])[address] [place] [address] GLOMERULAR FILTRATION RATE ML/MIN/1.73 SQ M.PREDICTED 20.2 mL/min/1.73m*2 Low >60.0 [facility] Comment on above: Result Comment: Calc ulation based on the Chronic Kidney Disease Epidemiology Collaboration (CKD-EPI) equation refit without adjustment for race Performed By: #### L AB103, [id number], LAB15 ####Blow Pit Operator: DOMENICA JARA ([phone])[facility])[address] [place] [address] Glucose [Mass/Vol] 75 mg/dL Normal 74-100 [facility] Comment on above: Performed By: #### L AB103, LSP545, LAB15 ####Blow Pit Operator: DOMENICA JARA ([id number])[facility])[address] [place] [address] Potassium [Moles/Vol] 5.1 mmol/L Normal 3.5-5.1 [facility] Comment on above: Result Comment: TCSi gnificant interference from hemolysis. Result integrity compromised. Interpret with caution. Performed By: #### L AB103, PDZ346, LAB15 ####Blow Pit Operator: DOMENICA JARA ([id number])[facility] ([facility])[address] [place] [address] [place] Sodium [Moles/Vol] 136 mmol/L Normal 136-145 [facility] Comment on above: Performed By: #### L AB103, [id number], LAB15 ####Blow Pit Operator: DOMENICA JARA ([phone])[facility])[address] [place] [address] [place] Urea nitrogen [Mass/Vol] 19 mg/dL Normal 9-23 [facility] Comment on above: Performed By: #### L AB103, [id number], LAB15 ####Blow Pit Operator: DOMENICA JARA ([id number])[facility])[address] [place] [address] Basic metabolic 1998 panelon 01-26-2025 Anion gap [Moles/Vol] 16 mmol/L High 3 - 13 mmol/L [facility] Calcium [Mass/Vol] 9 mg/dL 8.4 - 10. 2 mg/dL [facility] Chloride [Moles/Vol] 100 mmol/L 98 - 10 7 mmol/L [facility] CO2 [Moles/Vol] 20 mmol/L Low 22 - 29 mmol/L [facility] Creatinine [Mass/Vol] 3.37 mg/dL High 0.72 - 1.25 mg/dL [facility] GFR/1.73 sq M.predicted (S/P/Bld) [Vol rate/Area] 20.2 mL/min Low - PINF [facility] Glucose [Mass/Vol] 75 mg/dL 74 - 100 mg/dL [facility] Interpretation and review of laboratory results Abnormal [facility] Potassium [Moles/Vol] 5.1 mmol/L 3.5 - 5.1 mmol/L [facility] Sodium [Moles/Vol] 136 mmol/L 136 - 145 mmol/L [facility] Urea nitrogen [Mass/Vol] 19 mg/dL 9 - 23 mg/d L [facility] CBC (HEMOGRAM)on 01-26-2025 Erythrocyte distribution width (RBC) [Ratio] 19.3 % High 11.5-15.0 [facility] Comment on above: Performed By: #### L AB294 ####Blow Pit Operator: DOMENICA JARA ([phone])[facility] ([facility])[address] [place] [address] Hematocrit (Bld) [Volume fraction] 21.0 % Low 40.0-52.0 [facility] Comment on above: Performed By: #### L AB294 ####Blow Pit Operator: DOMENICA JARA ([id number])[facility] ([facility])[address] [place] [address] Hemoglobin (Bld) [Mass/Vol] 6.7 g/dL Critically low 13.0-18.0 [facility] Comment on above: Performed By: #### L AB294 ####Blow Pit Operator: DOMENICA JARA ([phone])[facility])[address] [place] [address] MCH (RBC) [Entitic mass] 27.8 pg Normal 26.0-34.0 [facility] Comment on above: Performed By: #### L AB294 ####Blow Pit Operator: DOMENICA JARA ([id number])[facility])[address] [place] [address] MCHC 31.9 % Normal 30.5-36.0 [facility] Comment on above: Performed By: #### L AB294 ####Blow Pit Operator: DOMENICA JARA ([id number])[facility])[address] [place] [address] MCV (RBC) [Entitic vol] 87.1 fL Normal 77.0-99.0 [facility] Comment on above: Performed By: #### L AB294 ####Blow Pit Operator: DOMENICA JARA ([id number])[facility])[address] [place] [address] Platelet mean volume (Bld) [Entitic vol] 10.0 fL Normal 9.0-12.7 [facility] Comment on above: Performed By: #### L AB294 ####Blow Pit Operator: DOMENICA JARA ([id number])[facility])[address] [place] [address] Platelets (Bld) [#/Vol] 265 10*3/uL Normal 140-440 [facility] Comment on above: Performed By: #### L AB294 ####Blow Pit Operator: DOMENICA JARA ([phone])[facility])[address] [place] [address] RBC (Bld) [#/Vol] 2.41 10*6/uL Low 4.40-5.90 [facility] Comment on above: Performed By: #### L AB294 ####Blow Pit Operator: DOMENICA JARA ([id number])[facility] ([facility])[address] [place] [address] WBC (Bld) [#/Vol] 8.7 10*3/uL Normal 3.6-10.7 [facility] Comment on above: Performed By: #### L AB294 ####Blow Pit Operator: DOMENICA JARA ([id number])[facility] ([facility])[address] [place] [address] CBC panel Auto (Bld)Ordered By: Brandy Ross on 01-26-2025 Erythrocyte distribution width (RBC) [Ratio] 19.3 % High 11.5 - 15.0 % [facility] Hematocrit (Bld) [Volume fraction] 21 % Low 40.0 - 52.0 % [facility] Hemoglobin (Bld) [Mass/Vol] 6.7 g/dL Critically low 13.0 - 18.0 g/dL [facility] Interpretation and review of laboratory results Abnormal [facility] MCH (RBC) [Entitic mass] 27.8 pg 26. 0 - 34.0 pg [facility] MCHC (RBC) [Mass/Vol] 31.9 % 30.5 - 36.0 % [facility] MCV (RBC) [Entitic vol] 87.1 fL 77.0 - 99.0 fL [facility] Platelet mean volume (Bld) [Entitic vol] 10 fL 9.0 - 12.7 fL [facility] Platelets (Bld) [#/Vol] 265 10*3/uL 140 - 440 10*3/uL [facility] RBC (Bld) [#/Vol] 2.41 10*6/uL Low 4.40 - 5.9 0 10*6/uL [facility] WBC (Bld) [#/Vol] 8.7 10*3/uL 3.6 - 10.7 10*3/uL [facility] HBV surface Ab IA Qnon 01-26 [facility] HBV surface Ag IA Qlon 01-26 Interpretation and review of laboratory results Normal [facility] HEMOGLOBIN AND HEMATOCRIT, B LOODon 01-26-2025 Hematocrit (Bld) [Volume fraction] 27.9 % Low 40.0-52.0 [facility] Comment on above: Performed By: #### L AB753 ####Blow Pit Operator: DOMENICA JARA ([id number])[facility])[address] [place] [address] Hemoglobin (Bld) [Mass/Vol] 9.0 g/dL Low 13.0-18.0 [facility] Comment on above: Performed By: #### L AB753 ####Blow Pit Operator: DOMENICA JARA ([phone])[facility])[address] [place] [address] Hematocrit (Bld) [Volume fraction] 28.4 % Low 40.0-52.0 [facility] Comment on above: Performed By: #### L AB753 ####Blow Pit Operator: DOMENICA JARA ([id number])[address] Hemoglobin (Bld) [Mass/Vol] 8.9 g/dL Low 13.0-18.0 [facility] Comment on above: Performed By: #### L AB753 ####Blow Pit Operator: DOMENICA JARA ([phone])[facility])[address] [place] [address] HEPATITIS B SURFACE ANTIBODY on 01-26-2025 HEPATITIS B VIRUS SURFACE AB <8.0 Normal [facility] Comment on above: Result Comment: TRAVISE R COMMENTS:Interpretation:<8.0 Non-Reactive8.0-11.9 Equivocal>= 12.0 Ab DetectedNote: If an equivocal result is interpreted, an antibody status is unable to be determined. Collect new specimen if clinically indicated. Performed By: #### L AB472, [id number] ####Blow Pit Operator: DOMENICA JARA ([phone])[address] HEPATITIS B SURFACE ANTIGENo n 01-26-2025 HEPATITIS B VIRUS SURFACE AG Not detected Normal Not Detected [facility] Comment on above: Performed By: #### L AB472, [id number] ####Blow Pit Operator: DOMENICA [id number])[facility] ([facility])[address] [place] [address] Hemoglobin (Bld) [Mass/Vol]o n 01-26-2025 Hematocrit (Bld) [Volume fraction] 27.9 % Low 40.0 - 52.0 % [facility] Interpretation and review of laboratory results Abnormal [facility] Hematocrit (Bld) [Volume fraction] 28.4 % Low 40.0 - 52.0 % [facility] Interpretation and review of laboratory results Abnormal [facility] Laboratory - Chemistry and C hemistry - challengeon 01-26-2025 Magnesium [Mass/Vol] 2 mg/dL 1.6 - 2 .6 mg/dL [facility] Laboratory - Coagulationon 0 01-26-2025 PT Coag (Bld) [Time] 18.3 s High 9.0 - 12.0 s [facility] Laboratory - Hematology and Cell countson 01-26-2025 Hemoglobin (Bld) [Mass/Vol] 9 g/dL Low 13.0 - 18.0 g/dL [facility] Hemoglobin (Bld) [Mass/Vol] 8.9 g/dL Low 13.0 - 18.0 g/dL [facility] Laboratory - Microbiology an d Antimicrobial susceptibilityon 01-26-2025 HBV surface Ab IA Qn mIU/mL [facility] HBV surface Ag IA Ql Not detected Not Detected [facility] MAGNESIUMon 01-26-2025 Magnesium [Mass/Vol] 2.0 mg/dL Normal 1.6-2.6 [facility] Comment on above: Result Comment: ARPAN Kaplan COMMENTS:Higher values can be expected in females during menses. Performed By: #### L AB103, [id number], LAB15 ####Blow Pit Operator: DOMENICA JARA ([id number])[facility] ([facility] [place] [address] Magnesium [Mass/Vol]on 01-26 Interpretation and review of laboratory results Normal [facility] No Panel Informationon 01-26 [facility] Blood Expiration Date [id number] [facility] Crossmatch interpretation COMP [facility] Dispense Status Transfused [facility] Product Blood Type 9500 [facility] PRODUCT CODE [id number] [facility] ABO O [facility] Unit Number [id number] [facility] RH Negative [facility] Unit Volume 300 mL [facility] Interpretation and review of laboratory results Abnormal [facility] Nursing Noteon 01-26-2025 Nursing Note Normal [facility] Nursing Note APTT >139, resident notified. Normal [facility] PHOSPHORUSon 01-26-2025 Phosphate [Mass/Vol] 5.3 mg/dL High 2.3-4.7 [facility] Comment on above: Result Comment: TCPo tential interference from hemolysis Performed By: #### L AB103, [id number], LAB15 ####Blow Pit Operator: DOMENICA JARA ([phone])[facility])[address] [place] [address] PROTHROMBIN TIMEon INR Coag (PPP) [Relative time] 1.8 {INR} High 0.9-1.1 [facility] Comment on above: Result Comment: Vaughn [...] Myocardial Infarction Performed By: #### L AB320, PYR260 ####Blow Pit Operator: DOMENICA JARA ([phone])[facility] ([facility])[address] [place] [address] PT Coag (PPP) [Time] 18.3 s High 9.0-12.0 [facility] Comment on above: Performed By: #### L AB320, [id number] ####Blow Pit Operator: DOMENICA JARA ([phone])[facility])[address] [place] [address] PT Coag (Bld) [Time]on 01-26 INR Coag (PPP) [Relative time] 1.8 {INR} High 0.9 - 1.1 [facility] Phosphate [Moles/Vol]on Interpretation and review of laboratory results Abnormal [facility] Phosphate [Mass/Vol] 5.3 mg/dL High 2.3 - 4 .7 mg/dL [facility] Progress Noteon 01-26-2025 Progress Note PHYSICAL THERAPY [facility] Name/MRN: Jair Snyder ([id number]) Date: 01/26/2025 Attempt Note Pt on iHD. Will re-attempt as able. Chantal Sucaldito, PT Normal [facility] Progress Note Normal [facility] Progress Note Speech-Language Pathology Pt is a hold at this time, as he is receiving dialysis. Will re-attempt next date as schedule permits. Treva Mccallum MS. [facility] Normal [facility] Progress Note Normal [facility] Progress [facility] Normal [facility] Progress [facility] Normal [facility] Progress [facility] Normal [facility] Progress Note Normal [facility] aPTT Coag (Bld) [Time]on aPTT Coag (PPP) [Time] 41.6 s High 20.0 - 30.5 s [facility] Interpretation and review of laboratory results Abnormal [facility] aPTT Coag (PPP) [Time] 47 s High 20.0 - 30.5 s [facility] aPTT Coag (Bld) [Time]Ordere d By: Alan Santos on 01-26-2025 aPTT Coag (PPP) [Time] s Critically high 20.0 - 3 0.5 s [facility] Interpretation and review of laboratory results Abnormal [facility] 30on 01-25-2025 30 Normal [facility] 30 Normal [facility] [id number] 01-25-2025 [id number] Normal [facility] [id number] OPAT placed to [facility] via [employer] per TCC request. Normal [facility] [id number] Normal [facility] APTTon 01-25-2025 aPTT Coag (Bld) [Time] s Critically high 20.0-30. 5 [facility] Comment on above: Result Comment: ARPAN Kaplan COMMENTS:NOTE: The therapeutic time for Heparin anticoagulation, based on Xa activity inhibition, is an APTT of 46-80 seconds. Performed By: #### L AB325 ####Blow Pit Operator: DOMENICA JARA ([phone])[facility] ([facility])[address] [place] [address] aPTT Coag (Bld) [Time] 83.1 s High 20.0-30.5 [facility] Comment on above: Result Comment: ARPAN Kaplan COMMENTS:NOTE: The therapeutic time for Heparin anticoagulation, based on Xa activity inhibition, is an APTT of 46-80 seconds. Performed By: #### L AB325, [id number] ####Blow Pit Operator: DOMENICA JARA ([phone])[facility] ([facility])[address] [place] [address] BASIC METABOLIC PANELon 05-0 Anion gap [Moles/Vol] 16 mmol/L High 3-13 [facility] Comment on above: Performed By: #### L AB103, LAB15, [id number] ####Blow Pit Operator: DOMENICA JARA ([phone])[facility] ([facility])[address] [place] [address] Calcium [Mass/Vol] 10.1 mg/dL Normal 8.4-10.2 [facility] Comment on above: Performed By: #### L AB103, LAB15, [id number] ####Blow Pit Operator: DOMENICA JARA ([phone])[facility] [place] [address] [place] Chloride [Moles/Vol] 98 mmol/L Normal 98-107 [facility] Comment on above: Performed By: #### L AB103, LAB15, [id number] ####Blow Pit Operator: DOMENICA JARA ([phone])[facility] ([facility])[address] [place] [address] [place] CO2 [Moles/Vol] 24 mmol/L Normal 22-29 [facility] Comment on above: Performed By: #### L AB103, LAB15, [id number] ####Blow Pit Operator: DOMENICA JARA ([phone])[facility] ([facility])[address] [place] [address] Creatinine [Mass/Vol] 2.54 mg/dL High 0.72-1.25 [facility] Comment on above: Performed By: #### Tameka AB103, LAB15, [id number] ####Blow Pit Operator: DOMENICA JARA ([phone])[facility] ([facility])[address] [place] [address] GLOMERULAR FILTRATION RATE ML/MIN/1.73 SQ M.PREDICTED 28.3 mL/min/1.73m*2 Low >60.0 [facility] Comment on above: Result Comment: Calc ulation based on the Chronic Kidney Disease Epidemiology Collaboration (CKD-EPI) equation refit without adjustment for race Performed By: #### Tameka KWONG, LAB15, [id number] ####Blow Pit Operator: DOMENICA JARA ([phone])[facility] ([facility])[address] [place] [address] Glucose [Mass/Vol] 74 mg/dL Normal 74-100 [facility] Comment on above: Performed By: #### Tameka AB103, LAB15, [id number] ####Blow Pit Operator: DOMENICA JARA ([phone])[facility])[address] [place] [address] Potassium [Moles/Vol] 3.9 mmol/L Normal 3.5-5.1 [facility] Comment on above: Result Comment: [facility] potassium values may be up to 0.5 mmol/L lower than serum values. Performed By: #### L AB103, LAB15, [id number] ####Blow Pit Operator: DOMENICA JARA ([phone])[facility])[address] [place] [address] Sodium [Moles/Vol] 138 mmol/L Normal 136-145 [facility] Comment on above: Performed By: #### L AB103, LAB15, [id number] ####Blow Pit Operator: DOMENICA JARA ([phone])[facility] ([facility])[address] [place] [address] Urea nitrogen [Mass/Vol] 15 mg/dL Normal 9-23 [facility] Comment on above: Performed By: #### L AB103, LAB15, [id number] ####Blow Pit Operator: DOMENICA JARA ([phone])[facility] ([facility])[address] [place] [address] BLOOD TYPE AND SCREEN GELon 01-25-2025 ABO GROUPING O Normal [facility] Comment on above: Performed By: #### L AB276 ####Blow Pit Operator: DOMENICA JARA ([phone])[facility] BLOOD [facility] ([facility])[address] [place] [address] RH TYPE IN BLOOD Negative Normal [facility] Comment on above: Performed By: #### L AB276 ####Blow Pit Operator: DOMENICA JARA ([phone])[facility] ([facility])[address] [place] [address] Basic metabolic 1998 panelon 01-25-2025 Anion gap [Moles/Vol] 16 mmol/L High 3 - 13 mmol/L [facility] Calcium [Mass/Vol] 10.1 mg/dL 8.4 - 10. 2 mg/dL [facility] Chloride [Moles/Vol] 98 mmol/L 98 - 10 7 mmol/L [facility] CO2 [Moles/Vol] 24 mmol/L 22 - 29 mmol/L [facility] Creatinine [Mass/Vol] 2.54 mg/dL High 0.72 - 1.25 mg/dL [facility] GFR/1.73 sq M.predicted (S/P/Bld) [Vol rate/Area] 28.3 mL/min Low - PINF [facility] Glucose [Mass/Vol] 74 mg/dL 74 - 100 mg/dL [facility] Interpretation and review of laboratory results Abnormal [facility] Potassium [Moles/Vol] 3.9 mmol/L 3.5 - 5.1 mmol/L [facility] Sodium [Moles/Vol] 138 mmol/L 136 - 145 mmol/L [facility] Urea nitrogen [Mass/Vol] 15 mg/dL 9 - 23 mg/d L [facility] Blood type and Crossmatch pa freida (Bld)on 01-25-2025 ABO group Nom (Bld) O [facility] Blood group antibody screen GEL Ql Negative [facility] D Ag Ql (RBC) Negative [facility] CBC (HEMOGRAM)on 01-25-2025 Erythrocyte distribution width (RBC) [Ratio] 19.2 % High 11.5-15.0 [facility] Comment on above: Performed By: #### L AB294 ####Blow Pit Operator: DOMENICA JARA ([phone])[facility])[address] [place] [address] Hematocrit (Bld) [Volume fraction] 22.5 % Low 40.0-52.0 [facility] Comment on above: Performed By: #### L AB294 ####Blow Pit Operator: DOMENICA JARA ([phone])[address] Hemoglobin (Bld) [Mass/Vol] 7.0 g/dL Low 13.0-18.0 [facility] Comment on above: Performed By: #### L AB294 ####Blow Pit Operator: DOMENICA JARA ([phone])[facility])[address] [place] [address] MCH (RBC) [Entitic mass] 27.6 pg Normal 26.0-34.0 [facility] Comment on above: Performed By: #### L AB294 ####Blow Pit Operator: DOMENICA JARA ([phone])[address] MCHC 31.1 % Normal 30.5-36.0 [facility] Comment on above: Performed By: #### L AB294 ####Blow Pit Operator: DOMENICA JARA ([id number])[address] MCV (RBC) [Entitic vol] 88.6 fL Normal 77.0-99.0 [facility] Comment on above: Performed By: #### L AB294 ####Blow Pit Operator: DOMENICA JARA ([phone])[facility] ([facility])[address] [place] [address] Platelet mean volume (Bld) [Entitic vol] 8.8 fL Low 9.0-12.7 [facility] Comment on above: Performed By: #### L AB294 ####Blow Pit Operator: DOMENICA JARA ([phone])[facility] ([facility])[address] [place] [address] Platelets (Bld) [#/Vol] 285 10*3/uL Normal 140-440 [facility] Comment on above: Performed By: #### L AB294 ####Blow Pit Operator: DOMENICA JARA ([phone])[facility] ([facility])[address] [place] [address] RBC (Bld) [#/Vol] 2.54 10*6/uL Low 4.40-5.90 [facility] Comment on above: Performed By: #### L AB294 ####Blow Pit Operator: DOMENICA JARA ([phone])[facility] ([facility])[address] [place] [address] WBC (Bld) [#/Vol] 10.2 10*3/uL Normal 3.6-10.7 [facility] Comment on above: Performed By: #### L AB294 ####Blow Pit Operator: DOMENICA JARA ([phone])[facility] ([facility])[address] [place] [address] CBC panel Auto (Bld)on 01-25 Erythrocyte distribution width (RBC) [Ratio] 19.2 % High 11.5 - 15.0 % [facility] Hematocrit (Bld) [Volume fraction] 22.5 % Low 40.0 - 52.0 % [facility] Hemoglobin (Bld) [Mass/Vol] 7 g/dL Low 13.0 - 18.0 g/dL [facility] Interpretation and review of laboratory results Abnormal [facility] MCH (RBC) [Entitic mass] 27.6 pg 26. 0 - 34.0 pg [facility] MCHC (RBC) [Mass/Vol] 31.1 % 30.5 - 36.0 % [facility] MCV (RBC) [Entitic vol] 88.6 fL 77.0 - 99.0 fL [facility] Platelet mean volume (Bld) [Entitic vol] 8.8 fL Low 9.0 - 12.7 fL [facility] Platelets (Bld) [#/Vol] 285 10*3/uL 140 - 440 10*3/uL [facility] RBC (Bld) [#/Vol] 2.54 10*6/uL Low 4.40 - 5.9 0 10*6/uL [facility] WBC (Bld) [#/Vol] 10.2 10*3/uL 3.6 - 10.7 10*3/uL [facility] [place] MODIFIED BARIUM WITH VIDE O AND SPEECHon 01-25-2025 [place] MODIFIED BARIUM WITH VIDEO AND SPEECH Normal [facility] HEMOGLOBIN AND HEMATOCRIT, B LOODon 01-25-2025 Hematocrit (Bld) [Volume fraction] 23.8 % Low 40.0-52.0 [facility] Comment on above: Performed By: #### L AB753 ####Blow Pit Operator: DOMENICA JARA ([phone])[address] Hemoglobin (Bld) [Mass/Vol] 7.6 g/dL Low 13.0-18.0 [facility] Comment on above: Performed By: #### L AB753 ####Blow Pit Operator: DOMENICA JARA ([phone])[facility])[address] [place] [address] Hematocrit (Bld) [Volume fraction] 24.4 % Low 40.0-52.0 [facility] Comment on above: Performed By: #### L AB753 ####Blow Pit Operator: DOMENICA JARA ([phone])[facility])[address] [place] [address] Hemoglobin (Bld) [Mass/Vol] 7.7 g/dL Low 13.0-18.0 [facility] Comment on above: Performed By: #### L AB753 ####Blow Pit Operator: DOMENICA JARA ([phone])[facility])[address] [place] [address] Hematocrit (Bld) [Volume fraction] 24.6 % Low 40.0-52.0 [facility] Comment on above: Performed By: #### L AB753 ####Blow Pit Operator: DOMENICA JARA ([phone])[facility])[address] [place] [address] Hemoglobin (Bld) [Mass/Vol] 8.0 g/dL Low 13.0-18.0 [facility] Comment on above: Performed By: #### L AB753 ####Blow Pit Operator: DOMENICA JARA ([phone])[facility])[address] [place] [address] Hemoglobin (Bld) [Mass/Vol]o n 01-25-2025 Hematocrit (Bld) [Volume fraction] 23.8 % Low 40.0 - 52.0 % [facility] Interpretation and review of laboratory results Abnormal [facility] Hematocrit (Bld) [Volume fraction] 24.4 % Low 40.0 - 52.0 % [facility] Interpretation and review of laboratory results Abnormal [facility] Hematocrit (Bld) [Volume fraction] 24.6 % Low 40.0 - 52.0 % [facility] Interpretation and review of laboratory results Abnormal [facility] Hematocrit (Bld) [Volume fraction] 20.4 % Low 40.0 - 52.0 % [facility] Interpretation and review of laboratory results Abnormal [facility] Laboratory - Chemistry and C hemistry - challengeon 01-25-2025 Magnesium [Mass/Vol] 2.1 mg/dL 1.6 - 2 .6 mg/dL [facility] Laboratory - Coagulationon 0 01-25-2025 PT Coag (Bld) [Time] 17.4 s High 9.0 - 12.0 s [facility] PT Coag (Bld) [Time] 15.9 s High 9.0 - 12.0 s [facility] Laboratory - Hematology and Cell countson 01-25-2025 Hemoglobin (Bld) [Mass/Vol] 7.6 g/dL Low 13.0 - 18.0 g/dL [facility] Hemoglobin (Bld) [Mass/Vol] 7.7 g/dL Low 13.0 - 18.0 g/dL [facility] Hemoglobin (Bld) [Mass/Vol] 8 g/dL Low 13.0 - 18.0 g/dL [facility] Hemoglobin (Bld) [Mass/Vol] 6.3 g/dL Critically low 13.0 - 18.0 g/dL [facility] Laboratory - Microbiology an d Antimicrobial susceptibilityon 01-25-2025 A. baumannii DNA EMMANUEL+probe Ql (Unsp spec) Not detected Not Detected [facility] Laboratory - Microbiology an d Antimicrobial susceptibilityOrdered By: Petra Harris on 01-25-2025 C. auris ITS2 gene EMMANUEL+probe Ql (Unsp spec) Not detected Not Detected [facility] MAGNESIUMon 01-25-2025 Magnesium [Mass/Vol] 2.1 mg/dL Normal 1.6-2.6 [facility] Comment on above: Result Comment: ARPAN Kaplan COMMENTS:Higher values can be expected in females during menses. Performed By: #### L AB103, LAB15, [id number] ####Blow Pit Operator: DOMENICA JARA ([phone])[address] Magnesium [Mass/Vol]on 01-25 [facility] No Panel Informationon 01-25 Interpretation and review of laboratory results Normal [facility] Blood Expiration Date [id number] [facility] Crossmatch interpretation COMP [facility] Dispense Status Transfused [facility] Product Blood Type 9500 [facility] PRODUCT CODE [id number] [facility] Unit ABO O [facility] Unit Number [id number] [facility] RH Negative [facility] Unit Volume 300 mL [facility] Interpretation and review of laboratory results Normal [facility] No Panel InformationOrdered By: Petra Harris on 01-25-2025 Interpretation and review of laboratory results Normal [facility] PHOSPHORUSon 01-25-2025 Phosphate [Mass/Vol] 3.9 mg/dL Normal 2.3-4.7 [facility] Comment on above: Performed By: #### L AB103, LAB15, [id number] ####Blow Pit Operator: DOMENICA JARA ([phone])[address] PROTHROMBIN TIMEon INR Coag (PPP) [Relative time] 1.7 {INR} High 0.9-1.1 [facility] Comment on above: Result Comment: Vaughn [...] Myocardial Infarction Performed By: #### Tameka AB325, [id number] ####Blow Pit Operator: DOMENICA JARA ([phone])[facility])[address] [place] [address] PT Coag (PPP) [Time] 17.4 s High 9.0-12.0 [facility] Comment on above: Performed By: #### Tameka AB325, [id number] ####Blow Pit Operator: DOMENICA JARA ([phone])[address] PT Coag (Bld) [Time]on 01-25 INR Coag (PPP) [Relative time] 1.7 {INR} High 0.9 - 1.1 [facility] Interpretation and review of laboratory results Abnormal [facility] INR Coag (PPP) [Relative time] 1.5 {INR} High 0.9 - 1.1 [facility] Interpretation and review of laboratory results Abnormal [facility] Phosphate [Moles/Vol]on Phosphate [Mass/Vol] 3.9 mg/dL 2.3 - 4 .7 mg/dL [facility] Progress Noteon 01-25-2025 Progress Note Normal [facility] Progress Note Normal [facility] Progress [facility] Normal [facility] Progress Note Normal [facility] Progress Note Normal [facility] Progress Note Normal [facility] Progress Note Normal [facility] RF videography Hypopharynx a nd Esophagus Views for swallowing function W speech and W barium contrast [place] 01-25-2025 [facility] RAD[facility] Radiology Study observation (narrative) [facility] meredith RF videography Hypopharynx a nd Esophagus Views for swallowing function W speech and W barium contrast POOrdered By: Sulaiman Harp on 01-25-2025 [facility] Work Phone: aPTT Coag (Bld) [Time]on aPTT Coag (PPP) [Time] s Critically high 20.0 - 3 0.5 s [facility] Interpretation and review of laboratory results Abnormal [facility] aPTT Coag (PPP) [Time] 83.1 s High 20.0 - 30.5 s [facility] Interpretation and review of laboratory results Abnormal [facility] aPTT Coag (PPP) [Time] 47.3 s High 20.0 - 30.5 s [facility] Interpretation and review of laboratory results Abnormal [facility] 30on 01-24-2025 30 Normal [facility] 30 Normal [facility] [id number] 01-24-2025 [id number] Normal [facility] APTTon 01-24-2025 aPTT Coag (Bld) [Time] 47.3 s High 20.0-30.5 [facility] Comment on above: Result Comment: ARPAN Kaplan COMMENTS:NOTE: The therapeutic time for Heparin anticoagulation, based on Xa activity inhibition, is an APTT of 46-80 seconds. Performed By: #### L AB325 ####Blow Pit Operator: DOMENICA JARA ([phone])[facility] ([address] aPTT Coag (Bld) [Time] 33.7 s High 20.0-30.5 [facility] Comment on above: Result Comment: ARPAN Kaplan COMMENTS:NOTE: The therapeutic time for Heparin anticoagulation, based on Xa activity inhibition, is an APTT of 46-80 seconds. Performed By: #### L AB320, [id number] ####Blow Pit Operator: DOMENICA JARA ([phone])[facility] ([facility] [place] [address] BASIC METABOLIC PANELon 04-3 Anion gap [Moles/Vol] 12 mmol/L Normal 3-13 [facility] Comment on above: Performed By: #### L AB15 ####Blow Pit Operator: DOMENICA JARA ([phone])[facility] ([facility])[address] [place] [address] Calcium [Mass/Vol] 9.3 mg/dL Normal 8.4-10.2 [facility] Comment on above: Performed By: #### L AB15 ####Blow Pit Operator: DOMENICA JARA ([phone])[facility] ([facility])[address] [place] [address] Chloride [Moles/Vol] 100 mmol/L Normal 98-107 [facility] Comment on above: Performed By: #### L AB15 ####Blow Pit Operator: DOMENICA JARA ([phone])[facility] ([facility])[address] [place] [address] CO2 [Moles/Vol] 26 mmol/L Normal 22-29 [facility] Comment on above: Performed By: #### L AB15 ####Blow Pit Operator: DOMENICA JARA ([phone])[facility] ([facility])[address] [place] [address] Creatinine [Mass/Vol] 1.47 mg/dL High 0.72-1.25 [facility] Comment on above: Performed By: #### L AB15 ####Blow Pit Operator: DOMENICA JARA ([phone])[facility] ([facility])[address] [place] [address] GLOMERULAR FILTRATION RATE ML/MIN/1.73 SQ M.PREDICTED 54.6 mL/min/1.73m*2 Low >60.0 [facility] Comment on above: Result Comment: Calc ulation based on the Chronic Kidney Disease Epidemiology Collaboration (CKD-EPI) equation refit without adjustment for race Performed By: #### L AB15 ####Blow Pit Operator: DOMENICA JARA ([phone])[facility] ([facility])[address] [place] [address] Glucose [Mass/Vol] 77 mg/dL Normal 74-100 [facility] Comment on above: Performed By: #### L AB15 ####Blow Pit Operator: DOMENICA JARA ([phone])[facility])[address] [place] [address] Potassium [Moles/Vol] 3.5 mmol/L Normal 3.5-5.1 [facility] Comment on above: Result Comment: [facility] potassium values may be up to 0.5 mmol/L lower than serum values. Performed By: #### L AB15 ####Blow Pit Operator: DOMENICA JARA ([phone])[facility] ([facility])[address] [place] [address] [place] Sodium [Moles/Vol] 138 mmol/L Normal 136-145 [facility] Comment on above: Performed By: #### L AB15 ####Blow Pit Operator: DOMENICA JARA ([phone])[facility])[address] [place] [address] [place] Urea nitrogen [Mass/Vol] 9 mg/dL Normal 9-23 [facility] Comment on above: Performed By: #### L AB15 ####Blow Pit Operator: DOMENICA JARA ([phone])[facility])[address] [place] [address] [place] Anion gap [Moles/Vol] 20 mmol/L High 3-13 [facility] Comment on above: Performed By: #### L [id number], GSH741, LAB15, GNV282 ####Blow Pit Operator: DOMENICA JARA ([phone])[facility])[address] [place] [address] [place] Calcium [Mass/Vol] 10.2 mg/dL Normal 8.4-10.2 [facility] Comment on above: Performed By: #### L [id number], IPN751, LAB15, [id number] ####Blow Pit Operator: DOMENICA JARA ([phone])[facility] ([facility])[address] [place] [address] Chloride [Moles/Vol] 98 mmol/L Normal 98-107 [facility] Comment on above: Performed By: #### L [id number], NYZ439, LAB15, [id number] ####Blow Pit Operator: DOMENICA JARA ([phone])[facility] ([facility])[address] [place] [address] CO2 [Moles/Vol] 21 mmol/L Low 22-29 [facility] Comment on above: Performed By: #### L [id number], YGU538, LAB15, SXX800 ####Blow Pit Operator: DOMENICA JARA ([phone])[facility])[address] [place] [address] Creatinine [Mass/Vol] 3.62 mg/dL High 0.72-1.25 [facility] Comment on above: Performed By: #### L [id number], HKZ518, LAB15, ATF001 ####Blow Pit Operator: DOMENICA JARA ([phone])[facility])[address] [place] [address] GLOMERULAR FILTRATION RATE ML/MIN/1.73 SQ M.PREDICTED 18.5 mL/min/1.73m*2 Low >60.0 [facility] Comment on above: Result Comment: Calc ulation based on the Chronic Kidney Disease Epidemiology Collaboration (CKD-EPI) equation refit without adjustment for race Performed By: #### L [id number], OBR335, LAB15, IGM973 ####Blow Pit Operator: DOMENICA JARA ([phone])[facility])[address] [place] [address] Glucose [Mass/Vol] 74 mg/dL Normal 74-100 [facility] Comment on above: Performed By: #### L [id number], XRH769, LAB15, VGV829 ####Blow Pit Operator: DOMENICA JARA ([phone])[facility])[address] [place] [address] Potassium [Moles/Vol] 4.0 mmol/L Normal 3.5-5.1 [facility] Comment on above: Result Comment: [facility] potassium values may be up to 0.5 mmol/L lower than serum values. Performed By: #### L OQ0715, IOE451, LAB15, TNE861 ####Blow Pit Operator: DOMENICA JARA ([phone])[facility] ([facility])[address] [place] [address] Sodium [Moles/Vol] 139 mmol/L Normal 136-145 [facility] Comment on above: Performed By: #### L [id number], PFV470, LAB15, JPY758 ####Blow Pit Operator: DOMENICA JARA ([phone])[address] Urea nitrogen [Mass/Vol] 27 mg/dL High 9-23 [facility] Comment on above: Performed By: #### L [id number], HPY863, LAB15, CLM942 ####Blow Pit Operator: DOMENICA JARA ([phone])[facility])[address] [place] [address] BETA HYDROXYBUTYRATEon 01-24 BETA HYDROXYBUTYRATE 10.5 mg/dL High <=2.8 [facility] Comment on above: Performed By: #### L [id number], LUS084, LAB15, BNF041 ####Blow Pit Operator: DOMENICA JARA ([phone])[facility])[address] [place] [address] Basic metabolic 1998 panelon 01-24-2025 Anion gap [Moles/Vol] 12 mmol/L 3 - 13 mmol/L [facility] Calcium [Mass/Vol] 9.3 mg/dL 8.4 - 10. 2 mg/dL [facility] Chloride [Moles/Vol] 100 mmol/L 98 - 10 7 mmol/L [facility] CO2 [Moles/Vol] 26 mmol/L 22 - 29 mmol/L [facility] Creatinine [Mass/Vol] 1.47 mg/dL High 0.72 - 1.25 mg/dL [facility] GFR/1.73 sq M.predicted (S/P/Bld) [Vol rate/Area] 54.6 mL/min Low - PINF [facility] Glucose [Mass/Vol] 77 mg/dL 74 - 100 mg/dL [facility] Interpretation and review of laboratory results Abnormal [facility] Potassium [Moles/Vol] 3.5 mmol/L 3.5 - 5.1 mmol/L [facility] Sodium [Moles/Vol] 138 mmol/L 136 - 145 mmol/L [facility] Urea nitrogen [Mass/Vol] 9 mg/dL 9 - 23 mg/d L [facility] Anion gap [Moles/Vol] 20 mmol/L High 3 - 13 mmol/L [facility] Calcium [Mass/Vol] 10.2 mg/dL 8.4 - 10. 2 mg/dL [facility] Chloride [Moles/Vol] 98 mmol/L 98 - 10 7 mmol/L [facility] CO2 [Moles/Vol] 21 mmol/L Low 22 - 29 mmol/L [facility] Creatinine [Mass/Vol] 3.62 mg/dL High 0.72 - 1.25 mg/dL [facility] GFR/1.73 sq M.predicted (S/P/Bld) [Vol rate/Area] 18.5 mL/min Low - PINF [facility] Glucose [Mass/Vol] 74 mg/dL 74 - 100 mg/dL [facility] Potassium [Moles/Vol] 4 mmol/L 3.5 - 5.1 mmol/L [facility] Sodium [Moles/Vol] 139 mmol/L 136 - 145 mmol/L [facility] Urea nitrogen [Mass/Vol] 27 mg/dL High 9 - 23 mg/d L [facility] CBC (HEMOGRAM)on 01-24-2025 Erythrocyte distribution width (RBC) [Ratio] 19.4 % High 11.5-15.0 [facility] Comment on above: Performed By: #### L [id number] ####Blow Pit Operator: DOMENICA JARA ([phone])[facility] ([address] Hematocrit (Bld) [Volume fraction] 27.0 % Low 40.0-52.0 [facility] Comment on above: Performed By: #### L AB294 ####Blow Pit Operator: DOMENICA JARA ([phone])[facility])[address] [place] [address] Hemoglobin (Bld) [Mass/Vol] 8.0 g/dL Low 13.0-18.0 [facility] Comment on above: Performed By: #### L AB294 ####Blow Pit Operator: DOMENICA JARA ([id number])[facility] ([facility])[address] [place] [address] MCH (RBC) [Entitic mass] 27.9 pg Normal 26.0-34.0 [facility] Comment on above: Performed By: #### L AB294 ####Blow Pit Operator: DOMENICA JARA ([phone])[facility])[address] [place] [address] MCHC 29.6 % Low 30.5-36.0 [facility] Comment on above: Performed By: #### L AB294 ####Blow Pit Operator: DOMENICA JARA ([phone])[facility] ([facility])[address] [place] [address] MCV (RBC) [Entitic vol] 94.1 fL Normal 77.0-99.0 [facility] Comment on above: Performed By: #### L AB294 ####Blow Pit Operator: DOMENICA JARA ([phone])[facility])[address] [place] [address] Platelet mean volume (Bld) [Entitic vol] 9.2 fL Normal 9.0-12.7 [facility] Comment on above: Performed By: #### L AB294 ####Blow Pit Operator: DOMENICA JARA ([phone])[facility])[address] [place] [address] Platelets (Bld) [#/Vol] 355 10*3/uL Normal 140-440 [facility] Comment on above: Performed By: #### L AB294 ####Blow Pit Operator: DOMENICA JARA ([phone])[facility] ([facility])[address] [place] [address] RBC (Bld) [#/Vol] 2.87 10*6/uL Low 4.40-5.90 [facility] Comment on above: Performed By: #### L AB294 ####Blow Pit Operator: DOMENICA JARA ([id number])[facility])[address] [place] [address] WBC (Bld) [#/Vol] 11.5 10*3/uL High 3.6-10.7 [facility] Comment on above: Performed By: #### L AB294 ####Blow Pit Operator: DOMENICA JARA ([phone])[facility] ([facility])[address] [place] [address] CBC panel Auto (Bld)Ordered By: Liseth Granado on 01-24-2025 Erythrocyte distribution width (RBC) [Ratio] 19.4 % High 11.5 - 15.0 % [facility] Hematocrit (Bld) [Volume fraction] 27 % Low 40.0 - 52.0 % [facility] Hemoglobin (Bld) [Mass/Vol] 8 g/dL Low 13.0 - 18.0 g/dL [facility] Interpretation and review of laboratory results Abnormal [facility] MCH (RBC) [Entitic mass] 27.9 pg 26. 0 - 34.0 pg [facility] MCHC (RBC) [Mass/Vol] 29.6 % Low 30.5 - 36.0 % [facility] MCV (RBC) [Entitic vol] 94.1 fL 77.0 - 99.0 fL [facility] Platelet mean volume (Bld) [Entitic vol] 9.2 fL 9.0 - 12.7 fL [facility] Platelets (Bld) [#/Vol] 355 10*3/uL 140 - 440 10*3/uL [facility] RBC (Bld) [#/Vol] 2.87 10*6/uL Low 4.40 - 5.9 0 10*6/uL [facility] WBC (Bld) [#/Vol] 11.5 10*3/uL High 3.6 - 10.7 10*3/uL [facility] HEMOGLOBIN AND HEMATOCRIT, B LOODon 01-24-2025 Hematocrit (Bld) [Volume fraction] 20.4 % Low 40.0-52.0 [facility] Comment on above: Performed By: #### L AB753 ####Blow Pit Operator: DOMENICA JARA ([phone])[facility])[address] [place] [address] Hemoglobin (Bld) [Mass/Vol] 6.3 g/dL Critically low 13.0-18.0 [facility] Comment on above: Performed By: #### L AB753 ####Blow Pit Operator: DOMENICA JARA ([phone])[facility])[address] [place] [address] Hematocrit (Bld) [Volume fraction] 23.0 % Low 40.0-52.0 [facility] Comment on above: Performed By: #### L AB753 ####Blow Pit Operator: DOMENICA JARA ([phone])[facility] ([facility])[address] [place] [address] Hemoglobin (Bld) [Mass/Vol] 7.3 g/dL Low 13.0-18.0 [facility] Comment on above: Performed By: #### L AB753 ####Blow Pit Operator: DOMENICA JARA ([phone])[facility])[address] [place] [address] Hemoglobin (Bld) [Mass/Vol]o n 01-24-2025 Hematocrit (Bld) [Volume fraction] 23 % Low 40.0 - 52.0 % [facility] Interpretation and review of laboratory results Abnormal [facility] LACTIC ACID WITH REFLEXon Lactate [Moles/Vol] 0.9 mmol/L Normal 0.5-2.2 [facility] Comment on above: Performed By: #### L [id number] ####Blow Pit Operator: DOMENICA JARA ([phone])[facility])[address] [place] [address] Laboratory - Chemistry and C hemistry - challengeon 01-24-2025 Lactate [Moles/Vol] 0.9 mmol/L 0.5 - 2. 2 mmol/L [facility] Laboratory - Chemistry and C hemistry - challengeOrdered By: Farhat Simons on 01-24-2025 Beta hydroxybutyrate [Mass/Vol] 10.5 mg/dL High NINF - 2.8 mg/dL [facility] Laboratory - Chemistry and C hemistry - challengeOrdered By: Victorino Graham on 01-24-2025 Magnesium [Mass/Vol] 2.3 mg/dL 1.6 - 2 .6 mg/dL [facility] Laboratory - Coagulationon 0 01-24-2025 PT Coag (Bld) [Time] 15.1 s High 9.0 - 12.0 s [facility] PT Coag (Bld) [Time] 15.6 s High 9.0 - 12.0 s [facility] Laboratory - Hematology and Cell countson 01-24-2025 Hemoglobin (Bld) [Mass/Vol] 7.3 g/dL Low 13.0 - 18.0 g/dL [facility] MAGNESIUMon 01-24-2025 Magnesium [Mass/Vol] 2.3 mg/dL Normal 1.6-2.6 [facility] Comment on above: Result Comment: ARPAN Kaplan COMMENTS:Higher values can be expected in females during menses. Performed By: #### L [id number], DOQ760, LAB15, FYT066 ####Blow Pit Operator: DOMENICA JARA ([phone])[address] Magnesium [Mass/Vol]Ordered By: Victorino Graham on 01-24-2025 Interpretation and review of laboratory results Normal [facility] No Panel Informationon 01-24 Interpretation and review of laboratory results Abnormal [facility] Interpretation and review of laboratory results Normal [facility] Interpretation and review of laboratory results Abnormal [facility] Blood Expiration Date S [facility] Crossmatch interpretation COMP [facility] Dispense Status Released from [employer]Op[employer] [facility] Product Blood Type 9500 [facility] PRODUCT CODE [id number] [facility] Unit ABO O [facility] Unit Number [id number] [facility] RH Negative [facility] Unit Volume 300 mL [facility] No Panel InformationOrdered By: Farhat Simons on 01-24-2025 Interpretation and review of laboratory results Abnormal [facility] No Panel InformationOrdered By: Victorino Graham on 01-24-2025 [facility] Nursing Noteon 01-24-2025 Nursing Note Normal [facility] Op Noteon 01-24-2025 Op Note Normal [facility] PHOSPHORUSon 01-24-2025 Phosphate [Mass/Vol] 5.1 mg/dL High 2.3-4.7 [facility] Comment on above: Performed By: #### L [id number], AJN398, LAB15, KHM555 ####Blow Pit Operator: DOMENICA JARA ([phone])[address] PROTHROMBIN TIMEon INR Coag (PPP) [Relative time] 1.5 {INR} High 0.9-1.1 [facility] Comment on above: Result Comment: Vaughn [...] Myocardial Infarction Performed By: #### L AB320 ####Blow Pit Operator: DOMENICA JARA ([phone])[facility])[address] [place] [address] PT Coag (PPP) [Time] 15.9 s High 9.0-12.0 [facility] Comment on above: Performed By: #### L AB320 ####Blow Pit Operator: DOMENICA JARA ([phone])[facility])[address] [place] [address] INR Coag (PPP) [Relative time] 1.5 {INR} High 0.9-1.1 [facility] Comment on above: Result Comment: Vaughn [...] Myocardial Infarction Performed By: #### L AB320, UYC566 ####Blow Pit Operator: DOMENICA JARA ([phone])[address] PT Coag (PPP) [Time] 15.1 s High 9.0-12.0 [facility] Comment on above: Performed By: #### L AB320, QDJ107 ####Blow Pit Operator: DOMENICA JARA ([phone])[address] INR Coag (PPP) [Relative time] 1.5 {INR} High 0.9-1.1 [facility] Comment on above: Result Comment: Vaughn [...] Myocardial Infarction Performed By: #### L AB320 ####Blow Pit Operator: DOMENICA [id number])[place] [address] [place] PT Coag (PPP) [Time] 15.6 s High 9.0-12.0 [facility] Comment on above: Performed By: #### L AB320 ####Blow Pit Operator: DOMENICA [phone])[address] [place] [address] [place] PT Coag (Bld) [Time]on 01-24 INR Coag (PPP) [Relative time] 1.5 {INR} High 0.9 - 1.1 [facility] INR Coag (PPP) [Relative time] 1.5 {INR} High 0.9 - 1.1 [facility] Interpretation and review of laboratory results Abnormal [facility] Phosphate [Moles/Vol]on 12-28 Phosphate [Mass/Vol] 5.1 mg/dL High 2.3 - 4 .7 mg/dL [facility] Progress Noteon 01-24-2025 Progress Note [facility] Progress Note Normal [facility] Normal [facility] Progress Note Normal [facility] Progress Note Normal [facility] XR CHEST 1 VIEWon 01-24-2025 XR CHEST 1 VIEW Normal [facility] XR Chest Single viewon 01-24 [facility] Radiology Study observation (narrative) [facility] aPTT Coag (Bld) [Time]on aPTT Coag (PPP) [Time] 33.7 s High 20.0 - 30.5 s [facility] aPTT Coag (Bld) [Time]Ordere d By: Callie Steele on 01-24-2025 aPTT Coag (PPP) [Time] 114.7 s High 20.0 - 30.5 s [facility] Interpretation and review of laboratory results Abnormal [facility] 30on 01-23-2025 30 Normal [facility] APTTon 01-23-2025 aPTT Coag (Bld) [Time] 114.7 s High 20.0-30.5 [facility] Comment on above: Result Comment: ARPAN Kaplan COMMENTS:NOTE: The therapeutic time for Heparin anticoagulation, based on Xa activity inhibition, is an APTT of 46-80 seconds. Performed By: #### L AB325 ####Blow Pit Operator: DOMENICA JARA ([phone])[facility] ([facility])[address] [place] [address] BASIC METABOLIC PANELon 04-2 Anion gap [Moles/Vol] 13 mmol/L Normal 3-13 [facility] Comment on above: Performed By: #### L AB15, QET506, VNX722 ####Blow Pit Operator: DOMENICA JARA ([phone])[facility] ([facility])[address] [place] [address] Calcium [Mass/Vol] 9.4 mg/dL Normal 8.4-10.2 [facility] Comment on above: Performed By: #### L AB15, WAD287, GQI064 ####Blow Pit Operator: DOMENICA JARA ([phone])[facility] ([facility])[address] [place] [address] Chloride [Moles/Vol] 102 mmol/L Normal 98-107 [facility] Comment on above: Performed By: #### L AB15, OXH711, EXO239 ####Blow Pit Operator: DOMENICA JARA ([id number])[facility] ([facility])[address] [place] [address] CO2 [Moles/Vol] 25 mmol/L Normal 22-29 [facility] Comment on above: Performed By: #### L AB15, LMZ646, NBH534 ####Blow Pit Operator: DOMENICA JARA ([phone])[facility] ([facility])[address] [place] [address] Creatinine [Mass/Vol] 2.34 mg/dL High 0.72-1.25 [facility] Comment on above: Performed By: #### L AB15, HRZ734, LAI163 ####Blow Pit Operator: DOMENICA JARA ([phone])[facility] ([facility])[address] [place] [address] [place] GLOMERULAR FILTRATION RATE ML/MIN/1.73 SQ M.PREDICTED 31.3 mL/min/1.73m*2 Low >60.0 [facility] Comment on above: Result Comment: Calc ulation based on the Chronic Kidney Disease Epidemiology Collaboration (CKD-EPI) equation refit without adjustment for race Performed By: #### L AB15, VKD156, SYS901 ####Blow Pit Operator: DOMENICA JARA ([phone])[facility] ([facility])[address] [place] [address] Glucose [Mass/Vol] 80 mg/dL Normal 74-100 [facility] Comment on above: Performed By: #### L AB15, GEU640, CWS951 ####Blow Pit Operator: DOMENICA JARA ([phone])[facility] ([facility])[address] [place] [address] Potassium [Moles/Vol] 3.4 mmol/L Low 3.5-5.1 [facility] Comment on above: Result Comment: [facility] potassium values may be up to 0.5 mmol/L lower than serum values. Performed By: #### L AB15, PSB926, THQ524 ####Blow Pit Operator: DOMENICA JARA ([phone])[facility] ([facility])[address] [place] [address] Sodium [Moles/Vol] 140 mmol/L Normal 136-145 [facility] Comment on above: Performed By: #### L AB15, DLP681, WMG125 ####Blow Pit Operator: DOMENICA JARA ([phone])[facility] ([facility])[address] [place] [address] Urea nitrogen [Mass/Vol] 22 mg/dL Normal 9-23 [facility] Comment on above: Performed By: #### L AB15, EGX667, AXC824 ####Blow Pit Operator: DOMENICA JARA ([phone])[facility])[address] [place] [address] Basic metabolic 1998 panelon 01-23-2025 Anion gap [Moles/Vol] 13 mmol/L 3 - 13 mmol/L [facility] Calcium [Mass/Vol] 9.4 mg/dL 8.4 - 10. 2 mg/dL [facility] Chloride [Moles/Vol] 102 mmol/L 98 - 10 7 mmol/L [facility] CO2 [Moles/Vol] 25 mmol/L 22 - 29 mmol/L [facility] Creatinine [Mass/Vol] 2.34 mg/dL High 0.72 - 1.25 mg/dL [facility] GFR/1.73 sq M.predicted (S/P/Bld) [Vol rate/Area] 31.3 mL/min Low - PINF [facility] Glucose [Mass/Vol] 80 mg/dL 74 - 100 mg/dL [facility] Interpretation and review of laboratory results Abnormal [facility] Potassium [Moles/Vol] 3.4 mmol/L Low 3.5 - 5.1 mmol/L [facility] Sodium [Moles/Vol] 140 mmol/L 136 - 145 mmol/L [facility] Urea nitrogen [Mass/Vol] 22 mg/dL 9 - 23 mg/d L [facility] CBC W Auto Differential pane l (Bld)on 01-23-2025 Basophils (Bld) [#/Vol] 0.1 10*3/uL 0.0 - 0.2 10*3/uL [facility] Basophils/100 WBC (Bld) 1 % 0.0 - 2.0 % [facility] Eosinophils (Bld) [#/Vol] 0.7 10*3/uL High 0.0 - 0.5 10*3/uL [facility] Eosinophils/100 WBC (Bld) 6.8 % High 0.0 - 6.0 % [facility] Erythrocyte distribution width (RBC) [Ratio] 18.8 % High 11.5 - 15.0 % [facility] Hematocrit (Bld) [Volume fraction] 25.3 % Low 40.0 - 52.0 % [facility] Hemoglobin (Bld) [Mass/Vol] 7.9 g/dL Low 13.0 - 18.0 g/dL [facility] Immature granulocytes (Bld) [#/Vol] 0.1 10*3/uL High NINF - 0.1 10*3/uL [facility] Immature granulocytes/100 WBC (Bld) 1.1 % 0.0 - 2.0 % [facility] Interpretation and review of laboratory results Abnormal [facility] Lymphocytes (Bld) [#/Vol] 1.5 10*3/uL 1.0 - 4.3 10*3/uL [facility] Lymphocytes/100 WBC (Bld) 13.7 % Low 15.0 - 45.0 % [facility] MCH (RBC) [Entitic mass] 27.9 pg 26. 0 - 34.0 pg [facility] MCHC (RBC) [Mass/Vol] 31.2 % 30.5 - 36.0 % [facility] MCV (RBC) [Entitic vol] 89.4 fL 77.0 - 99.0 fL [facility] Monocytes (Bld) [#/Vol] 1.5 10*3/uL High 0.0 - 0.9 10*3/uL [facility] Monocytes/100 WBC (Bld) 13.7 % High 5.0 - 13.0 % [facility] Neutrophils (Bld) [#/Vol] 7 10*3/uL 1.8 - 7.5 10*3/uL [facility] Neutrophils/100 WBC (Bld) 63.7 % 38.0 - 82.0 % [facility] Nucleated RBC/100 WBC (Bld) [Ratio] 0 % [facility] Platelet mean volume (Bld) [Entitic vol] 9.4 fL 9.0 - 12.7 fL [facility] Platelets (Bld) [#/Vol] 346 10*3/uL 140 - 440 10*3/uL [facility] RBC (Bld) [#/Vol] 2.83 10*6/uL Low 4.40 - 5.9 0 10*6/uL [facility] WBC (Bld) [#/Vol] 10.9 10*3/uL High 3.6 - 10.7 10*3/uL [facility] Basophils (Bld) [#/Vol] 0.1 10*3/uL 0.0 - 0.2 10*3/uL [facility] Basophils/100 WBC (Bld) 1.1 % 0.0 - 2.0 % [facility] Eosinophils (Bld) [#/Vol] 0.9 10*3/uL High 0.0 - 0.5 10*3/uL [facility] Eosinophils/100 WBC (Bld) 8 % High 0.0 - 6.0 % [facility] Erythrocyte distribution width (RBC) [Ratio] 18.5 % High 11.5 - 15.0 % [facility] Hematocrit (Bld) [Volume fraction] 23.4 % Low 40.0 - 52.0 % [facility] Hemoglobin (Bld) [Mass/Vol] 7.3 g/dL Low 13.0 - 18.0 g/dL [facility] Immature granulocytes (Bld) [#/Vol] 0.1 10*3/uL High NINF - 0.1 10*3/uL [facility] [employer] Immature granulocytes/100 WBC (Bld) 1.1 % 0.0 - 2.0 % [facility] Interpretation and review of laboratory results Abnormal [facility] Lymphocytes (Bld) [#/Vol] 1.4 10*3/uL 1.0 - 4.3 10*3/uL [facility] Lymphocytes/100 WBC (Bld) 12.2 % Low 15.0 - 45.0 % [facility] MCH (RBC) [Entitic mass] 27.7 pg 26. 0 - 34.0 pg [facility] MCHC (RBC) [Mass/Vol] 31.2 % 30.5 - 36.0 % [facility] [facility] MCV (RBC) [Entitic vol] 88.6 fL 77.0 - 99.0 fL [facility] Monocytes (Bld) [#/Vol] 1.4 10*3/uL High 0.0 - 0.9 10*3/uL [facility] Monocytes/100 WBC (Bld) 12.9 % 5.0 - 13.0 % [facility] Neutrophils (Bld) [#/Vol] 7.2 10*3/uL 1.8 - 7.5 10*3/uL [facility] Neutrophils/100 WBC (Bld) 64.7 % 38.0 - 82.0 % [facility] Nucleated RBC/100 WBC (Bld) [Ratio] 0 % [facility] Platelet mean volume (Bld) [Entitic vol] 9.1 fL 9.0 - 12.7 fL [facility] Platelets (Bld) [#/Vol] 345 10*3/uL 140 - 440 10*3/uL [facility] RBC (Bld) [#/Vol] 2.64 10*6/uL Low 4.40 - 5.9 0 10*6/uL [facility] WBC (Bld) [#/Vol] 11.1 10*3/uL High 3.6 - 10.7 10*3/uL [facility] CBC WITH AUTO DIFFERENTIALon 01-23-2025 Basophils (Bld) [#/Vol] 0.1 10*3/uL Normal 0.0-0.2 [facility] Comment on above: Performed By: #### L [id number], [id number] ####Blow Pit Operator: DOMENICA JARA ([phone])[facility])[address] [place] [address] Basophils/100 WBC (Bld) 1.0 % Normal 0.0-2.0 [facility] Comment on above: Performed By: #### L [id number], [id number] ####Blow Pit Operator: DOMENICA JARA ([id number])[facility])[address] [place] [address] Eosinophils (Bld) [#/Vol] 0.7 10*3/uL High 0.0-0.5 [facility] Comment on above: Performed By: #### Tameka MARTINEZ, [id number] ####Blow Pit Operator: DOMENICA JARA ([phone])[facility])[address] [place] [address] Eosinophils/100 WBC (Bld) 6.8 % High 0.0-6.0 [facility] Comment on above: Performed By: #### Tameka [id number], [id number] ####Blow Pit Operator: DOMENICA JARA ([phone])[facility])[address] [place] [address] Erythrocyte distribution width (RBC) [Ratio] 18.8 % High 11.5-15.0 [facility] Comment on above: Performed By: #### Tameka [id number], [id number] ####Blow Pit Operator: DOMENICA JARA ([phone])[facility])[address] [place] [address] Hematocrit (Bld) [Volume fraction] 25.3 % Low 40.0-52.0 [facility] Comment on above: Performed By: #### Tameka [id number], [id number] ####Blow Pit Operator: DOMENICA JARA ([phone])[facility])[address] [place] [address] IMMATURE GRANS % 1.1 % Normal 0.0-2.0 [facility] Comment on above: Performed By: #### L [id number], [id number] ####Blow Pit Operator: DOMENICA JARA ([phone])[facility])[address] [place] [address] IMMATURE GRANS ABSOLUTE 0.1 10*3/uL High <0.1 [facility] Comment on above: Performed By: #### Tameka [id number], [id number] ####Blow Pit Operator: DOMENICA JARA ([phone])[facility])[address] [place] [address] Lymphocytes (Bld) [#/Vol] 1.5 10*3/uL Normal 1.0-4.3 [facility] Comment on above: Performed By: #### Tameka MARTINEZ, [id number] ####Blow Pit Operator: DOMENICA JARA ([phone])[facility])[address] [place] [address] Lymphocytes/100 WBC (Bld) 13.7 % Low 15.0-45.0 [facility] Comment on above: Performed By: #### Tameka MARTINEZ, [id number] ####Blow Pit Operator: DOMENICA JARA ([phone])[facility])[address] [place] [address] MCH (RBC) [Entitic mass] 27.9 pg Normal 26.0-34.0 [facility] Comment on above: Performed By: #### Tameka MARTINEZ, [id number] ####Blow Pit Operator: DOMENICA JARA ([phone])[facility])[address] [place] [address] MCHC 31.2 % Normal 30.5-36.0 [facility] Comment on above: Performed By: #### Tameka MARTINEZ, [id number] ####Blow Pit Operator: DOMENICA JARA ([phone])[facility])[address] [place] [address] MCV (RBC) [Entitic vol] 89.4 fL Normal 77.0-99.0 [facility] Comment on above: Performed By: #### Tameka MARTINEZ, [id number] ####Blow Pit Operator: DOMENICA JARA ([phone])[facility] ([facility])[address] [place] [address] Monocytes (Bld) [#/Vol] 1.5 10*3/uL High 0.0-0.9 [facility] Comment on above: Performed By: #### L [id number], [id number] ####Blow Pit Operator: DOMENICA JARA ([phone])[facility] ([facility])[address] [place] [address] Monocytes/100 WBC (Bld) 13.7 % High 5.0-13.0 [facility] Comment on above: Performed By: #### L [id number], [id number] ####Blow Pit Operator: DOMENICA JARA ([phone])[facility] ([facility])[address] [place] [address] NEUTROPHILS ABSOLUTE 7.0 10*3/uL Normal 1.8-7.5 [facility] Comment on above: Performed By: #### Tameka [id number], [id number] ####Blow Pit Operator: DOMENICA JARA ([phone])[facility] ([facility])[address] [place] [address] Neutrophils/100 WBC (Bld) 63.7 % Normal 38.0-82.0 [facility] Comment on above: Performed By: #### Tameka [id number], [id number] ####Blow Pit Operator: DOMENICA JARA ([id number])[facility] ([facility])[address] [place] [address] NRBC 0.0 /100 WBCs Normal 0.0-2.0 [facility] Comment on above: Performed By: #### L [id number], [id number] ####Blow Pit Operator: DOMENICA JARA ([id number])[facility] ([facility])[address] [place] [address] Platelet mean volume (Bld) [Entitic vol] 9.4 fL Normal 9.0-12.7 [facility] Comment on above: Performed By: #### L [id number], [id number] ####Blow Pit Operator: DOMENICA JARA ([phone])[facility] ([facility])[address] [place] [address] Platelets (Bld) [#/Vol] 346 10*3/uL Normal 140-440 [facility] Comment on above: Performed By: #### L [id number], [id number] ####Blow Pit Operator: DOMENICA JARA ([id number])[facility] ([facility])[address] [place] [address] RBC (Bld) [#/Vol] 2.83 10*6/uL Low 4.40-5.90 [facility] Comment on above: Performed By: #### L [id number], [id number] ####Blow Pit Operator: DOMENICA JARA ([phone])[facility] ([facility])[address] [place] [address] WBC (Bld) [#/Vol] 10.9 10*3/uL High 3.6-10.7 [facility] Comment on above: Performed By: #### L [id number], [id number] ####Blow Pit Operator: DOMENICA JARA ([id number])[facility] ([facility])[address] [place] [address] Basophils (Bld) [#/Vol] 0.1 10*3/uL Normal 0.0-0.2 [facility] Comment on above: Performed By: #### L [id number] ####Blow Pit Operator: DOMENICA JARA ([id number])[facility] ([facility])[address] [place] [address] Basophils/100 WBC (Bld) 1.1 % Normal 0.0-2.0 [facility] Comment on above: Performed By: #### L [id number] ####Blow Pit Operator: DOMENICA JARA ([phone])[facility])[address] [place] [address] Eosinophils (Bld) [#/Vol] 0.9 10*3/uL High 0.0-0.5 [facility] Comment on above: Performed By: #### L [id number] ####Blow Pit Operator: DOMENICA JARA ([phone])[facility])[address] [place] [address] Eosinophils/100 WBC (Bld) 8.0 % High 0.0-6.0 [facility] Comment on above: Performed By: #### L [id number] ####Blow Pit Operator: DOMENICA JARA ([phone])[facility])[address] [place] [address] Erythrocyte distribution width (RBC) [Ratio] 18.5 % High 11.5-15.0 [facility] Comment on above: Performed By: #### L [id number] ####Blow Pit Operator: DOMENICA JARA ([phone])[address] Hematocrit (Bld) [Volume fraction] 23.4 % Low 40.0-52.0 [facility] Comment on above: Performed By: #### L [id number] ####Blow Pit Operator: DOMENICA JARA ([phone])[facility])[address] [place] [address] Hemoglobin (Bld) [Mass/Vol] 7.3 g/dL Low 13.0-18.0 [facility] Comment on above: Performed By: #### L [id number] ####Blow Pit Operator: DOMENICA JARA ([phone])[facility])[address] [place] [address] IMMATURE GRANS % 1.1 % Normal 0.0-2.0 [facility] Comment on above: Performed By: #### L [id number] ####Blow Pit Operator: DOMENICA JARA ([phone])[address] IMMATURE GRANS ABSOLUTE 0.1 10*3/uL High <0.1 [facility] Comment on above: Performed By: #### L [id number] ####Blow Pit Operator: DOMENICA JARA ([phone])[facility])[address] [place] [address] Lymphocytes (Bld) [#/Vol] 1.4 10*3/uL Normal 1.0-4.3 [facility] Comment on above: Performed By: #### L [id number] ####Blow Pit Operator: DOMENICA JARA ([phone])[facility])[address] [place] [address] Lymphocytes/100 WBC (Bld) 12.2 % Low 15.0-45.0 [facility] Comment on above: Performed By: #### L [id number] ####Blow Pit Operator: DOMENICA JARA ([id number])[facility])[address] [place] [address] MCH (RBC) [Entitic mass] 27.7 pg Normal 26.0-34.0 [facility] Comment on above: Performed By: #### L [id number] ####Blow Pit Operator: DOMENICA JARA ([id number])[facility])[address] [place] [address] MCHC 31.2 % Normal 30.5-36.0 [facility] Comment on above: Performed By: #### L [id number] ####Blow Pit Operator: DOMENICA JARA ([phone])[facility])[address] [place] [address] MCV (RBC) [Entitic vol] 88.6 fL Normal 77.0-99.0 [facility] Comment on above: Performed By: #### L [id number] ####Blow Pit Operator: DOMENICA JARA ([phone])[facility])[address] [place] [address] Monocytes (Bld) [#/Vol] 1.4 10*3/uL High 0.0-0.9 [facility] Comment on above: Performed By: #### L [id number] ####Blow Pit Operator: DOMENICA JARA ([id number])[facility])[address] [place] [address] Monocytes/100 WBC (Bld) 12.9 % Normal 5.0-13.0 [facility] Comment on above: Performed By: #### L [id number] ####Blow Pit Operator: DOMENICA JARA ([id number])[facility] ([facility])[address] [place] [address] NEUTROPHILS ABSOLUTE 7.2 10*3/uL Normal 1.8-7.5 [facility] Comment on above: Performed By: #### L [id number] ####Blow Pit Operator: DOMENICA JARA ([phone])[facility] ([facility])[address] [place] [address] Neutrophils/100 WBC (Bld) 64.7 % Normal 38.0-82.0 [facility] Comment on above: Performed By: #### L [id number] ####Blow Pit Operator: DOMENICA JARA ([phone])[facility] ([facility])[address] [place] [address] NRBC 0.0 /100 WBCs Normal 0.0-2.0 [facility] Comment on above: Performed By: #### L [id number] ####Blow Pit Operator: DOMENICA JARA ([phone])[facility] ([facility])[address] [place] [address] Platelet mean volume (Bld) [Entitic vol] 9.1 fL Normal 9.0-12.7 [facility] Comment on above: Performed By: #### L [id number] ####Blow Pit Operator: DOMENICA JARA ([phone])[facility] ([facility])[address] [place] [address] Platelets (Bld) [#/Vol] 345 10*3/uL Normal 140-440 [facility] Comment on above: Performed By: #### L [id number] ####Blow Pit Operator: DOMENICA JARA ([phone])[facility] ([facility])[address] [place] [address] RBC (Bld) [#/Vol] 2.64 10*6/uL Low 4.40-5.90 [facility] Comment on above: Performed By: #### L [id number] ####Blow Pit Operator: DOMENICA JARA ([id number])[facility] ([facility])[address] [place] [address] WBC (Bld) [#/Vol] 11.1 10*3/uL High 3.6-10.7 [facility] Comment on above: Performed By: #### L [id number] ####Blow Pit Operator: DOMENICA JARA ([phone])[facility] ([facility])[address] [place] [address] Consulton 01-23-2025 Consult Normal [facility] Consult Normal [facility] HEMOGLOBIN AND HEMATOCRIT, B LOODon 01-23-2025 Hematocrit (Bld) [Volume fraction] 25.1 % Low 40.0-52.0 [facility] Comment on above: Performed By: #### L [id number], [id number] ####Blow Pit Operator: DOMENICA JARA ([phone])[facility] ([facility])[address] [place] [address] Hemoglobin (Bld) [Mass/Vol] 7.9 g/dL Low 13.0-18.0 [facility] Comment on above: Performed By: #### L [id number], [id number] ####Blow Pit Operator: DOMENICA JARA ([phone])[facility] ([facility])[address] [place] [address] Hemoglobin (Bld) [Mass/Vol]o n 01-23-2025 Hematocrit (Bld) [Volume fraction] 25.1 % Low 40.0 - 52.0 % [facility] Interpretation and review of laboratory results Abnormal [facility] - Chemistry and C hemistry - challengeon 01-23-2025 Glucose [Mass/Vol] 113 mg/dL High 70 - 100 mg/dL [facility] Glucose [Mass/Vol] 92 mg/dL 70 - 100 mg/dL [facility] Magnesium [Mass/Vol] 2.1 mg/dL 1.6 - 2 .6 mg/dL [facility] Laboratory - Coagulationon 0 01-23-2025 aPTT Coag (PPP) [Time] 30.6 s High 20.0 - 30.5 s [facility] INR Coag (PPP) [Relative time] 1.6 {INR} High 0.9 - 1.1 [facility] PT Coag (Bld) [Time] 16.1 s High 9.0 - 12.0 s [facility] PT Coag (Bld) [Time] 20 s High 9.0 - 12.0 s [facility] Laboratory - Hematology and Cell countson 01-23-2025 Hemoglobin (Bld) [Mass/Vol] 7.9 g/dL Low 13.0 - 18.0 g/dL [facility] MAGNESIUMon 01-23-2025 Magnesium [Mass/Vol] 2.1 mg/dL Normal 1.6-2.6 [facility] Comment on above: Result Comment: ARPAN Kaplan COMMENTS:Higher values can be expected in females during menses. Performed By: #### L AB15, AAD360, [id number] ####Blow Pit Operator: DOMENICA JARA ([phone])[address] Magnesium [Mass/Vol]on 01-23 Interpretation and review of laboratory results Normal [facility] No Panel Informationon 01-23 Interpretation and review of laboratory results Abnormal [facility] Interpretation and review of laboratory results Abnormal [facility] Interpretation and review of laboratory results Normal [facility] PHOSPHORUSon 01-23-2025 Phosphate [Mass/Vol] 4.5 mg/dL Normal 2.3-4.7 [facility] Comment on above: Performed By: #### L AB15, [id number], [id number] ####Blow Pit Operator: DOMENICA JARA ([phone])[facility] ([facility])[address] [place] [address] PROTHROMBIN TIMEon INR Coag (PPP) [Relative time] 2.0 {INR} High 0.9-1.1 [facility] Comment on above: Result Comment: Vaughn [...] Myocardial Infarction Performed By: #### L [id number] ####Blow Pit Operator: DOMENICA JARA ([phone])[facility])[address] [place] [address] PT Coag (PPP) [Time] 20.0 s High 9.0-12.0 [facility] Comment on above: Performed By: #### L [id number] ####Blow Pit Operator: DOMENICA JARA ([phone])[facility])[address] [place] [address] PROTIME AND APTTon aPTT Coag (Bld) [Time] 30.6 s High 20.0-30.5 [facility] Comment on above: Performed By: #### L [id number] ####Blow Pit Operator: DOMENICA JARA ([phone])[facility])[address] [place] [address] INR Coag (PPP) [Relative time] 1.6 {INR} High 0.9-1.1 [facility] Comment on above: Result Comment: Vaughn [...] prevent Myocardial Infarction Performed By: #### L [id number] ####Blow Pit Operator: DOMENICA JARA ([phone])[facility])[address] [place] [address] PT Coag (PPP) [Time] 16.1 s High 9.0-12.0 [facility] Comment on above: Performed By: #### L [id number] ####Blow Pit Operator: DOMENICA JARA ([phone])[facility] ([facility])[address] [place] [address] PT Coag (Bld) [Time]on 01-23 INR Coag (PPP) [Relative time] 2 {INR} High 0.9 - 1.1 [facility] Interpretation and review of laboratory results Abnormal [facility] Phosphate [Moles/Vol]Ordered By: Jenni Romano on 01-23-2025 Interpretation and review of laboratory results Normal [facility] Phosphate [Mass/Vol] 4.5 mg/dL 2.3 - 4 .7 mg/dL [facility] Progress Noteon 01-23-2025 Progress Note Normal [facility] Progress Note Normal [facility] Progress Note Normal [facility] Progress Note Normal [facility] Progress Note Normal [facility] Progress Note Normal [facility] Progress Note Normal [facility] [id number] 01-22-2025 [id number] Normal [facility] [id number] Normal [facility] Basic metabolic 1998 panelOr dered By: Nathaly Dobson on 01-22-2025 Anion gap [Moles/Vol] 13 mmol/L 3 - 13 mmol/L [facility] Calcium [Mass/Vol] 9.8 mg/dL 8.4 - 10. 2 mg/dL [facility] Chloride [Moles/Vol] 94 mmol/L Low 98 - 10 7 mmol/L [facility] CO2 [Moles/Vol] 25 mmol/L 22 - 29 mmol/L [facility] Creatinine [Mass/Vol] 4.18 mg/dL High 0.72 - 1.25 mg/dL [facility] GFR/1.73 sq M.predicted (S/P/Bld) [Vol rate/Area] 15.6 mL/min Low - PINF [facility] Glucose [Mass/Vol] 70 mg/dL Low 74 - 100 mg/dL [facility] Interpretation and review of laboratory results Abnormal [facility] Potassium [Moles/Vol] 4.4 mmol/L 3.5 - 5.1 mmol/L [facility] Sodium [Moles/Vol] 132 mmol/L Low 136 - 145 mmol/L [facility] Urea nitrogen [Mass/Vol] 53 mg/dL High 9 - 23 mg/d L [facility] CBC W Auto Differential pane l (Bld)Ordered By: Tiffanie Chand on 01-22-2025 Basophils (Bld) [#/Vol] 0.1 10*3/uL 0.0 - 0.2 10*3/uL [facility] Basophils/100 WBC (Bld) 0.8 % 0.0 - 2.0 % [facility] Eosinophils (Bld) [#/Vol] 0.7 10*3/uL High 0.0 - 0.5 10*3/uL [facility] Eosinophils/100 WBC (Bld) 6.1 % High 0.0 - 6.0 % [facility] Erythrocyte distribution width (RBC) [Ratio] 18.4 % High 11.5 - 15.0 % [facility] Hematocrit (Bld) [Volume fraction] 23.9 % Low 40.0 - 52.0 % [facility] Hemoglobin (Bld) [Mass/Vol] 7.4 g/dL Low 13.0 - 18.0 g/dL [facility] Immature granulocytes (Bld) [#/Vol] 0.1 10*3/uL High NINF - 0.1 10*3/uL [facility] Immature granulocytes/100 WBC (Bld) 1.1 % 0.0 - 2.0 % [facility] Interpretation and review of laboratory results Abnormal [facility] Lymphocytes (Bld) [#/Vol] 1 10*3/uL 1.0 - 4.3 10*3/uL [facility] Lymphocytes/100 WBC (Bld) 9.7 % Low 15.0 - 45.0 % [facility] MCH (RBC) [Entitic mass] 27.5 pg 26. 0 - 34.0 pg [facility] MCHC (RBC) [Mass/Vol] 31 % 30.5 - 36.0 % [facility] MCV (RBC) [Entitic vol] 88.8 fL 77.0 - 99.0 fL [facility] Monocytes (Bld) [#/Vol] 1.5 10*3/uL High 0.0 - 0.9 10*3/uL [facility] Monocytes/100 WBC (Bld) 14.5 % High 5.0 - 13.0 % [facility] Neutrophils (Bld) [#/Vol] 7.2 10*3/uL 1.8 - 7.5 10*3/uL [facility] Neutrophils/100 WBC (Bld) 67.8 % 38.0 - 82.0 % [facility] Nucleated RBC/100 WBC (Bld) [Ratio] 0 % [facility] Platelet mean volume (Bld) [Entitic vol] 8.2 fL Low 9.0 - 12.7 fL [facility] Platelets (Bld) [#/Vol] 292 10*3/uL 140 - 440 10*3/uL [facility] RBC (Bld) [#/Vol] 2.69 10*6/uL Low 4.40 - 5.9 0 10*6/uL [facility] WBC (Bld) [#/Vol] 10.6 10*3/uL 3.6 - 10.7 10*3/uL [facility] CBC W Auto Differential pane l (Bld)on 01-22-2025 Basophils (Bld) [#/Vol] 0.1 10*3/uL 0.0 - 0.2 10*3/uL [facility] Basophils/100 WBC (Bld) 1.1 % 0.0 - 2.0 % [facility] Eosinophils (Bld) [#/Vol] 0.8 10*3/uL High 0.0 - 0.5 10*3/uL [facility] Eosinophils/100 WBC (Bld) 7.9 % High 0.0 - 6.0 % [facility] Erythrocyte distribution width (RBC) [Ratio] 18.6 % High 11.5 - 15.0 % [facility] Hematocrit (Bld) [Volume fraction] 25.1 % Low 40.0 - 52.0 % [facility] Hemoglobin (Bld) [Mass/Vol] 8 g/dL Low 13.0 - 18.0 g/dL [facility] Immature granulocytes (Bld) [#/Vol] 0.1 10*3/uL High NINF - 0.1 10*3/uL [facility] Immature granulocytes/100 WBC (Bld) 0.8 % 0.0 - 2.0 % [facility] Interpretation and review of laboratory results Abnormal [facility] Lymphocytes (Bld) [#/Vol] 1.5 10*3/uL 1.0 - 4.3 10*3/uL [facility] Lymphocytes/100 WBC (Bld) 14.1 % Low 15.0 - 45.0 % [facility] MCH (RBC) [Entitic mass] 27.7 pg 26. 0 - 34.0 pg [facility] MCHC (RBC) [Mass/Vol] 31.9 % 30.5 - 36.0 % [facility] MCV (RBC) [Entitic vol] 86.9 fL 77.0 - 99.0 fL [facility] Monocytes (Bld) [#/Vol] 1.5 10*3/uL High 0.0 - 0.9 10*3/uL [facility] Monocytes/100 WBC (Bld) 14 % High 5.0 - 13.0 % [facility] Neutrophils (Bld) [#/Vol] 6.6 10*3/uL 1.8 - 7.5 10*3/uL [facility] Neutrophils/100 WBC (Bld) 62.1 % 38.0 - 82.0 % [facility] Nucleated RBC/100 WBC (Bld) [Ratio] 0 % [facility] Platelet mean volume (Bld) [Entitic vol] 8.8 fL Low 9.0 - 12.7 fL [facility] Platelets (Bld) [#/Vol] 330 10*3/uL 140 - 440 10*3/uL [facility] RBC (Bld) [#/Vol] 2.89 10*6/uL Low 4.40 - 5.9 0 10*6/uL [facility] WBC (Bld) [#/Vol] 10.6 10*3/uL 3.6 - 10.7 10*3/uL [facility] CBC WITH AUTO DIFFERENTIALon 01-22-2025 Basophils (Bld) [#/Vol] 0.1 10*3/uL Normal 0.0-0.2 [facility] Comment on above: Performed By: #### L [id number] ####[employer] Operator: DOMENICA JARA ([phone])[facility] ([address] Basophils/100 WBC (Bld) 0.8 % Normal 0.0-2.0 [facility] [facility] Comment on above: Performed By: #### L [id number] ####Blow Pit Operator: DOMENICA JARA ([phone])[facility])[address] [place] [address] Eosinophils (Bld) [#/Vol] 0.7 10*3/uL High 0.0-0.5 [facility] Comment on above: Performed By: #### L [id number] ####Blow Pit Operator: DOMENICA JARA ([phone])[facility])[address] [place] [address] Eosinophils/100 WBC (Bld) 6.1 % High 0.0-6.0 [facility] Comment on above: Performed By: #### L [id number] ####Blow Pit Operator: DOMENICA JARA ([phone])[address] Erythrocyte distribution width (RBC) [Ratio] 18.4 % High 11.5-15.0 [facility] Comment on above: Performed By: #### L [id number] ####Blow Pit Operator: DOMENICA JARA ([id number])[address] Hematocrit (Bld) [Volume fraction] 23.9 % Low 40.0-52.0 [facility] Comment on above: Performed By: #### L [id number] ####Blow Pit Operator: DOMENICA JARA ([id number])[address] Hemoglobin (Bld) [Mass/Vol] 7.4 g/dL Low 13.0-18.0 [facility] Comment on above: Performed By: #### L [id number] ####Blow Pit Operator: DOMENICA JARA ([id number])[address] IMMATURE GRANS % 1.1 % Normal 0.0-2.0 [facility] Comment on above: Performed By: #### L [id number] ####Blow Pit Operator: DOMENICA JARA ([phone])[facility])[address] [place] [address] IMMATURE GRANS ABSOLUTE 0.1 10*3/uL High <0.1 [facility] Comment on above: Performed By: #### L [id number] ####Blow Pit Operator: DOMENICA JARA ([phone])[facility])[address] [place] [address] Lymphocytes (Bld) [#/Vol] 1.0 10*3/uL Normal 1.0-4.3 [facility] Comment on above: Performed By: #### L [id number] ####Blow Pit Operator: DOMENICA JARA ([phone])[facility])[address] [place] [address] Lymphocytes/100 WBC (Bld) 9.7 % Low 15.0-45.0 [facility] Comment on above: Performed By: #### L [id number] ####Blow Pit Operator: DOMENICA JARA ([phone])[facility])[address] [place] [address] MCH (RBC) [Entitic mass] 27.5 pg Normal 26.0-34.0 [facility] Comment on above: Performed By: #### L [id number] ####Blow Pit Operator: DOMENICA JARA ([phone])[facility])[address] [place] [address] MCHC 31.0 % Normal 30.5-36.0 [facility] Comment on above: Performed By: #### L [id number] ####Blow Pit Operator: DOMENICA JARA ([id number])[facility])[address] [place] [address] MCV (RBC) [Entitic vol] 88.8 fL Normal 77.0-99.0 [facility] Comment on above: Performed By: #### L [id number] ####Blow Pit Operator: DOMENICA JARA ([phone])[facility])[address] [place] [address] Monocytes (Bld) [#/Vol] 1.5 10*3/uL High 0.0-0.9 [facility] Comment on above: Performed By: #### L [id number] ####Blow Pit Operator: DOMENICA JARA ([phone])[facility] ([facility])[address] [place] [address] Monocytes/100 WBC (Bld) 14.5 % High 5.0-13.0 [facility] Comment on above: Performed By: #### L [id number] ####Blow Pit Operator: DOMENICA JARA ([phone])[facility] ([facility])[address] [place] [address] NEUTROPHILS ABSOLUTE 7.2 10*3/uL Normal 1.8-7.5 [facility] Comment on above: Performed By: #### L [id number] ####Blow Pit Operator: DOMENICA JARA ([id number])[facility] ([facility])[address] [place] [address] Neutrophils/100 WBC (Bld) 67.8 % Normal 38.0-82.0 [facility] Comment on above: Performed By: #### L [id number] ####Blow Pit Operator: DOMENICA JARA ([phone])[facility] ([facility])[address] [place] [address] NRBC 0.0 /100 WBCs Normal 0.0-2.0 [facility] Comment on above: Performed By: #### L [id number] ####Blow Pit Operator: DOMENICA JARA ([phone])[facility] ([facility])[address] [place] [address] Platelet mean volume (Bld) [Entitic vol] 8.2 fL Low 9.0-12.7 [facility] Comment on above: Performed By: #### L [id number] ####Blow Pit Operator: DOMENICA JARA ([phone])[facility] ([facility])[address] [place] [address] Platelets (Bld) [#/Vol] 292 10*3/uL Normal 140-440 [facility] Comment on above: Performed By: #### L [id number] ####Blow Pit Operator: DOMENICA JARA ([phone])[facility] [place] [address] RBC (Bld) [#/Vol] 2.69 10*6/uL Low 4.40-5.90 [facility] Comment on above: Performed By: #### L [id number] ####Blow Pit Operator: DOMENICA JARA ([phone])[facility] ([facility])[address] [place] [address] WBC (Bld) [#/Vol] 10.6 10*3/uL Normal 3.6-10.7 [facility] Comment on above: Performed By: #### L [id number] ####Blow Pit Operator: DOMENICA ASHLEYELIDA ([phone])[facility] ([facility])[address] [place] [address] Coagulation index TEG Qn (Bl d)Ordered By: Santhosh Acevedo on 01-22-2025 APTEM A10 72 mm High 50 - 70 mm [facility] APTEM A20 75 mm High 50 - 70 mm [facility] Clot angle TEG (Bld) [Angle] 82 High [facility] Clot formation.extrinsic coagulation system activated Rotational TEG (Bld) [Time] 200 s High 43 - 82 s [facility] Clot formation.extrinsic coagulation system activated Rotational TEG (Bld) [Time] 42 s Low 48 - 127 s [facility] Clot formation.extrinsic coagulation system activated Rotational TEG (Bld) [Time] 82 High [facility] Clot formation.extrinsic coagulation system activated Rotational TEG (Bld) [Time] 73 mm High 50 - 70 mm [facility] Clot formation.extrinsic coagulation system activated Rotational TEG (Bld) [Time] 76 mm High 52 - 70 mm [facility] Clot formation.extrinsic coagulation system activated.fibrinolysis suppressed Rotational TEG (Bld) [Time] 44 s Low 48 - 127 s [facility] Clot formation.extrinsic coagulation system activated.fibrinolysis suppressed Rotational TEG (Bld) [Time] 33 mm [facility] Clot formation.extrinsic coagulation system activated.fibrinolysis suppressed Rotational TEG (Bld) [Time] 35 mm [facility] Clot formation.extrinsic coagulation system activated.fibrinolysis suppressed Rotational TEG (Bld) [Time] 36 mm High 7 - 24 mm [facility] Clotting time.extrinsic coagulation system activated.fibrinolysis suppressed Rotational TEG (Bld) 232 s High 43 - 82 s [facility] Interpretation and review of laboratory results Abnormal [facility] Maximum clot firmness.extrinsic coagulation system activated.fibrinolysis suppressed Rotational TEG (Bld) [Length] 75 mm High 52 - 70 mm [facility] Hemoglobin (Bld) [Mass/Vol]o n 01-22-2025 Hematocrit (Bld) [Volume fraction] 24.5 % Low 40.0 - 52.0 % [facility] Interpretation and review of laboratory results Abnormal [facility] Hepatic function 2000 panelo n 01-22-2025 Albumin [Mass/Vol] 2.2 g/dL Low 3.5 - 5.0 g/dL [facility] ALP [Catalytic activity/Vol] 274 U/L High 40 - 150 U/L [facility] ALT [Catalytic activity/Vol] 44 U/[facility] AST [Catalytic activity/Vol] 51 U/L [facility]/L [facility] Bilirubin [Mass/Vol] 0.9 mg/dL [facility] - 1.[facility] mg/dL [facility] Bilirubin.conjugated [Mass/Vol] 0.7 mg/dL High [facility] - 0.[facility] mg/dL [facility] Protein [Mass/Vol] 7.6 g/dL 6.4 - 8.3 g/dL [facility] Laboratory - Chemistry and C hemistry - challengeon 01-22-2025 Glucose [Mass/Vol] 101 mg/dL High 70 - 100 mg/dL [facility] Glucose [Mass/Vol] 77 mg/dL 70 - 100 mg/dL [facility] Glucose [Mass/Vol] 81 mg/dL 70 - 100 mg/dL [facility] Magnesium [Mass/Vol] 2.6 mg/dL 1.6 - 2 .6 mg/dL [facility] Glucose [Mass/Vol] 82 mg/dL 70 - 100 mg/dL [facility] Laboratory - Coagulationon 0 01-22-2025 aPTT Coag (PPP) [Time] 42.7 s High 20.0 - 30.5 s [facility] INR Coag (PPP) [Relative time] 3.1 {INR} High 0.9 - 1.1 [facility] PT Coag (Bld) [Time] 31 s High 9.0 - 12.0 s [facility] Fibrin D-dimer FEU (PPP) [Mass/Vol] 14.21 mg/L High NINF - 0.50 mg/L [facility] Fibrinogen Coag (PPP) [Mass/Vol] 436 mg/dL High 200 - 400 mg/dL [facility] Laboratory - CoagulationOrde red By: Maggy Lancaster on 01-22-2025 aPTT Coag (PPP) [Time] 48.1 s High 20.0 - 30.5 s [facility] INR Coag (PPP) [Relative time] 5.5 {INR} Critically high 0.9 - 1.1 [facility] PT Coag (Bld) [Time] 52.6 s High 9.0 - 12.0 s [facility] Laboratory - CoagulationOrde red By: Michelle Olmstead on 01-22-2025 PT Coag (Bld) [Time] 75.4 s High 9.0 - 12.0 s [facility] Laboratory - Hematology and Cell countson 01-22-2025 Hemoglobin (Bld) [Mass/Vol] 7.7 g/dL Low 13.0 - 18.0 g/dL [facility] Magnesium [Mass/Vol]on 01-22 Interpretation and review of laboratory results Normal [facility] No Panel Informationon 01-22 Interpretation and review of laboratory results Abnormal [facility] Interpretation and review of laboratory results Abnormal [facility] Blood Expiration Date [id number] [facility] Dispens Status [facility] Product Blood Type 6200 [facility] PRODUCT CODE [id number] [facility] ABO A [facility] Unit Number [id number] [facility] Unit RH Positive [facility] Unit Volume 209 ml [facility] Interpretation and review of laboratory results Normal [facility] Interpretation and review of laboratory results Normal [facility] Interpretation and review of laboratory results Abnormal [facility] Interpretation and review of laboratory results Abnormal [facility] Interpretation and review of laboratory results Normal [facility] No Panel InformationOrdered By: Maggy Lancaster on 01-22-2025 Interpretation and review of laboratory results Abnormal [facility] Nursing Noteon 01-22-2025 Nursing Note Normal [facility] PROTIME AND APTTon aPTT Coag (Bld) [Time] 42.7 s High 20.0-30.5 [facility] Comment on above: Order Comment: Recom mend 15 to 30 minutes post transfusion Performed By: #### L [id number] ####Blow Pit Operator: DOMENICA JARA ([id number])[facility] ([facility])[address] [place] [address] INR Coag (PPP) [Relative time] 3.1 {INR} High 0.9-1.1 [facility] Comment on above: Order Comment: Recom [...] prevent Myocardial Infarction Performed By: #### L [id number] ####Blow Pit Operator: DOMENICA JARA ([phone])[facility] ([facility])[address] [place] [address] PT Coag (PPP) [Time] 31.0 s High 9.0-12.0 [facility] Comment on above: Order Comment: Recom mend 15 to 30 minutes post transfusion Performed By: #### L [id number] ####Blow Pit Operator: DOMENICA JARA ([id number])[facility] ([facility])[address] [place] [address] aPTT Coag (Bld) [Time] 48.1 s High 20.0-30.5 [facility] Comment on above: Performed By: #### L [id number] ####Blow Pit Operator: DOMENICA [id number])[facility] ([facility])[address] [place] [address] INR Coag (PPP) [Relative time] 5.5 {INR} Critically high 0.9-1.1 [facility] Comment on above: Result Comment: Vaughn [...] prevent Myocardial Infarction Performed By: #### L [id number] ####Blow Pit Operator: DOMENICA JARA ([id number])[facility] ([facility])[address] [place] [address] PT Coag (PPP) [Time] 52.6 s High 9.0-12.0 [facility] Comment on above: Performed By: #### L [id number] ####Blow Pit Operator: DOMENICA JARA ([phone])[facility] ([facility])[address] [place] [address] PT Coag (Bld) [Time]Ordered By: Michelle Olmstead on 01-22-2025 INR Coag (PPP) [Relative time] 8.1 {INR} Critically high 0.9 - 1.1 [facility] Interpretation and review of laboratory results Abnormal [facility] Phosphate [Moles/Vol]on 12-27 Phosphate [Mass/Vol] 6.8 mg/dL High 2.3 - 4 .7 mg/dL [facility] Progress Noteon 01-22-2025 Progress [facility] Progress Note Normal [facility] Progress Note Normal [facility] ZOË TRAUMA PANELon 025 APTEM CLOT FORMATION TIME 44 s Low 48-127 [facility] Comment on above: Performed By: #### L [id number] ####Blow Pit Operator: DOMENICA JARA ([phone])[facility] B[facility]OD [facility] ([facility])[address] [place] [address] [place] APTEM CLOTTING TIME 232 s High 43-82 [facility] System [facility] Comment on above: Performed By: #### L [id number] ####Blow Pit Operator: DOMENICA JARA ([phone])[facility] BLOOD [facility] (ACH)[address] aPTT Coag (Bld) [Time]on aPTT Coag (PPP) [Time] 46 s High 20.0 - 30.5 s [facility] Basic metabolic 1998 panelOr dered By: Jarred José on 01-21-2025 Anion gap [Moles/Vol] 15 mmol/L High 3 - 13 mmol/L [facility] Calcium [Mass/Vol] 9.9 mg/dL 8.4 - 10. 2 mg/dL [facility] Chloride [Moles/Vol] 96 mmol/L Low 98 - 10 7 mmol/L [facility] [employer] CO2 [Moles/Vol] 24 mmol/L 22 - 29 mmol/L [facility] Creatinine [Mass/Vol] 2.99 mg/dL High 0.72 - 1.25 mg/dL [facility] GFR/1.73 sq M.predicted (S/P/Bld) [Vol rate/Area] 23.3 mL/min Low - PINF [facility] Glucose [Mass/Vol] 60 mg/dL Low 74 - 100 mg/dL [facility] Interpretation and review of laboratory results Abnormal [facility] Potassium [Moles/Vol] 4.3 mmol/L 3.5 - 5.1 mmol/L [facility] Sodium [Moles/Vol] 135 mmol/L Low 136 - 145 mmol/L [facility] Urea nitrogen [Mass/Vol] 46 mg/dL High 9 - 23 mg/d L [facility] CBC W Auto Differential pane l (Bld)on 01-21-2025 Basophils (Bld) [#/Vol] 0.1 10*3/uL 0.0 - 0.2 10*3/uL [facility] Basophils/100 WBC (Bld) 1 % 0.0 - 2.0 % [facility] Eosinophils (Bld) [#/Vol] 0.4 10*3/uL 0.0 - 0.5 10*3/uL [facility] Eosinophils/100 WBC (Bld) 3.8 % 0.0 - 6.0 % [facility] Erythrocyte distribution width (RBC) [Ratio] 18.6 % High 11.5 - 15.0 % [facility] Hematocrit (Bld) [Volume fraction] 27.3 % Low 40.0 - 52.0 % [facility] Hemoglobin (Bld) [Mass/Vol] 8.3 g/dL Low 13.0 - 18.0 g/dL [facility] Immature granulocytes (Bld) [#/Vol] 0.1 10*3/uL High NINF - 0.1 10*3/uL [facility] Immature granulocytes/100 WBC (Bld) 1.2 % 0.0 - 2.0 % [facility] Interpretation and review of laboratory results Abnormal [facility] Lymphocytes (Bld) [#/Vol] 1.7 10*3/uL 1.0 - 4.3 10*3/uL [facility] Lymphocytes/100 WBC (Bld) 16.5 % 15.0 - 45.0 % [facility] MCH (RBC) [Entitic mass] 27 pg 26. 0 - 34.0 pg [facility] MCHC (RBC) [Mass/Vol] 30.4 % Low 30.5 - 36.0 % [facility] MCV (RBC) [Entitic vol] 88.9 fL 77.0 - 99.0 fL [facility] Monocytes (Bld) [#/Vol] 1.4 10*3/uL High 0.0 - 0.9 10*3/uL [facility] Monocytes/100 WBC (Bld) 14.3 % High 5.0 - 13.0 % [facility] Neutrophils (Bld) [#/Vol] 6.4 10*3/uL 1.8 - 7.5 10*3/uL [facility] Neutrophils/100 WBC (Bld) 63.2 % 38.0 - 82.0 % [facility] Nucleated RBC/100 WBC (Bld) [Ratio] 0 % [facility] Platelet mean volume (Bld) [Entitic vol] 8.7 fL Low 9.0 - 12.7 fL [facility] Platelets (Bld) [#/Vol] 365 10*3/uL 140 - 440 10*3/uL [facility] RBC (Bld) [#/Vol] 3.07 10*6/uL Low 4.40 - 5.9 0 10*6/uL [facility] WBC (Bld) [#/Vol] 10.1 10*3/uL 3.6 - 10.7 10*3/uL [facility] CBC panel Auto (Bld)Ordered By: Piedad Alvarado on 01-21-2025 Erythrocyte distribution width (RBC) [Ratio] 18.6 % High 11.5 - 15.0 % [facility] Hematocrit (Bld) [Volume fraction] 25.3 % Low 40.0 - 52.0 % [facility] Hemoglobin (Bld) [Mass/Vol] 8 g/dL Low 13.0 - 18.0 g/dL [facility] Interpretation and review of laboratory results Abnormal [facility] MCH (RBC) [Entitic mass] 27.7 pg 26. 0 - 34.0 pg [facility] MCHC (RBC) [Mass/Vol] 31.6 % 30.5 - 36.0 % [facility] MCV (RBC) [Entitic vol] 87.5 fL 77.0 - 99.0 fL [facility] Platelet mean volume (Bld) [Entitic vol] 9.1 fL 9.0 - 12.7 fL [facility] Platelets (Bld) [#/Vol] 353 10*3/uL 140 - 440 10*3/uL [facility] RBC (Bld) [#/Vol] 2.89 10*6/uL Low 4.40 - 5.9 0 10*6/uL [facility] WBC (Bld) [#/Vol] 9.2 10*3/uL 3.6 - 10.7 10*3/uL [facility] Hemoglobin (Bld) [Mass/Vol]o n 01-21-2025 Hematocrit (Bld) [Volume fraction] 22.4 % Low 40.0 - 52.0 % [facility] Interpretation and review of laboratory results Abnormal [facility] Laboratory - Chemistry and C hemistry - challengeon 01-21-2025 Glucose [Mass/Vol] 86 mg/dL 70 - 100 mg/dL [facility] Glucose [Mass/Vol] 92 mg/dL 70 - 100 mg/dL [facility] Glucose [Mass/Vol] 92 mg/dL 70 - 100 mg/dL [facility] Glucose [Mass/Vol] 107 mg/dL High 70 - 100 mg/dL [facility] Glucose [Mass/Vol] 129 mg/dL High 70 - 100 mg/dL [facility] Glucose [Mass/Vol] 67 mg/dL Low 70 - 100 mg/dL [facility] Magnesium [Mass/Vol] 2.5 mg/dL 1.6 - 2 .6 mg/dL [facility] Glucose [Mass/Vol] 74 mg/dL 70 - 100 mg/dL [facility] Laboratory - CoagulationOrde red By: Treva Mcfarland on 01-21-2025 PT Coag (Bld) [Time] 73.5 s High 9.0 - 12.0 s [facility] Laboratory - Hematology and Cell countson 01-21-2025 Hemoglobin (Bld) [Mass/Vol] 7.1 g/dL Low 13.0 - 18.0 g/dL [facility] Magnesium [Mass/Vol]on 01-21 Interpretation and review of laboratory results Normal [facility] No Panel Informationon 01-21 Interpretation and review of laboratory results Normal [facility] Interpretation and review of laboratory results Normal [facility] Interpretation and review of laboratory results Normal [facility] Interpretation and review of laboratory results Abnormal [facility] Interpretation and review of laboratory results Abnormal [facility] Interpretation and review of laboratory results Abnormal [facility] Interpretation and review of laboratory results Normal [facility] PT Coag (Bld) [Time]Ordered By: Treva Mcfarland on 01-21-2025 INR Coag (PPP) [Relative time] 7.9 {INR} Critically high 0.9 - 1.1 [facility] Interpretation and review of laboratory results Abnormal [facility] Phosphate [Moles/Vol]on 12-27 Interpretation and review of laboratory results Abnormal [facility] Phosphate [Mass/Vol] 5.3 mg/dL High 2.3 - 4 .7 mg/dL [facility] Basic metabolic 1998 panelon 01-20-2025 Anion gap [Moles/Vol] 15 mmol/L High 3 - 13 mmol/L [facility] Calcium [Mass/Vol] 9.2 mg/dL 8.4 - 10. 2 mg/dL [facility] Chloride [Moles/Vol] 98 mmol/L 98 - 10 7 mmol/L [facility] CO2 [Moles/Vol] 22 mmol/L 22 - 29 mmol/L [facility] Creatinine [Mass/Vol] 4.31 mg/dL High 0.72 - 1.25 mg/dL [facility] GFR/1.73 sq M.predicted (S/P/Bld) [Vol rate/Area] 15 mL/min Low - PINF [facility] Glucose [Mass/Vol] 68 mg/dL Low 74 - 100 mg/dL [facility] Interpretation and review of laboratory results Abnormal [facility] Potassium [Moles/Vol] 4.8 mmol/L 3.5 - 5.1 mmol/L [facility] Sodium [Moles/Vol] 135 mmol/L Low 136 - 145 mmol/L [facility] Urea nitrogen [Mass/Vol] 91 mg/dL High 9 - 23 mg/d L [facility] Blood type and Crossmatch pa freida (Bld)on 01-20-2025 ABO group Nom (Bld) O [facility] Blood group antibody screen GEL Ql Negative [facility] D Ag Ql (RBC) Negative [facility] CBC W Auto Differential pane l (Bld)Ordered By: Haley Vitale on 01-20-2025 Basophils (Bld) [#/Vol] 0.1 10*3/uL 0.0 - 0.2 10*3/uL [facility] Basophils/100 WBC (Bld) 1.1 % 0.0 - 2.0 % [facility] Eosinophils (Bld) [#/Vol] 0.5 10*3/uL 0.0 - 0.5 10*3/uL [facility] Eosinophils/100 WBC (Bld) 4.5 % 0.0 - 6.0 % [facility] Erythrocyte distribution width (RBC) [Ratio] 18.3 % High 11.5 - 15.0 % [facility] Hematocrit (Bld) [Volume fraction] 21.3 % Low 40.0 - 52.0 % [facility] Hemoglobin (Bld) [Mass/Vol] 6.6 g/dL Critically low 13.0 - 18.0 g/dL [facility] Immature granulocytes (Bld) [#/Vol] 0.1 10*3/uL High NINF - 0.1 10*3/uL [facility] Immature granulocytes/100 WBC (Bld) 1 % 0.0 - 2.0 % [facility] Interpretation and review of laboratory results Abnormal [facility] Lymphocytes (Bld) [#/Vol] 1.2 10*3/uL 1.0 - 4.3 10*3/uL [facility] Lymphocytes/100 WBC (Bld) 11.6 % Low 15.0 - 45.0 % [facility] MCH (RBC) [Entitic mass] 27.4 pg 26. 0 - 34.0 pg [facility] MCHC (RBC) [Mass/Vol] 31 % 30.5 - 36.0 % [facility] MCV (RBC) [Entitic vol] 88.4 fL 77.0 - 99.0 fL [facility] Monocytes (Bld) [#/Vol] 1.1 10*3/uL High 0.0 - 0.9 10*3/uL [facility] Monocytes/100 WBC (Bld) 10.1 % 5.0 - 13.0 % [facility] Neutrophils (Bld) [#/Vol] 7.5 10*3/uL 1.8 - 7.5 10*3/uL [facility] Neutrophils/100 WBC (Bld) 71.7 % 38.0 - 82.0 % [facility] Nucleated RBC/100 WBC (Bld) [Ratio] 0 % [facility] Platelet mean volume (Bld) [Entitic vol] 9 fL 9.0 - 12.7 fL [facility] Platelets (Bld) [#/Vol] 279 10*3/uL 140 - 440 10*3/uL [facility] RBC (Bld) [#/Vol] 2.41 10*6/uL Low 4.40 - 5.9 0 10*6/uL [facility] WBC (Bld) [#/Vol] 10.5 10*3/uL 3.6 - 10.7 10*3/uL [facility] CT Abdomen and Pelvis W cont rast Dimitrios 01-20-2025 [facility] RAD[facility] Radiology Study observation (narrative) [facility] CT Abdomen and Pelvis W cont rast IVOrdered By: Karly Parker on 01-20-2025 [facility] Work Phone: Hemoglobin (Bld) [Mass/Vol]o n 01-20-2025 Hematocrit (Bld) [Volume fraction] 25.8 % Low 40.0 - 52.0 % [facility] Interpretation and review of laboratory results Abnormal [facility] Hematocrit (Bld) [Volume fraction] 25.7 % Low 40.0 - 52.0 % [facility] Interpretation and review of laboratory results Abnormal [facility] Hematocrit (Bld) [Volume fraction] 25.8 % Low 40.0 - 52.0 % [facility] Interpretation and review of laboratory results Abnormal [facility] Laboratory - Chemistry and C hemistry - challengeon 01-20-2025 Magnesium [Mass/Vol] 2.8 mg/dL High 1.6 - 2 .6 mg/dL [facility] Laboratory - Hematology and Cell countson 01-20-2025 Hemoglobin (Bld) [Mass/Vol] 8.3 g/dL Low 13.0 - 18.0 g/dL [facility] Hemoglobin (Bld) [Mass/Vol] 8.2 g/dL Low 13.0 - 18.0 g/dL [facility] Hemoglobin (Bld) [Mass/Vol] 8.2 g/dL Low 13.0 - 18.0 g/dL [facility] Magnesium [Mass/Vol]on 01-20 [facility] No Panel Informationon 01-20 Interpretation and review of laboratory results Abnormal [facility] Phosphate [Moles/Vol]on 12-27 Phosphate [Mass/Vol] 6.1 mg/dL High 2.3 - 4 .7 mg/dL [facility] No Panel Informationon 01-19 P Dalzell 69 degrees [facility] IA Interval 148 ms [facility] QRS [place]zell 93 degrees [facility] QRSD Interval [address] [facility]val 413 ms [facility] QTC Interval 515 ms [facility] T Wave [place]zell 87 degrees [facility] CV EPIPHANY [facility] 4h Troponin HS (Serial 3rd Troponin) 94 ng/L High NINF - 35 ng/L [facility] Interpretation and review of laboratory results Abnormal [facility] 2h Troponin HS (Serial 2nd Troponin) 106 ng/L High NINF - 35 ng/L [facility] Interpretation and review of laboratory results Abnormal [facility] Vital signson 01-19-2025 Heart rate 93 /min bpm [facility] Airwayon 10-12-2024 Rudolph German CRNA 10/12/2024 7:56 AM Airway Date/Time: 10/12/2024 7:38 AM Urgency: scheduled Airway not difficult General Information and Staff Patient location during procedure: Procedural Anesthesiologist: Vincent Wilson MD Resident/PHARMACY TECHNICIAN: Rudolph German CRNA Performed: anesthesiologist Indications [...] 21 Number of attempts at approach: 1 [facility] Arterial Lineon 10-12-2024 Rudolph German CRNA [...] procedure well with no complications. Staffing Performed: PHARMACY TECHNICIAN Resident/PHARMACY TECHNICIAN: Rudolph German CRNA [facility] Central Venous Lineon 2024 Rudolph German CRNA [...] during the procedure: no complications. Staffing Performed: PHARMACY TECHNICIAN Resident/PHARMACY TECHNICIAN: Rudolph German CRNA [facility] No Panel Informationon 10-[address] [facility] [address] Head WO contraston 2024 No acute intracranial hemorrhage or large territorial infarct. Nonspecific small air locules within the scalp adjacent to the right temporal bone and within the right dinkey driver space. Pneumatized secretions within the maxillary sinuses may correspond with acute sinusitis in the appropriate clinical setting. Report Dictated on Electronically Signed By: Yvonne Abraham DO Electronically Signed Date/Time: 10/03/2024 2:14 PM [facility] Patient Name: JUN SNYDER : [...] right temporal bone and within the right dinkey driver space. [facility] Yvonne Abraham DO - 10/03/2024 Patient Name: JUN SNYDER : 1965 [id number] Ex[facility] Date/Time: 10/03/2024 11:26 Procedure: CT HEAD [...] right temporal bone and within the right dinkey driver space. IMPRESSION: No acute intracranial hemorrhage or large territorial infarct. Nonspecific small air locules within the scalp adjacent to the right temporal bone and within the right dinkey driver space. Pneumatized secretions within the maxillary sinuses may correspond with acute sinusitis in the appropriate clinical setting. Report Dictated on Electronically Signed By: Yvonne Abraham DO Electronically Signed Date/Time: 10/03/2024 2:14 PM EST [facility] Radiology Study observation (narrative) [facility] Head WO contrastOrdered B y: Yvonne Abraham on 10-03-2024 [facility] Work Phone: XR Chest Single viewon 10-03 No focal consolidation or pulmonary edema. Report Dictated on Electronically Signed By: Bob Ken MD Electronically Signed Date/Time: 10/03/2024 12:22 PM EST [facility] Patient Name: JUN SNYDER : [...] change of the thoracic spine is noted. [facility] Bob Ken MD - 10/03/2024 [...] Electronically Signed Date/Time: 10/03/2024 12:22 PM EST [facility] [employer] Radiology Study observation (narrative) [facility] XR Chest Single viewOrdered By: Bob Ken on 10-03-2024 [facility] Work Phone: ECG 12 leadon 08-28-2024 Sinus Rhythm -Incomplete right bundle branch block. -Left atrial enlargement. Voltage criteria for LVH (S(V1)+R(V6) exceeds 3.50 mV). -ST depression -Seen with left ventricular hypertrophy (strain) -consider ischemia. [facility] [employer] CNPAllison 04-12-2024 [facility] Telephone (TXCTGL) JUN SNYDER ([id number]) 1965 M Date Time Provider Department 04/12/24 [facility] During your visit today, we recorded the following information about you: Lanie Luis 04/12/2024 11:52 AM Signed I called patient to start the kidney referral intake process. Voicemail is full, sent a letter out. Lanie Allergies As of Date: 04/12/2024 Noted Allergy Reaction LISINOPRIL 02/14/2020 7 - Swelling Date Reviewed: 12/25/2021 Reviewed by: Michelle Streeter, LEISA - Fully Assessed Prescriptions as of 04/12/2024 [...] Status:Closed by LANIE LUIS on 04/12/24 [facility] 12 leadon 11-12-2023 Sinus Rhythm -Left atrial enlargement. IRBBB LVH with repolarization ABNORMAL [facility] ECG 12 leadOrdered By: Michaela Coombs on 11-12-2023 [facility] [employer] Work Phone: Basic metabolic 1998 panelon 08-17-2023 Anion gap [Moles/Vol] 15 mmol/L High 3 - 13 mmol/L [facility] Calcium [Mass/Vol] 8.7 mg/dL 8.4 - 10. 4 mg/dL [facility] Chloride [Moles/Vol] 94 mmol/L Low 98 - 10 7 mmol/L [facility] CO2 [Moles/Vol] 26 mmol/L 22 - 30 mmol/L [facility] Creatinine [Mass/Vol] 6.78 mg/dL High 0.66 - 1.25 mg/dL [facility] GFR/1.73 sq M.predicted MDRD (S/P/Bld) [Vol rate/Area] 8.8 mL/min/{1.73_m2} Low - PINF [facility] Comment on above: Calculation based on the Chronic Kidney Disease Epidemiology Collaboration (CKD-EPI) equation refit without adjustment for race Glucose [Mass/Vol] 102 mg/dL High 70 - 100 mg/dL [facility] Interpretation and review of laboratory results Abnormal [facility] Potassium [Moles/Vol] 5.0 mmol/L 3.5 - 5.1 mmol/L [facility] Sodium [Moles/Vol] 134 mmol/L Low 135 - 145 mmol/L [facility] Urea nitrogen [Mass/Vol] 46 mg/dL High 9 - 20 mg/d L [facility] Laboratory - Chemistry and C hemistry - challengeon 08-17-2023 Magnesium [Mass/Vol] 2.1 mg/dL 1.6 - 2 .3 mg/dL [facility] TSH Qn 0.981 m[IU]/L [facility] TSH Qn 1.190 m[IU]/L [facility] Troponin I.cardiac [Mass/Vol] 0.094 ng/mL High NINF - 0.034 ng/mL [facility] Magnesium [Mass/Vol]on 08-17 Interpretation and review of laboratory results Normal [facility] No Panel InformationOrdered By: Ruy Milton on 08-17-2023 P Dalzell degrees [facility] [employer] Work Phone: IA Interval ms [facility] [employer] Work Phone: QRS [place] 61 degrees [facility] [employer] Work Phone: QRSD Interval 114 ms [facility] Work Phone: QT Interval 364 ms [facility] Work Phone: QTC Interval 491 ms [facility] [employer] Work Phone: T Wave Dalzell -20 degrees [facility] [employer] Work Phone: [facility] Work Phone: No Panel Informationon 08-17 ATRIAL FIBRILLATION, V-RATE 88-139 INCOMPLETE RIGHT BUNDLE BRANCH BLOCK PROBABLE LEFT VENTRICULAR HYPERTROPHY Compared to ECG 10/19/2019 08:01:11 Sinus rhythm no longer present Atrial abnormality no longer present Electronically Signed On 08-17-2023 6:57:31 EST by Ruy Milton CV Ruy Fulton MD - 08/17/2023 IMPRESSION: ATRIAL FIBRILLATION, V-RATE 88-139 INCOMPLETE RIGHT BUNDLE BRANCH BLOCK PROBABLE LEFT VENTRICULAR HYPERTROPHY Compared to ECG 10/19/2019 08:01:11 Sinus rhythm no longer present Atrial abnormality no longer present Electronically Signed On 08-17-2023 6:57:31 EST by Ruy Milton [facility] TSH Qnon 08-17-2023 Interpretation and review of laboratory results Normal [facility] Interpretation and review of laboratory results Normal [facility] Troponin I.cardiac [Mass/Vol ]on 08-17-2023 Interpretation and review of laboratory results Abnormal [facility] Patients with high levels of Biotin oral intake (ie >5 mg/day) may have falsely decreased Troponin levels. [facility] US Heart TransthoracicOrdere d By: Jr Shah on 08-17-2023 Ao Root Index 1.58 cm/m2 [facility] Work Phone: Aortic Root 3.3 cm [facility] Work Phone: Ascending Aorta 3.3 cm [facility] Work Phone: Ascending Aorta Index 1.58 cm/m2 [facility] Work Phone: AV Area by Peak Velocity 1.1 cm2 [facility] Work Phone: AV Area by VTI 1.1 cm2 [facility] Work Phone: AV AT 97.05 ms [facility] Work Phone: AV Mean Gradient 34 mmHg [facility] Work Phone: AV Mean Velocity 2.7 m/s [facility] Work Phone: AV Peak Gradient 59 mmHg [facility] Work Phone: AV Peak Velocity 3.8 m/s [facility] Work Phone: AV Velocity Ratio 0.26 [facility] Work Phone: AV VTI 84.0 cm [facility] Work Phone: [phone] MALU/BSA Peak Velocity 0.5 cm2/m2 [facility] Work Phone: MALU/BSA VTI 0.5 cm2/m2 [facility] Work Phone: [phone] E/E' Lateral 11.44 [facility] Work Phone: E/E' Ratio (Averaged) 13.08 [facility] Work Phone: E/E' Septal 14.71 [facility] Work Phone: [phone] EF BP 62 % 55 - 100 % [facility] Work Phone: Est. RA Pressure 0 mmHg [facility] Work Phone: [phone] Fractional Shortening 2D 30 % 28 - 44 % [facility] Work Phone: [phone] Interpretation and review of laboratory results Abnormal [facility] Work Phone: IVC Diameter 1.1 cm [facility] Work Phone: [phone] IVSd 1.1 cm Abnormal 0.6 - 1.0 cm [facility] Work Phone: [phone] LA Diameter 4.0 cm [facility] Work Phone: [phone] LA Size Index 1.91 cm/m2 [facility]alt [facility] Work Phone: [phone] LA Volume 2C 66 mL Abnormal 18 - 58 mL [facility] Work Phone: [phone] LA Volume 4C 71 mL Abnormal 18 - 58 mL [facility] Work Phone: LA Volume A/L 75 mL [facility] Work Phone: LA Volume BP 69 mL Abnormal 18 - 58 mL [facility] Work Phone: LA Volume Index 2C 32 mL/m2 16 - 34 mL/m2 [facility] Work Phone: LA Volume Index 4C 34 mL/m2 16 - 34 mL/m2 [facility] Work Phone: LA Volume Index A/L 36 mL/m2 16 - 34 mL/m2 [facility] Work Phone: LA Volume Index BP 33 ml/m2 16 - 34 ml/m2 [facility] ma Health Work Phone: LA/AO Root Ratio 1.21 [facility] Work Phone: LV E' Lateral Velocity 9 cm/s [facility] Work Phone: LV E' Septal Velocity 7 cm/s [facility] Work Phone: LV EDV A2C 104 mL [facility] Work Phone: LV EDV A4C 89 mL [facility] Work Phone: LV EDV BP 97 mL 67 - 155 mL [facility] Work Phone: LV EDV Index A2C 50 mL/m2 [facility] al[facility] Work Phone: LV EDV Index A4C 43 mL/m2 [facility] Work Phone: LV EDV Index BP 46 mL/m2 [facility] Work Phone: LV Ejection Fraction A2C 61 % [facility] Work Phone: LV Ejection Fraction A4C 64 % [facility] Work Phone: LV ESV A2C 41 mL [facility] Work Phone: LV ESV A4C 32 mL [facility] Work Phone: LV ESV BP 37 mL 22 - 58 mL [facility] Work Phone: LV ESV Index A2C 20 mL/m2 [facility] al[facility] Work Phone: LV ESV Index A4C 15 mL/m2 [facility] al[facility] Work Phone: LV ESV Index BP 18 mL/m2 [facility] Work Phone: LV Mass 2D 173.6 g 88 - 224 g [facility] Health Work Phone: LV Mass 2D Index 83.1 g/m2 49 - 115 g/m2 [facility] Work Phone: LV RWT Ratio 0.56 [facility] Work Phone: LVIDd 4.3 cm 4.2 - 5.9 cm [facility] Work Phone: LVIDd Index 2.06 cm/m2 [facility] Work Phone: LVIDs 3.0 cm [facility] Work Phone: LVIDs Index 1.44 cm/m2 [facility] Work Phone: LVOT Area 4.2 cm2 [facility] Work Phone: LVOT Cardiac Output 7.6 liter/minute [facility] Work Phone: LVOT Diameter 2.3 cm [facility] Work Phone: LVOT Mean Gradient 2 mmHg [facility] Work Phone: LVOT Peak Gradient 4 mmHg [facility] Work Phone: LVOT Peak Velocity 1.0 m/s [facility] Work Phone: LVOT Stroke Volume Index 46.5 mL/m2 [facility] Work Phone: LVOT SV 97.2 ml [facility] Work Phone: LVOT VTI 23.4 cm [facility] Work Phone: LVOT:AV VTI Index 0.28 [facility] ealth Work Phone: LVPWd 1.2 cm Abnormal 0.6 - 1.0 cm [facility] Work Phone: MV A Velocity 0.79 m/s [facility] Work Phone: [phone] MV Area by PHT 1.9 cm2 [facility] Work Phone: [phone] MV E Velocity 1.03 m/s [facility] Work Phone: [phone] MV E Wave Deceleration Time 278.6 ms [facility] Work Phone: [phone] MV E/A 1.30 [facility] Work Phone: [phone] MV Mean Gradient 3 mmHg [facility] Work Phone: [phone] MV Peak Gradient 6 mmHg [facility] Work Phone: MV PHT 113.0 ms [facility] Work Phone: [phone] RA Area 4C 79.9 mL [facility] Work Phone: [phone] RA Area 4C 77.7 mL [facility] Work Phone: [phone] RV Basal Dimension 4.6 cm [facility] Work Phone: RV Mid Dimension 3.3 cm [facility] Work Phone: [phone] RVSP 30 mmHg [facility] Work Phone: [phone] Sinotubular Junction 3.0 cm [facility] Work Phone: [phone] TR Max Velocity 2.72 m/s [employer] [facility] [facility] Work Phone: [phone] TR Peak Gradient 30 mmHg [facility] Work Phone: [phone] [facility] Work Phone: [phone] Heart Transthoracicon [...] on 08-17-2023 Heart rate 109 /min bpm [facility] Work Phone: Basic metabolic 1998 panelon 08-16-2023 Anion gap [Moles/Vol] 15 mmol/L High 3 - 13 mmol/L [facility] Calcium [Mass/Vol] 9.1 mg/dL 8.4 - 10. 4 mg/dL [employer] Chloride [Moles/Vol] 93 mmol/L Low 98 - 10 7 mmol/L [facility] [employer] CO2 [Moles/Vol] 25 mmol/L 22 - 30 mmol/L [facility] [employer] Creatinine [Mass/Vol] 6.01 mg/dL High 0.66 - 1.25 mg/dL [facility] GFR/1.73 sq M.predicted MDRD (S/P/Bld) [Vol rate/Area] 10.2 mL/min/{1.73_m2} Low - PINF [facility] Comment on above: Calculation based on the Chronic Kidney Disease Epidemiology Collaboration (CKD-EPI) equation refit without adjustment for race Glucose [Mass/Vol] 110 mg/dL High 70 - 100 mg/dL [facility] Interpretation and review of laboratory results Abnormal [facility] Potassium [Moles/Vol] 4.5 mmol/L 3.5 - 5.1 mmol/L [facility] Sodium [Moles/Vol] 133 mmol/L Low 135 - 145 mmol/L [facility] Urea nitrogen [Mass/Vol] 40 mg/dL High 9 - 20 mg/d L [facility] CBC W Auto Differential pane l (Bld)Ordered By: Aric Montejo on 08-16-2023 Basophils (Bld) [#/Vol] 0.1 10*3/uL 0.0 - 0.2 10*3/uL [facility] Basophils/100 WBC (Bld) 1.3 % 0.0 - 2.0 % [facility] Eosinophils (Bld) [#/Vol] 0.5 10*3/uL 0.0 - 0.5 10*3/uL [facility] Eosinophils/100 WBC (Bld) 5.1 % 1.0 - 6.0 % [facility] Erythrocyte distribution width (RBC) [Ratio] 14.7 % High 11.5 - 14.5 % [facility] Hematocrit (Bld) [Volume fraction] 41.6 % 40.0 - 52.0 % [facility] Hemoglobin (Bld) [Mass/Vol] 14.5 g/dL 13.0 - 18.0 g/dL [facility] Interpretation and review of laboratory results Abnormal [facility] Lymphocytes (Bld) [#/Vol] 1.3 10*3/uL 1.0 - 4.3 10*3/uL [facility] Lymphocytes/100 WBC (Bld) 14.2 % Low 20.0 - 40.0 % [facility] MCH (RBC) [Entitic mass] 31.5 pg 26. 0 - 34.0 pg [facility] MCHC (RBC) [Mass/Vol] 34.8 % 32.0 - 36.0 % [facility] MCV (RBC) [Entitic vol] 90.5 fL 80.0 - 98.0 fL [facility] Monocytes (Bld) [#/Vol] 1.3 10*3/uL High 0.0 - 0.8 10*3/uL [facility] Monocytes/100 WBC (Bld) 13.5 % High 2.0 - 10.0 % [facility] Neutrophils (Bld) [#/Vol] 6.2 10*3/uL 1.8 - 7.0 10*3/uL [facility] Neutrophils/100 WBC (Bld) 65.9 % 40.0 - 80.0 % [facility] Nucleated RBC/100 WBC (Bld) [Ratio] 0.1 % [facility] Platelet mean volume (Bld) [Entitic vol] 7.3 fL Low 7.4 - 12.4 fL [facility] Platelets (Bld) [#/Vol] 254 10*3/uL 140 - 440 10*3/uL [facility] RBC (Bld) [#/Vol] 4.60 10*6/uL 4.40 - 5.9 0 10*6/uL [facility] WBC (Bld) [#/Vol] 9.5 10*3/uL 3.6 - 10.7 10*3/uL [facility] - Chemistry and C hemistry - challengeon 08-16-2023 Troponin I.cardiac [Mass/Vol] 0.062 ng/mL High [facility] - 0.034 ng/mL [facility] Troponin I.cardiac [Mass/Vol] 0.037 ng/mL High [facility] - 0.034 ng/mL [facility] Troponin I.cardiac [Mass/Vol ]on 08-16-2023 Interpretation and review of laboratory results Abnormal [facility] Patients with high levels of Biotin oral intake (ie >5 mg/day) may have falsely decreased Troponin levels. [facility] Interpretation and review of laboratory results Abnormal [facility] Patients with high levels of Biotin oral intake (ie >5 mg/day) may have falsely decreased Troponin levels. [facility] XR Chest Single viewon 08-16 1. Cardiomegaly. 2. No other acute findings. Report Dictated on Electronically Signed By: Justo Milan MD Electronically Signed Date/Time: 08/16/2023 6:42 PM [facility] Patient Name: JUN SNYDER : 1965 Exam Date/Time: 08/16/2023 18:39 Procedure: XR CHEST 1 VIEW Ordering Provider: GRANADOS SHAYA Reason For Exam: CHEST PAIN CHEST PORTABLE CLINICAL INDICATION: CHEST PAIN TECHNIQUE: Portable chest x-ray(s). COMPARISON: September,. FINDINGS: Mild cardiomegaly, stable. Lungs are grossly clear. No significant vascular congestion. No apparent pneumothorax. Bony thorax grossly unremarkable. [facility] Justo Milan MD - 08/16/2023 Patient Name: [...] Electronically Signed Date/Time: 08/16/2023 6:42 PM EST [facility] Radiology Study observation (narrative) [facility] XR Chest Single viewOrdered By: Justo Milan on 08-16-2023 [facility] Work Phone: [employer] BLDon 12-17-2022 Potassium [Moles/Vol] 7.6 mmol/L Critically high 3.7-5.1 [facility] Comment on above: Order Comment: Dominick richards Type: BLOOD SPECIMEN Ordering Facility: [facility] Address: , , Performed By: #### K 1 #### [facility] CLIA [id number] [address] [facility] POTASSIUM BLDon 08-19-2022 Potassium [Moles/Vol] 7.0 mmol/L Critically high 3.7-5.1 [facility] Comment on above: Order Comment: Dominick richards Type: BLOOD SPECIMEN [facility] Address: , , Performed By: #### K 1 #### [facility] CLIA [id number] [address] POTASSIUM BLDon 06-16-2022 Potassium [Moles/Vol] 6.3 mmol/L Critically high 3.7-5.1 [facility] Comment on above: Order Comment: Dominick richards Type: BLOOD SPECIMEN [facility] Address: , , Performed By: #### K 1 #### [facility] CLIA [id number] [address] Hgb Bld-ncon 05-12-2022 Hemoglobin (Bld) [Mass/Vol] 8.4 g/dL Low 13.0-17.0 [facility] Comment on above: Order Comment: Dominick richards Type: BLOOD SPECIMEN [facility] Address: , , Performed By: #### 7 18-7 #### [facility] CLIA [id number] [address] [facility] XA Special Angiography Proce wilder 09-15-2021 XA Special Angiography Procedure Patient Name: JUN SNYDER Special Procedures ACCESSION EXAM DATE/TIME PROCEDURE ORDERING PROVIDER [id number] 09/15/2021 11:10 EST XA Special Angiography MD [...] and the needle was removed. A 3 [place] dilator was advanced over the wire and [...] after procedure termination. Report Dictated on Workstation: [id number] Final Dictating Physician: MD VICENTE CHRISTOPHER Signed Date and Time: 09/15/2021 12:15 pm Signed by: MD VICENTE CHRISTOPHER Transcribed Date and Time: 09/15/2021 12:16 Normal [facility] IR DIALYSIS INJ W/ANGIOPLAST Yon 11-22-2020 IR DIALYSIS INJ W/ANGIOPLASTY Final Report DATE OF EXAM: Nov 22 2020 2:02PM AKMatt 0944 - IR DIALYSIS INJ W/ANGIOPLASTY / [...] This was initially converted to a 6 [place] sheath and later converted to a 7 [place] sheath. Reflux fistulogram for done in several [...] levels with a 6 x 40 mm [place] balloon. This gave minimal improvement. We then exchanged the 6 mm balloon for an 8 x 40 mm [place] balloon. This gave more moderate improvement. At that point we changed the 6 [place] sheath to a 7 [place] sheath and placed a 9 x 40 [...] site of puncture trauma. With the 7 [place] sheath removed pressure was held on the [...] dilation of stenotic lesion as noted above. Production Support Developer: [facility] Transcribe Date/Time: Nov 22 2020 2:07P Dictated by : VINCENT DE LA ROSA MD This examination was interpreted and the report reviewed and electronically signed by: VINCENT DE LA ROSA MD on Nov 22 2020 2:13PM EST Normal [facility] XA SPECIAL ANGIOGRAPHY PROCE [facility] 10-17-2020 Patient Name: GLENN SNYDER Special Procedures ACCESSION EXAM DATE/TIME PROCEDURE ORDERING PROVIDER [id number] 10/17/2020 08:27 EST XA Special Angiography MD [...] KEVIN Transcribed Date and Time: 10/17/2020 1:05 [place], [place] Mike, [facility] Incoming [facility]iology Results From [facility] - 10/17/2020 1:05 PM EST Patient Name: GLENN SNYDER Special Procedures ACCESSION EXAM DATE/TIME PROCEDURE ORDERING PROVIDER [id number] 10/17/2020 08:27 EST XA Special [facility]iography [facility] Procedure BISI Reason For Exam (XA [...] KEVIN Transcribed Date and Time: 10/17/2020 1:05 [place], [place] XA Special Angiography Proce [facility] 10-17-2020 XA Special Angiography Procedure Patient Name: GLNEN SNYDER Special Procedures ACCESSION EXAM DATE/TIME PROCEDURE ORDERING PROVIDER [id number] 10/17/2020 08:27 EST XA Special Angiography MD DA[facility] Procedure BISI Reason For Exam (XA [...] Transcribed Date and Time: 10/17/2020 1:05 Normal [facility] Basic Metabolic Panelon 04-27 Anion gap [Moles/Vol] 17 mmol/L Normal 9-18 [facility] Comment on above: Performed By: #### B MP #### [facility] [address] [place], [place] [address] Calcium [Mass/Vol] 9.1 mg/dL Normal 8.5-10.2 [facility] Comment on above: Performed By: #### B MP #### [facility] [address] [place], [place] [address] Chloride [Moles/Vol] 100 mmol/L Normal 97-105 [facility] Comment on above: Performed By: #### B MP #### [facility] [address] [place], [place] [address] CO2 Blood 18 mmol/L Low 22-30 [facility] Comment on above: Performed By: #### B MP #### [facility] [address] [place], [place] [address] Creatinine [Mass/Vol] 13.39 mg/dL High 0.73-1.22 [facility] Comment on above: Performed By: #### B MP #### [facility] [address] [place], [place] [address] Glucose [Mass/Vol] 83 mg/dL Normal 74-99 [facility] Comment on above: Result Comment: The [place] Diabetes Association (ADA) provides guidance for cutoff [...] Standards of Medical Care in Diabetes 2016; [place] Diabetes Association. Diabetes Care. 2016;39(Suppl 1). Performed By: #### B MP #### [facility] [address] [place], [place] [address] Potassium [Moles/Vol] 4.8 mmol/L Normal 3.7-5.1 [facility] Comment on above: Performed By: #### B MP #### [facility] [address] [place], [place] [address] Sodium [Moles/Vol] 135 mmol/L Low 136-144 [facility] Comment on above: Performed By: #### B MP #### [facility] [address] [place] [address] Urea nitrogen [Mass/Vol] 61 mg/dL High 9-24 [facility] Comment on above: Performed By: #### B MP #### [facility] [address] [place] [address] Hemogramon 05-10-2020 Erythrocyte distribution width (RBC) [Ratio] 12.7 % Normal 11.6-14.4 [facility] Comment on above: Performed By: #### C BC1 #### [facility] [address] [place] [address] Hematocrit (Bld) [Volume fraction] 28.4 % Low 40.1-51.0 [facility] Comment on above: Performed By: #### C BC1 #### [facility] [address] [place] [address] Hemoglobin (Bld) [Mass/Vol] 9.2 g/dL Low 13.7-17.5 [facility] Comment on above: Performed By: #### C BC1 #### [facility] [address] [place] [address] MCH (RBC) [Entitic mass] 30.6 pg Normal 25.7-32.2 [facility] Comment on above: Performed By: #### C BC1 #### [facility] [address] [place] [address] MCHC (RBC) [Mass/Vol] 32.4 % Normal 32.3-36.5 [facility] Comment on above: Performed By: #### C BC1 #### [facility] [address] [place] [address] MCV (RBC) [Entitic vol] 94.4 fL Normal 83.2-95.6 [facility] Comment on above: Performed By: #### C BC1 #### [facility] [address] [place] [address] Platelet mean volume (Bld) [Entitic vol] 10.1 fL Normal 8.7-12.0 [facility] Comment on above: Performed By: #### C BC1 #### [facility] [address] [place], [place] [address] Platelets (Bld) [#/Vol] 278 thou/cmm Normal 141-365 [facility] Comment on above: Performed By: #### C BC1 #### [facility] [address] [place], [place] [address] RBC (Bld) [#/Vol] 3.01 mil/cmm Low 4.63-6.08 [facility] Comment on above: Performed By: #### C BC1 #### [facility] [address] [place], [place] [address] RDW SD 43.8 fl Normal 36.1-45.8 [facility] Comment on above: Performed By: #### C BC1 #### [facility] 1 [place] [id number] WBC (Bld) [#/Vol] 8.58 thou/cmm Normal 4.23-9.07 [facility] Comment on above: Performed By: #### C BC1 #### [facility] [address] [place] [id number] MDRD GFRon 05-10-2020 GFR/1.73 sq M predicted among non-blacks MDRD (S/P/Bld) [Vol rate/Area] 3.89 mL/min/{1.73_m2} Normal >60mL/min/1.7 3m2 [facility] Comment on above: Result Comment: If t he patient is , multiply the result by 1.210. Performed By: #### G FR #### [facility] [address] [place] [address] Protimeon 05-10-2020 INR Coag (PPP) [Relative time] 0.98 {INR} Normal 0.90-1.30 [facility] Comment on above: Result Comment: Conchita min K Antagonist (VKA) Therapeutic Range: INR 2 to 3 (Target INR of 2.5) Note: For patients treated with VKA drugs, such as warfarin, the [place] [employer] 2012 Guideline recommends [...] Chest 2012; 141:7S-47S Randall RA et al. [facility] 2017; 70: 252-289 Performed By: #### P T #### [place] [address] PT Coag (PPP) [Time] 10.6 s Normal 9.7-13.0 [facility] Comment on above: Performed By: #### P T #### [place] [address] Rapid, COVID 19on 03-20-2020 Rapid, COVID 19 Negative Normal Negative [facility] Comment on above: Result Comment: This test has been authorized by the FDA under an Emergency Use Authorization (EUA). Performed By: #### R COVD #### [place] [address] Basic Metabolic Panelon 02-25 Anion gap [Moles/Vol] 14 mmol/L Normal 9-18 [facility] Comment on above: Performed By: #### B MP #### [place] [id number] Calcium [Mass/Vol] 10.0 mg/dL Normal 8.5-10.2 [facility] Comment on above: Performed By: #### B MP #### [place] [id number] Chloride [Moles/Vol] 95 mmol/L Low 97-105 [facility] Comment on above: Performed By: #### B MP #### [place] [id number] CO2 Blood 26 mmol/L Normal 22-30 [facility] Comment on above: Performed By: #### B MP #### [facility] [address] [place], [place] [address] Creatinine [Mass/Vol] 9.29 mg/dL High 0.73-1.22 [facility] Comment on above: Performed By: #### B MP #### [facility] [address] [place], [place] [address] Glucose [Mass/Vol] 84 mg/dL Normal 74-99 [facility] Comment on above: Result Comment: The [place] Diabetes Association (ADA) provides guidance for cutoff [...] Standards of Medical Care in Diabetes 2016; [place] Diabetes Association. Diabetes Care. 2016;39(Suppl 1). Performed By: #### B MP #### [facility] [address] [place], [place] [address] Potassium [Moles/Vol] 3.7 mmol/L Normal 3.7-5.1 [facility] Comment on above: Performed By: #### B MP #### [facility] [address] [place], [place] [address] Sodium [Moles/Vol] 135 mmol/L Low 136-144 [facility] Comment on above: Performed By: #### B MP #### [facility] [address] [place], [place] [address] Urea nitrogen [Mass/Vol] 32 mg/dL High 9-24 [facility] Comment on above: Performed By: #### B MP #### [facility] [address] [place], [place] [address] Hematologyon 03-13-2020 INR Coag (PPP) [Relative time] 0.96 {INR} 0.90 - 1.30 [facility] PT Coag (PPP) [Time] 10.4 s 9.7 - 1 3.0 sec [facility] Hematocrit (Bld) [Volume fraction] 30.6 % Low 40.1 - 51.0 % [facility] Hemoglobin (Bld) [Mass/Vol] 10.8 g/dL Low 13.7 - 17.5 g/dL [facility] MCH (RBC) [Entitic mass] 31.0 pg 25. 7 - 32.2 pg [facility] MCV (RBC) [Entitic vol] 87.9 fL 83.2 - 95.6 fl [facility] Platelets (Bld) [#/Vol] 269 thou/cmm 141 - 365 thou/cmm [facility] RBC (Bld) [#/Vol] 3.48 mil/cmm Low 4.63 - 6.0 8 mil/cmm [facility] WBC (Bld) [#/Vol] 10.79 thou/cmm High 4.23 - 9 .07 thou/cmm [facility] Hemogramon 03-13-2020 Erythrocyte distribution width (RBC) [Ratio] 13.2 % Normal 11.6-14.4 [facility] Comment on above: Performed By: #### C BC1 #### [facility] [address] [place], [place] [address] Hematocrit (Bld) [Volume fraction] 30.6 % Low 40.1-51.0 [facility] Comment on above: Performed By: #### C BC1 #### [facility] [address] [place], [place] [address] Hemoglobin (Bld) [Mass/Vol] 10.8 g/dL Low 13.7-17.5 [facility] Comment on above: Performed By: #### C BC1 #### [facility] [address] [place], [place] [address] MCH (RBC) [Entitic mass] 31.0 pg Normal 25.7-32.2 [facility] Comment on above: Performed By: #### C BC1 #### [facility] [address] [place], [place] [address] MCHC (RBC) [Mass/Vol] 35.3 % Normal 32.3-36.5 [facility] Comment on above: Performed By: #### C BC1 #### [facility] [address] [place], [place] [address] MCV (RBC) [Entitic vol] 87.9 fL Normal 83.2-95.6 [facility] Comment on above: Performed By: #### C BC1 #### [facility] [address] [place], [place] [address] Platelet mean volume (Bld) [Entitic vol] 10.1 fL Normal 8.7-12.0 [facility] Comment on above: Performed By: #### C BC1 #### [facility] [address] [place], [place] [address] Platelets (Bld) [#/Vol] 269 thou/cmm Normal 141-365 [facility] Comment on above: Performed By: #### C BC1 #### [facility] [address] [place] [address] RBC (Bld) [#/Vol] 3.48 mil/cmm Low 4.63-6.08 [facility] Comment on above: Performed By: #### C BC1 #### [facility] [address] [place] [address] RDW SD 42.3 fl Normal 36.1-45.8 [facility] Comment on above: Performed By: #### C BC1 #### [facility] [address] [place], [place] [address] WBC (Bld) [#/Vol] 10.79 thou/cmm High 4.23-9.07 [facility] Comment on above: Performed By: #### C BC1 #### [facility] [address] [place], [place] [address] MDRD GFRon 03-13-2020 GFR/1.73 sq M predicted among non-blacks MDRD (S/P/Bld) [Vol rate/Area] 5.94 mL/min/{1.73_m2} Normal >60mL/min/1.7 3m2 [facility] Comment on above: Result Comment: If t he patient is , multiply the result by 1.210. Performed By: #### G FR #### [facility] [address] [place] [address] Metabolic Panelon 03-13-2020 Anion gap [Moles/Vol] 14 mmol/L 9 - 18 mmol/L [facility] Calcium [Mass/Vol] 10.0 mg/dL 8.5 - 10. 2 mg/dL [facility] Chloride [Moles/Vol] 95 mmol/L Low 97 - 10 5 mmol/L [facility] CO2 [Moles/Vol] 26 mmol/L 22 - 30 mmol/L [facility] Creatinine [Mass/Vol] 9.29 mg/dL High 0.73 - 1.22 mg/dL [facility] Glucose [Mass/Vol] 84 mg/dL 74 - 99 mg/dL [facility] Potassium [Moles/Vol] 3.7 mmol/L 3.7 - 5.1 mmol/L [facility] Sodium [Moles/Vol] 135 mmol/L Low 136 - 144 mmol/L [facility] Urea nitrogen [Mass/Vol] 32 mg/dL High 9 - 24 mg/d L [facility] Otheron 03-13-2020 GFR/1.73 sq M.predicted MDRD (S/P/Bld) [Vol rate/Area] 5.94 mL/min/{1.73_m2} >60mL/min/1.7 3m2 [facility] Erythrocyte distribution width (RBC) [Entitic vol] 42.3 fL 36.1 - 45.8 fl [facility] Erythrocyte distribution width (RBC) [Ratio] 13.2 % 11.6 - 14.4 % [facility] MCHC (RBC) [Mass/Vol] 35.3 % 32.3 - 36.5 % [facility] Platelet mean volume (Bld) [Entitic vol] 10.1 fL 8.7 - 12.0 fl [facility] Protimeon 03-13-2020 INR Coag (PPP) [Relative time] 0.96 {INR} Normal 0.90-1.30 [facility] Comment on above: Result Comment: Conchita min K Antagonist (VKA) Therapeutic Range: INR 2 to 3 (Target INR of 2.5) Note: For patients treated with VKA drugs, such as warfarin, the [place] [employer] 2012 Guideline recommends [...] Chest 2012; 141:7S-47S Randall PATTON et al. [facility] 2017; 70: 252-289 Performed By: #### P T #### [facility] [address] [place] [address] PT Coag (PPP) [Time] 10.4 s Normal 9.7-13.0 [facility] Comment on above: Performed By: #### P T #### [place] [address] US VEIN MAPPING UPPER BILon 02-13-2020 US VEIN MAPPING UPPER HO * * *Final Report* * * DATE OF EXAM: Feb 13 2020 2:22PM [facility] 1085 - VEIN MAPPING UPPER HO / PROCEDURE REASON: [...] unobstructed. There is no deep venous thrombosis. 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 4 mg/dL [facility] Work Phone: Chloride [Moles/Vol] 93 mmol/L Low 98 - 10 7 mmol/L [facility] Work Phone: CO2 [Moles/Vol] 24 mmol/L 22 - 30 mmol/L [facility] Work Phone: [phone] Creatinine [Mass/Vol] 9.99 mg/dL High 0.52 - 1.25 mg/dL [facility] Work Phone: [phone] EGFR IF NonAfrican [place] 5.5 mL/min >60 [facility] Work Phone: Comment on above: Source- MDRD equatio n with creatinine calibration to IDMS(NKDEP) eGFR not recommended for drug dose adjustment GFR/1.73 sq M.predicted among blacks MDRD (S/P/Bld) [Vol rate/Area] 6.6 mL/min/{1.73_m2} >60 [facility] Work Phone: [phone] Glucose [Mass/Vol] 103 mg/dL High 70 - 100 mg/dL [facility] Work Phone: Potassium [Moles/Vol] 4.5 mmol/L 3.5 - 5.1 mmol/L [facility] Work Phone: [phone] Sodium [Moles/Vol] 135 mmol/L 135 - 145 mmol/L [facility] Work Phone: [phone] Urea nitrogen [Mass/Vol] 49 mg/dL High 7 - 20 mg/d L [facility] Work Phone: [phone] Auto DifferentialOrdered By: Darell Sanches on 10-27-2019 Absolute Baso # 0.1 10*3/uL 0 - 0.2 10*3/uL [facility] Work Phone: [phone] Absolute Neut # 6.6 10*3/uL 1.8 - 7 10*3/uL [facility] Work Phone: [phone] Basophils/100 WBC (Bld) 0.7 % 0 - 2 % S [facility] Work Phone: Eosinophils (Bld) [#/Vol] 0.5 10*3/uL 0 - 0.5 10*3/uL [facility] Work Phone: [phone] Eosinophils/100 WBC (Bld) 4.9 % 1 - 6 % [facility] Work Phone: [phone] Erythrocyte distribution width (RBC) [Ratio] 14.0 % 11.5 - 14.5 % [facility] Work Phone: [phone] Granulocytes/100 WBC (Bld) 62.2 % 40 - 80 % [facility] Work Phone: [phone] Hematocrit (Bld) [Volume fraction] 28.3 % Low 40 - 52 % [facility] Work Phone: [phone] Hemoglobin (Bld) [Mass/Vol] 9.5 g/dL Low 13 - 18 g/dL [facility] Work Phone: 1 Lymphocytes (Bld) [#/Vol] 2.0 10*3/uL 1 - 4.3 10*3/uL [facility] Work Phone: 1 Lymphocytes/100 WBC (Bld) 18.8 % Low 20 - 40 % [facility] Work Phone: 1 MCH (RBC) [Entitic mass] 29.1 pg 26 - 34 pg [facility] Work Phone: 1 MCHC 33.6 % 32 - 36 % [facility] Work Phone: 1 MCV (RBC) [Entitic vol] 86.7 fL 80 - 98 fL [facility] [employer] Work Phone: 1 Monocytes (Bld) [#/Vol] 1.4 10*3/uL High 0 - 0.8 10*3/uL [facility] Work Phone: 1 Monocytes/100 WBC (Bld) 13.4 % High 2 - 10 % [facility] [employer] Work Phone: 1 Platelet mean volume (Bld) [Entitic vol] 8.2 fL 7.4 - 10.4 fL [facility] Work Phone: 1 Platelets (Bld) [#/Vol] 259 10*3/uL 140 - 440 10*3/uL [facility] Work Phone: 1 RBC (Bld) [#/Vol] 3.27 10*6/uL Low 4.4 - 5.9 10*6/uL [facility] Work Phone: 1 WBC (Bld) [#/Vol] 10.6 10*3/uL 3.6 - 10.7 10*3/uL [facility] Work Phone: [phone] MAGNESIUMOrdered By: Darell Sanches on 10-27-2019 Magnesium [Mass/Vol] 2.6 mg/dL High 1.6 - 2 .3 mg/dL [facility] Work Phone: [phone] Panel InformationOrdered By: Darell Sanches on 10-27-2019 Interpretation and review of laboratory results Abnormal [facility] Work Phone: [phone] Test Performed by [facility], [address] [place], [place] [address] [facility] Work Phone: 1 PhosphorusOrdered By: Darell Sanches on 10-27-2019 Phosphate [Mass/Vol] 9.9 mg/dL High 2.5 - 4 .5 mg/dL [facility] Work Phone: 1 Basic Metabolic PanelOrdered By: Darell Sanches on 10-26-2019 Anion gap [Moles/Vol] 14 mmol/L [facility] Work Phone: 1 Calcium [Mass/Vol] 9.0 mg/dL 8.4 - 10. 4 mg/dL [facility] Work Phone: Chloride [Moles/Vol] 94 mmol/L Low 98 - 10 7 mmol/L [facility] Work Phone: 1 CO2 [Moles/Vol] 29 mmol/L 22 - 30 mmol/L [facility] Work Phone: Creatinine [Mass/Vol] 7.06 mg/dL High 0.52 - 1.25 mg/dL [facility] Work Phone: EGFR IF NonAfrican [place] 8.2 mL/min >60 [facility] Work Phone: Comment on above: Source- MDRD equatio n with creatinine calibration to IDMS(NKDEP) eGFR not recommended for drug dose adjustment GFR/1.73 sq M.predicted among blacks MDRD (S/P/Bld) [Vol rate/Area] 9.9 mL/min/{1.73_m2} >60 [facility] Work Phone: Glucose [Mass/Vol] 95 mg/dL 70 - 100 mg/dL [facility] Work Phone: Potassium [Moles/Vol] 4.2 mmol/L 3.5 - 5.1 mmol/L [facility] Work Phone: Sodium [Moles/Vol] 136 mmol/L 135 - 145 mmol/L [facility] Work Phone: Urea nitrogen [Mass/Vol] 27 mg/dL High 7 - 20 mg/d L [facility] Work Phone: [phone] CBC Auto DifferentialOrdered By: Darell Sanches on 10-26-2019 Absolute Baso # 0.1 10*3/uL 0 - 0.2 10*3/uL [facility] Work Phone: [phone] Absolute Neut # 7.1 10*3/uL High 1.8 - 7 10*3/uL [facility] Work Phone: [phone] Basophils/100 WBC (Bld) 0.8 % 0 - 2 % [facility] [employer] Work Phone: Eosinophils (Bld) [#/Vol] 0.5 10*3/uL 0 - 0.5 10*3/uL [facility] Work Phone: Eosinophils/100 WBC (Bld) 4.7 % 1 - 6 % [facility] Work Phone: Erythrocyte distribution width (RBC) [Ratio] 13.9 % 11.5 - 14.5 % [facility] Work Phone: Granulocytes/100 WBC (Bld) 63.9 % 40 - 80 % [facility] Work Phone: Hematocrit (Bld) [Volume fraction] 29.2 % Low 40 - 52 % [facility] Work Phone: Hemoglobin (Bld) [Mass/Vol] 9.9 g/dL Low 13 - 18 g/dL [facility] Work Phone: [phone] Interpretation and review of laboratory results Abnormal [facility] Work Phone: Lymphocytes (Bld) [#/Vol] 2.0 10*3/uL 1 - 4.3 10*3/uL [facility] Work Phone: Lymphocytes/100 WBC (Bld) 17.8 % Low 20 - 40 % [facility] Work Phone: MCH (RBC) [Entitic mass] 29.5 pg 26 - 34 pg [employer] Work Phone: MCHC 33.9 % 32 - 36 % [facility] Work Phone: MCV (RBC) [Entitic vol] 87.0 fL 80 - 98 fL S [facility] Work Phone: Monocytes (Bld) [#/Vol] 1.4 10*3/uL High 0 - 0.8 10*3/uL [facility] Work Phone: Monocytes/100 WBC (Bld) 12.8 % High 2 - 10 % [facility] Work Phone: Platelet mean volume (Bld) [Entitic vol] 8.0 fL 7.4 - 10.4 fL [facility] Work Phone: Platelets (Bld) [#/Vol] 262 10*3/uL 140 - 440 10*3/uL [facility] Work Phone: RBC (Bld) [#/Vol] 3.36 10*6/uL Low 4.4 - 5.9 10*6/uL [facility] Work Phone: WBC (Bld) [#/Vol] 11.0 10*3/uL High 3.6 - 10.7 10*3/uL [facility] Work Phone: Test Performed by [facility], [address] [place] [id number] [facility] Work Phone: Culture Blood #1Ordered By: Brett Encarnacion on 10-26-2019 Blood Culture, Routine [employer] testing is not routinely performed on Gram positive bacilli. If a Listeria infection is highly suspected, contact the Microbiology laboratory [phone] Abnormal [facility] Work Phone: Blood Culture, Routine Propionibacterium acnes Abnormal [facility] Work Phone: Blood Culture, Routine Isolated: Contamination likely unless additional blood culture sets are found to be positive with the same organism. [facility] Work Phone: Interpretation and review of laboratory results Abnormal [facility] Work Phone: Test Performed by [facility] [address] Specimen Source Comment:Blood [facility] Work Phone: MAGNESIUMOrdered By: Darell Sanches on 10-26-2019 Magnesium [Mass/Vol] 2.2 mg/dL 1.6 - 2 .3 mg/dL [facility] Work Phone: No Panel InformationOrdered By: Darell Sanches on 10-26-2019 Interpretation and review of laboratory results Abnormal [facility] Work Phone: Test Performed by [facility], [address] [place], [place] [address] [facility] Work Phone: PhosphorusOrdered By: Darell Sanches on 10-26-2019 Phosphate [Mass/Vol] 7.1 mg/dL High 2.5 - 4 .5 mg/dL [facility] Work Phone: US BIOPSY RENAL RIGHT PERCOr dered By: Cindy Patel on 10-26-2019 Patient Name: GLENN SNYDER ---Ultrasound--- Exam Date/Time 10/26/2019 10:57:27 EST Exam US Biopsy Renal Right Ordering Physician MD DA, CINDY MATHEWS Accession Number [id number] CPT4 Codes 80804 (), 54547 () Reason For Exam renal failure Report ULTRASOUND GUIDED RIGHT LOWER POLE KIDNEY BIOPSY Reasons for examination: Acute renal failure. After review of prior studies, patient interview and examination, the risks, benefits, and alternatives of the biopsy procedure were discussed, informed consent was obtained. Special Services Agent US scans of the right kidney were [...] RICHARD Transcribed Date and Time: 10/26/2019 12:05 [facility] Work Phone: [facility] Results From [facility] - 10/26/2019 12:05 PM EST Patient Name: GLENN SNYDER ---Ultrasound--- Exam Date/Time 10/26/2019 10:57:27 EST Exam US Biopsy Renal Right Ordering Physician MD DA, [facility] Accession Number [id number] CPT4 Codes 50314 (), 56020 () Reason For Exam renal failure Report ULTRASOUND GUIDED RIGHT LOWER POLE KIDNEY BIOPSY Reasons for examination: Acute renal failure. After review of prior studies, patient interview and examination, the risks, benefits, and alternatives of the biopsy procedure were discussed, informed consent was obtained. Special Services Agent US scans of the right kidney were [...] RICHARD Transcribed Date and Time: 10/26/2019 12:05 [facility] Work Phone: XA SPECIAL ANGIOGRAPHY PROCE DUREOrdered By: Jeana Pedraza on 10-26-2019 Patient Name: GLENN SNYDER ---Special Procedures--- Exam Date/Time 10/26/2019 15:01:32 EST Exam XA Special Angiography Procedure Ordering Physician MD KEILA, JEANA Accession Number [id number] Reason For Exam non tunneled to tunneled cath Report FLUOROSCOPIC AND ULTRASOUND-GUIDED TUNNELED DIALYSIS CATHETER PLACEMENT REMOVAL OF RIGHT INTERNAL JUGULAR TEMPORARY HEMODIALYSIS CATHETER CLINICAL HISTORY: Need for jail central venous access Fluoroscopy time: Acute renal [...] Phone: Mike, [facility] Incoming Radiology Results From [facility] - 10/26/2019 3:29 PM EST Patient Name: GLENN SNYDER ---Special Procedures--- Exam Date/Time 10/26/2019 15:01:32 EST Exam XA Special Angiography Procedure Ordering Physician MD KEILA, AZIZ Accession Number [id number] Reason For Exam non tunneled to tunneled cath Report FLUOROSCOPIC AND ULTRASOUND-GUIDED TUNNELED DIALYSIS CATHETER PLACEMENT REMOVAL OF RIGHT INTERNAL JUGULAR TEMPORARY HEMODIALYSIS CATHETER 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 4 mg/dL [facility] Work Phone: [phone] Chloride [Moles/Vol] 95 mmol/L Low 98 - 10 7 mmol/L [facility] Work Phone: [phone] CO2 [Moles/Vol] 26 mmol/L 22 - 30 mmol/L [facility] Work Phone: [phone] Creatinine [Mass/Vol] 9.71 mg/dL High 0.52 - 1.25 mg/dL [facility] Work Phone: [phone] IF NonAfrican Eritrean 5.7 mL/min >60 [facility] Work Phone: [phone] Comment on above: Source- MDRD equatio n with creatinine calibration to IDMS(NKDEP) eGFR not recommended for drug dose adjustment GFR/1.73 sq M.predicted among blacks MDRD (S/P/Bld) [Vol rate/Area] 6.9 mL/min/{1.73_m2} >60 [facility] Work Phone: [phone] Glucose [Mass/Vol] 96 mg/dL 70 - 100 mg/dL [facility] Work Phone: [phone] Potassium [Moles/Vol] 4.3 mmol/L 3.5 - 5.1 mmol/L [facility] Work Phone: [phone] Sodium [Moles/Vol] 135 mmol/L 135 - 145 mmol/L [facility] Work Phone: [phone] Urea nitrogen [Mass/Vol] 39 mg/dL High 7 - 20 mg/d L [facility] Work Phone: [phone] Auto DifferentialOrdered By: Darell Sanches on 10-25-2019 Absolute Baso # 0.1 10*3/uL 0 - 0.2 10*3/uL [facility] Work Phone: [phone] Absolute Neut # 6.7 10*3/uL 1.8 - 7 10*3/uL [facility] Work Phone: [phone] Basophils/100 WBC (Bld) 0.9 % 0 - 2 % S [facility] Work Phone: [phone] Eosinophils (Bld) [#/Vol] 0.5 10*3/uL 0 - 0.5 10*3/uL [facility] Work Phone: [phone] Eosinophils/100 WBC (Bld) 4.5 % 1 - 6 % [facility] Work Phone: [phone] Erythrocyte distribution width (RBC) [Ratio] 13.8 % 11.5 - 14.5 % [facility] Work Phone: 1 Granulocytes/100 WBC (Bld) 60.1 % 40 - 80 % [facility] Work Phone: Hematocrit (Bld) [Volume fraction] 28.3 % Low 40 - 52 % [facility] Work Phone: Hemoglobin (Bld) [Mass/Vol] 9.7 g/dL Low 13 - 18 g/dL [facility] Work Phone: 1 Interpretation and review of laboratory results Abnormal [facility] Work Phone: Lymphocytes (Bld) [#/Vol] 2.6 10*3/uL 1 - 4.3 10*3/uL [facility] Work Phone: 22 Lymphocytes/100 WBC (Bld) 22.9 % 20 - 40 % [facility] Work Phone: 1 MCH (RBC) [Entitic mass] 30.0 pg 26 - 34 pg [facility] Work Phone: MCHC 34.3 % 32 - 36 % [facility] Work Phone: MCV (RBC) [Entitic vol] 87.3 fL 80 - 98 fL [facility] Work Phone: Monocytes (Bld) [#/Vol] 1.3 10*3/uL High 0 - 0.8 10*3/uL [facility] Work Phone: 1 22 Monocytes/100 WBC (Bld) 11.6 % High 2 - 10 % [facility] [employer] Work Phone: Platelet mean volume (Bld) [Entitic vol] 8.1 fL 7.4 - 10.4 fL [facility] Work Phone: 22 Platelets (Bld) [#/Vol] 252 10*3/uL 140 - 440 10*3/uL [facility] Work Phone: 22 RBC (Bld) [#/Vol] 3.24 10*6/uL Low 4.4 - 5.9 10*6/uL [facility] Work Phone: 1 WBC (Bld) [#/Vol] 11.2 10*3/uL High 3.6 - 10.7 10*3/uL [facility] Work Phone: 1 Test Performed by [facility], [facility] [address] Work Phone: MAGNESIUMOrdered By: Darell Sanches on 10-25-2019 Magnesium [Mass/Vol] 2.2 mg/dL 1.6 - 2 .3 mg/dL [facility] Work Phone: No Panel InformationOrdered By: Darell Sanches on 10-25-2019 Interpretation and review of laboratory results Abnormal [facility] Work Phone: 1 Test Performed by [facility], [facility] [address] Work Phone: PhosphorusOrdered By: Darell Sanches on 10-25-2019 Phosphate [Mass/Vol] 9.3 mg/dL High 2.5 - 4 .5 mg/dL [facility] Work Phone: APTTOrdered By: Cindy Patel on 10-24-2019 aPTT Coag (Bld) [Time] 28.5 s 20 - 30.[address] [facility] Work Phone: Comment on above: NOTE: The therapeuti c time for Heparin anticoagulation, based on Xa activity inhibition, is an APTT of 46-80 seconds. Basic Metabolic PanelOrdered By: Darell Sanches on 10-24-2019 Anion gap [Moles/Vol] 10 mmol/L [facility] Work Phone: Calcium [Mass/Vol] 8.6 mg/dL 8.4 - 10. 4 mg/dL [facility] Work Phone: Chloride [Moles/Vol] 94 mmol/L Low 98 - 10 7 mmol/L [facility] Work Phone: CO2 [Moles/Vol] 31 mmol/L High 22 - 30 mmol/L [facility] Work Phone: [phone] Creatinine [Mass/Vol] 7.11 mg/dL High 0.52 - 1.25 mg/dL [facility] Work Phone: [phone] EGFR IF NonAfrican Eritrean 8.1 mL/min >60 [facility] Work Phone: [phone] Comment on above: Source- MDRD equatio n with creatinine calibration to IDMS(NKDEP) eGFR not recommended for drug dose adjustment GFR/1.73 sq M.predicted among blacks MDRD (S/P/Bld) [Vol rate/Area] 9.8 mL/min/{1.73_m2} >60 [facility] Work Phone: [phone] Glucose [Mass/Vol] 93 mg/dL 70 - 100 mg/dL [facility] Work Phone: [phone] Potassium [Moles/Vol] 4.1 mmol/L 3.5 - 5.1 mmol/L [facility] Work Phone: [phone] Sodium [Moles/Vol] 135 mmol/L 135 - 145 mmol/L [facility] Work Phone: [phone] Urea nitrogen [Mass/Vol] 28 mg/dL High 7 - 20 mg/d L [facility] Work Phone: [phone] Auto DifferentialOrdered By: Darell Sanches on 10-24-2019 Absolute Baso # 0.1 10*3/uL 0 - 0.2 10*3/uL [facility] Work Phone: [phone] Absolute Neut # 6.2 10*3/uL 1.8 - 7 10*3/uL [facility] Work Phone: [phone] Basophils/100 WBC (Bld) 0.7 % 0 - 2 % [facility] Work Phone: [phone] Eosinophils (Bld) [#/Vol] 0.4 10*3/uL 0 - 0.5 10*3/uL [facility] Work Phone: [phone] Eosinophils/100 WBC (Bld) 3.7 % 1 - 6 % [facility] Work Phone: [phone] Erythrocyte distribution width (RBC) [Ratio] 14.0 % 11.5 - 14.5 % [facility] Work Phone: Granulocytes/100 WBC (Bld) 63.8 % 40 - 80 % [facility] Work Phone: 1 Hematocrit (Bld) [Volume fraction] 27.0 % Low 40 - 52 % [facility] Work Phone: 1) Hemoglobin (Bld) [Mass/Vol] 9.2 g/dL Low 13 - 18 g/dL [facility] Work Phone: 1 Interpretation and review of laboratory results Abnormal [facility] Work Phone: [phone] Lymphocytes (Bld) [#/Vol] 1.8 10*3/uL 1 - 4.3 10*3/uL [facility] Work Phone: 1) 22 Lymphocytes/100 WBC (Bld) 18.8 % Low 20 - 40 % [facility] Work Phone: 1) MCH (RBC) [Entitic mass] 29.6 pg 26 - 34 pg [facility] Work Phone: 1) MCHC 34.1 % 32 - 36 % [facility] Work Phone: 1) MCV (RBC) [Entitic vol] 86.9 fL 80 - 98 fL [facility] Work Phone: 1) Monocytes (Bld) [#/Vol] 1.3 10*3/uL High 0 - 0.8 10*3/uL [facility] Work Phone: 1) 22 Monocytes/100 WBC (Bld) 13.0 % High 2 - 10 % [facility] Work Phone: 1) Platelet mean volume (Bld) [Entitic vol] 8.4 fL 7.4 - 10.4 fL [facility] Work Phone: 1() 22 Platelets (Bld) [#/Vol] 245 10*3/uL 140 - 440 10*3/uL [facility] Work Phone: 1) 22 RBC (Bld) [#/Vol] 3.10 10*6/uL Low 4.4 - 5.9 10*6/uL [facility] Work Phone: 1) 22 WBC (Bld) [#/Vol] 9.7 10*3/uL 3.6 - 10.7 10*3/uL [facility] Work Phone: 1 Culture Blood #1Ordered By: Brett Encarancion on 10-24-2019 Blood Culture, Routine No growth at 5 days. [facility] Work Phone: Test Performed by [facility], [address] [place] [id number] Specimen Source Comment:Blood [facility] Work Phone: Glomerular Basement Membrane (GBM) Antibody IgGOrdered By: Randolph Euceda on 10-24-2019 GBM Ab, IgG (IFA) Negative Negative NA [facility] Work Phone: Comment on above: INTERPRETIVE [...] biopsy. Test developed and characteristics determined by [facility]. See Compliance Statement D: Chujian.[employer]/CS Performed by [facility], [address] [place] [id number] [email or web address], Malvin Slade MD, Lab. Director MAGNESIUMOrdered By: Darell Sanches on 10-24-2019 Magnesium [Mass/Vol] 2.1 mg/dL 1.6 - 2 .3 mg/dL [facility] Work Phone: No Panel InformationOrdered By: Darell Sanches on 10-24-2019 Interpretation and review of laboratory results Abnormal [facility] Work Phone: Test Performed by [facility], [address] [place], [place] [address] [facility] Work Phone: Test Performed by [facility], [address] [place], [place] [id number] [place] [address] Work Phone: PhosphorusOrdered By: Darell Sanches on 10-24-2019 Phosphate [Mass/Vol] 5.8 mg/dL High 2.5 - 4 .5 mg/dL [facility] Work Phone: Protime-INROrdered By: Darren Patel on 10-24-2019 INR Coag (PPP) [Relative time] 1.1 {INR} [facility] Work Phone: Comment on above: Recommended Anticoag [...] - 12 s [facility] Work Phone: Comment on above: . Basic Metabolic PanelOrdered By: Darell Sanches on 10-23-2019 Anion gap [Moles/Vol] 17 mmol/L [facility] Work Phone: [phone] Calcium [Mass/Vol] 8.6 mg/dL 8.4 - 10. 4 mg/dL [facility] Work Phone: Chloride [Moles/Vol] 94 mmol/L Low 98 - 10 7 mmol/L [facility] Work Phone: CO2 [Moles/Vol] 24 mmol/L 22 - 30 mmol/L [facility] Work Phone: [phone] Creatinine [Mass/Vol] 11.03 mg/dL High 0.52 - 1.25 mg/dL [facility] Work Phone: [phone] EGFR IF NonAfrican Eritrean 4.9 mL/min >60 [facility] Work Phone: Comment on above: Source- MDRD equatio n with creatinine calibration to IDMS(NKDEP) eGFR not recommended for drug dose adjustment GFR/1.73 sq M.predicted among blacks MDRD (S/P/Bld) [Vol rate/Area] 5.9 mL/min/{1.73_m2} >60 [facility] Work Phone: Glucose [Mass/Vol] 97 mg/dL 70 - 100 mg/dL [facility] Work Phone: Potassium [Moles/Vol] 3.9 mmol/L 3.5 - 5.1 mmol/L [facility] Work Phone: [phone] Sodium [Moles/Vol] 135 mmol/L 135 - 145 mmol/L [facility] Work Phone: 1 Urea nitrogen [Mass/Vol] 61 mg/dL High 7 - 20 mg/d L [facility] Work Phone: [phone] CBC Auto DifferentialOrdered By: Darell Sanches on 10-23-2019 Absolute Baso # 0.1 10*3/uL 0 - 0.2 10*3/uL [facility] Work Phone: 1 Absolute Neut # 7.1 10*3/uL High 1.8 - 7 10*3/uL [facility] Work Phone: 1 Basophils/100 WBC (Bld) 1.0 % 0 - 2 % [facility] Work Phone: Eosinophils (Bld) [#/Vol] 0.5 10*3/uL 0 - 0.5 10*3/uL [facility] Work Phone: Eosinophils/100 WBC (Bld) 4.7 % 1 - 6 % [facility] Work Phone: 1 Erythrocyte distribution width (RBC) [Ratio] 13.8 % 11.5 - 14.5 % [facility] Work Phone: Granulocytes/100 WBC (Bld) 65.3 % 40 - 80 % [facility] Work Phone: Hematocrit (Bld) [Volume fraction] 27.6 % Low 40 - 52 % [facility] Work Phone: Hemoglobin (Bld) [Mass/Vol] 9.5 g/dL Low 13 - 18 g/dL [facility] Work Phone: Interpretation and review of laboratory results Abnormal [facility] Work Phone: Lymphocytes (Bld) [#/Vol] 1.9 10*3/uL 1 - 4.3 10*3/uL [facility] Work Phone: 22 Lymphocytes/100 WBC (Bld) 17.3 % Low 20 - 40 % [facility] Work Phone: MCH (RBC) [Entitic mass] 29.7 pg 26 - 34 pg [facility] Work Phone: 1 MCHC 34.3 % 32 - 36 % [facility] Work Phone: 1 MCV (RBC) [Entitic vol] 86.6 fL 80 - 98 fL S [facility] Work Phone: Monocytes (Bld) [#/Vol] 1.3 10*3/uL High 0 - 0.8 10*3/uL [facility] Work Phone: 1 Monocytes/100 WBC (Bld) 11.7 % High 2 - 10 % [facility] Work Phone: Platelet mean volume (Bld) [Entitic vol] 7.7 fL 7.4 - 10.4 fL [facility] Work Phone: Platelets (Bld) [#/Vol] 248 10*3/uL 140 - 440 10*3/uL [facility] Work Phone: RBC (Bld) [#/Vol] 3.18 10*6/uL Low 4.4 - 5.9 10*6/uL [facility] Work Phone: WBC (Bld) [#/Vol] 10.8 10*3/uL High 3.6 - 10.7 10*3/uL [facility] Work Phone: 1 Test Performed by [facility], [address] [address] [facility] Work Phone: MAGNESIUMOrdered By: Darell Sanches on 10-23-2019 Magnesium [Mass/Vol] 2.1 mg/dL 1.6 - 2 .3 mg/dL [facility] Work Phone: No Panel InformationOrdered By: Darell Sanches on 10-23-2019 Interpretation and review of laboratory results Abnormal [facility] Work Phone: Test Performed by [facility], [address] [place], [place] [address] [facility] Work Phone: PhosphorusOrdered By: Darell Sanches on 10-23-2019 Phosphate [Mass/Vol] 9.5 mg/dL High 2.5 - 4 .5 mg/dL [facility] Work Phone: [phone] Basic Metabolic PanelOrdered By: Delon Jessica on 10-22-2019 Anion gap [Moles/Vol] 14 mmol/L [facility] Work Phone: [phone] Calcium [Mass/Vol] 8.9 mg/dL 8.4 - 10. 4 mg/dL [facility] Work Phone: 1 Chloride [Moles/Vol] 95 mmol/L Low 98 - 10 7 mmol/L [facility] Work Phone: CO2 [Moles/Vol] 28 mmol/L 22 - 30 mmol/L [facility] Work Phone: [phone] Creatinine [Mass/Vol] 8.75 mg/dL High 0.52 - 1.25 mg/dL [facility] Work Phone: [phone] IF NonAfrican Eritrean 6.4 mL/min >60 [facility] Work Phone: [phone] Comment on above: Source- MDRD equatio n with creatinine calibration to IDMS(NKDEP) eGFR not recommended for drug dose adjustment GFR/1.73 sq M.predicted among blacks MDRD (S/P/Bld) [Vol rate/Area] 7.7 mL/min/{1.73_m2} >60 [facility] Work Phone: [phone] Glucose [Mass/Vol] 94 mg/dL 70 - 100 mg/dL [facility] Work Phone: Potassium [Moles/Vol] 4.3 mmol/L 3.5 - 5.1 mmol/L [facility] Work Phone: [phone] Sodium [Moles/Vol] 137 mmol/L 135 - 145 mmol/L [facility] Work Phone: [phone] Urea nitrogen [Mass/Vol] 53 mg/dL High 7 - 20 mg/d L [facility] Work Phone: [phone] CBC Auto DifferentialOrdered By: Delon Jessica on 10-22-2019 Absolute Baso # 0.1 10*3/uL 0 - 0.2 10*3/uL [facility] Work Phone: [phone] Absolute Neut # 5.9 10*3/uL 1.8 - 7 10*3/uL [facility] Work Phone: [phone] 22 Basophils/100 WBC (Bld) 0.9 % 0 - 2 % S [facility] Work Phone: Eosinophils (Bld) [#/Vol] 0.3 10*3/uL 0 - 0.5 10*3/uL [facility] Work Phone: 1 22 Eosinophils/100 WBC (Bld) 3.0 % 1 - 6 % [facility] Work Phone: 1 22 Erythrocyte distribution width (RBC) [Ratio] 14.2 % 11.5 - 14.5 % [facility] Work Phone: 1 Granulocytes/100 WBC (Bld) 63.0 % 40 - 80 % [facility] Work Phone: Hematocrit (Bld) [Volume fraction] 27.7 % Low 40 - 52 % [facility] Work Phone: Hemoglobin (Bld) [Mass/Vol] 9.4 g/dL Low 13 - 18 g/dL [facility] Work Phone: Interpretation and review of laboratory results Abnormal [facility] Work Phone: Lymphocytes (Bld) [#/Vol] 1.6 10*3/uL 1 - 4.3 10*3/uL [facility] Work Phone: Lymphocytes/100 WBC (Bld) 17.2 % Low 20 - 40 % [facility] Work Phone: MCH (RBC) [Entitic mass] 29.3 pg 26 - 34 pg [facility] Work Phone: 22 MCHC 33.8 % 32 - 36 % [facility] Work Phone: MCV (RBC) [Entitic vol] 86.7 fL 80 - 98 fL [facility] Work Phone: Monocytes (Bld) [#/Vol] 1.5 10*3/uL High 0 - 0.8 10*3/uL [facility] Work Phone: Monocytes/100 WBC (Bld) 15.9 % High 2 - 10 % [facility] [employer] Work Phone: Platelet mean volume (Bld) [Entitic vol] 8.0 fL 7.4 - 10.4 fL [facility] Work Phone: Platelets (Bld) [#/Vol] 264 10*3/uL 140 - 440 10*3/uL [facility] Work Phone: RBC (Bld) [#/Vol] 3.20 10*6/uL Low 4.4 - 5.9 10*6/uL [facility] Work Phone: WBC (Bld) [#/Vol] 9.3 10*3/uL 3.6 - 10.7 10*3/uL [facility] Work Phone: Test Performed by [facility] [address] Work Phone: Calcium, IonizedOrdered By: Delon Jessica on 10-22-2019 Interpretation and review of laboratory results Abnormal [facility] Work Phone: Ionized Ca 4.20 mg/dL Low 4.3 - 5.2 mg/dL [facility] Work Phone: 1 pH (Bld) 7.43 [pH] [facility] Work Phone: Test Performed [place] [address] [facility] Work Phone: FOLATEOrdered By: Earlene deluna on 10-22-2019 Folate 9.2 ng/mL 2.8 - 20 ng/mL [facility] Work Phone: Glomerular Basement Membrane (GBM) Antibody IgGOrdered By: Jeana Pedraza on 10-22-2019 GBM Ab, IgG (IFA) Negative Negative NA [facility] Work Phone: Comment on above: INTERPRETIVE INFORMA [...] biopsy. Test developed and characteristics determined by [facility]. See Compliance Statement D: Chujian.[employer]/CS Performed by [facility] [facility], [address], [facility] [place] [address] [email or web address], Malvin Slade MD, Lab. Director Iron and TIBCOrdered By: Al Irving on 10-22-2019 Interpretation and review of laboratory results Abnormal [facility] Work Phone: Iron [Mass/Vol] 64 ug/dL 49 - 181 ug/dL [facility] Work Phone: Sat 27 % 15 - 50 % [facility] Work Phone: TIBC 234 ug/dL Low 261 - 497 ug/dL [facility] Work Phone: Test Performed by [facility], [address] [place] [address] [facility] Work Phone: MagnesiumOrdered By: Delon Jessica on 10-22-2019 Magnesium [Mass/Vol] 2.0 mg/dL 1.6 - 2 .3 mg/dL [facility] Work Phone: No Panel InformationOrdered By: Earlene Irving on 10-22-2019 Test Performed by [facility], [address] [place] [address] [facility] Work Phone: No Panel InformationOrdered By: Delon Jessica on 10-22-2019 Interpretation and review of laboratory results Abnormal [facility] Work Phone: Test Performed by [facility], [address] [place] [address] [facility] Work Phone: PhosphorusOrdered By: Patrick Jessica on 10-22-2019 Phosphate [Mass/Vol] 8.7 mg/dL High 2.5 - 4 .5 mg/dL [facility] Work Phone: T4, FREEOrdered By: Earlene toure on 10-22-2019 Free T4 [Mass/Vol] 1.16 ng/dL 0.78 - 2. 19 ng/dL [facility] Work Phone: Test Performed by [facility], [address] [place], [place] [address] [facility] Work Phone: TSH without ReflexOrdered By : Earlene Irving on 10-22-2019 TSH 0.836 u[IU]/mL 0.465 - 4.68 u[IU]/mL [facility] Work Phone: Test Performed by [facility], [address] [place], [place] [address] [facility] Work Phone: VL RENAL ARTERIAL DUPLEX COM PLETEOrdered By: Brett Encarnacion on 10-22-2019 [facility] Renal Artery Duplex Ordering Physician: Brett Encarnacion Lining Folder: Laura Walsh Interpreting Physician: Luciano Shannon Location: [facility] Indications: Hypertension. Smoking history. Acute Kidney [...] supine position. Images were obtained using a [employer] E9 vascular ultrasound machine. The abdominal aorta, [...] + Kidney le (more content not included)... [facility] Work Phone: Mike, [facility] Incoming Cardiology Results From [facility] - 10/22/2019 3:01 PM EST [facility] Renal Artery Duplex Ordering Physician: Brett Encarnacion Lining Folder: Steps, Tanishia Interpreting Physician: Luciano Shannon Location: [facility] Indications: Hypertension. Smoking history. Acute Kidney [...] supine position. Images were obtained using a [employer] E9 vascular ultrasound machine. The abdominal aorta, [...] electronically signed by Luciano Shannon 10/22/2019 15:01 [facility] Work Phone: [phone] Vitamin [id number] By: Akin Irving on 10-22-2019 Cobalamin (Vitamin B12) [Mass/Vol] 959 pg/mL High 239 - 931 pg/mL [facility] Work Phone: [phone] Interpretation and review of laboratory results Abnormal [facility] Work Phone: [phone] Basic Metabolic PanelOrdered By: Delon Jessica on 10-21-2019 Anion gap [Moles/Vol] 16 mmol/L [facility] Work Phone: [phone] Calcium [Mass/Vol] 8.7 mg/dL 8.4 - 10. 4 mg/dL [facility] Work Phone: [phone] Chloride [Moles/Vol] 94 mmol/L Low 98 - 10 7 mmol/L [facility] Work Phone: [phone] CO2 [Moles/Vol] 25 mmol/L 22 - 30 mmol/L [facility] Work Phone: [phone] Creatinine [Mass/Vol] 11.16 mg/dL High 0.52 - 1.25 mg/dL [facility] Work Phone: [phone] EGFR IF NonAfrican Eritrean 4.8 mL/min >60 [facility] Work Phone: [phone] Comment on above: Source- MDRD equatio n with creatinine calibration to IDMS(NKDEP) eGFR not recommended for drug dose adjustment GFR/1.73 sq M.predicted among blacks MDRD (S/P/Bld) [Vol rate/Area] 5.8 mL/min/{1.73_m2} >60 [facility] Work Phone: [phone] Glucose [Mass/Vol] 103 mg/dL High 70 - 100 mg/dL [facility] Work Phone: [phone] Potassium [Moles/Vol] 4.9 mmol/L 3.5 - 5.1 mmol/L [facility] Work Phone: [phone] Sodium [Moles/Vol] 135 mmol/L 135 - 145 mmol/L [facility] Work Phone: [phone] Urea nitrogen [Mass/Vol] 83 mg/dL High 7 - 20 mg/d L [facility] Work Phone: [phone] CBC Auto DifferentialOrdered By: Delon Jessica on 10-21-2019 Absolute Baso # 0.1 10*3/uL 0 - 0.2 10*3/uL [facility] Work Phone: [phone] Absolute Neut # 6.4 10*3/uL 1.8 - 7 10*3/uL [facility] Work Phone: [phone] Basophils/100 WBC (Bld) 0.9 % 0 - 2 % S [facility] Work Phone: [phone] Eosinophils (Bld) [#/Vol] 0.2 10*3/uL 0 - 0.5 10*3/uL [facility] Work Phone: Eosinophils/100 WBC (Bld) 2.5 % 1 - 6 % [facility] Work Phone: [phone] Erythrocyte distribution width (RBC) [Ratio] 14.8 % High 11.5 - 14.5 % [facility] Work Phone: Granulocytes/100 WBC (Bld) 64.7 % 40 - 80 % [facility] Work Phone: 1 Hematocrit (Bld) [Volume fraction] 27.6 % Low 40 - 52 % [facility] Work Phone: 1 Hemoglobin (Bld) [Mass/Vol] 9.7 g/dL Low 13 - 18 g/dL [facility] Work Phone: 1 Comment on above: Post Transfusion Interpretation and review of laboratory results Abnormal [facility] Work Phone: 1 Lymphocytes (Bld) [#/Vol] 1.8 10*3/uL 1 - 4.3 10*3/uL [facility] Work Phone: 1 Lymphocytes/100 WBC (Bld) 18.5 % Low 20 - 40 % [facility] Work Phone: 1 MCH (RBC) [Entitic mass] 30.0 pg 26 - 34 pg [facility] Work Phone: 1 MCHC 35.3 % 32 - 36 % [facility] Work Phone: 1 MCV (RBC) [Entitic vol] 84.8 fL 80 - 98 fL [facility] [employer] Work Phone: 1 Monocytes (Bld) [#/Vol] 1.3 10*3/uL High 0 - 0.8 10*3/uL [employer] Work Phone: 1 Monocytes/100 WBC (Bld) 13.4 % High 2 - 10 % [employer] Work Phone: 1 Platelet mean volume (Bld) [Entitic vol] 7.8 fL 7.4 - 10.4 fL [employer] Work Phone: 1 Platelets (Bld) [#/Vol] 299 10*3/uL 140 - 440 10*3/uL [employer] Work Phone: 1 22 RBC (Bld) [#/Vol] 3.25 10*6/uL Low 4.4 - 5.9 10*6/uL [employer] Work Phone: 1 22 WBC (Bld) [#/Vol] 9.8 10*3/uL 3.6 - 10.7 10*3/uL [employer] Work Phone: 1 [facility] [address] [place] [address] [facility] Work Phone: 1 Calcium, IonizedOrdered By: Delon Jessica on 10-21-2019 Interpretation and review of laboratory results Abnormal [facility] Work Phone: 1 Ionized Ca 4.10 mg/dL Low 4.3 - 5.2 mg/dL [facility] Work Phone: 1 pH (Bld) 7.41 [pH] [facility] Work Phone: 1 [facility], [address] [place] [address] [facility] Work Phone: MagnesiumOrdered By: Delon Jessica on 10-21-2019 Magnesium [Mass/Vol] 1.9 mg/dL 1.6 - 2 .3 mg/dL [facility] Work Phone: 1 No Panel InformationOrdered By: Delon Jessica on 10-21-2019 Interpretation and review of laboratory results Abnormal [facility] Work Phone: 1 [facility], [address] [place] [address] [facility] Work Phone: PERIPHERAL BLOOD SMEAR, PATH REVIEWOrdered By: Jeana Pedraza on 10-21-2019 Peripheral Smear see below [facility] Work Phone: Comment on above: See report under Fredy gical Pathology. Test [facility]formed by [facility], [facility] [address] [place] [address] [facility] Work Phone: PhosphorusOrdered By: Patrick Jessica on 10-21-2019 Phosphate [Mass/Vol] 9.2 mg/dL High 2.5 - 4 .5 mg/dL [facility] Work Phone: US RETROPERITONEAL COMPLETEO rdered By: Randolph Euceda on 10-21-2019 Patient Name: GLENN SNYDER ---Ultrasound--- Exam Date/Time 10/21/2019 15:32:01 EST Exam US Retroperitoneal Complete Ordering Physician [id number] -RANDOLPH EUCEDA Accession Number [id number] CPT4 Codes 75499 () Reason For Exam blossom Report US [...] Phone: Mike, [facility] Results From [facility] - 10/21/2019 7:32 PM EST Patient Name: GLENN SNYDER ---Ultrasound--- Exam Date/Time 10/21/2019 15:32:01 EST Exam US Retroperitoneal Complete Ordering Physician RANDOLPH PALAFOX Accession Number [id number] CPT4 Codes 84744 () Reason For Exam blossom Report US [...] Ordering Physician MD ENCARNACION MATTHEW Accession Number [id number] CPT4 Codes 68164 () Reason For Exam vomiting Report ABDOMEN [...] Phone: Mike, [facility] Results From [facility] - 10/21/2019 6:30 PM EST Patient Name: GLENN SNYDER ---Diagnostic Radiology--- Exam Date/Time 10/21/2019 18:02:19 EST Exam CR Abdomen AP Ordering Physician MD ENCARNACION MATTHEW Accession Number [id number] CPT4 Codes 26405 () Reason For Exam vomiting Report ABDOMEN [...] WENDELL Transcribed Date and Time: 10/21/2019 6:30 [facility] Work Phone: ANAOrdered By: Jeana Pedraza on 10-20-2019 CIARAN TITER <1:40 <1:40 {titer} [facility] Work Phone: 1 Test Performed by [facility], [employer] [place] [address] [facility] Work Phone: Anti-Neutrophilic Cytoplasmi c AntibodyOrdered By: Jeana Pedraza on 10-20-2019 C-ANCA Not detected Not-Detected {titer} [facility] Work Phone: p-ANCA Titer Not detected Not-Detected {titer} [facility] Work Phone: Test Performed by [facility], [place] [address] [facility] Work Phone: Basic Metabolic PanelOrdered By: Brett Encarnacion on 10-20-2019 Anion gap [Moles/Vol] 15 mmol/L [facility] Work Phone: Calcium [Mass/Vol] 8.4 mg/dL 8.4 - 10. 4 mg/dL [facility] Work Phone: Chloride [Moles/Vol] 94 mmol/L Low 98 - 10 7 mmol/L [facility] Work Phone: CO2 [Moles/Vol] 26 mmol/L 22 - 30 mmol/L [facility] Work Phone: Creatinine [Mass/Vol] 9.4 mg/dL High 0.52 - 1.25 mg/dL [facility] Work Phone: EGFR IF NonAfrican Eritrean 5.9 mL/min >60 [facility] Work Phone: Comment on above: Source- MDRD equatio n with creatinine calibration to IDMS(NKDEP) eGFR not recommended for drug dose adjustment GFR/1.73 sq M.predicted among blacks MDRD (S/P/Bld) [Vol rate/Area] 7.1 mL/min/{1.73_m2} >60 [facility] Work Phone: [phone] Glucose [Mass/Vol] 110 mg/dL High 70 - 100 mg/dL [facility] Work Phone: [phone] Interpretation and review of laboratory results Abnormal [facility] Work Phone: [phone] Potassium [Moles/Vol] 4.0 mmol/L 3.5 - 5.1 mmol/L [facility] Work Phone: [phone] Sodium [Moles/Vol] 135 mmol/L 135 - 145 mmol/L [facility] Work Phone: [phone] Urea nitrogen [Mass/Vol] 76 mg/dL High 7 - 20 mg/d L [facility] Work Phone: [phone] Test Performed by [facility], [address] [place] [id number] [place], [place] [address]A Work Phone: [phone] Basic Metabolic PanelOrdered By: Delon Jessica on 10-20-2019 Anion gap [Moles/Vol] 18 mmol/L [facility] Work Phone: [phone] Calcium [Mass/Vol] 7.9 mg/dL Low 8.4 - 10. 4 mg/dL [facility] Work Phone: [phone] Chloride [Moles/Vol] 95 mmol/L Low 98 - 10 7 mmol/L [facility] Work Phone: [phone] CO2 [Moles/Vol] 24 mmol/L 22 - 30 mmol/L [facility] Work Phone: [phone] Creatinine [Mass/Vol] 13.53 mg/dL High 0.52 - 1.25 mg/dL [facility] Work Phone: [phone] EGFR IF NonAfrican Eritrean 3.9 mL/min >60 [facility] Work Phone: [phone] Comment on above: Source- MDRD equatio n with creatinine calibration to IDMS(NKDEP) eGFR not recommended for drug dose adjustment GFR/1.73 sq M.predicted among blacks MDRD (S/P/Bld) [Vol rate/Area] 4.7 mL/min/{1.73_m2} >60 [facility] Work Phone: 1 Glucose [Mass/Vol] 102 mg/dL High 70 - 100 mg/dL [facility] Work Phone: 1 Interpretation and review of laboratory results Abnormal [facility] Work Phone: 1 Potassium [Moles/Vol] 4.7 mmol/L 3.5 - 5.1 mmol/L [facility] Work Phone: Sodium [Moles/Vol] 136 mmol/L 135 - 145 mmol/L [facility] Work Phone: 1 Urea nitrogen [Mass/Vol] 123 mg/dL High 7 - 20 mg/d L [facility] Work Phone: Test Performed by [facility], [address] [place] [address] [facility] Work Phone: CBC Auto DifferentialOrdered By: Delon Jessica on 10-20-2019 Absolute Baso # 0.0 10*3/uL 0 - 0.2 10*3/uL [facility] Work Phone: Absolute Neut # 6.2 10*3/uL 1.8 - 7 10*3/uL [facility] Work Phone: Basophils/100 WBC (Bld) 0.4 % 0 - 2 % [facility] Work Phone: Eosinophils (Bld) [#/Vol] 0.1 10*3/uL 0 - 0.5 10*3/uL [facility] Work Phone: 22 Eosinophils/100 WBC (Bld) 1.1 % 1 - 6 % [facility] Work Phone: Erythrocyte distribution width (RBC) [Ratio] 13.4 % 11.5 - 14.5 % [facility] Work Phone: Granulocytes/100 WBC (Bld) 69.5 % 40 - 80 % [facility] Work Phone: Hematocrit (Bld) [Volume fraction] 19.3 % Low 40 - 52 % [employer] Work Phone: Hemoglobin (Bld) [Mass/Vol] 6.6 g/dL Critically low 13 - 18 g/dL [facility] Work Phone: 1 Interpretation and review of laboratory results Abnormal [facility] Work Phone: 1 Lymphocytes (Bld) [#/Vol] 1.6 10*3/uL 1 - 4.3 10*3/uL [facility] Work Phone: 1 Lymphocytes/100 WBC (Bld) 18.3 % Low 20 - 40 % [facility] Work Phone: 1 MCH (RBC) [Entitic mass] 29.4 pg 26 - 34 pg [facility] Work Phone: 1 MCHC 34.1 % 32 - 36 % [facility] Work Phone: 1 MCV (RBC) [Entitic vol] 86.2 fL 80 - 98 fL [facility] Work Phone: Monocytes (Bld) [#/Vol] 1.0 10*3/uL High 0 - 0.8 10*3/uL [facility] Work Phone: 1 Monocytes/100 WBC (Bld) 10.7 % High 2 - 10 % S [facility] Work Phone: Platelet mean volume (Bld) [Entitic vol] 7.4 fL 7.4 - 10.4 fL [facility] Work Phone: 1 Platelets (Bld) [#/Vol] 267 10*3/uL 140 - 440 10*3/uL [facility] Work Phone: 1 RBC (Bld) [#/Vol] 2.24 10*6/uL Low 4.4 - 5.9 10*6/uL [facility] Work Phone: 1 22 WBC (Bld) [#/Vol] 9.0 10*3/uL 3.6 - 10.7 10*3/uL [facility] Work Phone: [phone] Calcium, IonizedOrdered By: Delon Jessica on 10-20-2019 Interpretation and review of laboratory results Abnormal [facility] Work Phone: 1 Ionized Ca 3.80 mg/dL Low 4.3 - 5.2 mg/dL [facility] Work Phone: 1 22 pH (Bld) 7.41 [pH] [facility] Work Phone: 1 Test Performed by [facility], [address] [place] [address]. [address] Work Phone: Hemoglobin and Hematocrit, B loodOrdered By: Brett Encarnacion on 10-20-2019 Hematocrit (Bld) [Volume fraction] 25.2 % Low 40 - 52 % [facility] Work Phone: Hemoglobin (Bld) [Mass/Vol] 9.0 g/dL Low 13 - 18 g/dL [facility] Work Phone: 1 Interpretation and review of laboratory results Abnormal [facility] Work Phone: Test Performed by [facility], [address] [place] [address]. [address] Work Phone: 1 Hemoglobin and Hematocrit, B loodOrdered By: Delon Jessica on 10-20-2019 Hematocrit (Bld) [Volume fraction] 19.6 % Low 40 - 52 % [facility] Work Phone: 1 Hemoglobin (Bld) [Mass/Vol] 6.7 g/dL Critically low 13 - 18 g/dL [facility] Work Phone: 1 Interpretation and review of laboratory results Abnormal [facility] Work Phone: Test Performed by [facility], [address] [place], [place] [address]A Work Phone: Laboratory - Blood bankOrder ed By: Delon Jessica on 10-20-2019 ABO and Rh group Nom (Bld) 9500 [facility] Work Phone: 1 MagnesiumOrdered By: Delon Jessica on 10-20-2019 Magnesium [Mass/Vol] 1.8 mg/dL 1.6 - 2 .3 mg/dL [facility] Work Phone: 1 No Panel InformationOrdered By: Delon Jessica on 10-20-2019 Test Performed by [facility], [address] [place] [address]. [address] Work Phone: Test Performed by [facility], [address] [place], [place] [address] [facility] Work Phone: PREPARE RBC (CROSSMATCH), 2 UnitsOrdered By: Delon Jessica on 10-20-2019 Blood product unit ID (Dose) [#] [id number] [facility] Work Phone: 1 Blood product unit ID (Dose) [#] [id number] [facility] Work Phone: Dispense Status Blood Bank transfused [facility] Work Phone: Expiration Date [id number] [facility] Work Phone: Product Code Blood Bank [id number] [facility] Work Phone: [facility] Work Phone: PhosphorusOrdered By: Patrick Jessica on 10-20-2019 Interpretation and review of laboratory results Abnormal [facility] Work Phone: Phosphate [Mass/Vol] 12.3 mg/dL High 2.5 - 4 .5 mg/dL [facility] Work Phone: RBC MORPHOLOGYOrdered By: Caleb Jessica on 10-20-2019 Hypochromia Slight [facility] Work Phone: Poikilocytes Slight [facility] Work Phone: RBC morphology finding Nom (Bld) ABNORMAL [facility] Work Phone: Surgical PathologyOrdered By : Jeana Pedraza on 10-20-2019 Surgical Pathology Report SEE BELOW [facility] Work Phone: [phone] [id number] [facility] PATHOLOGY AND LABORATORY MEDICINE [address] [place] [address] FINAL PERIPHERAL BLOOD REPORT NAME: GLENN SNYDER : 1965 53 Y M AMY NO.: [id number] LOCATION: BIC[facility] 222 5 PROCEDURE 10/19/2019 DATE: SURGEON: JEANA PEDRAZA MD RECEIVED DATE: 10/20/2019 ATTENDING BRETT ENCARNACION REPORT DATE: 10/20/2019 : COPIES TO: DIAGNOSIS: NORMOCYTIC ANEMIA WITH ANISOCYTOSIS, INCLUDING SCHISTOCYTES AND MILD AGGLUTINATION, RULE OUT ANEMIA OF CHRONIC INFLAMMATION/RENAL DISEASE, IRON/NUTRITIONAL DEFICIENCIES, COAGULOPATHY AND/OR PARAPROTEINEMIA NO BLASTS OR DYSGRANULOPOIESIS IS SEEN. 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 CLINICAL INFORMATION: Peripheral [...] characteristics determined by the clinical laboratories of [facility]. They have not been cleared by [...] specimens. DEPARTMENT OF PATHOLOGY AND LABORATORY MEDICINE [place], [place] [address] [facility] Work Phone: 1 Add On Lab TestOrdered By: Michelle Encarnacion on 10-19-2019 Add On Rejected [facility] Work Phone: Test Performed by [facility], [address] [place], [place] [address] [facility] Work Phone: 1 Add On Lab TestOrdered By: Cecil Nieves on 10-19-2019 Add On Accepted [facility] Work Phone: 1 Comment on above: Specimen available & acceptable for analysis. Test Performed by [facility], [address] [place], [place] [id number] [place], [place] [address]A Work Phone: 1 Add On Accepted [facility] Work Phone: Comment on above: Specimen available & acceptable for analysis. Test Performed by [facility], [address] [place], [place] [id number] [place], [place] [address] Work Phone: Basic Metabolic PanelOrdered By: Brett Encarnacion on 10-19-2019 Anion gap [Moles/Vol] 20 mmol/L [facility] Work Phone: Calcium [Mass/Vol] 8.4 mg/dL 8.4 - 10. 4 mg/dL [facility] Work Phone: Chloride [Moles/Vol] 96 mmol/L Low 98 - 10 7 mmol/L [facility] Work Phone: CO2 [Moles/Vol] 18 mmol/L Low 22 - 30 mmol/L [facility] Work Phone: Creatinine [Mass/Vol] 12.26 mg/dL High 0.52 - 1.25 mg/dL [facility] Work Phone: EGFR IF NonAfrican Eritrean 4.3 mL/min >60 [facility] Work Phone: Comment on above: Source- MDRD equatio n with creatinine calibration to IDMS(NKDEP) eGFR not recommended for drug dose adjustment GFR/1.73 sq M.predicted among blacks MDRD (S/P/Bld) [Vol rate/Area] 5.2 mL/min/{1.73_m2} >60 [facility] Work Phone: 1 Glucose [Mass/Vol] 109 mg/dL High 70 - 100 mg/dL [facility] Work Phone: Interpretation and review of laboratory results Abnormal [facility] Work Phone: Potassium [Moles/Vol] 4.4 mmol/L 3.5 - 5.1 mmol/L [facility] Work Phone: Sodium [Moles/Vol] 134 mmol/L Low 135 - 145 mmol/L [facility] Work Phone: Urea nitrogen [Mass/Vol] 118 mg/dL High 7 - 20 mg/d L [facility] Work Phone: Test Performed by [facility], [facility] [address] [place], [place] [address] [employer] Work Phone: Blood Occult Stool Screen #1 Ordered By: Callie Nieves on 10-19-2019 Hemoglobin.gastrointesti nal Ql (Stl) Negative Negative NA [facility] Work Phone: Test Performed by [facility], [address] [place], [place] [address] [employer] Work Phone: C3 ComplementOrdered By: Nadia Pedraza on 10-19-2019 C3 Complement 115 mg/dL 85 - 165 mg/dL [facility] Work Phone: C4 ComplementOrdered By: Nadia Pedraza on 10-19-2019 C4 Complement 37 mg/dL 14 - 44 mg/dL [facility] Work Phone: CBC Auto DifferentialOrdered By: Jeana Pedraza on 10-19-2019 Absolute Baso # 0.0 10*3/uL 0 - 0.2 10*3/uL [facility] Work Phone: Absolute Neut # 7.7 10*3/uL High 1.8 - 7 10*3/uL [facility] Work Phone: 1 22 Basophils/100 WBC (Bld) 0.1 % 0 - 2 % S [facility] Work Phone: Eosinophils (Bld) [#/Vol] 0.0 10*3/uL 0 - 0.5 10*3/uL [facility] Work Phone: Eosinophils/100 WBC (Bld) 0.0 % Low 1 - 6 % [facility] Work Phone: 1 Erythrocyte distribution width (RBC) [Ratio] 13.1 % 11.5 - 14.5 % [facility] Work Phone: 1 Granulocytes/100 WBC (Bld) 93.1 % High 40 - 80 % [facility] Work Phone: Hematocrit (Bld) [Volume fraction] 26.9 % Low 40 - 52 % [facility] Work Phone: Hemoglobin (Bld) [Mass/Vol] 9.1 g/dL Low 13 - 18 g/dL [facility] Work Phone: Interpretation and review of laboratory results Abnormal [facility] Work Phone: Lymphocytes (Bld) [#/Vol] 0.4 10*3/uL Low 1 - 4.3 10*3/uL [facility] Work Phone: Lymphocytes/100 WBC (Bld) 5.1 % Low 20 - 40 % [facility] Work Phone: MCH (RBC) [Entitic mass] 29.2 pg 26 - 34 pg [facility] Work Phone: 22 MCHC 33.8 % 32 - 36 % [facility] Work Phone: MCV (RBC) [Entitic vol] 86.5 fL 80 - 98 fL [facility] Work Phone: Monocytes (Bld) [#/Vol] 0.1 10*3/uL 0 - 0.8 10*3/uL [facility] Work Phone: Monocytes/100 WBC (Bld) 1.7 % Low 2 - 10 % [facility] [employer] Work [phone] Platelet mean volume (Bld) [Entitic vol] 8.0 fL 7.4 - 10.4 fL [facility] Work Phone: [phone] Platelets (Bld) [#/Vol] 246 10*3/uL 140 - 440 10*3/uL [facility] Work Phone: [phone] RBC (Bld) [#/Vol] 3.11 10*6/uL Low 4.4 - 5.9 10*6/uL [facility] Work Phone: 1 WBC (Bld) [#/Vol] 8.3 10*3/uL 3.6 - 10.7 10*3/uL [facility] Work Phone: [phone] Test Performed by [facility], [address] [place] [address] [place] [address] [employer] Work Phone: [phone] CT Abdomen Pelvis Wo Contras tOrdered By: Callie Nieves on 10-19-2019 Patient Name: GLENN SNYDER ---CT--- Exam Date/Time 10/19/2019 08:12:[address] Abdomen/Pelvis (No PO, No IV) Ordering Physician DO NIEVES DAVID J Accession Number [id number] CPT4 Codes 86513 (CT Abdomen/Pelvis (No PO, No IV)) Reason [...] bilateral renal atrophy. No urologic calcification. 3. Fxbm-ve-xgoizhdh diverticulosis. No acute diverticulitis. Report Dictated on --- Final --- Dictating Physician: MD BUTCHER ANTHONY J Signed Date and Time: 10/19/2019 8:40 am Signed by: MD BUTCHER ANTHONY J Transcribed Date and Time: 10/19/2019 8:41 [facility] Work Phone: Mike, [facility] Incoming Rad[facility] Results From [facility] - 10/19/2019 8:42 AM EST Patient Name: GLENN SNYDER ---CT--- Exam Date/Time 10/19/2019 08:12:[address] Abdomen/Pelvis (No PO, No IV) Ordering Physician DO NIEVES DAVID J Accession Number [id number] CPT4 Codes 69161 (CT Abdomen/Pelvis (No PO, No IV)) Reason [...] bilateral renal atrophy. No urologic calcification. 3. Amou-fk-duqcllny diverticulosis. No acute diverticulitis. Report Dictated on --- Final --- Dictating Physician: MD BUTCHER ANTHONY J Signed Date and Time: 10/19/2019 8:40 am Signed by: MD BUTCHER ANTHONY J Transcribed Date and Time: 10/19/2019 8:41 [facility] Work Phone: [phone] Comprehensive Metabolic Pane lOrdered By: Callie Nieves on 10-19-2019 Albumin [Mass/Vol] 3.9 g/dL 3.5 - 5 g/dL [facility] Work Phone: [phone] ALP [Catalytic activity/Vol] 58 U/L 38 - 126 U/L [facility] Work Phone: [phone] ALT [Catalytic activity/Vol] 27 U/L 13 - 69 U/L [facility] Work Phone: [phone] Anion gap [Moles/Vol] 22 mmol/L [facility] Work Phone: [phone] AST [Catalytic activity/Vol] 41 U/L 15 - 46 U/L [facility] Work Phone: [phone] Bilirubin [Mass/Vol] 0.5 mg/dL 0.2 - 1 .3 mg/dL [facility] Work Phone: [phone] Calcium [Mass/Vol] 8.0 mg/dL Low 8.4 - 10. 4 mg/dL [facility] Work Phone: [phone] Chloride [Moles/Vol] 106 mmol/L 98 - 10 7 mmol/L [facility] Work Phone: 1 CO2 [Moles/Vol] 8 mmol/L Low 22 - 30 mmol/L [facility] Work Phone: 1 Creatinine [Mass/Vol] 17.04 mg/dL High 0.52 - 1.25 mg/dL [facility] Work Phone: 1 EGFR IF NonAfrican Eritrean 3.0 mL/min >60 [facility] Work Phone: 1 Comment on above: Source- MDRD equatio n with creatinine calibration to IDMS(NKDEP) eGFR not recommended for drug dose adjustment GFR/1.73 sq M.predicted among blacks MDRD (S/P/Bld) [Vol rate/Area] 3.6 mL/min/{1.73_m2} >60 [facility] Work Phone: Glucose [Mass/Vol] 93 mg/dL 70 - 100 mg/dL [facility] Work Phone: 1 Interpretation and review of laboratory results Abnormal [facility] Work Phone: Potassium [Moles/Vol] 6.6 mmol/L Critically high 3.5 - 5.1 mmol/L [facility] Work Phone: 1 Protein [Mass/Vol] 7.1 g/dL 6.3 - 8.2 g/dL [facility] Work Phone: Sodium [Moles/Vol] 136 mmol/L 135 - 145 mmol/L [facility] Work Phone: Urea nitrogen [Mass/Vol] 179 mg/dL High 7 - 20 mg/d L [facility] Work Phone: Test Performed by [facility], [address] [place] [address] [facility] Work Phone: Albumin [Mass/Vol] 4.3 g/dL 3.5 - 5 g/dL [facility] Work Phone: ALP [Catalytic activity/Vol] 68 U/L 38 - 126 U/L [facility] Work Phone: [phone] ALT [Catalytic activity/Vol] 31 U/L 13 - 69 U/L [facility] Work Phone: [phone] Anion gap [Moles/Vol] 22 mmol/L [facility] Work Phone: [phone] AST [Catalytic activity/Vol] 38 U/L 15 - 46 U/L [facility] Work Phone: [phone] Bilirubin [Mass/Vol] 0.3 mg/dL 0.2 - 1 .3 mg/dL [facility] Work Phone: [phone] Calcium [Mass/Vol] 8.1 mg/dL Low 8.4 - 10. 4 mg/dL [facility] Work Phone: [phone] Chloride [Moles/Vol] 104 mmol/L 98 - 10 7 mmol/L [facility] Work Phone: [phone] CO2 [Moles/Vol] 10 mmol/L Low 22 - 30 mmol/L [facility] Work Phone: [phone] Creatinine [Mass/Vol] 17.95 mg/dL High 0.52 - 1.25 mg/dL [facility] Work Phone: [phone] EGFR IF NonAfrican Eritrean 2.8 mL/min >60 [facility] Work Phone: [phone] Comment on above: Source- MDRD equatio n with creatinine calibration to IDMS(NKDEP) eGFR not recommended for drug dose adjustment GFR/1.73 sq M.predicted among blacks MDRD (S/P/Bld) [Vol rate/Area] 3.4 mL/min/{1.73_m2} >60 [facility] Work Phone: [phone] Glucose [Mass/Vol] 101 mg/dL High 70 - 100 mg/dL [facility] Work Phone: [phone] Interpretation and review of laboratory results Abnormal [facility] Work Phone: [phone] Potassium [Moles/Vol] 7.3 mmol/L Critically high 3.5 - 5.1 mmol/L [facility] Work Phone: [phone] Protein [Mass/Vol] 7.9 g/dL 6.3 - 8.2 g/dL [facility] Work Phone: [phone] Sodium [Moles/Vol] 136 mmol/L 135 - 145 mmol/L [facility] Work Phone: [phone] Urea nitrogen [Mass/Vol] 179 mg/dL High 7 - 20 mg/d L [facility] Work Phone: [phone] Test Performed by [facility], [address] [place] [address] [employer] Work Phone: [phone] EKG 12 Lead - Chest PainOrde red By: Callie Nieves on 10-19-2019 [facility] Test Date: 2019-10-19 Pat Name: Glenn Snyder Department: 2[facility]ED Room: 19 Gender: M Protective Officer: SHAWN : 1965 Requested By: CALLIE NIEVES Order Number: [id number] Reading MD: Alessia Tapia Measurements Intervals [place] Rate: 97 P: 78 IA: 128 QRS: 49 QRSD: 106 T: 83 QT: 376 QTc: 478 Interpretive Statements SINUS RHYTHM LEFT ATRIAL ABNORMALITY INCOMPLETE RIGHT BUNDLE BRANCH BLOCK LEFT VENTRICULAR HYPERTROPHY BORDERLINE PROLONGED QT INTERVAL No previous ECG available for comparison Electronically Signed On 10-19-2019 8:49:06 EST by Alessia Gogoyokojevon [facility] Work Phone: [phone] Mike, [facility] Incoming [facility] 10/19/2019 8:50 AM EST [facility] Test Date: 2019-10-19 Pat Name: Glenn Snyder Department: 2[facility] Room: 19 Gender: M Protective Officer: SHAWN : 1965 Requested By: CALLIE NIEVES Order Number: [id number] Reading MD: Alessia Tapia Measurements Intervals [place] Rate: 97 P: 78 IA: 128 QRS: 49 QRSD: 106 T: 83 QT: 376 QTc: 478 Interpretive Statements SINUS RHYTHM LEFT ATRIAL ABNORMALITY INCOMPLETE RIGHT BUNDLE BRANCH BLOCK LEFT VENTRICULAR HYPERTROPHY BORDERLINE PROLONGED QT INTERVAL No previous ECG available for comparison Electronically Signed On 10-19-2019 8:49:06 EST by Alessia Tapia [facility] Work Phone: [phone] HEPATITIS B SURFACE ANTIGENO rdered By: Jeana Pedraza on 10-19-2019 Hepatitis B Surface Ag Not detected Not-D etected NA [facility] Work Phone: [phone] HIV ScreenOrdered By: Adan Encarnacion on 10-19-2019 HIV 1+2 AB+[id number] AG, EIA Non-Reactive Nonreactive NA [facility] Work Phone: 1 Comment on above: Results obtained usi ng [...] # 0.1 10*3/uL 0 - 0.2 10*3/uL [facility] Work Phone: [phone] Absolute Neut # 11.3 10*3/uL High 1.8 - 7 10*3/uL [facility] Work Phone: Basophils/100 WBC (Bld) 0.6 % 0 - 2 % [facility] Work Phone: Eosinophils (Bld) [#/Vol] 0.2 10*3/uL 0 - 0.5 10*3/uL [facility] Work Phone: Eosinophils/100 WBC (Bld) 1.2 % 1 - 6 % [facility] Work Phone: Erythrocyte distribution width (RBC) [Ratio] 13.4 % 11.5 - 14.5 % [employer] Work Phone: Granulocytes/100 WBC (Bld) 80.5 % High 40 - 80 % [facility] Work Phone: Hematocrit (Bld) [Volume fraction] 23.2 % Low 40 - 52 % [facility] Work Phone: Hemoglobin (Bld) [Mass/Vol] 7.8 g/dL Low 13 - 18 g/dL [facility] Work Phone: [phone] Interpretation and review of laboratory results Abnormal [facility] Work Phone: Lymphocytes (Bld) [#/Vol] 1.4 10*3/uL 1 - 4.3 10*3/uL [facility] Work Phone: [phone] Lymphocytes/100 WBC (Bld) 9.8 % Low 20 - 40 % [facility] Work Phone: 1 MCH (RBC) [Entitic mass] 29.4 pg 26 - 34 pg [facility] Work Phone: 1 MCHC 33.6 % 32 - 36 % [facility] Work Phone: 1 MCV (RBC) [Entitic vol] 87.4 fL 80 - 98 fL [facility] [facility] Work Phone: 1( Monocytes (Bld) [#/Vol] 1.1 10*3/uL High 0 - 0.8 10*3/uL [facility] Work Phone: 1 Monocytes/100 WBC (Bld) 7.9 % 2 - 10 % [facility] [employer] Work Phone: 1 Platelet mean volume (Bld) [Entitic vol] 7.6 fL 7.4 - 10.4 fL [facility] Work Phone: 1 Platelets (Bld) [#/Vol] 293 10*3/uL 140 - 440 10*3/uL [facility] Work Phone: 1 RBC (Bld) [#/Vol] 2.66 10*6/uL Low 4.4 - 5.9 10*6/uL [facility] Work Phone: 1 WBC (Bld) [#/Vol] 14.1 10*3/uL High 3.6 - 10.7 10*3/uL [facility] Work Phone: 1 Test Performed by [facility], [address] [place] [address] [facility] Work Phone: Hepatitis C AntibodyOrdered By: Jeana Pedraza on 10-19-2019 Hepatitis C Ab Not detected Not-Detected NA [facility] Work Phone: Comment on above: Patients with DETECT ED Hepatitis C Ab results should have a new specimen submitted for supplemental testing with a Hepatitis C Quantitative RNA assay (viral load), if clinically indicated. MagnesiumOrdered By: Callie shaw on 10-19-2019 Magnesium [Mass/Vol] 2.1 mg/dL 1.6 - 2 .3 mg/dL [facility] Work Phone: Test Performed by [facility], [address] [place], [place] [address] [facility] Work Phone: No Panel InformationOrdered By: Brett Encarnacion on 10-19-2019 Test Performed by [facility], [address] [place] [id number] [facility] Work Phone: No Panel InformationOrdered By: Jeana Pedraza on 10-19-2019 Test Performed by [facility], [address] [place], [place] [address] [facility] Work Phone: PROCALCITONINOrdered By: Eldon Encarnacion on 10-19-2019 Interpretation See Below [facility] Work Phone: Comment on above: PCT <0.50 = Low risk of severe sepsis and/or septic shock. PCT >2.00 = High risk of severe sepsis and/or septic shock. Interpretation and review of laboratory results Abnormal [facility] Work Phone: 1 Procalcitonin 0.74 ng/mL Abnormal <0.10 [facility] Work Phone: PhosphorusOrdered By: Callie Nieves on 10-19-2019 Interpretation and review of laboratory results Abnormal [facility] Work Phone: 1 Phosphate [Mass/Vol] 14.8 mg/dL High 2.5 - 4 .5 mg/dL [facility] Work Phone: Test Performed by [facility], [address] [place], [place] [address] [facility] Work Phone: TYPE AND SCREENOrdered By: Cecil Nieves on 10-19-2019 ABO Grouping O [facility] Work Phone: Rh Type Negative [facility] Work Phone: Comment on above: Test Performed by [facility] [employer], [address] [place], [place] [address] Test Performed by [facility] [employer] [facility], [address] [place], [place] [address] [facility] Work Phone: [phone] TroponinOrdered By: Callie garcia on 10-19-2019 Interpretation and review of laboratory results Abnormal [facility] Work Phone: 1 Troponin I.cardiac [Mass/Vol] 0.075 ng/mL High 0 - 0.034 ng/mL [facility] Work [facility]: 1 Comment on above: . Test Performed by [facility], [address] [place], [place] [address] [facility] Work Phone: 1 UrinalysisOrdered By: Callie Nieves on 10-19-2019 AMORPHOUS CRYSTAL Few Negative /[HPF] [facility] Work Phone: 1 Appearance (U) Clear Clear NA [facility] Work Phone: 1 Bacteria, UA Few Negative /[HPF] [facility] Work Phone: 1 Bilirubin Urine Negative Negative mg/dL [facility] Work Phone: 1 Color (U) Colorless Lt. Yellow NA [facility] Work Phone: Glucose, Ur 200 mg/dL Normal (<70) [facility] [...] 0 - 2 /[HPF] [facility] Work Phone: Specific [place], Urine 1.009 S [facility] Work Phone: 1 Squam Epithel, UA 0-2 3 - 5 /[HPF] [facility] Work Phone: Urobilinogen, Urine Normal Normal ( 0-1) mg/dL [facility] Work Phone: WBC, UA 6-10 0 - 5 /[HPF] [facility] Work Phone: Test Performed by [facility] [employer] [facility], [address] [place], [place] [address] [facility] Work Phone: XR CHEST PORTABLEOrdered By: Brett Encarnacion on 10-19-2019 Patient Name: GLENN SNYDER ---Diagnostic Radiology--- Exam Date/Time 10/19/2019 12:11:06 EST Exam CR Chest Portable Ordering Physician MD ENCARNACION MATTHEW Accession Number [id number] CPT4 Codes 21529 () Reason For Exam line placement/vascath Report [...] RISA Transcribed Date and Time: 10/19/2019 12:56 [facility] Work Phone: Mike, [facility] 10/19/2019 12:57 PM EST Patient Name: GLENN SNYDER ---Diagnostic Radiology--- Exam Date/Time 10/19/2019 12:11:06 EST Exam CR Chest Portable Ordering Physician MD ENCARNACION MATTHEW Accession Number [id number] CPT4 Codes 61806 () Reason For Exam line placement/vascath Report [...] RISA Transcribed Date and Time: 10/19/2019 12:56 [facility] Work Phone: Vital Signs Date Time Vital Sign Value Performing Clinician Angelia sweet 03-05-2025 14:03-0400 Body temperature 97 [degF] Palak Thurman DO Work Phone: [facility] 03-05-2025 14:03-0400 Diastolic blood pressure 83 mm[Hg] Palak Alya DO Work Phone: [facility] 03-05-2025 14:03-0400 Heart rate 78 /min Palak Alya DO Work Phone: [facility] 03-05-2025 14:03-0400 Respiratory rate 16 /min Palak Alya DO Work Phone: [facility] 03-05-2025 14:03-0400 SaO2% (BldA) [Mass fraction] 100 % Palak Alya DO Work Phone: [facility] 03-05-2025 14:03-0400 Systolic blood pressure 137 mm[Hg] Smithgon Cuca DO Work Phone: [facility] 02-23-2025 14:13-0400 Body height 177.8 cm Palak Alya DO Work Phone: [facility] 02-23-2025 14:13-0400 Body mass index (BMI) [Ratio] 19.23 kg/m2 Palak Alya DO Work Phone: [facility] [employer] 02-23-2025 14:13-0400 Body weight 60.78 kg Palak Thurman DO Work Phone: [facility] [employer] 02-14-2025 10:30-0400 Body height 177.8 cm Mikala Day PA-C Work Phone: [facility] [employer] 02-14-2025 10:30-0400 Body mass index (BMI) [Ratio] 18.65 kg/m2 Mikala Day PA-C Work Phone: [facility] [employer] 02-14-2025 10:30-0400 Body temperature 96.8 [degF] Mikala Day PA-C Work Phone: [facility] [employer] 02-14-2025 10:30-0400 Body weight 58.97 kg Mikala Day PA-C Work Phone: [facility] [employer] 02-14-2025 10:30-0400 Diastolic blood pressure 72 mm[Hg] Mikala Day PA-C Work Phone: [facility] [employer] 02-14-2025 10:30-0400 Heart rate 89 /min Mikala Day PA-C Work Phone: [facility] [employer] 02-14-2025 10:30-0400 SaO2% (BldA) [Mass fraction] 98 % Mikala Day PA-C Work Phone: [facility] [employer] 02-14-2025 10:30-0400 Systolic blood pressure 138 mm[Hg] Mikala Day PA-C Work Phone: [facility] [employer] 02-01-2025 15:02-0400 Body temperature 96.69 [degF] Lazaro Rojo MD Work Phone: [employer] 02-01-2025 15:02-0400 Diastolic blood pressure 60 mm[Hg] Lazaro Rojo MD Work Phone: [facility] [employer] 02-01-2025 15:02-0400 Heart rate 81 /min Lazaro Rojo MD Work Phone: [facility] [employer] 02-01-2025 15:02-0400 Respiratory rate 16 /min Lazaro Rojo MD Work Phone: [employer] 02-01-2025 15:02-0400 SaO2% (BldA) [Mass fraction] 98 % Lazaro Rojo MD Work Phone: [facility] [employer] 02-01-2025 15:02-0400 Systolic blood pressure 118 mm[Hg] Lazaro Rojo MD Work Phone: [facility] [employer] 02-01-2025 05:36-0400 Body mass index (BMI) [Ratio] 14.58 kg/m2 Lazaro Rojo MD Work Phone: [employer] 02-01-2025 05:36-0400 Body weight 46.1 kg Lazaro Rojo MD Work Phone: [facility] [employer] 01-30-2025 10:02-0400 Body height 177.8 cm Lazaro Rojo MD Work Phone: [facility] [employer] 08-28-2024 15:33-0500 Body height 177.8 cm Jr Shah MD Work Phone: [employer] 08-28-2024 15:33-0500 Body mass index (BMI) [Ratio] 29.56 kg/m2 Jr Shah MD Work Phone: [facility] [employer] 08-28-2024 15:33-0500 Body weight 93.44 kg Jr Shah MD Work Phone: [facility] [employer] 08-28-2024 15:33-0500 Diastolic blood pressure 80 mm[Hg] Jr Shah MD Work Phone: [employer] 08-28-2024 15:33-0500 Heart rate 75 /min Jr Shah MD Work Phone: [facility] [employer] 08-28-2024 15:33-0500 Systolic blood pressure 130 mm[Hg] Jr Shah MD Work Phone: [facility] [employer] 11-12-2023 14:16-0500 Diastolic blood pressure 84 mm[Hg] Quiana Forrester CNP Work Phone: [employer] 11-12-2023 14:16-0500 Systolic blood pressure 138 mm[Hg] Quiana Contreras CERTIFIED FLEX ENDOSCOPE REPROCESSOR - [employer] Work Phone: [facility] [employer] 11-12-2023 13:41-0500 Body height 177.8 cm Quiana Diane CERTIFIED FLEX ENDOSCOPE REPROCESSOR - [employer] Work Phone: [facility] [employer] 11-12-2023 13:41-0500 Body mass index (BMI) [Ratio] 29.84 kg/m2 Quiana Contreras CERTIFIED FLEX ENDOSCOPE REPROCESSOR - [employer] Work Phone: [facility] [employer] 11-12-2023 13:41-0500 Body weight 94.35 kg Quiana Contreras CERTIFIED FLEX ENDOSCOPE REPROCESSOR - [employer] Work Phone: [facility] [employer] 11-12-2023 13:41-0500 Heart rate 85 /min Quiana Collinsviola LOZA - SAMIA Work Phone: [facility] [employer] 08-17-2023 13:12-0500 Diastolic blood pressure 67 mm[Hg] Dioniciochandana Ozzie DO Work Phone: [facility] [employer] 08-17-2023 13:12-0500 Heart rate 84 /min Dionicion Bourg DO Work Phone: [facility] [employer] 08-17-2023 13:12-0500 Respiratory rate 18 /min Dionicion Bourg DO Work Phone: [employer] 08-17-2023 13:12-0500 SaO2% (BldA) [Mass fraction] 98 % Dioniciochandana Bourg DO Work Phone: [employer] 08-17-2023 13:12-0500 Systolic blood pressure 94 mm[Hg] Gurinderserenen Ozzie DO Work Phone: [employer] 08-17-2023 09:13-0500 Body height 177.8 cm Dionicion Ozzie DO Work Phone: [employer] 08-17-2023 09:13-0500 Body mass index (BMI) [Ratio] 28.7 kg/m2 Jaklyn Bourg DO Work Phone: [facility] [employer] 08-17-2023 09:13-0500 Body weight 90.72 kg Dangelo Horne DO Work Phone: [facility] [employer] 08-17-2023 08:50-0500 Body temperature 99 [degF] Dangelo Horne DO Work Phone: [facility] [employer] 05-01-2023 20:36-0400 Diastolic blood pressure 85 mm[Hg] Jese Frank MD Work Phone: [facility] [employer] 05-01-2023 20:36-0400 Heart rate 74 /min Jese Frank MD Work Phone: [facility] [employer] 05-01-2023 20:36-0400 Respiratory rate 20 /min Jese Frank MD Work Phone: [facility] [employer] 05-01-2023 20:36-0400 SaO2% (BldA) [Mass fraction] 95 % Jese Frank MD Work Phone: [facility] [employer] 05-01-2023 20:36-0400 Systolic blood pressure 135 mm[Hg] Jese Frank MD Work Phone: [facility] [employer] 05-01-2023 20:08-0400 Body height 177.8 cm Jese Frank MD Work Phone: [facility] [employer] 05-01-2023 20:08-0400 Body mass index (BMI) [Ratio] 28.7 kg/m2 Jese Frank MD Work Phone: [facility] [employer] 05-01-2023 20:08-0400 Body temperature 98.2 [degF] Jese Frank MD Work Phone: [facility] [employer] 05-01-2023 20:08-0400 Body weight 90.72 kg Jese Frank MD Work Phone: [facility] [employer] 12-25-2021 15:50-0400 Body height 177.8 cm Rudy Painter MD Work Phone: [facility] 12-25-2021 15:50-0400 Body weight 99.79 kg Rudy Painter MD Work Phone: [facility] 12-25-2021 15:50-0400 Diastolic blood pressure 72 mm[Hg] Rudy Painter MD Work Phone: [facility] 12-25-2021 15:50-0400 Heart rate 70 /min Rudy Painter MD Work Phone: [facility] 12-25-2021 15:50-0400 Systolic blood pressure 130 mm[Hg] Rudy Painter MD Work Phone: [facility] 09-15-2021 11:20-0500 Body temperature 97.59 [degF] Cindy Patel MD Work Phone: [facility] 09-15-2021 11:20-0500 Diastolic blood pressure 83 mm[Hg] Cindy Patel MD Work Phone: [facility] 09-15-2021 11:20-0500 Heart rate 85 /min Cindy Patel MD Work Phone: [facility] 09-15-2021 11:20-0500 Respiratory rate 20 /min Cindy Patel MD Work Phone: [facility] 09-15-2021 11:20-0500 SaO2% (BldA) [Mass fraction] 98 % Cindy Patel MD Work Phone: [facility] 09-15-2021 11:20-0500 Systolic blood pressure 144 mm[Hg] Cindy Patel MD Work Phone: [facility] 09-15-2021 09:19-0500 Body height 177.8 cm Cindy Patel MD Work Phone: [facility] 09-15-2021 09:19-0500 Body mass index (BMI) [Ratio] 30.05 kg/m2 Cindy Patel MD Work Phone: [facility] 09-15-2021 09:19-0500 Body weight 94.98 kg Cindy Patel MD Work Phone: [facility] 10-27-2019 20:02-0500 Body temperature 97.2 [degF] Auditude DO Work Phone: [facility] Work Phone: 10-27-2019 20:02-0500 Diastolic blood pressure 77 mm[Hg] Auditude DO Work Phone: [facility] Work Phone: 10-27-2019 20:02-0500 Heart rate 107 /min Callie [employer] DO Work Phone: [facility] Work Phone: 10-27-2019 20:02-0500 Respiratory rate 16 /min [employer]ie [employer] Work Phone: [facility] Work Phone: 10-27-2019 20:02-0500 SaO2% (BldA) [Mass fraction] 96 % [employer] DO Work Phone: [facility] Work Phone: 10-27-2019 20:02-0500 Systolic blood pressure 112 mm[Hg] Callie Damir DO Work Phone: [facility] Work Phone: 10-27-2019 14:10-0500 Body mass index (BMI) [Ratio] 27.08 kg/m2 Callie [employer] Work Phone: [facility] Work Phone: 10-27-2019 14:10-0500 Body weight 85.6 kg Callie [employer] DO Work Phone: [facility] Work Phone: 10-19-2019 12:45-0500 Body height 177.8 cm Callie [employer] Work Phone: [facility] Work Phone: Encounters Encounter Date Encounter Type Care Provider Facility Start: 03-09-2025 ambulatory Jayesh ALBA Faci lity:[facility] Start: 03-09-2025 Registered Referred Peter Katsaros - [facility] Start: 03-08-2025 End: 03-08-2025 Orders Only Christelle Eckert RN [facility] [place] Comment on above: Tracheostomy depende nce (HCC) (Primary Dx); Tracheostomy complication, unspecified complication type (HCC); Acute respiratory failure with hypoxia (HCC) [J96.01] Start: 03-08-2025 Registered Referred Kayley ortiz MD -[facility] Start: 02-23-2025 End: 02-23-2025 Telephone encounter Elly Jett MD Work Phone: [facility] Critical Care Comment on above: Appointment Start: 02-21-2025 End: 02-25-2025 Telephone encounter Hussain Quintana MD Work Phone: [facility] Infectious Disease - [place] Comment on above: Other Start: 02-20-2025 End: 03-05-2025 Evaluation and management of inpatient Palak Thurman DO Work Phone: [facility] Trauma Neuro Progressive Care Unit PCU 3W Start: 02-20-2025 End: 02-20-2025 ambulatory Kayley Melendrez MD [facility] Work Phone: Start: 02-20-2025 End: 02-20-2025 Departed Referred Kayley Melendrez MD -[facility] Start: 02-20-2025 Registered Referred Kayley ortiz MD -[facility] Start: 02-20-2025 End: 02-20-2025 ambulatory Kayley ALBA Facility:[facility] Start: 02-15-2025 End: 02-15-2025 ambulatory Kayley Melendrez MD [facility] Work Phone: Start: 02-15-2025 End: 02-15-2025 Departed Referred Kayley Melendrez MD -[facility] Start: 02-15-2025 Registered Referred Kayley ortiz MD [facility] Start: 02-14-2025 End: 02-14-2025 Office outpatient visit 25 minutes Mikala Day PA-C Work Phone: [facility] [place] Comment on above: Sacral osteomyelitis (CMS/HCC) (HCC) (Primary Dx); ESRD on hemodialysis (CMS/HCC) (HCC); 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, 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); Decubitus ulcer of sacral region, unstageable (HCC); [facility] (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 Start: 02-14-2025 End: 02-15-2025 ambulatory Kayley ALBA Facility:[facility] Start: 02-13-2025 ambulatory Kayley aneudymatt jena OLS Facility:[facility] Start: 02-13-2025 [place] [facility] Start: 02-12-2025 ambulatory [facility] Facility:[facility] Start: 02-12-2025 [place] [facility] Start: 02-08-2025 [facility] Facility:[facility] Start: 02-08-2025 [place] [facility] Start: 02-07-2025 End: 02-07-2025 Departed Referred [facility] Start: 02-07-2025 Registered Referred [facility] Start: 02-07-2025 End: 02-07-2025 ambulatory Jayesh ALBA Facility:[facility] Start: 02-05-2025 End: 02-05-2025 ambulatory Kayley Melendrez MD [facility] Work Phone: Start: 02-05-2025 End: 02-05-2025 [place] [facility] Start: 02-05-2025 End: 02-05-2025 ambulatory Kayley ALBA Facility:[facility] Start: 02-02-2025 End: 02-02-2025 Anticoagulant drug monitoring Adalberto SanchezD [facility] Pharmacy Comment on above: S/P AVR (Primary Dx) Start: 01-29-2025 End: 02-05-2025 Telephone encounter Adina Lan LEISA [facility] Anticoagulatio n Management Service Comment on above: Anticoagulation Start: 01-19-2025 End: 02-01-2025 Evaluation and management of inpatient Lazaro Rojo MD Work Phone: [facility] Cardiac Vascular Progressive Care Unit PCC 1C Start: 01-18-2025 End: 01-18-2025 ambulatory Jefferson Nathan MD Work Phone: [facility] Sleep Medicine [facility] Comment on above: Acute respiratory fa ilure with hypoxia (HCC) [J96.01] (Primary Dx); RSV (acute bronchiolitis due to respiratory syncytial virus); 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HCC); Leg DVT (deep venous thromboembolism), acute, left (HCC); Pulmonary embolism, unspecified chronicity, unspecified pulmonary embolism type, unspecified whether acute cor pulmonale present (HCC); S/P AVR Start: 01-17-2025 End: 01-17-2025 ambulatory Jefferson Nathan MD Work Phone: [facility] Pulmonary and Sleep Medicine [facility] Comment on above: RSV (acute bronchiol [...] (Primary Dx); ESRD on hemodialysis (CMS/HCC) (HCC); [facility] (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; Decubitus ulcer of sacral region, unstageable (HCC); Sacral osteomyelitis (CMS/HCC) (HCC) Start: 01-16-2025 End: 01-16-2025 ambulatory Jefferson Nathan MD Work Phone: [facility] Pulmonary and Sleep Medicine [facility] Comment on above: RSV (acute bronchiol [...] 01-15-2025 ambulatory Jefferson Nathan MD Work Phone: [facility] Pulmonary and Sleep Medicine [facility] Comment on above: RSV (acute bronchiol itis due to respiratory syncytial virus) (Primary Dx); 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HCC); Acute respiratory failure with hypoxia (HCC) [J96.01]; Leg DVT (deep venous thromboembolism), acute, left (HCC); Pulmonary embolism, unspecified chronicity, unspecified pulmonary embolism type, unspecified whether acute cor pulmonale present (HCC); S/P AVR Tracheostomy depende nce (HCC) (Primary Dx); ESRD on hemodialysis (CMS/HCC) (HCC); 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, 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); Sacral osteomyelitis (CMS/HCC) (HCC); Leukocytosis, unspecified type Start: 01-14-2025 End: 01-14-2025 ambulatory Hany Berrios MD Work Phone: [facility] Pulmonary [facility] Sleep Medicine [facility] Comment on above: Acute respiratory fa ilure with hypoxia (HCC) [J96.01] (Primary Dx); 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]; Pulmonary embolism, other, unspecified chronicity, unspecified whether acute cor pulmonale present (HCC) Start: 01-12-2025 End: 01-12-2025 ambulatory Mikala Day PA-C Work Phone: [facility] Infectious Dis Comment on above: Tracheostomy depende nce (HCC) (Primary Dx); Sacral osteomyelitis (CMS/HCC) (HCC); Leukocytosis, unspecified type; Decubitus ulcer of sacral region, unstageable (HCC); [facility] (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 Acute respiratory fa ilure with hypoxia (HCC) [J96.01] (Primary Dx); 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]; Pulmonary embolism, other, unspecified chronicity, unspecified whether acute cor pulmonale present (HCC) Start: 01-11-2025 End: 01-11-2025 ambulatory Mikala Day PA-C Work Phone: [facility] Infectious Dis Comment on above: Tracheostomy depende nce (HCC) (Primary Dx); ESRD on hemodialysis (CMS/HCC) (HCC); Sacral osteomyelitis (CMS/HCC) (HCC); Decubitus ulcer of sacral region, unstageable (HCC) Acute respiratory fa ilure with hypoxia (HCC) [J96.01] (Primary Dx); 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]; Pulmonary embolism, other, unspecified chronicity, unspecified whether acute cor pulmonale present (HCC) Start: 01-10-2025 End: 01-10-2025 ambulatory Hany Berrios MD Work Phone: [facility] Pulmonary and Sleep Medicine [facility] Comment on above: Acute respiratory fa ilure with hypoxia (HCC) [J96.01] (Primary Dx); 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]; Pulmonary embolism, other, unspecified chronicity, unspecified whether acute cor pulmonale present (HCC) Start: 01-09-2025 End: 01-09-2025 ambulatory Mikala Day PA-C Work Phone: [facility] Infectious Dis Comment on above: Tracheostomy depende [...] 01-08-2025 ambulatory Mikala Day PA-C Work Phone: [facility] Infectious Dis Comment on above: Tracheostomy depende [...] Start: 01-05-2025 End: 01-05-2025 ambulatory Sydni Husain APRN - [employer] Work Phone: [facility] [place] Comment on above: Pneumonia of both marleny ngs due to methicillin susceptible Staphylococcus aureus (MSSA), unspecified part of lung (HCC) (Primary Dx); Acute hypoxic respiratory failure (HCC); 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HCC); ESRD on hemodialysis (CMS/HCC) (HCC); Sacral osteomyelitis (CMS/HCC) (HCC); Decubitus ulcer of sacral region, unstageable (HCC) Start: 01-05-2025 End: 01-05-2025 Patient encounter procedure Chandrika Allen APRN - [employer] Work Phone: [facility] Mit[facility] Sniha Comment on above: Acute respiratory fa ilure with hypoxia (HCC) [J96.01] (Primary Dx); 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]; LRTI (lower respiratory tract infection) [J22] Start: 01-04-2025 End: 01-04-2025 Admission to same day surgery center Sydni Husain APRN - [employer] Work Phone: [facility] [place] Comment on above: Tracheostomy depende nce (HCC) (Primary Dx); Pneumonia of both lungs due to methicillin susceptible Staphylococcus aureus (MSSA), unspecified part of lung (HCC); Acute hypoxic respiratory failure (HCC); Peritonitis due to fungus (HCC); ESRD on hemodialysis (CMS/HCC) (HCC); Sacral osteomyelitis (CMS/HCC) (HCC); Leukocytosis, unspecified type; History of abdominal surgery Start: 01-04-2025 End: 01-04-2025 ambulatory Sydni Husain CERTIFIED FLEX ENDOSCOPE REPROCESSOR - [employer] Work Phone: [facility] [place] Start: 01-04-2025 End: 01-04-2025 [facility] hospital care/day 25 minutes Angelesmatt Blakcburn DO Work Phone: [facility] [place] Comment on above: 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] (Primary Dx); Acute respiratory failure with hypoxia (HCC) [J96.01] Start: 01-03-2025 End: 01-03-2025 ambulatory Josephine Cash CERTIFIED FLEX ENDOSCOPE REPROCESSOR [employer] Work Phone: [facility] [place] Comment on above: Sacral osteomyelitis (CMS/HCC) (HCC) (Primary Dx); Decubitus ulcer of sacral region, unstageable (HCC); Pneumonia of both lungs due to methicillin susceptible Staphylococcus aureus (MSSA), unspecified part of lung (HCC); Leukocytosis, unspecified type; ESRD on hemodialysis (CMS/HCC) (HCC); S/P AVR Start: 01-03-2025 End: 01-03-2025 [facility] hospital care/day 25 minutes Angelesmatt Blackburn DO Work Phone: [facility] [place] Comment on above: 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] (Primary Dx); Acute respiratory failure with hypoxia (HCC) [J96.01] Start: 01-02-2025 End: 01-02-2025 ambulatory Josephine Cash CERTIFIED FLEX ENDOSCOPE REPROCESSOR [employer] Work Phone: [facility] Infectious Disease - [place] Comment on above: Leukocytosis, unspec ified type (Primary Dx); Pneumonia of both lungs due to methicillin susceptible Staphylococcus aureus (MSSA), unspecified part of lung (HCC); Acute hypoxic respiratory failure (HCC); Decubitus ulcer of sacral region, unstageable (HCC); ESRD on hemodialysis (CMS/HCC) (HCC); S/P AVR Start: 01-02-2025 End: 01-02-2025 [facility] hospital care/day 25 minutes Angeles Torresodgrass DO Work Phone: [facility] Nodule [facility] [place] Comment on above: 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] (Primary Dx); Acute respiratory failure with hypoxia (HCC) [J96.01] Start: 01-01-2025 End: 01-01-2025 ambulatory Ochoa Guido MD Work Phone: [facility] Cardiology [facility] Comment on above: Persistent atrial fi brillation (HCC) (Primary Dx) Leukocytosis, unspec ified type (Primary Dx); Pneumonia of both lungs due to methicillin susceptible Staphylococcus aureus (MSSA), unspecified part of lung (HCC); Acute hypoxic respiratory failure (HCC); 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HCC); Decubitus ulcer of sacral region, unstageable (HCC); ESRD on hemodialysis (CMS/HCC) (HCC); S/P AVR Start: 01-01-2025 End: 01-01-2025 [facility] hospital care/day 25 minutes Angeles CalderonMitzyJohann DO Work Phone: [facility] Nodule [facility] [place] Comment on above: 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] (Primary Dx); Acute respiratory failure with hypoxia (HCC) [J96.01] Start: 12-30-2024 End: 12-30-2024 ambulatory Josephine Cash CERTIFIED FLEX ENDOSCOPE REPROCESSOR - [employer] Work Phone: [facility] Infectious Dis Comment on above: Leukocytosis, unspec ified type (Primary Dx); Acute hypoxic respiratory failure (HCC); 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HCC); S/P AVR; ESRD on hemodialysis (CMS/HCC) (HCC); Decubitus ulcer of sacral region, unstageable (HCC) Start: 12-28-2024 End: 12-28-2024 ambulatory Mercedes Hinton CERTIFIED FLEX ENDOSCOPE REPROCESSOR - [employer] Work Phone: [facility] Nodule [facility] [place] Start: 12-28-2024 End: 12-28-2024 Patient encounter procedure Mercedes Hinton CERTIFIED FLEX ENDOSCOPE REPROCESSOR - [employer] Work Phone: [facility] Lung [facility] Comment on above: Acute respiratory fa ilure with hypoxia (HCC) [J96.01] (Primary Dx); 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]; Tracheostomy care (HCC) [Z43.0]; History of pulmonary embolus (PE) [Z86.711] Start: 12-27-2024 End: 12-27-2024 ambulatory Mercedes Hinton CERTIFIED FLEX ENDOSCOPE REPROCESSOR - [employer] Work Phone: [facility] Lung Nodule [facility] Start: 12-27-2024 End: 12-27-2024 Patient encounter procedure Mercedes Hinton CERTIFIED FLEX ENDOSCOPE REPROCESSOR - [employer] Work Phone: [facility]od[facility] Comment on above: Acute respiratory fa ilure with hypoxia (HCC) [J96.01] (Primary Dx); 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]; Tracheostomy care (HCC) [Z43.0]; History of pulmonary embolus (PE) [Z86.711] Start: 12-26-2024 End: 12-26-2024 ambulatory Mercedes Hinton CERTIFIED FLEX ENDOSCOPE REPROCESSOR - [employer] Work Phone: [facility]od[facility] Start: 12-26-2024 End: 12-26-2024 Patient encounter procedure Mercedes Hinton CERTIFIED FLEX ENDOSCOPE REPROCESSOR - [employer] Work Phone: [facility] Comment on above: Acute respiratory fa ilure with hypoxia (HCC) [J96.01] (Primary Dx); 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]; Tracheostomy care (HCC) [Z43.0]; History of pulmonary embolus (PE) [Z86.711] Start: 12-22-2024 End: 12-22-2024 ambulatory Chandrika Allen CERTIFIED FLEX ENDOSCOPE REPROCESSOR [employer] Work Phone: [facility] Nod[facility] Start: 12-22-2024 End: 12-22-2024 Patient encounter procedure Chandrika Allen CERTIFIED FLEX ENDOSCOPE REPROCESSOR - [employer] Work Phone: [facility] Lung [facility] Comment on above: 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] (Primary Dx); Acute respiratory failure with hypoxia (HCC) [J96.01]; LRTI (lower respiratory tract infection) [J22] Start: 12-21-2024 End: 12-21-2024 ambulatory Chandrika Medranowski CERTIFIED FLEX ENDOSCOPE REPROCESSOR - [employer] Work Phone: [facility] Start: 12-21-2024 End: 12-21-2024 Patient encounter procedure Chandrika Medranowski CERTIFIED FLEX ENDOSCOPE REPROCESSOR - [employer] Work Phone: [facility] Comment on above: 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] (Primary Dx); Acute respiratory failure with hypoxia (HCC) [J96.01]; LRTI (lower respiratory tract infection) [J22] Start: 12-20-2024 End: 12-20-2024 ambulatory Chandrika ERomulo Allen CERTIFIED FLEX ENDOSCOPE REPROCESSOR [employer] Work Phone: [facility] Start: 12-20-2024 End: 12-20-2024 Patient encounter procedure Chandrika Medranowski CERTIFIED FLEX ENDOSCOPE REPROCESSOR - [employer] Work Phone: [facility] Comment on above: 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] (Primary Dx); Acute respiratory failure with hypoxia (HCC) [J96.01]; LRTI (lower respiratory tract infection) [J22] Start: 12-19-2024 End: 12-19-2024 ambulatory Chandrika BorjaRomulo Allen CERTIFIED FLEX ENDOSCOPE REPROCESSOR - [employer] [facility] Start: 12-19-2024 End: 12-19-2024 Patient encounter procedure Chandrika Cummingsoblewski CERTIFIED FLEX ENDOSCOPE REPROCESSOR - [employer] Work Phone: [facility] Comment on above: 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] (Primary Dx); Acute respiratory failure with hypoxia (HCC) [J96.01]; LRTI (lower respiratory tract infection) [J22] Start: 12-18-2024 End: 12-18-2024 Patient encounter procedure Chandrika Allen CERTIFIED FLEX ENDOSCOPE REPROCESSOR - [employer] Work Phone: [facility] Lung [facility] Comment on above: Acute respiratory fa ilure with hypoxia (HCC) [J96.01] (Primary Dx); 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]; LRTI (lower respiratory tract infection) [J22] Start: 12-18-2024 End: 12-18-2024 ambulatory Chandrika Allen CERTIFIED FLEX ENDOSCOPE REPROCESSOR - [employer] Work Phone: [facility] Lung [facility] Start: 12-15-2024 End: 12-15-2024 ambulatory Jefferson Nathan MD Work Phone: [facility] Lung [facility] Start: 12-15-2024 End: 12-15-2024 Patient encounter procedure Jefferson Nathan MD Work Phone: [facility] Comment on above: Acute respiratory fa ilure with hypoxia (HCC) (Primary Dx); 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HCC); RSV (acute bronchiolitis due to respiratory syncytial virus); Leg DVT (deep venous thromboembolism), acute, left (HCC); Nonrheumatic aortic valve stenosis Start: 12-14-2024 End: 12-14-2024 ambulatory Jefferson Nathan MD Work Phone: [facility] Pulmonary and Sleep Medicine [facility] Comment on above: Acute respiratory fa ilure with hypoxia (HCC) (Primary Dx); 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HCC); RSV (acute bronchiolitis due to respiratory syncytial virus); ESRD on hemodialysis ([facility]/HCC) (HCC); Pulmonary embolism, other, unspecified chronicity, unspecified whether acute cor pulmonale present (HCC); Nonrheumatic aortic valve stenosis Start: 12-13-2024 End: 12-13-2024 ambulatory Jefferson Nathan MD Work Phone: [facility] Pulmonary and Sleep Medicine [facility] Comment on above: Acute respiratory fa ilure with hypoxia (HCC) (Primary Dx); 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HCC); RSV (acute bronchiolitis due to respiratory syncytial virus); Paroxysmal A-fib (CMS/HCC) (HCC); Nonrheumatic aortic valve stenosis Start: 12-12-2024 End: 12-12-2024 ambulatory Jefferson Nathan MD Work Phone: [facility] Pulmonary and Sleep Medicine [facility] Comment on above: RSV (acute bronchiol itis due to respiratory syncytial virus) (Primary Dx); 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HCC); Acute respiratory failure with hypoxia (HCC); Paroxysmal A-fib (CMS/HCC) (HCC); Peritonitis due to fungus (HCC) Start: 12-11-2024 End: 12-11-2024 ambulatory Jefferson Nathan MD Work Phone: [facility] Pulmonary and Sleep Medicine [facility] Comment on above: RSV (acute bronchiol [...] day surgery center Sydni Husain APRN - [employer] Work Phone: [facility] Infectious Disease [place] Comment on above: Acute respiratory fa ilure with hypoxia (HCC) (Primary Dx); 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HCC); S/P AVR; Peritonitis due to fungus (HCC); ESRD on hemodialysis ([facility]) ([facility]); 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, 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); Anemia, unspecified type; History of abdominal surgery Start: 12-07-2024 End: 12-07-2024 ambulatory Sydni Husain APRN - [employer] Work Phone: [facility] Infectious Disease - [place] Start: 12-06-2024 End: 12-06-2024 Admission to same day surgery center Sydni Husain CERTIFIED FLEX ENDOSCOPE REPROCESSOR - [employer] Work Phone: [facility] - [place] Comment on above: Acute respiratory fa ilure with hypoxia (HCC) (Primary Dx); 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HCC); S/P AVR; Peritonitis due to fungus (HCC); ESRD on hemodialysis (CMS/HCC) (HCC); 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, 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); History of abdominal surgery Start: 12-06-2024 End: 12-06-2024 ambulatory Sydni Husain CERTIFIED FLEX ENDOSCOPE REPROCESSOR [employer] Work Phone: [facility] [employer] Infectious Disease - [place] Start: 12-04-2024 End: 12-04-2024 Admission to same day surgery center Sydni Watson Rodrigue CERTIFIED FLEX ENDOSCOPE REPROCESSOR [employer] Work Phone: [facility] [employer] Infectious Disease - [place] Comment on above: Acute respiratory fa ilure with hypoxia (HCC) (Primary Dx); 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HCC); S/P AVR; Peritonitis due to fungus (HCC); ESRD on hemodialysis (CMS/HCC) (HCC); 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, 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); History of abdominal surgery Start: 12-04-2024 End: 12-04-2024 ambulatory Sydni Husain CERTIFIED FLEX ENDOSCOPE REPROCESSOR [employer] Work Phone: [facility] [employer] Infectious Disease - [place] Comment on above: Atypical atrial flut ter (HCC) (Primary Dx) Start: 12-01-2024 End: 12-01-2024 Admission to same day surgery center Sydni Watson Rodrigue CERTIFIED FLEX ENDOSCOPE REPROCESSOR [employer] Work Phone: [facility]ious Disease - [place] Comment on above: Acute respiratory fa ilure with hypoxia (HCC) (Primary Dx); 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HCC); S/P AVR; Peritonitis due to fungus (HCC); ESRD on hemodialysis (CMS/HCC) (HCC); 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, 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); Leg DVT (deep venous thromboembolism), acute, left (HCC); History of abdominal surgery Start: 12-01-2024 End: 12-01-2024 ambulatory Jefferson Nathan MD Work Phone: [facility] Lung Nodule [facility] Comment on above: Atypical atrial flut ter (HCC) (Primary Dx) Start: 12-01-2024 End: 12-01-2024 Patient encounter procedure Jefferson Nathan MD Work Phone: [facility] Lung Nodule [facility] Comment on above: Acute respiratory fa ilure with hypoxia (HCC) (Primary Dx); 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HCC); Ventilator dependent (HCC); Pulmonary embolism, other, unspecified chronicity, unspecified whether acute cor pulmonale present (HCC); S/P AVR Start: 11-30-2024 End: 11-30-2024 Admission to same day surgery center Sydni Husain APRN - [employer] Work Phone: [facility] Infectious Disease - [place] Comment on above: Acute respiratory fa ilure with hypoxia (HCC) (Primary Dx); 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HCC); S/P AVR; Peritonitis due to fungus (HCC); ESRD on hemodialysis (CMS/HCC) (HCC); 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, 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); Leg DVT (deep venous thromboembolism), acute, left (HCC); History of abdominal surgery Start: 11-30-2024 End: 11-30-2024 ambulatory Sydni Husain APRN [employer] Work Phone: [facility] Infectious Disease - [place] Comment on above: Acute respiratory fa ilure with hypoxia (HCC) (Primary Dx); 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HCC); Ventilator dependent (HCC); Pulmonary embolism, other, unspecified chronicity, unspecified whether acute cor pulmonale present (HCC); S/P AVR; Tracheostomy dependent (HCC); Chronic bronchitis, unspecified chronic bronchitis type (HCC); ESRD on hemodialysis (CMS/HCC) (HCC) Start: 11-29-2024 End: 11-30-2024 Admission to same day surgery center Sydni Husain APRN [employer] Work Phone: [facility] Infectious Disease - [place] Comment on above: Peritonitis due to f ungus (HCC) (Primary Dx); History of abdominal surgery; S/P AVR; 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, 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); Leg DVT (deep venous thromboembolism), acute, left (HCC); Anemia, unspecified type Start: 11-29-2024 End: 11-30-2024 ambulatory Jefferson Nathan MD Work Phone: [facility] Pulmonary and Sleep Medicine - [place] [...] Telephone encounter Jefferson Nathan MD Work Phone: [facility] Pulmonary and Sleep Medicine [facility] Comment on above: Advice Only Start: 10-22-2024 End: 10-22-2024 ambulatory [facility] Start: 10-21-2024 End: 10-25-2024 ambulatory [facility] Start: 10-16-2024 End: 10-16-2024 Telephone encounter Shira Forrester CNP Work Phone: [facility] Gastroenterology [facility] Comment on above: Care Coordination Start: 10-13-2024 End: 10-13-2024 Telephone encounter Lan Carpenter PA-C Work Phone: [facility] Start: 10-12-2024 End: 10-12-2024 Evaluation and management of inpatient Vincent Wilson MD Work Phone: [facility] Start: 10-03-2024 End: 10-03-2024 Emergency department patient visit JESEOLIVIA FRANK [facility] Start: 10-03-2024 End: 10-03-2024 Subsequent hospital visit by physician [facility] Exam Room [address] [facility] [address] Comment on above: Arrived Start: 10-03-2024 End: 11-28-2024 Evaluation and management of inpatient LEILANI TRONCOSO [facility] Start: 08-28-2024 End: 08-28-2024 ambulatory JR SHAH [facility] Start: 08-28-2024 End: 08-28-2024 Office outpatient visit 25 minutes Jr Shah MD Work Phone: [facility] Cardiology - [place] Comment on above: Paroxysmal A-fib (CM S/HCC) (HCC) (Primary Dx); Nonrheumatic aortic valve stenosis; Tobacco abuse; Alcohol use disorder in remission Start: 05-10-2024 Chart abstracting Alan Barroso RN [facility] Comment on above: Dialysis status upda te Start: 04-12-2024 Telephone encounter [facility] Coordinators Work Phone: Transplant Center Start: 02-12-2024 Telephone encounter Jr Shah MD Work Phone: [facility] Central Scheduling Comment on above: unable to contact pa tient unable to contact pa tient to schedule Start: 11-12-2023 End: 11-12-2023 Office outpatient visit 25 minutes Quiana Contreras CERTIFIED FLEX ENDOSCOPE REPROCESSOR - [employer] Work Phone: [facility] Cardiology Comment on above: Nonrheumatic aortic valve stenosis (Primary Dx); Paroxysmal A-fib (CMS/HCC) (HCC); Primary hypertension; Calcification of abdominal aorta (HCC); Tobacco abuse; ESRD on hemodialysis (CMS/HCC) (HCC) Start: 10-14-2023 Telephone encounter Sasha weeks CERTIFIED FLEX ENDOSCOPE REPROCESSOR - [employer] Work Phone: [facility] Cardiology Comment on above: Cancelled Appointmen t Start: 09-07-2023 Transcribe Orders Fransisco toro CERTIFIED FLEX ENDOSCOPE REPROCESSOR Work Phone: [facility] Central Scheduling Comment on above: Personal history of nicotine dependence (Primary Dx); Nicotine dependence, cigarettes, uncomplicated Start: 08-18-2023 Telephone encounter Quiana forman CERTIFIED FLEX ENDOSCOPE REPROCESSOR - [employer] Work Phone: [facility] Cardiology Start: 08-16-2023 End: 08-17-2023 Evaluation and management of inpatient Dangelo Horne DO Work Phone: [facility] Comment on above: New onset a-fib (CMS /HCC) (HCC) (Primary Dx); Atrial fibrillation, persistent (HCC) Start: 05-01-2023 End: 05-01-2023 Emergency department patient visit Jese Frank MD Work Phone: [facility] Comment on above: Skin sore (Primary D x); ESRD (end stage renal disease) on dialysis (HCC) Start: 12-30-2021 Telephone encounter [facility] Comment [facility]: Procedure please advise Start: 12-29-2021 ambulatory Rudy Painter MD Work Phone: Ambulatory Surgery Start: 12-29-2021 Telephone encounter Cecilia galo PA-C Work Phone: [facility] Comment on above: cecilia carlson Start: 12-25-2021 End: 12-25-2021 Patient encounter procedure Rudy Painter MD Work Phone: [facility] Comment on above: Acute blood loss ane ruth (Primary Dx); Rectal bleeding Start: 09-15-2021 End: 09-15-2021 Subsequent hospital visit by physician Cindy Patel MD Work Phone: [facility] Cath & IR Lab Start: 10-17-2020 End: 10-17-2020 Subsequent hospital visit by physician Cindy Patel Work Phone: [facility] Cindy Dept Start: 03-13-2020 End: 03-13-2020 Subsequent hospital visit by physician [facility] [place] [facility] LAB E[facility] Comment on above: Preoperative testing [Z01.818] Start: 10-19-2019 End: 10-27-2019 Evaluation and management of inpatient WallyTaryn Nieves DO Work Phone: [facility] Comment on above: Acute kidney injury (HCC) (Primary Dx); Uncontrolled hypertension; Normocytic anemia; Angioedema, initial encounter; Hyperkalemia; Metabolic acidosis; Rectal bleeding Procedures Date Procedure Procedure Detail Performing Clinician Start: 03-05-2025 End: 03-05-2025 Basic metabolic panel calcium total Minor Collier MD Work Phone: Start: 03-05-2025 Basic metabolic pane l calcium total Anthony Hurtado DO Work Phone: Start: 03-04-2025 Prothrombin time Anthony Hurtado DO Work Phone: Start: 03-04-2025 Basic metabolic pane l calcium total Anthony Hurtado DO Work Phone: Start: 03-03-2025 Basic [...] 02-26-2025 Assay of troponin quantitative Rudolph J Fred DO Work Phone: Start: 02-26-2025 Assay of troponin quantitative Rudolph J Moei DO Work Phone: Start: 02-25-2025 Prothrombin time [...] MD Work Phone: Start: 02-21-2025 Antibody screen [facility]KAL[facility] DAY Comment on above: Performed By: #### L [id number] ####Blow Pit Operator: DOMENICA JARA ([phone])[facility] B[facility] ([facility])[address] [place] [address] Start: 02-21-2025 C-reactive protein Karena Jett MD [...] Start: 01-30-2025 End: 01-30-2025 Blood count hematocrit Chantlel Laquidara DO Work Phone: Start: 01-30-2025 Glucose quantitative blood xcpt reagent strip Barb Dawkins MD Work Phone: Start: 01-30-2025 Compatibility each u nit electronic aSngeeta Reyes DO Start: 01-30-2025 Basic metabolic pane [...] Start: 01-28-2025 Blood count complete automated Yifan Dupont Stewart DO Work Phone: Start: 01-27-2025 Thromboplastin [...] 01-26-2025 Compatibility each u nit electronic Sangeetamk Sanchess DO Start: 01-26-2025 End: 01-26-2025 TRANSFUSE RED BLOOD CELLS Sangeeta Anthony olguin DO Start: 01-26-2025 Basic metabolic pane l calcium total Chantell Laquidara DO Work Phone: Start: 01-25-2025 Blood count hematocrit Chantell Laquidara DO Work Phone: Start: 01-25-2025 Thromboplastin time partial plasma/whole blood Noman Owens MD Work Phone: Start: 01-25-2025 Blood count hematocrit Yifan Riccirison DO Work Phone: Start: 01-25-2025 Radiologic exam swal low function contrast study Elly Jett MD Work Phone: Start: 01-25-2025 Blood count hematocrit Chantell Laquidara DO Work Phone: Start: 01-25-2025 Prothrombin time Elly Jett MD Work Phone: Start: 01-25-2025 Compatibility each u nit electronic Sangeeta Reyes DO Start: 01-25-2025 End: 01-25-2025 TRANSFUSE RED BLOOD CELLS Sangeeta olguin DO Start: 01-25-2025 Antibody screen [facility] DAY Comment on above: Performed By: #### L [id number] ####Blow Pit Operator: DOMENICA JARA ([phone])[facility] ([address] Start: 01-25-2025 Basic metabolic pane l [...] Start: 01-21-2025 Blood count complete automated Crystal Román Flores CERTIFIED FLEX ENDOSCOPE REPROCESSOR - [employer] Work Phone: Start: 01-21-2025 Glucose quantitative blood [...] surgery History of abd ominal surgery Sydni Huasin CERTIFIED FLEX ENDOSCOPE REPROCESSOR - [employer] Work Phone: Start: 10-12-2024 Insj non-tunneled ce ntral venous cath age 5 yr/> Rudolph German PHARMACY TECHNICIAN Start: 10-12-2024 IA AN CENTRAL LINE T RIPLE LUMEN Rudolph German PHARMACY TECHNICIAN Start: 10-12-2024 IA AN ELECTIVE ENDOTRACHEAL AIRWAY Rudolph German PHARMACY TECHNICIAN Start: 10-12-2024 Us vasc access sits vsl patency ndl entry Rudolph German PHARMACY TECHNICIAN Start: 10-12-2024 ANESTHESIA ARTERIAL LINE PLACEMENT Rudolph German PHARMACY TECHNICIAN Start: 10-03-2024 Ct head/brain w/o contrast [...] vaccination due to patient refusal Sasha Lemons CERTIFIED FLEX ENDOSCOPE REPROCESSOR - [employer] Work Phone: Start: 08-17-2023 Echo tthrc r-t 2d w/wom-mode compl spec&colr d Earlene Irving MD Work Phone: Start: 08-17-2023 Thyrotropin [Units/volume] in Serum or Plasma Lan Carpenter PA-C Work Phone: Start: 08-17-2023 Basic metabolic pane l calcium total Earlene Irving MD Work Phone: Start: 08-16-2023 End: 08-16-2023 Basic metabolic panel calcium total Sha Chandana Roberta [employer] Work Phone: Start: 08-16-2023 Radiologic exam ches t single view Sha Baltazar Roberta PA-[employer] Work Phone: Start: 08-16-2023 Ecg routine ecg w/le ast 12 lds i&r only Jakisaías Horne DO Work Phone: Start: 10-17-2020 Special treatments a nd procedures Cindy Patel Work Phone: Start: 03-13-2020 Ecg routine ecg w/le ast 12 lds trcg only w/o i&r [place] Provider Start: 03-13-2020 BASIC METABOLIC PNL Tati farooq (Controls Designer Youth Care Specialist) [facility] Work Phone: Start: 03-13-2020 CBC Darya (A prn Youth Care Specialist) Zachary Work Phone: Start: 03-13-2020 MDRD GFR Darya (A prn Youth Care Specialist) Zachary Work Phone: Start: 03-13-2020 PROTHROMBIN TIME/PT Tati farooq (Controls Designer Youth Care Specialist) Zachary Work Phone: Start: 10-27-2019 Basic metabolic [...] 10-22-2019 Basic metabolic panel calcium total Delon Gutierrez Jaskaran CERTIFIED FLEX ENDOSCOPE REPROCESSOR - [employer] Work Phone: Start: 10-22-2019 GLOMERULAR BASEMENT MEMBRANE (GBM) ANTIBODY IGG Randolph Euceda MD Work Phone: Start: 10-21-2019 Radiologic exam abdo men 1 view Brett Encarnacion MD Work Phone: Start: 10-21-2019 End: 10-21-2019 Dup-scan artl shayan abdl/pel/scrot&/rpr orgn com Brett Encarnacion MD Work Phone: Start: 10-21-2019 Basic metabolic pane l calcium total Delon Matt Jaskaran CERTIFIED FLEX ENDOSCOPE REPROCESSOR - [employer] Work Phone: Start: 10-20-2019 Basic metabolic pane l calcium total Brett Encarnacion MD Work Phone: Start: 10-20-2019 TRANSFUSE RED BLOOD CELLS Delon Matt Jaskaran CERTIFIED FLEX ENDOSCOPE REPROCESSOR - [employer] Work Phone: Start: 10-20-2019 TRANSFUSE RED BLOOD CELLS Delon Matt Jaskaran CERTIFIED FLEX ENDOSCOPE REPROCESSOR - [employer]ER Work Phone: Start: 10-20-2019 Blood count hemoglobin Delon A Jaskaran CERTIFIED FLEX ENDOSCOPE REPROCESSOR - [employer] Work Phone: Start: 10-20-2019 Basic metabolic pane l calcium total Delon Jessica CERTIFIED FLEX ENDOSCOPE REPROCESSOR - [employer] Work Phone: Start: 10-20-2019 RBC morphology findi ng Nom (Bld) Delon Matt Jaskaran CERTIFIED FLEX ENDOSCOPE REPROCESSOR - [employer] Work Phone: Start: 10-19-2019 Basic metabolic pane [...] Phone: Comment on above: Test Performed by [facility], [address] [place], [place] [address] Start: 10-19-2019 End: 10-19-2019 ADD ON LAB [...] surgery History of abdom inal surgery Sydni Walter Rodrigue CERTIFIED FLEX ENDOSCOPE REPROCESSOR - [employer] Work Phone: H/O: surgery History of abdom inal surgery Sydni C Rodrigue CERTIFIED FLEX ENDOSCOPE REPROCESSOR - [employer] Work Phone: H/O: surgery History of abdom inal surgery Sydni Walter Rodrigue CERTIFIED FLEX ENDOSCOPE REPROCESSOR - [employer] Work Phone: H/O: surgery History of abdom inal surgery Sydni C Rodrigue CERTIFIED FLEX ENDOSCOPE REPROCESSOR - [employer] Work Phone: H/O: surgery History of abdom inal surgery Sydni Walter Rodrigue CERTIFIED FLEX ENDOSCOPE REPROCESSOR - [employer]ER Work Phone: H/O: surgery History of abdom inal surgery Sydni Walter Rodrigue CERTIFIED FLEX ENDOSCOPE REPROCESSOR - [employer]ER Work Phone: Vaccine refused by patient Missed vaccination due to patient refusal Palak Alya DO Work Phone: Plan of Treatment Date Care Activity Detail Author Start: 2040 RSV Immunization for Adults (1 - 1-dose 75+ series) RSV Immunization for Adults (1 - 1-dose 75+ series) [facility] [employer] Start: 2040 [facility] [employer] Start: 01-24-2035 Screening for malignant neoplasm of colon [facility] [employer] Start: 03-05-2026 Creatinine measurement [facility] [employer] Start: 03-05-2026 Potassium measurement [facility] [employer] Start: 02-23-2026 Creatinine measurement Creatinine Level [facility] [employer] Start: 02-23-2026 Echocardiography Echocardiogram [facility] [employer] Start: 02-23-2026 Potassium measurement Potassium Level [facility] [employer] Start: 02-23-2026 [facility] [employer] Start: 02-12-2026 Creatinine measurement Creatinine Level [facility] [employer] Start: 02-12-2026 Potassium measurement Potassium Level [facility] [employer] Start: 02-01-2026 Creatinine measurement [facility] [employer] Start: 02-01-2026 Potassium measurement [facility] [employer] Start: 01-16-2026 Creatinine measurement Creatinine Level [facility] Start: 01-16-2026 Potassium measurement Potassium Level [facility] Start: 01-15-2026 Creatinine measurement Creatinine Level [facility] Start: 01-15-2026 Potassium measurement Potassium Level [facility] Start: 01-12-2026 Creatinine measurement Creatinine Level [facility] Start: 01-12-2026 Potassium measurement Potassium Level [facility] Start: 01-08-2026 Creatinine measurement Creatinine Level [facility] Start: 01-08-2026 Potassium measurement Potassium Level [facility] Start: 01-05-2026 Potassium measurement Potassium Level [facility] Start: 01-01-2026 Creatinine measurement Creatinine Level [facility] Start: 01-01-2026 Potassium measurement Potassium Level [facility] Start: 12-30-2025 Creatinine measurement Creatinine Level [facility] Start: 12-30-2025 Potassium measurement Potassium Level [facility] Start: 12-25-2025 Creatinine measurement Creatinine Level [facility] Start: 12-25-2025 Potassium measurement Potassium Level [facility] Start: 12-22-2025 Creatinine measurement Creatinine Level [facility] Start: 12-22-2025 Potassium measurement Potassium Level [facility] Start: 12-18-2025 Creatinine measurement Creatinine Level [facility] Start: 12-18-2025 Potassium measurement Potassium Level [facility] Start: 12-15-2025 Creatinine measurement Creatinine Level [facility] Start: 12-15-2025 Potassium measurement Potassium Level [facility] Start: 12-11-2025 Creatinine measurement Creatinine Level [facility] Start: 12-11-2025 Potassium measurement Potassium Level [facility] Start: 12-04-2025 Creatinine measurement Creatinine Level [facility] Start: 12-04-2025 Potassium measurement Potassium Level [facility] Start: 12-01-2025 Creatinine measurement Creatinine Level [facility] Start: 12-01-2025 Potassium measurement Potassium Level [facility] Start: 11-30-2025 Creatinine measurement Creatinine Level [facility] Start: 11-30-2025 Potassium measurement Potassium Level [facility] Start: 11-29-2025 Creatinine measurement Creatinine Level [facility] Start: 11-29-2025 Potassium measurement Potassium Level [facility] Start: 11-24-2025 Echocardiography Echocardiogram [facility] Start: 11-24-2025 [facility] Start: 2025 RSV Immunization aged 60 or older (1 - 1-dose 60+ series) RSV Immunization aged 60 or older (1 - 1-dose 60+ series) [facility] Start: 11-03-2025 Creatinine measurement Creatinine Level [facility] Start: 11-03-2025 Potassium measurement Potassium Level [facility] Start: 11-02-2025 Echocardiography Echocardiogram [facility] Start: 10-11-2025 Screening for malignant neoplasm of lung [facility] Start: 05-28-2025 Influenza vaccination Influenza Vaccine (Season Ended) [facility] Start: 05-28-2025 [facility] Start: 04-05-2025 End: 04-05-2025 ambulatory [facility] Start: 04-05-2025 End: 04-05-2025 Patient encounter procedure 04/05/2025 1:00 PM EDT Office Visit [facility] [address] [place] [id number] Sophia Lara, CERTIFIED FLEX ENDOSCOPE REPROCESSOR - [employer]ER [address] [place] [address] [facility] Start: 04-03-2025 End: 04-03-2025 ambulatory [facility] Start: 04-03-2025 End: 04-03-2025 Patient encounter procedure 04/03/2025 10:45 AM EDT [facility] [address] [place] [address] Zoe Valadez, CERTIFIED FLEX ENDOSCOPE REPROCESSOR - [employer]ER [address] [facility] [place] [phone] [facility] Start: 03-26-2025 End: 02-23-2026 CT Chest WO contrast CT chest wo IV contrast Imaging Routine Hemoptysis Expected: 03/26/2025, Expires: 02/23/2026 [facility] Work Phone: Comment on above: Expected: 03/26/2025, Expires: Start: 02-15-2025 End: 02-15-2025 ambulatory [facility] Neuroscience [facility] Start: 02-15-2025 End: 02-15-2025 Patient encounter procedure [facility]science [facility] Start: 02-14-2025 End: 02-14-2025 ambulatory [facility] Infectious Disease [facility] [place] Start: 02-14-2025 End: 02-14-2025 Patient encounter procedure [facility] Start: 12-25-2024 End: 12-25-2024 Patient encounter procedure 12/25/2024 10:00 AM EDT Office Visit [facility] [address] [place] [address] Sophai Lara APRN - SALVAGER [address] [place] [address] [facility] Start: 12-18-2024 End: 12-18-2024 Telemedicine consultation with patient 12/18/2024 1:00 PM EDT Telemedicine [facility] Cardiovascular Thoracic Surgery [place] [address] [place] [phone] Oisris Terrell APRN - SALVAGER [address] [place] [address] [facility] [place] Start: 10-09-2024 End: 10-09-2024 Patient encounter procedure 10/09/2024 3:00 PM EST Appointment [facility] [address] [place] [id number] Jr Shah MD [address] [facility] [address] [place] [address] [facility] [address] [facility] Start: 09-27-2024 Medicare Advantage Annual Wellness Visit Medicare Advantage Annual Wellness Visit [facility] Start: 09-27-2024 [facility] Start: 09-13-2024 End: 09-13-2024 Patient encounter procedure 09/13/2024 3:00 PM EST Appointment [facility] [address] [facility] [address] [place] [phone] Jr Shah MD [address] [facility] [address] [place], [place] [address] [facility] Start: 09-11-2024 End: 08-28-2026 US Heart Transthoracic Transthoracic echocardiogram (TTE) complete with contrast, bubble, strain, and 3D PRN CV Echocardiography Routine Nonrheumatic aortic valve stenosis Expected: 09/11/2024 (Approximate), Expires: 08/28/2026 [facility] [employer] [facility] Work Phone: Comment on above: Expected: 09/11/2024 (Approximate), Expi res: 08/28/2026 Start: 08-17-2024 Thyroid stimulating hormone measurement TSH Level [facility] Start: 05-28-2024 COVID-19 Vaccine ( season) COVID-19 Vaccine () [facility] Start: 05-28-2024 Influenza vaccination [facility] Start: 05-28-2024 [facility] Start: 02-07-2024 End: 02-07-2024 Patient encounter procedure [facility] Start: 11-29-2023 End: 11-29-2023 Patient encounter procedure 11/29/2023 3:00 PM EST Appointment [facility] [address] [place] [phone] Fransisco Pineda, CERTIFIED FLEX ENDOSCOPE REPROCESSOR [address] [address] [facility] Start: 11-24-2023 End: 11-24-2023 Patient encounter procedure 11/24/2023 1:30 PM EST Office Visit [facility] Dermatology [address] [facility] [address] [place] [phone] Madhuri De La Rosa MD [address] [facility] [place], [place] [address] [facility] Dermat[facility] Start: 09-27-2023 Behavioral Health Screening Behavioral Health Screening [facility] Start: 09-27-2023 Medicare Advantage Annual Wellness Visit Medicare Advantage Annual Wellness Visit [facility] Start: 09-07-2023 End: 09-07-2024 CT Chest for screening WO contrast CT lung screening low dose Imaging Routine Nicotine dependence, cigarettes, uncomplicated Personal history of nicotine dependence Expected: 09/07/2023, Expires: 09/07/2024 [facility] Work Phone: Comment on above: Expected: 09/07/2023, Expires: Start: 05-28-2023 COVID-19 Vaccine ( season) COVID-19 Vaccine () [facility] Start: 05-28-2023 Influenza vaccination Influenza Vaccine (#1) [facility] Start: 05-10-2023 DIABETES SCREEN DIABETES SCREEN [facility] Start: 05-10-2023 Diabetes Screening Diabetes Screening [facility] Start: 03-13-2023 DIABETES SCREEN DIABETES SCREEN [facility] Start: 05-28-2022 Influenza [facility] Start: 10-22-2021 End: 10-22-2021 Patient encounter procedure 10/22/2021 Office Visit Dermatology Madhuri De La Rosa MD [address] [facility] [place] [address] [facility] Start: 05-28-2021 Influenza vaccination [facility] Start: 05-20-2021 Hepatitis B Vaccines (1 of 1 - Risk Dialysis 4-dose series) Hepatitis B Vaccines (1 of 1 - Risk Dialysis 4-dose series) [facility] Start: 05-20-2021 [facility] Start: 05-10-2021 HEMOGLOBIN/HEMATOCRIT HEMOGLOBIN/HEMATOCRIT [facility] Start: 05-10-2021 SERUM CREATININE SERUM CREATININE [facility] Start: 12-08-2020 Annual Wellness Visit (AWV) Annual Wellness Visit (AWV) [facility] Start: 2020 PROSTATE CANCER SCREENING DISCUSSION PROSTATE CANCER SCREENING DISCUSSION [facility] Start: 2020 Prostate specific antigen measurement Prostate Cancer Screening Discussion [facility] Start: 11-12-2020 End: 11-12-2020 Office Visit 11/12/2020 Office Visit Dermatology Madhuri De La Rosa MD [address] [facility] [place] [address] [phone] [facility] Start: 10-19-2020 Screening for malignant neoplasm of colon [facility] Start: 05-28-2020 Influenza vaccination [facility] Start: 05-28-2019 Influenza vaccination Flu vaccine (#1) [facility] Work Phone: Start: 2015 Screening for malignant neoplasm of colon Colon cancer screen colonoscopy [place], [place] Start: 2015 Shingles Vaccine (1 of 2) Shingles Vaccine (1 of 2) [facility] Start: 2015 SHINGRIX VACCINE (1 of 2) SHINGRIX VACCINE (1 of 2) [facility] Start: 2015 Tuberculosis screening COLORECTAL CANCER SCREENING,SEE MODIFIER [facility] Start: 2015 Zoster Vaccines (1 of 2) Zoster Vaccines (1 of 2) [facility] Start: 2015 [facility] Start: 2010 COLOGUARD (FIT-DNA) COLOGUARD (FIT-DNA) [facility] Start: 2010 Colonoscopy COLONOSCOPY [facility] Start: 2010 COLORECTAL CANCER SCREENING COLORECTAL CANCER SCREENING [facility] Start: [address] COLONOGRAPHY [facility] Start: 2010 FECAL OCCULT BLOOD FECAL OCCULT BLOOD [facility] Start: 2010 Screening for malignant neoplasm of colon [facility] Start: 2010 SIGMOIDOSCOPY SIGMOIDOSCOPY [facility] Start: 2005 Diabetes screen Diabetes screen [place], [place] Start: 2005 Lipid panel Lipid screen [facility] Start: 2000 Diabetes screen Diabetes screen [facility] Start: 2000 Lipid panel Lipid Screening [facility] Start: 2000 LIPID SCREEN LIPID SCREEN [facility] Start: 1984 DTaP/Tdap/Td vaccine (1 - Tdap) DTaP/Tdap/Td vaccine (1 - Tdap) [facility] Start: 1984 DTaP/Tdap/Td Vaccines (1 - Tdap) DTaP/Tdap/Td Vaccines (1 - Tdap) [facility] Start: 1984 Pneumococcal Vaccine: 50+ Years (1 of 2 - PCV) Pneumococcal Vaccine: 50+ Years (1 of 2 - PCV) [facility] Start: 1984 Urine microalbumin profile [facility] Start: 1984 [facility] Start: 1983 ANNUAL PCP TEAM CHRONIC DISEASE VISIT ANNUAL PCP TEAM CHRONIC DISEASE VISIT [facility] Start: 1983 Anxiety Screening Anxiety Screening [facility] Start: 1983 Depression Screening Depression Screening [facility] Start: 1983 Diabetes mellitus screening [facility] Start: 1983 HEPATITIS C SCREENING HEPATITIS C SCREENING [facility] Start: 1983 HIV SCREENING HIV SCREENING [facility] Start: 1983 HIV screening HIV Screening [facility] Start: 1977 Adult depression screening assessment DEPRESSION SCREENING [facility] Start: 1977 [facility] Start: 1971 Pneumococcal 0-64 years Vaccine (1 of 1 - PPSV23) Pneumococcal 0-64 years Vaccine (1 of 1 - PPSV23) [place], [place] Start: 1971 Pneumococcal 0-64 years Vaccine (1 of 2 - PPSV23) Pneumococcal 0-64 years Vaccine (1 of 2 - PPSV23) [facility] Start: 1971 Pneumococcal vaccination Pneumococcal Vaccine (1 of 2 - PCV) [facility] Start: 1971 Pneumococcal Vaccine: Pediatrics (0 to 5 Years) and At-Risk Patients (6 to 64 Years) (1 - PCV) Pneumococcal Vaccine: Pediatrics (0 to 5 Years) and At-Risk Patients (6 to 64 Years) (1 - PCV) [facility] Start: 1971 Pneumococcal Vaccine: Pediatrics (0 to 5 Years) and At-Risk Patients (6 to 64 Years) (1 of 2 - PCV) Pneumococcal Vaccine: Pediatrics (0 to 5 Years) and At-Risk Patients (6 to 64 Years) (1 of 2 - PCV) [facility] Start: 1970 COVID-19 Vaccine (1) COVID-19 Vaccine (1) [facility] Start: 1966 MMR Vaccines (1 of 1 - Standard series) MMR Vaccines (1 of 1 - Standard series) [facility] Start: 1966 [facility] Start: 05-17-1966 COVID-19 Vaccine (#1) COVID-19 Vaccine (#1) [facility] Start: 05-17-1966 Examination of skin Derm Melanoma Skin Check [facility] Start: 1965 Lipid panel [facility] Start: 1965 Medicare Advantage Annual Wellness Visit (AWV) Medicare Advantage Annual Wellness Visit (AWV) [facility] Start: 1965 Screening for malignant neoplasm of colon [facility] [employer] Basic metabolic 2000 panel - Serum or Plasma Basic Metabolic Panel Lab Routine Daily until discontinued starting 10/23/2019, 5 completed [facility] Work Phone: Comment on above: Daily until discontinued starting 2019, 5 completed CBC W Auto Different ial panel - Blood CBC Auto Differential Lab Routine Daily until discontinued starting 10/23/2019, 5 completed [facility] Work Phone: Comment on above: Daily until discontinued starting 2019, 5 completed End: 12-25-2022 COLONOSCOPY DIAGNOSTIC COLONOSCOPY DIAGNOSTIC Endoscopy Routine Acute blood loss anemia Rectal bleeding 1 Occurrences starting 12/25/2021 until 12/25/2022 [facility] Work Phone: Comment on above: 1 Occurrences starting 12/25/2021 until 12/25/2022 End: 12-30-2022 COLONOSCOPY DIAGNOSTIC COLONOSCOPY DIAGNOSTIC Endoscopy Routine Other iron deficiency anemia Rectal bleeding 1 Occurrences starting 12/30/2021 until 12/30/2022 [facility] Work Phone: Comment on above: 1 Occurrences starting 12/30/2021 until 12/30/2022 Electrocardiogram EKG BIC 2019 3:36 PM EDT [facility] End: 01-22-2025 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 [facility] [employer] Work Phone: End: 10-19-2019 Hemodialysis inpatient Hemodialysis inpatient Dialysis Routine One Time for 1 Occurrences starting 10/19/2019 until 10/19/2019 [facility] Work Phone: Comment on above: One Time for 1 Occurrences starting 09/28 until 10/19/2019 End: 10-21-2019 Hemodialysis inpatient Hemodialysis inpatient Dialysis Routine One Time for 1 Occurrences starting 10/21/2019 until 10/21/2019 [facility] Work Phone: Comment on above: One Time for 1 Occurrences starting 09/28 until 10/21/2019 End: 10-23-2019 Hemodialysis inpatient Hemodialysis inpatient Dialysis Routine One Time for 1 Occurrences starting 10/23/2019 until 10/23/2019 [facility] Work Phone: Comment on above: One Time for 1 Occurrences starting 09/28 until 10/23/2019 Hemodialysis inpatient Hemodialy sis inpatient Dialysis Routine Every MWF until discontinued starting 10/27/2019 [facility] Work Phone: Comment on above: Every MWF until discontinued starting End: 01-26-2025 [facility]: End: 02-21-2025 Legionella and Streptococcus Urine Antigen [facility] Work Phone: Magnesium [Mass/volu me] in Serum or Plasma MAGNESIUM Lab Routine Daily until discontinued starting 10/23/2019, 5 completed [facility] Work Phone: Comment on above: Daily until discontinued starting 2019, 5 completed End: 01-22-2025 Peripheral blood smear [facility] End: 01-22-2025 Peripheral Blood Smear [facility] [facility] Peripheral blood smear [employer] Peripheral Blood Smear [employer] Phosphate [Mass/volu me] in Serum or Plasma Phosphorus Lab Routine Daily until discontinued starting 10/23/2019, 5 completed [employer] Work Phone: Comment on above: Daily until discontinued starting 2019, 5 completed End: 09-15-2021 Special treatments and procedures [facility] Work Phone: Comment on above: Once for 1 Occurrences starting 09/15/20 until 09/15/2021 End: 10-26-2019 Surgical Pathology Surgical Pathology Lab STAT Once for 1 Occurrences starting 10/26/2019 until 10/26/2019 [employer] Work Phone: Comment on above: Once for 1 Occurrences starting 10/26/19 20 until 10/26/2019 Surgical Pathology Surgical Path ology Lab STAT 10/26/2019 10:00 AM EST [employer] Work Phone: End: 02-21-2025 Urine Hold Cup [facility] Immunizations Immunization Date Immunization Notes Care Provider Rob ramesh 05-20-2020 hepatitis B vaccine, unspecified formulation Jese Frank MD Work Phone: [facility] 01-19-2020 hepatitis B vaccine, unspecified formulation Jese Frank MD Work Phone: [facility] 12-19-2019 hepatitis B vaccine, unspecified formulation Jese Frank MD Work Phone: [facility] 11-15-2019 hepatitis B vaccine, unspecified formulation Jese Frank MD Work Phone: [facility] Payers Date Payer Category Payer Self-pay 2023 Medicaid HMO [employer] MEDICAID ONLY [id number] 2023 Medicare HMO [id number] 2023 Medicare [id number] 2020 Medicaid [id number] 2020 Medicare [id number] 2020 Medicare [id number] 2020 Unknown [id number] 2020 Medicaid MEDICAID [facility] MEDICAID [id number] 2020-Present Medicaid [id number] 2019 Medicare MEDICARE MEDICAR E A AND B [id number] 2019-Present [place], [place] Medicare [id number] Unknown [id number] Unknown [id number] Unknown [id number] Unknown [id number] Social History Date Type Detail Facility Start: 1993 End: 10-13-2024 Tobacco smoking status AKIS Current every day smoker [facility] Start: 1993 History of tobacco use Cigarette Smoker [facility] Work Phone: Start: 03-13-2020 End: 02-21-2025 Cigarettes smoked current (pack per day) - Reported [facility] Work Phone: Start: 03-13-2020 End: 02-20-2025 Tobacco use and exposure Never used [facility] Start: 03-13-2020 End: 08-16-2023 Alcohol intake Current drinker of alcohol (finding) [facility] Work Phone: Start: 1965 Sex Assigned At Not on file [facility] Work Phone: Start: 12-15-2021 End: 05-01-2023 Exposure to SARS-CoV-2 (event) Not sure [facility] Start: 10-19-2019 Alcohol Comment on weekends [facility] Work Phone: Start: 12-25-2021 End: 03-04-2025 Alcohol intake Ex-drinker (finding) [facility] Start: 1965 Sex Assigned At Male [facility] Start: 05-01-2023 End: 02-21-2025 Alcohol Use Disorder Identification Test - Consumption [AUDIT-C] [facility] How often to you hav e a drink containing alcohol? Never [facility] How many standard dr inks containing alcohol do you have on a typical day? Patient does not drink [facility] Start: 11-15-2020 Gender identity Identifies as male gender (finding) [facility] Start: 08-10-2020 Sexual orientation Heterosexual (finding) [facility] Start: 04-27-2022 Sex Male (finding) [facility] History of tobacco use Passive smoker [facility] Start: 10-13-2024 Tobacco Comment Started at 28, 3 PPD, tapered down to 1 PPD in 2020 after quitting drinking. 10/27/24 [facility] Tobacco smoking stat us [facility] Unknown if ever smoked [facility] Work Phone: Start: 02-20-2025 Tobacco smoking status NHIS Ex-smoker [facility] Start: 1993 History of tobacco use Current smoker [facility] How often do you nee d to have someone help you when you read instructions, pamphlets, or other written material from your doctor or pharmacy [SILS] Sometimes [facility] Has the [employer], [employer], [employer], or water [employer] threatened to shut off services in your home in past 12Mo No [facility] [employer] Do you feel stress - tense, restless, nervous, or anxious, or unable to sleep at night because your mind is troubled all the time - these days [OSQ] To some extent [facility] [employer] (I/We) worried wheth er (my/our) food would run out before (I/we) got money to buy more. Never true [facility] Medical Equipment Procedure Code Equipment Code Equipment Origin al Text Equipment Identifier Dates [id number] Start: 10-12-2024 [id number] Start: 10-09-2024 [id number] Start: 10-14-2024 [id number] Start: 10-14-2024 [id number] Start: 10-14-2024 [id number] Start: 10-14-2024 [id number] Start: 10-14-2024 [id number] Start: 10-14-2024 [id number] Start: 10-14-2024 [id number] Start: 11-03-2024 [id number] Start: 01-30-2025 Functional Status Date Assessment Result Facility [facility] Clinical Notes 10-24-2019 to 03-08-2025 Christelle Eckert RN - 03/08/2025 1:32 PM EDTTelephone Encounter - Stuart Anderson - 03/08/2025 1:03 PM EDTTelephone Encounter - Stuart Anderson - 03/08/2025 1:03 PM EDTProcedure Summary Note Date & Type Note Facility 03-08-2025 History of Presen t illness Narrative Pt was followed by the Palliative Care Team during hospitalization at [facility]. Provider is recommending continued Palliative follow up in the community. Referral made too [facility] Palliative Care Team, faxed info to [phone] documented in this encounter [facility] 03-08-2025 Telephone encount er Note 2nd attempt called and spoke to the Alyssa the Nurse for the patient at the facility he lives at. She states Sabino is the person who schedules the appointments and she is on vacation and wont be back till next Wednesday. I will try again next wednesday [facility] 03-08-2025 Miscellaneous Notes Formattin g of this note might be different from the original. 2nd attempt called and spoke to the Alyssa the Nurse for the patient at the facility he lives at. She states Sabino is the person who schedules the appointments and she is on vacation and wont be back till wednesday. I will try again next wednesday Called [...] this? Thank you documented in this encounter [facility] 03-05-2025 History of Presen t illness Narrative Images from the original note were not included. PHYSICAL THERAPY [facility] Treatment Note Name/MRN: Jair Snyder ([id number]) Date of : 1965 Age: 59 y.o. Room[facility]: [facility] A Discharge Recommendation: Custodial Facility Equipment Needed: (tbd) Assessment Increased time [...] (Temporal) Resp 20 Ht 1.778 m (5' 10") Wt 60.8 kg (134 lb) SpO2 100% [...] any questions or concerns Bree Molina APRN SALVAGER A-G LAST CODE STRIPER [facility] [phone] I reviewed with CERTIFIED FLEX ENDOSCOPE REPROCESSOR-SALVAGER the medical history and the findings on physical examination. I discussed the patient s diagnosis and concur with the treatment plan as documented in his note. Please call [phone] or message me through [employer] with any questions or concerns. [facility] Anticoagulation Management Service ([facility]) Inpatient Warfarin Consult HPI: Jun Snyder is a 59 y.o. male admitted on 02/20/2025 for Hemoptysis [R04.2]. Medical History[1] Patient is on warfarin for mechanical AVR and has a goal INR 2.0 - 3.0. Patient was referred to [facility], but so far has been managed at facilities, most recently [facility]. Pt's home dose of warfarin is 1.5mg [...] RPh [facility] Consult Service is available daily [phone] via [employer]. [1] Past Medical History: Diagnosis Date Acute renal failure (ARF) ([facility]) 10/19/2019 Anemia 12/30/2021 Calcification of abdominal aorta ([facility]) 10/08/202309/[address] abd Diverticulosis 10/08/2023 ESRD on hemodialysis ([facility]) ([facility]) 10/26/2019 Hemodialysis patient ([facility]) ([facility]) HTN (hypertension) 12/01/2022 Hypertension IgA nephropathy 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 10/26/2019 Missed vaccination due to patient refusal 10/08/2023 Has a number of non-scientific based beliefs which interfere with his understanding and acceptance of the medical benefit of vaccination. Nonrheumatic aortic valve stenosis 10/08/2023 Paroxysmal A-fib ([facility]) ([facility]) 08/18/2023 Tobacco abuse 10/08/2023 Hospitalist Progress Note - [facility] [employer] ([facility]) 03/05/2025 7:13 AM [phone]: Please page me for patient care issues. [phone]: Please page [facility] Hospitalist - [facility] for any issues. Subjective and Objective: Admit [...] was bright red and it stopped just SKETCHER when in transport. Adult diet Regular Dietary [...] - (0 mL/kg) Weight: 60.8 kg @IODETAILS@ @[id number]@ Medications: Continuous Meds[1] Scheduled Meds[2] Recent Labs [...] 99 77 68* No results for input(s): "AST", "ALT", "BILITOT", "ALKPHOS" in the last 72 hours. No lab exists for component: ALB No results found for: "TRIG", "HDL", "LDLCALC", "CHOL" No results found for: "PHART", "PO2ART", "[id number]" Recent Labs 03/04/25 0156 03/04/25 0946 03/05/25 0343 INR 1.5* 1.6* 1.8* No results for input(s): "CKTOTAL", "CKMB", "TROPONINI" in the last 72 hours. No results for input(s): "DDIMER" in the last 72 hours. No results found for: "HGBA1C" No results found for: "TSH" Urine Culture: No results found for this or any previous visit. Objective: Vitals: BP 140/83 (BP Location: Right arm, Patient Position: Lying) Pulse 86 Temp 36.2 C (97.1 F) (Temporal) Resp 20 Ht 5' 10" (1.778 m) Wt 134 lb (60.8 kg) [...] medically stable for discharge - [facility] - Pending the following - dispo, [...] DO Division of Hospitalist Medicine Inpatient Medical Services/[facility] [1] heparin, 5-30 Units/kg/hr, Last Rate: 21 [...] (Temporal) Resp 18 Ht 1.778 m (5' 10") Wt 60.8 kg (134 lb) SpO2 100% BMI 19.23 kg/m BLOOD PRESSURE RANGE: Systolic (24hrs), Av , Min:127 , Max:158 ; Diastolic (24hrs), Av, Min:72, Max:91 24HR INTAKE/OUTPUT: Intake/Output Summary (Last 24 hours) at 03/04/2025 172 Last data filed at 03/04/2025 0940 Gross [...] original note were not included. PHYSICAL THERAPY [facility] Name/MRN: Jair Snyder ([id number]) Date: 03/04/2025 Attempted to initiate PT this date; upon arrival, patient states he is needs to have a bowel movement and does not want to do PT. Offered to ambulate patient to bathroom or use of a bedpan however patient declines. Will continue to follow. Emily Stanley PTA Cosigned by Darryn Tay PT at 03/04/2025 3:38 PM EDT Hospitalist Progress Note - [facility] [employer] ([facility]) 03/04/2025 9:11 AM [phone]: Please page me for patient care issues. [phone]: Please page [facility] Hospitalist - [facility] for any issues. Subjective and Objective: Admit [...] was bright red and it stopped just SKETCHER when in transport. Adult diet Regular Dietary [...] - (0 mL/kg) Weight: 60.8 kg @IODETAILS@ @[id number]@ Medications: Continuous Meds[1] Scheduled Meds[2] Recent Labs [...] 93 71* 99 No results for input(s): "AST", "ALT", "BILITOT", "ALKPHOS" in the last 72 hours. No lab exists for component: ALB No results found for: "TRIG", "HDL", "LDLCALC", "CHOL" No results found for: "PHART", "PO2ART", "[id number]" Recent Labs 03/02/25 0004 03/03/25 0212 03/04/25 0156 INR 1.4* 1.6* 1.5* No results for input(s): "CKTOTAL", "CKMB", "TROPONINI" in the last 72 hours. No results for input(s): "DDIMER" in the last 72 hours. No results found for: "HGBA1C" No results found for: "TSH" Urine Culture: No results found for this or any previous visit. Objective: Vitals: BP 146/88 (BP Location: Right arm, Patient Position: Lying) Pulse 88 Temp 36.6 C (97.9 F) (Temporal) Resp 18 Ht 5' 10" (1.778 m) Wt 134 lb (60.8 kg) [...] - 03/04 - 05/05 - Location - [facility] ([facility]) - Pending the following - [...] DO Division of Hospitalist Medicine Inpatient Medical Services/[facility] [1] heparin, 5-30 Units/kg/hr, Last Rate: 20 Units/kg/hr (03/04/25 0737) [2] B complex-vitamin C-folic acid, 1 capsule, [...] F) Resp 18 Ht 1.778 m (5' 10") Wt 60.8 kg (134 lb) SpO2 100% [...] electrolyte and CBC daily Maryam Marcelo DO [facility] Anticoagulation Management Service ([facility]) Inpatient Warfarin Consult HPI: uJn Snyder is a 59 y.o. male admitted on 02/20/2025 for Hemoptysis [R04.2]. Medical History[1] Patient is on warfarin for mechanical AVR and has a goal INR 2.0 - 3.0. Patient was referred to [facility], but so far has been managed at facilities, most recently [facility]. Pt's home dose of warfarin is 1.5mg [...] 3mg 6/3 1.3 2mg 6/2 1.3 1.5mg 6/1 1.3 1 mg 02/24 1.3 1 mg [...] PharmD [facility] Consult Service is available daily [phone] via [employer] Secure Chat. [1] Past Medical History: Diagnosis Date Acute renal failure (ARF) ([facility]) 10/19/2019 Anemia 12/30/2021 Calcification of abdominal aorta ([facility]) 10/08/202309/[address] abd Diverticulosis 10/08/2023 ESRD on hemodialysis ([facility]) ([facility]) 10/26/2019 Hemodialysis patient ([facility]) ([facility]) HTN (hypertension) 12/01/2022 Hypertension IgA nephropathy 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 10/26/2019 Missed vaccination due to patient refusal 10/08/2023 Has a number of non-scientific based beliefs which interfere with his understanding and acceptance of the medical benefit of vaccination. Nonrheumatic aortic valve stenosis 10/08/2023 Paroxysmal A-fib ([facility]) ([facility]) 08/18/2023 Tobacco abuse 10/08/2023 Hospitalist Progress Note - [facility] [employer] ([facility]) 03/03/2025 8:37 AM [phone]: Please page me for patient care issues. [phone]: Please page [facility] Hospitalist - [facility] for any issues. Subjective and Objective: Admit [...] was bright red and it stopped just SKETCHER when in transport. Adult diet Regular Dietary [...] (0.4 mL/kg) [Drains:25] Weight: 60.8 kg @IODETAILS@ @[id number]@ Medications: Continuous Meds[1] Scheduled Meds[2] Recent Labs [...] 87 107* 93 No results for input(s): "AST", "ALT", "BILITOT", "ALKPHOS" in the last 72 hours. No lab exists for component: ALB No results found for: "TRIG", "HDL", "LDLCALC", "CHOL" No results found for: "PHART", "PO2ART", "SMY2LGR" Recent Labs 03/01/25 0003 03/02/25 0004 03/03/25 021 INR 1.4* 1.4* 1.6* No results for input(s): "CKTOTAL", "CKMB", "TROPONINI" in the last 72 hours. No results for input(s): "DDIMER" in the last 72 hours. No results found for: "HGBA1C" No results found for: "TSH" Urine Culture: No results found for this or any previous visit. Objective: Vitals: BP 140/80 (BP Location: Right arm, Patient Position: Lying) Pulse 86 Temp 36.4 C (97.5 F) (Temporal) Resp 20 Ht 5' 10" (1.778 m) Wt 134 lb (60.8 kg) [...] - Date - 03/04 - [facility] - Pending the following - INR [...] DO Division of Hospitalist Medicine Inpatient Medical Services/[facility] [1] heparin, 5-30 Units/kg/hr, Last Rate: 20 [...] (Temporal) Resp 16 Ht 1.778 m (5' 10") Wt 60.8 kg (134 lb) SpO2 100% [...] any questions or concerns Bree Molina APRN SALVAGER A-G LAST CODE STRIPER [facility] [phone] Pt seen and examined independently by me. I reviewed with CERTIFIED FLEX ENDOSCOPE REPROCESSOR-SALVAGER the medical history and the findings on physical examination. I discussed the patient s diagnosis and concur with the treatment plan as documented in his note. Please call [phone] or message me through [employer] with any questions or concerns. Hospitalist Progress Note - [facility] [employer] ([facility]) 03/02/2025 8:20 AM [phone]: Please page me for patient care issues. [phone]: Please page [facility] Hospitalist - [facility] for any issues. Subjective and Objective: Admit [...] was bright red and it stopped just SKETCHER when in transport. Adult diet Regular Dietary [...] (0.7 mL/kg) [Drains:40] Weight: 60.8 kg @IODETAILS@ @[id number]@ Medications: Continuous Meds[1] Scheduled Meds[2] Recent Labs [...] 94 87 107* No results for input(s): "AST", "ALT", "BILITOT", "ALKPHOS" in the last 72 hours. No lab exists for component: ALB No results found for: "TRIG", "HDL", "LDLCALC", "CHOL" No results found for: "PHART", "PO2ART", "FQU9OFY" Recent Labs 02/28/25 0004 03/01/25 0003 03/02/25 0004 INR 1.3* 1.4* 1.4* No results for input(s): "CKTOTAL", "CKMB", "TROPONINI" in the last 72 hours. No results for input(s): "DDIMER" in the last 72 hours. No results found for: "HGBA1C" No results found for: "TSH" Urine Culture: No results found for this or any previous visit. Objective: Vitals: BP 154/86 (BP Location: Right arm, Patient Position: Lying) Pulse 89 Temp 36.5 C (97.7 F) (Temporal) Resp 16 Ht 5' 10" (1.778 m) Wt 134 lb (60.8 kg) [...] - Date - 03/03 - Location - [facility] ([facility]) - Pending the following - [...] DO Division of Hospitalist Medicine Inpatient Medical Services/[facility] [1] heparin, 5-30 Units/kg/hr, Last Rate: 19 Units/kg/hr (03/02/25 0813) [2] B complex-vitamin C-folic acid, 1 capsule, Oral, Daily metoprolol tartrate, 25 mg, Oral, BID pantoprazole, 40 mg, Oral, BID AC piperacillin-tazobactam, 2,250 mg, IntraVENous, q6h QUEtiapine, 25 mg, Oral, Nightly sevelamer carbonate, 800 mg, Oral, TID WC warfarin, 5 mg, Oral, Once [facility] Anticoagulation Management Service ([facility]) Inpatient Warfarin Consult HPI: Jun Snyder is a 59 y.o. male admitted on 02/20/2025 for Hemoptysis [R04.2]. Medical History[1] Patient is on warfarin for mechanical AVR and has a goal INR 2.0 - 3.0. Patient was referred to [facility], but so far has been managed at facilities, most recently [facility]. Pt's home dose of warfarin is 1.5mg [...] over when discharged from facility. Fatuma Odonnell RP [facility] Consult Service is available daily [phone] via [employer] Secure Chat. [1] Past Medical History: Diagnosis Date Acute renal failure (ARF) ([facility]) 10/19/2019 Anemia 12/30/2021 Calcification of abdominal aorta ([facility]) 10/08/202309/[address] abd Diverticulosis 10/08/2023 ESRD on hemodialysis ([facility]) ([facility]) 10/26/2019 Hemodialysis patient ([facility]) ([facility]) HTN (hypertension) 12/01/2022 Hypertension IgA nephropathy 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 10/26/2019 Missed vaccination due to patient refusal 10/08/2023 Has a number of non-scientific based beliefs which interfere with his understanding and acceptance of the medical benefit of vaccination. Nonrheumatic aortic valve stenosis 10/08/2023 Paroxysmal A-fib ([facility]) ([facility]) 08/18/2023 Tobacco abuse 10/08/2023 Images from the original note were not included. PHYSICAL THERAPY [facility] Treatment Note Name/MRN: Jair Snyder ([id number]) Date of : 1965 Age: 59 y.o. Room/Bed: W3-334/W3-334 A Discharge Recommendation: Custodial Facility Equipment Needed: No Assessment Good distance, [...] Minutes: (gt-fa) Merlene León PTA Cosigned by Atnhony Black PT at 03/01/2025 4:34 PM EDT Associated attestation - Anthony Black, PT - 03/01/2025 4:34 PM EDT Did not have opportunity today to speak to SKETCHER re: recommendation. Mobility appears to be consistent with homegoing, but know that medical conditions and other factors clearly could influence recommendations. Images from the original note were not included. OCCUPATIONAL THERAPY [facility] Treatment Note Name/MRN: Jair Snyder ([id number]) Date of : 1965 Age: 59 y.o. Room/Bed: W3-334/W3-334 A Discharge Recommendation: Custodial Facility Other: DME TBD at next level [...] F) Resp 16 Ht 1.778 m (5' 10") Wt 60.8 kg (134 lb) SpO2 99% [...] any questions or concerns Bree Molina APRN SALVAGER A-G LAST CODE STRIPER [facility] [phone] Pt seen and examined independently by me. I reviewed with Jun Maki, the medical history and the findings on physical examination. I discussed the patient s diagnosis and concur with the treatment plan as documented in his note. Please call [phone] or message me through [employer] with any questions or concerns. Hospitalist Progress Note - [facility] [employer] ([facility] 03/01/2025 9:51 AM [phone]: Please page me for patient care issues. [phone]: Please page [facility] Hospitalist - [facility] for any issues. Subjective and Objective: Admit [...] was bright red and it stopped just SKETCHER when in transport. Adult diet Regular Dietary Orders (From admission, onward) Start Ordered 02/27/25 1254 Supplement:Breakfast, Dinner; Nepro w/CARB Steady Until discontinued Question Answer Comment Frequency Breakfast Frequency Dinner Select supplement: Nepro w/CARB Steady 02/27/25 1254 02/21/25 1021 Adult diet Regular Diet effective now Question: Diet type Answer: Regular 02/21/25 1021 No intake/output data recorded. @IODETAILS@ @[email or web address]@ Medications: Continuous Meds[1] Scheduled Meds[2] Recent Labs 02/27/25 0010 02/28/25 0004 03/01/25 0003 WBC 7.9 8.0 7.5 HGB 8.6* 8.2* 8.0* PLT 302 324 306 Recent Labs 02/28/25 0004 03/01/25 0003 NA 138 138 K 5.0 5.8* CL 100 102 CO2 27 23 BUN 19 28* CREATININE 3.06* 3.73* GLUCOSE 94 87 No results for input(s): "AST", "ALT", "BILITOT", "ALKPHOS" in the last 72 hours. No lab exists for component: ALB No results found for: "TRIG", "HDL", "LDLCALC", "CHOL" No results found for: "PHART", "PO2ART", "MSX2BAM" Recent Labs 02/27/25 0010 02/28/25 0004 03/01/25 0003 INR 1.3* 1.3* 1.4* No results for input(s): "CKTOTAL", "CKMB", "TROPONINI" in the last 72 hours. No results for input(s): "DDIMER" in the last 72 hours. No results found for: "HGBA1C" No results found for: "TSH" Urine Culture: No results found for this or any previous visit. Objective: Vitals: BP 150/85 Pulse 87 Temp 37.6 C (99.7 F) Resp 16 Ht 5' 10" (1.778 m) Wt 134 lb (60.8 kg) [...] 03/01 - 03/02 - Location - [facility] ([facility]) - Pending the following - [...] Extended Emergency Contact Information Primary Emergency Contact: Lillian,Jared Mobile Relation: Child Secondary Emergency Contact: Toma Mcneil Mobile Relation: Partner Anthony Hurtado DO Division of Hospitalist Medicine Inpatient Medical Services/[facility] [1] heparin, 5-30 Units/kg/hr, Last Rate: 18 Units/kg/hr (03/01/25 0729) [2] B complex-vitamin C-folic acid, 1 capsule, Oral, Daily metoprolol tartrate, 25 mg, Oral, BID pantoprazole, 40 mg, Oral, BID AC piperacillin-tazobactam, 2,250 mg, IntraVENous, q6h QUEtiapine, 25 mg, Oral, Nightly sevelamer carbonate, 800 mg, Oral, TID WC warfarin, 4 mg, Oral, Once Images from the original note were not included. PHYSICAL THERAPY [facility] Name/MRN: Jair Snyder ([id number]) Date: 03/01/2025 Leaving for dialysis. Return later time/date for PT. Merlene León, SKETCHER Cosigned by Anthony Black, PT at 03/01/2025 8:42 AM EDT [facility] Anticoagulation Management Service ([facility]) Inpatient Warfarin Consult HPI: Jun Snyder is a 59 y.o. male admitted on 02/20/2025 for Hemoptysis [R04.2]. Medical History[1] Patient is on warfarin for mechanical AVR and has a goal INR 2.0 - 3.0. Patient was referred to [facility], but so far has been managed at facilities, most recently [facility]. Pt's home dose of warfarin is 1.5mg [...] RPh [facility] Consult Service is available daily [phone] via [employer] Secure Chat. [1] Past Medical History: Diagnosis Date Acute renal failure (ARF) ([facility]) 10/19/2019 Anemia 12/30/2021 Calcification of abdominal aorta ([facility]) 10/08/202309/[address] abd Diverticulosis 10/08/2023 ESRD on hemodialysis ([facility]) ([facility]) 10/26/2019 Hemodialysis patient ([facility]) ([facility]) HTN (hypertension) 12/01/2022 Hypertension IgA nephropathy 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 10/26/2019 Missed vaccination due to patient refusal 10/08/2023 Has a number of non-scientific based beliefs which interfere with his understanding and acceptance of the medical benefit of vaccination. Nonrheumatic aortic valve stenosis 10/08/2023 Paroxysmal A-fib ([facility]) ([facility]) 08/18/2023 Tobacco abuse 10/08/2023 Nephrology Progress Note Following for ESRD , pt seen in room States had some SOB but better Had HD yesterday Current Inpatient Medications: Reviewed on NOV. Vitals: BP 139/83 (BP Location: Right arm, Patient Position: Lying) Pulse 86 Temp 36.4 C (97.6 F) (Temporal) Resp 12 Ht 1.778 m (5' 10") Wt 60.8 kg (134 lb) SpO2 97% [...] any questions or concerns Bree Molina APRN SALVAGER A-G LAST CODE STRIPER [facility] [phone] Pt seen and examined independently by me. I reviewed with DENIA-SAMIA the medical history and the findings on physical examination. I discussed the patient s diagnosis and concur with the treatment plan as documented in his note. Please call [phone] or message me through [employer] with any questions or concerns. Hospitalist Progress Note - [facility] - [employer] [facility] [employer] ([facility] 02/28/2025 8:23 AM [phone]: Please page me for patient care issues. [phone]: Please page [facility] Hospitalist - [facility] for any issues. Subjective and Objective: Admit [...] was bright red and it stopped just SKETCHER when in transport. Adult diet Regular Dietary [...] [Urine:450 (0.2 mL/kg/hr)] Weight: 60.8 kg @IODETAILS@ @[id number]@ Medications: Continuous Meds[1] Scheduled Meds[2] Recent Labs 02/27/25 0010 02/28/25 0004 WBC 7.9 8.0 HGB 8.6* 8.2* PLT 302 324 Recent Labs 02/28/25 0004 NA 138 K 5.0 CL 100 CO2 27 BUN 19 CREATININE 3.06* GLUCOSE 94 No results for input(s): "AST", "ALT", "BILITOT", "ALKPHOS" in the last 72 hours. No lab exists for component: ALB No results found for: "TRIG", "HDL", "LDLCALC", "CHOL" No results found for: "PHART", "PO2ART", "[id number]" Recent Labs 02/25/25 2345 02/27/25 0010 02/28/25 0004 INR 1.3* 1.3* 1.3* No results for input(s): "CKTOTAL", "CKMB", "TROPONINI" in the last 72 hours. No results for input(s): "DDIMER" in the last 72 hours. No results found for: "HGBA1C" No results found for: "TSH" Urine Culture: No results found for this or any previous visit. Objective: Vitals: BP 132/80 (BP Location: Right arm, Patient Position: Lying) Pulse 91 Temp 36.3 C (97.4 F) (Temporal) Resp 18 Ht 5' 10" (1.778 m) Wt 134 lb (60.8 kg) [...] - 03/01 - 03/02 - Location - [facility] ([facility]) - Pending the following - [...] DO Division of Hospitalist Medicine Inpatient Medical Services/[facility] [1] heparin, 5-30 Units/kg/hr, Last Rate: 18 Units/kg/hr (06/04/25 0714) [2] B complex-vitamin C-folic acid, 1 capsule, Oral, Daily metoprolol tartrate, 25 mg, Oral, BID pantoprazole, 40 mg, Oral, qAM AC piperacillin-tazobactam, 4,500 mg, IntraVENous, q8h QUEtiapine, 25 mg, Oral, Nightly sevelamer carbonate, 800 mg, Oral, TID WC warfarin, 3 mg, Oral, Once Images from the original note were not included. [facility] Wound Care/NPWT Progress Note Jun Snyder AGE: [...] (Temporal) Resp 12 Ht 1.778 m (5' 10") Wt 60.8 kg (134 lb) SpO2 97% [...] premedicated for pain with pain medication, per direct care staffer, prior to wound VAC dressing change. Wet [...] (H) 02/28/2025 Prealbumin: No results found for: "PREALBUMIN" Albumin:No components found for: LABALBU Sed Rate:No results found for: SEDRATE Micro: No components found for: BC Assessment/Plan: Nursing staff to perform dressing change: Left toes 1-5: Arterial Ulcer (Unknown) -cleanse with NS, apply Betadine and allow to dry, leave FELT COVERER daily and PRN Left plantar heel - unstageable pressure injury (POA): -cleanse with NS, apply Betadine and allow to dry, leave TISHA daily and PRN Right wrist Abrasion: -cleanse with antibacterial soap/water, leave FELT COVERER daily Sacral Stage 4 pressure injury (POA): [...] to follow Recommend to follow up at [facility] Outpatient wound care center after hospital discharge. Any questions or concerns please secure chat "ACH wound/ostomy". Thank you for the consult! I personally [...] History: Diagnosis Date Acute renal failure (ARF) ([facility]) 10/19/2019 Anemia 12/30/2021 Calcification of abdominal aorta ([facility]) 10/08/202309/[address] abd Diverticulosis 10/08/2023 ESRD on hemodialysis ([facility]) ([facility]) 10/26/2019 Hemodialysis patient ([facility]) ([facility]) HTN (hypertension) 12/01/2022 Hypertension IgA nephropathy 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 10/26/2019 Missed vaccination due to patient refusal 10/08/2023 Has a number of non-scientific based beliefs which interfere with his understanding and acceptance of the medical benefit of vaccination. Nonrheumatic aortic valve stenosis 10/08/2023 Paroxysmal A-fib ([facility]) ([facility]) 08/18/2023 Tobacco abuse 10/08/2023 [2] Past Surgical History: Procedure Laterality Date APPENDECTOMY CARDIAC CATHETERIZATION N/A 10/09/2024 Performed by Bob Watson MD at [facility] Cardiac Cath/EP Lab CARDIAC CATHETERIZATION Bilateral 11/01/2024 Performed by Bob Watson MD at [facility] Cardiac Cath/EP Lab CARDIAC CATHETERIZATION N/A 11/01/2024 Performed by Bob Watson MD at [facility] Cardiac Cath/EP Lab COLONOSCOPY N/A 01/24/2025 Performed by Chadd Davis MD at [facility] ENDOSCOPY FISTULAGRAM (HISTORICAL) Left 09/15/2021 LEFT UPPER ARM HX AV FISTULA CREATION IR EMBOLIZATION 10/14/2024 IR EMBOLIZATION 10/14/2024 [facility] SPECIAL PROCEDURES IR FISTULAGRAM 08/07/2022 IR FISTULAGRAM [...] Gill DO at 03/01/2025 2:50 PM EDT [facility] Anticoagulation Management Service ([facility]) Inpatient Warfarin Consult HPI: Jun Snydre is a 59 y.o. male admitted on 02/20/2025 for Hemoptysis [R04.2]. Medical History[1] Patient is on warfarin for mechanical AVR and has a goal INR 2.0 - 3.0. Patient was referred to [facility], but so far has been managed at facilities, most recently [facility]. Pt's home dose of warfarin is 1.5mg [...] when discharged from facility. Fatuma Odonnell [facility] Consult Service is available daily [phone] via [employer] Secure Chat. [1] Past Medical History: Diagnosis Date Acute renal failure (ARF) ([facility]) 10/19/2019 Anemia 12/30/2021 Calcification of abdominal aorta ([facility]) 10/08/202309/[address] abd Diverticulosis 10/08/2023 ESRD on hemodialysis ([facility]) ([facility]) 10/26/2019 Hemodialysis patient ([facility]) ([facility]) HTN (hypertension) 12/01/2022 Hypertension IgA nephropathy 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 10/26/2019 Missed vaccination due to patient refusal 10/08/2023 Has a number of non-scientific based beliefs which interfere with his understanding and acceptance of the medical benefit of vaccination. Nonrheumatic aortic valve stenosis 10/08/2023 Paroxysmal A-fib ([facility]) ([facility]) 08/18/2023 Tobacco abuse 10/08/2023 Nephrology Progress Note Following for Seen on HD did well Current Inpatient Medications: Reviewed on NOV. Vitals: BP 147/81 (BP Location: Right arm, Patient Position: Sitting) Pulse 83 Temp 36.4 C (97.6 F) (Temporal) Resp 15 Ht 1.778 m (5' 10") Wt 60.8 kg (134 lb) SpO2 96% [...] PLT 280 302 No results for input(s): "NA", "K", "CL", "CO2", "GLUCOSE", "CALCIUM", "PHOS", "MG", "BUN", "CREATININE", "LABGLOM" in the last 72 hours. No lab exists for component: "CA", "GFRAA" Assessment and Plan: 59 y.o. male with [...] from the original note were not included. [facility] - Infectious Diseases Attending [...] sites clean Labs: No results for input(s): "NA", "K", "CL", "CO2", "BUN", "CREATININE", "GLUCOSE", "CALCIUM", "PROT", "BILITOT", "ALKPHOS", "AST", "ALT", "PROCAL" in the last 72 hours. No lab [...] Total Energy Requirements (kcals/day): 30-35 kcal/kg = 2393-8374 kcal Weight Used for Protein Requirements: Current [...] Ordered Anthropometric Measures: Height: 177.8 cm (5' 10") Current Body Weight: 60.8 kg (134 lb) (02/23) Weight Source: Bed Scale Usual Body Weight: 93.4 kg (206 lb) (08/28/24) % Weight Change (Calculated): -34.6 [place] Body Weight (lbs) (Calculated): 166 lbs [place] Body Weight (Kg) (Calculated): 75 kg % [place] Body Weight (Calculated): 81.1 % BMI (kg/m2) [...] to determine Glenys Juares RD, LD Contact: [phone] Images from the original note were not included. PHYSICAL THERAPY [facility] Name/MRN: Jair Snyder ([id number]) Date: 02/27/2025 Request for "see today" note, however, pt currently in dialysis. Will plan to return this PM. PT returned at 1330-pt wanted to eat his food while it was warm. PT agreed to return after seeing next patient. PT returned approx 1430. Pt answered firmly "I'm not getting up today." Pt states he wants to get up and wants to have a plan for tomorrow about when PT is coming. Told pt would "schedule" it in AM. Anthony Black PT Hospitalist Progress Note - [facility] - [facility] [employer] ([facility] 02/27/2025 9:03 AM [phone]: Please page me for patient care issues. [phone]: Please page [facility] Hospitalist - [place] for any issues. Subjective and Objective: Admit [...] was bright red and it stopped just SKETCHER when in transport. Adult diet Regular Dietary Orders (From admission, onward) Start Ordered 02/21/25 1021 Adult diet Regular Diet effective now Question: Diet type Answer: Regular 02/21/25 1021 I/O last 3 completed shifts: In: 750 (12.3 mL/kg) [P.O.:750] Out: 450 (7.4 mL/kg) [Urine:450 (0.2 mL/kg/hr)] Weight: 60.8 kg @IODETAILS@ @[id number]@ Medications: Continuous Meds[1] Scheduled Meds[2] Recent Labs 02/25/25 0028 02/27/25 0010 WBC 7.5 7.9 HGB 7.6* 8.6* PLT 280 302 No results for input(s): "NA", "K", "CL", "CO2", "BUN", "CREATININE", "GLUCOSE" in the last 72 hours. No results for input(s): "AST", "ALT", "BILITOT", "ALKPHOS" in the last 72 hours. No lab exists for component: ALB No results found for: "TRIG", "HDL", "LDLCALC", "CHOL" No results found for: "PHART", "PO2ART", "[id number]" Recent Labs 02/25/25 0028 02/25/25 2345 02/27/25 0010 INR 1.3* 1.3* 1.3* No results for input(s): "CKTOTAL", "CKMB", "TROPONINI" in the last 72 hours. No results for input(s): "DDIMER" in the last 72 hours. No results found for: "HGBA1C" No results found for: "TSH" Urine Culture: No results found for this or any previous visit. Objective: Vitals: BP 149/89 Pulse 82 Temp 36.8 C (98.3 F) Resp 18 Ht 5' 10" (1.778 m) Wt 134 lb (60.8 kg) [...] DO Division of Hospitalist Medicine Inpatient Medical Services/[facility] [1] heparin, 5-30 Units/kg/hr, Last Rate: 18 Units/kg/hr (02/27/25 0722) [2] B complex-vitamin C-folic acid, 1 capsule, Oral, Daily metoprolol tartrate, 25 mg, Oral, BID pantoprazole, 40 mg, Oral, qAM AC piperacillin-tazobactam, 4,500 mg, IntraVENous, q8h QUEtiapine, 25 mg, Oral, Nightly sevelamer carbonate, 800 mg, Oral, TID WC warfarin, 2 mg, Oral, Once [facility] Anticoagulation Management Service ([facility]) Inpatient Warfarin Consult HPI: Jun Snyder is a 59 y.o. male admitted on 02/20/2025 for Hemoptysis [R04.2]. Medical History[1] Patient is on warfarin for mechanical AVR and has a goal INR 2.0 - 3.0. Patient was referred to [facility], but so far has been managed at facilities, most recently [facility]. Pt's home dose of warfarin is 1.5mg [...] RPh [facility] Consult Service is available daily [phone] via [employer] Secure Chat. [1] Past Medical History: Diagnosis Date Acute renal failure (ARF) ([facility]) 10/19/2019 Anemia 12/30/2021 Calcification of abdominal aorta ([facility]) 10/08/202309/[address] abd Diverticulosis 10/08/2023 ESRD on hemodialysis ([facility]) ([facility]) 10/26/2019 Hemodialysis patient ([facility]) ([facility]) HTN (hypertension) 12/01/2022 Hypertension IgA nephropathy 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 10/26/2019 Missed vaccination due to patient refusal 10/08/2023 Has a number of non-scientific based beliefs which interfere with his understanding and acceptance of the medical benefit of vaccination. Nonrheumatic aortic valve stenosis 10/08/2023 Paroxysmal A-fib ([facility]) ([facility]) 08/18/2023 Tobacco abuse 10/08/2023 Images from the original note were not included. OCCUPATIONAL THERAPY [facility] Initial Evaluation Name/MRN: Jair Snyder ([id number]) Evaluation Date: 02/26/2025 Date of : 1965 Admission Date: 02/20/2025 5:41 PM Age: 59 y.o. Room/Bed: W3-334/W3-334 A Discharge Recommendation: Custodial Facility Assessment IMPRESSION: Pt would benefit from [...] Problem List Diagnosis Date Noted Severe malnutrition ([facility]) ([facility]) 02/21/2025 Hemoptysis 02/20/2025 Complication of tracheostomy ([facility]) (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) [J96.01] 01/08/2025 Tracheostomy care ([facility]) [Z43.0] 01/08/2025 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[facility]) 01/08/2025 Sacral osteomyelitis ([facility]) ([facility]) 01/03/2025 Pneumonia of both lungs due to methicillin susceptible Staphylococcus aureus (MSSA) ([facility]) 01/01/2025 Leukocytosis 12/30/2024 Decubitus ulcer of sacral region, unstageable ([facility]) 12/30/2024 Peritonitis due to fungus ([facility]) 11/30/2024 History of abdominal surgery 11/30/2024 Leg DVT (deep venous thromboembolism), acute, left ([facility]) 11/30/2024 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, 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 of skin (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) 11/30/2024 Pleural effusion 11/28/2024 Gastric ulceration 2024 Atrial flutter, unspecified type ([facility]) 10/03/2024 RSV (acute bronchiolitis due to respiratory syncytial virus) 10/03/2024 Diverticulosis 10/08/2023 Nonrheumatic aortic valve stenosis 10/08/2023 Calcification of abdominal aorta ([facility]) 10/08/2023 Missed vaccination due to patient refusal 10/08/2023 Tobacco abuse 10/08/2023 Alcohol use disorder in remission 10/08/2023 Paroxysmal A-fib ([facility]) ([facility]) 08/18/2023 HTN (hypertension) 12/01/2022 ESRD on hemodialysis ([facility]) ([facility]) 10/26/2019 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 10/26/2019 BRBPR (bright red blood per rectum) 01/19/2025 Aortic stenosis 10/03/2024 Upper GI bleed 10/03/2024 S/P AVR 10/03/2024 Acute hypoxic respiratory failure ([facility]) 10/03/2024 Acute encephalopathy 10/03/2024 Pneumoperitoneum 10/03/2024 [...] of Care supervision is transferred to a [facility] Therapy Services Occupational Therapist. Goals and/or treatment plan was established in collaboration with patient/family/other representatives. Ro Sales MS, OTR/L [1] Past Medical History: Diagnosis Date Acute renal failure (ARF) ([facility]) 10/19/2019 Anemia 12/30/2021 Calcification of abdominal aorta ([facility]) 10/08/202309/[address] abd Diverticulosis 10/08/2023 ESRD on hemodialysis ([facility]) ([facility]) 10/26/2019 Hemodialysis patient ([facility]) ([facility]) HTN (hypertension) 12/01/2022 Hypertension IgA nephropathy 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 10/26/2019 Missed vaccination due to patient refusal 10/08/2023 Has a number of non-scientific based beliefs which interfere with his understanding and acceptance of the medical benefit of vaccination. Nonrheumatic aortic valve stenosis 10/08/2023 Paroxysmal A-fib ([facility]) ([facility]) 08/18/2023 Tobacco abuse 10/08/2023 [2] Past Surgical History: Procedure Laterality Date APPENDECTOMY CARDIAC CATHETERIZATION N/A 10/09/2024 Performed by Bob Watson MD at [facility] Cardiac Cath/EP Lab CARDIAC CATHETERIZATION Bilateral 11/01/2024 Performed by Bob Watson MD at [facility] Cardiac Cath/EP Lab CARDIAC CATHETERIZATION N/A 11/01/2024 Performed by Bob Watson MD at [facility] Cardiac Cath/EP Lab COLONOSCOPY N/A 01/24/2025 Performed by Chadd Davis MD at [facility] ENDOSCOPY FISTULAGRAM (HISTORICAL) Left 09/15/2021 LEFT UPPER ARM HX AV FISTULA CREATION IR EMBOLIZATION 10/14/2024 IR EMBOLIZATION 10/14/2024 [facility] SPECIAL PROCEDURES IR FISTULAGRAM 08/07/2022 IR FISTULAGRAM 08/07/2022 [facility] IR IMAGING TONSILLECTOMY (HISTORICAL) Hospitalist Progress [...] bilateral pleural effusions. 5. Cholelithiasis, and diminutive [place] kidneys. Seen by pulm service Started on IV abx Started on heparin gtt as well Interval History: pt feels ok Some dizziness at times No more bleeding issues 02/23 Pt awake Reports his PEG is uncomfortable-- wants removed if able No CP 02/24 Pt awake Some cough at times Sob better 02/25 Pt awake No sob today No CP / Pt awake Pain controlled No CP Adult diet Regular @IODETAILS@ @[id number]@ Medications: Continuous Meds[1] Scheduled Meds[2] Recent Labs 02/25/25 0028 WBC 7.5 HGB 7.6* PLT 280 No results for input(s): "NA", "K", "CL", "CO2", "BUN", "CREATININE", "GLUCOSE" in the last 72 hours. No results for input(s): "AST", "ALT", "BILITOT", "ALKPHOS" in the last 72 hours. No lab exists for component: ALB No results found for: "TRIG", "HDL", "LDLCALC", "CHOL" Recent Labs 02/24/25 0010 02/25/25 0028 02/25/25 2345 INR 1.3* 1.3* 1.3* No results for input(s): "CKTOTAL", "CKMB", "TROPONINI" in the last 72 hours. Objective: Vitals: BP 139/82 (BP Location: Right arm, Patient Position: Sitting) Pulse 81 Temp 36.8 C (98.2 F) (Temporal) Resp 14 Ht 5' 10" (1.778 m) Wt 134 lb (60.8 kg) [...] Directive: Full Code Ramón Romano MD, [facility] Hospitalist [1] heparin, 5-30 Units/kg/hr, Last [...] (Temporal) Resp 14 Ht 1.778 m (5' 10") Wt 60.8 kg (134 lb) SpO2 94% [...] 93.1 PLT 280 No results for input(s): "NA", "K", "CL", "CO2", "GLUCOSE", "CALCIUM", "PHOS", "MG", "BUN", "CREATININE", "LABGLOM" in the last 72 hours. No lab exists for component: "CA", "GFRAA" Assessment and Plan: 59 y.o. male with [...] any questions or concerns Bree Molina APRN SALVAGER A-G LAST CODE STRIPER [facility] [phone] Pt seen and examined independently by me. I reviewed with, CERTIFIED FLEX ENDOSCOPE REPROCESSOR-SALVAGER the medical history and the findings on physical examination. I discussed the patient s diagnosis and concur with the treatment plan as documented in his note. Please call [phone] or message me through [employer] with any questions or concerns. PULMONOLOGY CONSULT [...] (97.4 F) (Temporal) Resp 16 Ht 5' 10" (1.778 m) Wt 134 lb (60.8 kg) [...] Intake/Output Summary (Last 24 hours) at 02/26/2025 0918 Last data filed at 02/26/2025 0617 Gross [...] original note were not included. [facility] Wound Care/NPWT Progress Note Jun Snyder AGE: [...] (Temporal) Resp 14 Ht 1.778 m (5' 10") Wt 60.8 kg (134 lb) SpO2 94% [...] premedicated for pain with pain medication, per direct care staffer, prior to wound VAC dressing change. Wet [...] 280 02/25/2025 BMP: No results found for: "NA", "K", "CL", "CO2", "PHOS", "BUN", CREATININE PT/INR: Lab Results Component Value Date PROTIME 13.5 (H) 02/25/2025 INR 1.3 (H) 02/25/2025 Prealbumin: No results found for: "PREALBUMIN" Albumin:No components found for: LABALBU Sed Rate:No results found for: SEDRATE Micro: No components found for: BC Assessment/Plan: Nursing staff to perform dressing change: Left toes 1-5: Arterial Ulcer (Unknown) -cleanse with NS, apply Betadine and allow to dry, leave FELT COVERER daily and PRN Left plantar heel - [...] to follow Recommend to follow up at [facility] Outpatient wound care center after hospital discharge. Any questions or concerns please secure chat "ACH wound/ostomy". Thank you for the consult! I personally [...] History: Diagnosis Date Acute renal failure (ARF) ([facility]) 10/19/2019 Anemia 12/30/2021 Calcification of abdominal aorta ([facility]) 10/08/202309/[address] abd Diverticulosis 10/08/2023 ESRD on hemodialysis ([facility]) ([facility]) 10/26/2019 Hemodialysis patient ([facility]) ([facility]) HTN (hypertension) 12/01/2022 Hypertension IgA nephropathy 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 10/26/2019 Missed vaccination due to patient refusal 10/08/2023 Has a number of non-scientific based beliefs which interfere with his understanding and acceptance of the medical benefit of vaccination. Nonrheumatic aortic valve stenosis 10/08/2023 Paroxysmal A-fib ([facility]) ([facility]) 08/18/2023 Tobacco abuse 10/08/2023 [2] Past Surgical History: Procedure Laterality Date APPENDECTOMY CARDIAC CATHETERIZATION N/A 10/09/2024 Performed by Bob Watson MD at [facility] Cardiac Cath/EP Lab CARDIAC CATHETERIZATION Bilateral 11/01/2024 Performed by Bob Watson MD at [facility] Cardiac Cath/EP Lab CARDIAC CATHETERIZATION N/A 11/01/2024 Performed by Bob Watson MD at [facility] Cardiac Cath/EP Lab COLONOSCOPY N/A 01/24/2025 Performed by Chadd Davis MD at [facility] ENDOSCOPY FISTULAGRAM (HISTORICAL) Left 09/15/2021 LEFT UPPER ARM HX AV FISTULA CREATION IR EMBOLIZATION 10/14/2024 IR EMBOLIZATION 10/14/2024 [facility] SPECIAL PROCEDURES IR FISTULAGRAM 08/07/2022 IR FISTULAGRAM [...] Daily as needed (PRN constipation). [DISCONTINUED] epoetin roawn-epbx (Retacrit) 78266 UNIT/ML injection Inject 0.79 mL (7,900 Units) under the skin 1 (one) time per week. (Patient not taking: Reported on 02/21/2025) [DISCONTINUED] pantoprazole (ProtoNix) 40 MG injection Infuse 40 mg into a venous catheter 2 times daily. Cosigned by Ahsan Gill DO at 02/26/2025 4:59 PM EDT [facility] Anticoagulation Management Service ([facility]) Inpatient Warfarin Consult HPI: Jun Snyder is a 59 y.o. male admitted on 02/20/2025 for Hemoptysis [R04.2]. Medical History[1] Patient is on warfarin for mechanical AVR and has a goal INR 2.0 - 3.0. Patient was referred to [facility], but so far has been managed at facilities, most recently [facility]. Pt's home dose of warfarin is 1.5mg [...] RPh [facility] Consult Service is available daily [phone] via [employer] Secure [employer]. [1] Past Medical History: Diagnosis Date Acute renal failure (ARF) ([facility]) 10/19/2019 Anemia 12/30/2021 Calcification of abdominal aorta ([facility]) 10/08/202309/[address] abd Diverticulosis 10/08/2023 ESRD on hemodialysis ([facility]) ([facility]) 10/26/2019 [facility] [facility]) ([facility]) HTN (hypertension) 12/01/2022 Hypertension IgA nephropathy 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 10/26/2019 Missed vaccination due to patient refusal 10/08/2023 Has a number of non-scientific based beliefs which interfere with his understanding and acceptance of the medical benefit of vaccination. Nonrheumatic aortic valve stenosis 10/08/2023 Paroxysmal A-fib ([facility]) ([facility]) 08/18/2023 Tobacco abuse 10/08/2023 Nephrology Progress Note Following for ESRD Current Inpatient Medications: Reviewed on NOV. Vitals: BP 134/74 (Patient Position: Lying) Pulse 85 Temp 37.2 C (99 F) (Temporal) Resp 20 Ht 1.778 m (5' 10") Wt 60.8 kg (134 lb) SpO2 98% [...] original note were not included. PHYSICAL THERAPY [facility] Initial Evaluation Name/MRN: Jair Snyder ([id number]) Evaluation Date: 02/25/2025 Date of : 1965 Admission Date: 02/20/2025 5:41 PM Age: 59 y.o. Room[facility]Bed: [facility] A Discharge Recommendation: Custodial Facility Equipment Needed: No Assessment IMPRESSION: Patient [...] awake in bed, agreeable to therapy. Pain: "butt" Past Medical History: Medical History[1] Past Surgical History: Surgical History[2] Admission Diagnosis: Patient Active Problem List Diagnosis Date Noted Hemoptysis 02/20/2025 Severe malnutrition (CMS/HCC) ([facility]) 01/19/2025 Complication of tracheostomy (CMS/HCC) ([facility]) 01/19/2025 [facility] (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 01/12/2025 Acute respiratory failure with hypoxia ([facility]) [J96.01] 01/08/2025 Tracheostomy care ([facility]) [Z43.0] 01/08/2025 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[facility]) 01/08/2025 Sacral osteomyelitis (CMS/HCC) ([facility]) 01/03/2025 Pneumonia of both lungs due to methicillin susceptible Staphylococcus aureus (MSSA) ([facility]) 01/01/2025 Leukocytosis 12/30/2024 Decubitus ulcer of sacral region, unstageable ([facility]) 12/30/2024 Peritonitis due to fungus ([facility]) 11/30/2024 History of abdominal surgery 11/30/2024 Leg DVT (deep venous thromboembolism), acute, left ([facility]) 11/30/2024 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, 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 of skin (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) 11/30/2024 Pleural effusion 11/28/2024 Gastric ulceration 2024 Atrial flutter, unspecified type ([facility]) 10/03/2024 RSV (acute bronchiolitis due to respiratory syncytial virus) 10/03/2024 Diverticulosis 10/08/2023 Nonrheumatic aortic valve stenosis 10/08/2023 Calcification of abdominal aorta ([facility]) 10/08/2023 Missed vaccination due to patient refusal 10/08/2023 Tobacco abuse 10/08/2023 Alcohol use disorder in remission 10/08/2023 Paroxysmal A-fib ([facility]) ([facility]) 08/18/2023 HTN (hypertension) 12/01/2022 ESRD on hemodialysis ([facility]) ([facility]) 10/26/2019 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 10/26/2019 BRBPR (bright red blood per rectum) 01/19/2025 Aortic stenosis 10/03/2024 Upper GI bleed 10/03/2024 S/P AVR 10/03/2024 Acute hypoxic respiratory failure ([facility]) 10/03/2024 Acute encephalopathy 10/03/2024 Pneumoperitoneum 10/03/2024 [...] of Care supervision is transferred to a [facility] Therapy Services Physical Therapist. Goals and/or treatment plan was established in collaboration with patient/family/other representatives. [1] Past Medical History: Diagnosis Date Acute renal failure (ARF) ([facility]) 10/19/2019 Anemia 12/30/2021 Calcification of abdominal aorta ([facility]) 10/08/202309/[address] abd Diverticulosis 10/08/2023 ESRD on hemodialysis ([facility]) ([facility]) 10/26/2019 Hemodialysis patient ([facility]) ([facility]) HTN (hypertension) 12/01/2022 Hypertension IgA nephropathy 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 10/26/2019 Missed vaccination due to patient refusal 10/08/2023 Has a number of non-scientific based beliefs which interfere with his understanding and acceptance of the medical benefit of vaccination. Nonrheumatic aortic valve stenosis 10/08/2023 Paroxysmal A-fib ([facility]) ([facility]) 08/18/2023 Tobacco abuse 10/08/2023 [2] Past Surgical History: Procedure Laterality Date APPENDECTOMY CARDIAC CATHETERIZATION N/A 10/09/2024 Performed by Bob Watson MD at [facility] Cardiac Cath/EP Lab CARDIAC CATHETERIZATION Bilateral 11/01/2024 Performed by Bob Watson MD at [facility] Cardiac Cath/EP Lab CARDIAC CATHETERIZATION N/A 11/01/2024 Performed by Bob Watson MD at [facility] Cardiac Cath/EP Lab COLONOSCOPY N/A 01/24/2025 Performed by Chadd Davis MD at [facility] ENDOSCOPY FISTULAGRAM (HISTORICAL) Left 09/15/2021 LEFT UPPER ARM HX AV FISTULA CREATION IR EMBOLIZATION 10/14/2024 IR EMBOLIZATION 10/14/2024 [facility] SPECIAL PROCEDURES IR FISTULAGRAM 08/07/2022 IR FISTULAGRAM 08/07/2022 [facility] IR IMAGING TONSILLECTOMY (HISTORICAL) Hospitalist Progress [...] bilateral pleural effusions. 5. Cholelithiasis, and dimin[place] kidneys. Seen by pulm service Started on IV abx Started on heparin gtt as well Interval History: pt feels ok Some dizziness at times No more bleeding issues 02/23 Pt awake Reports his PEG is uncomfortable-- wants removed if able No CP 02/24 Pt awake Some cough at times Sob better 02/25 Pt awake No sob today No CP Adult diet Regular @IODETAILS@ @[email or web address]@ Medications: Continuous Meds[1] Scheduled Meds[2] Recent Labs 02/25/25 0028 WBC 7.5 HGB 7.6* PLT 280 No results for input(s): "NA", "K", "CL", "CO2", "BUN", "CREATININE", "GLUCOSE" in the last 72 hours. No results for input(s): "AST", "ALT", "BILITOT", "ALKPHOS" in the last 72 hours. No lab exists for component: ALB No results found for: "TRIG", "HDL", "LDLCALC", "CHOL" Recent Labs 02/24/25 0010 02/25/25 0028 02/25/25 2345 INR 1.3* 1.3* 1.3* No results for input(s): "CKTOTAL", "CKMB", "TROPONINI" in the last 72 hours. Objective: Vitals: BP 132/82 (BP Location: Right arm, Patient Position: Lying) Pulse 83 Temp 36.8 C (98.3 F) (Temporal) Resp 18 Ht 5' 10" (1.778 m) Wt 134 lb (60.8 kg) [...] TID WC warfarin, 1.5 mg, Oral, Once [facility] Anticoagulation Management Service ([facility]) Inpatient Warfarin Consult HPI: Jun Snyder is a 59 y.o. male admitted on 02/20/2025 for Hemoptysis [R04.2]. Medical History[1] Patient is on warfarin for mechanical AVR and has a goal INR 2.0 - 3.0. Patient was referred to [facility], but so far has been managed at facilities, most recently [facility]. Pt's home dose of warfarin is 1.5mg [...] PharmD [facility] Consult Service is available daily [phone] via [employer] Secure Chat. [1] Past Medical History: Diagnosis Date Acute renal failure (ARF) ([facility]) 10/19/2019 Anemia 12/30/2021 Calcification of abdominal aorta ([facility]) 10/08/202309/[address] abd Diverticulosis 10/08/2023 ESRD on hemodialysis ([facility]) ([facility]) 10/26/2019 Hemodialysis patient ([facility]) ([facility]) HTN (hypertension) 12/01/2022 Hypertension IgA nephropathy 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 10/26/2019 Missed vaccination due to patient refusal 10/08/2023 Has a number of non-scientific based beliefs which interfere with his understanding and acceptance of the medical benefit of vaccination. Nonrheumatic aortic valve stenosis 10/08/2023 Paroxysmal A-fib ([facility]) ([facility]) 08/18/2023 Tobacco abuse 10/08/2023 Vancomycin therapy has been discontinued by Hussain Quintana on 02/24. Thank you for the consult. Pharmacy signing off for vancomycin dosing. Laura DumontD, Date: 02/24/25 Time: 4:08 PM Images from the original note were not included. [facility] - Infectious Diseases Attending Progress Note [...] F) Resp 16 Ht 1.778 m (5' 10") Wt 60.8 kg (134 lb) SpO2 99% [...] bilateral pleural effusions. 5. Cholelithiasis, and [place] kidneys. Seen by pulm service Started on IV abx Started on heparin gtt as well Interval History: pt feels ok Some dizziness at times No more bleeding issues 02/23 Pt awake Reports his PEG is uncomfortable-- wants removed if able No CP 02/24 Pt awake Some cough at times Sob better Adult diet Regular @IODETAILS@ @[email or web address]@ Medications: Continuous Meds[1] Scheduled Meds[2] Recent Labs 02/22/259902/23/2531 WBC 9.0 8.6 HGB 7.8* 8.6* PLT 282 316 Recent Labs 02/22/259902/23/2531 NA 132* 135* K 3.4* 4.1 CL 94* 99 CO2 25 BUN 36* 21 CREATININE 3.99* 2.78* GLUCOSE 121* 110* Recent Labs 02/22/259902/23/25 0032 AST 35* 37* ALT 9 10 BILITOT 0.6 0.6 ALKPHOS 120 136 No results found for: "TRIG", "HDL", "LDLCALC", "CHOL" Recent Labs 02/22/259902/23/252 02/24/25 0010 INR 1.4* 1.3* 1.3* No results for input(s): "CKTOTAL", "CKMB", "TROPONINI" in the last 72 hours. Objective: Vitals: BP 131/86 (BP Location: Right arm, Patient Position: Lying) Pulse 109 Temp 36.9 C (98.4 F) (Temporal) Resp 16 Ht 5' 10" (1.778 m) Wt 134 lb (60.8 kg) [...] Directive: Full Code Ramón Romano MD, [facility] Hospitalist [1] heparin, 5-30 Units/kg/hr, Last Rate: 18 Units/kg/hr (02/24/25 0736) [2] B complex-vitamin C-folic acid, 1 capsule, Oral, Daily metoprolol tartrate, 25 mg, Oral, BID pantoprazole, 40 mg, Oral, qAM AC QUEtiapine, 25 mg, Per G Tube, Nightly sevelamer carbonate, 800 mg, Oral, TID WC vancomycin (Vancocin) intermittent dosing (placeholder), , Other, RX Placeholder [facility] Anticoagulation Management Service ([facility]) Inpatient Warfarin Consult HPI: Jun Snyder is a 59 y.o. male admitted on 02/20/2025 for Hemoptysis [R04.2]. Medical History[1] Patient is on warfarin for mechanical AVR and has a goal INR 2.0 - 3.0. Patient was referred to [facility], but so far has been managed at facilities, most recently [facility]. Pt's home dose of warfarin is 1.5mg [...] PharmD [facility] Consult Service is available daily [phone] via [employer] Secure [employer]. [1] Past Medical History: Diagnosis Date Acute renal failure (ARF) (HCC) 10/19/2019 Anemia 12/30/2021 Calcification of abdominal aorta ([facility]) 10/08/202309/[address] abd Diverticulosis 10/08/2023 ESRD on hemodialysis ([facility]) ([facility]) 10/26/2019 Hemodialysis patient ([facility]) ([facility]) HTN (hypertension) 12/01/2022 Hypertension IgA nephropathy 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 10/26/2019 Missed vaccination due to patient refusal 10/08/2023 Has a number of non-scientific based beliefs which interfere with his understanding and acceptance of the medical benefit of vaccination. Nonrheumatic aortic valve stenosis 10/08/2023 Paroxysmal A-fib ([facility]) ([facility]) 08/18/2023 Tobacco abuse 10/08/2023 Images from the original note were not included. [facility] - Infectious Diseases Attending [...] necrotic Lines: sites clean Labs: Recent Labs 02/21/25 0053 02/22/25 0100 [...] 10 PROCAL 0.68* -- -- Recent Labs 02/21/25 0053 02/22/25 0100 02/23/25 [...] from the original note were not included. [facility], Pulmonary Medicine [phone] PULMONARY PROGRESS NOTE. Patient - Jun Snyder, Age - 59 y.o. - 1965 Room Number - W3-334/[id number] A Consulting - Ramón Romano MD [id number] Date of Admission - 02/20/2025 5:41 PM [...] (Temporal) Resp 16 Ht 1.778 m (5' 10") Wt 61.1 kg (134 lb 11.2 oz) [...] 3.2 2.6 HEPATIC: Recent Labs 02/21/25 0053 02/22/25 0100 02/23/25 0032 AST 39* 35* 37* ALT 8 9 10 BILITOT 0.8 0.6 0.6 ALKPHOS 120 120 136 LACTATE: No lab exists for component: "LACTA" PROCALCITONIN: Recent Labs 02/21/2552 PROCAL 0.68* TROPONIN: No results for input(s): "TROPONINI" in the last 72 hours. BNP: No results for input(s): "BNP" in the last 72 hours. INR: Recent Labs 02/20/25 1825 02/22/25 0100 02/23/25 0032 INR 1.4* 1.4* 1.3* BLOOD GAS: No results for input(s): "PH", "PCO2", "PO2", "HCO3", "O2SAT" in the last 72 hours. Cultures: Blood [...] 02/22/2025 Strep Ag: No results for input(s): "STREPPNEUMO" in the last 72 hours. No lab [...] PM EDT I have personally performed a pmka-oz-oaxy diagnostic evaluation on this patient on date of service 02/23/25. History, labs, imaging studies, and electronic medical record have been reviewed by me. This note documented by the [x]housekeeping lead []ARMIN reflects my history, exam, and medical [...] weekend. Please reach out with any concerns [facility] Anticoagulation Management Service ([facility]) Inpatient Warfarin Consult HPI: Jun Snyder is a 59 y.o. male admitted on 02/20/2025 for Hemoptysis [R04.2]. Medical History[1] Patient is on warfarin for mechanical AVR and has a goal INR 2.0 - 3.0. Patient was referred to [facility], but so far has been managed at facilities, most recently [facility]. Pt's home dose of warfarin is 1.5mg [...] PharmD [facility] Consult Service is available daily [phone] via [employer]. [1] Past Medical History: Diagnosis Date Acute renal failure (ARF) ([facility]) 10/19/2019 Anemia 12/30/2021 Calcification of abdominal aorta ([facility]) 10/08/202309/[address] abd Diverticulosis 10/08/2023 ESRD on hemodialysis ([facility]) ([facility]) 10/26/2019 Hemodialysis patient ([facility]) ([facility]) HTN (hypertension) 12/01/2022 Hypertension IgA nephropathy 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 10/26/2019 Missed vaccination due to patient refusal 10/08/2023 Has a number of non-scientific based beliefs which interfere with his understanding and acceptance of the medical benefit of vaccination. Nonrheumatic aortic valve stenosis 10/08/2023 Paroxysmal A-fib ([facility]) ([facility]) 08/18/2023 Tobacco abuse 10/08/2023 Hospitalist Progress [...] bilateral pleural effusions. 5. Cholelithiasis, and [place] kidneys. Seen by pulm service Started on IV abx Started on heparin gtt as well Interval History: pt feels ok Some dizziness at times No more bleeding issues 02/23 Pt awake Reports his PEG is uncomfortable-- wants removed if able No CP Adult diet Regular @IODETAILS@ @[email or web address]@ Medications: Continuous Meds[1] Scheduled Meds[2] Recent Labs 02/21/25 0053 02/22/25 9902/23/25 0032 WBC 7.0 9.0 8.6 HGB 8.3* 7.8* 8.6* PLT 316 282 316 Recent Labs 02/21/255202/22/259902/23/2531 NA 131* 132* 135* K 3.1* 3.4* 4.1 CL 91* 94* 99 CO2 BUN 29* 36* 21 CREATININE 2.89* 3.99* 2.78* GLUCOSE 74 121* 110* Recent Labs 02/21/255202/22/259902/23/2531 AST 39* 35* 37* ALT 8 9 10 BILITOT 0.8 0.6 0.6 ALKPHOS 120 120 136 No results found for: "TRIG", "HDL", "LDLCALC", "CHOL" Recent Labs 02/20/25 1825 02/22/259902/23/2531 INR 1.4* 1.4* 1.3* No results for input(s): "CKTOTAL", "CKMB", "TROPONINI" in the last 72 hours. Objective: Vitals: BP 131/80 (BP Location: Right arm, Patient Position: Lying) Pulse 94 Temp 36.2 C (97.1 F) (Temporal) Resp 16 Ht 5' 10" (1.778 m) Wt 134 lb 11.2 oz [...] Advance Directive: Full Code Ramón Romano MD, [facility] Hospitalist [1] heparin, 5-30 Units/kg/hr, Last Rate: [...] original note were not included. [facility] Wound Care/NPWT Progress Note Jun Snyder AGE: [...] (Temporal) Resp 16 Ht 1.778 m (5' 10") Wt 61.1 kg (134 lb 11.2 oz) [...] for pain with PO pain medication, per direct care staffer, prior to wound VAC dressing change. Wet [...] (H) 02/23/2025 Prealbumin: No results found for: "PREALBUMIN" Albumin:No components found for: LABALBU Sed Rate:No [...] wrist Abrasion: -cleanse with antibacterial soap/water, leave FELT COVERER daily Sacral Stage 4 pressure injury (POA): [...] to follow Recommend to follow up at [facility] Outpatient wound care center after hospital discharge. Any questions or concerns please secure chat "ACH wound/ostomy". Thank you for the consult! I personally [...] History: Diagnosis Date Acute renal failure (ARF) ([facility]) 10/19/2019 Anemia 12/30/2021 Calcification of abdominal aorta ([facility]) 10/08/202309/[address] abd Diverticulosis 10/08/2023 ESRD on hemodialysis ([facility]) ([facility]) 10/26/2019 Hemodialysis patient ([facility]) ([facility]) HTN (hypertension) 12/01/2022 Hypertension IgA nephropathy 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 10/26/2019 Missed vaccination due to patient refusal 10/08/2023 Has a number of non-scientific based beliefs which interfere with his understanding and acceptance of the medical benefit of vaccination. Nonrheumatic aortic valve stenosis 10/08/2023 Paroxysmal A-fib ([facility]) ([facility]) 08/18/2023 Tobacco abuse 10/08/2023 [2] Past Surgical History: Procedure Laterality Date APPENDECTOMY CARDIAC CATHETERIZATION N/A 10/09/2024 Performed by Bob Watson MD at [facility] Cardiac Cath/EP Lab CARDIAC CATHETERIZATION Bilateral 11/01/2024 Performed by Bob Watson MD at [facility] Cardiac Cath/EP Lab CARDIAC CATHETERIZATION N/A 11/01/2024 Performed by Bob Watson MD at [facility] Cardiac Cath/EP Lab COLONOSCOPY N/A 01/24/2025 Performed by Chadd Davis MD at [facility] ENDOSCOPY FISTULAGRAM (HISTORICAL) Left 09/15/2021 LEFT UPPER [...] needed (PRN constipation). [DISCONTINUED] epoetin rowan-epbx (Retacrit) 04406 UNIT/ML injection Inject 0.79 mL (7,900 Units) [...] (Temporal) Resp 16 Ht 1.778 m (5' 10") Wt 61.1 kg (134 lb 11.2 oz) [...] any questions or concerns Bree Molina APRN [facility] A-G LAST CODE STRIPER [facility] [phone] Pt seen and examined independently by me. I reviewed with CERTIFIED FLEX ENDOSCOPE REPROCESSOR-SALVAGER the medical history and the findings on physical examination. I discussed the patient s diagnosis and concur with the treatment plan as documented in his note. Please call [phone] or message me through [employer] with any questions or concerns. Pharmacy Managed Vancomycin Dosing Service Progress Note Consult Date: 02/22/25 Patient Name: Jun Snyder Allergies: Lisinopril Age: 59 y.o. Sex: male Ht: Height: 177.8 cm (5' 10") TBW: Weight: 61.1 kg (134 lb 11.2 oz) BMI: Body mass index is 19.33 kg/m . Lab Results Component Value Date CREATININE 3.99 (H) 02/22/2025 CREATININE 2.89 (H) 02/21/2025 BUN 36 (H) 02/22/2025 BUN 29 (H) 02/21/2025 WBC 9.0 02/22/2025 WBC 7.0 02/21/2025 DW: 61.1 kg Renal: [x]HD []CRRT []PD [] CrCl ml/min (Cockcroft-Gault, if BLOSSOM, no BEHAVIOR ANALYST) Infectious Diagnosis: Pneumonia (target level = 15-20 [...] 4:36 PM Daryn Nolasco PharmD (available on [employer]) Images from the original note were not included. [facility], Pulmonary Medicine [phone] PULMONARY PROGRESS NOTE. Patient - Jun Snyder, [...] F) Resp 20 Ht 1.778 m (5' 10") Wt 61.1 kg (134 lb 11.2 oz) [...] 120 LACTATE: No lab exists for component: "LACTA" PROCALCITONIN: Recent Labs 02/21/2552 PROCAL 0.68* TROPONIN: No results for input(s): "TROPONINI" in the last 72 hours. BNP: No results for input(s): "BNP" in the last 72 hours. INR: Recent Labs 02/20/25182402/22/2599 INR 1.4* 1.4* BLOOD GAS: No results for input(s): "PH", "PCO2", "PO2", "HCO3", "O2SAT" in the last 72 hours. Cultures: Blood [...] 02/22/2025 Strep Ag: No results for input(s): "STREPPNEUMO" in the last 72 hours. No lab [...] PM EDT I have personally performed a yctt-cl-zggz diagnostic evaluation on this patient on date of service 02/22/2025. History, labs, imaging studies, and electronic medical record have been reviewed by me. This note documented by the [x]housekeeping lead []ARMIN reflects my history, exam, and medical [...] bilateral pleural effusions. 5. Cholelithiasis, and [place] kidneys. Seen by pulm service Started on IV abx Started on heparin gtt as well Interval History: pt feels ok Some dizziness at times No more bleeding issues Adult diet Regular @IODETAILS@ @[email or web address]@ Medications: Continuous Meds[1] Scheduled Meds[2] Recent Labs 02/20/25182402/21/255202/22/25 010 WBC 9.4 7.0 9.0 HGB 8.7* 8.3* 7.8* PLT 312 316 282 Recent Labs 02/20/25182402/21/255202/22/2599 NA 133* 131* 132* K 3.1* 3.1* 3.4* CL 92* 91* 94* CO2 BUN 29* 29* 36* CREATININE 2.57* 2.89* 3.99* GLUCOSE 80 74 121* Recent Labs 02/21/255202/22/25 0100 AST 39* 35* ALT 8 9 BILITOT 0.8 0.6 ALKPHOS 120 120 No results found for: "TRIG", "HDL", "LDLCALC", "CHOL" Recent Labs 02/20/25182402/22/2599 INR 1.4* 1.4* No results for input(s): "CKTOTAL", "CKMB", "TROPONINI" in the last 72 hours. Objective: Vitals: BP 136/77 Pulse 79 Temp 36.7 C (98 F) (Temporal) Resp 20 Ht 5' 10" (1.778 m) Wt 134 lb 11.2 oz [...] original note were not included. OCCUPATIONAL THERAPY [facility] Name/MRN: Jair Snyder ([id number]) Date: 02/22/2025 PT refusing to participate in therapy this AM, will continue to follow and re approach for OT eval. [facility] OT Nephrology Progress Note Following for ESRD seen on hd No complaints today Current Inpatient Medications: Reviewed on NOV. Vitals: BP 131/82 (Patient Position: Lying) Pulse 91 Temp 36.7 C (98 F) (Temporal) Resp 20 Ht 1.778 m (5' 10") Wt 61.1 kg (134 lb 11.2 oz) [...] any questions or concerns Bree Molina APRN [facility]ER A-G LAST CODE STRIPER [facility] [phone] Pt seen and examined independently by me. I reviewed with DENIA-SALVAGER the medical history and the findings on physical examination. I discussed the patient s diagnosis and concur with the treatment plan as documented in his note. Please call [phone] or message me through [employer] with any questions or concerns. Images from the original note were not included. PHYSICAL THERAPY [facility] Name/MRN: Jair Snyder ([id number]) Date: 02/22/2025 Pt declined to work with therapy at this time, stating he wants to wait until after the wound vac is put on. Will reattempt at a later date. Sangeeta Sarabia PT Images from the original note were not included. PHYSICAL THERAPY [facility] Name/MRN: Jair Snyder ([id number]) Date: 02/21/2025 Pt declined to work with therapy at this time, stating he wanted to eat first. Will reattempt at a later date. Sangeeta Lambert, PT Pt awake Some cough, no further [...] Time 17 min documented in this encounter [facility] 03-05-2025 Miscellaneous Notes Formattin g of this note might be different from the original. Auth is now pending with [facility] for [facility]. Auth ID: [id number] . The insurance needs PT and OT notes- as PT note yesterday incomplete , they are both requested . Confirmed pickup time of 4:00pm on 03/05/25 by transport [employer] at phone number [phone]. Location of facility drop off is [facility]. Facility notified via Careport, TCC notified on secure chat. Discharge med list transmitted to [facility] via [employer] per TCC request. Tcc requested transport to be set up at 4 PM to permit auth to be ongoing- facility can accept- just requested it be started today - medicaid analyst notified, and discharge orders faxed, will confirm in secure chat the time and notify the tx team , orders in [facility] , rosendo done, [facility] . TCC requested OT notes this am - for ongoing auth - PT INR is now good 1.8 , notified facility want to send today , auth was only good thru 03/02 notified SUBSTANCE ADDICTION COORDINATOR to confirm about auth requirements again today .. Transport in will call, wound VAC to go with patient, discharge orders in [facility] , LIVES at facility LT - the facility wants to skill- tcc is working with them to have him discharge later today - transport in will call . Block Mechanic notified to send orders and med rec to [facility] Problem: Knowledge Deficit Goal: Patient/family/caregiver demonstrates [...] Note DC plan is return to ECF/SNF- [facility], no auth needed to return however facility [...] Progress Note 03/03/25 1025 Rapid Rounds Attendance Clerical Associate Planned Discharge Disposition [facility] no [facility] needed) Today we still await Other (INR >or = 1.8 per SAILAJA) Clinical stability Attending completion of discharge workflow Additional Comments: We have a skilled AUTH that expires midnight tonight, however facility will still accept without AUTH per previous CM notes This Clerical Associate was tasked to follow this patient through the weekend. Chart and Careport were reviewed. INR this am is 1.6, subtherapeutic. Facility updated. Transportation is in will call. pmp project manager will continue to follow for transitional [...] med list and updated notes transmitted to [facility] via Careport per TCC request. Per epic [...] 1.8 - and need labs post at [facility] to follow . Block Mechanic tasked to send wound vac and clinicals- requested PT/OT notes for ongoing auth . Rosendo done- transport in will call to return to [facility] where he lives facility did want to [...] Roundtrip in will call per TCC. Tasked SUBSTANCE ADDICTION COORDINATOR to set up transport in will call, [...] 13 today. Plan is to return to [facility]. . Length of Stay (Days): 7 GMLOS: [...] therapy notes. Want to skill him at [facility]. Started on IV antibiotics for aspiration pneumonia. Continues on a heparin gtt. . Updated notes sent to [facility] via [facility] per [facility] request. Await review and response regarding [...] pressure injuries/wounds this shift so RN SHAQ [facility] would prefer to SKILL patient- [...] Interventions Goal: Promote nutritional intake Outcome: Progressing [facility] would prefer to SKILL patient- LTC. + bedhold will return - has woundVAC and ivab on hep gtt, not ready for discharge , [facility] tasked to send clinicals facility is updated . Updated [facility] per TCC request. Await review and [...] Outcome: Not Progressing Has dialysis at facility, [facility].. Pt came to ER from dialysis due to hemoptysis. Had a trach removed 01/19. He is a bed hold at [facility]. They would like to skill him if able. Unable to tell me where he went to dialysis this am, asking facility. Referral placed to [facility] via Careport per TCC request. Await review [...] of blood components. documented in this encounter [facility] 03-05-2025 Note [facility] 03-05-2025 Hospital course Narrative Images from the original note were not included. Hospitalist Discharge Summary - [facility] Acute Care [facility] ([facility] Jun Snyder : 1965 Admit date: 02/20/2025 Discharge date: 03/05/2025 Admitting Physician: Bettye Pierre MD Primary Care Physician: Leilani Troncoso Recommended Follow-up: [facility] Wound Ostomy [address] [facility] [address] [facility] [address] [place] [address] [facility] [address] Call Call and schedule appointment in [...] (97.1 F) (Temporal) Resp 20 Ht 5' 10" (1.778 m) Wt 134 lb (60.8 kg) [...] 99 77 68* No results for input(s): "AST", "ALT", "BILITOT", "ALKPHOS" in the last 72 hours. No lab exists for component: ALB No results found for: "TRIG", "HDL", "LDLCALC", "CHOL" No results found for: "PHART", "PO2ART", "AOF4WOK" Recent Labs 03/04/25 0156 03/04/25 0946 03/05/25 0343 INR 1.5* 1.6* 1.8* No results for input(s): "DDIMER" in the last 72 hours. No results found for: "HGBA1C" No results found for: "TSH" Urine Culture: No results found for this or any previous visit. Imaging: CTA chest angiogram w and/or wo IV contrast Result Date: 02/20/2025 Patient Name: JUN [facility]YDER : 1965 [id number] Exam Date/Time: 02/20/2025 19:01 Procedure: CT CHEST [...] bilateral pleural effusions. 5. Cholelithiasis, and [facility] [place] kidneys. Report Dictated on Electronically Signed By: [...] Your Medications These medications were sent to [facility] [address] [place] [id number] metoprolol tartrate 25 MG tablet pantoprazole 40 MG EC tablet QUEtiapine 25 MG tablet sevelamer carbonate 800 MG tablet You can get these medications from any pharmacy Bring a paper prescription for each of these medications oxyCODONE 5 MG immediate release tablet Signed: Anthony Hurtado DO 03/05/2025, 9:30 AM documented in this encounter [facility] 03-03-2025 Nurse Note Patient Name: Jun Snyder Patient : 1965 Acct: [id number] Date of Admission: 02/20/2025 Room/Bed: W3334/W334 A Code Status: Full Code Allergies: Allergies[1] [...] Lab Results Component Value Date/Time WBC 8.9 03/03/2025 0212 HGB 8.3 (L) 03/03/2025 021 HGB 9.4 11/11/2024 0230 HCT 27.8 (L) 03/03/2025 021 PLT 397 03/03/2025 0212 NA 140 03/03/20252 K 6.2 (HH) 03/03/2025 021 CL 101 03/03/20252 CO2 28 03/03/2025211 BUN 26 (H) 03/03/2025211 CREATININE 3.21 (H) 03/03/2025211 CREATININE 9.99 (H) 10/27/2019 0545 CALCIUM 9.8 03/03/2025211 PHOS 2.6 02/23/2025 0032 IV Drips and Rate/Dose Continuous Meds[3] Safety - Before each treatment: Dialysis Machine No.: [id number] RO Machine Number: [id number] Dialyzer Lot No.: [id number] Tubing Lot Number: [id number] All Connections Secure: Yes Venous Parameters Set: Yes Arterial Parameters Set: Yes NS Bag: Yes Saline Line Double Clamped: Yes Dialyzer: Nipro Prime Volume (mL): 200 mL RO Machine Number: [id number] RO Machine Log Sheet Completed: Yes Machine Alarm Self Test: Completed, Passed (03/03/25739) Air Foam Detector: Tested, Proper Function, pH Reading Extracorporeal Circuit Tested for Integrity: Yes Machine Conductivity: 13.7 Manual Conductivity: 13.6 Manual Ph: 7 Bleach Test (Neg): Yes Bath Temperature: 36 C (96.8 F) Conductivity Meter Serial #: [id number] Machine Functioning Alarm Free? Yes Dialysis Bath: K+ (Potassium): 2 Ca+ (Calcium): 2.5 Na+ (Sodium): 137 HCO3 (Bicarb): 35 Bicarbonate Concentrate Lot No.: [id number] Acid Concentrate Lot No.: [id number] Chlorine Testing - Before each treatment and every 4 hours: Time On: 0942 Time Off: 1242 Treatment Goal: 2L Weight Height: 177.8 cm (5' 10") (02/23/25 141) Weight: 60.8 kg (134 lb) (02/23/25 141) BMI (Calculated): 19.23 (02/23/251412) 1st check: less [...] mmHg 80 600 Yes pt sleeping, removed 4 03/03/25 1230 350 mL/min 26859 ml/hr -70 mmHg 170 mmHg 80 600 [...] Active Problem List Diagnosis Anemia Paroxysmal A-fib ([facility]) ([facility]) HTN (hypertension) ESRD on hemodialysis ([facility]) ([facility]) 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 Diverticulosis Nonrheumatic aortic valve stenosis Calcification of abdominal aorta ([facility]) Missed vaccination due to patient refusal Tobacco abuse Alcohol use disorder in remission Atrial flutter, unspecified type ([facility]) RSV (acute bronchiolitis due to respiratory syncytial virus) Aortic stenosis Upper GI bleed S/P AVR Acute hypoxic respiratory failure ([facility]) Acute encephalopathy Pneumoperitoneum Gastric ulceration Severe malnutrition ([facility]) ([facility]) Pleural effusion Peritonitis due to fungus ([facility]) History of abdominal surgery Leg DVT (deep venous thromboembolism), acute, left ([facility]) 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, 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) 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HCC) Leukocytosis Decubitus ulcer of sacral region, unstageable (HCC) Pneumonia of both lungs due to methicillin susceptible Staphylococcus aureus (MSSA) (HCC) Sacral osteomyelitis (CMS/HCC) (HCC) Acute respiratory failure with hypoxia ([facility]) [J96.01] Tracheostomy care ([facility]) [Z43.0] 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[facility]) [facility] (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 Complication of tracheostomy (CMS/HCC) ([facility]) BRBPR (bright red blood per rectum) Hemoptysis [3] heparin, 5-30 Units/kg/hr, Last Rate: 20 Units/kg/hr (03/03/25 07) In patient's chart, d/t patient being on his call light excessively and finally telling me he wants something for pain. Please see eMAR for administration Patient Name: Jun Snyder Patient : 1965 Acct: [id number] Date of Admission: 02/20/2025 Room[facility]: [facility] A Code Status: Full Code Allergies: Allergies[1] [...] - Before each treatment: Dialysis Machine No.: [id number] RO Machine Number: [id number] Dialyzer Lot No.: [id number] Tubing Lot Number: [id number] All Connections Secure: Yes Venous Parameters Set: Yes Arterial Parameters Set: Yes NS Bag: Yes Saline Line Double Clamped: Yes Dialyzer: Nipro Prime Volume (mL): 200 mL RO Machine Number: [id number] RO Machine Log Sheet Completed: Yes Machine Alarm Self Test: Completed, Passed (03/01/25 0749) Air Foam Detector: Tested, Proper Function, pH Reading Extracorporeal Circuit Tested for Integrity: Yes Machine Conductivity: 13.6 Manual Conductivity: 13.5 Manual Ph: 7.2 Bleach Test (Neg): Yes Bath Temperature: 36 C (96.8 F) Conductivity Meter Serial #: [id number] Machine Functioning Alarm Free? Yes Dialysis Bath: K+ (Potassium): 3 Ca+ (Calcium): 2.5 Na+ (Sodium): 137 HCO3 (Bicarb): 35 Bicarbonate Concentrate Lot No.: [id number] Acid Concentrate Lot No.: [id number] Chlorine Testing - Before each treatment and every 4 hours: Time On: 0832 Time Off: 1132 Treatment Goal: 2L Weight Height: 177.8 cm (5' 10") (02/23/25 1413) Weight: 60.8 kg (134 lb) [...] Active Problem List Diagnosis Anemia Paroxysmal A-fib ([facility]) ([facility]) HTN (hypertension) ESRD on hemodialysis ([facility]) ([facility]) 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 Diverticulosis Nonrheumatic aortic valve stenosis Calcification of abdominal aorta ([facility]) Missed vaccination due to patient refusal Tobacco abuse Alcohol use disorder in remission Atrial flutter, unspecified type ([facility]) RSV (acute bronchiolitis due to respiratory syncytial virus) Aortic stenosis Upper GI bleed S/P AVR Acute hypoxic respiratory failure ([facility]) Acute encephalopathy Pneumoperitoneum Gastric ulceration Severe malnutrition ([facility]) ([facility]) Pleural effusion Peritonitis due to fungus ([facility]) History of abdominal surgery Leg DVT (deep venous thromboembolism), acute, left ([facility]) 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, 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 of skin ([facility]) 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[facility]) Leukocytosis Decubitus ulcer of sacral region, unstageable ([facility]) Pneumonia of both lungs due to methicillin susceptible Staphylococcus aureus (MSSA) ([facility]) Sacral osteomyelitis ([facility]) ([facility] Acute respiratory failure with hypoxia ([facility]) [J96.01] Tracheostomy care ([facility]) [Z43.0] 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) ([facility]) BRBPR (bright red blood per rectum) [...] the room, and the patients agitation. Nurse online merchandising manager notified maintenance of the problem, and [...] nurses aides cannot leave the floor to shrimp picker his packages, and pt was agreeable to this as well. Patient Name: Jun Snyder Patient : 1965 Acct: [id number] Date of Admission: 02/20/2025 Room[facility]Bed: [facility] A Code Status: Full Code Allergies: Allergies[1] [...] (0) 3 Regular None (Room air) Clear Emerald Warm;Dry;No swelling Soft Active 02/27/25 1202 Alert (0) 3 Regular None (Room air) Clear Emerald Warm Soft -- 02/27/25 1240 -- -- [...] 9.99 (H) 10/27/2019 0545 CALCIUM 9.2 02/23/2025 003 PHOS 2.6 02/23/2025 0032 IV Drips and Rate/Dose Continuous Meds[3] Safety - Before each treatment: Dialysis Machine No.: [id number] RO Machine Number: [id number] Dialyzer Lot No.: [id number] Tubing Lot Number: [id number] All Connections Secure: Yes Venous Parameters Set: Yes Arterial Parameters Set: Yes NS Bag: Yes Saline Line Double Clamped: Yes Dialyzer: Nipro Prime Volume (mL): 200 mL RO Machine Number: [id number] RO Machine Log Sheet Completed: Yes Machine Alarm Self Test: Completed, Passed (02/27/25 07) Air Foam Detector: Tested, Proper Function, pH Reading Extracorporeal Circuit Tested for Integrity: Yes Machine Conductivity: 13.7 Manual Conductivity: 143.6 Manual Ph: 7 Bleach Test (Neg): Yes Bath Temperature: 36 C (96.8 F) Conductivity Meter Serial #: [id number] Machine Functioning Alarm Free? Yes Dialysis Bath: K+ (Potassium): 3 Ca+ (Calcium): 2.5 Na+ (Sodium): 137 HCO3 (Bicarb): 35 Bicarbonate Concentrate Lot No.: [id number] Acid Concentrate Lot No.: [id number] Chlorine Testing - Before each treatment and every 4 hours: Time On: 0843 Time Off: 1143 Treatment Goal: 2L Weight Height: 177.8 cm (5' 10") (02/23/25 1413) Weight: 60.8 kg (134 lb) [...] Active Problem List Diagnosis Anemia Paroxysmal A-fib ([facility]) ([facility]) HTN (hypertension) ESRD on hemodialysis ([facility]) ([facility]) 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 Diverticulosis Nonrheumatic aortic valve stenosis Calcification of abdominal aorta ([facility]) Missed vaccination due to patient refusal Tobacco abuse Alcohol use disorder in remission Atrial flutter, unspecified type ([facility]) RSV (acute bronchiolitis due to respiratory syncytial virus) Aortic stenosis Upper GI bleed S/P AVR Acute hypoxic respiratory failure ([facility]) Acute encephalopathy Pneumoperitoneum Gastric ulceration Severe malnutrition ([facility]) ([facility]) Pleural effusion Peritonitis due to fungus ([facility]) History of abdominal surgery Leg DVT (deep venous thromboembolism), acute, left ([facility]) 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, 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 of skin ([facility]) 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[facility]) Leukocytosis Decubitus ulcer of sacral region, unstageable ([facility]) Pneumonia of both lungs due to methicillin susceptible Staphylococcus aureus (MSSA) ([facility]) Sacral osteomyelitis ([facility]) ([facility] Acute respiratory failure with hypoxia ([facility]) [J96.01] Tracheostomy care ([facility]) [Z43.0] 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) ([facility]) BRBPR (bright red blood per rectum) Hemoptysis [3] heparin, 5-30 Units/kg/hr, Last Rate: 18 Units/kg/hr (02/27/25 0722) Pt called this RN into room and immediately upon entering room, pt started using swear words at RN stating "I need to fix the temperature in this room, someone messed with the thermostat. I've been waiting 1 week for maintenance to come fix my heat." I stated we can make a phone call and request for them to come to the room. Pt then stated "You work here you should know how to fix your rooms". I told pt that I will call and then asked if I could get him a warm blanket in the meantime. Pt stated "I don't need a warm f'in blanket, I need a hot room or else I need another room". I will pass message along and will see if the day shift ward secretary can put a request in. 2322- Notified Dr. Hathaway of patient complaint of SOB and worsening chest pain that he described as dull and tight. Vitals WDL. STAT EKG ordered, patient given Nitrostat, and troponin sent down. 2330- Notified BEHAVIOR ANALYST to assess the patient. Patient Name: Jun Snyder Patient : 1965 Acct: [id number] Date of Admission: 02/20/2025 Room/Bed: W3334/W3334 A Code Status: Full Code Allergies: Allergies[1] [...] Lab Results Component Value Date/Time WBC 8.6 02/23/2025 0032 HGB 8.6 (L) 02/23/2025 003 HGB 9.4 11/11/2024 0230 HCT 27.9 (L) 02/23/2025 003 PLT 316 02/23/2025 0032 NA 135 (L) 02/23/2025 003 K 4.1 02/23/2025 003 CL 99 02/23/2025 0032 CO2 25 02/23/2025 003 BUN 21 02/23/2025 003 CREATININE 2.78 (H) 02/23/202531 CREATININE 9.99 (H) 10/27/2019544 CALCIUM 9.2 02/23/202531 PHOS 2.6 02/23/202531 IV Drips and Rate/Dose Continuous Meds[3] Safety - Before each treatment: Dialysis Machine No.: [id number] RO Machine Number: [id number] Dialyzer Lot No.: [id number] Tubing Lot Number: [id number] All Connections Secure: Yes Venous Parameters Set: Yes Arterial Parameters Set: Yes NS Bag: Yes Saline Line Double Clamped: Yes Dialyzer: Nipro Prime Volume (mL): 200 mL RO Machine Number: [id number] RO Machine Log Sheet Completed: Yes Machine Alarm Self Test: Completed, Passed (02/24/25 08) Air Foam Detector: Tested, Proper Function, pH Reading Extracorporeal Circuit Tested for Integrity: Yes Machine Conductivity: 13.7 Manual Conductivity: 13.7 Manual Ph: 7 Bleach Test (Neg): Yes Bath Temperature: 36 C (96.8 F) Conductivity Meter Serial #: [id number] Machine Functioning Alarm Free? Yes Dialysis Bath: K+ (Potassium): 3 Ca+ (Calcium): 2.5 Na+ (Sodium): 137 HCO3 (Bicarb): 35 Bicarbonate Concentrate Lot No.: [id number] Acid Concentrate Lot No.: [id number] Chlorine Testing - Before each treatment and every 4 hours: Time On: 1113 Time Off: 1413 Treatment Goal: 2L Weight Height: 177.8 cm (5' 10") (02/23/25 1413) Weight: 60.8 kg (134 lb) [...] stable rmvd 2299. Sleeping. Call light in [facility]. 02/24/25 1413 -- -- -- -- -- [...] feed based on dietary recommendations) Provider Name: [facility] Provider Role: Hospitalist Method of Communication: Secure [...] Active Problem List Diagnosis Anemia Paroxysmal A-fib ([facility]) ([facility]) HTN (hypertension) ESRD on hemodialysis ([facility]) ([facility]) 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 Diverticulosis Nonrheumatic aortic valve stenosis Calcification of abdominal aorta ([facility]) Missed vaccination due to patient refusal Tobacco abuse Alcohol use disorder in remission Atrial flutter, unspecified type ([facility]) RSV (acute bronchiolitis due to respiratory syncytial virus) Aortic stenosis Upper GI bleed S/P AVR Acute hypoxic respiratory failure ([facility]) Acute encephalopathy Pneumoperitoneum Gastric ulceration Severe malnutrition ([facility]) ([facility]) Pleural effusion Peritonitis due to fungus ([facility]) History of abdominal surgery Leg DVT (deep venous thromboembolism), acute, left ([facility]) 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, 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 of skin ([facility]) 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[facility]) Leukocytosis Decubitus ulcer of sacral region, unstageable ([facility]) Pneumonia of both lungs due to methicillin susceptible Staphylococcus aureus (MSSA) ([facility]) Sacral osteomyelitis (CMS/HCC) (HCC) Acute respiratory failure with hypoxia ([facility]) [J96.01] Tracheostomy care ([facility]) [Z43.0] 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) BRBPR (bright red blood per rectum) Hemoptysis [3] heparin, 5-30 Units/kg/hr, Last Rate: 18 Units/kg/hr (02/24/25 1601) Patient continuing to order packages when he was instructed not to, multiple times, while at the hospital. Dispatch called [employer] and said a package came to the mail order clerk but they will not have access to retreive until Wednesday morning. It is locked over the weekend. Wound Care consulted for Pressure Injury Prevention. Pt's Kee score= 13 on 02/23 Pt's pressure points assessed. Pt's Right Heel, Elbows, Occiput and ears all intact. Pt currently followed by Wound LAST [facility]ER group for wounds to left toes, left plantar heel, right wrist, and sacrum with wound vac. For left toes, left heel, right wrist, and sacral wound assessments and treatment plan, please see Wound/Ostomy LAST CODE [facility]IPER progress notes. [place] sheet noted at bedside and not on bed underneath pt. This RN offered to replace glide sheet on bed, but pt refused, stating, "That thing just bunches up and gets up under me. I don't want it." Instructed pt on pressure injury prevention and [...] Name: Jun Snyder Patient : 1965 Acct: [id number] Date of Admission: 02/20/2025 Room[facility]Bed: [facility] A Code Status: Full Code Allergies: Allergies[1] [...] BUN 36 (H) 02/22/202599 CREATININE 3.99 (H) 02/22/202599 CREATININE 9.99 (H) 10/27/2019 0545 CALCIUM 9.2 02/22/202599 PHOS 3.2 02/22/2025 0100 IV Drips and Rate/Dose Continuous Meds[3] Safety - Before each treatment: Dialysis Machine No.: [id number] RO Machine Number: [id number] Dialyzer Lot No.: [id number] Tubing Lot Number: [id number] All Connections Secure: Yes Venous Parameters Set: Yes Arterial Parameters Set: Yes NS Bag: Yes Saline Line Double Clamped: Yes Dialyzer: Nipro Prime Volume (mL): 200 mL RO Machine Number: [id number] RO Machine Log Sheet Completed: Yes Machine Alarm Self Test: Completed, Passed (test passed at 0938) (02/22/25 0940) Air Foam Detector: Tested, Proper Function, pH Reading Extracorporeal Circuit Tested for Integrity: Yes Machine Conductivity: 13.7 Manual Conductivity: 13.8 Manual Ph: 7 Bleach Test (Neg): Yes (water check negative at 1215) Bath Temperature: 36 C (96.8 F) Conductivity Meter Serial #: [id number] Machine Functioning Alarm Free? Yes Dialysis Bath: K+ (Potassium): 3 Ca+ (Calcium): 2 Na+ (Sodium): 137 HCO3 (Bicarb): 35 Bicarbonate Concentrate Lot No.: [id number] Acid Concentrate Lot No.: [id number] Chlorine Testing - Before each treatment and every 4 hours: Time On: 0945 Time Off: 1245 Weight Height: 177.8 cm (5' 10") (02/21/25 1448) Weight: 61.1 kg (134 lb [...] 120 mmHg 90 600 Yes Brigitte Molina LAST CODE STRIPER at bedside, no voiced complaints. fluid removal [...] -- -- -- -- 1.778 m (5' 10") -- 02/21/25 1400 -- -- -- -- [...] feed based on dietary recommendations) Provider Name: [facility] [place] Provider Role: Hospitalist Method of Communication: Secure [...] Active Problem List Diagnosis Anemia Paroxysmal A-fib ([facility]) ([facility]) HTN (hypertension) ESRD on hemodialysis ([facility]) ([facility]) 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 Diverticulosis Nonrheumatic aortic valve stenosis Calcification of abdominal aorta ([facility]) Missed vaccination due to patient refusal Tobacco abuse Alcohol use disorder in remission Atrial flutter, unspecified type ([facility]) RSV (acute bronchiolitis due to respiratory syncytial virus) Aortic stenosis Upper GI bleed S/P AVR Acute hypoxic respiratory failure ([facility]) Acute encephalopathy Pneumoperitoneum Gastric ulceration Severe malnutrition ([facility]) ([facility]) Pleural effusion Peritonitis due to fungus ([facility]) History of abdominal surgery Leg DVT (deep venous thromboembolism), acute, left ([facility]) 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, 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 of skin ([facility]) 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[facility]) Leukocytosis Decubitus ulcer of sacral region, unstageable (HCC) Pneumonia of both lungs due to methicillin susceptible Staphylococcus aureus (MSSA) ([facility]) Sacral osteomyelitis (CMS/HCC) ([facility]) Acute respiratory failure with hypoxia ([facility]) [J96.01] Tracheostomy care ([facility]) [Z43.0] 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) BRBPR (bright red blood per rectum) [...] current bed be nearby in case he "hates that piece of shit bed too". Pt declining scheduled medications until after RN calls facility to see if he is actively taking those medications" per pt request. This RN spoke with RN at [facility] to verify medications that pt is taking. Pt arrived to hospital with wound vac on coccyx. Pt declined pictures to be taken of wound for charting. Pt states wound [facility] cared [facility] by [facility]. Pt also mentioned that his Left [...] give pt, scheduled breathing treatment, pt stated "he didn't need one." Pt asking for address to hospital so [...] worse words I could use to you. " Pt arrived on floor via [facility] documented in this encounter [facility] 02-26-2025 Telephone encount er Note Called spoke with a nurse at the home he lives at. She declined to schedule any appointments at this time because they don't know when patient will be discharged. She said to call back once he is out the hospital. There is no other number to contact patient directly [facility] 02-26-2025 Miscellaneous Notes Formattin g of [...] this? Thank you documented in this encounter [facility] 02-23-2025 Telephone encount er Note Called LM to call back and schedule CT and hospital follow up with any ARMIN [facility] 02-23-2025 Miscellaneous Notes Formattin g of this note might be different from the original. Called LM to call back and schedule CT and hospital follow up with any ARMIN Antonio, can we please schedule a 6-week CT scan for this patient and a follow-up appointment after this? Thank you documented in this encounter [facility] 02-23-2025 Consult note Formatting of th [...] was bright red and it stopped just SKETCHER when in transport. Reason for Consult: PEG Removal HISTORY OF PRESENT ILLNESS: Jun Rodas Lillian is a 58 y.o. male with significant [...] fever or moderate pain (4-6). Historical Provider, MD Maya complex-vitamin C-folic acid (Nephro-Nato Rx) 1 MG [...] constipation). 02/21/25 Historical Provider, epoetin rowan-epbx (Retacrit) 98750 UNIT/ML injection Inject 0.79 mL (7,900 Units) [...] 02/20/2025 Patient Name: [facility]UN SN[facility]DER : 1965 [id number] Exam Date/Time: 02/20/2025 19:01 Procedure: CT CHEST [...] bilateral pleural effusions. 5. Cholelithiasis, and diminutive [place] kidneys. Report Dictated on Electronically Signed By: [...] Jaskaran Bey MD General Surgery PGY-2 Pager [phone] [1] Past Medical History: Diagnosis Date Acute renal failure (ARF) ([facility]) 10/19/2019 Anemia 12/30/2021 Calcification of abdominal aorta ([facility]) 10/08/202309/[address] abd Diverticulosis 10/08/2023 ESRD on hemodialysis ([facility]) ([facility]) 10/26/2019 Hemodialysis patient ([facility]) ([facility]) HTN (hypertension) 12/01/2022 Hypertension IgA nephropathy [...] 10/09/2024 Performed by Bob Watson MD at [facility] Cardiac Cath/EP Lab CARDIAC CATHETERIZATION Bilateral 11/01/2024 Performed by Bob Watson MD at [facility] Cardiac Cath/EP Lab CARDIAC CATHETERIZATION N/A 11/01/2024 Performed by Bob Watson MD at [facility] Cardiac Cath/EP Lab COLONOSCOPY N/A 01/24/2025 Performed by Chadd Davis MD at [facility] ENDOSCOPY FISTULAGRAM (HISTORICAL) Left 09/15/2021 LEFT UPPER ARM HX AV FISTULA CREATION IR EMBOLIZATION 10/14/2024 IR EMBOLIZATION 10/14/2024 [facility] SPECIAL PROCEDURES IR FISTULAGRAM 08/07/2022 IR FISTULAGRAM [...] 0 min Stress: Stress Concern Present (02/21/2025) [employer] - Occupational Stress Questionnaire Feeling of Stress : To some extent Social Connections: Unknown (02/21/2025) Social Connection and Isolation Panel [NHANES] Frequency of Communication with Friends and Family: More than three times a week Frequency of Social Gatherings with Friends and Family: Patient declined Attends Faith Services: Patient declined Active Member of Clubs [...] minutes (including chart/data review/analysis, care coordination, and [id number] encounter), and was spent discussing/counseling the patient/family [...] & Acute Care Surgery Department of Surgery [facility] Pager: [phone] ~~~~~~~~~~~~~~~~~~~~~~~~~~~~~~~~ ~~~~~~~~~~~~~~~~~~~~~~~~~~~~~ This note may have been dictated using [employer] Medical Practice Edition 2.6 and/or [employer] Voice Recognition Feature. The document was proofread; however, unrecognized voice recognition class a regional truck driver errors may be present. [1] Patient Active Problem List Diagnosis Anemia Paroxysmal A-fib ([facility]) ([facility]) HTN (hypertension) ESRD on hemodialysis ([facility]) ([facility]) 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 Diverticulosis Nonrheumatic aortic valve stenosis Calcification of abdominal aorta ([facility]) Missed vaccination due to patient refusal Tobacco abuse Alcohol use disorder in remission Atrial flutter, unspecified type ([facility]) RSV (acute bronchiolitis due to respiratory syncytial virus) Aortic stenosis Upper GI bleed S/P AVR Acute hypoxic respiratory failure ([facility]) Acute encephalopathy Pneumoperitoneum Gastric ulceration Severe malnutrition ([facility]) ([facility]) Pleural effusion Peritonitis due to fungus ([facility]) History of abdominal surgery Leg DVT (deep venous thromboembolism), acute, left ([facility]) 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, 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 of skin ([facility]) 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[facility]) Leukocytosis Decubitus ulcer of sacral region, unstageable ([facility]) Pneumonia of both lungs due to methicillin susceptible Staphylococcus aureus (MSSA) ([facility]) Sacral osteomyelitis ([facility]) ([facility]) Acute respiratory failure with hypoxia ([facility]) [J96.01] Tracheostomy care ([facility]) [Z43.0] 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[facility]) [facility] (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 Complication of tracheostomy ([facility]) ([facility]) BRBPR (bright red blood per rectum) Hemoptysis Associated Order(s): IP CONSULT TO INFECTIOUS DISEASES Images from the original note were not included. [facility] - Infectious Diseases Attending Consult Note [...] bilateral pleural effusions. 5. Cholelithiasis, and [place] kidneys. Past Medical History: Medical History[1] Past [...] 0 min Stress: Stress Concern Present (02/21/2025) [employer] - Occupational Stress Questionnaire Feeling of Stress : To some extent Social Connections: Unknown (02/21/2025) Social Connection and Isolation Panel [NHANES] Frequency of Communication with Friends and Family: More than three times a week Frequency of Social Gatherings with Friends and Family: Patient declined Attends Faith Services: Patient declined Active Member of Clubs [...] -- -- -- -- -- -- 5' 10" (1.778 m) -- 02/21/25 1400 -- -- [...] History: Diagnosis Date Acute renal failure (ARF) ([facility]) 10/19/2019 Anemia 12/30/2021 Calcification of abdominal aorta ([facility]) 10/08/202309/[address] abd Diverticulosis 10/08/2023 ESRD on hemodialysis ([facility]) ([facility]) 10/26/2019 Hemodialysis patient ([facility]) ([facility]) HTN (hypertension) 12/01/2022 Hypertension IgA nephropathy 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 10/26/2019 Missed vaccination due to patient refusal 10/08/2023 Has a number of non-scientific based beliefs which interfere with his understanding and acceptance of the medical benefit of vaccination. Nonrheumatic aortic valve stenosis 10/08/2023 Paroxysmal A-fib ([facility]) ([facility]) 08/18/2023 Tobacco abuse 10/08/2023 [2] Past Surgical History: Procedure Laterality Date APPENDECTOMY CARDIAC CATHETERIZATION N/A 10/09/2024 Performed by Bob Watson MD at [facility] Cardiac Cath/EP Lab CARDIAC CATHETERIZATION Bilateral 11/01/2024 Performed by Bob Watson MD at [facility] Cardiac Cath/EP Lab CARDIAC CATHETERIZATION N/A 11/01/2024 Performed by Bob Watson MD at [facility] Cardiac Cath/EP Lab COLONOSCOPY N/A 01/24/2025 Performed by Chadd Davis MD at [facility] ENDOSCOPY FISTULAGRAM (HISTORICAL) Left 09/15/2021 LEFT UPPER ARM HX AV FISTULA CREATION IR EMBOLIZATION 10/14/2024 IR EMBOLIZATION 10/14/2024 [facility] SPECIAL PROCEDURES IR FISTULAGRAM 08/07/2022 IR FISTULAGRAM 08/07/2022 [facility] IR IMAGING TONSILLECTOMY (HISTORICAL) [3] Current Facility-Administered [...] as of this encounter: 1.778 m (5' 10"). Weight as of this encounter: 61.1 kg [...] 9:31 AM Jolie Uribe RPh (available on [employer]) Associated Order(s): INPATIENT CONSULT TO WOUND CARE PROVIDERS Images from the original note were not included. [facility] Wound Care/NPWT Progress Note Jun Snyder AGE: [...] F) Resp 20 Ht 1.778 m (5' 10") Wt 61.1 kg (134 lb 11.2 oz) [...] for pain with PO pain medication, per direct care staffer, prior to wound VAC dressing change. Wet [...] (H) 02/22/2025 Prealbumin: No results found for: "PREALBUMIN" Albumin:No components found for: LABALBU Sed Rate:No results found for: SEDRATE Micro: No components found for: BC Assessment/Plan: Nursing staff to perform dressing change: Left toes 1-5: Arterial Ulcer (Unknown) -cleanse with NS, apply Betadine and allow to dry, leave FELT COVERER daily and PRN Left plantar heel - unstageable pressure injury (POA): -cleanse with NS, apply Betadine and allow to dry, leave TISHA daily and PRN Right wrist Abrasion: -cleanse with antibacterial soap/water, leave FELT COVERER daily Sacral Stage 4 pressure injury (POA): [...] to follow Recommend to follow up at [facility] wound care center after hospital discharge. Any questions or concerns please secure chat "ACH wound/ostomy". Thank you for the consult! I personally [...] History: Diagnosis Date Acute renal failure (ARF) ([facility]) 10/19/2019 Anemia 12/30/2021 Calcification of abdominal aorta ([facility]) 10/08/202309/[address] abd Diverticulosis 10/08/2023 ESRD on hemodialysis ([facility]) ([facility]) 10/26/2019 Hemodialysis patient ([facility]) ([facility]) HTN (hypertension) 12/01/2022 Hypertension IgA nephropathy 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 10/26/2019 Missed vaccination due to patient refusal 10/08/2023 Has a number of non-scientific based beliefs which interfere with his understanding and acceptance of the medical benefit of vaccination. Nonrheumatic aortic valve stenosis 10/08/2023 Paroxysmal A-fib ([facility]) ([facility]) 08/18/2023 Tobacco abuse 10/08/2023 [2] Past Surgical History: Procedure Laterality Date APPENDECTOMY CARDIAC CATHETERIZATION N/A 10/09/2024 Performed by Bob Watson MD at [facility] Cardiac Cath/EP Lab CARDIAC CATHETERIZATION Bilateral 11/01/2024 Performed by Bob Watson MD at [facility] Cardiac Cath/EP Lab CARDIAC CATHETERIZATION N/A 11/01/2024 Performed by Bob Watson MD at [facility] Cardiac Cath/EP Lab COLONOSCOPY N/A 01/24/2025 Performed by Chadd Davis MD at [facility] ENDOSCOPY FISTULAGRAM (HISTORICAL) Left 09/15/2021 LEFT UPPER ARM HX AV FISTULA CREATION IR EMBOLIZATION 10/14/2024 IR EMBOLIZATION 10/14/2024 [facility] SPECIAL PROCEDURES IR FISTULAGRAM 08/07/2022 IR FISTULAGRAM [...] needed (PRN constipation). [DISCONTINUED] epoetin rowan-epbx (Retacrit) 06696 UNIT/ML injection Inject 0.79 mL (7,900 Units) [...] & deltoids) Fluid Accumulation: Unable to assess Sales And Leasing Agent Strength: Not Performed Nutrition Assessment: 59yo male admitted from [facility] 02/20 due to coughing up blood during [...] from NPO to Regular this morning. At [facility] diet was Potassium Restricted/Mech Soft/Thin + Prostat [...] Total Energy Requirements (kcals/day): 30-35 kcal/kg = 3606-4969 kcal Weight Used for Protein Requirements: Current [...] Ordered Anthropometric Measures: Height: 177.8 cm (5' 10") Current Body Weight: 61.1 kg (134 lb 11.2 oz) Weight Source: Bed Scale Usual Body Weight: 93.4 kg (206 lb) (08/28/24) % Weight Change (Calculated): -34.6 [place] Body Weight (lbs) (Calculated): 166 lbs [place] Body Weight (Kg) (Calculated): 75 kg % [place] Body Weight (Calculated): 81.1 % BMI (kg/m2) [...] soon to determine Jade Rodriguez RD Contact: [employer] chat or [phone] Associated Order(s): INPATIENT CONSULT TO WOUND CARE PROVIDERS Images from the original note were not included. [facility] Wound Care CONSULT Note Jun Snyder AGE: [...] Discussed offloading with patient and he refused jerel santos, RN at bedside at time of discussion, [...] (97.5 F) (Temporal) Resp 16 Ht 5' 10" (1.778 m) Wt 125 lb (56.7 kg) [...] (H) 02/20/2025 Prealbumin: No results found for: "PREALBUMIN" Albumin:No components found for: LABALBU Sed Rate:No [...] to follow Recommend to follow up at [facility] wound care center after hospital discharge. Any questions or concerns please secure chat "ACH wound/ostomy". Thank you for the consult! I personally [...] History: Diagnosis Date Acute renal failure (ARF) ([facility]) 10/19/2019 Anemia 12/30/2021 Calcification of abdominal aorta ([facility]) 10/08/202309/[address] abd Diverticulosis 10/08/2023 ESRD on hemodialysis ([facility]) ([facility]) 10/26/2019 Hemodialysis patient ([facility]) ([facility]) HTN (hypertension) 12/01/2022 Hypertension IgA nephropathy 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 10/26/2019 Missed vaccination due to patient refusal 10/08/2023 Has a number of non-scientific based beliefs which interfere with his understanding and acceptance of the medical benefit of vaccination. Nonrheumatic aortic valve stenosis 10/08/2023 Paroxysmal A-fib ([facility]) ([facility]) 08/18/2023 Tobacco abuse 10/08/2023 [2] Past Surgical History: Procedure Laterality Date APPENDECTOMY CARDIAC CATHETERIZATION N/A 10/09/2024 Performed by Bob Watson MD at [facility] Cardiac Cath/EP Lab CARDIAC CATHETERIZATION Bilateral 11/01/2024 Performed by Bob Watson MD at [facility] Cardiac Cath/EP Lab CARDIAC CATHETERIZATION N/A 11/01/2024 Performed by Bob Watson MD at [facility] Cardiac Cath/EP Lab COLONOSCOPY N/A 01/24/2025 Performed by Chadd Davis MD at [facility] ENDOSCOPY FISTULAGRAM (HISTORICAL) Left 09/15/2021 LEFT UPPER ARM HX AV FISTULA CREATION IR EMBOLIZATION 10/14/2024 IR EMBOLIZATION 10/14/2024 [facility] SPECIAL PROCEDURES IR FISTULAGRAM 08/07/2022 IR FISTULAGRAM [...] needed (PRN constipation). [DISCONTINUED] epoetin rowan-epbx (Retacrit) 99343 UNIT/ML injection Inject 0.79 mL (7,900 Units) under the skin 1 (one) time per week. (Patient not taking: Reported on 02/21/2025) [DISCONTINUED] pantoprazole (ProtoNix) 40 MG injection Infuse 40 mg into a venous catheter 2 times daily. Cosigned by Ahsan Gill DO at 02/26/2025 4:59 PM EDT Associated Order(s): IP CONSULT TO PULMONOLOGY Images from the original note were not included. [facility], Pulmonary Medicine [phone] PULMONARY CONSULTATION NOTE. Patient - Jun Snyder, Age - 59 y.o. - 1965 Room Number - W3-334/W3-334 A Consulting - Ramón Romano MD Primary Care Physician [id number] Date of Admission - 02/20/2025 5:41 PM [...] Dose Status acetaminophen (Tylenol) 325 MG tablet [id number] No Take 650 mg by mouth every 6 hours as needed for mild pain (1-3) or fever. Patient not taking: Reported on 02/21/2025 Historical Provider, Unknown Active Ampicillin-Sulbactam Sodium (UNASYN IV) [id number] Infuse 3 g into a venous catheter Every 24 hours. Historical ProviderMD 02/14/25 2359 B complex-vitamin C-folic acid (Nephro-Nato Rx) 1 MG tablet [id number] Take 1 tablet by mouth daily. Historical ProviderMD Active bisacodyl (Dulcolax) 5 MG EC tablet [id number] Take 5 mg by mouth Daily as needed for constipation. Do not crush, chew, or split. Historical ProviderMD Active bisacodyl (Dulcolax) 5 mg split suppository [id number] Insert 10 mg into the rectum Daily as needed (PRN constipation). Historical ProviderMD Active epoetin rowan-epbx (Retacrit) 97281 UNIT/ML injection [id number] No Inject 0.79 mL (7,900 Units) under the skin 1 (one) time per week. Patient not taking: Reported on 02/21/2025 Osiris Terrell, CERTIFIED FLEX ENDOSCOPE REPROCESSOR - [employer] Unknown Active ipratropium-albuterol (Duo-Neb) 0.5-2.5 mg/3 mL nebulizer solution [id number] Yes Take 3 mL by nebulization every 8 hours. DENIA Girard CNP Past Week Active Lidocaine 4 % patch [id number] Apply 1 patch topically daily. DENIA Girard CNP Active magnesium hydroxide (Milk of Magnesia) 800 MG/5ML suspension [id number] Take 30 mL by mouth Daily as needed for constipation (if no bm in 3 days). Historical Provider, Active melatonin 5 MG tablet [id number] 1 tablet (5 mg) by Per G Tube route Nightly as needed (insomnia). DENIA Girard CNP Active metoprolol tartrate (Lopressor) 25 MG tablet [id number] 1 tablet (25 mg) by Per G Tube route 2 times daily. DENIA Girard CNP Active midodrine (Proamatine) 5 MG tablet [id number] 3 tablets (15 mg) by Per G Tube route every 6 hours. DENIA Girard CNP 02/14/25 235 naloxone in sodium chloride (PF) injection injection [id number] Inject 0.04 mg into the shoulder, thigh, or buttocks as needed for opioid reversal or respiratory depression. Historical Provider, Active oxyCODONE (Roxicodone) 5 MG immediate release tablet [id number] Take 1 tablet (5 mg) by mouth every 6 hours as needed for moderate pain (4-6) for up to 5 days. Barb Dawkins MD 02/14/25 235 pantoprazole (ProtoNix) 40 MG injection [id number] Infuse 40 mg into a venous catheter 2 times daily. DENIA Girard CNP Active QUEtiapine (SEROquel) 25 MG tablet [id number] 1 tablet (25 mg) by Per G Tube route Nightly. DENIA Girard CNP 02/14/25 235 sevelamer (Renagel) 800 MG tablet [id number] Take 800 mg by mouth 3 times daily (with meals). Swallow tablet whole; do not crush, break, or chew. Give with meals for CKD/dialysis Historical Provider, Active warfarin (Coumadin) 1 MG tablet [id number] Yes Take as directed per After Visit Summary. Osiris GutierrezRomulo Terrell, CERTIFIED FLEX ENDOSCOPE REPROCESSOR - [place] 02/19/2025 Active Social History Social History Tobacco [...] time. LABS and Studies: CBC: Recent Labs 02/20/25 1825 02/21/25 0053 WBC 9.4 7.0 HGB 8.7* [...] 120 LACTATE: No lab exists for component: "LACTA" PROCALCITONIN: Recent Labs 02/21/2552 PROCAL 0.68* TROPONIN: No results for input(s): "TROPONINI" in the last 72 hours. BNP: No results for input(s): "BNP" in the last 72 hours. INR: Recent Labs 02/20/251824 INR 1.4* BLOOD GAS: No results for input(s): "PH", "PCO2", "PO2", "HCO3", "O2SAT" in the last 72 hours. Cultures: Blood [...] 11/14/2024 Strep Ag: No results for input(s): "STREPPNEUMO" in the last 72 hours. No lab [...] 10/09/2024 Performed by Bob Watson MD at [facility] Cardiac Cath/EP Lab CARDIAC CATHETERIZATION Bilateral 11/01/2024 Performed by Bob Watson MD at [facility] Cardiac Cath/EP Lab CARDIAC CATHETERIZATION N/A 11/01/2024 [facility] [facility] Cardiac Cath/EP Lab COLONOSCOPY N/A 01/24/2025 Performed by Chadd Davis MD at [facility] ENDOSCOPY FISTULAGRAM (HISTORICAL) Left 09/15/2021 LEFT UPPER ARM HX AV FISTULA CREATION IR EMBOLIZATION 10/14/2024 IR EMBOLIZATION 10/14/2024 [facility] SPECIAL PROCEDURES IR FISTULAGRAM 08/07/2022 IR FISTULAGRAM [...] PM EDT I have personally performed a lsci-vb-puza diagnostic evaluation on this patient on date of service 02/21/2025. History, labs, imaging studies, and electronic medical record have been reviewed by me. This note documented by the [x]housekeeping lead []ARMIN reflects my history, exam, and medical [...] RA Associated Order(s): IP CONSULT TO NEPHROLOGY [facility] [address] [place], [place] [id number] Consult Note Patient's Name: Jun Snyder 10:29 [...] (Temporal) Resp 16 Ht 1.778 m (5' 10") Wt 56.7 kg (125 lb) SpO2 93% [...] pulses, no calf tenderness. Labs: Recent Labs 02/20/25 1825 02/21/25 0053 WBC 9.4 7.0 HGB 8.7* 8.3* HCT 26.8* 25.7* MCV 88.4 89.9 PLT 312 316 Recent Labs 02/20/25 1825 02/21/25 0053 NA 133* 131* K 3.1* 3.1* CL 92* 91* CO2 29 28 GLUCOSE 80 74 PHOS -- 2.0* MG -- 2.2 BUN 29* 29* CREATININE 2.57* 2.89* Ionized Calcium: No components found for: "IONCA" Magnesium: Lab Results Component Value Date MG [...] bilateral pleural effusions. 5. Cholelithiasis, and diminutive [place] kidneys. Assessment and Plan: 59 y.o. male [...] any questions or concerns Bree Molina APRN SALVAGER A-G LAST CODE STRIPER [facility] [phone] Pt seen and examined independently by me. I reviewed with DENIA-SALVAGER the medical history and the findings on physical examination. I discussed the patient s diagnosis and concur with the treatment plan as documented in his note. Please call [phone] or message me through [employer] with any questions or concerns. [1] Past Medical History: Diagnosis Date Acute renal failure (ARF) ([facility]) 10/19/2019 Anemia 12/30/2021 Calcification of abdominal aorta (HCC) 10/08/202309/[address] abd Diverticulosis 10/08/2023 ESRD on hemodialysis ([facility]) ([facility]) 10/26/2019 Hemodialysis patient ([facility]) ([facility]) HTN (hypertension) 12/01/2022 Hypertension IgA nephropathy [...] 10/09/2024 Performed by Bob Watson MD at [facility] Cardiac Cath/EP Lab CARDIAC CATHETERIZATION Bilateral 11/01/2024 Performed by Bob Watson MD at [facility] Cardiac Cath/EP Lab CARDIAC CATHETERIZATION N/A 11/01/2024 Performed by Bob Watson MD at [facility] Cardiac Cath/EP Lab COLONOSCOPY N/A 01/24/2025 Performed by Chadd Davis MD at [facility] ENDOSCOPY FISTULAGRAM (HISTORICAL) Left 09/15/2021 LEFT UPPER ARM HX AV FISTULA CREATION IR EMBOLIZATION 10/14/2024 IR EMBOLIZATION 10/14/2024 [facility] SPECIAL PROCEDURES IR FISTULAGRAM 08/07/2022 IR FISTULAGRAM 08/07/2022 [facility] IR IMAGING TONSILLECTOMY (HISTORICAL) [3] Family History Problem Relation Name Age of Onset No Known Problems Mother No Known Problems Father documented in this encounter [facility] 02-23-2025 Telephone encount er Note Antonio, can we please schedule a 6-week CT scan for this patient and a follow-up appointment after this? Thank you [facility] 02-22-2025 Hospital Discharg e steven Hurtado [...] 10/09/2024 Performed by Bob Watson MD at [facility] Cardiac Cath/EP Lab CARDIAC CATHETERIZATION Bilateral 11/01/2024 Performed by Bob Watson MD at [facility] Cardiac Cath/EP Lab CARDIAC CATHETERIZATION N/A 11/01/2024 Performed by Bob Watson MD at [facility] Cardiac Cath/EP Lab COLONOSCOPY N/A 01/24/2025 Performed by Chadd Davis MD at [facility] ENDOSCOPY FISTULAGRAM (HISTORICAL) Left 09/15/2021 LEFT UPPER ARM HX AV FISTULA CREATION IR EMBOLIZATION 10/14/2024 IR EMBOLIZATION 10/14/2024 [facility] SPECIAL PROCEDURES IR FISTULAGRAM 08/07/2022 IR FISTULAGRAM 08/07/2022 [facility] IR IMAGING TONSILLECTOMY (HISTORICAL) Immunization History: [...] failure with hypoxia (HCC) [J96.01] Tracheostomy care ([facility]) [Z43.0] 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HCC) [facility] (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 Complication of tracheostomy (CMS/HCC) (HCC) Anemia Aortic stenosis Upper GI bleed S/P AVR Acute hypoxic respiratory failure (HCC) Acute encephalopathy Pneumoperitoneum BRBPR (bright red blood per rectum) Isolation/Infection: No active isolations No active infections Nurse Assessment: Last Vital Signs: BP 142/87 Pulse 85 Temp 36.3 C (97.4 F) Resp 20 Ht 1.778 m (5' 10") Wt 61.1 kg (134 lb 11.2 oz) [...] Minimal assistance Toileting Minimal assistance Feeding Independent Rivet 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 Minimal assistance Med Delivery yes Wound Care Documentation and Therapy: Wound/Incision 11/13/24 Pressure Injury Sacrum (Active) Site Assessment Unable to assess;Other (Comment) 02/21/25 0512 Odor None 02/21/25 05 Drainage Amount Other (Comment) 02/21/25 0512 Treatments Other (Comment) 02/21/25 0512 Primary Dressing Vacuum dressing 02/21/25 05 Dressing [...] Name: Annia Ruano Address: [address] , [place] [address] Dialysis Facility (if applicable) Name: Address: Dialysis Schedule: Phone: Fax: Clerical Associate/Extension Work Director signature: ICIAN SECTION Name: Jun Snyder Prognosis: excellent Condition at Discharge: stable Rehab Potential (if transferring to Rehab): excellent Recommended Labs or Other Treatments After Discharge: BMP/CBC/INR within 1 day. Follow up with PCP within 1 week to review all medications and findings of this admission. Coumadin dosing Date INR Dose 6/9 - 1.8 - 7.5mg 6/8 - 1.5 - 7.5 mg 6/7 - 1.6 - 6 mg 6/6 - 1.4 - 5mg 6/5 - 1.4 - 4mg 6/4 - 1.3 - 3mg 6/3 - 1.3 - 2mg 6/2 - 1.3 - 1.5mg 6/1 - 1.3 - 1 mg 02/24 - 1.3 - 1 mg The individual is being admitted to a nursing facility directly from an [facility] or a unit of a community health systems that is not operated by or licensed by [facility] under section 5119.14 or 5160-3-15.1 5 The individual requires the level of services provided by a nursing facility for the condition for which he or she was treated in the hospital and, Physician Certification: I certify the above information and transfer of Jun Snyder is necessary for the continuing treatment of the diagnosis listed and that he requires fci facility for less than 30 days. Update [...] - 1 mg documented in this encounter [facility] 02-21-2025 Telephone encount er Note Name of caller: Padmini Contact phone number: [phone] Relationship to Patient: [facility] Provider: Mariano Practice: Infectious Disease Chief Complaint/Reason for Call: [facility] need a routine consult for this patient for Hemoptysis Cavitary lung lesion. Please advise Padmini Best time of day caller can be reached: any Patient advised that office/PCP has 24-48 business hours to return their call: Yes [facility] 02-21-2025 Miscellaneous Notes Formattin g of this note might be different from the original. Name of caller: Padmini Contact phone number: [phone] Relationship to Patient: [facility] Provider: Mariano Practice: Infectious Disease Chief Complaint/Reason for Call: [facility] need a routine consult for this patient for Hemoptysis Cavitary lung lesion. Please advise Padmini Best time of day caller can be reached: any Patient advised that office/PCP has 24-48 business hours to return their call: Yes documented in this encounter [facility] 02-21-2025 Note Referral placed to [facility] [place] [facility] via [facility] per TCC request. Await review and response regarding ability to accept. TCC notified. Electronically signed by NELSON Rodrigues [facility] 02-20-2025 History and physical note Attending [...] bilateral pleural effusions. 5. Cholelithiasis, and dimin[place] kidneys. Past Medical History: Past Medical History: Diagnosis Date Acute renal failure (ARF) ([facility]) 10/19/2019 Anemia 12/30/2021 Calcification of abdominal aorta ([facility]) 10/08/202309/[address] abd Diverticulosis 10/08/2023 ESRD on hemodialysis ([facility]) ([facility]) 10/26/2019 Hemodialysis patient ([facility]) ([facility]) HTN (hypertension) 12/01/2022 Hypertension IgA nephropathy 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 10/26/2019 Missed vaccination due to patient refusal 10/08/2023 Has a number of non-scientific based beliefs which interfere with his understanding and acceptance of the medical benefit of vaccination. Nonrheumatic aortic valve stenosis 10/08/2023 Paroxysmal A-fib ([facility]) ([facility]) 08/18/2023 Tobacco abuse 10/08/2023 Past Surgical [...] Needs: No Transportation Needs (01/18/2025) Received from [facility] Transportation Source Has lack of transportation kept you from medical appointments or from getting medications?: No Has lack of transportation kept you from meetings, work, or from getting things needed for daily living?: No Physical Activity: Not on file Stress: No Stress Concern Present (01/18/2025) Received from [facility] Roundup of Occupational Health - Occupational Stress Questionnaire Feeling of Stress : Not at all Social Connections: Patient Unable To Answer (12/01/2024) Received from [facility] Social Connection and Isolation Panel [NHANES] Frequency of Communication with Friends and Family: Patient unable to answer Frequency of Social Gatherings with Friends and Family: Patient unable to answer Attends Faith Services: Patient unable to answer Active Member of Clubs or Organizations: Patient unable to answer Attends Club or Organization Meetings: Patient unable to answer Marital Status: Patient unable to answer Intimate Partner Violence: Patient Unable To Answer (11/28/2024) Received from [facility] Domestic Abuse Assessment Do you feel safe in your relationships at home?: Unable to assess Physical Abuse: Unable to assess [facility] Domestic Abuse - Type of Abuse: Not on file [facility] Domestic Abuse - Time Frame: Not on file [facility] Domestic Abuse - Signs and Symptoms: Not on file Verbal Abuse: Unable to assess [facility] Domestic Abuse - Reported To: Not on file Housing Stability: Patient Unable To Answer (12/01/2024) Received from [facility] Housing Stability Vital Sign Unable to [...] (97.9 F) (Oral) Resp 18 Ht 5' 10" (1.778 m) Wt 125 lb (56.7 kg) [...] ANIONGAP 12 LIVER PROFILE:No results for input(s): "AST", "ALT", "BILITOT", "ALKPHOS", "PROT" in the last 72 hours. No lab exists for component: LABALBU PT/INR: Recent Labs 02/20/25 1825 PROTIME 14.7* INR 1.4* CARDIAC ENZYMES: No results for input(s): "TROPONINI" in the last 72 hours. Procalcitonin: No results found for: "PROCAL" Urine Culture: No results found for this or any previous visit. COVID-19 PCR: No results for input(s): "COVID19" in the last 72 hours. I reviewed: [...] MD Division of Hospital Medicine Inpatient Medical Services/[facility] [1] Past Surgical History: Procedure Laterality Date APPENDECTOMY CARDIAC CATHETERIZATION N/A 10/09/2024 Performed by Bob Watson MD at [facility] Cardiac Cath/EP Lab CARDIAC CATHETERIZATION Bilateral 11/01/2024 Performed by Bob Watson MD at [facility] Cardiac Cath/EP Lab CARDIAC CATHETERIZATION N/A 11/01/2024 Performed by Bob Watson MD at [facility] Cardiac Cath/EP Lab COLONOSCOPY N/A 01/24/2025 Performed by Chadd Davis MD at [facility] ENDOSCOPY FISTULAGRAM (HISTORICAL) Left 09/15/2021 LEFT UPPER ARM HX AV FISTULA CREATION IR EMBOLIZATION 10/14/2024 IR EMBOLIZATION 10/14/2024 [facility] SPECIAL PROCEDURES IR FISTULAGRAM 08/07/2022 IR FISTULAGRAM 08/07/2022 [facility] IR IMAGING TONSILLECTOMY (HISTORICAL) [2] Family History Problem Relation Name Age of Onset No Known Problems Mother No Known Problems Father [3] Allergies Allergen Reactions Lisinopril Swelling and Angioedema documented in this encounter [facility] 02-20-2025 Note [facility] 02-20-2025 Emergency department Note Called report to 3W nurse who will be taking over pt care. Attempted to reposition pt and have him sit up but pt states he feels fine and does not want to sit up"despite coughing up blood. Pt placed on 2L [...] placed. Wound is being cared for by [facility] facility where he resides EMERGENCY DEPARTMENT ENCOUNTER [...] was bright red and it stopped just SKETCHER when in transport. HISTORY OF PRESENT ILLNESS [...] CURRENT MEDICATIONS Previous Medications EPOETIN ROWAN-EPBX (RETACRIT) 77193 UNIT/ML INJECTION Inject 0.79 mL (7,900 Units) [...] bilateral pleural effusions. 5. Cholelithiasis, and [place] kidneys. Report Dictated on Electronically Signed By: [...] kg (125 lb) Height: 1.778 m (5' 10") ED Course as of 02/20/252046February 20, 20251952 [...] of hemoptysis, he will be admitted at [facility] under the hospitalist service in case he were to decompensate and require intervention with IR or CT surgery. CRITICAL CARE TIME CONSULTS: None PROCEDURES: Unless otherwise noted below, none Procedures Patients symptoms are consistent with sepsis, severe sepsis, or septic shock (If yes use ".sepsiscoremeasure"): FINAL IMPRESSION 1. Hemoptysis DISPOSITION Admit 02/20/2025 [...] History: Diagnosis Date Acute renal failure (ARF) ([facility]) 10/19/2019 Anemia 12/30/2021 Calcification of abdominal aorta ([facility]) 10/08/202309/[address] abd Diverticulosis 10/08/2023 ESRD on hemodialysis ([facility]) ([facility]) 10/26/2019 Hemodialysis patient ([facility]) ([facility]) HTN (hypertension) 12/01/2022 Hypertension IgA nephropathy [...] 10/09/2024 Performed by Bob Watson MD at [facility] Cardiac Cath/EP Lab CARDIAC CATHETERIZATION Bilateral 11/01/2024 Performed by Bob Watson MD at [facility] Cardiac Cath/EP Lab CARDIAC CATHETERIZATION N/A 11/01/2024 Performed by Bob Watson MD at [facility] Cardiac Cath/EP Lab COLONOSCOPY N/A 01/24/2025 Performed by Chadd Davis MD at [facility] ENDOSCOPY FISTULAGRAM (HISTORICAL) Left 09/15/2021 LEFT UPPER ARM HX AV FISTULA CREATION IR EMBOLIZATION 10/14/2024 IR EMBOLIZATION 10/14/2024 [facility] SPECIAL PROCEDURES IR FISTULAGRAM 08/07/2022 IR FISTULAGRAM [...] Patient Unable To Answer (12/01/2024) Received from [facility] Overall Financial Resource Strain (CARDIA) Difficulty of Paying Living Expenses: Patient unable to answer Food Insecurity: Patient Unable To Answer (12/01/2024) Received from [facility] Hunger Vital Sign Worried About Running Out of Food in the Last Year: Patient unable to answer Ran Out of Food in the Last Year: Patient unable to answer Transportation Needs: No Transportation Needs (01/18/2025) Received from [facility] Transportation Source Has lack of transportation kept you from medical appointments or from getting medications?: No Has lack of transportation kept you from meetings, work, or from getting things needed for daily living?: No Stress: No Stress Concern Present (01/18/2025) Received from [facility] Roundup of Occupational Health - Occupational Stress Questionnaire Feeling of Stress : Not at all Social Connections: Patient Unable To Answer (12/01/2024) Received from [facility] Social Connection and Isolation Panel [NHANES] Frequency of Communication with Friends and Family: Patient unable to answer Frequency of Social Gatherings with Friends and Family: Patient unable to answer Attends Faith Services: Patient unable to answer Active Member [...] Patient Unable To Answer (12/01/2024) Received from [facility] Housing Stability Vital Sign Unable to [...] was bright red and it stopped just SKETCHER when in transport. documented in this encounter [facility] 02-14-2025 History of Presen t illness Narrative Images from the original note were not included. [facility] Group Infectious Diseases Advanced Practice Provider Outpatient Progress Note HISTORYOF PRESENT ILLNESS 59 yo male with PMHx significant for ESRD on HD via AVF, HTN, PAD who was admitted at [facility] (10/03/24-11/28/24) where he underwent AVR (10/12/24). Post-op [...] Pip-Tazo and Anidulafungin. Patient was discharged to [facility] on 11/28/24 where he was followed by our ID group for recurrent MSSA LRTI. He additionally had a sacral wound that was debrided to bone 01/02/25 (Sacral wound Cx + E faecalis, Clostridium clostridioforme). He was on a course of Amp-Sulbactam planned for 6 weeks through 02/13/25 and discharged to [facility] 01/18/25. Patient then presented to [facility] 01/19 after inadvertently self-dislodging tracheostomy. He was transferred to [facility] ICU for airway management and to determine if replacement tracheostomy was needed; decision was made to leave tracheostomy out. He was transferred to [facility] same day. 01/20 GI and critical care were consulted dt rectal bleeding. He was transferred back to ICU and had an EGD that showed non-bleeding duodenal ulcer. At that time sacral wound was also noted to be bleeding. Wound vac was applied. He continued on course of Amp-Sulbactam as planned through 02/13/25 and had tunneled line placed. Patient was discharged to [facility] 02/01/25. Patient presents today for EOT follow [...] Patient Unable To Answer (12/01/2024) Received from [facility] Overall Financial Resource Strain (CARDIA) Difficulty of Paying Living Expenses: Patient unable to answer Food Insecurity: Patient Unable To Answer (12/01/2024) Received from [facility] Hunger Vital Sign Worried About Running Out of Food in the Last Year: Patient unable to answer Ran Out of Food in the Last Year: Patient unable to answer Transportation Needs: No Transportation Needs (01/18/2025) Received from [facility] Transportation Source Has lack of transportation kept you from medical appointments or from getting medications?: No Has lack of transportation kept you from meetings, work, or from getting things needed for daily living?: No Physical Activity: Not on file Stress: No Stress Concern Present (01/18/2025) Received from [facility] Roundup of Occupational Health - Occupational Stress Questionnaire Feeling of Stress : Not at all Social Connections: Patient Unable To Answer (12/01/2024) Received from [facility] Social Connection and Isolation Panel [NHANES] Frequency of Communication with Friends and Family: Patient unable to answer Frequency of Social Gatherings with Friends and Family: Patient unable to answer Attends Faith Services: Patient unable to answer Active Member of Clubs or Organizations: Patient unable to answer Attends Club or Organization Meetings: Patient unable to answer Marital Status: Patient unable to answer Intimate Partner Violence: Patient Unable To Answer (11/28/2024) Received from [facility] Domestic Abuse Assessment Do you feel safe in your relationships at home?: Unable to assess Physical Abuse: Unable to assess [facility] Domestic Abuse - Type of Abuse: Not on file [facility] Domestic Abuse - Time Frame: Not on file [facility] Domestic Abuse - Signs and Symptoms: Not on file Verbal Abuse: Unable to assess [facility] Domestic Abuse - Reported To: Not on file Housing Stability: Patient Unable To Answer (12/01/2024) Received from [facility] Housing Stability Vital Sign Unable to [...] kg (130 lb) Height: 1.778 m (5' 10") Wt Readings from Last 3 Encounters: 02/14/25 [...] neg 01/22 Acinetobacter baumannii PCR: neg Previous ([facility]) 01/02- sacral wound cx- E faecalis [...] accounting for open encounter. Mikala MORAN PA-C [facility] Infectious Disease [1] Past Medical History: Diagnosis Date Acute renal failure (ARF) ([facility]) 10/19/2019 Anemia 12/30/2021 Calcification of abdominal aorta ([facility]) 10/08/202309/[address] abd Diverticulosis 10/08/2023 ESRD on hemodialysis ([facility]) ([facility]) 10/26/2019 Hemodialysis patient ([facility]) ([facility]) HTN (hypertension) 12/01/2022 Hypertension IgA nephropathy 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 10/26/2019 Missed vaccination due to patient refusal 10/08/2023 Has a number of non-scientific based beliefs which interfere with his understanding and acceptance of the medical benefit of vaccination. Nonrheumatic aortic valve stenosis 10/08/2023 Paroxysmal A-fib ([facility]) ([facility]) 08/18/2023 Tobacco abuse 10/08/2023 [2] Family History Problem Relation Name Age of Onset No Known Problems Mother No Known Problems Father documented in this encounter [facility] 02-02-2025 History of Presen t illness Narrative Images from the original note were not included. Pt discharged to [facility] on 02/01/25. Updated tracker with hospital doses. Warfarin dosing instructions: 0.5 mg per day. New interacting meds: N/a Next SAILAJA appt: post SNF documented in this encounter [facility] 02-02-2025 History of Presen t illness Narrative Images from the original note were not included. Pt discharged to [facility] on 02/01/25. Updated tracker with hospital doses. Warfarin dosing instructions: 0.5 mg per day. New interacting meds: N/a Next SAILAJA appt: post SNF Patient is still at [facility] ([phone]). I left a message for ELIA Anderson, regarding discharge plans. documented in this encounter [facility] 02-02-2025 History of Presen t illness Narrative Images from the original note were not included. Pt discharged to [facility] on 02/01/25. Updated tracker with hospital doses. Warfarin dosing instructions: 0.5 mg per day. New interacting meds: N/a Next SAILAJA appt: post SNF Patient is still at [facility] ([phone]). I left a message for ELIA Anderson, [...] readmitted on 02/20 [address] back [address] [facility] on 03/05. documented in this encounter [facility] 02-01-2025 Nurse Note Transport here to take patient to [facility]. Wound Vac tubing clamped and disconnected from wound vac. Facility will determine if tubing is compatible with their wound vacs. Wound Vac Dressing leaking with foam falling out. Dressing removed and W-D drsg applied. Patient Name: Jun Snyder Patient : 1965 Acct: [id number] Date of Admission: 01/19/2025 [facility]: [facility] A Code Status: Full Code Allergies: Allergies Allergen Reactions Lisinopril Swelling and Angioedema Diagnosis: Patient Active Problem List Diagnosis Anemia Paroxysmal A-fib ([facility]) ([facility]) HTN (hypertension) ESRD on hemodialysis ([facility]) ([facility]) 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 Diverticulosis Nonrheumatic aortic valve stenosis Calcification of abdominal aorta ([facility]) Missed vaccination due to patient refusal Tobacco abuse Alcohol use disorder in remission Atrial flutter, unspecified type ([facility]) RSV (acute bronchiolitis due to respiratory syncytial virus) Aortic stenosis Upper GI bleed S/P AVR Acute hypoxic respiratory failure ([facility]) Acute encephalopathy Pneumoperitoneum Gastric ulceration Severe malnutrition ([facility]) ([facility]) Pleural effusion Peritonitis due to fungus ([facility]) History of abdominal surgery Leg DVT (deep venous thromboembolism), acute, left ([facility]) 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, 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 of skin ([facility]) 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[facility]) Leukocytosis Decubitus ulcer of sacral region, unstageable ([facility]) Pneumonia of both lungs due to methicillin susceptible Staphylococcus aureus (MSSA) ([facility]) Sacral osteomyelitis ([facility]) ([facility]) Acute respiratory failure with hypoxia ([facility]) [J96.01] Tracheostomy care ([facility]) [Z43.0] 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) ([facility]) BRBPR (bright red blood per rectum) [...] 01/31/25 0400 -- -- -- -- Diminished Ecchymosis;Emerald;Mark Warm;Dry Flat;Gastrostomy tube Active 01/31/25 0801 Alert [...] BUN 15 01/31/2025 0010 CREATININE 3.64 (H) 01/31/20259 CREATININE 9.99 (H) 10/27/2019 0545 CALCIUM 10.0 01/31/20250 PHOS 4.6 01/31/2025 001 IV Drips and Rate/Dose sodium chloride, 20 mL/hr, Last Rate: 20 mL/hr (01/30/251837) Safety - Before each treatment: Dialysis Machine No.: [id number] RO Machine Number: [id number] Dialyzer Lot No.: [id number] Tubing Lot Number: [id number] All Connections Secure: Yes Venous Parameters Set: Yes Arterial Parameters Set: Yes NS Bag: Yes Saline Line Double Clamped: Yes Dialyzer: Nipro Prime Volume (mL): 200 mL RO Machine Number: [id number] RO Machine Log Sheet Completed: Yes Machine Alarm Self Test: Completed, Passed (722) (01/31/25742) Air Foam Detector: Tested, Proper Function, pH Reading Extracorporeal Circuit Tested for Integrity: Yes Machine Conductivity: 13.7 Manual Conductivity: 13.7 Manual Ph: 7 Bleach Test (Neg): Yes Bath Temperature: 36 C (96.8 F) Conductivity Meter Serial #: [id number] Machine Functioning Alarm Free? Yes Dialysis Bath: K+ (Potassium): 2 Ca+ (Calcium): 2.5 Na+ (Sodium): 137 HCO3 (Bicarb): 35 Bicarbonate Concentrate Lot No.: [id number] Acid Concentrate Lot No.: [id number] Chlorine Testing - Before each treatment and every 4 hours: Time On: 0811 Time Off: 1111 Treatment Goal: 2L Weight Height: 177.8 cm (5' 10") (01/30/25 1002) Weight: 53.2 kg (117 lb 4.6 oz) (01/31/25599) BMI (Calculated): 16.83 (01/31/25599) 1st check: less [...] Communication: Secure chat Response: Other (Comment) (med hold) Notification Date: 01/30/25 Notification Time: 2037 Reason for Communication: Medication concern Provider Role: Attending physician Method of Communication: Secure chat Response: Other (Comment) (med hold) Notification Time: 2037 Handoff complete and report [...] to Education: Verbalized Understanding Patient arrived from [facility], Dr. Borrero in to speak with the [...] Name: Jun Snyder Patient : 1965 Acct: [id number] Date of Admission: 01/19/2025 Room/Bed: 1C-144/1C144 A Code Status: Full Code Allergies: Allergies Allergen Reactions Lisinopril Swelling and Angioedema Diagnosis: Patient Active Problem List Diagnosis Anemia Paroxysmal A-fib ([facility]) ([facility]) HTN (hypertension) ESRD on hemodialysis ([facility]) ([facility]) IgA nephropathy determined by biopsy of kidney Diverticulosis Nonrheumatic aortic valve stenosis Calcification of abdominal aorta (HCC) Missed vaccination due to patient refusal Tobacco abuse Alcohol use disorder in remission Atrial flutter, unspecified type ([facility]) RSV (acute bronchiolitis due to respiratory syncytial virus) Aortic stenosis Upper GI bleed S/P AVR Acute hypoxic respiratory failure ([facility]) Acute encephalopathy Pneumoperitoneum Gastric ulceration Severe malnutrition ([facility]) ([facility]) Pleural effusion Peritonitis due to fungus ([facility]) History of abdominal surgery Leg DVT (deep venous thromboembolism), acute, left ([facility]) 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, 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 of skin ([facility]) 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[facility]) Leukocytosis Decubitus ulcer of sacral region, unstageable ([facility]) Pneumonia of both lungs due to methicillin susceptible Staphylococcus aureus (MSSA) ([facility]) Sacral osteomyelitis ([facility]) ([facility]) Acute respiratory failure with hypoxia ([facility]) [J96.01] Tracheostomy care ([facility]) [Z43.0] 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[facility]) [facility] (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 Complication of tracheostomy ([facility]) ([facility]) BRBPR (bright red blood per rectum) [...] 01/29/25 0800 -- -- -- -- Clear Emerald;Mark Warm;Dry Flat;Soft;Gastrostomy tube Active 01/29/25 0839 Alert (0) 3 Regular None (Room air) Clear Emerald Warm;Dry;No swelling Soft Active 01/29/25 1210 Alert (0) 3 Regular None (Room air) Clear Emerald -- -- -- Labs Lab Results Component Value Date/Time WBC 9.4 01/29/2025336 HGB 8.6 (L) 01/29/2025 033 HGB 9.4 11/11/2024 0230 HCT 27.3 (L) 01/29/2025336 PLT 271 01/29/2025 033 NA 134 (L) 01/29/2025 0337 K 3.7 01/29/2025 033 CL 94 (L) 01/29/2025 033 CO2 23 01/29/2025336 BUN 21 01/29/2025 033 CREATININE 4.17 (H) 01/29/2025 033 CREATININE 9.99 (H) 10/27/2019 0545 CALCIUM 9.8 01/29/2025336 PHOS 4.9 (H) 01/29/2025336 IV Drips and Rate/Dose sodium chloride, 20 mL/hr, Last Rate: 20 mL/hr (01/25/252003) Safety - Before each treatment: Dialysis Machine No.: [id number] Machine Number: [id number] Dialyzer Lot No.: [id number] Tubing Lot Number: [id number] All Connections Secure: Yes Venous Parameters Set: Yes Arterial Parameters Set: Yes NS Bag: Yes Saline Line Double Clamped: Yes Dialyzer: Nipro Prime Volume (mL): 200 mL RO Machine Number: [id number] RO Machine Log Sheet Completed: Yes Machine Alarm Self Test: Completed, Passed (01/29/25 07) Air Foam Detector: Tested, Proper Function, pH Reading Extracorporeal Circuit Tested for Integrity: Yes Machine Conductivity: 13.8 Manual Conductivity: 13.8 Manual Ph: 7 Bleach Test (Neg): Yes Bath Temperature: 36 C (96.8 F) Conductivity Meter Serial #: [id number] Machine Functioning Alarm Free? Yes Dialysis Bath: K+ (Potassium): 3 Ca+ (Calcium): 2.5 Na+ (Sodium): 137 HCO3 (Bicarb): 35 Bicarbonate Concentrate Lot No.: [id number] Acid Concentrate Lot No.: [id number] Chlorine Testing - Before each treatment and every 4 hours: Time On: 0847 Time Off: 1147 Treatment Goal: 2L Weight Height: 177.8 cm (5' 10") (01/24/25 1321) Weight: 53.1 kg (117 lb [...] 210 mmHg 100 600 Yes Pt stable [id number]. Pt stable , sleeping 01/29/25 1018 400 [...] Name: Jun Snyder Patient : 1965 Acct: [id number] Date of Admission: 01/19/2025 Room/Bed: T3-321/T3-321 A [...] (CMS/HCC) (HCC) Acute respiratory failure with hypoxia ([facility]) [J96.01] Tracheostomy care (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 Complication of tracheostomy [...] HCT 28.4 (L) 01/26/2025 0952 PLT 265 01/26/20258 NA 136 01/26/2025247 K 5.1 01/26/2025247 CL 100 01/26/2025247 CO2 20 (L) 01/26/2025247 BUN 19 01/26/2025247 CREATININE 3.37 (H) 01/26/2025247 CREATININE 9.99 (H) 10/27/2019 0545 CALCIUM 9.0 01/26/2025247 PHOS 5.3 (H) 01/26/2025247 IV Drips and Rate/Dose heparin, 5-30 Units/kg/hr, Last Rate: 7 Units/kg/hr (01/26/251218) sodium chloride, 20 mL/hr, Last Rate: 20 mL/hr (01/25/252003) Safety - Before each treatment: Dialysis Machine No.: [id number] RO Machine Number: [id number] Dialyzer Lot No.: [id number] Tubing Lot Number: [id number] All Connections Secure: Yes Venous Parameters Set: Yes Arterial Parameters Set: Yes NS Bag: Yes Saline Line Double Clamped: Yes Dialyzer: Nipro Prime Volume (mL): 200 mL RO Machine Number: [id number] RO Machine Log Sheet Completed: Yes Machine Alarm Self Test: Completed, Passed (1226) (01/26/25 1226) Air Foam Detector: Tested, Proper Function, pH Reading Extracorporeal Circuit Tested for Integrity: Yes Machine Conductivity: 13.9 Manual Conductivity: 14 Manual Ph: 7.4 Bleach Test (Neg): Yes Bath Temperature: 36 C (96.8 F) Conductivity Meter Serial #: [id number] Machine Functioning Alarm Free? Yes Dialysis Bath: K+ (Potassium): 2 Ca+ (Calcium): 2.5 Na+ (Sodium): 137 HCO3 (Bicarb): 35 Bicarbonate Concentrate Lot No.: [id number] Acid Concentrate Lot No.: [id number] Chlorine Testing - Before each treatment and every 4 hours: Time On: 1245 Time Off: 1215 Treatment Goal: 2L Weight Height: 177.8 cm (5' 10") (01/24/25 1321) Weight: 58.9 kg (129 lb [...] -- -- -- -- tx completed, UF [id number] Vital Signs Patient Vitals for the past [...] 105/60 -- -- 90 15 100 % 01/25/251999 92/63 36.7 C (98 F) Temporal (!) [...] Name: Jun Snyder Patient : 1965 Acct: [id number] Date of Admission: 01/19/2025 Room/Bed: T3-321/T3-321 A Code Status: Full Code Allergies: Allergies Allergen Reactions Lisinopril Swelling and Angioedema Diagnosis: Patient Active Problem List Diagnosis Anemia Paroxysmal A-fib ([facility]) ([facility]) HTN (hypertension) ESRD on hemodialysis ([facility]) ([facility]) IgA nephropathy determined by biopsy of kidney Diverticulosis Nonrheumatic aortic valve stenosis Calcification of abdominal aorta ([facility]) Missed vaccination due to patient refusal Tobacco abuse Alcohol use disorder in remission Atrial flutter, unspecified type ([facility]) RSV (acute bronchiolitis due to respiratory syncytial virus) Aortic stenosis Upper GI bleed S/P AVR Acute hypoxic respiratory failure ([facility]) Acute encephalopathy Pneumoperitoneum Gastric ulceration Severe malnutrition ([facility]) ([facility]) Pleural effusion Peritonitis due to fungus ([facility]) History of abdominal surgery Leg DVT (deep venous thromboembolism), acute, left ([facility]) 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, 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) 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[facility]) Leukocytosis Decubitus ulcer of sacral region, unstageable ([facility]) Pneumonia of both lungs due to methicillin susceptible Staphylococcus aureus (MSSA) ([facility]) Sacral osteomyelitis ([facility]) ([facility]) Acute respiratory failure with hypoxia ([facility]) [J96.01] Tracheostomy care ([facility]) [Z43.0] 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[facility]) [facility] (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 Complication of tracheostomy ([facility]) ([facility]) BRBPR (bright red blood per rectum) [...] - Before each treatment: Dialysis Machine No.: [id number] RO Machine Number: [id number] Dialyzer Lot No.: [id number] Tubing Lot Number: [id number] All Connections Secure: Yes Venous Parameters Set: Yes Arterial Parameters Set: Yes NS Bag: Yes Saline Line Double Clamped: Yes Dialyzer: Nipro Prime Volume (mL): 200 mL RO Machine Number: [id number] RO Machine Log Sheet Completed: Yes Machine Alarm Self Test: Completed, Passed (test passed at 0923) (01/24/25924) Air Foam Detector: Tested, Proper Function, pH Reading Extracorporeal Circuit Tested for Integrity: Yes Machine Conductivity: 13.8 Manual Conductivity: 13.8 Manual Ph: 7.2 Bleach Test (Neg): Yes (water check negative at 0910) Bath Temperature: 36 C (96.8 F) Conductivity Meter Serial #: [id number] Machine Functioning Alarm Free? Yes Dialysis Bath: K+ (Potassium): 3 Ca+ (Calcium): 2.5 Na+ (Sodium): 137 HCO3 (Bicarb): 35 Bicarbonate Concentrate Lot No.: [id number] Acid Concentrate Lot No.: [id number] Chlorine Testing - Before each treatment and every 4 hours: Time On: 0930 Time Off: 1215 Treatment Goal: 0-2L as tolerated MAP >65 Weight Height: 177.8 cm (5' 10") (01/19/25656) Weight: 58.9 kg (129 lb 13.6 [...] Name: Jun Snyder Patient : 1965 Acct: [id number] Date of Admission: 01/19/2025 Room/Bed: T3-321/T3-321 A [...] failure with hypoxia (HCC) [J96.01] Tracheostomy care (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) Treatment: Hemodialysis 1:1 Priority: Routine Location: [...] 4.4 01/22/2025 0419 CL 94 (L) 01/22/2025 0419 CO2 25 01/22/2025 0419 BUN 53 (H) 01/22/2025 0419 CREATININE 4.18 (H) 01/22/2025 041 CREATININE 9.99 (H) 10/27/2019 0545 CALCIUM 9.8 01/22/2025 0419 PHOS 6.8 (H) 01/22/2025 0419 IV Drips and Rate/Dose Safety - Before each treatment: Dialysis Machine No.: [id number] RO Machine Number: [id number] Dialyzer Lot No.: [id number] Tubing Lot Number: [id number] All Connections Secure: Yes Venous Parameters Set: Yes Arterial Parameters Set: Yes NS Bag: Yes Saline Line Double Clamped: Yes Dialyzer: Nipro Prime Volume (mL): 250 mL RO Machine Number: [id number] RO Machine Log Sheet Completed: Yes Machine Alarm Self Test: Completed, Passed (01/22/25850) Air Foam Detector: Tested, Proper Function, pH Reading Extracorporeal Circuit Tested for Integrity: Yes Machine Conductivity: (13.8) Manual Conductivity: 14 Manual Ph: 7.2 Bleach Test (Neg): Yes Bath Temperature: 36 C (96.8 F) Conductivity Meter Serial #: [id number] Machine Functioning Alarm Free? Yes Dialysis Bath: K+ (Potassium): 2 Ca+ (Calcium): 2.5 Na+ (Sodium): 137 HCO3 (Bicarb): 35 Bicarbonate Concentrate Lot No.: [id number] Acid Concentrate Lot No.: [id number] Chlorine Testing - Before each treatment and every 4 hours: Time On: 0902 Time Off: 1203 Treatment Goal: 0-2L as tolerated MAP >65 Weight Height: 177.8 cm (5' 10") (01/19/25656) Weight: 58.9 kg (129 lb 13.6 [...] Name: Jun Snyder Patient : 1965 Acct: [id number] Date of Admission: 01/19/2025 Room/Bed: [facility] A Code Status: Full Code Allergies: Allergies Allergen Reactions Lisinopril Swelling and Angioedema Diagnosis: Patient Active Problem List Diagnosis Anemia Paroxysmal A-fib ([facility]) ([facility]) HTN (hypertension) ESRD on hemodialysis ([facility]) ([facility]) IgA nephropathy determined by biopsy of kidney Diverticulosis Nonrheumatic aortic valve stenosis Calcification of abdominal aorta ([facility]) Missed vaccination due to patient refusal Tobacco abuse Alcohol use disorder in remission Atrial flutter, unspecified type ([facility]) RSV (acute bronchiolitis due to respiratory syncytial virus) Aortic stenosis Upper GI bleed S/P AVR Acute hypoxic respiratory failure ([facility]) Acute encephalopathy Pneumoperitoneum Gastric ulceration Severe malnutrition (CMS/HCC) ([facility]) Pleural effusion Peritonitis due to fungus ([facility]) History of abdominal surgery Leg DVT (deep venous thromboembolism), acute, left ([facility]) 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, 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) 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[facility]) Leukocytosis Decubitus ulcer of sacral region, unstageable (HCC) Pneumonia of both lungs due to methicillin susceptible Staphylococcus aureus (MSSA) ([facility]) Sacral osteomyelitis ([facility]) ([facility]) Acute respiratory failure with hypoxia ([facility]) [J96.01] Tracheostomy care ([facility]) [Z43.0] 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[facility]) [facility] (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 Complication of tracheostomy ([facility]) ([facility]) Treatment: Hemodialysis 1:1 Priority: Routine Location: [...] Beltran RN Incapacitated Nurse Education Completed: Yes P.KRomulo HBsAg ONLY: Date Drawn: December 26, 2024 [...] 0801 PLT 279 01/20/202514 NA 135 (L) 01/20/2025 05 K 4.8 01/20/202514 CL 98 01/20/202514 CO2 22 01/20/2025513 BUN 91 (H) 01/20/2025513 CREATININE 4.31 (H) 01/20/2025513 CREATININE 9.99 (H) 10/27/2019544 CALCIUM 9.2 01/20/2025513 PHOS 6.1 (H) 01/20/2025513 IV Drips and Rate/Dose pantoprazole (ProtoNix) 80 mg in sodium chloride 0.9 % 100 mL (0.8 mg/mL) infusion, 8 mg/hr Safety - Before each treatment: Dialysis Machine No.: [id number] RO Machine Number: [id number] Dialyzer Lot No.: [id number] Tubing Lot Number: [id number] All Connections Secure: Yes Venous Parameters Set: Yes Arterial Parameters Set: Yes NS Bag: Yes Saline Line Double Clamped: Yes Dialyzer: Nipro Prime Volume (mL): 200 mL RO Machine Number: [id number] RO Machine Log Sheet Completed: Yes Machine Alarm Self Test: Completed, Passed (1000) (01/20/25 1000) Air Foam Detector: Tested, Proper Function, pH Reading Extracorporeal Circuit Tested for Integrity: Yes Machine Conductivity: 13.6 Manual Conductivity: 13.8 Manual Ph: 7.2 Bleach Test (Neg): Yes Bath Temperature: 36 C (96.8 F) Conductivity Meter Serial #: [id number] Machine Functioning Alarm Free? Yes Dialysis Bath: K+ (Potassium): 2 Ca+ (Calcium): 2.5 Na+ (Sodium): 137 HCO3 (Bicarb): 35 Bicarbonate Concentrate Lot No.: [id number] Acid Concentrate Lot No.: [id number] Chlorine Testing - Before each treatment and every 4 hours: Time On: 1021 Weight Height: 177.8 cm (5' 10") (01/19/25656) Weight: 58.9 kg (129 lb 13.6 [...] 80 600 Yes ID at bedside, UF [id number] 01/20/25 1130 400 mL/min 600 ml/hr -140 [...] -- 87 -- -- 01/20/25 1150 (!) 89 -- -- 91 -- -- 01/20/25 1145 [...] Critical lab value (Hgb 6.6) Provider Name: LEONA ESTRADA Provider Role: Attending physician Method of Communication: [...] Education: Verbalized Understanding documented in this encounter [facility] 02-01-2025 Miscellaneous Notes Formattin g of this note might be different from the original. 7000 created in [facility] per TCC request. Facility notified via [facility]. Authorization approved for the [facility] through 02/02/25, discharge orders placed, ROSENDO completed. Transportation placed and confirmed for today 02/01/25 at 330pm to the [facility], physician/patient/ward secretary/RN aware. [facility] tasked to send 7000 and DC summary. Hep B panels, 3 days of HD flowsheets, MAR and OPAT sent to the [facility] via [facility]. Call placed to the [facility] to confirm able to still take patient [...] Nutrition Support Outcome: Progressing Updates placed to [facility] via [facility]port per [facility] request. Await review and response regarding [...] Nutrition Support Outcome: Progressing Message sent to Business Unit Director to start [facility] auth for [facility]. Problem: Pain - Adult Goal: Verbalizes/displays adequate [...] order to start auth to return to [facility] per previous TCC note of plan. Updates [...] or Improved Outcome: Progressing Updates placed [facility] per [facility] request. Await review and response regarding ability to accept. TCC notified. Tasked [facility] to send updates to [facility], per their request. Warfarin bridging per MD notes, patient will need NEW auth for return to [facility]. Problem: Pain - Adult Goal: Verbalizes/displays adequate [...] Schafer RN Outcome: Progressing 01/28/2025236 by Jun Shcafer RN Outcome: Progressing Problem: Knowledge Deficit Goal: [...] Perineal skin integrity is maintained or improved 01/28/2025 035 by Jun Schafer RN Outcome: Progressing 01/28/2025 [...] fall injury Outcome: Progressing Flowsheets (Taken 01/26/2025 08) Free from fall injury: Instruct family/caregiver on [...] Nutrition Support Outcome: Progressing Dialysis placed to [facility] via [facility]port per TCC request. Care Management Progress Note PCU transfer pending. Received one unit PRBC this AM for low Hgb. HD today. Heparin drip ongoing. IVAB (plan for 6 week course). Wound vac to sacral wound. Room Air. Dysphagia diet; pureed. DC plan - [facility]. Facility updated via careport. SUBSTANCE ADDICTION COORDINATOR asked to send dialysis note per their [...] from fall injury Outcome: Progressing Flowsheets (Taken 01/25/2025 08) Free from fall injury: Instruct family/caregiver on [...] - Payne indicated: N/A OPAT placed to [facility] via [facility]port per TCC request. 01/25/25 1047 Rapid Rounds Attendance Clerical Associate Planned Discharge Disposition SNF Today we still await Administering IV medications;Chief Scientist recommendations (comment);Clinical stability;Symptomatic control;Post-discharge arrangement completion (comment) Patient remains on MICU. S/P colonoscopy 01/24-negative for active bleeding. Heparin drip resumed post procedure. Wound vac to sacral wound; IVAB till 02/13; OPAT under chart review > media. Plan for MBSS. Room Air. DC plan - [facility] when medically appropriate. CM will continue to [...] Interventions Goal: Nutrition Support Outcome: Progressing [facility] Patient Name: Jun Snyder Procedure Date: 01/24/2025 12:37 PM Gender: Male Date of : 1965 Age: 59 Admit Type: Inpatient Note Status: Finalized Endoscopist: Chadd Davis MD, [id number] Procedure: Colonoscopy Indications: Evaluation of unexplained GI [...] by the physician, the nurse and the handle sander operator in the pre-procedure area in the procedure [...] anticoagulant use Procedure Code(s): --- Professional --- 57782, Colonoscopy, flexible; diagnostic, including collection of specimen(s) by brushing or washing, when performed (separate procedure) --- Technical --- 44217, Colonoscopy, flexible; diagnostic, including collection of specimen(s) by brushing or washing, when performed (separate procedure) Diagnosis Code(s): --- Professional --- K64.0, First degree hemorrhoids K92.1, Melena (includes Hematochezia) Z79.01, [facility] (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 anticoagulants K57.30, Diverticulosis of large intestine without perforation or abscess without bleeding --- Technical --- K64.0, First degree hemorrhoids K92.1, Melena (includes Hematochezia) Z79.01, [facility] (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 anticoagulants K57.30, Diverticulosis of large intestine without perforation or abscess without bleeding CPT copyright 2021 [employer]. All rights reserved. The codes documented in this report are preliminary and upon hotel maintenance technician review may be revised to meet current [...] Early Mobility/Exercise Safety Screen: Activity: Bed mobility -[facility] Score: Lying in bed LDAs Peripheral [...] Note: Diagnosis: Principal Problem: Complication of tracheostomy ([facility]) ([facility]) Active Problems: Severe malnutrition ([facility]) ([facility]) Chief Complaint: Jun Snyder is a 59 y.o. male with chief complaint of: trach complications, OM from decub Reason Palliative Following:Goals of Care Plan:Ongoing Goals of Care Discussions and Support Code Status: Full Code Medications: Palliative Care Not Managing Any Medications Nursing: Custodial Care and Skin Integrity Social Work: Palliative [...] care team, reviewed Health Care Power of Services Tech (HCPOA) with patient. Patient agreeable to complete HCPOA chose to name ko Snyder as primary agent and named his sig other Toma Reddwell as first alternate. Patient did not name [...] ko Nelson primary agent and laurence Chua SO, secondary agent. DC plan - return to [place]. CM will continue to follow Length of Stay (Days): 1 GMLOS: 4.5 Images from the original note were not included. [facility] Palliative Care Transitions of Care Note Jun Snyder : 1965 ADMIT DATE: 01/19/2025 DISCHARGE DATE: TBD PRIMARY CARE PHYSICIAN: Leilani Troncoso CODE STATUS: Full Code DISCHARGE DIAGNOSES: Principal Problem: Complication of tracheostomy (CMS/HCC) ([facility]) Active Problems: Severe malnutrition (CMS/HCC) ([facility]) BRBPR (bright red blood per rectum) [...] tube placement -- noted to have bile peritonitis" 11/28/24: transferred to [facility] He ended up developing sacral ulcer and osteomyelitis at [facility]. He then ended up dislodging his tracheostomy, and was brought to [facility] ED for further care. Palliative care consulted for goals of care. Goals of care - Patient has capacity to make medical decisions - legal surrogate decision maker HCPOA Omar, 1st alternate is significant other Toma - goals of care include: 1) to continue current management, continue with aggressive medical therapy, procedures, antibiotics at this time - planning to eventually discharge to [place] [facility] - will forward chart to Palliative [...] AV replacement Supratherapeutic INR - [facility] Mechan[employer] valve in 09/2024 - coumadin held due to bleeding and supratherapeutic levels Chronic respiratory failure s/p tracheostomy Tracheostomy dislodgement - has been saturating well without trach on RA so has not been replaced FOLLOW UP TESTING, PENDING RESULTS OR REFERRALS AT TRANSITIONAL CARE VISIT: No DISPOSITION: Skilled Rehab Facility FACILITY/HOME CARE AGENCY NAME: [facility] Follow up with Palliative Care on [...] Safety: The patient was placed on a secured entrance monitor and vital signs, pulse oximetry, and level [...] signed by this procedure note. [facility] Patient Name: Jun Snyder Procedure Date: 01/21/2025 9:59 AM Gender: Male Date of : 1965 Age: 59 Admit Type: Inpatient Note Status: Finalized Endoscopist: ELDON Alba MD, [id number] Procedure: Upper GI endoscopy Indications: Acute post [...] by the physician, the nurse and the handle sander operator in the pre-procedure area in the procedure [...] loss: None. Procedure Code(s): --- Professional --- 63222, Esophagogastroduodenoscopy, flexible, transoral; diagnostic, including collection of specimen(s) by brushing or washing, when performed (separate procedure) --- Technical --- 53258, Esophagogastroduodenoscopy, flexible, transoral; diagnostic, including collection of [...] D62, Acute posthemorrhagic anemia CPT copyright 2021 [employer]. All rights reserved. The codes documented in this report are preliminary and upon hotel maintenance technician review may be revised to meet current [...] Care Plan Patient was transferred over from [facility] after self-dislodged tracheostomy this morning around [...] maintaining nutritional needs Recent Flowsheet Documentation Taken 01/19/2025799 by Shannen Fields RN Nutrient intake appropriate for improving, restoring, or maintaining nutritional needs: Assess nutritional status and recommend course of action Monitor oral intake, labs, and treatment plans Return [facility] per [facility] request. Await review and response regarding ability to accept. TCC notified. 01/19/25 1300 Rapid Rounds Attendance Clerical Associate Planned Discharge Disposition SNF Today we still await Clinical stability;Chief Scientist recommendations (comment);Symptomatic control;Post-discharge arrangement completion (comment) Patient admitted due to trach dislodgement. Patient was discharged from LTAC to the [place]; there only a matter of hours per [...] He would like patient to return to [place] SNF is able at DC. Does not want patient to return to [facility]. SUBSTANCE ADDICTION COORDINATOR asked to place referral to [place]. CM will continue to follow for DC [...] improved Outcome: Progressing documented in this encounter [facility] 02-01-2025 History of Presen t illness Narrative Images from the original note were not included. [facility] - Infectious Diseases Advanced [...] Labs 01/30/25 0047 01/30/25 1224 01/31/25 0010 01/31/25 2052 02/01/25 0114 WBC 8.8 -- 9.3 -- 7.9 HGB 8.7* < > 8.8* 9.2* 8.9* HCT 28.1* < > 27.9* 28.8* 28.3* PLT 276 -- 278 -- 282 < > = values in this interval not displayed. Micro: 01/22 C auris screen: negative 01/22 A baumannii screen: negative Previous ([facility]) 01/02- sacral wound cx- E faecalis [...] of use of antimicrobials. Mikala MORAN PA-C [facility] Infectious Disease Nephrology Progress Note Following for ESRD Patient alert and cooperative. Seen upright in bed. Answers all basic questions with clear, soft vocal quality. Follows all basic commands. Current Inpatient Medications: Reviewed on NOV. Vitals: BP 121/61 (BP Location: Right arm, Patient Position: Sitting) Pulse 69 Temp 36.2 C (97.1 F) (Temporal) Resp 24 Ht 1.778 m (5' 10") Wt 46.1 kg (101 lb 10.1 oz) [...] Labs 01/30/25 0047 01/30/25 1224 01/31/25 0010 01/31/25 20502/01/25 0114 WBC 8.8 -- 9.3 -- 7.9 [...] not included. Speech-Language Pathology SPEECH LANGUAGE PATHOLOGY [facility] Dysphagia Treatment Note Patient Name: Jun Snyder Evaluation Date: 02/01/2025 Date of : 1965 Admission Date: 01/19/2025 2:13 AM Age: 59 y.o. Room/Bed: 1C-144/1C-144 A Subjective Patient alert and cooperative. Seen upright in bed. Answers all basic questions with clear, soft vocal quality. Follows all basic commands. RN at bedside to administer medications. Spoke with RN Mary who cleared pt for treatment. Current Diet: [...] this date - states his dentures are "soaking". Patient remains apparently confused - reaching for bed remote and randomly pressing buttons. Despite ST offers to help/asking what is needed patient unable to state what positioning he was trying to achieve. Do question if this is patient's safest diet given impulsivity and poor adherence to swallow strategies. Plan & Recommendations Plan: Continue acute RELIGIOUS LEADER therapy per initial plan of care and [...] Expected End: 02/02/25 Resolved: 01/25/25 Therapy Time RELIGIOUS LEADER Individual Minutes Time In: 816 Time Out: 829 Minutes: 13 KARLA Salazar Hospitalist Progress Note Subjective: Admit Date: 01/19/2025 PCP: Leilani Troncoso Room#: 1C-144/-144 A Chief Complaint Patient presents with Tracheostomy Tube Change Brief Hospital course: Jun Snyder is a 59 y.o. male who who presented to [facility] 01/19 after inadvertent removal of his tracheostomy. He was transferred to [facility] ICU for surgical evaluation. On arrival he [...] line on 01/29 Nephrology following, on dialysis RELIGIOUS LEADER following PT/OT recommends SNF Patient will be [...] History: Diagnosis Date Acute renal failure (ARF) ([facility]) 10/19/2019 Anemia 12/30/2021 Calcification of abdominal aorta ([facility]) 10/08/202309/[address] abd Diverticulosis 10/08/2023 ESRD on hemodialysis ([facility]) ([facility]) 10/26/2019 Hemodialysis patient ([facility]) ([facility]) HTN (hypertension) 12/01/2022 Hypertension IgA nephropathy IgA nephropathy determined by biopsy of kidney 10/26/2019 Missed vaccination due to patient refusal 10/08/2023 Has a number of non-scientific based beliefs which interfere with his understanding and acceptance of the medical benefit of vaccination. Nonrheumatic aortic valve stenosis 10/08/2023 Paroxysmal A-fib ([facility]) ([facility]) 08/18/2023 Tobacco abuse 10/08/2023 Adult diet [...] 2.0* CARDIAC ENZYMES: No results for input(s): "TROPONINI" in the last 72 hours. Procalcitonin: No results found for: "PROCAL" COVID-19 PCR: No results for input(s): "COVID19" in the last 72 hours. Objective: Vitals: BP 138/61 (BP Location: Right arm, Patient Position: Sitting) Pulse 74 Temp 36.2 C (97.2 F) (Temporal) Resp 16 Ht 5' 10" (1.778 m) Wt 101 lb 10.1 oz [...] 20 mL/hr, Last Rate: 20 mL/hr (01/30/25 962) Assessment Data: (CAT1) Reviewed 2 notes from [...] by ID -S/p tunneled central line placement -RELIGIOUS LEADER follow, dysphagia diet -PT OT DC recommend [...] MD Division of Hospital Medicine Inpatient Medical Services/[facility] Anticoagulation Management Service ([facility]) Inpatient Warfarin Consult HPI: Jun Snyder is a 59 y.o. male admitted on 01/19/2025 for Complication of tracheostomy ([facility]) ([facility]) [J95.00] Past Medical History: Diagnosis Date Acute renal failure (ARF) ([facility]) 10/19/2019 Anemia 12/30/2021 Calcification of abdominal aorta ([facility]) 10/08/202309/[address] abd Diverticulosis 10/08/2023 ESRD on hemodialysis ([facility]) ([facility]) 10/26/2019 Hemodialysis patient ([facility]) ([facility]) HTN (hypertension) 12/01/2022 Hypertension IgA nephropathy IgA nephropathy determined by biopsy of kidney 10/26/2019 Missed vaccination due to patient refusal 10/08/2023 Has a number of non-scientific based beliefs which interfere with his understanding and acceptance of the medical benefit of vaccination. Nonrheumatic aortic valve stenosis 10/08/2023 Paroxysmal A-fib ([facility]) ([facility]) 08/18/2023 Tobacco abuse 10/08/2023 Patient is [...] Labs 01/30/25 0047 01/30/25 1224 01/31/25 0010 01/31/25 2052 02/01/25 0114 HGB 8.7* < > 8.8* 9.2* [...] dose accordingly 3. Will facilitate f/u at [facility] upon discharge Tiffanie Dial RPh [facility] is available daily [phone] via PenBlade. If no response on TruHearing Chat then please page [phone]. Images from the original note were not included. OCCUPATIONAL THERAPY [facility] Re-Evaluation Name/MRN: Jair Snyder ([id number]) Evaluation Date: 01/31/2025 Date of : 1965 Admission Date: 01/19/2025 2:13 AM Age: 59 y.o. Room[facility]Bed: [facility] A Discharge Recommendation: Custodial Facility Other: DME TBD Assessment IMPRESSION: OT [...] History: Diagnosis Date Acute renal failure (ARF) ([facility]) 10/19/2019 Anemia 12/30/2021 Calcification of abdominal aorta ([facility]) 10/08/202309/[address] abd Diverticulosis 10/08/2023 ESRD on hemodialysis ([facility]) ([facility]) 10/26/2019 Hemodialysis patient ([facility]) ([facility]) HTN (hypertension) 12/01/2022 Hypertension IgA nephropathy IgA nephropathy determined by biopsy of kidney 10/26/2019 Missed vaccination due to patient refusal 10/08/2023 Has a number of non-scientific based beliefs which interfere with his understanding and acceptance of the medical benefit of vaccination. Nonrheumatic aortic valve stenosis 10/08/2023 Paroxysmal A-fib ([facility]) ([facility]) 08/18/2023 Tobacco abuse 10/08/2023 Past Surgical History: Past Surgical History: Procedure Laterality Date APPENDECTOMY CARDIAC CATHETERIZATION N/A 10/09/2024 Performed by Bob Watson MD at [facility] Cardiac Cath/EP Lab CARDIAC CATHETERIZATION Bilateral 11/01/2024 Performed by Bob Watson MD at [facility] Cardiac Cath/EP Lab CARDIAC CATHETERIZATION N/A 11/01/2024 Performed by Bob Watson MD at [facility] Cardiac Cath/EP Lab COLONOSCOPY N/A 01/24/2025 Performed by Chadd Davis MD at [facility] ENDOSCOPY FISTULAGRAM (HISTORICAL) Left 09/15/2021 LEFT UPPER ARM HX AV FISTULA CREATION IR EMBOLIZATION 10/14/2024 IR EMBOLIZATION 10/14/2024 [facility] SPECIAL PROCEDURES IR FISTULAGRAM 08/07/2022 IR FISTULAGRAM 08/07/2022 [facility] IR IMAGING TONSILLECTOMY (HISTORICAL) Admission Diagnosis: Patient Active Problem List Diagnosis Date Noted Severe malnutrition ([facility]) ([facility]) 01/19/2025 Complication of tracheostomy ([facility]) ([facility]) 01/19/2025 [facility] (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 01/12/2025 Acute respiratory failure with hypoxia ([facility]) [J96.01] 01/08/2025 Tracheostomy care ([facility]) [Z43.0] 01/08/2025 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[facility]) 01/08/2025 Sacral osteomyelitis ([facility]) ([facility]) 01/03/2025 Pneumonia of both lungs due to methicillin susceptible Staphylococcus aureus (MSSA) ([facility]) 01/01/2025 Leukocytosis 12/30/2024 Decubitus ulcer of sacral region, unstageable ([facility]) 12/30/2024 Peritonitis due to fungus ([facility]) 11/30/2024 History of abdominal surgery 11/30/2024 Leg DVT (deep venous thromboembolism), acute, left ([facility]) 11/30/2024 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, 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 of skin (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) 11/30/2024 Pleural effusion 11/28/2024 Gastric ulceration 2024 Atrial flutter, unspecified type ([facility]) 10/03/2024 RSV (acute bronchiolitis due to respiratory syncytial virus) 10/03/2024 Diverticulosis 10/08/2023 Nonrheumatic aortic valve stenosis 10/08/2023 Calcification of abdominal aorta ([facility]) 10/08/2023 Missed vaccination due to patient refusal 10/08/2023 Tobacco abuse 10/08/2023 Alcohol use disorder in remission 10/08/2023 Paroxysmal A-fib ([facility]) ([facility]) 08/18/2023 HTN (hypertension) 12/01/2022 ESRD on hemodialysis ([facility]) ([facility]) 10/26/2019 IgA nephropathy determined by biopsy of kidney 10/26/2019 BRBPR (bright red blood per rectum) 01/19/2025 Aortic stenosis 10/03/2024 Upper GI bleed 10/03/2024 S/P AVR 10/03/2024 Acute hypoxic respiratory failure ([facility]) 10/03/2024 Acute encephalopathy 10/03/2024 Pneumoperitoneum 10/03/2024 [...] Daily Activity Raw Score: 12 ADL Inpatient [facility] G-Code Modifier: CL Plan Pt would benefit [...] of Care supervision is transferred to a [facility] Services Occupational Therapist. Goals and/or treatment plan was established in collaboration with patient/family/other representatives. Images from the original note were not included. Speech-Language Pathology SPEECH LANGUAGE PATHOLOGY [facility] Dysphagia Treatment Note Patient Name: Jun Snyder Evaluation Date: 01/31/2025 Date of : 1965 Admission Date: 01/19/2025 2:13 AM Age: 59 y.o. Room/Bed: 1C144/1C144 A Subjective Patient alert and cooperative. Seen [...] diet and for oropharyngeal strengthening. Continue acute RELIGIOUS LEADER therapy per initial plan of care and [...] Expected End: 02/02/25 Resolved: 01/25/25 Therapy Time RELIGIOUS LEADER Individual Minutes Time In: 1454 Time Out: 1515 Minutes: 21 FRANKLIN Carmona Images from the original note were not included. OCCUPATIONAL THERAPY [facility] Name/MRN: Jair Snyder ([id number]) Date: 01/31/2025 Attempted OT re-eval once pt returned from dialysis, pt very fatigued. Initially responsive to OT then stops conversing and unable to remain roused. Will follow and attempt as able. RONNY Ramirez/Tameka Images from the original note were not included. [facility] - Infectious Diseases Advanced Practice Provider [...] normal. Behavior: Behavior normal. Labs: Recent Labs 01/29/25 0337 01/30/25 0047 01/31/25 0010 NA 134* 135* 138 K 3.7 3.7 4.3 CL 94* 99 99 CO2 23 23 27 BUN 21 10 15 CREATININE 4.17* 2.56* 3.64* GLUCOSE 80 88 87 CALCIUM 9.8 9.6 10.0 PROT -- -- 7.3 BILITOT -- -- 0.8 ALKPHOS -- -- 218* AST -- -- 31 ALT -- -- 11 Recent Labs 01/29/25 0337 01/30/25 0047 01/30/25 1224 01/31/25 0010 WBC 9.4 8.8 -- 9.3 HGB 8.6* 8.7* 9.8* 8.8* HCT 27.3* 28.1* 31.5* 27.9* PLT 271 276 -- 278 Micro: 01/22 C auris screen: negative 01/22 A baumannii screen: negative Previous ([facility]) 01/02- sacral wound cx- E [...] of use of antimicrobials. Mikala MORAN PA-C [facility] Infectious Disease Images from the original note were not included. OCCUPATIONAL THERAPY [facility] Name/MRN: Jair Snyder ([id number]) Date: 01/31/2025 Attempted OT re-eval this AM, pt OOR at dialysis. Will follow and re-attempt as able. RONNY Ramirez/Tameka Nephrology Progress Note Following for ESRD Pt seen on HD no complaints today Bp stable Current Inpatient Medications: Reviewed on NOV. Vitals: BP 137/76 Pulse 67 Temp 36.3 C (97.3 F) Resp 20 Ht 1.778 m (5' 10") Wt 53.2 kg (117 lb 4.6 oz) [...] with any questions or concerns Bree Molina APRN, CNP A-G LAST CODE STRIPER [facility] [phone] Pt seen and examined independently by me. I reviewed with DENIA-SAMIA the medical history and the findings on physical examination. I discussed the patient s diagnosis and concur with the treatment plan as documented in his note. Please call [phone] or message me through TruHearing with any questions or concerns. [facility] Anticoagulation Management Service ([facility]) Inpatient Warfarin Consult HPI: Jun Snyder is a 59 y.o. male admitted on 01/19/2025 for Complication of tracheostomy ([facility]) ([facility]) [J95.00] Past Medical History: Diagnosis Date Acute renal failure (ARF) ([facility]) 10/19/2019 Anemia 12/30/2021 Calcification of abdominal aorta ([facility]) 10/08/202309/[address] abd Diverticulosis 10/08/2023 ESRD on hemodialysis ([facility]) ([facility]) 10/26/2019 Hemodialysis patient ([facility]) ([facility]) HTN (hypertension) 12/01/2022 Hypertension IgA nephropathy IgA nephropathy determined by biopsy of kidney 10/26/2019 Missed vaccination due to patient refusal 10/08/2023 Has a number of non-scientific based beliefs which interfere with his understanding and acceptance of the medical benefit of vaccination. Nonrheumatic aortic valve stenosis 10/08/2023 Paroxysmal A-fib ([facility]) ([facility]) 08/18/2023 Tobacco abuse 10/08/2023 Patient is [...] 2.2* Date INR Dose 01/31 2.2 0.5mg /6 2.5 HOLD 01/29 2.4 Held 4 2.2 0.5mg 5/3 1.9 1mg 01/26 1.8 1 mg 01/25 [...] dose accordingly 3. Will facilitate f/u at [facility] upon discharge Tiffanie Dial RPh [facility] is available daily [phone] via PenBlade. If no response on TruHearing Chat then please page [phone]. Hospitalist Progress Note Subjective: Admit Date: 01/19/2025 PCP: Leilani Troncoso Room#: 1C-144/1C-144 A Chief Complaint Patient presents with Tracheostomy Tube Change Brief Hospital course: Jun Snyder is a 59 y.o. male who who presented to [facility] 01/19 after inadvertent removal of his tracheostomy. He was transferred to [facility] ICU for surgical evaluation. On arrival he [...] HD successfully. hemodynamically stable. Transferred out to [facility] 01/27 ID following for sacral osteomyelitis, s/p wound debridement to bone on 01/02, cultures grew E faecalis and Clostridium, continue with renally dosed ampicillin sulbactam for 6 weeks course through 02/13/2025, needs tunneled line, status post IR CVC tunneled line on 01/29 Nephrology following, on dialysis RELIGIOUS LEADER following PT recommends SNF Interval History: 01/31/2025-No overnight issues. Patient is seen and examined Patient is resting in his bed Dialysis today Denies any new acute complaints Labs reviewed, ESRD picture, hemoglobin 8.8, stable Case and plan discussed with patient and bedside nurse. All questions answered. Past Medical History: Past Medical History: Diagnosis Date Acute renal failure (ARF) ([facility]) 10/19/2019 Anemia 12/30/2021 Calcification of abdominal aorta ([facility]) 10/08/202309/[address] abd Diverticulosis 10/08/2023 ESRD on hemodialysis ([facility]) ([facility]) 10/26/2019 Hemodialysis patient ([facility]) ([facility]) HTN (hypertension) 12/01/2022 Hypertension IgA nephropathy IgA nephropathy determined by biopsy of kidney 10/26/2019 Missed vaccination due to patient refusal 10/08/2023 Has a number of non-scientific based beliefs which interfere with his understanding and acceptance of the medical benefit of vaccination. Nonrheumatic aortic valve stenosis 10/08/2023 Paroxysmal A-fib ([facility]) ([facility]) 08/18/2023 Tobacco abuse 10/08/2023 Adult diet [...] 2.2* CARDIAC ENZYMES: No results for input(s): "TROPONINI" in the last 72 hours. Procalcitonin: No results found for: "PROCAL" COVID-19 PCR: No results for input(s): "COVID19" in the last 72 hours. Objective: Vitals: BP 129/70 Pulse 69 Temp 36.3 C (97.3 F) Resp 20 Ht 5' 10" (1.778 m) Wt 117 lb 4.6 oz [...] 20 mL/hr, Last Rate: 20 mL/hr (01/30/25 9241) Assessment Data: (CAT1) Reviewed 2 notes from [...] by ID -S/p tunneled central line placement -RELIGIOUS LEADER follow, dysphagia diet -PT OT DC planning [...] MD Division of Hospital Medicine Inpatient Medical Services/[facility] Anticoagulation Management Service (SAILAJA) Inpatient Warfarin Consult HPI: Jun Snyder is a 59 y.o. male admitted on 01/19/2025 for Complication of tracheostomy ([facility]) ([facility]) [J95.00] Past Medical History: Diagnosis Date Acute renal failure (ARF) ([facility]) 10/19/2019 Anemia 12/30/2021 Calcification of abdominal aorta ([facility]) 10/08/202309/[address] abd Diverticulosis 10/08/2023 ESRD on hemodialysis ([facility]) ([facility]) 10/26/2019 Hemodialysis patient ([facility]) ([facility]) HTN (hypertension) 12/01/2022 Hypertension IgA nephropathy IgA nephropathy determined by biopsy of kidney 10/26/2019 Missed vaccination due to patient refusal 10/08/2023 Has a number of non-scientific based beliefs which interfere with his understanding and acceptance of the medical benefit of vaccination. Nonrheumatic aortic valve stenosis 10/08/2023 Paroxysmal A-fib ([facility]) ([facility]) 08/18/2023 Tobacco abuse 10/08/2023 Patient is [...] 01/30/25 0047 INR 2.5* Date INR Dose 6 2.5 HOLD 01/29 2.4 Held 01/28 2.2 [...] dose accordingly 3. Will facilitate f/u at [facility] upon discharge Fatuma Odonnell RPh SAILAJA is available daily [phone] via PenBlade. If no response on TruHearing Chat then please page [phone]. Images from the original note were not included. OCCUPATIONAL THERAPY [facility] Name/MRN: Jair Snyder ([id number]) Date: 01/30/2025 Attempted OT services however, Pt [...] candidate for diet upgrade. Christina Limon MS, CCC/RELIGIOUS LEADER Nutrition Assessment Type and Reason for Visit: [...] Severe who remains admitted after presenting to [facility] on 01/19 after inadvertent removal of his tracheostomy. He was transferred to [facility] ICU for surgical evaluation, however pt was maintaining appropriate O2 saturations on room air and the decision was made to leave the tracheostomy out. Pt transferred to [facility] later that day (01/19). Course c/b [...] MWF schedule with Nephrology following. Transferred to [facility] 01/27. ID continues following for sacral osteomyelitis and recs IV Unasyn x 6 weeks--> stop date 02/13. Course c/b anxiousness and paranoia, often refusing care and wound dressing changes. In terms of nutrition, pt was only receiving nutrition via PEG SKETCHER. He was NPO 01/19, Nepro @ 50mls/hr initiated 01/20 which ran until pt was made NPO/CLD for colonoscopy prep 01/23. Remained NPO 01/24, underwent MBSS 01/25 with recs for pureed/thin which remains his current diet with RELIGIOUS LEADER following and recommending the same. PO intake [...] (kg): 58.9 kg Total Energy Requirements (kcals/day): 1-2356kcals/day Weight Used for Protein Requirements: Current Weight [...] Ordered Anthropometric Measures: Height: 177.8 cm (5' 10") Current Body Weight: 53.1 kg (117 lb 1 oz) (01/29 bed) Weight Source: Bed Scale Admission Body Weight: 58.5 kg (129 lb) (bedscale obtained 01/[address], no admit weight was obtained) Usual Body Weight: (per EPIC review --> 10/08/23: 207#, 11/12: 208#, 08/28: 206#, 10/04/24: 192#, 10/15: 207# bedscale, 10/31: 200#, 11/28: 161#, 01/18: 142#) [place] Body Weight (lbs) (Calculated): 166 lbs [place] Body Weight (Kg) (Calculated): 75 kg % [place] Body Weight (Calculated): 70.5 % BMI (kg/m2) [...] soon to determine Marilu Pollock RD Contact: *[phone] Images from the original note were not included. PHYSICAL THERAPY [facility] Treatment Note Name/MRN: Jair Snyder ([id number]) Date of : 1965 Age: 59 y.o. Room/Bed: 1C-144/1C-144 A Discharge Recommendation: Custodial Facility Other: tbd Assessment Pt requires mod [...] Timed Code Treatment Minutes: (2FA) Jocelin Ramirez SKETCHER Cosigned by Betty Grady, PT at 01/30/2025 1:28 PM EDT Patient receiving other care, will attempt smoking cessation counseling at a later date. Images from the original note were not included. [facility] - Infectious Diseases Advanced Practice Provider [...] -- -- -- -- 1.778 m (5' 10") 01/30/25 0737 146/97 (!) 35.8 C (96.4 [...] negative 01/22 A baumannii screen: negative Previous ([facility]) 01/02- sacral wound cx- E faecalis (Amp-S), skin ila, Clostridium clostrioforme 01/01- blood cx- 2/2 NG 12/30- blood cx- 2/2 NGTD 12/30- sputum cx- MSSA, resp ila 12/25- blood cx- 2/2 negative 12/14- sputum cx- MSSA, resp ila 12/14- MRSA pcr- MSSA 12/11- sputum cx- MSSA, resp ila Previous ([facility]) 11/28- L pleural fluid- negative 11/16- abd [...] be of moderate complexity. Mikala MORAN PA-C [facility] Infectious Disease Hospitalist Progress Note Subjective: Admit Date: 01/19/2025 PCP: Leilani Troncoso Room#: 1C-144/1C-144 A Chief Complaint Patient presents with Tracheostomy Tube Change Brief Hospital course: Jun Snyder is a 59 y.o. male who who presented to [facility] 01/19 after inadvertent removal of his tracheostomy. He was transferred to [facility] ICU for surgical evaluation. On arrival he [...] HD successfully. hemodynamically stable. Transferred out to [facility] 01/27 ID following for sacral osteomyelitis, s/p wound debridement to bone on 01/02, cultures grew E faecalis and Clostridium, continue with renally dosed ampicillin sulbactam for 6 weeks course through 02/13/2025, needs tunneled line, status post IR CVC tunneled line on 01/29 Nephrology following, on dialysis RELIGIOUS LEADER following PT recommends SNF Interval History: 01/30/2025-No [...] History: Diagnosis Date Acute renal failure (ARF) ([facility]) 10/19/2019 Anemia 12/30/2021 Calcification of abdominal aorta ([facility]) 10/08/202309/[address] abd Diverticulosis 10/08/2023 ESRD on hemodialysis ([facility]) ([facility]) 10/26/2019 Hemodialysis patient ([facility]) ([facility]) HTN (hypertension) 12/01/2022 Hypertension IgA nephropathy IgA nephropathy determined by biopsy of kidney 10/26/2019 Missed vaccination due to patient refusal 10/08/2023 Has a number of non-scientific based beliefs which interfere with his understanding and acceptance of the medical benefit of vaccination. Nonrheumatic aortic valve stenosis 10/08/2023 Paroxysmal A-fib ([facility]) ([facility]) 08/18/2023 Tobacco abuse 10/08/2023 Adult diet Dysphagia - Pureed 24HR INTAKE/OUTPUT: Intake/Output Summary (Last 24 hours) at 01/30/2025 0946 Last data filed at 01/29/2025 1616 Gross per 24 hour Intake 600 ml Output -- Net 600 ml LABS: CBC: Recent Labs 01/28/25 0516 01/29/2533601/30/2546 WBC 9.8 9.4 8.8 RBC 3.01* 3.06* 3.15* HGB 8.5* 8.6* 8.7* HCT 26.3* 27.3* 28.1* MCV 87.4 89.2 89.2 RDW 19.0* 19.0* 18.9* PLT 240 271 276 BMP: Recent Labs 01/28/25 0632 01/29/25 03301/30/2546 NA 137 134* 135* K 3.6 3.7 3.7 CL 98 94* 99 CO2 26 23 23 BUN 14 21 10 CREATININE 3.37* 4.17* 2.56* GLUCOSE 82 80 88 CALCIUM 10.0 9.8 9.6 ANIONGAP 13 17* 13 LIVER PROFILE:No results for input(s): "AST", "ALT", "BILITOT", "ALKPHOS", "PROT" in the last 72 hours. No lab exists for component: LABALBU PT/INR: Recent Labs 01/28/25 0516 01/29/2533601/30/2546 PROTIME 21.9* 24.0* 24.9* INR 2.2* 2.4* 2.5* CARDIAC ENZYMES: No results for input(s): "TROPONINI" in the last 72 hours. Procalcitonin: No results found for: "PROCAL" COVID-19 PCR: No results for input(s): "COVID19" in the last 72 hours. Objective: Vitals: BP 146/97 (BP Location: Right arm, Patient Position: Sitting) Pulse 73 Temp (!) 35.8 C (96.4 F) (Temporal) Resp 15 Ht 5' 10" (1.778 m) Wt 117 lb 1 oz [...] by ID -S/p tunneled central line placement -RELIGIOUS LEADER follow, dysphagia diet -PT OT DC planning [...] MD Division of Hospital Medicine Inpatient Medical Services/[facility] Nephrology Progress Note Mr. Jun Sndyer is a 59-year-old male with a history [...] (Temporal) Resp 15 Ht 1.778 m (5' 10") Wt 53.1 kg (117 lb 1 oz) [...] status and labs. Please message me through [email or web address] chat with any questions or concerns. Wellington Nicole MD 01/30/2025 9:08 AM [facility] [address], [address] [place] [address] Office: [phone] Images from the original note were not included. Speech-Language Pathology SPEECH LANGUAGE PATHOLOGY [facility] Dysphagia Treatment Note Patient Name: Jun [...] like something to eat, after I get up" "What do you have" Pain: No current c/o pain. Some grimace when repositioning pt. PPE Worn: gloves Objective & Assessment Dysphagia Treatment # of Activities: 2 Dysphagia Activity 1: Education re: MBS results and swallowing strategies. Dysphagia Activity 2: Advanced diet textures as appropriate. Pt is very restless and confused. Does not recall going to dialysis today. "I had it yesterday" Multiple complaints and wanting to get out of bed. Scratching and picking continues. "I am supposed to get this out today" Pt accepted 2 bites of pudding. Slower [...] Expected End: 02/02/25 Resolved: 01/25/25 Therapy Time RELIGIOUS LEADER Individual Minutes Time In: 1438 Time Out: 1456 Minutes: 18 FRANKLIN Bailon Images from the original note were not included. [facility] - Infectious Diseases Attending Progress Note [...] 21 01/29/2025 0337 CREATININE 4.17 (H) 01/29/2025 033 CREATININE 9.99 (H) 10/27/2019 0545 GLUCOSE 80 [...] be of low complexity. Radha Yee MD [facility] Nephrology Progress Note Mr. Jun Snyder is [...] F) Resp 18 Ht 1.778 m (5' 10") Wt 53.1 kg (117 lb 1 oz) [...] Nicole MD 01/29/2025 10:13 AM [facility] [address], [address] [place] [address] Office: [phone] Images from the original note were not included. Hospitalist Progress Note 01/29/2025 Subjective: Admit Date: 01/19/2025 PCP: Leilani Troncoso Room#: 1C-144/1C-144 A Brief Hospital Summary: Jun Snyder is a 59 y.o. male who who presented to [facility] 01/19 after inadvertent removal of his tracheostomy. He was transferred to [facility] ICU for surgical evaluation. On arrival he [...] HD successfully. hemodynamically stable. Transferred out to [facility] 01/27 Interval History: No overnight issues. [...] History: Diagnosis Date Acute renal failure (ARF) ([facility]) 10/19/2019 Anemia 12/30/2021 Calcification of abdominal aorta ([facility]) 10/08/202309/[address] abd Diverticulosis 10/08/2023 ESRD on hemodialysis ([facility]) ([facility]) 10/26/2019 Hemodialysis patient ([facility]) ([facility]) HTN (hypertension) 12/01/2022 Hypertension IgA nephropathy [...] 13 17* LIVER PROFILE:No results for input(s): "AST", "ALT", "BILITOT", "ALKPHOS", "PROT" in the last 72 hours. No lab exists for component: LABALBU PT/INR: Recent Labs 01/27/25 0006 01/28/25 0516 01/29/25 0337 PROTIME 19.9* 21.9* 24.0* INR 1.9* 2.2* 2.4* CARDIAC ENZYMES: No results for input(s): "TROPONINI" in the last 72 hours. Procalcitonin: No results found for: "PROCAL" COVID-19 PCR: No results for input(s): "COVID19" in the last 72 hours. Encounter Date: 01/19/25 ECG 12 lead Result Value Heart Rate 93 QRSD Interval 113 QT Interval 413 QTC Interval 515 P Dalzell 69 QRS Dalzell 93 T Wave Dalzell 87 IA Interval 148 Impression Sinus rhythm Left atrial [...] C (98.4 F) Resp 18 Ht 5' 10" (1.778 m) Wt 117 lb 1 oz [...] sodium chloride 0.9 % 100 mL IVPB (Add-Arcanum), 3,000 mg, IntraVENous, q24h, Radha Yee MD, [...] q5 min PRN, Earlene Lozano APRN - SALVAGER, 5 mg at 01/25/25 1846 metoprolol tartrate (Lopressor) tablet 25 mg, 25 mg, Per G Tube, BID, Earlene Lozano APRN - SALVAGER, 25 mg at 01/28/25 2222 midodrine (Proamatine) [...] % infusion, 250 mL/hr, IntraVENous, PRN, Sangeeta Sanchess, DO warfarin (Coumadin) tablet 0.5 mg, 0.5 [...] by ID Ordered tunneled central line placement RELIGIOUS LEADER follow, dysphagia diet PT OT DC planning Past Medical History: Diagnosis Date Acute renal failure (ARF) ([facility]) 10/19/2019 Anemia 12/30/2021 Calcification of abdominal aorta ([facility]) 10/08/202309/[address] abd Diverticulosis 10/08/2023 ESRD on hemodialysis ([facility]) ([facility]) 10/26/2019 Hemodialysis patient ([facility]) ([facility]) HTN (hypertension) 12/01/2022 Hypertension IgA nephropathy IgA nephropathy determined by biopsy of kidney 10/26/2019 Missed vaccination due to patient refusal 10/08/2023 Has a number of non-scientific based beliefs which interfere with his understanding and acceptance of the medical benefit of vaccination. Nonrheumatic aortic valve stenosis 10/08/2023 Paroxysmal A-fib ([facility]) ([facility]) 08/18/2023 Tobacco abuse 10/08/2023 Plan As [...] MD Division of Hospitalist Medicine Inpatient Medical Services/[facility] Images from the original note were not included. [facility] Wound Care Progress Note Jun Snyder AGE: [...] diverticulosis, IgA nephropathy, severe that presented to [facility] ED from a facility due to trach dislodgement. Wound Care consulted for Pressure Injury sacrum and Ischemic ulcers to left toes" Patient resting in [place]. Patient refusing multiple attempts made by this service to change NPWT dressing. Transport at bedside attempting to take patient to dialysis to which patient is also refusing. Floor RN at bedside attempting to talk with patient. PAST MEDICAL HISTORY Past Medical History: Diagnosis Date Acute renal failure (ARF) ([facility]) 10/19/2019 Anemia 12/30/2021 Calcification of abdominal aorta ([facility]) 10/08/202309/[address] abd Diverticulosis 10/08/2023 ESRD on hemodialysis ([facility]) ([facility]) 10/26/2019 Hemodialysis patient ([facility]) ([facility]) HTN (hypertension) 12/01/2022 Hypertension IgA nephropathy IgA nephropathy determined by biopsy of kidney 10/26/2019 Missed vaccination due to patient refusal 10/08/2023 Has a number of non-scientific based beliefs which interfere with his understanding and acceptance of the medical benefit of vaccination. Nonrheumatic aortic valve stenosis 10/08/2023 Paroxysmal A-fib ([facility]) ([facility]) 08/18/2023 Tobacco abuse 10/08/2023 PAST SURGICAL HISTORY Past Surgical History: Procedure Laterality Date APPENDECTOMY CARDIAC CATHETERIZATION N/A 10/09/2024 Performed by Bob Watson MD at [facility] Cardiac Cath/EP Lab CARDIAC CATHETERIZATION Bilateral 11/01/2024 Performed by Bob Watson MD at [facility] Cardiac Cath/EP Lab CARDIAC CATHETERIZATION N/A 11/01/2024 Performed by Bob Watson MD at [facility] Cardiac Cath/EP Lab COLONOSCOPY N/A 01/24/2025 Performed by Chadd Davis MD at [facility] ENDOSCOPY FISTULAGRAM (HISTORICAL) Left 09/15/2021 LEFT UPPER ARM HX AV FISTULA CREATION IR EMBOLIZATION 10/14/2024 IR EMBOLIZATION 10/14/2024 [facility] SPECIAL PROCEDURES IR FISTULAGRAM 08/07/2022 IR FISTULAGRAM [...] Medication Sig Dispense Refill epoetin rowan-epbx (Retacrit) 53686 UNIT/ML injection Inject 0.79 mL (7,900 Units) [...] F) Resp 18 Ht 1.778 m (5' 10") Wt 53.1 kg (117 lb 1 oz) [...] (H) 01/29/2025 Prealbumin: No results found for: "PREALBUMIN" Albumin:No components found for: LABALBU Sed Rate:No [...] to follow Recommend to follow up at [facility] Outpatient wound care center after hospital discharge. Any questions or concerns please secure chat "ACH wound/ostomy". Thank you for the consult! I personally [...] Gill DO at 01/29/2025 4:37 PM EDT [facility] Anticoagulation Management Service ([facility]ILAJA) Inpatient Warfarin Consult HPI: Jun Snyder is a 59 y.o. male admitted on 01/19/2025 for Complication of tracheostomy ([facility]) ([facility]) [J95.00] Past Medical History: Diagnosis Date Acute renal failure (ARF) ([facility]) 10/19/2019 Anemia 12/30/2021 Calcification of abdominal aorta ([facility]) 10/08/202309/[address] abd Diverticulosis 10/08/2023 ESRD on hemodialysis ([facility]) ([facility]) 10/26/2019 Hemodialysis patient ([facility]) ([facility]) HTN (hypertension) 12/01/2022 Hypertension IgA nephropathy IgA nephropathy determined by biopsy of kidney 10/26/2019 Missed vaccination due to patient refusal 10/08/2023 Has a number of non-scientific based beliefs which interfere with his understanding and acceptance of the medical benefit of vaccination. Nonrheumatic aortic valve stenosis 10/08/2023 Paroxysmal A-fib ([facility]) ([facility]) 08/18/2023 Tobacco abuse 10/08/2023 Patient is [...] dose accordingly 3. Will facilitate f/u at [facility] upon discharge Fatuma Odonnell RPh SAILAJA is available daily [phone] via TruHearing Chat. If no response on TruHearing Chat then please page [phone]. [facility] Nephrology Progress Note Mr. Jun Snyder is [...] (Temporal) Resp 18 Ht 1.778 m (5' 10") Wt 52.6 kg (115 lb 15.4 oz) [...] status and labs. Please message me through [email or web address] chat with any questions or concerns. Wellington Nicole MD 01/28/2025 2:08 PM [facility] [address], [address] [place] [address] Office: [phone] Hospitalist Progress Note 01/28/2025 Subjective: Admit Date: 01/19/2025 PCP: Leilani Troncoso Room#: 1C-144/1C-144 A Brief Hospital Summary: Jun Snyder is a 59 y.o. male who who presented to [facility] 01/19 after inadvertent removal of his tracheostomy. He was transferred to [facility] ICU for surgical evaluation. On arrival he [...] HD successfully. hemodynamically stable. Transferred out to [facility] 01/27 Interval History: No overnight issues. [...] History: Diagnosis Date Acute renal failure (ARF) ([facility]) 10/19/2019 Anemia 12/30/2021 Calcification of abdominal aorta ([facility]) 10/08/202309/[address] abd Diverticulosis 10/08/2023 ESRD on hemodialysis ([facility]) ([facility]) 10/26/2019 Hemodialysis patient ([facility]) ([facility]) HTN (hypertension) 12/01/2022 Hypertension IgA nephropathy IgA nephropathy determined by biopsy of kidney 10/26/2019 Missed vaccination due to patient refusal 10/08/2023 Has a number of non-scientific based beliefs which interfere with his understanding and acceptance of the medical benefit of vaccination. Nonrheumatic aortic valve stenosis 10/08/2023 Paroxysmal A-fib ([facility]) ([facility]) 08/18/2023 Tobacco abuse 10/08/2023 LABS: CBC: Recent Labs 01/26/258 01/26/25 0952 01/27/25 0006 01/27/25 2147 01/28/25 [...] this interval not displayed. BMP: Recent Labs 01/26/258 01/27/25 0006 01/28/25 0632 NA 136 139 137 K 5.1 3.9 3.6 CL 100 99 98 CO2 20* 23 26 BUN 19 9 14 CREATININE 3.37* 2.27* 3.37* GLUCOSE 75 115* 82 CALCIUM 9.0 9.9 10.0 ANIONGAP 16* 17* 13 LIVER PROFILE:No results for input(s): "AST", "ALT", "BILITOT", "ALKPHOS", "PROT" in the last 72 hours. No lab exists for component: LABALBU PT/INR: Recent Labs 01/26/25 0248 01/27/25 0006 01/28/25 0516 PROTIME 18.3* 19.9* 21.9* INR 1.8* 1.9* 2.2* CARDIAC ENZYMES: No results for input(s): "TROPONINI" in the last 72 hours. Procalcitonin: No results found for: "PROCAL" COVID-19 PCR: No results for input(s): "COVID19" in the last 72 hours. Encounter Date: 01/19/25 ECG 12 lead Result Value Heart Rate 93 QRSD Interval 113 QT Interval 413 QTC Interval 515 P Dalzell 69 QRS Dalzell 93 T Wave Dalzell 87 IA Interval 148 Impression Sinus rhythm Left atrial [...] (96.8 F) (Temporal) Resp 13 Ht 5' 10" (1.778 m) Wt 115 lb 15.4 oz [...] sodium chloride 0.9 % 100 mL IVPB (Add-Arcanum), 3,000 mg, IntraVENous, q24h, Radha Yee MD, [...] q5 min PRN, Earlene Lozano APRN - SALVAGER, 5 mg at 01/25/25 1846 metoprolol tartrate (Lopressor) tablet 25 mg, 25 mg, Per G Tube, BID, Earlene Lozano APRN - SALVAGER, 25 mg at 01/28/25 0848 midodrine (Proamatine) [...] for sacral wound by ID PT OT RELIGIOUS LEADER follow, dysphagia diet Past Medical History: Diagnosis Date Acute renal failure (ARF) ([facility]) 10/19/2019 Anemia 12/30/2021 Calcification of abdominal aorta ([facility]) 10/08/202309/[address] abd Diverticulosis 10/08/2023 ESRD on hemodialysis ([facility]) ([facility]) 10/26/2019 Hemodialysis patient ([facility]) ([facility]) HTN (hypertension) 12/01/2022 Hypertension IgA nephropathy IgA nephropathy determined by biopsy of kidney 10/26/2019 Missed vaccination due to patient refusal 10/08/2023 Has a number of non-scientific based beliefs which interfere with his understanding and acceptance of the medical benefit of vaccination. Nonrheumatic aortic valve stenosis 10/08/2023 Paroxysmal A-fib ([facility]) ([facility]) 08/18/2023 Tobacco abuse 10/08/2023 Plan As [...] MD Division of Hospitalist Medicine Inpatient Medical Services/[facility] Anticoagulation Management Service ([facility]) Inpatient Warfarin Consult HPI: Jun Snyder is a 59 y.o. male admitted on 01/19/2025 for Complication of tracheostomy ([facility]) ([facility]) [J95.00] Past Medical History: Diagnosis Date Acute renal failure (ARF) ([facility]) 10/19/2019 Anemia 12/30/2021 Calcification of abdominal aorta ([facility]) 10/08/202309/[address] abd Diverticulosis 10/08/2023 ESRD on hemodialysis ([facility]) ([facility]) 10/26/2019 Hemodialysis patient ([facility]) ([facility]) HTN (hypertension) 12/01/2022 Hypertension IgA nephropathy IgA nephropathy determined by biopsy of kidney 10/26/2019 Missed vaccination due to patient refusal 10/08/2023 Has a number of non-scientific based beliefs which interfere with his understanding and acceptance of the medical benefit of vaccination. Nonrheumatic aortic valve stenosis 10/08/2023 Paroxysmal A-fib ([facility]) ([facility]) 08/18/2023 Tobacco abuse 10/08/2023 Patient is on warfarin for Afib, mechanical AVR and has a goal INR 2.0 - 3.0. Warfarin is currently managed by facility, has yet to be seen by [facility]. Pt's home dose of warfarin is not [...] dose accordingly 3. Will facilitate f/u at [facility] upon discharge Vu Guido PharmD [facility] is available daily [phone] via PenBlade. If no response on TruHearing Chat then please page [phone]. [facility] Anticoagulation Management Service ([facility]) Inpatient Warfarin Consult HPI: Jun Snyder is a 59 y.o. male admitted on 01/19/2025 for Complication of tracheostomy ([facility]) ([facility]) [J95.00] Past Medical History: Diagnosis Date Acute renal failure (ARF) ([facility]) 10/19/2019 Anemia 12/30/2021 Calcification of abdominal aorta ([facility]) 10/08/202309/[address] abd Diverticulosis 10/08/2023 ESRD on hemodialysis ([facility]) ([facility]) 10/26/2019 Hemodialysis patient ([facility]) ([facility]) HTN (hypertension) 12/01/2022 Hypertension IgA nephropathy IgA nephropathy determined by biopsy of kidney 10/26/2019 Missed vaccination due to patient refusal 10/08/2023 Has a number of non-scientific based beliefs which interfere with his understanding and acceptance of the medical benefit of vaccination. Nonrheumatic aortic valve stenosis 10/08/2023 Paroxysmal A-fib ([facility]) ([facility]) 08/18/2023 Tobacco abuse 10/08/2023 Patient is [...] dose accordingly 3. Will facilitate f/u at [facility] upon discharge Vu Guido PharmD [facility] is available daily [phone] via PenBlade. If no response on TruHearing Chat then please page [phone]. [facility] Respiratory Care Department Progress Note As [...] Respiratory in the care of this patient, [facility] Nephrology Progress Note Mr. Jun Snyder is [...] (Temporal) Resp 21 Ht 1.778 m (5' 10") Wt 52 kg (114 lb 10.2 oz) [...] last 7 days Lab Units 01/27/25 0006 01/26/25 0248 01/25/25 0251 MAGNESIUM mg/dL 1.9 2.0 2.1 Results from last 7 days Lab Units 01/27/25 0006 01/26/25205201/26/25 0952 01/26/25 0248 01/25/25 0953 01/25/25 0251 WBC AUTO 10*3/uL 10.0 [...] status and labs. Please message me through [email or web address] chat with any questions or concerns. Wellington Nicole MD 01/27/2025 7:11 AM [facility] [address] [place] [address], [address] [place] [address] Office: [phone] ICU Progress Note Name: Jun Adrianna GurrolaLillian : 1965(59 y.o.) Date: 01/27/25 Team: MICU Attending: DARRYN HIGGINS Subjective: Hospital Summary: Jun Snyder is a 59 y.o. male who who presented to [facility] 01/19 after inadvertent removal of his tracheostomy. He was transferred to [facility] ICU for surgical evaluation. On arrival he [...] (01/27/25321) 87 (01/27/25321) Arterial BP MAP (na) (01/26/25 0612) Temp 36.8 C (98.2 F) (01/27/25321) Pulse 85 (01/27/25321) Resp 20 (01/27/25321) SpO2 98 % (01/27/25321) Weight 52 kg (114 lb 10.2 oz) (01/27/25328) BMI Body mass index is 16.45 kg/m . I/O: 01/26 07 - 01/27 659 In: 861 [P.O.:200; I.V.:661] Out: 25 [Drains:25] [...] Normal [] Scar/Lesion/Mass Inspection of teeth/lips/gums Dentition: [x]Gambell Teeth []Dentures Lips/Gums: [x]Intact []Lesion Present Mucosa: [x]Emerald []Moist []Dry Neck: External Appearance Overall Appearance: [...] within last 24 hours- BMP: Recent Labs 01/25/2525001/26/25 02401/27/25 0006 NA 138 136 139 K 3.9 5.1 3.9 CL 98 100 99 CO2 24 20* 23 BUN 15 19 9 CREATININE 2.54* 3.37* 2.27* CALCIUM 10.1 9.0 9.9 MG 2.1 2.0 1.9 PHOS 3.9 5.3* 3.4 LFTs:No results for input(s): "AST", "ALT", "PROT", "ALBUMIN", "BILITOT", "BILIRUBINU", "ALKPHOS", "LIPASE" in the last 72 hours. Glucose: Recent Labs 01/24/25 1217 01/25/2525001/26/25 0248 01/27/25 0006 GLUCOSE 77 74 75 115* Procal: No results for input(s): "PROCAL" in the last 72 hours. CBC: Recent Labs 01/25/25 02501/25/25 0953 01/26/25 0248 01/26/25 0952 01/26/25205201/27/25 0006 WBC 10.2 -- 8.7 -- -- 10.0 HGB 7.0* < > 6.7* 8.9* 9.0* 9.0* HCT 22.5* < > 21.0* 28.4* 27.9* 28.3* PLT 285 -- 265 -- -- 273 MCV 88.6 -- 87.1 -- -- 86.8 RDW 19.2* -- 19.3* -- -- 19.1* < > = values in this interval not displayed. ABGs: No results for input(s): "PHART", "DWR6ZFK", "PO2ART", "ING1CMP", "SO2ART", "R4CMMEKQ" in the last 72 hours. Lactic Acid: Recent Labs 01/24/25 0830 LACTATE 0.9 INR: Recent Labs 01/25/25 0618 01/26/25 0248 01/27/25 0006 INR 1.7* 1.8* 1.9* Cardiac Injury Profile: No results for input(s): "CKTOTAL", "CKMB", "TROPONINI" in the last 72 hours. Labs in [...] (HCC) BRBPR (bright red blood per rectum) GIB [...] H/H and PT/INR q12 - Diet per RELIGIOUS LEADER recs Appreciate Recs: Pureed solids and Thin [...] apply Betadine and allow to dry, leave FELT COVERER daily and PRN - PVRs for circulation [...] HD MWF) HAGMA - improving Hypotension, chronic S/P HD, [...] and warfarin Disposition: Stable for Transfer to [facility] Cosigned by Darryn Higgins MD at [...] PT/OT - Remains stable for transfer to [facility]. Code Status: Full Code Disposition: ok for [facility] Time spent preparing to see the patient, obtaining/reviewing separately obtained history, completing an appropriate medical examination of the patient, ordering medications/tests/procedures, documenting clinical information on the EMR, and/or coordinating care is a subsequent visit: 35 minutes (Level II). Darryn Higgins MD Pulmonary and Critical Care Medicine Attending Pager #[phone] Images from the original note were not included. PHYSICAL THERAPY [facility] Name/MRN: Jair Snyder ([id number]) Date: 01/26/2025 Attempt Note Pt on iHD. Will re-attempt as able. Chantal Rossi PT [facility] Nephrology Progress Note Mr. Jun Snyder is [...] F) Resp 14 Ht 1.778 m (5' 10") Wt 58.9 kg (129 lb 13.6 oz) [...] Results from last 7 days Lab Units 01/26/258 01/25/25 0251 01/24/25 0429 MAGNESIUM mg/dL 2.0 2.1 2.3 Results from last 7 days Lab Units 01/26/25 0952 01/26/25 0248 01/25/25 1948 01/25/25 0953 01/25/25 0251 01/24/25 [...] concerns. Wellington Nicole MD 01/26/2025 1:55 PM [facility] [address] [place] [address], [address] [place] [address] Office: [phone] Speech-Language Pathology Pt is a hold at this time, as he is receiving dialysis. Will re-attempt next date as schedule permits. Treva Mccallum MS. CCC-RELIGIOUS LEADER ICU Transfer Checklist Hospital course: 59 y.o. male PMH trach s/p removal, peg, HTN, afib, ESRD on TTS HD, aortic stenosis s/p mechanical valve who presented to [facility] 01/19 after inadvertent removal of his tracheostomy. Transferred to [facility] ICU for surgical evaluation. On arrival he [...] convert to PO if able) None Anticipated [place] Medications (ICU initiated) or Dose Changes and Indication No Permanently Discontinued Home Medications and Reason for medication contraindication No Payne Catheter (please remove if able. Note: place DC order) No Central Line (please remove if able. Note: place DC order) No Transfer Discussed with: Dr. Russell [facility] If additional questions for ICU team within 24 hours of ICU transfer, page control clerk auditing ICU resident for clarifications. [facility] Anticoagulation Management Service ([facility]) Inpatient Warfarin Consult HPI: Jun Snyder is a 59 y.o. male admitted on 01/19/2025 for Complication of tracheostomy ([facility]) ([facility]) [J95.00] Past Medical History: Diagnosis Date Acute renal failure (ARF) ([facility]) 10/19/2019 Anemia 12/30/2021 Calcification of abdominal aorta ([facility]) 10/08/202309/[address] abd Diverticulosis 10/08/2023 ESRD on hemodialysis ([facility]) ([facility]) 10/26/2019 Hemodialysis patient ([facility]) ([facility]) HTN (hypertension) 12/01/2022 Hypertension IgA nephropathy IgA nephropathy determined by biopsy of kidney 10/26/2019 Missed vaccination due to patient refusal 10/08/2023 Has a number of non-scientific based beliefs which interfere with his understanding and acceptance of the medical benefit of vaccination. Nonrheumatic aortic valve stenosis 10/08/2023 Paroxysmal A-fib ([facility]) ([facility]) 08/18/2023 Tobacco abuse 10/08/2023 Patient is on warfarin for Afib, mechanical AVR and has a goal INR 2.0 - 3.0. Warfarin is currently managed by facility, has yet to be seen by [facility]. Pt's home dose of warfarin is not [...] dose accordingly 3. Will facilitate f/u at [facility] upon discharge Adalberto Deleon PharmD [facility] is available daily [phone] via PenBlade. If no response on TruHearing Chat then please page [phone]. Images from the original note were not included. [facility] - Infectious Diseases Attending Progress Note [...] 100 01/26/2025 0248 CO2 20 (L) 01/26/2025 024 BUN 19 01/26/2025 0248 CREATININE 3.37 (H) 01/26/2025 024 CREATININE 9.99 (H) 10/27/2019 0545 GLUCOSE 75 01/26/2025 024 CALCIUM 9.0 01/26/2025 024 PROT 7.6 01/22/2025 0419 BILITOT 0.9 01/22/2025 [...] original note were not included. [facility] Wound Care Progress Note Jun Snyder AGE: [...] diverticulosis, IgA nephropathy, severe that presented to [facility] ED from a facility due to trach dislodgement. Wound Care consulted for Pressure Injury sacrum and Ischemic ulcers to left toes" Patient resting in [place] with floor RN present at bedside. Wound vac changed at time of visit with patient tolerating well. Denies any needs. PAST MEDICAL HISTORY Past Medical History: Diagnosis Date Acute renal failure (ARF) ([facility]) 10/19/2019 Anemia 12/30/2021 Calcification of abdominal aorta ([facility]) 10/08/202309/[address] abd Diverticulosis 10/08/2023 ESRD on hemodialysis ([facility]) ([facility]) 10/26/2019 Hemodialysis patient ([facility]) ([facility]) HTN (hypertension) 12/01/2022 Hypertension IgA nephropathy IgA nephropathy determined by biopsy of kidney 10/26/2019 Missed vaccination due to patient refusal 10/08/2023 Has a number of non-scientific based beliefs which interfere with his understanding and acceptance of the medical benefit of vaccination. Nonrheumatic aortic valve stenosis 10/08/2023 Paroxysmal A-fib ([facility]) ([facility]) 08/18/2023 Tobacco abuse 10/08/2023 PAST SURGICAL HISTORY Past Surgical History: Procedure Laterality Date APPENDECTOMY CARDIAC CATHETERIZATION N/A 10/09/2024 Performed by Bob Watson MD at [facility] Cardiac Cath/EP Lab CARDIAC CATHETERIZATION Bilateral 11/01/2024 Performed by Bob Watson MD at [facility] Cardiac Cath/EP Lab CARDIAC CATHETERIZATION N/A 11/01/2024 Performed by Bob Watson MD at [facility] Cardiac Cath/EP Lab COLONOSCOPY N/A 01/24/2025 Performed by Chadd Davis MD at [facility] ENDOSCOPY FISTULAGRAM (HISTORICAL) Left 09/15/2021 LEFT UPPER ARM HX AV FISTULA CREATION IR EMBOLIZATION 10/14/2024 IR EMBOLIZATION 10/14/2024 [facility] SPECIAL PROCEDURES IR FISTULAGRAM 08/07/2022 IR FISTULAGRAM 08/07/2022 [facility] IR IMAGING TONSILLECTOMY (HISTORICAL) FAMILY HISTORY [...] Medication Sig Dispense Refill epoetin rowan-epbx (Retacrit) 75940 UNIT/ML injection Inject 0.79 mL (7,900 Units) [...] Resp (!) 10 Ht 1.778 m (5' 10") Wt 58.9 kg (129 lb 13.6 oz) [...] (H) 01/26/2025 Prealbumin: No results found for: "PREALBUMIN" Albumin:No components found for: LABALBU Sed Rate:No [...] apply Betadine and allow to dry, leave FELT COVERER daily and PRN -Recommend PVRs for circulation check Nutritional support Wound Care to follow Recommend to follow up at [facility] Outpatient wound care center after hospital discharge. Any questions or concerns please secure chat "ACH wound/ostomy". Thank you for the consult! I personally [...] 59 y.o. male who who presented to [facility] 01/19 after inadvertent removal of his tracheostomy. He was transferred to [facility] ICU for surgical evaluation. On arrival he [...] (01/25/252003) Objective: Last Vitals: BP MAP 122/79 (01/26/25 0400) 93 (01/26/25399) Arterial BP MAP (na) (01/26/25338) Temp 36.7 C (98 F) (01/26/25 0355) Pulse 83 (01/26/25 0400) Resp (!) 11 (01/26/25 040) SpO2 100 % (01/26/25 040) Weight 58.9 kg (129 lb 13.6 oz) [...] Normal [] Scar/Lesion/Mass Inspection of teeth/lips/gums Dentition: [x]Gambell Teeth []Dentures Lips/Gums: [x]Intact []Lesion Present Mucosa: [x]Emerald []Moist []Dry Neck: External Appearance Overall Appearance: [...] within last 24 hours- BMP: Recent Labs 01/24/2542801/24/25121601/25/25 0251 01/26/25 0248 NA 139 138 138 136 K 4.0 3.5 3.9 5.1 CL 98 100 98 100 CO2 21* 26 24 20* BUN 27* 9 15 19 CREATININE 3.62* 1.47* 2.54* 3.37* CALCIUM 10.2 9.3 10.1 9.0 MG 2.3 -- 2.1 2.0 PHOS 5.1* -- 3.9 5.3* LFTs:No results for input(s): "AST", "ALT", "PROT", "ALBUMIN", "BILITOT", "BILIRUBINU", "ALKPHOS", "LIPASE" in the last 72 hours. Glucose: Recent Labs 01/23/25 0626 01/23/25 2317 01/24/25 04201/24/25 1217 01/25/25 0251 01/26/25 0248 GLUCOSE -- -- 74 77 74 75 POCGLU 92 113* -- -- -- -- BHYDRXBUT -- -- 10.5* -- -- -- Procal: No results for input(s): "PROCAL" in the last 72 hours. CBC: Recent [...] not displayed. ABGs: No results for input(s): "PHART", "PTS8YMN", "PO2ART", "WGO4HHS", "SO2ART", "T9QKTZJH" in the last 72 hours. Lactic Acid: Recent Labs 01/24/25 0830 LACTATE 0.9 INR: Recent Labs 01/24/25 2348 01/25/25 0618 01/26/25 0248 INR 1.5* 1.7* 1.8* Cardiac Injury Profile: No results for input(s): "CKTOTAL", "CKMB", "TROPONINI" in the last 72 hours. Labs in [...] Plan: Principal Problem: Complication of tracheostomy (CMS/HCC) ([facility]) Active Problems: Severe malnutrition (CMS/HCC) ([facility]) BRBPR (bright red blood per rectum) [...] peripheral blood smear pending - Diet per RELIGIOUS LEADER recs - continue q12 H/H and PT/INR [...] apply Betadine and allow to dry, leave FELT COVERER daily and PRN - PVRs for circulation [...] on heparin and warfarin Disposition: Transfer to [facility] Cosigned by Darryn Higgins MD at [...] hemoglobin stable today. Stable for transfer to [facility]. Code Status: Full Code Disposition: Transfer to [facility] Time spent preparing to see the patient, obtaining/reviewing separately obtained history, completing an appropriate medical examination of the patient, ordering medications/tests/procedures, documenting clinical information on the EMR, and/or coordinating care is a subsequent visit: 35 minutes (Level II). Darryn Higgins MD Pulmonary and Critical Care Medicine Attending Pager #[phone] Images from the original note were not included. [facility] - Infectious Diseases Attending [...] Lab Results Component Value Date/Time NA 138 01/25/2025250 K 3.9 01/25/2025250 CL 98 01/25/2025250 CO2 24 01/25/2025250 BUN 15 01/25/2025250 CREATININE 2.54 (H) 01/25/2025250 CREATININE 9.99 (H) 10/27/2019 0545 GLUCOSE 74 01/25/2025250 CALCIUM 10.1 01/25/2025 025 PROT 7.6 01/22/2025 0419 BILITOT 0.9 01/22/2025 [...] stenosis s/p mechanical valve who presented to [facility] 01/19 after inadvertent removal of his tracheostomy. Transferred to [facility] ICU for surgical evaluation. On arrival he [...] convert to PO if able) None Anticipated [place] Medications (ICU initiated) or Dose Changes and Indication No Permanently Discontinued Home Medications and Reason for medication contraindication No Payne Catheter (please remove if able. Note: place DC order) No Central Line (please remove if able. Note: place DC order) No Transfer Discussed with: Dr. Russell [facility] If additional questions for ICU team within 24 hours of ICU transfer, page control clerk auditing ICU resident for clarifications. Images from the original note were not included. Speech-Language Pathology SPEECH LANGUAGE PATHOLOGY [facility] Modified Barium Swallow Study Patient Name: Jun Snyder Evaluation Date: 01/25/2025 Date of : 1965 Admission Date: 01/19/2025 2:13 AM Age: 59 y.o. Room/Bed: T3-321/T3-321 A IMPRESSION: The patient presents with moderate [...] swallow). Pt would benefit from skilled acute RELIGIOUS LEADER services to ensure diet tolerance, train swallow [...] History: Diagnosis Date Acute renal failure (ARF) ([facility]) 10/19/2019 Anemia 12/30/2021 Calcification of abdominal aorta ([facility]) 10/08/202309/[address] abd Diverticulosis 10/08/2023 ESRD on hemodialysis ([facility]) ([facility]) 10/26/2019 Hemodialysis patient ([facility]) ([facility]) HTN (hypertension) 12/01/2022 Hypertension IgA nephropathy IgA nephropathy determined by biopsy of kidney 10/26/2019 Missed vaccination due to patient refusal 10/08/2023 Has a number of non-scientific based beliefs which interfere with his understanding and acceptance of the medical benefit of vaccination. Nonrheumatic aortic valve stenosis 10/08/2023 Paroxysmal A-fib ([facility]) ([facility]) 08/18/2023 Tobacco abuse 10/08/2023 Past Surgical History: Past Surgical History: Procedure Laterality Date APPENDECTOMY CARDIAC CATHETERIZATION N/A 10/09/2024 Performed by Bob Watson MD at [facility] Cardiac Cath/EP Lab CARDIAC CATHETERIZATION Bilateral 11/01/2024 Performed by Bob Watson MD at [facility] Cardiac Cath/EP Lab CARDIAC CATHETERIZATION N/A 11/01/2024 Performed by Bob Watson MD at [facility] Cardiac Cath/EP Lab COLONOSCOPY N/A 01/24/2025 Performed by Chadd Davis MD at [facility] ENDOSCOPY FISTULAGRAM (HISTORICAL) Left 09/15/2021 LEFT UPPER ARM HX AV FISTULA CREATION IR EMBOLIZATION 10/14/2024 IR EMBOLIZATION 10/14/2024 [facility] SPECIAL PROCEDURES IR FISTULAGRAM 08/07/2022 IR FISTULAGRAM 08/07/2022 [facility] IR IMAGING TONSILLECTOMY (HISTORICAL) Admission Diagnosis: Patient Active Problem List Diagnosis Date Noted Severe malnutrition ([facility]) ([facility]) 01/19/2025 Complication of tracheostomy ([facility]) ([facility]) 01/19/2025 [facility] (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 01/12/2025 Acute respiratory failure with hypoxia ([facility]) [J96.01] 01/08/2025 Tracheostomy care ([facility]) [Z43.0] 01/08/2025 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[facility]) 01/08/2025 Sacral osteomyelitis ([facility]) ([facility]) 01/03/2025 Pneumonia of both lungs due to methicillin susceptible Staphylococcus aureus (MSSA) ([facility]) 01/01/2025 Leukocytosis 12/30/2024 Decubitus ulcer of sacral region, unstageable ([facility]) 12/30/2024 Peritonitis due to fungus ([facility]) 11/30/2024 History of abdominal surgery 11/30/2024 Leg DVT (deep venous thromboembolism), acute, left ([facility]) 11/30/2024 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, 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 of skin (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) 11/30/2024 Pleural effusion 11/28/2024 Gastric ulceration 2024 Atrial flutter, unspecified type ([facility]) 10/03/2024 RSV (acute bronchiolitis due to respiratory syncytial virus) 10/03/2024 Diverticulosis 10/08/2023 Nonrheumatic aortic valve stenosis 10/08/2023 Calcification of abdominal aorta ([facility]) 10/08/2023 Missed vaccination due to patient refusal 10/08/2023 Tobacco abuse 10/08/2023 Alcohol use disorder in remission 10/08/2023 Paroxysmal A-fib ([facility]) ([facility]) 08/18/2023 HTN (hypertension) 12/01/2022 ESRD on hemodialysis ([facility]) ([facility]) 10/26/2019 IgA nephropathy determined by biopsy of kidney 10/26/2019 BRBPR (bright red blood per rectum) 01/19/2025 Aortic stenosis 10/03/2024 Upper GI bleed 10/03/2024 S/P AVR 10/03/2024 Acute hypoxic respiratory failure ([facility]) 10/03/2024 Acute encephalopathy 10/03/2024 Pneumoperitoneum 10/03/2024 Anemia 12/30/2021 Pain: Pt denies any current pain. Reason for current admission: Patient is a 59 yo male with a PMH of Trach and peg, HTN, paroxysmal a-fib, R occipital ICH, Tobacco abuse, ARF - dialysis (TTS; LUE AVF), diverticulosis, IgA nephropathy, severe that presented to [facility] ED from a facility due to trach dislodgement. Per patient, was trying to disconnect his vent to transfer to another room but accidentally pulled out his tracheostomy. This event happened approximately 45 minutes before ED arrival. ED attempted to place tracheostomy tube back but were unsuccessful. Decision was made to transfer patient to [facility] ICU for further airway management and determine [...] Expected End: 02/02/25 Resolved: 01/25/25 Therapy Time RELIGIOUS LEADER Individual Minutes Time In: 1145 Time Out: 1205 Minutes: 20 Christina Nunez MA, CCC/RELIGIOUS LEADER [facility] Anticoagulation Management Service ([facility]) Inpatient Warfarin Consult HPI: Jun Snyder is a 59 y.o. male admitted on 01/19/2025 for Complication of tracheostomy (CMS/HCC) ([facility]) [J95.00] Past Medical History: Diagnosis Date Acute renal failure (ARF) ([facility]) 10/19/2019 Anemia 12/30/2021 Calcification of abdominal aorta ([facility]) 10/08/202309/[address] abd Diverticulosis 10/08/2023 ESRD on hemodialysis ([facility]) ([facility]) 10/26/2019 Hemodialysis patient ([facility]) ([facility]) HTN (hypertension) 12/01/2022 Hypertension IgA nephropathy IgA nephropathy determined by biopsy of kidney 10/26/2019 Missed vaccination due to patient refusal 10/08/2023 Has a number of non-scientific based beliefs which interfere with his understanding and acceptance of the medical benefit of vaccination. Nonrheumatic aortic valve stenosis 10/08/2023 Paroxysmal A-fib ([facility]) ([facility]) 08/18/2023 Tobacco abuse 10/08/2023 Patient is [...] dose accordingly 3. Will facilitate f/u at [facility] upon discharge Adalberto Deleon PharmD, PharmD [facility] is available daily [phone] via PenBlade. If no response on TruHearing Chat then please page [phone]. [facility] Nephrology Progress Note Mr. Jun Snyder is [...] (Temporal) Resp 17 Ht 1.778 m (5' 10") Wt 58.9 kg (129 lb 13.6 oz) [...] concerns. Wellington Nicole MD 01/25/2025 11:44 AM [facility] [address] [place] [address], [address] [place] [address] Office: [phone] Images from the original note were not [...] time - planning to eventually discharge to [facility] [place] - will forward chart to Palliative RN [...] AV replacement Supratherapeutic INR - [facility] [employer] valve in 09/2024 - coumadin held due to bleeding and supratherapeutic levels Chronic respiratory failure s/p tracheostomy Tracheostomy dislodgement - has been saturating well without trach on RA so has not been replaced Palliative Care Encounter - Code Status: Full Code - Jun Snyder has been seen in consultation by [facility] Palliative Care during their admission to [facility]. They currently have no uncontrolled symptoms [...] Palliative Care IDT members involved: Palliative Care Extension Work Director Discussed the plan of care with the [...] tube placement -- noted to have bile peritonitis" 11/28/24: transferred to [facility] He ended up developing sacral ulcer and osteomyelitis at [facility]. He then ended up dislodging his tracheostomy, and was brought to [facility] ED for further care. Palliative care consulted [...] much better. Planning to eventually discharge to [facility] [place]. Discussed trying to get palliative care to [...] child(rocky) Living status: SNF Work history: unknown [place] status: unknown Faith annette: Non-Pentec[employer]alism ROS: See palliative care ROS/ESAS below; All other systems were reviewed and are negative. [place] Symptom Assessment Score [place] Score Pain Score (if non-verbal, add .FLACC [...] (Temporal) Resp 17 Ht 1.778 m (5' 10") Wt 58.9 kg (129 lb 13.6 oz) [...] 59 y.o. male who who presented to [facility] 01/19 after inadvertent removal of his tracheostomy. He was transferred to [facility] ICU for surgical evaluation. On arrival he [...] 5-30 Units/kg/hr, Last Rate: 12 Units/kg/hr (01/24/25 165) sodium chloride, 20 mL/hr, Last Rate: 20 mL/hr (01/23/25 164) Objective: Last Vitals: BP MAP 124/74 (01/25/25 0429) 85 (01/25/25 0400) Arterial BP MAP Temp 37.1 C (98.7 F) (01/25/25 042) Pulse 97 (01/25/25 0413) Resp 16 (01/25/25 0413) SpO2 97 % (01/25/25 0413) Weight 58.9 kg (129 lb 13.6 oz) (01/19/25 0657) BMI Body mass index is 18.63 kg/m . I/O: 01/24 0700 - 01/25 06 In: 748 [I.V.:673] Out: 1 Ventilator: ETCO2 [...] Normal [] Scar/Lesion/Mass Inspection of teeth/lips/gums Dentition: [x]Gambell Teeth []Dentures Lips/Gums: [x]Intact []Lesion Present Mucosa: [x]Emerald []Moist []Dry Neck: External Appearance Overall Appearance: [...] 5.1* -- 3.9 LFTs:No results for input(s): "AST", "ALT", "PROT", "ALBUMIN", "BILITOT", "BILIRUBINU", "ALKPHOS", "LIPASE" in the last 72 hours. Glucose: Recent Labs 01/22/25 0554 01/22/25 1318 01/22/25 2357 01/23/25 0430 01/23/25 0626 01/23/25 2317 01/24/25 0429 01/24/25 1217 01/25/25 0251 GLUCOSE -- -- -- 80 -- -- 74 77 74 POCGLU 81 77 101* -- 92 113* -- -- -- BHYDRXBUT -- -- -- -- -- -- 10.5* -- -- Procal: No results for input(s): "PROCAL" in the last 72 hours. CBC: Recent Labs 01/23/25 1514 01/24/25 0610 01/24/25 1217 01/24/25 2348 01/25/25 0251 WBC 10.9* 11.5* -- -- 10.2 HGB 7.9* 7.9* 8.0* 7.3* 6.3* 7.0* HCT 25.3* 25.1* 27.0* 23.0* 20.4* 22.5* PLT 346 355 -- -- 285 MCV 89.4 94.1 -- -- 88.6 RDW 18.8* 19.4* -- -- 19.2* ABGs: No results for input(s): "PHART", "AAC0JLJ", "PO2ART", "UDK8CHO", "SO2ART", "D5TLGGYA" in the last 72 hours. Lactic Acid: Recent Labs 01/24/25 0830 LACTATE 0.9 INR: Recent Labs 01/24/25 0429 01/24/25 1217 01/24/25 2348 INR 1.5* 1.5* 1.5* Cardiac Injury Profile: No results for input(s): "CKTOTAL", "CKMB", "TROPONINI" in the last 72 hours. Labs in [...] Plan: Principal Problem: Complication of tracheostomy (CMS/HCC) ([facility]) Active Problems: Severe malnutrition (CMS/HCC) ([facility]) BRBPR (bright red blood per rectum) [...] peripheral blood smear pending - Diet per RELIGIOUS LEADER recs - continue q12 H/H and PT/INR [...] Prophylaxis: SCDs warfarin held Disposition: Transfer to [facility] Cosigned by Darryn Higgins MD at [...] and appropriate. If stable can transfer to [facility]. Code Status: Full Code Disposition: Transfer to [facility] Time spent preparing to see the patient, obtaining/reviewing separately obtained history, completing an appropriate medical examination of the patient, ordering medications/tests/procedures, documenting clinical information on the EMR, and/or coordinating care is a subsequent visit: 35 minutes (Level II). Darryn Higgins MD Pulmonary and Critical Care Medicine Attending Pager #[phone] Images from the original note were not included. [facility] - Infectious Diseases Advanced Practice Provider [...] -- -- -- -- 1.778 m (5' 10") 01/24/25 1311 107/57 -- -- 98 19 [...] 01/22 A baumannii screen: in process Previous ([facility]) 01/02- sacral wound cx- E faecalis (Amp-S), skin ila, Clostridium clostrioforme 01/01- blood cx- 2/2 NG 12/30- blood cx- 2/2 NGTD 12/30- sputum cx- MSSA, resp ila 12/25- blood cx- 2/2 negative 12/14- sputum cx- MSSA, resp ila 12/14- MRSA pcr- MSSA 12/11- sputum cx- MSSA, resp ila Previous ([facility]) 11/28- L pleural fluid- negative 11/16- abd [...] be of moderate complexity. Mikala MORAN PA-C [facility] Infectious Disease [facility] Nephrology Progress Note Mr. Jun Snyder is [...] F) Resp 19 Ht 1.778 m (5' 10") Wt 58.9 kg (129 lb 13.6 oz) [...] Lab Units 01/24/25 0429 01/23/25 0430 01/22/25 0419 MAGNESIUM mg/dL 2.3 2.1 2.6 Results from [...] concerns. Wellington Nicole MD 01/24/2025 3:17 PM [facility] [address], [address] [place] [address] Office: [phone] Nutrition Assessment Type and Reason for Visit: [...] pt was receiving and tolerating while at [facility]. Noted RELIGIOUS LEADER is following- trach remains out and pt stable without it. RELIGIOUS LEADER most recently recommended MBSS completion- will follow and monitor RELIGIOUS LEADER recs and need for adjustment in EN [...] the ICU after he initially presented to [facility] ED on 01/19/25 due to inadvertent removal of his tracheostomy, pt was transferred to [facility] ICU for surgical evaluation, on arrival he [...] and also left toes 1-4 arterial ulcers, RELIGIOUS LEADER remains following- yesterday noted recs to continue [...] able to be re-initiated as well as RELIGIOUS LEADER recs for possible diet advancement s/p MBSS. [...] NPO Anthropometric Measures: Height: 177.8 cm (5' 10") Current Body Weight: (no new weight to assess) Weight Source: Bed Scale Admission Body Weight: 58.5 kg (129 lb) (bedscale obtained 01/[address], no admit weight was obtained) Usual Body Weight: (per EPIC review --> 10/08/23: 207#, 11/12: 208#, 08/28: 206#, 10/04/24: 192#, 10/15: 207# bedscale, 10/31: 200#, 11/28: 161#, 01/18: 142#) [place] Body Weight (lbs) (Calculated): 166 lbs [place] Body Weight (Kg) (Calculated): 75 kg % [place] Body Weight (Calculated): 78.2 % BMI (kg/m2) [...] determine Dana El RD Contact: available via [employer] or *[phone] [facility] Anticoagulation Management Service (SAILAJA) Inpatient Warfarin Consult HPI: Jun Snyder is a 59 y.o. male admitted on 01/19/2025 for Complication of tracheostomy ([facility]) ([facility]) [J95.00] Past Medical History: Diagnosis Date Acute renal failure (ARF) ([facility]) 10/19/2019 Anemia 12/30/2021 Calcification of abdominal aorta ([facility]) 10/08/202309/[address] abd Diverticulosis 10/08/2023 ESRD on hemodialysis ([facility]) ([facility]) 10/26/2019 Hemodialysis patient ([facility]) ([facility]) HTN (hypertension) 12/01/2022 Hypertension IgA nephropathy IgA nephropathy determined by biopsy of kidney 10/26/2019 Missed vaccination due to patient refusal 10/08/2023 Has a number of non-scientific based beliefs which interfere with his understanding and acceptance of the medical benefit of vaccination. Nonrheumatic aortic valve stenosis 10/08/2023 Paroxysmal A-fib ([facility]) ([facility]) 08/18/2023 Tobacco abuse 10/08/2023 Patient is [...] dose accordingly 3. Will facilitate f/u at [facility] upon discharge Fatuma Odonnell RPh, PharmD SAILAJA is available daily [phone] via [employer]. If no response on [employer] Chat then please page [phone]. ICU Progress Note Name: Jun Snyder : 1965(59 y.o.) Date: 01/24/25 Team: MICU Attending: Dr. Higgins Subjective: Hospital Summary: Mr Snyder is a 59 year old male who presented to [facility] 01/19 after inadvertent removal of his tracheostomy. He was transferred to [facility] ICU for surgical evaluation. On arrival he [...] kg/m . I/O: 01/23 0700 - 01/24 0659 In: 4496 [I.V.:410] Out: - Ventilator: Oxygen [...] Normal [] Scar/Lesion/Mass Inspection of teeth/lips/gums Dentition: []Gambell Teeth []Dentures Lips/Gums: []Intact []Lesion Present Mucosa: [x]Emerald []Moist [x]Dry Neck: External Appearance Overall Appearance: [...] Labs 01/22/25 0419 01/23/25 0430 01/24/25 0429 NA 132* 140 139 K 4.4 3.4* [...] 113* -- Procal: No results for input(s): "PROCAL" in the last 72 hours. CBC: Recent Labs 01/23/25 04301/23/25 1514 01/24/25 0610 WBC 11.1* 10.9* 11.5* HGB 7.3* 7.9* 7.9* 8.0* HCT 23.4* 25.3* 25.1* 27.0* PLT 345 346 355 MCV 88.6 89.4 94.1 RDW 18.5* 18.8* 19.4* ABGs: No results for input(s): "PHART", "YIV4DBT", "PO2ART", "TFT7AQR", "SO2ART", "C0QBOSMR" in the last 72 hours. Lactic Acid: No results for input(s): "LACTATE" in the last 72 hours. INR: Recent Labs 01/23/25 0430 01/23/25 1514 01/24/25 0429 INR 2.0* 1.6* 1.5* Cardiac Injury Profile: No results for input(s): "CKTOTAL", "CKMB", "TROPONINI" in the last 72 hours. Labs in [...] 11/14/2024 Strep Ag: No results for input(s): "STREPPNEUMO" in the last 72 hours. Imaging- === [...] post scope if stable can transfer to [facility] tomorrow Code Status: Full Code Disposition: Remain in ICU Time spent preparing to see the patient, obtaining/reviewing separately obtained history, completing an appropriate medical examination of the patient, ordering medications/tests/procedures, documenting clinical information on the EMR, and/or coordinating care is a subsequent visit: 35 minutes (Level II). Darryn Higgins MD Pulmonary and Critical Care Medicine Attending Pager #[phone] [facility] Nephrology Progress Note Mr. Jun Snyder is [...] (Temporal) Resp 19 Ht 1.778 m (5' 10") Wt 58.9 kg (129 lb 13.6 oz) [...] CHLORIDE mmol/L 102 94* CO2 mmol/L 25 25 BUN mg/dL 22 53* CREATININE mg/dL [...] status and labs. Please message me through [email or web address] chat with any questions or concerns. Wellington Nicole MD 01/23/2025 5:03 PM [facility] [address] [place] [address], [address] [place] [address] Office: [phone] Images from the original note were not included. Speech-Language Pathology SPEECH LANGUAGE PATHOLOGY [facility] Dysphagia Treatment Note Patient Name: Jun Snyder Evaluation Date: 01/23/2025 Date of : 1965 Admission Date: 01/19/2025 2:13 AM Age: 59 y.o. Room/Bed: T3-321/T3-321 A Subjective Patient alert and cooperative. Seen upright in bed. Answers all basic questions with dysphonic vocal quality. Follows all basic commands. No visitors at bedside. Spoke with SWEETIE Foreman who cleared pt for treatment. Current Diet: [...] Start: 01/19/25 Expected End: 02/02/25 Therapy Time RELIGIOUS LEADER Individual Minutes Time In: 1315 Time Out: 1330 Minutes: 15 FRANKLIN Singh Images from the original note were not included. [facility] - Infectious Diseases Advanced Practice Provider [...] 4.4 3.4* CL 96* 94* 102 CO2 24 25 25 BUN 46* 53* 22 CREATININE 2.99* [...] 01/22 A baumannii screen: in process Previous ([facility]) 01/02- sacral wound cx- E faecalis (Amp-S), skin ila, Clostridium clostrioforme 01/01- blood cx- 2/2 NG 12/30- blood cx- 2/2 NGTD 12/30- sputum cx- MSSA, resp ila 12/25- blood cx- 2/2 negative 12/14- sputum cx- MSSA, resp ila 12/14- MRSA pcr- MSSA 12/11- sputum cx- MSSA, resp ila Previous ([facility]) 11/28- L pleural fluid- negative 11/16- abd [...] be of moderate complexity. Mikala MORAN PA-C [facility] Infectious Disease Images from the original note [...] (Temporal) Resp 19 Ht 1.778 m (5' 10") Wt 58.9 kg (129 lb 13.6 oz) [...] days Lab Units 01/23/25 0430 01/22/25 1539 01/22/259 WBC AUTO 10*3/uL 11.1* 10.6 10.6 HEMOGLOBIN g/dL 7.3* 7.4* 8.0* HEMATOCRIT % 23.4* 23.9* 25.1* PLATELETS 10*3/uL 345 292 330 Results from last 7 days Lab Units 01/23/25 0430 01/22/25 0419 01/21/25 0243 SODIUM mmol/L 140 132* 135* POTASSIUM mmol/L 3.4* 4.4 4.3 CHLORIDE mmol/L 102 94* 96* CO2 mmol/L BUN mg/dL 22 53* 46* CREATININE mg/dL 2.34* 4.18* 2.99* GLUCOSE mg/dL 80 70* 60* CALCIUM mg/dL 9.4 9.8 9.9 Results from last 7 days Lab Units 01/22/25 0419 ALK PHOS U/L 274* BILIRUBIN TOTAL mg/dL 0.9 BILIRUBIN DIRECT mg/dL 0.7* PROTEIN TOTAL g/dL 7.6 ALT U/L 44* AST U/L 51* No results found for: "LIPASE" Results from last 7 days Lab Units [...] (CMS/HCC) (HCC) Acute respiratory failure with hypoxia ([facility]) [J96.01] Tracheostomy care ([facility]) [Z43.0] 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[facility]) [facility] (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 Complication of tracheostomy (CMS/HCC) ([facility]) BRBPR (bright red blood per rectum) I have personally performed a face to face diagnostic evaluation on this patient. I have reviewed and agree with the care plan as documented above by my CERTIFIED FLEX ENDOSCOPE REPROCESSOR/PA-C. I personally discussed the review of systems [...] []SW/TCC []Other Total Care Time (combined between CERTIFIED FLEX ENDOSCOPE REPROCESSOR/PA-C and myself) throughout the day today was >= 35 minutes (including chart/data review/analysis, care coordination, and [id number] encounter), and was spent discussing/counseling the patient/family regarding the care plan for this patient. I examined the patient independently. I reviewed relevant data myself and may have also done so in the context of team rounds. A full chart review was performed. Ivett Buckley MD Division of Trauma Department of Surgery [facility] Images from the original note were not [...] sodium chloride 0.9 % 100 mL IVPB (Add-Arcanum), 3,000 mg, IntraVENous, q12h, Steve Lassiter MD, [...] (97 F) (Temporal) Resp 14 Ht 5' 10" (1.778 m) Wt 129 lb 13.6 oz [...] y.o.) Date: 01/23/25 Team: MICU Attending: Dr. Higigns Subjective: Hospital Summary: Mr Snyder is a 59 year old male who presented to [facility] 01/19 after inadvertent removal of his tracheostomy. He was transferred to [facility] ICU for surgical evaluation. On arrival he [...] Infusions: Objective: Last Vitals: BP MAP 127/71 (01/23/25599) 87 (01/23/25599) Arterial BP MAP Temp 36.1 C (97 F) (01/23/25 0400) Pulse 89 (01/23/25599) Resp 14 (01/23/25599) SpO2 97 % (01/23/25599) Weight 58.9 kg (129 lb 13.6 oz) (01/19/25656) BMI Body mass index is 18.63 kg/m . I/O: 01/22 07 - 01/23 659 In: 1491 [I.V.:758] Out: [...] Normal [] Scar/Lesion/Mass Inspection of teeth/lips/gums Dentition: []Gambell Teeth []Dentures Lips/Gums: []Intact []Lesion Present Mucosa: []Emerald []Moist []Dry Neck: External Appearance Overall Appearance: [...] within last 24 hours- BMP: Recent Labs 01/21/2524201/22/25 0419 01/23/25 0430 NA 135* 132* 140 [...] not displayed. Procal: No results for input(s): "PROCAL" in the last 72 hours. CBC: Recent Labs 01/22/2541801/22/25 1539 01/23/25 0430 WBC 10.6 10.6 11.1* HGB 8.0* 7.4* 7.3* HCT 25.1* 23.9* 23.4* PLT 330 292 345 MCV 86.9 88.8 88.6 RDW 18.6* 18.4* 18.5* ABGs: No results for input(s): "PHART", "EJN9EQR", "PO2ART", "BGL2DNZ", "SO2ART", "U8RMWYIA" in the last 72 hours. Lactic Acid: No results for input(s): "LACTATE" in the last 72 hours. INR: Recent Labs 01/22/25 1043 01/22/25 1538 01/23/25 0430 INR 5.5* 3.1* 2.0* Cardiac Injury Profile: No results for input(s): "CKTOTAL", "CKMB", "TROPONINI" in the last 72 hours. Labs in [...] 11/14/2024 Strep Ag: No results for input(s): "STREPPNEUMO" in the last 72 hours. Imaging- No new imaging in past 24 hours Assessment and Plan: Principal Problem: Complication of tracheostomy (CMS/HCC) ([facility]) Active Problems: Severe malnutrition (CMS/HCC) ([facility]) GI Bleed, worsened by Warfarin Non-bleeding duodenal [...] setting of GI bleed Disposition: Transfer to [facility] Cosigned by Darryn Higgins MD at [...] Pulmonary and Critical Care Medicine Attending Pager #[phone] [facility] Respiratory Care Department Progress Note As [...] the care of this patient, [facility] Nephrology Progress Note Mr. Jun Snyder is [...] F) Resp 21 Ht 1.778 m (5' 10") Wt 58.9 kg (129 lb 13.6 oz) [...] from last 7 days Lab Units 01/22/259 SODIUM mmol/L 132* POTASSIUM mmol/L 4.4 CHLORIDE mmol/L 94* CO2 mmol/L 25 BUN mg/dL 53* CREATININE mg/dL 4.18* CALCIUM mg/dL 9.8 PROTEIN TOTAL g/dL 7.6 BILIRUBIN TOTAL mg/dL 0.9 ALK PHOS U/L 274* ALT U/L 44* AST U/L 51* GLUCOSE mg/dL 70* Results from last 7 days Lab Units 01/22/25 04101/21/25 0243 01/20/25 0514 MAGNESIUM mg/dL 2.6 2.5 2.8* Results from last 7 days Lab Units 01/22/25 04101/21/25 2348 01/21/25 1452 01/21/25 0908 01/21/25 0243 [...] status and labs. Please message me through [email or web address] chat with any questions or concerns. Wellington Nicole MD 01/22/2025 3:30 PM [facility] [address] [place] [address], [address] [place] [address] Office: [phone] Images from the original note were not included. [facility] - Infectious Diseases Advanced Practice Provider [...] 105 18 96 % 01/22/25 1110 (!) / -- -- 101 22 96 % 01/22/25 [...] wound debrided to bone on 01/02 at [facility] (Cx with E faecalis and Clostridium). Sacral [...] be of moderate complexity. Mikala MORAN PA-C [facility] Infectious Disease Speech-Language Pathology Spoke with the RN. Patient remains decanulated and doing well on Room Air. Patient is currently NPO for GI. Will defer dysphagia plan of care until patient is cleared to resume TF or a PO diet. Christina Limon MS, CCC/RELIGIOUS LEADER Images from the original note were not [...] sodium chloride 0.9 % 100 mL IVPB (Add-Arcanum), 3,000 mg, IntraVENous, q12h, Steve Lassiter MD, [...] (98.2 F) (Temporal) Resp 15 Ht 5' 10" (1.778 m) Wt 129 lb 13.6 oz [...] 10/14/24 A. Fib s/p aortic valve replacement- 1/16/25, Coumadin, last dose suspected 01/18/25 at SNF [...] (Temporal) Resp 15 Ht 1.778 m (5' 10") Wt 58.9 kg (129 lb 13.6 oz) [...] Results from last 7 days Lab Units 01/22/2541801/21/25234701/21/25145101/21/25 0908 01/21/25 0243 WBC AUTO 10*3/uL 10.6 -- -- 9.2 10.1 HEMOGLOBIN g/dL 8.0* 7.7* 7.1* 8.0* 8.3* HEMATOCRIT % 25.1* 24.5* 22.4* 25.3* 27.3* PLATELETS 10*3/uL 330 -- -- 353 365 Results from last 7 days Lab Units 01/22/2541801/21/2524201/20/25 0514 SODIUM mmol/L 132* 135* 135* POTASSIUM mmol/L 4.4 4.3 4.8 CHLORIDE mmol/L 94* 96* 98 CO2 mmol/L 25 24 22 BUN mg/dL 53* 46* 91* CREATININE mg/dL 4.18* 2.99* 4.31* GLUCOSE mg/dL 70* 60* 68* CALCIUM mg/dL 9.8 9.9 9.2 Results from last 7 days Lab Units 01/22/25418 ALK PHOS U/L 274* BILIRUBIN TOTAL mg/dL 0.9 BILIRUBIN DIRECT mg/dL 0.7* PROTEIN TOTAL g/dL 7.6 ALT U/L 44* AST U/L 51* No results found for: "LIPASE" Results from last 7 days Lab Units 01/22/2541801/21/25 0243 01/20/25 0514 MAGNESIUM mg/dL 2.6 2.5 2.8* Results from last 7 days Lab Units 01/21/25234701/21/25 14501/19/25 0652 INR 8.1* 7.9* 2.7* Current Inpatient [...] DENIA Sutton 01/22/25 7:33 AM Cosigned by Ivtet Buckley MD at 01/23/2025 10:55 AM EDT Associated attestation - Ivett Buckley MD - 01/23/2025 10:55 AM EDT ATTENDING ADDENDUM Patient Active Problem List Diagnosis Anemia Paroxysmal A-fib ([facility]) ([facility]) HTN (hypertension) ESRD on hemodialysis ([facility]) ([facility]) IgA nephropathy determined by biopsy of kidney Diverticulosis Nonrheumatic aortic valve stenosis Calcification of abdominal aorta ([facility]) Missed vaccination due to patient refusal Tobacco abuse Alcohol use disorder in remission Atrial flutter, unspecified type ([facility]) RSV (acute bronchiolitis due to respiratory syncytial virus) Aortic stenosis Upper GI bleed S/P AVR Acute hypoxic respiratory failure ([facility]) Acute encephalopathy Pneumoperitoneum Gastric ulceration Severe malnutrition ([facility]) ([facility]) Pleural effusion Peritonitis due to fungus ([facility]) History of abdominal surgery Leg DVT (deep venous thromboembolism), acute, left ([facility]) 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, 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) 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[facility]) Leukocytosis Decubitus ulcer of sacral region, unstageable ([facility]) Pneumonia of both lungs due to methicillin susceptible Staphylococcus aureus (MSSA) ([facility]) Sacral osteomyelitis (CMS/HCC) (HCC) Acute respiratory failure with hypoxia ([facility]) [J96.01] Tracheostomy care ([facility]) [Z43.0] 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[facility]) [facility] (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 Complication of tracheostomy (CMS/HCC) ([facility]) I personally supervised the resident in [...] MD Division of Trauma Department of Surgery [facility] ICU Progress Note Name: Jun Snyder : 1965(59 y.o.) Date: 01/22/25 Team: MICU Attending: Dr. Higgins Subjective: Hospital Summary: Mr Snyder is a 59 year old male who presented to [facility] 01/19 after inadvertent removal of his tracheostomy. He was transferred to [facility] ICU for surgical evaluation. On arrival he [...] Normal [] Scar/Lesion/Mass Inspection of teeth/lips/gums Dentition: []Gambell Teeth []Dentures Lips/Gums: []Intact []Lesion Present Mucosa: [x]Emerald []Moist [x]Dry Neck: External Appearance Overall Appearance: [...] hours- BMP: Recent Labs 01/20/25 0514 01/21/253 01/22/25418 NA 135* 135* 132* K 4.8 4.3 4.4 CL 98 96* 94* CO2 BUN 91* 46* 53* CREATININE 4.31* 2.99* 4.18* CALCIUM 9.2 9.9 9.8 MG 2.8* 2.5 2.6 PHOS 6.1* 5.3* 6.8* LFTs: Recent Labs 04/28/25 0419 AST 51* ALT 44* PROT 7.6 ALBUMIN [...] not displayed. Procal: No results for input(s): "PROCAL" in the last 72 hours. CBC: Recent Labs 01/21/25 0243 01/21/25 0908 01/21/25 1452 01/21/258 01/22/25418 WBC 10.1 9.2 -- -- 10.6 HGB 8.3* 8.0* 7.1* 7.7* 8.0* HCT 27.3* 25.3* 22.4* 24.5* 25.1* PLT 365 353 -- -- 330 MCV 88.9 87.5 -- -- 86.9 RDW 18.6* 18.6* -- -- 18.6* ABGs: No results for input(s): "PHART", "IEM9VMG", "PO2ART", "ZZF2UCI", "SO2ART", "O7HYUFKI" in the last 72 hours. Lactic Acid: No results for input(s): "LACTATE" in the last 72 hours. INR: Recent Labs 01/19/25 0652 01/21/25 1452 01/21/252347 INR 2.7* 7.9* 8.1* Cardiac Injury Profile: No results for input(s): "CKTOTAL", "CKMB", "TROPONINI" in the last 72 hours. Labs in Last 3 months: Lab Results Component Value Date TSH 1.190 08/17/2023 INR 8.1 () 01/21/2025 Microbiology- Urine Cx: No results found [...] 11/14/2024 Strep Ag: No results for input(s): "STREPPNEUMO" in the last 72 hours. Imaging- === [...] Pulmonary and Critical Care Medicine Attending Pager #[phone] [facility] Progress Note SUBJECTIVE: Jun Snyder [...] sodium chloride 0.9 % 100 mL IVPB (Add-Arcanum), 3,000 mg, IntraVENous, q12h, Steve Lassiter MD, [...] injection, 40 mg, IntraVENous, BID, Chantell Hill, DO Phenylephrine HCl (Pressors) 1 MG/10ML injection - Pyxis ADS Override Pull, , , , [Held by provider] warfarin (Coumadin) tablet 2 mg, 2 mg, Oral, Daily, Steve Lassiter MD OBJECTIVE Physical BP 111/61 Pulse 84 Temp 36.9 C (98.4 F) (Temporal) Resp 16 Ht 1.778 m (5' 10") Wt 58.9 kg (129 lb 13.6 oz) [...] Problem List Diagnosis Date Noted Severe malnutrition ([facility]) ([facility]) 01/19/2025 Complication of tracheostomy ([facility]) (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) [J96.01] 01/08/2025 Tracheostomy care ([facility]) [Z43.0] 01/08/2025 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[facility]) 01/08/2025 Sacral osteomyelitis ([facility]) ([facility]) 01/03/2025 Pneumonia of both lungs due to methicillin susceptible Staphylococcus aureus (MSSA) ([facility]) 01/01/2025 Leukocytosis 12/30/2024 Decubitus ulcer of sacral region, unstageable ([facility]) 12/30/2024 Peritonitis due to fungus ([facility]) 11/30/2024 History of abdominal surgery 11/30/2024 Leg DVT (deep venous thromboembolism), acute, left ([facility]) 11/30/2024 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, 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 of skin (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) 11/30/2024 Pleural effusion 11/28/2024 Gastric ulceration 2024 Atrial flutter, unspecified type ([facility]) 10/03/2024 RSV (acute bronchiolitis due to respiratory syncytial virus) 10/03/2024 Diverticulosis 10/08/2023 Nonrheumatic aortic valve stenosis 10/08/2023 Calcification of abdominal aorta ([facility]) 10/08/2023 Missed vaccination due to patient refusal 10/08/2023 Tobacco abuse 10/08/2023 Alcohol use disorder in remission 10/08/2023 Paroxysmal A-fib ([facility]) ([facility]) 08/18/2023 HTN (hypertension) 12/01/2022 ESRD on hemodialysis ([facility]) ([facility]) 10/26/2019 IgA nephropathy determined by biopsy of kidney 10/26/2019 Aortic stenosis 10/03/2024 Upper GI bleed 10/03/2024 S/P AVR 10/03/2024 Acute hypoxic respiratory failure (HCC) 10/03/2024 Acute encephalopathy 10/03/2024 Pneumoperitoneum 10/03/2024 Anemia 12/30/2021 ASSESSMENT/PLAN: ESRD. HD MWF schedule Anemia. PRBC if Hb less than 7 GI bleed. Gastroenterology following Cindy Patel MD 01/21/2025 4:54 PM Family Communication Number Called: [phone] Name of Designated Family Brass Roller: Omar son I spoke with the individual listed above Family Brass Roller Updated on the Following: - Updated Omar that his father had moved to ICU for bedside scope - All questions answered and Omar appreciated the update Images from the original note were not included. Department of Internal Medicine Gastroenterology Progress Note SUBJECTIVE: GI following for "GI bleed, acute blood loss anemia". Upon entering room, pt with large volume [...] sodium chloride 0.9 % 100 mL IVPB (Add-Arcanum), 3,000 mg, IntraVENous, q12h, Steve Lassiter MD, [...] mg, Oral, q6h PRN, 2.5 mg at 01/20/256 OR oxyCODONE (Roxicodone) immediate release tablet 5 mg, 5 mg, Oral, q4h PRN, Steve Lassiter MD, 5 mg at 01/19/25 1150 pantoprazole (ProtoNix) 80 mg in sodium chloride 0.9 % 100 mL (0.8 mg/mL) infusion, 8 mg/hr, IntraVENous, Continuous, Inés Cotto PA-C, Last Rate: 10 mL/hr at 01/21/25 031, 8 mg/hr at 01/21/25317 [Held by provider] warfarin (Coumadin) tablet 2 mg, 2 mg, Oral, Daily, Steve Lassiter MD OBJECTIVE VITALS: BP 106/55 Pulse 87 Temp 36.5 C (97.7 F) (Temporal) Resp 16 Ht 5' 10" (1.778 m) Wt 129 lb 13.6 oz [...] 4.8 4.3 CL 95* 98 96* CO2 24 BUN 80* 91* 46* CREATININE 3.50* [...] Coumadin, last dose suspected 01/18/25 at SNF Acute Right occipital ICH- 10/22/24 ESRD on [...] proceed with planned procedure. Parth VASQUEZ Gastroenterology [facility] Progress Note SUBJECTIVE: Jun Snyder [...] sodium chloride 0.9 % 100 mL IVPB (Add-Arcanum), 3,000 mg, IntraVENous, q12h, Steve Lassiter MD, Last Rate: 200 mL/hr at 01/20/25 1743, 3,000 mg at 01/20/25 1743 collagenase 250 UNIT/GM ointment, , Topical, PRN, Steve Lassiter MD collagenase 250 UNIT/GM ointment, , Topical, Daily, Steve Lassiter MD, 1 Application at 01/19/25 1540 ipratropium-albuterol (Duo-Neb) 0.5-2.5 mg/3 mL nebulizer solution 3 mL, 3 mL, Nebulization, q8h, Setve Lassiter MD, 3 mL at 01/20/25 1611 [...] (Temporal) Resp 24 Ht 1.778 m (5' 10") Wt 58.9 kg (129 lb 13.6 oz) [...] List Diagnosis Date Noted Severe malnutrition (CMS/HCC) ([facility]) 01/19/2025 Complication of tracheostomy (CMS/HCC) ([facility]) 01/19/2025 [facility] (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 01/12/2025 Acute respiratory failure with hypoxia ([facility]) [J96.01] 01/08/2025 Tracheostomy care ([facility]) [Z43.0] 01/08/2025 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[facility]) 01/08/2025 Sacral osteomyelitis ([facility]) ([facility]) 01/03/2025 Pneumonia of both lungs due to methicillin susceptible Staphylococcus aureus (MSSA) ([facility]) 01/01/2025 Leukocytosis 12/30/2024 Decubitus ulcer of sacral region, unstageable ([facility]) 12/30/2024 Peritonitis due to fungus ([facility]) 11/30/2024 History of abdominal surgery 11/30/2024 Leg DVT (deep venous thromboembolism), acute, left ([facility]) 11/30/2024 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, 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 of skin (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) 11/30/2024 Pleural effusion 11/28/2024 Gastric ulceration 2024 Atrial flutter, unspecified type ([facility]) 10/03/2024 RSV (acute bronchiolitis due to respiratory syncytial virus) 10/03/2024 Diverticulosis 10/08/2023 Nonrheumatic aortic valve stenosis 10/08/2023 Calcification of abdominal aorta ([facility]) 10/08/2023 Missed vaccination due to patient refusal 10/08/2023 Tobacco abuse 10/08/2023 Alcohol use disorder in remission 10/08/2023 Paroxysmal A-fib ([facility]) ([facility]) 08/18/2023 HTN (hypertension) 12/01/2022 ESRD on hemodialysis ([facility]) ([facility]) 10/26/2019 IgA nephropathy determined by biopsy of kidney 10/26/2019 Aortic stenosis 10/03/2024 Upper GI bleed 10/03/2024 S/P AVR 10/03/2024 Acute hypoxic respiratory failure ([facility]) 10/03/2024 Acute encephalopathy 10/03/2024 Pneumoperitoneum 10/03/2024 Anemia 12/30/2021 ASSESSMENT/PLAN: ESRD. HD MWF schedule. HD today. See orders Anemia. PRBC if Hb less than 7 Later in the day dialysis had to be discontinued a little early due to GI bleed and other events. Will reassess tomorrow Cindy Patel MD 01/20/2025 5:52 PM Images from the original note were not included. OCCUPATIONAL THERAPY [facility] Initial Evaluation Name/MRN: Jair Snyder ([id number]) Evaluation Date: 01/20/2025 Date of : 1965 Admission Date: 01/19/2025 2:13 AM Age: 59 y.o. Room/Bed: [facility] A Discharge Recommendation: Custodial Facility Other: DME TBD Assessment IMPRESSION: Pt presents with noted deficits for OT eval. Pt tolerated OT eval fair, requires Max A for bed mobility, Mod-CGA for EOB sitting balance. Pt noted with decreased safety and insight, perseverative on transferring to and asking for a "big chair", despite decreased sitting balance and safety concerns addressed by therapist. Pt unable to progress to further functional transfer at this time, as activity unsafe. Pt is functioning below baseline and will continue to benefit from acute OT during hospitalization to progress towards PLOF and independence. Pt is recommended for SNF for planned discharge. Admitting Diagnosis: Complication of tracheostomy ([facility]) ([facility]) Performance Deficits /Impairments: Decreased Functional Mobility, [...] History: Diagnosis Date Acute renal failure (ARF) ([facility]) 10/19/2019 Anemia 12/30/2021 Calcification of abdominal aorta ([facility]) 10/08/202309/[address] abd Diverticulosis 10/08/2023 ESRD on hemodialysis ([facility]) ([facility]) 10/26/2019 Hemodialysis patient ([facility]) ([facility]) HTN (hypertension) 12/01/2022 Hypertension IgA nephropathy IgA nephropathy determined by biopsy of kidney 10/26/2019 Missed vaccination due to patient refusal 10/08/2023 Has a number of non-scientific based beliefs which interfere with his understanding and acceptance of the medical benefit of vaccination. Nonrheumatic aortic valve stenosis 10/08/2023 Paroxysmal A-fib ([facility]) ([facility]) 08/18/2023 Tobacco abuse 10/08/2023 Past Surgical History: Past Surgical History: Procedure Laterality Date APPENDECTOMY CARDIAC CATHETERIZATION N/A 10/09/2024 Performed by Bob Watson MD at [facility] Cardiac Cath/EP Lab CARDIAC CATHETERIZATION Bilateral 11/01/2024 Performed by Bob Watson MD at [facility] Cardiac Cath/EP Lab CARDIAC CATHETERIZATION N/A 11/01/2024 Performed by Bob Watson MD at [facility] Cardiac Cath/EP Lab FISTULAGRAM (HISTORICAL) Left 09/15/2021 LEFT UPPER ARM HX AV FISTULA CREATION IR EMBOLIZATION 10/14/2024 IR EMBOLIZATION 10/14/2024 [facility] SPECIAL PROCEDURES IR FISTULAGRAM 08/07/2022 IR FISTULAGRAM 08/07/2022 [facility] IR IMAGING TONSILLECTOMY (HISTORICAL) Admission Diagnosis: Patient Active Problem List Diagnosis Date Noted Severe malnutrition ([facility]) ([facility]) 01/19/2025 Complication of tracheostomy ([facility]) (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) [J96.01] 01/08/2025 Tracheostomy care ([facility]) [Z43.0] 01/08/2025 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[facility]) 01/08/2025 Sacral osteomyelitis ([facility]) ([facility]) 01/03/2025 Pneumonia of both lungs due to methicillin susceptible Staphylococcus aureus (MSSA) ([facility]) 01/01/2025 Leukocytosis 12/30/2024 Decubitus ulcer of sacral region, unstageable ([facility]) 12/30/2024 Peritonitis due to fungus ([facility]) 11/30/2024 History of abdominal surgery 11/30/2024 Leg DVT (deep venous thromboembolism), acute, left ([facility]) 11/30/2024 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, 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 of skin (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) 11/30/2024 Pleural effusion 11/28/2024 Gastric ulceration 2024 Atrial flutter, unspecified type ([facility]) 10/03/2024 RSV (acute bronchiolitis due to respiratory syncytial virus) 10/03/2024 Diverticulosis 10/08/2023 Nonrheumatic aortic valve stenosis 10/08/2023 Calcification of abdominal aorta ([facility]) 10/08/2023 Missed vaccination due to patient refusal 10/08/2023 Tobacco abuse 10/08/2023 Alcohol use disorder in remission 10/08/2023 Paroxysmal A-fib ([facility]) ([facility]) 08/18/2023 HTN (hypertension) 12/01/2022 ESRD on hemodialysis ([facility]) ([facility]) 10/26/2019 IgA nephropathy determined by biopsy of kidney 10/26/2019 Aortic stenosis 10/03/2024 Upper GI bleed 10/03/2024 S/P AVR 10/03/2024 Acute hypoxic respiratory failure (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 Per pt he came from [facility]. Pt unable to recall living situation prior to [facility], states "I've been in and out of places." Prior Level of Function Prior Level of [...] of Care supervision is transferred to a [facility] Therapy Services Occupational Therapist. Goals and/or treatment [...] diverticulosis, IgA nephropathy, severe that presented to [facility] ED from a facility due to trach dislodgement. Per patient, was trying to disconnect his vent to transfer to another room but accidentally pulled out his tracheostomy. This event happened approximately 45 minutes before ED arrival. ED attempted to place tracheostomy tube back but were unsuccessful. Decision was made to transfer patient to [facility] ICU for further airway management and determine if replacement tracheostomy is needed. Was observed at [facility] ICU initially and transferred to [facility] on 01/20. Noted removal of trach. [...] History: Diagnosis Date Acute renal failure (ARF) ([facility]) 10/19/2019 Anemia 12/30/2021 Calcification of abdominal aorta (HCC) 10/08/202309/[address] abd Diverticulosis 10/08/2023 ESRD on hemodialysis ([facility]) ([facility]) 10/26/2019 Hemodialysis patient ([facility]) ([facility]) HTN (hypertension) 12/01/2022 Hypertension IgA nephropathy IgA nephropathy determined by biopsy of kidney 10/26/2019 Missed vaccination due to patient refusal 10/08/2023 Has a number of non-scientific based beliefs which interfere with his understanding and acceptance of the medical benefit of vaccination. Nonrheumatic aortic valve stenosis 10/08/2023 Paroxysmal A-fib ([facility]) ([facility]) 08/18/2023 Tobacco abuse 10/08/2023 LABS: CBC: [...] 15* 15* LIVER PROFILE:No results for input(s): "AST", "ALT", "BILITOT", "ALKPHOS", "PROT" in the last 72 hours. No lab exists for component: LABALBU PT/INR: Recent Labs 01/18/25 0238 01/19/25 0652 PROTIME 21.1* 26.6* INR 2.1* 2.7* CARDIAC ENZYMES: No results for input(s): "TROPONINI" in the last 72 hours. Procalcitonin: No results found for: "PROCAL" COVID-19 PCR: No results for input(s): "COVID19" in the last 72 hours. Objective: Vitals: BP 103/58 Pulse 91 Temp (!) 35.9 C (96.7 F) Resp 16 Ht 5' 10" (1.778 m) Wt 129 lb 13.6 oz [...] and limit nighttime disturbances - DVT prophylaxis: encoura [facility] 02-01-2025 Note [facility] 02-01-2025 Hospital course Narrative Discharge Summary Jun Snyder : 1965 ADMIT DATE: 01/19/2025 DISCHARGE DATE: 02/01/2025 PRIMARY CARE PHYSICIAN: Leilani Troncoso VISIT STATUS: Admission CODE STATUS: Full Code DISCHARGE DIAGNOSES: Principal Problem: Complication of tracheostomy (CMS/HCC) (HCC) Active Problems: Severe malnutrition (CMS/HCC) (HCC) BRBPR (bright red blood per rectum) HOSPITAL COURSE: Jun Snyder is a 59 y.o. male who who presented to [facility] 01/19 after inadvertent removal of his tracheostomy. He was transferred to [facility] ICU for surgical evaluation. On arrival he [...] line on 01/29 Nephrology following, on dialysis RELIGIOUS LEADER following PT/OT recommends SNF Patient will be [...] History: Diagnosis Date Acute renal failure (ARF) ([facility]) 10/19/2019 Anemia 12/30/2021 Calcification of abdominal aorta ([facility]) 10/08/202309/[address] abd Diverticulosis 10/08/2023 ESRD on hemodialysis ([facility]) ([facility]) 10/26/2019 Hemodialysis patient ([facility]) ([facility]) HTN (hypertension) 12/01/2022 Hypertension IgA nephropathy IgA nephropathy determined by biopsy of kidney 10/26/2019 Missed vaccination due to patient refusal 10/08/2023 Has a number of non-scientific based beliefs which interfere with his understanding and acceptance of the medical benefit of vaccination. Nonrheumatic aortic valve stenosis 10/08/2023 Paroxysmal A-fib ([facility]) ([facility]) 08/18/2023 Tobacco abuse 10/08/2023 Adult diet [...] 2.0* CARDIAC ENZYMES: No results for input(s): "TROPONINI" in the last 72 hours. Procalcitonin: No results found for: "PROCAL" COVID-19 PCR: No results for input(s): "COVID19" in the last 72 hours. Objective: Vitals: BP 138/61 (BP Location: Right arm, Patient Position: Sitting) Pulse 74 Temp 36.2 C (97.2 F) (Temporal) Resp 16 Ht 5' 10" (1.778 m) Wt 101 lb 10.1 oz [...] 20 mL/hr, Last Rate: 20 mL/hr (01/30/25 2779) Assessment Data: (CAT1) Reviewed 2 notes from [...] by ID -S/p tunneled central line placement -RELIGIOUS LEADER follow, dysphagia diet -PT OT DC recommend SNF SIGNIFICANT DIAGNOSTIC STUDIES: IR cvc tunneled central line placement [[id number]] Collected: 01/30/25 143 Order Status: Completed Updated: [...] Report Dictated on Electronically Signed By: Jun Borrreo DR Electronically Signed Date/Time: 01/30/2025 2:37 PM EDT FL modified barium with video and speech [[id number]] Collected: 01/25/25 1328 Order Status: Completed Updated: [...] 3:12 PM EDT XR chest 1 view [[id number]] Collected: 01/24/25 0158 Order Status: Completed Updated: [...] pelvis angiogram w and/or wo IV contrast [[id number]] Collected: 01/20/25 184 Order Status: Completed Updated: 01/20/251902 Narrative: Patient Name[facility] JUN SNYDER [facility] 1965 [id number] Exam Date/Time: 01/20/2025 17:02 Procedure: CT ABDOMEN [...] 7:02 PM EDT XR chest 1 view [[id number]] Collected: 01/19/25614 Order Status: Completed Updated: 01/19/25616 [...] 6:16 AM EDT XR chest 1 view [[id number]] Collected: 01/18/25 1242 Order Status: Completed Updated: [...] days. CONTINUE taking these medications epoetin rowan-epbx [id number] UNIT/ML injection Commonly known as: Retacrit Inject [...] Complexity: follow up within 7-14 calendar days (94997) [] Severe Complexity: follow up within 7 calendar days (32005) FOLLOW UP TESTING, PENDING RESULTS OR REFERRALS AT TRANSITIONAL CARE VISIT: [] Yes [] No PENDING STUDIES: DISPOSITION: Skilled Facility FACILITY/HOME CARE AGENCY NAME: Follow up with [facility] [address] [facility] [phone] Gurdeep Cruz MD [address] [place] [address], [place] [address] [facility] [id number] Schedule an appointment as soon as possible [...] 02/01/2025, 10:29 AM documented in this encounter [facility] 01-30-2025 Note Patient receiving ot her care, will attempt smoking cessation counseling at a later date. [facility] 01-30-2025 Note Problem: Pain - Adul t Goal: Verbalizes/displays adequate comfort level or baseline comfort level Outcome: Progressing Problem: Safety - Adult Goal: Free from fall injury Outcome: Progressing [facility] 01-29-2025 Telephone encount er Note Chart reviewed, patient appears to be sensitive to warfarin at this time and I wouldn't be able to guarantee INR remains less than 3, so opted to hold dose today. I canceled order. [facility] Work Phone: 01-29-2025 Miscellaneous Notes Formattin g of this note might be different from the original. Chart reviewed, patient appears to be sensitive to warfarin at this time and I wouldn't be able to guarantee INR remains less than 3, so opted to hold dose today. I canceled order. SWEETIE Singh with [facility] [employer] called to inform [facility] patient is scheduled to have a tunnel cath line tomorrow and Dr. Lira is inquiring if patient should hold his warfarin 0.[address] Lira does not want INR to go above to 3.0 tomorrow. Staffed with Natali Richter, PERI, EMMANUEL, she will cancel patient's warfarin dose tomorrow and SAILAJA will make adjustments as needed tomorrow. documented in this encounter [facility] 01-29-2025 Telephone encount er Note SWEETIE Singh with [facility] [employer] called to inform [facility] patient is scheduled to have a tunnel cath line tomorrow and Dr. Lira is inquiring if patient should hold his warfarin 0.[address] Lira does not want INR to go above to 3.0 tomorrow. Staffed with Natali Richter, PERI, EMMANUEL, she will cancel patient's warfarin dose tomorrow and SAILAJA will make adjustments as needed tomorrow. [facility] 01-26-2025 Hospital Discharg e instructions Kristine [...] 10/09/2024 Performed by Bob Watson MD at [facility] Cardiac Cath/EP Lab CARDIAC CATHETERIZATION Bilateral 11/01/2024 Performed by Bob Watson MD at [facility] Cardiac Cath/EP Lab CARDIAC CATHETERIZATION N/A 11/01/2024 Performed by Bob Watson MD at [facility] Cardiac Cath/EP Lab COLONOSCOPY N/A 01/24/2025 Performed by Chadd Davis MD at [facility] ENDOSCOPY FISTULAGRAM (HISTORICAL) Left 09/15/2021 LEFT UPPER ARM HX AV FISTULA CREATION IR EMBOLIZATION 10/14/2024 IR EMBOLIZATION 10/14/2024 [facility] SPECIAL PROCEDURES IR FISTULAGRAM 08/07/2022 IR FISTULAGRAM 08/07/2022 [facility] IR IMAGING TONSILLECTOMY (HISTORICAL) Immunization History: [...] (CMS/HCC) (HCC) Acute respiratory failure with hypoxia ([facility]) [J96.01] Tracheostomy care ([facility]) [Z43.0] 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) Acute encephalopathy Pneumoperitoneum BRBPR (bright red blood per rectum) Isolation/Infection: No active isolations No active infections Nurse Assessment: Last Vital Signs: BP 142/80 Pulse 84 Temp 36.5 C (97.7 F) Resp 14 Ht 1.778 m (5' 10") Wt 58.9 kg (129 lb 13.6 oz) [...] Total assistance Toileting Total assistance Feeding Independent Rivet 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 Independent Med Delivery yes Wound Care Documentation and Therapy: Wound/Incision 11/13/24 Pressure Injury Sacrum (Active) Wound Image 01/19/25 0500 Site Assessment Emerald;Red 01/26/25 1200 Mahnaz-Wound Assessment Intact 01/26/25 0355 [...] Date: 01/21/25 Discharging to Facility/ Agency Name: [facility] Address: [address] [place] [address] Fax: Dialysis Facility (if applicable) Name: Address: Dialysis Schedule: [facility] Phone: Fax: Clerical Associate/Extension Work Director signature: ICIAN SECTION Name: Jun Snyder Prognosis: fair Condition at Discharge: stable Rehab Potential (if transferring to Rehab): fair Recommended Labs or Other Treatments After Discharge: cbc,cmp, PT/INR for warfarin, C/W Ampicillin-Sulbactam till 02/13, F/U with ID The individual is being admitted to a nursing facility directly from an [facility] or a unit of a community health systems that is not operated by or licensed by [facility] under section 5119.14 or 5160-3-15.1 5 The individual requires the level of services provided by a nursing facility for the condition for which he or she was treated in the hospital and, Physician Certification: I certify the above information and transfer of Jun Snyder is necessary for the continuing treatment of the diagnosis listed and that he requires fci facility for less than 30 days. Update Admission H&P: No change in H&P PHYSICIAN SIGNATURE: documented in this encounter [facility] 01-24-2025 Note [facility] 01-24-2025 Procedure note Images from the original [...] Safety: The patient was placed on a secured entrance monitor and vital signs, pulse oximetry, and level [...] of the procedure. documented in this encounter [facility] 01-23-2025 Consult note Associated Order (s): INPATIENT CONSULT TO WOUND CARE PROVIDERS Images from the original note were not included. [facility] Wound Care Re-CONSULT Note Jun Snyder AGE: [...] diverticulosis, IgA nephropathy, severe that presented to [facility] ED from a facility due to trach dislodgement. Wound Care consulted for Pressure Injury sacrum and Ischemic ulcers to left toes" Patient resting in envella. Wound vac applied at time of visit with patient tolerating well. Denies any needs. No VAC orders in place at time of visit, Wound care service will place orders and manage VAC at this time. PAST MEDICAL HISTORY Past Medical History: Diagnosis Date Acute renal failure (ARF) ([facility]) 10/19/2019 Anemia 12/30/2021 Calcification of abdominal aorta ([facility]) 10/08/202309/[address] abd Diverticulosis 10/08/2023 ESRD on hemodialysis ([facility]) ([facility]) 10/26/2019 Hemodialysis patient ([facility]) ([facility]) HTN (hypertension) 12/01/2022 Hypertension IgA nephropathy IgA nephropathy determined by biopsy of kidney 10/26/2019 Missed vaccination due to patient refusal 10/08/2023 Has a number of non-scientific based beliefs which interfere with his understanding and acceptance of the medical benefit of vaccination. Nonrheumatic aortic valve stenosis 10/08/2023 Paroxysmal A-fib ([facility]) ([facility]) 08/18/2023 Tobacco abuse 10/08/2023 PAST SURGICAL HISTORY Past Surgical History: Procedure Laterality Date APPENDECTOMY CARDIAC CATHETERIZATION N/A 10/09/2024 Performed by Bob Watson MD at [facility] Cardiac Cath/EP Lab CARDIAC CATHETERIZATION Bilateral 11/01/2024 Performed by Bob Watson MD at [facility] Cardiac Cath/EP Lab CARDIAC CATHETERIZATION N/A 11/01/2024 Performed by Bob Watson MD at [facility] Cardiac Cath/EP Lab FISTULAGRAM (HISTORICAL) Left 09/15/2021 LEFT UPPER ARM HX AV FISTULA CREATION IR EMBOLIZATION 10/14/2024 IR EMBOLIZATION 10/14/2024 [facility] SPECIAL PROCEDURES IR FISTULAGRAM 08/07/2022 IR FISTULAGRAM 08/07/2022 [facility] IR IMAGING TONSILLECTOMY (HISTORICAL) FAMILY HISTORY [...] Medication Sig Dispense Refill epoetin rowan-epbx (Retacrit) 70443 UNIT/ML injection Inject 0.79 mL (7,900 Units) [...] (Temporal) Resp 17 Ht 1.778 m (5' 10") Wt 58.9 kg (129 lb 13.6 oz) [...] (H) 01/23/2025 Prealbumin: No results found for: "PREALBUMIN" Albumin:No components found for: LABALBU Sed Rate:No [...] apply Betadine and allow to dry, leave FELT COVERER daily and PRN -Recommend PVRs for circulation check Nutritional support Wound Care to follow Recommend to follow up at [facility] Outpatient wound care center after hospital discharge. Any questions or concerns please secure chat "ACH wound/ostomy". Thank you for the consult! I personally [...] Gill DO at 01/29/2025 4:37 PM EDT [facility] Anticoagulation Management Service ([facility]) Inpatient Warfarin Consult HPI: Jun Snyder is a 59 y.o. male admitted on 01/19/2025 for Complication of tracheostomy ([facility]) ([facility]) [J95.00] Past Medical History: Diagnosis Date Acute renal failure (ARF) ([facility]) 10/19/2019 Anemia 12/30/2021 Calcification of abdominal aorta ([facility]) 10/08/202309/[address] abd Diverticulosis 10/08/2023 ESRD on hemodialysis ([facility]) ([facility]) 10/26/2019 Hemodialysis patient ([facility]) ([facility]) HTN (hypertension) 12/01/2022 Hypertension IgA nephropathy [...] facility, has yet to be seen by [facility]. Pt's home dose of warfarin is not [...] and plan for colonoscopy tomorrow, please notify [facility] when able to resume anticoagulation. 2. Monitor for s/s of bleeding and drug interactions. Will adjust dose accordingly 3. Will facilitate f/u at [facility] upon discharge Fatuma Odonnell RPh, PharmD [facility] is available daily [phone] via PenBlade. If no response on TruHearing Chat then please page [phone]. Images from the original note were not [...] AV replacement Supratherapeutic INR - [facility] Front End Mechanic valve in 09/2024 - coumadin held due [...] Palliative Care IDT members involved: Palliative Care Extension Work Director Discussed the plan of care with the [...] tube placement -- noted to have bile peritonitis" 11/28/24: transferred to [facility] He ended up developing sacral ulcer and osteomyelitis at [facility]. He then ended up dislodging his tracheostomy, and was brought to [facility] ED for further care. Palliative care consulted [...] the last several months, with being in [facility] and now back into the hospital. I [...] status: SNF Work history: unknown status: unknown Faith annette: Non-Pentecostalism ROS: See palliative care ROS/ESAS below; All other systems were reviewed and are negative. [place] Symptom Assessment Score [place] Score Pain Score (if non-verbal, add .FLACC [...] History: Diagnosis Date Acute renal failure (ARF) ([facility]) 10/19/2019 Anemia 12/30/2021 Calcification of abdominal aorta ([facility]) 10/08/202309/[address] abd Diverticulosis 10/08/2023 ESRD on hemodialysis ([facility]) ([facility]) 10/26/2019 Hemodialysis patient ([facility]) ([facility]) HTN (hypertension) 12/01/2022 Hypertension IgA nephropathy IgA nephropathy determined by biopsy of kidney 10/26/2019 Missed vaccination due to patient refusal 10/08/2023 Has a number of non-scientific based beliefs which interfere with his understanding and acceptance of the medical benefit of vaccination. Nonrheumatic aortic valve stenosis 10/08/2023 Paroxysmal A-fib ([facility]) ([facility]) 08/18/2023 Tobacco abuse 10/08/2023 Past Surgical History: Procedure Laterality Date APPENDECTOMY CARDIAC CATHETERIZATION N/A 10/09/2024 Performed by Bob Watson MD at [facility] Cardiac Cath/EP Lab CARDIAC CATHETERIZATION Bilateral 11/01/2024 Performed by Bob Watson MD at [facility] Cardiac Cath/EP Lab CARDIAC CATHETERIZATION N/A 11/01/2024 Performed by Bob Watson MD at [facility] Cardiac Cath/EP Lab FISTULAGRAM (HISTORICAL) Left 09/15/2021 LEFT UPPER ARM HX AV FISTULA CREATION IR EMBOLIZATION 10/14/2024 IR EMBOLIZATION 10/14/2024 [facility] SPECIAL PROCEDURES IR FISTULAGRAM 08/07/2022 IR FISTULAGRAM 08/07/2022 [facility] IR IMAGING TONSILLECTOMY (HISTORICAL) Family History Problem Relation Name Age of Onset No Known Problems Mother No Known Problems Father Unable to obtain family history due to N/A- family history available Allergies Allergen Reactions Lisinopril Swelling and Angioedema Objective: BP 120/66 Pulse 96 Temp 37.1 C (98.7 F) Resp 13 Ht 1.778 m (5' 10") Wt 58.9 kg (129 lb 13.6 oz) [...] Transition Note Initiated: yes Tex Cotto MD [facility] Anticoagulation Management Service ([facility]) Inpatient Warfarin Consult HPI: Jun Snyder is a 59 y.o. male admitted on 01/19/2025 for Complication of tracheostomy ([facility]) ([facility]) [J95.00] Past Medical History: Diagnosis Date Acute renal failure (ARF) ([facility]) 10/19/2019 Anemia 12/30/2021 Calcification of abdominal aorta (HCC) 10/08/202309/[address] abd Diverticulosis 10/08/2023 ESRD on hemodialysis ([facility]) ([facility]) 10/26/2019 Hemodialysis patient ([facility]) ([facility]) HTN (hypertension) 12/01/2022 Hypertension IgA nephropathy IgA nephropathy determined by biopsy of kidney 10/26/2019 Missed vaccination due to patient refusal 10/08/2023 Has a number of non-scientific based beliefs which interfere with his understanding and acceptance of the medical benefit of vaccination. Nonrheumatic aortic valve stenosis 10/08/2023 Paroxysmal A-fib ([facility]) ([facility]) 08/18/2023 Tobacco abuse 10/08/2023 Patient is on warfarin for Afib, mechanical AVR and has a goal INR 2.0 - 3.0. Warfarin is currently managed by facility, has yet to be seen by [facility]. Pt's home dose of warfarin is not yet established, managed by facility. S/sx of bleeding= GIB, anemia Interacting medications= Labs: Recent Labs 01/21/25 0243 01/21/25 0908 01/21/25 1452 01/21/25 2348 01/22/25 0419 HGB 8.3* 8.0* 7.1* 7.7* 8.0* HCT 27.3* 25.3* 22.4* 24.5* 25.1* PLT 365 353 -- -- 330 Recent Labs 01/21/258 INR 8.1* Date INR Dose 01/22 8.1 HOLD vitamin K 2.5mg PO 01/21 7.9 Held 01/20 --- Held 01/19 2.7 HOLD Assessment/Plan: 1. Significantly supratherapeutic INR today. Vitamin K 2.5mg PO given this morning. Holding warfarin for possible GIB and elevated INR, please notify [facility] when able to resume anticoagulation. 2. Monitor for s/s of bleeding and drug interactions. Will adjust dose accordingly 3. Will facilitate f/u at [facility] upon discharge Fatuma Odonnell RPh, PharmD [facility] is available daily [phone] via TruHearing Chat. If no response on TruHearing Chat then please page [phone]. [facility] Anticoagulation Management Service ([facility]) Inpatient Warfarin Consult HPI: Jun Snyder is a 59 y.o. male admitted on 01/19/2025 for Complication of tracheostomy ([facility]) ([facility]) [J95.00] Past Medical History: Diagnosis Date Acute renal failure (ARF) ([facility]) 10/19/2019 Anemia 12/30/2021 Calcification of abdominal aorta ([facility]) 10/08/202309/[address] abd Diverticulosis 10/08/2023 ESRD on hemodialysis ([facility]) ([facility]) 10/26/2019 Hemodialysis patient ([facility]) ([facility]) HTN (hypertension) 12/01/2022 Hypertension IgA nephropathy IgA nephropathy determined by biopsy of kidney 10/26/2019 Missed vaccination due to patient refusal 10/08/2023 Has a number of non-scientific based beliefs which interfere with his understanding and acceptance of the medical benefit of vaccination. Nonrheumatic aortic valve stenosis 10/08/2023 Paroxysmal A-fib ([facility]) ([facility]) 08/18/2023 Tobacco abuse 10/08/2023 Patient is on warfarin for Afib, mechanical AVR and has a goal INR 2.0 - 3.0. Warfarin is currently managed by facility, has yet to be seen by [facility]. Pt's home dose of warfarin is not [...] admission. Holding warfarin for GIB, please notify [facility] when able to resume anticoagulation. 2. Monitor for s/s of bleeding and drug interactions. Will adjust dose accordingly 3. Will facilitate f/u at [facility] upon discharge Darryn Wagner RPh, PharmD [facility] is available daily [phone] via PenBlade. If no response on TruHearing Chat then please page [phone]. Associated Order(s): IP CONSULT TO GENERAL SURGERY Images from the original note were not included. Department of General Surgery Surgical Service - [facility] Resident Consult Note 01/21/2025 CHIEF COMPLAINT: Chief [...] History: Diagnosis Date Acute renal failure (ARF) ([facility]) 10/19/2019 Anemia 12/30/2021 Calcification of abdominal aorta ([facility]) 10/08/202309/[address] abd Diverticulosis 10/08/2023 ESRD on hemodialysis ([facility]) ([facility]) 10/26/2019 Hemodialysis patient ([facility]) ([facility]) HTN (hypertension) 12/01/2022 Hypertension IgA nephropathy IgA nephropathy determined by biopsy of kidney 10/26/2019 Missed vaccination due to patient refusal 10/08/2023 Has a number of non-scientific based beliefs which interfere with his understanding and acceptance of the medical benefit of vaccination. Nonrheumatic aortic valve stenosis 10/08/2023 Paroxysmal A-fib ([facility]) ([facility]) 08/18/2023 Tobacco abuse 10/08/2023 Past Surgical History: Procedure Laterality Date APPENDECTOMY CARDIAC CATHETERIZATION N/A 10/09/2024 Performed by Bob Watson MD at [facility] Cardiac Cath/EP Lab CARDIAC CATHETERIZATION Bilateral 11/01/2024 Performed by Bob Watson MD at [facility] Cardiac Cath/EP Lab CARDIAC CATHETERIZATION N/A 11/01/2024 Performed by Bob Watson MD at [facility] Cardiac Cath/EP Lab FISTULAGRAM (HISTORICAL) Left 09/15/2021 LEFT UPPER ARM HX AV FISTULA CREATION IR EMBOLIZATION 10/14/2024 IR EMBOLIZATION 10/14/2024 [facility] SPECIAL PROCEDURES IR FISTULAGRAM 08/07/2022 IR FISTULAGRAM 08/07/2022 [facility] IR IMAGING TONSILLECTOMY (HISTORICAL) Medications Prior to Admission: Current Facility-Administered Medications Medication Dose Route Frequency Provider Last Rate Last Admin acetaminophen (Tylenol) tablet 1,000 mg 1,000 mg Oral q8h PRN Steve Lassiter MD 1,000 mg at 01/19/25 1540 ampicillin-sulbactam (Unasyn) 3,000 mg in sodium chloride 0.9 % 100 mL IVPB (Add-Arcanum) 3,000 mg IntraVENous q12h Steve Lassiter MD [...] Patient Unable To Answer (12/01/2024) Received from [facility] Overall Financial Resource Strain (CARDIA) Difficulty of Paying Living Expenses: Patient unable to answer Food Insecurity: Patient Unable To Answer (12/01/2024) Received from [facility] Hunger Vital Sign Worried About Running Out of Food in the Last Year: Patient unable to answer Ran Out of Food in the Last Year: Patient unable to answer Transportation Needs: No Transportation Needs (01/18/2025) Received from [facility] SDIN Transportation Source Has lack of transportation kept you from medical appointments or from getting medications?: No Has lack of transportation kept you from meetings, work, or from getting things needed for daily living?: No Stress: No Stress Concern Present (01/18/2025) Received from [facility] Roundup of Occupational Health - Occupational Stress Questionnaire Feeling of Stress : Not at all Social Connections: Patient Unable To Answer (12/01/2024) Received from [facility] Social Connection and Isolation Panel [NHANES] Frequency of Communication with Friends and Family: Patient unable to answer Frequency of Social Gatherings with Friends and Family: Patient unable to answer Attends Faith Services: Patient unable to answer Active Member of Clubs or Organizations: Patient unable to answer Attends Club or Organization Meetings: Patient unable to answer Marital Status: Patient unable to answer Intimate Partner Violence: Patient Unable To Answer (11/28/2024) Received from [facility] Domestic Abuse Assessment Do you feel safe in your relationships at home?: Unable to assess Physical Abuse: Unable to assess Verbal Abuse: Unable to assess Housing Stability: Patient Unable To Answer (12/01/2024) Received from [facility] Housing Stability Vital Sign Unable to [...] Hepatic Function Panel: No results found for: "ALKPHOS", "ALT", "AST", "PROT", "BILITOT", BILIDIR PT/INR: Lab Results Component Value Date PROTIME 73.5 (H) 01/21/2025 INR 7.9 (HH) 01/21/2025 Troponin: No results found for: TROPONINI LIPASE: No results found for: LIPASE IMAGING: POCT glucose meter Performed by: [facility], [address] [address] CLIA ID: [id number] POCT glucose meter Performed by: [facility], [address] [place] [address] CLIA ID: [id number] POCT glucose meter Performed by: [facility], [address] [place] [address] [place] [address] CLIA ID: [id number] POCT glucose meter Performed by: [facility], [address] [place] [address] CLIA ID: [id number] POCT glucose meter Performed by: [facility], [address] [place] [address] CLIA ID: [id number] POCT glucose meter Performed by: [facility], [address] [place] [address], [facility] [address] CLIA ID: [id number] ASSESSMENT AND PLAN: Jun Snyder is a [...] Brenton Goldstein MD General Surgery PGY-1 Pager #[phone] Cosigned by Tex Brush MD at 01/22/2025 6:07 AM EDT Associated attestation - Tex Bursh MD - 01/22/2025 6:07 AM EDT ATTENDING ADDENDUM Active Diagnoses/Problems this Admission: Patient Active Problem List Diagnosis Anemia Paroxysmal A-fib (CMS/HCC) (HCC) HTN (hypertension) ESRD on hemodialysis ([facility]) ([facility]) IgA nephropathy determined by biopsy of [...] due to methicillin susceptible Staphylococcus aureus (MSSA) ([facility]) Sacral osteomyelitis (CMS/HCC) (HCC) Acute respiratory failure with hypoxia ([facility]) [J96.01] Tracheostomy care ([facility]) [Z43.0] 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) I personally supervised the resident physician [...] Surgery Division of Trauma Department of Surgery [facility] Images from the original note were not [...] IgA nephropathy, severe who was admitted to [facility] 01/19 due to trach dislodgement. Since patient [...] (Temporal) Resp 16 Ht 1.778 m (5' 10") Wt 58.9 kg (129 lb 13.6 oz) [...] Normal [] Scar/Lesion/Mass Inspection of teeth/lips/gums Dentition: []Gambell Teeth []Dentures Lips/Gums: [x]Intact []Lesion Present Mucosa: [x]Emerald []Moist [x]Dry Neck: External Appearance Overall Appearance: [...] Plan: Principal Problem: Complication of tracheostomy (CMS/HCC) ([facility]) Active Problems: Severe malnutrition (CMS/HCC) ([facility]) Assessment: Rectal bleeding with concern for [...] 2:43 PM I have personally performed a hymq-ep-lbyt diagnostic evaluation on this patient on date of service 01/21/2025. History, labs, imaging studies, and electronic medical record have been reviewed by me. This note documented by the [x]housekeeping lead []ARMIN reflects my history, exam, and medical decision making. I have reviewed and agree with the care plan. Changes were made in the orders as necessary. ROS documentation was reviewed and negative unless otherwise stated in HPI. Additional pertinent interval history, ROS, and physical exam findings: Mr Snyder is a 59 year old male who presented to [facility] 01/19 after inadvertent removal of his tracheostomy. He was transferred to [facility] ICU for surgical evaluation. On arrival he [...] maintain >7 -Hold coumadin -Continue protonix bid -BEHAVIOR ANALYST per nephrology, will appreciate recs -Consult general [...] Abhishek gastrostomy tube placement, who presented to [facility] on 01/19/25 as a transfer from [facility] Per patient, was trying to disconnect his vent to transfer to another room but accidentally pulled out his tracheostomy. This event happened approximately 45 minutes before ED arrival. ED attempted to place tracheostomy tube back but were unsuccessful. Decision was made to transfer patient to [facility] ICU for further airway management and determine if replacement tracheostomy is needed. Patient was admitted to the MICU-01/19 where he was evaluated by general surgery for re-do tracheostomy and determined to be saturating appropriately on room air without need for re-placement. Patient was transferred out of the MICU [facility] The MICU is consulted now for [...] History: Diagnosis Date Acute renal failure (ARF) ([facility]) 10/19/2019 Anemia 12/30/2021 Calcification of abdominal aorta ([facility]) 10/08/202309/[address] abd Diverticulosis 10/08/2023 ESRD on hemodialysis ([facility]) ([facility]) 10/26/2019 Hemodialysis patient ([facility]) ([facility]) HTN (hypertension) 12/01/2022 Hypertension IgA nephropathy IgA nephropathy determined by biopsy of kidney 10/26/2019 Missed vaccination due to patient refusal 10/08/2023 Has a number of non-scientific based beliefs which interfere with his understanding and acceptance of the medical benefit of vaccination. Nonrheumatic aortic valve stenosis 10/08/2023 Paroxysmal A-fib ([facility]) ([facility]) 08/18/2023 Tobacco abuse 10/08/2023 Past Surgical History: Procedure Laterality Date APPENDECTOMY CARDIAC CATHETERIZATION N/A 10/09/2024 Performed by Bob Watson MD at [facility] Cardiac Cath/EP Lab CARDIAC CATHETERIZATION Bilateral 11/01/2024 Performed by Bob Watson MD at [facility] Cardiac Cath/EP Lab CARDIAC CATHETERIZATION N/A 11/01/2024 Performed by Bob Watson MD at [facility] Cardiac Cath/EP Lab FISTULAGRAM (HISTORICAL) Left 09/15/2021 LEFT UPPER ARM HX AV FISTULA CREATION IR EMBOLIZATION 10/14/2024 IR EMBOLIZATION 10/14/2024 [facility] SPECIAL PROCEDURES IR FISTULAGRAM 08/07/2022 IR FISTULAGRAM 08/07/2022 [facility] IR IMAGING TONSILLECTOMY (HISTORICAL) Family History [...] Patient Unable To Answer (12/01/2024) Received from [facility] Overall Financial Resource Strain (CARDIA) Difficulty of Paying Living Expenses: Patient unable to answer Food Insecurity: Patient Unable To Answer (12/01/2024) Received from [facility] Hunger Vital Sign Worried About Running Out of Food in the Last Year: Patient unable to answer Ran Out of Food in the Last Year: Patient unable to answer Transportation Needs: No Transportation Needs (01/18/2025) Received from [facility] Transportation Source Has lack of transportation kept you from medical appointments or from getting medications?: No Has lack of transportation kept you from meetings, work, or from getting things needed for daily living?: No Physical Activity: Not on file Stress: No Stress Concern Present (01/18/2025) Received from [facility] Roundup of Occupational Health - Occupational Stress Questionnaire Feeling of Stress : Not at all Social Connections: Patient Unable To Answer (12/01/2024) Received from [facility] Social Connection and Isolation Panel [NHANES] Frequency of Communication with Friends and Family: Patient unable to answer Frequency of Social Gatherings with Friends and Family: Patient unable to answer Attends Faith Services: Patient unable to answer Active Member of Clubs or Organizations: Patient unable to answer Attends Club or Organization Meetings: Patient unable to answer Marital Status: Patient unable to answer Intimate Partner Violence: Patient Unable To Answer (11/28/2024) Received from [facility] Domestic Abuse Assessment Do you feel safe in your relationships at home?: Unable to assess Physical Abuse: Unable to assess [facility] Domestic Abuse - Type of Abuse: Not on file [facility] Domestic Abuse - Time Frame: Not on file [facility] Domestic Abuse - Signs and Symptoms: Not on file Verbal Abuse: Unable to assess [facility] Domestic Abuse - Reported To: Not on file Housing Stability: Patient Unable To Answer (12/01/2024) Received from [facility] Stability Vital Sign Unable to Pay for Housing in the Last Year: Patient unable to answer Number of Times Moved in the Last Year: 0 Homeless in the Last Year: Patient unable to answer Allergies Allergen Reactions Lisinopril Swelling and Angioedema Prior to Admission medications Medication Sig Start Date End Date Taking? Authorizing Provider epoetin rowan-epbx (Retacrit) 37263 UNIT/ML injection Inject 0.79 mL (7,900 Units) [...] C (96.7 F) Resp 16 Ht 5' 10" (1.778 m) Wt 129 lb 13.6 oz [...] Normal [] Scar/Lesion/Mass Inspection of teeth/lips/gums Dentition: []Gambell Teeth []Dentures Lips/Gums: [x]Intact []Lesion Present Mucosa: [x]Emerald []Moist []Dry Neck: External Appearance Overall Appearance: [...] within last 24 hours- BMP: Recent Labs 01/19/2534101/20/25 0514 NA 135* 135* K 4.4 4.8 CL 95* 98 CO2 25 22 BUN 80* 91* CREATININE 3.50* 4.31* CALCIUM 10.6* 9.2 MG -- 2.8* PHOS -- 6.1* LFTs: No results for input(s): "AST", "ALT", "PROT", "ALBUMIN", "BILITOT", "BILIRUBINU", "ALKPHOS", "LIPASE" in the last 72 hours. Glucose: Recent Labs 01/19/2534101/20/25 0514 GLUCOSE 85 68* Procal: No results for input(s): "PROCAL" in the last 72 hours. CBC: Recent Labs 01/19/25 0342 01/19/25 0652 01/20/25 0514 01/20/25 0801 01/20/25 1302 WBC 11.6* 10.9* 10.5 -- -- HGB 9.1* 9.4* 6.6* 8.2* 8.2* HCT 29.1* 30.2* 21.3* 25.8* 25.7* PLT 404 416 279 -- -- MCV 87.4 87.8 88.4 -- -- RDW 18.5* 18.6* 18.3* -- -- ABGs: No results for input(s): "PHART", "EEU6HWP", "PO2ART", "IYX8TXW", "SO2ART", "D6ZWQDOJ" in the last 72 hours. Lactic Acid: No results for input(s): "LACTATE" in the last 72 hours. INR: Recent Labs 01/18/25 0238 01/19/25 0652 INR 2.1* 2.7* Cardiac Injury Profile: No results for input(s): "CKTOTAL", "CKMB", "TROPONINI" in the last 72 hours. Labs in [...] 11/14/2024 Strep Ag: No results for input(s): "STREPPNEUMO" in the last 72 hours. Imaging- XR [...] Plan: Principal Problem: Complication of tracheostomy (CMS/HCC) ([facility]) Active Problems: Severe malnutrition (CMS/HCC) ([facility]) Assessment: Passage of Bright red blood [...] normal BMI 18.5-24.9 Disposition: Remain on the [facility] Critical Care Time: Total critical care [...] PM EDT I have personally performed a [id number] diagnostic evaluation on this patient on date of service 01/20/25. History, labs, imaging studies, and electronic medical record have been reviewed by me. This note documented by the []housekeeping lead []ARMIN reflects my history, exam, and medical [...] from the original note were not included. [facility] - Infectious Diseases Advanced Practice Provider Consult Note Reason for Consult: Sacral ulcer osteomyelitis on IV abx at [facility]- known patient History of Present Illness: 59 yo male with PMHx significant for ESRD on HD, HTN, and PAD who was admitted at [facility] 10/03-11/28/24 after presenting with chest pain, cough, [...] Pip-Tazo and Anidulafungin. He was transferred to [facility] on 11/28/24. There he was followed by our ID group and had had recurrent MSSA LRTI that was treated. Additionally, his sacral wound was debrided to bone on 01/02/25. Sacral wound Cx + E faecalis and Clostridium clostridioforme. He is to be on a course of Amp-Sulbactam x6 weeks through 02/13/25. He was discharged to SNF on 01/18. Patient presented to [facility] on 01/19 after self-dislodging tracheostomy. He was transferred to [facility] ICU for further airway management and to [...] History: Diagnosis Date Acute renal failure (ARF) ([facility]) 10/19/2019 Anemia 12/30/2021 Calcification of abdominal aorta ([facility]) 10/08/202309/[address] abd Diverticulosis 10/08/2023 ESRD on hemodialysis ([facility]) ([facility]) 10/26/2019 Hemodialysis patient ([facility]) ([facility]) HTN (hypertension) 12/01/2022 Hypertension IgA nephropathy IgA nephropathy determined by biopsy of kidney 10/26/2019 Missed vaccination due to patient refusal 10/08/2023 Has a number of non-scientific based beliefs which interfere with his understanding and acceptance of the medical benefit of vaccination. Nonrheumatic aortic valve stenosis 10/08/2023 Paroxysmal A-fib ([facility]) ([facility]) 08/18/2023 Tobacco abuse 10/08/2023 Past Surgical History: Past Surgical History: Procedure Laterality Date APPENDECTOMY CARDIAC CATHETERIZATION N/A 10/09/2024 Performed by Bob Watson MD at [facility] Cardiac Cath/EP Lab CARDIAC CATHETERIZATION Bilateral 11/01/2024 Performed by Bob Watson MD at [facility] Cardiac Cath/EP Lab CARDIAC CATHETERIZATION N/A 11/01/2024 Performed by Bob Watson MD at [facility] Cardiac Cath/EP Lab FISTULAGRAM (HISTORICAL) Left 09/15/2021 LEFT UPPER ARM HX AV FISTULA CREATION IR EMBOLIZATION 10/14/2024 IR EMBOLIZATION 10/14/2024 [facility] SPECIAL PROCEDURES IR FISTULAGRAM 08/07/2022 IR FISTULAGRAM 08/07/2022 [facility] IR IMAGING TONSILLECTOMY (HISTORICAL) Current Medications: Current Facility-Administered Medications Medication Dose Route Frequency Provider Last Rate Last Admin acetaminophen (Tylenol) tablet 1,000 mg 1,000 mg Oral q8h PRN Steve Lassiter MD 1,000 mg at 01/19/25 1540 ampicillin-sulbactam (Unasyn) 3,000 mg in sodium chloride 0.9 % 100 mL IVPB (Add-Arcanum) 3,000 mg IntraVENous q12h Steve Lassiter MD [...] Patient Unable To Answer (12/01/2024) Received from [facility] Overall Financial Resource Strain (CARDIA) Difficulty of Paying Living Expenses: Patient unable to answer Food Insecurity: Patient Unable To Answer (12/01/2024) Received from [facility] Hunger Vital Sign Worried About Running Out of Food in the Last Year: Patient unable to answer Ran Out of Food in the Last Year: Patient unable to answer Transportation Needs: No Transportation Needs (01/18/2025) Received from [facility] Transportation Source Has lack of transportation kept you from medical appointments or from getting medications?: No Has lack of transportation kept you from meetings, work, or from getting things needed for daily living?: No Physical Activity: Not on file Stress: No Stress Concern Present (01/18/2025) Received from [facility] Roundup of Occupational Health - Occupational Stress Questionnaire Feeling of Stress : Not at all Social Connections: Patient Unable To Answer (12/01/2024) Received from [facility] Social Connection and Isolation Panel [NHANES] Frequency of Communication with Friends and Family: Patient unable to answer Frequency of Social Gatherings with Friends and Family: Patient unable to answer Attends Faith Services: Patient unable to answer Active Member of Clubs or Organizations: Patient unable to answer Attends Club or Organization Meetings: Patient unable to answer Marital Status: Patient unable to answer Intimate Partner Violence: Patient Unable To Answer (11/28/2024) Received from [facility] Domestic Abuse Assessment Do you feel safe in your relationships at home?: Unable to assess Physical Abuse: Unable to assess [facility] Domestic Abuse - Type of Abuse: Not on file [facility] Domestic Abuse - Time Frame: Not on file [facility] Domestic Abuse - Signs and Symptoms: Not on file Verbal Abuse: Unable to assess [facility] Domestic Abuse - Reported To: Not on file Housing Stability: Patient Unable To Answer (12/01/2024) Received from [facility] Housing Stability Vital Sign Unable to [...] NEUTROABS 7.6* 7.5 7.5 -- Micro: Previous ([facility]) 01/02- sacral wound cx- E faecalis (Amp-S), skin ila, Clostridium clostrioforme 01/01- blood cx- 2/2 NG 12/30- blood cx- 2/2 NGTD 12/30- sputum cx- MSSA, resp ila 12/25- blood cx- 2/2 negative 12/14- sputum cx- MSSA, resp ila 12/14- MRSA pcr- MSSA 12/11- sputum cx- MSSA, resp ila Previous ([facility]) 11/28- L pleural fluid- negative 11/16- abd [...] 2/2 negative 10/03- plex- RSV Lines: AVF PIV Radiography/Echo/Other: 01/19 CXR [...] wound debrided to bone on 01/02 at [facility] (Cx with E faecalis and Clostridium) Plan [...] accounting for open encounter. Mikala MORAN PA-C [facility] Infectious Disease Cosigned by Gurdeep Cruz MD at 01/20/2025 4:06 PM EDT Associated Order(s): IP CONSULT TO GI Images from the original note were not included. Department of Internal Medicine Gastroenterology Attending Consult Note Reason for Consult: The patient was seen in consultation at the request of Dr. Denson re: "GI bleed, acute blood loss anemia". CHIEF COMPLAINT: positive blood cultures, hypotension, removed [...] gastrostomy tube placement, who presented to the [place] emergency room from [facility] on 01/19/2025 where he is admitted for IV antibiotics for multiple infected wounds including dry gangrene to the left foot and sacral ulcers. Patient accidentally pulled his tracheostomy and was therefore transferred to the emergency room. Patient transferred to [facility] for higher level of care. GI [...] throughout entire last hospitalization. On presentation to [place] 01/19/2025 hemoglobin was 9.1. This morning dropped to 6.6. No transfusion but repeat hemoglobin 3 hours later at 8.2. Currently getting dialysis. Reports he had a BM 5 minutes ago and he does not know what stools have looked like. He denies abdominal pain. No nausea, vomiting. Per patient girlfriend SNF has been flipping [id number] between Coumadin and heparin secondary to patient INR. Assume last dose of Coumadin to be 01/18/2025. History of appendectomy and PEG placement. Allergies: Lisinopril Current Medications: Current Facility-Administered Medications: acetaminophen (Tylenol) tablet 1,000 mg, 1,000 mg, Oral, q8h PRN, Steve Lassiter MD, 1,000 mg at 01/19/25 1540 ampicillin-sulbactam (Unasyn) 3,000 mg in sodium chloride 0.9 % 100 mL IVPB (Add-Arcanum), 3,000 mg, IntraVENous, q12h, Steve Lassiter MD, [...] Diagnosis Date Noted Anemia 12/30/2021 Paroxysmal A-fib ([facility]) ([facility]) 08/18/2023 HTN (hypertension) 12/01/2022 ESRD on hemodialysis ([facility]) ([facility]) 10/26/2019 IgA nephropathy determined by biopsy of kidney 10/26/2019 Diverticulosis 10/08/2023 Nonrheumatic aortic valve stenosis 10/08/2023 Calcification of abdominal aorta ([facility]) 10/08/2023 Missed vaccination due to patient refusal 10/08/2023 Tobacco abuse 10/08/2023 Alcohol use disorder in remission 10/08/2023 Atrial flutter, unspecified type ([facility]) 10/03/2024 RSV (acute bronchiolitis due to respiratory syncytial virus) 10/03/2024 Aortic stenosis 10/03/2024 Upper GI bleed 10/03/2024 S/P AVR 10/03/2024 Acute hypoxic respiratory failure (HCC) 10/03/2024 Acute encephalopathy 10/03/2024 Pneumoperitoneum 10/03/2024 Gastric ulceration 2024 Severe malnutrition ([facility]) ([facility]) 01/19/2025 Pleural effusion 11/28/2024 Peritonitis due to fungus ([facility]) 11/30/2024 History of abdominal surgery 11/30/2024 Leg DVT (deep venous thromboembolism), acute, left ([facility]) 11/30/2024 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, 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 of skin (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) 11/30/2024 Leukocytosis 12/30/2024 Decubitus ulcer of sacral region, unstageable ([facility]) 12/30/2024 Pneumonia of both lungs due to methicillin susceptible Staphylococcus aureus (MSSA) ([facility]) 01/01/2025 Sacral osteomyelitis ([facility]) ([facility]) 01/03/2025 Acute respiratory failure with hypoxia ([facility]) [J96.01] 01/08/2025 Tracheostomy care ([facility]) [Z43.0] 01/08/2025 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) 10/19/2019 New onset a-fib ([facility]) ([facility]) 08/16/2023 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[facility]) 10/03/2024 Past Medical History: Diagnosis Date Hemodialysis patient ([facility]) ([facility]) Hypertension IgA nephropathy Past Surgical History: [...] Patient Unable To Answer (12/01/2024) Received from [facility] Overall Financial Resource Strain (CARDIA) Difficulty of Paying Living Expenses: Patient unable to answer Food Insecurity: Patient Unable To Answer (12/01/2024) Received from [facility] Hunger Vital Sign Worried About Running Out of Food in the Last Year: Patient unable to answer Ran Out of Food in the Last Year: Patient unable to answer Transportation Needs: No Transportation Needs (01/18/2025) Received from [facility] Transportation Source Has lack of transportation kept you from medical appointments or from getting medications?: No Has lack of transportation kept you from meetings, work, or from getting things needed for daily living?: No Physical Activity: Not on file Stress: No Stress Concern Present (01/18/2025) Received from [facility] Roundup of Occupational Health - Occupational Stress Questionnaire Feeling of Stress : Not at all Social Connections: Patient Unable To Answer (12/01/2024) Received from [facility] Social Connection and Isolation Panel [NHANES] Frequency of Communication with Friends and Family: Patient unable to answer Frequency of Social Gatherings with Friends and Family: Patient unable to answer Attends Faith Services: Patient unable to answer Active Member of Clubs or Organizations: Patient unable to answer Attends Club or Organization Meetings: Patient unable to answer Marital Status: Patient unable to answer Intimate Partner Violence: Patient Unable To Answer (11/28/2024) Received from [facility] Domestic Abuse Assessment Do you feel safe in your relationships at home?: Unable to assess Physical Abuse: Unable to assess [facility] Domestic Abuse - Type of Abuse: Not on file [facility] Domestic Abuse - Time Frame: Not on file [facility] Domestic Abuse - Signs and Symptoms: Not on file Verbal Abuse: Unable to assess [facility] Domestic Abuse - Reported To: Not on file Housing Stability: Patient Unable To Answer (12/01/2024) Received from [facility] Housing Stability Vital Sign Unable to [...] (97 F) (Temporal) Resp 17 Ht 5' 10" (1.778 m) Wt 129 lb 13.6 oz [...] 10/12/24, Coumadin, last dose suspected 01/18/25 at [facility] Acute Right occipital ICH- 10/22/24 ESRD on [...] 59 y.o. male with who presented to [facility] as transfer for trach dislodgment. Palliative Care [...] pt was receiving and tolerating while at [facility]. Per MNT protocol will initiate EN as above given prior consult for TF ordering and management. This result has been reviewed by Casandra Everett RD, LD on 01/20/25 at 7:18 AM. 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) 10/19/2019 Anemia 12/30/2021 Calcification of abdominal aorta ([facility]) 10/08/202309/[address] abd Diverticulosis 10/08/2023 ESRD on hemodialysis ([facility]) ([facility]) 10/26/2019 Hemodialysis patient ([facility]) ([facility]) HTN (hypertension) 12/01/2022 Hypertension IgA nephropathy IgA nephropathy determined by biopsy of kidney 10/26/2019 Missed vaccination due to patient refusal 10/08/2023 Has a number of non-scientific based beliefs which interfere with his understanding and acceptance of the medical benefit of vaccination. Nonrheumatic aortic valve stenosis 10/08/2023 Paroxysmal A-fib ([facility]) ([facility]) 08/18/2023 Tobacco abuse 10/08/2023 Social History [...] Patient Unable To Answer (12/01/2024) Received from [facility] Overall Financial Resource Strain (CARDIA) Difficulty of Paying Living Expenses: Patient unable to answer Food Insecurity: Patient Unable To Answer (12/01/2024) Received from [facility] Hunger Vital Sign Worried About Running Out of Food in the Last Year: Patient unable to answer Ran Out of Food in the Last Year: Patient unable to answer Transportation Needs: No Transportation Needs (01/18/2025) Received from [facility] Transportation Source Has lack of transportation kept you from medical appointments or from getting medications?: No Has lack of transportation kept you from meetings, work, or from getting things needed for daily living?: No Physical Activity: Not on file Stress: No Stress Concern Present (01/18/2025) Received from [facility] Roundup of Occupational Health - Occupational Stress Questionnaire Feeling of Stress : Not at all Social Connections: Patient Unable To Answer (12/01/2024) Received from [facility] Social Connection and Isolation Panel [NHANES] Frequency of Communication with Friends and Family: Patient unable to answer Frequency of Social Gatherings with Friends and Family: Patient unable to answer Attends Faith Services: Patient unable to answer Active Member of Clubs or Organizations: Patient unable to answer Attends Club or Organization Meetings: Patient unable to answer Marital Status: Patient unable to answer Intimate Partner Violence: Patient Unable To Answer (11/28/2024) Received from [facility] Domestic Abuse Assessment Do you feel safe in your relationships at home?: Unable to assess Physical Abuse: Unable to assess [facility] Domestic Abuse - Type of Abuse: Not on file [facility] Domestic Abuse - Time Frame: Not on file [facility] Domestic Abuse - Signs and Symptoms: Not on file Verbal Abuse: Unable to assess [facility] Domestic Abuse - Reported To: Not on file Housing Stability: Patient Unable To Answer (12/01/2024) Received from [facility] Housing Stability Vital Sign Unable to [...] sodium chloride 0.9 % 100 mL IVPB (Add-Arcanum), 3,000 mg, IntraVENous, Daily, Steve Lassiter MD [...] Resp (!) 28 Ht 1.778 m (5' 10") Wt 58.9 kg (129 lb 13.6 oz) [...] from last 7 days Lab Units 01/19/25 03401/16/2531501/15/25 0257 SODIUM mmol/L 135* 138 135* POTASSIUM mmol/L 4.4 4.0 5.6* CHLORIDE mmol/L 95* 95* 93* CO2 mmol/L 25 28 27 BUN mg/dL 80* 64* 117* CREATININE mg/dL 3.50* 2.46* 3.97* GLUCOSE mg/dL 85 85 95 CALCIUM mg/dL 10.6* 9.6 10.2 Results from last 7 days Lab Units 01/19/25 03401/16/2531501/15/25 0257 SODIUM mmol/L 135* < > 135* [...] airway management needs. Maintain NPO status per RELIGIOUS LEADER recommendations until airway stabilization; consider modification of HD orders if NPO persists beyond 24-48 hours impacting volume/nutrition Please message me through [email or web address] chat with any questions or concerns. Wellington Nicole MD 01/19/2025 4:13 PM [facility] [address] [place] [address], [address] [place] [address] Office: [phone] Associated Order(s): IP CONSULT TO DIETITIAN; IP [...] EN only as sole source of nutrition. RELIGIOUS LEADER was following while pt was at [facility]. RELIGIOUS LEADER consulted inpatient and recommending strict NPO. RD [...] pt was receiving and tolerating while at [facility]. Will monitor tolerance of nutrition as initiated and increased to goal. Will continue to monitor RELIGIOUS LEADER in the event that oral diet can [...] Accumulation: No significant fluid accumulation (per flowsheets) Sales And Leasing Agent Strength: Not Performed Nutrition Assessment: pt with [...] Prostat, pt was stabilized and transferred to [facility] for ongoing care, vent liberation and rehab, while at [facility] RD was following and pt was receiving Nepro @ 50mls/hr, pt was discharged from [facility] to SNF on 01/18/25, pt now presented to [facility] ED on 01/19/25 from [facility] due to trach dislodgement, pt stated he was trying to disconnect his vent to transfer to another room but accidentally pulled out his tracheostomy, event happened approximately 45 minutes before ED arrival, ED attempted to place tracheostomy tube back but was unsuccessful thus decision was made to transfer pt to [facility] ICU for further airway management and to [...] management, Nephrology and wound care consults pending, RELIGIOUS LEADER was also consulted and recommending strict NPO. In terms of nutrition pt remains NPO at this time, RD spoke with pt in room, no family/visitors present, pt states that he was only receiving nutrition via PEG SKETCHER, states his goals are to 'eat ice [...] Pt presented from SNF, [facility] [facility] 10/03-11/28/24, discharged to [facility] and recently transferred to [facility] [place] [facility] Orientation Level: Oriented to situation, Oriented to time, Oriented to person, Disoriented to place, Oriented/disoriented at times, Cognition: Follows commands, Best Verbal Response: Confused, Patient Behaviors/Mood: Anxious, Cooperative, Restless Teeth: Missing teeth Swallow: Other (Comment) ([facility]) Kee Scale Score: 15. Wound Type: Wound [...] NPO Anthropometric Measures: Height: 177.8 cm (5' 10") Current Body Weight: 58.9 kg (129 lb 13.6 oz) (RD obtained bedscale weight today 01/19/25) Weight Source: Bed Scale Admission Body Weight: (no admit weight obtained) Usual Body Weight: (per EPIC review --> 10/08/23: 207#, 11/12: 208#, 08/28: 206#, 10/04/24: 192#, 10/15: 207# bedscale, 10/31: 200#, 11/28: 161#, 01/18: 142#) [place] Body Weight (lbs) (Calculated): 166 lbs [place] Body Weight (Kg) (Calculated): 75 kg % [place] Body Weight (Calculated): 78.2 % BMI (kg/m2) [...] Nutrition Dana El RD Contact: available via [email or web address] chat or *[phone] Associated Order(s): INPATIENT CONSULT TO WOUND CARE PROVIDERS Images from the original note were not included. [facility] Wound Care CONSULT Note Jun Snyder AGE: [...] diverticulosis, IgA nephropathy, severe that presented to [facility] ED from a facility due to trach dislodgement. Wound Care consulted for Pressure Injury sacrum and Ischemic ulcers to left toes" PAST MEDICAL HISTORY Past Medical History: Diagnosis Date Acute renal failure (ARF) ([facility]) 10/19/2019 Anemia 12/30/2021 Calcification of abdominal aorta ([facility]) 10/08/202309/[address] abd Diverticulosis 10/08/2023 ESRD on hemodialysis ([facility]) ([facility]) 10/26/2019 Hemodialysis patient ([facility]) ([facility]) HTN (hypertension) 12/01/2022 Hypertension IgA nephropathy IgA nephropathy determined by biopsy of kidney 10/26/2019 Missed vaccination due to patient refusal 10/08/2023 Has a number of non-scientific based beliefs which interfere with his understanding and acceptance of the medical benefit of vaccination. Nonrheumatic aortic valve stenosis 10/08/2023 Paroxysmal A-fib ([facility]) ([facility]) 08/18/2023 Tobacco abuse 10/08/2023 PAST SURGICAL HISTORY Past Surgical History: Procedure Laterality Date APPENDECTOMY CARDIAC CATHETERIZATION N/A 10/09/2024 Performed by Bob Watson MD at [facility] Cardiac Cath/EP Lab CARDIAC CATHETERIZATION Bilateral 11/01/2024 Performed by Bob Watson MD at [facility] Cardiac Cath/EP Lab CARDIAC CATHETERIZATION N/A 11/01/2024 Performed by Bob Watson MD at [facility] Cardiac Cath/EP Lab FISTULAGRAM (HISTORICAL) Left 09/15/2021 LEFT UPPER ARM HX AV FISTULA CREATION IR EMBOLIZATION 10/14/2024 IR EMBOLIZATION 10/14/2024 [facility] SPECIAL PROCEDURES IR FISTULAGRAM 08/07/2022 IR FISTULAGRAM [...] Medication Sig Dispense Refill epoetin rowan-epbx (Retacrit) 98346 UNIT/ML injection Inject 0.79 mL (7,900 Units) [...] (97.1 F) Resp (!) 28 Ht 5' 10" (1.778 m) Wt 129 lb 13.6 oz [...] (H) 01/19/2025 Prealbumin: No results found for: "PREALBUMIN" Albumin:No components found for: LABALBU Sed Rate:No [...] apply Betadine and allow to dry, leave FELT COVERER daily and PRN -Recommend PVRs for circulation check Nutritional support Wound Care to follow Recommend to follow up at [facility] after hospital discharge. Any questions or concerns please secure chat "ACH wound/ostomy". Thank you for the consult! I personally [...] 4:05 PM EDT documented in this encounter [facility] 01-19-2025 History and physical note Images [...] diverticulosis, IgA nephropathy, severe that presented to [facility] ED from a facility due to trach dislodgement. Per patient, was trying to disconnect his vent to transfer to another room but accidentally pulled out his tracheostomy. This event happened approximately 45 minutes before ED arrival. ED attempted to place tracheostomy tube back but were unsuccessful. Decision was made to transfer patient to [facility] ICU for further airway management and determine [...] History: Diagnosis Date Acute renal failure (ARF) ([facility]) 10/19/2019 Anemia 12/30/2021 Calcification of abdominal aorta ([facility]) 10/08/202309/[address] abd Diverticulosis 10/08/2023 ESRD on hemodialysis ([facility]) ([facility]) 10/26/2019 Hemodialysis patient ([facility]) ([facility]) HTN (hypertension) 12/01/2022 Hypertension IgA nephropathy IgA nephropathy determined by biopsy of kidney 10/26/2019 Missed vaccination due to patient refusal 10/08/2023 Has a number of non-scientific based beliefs which interfere with his understanding and acceptance of the medical benefit of vaccination. Nonrheumatic aortic valve stenosis 10/08/2023 Paroxysmal A-fib ([facility]) ([facility]) 08/18/2023 Tobacco abuse 10/08/2023 Past Surgical History: Procedure Laterality Date APPENDECTOMY CARDIAC CATHETERIZATION N/A 10/09/2024 Performed by Bob Wtason MD at [facility] Cardiac Cath/EP Lab CARDIAC CATHETERIZATION Bilateral 11/01/2024 Performed by Bob Watson MD at [facility] Cardiac Cath/EP Lab CARDIAC CATHETERIZATION N/A 11/01/2024 Performed by Bob Watson MD at [facility] Cardiac Cath/EP Lab FISTULAGRAM (HISTORICAL) Left 09/15/2021 LEFT UPPER ARM HX AV FISTULA CREATION IR EMBOLIZATION 10/14/2024 IR EMBOLIZATION 10/14/2024 [facility] SPECIAL PROCEDURES IR FISTULAGRAM 08/07/2022 IR FISTULAGRAM 08/07/2022 [facility] IR IMAGING TONSILLECTOMY (HISTORICAL) Family History [...] Patient Unable To Answer (12/01/2024) Received from [facility] Overall Financial Resource Strain (CARDIA) Difficulty of Paying Living Expenses: Patient unable to answer Food Insecurity: Patient Unable To Answer (12/01/2024) Received from [facility] Hunger Vital Sign Worried About Running Out of Food in the Last Year: Patient unable to answer Ran Out of Food in the Last Year: Patient unable to answer Transportation Needs: No Transportation Needs (01/18/2025) Received from [facility] SDIN Transportation Source Has lack of transportation kept you from medical appointments or from getting medications?: No Has lack of transportation kept you from meetings, work, or from getting things needed for daily living?: No Physical Activity: Not on file Stress: No Stress Concern Present (01/18/2025) Received from [facility] Roundup of Occupational Health - Occupational Stress Questionnaire Feeling of Stress : Not at all Social Connections: Patient Unable To Answer (12/01/2024) Received from [facility] Social Connection and Isolation Panel [NHANES] Frequency of Communication with Friends and Family: Patient unable to answer Frequency of Social Gatherings with Friends and Family: Patient unable to answer Attends Faith Services: Patient unable to answer Active Member of Clubs or Organizations: Patient unable to answer Attends Club or Organization Meetings: Patient unable to answer Marital Status: Patient unable to answer Intimate Partner Violence: Patient Unable To Answer (11/28/2024) Received from [facility] Domestic Abuse Assessment Do you feel safe in your relationships at home?: Unable to assess Physical Abuse: Unable to assess RUSTN Domestic Abuse - Type of Abuse: Not on file [facility] Domestic Abuse - Time Frame: Not on file [facility] Domestic Abuse - Signs and Symptoms: Not on file Verbal Abuse: Unable to assess [facility] Domestic Abuse - Reported To: Not on file Housing Stability: Patient Unable To Answer (12/01/2024) Received from [facility] Housing Stability Vital Sign Unable to Pay for Housing in the Last Year: Patient unable to answer Number of Times Moved in the Last Year: 0 Homeless in the Last Year: Patient unable to answer Allergies Allergen Reactions Lisinopril Swelling and Angioedema Prior to Admission medications Medication Sig Start Date End Date Taking? Authorizing Provider epoetin rowan-epbx (Retacrit) [id number] UNIT/ML injection Inject 0.79 mL (7,900 Units) [...] Normal [] Scar/Lesion/Mass Inspection of teeth/lips/gums Dentition: []Gambell Teeth []Dentures Lips/Gums: []Intact []Lesion Present Mucosa: []Emerald []Moist []Dry Neck: External Appearance Tracheostomy hole [...] CALCIUM 10.6* LFTs: No results for input(s): "AST", "ALT", "PROT", "ALBUMIN", "BILITOT", "BILIRUBINU", "ALKPHOS", "LIPASE" in the last 72 hours. Glucose: Recent Labs 01/19/25 0342 GLUCOSE 85 Procal: No results for input(s): "PROCAL" in the last 72 hours. CBC: Recent Labs 01/19/25 0342 WBC 11.6* HGB 9.1* HCT 29.1* PLT 404 MCV 87.4 RDW 18.5* ABGs: No results for input(s): "PHART", "PJI3EOX", "PO2ART", "YKZ4AQP", "SO2ART", "P6SANQXL" in the last 72 hours. Lactic Acid: No results for input(s): "LACTATE" in the last 72 hours. INR: Recent Labs 01/17/25 0317 01/18/25 0238 INR 1.9* 2.1* Cardiac Injury Profile: No results for input(s): "CKTOTAL", "CKMB", "TROPONINI" in the last 72 hours. Labs in [...] 11/14/2024 Strep Ag: No results for input(s): "STREPPNEUMO" in the last 72 hours. Imaging- XR [...] PM EDT I have personally performed a [id number]-[id number] diagnostic evaluation on this patient on date [...] to have bile peritonitis 11/28/24: transferred to [facility]. He continued on HD at [facility]. Reportedly had ongoing issues with delirium according to his partner, Toma who was at bedside and provided history. Developed severe sacral ulcer and sacral ostomyelitis at [facility]. He was progressing with RELIGIOUS LEADER and using a PMV. Has not done any capping trials. Was transferred to a facility in [place]; there he inadvertently dislodged his tracheostomy. He initially presented to the [facility] emergency dept. He was transferred to [facility] in case of emergetn airway compromise. Assessment: Trach dislodgement, high risk of respiratory failure Chronic respiratory failure due to failure of airway protection ESRD Sacral osteomyelitis s/p AVR Full Code Plan: Admit to MICU Close monitorign for airway compromise Restart abx for osteomyelitis RELIGIOUS LEADER eval; [facility] Critical Care Time: 33 minutes Total critical care time caring for this patient with life threatening, unstable organ failure, including direct patient contact, management of life support systems, review of data including imaging and labs, discussions with other team members and physicians, excluding procedures. Electronically signed by Bruce Nguyen MD documented in this encounter [facility] 01-19-2025 Emergency department Note EMERGENCY DEPARTMENT [...] who [facility] emergency department [facility] for [facility] dislodgment of his tracheostomy [...] nephropathy, hypertension, and currently being treated at [facility] facility with IV antibiotics for multiple infected [...] History: Diagnosis Date Acute renal failure (ARF) ([facility]) 10/19/2019 Anemia 12/30/2021 Calcification of abdominal aorta ([facility]) 10/08/202309/[address] abd Diverticulosis 10/08/2023 ESRD on hemodialysis ([facility]) ([facility]) 10/26/2019 Hemodialysis patient ([facility]) ([facility]) HTN (hypertension) 12/01/2022 Hypertension IgA nephropathy IgA nephropathy determined by biopsy of kidney 10/26/2019 Missed vaccination due to patient refusal 10/08/2023 Has a number of non-scientific based beliefs which interfere with his understanding and acceptance of the medical benefit of vaccination. Nonrheumatic aortic valve stenosis 10/08/2023 Paroxysmal A-fib ([facility]) ([facility]) 08/18/2023 Tobacco abuse 10/08/2023 SURGICAL HISTORY Past Surgical History: Procedure Laterality Date APPENDECTOMY CARDIAC CATHETERIZATION N/A 10/09/2024 Performed by Bob Watson MD at [facility] Cardiac Cath/EP Lab CARDIAC CATHETERIZATION Bilateral 11/01/2024 Performed by Bob Watson MD at [facility] Cardiac Cath/EP Lab CARDIAC CATHETERIZATION N/A 11/01/2024 Performed by Bob Watson MD at [facility] Cardiac Cath/EP Lab FISTULAGRAM (HISTORICAL) Left 09/15/2021 LEFT UPPER ARM HX AV FISTULA CREATION IR EMBOLIZATION 10/14/2024 IR EMBOLIZATION 10/14/2024 [facility] SPECIAL PROCEDURES IR FISTULAGRAM 08/07/2022 IR FISTULAGRAM 08/07/2022 [facility] IR IMAGING TONSILLECTOMY (HISTORICAL) CURRENT MEDICATIONS Previous Medications EPOETIN ROWAN-EPBX (RETACRIT) 58652 UNIT/ML INJECTION Inject 0.79 mL (7,900 Units) [...] Patient Unable To Answer (12/01/2024) Received from [facility] Overall Financial Resource Strain (CARDIA) Difficulty of Paying Living Expenses: Patient unable to answer Food Insecurity: Patient Unable To Answer (12/01/2024) [facility] Hunger Vital Sign Worried About Running Out of Food in the Last Year: Patient unable to answer Ran Out of Food in the Last Year: Patient unable to answer Transportation Needs: No Transportation Needs (01/18/2025) [facility] Transportation Source Has lack of transportation kept you from medical appointments or from getting medications?: No Has lack of transportation kept you from meetings, work, or from getting things needed for daily living?: No Stress: No Stress Concern Present (01/18/2025) Received from [facility] [place] Roundup of Occupational Health - Occupational Stress Questionnaire Feeling of Stress : Not at all Social Connections: Patient Unable To Answer (12/01/2024) Received from [facility] Social Connection and Isolation Panel [NHANES] Frequency of Communication with Friends and Family: Patient unable to answer Frequency of Social Gatherings with Friends and Family: Patient unable to answer Attends Faith Services: Patient unable to answer Active Member [...] Patient Unable To Answer (12/01/2024) Received from [facility] Housing Stability Vital Sign Unable to [...] nursing note reviewed. Exam conducted with a crm functional analyst present. Constitutional: General: He is not in [...] [facility] (Per Emergency Physician): Interpretation per the [...] accidental [facility] at [facility] facility as described in the HPI. Reportedly [...] necessary. Dr. Ponce recommended ICU admission to [facility] for observation with possible replacement tracheostomy if needed. ICU at [facility] was consulted and I spoke with Dr. Nguyen regarding admission to their service. He agrees with this indication and patient admitted to [facility] ICU. Diagnoses as of 01/19/25 0300 [...] sepsis, or septic shock (If yes use ".sepsiscoremeasure"): No FINAL IMPRESSION 1. Complication of tracheostomy ([facility]) ([facility]) DISPOSITION Admit 01/19/2025 03:00:18 AM PATIENT [...] 01/19/25 0301 Pt arrived Via EMS from [facility]. Pt removed his trach which he is typically on 5L. 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 He is NPO and receiving IV antibiotics for the results of his blood cultures. Pt was recently transferred to [place] from [facility]. Pt arrived with a pressure of 88/52 and 96% on room air. RT and MD at bedside upon arrival. documented in this encounter [facility] 01-18-2025 History of Presen t illness Narrative [facility] billing documented in this encounter [facility] 01-17-2025 History of Presen t illness Narrative Seen at [facility] documented in this encounter [facility] 01-17-2025 History of Presen t illness Narrative [facility] documented in this encounter [facility] 01-16-2025 History of Presen t illness Narrative [facility] billing documented in this encounter [facility] 01-15-2025 History of Presen t illness Narrative Seen at [facility] documented in this encounter [facility] 01-15-2025 History of Presen t illness Narrative [facility] billing documented in this encounter [facility] 01-14-2025 History of Presen t illness Narrative [facility] documented in this encounter [facility] 01-12-2025 History of Presen t illness Narrative [facility] documented in this encounter [facility] 01-12-2025 History of Presen t illness Narrative [facility]en at [facility] documented in this encounter [facility] 01-11-2025 History of Presen t illness Narrative [facility] documented in this encounter [facility] 01-11-2025 History of Presen t illness Narrative Seen at [facility] documented in this encounter [facility] 01-10-2025 History of Presen t illness Narrative [facility] documented in this encounter [facility] 01-09-2025 History of Presen t illness Narrative [facility] documented in this encounter [facility] 01-09-2025 History of Presen t illness Narrative Seen at [facility] documented in this encounter [facility] 01-08-2025 History of Presen t illness Narrative [facility] documented in this encounter [facility] 01-08-2025 History of Presen t illness Narrative Seen at [facility] documented in this encounter [facility] 01-05-2025 History of Presen t illness Narrative Patient seen by me at [facility]. Documentation including history, exam and plan documented in [facility] EMR. This encounter is for billing only. documented in this encounter [facility] 01-05-2025 History of Presen t illness Narrative [facility] 01/05 documented in this encounter [facility] 01-04-2025 History of Presen t illness Narrative Patient seen by me at [facility]. Documentation including history, exam and plan documented in [facility] EMR. This encounter is for billing only. documented in this encounter [facility] 01-04-2025 History of Presen t illness Narrative [facility] 01/04 documented in this encounter [facility] 01-03-2025 History of Presen t illness Narrative Patient seen by me at [facility]. Documentation including history, exam and plan documented in [facility] EMR. This encounter is for billing only. documented in this encounter [facility] 01-03-2025 History of Presen t illness Narrative Pt seen at [facility]. Complete documentation under [facility]'s EMR. documented in this encounter [facility] 01-02-2025 History of Presen t illness Narrative Pt seen at [facility]. Complete documentation under [facility]'s EMR. documented in this encounter [facility] 01-02-2025 History of Presen t illness Narrative Patient seen by me at [facility]. Documentation including history, exam and plan documented in [facility] EMR. This encounter is for billing only. documented in this encounter [facility] 01-01-2025 History of Presen t illness Narrative Pt seen at [facility]. Complete documentation under [facility]'s EMR. documented in this encounter [facility] 01-01-2025 History of Presen t illness Narrative Patient seen by me at [facility]. Documentation including history, exam and plan documented in [facility] EMR. This encounter is for billing only. documented in this encounter [facility] 01-01-2025 History of Presen t illness Narrative Subsequent visit today at [facility] documented in this encounter [facility] 12-30-2024 History of Presen t illness Narrative Pt seen at [facility]. Complete documentation under [facility] EMR. documented in this encounter [facility] 12-28-2024 History of Presen t illness Narrative Patient seen by me at [facility]. Complete documentation including history with assessment and plan were documented in [facility] EMR. This encounter is for billing only. documented in this encounter [facility] 12-27-2024 History of Presen t illness Narrative Patient seen by me at [facility]. Complete documentation including history with assessment and plan were documented in [facility] EMR. This encounter is for billing only. documented in this encounter [facility] 12-26-2024 History of Presen t illness Narrative Patient seen by me at [facility]. Complete documentation including history with assessment and plan were documented in [facility] EMR. This encounter is for billing only. documented in this encounter [facility] 12-22-2024 History of Presen t illness Narrative Patient seen by me at [facility] in [place]. Complete documentation including history with assessment and plan were documented in [facility] EMR. This encounter is for billing only. documented in this encounter [facility] 12-21-2024 History of Presen t illness Narrative Patient seen by me at [facility] in [place]. Complete documentation including history with assessment and plan were documented in [facility] EMR. This encounter is for billing only. documented in this encounter [facility] 12-20-2024 History of Presen t illness Narrative Patient seen by me at [facility] in [place]. Complete documentation including history with assessment and plan were documented in [facility] EMR. This encounter is for billing only. documented in this encounter [facility] 12-19-2024 History of Presen t illness Narrative Patient seen by me at [facility] in [place]. Complete documentation including history with assessment and plan were documented in [facility] EMR. This encounter is for billing only. documented in this encounter [facility] 12-18-2024 History of Presen t illness Narrative Patient seen by me at [facility] in [place]. Complete documentation including history with assessment and plan were documented in [facility] EMR. This encounter is for billing only. documented in this encounter [facility] 12-15-2024 History of Presen t illness Narrative [facility] billing documented in this encounter [facility] 12-14-2024 History of Presen t illness Narrative [facility] billing documented in this encounter [facility] 12-14-2024 Telephone encount er Note Patient is still at [facility]. I spoke to Karla, home health care case manager, and she stated that patient has a tentative discharge date on 12/25. He will be going to a facility after that. Karla is not sure which one. I will check back with her closer to that date. [facility] 12-14-2024 Miscellaneous Notes Formattin g of this note might be different from the original. Patient is still at [facility]. I spoke to Karla, home health care case manager, and she stated that patient has a tentative discharge date on 12/25. He will be going to a facility after that. Karla is not sure which one. I will check back with her closer to that date. Called and spoke with patients son to discuss scheduling hospital follow up appointment. Omar advised me that the patient will be in the hospital jail as a lot happened while he was hospitalized. Patient does not wish to schedule at this time. Thanks Attempted to call patient to schedule hospital follow up. Patients phone is restricted. Unable to lvm. Sent [employer] message. Thanks Will hold to contact patient s/p discharge. Thanks Pt remains admitted at this time. GI staff to contact pt for scheduling OV s/p discharge. Patient needs close follow up for repeat EGD for duodenal ulcer, had IR embolization of GDA. Currently in ICU. Thanks. documented in this encounter [facility] 12-13-2024 History of Presen t illness Narrative [facility] documented in this encounter [facility] 12-13-2024 Telephone encount er Note Called and spoke with patients son to discuss scheduling hospital follow up appointment. Omar advised me that the patient will be in the hospital jail as a lot happened while he was hospitalized. Patient does not wish to schedule at this time. Thanks [facility] 12-13-2024 Miscellaneous Notes Formattin g of this note might be different from the original. Called and spoke with patients son to discuss scheduling hospital follow up appointment. Omar advised me that the patient will be in the hospital jail as a lot happened while he was hospitalized. Patient does not wish to schedule at this time. Thanks Attempted to call patient to schedule hospital follow up. Patients phone is restricted. Unable to lvm. Sent [employer] message. Thanks Will hold to contact patient s/p discharge. Thanks Pt remains admitted at this time. GI staff to contact pt for scheduling OV s/p discharge. Patient needs close follow up for repeat EGD for duodenal ulcer, had IR embolization of GDA. Currently in ICU. Thanks. documented in this encounter [facility] 12-12-2024 History of Presen t illness Narrative [facility] documented in this encounter [facility] 12-11-2024 History of Presen t illness Narrative Seen at [facility] 12/11/24 documented in this encounter [facility] 12-11-2024 History of Presen t illness Narrative [facility] documented in this encounter [facility] 12-11-2024 Telephone encount er Note Attempted to call patient to schedule hospital follow up. Patients phone is restricted. Unable to lvm. Sent MyChart message. Thanks [facility] 12-11-2024 Miscellaneous Notes Formattin g of [...] in ICU. Thanks. documented in this encounter [facility] 12-07-2024 History of Presen t illness Narrative [facility] 12/07/24 documented in this encounter [facility] 12-06-2024 History of Presen t illness Narrative [facility] 12/06/24 documented in this encounter [facility] 12-04-2024 History of Presen t illness Narrative Follow[facility]up visit today at [facility] documented in this encounter [facility] 12-04-2024 History of Presen t illness Narrative [facility] 12/04/24 documented in this encounter [facility] 12-01-2024 History of Presen t illness Narrative [facility] 12/01/24 documented in this encounter [facility] 12-01-2024 History of Presen t illness Narrative I did a level 4 consult on this patient [facility]. In reviewing Dr. Garcia's note she noted acute systolic right heart failure related to and accompanied by pulmonary hypertension. She noted the need for midodrine. Dr. Chow waited on atrial flutter and atrial tachycardia. He was put on amiodarone and attempt was YG cardioversion, unsuccessful. The last electrocardiogram done at the [facility] showed atrial flutter. documented in this encounter [facility] 12-01-2024 History of Presen t illness Narrative [facility] documented in this encounter [facility] 11-30-2024 History of Presen t illness Narrative [facility] documented in this encounter [facility] 11-30-2024 History of Presen t illness Narrative [facility] 11/30/24 documented in this encounter [facility] 11-29-2024 History of Presen t illness Narrative [facility] 11/29/24 documented in this encounter [facility] 11-29-2024 History of Presen t illness Narrative [facility] documented in this encounter [facility] 11-28-2024 Telephone encount er Note Name of Caller: Herminia Contact Physician requesting Consult: Michelle Caruso APRN Patient Location (facility name, room, bed number): [facility], [address] Patient Diagnosis/Reason for Consult:SOB Provider being paged: Dr Nathan Time page was sent: [phone] Department of provider being paged: [facility] Page Content: routine consult requested. Message sent via Secure Chat [facility] 11-28-2024 Miscellaneous Notes Formattin g of this note might be different from the original. Name of Caller: Herminia Contact Physician requesting Consult: Michelle Caruso APRN Patient Location (facility name, room, bed number): [facility], 116 Patient Diagnosis/Reason for Consult:SOB Provider being paged: Dr Nahtan Time page was sent: [phone] Department of provider being paged: [facility] Page Content: routine consult requested. Message sent via Secure Chat documented in this encounter [facility] 10-17-2024 Telephone encount er Note Will hold to contact patient s/p discharge. Thanks [facility] 10-17-2024 Miscellaneous Notes Formattin g of this note might be different from the original. Will hold to contact patient s/p discharge. Thanks Pt remains admitted at this time. GI staff to contact pt for scheduling OV s/p discharge. Patient needs close follow up for repeat EGD for duodenal ulcer, had IR embolization of GDA. Currently in ICU. Thanks. documented in this encounter [facility] 10-17-2024 Miscellaneous Notes Formattin g of this note might be different from the original. Will hold to contact patient s/p discharge. Thanks Pt remains admitted at this time. GI staff to contact pt for scheduling OV s/p discharge. Patient needs close follow up for repeat EGD for duodenal ulcer, had IR embolization of GDA. Currently in ICU. Thanks. documented in this encounter [facility] [employer] 10-17-2024 Telephone encount er Note Pt remains admitted at this time. GI staff to contact pt for scheduling OV s/p discharge. [facility] [employer] 10-16-2024 Telephone encount er Note Patient needs close follow up for repeat EGD for duodenal ulcer, had IR embolization of GDA. Currently in ICU. Thanks. [employer] Phone: 10-16-2024 Miscellaneous Notes Formattin g of this note might be different from the original. Patient needs close follow up for repeat EGD for duodenal ulcer, had IR embolization of GDA. Currently in ICU. Thanks. documented in this encounter [facility] [employer] 10-12-2024 Note Formatting of this n ote is different from the original. Patient: Jair Snyder Procedure Summary Date: 10/12/24 Room / Location: [facility] Operating Room Anesthesia Start: 725 Anesthesia [...] once all PACU criteria has been met. [facility] 10-12-2024 Miscellaneous Notes Formattin g of this note is different from the original. Patient: Jair Snyder Procedure Summary Date: 10/12/24 Room / Location: [address] Operating Room Anesthesia Start: 725 Anesthesia [...] has been met. documented in this encounter [facility] 10-12-2024 Anesthesiology Postoperative evaluation and management note Patient: Jair Snyder Procedure Summary Date: 10/12/24 Room / Location: [address] Operating Room Anesthesia Start: 725 Anesthesia [...] opportunity for questions and acknowledgement of understanding. [employer] Phone: 10-12-2024 Surgical operatio n note Patient: Jair Snyder Procedure Summary Date: 10/12/24 Room / Location: [facility] Operating Room Anesthesia Start: 725 Anesthesia [...] during the procedure: no complications. Staffing Performed: PHARMACY TECHNICIAN Resident/PHARMACY TECHNICIAN: Rudolph German CRNA Associated Order(s): Airway Airway Date/Time: 10/12/2024 7:38 AM Urgency: scheduled Airway not difficult General Information and Staff Patient location during procedure: Procedural Anesthesiologist: Vincent Wilson MD Resident/PHARMACY TECHNICIAN: Rudolph German CRNA Performed: anesthesiologist Indications [...] procedure well with no complications. Staffing Performed: PHARMACY TECHNICIAN Resident/PHARMACY TECHNICIAN: Rudolph German CRNA Patient: Jair Snyder Procedure Information Date/Time: 10/12/24 0730 Procedures: AORTIC VALVE REPAIR, POSSIBLE REPLACEMENT (Chest) - 7:30 am, 5 hours TRICUSPID REPLACEMENT WITH RING (Chest) TRANSESOPHAGEAL ECHOCARDIOGRAM Location: [facility] Operating Room Surgeons: Luciano Montemayor MD [...] Medical History: 10/19/2019: Acute renal failure (ARF) ([facility]) 12/30/2021: Anemia 10/08/2023: Calcification of abdominal aorta ([facility]) Comment: 09/[address] abd 10/08/2023: Diverticulosis 10/26/2019: ESRD on hemodialysis ([facility]) ([facility]) No date: Hemodialysis patient ([facility]) ([facility]) 12/01/2022: HTN (hypertension) No date: Hypertension No date: IgA nephropathy 10/26/2019: IgA nephropathy determined by biopsy of kidney 10/08/2023: Missed vaccination due to patient refusal Comment: Has a number of non-scientific based beliefs which interfere with his understanding and acceptance of the medical benefit of vaccination. 10/08/2023: Nonrheumatic aortic valve stenosis 08/18/2023: Paroxysmal A-fib ([facility]) ([facility]) 10/08/2023: Tobacco abuse Past Surgical History: Past Surgical History: No date: APPENDECTOMY 10/09/2024: CARDIAC CATHETERIZATION; N/A Comment: Performed by Bob Watson MD at [facility] Cardiac Cath/EP Lab 09/15/2021: FISTULAGRAM (HISTORICAL); Left Comment: LEFT UPPER ARM No date: HX AV FISTULA CREATION 08/07/2022: IR FISTULAGRAM Comment: IR FISTULAGRAM 08/07/2022 [facility] IR IMAGING No date: TONSILLECTOMY (HISTORICAL) [...] Additional Equipment Requests documented in this encounter [facility] [employer] 10-12-2024 Procedure anesthe jaki Narrative Procedure Name [...] Per order 10/12/24 0737 by Rudolph German PHARMACY TECHNICIAN 10/16/24 0930 by Wanda Hays RN [...] Hunter Dove RN [id number] Anesthesiology procedure note* Anesthesia Procedure Notes - [...] during the procedure: no complications. Staffing Performed: PHARMACY TECHNICIAN Resident/PHARMACY TECHNICIAN: Rudolph German CRNA [facility]01-16-2025 Anesthesiology procedure note* Anesthesia Procedure Notes - Rudolph German CRNA - 10/12/2024 7:49 AM ESTAssociated Order(s): Airway Airway Date/Time: 10/12/2024 7:38 AM Urgency: scheduled Airway not difficult General Information and Staff Patient location during procedure: Procedural Anesthesiologist: Vincent Wilson MD Resident/PHARMACY TECHNICIAN: Rudolph German CRNA Performed: anesthesiologist Indications [...] 21 Number of attempts at approach: 1 [facility] [id number] Anesthesiology procedure note* Anesthesia Procedure Notes - [...] procedure well with no complications. Staffing Performed: PHARMACY TECHNICIAN Resident/PHARMACY TECHNICIAN: Rudolph German CRNA [facility] [id number] Anesthesiology Preoperative evaluation and management note* Anesthesia Preprocedure Evaluation - Vincent Wilson MD - 10/12/2024 6:56 AM EST Patient: Jair Snyder Procedure Information Date/Time: 10/12/24 0730 Procedures: AORTIC VALVE REPAIR, POSSIBLE REPLACEMENT (Chest) - 7:30 am, 5 hours TRICUSPID REPLACEMENT WITH RING (Chest) TRANSESOPHAGEAL ECHOCARDIOGRAM Location: [facility] Operating Room Surgeons: Luciano Montemayor MD Relevant Problems Cardio (+) Aortic stenosis (+) Atrial flutter, unspecified type (HCC) (+) Calcification of abdominal aorta (HCC) (+) HTN (hypertension) (+) Nonrheumatic aortic valve stenosis (+) Paroxysmal A-fib ([facility]) ([facility]) GI (+) Diverticulosis /Renal (+) ESRD on hemodialysis ([facility]) ([facility]) (+) IgA nephropathy determined by biopsy of kidney Past Medical History: Past Medical History: 10/19/2019: Acute renal failure (ARF) ([facility]) 12/30/2021: Anemia 10/08/2023: Calcification of abdominal aorta ([facility]) Comment: 09/[address] abd 10/08/2023: Diverticulosis 10/26/2019: ESRD on hemodialysis ([facility]) ([facility]) No date: Hemodialysis patient ([facility]) ([facility]) 12/01/2022: HTN (hypertension) No date: Hypertension No date: IgA nephropathy 10/26/2019: IgA nephropathy determined by biopsy of kidney 10/08/2023: Missed vaccination due to patient refusal Comment: Has a number of non-scientific based beliefs which interfere with his understanding and acceptance of the medical benefit of vaccination. 10/08/2023: Nonrheumatic aortic valve stenosis 08/18/2023: Paroxysmal A-fib ([facility]) ([facility]) 10/08/2023: Tobacco abuse Past Surgical History: Past Surgical History: No date: APPENDECTOMY 10/09/2024: CARDIAC CATHETERIZATION; N/A Comment: Performed by Bob Watson MD at [facility] Cardiac Cath/EP Lab 09/15/2021: FISTULAGRAM (HISTORICAL); Left Comment: LEFT UPPER ARM No date: HX AV FISTULA CREATION 08/07/2022: IR FISTULAGRAM Comment: IR FISTULAGRAM 08/07/2022 [facility] IR IMAGING No date: TONSILLECTOMY (HISTORICAL) [...] 10:45 AM Equipment Requests: Additional Equipment [facility]s [id number] History of Present illness Narrative* Jr Shah MD - 08/28/2024 3:15 PM EST Images from the original note were not included. [facility] CARDIOLOG[facility] - [address] [facility] [id number] Dept: [phone] Dept Visit type: Established : 1965 Reason for Visit: 6 Month Follow-up Assessment and Plan 1. Paroxysmal A-fib (CMS/HCC) ([facility]) Assessment & Plan: Paroxysmal. Infrequent episodes [...] Assessment & Plan: Says he is a "functioning alcoholic". Stopping drinking in 2019. -Recommend stay quit due to addiction and risk of bleeding. Follow up in about 6 months (around 02/26/2025) for [facility] f/u in [place]. Subjective Afib after admission 07/2023. ESRD on HD 3 days/week. Aortic stenosis. HTN. - all factors that could contribute to a fib. 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 He was going to [facility] to discuss renal transplant but stopped because they were "pushing that Covid vaccine shit". Hx of 1ppd smoker. 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 Has not followed up in a year. Today: HD on T TH Sat. He is oliguric. Afib Sxs: Has had 2-3 episodes that he knows of in the last year. Last break thru was a month ago. Some with dialysis but others at rest at home. One occurred for about an hour and he felt anxious, lying in bed. Says he feels he has a "cold" but not Covid. Started in his "sinuses" with drainage a month ago. Now feels his throat is sore due to the drainage from thick mucus. And also has a feeling of weakness and SOB. Says he has PCP f/u in Sep. D/w him that he can go to Urgent Care or the ED. Most of his Sxs sound upper respiratory but given length of time and concern for SOB/"weakness" he could also go to the ED. He says he may go to Urgent Care. Has concerns with how he is being treated at dialysis with the temperature too cold for him to breathe and they asked him to stop his space heater at dialysis. Tob abuse - 1ppd ETOH - none/quit. Pt would like to f/u in [place]. Was concerned about location and level of [...] History: Diagnosis Date Acute renal failure (ARF) ([facility]) 10/19/2019 Anemia 12/30/2021 Calcification of abdominal aorta ([facility]) 10/08/202309/[address] abd Diverticulosis 10/08/2023 ESRD on hemodialysis ([facility]) ([facility]) 10/26/2019 Hemodialysis patient ([facility]) ([facility]) HTN (hypertension) 12/01/2022 Hypertension IgA nephropathy IgA nephropathy determined by biopsy of kidney 10/26/2019 Missed vaccination due to patient refusal 10/08/2023 Has a number of non-scientific based beliefs which interfere with his understanding and acceptance of the medical benefit of vaccination. Nonrheumatic aortic valve stenosis 10/08/2023 Paroxysmal A-fib ([facility]) ([facility]) 08/18/2023 Tobacco abuse 10/08/2023 Social History Tobacco Use Smoking status: Every Day Current packs/day: 1.00 Types: Cigarettes Smokeless tobacco: Never Substance Use Topics Alcohol use: Not Currently Past Surgical History: Procedure Laterality Date APPENDECTOMY FISTULAGRAM (HISTORICAL) Left 09/15/2021 LEFT UPPER ARM HX AV FISTULA CREATION IR FISTULAGRAM 08/07/2022 IR FISTULAGRAM 08/07/2022 [facility] IR IMAGING TONSILLECTOMY (HISTORICAL) Family History Problem Relation Name Age of Onset No Known Problems Mother No Known Problems Father Objective Vitals: 08/28/24 1533 BP: 130/80 BP Location: Right arm Patient Position: Sitting BP Cuff Size: Adult Pulse: 75 Weight: 206 lb (93.4 kg) Height: 5' 10" (1.778 m) Physical Exam Vitals reviewed. Constitutional: [...] Shah MD I, Jr Shah MD, provided [facility] ongoing care for their single serious or complex condition described above. I assume responsibility for the patient's ongoing medical care for thiscondition(s). documented in this [facility]12-02-2024 Evaluation + Plan note* Assessment & Plan Note - Jr Shah MD - 08/28/2024 1:07 PM EST Associated Problem(s): Alcohol use disorder in remission Says he is a "functioning alcoholic". Stopping drinking in 2019. -Recommend stay quit due to addiction and risk of bleeding. [facility] [id number] Evaluation + Plan note* Assessment & Plan Note - Jr Shah MD - 08/28/2024 1:07 PM ESTAssociated Problem(s): Tobacco abuse 1 ppd. Recommend complete cessation. -Recommend CT lung cancer screening. [facility] [id number] Miscellaneous Notes* Assessment & Plan Note - Jr Shah MD - 08/28/2024 1:07 PM ESTAssociated Problem(s): Alcohol use disorder in remission Says he is a "functioning alcoholic". Stopping drinking in 2019. -Recommend stay quit [...] PM EST Associated Problem(s): Paroxysmal A-fib (CMS/HCC) ([facility]) Paroxysmal. Infrequent episodes that he feels, [...] ablation, watchman device, etc. documented in this [facility]12-02-2024 Evaluation + Plan note* Assessment & Plan [...] which will need to be carefully considered. [facility] [id number] Evaluation + Plan note* Assessment & Plan Note - Jr Shah MD - 08/28/2024 1:01 PM ESTAssociated Problem(s): Paroxysmal A-fib (CMS/HCC) ([facility]) Paroxysmal. Infrequent episodes that he feels, [...] see EP, discuss ablation, watchman device, etc. [facility] [id number] History of Present illness Narrative* Alan Barroso RN - 05/10/2024 2:38 PM EDT Dialysis center status inquiry form received from [facility]. Form completed and faxed back to ELIA Marin at [phone]. Patient was called 04/12/2024 but voicemail was full, letter was sent to please call the office at [phone] to complete intake. Referral was closed. Please have patient call the office to complete intake. JHONY Meier RN May 10, 2024 2:41 PM [facility] encounter Note * Telephone Encounter - Lanie Luis - 04/12/2024 11:49 AM EDT I called patient to start the kidney referral intake process. Voicemail is full, sent a letter out. Lanie [facility]07-17-2024 Miscellaneous Notes* Telephone Encounter - Lanie Luis - 04/12/2024 11:49 AM EDT I called patient to start the kidney referral intake process. Voicemail is full, sent a letter out. [facility] Telephone encounter Note * Telephone Encounter - Tracie Chin RN - 02/14/2024 10:23 AM EDT Called LM with pt with central scheduling number. Advised to call to schedule echo. [facility] [id number] Miscellaneous Notes* Telephone Encounter - Tracie Chin RN - 02/14/2024 10:23 AM EDT Called LM with pt with central scheduling number. Advised to call to schedule echo. * Telephone Encounter - Dorcas Pabon - 02/12/2024 10:28 AM EDT Unable to contact patient - called and lvm and sent mychart message for echo [employer] documented in this [facility]05-18-2024 Telephone encounter Note* Telephone Encounter - Dorcas Pabon - 02/12/2024 10:28 AM EDT Unable to contact patient - called and lvm and sent mychart message for echo [facility] [id number] Miscellaneous Notes* Telephone Encounter - Dorcas Pabon - 02/12/2024 10:28 AM EDT Unable to contact patient - called and lvm and sent mychart message for echo [employer] documented in this [place] [id number] Telephone encounter Note* Telephone Encounter - Dorcas Pabon - 02/12/2024 10:23 AM EDT Unable to contact patient to schedule CT lung screening - called and sent mychart message [facility] [facility] [id number] Miscellaneous Notes* Telephone Encounter - Dorcas Pabon - 02/12/2024 10:23 AM EDT Unable to contact patient to schedule CT lung screening - called and sent Bill[employer]st message [employer] documented in this [facility]02-16-2024 Evaluation + Plan note* Assessment & Plan Note - DENIA Dumont CNP - 11/12/2023 4:50 PM EST Associated Problem(s): Tobacco abuse 1 ppd. Recommend complete cessation. Consider CT lung cancer screening. [facility] [id number] Miscellaneous Notes* Assessment & Plan Note - [...] * Assessment & Plan Note - DENIA Dmuont CNP - 11/12/2023 4:42 PM EST Associated [...] than just dialysis days. documented in this [facility]02-16-2024 Evaluation + Plan note* Assessment & Plan Note - DENIA Dumont CNP - 11/12/2023 4:48 PM EST Associated Problem(s): Calcification of abdominal aorta (HCC) Sep 2023, by chart review this is the only ASCVD finding. Utility of lipid- lowering agent controversial in ESRD and does not appear to be improved with moderate intensity statins. -expectant mgt [facility] [id number] Evaluation + Plan note* Assessment & Plan Note - DENIA Dumont CNP - 11/12/2023 4:48 PM ESTAssociated Problem(s): HTN (hypertension) Goal BP < 130/80 mmHg. BP today in office borderline. -continues on toprol XL -mgt per PCP and renal [place] [id number] Evaluation + Plan note* Assessment & Plan [...] cardiac intervention that he is open to. [place] [id number] Evaluation + Plan note* Assessment & Plan [...] dose overall, rather than just dialysis days. [facility] [id number] History of Present illness Narrative* DENIA Dumont CNP - 11/12/2023 1:30 PM EST Images from the original note were not included. [facility] [address] [place] [address] [address] [facility] [address] Dept: [phone] Dept Loc: [phone] Visit type: Established : 1965 Reason for [...] he is open to. 2. Paroxysmal A-fib (CMS/HCC) ([facility]) Assessment & Plan: Paroxysmal. 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 He was going to [facility] to discuss renal transplant but stopped because they were "pushing that Covid vaccine shit". Hx of 1ppd smoker. Drinks ETOH, amount [...] the other hand, a mechanical valve with jail OAC carries its own risks. Today: He [...] History: Diagnosis Date Acute renal failure (ARF) ([facility]) 10/19/2019 Anemia 12/30/2021 Calcification of abdominal aorta ([facility]) 10/08/202309/[address] abd Diverticulosis 10/08/2023 ESRD on hemodialysis ([facility]) ([facility]) 10/26/2019 Hemodialysis patient ([facility]) ([facility]) HTN (hypertension) 12/01/2022 Hypertension IgA nephropathy [...] Weight: 208 lb (94.3 kg) Height: 5' 10" (1.778 m) Physical Exam Constitutional: Appearance: Normal [...] TSH 1.190 08/17/2023 No results found for: "CHOL" No results found for: "HDL" No results found for: "LDLCALC" No results found for: "TRIG" No results found for: "CHOLHDL" No results found for: "HGBA1C" Wt Readings from Last 3 Encounters: 11/12/23 [...] PM DENIA Dumont CNP documented in this [facility]02-05-2024 Telephone encounter Note* Telephone Encounter - Sydni Rodrigues - 11/01/2023 9:41 AM EST Called pt lmom for a return call to set up appt [facility] [id number] Miscellaneous Notes* Telephone Encounter - Syndi Rodrigues - 11/01/2023 9:41 AM EST Called [...] 10/14/2023 7:58 AM EST Preferred contact number: [phone] Reason for Visit: Jun called in to cancel his appt this morning. He woke up and is very sick. Please contact him to reschedule. Urgency of Appointment: office visit documented in this [facility]01-22-2024 Telephone encounter Note* Telephone Encounter - Sydni Rodrigues - 10/18/2023 2:34 PM EST Called pt LMOM for a return call to set up appt [facility] [id number] Telephone encounter Note* Telephone Encounter - Sydni Rodrigues - 10/14/2023 8:56 AM EST Called pt LMOM for a return call to r/s appt [facility] [id number] Telephone encounter Note* Telephone Encounter - Regino Ortiz - 10/14/2023 7:58 AM EST Preferred contact number: [phone] Reason for Visit: Jun called in to cancel his appt this morning. He woke up and is very sick. Please contact him to reschedule. Urgency of Appointment: office visit [facility] CenterZbuukg16-19-4522 Telephone encounter Note* Telephone Encounter - Darya Payne - 08/23/2023 1:47 PM EST 2nd attempt to schedule, no answer, left message. [facility] [id number] Miscellaneous Notes* Telephone Encounter - Darya Payne [...] 8:30 AM EST ----- Patient discharged from [facility]. Please assist with s/p hosp "[facility]," okay within the next ~week. Thanks! documented in this [facility]11-22-2023 Telephone encounter Note* Telephone Encounter - Darya Payne - 08/18/2023 2:13 PM EST Left message requesting a call back from the patient to schedule appointment. [facility] CenterPytmvn69-57-8573 Telephone encounter Note* Telephone Encounter - Darya Payne - 08/18/2023 2:12 PM EST ----- Message from DENIA Dumont CNP sent at 08/18/2023 8:30 AM EST ----- Patient discharged from [facility]. Please assist with s/p hosp "[facility]," okay within the next ~week. Thanks! [place] [id number] Emergency department Note* Mary Ann Meraz RN - 08/17/2023 3:11 PM EST Patient education given in regard to medications, as well as following-up with PCP. Patient given eliquis information packet, understanding well. Mary Ann Meraz RN 08/17/231510 [id number] Emergency department Note* Mary Ann Meraz RN - 08/17/2023 3:11 PM EST Patient education given in regard to medications, as well as following-up with PCP. Patient given eliquis information packet, understanding well. Mary Ann Meraz RN 08/17/231510 * Dangelo Horne DO - 08/16/2023 6:16 PM EST Emergency Department Encounter [facility] ED Patient: Jun Snyder : 1965 [...] 08/16/2023 6:16 PM EST Emergency Department Encounter [facility] ED Patient: Jun Snyder : 1965 [...] CREATION IR FISTULAGRAM 08/07/2022 IR FISTULAGRAM 08/07/2022 SB IR IMAGING TONSILLECTOMY (HISTORICAL) Social History Socioeconomic [...] gross facial drooping. No obvious neurologic deficits. Sales And Leasing Agent strength symmetrical. Moves all 4 extremities spontaneously. [...] 364 ms QTC Interval 491 ms P Dalzell degrees QRS Dalzell 61 degrees T Wave Dalzell -20 degrees IA Interval ms Radiographs: XR chest 1 view Final Result 1. Cardiomegaly. 2. No other acute findings. Report Dictated on Electronically Signed By: Justo Milan MD Electronically Signed Date/Time: 08/16/2023 6:42 PM EST : EKG: All EKG's areinterpreted by the Emergency Department Physician in the absence of a thermospray operator. see their note for interpretation of EKG. [...] for new onset A-fib. Patient excepted to [facility]. Final Diagnosis: 1. New onset a-fib (CMS/[facility]) ([facility]) Medications - No data to display Diagnoses as of 08/16/232129 New onset a-fib (CMS/[facility]) ([facility]) CRITICAL CARE TIME CONSULTS: None PROCEDURES: Unless otherwise noted below, none Procedures DISPOSITION/PLAN Admit 08/16/2023 08:09:48 PM PATIENT REFERRED TO: No follow-up provider specified. DISCHARGE MEDICATIONS: New Prescriptions No medications on file @[facility]7936,[id number]:LAST:1)@ (Please note: Portions of this note were completed with a voice recognition program. Efforts were made to edit the dictations but occasionally words and phrases are mis-transcribed.) Form [id number] Sha Granados PA-C [employer] Sha Granados PA-C 08/16/232129 documented in this [facility]11-21-2023 Hospital Discharge instructions* Discharge Instr - Other Orders* DENIA Lorenzo CNP - 08/17/2023 3:02 PM EST Please discontinue Labetalol and Caduet; see discharge medication list Next dialysis session is 08/18/23 as previously instructed * Attachments The following attachments cannot be sent through Care Everywhere. * Atrial Fibrillation (Spanish) * Going Home on Blood Thinners (Spanish) * Apixaban, ADULT (Spanish) documented in this [facility]11-21-2023 History of Present illness Narrative* Dorcas Chin, CERTIFIED FLEX ENDOSCOPE REPROCESSOR - SALVAGER - 08/17/2023 11:00 AM EST Images from [...] Past Medical History: Diagnosis Date Hemodialysis patient ([facility]) (HCC) Hypertension IgA nephropathy LABS: CBC: Recent Labs 08/16/231842 WBC 9.5 RBC 4.60 HGB 14.5 HCT 41.6 MCV 90.5 RDW 14.7* PLT 254 BMP: Recent Labs 08/16/23184208/17/23 0058 NA 133* 134* K 4.5 5.0 CL 93* 94* CO2 25 26 BUN 40* 46* CREATININE 6.01* 6.78* GLUCOSE 110* 102* CALCIUM 9.1 8.7 ANIONGAP 15* 15* LIVER PROFILE:No results for input(s): "AST", "ALT", "BILITOT", "ALKPHOS", "PROT" in the last 72 hours. No lab exists for component: "LABALBU" PT/INR: No results for input(s): "PROTIME", "INR" in the last 72 hours. CARDIAC ENZYMES: Recent Labs 08/16/23 1843 08/16/23 2200 08/17/23 0058 TROPONINI 0.037* 0.062* 0.094* Procalcitonin: No results found for: "PROCAL" COVID-19 PCR: No results for input(s): "COVID19" in the last 72 hours. Objective: Vitals: BP 108/55 (BP Location: Right leg) Pulse 80 Temp 37.2 C (99 F) (Temporal) Resp 16 Ht 5' 10" (1.778 m) Wt 200 lb (90.7 kg) [...] Information Primary Emergency Contact: Alexx Snyder [address]: [address] [place] [address] of [place] Relation: Child DENIA Lorenzo CNP Division of Hospitalist Medicine Inpatient Medical Services/[facility] Comment: Please note this report has been [...] reflects time of documentation. documented in this [facility]11-21-2023 Consult note* Rj Villela MD - 08/17/2023 10:16 AM ESTAssociated Order(s): IP CONSULT TO CARDIOLOGY [facility] CARDIOLOGY CONSULTATION Patient Name: Jun Snyder : [...] left heart disease. Rj [place]la M.D., F.A.C.C. Car Dryer Chief, Division of Cardiac Imaging Clinical Garden Tractor Mechanic, [facility] Data Collection Cardiac Testin08/16/23 ECG 12-LEAD [...] Weight: 200 lb (90.7 kg) Height: 5' 10" (1.778 m) No intake or output data [...] alert. Psychiatric: Mood and Affect: Mood normal. [employer] Work Phone: 1(366) 473-439411-21-2023 Consult note* Rj Villela MD - 08/17/2023 10:16 AM ESTAssociated Order(s): IP CONSULT TO CARDIOLOGY Primary Data CARDIOLOGY CONSULTATION Patient Name: Jun Snyder : [...] left heart disease. Rj [place]illela M.D., F.A.C.C. Car Dryer Chief, Division of Cardiac Imaging Clinical Garden Tractor Mechanic, [facility] Data Collection Cardiac Testin08/16/23 ECG 12-LEAD [...] a past medical history of Hemodialysis patient ([facility]) (HCC), Hypertension, and IgA nephropathy. He has [...] Weight: 200 lb (90.7 kg) Height: 5' 10" (1.778 m) No intake or output data [...] and Affect: Mood normal. documented in this [facility]11-20-2023 History and physical note* Earlene Irving MD - 08/16/2023 8:38 PM EST Images from the original note were not included. History and Physical [facility] Jun Snyder : 1965 AGE 57 [...] WedAug 16, 2023 8:09 PM (Active) Physician Bag Builder: Sha Granados PA-C, starting on WedAug 16, [...] him When he was getting dialysis his signal operator technical detected irregular rhythm suspected A-fib and referred [...] Hemodialysis patient (CMS/HCC) (HCC) Hypertension IgA nephropathy Past Surgical History: [...] 08/16/2023 364 QTC Interval 08/16/2023 491 QRS Dalzell 08/16/2023 61 T Wave Dalzell 08/16/2023 -20 SODIUM 08/16/2023 133 (L) POTASSIUM [...] QT Interval 364 QTC Interval 491 P Dalzell QRS Dalzell 61 T Wave Dalzell -20 IA Interval Impression ATRIAL FIBRILLATION, V-RATE 88-139 INCOMPLETE [...] monitor him on telemetry asked cardiology to [facility] we will additionally request echocardiogram. He is not experiencing chest pain but he is a current smoker and I do not see a recent cardiac work-up in the computer EKG on admission did confirm atrial fibrillation but he is currently in sinus rhythm Anticoagulation yet to be determined His current [id number] score would be 1 based upon history [...] to due risk bleed/procedure 08/16/2023 Jun Snyder [id number] Any scheduled follow up appointments No future appointments. Extended Emergency Contact Information Primary Emergency Contact: Alexx Snyder Address: [address] [place] [address] States of [place] Relation: Child Portions of this note may be electronically transcribed. Please forward a copy of this H&P to the primary care physician. [facility] [id number] History and physical note* Earlene Irving MD - 08/16/2023 8:38 PM EST Images from the original note were not included. History and Physical [facility] Jun Snyder : 1965 AGE 57 [...] WedAug 16, 2023 8:09 PM (Active) Physician Bag Builder: Sha Granados PA-C, starting on WedAug 16, [...] him When he was getting dialysis his signal operator technical detected irregular rhythm suspected A-fib and referred [...] Past Medical History: Diagnosis Date Hemodialysis patient ([facility]) (HCC) Hypertension IgA nephropathy Past Surgical History: Procedure Laterality Date APPENDECTOMY FISTULAGRAM (HISTORICAL) Left 09/15/2021 LEFT UPPER ARM HX AV FISTULA CREATION IR FISTULAGRAM 08/07/2022 IR FISTULAGRAM 08/07/2022 [facility] IR IMAGING TONSILLECTOMY (HISTORICAL) Allergies Allergen [...] 08/16/2023 364 QTC Interval 08/16/2023 491 QRS Dalzell 08/16/2023 61 T Wave Dalzell 08/16/2023 -20 SODIUM 08/16/2023 133 (L) POTASSIUM [...] QT Interval 364 QTC Interval 491 P Dalzell QRS Dalzell 61 T Wave Dalzell -20 IA Interval Impression ATRIAL FIBRILLATION, V-RATE 88-139 INCOMPLETE [...] monitor him on telemetry asked cardiology to [facility] we will additionally request echocardiogram. He is not experiencing chest pain but he is a current smoker and I do not see a recent cardiac work-up in the computer EKG on admission did confirm atrial fibrillation but he is currently in sinus rhythm Anticoagulation yet to be determined His current WFE4SS2-RENw score would be 1 based upon history [...] to due risk bleed/procedure 08/16/2023 Jun Snyder [id number] Any scheduled follow up appointments No future appointments. Extended Emergency Contact Information Primary Emergency Contact: Alexx Snyder Address: [address] [place] [address] [facility] Mobile Relation: Child Portions of this note may be electronically transcribed. Please forward a copy of this H&P to the primary care physician. documented in this [facility]11-20-2023 Physician Emergency department Note* Dangelo Horne DO - 08/16/2023 6:16 PM EST Emergency Department Encounter [facility] ED Patient: Jun Snyder : 1965 [...] for clarification.) Dangelo Horne DO Acute Care [facility] Dangelo Horne DO 08/16/231922 Dangelo Horne DO 08/16/231957 [employer] Phone: 1(492) 815-867611-20-2023 Physician Emergency department Note* Sha Granados PA-C - 08/16/2023 6:16 PM EST Emergency Department Encounter [facility] ED Patient: Jun Snyder : 1965 [...] some recent hyperkalemia and high Phosphorus levels. ANDREAFSKI I was wearing a N95, Surgical mask for [...] gross facial drooping. No obvious neurologic deficits. Sales And Leasing Agent strength symmetrical. Moves all 4 extremities spontaneously. [...] 364 ms QTC Interval 491 ms P Dalzell degrees QRS Dalzell 61 degrees T Wave Dalzell -20 degrees IA Interval ms Radiographs: XR chest 1 view Final Result 1. Cardiomegaly. 2. No other acute findings. Report Dictated on Electronically Signed By: Justo Milan MD Electronically Signed Date/Time: 08/16/2023 6:42 PM EST : EKG: All EKG's areinterpreted by the Emergency Department Physician in the absence of a thermospray operator. see their note for interpretation of EKG. [...] for new onset A-fib. Patient excepted to [facility]. Final Diagnosis: 1. New onset a-fib (CMS/HCC) ([facility]) Medications - No data to display Diagnoses as of 08/16/232129 New onset a-fib (CMS/HCC) ([facility]) CRITICAL CARE TIME CONSULTS: None PROCEDURES: Unless otherwise noted below, none Procedures DISPOSITION/PLAN Admit 08/16/2023 08:09:48 PM PATIENT REFERRED TO: No follow-up provider specified. DISCHARGE MEDICATIONS: New Prescriptions No medications on file @[facility]([id number]:LAST:1)@ (Please note: Portions of this note were completed with a voice recognition program. Efforts were made to edit the dictations but occasionally words and phrases are mis-transcribed.) Form [id number] Sha Granados PA-C [facility] Care [facility] Sha Granados PA-C 08/16/232129 [facility]08-05-2023 Hospital Discharge instructions* Discharge Instructions* Jese Frank [...] petroleum jelly on it. documented in this [facility]08-05-2023 Emergency department Note* Jese Frank MD - [...] kg (200 lb) Height: 1.778 m (5' 10") Physical Exam Vitals and nursing note reviewed. [...] ESRD (end stage renal disease) on dialysis ([facility]) * No order type specified * [...] ESRD (end stage renal disease) on dialysis ([facility]) DISPOSITION/PLAN DISPOSITION Discharge 05/01/2023 08:15:56 PM PATIENT REFERRED TO: Daryn Loomis MD [address] [facility] [address] In 1 week [facility] Cardiac, Thoracic [facility] Vascular Specialties [address] [place] [address] [address]ound [address] [address] I prescribed: New Prescriptions EMOLLIENT [...] that bleeds occasionally. Patient was seen in [facility] a month ago for the same problem. Bed locked and low position, call light within reach. Patient has no further needs. documented in this [facility]08-05-2023 Emergency department Triage note* Sony Dacosta RN - 05/01/2023 7:35 PM EDT Patient to ER room 6 without difficulty. Patient is a dialysis patient Wednesday and Wednesday. Patient had dialysis today . Has small sore close to dialysis site that bleeds occasionally. Patient was seen in [facility] a month ago for the same problem. Bed locked and low position, call light within reach. Patient has no further needs. [facility] CenterDvejzu81-19-7342 Physician Emergency department Note* Jese Frank MD [...] kg (200 lb) Height: 1.778 m (5' 10") Physical Exam Vitals and nursing note reviewed. [...] ESRD (end stage renal disease) on dialysis ([facility]) * No order type specified * [...] ESRD (end stage renal disease) on dialysis ([facility]) DISPOSITION/PLAN DISPOSITION Discharge 05/01/2023 08:15:56 PM PATIENT REFERRED TO: Daryn Loomis MD [address] [facility] [address] In 1 week [facility] Cardiac, Thoracic [facility] Vascular Specialties [address] [place] [address] Wound Care [address] [address] I prescribed: New Prescriptions EMOLLIENT [...] inappropriate) JESE FRANK MD (electronically signed) Jese rFank MD 05/01/232038 [facility] CenterGriqfj12-87-9674 Miscellaneous Notes* Telephone Encounter - Karly Fortune Pss - 01/01/2022 2:36 PM EDT I scheduled him w/ Dr. reid on WednesdayFebruary 16 and left him a detailed vm that I did. This is all have at [facility] we are in to March and jair needs a Wednesday or Wednesday bc of dialysis I am sorry, I don't have solution or advise for hospital schedule issues. Next best thing is to discuss with Naomi. May be when Dr. King or Marti come in for special cases to [facility], can this case beincluded at that time. Or if you cancel [facility] schedule and make room for me to come to [facility] any day I can get this done. Thanks! * Telephone Encounter - Karly Fortune Pss - 12/30/2021 10:36 AM EDT Antonio I had him scheduled for his colon w/ you for next WednesdayJanuary 05 but Peggy ramirez said he has to be done at [facility] bc of his hgb. I have no openings at [facility] and I don't know what to do Can you please let me know how to proceed. Thank you Eryn AMELIE I NEED A NEW COLON ORDER FOR [facility] Miscellaneous Notes* Telephone Encounter - Karly Fortune Pss - 12/30/2021 9:33 AM EDT Antonio Painter saw a patient the other day and he ordered him a colon for blood loss anemia I scheduled him for [facility] but his hgb is 6 so Charo wants him at [facility] . He is also on dialysisand could only do a Wednesday. All docs are booked until March You had a cancellation for next . Can I please put him w/ you? Thank you Eryn documented in this [facility]-04-2022 Miscellaneous Notes* Telephone Encounter - Karly Fortune Pss - 12/29/2021 4:18 PM EDT Hello I know this patient saw Inocencio the other day as a new patient. I have him scheduled her and his hgb is 6 Could you please do an order for me? I have to get him on tayo Thanks Eryn documented in this [facility]03-31-2022 History of Present illness Narrative* Rudy Painter [...] for internal providers or letter via the [employer] Postal Service for external providers. HPI: Jun Snyder [...] CKD (chronic kidney disease) Dialysis T//Sat @ [facility], Home hemodialysis since 09/2019 Diverticulosis [...] Examination: BP 130/72 Pulse 70 Ht 5' 10" (1.78m) Wt 220 lb (99.8kg) BMI 31.57 [...] 12/25/21 TIME: 3:56 PM documented in this [facility]01-31-2020 History of Present illness Narrative* Miracle Jaramillo RN - 10/27/2019 9:00 PM EST Patient left via wheelchair with family member. Pt left with all of documented belongings. * Blane Lei RN - 10/27/2019 2:30 PM EST Patient Name: Glenn Snyder Patient : 1965 Acct: [id number] Date of Admission: 10/19/2019 Room/Bed: [address] [place] [address] Code Status: Full Code Allergies: Allergies Allergen [...] (Bicarb): 35 Na+ Modeling: Not Applicable Dialyzer: [id number] Dialysate Temperature (C): 36 Blood Flow Rate [...] Bowel Sounds (All Quadrants) Edema Pain Level 10/27/191409 0 3 Regular Unlabored None (Room air) [...] - Before each treatment: Dialysis Machine No.: [id number] RO Machine No.: [id number] Dialyzer Lot No.: [id number] RO Machine Log Sheet Completed: Yes Machine Alarm Self Test: Completed;Passed (10/27/191409) Machine Autotest: Completed, Passed Air Foam Detector: Tested, Proper Function, pH Reading Extracorporeal Circuit Tested for Integrity: Yes Machine Conductivity: 13.9 Manual Conductivity: 13.7 Machine Ph: 7 Manual Ph: 7 Bleach Test (Neg): Yes Bath Temperature: 96.8 F (36 C) Tubing Lot#: [id number] Conductivity Meter Serial #: [id number] [employer] Secure?: Yes Venous Parameters Set?: [...] Pedraza MD - 10/27/2019 11:26 AM EST [facility] Progress Note SUBJECTIVE: Glenn Snyder [...] (37.2 C) (Temporal) Resp 14 Ht 5' 10" (1.778 m) Wt 188 lb 12.8 oz [...] never had kidney Bx and never saw signal operator technical before BLOSSOM might be from CKD progression [...] . Pt is likely ESRD. Pt on [facility] HD schedule. Last HD session 10/25 Next HD session today Pt has HD spot at [facility]. 2- Hyperkalemia: resolved with HD 3-high anion gap acidosis likely from CKD and BLOSSOM Resolved with HD 4- Hyperphosphatemia: Continue Phosphorus binder 5- HTN: Improved with HD. Continue same BP meds Monitor BP Ok to d/c patient from nephro stand point Will continue to follow Please call if any question at [phone] JEANA PEDRAZA MD 10/27/2019 11:26 AM * [...] (37 C) (Temporal) Resp 16 Ht 5' 10" (1.778 m) Wt 188 lb 12.8 oz [...] never had kidney Bx and never saw signal operator technical before BLOSSOM might be from CKD progression [...] follow Please call if any question at [phone] JEANA PEDRAZA MD 10/26/2019 4:25 PM * Kimber Bajwa RN - 10/26/2019 10:46 AM EST Patient returned from US renal biopsy. VSS, see record. Ines is dry and intact to right flank area. Patient instructed on need for bedrest until 12:45. * Darell Sanches, - 10/26/2019 8:19 AM EST Hospitalist Progress Note 10/26/2019 8:19 AM [phone]: Please page me ([phone]) for patient care issues. [phone]: Please page [facility] night Hospitalist for any [...] (37.4 C) (Temporal) Resp 12 Ht 5' 10" (1.778 m) Wt188 lb 12.8 oz (85.6 [...] lab Plan -daily weights, I&Os, dialysis per signal operator technical -renal biopsy and dialysis cath pending, signal operator technical following -am labs, replace lytes prn -increase activity -DVT prophylaxis: [] Lovenox [x] Heparin [] SCDs [x] Encourage ambulation [] Already on Anticoagulation Advance Directive: Full Code Discharge planning: Awaiting dialysis cath and renal biopsy. Can be discharge once outpatient dialysis arrangements have been made Darell Sanches DO Division of Hospitalist Medicine Inpatient Medical Services PAGER: [phone] * Ivett Cope RN - 10/25/2019 4:23 PM ROSA ELENA BREEN was under the impression that these were [...] be done Wednesday. Forwarded this information to JAMSHID, Dr Sanches. Pt placed NPO at midnight. Today, pt dialysis began around 11am and did not complete until 345pm, at which time it was too late for either procedure to be performed by IR. I informed them when dialysis began and ended. IR stated that they would plan to do the tunneled cath "sometime tomorrow" but that they may not be able [...] and discharge needs Received a call from [facility] regarding pt dialysis chair spot. Was informed that they willhave a spot for the pt on Wednesday of next week. I explained that plans are for pt to receive tunneled dialysis cath tomorrow, 10/26/2019. She stated that he will have a spot on Wednesday, Oct 30 for dialysis * Ellie Mireles [...] 5. Fluid Accumulation-No significant fluid accumulation, 6. Sales And Leasing Agent Strength-Normal Nutrition Risk Level: High Nutrient Needs: Estimated Daily Total Kcal: 2847-9851 Estimated Daily Protein (g): 60-90 Estimated Daily Total Fluid (ml/day): per md Nutrition Diagnosis: Problem: Altered nutrition-related lab values, Predicted suboptimal energy intake, Increased nutrient needs Etiology: related to Renal dysfunction ? Signs and symptoms: as evidenced by Known losses from dialysis, Weight loss, Lab values Objective Information: Nutrition-Focused Physical Findings: appetite improved, no edema, bun 39 , creat 9.71, wbc11.3psmex0.3,on renvela tid- NO DRY WT EST. off 2.6 liters since adm for 6 lbs Wound Type: None Current Nutrition Therapies: Oral Diet Orders: Renal Oral Diet intake: 76-100%, 51-75% Oral Nutrition Supplement (ONS) Orders: None ONS intake: Anthropometric Measures: Ht: 5' 10" (177.8 cm) Current Body Wt: 201 lb (91.2 kg) Admission Body Wt: 220 lb (99.8 kg)(10/19) Usual Body Wt: 220 lb (99.8 kg)(summer 2018) % Weight Change: , na [place] Body Wt: 166 lb (75.3 kg), % [place] Body 121 Adjusted Body Wt: , body [...] EST Hospitalist Progress Note 10/25/2019 5:02 PM [phone]: Please page me ([phone]) for patient care issues. [phone]: Please page [facility] night Hospitalist for any issues. Subjective: Admit [...] (36.7 C) (Temporal) Resp 20 Ht 5' 10" (1.778 m) Wt188 lb 12.8 oz (85.6 [...] lab Plan -daily weights, I&Os, dialysis per signal operator technical -renal biopsy and dialysis cath pending, signal operator technical following -am labs, replace lytes prn -increase activity -DVT prophylaxis: [] Lovenox [x] Heparin [] SCDs [x] Encourage ambulation [] Already on Anticoagulation Advance Directive: Full Code Discharge planning: awaiting dialysis cath and renal biopsy Darell Sanches DO Division of Hospitalist Medicine Inpatient Medical Services PAGER: [phone] * Ramon Mei RN - 10/25/2019 11:46 AM EST Patient Name: Glenn Snyder Patient : 1965 Acct: [id number] Date of Admission: 10/19/2019 Room/Bed: 156/1561 Code [...] (Bicarb): 35 Na+ Modeling: Not Applicable Dialyzer: [id number] Dialysate Temperature (C): 36 Blood Flow Rate [...] None 0 10/25/19 1124 tx started 10/25/19 112 no complaints from pt 10/25/19 1523 0 3 Regular Unlabored Clear Appropriate for ethnicity Warm;Dry Fair Soft;Rounded Nonept has no complaints 10/25/19 1524 tx ended, blood returned 0 10/25/19 152 [...] - Before each treatment: Dialysis Machine No.: [id number] RO Machine No.: [id number] Dialyzer Lot No.: [id number] RO Machine Log Sheet Completed: Yes Machine Alarm Self Test: Completed;Passed (10/25/191119) Machine Autotest: Completed, Passed Air Foam Detector: Tested, Proper Function, pH Reading Extracorporeal Circuit Tested for Integrity: Yes Machine Conductivity: 14 Manual Conductivity: 14.1 Machine Ph: 7 Manual Ph: 7 Bleach Test (Neg): Yes Bath Temperature: 96.8 F (36 C) Tubing Lot#: [id number] Conductivity Meter Serial #: [id number] All Connections Secure?: Yes Venous Parameters Set?: Yes Arterial Parameters Set?: Yes Saline Line Double Clamped?: Yes Air Foam Detector Engaged?: Yes Machine Functioning Alarm Free? Yes Prime Given: 200ml Chlorine Testing - Before each treatment and every 4 hours: Treatment Treatment Number: 4 Time On: 1123 Time Off: 1523 Treatment Goal: 2500 Weight: 188 lb 12.8 oz (85.6 kg) (10/25/19 152) 1st check: less than 0.1 ppm at: [...] Provider Notification Reason for Communication: Evaluate (10/25/19 124) Provider Name: Keila (10/25/19 124) Provider Notification: [...] Pedraza MD - 10/25/2019 7:58 AM EST [facility] Progress Note SUBJECTIVE: Glenn Snyder [...] (37.5 C) (Temporal) Resp 20 Ht 5' 10" (1.778 m) Wt 201 lb 11.5 oz [...] never had kidney Bx and never saw signal operator technical before BLOSSOM might be from CKD progression Vs RPGN .Doubt the patient has obstructive uropathy since there is no hydronephrosis by CT. CT showed b/l moderate renal atrophy UA showed 200 protein with RBC 6-11. C3C4 are wnl. Hepatitis panel negative. HIV serology is negative. CIARAN, ANCA are negative too Kidney BX was scheduled by my partner Dr. Patle to evaluate the kidneys salvageability . I [...] follow Please call if any question at [phone] JEANA PEDRAZA MD 10/25/2019 7:58 AM * [...] EST Hospitalist Progress Note 10/24/2019 11:38 AM [phone]: Please page me ([phone]) for patient care issues. [phone]: Please page [facility] night Hospitalist for any [...] (37.3 C) (Temporal) Resp 18 Ht 5' 10" (1.778 m) Wt201 lb 11.5 oz (91.5 [...] lab Plan -daily weights, I&Os, dialysis per signal operator technical -renal biopsy and dialysis cath pending, signal operator technical following -am labs, replace lytes prn -increase activity -DVT prophylaxis: [] Lovenox [x] Heparin [] SCDs [x] Encourage ambulation [] Already on Anticoagulation Advance Directive: Full Code Discharge planning: ok to discharge today pending renal biopsy and dialysis cath placement Darell Sanches DO Division of Hospitalist Medicine Inpatient Medical Services PAGER: [phone] * Ivett Cope, RN - 10/24/2019 10:48 AM EST Microbiology called, pt has 3x blood cultures drawn on 10/19. One came back with Gram positive [email or web address] message sent to [facility] Dr Sanches regarding results * Jeana Pedraza MD - 10/24/2019 9:15 AM EST [facility] Progress Note SUBJECTIVE: Glnen Snyder is a 53 y.o. male who [...] (37.3 C) (Temporal) Resp 18 Ht 5' 10" (1.778 m) Wt 201 lb 11.5 oz [...] never had kidney Bx and never saw signal operator technical before BLOSSOM might be from CKD progression [...] finding Pt is likely ESRD. Pt on [facility] HD schedule. Lat HD session 10/23. Next [...] follow Please call if any question at [phone] JEANA PEDRAZA MD 10/24/2019 9:15 AM * Radha Foreman, RN - 10/23/2019 7:21 PM EST Patient Name: Glenn Snyder Patient : 1965 Acct: [id number] Date of Admission: 10/19/2019 Room/Bed: 222/2225 Code [...] HBsAb: Date Drawn: HBsAb not drawn not applicable2019 Results: Unknown Order Dialysis Bath K+ (Potassium): 2 Ca+ (Calcium): 2.5 Na+ (Sodium): 138 HCO3 (Bicarb): 35 Na+ Modeling: Not Applicable Dialyzer: [id number] Dialysate Temperature (C): 35 Blood Flow Rate [...] Unlabored Appropriate for ethnicity Warm;Dry Soft None 10/23/191709 0 3 Regular Unlabored None (Room air) [...] - Before each treatment: Dialysis Machine No.: [id number] RO Machine No.: [id number] Dialyzer Lot No.: [id number] RO Machine Log Sheet Completed: Yes Machine Alarm Self Test: Completed;Passed (10/23/191709) Machine Autotest: Completed, Passed Air Foam Detector: Tested, Proper Function, pH Reading Extracorporeal Circuit Tested for Integrity: Yes Machine Conductivity: 13.7 Manual Conductivity: 13.6 Machine Ph: 7 Manual Ph: 7 Bleach Test (Neg): Yes Bath Temperature: 95 F (35 C) Tubing Lot#: [id number] Conductivity Meter Serial #: [id number] All Connections Secure?: Yes Venous Parameters Set?: [...] then check every 30 minutes from secondary) Comment", Waited for RN supervisor diagnostic for 2nd water check. Access Flows and [...] chips. Family/ friends in room Yes 10/23/19 1930 400 ml/min 380 ml/hr 654 ml -140 mmHg 140 40 13.7 800 Pt stable, talking to friends/family in room Yes 10/23/191932 Bicarb changed. Manual conductivity 13.4, pH 7.0 Yes 10/23/19 194 400 ml/min 380 ml/hr 737 ml -150 [...] 115/72 88 10/23/19 1800 135/85 89 10/23/19 181 (!) 142/82 86 10/23/19 1830 (!) 144/90 85 10/23/19 1845 136/84 84 10/23/19 1900 137/84 81 10/23/19 1915 129/72 85 10/23/19 1930 (!) 155/85 80 [...] Patel MD - 10/23/2019 4:54 PM EST [facility] Progress Note SUBJECTIVE: Glenn Snyder [...] (36.9 C) (Oral) Resp 18 Ht 5' 10" (1.778 m) Wt 197 lb (89.4 kg) [...] renal failure (ARF) (HCC) 10/19/2019 ASSESSMENT/PLAN: 1. Renal failure, most likely chronic. Discussed with patient in detail. 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 Currently not working. Every annual [...] insurance for which he is working with SW. All questions answered. Total time spent - 20 min answering questions. Hold heparin in anticipation of biopsy. 2. HTN. meds adjusted Line needs to be changed to tunneled when ready for dc Cindy Patel MD 10/23/2019 4:54 PM * Darell Sanches DO - 10/23/2019 2:02 PM EST Hospitalist Progress Note 10/23/2019 5:02 PM [phone]: Please page me ([phone]) for patient care issues. [phone]: Please page [facility] night Hospitalist for any [...] (36.9 C) (Oral) Resp 18 Ht 5' 10" (1.778 m) Wt197 lb (89.4 kg) SpO2 [...] anemia Plan -daily weights, I&Os, dialysis per signal operator technical -renal biopsy and temp dialysis cath pending, signal operator technical to arrabge -am labs, replace lytes prn -increase activity -DVT prophylaxis: [] Lovenox [x] Heparin [] SCDs [x] Encourage ambulation [] Already on Anticoagulation Advance Directive: Full Code Discharge planning: likely discharge in next 24 hours Darell Sanches DO Division of Hospitalist Medicine Inpatient Medical Services PAGER: [phone] * Darell Sanches DO - 10/22/2019 2:17 PM EST Hospitalist Progress Note 10/22/2019 2:17 PM [phone]: Please page me ([phone]) for patient care issues. [phone]: Please page [facility] night Hospitalist for any [...] (37.1 C) (Oral) Resp 20 Ht 5' 10" (1.778 m) Wt 196lb 3.2 oz (89 [...] anemia Plan -daily weights, I&Os, dialysis per signal operator technical -discussed with patient and he is willing to have the renal bx done. Will notify signal operator technical -am labs, replace lytes prn -increase activity -DVT prophylaxis: [] Lovenox [x] Heparin [] SCDs [x] Encourage ambulation [] Already on Anticoagulation Advance Directive: Full Code Discharge planning: likely discharge in next 1-2 days after renal biopsy Darell Sanches DO Division of Hospitalist Medicine Inpatient Medical Services PAGER: [phone] * Randolph Euceda MD - 10/22/2019 12:46 PM EST [facility] [address] [place] [address] Progress Note Subjective: Patient seen [...] (37.1 C) (Oral) Resp 20 Ht 5' 10" (1.778 m) Wt 196 lb 3.2oz (89 kg) SpO2 98% BMI 28.15 kg/m [...] petechiae Data: Labs: Recent Labs 10/20/19 0408 10/20/197 10/21/19 0532 10/22/19 0430 WBC 9.0 -- -- 9.8 9.3 HGB 6.6* < > 9.0* 9.7* 9.4* HCT 19.3* < > 25.2* 27.6* 27.7* MCV 86.2 -- -- 84.8 86.7 PLT 267 -- -- 299 264 < > = values in this interval not displayed. Recent Labs 10/20/19 04010/20/19184610/21/19 0532 10/22/19 0430 NA 136 135 135 [...] EST Hospitalist Progress Note 10/21/2019 10:35 PM [phone]: Please page me ([phone]) for patient care issues. 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 10/20 1501 - 10/21 1500 In: 1200 Out: 2535 [Urine:250] Vitals: BP (!) 159/91 Pulse 95 Temp 98.6 F (37 C) (Oral) Resp 18 Ht 5' 10" (1.778 m) Wt 181 lb (82.1 kg) [...] of Hospitalist Medicine Inpatient Medical Services PAGER: [phone] * Randolph Euceda MD - 10/21/2019 1:44 PM EST [facility] [address] [place] [address] Progress Note Subjective: Patient seen and examined today. We are following this patient for No c/o no cp/sob Scheduled Meds: sodium chloride 20 mL Intravenous Once sodium chloride flush 3 mL Intravenous Q8H Continuous Infusions: PRN Meds:hydrALAZINE, heparin (porcine), heparin (porcine) Vitals: BP (!) 160/96 Pulse 95 Temp 97.8 F (36.6 C) Resp 18 Ht 5' 10" (1.778 m) Wt 196 lb 10.4 oz(89.2 [...] Name: Glenn Snyder Patient : 1965 Acct: [id number] Date of Admission: 10/19/2019 Room/Bed: [address] [place] [address] Code Status: Full Code Allergies: No Known [...] HCO3 (Bicarb): 35 Na+ Modeling: NA Dialyzer: [id number] Dialysate Temperature (C): 36 Blood Flow Rate [...] Regular Unlabored None (Room air) Expiratory wheezes Emerald Dry;Warm Distended;Rounded;Soft Audible Generalized 0 10/21/19 1300 0 3 Regular Unlabored None (Room air) Clear;Diminished [place] Dry;Warm Distended;Rounded;Soft Active Generalized 0 Labs Recent [...] - Before each treatment: Dialysis Machine No.: [id number] RO Machine No.: [id number] Dialyzer Lot No.: [id number] RO Machine Log Sheet Completed: Yes Machine Alarm Self Test: Completed;Passed (10/21/19 0940) Machine Autotest: Completed, Passed Air Foam Detector: Tested, Proper Function, pH Reading Extracorporeal Circuit Tested for Integrity: Yes Machine Conductivity: 13.7 Manual Conductivity: 13.8 Machine Ph: 7 Manual Ph: 7 Bleach Test (Neg): Yes Bath Temperature: 96.8 F (36 C) Tubing Lot#: [id number] Conductivity Meter Serial #: [id number] All Connections Secure?: Yes Venous Parameters Set?: [...] Name: Glenn Snyder Patient : 1965 Acct: [id number] Date of Admission: 10/19/2019 Room/Bed: [address] [place] [address] Code Status: Full Code Allergies: No Known [...] (Bicarb): 35 Na+ Modeling: Not Applicable Dialyzer: [id number] Dialysate Temperature (C): 36 Blood Flow Rate [...] x3 Regular Unlabored None (Room air) Clear Emerald Dry;Warm Good Soft Active None 0 10/20/19 [...] - Before each treatment: Dialysis Machine No.: [id number] RO Machine No.: [id number] Dialyzer Lot No.: [id number] RO Machine Log Sheet Completed: Yes Machine Alarm Self Test: Completed;Passed (10/20/19 1525) Machine Autotest: Completed, Passed Air Foam Detector: Tested, Proper Function, pH Reading Extracorporeal Circuit Tested for Integrity: Yes Machine Conductivity: 13.6 Manual Conductivity: 13.6 Machine Ph: 7 Manual Ph: 7 Bleach Test (Neg): Yes Bath Temperature: 96.8 F (36 C) Tubing Lot#: [id number] Conductivity Meter Serial #: [id number] All Connections Secure?: Yes Venous Parameters Set?: [...] Pedraza MD - 10/20/2019 2:42 PM EST [facility] Progress Note SUBJECTIVE: Glenn Snyedr is a 53 y.o. male who is [...] (36.5 C) (Oral) Resp 13 Ht 5' 10" (1.778 m) Wt 220 lb 0.3 oz [...] never had kidney Bx and never saw signal operator technical before BLOSSOM might be from CKD progression [...] follow Please call if any question at [phone] JEANA PEDRAZA MD 10/20/2019 2:43 PM * Dorcas Chin APRN - CNP - 10/20/2019 12:03 PM EST Patient transferred from ICU to [facility] service * Brett Encarnacion MD - 10/20/2019 [...] (36.7 C) (Oral) Resp 13 Ht 5' 10" (1.778 m) Wt 220 lb 0.3 oz [...] []Injected [x]Non-Injected / Pinnae [x]Normal []Other/ Dentitian []Gambell Teeth []Dentures Oral Mucosa [x]Emerald [x]Moist []Dry/ Oral ETT []Present [x]Absent Neck: [...] [x]Absent/ GUAN ([x]RUE [x]RLE [x]LUE [x]LLE) Neurologic: [place] []Yes [x]No Corneal reflexes []Present []Absent / [...] Ordering Physician MD ENCARNACION MATTHEW Accession Number [id number] CPT4 Codes 68261 () Reason For Exam line placement/vascath Report [...] 5. Fluid Accumulation-No significant fluid accumulation, 6. Sales And Leasing Agent Strength-Not measured Nutrition Risk Level: High Nutrient Needs: Estimated Daily Total Kcal: 5539-9707 Estimated Daily Protein (g): 60-90 Estimated Daily [...] None ONS intake: Anthropometric Measures: Ht: 5' 10" (177.8 cm) Current Body Wt: 220 lb (99.8 kg) Admission Body Wt: Usual Body Wt: (na) % Weight Change: , na [place] Body Wt: 166 lb (75.3 kg), % [place] Body 132 Adjusted Body Wt: , body [...] Name: Glenn Snyder Patient : 1965 Acct: [id number] Date of Admission: 10/19/2019 Room/Bed: [address] [place] [address] Code Status: No Order Allergies: No Known [...] (Bicarb): 40 Na+ Modeling: Not Applicable Dialyzer: [id number] Dialysate Temperature (C): 36 Blood Flow Rate [...] - Before each treatment: Dialysis Machine No.: [id number] RO Machine No.: [id number] Dialyzer Lot No.: [id number] RO Machine Log Sheet Completed: Yes Machine Alarm Self Test: Completed;Passed (10/19/19 1245) Machine Autotest: Completed, Passed Air Foam Detector: Proper Function, Tested, pH Reading Extracorporeal Circuit Tested for Integrity: Yes Machine Conductivity: 13.8 Manual Conductivity: 13.7 Machine Ph: 7 Manual Ph: 7 Bleach Test (Neg): Yes Bath Temperature: 96.8 F (36 C) Tubing Lot#: [id number] Conductivity Meter Serial #: [id number] All Connections Secure?: Yes Venous Parameters Set?: [...] to Education: Verbalized Understanding documented in this encounterSUMMA Work Phone: [phone] Hospital course Narrative* Darell Sanches DO - 10/27/2019 11:23 AM EST Hospitalist [...] to presentation. Admitted to ICU, seen by signal operator technical and HD initiated. Stabilized and transferred out [...] (37.2 C) (Temporal) Resp 14 Ht 5' 10" (1.778 m) Wt188 lb 12.8 oz (85.6 [...] Medications: Glenn Snyder Home Medication Instructions JOSE M:[id number] Printed on:10/27/19 1129 Medication Information amLODIPine (NORVASC) 5 MG tablet Take 1 tablet by mouth daily metoprolol tartrate (LOPRESSOR) 25 MG tablet Take 0.5 tablets by mouth 2 times daily sevelamer (RENVELA) 800 MG tablet Take 2 tablets by mouth 3 times daily (with meals) Recommended Follow-up: signal operator technical In 3 weeks post hospital fu appt Brenton Mckeon MD [address] [place] [address] In 2 weeks post hospital fu appt Readmission Risk Risk of Unplanned Readmission: 15 Complexity of Follow up: ? Moderate Complexity: follow up within 7-14 calendar days (16474) ? Severe Complexity: follow up within 7 calendar days (81134) Follow up Testing, Pending results or Referrals [...] frame. Signed: Darell Sanches DO Division of Hospitalist Medicine Inpatient Medical Services 10/27/2019, 11:23 AM documented in this encounterSUMMA Work Phone: [phone] Hospital Discharge instructions* Discharge Instr - Activity* [...] most local grocery stores, pharmacies, and chain super-stores. ? If you have any questions about your diet or nutrition, call the hospital and ask for the dietitian. * Discharge Instr - Lab* Sophia Bai RN - 10/24/2019 2:21 PM EST [facility] [phone] offer services including medical, dental, [facility], behavioral health and a reduced-rate pharmacy. Fees are based on current income and family size. Please refer to your handout for additional information and all location options. [address] [place] [address] Wednesday 8 AM 6 PM Wednesday 8 AM 2 PM Hemodialysis will be Wednesday, Wednesday and Wednesday at [facility] located at [address] [place] [address] or [phone] Please arrive at 9:45 am * Additional [...] through Care Everywhere. * Kidney Biopsy: Post-op (Spanish) documented in this encounterSUMMA Work Phone: Evaluation note* Diagnosis Acute kidney injury (HCC)- Primary Acute kidney failure, unspecified Uncontrolled hypertension Unspecified essential hypertension Normocytic anemia Anemia, unspecified Angioedema, initial encounter Hyperkalemia Hyperpotassemia Metabolic acidosis Acidosis Rectal bleeding Hemorrhage of rectum and anus Acute renal failure (ARF) (HCC) Acute kidney failure, unspecified documented in this encounter [facility] Work Phone: Evaluation note* Diagnosis Acute blood loss anemia- Primary Acute posthemorrhagic anemia Rectal bleeding Hemorrhage of rectum and anus [facility]* Diagnosis Other iron deficiency anemia- Primary Rectal bleeding Hemorrhage of rectum and anus [facility]* Diagnosis Skin sore- Primary ESRD (end stage renal disease) on dialysis (HCC) End stage renal disease [facility] Diagnosis New onset a-fib (CMS/HCC) (HCC)- Primary Atrial fibrillation New onset a-fib (CMS/HCC) (HCC) Atrial fibrillation Atrial fibrillation, persistent (HCC) [facility]* Diagnosis Nonrheumatic aortic valve stenosis- Primary Paroxysmal A-fib (CMS/HCC) (HCC) Primary hypertension Unspecified essential hypertension Calcification of abdominal aorta (HCC) Tobacco abuse Tobacco use disorder ESRD on hemodialysis (CMS/HCC) (HCC) [facility] Diagnosis Personal history of nicotine dependence- Primary Nicotine dependence, cigarettes, uncomplicated [facility] Diagnosis Paroxysmal A-fib (CMS/HCC) (HCC)- Primary [...] disorder in remission [facility] Diagnosis Paroxysmal A-fib (CMS/HCC) (HCC)- Primary [...] chronic bronchitis type (HCC) ESRD on hemodialysis ([facility]/HCC) (HCC) [facility] Diagnosis Paroxysmal A-fib (CMS/HCC) (HCC)- Primary Nonrheumatic aortic valve stenosis Primary hypertension Unspecified essential hypertension ESRD on hemodialysis ([facility]/HCC) (HCC) Calcification of abdominal aorta (HCC) Tobacco abuse Tobacco use disorder Nonrheumatic aortic valve stenosis- Primary Paroxysmal A-fib (CMS/HCC) (HCC) Primary hypertension Unspecified essential hypertension Calcification of abdominal aorta (HCC) Tobacco abuse Tobacco use disorder ESRD on hemodialysis ([facility]/HCC) (HCC) Paroxysmal A-fib (CMS/HCC) (HCC)- Primary Nonrheumatic aortic valve stenosis Tobacco abuse Tobacco use disorder Alcohol use disorder in remission Peritonitis due to fungus (HCC)- Primary History of abdominal surgery S/P AVR 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, 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) Leg DVT (deep venous thromboembolism), acute, left (HCC) Anemia, unspecified type [facility]* Diagnosis Paroxysmal A-fib (CMS/HCC) [...] pulmonale present (HCC) [facility] Diagnosis Paroxysmal A-fib (CMS/HCC) [...] aortic valve stenosis documented in this encounter [facility]* Diagnosis Paroxysmal A-fib (CMS/HCC) (HCC)- Primary [...] respiratory syncytial virus (RSV) ESRD on hemodialysis (CMS/HCC) (HCC) Pulmonary embolism, other, unspecified chronicity, unspecified whether acute cor pulmonale present (HCC) Nonrheumatic aortic valve stenosis documented in this encounter [facility]* Diagnosis Paroxysmal A-fib (CMS/HCC) (HCC)- Primary [...] aortic valve stenosis documented in this encounter [facility]* Diagnosis Paroxysmal A-fib (CMS/HCC) (HCC)- [...] not elsewhere classified documented in this encounter [facility]* Diagnosis Paroxysmal A-fib (CMS/HCC) (HCC)- [...] not elsewhere classified documented in this encounter [facility]* Diagnosis Paroxysmal A-fib (CMS/HCC) (HCC)- [...] Alcohol use disorder in 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) Calcification of abdominal aorta (HCC) Tobacco abuse Tobacco use disorder Nonrheumatic aortic valve stenosis- Primary Paroxysmal A-fib (CMS/HCC) ([facility]) Primary hypertension Unspecified essential hypertension Calcification of abdominal aorta (HCC) Tobacco abuse Tobacco use disorder ESRD on hemodialysis ([facility]) ([facility]) Paroxysmal A-fib (CMS/HCC) ([facility])- Primary Nonrheumatic aortic valve stenosis Tobacco abuse Tobacco use disorder Alcohol use disorder in remission Acute respiratory failure with hypoxia (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) ([facility]) Calcification of abdominal aorta (HCC) Tobacco abuse Tobacco use disorder Nonrheumatic aortic valve stenosis- Primary Paroxysmal A-fib (CMS/HCC) ([facility]) Primary hypertension Unspecified essential hypertension Calcification of abdominal aorta (HCC) Tobacco abuse Tobacco use disorder ESRD on hemodialysis ([facility]) (HCC) Paroxysmal A-fib (CMS/HCC) (HCC)- Primary Nonrheumatic aortic valve stenosis Tobacco abuse Tobacco use disorder Alcohol use disorder in remission RSV (acute bronchiolitis due to respiratory syncytial virus)- Primary Acute bronchiolitis due to respiratory syncytial virus (RSV) 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[facility]) Tracheostomy status Acute respiratory failure with hypoxia ([facility]) [J96.01] Leg DVT (deep venous thromboembolism), [...] Staphylococcus aureus (MSSA), unspecified part of lung ([facility]) Acute respiratory failure with hypoxia ([facility]) [J96.01] Nonrheumatic aortic valve stenosis Pulmonary embolism, unspecified chronicity, unspecified pulmonary embolism type, unspecified whether acute cor pulmonale present ([facility]) [facility]* Diagnosis Paroxysmal A-fib (CMS/HCC) [...] Alcohol use disorder in remission 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[facility])- Primary Tracheostomy status ESRD on hemodialysis (CMS/HCC) (HCC) [facility] (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 Decubitus ulcer of sacral region, unstageable (HCC) Sacral osteomyelitis (CMS/HCC) (HCC) documented [facility]* Diagnosis Paroxysmal A-fib (CMS/HCC) (HCC)- Primary Nonrheumatic aortic valve stenosis Primary hypertension Unspecified essential hypertension ESRD on hemodialysis (CMS/HCC) (HCC) Calcification of abdominal aorta (HCC) Tobacco abuse Tobacco use disorder Nonrheumatic aortic valve stenosis- Primary Paroxysmal A-fib (CMS/HCC) ([facility]) Primary hypertension Unspecified essential hypertension Calcification of abdominal aorta (HCC) Tobacco abuse Tobacco use disorder ESRD on hemodialysis (CMS/HCC) (HCC) Paroxysmal A-fib (CMS/HCC) (HCC)- Primary Nonrheumatic aortic valve stenosis Tobacco abuse Tobacco use disorder Alcohol use disorder in remission Acute respiratory failure with hypoxia ([facility]) [J96.01]- Primary RSV (acute bronchiolitis due to respiratory syncytial virus) Acute bronchiolitis due to respiratory syncytial virus (RSV) 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[facility]) Tracheostomy status Leg DVT (deep venous thromboembolism), acute, left ([facility]) Pulmonary embolism, unspecified chronicity, unspecified pulmonary embolism type, unspecified whether acute cor pulmonale present ([facility]) S/P AVR documented in this encounter [facility] [...] Decubitus ulcer of sacral region, unstageable (HCC) [facility] (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 [facility] noteNo assessment information availableWHolmes [facility] Work Phone: Evaluation note* Diagnosis [...] remission Hemoptysis- Primary documented in this encounter [facility]* Diagnosis Paroxysmal A-fib (CMS/HCC) (HCC)- [...] hypoxia (HCC) [J96.01] documented in this encounter [facility] Discharge instructions* Instructions* Fabiola Huitron RN - [...] or dog food bags, or a vacuum machinery cleaner. Your dressing will be removed at [...] call and ask for the Interventional Radiologist control clerk auditing. Where can you learn more? Go to [email or web address] and sign in to your [employer] account. Enter P616 in the Search Health Information box to learn more about Hemodialysis Access: What to Expect at Home. If you do not have an account, please click on the "Sign Up Now" link. Current as of: August 12, 2016 Content Version: 11.2 [id number] [employer]. Care instructions adapted under license by [employer]. If youhave questions about a medical condition or this instruction, always ask your healthcare professional. [employer] disclaims any warranty or liability for your use of this information. [facility]: Reason for referral (narrative)* Outpatient Procedure (Routine) - Authorized Specialty Diagnoses / Procedures Referred By Contjayant t Referred To Contact [facility] Diagnoses Acute blood loss anemia Rectal bleeding Procedures COLONOSCOPY DIAGNOSTIC COLONOSCOPY FLX DX W/COLLJ SPEC WHEN PFRMD Rudy Painter MD [address] [place] [address] [facility] [address] [place] [address] Referral ID Status Reason Start Date Expiration Date Visits Requested Visits Authorized [id number] Authorized Auto-Generat ed Referral 12/25/2021 12/25/2022 1 1 [facility] for referral (narrative)* Outpatient Procedure (Routine) - Authorized Specialty Diagnoses / Procedures Referred By Contac t Referred To Contact [facility] Diagnoses Other iron deficiency anemia Rectal bleeding Procedures COLONOSCOPY DIAGNOSTIC COLONOSCOPY FLX DX W/COLLJ SPEC WHEN PFRudy Menendez MD [address] [place] [address] [facility] [address] [place] [address] Referral ID Status Reason Start Date Expiration Date Visits Requested Visits Authorized [id number] Authorized Auto-Generat ed Referral 12/30/2021 12/30/2022 1 1 [facility] for referral (narrative)* Consultation (Routine) - Pending Review Specialty Diagnoses / Procedures Referred By Contac t Referred To Contact W[facility] Diagnoses Skin sore Procedures IA OFFICE/OUTPATIENT [facility] MDM 60-74 MINUTES Jese Frank MD [address] [place] [address] [facility] [address] [place] [address] Referral ID Status Reason Start Date Expiration Date Visits Requested Visits Authorized [id number] Pending Review Specialty Services Required 05/01/2023 04/30/2024 1 1 [facility] for referral (narrative)No reason for referral information availableWHolmes County [facility] Work Phone: Reason for visit Narrative* Auth/Cert (Routine) Specialty Diagnoses / Procedures Referred By Contac t Referred To Contact Diagnoses Atrial flutter, unspecified type (HCC) Procedures . Ramón Romano MD [address] [place] [address] Phone: tel: fax: [facility] ED [address] [place] [address] Phone: tel: Referral ID Status Reason Start Date Expiration Date Visits Re quested Visits Authorized [id number] 1 1 [facility] Health Assessments Diagnosis Chronic kidney disease, stage [...] home documented in this encounter Advance Directives No Advanced Directives Records FoundLatest Code Status on File Code Status Date Activated Date Inactivated Comments Full Code 10/20/2019 11:35 AM 10/28/2019 4:18 AM Latest Code Status on File Code Status Date Activated Date Inactivated Comments Full Code 10/20/2019 11:35 AM Documents on File Type Date Recorded Patient Brass Roller Expl anation Advance Directive(s) 11/22/2020 11:20 AM Advance Directive(s) 06/12/2020 8:15 AM Advance Directive(s) 03/20/2020 7:16 AM Documents on File Type Date Recorded Patient Brass Roller Expl anation Advance Directive(s) 11/22/2020 11:20 AM Advance Directive(s) 06/12/2020 8:15 AM Advance Directive(s) 03/20/2020 7:16 AM Documents on File Type Date Recorded Patient Brass Roller Expl anation Power of Services Tech 02/14/2023 1:37 PM Advance Directives and Livin g Will 02/14/2023 1:37 PM Documents on File Type Date Recorded Patient Brass Roller Expl anation Power of Services Tech 02/14/2023 1:37 PM Advance Directives and Livin [...] Documents on File Type Date Recorded Patient Brass Roller Expl anation Advance Directives and Livin g Will 10/03/2024 11:27 AM Power of Services Tech 02/14/2023 1:37 PM Advance Directives and Livin g Will 02/14/2023 1:37 PM Date Activated Date Inactivated Comments 10/03/2024 6:19 PM Date Activated Date Inactivated Comments 08/17/2023 12:04 AM 08/17/2023 5:18 PM Documents on File Type Date Recorded Patient Brass Roller Expl anation Advance Directives and Livin g Will 10/03/2024 11:27 AM Power of Services Tech 02/14/2023 1:37 PM Advance Directives and Livin [...] Communication Omar Lillian Child Health Care Agent [id number] (Mobile) Healthcare Agents on File Name Relationship Healthcare [...] Communication Omar Lillian Child Health Care Agent [phone] (Mobile) Healthcare Agents on File Name Relationship Healthcare [...] Documents on File Type Date Recorded Patient Brass Roller Expl anation Power of Services Tech 01/24/2025 12:29 PM Advance Directives and Livin g Will 10/03/2024 11:27 AM Power of Services Tech 02/14/2023 1:37 PM Advance Directives and Livin [...] Lillian Child Health Care Agent Toma Mcneil [facility] Alternate Health Care Agent Documents on File Type Date Recorded Patient Brass Roller Expl anation Power of Services Tech 01/24/2025 12:29 PM Advance Directives and Livin g Will 10/03/2024 11:27 AM Power of Services Tech 02/14/2023 1:37 PM Advance Directives and Livin [...] Omar Lillian Child Health Care Agent [facility] Care Agent Healthcare Agents on File Name Relationship Healthcare Agent Relationshi p Communication Omar Lillian Child Health Care Agent [facility] Alternate Health Care Agent Healthcare Agents [...] Omar Lillian Child Health Care Agent Toma Tarun [facility] Alternate Health Care Agent Date [...] CT lung screening low dose Fransisco Pineda, CERTIFIED FLEX ENDOSCOPE REPROCESSOR [address] [place] [address] Referral ID Status Reason Start Date Expiration Date V isits Requested Visits Authorized [id number] Authorized 09/07/2023 09/06/2024 1 1 Chief Complaint and Reason for Visit Chief Complaint Admit Date LABWORK February 05, 2025 5:56a m Chief Complaint Admit Date LABWORK February 05, 2025 5:56a m LABOWRK February 07, 2025 5:00a m JAIL LAB WORK February 15, 2025 5:0 0am JAIL LAB WORK February 20, 2025 4:0 0am Additional Source Comments Source Comments (unrecognize d section and content) In the event this informatio n is protected by the [facility] Confidentiality of Alcohol and Drug Abuse Patient Records regulations: The Federal rules restrict any use of the information to criminally investigate or prosecute any alcohol or drug abuse patient.[facility] the event this information is protected by the Federal Confidentiality of Alcohol and Drug Abuse Patient Records regulations: The Federal rules restrict any use of the information to criminally investigate or prosecute any alcohol or drug abuse patient.[facility]imaIn the event this information is protected by the Federal Confidentiality of Alcohol and Drug Abuse Patient Records regulations: The Federal rules restrict any use of the information to criminally investigate or prosecute any alcohol or drug abuse patient.[facility]imaIn the event this information is protected by the Federal Confidentiality of Alcohol and Drug Abuse Patient Records regulations: The Federal rules restrict any use of the information to criminally investigate or prosecute any alcohol or drug abuse patient.[facility]imaIn the event this information is protected by the Federal Confidentiality of Alcohol and Drug Abuse Patient Records regulations: The Federal rules restrict any use of the information to criminally investigate or prosecute any alcohol or drug abuse patient.[facility]ima[facility] the event this information is protected by the Federal Confidentiality of Alcohol and Drug Abuse Patient Records regulations: The Federal rules restrict any use of the information to criminally investigate or prosecute any alcohol or drug abuse patient.[facility]imaIn the event this information is protected by the Federal Confidentiality of Alcohol and Drug Abuse Patient Records regulations: The Federal rules restrict any use of the information to criminally investigate or prosecute any alcohol or drug abuse patient.[facility]imaIn the event this information is protected by the Federal Confidentiality of Alcohol and Drug Abuse Patient Records regulations: The Federal rules restrict any use of the information to criminally investigate or prosecute any alcohol or drug abuse patient.[facility] (unrecognized sect ion and content) No Status Records FoundNo Status Records FoundNo Status Records FoundNo Status Records FoundNo Status Records FoundNo Status Records Found INFORMATION SOURCE (unrecogn ized section and content) DATE CREATED AUTHOR 11/26/2020 [facility] DATE CREATED AUTHOR AUTHOR'S ORGANIZ ATION 09/18/2021 [facility] DATE CREATED AUTHOR AUTHOR'S ORGANIZ ATION 12/18/2022 [facility] DATE CREATED AUTHOR AUTHOR'S ORGANIZ ATION 04/16/2024 [facility] DATE CREATED AUTHOR AUTHOR'S ORGANIZ ATION 03/09/2025 [facility] DATE CREATED AUTHOR AUTHOR'S ORGANIZ ATION 03/10/2025 [facility] [employer] s tem [facility] Continuous Active and Recently Administ ered Medications (unrecognized section and content) Medication Order 09/13/2021 09/14/2021 09/15/2021 0.9 % sodium chloride infusion IntraVENous, at 50 mL/hr, CONTINUOUS, Starting on 09/15/21 at 0945, Pre-op (day of surgery) 0955 (New Bag - Prov ider: Marjorie Menjivar RN) PRN Medication Order 09/13/2021 09/14/2021 09/15/2021 lidocaine PF 1 % injection (COMPLETED) ONCE PRN, Starting on 09/15/21 at 1048, For 1 dose 1048 (Given [...] Oral, 2 times daily, First dose on 08/17/23 at 1235, Anticoagulant 1315 (Given - Provid [...] sodium chloride 0.9 % 100 mL IVPB (Add-Arcanum) 3,000 mg, IntraVENous, at 200 mL/hr, Administer over 30 Minutes, Every 24 hours, First dose on Wed01/25/25 at 1700, ADD-Arcanum bag, Suspected Indication (Select all that apply): Bone and Joint Infection 1838 (New Bag - Provider: Miriam Reza, SWEETIE)2012 (Stopped - Provider: Casandra Rose RN) 1645 (New Bag - Provider: Angella Ley, SWEETIE)1715 (Due: Stopped - Provider: Angella Ley RN) 1700 (Canceled Entry - Provider: Automatic Discharge Provider - Comment: Automatically canceled at discontinue of medication order) ampicillin-sulbactam (Unasyn) 3,000 mg in sodium chloride 0.9 % 100 mL IVPB (Add-Arcanum) (CANCELED) 3,000 mg, IntraVENous, at 200 mL/hr, Administer over 30 Minutes, Every 24 hours, First dose on Wed02/01/25 at 1030, For 13 days, ADD-Arcanum bag, Suspected Indication (Select all that apply): [...] Reza RN)2204 (Medication Removed - Provider: Casandra Rose, SWEETIE) 0900 (Canceled Entry - Provider: Automatic Discharge [...] Jaimes RN) 0815 (Given - Provider: Kristine Donato, SWEETIE) midodrine (Proamatine) tablet 10 mg 10 mg, Oral, 2 times daily, First dose on Wed01/26/25 at 2100 1038 (Given - Provider: Miriam Reza RN)2023 (Given - Provider: Casandra Rose RN) 1529 (Not Given - Provider: Angella Ley RN - Reason: Other - Comment: dialysis)2042 (Given - Provider: Leilani Jaimes RN) 0815 (Given - Provider: Kristine Donato, SWEETIE) sodium chloride 0.9% (NS) flush 10 mL 10 mL, IntraCATHeter, Every 12 hours, First dose on Wed01/31/25 at 1615, Administer to each lumen. Line Care. Use 10 mL or larger syringe. 1615 (Canceled Entry - Provider: Automatic Discharge Provider - Comment: Automatically canceled at discontinue of medication order) 0321 (Given - Provider: Leilani Thoedore, RN)1615 (Canceled Entry - Provider: Automatic Discharge Provider - Comment: Automatically canceled at discontinue of medication order) warfarin (Coumadin) tablet 0.5 mg (COMPLETED) 0.5 mg, Oral, Once Warfarin, On Wed01/31/25 at 1700, For 1 dose 1645 (Given - Provider: Angella Ley RN) warfarin (Coumadin) tablet 0.5 mg 0.5 mg, Oral, Once Warfarin, On Brigid 02/01/25 at 1700, For 1 dose 1700 (Canceled [...] Jun Borrero MD) lidocaine-EPINEPHrine (Xylocaine W/EPI) 1 %-[id number] injection (COMPLETED) As needed, Starting on Wed01/30/25 [...] pupils, Starting on Wed01/19/25 at 0614, +++notify control clerk auditing provider if used+++ oxyCODONE (Roxicodone) immediate release [...] 0825 (Given - Provider: Shasta Sinclair RN) 08 (Given - Provider: Ochoa Johnson RN) 912 (Given - Provider: Tyson Freeman RN) dextrose 50 % solution 50 mL (COMPLETED) [...] per dr hurtado)2119 (Given - Provider: Rudolph Najera RN) 830 (Given - Provider: Ochoa Johnson RN)2122 (Given - Provider: Rosio Bey RN) 09 (Given - Provider: Tyson Freeman RN) pantoprazole (ProtoNix) EC tablet 40 mg 40 mg, Oral, 2 times daily before meals, First dose (after last modification) on 02/28/25 at 1600, Do not crush, chew, or split. 0824 (Given - Provider: Shatsa Sinclair, SWEETIE)1659 (Given - Provider: Shasta Sinclair RN) 0614 (Given - Provider: Rudolhp Najera RN)1612 (Not Given - Provider: Liv Grimaldo RN - Reason: Patient/family refused) 0549 (Given - Provider: Rosio Bey, RN)1600 (Canceled Entry - Provider: Automatic Discharge [...] Arnold RN)0825 (New Bag - Provider: Shasta Sinclair, SWEETIE)1340 (Stopped - Provider: Shasta Sinclair RN)1351 (New Bag - Provider: Shasta Sinclair, RN)1819 (Stopped - Provider: Shasta Sinclair RN)2120 (New Bag - Provider: Rudolph Najera RN) 0018 (Stopped - Provider: Rudolph Najera RN)0158 (New Bag - Provider: Rudolph Najera RN)0441 (Stopped - Provider: Rudolph Najera RN)0831 (New Bag - Provider: Ochoa Johnson, SWEETIE)1141 (Stopped - Provider: Liv Grimaldo, SWEETIE)1611 (New Bag - Provider: Liv Grimaldo, SWEETIE)2115 (Stopped - Provider: Rosio Bey, SWEETIE)2125 (New Bag - Provider: Rosio Bey, SWEETIE) 0025 (Stopped - Provider: Rosio Bey, RN)0438 (New Bag - Provider: Rosio Bey, SWEETIE)0739 (Stopped - Provider: Tyson Freeman RN)1034 (New Bag - Provider: Tyson Freeman RN)1425 (Stopped - Provider: Tyson Freeman RN)1600 (Canceled Entry - Provider: Automatic Discharge [...] times daily with meals, First dose on 02/21/25 at 0800, Do not crush, chew, or [...] RN) 0203 (Rate/Dose Verify - Provider: Rudolph Najera, RN)020 (New Bag - Provider: Rudolph Najera RN)0727 (Handoff - Provider: Ochoa Johnson, RN)103 (Handoff - Provider: Ochoa Johnson, RN)192 (Handoff - Provider: Susanna Jackson RN) 022 (New Bag - Provider: Rosio Bey RN)0433 [...] sedation for opioid reversal - MUST notify control clerk auditing provider immediately after first dose, may give [...] pain (4-6), severe pain (7-10), Starting on Wed03/01/25 at 0954 0552 (Given - Provider: Ro [...] Care Teams (unrecognized sec tion and content) Vice President Consulting Services Relationship Specialty Start Date End Date Daryn Loomis MD [facility], [address] [place], [place] [id number] PCP - General Family Medicine 12/18/20 Vice President Consulting Services Relationship Specialty Start Date End Date Candido Starr MD [address] [id number] Nephrology 02/22/20 Vice President Consulting Services Relationship Specialty Start Date End Date Candido Starr MD [address] [place] [address] Nephrology 02/22/20 Vice President Consulting Services Relationship Specialty Start Date End Date Candido Starr MD [address] [place] [address] Nephrology 02/22/20 Vice President Consulting Services Relationship Specialty Start Date End Date Daryn Loomis MD [address] [place] [address] PCP - General 12/18/20 Vice President Consulting Services Relationship Specialty Start Date End Date Daryn Loomis MD [facility] [place] [address] PCP - General 12/18/20 Vice President Consulting Services Relationship Specialty Start Date End Date Daryn Loomis MD [facility] [place] [address] PCP - General 12/18/20 Vice President Consulting Services Relationship Specialty Start Date End Date Daryn Loomis MD [facility] [place] [address] PCP - General 12/18/20 Vice President Consulting Services Relationship Specialty Start Date End Date Daryn Loomis MD [address] [place] [address] PCP - General 12/18/20 Vice President Consulting Services Relationship Specialty Start Date End Date Daryn Loomis MD [address] [place] [address] PCP - General 12/18/20 [employer] Relationship Specialty Start Date End Date Daryn Loomis MD [address] [place] [phone] PCP - General 12/18/20 [employer] Relationship Specialty Start Date End Date Daryn Loomis MD [address] [place] [phone] PCP - General 12/18/20 [employer] Relationship Specialty Start Date End Date Candido Starr MD [address] [place] [phone] Nephrology 02/22/20 [employer] Relationship Specialty Start Date End Date Candido Starr MD [address] [place] [phone] Nephrology 02/22/20 [employer] Relationship Specialty Start Date End Date Daryn Loomis MD [address] [place] [phone] PCP - General 12/18/20 [employer] Relationship Specialty Start Date End Date Leilani Troncoso [address] [place] [phone] PCP - General Family Medicine 10/03/24 [employer] Relationship Specialty Start Date End Date Leilani [place]roncos[place] [phone] PCP - General Family Medicine 10/03/24 [employer] Relationship Specialty Start Date End Date Leilani Troncoso [address] [place] [phone] PCP - General Family Medicine 10/03/24 [employer] Relationship Specialty Start Date End Date Leilani Troncoso [address] [place] [phone] PCP - General Family Medicine 10/03/24 [employer] Relationship Specialty Start Date End Date Leilani Troncoso [address] [place] [phone] PCP - General Family Medicine 10/03/24 [employer] Relationship Specialty Start Date End Date Leilani Troncoso [address] [place], [phone] PCP - General Family Medicine 10/03/24 [employer] Relationship Specialty Start Date End Date Leilani Troncsoo [address] [place] [phone] PCP - General Family Medicine 10/03/24 [employer] Relationship Specialty Start Date End Date Leilani Troncoso [address] [place] [phone] PCP - General Family Medicine 10/03/24 [employer] Relationship Specialty Start Date End Date Leilani Troncoso [address] [place] [phone] PCP - General Family Medicine 10/03/24 [employer] Relationship Specialty Start Date End Date Leilani Troncoso [address] [place] [phone] PCP - General Family Medicine 10/03/24 [employer] Relationship Specialty Start Date End Date Leilani Troncoso [address] [place] [phone] PCP - General Family Medicine 10/03/24 [employer] Relationship Specialty Start Date End Date Leilani Troncoso [address] [place] [phone] PCP - General Family Medicine 10/03/24 [employer] Relationship Specialty Start Date End Date Leilani Troncoso [address], [phone] PCP - General Family Medicine 10/03/24 [employer] Relationship Specialty Start Date End Date Leilani Troncoso [address] [place] [phone] PCP - General Family Medicine 10/03/24 [employer] Relationship Specialty Start Date End Date Leilani Tronocso [address] [place] [phone] PCP - General Family Medicine 10/03/24 [employer] Relationship Specialty Start Date End Date Leilani Troncoso [address] [place] [phone] PCP - General Family Medicine 10/03/24 [employer] Relationship Specialty Start Date End Date Leilani Troncoso [address] [place] [phone] PCP - General Family Medicine 10/03/24 [employer] Relationship Specialty Start Date End Date Leilani Troncoso [address] [place] [phone] PCP - General Family Medicine 10/03/24 [employer] Relationship Specialty Start Date End Date AbaLeilani ramos [address] [place] [phone] PCP - General Family Medicine 10/03/24 [employer] Relationship Specialty Start Date End Date AbaLeilani ramos [address] [place] [phone] PCP - General Family Medicine 10/03/24 [employer] Relationship Specialty Start Date End Date AbaLeilani ramos [address] [place] [phone] PCP - General Family Medicine 10/03/24 [employer] Relationship Specialty Start Date End Date Leilani [place] [phone] PCP - General Family Medicine 10/03/24 [employer] Relationship Specialty Start Date End Date Leilani Troncoso [address] [place] [phone] PCP - General Family Medicine 10/03/24 [employer] Relationship Specialty Start Date End Date [place] [phone] PCP - General Family Medicine 10/03/24 [employer] Relationship Specialty Start Date End Date Aba, Leilani [address] [place] [phone] PCP - General Family Medicine 10/03/24 [employer] Relationship Specialty Start Date End Date Leilani Troncoso [address] [place], [phone] PCP - General Family Medicine 10/03/24 Team [...] Attending Provider Active Start: February 20, 2025 [employer] Relationship Specialty Start Date End Date Leilani Troncoso [place] [phone] PCP - General Family Medicine 10/03/24 [employer] Relationship Specialty Start Date End Date Leilani [place] [phone] PCP - General Family Medicine 10/03/24 [employer] Relationship Specialty Start Date End Date Leilani Troncoso [address] [place] [phone] PCP - General Family Medicine 10/03/24 [employer] Relationship Specialty Start Date End Date Leilani Troncoso [address] [place] [phone] PCP - General Family Medicine 10/03/24 [employer] Relationship Specialty Start Date End Date Leilani Troncoso [address] [place] [phone] PCP - General [facility] Medicine 10/03/24 [employer] Relationship Specialty Start Date End Date Leilani Troncoso [address] [place] [phone] PCP - General Family Medicine 10/03/24 Team Status: Inactive Member Role Status Dates Jayesh ALBA Attending Provider Active Sta rt: February 07, 2025 End: February 07, 2025 Team Status: Inactive Member Role Status Dates Kayley ALBA MD Attending Provider Active Start: February 15, 2025 End: February 15, 2025 Team Status: Active Member Role Status Dates Kayley ALBA MD Attending Provider Active Start: February 20, 2025 Kayley ALBA MD Referring Provider Active Start: February 20, 2025 Team Status: Active Member Role Status Dates Kayley ALBA MD Attending Provider Active Start: March 08, 2025 Team Status: Active Member Role Status Dates Jayesh ALBA Attending Provider Active Sta rt: March 09, 2025 Team Status: Inactive Member Role Status Dates Kayley ALBA MD Attending Provider Active Start: February 20, 2025 End: February 20, 2025 Kayley ALBA MD Referring Provider Active Start: February 20, 2025 End: February 20, 2025 Reason for Visit (unrecogniz ed section and [...] To Contact Diagnoses New onset a-fib (CMS/HCC) ([facility]) Procedures . Earlene Irving MD [address] [place] [address] [facility] [address] [place] [address] Referral ID Status Reason Start Date Expiration Date Visits Re quested Visits Authorized [id number] 1 Reason Onset Date Comments Cancelled [...] To Contact Diagnoses Complication of tracheostomy (CMS/HCC) ([facility]) Procedures . Bruce Nguyen MD [address] [place] [address] Phone: tel: fax: [facility] Medical Intensive Care Unit MICU [address] [place] [address] Phone: tel: Referral ID Status Reason Start Date Expiration Date Visits Re quested Visits Authorized [id number] 1 Reason Onset Date Comments Anticoagulation [...] was bright red and it stopped just SKETCHER when in transport. Specialty Diagnoses / Procedures Referred By Manny t Referred To Contact Diagnoses Hemoptysis Procedures . Bettye Pierre MD [address] [place] [address] Phone: tel: fax: [facility] Trauma Neuro Progressive Care Unit [address]U [address] [place] [address] Phone: tel: Referral ID Status Reason Start Date Expiration Date Visits Re quested Visits Authorized [id number] 1 Reason Onset Date Comments Appointment 02/23/2025 Goals (unrecognized section and content) Goals may be documented in a n alternate sectionGoals may be documented in an alternate sectionGoals may be documented in an alternate section FOR RECORDS PERTAINING TO PATIENTS [...] BE BASED ON THE PRIMARY CLINICAL RECORDS. [facility] [employer] provides no warranty or guarantee of the accuracy or completeness of information in this document.
[2025-03-12 10:30] LABS: Absolute Lymphocyte Count 1.12 X10^3/uL (0.83-4.51); Absolute Neutrophil Count 4.3 X10^3/uL (2.0-7.7); Basophil# 0.13 X10^3/uL; Eosinophil# 0.15 X10^3/uL; Eosinophils% 2.3 % (0-5); Hematocrit 28.7 % (40-54); Hemoglobin 8.7 g/dL (13.0-16.5); Lymphocyte # 1.12 X10^3/ul (0.83-4.51); Lymphocyte % 16.9 % (19-41); Mean Corp Hgb Conc 30.3 g/dL (32-36); Mean Corpuscular Hgb 30.4 pg (27.0-32.0); Mean Corpuscular Volume 100.3 fL (80-94); Mean Platelet Vol. 9.5 fl (6.2-12.0); Monocyte# 0.94 X10^3/uL; Monocyte% 14.2 % (0-10); NRBC Flagged by Analyzer 0.3 % (0-5); Neutrophil # 4.27 X10^3/uL (2.7-7.7); Neutrophil % 64.3 % (47-70); POSITIVE MORPHOLOGY YES; Platelet Count 404 K/mm3 (150-450); RBC Distribution Width CV 21.6 % (11.6-14.6); RBC Distribution Width SD 79.4 fl (35.1-43.9); Red Blood Count 2.86 M/mm3 (4.6-6.2); White Blood Count 6.6 K/mm3 (4.4-11.0)
[2025-03-12 10:31] LABS: Differential Indicated SCAN CRITERIA MET
[2025-03-12 10:34] LABS: International Normalized Ratio 1.9; Prothrombin Time (Protime)PT. 22.4 SECONDS (11.7-14.9)
[2025-03-12 11:36] LABS: Anisocytosis 1+
[2025-03-12 18:10] LABS: ALB/GLOB Ratio 0.7 RATIO (0.9-2.4); AST(SGOT) 47 U/L (<=37); Alanine Aminotransfer ALT/SGPT 20 U/L (<=46); Alkaline Phosphatase 171 U/L (40-129); Anion Gap 13 (5-15); BUN 55 mg/dL (4-19); BUN/Creat Ratio 11.8 RATIO (10-20); Calcium,Total 9.9 mg/dL (7.6-11.0); Carbon Dioxide 27.8 mmol/L (21.0-32.0); Chloride 98 mmol/L (98-108); Creatinine, Serum 4.67 mg/dL (0.70-1.20); EST Glomerular Filtration Rate 14 (>60); Globulin 4.1 g/dL (2.2-4.2); Glucose 102 mg/dL (70-99); Potassium 4.1 mmol/L (3.3-5.1); Protein, Total 7.1 g/dL (5.9-8.4); Sodium Level 139 mmol/L (133-145)
[2025-03-13 15:55] LABS: Total Bilirubin 0.62 mg/dL (0.00-1.30)
== END ==
LOC: OLS.SANC 04:00
PROVIDERS: Referring Provider Internal Medicine; Visit Provider Internal Medicine
DX: I48.91 Unspecified atrial fibrillation (principal); D64.9 Anemia, unspecified; I10 Essential (primary) hypertension
CPT/HCPCS: 36415; 80053; 85025; 85610

== ENCOUNTER → 2025-03-22 | Outpatient (REF) | payer MEDICARE, SELFPAY ==
[2025-03-22 09:22] LABS: International Normalized Ratio 2.9; Prothrombin Time (Protime)PT. 30.7 SECONDS (11.7-14.9)
== END ==
LOC: OLS.SANC 06:45
DX: Z79.01 Long term (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 anticoagulants (principal)
CPT/HCPCS: 36415; 85610

== ENCOUNTER → 2025-03-26 | Outpatient (REF) | payer MEDICARE, SELFPAY ==
--- OUTSIDE RECORDS SUMMARY | 2025-03-26 04:17 | XMS RPT_ITS | CCD ---
Author Organization [facility] CliniSyar Care Team Providers Care Director Of Infection Prevention Name Role Phone Candido Starr Unavailable Unavailable Primary Care Provider Unavailrickey Loomis MD, Daryn Cali Primary Care Provider [phone]( [phone] Unavailable Primary Care Provider UnavailCandido Hardy MD Unavailable Daryn Loomis MD Primary Care Provider Candido Starr MD Unavailable [facility] Primary Care Provider [facility] Primary Care Provider Kayley Melendrez MD Attending Provider Unava ilable Jayesh Nguyen Attending Provider Unavailab Kayley Cm MD Referring Provider Unava ilable JR SHAH Attending Unavailable DARYN LOOMIS Primary Care Unavailable MIKALA DAY Attending Unavailable [facility] Primary Care Unavailable JESE FRANK Referring Unavailable [facility] Primary Care Unavailable MIKALA DAY Attending Unavailable MIKALA DAY Referring Unavailable [facility] Primary Care Unavailable [facility] Primary Care Unavailable QUIANA JEFFERY Admitting Unavailable JUNE CHAPARRO Consulting Unavailable BARB DAWKINS Attending Unavail[facility] Primary Care Unavailable CINDY PATEL Consulting Unavailable MAC LUCIANO Admitting Unavailable JACOB MONTEMAYORIC Attending Unavailable ELDON ALBA Consulting Unavailable TIFFANIE VILLEGAS Consulting Unavailable DARYN SANTACRUZ Consulting Unavailable CALI ARREDONDO Consulting Unavailable [facility] Primary Care Unavailable BETTYE PIERRE Admitting Unavailable YURIY NICOLEPESH Consulting Unavailable ANTHONY HURTADO Attending Unavailable [facility] Primary Care Unavailable RUBI SANON Admitting Unavailable BONNIE, WELLINGTON Consulting Unavailable ANU CASTRO Attending Unavailable JESE FRANK Referring Unavailable [facility] Primary Care Unavailable OSIRIS TERRELL Attending Unavailable [facility], ATWOOD Primary Care Unavailable MONTEMAYOR, LUCIANO Referring Unavailable [facility], ATWOOD Primary Care Unavailable MONTEMAYOR, LUCIANO Referring Unavailable [facility], ATWOOD Primary Care Unavailable [facility], Navarroer Attending Unavail able [facility], Jayesh Attending Unavailable [facility], Mahaveer Attending Unavail able [facility], Mahaveer Attending Unavail able [facility], Mahaveer Attending Unavail able [facility], Mahaveer Attending Unavail able [facility], Navarroer Referring Unavail able [facility], Navarroer Attending Unavail able [facility], Navarroer Attending Unavail able [facility], Jayesh Attending Unavailable [facility], Jayesh Attending Unavailable [facility], Navarroer Attending Unavail able Allergies Allergy Classification Reported Allergen(s) Allergy Type Date of Onset Reaction(s) Facility (11 sources) Lisinopril Drug Allergy 0 Swelling [facility] Work Phone: (20 sources) Lisinopril Allergy to substance 2 Swelling, Angioedema [facility] Medications Current Medications Medication Drug Class(es) Dates [...] 2 tablets by mo ut once daily. Ampicillin-Sulbactam Sodium (UNASYN IV) (1 source) Start: 01-26-20 End: 02-15-20 take 3 g intravenously every twenty-four hours Ampicillin-Sulbacta m Sodium (UNASYN IV) Infuse 3 g into a venous catheter Every 24 hours. 01/25/2025 02/14/2025 Active atorvastatin 10 mg oral tablet (3 sources) HMG-CoA Reductase Inhibitor Start: 08-17-20 End: 10-16-19 take 1 tablet by mouth once daily atorvastatin (Lipitor) 10 MG tablet Take 1 tablet (10 mg) by mouth daily. 30 tablet 1 08/17/2023 10/16/2023 Active emollient (Biafine) cream (5 sources) Start: 05-01-20 emollient (Biafine) cream Apply topically 2 times daily. 454 [...] daily for 10 days. 11/28/2024 12/08/2024 Active metoprolol tartrate (LOPRESSOR) split-tablet 12.5 mg (1 source) Start: 10-22-2019 metoprolol tartrate (LOPRESSOR) split-tablet 12.5 mg potassium [...] 1 mg/ml topical lotion (5 sources) Start: 05-01-2023 End: 05-01-2023 pramoxine-zinc acetate (CALADryl) 1-0.1 % lotion Apply topically 2 times daily as needed for itching or irritation. 177 mL 0 05/01/2023 Active sodium chloride flush 0.9 % injection 3 mL (1 source) Start: 10-19-2019 sodium chloride flush 0.9 % injection 3 mL sulfamethoxazole 400 mg / trimethoprim 80 mg oral tablet (2 sources) Dihydrofolate Reductase Inhibitor Antibacterial, Sulfonamide Antimicrobial Start: 05-01-2023 End: 05-04-2023 take 1 tablet by mouth once daily sulfamethoxazole- trimethoprim (Bactrim) 400-80 MG tablet Take 1 tablet by mouth daily for 3 days. 3 tablet 0 05/01/2023 05/04/2023 Active warfarin sodium 7.5 mg oral tablet (20 sources) Vitamin K Antagonist Start: 03-19-2025 7.5 mg, Oral, Once Warfarin, On Wed03/20/25 at 1700, For 1 dose Start: 03-17-2025 5 mg, Oral, On ce Warfarin, On Wed03/18/25 at 1700, For 1 dose Start: 03-15-2025 2.5 mg, Oral, Once Warfarin, On Wed03/16/25 at 1700, For 1 dose Start: 03-14-2025 1.5 mg, Oral, Once Warfarin, On Wed03/14/25 at 1700, For 1 dose Start: 03-13-2025 3 mg, Oral, On ce Warfarin, On Wed03/13/25 at 1930, For 1 dose Start: 03-04-2025 Start: 03-02-2025 Start: 02-27-2025 Start: 02-24-2025 Start: [...] Drug Class(es) Dates Sig (Normalized) Sig (Original) Acetaminophen (20 sources) Start: 03-13-2025 End: 03-21-2025 take 1 tablet by mouth every six hours as needed for pain and fever acetaminophen (Tylenol) tablet 650 mg Start: 01-19-2025 End: 02-01-2025 take 1000 mg by mouth every eight hours as needed for pain and fever Start: 01-19-2025 End: 01-19-2025 take 1 tablet by mouth every eight hours Start: 01-19-2025 End: 03-21-2025 Start: 08-17-2023 End: 08-17-2023 take 1 tablet by mouth every six hours as needed for pain and fever acetaminophen (Tylenol) tablet 650 mg 20 ml albumin human, fdc 250 mg/ml injection (1 source) Human Serum [...] mouth in the morning. 0 08/17/2023 Discontinued amoxicillin 500 mg / clavulanate 125 mg oral tablet (5 sources) Penicillin-class Antibacterial Start: 02-28-2025 End: 03-21-2025 take 1 tablet by mouth once daily amoxicillin-clavula roman (Augmentin) 500-125 MG tablet Take 1 tablet (500 mg) by mouth daily with supper. Augmentin 500mg q24 (to be taken after HD on days) until 03/10/25 02/28/2025 03/21/2025 Discontinued (Stop taking at discharge) ampicillin-sulbacta m (Unasyn) 3,000 mg in sodium chloride 0.9 % 100 mL IVPB (Add-Cushing) (2 sources) Start: 02-01-2025 End: 02-01-2025 anidulafungin [...] B12, Vitamin C Start: 02-21-2025 End: 03-05-2025 ascorbic acid 100 mg / d-biotin 0.3 mg / folic acid 1 mg / niacinamide 20 mg / pantothenic acid 10 mg / pyridoxine hydrochloride 10 mg / riboflavin 1.7 mg / thiamine 1.5 mg / vitamin b12 0.006 mg oral tablet (10 sources) Vitamin B12, Vitamin C End: 03-21-2025 take 1 tablet by mouth once daily B complex-vitamin C-folic acid (Nephro-Nato Rx) 1 MG tablet Take 1 tablet by mouth daily. 03/21/2025 Discontinued (Stop taking at discharge) asenapine 5 mg sublingual tablet (2 sources) Atypical Antipsychotic Start: 01-22-2025 End: 01-22-2025 Start: 01-22-2025 End: 01-22-2025 B Mwagtbu-C-Oafww Acid (NEPHRO-NATO) 0.8 MG TABS (1 source) Start: 10-14-2020 take 1 tablet by mouth once daily B Txhidyh-Q-Lylth Acid (NEPHRO-NATO) 0.8 MG TABS TAKE 1 TABLET BY MOUTH EVERY DAY 0 10/14/2020 Suspended bisacodyl 5 mg delayed release oral tablet (20 sources) Stimulant Laxative End: 03-21-2025 take 10 mg rectal route every twenty-four hours as needed for constipation bisacodyl (Dulcolax) 10 MG suppository Insert 10 mg into the rectum Daily as needed for constipation. 03/21/2025 Discontinued (Stop taking at discharge) End: 03-21-2025 take 1 tablet by mouth every twenty-four hours as needed for constipation bisacodyl (Dulcolax) 5 MG EC tablet Take 5 mg by mouth Daily as needed for constipation. Do not crush, chew, or split. 03/21/2025 Discontinued (Stop taking at discharge) 10 ml calcium chloride 100 mg/ml prefilled syringe (2 sources) Start: 10-12-2024 End: 10-12-2024 IntraVENous, As needed, Star ting on Brigid 10/12/24 at 1010, Anesthesia Intraprocedure [...] at 1024, Anesthesia Intraprocedure epoetin rowan-epbx (Retacrit) 95696 UNIT/ML injection (20 sources) Start: 12-04-2024 End: 02-21-2025 inject 0.79 mL by subcutaneous injection every week epoetin rowan-epbx (Retacrit) 52948 UNIT/ML injection Indications: ESRD on Dialysis Inject 0.79 mL (7,900 Units) under the skin 1 (one) time per week. 12/04/2024 02/21/2025 Discontinued (Discontinued by another clinician) Start: 12-04-2024 inject 0.79 mL by bangura bcutaneous injection every week epoetin rowan-epbx (Retacrit) [id number] UNIT/ML injection Indications: ESRD on Dialysis Inject [...] fentaNYL (SUBLIMAZE) injecti on gelatin absorbable (Gelfoam) 100 sponge - Pyxis ADS Override Pull (2 sources) Start: 03-17-2025 End: 03-17-2025 Starting on 03/17/25 at 1108, For 1 dose, Terri Hutchison: cabinet override gelatin absorbable (Gelfoam) sponge 1 each (1 [...] injection (20 sources) Unfractionated Heparin, Anti-coagulant Start: 03-17-2025 End: 03-17-2025 5,152 Units (80 Units/kg 64.4 kg), IntraVENous, Once, On 03/17/25 at 1100, For 1 dose, Initial one time bolus Start: 03-17-2025 End: 03-21-2025 5-30 Units/kg/hr 64.4 kg (3. 22-19.32 mL/hr, rounded to 3.2-19.3 mL/hr), IntraVENous, Continuous, Starting on 03/17/25 at 1100, HIGH Dose Heparin Weight Based Dosing (VTE/DVT/PE) >>>>Initial dose: 18 units/kg/hr 100.9 Hold heparin for 60 min Decrease [...] medication is held outside of ordered parameters Start: 03-17-2025 End: 03-21-2025 2,576 Units (40 Units/kg 64. 4 kg), IntraVENous, As needed, heparin dosing algorithm, Starting on 03/17/25 at 1049, Half dose re-bolus based on pharmacy algorithm Start: 02-21-2025 End: 03-05-2025 Start: 02-21-2025 End: [...] (1 source) beta-Adrenergic Mono LABETALOL HCL PO Tang e by mouth daily 0 Suspended lidocaine 0.04 mg/mg medicated patch (20 sources) Antiarrhythmic, Amide Local Anesthetic Start: 01-30-2025 End: 01-30-2025 Start: 11-29-2024 End: 03-21-2025 apply 1 dose transdermal route once daily Lidocaine 4 % patch Apply 1 patch topically daily. 11/29/2024 Active Start: 10-12-2024 End: 01-16-2025 IntraVENous, As needed, Star ting on Brigid [...] for anxiety LORazepam (Ativan) tablet 0.5 mg magnesium hydroxide 160 mg/ml oral suspension (10 sources) End: 03-21-2025 take 30 mL by mouth every twenty-four hours as needed for constipation magnesium hydroxide (Milk of Magnesia) 800 MG/5ML suspension Take 30 mL by mouth Daily as needed for constipation (if no bm in 3 days). 03/21/2025 Discontinued (Stop taking at discharge) take 30 mL by mouth every twenty -four hours as needed for constipation melatonin 3 mg oral tablet (20 sources) Start: 02-21-2025 End: 03-21-2025 Start: 01-19-2025 End: 02-01-2025 Start: 11-28-2024 End: 03-05-2025 melatonin 5 MG tablet 1 tabl et (5 mg) by Per G Tube route Nightly as needed (insomnia). 11/28/2024 03/05/2025 Discontinued (Stop taking at discharge) Start: 11-28-2024 End: 03-05-2025 Methoxy PEG-Epoetin Beta (MIRCERA IJ) (1 source) Start: 11-12-2020 End: 11-11-2021 Methoxy PEG-Epoetin Beta (MIRCERA IJ) 100 mcg 0 11/12/2020 11/11/2021 Suspended metoprolol tartrate 50 mg oral tablet (20 sources) beta-Adrenergic Mono Start: 03-17-2025 End: 03-21-2025 take 50 mg by mouth twice daily 50 mg, Oral, 2 times daily, First dose (after last modification) on 03/17/25 at 2100 Start: 03-15-2025 End: 03-17-2025 take 1 tablet by mouth every six hours 25 mg, Oral, Every 6 hours, First dose (after last modification) on Wed03/15/25 at 1200 Start: 03-14-2025 End: 03-15-2025 take 1 tablet by mouth every eight hours 25 mg, Oral, Every 8 hours, First dose (after last modification) on Wed03/14/25 at 1400 Start: 03-13-2025 5 mg, IntraVEN ous, Once, On Wed03/13/25 at 1745, For 1 dose Start: 03-13-2025 take 25 mg by mouth once 25 mg , Oral, Once, On Wed03/13/25 at 1500, For 1 dose Start: 01-25-2025 Start: 01-25-2025 End: 02-01-2025 Start: 11-28-2024 End: 03-01-2026 take 25 mg by mouth twice daily 25 mg, Oral, 2 times daily, First dose on Wed03/14/25 at 0900 Start: 11-28-2024 End: 11-28-2025 metoprolol tartrate (Lopress or) 25 MG tablet 1 tablet (25 mg) by Per G Tube route 2 times daily. 11/28/2024 03/05/2025 Discontinued (Stop taking at discharge) Start: 11-12-2023 End: 11-28-2024 take 1 tablet [...] 12.5 mg by mout h twice daily. 2 ml midazolam 1 mg/ml injection (2 [...] naloxone in sodium chloride (PF) injection injection (8 sources) End: 03-21-2025 naloxone in sodium chloride (PF) injection injection Inject 0.04 mg into the shoulder, thigh, or buttocks as needed for opioid reversal or respiratory depression. 03/21/2025 Discontinued (Stop taking at discharge) naloxone in sodi um chloride (PF) injection [...] ondansetron ODT (Zofran-ODT) disintegrating tablet 4 mg (4 sources) Start: 03-13-2025 End: 03-21-2025 take 1 tablet by mouth every eight hours as needed for nausea and vomiting ondansetron ODT (Zofran-ODT) disintegrating tablet 4 mg Start: 08-17-2023 End: 08-17-2023 take 1 tablet [...] 11/28/2024 12/05/2024 Active pantoprazole 40 mg delayed release oral tablet (20 sources) Proton Pump Inhibitor Start: 02-21-2025 End: 03-01-2026 take 40 mg by mouth twice daily before mealtime 40 mg, Oral, 2 times daily before meals, First dose on Wed03/13/25 at 1745, Do not crush, chew, or split. Start: 11-28-2024 End: 02-21-2025 pantoprazole (ProtoNix) 40 M G injection Infuse 40 mg into a venous catheter 2 times daily. 11/28/2024 02/21/2025 Discontinued (Discontinued by another clinician) Start: 10-19-2019 End: 10-19-2019 pantoprazole (PROTONIX) inje ction 40 mg perfusion prime builder (1 source) Start: 10-12-2024 End: 10-12-2024 Perfusion, Continuous PRN, Starting on Wed10/12/24 at 0727, Anesthesia Intraprocedure 1 ml phenylephrine hydrochloride 10 mg/ml injection (1 source) alpha-1 Adrenergic Agonist Start: 10-12-2024 End: 10-12-2024 IntraVENous, As needed, Starting on Wed10/12/24 at 0903, Anesthesia Intraprocedure Phenylephrine HCl (Pressors) 1 MG/10ML injection (1 source) Start: 10-12-2024 End: 10-12-2024 IntraVENous, As needed, Starting on Wed10/12/24 at 1024, Anesthesia Intraprocedure polyethylene glycol 3350 62596 mg powder for oral solution (6 sources) Osmotic Laxative Start: 03-13-2025 End: 03-21-2025 take 17 g by mouth every twenty-four hours as needed for constipation 17 g, Oral, Daily PRN, constipation, Starting on Wed03/13/25 at 1742, 1st line for treatment of constipation - give scheduled if no bowel movement in past 24 hours. Start: 02-21-2025 End: 03-05-2025 take 17 g [...] sodium chloride 5860 mg / sodium sulfate 94305 mg powder for oral solution (6 sources) [...] chloride 10 meq extended release oral tablet (4 sources) Start: 03-18-2025 End: 03-18-2025 40 mEq, Oral, Once, On 03/18/25 at 1345, For 1 dose, Best given with food and plenty of water to minimize gastric irritation. Do not crush or chew. Start: 02-21-2025 End: 03-05-2025 take 40 mEq [...] 1105, Anesthesia Intraprocedure 25 ml protamine sulfate (fdc) 10 mg/ml injection (1 source) Start: 10-12-2024 End: 10-12-2024 IntraVENous, As needed, Starting on Brigid 10/12/24 at 1019, Anesthesia Intraprocedure QUEtiapine 25 mg oral tablet (20 sources) Atypical Antipsychotic Start: 11-28-2024 End: 03-31-2025 take 1 tablet by mouth once daily QUEtiapine (SEROquel) 25 MG tablet Take 1 tablet (25 mg) by mouth Nightly. 30 tablet 03/01/2025 03/21/2025 Discontinued (Stop taking at discharge) rocuronium bromide 10 mg/ml injectable solution (1 source) Nondepolarizing Neuromuscular Mono Start: 10-12-2024 End: 10-12-2024 IntraVENous, As needed, Starting on Brigid 10/12/24 at 0736, Anesthesia Intraprocedure sevelamer carbonate 800 mg oral tablet (20 sources) Phosphate Binder Start: 02-21-2025 End: 03-01-2026 take 800 mg by mouth three times daily at mealtime 800 mg, Oral, 3 times daily with meals, First dose on 03/13/25 at 1745, Do not crush, chew, or split. Start: 08-13-2020 take 3 tablets by mo [facility] three times daily at mealtime sevelamer carbonate [...] with meals. Take 3 tablets by mo [facility] three times daily with meals. sodium bicarbonate 150 mEq in sterile water 1,000 mL infusion (1 source) Start: 0 End: 0 sodium bicarbonate 150 mEq in sterile water 1,000 mL infusion sodium bicarbonate 50 mEq in dextrose 5 % 1,000 mL infusion (1 source) Start: 0 End: 0 sodium bicarbonate 50 mEq in dextrose 5 % 1,000 mL infusion 5 ml sodium chloride 9 mg/ml injection (12 sources) Start: 5 End: 5 take 10 mL intraluminal route every twelve hours Start: 01-23-2025 End: 02-01-2025 Start: 10-12-2024 End: 10-12-2024 IntraVENous, Continuous PRN, Starting on Wed10/12/24 at 0726, Anesthesia Intraprocedure Start: 09-15-2021 0.9 % sodium c hloride infusion sodium zirconium cyclosilica te 5000 mg powder for oral suspension (9 sources) Start: 03-03-2025 End: 03-21-2025 5 g, Oral, Daily, First dose on Wed03/13/25 at 1745, Empty entire contents of packet(s) into 45 mL water. Stir well and administer immediately. If powder remains, rinse glass with water and administer. Administer other meds at least 2 hours before or after dose to prevent decreases in their absorption. 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; Translations: [care home (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 anticoagulants] Onset: 03-16-2025 Episodic Other aftercare (1 source) Other joint terminal attack controller (current) drug therapy; Translations: [Other joint terminal attack controller (current) drug therapy] Onset: 02-28-2025 Episodic Other endocrine disorders (2 sources) Hypoglycemia, [...] lung] 02-22-2025 Episodic Other lower respiratory disease (12 sources) Dyspnea; Translations: [Shortness of breath] Onset: 03-13-2025 03-13-2025 Episodic Other lower respiratory disease (2 sources) Shortness of breath; Translations: [Shortness of breath] Onset: 03-13-2025 Episodic Other lower respiratory disease (1 source) [...] 10-08-2023 Episodic Respiratory failure; insufficiency; arrest (adult) (6 sources) Dependence on ventilator; Translations: [Dependence on [...] Name Value Interpretation Reference Range Facility 36on 03-22-2025 36 Patient discharged to [facility] on 03/21 - please follow [facility] International normalized rat io (INR) calculationOrdered By: Kayley Melendrez on 03-22-2025 INR Coag (Bld) [Relative time] 2.9 {INR} [facility] Prothrombin Time w/INRon INR Coag (PPP) [Relative time] 2.9 {INR} Normal [facility] Comment on above: Performed By: #### L [id number] #### [facility] [address] [place], [place], [id number] PT Coag (PPP) [Time] 30.7 s High 11.7-14.9 [facility] Comment on above: Performed By: #### L [id number] #### [facility] [address] [place], [place], [id number] Prothrombin timeOrdered By: Kayley Melendrez on 03-22-2025 PT Coag (PPP) [Time] 30.7 s High 11.7-14.9 [facility] 30on 03-21-2025 30 Normal [facility] [id number] 03-21-2025 [id number] MAR, Labs & Discharge med [facility] per TCC request. Electronically signed by NELSON Rodrigues [facility] [id number] [facility] [id number] [facility] APTTon 03-21-2025 aPTT Coag (Bld) [Time] 50.7 s High 20.0-30.5 [facility] Comment on above: Result Comment: ARPAN Kaplan COMMENTS:NOTE: The therapeutic time for Heparin anticoagulation, based on Xa activity inhibition, is an APTT of 46-80 seconds. Performed By: #### L [id number], [id number] ####Loss Prevention Associate: DOMENICA JARA ([id number])[address] CBC (HEMOGRAM)on 03-21-2025 Erythrocyte distribution width (RBC) [Ratio] 19.9 % High 11.5-15.0 [facility] Comment on above: Performed By: #### L [id number] ####Loss Prevention Associate: DOMENICA [id number])[facility] ([facility])[address] [place] [address] Hematocrit (Bld) [Volume fraction] 29.2 % Low 40.0-52.0 [facility] Comment on above: Performed By: #### L [id number] ####Loss Prevention Associate: DOMENICA [id number])[facility])[address] [place] [address] Hemoglobin (Bld) [Mass/Vol] 8.8 g/dL Low 13.0-18.0 [facility] Comment on above: Performed By: #### L [id number] ####Loss Prevention Associate: DOMENICA JARA ([id number])[facility])[address] [place] [address] MCH (RBC) [Entitic mass] 30.2 pg Normal 26.0-34.0 [facility] Comment on above: Performed By: #### L [id number] ####Loss Prevention Associate: DOMENICA JARA ([id number])[facility])[address] [place] [address] MCHC 30.1 % Low 30.5-36.0 [facility] Comment on above: Performed By: #### L [id number] ####Loss Prevention Associate: DOMENICA JARA ([id number])[facility])[address] [place] [address] MCV (RBC) [Entitic vol] 100.3 fL High 77.0-99.0 [facility] Comment on above: Performed By: #### L [id number] ####Loss Prevention Associate: DOMENICA JARA ([id number])[facility])[address] [place] [address] Platelet mean volume (Bld) [Entitic vol] 8.9 fL Low 9.0-12.7 [facility] Comment on above: Performed By: #### L [id number] ####Loss Prevention Associate: DOMENICA JARA ([id number])[facility])[address] [place] [address] Platelets (Bld) [#/Vol] 271 10*3/uL Normal 140-440 [facility] Comment on above: Performed By: #### L [id number] ####Loss Prevention Associate: DOMENICA JARA ([id number])[facility])[address] [place] [address] [place] RBC (Bld) [#/Vol] 2.91 10*6/uL Low 4.40-5.90 [facility] Comment on above: Performed By: #### L [id number] ####Loss Prevention Associate: DOMENICA JARA ([id number])[facility] ([facility])[address] [place] [address] WBC (Bld) [#/Vol] 8.0 10*3/uL Normal 3.6-10.7 [facility] Comment on above: Performed By: #### L [id number] ####Loss Prevention Associate: DOMENICA JARA ([id number])[facility] ([facility])[address] [place] [address] CBC panel Auto (Bld)on 03-21 Erythrocyte distribution width (RBC) [Ratio] 19.9 % High 11.5 - 15.0 % [facility] Hematocrit (Bld) [Volume fraction] 29.2 % Low 40.0 - 52.0 % [facility] Hemoglobin (Bld) [Mass/Vol] 8.8 g/dL Low 13.0 - 18.0 g/dL [facility] Interpretation and review of laboratory results Abnormal [facility] MCH (RBC) [Entitic mass] 30.2 pg 26. 0 - 34.0 pg [facility] MCHC (RBC) [Mass/Vol] 30.1 % Low 30.5 - 36.0 % [facility] MCV (RBC) [Entitic vol] 100.3 fL High 77.0 - 99.0 fL [facility] Platelet mean volume (Bld) [Entitic vol] 8.9 fL Low 9.0 - 12.7 fL [facility] Platelets (Bld) [#/Vol] 271 10*3/uL 140 - 440 10*3/uL [facility] RBC (Bld) [#/Vol] 2.91 10*6/uL Low 4.40 - 5.9 0 10*6/uL [facility] WBC (Bld) [#/Vol] 8 10*3/uL 3.6 - 10.7 10*3/uL [facility] COMPREHENSIVE METABOLIC PANE Victor M 03-21-2025 Albumin [Mass/Vol] 2.0 g/dL Low 3.5-5.0 [facility] Comment on above: Performed By: #### L AB17, [id number] ####Loss Prevention Associate: DOMENICA JARA ([id number])[facility] ([facility])[address] [place] [address] ALP [Catalytic activity/Vol] 217 U/L High 40-150 [facility] Comment on above: Performed By: #### L AB17, [id number] ####Loss Prevention Associate: DOMENICA JARA ([id number])[facility] ([facility])[address] [place] [address] ALT [Catalytic activity/Vol] 13 U/L Normal <40 [facility] Comment on above: Performed By: #### L AB17, [id number] ####Loss Prevention Associate: DOMENICA JARA ([id number])[facility] ([facility])[address] [place] [address] Anion gap [Moles/Vol] 8 mmol/L Normal 3-13 [facility] Comment on above: Performed By: #### L AB17, [id number] ####Loss Prevention Associate: DOMENICA JARA ([id number])[facility] ([facility])[address] [place] [address] AST [Catalytic activity/Vol] 59 U/L High <34 [facility] Comment on above: Performed By: #### L AB17, [id number] ####Loss Prevention Associate: DOMENICA JARA ([id number])[facility] ([facility])[address] [place] [address] Bilirubin [Mass/Vol] 0.9 mg/dL Normal <1.2 [facility] Comment on above: Performed By: #### L AB17, [id number] ####Loss Prevention Associate: DOMENICA JARA ([id number])[facility] ([facility])[address] [place] [address] [place] Calcium [Mass/Vol] 9.0 mg/dL Normal 8.4-10.2 [facility] Comment on above: Performed By: #### L AB17, [id number] ####Loss Prevention Associate: DOMENICA JARA ([id number])[facility] ([facility])[address] [place] [address] Chloride [Moles/Vol] 99 mmol/L Normal 98-107 [facility] Comment on above: Performed By: #### L AB17, [id number] ####Loss Prevention Associate: DOMENICA JARA ([id number])[facility])[address] [place] [address] CO2 [Moles/Vol] 27 mmol/L Normal 22-29 [facility] Comment on above: Performed By: #### L AB17, [id number] ####Loss Prevention Associate: DOMENICA JARA ([id number])[facility])[address] [place] [address] Creatinine [Mass/Vol] 3.36 mg/dL High 0.72-1.25 [facility] Comment on above: Performed By: #### L AB17, [id number] ####Loss Prevention Associate: DOMENICA JARA ([id number])[facility])[address] [place] [address] GLOMERULAR FILTRATION RATE ML/MIN/1.73 SQ M.PREDICTED 20.2 mL/min/1.73m*2 Low >60.0 [facility] Comment on above: Result Comment: Calc ulation based on the Chronic Kidney Disease Epidemiology Collaboration (CKD-EPI) equation refit without adjustment for race Performed By: #### L AB17, [id number] ####Loss Prevention Associate: DOMENICA JARA ([id number])[facility])[address] [place] [address] Glucose [Mass/Vol] 91 mg/dL Normal 74-100 [facility] Comment on above: Performed By: #### L AB17, [id number] ####Loss Prevention Associate: DOMENICA JARA ([id number])[facility])[address] [place] [address] Potassium [Moles/Vol] 5.0 mmol/L Normal 3.5-5.1 [facility] Comment on above: Result Comment: [facility] potassium values may be up to 0.5 mmol/L lower than serum values. Performed By: #### L AB17, [id number] ####Loss Prevention Associate: DOMENICA JARA ([id number])[facility] ([facility])[address] [place] [address] Protein [Mass/Vol] 7.2 g/dL Normal 6.4-8.3 [facility] Comment on above: Performed By: #### L AB17, [id number] ####Loss Prevention Associate: DOMENICA JARA ([id number])[facility] ([facility])[address] [place] [address] Sodium [Moles/Vol] 134 mmol/L Low 136-145 [facility] Comment on above: Performed By: #### L AB17, [id number] ####Loss Prevention Associate: DOMENICA JARA ([id number])[facility] ([facility])[address] [place] [address] Urea nitrogen [Mass/Vol] 24 mg/dL High 9-23 [facility] Comment on above: Performed By: #### L AB17, [id number] ####Loss Prevention Associate: DOMENICA JARA ([id number])[facility] [place] [address] Comprehensive metabolic 1998 panelon 03-21-2025 Albumin [Mass/Vol] 2 g/dL Low 3.5 - 5.0 g/dL [facility] ALP [Catalytic activity/Vol] 217 U/L High 40 - 150 U/L [facility] ALT [Catalytic activity/Vol] 13 U/L NINF - 40 U/L [facility] Anion gap [Moles/Vol] 8 mmol/L 3 - 13 mmol/L [facility] AST [Catalytic activity/Vol] 59 U/L High NINF - 34 U/L [facility] Bilirubin [Mass/Vol] 0.9 mg/dL NINF - 1.2 mg/dL [facility] Calcium [Mass/Vol] 9 mg/dL 8.4 - 10. 2 mg/dL [facility] Chloride [Moles/Vol] 99 mmol/L 98 - 10 7 mmol/L [facility] CO2 [Moles/Vol] 27 mmol/L 22 - 29 mmol/L [facility] Creatinine [Mass/Vol] 3.36 mg/dL High 0.72 - 1.25 mg/dL [facility] GFR/1.73 sq M.predicted (S/P/Bld) [Vol rate/Area] 20.2 mL/min Low - PINF [facility] Comment on above: Calculation based on the Chronic Kidney Disease Epidemiology Collaboration (CKD-EPI) equation refit without adjustment for race Glucose [Mass/Vol] 91 mg/dL 74 - 100 mg/dL [facility] Interpretation and review of laboratory results Abnormal [facility] Potassium [Moles/Vol] 5 mmol/L 3.5 - 5.1 mmol/L [facility] Comment on above: Plasma potassium macey ues may be up to 0.5 mmol/L lower than serum values. Protein [Mass/Vol] 7.2 g/dL 6.4 - 8.3 g/dL [facility] Sodium [Moles/Vol] 134 mmol/L Low 136 - 145 mmol/L [facility] Urea nitrogen [Mass/Vol] 24 mg/dL High 9 - 23 mg/d L [facility] Laboratory - Chemistry and C hemistry - challengeon 03-21-2025 Glucose [Mass/Vol] 88 mg/dL 70 - 100 mg/dL [facility] Magnesium [Mass/Vol] 1.8 mg/dL 1.6 - 2 .6 mg/dL [facility] Laboratory - Coagulationon 0 03-21-2025 PT Coag (Bld) [Time] 29 s High 9.0 - 12.0 s [facility] MAGNESIUMon 03-21-2025 Magnesium [Mass/Vol] 1.8 mg/dL Normal 1.6-2.6 [facility] Comment on above: Result Comment: ARPAN Kaplan COMMENTS:Higher values can be expected in females during menses. Performed By: #### L AB17, [id number] ####Loss Prevention Associate: DOMENICA JARA ([id number])[facility] ([facility])[address] [place] [address] Magnesium [Mass/Vol]on 03-21 Interpretation and review of laboratory results Normal [facility] Higher values can be expected in females during menses. [facility] No Panel Informationon 03-21 Interpretation and review of laboratory results Normal [facility] Performed by: [facility], [address] [place] [address] CLIA ID: [id number] [facility] Interpretation and review of laboratory results Abnormal [facility] Nursing Noteon 03-21-2025 Nursing Note Educated pt on importance of prescribed medications. Pt still refused. Normal [facility] PROTHROMBIN TIMEon INR Coag (PPP) [Relative time] 2.9 {INR} High 0.9-1.1 [facility] Comment on above: Result Comment: Vaughn [...] Myocardial Infarction Performed By: #### Tameka AB320, [id number] ####Loss Prevention Associate: DOMENICA JARA ([id number])[facility] ([facility])[address] [place] [address] PT Coag (PPP) [Time] 29.0 s High 9.0-12.0 [facility] Comment on above: Performed By: #### Tameka AB320, [id number] ####Loss Prevention Associate: DOMENICA JARA ([id number])[facility] ([facility])[address] [place] [address] PT Coag (Bld) [Time]on 03-21 INR Coag (PPP) [Relative time] 2.9 {INR} High 0.9 - 1.1 [facility] Comment on above: Recommended Anticoag ulant Therapy: [...] therapy is used to prevent Myocardial Infarction Progress Noteon 03-21-2025 Progress Note Patient quit smoking in September. Accepting of handout with contact information for additional support to remain quit if neccesary. Normal [facility] Progress Note Normal [facility] Progress Note Normal [facility] Progress Note Normal [facility] aPTT Coag (Bld) [Time]on aPTT Coag (PPP) [Time] 50.7 s High 20.0 - 30.5 s [facility] NOTE: The therapeutic time for Heparin anticoagulation, based on Xa activity inhibition, is an APTT of 46-80 seconds. [facility] 30on 03-20-2025 30 Normal [facility] [id number] 03-20-2025 [id number] Normal [facility] 36on 03-20-2025 36 Patient was re-admitted on 03/13. Inpatient consult team is following his care. Normal [facility] APTTon 03-20-2025 aPTT Coag (Bld) [Time] 68.9 s High 20.0-30.5 [facility] Comment on above: Result Comment: ARPAN Kaplan COMMENTS:NOTE: The therapeutic time for Heparin anticoagulation, based on Xa activity inhibition, is an APTT of 46-80 seconds. Performed By: #### L AB325 ####Loss Prevention Associate: DOMENICA JARA ([id number])[address] aPTT Coag (Bld) [Time] 61.5 s High 20.0-30.5 [facility] Comment on above: Result Comment: ARPAN Kaplan COMMENTS:NOTE: The therapeutic time for Heparin anticoagulation, based on Xa activity inhibition, is an APTT of 46-80 seconds. Performed By: #### L AB325 ####Loss Prevention Associate: DOMENICA JARA ([id number])[address] aPTT Coag (Bld) [Time] 44.1 s High 20.0-30.5 [facility] Comment on above: Result Comment: ARPAN Kaplan COMMENTS:NOTE: The therapeutic time for Heparin anticoagulation, based on Xa activity inhibition, is an APTT of 46-80 seconds. Performed By: #### L AB320, [id number] ####Loss Prevention Associate: DOMENICA JARA ([id number])[facility])[address] [place] [address] CBC (HEMOGRAM)on 03-20-2025 Erythrocyte distribution width (RBC) [Ratio] 20.2 % High 11.5-15.0 [facility] Comment on above: Performed By: #### L AB294 ####Loss Prevention Associate: DOMENICA JARA ([id number])[facility])[address] [place] [address] Hematocrit (Bld) [Volume fraction] 30.3 % Low 40.0-52.0 [facility] Comment on above: Performed By: #### L AB294 ####Loss Prevention Associate: DOMENICA JARA ([id number])[address] Hemoglobin (Bld) [Mass/Vol] 9.2 g/dL Low 13.0-18.0 [facility] Comment on above: Performed By: #### L [id number] ####Loss Prevention Associate: DOMENICA JARA ([id number])[address] MCH (RBC) [Entitic mass] 30.7 pg Normal 26.0-34.0 [facility] Comment on above: Performed By: #### L AB294 ####Loss Prevention Associate: DOMENICA JARA ([id number])[address] MCHC 30.4 % Low 30.5-36.0 [facility] Comment on above: Performed By: #### L AB294 ####Loss Prevention Associate: DOMENICA JARA ([id number])[address] MCV (RBC) [Entitic vol] 101.0 fL High 77.0-99.0 [facility] Comment on above: Performed By: #### L AB294 ####Loss Prevention Associate: DOMENICA [id number])[facility] ([facility])[address] [place] [address] Platelet mean volume (Bld) [Entitic vol] 9.2 fL Normal 9.0-12.7 [facility] Comment on above: Performed By: #### L AB294 ####Loss Prevention Associate: DOMENICA JARA ([id number])[facility] ([facility])[address] [place] [address] Platelets (Bld) [#/Vol] 308 10*3/uL Normal 140-440 [facility] Comment on above: Performed By: #### L AB294 ####Loss Prevention Associate: DOMENICA JARA ([id number])[facility])[address] [place] [address] RBC (Bld) [#/Vol] 3.00 10*6/uL Low 4.40-5.90 [facility] Comment on above: Performed By: #### L AB294 ####Loss Prevention Associate: DOMENICA JARA ([id number])[facility] ([facility])[address] [place] [address] WBC (Bld) [#/Vol] 8.1 10*3/uL Normal 3.6-10.7 [facility] Comment on above: Performed By: #### L AB294 ####Loss Prevention Associate: DOMENICA JARA ([id number])[facility] ([facility])[address] [place] [address] CBC panel Auto (Bld)Ordered By: Anu Graham on 03-20-2025 Erythrocyte distribution width (RBC) [Ratio] 20.2 % High 11.5 - 15.0 % [facility] Hematocrit (Bld) [Volume fraction] 30.3 % Low 40.0 - 52.0 % [facility] Hemoglobin (Bld) [Mass/Vol] 9.2 g/dL Low 13.0 - 18.0 g/dL [facility] Interpretation and review of laboratory results Abnormal [facility] MCH (RBC) [Entitic mass] 30.7 pg 26. 0 - 34.0 pg [facility] MCHC (RBC) [Mass/Vol] 30.4 % Low 30.5 - 36.0 % [facility] MCV (RBC) [Entitic vol] 101 fL High 77.0 - 99.0 fL [facility] Platelet mean volume (Bld) [Entitic vol] 9.2 fL 9.0 - 12.7 fL [facility] Platelets (Bld) [#/Vol] 308 10*3/uL 140 - 440 10*3/uL [facility] RBC (Bld) [#/Vol] 3 10*6/uL Low 4.40 - 5.9 0 10*6/uL [facility] WBC (Bld) [#/Vol] 8.1 10*3/uL 3.6 - 10.7 10*3/uL [facility] COMPREHENSIVE METABOLIC PANE Victor M 03-20-2025 Albumin [Mass/Vol] 1.9 g/dL Low 3.5-5.0 [facility] Comment on above: Performed By: #### Tameka KWONG, LAB17 ####Loss Prevention Associate: DOMENICA JARA ([id number])[facility])[address] [place] [address] ALP [Catalytic activity/Vol] 194 U/L High 40-150 [facility] Comment on above: Performed By: #### Tameka KWONG, LAB17 ####Loss Prevention Associate: DOMENICA JARA ([id number])[facility])[address] [place] [address] ALT [Catalytic activity/Vol] 13 U/L Normal <40 [facility] Comment on above: Performed By: #### Tameka [id number], LAB17 ####Loss Prevention Associate: DOMENICA JARA ([id number])[facility])[address] [place] [address] Anion gap [Moles/Vol] 10 mmol/L Normal 3-13 [facility] Comment on above: Performed By: #### L AB103, LAB17 ####Loss Prevention Associate: DOMENICA JARA ([id number])[facility])[address] [place] [address] AST [Catalytic activity/Vol] 46 U/L High <34 [facility] Comment on above: Performed By: #### L AB103, LAB17 ####Loss Prevention Associate: DOMENICA JARA ([id number])[facility] ([facility])[address] [place] [address] Bilirubin [Mass/Vol] 0.8 mg/dL Normal <1.2 [facility] Comment on above: Performed By: #### L AB103, LAB17 ####Loss Prevention Associate: DOMENICA JARA ([id number])[facility] ([facility])[address] [place] [address] Calcium [Mass/Vol] 9.1 mg/dL Normal 8.4-10.2 [facility] Comment on above: Performed By: #### L AB103, LAB17 ####Loss Prevention Associate: DOMENICA JARA ([id number])[facility] ([facility])[address] [place] [address] Chloride [Moles/Vol] 102 mmol/L Normal 98-107 [facility] Comment on above: Performed By: #### L AB103, LAB17 ####Loss Prevention Associate: DOMENICA JARA ([id number])[facility] ([facility])[address] [place] [address] CO2 [Moles/Vol] 24 mmol/L Normal 22-29 [facility] Comment on above: Performed By: #### L AB103, LAB17 ####Loss Prevention Associate: DOMENICA JARA ([id number])[facility])[address] [place] [address] Creatinine [Mass/Vol] 4.28 mg/dL High 0.72-1.25 [facility] Comment on above: Performed By: #### L AB103, LAB17 ####Loss Prevention Associate: DOMENICA JARA ([id number])[facility])[address] [place] [address] GLOMERULAR FILTRATION RATE ML/MIN/1.73 SQ M.PREDICTED 15.1 mL/min/1.73m*2 Low >60.0 [facility] Comment on above: Result Comment: Calc ulation based on the Chronic Kidney Disease Epidemiology Collaboration (CKD-EPI) equation refit without adjustment for race Performed By: #### L VARGHESE, LAB17 ####Loss Prevention Associate: DOMENICA JARA ([id number])[facility])[address] [place] [address] Glucose [Mass/Vol] 91 mg/dL Normal 74-100 [facility] Comment on above: Performed By: #### L VARGHESE, LAB17 ####Loss Prevention Associate: DOMENICA JARA ([id number])[facility])[address] [place] [address] Potassium [Moles/Vol] 5.3 mmol/L High 3.5-5.1 [facility] Comment on above: Result Comment: [facility] potassium values may be up to 0.5 mmol/L lower than serum values. Performed By: #### L VARGHESE, LAB17 ####Loss Prevention Associate: DOMENICA JARA ([id number])[facility])[address] [place] [address] Protein [Mass/Vol] 7.3 g/dL Normal 6.4-8.3 [facility] Comment on above: Performed By: #### Tameka KWONG, LAB17 ####Loss Prevention Associate: DOMENICA JARA ([id number])[facility])[address] [place] [address] Sodium [Moles/Vol] 136 mmol/L Normal 136-145 [facility] Comment on above: Performed By: #### L VARGHESE, LAB17 ####Loss Prevention Associate: DOMENICA JARA ([id number])[facility])[address] [place] [address] Urea nitrogen [Mass/Vol] 32 mg/dL High 9-23 [facility] Comment on above: Performed By: #### L AB103, LAB17 ####Loss Prevention Associate: DOMENICA JARA ([id number])[facility])[address] [place] [address] Comprehensive metabolic 1998 panelon 03-20-2025 Albumin [Mass/Vol] 1.9 g/dL Low 3.5 - 5.0 g/dL [facility] ALP [Catalytic activity/Vol] 194 U/L High 40 - 150 U/L [facility] ALT [Catalytic activity/Vol] 13 U/L NINF - 40 U/L [facility] Anion gap [Moles/Vol] 10 mmol/L 3 - 13 mmol/L [facility] AST [Catalytic activity/Vol] 46 U/L High NINF - 34 U/L [facility] Bilirubin [Mass/Vol] 0.8 mg/dL NINF - 1.2 mg/dL [facility] Calcium [Mass/Vol] 9.1 mg/dL 8.4 - 10. 2 mg/dL [facility] Chloride [Moles/Vol] 102 mmol/L 98 - 10 7 mmol/L [facility] CO2 [Moles/Vol] 24 mmol/L 22 - 29 mmol/L [facility] Creatinine [Mass/Vol] 4.28 mg/dL High 0.72 - 1.25 mg/dL [facility] GFR/1.73 sq M.predicted (S/P/Bld) [Vol rate/Area] 15.1 mL/min Low - PINF [facility] Comment on above: Calculation based on the Chronic Kidney Disease Epidemiology Collaboration (CKD-EPI) equation refit without adjustment for race Glucose [Mass/Vol] 91 mg/dL 74 - 100 mg/dL [facility] Interpretation and review of laboratory results Abnormal [facility] Potassium [Moles/Vol] 5.3 mmol/L High 3.5 - 5.1 mmol/L [facility] Comment on above: Plasma potassium macey ues may be up to 0.5 mmol/L lower than serum values. Protein [Mass/Vol] 7.3 g/dL 6.4 - 8.3 g/dL [facility] Sodium [Moles/Vol] 136 mmol/L 136 - 145 mmol/L [facility] Urea nitrogen [Mass/Vol] 32 mg/dL High 9 - 23 mg/d L [facility] HBV surface Ab IA Qnon 03-20 Interpretation: <8.0 Non-Reactive 8.0-11.9 Equivocal >= 12.0 Ab Detected Note: If an equivocal result is interpreted, an antibody status is unable to be determined. Collect new specimen if clinically indicated. [facility] HBV surface Ag IA Qlon 06-24 -2025 Interpretation and review of laboratory results Normal [facility] HEPATITIS B SURFACE ANTIBODY on 03-20-2025 HEPATITIS B VIRUS SURFACE AB <8.0 Normal [facility] Comment on above: Result Comment: ARPAN Kaplan COMMENTS:Interpretation:<8.0 Non-Reactive8.0-11.9 Equivocal>= 12.0 Ab DetectedNote: If an equivocal result is interpreted, an antibody status is unable to be determined. Collect new specimen if clinically indicated. Performed By: #### L AB472, [id number] ####Loss Prevention Associate: DOMENICA JARA ([id number])[facility])[address] [place] [address] HEPATITIS B SURFACE ANTIGENo n 03-20-2025 HEPATITIS B VIRUS SURFACE AG Not detected Normal Not Detected [facility] Comment on above: Performed By: #### L AB472, [id number] ####Loss Prevention Associate: DOMENICA JARA ([id number])[facility])[address] [place] [address] Laboratory - Chemistry and C hemistry - challengeon 03-20-2025 Magnesium [Mass/Vol] 2 mg/dL 1.6 - 2 .6 mg/dL [facility] Laboratory - Coagulationon 0 03-20-2025 PT Coag (Bld) [Time] 19.1 s High 9.0 - 12.0 s [facility] Laboratory - Microbiology an d Antimicrobial susceptibilityon 03-20-2025 HBV surface Ag IA Ql Not detected Not Detected [facility] HBV surface Ab IA Qn mIU/mL [facility] MAGNESIUMon 03-20-2025 Magnesium [Mass/Vol] 2.0 mg/dL Normal 1.6-2.6 [facility] Comment on above: Result Comment: ARPAN R COMMENTS:Higher values can be expected in females during menses. Performed By: #### L AB103, LAB17 ####Loss Prevention Associate: DOMENICA JARA ([id number])[facility])[address] [place] [address] Magnesium [Mass/Vol]on 03-20 Interpretation and review of laboratory results Normal [facility] Higher values can be expected in females during menses. [facility] No Panel Informationon 03-20 [facility] Interpretation and review of laboratory results Abnormal [facility] Nursing Noteon 03-20-2025 Nursing Note Normal [facility] PROTHROMBIN TIMEon INR Coag (PPP) [Relative time] 1.9 {INR} High 0.9-1.1 [facility] Comment on above: Result Comment: Vaughn [...] Myocardial Infarction Performed By: #### Tameka AB320, [id number] ####Loss Prevention Associate: DOMENICA JARA ([id number])[facility] ([facility])[address] [place] [address] PT Coag (PPP) [Time] 19.1 s High 9.0-12.0 [facility] Comment on above: Performed By: #### Tameka AB320, [id number] ####Loss Prevention Associate: DOMENICA JARA ([id number])[facility] [place] [address] PT Coag (Bld) [Time]on 03-20 INR Coag (PPP) [Relative time] 1.9 {INR} High 0.9 - 1.1 [facility] Comment on above: Recommended Anticoag ulant Therapy: [...] therapy is used to prevent Myocardial Infarction Progress Noteon 03-20-2025 Progress Note Normal [facility] Progress Note Normal [facility] Progress Note Normal [facility] aPTT Coag (Bld) [Time]on aPTT Coag (PPP) [Time] 68.9 s High 20.0 - 30.5 s [facility] Interpretation and review of laboratory results Abnormal [facility] NOTE: The therapeutic time for Heparin anticoagulation, based on Xa activity inhibition, is an APTT of 46-80 seconds. [facility] aPTT Coag (PPP) [Time] 61.5 s High 20.0 - 30.5 s [facility] Interpretation and review of laboratory results Abnormal [facility] NOTE: The therapeutic time for Heparin anticoagulation, based on Xa activity inhibition, is an APTT of 46-80 seconds. [facility] aPTT Coag (PPP) [Time] 44.1 s High 20.0 - 30.5 s [facility] NOTE: The therapeutic time for Heparin anticoagulation, based on Xa activity inhibition, is an APTT of 46-80 seconds. [facility] 30on 03-19-2025 30 Normal [facility] 30 Normal [facility] [id number] 03-19-2025 [id number] Normal [facility] APTTon 03-19-2025 aPTT Coag (Bld) [Time] 47.3 s High 20.0-30.5 [facility] Comment on above: Result Comment: ARPAN Kaplan COMMENTS:NOTE: The therapeutic time for Heparin anticoagulation, based on Xa activity inhibition, is an APTT of 46-80 seconds. Performed By: #### L AB325 ####Loss Prevention Associate: DOMENICA JARA ([id number])[facility] ([facility])[address] [place] [address] aPTT Coag (Bld) [Time] 46.4 s High 20.0-30.5 [facility] Comment on above: Result Comment: ARPAN Kaplan COMMENTS:NOTE: The therapeutic time for Heparin anticoagulation, based on Xa activity inhibition, is an APTT of 46-80 seconds. Performed By: #### L AB320, [id number] ####Loss Prevention Associate: DOMENICA JARA ([id number])[facility] ([facility])[address] [place] [address] CBC (HEMOGRAM)on 03-19-2025 Erythrocyte distribution width (RBC) [Ratio] 20.8 % High 11.5-15.0 [facility] Comment on above: Performed By: #### L AB294 ####Loss Prevention Associate: DOMENICA JARA ([id number])[facility])[address] [place] [address] Hematocrit (Bld) [Volume fraction] 30.4 % Low 40.0-52.0 [facility] Comment on above: Performed By: #### L AB294 ####Loss Prevention Associate: DOMENICA JARA ([id number])[facility])[address] [place] [address] Hemoglobin (Bld) [Mass/Vol] 8.9 g/dL Low 13.0-18.0 [facility] Comment on above: Performed By: #### L AB294 ####Loss Prevention Associate: DOMENICA JARA ([id number])[facility])[address] [place] [address] MCH (RBC) [Entitic mass] 29.9 pg Normal 26.0-34.0 [facility] Comment on above: Performed By: #### L AB294 ####Loss Prevention Associate: DOMENICA JARA ([id number])[facility])[address] [place] [address] MCHC 29.3 % Low 30.5-36.0 [facility] Comment on above: Performed By: #### L AB294 ####Loss Prevention Associate: DOMENICA JARA ([id number])[facility])[address] [place] [address] MCV (RBC) [Entitic vol] 102.0 fL High 77.0-99.0 [facility] Comment on above: Performed By: #### L AB294 ####Loss Prevention Associate: DOMENICA JARA ([id number])[facility])[address] [place] [address] Platelet mean volume (Bld) [Entitic vol] 9.3 fL Normal 9.0-12.7 [facility] Comment on above: Performed By: #### L AB294 ####Loss Prevention Associate: DOMENICA JARA ([id number])[facility])[address] [place] [address] Platelets (Bld) [#/Vol] 320 10*3/uL Normal 140-440 [facility] Comment on above: Performed By: #### L AB294 ####Loss Prevention Associate: DOMENICA JARA ([id number])[facility])[address] [place] [address] RBC (Bld) [#/Vol] 2.98 10*6/uL Low 4.40-5.90 [facility] Comment on above: Performed By: #### L AB294 ####Loss Prevention Associate: DOMENICA JARA ([id number])[facility])[address] [place] [address] WBC (Bld) [#/Vol] 7.8 10*3/uL Normal 3.6-10.7 [facility] Comment on above: Performed By: #### L AB294 ####Loss Prevention Associate: DOMENICA JARA ([id number])[facility])[address] [place] [address] CBC panel Auto (Bld)Ordered By: Liseth Granado on 03-19-2025 Erythrocyte distribution width (RBC) [Ratio] 20.8 % High 11.5 - 15.0 % [facility] Hematocrit (Bld) [Volume fraction] 30.4 % Low 40.0 - 52.0 % [facility] Hemoglobin (Bld) [Mass/Vol] 8.9 g/dL Low 13.0 - 18.0 g/dL [facility] Interpretation and review of laboratory results Abnormal [facility] MCH (RBC) [Entitic mass] 29.9 pg 26. 0 - 34.0 pg [facility] MCHC (RBC) [Mass/Vol] 29.3 % Low 30.5 - 36.0 % [facility] MCV (RBC) [Entitic vol] 102 fL High 77.0 - 99.0 fL [facility] Platelet mean volume (Bld) [Entitic vol] 9.3 fL 9.0 - 12.7 fL [facility] Platelets (Bld) [#/Vol] 320 10*3/uL 140 - 440 10*3/uL [facility] RBC (Bld) [#/Vol] 2.98 10*6/uL Low 4.40 - 5.9 0 10*6/uL [facility] WBC (Bld) [#/Vol] 7.8 10*3/uL 3.6 - 10.7 10*3/uL [facility] COMPREHENSIVE METABOLIC PANE Victor M 03-19-2025 Albumin [Mass/Vol] 2.0 g/dL Low 3.5-5.0 [facility] Comment on above: Performed By: #### L AB17, [id number] ####Loss Prevention Associate: DOMENICA JARA ([id number])[facility] ([facility])[address] [place] [address] ALP [Catalytic activity/Vol] 221 U/L High 40-150 [facility] Comment on above: Performed By: #### L AB17, [id number] ####Loss Prevention Associate: DOMENICA JARA ([id number])[facility] ([facility])[address] [place] [address] ALT [Catalytic activity/Vol] 14 U/L Normal <40 [facility] Comment on above: Performed By: #### L AB17, [id number] ####Loss Prevention Associate: DOMENICA JARA ([id number])[facility] ([facility])[address] [place] [address] Anion gap [Moles/Vol] 8 mmol/L Normal 3-13 [facility] Comment on above: Performed By: #### L AB17, [id number] ####Loss Prevention Associate: DOMENICA JARA ([id number])[facility] ([facility])[address] [place] [address] AST [Catalytic activity/Vol] 52 U/L High <34 [facility] Comment on above: Performed By: #### L AB17, [id number] ####Loss Prevention Associate: DOMENICA JARA ([id number])[facility])[address] [place] [address] Bilirubin [Mass/Vol] 0.9 mg/dL Normal <1.2 [facility] Comment on above: Performed By: #### L AB17, [id number] ####Loss Prevention Associate: DOMENICA JARA ([id number])[facility])[address] [place] [address] Calcium [Mass/Vol] 9.0 mg/dL Normal 8.4-10.2 [facility] Comment on above: Performed By: #### L AB17, [id number] ####Loss Prevention Associate: DOMENICA JARA ([id number])[facility] ([facility])[address] [place] [address] Chloride [Moles/Vol] 102 mmol/L Normal 98-107 [facility] Comment on above: Performed By: #### L AB17, [id number] ####Loss Prevention Associate: DOMENICA JARA ([id number])[facility] ([facility])[address] [place] [address] CO2 [Moles/Vol] 27 mmol/L Normal 22-29 [facility] Comment on above: Performed By: #### L AB17, [id number] ####Loss Prevention Associate: DOMENICA JARA ([id number])[facility] ([facility])[address] [place] [address] Creatinine [Mass/Vol] 3.67 mg/dL High 0.72-1.25 [facility] Comment on above: Performed By: #### L AB17, [id number] ####Loss Prevention Associate: DOMENICA JARA ([id number])[facility])[address] [place] [address] [place] GLOMERULAR FILTRATION RATE ML/MIN/1.73 SQ M.PREDICTED 18.2 mL/min/1.73m*2 Low >60.0 [facility] Comment on above: Result Comment: Calc ulation based on the Chronic Kidney Disease Epidemiology Collaboration (CKD-EPI) equation refit without adjustment for race Performed By: #### L AB17, [id number] ####Loss Prevention Associate: DOMENICA JARA ([id number])[facility] ([facility])[address] [place] [address] Glucose [Mass/Vol] 85 mg/dL Normal 74-100 [facility] Comment on above: Performed By: #### L AB17, [id number] ####Loss Prevention Associate: DOMENICA JARA ([id number])[facility])[address] [place] [address] Potassium [Moles/Vol] 4.0 mmol/L Normal 3.5-5.1 [facility] Comment on above: Result Comment: [facility] potassium values may be up to 0.5 mmol/L lower than serum values. Performed By: #### L AB17, [id number] ####Loss Prevention Associate: DOMENICA JARA ([id number])[facility])[address] [place] [address] Protein [Mass/Vol] 7.4 g/dL Normal 6.4-8.3 [facility] Comment on above: Performed By: #### L AB17, [id number] ####Loss Prevention Associate: DOMENICA JARA ([id number])[facility] ([facility])[address] [place] [address] Sodium [Moles/Vol] 137 mmol/L Normal 136-145 [facility] Comment on above: Performed By: #### L AB17, [id number] ####Loss Prevention Associate: DOMENICA JARA ([id number])[facility] ([facility])[address] [place] [address] Urea nitrogen [Mass/Vol] 24 mg/dL High - [facility] Comment on above: Performed By: #### L AB17, [id number] ####Loss Prevention Associate: DOMENICA JARA ([id number])[facility])[address] [place] [address] Comprehensive metabolic 1998 panelOrdered By: Rikki Caballero on 03-19-2025 Albumin [Mass/Vol] 2 g/dL Low 3.5 - 5.0 g/dL [facility] ALP [Catalytic activity/Vol] 221 U/L High 40 - 150 U/L [facility] ALT [Catalytic activity/Vol] 14 U/L NINF - 40 U/L [facility] Anion gap [Moles/Vol] 8 mmol/L 3 - 13 mmol/L [facility] AST [Catalytic activity/Vol] 52 U/L High NINF - 34 U/L [facility] Bilirubin [Mass/Vol] 0.9 mg/dL NINF - 1.2 mg/dL [facility] Calcium [Mass/Vol] 9 mg/dL 8.4 - 10. 2 mg/dL [facility] Chloride [Moles/Vol] 102 mmol/L 98 - 10 7 mmol/L [facility] CO2 [Moles/Vol] 27 mmol/L 22 - 29 mmol/L [facility] Creatinine [Mass/Vol] 3.67 mg/dL High 0.72 - 1.25 mg/dL [facility] GFR/1.73 sq M.predicted (S/P/Bld) [Vol rate/Area] 18.2 mL/min Low - PINF [facility] Comment on above: Calculation based on the Chronic Kidney Disease Epidemiology Collaboration (CKD-EPI) equation refit without adjustment for race Glucose [Mass/Vol] 85 mg/dL 74 - 100 mg/dL [facility] Interpretation and review of laboratory results Abnormal [facility] Potassium [Moles/Vol] 4 mmol/L 3.5 - 5.1 mmol/L [facility] Comment on above: Plasma potassium macey ues may be up to 0.5 mmol/L lower than serum values. Protein [Mass/Vol] 7.4 g/dL 6.4 - 8.3 g/dL [facility] Sodium [Moles/Vol] 137 mmol/L 136 - 145 mmol/L [facility] Urea nitrogen [Mass/Vol] 24 mg/dL High 9 - 23 mg/d L [facility] Laboratory - Chemistry and C hemistry - challengeon 03-19-2025 Magnesium [Mass/Vol] 1.9 mg/dL 1.6 - 2 .6 mg/dL [facility] Laboratory - Coagulationon 0 03-19-2025 PT Coag (Bld) [Time] 17 s High 9.0 - 12.0 s [facility] MAGNESIUMon 03-19-2025 Magnesium [Mass/Vol] 1.9 mg/dL Normal 1.6-2.6 [facility] Comment on above: Result Comment: ORDHuong R COMMENTS:Higher values can be expected in females during menses. Performed By: #### L AB17, [id number] ####Loss Prevention Associate: DOMENICA JARA ([id number])[facility])[address] [place] [address] Magnesium [Mass/Vol]on 03-19 Interpretation and review of laboratory results Normal [facility] Higher values can be expected in females during menses. [facility] No Panel Informationon 03-19 Interpretation and review of laboratory results Abnormal [facility] Nursing Noteon 03-19-2025 Nursing Note Wound vac suction failing-pt requesting wound vac removed for now. Black foam dressing removed and wound packed with saline-soaked gauze covered with DSD Normal [facility] Nursing Note Pt adamantly refusing telemetry at this time, ripped off monitor and threw to the floor Normal [facility] PROTHROMBIN TIMEon INR Coag (PPP) [Relative time] 1.6 {INR} High 0.9-1.1 [facility] Comment on above: Performed By: #### L AB320, [id number] ####Loss Prevention Associate: DOMENICA JARA ([id number])[facility])[address] [place] [address] PT Coag (PPP) [Time] 17.0 s High 9.0-12.0 [facility] Comment on above: Performed By: #### L AB320, [id number] ####Loss Prevention Associate: DOMENICA JARA ([id number])[facility])[address] [place] [address] PT Coag (Bld) [Time]on 03-19 INR Coag (PPP) [Relative time] 1.6 {INR} High 0.9 - 1.1 [facility] Progress Noteon 03-19-2025 Progress Note [facility] Progress Note Normal [facility] Progress [facility] Normal [facility] Progress Note Normal [facility] aPTT Coag (Bld) [Time]on aPTT Coag (PPP) [Time] 47.3 s High 20.0 - 30.5 s [facility] Interpretation and review of laboratory results Abnormal [facility] NOTE: The therapeutic time for Heparin anticoagulation, based on Xa activity inhibition, is an APTT of 46-80 seconds. [facility] aPTT Coag (PPP) [Time] 46.4 s High 20.0 - 30.5 s [facility] NOTE: The therapeutic time for Heparin anticoagulation, based on Xa activity inhibition, is an APTT of 46-80 seconds. [facility] APTTon 03-18-2025 aPTT Coag (Bld) [Time] 51.8 s High 20.0-30.5 [facility] Comment on above: Result Comment: ARPAN R COMMENTS:NOTE: The therapeutic time for Heparin anticoagulation, based on Xa activity inhibition, is an APTT of 46-80 seconds. Performed By: #### L AB325 ####Loss Prevention Associate: DOMENICA JARA ([id number])[address] aPTT Coag (Bld) [Time] 47.6 s High 20.0-30.5 [facility] Comment on above: Result Comment: ARPAN R COMMENTS:NOTE: The therapeutic time for Heparin anticoagulation, based on Xa activity inhibition, is an APTT of 46-80 seconds. Performed By: #### L AB325 ####Loss Prevention Associate: DOMENICA JARA ([id number])[address] aPTT Coag (Bld) [Time] 48.8 s High 20.0-30.5 [facility] Comment on above: Result Comment: ARPAN R COMMENTS:NOTE: The therapeutic time for Heparin anticoagulation, based on Xa activity inhibition, is an APTT of 46-80 seconds. Performed By: #### L AB320, [id number] ####Loss Prevention Associate: DOMENICA JARA ([id number])[facility])[address] [place] [address] CBC (HEMOGRAM)on 03-18-2025 Erythrocyte distribution width (RBC) [Ratio] 20.6 % High 11.5-15.0 [facility] Comment on above: Performed By: #### L AB294 ####Loss Prevention Associate: DOMENICA JARA ([id number])[facility])[address] [place] [address] Hematocrit (Bld) [Volume fraction] 30.4 % Low 40.0-52.0 [facility] Comment on above: Performed By: #### L AB294 ####Loss Prevention Associate: DOMENICA JARA ([id number])[facility])[address] [place] [address] Hemoglobin (Bld) [Mass/Vol] 9.1 g/dL Low 13.0-18.0 [facility] Comment on above: Performed By: #### L AB294 ####Loss Prevention Associate: DOMENICA JARA ([id number])[address] MCH (RBC) [Entitic mass] 30.0 pg Normal 26.0-34.0 [facility] Comment on above: Performed By: #### L AB294 ####Loss Prevention Associate: DOMENICA JARA ([id number])[facility])[address] [place] [address] MCHC 29.9 % Low 30.5-36.0 [facility] Comment on above: Performed By: #### L AB294 ####Loss Prevention Associate: DOMENICA JARA ([id number])[facility])[address] [place] [address] MCV (RBC) [Entitic vol] 100.3 fL High 77.0-99.0 [facility] Comment on above: Performed By: #### L AB294 ####Loss Prevention Associate: DOMENICA JARA ([id number])[address] Platelet mean volume (Bld) [Entitic vol] 9.4 fL Normal 9.0-12.7 [facility] Comment on above: Performed By: #### L AB294 ####Loss Prevention Associate: DOMENICA [id number])[facility] ([facility])[address] [place] [address] Platelets (Bld) [#/Vol] 333 10*3/uL Normal 140-440 [facility] Comment on above: Performed By: #### L AB294 ####Loss Prevention Associate: DOMENICA JARA ([id number])[facility])[address] [place] [address] RBC (Bld) [#/Vol] 3.03 10*6/uL Low 4.40-5.90 [facility] Comment on above: Performed By: #### L AB294 ####Loss Prevention Associate: DOMENICA JARA ([id number])[facility])[address] [place] [address] WBC (Bld) [#/Vol] 7.6 10*3/uL Normal 3.6-10.7 [facility] Comment on above: Performed By: #### L AB294 ####Loss Prevention Associate: DOMENICA JARA ([id number])[facility])[address] [place] [address] CBC panel Auto (Bld)Ordered By: Haley Vitale on 03-18-2025 Erythrocyte distribution width (RBC) [Ratio] 20.6 % High 11.5 - 15.0 % [facility] Hematocrit (Bld) [Volume fraction] 30.4 % Low 40.0 - 52.0 % [facility] Hemoglobin (Bld) [Mass/Vol] 9.1 g/dL Low 13.0 - 18.0 g/dL [facility] Interpretation and review of laboratory results Abnormal [facility] MCH (RBC) [Entitic mass] 30 pg 26. 0 - 34.0 pg [facility] MCHC (RBC) [Mass/Vol] 29.9 % Low 30.5 - 36.0 % [facility] MCV (RBC) [Entitic vol] 100.3 fL High 77.0 - 99.0 fL [facility] Platelet mean volume (Bld) [Entitic vol] 9.4 fL 9.0 - 12.7 fL [facility] Platelets (Bld) [#/Vol] 333 10*3/uL 140 - 440 10*3/uL [facility] RBC (Bld) [#/Vol] 3.03 10*6/uL Low 4.40 - 5.9 0 10*6/uL [facility] WBC (Bld) [#/Vol] 7.6 10*3/uL 3.6 - 10.7 10*3/uL [facility] COMPREHENSIVE METABOLIC PANE Victor M 03-18-2025 Albumin [Mass/Vol] 2.0 g/dL Low 3.5-5.0 [facility] Comment on above: Performed By: #### L AB103, LAB17 ####Loss Prevention Associate: DOMENICA JARA ([id number])[facility] ([facility])[address] [place] [address] ALP [Catalytic activity/Vol] 241 U/L High 40-150 [facility] Comment on above: Performed By: #### L AB103, LAB17 ####Loss Prevention Associate: DOMENICA JARA ([id number])[facility] ([facility])[address] [place] [address] ALT [Catalytic activity/Vol] 11 U/L Normal <40 [facility] Comment on above: Performed By: #### L AB103, LAB17 ####Loss Prevention Associate: DOMENICA JARA ([id number])[facility] ([facility])[address] [place] [address] Anion gap [Moles/Vol] 10 mmol/L Normal 3-13 [facility] Comment on above: Performed By: #### L AB103, LAB17 ####Loss Prevention Associate: DOMENICA JARA ([id number])[facility] ([facility])[address] [place] [address] [place] AST [Catalytic activity/Vol] 50 U/L High <34 [facility] Comment on above: Performed By: #### L AB103, LAB17 ####Loss Prevention Associate: DOMENICA JARA ([id number])[facility] ([facility])[address] [place] [address] Bilirubin [Mass/Vol] 0.8 mg/dL Normal <1.2 [facility] Comment on above: Performed By: #### L AB103, LAB17 ####Loss Prevention Associate: DOMENICA JARA ([id number])[facility] [place] [address] Calcium [Mass/Vol] 9.0 mg/dL Normal 8.4-10.2 [facility] Comment on above: Performed By: #### L ABRadha, LAB17 ####Loss Prevention Associate: DOMENICA JARA ([id number])[facility] ([facility] [place] [address] [place] Chloride [Moles/Vol] 100 mmol/L Normal 98-107 [facility] Comment on above: Performed By: #### L VARGHESE, LAB17 ####Loss Prevention Associate: DOMENICA JARA ([id number])[facility] [place] [address] [place] CO2 [Moles/Vol] 29 mmol/L Normal 22-29 [facility] Comment on above: Performed By: #### L 103, LAB17 ####Loss Prevention Associate: DOMENICA JARA ([id number])[facility] ([facility] [place] [address] [place] Creatinine [Mass/Vol] 2.64 mg/dL High 0.72-1.25 [facility] Comment on above: Performed By: #### L 103, LAB17 ####Loss Prevention Associate: DOMENICA JARA ([id number])[facility] ([facility] [place] [address] [place] GLOMERULAR FILTRATION RATE ML/MIN/1.73 SQ M.PREDICTED 27.0 mL/min/1.73m*2 Low >60.0 [facility] Comment on above: Result Comment: Calc ulation based on the Chronic Kidney Disease Epidemiology Collaboration (CKD-EPI) equation refit without adjustment for race Performed By: #### L AB103, LAB17 ####Loss Prevention Associate: DOMENICA JARA ([id number])[facility] [place] [address] [place] Glucose [Mass/Vol] 73 mg/dL Low 74-100 [facility] Comment on above: Performed By: #### L AB103, LAB17 ####Loss Prevention Associate: DOMENICA JAAR ([id number])[facility])[address] [place] [address] Potassium [Moles/Vol] 3.4 mmol/L Low 3.5-5.1 [facility] Comment on above: Result Comment: [facility] potassium values may be up to 0.5 mmol/L lower than serum values. Performed By: #### L AB103, LAB17 ####Loss Prevention Associate: DOMENICA JARA ([id number])[facility] ([facility])[address] [place] [address] Protein [Mass/Vol] 7.3 g/dL Normal 6.4-8.3 [facility] Comment on above: Performed By: #### Tameka ISAAC103, LAB17 ####Loss Prevention Associate: DOMENICA JARA ([id number])[facility] ([facility])[address] [place] [address] Sodium [Moles/Vol] 139 mmol/L Normal 136-145 [facility] Comment on above: Performed By: #### Tameka KWONG, LAB17 ####Loss Prevention Associate: DOMENICA JARA ([id number])[facility])[address] [place] [address] Urea nitrogen [Mass/Vol] 16 mg/dL Normal 9-23 [facility] Comment on above: Performed By: #### L AB103, LAB17 ####Loss Prevention Associate: DOMENICA JARA ([id number])[facility])[address] [place] [address] Comprehensive metabolic 1998 panelon 03-18-2025 Albumin [Mass/Vol] 2 g/dL Low 3.5 - 5.0 g/dL [facility] ALP [Catalytic activity/Vol] 241 U/L High 40 - 150 U/L [facility] ALT [Catalytic activity/Vol] 11 U/L NINF - 40 U/L [facility] Anion gap [Moles/Vol] 10 mmol/L 3 - 13 mmol/L [facility] AST [Catalytic activity/Vol] 50 U/L High NINF - 34 U/L [facility] Bilirubin [Mass/Vol] 0.8 mg/dL NINF - 1.2 mg/dL [facility] Calcium [Mass/Vol] 9 mg/dL 8.4 - 10. 2 mg/dL [facility] Chloride [Moles/Vol] 100 mmol/L 98 - 10 7 mmol/L [facility] CO2 [Moles/Vol] 29 mmol/L 22 - 29 mmol/L [facility] Creatinine [Mass/Vol] 2.64 mg/dL High 0.72 - 1.25 mg/dL [facility] GFR/1.73 sq M.predicted (S/P/Bld) [Vol rate/Area] 27 mL/min Low - PINF [facility] Comment on above: Calculation based on the Chronic Kidney Disease Epidemiology Collaboration (CKD-EPI) equation refit without adjustment for race Glucose [Mass/Vol] 73 mg/dL Low 74 - 100 mg/dL [facility] Interpretation and review of laboratory results Abnormal [facility] Potassium [Moles/Vol] 3.4 mmol/L Low 3.5 - 5.1 mmol/L [facility] Comment on above: Plasma potassium macey ues may be up to 0.5 mmol/L lower than serum values. Protein [Mass/Vol] 7.3 g/dL 6.4 - 8.3 g/dL [facility] Sodium [Moles/Vol] 139 mmol/L 136 - 145 mmol/L [facility] Urea nitrogen [Mass/Vol] 16 mg/dL 9 - 23 mg/d L [facility] Laboratory - Chemistry and C hemistry - challengeon 03-18-2025 Magnesium [Mass/Vol] 1.9 mg/dL 1.6 - 2 .6 mg/dL [facility] Laboratory - Coagulationon 0 03-18-2025 PT Coag (Bld) [Time] 15.2 s High 9.0 - 12.0 s [facility] MAGNESIUMon 03-18-2025 Magnesium [Mass/Vol] 1.9 mg/dL Normal 1.6-2.6 [facility] Comment on above: Result Comment: ARPAN R COMMENTS:Higher values can be expected in females during menses. Performed By: #### L AB103, [id number] ####Loss Prevention Associate: DOMENICA JARA ([id number])[facility] [address] Magnesium [Mass/Vol]on 03-18 Interpretation and review of laboratory results Normal [facility] Higher values can be expected in females during menses. [facility] No Panel Informationon 03-18 [facility] Interpretation and review of laboratory results Abnormal [facility] PROTHROMBIN TIMEon INR Coag (PPP) [Relative time] 1.5 {INR} High 0.9-1.1 [facility] Comment on above: Result Comment: Vaughn [...] Myocardial Infarction Performed By: #### Tameka AB320, [id number] ####Loss Prevention Associate: DOMENICA JARA ([id number])[facility])[address] [place] [address] PT Coag (PPP) [Time] 15.2 s High 9.0-12.0 [facility] Comment on above: Performed By: #### Tameka AB320, [id number] ####Loss Prevention Associate: DOMENICA JARA ([id number])[facility])[address] [place] [address] PT Coag (Bld) [Time]on 03-18 INR Coag (PPP) [Relative time] 1.5 {INR} High 0.9 - 1.1 [facility] Comment on above: Recommended Anticoag ulant Therapy: [...] therapy is used to prevent Myocardial Infarction Progress Noteon 03-18-2025 Progress Note Normal [facility] Progress Note Normal [facility] Progress Note Normal [facility] aPTT Coag (Bld) [Time]on aPTT Coag (PPP) [Time] 51.8 s High 20.0 - 30.5 s [facility] Interpretation and review of laboratory results Abnormal [facility] NOTE: The therapeutic time for Heparin anticoagulation, based on Xa activity inhibition, is an APTT of 46-80 seconds. [facility] aPTT Coag (PPP) [Time] 47.6 s High 20.0 - 30.5 s [facility] Interpretation and review of laboratory results Abnormal [facility] NOTE: The therapeutic time for Heparin anticoagulation, based on Xa activity inhibition, is an APTT of 46-80 seconds. [facility] aPTT Coag (PPP) [Time] 48.8 s High 20.0 - 30.5 s [facility] NOTE: The therapeutic time for Heparin anticoagulation, based on Xa activity inhibition, is an APTT of 46-80 seconds. [facility] 30on 03-17-2025 30 Normal [facility] APTTon 03-17-2025 aPTT Coag (Bld) [Time] 44.1 s High 20.0-30.5 [facility] Comment on above: Result Comment: ARPAN R COMMENTS:NOTE: The therapeutic time for Heparin anticoagulation, based on Xa activity inhibition, is an APTT of 46-80 seconds. Performed By: #### L AB325 ####Loss Prevention Associate: DOMENICA JARA ([id number])[address] aPTT Coag (Bld) [Time] 29.1 s Normal 20.0-30.5 [facility] Comment on above: Result Comment: TRAVISE R COMMENTS:NOTE: The therapeutic time for Heparin anticoagulation, based on Xa activity inhibition, is an APTT of 46-80 seconds. Performed By: #### L AB325 ####Loss Prevention Associate: DOMENICA JARA ([id number])[facility] [place] [address] CBC (HEMOGRAM)on 03-17-2025 Erythrocyte distribution width (RBC) [Ratio] 21.2 % High 11.5-15.0 [facility] Comment on above: Performed By: #### L AB294 ####Loss Prevention Associate: DOMENICA JARA ([id number])[facility] ([facility])[address] [place] [address] Hematocrit (Bld) [Volume fraction] 33.8 % Low 40.0-52.0 [facility] Comment on above: Performed By: #### L AB294 ####Loss Prevention Associate: DOMENICA JARA ([id number])[facility])[address] [place] [address] Hemoglobin (Bld) [Mass/Vol] 10.0 g/dL Low 13.0-18.0 [facility] Comment on above: Performed By: #### L AB294 ####Loss Prevention Associate: DOMENICA JARA ([id number])[facility] ([facility])[address] [place] [address] MCH (RBC) [Entitic mass] 30.2 pg Normal 26.0-34.0 [facility] Comment on above: Performed By: #### L AB294 ####Loss Prevention Associate: DOMENICA JARA ([id number])[facility] ([facility])[address] [place] [address] MCHC 29.6 % Low 30.5-36.0 [facility] Comment on above: Performed By: #### L AB294 ####Loss Prevention Associate: DOMENICA JARA ([id number])[facility] ([facility])[address] [place] [address] MCV (RBC) [Entitic vol] 102.1 fL High 77.0-99.0 [facility] Comment on above: Performed By: #### L AB294 ####Loss Prevention Associate: DOMENICA JARA ([id number])[facility] ([facility])[address] [place] [address] Platelet mean volume (Bld) [Entitic vol] 9.2 fL Normal 9.0-12.7 [facility] Comment on above: Performed By: #### L AB294 ####Loss Prevention Associate: DOMENICA JARA ([id number])[facility])[address] [place] [address] Platelets (Bld) [#/Vol] 407 10*3/uL Normal 140-440 [facility] Comment on above: Performed By: #### L AB294 ####Loss Prevention Associate: DOMENICA JARA ([id number])[facility] ([facility])[address] [place] [address] RBC (Bld) [#/Vol] 3.31 10*6/uL Low 4.40-5.90 [facility] Comment on above: Performed By: #### L AB294 ####Loss Prevention Associate: DOMENICA JARA ([id number])[facility] ([facility])[address] [place] [address] WBC (Bld) [#/Vol] 6.7 10*3/uL Normal 3.6-10.7 [facility] Comment on above: Performed By: #### L AB294 ####Loss Prevention Associate: DOMENICA JARA ([id number])[facility])[address] [place] [address] CBC panel Auto (Bld)Ordered By: Giancarlo Lakhani on 03-17-2025 Erythrocyte distribution width (RBC) [Ratio] 21.2 % High 11.5 - 15.0 % [facility] Hematocrit (Bld) [Volume fraction] 33.8 % Low 40.0 - 52.0 % [facility] Hemoglobin (Bld) [Mass/Vol] 10 g/dL Low 13.0 - 18.0 g/dL [facility] Interpretation and review of laboratory results Abnormal [facility] MCH (RBC) [Entitic mass] 30.2 pg 26. 0 - 34.0 pg [facility] MCHC (RBC) [Mass/Vol] 29.6 % Low 30.5 - 36.0 % [facility] MCV (RBC) [Entitic vol] 102.1 fL High 77.0 - 99.0 fL [facility] Platelet mean volume (Bld) [Entitic vol] 9.2 fL 9.0 - 12.7 fL [facility] Platelets (Bld) [#/Vol] 407 10*3/uL 140 - 440 10*3/uL [facility] RBC (Bld) [#/Vol] 3.31 10*6/uL Low 4.40 - 5.9 0 10*6/uL [facility] WBC (Bld) [#/Vol] 6.7 10*3/uL 3.6 - 10.7 10*3/uL [facility] COMPREHENSIVE METABOLIC PANE Victor M 03-17-2025 Albumin [Mass/Vol] 2.2 g/dL Low 3.5-5.0 [facility] Comment on above: Performed By: #### L AB17, [id number], [id number] ####Loss Prevention Associate: DOMENICA JARA ([id number])[facility] ([facility])[address] [place] [address] ALP [Catalytic activity/Vol] 223 U/L High 40-150 [facility] Comment on above: Performed By: #### L AB17, [id number], [id number] ####Loss Prevention Associate: DOMENICA JARA ([id number])[facility] ([facility])[address] [place] [address] ALT [Catalytic activity/Vol] 15 U/L Normal <40 [facility] Comment on above: Performed By: #### L AB17, [id number], [id number] ####Loss Prevention Associate: DOMENICA JARA ([id number])[facility])[address] [place] [address] Anion gap [Moles/Vol] 12 mmol/L Normal 3-13 [facility] Comment on above: Performed By: #### L AB17, [id number], [id number] ####Loss Prevention Associate: DOMENICA JARA ([id number])[facility])[address] [place] [address] AST [Catalytic activity/Vol] 54 U/L High <34 [facility] Comment on above: Performed By: #### L AB17, [id number], [id number] ####Loss Prevention Associate: DOMENICA JARA ([id number])[facility] ([facility])[address] [place] [address] Bilirubin [Mass/Vol] 0.9 mg/dL Normal <1.2 [facility] Comment on above: Performed By: #### L AB17, [id number], HBR751 ####Loss Prevention Associate: DOMENICA JARA ([id number])[facility])[address] [place] [address] Calcium [Mass/Vol] 9.6 mg/dL Normal 8.4-10.2 [facility] Comment on above: Performed By: #### L AB17, [id number], [id number] ####Loss Prevention Associate: DOMENICA JARA ([id number])[facility] ([facility])[address] [place] [address] Chloride [Moles/Vol] 104 mmol/L Normal 98-107 [facility] Comment on above: Performed By: #### L AB17, [id number], [id number] ####Loss Prevention Associate: DOMENICA JARA ([id number])[facility])[address] [place] [address] CO2 [Moles/Vol] 25 mmol/L Normal 22-29 [facility] Comment on above: Performed By: #### L AB17, [id number], [id number] ####Loss Prevention Associate: DOMENICA JARA ([id number])[facility] ([facility])[address] [place] [address] Creatinine [Mass/Vol] 3.25 mg/dL High 0.72-1.25 [facility] Comment on above: Performed By: #### L AB17, [id number], [id number] ####Loss Prevention Associate: DOMENICA JARA ([id number])[facility])[address] [place] [address] GLOMERULAR FILTRATION RATE ML/MIN/1.73 SQ M.PREDICTED 21.1 mL/min/1.73m*2 Low >60.0 [facility] Comment on above: Result Comment: Calc ulation based on the Chronic Kidney Disease Epidemiology Collaboration (CKD-EPI) equation refit without adjustment for race Performed By: #### L AB17, [id number], [id number] ####Loss Prevention Associate: DOMENICA JARA ([id number])[facility])[address] [place] [address] Glucose [Mass/Vol] 87 mg/dL Normal 74-100 [facility] Comment on above: Performed By: #### L AB17, [id number], [id number] ####Loss Prevention Associate: DOMENICA JARA ([id number])[facility])[address] [place] [address] Potassium [Moles/Vol] 3.9 mmol/L Normal 3.5-5.1 [facility] Comment on above: Result Comment: [facility] potassium values may be up to 0.5 mmol/L lower than serum values. Performed By: #### L AB17, [id number], [id number] ####Loss Prevention Associate: DOMENICA JRAA ([id number])[facility])[address] [place] [address] Protein [Mass/Vol] 8.0 g/dL Normal 6.4-8.3 [facility] Comment on above: Performed By: #### L AB17, [id number], [id number] ####Loss Prevention Associate: DOMENICA JARA ([id number])[facility])[address] [place] [address] Sodium [Moles/Vol] 141 mmol/L Normal 136-145 [facility] Comment on above: Performed By: #### L AB17, [id number], [id number] ####Loss Prevention Associate: DOMENICA JARA ([id number])[facility])[address] [place] [address] Urea nitrogen [Mass/Vol] 22 mg/dL Normal 9-23 [facility] Comment on above: Performed By: #### L AB17, [id number], [id number] ####Loss Prevention Associate: DOMENICA JARA ([id number])[facility])[address] [place] [address] Comprehensive metabolic 1998 panelon 03-17-2025 Albumin [Mass/Vol] 2.2 g/dL Low 3.5 - 5.0 g/dL [facility] ALP [Catalytic activity/Vol] 223 U/L High 40 - 150 U/L [facility] ALT [Catalytic activity/Vol] 15 U/L NINF - 40 U/L [facility] Anion gap [Moles/Vol] 12 mmol/L 3 - 13 mmol/L [facility] AST [Catalytic activity/Vol] 54 U/L High NINF - 34 U/L [facility] Bilirubin [Mass/Vol] 0.9 mg/dL NINF - 1.2 mg/dL [facility] Calcium [Mass/Vol] 9.6 mg/dL 8.4 - 10. 2 mg/dL [facility] Chloride [Moles/Vol] 104 mmol/L 98 - 10 7 mmol/L [facility] CO2 [Moles/Vol] 25 mmol/L 22 - 29 mmol/L [facility] Creatinine [Mass/Vol] 3.25 mg/dL High 0.72 - 1.25 mg/dL [facility] GFR/1.73 sq M.predicted (S/P/Bld) [Vol rate/Area] 21.1 mL/min Low - PINF [facility] Comment on above: Calculation based on the Chronic Kidney Disease Epidemiology Collaboration (CKD-EPI) equation refit without adjustment for race Glucose [Mass/Vol] 87 mg/dL 74 - 100 mg/dL [facility] Interpretation and review of laboratory results Abnormal [facility] Potassium [Moles/Vol] 3.9 mmol/L 3.5 - 5.1 mmol/L [facility] Comment on above: Plasma potassium macey ues may be up to 0.5 mmol/L lower than serum values. Protein [Mass/Vol] 8 g/dL 6.4 - 8.3 g/dL [facility] Sodium [Moles/Vol] 141 mmol/L 136 - 145 mmol/L [facility] Urea nitrogen [Mass/Vol] 22 mg/dL 9 - 23 mg/d L [facility] Laboratory - Chemistry and C hemistry - challengeon 03-17-2025 Magnesium [Mass/Vol] 2.2 mg/dL 1.6 - 2 .6 mg/dL [facility] Laboratory - Coagulationon 0 03-17-2025 PT Coag (Bld) [Time] 16 s High 9.0 - 12.0 s [facility] MAGNESIUMon 03-17-2025 Magnesium [Mass/Vol] 2.2 mg/dL Normal 1.6-2.6 [facility] Comment on above: Result Comment: ARPAN R COMMENTS:Higher values can be expected in females during menses. Performed By: #### L AB17, [id number], [id number] ####Loss Prevention Associate: DOMENICA JARA ([id number])[facility] [employer])[address] [place] [address] Magnesium [Mass/Vol]on 03-17 Interpretation and review of laboratory results Normal [facility] Higher values can be expected in females during menses. [facility] NT PRO BNPon 03-17-2025 NT PRO BNP >74549 High <125 [facility] Comment on above: Performed By: #### L AB17, [id number], [id number] ####Loss Prevention Associate: DOMENICA JARA ([id number])[facility] [employer] [facility])[address] [place] [address] Natriuretic peptide B [Mass/ Vol]on 03-17-2025 Interpretation and review of laboratory results Abnormal [facility] Natriuretic peptide B (Bld) [Mass/Vol] pg/mL High NINF - 125 pg/mL [facility] No Panel Informationon 03-17 [facility] Nursing Noteon 03-17-2025 Nursing Note Normal [facility] PROTHROMBIN TIMEon INR Coag (PPP) [Relative time] 1.5 {INR} High 0.9-1.1 [facility] Comment on above: Result Comment: Vaughn [...] Myocardial Infarction Performed By: #### L AB320 ####Loss Prevention Associate: DOMENICA JARA ([id number])[facility] ([facility])[address] [place] [address] PT Coag (PPP) [Time] 16.0 s High 9.0-12.0 [facility] Comment on above: Performed By: #### L AB320 ####Loss Prevention Associate: DOMENICA JARA ([id number])[facility] ([facility])[address] [place], [place] [id number] [facility] PT Coag (Bld) [Time]on 03-17 INR Coag (PPP) [Relative time] 1.5 {INR} High 0.9 - 1.1 [facility] Comment on above: Recommended Anticoag ulant Therapy: [...] therapy is used to prevent Myocardial Infarction Interpretation and review of laboratory results Abnormal [facility] Progress Noteon 03-17-2025 Progress Note Normal [facility] Progress Note Normal [facility] Progress Note Normal [facility] aPTT Coag (Bld) [Time]on aPTT Coag (PPP) [Time] 44.1 s High 20.0 - 30.5 s [facility] Interpretation and review of laboratory results Abnormal [facility] NOTE: The therapeutic time for Heparin anticoagulation, based on Xa activity inhibition, is an APTT of 46-80 seconds. [facility] aPTT Coag (PPP) [Time] 29.1 s 20.0 - 30.5 s [facility] Interpretation and review of laboratory results Normal [facility] NOTE: The therapeutic time for Heparin anticoagulation, based on Xa activity inhibition, is an APTT of 46-80 seconds. [facility] 30on 03-16-2025 30 Normal [facility] 30 Normal [facility] CBC (HEMOGRAM)on 03-16-2025 Erythrocyte distribution width (RBC) [Ratio] 21.2 % High 11.5-15.0 [facility] Comment on above: Performed By: #### L AB294 ####Loss Prevention Associate: DOMENICA JARA ([id number])[facility])[address] [place] [address] Hematocrit (Bld) [Volume fraction] 30.2 % Low 40.0-52.0 [facility] Comment on above: Performed By: #### L AB294 ####Loss Prevention Associate: DOMENICA JARA ([id number])[facility])[address] [place] [address] Hemoglobin (Bld) [Mass/Vol] 9.1 g/dL Low 13.0-18.0 [facility] Comment on above: Performed By: #### L AB294 ####Loss Prevention Associate: DOMENICA JARA ([id number])[facility])[address] [place] [address] MCH (RBC) [Entitic mass] 30.1 pg Normal 26.0-34.0 [facility] Comment on above: Performed By: #### L AB294 ####Loss Prevention Associate: DOMENICA JARA ([id number])[facility])[address] [place] [address] MCHC 30.1 % Low 30.5-36.0 [facility] Comment on above: Performed By: #### L AB294 ####Loss Prevention Associate: DOMENICA JARA ([id number])[facility])[address] [place] [address] MCV (RBC) [Entitic vol] 100.0 fL High 77.0-99.0 [facility] Comment on above: Performed By: #### L AB294 ####Loss Prevention Associate: DOMENICA JARA ([id number])[facility])[address] [place] [address] Platelet mean volume (Bld) [Entitic vol] 9.0 fL Normal 9.0-12.7 [facility] Comment on above: Performed By: #### L AB294 ####Loss Prevention Associate: DOMENICA JARA ([id number])[facility])[address] [place] [address] Platelets (Bld) [#/Vol] 372 10*3/uL Normal 140-440 [facility] Comment on above: Performed By: #### L AB294 ####Loss Prevention Associate: DOMENICA JARA ([id number])[address] RBC (Bld) [#/Vol] 3.02 10*6/uL Low 4.40-5.90 [facility] Comment on above: Performed By: #### L AB294 ####Loss Prevention Associate: DOMENICA JARA ([id number])[address] WBC (Bld) [#/Vol] 7.0 10*3/uL Normal 3.6-10.7 [facility] Comment on above: Performed By: #### L AB294 ####Loss Prevention Associate: DOMENICA JARA ([id number])[facility])[address] [place] [address] CBC panel Auto (Bld)Ordered By: Callie Steele on 03-16-2025 Erythrocyte distribution width (RBC) [Ratio] 21.2 % High 11.5 - 15.0 % [facility] Hematocrit (Bld) [Volume fraction] 30.2 % Low 40.0 - 52.0 % [facility] Hemoglobin (Bld) [Mass/Vol] 9.1 g/dL Low 13.0 - 18.0 g/dL [facility] Interpretation and review of laboratory results Abnormal [facility] MCH (RBC) [Entitic mass] 30.1 pg 26. 0 - 34.0 pg [facility] MCHC (RBC) [Mass/Vol] 30.1 % Low 30.5 - 36.0 % [facility] MCV (RBC) [Entitic vol] 100 fL High 77.0 - 99.0 fL [facility] Platelet mean volume (Bld) [Entitic vol] 9 fL 9.0 - 12.7 fL [facility] Platelets (Bld) [#/Vol] 372 10*3/uL 140 - 440 10*3/uL [facility] RBC (Bld) [#/Vol] 3.02 10*6/uL Low 4.40 - 5.9 0 10*6/uL [facility] WBC (Bld) [#/Vol] 7 10*3/uL 3.6 - 10.7 10*3/uL [facility] COMPREHENSIVE METABOLIC PANE Victor M 03-16-2025 Albumin [Mass/Vol] 2.0 g/dL Low 3.5-5.0 [facility] Comment on above: Performed By: #### L AB17, [id number] ####Loss Prevention Associate: DOMENICA JARA ([id number])[facility] ([facility])[address] [place] [address] ALP [Catalytic activity/Vol] 194 U/L High 40-150 [facility] Comment on above: Performed By: #### L AB17, [id number] ####Loss Prevention Associate: DOMENICA JARA ([id number])[facility] ([facility])[address] [place] [address] ALT [Catalytic activity/Vol] 13 U/L Normal <40 [facility] Comment on above: Performed By: #### L AB17, [id number] ####Loss Prevention Associate: DOMENICA JARA ([id number])[facility] ([facility])[address] [place] [address] Anion gap [Moles/Vol] 9 mmol/L Normal 3-13 [facility] Comment on above: Performed By: #### L AB17, [id number] ####Loss Prevention Associate: DOMENICA JARA ([id number])[facility] ([facility])[address] [place] [address] AST [Catalytic activity/Vol] 47 U/L High <34 [facility] Comment on above: Performed By: #### L AB17, [id number] ####Loss Prevention Associate: DOMENICA JARA ([id number])[facility])[address] [place] [address] Bilirubin [Mass/Vol] 0.9 mg/dL Normal <1.2 [facility] Comment on above: Performed By: #### L AB17, [id number] ####Loss Prevention Associate: DOMENICA JARA ([id number])[facility] ([facility] [place] [address] [place] Calcium [Mass/Vol] 9.1 mg/dL Normal 8.4-10.2 [facility] Comment on above: Performed By: #### L AB17, [id number] ####Loss Prevention Associate: DOMENICA JARA ([id number])[facility] ([facility])[address] [place] [address] [place] Chloride [Moles/Vol] 104 mmol/L Normal 98-107 [facility] Comment on above: Performed By: #### L AB17, [id number] ####Loss Prevention Associate: DOMENICA JARA ([id number])[facility] ([facility])[address] [place] [address] CO2 [Moles/Vol] 26 mmol/L Normal 22-29 [facility] Comment on above: Performed By: #### L AB17, [id number] ####Loss Prevention Associate: DOMENICA JARA ([id number])[facility] ([facility])[address] [place] [address] Creatinine [Mass/Vol] 2.35 mg/dL High 0.72-1.25 [facility] Comment on above: Performed By: #### L AB17, [id number] ####Loss Prevention Associate: DOMENICA JARA ([id number])[facility] ([facility])[address] [place] [address] [place] GLOMERULAR FILTRATION RATE ML/MIN/1.73 SQ M.PREDICTED 31.1 mL/min/1.73m*2 Low >60.0 [facility] Comment on above: Result Comment: Calc ulation based on the Chronic Kidney Disease Epidemiology Collaboration (CKD-EPI) equation refit without adjustment for race Performed By: #### L AB17, [id number] ####Loss Prevention Associate: DOMENICA JARA ([id number])[facility] ([facility])[address] [place] [address] [place] Glucose [Mass/Vol] 83 mg/dL Normal 74-100 [facility] Comment on above: Performed By: #### L AB17, [id number] ####Loss Prevention Associate: DOMENICA JARA ([id number])[facility] ([facility])[address] [place] [address] Potassium [Moles/Vol] 4.1 mmol/L Normal 3.5-5.1 [facility] Comment on above: Result Comment: [facility] potassium values may be up to 0.5 mmol/L lower than serum values. Performed By: #### L AB17, [id number] ####Loss Prevention Associate: DOMENICA JARA ([id number])[facility] ([facility])[address] [place] [address] Protein [Mass/Vol] 7.3 g/dL Normal 6.4-8.3 [facility] Comment on above: Performed By: #### L AB17, [id number] ####Loss Prevention Associate: DOMENICA JARA ([id number])[facility])[address] [place] [address] Sodium [Moles/Vol] 139 mmol/L Normal 136-145 [facility] Comment on above: Performed By: #### L AB17, [id number] ####Loss Prevention Associate: DOMENICA JARA ([id number])[facility])[address] [place] [address] Urea nitrogen [Mass/Vol] 18 mg/dL Normal 9-23 [facility] Comment on above: Performed By: #### L AB17, [id number] ####Loss Prevention Associate: DOMENICA JARA ([id number])[facility])[address] [place] [address] Comprehensive metabolic 1998 panelon 03-16-2025 Albumin [Mass/Vol] 2 g/dL Low 3.5 - 5.0 g/dL [facility] ALP [Catalytic activity/Vol] 194 U/L High 40 - 150 U/L [facility] ALT [Catalytic activity/Vol] 13 U/L NINF - 40 U/L [facility] Anion gap [Moles/Vol] 9 mmol/L 3 - 13 mmol/L [facility] AST [Catalytic activity/Vol] 47 U/L High NINF - 34 U/L [facility] Bilirubin [Mass/Vol] 0.9 mg/dL NINF - 1.2 mg/dL [facility] Calcium [Mass/Vol] 9.1 mg/dL 8.4 - 10. 2 mg/dL [facility] Chloride [Moles/Vol] 104 mmol/L 98 - 10 7 mmol/L [facility] CO2 [Moles/Vol] 26 mmol/L 22 - 29 mmol/L [facility] Creatinine [Mass/Vol] 2.35 mg/dL High 0.72 - 1.25 mg/dL [facility] GFR/1.73 sq M.predicted (S/P/Bld) [Vol rate/Area] 31.1 mL/min Low - PINF [facility] Comment on above: Calculation based on the Chronic Kidney Disease Epidemiology Collaboration (CKD-EPI) equation refit without adjustment for race Glucose [Mass/Vol] 83 mg/dL 74 - 100 mg/dL [facility] Interpretation and review of laboratory results Abnormal [facility] Potassium [Moles/Vol] 4.1 mmol/L 3.5 - 5.1 mmol/L [facility] Comment on above: Plasma potassium macey ues may be up to 0.5 mmol/L lower than serum values. Protein [Mass/Vol] 7.3 g/dL 6.4 - 8.3 g/dL [facility] Sodium [Moles/Vol] 139 mmol/L 136 - 145 mmol/L [facility] Urea nitrogen [Mass/Vol] 18 mg/dL 9 - 23 mg/d L [facility] Laboratory - Chemistry and C hemistry - challengeon 03-16-2025 Magnesium [Mass/Vol] 2 mg/dL 1.6 - 2 .6 mg/dL [facility] - Coagulationon 0 03-16-2025 PT Coag (Bld) [Time] 17.3 s High 9.0 - 12.0 s [facility] MAGNESIUMon 03-16-2025 Magnesium [Mass/Vol] 2.0 mg/dL Normal 1.6-2.6 [facility] Comment on above: Result Comment: ARPAN Kaplan COMMENTS:Higher values can be expected in females during menses. Performed By: #### L AB17, [id number] ####Loss Prevention Associate: DOMENICA JARA ([id number])[facility] ([address] Magnesium [Mass/Vol]on 03-16 Interpretation and review of laboratory results Normal [facility] Higher values can be expected in females during menses. [facility] No Panel Informationon 03-16 [facility] PROTHROMBIN TIMEon INR Coag (PPP) [Relative time] 1.7 {INR} High 0.9-1.1 [facility] Comment on above: Result Comment: Vaughn [...] Myocardial Infarction Performed By: #### Tameka AB320 ####Loss Prevention Associate: DOMENICA JARA ([id number])[address] PT Coag (PPP) [Time] 17.3 s High 9.0-12.0 [facility] Comment on above: Performed By: #### Tameka AB320 ####Loss Prevention Associate: DOMENICA JARA ([id number])[address] PT Coag (Bld) [Time]on 03-16 INR Coag (PPP) [Relative time] 1.7 {INR} High 0.9 - 1.1 [facility] Comment on above: Recommended Anticoag ulant Therapy: [...] therapy is used to prevent Myocardial Infarction Interpretation and review of laboratory results Abnormal [facility] Progress Noteon 03-16-2025 Progress Note Normal [facility] Progress Note Normal [facility] Progress [facility] Normal [facility] Progress Note Normal [facility] Progress Note Normal [facility] 30on 03-15-2025 30 Normal [facility] 30 Normal [facility] [id number] 03-15-2025 [id number] Normal [facility] CBC (HEMOGRAM)on 03-15-2025 Erythrocyte distribution width (RBC) [Ratio] 21.3 % High 11.5-15.0 [facility] Comment on above: Performed By: #### L AB294 ####Loss Prevention Associate: DOMENICA JARA ([id number])[facility])[address] [place] [address] Hematocrit (Bld) [Volume fraction] 30.1 % Low 40.0-52.0 [facility] Comment on above: Performed By: #### L AB294 ####Loss Prevention Associate: DOMENICA JARA ([id number])[facility])[address] [place] [address] Hemoglobin (Bld) [Mass/Vol] 9.2 g/dL Low 13.0-18.0 [facility] Comment on above: Performed By: #### L AB294 ####Loss Prevention Associate: DOMENICA JARA ([id number])[facility])[address] [place] [address] MCH (RBC) [Entitic mass] 30.5 pg Normal 26.0-34.0 [facility] Comment on above: Performed By: #### L AB294 ####Loss Prevention Associate: DOMENICA JARA ([id number])[facility])[address] [place] [address] MCHC 30.6 % Normal 30.5-36.0 [facility] Comment on above: Performed By: #### L AB294 ####Loss Prevention Associate: DOMENICA JARA ([id number])[facility])[address] [place] [address] MCV (RBC) [Entitic vol] 99.7 fL High 77.0-99.0 [facility] Comment on above: Performed By: #### L AB294 ####Loss Prevention Associate: DOMENICA JARA ([id number])[facility])[address] [place] [address] Platelet mean volume (Bld) [Entitic vol] 9.0 fL Normal 9.0-12.7 [facility] Comment on above: Performed By: #### L AB294 ####Loss Prevention Associate: DOMENICA JARA ([id number])[facility] ([facility])[address] [place] [address] Platelets (Bld) [#/Vol] 392 10*3/uL Normal 140-440 [facility] Comment on above: Performed By: #### L AB294 ####Loss Prevention Associate: DOMENICA JARA ([id number])[facility])[address] [place] [address] RBC (Bld) [#/Vol] 3.02 10*6/uL Low 4.40-5.90 [facility] Comment on above: Performed By: #### L AB294 ####Loss Prevention Associate: DOMENICA JARA ([id number])[facility])[address] [place] [address] WBC (Bld) [#/Vol] 6.7 10*3/uL Normal 3.6-10.7 [facility] Comment on above: Performed By: #### L AB294 ####Loss Prevention Associate: DOMENICA JARA ([id number])[facility] ([facility])[address] [place] [address] CBC panel Auto (Bld)on 03-15 Erythrocyte distribution width (RBC) [Ratio] 21.3 % High 11.5 - 15.0 % [facility] Hematocrit (Bld) [Volume fraction] 30.1 % Low 40.0 - 52.0 % [facility] Hemoglobin (Bld) [Mass/Vol] 9.2 g/dL Low 13.0 - 18.0 g/dL [facility] Interpretation and review of laboratory results Abnormal [facility] MCH (RBC) [Entitic mass] 30.5 pg 26. 0 - 34.0 pg [facility] MCHC (RBC) [Mass/Vol] 30.6 % 30.5 - 36.0 % [facility] MCV (RBC) [Entitic vol] 99.7 fL High 77.0 - 99.0 fL [facility] Platelet mean volume (Bld) [Entitic vol] 9 fL 9.0 - 12.7 fL [facility] Platelets (Bld) [#/Vol] 392 10*3/uL 140 - 440 10*3/uL [facility] RBC (Bld) [#/Vol] 3.02 10*6/uL Low 4.40 - 5.9 0 10*6/uL [facility] WBC (Bld) [#/Vol] 6.7 10*3/uL 3.6 - 10.7 10*3/uL [facility] COMPREHENSIVE METABOLIC PANE Victor M 03-15-2025 Albumin [Mass/Vol] 2.0 g/dL Low 3.5-5.0 [facility] Comment on above: Performed By: #### L AB103, LAB17 ####Loss Prevention Associate: DOMENICA JARA ([id number])[address] ALP [Catalytic activity/Vol] 201 U/L High 40-150 [facility] Comment on above: Performed By: #### L AB103, LAB17 ####Loss Prevention Associate: DOMENICA JARA ([id number])[facility])[address] [place] [address] ALT [Catalytic activity/Vol] 14 U/L Normal <40 [facility] Comment on above: Performed By: #### L AB103, LAB17 ####Loss Prevention Associate: DOMENICA JARA ([id number])[address] Anion gap [Moles/Vol] 11 mmol/L Normal 3-13 [facility] Comment on above: Performed By: #### L AB103, LAB17 ####Loss Prevention Associate: DOMENICA JARA ([id number])[facility])[address] [place] [address] [place] AST [Catalytic activity/Vol] 49 U/L High <34 [facility] Comment on above: Performed By: #### L 103, LAB17 ####Loss Prevention Associate: DOMENICA JARA ([id number])[facility] [place] [address] [place] Bilirubin [Mass/Vol] 0.8 mg/dL Normal <1.2 [facility] Comment on above: Performed By: #### L AB103, LAB17 ####Loss Prevention Associate: DOMENICA JARA ([id number])[facility])[address] [place] [address] Calcium [Mass/Vol] 9.2 mg/dL Normal 8.4-10.2 [facility] Comment on above: Performed By: #### Tameka KWONG, LAB17 ####Loss Prevention Associate: DOMENICA JARA ([id number])[facility])[address] [place] [address] [place] Chloride [Moles/Vol] 100 mmol/L Normal 98-107 [facility] Comment on above: Performed By: #### Tameka KWONG, LAB17 ####Loss Prevention Associate: DOMENICA JARA ([id number])[facility] ([facility])[address] [place] [address] [place] CO2 [Moles/Vol] 28 mmol/L Normal 22-29 [facility] Comment on above: Performed By: #### L 103, LAB17 ####Loss Prevention Associate: DOMENICA JARA ([id number])[facility])[address] [place] [address] [place] Creatinine [Mass/Vol] 3.13 mg/dL High 0.72-1.25 [facility] Comment on above: Performed By: #### L AB103, LAB17 ####Loss Prevention Associate: DOMENICA JARA ([id number])[facility])[address] [place] [address] [place] GLOMERULAR FILTRATION RATE ML/MIN/1.73 SQ M.PREDICTED 22.0 mL/min/1.73m*2 Low >60.0 [facility] Comment on above: Result Comment: Calc ulation based on the Chronic Kidney Disease Epidemiology Collaboration (CKD-EPI) equation refit without adjustment for race Performed By: #### L VARGHESE, LAB17 ####Loss Prevention Associate: DOMENICA JARA ([id number])[facility] ([facility])[address] [place] [address] Glucose [Mass/Vol] 91 mg/dL Normal 74-100 [facility] Comment on above: Performed By: #### L AB103, LAB17 ####Loss Prevention Associate: DOMENICA JARA ([id number])[facility])[address] [place] [address] Potassium [Moles/Vol] 4.5 mmol/L Normal 3.5-5.1 [facility] Comment on above: Result Comment: [facility] potassium values may be up to 0.5 mmol/L lower than serum values. Performed By: #### L VARGHESE, LAB17 ####Loss Prevention Associate: DOMENICA JARA ([id number])[facility] [place] [address] Protein [Mass/Vol] 7.6 g/dL Normal 6.4-8.3 [facility] Comment on above: Performed By: #### L AB103, LAB17 ####Loss Prevention Associate: DOMENICA JARA ([id number])[facility])[address] [place] [address] Sodium [Moles/Vol] 139 mmol/L Normal 136-145 [facility] Comment on above: Performed By: #### L AB103, LAB17 ####Loss Prevention Associate: DOMENICA JARA ([id number])[facility] ([facility])[address] [place] [address] Urea nitrogen [Mass/Vol] 30 mg/dL High 9-23 [facility] Comment on above: Performed By: #### L AB103, LAB17 ####Loss Prevention Associate: DOMENICA JARA ([id number])[facility])[address] [place] [address] Comprehensive metabolic 1998 panelOrdered By: Jenni Romano on 03-15-2025 Albumin [Mass/Vol] 2 g/dL Low 3.5 - 5.0 g/dL [facility] ALP [Catalytic activity/Vol] 201 U/L High 40 - 150 U/L [facility] ALT [Catalytic activity/Vol] 14 U/L NINF - 40 U/L [facility] Anion gap [Moles/Vol] 11 mmol/L 3 - 13 mmol/L [facility] AST [Catalytic activity/Vol] 49 U/L High NINF - 34 U/L [facility] Bilirubin [Mass/Vol] 0.8 mg/dL NINF - 1.2 mg/dL [facility] Calcium [Mass/Vol] 9.2 mg/dL 8.4 - 10. 2 mg/dL [facility] Chloride [Moles/Vol] 100 mmol/L 98 - 10 7 mmol/L [facility] CO2 [Moles/Vol] 28 mmol/L 22 - 29 mmol/L [facility] Creatinine [Mass/Vol] 3.13 mg/dL High 0.72 - 1.25 mg/dL [facility] GFR/1.73 sq M.predicted (S/P/Bld) [Vol rate/Area] 22 mL/min Low - PINF [facility] Comment on above: Calculation based on the Chronic Kidney Disease Epidemiology Collaboration (CKD-EPI) equation refit without adjustment for race Glucose [Mass/Vol] 91 mg/dL 74 - 100 mg/dL [facility] Interpretation and review of laboratory results Abnormal [facility] Potassium [Moles/Vol] 4.5 mmol/L 3.5 - 5.1 mmol/L [facility] Comment on above: Plasma potassium macey ues may be up to 0.5 mmol/L lower than serum values. Protein [Mass/Vol] 7.6 g/dL 6.4 - 8.3 g/dL [facility] Sodium [Moles/Vol] 139 mmol/L 136 - 145 mmol/L [facility] Urea nitrogen [Mass/Vol] 30 mg/dL High 9 - 23 mg/d L [facility] Consulton 03-15-2025 Consult Normal [facility] Consult Normal [facility] FREE T4on 03-15-2025 Free T4 [Mass/Vol] 0.89 ng/dL Normal 0.70-1.48 [facility] Comment on above: Performed By: #### L AB127 ####Loss Prevention Associate: DOMENICA JARA ([id number])[facility])[address] [place] [address] Free T4 [Mass/Vol]on 025 Free T4 Dialysis [Mass/Vol] 0.89 ng/dL 0.70 - 1.48 ng/dL [facility] Interpretation and review of laboratory results Normal [facility] Laboratory - Chemistry and C hemistry - challengeon 03-15-2025 Magnesium [Mass/Vol] 2 mg/dL 1.6 - 2 .6 mg/dL [facility] - Coagulationon 0 03-15-2025 PT Coag (Bld) [Time] 17.9 s High 9.0 - 12.0 s [facility] MAGNESIUMon 03-15-2025 Magnesium [Mass/Vol] 2.0 mg/dL Normal 1.6-2.6 [facility] Comment on above: Result Comment: ARPAN Kaplan COMMENTS:Higher values can be expected in females during menses. Performed By: #### L AB103, LAB17 ####Loss Prevention Associate: DOMENICA JARA ([id number])[facility])[address] [place] [address] Magnesium [Mass/Vol]on 03-15 Interpretation and review of laboratory results Normal [facility] Higher values can be expected in females during menses. [facility] Nursing Noteon 03-15-2025 Nursing Note Normal [facility] Nursing Note Normal [facility] PROTHROMBIN TIMEon INR Coag (PPP) [Relative time] 1.7 {INR} High 0.9-1.1 [facility] Comment on above: Result Comment: Vaughn [...] Myocardial Infarction Performed By: #### L AB320 ####Loss Prevention Associate: DOMENICA JARA ([id number])[facility] ([facility])[address] [place] [address] PT Coag (PPP) [Time] 17.9 s High 9.0-12.0 [facility] Comment on above: Performed By: #### L AB320 ####Loss Prevention Associate: DOMENICA JARA ([id number])[facility] ([facility])[address] [place] [address] PT Coag (Bld) [Time]on 03-15 INR Coag (PPP) [Relative time] 1.7 {INR} High 0.9 - 1.1 [facility] Comment on above: Recommended Anticoag ulant Therapy: [...] therapy is used to prevent Myocardial Infarction Interpretation and review of laboratory results Abnormal [facility] Progress Noteon 03-15-2025 Progress Note Normal [facility] Progress Note Normal [facility] Progress [facility] Normal [facility] Progress Note Normal [facility] Prothrombin Time w/INRon INR Normal [facility] Comment on above: Order Comment: 413.2 Result Comment: [facility] Performed By: #### L 300.3900 #### [facility] [address] [place], [address] PROTIME Normal 11.7-14.9 [facility] Comment on above: Order Comment: 413.2 Result Comment: [facility] Performed By: #### L 300.3900 #### [facility] [address] [place], [address] [place] Lower extremity arteryOrd ered By: Sulaiman Mullen on 03-15-2025 Right arm BP 130 mmHg [facility] [employer] Work Phone: [place] Lower extremity arteryon 03-15-2025 Right side findings: Resting KIM is non-compressible. Left side findings: Resting KIM is non-compressible. Reason for TBI exam: distal wound/ulcer and digit symptoms. Bilateral ABIs may be overestimated due to medial calcinosis based on arterial waveforms. Right side findings: Non-compressible resting KIM. Left side findings: Non-compressible resting KIM. Right PVR waveforms: Normal - lower thigh, calf, ankle, metatarsal region, 1st digit, 2nd digit, 3rd digit, 4th digit and 5th digit. Left PVR waveforms: Normal - lower thigh, calf, ankle, metatarsal region and 5th digit. Study Details Pulsed volume recording (PVR) and photo plethysmography was performed. The exam was performed with the patient in the supine position. Overall the study quality was adequate. Study was technically difficult due to: patient movement. KIM Bilateral ABIs may be overestimated due to medial calcinosis based on arterial waveforms. Right side findings: Non-compressible resting KIM. Left side findings: Non-compressible resting KIM. Right PVR waveforms: Normal - lower thigh, calf, ankle, metatarsal region, 1st digit, 2nd digit, 3rd digit, 4th digit and 5th digit. Left PVR waveforms: Normal - lower thigh, calf, ankle, metatarsal region and 5th digit. 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 Could not obtain right TBI due to patient constant movement of feet. CV CPACS 30on 03-14-2025 30 Normal [facility] [id number] 03-14-2025 [id number] Normal [facility] BASIC METABOLIC PANELon - Anion gap [Moles/Vol] 11 mmol/L Normal 3-13 [facility] Comment on above: Performed By: #### L AB15, [id number], LAB18 ####Loss Prevention Associate: DOMENICA JARA ([id number])[facility] ([address] Calcium [Mass/Vol] 10.1 mg/dL Normal 8.4-10.2 [facility] Comment on above: Performed By: #### L AB15, [id number], LAB18 ####Loss Prevention Associate: DOMENICA JARA ([id number])[facility])[address] [place] [address] Chloride [Moles/Vol] 102 mmol/L Normal 98-107 [facility] Comment on above: Performed By: #### L AB15, [id number], LAB18 ####Loss Prevention Associate: DOMENICA JARA ([id number])[facility])[address] [place] [address] CO2 [Moles/Vol] 28 mmol/L Normal 22-29 [facility] Comment on above: Performed By: #### L AB15, [id number], LAB18 ####Loss Prevention Associate: DOMENICA JARA ([id number])[facility])[address] [place] [address] Creatinine [Mass/Vol] 4.96 mg/dL High 0.72-1.25 [facility] Comment on above: Performed By: #### L AB15, [id number], LAB18 ####Loss Prevention Associate: DOMENICA JARA ([id number])[facility] ([facility])[address] [place] [address] GLOMERULAR FILTRATION RATE ML/MIN/1.73 SQ M.PREDICTED 12.7 mL/min/1.73m*2 Low >60.0 [facility] Comment on above: Result Comment: Calc ulation based on the Chronic Kidney Disease Epidemiology Collaboration (CKD-EPI) equation refit without adjustment for race Performed By: #### L AB15, [id number], LAB18 ####Loss Prevention Associate: DOMENICA JARA ([id number])[facility] ([facility])[address] [place] [address] [place] Glucose [Mass/Vol] 99 mg/dL Normal 74-100 [facility] Comment on above: Performed By: #### L AB15, [id number], LAB18 ####Loss Prevention Associate: DOMENICA JARA ([id number])[facility])[address] [place] [address] [place] Potassium [Moles/Vol] 5.2 mmol/L High 3.5-5.1 [facility] Comment on above: Result Comment: [facility] potassium values may be up to 0.5 mmol/L lower than serum values. Performed By: #### L AB15, [id number], LAB18 ####Loss Prevention Associate: DOMENICA JARA ([id number])[facility] ([facility])[address] [place] [address] Sodium [Moles/Vol] 141 mmol/L Normal 136-145 [facility] Comment on above: Performed By: #### L AB15, [id number], LAB18 ####Loss Prevention Associate: DOMENICA JARA ([id number])[facility] ([facility])[address] [place] [address] Urea nitrogen [Mass/Vol] 57 mg/dL High 9-23 [facility] Comment on above: Performed By: #### L AB15, [id number], LAB18 ####Loss Prevention Associate: DOMENICA JARA ([id number])[facility] ([facility])[address] [place] [address] Basic metabolic 1998 panelOr dered By: Brandy Ross on 03-14-2025 Anion gap [Moles/Vol] 11 mmol/L 3 - 13 mmol/L [facility] Calcium [Mass/Vol] 10.1 mg/dL 8.4 - 10. 2 mg/dL [facility] Chloride [Moles/Vol] 102 mmol/L 98 - 10 7 mmol/L [facility] CO2 [Moles/Vol] 28 mmol/L 22 - 29 mmol/L [facility] Creatinine [Mass/Vol] 4.96 mg/dL High 0.72 - 1.25 mg/dL [facility] GFR/1.73 sq M.predicted (S/P/Bld) [Vol rate/Area] 12.7 mL/min Low - PINF [facility] Comment on above: Calculation based on the Chronic Kidney Disease Epidemiology Collaboration (CKD-EPI) equation refit without adjustment for race Glucose [Mass/Vol] 99 mg/dL 74 - 100 mg/dL [facility] Interpretation and review of laboratory results Abnormal [facility] Potassium [Moles/Vol] 5.2 mmol/L High 3.5 - 5.1 mmol/L [facility] Comment on above: Plasma potassium macey ues may be up to 0.5 mmol/L lower than serum values. Sodium [Moles/Vol] 141 mmol/L 136 - 145 mmol/L [facility] Urea nitrogen [Mass/Vol] 57 mg/dL High 9 - 23 mg/d L [facility] Consulton 03-14-2025 Consult Normal [facility] Consult Normal [facility] Consult Normal [facility] Consult Normal [facility] ECG 12-LEADon 03-14-2025 ECG 12-LEAD IMPRESSION: Atrial flutter IVCD, consider RBBB Probable lateral infarct, age indeterminate Anteroseptal infarct, 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 Electronically Signed On 03-14-2025 15:38:49 EDT by Ryan Magdaleno Normal [facility] LIPID PANELon 03-14-2025 Cholesterol [Mass/Vol] 159 mg/dL Normal <200 [facility] Comment on above: Performed By: #### L AB15, [id number], LAB18 ####Loss Prevention Associate: DOMENICA JARA ([id number])[facility])[address] [place] [address] Cholesterol in HDL [Mass/Vol] 30 mg/dL Low >=60 [facility] Comment on above: Performed By: #### L AB15, [id number], LAB18 ####Loss Prevention Associate: DOMENICA JARA ([id number])[address] Cholesterol.total/Choles terol in HDL [Mass ratio] 5 {ratio} Normal [facility] Comment on above: Result Comment: Ref Range:< 3 Low Risk for CHD3-6 Mod Risk for CHD> 6 High Risk for CHD Performed By: #### L AB15, [id number], LAB18 ####Loss Prevention Associate: DOMENICA JARA ([id number])[facility])[address] [place] [address] LOW DENSITY LIPOPROTEIN 109 mg/dL High 0-<100 [facility] Comment on above: Performed By: #### L AB15, [id number], LAB18 ####Loss Prevention Associate: DOMENICA JARA ([id number])[facility] ([facility])[address] [place] [address] NON-HDL CHOLESTEROL, CALCULATED 129 Normal <130 [facility] Comment on above: Performed By: #### L AB15, [id number], LAB18 ####Loss Prevention Associate: DOMENICA JARA ([id number])[facility] ([facility])[address] [place] [address] Triglyceride [Mass/Vol] 98 mg/dL Normal <150 [facility] Comment on above: Performed By: #### L AB15, [id number], LAB18 ####Loss Prevention Associate: DOMENICA JARA ([id number])[facility] ([facility])[address] [place] [address] VERY LOW DENSITY LIPOPROTEIN, CALCULATED 20 mg/dL Normal <=30 [facility] Comment on above: Performed By: #### L AB15, [id number], LAB18 ####Loss Prevention Associate: DOMENICA JARA ([id number])[facility] [place] [address] Laboratory - Chemistry and C hemistry - challengeon 03-14-2025 Magnesium [Mass/Vol] 2.2 mg/dL 1.6 - 2 .6 mg/dL [facility] Lipid 1996 panelon Cholesterol [Mass/Vol] 159 mg/dL NINF - 200 mg/dL [facility] Cholesterol in HDL [Mass/Vol] 30 mg/dL Low 60 - PINF mg/dL [facility] Cholesterol in LDL [Mass/Vol] 109 mg/dL High 0 - <100 [facility] Cholesterol.total/Choles terol in HDL [Mass ratio] 5 {ratio} [facility] Comment on above: Ref Range: < 3 Low Risk for CHD 3-6 Mod Risk for CHD > 6 High Risk for CHD Interpretation and review of laboratory results Abnormal [facility] NON-HDL CHOLESTEROL, CALCULATED 129 NINF - 130 [facility] Triglyceride [Mass/Vol] 98 mg/dL NINF - 150 mg/dL [facility] VERY LOW DENSITY LIPOPROTEIN, CALCULATED 20 mg/dL NINF - 30 mg/dL [facility] MAGNESIUMon 03-14-2025 Magnesium [Mass/Vol] 2.2 mg/dL Normal 1.6-2.6 [facility] Comment on above: Result Comment: ORDE R COMMENTS:Higher values can be expected in females during menses. Performed By: #### L AB15, [id number], LAB18 ####Loss Prevention Associate: DOMENICA JARA ([id number])[facility] ([facility])[address] [place] [address] Magnesium [Mass/Vol]on 03-14 Interpretation and review of laboratory results Normal [facility] Higher values can be expected in females during menses. [facility] No Panel InformationOrdered By: Ryan Magdaleno on 03-14-2025 P [place] 0 degrees [facility] Work Phone: [place] Interval 0 ms [facility] CenterCon[facility] Work Phone: QRS [place] 146 degrees [facility] CenterCon[facility] Work Phone: QRSD Interval 127 ms [facility] CenterSilver [facility] Work Phone: QT Interval 397 ms [facility] CenterCon[facility] Work Phone: QTC Interval 542 ms [employer] Work Phone: T Wave [place] -57 degrees [employer] Work Phone: [employer] Work Phone: No Panel Informationon 03-14 Atrial flutter IVCD, consider RBBB Probable lateral infarct, age indeterminate Anteroseptal infarct, 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 Electronically Signed On 03-14-2025 15:38:49 EDT by Ryan Yeboah MD - 03/14/2025 IMPRESSION: Atrial flutter IVCD, consider RBBB Probable lateral infarct, age indeterminate Anteroseptal infarct, 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 Electronically Signed On 03-14-2025 15:38:49 EDT by Ryan Magdaleno [facility] Nursing Noteon 03-14-2025 Nursing Note Normal [facility] Progress Noteon 03-14-2025 Progress Note Normal [facility] Progress Note Normal [facility] Progress Note Normal [facility] Vital signsOrdered By: Ryan Magdaleno on 03-14-2025 Heart rate 112 /min bpm [facility] Work Phone: 30on 03-13-2025 30 Normal [facility] BLOOD GAS, VENOUSon 03-13-20 25 AMOUNT OF OXYGEN Normal [facility] Comment on above: Result Comment: ARPAN Kaplan COMMENTS:Assessment of oxygenation is best done with an arterial blood gas determination. Reference ranges for pO2, bicarbonate, and base excess are for mixed venous blood. Specimens drawn from a peripheral vein will often have higher values. Performed By: #### L AB79 ####Loss Prevention Associate: FENG CONSTANTINO ([id number])[facility] ([facility])[address] [place] [address] Base excess Calc (BldV) [Moles/Vol] 2.2 mmol/L Normal -3.0-3.0 [facility] Comment on above: Performed By: #### L AB79 ####Loss Prevention Associate: FENG CONSTANTINO ([id number])[facility] ([facility])[address] [place] [address] CO2 [Moles/Vol] 28.9 mmol/L Normal 23.0-30.0 [facility] Comment on above: Performed By: #### L AB79 ####Loss Prevention Associate: FENG CONSTANTINO ([id number])[facility] ([facility])[address] [place] [address] [place] HCO3 (Bld) [Moles/Vol] 27.5 mmol/L Normal 21.0-30.0 [facility] Comment on above: Performed By: #### L AB79 ####Loss Prevention Associate: FENG CONSTANTINO ([id number])[facility] ([facility])[address] [place] [address] [place] Hemoglobin (Bld) [Mass/Vol] 11.8 g/dL Low Screen only [facility] Comment on above: Performed By: #### L AB79 ####Loss Prevention Associate: FENG CONSTANTINO ([id number])[facility] ([facility])[address] OXYGEN (MM HG) IN VENOUS BLOOD 33.5 mm Hg Normal [facility] Comment on above: Performed By: #### L AB79 ####Loss Prevention Associate: FENG CONSTANTINO ([id number])[facility]ITALMatt [place] ([facility])[address] OXYGEN SATURATION (%) IN VENOUS BLOOD 57.2 % Normal [facility] Comment on above: Performed By: #### L [id number] ####Loss Prevention Associate: FENG CONSTANTINO ([id number])[facility]A [place] ([facility])[address] PCO2, JOHNATHAN 45.6 mm Hg Normal 38.0-56.0 [facility] Comment on above: Performed By: #### L AB79 ####Loss Prevention Associate: FENG CONSTANTINO ([id number])[facility] ([facility])[address] PH VENOUS 7.398 Normal 7.320-7.420 [facility] Comment on above: Performed By: #### L [id number] ####Loss Prevention Associate: FENG CONSTANTINO ([id number])[facility] ([facility])[address] [place] [address] SOURCE OF OXYGEN Nasal Cannula (LPM) Normal [facility] Comment on above: Performed By: #### L [id number] ####Loss Prevention Associate: FENG CONSTANTINO ([id number])[facility] ([facility])[address] [place] [address] CBC W Auto Differential pane l (Bld)Ordered By: Lakisha Paula on 03-13-2025 Basophils (Bld) [#/Vol] 0.1 10*3/uL 0.0 - 0.2 10*3/uL [facility] Basophils/100 WBC (Bld) 0.6 % 0.0 - 2.0 % [facility] Eosinophils (Bld) [#/Vol] 0.2 10*3/uL 0.0 - 0.5 10*3/uL [facility] Eosinophils/100 WBC (Bld) 2 % 0.0 - 6.0 % [facility] Erythrocyte distribution width (RBC) [Ratio] 21.2 % High 11.5 - 15.0 % [facility] Hematocrit (Bld) [Volume fraction] 28.4 % Low 40.0 - 52.0 % [facility] Hemoglobin (Bld) [Mass/Vol] 8.5 g/dL Low 13.0 - 18.0 g/dL [facility] Immature granulocytes (Bld) [#/Vol] 0 10*3/uL NINF - 0.1 10*3/uL [facility] Immature granulocytes/100 WBC (Bld) 0.5 % 0.0 - 2.0 % [facility] Interpretation and review of laboratory results Abnormal [facility] Lymphocytes (Bld) [#/Vol] 1.2 10*3/uL 1.0 - 4.3 10*3/uL [facility] Lymphocytes/100 WBC (Bld) 15.4 % 15.0 - 45.0 % [facility] MCH (RBC) [Entitic mass] 29.7 pg 26. 0 - 34.0 pg [facility] MCHC (RBC) [Mass/Vol] 29.9 % Low 30.5 - 36.0 % [facility] MCV (RBC) [Entitic vol] 99.3 fL High 77.0 - 99.0 fL [facility] Monocytes (Bld) [#/Vol] 1.4 10*3/uL High 0.0 - 0.9 10*3/uL [facility] Monocytes/100 WBC (Bld) 16.9 % High 5.0 - 13.0 % [facility] Neutrophils (Bld) [#/Vol] 5.2 10*3/uL 1.8 - 7.5 10*3/uL [facility] Neutrophils/100 WBC (Bld) 64.6 % 38.0 - 82.0 % [facility] Nucleated RBC/100 WBC (Bld) [Ratio] 0 % [facility] Platelet mean volume (Bld) [Entitic vol] 9.2 fL 9.0 - 12.7 fL [facility] Platelets (Bld) [#/Vol] 392 10*3/uL 140 - 440 10*3/uL [facility] RBC (Bld) [#/Vol] 2.86 10*6/uL Low 4.40 - 5.9 0 10*6/uL [facility] WBC (Bld) [#/Vol] 8 10*3/uL 3.6 - 10.7 10*3/uL [facility] CBC WITH AUTO DIFFERENTIALon 03-13-2025 Basophils (Bld) [#/Vol] 0.1 10*3/uL Normal 0.0-0.2 [facility] Comment on above: Performed By: #### L [id number] ####Loss Prevention Associate: FENG CONSTANTINO ([id number])[facility] [place] ([facility])[address] Basophils/100 WBC (Bld) 0.6 % Normal 0.0-2.0 [facility] Comment on above: Performed By: #### L [id number] ####Loss Prevention Associate: FENG CONSTANTINO ([id number])[facility] [place] ([facility])[address] [place] [address] [place] Eosinophils (Bld) [#/Vol] 0.2 10*3/uL Normal 0.0-0.5 [facility] Comment on above: Performed By: #### L [id number] ####Loss Prevention Associate: FENG CONSTANTINO ([id number])[facility] [place] ([facility])[address] [place] [address] Eosinophils/100 WBC (Bld) 2.0 % Normal 0.0-6.0 [facility] Comment on above: Performed By: #### L [id number] ####Loss Prevention Associate: FENG CONSTANTINO ([id number])[facility] [place] ([facility])[address] Erythrocyte distribution width (RBC) [Ratio] 21.2 % High 11.5-15.0 [facility] Comment on above: Performed By: #### L [id number] ####Loss Prevention Associate: FENG CONSTANTINO ([id number])[facility] [place] ([facility])[address] [place] [address] Hematocrit (Bld) [Volume fraction] 28.4 % Low 40.0-52.0 [facility] Comment on above: Performed By: #### L [id number] ####Loss Prevention Associate: FENG CONSTANTINO ([id number])[facility])[address] [place] [address] Hemoglobin (Bld) [Mass/Vol] 8.5 g/dL Low 13.0-18.0 [facility] Comment on above: Performed By: #### L [id number] ####Loss Prevention Associate: FENG CONSTANTINO ([id number])[facility])[address] IMMATURE GRANS % 0.5 % Normal 0.0-2.0 [facility] Comment on above: Performed By: #### L [id number] ####Loss Prevention Associate: FENG CONSTANTINO ([id number])[facility] ([facility])[address] [place] [address] IMMATURE GRANS ABSOLUTE 0.0 10*3/uL Normal <0.1 [facility] Comment on above: Performed By: #### L [id number] ####Loss Prevention Associate: FENG CONSTANTINO ([id number])[facility] ([facility])[address] [place] [address] Lymphocytes (Bld) [#/Vol] 1.2 10*3/uL Normal 1.0-4.3 [facility] Comment on above: Performed By: #### L [id number] ####Loss Prevention Associate: FENG CONSTANTINO ([id number])[facility])[address] [place] [address] Lymphocytes/100 WBC (Bld) 15.4 % Normal 15.0-45.0 [facility] Comment on above: Performed By: #### L [id number] ####Loss Prevention Associate: FENG CONSTANTINO ([id number])[facility])[address] [place] [address] MCH (RBC) [Entitic mass] 29.7 pg Normal 26.0-34.0 [facility] Comment on above: Performed By: #### L [id number] ####Loss Prevention Associate: FENG CONSTANTINO ([id number])[facility] [place] ([facility])[address] MCHC 29.9 % Low 30.5-36.0 [facility] Comment on above: Performed By: #### L [id number] ####Loss Prevention Associate: FENG VILLAGMOEZALESIA ([id number])[facility] [place] ([facility])[address] MCV (RBC) [Entitic vol] 99.3 fL High 77.0-99.0 [facility] Comment on above: Performed By: #### L [id number] ####Loss Prevention Associate: FENG DOUGIE ([id number])[facility]ITALMatt [place] ([facility])[address] [place] [address] Monocytes (Bld) [#/Vol] 1.4 10*3/uL High 0.0-0.9 [facility] Comment on above: Performed By: #### L [id number] ####Loss Prevention Associate: FENG CONSTANTINO ([id number])[facility] [place] ([facility])[address] Monocytes/100 WBC (Bld) 16.9 % High 5.0-13.0 [facility] Comment on above: Performed By: #### L [id number] ####Loss Prevention Associate: FENG CONSTANTINO ([id number])[facility]ITALMatt [place] ([facility])[address] NEUTROPHILS ABSOLUTE 5.2 10*3/uL Normal 1.8-7.5 [facility] Comment on above: Performed By: #### L [id number] ####Loss Prevention Associate: FENG COLEGEORGE ([id number])[facility] [place] ([facility])[address] [place] [address] Neutrophils/100 WBC (Bld) 64.6 % Normal 38.0-82.0 [facility] Comment on above: Performed By: #### L [id number] ####Loss Prevention Associate: FENG CONSTANTINO ([id number])[facility]OS[facility]ITALMatt [place] ([facility])[address] NRBC 0.0 /100 WBCs Normal 0.0-2.0 [facility] Comment on above: Performed By: #### L [id number] ####Loss Prevention Associate: FENG COLEGEORGE ([id number])[facility]OS[facility]ITALMatt [place] ([facility])[address] Platelet mean volume (Bld) [Entitic vol] 9.2 fL Normal 9.0-12.7 [facility] Comment on above: Performed By: #### L [id number] ####Loss Prevention Associate: FENG COLEGEORGE ([id number])[facility]OS[facility]ITALMatt [facility] ([facility])[address] [place] [address] Platelets (Bld) [#/Vol] 392 10*3/uL Normal 140-440 [facility] Comment on above: Performed By: #### L [id number] ####Loss Prevention Associate: FENG CONSTANTINO ([id number])[facility]OS[facility]ITALMatt [place] ([facility])[address] RBC (Bld) [#/Vol] 2.86 10*6/uL Low 4.40-5.90 [facility] Comment on above: Performed By: #### L [id number] ####Loss Prevention Associate: FENG CONSTANTINO ([id number])[facility]ITALMatt [place] ([facility])[address] WBC (Bld) [#/Vol] 8.0 10*3/uL Normal 3.6-10.7 [facility] Comment on above: Performed By: #### L [id number] ####Loss Prevention Associate: FENG CONSTANTINO ([id number])[facility] HOSPITALMatt [facility] ([facility])[address] COMPREHENSIVE METABOLIC PANE Victor M 03-13-2025 Albumin [Mass/Vol] 1.5 g/dL Low 3.5-5.0 [facility] Comment on above: Performed By: #### L [id number] ####Loss Prevention Associate: FENG CONSTANTINO ([id number])[facility] [place] ([facility])[address] ALP [Catalytic activity/Vol] 122 U/L Normal 40-150 [facility] Comment on above: Performed By: #### L [id number] ####Loss Prevention Associate: FENG CONSTANTINO ([id number])[facility] [place] ([facility])[address] ALT [Catalytic activity/Vol] 7 U/L Normal <40 [facility] Comment on above: Performed By: #### L [id number] ####Loss Prevention Associate: FENG CONSTANTINO ([id number])[facility]A [facility])[address] Anion gap [Moles/Vol] 6 mmol/L Normal 3-13 [facility] Comment on above: Performed By: #### L [id number] ####Loss Prevention Associate: FENG CONSTANTINO ([id number])[facility])[address] AST [Catalytic activity/Vol] 37 U/L High <34 [facility] Comment on above: Performed By: #### L [id number] ####Loss Prevention Associate: FENG CONSTANTINO ([id number])[facility] ([facility])[address] Bilirubin [Mass/Vol] 0.5 mg/dL Normal <1.2 [facility] Comment on above: Performed By: #### L [id number] ####Loss Prevention Associate: FENG CONSTANTINO ([id number])[facility] ([facility])[address] Calcium [Mass/Vol] 7.3 mg/dL Low 8.4-10.2 [facility] Comment on above: Performed By: #### L [id number] ####Loss Prevention Associate: FENG CONSTANTINO ([id number])[facility]ITALMatt [place] ([facility])[address] Chloride [Moles/Vol] 110 mmol/L High 98-107 [facility] Comment on above: Performed By: #### L [id number] ####Loss Prevention Associate: FENG CONSTANTINO ([id number])[facility]ITALMatt [place] ([facility])[address] CO2 [Moles/Vol] 25 mmol/L Normal 22-29 [facility] Comment on above: Performed By: #### L [id number] ####Loss Prevention Associate: FENG CONSTANTINO ([id number])[facility] (HLAB)[address] Creatinine [Mass/Vol] 3.32 mg/dL High 0.72-1.25 [facility] Comment on above: Performed By: #### L [id number] ####Loss Prevention Associate: FENG CONSTANTINO ([id number])[facility]OS[facility]ITALMatt [facility] ([facility])[address] GLOMERULAR FILTRATION RATE ML/MIN/1.73 SQ M.PREDICTED 20.5 mL/min/1.73m*2 Low >60.0 [facility] Comment on above: Result Comment: Calc ulation based on the Chronic Kidney Disease Epidemiology Collaboration (CKD-EPI) equation refit without adjustment for race Performed By: #### L [id number] ####Loss Prevention Associate: FENG CONSTANTINO ([id number])[facility]OS[facility]ITALMatt [place] ([facility])[address] [place] [address] [place] Glucose [Mass/Vol] 71 mg/dL Low 74-100 [facility] Comment on above: Performed By: #### L [id number] ####Loss Prevention Associate: FENG CONSTANTINO ([id number])[facility] ([facility])[address] Potassium [Moles/Vol] 3.5 mmol/L Normal 3.5-5.1 [facility] Comment on above: Result Comment: Plas ma potassium values may be up to 0.5 mmol/L lower than serum values. Performed By: #### L [id number] ####Loss Prevention Associate: FENG DOUGIE ([id number])[facility] ([facility])[address] Protein [Mass/Vol] 5.5 g/dL Low 6.4-8.3 [facility] Comment on above: Performed By: #### L [id number] ####Loss Prevention Associate: FENG DOUGIE ([id number])[facility] ([facility])[address] Sodium [Moles/Vol] 141 mmol/L Normal 136-145 [facility] Comment on above: Performed By: #### L [id number] ####Loss Prevention Associate: FENG DOUGIE ([id number])[facility] ([facility])[address] Urea nitrogen [Mass/Vol] 41 mg/dL High 9-23 [facility] Comment on above: Performed By: #### L [id number] ####Loss Prevention Associate: FENG CONSTANTINO ([id number])[facility] ([facility])[address] CHEST WO IV CONTRASTon CT CHEST WO IV CONTRAST Normal [facility] CT Chest WO contraston 03-13 1. Congestive heart failure with mild interstitial pulmonary edema and small pleural effusions. 2. Mild thoracic lymphadenopathy, most likely reactive. 3. No acute lung consolidation. Multifocal areas of irregular pulmonary fibrosis are unchanged. 4. New ascites, omental edema and nodularity in the upper abdomen. Report Dictated on Electronically Signed By: Bettye Ribera MD Electronically Signed Date/Time: 03/13/2025 12:44 PM [facility] Patient Name: JUN SNYDER : 1965 Exam Date/Time: 03/13/2025 11:06 Procedure: CT CHEST WO IV CONTRAST Ordering Provider: SOLARES ANIS Reason For Exam: Pneumonia, complication suspected, xray done EXAMINATION: CT CHEST WO IV CONTRAST CLINICAL HISTORY: Pneumonia, complication suspected, xray done COMPARISON: 02/20/2025 TECHNIQUE: Contiguous axial images of the chest without contrast were obtained from above the lung apices through the level of the adrenal glands. Dose reduction was employed with automated exposure control. FINDINGS: Cardiovasculature: Cardiomegaly and three-vessel coronary artery calcification. Previous aortic valve replacement. Diffuse aortic atherosclerotic disease. Mediastinum/Pericard ium: No pericardial effusion. Lymph Nodes: Multiple mildly enlarged mediastinal and axillary lymph nodes bilaterally. Pleura: Similar small pleural effusions. Central Airways: Widely patent. Lungs: Multifocal irregular fibrotic opacities in the left lung apex, lateral right upper lobe, lingula, and superior segment right lower lobe are unchanged. There is no acute lung consolidation. Smooth interlobular septal thickening is present bilaterally, most evident in the lung apices. Nodules: No nodules are present that require follow up. Included images of the upper abdomen: New ascites, omental edema and nodularity. Atrophic left kidney. Visualized musculoskeletal structures: No acute fracture or destructive osseous lesion is identified. [facility] [place] RADIOLOGY [facility] Bettye Ribera MD - 03/13/2025 Patient Name: JUN SNYDER : 1965 [facility]#: [id number] Exam Date/Time: 03/13/2025 11:06 Procedure: CT CHEST WO IV CONTRAST Ordering Provider: SOLARES ANIS Reason For Exam: Pneumonia, complication suspected, xray done EXAMINATION: CT CHEST WO IV CONTRAST CLINICAL HISTORY: Pneumonia, complication suspected, xray done COMPARISON: 02/20/2025 TECHNIQUE: Contiguous axial images of the chest without contrast were obtained from above the lung apices through the level of the adrenal glands. Dose reduction was employed with automated exposure control. FINDINGS: Cardiovasculature: Cardiomegaly and three-vessel coronary artery calcification. Previous aortic valve replacement. Diffuse aortic atherosclerotic disease. Mediastinum/Pericard ium: No pericardial effusion. Lymph Nodes: Multiple mildly enlarged mediastinal and axillary lymph nodes bilaterally. Pleura: Similar small pleural effusions. Central Airways: Widely patent. Lungs: Multifocal irregular fibrotic opacities in the left lung apex, lateral right upper lobe, lingula, and superior segment right lower lobe are unchanged. There is no acute lung consolidation. Smooth interlobular septal thickening is present bilaterally, most evident in the lung apices. Nodules: No nodules are present that require follow up. Included images of the upper abdomen: New ascites, omental edema and nodularity. Atrophic left kidney. Visualized musculoskeletal structures: No acute fracture or destructive osseous lesion is identified. IMPRESSION: 1. Congestive heart failure with mild interstitial pulmonary edema and small pleural effusions. 2. Mild thoracic lymphadenopathy, most likely reactive. 3. No acute lung consolidation. Multifocal areas of irregular pulmonary fibrosis are unchanged. 4. New ascites, omental edema and nodularity in the upper abdomen. Report Dictated on Electronically Signed By: Bettye Ribera MD Electronically Signed Date/Time: 03/13/2025 12:44 PM EDT [facility] Radiology Study observation (narrative) [facility] Comprehensive Metabolic Prof ilon 03-13-2025 Bilirubin [Mass/Vol] 0.62 mg/dL Normal 0.00-1.30 [facility] Comment on above: Order Comment: 413.2 Performed By: #### L 9200.0000 #### [facility] [address] [place], [place], [address] Comprehensive metabolic [facility] panelon 03-13-2025 Albumin [Mass/Vol] 1.5 g/dL Low 3.5 - 5.0 g/dL [facility] ALP [Catalytic activity/Vol] 122 U/L 40 - 150 U/L [facility] ALT [Catalytic activity/Vol] 7 U/L NINF - 40 U/L [facility] Anion gap [Moles/Vol] 6 mmol/L 3 - 13 mmol/L [facility] AST [Catalytic activity/Vol] 37 U/L High NINF - 34 U/L [facility] Bilirubin [Mass/Vol] 0.5 mg/dL NINF - 1.2 mg/dL [facility] Calcium [Mass/Vol] 7.3 mg/dL Low 8.4 - 10. 2 mg/dL [facility] Chloride [Moles/Vol] 110 mmol/L High 98 - 10 7 mmol/L [facility] CO2 [Moles/Vol] 25 mmol/L 22 - 29 mmol/L [facility] Creatinine [Mass/Vol] 3.32 mg/dL High 0.72 - 1.25 mg/dL [facility] GFR/1.73 sq M.predicted (S/P/Bld) [Vol rate/Area] 20.5 mL/min Low - PINF [facility] Comment on above: Calculation based on the Chronic Kidney Disease Epidemiology Collaboration (CKD-EPI) equation refit without adjustment for race Glucose [Mass/Vol] 71 mg/dL Low 74 - 100 mg/dL [facility] Interpretation and review of laboratory results Abnormal [facility] Potassium [Moles/Vol] 3.5 mmol/L 3.5 - 5.1 mmol/L [facility] Comment on above: Plasma potassium macey ues may be up to 0.5 mmol/L lower than serum values. Protein [Mass/Vol] 5.5 g/dL Low 6.4 - 8.3 g/dL [facility] Sodium [Moles/Vol] 141 mmol/L 136 - 145 mmol/L [facility] Urea nitrogen [Mass/Vol] 41 mg/dL High 9 - 23 mg/d L [facility] ECG 12-LEADon 03-13-2025 ECG 12-LEAD Normal [facility] ED Nursing Noteon 03-13-2025 ED Nursing Note When this RN came back from lunch Pt was already taken to [facility] by Consuelo Day. RN covering my lunch called report to RN at [facility]. Normal [facility] ED Nursing Note Called report to SWEETIE Linder at 5W. Normal [facility] ED Nursing Note Consuelo Johnson at bedside to transport patient to [facility]. Normal [facility] ED Provider Noteon ED Provider Note Normal [facility] HIGH SENSITIVITY TROPONIN, S ERIAL BASELINEon 03-13-2025 TROPONIN HS SERIAL BASELINE 39 ng/L High <=35 [facility] Comment on above: Result Comment: In i ndividuals presenting with symptoms > 2h, a baseline troponin <= 5 ng/L suggests acutecardiac injury is unlikely and further serial testing is generally not indicated. Performed By: #### L [id number] ####Loss Prevention Associate: FENG CONSTANTINO ([id number])[facility] HOSPITALMatt DO (SBHLAB)[address] HIGH SENSITIVITY TROPONIN, S ERIAL, SECOND TESTon 03-13-2025 2H TROPONIN HS (SERIAL 2ND TROPONIN) 44 ng/L High <=35 [facility] Comment on above: Result Comment: [...] 3rd serial troponin Performed By: #### L [id number], [id number], [id number] ####Loss Prevention Associate: DOMENICA JARA ([id number])[facility] ([facility])[address] [place] [address] HIGH SENSITIVITY TROPONIN, S ERIAL, THIRD TESTon 03-13-2025 4H TROPONIN HS (SERIAL 3RD TROPONIN) 50 ng/L High <=35 [facility] Comment on above: Result Comment: 4h [...] valuerequires further evaluation. Performed By: #### L [id number] ####Loss Prevention Associate: DOMENICA JARA ([id number])[facility] ([facility])[address] [place] [address] Laboratory - Chemistry and C hemistry - challengeon 03-13-2025 TSH Qn 6.88 m[IU]/L High [facility] Laboratory - Chemistry and C hemistry - challengeOrdered By: Miya Ang on 03-13-2025 Base excess Calc (BldV) [Moles/Vol] 2.2 mmol/L -3.0 - 3.0 mmol/L [facility] CO2 (BldV) [Partial pressure] 45.6 mm[Hg] [facility] CO2 [Moles/Vol] 28.9 mmol/L 23.0 - 30.0 mmol/L [facility] HCO3 (Bld) [Moles/Vol] 27.5 mmol/L 21.0 - 30.0 mmol/L [facility] Oxygen (BldV) [Partial pressure] 33.5 mm[Hg] mm Hg [facility] pH (BldV) 7.398 [pH] 7.320 - 7.420 [facility] h Laboratory - Coagulationon 0 03-13-2025 PT Coag (Bld) [Time] 17.7 s High 9.0 - 12.0 s [facility] Laboratory - Hematology and Cell countsOrdered By: Miya Ang on 03-13-2025 Hemoglobin (Bld) [Mass/Vol] 11.8 g/dL Low 13.5 - 17.5 g/dl [facility] Laboratory - Microbiology an d Antimicrobial susceptibilityon 03-13-2025 FLUAV RNA EMMANUEL+probe Ql (Resp) Not detected Not Detected [facility] FLUBV RNA EMMANUEL+probe Ql (Resp) Not detected Not Detected [facility] RSV RNA EMMANUEL+probe Ql (Resp) Not detected Not Detected [facility] SARS-CoV-2 (COVID-19) RNA EMMANUEL+probe Ql (Resp) Not detected Not Detected [facility] alth SARS-CoV-2 (COVID-19) RNA EMMANUEL+probe Ql (Unsp spec) Methodology: real-time, RT-PCR The SARS-CoV-2, Flu A/B, and RSV Combo assay is intended for in vitro diagnostic use under the FDA Emergency Use Authorization (EUA). This test has not been FDA cleared or approved. In compliance with this authorization, please visit www.fda.gov/media/14 2435/download or www.fda.gov/media/ 2436/download to access the applicable information sheets. [facility] NT PRO BNPon 03-13-2025 NT PRO BNP >17738 High <125 [facility] Comment on above: Performed By: #### L [id number], [id number], [id number] ####Loss Prevention Associate: DOMENICA JARA ([id number])[facility] ([address] Natriuretic peptide B [Mass/ Vol]on 03-13-2025 Interpretation and review of laboratory results Abnormal [facility] Natriuretic peptide B (Bld) [Mass/Vol] pg/mL High NINF - 125 pg/mL [facility] No Panel Informationon 03-13 4h Troponin HS (Serial 3rd Troponin) 50 ng/L High NINF - 35 ng/L [facility] Comment on above: 4h troponin (3rd tro ponin) samples collected between 1h 40 min and 2h and 20 min of the 2h troponin collection time can be utilized to interpret delta troponins as per [facility] algorithms. Samples collected outside this timeframe need to be interpreted clinically. Rising or falling troponin delta between 2 15 ng/L as compared to 2h troponin value requires further evaluation. Interpretation and review of laboratory results Abnormal [facility] 2h Troponin HS (Serial 2nd Troponin) 44 ng/L High NINF - 35 ng/L [facility] Comment on above: 2h troponin (2nd tro ponin) samples collected between 1h 40 min and 2h and 20 min of the baseline collection time can be utilized to interpret delta troponins as per [facility] algorithms. Samples collected outside this timeframe need to be interpreted clinically. Rising or falling troponin delta between 2 15 ng/L as compared to baseline value requires a 3rd serial troponin Interpretation and review of laboratory results Abnormal [facility] Interpretation and review of laboratory results Abnormal [facility] Troponin HS Serial Baseline 39 ng/L High NINF - 35 ng/L [facility] Comment on above: In individuals prese nting with symptoms > 2h, a baseline troponin <= 5 ng/L suggests acute cardiac injury is unlikely and further serial testing is generally not indicated. [facility] P [place] 0 degrees [facility] NH Interval 0 ms [facility] QRS [place] 66 degrees [facility] QRSD Interval 113 ms [facility] QT Interval 372 ms [facility] QTC Interval 520 ms [facility] T Wave [place] 228 degrees [facility] Atrial flutter with predominant 2:1 AV block Incomplete right bundle branch block Probable anteroseptal infarct, recent Abnormal T, probable ischemia, widespread Minimal ST elevation, inferior leads Prolonged QT interval Electronically Signed On 03-13-2025 08:47:27 EDT by Keiry Pham MD - 03/13/2025 IMPRESSION: Atrial flutter with predominant 2:1 AV block Incomplete right bundle branch block Probable anteroseptal infarct, recent Abnormal T, probable ischemia, widespread Minimal ST elevation, inferior leads Prolonged QT interval Electronically Signed On 03-13-2025 08:47:27 EDT by Keiry Solares [facility] No Panel InformationOrdered By: Miya Ang on 03-13-2025 Amount Of Oxygen [facility] alth Interpretation and review of laboratory results Abnormal [facility] Source Of Oxygen Nasal Cannula (LPM) [facility] Assessment of oxygenation is best done with an arterial blood gas determination. Reference ranges for pO2, bicarbonate, and base excess are for mixed venous blood. Specimens drawn from a peripheral vein will often have higher values. [facility] Nursing Noteon 03-13-2025 Nursing Note Removed wound vac that patient arrived to 5w from ecf pictures of all wound taken on rover and saved to chart NSWto DSD applied to sacral wound Normal [facility] PROTHROMBIN TIMEon INR Coag (PPP) [Relative time] 1.7 {INR} High 0.9-1.1 [facility] Comment on above: Result Comment: Vaughn [...] Myocardial Infarction Performed By: #### L [id number] ####Loss Prevention Associate: FENG CONSTANTINO ([id number])[facility] ([facility])[address] [place] [address] PT Coag (PPP) [Time] 17.7 s High 9.0-12.0 [facility] Comment on above: Performed By: #### L [id number] ####Loss Prevention Associate: FENG CONSTANTINO ([id number])[facility] ([facility])[address] [place] [address] PT Coag (Bld) [Time]on 03-13 INR Coag (PPP) [Relative time] 1.7 {INR} High 0.9 - 1.1 [facility] Comment on above: Recommended Anticoag ulant Therapy: [...] therapy is used to prevent Myocardial Infarction Interpretation and review of laboratory results Abnormal [facility] SARS-COV-2, FLU A/B, AND RSV COMBOon 03-13-2025 SARS-CoV-2 (COVID-19) RNA EMMANUEL+probe Ql (Unsp spec) Normal [facility] Comment on above: Performed By: #### L [id number] ####Loss Prevention Associate: FENG CONSTANTINO ([id number])[facility] ([facility])[address] [place] [address] SARS-CoV-2, Flu A/B, and RSV Comboon 03-13-2025 Interpretation and review of laboratory results Normal [facility] THYROID STIMULATING HORMONEo n 03-13-2025 THYROID STIMULATING HORMONE 6.88 uIU/mL High 0.35-4.94 [facility] Comment on above: Performed By: #### L [id number], [id number], [id number] ####Loss Prevention Associate: DOMENICA JARA ([id number])[facility] ([address] TSH Qnon 03-13-2025 Interpretation and review of laboratory results Abnormal [facility] Vital signsOrdered By: Delicia Ang on 03-13-2025 Oxygen saturation in Venous blood 57.2 % [facility] Vital signson 03-13-2025 Heart rate 117 /min bpm [facility] XR Chest Single viewon 03-13 1. Limited supine study. 2. Cardiomegaly with probable pulmonary venous congestion. 3. Hyperinflated lungs with chronic, ill-defined opacities in both lungs which are most likely areas of fibrosis. No definite lung consolidation. Report Dictated on Electronically Signed By: Bettye Ribera MD Electronically Signed Date/Time: 03/13/2025 9:18 AM T [facility] 1965 [id number] Exam Date/Time: 03/13/2025 09:06 Procedure: XR CHEST 1 VIEW Ordering Provider: SOLARES ANIS Reason For Exam: shortness of breath, increased cough, ESRD AP CHEST X-RAY CLINICAL INDICATION: shortness of breath, increased cough, ESRD TECHNIQUE: AP portable x-ray of the chest. COMPARISON: 01/24/2025 FINDINGS: Limitations: The study was obtained in supine position which limits evaluation. Heart/Mediastinum: The cardiac silhouette is large. Previous open heart surgery with aortic valve replacement. Lungs: Diffuse vascular redistribution. Ill-defined opacity in the left midlung is chronic and unchanged from prior studies, as is a small nodular opacity in the periphery of the right midlung. The lungs are hyperinflated with basilar pleural thickening bilaterally. Biapical pleural thickening is chronic. Bones: Unremarkable [facility] Bettye Ribera MD - 03/13/2025 [facility] Name: [facility]UN [facility] 1965 [id number] Exam Date/Time: 03/13/2025 09:06 Procedure: XR CHEST 1 VIEW Ordering Provider: SOLARES ANIS Reason For Exam: shortness of breath, increased cough, ESRD AP CHEST X-RAY CLINICAL INDICATION: shortness of breath, increased cough, ESRD TECHNIQUE: AP portable x-ray of the chest. COMPARISON: 01/24/2025 FINDINGS: Limitations: The study was obtained in supine position which limits evaluation. Heart/Mediastinum: The cardiac silhouette is large. Previous open heart surgery with aortic valve replacement. Lungs: Diffuse vascular redistribution. Ill-defined opacity in the left midlung is chronic and unchanged from prior studies, as is a small nodular opacity in the periphery of the right midlung. The lungs are hyperinflated with basilar pleural thickening bilaterally. Biapical pleural thickening is chronic. Bones: Unremarkable IMPRESSION: 1. Limited supine study. 2. Cardiomegaly with probable pulmonary venous congestion. 3. Hyperinflated lungs with chronic, ill-defined opacities in both lungs which are most likely areas of fibrosis. No definite lung consolidation. Report Dictated on Electronically Signed By: Btetye Ribera MD Electronically Signed Date/Time: 03/13/2025 9:18 AM EDT [facility] Radiology Study observation (narrative) [facility] alth XR Chest Single viewOrdered By: Bettye Ribera on 03-13-2025 [facility] [employer] Work Phone: Absolute lymphocyte countOrd ered By: Jayesh Stubbs on 03-12-2025 Lymphocytes Auto (Unsp spec) [#/Vol] 1.12 10*3/uL 0.83-4.51 [facility] Absolute neutrophil countOrd ered By: Jayesh Stubbs on 03-12-2025 Neutrophils (Bld) [#/Vol] 4.3 10*3/uL 2.0-7.7 [facility] Anion gap in Serum or Plasma Ordered By: Jayesh Stubbs on 03-12-2025 Anion gap [Moles/Vol] 13 mmol/L 5-15 [facility] Automated lymphocyte count a s percentage of total leukocytesOrdered By: Jayesh Stubbs on 03-12-2025 Lymphocytes/100 WBC Auto (Unsp spec) 16.9 % Low 19-41 [facility] BUN/creatinine ratioOrdered By: Jayesh Stubbs on 03-12-2025 Urea nitrogen/Creatinine [Mass ratio] 11.8 mg/mg 10-20 [facility] Basophil percentageOrdered B y: Jayesh Stubbs on 03-12-2025 Basophils/100 WBC (Bld) 2.0 % High 0-1 [facility] Bilirubin, totalOrdered By: Jayesh Stubbs on 03-12-2025 Bilirubin [Mass/Vol] 0.62 mg/dL 0.00-1.30 [facility] CBC W/Diff, Automatedon 02-25 Anisocytosis Ql (Bld) 1+ Normal [facility] Comment on above: Order Comment: 413.2 Performed By: #### L 9200.0000 #### [facility] [address] [place], [address] Carbon dioxide, total [Moles /volume] in Central venous bloodOrdered By: Jayesh Stubbs on 03-12-2025 CO2 [Moles/Vol] 27.8 mmol/L 21.0-32.0 [facility] Chloride assayOrdered By: George Dorado on 03-12-2025 Chloride [Moles/Vol] 98 mmol/L 98-108 [facility] Eosinophil percentageOrdered By: Jayesh Stubbs on 03-12-2025 Eosinophils/100 WBC (Bld) 2.3 % 0-5 [facility] Erythrocyte distribution wid th ratioOrdered By: Jayesh Stubbs on 03-12-2025 Erythrocyte distribution width (RBC) [Ratio] 21.6 % High 11.6-14.6 [facility] Erythrocyte distribution wid th standard deviationOrdered By: Jayesh Stubbs on 03-12-2025 Erythrocyte distribution width (RBC) [Ratio] 79.4 fl High 35.1-43.9 [facility] Glomerular filtration rate ( GFR) estimation/1.73 sq m using serum, plasma, or whole bOrdered By: Jayesh Stubbs on 03-12-2025 GFR/1.73 sq M.predicted among non-blacks MDRD (S/P/Bld) [Vol rate/Area] 14 mL/min/{1.73_m2} Low >60 [facility] Comment on above: mL/min/1.73m2 CKD-EP I Creatinine Equation (2020) Hematocrit Auto (Bld) [Volum e fraction]Ordered By: Jayesh Stubbs on 03-12-2025 Hematocrit (Bld) [Volume fraction] 28.7 % Low 40-54 [facility] Hemoglobin measurementOrdere d By: Jayesh Stubbs on 03-12-2025 Hemoglobin (Bld) [Mass/Vol] 8.7 g/dL Low 13.0-16.5 [facility] Immature granulocytes/100 WB C Auto (Bld)Ordered By: Jayesh Stubbs on 03-12-2025 Immature granulocytes/100 WBC (Bld) 0.300 % 0.0-0.9 [facility] Comment on above: IG% - Immature Granu locytes (promyelocytes, myelocytes and metamyelocytes) > 1% indicates that a LEFT SHIFT is Present. International normalized rat io (INR) calculationOrdered By: Jayesh Stubbs on 03-12-2025 INR Coag (Bld) [Relative time] 1.9 {INR} [facility] - Chemistry and C hemistry - challengeOrdered By: Jayesh Stubbs on 03-12-2025 AST [Catalytic activity/Vol] 47 U/L High <38 [facility] - Hematology and Cell countsOrdered By: Jayesh Stubbs on 03-12-2025 Anisocytosis Ql (Bld) 1+ [facility] MCV (mean corpuscular volume ) determinationOrdered By: Jayesh Stubbs on 03-12-2025 MCV (RBC) [Entitic vol] 100.3 fL High 80-94 [facility] Mean corpuscular hemoglobin (MCH) determinationOrdered By: Jayesh Stubbs on 03-12-2025 MCH (RBC) [Entitic mass] 30.4 pg 27.0-32.0 [facility] Mean corpuscular hemoglobin concentration (MCHC) determinationOrdered By: Jayesh Stubbs on 03-12-2025 MCHC (RBC) [Mass/Vol] 30.3 g/dL Low 32-36 [facility] Mean platelet volume determi nationOrdered By: Jayesh Stubbs on 03-12-2025 Platelet mean volume (Bld) [Entitic vol] 9.5 fL 6.2-12.0 [facility] Monocyte percentageOrdered B y: Jayesh Stubbs on 03-12-2025 Monocytes/100 WBC (Bld) 14.2 % High 0-10 [facility] Neutrophil percentageOrdered By: Jayesh Stubbs on 03-12-2025 Neutrophils/100 WBC (Bld) 64.3 % 47-70 [facility] Nucleated red blood cell per centageOrdered By: aJyesh Stubbs on 03-12-2025 Nucleated RBC/100 WBC (Bld) [Ratio] 0.3 % 0-5 [facility] Platelet countOrdered By: George Dorado on 03-12-2025 Platelets (Bld) [#/Vol] 404 10*3/uL 150-450 [facility] Potassium measurement (mass/ volume)Ordered By: Jayesh Stubbs on 03-12-2025 Potassium (Unsp spec) [Mass/Vol] 4.1 mmol/L 3.3-5.1 [facility] Prothrombin Time w/INRon INR Coag (PPP) [Relative time] 1.9 {INR} Normal [facility] Comment on above: Order Comment: 413.2 Performed By: #### L 9200.0000 #### [facility] [address] [place], [place], [id number] PT Coag (PPP) [Time] 22.4 s High 11.7-14.9 [facility] Comment on above: Order Comment: 413.2 Performed By: #### L 9200.0000 #### [facility] [address] [place], [place], [id number] Prothrombin timeOrdered By: Jayesh Stubbs on 03-12-2025 PT Coag (PPP) [Time] 22.4 s High 11.7-14.9 [facility] RBC Auto (Bld) [#/Vol]Ordere d By: Jayesh Stubbs on 03-12-2025 RBC (Bld) [#/Vol] 2.86 10*6/uL Low 4.6-6.2 [facility] Serum creatinine measurement (mass/volume)Ordered By: Jayesh Stubbs on 03-12-2025 Creatinine [Mass/Vol] 4.67 mg/dL High 0.70-1.20 [facility] Serum globulin measurementOr dered By: Jayesh Stubbs on 03-12-2025 Globulin (S) [Mass/Vol] 4.1 g/dL 2.2-4.2 [facility] Serum glucose measurement (m ass/volume)Ordered By: Jayesh Stubbs on 03-12-2025 Glucose [Mass/Vol] 102 mg/dL High 70-99 [facility] Serum or plasma alanine mayorga otransferase (ALT) measurementOrdered By: Jayesh Stubbs on 03-12-2025 ALT [Catalytic activity/Vol] 20 U/L <47 [place] Serum or plasma albumin audrey urement (mass/volume)Ordered By: Jayesh Stubbs on 03-12-2025 Albumin [Mass/Vol] 3.0 g/dL Low 3.5-5.0 [facility] Serum or plasma albumin/glob ulin mass ratioOrdered By: Jayesh Stubbs on 03-12-2025 Albumin/Globulin [Mass ratio] 0.7 {ratio} Low 0.9-2.4 [facility] Serum or plasma alkaline jacob sphatase measurementOrdered By: Jayesh Stubbs on 03-12-2025 ALP [Catalytic activity/Vol] 171 U/L High 40-129 [facility] Serum or plasma calcium audrey urement (mass/volume)Ordered By: Jayesh Stubbs on 03-12-2025 Calcium [Mass/Vol] 9.9 mg/dL 7.6-11.0 [facility] Serum or plasma urea nitroge n measurement (mass/volume)Ordered By: Jayesh Stubbs on 03-12-2025 Urea nitrogen [Mass/Vol] 55 mg/dL High 4-19 [facility] Sodium levelOrdered By: George Stubbs on 03-12-2025 Sodium [Moles/Vol] 139 mmol/L 133-145 [facility] Total proteinOrdered By: Sonia Stubbs on 03-12-2025 Protein [Mass/Vol] 7.1 g/dL 5.9-8.4 [facility] White blood cell (WBC) count Ordered By: Jayesh Stubbs on 03-12-2025 WBC (Bld) [#/Vol] 6.6 10*3/uL 4.4-11.0 [facility] Potassiumon 03-09-2025 Potassium [Moles/Vol] 4.1 mmol/L Normal 3.3-5.1 [facility] Comment on above: Order Comment: 413-2 Performed By: #### L 9200.0000 #### [facility] [address] [place], [address] Potassium measurement (mass/ volume)Ordered By: Jayesh Stubbs on 03-09-2025 Potassium (Unsp spec) [Mass/Vol] 4.1 mmol/L 3.3-5.1 [place] 36on 03-08-2025 36 2nd attempt called and spoke to the Alyssa the Nurse for the patient at the facility he lives at. She states Sabino is the person who schedules the appointments and she is on vacation and wont be back till next Wednesday. I will try again next wednesday [facility] Progress Noteon 03-08-2025 Progress Note [facility] 36on 03-06-2025 36 Pt DC to [facility] [id number] 03-05-2025 [id number] [facility] [id number] Auth is now pending with [facility] for [facility]. Auth ID: [id number] . The insurance needs PT and OT notes- as PT note yesterday incomplete , they are both requested . [facility] [id number] [facility] [phone] Discharge med list transmitted to [facility] via [facility] per TCC request. [facility] [id number] [facility] [id number] [facility] APTTon 03-05-2025 aPTT Coag (Bld) [Time] 37.6 s High 20.0-30.5 [facility] Comment on above: Result Comment: ARPAN Kaplan COMMENTS:NOTE: The therapeutic time for Heparin anticoagulation, based on Xa activity inhibition, is an APTT of 46-80 seconds. Performed By: #### L AB325, [id number] ####Loss Prevention Associate: DOMENICA JARA ([id number])[facility] ([facility])[address] [place] [address] BASIC METABOLIC PANELon Anion gap [Moles/Vol] 8 mmol/L Normal 3-13 [facility] Comment on above: Performed By: #### L AB15 ####Loss Prevention Associate: DOMENICA JARA ([id number])[facility] ([facility])[address] [place] [address] Calcium [Mass/Vol] 9.7 mg/dL Normal 8.4-10.2 [facility] Comment on above: Performed By: #### L AB15 ####Loss Prevention Associate: DOMENICA JARA ([id number])[facility] [place] [address] Chloride [Moles/Vol] 102 mmol/L Normal 98-107 [facility] Comment on above: Performed By: #### L AB15 ####Loss Prevention Associate: DOMENICA JARA ([id number])[facility] [place] [address] CO2 [Moles/Vol] 26 mmol/L Normal 22-29 [facility] Comment on above: Performed By: #### L AB15 ####Loss Prevention Associate: DOMENICA JARA ([id number])[facility] [place] [address] Creatinine [Mass/Vol] 3.10 mg/dL High 0.72-1.25 [facility] Comment on above: Performed By: #### L AB15 ####Loss Prevention Associate: DOMENICA JARA ([id number])[facility] ([facility])[address] [place] [address] GLOMERULAR FILTRATION RATE ML/MIN/1.73 SQ M.PREDICTED 22.3 mL/min/1.73m*2 Low >60.0 [facility] Comment on above: Result Comment: Calc ulation based on the Chronic Kidney Disease Epidemiology Collaboration (CKD-EPI) equation refit without adjustment for race Performed By: #### L AB15 ####Loss Prevention Associate: DOMENICA JARA ([id number])[facility] ([facility] [place] [address] [place] Glucose [Mass/Vol] 68 mg/dL Low 74-100 [facility] Comment on above: Performed By: #### L AB15 ####Loss Prevention Associate: DOMENICA JARA ([id number])[facility] ([facility] [place] [address] [place] Potassium [Moles/Vol] 5.9 mmol/L High 3.5-5.1 [facility] Comment on above: Result Comment: [facility] potassium values may be up to 0.5 mmol/L lower than serum values. Performed By: #### L AB15 ####Loss Prevention Associate: DOMENICA JARA ([id number])[facility] ([facility])[address] [place] [address] Sodium [Moles/Vol] 136 mmol/L Normal 136-145 [facility] Comment on above: Performed By: #### L AB15 ####Loss Prevention Associate: DOMENICA JARA ([id number])[facility] ([facility])[address] [place] [address] Urea nitrogen [Mass/Vol] 27 mg/dL High 9-23 [facility] Comment on above: Performed By: #### L AB15 ####Loss Prevention Associate: DOMENICA JARA ([id number])[facility] ([facility])[address] [place] [address] Anion gap [Moles/Vol] 9 mmol/L Normal 3-13 [facility] Comment on above: Performed By: #### L AB15 ####Loss Prevention Associate: DOMENICA JARA ([id number])[facility] ([facility])[address] [place] [address] Calcium [Mass/Vol] 9.7 mg/dL Normal 8.4-10.2 [facility] Comment on above: Performed By: #### L AB15 ####Loss Prevention Associate: DOMENICA JARA ([id number])[facility] ([facility])[address] [place] [address] Chloride [Moles/Vol] 102 mmol/L Normal 98-107 [facility] Comment on above: Performed By: #### L AB15 ####Loss Prevention Associate: DOMENICA JARA ([id number])[facility] ([facility])[address] [place] [address] CO2 [Moles/Vol] 25 mmol/L Normal 22-29 [facility] Comment on above: Performed By: #### L AB15 ####Loss Prevention Associate: DOMENICA [id number])[facility] ([facility])[address] [place] [address] Creatinine [Mass/Vol] 3.03 mg/dL High 0.72-1.25 [facility] Comment on above: Performed By: #### L AB15 ####Loss Prevention Associate: DOMENICA JARA ([id number])[facility] ([facility])[address] [place] [address] [place] GLOMERULAR FILTRATION RATE ML/MIN/1.73 SQ M.PREDICTED 22.9 mL/min/1.73m*2 Low >60.0 [facility] Comment on above: Result Comment: Calc ulation based on the Chronic Kidney Disease Epidemiology Collaboration (CKD-EPI) equation refit without adjustment for race Performed By: #### L AB15 ####Loss Prevention Associate: DOMENICA JARA ([id number])[facility] ([facility])[address] [place] [address] Glucose [Mass/Vol] 77 mg/dL Normal 74-100 [facility] Comment on above: Performed By: #### L AB15 ####Loss Prevention Associate: DOMENICA JARA ([id number])[facility])[address] [place] [address] [place] Potassium [Moles/Vol] 6.6 mmol/L Critically high 3.5-5.1 [facility] Comment on above: Result Comment: [facility] potassium values may be up to 0.5 mmol/L lower than serum values. Performed By: #### L AB15 ####Loss Prevention Associate: DOMENICA JARA ([id number])[facility] ([facility])[address] [place] [address] [place] Sodium [Moles/Vol] 136 mmol/L Normal 136-145 [facility] Comment on above: Performed By: #### L AB15 ####Loss Prevention Associate: DOMENICA JARA ([id number])[facility])[address] [place] [address] [place] Urea nitrogen [Mass/Vol] 26 mg/dL High 9-23 [facility] Comment on above: Performed By: #### L AB15 ####Loss Prevention Associate: DOMENICA JARA ([id number])[facility] ([address] Basic metabolic 1998 panelon 03-05-2025 Anion gap [Moles/Vol] 8 mmol/L 3 - 13 mmol/L [facility] Calcium [Mass/Vol] 9.7 mg/dL 8.4 - 10. 2 mg/dL [facility] Chloride [Moles/Vol] 102 mmol/L 98 - 10 7 mmol/L [facility] CO2 [Moles/Vol] 26 mmol/L 22 - 29 mmol/L [facility] Creatinine [Mass/Vol] 3.1 mg/dL High 0.72 - 1.25 mg/dL [facility] GFR/1.73 sq M.predicted (S/P/Bld) [Vol rate/Area] 22.3 mL/min Low - PINF [facility] Glucose [Mass/Vol] 68 mg/dL Low 74 - 100 mg/dL [facility] Interpretation and review of laboratory results Abnormal [facility] Potassium [Moles/Vol] 5.9 mmol/L High 3.5 - 5.1 mmol/L [facility] Sodium [Moles/Vol] 136 mmol/L 136 - 145 mmol/L [facility] Urea nitrogen [Mass/Vol] 27 mg/dL High 9 - 23 mg/d L [facility] Anion gap [Moles/Vol] 9 mmol/L 3 - 13 mmol/L [facility] Calcium [Mass/Vol] 9.7 mg/dL 8.4 - 10. 2 mg/dL [facility] Chloride [Moles/Vol] 102 mmol/L 98 - 10 7 mmol/L [facility] CO2 [Moles/Vol] 25 mmol/L 22 - 29 mmol/L [facility] Creatinine [Mass/Vol] 3.03 mg/dL High 0.72 - 1.25 mg/dL [facility] GFR/1.73 sq M.predicted (S/P/Bld) [Vol rate/Area] 22.9 mL/min Low - PINF [facility] Glucose [Mass/Vol] 77 mg/dL 74 - 100 mg/dL [facility] Interpretation and review of laboratory results Abnormal [facility] Potassium [Moles/Vol] 6.6 mmol/L Critically high 3.5 - 5.1 mmol/L [facility] Sodium [Moles/Vol] 136 mmol/L 136 - 145 mmol/L [facility] Urea nitrogen [Mass/Vol] 26 mg/dL High 9 - 23 mg/d L [facility] CBC (HEMOGRAM)on 03-05-2025 Erythrocyte distribution width (RBC) [Ratio] 21.6 % High 11.5-15.0 [facility] Comment on above: Performed By: #### L AB294 ####Loss Prevention Associate: DOMENICA JARA ([id number])[facility])[address] [place] [address] Hematocrit (Bld) [Volume fraction] 25.7 % Low 40.0-52.0 [facility] Comment on above: Performed By: #### L AB294 ####Loss Prevention Associate: DOMENICA JARA ([id number])[address] Hemoglobin (Bld) [Mass/Vol] 7.7 g/dL Low 13.0-18.0 [facility] Comment on above: Performed By: #### L AB294 ####Loss Prevention Associate: DOMENICA JARA ([id number])[address] MCH (RBC) [Entitic mass] 29.7 pg Normal 26.0-34.0 [facility] Comment on above: Performed By: #### L AB294 ####Loss Prevention Associate: DOMENICA JARA ([id number])[address] MCHC 30.0 % Low 30.5-36.0 [facility] Comment on above: Performed By: #### L AB294 ####Loss Prevention Associate: DOMENICA JARA ([id number])[address] MCV (RBC) [Entitic vol] 99.2 fL High 77.0-99.0 [facility] Comment on above: Performed By: #### L AB294 ####Loss Prevention Associate: DOMENICA JARA ([id number])[facility] ([facility])[address] [place] [address] Platelet mean volume (Bld) [Entitic vol] 9.1 fL Normal 9.0-12.7 [facility] Comment on above: Performed By: #### L AB294 ####Loss Prevention Associate: DOMENICA JARA ([id number])[facility] ([facility])[address] [place] [address] [place] Platelets (Bld) [#/Vol] 303 10*3/uL Normal 140-440 [facility] Comment on above: Performed By: #### L AB294 ####Loss Prevention Associate: DOMENICA JARA ([id number])[facility])[address] [place] [address] RBC (Bld) [#/Vol] 2.59 10*6/uL Low 4.40-5.90 [facility] Comment on above: Performed By: #### L AB294 ####Loss Prevention Associate: DOMENICA JARA ([id number])[facility] ([facility])[address] [place] [address] WBC (Bld) [#/Vol] 9.1 10*3/uL Normal 3.6-10.7 [facility] Comment on above: Performed By: #### L AB294 ####Loss Prevention Associate: DOMENICA JARA ([id number])[facility])[address] [place] [address] CBC W/Diff, Automatedon 06-0 Absolute Neut Normal 2.0-7.7 [place] Comment on above: Order Comment: 413-2 Result Comment: [facility] Performed By: #### L 100.0100, L300.3900, L500.4050 #### [facility] [address] [place], [address] HCT Normal 40-54 [place] Comment on above: Order Comment: 413-2 Result Comment: [facility] Performed By: #### L 100.0100, L300.3900, [id number] #### [place] [facility] [address] [place], [address] HGB Normal 13.0-16.5 [place] Comment on above: Order Comment: 413-2 Result Comment: [facility] Performed By: #### L 100.0100, L300.3900, [id number] #### [place] [facility] [address] [place], [address] MCH Normal 27.0-32.0 [place] Comment on above: Order Comment: 413-2 Result Comment: [facility] Performed By: #### L 100.0100, L300.3900, [id number] #### [facility] [address] [place], [address] MCHC Normal 32-36 [place] Comment on above: Order Comment: 413-2 Result Comment: [facility] Performed By: #### L 100.0100, L300.3900, [id number] #### [place] [facility] [address] [place], [address] MCV Normal 80-94 [place] Comment on above: Order Comment: 413-2 Result Comment: [facility] Performed By: #### L 100.0100, L300.3900, [id number] #### [place] [facility] [address] [place], [address] NEUT% Normal 47-70 [place] Comment on above: Order Comment: 413-2 Result Comment: [facility] Performed By: #### L 100.0100, L300.3900, [id number] #### [facility] [facility] [address] [place], [address] PLT Normal 150-450 [place] Comment on above: Order Comment: 413-2 Result Comment: [facility] Performed By: #### L 100.0100, L300.3900, [id number] #### [place] [facility] [address] [place], [address] RBC Normal 4.6-6.2 [place] Comment on above: Order Comment: 413-2 Result Comment: [facility] Performed By: #### L 100.0100, L300.3900, [id number] #### [place] [facility] [address] [place], [address] RDW CV Normal 11.6-14.6 [place] Comment on above: Order Comment: 413-2 Result Comment: [facility] Performed By: #### L 100.0100, L300.3900, [id number] #### [place] [facility] [address] [place], [address] RDW SD Normal 35.1-43.9 [place] Comment on above: Order Comment: 413-2 Result Comment: [facility] Performed By: #### L 100.0100, L300.3900, [id number] #### [facility] [facility] [address] [place], [address] WBC Normal 4.4-11.0 [place] Comment on above: Order Comment: 413-2 Result Comment: [facility] Performed By: #### L 100.0100, L300.3900, L500.4050 #### [facility] [address] [place], [address] CBC panel Auto (Bld)on 03-05 Erythrocyte distribution width (RBC) [Ratio] 21.6 % High 11.5 - 15.0 % [facility] Hematocrit (Bld) [Volume fraction] 25.7 % Low 40.0 - 52.0 % [facility] Hemoglobin (Bld) [Mass/Vol] 7.7 g/dL Low 13.0 - 18.0 g/dL [facility] Interpretation and review of laboratory results Abnormal [facility] MCH (RBC) [Entitic mass] 29.7 pg 26. 0 - 34.0 pg [facility] MCHC (RBC) [Mass/Vol] 30 % Low 30.5 - 36.0 % [facility] MCV (RBC) [Entitic vol] 99.2 fL High 77.0 - 99.0 fL [facility] Platelet mean volume (Bld) [Entitic vol] 9.1 fL 9.0 - 12.7 fL [facility] Platelets (Bld) [#/Vol] 303 10*3/uL 140 - 440 10*3/uL [facility] RBC (Bld) [#/Vol] 2.59 10*6/uL Low 4.40 - 5.9 0 10*6/uL [facility] WBC (Bld) [#/Vol] 9.1 10*3/uL 3.6 - 10.7 10*3/uL [facility] Comprehensive Metabolic Prof ilon 03-05-2025 ALB Normal 3.5-5.0 [place] Comment on above: Order Comment: 413-2 Result Comment: [facility] Performed By: #### L 100.0100, L300.3900, L500.4050 #### [place] [facility] [address] [place], [address] ALK PHOS Normal 40-129 [place] Comment on above: Order Comment: 413-2 Result Comment: [facility] Performed By: #### L 100.0100, L300.3900, L500.4050 #### [facility] [address] [place], [address] ALT Normal <=46 [place] Comment on above: Order Comment: 413-2 Result Comment: [facility] Performed By: #### L 100.0100, L300.3900, [id number] #### [facility] [address] [place], [address] AST Normal <=37 [place] Comment on above: Order Comment: 413-2 Result Comment: [facility] Performed By: #### L 100.0100, L300.3900, [id number] #### [facility] [address] [place], [address] BUN Normal 4-19 [place] Comment on above: Order Comment: 413-2 Result Comment: [facility] Performed By: #### L 100.0100, L300.3900, [id number] #### [facility] [address] [place], [address] BUN/CRE Normal 10-20 [place] Comment on above: Order Comment: 413-2 Result Comment: [facility] Performed By: #### L 100.0100, L300.3900, [id number] #### [facility] [address] [place], [address] Calcium Normal 7.6-11.0 [place] Comment on above: Order Comment: 413-2 Result Comment: [facility] Performed By: #### L 100.0100, L300.3900, [id number] #### [facility] [address] [place], [address] CL Normal 98-108 [place] Comment on above: Order Comment: 413-2 Result Comment: [facility] Performed By: #### L 100.0100, L300.3900, L500.4050 #### [facility] [address] [place], [address] CO2 Normal 21.0-32.0 [place] Comment on above: Order Comment: 413-2 Result Comment: [facility] Performed By: #### L 100.0100, L300.3900, L500.4050 #### [facility] [address] [place], [address] CREAT,SERUM Normal 0.70-1.20 [place] Comment on above: Order Comment: 413-2 Result Comment: [facility] Performed By: #### L 100.0100, L300.3900, L500.4050 #### [facility] [address] [place], [address] eGFR Normal >60 [place] Comment on above: Order Comment: 413-2 Result Comment: [facility] Performed By: #### L 100.0100, L300.3900, L500.4050 #### [facility] [address] [place], [address] GAP Normal 5-15 [place] Comment on above: Order Comment: 413-2 Result Comment: [facility] Performed By: #### L 100.0100, L300.3900, [id number] #### [facility] [address] [place], [address] GLU Normal 70-99 [place] Comment on above: Order Comment: 413-2 Result Comment: [facility] Performed By: #### L 100.0100, L300.3900, L500.4050 #### [facility] [address] [place], [address] Potassium Normal 3.3-5.1 [place] Comment on above: Order Comment: 413-2 Result Comment: [facility] Performed By: #### L 100.0100, L300.3900, L500.4050 #### [facility] [address] [place], [address] T BILI Normal 0.00-1.30 [place] Comment on above: Order Comment: 413-2 Result Comment: [facility] Performed By: #### L 100.0100, L300.3900, L500.4050 #### [facility] [address] [place], [address] T PROT Normal 5.9-8.4 [place] Comment on above: Order Comment: 413-2 Result Comment: [facility] Performed By: #### L 100.0100, L300.3900, L500.4050 #### [facility] [address] [place], [address] Comprehensive Metabolic Profil Normal 133-145 [place] Comment on above: Order Comment: 413-2 Result Comment: [facility] Performed By: #### L 100.0100, L300.3900, L500.4050 #### [facility] [address] [place], [address] Laboratory - Chemistry and C hemistry - challengeon 03-05-2025 Glucose [Mass/Vol] 142 mg/dL High 70 - 100 mg/dL [facility] Glucose [Mass/Vol] 83 mg/dL 70 - 100 mg/dL [facility] Laboratory - Coagulationon 0 03-05-2025 PT Coag (Bld) [Time] 18.6 s High 9.0 - 12.0 s [facility] No Panel Informationon 03-05 Interpretation and review of laboratory results Abnormal [facility] Interpretation and review of laboratory results Normal [facility] Interpretation and review of laboratory results Abnormal [facility] PROTHROMBIN TIMEon INR Coag (PPP) [Relative time] 1.8 {INR} High 0.9-1.1 [facility] Comment on above: Result Comment: [place]n [...] Myocardial Infarction Performed By: #### L AB325, [id number] ####Loss Prevention Associate: DOMENICA JARA ([id number])[facility] ([address] PT Coag (PPP) [Time] 18.6 s High 9.0-12.0 [facility] Comment on above: Performed By: #### L AB325, [id number] ####Loss Prevention Associate: DOMENICA JARA ([id number])[facility] ([address] PT Coag (Bld) [Time]on 03-05 INR Coag (PPP) [Relative time] 1.8 {INR} High 0.9 - 1.1 [facility] Progress Noteon 03-05-2025 Progress Note Normal [facility] Progress Note Normal [facility] Progress Note Normal [facility] Note [facility] Progress Note Normal [facility] Progress Note Normal [facility] Prothrombin Time w/INRon INR Normal [place] Comment on above: Order Comment: 413-2 Result Comment: [facility] Performed By: #### L 100.0100, L300.3900, L500.4050 #### [facility] [address] [place], [address] PROTIME Normal 11.7-14.9 [place] Comment on above: Order Comment: 413-2 Result Comment: [facility] Performed By: #### L 100.0100, L300.3900, L500.4050 #### [facility] [address] [place], [address] aPTT Coag (Bld) [Time]on aPTT Coag (PPP) [Time] 37.6 s High 20.0 - 30.5 s [facility] 30on 03-04-2025 30 Normal [facility] [id number] 03-04-2025 [id number] Normal [facility] APTTon 03-04-2025 aPTT Coag (Bld) [Time] 52.2 s High 20.0-30.5 [facility] Comment on above: Result Comment: ARPAN R COMMENTS:NOTE: The therapeutic time for Heparin anticoagulation, based on Xa activity inhibition, is an APTT of 46-80 seconds. Performed By: #### L AB325, [id number] ####Loss Prevention Associate: DOMENICA JARA ([id number])[facility] ([facility])[address] [place] [address] BASIC METABOLIC PANELon 06-0 Anion gap [Moles/Vol] 11 mmol/L Normal 3-13 [facility] Comment on above: Performed By: #### L AB15 ####Loss Prevention Associate: DOMENICA JARA ([id number])[facility] ([facility])[address] [place] [address] Calcium [Mass/Vol] 9.4 mg/dL Normal 8.4-10.2 [facility] Comment on above: Performed By: #### L AB15 ####Loss Prevention Associate: DOMENICA JARA ([id number])[facility] ([facility])[address] [place] [address] Chloride [Moles/Vol] 103 mmol/L Normal 98-107 [facility] Comment on above: Performed By: #### L AB15 ####Loss Prevention Associate: DOMENICA JARA ([id number])[facility] [place] [address] CO2 [Moles/Vol] 27 mmol/L Normal 22-29 [facility] Comment on above: Performed By: #### L AB15 ####Loss Prevention Associate: DOMENICA JARA ([id number])[facility] ([facility])[address] [place] [address] Creatinine [Mass/Vol] 2.41 mg/dL High 0.72-1.25 [facility] Comment on above: Performed By: #### L AB15 ####Loss Prevention Associate: DOMENICA JARA ([id number])[facility] ([facility])[address] [place] [address] [place] GLOMERULAR FILTRATION RATE ML/MIN/1.73 SQ M.PREDICTED 30.2 mL/min/1.73m*2 Low >60.0 [facility] Comment on above: Result Comment: Calc ulation based on the Chronic Kidney Disease Epidemiology Collaboration (CKD-EPI) equation refit without adjustment for race Performed By: #### L AB15 ####Loss Prevention Associate: DOMENICA JARA ([id number])[facility] ([facility])[address] [place] [address] Glucose [Mass/Vol] 99 mg/dL Normal 74-100 [facility] Comment on above: Performed By: #### L AB15 ####Loss Prevention Associate: DOMENICA JARA ([id number])[facility] ([facility])[address] [place] [address] Potassium [Moles/Vol] 5.1 mmol/L Normal 3.5-5.1 [facility] Comment on above: Result Comment: [facility] potassium values may be up to 0.5 mmol/L lower than serum values. Performed By: #### L AB15 ####Loss Prevention Associate: DOMENICA JARA ([id number])[facility] ([facility])[address] [place] [address] Sodium [Moles/Vol] 141 mmol/L Normal 136-145 [facility] Comment on above: Performed By: #### L AB15 ####Loss Prevention Associate: DOMENICA JARA ([id number])[facility] ([facility])[address] [place] [address] Urea nitrogen [Mass/Vol] 18 mg/dL Normal 9-23 [facility] Comment on above: Performed By: #### L AB15 ####Loss Prevention Associate: DOMENICA JARA ([id number])[facility] ([facility])[address] [place] [address] Basic metabolic 1998 panelon 03-04-2025 Anion gap [Moles/Vol] 11 mmol/L 3 - 13 mmol/L [facility] Calcium [Mass/Vol] 9.4 mg/dL 8.4 - 10. 2 mg/dL [facility] Chloride [Moles/Vol] 103 mmol/L 98 - 10 7 mmol/L [facility] CO2 [Moles/Vol] 27 mmol/L 22 - 29 mmol/L [facility] Creatinine [Mass/Vol] 2.41 mg/dL High 0.72 - 1.25 mg/dL [facility] GFR/1.73 sq M.predicted (S/P/Bld) [Vol rate/Area] 30.2 mL/min Low - PINF [facility] Glucose [Mass/Vol] 99 mg/dL 74 - 100 mg/dL [facility] Interpretation and review of laboratory results Abnormal [facility] Potassium [Moles/Vol] 5.1 mmol/L 3.5 - 5.1 mmol/L [facility] Sodium [Moles/Vol] 141 mmol/L 136 - 145 mmol/L [facility] Urea nitrogen [Mass/Vol] 18 mg/dL 9 - 23 mg/d L [facility] CBC (HEMOGRAM)on 03-04-2025 Erythrocyte distribution width (RBC) [Ratio] 21.4 % High 11.5-15.0 [facility] Comment on above: Performed By: #### L [id number] ####Loss Prevention Associate: DOMENICA JARA ([id number])[address] Hematocrit (Bld) [Volume fraction] 25.9 % Low 40.0-52.0 [facility] Comment on above: Performed By: #### L [id number] ####Loss Prevention Associate: DOMENICA JARA ([id number])[address] Hemoglobin (Bld) [Mass/Vol] 7.7 g/dL Low 13.0-18.0 [facility] Comment on above: Performed By: #### L [id number] ####Loss Prevention Associate: DOMENICA JARA ([id number])[facility])[address] [place] [address] MCH (RBC) [Entitic mass] 29.3 pg Normal 26.0-34.0 [facility] Comment on above: Performed By: #### L [id number] ####Loss Prevention Associate: DOMENICA JARA ([id number])[address] MCHC 29.7 % Low 30.5-36.0 [facility] Comment on above: Performed By: #### L [id number] ####Loss Prevention Associate: DOMENICA JARA ([id number])[facility])[address] [place] [address] MCV (RBC) [Entitic vol] 98.5 fL Normal 77.0-99.0 [facility] Comment on above: Performed By: #### L [id number] ####Loss Prevention Associate: DOMENICA JARA ([id number])[facility])[address] [place] [address] Platelet mean volume (Bld) [Entitic vol] 9.3 fL Normal 9.0-12.7 [facility] Comment on above: Performed By: #### L [id number] ####Loss Prevention Associate: DOMENICA JARA ([id number])[facility])[address] [place] [address] Platelets (Bld) [#/Vol] 324 10*3/uL Normal 140-440 [facility] Comment on above: Performed By: #### L [id number] ####Loss Prevention Associate: DOMENICA JARA ([id number])[facility])[address] [place] [address] RBC (Bld) [#/Vol] 2.63 10*6/uL Low 4.40-5.90 [facility] Comment on above: Performed By: #### L [id number] ####Loss Prevention Associate: DOMENICA JARA ([id number])[facility])[address] [place] [address] WBC (Bld) [#/Vol] 7.7 10*3/uL Normal 3.6-10.7 [facility] Comment on above: Performed By: #### L [id number] ####Loss Prevention Associate: DOMENICA JARA ([id number])[facility])[address] [place] [address] CBC panel Auto (Bld)on 03-04 Erythrocyte distribution width (RBC) [Ratio] 21.4 % High 11.5 - 15.0 % [facility] Hematocrit (Bld) [Volume fraction] 25.9 % Low 40.0 - 52.0 % [facility] Hemoglobin (Bld) [Mass/Vol] 7.7 g/dL Low 13.0 - 18.0 g/dL [facility] Interpretation and review of laboratory results Abnormal [facility] MCH (RBC) [Entitic mass] 29.3 pg 26. 0 - 34.0 pg [facility] MCHC (RBC) [Mass/Vol] 29.7 % Low 30.5 - 36.0 % [facility] MCV (RBC) [Entitic vol] 98.5 fL 77.0 - 99.0 fL [facility] Platelet mean volume (Bld) [Entitic vol] 9.3 fL 9.0 - 12.7 fL [facility] Platelets (Bld) [#/Vol] 324 10*3/uL 140 - 440 10*3/uL [facility] RBC (Bld) [#/Vol] 2.63 10*6/uL Low 4.40 - 5.9 0 10*6/uL [facility] WBC (Bld) [#/Vol] 7.7 10*3/uL 3.6 - 10.7 10*3/uL [facility] Laboratory - Coagulationon 0 03-04-2025 PT Coag (Bld) [Time] 16.6 s High 9.0 - 12.0 s [facility] PT Coag (Bld) [Time] 15.5 s High 9.0 - 12.0 s [facility] No Panel Informationon 03-04 Interpretation and review of laboratory results Abnormal [facility] PROTHROMBIN TIMEon INR Coag (PPP) [Relative time] 1.6 {INR} High 0.9-1.1 [facility] Comment on above: Result Comment: Vaughn mmended [...] Myocardial Infarction Performed By: #### L [id number] ####Loss Prevention Associate: DOMENICA JARA ([id number])[facility] ([facility])[address] [place] [address] [place] PT Coag (PPP) [Time] 16.6 s High 9.0-12.0 [facility] Comment on above: Performed By: #### L AB320 ####Loss Prevention Associate: DOMENICA JARA ([id number])[facility])[address] [place] [address] INR Coag (PPP) [Relative time] 1.5 {INR} High 0.9-1.1 [facility] Comment on above: Result Comment: Vaughn [...] Myocardial Infarction Performed By: #### Tameka AB325, [id number] ####Loss Prevention Associate: DOMENICA JARA ([id number])[facility] ([facility])[address] [place] [address] [place] PT Coag (PPP) [Time] 15.5 s High 9.0-12.0 [facility] Comment on above: Performed By: #### Tameka AB325, [id number] ####Loss Prevention Associate: DOMENICA JARA ([id number])[facility])[address] [place] [address] [place] PT Coag (Bld) [Time]on 03-04 INR Coag (PPP) [Relative time] 1.6 {INR} High 0.9 - 1.1 [facility] Interpretation and review of laboratory results Abnormal [facility] INR Coag (PPP) [Relative time] 1.5 {INR} High 0.9 - 1.1 [facility] Progress Noteon 03-04-2025 Progress Note Normal [facility] Progress Note [facility] Progress Note Normal [facility] aPTT Coag (Bld) [Time]on aPTT Coag (PPP) [Time] 52.2 s High 20.0 - 30.5 s [facility] 30on 03-03-2025 30 Normal [facility] 30 Normal [facility] 30 Normal [facility] [id number] 03-03-2025 [id number] Normal [facility] APTTon 03-03-2025 aPTT Coag (Bld) [Time] 66.2 s High 20.0-30.5 [facility] Comment on above: Result Comment: ARPAN Kaplan COMMENTS:NOTE: The therapeutic time for Heparin anticoagulation, based on Xa activity inhibition, is an APTT of 46-80 seconds. Performed By: #### L AB325 ####Loss Prevention Associate: DOMENICA JARA ([id number])[facility])[address] [place] [address] aPTT Coag (Bld) [Time] 52.4 s High 20.0-30.5 [facility] Comment on above: Result Comment: ARPAN Kaplan COMMENTS:NOTE: The therapeutic time for Heparin anticoagulation, based on Xa activity inhibition, is an APTT of 46-80 seconds. Performed By: #### L AB325, [id number] ####Loss Prevention Associate: DOMENICA JARA ([id number])[facility] ([facility])[address] [place] [address] BASIC METABOLIC PANELon 06 Anion gap [Moles/Vol] 10 mmol/L Normal 3-13 [facility] Comment on above: Performed By: #### L AB15 ####Loss Prevention Associate: DOMENICA JARA ([id number])[facility] ([facility])[address] [place] [address] Calcium [Mass/Vol] 9.2 mg/dL Normal 8.4-10.2 [facility] Comment on above: Performed By: #### L AB15 ####Loss Prevention Associate: DOMENICA JARA ([id number])[facility])[address] [place] [address] Chloride [Moles/Vol] 100 mmol/L Normal 98-107 [facility] Comment on above: Performed By: #### L AB15 ####Loss Prevention Associate: DOMENICA JARA ([id number])[facility])[address] [place] [address] CO2 [Moles/Vol] 29 mmol/L Normal 22-29 [facility] Comment on above: Performed By: #### L AB15 ####Loss Prevention Associate: DOMENICA JARA ([id number])[facility])[address] [place] [address] Creatinine [Mass/Vol] 1.92 mg/dL High 0.72-1.25 [facility] Comment on above: Performed By: #### L AB15 ####Loss Prevention Associate: DOMENICA JARA ([id number])[facility])[address] [place] [address] GLOMERULAR FILTRATION RATE ML/MIN/1.73 SQ M.PREDICTED 39.6 mL/min/1.73m*2 Low >60.0 [facility] Comment on above: Result Comment: Calc ulation based on the Chronic Kidney Disease Epidemiology Collaboration (CKD-EPI) equation refit without adjustment for race Performed By: #### L AB15 ####Loss Prevention Associate: DOMENIAC JARA ([id number])[facility])[address] [place] [address] Glucose [Mass/Vol] 71 mg/dL Low 74-100 [facility] Comment on above: Performed By: #### L AB15 ####Loss Prevention Associate: DOMENICA JARA ([id number])[facility])[address] [place] [address] Potassium [Moles/Vol] 4.8 mmol/L Normal 3.5-5.1 [facility] Comment on above: Result Comment: [facility] potassium values may be up to 0.5 mmol/L lower than serum values. Performed By: #### L AB15 ####Loss Prevention Associate: DOMENICA JARA ([id number])[facility])[address] [place] [address] Sodium [Moles/Vol] 139 mmol/L Normal 136-145 [facility] Comment on above: Performed By: #### L AB15 ####Loss Prevention Associate: DOMENICA JARA ([id number])[facility] ([facility])[address] [place] [address] Urea nitrogen [Mass/Vol] 14 mg/dL Normal 9-23 [facility] Comment on above: Performed By: #### L AB15 ####Loss Prevention Associate: DOMENICA JARA ([id number])[facility] [place] [address] Anion gap [Moles/Vol] 11 mmol/L Normal 3-13 [facility] Comment on above: Performed By: #### L AB15 ####Loss Prevention Associate: DOMENICA JARA ([id number])[facility] ([facility])[address] [place] [address] Calcium [Mass/Vol] 9.8 mg/dL Normal 8.4-10.2 [facility] Comment on above: Performed By: #### L AB15 ####Loss Prevention Associate: DOMENICA JARA ([id number])[facility])[address] [place] [address] [place] Chloride [Moles/Vol] 101 mmol/L Normal 98-107 [facility] Comment on above: Performed By: #### L AB15 ####Loss Prevention Associate: DOMENICA JARA ([id number])[facility] [place] [address] [place] CO2 [Moles/Vol] 28 mmol/L Normal 22-29 [facility] Comment on above: Performed By: #### L AB15 ####Loss Prevention Associate: DOMENICA JARA ([id number])[facility] ([facility])[address] [place] [address] [place] Creatinine [Mass/Vol] 3.21 mg/dL High 0.72-1.25 [facility] Comment on above: Performed By: #### L AB15 ####Loss Prevention Associate: DOMENICA JARA ([id number])[facility] ([address] GLOMERULAR FILTRATION RATE ML/MIN/1.73 SQ M.PREDICTED 21.4 mL/min/1.73m*2 Low >60.0 [facility] Comment on above: Result Comment: Calc ulation based on the Chronic Kidney Disease Epidemiology Collaboration (CKD-EPI) equation refit without adjustment for race Performed By: #### L AB15 ####Loss Prevention Associate: DOMENICA JARA ([id number])[facility])[address] [place] [address] Glucose [Mass/Vol] 93 mg/dL Normal 74-100 [facility] Comment on above: Performed By: #### L AB15 ####Loss Prevention Associate: DOMENICA JARA ([id number])[address] Potassium [Moles/Vol] 6.2 mmol/L Critically high 3.5-5.1 [facility] Comment on above: Result Comment: [facility] potassium values may be up to 0.5 mmol/L lower than serum values. Performed By: #### L AB15 ####Loss Prevention Associate: DOMENICA JARA ([id number])[address] Sodium [Moles/Vol] 140 mmol/L Normal 136-145 [facility] Comment on above: Performed By: #### L AB15 ####Loss Prevention Associate: DOMENICA JARA ([id number])[address] Urea nitrogen [Mass/Vol] 26 mg/dL High 9-23 [facility] Comment on above: Performed By: #### L AB15 ####Loss Prevention Associate: DOMENICA JARA ([id number])[address] Basic metabolic 1998 panelOr dered By: Piedad Alvarado on 03-03-2025 Anion gap [Moles/Vol] 10 mmol/L 3 - 13 mmol/L [facility] Calcium [Mass/Vol] 9.2 mg/dL 8.4 - 10. 2 mg/dL [facility] Chloride [Moles/Vol] 100 mmol/L 98 - 10 7 mmol/L [facility] CO2 [Moles/Vol] 29 mmol/L 22 - 29 mmol/L [facility] Creatinine [Mass/Vol] 1.92 mg/dL High 0.72 - 1.25 mg/dL [facility] GFR/1.73 sq M.predicted (S/P/Bld) [Vol rate/Area] 39.6 mL/min Low - PINF [facility] Glucose [Mass/Vol] 71 mg/dL Low 74 - 100 mg/dL [facility] Interpretation and review of laboratory results Abnormal [facility] Potassium [Moles/Vol] 4.8 mmol/L 3.5 - 5.1 mmol/L [facility] Sodium [Moles/Vol] 139 mmol/L 136 - 145 mmol/L [facility] Urea nitrogen [Mass/Vol] 14 mg/dL 9 - 23 mg/d L [facility] Basic metabolic 1998 panelOr dered By: Jenni Romano on 03-03-2025 Anion gap [Moles/Vol] 11 mmol/L 3 - 13 mmol/L [facility] Calcium [Mass/Vol] 9.8 mg/dL 8.4 - 10. 2 mg/dL [facility] Chloride [Moles/Vol] 101 mmol/L 98 - 10 7 mmol/L [facility] CO2 [Moles/Vol] 28 mmol/L 22 - 29 mmol/L [facility] Creatinine [Mass/Vol] 3.21 mg/dL High 0.72 - 1.25 mg/dL [facility] GFR/1.73 sq M.predicted (S/P/Bld) [Vol rate/Area] 21.4 mL/min Low - PINF [facility] Glucose [Mass/Vol] 93 mg/dL 74 - 100 mg/dL [facility] Interpretation and review of laboratory results Abnormal [facility] Potassium [Moles/Vol] 6.2 mmol/L Critically high 3.5 - 5.1 mmol/L [facility] Sodium [Moles/Vol] 140 mmol/L 136 - 145 mmol/L [facility] Urea nitrogen [Mass/Vol] 26 mg/dL High 9 - 23 mg/d L [facility] CBC (HEMOGRAM)on 03-03-2025 Erythrocyte distribution width (RBC) [Ratio] 20.9 % High 11.5-15.0 [facility] Comment on above: Performed By: #### L [id number] ####Loss Prevention Associate: DOMENICA JARA ([id number])[facility])[address] [place] [address] Hematocrit (Bld) [Volume fraction] 27.8 % Low 40.0-52.0 [facility] Comment on above: Performed By: #### L [id number] ####Loss Prevention Associate: DOMENICA JARA ([id number])[facility])[address] [place] [address] Hemoglobin (Bld) [Mass/Vol] 8.3 g/dL Low 13.0-18.0 [facility] Comment on above: Performed By: #### L [id number] ####Loss Prevention Associate: DOMENICA JARA ([id number])[address] IPF 2 Normal [facility] Comment on above: Performed By: #### L AB294 ####Loss Prevention Associate: DOMENICA JARA ([id number])[facility])[address] [place] [address] MCH (RBC) [Entitic mass] 29.5 pg Normal 26.0-34.0 [facility] Comment on above: Performed By: #### L [id number] ####Loss Prevention Associate: DOMENICA JARA ([id number])[address] MCHC 29.9 % Low 30.5-36.0 [facility] Comment on above: Performed By: #### L [id number] ####Loss Prevention Associate: DOMENICA JARA ([id number])[address] MCV (RBC) [Entitic vol] 98.9 fL Normal 77.0-99.0 [facility] Comment on above: Performed By: #### L [id number] ####Loss Prevention Associate: DOMENICA JARA ([id number])[facility] ([facility])[address] [place] [address] Platelet mean volume (Bld) [Entitic vol] 9.1 fL Normal 9.0-12.7 [facility] Comment on above: Performed By: #### L [id number] ####Loss Prevention Associate: DOMENICA JARA ([id number])[facility])[address] [place] [address] Platelets (Bld) [#/Vol] 397 10*3/uL Normal 140-440 [facility] Comment on above: Performed By: #### L AB294 ####Loss Prevention Associate: DOMENICA JARA ([id number])[facility])[address] [place] [address] RBC (Bld) [#/Vol] 2.81 10*6/uL Low 4.40-5.90 [facility] Comment on above: Performed By: #### L AB294 ####Loss Prevention Associate: DOMENICA JARA ([id number])[facility] ([facility])[address] [place] [address] WBC (Bld) [#/Vol] 8.9 10*3/uL Normal 3.6-10.7 [facility] Comment on above: Performed By: #### L AB294 ####Loss Prevention Associate: DOMENICA JARA ([id number])[facility])[address] [place] [address] CBC panel Auto (Bld)Ordered By: Anu Graham on 03-03-2025 Erythrocyte distribution width (RBC) [Ratio] 20.9 % High 11.5 - 15.0 % [facility] Hematocrit (Bld) [Volume fraction] 27.8 % Low 40.0 - 52.0 % [facility] Hemoglobin (Bld) [Mass/Vol] 8.3 g/dL Low 13.0 - 18.0 g/dL [facility] Interpretation and review of laboratory results Abnormal [facility] IPF 2 [facility] MCH (RBC) [Entitic mass] 29.5 pg 26. 0 - 34.0 pg [facility] MCHC (RBC) [Mass/Vol] 29.9 % Low 30.5 - 36.0 % [facility] MCV (RBC) [Entitic vol] 98.9 fL 77.0 - 99.0 fL [facility] Platelet mean volume (Bld) [Entitic vol] 9.1 fL 9.0 - 12.7 fL [facility] Platelets (Bld) [#/Vol] 397 10*3/uL 140 - 440 10*3/uL [facility] RBC (Bld) [#/Vol] 2.81 10*6/uL Low 4.40 - 5.9 0 10*6/uL [facility] WBC (Bld) [#/Vol] 8.9 10*3/uL 3.6 - 10.7 10*3/uL [facility] Laboratory - Coagulationon 0 03-03-2025 PT Coag (Bld) [Time] 16.2 s High 9.0 - 12.0 s [facility] No Panel Informationon 03-03 Interpretation and review of laboratory results Abnormal [facility] Nursing Noteon 03-03-2025 Nursing Note Normal [facility] Nursing Note In patient's chart, d/t patient being on his call light excessively and finally telling me he wants something for pain. Please see eMAR for administration Normal [facility] PROTHROMBIN TIMEon INR Coag (PPP) [Relative time] 1.6 {INR} High 0.9-1.1 [facility] Comment on above: Result Comment: Vaughn [...] Myocardial Infarction Performed By: #### L AB325, [id number] ####Loss Prevention Associate: DOMENICA JARA ([id number])[facility] ([address] PT Coag (PPP) [Time] 16.2 s High 9.0-12.0 [facility] Comment on above: Performed By: #### L AB325, [id number] ####Loss Prevention Associate: DOMENICA JARA ([id number])[facility] ([facility])[address] [place] [address] PT Coag (Bld) [Time]on 03-03 INR Coag (PPP) [Relative time] 1.6 {INR} High 0.9 - 1.1 [facility] Progress Noteon 03-03-2025 Progress Note Normal [facility] Progress Note Normal [facility] Progress Note Normal [facility] aPTT Coag (Bld) [Time]on aPTT Coag (PPP) [Time] 66.2 s High 20.0 - 30.5 s [facility] Interpretation and review of laboratory results Abnormal [facility] aPTT Coag (PPP) [Time] 52.4 s High 20.0 - 30.5 s [facility] 30on 03-02-2025 30 Switch to augmentin 500mg q24 (to be taken after HD on HD days) until 03/10/25. Team aware of discharge plan Waiting for INR to be in therapeutic range ID will sign off Please re consult if needed Hussain Quintana MD 03/02/2025 12:43 PM Normal [facility] 30 Normal [facility] [id number] 03-02-2025 [id number] Normal [facility] APTTon 03-02-2025 aPTT Coag (Bld) [Time] 68.9 s High 20.0-30.5 [facility] Comment on above: Result Comment: ARPAN Kaplan COMMENTS:NOTE: The therapeutic time for Heparin anticoagulation, based on Xa activity inhibition, is an APTT of 46-80 seconds. Performed By: #### L AB325 ####Loss Prevention Associate: DOMENICA JARA ([id number])[facility] ([facility])[address] [place] [address] [place] aPTT Coag (Bld) [Time] 44.7 s High 20.0-30.5 [facility] Comment on above: Result Comment: ARPAN Kaplan COMMENTS:NOTE: The therapeutic time for Heparin anticoagulation, based on Xa activity inhibition, is an APTT of 46-80 seconds. Performed By: #### L AB325 ####Loss Prevention Associate: DOMENICA JARA ([id number])[facility])[address] [place] [address] aPTT Coag (Bld) [Time] 56.5 s High 20.0-30.5 [facility] Comment on above: Result Comment: ARPAN Kaplan COMMENTS:NOTE: The therapeutic time for Heparin anticoagulation, based on Xa activity inhibition, is an APTT of 46-80 seconds. Performed By: #### L AB325 ####Loss Prevention Associate: DOMENICA JARA ([id number])[facility])[address] [place] [address] aPTT Coag (Bld) [Time] 44.7 s High 20.0-30.5 [facility] Comment on above: Result Comment: ARPAN Kaplan COMMENTS:NOTE: The therapeutic time for Heparin anticoagulation, based on Xa activity inhibition, is an APTT of 46-80 seconds. Performed By: #### L AB320, [id number] ####Loss Prevention Associate: DOMENICA JARA ([id number])[facility])[address] [place] [address] BASIC METABOLIC PANELon 06-0 Anion gap [Moles/Vol] 11 mmol/L Normal 3-13 [facility] Comment on above: Performed By: #### L AB15 ####Loss Prevention Associate: DOMENICA JARA ([id number])[facility])[address] [place] [address] Calcium [Mass/Vol] 9.2 mg/dL Normal 8.4-10.2 [facility] Comment on above: Performed By: #### L AB15 ####Loss Prevention Associate: DOMENICA JARA ([id number])[facility])[address] [place] [address] Chloride [Moles/Vol] 102 mmol/L Normal 98-107 [facility] Comment on above: Performed By: #### L AB15 ####Loss Prevention Associate: DOMENICA JARA ([id number])[facility])[address] [place] [address] CO2 [Moles/Vol] 26 mmol/L Normal 22-29 [facility] Comment on above: Performed By: #### L AB15 ####Loss Prevention Associate: DOMENICA JARA ([id number])[facility])[address] [place] [address] Creatinine [Mass/Vol] 2.53 mg/dL High 0.72-1.25 [facility] Comment on above: Performed By: #### L AB15 ####Loss Prevention Associate: DOMENICA JARA ([id number])[facility])[address] [place] [address] GLOMERULAR FILTRATION RATE ML/MIN/1.73 SQ M.PREDICTED 28.5 mL/min/1.73m*2 Low >60.0 [facility] Comment on above: Result Comment: Calc ulation based on the Chronic Kidney Disease Epidemiology Collaboration (CKD-EPI) equation refit without adjustment for race Performed By: #### L AB15 ####Loss Prevention Associate: DOMENICA JARA ([id number])[facility])[address] [place] [address] Glucose [Mass/Vol] 107 mg/dL High 74-100 [facility] Comment on above: Performed By: #### L AB15 ####Loss Prevention Associate: DOMENICA JARA ([id number])[facility])[address] [place] [address] Potassium [Moles/Vol] 4.6 mmol/L Normal 3.5-5.1 [facility] Comment on above: Result Comment: [facility] potassium values may be up to 0.5 mmol/L lower than serum values. Performed By: #### L AB15 ####Loss Prevention Associate: DOMENICA JARA ([id number])[facility])[address] [place] [address] Sodium [Moles/Vol] 139 mmol/L Normal 136-145 [facility] Comment on above: Performed By: #### L AB15 ####Loss Prevention Associate: DOEMNICA JARA ([id number])[facility])[address] [place] [address] Urea nitrogen [Mass/Vol] 16 mg/dL Normal 9-23 [facility] Comment on above: Performed By: #### L AB15 ####Loss Prevention Associate: DOMENICA JARA ([id number])[facility])[address] [place] [address] Basic metabolic 1998 panelon 03-02-2025 Anion gap [Moles/Vol] 11 mmol/L 3 - 13 mmol/L [facility] Calcium [Mass/Vol] 9.2 mg/dL 8.4 - 10. 2 mg/dL [facility] Chloride [Moles/Vol] 102 mmol/L 98 - 10 7 mmol/L [facility] CO2 [Moles/Vol] 26 mmol/L 22 - 29 mmol/L [facility] Creatinine [Mass/Vol] 2.53 mg/dL High 0.72 - 1.25 mg/dL [facility] GFR/1.73 sq M.predicted (S/P/Bld) [Vol rate/Area] 28.5 mL/min Low - PINF [facility] Glucose [Mass/Vol] 107 mg/dL High 74 - 100 mg/dL [facility] Interpretation and review of laboratory results Abnormal [facility] Potassium [Moles/Vol] 4.6 mmol/L 3.5 - 5.1 mmol/L [facility] Sodium [Moles/Vol] 139 mmol/L 136 - 145 mmol/L [facility] Urea nitrogen [Mass/Vol] 16 mg/dL 9 - 23 mg/d L [facility] CBC (HEMOGRAM)on 03-02-2025 Erythrocyte distribution width (RBC) [Ratio] 20.1 % High 11.5-15.0 [facility] Comment on above: Performed By: #### L [id number] ####Loss Prevention Associate: DOMENICA JARA ([id number])[facility] ([facility])[address] [place] [address] Hematocrit (Bld) [Volume fraction] 25.4 % Low 40.0-52.0 [facility] Comment on above: Performed By: #### L [id number] ####Loss Prevention Associate: DOMENICA JARA ([id number])[facility])[address] [place] [address] Hemoglobin (Bld) [Mass/Vol] 7.7 g/dL Low 13.0-18.0 [facility] Comment on above: Performed By: #### L AB294 ####Loss Prevention Associate: DOMENICA JARA ([id number])[facility])[address] [place] [address] IPF 2 Normal [facility] Comment on above: Performed By: #### L [id number] ####Loss Prevention Associate: DOMENICA JARA ([id number])[facility])[address] [place] [address] MCH (RBC) [Entitic mass] 29.7 pg Normal 26.0-34.0 [facility] Comment on above: Performed By: #### L [id number] ####Loss Prevention Associate: DOMENICA JARA ([id number])[facility])[address] [place] [address] MCHC 30.3 % Low 30.5-36.0 [facility] Comment on above: Performed By: #### L [id number] ####Loss Prevention Associate: DOMENICA JARA ([id number])[facility])[address] [place] [address] MCV (RBC) [Entitic vol] 98.1 fL Normal 77.0-99.0 [facility] Comment on above: Performed By: #### L [id number] ####Loss Prevention Associate: DOMENICA JARA ([id number])[facility])[address] [place] [address] Platelet mean volume (Bld) [Entitic vol] 9.0 fL Normal 9.0-12.7 [facility] Comment on above: Performed By: #### L [id number] ####Loss Prevention Associate: DOMENICA JARA ([id number])[facility])[address] [place] [address] Platelets (Bld) [#/Vol] 354 10*3/uL Normal 140-440 [facility] Comment on above: Performed By: #### L [id number] ####Loss Prevention Associate: DOMENICA JARA ([id number])[facility])[address] [place] [address] RBC (Bld) [#/Vol] 2.59 10*6/uL Low 4.40-5.90 [facility] Comment on above: Performed By: #### L [id number] ####Loss Prevention Associate: DOMENICA JARA ([id number])[address] WBC (Bld) [#/Vol] 7.4 10*3/uL Normal 3.6-10.7 [facility] Comment on above: Performed By: #### L [id number] ####Loss Prevention Associate: DOMENICA JARA ([id number])[facility])[address] [place] [address] CBC panel Auto (Bld)Ordered By: Callie Steele on 03-02-2025 Erythrocyte distribution width (RBC) [Ratio] 20.1 % High 11.5 - 15.0 % [facility] Hematocrit (Bld) [Volume fraction] 25.4 % Low 40.0 - 52.0 % [facility] Hemoglobin (Bld) [Mass/Vol] 7.7 g/dL Low 13.0 - 18.0 g/dL [facility] Interpretation and review of laboratory results Abnormal [facility] IPF 2 [facility] MCH (RBC) [Entitic mass] 29.7 pg 26. 0 - 34.0 pg [facility] MCHC (RBC) [Mass/Vol] 30.3 % Low 30.5 - 36.0 % [facility] MCV (RBC) [Entitic vol] 98.1 fL 77.0 - 99.0 fL [facility] Platelet mean volume (Bld) [Entitic vol] 9 fL 9.0 - 12.7 fL [facility] Platelets (Bld) [#/Vol] 354 10*3/uL 140 - 440 10*3/uL [facility] RBC (Bld) [#/Vol] 2.59 10*6/uL Low 4.40 - 5.9 0 10*6/uL [facility] WBC (Bld) [#/Vol] 7.4 10*3/uL 3.6 - 10.7 10*3/uL [facility] Laboratory - Coagulationon 0 03-02-2025 PT Coag (Bld) [Time] 14.7 s High 9.0 - 12.0 s [facility] No Panel Informationon 03-02 Interpretation and review of laboratory results Abnormal [facility] PROTHROMBIN TIMEon INR Coag (PPP) [Relative time] 1.4 {INR} High 0.9-1.1 [facility] Comment on above: Result Comment: Vaughn [...] prevent Myocardial Infarction Performed By: #### Tameka [id number], [id number] ####Loss Prevention Associate: DOMENICA JARA ([id number])[address] PT Coag (PPP) [Time] 14.7 s High 9.0-12.0 [facility] Comment on above: Performed By: #### Tameka AB320, [id number] ####Loss Prevention Associate: DOMENICA JARA ([id number])[address] PT Coag (Bld) [Time]on 03-02 INR Coag (PPP) [Relative time] 1.4 {INR} High 0.9 - 1.1 [facility] Progress Noteon 03-02-2025 Progress Note Normal [facility] Normal [facility] Progress Note Normal [facility] Progress Note Normal [facility] aPTT Coag (Bld) [Time]on aPTT Coag (PPP) [Time] 68.9 s High 20.0 - 30.5 s [facility] Interpretation and review of laboratory results Abnormal [facility] aPTT Coag (PPP) [Time] 44.7 s High 20.0 - 30.5 s [facility] Interpretation and review of laboratory results Abnormal [facility] aPTT Coag (PPP) [Time] 56.5 s High 20.0 - 30.5 s [facility] Interpretation and review of laboratory results Abnormal [facility] aPTT Coag (PPP) [Time] 44.7 s High 20.0 - 30.5 s [facility] 30on 03-01-2025 30 Normal [facility] [id number] 03-01-2025 [id number] Discharge med list and updated notes transmitted to [facility]. Normal [facility] [id number] Normal [facility] APTTon 03-01-2025 aPTT Coag (Bld) [Time] 51.3 s High 20.0-30.5 [facility] Comment on above: Result Comment: ARPAN Kaplan COMMENTS:NOTE: The therapeutic time for Heparin anticoagulation, based on Xa activity inhibition, is an APTT of 46-80 seconds. Performed By: #### L AB320, [id number] ####Loss Prevention Associate: DOMENICA JARA ([id number])[facility] ([facility])[address] [place] [address] BASIC METABOLIC PANELon Anion gap [Moles/Vol] 13 mmol/L Normal 3-13 [facility] Comment on above: Performed By: #### L AB15 ####Loss Prevention Associate: DOMENICA JARA ([id number])[facility] ([facility])[address] [place] [address] Calcium [Mass/Vol] 9.6 mg/dL Normal 8.4-10.2 [facility] Comment on above: Performed By: #### L AB15 ####Loss Prevention Associate: DOMENICA JARA ([id number])[facility] ([facility])[address] [place] [address] Chloride [Moles/Vol] 102 mmol/L Normal 98-107 [facility] Comment on above: Performed By: #### L AB15 ####Loss Prevention Associate: DOMENICA JARA ([id number])[facility] ([facility])[address] [place] [address] [place] CO2 [Moles/Vol] 23 mmol/L Normal 22-29 [facility] Comment on above: Performed By: #### L AB15 ####Loss Prevention Associate: DOMENICA JARA ([id number])[facility] ([facility])[address] [place] [address] Creatinine [Mass/Vol] 3.73 mg/dL High 0.72-1.25 [facility] Comment on above: Performed By: #### L AB15 ####Loss Prevention Associate: DOMENICA JARA ([id number])[facility] ([facility])[address] [place] [address] [place] GLOMERULAR FILTRATION RATE ML/MIN/1.73 SQ M.PREDICTED 17.9 mL/min/1.73m*2 Low >60.0 [facility] Comment on above: Result Comment: Calc ulation based on the Chronic Kidney Disease Epidemiology Collaboration (CKD-EPI) equation refit without adjustment for race Performed By: #### L AB15 ####Loss Prevention Associate: DOMENICA JARA ([id number])[facility] ([facility])[address] [place] [address] [place] Glucose [Mass/Vol] 87 mg/dL Normal 74-100 [facility] Comment on above: Performed By: #### L AB15 ####Loss Prevention Associate: DOMENICA JARA ([id number])[facility] ([facility])[address] [place] [address] [place] Potassium [Moles/Vol] 5.8 mmol/L High 3.5-5.1 [facility] Comment on above: Result Comment: [facility] potassium values may be up to 0.5 mmol/L lower than serum values. Performed By: #### L AB15 ####Loss Prevention Associate: DOMENICA JARA ([id number])[facility])[address] [place] [address] Sodium [Moles/Vol] 138 mmol/L Normal 136-145 [facility] Comment on above: Performed By: #### L AB15 ####Loss Prevention Associate: DOMENICA JARA ([id number])[facility] ([facility])[address] [place] [address] Urea nitrogen [Mass/Vol] 28 mg/dL High 9-23 [facility] Comment on above: Performed By: #### L AB15 ####Loss Prevention Associate: DOMENICA JARA ([id number])[facility])[address] [place] [address] Basic metabolic 1998 panelon 03-01-2025 Anion gap [Moles/Vol] 13 mmol/L 3 - 13 mmol/L [facility] Calcium [Mass/Vol] 9.6 mg/dL 8.4 - 10. 2 mg/dL [facility] Chloride [Moles/Vol] 102 mmol/L 98 - 10 7 mmol/L [facility] CO2 [Moles/Vol] 23 mmol/L 22 - 29 mmol/L [facility] Creatinine [Mass/Vol] 3.73 mg/dL High 0.72 - 1.25 mg/dL [facility] GFR/1.73 sq M.predicted (S/P/Bld) [Vol rate/Area] 17.9 mL/min Low - PINF [facility] Glucose [Mass/Vol] 87 mg/dL 74 - 100 mg/dL [facility] Interpretation and review of laboratory results Abnormal [facility] Potassium [Moles/Vol] 5.8 mmol/L High 3.5 - 5.1 mmol/L [facility] Sodium [Moles/Vol] 138 mmol/L 136 - 145 mmol/L [facility] Urea nitrogen [Mass/Vol] 28 mg/dL High 9 - 23 mg/d L [facility] CBC (HEMOGRAM)on 03-01-2025 Erythrocyte distribution width (RBC) [Ratio] 19.7 % High 11.5-15.0 [facility] Comment on above: Performed By: #### L [id number] ####Loss Prevention Associate: DOMENICA JARA ([id number])[address] Hematocrit (Bld) [Volume fraction] 26.9 % Low 40.0-52.0 [facility] Comment on above: Performed By: #### L [id number] ####Loss Prevention Associate: DOMENICA JARA ([id number])[facility])[address] [place] [address] Hemoglobin (Bld) [Mass/Vol] 8.0 g/dL Low 13.0-18.0 [facility] Comment on above: Performed By: #### L [id number] ####Loss Prevention Associate: DOMENICA JARA ([id number])[address] MCH (RBC) [Entitic mass] 28.8 pg Normal 26.0-34.0 [facility] Comment on above: Performed By: #### L AB294 ####Loss Prevention Associate: DOMENICA JARA ([id number])[facility])[address] [place] [address] MCHC 29.7 % Low 30.5-36.0 [facility] Comment on above: Performed By: #### L [id number] ####Loss Prevention Associate: DOMENICA JARA ([id number])[address] MCV (RBC) [Entitic vol] 96.8 fL Normal 77.0-99.0 [facility] Comment on above: Performed By: #### L [id number] ####Loss Prevention Associate: DOMENICA JARA ([id number])[facility])[address] [place] [address] Platelet mean volume (Bld) [Entitic vol] 8.7 fL Low 9.0-12.7 [facility] Comment on above: Performed By: #### L [id number] ####Loss Prevention Associate: DOMENICA JARA ([id number])[facility] ([facility])[address] [place] [address] Platelets (Bld) [#/Vol] 306 10*3/uL Normal 140-440 [facility] Comment on above: Performed By: #### L [id number] ####Loss Prevention Associate: DOMENICA JARA ([id number])[facility])[address] [place] [address] RBC (Bld) [#/Vol] 2.78 10*6/uL Low 4.40-5.90 [facility] Comment on above: Performed By: #### L AB294 ####Loss Prevention Associate: DOMENICA JARA ([id number])[facility])[address] [place] [address] WBC (Bld) [#/Vol] 7.5 10*3/uL Normal 3.6-10.7 [facility] Comment on above: Performed By: #### L [id number] ####Loss Prevention Associate: DOMENICA JARA ([id number])[facility])[address] [place] [address] CBC panel Auto (Bld)on 03-01 Erythrocyte distribution width (RBC) [Ratio] 19.7 % High 11.5 - 15.0 % [facility] Hematocrit (Bld) [Volume fraction] 26.9 % Low 40.0 - 52.0 % [facility] Hemoglobin (Bld) [Mass/Vol] 8 g/dL Low 13.0 - 18.0 g/dL [facility] Interpretation and review of laboratory results Abnormal [facility] MCH (RBC) [Entitic mass] 28.8 pg 26. 0 - 34.0 pg [facility] MCHC (RBC) [Mass/Vol] 29.7 % Low 30.5 - 36.0 % [facility] MCV (RBC) [Entitic vol] 96.8 fL 77.0 - 99.0 fL [facility] Platelet mean volume (Bld) [Entitic vol] 8.7 fL Low 9.0 - 12.7 fL [facility] Platelets (Bld) [#/Vol] 306 10*3/uL 140 - 440 10*3/uL [facility] RBC (Bld) [#/Vol] 2.78 10*6/uL Low 4.40 - 5.9 0 10*6/uL [facility] WBC (Bld) [#/Vol] 7.5 10*3/uL 3.6 - 10.7 10*3/uL [facility] Laboratory - Coagulationon 0 03-01-2025 PT Coag (Bld) [Time] 14.3 s High 9.0 - 12.0 s [facility] No Panel Informationon 03-01 Interpretation and review of laboratory results Abnormal [facility] Nursing Noteon 03-01-2025 Nursing Note Normal [facility] PROTHROMBIN TIMEon INR Coag (PPP) [Relative time] 1.4 {INR} High 0.9-1.1 [facility] Comment on above: Result Comment: Vaughn [...] Myocardial Infarction Performed By: #### Tameka [id number], [id number] ####Loss Prevention Associate: DOMENICA JARA ([id number])[facility] ([address] PT Coag (PPP) [Time] 14.3 s High 9.0-12.0 [facility] Comment on above: Performed By: #### Tameka AB320, [id number] ####Loss Prevention Associate: DOMENICA JARA ([id number])[facility] ([facility])[address] [place] [address] PT Coag (Bld) [Time]on 03-01 INR Coag (PPP) [Relative time] 1.4 {INR} High 0.9 - 1.1 [facility] Progress Noteon 03-01-2025 Progress Note Normal [facility] Progress Note Normal [facility] Progress Note Normal [facility] Progress Note Normal [facility] Progress Note PHYSICAL THERAPY [facility] Name/MRN: Jair Snyder ([id number]) Date: 03/01/2025 Leaving for dialysis. Return later time/date for PT. 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 Updated snf . [facility] [phone] Transport requested in [employer] in will call per TCC. 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 Performed By: #### L AB325, [id number] ####Loss Prevention Associate: DOMENICA JARA ([id number])[facility] ([facility] BASIC METABOLIC PANELon Anion gap [Moles/Vol] 11 mmol/L Normal 3-13 [facility] Comment on above: Performed By: #### L AB15 ####Loss Prevention Associate: DOMENICA JARA ([id number])[facility] ([facility])[address] [place] [address] Calcium [Mass/Vol] 9.3 mg/dL Normal 8.4-10.2 [facility] Comment on above: Performed By: #### L AB15 ####Loss Prevention Associate: DOMENICA JARA ([id number])[facility] [place] [address] [place] Chloride [Moles/Vol] 100 mmol/L Normal 98-107 [facility] Comment on above: Performed By: #### L AB15 ####Loss Prevention Associate: DOMENICA JARA ([id number])[facility] [place] [address] CO2 [Moles/Vol] 27 mmol/L Normal 22-29 [facility] Comment on above: Performed By: #### L AB15 ####Loss Prevention Associate: DOMENICA JARA ([id number])[facility] [place] [address] Creatinine [Mass/Vol] 3.06 mg/dL High 0.72-1.25 [facility] Comment on above: Performed By: #### L AB15 ####Loss Prevention Associate: DOMENICA JARA ([id number])[facility] ([facility])[address] [place] [address] GLOMERULAR FILTRATION RATE ML/MIN/1.73 SQ M.PREDICTED 22.7 mL/min/1.73m*2 Low >60.0 [facility] Comment on above: Result Comment: Calc ulation based on the Chronic Kidney Disease Epidemiology Collaboration (CKD-EPI) equation refit without adjustment for race Performed By: #### L AB15 ####Loss Prevention Associate: DOMENICA JARA ([id number])[facility] ([facility])[address] [place] [address] Glucose [Mass/Vol] 94 mg/dL Normal 74-100 [facility] Comment on above: Performed By: #### L AB15 ####Loss Prevention Associate: DOMENICA JARA ([id number])[facility] ([facility])[address] [place] [address] Potassium [Moles/Vol] 5.0 mmol/L Normal 3.5-5.1 [facility] Comment on above: Result Comment: [facility] potassium values may be up to 0.5 mmol/L lower than serum values. Performed By: #### L AB15 ####Loss Prevention Associate: DOMENICA JARA ([id number])[facility] ([facility])[address] [place] [address] Sodium [Moles/Vol] 138 mmol/L Normal 136-145 [facility] Comment on above: Performed By: #### L AB15 ####Loss Prevention Associate: DOMENICA JARA ([id number])[facility])[address] [place] [address] Urea nitrogen [Mass/Vol] 19 mg/dL Normal 9-23 [facility] Comment on above: Performed By: #### L AB15 ####Loss Prevention Associate: DOMENICA JARA ([id number])[facility] ([facility])[address] [place] [address] Basic metabolic 1998 panelon 02-28-2025 Anion gap [Moles/Vol] 11 mmol/L 3 - 13 mmol/L [facility] Calcium [Mass/Vol] 9.3 mg/dL 8.4 - 10. 2 mg/dL [facility] Chloride [Moles/Vol] 100 mmol/L 98 - 10 7 mmol/L [facility] CO2 [Moles/Vol] 27 mmol/L 22 - 29 mmol/L [facility] Creatinine [Mass/Vol] 3.06 mg/dL High 0.72 - 1.25 mg/dL [facility] GFR/1.73 sq M.predicted (S/P/Bld) [Vol rate/Area] 22.7 mL/min Low - PINF [facility] Glucose [Mass/Vol] 94 mg/dL 74 - 100 mg/dL [facility] Interpretation and review of laboratory results Abnormal [facility] Potassium [Moles/Vol] 5 mmol/L 3.5 - 5.1 mmol/L [facility] Sodium [Moles/Vol] 138 mmol/L 136 - 145 mmol/L [facility] Urea nitrogen [Mass/Vol] 19 mg/dL 9 - 23 mg/d L [facility] CBC (HEMOGRAM)on 02-28-2025 Erythrocyte distribution width (RBC) [Ratio] 19.8 % High 11.5-15.0 [facility] Comment on above: Performed By: #### L [id number] ####Loss Prevention Associate: DOMENICA JARA ([id number])[facility])[address] [place] [address] Hematocrit (Bld) [Volume fraction] 26.9 % Low 40.0-52.0 [facility] Comment on above: Performed By: #### L [id number] ####Loss Prevention Associate: DOMENICA JARA ([id number])[facility])[address] [place] [address] Hemoglobin (Bld) [Mass/Vol] 8.2 g/dL Low 13.0-18.0 [facility] Comment on above: Performed By: #### L [id number] ####Loss Prevention Associate: DOMENICA JARA ([id number])[facility] ([facility])[address] [place] [address] MCH (RBC) [Entitic mass] 29.3 pg Normal 26.0-34.0 [facility] Comment on above: Performed By: #### L [id number] ####Loss Prevention Associate: DOMENICA JARA ([id number])[facility])[address] [place] [address] MCHC 30.5 % Normal 30.5-36.0 [facility] Comment on above: Performed By: #### L [id number] ####Loss Prevention Associate: DOMENICA JARA ([id number])[facility])[address] [place] [address] MCV (RBC) [Entitic vol] 96.1 fL Normal 77.0-99.0 [facility] Comment on above: Performed By: #### L [id number] ####Loss Prevention Associate: DOMENICA JARA ([id number])[facility])[address] [place] [address] Platelet mean volume (Bld) [Entitic vol] 9.0 fL Normal 9.0-12.7 [facility] Comment on above: Performed By: #### L [id number] ####Loss Prevention Associate: DOMENICA JARA ([id number])[facility] ([facility])[address] [place] [address] Platelets (Bld) [#/Vol] 324 10*3/uL Normal 140-440 [facility] Comment on above: Performed By: #### L [id number] ####Loss Prevention Associate: DOMENICA JARA ([id number])[facility] ([facility])[address] [place] [address] RBC (Bld) [#/Vol] 2.80 10*6/uL Low 4.40-5.90 [facility] Comment on above: Performed By: #### L [id number] ####Loss Prevention Associate: DOMENICA JARA ([id number])[facility] ([facility])[address] [place] [address] WBC (Bld) [#/Vol] 8.0 10*3/uL Normal 3.6-10.7 [facility] Comment on above: Performed By: #### L [id number] ####Loss Prevention Associate: DOMENICA JARA ([id number])[facility] ([facility])[address] [place] [address] CBC panel Auto (Bld)Ordered By: Giancarlo Lakhani on 02-28-2025 Erythrocyte distribution width (RBC) [Ratio] 19.8 % High 11.5 - 15.0 % [facility] Hematocrit (Bld) [Volume fraction] 26.9 % Low 40.0 - 52.0 % [facility] Hemoglobin (Bld) [Mass/Vol] 8.2 g/dL Low 13.0 - 18.0 g/dL [facility] Interpretation and review of laboratory results Abnormal [facility] MCH (RBC) [Entitic mass] 29.3 pg 26. 0 - 34.0 pg [facility] MCHC (RBC) [Mass/Vol] 30.5 % 30.5 - 36.0 % [facility] MCV (RBC) [Entitic vol] 96.1 fL 77.0 - 99.0 fL [facility] Platelet mean volume (Bld) [Entitic vol] 9 fL 9.0 - 12.7 fL [facility] Platelets (Bld) [#/Vol] 324 10*3/uL 140 - 440 10*3/uL [facility] RBC (Bld) [#/Vol] 2.8 10*6/uL Low 4.40 - 5.9 0 10*6/uL [facility] WBC (Bld) [#/Vol] 8 10*3/uL 3.6 - 10.7 10*3/uL [facility] Laboratory - Coagulationon 0 02-28-2025 PT Coag (Bld) [Time] 14 s High 9.0 - 12.0 s [facility] No Panel Informationon 02-28 Interpretation and review of laboratory results Abnormal [facility] Nursing Noteon 02-28-2025 Nursing Note Normal [facility] PROTHROMBIN TIMEon INR Coag (PPP) [Relative time] 1.3 {INR} High 0.9-1.1 [facility] Comment on above: Result Comment: Vaughn [...] Myocardial Infarction Performed By: #### Tameka AB325, [id number] ####Loss Prevention Associate: DOMENICA JARA ([id number])[facility] ([facility])[address] [place] [address] PT Coag (PPP) [Time] 14.0 s High 9.0-12.0 [facility] Comment on above: Performed By: #### Tameka [id number], [id number] ####Loss Prevention Associate: DOMENICA JARA ([id number])[facility] [place] [address] PT Coag (Bld) [Time]on 02-28 INR Coag (PPP) [Relative time] 1.3 {INR} High 0.9 - 1.1 [facility] Progress Noteon 02-28-2025 Progress Note Normal [facility] Progress Note Normal [facility] Progress Note Normal [facility] Progress Note Normal [facility] aPTT Coag (Bld) [Time]on aPTT Coag (PPP) [Time] 47.7 s High 20.0 - 30.5 s [facility] 30on 02-27-2025 30 Normal [facility] 30 Normal [facility] [id number] 02-27-2025 [id number] Normal [facility] APTTon 02-27-2025 aPTT Coag (Bld) [Time] 55.6 s High 20.0-30.5 [facility] Comment on above: Result Comment: ARPAN Kaplan COMMENTS:NOTE: The therapeutic time for Heparin anticoagulation, based on Xa activity inhibition, is an APTT of 46-80 seconds. Performed By: #### L AB325, [id number] ####Loss Prevention Associate: DOMENICA JARA ([id number])[address] Bacteria identified Cx Nom ( Bld)on 02-27-2025 Interpretation and review of laboratory results Normal [facility] Interpretation and review of laboratory results Normal [facility] CBC (HEMOGRAM)on 02-27-2025 Erythrocyte distribution width (RBC) [Ratio] 19.5 % High 11.5-15.0 [facility] Comment on above: Performed By: #### L [id number] ####Loss Prevention Associate: DOMENICA JARA ([id number])[address] Hematocrit (Bld) [Volume fraction] 28.8 % Low 40.0-52.0 [facility] Comment on above: Performed By: #### L [id number] ####Loss Prevention Associate: DOMENICA JARA ([id number])[address] [place] [address] [place] Hemoglobin (Bld) [Mass/Vol] 8.6 g/dL Low 13.0-18.0 [facility] Comment on above: Performed By: #### L [id number] ####Loss Prevention Associate: DOMENICA JARA ([id number])[facility])[address] [place] [address] MCH (RBC) [Entitic mass] 28.7 pg Normal 26.0-34.0 [facility] Comment on above: Performed By: #### L [id number] ####Loss Prevention Associate: DOMENICA JARA ([id number])[facility])[address] [place] [address] MCHC 29.9 % Low 30.5-36.0 [facility] Comment on above: Performed By: #### L AB294 ####Loss Prevention Associate: DOMENICA JARA ([id number])[facility])[address] [place] [address] MCV (RBC) [Entitic vol] 96.0 fL Normal 77.0-99.0 [facility] Comment on above: Performed By: #### L [id number] ####Loss Prevention Associate: DOMENICA JARA ([id number])[facility])[address] [place] [address] Platelet mean volume (Bld) [Entitic vol] 8.9 fL Low 9.0-12.7 [facility] Comment on above: Performed By: #### L [id number] ####Loss Prevention Associate: DOMENICA JARA ([id number])[facility])[address] [place] [address] Platelets (Bld) [#/Vol] 302 10*3/uL Normal 140-440 [facility] Comment on above: Performed By: #### L [id number] ####Loss Prevention Associate: DOMENICA JARA ([id number])[facility])[address] [place] [address] RBC (Bld) [#/Vol] 3.00 10*6/uL Low 4.40-5.90 [facility] Comment on above: Performed By: #### L [id number] ####Loss Prevention Associate: DOMNEICA JARA ([id number])[facility] ([facility])[address] [place] [address] WBC (Bld) [#/Vol] 7.9 10*3/uL Normal 3.6-10.7 [facility] Comment on above: Performed By: #### L [id number] ####Loss Prevention Associate: DOMENICA JARA ([id number])[facility] ([facility])[address] [place] [address] CBC panel Auto (Bld)Ordered By: Brandy Ross on 02-27-2025 Erythrocyte distribution width (RBC) [Ratio] 19.5 % High 11.5 - 15.0 % [facility] Hematocrit (Bld) [Volume fraction] 28.8 % Low 40.0 - 52.0 % [facility] Hemoglobin (Bld) [Mass/Vol] 8.6 g/dL Low 13.0 - 18.0 g/dL [facility] Interpretation and review of laboratory results Abnormal [facility] MCH (RBC) [Entitic mass] 28.7 pg 26. 0 - 34.0 pg [facility] MCHC (RBC) [Mass/Vol] 29.9 % Low 30.5 - 36.0 % [facility] MCV (RBC) [Entitic vol] 96 fL 77.0 - 99.0 fL [facility] Platelet mean volume (Bld) [Entitic vol] 8.9 fL Low 9.0 - 12.7 fL [facility] Platelets (Bld) [#/Vol] 302 10*3/uL 140 - 440 10*3/uL [facility] RBC (Bld) [#/Vol] 3 10*6/uL Low 4.40 - 5.9 0 10*6/uL [facility] WBC (Bld) [#/Vol] 7.9 10*3/uL 3.6 - 10.7 10*3/uL [facility] ECG 12-LEADon 02-27-2025 ECG 12-LEAD IMPRESSION: Sinus rhythm Left atrial enlargement RBBB and LPFB Abnrm T, consider ischemia, anterolateral lds Compared to ECG 01/19/2025 06:31:48 Prolonged QT interval no longer present Electronically Signed On 02-27-2025 16:08:17 EDT by Ochoa Guido Normal [facility] Laboratory - Coagulationon 0 02-27-2025 PT Coag (Bld) [Time] 13.7 s High 9.0 - 12.0 s [facility] Laboratory - Microbiology an d Antimicrobial susceptibilityon 02-27-2025 Bacteria identified Cx Nom (Bld) No growth at 5 days [facility] [employer] Bacteria identified Cx Nom (Bld) No growth at 5 days [facility] [employer] No Panel InformationOrdered By: Ochoa Guido on 02-27-2025 P [place] 76 degrees [facility] [employer] Work Phone: NH Interval 150 ms [facility] CenterCon[facility] Networks Work Phone: QRS [place] 92 degrees [facility] Center[facility] Work Phone: QRSD Interval 124 ms [facility] CenterMind[facility] [employer] Work Phone: QT Interval 417 ms [facility] Center[facility] Work Phone: QTC Interval 482 ms [facility] [employer] Work Phone: T Wave [place] 95 degrees [facility] CenterConS[facility] Networks Work Phone: [employer] Work Phone: No Panel Informationon 02-27 CV EPIPHANY [facility] Interpretation and review of laboratory results Abnormal [facility] Nursing Noteon 02-27-2025 Nursing Note Normal [facility] Nursing Note Normal [facility] PROTHROMBIN TIMEon INR Coag (PPP) [Relative time] 1.3 {INR} High 0.9-1.1 [facility] Comment on above: Result Comment: Vaughn [...] Myocardial Infarction Performed By: #### L AB325, [id number] ####Loss Prevention Associate: DOMENICA JARA ([id number])[facility] ([facility])[address] [place] [address] PT Coag (PPP) [Time] 13.7 s High 9.0-12.0 [facility] Comment on above: Performed By: #### L AB325, [id number] ####Loss Prevention Associate: DOMENICA JARA ([id number])[facility] ([facility])[address] [place] [address] PT Coag (Bld) [Time]on 02-27 INR Coag (PPP) [Relative time] 1.3 {INR} High 0.9 - 1.1 [facility] Progress Noteon 02-27-2025 Progress Note Normal [facility] Progress Note Normal [facility] Progress Note Normal [facility] Progress Note Normal [facility] Progress Note Normal [facility] Progress Note Normal [facility] Vital signsOrdered By: Ochoa Guido on 02-27-2025 Heart rate 80 /min bpm [facility] Work Phone: aPTT Coag (Bld) [Time]on aPTT Coag (PPP) [Time] 55.6 s High 20.0 - 30.5 s [facility] 30on 02-26-2025 30 Normal [facility] [id number] 02-26-2025 [id number] Normal [facility] [id number] 02-26-2025 [id number] Getting updated therapy notes. Want to skill him at [facility]. Started on IV antibiotics for aspiration pneumonia. Continues on a heparin gtt. . [facility] [phone] Updated notes sent to [facility] via [facility] [facility] per [facility] request. Await review and response regarding ability to accept. TCC notified. [facility] 36on 02-26-2025 36 Normal [facility] CBC W/Diff, Automatedon 06- Absolute Neut Normal 2.0-7.7 [place] Comment on above: Order Comment: 413-2 Result Comment: KIMBER ENT DISCHARGED Performed By: #### L 300.3900 #### [facility] [address] [place], [address] HCT Normal 40-54 [facility] Comment on above: Order Comment: 413-2 Result Comment: KIMBER ENT DISCHARGED Performed By: #### L 300.3900 #### [facility] [address] [place], [address] HGB Normal 13.0-16.5 [facility] Comment on above: Order Comment: 413-2 Result Comment: KIMBER ENT DISCHARGED Performed By: #### L 300.3900 #### [facility] [address] [place], [address] MCH Normal 27.0-32.0 [facility] Comment on above: Order Comment: 413-2 Result Comment: KIMBER ENT DISCHARGED Performed By: #### L 300.3900 #### [facility] [address] [place], [address] MCHC Normal 32-36 [facility] Comment on above: Order Comment: 413-2 Result Comment: KIMBER ENT DISCHARGED Performed By: #### L 300.3900 #### [facility] [address] [place], [address] MCV Normal 80-94 [facility] Comment on above: Order Comment: 413-2 Result Comment: KIMBER ENT DISCHARGED Performed By: #### L 300.3900 #### [facility] [address] [place], [address] NEUT% Normal 47-70 [facility] Comment on above: Order Comment: 413-2 Result Comment: KIMBER ENT DISCHARGED Performed By: #### L 300.3900 #### [facility] [address] [place], [address] PLT Normal 150-450 [facility] Comment on above: Order Comment: 413-2 Result Comment: KIMBER ENT DISCHARGED Performed By: #### L 300.3900 #### [facility] [address] [place], [address] RBC Normal 4.6-6.2 [facility] Comment on above: Order Comment: 413-2 Result Comment: KIMBER ENT DISCHARGED Performed By: #### L 300.3900 #### [facility] [address] [place], [address] RDW CV Normal 11.6-14.6 [facility] Comment on above: Order Comment: 413-2 Result Comment: KIMBER ENT DISCHARGED Performed By: #### L 300.3900 #### [facility] [address] [place], [address] RDW SD Normal 35.1-43.9 [facility] Comment on above: Order Comment: 413-2 Result Comment: KIMBER ENT DISCHARGED Performed By: #### L 300.3900 #### [facility] [address] [place], [address] WBC Normal 4.4-11.0 [facility] Comment on above: Order Comment: 413-2 Result Comment: KIMBER ENT DISCHARGED Performed By: #### L 300.3900 #### [facility] [address] [place], [address] Comprehensive Metabolic Prof ilon 02-26-2025 ALB Normal 3.5-5.0 [facility] Comment on above: Order Comment: 413-2 Result Comment: KIMBER ENT DISCHARGED Performed By: #### L 500.4050, L100.0100, L300.3900 #### [facility] [address] [place], [address] ALK PHOS Normal 40-129 [facility] Comment on above: Order Comment: 413-2 Result Comment: KIMBER ENT DISCHARGED Performed By: #### L 500.4050, L100.0100, L300.3900 #### [facility] [address] [place], [address] ALT Normal <=46 [facility] Comment on above: Order Comment: 413-2 Result Comment: KIMBER ENT DISCHARGED Performed By: #### L 500.4050, L100.0100, L300.3900 #### [facility] [address] [place], [address] AST Normal <=37 [facility] Comment on above: Order Comment: 413-2 Result Comment: KIMBER ENT DISCHARGED Performed By: #### L 500.4050, L100.0100, L300.3900 #### [facility] [address] [place], [address] BUN Normal 4-19 [facility] Comment on above: Order Comment: 413-2 Result Comment: KIMBER ENT DISCHARGED Performed By: #### L 500.4050, L100.0100, L300.3900 #### [facility] [address] [place], [address] BUN/CRE Normal 10-20 [facility] Comment on above: Order Comment: 413-2 Result Comment: KIMBER ENT DISCHARGED Performed By: #### L 500.4050, L100.0100, L300.3900 #### [facility] [address] [place], [address] Calcium Normal 7.6-11.0 [facility] Comment on above: Order Comment: 413-2 Result Comment: KIMBER ENT DISCHARGED Performed By: #### L 500.4050, L100.0100, L300.3900 #### [facility] [address] [place], [address] CL Normal 98-108 [facility] Comment on above: Order Comment: 413-2 Result Comment: KIMBER ENT DISCHARGED Performed By: #### L 500.4050, L100.0100, L300.3900 #### [facility] [address] [place], [address] CO2 Normal 21.0-32.0 [facility] Comment on above: Order Comment: 413-2 Result Comment: KIMBER ENT DISCHARGED Performed By: #### L 500.4050, L100.0100, L300.3900 #### [facility] [address] [place], [address] CREAT,SERUM Normal 0.70-1.20 [facility] Comment on above: Order Comment: 413-2 Result Comment: KIMBER ENT DISCHARGED Performed By: #### L 500.4050, L100.0100, L300.3900 #### [facility] [address] [place], [address] eGFR Normal >60 [facility] Comment on above: Order Comment: 413-2 Result Comment: KIMBER ENT DISCHARGED Performed By: #### L 500.4050, L100.0100, L300.3900 #### [facility] [address] [place], [address] GAP Normal 5-15 [facility] Comment on above: Order Comment: 413-2 Result Comment: KIMBER ENT DISCHARGED Performed By: #### L 500.4050, L100.0100, L300.3900 #### [facility] [address] [place], [address] GLU Normal 70-99 [facility] Comment on above: Order Comment: 413-2 Result Comment: KIMBER ENT DISCHARGED Performed By: #### L 500.4050, L100.0100, L300.3900 #### [facility] [address] [place], [address] Potassium Normal 3.3-5.1 [facility] Comment on above: Order Comment: 413-2 Result Comment: KIMBER ENT DISCHARGED Performed By: #### L 500.4050, L100.0100, L300.3900 #### [facility] [address] [place], [address] T BILI Normal 0.00-1.30 [facility] Comment on above: Order Comment: 413-2 Result Comment: KIMBER ENT DISCHARGED Performed By: #### L 500.4050, L100.0100, L300.3900 #### [facility] [address] [place], [address] T PROT Normal 5.9-8.4 [facility] Comment on above: Order Comment: 413-2 Result Comment: KIMBER ENT DISCHARGED Performed By: #### L 500.4050, L100.0100, L300.3900 #### [facility] [address] [place], [address] Comprehensive Metabolic Profil Normal 133-145 [facility] Comment on above: Order Comment: 413-2 Result Comment: KIMBER ENT DISCHARGED Performed By: #### L 500.4050, L100.0100, L300.3900 #### [facility] [address] [place], [address] HIGH SENSITIVITY TROPONIN, S ERIAL, SECOND TESTon 02-26-2025 2H TROPONIN HS (SERIAL 2ND TROPONIN) 80 ng/L High <=35 [facility] Comment on above: Result Comment: [...] 3rd serial troponin Performed By: #### L [id number] ####Loss Prevention Associate: DOMENICA JARA ([id number])[facility] ([address] HIGH SENSITIVITY TROPONIN, S ERIAL, THIRD TESTon 02-26-2025 4H TROPONIN HS (SERIAL 3RD TROPONIN) 75 ng/L High <=35 [facility] Comment on above: Result Comment: 4h t roponin (3rd troponin) samples collected between 1h 40 min and 2h and 20 min of the 2h troponin collection time can be utilized to interpret delta troponins as per [facility] algorithms. Samples collected outside this timeframe need to be interpreted clinically.Rising or falling troponin delta between 2 ??? 15 ng/L as compared to 2h troponin valuerequires further evaluation. Performed By: #### L [id number] ####Loss Prevention Associate: DOMENICA JARA ([id number])[facility] ([facility] Laboratory - Coagulationon 0 02-26-2025 PT Coag (Bld) [Time] 13.5 s High 9.0 - 12.0 s [facility] No Panel Informationon 02-26 4h Troponin HS (Serial 3rd Troponin) 75 ng/L High NINF - 35 ng/L [facility] Interpretation and review of laboratory results Abnormal [facility] 2h Troponin HS (Serial 2nd Troponin) 80 ng/L High [facility] - [facility] ng/L [facility] Interpretation and review of laboratory results Abnormal [facility] Interpretation and review of laboratory results Abnormal [facility] Troponin HS Serial Baseline 84 ng/L High NINF - 35 ng/L [facility] Interpretation and review of laboratory results Abnormal [facility] PT Coag (Bld) [Time]on 02-26 INR Coag (PPP) [Relative time] 1.3 {INR} High 0.9 - 1.1 [facility] Progress Noteon 02-26-2025 Progress Note Normal [facility] Progress Note Normal [facility] Progress Note Normal [facility] Progress Note Normal [facility] Prothrombin Time w/INRon INR Normal [facility] Comment on above: Order Comment: 413-2 Result Comment: KIMBER ENT DISCHARGED Performed By: #### L 500.4050, L100.0100, L300.3900 #### [facility] [address] [place], [address] PROTIME Normal 11.7-14.9 [facility] Comment on above: Order Comment: 413-2 Result Comment: KIMBER ENT DISCHARGED Performed By: #### L 500.4050, L100.0100, L300.3900 #### [facility] [address] [place], [address] aPTT Coag (Bld) [Time]on aPTT Coag (PPP) [Time] 48.2 s High 20.0 - 30.5 s [facility] 30on 02-25-2025 30 Normal [facility] 30 Normal [facility] APTTon 02-25-2025 aPTT Coag (Bld) [Time] 48.2 s High 20.0-30.5 [facility] Comment on above: Result Comment: ARPAN Kapaln COMMENTS:NOTE: The therapeutic time for Heparin anticoagulation, based on Xa activity inhibition, is an APTT of 46-80 seconds. Performed By: #### L AB325, [id number] ####Loss Prevention Associate: DOMENICA JARA ([id number])[facility])[address] [place] [address] aPTT Coag (Bld) [Time] 49.5 s High 20.0-30.5 [facility] Comment on above: Result Comment: ARPAN Kaplan COMMENTS:NOTE: The therapeutic time for Heparin anticoagulation, based on Xa activity inhibition, is an APTT of 46-80 seconds. Performed By: #### L AB320, [id number] ####Loss Prevention Associate: DOMENICA JARA ([id number])[facility] ([facility])[address] [place] [address] CBC (HEMOGRAM)on 02-25-2025 Erythrocyte distribution width (RBC) [Ratio] 19.9 % High 11.5-15.0 [facility] Comment on above: Performed By: #### L [id number] ####Loss Prevention Associate: DOMENICA JARA ([id number])[facility] ([facility])[address] [place] [address] Hematocrit (Bld) [Volume fraction] 24.1 % Low 40.0-52.0 [facility] Comment on above: Performed By: #### L [id number] ####Loss Prevention Associate: DOMENICA JARA ([id number])[facility])[address] [place] [address] Hemoglobin (Bld) [Mass/Vol] 7.6 g/dL Low 13.0-18.0 [facility] Comment on above: Performed By: #### L [id number] ####Loss Prevention Associate: DOMENICA JARA ([id number])[facility] ([facility])[address] [place] [address] MCH (RBC) [Entitic mass] 29.3 pg Normal 26.0-34.0 [facility] Comment on above: Performed By: #### L [id number] ####Loss Prevention Associate: DOMENICA JARA ([id number])[facility])[address] [place] [address] MCHC 31.5 % Normal 30.5-36.0 [facility] Comment on above: Performed By: #### L [id number] ####Loss Prevention Associate: DOMENICA JARA ([id number])[facility] ([facility])[address] [place] [address] MCV (RBC) [Entitic vol] 93.1 fL Normal 77.0-99.0 [facility] Comment on above: Performed By: #### L [id number] ####Loss Prevention Associate: DOMEINCA JARA ([id number])[facility])[address] [place] [address] Platelet mean volume (Bld) [Entitic vol] 8.9 fL Low 9.0-12.7 [facility] Comment on above: Performed By: #### L [id number] ####Loss Prevention Associate: DOMENICA JARA ([id number])[facility])[address] [place] [address] Platelets (Bld) [#/Vol] 280 10*3/uL Normal 140-440 [facility] Comment on above: Performed By: #### L [id number] ####Loss Prevention Associate: DOMENICA JARA ([id number])[facility] ([facility])[address] [place] [address] RBC (Bld) [#/Vol] 2.59 10*6/uL Low 4.40-5.90 [facility] Comment on above: Performed By: #### L [id number] ####Loss Prevention Associate: DOMENICA JARA ([id number])[facility] ([facility])[address] [place] [address] WBC (Bld) [#/Vol] 7.5 10*3/uL Normal 3.6-10.7 [facility] Comment on above: Performed By: #### L [id number] ####Loss Prevention Associate: DOMENICA JARA ([id number])[facility] ([facility])[address] [place] [address] CBC panel Auto (Bld)on 02-25 Erythrocyte distribution width (RBC) [Ratio] 19.9 % High 11.5 - 15.0 % [facility] Hematocrit (Bld) [Volume fraction] 24.1 % Low 40.0 - 52.0 % [facility] Hemoglobin (Bld) [Mass/Vol] 7.6 g/dL Low 13.0 - 18.0 g/dL [facility] Interpretation and review of laboratory results Abnormal [facility] MCH (RBC) [Entitic mass] 29.3 pg 26. 0 - 34.0 pg [facility] MCHC (RBC) [Mass/Vol] 31.5 % 30.5 - 36.0 % [facility] MCV (RBC) [Entitic vol] 93.1 fL 77.0 - 99.0 fL [facility] Platelet mean volume (Bld) [Entitic vol] 8.9 fL Low 9.0 - 12.7 fL [facility] Platelets (Bld) [#/Vol] 280 10*3/uL 140 - 440 10*3/uL [facility] RBC (Bld) [#/Vol] 2.59 10*6/uL Low 4.40 - 5.9 0 10*6/uL [facility] WBC (Bld) [#/Vol] 7.5 10*3/uL 3.6 - 10.7 10*3/uL [facility] HIGH SENSITIVITY TROPONIN, S ERIAL BASELINEon 02-25-2025 TROPONIN HS SERIAL BASELINE 84 ng/L High <=35 [facility] Comment on above: Result Comment: In i ndividuals presenting with symptoms > 2h, a baseline troponin <= 5 ng/L suggests acutecardiac injury is unlikely and further serial testing is generally not indicated. Performed By: #### L [id number] ####Loss Prevention Associate: DOMENICA JARA ([id number])[facility] ([facility])[address] [place] [address] Laboratory - Coagulationon 0 02-25-2025 PT Coag (Bld) [Time] 13.7 s High 9.0 - 12.0 s [facility] No Panel Informationon 02-25 Interpretation and review of laboratory results Abnormal [facility] Nursing Noteon 02-25-2025 Nursing Note 2322- Notified Dr. Hathaway of patient complaint of SOB and worsening chest pain that he described as dull and tight. Vitals WDL. STAT EKG ordered, patient given Nitrostat, and troponin sent down. 2330- Notified TRACK LAYING SUPERVISOR to assess the patient. Normal [facility] PROTHROMBIN TIMEon INR Coag (PPP) [Relative time] 1.3 {INR} High 0.9-1.1 [facility] Comment on above: Result Comment: Vaughn [...] Myocardial Infarction Performed By: #### L AB325, [id number] ####Loss Prevention Associate: DOMENICA JARA ([id number])[facility] ([facility])[address] [place] [address] PT Coag (PPP) [Time] 13.5 s High 9.0-12.0 [facility] Comment on above: Performed By: #### L AB325, [id number] ####Loss Prevention Associate: DOMENICA JARA ([id number])[address] INR Coag (PPP) [Relative time] 1.3 {INR} High 0.9-1.1 [facility] Comment on above: Result Comment: Vaughn [...] Myocardial Infarction Performed By: #### Tameka AB320, [id number] ####Loss Prevention Associate: DOMENICA JARA ([id number])[address] PT Coag (PPP) [Time] 13.7 s High 9.0-12.0 [facility] Comment on above: Performed By: #### Tameka AB320, [id number] ####Loss Prevention Associate: DOMENICA JARA ([id number])[address] PT Coag (Bld) [Time]on 02-25 INR Coag (PPP) [Relative time] 1.3 {INR} High 0.9 - 1.1 [facility] Progress Noteon 02-25-2025 Progress Note Normal [facility] Progress Note Normal [facility] Progress Note Normal [facility] Progress Note Normal [facility] aPTT Coag (Bld) [Time]on aPTT Coag (PPP) [Time] 49.5 s High 20.0 - 30.5 s [facility] 30on 02-24-2025 30 Normal [facility] 30 Normal [facility] APTTon 05-31-2025 aPTT Coag (Bld) [Time] 54.7 s High 20.0-30.5 [facility] Comment on above: Result Comment: ARPAN Kaplan COMMENTS:NOTE: The therapeutic time for Heparin anticoagulation, based on Xa activity inhibition, is an APTT of 46-80 seconds. Performed By: #### L AB325 ####Loss Prevention Associate: DOMENICA JARA ([id number])[facility] ([facility])[address] [place] [address] aPTT Coag (Bld) [Time] 61.0 s High 20.0-30.5 [facility] Comment on above: Result Comment: ARPAN Kaplan COMMENTS:NOTE: The therapeutic time for Heparin anticoagulation, based on Xa activity inhibition, is an APTT of 46-80 seconds. Performed By: #### L AB320, [id number] ####Loss Prevention Associate: DOMENICA JARA ([id number])[address] Bacteria identified Aer cx N om (Lower resp)Ordered By: Corey Pabon on 02-24-2025 Gram Stain Result Many Polymorphonuclear leukocytes per low power field Abnormal [facility] Gram Stain Result Few Epithelial cells per low power field Abnormal [facility] Gram Stain Result Positive Abnormal [facility] Gram Stain Result Negative Abnormal [facility] Gram Stain Result Few Yeast Abnormal [facility] Interpretation and review of laboratory results Abnormal [facility] HBV surface Ab IA Qnon 02-24 [facility] HBV surface Ag IA Qlon 02-24 Interpretation and review of laboratory results Normal [facility] HEPATITIS B SURFACE ANTIBODY on 02-24-2025 HEPATITIS B VIRUS SURFACE AB <8.0 Normal [facility] Comment on above: Result Comment: ARPAN Kaplan COMMENTS:Interpretation:<8.0 Non-Reactive8.0-11.9 Equivocal>= 12.0 Ab DetectedNote: If an equivocal result is interpreted, an antibody status is unable to be determined. Collect new specimen if clinically indicated. Performed By: #### L AB472, [id number] ####Loss Prevention Associate: DOMENICA JARA ([id number])[address] HEPATITIS B SURFACE ANTIGENo n 02-24-2025 HEPATITIS B VIRUS SURFACE AG Not detected Normal Not Detected [facility] Comment on above: Performed By: #### L AB472, [id number] ####Loss Prevention Associate: DOMENICA JARA ([id number])[facility] ([facility])[address] [place] [address] Laboratory - Coagulationon 0 02-24-2025 PT Coag (Bld) [Time] 13.5 s High 9.0 - 12.0 s [facility] Laboratory - Drug toxicology on 02-24-2025 Vancomycin trough [Mass/Vol] 23.4 ug/mL [facility] Laboratory - Microbiology an d Antimicrobial susceptibilityon 02-24-2025 HBV surface Ab IA Qn mIU/mL [facility] HBV surface Ag IA Ql Not detected Not Detected [facility] Laboratory - Microbiology an d Antimicrobial susceptibilityOrdered By: Corey Pabon on 02-24-2025 Bacteria identified Aer cx Nom (Lower resp) Few respiratory ila present. [facility] Bacteria identified Aer cx Nom (Lower resp) Moderate Klebsiella oxytoca Abnormal [facility] No Panel Informationon 02-24 [facility] Interpretation and review of laboratory results Abnormal [facility] Nursing Noteon 02-24-2025 Nursing Note Normal [facility] PROTHROMBIN TIMEon INR Coag (PPP) [Relative time] 1.3 {INR} High 0.9-1.1 [facility] Comment on above: Result Comment: Vaughn [...] Myocardial Infarction Performed By: #### L AB320, [id number] ####Loss Prevention Associate: DOMENICA JARA ([id number])[facility] ([facility])[address] [place] [address] PT Coag (PPP) [Time] 13.5 s High 9.0-12.0 [facility] Comment on above: Performed By: #### L AB320, [id number] ####Loss Prevention Associate: DOMENICA JARA ([id number])[facility] ([facility])[address] [place] [address] PT Coag (Bld) [Time]on 02-24 INR Coag (PPP) [Relative time] 1.3 {INR} High 0.9 - 1.1 [facility] Progress Noteon 02-24-2025 Progress Note Vancomycin therapy has been discontinued by Hussain Quintana on 02/24. Thank you for the consult. Pharmacy signing off for vancomycin dosing. Marissa Iglesias, PharmD, Date: 02/24/25 Time: 4:08 PM Normal [facility] Progress Note Normal [facility] Progress Note Normal [facility] Progress Note Normal [facility] Progress Note Normal [facility] VANCOMYCIN, AUC TIMED DOSING on 02-24-2025 VANCOMYCIN, AUC 23.4 ug/mL Normal [facility] Comment on above: Result Comment: TRAVISE R COMMENTS:Please draw random level at least >4 hours after the end of hemodialysis.Toxicity is seen at concentrations >80-100 ug/mLTherapeutic (Peak) range: 20-40Therapeutic (Trough) range: 5-10 Performed By: #### L AB39 ####Loss Prevention Associate: DOMENICA JARA ([id number])[facility] ([facility])[address] [place] [address] Vancomycin trough [Mass/Vol] on 02-24-2025 [facility] aPTT Coag (Bld) [Time]on aPTT Coag (PPP) [Time] 54.7 s High 20.0 - 30.5 s [facility] Interpretation and review of laboratory results Abnormal [facility] aPTT Coag (PPP) [Time] 61 s High 20.0 - 30.5 s [facility] [id number] 02-23-2025 [id number] Normal [facility] 36on 02-23-2025 36 Called to call back and schedule CT and hospital follow up with any ARMIN Normal [facility] 36 Hello, can we please schedule a 6-week CT scan for this patient and a follow-up appointment after this? Thank you Normal [facility] APTTon 02-23-2025 aPTT Coag (Bld) [Time] 49.3 s High 20.0-30.5 [facility] Comment on above: Result Comment: ARPAN Kaplan COMMENTS:NOTE: The therapeutic time for Heparin anticoagulation, based on Xa activity inhibition, is an APTT of 46-80 seconds. Performed By: #### L AB325, [id number] ####Loss Prevention Associate: DOMENICA JARA ([id number])[facility])[address] [place] [address] CBC (HEMOGRAM)on 02-23-2025 Erythrocyte distribution width (RBC) [Ratio] 19.7 % High 11.5-15.0 [facility] Comment on above: Performed By: #### L [id number] ####Loss Prevention Associate: DOMENICA JARA ([id number])[facility] ([facility])[address] [place] [address] Hematocrit (Bld) [Volume fraction] 27.9 % Low 40.0-52.0 [facility] Comment on above: Performed By: #### L [id number] ####Loss Prevention Associate: DOMENICA JARA ([id number])[address] Hemoglobin (Bld) [Mass/Vol] 8.6 g/dL Low 13.0-18.0 [facility] Comment on above: Performed By: #### L AB294 ####Loss Prevention Associate: DOMENICA JARA ([id number])[facility])[address] [place] [address] MCH (RBC) [Entitic mass] 28.7 pg Normal 26.0-34.0 [facility] Comment on above: Performed By: #### L AB294 ####Loss Prevention Associate: DOMENICA [id number])[facility])[address] [place] [address] MCHC 30.8 % Normal 30.5-36.0 [facility] Comment on above: Performed By: #### L AB294 ####Loss Prevention Associate: DOMENICA JARA ([id number])[facility] ([facility])[address] [place] [address] MCV (RBC) [Entitic vol] 93.0 fL Normal 77.0-99.0 [facility] Comment on above: Performed By: #### L AB294 ####Loss Prevention Associate: DOMENICA JARA ([id number])[facility])[address] [place] [address] Platelet mean volume (Bld) [Entitic vol] 8.9 fL Low 9.0-12.7 [facility] Comment on above: Performed By: #### L AB294 ####Loss Prevention Associate: DOMENICA JARA ([id number])[facility] ([facility])[address] [place] [address] Platelets (Bld) [#/Vol] 316 10*3/uL Normal 140-440 [facility] Comment on above: Performed By: #### L AB294 ####Loss Prevention Associate: DOMENICA JARA ([id number])[facility] ([facility])[address] [place] [address] RBC (Bld) [#/Vol] 3.00 10*6/uL Low 4.40-5.90 [facility] Comment on above: Performed By: #### L AB294 ####Loss Prevention Associate: DOMENICA JARA ([id number])[facility])[address] [place] [address] WBC (Bld) [#/Vol] 8.6 10*3/uL Normal 3.6-10.7 [facility] Comment on above: Performed By: #### L AB294 ####Loss Prevention Associate: DOMENICA JARA ([id number])[facility] ([facility])[address] [place] [address] CBC panel Auto (Bld)on 02-23 Erythrocyte distribution width (RBC) [Ratio] 19.7 % High 11.5 - 15.0 % [facility] Hematocrit (Bld) [Volume fraction] 27.9 % Low 40.0 - 52.0 % [facility] Hemoglobin (Bld) [Mass/Vol] 8.6 g/dL Low 13.0 - 18.0 g/dL [facility] Interpretation and review of laboratory results Abnormal [facility] MCH (RBC) [Entitic mass] 28.7 pg 26. 0 - 34.0 pg [facility] MCHC (RBC) [Mass/Vol] 30.8 % 30.5 - 36.0 % [facility] MCV (RBC) [Entitic vol] 93 fL 77.0 - 99.0 fL [facility] Platelet mean volume (Bld) [Entitic vol] 8.9 fL Low 9.0 - 12.7 fL [facility] Platelets (Bld) [#/Vol] 316 10*3/uL 140 - 440 10*3/uL [facility] RBC (Bld) [#/Vol] 3 10*6/uL Low 4.40 - 5.9 0 10*6/uL [facility] WBC (Bld) [#/Vol] 8.6 10*3/uL 3.6 - 10.7 10*3/uL [facility] COMPREHENSIVE METABOLIC PANE Victor M 02-23-2025 Albumin [Mass/Vol] 1.9 g/dL Low 3.5-5.0 [facility] Comment on above: Performed By: #### L AB113, LAB17, [id number] ####Loss Prevention Associate: DOMENICA JARA ([id number])[facility])[address] [place] [address] ALP [Catalytic activity/Vol] 136 U/L Normal 40-150 [facility] Comment on above: Performed By: #### L AB113, LAB17, [id number] ####Loss Prevention Associate: DOMENICA JARA ([id number])[facility])[address] [place] [address] ALT [Catalytic activity/Vol] 10 U/L Normal <40 [facility] Comment on above: Performed By: #### L AB113, LAB17, [id number] ####Loss Prevention Associate: DOMENICA JARA ([id number])[facility] [place] [address] Anion gap [Moles/Vol] 11 mmol/L Normal 3-13 [facility] Comment on above: Performed By: #### L AB113, LAB17, [id number] ####Loss Prevention Associate: DOMENICA JARA ([id number])[facility] ([facility])[address] [place] [address] AST [Catalytic activity/Vol] 37 U/L High <34 [facility] Comment on above: Performed By: #### Tameka ABAruna, LAB17, [id number] ####Loss Prevention Associate: DOMENICA JARA ([id number])[facility] ([facility])[address] [place] [address] Bilirubin [Mass/Vol] 0.6 mg/dL Normal <1.2 [facility] Comment on above: Performed By: #### Tameka ABAruna, LAB17, [id number] ####Loss Prevention Associate: DOMENICA JARA ([id number])[facility] ([facility])[address] [place] [address] Calcium [Mass/Vol] 9.2 mg/dL Normal 8.4-10.2 [facility] Comment on above: Performed By: #### L AB113, LAB17, [id number] ####Loss Prevention Associate: DOMENICA JARA ([id number])[facility] [place] [address] [place] Chloride [Moles/Vol] 99 mmol/L Normal 98-107 [facility] Comment on above: Performed By: #### L AB113, LAB17, [id number] ####Loss Prevention Associate: DOMENICA JARA ([id number])[facility] ([facility])[address] [place] [address] [place] CO2 [Moles/Vol] 25 mmol/L Normal 22-29 [facility] Comment on above: Performed By: #### L AB113, LAB17, [id number] ####Loss Prevention Associate: DOMENICA JARA ([id number])[facility] [place] [address] Creatinine [Mass/Vol] 2.78 mg/dL High 0.72-1.25 [facility] Comment on above: Performed By: #### L AB113, LAB17, [id number] ####Loss Prevention Associate: DOMENICA JARA ([id number])[facility] ([facility])[address] [place] [address] [place] GLOMERULAR FILTRATION RATE ML/MIN/1.73 SQ M.PREDICTED 25.4 mL/min/1.73m*2 Low >60.0 [facility] Comment on above: Result Comment: Calc ulation based on the Chronic Kidney Disease Epidemiology Collaboration (CKD-EPI) equation refit without adjustment for race Performed By: #### L AB113, LAB17, [id number] ####Loss Prevention Associate: DOMENICA JARA ([id number])[facility])[address] [place] [address] Glucose [Mass/Vol] 110 mg/dL High 74-100 [facility] Comment on above: Performed By: #### Tameka AB113, LAB17, [id number] ####Loss Prevention Associate: DOMENICA JARA ([id number])[facility])[address] [place] [address] Potassium [Moles/Vol] 4.1 mmol/L Normal 3.5-5.1 [facility] Comment on above: Result Comment: [facility] potassium values may be up to 0.5 mmol/L lower than serum values. Performed By: #### L AB113, LAB17, [id number] ####Loss Prevention Associate: DOMENICA JARA ([id number])[facility] ([facility])[address] [place] [address] Protein [Mass/Vol] 7.1 g/dL Normal 6.4-8.3 [facility] Comment on above: Performed By: #### L AB113, LAB17, [id number] ####Loss Prevention Associate: DOMENICA JARA ([id number])[facility])[address] [place] [address] [place] Sodium [Moles/Vol] 135 mmol/L Low 136-145 [facility] Comment on above: Performed By: #### L AB113, LAB17, [id number] ####Loss Prevention Associate: DOMENICA JARA ([id number])[facility] ([facility])[address] [place] [address] Urea nitrogen [Mass/Vol] 21 mg/dL Normal 9-23 [facility] Comment on above: Performed By: #### L AB113, LAB17, [id number] ####Loss Prevention Associate: DOMENICA JARA ([id number])[facility] [place] [address] Comprehensive metabolic 1998 panelOrdered By: Jarred José on 02-23-2025 Albumin [Mass/Vol] 1.9 g/dL Low 3.5 - 5.0 g/dL [facility] ALP [Catalytic activity/Vol] 136 U/L 40 - 150 U/L [facility] ALT [Catalytic activity/Vol] 10 U/L NINF - 40 U/L [facility] Anion gap [Moles/Vol] 11 mmol/L 3 - 13 mmol/L [facility] AST [Catalytic activity/Vol] 37 U/L High NINF - 34 U/L [facility] Bilirubin [Mass/Vol] 0.6 mg/dL NINF - 1.2 mg/dL [facility] Calcium [Mass/Vol] 9.2 mg/dL 8.4 - 10. 2 mg/dL [facility] Chloride [Moles/Vol] 99 mmol/L 98 - 10 7 mmol/L [facility] CO2 [Moles/Vol] 25 mmol/L 22 - 29 mmol/L [facility] Creatinine [Mass/Vol] 2.78 mg/dL High 0.72 - 1.25 mg/dL [facility] GFR/1.73 sq M.predicted (S/P/Bld) [Vol rate/Area] 25.4 mL/min Low - PINF [facility] Glucose [Mass/Vol] 110 mg/dL High 74 - 100 mg/dL [facility] Interpretation and review of laboratory results Abnormal [facility] Potassium [Moles/Vol] 4.1 mmol/L 3.5 - 5.1 mmol/L [facility] Protein [Mass/Vol] 7.1 g/dL 6.4 - 8.3 g/dL [facility] Sodium [Moles/Vol] 135 mmol/L Low 136 - 145 mmol/L [facility] Urea nitrogen [Mass/Vol] 21 mg/dL 9 - 23 mg/d L [facility] Consulton 02-23-2025 Consult Normal [facility] Laboratory - Chemistry and C hemistry - challengeon 02-23-2025 Magnesium [Mass/Vol] 2 mg/dL 1.6 - 2 .6 mg/dL [facility] Laboratory - Coagulationon 0 02-23-2025 PT Coag (Bld) [Time] 14 s High 9.0 - 12.0 s [facility] MAGNESIUMon 02-23-2025 Magnesium [Mass/Vol] 2.0 mg/dL Normal 1.6-2.6 [facility] Comment on above: Result Comment: ARPAN Kaplan COMMENTS:Higher values can be expected in females during menses. Performed By: #### L AB113, LAB17, [id number] ####Loss Prevention Associate: DOMENICA JARA ([id number])[facility] ([facility])[address] [place] [address] Magnesium [Mass/Vol]on 02-23 [facility] No Panel Informationon 02-23 Interpretation and review of laboratory results Normal [facility] Interpretation and review of laboratory results Abnormal [facility] Nursing Noteon 02-23-2025 Nursing Note Normal [facility] Nursing Note Normal [facility] PHOSPHORUSon 02-23-2025 Phosphate [Mass/Vol] 2.6 mg/dL Normal 2.3-4.7 [facility] Comment on above: Performed By: #### L AB113, LAB17, [id number] ####Loss Prevention Associate: DOMENICA AJRA ([id number])[facility] ([facility])[address] [place] [address] PROTHROMBIN TIMEon INR Coag (PPP) [Relative time] 1.3 {INR} High 0.9-1.1 [facility] Comment on above: Result Comment: Vaughn [...] Myocardial Infarction Performed By: #### L AB325, [id number] ####Loss Prevention Associate: DOMENICA JARA ([id number])[facility] ([facility])[address] [place] [address] PT Coag (PPP) [Time] 14.0 s High 9.0-12.0 [facility] Comment on above: Performed By: #### L AB325, [id number] ####Loss Prevention Associate: DOMENICA JARA ([id number])[facility] ([facility])[address] [place] [address] PT Coag (Bld) [Time]on 02-23 INR Coag (PPP) [Relative time] 1.3 {INR} High 0.9 - 1.1 [facility] Phosphate [Moles/Vol]on 01-27 Phosphate [Mass/Vol] 2.6 mg/dL 2.3 - 4 .7 mg/dL [facility] Progress Noteon 02-23-2025 Progress Note Normal [facility] Progress Note Normal [facility] Progress [facility] Normal [facility] Progress [facility] Normal [facility] Progress Note Normal [facility] Progress Note Normal [facility] US Heart TransthoracicOrdere d By: Daryn Chowdary on 02-23-2025 Aortic valve Mean systole pressure gradient by US.doppler derived full Bernoulli 10 mmHg [facility] Work Phone: Aortic valve Orifice area by US 3.1 cm2 [facility] [employer] Work Phone: Aortic valve Peak systolic flow by US.doppler 1.4 m/s [facility] [employer] Phone: Ascending Aorta 3.5 cm [facility] Work Phone: Ascending Aorta Index 1.99 cm/m2 [facility] Work Phone: AV Area by Peak Velocity 1.3 cm2 [facility] Work Phone: AV Area by VTI 1.5 cm2 [facility] Work Phone: AV AT 66.6 ms [facility] Work Phone: AV Peak Gradient 20 mmHg [facility] Work Phone: AV Peak Velocity 2.3 m/s [facility] Work Phone: AV Velocity Ratio 0.39 [facility] Work Phone: AV VTI 39.1 cm [facility] Work Phone: MALU/BSA Peak Velocity 0.7 cm2/m2 [facility] Work Phone: MALU/BSA VTI 0.9 cm2/m2 [facility] Work Phone: E/E' Lateral 21.43 [facility] Work Phone: E/E' Ratio (Averaged) 25.71 [facility] Work Phone: E/E' Septal 30 [facility] Work Phone: Est. RA Pressure 15 mmHg [facility] Work Phone: Fractional Shortening 2D 31 % 28 - 44 % [facility] Work Phone: Interpretation and review of laboratory results Abnormal [facility] Work Phone: IVC Diameter 2.5 cm [facility] Work Phone: IVSd 1.6 cm Abnormal 0.6 - 1.0 cm [facility] Work Phone: LA Diameter 3.1 cm [facility] Work Phone: LA Size Index 1.76 cm/m2 [facility] Work Phone: LA Volume 2C 69 mL Abnormal 18 - 58 mL [facility] Work Phone: LA Volume 4C 84 mL Abnormal 18 - 58 mL [facility] Work Phone: LA Volume A/L 85 [...] 2D 201 g 88 - 224 g [facility] Work Phone: LV Mass 2D Index 114.2 g/m2 49 - 115 g/m2 [facility] Work Phone: LV RWT Ratio 0.78 [facility] Work Phone: LVIDd 3.6 cm Abnormal 4.2 - 5.9 cm [facility] Work Phone: LVIDd Index 2.05 cm/m2 [facility] Work Phone: LVIDs 2.5 cm [facility] Work Phone: LVIDs Index 1.42 cm/m2 [facility] Work Phone: LVOT Cardiac Output 5.3 liter/minute [facility] Work Phone: LVOT Diameter 2 cm [facility] Work Phone: LVOT Mean Gradient 2 mmHg [facility] Work Phone: LVOT Peak Gradient 3 mmHg [facility] Work Phone: LVOT Peak Velocity 0.9 m/s [facility] Work Phone: LVOT Stroke Volume Index 33.4 mL/m2 [facility] Work Phone: LVOT SV 58.7 ml [facility] Work Phone: LVOT VTI 18.7 cm [facility] Work Phone: LVOT:AV VTI Index 0.48 [facility] Work Phone: LVPWd 1.4 cm Abnormal 0.6 - 1.0 cm [facility] Work Phone: MV A Velocity 0.97 m/s [facility] Work Phone: MV Area by PHT 3 cm2 [facility] Work Phone: MV Area by VTI 1.3 cm2 [facility] Work Phone: MV E Velocity 1.5 m/s [facility] Work Phone: MV E Wave Deceleration Time 250.1 ms [facility] Work Phone: MV E/A 1.55 [facility] Work Phone: MV Max Velocity 2 m/s [facility] Work Phone: MV Mean Gradient 7 mmHg [facility] Work Phone: MV Mean Velocity 1.2 m/s [facility] Work Phone: MV Peak Gradient 16 mmHg [facility] Work Phone: MV PHT 73.9 ms [facility] Work Phone: MV VTI 44.1 cm [facility] Work Phone: MV:LVOT VTI Index 2.36 [facility] Work Phone: PV Max Velocity 1.2 m/s [facility] Work Phone: PV Mean Gradient 3 mmHg [facility] Work Phone: [phone] PV Mean Velocity 0.8 m/s [facility] [...] [facility] Work Phone: US Heart Transthoracicon [facility] aPTT Coag (Bld) [Time]on aPTT Coag (PPP) [Time] 49.3 s High 20.0 - 30.5 s [facility] 30on 02-22-2025 30 Normal [facility] [id number] 02-22-2025 [id number] Normal [facility] [id number] Updated notes sent to [facility] [place] [facility] [place] via [facility] per TCC request. Await review and response regarding ability to accept. TCC notified. Normal [facility] APTTon 02-22-2025 aPTT Coag (Bld) [Time] 52.1 s High 20.0-30.5 [facility] Comment on above: Result Comment: ORDE R COMMENTS:NOTE: The therapeutic time for Heparin anticoagulation, based on Xa activity inhibition, is an APTT of 46-80 seconds. Performed By: #### L AB325 ####Loss Prevention Associate: DOMENICA JARA ([id number])[address] aPTT Coag (Bld) [Time] 54.9 s High 20.0-30.5 [facility] Comment on above: Result Comment: ARPAN Kaplan COMMENTS:NOTE: The therapeutic time for Heparin anticoagulation, based on Xa activity inhibition, is an APTT of 46-80 seconds. Performed By: #### L AB325, [id number] ####Loss Prevention Associate: DOMENICA JARA ([id number])[address] BLOOD CULTUREon 02-22-2025 Bacteria identified Cx Nom (Bld) Normal [facility] Comment on above: Performed By: #### L [id number] ####Loss Prevention Associate: DOMENICA JARA ([id number])[address] Bacteria identified Cx Nom (Bld) Normal [facility] Comment on above: Performed By: #### L AB462 ####Loss Prevention Associate: DOMENICA JARA ([id number])[address] CBC (HEMOGRAM)on 02-22-2025 Erythrocyte distribution width (RBC) [Ratio] 19.4 % High 11.5-15.0 [facility] Comment on above: Performed By: #### L AB294 ####Loss Prevention Associate: DOMENICA JARA ([id number])[address] Hematocrit (Bld) [Volume fraction] 24.5 % Low 40.0-52.0 [facility] Comment on above: Performed By: #### L [id number] ####Loss Prevention Associate: DOMENICA [id number])[facility] ([facility])[address] [place] [address] Hemoglobin (Bld) [Mass/Vol] 7.8 g/dL Low 13.0-18.0 [facility] Comment on above: Performed By: #### L AB294 ####Loss Prevention Associate: DOMENICA JARA ([id number])[facility])[address] [place] [address] MCH (RBC) [Entitic mass] 29.0 pg Normal 26.0-34.0 [facility] Comment on above: Performed By: #### L AB294 ####Loss Prevention Associate: DOMENICA JARA ([id number])[facility])[address] [place] [address] MCHC 31.8 % Normal 30.5-36.0 [facility] Comment on above: Performed By: #### L [id number] ####Loss Prevention Associate: DOMENICA JARA ([id number])[facility])[address] [place] [address] MCV (RBC) [Entitic vol] 91.1 fL Normal 77.0-99.0 [facility] Comment on above: Performed By: #### L [id number] ####Loss Prevention Associate: DOMENICA JARA ([id number])[facility])[address] [place] [address] Platelet mean volume (Bld) [Entitic vol] 8.9 fL Low 9.0-12.7 [facility] Comment on above: Performed By: #### L [id number] ####Loss Prevention Associate: DOMENICA JARA ([id number])[facility])[address] [place] [address] Platelets (Bld) [#/Vol] 282 10*3/uL Normal 140-440 [facility] Comment on above: Performed By: #### L [id number] ####Loss Prevention Associate: DOMENICA JARA ([id number])[facility])[address] [place] [address] RBC (Bld) [#/Vol] 2.69 10*6/uL Low 4.40-5.90 [facility] Comment on above: Performed By: #### L [id number] ####Loss Prevention Associate: DOMENICA JARA ([id number])[facility] ([facility])[address] [place] [address] WBC (Bld) [#/Vol] 9.0 10*3/uL Normal 3.6-10.7 [facility] Comment on above: Performed By: #### L [id number] ####Loss Prevention Associate: DOMENICA JARA ([id number])[facility] ([facility])[address] [place] [address] CBC panel Auto (Bld)on 02-22 Erythrocyte distribution width (RBC) [Ratio] 19.4 % High 11.5 - 15.0 % [facility] Hematocrit (Bld) [Volume fraction] 24.5 % Low 40.0 - 52.0 % [facility] Hemoglobin (Bld) [Mass/Vol] 7.8 g/dL Low 13.0 - 18.0 g/dL [facility] Interpretation and review of laboratory results Abnormal [facility] MCH (RBC) [Entitic mass] 29 pg 26. 0 - 34.0 pg [facility] MCHC (RBC) [Mass/Vol] 31.8 % 30.5 - 36.0 % [facility] MCV (RBC) [Entitic vol] 91.1 fL 77.0 - 99.0 fL [facility] Platelet mean volume (Bld) [Entitic vol] 8.9 fL Low 9.0 - 12.7 fL [facility] Platelets (Bld) [#/Vol] 282 10*3/uL 140 - 440 10*3/uL [facility] RBC (Bld) [#/Vol] 2.69 10*6/uL Low 4.40 - 5.9 0 10*6/uL [facility] WBC (Bld) [#/Vol] 9 10*3/uL 3.6 - 10.7 10*3/uL [facility] COMPREHENSIVE METABOLIC PANE Victor M 02-22-2025 Albumin [Mass/Vol] 1.8 g/dL Low 3.5-5.0 [facility] Comment on above: Performed By: #### L AB103, [id number], LAB17 ####Loss Prevention Associate: DOMENICA JARA ([id number])[facility] [place] [address] ALP [Catalytic activity/Vol] 120 U/L Normal 40-150 [facility] Comment on above: Performed By: #### L AB103, [id number], LAB17 ####Loss Prevention Associate: DOMENICA JARA ([id number])[facility] ([facility])[address] [place] [address] ALT [Catalytic activity/Vol] 9 U/L Normal <40 [facility] Comment on above: Performed By: #### Tameka AB103, [id number], LAB17 ####Loss Prevention Associate: DOMENICA JARA ([id number])[facility] ([facility])[address] [place] [address] Anion gap [Moles/Vol] 13 mmol/L Normal 3-13 [facility] Comment on above: Performed By: #### Tameka AB103, [id number], LAB17 ####Loss Prevention Associate: DOMENICA JARA ([id number])[facility] ([facility])[address] [place] [address] AST [Catalytic activity/Vol] 35 U/L High <34 [facility] Comment on above: Performed By: #### L AB103, [id number], LAB17 ####Loss Prevention Associate: DOMENICA JARA ([id number])[facility] ([facility])[address] [place] [address] Bilirubin [Mass/Vol] 0.6 mg/dL Normal <1.2 [facility] Comment on above: Performed By: #### L AB103, [id number], LAB17 ####Loss Prevention Associate: DOMENICA JARA ([id number])[facility])[address] [place] [address] Calcium [Mass/Vol] 9.2 mg/dL Normal 8.4-10.2 [facility] Comment on above: Performed By: #### L AB103, [id number], LAB17 ####Loss Prevention Associate: DOMENICA JARA ([id number])[facility] [place] [address] Chloride [Moles/Vol] 94 mmol/L Low 98-107 [facility] Comment on above: Performed By: #### L AB103, QSA030, LAB17 ####Loss Prevention Associate: DOMENICA JARA ([id number])[facility] ([facility])[address] [place] [address] CO2 [Moles/Vol] 25 mmol/L Normal 22-29 [facility] Comment on above: Performed By: #### L AB103, [id number], LAB17 ####Loss Prevention Associate: DOMENICA JARA ([id number])[facility])[address] [place] [address] Creatinine [Mass/Vol] 3.99 mg/dL High 0.72-1.25 [facility] Comment on above: Performed By: #### Tameka AB103, [id number], LAB17 ####Loss Prevention Associate: DOMENICA JARA ([id number])[facility] ([facility])[address] [place] [address] GLOMERULAR FILTRATION RATE ML/MIN/1.73 SQ M.PREDICTED 16.5 mL/min/1.73m*2 Low >60.0 [facility] Comment on above: Result Comment: Calc ulation based on the Chronic Kidney Disease Epidemiology Collaboration (CKD-EPI) equation refit without adjustment for race Performed By: #### L AB103, [id number], LAB17 ####Loss Prevention Associate: DOMENICA JARA ([id number])[facility] ([facility])[address] [place] [address] Glucose [Mass/Vol] 121 mg/dL High 74-100 [facility] Comment on above: Performed By: #### L AB103, [id number], LAB17 ####Loss Prevention Associate: DOMENICA JARA ([id number])[facility])[address] [place] [address] Potassium [Moles/Vol] 3.4 mmol/L Low 3.5-5.1 [facility] Comment on above: Result Comment: Plas ma potassium values may be up to 0.5 mmol/L lower than serum values. Performed By: #### L AB103, [id number], LAB17 ####Loss Prevention Associate: DOMENICA JARA ([id number])[facility])[address] [place] [address] Protein [Mass/Vol] 6.7 g/dL Normal 6.4-8.3 [facility] Comment on above: Performed By: #### L AB103, [id number], LAB17 ####Loss Prevention Associate: DOMENICA JARA ([id number])[facility] ([facility])[address] [place] [address] Sodium [Moles/Vol] 132 mmol/L Low 136-145 [facility] Comment on above: Performed By: #### L AB103, [id number], LAB17 ####Loss Prevention Associate: DOMENICA JARA ([id number])[facility] ([facility])[address] [place] [address] Urea nitrogen [Mass/Vol] 36 mg/dL High 9-23 [facility] Comment on above: Performed By: #### L AB103, [id number], LAB17 ####Loss Prevention Associate: DOMENICA JARA ([id number])[facility])[address] [place] [address] Comprehensive metabolic 1998 panelOrdered By: Michelle Olmstead on 02-22-2025 Albumin [Mass/Vol] 1.8 g/dL Low 3.5 - 5.0 g/dL [facility] ALP [Catalytic activity/Vol] 120 U/L 40 - 150 U/L [facility] ALT [Catalytic activity/Vol] 9 U/L NINF - 40 U/L [facility] Anion gap [Moles/Vol] 13 mmol/L 3 - 13 mmol/L [facility] AST [Catalytic activity/Vol] 35 U/L High NINF - 34 U/L [facility] Bilirubin [Mass/Vol] 0.6 mg/dL NINF - 1.2 mg/dL [facility] Calcium [Mass/Vol] 9.2 mg/dL 8.4 - 10. 2 mg/dL [facility] Chloride [Moles/Vol] 94 mmol/L Low 98 - 10 7 mmol/L [facility] CO2 [Moles/Vol] 25 mmol/L 22 - 29 mmol/L [facility] Creatinine [Mass/Vol] 3.99 mg/dL High 0.72 - 1.25 mg/dL [facility] GFR/1.73 sq M.predicted (S/P/Bld) [Vol rate/Area] 16.5 mL/min Low - PINF [facility] Glucose [Mass/Vol] 121 mg/dL High 74 - 100 mg/dL [facility] Interpretation and review of laboratory results Abnormal [facility] Potassium [Moles/Vol] 3.4 mmol/L Low 3.5 - 5.1 mmol/L [facility] Protein [Mass/Vol] 6.7 g/dL 6.4 - 8.3 g/dL [facility] Sodium [Moles/Vol] 132 mmol/L Low 136 - 145 mmol/L [facility] Urea nitrogen [Mass/Vol] 36 mg/dL High 9 - 23 mg/d L [facility] Consulton 02-22-2025 Consult Normal [facility] Consult Normal [facility] Consult Normal [facility] LEGIONELLA AND STREPTOCOCCUS URINE ANTIGENon 02-22-2025 LEGIONELLA AND STREPTOCOCCUS URINE ANTIGEN Normal [facility] Comment on above: Performed By: #### L [id number] ####Loss Prevention Associate: DOMENICA JARA ([id number])[facility] ([address] Laboratory - Chemistry and C hemistry - challengeon 02-22-2025 Magnesium [Mass/Vol] 2.2 mg/dL 1.6 - 2 .6 mg/dL [facility] Laboratory - Coagulationon 0 02-22-2025 PT Coag (Bld) [Time] 14.9 s High 9.0 - 12.0 s [facility] Laboratory - Drug toxicology on 02-22-2025 Vancomycin [Mass/Vol] 12.6 ug/mL [facility] MAGNESIUMon 02-22-2025 Magnesium [Mass/Vol] 2.2 mg/dL Normal 1.6-2.6 [facility] Comment on above: Result Comment: ORDE R COMMENTS:Higher values can be expected in females during menses. Performed By: #### L AB103, [id number], LAB17 ####Loss Prevention Associate: DOMENICA JARA ([id number])[facility] ([facility])[address] [place] [address] [place] MRSA BY PCRon 02-22-2025 MRSA BY PCR Normal [facility] Comment on above: Performed By: #### L [id number] ####Loss Prevention Associate: DOMENICA JARA ([id number])[facility] ([facility])[address] [place] [address] [place] MRSA DNA EMMANUEL+probe Ql (Nose) on 02-22-2025 Interpretation and review of laboratory results Normal [facility] mecA gene Not detected Not Detected [facility] Staphylococcus aureus Not detected Not Detected [facility] Magnesium [Mass/Vol]on 02-22 [facility] No Panel Informationon 02-22 [facility] Interpretation and review of laboratory results Normal [facility] Interpretation and review of laboratory results Abnormal [facility] No Panel InformationOrdered By: Lorin Bryant on 02-22-2025 Interpretation and review of laboratory results Normal [facility] Legionella pneumophila Ag Not detected Not Detected [facility] Streptococcus pneumoniae Ag Not detected Not Detected [facility] Nursing Noteon 02-22-2025 Nursing Note Pt keeps ordering door dash items. Have explained to pt on multiple occasions that staff cannot leave floor to get items and that it is after hours and door dashers most likely will not be allowed up onto the floors. Normal [facility] Nursing Note Normal [facility] Nursing Note Normal [facility] PHOSPHORUSon 02-22-2025 Phosphate [Mass/Vol] 3.2 mg/dL Normal 2.3-4.7 [facility] Comment on above: Performed By: #### L AB103, [id number], LAB17 ####Loss Prevention Associate: DOMENICA JARA ([id number])[facility] ([facility])[address] [place] [address] [place] PNEUMONIA PCR PANELon 2024 PNEUMONIA PCR PANEL Normal [facility] Comment on above: Performed By: #### L [id number] ####Loss Prevention Associate: DOMENICA JARA ([id number])[facility])[address] [place] [address] PROTHROMBIN TIMEon INR Coag (PPP) [Relative time] 1.4 {INR} High 0.9-1.1 [facility] Comment on above: Result Comment: Vaughn [...] Myocardial Infarction Performed By: #### L AB325, [id number] ####Loss Prevention Associate: DOMENICA JARA ([id number])[facility])[address] [place] [address] PT Coag (PPP) [Time] 14.9 s High 9.0-12.0 [facility] Comment on above: Performed By: #### L AB325, [id number] ####Loss Prevention Associate: DOMENICA JARA ([id number])[facility])[address] [place] [address] PT Coag (Bld) [Time]on 02-22 INR Coag (PPP) [Relative time] 1.4 {INR} High 0.9 - 1.1 [facility] Phosphate [Moles/Vol]on 01-26 Phosphate [Mass/Vol] 3.2 mg/dL 2.3 - 4 .7 mg/dL [facility] Progress Noteon 02-22-2025 Progress Note Normal [facility] Progress Note Normal [facility] Progress Note Normal [facility] Progress Note OCCUPATIONAL THERAPY [facility] Name/MRN: Jair Snyder ([id number]) Date: 02/22/2025 PT refusing to participate in therapy this AM, will continue to follow and re approach for OT eval. Ro Farnsworth, OT Normal [facility] Progress Note Normal [facility] Progress Note Normal [facility] RESPIRATORY CULTURE AND STAI Non 02-22-2025 RESPIRATORY CULTURE AND STAIN Normal [facility] Comment on above: Performed By: #### L [id number] ####Loss Prevention Associate: DOMENICA JARA ([id number])[facility] ([facility])[address] [place] [address] Respiratory pathogens DNA an d RNA panel EMMANUEL+non-probe (Lower resp)Ordered By: Odalys Bustamante on 02-22-2025 Acinetobacter baumannii complex Not detected Not Detected [facility] Adenovirus Not detected Not Detected [facility] Chlamydia pneumoniae Not detected Not Detected [facility] Enterobacter cloacae complex Not detected Not Detected [facility] Escherichia coli Not detected Not Detected [facility] FLUAV RNA EMMANUEL+non-probe Ql (Lower resp) Not detected Not Detected [facility] FLUBV RNA EMMANUEL+non-probe Ql (Lower resp) Not detected Not Detected [facility] Haemophilus influenzae Not detected Not Detecte d [facility] Metapneumovirus Not detected Not Detected [facility] Rhinovirus/Enterovirus Not detected Not Detected [facility] Interpretation and review of laboratory results Abnormal [facility] Klebsiella (Enterobacter) aerogenes Not detected Not Detected [facility] Klebsiella oxytoca Detected Abnormal Not Detected [facility] Klebsiella pneumoniae Not detected Not Detected [facility] Legionella pneumophila Not detected Not Detecte d [facility] mecA Not detected Not Detected [facility] Moraxella catarrhalis Not detected Not Detected [facility] Mycoplasma pneumoniae Not detected Not Detected [facility] Parainfluenza virus Not detected Not Detected [facility] Proteus spp Not detected Not Detected [facility] Pseudomonas aeruginosa Not detected Not Detecte d [facility] RSV RNA EMMANUEL+probe Ql (Resp) Not detected Not Detected [facility] S. agalactiae Org specific cx Ql (Vag fld) Not detected Not Detected [facility] ealt SARS-CoV-2 (COVID-19) RNA EMMANUEL+non-probe Ql (Nph) Not detected Not Detected [facility] Serratia marcescens Not detected Not Detected S [facility] Staphylococcus aureus Detected Abnormal Not Detected S [facility] Streptococcus pneumoniae Not detected Not Detec yo [facility] Streptococcus pyogenes Not detected Not Detecte d [facility] VANCOMYCIN, RANDOMon 025 VANCOMYCIN 12.6 ug/mL Normal [facility] Comment on above: Result Comment: ARPAN Kaplan COMMENTS:This level is ordered to be drawn 4 hours post- HD. ThanksToxicity is seen at concentrations >80-100 ug/mLTherapeutic (Peak) range: 20-40Therapeutic (Trough) range: 5-10 Performed By: #### L AB40 ####Loss Prevention Associate: DOMENICA JARA ([id number])[facility] ([facility])[address] [place] [address] aPTT Coag (Bld) [Time]on aPTT Coag (PPP) [Time] 52.1 s High 20.0 - 30.5 s [facility] Interpretation and review of laboratory results Abnormal [facility] aPTT Coag (PPP) [Time] 54.9 s High 20.0 - 30.5 s [facility] 30on 02-21-2025 30 Normal [facility] [id number] 02-21-2025 [id number] Has dialysis at facility, [facility]..Tiffanie campbell signed by Kaity Sepulveda RN on 02/21/2025 at 12:54 PM [facility] [id number] Normal [facility] 36on 02-21-2025 36 Normal [facility] APTTon 02-21-2025 aPTT Coag (Bld) [Time] 50.3 s High 20.0-30.5 [facility] Comment on above: Result Comment: ARPAN Kaplan COMMENTS:NOTE: The therapeutic time for Heparin anticoagulation, based on Xa activity inhibition, is an APTT of 46-80 seconds. Performed By: #### L AB325 ####Loss Prevention Associate: DOMENICA JARA ([id number])[facility] ([facility])[address] [place] [address] [place] aPTT Coag (Bld) [Time] 32.6 s High 20.0-30.5 [facility] Comment on above: Result Comment: ARPAN Kaplan COMMENTS:NOTE: The therapeutic time for Heparin anticoagulation, based on Xa activity inhibition, is an APTT of 46-80 seconds. Performed By: #### L AB325 ####Loss Prevention Associate: DOMENICA JARA ([id number])[facility] ([facility])[address] [place] [address] BLOOD TYPE AND SCREEN GELon 02-21-2025 ABO GROUPING O Normal [facility] Comment on above: Performed By: #### L AB276 ####Loss Prevention Associate: DOMENICA JARA ([id number])[facility] BLOOD B[facility] ([facility])[address] [place] [address] RH TYPE IN BLOOD Negative Normal [facility] Comment on above: Performed By: #### L AB276 ####Loss Prevention Associate: DOMENICA JARA ([id number])[facility] ([facility])[address] [place] [address] Blood type and Crossmatch pa freida (Bld)on 02-21-2025 ABO group Nom (Bld) O [facility] Blood group antibody screen GEL Ql Negative [facility] D Ag Ql (RBC) Negative [facility] h [facility] C-REACTIVE PROTEINon 025 CRP [Mass/Vol] 60.3 mg/L High <5.0 [facility] Comment on above: Performed By: #### L AB149, [id number], LAB17, [id number], [id number] ####Loss Prevention Associate: DOMENICA JARA ([id number])[facility])[address] [place] [address] CBC (HEMOGRAM)on 02-21-2025 Erythrocyte distribution width (RBC) [Ratio] 19.0 % High 11.5-15.0 [facility] Comment on above: Performed By: #### L AB294 ####Loss Prevention Associate: DOMENICA JARA ([id number])[facility])[address] [place] [address] Hematocrit (Bld) [Volume fraction] 25.7 % Low 40.0-52.0 [facility] Comment on above: Performed By: #### L AB294 ####Loss Prevention Associate: DOMENICA [id number])[facility])[address] [place] [address] Hemoglobin (Bld) [Mass/Vol] 8.3 g/dL Low 13.0-18.0 [facility] Comment on above: Performed By: #### L AB294 ####Loss Prevention Associate: DOMENICA JARA ([id number])[facility])[address] [place] [address] MCH (RBC) [Entitic mass] 29.0 pg Normal 26.0-34.0 [facility] Comment on above: Performed By: #### L AB294 ####Loss Prevention Associate: DOMENICA JARA ([id number])[facility])[address] [place] [address] MCHC 32.3 % Normal 30.5-36.0 [facility] Comment on above: Performed By: #### L AB294 ####Loss Prevention Associate: DOMENICA JARA ([id number])[facility] ([facility])[address] [place] [address] MCV (RBC) [Entitic vol] 89.9 fL Normal 77.0-99.0 [facility] Comment on above: Performed By: #### L AB294 ####Loss Prevention Associate: DOMENICA JARA ([id number])[facility])[address] [place] [address] Platelet mean volume (Bld) [Entitic vol] 8.9 fL Low 9.0-12.7 [facility] Comment on above: Performed By: #### L AB294 ####Loss Prevention Associate: DOMENICA JARA ([id number])[facility] ([facility])[address] [place] [address] [place] Platelets (Bld) [#/Vol] 316 10*3/uL Normal 140-440 [facility] Comment on above: Performed By: #### L AB294 ####Loss Prevention Associate: DOMENICA JARA ([id number])[facility])[address] [place] [address] RBC (Bld) [#/Vol] 2.86 10*6/uL Low 4.40-5.90 [facility] Comment on above: Performed By: #### L AB294 ####Loss Prevention Associate: DOMENICA JARA ([id number])[facility] ([facility])[address] [place] [address] WBC (Bld) [#/Vol] 7.0 10*3/uL Normal 3.6-10.7 [facility] Comment on above: Performed By: #### L AB294 ####Loss Prevention Associate: DOMENICA ASHLEYELIDA ([id number])[facility] ([facility])[address] [place] [address] CBC panel Auto (Bld)on 02-21 Erythrocyte distribution width (RBC) [Ratio] 19 % High 11.5 - 15.0 % [facility] Hematocrit (Bld) [Volume fraction] 25.7 % Low 40.0 - 52.0 % [facility] Hemoglobin (Bld) [Mass/Vol] 8.3 g/dL Low 13.0 - 18.0 g/dL [facility] Interpretation and review of laboratory results Abnormal [facility] MCH (RBC) [Entitic mass] 29 pg 26. 0 - 34.0 pg [facility] MCHC (RBC) [Mass/Vol] 32.3 % 30.5 - 36.0 % [facility] MCV (RBC) [Entitic vol] 89.9 fL 77.0 - 99.0 fL [facility] Platelet mean volume (Bld) [Entitic vol] 8.9 fL Low 9.0 - 12.7 fL [facility] Platelets (Bld) [#/Vol] 316 10*3/uL 140 - 440 10*3/uL [facility] RBC (Bld) [#/Vol] 2.86 10*6/uL Low 4.40 - 5.9 0 10*6/uL [facility] WBC (Bld) [#/Vol] 7 10*3/uL 3.6 - 10.7 10*3/uL [facility] COMPREHENSIVE METABOLIC PANE Victor M 02-21-2025 Albumin [Mass/Vol] 2.0 g/dL Low 3.5-5.0 [facility] Comment on above: Performed By: #### L AB149, [id number], LAB17, [id number], [id number] ####Loss Prevention Associate: DOMENICA JARA ([id number])[facility] ([facility])[address] [place] [address] ALP [Catalytic activity/Vol] 120 U/L Normal 40-150 [facility] Comment on above: Performed By: #### L AB149, [id number], LAB17, [id number], PZH368 ####Loss Prevention Associate: DOMENICA JARA ([id number])[facility] ([facility])[address] [place] [address] ALT [Catalytic activity/Vol] 8 U/L Normal <40 [facility] Comment on above: Performed By: #### L AB149, [id number], LAB17, FNH600, WUP214 ####Loss Prevention Associate: DOMENICA JARA ([id number])[facility] ([facility])[address] [place] [address] Anion gap [Moles/Vol] 12 mmol/L Normal 3-13 [facility] Comment on above: Performed By: #### L AB149, [id number], LAB17, AGB533, [id number] ####Loss Prevention Associate: DOMENICA JARA ([id number])[facility] ([facility])[address] [place] [address] AST [Catalytic activity/Vol] 39 U/L High <34 [facility] Comment on above: Performed By: #### L AB149, [id number], LAB17, ZHQ706, HCH463 ####Loss Prevention Associate: DOMENICA JARA ([id number])[facility] ([facility])[address] [place] [address] Bilirubin [Mass/Vol] 0.8 mg/dL Normal <1.2 [facility] Comment on above: Performed By: #### L AB149, [id number], LAB17, QFH120, APC746 ####Loss Prevention Associate: DOMENICA JARA ([id number])[facility] ([facility])[address] [place] [address] Calcium [Mass/Vol] 9.3 mg/dL Normal 8.4-10.2 [facility] Comment on above: Performed By: #### L AB149, [id number], LAB17, UNK438, QCR191 ####Loss Prevention Associate: DOMENICA JARA ([id number])[facility] ([facility])[address] [place] [address] Chloride [Moles/Vol] 91 mmol/L Low 98-107 [facility] Comment on above: Performed By: #### L AB149, [id number], LAB17, VMG376, GCB340 ####Loss Prevention Associate: DOMENICA JARA ([id number])[facility] ([facility])[address] [place] [address] CO2 [Moles/Vol] 28 mmol/L Normal 22-29 [facility] Comment on above: Performed By: #### L AB149, [id number], LAB17, MPR552, TBJ295 ####Loss Prevention Associate: DOMENICA JARA ([id number])[facility] ([facility])[address] [place] [address] Creatinine [Mass/Vol] 2.89 mg/dL High 0.72-1.25 [facility] Comment on above: Performed By: #### L AB149, [id number], LAB17, QPR708, ONR674 ####Loss Prevention Associate: DOMNEICA JARA ([id number])[facility] ([facility])[address] [place] [address] GLOMERULAR FILTRATION RATE ML/MIN/1.73 SQ M.PREDICTED 24.3 mL/min/1.73m*2 Low >60.0 [facility] Comment on above: Result Comment: Calc ulation based on the Chronic Kidney Disease Epidemiology Collaboration (CKD-EPI) equation refit without adjustment for race Performed By: #### L AB149, [id number], LAB17, NMC852, MWF191 ####Loss Prevention Associate: DOMENICA JARA ([id number])[facility])[address] [place] [address] Glucose [Mass/Vol] 74 mg/dL Normal 74-100 [facility] Comment on above: Performed By: #### L AB149, [id number], LAB17, WXK906, ZHA197 ####Loss Prevention Associate: DOMENICA JARA ([id number])[facility] ([facility])[address] [place] [address] Potassium [Moles/Vol] 3.1 mmol/L Low 3.5-5.1 [facility] Comment on above: Result Comment: [facility] potassium values may be up to 0.5 mmol/L lower than serum values. Performed By: #### L AB149, [id number], LAB17, IIG239, UKA874 ####Loss Prevention Associate: DOMENICA JARA ([id number])[facility] ([facility])[address] [place] [address] Protein [Mass/Vol] 6.8 g/dL Normal 6.4-8.3 [facility] Comment on above: Performed By: #### L AB149, [id number], LAB17, FHR182, UNT186 ####Loss Prevention Associate: DOMENICA JARA ([id number])[facility] [place] [address] Sodium [Moles/Vol] 131 mmol/L Low 136-145 [facility] Comment on above: Performed By: #### L AB149, [id number], LAB17, JPB435, IUJ689 ####Loss Prevention Associate: DOMENICA JARA ([id number])[facility] [place] [address] Urea nitrogen [Mass/Vol] 29 mg/dL High 9-23 [facility] Comment on above: Performed By: #### L AB149, [id number], LAB17, YQO987, DKG025 ####Loss Prevention Associate: DOMENICA JARA ([id number])[facility])[address] [place] [address] [place] CRP [Mass/Vol]on 02-21-2025 Interpretation and review of laboratory results Abnormal [facility] Comprehensive metabolic 1998 panelon 02-21-2025 Albumin [Mass/Vol] 2 g/dL Low 3.5 - 5.0 g/dL [facility] ALP [Catalytic activity/Vol] 120 U/L 40 - 150 U/L [facility] ALT [Catalytic activity/Vol] 8 U/L NINF - 40 U/L [facility] Anion gap [Moles/Vol] 12 mmol/L 3 - 13 mmol/L [facility] AST [Catalytic activity/Vol] 39 U/L High NINF - 34 U/L [facility] Bilirubin [Mass/Vol] 0.8 mg/dL NINF - 1.2 mg/dL [facility] Calcium [Mass/Vol] 9.3 mg/dL 8.4 - 10. 2 mg/dL [facility] Chloride [Moles/Vol] 91 mmol/L Low 98 - 10 7 mmol/L [facility] CO2 [Moles/Vol] 28 mmol/L 22 - 29 mmol/L [facility] Creatinine [Mass/Vol] 2.89 mg/dL High 0.72 - 1.25 mg/dL [facility] GFR/1.73 sq M.predicted (S/P/Bld) [Vol rate/Area] 24.3 mL/min Low - PINF [facility] Glucose [Mass/Vol] 74 mg/dL 74 - 100 mg/dL [facility] Potassium [Moles/Vol] 3.1 mmol/L Low 3.5 - 5.1 mmol/L [facility] Protein [Mass/Vol] 6.8 g/dL 6.4 - 8.3 g/dL [facility] Sodium [Moles/Vol] 131 mmol/L Low 136 - 145 mmol/L [facility] Urea nitrogen [Mass/Vol] 29 mg/dL High 9 - 23 mg/d L [facility] Consulton 02-21-2025 Consult Normal [facility] Consult Normal [facility] Consult Normal [facility] Consult Normal [facility] Laboratory - Chemistry and C hemistry - challengeon 02-21-2025 CRP [Mass/Vol] 60.3 mg/L High NINF - 5.0 mg/L [facility] Procalcitonin [Mass/Vol] 0.68 ng/mL High PROSPER F - 0.07 ng/mL [facility] Magnesium [Mass/Vol] 2.2 mg/dL 1.6 - 2 .6 mg/dL [facility] MAGNESIUMon 02-21-2025 Magnesium [Mass/Vol] 2.2 mg/dL Normal 1.6-2.6 [facility] Comment on above: Result Comment: ORDE R COMMENTS:Higher values can be expected in females during menses. Performed By: #### L AB149, [id number], LAB17, [id number], BAY160 ####Loss Prevention Associate: DOMENICA JARA ([id number])[facility])[address] [place] [address] Magnesium [Mass/Vol]on 02-21 Interpretation and review of laboratory results Normal [facility] No Panel Informationon 02-21 Interpretation and review of laboratory results Abnormal [facility] Nursing Noteon 02-21-2025 Nursing Note Pt ordered [employer] food. Assisted pt to sit up on bedside to eat. Normal [facility] Nursing Note Normal [facility] Nursing Note Pt declining scheduled medications until after RN calls facility to see if he is actively taking those medications" per pt request. This RN spoke with RN at [facility] to verify medications that pt is taking. Normal [facility] Nursing Note Normal [facility] Nursing Note Pt removed NC from nose, stated he doesn't need it anymore. Respiratory Therapy came in to give pt, scheduled breathing treatment, pt stated he didn't need one." Normal [facility] Nursing Note Normal [facility] PHOSPHORUSon 02-21-2025 Phosphate [Mass/Vol] 2.0 mg/dL Low 2.3-4.7 [facility] Comment on above: Performed By: #### L AB149, [id number], LAB17, [id number], KWD611 ####Loss Prevention Associate: DOMENICA JARA ([id number])[facility] ([facility])[address] [place] [address] PROCALCITONIN TESTon 025 PROCALCITONIN 0.68 ng/mL High <0.07 [facility] Comment on above: Result Comment: ORDE R COMMENTS:PCT <0.50 = Low risk of severe sepsis and/or septic shock.PCT >2.00 = High risk of severe sepsis and/or septic shock. Performed By: #### L AB149, [id number], LAB17, OYW733, LKV810 ####Loss Prevention Associate: DOMENICA JARA ([id number])[facility] ([facility])[address] [place] [address] [place] Phosphate [Moles/Vol]on 01-26 Phosphate [Mass/Vol] 2 mg/dL Low 2.3 - 4 .7 mg/dL [facility] Procalcitonin [Mass/Vol]on 0 02-21-2025 Interpretation and review of laboratory results Abnormal [facility] Progress Noteon 02-21-2025 Progress Note PHYSICAL THERAPY [facility] Name/MRN: Jair Snyder ([id number]) Date: 02/21/2025 Pt declined to work with therapy at this time, stating he wanted to eat first. Will reattempt at a later date. Sangeeta Saraiba, PT Normal [facility] Progress Note Normal [facility] Progress Note Normal [facility] RESPIRATORY PATHOGENS PANEL BY PCRon 02-21-2025 RESPIRATORY PATHOGENS PANEL BY PCR Normal [facility] Comment on above: Performed By: #### L [id number] ####Loss Prevention Associate: DOMENICA JARA ([id number])[facility] ([facility])[address] [place], [place] [id number] [facility] Respiratory pathogens DNA an d RNA panel EMMANUEL+non-probe (Nph)on 02-21-2025 Adenovirus Not detected Not Detected [facility] B. pertussis DNA EMMANUEL+probe Ql (Unsp spec) Not detected Not Detected [facility] ealt Bordetella parapertussis Not detected Not Detec yo [facility] Chlamydia pneumoniae Not detected Not Detected [facility] Coronavirus 229E Not detected Not Detected [facility] Coronavirus HKU1 Not detected Not Detected [facility] Coronavirus NL63 Not detected Not Detected [facility] Coronavirus OC43 Not detected Not Detected [facility] FLUAV RNA EMMANUEL+non-probe Ql (Nph) Not detected Not Detected [facility] FLUBV RNA EMMANUEL+non-probe Ql (Nph) Not detected Not Detected [facility] Metapneumovirus Not detected Not Detected [facility] Rhinovirus/Enterovirus Not detected Not Detected [facility] Interpretation and review of laboratory results Normal [facility] Mycoplasma pneumoniae Not detected Not Detected [facility] Parainfluenza 1 Not detected Not Detected [facility] Parainfluenza 2 Not detected Not Detected [facility] Parainfluenza 3 Not detected Not Detected [facility] Parainfluenza 4 Not detected Not Detected [facility] Respiratory Syncytial Virus Not detected Not Detected [facility] SARS-CoV-2 (COVID-19) RNA EMMANUEL+non-probe Ql (Nph) Not detected Not Detected [facility] aPTT Coag (Bld) [Time]on aPTT Coag (PPP) [Time] 50.3 s High 20.0 - 30.5 s [facility] Interpretation and review of laboratory results Abnormal [facility] aPTT Coag (PPP) [Time] 32.6 s High 20.0 - 30.5 s [facility] Interpretation and review of laboratory results Abnormal [facility] APTTon 02-20-2025 aPTT Coag (Bld) [Time] 26.2 s Normal 20.0-30.5 [place] [facility] Comment on above: Result Comment: ARPAN Kaplan COMMENTS:NOTE: The therapeutic time for Heparin anticoagulation, based on Xa activity inhibition, is an APTT of 46-80 seconds. Performed By: #### L AB320, [id number] ####Loss Prevention Associate: FENG CONSTANTINO ([id number])[facility] ([facility])[address] [place] [address] Absolute lymphocyte countOrd ered By: Kayley Melendrez on 02-20-2025 Lymphocytes Auto (Unsp spec) [#/Vol] 1.13 10*3/uL 0.83-4.51 [place] Absolute neutrophil countOrd ered By: Kayley Melendrez on 02-20-2025 Neutrophils (Bld) [#/Vol] 4.6 10*3/uL 2.0-7.7 [place] Anion gap in Serum or Plasma Ordered By: Kayley Melendrez on 02-20-2025 Anion gap [Moles/Vol] 12 mmol/L 5-15 [facility] Automated lymphocyte count a s percentage of total leukocytesOrdered By: Kayley Melendrez on 02-20-2025 Lymphocytes/100 WBC Auto (Unsp spec) 16.4 % Low 19-41 [place] BASIC METABOLIC PANELon 05-2 Anion gap [Moles/Vol] 12 mmol/L Normal 3-13 [facility] Comment on above: Performed By: #### L AB15 ####Loss Prevention Associate: FENG CONSTANTINO ([id number])[facility] [place] ([facility])[address] Calcium [Mass/Vol] 9.6 mg/dL Normal 8.4-10.2 [facility] Comment on above: Performed By: #### L AB15 ####Loss Prevention Associate: FENG CONSTANTINO ([id number])[facility] [place] ([facility])[address] Chloride [Moles/Vol] 92 mmol/L Low 98-107 [facility] Comment on above: Performed By: #### L AB15 ####Loss Prevention Associate: FENG CONSTANTINO ([id number])[facility] [place] ([facility])[address] CO2 [Moles/Vol] 29 mmol/L Normal 22-29 [facility] Comment on above: Performed By: #### L AB15 ####Loss Prevention Associate: FENG CONSTANTINO ([id number])[facility] [place] ([facility])[address] Creatinine [Mass/Vol] 2.57 mg/dL High 0.72-1.25 [facility] Comment on above: Performed By: #### L AB15 ####Loss Prevention Associate: FENG CONSTANTINO ([id number])[facility] [place] (SBHLAB)[address] [place] [address] [place] GLOMERULAR FILTRATION RATE ML/MIN/1.73 SQ M.PREDICTED 27.9 mL/min/1.73m*2 Low >60.0 [facility] Comment on above: Result Comment: Calc ulation based on the Chronic Kidney Disease Epidemiology Collaboration (CKD-EPI) equation refit without adjustment for race Performed By: #### L AB15 ####Loss Prevention Associate: FENG CONSTANTINO ([id number])[facility]OS[facility]ITALMatt GALINDOChandana (SBHLAB)[address] Glucose [Mass/Vol] 80 mg/dL Normal 74-100 [facility] Comment on above: Performed By: #### L AB15 ####Loss Prevention Associate: FENG CONSTANTINO ([id number])[facility]OSPITALMatt GALINDOChandana (SBHLAB)[address] Potassium [Moles/Vol] 3.1 mmol/L Low 3.5-5.1 [facility] Comment on above: Result Comment: [facility] potassium values may be up to 0.5 mmol/L lower than serum values. Performed By: #### L AB15 ####Loss Prevention Associate: FENG CONSTANTINO ([phone])[facility]OSPITALMatt MYERSDAPHNIE (SBHLAB)[address] Sodium [Moles/Vol] 133 mmol/L Low 136-145 [facility] Comment on above: Performed By: #### L AB15 ####Loss Prevention Associate: FENG CONSTANTINO ([phone])[facility]OS[facility]ITALMatt MYERSRUSTChandana (SBHLAB)[address] Urea nitrogen [Mass/Vol] 29 mg/dL High 9-23 [facility] Comment on above: Performed By: #### L AB15 ####Loss Prevention Associate: FENG CONSTANTINO ([id number])[facility]ITALMatt MYERSRUSTChandana (SBHLAB)[address] BUN/creatinine ratioOrdered By: Kayley Melendrez on 02-20-2025 Urea nitrogen/Creatinine [Mass ratio] 11.5 mg/mg 10-20 [place] Basic metabolic 1998 panelon 02-20-2025 Anion gap [Moles/Vol] 12 mmol/L 3 - 13 mmol/L [facility] Calcium [Mass/Vol] 9.6 mg/dL 8.4 - 10. 2 mg/dL [facility] Chloride [Moles/Vol] 92 mmol/L Low 98 - 10 7 mmol/L [facility] CO2 [Moles/Vol] 29 mmol/L 22 - 29 mmol/L [facility] Creatinine [Mass/Vol] 2.57 mg/dL High 0.72 - 1.25 mg/dL [facility] GFR/1.73 sq M.predicted (S/P/Bld) [Vol rate/Area] 27.9 mL/min Low - PINF [facility] Glucose [Mass/Vol] 80 mg/dL 74 - 100 mg/dL [facility] Interpretation and review of laboratory results Abnormal [facility] Potassium [Moles/Vol] 3.1 mmol/L Low 3.5 - 5.1 mmol/L [facility] Sodium [Moles/Vol] 133 mmol/L Low 136 - 145 mmol/L [facility] Urea nitrogen [Mass/Vol] 29 mg/dL High 9 - 23 mg/d L [facility] Basophil percentageOrdered B y: Kayley Melendrez on 02-20-2025 Basophils/100 WBC (Bld) 1.4 % High 0-1 [facility] Bilirubin, totalOrdered By: Kayley Melendrez on 02-20-2025 Bilirubin [Mass/Vol] 0.64 mg/dL 0.00-1.30 [facility] CBC (HEMOGRAM)on 02-20-2025 Erythrocyte distribution width (RBC) [Ratio] 18.8 % High 11.5-15.0 [facility] Comment on above: Performed By: #### L AB294 ####Loss Prevention Associate: FENG CONSTANTINO ([id number])[facility] ([facility])[address] [place] [address] Hematocrit (Bld) [Volume fraction] 26.8 % Low 40.0-52.0 [facility] Comment on above: Performed By: #### L AB294 ####Loss Prevention Associate: FENG [id number])[facility] ([facility])[address] [place] [address] Hemoglobin (Bld) [Mass/Vol] 8.7 g/dL Low 13.0-18.0 [facility] Comment on above: Performed By: #### L AB294 ####Loss Prevention Associate: FENG [id number])[facility] (SBHLAB)[address] MCH (RBC) [Entitic mass] 28.7 pg Normal 26.0-34.0 [facility] Comment on above: Performed By: #### L AB294 ####Loss Prevention Associate: FENG CONSTANTINO ([id number])[facility]ITALA [place] (SBHLAB)[address] MCHC 32.5 % Normal 30.5-36.0 [facility] Comment on above: Performed By: #### L AB294 ####Loss Prevention Associate: FENG CONSTANTINO ([id number])[facility]A [place] (SBHLAB)[address] MCV (RBC) [Entitic vol] 88.4 fL Normal 77.0-99.0 [facility] Comment on above: Performed By: #### L AB294 ####Loss Prevention Associate: FENG CONSTANTINO ([id number])[facility]A [place] (SBHLAB)[address] Platelet mean volume (Bld) [Entitic vol] 8.5 fL Low 9.0-12.7 [facility] Comment on above: Performed By: #### L AB294 ####Loss Prevention Associate: FENG CONSTANTINO ([id number])[facility] [place] (SBHLAB)[address] [place] [address] [place] Platelets (Bld) [#/Vol] 312 10*3/uL Normal 140-440 [facility] Comment on above: Performed By: #### L AB294 ####Loss Prevention Associate: FENG CONSTANTINO ([id number])[facility] [place] (SBHLAB)[address] [place] [address] [place] RBC (Bld) [#/Vol] 3.03 10*6/uL Low 4.40-5.90 [facility] Comment on above: Performed By: #### L AB294 ####Loss Prevention Associate: FENG CONSTANTINO ([id number])[facility] (SBHLAB)[address] [place], [place] [id number] [place] [address] WBC (Bld) [#/Vol] 9.4 10*3/uL Normal 3.6-10.7 [facility] Comment on above: Performed By: #### L AB294 ####Loss Prevention Associate: FENG CONSTANTINO ([id number])[facility] (SBHLAB)[address] [place], [place] [id number] [place] [address] CBC W/Diff, Automatedon 05-2 Absolute Lymph 1.13 X10 3/uL Normal 0.83-4.51 [facility] Comment on above: Order Comment: 413-2 Performed By: #### L 300.3900 #### [facility] [address] [place], [address] Absolute Neut 4.6 X10 3/uL Normal 2.0-7.7 [facility] Comment on above: Order Comment: 413-2 Performed By: #### L 300.3900 #### [facility] [address] [place], [address] Basophils/100 WBC (Bld) 1.4 % High 0-1 [facility] Comment on above: Order Comment: 413-2 Performed By: #### L 300.3900 #### [facility] [address] [place], [address] Eosinophils/100 WBC (Bld) 2.5 % Normal 0-5 [facility] Comment on above: Order Comment: 413-2 Performed By: #### L 300.3900 #### [facility] [address] [place], [address] Erythrocyte distribution width (RBC) [Ratio] 19.4 % High 11.6-14.6 [facility] Comment on above: Order Comment: 413-2 Performed By: #### L 300.3900 #### [facility] [address] [place], [address] Hematocrit (Bld) [Volume fraction] 25.9 % Low 40-54 [facility] Comment on above: Order Comment: 413-2 Performed By: #### L 300.3900 #### [facility] [address] [place], [address] Hemoglobin (Bld) [Mass/Vol] 8.5 g/dL Low 13.0-16.5 [facility] Comment on above: Order Comment: 413-2 Performed By: #### L 300.3900 #### [facility] [address] [place], [address] IG% 0.400 Normal 0.0-0.9 [facility] Comment on above: Order Comment: 413-2 Result Comment: IG% - Immature Granulocytes (promyelocytes, myelocytes and metamyelocytes) > 1% indicates that a LEFT SHIFT is Present. Performed By: #### L 300.3900 #### [facility] [address] [place], [address] Lymphocytes/100 WBC (Bld) 16.4 % Low 19-41 [facility] Comment on above: Order Comment: 413-2 Performed By: #### L 300.3900 #### [facility] [address] [place], [address] MCH (RBC) [Entitic mass] 30.1 pg Normal 27.0-32.0 [facility] Comment on above: Order Comment: 413-2 Performed By: #### L 300.3900 #### [facility] [address] [place], [address] MCHC (RBC) [Mass/Vol] 32.8 g/dL Normal 32-36 [facility] Comment on above: Order Comment: 413-2 Performed By: #### L 300.3900 #### [facility] [address] [place], [address] MCV (RBC) [Entitic vol] 91.8 fL Normal 80-94 [facility] Comment on above: Order Comment: 413-2 Performed By: #### L 300.3900 #### [facility] [address] [place], [address] Monocytes/100 WBC (Bld) 12.0 % High 0-10 [facility] Comment on above: Order Comment: 413-2 Performed By: #### L 300.3900 #### [facility] [address] [place], [address] Neutrophils/100 WBC (Bld) 67.3 % Normal 47-70 [facility] Comment on above: Order Comment: 413-2 Performed By: #### L 300.3900 #### [facility] [address] [place], [address] Nucleated RBC (Bld) [#/Vol] 0 10*3/uL Normal 0-5 [facility] Comment on above: Order Comment: 413-2 Performed By: #### L 300.3900 #### [facility] [address] [place], [address] Platelet mean volume (Bld) [Entitic vol] 9.0 fL Normal 6.2-12.0 [facility] Comment on above: Order Comment: 413-2 Performed By: #### L 300.3900 #### [facility] [address] [place], [address] Platelets (Bld) [#/Vol] 322 10*3/uL Normal 150-450 [facility] Comment on above: Order Comment: 413-2 Performed By: #### L 300.3900 #### [facility] [address] [place], [address] RBC (Bld) [#/Vol] 2.82 10*6/uL Low 4.6-6.2 [facility] Comment on above: Order Comment: 413-2 Performed By: #### L 300.3900 #### [facility] [address] [place], [address] RDW SD 63.5 fl High 35.1-43.9 [facility] Comment on above: Order Comment: 413-2 Performed By: #### L 300.3900 #### [facility] [address] [place], [address] WBC (Bld) [#/Vol] 6.9 10*3/uL Normal 4.4-11.0 [facility] Comment on above: Order Comment: 413-2 Performed By: #### L 300.3900 #### [facility] [address] [place], [address] CBC panel Auto (Bld)on 02-20 Erythrocyte distribution width (RBC) [Ratio] 18.8 % High 11.5 - 15.0 % [facility] Hematocrit (Bld) [Volume fraction] 26.8 % Low 40.0 - 52.0 % [facility] Hemoglobin (Bld) [Mass/Vol] 8.7 g/dL Low 13.0 - 18.0 g/dL [facility] Interpretation and review of laboratory results Abnormal [facility] MCH (RBC) [Entitic mass] 28.7 pg 26. 0 - 34.0 pg [facility] MCHC (RBC) [Mass/Vol] 32.5 % 30.5 - 36.0 % [facility] MCV (RBC) [Entitic vol] 88.4 fL 77.0 - 99.0 fL [facility] Platelet mean volume (Bld) [Entitic vol] 8.5 fL Low 9.0 - 12.7 fL [facility] Platelets (Bld) [#/Vol] 312 10*3/uL 140 - 440 10*3/uL [facility] RBC (Bld) [#/Vol] 3.03 10*6/uL Low 4.40 - 5.9 0 10*6/uL [facility] WBC (Bld) [#/Vol] 9.4 10*3/uL 3.6 - 10.7 10*3/uL [facility] CT CHEST ANGIOGRAM W AND/OR WO IV CONTRASTon 02-20-2025 CT CHEST ANGIOGRAM W AND/OR WO IV CONTRAST Normal [facility] CTA Chest vessels WO and W c ontrast Dimitrios 02-20-2025 [facility] Radiology Study observation (narrative) [facility] Chest vessels WO and W c ontrast IVOrdered By: Justo Milan on 02-20-2025 [facility] Work Phone: Carbon dioxide, total [Moles /volume] in Central venous bloodOrdered By: Kayley Melendrez on 02-20-2025 CO2 [Moles/Vol] 30.1 mmol/L 21.0-32.0 [facility] Chloride assayOrdered By: Carmen Melendrez on 02-20-2025 Chloride [Moles/Vol] 91 mmol/L Low 98-108 [facility] Comprehensive Metabolic Prof ilon 02-20-2025 Albumin [Mass/Vol] 3.0 g/dL Low 3.5-5.0 [facility] Comment on above: Order Comment: 413-2 Performed By: #### L 300.3900 #### [facility] [address] [place], [place], [address] Albumin/Globulin [Mass ratio] 0.8 {ratio} Low 0.9-2.4 [facility] Comment on above: Order Comment: 413-2 Performed By: #### L 300.3900 #### [facility] [address] [place], [address] ALK PHOS 133 U/L High 40-129 [facility] Comment on above: Order Comment: 413-2 Performed By: #### L 300.3900 #### [facility] [address] [place], [address] ALT [Catalytic activity/Vol] 13 U/L Normal <=46 [facility] Comment on above: Order Comment: 413-2 Performed By: #### L 300.3900 #### [facility] [address] [place], [address] AST [Catalytic activity/Vol] 32 U/L Normal <=37 [facility] Comment on above: Order Comment: 413-2 Performed By: #### L 300.3900 #### [facility] [address] [place], [address] Bilirubin [Mass/Vol] 0.64 mg/dL Normal 0.00-1.30 [facility] Comment on above: Order Comment: 413-2 Performed By: #### L 300.3900 #### [facility] [address] [place], [address] BUN/CRE 11.5 RATIO Normal 10-20 [facility] Comment on above: Order Comment: 413-2 Performed By: #### L 300.3900 #### [facility] [address] [place], [address] Calcium [Mass/Vol] 9.8 mg/dL Normal 7.6-11.0 [facility] Comment on above: Order Comment: 413-2 Performed By: #### L 300.3900 #### [facility] [address] [place], [address] Chloride [Moles/Vol] 91 mmol/L Low 98-108 [facility] Comment on above: Order Comment: 413-2 Performed By: #### L 300.3900 #### [facility] [address] [place], [address] CO2 [Moles/Vol] 30.1 mmol/L Normal 21.0-32.0 [facility] Comment on above: Order Comment: 413-2 Performed By: #### L 300.3900 #### [facility] [address] [place], [address] Creatinine [Mass/Vol] 3.87 mg/dL High 0.70-1.20 [facility] Comment on above: Order Comment: 413-2 Performed By: #### L 300.3900 #### [facility] [address] [place], [address] GAP 12 Normal 5-15 [facility] Comment on above: Order Comment: 413-2 Performed By: #### L 300.3900 #### [facility] [address] [place], [address] GFR/1.73 sq M.predicted among non-blacks MDRD (S/P/Bld) [Vol rate/Area] 17 mL/min/{1.73_m2} Low >60 [facility] Comment on above: Order Comment: 413-2 Result Comment: mL/m in/1.73m2 CKD-EPI Creatinine Equation (2020) Performed By: #### L 300.3900 #### [facility] [address] [place], [address] Globulin (S) [Mass/Vol] 4.0 g/dL Normal 2.2-4.2 [facility] Comment on above: Order Comment: 413-2 Performed By: #### L 300.3900 #### [facility] [address] [place], [address] Glucose [Mass/Vol] 78 mg/dL Normal 70-99 [facility] Comment on above: Order Comment: 413-2 Performed By: #### L 300.3900 #### [facility] [address] [place], [address] Potassium [Moles/Vol] 3.0 mmol/L Low 3.3-5.1 [facility] Comment on above: Order Comment: 413-2 Performed By: #### L 300.3900 #### [facility] [address] [place], [address] Sodium [Moles/Vol] 134 mmol/L Normal 133-145 [facility] Comment on above: Order Comment: 413-2 Performed By: #### L 300.3900 #### [facility] [address] [place], [address] T PROT 6.9 g/dL Normal 5.9-8.4 [facility] Comment on above: Order Comment: 413-2 Performed By: #### L 300.3900 #### [facility] [address] [place], [address] Urea nitrogen [Mass/Vol] 44 mg/dL High 4-19 [facility] Comment on above: Order Comment: 413-2 Performed By: #### L 300.3900 #### [facility] [address] [place], [place], [id number] ED Nursing Noteon 02-20-2025 ED Nursing Note Called report to 3W nurse who will be taking over pt care. Normal [facility] ED Nursing Note Attempted to reposition pt and have him sit up but pt states "he feels fine and does not want to sit up"despite coughing up blood. Normal [facility] ED Nursing Note Pt placed on 2L NC due to O2 saturation of 90%. Currently 97 on 2L Normal [facility] ED Nursing Note Suction turned on at this time for pt due to increased coughing up of blood Normal [facility] ED Nursing Note Normal [facility] ED Nursing Note Normal [facility] ED Provider Noteon ED Provider Note Normal [facility] Eosinophil percentageOrdered By: Kayley Melendrez on 02-20-2025 Eosinophils/100 WBC (Bld) 2.5 % 0-5 [facility] Erythrocyte distribution wid th ratioOrdered By: Kayley Melendrez on 02-20-2025 Erythrocyte distribution width (RBC) [Ratio] 19.4 % High 11.6-14.6 [facility] Erythrocyte distribution wid th standard deviationOrdered By: Kayley Melendrez on 02-20-2025 Erythrocyte distribution width (RBC) [Ratio] 63.5 fl High 35.1-43.9 [facility] Glomerular filtration rate ( GFR) estimation/1.73 sq m using serum, plasma, or whole bOrdered By: Kayley Melendrez on 02-20-2025 GFR/1.73 sq M.predicted among non-blacks MDRD (S/P/Bld) [Vol rate/Area] 17 mL/min/{1.73_m2} Low >60 [facility] Comment on above: mL/min/1.73m2 CKD-EP I Creatinine Equation (2020) Hematocrit Auto (Bld) [Volum e fraction]Ordered By: Kayley Melendrez on 02-20-2025 Hematocrit (Bld) [Volume fraction] 25.9 % Low 40-54 [facility] Hemoglobin measurementOrdere d By: Kayley Melendrez on 02-20-2025 Hemoglobin (Bld) [Mass/Vol] 8.5 g/dL Low 13.0-16.5 [facility] Immature granulocytes/100 WB C Auto (Bld)Ordered By: Kayley Melendrez on 02-20-2025 Immature granulocytes/100 WBC (Bld) 0.400 % 0.0-0.9 [facility] Comment on above: IG% - Immature Granu locytes (promyelocytes, myelocytes and metamyelocytes) > 1% indicates that a LEFT SHIFT is Present. International normalized rat io (INR) calculationOrdered By: Kayley Melendrez on 02-20-2025 INR Coag (Bld) [Relative time] 1.4 {INR} [facility] - Chemistry and C hemistry - challengeOrdered By: Kayley Melendrez on 02-20-2025 AST [Catalytic activity/Vol] 32 U/L <38 [facility] - Coagulationon 0 02-20-2025 PT Coag (Bld) [Time] 14.7 s High 9.0 - 12.0 s [facility] MCV (mean corpuscular volume ) determinationOrdered By: Kayley Melendrez on 02-20-2025 MCV (RBC) [Entitic vol] 91.8 fL 80-94 [facility] Mean corpuscular hemoglobin (MCH) determinationOrdered By: Kayley Melendrez on 02-20-2025 MCH (RBC) [Entitic mass] 30.1 pg 27.0-32.0 [facility] Mean corpuscular hemoglobin concentration (MCHC) determinationOrdered By: Kayley Melendrez on 02-20-2025 MCHC (RBC) [Mass/Vol] 32.8 g/dL 32-36 [facility] Mean platelet volume determi nationOrdered By: [facility] Hospital[facility] Melendrez on 02-20-2025 Platelet mean volume (Bld) [Entitic vol] 9.0 fL 6.2-12.0 [facility] Monocyte percentageOrdered B y: Kayley Melendrez on 02-20-2025 Monocytes/100 WBC (Bld) 12.0 % High 0-10 [facility] Neutrophil percentageOrdered By: [facility] Hospitaljacob aneudydetroitsamson on 02-20-2025 Neutrophils/100 WBC (Bld) 67.3 % 47-70 [facility] No Panel Informationon 02-20 [facility] Nucleated red blood cell per centageOrdered By: Kayley Melendrez on 02-20-2025 Nucleated RBC/100 WBC (Bld) [Ratio] 0 % 0-5 [facility] Nursing Noteon 02-20-2025 Nursing Note Pt arrived on floor via [employer] transport Normal [facility] PROTHROMBIN TIMEon INR Coag (PPP) [Relative time] 1.4 {INR} High 0.9-1.1 [facility] Comment on above: Result Comment: Vaughn [...] Myocardial Infarction Performed By: #### L [id number], [id number] ####Loss Prevention Associate: FENG CONSTANTINO ([id number])[facility] ([facility])[address] [place] [address] PT Coag (PPP) [Time] 14.7 s High 9.0-12.0 [facility] Comment on above: Performed By: #### L AB320, [id number] ####Loss Prevention Associate: FENG CONSTANTINO ([id number])[facility] (SBHLAB)[address] [place] [address] PT Coag (Bld) [Time]on 02-20 INR Coag (PPP) [Relative time] 1.4 {INR} High 0.9 - 1.1 [facility] Interpretation and review of laboratory results Abnormal [facility] Platelet countOrdered By: Carmen Melendrez on 02-20-2025 Platelets (Bld) [#/Vol] 322 10*3/uL 150-450 [facility] Potassium measurement (mass/ volume)Ordered By: Kayley Melendrez on 02-20-2025 Potassium (Unsp spec) [Mass/Vol] 3.0 mmol/L Low 3.3-5.1 [facility] Prothrombin Time w/INRon INR Coag (PPP) [Relative time] 1.4 {INR} Normal [facility] Comment on above: Order Comment: 413-2 Performed By: #### L 300.3900 #### [facility] [address] [place], [place], [id number] PT Coag (PPP) [Time] 17.5 s High 11.7-14.9 [facility] Comment on above: Order Comment: 413-2 Performed By: #### L 300.3900 #### [facility] [address] [place], [place], [id number] [phone] Prothrombin timeOrdered By: Kayley Melendrez on 02-20-2025 PT Coag (PPP) [Time] 17.5 s High 11.7-14.9 [facility] RBC Auto (Bld) [#/Vol]Ordere d By: Kayley Melendrez on 02-20-2025 RBC (Bld) [#/Vol] 2.82 10*6/uL Low 4.6-6.2 [facility] Serum creatinine measurement (mass/volume)Ordered By: Kayley Melendrez on 02-20-2025 Creatinine [Mass/Vol] 3.87 mg/dL High 0.70-1.20 [facility] Serum globulin measurementOr dered By: Kayley Melendrez on 02-20-2025 Globulin (S) [Mass/Vol] 4.0 g/dL 2.2-4.2 [facility] Serum glucose measurement (m ass/volume)Ordered By: Kayley Melendrez on 02-20-2025 Glucose [Mass/Vol] 78 mg/dL 70-99 [facility] Serum or plasma alanine mayorga otransferase (ALT) measurementOrdered By: Kayley Melendrez on 02-20-2025 ALT [Catalytic activity/Vol] 13 U/L <47 [facility] Serum or plasma albumin audrey urement (mass/volume)Ordered By: Kayley Melendrez on 02-20-2025 Albumin [Mass/Vol] 3.0 g/dL Low 3.5-5.0 [facility] Serum or plasma albumin/glob ulin mass ratioOrdered By: Kayley Melendrez on 02-20-2025 Albumin/Globulin [Mass ratio] 0.8 {ratio} Low 0.9-2.4 [facility] Serum or plasma alkaline jacob sphatase measurementOrdered By: Kayley Melendrez on 02-20-2025 ALP [Catalytic activity/Vol] 133 U/L High 40-129 [facility] Serum or plasma calcium audrey urement (mass/volume)Ordered By: Kayley Melendrez on 02-20-2025 Calcium [Mass/Vol] 9.8 mg/dL 7.6-11.0 [facility] Serum or plasma urea nitroge n measurement (mass/volume)Ordered By: Kayley Melendrez on 02-20-2025 Urea nitrogen [Mass/Vol] 44 mg/dL High 4-19 [facility] Sodium levelOrdered By: Omega Melendrez on 02-20-2025 Sodium [Moles/Vol] 134 mmol/L 133-145 [facility] Total proteinOrdered By: Lexis Melendrez on 02-20-2025 Protein [Mass/Vol] 6.9 g/dL 5.9-8.4 [facility] White blood cell (WBC) count Ordered By: Kayley Melendrez on 02-20-2025 WBC (Bld) [#/Vol] 6.9 10*3/uL 4.4-11.0 [facility] aPTT Coag (Bld) [Time]on aPTT Coag (PPP) [Time] 26.2 s 20.0 - 30.5 s [facility] Interpretation and review of laboratory results Normal [facility] International normalized rat io (INR) calculationOrdered By: Kayley Melendrez on 02-15-2025 INR Coag (Bld) [Relative time] 1.3 {INR} [facility] Prothrombin Time w/INRon INR Coag (PPP) [Relative time] 1.3 {INR} Normal [facility] Comment on above: Order Comment: 413-2 Performed By: #### L 300.3900 #### [facility] [address] [facility] [place], [place], [id number] PT Coag (PPP) [Time] 16.6 s High 11.7-14.9 [facility] Comment on above: Order Comment: 413-2 Performed By: #### L 300.3900 #### [facility] [address] [facility] [place], [place], [address] Prothrombin timeOrdered By: Kayley Melendrez on 02-15-2025 PT Coag (PPP) [Time] 16.6 s High 11.7-14.9 [facility] Nursing Noteon 02-14-2025 Nursing Note Normal [facility] Progress Noteon 02-14-2025 Progress Note Patient completed 6 week course of Amp-Sulbactam on 02/13/25 for sacral osteomyelitis. Tunneled line has since been removed. Continue to monitor off antibiotics at this time. Continue wound care. Normal [facility] Progress Note Normal [facility] International normalized rat io (INR) measurement by fingerstickOrdered By: Kayley Melendrez on 02-13-2025 INR Coag (BldC) [Relative time] 1.7 [place] Comment on above: Critical Value > 4.0 Protime w/INR Fingerstickon 02-13-2025 INR Coag (PPP) [Relative time] 1.7 {INR} Normal [place] Comment on above: Result Comment: Crit ical Value > 4.0 Performed By: #### L 9200.0000 #### [facility] [address] [place], [place], [id number] Protime Coagsen 19.1 SEC High 11.7-14.9 [place] Comment on above: Performed By: #### L 9200.0000 #### [facility] [address] [place], [place], [id number] Whole blood prothrombin time Ordered By: Kayley Melendrez on 02-13-2025 PT Coag (Bld) [Time] 19.1 s High 11.7-14.9 [facility] Absolute lymphocyte countOrd ered By: Kayley Melendrez on 02-12-2025 Lymphocytes Auto (Unsp spec) [#/Vol] 1.29 10*3/uL 0.83-4.51 [place] Absolute neutrophil countOrd ered By: Kayley Melendrez on 02-12-2025 Neutrophils (Bld) [#/Vol] 4.7 10*3/uL 2.0-7.7 [place] Anion gap in Serum or Plasma Ordered By: Kayley Melendrez on 02-12-2025 Anion gap [Moles/Vol] 12 mmol/L 5-15 [facility] Automated lymphocyte count a s percentage of total leukocytesOrdered By: Kayley Melendrez on 02-12-2025 Lymphocytes/100 WBC Auto (Unsp spec) 17.7 % Low 19-41 [facility] BUN/creatinine ratioOrdered By: Kayley Melendrez on 02-12-2025 Urea nitrogen/Creatinine [Mass ratio] 10.3 mg/mg 10-20 [place] Basophil percentageOrdered B y: Kayley Melendrez on 02-12-2025 Basophils/100 WBC (Bld) 1.1 % High 0-1 [facility] Bilirubin, totalOrdered By: Kayley Melendrez on 02-12-2025 Bilirubin [Mass/Vol] 0.69 mg/dL 0.00-1.30 [facility] CBC W/Diff, Automatedon 01-25 Absolute Lymph 1.29 X10 3/uL Normal 0.83-4.51 [place] Comment on above: Performed By: #### [id number] #### [facility] [address] [place], [address] Absolute Neut 4.7 X10 3/uL Normal 2.0-7.7 [place] Comment on above: Performed By: #### L [id number] #### [facility] [address] [place], [address] Basophils/100 WBC (Bld) 1.1 % High 0-1 [facility] Comment on above: Performed By: #### L [id number] #### [facility] [address] [place], [address] Eosinophils/100 WBC (Bld) 4.7 % Normal 0-5 [place] Comment on above: Performed By: #### L 300.3900 #### [facility] [address] [place], [address] Erythrocyte distribution width (RBC) [Ratio] 18.3 % High 11.6-14.6 [place] Comment on above: Performed By: #### L 300.3900 #### [facility] [address] [place], [address] Hematocrit (Bld) [Volume fraction] 24.6 % Low 40-54 [place] Comment on above: Performed By: #### L 300.3900 #### [facility] [address] [place], [address] Hemoglobin (Bld) [Mass/Vol] 8.0 g/dL Low 13.0-16.5 [place] Comment on above: Performed By: #### L 300.3900 #### [facility] [address] [place], [address] IG% 0.500 Normal 0.0-0.9 [place] Comment on above: Result Comment: IG% - Immature Granulocytes (promyelocytes, myelocytes and metamyelocytes) > 1% indicates that a LEFT SHIFT is Present. Performed By: #### L 300.3900 #### [facility] [address] [place], [address] Lymphocytes/100 WBC (Bld) 17.7 % Low 19-41 [facility] Comment on above: Performed By: #### L 300.3900 #### [facility] [address] [place], [address] MCH (RBC) [Entitic mass] 29.3 pg Normal 27.0-32.0 [facility] Comment on above: Performed By: #### L 300.3900 #### [facility] [address] [place], [address] MCHC (RBC) [Mass/Vol] 32.5 g/dL Normal 32-36 [facility] Comment on above: Performed By: #### L 300.3900 #### [facility] [address] [place], [address] MCV (RBC) [Entitic vol] 90.1 fL Normal 80-94 [facility] Comment on above: Performed By: #### L 300.3900 #### [facility] [address] [place], [address] Monocytes/100 WBC (Bld) 11.9 % High 0-10 [facility] Comment on above: Performed By: #### L 300.3900 #### [facility] [address] [place], [address] Neutrophils/100 WBC (Bld) 64.1 % Normal 47-70 [facility] Comment on above: Performed By: #### L 300.3900 #### [facility] [address] [place], [address] Nucleated RBC (Bld) [#/Vol] 0 10*3/uL Normal 0-5 [facility] Comment on above: Performed By: #### L 300.3900 #### [facility] [address] [place], [address] Platelet mean volume (Bld) [Entitic vol] 9.2 fL Normal 6.2-12.0 [facility] Comment on above: Performed By: #### L 300.3900 #### [facility] [address] [place], [address] Platelets (Bld) [#/Vol] 294 10*3/uL Normal 150-450 [facility] Comment on above: Performed By: #### L 300.3900 #### [facility] [address] [place], [address] RBC (Bld) [#/Vol] 2.73 10*6/uL Low 4.6-6.2 [facility] Comment on above: Performed By: #### L 300.3900 #### [facility] [address] [place], [address] RDW SD 59.4 fl High 35.1-43.9 [facility] Comment on above: Performed By: #### L 300.3900 #### [facility] [address] [place], [address] WBC (Bld) [#/Vol] 7.3 10*3/uL Normal 4.4-11.0 [facility] Comment on above: Performed By: #### L 300.3900 #### [facility] [address] [place], [address] Carbon dioxide, total [Moles /volume] in Central venous bloodOrdered By: Kayley Melendrez on 02-12-2025 CO2 [Moles/Vol] 28.4 mmol/L 21.0-32.0 [facility] Chloride assayOrdered By: Carmen Melendrez on 02-12-2025 Chloride [Moles/Vol] 91 mmol/L Low 98-108 [facility] Comprehensive Metabolic Prof ilon 02-12-2025 Albumin [Mass/Vol] 2.9 g/dL Low 3.5-5.0 [facility] Comment on above: Performed By: #### L 300.3900 #### [facility] [address] [place], [address] Albumin/Globulin [Mass ratio] 0.7 {ratio} Low 0.9-2.4 [facility] Comment on above: Performed By: #### L 300.3900 #### [facility] [address] [place], [address] ALK PHOS 177 U/L High 40-129 [facility] Comment on above: Performed By: #### L 300.3900 #### [facility] [address] [place], [address] ALT [Catalytic activity/Vol] 9 U/L Normal <=46 [facility] Comment on above: Performed By: #### L [id number] #### [facility] [address] [place], [address] AST [Catalytic activity/Vol] 34 U/L Normal <=37 [facility] Comment on above: Performed By: #### L 300.3900 #### [facility] [address] [place], [address] Bilirubin [Mass/Vol] 0.69 mg/dL Normal 0.00-1.30 [facility] Comment on above: Performed By: #### L 300.3900 #### [facility] [address] [place], [address] BUN/CRE 10.3 RATIO Normal 10-20 [facility] Comment on above: Performed By: #### L 300.3900 #### [facility] [address] [place], [address] Calcium [Mass/Vol] 9.9 mg/dL Normal 7.6-11.0 [facility] Comment on above: Performed By: #### L 300.3900 #### [facility] [address] [place], [address] Chloride [Moles/Vol] 91 mmol/L Low 98-108 [facility] Comment on above: Performed By: #### L 300.3900 #### [facility] [address] [place], [address] CO2 [Moles/Vol] 28.4 mmol/L Normal 21.0-32.0 [facility] Comment on above: Performed By: #### L 300.3900 #### [facility] [address] [place], [address] Creatinine [Mass/Vol] 4.17 mg/dL High 0.70-1.20 [facility] Comment on above: Performed By: #### L 300.3900 #### [facility] [address] [place], [address] GAP 12 Normal 5-15 [facility] Comment on above: Performed By: #### L 300.3900 #### [facility] [address] [place], [address] GFR/1.73 sq M.predicted among non-blacks MDRD (S/P/Bld) [Vol rate/Area] 16 mL/min/{1.73_m2} Low >60 [facility] Comment on above: Result Comment: mL/m in/1.73m2 CKD-EPI Creatinine Equation (2020) Performed By: #### L 300.3900 #### [facility] [address] [place], [address] Globulin (S) [Mass/Vol] 4.2 g/dL Normal 2.2-4.2 [facility] Comment on above: Performed By: #### L 300.3900 #### [facility] [address] [place], [address] Glucose [Mass/Vol] 77 mg/dL Normal 70-99 [facility] Comment on above: Performed By: #### L [id number] #### [facility] [address] [place], [address] Potassium [Moles/Vol] 3.2 mmol/L Low 3.3-5.1 [facility] Comment on above: Performed By: #### L 300.3900 #### [facility] [address] [place], [address] Sodium [Moles/Vol] 131 mmol/L Low 133-145 [facility] Comment on above: Performed By: #### L 300.3900 #### [facility] [address] [place], [address] T PROT 7.1 g/dL Normal 5.9-8.4 [facility] Comment on above: Performed By: #### L 300.3900 #### [facility] [address] [place], [address] Urea nitrogen [Mass/Vol] 43 mg/dL High 4-19 [facility] Comment on above: Performed By: #### L 300.3900 #### [facility] [address] [place], [address] Eosinophil percentageOrdered By: Kayley Melendrez on 02-12-2025 Eosinophils/100 WBC (Bld) 4.7 % 0-5 [facility] Erythrocyte distribution wid th ratioOrdered By: Kayley Melendrez on 02-12-2025 Erythrocyte distribution width (RBC) [Ratio] 18.3 % High 11.6-14.6 [facility] Erythrocyte distribution wid th standard deviationOrdered By: Kayley Melendrez on 02-12-2025 Erythrocyte distribution width (RBC) [Ratio] 59.4 fl High 35.1-43.9 [facility] Glomerular filtration rate ( GFR) estimation/1.73 sq m using serum, plasma, or whole bOrdered By: Kayley Melendrez on 02-12-2025 GFR/1.73 sq M.predicted among non-blacks MDRD (S/P/Bld) [Vol rate/Area] 16 mL/min/{1.73_m2} Low >60 [facility] Comment on above: mL/min/1.73m2 CKD-EP I Creatinine Equation (2020) Hematocrit Auto (Bld) [Volum e fraction]Ordered By: [facility] on 02-12-2025 Hematocrit (Bld) [Volume fraction] 24.6 % Low 40-54 [facility] Hemoglobin measurementOrdere d By: Kayley Melendrez on 02-12-2025 Hemoglobin (Bld) [Mass/Vol] 8.0 g/dL Low 13.0-16.5 [facility] Immature granulocytes/100 WB C Auto (Bld)Ordered By: Kayley Melendrez on 02-12-2025 Immature granulocytes/100 WBC (Bld) 0.500 % 0.0-0.9 [facility] Comment on above: IG% - Immature Granu locytes (promyelocytes, myelocytes and metamyelocytes) > 1% indicates that a LEFT SHIFT is Present. International normalized rat io (INR) calculationOrdered By: Kayley Melendrez on 02-12-2025 INR Coag (Bld) [Relative time] 1.5 {INR} [facility] - Chemistry and C hemistry - challengeOrdered By: Kayley Melendrez on 02-12-2025 AST [Catalytic activity/Vol] 34 U/L <38 [facility] MCV (mean corpuscular volume ) determinationOrdered By: Kayley Melendrez on 02-12-2025 MCV (RBC) [Entitic vol] 90.1 fL 80-94 [facility] Mean corpuscular hemoglobin (MCH) determinationOrdered By: Kayley Melendrez on 02-12-2025 MCH (RBC) [Entitic mass] 29.3 pg 27.0-32.0 [facility] Mean corpuscular hemoglobin concentration (MCHC) determinationOrdered By: Kayley Melendrez on 02-12-2025 MCHC (RBC) [Mass/Vol] 32.5 g/dL 32-36 [facility] Mean platelet volume determi nationOrdered By: Kayley Melendrez on 02-12-2025 Platelet mean volume (Bld) [Entitic vol] 9.2 fL 6.2-12.0 [facility] Monocyte percentageOrdered B y: Kayley Melendrez on 02-12-2025 Monocytes/100 WBC (Bld) 11.9 % High 0-10 [facility] Neutrophil percentageOrdered By: Kayley Melendrez on 02-12-2025 Neutrophils/100 WBC (Bld) 64.1 % 47-70 [facility] Nucleated red blood cell per centageOrdered By: Kayley Melendrez on 02-12-2025 Nucleated RBC/100 WBC (Bld) [Ratio] 0 % 0-5 [facility] Platelet countOrdered By: Carmen Melendrez on 02-12-2025 Platelets (Bld) [#/Vol] 294 10*3/uL 150-450 [facility] Potassium measurement (mass/ volume)Ordered By: Kayley Melendrez on 02-12-2025 Potassium (Unsp spec) [Mass/Vol] 3.2 mmol/L Low 3.3-5.1 [place] Prothrombin Time w/INRon INR Coag (PPP) [Relative time] 1.5 {INR} Normal [facility] Comment on above: Performed By: #### L 300.3900 #### [facility] [address] [place], [place], [id number] PT Coag (PPP) [Time] 17.9 s High 11.7-14.9 [facility] Comment on above: Performed By: #### L 300.3900 #### [facility] [address] [place], [place], [address] Prothrombin timeOrdered By: Kayley Melendrez on 02-12-2025 PT Coag (PPP) [Time] 17.9 s High 11.7-14.9 [facility] RBC Auto (Bld) [#/Vol]Ordere d By: Kayley Melendrez on 02-12-2025 RBC (Bld) [#/Vol] 2.73 10*6/uL Low 4.6-6.2 [facility] Serum creatinine measurement (mass/volume)Ordered By: Kayley Melendrez on 02-12-2025 Creatinine [Mass/Vol] 4.17 mg/dL High 0.70-1.20 [facility] Serum globulin measurementOr dered By: Kayley Melendrez on 02-12-2025 Globulin (S) [Mass/Vol] 4.2 g/dL 2.2-4.2 [facility] Serum glucose measurement (m ass/volume)Ordered By: Kayley Melendrez on 02-12-2025 Glucose [Mass/Vol] 77 mg/dL 70-99 [facility] Serum or plasma alanine mayorga otransferase (ALT) measurementOrdered By: Kayley Melendrez on 02-12-2025 ALT [Catalytic activity/Vol] 9 U/L <47 [facility] Serum or plasma albumin audrey urement (mass/volume)Ordered By: Kayley Melendrez on 02-12-2025 Albumin [Mass/Vol] 2.9 g/dL Low 3.5-5.0 [facility] Serum or plasma albumin/glob ulin mass ratioOrdered By: Kayley Melendrez on 02-12-2025 Albumin/Globulin [Mass ratio] 0.7 {ratio} Low 0.9-2.4 [facility] Serum or plasma alkaline jacob sphatase measurementOrdered By: Kayley Melendrez on 02-12-2025 ALP [Catalytic activity/Vol] 177 U/L High 40-129 [facility] Serum or plasma calcium audrey urement (mass/volume)Ordered By: Kayley Melendrez on 02-12-2025 Calcium [Mass/Vol] 9.9 mg/dL 7.6-11.0 [facility] Serum or plasma urea nitroge n measurement (mass/volume)Ordered By: Kayley Melendrez on 02-12-2025 Urea nitrogen [Mass/Vol] 43 mg/dL High 4-19 [facility] Sodium levelOrdered By: Omega Melendrez on 02-12-2025 Sodium [Moles/Vol] 131 mmol/L Low 133-145 [facility] Total proteinOrdered By: Lexis Melendrez on 02-12-2025 Protein [Mass/Vol] 7.1 g/dL 5.9-8.4 [facility] White blood cell (WBC) count Ordered By: Kayley Melendrez on 02-12-2025 WBC (Bld) [#/Vol] 7.3 10*3/uL 4.4-11.0 [facility] 36on 02-09-2025 36 Normal [facility] normalized rat io (INR) measurement by fingerstickOrdered By: Kayley Melendrez on 02-08-2025 INR Coag (BldC) [Relative time] 2.3 [place] Comment on above: Critical Value > 4.0 Protime w/INR Fingerstickon 02-08-2025 INR Coag (PPP) [Relative time] 2.3 {INR} Normal [place] Comment on above: Result Comment: Crit ical Value > 4.0 Performed By: #### L 9200.0000 #### [facility], [address] Protime Coagsen 24.9 SEC High 11.7-14.9 [place] Comment on above: Performed By: #### L 9200.0000 #### [facility] [address] [place], [address] Whole blood prothrombin time Ordered By: Kayley Melendrez on 02-08-2025 PT Coag (Bld) [Time] 24.9 s High 11.7-14.9 [facility] normalized rat io (INR) calculationOrdered By: Jayesh Stubbs on 02-07-2025 INR Coag (Bld) [Relative time] 1.8 {INR} [place] Prothrombin Time w/INRon INR Coag (PPP) [Relative time] 1.8 {INR} Normal [facility] Comment on above: Order Comment: 413-2 Performed By: #### L 300.3900 #### [facility] [address] [facility], [address] PT Coag (PPP) [Time] 21.1 s High 11.7-14.9 [facility] Comment on above: Order Comment: 413-2 Performed By: #### L 300.3900 #### [facility] [address] [facility], [address] Prothrombin timeOrdered By: Jayesh Stubbs on 02-07-2025 PT Coag (PPP) [Time] 21.1 s High 11.7-14.9 [facility] Absolute lymphocyte countOrd ered By: Kayley Melendrez on 02-05-2025 Lymphocytes Auto (Unsp spec) [#/Vol] 1.77 10*3/uL 0.83-4.51 [facility] Absolute neutrophil countOrd ered By: Kayley Melendrez on 02-05-2025 Neutrophils (Bld) [#/Vol] 4.6 10*3/uL 2.0-7.7 [facility] Anion gap in Serum or Plasma Ordered By: Kayley Melendrez on 02-05-2025 Anion gap [Moles/Vol] 18 mmol/L High 5-15 [facility] Automated lymphocyte count a s percentage of total leukocytesOrdered By: Lexisamparo Melendrez on 02-05-2025 Lymphocytes/100 WBC Auto (Unsp spec) 22.0 % 19-41 [facility] BUN/creatinine ratioOrdered By: Lexisamparo Melendrez on 02-05-2025 Urea nitrogen/Creatinine [Mass ratio] 4.1 mg/mg Low 10-20 [facility] Basophil percentageOrdered B y: Kayley Melendrez on 02-05-2025 Basophils/100 WBC (Bld) 1.0 % 0-1 [facility] Bilirubin, totalOrdered By: Kayley Melendrez on 02-05-2025 Bilirubin [Mass/Vol] 0.81 mg/dL 0.00-1.30 [facility] CBC W/Diff, Automatedon 01-25 Absolute Lymph 1.77 X10 3/uL Normal 0.83-4.51 [facility] Comment on above: Order Comment: 413-2 Performed By: #### L 300.3900 #### [facility] [address] [place], [address] Absolute Neut 4.6 X10 3/uL Normal 2.0-7.7 [facility] Comment on above: Order Comment: 413-2 Performed By: #### L 300.3900 #### [facility] [address] [place], [address] Basophils/100 WBC (Bld) 1.0 % Normal 0-1 [facility] Comment on above: Order Comment: 413-2 Performed By: #### L 300.3900 #### [facility] [address] [place], [address] Eosinophils/100 WBC (Bld) 4.1 % Normal 0-5 [facility] Comment on above: Order Comment: 413-2 Performed By: #### L 300.3900 #### [facility] [address] [place], [address] Erythrocyte distribution width (RBC) [Ratio] 18.8 % High 11.6-14.6 [facility] Comment on above: Order Comment: 413-2 Performed By: #### L 300.3900 #### [facility] [address] [place], [address] Hematocrit (Bld) [Volume fraction] 28.1 % Low 40-54 [facility] Comment on above: Order Comment: 413-2 Performed By: #### L 300.3900 #### [facility] [address] [place], [address] Hemoglobin (Bld) [Mass/Vol] 8.8 g/dL Low 13.0-16.5 [facility] Comment on above: Order Comment: 413-2 Performed By: #### L 300.3900 #### [facility] [address] [place], [address] IG% 0.600 Normal 0.0-0.9 [facility] Comment on above: Order Comment: 413-2 Result Comment: IG% - Immature Granulocytes (promyelocytes, myelocytes and metamyelocytes) > 1% indicates that a LEFT SHIFT is Present. Performed By: #### L 300.3900 #### [facility] [address] [place], [address] Lymphocytes/100 WBC (Bld) 22.0 % Normal 19-41 [facility] Comment on above: Order Comment: 413-2 Performed By: #### L 300.3900 #### [facility] [address] [place], [address] MCH (RBC) [Entitic mass] 29.0 pg Normal 27.0-32.0 [facility] Comment on above: Order Comment: 413-2 Performed By: #### L 300.3900 #### [facility] [address] [place], [address] MCHC (RBC) [Mass/Vol] 31.3 g/dL Low 32-36 [facility] Comment on above: Order Comment: 413-2 Performed By: #### L 300.3900 #### [facility] [address] [place], [address] MCV (RBC) [Entitic vol] 92.7 fL Normal 80-94 [facility] Comment on above: Order Comment: 413-2 Performed By: #### L 300.3900 #### [facility] [address] [place], [address] Monocytes/100 WBC (Bld) 15.6 % High 0-10 [facility] Comment on above: Order Comment: 413-2 Performed By: #### L 300.3900 #### [facility] [address] [place], [address] Neutrophils/100 WBC (Bld) 56.7 % Normal 47-70 [facility] Comment on above: Order Comment: 413-2 Performed By: #### L 300.3900 #### [facility] [address] [place], [address] Nucleated RBC (Bld) [#/Vol] 0 10*3/uL Normal 0-5 [facility] Comment on above: Order Comment: 413-2 Performed By: #### L 300.3900 #### [facility] [address] [place], [address] Platelet mean volume (Bld) [Entitic vol] 9.2 fL Normal 6.2-12.0 [facility] Comment on above: Order Comment: 413-2 Performed By: #### L 300.3900 #### [facility] [address] [place], [address] Platelets (Bld) [#/Vol] 358 10*3/uL Normal 150-450 [facility] Comment on above: Order Comment: 413-2 Performed By: #### L 300.3900 #### [facility] [address] [place], [address] RBC (Bld) [#/Vol] 3.03 10*6/uL Low 4.6-6.2 [facility] Comment on above: Order Comment: 413-2 Performed By: #### L 300.3900 #### [facility] [address] [place], [address] RDW SD 63.1 fl High 35.1-43.9 [facility] Comment on above: Order Comment: 413-2 Performed By: #### L 300.3900 #### [facility] [address] [place], [address] WBC (Bld) [#/Vol] 8.1 10*3/uL Normal 4.4-11.0 [facility] Comment on above: Order Comment: 413-2 Performed By: #### L 300.3900 #### [facility] [address] [place], [address] Carbon dioxide, total [Moles /volume] in Central venous bloodOrdered By: Kayley Melendrez on 02-05-2025 CO2 [Moles/Vol] 25.9 mmol/L 21.0-32.0 [facility] Chloride assayOrdered By: Carmen Melendrez on 02-05-2025 Chloride [Moles/Vol] 93 mmol/L Low 98-108 [facility] Comprehensive Metabolic Prof ilon 02-05-2025 Albumin [Mass/Vol] 3.1 g/dL Low 3.5-5.0 [facility] Comment on above: Order Comment: 413-2 Performed By: #### L 300.3900 #### [facility] [address] [place], [address] Albumin/Globulin [Mass ratio] 0.7 {ratio} Low 0.9-2.4 [facility] Comment on above: Order Comment: 413-2 Performed By: #### L 300.3900 #### [facility] [address] [place], [address] ALK PHOS 260 U/L High 40-129 [facility] Comment on above: Order Comment: 413-2 Performed By: #### L 300.3900 #### [facility] [address] [place], [address] ALT [Catalytic activity/Vol] 11 U/L Normal <=46 [facility] Comment on above: Order Comment: 413-2 Performed By: #### L 300.3900 #### [facility] [address] [place], [address] AST [Catalytic activity/Vol] 42 U/L High <=37 [facility] Comment on above: Order Comment: 413-2 Performed By: #### L 300.3900 #### [facility] [address] [place], [address] Bilirubin [Mass/Vol] 0.81 mg/dL Normal 0.00-1.30 [facility] Comment on above: Order Comment: 413-2 Performed By: #### L 300.3900 #### [facility] [address] [place], [address] BUN/CRE 4.1 RATIO Low 10-20 [facility] Comment on above: Order Comment: 413-2 Performed By: #### L 300.3900 #### [facility] [address] [place], [address] Calcium [Mass/Vol] 10.0 mg/dL Normal 7.6-11.0 [facility] Comment on above: Order Comment: 413-2 Performed By: #### L 300.3900 #### [facility] [address] [place], [address] Chloride [Moles/Vol] 93 mmol/L Low 98-108 [facility] Comment on above: Order Comment: 413-2 Performed By: #### L 300.3900 #### [facility] [address] [place], [address] CO2 [Moles/Vol] 25.9 mmol/L Normal 21.0-32.0 [facility] Comment on above: Order Comment: 413-2 Performed By: #### L 300.3900 #### [facility] [address] [place], [address] Creatinine [Mass/Vol] 5.27 mg/dL High 0.70-1.20 [facility] Comment on above: Order Comment: 413-2 Performed By: #### L 300.3900 #### [facility] [address] [place], [address] GAP 18 High 5-15 [facility] Comment on above: Order Comment: 413-2 Performed By: #### L 300.3900 #### [facility] [address] [place], [address] GFR/1.73 sq M.predicted among non-blacks MDRD (S/P/Bld) [Vol rate/Area] 12 mL/min/{1.73_m2} Low >60 [facility] Comment on above: Order Comment: 413-2 Result Comment: mL/m in/1.73m2 CKD-EPI Creatinine Equation (2020) Performed By: #### L 300.3900 #### [facility] [address] [place], [address] Globulin (S) [Mass/Vol] 4.3 g/dL High 2.2-4.2 [facility] Comment on above: Order Comment: 413-2 Performed By: #### L 300.3900 #### [facility] [address] [place], [address] Glucose [Mass/Vol] 65 mg/dL Low 70-99 [facility] Comment on above: Order Comment: 413-2 Performed By: #### L 300.3900 #### [facility] [address] [place], [address] Potassium [Moles/Vol] 4.5 mmol/L Normal 3.3-5.1 [facility] Comment on above: Order Comment: 413-2 Performed By: #### L 300.3900 #### [facility] [address] [place], [address] Sodium [Moles/Vol] 136 mmol/L Normal 133-145 [facility] Comment on above: Order Comment: 413-2 Performed By: #### L 300.3900 #### [facility] [address] [place], [address] T PROT 7.4 g/dL Normal 5.9-8.4 [facility] Comment on above: Order Comment: 413-2 Performed By: #### L 300.3900 #### [facility] [address] [place], [address] Urea nitrogen [Mass/Vol] 22 mg/dL High 4-19 [facility] Comment on above: Order Comment: 413-2 Performed By: #### L 300.3900 #### [facility] [address] [place], [address] Eosinophil percentageOrdered By: Kayley Melendrez on 02-05-2025 Eosinophils/100 WBC (Bld) 4.1 % 0-5 [facility] Erythrocyte distribution wid th ratioOrdered By: Kayley Melendrez on 02-05-2025 Erythrocyte distribution width (RBC) [Ratio] 18.8 % High 11.6-14.6 [facility] Erythrocyte distribution wid th standard deviationOrdered By: Kayley Melendrez on 02-05-2025 Erythrocyte distribution width (RBC) [Ratio] 63.1 fl High 35.1-43.9 [facility] Glomerular filtration rate ( GFR) estimation/1.73 sq m using serum, plasma, or whole bOrdered By: Kayley Melendrez on 02-05-2025 GFR/1.73 sq M.predicted among non-blacks MDRD (S/P/Bld) [Vol rate/Area] 12 mL/min/{1.73_m2} Low >60 [facility] Comment on above: mL/min/1.73m2 CKD-EP I Creatinine Equation (2020) Hematocrit Auto (Bld) [Volum e fraction]Ordered By: Kayley Melendrez on 02-05-2025 Hematocrit (Bld) [Volume fraction] 28.1 % Low 40-54 [facility] Hemoglobin measurementOrdere d By: Kayley Melendrez on 02-05-2025 Hemoglobin (Bld) [Mass/Vol] 8.8 g/dL Low 13.0-16.5 [facility] Immature granulocytes/100 WB C Auto (Bld)Ordered By: Kayley Melendrez on 02-05-2025 Immature granulocytes/100 WBC (Bld) 0.600 % 0.0-0.9 [facility] Comment on above: IG% - Immature Granu locytes (promyelocytes, myelocytes and metamyelocytes) > 1% indicates that a LEFT SHIFT is Present. Laboratory - Chemistry and C hemistry - challengeOrdered By: Kayley Melendrez on 02-05-2025 AST [Catalytic activity/Vol] 42 U/L High <38 [facility] MCV (mean corpuscular volume ) determinationOrdered By: Kayley Melendrez on 02-05-2025 MCV (RBC) [Entitic vol] 92.7 fL 80-94 [facility] Mean corpuscular hemoglobin (MCH) determinationOrdered By: Kayley Melendrez on 02-05-2025 MCH (RBC) [Entitic mass] 29.0 pg 27.0-32.0 [facility] Mean corpuscular hemoglobin concentration (MCHC) determinationOrdered By: Kayley Melendrez on 02-05-2025 MCHC (RBC) [Mass/Vol] 31.3 g/dL Low 32-36 [facility] Mean platelet volume determi nationOrdered By: Kayley Melendrez on 02-05-2025 Platelet mean volume (Bld) [Entitic vol] 9.2 fL 6.2-12.0 [facility] Monocyte percentageOrdered B y: Kayley Melendrez on 02-05-2025 Monocytes/100 WBC (Bld) 15.6 % High 0-10 [facility] Neutrophil percentageOrdered By: Kayley Melendrez on 02-05-2025 Neutrophils/100 WBC (Bld) 56.7 % 47-70 [facility] Nucleated red blood cell per centageOrdered By: Kayley Melendrez on 02-05-2025 Nucleated RBC/100 WBC (Bld) [Ratio] 0 % 0-5 [facility] Platelet countOrdered By: Carmen Melendrez on 02-05-2025 Platelets (Bld) [#/Vol] 358 10*3/uL 150-450 [facility] Potassium measurement (mass/ volume)Ordered By: Kayley Melendrez on 02-05-2025 Potassium (Unsp spec) [Mass/Vol] 4.5 mmol/L 3.3-5.1 [facility] RBC Auto (Bld) [#/Vol]Ordere d By: Kayley Melendrez on 02-05-2025 RBC (Bld) [#/Vol] 3.03 10*6/uL Low 4.6-6.2 [facility] Serum creatinine measurement (mass/volume)Ordered By: Kayley Melendrez on 02-05-2025 Creatinine [Mass/Vol] 5.27 mg/dL High 0.70-1.20 [facility] Serum globulin measurementOr dered By: Kayley Melendrez on 02-05-2025 Globulin (S) [Mass/Vol] 4.3 g/dL High 2.2-4.2 [facility] Serum glucose measurement (m ass/volume)Ordered By: Kayley Melendrez on 02-05-2025 Glucose [Mass/Vol] 65 mg/dL Low 70-99 [facility] Serum or plasma alanine mayorga otransferase (ALT) measurementOrdered By: Kayley Melendrez on 02-05-2025 ALT [Catalytic activity/Vol] 11 U/L <47 [facility] Serum or plasma albumin audrey urement (mass/volume)Ordered By: Kayley Melendrez on 02-05-2025 Albumin [Mass/Vol] 3.1 g/dL Low 3.5-5.0 [facility] Serum or plasma albumin/glob ulin mass ratioOrdered By: Kayley Melendrez on 02-05-2025 Albumin/Globulin [Mass ratio] 0.7 {ratio} Low 0.9-2.4 [facility] Serum or plasma alkaline jacob sphatase measurementOrdered By: Kayley Melendrez on 02-05-2025 ALP [Catalytic activity/Vol] 260 U/L High 40-129 [facility] Serum or plasma calcium audrey urement (mass/volume)Ordered By: Kayley Melendrez on 02-05-2025 Calcium [Mass/Vol] 10.0 mg/dL 7.6-11.0 [facility] Serum or plasma urea nitroge n measurement (mass/volume)Ordered By: Kayley Melendrez on 02-05-2025 Urea nitrogen [Mass/Vol] 22 mg/dL High 4-19 [facility] Sodium levelOrdered By: Omega Melendrez on 02-05-2025 Sodium [Moles/Vol] 136 mmol/L 133-145 [facility] Total proteinOrdered By: Lexis Melendrez on 02-05-2025 Protein [Mass/Vol] 7.4 g/dL 5.9-8.4 [facility] White blood cell (WBC) count Ordered By: Kayley Melendrez on 02-05-2025 WBC (Bld) [#/Vol] 8.1 10*3/uL 4.4-11.0 [facility] 36on 02-02-2025 36 Normal [facility] 36 Patient discharged to [facility] [phone], spoke to nurse Delilah to verify orders, follow up appointment and tunneled line removal. Normal [facility] Progress Noteon 02-02-2025 Progress Note Normal [facility] Progress [facility] Updated tracker with hospital doses. Warfarin dosing instructions: 0.5 mg per day. New interacting meds: N/a Next SAILAJA appt: post SNF Normal [facility] Progress Note Patient was readmitted on 02/20 and discharged back to [facility] on 03/05. Normal [facility] Progress Note Patient is still at [facility] ([phone]). I left a message for ELIA Anderson, regarding discharge plans. Normal [facility] [id number] 02-01-2025 [id number] created in HENS per TCC request. Facility notified via [employer]. [facility] [phone] [facility] CBC (HEMOGRAM)on 02-01-2025 Erythrocyte distribution width (RBC) [Ratio] 18.8 % High 11.5-15.0 [facility] Comment on above: Performed By: #### L [id number] ####[employer] Associate: DOMENICA JARA ([id number])[address] Hematocrit (Bld) [Volume fraction] 28.3 % Low 40.0-52.0 [facility] Comment on above: Performed By: #### L [id number] ####[employer] Associate: DOMENICA [id number])[address] Hemoglobin (Bld) [Mass/Vol] 8.9 g/dL Low 13.0-18.0 [facility] Comment on above: Performed By: #### L [id number] ####[employer] Associate: DOMENICA [id number])[address] MCH (RBC) [Entitic mass] 28.2 pg Normal 26.0-34.0 [facility] Comment on above: Performed By: #### L [id number] ####Loss Prevention Associate: DOMENICA [id number])[facility] ([facility])[address] [place] [address] MCHC 31.4 % Normal 30.5-36.0 [facility] Comment on above: Performed By: #### L [id number] ####Loss Prevention Associate: DOMENICA JARA ([id number])[facility] ([facility])[address] [place] [address] MCV (RBC) [Entitic vol] 89.6 fL Normal 77.0-99.0 [facility] Comment on above: Performed By: #### L [id number] ####Loss Prevention Associate: DOMENICA JARA ([id number])[facility])[address] [place] [address] Platelet mean volume (Bld) [Entitic vol] 9.0 fL Normal 9.0-12.7 [facility] Comment on above: Performed By: #### L [id number] ####Loss Prevention Associate: DOMENICA JARA ([id number])[facility] ([facility])[address] [place] [address] Platelets (Bld) [#/Vol] 282 10*3/uL Normal 140-440 [facility] Comment on above: Performed By: #### L [id number] ####Loss Prevention Associate: DOMENICA JARA ([id number])[facility])[address] [place] [address] RBC (Bld) [#/Vol] 3.16 10*6/uL Low 4.40-5.90 [facility] Comment on above: Performed By: #### L [id number] ####Loss Prevention Associate: DOMENICA JARA ([id number])[facility] ([facility])[address] [place] [address] WBC (Bld) [#/Vol] 7.9 10*3/uL Normal 3.6-10.7 [facility] Comment on above: Performed By: #### L [id number] ####Loss Prevention Associate: DOMENICA JARA ([id number])[facility] ([facility])[address] [place] [address] CBC panel Auto (Bld)on 02-01 Erythrocyte distribution width (RBC) [Ratio] 18.8 % High 11.5 - 15.0 % [facility] Hematocrit (Bld) [Volume fraction] 28.3 % Low 40.0 - 52.0 % [facility] Hemoglobin (Bld) [Mass/Vol] 8.9 g/dL Low 13.0 - 18.0 g/dL [facility] Interpretation and review of laboratory results Abnormal [facility] MCH (RBC) [Entitic mass] 28.2 pg 26. 0 - 34.0 pg [facility] MCHC (RBC) [Mass/Vol] 31.4 % 30.5 - 36.0 % [facility] MCV (RBC) [Entitic vol] 89.6 fL 77.0 - 99.0 fL [facility] Platelet mean volume (Bld) [Entitic vol] 9 fL 9.0 - 12.7 fL [facility] Platelets (Bld) [#/Vol] 282 10*3/uL 140 - 440 10*3/uL [facility] RBC (Bld) [#/Vol] 3.16 10*6/uL Low 4.40 - 5.9 0 10*6/uL [facility] WBC (Bld) [#/Vol] 7.9 10*3/uL 3.6 - 10.7 10*3/uL [facility] COMPREHENSIVE METABOLIC PANE Victor M 02-01-2025 Albumin [Mass/Vol] 2.1 g/dL Low 3.5-5.0 [facility] Comment on above: Performed By: #### L AB103, [id number], LAB17 ####Loss Prevention Associate: DOMENICA JARA ([id number])[facility])[address] [place] [address] ALP [Catalytic activity/Vol] 226 U/L High 40-150 [facility] Comment on above: Performed By: #### L AB103, [id number], LAB17 ####Loss Prevention Associate: DOMENICA JARA ([id number])[facility])[address] [place] [address] ALT [Catalytic activity/Vol] 10 U/L Normal <40 [facility] Comment on above: Performed By: #### L AB103, [id number], LAB17 ####Loss Prevention Associate: DOMENICA JARA ([id number])[facility] [place] [address] Anion gap [Moles/Vol] 11 mmol/L Normal 3-13 [facility] Comment on above: Performed By: #### L AB103, [id number], LAB17 ####Loss Prevention Associate: DOMENICA JARA ([id number])[facility] [place] [address] AST [Catalytic activity/Vol] 32 U/L Normal <34 [facility] Comment on above: Performed By: #### L AB103, [id number], LAB17 ####Loss Prevention Associate: DOMENICA JARA ([id number])[facility] ([facility])[address] [place] [address] Bilirubin [Mass/Vol] 0.9 mg/dL Normal <1.2 [facility] Comment on above: Performed By: #### L AB103, [id number], LAB17 ####Loss Prevention Associate: DOMENICA JARA ([id number])[facility] ([facility])[address] [place] [address] Calcium [Mass/Vol] 9.7 mg/dL Normal 8.4-10.2 [facility] Comment on above: Performed By: #### L AB103, [id number], LAB17 ####Loss Prevention Associate: DOMENICA JARA ([id number])[facility] ([facility])[address] [place] [address] [place] Chloride [Moles/Vol] 99 mmol/L Normal 98-107 [facility] Comment on above: Performed By: #### L AB103, FSC174, LAB17 ####Loss Prevention Associate: DOMENICA JARA ([id number])[facility])[address] [place] [address] CO2 [Moles/Vol] 26 mmol/L Normal 22-29 [facility] Comment on above: Performed By: #### L AB103, [id number], LAB17 ####Loss Prevention Associate: DOMENICA JARA ([id number])[facility])[address] [place] [address] Creatinine [Mass/Vol] 2.39 mg/dL High 0.72-1.25 [facility] Comment on above: Performed By: #### L AB103, [id number], LAB17 ####Loss Prevention Associate: DOMENICA JARA ([id number])[facility])[address] [place] [address] [place] GLOMERULAR FILTRATION RATE ML/MIN/1.73 SQ M.PREDICTED 30.5 mL/min/1.73m*2 Low >60.0 [facility] Comment on above: Result Comment: Calc ulation based on the Chronic Kidney Disease Epidemiology Collaboration (CKD-EPI) equation refit without adjustment for race Performed By: #### L AB103, [id number], LAB17 ####Loss Prevention Associate: DOMENICA JARA ([id number])[facility])[address] [place] [address] Glucose [Mass/Vol] 87 mg/dL Normal 74-100 [facility] Comment on above: Performed By: #### L AB103, [id number], LAB17 ####Loss Prevention Associate: DOMENICA JARA ([id number])[facility])[address] [place] [address] [place] Potassium [Moles/Vol] 3.7 mmol/L Normal 3.5-5.1 [facility] Comment on above: Result Comment: [facility] potassium values may be up to 0.5 mmol/L lower than serum values. Performed By: #### L AB103, [id number], LAB17 ####Loss Prevention Associate: DOMENICA JARA ([id number])[facility])[address] [place] [address] [place] Protein [Mass/Vol] 7.4 g/dL Normal 6.4-8.3 [facility] Comment on above: Performed By: #### L AB103, [id number], LAB17 ####Loss Prevention Associate: DOMENICA JARA ([id number])[facility])[address] [place] [address] [place] Sodium [Moles/Vol] 136 mmol/L Normal 136-145 [facility] Comment on above: Performed By: #### L AB103, [id number], LAB17 ####Loss Prevention Associate: DOMENICA JARA ([id number])[facility] [place] [address] Urea nitrogen [Mass/Vol] 7 mg/dL Low 9-23 [facility] Comment on above: Performed By: #### L AB103, [id number], LAB17 ####Loss Prevention Associate: DOMENICA JARA ([id number])[facility] [place] [address] Comprehensive metabolic 1998 panelon 02-01-2025 Albumin [Mass/Vol] 2.1 g/dL Low 3.5 - 5.0 g/dL [facility] ALP [Catalytic activity/Vol] 226 U/L High 40 - 150 U/L [facility] ALT [Catalytic activity/Vol] 10 U/L NINF - 40 U/L [facility] Anion gap [Moles/Vol] 11 mmol/L 3 - 13 mmol/L [facility] AST [Catalytic activity/Vol] 32 U/L NINF - 34 U/L [facility] Bilirubin [Mass/Vol] 0.9 mg/dL NINF - 1.2 mg/dL [facility] Calcium [Mass/Vol] 9.7 mg/dL 8.4 - 10. 2 mg/dL [facility] Chloride [Moles/Vol] 99 mmol/L 98 - 10 7 mmol/L [facility] CO2 [Moles/Vol] 26 mmol/L 22 - 29 mmol/L [facility] Creatinine [Mass/Vol] 2.39 mg/dL High 0.72 - 1.25 mg/dL [facility] GFR/1.73 sq M.predicted (S/P/Bld) [Vol rate/Area] 30.5 mL/min Low - PINF [facility] Glucose [Mass/Vol] 87 mg/dL 74 - 100 mg/dL [facility] Interpretation and review of laboratory results Abnormal [facility] Potassium [Moles/Vol] 3.7 mmol/L 3.5 - 5.1 mmol/L [facility] Protein [Mass/Vol] 7.4 g/dL 6.4 - 8.3 g/dL [facility] Sodium [Moles/Vol] 136 mmol/L 136 - 145 mmol/L [facility] Urea nitrogen [Mass/Vol] 7 mg/dL Low 9 - 23 mg/d L [facility] HEMOGLOBIN AND HEMATOCRIT, B LOODon 02-01-2025 Hematocrit (Bld) [Volume fraction] 28.8 % Low 40.0-52.0 [facility] Comment on above: Performed By: #### L AB753 ####Loss Prevention Associate: DOMENICA JARA ([id number])[address] Hemoglobin (Bld) [Mass/Vol] 8.9 g/dL Low 13.0-18.0 [facility] Comment on above: Performed By: #### L AB753 ####Loss Prevention Associate: DOMENICA JARA ([id number])[address] Hemoglobin (Bld) [Mass/Vol]O rdered By: Rosa Juares on 02-01-2025 Hematocrit (Bld) [Volume fraction] 28.8 % Low 40.0 - 52.0 % [facility] Interpretation and review of laboratory results Abnormal [facility] Laboratory - Chemistry and C hemistry - challengeon 02-01-2025 Magnesium [Mass/Vol] 1.9 mg/dL 1.6 - 2 .6 mg/dL [facility] Laboratory - Coagulationon 0 02-01-2025 PT Coag (Bld) [Time] 20.3 s High 9.0 - 12.0 s [facility] - Hematology and Cell countsOrdered By: Rosa Juares on 02-01-2025 Hemoglobin (Bld) [Mass/Vol] 8.9 g/dL Low 13.0 - 18.0 g/dL [facility] MAGNESIUMon 02-01-2025 Magnesium [Mass/Vol] 1.9 mg/dL Normal 1.6-2.6 [facility] Comment on above: Result Comment: ORDE R COMMENTS:Higher values can be expected in females during menses. Performed By: #### L AB103, [id number], LAB17 ####Loss Prevention Associate: DOMENICA JARA ([id number])[facility] ([facility])[address] [place] [address] [place] Magnesium [Mass/Vol]on 02-01 [facility] No Panel Informationon 02-01 Interpretation and review of laboratory results Normal [facility] Nursing Noteon 02-01-2025 Nursing Note Transport here to take patient to [facility]. Wound Vac tubing clamped and disconnected from wound vac. Facility will determine if tubing is compatible with their wound vacs. Normal [facility] PHOSPHORUSon 02-01-2025 Phosphate [Mass/Vol] 3.4 mg/dL Normal 2.3-4.7 [facility] Comment on above: Performed By: #### L AB103, [id number], LAB17 ####Loss Prevention Associate: DOMENICA JARA ([id number])[facility] ([facility])[address] [place] [address] [place] PROTHROMBIN TIMEon INR Coag (PPP) [Relative time] 2.0 {INR} High 0.9-1.1 [facility] Comment on above: Result Comment: Vaughn [...] Myocardial Infarction Performed By: #### L AB320 ####Loss Prevention Associate: DOMENICA JARA ([id number])[facility] ([facility])[address] [place] [address] [place] PT Coag (PPP) [Time] 20.3 s High 9.0-12.0 [facility] Comment on above: Performed By: #### L AB320 ####Loss Prevention Associate: DOMENICA JARA ([id number])[facility] ([facility])[address] [place] [address] [place] PT Coag (Bld) [Time]on 02-01 INR Coag (PPP) [Relative time] 2 {INR} High 0.9 - 1.1 [facility] Interpretation and review of laboratory results Abnormal [facility] Phosphate [Moles/Vol]on Phosphate [Mass/Vol] 3.4 mg/dL 2.3 - 4 .7 mg/dL [facility] Progress Noteon 02-01-2025 Progress Note Normal [facility] Progress Note [facility] Progress [facility] Normal [facility] Progress [facility] Normal [facility] Progress [facility] Normal [facility] Progress Note Normal [facility] 30on 01-31-2025 30 Normal [facility] 30 Normal [facility] [id number] 01-31-2025 [id number] Updates placed to [facility] via Careport per TCC request. Await review and response regarding ability to accept. TCC notified. Electronically signed by NELSON Rodrigues Normal [facility] CBC (HEMOGRAM)on 01-31-2025 Erythrocyte distribution width (RBC) [Ratio] 19.2 % High 11.5-15.0 [facility] Comment on above: Performed By: #### L [id number] ####Loss Prevention Associate: DOMENICA [id number])[address] Hematocrit (Bld) [Volume fraction] 27.9 % Low 40.0-52.0 [facility] Comment on above: Performed By: #### L AB294 ####Loss Prevention Associate: DOMENICA JARA ([id number])[address] Hemoglobin (Bld) [Mass/Vol] 8.8 g/dL Low 13.0-18.0 [facility] Comment on above: Performed By: #### L AB294 ####Loss Prevention Associate: DOMENICA JARA ([id number])[facility])[address] [place] [address] MCH (RBC) [Entitic mass] 28.4 pg Normal 26.0-34.0 [facility] Comment on above: Performed By: #### L AB294 ####Loss Prevention Associate: DOMENICA JARA ([id number])[facility])[address] [place] [address] MCHC 31.5 % Normal 30.5-36.0 [facility] Comment on above: Performed By: #### L AB294 ####Loss Prevention Associate: DOMENICA JARA ([id number])[facility] ([facility])[address] [place] [address] MCV (RBC) [Entitic vol] 90.0 fL Normal 77.0-99.0 [facility] Comment on above: Performed By: #### L AB294 ####Loss Prevention Associate: DOMENICA JARA ([id number])[facility])[address] [place] [address] Platelet mean volume (Bld) [Entitic vol] 9.0 fL Normal 9.0-12.7 [facility] Comment on above: Performed By: #### L AB294 ####Loss Prevention Associate: DOMENICA JARA ([id number])[facility])[address] [place] [address] Platelets (Bld) [#/Vol] 278 10*3/uL Normal 140-440 [facility] Comment on above: Performed By: #### L AB294 ####Loss Prevention Associate: DOMENICA JARA ([id number])[facility])[address] [place] [address] RBC (Bld) [#/Vol] 3.10 10*6/uL Low 4.40-5.90 [facility] Comment on above: Performed By: #### L AB294 ####Loss Prevention Associate: DOMENICA JARA ([id number])[facility])[address] [place] [address] WBC (Bld) [#/Vol] 9.3 10*3/uL Normal 3.6-10.7 [facility] Comment on above: Performed By: #### L AB294 ####Loss Prevention Associate: DOMENICA JARA ([id number])[facility] ([facility])[address] [place] [address] CBC panel Auto (Bld)on 01-31 Erythrocyte distribution width (RBC) [Ratio] 19.2 % High 11.5 - 15.0 % [facility] Hematocrit (Bld) [Volume fraction] 27.9 % Low 40.0 - 52.0 % [facility] Hemoglobin (Bld) [Mass/Vol] 8.8 g/dL Low 13.0 - 18.0 g/dL [facility] Interpretation and review of laboratory results Abnormal [facility] MCH (RBC) [Entitic mass] 28.4 pg 26. 0 - 34.0 pg [facility] MCHC (RBC) [Mass/Vol] 31.5 % 30.5 - 36.0 % [facility] MCV (RBC) [Entitic vol] 90 fL 77.0 - 99.0 fL [facility] Platelet mean volume (Bld) [Entitic vol] 9 fL 9.0 - 12.7 fL [facility] Platelets (Bld) [#/Vol] 278 10*3/uL 140 - 440 10*3/uL [facility] RBC (Bld) [#/Vol] 3.1 10*6/uL Low 4.40 - 5.9 0 10*6/uL [facility] WBC (Bld) [#/Vol] 9.3 10*3/uL 3.6 - 10.7 10*3/uL [facility] COMPREHENSIVE METABOLIC PANE Victor M 01-31-2025 Albumin [Mass/Vol] 2.1 g/dL Low 3.5-5.0 [facility] Comment on above: Performed By: #### L AB113, LAB17, [id number] ####Loss Prevention Associate: DOMENICA JARA ([id number])[facility] ([facility])[address] [place] [address] ALP [Catalytic activity/Vol] 218 U/L High 40-150 [facility] Comment on above: Performed By: #### L AB113, LAB17, [id number] ####Loss Prevention Associate: DOMENICA JARA ([id number])[facility] [place] [address] [place] ALT [Catalytic activity/Vol] 11 U/L Normal <40 [facility] Comment on above: Performed By: #### L AB113, LAB17, [id number] ####Loss Prevention Associate: DOMENICA JARA ([id number])[facility] [place] [address] Anion gap [Moles/Vol] 12 mmol/L Normal 3-13 [facility] Comment on above: Performed By: #### L AB113, LAB17, [id number] ####Loss Prevention Associate: DOMENICA JARA ([id number])[facility] ([facility])[address] [place] [address] AST [Catalytic activity/Vol] 31 U/L Normal <34 [facility] Comment on above: Performed By: #### Tameka ABAruna, LAB17, [id number] ####Loss Prevention Associate: DOMENICA JARA ([id number])[facility] ([facility])[address] [place] [address] [place] Bilirubin [Mass/Vol] 0.8 mg/dL Normal <1.2 [facility] Comment on above: Performed By: #### Tameka ABAruna, LAB17, [id number] ####Loss Prevention Associate: DOMENICA JARA ([id number])[facility] ([facility])[address] [place] [address] [place] Calcium [Mass/Vol] 10.0 mg/dL Normal 8.4-10.2 [facility] Comment on above: Performed By: #### L AB113, LAB17, [id number] ####Loss Prevention Associate: DOMENICA JARA ([id number])[facility] ([facility])[address] [place] [address] [place] Chloride [Moles/Vol] 99 mmol/L Normal 98-107 [facility] Comment on above: Performed By: #### L AB113, LAB17, [id number] ####Loss Prevention Associate: DOMENICA JARA ([id number])[facility] ([facility])[address] [place] [address] [place] CO2 [Moles/Vol] 27 mmol/L Normal 22-29 [facility] Comment on above: Performed By: #### Tameka ABAruna, LAB17, [id number] ####Loss Prevention Associate: DOMENICA JARA ([id number])[facility] ([facility])[address] [place] [address] [place] Creatinine [Mass/Vol] 3.64 mg/dL High 0.72-1.25 [facility] Comment on above: Performed By: #### Tameka ABAruna, LAB17, [id number] ####Loss Prevention Associate: DOMENICA JARA ([id number])[facility] ([facility])[address] [place] [address] [place] GLOMERULAR FILTRATION RATE ML/MIN/1.73 SQ M.PREDICTED 18.4 mL/min/1.73m*2 Low >60.0 [facility] Comment on above: Result Comment: Calc ulation based on the Chronic Kidney Disease Epidemiology Collaboration (CKD-EPI) equation refit without adjustment for race Performed By: #### Tameka GIMENEZ, LAB17, [id number] ####Loss Prevention Associate: DOMENICA JARA ([id number])[facility] ([facility])[address] [place] [address] [place] Glucose [Mass/Vol] 87 mg/dL Normal 74-100 [facility] Comment on above: Performed By: #### Tameka GIMENEZ, LAB17, [id number] ####Loss Prevention Associate: DOMENICA JARA ([id number])[facility])[address] [place] [address] [place] Potassium [Moles/Vol] 4.3 mmol/L Normal 3.5-5.1 [facility] Comment on above: Result Comment: [facility] potassium values may be up to 0.5 mmol/L lower than serum values. Performed By: #### L AB113, LAB17, [id number] ####Loss Prevention Associate: DOMENICA JARA ([id number])[facility] ([facility])[address] [place] [address] [place] Protein [Mass/Vol] 7.3 g/dL Normal 6.4-8.3 [facility] Comment on above: Performed By: #### L AB113, LAB17, [id number] ####Loss Prevention Associate: DOMENICA JAAR ([id number])[facility])[address] [place] [address] Sodium [Moles/Vol] 138 mmol/L Normal 136-145 [facility] Comment on above: Performed By: #### L AB113, LAB17, [id number] ####Loss Prevention Associate: DOMENICA JARA ([id number])[facility])[address] [place] [address] Urea nitrogen [Mass/Vol] 15 mg/dL Normal 9-23 [facility] Comment on above: Performed By: #### Tameka AB113, LAB17, [id number] ####Loss Prevention Associate: DOMENICA JARA ([id number])[facility] ([facility])[address] [place] [address] Comprehensive metabolic 1998 panelon 01-31-2025 Albumin [Mass/Vol] 2.1 g/dL Low 3.5 - 5.0 g/dL [facility] ALP [Catalytic activity/Vol] 218 U/L High 40 - 150 U/L [facility] ALT [Catalytic activity/Vol] 11 U/L NINF - 40 U/L [facility] Anion gap [Moles/Vol] 12 mmol/L 3 - 13 mmol/L [facility] AST [Catalytic activity/Vol] 31 U/L [facility] 34 U/L [facility] Bilirubin [Mass/Vol] 0.8 mg/dL NINF - 1.2 mg/dL [facility] Calcium [Mass/Vol] 10 mg/dL 8.4 - 10. 2 mg/dL [facility] Chloride [Moles/Vol] 99 mmol/L 98 - 10 7 mmol/L [facility] CO2 [Moles/Vol] 27 mmol/L 22 - 29 mmol/L [facility] Creatinine [Mass/Vol] 3.64 mg/dL High 0.72 - 1.25 mg/dL [facility] GFR/1.73 sq M.predicted (S/P/Bld) [Vol rate/Area] 18.4 mL/min Low - PINF [facility] Glucose [Mass/Vol] 87 mg/dL 74 - 100 mg/dL [facility] Interpretation and review of laboratory results Abnormal [facility] Potassium [Moles/Vol] 4.3 mmol/L 3.5 - 5.1 mmol/L [facility] Protein [Mass/Vol] 7.3 g/dL 6.4 - 8.3 g/dL [facility] Sodium [Moles/Vol] 138 mmol/L 136 - 145 mmol/L [facility] Urea nitrogen [Mass/Vol] 15 mg/dL 9 - 23 mg/d L [facility] HEMOGLOBIN AND HEMATOCRIT, B LOODon 01-31-2025 Hematocrit (Bld) [Volume fraction] 28.8 % Low 40.0-52.0 [facility] Comment on above: Performed By: #### L AB753 ####Loss Prevention Associate: DOMENICA JARA ([id number])[address] Hemoglobin (Bld) [Mass/Vol] 9.2 g/dL Low 13.0-18.0 [facility] Comment on above: Performed By: #### L AB753 ####Loss Prevention Associate: DOMENICA JARA ([id number])[facility] ([facility])[address] [place] [address] Hemoglobin (Bld) [Mass/Vol]o n 01-31-2025 Hematocrit (Bld) [Volume fraction] 28.8 % Low 40.0 - 52.0 % [facility] Interpretation and review of laboratory results Abnormal [facility] Laboratory - Chemistry and C hemistry - challengeon 01-31-2025 Magnesium [Mass/Vol] 2 mg/dL 1.6 - 2 .6 mg/dL [facility] Laboratory - Coagulationon 0 01-31-2025 PT Coag (Bld) [Time] 22.4 s High 9.0 - 12.0 s [facility] Laboratory - Hematology and Cell countson 01-31-2025 Hemoglobin (Bld) [Mass/Vol] 9.2 g/dL Low 13.0 - 18.0 g/dL [facility] MAGNESIUMon 01-31-2025 Magnesium [Mass/Vol] 2.0 mg/dL Normal 1.6-2.6 [facility] Comment on above: Result Comment: ARPAN Kaplan COMMENTS:Higher values can be expected in females during menses. Performed By: #### L AB113, LAB17, [id number] ####Loss Prevention Associate: DOMENICA JARA ([id number])[facility])[address] [place] [address] Magnesium [Mass/Vol]on 01-31 [facility] No Panel Informationon 01-31 Interpretation and review of laboratory results Normal [facility] Nursing Noteon 01-31-2025 Nursing Note Wound Vac Dressing leaking with foam falling out. Dressing removed and W-D drsg applied. Normal [facility] Nursing Note Patient is out of room at time of visit. Will continue to follow patient for wound care needs. Wanda Quesada RN Normal [facility] Nursing Note Normal [facility] PHOSPHORUSon 01-31-2025 Phosphate [Mass/Vol] 4.6 mg/dL Normal 2.3-4.7 [facility] Comment on above: Performed By: #### L AB113, LAB17, [id number] ####Loss Prevention Associate: DOMENICA JAAR ([id number])[facility])[address] [place] [address] PROTHROMBIN TIMEon INR Coag (PPP) [Relative time] 2.2 {INR} High 0.9-1.1 [facility] Comment on above: Result Comment: Vaughn [...] Myocardial Infarction Performed By: #### L AB320 ####Loss Prevention Associate: DOMENICA JARA ([id number])[facility])[address] [place] [address] PT Coag (PPP) [Time] 22.4 s High 9.0-12.0 [facility] Comment on above: Performed By: #### L AB320 ####Loss Prevention Associate: DOMENICA JARA ([id number])[facility] ([facility])[address] [place] [address] PT Coag (Bld) [Time]on 01-31 INR Coag (PPP) [Relative time] 2.2 {INR} High 0.9 - 1.1 [facility] Interpretation and review of laboratory results Abnormal [facility] Phosphate [Moles/Vol]on Phosphate [Mass/Vol] 4.6 mg/dL 2.3 - 4 .7 mg/dL [facility] Progress Noteon 01-31-2025 Progress Note Normal [facility] Progress Note Normal [facility] Progress Note Normal [facility] Progress Note Normal [facility] Progress Note OCCUPATIONAL THERAPY [facility] Name/MRN: Jair Snyder ([id number]) Date: 01/31/2025 Attempted OT re-eval this AM, pt OOR at dialysis. Will follow and re-attempt as able. Giuliana Baird, OTR/L Normal [facility] Progress Note Normal [facility] Progress Note Normal [facility] Progress Note Normal [facility] Progress Note Normal [facility] 30on 01-30-2025 30 Normal [facility] [id number] 01-30-2025 [id number] Message sent to [employer] Animal Veterinarian to start [facility] auth for [place] [employer] [place]. Normal [facility] [phone] Normal [facility] BASIC METABOLIC PANELon Anion gap [Moles/Vol] 13 mmol/L Normal 3-13 [facility] Comment on above: Performed By: #### L AB103, [id number], LAB15 ####Loss Prevention Associate: DOMENICA JARA ([id number])[facility] ([facility])[address] [place] [address] Calcium [Mass/Vol] 9.6 mg/dL Normal 8.4-10.2 [facility] Comment on above: Performed By: #### L AB103, [id number], LAB15 ####Loss Prevention Associate: DOMENICA JARA ([id number])[facility])[address] [place] [address] Chloride [Moles/Vol] 99 mmol/L Normal 98-107 [facility] Comment on above: Performed By: #### L AB103, AYA096, LAB15 ####Loss Prevention Associate: DOMENICA JARA ([id number])[facility])[address] [place] [address] CO2 [Moles/Vol] 23 mmol/L Normal 22-29 [facility] Comment on above: Performed By: #### L AB103, IAX863, LAB15 ####Loss Prevention Associate: DOMENICA JARA ([id number])[facility])[address] [place] [address] Creatinine [Mass/Vol] 2.56 mg/dL High 0.72-1.25 [facility] Comment on above: Performed By: #### L AB103, [id number], LAB15 ####Loss Prevention Associate: DOMENICA JARA ([id number])[facility])[address] [place] [address] GLOMERULAR FILTRATION RATE ML/MIN/1.73 SQ M.PREDICTED 28.1 mL/min/1.73m*2 Low >60.0 [facility] Comment on above: Result Comment: Calc ulation based on the Chronic Kidney Disease Epidemiology Collaboration (CKD-EPI) equation refit without adjustment for race Performed By: #### L AB103, SSL462, LAB15 ####Loss Prevention Associate: DOMENICA JARA ([id number])[facility] ([facility])[address] [place] [address] Glucose [Mass/Vol] 88 mg/dL Normal 74-100 [facility] Comment on above: Performed By: #### L AB103, CSJ127, LAB15 ####Loss Prevention Associate: DOMENICA JARA ([id number])[facility])[address] [place] [address] [place] Potassium [Moles/Vol] 3.7 mmol/L Normal 3.5-5.1 [facility] Comment on above: Result Comment: [facility] potassium values may be up to 0.5 mmol/L lower than serum values. Performed By: #### L AB103, [id number], LAB15 ####Loss Prevention Associate: DOMENICA JARA ([id number])[facility] ([facility])[address] [place] [address] Sodium [Moles/Vol] 135 mmol/L Low 136-145 [facility] Comment on above: Performed By: #### L AB103, [id number], LAB15 ####Loss Prevention Associate: DOMENICA JARA ([id number])[address] Urea nitrogen [Mass/Vol] 10 mg/dL Normal 9-23 [facility] Comment on above: Performed By: #### L AB103, [id number], LAB15 ####Loss Prevention Associate: DOMENICA JARA ([id number])[facility] ([facility])[address] [place] [address] Basic metabolic 1998 panelon 01-30-2025 Anion gap [Moles/Vol] 13 mmol/L 3 - 13 mmol/L [facility] Calcium [Mass/Vol] 9.6 mg/dL 8.4 - 10. 2 mg/dL [facility] Chloride [Moles/Vol] 99 mmol/L 98 - 10 7 mmol/L [facility] CO2 [Moles/Vol] 23 mmol/L 22 - 29 mmol/L [facility] Creatinine [Mass/Vol] 2.56 mg/dL High 0.72 - 1.25 mg/dL [facility] GFR/1.73 sq M.predicted (S/P/Bld) [Vol rate/Area] 28.1 mL/min Low - PINF [facility] Glucose [Mass/Vol] 88 mg/dL 74 - 100 mg/dL [facility] Interpretation and review of laboratory results Abnormal [facility] Potassium [Moles/Vol] 3.7 mmol/L 3.5 - 5.1 mmol/L [facility] Sodium [Moles/Vol] 135 mmol/L Low 136 - 145 mmol/L [facility] Urea nitrogen [Mass/Vol] 10 mg/dL 9 - 23 mg/d L [facility] CBC (HEMOGRAM)on 01-30-2025 Erythrocyte distribution width (RBC) [Ratio] 18.9 % High 11.5-15.0 [facility] Comment on above: Performed By: #### L AB294 ####Loss Prevention Associate: DOMENICA JARA ([id number])[facility])[address] [place] [address] Hematocrit (Bld) [Volume fraction] 28.1 % Low 40.0-52.0 [facility] Comment on above: Performed By: #### L AB294 ####Loss Prevention Associate: DOMENICA JARA ([id number])[facility])[address] [place] [address] Hemoglobin (Bld) [Mass/Vol] 8.7 g/dL Low 13.0-18.0 [facility] Comment on above: Performed By: #### L AB294 ####Loss Prevention Associate: DOMENICA JARA ([id number])[facility] ([facility])[address] [place] [address] MCH (RBC) [Entitic mass] 27.6 pg Normal 26.0-34.0 [facility] Comment on above: Performed By: #### L AB294 ####Loss Prevention Associate: DOMENICA JARA ([id number])[facility])[address] [place] [address] MCHC 31.0 % Normal 30.5-36.0 [facility] Comment on above: Performed By: #### L AB294 ####Loss Prevention Associate: DOMENICA JARA ([id number])[facility])[address] [place] [address] MCV (RBC) [Entitic vol] 89.2 fL Normal 77.0-99.0 [facility] Comment on above: Performed By: #### L AB294 ####Loss Prevention Associate: DOMENICA JARA ([id number])[facility])[address] [place] [address] Platelet mean volume (Bld) [Entitic vol] 9.1 fL Normal 9.0-12.7 [facility] Comment on above: Performed By: #### L AB294 ####Loss Prevention Associate: DOMENICA JARA ([id number])[facility] ([facility])[address] [place] [address] Platelets (Bld) [#/Vol] 276 10*3/uL Normal 140-440 [facility] Comment on above: Performed By: #### L AB294 ####Loss Prevention Associate: DOMENICA JARA ([id number])[facility] ([facility])[address] [place] [address] RBC (Bld) [#/Vol] 3.15 10*6/uL Low 4.40-5.90 [facility] Comment on above: Performed By: #### L AB294 ####Loss Prevention Associate: DOMENICA JARA ([id number])[facility] ([facility])[address] [place] [address] WBC (Bld) [#/Vol] 8.8 10*3/uL Normal 3.6-10.7 [facility] Comment on above: Performed By: #### L AB294 ####Loss Prevention Associate: DOMENICA JARA ([id number])[facility] ([facility])[address] [place] [address] CBC panel Auto (Bld)on 01-30 Erythrocyte distribution width (RBC) [Ratio] 18.9 % High 11.5 - 15.0 % [facility] Hematocrit (Bld) [Volume fraction] 28.1 % Low 40.0 - 52.0 % [facility] Hemoglobin (Bld) [Mass/Vol] 8.7 g/dL Low 13.0 - 18.0 g/dL [facility] Interpretation and review of laboratory results Abnormal [facility] MCH (RBC) [Entitic mass] 27.6 pg 26. 0 - 34.0 pg [facility] MCHC (RBC) [Mass/Vol] 31 % 30.5 - 36.0 % [facility] MCV (RBC) [Entitic vol] 89.2 fL 77.0 - 99.0 fL [facility] Platelet mean volume (Bld) [Entitic vol] 9.1 fL 9.0 - 12.7 fL [facility] Platelets (Bld) [#/Vol] 276 10*3/uL 140 - 440 10*3/uL [facility] RBC (Bld) [#/Vol] 3.15 10*6/uL Low 4.40 - 5.9 0 10*6/uL [facility] WBC (Bld) [#/Vol] 8.8 10*3/uL 3.6 - 10.7 10*3/uL [facility] HEMOGLOBIN AND HEMATOCRIT, B LOODon 01-30-2025 Hematocrit (Bld) [Volume fraction] 31.5 % Low 40.0-52.0 [facility] Comment on above: Performed By: #### L AB753 ####Loss Prevention Associate: DOMENICA JARA ([id number])[facility] ([facility])[address] [place] [address] Hemoglobin (Bld) [Mass/Vol] 9.8 g/dL Low 13.0-18.0 [facility] Comment on above: Performed By: #### L AB753 ####Loss Prevention Associate: DOMENICA JARA ([id number])[facility] ([facility])[address] [place] [address] Hemoglobin (Bld) [Mass/Vol]O rdered By: Rikki Caballero on 01-30-2025 Hematocrit (Bld) [Volume fraction] 31.5 % Low 40.0 - 52.0 % [facility] Interpretation and review of laboratory results Abnormal [facility] Laboratory - Chemistry and C hemistry - challengeon 01-30-2025 Glucose [Mass/Vol] 106 mg/dL High 70 - 100 mg/dL [facility] Glucose [Mass/Vol] 107 mg/dL High 70 - 100 mg/dL [facility] Glucose [Mass/Vol] 77 mg/dL 70 - 100 mg/dL [facility] Magnesium [Mass/Vol] 1.9 mg/dL 1.6 - 2 .6 mg/dL [facility] Laboratory - Coagulationon 0 01-30-2025 PT Coag (Bld) [Time] 24.9 s High 9.0 - 12.0 s [facility] Laboratory - Hematology and Cell countsOrdered By: Rikki Caballero on 01-30-2025 Hemoglobin (Bld) [Mass/Vol] 9.8 g/dL Low 13.0 - 18.0 g/dL [facility] MAGNESIUMon 01-30-2025 Magnesium [Mass/Vol] 1.9 mg/dL Normal 1.6-2.6 [facility] Comment on above: Result Comment: ARPAN Kaplan COMMENTS:Higher values can be expected in females during menses. Performed By: #### L AB103, [id number], LAB15 ####Loss Prevention Associate: DOMENICA JARA ([id number])[facility])[address] [place] [address] Magnesium [Mass/Vol]on 01-30 Interpretation and review of laboratory results Normal [facility] No Panel Informationon 01-30 Interpretation and review of laboratory results Abnormal [facility] RADIOLOGY [facility] Radiology Study observation (narrative) [facility] alth Interpretation and review of laboratory results Abnormal [facility] Interpretation and review of laboratory results Normal [facility] Blood Expiration Date [id number] S [facility] Crossmatch interpretation COMP [facility] Dispense Status Released from [employer] [facility] Product Blood Type 9500 [facility] PRODUCT CODE [id number] [facility] Unit ABO O [facility] Unit Number [id number] [facility] alth Unit RH Negative [facility] Unit Volume 300 mL [facility] No Panel InformationOrdered By: Jun Borrero on 01-30-2025 [facility] Work Phone: Nursing Noteon 01-30-2025 Nursing Note Normal [facility] PHOSPHORUSon 01-30-2025 Phosphate [Mass/Vol] 3.7 mg/dL Normal 2.3-4.7 [facility] Comment on above: Performed By: #### L AB103, [id number], LAB15 ####Loss Prevention Associate: DOMENICA JARA ([id number])[facility] ([facility])[address] [place] [address] PROTHROMBIN TIMEon INR Coag (PPP) [Relative time] 2.5 {INR} High 0.9-1.1 [facility] Comment on above: Performed By: #### L AB320 ####Loss Prevention Associate: DOMENICA JARA ([id number])[facility] ([facility])[address] [place] [address] PT Coag (PPP) [Time] 24.9 s High 9.0-12.0 [facility] Comment on above: Performed By: #### L AB320 ####Loss Prevention Associate: DOMENICA JARA ([id number])[facility] ([facility])[address] [place] [address] PT Coag (Bld) [Time]on 01-30 INR Coag (PPP) [Relative time] 2.5 {INR} High 0.9 - 1.1 [facility] Interpretation and review of laboratory results Abnormal [facility] Phosphate [Moles/Vol]on Interpretation and review of laboratory results Normal [facility] Phosphate [Mass/Vol] 3.7 mg/dL 2.3 - 4 .7 mg/dL [facility] Progress Noteon 01-30-2025 Progress Note Normal [facility] Progress Note OCCUPATIONAL THERAPY [facility] Name/MRN: Jair Snyder ([id number]) Date: 01/30/2025 Attempted OT services however, Pt is currently OOR-at specials for IR line- Per RN. Will re attempt for pre cert as schedule permits. VICKY Bates Normal [facility] Progress Note Speech-Language Pathology Patient is off of the unit for tunnel catheter placement. Will reschedule dysphagia treatment session for 01/31/2025 and determine if patient is a candidate for diet upgrade. Christina Limon MS, CCC/SPANISH INTERPRETER Normal [facility] Progress Note Normal [facility] Progress [facility] Normal [facility] Progress [facility] Normal [facility] Progress Note Normal [facility] Progress Note Normal [facility] 30on 01-29-2025 30 Normal [facility] 36on 01-29-2025 36 Chart reviewed, patient appears to be sensitive to warfarin at this time and I wouldn't be able to guarantee INR remains less than 3, so opted to hold dose today. I canceled order. Normal [facility] Basic metabolic 1998 panelon 01-29-2025 Anion gap [Moles/Vol] 17 mmol/L High 3 - 13 mmol/L [facility] Calcium [Mass/Vol] 9.8 mg/dL 8.4 - 10. 2 mg/dL [facility] Chloride [Moles/Vol] 94 mmol/L Low 98 - 10 7 mmol/L [facility] CO2 [Moles/Vol] 23 mmol/L 22 - 29 mmol/L [facility] Creatinine [Mass/Vol] 4.17 mg/dL High 0.72 - 1.25 mg/dL [facility] GFR/1.73 sq M.predicted (S/P/Bld) [Vol rate/Area] 15.6 mL/min Low - PINF [facility] Glucose [Mass/Vol] 80 mg/dL 74 - 100 mg/dL [facility] Potassium [Moles/Vol] 3.7 mmol/L 3.5 - 5.1 mmol/L [facility] Sodium [Moles/Vol] 134 mmol/L Low 136 - 145 mmol/L [facility] Urea nitrogen [Mass/Vol] 21 mg/dL 9 - 23 mg/d L [facility] CBC panel Auto (Bld)on 01-29 Erythrocyte distribution width (RBC) [Ratio] 19 % High 11.5 - 15.0 % [facility] Hematocrit (Bld) [Volume fraction] 27.3 % Low 40.0 - 52.0 % [facility] Hemoglobin (Bld) [Mass/Vol] 8.6 g/dL Low 13.0 - 18.0 g/dL [facility] Interpretation and review of laboratory results Abnormal [facility] MCH (RBC) [Entitic mass] 28.1 pg 26. 0 - 34.0 pg [facility] MCHC (RBC) [Mass/Vol] 31.5 % 30.5 - 36.0 % [facility] MCV (RBC) [Entitic vol] 89.2 fL 77.0 - 99.0 fL [facility] Platelet mean volume (Bld) [Entitic vol] 9.4 fL 9.0 - 12.7 fL [facility] Platelets (Bld) [#/Vol] 271 10*3/uL 140 - 440 10*3/uL [facility] RBC (Bld) [#/Vol] 3.06 10*6/uL Low 4.40 - 5.9 0 10*6/uL [facility] WBC (Bld) [#/Vol] 9.4 10*3/uL 3.6 - 10.7 10*3/uL [facility] Laboratory - Chemistry and C hemistry - challengeon 01-29-2025 Glucose [Mass/Vol] 82 mg/dL 70 - 100 mg/dL [facility] Glucose [Mass/Vol] 87 mg/dL 70 - 100 mg/dL [facility] Glucose [Mass/Vol] 91 mg/dL 70 - 100 mg/dL [facility] Magnesium [Mass/Vol] 2 mg/dL 1.6 - 2 .6 mg/dL [facility] Laboratory - Coagulationon 0 01-29-2025 Coagulation factor VIII activity actual/normal Coag (PPP) [Relative time] 412 % High 56 - 191 % [facility] vWf Ag actual/normal IA (PPP) [Relative mass conc] 281 % High 52 - 214 % [facility] vWf multimers Ql (PPP) See Note [place] [facility] vWf ristocetin cofactor act actual/normal Platelet aggregation (PPP) [Relative time] 200 % 51 - 215 % [facility] PT Coag (Bld) [Time] 24 s High 9.0 - 12.0 s [facility] Magnesium [Mass/Vol]on 01-29 Interpretation and review of laboratory results Normal [facility] No Panel Informationon 01-29 Interpretation and review of laboratory results Normal [facility] Interpretation and review of laboratory results Normal [facility] Interpretation and review of laboratory results Abnormal [facility] Interpretation and review of laboratory results Normal [facility] Interpretation and review of laboratory results Abnormal [facility] Interpretation and review of laboratory results Abnormal [facility] Nursing Noteon 01-29-2025 Nursing Note I was able to get him into chair yesterday. Today he refuses but states maybe later. He is tired from dialysis Normal [facility] Nursing Note Patient bathed, refusing gown. He has some bloody drainage on pad and Dr Lira in at bedside and aware. Looks like it may be from wound but unsure. Normal [facility] PT Coag (Bld) [Time]on 01-29 INR Coag (PPP) [Relative time] 2.4 {INR} High 0.9 - 1.1 [facility] Phosphate [Moles/Vol]on Phosphate [Mass/Vol] 4.9 mg/dL High 2.3 - 4 .7 mg/dL [facility] aPTT Coag (Bld) [Time]on aPTT Coag (PPP) [Time] 51.4 s High 20.0 - 30.5 s [facility] Basic metabolic 1998 panelon 01-28-2025 Anion gap [Moles/Vol] 13 mmol/L 3 - 13 mmol/L [facility] Calcium [Mass/Vol] 10 mg/dL 8.4 - 10. 2 mg/dL [facility] Chloride [Moles/Vol] 98 mmol/L 98 - 10 7 mmol/L [facility] CO2 [Moles/Vol] 26 mmol/L 22 - 29 mmol/L [facility] Creatinine [Mass/Vol] 3.37 mg/dL High 0.72 - 1.25 mg/dL [facility] GFR/1.73 sq M.predicted (S/P/Bld) [Vol rate/Area] 20.2 mL/min Low - PINF [facility] Glucose [Mass/Vol] 82 mg/dL 74 - 100 mg/dL [facility] Interpretation and review of laboratory results Abnormal [facility] Potassium [Moles/Vol] 3.6 mmol/L 3.5 - 5.1 mmol/L [facility] Sodium [Moles/Vol] 137 mmol/L 136 - 145 mmol/L [facility] Urea nitrogen [Mass/Vol] 14 mg/dL 9 - 23 mg/d L [facility] CBC panel Auto (Bld)on 01-28 Erythrocyte distribution width (RBC) [Ratio] 19 % High 11.5 - 15.0 % [facility] Hematocrit (Bld) [Volume fraction] 26.3 % Low 40.0 - 52.0 % [facility] Hemoglobin (Bld) [Mass/Vol] 8.5 g/dL Low 13.0 - 18.0 g/dL [facility] Interpretation and review of laboratory results Abnormal [facility] MCH (RBC) [Entitic mass] 28.2 pg 26. 0 - 34.0 pg [facility] MCHC (RBC) [Mass/Vol] 32.3 % 30.5 - 36.0 % [facility] MCV (RBC) [Entitic vol] 87.4 fL 77.0 - 99.0 fL [facility] Platelet mean volume (Bld) [Entitic vol] 9.3 fL 9.0 - 12.7 fL [facility] Platelets (Bld) [#/Vol] 240 10*3/uL 140 - 440 10*3/uL [facility] RBC (Bld) [#/Vol] 3.01 10*6/uL Low 4.40 - 5.9 0 10*6/uL [facility] WBC (Bld) [#/Vol] 9.8 10*3/uL 3.6 - 10.7 10*3/uL [facility] Laboratory - Chemistry and C hemistry - challengeon 01-28-2025 Glucose [Mass/Vol] 127 mg/dL High 70 - 100 mg/dL [facility] Magnesium [Mass/Vol] 2 mg/dL 1.6 - 2 .6 mg/dL [facility] Laboratory - Coagulationon 0 01-28-2025 PT Coag (Bld) [Time] 21.9 s High 9.0 - 12.0 s [facility] Magnesium [Mass/Vol]on 01-28 Interpretation and review of laboratory results Normal [facility] No Panel Informationon 01-28 Interpretation and review of laboratory results Abnormal [facility] Interpretation and review of laboratory results Abnormal [facility] PT Coag (Bld) [Time]on 01-28 INR Coag (PPP) [Relative time] 2.2 {INR} High 0.9 - 1.1 [facility] Phosphate [Moles/Vol]on Interpretation and review of laboratory results Abnormal [facility] Phosphate [Mass/Vol] 4.9 mg/dL High 2.3 - 4 .7 mg/dL [facility] aPTT Coag (Bld) [Time]on aPTT Coag (PPP) [Time] 49 s High 20.0 - 30.5 s [facility] Interpretation and review of laboratory results Abnormal [facility] aPTT Coag (PPP) [Time] 46.3 s High 20.0 - 30.5 s [facility] Basic metabolic 1998 panelon 01-27-2025 Anion gap [Moles/Vol] 17 mmol/L High 3 - 13 mmol/L [facility] Calcium [Mass/Vol] 9.9 mg/dL 8.4 - 10. 2 mg/dL [facility] Chloride [Moles/Vol] 99 mmol/L 98 - 10 7 mmol/L [facility] CO2 [Moles/Vol] 23 mmol/L 22 - 29 mmol/L [facility] Creatinine [Mass/Vol] 2.27 mg/dL High 0.72 - 1.25 mg/dL [facility] GFR/1.73 sq M.predicted (S/P/Bld) [Vol rate/Area] 32.4 mL/min Low - PINF [facility] Glucose [Mass/Vol] 115 mg/dL High 74 - 100 mg/dL [facility] Interpretation and review of laboratory results Abnormal [facility] Potassium [Moles/Vol] 3.9 mmol/L 3.5 - 5.1 mmol/L [facility] Sodium [Moles/Vol] 139 mmol/L 136 - 145 mmol/L [facility] Urea nitrogen [Mass/Vol] 9 mg/dL 9 - 23 mg/d L [facility] CBC panel Auto (Bld)on 01-27 Erythrocyte distribution width (RBC) [Ratio] 19.1 % High 11.5 - 15.0 % [facility] Hematocrit (Bld) [Volume fraction] 28.3 % Low 40.0 - 52.0 % [facility] Hemoglobin (Bld) [Mass/Vol] 9 g/dL Low 13.0 - 18.0 g/dL [facility] Interpretation and review of laboratory results Abnormal [facility] MCH (RBC) [Entitic mass] 27.6 pg 26. 0 - 34.0 pg [facility] MCHC (RBC) [Mass/Vol] 31.8 % 30.5 - 36.0 % [facility] MCV (RBC) [Entitic vol] 86.8 fL 77.0 - 99.0 fL [facility] Platelet mean volume (Bld) [Entitic vol] 8.7 fL Low 9.0 - 12.7 fL [facility] Platelets (Bld) [#/Vol] 273 10*3/uL 140 - 440 10*3/uL [facility] RBC (Bld) [#/Vol] 3.26 10*6/uL Low 4.40 - 5.9 0 10*6/uL [facility] WBC (Bld) [#/Vol] 10 10*3/uL 3.6 - 10.7 10*3/uL [facility] Hemoglobin (Bld) [Mass/Vol]o n 01-27-2025 Hematocrit (Bld) [Volume fraction] 26.3 % Low 40.0 - 52.0 % [facility] Interpretation and review of laboratory results Abnormal [facility] Laboratory - Chemistry and C hemistry - challengeon 01-27-2025 Glucose [Mass/Vol] 102 mg/dL High 70 - 100 mg/dL [facility] Glucose [Mass/Vol] 127 mg/dL High 70 - 100 mg/dL [facility] Glucose [Mass/Vol] 87 mg/dL 70 - 100 mg/dL [facility] Magnesium [Mass/Vol] 1.9 mg/dL 1.6 - 2 .6 mg/dL [facility] Laboratory - Coagulationon 0 01-27-2025 PT Coag (Bld) [Time] 19.9 s High 9.0 - 12.0 s [facility] Laboratory - Hematology and Cell countson 01-27-2025 Hemoglobin (Bld) [Mass/Vol] 8.4 g/dL Low 13.0 - 18.0 g/dL [facility] Magnesium [Mass/Vol]on 01-27 [facility] No Panel Informationon 01-27 Interpretation and review of laboratory results Abnormal [facility] Interpretation and review of laboratory results Abnormal [facility] Interpretation and review of laboratory results Normal [facility] Interpretation and review of laboratory results Abnormal [facility] Interpretation and review of laboratory results Normal [facility] PT Coag (Bld) [Time]on 01-27 INR Coag (PPP) [Relative time] 1.9 {INR} High 0.9 - 1.1 [facility] Phosphate [Moles/Vol]on Phosphate [Mass/Vol] 3.4 mg/dL 2.3 - 4 .7 mg/dL [facility] aPTT Coag (Bld) [Time]on aPTT Coag (PPP) [Time] 47.9 s High 20.0 - 30.5 s [facility] Interpretation and review of laboratory results Abnormal [facility] aPTT Coag (PPP) [Time] 49.6 s High 20.0 - 30.5 s [facility] Interpretation and review of laboratory results Abnormal [facility] aPTT Coag (PPP) [Time] 45 s High 20.0 - 30.5 s [facility] Interpretation and review of laboratory results Abnormal [facility] aPTT Coag (PPP) [Time] 40.2 s High 20.0 - 30.5 s [facility] Basic metabolic 1998 panelon 01-26-2025 Anion gap [Moles/Vol] 16 mmol/L High 3 - 13 mmol/L [facility] Calcium [Mass/Vol] 9 mg/dL 8.4 - 10. 2 mg/dL [facility] Chloride [Moles/Vol] 100 mmol/L 98 - 10 7 mmol/L [facility] CO2 [Moles/Vol] 20 mmol/L Low 22 - 29 mmol/L [facility] Creatinine [Mass/Vol] 3.37 mg/dL High 0.72 - 1.25 mg/dL [facility] GFR/1.73 sq M.predicted (S/P/Bld) [Vol rate/Area] 20.2 mL/min Low - PINF [facility] Glucose [Mass/Vol] 75 mg/dL 74 - 100 mg/dL [facility] Interpretation and review of laboratory results Abnormal [facility] Potassium [Moles/Vol] 5.1 mmol/L 3.5 - 5.1 mmol/L [facility] Sodium [Moles/Vol] 136 mmol/L 136 - 145 mmol/L [facility] Urea nitrogen [Mass/Vol] 19 mg/dL 9 - 23 mg/d L [facility] CBC panel Auto (Bld)Ordered By: Brandy Ross on 01-26-2025 Erythrocyte distribution width (RBC) [Ratio] 19.3 % High 11.5 - 15.0 % [facility] Hematocrit (Bld) [Volume fraction] 21 % Low 40.0 - 52.0 % [facility] Hemoglobin (Bld) [Mass/Vol] 6.7 g/dL Critically low 13.0 - 18.0 g/dL [facility] Interpretation and review of laboratory results Abnormal [facility] MCH (RBC) [Entitic mass] 27.8 pg 26. 0 - 34.0 pg [facility] MCHC (RBC) [Mass/Vol] 31.9 % 30.5 - 36.0 % [facility] MCV (RBC) [Entitic vol] 87.1 fL 77.0 - 99.0 fL [facility] Platelet mean volume (Bld) [Entitic vol] 10 fL 9.0 - 12.7 fL [facility] Platelets (Bld) [#/Vol] 265 10*3/uL 140 - 440 10*3/uL [facility] RBC (Bld) [#/Vol] 2.41 10*6/uL Low 4.40 - 5.9 0 10*6/uL [facility] WBC (Bld) [#/Vol] 8.7 10*3/uL 3.6 - 10.7 10*3/uL [facility] HBV surface Ab IA Qnon 01-26 [facility] HBV surface Ag IA Qlon 01-26 Interpretation and review of laboratory results Normal [facility] Hemoglobin (Bld) [Mass/Vol]o n 01-26-2025 Hematocrit (Bld) [Volume fraction] 27.9 % Low 40.0 - 52.0 % [facility] Interpretation and review of laboratory results Abnormal [facility] Hematocrit (Bld) [Volume fraction] 28.4 % Low 40.0 - 52.0 % [facility] Interpretation and review of laboratory results Abnormal [facility] Laboratory - Chemistry and C hemistry - challengeon 01-26-2025 Magnesium [Mass/Vol] 2 mg/dL 1.6 - 2 .6 mg/dL [facility] Laboratory - Coagulationon 0 01-26-2025 PT Coag (Bld) [Time] 18.3 s High 9.0 - 12.0 s [facility] Laboratory - Hematology and Cell countson 01-26-2025 Hemoglobin (Bld) [Mass/Vol] 9 g/dL Low 13.0 - 18.0 g/dL [facility] Hemoglobin (Bld) [Mass/Vol] 8.9 g/dL Low 13.0 - 18.0 g/dL [facility] Laboratory - Microbiology an d Antimicrobial susceptibilityon 01-26-2025 HBV surface Ab IA Qn mIU/mL [facility] HBV surface Ag IA Ql Not detected Not Detected [facility] Magnesium [Mass/Vol]on 01-26 Interpretation and review of laboratory results Normal [facility] No Panel Informationon 01-26 [facility] Blood Expiration Date [id number] S [facility] Crossmatch interpretation COMP [facility] Dispense Status Transfused [facility] Product Blood Type 9500 [facility] PRODUCT CODE [id number] [facility] Unit ABO O [facility] Unit Number [id number] [facility] RH Negative [facility] Unit Volume 300 mL [facility] Interpretation and review of laboratory results Abnormal [facility] PT Coag (Bld) [Time]on 01-26 INR Coag (PPP) [Relative time] 1.8 {INR} High 0.9 - 1.1 [facility] Phosphate [Moles/Vol]on Interpretation and review of laboratory results Abnormal [facility] Phosphate [Mass/Vol] 5.3 mg/dL High 2.3 - 4 .7 mg/dL [facility] aPTT Coag (Bld) [Time]on aPTT Coag (PPP) [Time] 41.6 s High 20.0 - 30.5 s [facility] Interpretation and review of laboratory results Abnormal [facility] aPTT Coag (PPP) [Time] 47 s High 20.0 - 30.5 s [facility] aPTT Coag (Bld) [Time]Ordere d By: Alan Santos on 01-26-2025 aPTT Coag (PPP) [Time] s Critically high 20.0 - 3 0.5 s [facility] Interpretation and review of laboratory results Abnormal [facility] Basic metabolic 1998 panelon 01-25-2025 Anion gap [Moles/Vol] 16 mmol/L High 3 - 13 mmol/L [facility] Calcium [Mass/Vol] 10.1 mg/dL 8.4 - 10. 2 mg/dL [facility] Chloride [Moles/Vol] 98 mmol/L 98 - 10 7 mmol/L [facility] CO2 [Moles/Vol] 24 mmol/L 22 - 29 mmol/L [facility] Creatinine [Mass/Vol] 2.54 mg/dL High 0.72 - 1.25 mg/dL [facility] GFR/1.73 sq M.predicted (S/P/Bld) [Vol rate/Area] 28.3 mL/min Low - PINF [facility] Glucose [Mass/Vol] 74 mg/dL 74 - 100 mg/dL [facility] Interpretation and review of laboratory results Abnormal [facility] Potassium [Moles/Vol] 3.9 mmol/L 3.5 - 5.1 mmol/L [facility] Sodium [Moles/Vol] 138 mmol/L 136 - 145 mmol/L [facility] Urea nitrogen [Mass/Vol] 15 mg/dL 9 - 23 mg/d L [facility] Blood type and Crossmatch pa freida (Bld)on 01-25-2025 ABO group Nom (Bld) O [facility] Blood group antibody screen GEL Ql Negative [facility] D Ag Ql (RBC) Negative [facility] CBC panel Auto (Bld)on 01-25 Erythrocyte distribution width (RBC) [Ratio] 19.2 % High 11.5 - 15.0 % [facility] Hematocrit (Bld) [Volume fraction] 22.5 % Low 40.0 - 52.0 % [facility] Hemoglobin (Bld) [Mass/Vol] 7 g/dL Low 13.0 - 18.0 g/dL [facility] Interpretation and review of laboratory results Abnormal [facility] MCH (RBC) [Entitic mass] 27.6 pg 26. 0 - 34.0 pg [facility] MCHC (RBC) [Mass/Vol] 31.1 % 30.5 - 36.0 % [facility] MCV (RBC) [Entitic vol] 88.6 fL 77.0 - 99.0 fL [facility] Platelet mean volume (Bld) [Entitic vol] 8.8 fL Low 9.0 - 12.7 fL [facility] Platelets (Bld) [#/Vol] 285 10*3/uL 140 - 440 10*3/uL [facility] RBC (Bld) [#/Vol] 2.54 10*6/uL Low 4.40 - 5.9 0 10*6/uL [facility] WBC (Bld) [#/Vol] 10.2 10*3/uL 3.6 - 10.7 10*3/uL [facility] Hemoglobin (Bld) [Mass/Vol]o n 01-25-2025 Hematocrit (Bld) [Volume fraction] 23.8 % Low 40.0 - 52.0 % [facility] Interpretation and review of laboratory results Abnormal [facility] Hematocrit (Bld) [Volume fraction] 24.4 % Low 40.0 - 52.0 % [facility] Interpretation and review of laboratory results Abnormal [facility] Hematocrit (Bld) [Volume fraction] 24.6 % Low 40.0 - 52.0 % [facility] Interpretation and review of laboratory results Abnormal [facility] Hematocrit (Bld) [Volume fraction] 20.4 % Low 40.0 - 52.0 % [facility] Interpretation and review of laboratory results Abnormal [facility] Laboratory - Chemistry and C hemistry - challengeon 01-25-2025 Magnesium [Mass/Vol] 2.1 mg/dL 1.6 - 2 .6 mg/dL [facility] Laboratory - Coagulationon 0 01-25-2025 PT Coag (Bld) [Time] 17.4 s High 9.0 - 12.0 s [facility] PT Coag (Bld) [Time] 15.9 s High 9.0 - 12.0 s [facility] Laboratory - Hematology and Cell countson 01-25-2025 Hemoglobin (Bld) [Mass/Vol] 7.6 g/dL Low 13.0 - 18.0 g/dL [facility] Hemoglobin (Bld) [Mass/Vol] 7.7 g/dL Low 13.0 - 18.0 g/dL [facility] Hemoglobin (Bld) [Mass/Vol] 8 g/dL Low 13.0 - 18.0 g/dL [facility] Hemoglobin (Bld) [Mass/Vol] 6.3 g/dL Critically low 13.0 - 18.0 g/dL [facility] Laboratory - Microbiology an d Antimicrobial susceptibilityon 01-25-2025 A. baumannii DNA EMMANUEL+probe Ql (Unsp spec) Not detected Not Detected [facility] Laboratory - Microbiology an d Antimicrobial susceptibilityOrdered By: Petra Harris on 01-25-2025 C. auris ITS2 gene EMMANUEL+probe Ql (Unsp spec) Not detected Not Detected [facility] Magnesium [Mass/Vol]on 01-25 [facility] No Panel Informationon 01-25 Interpretation and review of laboratory results Normal [facility] Blood Expiration Date [id number] S [facility] Crossmatch interpretation COMP [facility] Dispense Status Transfused [facility] Product Blood Type 9500 [facility] PRODUCT CODE [id number] [facility] Unit ABO O [facility] Unit Number [id number] [facility] RH Negative [facility] Unit Volume 300 mL [facility] Interpretation and review of laboratory results Normal [facility] No Panel InformationOrdered By: Petra Harris on 01-25-2025 Interpretation and review of laboratory results Normal [facility] PT Coag (Bld) [Time]on 01-25 INR Coag (PPP) [Relative time] 1.7 {INR} High 0.9 - 1.1 [facility] Interpretation and review of laboratory results Abnormal [facility] INR Coag (PPP) [Relative time] 1.5 {INR} High 0.9 - 1.1 [facility] Interpretation and review of laboratory results Abnormal [facility] Phosphate [Moles/Vol]on Phosphate [Mass/Vol] 3.9 mg/dL 2.3 - 4 .7 mg/dL [facility] RF videography Hypopharynx a nd Esophagus Views for swallowing function W speech and W barium contrast Juan Carlos 01-25-2025 [facility] RADIOLOGY SYSTEM [facility] RADIOLOGY [facility] Radiology Study observation (narrative) [facility] RF videography Hypopharynx a nd Esophagus Views for swallowing function W speech and W barium contrast POOrdered By: Sulaiman Harp on 01-25-2025 [facility] Work Phone: aPTT Coag (Bld) [Time]on aPTT Coag (PPP) [Time] s Critically high 20.0 - 3 0.5 s [facility] Interpretation and review of laboratory results Abnormal [facility] aPTT Coag (PPP) [Time] 83.1 s High 20.0 - 30.5 s [facility] Interpretation and review of laboratory results Abnormal [facility] aPTT Coag (PPP) [Time] 47.3 s High 20.0 - 30.5 s [facility] Interpretation and review of laboratory results Abnormal [facility] Basic metabolic 1998 panelon 01-24-2025 Anion gap [Moles/Vol] 12 mmol/L 3 - 13 mmol/L [facility] Calcium [Mass/Vol] 9.3 mg/dL 8.4 - 10. 2 mg/dL [facility] Chloride [Moles/Vol] 100 mmol/L 98 - 10 7 mmol/L [facility] CO2 [Moles/Vol] 26 mmol/L 22 - 29 mmol/L [facility] Creatinine [Mass/Vol] 1.47 mg/dL High 0.72 - 1.25 mg/dL [facility] GFR/1.73 sq M.predicted (S/P/Bld) [Vol rate/Area] 54.6 mL/min Low - PINF [facility] Glucose [Mass/Vol] 77 mg/dL 74 - 100 mg/dL [facility] Interpretation and review of laboratory results Abnormal [facility] Potassium [Moles/Vol] 3.5 mmol/L 3.5 - 5.1 mmol/L [facility] Sodium [Moles/Vol] 138 mmol/L 136 - 145 mmol/L [facility] Urea nitrogen [Mass/Vol] 9 mg/dL 9 - 23 mg/d L [facility] Anion gap [Moles/Vol] 20 mmol/L High 3 - 13 mmol/L [facility] Calcium [Mass/Vol] 10.2 mg/dL 8.4 - 10. 2 mg/dL [facility] Chloride [Moles/Vol] 98 mmol/L 98 - 10 7 mmol/L [facility] CO2 [Moles/Vol] 21 mmol/L Low 22 - 29 mmol/L [facility] Creatinine [Mass/Vol] 3.62 mg/dL High 0.72 - 1.25 mg/dL [facility] GFR/1.73 sq M.predicted (S/P/Bld) [Vol rate/Area] 18.5 mL/min Low - PINF [facility] Glucose [Mass/Vol] 74 mg/dL 74 - 100 mg/dL [facility] Potassium [Moles/Vol] 4 mmol/L 3.5 - 5.1 mmol/L [facility] Sodium [Moles/Vol] 139 mmol/L 136 - 145 mmol/L [facility] Urea nitrogen [Mass/Vol] 27 mg/dL High 9 - 23 mg/d L [facility] CBC panel Auto (Bld)Ordered By: Liseth Granado on 01-24-2025 Erythrocyte distribution width (RBC) [Ratio] 19.4 % High 11.5 - 15.0 % [facility] Hematocrit (Bld) [Volume fraction] 27 % Low 40.0 - 52.0 % [facility] Hemoglobin (Bld) [Mass/Vol] 8 g/dL Low 13.0 - 18.0 g/dL [facility] Interpretation and review of laboratory results Abnormal [facility] MCH (RBC) [Entitic mass] 27.9 pg 26. 0 - 34.0 pg [facility] MCHC (RBC) [Mass/Vol] 29.6 % Low 30.5 - 36.0 % [facility] MCV (RBC) [Entitic vol] 94.1 fL 77.0 - 99.0 fL [facility] Platelet mean volume (Bld) [Entitic vol] 9.2 fL 9.0 - 12.7 fL [facility] Platelets (Bld) [#/Vol] 355 10*3/uL 140 - 440 10*3/uL [facility] RBC (Bld) [#/Vol] 2.87 10*6/uL Low 4.40 - 5.9 0 10*6/uL [facility] WBC (Bld) [#/Vol] 11.5 10*3/uL High 3.6 - 10.7 10*3/uL [facility] Hemoglobin (Bld) [Mass/Vol]o n 01-24-2025 Hematocrit (Bld) [Volume fraction] 23 % Low 40.0 - 52.0 % [facility] Interpretation and review of laboratory results Abnormal [facility] Laboratory - Chemistry and C hemistry - challengeon 01-24-2025 Lactate [Moles/Vol] 0.9 mmol/L 0.5 - 2. 2 mmol/L [facility] Laboratory - Chemistry and C hemistry - challengeOrdered By: Farhat Simons on 01-24-2025 Beta hydroxybutyrate [Mass/Vol] 10.5 mg/dL High NINF - 2.8 mg/dL [facility] Laboratory - Chemistry and C hemistry - challengeOrdered By: Anu Graham on 01-24-2025 Magnesium [Mass/Vol] 2.3 mg/dL 1.6 - 2 .6 mg/dL [facility] Laboratory - Coagulationon 0 01-24-2025 PT Coag (Bld) [Time] 15.1 s High 9.0 - 12.0 s [facility] PT Coag (Bld) [Time] 15.6 s High 9.0 - 12.0 s [facility] Laboratory - Hematology and Cell countson 01-24-2025 Hemoglobin (Bld) [Mass/Vol] 7.3 g/dL Low 13.0 - 18.0 g/dL [facility] Magnesium [Mass/Vol]Ordered By: Anu Graham on 01-24-2025 Interpretation and review of laboratory results Normal [facility] No Panel Informationon 01-24 Interpretation and review of laboratory results Abnormal [facility] Interpretation and review of laboratory results Normal [facility] Interpretation and review of laboratory results Abnormal [facility] Blood Expiration Date S [facility] Crossmatch interpretation COMP [facility] Dispense Status Released from [employer] [facility] Product Blood Type 9500 [facility] PRODUCT CODE [id number] [facility] Unit ABO O [facility] Unit Number [id number] [facility] alth Unit RH Negative [facility] Unit Volume 300 mL [facility] No Panel InformationOrdered By: Farhat Simons on 01-24-2025 Interpretation and review of laboratory results Abnormal [facility] No Panel InformationOrdered By: Anu Graham on 01-24-2025 [facility] PT Coag (Bld) [Time]on 01-24 INR Coag (PPP) [Relative time] 1.5 {INR} High 0.9 - 1.1 [facility] INR Coag (PPP) [Relative time] 1.5 {INR} High 0.9 - 1.1 [facility] Interpretation and review of laboratory results Abnormal [facility] Phosphate [Moles/Vol]on 12-28 Phosphate [Mass/Vol] 5.1 mg/dL High 2.3 - 4 .7 mg/dL [facility] XR Chest Single viewon 01-24 [facility] Radiology Study observation (narrative) [facility] aPTT Coag (Bld) [Time]on aPTT Coag (PPP) [Time] 33.7 s High 20.0 - 30.5 s [facility] aPTT Coag (Bld) [Time]Ordere d By: Callie Steele on 01-24-2025 aPTT Coag (PPP) [Time] 114.7 s High 20.0 - 30.5 s [facility] Interpretation and review of laboratory results Abnormal [facility] Basic metabolic 1998 panelon 01-23-2025 Anion gap [Moles/Vol] 13 mmol/L 3 - 13 mmol/L [facility] Calcium [Mass/Vol] 9.4 mg/dL 8.4 - 10. 2 mg/dL [facility] Chloride [Moles/Vol] 102 mmol/L 98 - 10 7 mmol/L [facility] CO2 [Moles/Vol] 25 mmol/L 22 - 29 mmol/L [facility] Creatinine [Mass/Vol] 2.34 mg/dL High 0.72 - 1.25 mg/dL [facility] GFR/1.73 sq M.predicted (S/P/Bld) [Vol rate/Area] 31.3 mL/min Low - PINF [facility] Glucose [Mass/Vol] 80 mg/dL 74 - 100 mg/dL [facility] Interpretation and review of laboratory results Abnormal [facility] Potassium [Moles/Vol] 3.4 mmol/L Low 3.5 - 5.1 mmol/L [facility] Sodium [Moles/Vol] 140 mmol/L 136 - 145 mmol/L [facility] Urea nitrogen [Mass/Vol] 22 mg/dL 9 - 23 mg/d L [facility] CBC W Auto Differential pane l (Bld)on 01-23-2025 Basophils (Bld) [#/Vol] 0.1 10*3/uL 0.0 - 0.2 10*3/uL [facility] Basophils/100 WBC (Bld) 1 % 0.0 - 2.0 % [facility] Eosinophils (Bld) [#/Vol] 0.7 10*3/uL High 0.0 - 0.5 10*3/uL [facility] Eosinophils/100 WBC (Bld) 6.8 % High 0.0 - 6.0 % [facility] Erythrocyte distribution width (RBC) [Ratio] 18.8 % High 11.5 - 15.0 % [facility] Hematocrit (Bld) [Volume fraction] 25.3 % Low 40.0 - 52.0 % [facility] Hemoglobin (Bld) [Mass/Vol] 7.9 g/dL Low 13.0 - 18.0 g/dL [facility] Immature granulocytes (Bld) [#/Vol] 0.1 10*3/uL High NINF - 0.1 10*3/uL [facility] Immature granulocytes/100 WBC (Bld) 1.1 % 0.0 - 2.0 % [facility] Interpretation and review of laboratory results Abnormal [facility] Lymphocytes (Bld) [#/Vol] 1.5 10*3/uL 1.0 - 4.3 10*3/uL [facility] Lymphocytes/100 WBC (Bld) 13.7 % Low 15.0 - 45.0 % [facility] MCH (RBC) [Entitic mass] 27.9 pg 26. 0 - 34.0 pg [facility] MCHC (RBC) [Mass/Vol] 31.2 % 30.5 - 36.0 % [facility] MCV (RBC) [Entitic vol] 89.4 fL 77.0 - 99.0 fL [facility] Monocytes (Bld) [#/Vol] 1.5 10*3/uL High 0.0 - 0.9 10*3/uL [facility] Monocytes/100 WBC (Bld) 13.7 % High 5.0 - 13.0 % [facility] Neutrophils (Bld) [#/Vol] 7 10*3/uL 1.8 - 7.5 10*3/uL [facility] Neutrophils/100 WBC (Bld) 63.7 % 38.0 - 82.0 % [facility] Nucleated RBC/100 WBC (Bld) [Ratio] 0 % [facility] Platelet mean volume (Bld) [Entitic vol] 9.4 fL 9.0 - 12.7 fL [facility] Platelets (Bld) [#/Vol] 346 10*3/uL 140 - 440 10*3/uL [facility] RBC (Bld) [#/Vol] 2.83 10*6/uL Low 4.40 - 5.9 0 10*6/uL [facility] WBC (Bld) [#/Vol] 10.9 10*3/uL High 3.6 - 10.7 10*3/uL [facility] Basophils (Bld) [#/Vol] 0.1 10*3/uL 0.0 - 0.2 10*3/uL [facility] Basophils/100 WBC (Bld) 1.1 % 0.0 - 2.0 % [facility] Eosinophils (Bld) [#/Vol] 0.9 10*3/uL High 0.0 - 0.5 10*3/uL [facility] Eosinophils/100 WBC (Bld) 8 % High 0.0 - 6.0 % [facility] Erythrocyte distribution width (RBC) [Ratio] 18.5 % High 11.5 - 15.0 % [facility] Hematocrit (Bld) [Volume fraction] 23.4 % Low 40.0 - 52.0 % [facility] Hemoglobin (Bld) [Mass/Vol] 7.3 g/dL Low 13.0 - 18.0 g/dL [facility] Immature granulocytes (Bld) [#/Vol] 0.1 10*3/uL High NINF - 0.1 10*3/uL [facility] Immature granulocytes/100 WBC (Bld) 1.1 % 0.0 - 2.0 % [facility] Interpretation and review of laboratory results Abnormal [facility] Lymphocytes (Bld) [#/Vol] 1.4 10*3/uL 1.0 - 4.3 10*3/uL [facility] Lymphocytes/100 WBC (Bld) 12.2 % Low 15.0 - 45.0 % [facility] MCH (RBC) [Entitic mass] 27.7 pg 26. 0 - 34.0 pg [facility] MCHC (RBC) [Mass/Vol] 31.2 % 30.5 - 36.0 % [facility] MCV (RBC) [Entitic vol] 88.6 fL 77.0 - 99.0 fL [facility] Monocytes (Bld) [#/Vol] 1.4 10*3/uL High 0.0 - 0.9 10*3/uL [facility] Monocytes/100 WBC (Bld) 12.9 % 5.0 - 13.0 % [facility] Neutrophils (Bld) [#/Vol] 7.2 10*3/uL 1.8 - 7.5 10*3/uL [facility] Neutrophils/100 WBC (Bld) 64.7 % 38.0 - 82.0 % [facility] Nucleated RBC/100 WBC (Bld) [Ratio] 0 % [facility] Platelet mean volume (Bld) [Entitic vol] 9.1 fL 9.0 - 12.7 fL [facility] Platelets (Bld) [#/Vol] 345 10*3/uL 140 - 440 10*3/uL [facility] RBC (Bld) [#/Vol] 2.64 10*6/uL Low 4.40 - 5.9 0 10*6/uL [facility] WBC (Bld) [#/Vol] 11.1 10*3/uL High 3.6 - 10.7 10*3/uL [facility] Hemoglobin (Bld) [Mass/Vol]o n 01-23-2025 Hematocrit (Bld) [Volume fraction] 25.1 % Low 40.0 - 52.0 % [facility] Interpretation and review of laboratory results Abnormal [facility] Laboratory - Chemistry and C hemistry - challengeon 01-23-2025 Glucose [Mass/Vol] 113 mg/dL High 70 - 100 mg/dL [facility] Glucose [Mass/Vol] 92 mg/dL 70 - 100 mg/dL [facility] Magnesium [Mass/Vol] 2.1 mg/dL 1.6 - 2 .6 mg/dL [facility] Laboratory - Coagulationon 0 01-23-2025 aPTT Coag (PPP) [Time] 30.6 s High 20.0 - 30.5 s [facility] INR Coag (PPP) [Relative time] 1.6 {INR} High 0.9 - 1.1 [facility] PT Coag (Bld) [Time] 16.1 s High 9.0 - 12.0 s [facility] PT Coag (Bld) [Time] 20 s High 9.0 - 12.0 s [facility] Laboratory - Hematology and Cell countson 01-23-2025 Hemoglobin (Bld) [Mass/Vol] 7.9 g/dL Low 13.0 - 18.0 g/dL [facility] Magnesium [Mass/Vol]on 01-23 Interpretation and review of laboratory results Normal [facility] No Panel Informationon 01-23 Interpretation and review of laboratory results Abnormal [facility] Interpretation and review of laboratory results Abnormal [facility] Interpretation and review of laboratory results Normal [facility] PT Coag (Bld) [Time]on 01-23 INR Coag (PPP) [Relative time] 2 {INR} High 0.9 - 1.1 [facility] Interpretation and review of laboratory results Abnormal [facility] Phosphate [Moles/Vol]Ordered By: Jenni Romano on 01-23-2025 Interpretation and review of laboratory results Normal [facility] Phosphate [Mass/Vol] 4.5 mg/dL 2.3 - 4 .7 mg/dL [facility] Basic metabolic 1998 panelOr dered By: Nathaly Dobson on 01-22-2025 Anion gap [Moles/Vol] 13 mmol/L 3 - 13 mmol/L [facility] Calcium [Mass/Vol] 9.8 mg/dL 8.4 - 10. 2 mg/dL [facility] Chloride [Moles/Vol] 94 mmol/L Low 98 - 10 7 mmol/L [facility] CO2 [Moles/Vol] 25 mmol/L 22 - 29 mmol/L [facility] Creatinine [Mass/Vol] 4.18 mg/dL High 0.72 - 1.25 mg/dL [facility] GFR/1.73 sq M.predicted (S/P/Bld) [Vol rate/Area] 15.6 mL/min Low - PINF [facility] Glucose [Mass/Vol] 70 mg/dL Low 74 - 100 mg/dL [facility] Interpretation and review of laboratory results Abnormal [facility] Potassium [Moles/Vol] 4.4 mmol/L 3.5 - 5.1 mmol/L [facility] Sodium [Moles/Vol] 132 mmol/L Low 136 - 145 mmol/L [facility] Urea nitrogen [Mass/Vol] 53 mg/dL High 9 - 23 mg/d L [facility] CBC W Auto Differential pane l (Bld)Ordered By: Tiffanie Chand on 01-22-2025 Basophils (Bld) [#/Vol] 0.1 10*3/uL 0.0 - 0.2 10*3/uL [facility] Basophils/100 WBC (Bld) 0.8 % 0.0 - 2.0 % [facility] Eosinophils (Bld) [#/Vol] 0.7 10*3/uL High 0.0 - 0.5 10*3/uL [facility] Eosinophils/100 WBC (Bld) 6.1 % High 0.0 - 6.0 % [facility] Erythrocyte distribution width (RBC) [Ratio] 18.4 % High 11.5 - 15.0 % [facility] Hematocrit (Bld) [Volume fraction] 23.9 % Low 40.0 - 52.0 % [facility] Hemoglobin (Bld) [Mass/Vol] 7.4 g/dL Low 13.0 - 18.0 g/dL [facility] Immature granulocytes (Bld) [#/Vol] 0.1 10*3/uL High NINF - 0.1 10*3/uL [facility] Immature granulocytes/100 WBC (Bld) 1.1 % 0.0 - 2.0 % [facility] Interpretation and review of laboratory results Abnormal [facility] Lymphocytes (Bld) [#/Vol] 1 10*3/uL 1.0 - 4.3 10*3/uL [facility] Lymphocytes/100 WBC (Bld) 9.7 % Low 15.0 - 45.0 % [facility] MCH (RBC) [Entitic mass] 27.5 pg 26. 0 - 34.0 pg [facility] MCHC (RBC) [Mass/Vol] 31 % 30.5 - 36.0 % [facility] MCV (RBC) [Entitic vol] 88.8 fL 77.0 - 99.0 fL [facility] Monocytes (Bld) [#/Vol] 1.5 10*3/uL High 0.0 - 0.9 10*3/uL [facility] Monocytes/100 WBC (Bld) 14.5 % High 5.0 - 13.0 % [facility] Neutrophils (Bld) [#/Vol] 7.2 10*3/uL 1.8 - 7.5 10*3/uL [facility] Neutrophils/100 WBC (Bld) 67.8 % 38.0 - 82.0 % [facility] Nucleated RBC/100 WBC (Bld) [Ratio] 0 % [facility] Platelet mean volume (Bld) [Entitic vol] 8.2 fL Low 9.0 - 12.7 fL [facility] Platelets (Bld) [#/Vol] 292 10*3/uL 140 - 440 10*3/uL [facility] RBC (Bld) [#/Vol] 2.69 10*6/uL Low 4.40 - 5.9 0 10*6/uL [facility] WBC (Bld) [#/Vol] 10.6 10*3/uL 3.6 - 10.7 10*3/uL [facility] CBC W Auto Differential pane l (Bld)on 01-22-2025 Basophils (Bld) [#/Vol] 0.1 10*3/uL 0.0 - 0.2 10*3/uL [facility] Basophils/100 WBC (Bld) 1.1 % 0.0 - 2.0 % [facility] Eosinophils (Bld) [#/Vol] 0.8 10*3/uL High 0.0 - 0.5 10*3/uL [facility] Eosinophils/100 WBC (Bld) 7.9 % High 0.0 - 6.0 % [facility] Erythrocyte distribution width (RBC) [Ratio] 18.6 % High 11.5 - 15.0 % [facility] Hematocrit (Bld) [Volume fraction] 25.1 % Low 40.0 - 52.0 % [facility] Hemoglobin (Bld) [Mass/Vol] 8 g/dL Low 13.0 - 18.0 g/dL [facility] [employer] Immature granulocytes (Bld) [#/Vol] 0.1 10*3/uL High NINF - 0.1 10*3/uL [facility] Immature granulocytes/100 WBC (Bld) 0.8 % 0.0 - 2.0 % [facility] Interpretation and review of laboratory results Abnormal [facility] Lymphocytes (Bld) [#/Vol] 1.5 10*3/uL 1.0 - 4.3 10*3/uL [facility] Lymphocytes/100 WBC (Bld) 14.1 % Low 15.0 - 45.0 % [facility] MCH (RBC) [Entitic mass] 27.7 pg 26. 0 - 34.0 pg [facility] MCHC (RBC) [Mass/Vol] 31.9 % 30.5 - 36.0 % [facility] MCV (RBC) [Entitic vol] 86.9 fL 77.0 - 99.0 fL [facility] Monocytes (Bld) [#/Vol] 1.5 10*3/uL High 0.0 - 0.9 10*3/uL [facility] Monocytes/100 WBC (Bld) 14 % High 5.0 - 13.0 % [facility] Neutrophils (Bld) [#/Vol] 6.6 10*3/uL 1.8 - 7.5 10*3/uL [facility] Neutrophils/100 WBC (Bld) 62.1 % 38.0 - 82.0 % [facility] Nucleated RBC/100 WBC (Bld) [Ratio] 0 % [facility] [employer] Platelet mean volume (Bld) [Entitic vol] 8.8 fL Low 9.0 - 12.7 fL [facility] Platelets (Bld) [#/Vol] 330 10*3/uL 140 - 440 10*3/uL [facility] RBC (Bld) [#/Vol] 2.89 10*6/uL Low 4.40 - 5.9 0 10*6/uL [facility] WBC (Bld) [#/Vol] 10.6 10*3/uL 3.6 - 10.7 10*3/uL [facility] Coagulation index TEG Qn (Bl d)Ordered By: Santhosh Acevedo on 01-22-2025 APTEM A10 72 mm High 50 - 70 mm [facility] APTEM A20 75 mm High 50 - 70 mm [facility] Clot angle TEG (Bld) [Angle] 82 High [facility] Clot formation.extrinsic coagulation system activated Rotational TEG (Bld) [Time] 200 s High 43 - 82 s [facility] Clot formation.extrinsic coagulation system activated Rotational TEG (Bld) [Time] 42 s Low 48 - 127 s [facility] Clot formation.extrinsic coagulation system activated Rotational TEG (Bld) [Time] 82 High [facility] Clot formation.extrinsic coagulation system activated Rotational TEG (Bld) [Time] 73 mm High 50 - 70 mm [facility] Clot formation.extrinsic coagulation system activated Rotational TEG (Bld) [Time] 76 mm High 52 - 70 mm [facility] Clot formation.extrinsic coagulation system activated.fibrinolysis suppressed Rotational TEG (Bld) [Time] 44 s Low 48 - 127 s [facility] Clot formation.extrinsic coagulation system activated.fibrinolysis suppressed Rotational TEG (Bld) [Time] 33 mm [facility] Clot formation.extrinsic coagulation system activated.fibrinolysis suppressed Rotational TEG (Bld) [Time] 35 mm [facility] Clot formation.extrinsic coagulation system activated.fibrinolysis suppressed Rotational TEG (Bld) [Time] 36 mm High 7 - 24 mm [facility] Clotting time.extrinsic coagulation system activated.fibrinolysis suppressed Rotational TEG (Bld) 232 s High 43 - 82 s [facility] Interpretation and review of laboratory results Abnormal [facility] Maximum clot firmness.extrinsic coagulation system activated.fibrinolysis suppressed Rotational TEG (Bld) [Length] 75 mm High 52 - 70 mm [facility] Hemoglobin (Bld) [Mass/Vol]o n 01-22-2025 Hematocrit (Bld) [Volume fraction] 24.5 % Low 40.0 - 52.0 % [facility] Interpretation and review of laboratory results Abnormal [facility] Hepatic function 2000 panelo n 01-22-2025 Albumin [Mass/Vol] 2.2 g/dL Low 3.5 - 5.0 g/dL [facility] ALP [Catalytic activity/Vol] 274 U/L High 40 - 150 U/L [facility] ALT [Catalytic activity/Vol] 44 U/L High NINF - 40 U/L [facility] AST [Catalytic activity/Vol] 51 U/L High [facility]/L [facility] Bilirubin [Mass/Vol] 0.9 mg/dL [facility] - 1.2 mg/dL [facility] Bilirubin.conjugated [Mass/Vol] 0.7 mg/dL High NINF - 0.5 mg/dL [facility] Protein [Mass/Vol] 7.6 g/dL 6.4 - 8.3 g/dL [facility] Laboratory - Chemistry and C hemistry - challengeon 01-22-2025 Glucose [Mass/Vol] 101 mg/dL High 70 - 100 mg/dL [facility] Glucose [Mass/Vol] 77 mg/dL 70 - 100 mg/dL [facility] Glucose [Mass/Vol] 81 mg/dL 70 - 100 mg/dL [facility] Magnesium [Mass/Vol] 2.6 mg/dL 1.6 - 2 .6 mg/dL [facility] Glucose [Mass/Vol] 82 mg/dL 70 - 100 mg/dL [facility] Laboratory - Coagulationon 0 01-22-2025 aPTT Coag (PPP) [Time] 42.7 s High 20.0 - 30.5 s [facility] INR Coag (PPP) [Relative time] 3.1 {INR} High 0.9 - 1.1 [facility] PT Coag (Bld) [Time] 31 s High 9.0 - 12.0 s [facility] Fibrin D-dimer FEU (PPP) [Mass/Vol] 14.21 mg/L High NINF - 0.50 mg/L [facility] Fibrinogen Coag (PPP) [Mass/Vol] 436 mg/dL High 200 - 400 mg/dL [facility] Laboratory - CoagulationOrde red By: Maggy Lancaster on 01-22-2025 aPTT Coag (PPP) [Time] 48.1 s High 20.0 - 30.5 s [facility] INR Coag (PPP) [Relative time] 5.5 {INR} Critically high 0.9 - 1.1 [facility] PT Coag (Bld) [Time] 52.6 s High 9.0 - 12.0 s [facility] Laboratory - CoagulationOrde red By: Michelle Olmstead on 01-22-2025 PT Coag (Bld) [Time] 75.4 s High 9.0 - 12.0 s [facility] Laboratory - Hematology and Cell countson 01-22-2025 Hemoglobin (Bld) [Mass/Vol] 7.7 g/dL Low 13.0 - 18.0 g/dL [facility] Magnesium [Mass/Vol]on 01-22 Interpretation and review of laboratory results Normal [facility] No Panel Informationon 01-22 Interpretation and review of laboratory results Abnormal [facility] Interpretation and review of laboratory results Abnormal [facility] Blood Expiration Date [id number] [facility] Dispense Status Transfused [facility] Blood Type 6200 [facility] PRODUCT CODE [id number] [facility] Unit ABO A [facility] Unit Number [id number] [facility] Unit RH Positive [facility] Unit Volume 209 ml [facility] Interpretation and review of laboratory results Normal [facility] Interpretation and review of laboratory results Normal [facility] Interpretation and review of laboratory results Abnormal [facility] Interpretation and review of laboratory results Abnormal [facility] Interpretation and review of laboratory results Normal [facility] No Panel InformationOrdered By: Maggy Lancaster on 01-22-2025 Interpretation and review of laboratory results Abnormal [facility] PT Coag (Bld) [Time]Ordered By: Michelle Olmstead on 01-22-2025 INR Coag (PPP) [Relative time] 8.1 {INR} Critically high 0.9 - 1.1 [facility] Interpretation and review of laboratory results Abnormal [facility] Phosphate [Moles/Vol]on 12-27 Phosphate [Mass/Vol] 6.8 mg/dL High 2.3 - 4 .7 mg/dL [facility] aPTT Coag (Bld) [Time]on aPTT Coag (PPP) [Time] 46 s High 20.0 - 30.5 s [facility] Basic metabolic 1998 panelOr dered By: Jarred José on 01-21-2025 Anion gap [Moles/Vol] 15 mmol/L High 3 - 13 mmol/L [facility] Calcium [Mass/Vol] 9.9 mg/dL 8.4 - 10. 2 mg/dL [facility] Chloride [Moles/Vol] 96 mmol/L Low 98 - 10 7 mmol/L [facility] CO2 [Moles/Vol] 24 mmol/L 22 - 29 mmol/L [facility] Creatinine [Mass/Vol] 2.99 mg/dL High 0.72 - 1.25 mg/dL [facility] GFR/1.73 sq M.predicted (S/P/Bld) [Vol rate/Area] 23.3 mL/min Low - PINF [facility] Glucose [Mass/Vol] 60 mg/dL Low 74 - 100 mg/dL [facility] Interpretation and review of laboratory results Abnormal [facility] Potassium [Moles/Vol] 4.3 mmol/L 3.5 - 5.1 mmol/L [facility] Sodium [Moles/Vol] 135 mmol/L Low 136 - 145 mmol/L [facility] Urea nitrogen [Mass/Vol] 46 mg/dL High 9 - 23 mg/d L [facility] CBC W Auto Differential pane l (Bld)on 01-21-2025 Basophils (Bld) [#/Vol] 0.1 10*3/uL 0.0 - 0.2 10*3/uL [facility] Basophils/100 WBC (Bld) 1 % 0.0 - 2.0 % [facility] Eosinophils (Bld) [#/Vol] 0.4 10*3/uL 0.0 - 0.5 10*3/uL [facility] Eosinophils/100 WBC (Bld) 3.8 % 0.0 - 6.0 % [facility] Erythrocyte distribution width (RBC) [Ratio] 18.6 % High 11.5 - 15.0 % [facility] Hematocrit (Bld) [Volume fraction] 27.3 % Low 40.0 - 52.0 % [facility] Hemoglobin (Bld) [Mass/Vol] 8.3 g/dL Low 13.0 - 18.0 g/dL [facility] Immature granulocytes (Bld) [#/Vol] 0.1 10*3/uL High NINF - 0.1 10*3/uL [facility] [employer] Immature granulocytes/100 WBC (Bld) 1.2 % 0.0 - 2.0 % [facility] Interpretation and review of laboratory results Abnormal [facility] Lymphocytes (Bld) [#/Vol] 1.7 10*3/uL 1.0 - 4.3 10*3/uL [facility] Lymphocytes/100 WBC (Bld) 16.5 % 15.0 - 45.0 % [facility] MCH (RBC) [Entitic mass] 27 pg 26. 0 - 34.0 pg [facility] MCHC (RBC) [Mass/Vol] 30.4 % Low 30.5 - 36.0 % [facility] MCV (RBC) [Entitic vol] 88.9 fL 77.0 - 99.0 fL [facility] Monocytes (Bld) [#/Vol] 1.4 10*3/uL High 0.0 - 0.9 10*3/uL [facility] Monocytes/100 WBC (Bld) 14.3 % High 5.0 - 13.0 % [facility] Neutrophils (Bld) [#/Vol] 6.4 10*3/uL 1.8 - 7.5 10*3/uL [facility] Neutrophils/100 WBC (Bld) 63.2 % 38.0 - 82.0 % [facility] Nucleated RBC/100 WBC (Bld) [Ratio] 0 % [facility] Platelet mean volume (Bld) [Entitic vol] 8.7 fL Low 9.0 - 12.7 fL [facility] Platelets (Bld) [#/Vol] 365 10*3/uL 140 - 440 10*3/uL [facility] RBC (Bld) [#/Vol] 3.07 10*6/uL Low 4.40 - 5.9 0 10*6/uL [facility] WBC (Bld) [#/Vol] 10.1 10*3/uL 3.6 - 10.7 10*3/uL [facility] CBC panel Auto (Bld)Ordered By: Piedad Alvarado on 01-21-2025 Erythrocyte distribution width (RBC) [Ratio] 18.6 % High 11.5 - 15.0 % [facility] Hematocrit (Bld) [Volume fraction] 25.3 % Low 40.0 - 52.0 % [facility] Hemoglobin (Bld) [Mass/Vol] 8 g/dL Low 13.0 - 18.0 g/dL [facility] Interpretation and review of laboratory results Abnormal [facility] MCH (RBC) [Entitic mass] 27.7 pg 26. 0 - 34.0 pg [facility] MCHC (RBC) [Mass/Vol] 31.6 % 30.5 - 36.0 % [facility] MCV (RBC) [Entitic vol] 87.5 fL 77.0 - 99.0 fL [facility] Platelet mean volume (Bld) [Entitic vol] 9.1 fL 9.0 - 12.7 fL [facility] Platelets (Bld) [#/Vol] 353 10*3/uL 140 - 440 10*3/uL [facility] RBC (Bld) [#/Vol] 2.89 10*6/uL Low 4.40 - 5.9 0 10*6/uL [facility] WBC (Bld) [#/Vol] 9.2 10*3/uL 3.6 - 10.7 10*3/uL [facility] Hemoglobin (Bld) [Mass/Vol]o n 01-21-2025 Hematocrit (Bld) [Volume fraction] 22.4 % Low 40.0 - 52.0 % [facility] Interpretation and review of laboratory results Abnormal [facility] Laboratory - Chemistry and C hemistry - challengeon 01-21-2025 Glucose [Mass/Vol] 86 mg/dL 70 - 100 mg/dL [facility] Glucose [Mass/Vol] 92 mg/dL 70 - 100 mg/dL [facility] Glucose [Mass/Vol] 92 mg/dL 70 - 100 mg/dL [facility] Glucose [Mass/Vol] 107 mg/dL High 70 - 100 mg/dL [facility] Glucose [Mass/Vol] 129 mg/dL High 70 - 100 mg/dL [facility] Glucose [Mass/Vol] 67 mg/dL Low 70 - 100 mg/dL [facility] Magnesium [Mass/Vol] 2.5 mg/dL 1.6 - 2 .6 mg/dL [facility] Glucose [Mass/Vol] 74 mg/dL 70 - 100 mg/dL [facility] Laboratory - CoagulationOrde red By: Treva Mcfarland on 01-21-2025 PT Coag (Bld) [Time] 73.5 s High 9.0 - 12.0 s [facility] Laboratory - Hematology and Cell countson 01-21-2025 Hemoglobin (Bld) [Mass/Vol] 7.1 g/dL Low 13.0 - 18.0 g/dL [facility] Magnesium [Mass/Vol]on 01-21 Interpretation and review of laboratory results Normal [facility] No Panel Informationon 01-21 Interpretation and review of laboratory results Normal [facility] Interpretation and review of laboratory results Normal [facility] Interpretation and review of laboratory results Normal [facility] Interpretation and review of laboratory results Abnormal [facility] Interpretation and review of laboratory results Abnormal [facility] Interpretation and review of laboratory results Abnormal [facility] Interpretation and review of laboratory results Normal [facility] PT Coag (Bld) [Time]Ordered By: Treva Mcfarland on 01-21-2025 INR Coag (PPP) [Relative time] 7.9 {INR} Critically high 0.9 - 1.1 [facility] Interpretation and review of laboratory results Abnormal [facility] Phosphate [Moles/Vol]on 12-27 Interpretation and review of laboratory results Abnormal [facility] Phosphate [Mass/Vol] 5.3 mg/dL High 2.3 - 4 .7 mg/dL [facility] Basic metabolic 1998 panelon 01-20-2025 Anion gap [Moles/Vol] 15 mmol/L High 3 - 13 mmol/L [facility] Calcium [Mass/Vol] 9.2 mg/dL 8.4 - 10. 2 mg/dL [facility] Chloride [Moles/Vol] 98 mmol/L 98 - 10 7 mmol/L [facility] CO2 [Moles/Vol] 22 mmol/L 22 - 29 mmol/L [facility] Creatinine [Mass/Vol] 4.31 mg/dL High 0.72 - 1.25 mg/dL [facility] GFR/1.73 sq M.predicted (S/P/Bld) [Vol rate/Area] 15 mL/min Low - PINF [facility] Glucose [Mass/Vol] 68 mg/dL Low 74 - 100 mg/dL [facility] Interpretation and review of laboratory results Abnormal [facility] Potassium [Moles/Vol] 4.8 mmol/L 3.5 - 5.1 mmol/L [facility] Sodium [Moles/Vol] 135 mmol/L Low 136 - 145 mmol/L [facility] Urea nitrogen [Mass/Vol] 91 mg/dL High 9 - 23 mg/d L [facility] Blood type and Crossmatch greg guan (Bld)on 01-20-2025 ABO group Nom (Bld) O [facility] Blood group antibody screen GEL Ql Negative [facility] D Ag Ql (RBC) Negative [facility] CBC W Auto Differential pane l (Bld)Ordered By: Haley Vitale on 01-20-2025 Basophils (Bld) [#/Vol] 0.1 10*3/uL 0.0 - 0.2 10*3/uL [facility] Basophils/100 WBC (Bld) 1.1 % 0.0 - 2.0 % [facility] Eosinophils (Bld) [#/Vol] 0.5 10*3/uL 0.0 - 0.5 10*3/uL [facility] Eosinophils/100 WBC (Bld) 4.5 % 0.0 - 6.0 % [facility] Erythrocyte distribution width (RBC) [Ratio] 18.3 % High 11.5 - 15.0 % [facility] Hematocrit (Bld) [Volume fraction] 21.3 % Low 40.0 - 52.0 % [facility] Hemoglobin (Bld) [Mass/Vol] 6.6 g/dL Critically low 13.0 - 18.0 g/dL [facility] Immature granulocytes (Bld) [#/Vol] 0.1 10*3/uL High NINF - 0.1 10*3/uL [facility] Immature granulocytes/100 WBC (Bld) 1 % 0.0 - 2.0 % [facility] Interpretation and review of laboratory results Abnormal [facility] Lymphocytes (Bld) [#/Vol] 1.2 10*3/uL 1.0 - 4.3 10*3/uL [facility] Lymphocytes/100 WBC (Bld) 11.6 % Low 15.0 - 45.0 % [facility] MCH (RBC) [Entitic mass] 27.4 pg 26. 0 - 34.0 pg [facility] MCHC (RBC) [Mass/Vol] 31 % 30.5 - 36.0 % [facility] MCV (RBC) [Entitic vol] 88.4 fL 77.0 - 99.0 fL [facility] Monocytes (Bld) [#/Vol] 1.1 10*3/uL High 0.0 - 0.9 10*3/uL [facility] Monocytes/100 WBC (Bld) 10.1 % 5.0 - 13.0 % [facility] Neutrophils (Bld) [#/Vol] 7.5 10*3/uL 1.8 - 7.5 10*3/uL [facility] Neutrophils/100 WBC (Bld) 71.7 % 38.0 - 82.0 % [facility] Nucleated RBC/100 WBC (Bld) [Ratio] 0 % [facility] Platelet mean volume (Bld) [Entitic vol] 9 fL 9.0 - 12.7 fL [facility] Platelets (Bld) [#/Vol] 279 10*3/uL 140 - 440 10*3/uL [facility] RBC (Bld) [#/Vol] 2.41 10*6/uL Low 4.40 - 5.9 0 10*6/uL [facility] WBC (Bld) [#/Vol] 10.5 10*3/uL 3.6 - 10.7 10*3/uL [facility] CT Abdomen and Pelvis W cont rast Dimitrios 01-20-2025 [facility] RADIOLOGY [facility] RADIOLOGY [facility] Radiology Study observation (narrative) [facility] CT Abdomen and Pelvis W cont rast IVOrdered By: Karly Parker on 01-20-2025 [facility] Work Phone: Hemoglobin (Bld) [Mass/Vol]o n 01-20-2025 Hematocrit (Bld) [Volume fraction] 25.8 % Low 40.0 - 52.0 % [facility] Interpretation and review of laboratory results Abnormal [facility] Hematocrit (Bld) [Volume fraction] 25.7 % Low 40.0 - 52.0 % [facility] Interpretation and review of laboratory results Abnormal [facility] Hematocrit (Bld) [Volume fraction] 25.8 % Low 40.0 - 52.0 % [facility] Interpretation and review of laboratory results Abnormal [facility] Laboratory - Chemistry and C hemistry - challengeon 01-20-2025 Magnesium [Mass/Vol] 2.8 mg/dL High 1.6 - 2 .6 mg/dL [facility] Laboratory - Hematology and Cell countson 01-20-2025 Hemoglobin (Bld) [Mass/Vol] 8.3 g/dL Low 13.0 - 18.0 g/dL [facility] Hemoglobin (Bld) [Mass/Vol] 8.2 g/dL Low 13.0 - 18.0 g/dL [facility] Hemoglobin (Bld) [Mass/Vol] 8.2 g/dL Low 13.0 - 18.0 g/dL [facility] Magnesium [Mass/Vol]on 01-20 [facility] No Panel Informationon 01-20 Interpretation and review of laboratory results Abnormal [facility] Phosphate [Moles/Vol]on 12-27 Phosphate [Mass/Vol] 6.1 mg/dL High 2.3 - 4 .7 mg/dL [facility] No Panel Informationon 01-19 P [place] 69 degrees [facility] NH Interval 148 ms [facility] QRS [place] 93 degrees [facility] QRSD Interval 113 ms [facility] QT Interval 413 ms [facility] QTC Interval 515 ms [facility] T Wave [place] 87 degrees [facility] CV EPIPHANY [facility] 4h Troponin HS (Serial 3rd Troponin) 94 ng/L High NINF - 35 ng/L [facility] Interpretation and review of laboratory results Abnormal [facility] 2h Troponin HS (Serial 2nd Troponin) 106 ng/L High NINF - 35 ng/L [facility] Interpretation and review of laboratory results Abnormal [facility] Vital signson 01-19-2025 Heart rate 93 /min bpm [facility] Airwayon 10-12-2024 Rudolph German CRNA 10/12/2024 7:56 AM Airway Date/Time: 10/12/2024 7:38 AM Urgency: scheduled Airway not difficult General Information and Staff Patient location during procedure: Procedural Anesthesiologist: Vincent Wilson MD Resident/PHOTOGRAMMETRIC STEREO COMPILER: Rudolph German CRNA Performed: anesthesiologist Indications and [...] 21 Number of attempts at approach: 1 [facility] Arterial Lineon 10-12-2024 Rudolph German CRNA 10/12/2024 [...] procedure well with no complications. Staffing Performed: PHOTOGRAMMETRIC STEREO COMPILER Resident/PHOTOGRAMMETRIC STEREO COMPILER: Rudolph German CRNA [facility] Central Venous Lineon 2024 Rudolph German CRNA [...] during the procedure: no complications. Staffing Performed: PHOTOGRAMMETRIC STEREO COMPILER Resident/PHOTOGRAMMETRIC STEREO COMPILER: Rudolph German, PHOTOGRAMMETRIC STEREO COMPILER [facility] No Panel Informationon 10-[address] [facility] [address] Head WO contraston 2024 No acute intracranial hemorrhage or large territorial infarct. Nonspecific small air locules within the scalp adjacent to the right temporal bone and within the right mime artist space. Pneumatized secretions within the maxillary sinuses may correspond with acute sinusitis in the appropriate clinical setting. Report Dictated on Electronically Signed By: Yvonne Abraham DO Electronically Signed Date/Time: 10/03/2024 2:14 PM EST [facility] Patient Name: JUN SNYDER : 1965 [...] right temporal bone and within the right mime artist space. [facility] Yvonne Abraham DO - 10/03/2024 Patient Name: [...] right temporal bone and within the right mime artist space. IMPRESSION: No acute intracranial hemorrhage or large territorial infarct. Nonspecific small air locules within the scalp adjacent to the right temporal bone and within the right mime artist space. Pneumatized secretions within the maxillary sinuses may correspond with acute sinusitis in the appropriate clinical setting. Report Dictated on Electronically Signed By: Yvonne Abraham DO Electronically Signed Date/Time: 10/03/2024 2:14 PM EST [facility] [employer] Radiology Study [facility] (narrative[facility] Head WO contrastOrdered B y: Yvonne Abraham on 10-03-2024 [employer] Work Phone: XR Chest Single viewon 10-03 No focal consolidation or pulmonary edema. Report Dictated on Electronically Signed By: Bob Ken MD Electronically Signed Date/Time: 10/03/2024 12:22 PM [employer] [facility] 1965 [id number] Exam Date/Time: 10/03/2024 12:12 Procedure: XR CHEST 1 VIEW Ordering Provider: FRANK NISHIT Reason For Exam: CHEST PAIN PORTABLE CHEST CLINICAL INDICATION: CHEST PAIN TECHNIQUE: Portable AP COMPARISON: 08/16/2023 FINDINGS: No focal consolidation or pulmonary edema. No pleural effusions or pneumothorax. The cardiac silhouette is mildly enlarged. The mediastinum is unremarkable. Degenerative change of the thoracic spine is noted. [employer] Bob Ken MD - 10/03/2024 [facility] Name: JUN SNYDER : 1965 [id number] Exam Date/Time: 10/03/2024 12:12 Procedure: XR CHEST [...] Electronically Signed Date/Time: 10/03/2024 12:22 PM EST [employer] Radiology Study observation (narrative) [facility] XR Chest Single viewOrdered By: Bob Ken on 10-03-2024 [employer] Work Phone: ECG 12 leadon 08-28-2024 Sinus Rhythm -Incomplete right bundle branch block. -Left atrial enlargement. Voltage criteria for LVH (S(V1)+R(V6) exceeds 3.50 mV). -ST depression -Seen with left ventricular hypertrophy (strain) -consider ischemia. [employer] CNPAllsion 04-12-2024 CNPN Telephone (TXCTGL) JUN SNYDER ([id number]) 1965 M Date Time Provider Department 04/12/24 [...] Status:Closed by LANIE LUIS on 04/12/24 Normal [facility] ECG 12 leadon 11-12-2023 Sinus Rhythm -Left atrial enlargement. IRBBB LVH with repolarization ABNORMAL [facility] [employer] ECG 12 leadOrdered By: Michaela Coombs on 11-12-2023 [facility] [employer] Work Phone: Basic metabolic 1998 panelon 08-17-2023 Anion gap [Moles/Vol] 15 mmol/L High 3 - 13 mmol/L [facility] [employer] Calcium [Mass/Vol] 8.7 mg/dL 8.4 - 10. 4 mg/dL [facility] [employer] Chloride [Moles/Vol] 94 mmol/L Low 98 - 10 7 mmol/L [facility] [employer] CO2 [Moles/Vol] 26 mmol/L 22 - 30 mmol/L [facility] [employer] Creatinine [Mass/Vol] 6.78 mg/dL High 0.66 - 1.25 mg/dL [facility] [employer] GFR/1.73 sq M.predicted MDRD (S/P/Bld) [Vol rate/Area] 8.8 mL/min/{1.73_m2} Low - PINF [facility] Comment on above: Calculation based on the Chronic Kidney Disease Epidemiology Collaboration (CKD-EPI) equation refit without adjustment for race Glucose [Mass/Vol] 102 mg/dL High 70 - 100 mg/dL [facility] [employer] Interpretation and review of laboratory results Abnormal [facility] Potassium [Moles/Vol] 5.0 mmol/L 3.5 - 5.1 mmol/L [facility] [employer] Sodium [Moles/Vol] 134 mmol/L Low 135 - 145 mmol/L [facility] [employer] Urea nitrogen [Mass/Vol] 46 mg/dL High 9 - 20 mg/d L [facility] Laboratory - Chemistry and C hemistry - challengeon 08-17-2023 Magnesium [Mass/Vol] 2.1 mg/dL 1.6 - 2 .3 mg/dL [facility] [employer] TSH Qn 0.981 m[IU]/L [facility] [employer] TSH Qn 1.190 m[IU]/L [facility] Troponin I.cardiac [Mass/Vol] 0.094 ng/mL High NINF - 0.034 ng/mL [facility] [employer] Magnesium [Mass/Vol]on 08-17 Interpretation and review of laboratory results Normal [facility] [employer] No Panel InformationOrdered By: Ruy Milton on 08-17-2023 P [place] degrees [employer] Work Phone: NH Interval ms [employer] Work Phone: QRS [place] 61 degrees [employer] Work Phone: QRSD Interval 114 ms [employer] Work Phone: QT Interval 364 ms [employer] Work Phone: QTC Interval 491 ms [employer] Work Phone: T Wave [place] -20 degrees [employer] Work Phone: [employer] Work Phone: No Panel Informationon 08-17 ATRIAL [...] On 08-17-2023 6:57:31 EST by Ruy Milton [facility] TSH Qnon 08-17-2023 Interpretation and review of laboratory results Normal [facility] Interpretation and review of laboratory results Normal [facility] Troponin I.cardiac [Mass/Vol ]on 08-17-2023 Interpretation and review of laboratory results Abnormal [facility] Patients with high levels of Biotin oral intake (ie >5 mg/day) may have falsely decreased Troponin levels. [facility] US Heart TransthoracicOrdere d By: Jr Shah on 08-17-2023 Ao Root Index 1.58 cm/m2 [facility] Work Phone: Aortic Root 3.3 cm [facility] Work Phone: Ascending Aorta 3.3 cm [facility] Work Phone: Ascending Aorta Index 1.58 cm/m2 [facility] Work Phone: AV Area by Peak Velocity 1.1 cm2 [facility] Work Phone: AV Area by VTI 1.1 cm2 [facility] Work Phone: AV AT 97.05 ms [facility] Work Phone: AV Mean Gradient 34 mmHg [facility] Work Phone: AV Mean Velocity 2.7 m/s [facility] Work Phone: AV Peak Gradient 59 mmHg [facility] Work Phone: AV Peak Velocity 3.8 m/s [facility] Work Phone: AV Velocity Ratio 0.26 [facility] Work Phone: AV VTI 84.0 cm [facility] Work Phone: MALU/BSA Peak Velocity 0.5 cm2/m2 [facility] Work Phone: MALU/BSA VTI 0.5 cm2/m2 [facility] Work Phone: E/E' Lateral 11.44 [facility] Work Phone: E/E' Ratio (Averaged) 13.08 [facility] [employer] Work Phone: E/E' Septal 14.71 [facility] Work Phone: EF BP 62 % 55 - 100 % [facility] Work Phone: Est. RA Pressure [address] [facility] Work Phone: Fractional Shortening 2D 30 % 28 - 44 % [facility] [employer] Work Phone: Interpretation and review of laboratory results Abnormal [facility] [employer] Work Phone: IVC Diameter 1.1 cm [facility] [employer] Work Phone: IVSd 1.1 cm Abnormal 0.6 - 1.0 cm [facility] Work Phone: LA Diameter 4.0 cm [facility] [employer] Work Phone: LA Size Index 1.91 cm/m2 [facility] Work Phone: LA Volume 2C 66 mL Abnormal 18 - 58 mL [facility] [employer] Work Phone: LA Volume 4C 71 mL Abnormal 18 - 58 mL [facility] [employer] Work Phone: LA Volume A/L 75 mL [facility] Work Phone: LA Volume BP 69 mL Abnormal 18 - 58 mL [facility] [employer] Work Phone: LA Volume Index 2C 32 mL/m2 16 - 34 mL/m2 [facility] Work Phone: LA Volume Index 4C 34 mL/m2 16 - 34 mL/m2 [facility] [employer] Work Phone: LA Volume Index A/L 36 mL/m2 16 - 34 mL/m2 [facility] Work Phone: LA Volume Index BP 33 ml/m2 16 - 34 ml/m2 [facility] [employer] Work Phone: LA/AO Root Ratio 1.21 [facility] Work Phone: LV E' Lateral Velocity 9 cm/s [facility] Work Phone: LV E' Septal Velocity 7 cm/s [facility] Work Phone: LV EDV A2C 104 mL [facility] Work Phone: LV EDV A4C 89 mL [facility] Work Phone: LV EDV BP 97 mL 67 - 155 mL [facility] Work Phone: LV EDV Index A2C 50 mL/m2 [facility] Work Phone: LV EDV Index A4C 43 mL/m2 [facility] Work Phone: LV EDV Index BP 46 mL/m2 [facility] Work Phone: LV Ejection Fraction A2C 61 % [facility] Work Phone: LV Ejection Fraction A4C 64 % [facility] Work Phone: LV ESV A2C 41 mL [facility] Work Phone: LV ESV A4C 32 mL [facility] Work Phone: LV ESV BP 37 mL 22 - 58 mL [facility] Work Phone: LV ESV Index A2C 20 mL/m2 [facility] Work Phone: LV ESV Index A4C 15 mL/m2 [facility] Work Phone: LV ESV Index BP 18 mL/m2 [facility] Work Phone: LV Mass 2D 173.6 g 88 - 224 g [facility] Work Phone: LV Mass 2D Index 83.1 g/m2 49 - 115 g/m2 [facility] Work Phone: LV RWT Ratio 0.56 [facility] Work Phone: LVIDd 4.3 cm 4.2 - 5.9 cm [facility] Work Phone: LVIDd Index 2.06 cm/m2 [facility] Work Phone: LVIDs 3.0 cm [facility] Work Phone: LVIDs Index 1.44 cm/m2 [facility] Work Phone: LVOT Area 4.2 cm2 [facility] Work Phone: [phone] LVOT Cardiac Output 7.6 liter/minute [facility] Work Phone: LVOT Diameter 2.3 cm [facility] Work Phone: LVOT Mean Gradient 2 mmHg [facility] Work Phone: LVOT Peak Gradient 4 mmHg [facility] Work Phone: LVOT Peak Velocity 1.0 m/s [facility] Work Phone: [phone] LVOT Stroke Volume Index 46.5 mL/m2 [facility] Work Phone: LVOT SV 97.2 ml [facility] Work Phone: LVOT VTI 23.4 cm [facility] Work Phone: [phone] LVOT:AV VTI Index 0.28 [facility] ealth Work Phone: LVPWd 1.2 cm Abnormal 0.6 - 1.0 cm [facility] Work Phone: [phone] MV A Velocity 0.79 m/s [facility] Work Phone: [phone] MV Area by PHT 1.9 cm2 [facility] Work Phone: [phone] MV E Velocity 1.03 m/s [facility] Work Phone: [phone] MV E Wave Deceleration Time 278.6 ms [facility] Work Phone: MV E/A 1.30 [facility] Work Phone: MV Mean Gradient 3 mmHg [facility] alth Work Phone: MV Peak Gradient 6 mmHg [facility] Work Phone: MV PHT 113.0 ms [facility] Work Phone: RA Area 4C 79.9 mL [facility] Work Phone: RA Area 4C 77.7 mL [facility] Work Phone: RV Basal Dimension 4.6 cm [facility] Work Phone: RV Mid Dimension 3.3 cm [employer] [facility] Work Phone: [phone] RVSP 30 mmHg [facility] Work Phone: Sinotubular Junction 3.0 cm [facility] matt Health Work Phone: TR Max Velocity 2.72 m/s [employer] [facility] Work Phone: TR Peak Gradient 30 mmHg [facility] Work Phone: [facility] Work Phone: [facility] Transthoracicon Aortic Valve: Trileaflet. Moderately thickened cusps. [...] on 08-17-2023 Heart rate 109 /min bpm [employer] Work Phone: Basic metabolic 1998 panelon 08-16-2023 Anion gap [Moles/Vol] 15 mmol/L High 3 - 13 mmol/L [facility] [employer] Calcium [Mass/Vol] 9.1 mg/dL 8.4 - 10. 4 mg/dL [facility] Chloride [Moles/Vol] 93 mmol/L Low 98 - 10 7 mmol/L [facility] CO2 [Moles/Vol] 25 mmol/L 22 - 30 mmol/L [facility] Creatinine [Mass/Vol] 6.01 mg/dL High 0.66 - 1.25 mg/dL [facility] GFR/1.73 sq M.predicted MDRD (S/P/Bld) [Vol rate/Area] 10.2 mL/min/{1.73_m2} Low - PINF [facility] Comment on above: Calculation based on the Chronic Kidney Disease Epidemiology Collaboration (CKD-EPI) equation refit without adjustment for race Glucose [Mass/Vol] 110 mg/dL High 70 - 100 mg/dL [facility] Interpretation and review of laboratory results Abnormal [facility] Potassium [Moles/Vol] 4.5 mmol/L 3.5 - 5.1 mmol/L [facility] Sodium [Moles/Vol] 133 mmol/L Low 135 - 145 mmol/L [employer] Urea nitrogen [Mass/Vol] 40 mg/dL High 9 - 20 mg/d L [facility] CBC W Auto Differential pane l (Bld)Ordered By: Aric Montejo on 08-16-2023 Basophils (Bld) [#/Vol] 0.1 10*3/uL 0.0 - 0.2 10*3/uL [facility] Basophils/100 WBC (Bld) 1.3 % 0.0 - 2.0 % [facility] Eosinophils (Bld) [#/Vol] 0.5 10*3/uL 0.0 - 0.5 10*3/uL [facility] Eosinophils/100 WBC (Bld) 5.1 % 1.0 - 6.0 % [facility] Erythrocyte distribution width (RBC) [Ratio] 14.7 % High 11.5 - 14.5 % [facility] Hematocrit (Bld) [Volume fraction] 41.6 % 40.0 - 52.0 % [facility] Hemoglobin (Bld) [Mass/Vol] 14.5 g/dL 13.0 - 18.0 g/dL [facility] Interpretation and review of laboratory results Abnormal [facility] Lymphocytes (Bld) [#/Vol] 1.3 10*3/uL 1.0 - 4.3 10*3/uL [facility] Lymphocytes/100 WBC (Bld) 14.2 % Low 20.0 - 40.0 % [facility] MCH (RBC) [Entitic mass] 31.5 pg 26. 0 - 34.0 pg [facility] MCHC (RBC) [Mass/Vol] 34.8 % 32.0 - 36.0 % [facility] MCV (RBC) [Entitic vol] 90.5 fL 80.0 - 98.0 fL [facility] Monocytes (Bld) [#/Vol] 1.3 10*3/uL High 0.0 - 0.8 10*3/uL [facility] Monocytes/100 WBC (Bld) 13.5 % High 2.0 - 10.0 % [facility] Neutrophils (Bld) [#/Vol] 6.2 10*3/uL 1.8 - 7.0 10*3/uL [facility] Neutrophils/100 WBC (Bld) 65.9 % 40.0 - 80.0 % [facility] Nucleated RBC/100 WBC (Bld) [Ratio] 0.1 % [facility] Platelet mean volume (Bld) [Entitic vol] 7.3 fL Low 7.4 - 12.4 fL [facility] Platelets (Bld) [#/Vol] 254 10*3/uL 140 - 440 10*3/uL [facility] RBC (Bld) [#/Vol] 4.60 10*6/uL 4.40 - 5.9 0 10*6/uL [facility] WBC (Bld) [#/Vol] 9.5 10*3/uL 3.6 - 10.7 10*3/uL [facility] Laboratory - Chemistry and C hemistry - challengeon 08-16-2023 Troponin I.cardiac [Mass/Vol] 0.062 ng/mL High [facility] 0.034 ng/mL [facility] Troponin I.cardiac [Mass/Vol] 0.037 ng/mL High [facility] - 0.034 ng/mL [facility] Troponin I.cardiac [Mass/Vol ]on 08-16-2023 Interpretation and review of laboratory results Abnormal [facility] Patients with high levels of Biotin oral intake (ie >5 mg/day) may have falsely decreased Troponin levels. [facility] Interpretation and review of laboratory results Abnormal [facility] Patients with high levels of Biotin oral intake (ie >5 mg/day) may have falsely decreased Troponin levels. [facility] XR Chest Single viewon 08-16 1. Cardiomegaly. 2. No other acute findings. Report Dictated on Electronically Signed By: Justo Milan MD Electronically Signed Date/Time: 08/16/2023 6:42 PM EST [facility] [place] [employer] Patient Name: JUN SNYDER : 1965 Exam Date/Time: 08/16/2023 18:39 Procedure: XR CHEST 1 VIEW Ordering Provider: GRANADOS SHAYA Reason For Exam: CHEST PAIN CHEST PORTABLE CLINICAL INDICATION: CHEST PAIN TECHNIQUE: Portable chest x-ray(s). COMPARISON: September,. FINDINGS: Mild cardiomegaly, stable. Lungs are grossly clear. No significant vascular congestion. No apparent pneumothorax. Bony thorax grossly unremarkable. [facility] [place] [employer] Justo Milan MD - 08/16/2023 Patient [...] Electronically Signed Date/Time: 08/16/2023 6:42 PM EST [facility] Radiology Study observation (narrative) [facility] XR Chest Single viewOrdered By: Justo Milan on 08-16-2023 [facility] [employer] Work Phone: [employer] BLDon 12-17-2022 Potassium [Moles/Vol] 7.6 mmol/L Critically high 3.7-5.1 [facility] Comment on above: Order Comment: Dominick richards Type: BLOOD SPECIMEN Ordering Facility: [facility] Address: , , Performed By: #### K 1 #### [facility] CLIA [id number] [address] OF [facility] POTASSIUM BLDon 08-19-2022 Potassium [Moles/Vol] 7.0 mmol/L Critically high 3.7-5.1 [facility] Comment on above: Order Comment: Speci maurice Type: BLOOD SPECIMEN Ordering Facility: [facility] Address: , , Performed By: #### K 1 #### [facility] CLIA [id number] [address] OF [facility] POTASSIUM BLDon 06-16-2022 Potassium [Moles/Vol] 6.3 mmol/L Critically high 3.7-5.1 [facility] Comment on above: Order Comment: Speci men Type: BLOOD SPECIMEN Ordering Facility: [facility] Address: , , Performed By: #### K 1 #### [facility] CLIA [id number] [address] Hgb Bld-ncon 05-12-2022 Hemoglobin (Bld) [Mass/Vol] 8.4 g/dL Low 13.0-17.0 [facility] Comment on above: Order Comment: Speci men Type: BLOOD SPECIMEN Ordering Facility: [facility] Address: , , Performed By: #### 7 18-7 #### [facility] CLIA [id number] [address] XA Special Angiography Proce indira 09-15-2021 XA Special Angiography Procedure Patient Name: JUN SNYDER Special Procedures ACCESSION EXAM DATE/TIME PROCEDURE ORDERING PROVIDER [id number] 09/15/2021 11:10 EST XA Special Angiography MD [...] and the needle was removed. A 3 German dilator was advanced over the wire and [...] CHRISTOPHER Transcribed Date and Time: 09/15/2021 12:16 [facility] IR DIALYSIS INJ W/ANGIOPLAST Yon 11-22-2020 IR [...] This was initially converted to a 6 German sheath and later converted to a 7 German sheath. Reflux fistulogram for done in several [...] levels with a 6 x 40 mm [place] balloon. This gave minimal improvement. We then exchanged the 6 mm balloon for an 8 x 40 mm [place] balloon. This gave more moderate improvement. At that point we changed the 6 German sheath to a 7 German sheath and placed a 9 x 40 [...] site of puncture trauma. With the 7 German sheath removed pressure was held on the [...] dilation of stenotic lesion as noted above. Core Mounter: PSCZulma Transcribe Date/Time: Nov 22 2020 2:07P Dictated by : VINCENT DE LA ROSA MD This examination was interpreted and the report reviewed and electronically signed by: VINCENT DE LA ROSA MD on Nov 22 2020 2:13PM EST Normal [facility] XA SPECIAL ANGIOGRAPHY PROCE Indira 10-17-2020 Patient Name: GLENN SNYDER Special Procedures ACCESSION EXAM DATE/TIME PROCEDURE ORDERING PROVIDER [id number] 10/17/2020 08:27 EST XA Special Angiography MD AD, JAYAPRAKAREYNALDO Procedure BISI Reason For Exam (XA Special [...] KEVIN Transcribed Date and Time: 10/17/2020 1:05 [place], [place] Apple Mckeon Incoming Radiology Results From [facility] - 10/17/2020 1:05 PM EST Patient Name: GLENN SNYDER Special Procedures ACCESSION EXAM DATE/TIME PROCEDURE ORDERING PROVIDER 10/17/2020 08:27 EST XA Special Angiography MD DA, CINDY MATHEWS Reason For Exam (XA Special Angiography Procedure) [...] KEVIN Transcribed Date and Time: 10/17/2020 1:05 [place], [place] XA Special Angiography Proce dureon 10-17-2020 XA Special Angiography Procedure Patient Name: GLENN SNYDER Special Procedures ACCESSION EXAM DATE/TIME PROCEDURE ORDERING PROVIDER [id number] 10/17/2020 08:27 EST XA Special Angiography MD DA, CINDY MATHEWS Reason For Exam (XA Special Angiography Procedure) [...] Transcribed Date and Time: 10/17/2020 1:05 Normal [facility] Basic Metabolic Panelon 04-27 Anion gap [Moles/Vol] 17 mmol/L Normal 9-18 [facility] Comment on above: Performed By: #### B MP #### [facility] 1 [place], [place] [address] Calcium [Mass/Vol] 9.1 mg/dL Normal 8.5-10.2 [facility] Comment on above: Performed By: #### B MP #### [facility] 1 [place], [place] [address] Chloride [Moles/Vol] 100 mmol/L Normal 97-105 [facility] Comment on above: Performed By: #### B MP #### [facility] 1 [place], [place] [address] CO2 Blood 18 mmol/L Low 22-30 [facility] Comment on above: Performed By: #### B MP #### [facility] 1 [place], [place] [address] Creatinine [Mass/Vol] 13.39 mg/dL High 0.73-1.22 [facility] Comment on above: Performed By: #### B MP #### [address] [address] Glucose [Mass/Vol] 83 mg/dL Normal 74-99 [facility] Comment on above: Result Comment: [place] Diabetes Association (ADA) provides guidance for cutoff [...] Medical Care in Diabetes 2016; [place] Diabetes Association. Diabetes Care. 2016;39(Suppl 1). Performed By: #### B MP #### [place] [address] Potassium [Moles/Vol] 4.8 mmol/L Normal 3.7-5.1 [facility] Comment on above: Performed By: #### B MP #### [facility] 1 [place], [place] [address] Sodium [Moles/Vol] 135 mmol/L Low 136-144 [facility] Comment on above: Performed By: #### B MP #### [facility] [address] [place], [place] [address] Urea nitrogen [Mass/Vol] 61 mg/dL High 9-24 [facility] Comment on above: Performed By: #### B MP #### [facility] [address] [place], [place] [address] Hemogramon 05-10-2020 Erythrocyte distribution width (RBC) [Ratio] 12.7 % Normal 11.6-14.4 [facility] Comment on above: Performed By: #### C BC1 #### [facility] 1 [place], [place] [address] Hematocrit (Bld) [Volume fraction] 28.4 % Low 40.1-51.0 [facility] Comment on above: Performed By: #### C BC1 #### [address] [address] Hemoglobin (Bld) [Mass/Vol] 9.2 g/dL Low 13.7-17.5 [facility] Comment on above: Performed By: #### C BC1 #### [facility] 1 [place] [address] MCH (RBC) [Entitic mass] 30.6 pg Normal 25.7-32.2 [facility] Comment on above: Performed By: #### C BC1 #### [facility] 1 [place] [address] MCHC (RBC) [Mass/Vol] 32.4 % Normal 32.3-36.5 [facility] Comment on above: Performed By: #### C BC1 #### [facility] 1 [place] [address] MCV (RBC) [Entitic vol] 94.4 fL Normal 83.2-95.6 [facility] Comment on above: Performed By: #### C BC1 #### [facility] 1 [place] [address] Platelet mean volume (Bld) [Entitic vol] 10.1 fL Normal 8.7-12.0 [facility] Comment on above: Performed By: #### C BC1 #### [facility] 1 [place] [address] Platelets (Bld) [#/Vol] 278 thou/cmm Normal 141-365 [facility] Comment on above: Performed By: #### C BC1 #### [facility] 1 [place] [address] RBC (Bld) [#/Vol] 3.01 mil/cmm Low 4.63-6.08 [facility] Comment on above: Performed By: #### C BC1 #### [facility] 1 [place] [address] RDW SD 43.8 fl Normal 36.1-45.8 [facility] Comment on above: Performed By: #### C BC1 #### [facility] [address] [place] [address] WBC (Bld) [#/Vol] 8.58 thou/cmm Normal 4.23-9.07 [facility] Comment on above: Performed By: #### C BC1 #### [facility] 1 [place] [id number] MDRD GFRon 05-10-2020 GFR/1.73 sq M predicted among non-blacks MDRD (S/P/Bld) [Vol rate/Area] 3.89 mL/min/{1.73_m2} Normal >60mL/min/1.7 3m2 [facility] Comment on above: Result Comment: If t he patient is , multiply the result by 1.210. Performed By: #### G FR #### [facility] 1 [place] [address] Protimeon 05-10-2020 INR Coag (PPP) [Relative time] 0.98 {INR} Normal 0.90-1.30 [facility] Comment on above: Result Comment: Conchita min K Antagonist (VKA) Therapeutic Range: INR 2 to 3 (Target INR of 2.5) Note: For patients treated with VKA drugs, such as warfarin, the [place] College of Chest Physicians 2012 Guideline recommends [...] GH, et al. Chest 2012; 141:7S-47S Randall RA, et al. JACC 2017; 70: 252-289 Performed By: #### P T #### [facility] 1 [place] [address] PT Coag (PPP) [Time] 10.6 s Normal 9.7-13.0 [facility] Comment on above: Performed By: #### P T #### [address] [place], [place] [address] Rapid, COVID 19on 03-20-2020 Rapid, COVID 19 Negative Normal Negative [facility] Comment on above: Result Comment: This test has been authorized by the FDA under an Emergency Use Authorization (EUA). Performed By: #### R COVD #### [facility] 1 [place], [place] [address] Basic Metabolic Panelon 02-25 Anion gap [Moles/Vol] 14 mmol/L Normal 9-18 [facility] Comment on above: Performed By: #### B MP #### [facility] [address] [place], [place] [address] Calcium [Mass/Vol] 10.0 mg/dL Normal 8.5-10.2 [facility] Comment on above: Performed By: #### B MP #### [facility] [address] [place], [place] [address] Chloride [Moles/Vol] 95 mmol/L Low 97-105 [facility] Comment on above: Performed By: #### B MP #### [facility] [address] [place], [place] [address] CO2 Blood 26 mmol/L Normal 22-30 [facility] Comment on above: Performed By: #### B MP #### [facility] [address] [place], [place] [address] Creatinine [Mass/Vol] 9.29 mg/dL High 0.73-1.22 [facility] Comment on above: Performed By: #### B MP #### [facility] [address] [place], [place] [address] Glucose [Mass/Vol] 84 mg/dL Normal 74-99 [facility] Comment on above: Result Comment: The [place] Diabetes Association (ADA) provides guidance for cutoff [...] Medical Care in Diabetes 2016; [place] Diabetes Association. Diabetes Care. 2016;39(Suppl 1). Performed By: #### B MP #### [facility] [address] [place], [place] [address] Potassium [Moles/Vol] 3.7 mmol/L Normal 3.7-5.1 [facility] Comment on above: Performed By: #### B MP #### [facility] [address] [place], [place] [address] Sodium [Moles/Vol] 135 mmol/L Low 136-144 [facility] Comment on above: Performed By: #### B MP #### [facility] [address] [place], [place] [address] Urea nitrogen [Mass/Vol] 32 mg/dL High 9-24 [facility] Comment on above: Performed By: #### B MP #### [facility] [address] [place], [place] [address] Hematologyon 03-13-2020 INR Coag (PPP) [Relative time] 0.96 {INR} 0.90 - 1.30 [facility] PT Coag (PPP) [Time] 10.4 s 9.7 - 1 3.0 sec [facility] Hematocrit (Bld) [Volume fraction] 30.6 % Low 40.1 - 51.0 % [facility] Hemoglobin (Bld) [Mass/Vol] 10.8 g/dL Low 13.7 - 17.5 g/dL [facility] MCH (RBC) [Entitic mass] 31.0 pg 25. 7 - 32.2 pg [facility] MCV (RBC) [Entitic vol] 87.9 fL 83.2 - 95.6 fl [facility] Platelets (Bld) [#/Vol] 269 thou/cmm 141 - 365 thou/cmm [facility] RBC (Bld) [#/Vol] 3.48 mil/cmm Low 4.63 - 6.0 8 mil/cmm [facility] WBC (Bld) [#/Vol] 10.79 thou/cmm High 4.23 - 9 .07 thou/cmm [facility] Hemogramon 03-13-2020 Erythrocyte distribution width (RBC) [Ratio] 13.2 % Normal 11.6-14.4 [facility] Comment on above: Performed By: #### C BC1 #### [facility] [address] [place], [place] [address] Hematocrit (Bld) [Volume fraction] 30.6 % Low 40.1-51.0 [facility] Comment on above: Performed By: #### C BC1 #### [facility] [address] [place], [place] [address] Hemoglobin (Bld) [Mass/Vol] 10.8 g/dL Low 13.7-17.5 [facility] Comment on above: Performed By: #### C BC1 #### [facility] [address] [place], [place] [address] MCH (RBC) [Entitic mass] 31.0 pg Normal 25.7-32.2 [facility] Comment on above: Performed By: #### C BC1 #### [facility] [address] [place], [place] [address] MCHC (RBC) [Mass/Vol] 35.3 % Normal 32.3-36.5 [facility] Comment on above: Performed By: #### C BC1 #### [facility] 1 [place], [place] [address] MCV (RBC) [Entitic vol] 87.9 fL Normal 83.2-95.6 [facility] Comment on above: Performed By: #### C BC1 #### [facility] 1 [place], [place] [address] Platelet mean volume (Bld) [Entitic vol] 10.1 fL Normal 8.7-12.0 [facility] Comment on above: Performed By: #### C BC1 #### [facility] [address] [place], [place] [address] Platelets (Bld) [#/Vol] 269 thou/cmm Normal 141-365 [facility] Comment on above: Performed By: #### C BC1 #### [facility] [address] [place], [place] [address] RBC (Bld) [#/Vol] 3.48 mil/cmm Low 4.63-6.08 [facility] Comment on above: Performed By: #### C BC1 #### [facility] [address] [place], [place] [address] RDW SD 42.3 fl Normal 36.1-45.8 [facility] Comment on above: Performed By: #### C BC1 #### [facility] [address] [place], [place] [address] WBC (Bld) [#/Vol] 10.79 thou/cmm High 4.23-9.07 [facility] Comment on above: Performed By: #### C BC1 #### [facility] 1 [place] [id number] MDRD GFRon 03-13-2020 GFR/1.73 sq M predicted among non-blacks MDRD (S/P/Bld) [Vol rate/Area] 5.94 mL/min/{1.73_m2} Normal >60mL/min/1.7 3m2 [facility] Comment on above: Result Comment: If t he patient is , multiply the result by 1.210. Performed By: #### G FR #### [facility] 1 [place] [id number] Metabolic Panelon 03-13-2020 Anion gap [Moles/Vol] 14 mmol/L 9 - 18 mmol/L [facility] Calcium [Mass/Vol] 10.0 mg/dL 8.5 - 10. 2 mg/dL [facility] Chloride [Moles/Vol] 95 mmol/L Low 97 - 10 5 mmol/L [facility] CO2 [Moles/Vol] 26 mmol/L 22 - 30 mmol/L [facility] Creatinine [Mass/Vol] 9.29 mg/dL High 0.73 - 1.22 mg/dL [facility] Glucose [Mass/Vol] 84 mg/dL 74 - 99 mg/dL [facility] Potassium [Moles/Vol] 3.7 mmol/L 3.7 - 5.1 mmol/L [facility] Sodium [Moles/Vol] 135 mmol/L Low 136 - 144 mmol/L [facility] Urea nitrogen [Mass/Vol] 32 mg/dL High 9 - 24 mg/d L [facility] Otheron 03-13-2020 GFR/1.73 sq M.predicted MDRD (S/P/Bld) [Vol rate/Area] 5.94 mL/min/{1.73_m2} >60mL/min/1.7 3m2 [facility] Erythrocyte distribution width (RBC) [Entitic vol] 42.3 fL 36.1 - 45.8 fl [facility] Erythrocyte distribution width (RBC) [Ratio] 13.2 % 11.6 - 14.4 % [facility] MCHC (RBC) [Mass/Vol] 35.3 % 32.3 - 36.5 % [facility] Platelet mean volume (Bld) [Entitic vol] 10.1 fL 8.7 - 12.0 fl [facility] Protimeon 03-13-2020 INR Coag (PPP) [Relative time] 0.96 {INR} Normal 0.90-1.30 [facility] Comment on above: Result Comment: Conchita min K Antagonist (VKA) Therapeutic Range: INR 2 to 3 (Target INR of 2.5) Note: For patients treated with VKA drugs, such as warfarin, the [place] [employer] of Chest Physicians 2012 Guideline recommends [...] GH, et al. Chest 2012; 141:7S-47S Randall RA, et al. JACC 2017; 70: 252-289 Performed By: #### P T #### [place] [address] PT Coag (PPP) [Time] 10.4 s Normal 9.7-13.0 [facility] Comment on above: Performed By: #### P T #### [address] [place], [place] [address] VEIN MAPPING UPPER BILon 02-13-2020 [place] VEIN MAPPING UPPER HO * * *Final Report* * * DATE OF EXAM: Feb 13 2020 2:22PM [facility] 1085 - [place] VEIN MAPPING UPPER [...] unobstructed. There is no deep venous thrombosis. Core Mounter: PSCB Transcribe Date/Time: Feb 13 2020 4:27P Dictated by : ANALISA GRANADOS MD This examination was interpreted and the report reviewed and electronically signed by: ANALISA GRANADOS MD on Feb 13 2020 4:30PM EST Normal [facility] Basic Metabolic PanelOrdered By: Darell Sanches on 10-27-2019 Anion gap [Moles/Vol] 18 mmol/L [facility] Work Phone: [phone] Calcium [Mass/Vol] 9.2 mg/dL 8.4 - 10. 4 mg/dL [facility] Work Phone: [phone] Chloride [Moles/Vol] 93 mmol/L Low 98 - 10 7 mmol/L [facility] Work Phone: [phone] CO2 [Moles/Vol] 24 mmol/L 22 - 30 mmol/L [facility] Work Phone: [phone] Creatinine [Mass/Vol] 9.99 mg/dL High 0.52 - 1.25 mg/dL [facility] Work Phone: [phone] IF NonAfrican Citizen Of [place] 5.5 mL/min >60 [facility] Work Phone: [phone] Comment on above: Source- MDRD equatio n with creatinine calibration to IDMS(NKDEP) eGFR not recommended for drug dose adjustment GFR/1.73 sq M.predicted among blacks MDRD (S/P/Bld) [Vol rate/Area] 6.6 mL/min/{1.73_m2} >60 [facility] Work Phone: [phone] Glucose [Mass/Vol] 103 mg/dL High 70 - 100 mg/dL [facility] Work Phone: [phone] Potassium [Moles/Vol] 4.5 mmol/L 3.5 - 5.1 mmol/L [facility] Work Phone: [phone] Sodium [Moles/Vol] 135 mmol/L 135 - 145 mmol/L [facility] Work Phone: [phone] Urea nitrogen [Mass/Vol] 49 mg/dL High 7 - 20 mg/d L [facility] Work Phone: [phone] CBC Auto DifferentialOrdered By: Darell Sanches on 10-27-2019 Absolute Baso # 0.1 10*3/uL 0 - 0.2 10*3/uL [facility] Work Phone: [phone] Absolute Neut # 6.6 10*3/uL 1.8 - 7 10*3/uL [facility] Work Phone: [phone] Basophils/100 WBC (Bld) 0.7 % 0 - 2 % S [facility] Work Phone: [phone] Eosinophils (Bld) [#/Vol] 0.5 10*3/uL 0 - 0.5 10*3/uL [facility] Work Phone: [phone] Eosinophils/100 WBC (Bld) 4.9 % 1 - 6 % [facility] Work Phone: 1 Erythrocyte distribution width (RBC) [Ratio] 14.0 % 11.5 - 14.5 % [facility] Work Phone: Granulocytes/100 WBC (Bld) 62.2 % 40 - 80 % [employer] Work Phone: 1 Hematocrit (Bld) [Volume fraction] 28.3 % Low 40 - 52 % [facility] Work Phone: Hemoglobin (Bld) [Mass/Vol] 9.5 g/dL Low 13 - 18 g/dL [facility] Work Phone: [phone] 22 Lymphocytes (Bld) [#/Vol] 2.0 10*3/uL 1 - 4.3 10*3/uL [facility] Work Phone: [phone] 22 Lymphocytes/100 WBC (Bld) 18.8 % Low 20 - 40 % [facility] Work Phone: MCH (RBC) [Entitic mass] 29.1 pg 26 - 34 pg [facility] Work Phone: 22 MCHC 33.6 % 32 - 36 % [facility] Work Phone: MCV (RBC) [Entitic vol] 86.7 fL 80 - 98 fL S [facility] Work Phone: 22 Monocytes (Bld) [#/Vol] 1.4 10*3/uL High 0 - 0.8 10*3/uL [facility] Work Phone: 1 22 Monocytes/100 WBC (Bld) 13.4 % High 2 - 10 % [facility] Work Phone: Platelet mean volume (Bld) [Entitic vol] 8.2 fL 7.4 - 10.4 fL [facility] Work Phone: Platelets (Bld) [#/Vol] 259 10*3/uL 140 - 440 10*3/uL [facility] Work Phone: RBC (Bld) [#/Vol] 3.27 10*6/uL Low 4.4 - 5.9 10*6/uL [facility] Work Phone: WBC (Bld) [#/Vol] 10.6 10*3/uL 3.6 - 10.7 10*3/uL [facility] Work Phone: MAGNESIUMOrdered By: Darell Sanches on 10-27-2019 Magnesium [Mass/Vol] 2.6 mg/dL High 1.6 - 2 .3 mg/dL [facility] Work Phone: No Panel InformationOrdered By: Darell Sanches on 10-27-2019 Interpretation and review of laboratory results Abnormal [facility] Work Phone: Test Performed by [employer] [address] Work Phone: PhosphorusOrdered By: Darell Sanches on 10-27-2019 Phosphate [Mass/Vol] 9.9 mg/dL High 2.5 - 4 .5 mg/dL [facility] Work Phone: Basic Metabolic PanelOrdered By: Darell Sanches on 10-26-2019 Anion gap [Moles/Vol] 14 mmol/L [facility] Work Phone: Calcium [Mass/Vol] 9.0 mg/dL 8.4 - 10. 4 mg/dL [facility] Work Phone: Chloride [Moles/Vol] 94 mmol/L Low 98 - 10 7 mmol/L [facility] Work Phone: CO2 [Moles/Vol] 29 mmol/L 22 - 30 mmol/L [facility] Work Phone: [phone] Creatinine [Mass/Vol] 7.06 mg/dL High 0.52 - 1.25 mg/dL [facility] Work Phone: [phone] EGFR IF NonAfrican Citizen [place] 8.2 mL/min >60 [facility] Work Phone: [phone] Comment on above: Source- MDRD equatio n with creatinine calibration to IDMS(NKDEP) eGFR not recommended for drug dose adjustment GFR/1.73 sq M.predicted among blacks MDRD (S/P/Bld) [Vol rate/Area] 9.9 mL/min/{1.73_m2} >60 [facility] Work Phone: [phone] Glucose [Mass/Vol] 95 mg/dL 70 - 100 mg/dL [facility] Work Phone: [phone] Potassium [Moles/Vol] 4.2 mmol/L 3.5 - 5.1 mmol/L [facility] Work Phone: [phone] Sodium [Moles/Vol] 136 mmol/L 135 - 145 mmol/L [facility] Work Phone: [phone] Urea nitrogen [Mass/Vol] 27 mg/dL High 7 - 20 mg/d L [facility] Work Phone: [phone] CBC Auto DifferentialOrdered By: Darell Sanches on 10-26-2019 Absolute Baso # 0.1 10*3/uL 0 - 0.2 10*3/uL [employer] Work Phone: [phone] Absolute Neut # 7.1 10*3/uL High 1.8 - 7 10*3/uL [facility] Work Phone: [phone] Basophils/100 WBC (Bld) 0.8 % 0 - 2 % [facility] Work Phone: [phone] Eosinophils (Bld) [#/Vol] 0.5 10*3/uL 0 - 0.5 10*3/uL [facility] Work Phone: [phone] Eosinophils/100 WBC (Bld) 4.7 % 1 - 6 % [facility] Work Phone: [phone] Erythrocyte distribution width (RBC) [Ratio] 13.9 % 11.5 - 14.5 % [facility] Work Phone: Granulocytes/100 WBC (Bld) 63.9 % 40 - 80 % [employer] Work Phone: 1 Hematocrit (Bld) [Volume fraction] 29.2 % Low 40 - 52 % [employer] Work Phone: 1 22 Hemoglobin (Bld) [Mass/Vol] 9.9 g/dL Low 13 - 18 g/dL [facility] Work Phone: [phone] Interpretation and review of laboratory results Abnormal [employer] Work Phone: 1 22 Lymphocytes (Bld) [#/Vol] 2.0 10*3/uL 1 - 4.3 10*3/uL [facility] Work Phone: [phone] Lymphocytes/100 WBC (Bld) 17.8 % Low 20 - 40 % [employer] Work Phone: 1 MCH (RBC) [Entitic mass] 29.5 pg 26 - 34 pg [employer] Work Phone: 1 MCHC 33.9 % 32 - 36 % [employer] Work Phone: 1 MCV (RBC) [Entitic vol] 87.0 fL 80 - 98 fL S [employer] Work Phone: 1 22 Monocytes (Bld) [#/Vol] 1.4 10*3/uL High 0 - 0.8 10*3/uL [employer] Work Phone: 1) 22 Monocytes/100 WBC (Bld) 12.8 % High 2 - 10 % S [employer] Work Phone: 1 Platelet mean volume (Bld) [Entitic vol] 8.0 fL 7.4 - 10.4 fL [employer] Work Phone: 1) 22 Platelets (Bld) [#/Vol] 262 10*3/uL 140 - 440 10*3/uL [employer] Work Phone: 1 22 RBC (Bld) [#/Vol] 3.36 10*6/uL Low 4.4 - 5.9 10*6/uL [employer] Work Phone: 1 22 WBC (Bld) [#/Vol] 11.0 10*3/uL High 3.6 - 10.7 10*3/uL [employer] Work Phone: 1 Test Performed by [employer], [address] [place], [place] [address] [facility] Work Phone: 1 Culture Blood #1Ordered By: Brett Encarnacion on 10-26-2019 Blood Culture, Routine [employer] testing is not routinely performed on Gram positive bacilli. If a Listeria infection is highly suspected, contact the Microbiology laboratory [phone] Abnormal [facility] Work Phone: 1 Blood Culture, Routine Propionibacterium acnes Abnormal [facility] Work Phone: 1 Blood Culture, Routine Isolated: Contamination likely unless additional blood culture sets are found to be positive with the same organism. [facility] Work Phone: 1 Interpretation and review of laboratory results Abnormal [facility] Work Phone: 1 Test Performed by [employer], [address] [place] [id number] Specimen Source Comment:Blood [facility] Work Phone: 1 MAGNESIUMOrdered By: Darell Sanches on 10-26-2019 Magnesium [Mass/Vol] 2.2 mg/dL 1.6 - 2 .3 mg/dL [facility] Work Phone: 1 No Panel InformationOrdered By: Darell Sanches on 10-26-2019 Interpretation and review of laboratory results Abnormal [facility] Work Phone: 1 Test Performed by [employer], [address] [place], [place] [address] [facility] Work Phone: PhosphorusOrdered By: Darell Sanches on 10-26-2019 Phosphate [Mass/Vol] 7.1 mg/dL High 2.5 - 4 .5 mg/dL [facility] Work Phone: US BIOPSY RENAL RIGHT PERCOr dered By: Cindy Patel on 10-26-2019 Patient Name: GLENN SNYDER ---Ultrasound--- Exam Date/Time 10/26/2019 10:57:27 EST Exam US Biopsy Renal Right Ordering Physician MD DA, CINDY MATHEWS Accession Number [id number] CPT4 Codes 48530 (), 55961 () Reason For Exam renal failure Report ULTRASOUND GUIDED RIGHT LOWER POLE KIDNEY BIOPSY Reasons for examination: Acute renal failure. After review of prior studies, patient interview and examination, the risks, benefits, and alternatives of the biopsy procedure were discussed, informed consent was obtained. Floor Surfacer US scans of the right kidney were [...] and Time: 10/26/2019 12:05 [facility] Work Phone: [facility], [facility] Incoming Radiology Results From [facility] - 10/26/2019 12:05 PM EST Patient Name: GLENN SNYDER ---Ultrasound--- Exam Date/Time 10/26/2019 10:57:27 EST Exam US Biopsy Renal Right Ordering Physician MD DA, CINDY MATHEWS Accession Number [id number] CPT4 Codes 97186 (), 68529 () Reason For Exam renal failure Report ULTRASOUND GUIDED RIGHT LOWER POLE KIDNEY BIOPSY Reasons for examination: Acute renal failure. After review of prior studies, patient interview and examination, the risks, benefits, and alternatives of the biopsy procedure were discussed, informed consent was obtained. 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 Fluoroscopy time: Acute renal [...] [facility] Incoming Radiology Results From [facility] - 10/26/2019 3:29 PM EST Patient Name: GLENN SNYDER ---Special Procedures--- Exam Date/Time 10/26/2019 15:01:32 EST Exam XA Special Angiography Procedure Ordering Physician MD KEILA, AZIZ Accession Number [id number] Reason For Exam non tunneled to tunneled cath Report FLUOROSCOPIC AND ULTRASOUND-GUIDED TUNNELED DIALYSIS CATHETER PLACEMENT REMOVAL OF RIGHT INTERNAL JUGULAR TEMPORARY HEMODIALYSIS CATHETER CLINICAL HISTORY: Need for joint terminal attack controller central venous access Fluoroscopy time: Acute renal [...] RICHARD Transcribed Date and Time: 10/26/2019 3:28 [facility] Work Phone: [phone] Basic Metabolic PanelOrdered By: Darell Sanches on 10-25-2019 Anion gap [Moles/Vol] 15 mmol/L [facility] Work Phone: Calcium [Mass/Vol] 8.7 mg/dL 8.4 - 10. 4 mg/dL [facility] Work Phone: Chloride [Moles/Vol] 95 mmol/L Low 98 - 10 7 mmol/L [facility] Work Phone: CO2 [Moles/Vol] 26 mmol/L 22 - 30 mmol/L [facility] Work Phone: [phone] Creatinine [Mass/Vol] 9.71 mg/dL High 0.52 - 1.25 mg/dL [facility] Work Phone: EGFR IF NonAfrican Citizen Of [place] 5.7 mL/min >60 [facility] Work Phone: [phone] Comment on above: Source- MDRD equatio n with creatinine calibration to IDMS(NKDEP) eGFR not recommended for drug dose adjustment GFR/1.73 sq M.predicted among blacks MDRD (S/P/Bld) [Vol rate/Area] 6.9 mL/min/{1.73_m2} >60 [facility] Work Phone: Glucose [Mass/Vol] 96 mg/dL 70 - 100 mg/dL [facility] Work Phone: 1 Potassium [Moles/Vol] 4.3 mmol/L 3.5 - 5.1 mmol/L [facility] Work Phone: 1 Sodium [Moles/Vol] 135 mmol/L 135 - 145 mmol/L [facility] Work Phone: 1 Urea nitrogen [Mass/Vol] 39 mg/dL High 7 - 20 mg/d L [employer] Work Phone: 1 CBC Auto DifferentialOrdered By: Darell Sanches on 10-25-2019 Absolute Baso # 0.1 10*3/uL 0 - 0.2 10*3/uL [facility] Work Phone: 1 Absolute Neut # 6.7 10*3/uL 1.8 - 7 10*3/uL [employer] Work Phone: 1 Basophils/100 WBC (Bld) 0.9 % 0 - 2 % [facility] Work Phone: Eosinophils (Bld) [#/Vol] 0.5 10*3/uL 0 - 0.5 10*3/uL [employer] Work Phone: 1 Eosinophils/100 WBC (Bld) 4.5 % 1 - 6 % [employer] Work Phone: 1 Erythrocyte distribution width (RBC) [Ratio] 13.8 % 11.5 - 14.5 % [employer] Work Phone: 1 Granulocytes/100 WBC (Bld) 60.1 % 40 - 80 % [facility] Work Phone: Hematocrit (Bld) [Volume fraction] 28.3 % Low 40 - 52 % [employer] Work Phone: 1 Hemoglobin (Bld) [Mass/Vol] 9.7 g/dL Low 13 - 18 g/dL [facility] Work Phone: [phone] Interpretation and review of laboratory results Abnormal [employer] Work Phone: 1 Lymphocytes (Bld) [#/Vol] 2.6 10*3/uL 1 - 4.3 10*3/uL [facility] Work Phone: 1 22 Lymphocytes/100 WBC (Bld) 22.9 % 20 - 40 % [employer] Work Phone: 1 MCH (RBC) [Entitic mass] 30.0 pg 26 - 34 pg [facility] Work Phone: 1 MCHC 34.3 % 32 - 36 % [employer] Work Phone: 1 MCV (RBC) [Entitic vol] 87.3 fL 80 - 98 fL S [facility] Work Phone: Monocytes (Bld) [#/Vol] 1.3 10*3/uL High 0 - 0.8 10*3/uL [facility] Work Phone: 1 Monocytes/100 WBC (Bld) 11.6 % High 2 - 10 % S [facility] Work Phone: Platelet mean volume (Bld) [Entitic vol] 8.1 fL 7.4 - 10.4 fL [employer] Work Phone: Platelets (Bld) [#/Vol] 252 10*3/uL 140 - 440 10*3/uL [employer] Work Phone: RBC (Bld) [#/Vol] 3.24 10*6/uL Low 4.4 - 5.9 10*6/uL [employer] Work Phone: WBC (Bld) [#/Vol] 11.2 10*3/uL High 3.6 - 10.7 10*3/uL [employer] Work Phone: Test Performed by [employer], [address] [place] [address] [address] [place] [address] [employer] Work Phone: MAGNESIUMOrdered By: Darell Sanches on 10-25-2019 Magnesium [Mass/Vol] 2.2 mg/dL 1.6 - 2 .3 mg/dL [employer] Work Phone: No Panel InformationOrdered By: Darell Sanches on 10-25-2019 Interpretation and review of laboratory results Abnormal [employer] Work Phone: Test Performed by [employer], [address] [place] [address] [address] [place] [address] [employer] Work Phone: [phone] PhosphorusOrdered By: Darell Sanches on 10-25-2019 Phosphate [Mass/Vol] 9.3 mg/dL High 2.5 - 4 .5 mg/dL [facility] Work Phone: [phone] APTTOrdered By: Cindy Patel on 10-24-2019 aPTT Coag ([facility]) [Time] 28.5 s 20 - 30.5 s S [facility] Work Phone: [phone] Comment on above: NOTE: The therapeuti c time for Heparin anticoagulation, based on Xa activity inhibition, is an APTT of 46-80 seconds. Basic Metabolic PanelOrdered By: Darell Sanches on 10-24-2019 Anion gap [Moles/Vol] 10 mmol/L [facility] Work Phone: [phone] Calcium [Mass/Vol] 8.6 mg/dL 8.4 - 10. 4 mg/dL [facility] Work Phone: 1 Chloride [Moles/Vol] 94 mmol/L Low 98 - 10 7 mmol/L [facility] Work Phone: CO2 [Moles/Vol] 31 mmol/L High 22 - 30 mmol/L [facility] Work Phone: [phone] Creatinine [Mass/Vol] 7.11 mg/dL High 0.52 - 1.25 mg/dL [facility] Work Phone: [phone] EGFR IF NonAfrican Citizen Of [place] 8.1 mL/min >60 [facility] Work Phone: [phone] Comment on above: Source- MDRD equatio n with creatinine calibration to IDMS(NKDEP) eGFR not recommended for drug dose adjustment GFR/1.73 sq M.predicted among blacks MDRD (S/P/Bld) [Vol rate/Area] 9.8 mL/min/{1.73_m2} >60 [facility] Work Phone: [phone] Glucose [Mass/Vol] 93 mg/dL 70 - 100 mg/dL [facility] Work Phone: [phone] Potassium [Moles/Vol] 4.1 mmol/L 3.5 - 5.1 mmol/L [facility] Work Phone: [phone] Sodium [Moles/Vol] 135 mmol/L 135 - 145 mmol/L [facility] Work Phone: [phone] Urea nitrogen [Mass/Vol] 28 mg/dL High 7 - 20 mg/d L [facility] Work Phone: [phone] CBC Auto DifferentialOrdered By: Daerll Sanches on 10-24-2019 Absolute Baso # 0.1 10*3/uL 0 - 0.2 10*3/uL [facility] Work Phone: Absolute Neut # 6.2 10*3/uL 1.8 - 7 10*3/uL [facility] Work Phone: 1 22 Basophils/100 WBC (Bld) 0.7 % 0 - 2 % [facility] Work Phone: Eosinophils (Bld) [#/Vol] 0.4 10*3/uL 0 - 0.5 10*3/uL [facility] Work Phone: Eosinophils/100 WBC (Bld) 3.7 % 1 - 6 % [facility] Work Phone: Erythrocyte distribution width (RBC) [Ratio] 14.0 % 11.5 - 14.5 % [facility] Work Phone: Granulocytes/100 WBC (Bld) 63.8 % 40 - 80 % [employer] Work Phone: Hematocrit (Bld) [Volume fraction] 27.0 % Low 40 - 52 % [employer] Work Phone: Hemoglobin (Bld) [Mass/Vol] 9.2 g/dL Low 13 - 18 g/dL [facility] Work Phone: Interpretation and review of laboratory results Abnormal [employer] Work Phone: 1 Lymphocytes (Bld) [#/Vol] 1.8 10*3/uL 1 - 4.3 10*3/uL [facility] Work Phone: Lymphocytes/100 WBC (Bld) 18.8 % Low 20 - 40 % [facility] Work Phone: [phone] MCH (RBC) [Entitic mass] 29.6 pg 26 - 34 pg [facility] Work Phone: MCHC 34.1 % 32 - 36 % [facility] Work Phone: 1 MCV (RBC) [Entitic vol] 86.9 fL 80 - 98 fL S [employer] Work Phone: Monocytes (Bld) [#/Vol] 1.3 10*3/uL High 0 - 0.8 10*3/uL [employer] Work Phone: 1 Monocytes/100 WBC (Bld) 13.0 % High 2 - 10 % [facility] Work Phone: Platelet mean volume (Bld) [Entitic vol] 8.4 fL 7.4 - 10.4 fL [employer] Work Phone: Platelets (Bld) [#/Vol] 245 10*3/uL 140 - 440 10*3/uL [facility] Work Phone: RBC (Bld) [#/Vol] 3.10 10*6/uL Low 4.4 - 5.9 10*6/uL [facility] Work Phone: 1 WBC (Bld) [#/Vol] 9.7 10*3/uL 3.6 - 10.7 10*3/uL [employer] Work Phone: 1 Culture Blood #1Ordered By: Brett Encarnacion on 10-24-2019 Blood Culture, Routine No growth at 5 days. [facility] Work Phone: Test Performed by [employer], [address] [place] [address] Specimen Source Comment:Blood [facility] Work Phone: Glomerular Basement Membrane (GBM) Antibody IgGOrdered By: Randolph Liz on 10-24-2019 GBM Ab, IgG (IFA) Negative Negative NA [facility] Work Phone: Comment on above: INTERPRETIVE INFORMA [...] biopsy. Test developed and characteristics determined by [employer]. See Compliance Statement D: Vimessa.Vericant/CS Performed by [employer], [address] [facility] [place] [address] [email or web address], Malvin Slade MD, Lab. Director MAGNESIUMOrdered By: Darell Sanches on 10-24-2019 Magnesium [Mass/Vol] 2.1 mg/dL 1.6 - 2 .3 mg/dL [facility] Work Phone: No Panel InformationOrdered By: Darell Sanches on 10-24-2019 Interpretation and review of laboratory results Abnormal [facility] Work Phone: Test Performed by [facility], [address] [place], [place] [id number] [place] [address] Work Phone: Test Performed by [facility] CenterOn[facility], [address] [place], [place] [id number] [place] [address] Work Phone: PhosphorusOrdered By: Darell Sanches on 10-24-2019 Phosphate [Mass/Vol] 5.8 mg/dL High 2.5 - 4 .5 mg/dL [facility] Work Phone: Protime-INROrdered By: Darren Patel on 10-24-2019 INR Coag (PPP) [Relative time] 1.1 {INR} [facility] Work Phone: Comment on above: Recommended Anticoag [...] [Time] 11.4 s 9 - 12 s [facility] Work Phone: Comment on above: . Basic Metabolic PanelOrdered By: Darell Sanches on 10-23-2019 Anion gap [Moles/Vol] 17 mmol/L [facility] Work Phone: Calcium [Mass/Vol] 8.6 mg/dL 8.4 - 10. 4 mg/dL [facility] Work Phone: [phone] Chloride [Moles/Vol] 94 mmol/L Low 98 - 10 7 mmol/L [facility] Work Phone: [phone] CO2 [Moles/Vol] 24 mmol/L 22 - 30 mmol/L [facility] Work Phone: [phone] Creatinine [Mass/Vol] 11.03 mg/dL High 0.52 - 1.25 mg/dL [facility] Work Phone: [phone] EGFR IF NonAfrican Citizen Of [place] 4.9 mL/min >60 [facility] Work Phone: [phone] Comment on above: Source- MDRD equatio n with creatinine calibration to IDMS(NKDEP) eGFR not recommended for drug dose adjustment GFR/1.73 sq M.predicted among blacks MDRD (S/P/Bld) [Vol rate/Area] 5.9 mL/min/{1.73_m2} >60 [facility] Work Phone: [phone] Glucose [Mass/Vol] 97 mg/dL 70 - 100 mg/dL [facility] Work Phone: [phone] Potassium [Moles/Vol] 3.9 mmol/L 3.5 - 5.1 mmol/L [facility] Work Phone: [phone] Sodium [Moles/Vol] 135 mmol/L 135 - 145 mmol/L [facility] Work Phone: [phone] Urea nitrogen [Mass/Vol] 61 mg/dL High 7 - 20 mg/d L [facility] Work Phone: [phone] CBC Auto DifferentialOrdered By: Darell Sanches on 10-23-2019 Absolute Baso # 0.1 10*3/uL 0 - 0.2 10*3/uL [facility] Work Phone: [phone] Absolute Neut # 7.1 10*3/uL High 1.8 - 7 10*3/uL [facility] Work Phone: Basophils/100 WBC (Bld) 1.0 % 0 - 2 % [facility] Work Phone: [phone] Eosinophils (Bld) [#/Vol] 0.5 10*3/uL 0 - 0.5 10*3/uL [facility] Work Phone: [phone] Eosinophils/100 WBC (Bld) 4.7 % 1 - 6 % [facility] Work Phone: 1 22 Erythrocyte distribution width (RBC) [Ratio] 13.8 % 11.5 - 14.5 % [facility] Work Phone: 1 22 Granulocytes/100 WBC (Bld) 65.3 % 40 - 80 % [employer] Work Phone: Hematocrit (Bld) [Volume fraction] 27.6 % Low 40 - 52 % [employer] Work Phone: 1 Hemoglobin (Bld) [Mass/Vol] 9.5 g/dL Low 13 - 18 g/dL [facility] Work Phone: [phone] Interpretation and review of laboratory results Abnormal [employer] Work Phone: Lymphocytes (Bld) [#/Vol] 1.9 10*3/uL 1 - 4.3 10*3/uL [facility] Work Phone: 1 22 Lymphocytes/100 WBC (Bld) 17.3 % Low 20 - 40 % [facility] Work Phone: MCH (RBC) [Entitic mass] 29.7 pg 26 - 34 pg [facility] Work Phone: 22 MCHC 34.3 % 32 - 36 % [facility] Work Phone: MCV (RBC) [Entitic vol] 86.6 fL 80 - 98 fL S [employer] Work Phone: 22 Monocytes (Bld) [#/Vol] 1.3 10*3/uL High 0 - 0.8 10*3/uL [facility] Work Phone: 22 Monocytes/100 WBC (Bld) 11.7 % High 2 - 10 % S [employer] Work Phone: Platelet mean volume (Bld) [Entitic vol] 7.7 fL 7.4 - 10.4 fL [facility] Work Phone: 22 Platelets (Bld) [#/Vol] 248 10*3/uL 140 - 440 10*3/uL [facility] Work Phone: RBC (Bld) [#/Vol] 3.18 10*6/uL Low 4.4 - 5.9 10*6/uL [facility] Work Phone: WBC (Bld) [#/Vol] 10.8 10*3/uL High 3.6 - 10.7 10*3/uL [facility] Work Phone: Test Performed by [facility] Work Phone: MAGNESIUMOrdered By: Darell Sanches on 10-23-2019 Magnesium [Mass/Vol] 2.1 mg/dL 1.6 - 2 .3 mg/dL [facility] Work Phone: No Panel InformationOrdered By: Darell Sanches on 10-23-2019 Interpretation and review of laboratory results Abnormal [facility] Work Phone: Test Performed by [email or web address] Work Phone: PhosphorusOrdered By: Darell Sanches on 10-23-2019 Phosphate [Mass/Vol] 9.5 mg/dL High 2.5 - 4 .5 mg/dL [facility] Work Phone: Basic Metabolic PanelOrdered By: Delon Jessica on 10-22-2019 Anion gap [Moles/Vol] 14 mmol/L [facility] Work Phone: Calcium [Mass/Vol] 8.9 mg/dL 8.4 - 10. 4 mg/dL [facility] Work Phone: Chloride [Moles/Vol] 95 mmol/L Low 98 - 10 7 mmol/L [facility] Work Phone: CO2 [Moles/Vol] 28 mmol/L 22 - 30 mmol/L [facility] Work Phone: Creatinine [Mass/Vol] 8.75 mg/dL High 0.52 - 1.25 mg/dL [facility] Work Phone: EGFR IF NonAfrican Citizen Of [place] 6.4 mL/min >60 [facility] Work Phone: Comment on above: Source- MDRD equatio n with creatinine calibration to IDMS(NKDEP) eGFR not recommended for drug dose adjustment GFR/1.73 sq M.predicted among blacks MDRD (S/P/Bld) [Vol rate/Area] 7.7 mL/min/{1.73_m2} >60 [facility] Work Phone: 1 Glucose [Mass/Vol] 94 mg/dL 70 - 100 mg/dL [facility] Work Phone: Potassium [Moles/Vol] 4.3 mmol/L 3.5 - 5.1 mmol/L [facility] Work Phone: Sodium [Moles/Vol] 137 mmol/L 135 - 145 mmol/L [facility] Work Phone: Urea nitrogen [Mass/Vol] 53 mg/dL High 7 - 20 mg/d L [facility] Work Phone: CBC Auto DifferentialOrdered By: Delon Jessica on 10-22-2019 Absolute Baso # 0.1 10*3/uL 0 - 0.2 10*3/uL [facility] Work Phone: [phone] Absolute Neut # 5.9 10*3/uL 1.8 - 7 10*3/uL [facility] Work Phone: 22 Basophils/100 WBC (Bld) 0.9 % 0 - 2 % [facility] Work Phone: Eosinophils (Bld) [#/Vol] 0.3 10*3/uL 0 - 0.5 10*3/uL [facility] Work Phone: 22 Eosinophils/100 WBC (Bld) 3.0 % 1 - 6 % [facility] Work Phone: Erythrocyte distribution width (RBC) [Ratio] 14.2 % 11.5 - 14.5 % [employer] Work Phone: [phone] Granulocytes/100 WBC (Bld) 63.0 % 40 - 80 % [facility] Work Phone: Hematocrit (Bld) [Volume fraction] 27.7 % Low 40 - 52 % [facility] Work Phone: Hemoglobin (Bld) [Mass/Vol] 9.4 g/dL Low 13 - 18 g/dL [employer] Work Phone: 1 Interpretation and review of laboratory results Abnormal [employer] Work Phone: 1 Lymphocytes (Bld) [#/Vol] 1.6 10*3/uL 1 - 4.3 10*3/uL [employer] Work Phone: 1 Lymphocytes/100 WBC (Bld) 17.2 % Low 20 - 40 % [employer] Work Phone: 1 MCH (RBC) [Entitic mass] 29.3 pg 26 - 34 pg [facility] Work Phone: 1 MCHC 33.8 % 32 - 36 % [employer] Work Phone: MCV (RBC) [Entitic vol] 86.7 fL 80 - 98 fL S [facility] Work Phone: Monocytes (Bld) [#/Vol] 1.5 10*3/uL High 0 - 0.8 10*3/uL [employer] Work Phone: 1 Monocytes/100 WBC (Bld) 15.9 % High 2 - 10 % S [facility] Work Phone: Platelet mean volume (Bld) [Entitic vol] 8.0 fL 7.4 - 10.4 fL [employer] Work Phone: Platelets (Bld) [#/Vol] 264 10*3/uL 140 - 440 10*3/uL [employer] Work Phone: RBC (Bld) [#/Vol] 3.20 10*6/uL Low 4.4 - 5.9 10*6/uL [employer] Work Phone: 1 WBC (Bld) [#/Vol] 9.3 10*3/uL 3.6 - 10.7 10*3/uL [employer] Work Phone: Test Performed by [employer], [address] [place] [address] [employer] Work Phone: Calcium, IonizedOrdered By: Delon Jessica on 10-22-2019 Interpretation and review of laboratory results Abnormal [facility] Work Phone: Ionized Ca 4.20 mg/dL Low 4.3 - 5.2 mg/dL [facility] Work Phone: pH (Bld) 7.43 [pH] [facility] Work Phone: Test Performed by [employer], [address] [place], [place] [id number] [place], [place] [address]A Work Phone: FOLATEOrdered By: Earlene deluna on 10-22-2019 Folate 9.2 ng/mL 2.8 - 20 ng/mL [facility] Work Phone: Glomerular Basement Membrane (GBM) Antibody IgGOrdered By: Jeana Pedraza on 10-22-2019 GBM Ab, IgG (IFA) Negative Negative NA [facility] Work Phone: Comment on above: INTERPRETIVE INFORMA [...] biopsy. Test developed and characteristics determined by [employer]. See Compliance Statement D: [employer]/ Performed by [employer], [address] [place] [id number] [email or web address], Malvin Slade MD, Lab. Director Iron and TIBCOrdered By: Al Irving on 10-22-2019 Interpretation and review of laboratory results Abnormal [facility] Work Phone: Iron [Mass/Vol] 64 ug/dL 49 - 181 ug/dL [facility] Work Phone: Sat 27 % 15 - 50 % [facility] Work Phone: TIBC 234 ug/dL Low 261 - 497 ug/dL [facility] Work Phone: Test Performed by [employer], [address] [place], [place] [address] [facility] Work Phone: MagnesiumOrdered By: Delon Jessica on 10-22-2019 Magnesium [Mass/Vol] 2.0 mg/dL 1.6 - 2 .3 mg/dL [facility] Work Phone: 1 No Panel InformationOrdered By: Earlene Irving on 10-22-2019 Test Performed by [facility] [employer] [facility], [address] [place], [place] [address]A Work Phone: No Panel InformationOrdered By: Delon Jessica on 10-22-2019 Interpretation and review of laboratory results Abnormal [facility] Work Phone: Test Performed by [facility] [employer] [facility], [address] [place], [place] [address]A Work Phone: PhosphorusOrdered By: Patrick Jessica on 10-22-2019 Phosphate [Mass/Vol] 8.7 mg/dL High 2.5 - 4 .5 mg/dL [facility] Work Phone: T4, FREEOrdered By: Earlene toure on 10-22-2019 Free T4 [Mass/Vol] 1.16 ng/dL 0.78 - 2. 19 ng/dL [facility] Work Phone: Test Performed by [facility] [employer] [facility], [address] [place], [place] [address]A Work Phone: TSH without ReflexOrdered By : Earlene Irving on 10-22-2019 TSH 0.836 u[IU]/mL 0.465 - 4.68 u[IU]/mL [facility] Work Phone: Test Performed by [facility], [address] [place], [place] [address]A Work Phone: VL RENAL ARTERIAL DUPLEX COM PLETEOrdered By: Brett Encarnacion on 10-22-2019 [facility] Renal Artery Duplex Ordering Physician: Brett Encarnacion Articulation Officer: Laura Walsh Interpreting Physician: Luciano Shannon Location: [facility] Indications: Hypertension. Smoking history. Acute Kidney Injury [...] supine position. Images were obtained using a [employer] E9 vascular ultrasound machine. The abdominal aorta, [...] + Kidney le (more content not included)... [employer] Work Phone: Mike, [employer] Incoming Cardiology Results From Tia/Mabel - 10/22/2019 3:01 PM EST [facility] Renal Artery Duplex Ordering Physician: Brett Encarnacion Articulation Officer: Laura Walsh Interpreting Physician: Luciano Shannon Location: [facility] Indications: Hypertension. Smoking history. Acute Kidney Injury [...] supine position. Images were obtained using a [employer] E9 vascular ultrasound machine. The abdominal aorta, [...] electronically signed by Luciano Shannon 10/22/2019 15:01 [facility] Work Phone: [phone] Vitamin [id number] By: Akin Irving on 10-22-2019 Cobalamin (Vitamin B12) [Mass/Vol] 959 pg/mL High 239 - 931 pg/mL [facility] Work Phone: [phone] Interpretation and review of laboratory results Abnormal [facility] Work Phone: [phone] Basic Metabolic PanelOrdered By: Delon Jessica on 10-21-2019 Anion gap [Moles/Vol] 16 mmol/L [facility] Work Phone: [phone] Calcium [Mass/Vol] 8.7 mg/dL 8.4 - 10. 4 mg/dL [facility] Work Phone: [phone] Chloride [Moles/Vol] 94 mmol/L Low 98 - 10 7 mmol/L [facility] Work Phone: [phone] CO2 [Moles/Vol] 25 mmol/L 22 - 30 mmol/L [facility] Work Phone: [phone] Creatinine [Mass/Vol] 11.16 mg/dL High 0.52 - 1.25 mg/dL [facility] Work Phone: [phone] EGFR IF NonAfrican Citizen Of [place] 4.8 mL/min >60 [facility] Work Phone: [phone] Comment on above: Source- MDRD equatio n with creatinine calibration to IDMS(NKDEP) eGFR not recommended for drug dose adjustment GFR/1.73 sq M.predicted among blacks MDRD (S/P/Bld) [Vol rate/Area] 5.8 mL/min/{1.73_m2} >60 [facility] Work Phone: [phone] Glucose [Mass/Vol] 103 mg/dL High 70 - 100 mg/dL [facility] Work Phone: [phone] Potassium [Moles/Vol] 4.9 mmol/L 3.5 - 5.1 mmol/L [facility] Work Phone: [phone] Sodium [Moles/Vol] 135 mmol/L 135 - 145 mmol/L [facility] Work Phone: [phone] Urea nitrogen [Mass/Vol] 83 mg/dL High 7 - 20 mg/d L [facility] Work Phone: [phone] CBC Auto DifferentialOrdered By: Delon Jessica on 10-21-2019 Absolute Baso # 0.1 10*3/uL 0 - 0.2 10*3/uL [facility] Work Phone: [phone] Absolute Neut # 6.4 10*3/uL 1.8 - 7 10*3/uL [facility] Work Phone: [phone] Basophils/100 WBC (Bld) 0.9 % 0 - 2 % S [facility] Work Phone: Eosinophils (Bld) [#/Vol] 0.2 10*3/uL 0 - 0.5 10*3/uL [facility] Work Phone: [phone] Eosinophils/100 WBC (Bld) 2.5 % 1 - 6 % [facility] Work Phone: Erythrocyte distribution width (RBC) [Ratio] 14.8 % High 11.5 - 14.5 % [employer] Work Phone: Granulocytes/100 WBC (Bld) 64.7 % 40 - 80 % [employer] Work Phone: Hematocrit (Bld) [Volume fraction] 27.6 % Low 40 - 52 % [employer] Work Phone: [phone] Hemoglobin (Bld) [Mass/Vol] 9.7 g/dL Low 13 - 18 g/dL [employer] Work Phone: Comment on above: Post Transfusion Interpretation and review of laboratory results Abnormal [employer] Work Phone: 1 Lymphocytes (Bld) [#/Vol] 1.8 10*3/uL 1 - 4.3 10*3/uL [employer] Work Phone: 22 Lymphocytes/100 WBC (Bld) 18.5 % Low 20 - 40 % [employer] Work Phone: [phone] MCH (RBC) [Entitic mass] 30.0 pg 26 - 34 pg [facility] Work Phone: 22 MCHC 35.3 % 32 - 36 % [facility] Work Phone: [phone] MCV (RBC) [Entitic vol] 84.8 fL 80 - 98 fL [facility] Work Phone: 1 Monocytes (Bld) [#/Vol] 1.3 10*3/uL High 0 - 0.8 10*3/uL [employer] Work Phone: 1 Monocytes/100 WBC (Bld) 13.4 % High 2 - 10 % [facility] Work Phone: 1 Platelet mean volume (Bld) [Entitic vol] 7.8 fL 7.4 - 10.4 fL [employer] Work Phone: 1 Platelets (Bld) [#/Vol] 299 10*3/uL 140 - 440 10*3/uL [employer] Work Phone: RBC (Bld) [#/Vol] 3.25 10*6/uL Low 4.4 - 5.9 10*6/uL [employer] Work Phone: WBC (Bld) [#/Vol] 9.8 10*3/uL 3.6 - 10.7 10*3/uL [employer] Work Phone: 1 Test Performed [place] [address] [employer] Work Phone: Calcium, IonizedOrdered By: Delon Jessica on 10-21-2019 Interpretation and review of laboratory results Abnormal [facility] Work Phone: Ionized Ca 4.10 mg/dL Low 4.3 - 5.2 mg/dL [facility] Work Phone: pH (Bld) 7.41 [pH] [employer] Work Phone: Test Performed by [facility] Work Phone: MagnesiumOrdered By: Delon Jessica on 10-21-2019 Magnesium [Mass/Vol] 1.9 mg/dL 1.6 - 2 .3 mg/dL [employer] Work Phone: 1 No Panel InformationOrdered By: Delon Jessica on 10-21-2019 Interpretation and review of laboratory results Abnormal [employer] Work Phone: Test Performed by [facility], [address] [place] [address] [employer] Work Phone: [phone] PERIPHERAL BLOOD SMEAR, PATH REVIEWOrdered By: Jeana Pedraza on 10-21-2019 Peripheral Smear see below [employer] Work Phone: Comment on above: See report under Fredy gical Pathology. Test Performed by [facility], [address], [place], [place] [address] [employer] Work Phone: PhosphorusOrdered By: Patrick Jessica on 10-21-2019 Phosphate [Mass/Vol] 9.2 mg/dL High 2.5 - 4 .5 mg/dL [employer] Work Phone: US RETROPERITONEAL COMPLETEO rdered By: Randolph Liz on 10-21-2019 Patient Name: GLENN SNYDER ---Ultrasound--- Exam Date/Time 10/21/2019 15:32:01 EST Exam US Retroperitoneal Complete Ordering Physician 59RANDOLPH JEREZ Accession Number [id number] CPT4 Codes 52963 () Reason For Exam blossom Report US [...] [facility] Incoming Radiology Results From [facility] - 10/21/2019 7:32 PM EST Patient Name: GLENN SNYDER ---Ultrasound--- Exam Date/Time 10/21/2019 15:32:01 EST Exam US Retroperitoneal Complete Ordering Physician RANDOLPH PALAFOX Accession Number [id number] CPT4 Codes 86251 () Reason For Exam blossom Report US [...] KEVIN Transcribed Date and Time: 10/21/2019 7:31 [facility] Work Phone: XR ABDOMEN (KUB) (SINGLE AP VIEW)Ordered By: Brett Encarnacion on 10-21-2019 Patient Name: GLENN SNYDER ---Diagnostic Radiology--- Exam Date/Time 10/21/2019 18:02:19 EST Exam CR Abdomen AP Ordering Physician MD ENCARNACION MATTHEW Accession Number [id number] CPT4 Codes 54527 () Reason For Exam vomiting Report ABDOMEN [...] WENDELL Transcribed Date and Time: 10/21/2019 6:30 [facility] Work Phone: Mike, [facility] Incoming Radiology Results From [facility] - 10/21/2019 6:30 PM EST Patient Name: GLENN SNYDER ---Diagnostic Radiology--- Exam Date/Time 10/21/2019 18:02:19 EST Exam CR Abdomen AP Ordering Physician MD ENCARNACION MATTHEW Accession Number [id number] CPT4 Codes 54771 () Reason For Exam vomiting Report ABDOMEN [...] WENDELL Transcribed Date and Time: 10/21/2019 6:30 [facility] Work Phone: ANAOrdered By: Jeana Pedraza on 10-20-2019 CIARAN TITER <1:40 <1:40 {titer} [employer] Work Phone: [phone] Test Performed by [facility] [address] [facility] Work Phone: [phone] Anti-Neutrophilic Cytoplasmi c AntibodyOrdered By: Jeana Pedraza on 10-20-2019 C-ANCA Not detected Not-Detected {titer} [employer] Work Phone: [phone] p-ANCA Titer Not detected Not-Detected {titer} [facility] Work Phone: Test Performed by [facility], [address] [place] [address] [facility] Work Phone: [phone] Basic Metabolic PanelOrdered By: Brett Encarnacion on 10-20-2019 Anion gap [Moles/Vol] 15 mmol/L [facility] Work Phone: 1 Calcium [Mass/Vol] 8.4 mg/dL 8.4 - 10. 4 mg/dL [facility] Work Phone: 1 Chloride [Moles/Vol] 94 mmol/L Low 98 - 10 7 mmol/L [facility] Work Phone: CO2 [Moles/Vol] 26 mmol/L 22 - 30 mmol/L [facility] Work Phone: Creatinine [Mass/Vol] 9.4 mg/dL High 0.52 - 1.25 mg/dL [facility] Work Phone: EGFR IF NonAfrican Citizen Of [place] 5.9 mL/min >60 [facility] Work Phone: Comment on above: Source- MDRD equatio n with creatinine calibration to IDMS(NKDEP) eGFR not recommended for drug dose adjustment GFR/1.73 sq M.predicted among blacks MDRD (S/P/Bld) [Vol rate/Area] 7.1 mL/min/{1.73_m2} >60 [facility] Work Phone: 1 Glucose [Mass/Vol] 110 mg/dL High 70 - 100 mg/dL [facility] Work Phone: Interpretation and review of laboratory results Abnormal [facility] Work Phone: Potassium [Moles/Vol] 4.0 mmol/L 3.5 - 5.1 mmol/L [facility] Work Phone: 1 Sodium [Moles/Vol] 135 mmol/L 135 - 145 mmol/L [facility] Work Phone: Urea nitrogen [Mass/Vol] 76 mg/dL High 7 - 20 mg/d L [facility] Work Phone: 1 Test Performed by [employer], [address] [facility] [place], [place] [address] [facility] Work Phone: [phone] Metabolic PanelOrdered By: Delon Jessica on 10-20-2019 Anion gap [Moles/Vol] 18 mmol/L [facility] Work Phone: [phone] Calcium [Mass/Vol] 7.9 mg/dL Low 8.4 - 10. 4 mg/dL [facility] Work Phone: Chloride [Moles/Vol] 95 mmol/L Low 98 - 10 7 mmol/L [facility] Work Phone: CO2 [Moles/Vol] 24 mmol/L 22 - 30 mmol/L [facility] Work Phone: [phone] Creatinine [Mass/Vol] 13.53 mg/dL High 0.52 - 1.25 mg/dL [facility] Work Phone: [phone] IF NonAfrican Citizen Of [place] 3.9 mL/min >60 [facility] Work Phone: [phone] Comment on above: Source- MDRD equatio n with creatinine calibration to IDMS(NKDEP) eGFR not recommended for drug dose adjustment GFR/1.73 sq M.predicted among blacks MDRD (S/P/Bld) [Vol rate/Area] 4.7 mL/min/{1.73_m2} >60 [facility] Work Phone: [phone] Glucose [Mass/Vol] 102 mg/dL High 70 - 100 mg/dL [facility] Work Phone: [phone] Interpretation and review of laboratory results Abnormal [facility] Work Phone: [phone] Potassium [Moles/Vol] 4.7 mmol/L 3.5 - 5.1 mmol/L [facility] Work Phone: [phone] Sodium [Moles/Vol] 136 mmol/L 135 - 145 mmol/L [facility] Work Phone: [phone] Urea nitrogen [Mass/Vol] 123 mg/dL High 7 - 20 mg/d L [facility] Work Phone: [phone] Test Performed by [employer], [address] [place] [address] [facility] Work Phone: [phone] CBC Auto DifferentialOrdered By: Delon Jessica on 10-20-2019 Absolute Baso # 0.0 10*3/uL 0 - 0.2 10*3/uL [employer] Work Phone: [phone] Absolute Neut # 6.2 10*3/uL 1.8 - 7 10*3/uL [facility] Work Phone: [phone] Basophils/100 WBC (Bld) 0.4 % 0 - 2 % [facility] Work Phone: [phone] Eosinophils (Bld) [#/Vol] 0.1 10*3/uL 0 - 0.5 10*3/uL [employer] Work Phone: [phone] Eosinophils/100 WBC (Bld) 1.1 % 1 - 6 % [employer] Work Phone: [phone] Erythrocyte distribution width (RBC) [Ratio] 13.4 % 11.5 - 14.5 % [employer] Work Phone: [phone] Granulocytes/100 WBC (Bld) 69.5 % 40 - 80 % [employer] Work Phone: [phone] Hematocrit (Bld) [Volume fraction] 19.3 % Low 40 - 52 % [employer] Work Phone: [phone] Hemoglobin (Bld) [Mass/Vol] 6.6 g/dL Critically low 13 - 18 g/dL [facility] Work Phone: [phone] Interpretation and review of laboratory results Abnormal [facility] Work Phone: [phone] Lymphocytes (Bld) [#/Vol] 1.6 10*3/uL 1 - 4.3 10*3/uL [employer] Work Phone: [phone] Lymphocytes/100 WBC (Bld) 18.3 % Low 20 - 40 % [employer] Work Phone: [phone] MCH (RBC) [Entitic mass] 29.4 pg 26 - 34 pg [employer] Work Phone: [phone] MCHC 34.1 % 32 - 36 % [facility] Work Phone: [phone] MCV (RBC) [Entitic vol] 86.2 fL 80 - 98 fL [facility] Work Phone: [phone] Monocytes (Bld) [#/Vol] 1.0 10*3/uL High 0 - 0.8 10*3/uL [facility] Work Phone: 1 Monocytes/100 WBC (Bld) 10.7 % High 2 - 10 % [facility] Work Phone: Platelet mean volume (Bld) [Entitic vol] 7.4 fL 7.4 - 10.4 fL [facility] Work Phone: Platelets (Bld) [#/Vol] 267 10*3/uL 140 - 440 10*3/uL [facility] Work Phone: RBC (Bld) [#/Vol] 2.24 10*6/uL Low 4.4 - 5.9 10*6/uL [employer] Work Phone: WBC (Bld) [#/Vol] 9.0 10*3/uL 3.6 - 10.7 10*3/uL [facility] Work Phone: Calcium, IonizedOrdered By: Delon Jessica on 10-20-2019 Interpretation and review of laboratory results Abnormal [facility] Work Phone: Ionized Ca 3.80 mg/dL Low 4.3 - 5.2 mg/dL [facility] Work Phone: pH (Bld) 7.41 [pH] [facility] Work Phone: Test Performed by [employer], [address] [place], [place] [address] Work Phone: Hemoglobin and Hematocrit, B loodOrdered By: Brett Encarnacion on 10-20-2019 Hematocrit (Bld) [Volume fraction] 25.2 % Low 40 - 52 % [facility] Work Phone: 1 Hemoglobin (Bld) [Mass/Vol] 9.0 g/dL Low 13 - 18 g/dL [facility] Work Phone: Interpretation and review of laboratory results Abnormal [facility] Work Phone: Test Performed by [employer], [address] [place] [address] [employer] Work Phone: Hemoglobin and Hematocrit, B loodOrdered By: Delon Jessica on 10-20-2019 Hematocrit (Bld) [Volume fraction] 19.6 % Low 40 - 52 % [facility] Work Phone: 1 Hemoglobin (Bld) [Mass/Vol] 6.7 g/dL Critically low 13 - 18 g/dL [facility] Work Phone: Interpretation and review of laboratory results Abnormal [facility] Work Phone: Test Performed by [facility], [address] [place] [address] [employer] Work Phone: Laboratory - Blood bankOrder ed By: Delon Jessica on 10-20-2019 ABO and Rh group Nom (Bld) 9500 [facility] Work Phone: MagnesiumOrdered By: Delon Jessica on 10-20-2019 Magnesium [Mass/Vol] 1.8 mg/dL 1.6 - 2 .3 mg/dL [facility] Work Phone: No Panel InformationOrdered By: Delon Jessica on 10-20-2019 Test Performed by [facility], [address] [place] [address] Work Phone: Test Performed by [facility], [address] [place], [place] [address] Work Phone: PREPARE RBC (CROSSMATCH), 2 UnitsOrdered By: Delon Jessica on 10-20-2019 Blood product unit ID (Dose) [#] [id number] [facility] Work Phone: Blood product unit ID (Dose) [#] [id number] [facility] Work Phone: Dispense Status Blood Bank transfused [facility] Work Phone: Expiration Date [id number] [facility] Work Phone: Product Code Blood Bank [id number] [facility] Work Phone: [employer] Work Phone: PhosphorusOrdered By: Patrick Jessica on 10-20-2019 Interpretation and review of laboratory results Abnormal [facility] Work Phone: Phosphate [Mass/Vol] 12.3 mg/dL High 2.5 - 4 .5 mg/dL [facility] Work Phone: [phone] RBC MORPHOLOGYOrdered By: Caleb Jessica on 10-20-2019 Hypochromia Slight [facility] Work Phone: [phone] Poikilocytes Slight [facility] Work Phone: [phone] RBC morphology finding Nom (Bld) ABNORMAL [facility] Work Phone: [phone] Surgical PathologyOrdered By : Jeana Pedraza on 10-20-2019 Surgical Pathology Report SEE BELOW [facility] Work Phone: [phone] [id number] [facility] PATHOLOGY AND LABORATORY MEDICINE [address] [place] [address] FINAL PERIPHERAL BLOOD REPORT NAME: GLENN SNYDER : 1965 53 Y M [facility] NO.: [id number] LOCATION: [place] [address] PROCEDURE 10/19/2019 DATE: SURGEON: JEANA PEDRAZA MD RECEIVED DATE: 10/20/2019 ATTENDING BRETT ENCARNACION REPORT DATE: 10/20/2019 : COPIES TO: DIAGNOSIS: NORMOCYTIC ANEMIA WITH ANISOCYTOSIS, INCLUDING SCHISTOCYTES AND MILD AGGLUTINATION, RULE OUT ANEMIA OF CHRONIC INFLAMMATION/RENAL DISEASE, IRON/NUTRITIONAL DEFICIENCIES, COAGULOPATHY AND/OR PARAPROTEINEMIA NO BLASTS OR DYSGRANULOPOIESIS IS SEEN. RUG CUTTER/RUG CUTTER Signature> YOHANNES DIAL M.D. CLINICAL INFORMATION: Peripheral [...] characteristics determined by the clinical laboratories of [facility]. They have not been cleared by the [...] specimens. DEPARTMENT OF PATHOLOGY AND LABORATORY MEDICINE [place], [place] [address] [employer] Work Phone: Add On Lab TestOrdered By: Michelle Encarnacion on 10-19-2019 Add On Rejected [facility] Work Phone: Test Performed by [facility], [address] [place], [place] [address] [employer] Work Phone: Add On Lab TestOrdered By: Cecil Nieves on 10-19-2019 Add On Accepted [employer] Work Phone: Comment on above: Specimen available & acceptable for analysis. Test Performed by [facility], [address] [place], [place] [address] [employer] Work Phone: Add On Accepted [facility] Work Phone: [phone] Comment on above: Specimen available & acceptable for analysis. Test Performed by [facility], [address] [address] [place], [place] [address] [facility] Work Phone: [phone] Basic Metabolic PanelOrdered By: Brett Encarnacion on 10-19-2019 Anion gap [Moles/Vol] 20 mmol/L [facility] Work Phone: [phone] Calcium [Mass/Vol] 8.4 mg/dL 8.4 - 10. 4 mg/dL [facility] Work Phone: 1 Chloride [Moles/Vol] 96 mmol/L Low 98 - 10 7 mmol/L [facility] Work Phone: [phone] CO2 [Moles/Vol] 18 mmol/L Low 22 - 30 mmol/L [facility] Work Phone: [phone] Creatinine [Mass/Vol] 12.26 mg/dL High 0.52 - 1.25 mg/dL [facility] Work Phone: [phone] EGFR IF NonAfrican Citizen Of [place] 4.3 mL/min >60 [facility] Work Phone: [phone] Comment on above: Source- MDRD equatio n with creatinine calibration to IDMS(NKDEP) eGFR not recommended for drug dose adjustment GFR/1.73 sq M.predicted among blacks MDRD (S/P/Bld) [Vol rate/Area] 5.2 mL/min/{1.73_m2} >60 [facility] Work Phone: [phone] Glucose [Mass/Vol] 109 mg/dL High 70 - 100 mg/dL [facility] Work Phone: [phone] Interpretation and review of laboratory results Abnormal [facility] Work Phone: [phone] Potassium [Moles/Vol] 4.4 mmol/L 3.5 - 5.1 mmol/L [facility] Work Phone: [phone] Sodium [Moles/Vol] 134 mmol/L Low 135 - 145 mmol/L [facility] Work Phone: [phone] Urea nitrogen [Mass/Vol] 118 mg/dL High 7 - 20 mg/d L [facility] Work Phone: [phone] Test Performed by [employer], [address] [place], [place] [address] [employer] Work Phone: 1 Blood Occult Stool Screen #1 Ordered By: Callie Nieves on 10-19-2019 Hemoglobin.gastrointesti nal Ql (Stl) Negative Negative NA [employer] Work Phone: 1 Test Performed by [facility], [address] [place], [place] [address] [employer] Work Phone: [phone] ComplementOrdered By: Nadia Pedraza on 10-19-2019 C3 Complement 115 mg/dL 85 - 165 mg/dL [employer] Work Phone: C4 ComplementOrdered By: Nadia z Plaidmercy on 10-19-2019 C4 Complement 37 mg/dL 14 - 44 mg/dL [employer] Work Phone: 1 CBC Auto DifferentialOrdered By: Jeana Manemercy on 10-19-2019 Absolute Baso # 0.0 10*3/uL 0 - 0.2 10*3/uL [facility] Work Phone: Absolute Neut # 7.7 10*3/uL High 1.8 - 7 10*3/uL [facility] Work Phone: Basophils/100 WBC (Bld) 0.1 % 0 - 2 % [facility] Work Phone: Eosinophils (Bld) [#/Vol] 0.0 10*3/uL 0 - 0.5 10*3/uL [facility] Work Phone: [phone] Eosinophils/100 WBC (Bld) 0.0 % Low 1 - 6 % [facility] Work Phone: Erythrocyte distribution width (RBC) [Ratio] 13.1 % 11.5 - 14.5 % [employer] Work Phone: Granulocytes/100 WBC (Bld) 93.1 % High 40 - 80 % [facility] Work Phone: Hematocrit (Bld) [Volume fraction] 26.9 % Low 40 - 52 % [employer] Work Phone: Hemoglobin (Bld) [Mass/Vol] 9.1 g/dL Low 13 - 18 g/dL [employer] Work Phone: 1 Interpretation and review of laboratory results Abnormal [facility] Work Phone: 1 Lymphocytes (Bld) [#/Vol] 0.4 10*3/uL Low 1 - 4.3 10*3/uL [employer] Work Phone: Lymphocytes/100 WBC (Bld) 5.1 % Low 20 - 40 % [employer] Work Phone: MCH (RBC) [Entitic mass] 29.2 pg 26 - 34 pg [employer] Work Phone: MCHC 33.8 % 32 - 36 % [employer] Work Phone: MCV (RBC) [Entitic vol] 86.5 fL 80 - 98 fL [facility] Work Phone: Monocytes (Bld) [#/Vol] 0.1 10*3/uL 0 - 0.8 10*3/uL [employer] Work Phone: Monocytes/100 WBC (Bld) 1.7 % Low 2 - 10 % [facility] Work Phone: Platelet mean volume (Bld) [Entitic vol] 8.0 fL 7.4 - 10.4 fL [employer] Work Phone: Platelets (Bld) [#/Vol] 246 10*3/uL 140 - 440 10*3/uL [employer] Work Phone: RBC (Bld) [#/Vol] 3.11 10*6/uL Low 4.4 - 5.9 10*6/uL [employer] Work Phone: WBC (Bld) [#/Vol] 8.3 10*3/uL 3.6 - 10.7 10*3/uL [employer] Work Phone: Test Performed by [facility], [address] [place] [address] [employer] Work Phone: CT Abdomen Pelvis Wo Contras tOrdered By: Callie Nieves on 10-19-2019 Patient Name: GLENN SNYDER ---CT--- Exam Date/Time 10/19/2019 08:12:[address] Abdomen/Pelvis (No PO, No IV) Ordering Physician DO NIEVES DAVID J Accession Number [id number] CPT4 Codes 39281 (CT Abdomen/Pelvis (No PO, No IV)) Reason [...] bilateral renal atrophy. No urologic calcification. 3. Vtje-ya-fwqmkoed diverticulosis. No acute diverticulitis. Report Dictated on --- Final --- Dictating Physician: MD BUTCHER ANTHONY J Signed Date and Time: 10/19/2019 8:40 am Signed by: MD BUTCHER ANTHONY J Transcribed Date and Time: 10/19/2019 8:41 [facility] Work Phone: Mike, [facility] Results From [facility] - 10/19/2019 8:42 AM EST Patient Name: GLENN SNYDER ---CT--- Exam Date/Time 10/19/2019 08:12:[address] Abdomen/Pelvis (No PO, No IV) Ordering Physician DO NIEVES DAVID J Accession Number [id number] CPT4 Codes 97778 (CT Abdomen/Pelvis (No PO, No IV)) Reason [...] bilateral renal atrophy. No urologic calcification. 3. Chvz-pi-jytqfvnm diverticulosis. No acute diverticulitis. Report Dictated on --- Final --- Dictating Physician: MD BUTCHER ANTHONY J Signed Date and Time: 10/19/2019 8:40 am Signed by: MD BUTCHER ANTHONY J Transcribed Date and Time: 10/19/2019 8:41 [facility] Work Phone: [phone] Comprehensive Metabolic Pane lOrdered By: Callie Nieves on 10-19-2019 Albumin [Mass/Vol] 3.9 g/dL 3.5 - 5 g/dL [facility] Work Phone: [phone] ALP [Catalytic activity/Vol] 58 U/L 38 - 126 U/L [facility] Work Phone: [phone] ALT [Catalytic activity/Vol] 27 U/L 13 - 69 U/L [facility] Work Phone: [phone] Anion gap [Moles/Vol] 22 mmol/L [facility] Work Phone: [phone] [Catalytic activity/Vol] 41 U/L 15 - 46 U/L [facility] Work Phone: [phone] Bilirubin [Mass/Vol] 0.5 mg/dL 0.2 - 1 .3 mg/dL [facility] Work Phone: [phone] Calcium [Mass/Vol] 8.0 mg/dL Low 8.4 - 10. 4 mg/dL [facility] Work Phone: [phone] Chloride [Moles/Vol] 106 mmol/L 98 - 10 7 mmol/L [facility] Work Phone: [phone] CO2 [Moles/Vol] 8 mmol/L Low 22 - 30 mmol/L [facility] Work Phone: [phone] Creatinine [Mass/Vol] 17.04 mg/dL High 0.52 - 1.25 mg/dL [facility] Work Phone: [phone] EGFR IF NonAfrican Citizen Of [place] 3.0 mL/min >60 [facility] Work Phone: [phone] Comment on above: Source- MDRD equatio n with creatinine calibration to IDMS(NKDEP) eGFR not recommended for drug dose adjustment GFR/1.73 sq M.predicted among blacks MDRD (S/P/Bld) [Vol rate/Area] 3.6 mL/min/{1.73_m2} >60 [facility] Work Phone: Glucose [Mass/Vol] 93 mg/dL 70 - 100 mg/dL [facility] Work Phone: Interpretation and review of laboratory results Abnormal [facility] Work Phone: Potassium [Moles/Vol] 6.6 mmol/L Critically high 3.5 - 5.1 mmol/L [facility] Work Phone: Protein [Mass/Vol] 7.1 g/dL 6.3 - 8.2 g/dL [facility] Work Phone: Sodium [Moles/Vol] 136 mmol/L 135 - 145 mmol/L [facility] Work Phone: Urea nitrogen [Mass/Vol] 179 mg/dL High 7 - 20 mg/d L [facility] Work Phone: Test Performed by [facility], [address] [place] [id number] [place] [address] Work Phone: Albumin [Mass/Vol] 4.3 g/dL 3.5 - 5 g/dL [facility] Work Phone: ALP [Catalytic activity/Vol] 68 U/L 38 - 126 U/L [facility] Work Phone: ALT [Catalytic activity/Vol] 31 U/L 13 - 69 U/L [facility] Work Phone: Anion gap [Moles/Vol] 22 mmol/L [facility] Work Phone: AST [Catalytic activity/Vol] 38 U/L 15 - 46 U/L [facility] Work Phone: Bilirubin [Mass/Vol] 0.3 mg/dL 0.2 - 1 .3 mg/dL [facility] Work Phone: Calcium [Mass/Vol] 8.1 mg/dL Low 8.4 - 10. 4 mg/dL [facility] Work Phone: Chloride [Moles/Vol] 104 mmol/L 98 - 10 7 mmol/L [facility] Work Phone: CO2 [Moles/Vol] 10 mmol/L Low 22 - 30 mmol/L [facility] Work Phone: [phone] Creatinine [Mass/Vol] 17.95 mg/dL High 0.52 - 1.25 mg/dL [facility] Work Phone: [phone] EGFR IF NonAfrican Citizen Of [place] 2.8 mL/min >60 [facility] Work Phone: [phone] Comment on above: Source- MDRD equatio n with creatinine calibration to IDMS(NKDEP) eGFR not recommended for drug dose adjustment GFR/1.73 sq M.predicted among blacks MDRD (S/P/Bld) [Vol rate/Area] 3.4 mL/min/{1.73_m2} >60 [facility] Work Phone: [phone] Glucose [Mass/Vol] 101 mg/dL High 70 - 100 mg/dL [facility] Work Phone: [phone] Interpretation and review of laboratory results Abnormal [facility] Work Phone: [phone] Potassium [Moles/Vol] 7.3 mmol/L Critically high 3.5 - 5.1 mmol/L [facility] [facility] Work Phone: [phone] Protein [Mass/Vol] 7.9 g/dL 6.3 - 8.2 g/dL [facility] Work Phone: [phone] Sodium [Moles/Vol] 136 mmol/L 135 - 145 mmol/L [facility] Work Phone: [phone] Urea nitrogen [Mass/Vol] 179 mg/dL High 7 - 20 mg/d L [facility] Work Phone: Test Performed by [employer], [address] [place], [place] [address] Work Phone: [phone] EKG 12 Lead - Chest PainOrde red By: Callie Nieves on 10-19-2019 [employer] Test Date: 2019-10-19 Pat Name: Glenn Snyder Department: 2AED Room: 19 Gender: M Gunite 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: SHAWN : 1965 Requested By: CALLIE NIEVES Order Number: [id number] Reading MD: Alessia Tapia Measurements Intervals [place] Rate: 97 P: 78 NH: 128 QRS: 49 QRSD: 106 T: 83 QT: 376 QTc: 478 Interpretive Statements SINUS RHYTHM LEFT ATRIAL ABNORMALITY INCOMPLETE RIGHT BUNDLE BRANCH BLOCK LEFT VENTRICULAR HYPERTROPHY BORDERLINE PROLONGED QT INTERVAL No previous ECG available for comparison Electronically Signed On 10-19-2019 8:49:06 EST by Alessia Tapia [employer] Work Phone: Mike, [facility] Incoming Cardiology Results From [facility] - 10/19/2019 8:50 AM EST [facility] Test Date: 2019-10-19 Pat Name: Glenn Snyder Department: [facility] Room: 19 Gender: M Gunite 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: SHAWN : 1965 Requested By: CALLIE NIEVES Order Number: [id number] Reading MD: Alessia Tapia Measurements Intervals [place] Rate: 97 P: 78 NH: 128 QRS: 49 QRSD: 106 T: 83 QT: 376 QTc: 478 Interpretive Statements SINUS RHYTHM LEFT ATRIAL ABNORMALITY INCOMPLETE RIGHT BUNDLE BRANCH BLOCK LEFT VENTRICULAR HYPERTROPHY BORDERLINE PROLONGED QT INTERVAL No previous ECG available for comparison Electronically Signed On 10-19-2019 8:49:06 EST by Alessia Tapia [employer] Work Phone: HEPATITIS B SURFACE ANTIGENO rdered By: Jeana Pedraza on 10-19-2019 Hepatitis B Surface Ag Not detected Not-D etected [employer] Work Phone: HIV ScreenOrdered By: Adan Encarnacion on 10-19-2019 HIV 1+2 [id number] AG, EIA Non-Reactive Nonreactive NA [employer] Work Phone: Comment on above: Results obtained [...] # 0.1 10*3/uL 0 - 0.2 10*3/uL [employer] Work Phone: [phone] Absolute Neut # 11.3 10*3/uL High 1.8 - 7 10*3/uL [employer] Work Phone: Basophils/100 WBC (Bld) 0.6 % 0 - 2 % [facility] [employer] [facility] Work Phone: 1 22 Eosinophils (Bld) [#/Vol] 0.2 10*3/uL 0 - 0.5 10*3/uL [employer] Work Phone: 1 22 Eosinophils/100 WBC (Bld) 1.2 % 1 - 6 % [employer] Work Phone: 1 22 Erythrocyte distribution width (RBC) [Ratio] 13.4 % 11.5 - 14.5 % [employer] Work Phone: 1 22 Granulocytes/100 WBC (Bld) 80.5 % High 40 - 80 % [employer] Work Phone: Hematocrit (Bld) [Volume fraction] 23.2 % Low 40 - 52 % [employer] Work Phone: Hemoglobin (Bld) [Mass/Vol] 7.8 g/dL Low 13 - 18 g/dL [facility] Work Phone: Interpretation and review of laboratory results Abnormal [employer] Work Phone: 1 Lymphocytes (Bld) [#/Vol] 1.4 10*3/uL 1 - 4.3 10*3/uL [employer] Work Phone: 22 Lymphocytes/100 WBC (Bld) 9.8 % Low 20 - 40 % [employer] Work Phone: 1 MCH (RBC) [Entitic mass] 29.4 pg 26 - 34 pg [facility] Work Phone: 22 MCHC 33.6 % 32 - 36 % [facility] Work Phone: MCV (RBC) [Entitic vol] 87.4 fL 80 - 98 fL [facility] [employer] Work Phone: Monocytes (Bld) [#/Vol] 1.1 10*3/uL High 0 - 0.8 10*3/uL [employer] Work Phone: 22 Monocytes/100 WBC (Bld) 7.9 % 2 - 10 % S [employer] Work Phone: Platelet mean volume (Bld) [Entitic vol] 7.6 fL 7.4 - 10.4 fL [employer] Work Phone: 1 Platelets (Bld) [#/Vol] 293 10*3/uL 140 - 440 10*3/uL [employer] Work Phone: RBC (Bld) [#/Vol] 2.66 10*6/uL Low 4.4 - 5.9 10*6/uL [employer] Work Phone: 1 WBC (Bld) [#/Vol] 14.1 10*3/uL High 3.6 - 10.7 10*3/uL [employer] Work Phone: 1 Test Performed by [employer], [address] [place], [place] [address] [employer] Work Phone: Hepatitis C AntibodyOrdered By: Jeana Pedraza on 10-19-2019 Hepatitis C Ab Not detected Not-Detected NA [employer] Work Phone: Comment on above: Patients with DETECT ED Hepatitis C Ab results should have a new specimen submitted for supplemental testing with a Hepatitis C Quantitative RNA assay (viral load), if clinically indicated. MagnesiumOrdered By: Callie shaw on 10-19-2019 Magnesium [Mass/Vol] 2.1 mg/dL 1.6 - 2 .3 mg/dL [employer] Work Phone: Test Performed by [employer], [address] [place], [place] [address] [employer] Work Phone: No Panel InformationOrdered By: Brett Encarnacion on 10-19-2019 Test Performed by [employer], [address] [place] [address] [employer] Work Phone: No Panel InformationOrdered By: Jeana Pedraza on 10-19-2019 Test Performed by [employer], [address] [place], [place] [address] [employer] Work Phone: PROCALCITONINOrdered By: Eldon Encarnacion on 10-19-2019 Interpretation See Below [employer] Work Phone: Comment on above: PCT <0.50 = Low risk of severe sepsis and/or septic shock. PCT >2.00 = High risk of severe sepsis and/or septic shock. Interpretation and review of laboratory results Abnormal [employer] Work Phone: 1 Procalcitonin 0.74 ng/mL Abnormal <0.10 [employer] Work Phone: 1 PhosphorusOrdered By: Callie Nieves on 10-19-2019 Interpretation and review of laboratory results Abnormal [employer] Work Phone: 1 Phosphate [Mass/Vol] 14.8 mg/dL High 2.5 - 4 .5 mg/dL [facility] Work Phone: 1 Test Performed by [employer], [address] [place], [place] [address] [employer] Work Phone: TYPE AND SCREENOrdered By: Cecil Nieves on 10-19-2019 ABO Grouping O [employer] Work Phone: 1 Rh Type Negative [employer] Work Phone: Comment on above: Test Performed by [facility], [address] [place] [address] Test Performed by [facility], [address] [place] [address] [employer] Work Phone: TroponinOrdered By: Callie garcia on 10-19-2019 Interpretation and review of laboratory results Abnormal [facility] Work Phone: Troponin I.cardiac [Mass/Vol] 0.075 ng/mL High 0 - 0.034 ng/mL [facility] Work Phone: Comment on above: . Test Performed by [employer], [address] [place] [address] [facility] Work Phone: UrinalysisOrdered By: Callie Nieves on 10-19-2019 AMORPHOUS CRYSTAL Few Negative /[HPF] [employer] Work Phone: Appearance (U) Clear Clear NA [employer] Work Phone: Bacteria, UA Few Negative /[HPF] [employer] Work Phone: Bilirubin Urine Negative Negative mg/dL [employer] Work Phone: 1 Color (U) Colorless Lt. Yellow NA [employer] Work Phone: [phone] Glucose, Ur 200 mg/dL Normal (<70) [facility] Work Phone: [phone] Ketones Ql (U) Negative Negative mg/dL [facility] Work Phone: [phone] LEUKOCYTES, UA Negative Negative Juliana/uL [facility] Work Phone: [phone] Mucous Threads Few Negative /[LPF] [facility] Work Phone: [phone] Nitrite, Urine Negative Negative NA [facility] Work Phone: [phone] Occult Blood,Urine 0.2 mg/dL Negative [facility] Work Phone: [phone] pH (U) 6.0 [pH] [facility] Work Phone: [phone] Protein (U) [Mass/Vol] 200 mg/dL Negative [facility] Work Phone: [phone] RBC, UA 6-10 0 - 2 /[HPF] [facility] Work Phone: [phone] Specific [place], Urine 1.009 S [facility] Work Phone: [phone] Squam Epithel, UA 0-2 3 - 5 /[HPF] [facility] Work Phone: [phone] Urobilinogen, Urine Normal Normal ( 0-1) mg/dL [facility] Work Phone: [phone] WBC, UA 6-10 0 - 5 /[HPF] [facility] Work Phone: [phone] Test Performed by [employer], [address] [place] [id number] [place] [address] Work Phone: [phone] XR CHEST PORTABLEOrdered By: Brett Encarnacion on 10-19-2019 Patient Name: GLENN SNYDER ---Diagnostic Radiology--- Exam Date/Time 10/19/2019 12:11:06 EST Exam CR Chest Portable Ordering Physician MD ENCARNACION MATTHEW Accession Number [id number] CPT4 Codes 00185 () Reason For Exam line placement/vascath Report [...] RISA Transcribed Date and Time: 10/19/2019 12:56 [facility] Work Phone: [facility], [facility] Incoming Radiology Results From [facility] - 10/19/2019 12:57 PM EST Patient Name: GLENN SNYDER ---Diagnostic Radiology--- Exam Date/Time 10/19/2019 12:11:06 EST Exam CR Chest Portable Ordering Physician MD ENCARNACION MATTHEW Accession Number [id number] CPT4 Codes 31615 () Reason For Exam line placement/vascath Report [...] RISA Transcribed Date and Time: 10/19/2019 12:56 [facility] Work Phone: Vital Signs Date Time Vital Sign Value Performing Clinician Angelia sweet 03-21-2025 16:02-0400 Body temperature 98.29 [degF] Keiry Solares MD Work Phone: [facility] 03-21-2025 16:02-0400 Diastolic blood pressure 85 mm[Hg] Keiry Solares MD Work Phone: [facility] 03-21-2025 16:02-0400 Heart rate 71 /min Keiry Solares MD Work Phone: [facility] 03-21-2025 16:02-0400 Respiratory rate 18 /min Keiry Solares MD Work Phone: [facility] 03-21-2025 16:02-0400 SaO2% (BldA) [Mass fraction] 94 % Keiry Solares MD Work Phone: [facility] 03-21-2025 16:02-0400 Systolic blood pressure 147 mm[Hg] Keiry Solares MD Work Phone: [facility] 03-21-2025 03:15-0400 Body mass index (BMI) [Ratio] 22.24 kg/m2 Keiry Solares MD Work Phone: [facility] 03-21-2025 03:15-0400 Body weight 70.31 kg Keiry Solares MD Work Phone: [facility] 03-14-2025 16:17-0400 Body height 177.8 cm Keiry Solares MD Work Phone: [facility] 03-05-2025 14:03-0400 Body temperature 97 [degF] Mejgon Cuca DO Work Phone: [facility] 03-05-2025 14:03-0400 Diastolic blood pressure 83 mm[Hg] Mejgon Cuca DO Work Phone: [facility] 03-05-2025 14:03-0400 Heart rate 78 /min Mejgon Cuca DO Work Phone: [facility] 03-05-2025 14:03-0400 Respiratory rate 16 /min Mejgon Cuca DO Work Phone: [facility] 03-05-2025 14:03-0400 SaO2% (BldA) [Mass fraction] 100 % Mejgon Cuca DO Work Phone: [facility] 03-05-2025 14:03-0400 Systolic blood pressure 137 mm[Hg] Palak Thurman DO Work Phone: [facility] 02-23-2025 14:13-0400 Body height 177.8 cm Palak Thurman DO Work Phone: [facility] 02-23-2025 14:13-0400 Body mass index (BMI) [Ratio] 19.23 kg/m2 Palak Thurman DO Work Phone: [facility] 02-23-2025 14:13-0400 Body weight 60.78 kg Palak Thurman DO Work Phone: [facility] 02-14-2025 10:30-0400 Body height 177.8 cm Mikala Day PA-C Work Phone: [facility] 02-14-2025 10:30-0400 Body mass index (BMI) [Ratio] 18.65 kg/m2 Mikala Day PA-C Work Phone: [facility] 02-14-2025 10:30-0400 Body temperature 96.8 [degF] Mikala Day PA-C Work Phone: [facility] 02-14-2025 10:30-0400 Body weight 58.97 kg Mikala Day PA-C Work Phone: [employer] 02-14-2025 10:30-0400 Diastolic blood pressure 72 mm[Hg] Mikala Day PA-C Work Phone: [facility] 02-14-2025 10:30-0400 Heart rate 89 /min Mikala Day PA-C Work Phone: [employer] [facility] 02-14-2025 10:30-0400 SaO2% (BldA) [Mass fraction] 98 % Mikala Day PA-C Work Phone: [facility] 02-14-2025 10:30-0400 Systolic blood pressure 138 mm[Hg] Mikala Day PA-C Work Phone: [facility] 02-01-2025 15:02-0400 Body temperature 96.69 [degF] Lazaro Rojo MD Work Phone: [facility] 02-01-2025 15:02-0400 Diastolic blood pressure 60 mm[Hg] Lazaro Rojo MD Work Phone: [facility] 02-01-2025 15:02-0400 Heart rate 81 /min Lazaro Rojo MD Work Phone: [facility] 02-01-2025 15:02-0400 Respiratory rate 16 /min Lazaro Rojo MD Work Phone: [facility] 02-01-2025 15:02-0400 SaO2% (BldA) [Mass fraction] 98 % Lazaro Rojo MD Work Phone: [facility] 02-01-2025 15:02-0400 Systolic blood pressure 118 mm[Hg] Lazaro Rojo MD Work Phone: [facility] 02-01-2025 05:36-0400 Body mass index (BMI) [Ratio] 14.58 kg/m2 Lazaro Rojo MD Work Phone: [facility] 02-01-2025 05:36-0400 Body weight 46.1 kg Lazaro Rojo MD Work Phone: [facility] 01-30-2025 10:02-0400 Body height 177.8 cm Lazaro Rojo MD Work Phone: [facility] 08-28-2024 15:33-0500 Body height 177.8 cm Jr Shah MD Work Phone: [facility] 08-28-2024 15:33-0500 Body mass index (BMI) [Ratio] 29.56 kg/m2 Jr Shah MD Work Phone: [facility] 08-28-2024 15:33-0500 Body weight 93.44 kg Jr Shah MD Work Phone: [facility] [facility] 08-28-2024 15:33-0500 Diastolic blood pressure 80 mm[Hg] Jr Shah MD Work Phone: [facility] [facility] 08-28-2024 15:33-0500 Heart rate 75 /min Jr Shah MD Work Phone: [facility] 08-28-2024 15:33-0500 Systolic blood pressure 130 mm[Hg] Jr Shah MD Work Phone: [facility] 11-12-2023 14:16-0500 Diastolic blood pressure 84 mm[Hg] Quiana Contreras [employer] Work Phone: [facility] 11-12-2023 14:16-0500 Systolic blood pressure 138 mm[Hg] Quiana Contreras [employer] Work Phone: [facility] 11-12-2023 13:41-0500 Body height 177.8 cm Quiana Contreras [employer] Work Phone: [facility] 11-12-2023 13:41-0500 Body mass index (BMI) [Ratio] 29.84 kg/m2 Quiana Contreras [employer] Work Phone: [facility] 11-12-2023 13:41-0500 Body weight 94.35 kg Quiana Contreras [employer] Work Phone: [facility] 11-12-2023 13:41-0500 Heart rate 85 /min Quiana Contreras [employer] Work Phone: [facility] 08-17-2023 13:12-0500 Diastolic blood pressure 67 mm[Hg] Dionicion Ozzie DO Work Phone: [facility] 08-17-2023 13:12-0500 Heart rate 84 /min Jaklyn [place] DO Work Phone: [facility] 08-17-2023 13:12-0500 Respiratory rate 18 /min Gurinderlyn [place] DO Work Phone: [facility] 08-17-2023 13:12-0500 SaO2% (BldA) [Mass fraction] 98 % Jaklyn Ozzie DO Work Phone: [facility] 08-17-2023 13:12-0500 Systolic blood pressure 94 mm[Hg] Dangelo Horne DO Work Phone: [facility] 08-17-2023 09:13-0500 Body height 177.8 cm Dangelo Horne DO Work Phone: [facility] 08-17-2023 09:13-0500 Body mass index (BMI) [Ratio] 28.7 kg/m2 Dangelo Horne DO Work Phone: [facility] 08-17-2023 09:13-0500 Body weight 90.72 kg Dangelo Horne DO Work Phone: [facility] 08-17-2023 08:50-0500 Body temperature 99 [degF] Dangelo Horne DO Work Phone: [facility] 05-01-2023 20:36-0400 Diastolic blood pressure 85 mm[Hg] Jese Frank MD Work Phone: [facility] 05-01-2023 20:36-0400 Heart rate 74 /min Jese Frank MD Work Phone: [facility] 05-01-2023 20:36-0400 Respiratory rate 20 /min Jese Frank MD Work Phone: [facility] 05-01-2023 20:36-0400 SaO2% (BldA) [Mass fraction] 95 % Jese Frank MD Work Phone: [facility] 05-01-2023 20:36-0400 Systolic blood pressure 135 mm[Hg] Jese Frank MD Work Phone: [employer] 05-01-2023 20:08-0400 Body height 177.8 cm Jese Frank MD Work Phone: [facility] 05-01-2023 20:08-0400 Body mass index (BMI) [Ratio] 28.7 kg/m2 Jese Frank MD Work Phone: [facility] 05-01-2023 20:08-0400 Body temperature 98.2 [degF] Jese Frank MD Work Phone: [facility] 05-01-2023 20:08-0400 Body weight 90.72 kg Jese Frank MD Work Phone: [facility] 12-25-2021 15:50-0400 Body height 177.8 cm Rudy Painter MD Work Phone: [facility] 12-25-2021 15:50-0400 Body weight 99.79 kg Rudy Painter MD Work Phone: [facility] 12-25-2021 15:50-0400 Diastolic blood pressure 72 mm[Hg] Rudy Painter MD Work Phone: [facility] 12-25-2021 15:50-0400 Heart rate 70 /min Rudy Painter MD Work Phone: [facility] 12-25-2021 15:50-0400 Systolic blood pressure 130 mm[Hg] Rudy Painter MD Work Phone: [facility] 09-15-2021 11:20-0500 Body temperature 97.59 [degF] Cindy Patel MD Work Phone: [facility] 09-15-2021 11:20-0500 Diastolic blood pressure 83 mm[Hg] Cindy Patel MD Work Phone: [facility] 09-15-2021 11:20-0500 Heart rate 85 /min Cindy Patel MD Work Phone: [facility] 09-15-2021 11:20-0500 Respiratory rate 20 /min Cindy Patel MD Work Phone: [facility] 09-15-2021 11:20-0500 SaO2% (BldA) [Mass fraction] 98 % Cindy Patel MD Work Phone: [facility] 12-20-2021 11:20-0500 Systolic blood pressure 144 mm[Hg] Cindy Patel MD Work Phone: [facility] 09-15-2021 09:19-0500 Body height 177.8 cm Cindy Patel MD Work Phone: [facility] 09-15-2021 09:19-0500 Body mass index (BMI) [Ratio] 30.05 kg/m2 Cindy Patel MD Work Phone: [facility] 09-15-2021 09:19-0500 Body weight 94.98 kg Cindy Patel MD Work Phone: [facility] 10-27-2019 20:02-0500 Body temperature 97.2 [degF] Callie ADP Work Phone: [employer] Work Phone: 10-27-2019 20:02-0500 Diastolic blood pressure 77 mm[Hg] Arcamed DO Work Phone: [employer] Work Phone: 10-27-2019 20:02-0500 Heart rate 107 /min Arcamed DO Work Phone: [employer] Work Phone: 10-27-2019 20:02-0500 Respiratory rate 16 /min Callie ADP Work Phone: [employer] Work Phone: 10-27-2019 20:02-0500 SaO2% (BldA) [Mass fraction] 96 % Arcamed DO Work Phone: [employer] Work Phone: 10-27-2019 20:02-0500 Systolic blood pressure 112 mm[Hg] Arcamed DO Work Phone: [employer] Work Phone: 10-27-2019 14:10-0500 Body mass index (BMI) [Ratio] 27.08 kg/m2 [employer] Work Phone: [employer] Work Phone: 10-27-2019 14:10-0500 Body weight 85.6 kg Callie Nieves DO Work Phone: [facility] Work Phone: 10-19-2019 12:45-0500 Body height 177.8 cm Callie Nieves DO Work Phone: [facility] Work Phone: Encounters Encounter Date Encounter Type Care Provider Facility Start: 03-22-2025 ambulatory Kayley ALBA Facility:[place] Start: 03-22-2025 Registered Referred Kayley ortiz MD -[employer] Start: 03-13-2025 End: 03-21-2025 Evaluation and management of inpatient Anis Beck VASQUEZ Work Phone: [facility] Cardiac Progressive Care Unit PCU 5W Comment on above: SOB (shortness of br eath) (Primary Dx); 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, 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) Start: 03-12-2025 ambulatory [facility] Start: 03-12-2025 Registered Referred Jayesh Clarahoward [employer] Start: 03-09-2025 ambulatory [facility]ard [facility] Start: 03-09-2025 Registered Referred Jayesh Clarahoward [employer] Start: 03-08-2025 End: 03-08-2025 Orders Only Christelle Eckert RN [facility] [place] Comment on above: Tracheostomy depende nce (HCC) (Primary Dx); Tracheostomy complication, unspecified complication type (HCC); Acute respiratory failure with hypoxia (HCC) [J96.01] Start: 03-08-2025 Registered Referred Kayley ortiz MD -[employer] Start: 02-23-2025 End: 02-23-2025 Telephone encounter Elly Jett MD Work Phone: [facility] Critical Care Comment on above: Appointment Start: 02-21-2025 End: 02-25-2025 Telephone encounter Hussain Quintana MD Work Phone: [facility] [place] Comment on above: Other Start: 02-20-2025 End: 03-05-2025 Evaluation and management of inpatient Palak Thurman DO Work Phone: [facility] Trauma Neuro Progressive Care Unit PCU 3W Start: 02-20-2025 End: 02-20-2025 ambulatory Kayley Melendrez MD [place] Work Phone: Start: 02-20-2025 End: 02-20-2025 [facility] Start: 02-20-2025 [facility] Start: 02-20-2025 End: 02-20-2025 ambulatory Kayley ALBA Facility:[place] Start: 02-15-2025 End: 02-15-2025 ambulatory Kayley Melendrez MD [place] Work Phone: Start: 02-15-2025 End: 02-15-2025 [facility]ed [facility] Start: 02-15-2025 Registered [facility] Start: 02-14-2025 End: 02-14-2025 Office outpatient visit 25 minutes [facility] DANIELLE Work Phone: [facility] Mitzy Sinha Comment on above: Sacral osteomyelitis (CMS/HCC) (HCC) (Primary Dx); ESRD on hemodialysis (CMS/HCC) (HCC); 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, 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); Decubitus ulcer of sacral region, unstageable (HCC); 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 Start: 02-14-2025 End: 02-15-2025 ambulatory [facility] Start: 02-13-2025 ambulatory Kayley ALBA Facility:[place] Start: 02-13-2025 [facility] Start: 02-12-2025 End: 02-12-2025 ambulatory Kayley Melendrez MD [facility] Start: 02-12-2025 End: 02-12-2025 Departed Referred Kayley Melendrez MD [facility] Start: 02-12-2025 Registered Referred Kayley ortiz MD -[facility] Start: 02-12-2025 End: 02-12-2025 ambulatory Kayley ALBA Facility:[place] Start: 02-08-2025 End: 02-08-2025 ambulatory Kayley Melendrez MD -[facility] Start: 02-08-2025 End: 02-08-2025 Departed Referred Kayley Melendrez MD -[facility] Start: 02-08-2025 Registered Referred Kayley ortiz MD -[facility] [employer] Start: 02-07-2025 End: 02-08-2025 ambulatory Kayley ALBA [place] Work Phone: Start: 02-07-2025 End: 02-07-2025 Departed Referred Jayesh Stubbs -[facility] Start: 02-07-2025 Registered Referred Jayesh Stubbs - [facility] Start: 02-07-2025 End: 02-07-2025 ambulatory Jayesh ALBA Facility:[place] Start: 02-05-2025 End: 02-05-2025 ambulatory Kayley Melendrez MD [place] Work Phone: Start: 02-05-2025 End: 02-05-2025 Departed Referred Kayley Melendrze MD -[facility] [employer] Start: 02-05-2025 End: 02-05-2025 ambulatory Kayley ALBA Facility:[place] Start: 02-02-2025 End: 02-02-2025 Anticoagulant drug monitoring Adalberto Deleon PharmD [facility] Comment on above: S/P AVR (Primary Dx) Start: 01-29-2025 End: 02-05-2025 Telephone encounter Adina Montenegro MA [facility] Anticoagulatio n Management Service Comment on above: Anticoagulation Start: 01-19-2025 End: 02-01-2025 Evaluation and management of inpatient Lazaro Rojo MD Work Phone: [facility] Cardiac Vascular Progressive Care Unit PCC 1C Start: 01-18-2025 End: 01-18-2025 ambulatory Jefferson Nathan MD Work Phone: [facility] Comment on above: Acute respiratory fa ilure with hypoxia (HCC) [J96.01] (Primary Dx); RSV (acute bronchiolitis due to respiratory syncytial virus); 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HCC); Leg DVT (deep venous thromboembolism), acute, left (HCC); Pulmonary embolism, unspecified chronicity, unspecified pulmonary embolism type, unspecified whether acute cor pulmonale present (HCC); S/P AVR Start: 01-17-2025 End: 01-17-2025 ambulatory Jefferson Nathan MD Work Phone: [facility] Comment on above: RSV (acute bronchiol [...] nce (HCC) (Primary Dx); ESRD on hemodialysis ([facility]) (HCC); care home (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; Decubitus ulcer of sacral region, unstageable (HCC); Sacral osteomyelitis (CMS/HCC) (HCC) Start: 01-16-2025 End: 01-16-2025 ambulatory Jefferson Nathan MD Work Phone: [facility] Comment on above: RSV (acute bronchiol [...] 01-15-2025 ambulatory Jefferson Nathan MD Work Phone: [facility] Comment on above: RSV (acute bronchiol [...] 01-14-2025 ambulatory Hany Berrios MD Work Phone: [facility] Comment on above: Acute respiratory fa ilure with hypoxia (HCC) [J96.01] (Primary Dx); 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]; Pulmonary embolism, other, unspecified chronicity, unspecified whether acute cor pulmonale present (HCC) Start: 01-12-2025 End: 01-12-2025 ambulatory Mikala Day PA-C Work Phone: [facility] Comment on above: Tracheostomy depende nce (HCC) (Primary Dx); Sacral osteomyelitis (CMS/HCC) (HCC); Leukocytosis, unspecified type; Decubitus ulcer of sacral region, unstageable (HCC); 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 Acute respiratory fa ilure with hypoxia (HCC) [J96.01] (Primary Dx); 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]; Pulmonary embolism, other, unspecified chronicity, unspecified whether acute cor pulmonale present (HCC) Start: 01-11-2025 End: 01-11-2025 ambulatory Mikala Day PA-C Work Phone: [facility] Comment on above: [...] 01-10-2025 ambulatory Hany Berrios MD Work Phone: [facility] Comment on above: Acute respiratory fa ilure with hypoxia (HCC) [J96.01] (Primary Dx); 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]; Pulmonary embolism, other, unspecified chronicity, unspecified whether acute cor pulmonale present (HCC) Start: 01-09-2025 End: 01-09-2025 ambulatory Mikala Day PA-C Work Phone: [facility] Comment on above: [...] 01-08-2025 ambulatory Mikala Day PA-C Work Phone: [facility] Comment on above: [...] End: 01-05-2025 ambulatory Sydni Husain APRN - [employer] Work Phone: [facility] [place] Comment on above: Pneumonia of both marleny ngs due to methicillin susceptible Staphylococcus aureus (MSSA), unspecified part of lung (HCC) (Primary Dx); Acute hypoxic respiratory failure (HCC); 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HCC); ESRD on hemodialysis (CMS/HCC) (HCC); Sacral osteomyelitis (CMS/HCC) (HCC); Decubitus ulcer of sacral region, unstageable (HCC) Start: 01-05-2025 End: 01-05-2025 Patient encounter procedure Chandrika Allen APRN - [employer] Work Phone: [facility] [place] Comment on above: Acute respiratory fa ilure with hypoxia (HCC) [J96.01] (Primary Dx); 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]; LRTI (lower respiratory tract infection) [J22] Start: 01-04-2025 End: 01-04-2025 Admission to same day surgery center Sydni Husain APRN - [employer] Work Phone: [facility] [place] Comment on above: Tracheostomy depende nce (HCC) (Primary Dx); Pneumonia of both lungs due to methicillin susceptible Staphylococcus aureus (MSSA), unspecified part of lung (HCC); Acute hypoxic respiratory failure (HCC); Peritonitis due to fungus (HCC); ESRD on hemodialysis (CMS/HCC) (HCC); Sacral osteomyelitis (CMS/HCC) (HCC); Leukocytosis, unspecified type; History of abdominal surgery Start: 01-04-2025 End: 01-04-2025 ambulatory Sydni Husain [employer] - [employer] Work Phone: [facility] [place] Start: 01-04-2025 End: 01-04-2025 [facility] hospital care/day 25 minutes Angeles CalderonGlen DO Work Phone: [facility] [place] Comment on above: 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] (Primary Dx); Acute respiratory failure with hypoxia (HCC) [J96.01] Start: 01-03-2025 End: 01-03-2025 ambulatory Josephine [employer] Work Phone: [facility] [place] Comment on above: Sacral osteomyelitis (CMS/HCC) (HCC) (Primary Dx); Decubitus ulcer of sacral region, unstageable (HCC); Pneumonia of both lungs due to methicillin susceptible Staphylococcus aureus (MSSA), unspecified part of lung (HCC); Leukocytosis, unspecified type; ESRD on hemodialysis (CMS/HCC) (HCC); S/P AVR Start: 01-03-2025 End: 01-03-2025 [facility] hospital care/day 25 minutes Angelesmatt Blackburn DO Work Phone: [facility] [place] Comment on above: 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] (Primary Dx); Acute respiratory failure with hypoxia (HCC) [J96.01] Start: 01-02-2025 End: 01-02-2025 ambulatory Josephine T [employer] Work Phone: [facility] [place] Comment on above: Leukocytosis, unspec ified type (Primary Dx); Pneumonia of both lungs due to methicillin susceptible Staphylococcus aureus (MSSA), unspecified part of lung (HCC); Acute hypoxic respiratory failure (HCC); Decubitus ulcer of sacral region, unstageable (HCC); ESRD on hemodialysis (CMS/HCC) (HCC); S/P AVR Start: 01-02-2025 End: 01-02-2025 [facility] hospital care/day 25 minutes Angelesmatt Blackburn DO Work Phone: [facility] [place] Comment on above: 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] (Primary Dx); Acute respiratory failure with hypoxia (HCC) [J96.01] Start: 01-01-2025 End: 01-01-2025 ambulatory Ochoa Guido MD Work Phone: [facility] Comment on above: Persistent atrial fi brillation (HCC) (Primary Dx) Leukocytosis, unspec ified type (Primary Dx); Pneumonia of both lungs due to methicillin susceptible Staphylococcus aureus (MSSA), unspecified part of lung (HCC); Acute hypoxic respiratory failure (HCC); 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HCC); Decubitus ulcer of sacral region, unstageable (HCC); ESRD on hemodialysis (CMS/HCC) (HCC); S/P AVR Start: 01-01-2025 End: 01-01-2025 [facility] hospital care/day 25 minutes Angeles Blackburn DO Work Phone: [facility] [place] Comment on above: 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] (Primary Dx); Acute respiratory failure with hypoxia (HCC) [J96.01] Start: 12-30-2024 End: 12-30-2024 ambulatory Josephine Cash [employer] - [employer] Work Phone: [facility] Comment on above: Leukocytosis, unspec ified type (Primary Dx); Acute hypoxic respiratory failure (HCC); 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HCC); S/P AVR; ESRD on hemodialysis (CMS/HCC) (HCC); Decubitus ulcer of sacral region, unstageable (HCC) Start: 12-28-2024 End: 12-28-2024 ambulatory Mercedes Hinton [employer] - [employer] Work Phone: [facility] [place] Start: 12-28-2024 End: 12-28-2024 Patient encounter procedure Mercedes Hinton [employer] - [employer] Work Phone: [facility] Comment on above: Acute respiratory fa ilure with hypoxia (HCC) [J96.01] (Primary Dx); 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]; Tracheostomy care (HCC) [Z43.0]; History of pulmonary embolus (PE) [Z86.711] Start: 12-27-2024 End: 12-27-2024 ambulatory Mercedes Hinton [employer] - [employer] Work Phone: [facility] Start: 12-27-2024 End: 12-27-2024 Patient encounter procedure Mercedes Hinton [employer] - [employer] Work Phone: [facility] Comment on above: Acute respiratory fa ilure with hypoxia (HCC) [J96.01] (Primary Dx); 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]; Tracheostomy care (HCC) [Z43.0]; History of pulmonary embolus (PE) [Z86.711] Start: 12-26-2024 End: 12-26-2024 ambulatory Mercedes Hinton [employer] - [employer] Work Phone: [facility] Start: 12-26-2024 End: 12-26-2024 Patient encounter procedure Mercedes Hinton [employer] - [employer] Work Phone: [facility] Comment on above: Acute respiratory fa ilure with hypoxia (HCC) [J96.01] (Primary Dx); 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]; Tracheostomy care (HCC) [Z43.0]; History of pulmonary embolus (PE) [Z86.711] Start: 12-22-2024 End: 12-22-2024 ambulatory Chandrika Allen [employer] - [employer] Work Phone: [facility] Start: 12-22-2024 End: 12-22-2024 Patient encounter procedure Chandrikaflako Allen [employer] - [employer] Work Phone: [facility] Comment on above: 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] (Primary Dx); Acute respiratory failure with hypoxia (HCC) [J96.01]; LRTI (lower respiratory tract infection) [J22] Start: 12-21-2024 End: 12-21-2024 ambulatory Chandrika HuongRomulo Allen [employer] - [employer] Work Phone: [facility] Start: 12-21-2024 End: 12-21-2024 Patient encounter procedure Chandrika Jonathan Alejandro [employer] - [employer] Work Phone: [facility] Comment on above: 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] (Primary Dx); Acute respiratory failure with hypoxia (HCC) [J96.01]; LRTI (lower respiratory tract infection) [J22] Start: 12-20-2024 End: 12-20-2024 ambulatory Chandrika HuongRomulo Allen [employer] - [employer] Work Phone: [facility] Start: 12-20-2024 End: 12-20-2024 Patient encounter procedure Chandrika BorjaRomulo Allen [employer] - [employer] Work Phone: [facility] Comment on above: 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] (Primary Dx); Acute respiratory failure with hypoxia (HCC) [J96.01]; LRTI (lower respiratory tract infection) [J22] Start: 12-19-2024 End: 12-19-2024 ambulatory Chandrika HuongRomulo Allen [employer] - [employer] Work Phone: [facility] Start: 12-19-2024 End: 12-19-2024 Patient encounter procedure Chandrika BorjaRomulo Allen [employer] - [employer] Work Phone: [facility] Comment on above: 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] (Primary Dx); Acute respiratory failure with hypoxia (HCC) [J96.01]; LRTI (lower respiratory tract infection) [J22] Start: 12-18-2024 End: 12-18-2024 Patient encounter procedure Chandrika Allen [employer] - [employer] Work Phone: [facility] Comment on above: Acute respiratory fa ilure with hypoxia (HCC) [J96.01] (Primary Dx); 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]; LRTI (lower respiratory tract infection) [J22] Start: 12-18-2024 End: 12-18-2024 ambulatory Chandrika Allen [employer] - [employer] Work Phone: [facility] Start: 12-15-2024 End: 12-15-2024 ambulatory Jefferson Nathan MD Work Phone: [facility] Start: 12-15-2024 End: 12-15-2024 Patient encounter procedure Jefferson Nathan MD Work Phone: [facility] Comment on above: Acute respiratory fa ilure with hypoxia (HCC) (Primary Dx); 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HCC); RSV (acute bronchiolitis due to respiratory syncytial virus); Leg DVT (deep venous thromboembolism), acute, left (HCC); Nonrheumatic aortic valve stenosis Start: 12-14-2024 End: 12-14-2024 ambulatory Jefferson Nathan MD Work Phone: [facility] Comment on above: Acute respiratory fa ilure with hypoxia (HCC) (Primary Dx); 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HCC); RSV (acute bronchiolitis due to respiratory syncytial virus); ESRD on hemodialysis (CMS/HCC) (HCC); Pulmonary embolism, other, unspecified chronicity, unspecified whether acute cor pulmonale present (HCC); Nonrheumatic aortic valve stenosis Start: 12-13-2024 End: 12-13-2024 ambulatory Jefferson Nathan MD Work Phone: [facility] Comment on above: Acute respiratory fa ilure with hypoxia (HCC) (Primary Dx); 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HCC); RSV (acute bronchiolitis due to respiratory syncytial virus); Paroxysmal A-fib (CMS/HCC) (HCC); Nonrheumatic aortic valve stenosis Start: 12-12-2024 End: 12-12-2024 ambulatory Jefferson Nathan MD Work Phone: [facility] [place] Comment on above: RSV (acute bronchiol itis due to respiratory syncytial virus) (Primary Dx); 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HCC); Acute respiratory failure with hypoxia (HCC); Paroxysmal A-fib (CMS/HCC) (HCC); Peritonitis due to fungus (HCC) Start: 12-11-2024 End: 12-11-2024 ambulatory Jefferson Nathan MD Work Phone: [facility] [place] [facility] Comment on above: RSV (acute bronchiol itis [...] surgery center Sydni Forrester CNP Work Phone: [facility] [place] Comment on above: Acute respiratory fa ilure with hypoxia (HCC) (Primary Dx); 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HCC); S/P AVR; Peritonitis due to fungus (HCC); ESRD on hemodialysis (CMS/HCC) (HCC); 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, 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); Anemia, unspecified type; History of abdominal surgery Start: 12-07-2024 End: 12-07-2024 ambulatory Sydni Forrester CNP Work Phone: [facility] [place] Start: 12-07-2024 End: 03-23-2025 [facility] hospital care/day 25 minutes Vincent Meek MD Work Phone: [facility] Comment on above: Acute respiratory fa ilure with hypoxia (HCC) (Primary Dx); Ventilator dependent (HCC); 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HCC); Pulmonary embolism, other, unspecified chronicity, unspecified whether acute cor pulmonale present (HCC); S/P AVR; ESRD on hemodialysis (CMS/HCC) (HCC) Start: 12-06-2024 End: 12-06-2024 Admission to same day surgery center Sydni Husain APRN - [employer] Work Phone: [facility] [place] Comment on above: Acute respiratory fa ilure with hypoxia (HCC) (Primary Dx); Tracheostomy dependence (HCC); S/P AVR; Peritonitis due to fungus (HCC); ESRD on hemodialysis (CMS/HCC) (HCC); 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, 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); History of abdominal surgery Start: 12-06-2024 End: 12-06-2024 ambulatory Sydni Husain FLOWER CHENILLER - Mobile Location, IP Work Phone: [facility] [place] Start: 12-06-2024 End: 03-23-2025 [facility] hospital care/day 25 minutes Vincent Meek MD Work Phone: [facility] [place] Comment on above: Acute respiratory fa ilure with hypoxia (HCC) (Primary Dx); Ventilator dependent (HCC); Tracheostomy dependence (HCC); Pulmonary embolism, other, unspecified chronicity, unspecified whether acute cor pulmonale present (HCC); S/P AVR; ESRD on hemodialysis ([facility]/HCC) (HCC) Start: 12-05-2024 End: 03-23-2025 [facility] hospital care/day 35 minutes Vincent Meek MD Work Phone: [facility] [place] Comment on above: Acute respiratory fa ilure with hypoxia (HCC) (Primary Dx); Tracheostomy dependence (HCC); Ventilator dependent (HCC); Pulmonary embolism, other, unspecified chronicity, unspecified whether acute cor pulmonale present (HCC); S/P AVR; ESRD on hemodialysis (CMS/HCC) (HCC) Start: 12-04-2024 End: 12-04-2024 Admission to same day surgery center Sydni Husain [employer] Work Phone: [facility] [place] Comment on above: Acute respiratory fa ilure with hypoxia (HCC) (Primary Dx); Tracheostomy dependence (HCC); S/P AVR; Peritonitis due to fungus (HCC); ESRD on hemodialysis (CMS/HCC) (HCC); 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, 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); History of abdominal surgery Start: 12-04-2024 End: 12-04-2024 ambulatory Sydni Husain APRN - [employer] Work Phone: [facility] [place] Comment on above: Atypical atrial flut ter (HCC) (Primary Dx) Start: 12-01-2024 End: 12-01-2024 Admission to same day surgery center Sydni Husain APRN [employer] Work Phone: [facility] [place] Comment on above: Acute respiratory fa ilure with hypoxia (HCC) (Primary Dx); Tracheostomy dependence (HCC); S/P AVR; Peritonitis due to fungus (HCC); ESRD on hemodialysis (CMS/HCC) (HCC); 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, 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); Leg DVT (deep venous thromboembolism), acute, left (HCC); History of abdominal surgery Start: 12-01-2024 End: 12-01-2024 ambulatory Jefferson Nathan MD Work Phone: [facility] Comment on above: Atypical atrial flut ter (HCC) (Primary Dx) Start: 12-01-2024 End: 12-01-2024 Patient encounter procedure Jefferson Nathan MD Work Phone: [facility] Comment on above: Acute respiratory fa ilure with hypoxia (HCC) (Primary Dx); Tracheostomy dependence (HCC); Ventilator dependent (HCC); Pulmonary embolism, other, unspecified chronicity, unspecified whether acute cor pulmonale present (HCC); S/P AVR Start: 11-30-2024 End: 11-30-2024 Admission to same day surgery center Sydni Husain APRN - [employer] Work Phone: [facility] [place] Comment on above: [...] 11-30-2024 End: 11-30-2024 ambulatory Sydni Husain APRN - [employer] Work Phone: [facility] [place] Comment on above: Acute respiratory fa ilure with hypoxia (HCC) (Primary Dx); Tracheostomy dependence (HCC); Ventilator dependent (HCC); Pulmonary embolism, other, unspecified chronicity, unspecified whether acute cor pulmonale present (HCC); S/P AVR; Tracheostomy dependent (HCC); Chronic bronchitis, unspecified chronic bronchitis type (HCC); ESRD on hemodialysis (CMS/HCC) (HCC) Start: 11-29-2024 End: 11-30-2024 Admission to same day surgery center Sydni Husain APRN - [employer] Work Phone: [facility] [place] Comment on above: Peritonitis due to f ungus (HCC) (Primary Dx); History of abdominal surgery; S/P AVR; 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, 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); Leg DVT (deep venous thromboembolism), acute, left (HCC); Anemia, unspecified type Start: 11-29-2024 End: 11-30-2024 ambulatory Jefferson Nathan MD Work Phone: [facility] Comment on above: Acute respiratory fa ilure with hypoxia (HCC) (Primary Dx); Atrial flutter, unspecified type (HCC); Pulmonary embolism, other, unspecified chronicity, unspecified whether acute cor pulmonale present (HCC); Ventilator dependent (HCC); Tracheostomy dependent (HCC); S/P AVR; Chronic bronchitis, unspecified chronic bronchitis type (HCC); ESRD on hemodialysis (CMS/HCC) (HCC) Start: 11-28-2024 End: 11-29-2024 Telephone encounter Jefferson Nathan MD Work Phone: [facility] [place] Comment on above: Advice Only Start: 10-22-2024 End: 10-22-20[facility] Start: 10-21-2024 End: 10-25-2024 [facility] Start: 10-16-2024 End: 10-16-2024 Telephone encounter Shira Dumont [employer] - [employer] Work Phone: [facility] [place] Comment on above: Care Coordination Start: 10-13-2024 End: 10-13-2024 Telephone encounter Lan Carpenter PA-C Work Phone: [facility] Start: 10-12-2024 End: 10-12-2024 Evaluation and management of inpatient Vincent Wilson MD Work Phone: [facility] Start: 10-03-2024 End: 10-03-2024 [facility] Start: 10-03-2024 End: 10-03-2024 Subsequent hospital visit by physician [facility] Exam Room [address] [facility] [address] Comment on above: Arrived Start: 10-03-2024 End: 11-28-2024 Evaluation and management of inpatient LEILANI TRONCOSO [facility] Start: 08-28-2024 End: 08-28-2024 ambulatory JR SHAH [facility] Start: 08-28-2024 End: 08-28-2024 Office outpatient visit 25 minutes Jr Shah MD Work Phone: [facility] Comment on above: Paroxysmal A-fib (CM S/HCC) (HCC) (Primary Dx); Nonrheumatic aortic valve stenosis; Tobacco abuse; Alcohol use disorder in remission Start: 05-10-2024 Chart abstracting Alan Barroso RN [facility] Comment on above: Dialysis status upda te Start: 04-12-2024 Telephone encounter [facility]ordin[facility] Work Phone: [facility] Start: 02-12-2024 Telephone encounter Jr Shah MD Work Phone: [facility] Central Scheduling Comment on above: unable to contact greg diop unable to contact greg diop to schedule Start: 11-12-2023 End: 11-12-2023 Office outpatient visit 25 minutes Quiana Contreras [employer] - [employer] Work Phone: [facility] Comment on above: Nonrheumatic aortic valve stenosis (Primary Dx); Paroxysmal A-fib (CMS/HCC) (HCC); Primary hypertension; Calcification of abdominal aorta (HCC); Tobacco abuse; ESRD on hemodialysis (CMS/HCC) (HCC) Start: 10-14-2023 Telephone encounter Sasha weeks [employer] - [employer] Work Phone: [facility] Comment on above: Cancelled Appointmen t Start: 09-07-2023 Transcribe Orders Fransisco toro [employer] Work Phone: [facility] Central Scheduling Comment on above: Personal history of nicotine dependence (Primary Dx); Nicotine dependence, cigarettes, uncomplicated Start: 08-18-2023 Telephone encounter Quiana forman [employer] - [employer] Work Phone: [facility] Start: 08-16-2023 End: 08-17-2023 Evaluation and management of inpatient Dangelo Horne Work Phone: [facility] ED Comment on above: New onset a-fib (CMS /HCC) (HCC) (Primary Dx); Atrial fibrillation, persistent (HCC) Start: 05-01-2023 End: 05-01-2023 Emergency department patient visit Jese Frank MD Work Phone: [facility] Comment on above: Skin sore (Primary D x); ESRD (end stage renal disease) on dialysis (HCC) Start: 12-30-2021 Telephone encounter Giovani mckee MD Work Phone: [facility] [place] Comment on above: Procedure please advise Start: 12-29-2021 ambulatory Shameem Santa Painter MD Work Phone: Ambulatory Surgery Start: 12-29-2021 Telephone encounter [facility]C [facility] on above: cecilia carlson Start: 12-25-2021 End: 12-25-2021 Patient encounter procedure [facility] Comment on above: Acute blood loss ane ruth (Primary Dx); Rectal bleeding Start: 09-15-2021 End: 09-15-2021 Subsequent hospital visit by physician Cindy Patel MD Work Phone: [facility] Cath & IR Lab Start: 10-17-2020 End: 10-17-2020 Subsequent hospital visit by physician Cindy Patel Work Phone: [facility] Start: 03-13-2020 End: 03-13-2020 Subsequent hospital visit by physician Lab [place] [facility] E[facility] Comment on above: Preoperative testing [Z01.818] Start: 10-19-2019 End: 10-27-2019 Evaluation and management of inpatient Callie Nieves DO Work Phone: [facility] Comment on above: Acute kidney injury (HCC) (Primary Dx); Uncontrolled hypertension; Normocytic anemia; Angioedema, initial encounter; Hyperkalemia; Metabolic acidosis; Rectal bleeding Procedures Date Procedure Procedure Detail Performing Clinician Start: 03-21-2025 Glucose quantitative blood xcpt reagent strip Anu Castro MD Work Phone: Start: 03-21-2025 Comprehensive metabo lic panel Barb Dawkins MD Work Phone: Start: 03-20-2025 Thromboplastin time partial plasma/whole blood Barb Dawkins MD Work Phone: Start: 03-20-2025 Thromboplastin time partial plasma/whole blood Barb Dawkins MD Work Phone: Start: 03-20-2025 Comprehensive metabo lic panel Barb Dawkins MD Work Phone: Start: 03-20-2025 Hepatitis b surf ant ibody hbsab Shell Montiel MD Work Phone: Start: 03-20-2025 Iaad ia hepatitis b surface antigen Shell Montiel MD Work Phone: Start: 03-19-2025 Thromboplastin time partial plasma/whole blood Barb Dawkins MD Work Phone: Start: 03-19-2025 Comprehensive metabo lic panel Barb Dawkins MD Work Phone: Start: 03-18-2025 Thromboplastin time partial plasma/whole blood Barb Dawkins MD Work Phone: Start: 03-18-2025 Thromboplastin time partial plasma/whole blood Barb Dawkins MD Work Phone: Start: 03-18-2025 Comprehensive metabo lic panel Barb Dawkins MD Work Phone: Start: 03-17-2025 Thromboplastin time partial plasma/whole blood Barb Dawkins MD Work Phone: Start: 03-17-2025 Thromboplastin time partial plasma/whole blood Barb Dawkins MD Work Phone: Start: 03-17-2025 Comprehensive metabo lic panel Barb Dawkins MD Work Phone: Start: 03-16-2025 Comprehensive metabo lic panel Barb Dawkins MD Work Phone: Start: 03-15-2025 Non-invasive physiol ogic study extremity 3 levls Rubi Sanon MD Work Phone: Start: 03-15-2025 Comprehensive metabo lic panel Barb Dawkins MD Work Phone: Start: 03-14-2025 Basic metabolic pane l calcium total Rubi Sanon MD Work Phone: Start: 03-14-2025 Lipid panel Rubi nichols MD Work Phone: Start: 03-14-2025 Lipid 1996 panel - S sonia or Plasma Keiry Solares MD Work Phone: Start: 03-13-2025 Ecg routine ecg w/le ast 12 lds trcg only w/o i&r Rubi Sanon MD Work Phone: Start: 03-13-2025 Assay of troponin quantitative Keiry Solares MD Work Phone: Start: 03-13-2025 Natriuretic peptide Jia amber Sanon MD Work Phone: Start: 03-13-2025 Assay of troponin quantitative Keiry Solares MD Work Phone: Start: 03-13-2025 Ct thorax w/o contra st material Keiry Solares MD Work Phone: Start: 03-13-2025 End: 03-13-2025 Comprehensive metabolic panel Keiry Solares MD Work Phone: Start: 03-13-2025 Radiologic exam ches t single view Keiry Solares MD Work Phone: Start: 03-13-2025 Blood gases any combination ph pco2 po2 co2 hco3 Keiry Solares MD Work Phone: Start: 03-13-2025 SARS-COV-2, FLU A/B, AND RSV COMBO Keiry Solares MD Work Phone: Start: 03-13-2025 Ecg routine ecg w/le ast 12 lds trcg only w/o i&r Keiry Solares MD Work Phone: Start: 03-05-2025 End: 03-05-2025 Basic metabolic panel [...] Start: 02-26-2025 Assay of troponin quantitative Rudolph Ibarra DO Work Phone: Start: 02-26-2025 Assay of troponin quantitative Rudolph J Fred DO Work Phone: Start: 02-25-2025 Prothrombin time [...] MD Work Phone: Start: 02-21-2025 Antibody screen JR SHAH Comment on above: Performed By: #### L [id number] ####Loss Prevention Associate: DOMENICA JARA ([phone])[facility] ([facility])[address] [place] [address] Start: 02-21-2025 C-reactive protein Karena Jett MD Work Phone: Start: 02-21-2025 Comprehensive metabo lic panel Bettye Pierre MD Work Phone: Start: 02-20-2025 Ct angiography chest w/contrast/noncontrast Mejyonisn Z Cuca DO Work Phone: Start: 02-20-2025 Basic metabolic pane l calcium total Mejyonisn Z Cuca DO Work Phone: Start: 02-14-2025 [...] Phone: Start: 01-28-2025 Blood count complete automated Yifanmatt Stewart DO Work Phone: Start: 01-27-2025 Thromboplastin [...] End: 01-26-2025 TRANSFUSE RED BLOOD CELLS Sangeeta Broo ks DO Start: 01-26-2025 Basic metabolic pane l [...] End: 01-25-2025 TRANSFUSE RED BLOOD CELLS Sangeeta Broo ks DO Start: 01-25-2025 Basic metabolic pane l calcium [...] 01-24-2025 Radiologic exam ches t single view Sangeetamk Reyes DO Start: 01-24-2025 Compatibility each u [...] donor frz w /in 8 hr Nils S Salh DO Work Phone: Start: 01-22-2025 End: 01-22-2025 TRANSFUSE FRESH FROZEN PLASMA Nils Boyle DO Work Phone: Start: 01-22-2025 Glucose quantitative blood xcpt reagent strip Darryn Higgins MD Work Phone: Start: 01-22-2025 Clotting factor viii multimetric analysis Sangetea Reyes DO Start: 01-22-2025 ACINETOBACTER SHIREEN NIKITA [...] Blood count complete automated Crystal D. Meranto [employer]ER - [employer] Work Phone: Start: 01-21-2025 Glucose quantitative blood [...] c ntrst mtrl w/wo cntrst img Japhekay Ogdenjonoharjit Perezelias DO Work Phone: Start: 01-20-2025 Blood count [...] History of abd ominal surgery Sydni Husain [employer]ER - [employer] Work Phone: Start: 10-12-2024 Insj non-tunneled ce ntral venous cath age 5 yr/> Rudolph German CRNA Start: 10-12-2024 NH AN CENTRAL LINE T RIPLE LUMEN Rudolph German PHOTOGRAMMETRIC STEREO COMPILER Start: 10-12-2024 NH AN ELECTIVE ENDOTRACHEAL AIRWAY Rudolph German PHOTOGRAMMETRIC STEREO COMPILER Start: 10-12-2024 Us vasc access sits vsl patency ndl entry Rudolph German PHOTOGRAMMETRIC STEREO COMPILER Start: 10-12-2024 ANESTHESIA ARTERIAL LINE PLACEMENT Rudolph German PHOTOGRAMMETRIC STEREO COMPILER Start: 10-03-2024 Ct head/brain w/o contrast material [...] vaccination due to patient refusal Sasha Lemons [employer] - [employer] Work Phone: Start: 08-17-2023 Echo tthrc r-t 2d w/wom-mode compl spec&colr d Earlene Irving MD Work Phone: Start: 08-17-2023 Thyrotropin [Units/volume] in Serum or Plasma Lan Carpenter PA-C Work Phone: Start: 08-17-2023 Basic metabolic pane l calcium total Earlene Irving MD Work Phone: Start: 08-16-2023 End: 08-16-2023 Basic metabolic panel calcium total Sha Quane PA-C Work Phone: Start: 08-16-2023 Radiologic exam ches t single view Sha Fieldsvre PA-C Work Phone: Start: 08-16-2023 Ecg routine ecg w/le ast 12 lds i&r only Dangelo Horne DO Work Phone: Start: 01-21-2021 Special treatments a nd procedures Cindy Patel Work Phone: Start: 03-13-2020 Ecg routine ecg w/le ast 12 lds trcg only w/o i&r [place] Provider Start: 03-13-2020 BASIC METABOLIC PNL Tati farooq (Bead Worker Sewing Auditing Manager) Zachary Work Phone: Start: 03-13-2020 CBC Darya (A prn Auditing Manager) Zachary Work Phone: Start: 03-13-2020 MDRD GFR Darya (A prn Auditing Manager) Zachary Work Phone: Start: 03-13-2020 PROTHROMBIN TIME/PT Tati farooq (Bead Worker Sewing Auditing Manager) Zachary Work Phone: Start: 10-27-2019 Basic metabolic pane l calcium total Darell Muñozodi DO Work Phone: Start: 10-26-2019 XA SPECIAL [...] Basic metabolic panel calcium total Delon Jessica FLOWER CHENILLER - [facility] Work Phone: Start: 10-22-2019 GLOMERULAR BASEMENT MEMBRANE (GBM) ANTIBODY IGG Randolph Liz MD Work Phone: Start: 10-21-2019 Radiologic exam abdo men 1 view Brett Encarnacion MD Work Phone: Start: 10-21-2019 End: 10-21-2019 Dup-scan artl shayan abdl/pel/scrot&/rpr orgn com Brett Encarnacion MD Work Phone: Start: 10-21-2019 Basic metabolic pane l calcium total Delon Jessica [employer] - [employer] Work Phone: Start: 10-20-2019 Basic metabolic pane l calcium total Brett Encarnacion MD Work Phone: Start: 10-20-2019 TRANSFUSE RED BLOOD CELLS Delon Jessica [employer] - [employer] Work Phone: Start: 10-20-2019 TRANSFUSE RED BLOOD CELLS Delon Jessica [employer] - [employer] Work Phone: Start: 10-20-2019 Blood count hemoglobin Delon Jessica [employer] - [employer] Work Phone: Start: 10-20-2019 Basic metabolic pane l calcium total Delon Jessica [employer] - [employer] Work Phone: Start: 10-20-2019 RBC morphology findi ng Nom (Bld) Delon Jessica [employer] - [employer] Work Phone: Start: 10-19-2019 Basic metabolic pane [...] Phone: Comment on above: Test Performed by [facility], [address] [place] [id number] Start: 10-19-2019 End: 10-19-2019 ADD ON LAB [...] History of abdom inal surgery Sydni Husain [employer] - [employer] Work Phone: H/O: surgery History of abdom inal surgery Sydni Husain [employer] - [employer] Work Phone: H/O: surgery History of abdom inal surgery Sydni Husain [employer] - [employer] Work Phone: H/O: surgery History of abdom inal surgery Sydni Husain [employer] - [employer] Work Phone: H/O: surgery History of abdom inal surgery Sydni Watson Rodrigue [employer] - [employer] Work Phone: H/O: surgery History of abdom inal surgery Sydni Watson Rodrigue [employer] - [employer] Work Phone: Vaccine refused by patient Missed vaccination due to patient refusal Palak Thurman DO Work Phone: Plan of Treatment Date Care Activity Detail Author Start: 2040 RSV Immunization for Adults (1 - 1-dose 75+ series) RSV Immunization for Adults (1 - 1-dose 75+ series) [facility] Start: 2040 [facility] Start: 01-24-2035 Screening for malignant neoplasm of colon [facility] Start: 03-14-2030 Lipid panel Lipid Panel [facility] Start: 03-21-2026 Creatinine measurement Creatinine Level [facility] Start: 03-21-2026 Potassium measurement Potassium Level [facility] Start: 03-13-2026 Screening for malignant neoplasm of lung Lung Cancer Screening [facility] Start: 03-05-2026 Creatinine measurement [facility] Start: 03-05-2026 Potassium measurement [facility] Start: 02-23-2026 Creatinine measurement Creatinine Level [facility] Start: 02-23-2026 Echocardiography Echocardiogram [facility] Start: 02-23-2026 Potassium measurement Potassium Level [facility] Start: 02-23-2026 [facility] Start: 02-12-2026 Creatinine measurement Creatinine Level [facility] Start: 02-12-2026 Potassium measurement Potassium Level [facility] Start: 02-01-2026 Creatinine measurement [facility] Start: 02-01-2026 Potassium measurement [facility] Start: 01-16-2026 Creatinine measurement Creatinine Level [facility] Start: 01-16-2026 Potassium measurement Potassium Level [facility] Start: 01-15-2026 Creatinine measurement Creatinine Level [facility] Start: 01-15-2026 Potassium measurement Potassium Level [facility] Start: 01-12-2026 Creatinine measurement Creatinine Level [facility] Start: 01-12-2026 Potassium measurement Potassium Level [facility] Start: 01-08-2026 Creatinine measurement Creatinine Level [facility] Start: 01-08-2026 Potassium measurement Potassium Level [facility] Start: 01-05-2026 Potassium measurement Potassium Level [facility] Start: 01-01-2026 Creatinine measurement Creatinine Level [facility] Start: 01-01-2026 Potassium measurement Potassium Level [facility] Start: 12-30-2025 Creatinine measurement Creatinine Level [facility] Start: 12-30-2025 Potassium measurement Potassium Level [facility] Start: 12-25-2025 Creatinine measurement Creatinine Level [facility] Start: 12-25-2025 Potassium measurement Potassium Level [facility] Start: 12-22-2025 Creatinine measurement Creatinine Level [facility] Start: 12-22-2025 Potassium measurement Potassium Level [facility] Start: 12-18-2025 Creatinine measurement Creatinine Level [facility] Start: 12-18-2025 Potassium measurement Potassium Level [facility] Start: 12-15-2025 Creatinine measurement Creatinine Level [facility] Start: 12-15-2025 Potassium measurement Potassium Level [facility] Start: 12-11-2025 Creatinine measurement Creatinine Level [facility] Start: 12-11-2025 Potassium measurement Potassium Level [facility] Start: 12-04-2025 Creatinine measurement Creatinine Level [facility] Start: 12-04-2025 Potassium measurement Potassium Level [facility] Start: 12-01-2025 Creatinine measurement Creatinine Level [facility] Start: 12-01-2025 Potassium measurement Potassium Level [facility] Start: 11-30-2025 Creatinine measurement Creatinine Level [facility] Start: 11-30-2025 Potassium measurement Potassium Level [facility] Start: 11-29-2025 Creatinine measurement Creatinine Level [facility] Start: 11-29-2025 Potassium measurement Potassium Level [facility] Start: 11-24-2025 Echocardiography Echocardiogram [facility] Start: 11-24-2025 [facility] Start: 2025 RSV Immunization aged 60 or older (1 - 1-dose 60+ series) RSV Immunization aged 60 or older (1 - 1-dose 60+ series) [facility] Start: 11-03-2025 Creatinine measurement Creatinine Level [facility] Start: 11-03-2025 Potassium measurement Potassium Level [facility] Start: 11-02-2025 Echocardiography Echocardiogram [facility] Start: 10-11-2025 Screening for malignant neoplasm of lung [facility] Start: 05-28-2025 Influenza vaccination Influenza Vaccine (Season Ended) [facility] Start: 05-28-2025 [facility] Start: 04-05-2025 End: 04-05-2025 ambulatory [facility] Start: 04-05-2025 End: 04-05-2025 Patient encounter procedure 04/05/2025 1:00 PM EDT Office Visit [facility] [address] [place] [address] Sophia Lara, FLOWER CH[employer]ER - [employer] [address] [place] [address] [facility] Start: 04-03-2025 End: 04-03-2025 ambulatory [facility] Start: 04-03-2025 End: 04-03-2025 Patient encounter procedure 04/03/2025 10:45 AM EDT Office Visit [facility] [address] [facility] [facility] [address] [place] [address] Zoe Valadez, FLOWER [employer]ER - [employer] [address] [facility] [place] [phone] [facility] Start: 03-26-2025 End: 02-23-2026 CT Chest WO contrast CT chest wo IV contrast Imaging Routine Hemoptysis Expected: 03/26/2025, Expires: 02/23/2026 [facility] Work Phone: Comment on above: Expected: 03/26/2025, Expires: Start: 02-15-2025 End: 02-15-2025 ambulatory [facility] Start: 02-15-2025 End: 02-15-2025 Patient encounter procedure [facility] Start: 02-14-2025 End: 02-14-2025 ambulatory [facility] [place] Start: 02-14-2025 End: 02-14-2025 Patient encounter procedure [facility] Start: 12-25-2024 End: 12-25-2024 Patient encounter procedure 12/25/2024 10:00 AM EDT Office Visit [facility] [address] [place] [address] Sophia Lara APRN - PANTS [employer]ER [address] [place] [address] [facility] Start: 12-18-2024 End: 12-18-2024 Telemedicine consultation with patient 12/18/2024 1:00 PM EDT Telemedicine [facility] [place] [address] [place] [id number] Osiris Terrell APRN - P[employer]ER [address] [place] [address] [facility] [place] Start: 10-09-2024 End: 10-09-2024 Patient encounter procedure 10/09/2024 3:00 PM EST Appointment [facility] [address] [facility] [address] [facility] [address] [place] [phone] Jr Shah MD [address] [facility] [address] [place] [address] [facility] [address] [facility] Start: 09-27-2024 Medicare Advantage Annual Wellness Visit Medicare Advantage Annual Wellness Visit [facility] Start: 09-27-2024 [facility] Start: 09-13-2024 End: 09-13-2024 Patient encounter procedure 09/13/2024 3:00 PM EST Appointment [facility] [address] [facility] [address] [place] [phone] rJ Shah MD [address] [facility] [address] [place] [address] [facility] [address] [facility] Start: 09-11-2024 End: 08-28-2026 US Heart Transthoracic Transthoracic echocardiogram (TTE) complete with contrast, bubble, strain, and 3D PRN CV Echocardiography Routine Nonrheumatic aortic valve stenosis Expected: 09/11/2024 (Approximate), Expires: 08/28/2026 [employer] Work Phone: Comment on above: Expected: 09/11/2024 (Approximate), Expi res: 08/28/2026 Start: 08-17-2024 Thyroid stimulating hormone measurement TSH Level [facility] Start: 05-28-2024 COVID-19 Vaccine () COVID-19 Vaccine () [facility] Start: 05-28-2024 Influenza vaccination [facility] Start: 05-28-2024 [facility] Start: 02-07-2024 End: 02-07-2024 Patient encounter procedure [facility] [place] Start: 11-29-2023 End: 11-29-2023 Patient encounter procedure 11/29/2023 3:00 PM EST Appointment [facility] [address] [place] [phone] Fransisco Pineda, [employer]OWER [employer]ER [address] [place] [address] [facility] Start: 11-24-2023 End: 11-24-2023 Patient encounter procedure 11/24/2023 1:30 PM EST Office Visit [facility] Dermatology [address] [facility] [address] [place] [address] Madhuri De La Rosa MD [address] [facility] [place] [address] [facility] D[facility] Start: 09-27-2023 Behavioral Health Screening Behavioral Health Screening [facility] Start: 09-27-2023 Medicare Advantage Annual Wellness Visit Medicare Advantage Annual Wellness Visit [facility] Start: 09-07-2023 End: 09-07-2024 CT Chest for screening WO contrast CT lung screening low dose Imaging Routine Nicotine dependence, cigarettes, uncomplicated Personal history of nicotine dependence Expected: 09/07/2023, Expires: 09/07/2024 [employer] Work Phone: Comment on above: Expected: 09/07/2023, Expires: Start: 05-28-2023 COVID-19 Vaccine ( season) COVID-19 Vaccine ( season) [facility] Start: 05-28-2023 Influenza vaccination Influenza Vaccine (#1) [facility] Start: 05-10-2023 DIABETES SCREEN DIABETES SCREEN [facility] Start: 05-10-2023 Diabetes Screening Diabetes Screening [facility] Start: 03-13-2023 DIABETES SCREEN DIABETES SCREEN [facility] Start: 05-28-2022 Influenza vaccination INFLUENZA (Season Ended) [facility] Start: 10-22-2021 End: 10-22-2021 Patient encounter procedure 10/22/2021 Office Visit Dermatology Madhuri De La Rosa MD [address] [facility] [place] [address] [facility] Start: 05-28-2021 Influenza vaccination [facility] Start: 05-20-2021 Hepatitis B Vaccines (1 of 1 - Risk Dialysis 4-dose series) Hepatitis B Vaccines (1 of 1 - Risk Dialysis 4-dose series) [facility] Start: 05-20-2021 [facility] Start: 05-10-2021 HEMOGLOBIN/HEMATOCRIT HEMOGLOBIN/HEMATOCRIT [facility] Start: 05-10-2021 SERUM CREATININE SERUM CREATININE [facility] Start: 12-08-2020 Annual Wellness Visit (AWV) Annual Wellness Visit (AWV) [facility] Start: 2020 PROSTATE CANCER SCREENING DISCUSSION PROSTATE CANCER SCREENING DISCUSSION [facility] Start: 2020 Prostate specific antigen measurement Prostate Cancer Screening Discussion [facility] Start: 11-12-2020 End: 11-12-2020 Office Visit 11/12/2020 Office Visit Dermatology Madhuri De La Rosa MD [address] [facility] [place] [address] Derm[facility] Start: 10-19-2020 Screening for malignant neoplasm of colon [facility] Start: 05-28-2020 Influenza vaccination [facility] Start: 05-28-2019 Influenza vaccination Flu vaccine (#1) [facility] Work Phone: Start: 2015 Screening for malignant neoplasm of colon Colon cancer screen colonoscopy [place], [place] Start: 2015 Shingles Vaccine (1 of 2) Shingles Vaccine (1 of 2) [facility] Start: 2015 SHINGRIX VACCINE (1 of 2) SHINGRIX VACCINE (1 of 2) [facility] Start: 2015 Tuberculosis screening COLORECTAL CANCER SCREENING,SEE MODIFIER [facility] Start: 2015 Zoster Vaccines (1 of 2) Zoster Vaccines (1 of 2) [facility] Start: 2015 [facility] Start: 2010 COLOGUARD (FIT-DNA) COLOGUARD (FIT-DNA) [facility] Start: 2010 Colonoscopy COLONOSCOPY [facility] Start: 2010 COLORECTAL CANCER SCREENING COLORECTAL CANCER SCREENING [facility] Start: [address] COLONOGRAPHY [facility] Start: 2010 FECAL OCCULT BLOOD FECAL OCCULT BLOOD [facility] Start: 2010 Screening for malignant neoplasm of colon [facility] Start: 2010 SIGMOIDOSCOPY SIGMOIDOSCOPY [facility] Start: 2005 Diabetes screen Diabetes screen [place], [place] Start: 2005 Lipid panel Lipid screen [facility] Start: 2000 Diabetes screen Diabetes screen [facility] Start: 2000 Lipid panel Lipid Screening [facility] Start: 2000 LIPID SCREEN LIPID SCREEN [facility] Start: 1984 DTaP/Tdap/Td vaccine (1 - Tdap) DTaP/Tdap/Td vaccine (1 - Tdap) [facility] Start: 1984 DTaP/Tdap/Td Vaccines (1 - Tdap) DTaP/Tdap/Td Vaccines (1 - Tdap) [facility] Start: 1984 Pneumococcal Vaccine: 50+ Years (1 of 2 - PCV) Pneumococcal Vaccine: 50+ Years (1 of 2 - PCV) [facility] Start: 1984 Urine microalbumin profile [facility] Start: 1984 [facility] Start: 1983 ANNUAL PCP TEAM CHRONIC DISEASE VISIT ANNUAL PCP TEAM CHRONIC DISEASE VISIT [facility] Start: 1983 Anxiety Screening Anxiety Screening [facility] Start: 1983 Depression Screening Depression Screening [facility] Start: 1983 Diabetes mellitus screening [facility] Start: 1983 HEPATITIS C SCREENING HEPATITIS C SCREENING [facility] Start: 1983 HIV SCREENING HIV SCREENING [facility] Start: 1983 HIV screening HIV Screening [facility] Start: 1977 Adult depression screening assessment DEPRESSION SCREENING [facility] Start: 1977 [facility] Start: 1971 Pneumococcal 0-64 years Vaccine (1 of 1 - PPSV23) Pneumococcal 0-64 years Vaccine (1 of 1 - PPSV23) [place], [place] Start: 1971 Pneumococcal 0-64 years Vaccine (1 of 2 - PPSV23) Pneumococcal 0-64 years Vaccine (1 of 2 - PPSV23) [facility] Start: 1971 Pneumococcal vaccination Pneumococcal Vaccine (1 of 2 - PCV) [facility] Start: 1971 Pneumococcal Vaccine: Pediatrics (0 to 5 Years) and At-Risk Patients (6 to 64 Years) (1 - PCV) Pneumococcal Vaccine: Pediatrics (0 to 5 Years) and At-Risk Patients (6 to 64 Years) (1 - PCV) [facility] Start: 1971 Pneumococcal Vaccine: Pediatrics (0 to 5 Years) and At-Risk Patients (6 to 64 Years) (1 of 2 - PCV) Pneumococcal Vaccine: Pediatrics (0 to 5 Years) and At-Risk Patients (6 to 64 Years) (1 of 2 - PCV) [facility] Start: 1970 COVID-19 Vaccine (1) COVID-19 Vaccine (1) [facility] Start: 1966 MMR Vaccines (1 of 1 - Standard series) MMR Vaccines (1 of 1 - Standard series) [facility] Start: 1966 [facility] Start: 05-17-1966 COVID-19 Vaccine (#1) COVID-19 Vaccine (#1) [facility] Start: 05-17-1966 Examination of skin Derm Melanoma Skin Check [facility] Start: 1965 Lipid panel [facility] Start: 1965 Medicare Advantage Annual Wellness Visit (AWV) Medicare Advantage Annual Wellness Visit (AWV) [facility] Start: 1965 Screening for malignant neoplasm of colon [facility] Basic metabolic 2000 panel - Serum or Plasma Basic Metabolic Panel Lab Routine Daily until discontinued starting 10/23/2019, 5 completed [employer] Work Phone: Comment on above: Daily until discontinued starting 2019, 5 completed CBC W Auto Different ial panel - Blood CBC Auto Differential Lab Routine Daily until discontinued starting 10/23/2019, 5 completed [employer] Work Phone: Comment on above: Daily until discontinued starting 2019, 5 completed End: 12-25-2022 COLONOSCOPY DIAGNOSTIC COLONOSCOPY DIAGNOSTIC Endoscopy Routine Acute blood loss anemia Rectal bleeding 1 Occurrences starting 12/25/2021 until 12/25/2022 [facility] Work Phone: Comment on above: 1 Occurrences starting 12/25/2021 until 12/25/2022 End: 12-30-2022 COLONOSCOPY DIAGNOSTIC COLONOSCOPY DIAGNOSTIC Endoscopy Routine Other iron deficiency anemia Rectal bleeding 1 Occurrences starting 12/30/2021 until 12/30/2022 [facility] Work Phone: Comment on above: 1 Occurrences starting 12/30/2021 until 12/30/2022 Electrocardiogram EKG BIC 2019 3:36 PM EDT [facility] End: 01-22-2025 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: End: 10-19-2019 Hemodialysis inpatient Hemodialysis inpatient Dialysis Routine One Time for 1 Occurrences starting 10/19/2019 until 10/19/2019 [employer] Work Phone: Comment on above: One Time for 1 Occurrences starting 09/28 until 10/19/2019 End: 10-21-2019 Hemodialysis inpatient Hemodialysis inpatient Dialysis Routine One Time for 1 Occurrences starting 10/21/2019 until 10/21/2019 [employer] Work Phone: Comment on above: One Time for 1 Occurrences starting 09/28 until 10/21/2019 End: 10-23-2019 Hemodialysis inpatient Hemodialysis inpatient Dialysis Routine One Time for 1 Occurrences starting 10/23/2019 until 10/23/2019 [employer] Work Phone: Comment on above: One Time for 1 Occurrences starting 09/28 until 10/23/2019 Hemodialysis inpatient Hemodialy sis inpatient Dialysis Routine Every MWF until discontinued starting 10/27/2019 [employer] Work Phone: Comment on above: Every MWF until discontinued starting End: 01-26-2025 Hemoglobin [Mass/volume] in Blood [facility] Work Phone: End: 02-21-2025 Legionella and Streptococcus Urine Antigen [facility] Work Phone: Magnesium [Mass/volu me] in Serum or Plasma MAGNESIUM Lab Routine Daily until discontinued starting 10/23/2019, 5 completed [facility] Work Phone: Comment on above: Daily until discontinued starting 2019, 5 completed End: 01-22-2025 Peripheral blood smear [facility] End: 01-22-2025 Peripheral Blood Smear [facility] Peripheral blood smear [facility] Peripheral Blood Smear [facility] Phosphate [Mass/volu me] in Serum or Plasma Phosphorus Lab Routine Daily until discontinued starting 10/23/2019, 5 completed [facility] Work Phone: Comment on above: Daily until discontinued starting 2019, 5 completed End: 09-15-2021 Special treatments and procedures [facility] Work Phone: Comment on above: Once for 1 Occurrences starting 09/15/20 until 09/15/2021 End: 10-26-2019 Surgical Pathology Surgical Pathology Lab STAT Once for 1 Occurrences starting 10/26/2019 until 10/26/2019 [facility] Work Phone: Comment on above: Once for 1 Occurrences starting 10/26/19 until 10/26/2019 Surgical Pathology Surgical Path ology Lab STAT 10/26/2019 10:00 AM EST [facility] Work Phone: End: 02-21-2025 Urine Hold Cup [facility] Immunizations Immunization Date Immunization Notes Care Provider [facility] 05-20-2020 hepatitis B vaccine, unspecified formulation Jese Frank MD Work Phone: [facility] 01-19-2020 hepatitis B vaccine, unspecified formulation Jese Frank MD Work Phone: [facility] 12-19-2019 hepatitis B vaccine, unspecified formulation Jese Frank MD Work Phone: [employer] 11-15-2019 hepatitis B vaccine, unspecified formulation Jese Frank MD Work Phone: [employer] Payers Date Payer Category Payer Self-pay 2023 Medicaid HMO [id number] 2023 Medicare HMO [id number] 2023 Medicare [id number] 2020 Medicaid [id number] 2020 Medicare [id number] 2020 Medicare [id number] 2020 Unknown [id number] 2020 Medicaid MEDICAID [facility] MEDICAID [id number] 2020-Present Medicaid [id number] 2019 Medicare MEDICARE MEDICAR E A AND B [id number] 2019-Present [place] Medicare [id number] Unknown [id number] Unknown [id number] Unknown [id number] Unknown [id number] Unknown [id number] Unknown [id number] Unknown [id number] Social History Date Type Detail Facility Start: 1993 End: 10-13-2024 Tobacco smoking status NVIS Current every day smoker [facility] Start: 1993 History of tobacco use Cigarette Smoker [employer] Work Phone: Start: 03-13-2020 End: 03-13-2025 Cigarettes smoked current (pack per day) - Reported [employer] Work Phone: Start: 03-13-2020 End: 10-13-2024 Tobacco use and exposure Never used [facility] Start: 03-13-2020 End: 08-16-2023 Alcohol intake Current drinker of alcohol (finding) [employer] Work Phone: Start: 1965 Sex Assigned At Not on file [employer] Work Phone: Start: 12-15-2021 End: 05-01-2023 Exposure to SARS-CoV-2 (event) Not sure [facility] Start: 10-19-2019 Alcohol Comment on weekends [employer] Work Phone: Start: 12-25-2021 End: 11-02-2024 Alcohol intake Ex-drinker (finding) [facility] Start: 1965 Sex Assigned At Male [facility] Start: 05-01-2023 End: 03-13-2025 Alcohol Use Disorder Identification Test - Consumption [AUDIT-C] [facility] How often to you hav e a drink containing alcohol? Never [facility] How many standard dr inks containing alcohol do you have on a typical day? Patient does not drink [facility] Start: 11-15-2020 Gender identity Identifies as male gender (finding) [facility] Start: 08-10-2020 Sexual orientation Heterosexual (finding) [facility] Start: 04-27-2022 Sex Male (finding) [facility] History of tobacco use Passive smoker [facility] Start: 10-13-2024 Tobacco Comment Started at 28, 3 PPD, tapered down to 1 PPD in 2020 after quitting drinking. 10/27/24 [facility] Tobacco smoking stat us NVIS Unknown if ever smoked [place] Work Phone: Start: 02-20-2025 Tobacco smoking status NHIS Ex-smoker [facility] Start: 1993 History of tobacco use Current smoker [facility] How often do you nee d to have someone help you when you read instructions, pamphlets, or other written material from your doctor or pharmacy [SILS] Sometimes [facility] [employer] threatened to shut off services in your home in past 12Mo No [facility] Do you feel stress - tense, restless, nervous, or anxious, or unable to sleep at night because your mind is troubled all the time - these days [OSQ] To some extent [facility] (I/We) worried wheth er (my/our) food would run out before (I/we) got money to buy more. Never true [facility] Medical Equipment Procedure Code Equipment Code Equipment Origin al Text Equipment Identifier Dates [id number] Start: 10-12-2024 [id number] Start: 10-09-2024 [id number] Start: 10-14-2024 [id number] Start: 10-14-2024 [id number] Start: 10-14-2024 [id number] Start: 10-14-2024 [id number][facility] Start: 10-14-2024 [id number] Start: 10-14-2024 [id number][facility] Start: 10-14-2024 [id number] Start: 11-03-2024 [id number] Start: 01-30-2025 Functional Status Date Assessment Result Facility 03-13-2025 Total score [AUDIT-C] 0 03/13/20 8:25 AM Karo Sultana RN [facility] Clinical Notes 10-24-2019 to 03-21-2025 Christopher Chen RN - 03/21/2025 5:33 PM EDTPjohn Chen RN - 03/21/2025 5:33 PM EDCarly Walls - 03/20/2025 12:22 PM Flip Lind RN - 03/19/2025 5:30 AM EDTDischarge Instructions Note Date & Type Note Facility 03-21-2025 Nurse Note Educated pt on importance of prescribed medications. Pt still refused. [facility] 03-21-2025 Nurse Note Educated pt on importance of prescribed medications. Pt still refused. Patient Name: Jun Snyder Patient : 1965 Acct: [id number] Date of Admission: 03/13/2025 Room[facility]Bed: [facility] A Code Status: Full Code Allergies: Allergies[1] Diagnosis: Problem List[2] Treatment: Hemodilaysis 2:1 Priority: Routine Location: Acute Room Diabetic: No NPO: No Isolation Precautions: Dialysis Consent for Treatment Verified: Yes Blood Consent Verified: Not Applicable ICEBOAT: Identify, Consent, Equipment, HepB Status, Orders Complete, Access Verified, Timeliness (o2 aqnd suction functional @ bedside) Second Clinician Verifying: Hector Pinto RN Time out performed prior to access at 1210. Report Received from Primary RN at 0915. Primary RN (First Initial, Last Name, Title): Alex Dobbins RN Incapacitated Nurse Education Completed: ws HBsAg ONLY: Date Drawn: February 24, 2025 [...] Condition/Temp Abdomen Inspection Bowel Sounds (All Quadrants) 03/20/25 0805 -- -- -- Clear;Diminished Ecchymosis;Red -- Soft;Nondistended Active 03/20/25 1206 Alert (0) Regular None (Room air) Clear;Diminished -- Warm;Dry Soft;Nondistended Active 03/20/25 1516 Alert (0) Regular -- -- -- -- -- -- Labs Lab Results Component Value Date/Time WBC 8.1 03/20/2025 0548 HGB 9.2 (L) 03/20/2025 0548 HGB 11.8 (L) 03/13/2025 0902 HCT 30.3 (L) 03/20/2025 0548 PLT 308 03/20/2025 0548 NA 136 03/20/2025 0548 K 5.3 (H) 03/20/2025 0548 CL 102 03/20/2025 0548 CO2 24 03/20/2025 0548 BUN 32 (H) 03/20/2025 0548 CREATININE 4.28 (H) 03/20/2025 0548 CREATININE 9.99 (H) 10/27/2019 0545 CALCIUM 9.1 03/20/2025 0548 PHOS 2.6 02/23/2025 0032 IV Drips and Rate/Dose Continuous Meds[3] Safety - Before each treatment: Dialysis Machine No.: [id number] RO Machine Number: [id number] Dialyzer Lot No.: [id number] Tubing Lot Number: [id number] [employer] Secure: Yes Venous Parameters Set: Yes Arterial Parameters Set: Yes NS Bag: Yes Saline Line Double Clamped: Yes Dialyzer: Nipro Prime Volume (mL): 200 mL RO Machine Number: [id number] RO Machine Log Sheet Completed: Yes Machine Alarm Self Test: Completed, Passed (03/20/25 1145) Air Foam Detector: Tested, Proper Function, pH Reading Extracorporeal Circuit Tested for Integrity: Yes Machine Conductivity: 13.8 Manual Conductivity: 13.8 Manual Ph: 7 Bleach Test (Neg): Yes Bath Temperature: 36 C (96.8 F) Conductivity Meter Serial #: [id number] Machine Functioning Alarm Free? Yes Dialysis Bath: K+ (Potassium): 2 Ca+ (Calcium): 2.5 Na+ (Sodium): 135 HCO3 (Bicarb): 35 Chlorine Testing - Before each treatment and every 4 hours: Time On: 1216 Time Off: 1516 Treatment Goal: 2L Weight Height: 177.8 cm (5' 10") (03/14/25 1617) Weight: 69.8 kg (153 lb 12.8 oz) (03/20/25421) BMI (Calculated): 22.07 (03/20/25421) 1st check: less than 0.1 ppm at: 1145 2nd check: less than 0.1 ppm at: 1445 3rd check: Not Applicable (if greater than 0.1 ppm, then check every 30 minutes from secondary) Access Flows and Pressures Patient Vitals for the past 8 hrs: Blood Flow Rate (mL/min) Ultrafiltration Rate (ml/hr) Arterial Pressure (mmHg) Venous Pressure (mmHg) TMP DFR Access Visible Intra-Hemodialysis Comments 03/20/25 1206 -- -- -- -- -- -- Yes pt aware of call light within reach and educated on use of call light 03/20/25 1216 200 mL/min 830 ml/hr -20 mmHg 70 mmHg 50 600 Yes tx iniated lines secured pt stable 03/20/25 1217 400 mL/min 830 ml/hr -40 mmHg 110 mmHg 60 600 Yes bfr increased 03/20/25 1232 400 mL/min 830 ml/hr -70 mmHg 150 mmHg 80 600 Yes Pt alert resting. Rmvd 213. Lines secure,. Call light in reach. 03/20/25 1245 400 mL/min 830 ml/hr -70 mmHg 190 mmHg 80 600 Yes pt resting, eyes closed. uf removed is 400 03/20/25 1300 400 mL/min 830 ml/hr -80 mmHg 190 mmHg 80 600 Yes pt stable resting lines secured call light in reach 603 uf removed 03/20/25 1316 400 mL/min 830 ml/hr -80 mmHg 180 mmHg 80 600 Yes Pt sleeping stable. Rmvd 807. 03/20/25 1330 400 mL/min 830 ml/hr -90 mmHg 180 mmHg 80 600 Yes Pt sleeping, stable rmvd 997. Lines secure. call light in reach. Uf on. 03/20/25 1345 400 mL/min 830 ml/hr -90 mmHg 180 mmHg 80 600 Yes Pt sleeping. Rmvd 1194. No changes. stable. 03/20/25 1400 400 mL/min 830 ml/hr -90 mmHg 180 mmHg 80 600 Yes Pt sleeping rmvd 1408. No changes. 03/20/25 1415 4010 mL/min 830 ml/hr -90 mmHg 180 mmHg 80 600 Yes Pt stable sleeping. Rmvd 1703. 03/20/25 1430 400 mL/min 830 ml/hr -90 mmHg 170 mmHg 80 600 Yes Pt sleeping rmvd 1826. 03/20/25 1439 -- -- -- -- -- -- Yes bicarb/acid jugs changed 13.7/6.8 03/20/25 1445 400 mL/min 830 ml/hr -90 mmHg 1701 mmHg 80 600 Yes pt stable 2013 uf removed 03/20/25 1500 400 mL/min 830 ml/hr -90 mmHg 170 mmHg 80 600 Yes pt stable 2258 uf removed 03/20/25 1516 -- -- -- -- -- -- Yes tx complete pt stable 2500 uf removed Vital Signs Patient Vitals for the past 24 hrs: BP Temp Temp src Pulse Resp SpO2 Weight 03/20/25 1523 143/78 -- -- 76 -- -- -- 03/20/25 1516 147/82 36.8 C (98.3 F) -- 76 16 100 % -- 03/20/25 1500 151/85 -- -- 77 -- -- -- 03/20/25 1445 142/81 -- -- 76 -- -- -- 03/20/25 1430 143/79 -- -- 75 -- -- -- 03/20/25 1415 146/81 -- -- 78 -- -- -- 03/20/25 1400 146/79 -- -- 78 -- -- -- 03/20/25 1345 158/85 -- -- 77 -- -- -- 03/20/25 1330 142/79 -- -- 78 -- -- -- 03/20/25 1316 140/77 -- -- 78 -- -- -- 03/20/25 1300 141/80 -- -- 76 -- -- -- 03/20/25 1245 145/84 -- -- 76 -- -- -- 03/20/25 1232 154/85 -- -- 76 -- -- -- 03/20/25 1217 139/75 -- -- 75 -- -- -- 03/20/25 1216 144/78 -- -- 77 -- -- -- 03/20/25 1206 153/87 36.9 C (98.5 F) -- 75 18 100 % -- 03/20/25 0807 130/84 36.4 C (97.6 F) Temporal 77 18 99 % -- 03/20/25 0422 -- -- -- -- -- -- 69.8 kg (153 lb 12.8 oz) 03/20/25 0419 141/75 36.7 C (98 F) Temporal 80 14 100 % -- 03/20/25 0137 125/78 36.6 C (97.9 F) Temporal 76 14 99 % -- Post-Dialysis Arterial Catheter Locking Solution: Not Applicable Venous Catheter Locking Solution: Not Applicable Post-Treatment Procedures: Blood returned, Access bleeding time < 10 minutes Machine Disinfection Process: Exterior Machine Disinfection Rinseback Volume (mL): 300 mL Total Liters Processed (L/min): 68.5 L/min Dialyzer Clearance: Lightly streaked Hemodialysis Intake (ml): 500 ml Hemodialysis Output (ml): 2500 ml NET Removed (ml): 2000 ml Tolerated Treatment: Good Patient Response to Treatment: stable Physician Notified: No Patient Disposition: Return to room Charge: $ IP Hemodialysis Charge: Hemodialysis Provider Notification Provider Notification Reason for Communication: Other (Comment) (to inform patient arrival from [place] [facility] room and need for orders) Provider Name: dr singam Provider Role: Attending physician Method of Communication: Secure chat Response: At bedside Provider Role: Attending physician Method of Communication: Secure chat Response: At bedside Handoff complete and report given to Primary RN at 1530. Primary RN (First Initial, Last Name, Title): Alex Dobbins RN Education Person Educated: Patient Knowledge Base: Minimal Barriers to Learning?: None Preferred method of Learning: Oral Topic(s): call light, Access Care, Signs and Symptoms of Infection, and Fluid Management Teaching Tools: Demonstration Response to Education: Verbalized Understanding [1] Allergies Allergen Reactions Lisinopril Swelling and Angioedema [2] Patient Active Problem List Diagnosis Anemia Paroxysmal A-fib ([facility]/HCC) ([facility]) HTN (hypertension) ESRD on hemodialysis ([facility]) ([facility]) IgA nephropathy determined by biopsy of kidney Diverticulosis Nonrheumatic aortic valve stenosis Calcification of abdominal aorta ([facility]) Missed vaccination due to patient refusal Tobacco abuse Alcohol use disorder in remission Atrial flutter, unspecified type ([facility]) RSV (acute bronchiolitis due to respiratory syncytial virus) Aortic stenosis Upper GI bleed S/P AVR Acute hypoxic respiratory failure ([facility]) Acute encephalopathy Pneumoperitoneum Gastric ulceration Severe malnutrition (CMS/HCC) ([facility]) Pleural effusion Peritonitis due to fungus ([facility]) History of abdominal surgery Leg DVT (deep venous thromboembolism), acute, left (HCC) 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, 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) Tracheostomy dependence ([facility]) Leukocytosis Decubitus ulcer of sacral region, unstageable ([facility]) Pneumonia of both lungs due to methicillin susceptible Staphylococcus aureus (MSSA) ([facility]) Sacral osteomyelitis ([facility]/HCC) ([facility]) Acute respiratory failure with hypoxia ([facility]) [J96.01] Tracheostomy care ([facility]) [Z43.0] 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[facility]) care home (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 Complication of tracheostomy ([facility]/HCC) ([facility]) BRBPR (bright red blood per rectum) Hemoptysis SOB (shortness of breath) Moderate malnutrition (CMS/HCC) ([facility]) [3] heparin, 5-30 Units/kg/hr, Last Rate: 20 Units/kg/hr (03/20/25 1328) Wound vac suction failing-pt requesting wound vac removed for now. Black foam dressing removed and wound packed with saline-soaked gauze covered with DSD Pt adamantly refusing telemetry at this time, ripped off monitor and threw to the floor Patient Name: Jun Snyder Patient : 1965 Acct: [id number] Date of Admission: 03/13/2025 [facility]: [facility] A Code Status: Full Code Allergies: Allergies[1] Diagnosis: Problem List[2] Treatment: Hemodilaysis 2:1 Priority: Routine Location: Acute Room Diabetic: No NPO: Yes Isolation Precautions: Dialysis Consent for Treatment Verified: Yes Blood Consent Verified: Not Applicable ICEBOAT: Identify, Consent, Equipment, HepB Status, Orders Complete, Access Verified, Timeliness (o2 and suction functional @ bedside) Second Clinician Verifying: Hector Hutchison RN Time out performed prior to access at 0836. Report Received from Primary RN at 0719. Primary RN (First Initial, Last Name, Title): Malick Henry Incapacitated Nurse Education Completed: ws HBsAg ONLY: Date Drawn: February 24, 2025 Results: Negative HBsAb: Date Drawn: February 24, 2025 Results: Susceptible <10 Order Dialyzer: Nipro Na+ Modeling: Not Applicable Dialysate Temperature (C): 36 Blood Flow Rate (BFR): 450 Dialysate Flow Rate (DFR): 600 Access to [...] Condition/Temp Abdomen Inspection Bowel Sounds (All Quadrants) 03/17/25 0800 -- -- -- Diminished Ecchymosis Dry;Warm Rounded -- 03/17/25 0830 Alert (0) Regular None (Room air) Clear;Diminished -- Warm;Dry Rounded Active 03/17/25 1141 Alert (0) Regular -- -- -- -- -- -- Labs Lab Results Component Value Date/Time WBC 6.7 03/17/2025 0047 HGB 10.0 (L) 03/17/2025 0047 HGB 11.8 (L) 03/13/2025 0902 HCT 33.8 (L) 03/17/2025 0047 PLT 407 03/17/2025 0047 NA 141 03/17/2025 0047 K 3.9 03/17/2025 0047 CL 104 03/17/2025 0047 CO2 25 03/17/2025 0047 BUN 22 03/17/2025 0047 CREATININE 3.25 (H) 03/17/2025 0047 CREATININE 9.99 (H) 10/27/2019 0545 CALCIUM 9.6 03/17/2025 0047 PHOS 2.6 02/23/2025 0032 IV Drips and Rate/Dose Continuous Meds[3] Safety - Before each treatment: Dialysis Machine No.: [id number] RO Machine Number: [id number] Dialyzer Lot No.: [id number] Tubing Lot Number: [id number] [employer] Secure: Yes Venous Parameters Set: Yes Arterial Parameters Set: Yes NS Bag: Yes Saline Line Double Clamped: Yes Dialyzer: Nipro Prime Volume (mL): 200 mL RO Machine Number: [id number] RO Machine Log Sheet Completed: Yes Machine Alarm Self Test: Completed, Passed (03/17/25 0803) Air Foam Detector: Tested, Proper Function, pH Reading Extracorporeal Circuit Tested for Integrity: Yes Machine Conductivity: 13.6 Manual Conductivity: 13.6 Manual Ph: 7 Bleach Test (Neg): Yes Bath Temperature: 36 C (96.8 F) Conductivity Meter Serial #: [id number] Machine Functioning Alarm Free? Yes Dialysis Bath: K+ (Potassium): 2 Ca+ (Calcium): 2.5 Na+ (Sodium): 135 HCO3 (Bicarb): 35 Chlorine Testing - Before each treatment and every 4 hours: Time On: 0841 Time Off: 1141 Treatment Goal: 2L Weight Height: 177.8 cm (5' 10") (03/14/25 1617) Weight: 64.4 kg (142 lb) (03/17/25536) BMI (Calculated): 20.37 (03/17/25536) 1st check: less than 0.1 ppm at: 0545 2nd check: less than 0.1 ppm at: 0845 3rd check: Not Applicable (if greater than 0.1 ppm, then check every 30 minutes from secondary) Access Flows and Pressures Patient Vitals for the past 8 hrs: Blood Flow Rate (mL/min) Ultrafiltration Rate (ml/hr) Arterial Pressure (mmHg) Venous Pressure (mmHg) TMP DFR Access Visible Intra-Hemodialysis Comments 03/17/25 0830 -- -- -- -- -- -- Yes pt aware of call light within reach and educated onuse of call light 03/17/25 0841 200 mL/min 830 ml/hr -20 mmHg 90 mmHg 70 600 Yes tx iniated lines secured pt stable 03/17/25 0843 450 mL/min 830 ml/hr -70 mmHg 160 mmHg 100 600 Yes bfr increased 03/17/25 0904 450 mL/min 830 ml/hr -130 mmHg 220 mmHg 100 600 Yes Pt stable resting. Rmvd 305. 03/17/25 0915 450 mL/min 830 ml/hr -140 mmHg 250 mmHg 100 600 Yes Pt stable resting. Rmvd 492. Watching tv. 03/17/25 0930 450 mL/min 830 ml/hr -140 mmHg 250 mmHg 90 600 Yes Pt stable rmvd 738. Sleeping. 03/17/25 0947 450 mL/min 830 ml/hr -150 mmHg 240 mmHg 100 600 Yes Pt stable rmvd 883. Pt on his phone. 03/17/25 1000 450 mL/min 830 ml/hr -160 mmHg 200 mmHg 100 600 Yes Pt sleeping. Lines secure. rmvd 1068. Stable. 03/17/25 1015 450 mL/min 830 ml/hr -140 mmHg 250 mmHg 100 600 Yes pt stable 1301 uf removed 03/17/25 1030 450 mL/min 840 ml/hr -150 mmHg 240 mmHg 100 600 Yes Pt stable rmvd 1495. sleeping. 03/17/25 1045 450 mL/min 840 ml/hr -150 mmHg 250 mmHg 100 600 Yes Pt stable rmvd 1782. Pt on his phone. 03/17/25 1100 450 mL/min 840 ml/hr -150 mmHg 250 mmHg 100 600 Yes Pt alert on phone. Lines secure. Rmvd 1939. 03/17/25 1115 450 mL/min 840 ml/hr -150 mmHg 250 mmHg 70 600 Yes Pt alert stable rmvd 2101. 03/17/25 1130 450 mL/min 840 ml/hr -160 mmHg 270 mmHg 100 600 Yes Pt alert on his phone. Rmvd 2328. 03/17/25 1141 -- -- -- -- -- -- Yes tx complete pt stable 2500 uf removed Vital Signs Patient Vitals for the past 24 hrs: BP Temp Temp src Pulse Resp SpO2 Weight 03/17/25 1227 130/81 (!) 22.5 C (72.5 F) Temporal 81 16 95 % -- 03/17/25 1200 120/77 -- -- 83 -- -- -- 03/17/25 1141 135/78 37.2 C (98.9 F) -- 81 16 100 % -- 03/17/25 1130 147/78 -- -- 80 -- -- -- 03/17/25 1115 119/87 -- -- 82 -- -- -- 03/17/25 1100 141/79 -- -- 83 -- -- -- 03/17/25 1045 151/83 -- -- 83 -- -- -- 03/17/25 1030 149/77 -- -- 82 -- -- -- 03/17/25 1015 145/78 -- -- 82 -- -- -- 03/17/25 1000 147/80 -- -- 79 -- -- -- 03/17/25 0947 138/86 -- -- 81 -- -- -- 03/17/25 0930 159/89 -- -- 81 -- -- -- 03/17/25 0915 132/90 -- -- 80 -- -- -- 03/17/25 0904 117/75 -- -- 79 -- -- -- 03/17/25 0843 131/78 -- -- 76 -- -- -- 03/17/25 0841 134/79 -- -- 77 -- -- -- 03/17/25 0830 143/89 37.3 C (99.2 F) -- 77 16 100 % -- 03/17/25 0739 135/83 36.1 C (97 F) Temporal 75 16 100 % -- 03/17/25 0537 -- -- -- -- -- -- 64.4 kg (142 lb) 03/17/25 0502 130/76 36.6 C (97.8 F) Temporal 77 18 100 % -- 03/16/25 1953 (!) 129/45 36.9 C (98.5 F) Temporal 78 18 100 % -- 03/16/25 1522 148/86 36.4 C (97.6 F) Temporal 85 18 100 % -- Post-Dialysis Arterial Catheter Locking Solution: Not Applicable Venous Catheter Locking Solution: Not Applicable Post-Treatment Procedures: Blood returned, Access bleeding time < 10 minutes Machine Disinfection Process: Exterior Machine Disinfection Rinseback Volume (mL): 300 mL Total Liters Processed (L/min): 75.6 L/min Dialyzer Clearance: Lightly streaked Hemodialysis Intake (ml): 500 ml Hemodialysis Output (ml): 2500 ml NET Removed (ml): 2000 ml Tolerated Treatment: Good Patient Response to Treatment: stable Physician Notified: No Patient Disposition: Return to room Charge: $ IP Hemodialysis Charge: Hemodialysis Provider Notification Provider Notification Reason for Communication: Other (Comment) (to inform patient arrival from [place] [facility] room and need for orders) Provider Name: dr sanon Provider Role: Attending physician Method of Communication: Secure chat Response: At bedside Provider Role: Attending physician Method of Communication: Secure chat Response: At bedside Handoff complete and report given to Primary RN at 1200. Primary RN (First Initial, Last Name, Title): Malick Henry RN Education Person Educated: Patient Knowledge Base: Minimal Barriers to Learning?: None Preferred method of Learning: Oral Topic(s): call light, Access Care, Signs and Symptoms of Infection, and Fluid Management Teaching Tools: Demonstration Response to Education: Verbalized Understanding [1] Allergies Allergen Reactions Lisinopril Swelling and Angioedema [2] Patient Active Problem List Diagnosis Anemia Paroxysmal A-fib (CMS/HCC) ([facility]) HTN (hypertension) ESRD on hemodialysis ([facility]/HCC) ([facility]) IgA nephropathy determined by biopsy of kidney Diverticulosis Nonrheumatic aortic valve stenosis Calcification of abdominal aorta ([facility]) Missed vaccination due to patient refusal Tobacco abuse Alcohol use disorder in remission Atrial flutter, unspecified type ([facility]) RSV (acute bronchiolitis due to respiratory syncytial virus) Aortic stenosis Upper GI bleed S/P AVR Acute hypoxic respiratory failure ([facility]) Acute encephalopathy Pneumoperitoneum Gastric ulceration Severe malnutrition (CMS/HCC) ([facility]) Pleural effusion Peritonitis due to fungus ([facility]) History of abdominal surgery Leg DVT (deep venous thromboembolism), acute, left ([facility]) 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, 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 of skin ([facility]) Tracheostomy dependence ([facility]) Leukocytosis Decubitus ulcer of sacral region, unstageable ([facility]) Pneumonia of both lungs due to methicillin susceptible Staphylococcus aureus (MSSA) ([facility]) Sacral osteomyelitis ([facility]/HCC) ([facility]) Acute respiratory failure with hypoxia ([facility]) [J96.01] Tracheostomy care ([facility]) [Z43.0] 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[facility]) care home (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 Complication of tracheostomy ([facility]) ([facility]) BRBPR (bright red blood per rectum) Hemoptysis SOB (shortness of breath) Moderate malnutrition ([facility]) ([facility]) [3] heparin, 5-30 Units/kg/hr Patient Name: Jun Snyder Patient : 1965 Acct: [id number] Date of Admission: 03/13/2025 Room[facility]Bed: [facility] A Code Status: Full Code Allergies: Allergies[1] Diagnosis: Problem List[2] Treatment: Hemodilaysis 2:1 Priority: Routine Location: Acute Room Diabetic: Yes NPO: No Isolation Precautions: None Consent for Treatment Verified: Yes Blood Consent Verified: Not Applicable ICEBOAT: Identify, Consent, Equipment, HepB Status, Orders Complete, Access Verified, Timeliness (O2 and wall suction bedside) Second Clinician Verifying: Prince Sawyer Time out performed prior to access at 1232. Report Received from Primary RN at 1000. Primary RN (First Initial, Last Name, Title): Britton Dobbins RN Incapacitated Nurse Education Completed: Chandana Sawyer RN HBsAg ONLY: Date Drawn: February 24, 2025 [...] N/A Date of Last Dressing Change: N/A [id number] [address]?: N/A Red Alcohol Caps in place?: N/A Gauze Dressing?: N/A Non-Dialysis Use?: No Comment: Flows: Good If access problem, who was notified: Pre and Post-Assessment Patient Vitals for the past 8 hrs: Level of Consciousness Oriented X Heart Rhythm O2 Device Bilateral Breath Sounds Skin Color Skin Condition/Temp Abdomen Inspection Bowel Sounds (All Quadrants) 03/15/25 0900 -- -- -- -- Clear;Diminished Ecchymosis;Red -- Soft;Nondistended Active 03/15/25 1231 Alert (0) 3 Regular Nasal cannula Clear Ecchymosis Warm;Dry Soft Active Labs Lab Results Component Value Date/Time WBC 6.7 03/15/2025 0434 HGB 9.2 (L) 03/15/2025 043 HGB 11.8 (L) 03/13/2025 0902 HCT 30.1 (L) 03/15/2025 043 PLT 392 03/15/2025 0434 NA 139 03/15/2025 0434 K 4.5 03/15/2025 0434 CL 100 03/15/2025 0434 CO2 28 03/15/2025 0434 BUN 30 (H) 03/15/2025 0434 CREATININE 3.13 (H) 03/15/2025 0434 CREATININE 9.99 (H) 10/27/2019 0545 CALCIUM 9.2 03/15/2025 0434 PHOS 2.6 02/23/2025 0032 IV Drips and Rate/Dose Continuous Meds[3] Safety - Before each treatment: Dialysis Machine No.: [id number] RO Machine Number: [id number] Dialyzer Lot No.: [id number] Tubing Lot Number: [id number] All Connections Secure: Yes Venous Parameters Set: Yes Arterial Parameters Set: Yes NS Bag: Yes Saline Line Double Clamped: Yes Dialyzer: Nipro Prime Volume (mL): 200 mL RO Machine Number: [id number] RO Machine Log Sheet Completed: Yes Machine Alarm Self Test: Completed, Passed (03/15/25 1215) Air Foam Detector: Tested, Proper Function, pH Reading Extracorporeal Circuit Tested for Integrity: Yes Machine Conductivity: 13.8 Manual Conductivity: 13.7 Manual Ph: 7 Bleach Test (Neg): Yes Bath Temperature: 36 C (96.8 F) Conductivity Meter Serial #: [id number] Machine Functioning Alarm Free? Yes Dialysis Bath: K+ (Potassium): 2 Ca+ (Calcium): 2.5 Na+ (Sodium): 135 HCO3 (Bicarb): 35 Chlorine Testing - Before each treatment and every 4 hours: Time On: 1237 Time Off: 1537 Treatment Goal: 1L Weight Height: 177.8 cm (5' 10") (03/14/25 1617) Weight: 65 kg (143 lb 4.8 oz) (03/15/25 0700) BMI (Calculated): 20.56 (03/15/25 0700) 1st check: less than 0.1 ppm at: 1145 2nd check: less than 0.1 ppm at: 1445 3rd check: Not Applicable (if greater than 0.1 ppm, then check every 30 minutes from secondary) Access Flows and Pressures Patient Vitals for the past 8 hrs: Blood Flow Rate (mL/min) Ultrafiltration Rate (ml/hr) Arterial Pressure (mmHg) Venous Pressure (mmHg) TMP DFR Access Visible Intra-Hemodialysis Comments 03/15/25 1237 200 mL/min 500 ml/hr 10 mmHg 80 mmHg 60 600 Yes Tx initiated call light within reach 03/15/25 1239 400 mL/min 500 ml/hr -60 mmHg 200 mmHg 90 600 Yes BFr increased 03/15/25 1245 400 mL/min 500 ml/hr -90 mmHg 220 mmHg 90 600 Yes pt stable sleeeping rmv 99 03/15/25 1300 400 mL/min 500 ml/hr -80 mmHg 230 mmHg 90 600 Yes pt resting rmv 206 03/15/25 1315 400 mL/min 500 ml/hr -120 mmHg 220 mmHg 90 600 Yes pt stable rmv 326 Vital Signs Patient Vitals for the past 24 hrs: BP Temp Temp src Pulse Resp SpO2 Height Weight 03/15/25 1315 139/89 -- -- 91 -- -- -- -- 03/15/25 1300 132/82 -- -- 102 -- -- -- -- 03/15/25 1245 128/88 -- -- 114 -- -- -- -- 03/15/25 1239 131/81 -- -- 102 -- -- -- -- 03/15/25 1237 130/91 -- -- 96 -- -- -- -- 03/15/25 1231 139/78 36.9 C (98.4 F) -- 108 18 99 % -- -- 03/15/25 1109 139/89 36.3 C (97.3 F) Temporal 101 16 99 % -- -- 03/15/25 0826 133/90 36.7 C (98.1 F) Temporal 112 16 97 % -- -- 03/15/25 0700 -- -- -- -- -- -- -- 65 kg (143 lb 4.8 oz) 03/15/25 0628 -- -- -- 114 -- -- -- -- 03/15/25 0229 122/86 36.4 C (97.5 F) Temporal 117 16 94 % -- -- 03/14/25 2320 131/86 36.2 C (97.1 F) Temporal 102 16 100 % -- -- 03/14/25 2135 136/90 36.4 C (97.5 F) Temporal 115 16 100 % -- -- 03/14/25 2128 136/90 -- -- 104 -- -- -- -- 03/14/25 1639 140/97 36.2 C (97.2 F) Temporal 109 16 100 % -- -- 03/14/25 1617 -- -- -- -- -- -- 1.778 m (5' 10") -- 03/14/25 1544 124/64 -- -- 104 -- -- -- -- 03/14/25 1537 121/71 36.8 C (98.2 F) -- 101 16 98 % -- -- 03/14/25 1530 132/77 -- -- 104 -- -- -- -- 03/14/25 1515 124/76 -- -- 104 -- -- -- -- 03/14/25 1500 131/80 -- -- 115 -- -- -- -- 03/14/25 1445 133/84 -- -- 116 -- -- -- -- 03/14/25 1430 133/70 -- -- 103 -- -- -- -- 03/14/25 1415 127/71 -- -- 104 -- -- -- -- 03/14/25 1400 134/74 -- -- 104 -- -- -- -- 03/14/25 1345 129/80 -- -- 112 -- -- -- -- 03/14/25 1330 149/83 -- -- 113 -- -- -- -- Post-Dialysis Arterial Catheter Locking Solution: Not Applicable Venous Catheter Locking Solution: Not Applicable Post-Treatment Procedures: Blood returned, Access bleeding time < 10 minutes Machine Disinfection Process: Exterior Machine Disinfection Rinseback Volume (mL): 300 mL Total Liters Processed (L/min): 76.1 L/min Dialyzer Clearance: Moderately streaked Hemodialysis Intake (ml): 500 ml Hemodialysis Output (ml): 1500 ml NET Removed (ml): 1000 ml Tolerated Treatment: Good Patient Response to Treatment: stable Physician Notified: No Patient Disposition: Return to room Charge: $ IP Hemodialysis Charge: Hemodialysis Provider Notification Provider Notification Reason for Communication: Other (Comment) (to inform patient arrival from [place] [facility] room and need for orders) Provider Name: dr sanon Provider Role: Attending physician Method of Communication: Secure chat Response: At bedside Provider Role: Attending physician Method of Communication: Secure chat Response: At bedside Handoff complete and report given to Primary RN at 1545. Primary RN (First Initial, Last Name, Title): Britton Dobbins RN Education Person Educated: Patient Knowledge Base: Substantial Barriers to Learning?: None Preferred method of Learning: Oral Topic(s): Call Light Education, Access Care, Signs and Symptoms of Infection, and Fluid Management Teaching Tools: Explanation Response to Education: Verbalized Understanding [1] Allergies Allergen Reactions Lisinopril Swelling and Angioedema [2] Patient Active Problem List Diagnosis Anemia Paroxysmal A-fib ([facility]) ([facility]) HTN (hypertension) ESRD on hemodialysis ([facility]) ([facility]) IgA nephropathy determined by biopsy of kidney Diverticulosis Nonrheumatic aortic valve stenosis Calcification of abdominal aorta ([facility]) Missed vaccination due to patient refusal Tobacco abuse Alcohol use disorder in remission Atrial flutter, unspecified type ([facility]) RSV (acute bronchiolitis due to respiratory syncytial virus) Aortic stenosis Upper GI bleed S/P AVR Acute hypoxic respiratory failure ([facility]) Acute encephalopathy Pneumoperitoneum Gastric ulceration Severe malnutrition ([facility]) ([facility]) Pleural effusion Peritonitis due to fungus ([facility]) History of abdominal surgery Leg DVT (deep venous thromboembolism), acute, left ([facility]) 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, 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 of skin ([facility]) Tracheostomy dependence ([facility]) Leukocytosis Decubitus ulcer of sacral region, unstageable ([facility]) Pneumonia of both lungs due to methicillin susceptible Staphylococcus aureus (MSSA) ([facility]) Sacral osteomyelitis ([facility]) ([facility]) Acute respiratory failure with hypoxia ([facility]) [J96.01] Tracheostomy care ([facility]) [Z43.0] 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[facility]) care home (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 Complication of tracheostomy ([facility]) ([facility]) BRBPR (bright red blood per rectum) Hemoptysis SOB (shortness of breath) Moderate malnutrition ([facility]) ([facility]) [3] Wound Care consulted for Pressure Injury Prevention. Pt's Kee score= 14 on 03/13 Pt's pressure points assessed. Pt's Heels, Back, Elbows, Occiput and ears all intact. [place] and healed area noted to occiput. Pt moving lower extremities well in bed against gravity. Pt currently followed by Wound WIRED MUSIC OPERATOR group for wounds to left toes 1-4 and sacrum with wound vac in place. For left toes, sacrum, and sacral wound vac assessments and treatment plan, please see Wound/Ostomy WIRED MUSIC OPERATOR progress notes. Instructed pt on pressure injury prevention and importance of turning/postioning every 2hrs while in bed and every 15 min while sitting in chair. Instructed on use and care of waffle chair cushion. Verbalized understanding. Prevention Measures in place, including: [place] sheet with pillows/wedges, Heels elevated off bed on pillows, Zinc/Moisture Barrier ointment (obtained), Waffle chair cushion (obtained for pt). Skin Care precaution order set in place. Dietitian consult order placed d/t wounds. PT/OT consult in place. Will continue to follow pt. Please Vocera for any questions or concerns. Yari Pelletier RN Patient Name: Jun Snyder Patient : 1965 Acct: [id number] Date of Admission: 03/13/2025 Room[facility]Bed: [facility] A Code Status: Full Code [...] Time out performed prior to access at 1232. Report Received from Primary RN at 1112. Primary RN (First Initial, Last Name, Title): Matt BARNES RN Incapacitated Nurse Education Completed: gemma hutchison rn HBsAg ONLY: Date Drawn: February 24, 2025 Results: Negative HBsAb: Date Drawn: February 24, 2025 Results: Susceptible <10 Order Dialyzer: Nipro Na+ Modeling: Not Applicable Dialysate Temperature (C): 36 Blood Flow Rate (BFR): 450 Dialysate Flow Rate (DFR): 600 Access to [...] Condition/Temp Abdomen Inspection Bowel Sounds (All Quadrants) 03/14/25 1227 Responds to voice (1) Regular Nasal cannula Diminished Warm;Dry Soft Active 03/14/25 1537 Alert (0) Regular -- -- -- -- -- Labs Lab Results Component Value Date/Time WBC 8.0 03/13/2025 0902 HGB 8.5 (L) 03/13/2025 0902 HGB 11.8 (L) 03/13/2025 0902 HCT 28.4 (L) 03/13/2025 0902 PLT 392 03/13/2025 0902 NA 141 03/14/2025 0507 K 5.2 (H) 03/14/2025 0507 CL 102 03/14/2025 0507 CO2 28 03/14/2025 0507 BUN 57 (H) 03/14/2025 0507 CREATININE 4.96 (H) 03/14/2025 0507 CREATININE 9.99 (H) 10/27/2019 0545 CALCIUM 10.1 03/14/2025 0507 PHOS 2.6 02/23/2025 0032 IV Drips and Rate/Dose Continuous Meds[3] Safety - Before each treatment: Dialysis Machine No.: [id number] Machine Number: [id number] Dialyzer Lot No.: [id number] Tubing Lot Number: [id number] All Connections Secure: Yes Venous Parameters Set: Yes Arterial Parameters Set: Yes NS Bag: Yes Saline Line Double Clamped: Yes Dialyzer: Nipro Prime Volume (mL): 200 mL RO Machine Number: [id number] RO Machine Log Sheet Completed: Yes Machine Alarm Self Test: Completed, Passed (03/14/25 1135) Air Foam Detector: Tested, Proper Function, pH Reading Extracorporeal Circuit Tested for Integrity: Yes Machine Conductivity: 13.7 Manual Conductivity: 13.6 Manual Ph: 7 Bleach Test (Neg): Yes Bath Temperature: 36 C (96.8 F) Conductivity Meter Serial #: [id number] Machine Functioning Alarm Free? Yes Dialysis Bath: K+ (Potassium): 3 Ca+ (Calcium): 2.5 Na+ (Sodium): 135 HCO3 (Bicarb): 35 Chlorine Testing - Before each treatment and every 4 hours: Time On: 1237 Time Off: 1537 Treatment Goal: 1L Weight Height: 177.8 cm (5' 10") (03/13/25 1654) Weight: 66.8 kg (147 lb 3.2 oz) (03/14/25 032) BMI (Calculated): 21.12 (03/14/25 032) 1st check: less than 0.1 ppm at: 1145 2nd check: less than 0.1 ppm at: 1445 3rd check: Not Applicable (if greater than 0.1 ppm, then check every 30 minutes from secondary) Access Flows and Pressures Patient Vitals for the past 8 hrs: Blood Flow Rate (mL/min) Ultrafiltration Rate (ml/hr) Arterial Pressure (mmHg) Venous Pressure (mmHg) TMP DFR Access Visible Intra-Hemodialysis Comments 03/14/25 1227 -- -- -- -- -- -- Yes pt aware of call light within reach and educated on use of call light 03/14/25 1237 200 mL/min 500 ml/hr -20 mmHg 80 mmHg 60 600 Yes tx iniated lines secured pt stable 03/14/25 1239 450 mL/min 500 ml/hr -120 mmHg 220 mmHg 80 600 Yes bfr increased 03/14/25 1245 450 mL/min 500 ml/hr -130 mmHg 240 mmHg 70 600 Yes pt moving around, cuff readjusted, RN @ bedside, 74 uf removed 03/14/25 1300 450 mL/min 500 ml/hr -140 mmHg 240 mmHg 80 600 Yes pt resting lines secured call light within reach 187 uf removed 03/14/25 1315 450 mL/min 500 ml/hr -150 mmHg 240 mmHg 70 600 Yes pt stable 301 uf removed 03/14/25 1330 450 mL/min 500 ml/hr -150 mmHg 150 mmHg 70 600 Yes pt alert, removed 438 03/14/25 1345 450 mL/min 500 ml/hr -150 mmHg 240 mmHg 60 600 Yes pt moving around in bed, removed 564 03/14/25 1400 450 mL/min 500 ml/hr -150 mmHg 230 mmHg 70 600 Yes pt alert, removed 685 03/14/25 1415 450 mL/min 500 ml/hr -140 mmHg 240 mmHg 60 600 Yes pt resting 806 uf removed 03/14/25 1430 450 mL/min 500 ml/hr -150 mmHg 230 mmHg 60 600 Yes pt stable 930 uf removed 03/14/25 1445 450 mL/min 500 ml/hr -150 mmHg 230 mmHg 60 600 Yes pt alert, removed 1055 03/14/25 1500 450 mL/min 500 ml/hr -150 mmHg 220 mmHg 50 600 Yes pt resting, liness ecure, removed 1184 03/14/25 1515 450 mL/min 500 ml/hr -150 mmHg 220 mmHg 40 600 Yes pt alert, linesecure, removed 1299 03/14/25 1530 450 mL/min 500 ml/hr -150 mmHg 210 mmHg 40 600 Yes pt alert, lines secure removed 1415 03/14/25 1537 -- -- -- -- -- -- Yes tx complete pt stable 1500 uf removed Vital Signs Patient Vitals for the past 24 hrs: BP Temp Temp src Pulse Resp SpO2 Height Weight 03/14/25 1544 124/64 -- -- 104 -- -- -- -- 03/14/25 1537 121/71 36.8 C (98.2 F) -- 101 16 98 % -- -- 03/14/25 1530 132/77 -- -- 104 -- -- -- -- 03/14/25 1515 124/76 -- -- 104 -- -- -- -- 03/14/25 1500 131/80 -- -- 115 -- -- -- -- 03/14/25 1445 133/84 -- -- 116 -- -- -- -- 03/14/25 1430 133/70 -- -- 103 -- -- -- -- 03/14/25 1415 127/71 -- -- 104 -- -- -- -- 03/14/25 1400 134/74 -- -- 104 -- -- -- -- 03/14/25 1345 129/80 -- -- 112 -- -- -- -- 03/14/25 1330 149/83 -- -- 113 -- -- -- -- 03/14/25 1315 136/82 -- -- 100 -- -- -- -- 03/14/25 1300 145/84 -- -- 105 -- -- -- -- 03/14/25 1245 136/84 -- -- 106 -- -- -- -- 03/14/25 1239 147/85 -- -- 106 -- -- -- -- 03/14/25 1237 150/90 -- -- 105 -- -- -- -- 03/14/25 1227 153/90 37.1 C (98.7 F) -- 107 16 98 % -- -- 03/14/25 1109 144/94 36.7 C (98 F) Temporal (!) 121 16 100 % -- -- 03/14/25 0734 (!) 147/102 36.3 C (97.4 F) Temporal (!) 122 16 100 % -- -- 03/14/25 0323 -- -- -- -- -- -- -- 66.8 kg (147 lb 3.2 oz) 03/14/25 0315 139/91 36.4 C (97.5 F) Temporal 115 20 99 % -- -- 03/13/25 2311 146/93 36.5 C (97.7 F) Temporal 112 19 100 % -- -- 03/13/251999 -- -- -- 110 -- -- -- -- 03/13/25 1957 144/94 36.3 C (97.4 F) Temporal 114 19 100 % -- -- 03/13/25 1654 141/93 36.3 C (97.3 F) Temporal 115 16 97 % 1.778 m (5' 10") -- Post-Dialysis Arterial Catheter Locking Solution: Not Applicable Venous Catheter Locking Solution: Not Applicable Post-Treatment Procedures: Blood returned, Access bleeding time < 10 minutes Machine Disinfection Process: Exterior Machine Disinfection Rinseback Volume (mL): 300 mL Total Liters Processed (L/min): 76.1 L/min Dialyzer Clearance: Moderately streaked Hemodialysis Intake (ml): 500 ml Hemodialysis Output (ml): 1500 ml NET Removed (ml): 1000 ml Tolerated Treatment: Good Patient Response to Treatment: stable Physician Notified: No Patient Disposition: Return to room Charge: $ IP Hemodialysis Charge: Hemodialysis Provider Notification Provider Notification Reason for Communication: Other (Comment) (to inform patient arrival from [place] emergency room and need for orders) Provider Name: dr sanon Provider Role: Attending physician Method of Communication: Secure chat Response: At bedside Provider Role: Attending physician Method of Communication: Secure chat Response: At bedside Handoff complete and report given to Primary RN at 1549. Primary RN (First Initial, Last Name, Title): Matt BARNES RN Education Person Educated: Patient Knowledge Base: Substantial Barriers to Learning?: None Preferred method of Learning: Oral Topic(s): call light, Access Care, Signs and Symptoms of Infection, Fluid Management, and Procedural Teaching Tools: Explanation Response to Education: Verbalized Understanding [1] Allergies Allergen Reactions Lisinopril Swelling and Angioedema [2] Patient Active Problem List Diagnosis Anemia Paroxysmal A-fib ([facility]) ([facility]) HTN (hypertension) ESRD on hemodialysis ([facility]) ([facility]) IgA nephropathy determined by biopsy of kidney Diverticulosis Nonrheumatic aortic valve stenosis Calcification of abdominal aorta ([facility]) Missed vaccination due to patient refusal Tobacco abuse Alcohol use disorder in remission Atrial flutter, unspecified type ([facility]) RSV (acute bronchiolitis due to respiratory syncytial virus) Aortic stenosis Upper GI bleed S/P AVR Acute hypoxic respiratory failure ([facility]) Acute encephalopathy Pneumoperitoneum Gastric ulceration Severe malnutrition ([facility]) ([facility]) Pleural effusion Peritonitis due to fungus ([facility]) History of abdominal surgery Leg DVT (deep venous thromboembolism), acute, left ([facility]) 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, 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) Tracheostomy dependence (HCC) Leukocytosis Decubitus ulcer of sacral region, unstageable (HCC) Pneumonia of both lungs due to methicillin susceptible Staphylococcus aureus (MSSA) (HCC) Sacral osteomyelitis (CMS/HCC) (HCC) Acute respiratory failure with hypoxia ([facility]) [J96.01] Tracheostomy care ([facility]) [Z43.0] 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HCC) care home (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 Complication of tracheostomy (CMS/HCC) ([facility]) BRBPR (bright red blood per rectum) Hemoptysis SOB (shortness of breath) [3] Removed wound vac that patient arrived to 5w from [facility] pictures of all wound taken on rover and saved to chart NSWto DSD applied to sacral wound documented in this encounter [facility] 03-21-2025 Note Formatting of this n ote might be different from the original. MAR, Labs & Discharge med list transmitted to [facility] via [facility] per [facility] request. [facility] 03-21-2025 Note Formatting of this n ote might be different from the original. MAR, Labs & Discharge med list transmitted to [facility] via [facility] per TCC request. [facility] 03-21-2025 Miscellaneous Notes Formattin g of this note might be different from the original. MAR, Labs & Discharge med list transmitted to [facility] via [facility] per TCC request. Transport requested in [employer]. Awaiting time confirmation. Confirmed pickup time of 5:00PM by transport company [employer] at phone number . Location of facility drop off is [facility]. Facility notified via [facility], Kaiyt Rivera notified on secure chat. Care Management Progress Note Short Medical why still here: Heparin gtt stopped today. . INR 2.9 today. Getting Coumadin. Refusing to work with therapy. They would like to skill him if able. Planned Discharge Disposition: Halfway/Residential Care Barriers/Today we still Wait: Administering IV medications, Test results (comment) Length of Stay (Days): 8 GMLOS: 3.9 Problem: Knowledge Deficit Goal: Patient/family/caregiver demonstrates understanding of disease process, treatment plan, medications, and discharge instructions Outcome: Progressing Problem: Potential for Compromised Skin Integrity Goal: Skin Integrity is Maintained or Improved Outcome: Progressing Goal: Nutritional status is improving Outcome: Progressing Problem: Urinary Incontinence Goal: Perineal skin integrity is maintained or improved Outcome: Progressing Problem: Problem Interventions Goal: Assess Nutritional Intake Outcome: Progressing Problem: Pain - Adult Goal: Verbalizes/displays adequate comfort level or baseline comfort level Outcome: Progressing Problem: Safety - Adult Goal: Free from fall injury Outcome: Progressing Problem: Discharge Planning Goal: Discharge to home or other facility with appropriate resources Outcome: Progressing Problem: Chronic Conditions and Co-morbidities Goal: Patient's chronic conditions and co-morbidity symptoms are monitored and maintained or improved Outcome: Progressing Care Management Progress Note Short Medical why still here: Heparin gtt bridging to Coumadin. INR 1.9 today Planned Discharge Disposition: Halfway/Residential Care Barriers/Today we still Wait: Clinical stability Length of Stay (Days): 7 GMLOS: 3.9 Problem: Knowledge Deficit Goal: Patient/family/caregiver demonstrates understanding of disease process, treatment plan, medications, and discharge instructions Outcome: Progressing Problem: Potential for Compromised Skin Integrity Goal: Skin Integrity is Maintained or Improved Outcome: Progressing Goal: Nutritional status is improving Outcome: Progressing Problem: Urinary Incontinence Goal: Perineal skin integrity is maintained or improved Outcome: Progressing Problem: Problem Interventions Goal: Assess Nutritional Intake Outcome: Progressing Problem: Pain - Adult Goal: Verbalizes/displays adequate comfort level or baseline comfort level Outcome: Progressing Problem: Safety - Adult Goal: Free from fall injury Outcome: Progressing Problem: Discharge Planning Goal: Discharge to home or other facility with appropriate resources Outcome: Progressing Problem: Chronic Conditions and Co-morbidities Goal: Patient's chronic conditions and co-morbidity symptoms are monitored and maintained or improved Outcome: Progressing Care Management Progress Note Continues on a Heparin gtt. Trying to bridge to Coumadin. INR 1.6 today. When stable plan is to return to [facility].. . Length of Stay (Days): 6 GMLOS: 3.9 Problem: Knowledge Deficit Goal: Patient/family/caregiver demonstrates understanding of disease process, treatment plan, medications, and discharge instructions Outcome: Progressing Problem: Potential for Compromised Skin Integrity Goal: Skin Integrity is Maintained or Improved Outcome: Progressing Goal: Nutritional status is improving Outcome: Progressing Problem: Urinary Incontinence Goal: Perineal skin integrity is maintained or improved Outcome: Progressing Problem: Problem Interventions Goal: Assess Nutritional Intake Outcome: Progressing Problem: Pain - Adult Goal: [...] improved Outcome: Progressing Problem: Problem Interventions Goal: Assess Nutritional Intake Outcome: Progressing Problem: Pain - Adult Goal: [...] and maintained or improved Outcome: Progressing Problem: Pain - Adult Goal: Verbalizes/displays adequate comfort level or baseline comfort level Outcome: Progressing Problem: Safety - Adult Goal: Free from fall injury Outcome: Progressing Problem: Knowledge Deficit Goal: Patient/family/caregiver demonstrates understanding of disease process, treatment plan, medications, and discharge instructions Outcome: Progressing Problem: Potential for Compromised Skin Integrity Goal: Skin Integrity is Maintained or Improved Outcome: Progressing Goal: Nutritional status is improving Outcome: Progressing Problem: Urinary Incontinence Goal: Perineal skin integrity is maintained or improved Outcome: Progressing Problem: Problem Interventions Goal: Assess Nutritional Intake Outcome: Progressing Problem: Pain - Adult Goal: [...] and maintained or improved Outcome: Progressing Problem: Pain - Adult Goal: Verbalizes/displays adequate comfort level or baseline comfort level Outcome: Progressing Problem: Safety - Adult Goal: Free from fall injury Outcome: Progressing Problem: Knowledge Deficit Goal: Patient/family/caregiver demonstrates understanding of disease process, treatment plan, medications, and discharge instructions Outcome: Progressing Problem: Potential for Compromised Skin Integrity Goal: Nutritional status is improving Outcome: Progressing Problem: Knowledge Deficit Goal: Patient/family/caregiver demonstrates understanding of disease process, treatment plan, medications, and discharge instructions Outcome: Progressing Problem: Potential for Compromised Skin Integrity Goal: Skin Integrity is Maintained or Improved Outcome: Progressing Goal: Nutritional status is improving Outcome: Progressing Problem: Urinary Incontinence Goal: Perineal skin integrity is maintained or improved Outcome: Progressing Problem: Problem Interventions Goal: Assess Nutritional Intake Outcome: Progressing Care Management Progress Note Going to dialysis today. Refusing surgery for gangrenous toes. Anticipate discharge back to [facility] soon. . Length of Stay (Days): 3 GMLOS: 3.9 SW reviewed chart. Copy of DPOA found in electronic chart naming son, Omar as agent. Care Management Return to Hospital Readmission questionnaire- N/A- pt form [facility]. Problem: Knowledge Deficit Goal: Patient/family/caregiver demonstrates understanding of disease process, treatment plan, medications, and discharge instructions Outcome: Progressing Problem: Potential for Compromised Skin Integrity Goal: Skin Integrity is Maintained or Improved Outcome: Progressing Goal: Nutritional status is improving Outcome: Progressing Problem: Urinary Incontinence Goal: Perineal skin integrity is maintained or improved Outcome: Progressing Problem: Problem Interventions Goal: Assess Nutritional Intake Outcome: Progressing Care Management Progress Note Cardiology following. Pt in A flutter, trying rate control. Has wound vac on sacral area. Pt is refusing surgery. When stable is a bed hold at [facility]. . Length of Stay (Days): 2 GMLOS: No GMLOS Documented Problem: Knowledge Deficit Goal: Patient/family/caregiver demonstrates understanding of disease process, treatment plan, medications, and discharge instructions Outcome: Progressing Problem: Problem Interventions Goal: Assess Nutritional Intake Outcome: Progressing Problem: Knowledge Deficit Goal: Patient/family/caregiver demonstrates understanding of disease process, treatment plan, medications, and discharge instructions Outcome: Progressing Problem: Potential for Compromised Skin Integrity Goal: Skin Integrity is Maintained or Improved Outcome: Progressing Goal: Nutritional status is improving Outcome: Progressing Problem: Urinary Incontinence Goal: Perineal skin integrity is maintained or improved Outcome: Progressing Problem: Problem Interventions Goal: Assess Nutritional Intake Outcome: Progressing Care Management Progress Note Pt was sent to ER from dialysis due to shortness of breath. Needs PVR of BLE. Nephrology, Vascular and therapies are following. Wants to return to [facility]. Is a bed hold, but if they can skill him they would like to.. Length of Stay (Days): 1 GMLOS: No GMLOS Documented Referral placed to [facility] Return - [facility] via [facility] per TCC request. Await review and response regarding ability to accept. [facility] notified. Problem: Knowledge Deficit Goal: Patient/family/caregiver demonstrates understanding of disease process, treatment plan, medications, and discharge instructions Outcome: Progressing Problem: Potential for Compromised Skin Integrity Goal: Skin Integrity is Maintained or Improved Outcome: Progressing documented in this encounter [facility] 03-21-2025 Note Formatting of this n ote might be different from the original. Transport requested in Roundtrip. Awaiting time confirmation. Confirmed pickup time of 5:00PM by transport [employer] at phone number . Location of facility drop off is [facility]. [facility], Kaity Rivera notified on secure chat. [facility] 03-21-2025 Note Formatting of this n ote might be different from the original. Transport requested in Roundtrip. Awaiting time confirmation. Confirmed pickup time of 5:00PM by transport [employer] [facility] Mitchell at phone number . Location of facility drop off is [facility]. Facility notified via [facility], Kaity Rivera notified on secure chat. [facility] 03-21-2025 Note [facility] 03-21-2025 Hospital course Narrative Discharge Summary Jun Snyder : 1965 ADMIT DATE: 03/13/2025 DISCHARGE DATE: 03/21/2025 PRIMARY CARE PHYSICIAN: Leilani Troncoso VISIT STATUS: Admission CODE STATUS: Full Code DISCHARGE DIAGNOSES: Acute, acute on chronic, unstable/uncontrolled chronic problems/diagnoses: Shortness of breath likely due to fluid overload A-fib/flutter Congestive heart failure with possible acute exacerbation ESRD on HD Sacral wound present on admission-stage IV Subtherapeutic INR: now therapeutic Dry gangrene on toes 1-4 left lower extremity 8. Moderate malnutrition Stable chronic problems affecting care, new non-acute diagnoses: Recent Klebsiella pneumonia with lung abscess S/p mechanical valve replacement on Coumadin IgA nephropathy Hypertension History of CAD, CABG History of intracranial hemorrhage HOSPITAL COURSE: Jun is a 59 y.o. male with past medical history of hypertension, IgA nephropathy, ESRD on HD, CAD, history of CABG, history of intracranial bleed, paroxysmal A-fib aortic stenosis, s/p mechanical valve replacement recent admission here from 02/20-03/05 for hemoptysis due to Klebsiella pneumonia with lung abscess presented to [facility] with worsening shortness of breath. He went to dialysis on 03/13, but was sent to ED due to worsening shortness of breath. Workup in the emergency department showed chest x-ray with volume overload, elevated BNP and troponin, EKG showed atrial flutter. Patient was admitted to hospital and nephrology, cardiology were consulted. - Patient was admitted to hospital for further evaluation of shortness of breath. Chest x-ray suggest pulmonary edema. Has a history of heart failure as well as end-stage renal disease. Nephrology consulted and patients volume overload will be managed with dialysis and ultrafiltration. Last dialysis was on yesterday , - Patient seen by cardiology due to concern for acute heart failure. Was found to be in atrial flutter. Failed previous DCCV and amiodarone in the past. Cardiology recommended rate control measures. Heart rates have been stable on vitals review. Volume management with dialysis, continue rate control, anticoagulation with heparin drip bridge back to Coumadin. -Wound care is consulted for sacral wound as well as gangrenous toes. Patient was seen by vascular surgery in consultation due to gangrenous toes, recommended for TMA, however patient is refusing any surgery at this time. -Due to mechanical heart valve patient is on Coumadin, he is currently on heparin drip due to subtherapeutic INR. Continue titration to goal INR 2-3 -INR 2.9 can stop Hep gtt. SIGNIFICANT DIAGNOSTIC STUDIES: Impression: CT chest 1. Congestive heart failure with mild interstitial pulmonary edema and small pleural effusions. 2. Mild thoracic lymphadenopathy, most likely reactive. 3. No acute lung consolidation. Multifocal areas of irregular pulmonary fibrosis are unchanged. 4. New ascites, omental edema and nodularity in the upper abdomen. CONSULTANTS: Nephrology Cardiology Vascular surgery RECOMMENDED NEXT STEPS: Continue medications as below Follow-up with PCP in 1 week Continue dialysis as previously scheduled Follow-up with vascular surgery in regards to gangrenous foot if progresses further DISCHARGE MEDICATIONS: Medication List CONTINUE taking these medications ipratropium-albuterol 0.5-2.5 mg/3 mL nebulizer solution Commonly known as: Duo-Neb Lidocaine 4 % patch Apply 1 patch topically daily. melatonin 3 MG tablet metoprolol tartrate 25 MG tablet Commonly known as: Lopressor Take 1 tablet (25 mg) by mouth 2 times daily. pantoprazole 40 MG EC tablet Commonly known as: ProtoNix Take 1 tablet (40 mg) by mouth 2 times daily (before meals). Do not crush, chew, or split. sevelamer carbonate 800 MG tablet Commonly known as: Renvela Take 1 tablet (800 mg) by mouth 3 times daily (with meals). Swallow tablet whole; do not crush, break, or chew. sodium zirconium cyclosilicate 5 g packet Commonly known as: Lokelma warfarin 1 MG tablet Commonly known as: Coumadin Take as directed. If you are unsure how to take this medication, talk to your nurse or doctor. Original instructions: Take as directed per After Visit Summary. STOP taking these medications acetaminophen 325 MG tablet Commonly known as: Tylenol amoxicillin-clavulanate 500-125 MG tablet Commonly known as: Augmentin B complex-vitamin C-folic acid 1 MG tablet bisacodyl 10 MG suppository Commonly known as: Dulcolax bisacodyl 5 MG EC tablet Commonly known as: Dulcolax magnesium hydroxide 800 MG/5ML suspension Commonly known as: Milk of Magnesia naloxone in sodium chloride (PF) injection injection QUEtiapine 25 MG tablet Commonly known as: SEROquel DIET: Adult diet Regular; Low Sodium (2 gm) ACTIVITY: Up with assist COMPLEXITY OF FOLLOW UP: [] Moderate Complexity: follow up within 7-14 calendar days (05032) [x] Severe Complexity: follow up within 7 calendar days (10538) FOLLOW UP TESTING, PENDING RESULTS OR REFERRALS AT TRANSITIONAL CARE VISIT: [] Yes [x] No PENDING STUDIES: None DISPOSITION: [facility] Care Facility (Non-Skilled) FACILITY/HOME CARE AGENCY NAME: [facility] Follow up with Leilani [address] [facility] [id number] Follow up INSTRUCTIONS TO MA/SW: Please call patient on [...] within the above time frame. DISCHARGE TIME: 32 minutes SIGNED: Anu Castro MD 03/21/2025, 12:07 PM documented in this encounter [facility] 03-21-2025 History of Presen t illness Narrative Patient quit smoking in September. Accepting of handout with contact information for additional support to remain quit if neccesary. Hospitalist Progress Note Subjective: Admit Date: 03/13/2025 PCP: Leilani Troncoso Room#: [id number] A Chief complaint: Shortness of breath Brief Hospital course: Jun is a 59 y.o. male with past medical history of hypertension, IgA nephropathy, ESRD on HD, CAD, history of CABG, history of intracranial bleed, paroxysmal A-fib aortic stenosis, s/p mechanical valve replacement recent admission here from 02/20-03/05 for hemoptysis due to Klebsiella pneumonia with lung abscess presented to [facility] ED with worsening shortness of breath. He went to dialysis on 03/13, but was sent to ED due to worsening shortness of breath. Workup in the emergency department showed chest x-ray with volume overload, elevated BNP and troponin, EKG showed atrial flutter. Patient was admitted to hospital and nephrology, cardiology were consulted. Cardiology recommended rate control measures for atrial flutter, previously failing DCCV and amiodarone in the past. Nephrology managing dialysis with ultrafiltration for volume overload. Patient was also noted to have gangrenous left toes. Seen by vascular surgery in consultation who recommended TMA, patient is refusing any type of surgery. Patient has a sacral decubitus ulcer stage IV present on admission as well. Interval History: 03/20 -patient seen in dialysis, resting comfortably, no complaints 03/21-patient is feeling fairly well, has no complaints, really wants to discharge today. Past Medical History: Medical History[1] Adult diet Regular; Low Sodium (2 gm) 24HR INTAKE/OUTPUT: Intake/Output Summary (Last 24 hours) at 03/21/2025 0908 Last data filed at 03/20/2025 1523 Gross per 24 hour Intake 300 ml Output -- Net 300 ml LABS: CBC: Recent Labs 03/19/25 0752 03/20/25 0548 03/21/25 0624 WBC 7.8 8.1 8.0 RBC 2.98* 3.00* 2.91* HGB 8.9* 9.2* 8.8* HCT 30.4* 30.3* 29.2* MCV 102.0* 101.0* 100.3* RDW 20.8* 20.2* 19.9* PLT 320 308 271 BMP: Recent Labs 03/19/25 0752 03/20/25 0548 03/21/25 06 NA 137 136 134* K 4.0 5.3* 5.0 CL 102 102 99 CO2 27 24 27 BUN 24* 32* 24* CREATININE 3.67* 4.28* 3.36* GLUCOSE 85 91 91 CALCIUM 9.0 9.1 9.0 ANIONGAP 8 10 8 LIVER PROFILE: Recent Labs 03/19/25 0752 03/20/25 0548 03/21/25 06 AST 52* 46* 59* ALT 14 13 13 BILITOT 0.9 0.8 0.9 ALKPHOS 221* 194* 217* PROT 7.4 7.3 7.2 PT/INR: Recent Labs 03/19/25 0752 03/20/25 0548 03/21/25 06 PROTIME 17.0* 19.1* 29.0* INR 1.6* 1.9* 2.9* CARDIAC ENZYMES: No results for input(s): "TROPONINI" in the last 72 hours. Procalcitonin: No results found for: "PROCAL" COVID-19 PCR: No results for input(s): "COVID19" in the last 72 hours. Objective: Vitals: BP 135/74 (BP Location: Right arm, Patient Position: Sitting) Pulse 75 Temp 36.1 C (97 F) (Temporal) Resp 16 Ht 5' 10" (1.778 m) Wt 155 lb (70.3 kg) SpO2 97% BMI 22.24 kg/m Pulse Ox: SpO2 Av.2 % Min: 97 % Max: 100 % Supplemental O2: O2 Flow Rate (L/min): 5 L/min Physical Exam HENT: Head: Normocephalic and atraumatic. Cardiovascular: Rate and Rhythm: Normal rate and regular rhythm. Heart sounds: Normal heart sounds. No murmur heard. Pulmonary: Effort: Pulmonary effort is normal. Breath sounds: Normal breath sounds. Comments: Decreased BS at bases Abdominal: Palpations: Abdomen is soft. Musculoskeletal: Comments: Sacral wound with wound VAC, gangrenous toes noted on first 4 toes on left lower extremity Neurological: Mental Status: He is alert. Medications: Scheduled PRN Scheduled Meds[2] PRN Meds[3] Continuous Continuous Meds[4] Assessment Data: 1 specialty note reviewed, 2 labs reviewed Acute, acute on chronic, unstable/uncontrolled chronic problems/diagnoses: Shortness of breath likely due to fluid overload A-fib/flutter Congestive heart failure with possible acute exacerbation ESRD on HD Sacral wound present on admission-stage IV Subtherapeutic INR: now therapeutic Dry gangrene on toes 1-4 left lower extremity 8. Moderate malnutrition Stable chronic problems affecting care, new non-acute diagnoses: Recent Klebsiella pneumonia with lung abscess S/p mechanical valve replacement on Coumadin IgA nephropathy Hypertension History of CAD, CABG History of intracranial hemorrhage Medical History[5] Plan As a result of the above findings & factors, the following mgmt was pursued: - Patient was admitted to hospital for further evaluation of shortness of breath. Chest x-ray suggest pulmonary edema. Has a history of heart failure as well as end-stage renal disease. Nephrology consulted and patients volume overload will be managed with dialysis and ultrafiltration. Last dialysis was on yesterday , - Patient seen by cardiology due to concern for acute heart failure. Was found to be in atrial flutter. Failed previous DCCV and amiodarone in the past. Cardiology recommended rate control measures. Heart rates have been stable on vitals review. Volume management with dialysis, continue rate control, anticoagulation with heparin drip bridge back to Coumadin. -Wound care is consulted for sacral wound as well as gangrenous toes. Patient was seen by vascular surgery in consultation due to gangrenous toes, recommended for TMA, however patient is refusing any surgery at this time. -Due to mechanical heart valve patient is on Coumadin, he is currently on heparin drip due to subtherapeutic INR. Continue titration to goal INR 2-3 -INR 2.9 can stop Hep gtt. - PT/OT recommends SNF - am labs, replace lytes prn - PT/OT/CM/SW - delirium precautions: increase activity, limit nighttime disturbances, and avoid anticholinergic meds, benzos, etc - DVT prophylaxis: SCDs and encourage ambulation Advance Directive: Full Code Anticipated Discharge - Date -0-1 days - Location -SNF - Pending the following - Extended Emergency Contact Information Primary Emergency Contact: Omar Snyder Mobile Relation: Child Secondary Emergency Contact: Toma Mcneil Mobile Relation: Partner Anu Castro MD Division of Hospital Medicine Inpatient Medical Services/[facility] [1] Past Medical History: Diagnosis Date Acute renal failure (ARF) ([facility]) 10/19/2019 Anemia 12/30/2021 Calcification of abdominal aorta ([facility]) 10/08/202309/[address] abd Diverticulosis 10/08/2023 ESRD on hemodialysis ([facility] ([facility]) 10/26/2019 Hemodialysis patient ([facility]) ([facility]) HTN (hypertension) 12/01/2022 Hypertension IgA nephropathy IgA nephropathy determined by biopsy of kidney 10/26/2019 Missed vaccination due to patient refusal 10/08/2023 Has a number of non-scientific based beliefs which interfere with his understanding and acceptance of the medical benefit of vaccination. Nonrheumatic aortic valve stenosis 10/08/2023 Paroxysmal A-fib ([facility]) ([facility]) 08/18/2023 Tobacco abuse 10/08/2023 [2] Lidocaine, 1 patch, Topical, Daily metoprolol tartrate, 50 mg, Oral, BID pantoprazole, 40 mg, Oral, BID AC sevelamer carbonate, 800 mg, Oral, TID WC sodium zirconium cyclosilicate, 5 g, Oral, Daily warfarin, 4 mg, Oral, Once [3] PRN medications: acetaminophen OR acetaminophen, heparin, heparin, ipratropium-albuterol, melatonin, ondansetron ODT OR ondansetron, polyethylene glycol (PEG) 3350 [4] heparin, 5-30 Units/kg/hr, Last Rate: 20 Units/kg/hr (03/21/25 0737) [5] Past Medical History: Diagnosis Date Acute renal failure (ARF) ([facility]) 10/19/2019 Anemia 12/30/2021 Calcification of abdominal aorta ([facility]) 10/08/202309/[address] abd Diverticulosis 10/08/2023 ESRD on hemodialysis ([facility]) ([facility]) 10/26/2019 Hemodialysis patient ([facility]) ([facility]) HTN (hypertension) 12/01/2022 Hypertension IgA nephropathy IgA nephropathy determined by biopsy of kidney 10/26/2019 Missed vaccination due to patient refusal 10/08/2023 Has a number of non-scientific based beliefs which interfere with his understanding and acceptance of the medical benefit of vaccination. Nonrheumatic aortic valve stenosis 10/08/2023 Paroxysmal A-fib ([facility]) ([facility]) 08/18/2023 Tobacco abuse 10/08/2023 Images from the original note were not included. PHYSICAL THERAPY [facility] Name/MRN: Jair Snyder ([id number]) Date: 03/21/2025 Chart review completed this date. PT attempted. Pt side-lying. Declined therapy at this time. States he is waiting for the wound nurse to come tell him when he "can leave this f----- place." Max encouragement provided. Multiple options for therapy participation provided. Pt stated "just leave me the f--- alone." PT will continue to follow. Will re-attempt another time/date as schedule permits. Cecy Pierre PTA Cosigned by Darryn Tay PT at 03/21/2025 2:58 PM EDT [facility] Anticoagulation Management Service ([facility]) Inpatient Warfarin Consult HPI: Jun Snyder is a 59 y.o. male admitted on 03/13/2025 for SOB (shortness of breath) [R06.02] Medical History[1] Patient is on warfarin for Heart Valve Replacement and has a goal INR 2.0 - 3.0. Warfarin is currently managed by SNF, will be followed by [facility] after return to home. Pt's home dose of warfarin is 1.5 mg on //Wed and 1 mg all other days. However during last admission, patient required much higher dosing (02/20/25 - 03/05/25) S/sx of bleeding= none noted Interacting medications= therapeutic heparin bridge Labs: Recent Labs 03/19/25 0752 03/20/25 0548 03/21/25 0624 HGB 8.9* 9.2* 8.8* HCT 30.4* 30.3* 29.2* PLT 320 308 271 Recent Labs 03/21/25 0624 INR 2.9* Date INR Dose 03/21 2.9 4mg 03/20 1.9 7.5 mg 03/19 1.6 7.5 mg 03/18 1.5 5 mg 03/17 1.5 5 mg 03/16 1.7 2.5 mg 03/15 1.7 2.5 mg 03/14 --- 1.5 mg 03/13 1.7 3 mg Assessment/Plan: 1. Therapeutic INR but with large increase overnight, so will reduce warfarin dose to 4mg today. 2. Monitor for s/s of bleeding and drug interactions. Will adjust dose accordingly. 3. Warfarin is followed by [facility] outpatient. [facility] will manage inpatient and take over management once discharged from SNF. Fatuma Odonnell [facility], PharmD SAILAJA is available daily [phone] via [employer]. If no response on Audiotoniq Chat then please page [phone]. [1] Past Medical History: Diagnosis Date Acute renal failure (ARF) ([facility]) 10/19/2019 Anemia 12/30/2021 Calcification of abdominal aorta ([facility]) 10/08/202309/[address] abd Diverticulosis 10/08/2023 [place]D [place] hemodialysis [place] ([facility]) 10/26/2019 Hemodialysis patient ([facility]) ([facility]) HTN (hypertension) 12/01/2022 Hypertension IgA nephropathy IgA nephropathy determined by biopsy of kidney 10/26/2019 Missed vaccination due to patient refusal 10/08/2023 Has a number of non-scientific based beliefs which interfere with his understanding and acceptance of the medical benefit of vaccination. Nonrheumatic aortic valve stenosis 10/08/2023 Paroxysmal A-fib ([facility]) ([facility]) 08/18/2023 Tobacco abuse 10/08/2023 Nutrition Assessment Type and Reason for Visit: Reassess Nutrition Recommendations/Plan: Current diet and ONS remains appropriate Will continue to monitor labs, meds, po intakes and/or enteral nutrition tolerance, skin integrity, wt trends, and overall nutrition status - RD to follow weekly Malnutrition Assessment: Malnutrition Status: Moderate malnutrition (per RD assessment 03/14/25) Context: Acute Illness Interval History: 03/20/2025-patient seen in dialysis, resting comfortably, no complaints Nutrition Assessment: Jun is a 59 y.o. male with past medical history of hypertension, IgA nephropathy, ESRD on HD, CAD, history of CABG, history of intracranial bleed, paroxysmal A-fib aortic stenosis, s/p mechanical valve replacement recent admission here from 02/20-03/05 for hemoptysis due to Klebsiella pneumonia with lung abscess presented to [facility] ED with worsening shortness of breath. He went to dialysis on 03/13, but was sent to ED due to worsening shortness of breath. Workup in the emergency department showed chest x-ray with volume overload, elevated BNP and troponin, EKG showed atrial flutter. Patient was admitted to hospital and nephrology, cardiology were consulted. Cardiology recommended rate control measures for atrial flutter, previously failing DCCV and amiodarone in the past. Nephrology managing dialysis with ultrafiltration for volume overload. Patient was also noted to have gangrenous left toes. Seen by vascular surgery in consultation who recommended TMA, patient is refusing any type of surgery. Patient has a sacral decubitus ulcer stage IV present on admission as well. LOS# 7. RD following for wound, dialysis, moderate malnutrition. Pt admitted for SOB, CXR showed pulmonary edema. Last dialysis was on Wednesday, 2000 mL net removal. Pt was OOR at dialysis at time of visit on the unit. Continues UF via dialysis for volume overload. Seen by cardio for concern for acute HF, found to be in atrial flutter. Vascular recommending TMA got gangrenous toes, however pt refusing surgery at this time. On admission pt's appetite has been improving and tolerating diet well. States his Dysgeusia has nearly resolved and was accepting of ONS. Current nutrition therapies remains appropriate. Nutrition Related Findings: Wound Type: Multiple, Wound Vac (per wound care: 1.) Sacrum: Stage 4 pressure injury 2.) Left toes 1-4: Arterial Ulcer (Unknown)) Isolation Status: No active isolations Food Allergies: NKFA Teeth: Missing teeth, Dentures upper, Dentures lower Room Service: Selective Kee Scale Score: 17 Peripheral Vascular (WDL): Exceptions to WDL Abdomen Inspection: Soft, Nondistended; Abdominal Tenderness: Nontender Bowel Sounds (All Quadrants): Active; Last BM Date: 03/20/25 Level of Consciousness: Alert; Orientation Level: Oriented X4 Code Status, Oxygen Needs, Vital Signs, I/Os: Code Status: Full Code Oxygen Therapy: SpO2: 100 %; O2 Delivery Method: Nasal cannula; O2 Flow Rate (L/min): 4 L/min Vital Signs: Temp: 36.6 C (97.8 F); Heart Rate: 75; Resp: 24; BP: 140/81; MAP (mmHg): 101 Net IO Since Admission: 3,307.87 mL [03/20/25 175] Intake/Output Summary (Last 24 hours) at 03/20/2025 1753 Last data filed at 03/20/2025 1523 Gross per 24 hour Intake 1338.87 ml Output -- Net 1338.87 ml Labs/Meds Reviewed: Scheduled Meds[1] Continuous Meds[2] BMP: Recent Labs 03/18/25 01503/19/25 0752 03/20/25 0548 NA 139 137 136 K 3.4* 4.0 5.3* CL 100 102 102 CO2 29 27 24 BUN 16 24* 32* CREATININE 2.64* 3.67* 4.28* GLUCOSE 73* 85 91 CALCIUM 9.0 9.0 9.1 MG 1.9 1.9 2.0 HEPATIC: Recent Labs 03/18/25 01503/19/25 0752 03/20/25 0548 AST 50* 52* 46* ALT 11 14 13 BILITOT 0.8 0.9 0.8 ALKPHOS 241* 221* 194* Current Nutrition Therapies: Adult diet Regular; Low Sodium (2 gm) Current Oral Intake Average Meal Intake: 76-100%, 51-75% Average Supplements Intake: 51-75%, 76-100% Dietary Orders (From admission, onward) Start Ordered 03/14/25 180 Supplement:Breakfast, Dinner; Chocolate Ensure Plus High Protein Until discontinued Question Answer Comment Frequency Breakfast Frequency Dinner Select supplement: Chocolate Ensure Plus High Protein 03/14/25 18003/13/25 1743 Adult diet Regular; Low Sodium (2 gm) Diet effective now Question Answer Comment Diet type Regular Sodium restriction: Low Sodium (2 gm) 03/13/25 1746 Anthropometric Measures: Height: 177.8 cm (5' 10") Current Body Weight: 69.4 kg (153 lb) Weight Source: Standing Scale Admission Body Weight: 67.1 kg (148 lb) (no method) Usual Body Weight: 93.4 kg (206 lb) (Aug 2024) % Weight Change (Calculated): -28.6 [place] Body Weight (lbs) (Calculated): 166 lbs [place] Body Weight (Kg) (Calculated): 75 kg % [place] Body Weight (Calculated): 88.6 % BMI (kg/m2) (Calculated): 22 Weight Adjustment For: No Adjustment BMI Categories: Normal Weight (BMI 18.5-24.9) BMI (Calculated): 22.07 Weight: 69.8 kg (153 lb 12.8 oz) Weight Method: Standing scale Weight History: Wt Readings from Last 20 Encounters: 03/20/25 69.8 kg (153 lb 12.8 oz) 02/23/25 60.8 kg (134 lb) 02/14/25 59 kg (130 lb) 02/01/25 46.1 kg (101 lb 10.1 oz) 11/28/24 58.9 kg (129 lb 13.6 oz) 08/28/24 93.4 kg (206 lb) 11/12/23 94.3 kg (208 lb) 10/08/23 93.9 kg (207 lb) 08/17/23 90.7 kg (200 lb) 05/01/23 90.7 kg (200 lb) 08/07/22 90.7 kg (200 lb) 12/18/20 85.3 kg (188 lb) Nutrition Interventions: Food and/or Nutrient Delivery: Continue Current Diet and Continue Oral Nutrition Supplement Nutrition Education/Counseling: No recommendation at this time Coordination of Nutrition Care: Continue to monitor while inpatient Goals: Previous Goal Met: Progressing toward Goal(s) Goals: Meet at least 75% of estimated needs Nutrition Monitoring and Evaluation: Behavioral-Environmental Outcomes: None Identified Food/Nutrient Intake Outcomes: Food and Nutrient Intake, Supplement Intake Physical Signs/Symptoms Outcomes: Biochemical Data Discharge Planning: Too soon to determine Yasemin Ceron MS, RD, LD Contact: or Aud[employer] Chat (dial *[phone] from hospital phone) [1] Lidocaine, 1 patch, Topical, Daily metoprolol tartrate, 50 mg, Oral, BID pantoprazole, 40 mg, Oral, BID AC sevelamer carbonate, 800 mg, Oral, TID WC sodium zirconium cyclosilicate, 5 g, Oral, Daily [2] heparin, 5-30 Units/kg/hr, Last Rate: 20 Units/kg/hr (03/20/25 1643) [facility] Anticoagulation Management Service ([facility]) Inpatient Warfarin Consult HPI: Jun Snyder is a 59 y.o. male admitted on 03/13/2025 for SOB (shortness of breath) [R06.02] Medical History[1] Patient is on warfarin for Heart Valve Replacement and has a goal INR 2.0 - 3.0. Warfarin is currently managed by SNF, will be followed by [facility] after return to home. Pt's home dose of warfarin is 1.5 mg on //Wed and 1 mg all other days. However during last admission, patient required much higher dosing (02/20/25 - 03/05/25) S/sx of bleeding= none noted Interacting medications= therapeutic heparin bridge Labs: Recent Labs 03/18/25 0159 03/19/25 0752 03/20/25 0548 HGB 9.1* 8.9* 9.2* HCT 30.4* 30.4* 30.3* PLT 333 320 308 Recent Labs 03/20/25 0548 INR 1.9* Date INR Dose 03/20 1.9 7.5 mg 03/19 1.6 7.5 mg 03/18 1.5 5 mg 03/17 1.5 5 mg 03/16 1.7 2.5 mg 03/15 1.7 2.5 mg 03/14 --- 1.5 mg 03/13 1.7 3 mg Assessment/Plan: 1. Subtherapeutic INR. Taking into account considerable INR increase from yesterday, will continue 7.5 mg x 1 day for INR optimization 2. Continue heparin while INR is subtherapeutic 3. Monitor for s/s of bleeding and drug interactions. Will adjust dose accordingly. 4. Warfarin is followed by SNF outpatient. SAILAJA will manage inpatient and take over management once discharged from SNF. Michael Koehler PharmD candidate 2025, staffed with Fatuma Odonnell PharmD, [facility] SAILAJA is available daily [phone] via [employer]. If no response on [employer] Chat then please page [phone]. [1] Past Medical History: Diagnosis Date Acute renal failure (ARF) ([facility]) 10/19/2019 Anemia 12/30/2021 Calcification of abdominal aorta ([facility]) 10/08/202309/[address] abd Diverticulosis 10/08/2023 [place]D [place] hemodialysis [place] ([facility]) 10/26/2019 Hemodialysis patient ([facility]) ([facility]) HTN (hypertension) 12/01/2022 Hypertension IgA nephropathy IgA nephropathy determined by biopsy of kidney 10/26/2019 Missed vaccination due to patient refusal 10/08/2023 Has a number of non-scientific based beliefs which interfere with his understanding and acceptance of the medical benefit of vaccination. Nonrheumatic aortic valve stenosis 10/08/2023 Paroxysmal A-fib ([facility]) ([facility]) 08/18/2023 Tobacco abuse 10/08/2023 Cosigned by Fatuma Odonnell RPh at 03/20/2025 10:38 AM EDT Hospitalist Progress Note Subjective: Admit Date: 03/13/2025 PCP: Leilani Troncoso Room#: [id number] A Chief complaint: Shortness of breath Brief Hospital course: Jun is a 59 y.o. male with past medical history of hypertension, IgA nephropathy, ESRD on HD, CAD, history of CABG, history of intracranial bleed, paroxysmal A-fib aortic stenosis, s/p mechanical valve replacement recent admission here from 02/20-03/05 for hemoptysis due to Klebsiella pneumonia with lung abscess presented to [facility] ED with worsening shortness of breath. He went to dialysis on 03/13, but was sent to ED due to worsening shortness of breath. Workup in the emergency department showed chest x-ray with volume overload, elevated BNP and troponin, EKG showed atrial flutter. Patient was admitted to hospital and nephrology, cardiology were consulted. Cardiology recommended rate control measures for atrial flutter, previously failing DCCV and amiodarone in the past. Nephrology managing dialysis with ultrafiltration for volume overload. Patient was also noted to have gangrenous left toes. Seen by vascular surgery in consultation who recommended TMA, patient is refusing any type of surgery. Patient has a sacral decubitus ulcer stage IV present on admission as well. Interval History: 03/20/2025-patient seen in dialysis, resting comfortably, no complaints Past Medical History: Medical History[1] Adult diet Regular; Low Sodium (2 gm) 24HR INTAKE/OUTPUT: Intake/Output Summary (Last 24 hours) at 03/20/2025 0910 Last data filed at 03/20/2025 0623 Gross per 24 hour Intake 1038.87 ml Output -- Net 1038.87 ml LABS: CBC: Recent Labs 03/18/25 01503/19/25 0752 03/20/25 0548 WBC 7.6 7.8 8.1 RBC 3.03* 2.98* 3.00* HGB 9.1* 8.9* 9.2* HCT 30.4* 30.4* 30.3* MCV 100.3* 102.0* 101.0* RDW 20.6* 20.8* 20.2* PLT 333 320 308 BMP: Recent Labs 03/18/25 01503/19/25 0752 03/20/25 0548 NA 139 137 136 K 3.4* 4.0 5.3* CL 100 102 102 CO2 29 27 24 BUN 16 24* 32* CREATININE 2.64* 3.67* 4.28* GLUCOSE 73* 85 91 CALCIUM 9.0 9.0 9.1 ANIONGAP 10 8 10 LIVER PROFILE: Recent Labs 03/18/25 0159 03/19/25 0752 03/20/25 0548 AST 50* 52* 46* ALT 11 14 13 BILITOT 0.8 0.9 0.8 ALKPHOS 241* 221* 194* PROT 7.3 7.4 7.3 PT/INR: Recent Labs 03/18/25 0159 03/19/25 0752 03/20/25 0548 PROTIME 15.2* 17.0* 19.1* INR 1.5* 1.6* 1.9* CARDIAC ENZYMES: No results for input(s): "TROPONINI" in the last 72 hours. Procalcitonin: No results found for: "PROCAL" COVID-19 PCR: No results for input(s): "COVID19" in the last 72 hours. Objective: Vitals: BP 130/84 (BP Location: Right arm, Patient Position: Lying) Pulse 77 Temp 36.4 C (97.6 F) (Temporal) Resp 18 Ht 5' 10" (1.778 m) Wt 153 lb 12.8 oz (69.8 kg) SpO2 99% BMI 22.07 kg/m Pulse Ox: SpO2 Av % Min: 98 % Max: 100 % Supplemental O2: O2 Flow Rate (L/min): 4 L/min Physical Exam HENT: Head: Normocephalic and atraumatic. Mouth/Throat: Mouth: Mucous membranes are moist. Cardiovascular: Rate and Rhythm: Normal rate and regular rhythm. Pulmonary: Effort: Pulmonary effort is normal. Comments: Decreased BS at bases Abdominal: Palpations: Abdomen is soft. Musculoskeletal: Comments: Sacral wound with wound VAC, gangrenous toes noted on first 4 toes on left lower extremity Skin: General: Skin is warm and dry. Neurological: Mental Status: He is alert. Psychiatric: Mood and Affect: Mood normal. Medications: Scheduled PRN Scheduled Meds[2] PRN Meds[3] Continuous Continuous Meds[4] Assessment Data: 1 specialty note reviewed, 3+ labs reviewed Acute, acute on chronic, unstable/uncontrolled chronic problems/diagnoses: Shortness of breath likely due to fluid overload A-fib/flutter Congestive heart failure with possible acute exacerbation ESRD on HD Sacral wound present on admission-stage IV Subtherapeutic INR Dry gangrene on toes 1-4 left lower extremity Stable chronic problems affecting care, new non-acute diagnoses: Recent Klebsiella pneumonia with lung abscess S/p mechanical valve replacement on Coumadin IgA nephropathy Hypertension History of CAD, CABG History of intracranial hemorrhage Medical History[5] Plan As a result of the above findings & factors, the following mgmt was pursued: - Patient was admitted to hospital for further evaluation of shortness of breath. Chest x-ray suggest pulmonary edema. Has a history of heart failure as well as end-stage renal disease. Nephrology consulted and patients volume overload will be managed with dialysis and ultrafiltration. Last dialysis was on Wednesday, 2000 mL net removal. - Patient seen by cardiology due to concern for acute heart failure. Was found to be in atrial flutter. Failed previous DCCV and amiodarone in the past. Cardiology recommended rate control measures. Heart rates have been stable on vitals review. Volume management with dialysis, continue rate control, anticoagulation with heparin drip bridge back to Coumadin. -Wound care is consulted for sacral wound as well as gangrenous toes. Patient was seen by vascular surgery in consultation due to gangrenous toes, recommended for TMA, however patient is refusing any surgery at this time. -Due to mechanical heart valve patient is on Coumadin, he is currently on heparin drip due to subtherapeutic INR. INR this morning is 1.9. Continue titration to goal INR 2.5-3.5 - PT/OT recommends SNF - am labs, replace lytes prn - PT/OT/CM/SW - delirium precautions: increase activity, limit nighttime disturbances, and avoid anticholinergic meds, benzos, etc - DVT prophylaxis: SCDs and encourage ambulation Advance Directive: Full Code Anticipated Discharge - Date -1 to 2 days - Location -SNF - Pending the following -bridged to therapeutic INR. Extended Emergency Contact Information Primary Emergency Contact: Omar Snyder Mobile Relation: Child Secondary Emergency Contact: TarunToma Mobile Relation: Partner Anu Castro MD Division of Hospital Medicine Inpatient Medical Services/[facility] [place] [1] Past Medical History: Diagnosis Date Acute renal failure (ARF) ([facility]) 10/19/2019 Anemia 12/30/2021 Calcification of abdominal aorta ([facility]) 10/08/202309/[address] abd Diverticulosis 10/08/2023 ESRD [place] hemodialysis [place] ([facility]) 10/26/2019 Hemodialysis patient ([facility] ([facility]) HTN (hypertension) 12/01/2022 Hypertension IgA nephropathy IgA nephropathy determined by biopsy of kidney 10/26/2019 Missed vaccination due to patient refusal 10/08/2023 Has a number of non-scientific based beliefs which interfere with his understanding and acceptance of the medical benefit of vaccination. Nonrheumatic aortic valve stenosis 10/08/2023 Paroxysmal A-fib ([facility]) ([facility]) 08/18/2023 Tobacco abuse 10/08/2023 [2] Lidocaine, 1 patch, Topical, Daily metoprolol tartrate, 50 mg, Oral, BID pantoprazole, 40 mg, Oral, BID AC sevelamer carbonate, 800 mg, Oral, TID WC sodium zirconium cyclosilicate, 5 g, Oral, Daily [3] PRN medications: acetaminophen OR acetaminophen, heparin, heparin, ipratropium-albuterol, melatonin, ondansetron ODT OR ondansetron, polyethylene glycol (PEG) 3350 [4] heparin, 5-30 Units/kg/hr, Last Rate: 20 Units/kg/hr (03/20/25 0717) [5] Past Medical History: Diagnosis Date Acute renal failure (ARF) ([facility]) 10/19/2019 Anemia 12/30/2021 Calcification of abdominal aorta ([facility]) 10/08/202309/[address] abd Diverticulosis 10/08/2023 ESRD on hemodialysis ([facility] ([facility]) 10/26/2019 Hemodialysis patient ([facility] ([facility]) HTN (hypertension) 12/01/2022 Hypertension IgA nephropathy IgA nephropathy determined by biopsy of kidney 10/26/2019 Missed vaccination due to patient refusal 10/08/2023 Has a number of non-scientific based beliefs which interfere with his understanding and acceptance of the medical benefit of vaccination. Nonrheumatic aortic valve stenosis 10/08/2023 Paroxysmal A-fib ([facility]) ([facility]) 08/18/2023 Tobacco abuse 10/08/2023 [facility] Anticoagulation Management Service ([facility]) Inpatient Warfarin Consult HPI: Jun Snyder is a 59 y.o. male admitted on 03/13/2025 for SOB (shortness of breath) [R06.02] Medical History[1] Patient is on warfarin for Heart Valve Replacement and has a goal INR 2.0 - 3.0. Warfarin is currently managed by SNF, will be followed by [facility] after return to home. Pt's home dose of warfarin is 1.5 mg on //Wed and 1 mg all other days. However during last admission, patient required much higher dosing (02/20/25 - 03/05/25) S/sx of bleeding= none noted Interacting medications= therapeutic heparin bridge Labs: Recent Labs 03/17/25 0047 03/18/25 0159 03/19/25 0752 HGB 10.0* 9.1* 8.9* HCT 33.8* 30.4* 30.4* PLT 407 333 320 Recent Labs 03/19/25 0752 INR 1.6* Date INR Dose 03/19 1.6 7.5 mg 03/18 1.5 5 mg 03/17 1.5 5 mg 03/16 1.7 2.5 mg 03/15 1.7 2.5 mg 03/14 --- 1.5 mg 03/13 1.7 3 mg Assessment/Plan: 1. Subtherapeutic INR. During last admission, patient required much higher dosing than reported home regimen. Still subtherapeutic despite two 5 mg doses. Will increase to 7.5 mg for 1 dose and continue heparin continuous infusion. 2. Monitor for s/s of bleeding and drug interactions. Will adjust dose accordingly. 3. Warfarin is followed by SNF outpatient. SAILAJA will manage inpatient and take over management once discharged from SNF. Michael Koehler, LauraD candidate 2025, staffed with Fatuma Odonnell, LauraD, [facility] is available daily [phone] via [employer]. If no response on [employer] Chat then please page [phone]. [1] Past Medical History: Diagnosis Date Acute renal failure (ARF) ([facility]) 10/19/2019 Anemia 12/30/2021 Calcification of abdominal aorta ([facility]) 10/08/202309/[address] abd Diverticulosis 10/08/2023 ESRD on hemodialysis ([facility] ([facility]) 10/26/2019 Hemodialysis patient ([facility] ([facility]) HTN (hypertension) 12/01/2022 Hypertension IgA nephropathy IgA nephropathy determined by biopsy of kidney 10/26/2019 Missed vaccination due to patient refusal 10/08/2023 Has a number of non-scientific based beliefs which interfere with his understanding and acceptance of the medical benefit of vaccination. Nonrheumatic aortic valve stenosis 10/08/2023 Paroxysmal A-fib ([facility]) ([facility]) 08/18/2023 Tobacco abuse 10/08/2023 Cosigned by Fatuma Odonnell RP at 03/19/2025 2:39 PM EDT Images from the original note were not included. [facility] Wound Care/NPWT Progress Note Jun Snyder AGE: 59 y.o. GENDER: male : 1965 Subjective: HISTORY of PRESENT ILLNESS HPI Jun Snyder is a 59 y.o. male who presents for a wound care follow up and NPWT application/management. HPI: Patient is a 59 y.o. male with past medical history of hypertension, IgA nephropathy, ESRD on HD, CAD, history of CABG, history of intracranial bleed, paroxysmal A-fib aortic stenosis, s/p mechanical valve replacement recent admission here from 02/20-03/05 for hemoptysis due to Klebsiella pneumonia with lung abscess. He went to dialysis today, but was sent to ED due to worsening shortness of breath. Wound Care consulted for wound vac and left toes Patient resting in bed. NPWT dressing removed early this morning by floor RN due to suction failing. At time of visit patient requesting to have "break" from wound vac. Patient is agreeable to assessment of wound. Patient states will allow Vac to be reapplied Wednesday if still here. PAST MEDICAL HISTORY Medical History[1] PAST SURGICAL HISTORY Surgical History[2] FAMILY HISTORY Family History[3] SOCIAL HISTORY Social History[4] ALLERGIES Allergies[5] MEDICATIONS Medications Ordered Prior to Encounter[6] REVIEW OF SYSTEMS Pertinent items are noted in HPI. Objective: BP 148/81 (BP Location: Right arm, Patient Position: Sitting) Pulse 84 Temp 36.4 C (97.6 F) (Temporal) Resp 20 Ht 1.778 m (5' 10") Wt 65.3 kg (143 lb 14.4 oz) SpO2 99% BMI 20.65 kg/m PHYSICAL EXAM General appearance: in no apparent distress, non-toxic, alert, oriented times 3, and cooperative Skin: warm and dry Pulmonary: Normal effort, no respiratory distress, no cyanosis Left toes 1-4: Necrotic tissue. No open wounds. No drainage present. Odor noted. Stable. 03/14/25 Sacrum: 7 x 5 x 0.8 cm. Wound bed with pink granulation tissue, scant serosang drainage. Mahnaz wound intact, fragile. 03/19/25 LABS CBC: Lab Results Component Value Date WBC 7.8 03/19/2025 HGB 8.9 (L) 03/19/2025 HCT 30.4 (L) 03/19/2025 MCV 102.0 (H) 03/19/2025 PLT 320 03/19/2025 BMP: Lab Results Component Value Date NA 137 03/19/2025 K 4.0 03/19/2025 CL 102 03/19/2025 CO2 27 03/19/2025 BUN 24 (H) 03/19/2025 CREATININE 3.67 (H) 03/19/2025 PT/INR: Lab Results Component Value Date PROTIME 17.0 (H) 03/19/2025 INR 1.6 (H) 03/19/2025 Prealbumin: No results found for: "PREALBUMIN" Albumin:No components found for: LABALBU Sed Rate:No results found for: SEDRATE Micro: No components found for: BC Assessment/Plan: Nursing staff to perform dressing change: Sacrum: Stage 4 pressure injury - Cleanse with NS. Apply NS moistened gauze to wound bed and cover with clean dry dressing BID and PRN. Left toes 1-4: Arterial Ulcer (Unknown) - Cleanse with NS, apply Betadine and allow to dry, leave TISHA daily and PRN Centrella Pro Plus bed Reposition q2hrs Incontinent checks q2hrs Nutritional support Wound Care to follow Recommend to follow up at [facility] wound care center after hospital discharge. Any questions or concerns please secure chat "[facility] wound/ostomy". Thank you for the consult! I [...] History: Diagnosis Date Acute renal failure (ARF) ([facility]) 10/19/2019 Anemia 12/30/2021 Calcification of abdominal aorta ([facility]) 10/08/202309/[address] abd Diverticulosis 10/08/2023 ESRD on hemodialysis ([facility]) ([facility]) 10/26/2019 Hemod[place] ([facility]) HTN (hypertension) 12/01/2022 Hypertension IgA nephropathy IgA nephropathy determined by biopsy of kidney 10/26/2019 Missed vaccination due to patient refusal 10/08/2023 Has a number of non-scientific based beliefs which interfere with his understanding and acceptance of the medical benefit of vaccination. Nonrheumatic aortic valve stenosis 10/08/2023 Paroxysmal A-fib ([facility]) ([facility]) 08/18/2023 Tobacco abuse 10/08/2023 [2] Past Surgical History: Procedure Laterality Date APPENDECTOMY CARDIAC CATHETERIZATION N/A 10/09/2024 Performed by Bob Watson MD at [facility] Cardiac Cath/EP Lab CARDIAC CATHETERIZATION Bilateral 11/01/2024 Performed by Bob Watson MD at [facility] Cardiac Cath/EP Lab CARDIAC CATHETERIZATION N/A 11/01/2024 Performed by Bob Watson MD at [facility] Cardiac Cath/EP Lab COLONOSCOPY N/A 01/24/2025 Performed by Chadd Davis MD at [facility] ENDOSCOPY FISTULAGRAM (HISTORICAL) Left 09/15/2021 LEFT UPPER ARM HX AV FISTULA CREATION IR EMBOLIZATION 10/14/2024 IR EMBOLIZATION 10/14/2024 [facility] SPECIAL PROCEDURES IR FISTULAGRAM 08/07/2022 IR FISTULAGRAM 08/07/2022 [facility] IR IMAGING TONSILLECTOMY (HISTORICAL) [3] Family History Problem Relation Name Age of Onset No Known Problems Mother No Known Problems Father [4] Social History Tobacco Use Smoking status: Every Day Current packs/day: 1.00 Average packs/day: 1.4 packs/day for 31.3 years (45.2 ttl pk-yrs) Types: Cigarettes Start date: 1993 [...] Prior to Encounter Medication Sig Dispense Refill ipratropium-albuterol (Duo-Neb) 0.5-2.5 mg/3 mL nebulizer solution Take 3 mL by nebulization every 8 hours as needed for shortness of breath. Lidocaine 4 % patch Apply 1 patch topically daily. melatonin 3 MG tablet Take 1 tablet (3 mg) by mouth Nightly as needed for sleep. metoprolol tartrate (Lopressor) 25 MG tablet Take 1 tablet (25 mg) by mouth 2 times daily. 60 tablet 11 pantoprazole (ProtoNix) 40 MG EC tablet Take 1 tablet (40 mg) by mouth 2 times daily (before meals). Do not crush, chew, or split. 60 tablet 11 sevelamer carbonate (Renvela) 800 MG tablet Take 1 tablet (800 mg) by mouth 3 times daily (with meals). Swallow tablet whole; do not crush, break, or chew. 90 tablet 11 sodium zirconium cyclosilicate (Lokelma) 5 g packet Take 5 g by mouth daily. warfarin (Coumadin) 1 MG tablet Take as directed per After Visit Summary. acetaminophen (Tylenol) 325 MG tablet Take 650 mg by mouth every 6 hours as needed for mild pain (1-3), fever or moderate pain (4-6). (Patient not taking: Reported on 03/13/2025) amoxicillin-clavulanate (Augmentin) 500-125 MG tablet Take 1 tablet (500 mg) by mouth daily with supper. Augmentin 500mg q24 (to be taken after HD on HD days) until 03/10/25 (Patient not taking: Reported on 03/13/2025) B complex-vitamin C-folic acid (Nephro-Nato Rx) 1 MG tablet Take 1 tablet by mouth daily. (Patient not taking: Reported on 03/13/2025) bisacodyl (Dulcolax) 10 MG suppository Insert 10 mg into the rectum Daily as needed for constipation. (Patient not taking: Reported on 03/13/2025) bisacodyl (Dulcolax) 5 MG EC tablet Take 5 mg by mouth Daily as needed for constipation. Do not crush, chew, or split. (Patient not taking: Reported on 03/13/2025) magnesium hydroxide (Milk of Magnesia) 800 MG/5ML suspension Take 30 mL by mouth Daily as needed for constipation (if no bm in 3 days). (Patient not taking: Reported on 03/13/2025) naloxone in sodium chloride (PF) injection injection Inject 0.04 mg into the shoulder, thigh, or buttocks as needed for opioid reversal or respiratory depression. QUEtiapine (SEROquel) 25 MG tablet Take 1 tablet (25 mg) by mouth Nightly. (Patient not taking: Reported on 03/13/2025) 30 tablet 0 Cosigned by Ahsan Gill DO at 03/19/2025 4:44 PM EDT Hospitalist Progress Note Subjective: Admit Date: 03/13/2025 PCP: Leilani Troncoso Room#: [id number] A Chief Complaint Patient presents with Shortness of Breath Pt arrived from shelter via EMS. Pt was starting dialysis and feeling short of breath dialysis was stopped and sent to the hospital to be evaluated. Brief Hospital course: Jun is a 59 y.o. male with past medical history of hypertension, IgA nephropathy, ESRD on HD, CAD, history of CABG, history of intracranial bleed, paroxysmal A-fib aortic stenosis, s/p mechanical valve replacement recent admission here from 02/20-03/05 for hemoptysis due to Klebsiella pneumonia with lung abscess presented to [facility] with worsening shortness of breath. He went to dialysis on 03/13, but was sent to ED due to worsening shortness of breath. Work up in the ED Afebrile, blood pressure 146/94, tachycardic with heart rate ranging from 110s to 120s, was placed on 2 L of oxygen oxygen saturation 98% on 2 L CBC-hemoglobin of 8.5 close to baseline BMP-BUN of 41 creatinine of 3.32, potassium of 3.5 albumin of 1.5 Troponins-elevated at 39 likely due to ESRD EKG-atrial flutter CXR-cardiomegaly with pulmonary venous congestion CT chest revealed congestive heart failure with mild interstitial pulmonary edema, small pleural effusion. No acute lung consolidation. Multifocal areas of irregular pulmonary fibrosis. New ascites, omental edema and nodularity in upper abdomen He was transferred from [facility] to [facility] due to bed availability Nephrology consulted, seen the patient, recommendations noted Cardiology consulted, seen the patient, recommendations noted Wound care consulted, seen the patient, recommendations noted Vascular consulted, seen the patient, recommends left TMA, patient refuses surgery, follow-up with Ortho PT/OT recommends SNF Discussed with pharmacy, as INR subtherapeutic started on bridging with heparin drip Interval History: 03/19/2025-No overnight issues. Patient is seen and examined Patient comfortably sleeping in his bed without in any acute distress, denies any new acute complaints Vitals reviewed, stable Labs reviewed ESRD picture, INR 1.6, hemoglobin 8.9 Case and plan discussed with patient and bedside nurse. All questions answered. Past Medical History: Medical History[1] Adult diet Regular; Low Sodium (2 gm) 24HR INTAKE/OUTPUT: Intake/Output Summary (Last 24 hours) at 03/19/2025 1118 Last data filed at 03/18/2025 1928 Gross per 24 hour Intake 200 ml Output -- Net 200 ml LABS: CBC: Recent Labs 03/17/254603/18/2515803/19/25 0752 WBC 6.7 7.6 7.8 RBC 3.31* 3.03* 2.98* HGB 10.0* 9.1* 8.9* HCT 33.8* 30.4* 30.4* MCV 102.1* 100.3* 102.0* RDW 21.2* 20.6* 20.8* PLT 407 333 320 BMP: Recent Labs 03/17/254603/18/2515803/19/25 075 NA 141 139 137 K 3.9 3.4* 4.0 CL 104 100 102 CO2 25 29 27 BUN 22 16 24* CREATININE 3.25* 2.64* 3.67* GLUCOSE 87 73* 85 CALCIUM 9.6 9.0 9.0 ANIONGAP 12 10 8 LIVER PROFILE: Recent Labs 03/17/254603/18/2515803/19/25 075 AST 54* 50* 52* ALT 15 11 14 BILITOT 0.9 0.8 0.9 ALKPHOS 223* 241* 221* PROT 8.0 7.3 7.4 PT/INR: Recent Labs 03/17/254603/18/2515803/19/25 0752 PROTIME 16.0* 15.2* 17.0* INR 1.5* 1.5* 1.6* CARDIAC ENZYMES: No results for input(s): "TROPONINI" in the last 72 hours. Procalcitonin: No results found for: "PROCAL" COVID-19 PCR: No results for input(s): "COVID19" in the last 72 hours. Objective: Vitals: BP 148/81 (BP Location: Right arm, Patient Position: Sitting) Pulse 84 Temp 36.4 C (97.6 F) (Temporal) Resp 20 Ht 5' 10" (1.778 m) Wt 143 lb 14.4 oz (65.3 kg) SpO2 99% BMI 20.65 kg/m Pulse Ox: SpO2 Av.2 % Min: 94 % Max: 100 % Supplemental O2: O2 Flow Rate (L/min): 4 L/min Physical Exam HENT: Head: Normocephalic and atraumatic. Mouth/Throat: Mouth: Mucous membranes are moist. Cardiovascular: Rate and Rhythm: Normal rate and regular rhythm. Pulmonary: Effort: Pulmonary effort is normal. Comments: Decreased BS at bases Abdominal: Palpations: Abdomen is soft. Musculoskeletal: Comments: Sacral wound with wound VAC, gangrenous toes noted on first 4 toes on left lower extremity Skin: General: Skin is warm and dry. Neurological: Mental Status: He is alert. Psychiatric: Mood and Affect: Mood normal. Medications: Scheduled PRN Scheduled Meds[2] PRN Meds[3] Continuous Continuous Meds[4] Assessment Data: (CAT1) Reviewed 2 notes from [...] Acute, acute on chronic, unstable/uncontrolled chronic problems/diagnoses: Shortness of breath likely due to fluid overload A-fib/flutter Acute CHF ESRD on HD Sacral wound present on admission Subtherapeutic INR Dry gangrene on toes 1-4 left lower extremity Stable chronic problems affecting care, new non-acute diagnoses: Recent Klebsiella pneumonia with lung abscess S/p mechanical valve replacement on Coumadin IgA nephropathy Hypertension History of CAD, CABG History of intracranial hemorrhage Medical History[5] Plan As a result of the above findings & factors, the following mgmt was pursued: -INR service subtherapeutic, discussed with pharmacy, on heparin drip for bridging -INR 1.6 today - Cardiology consulted, seen the patient, recommendations noted - Nephrology consulted, seen the patient, recommendations noted - Wound care consulted, seen the patient, recommendations noted - Vascular surgery consulted, recommends surgery but patient refuses - PT/OT recommends SNF - am labs, replace lytes prn - PT/OT/CM/SW - delirium precautions: increase activity, limit nighttime disturbances, and avoid anticholinergic meds, benzos, etc - DVT prophylaxis: SCDs and encourage ambulation Complexity: Acute illness or injury posing a threat to life or body function (HIGH). Risk: Advance Directive: Full Code Anticipated Discharge - Date -1 to 2 days - Location -[facility] - Pending the following -clinical course, subtherapeutic INR, on bridging with heparin drip Total time spent (which include face to face and non face to face encounters) : 38.5 minutes Extended Emergency Contact Information Primary Emergency Contact: Omar Snyder Mobile Relation: Child Secondary Emergency Contact: Toma Mcneil Mobile Relation: Partner Barb Dawkins MD Division of Hospital Medicine Inpatient Medical Services/[facility] [place] [1] Past Medical History: Diagnosis Date Acute renal failure (ARF) ([facility]) 10/19/2019 Anemia 12/30/2021 Calcification of abdominal aorta ([facility]) 10/08/202309/[address] abd Diverticulosis 10/08/2023 ESRD on hemodialysis ([facility] ([facility]) 10/26/2019 Hemodialysis patient ([facility]) ([facility]) HTN (hypertension) 12/01/2022 Hypertension IgA nephropathy IgA nephropathy determined by biopsy of kidney 10/26/2019 Missed vaccination due to patient refusal 10/08/2023 Has a number of non-scientific based beliefs which interfere with his understanding and acceptance of the medical benefit of vaccination. Nonrheumatic aortic valve stenosis 10/08/2023 Paroxysmal A-fib ([facility]) ([facility]) 08/18/2023 Tobacco abuse 10/08/2023 [2] Lidocaine, 1 patch, Topical, Daily metoprolol tartrate, 50 mg, Oral, BID pantoprazole, 40 mg, Oral, BID AC sevelamer carbonate, 800 mg, Oral, TID WC sodium zirconium cyclosilicate, 5 g, Oral, Daily [3] PRN medications: acetaminophen OR acetaminophen, heparin, heparin, ipratropium-albuterol, melatonin, ondansetron ODT OR ondansetron, polyethylene glycol (PEG) 3350 [4] heparin, 5-30 Units/kg/hr, Last Rate: 19 Units/kg/hr (03/19/25 0912) [5] Past Medical History: Diagnosis Date Acute renal failure (ARF) ([facility]) 10/19/2019 Anemia 12/30/2021 Calcification of abdominal aorta ([facility]) 10/08/202309/[address] abd Diverticulosis 10/08/2023 ESRD on hemodialysis ([facility]) ([facility]) 10/26/2019 Hemodialysis patient ([facility]) ([facility]) HTN (hypertension) 12/01/2022 Hypertension IgA nephropathy IgA nephropathy determined by biopsy of kidney 10/26/2019 Missed vaccination due to patient refusal 10/08/2023 Has a number of non-scientific based beliefs which interfere with his understanding and acceptance of the medical benefit of vaccination. Nonrheumatic aortic valve stenosis 10/08/2023 Paroxysmal A-fib ([facility]) ([facility]) 08/18/2023 Tobacco abuse 10/08/2023 Nephrology Progress Note Following for ESRD-Pt adamantly refusing telemetry at this time, Current Inpatient Medications: Reviewed on NOV. Vitals: BP 138/76 (BP Location: Right arm, Patient Position: Lying) Pulse 84 Temp 36.2 C (97.2 F) (Temporal) Resp 18 Ht 1.778 m (5' 10") Wt 65.3 kg (143 lb 14.4 oz) SpO2 99% BMI 20.65 kg/m BLOOD PRESSURE RANGE: Systolic (24hrs), Av , Min:124 , Max:152 ; Diastolic (24hrs), Av, Min:74, Max:87 24HR INTAKE/OUTPUT: Intake/Output Summary (Last 24 hours) at 03/19/2025 0625 Last data filed at 03/18/2025 1928 Gross per 24 hour Intake 300 ml Output -- Net 300 ml Physical exam: Constitutional: + angry Neck: no bruits or jvd noted Cardiovascular: Normal S1, S2 without m/r/g Respiratory: CTAB without w/r/r Abdomen: +bs, soft, nt, nd Ext: no lower extremity edema Data: Labs: Recent Labs 03/17/25 0047 03/18/25 0159 WBC 6.7 7.6 HGB 10.0* 9.1* HCT 33.8* 30.4* MCV 102.1* 100.3* PLT 407 333 Recent Labs 03/17/25 0047 03/18/25 0159 NA 141 139 K 3.9 3.4* CL 104 100 CO2 25 29 GLUCOSE 87 73* CALCIUM 9.6 9.0 MG 2.2 1.9 BUN 22 16 CREATININE 3.25* 2.64* Assessment and Plan: 59-year-old male with ESRD on hemodialysis due to IgA nephropathy, presenting with fluid overload, shortness of breath, and atrial flutter. Complex comorbidities include CAD s/p CABG, mechanical valve on warfarin (subtherapeutic INR), prior ICH, anemia, hypoalbuminemia, chronic wounds, and dry gangrene of LLE toes. Plan: HD TTS Monitor electrolytes, BUN/Cr, and albumin. Hold nephrotoxic agents; dose meds renally. HTN controlled Anemia stable CKD MBD PEM phosphorus is ok Coordinate with cardiology for rate control and anticoagulation in atrial flutter. Vascular surgery and wound care following for dry gangrene and sacral wound. Wellington Nicole MD' Please call [phone] or message me through [employer] with any questions or concerns. Nephrology Progress Note Following for ESRD Current Inpatient Medications: Reviewed on NOV. Vitals: BP 141/78 (BP Location: Right arm, Patient Position: Lying) Pulse 80 Temp 36.2 C (97.2 F) (Temporal) Resp 18 Ht 1.778 m (5' 10") Wt 65 kg (143 lb 3.2 oz) SpO2 99% BMI 20.55 kg/m BLOOD PRESSURE RANGE: Systolic (24hrs), Av , Min:117 , Max:159 ; Diastolic (24hrs), Av, Min:75, Max:90 24HR INTAKE/OUTPUT: Intake/Output Summary (Last 24 hours) at 03/18/2025 0814 Last data filed at 03/17/2025 194 Gross per 24 hour Intake 420 ml Output 100 ml Net 320 ml Physical exam: Constitutional: NAD Neck: no bruits or jvd noted Cardiovascular: Normal S1, S2 without m/r/g Respiratory: CTAB without w/r/r Abdomen: +bs, soft, nt, nd Ext: no lower extremity edema Data: Labs: Recent Labs 03/16/2515403/17/254603/18/25158 WBC 7.0 6.7 7.6 HGB 9.1* 10.0* 9.1* HCT 30.2* 33.8* 30.4* MCV 100.0* 102.1* 100.3* PLT 372 407 333 Recent Labs 03/16/2515403/17/254603/18/25158 NA 139 141 139 K 4.1 3.9 3.4* CL 104 104 100 CO2 26 25 29 GLUCOSE 83 87 73* CALCIUM 9.1 9.6 9.0 MG 2.0 2.2 1.9 BUN 18 22 16 CREATININE 2.35* 3.25* 2.64* Assessment and Plan: 59-year-old male with ESRD on hemodialysis due to IgA nephropathy, presenting with fluid overload, shortness of breath, and atrial flutter. Complex comorbidities include CAD s/p CABG, mechanical valve on warfarin (subtherapeutic INR), prior ICH, anemia, hypoalbuminemia, chronic wounds, and dry gangrene of LLE toes. Plan: HD TTS Nephrology to evaluate dialysis adequacy and adjust dry weight. Monitor electrolytes, BUN/Cr, and albumin. Hold nephrotoxic agents; dose meds renally. Coordinate with cardiology for rate control and anticoagulation in atrial flutter. Vascular surgery and wound care following for dry gangrene and sacral wound. Wellington Nicole MD' Please call [phone] or message me through [employer] with any questions or concerns. Hospitalist Progress Note Subjective: Admit Date: 03/13/2025 PCP: Leilani Troncoso Room#: [id number] A Chief Complaint Patient presents with Shortness of Breath Pt arrived from shelter via EMS. Pt was starting dialysis and feeling short of breath dialysis was stopped and sent to the hospital to be evaluated. Brief Hospital course: Jun is a 59 y.o. male with past medical history of hypertension, IgA nephropathy, ESRD on HD, CAD, history of CABG, history of intracranial bleed, paroxysmal A-fib aortic stenosis, s/p mechanical valve replacement recent admission here from 02/20-03/05 for hemoptysis due to Klebsiella pneumonia with lung abscess presented to [facility] ED with worsening shortness of breath. He went to dialysis on 03/13, but was sent to ED due to worsening shortness of breath. Work up in the ED Afebrile, blood pressure 146/94, tachycardic with heart rate ranging from 110s to 120s, was placed on 2 L of oxygen oxygen saturation 98% on 2 L CBC-hemoglobin of 8.5 close to baseline BMP-BUN of 41 creatinine of 3.32, potassium of 3.5 albumin of 1.5 Troponins-elevated at 39 likely due to ESRD EKG-atrial flutter CXR-cardiomegaly with pulmonary venous congestion CT chest revealed congestive heart failure with mild interstitial pulmonary edema, small pleural effusion. No acute lung consolidation. Multifocal areas of irregular pulmonary fibrosis. New ascites, omental edema and nodularity in upper abdomen He was transferred from [facility] ED to [facility] due to bed availability Nephrology consulted, seen the patient, recommendations noted Cardiology consulted, seen the patient, recommendations noted Wound care consulted, seen the patient, recommendations noted Vascular consulted, seen the patient, recommends left TMA, patient refuses surgery, follow-up with Ortho PT/OT recommends SNF Discussed with pharmacy, as INR subtherapeutic started on bridging with heparin drip Interval History: 03/18/2025-No overnight issues. Patient is seen and examined He is resting in his bed, not in acute distress, he is complaining to cold in his room, informed bedside nurse, also he wants to be discharged but his INR is still low, explained about risks of being discharged with low INR, he is okay for now Labs reviewed ESRD picture, potassium 3.4, replaced, INR 1.5, hemoglobin 9.1 Case and plan discussed with patient and bedside nurse. All questions answered. Past Medical History: Medical History[1] Adult diet Regular; Low Sodium (2 gm) 24HR INTAKE/OUTPUT: Intake/Output Summary (Last 24 hours) at 03/18/2025 6966 Last data filed at 03/17/2025 1948 Gross per 24 hour Intake 520 ml Output 100 ml Net 420 ml LABS: CBC: Recent Labs 03/16/25 0155 03/17/257 03/18/25158 WBC 7.0 6.7 7.6 RBC 3.02* 3.31* 3.03* HGB 9.1* 10.0* 9.1* HCT 30.2* 33.8* 30.4* MCV 100.0* 102.1* 100.3* RDW 21.2* 21.2* 20.6* PLT 372 407 333 BMP: Recent Labs 03/16/2515403/17/257 03/18/25 015 NA 139 141 139 K 4.1 3.9 3.4* CL 104 104 100 CO2 26 25 29 BUN 18 22 16 CREATININE 2.35* 3.25* 2.64* GLUCOSE 83 87 73* CALCIUM 9.1 9.6 9.0 ANIONGAP 9 12 10 LIVER PROFILE: Recent Labs 03/16/2515403/17/254603/18/25158 AST 47* 54* 50* ALT 13 15 11 BILITOT 0.9 0.9 0.8 ALKPHOS 194* 223* 241* PROT 7.3 8.0 7.3 PT/INR: Recent Labs 03/16/2515403/17/254603/18/25158 PROTIME 17.3* 16.0* 15.2* INR 1.7* 1.5* 1.5* CARDIAC ENZYMES: No results for input(s): "TROPONINI" in the last 72 hours. Procalcitonin: No results found for: "PROCAL" COVID-19 PCR: No results for input(s): "COVID19" in the last 72 hours. Objective: Vitals: BP 141/78 (BP Location: Right arm, Patient Position: Lying) Pulse 80 Temp 36.2 C (97.2 F) (Temporal) Resp 18 Ht 5' 10" (1.778 m) Wt 143 lb 3.2 oz (65 kg) SpO2 99% BMI 20.55 kg/m Pulse Ox: SpO2 Av.3 % Min: 95 % Max: 100 % Supplemental O2: O2 Flow Rate (L/min): 2 L/min Physical Exam HENT: Head: Normocephalic and atraumatic. Mouth/Throat: Mouth: Mucous membranes are moist. Cardiovascular: Rate and Rhythm: Normal rate and regular rhythm. Pulmonary: Effort: Pulmonary effort is normal. Comments: Decreased BS at bases Abdominal: Palpations: Abdomen is soft. Musculoskeletal: Comments: Sacral wound with wound VAC, gangrenous toes noted on first 4 toes on left lower extremity Skin: General: Skin is warm and dry. Neurological: Mental Status: He is alert. Psychiatric: Mood and Affect: Mood normal. Medications: Scheduled PRN Scheduled Meds[2] PRN Meds[3] Continuous Continuous Meds[4] Assessment Data: (CAT1) Reviewed 2 notes from [...] Acute, acute on chronic, unstable/uncontrolled chronic problems/diagnoses: Shortness of breath likely due to fluid overload A-fib/flutter Acute CHF ESRD on HD Sacral wound present on admission Subtherapeutic INR Dry gangrene on toes 1-4 left lower extremity Stable chronic problems affecting care, new non-acute diagnoses: Recent Klebsiella pneumonia with lung abscess S/p mechanical valve replacement on Coumadin IgA nephropathy Hypertension History of CAD, CABG History of intracranial hemorrhage Medical History[5] Plan As a result of the above findings & factors, the following mgmt was pursued: -INR service subtherapeutic, discussed with pharmacy, on heparin drip for bridging -INR 1.5 today - Cardiology consulted, seen the patient, recommendations noted - Nephrology consulted, seen the patient, recommendations noted - Wound care consulted, seen the patient, recommendations noted - Vascular surgery consulted, recommends surgery but patient refuses - PT/OT recommends SNF - am labs, replace lytes prn - PT/OT/CM/SW - delirium precautions: increase activity, limit nighttime disturbances, and avoid anticholinergic meds, benzos, etc - DVT prophylaxis: SCDs and encourage ambulation Complexity: Acute illness or injury posing a threat to life or body function (HIGH). Risk: Advance Directive: Full Code Anticipated Discharge - Date -1 to 2 days - Location -[facility] - Pending the following -clinical course Total time spent (which include face to face and non face to face encounters) : 38 minutes Extended Emergency Contact Information Primary Emergency Contact: Omar Snyder Mobile Relation: Child Secondary Emergency Contact: Toma Mcneil Mobile Relation: Partner [place] Annamarie Dawkins MD Division of Hospital Medicine Inpatient Medical Services/[facility] [place] [1] Past Medical History: Diagnosis Date Acute renal failure (ARF) ([facility]) 10/19/2019 Anemia 12/30/2021 Calcification of abdominal aorta ([facility]) 10/08/202309/[address] abd Diverticulosis 10/08/2023 ESRD on hemodialysis ([facility] ([facility]) 10/26/2019 Hemodialysis patient ([facility]) ([facility]) HTN (hypertension) 12/01/2022 Hypertension IgA nephropathy IgA nephropathy determined by biopsy of kidney 10/26/2019 Missed vaccination due to patient refusal 10/08/2023 Has a number of non-scientific based beliefs which interfere with his understanding and acceptance of the medical benefit of vaccination. Nonrheumatic aortic valve stenosis 10/08/2023 Paroxysmal A-fib ([facility]) ([facility]) 08/18/2023 Tobacco abuse 10/08/2023 [2] Lidocaine, 1 patch, Topical, Daily metoprolol tartrate, 50 mg, Oral, BID pantoprazole, 40 mg, Oral, BID AC sevelamer carbonate, 800 mg, Oral, TID WC sodium zirconium cyclosilicate, 5 g, Oral, Daily [3] PRN medications: acetaminophen OR acetaminophen, heparin, heparin, ipratropium-albuterol, melatonin, ondansetron ODT OR ondansetron, polyethylene glycol (PEG) 3350 [4] heparin, 5-30 Units/kg/hr, Last Rate: 19 Units/kg/hr (03/17/251947) [5] Past Medical History: Diagnosis Date Acute renal failure (ARF) ([facility]) 10/19/2019 Anemia 12/30/2021 Calcification of abdominal aorta ([facility]) 10/08/202309/[address] abd Diverticulosis 10/08/2023 [place] hemodialysis [place] ([facility]) 10/26/2019 Hemodialysis patient ([facility]) ([facility]) HTN (hypertension) 12/01/2022 Hypertension IgA nephropathy IgA nephropathy determined by biopsy of kidney 10/26/2019 Missed vaccination due to patient refusal 10/08/2023 Has a number of non-scientific based beliefs which interfere with his understanding and acceptance of the medical benefit of vaccination. Nonrheumatic aortic valve stenosis 10/08/2023 Paroxysmal A-fib ([facility]) ([facility]) 08/18/2023 Tobacco abuse 10/08/2023 [facility] Anticoagulation Management Service ([facility]) Inpatient Warfarin Consult HPI: Jun Snyder is a 59 y.o. male admitted on 03/13/2025 for SOB (shortness of breath) [R06.02] Medical History[1] Patient is on warfarin for Heart Valve Replacement and has a goal INR 2.0 - 3.0. Warfarin is currently managed by SNF, will be followed by [facility] after return to home. Pt's home dose of warfarin is 1.5 mg on //Wed and 1 mg all other days. However during last admission, patient required much higher dosing (02/20/25 - 03/05/25) S/sx of bleeding= none noted Interacting medications= therapeutic heparin bridge Labs: Recent Labs 03/16/25 0155 03/17/25 0047 03/18/25 0159 HGB 9.1* 10.0* 9.1* HCT 30.2* 33.8* 30.4* PLT 372 407 333 Recent Labs 03/18/25 0159 INR 1.5* Date INR Dose 03/18 1.5 5 mg 03/17 1.5 5 mg 03/16 1.7 2.5 mg 03/15 1.7 2.5 mg 03/14 --- 1.5 mg 03/13 1.7 3 mg Assessment/Plan: 1. Subtherapeutic INR. During last admission, patient required much higher dosing. Up to 7.5 mg on day of discharge still with a subtherapeutic INR. Given severe bleeding earlier this year, will dose cautiously with warfarin 5 mg x 1 again today but suspect his actual warfarin requirements are higher than reported. 2. Monitor for s/s of bleeding and drug interactions. Will adjust dose accordingly. 3. Warfarin is followed by SNF outpatient. [facility] will manage inpatient and take over management once discharged from SNF. Darya Mireles RPh, PharmD, BCPS [facility] is available daily [phone] via [employer]. If no response on Epic Chat then please page [phone]. [1] Past Medical History: Diagnosis Date Acute renal failure (ARF) ([facility]) 10/19/2019 Anemia 12/30/2021 Calcification of abdominal aorta ([facility]) 10/08/202309/[address] abd Diverticulosis 10/08/2023 ESRD on hemodialysis ([facility]) ([facility]) 10/26/2019 Hemodialysis patient ([facility] ([facility]) HTN (hypertension) 12/01/2022 Hypertension IgA nephropathy IgA nephropathy determined by biopsy of kidney 10/26/2019 Missed vaccination due to patient refusal 10/08/2023 Has a number of non-scientific based beliefs which interfere with his understanding and acceptance of the medical benefit of vaccination. Nonrheumatic aortic valve stenosis 10/08/2023 Paroxysmal A-fib ([facility]) ([facility]) 08/18/2023 Tobacco abuse 10/08/2023 Hospitalist Progress Note Subjective: Admit Date: 03/13/2025 PCP: Leilani Troncoso Room#: [id number] A Chief Complaint Patient presents with Shortness of Breath Pt arrived from shelter via EMS. Pt was starting dialysis and feeling short of breath dialysis was stopped and sent to the hospital to be evaluated. Brief Hospital course: Jun is a 59 y.o. male with past medical history of hypertension, IgA nephropathy, ESRD on HD, CAD, history of CABG, history of intracranial bleed, paroxysmal A-fib aortic stenosis, s/p mechanical valve replacement recent admission here from 02/20-03/05 for hemoptysis due to Klebsiella pneumonia with lung abscess presented to [facility] with worsening shortness of breath. He went to dialysis on 03/13, but was sent to ED due to worsening shortness of breath. Work up in the ED Afebrile, blood pressure 146/94, tachycardic with heart rate ranging from 110s to 120s, was placed on 2 L of oxygen oxygen saturation 98% on 2 L CBC-hemoglobin of 8.5 close to baseline BMP-BUN of 41 creatinine of 3.32, potassium of 3.5 albumin of 1.5 Troponins-elevated at 39 likely due to ESRD EKG-atrial flutter CXR-cardiomegaly with pulmonary venous congestion CT chest revealed congestive heart failure with mild interstitial pulmonary edema, small pleural effusion. No acute lung consolidation. Multifocal areas of irregular pulmonary fibrosis. New ascites, omental edema and nodularity in upper abdomen He was transferred from [facility] to [facility] due to bed availability Nephrology consulted, seen the patient, recommendations noted Cardiology consulted, seen the patient, recommendations noted Wound care consulted, seen the patient, recommendations noted Vascular consulted, seen the patient, recommends left TMA, patient refuses surgery, follow-up with Ortho PT/OT recommends SNF Discussed with pharmacy, as INR subtherapeutic started on bridging with heparin drip Interval History: 03/17/2025-No overnight issues. Patient is seen and examined Patient is comfortably resting in his bed, NAD, denies any new acute complaints Labs reviewed ESRD picture Case and plan discussed with patient and bedside nurse. All questions answered. Past Medical History: Medical History[1] Adult diet Regular; Low Sodium (2 gm) 24HR INTAKE/OUTPUT: No intake or output data in the 24 hours ending 03/17/25 0933 LABS: CBC: Recent Labs 03/15/254 03/16/2515403/17/2546 WBC 6.7 7.0 6.7 RBC 3.02* 3.02* 3.31* HGB 9.2* 9.1* 10.0* HCT 30.1* 30.2* 33.8* MCV 99.7* 100.0* 102.1* RDW 21.3* 21.2* 21.2* PLT 392 372 407 BMP: Recent Labs 03/15/2543303/16/25 0155 03/17/2546 NA 139 139 141 K 4.5 4.1 3.9 CL 100 104 104 CO2 28 26 25 BUN 30* 18 22 CREATININE 3.13* 2.35* 3.25* GLUCOSE 91 83 87 CALCIUM 9.2 9.1 9.6 ANIONGAP 11 9 12 LIVER PROFILE: Recent Labs 03/15/25 0434 03/16/25 0155 03/17/25 0047 AST 49* 47* 54* ALT 14 13 15 BILITOT 0.8 0.9 0.9 ALKPHOS 201* 194* 223* PROT 7.6 7.3 8.0 PT/INR: Recent Labs 03/15/25 0434 03/16/25 0155 03/17/25 0047 PROTIME 17.9* 17.3* 16.0* INR 1.7* 1.7* 1.5* CARDIAC ENZYMES: No results for input(s): "TROPONINI" in the last 72 hours. Procalcitonin: No results found for: "PROCAL" COVID-19 PCR: No results for input(s): "COVID19" in the last 72 hours. Objective: Vitals: BP 132/90 Pulse 80 Temp 37.3 C (99.2 F) Resp 16 Ht 5' 10" (1.778 m) Wt 142 lb (64.4 kg) SpO2 100% BMI 20.37 kg/m Pulse Ox: SpO2 Av % Min: 100 % Max: 100 % Supplemental O2: O2 Flow Rate (L/min): 4 L/min Physical Exam HENT: Head: Normocephalic and atraumatic. Mouth/Throat: Mouth: Mucous membranes are moist. Cardiovascular: Rate and Rhythm: Regular rhythm. Tachycardia present. Pulmonary: Effort: Pulmonary effort is normal. Comments: Decreased BS at bases Abdominal: Palpations: Abdomen is soft. Musculoskeletal: Comments: Sacral wound with wound VAC, gangrenous toes noted on first 4 toes on left lower extremity Skin: General: Skin is warm and dry. Neurological: Mental Status: He is alert. Psychiatric: Mood and Affect: Mood normal. Medications: Scheduled PRN Scheduled Meds[2] PRN Meds[3] Continuous Continuous Meds[4] Assessment Data: (CAT1) Reviewed 2 notes from [...] Acute, acute on chronic, unstable/uncontrolled chronic problems/diagnoses: Shortness of breath likely due to fluid overload A-fib/flutter Acute CHF ESRD on HD Sacral wound present on admission Subtherapeutic INR Dry gangrene on toes 1-4 left lower extremity Stable chronic problems affecting care, new non-acute diagnoses: Recent Klebsiella pneumonia with lung abscess S/p mechanical valve replacement on Coumadin IgA nephropathy Hypertension History of CAD, CABG History of intracranial hemorrhage Medical History[5] Plan As a result of the above findings & factors, the following mgmt was pursued: -INR service subtherapeutic, discussed with pharmacy, started on heparin drip for bridging - Cardiology consulted, seen the patient, recommendations noted - Nephrology consulted, seen the patient, recommendations noted - Wound care consulted, seen the patient, recommendations noted - Vascular surgery consulted, recommends surgery but patient refuses, appreciated - PT/OT recommends SNF - am labs, replace lytes prn - PT/OT/CM/SW - delirium precautions: increase activity, limit nighttime disturbances, and avoid anticholinergic meds, benzos, etc - DVT prophylaxis: SCDs and encourage ambulation Complexity: Acute illness or injury posing a threat to life or body function (HIGH). Risk: Advance Directive: Full Code Anticipated Discharge - Date -1 to 2 days - Location -SNF - Pending the following -clinical course Total time spent (which include face to face and non face to face encounters) : 39 minutes Extended Emergency Contact Information Primary Emergency Contact: Omar Snyder Mobile Relation: Child Secondary Emergency Contact: Toma Mcneil Mobile Relation: Partner Barb Dawkins MD Division of Hospital Medicine Inpatient Medical Services/[facility] [place] [1] Past Medical History: Diagnosis Date Acute renal failure (ARF) ([facility]) 10/19/2019 Anemia 12/30/2021 Calcification of abdominal aorta ([facility]) 10/08/202309/[address] abd Diverticulosis 10/08/2023 ESRD on hemodialysis ([facility]) ([facility]) 10/26/2019 Hemodialysis patient ([facility]) ([facility]) HTN (hypertension) 12/01/2022 Hypertension IgA nephropathy IgA nephropathy determined by biopsy of kidney 10/26/2019 Missed vaccination due to patient refusal 10/08/2023 Has a number of non-scientific based beliefs which interfere with his understanding and acceptance of the medical benefit of vaccination. Nonrheumatic aortic valve stenosis 10/08/2023 Paroxysmal A-fib ([facility] ([facility]) 08/18/2023 Tobacco abuse 10/08/2023 [2] Lidocaine, 1 patch, Topical, Daily metoprolol tartrate, 25 mg, Oral, q6h pantoprazole, 40 mg, Oral, BID AC sevelamer carbonate, 800 mg, Oral, TID WC sodium zirconium cyclosilicate, 5 g, Oral, Daily [3] PRN medications: acetaminophen OR acetaminophen, ipratropium-albuterol, melatonin, ondansetron ODT OR ondansetron, polyethylene glycol (PEG) 3350 [4] [5] Past Medical History: Diagnosis Date Acute renal failure (ARF) ([facility]) 10/19/2019 Anemia 12/30/2021 Calcification of abdominal aorta ([facility]) 10/08/202309/[address] abd Diverticulosis 10/08/2023 ESRD on hemodialysis ([facility]) ([facility]) 10/26/2019 Hemodialysis patient ([facility]) ([facility]) HTN (hypertension) 12/01/2022 Hypertension IgA nephropathy IgA nephropathy determined by biopsy of kidney 10/26/2019 Missed vaccination due to patient refusal 10/08/2023 Has a number of non-scientific based beliefs which interfere with his understanding and acceptance of the medical benefit of vaccination. Nonrheumatic aortic valve stenosis 10/08/2023 Paroxysmal A-fib ([facility]) ([facility]) 08/18/2023 Tobacco abuse 10/08/2023 Nephrology Progress Note Following for ESRD Pt seen in dialysis no complaints today Current Inpatient Medications: Reviewed on NOV. Vitals: BP 135/83 (BP Location: Right arm, Patient Position: Sitting) Pulse 75 Temp 36.1 C (97 F) (Temporal) Resp 16 Ht 1.778 m (5' 10") Wt 64.4 kg (142 lb) SpO2 100% BMI 20.37 kg/m BLOOD PRESSURE RANGE: Systolic (24hrs), Av , Min:129 , Max:148 ; Diastolic (24hrs), Av, Min:45, Max:86 24HR INTAKE/OUTPUT: No intake or output data in the 24 hours ending 03/17/25 0743 Physical exam: Constitutional: NAD Neck: no bruits or jvd noted Cardiovascular: Normal S1, S2 without m/r/g Respiratory: CTAB without w/r/r Abdomen: +bs, soft, nt, nd Ext: no lower extremity edema Data: Labs: Recent Labs 03/15/254 03/16/25 0155 03/17/25 0047 WBC 6.7 7.0 6.7 HGB 9.2* 9.1* 10.0* HCT 30.1* 30.2* 33.8* MCV 99.7* 100.0* 102.1* PLT 392 372 407 Recent Labs 03/15/2543303/16/25 0155 03/17/25 0047 NA 139 139 141 K 4.5 4.1 3.9 CL 100 104 104 CO2 28 26 25 GLUCOSE 91 83 87 CALCIUM 9.2 9.1 9.6 MG 2.0 2.0 2.2 BUN 30* 18 22 CREATININE 3.13* 2.35* 3.25* Assessment and Plan: 59-year-old male with ESRD on hemodialysis due to IgA nephropathy, presenting with fluid overload, shortness of breath, and atrial flutter. Complex comorbidities include CAD s/p CABG, mechanical valve on warfarin (subtherapeutic INR), prior ICH, anemia, hypoalbuminemia, chronic wounds, and dry gangrene of LLE toes. Plan: Seen on HD Continue TTS HD with aggressive ultrafiltration for volume control. Monitor weights, BP, and fluid balance closely. Nephrology to evaluate dialysis adequacy and adjust dry weight. Monitor electrolytes, BUN/Cr, and albumin. Hold nephrotoxic agents; dose meds renally. Coordinate with cardiology for rate control and anticoagulation in atrial flutter. Vascular surgery and wound care following for dry gangrene and sacral wound. Wellington Nicole MD' Please call [phone] or message me through [employer] with any questions or concerns. [facility] Anticoagulation Management Service ([facility]) Inpatient Warfarin Consult HPI: Jun Snyder is a 59 y.o. male admitted on 03/13/2025 for SOB (shortness of breath) [R06.02] Medical History[1] Patient is on warfarin for Heart Valve Replacement and has a goal INR 2.0 - 3.0. Warfarin is currently managed by SNF, will be followed by [facility] after return to home. Pt's home dose of warfarin is 1.5 mg on //Wed and 1 mg all other days. However during last admission, patient required much higher dosing (02/20/25 - 03/05/25) S/sx of bleeding= none noted Interacting medications= none Labs: Recent Labs 03/15/25 0434 03/16/25 0155 03/17/25 0047 HGB 9.2* 9.1* 10.0* HCT 30.1* 30.2* 33.8* PLT 392 372 407 Recent Labs 03/17/25 0047 INR 1.5* Date INR Dose 03/17 1.5 5 mg 03/16 1.7 2.5 mg 03/15 1.7 2.5 mg 03/14 --- 1.5 mg 03/13 1.7 3 mg Assessment/Plan: 1. Subtherapeutic INR and continuing to drop. During last admission, patient required much higher dosing. Up to 7.5 mg on day of discharge still with a subtherapeutic INR. Given severe bleeding earlier this year, will dose cautiously with warfarin 5 mg x 1 today. 2. Monitor for s/s of bleeding and drug interactions. Will adjust dose accordingly. 3. Warfarin is followed by SNF outpatient. [facility] will manage inpatient and take over management once discharged from SNF. 4. Given mechanical heart valve, recommend bridging with heparin while INR is subtherapeutic. Darya Mireles [facility], PharmD [facility] is available daily [phone] via [employer]. If no response on [employer] then please page [phone]. [1] Past Medical History: Diagnosis Date Acute renal failure (ARF) ([facility]CC) 10/19/2019 Anemia 12/30/2021 Calcification of abdominal aorta (HCC) 10/08/202309/[address] abd Diverticulosis 10/08/2023 ESRD on hemodialysis ([facility]) ([facility]) 10/26/2019 Hemodialysis patient ([facility]) ([facility]) HTN (hypertension) 12/01/2022 Hypertension IgA nephropathy IgA nephropathy determined by biopsy of kidney 10/26/2019 Missed vaccination due to patient refusal 10/08/2023 Has a number of non-scientific based beliefs which interfere with his understanding and acceptance of the medical benefit of vaccination. Nonrheumatic aortic valve stenosis 10/08/2023 Paroxysmal A-fib ([facility]) ([facility]) 08/18/2023 Tobacco abuse 10/08/2023 Images from the original note were not included. OCCUPATIONAL THERAPY [facility] Initial Evaluation Name/MRN: Jair Snyder ([id number]) Evaluation Date: 03/16/2025 Date of : 1965 Admission Date: 03/13/2025 8:18 AM Age: 59 y.o. Room[facility]Bed: [facility] A Discharge Recommendation: Detention Facility Assessment IMPRESSION: Pt presented with SOB, fluid over load d/t CHF. Pt has a history of a sacral wound with a wound vac. Pt was at rehab receiving skilled therapy therefore required assist for ADLs. Pt currently requires mod assist for bed mobility, mod assist for standing, min assist for standing balance, and max assist for ADLs. OT recommending Snf. Admitting Diagnosis: see above Performance Deficits /Impairments: Increased Pain, Decreased Functional Mobility, Decreased ADL status, Decreased Strength, Decreased Safety Awareness, Decreased Endurance, Decreased Balance, Decreased ROM, and Decreased High Level IADLs Prognosis: Fair Decision Making: Medium Complexity Subjective Pt supine in bed, agreeable to OT eval. Pain: Michel-Nolasco Pain Ratin = Hurts whole lot Pain Location: sacral wound Past Medical History: Medical History[1] Past Surgical History: Surgical History[2] Admission Diagnosis: Patient Active Problem List Diagnosis Date Noted Moderate malnutrition ([facility]) ([facility]) 03/14/2025 SOB (shortness of breath) 03/13/2025 Severe malnutrition ([facility]) ([facility]) 02/21/2025 Hemoptysis 02/20/2025 Complication of tracheostomy ([facility]) ([facility]) 01/19/2025 care home (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 01/12/2025 Acute respiratory failure with hypoxia ([facility]) [J96.01] 01/08/2025 Tracheostomy care ([facility]) [Z43.0] 01/08/2025 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[facility]) 01/08/2025 Sacral osteomyelitis ([facility]) ([facility]) 01/03/2025 Pneumonia of both lungs due to methicillin susceptible Staphylococcus aureus (MSSA) ([facility]) 01/01/2025 Leukocytosis 12/30/2024 Decubitus ulcer of sacral region, unstageable ([facility]) 12/30/2024 Peritonitis due to fungus ([facility]) 11/30/2024 History of abdominal surgery 11/30/2024 Leg DVT (deep venous thromboembolism), acute, left ([facility]) 11/30/2024 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, 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 of skin ([facility]) 11/30/2024 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 Pleural effusion 11/28/2024 Gastric ulceration 2024 Atrial flutter, unspecified type ([facility]) 10/03/2024 RSV (acute bronchiolitis due to respiratory syncytial virus) 10/03/2024 Diverticulosis 10/08/2023 Nonrheumatic aortic valve stenosis 10/08/2023 Calcification of abdominal aorta ([facility]) 10/08/2023 Missed vaccination due to patient refusal 10/08/2023 Tobacco abuse 10/08/2023 Alcohol use disorder in remission 10/08/2023 Paroxysmal A-fib ([facility]) ([facility]) 08/18/2023 HTN (hypertension) 12/01/2022 ESRD on hemodialysis ([facility]) ([facility]) 10/26/2019 IgA nephropathy determined by biopsy of kidney 10/26/2019 BRBPR (bright red blood per rectum) 01/19/2025 Aortic stenosis 10/03/2024 Upper GI bleed 10/03/2024 S/P AVR 10/03/2024 Acute hypoxic respiratory failure ([facility]) 10/03/2024 Acute encephalopathy 10/03/2024 Pneumoperitoneum 10/03/2024 Anemia 12/30/2021 Medical Precautions: No active isolations Proper PPE donned/doffed in accordance with facility standards. Fall Risk: Roque Fall Risk Score: 75 (Low Risk) Roque Fall Risk Score: 75 (High Risk) Precautions/Restrictions: Lines/Drains/Airways: O2, wound vac, tele Family/Caregiver Present: none Overall Cognitive Status: grossly functional some what agitated during entire session Overall Orientation Status: Oriented x4 Social/Functional History Patient admitted from SNF. Assistive Equipment: front wheeled walker Prior Level of Function Prior Level of ADL Function: Required Assist Prior Level of Mobility: Independent; Device: Front wheeled walker Prior Level of Transfers: Independent Objective ADLs LE Dressing: Max Assist, B socks Upper Extremity Assessment AROM: WFL PROM: Not assessed this session Strength: Exceptions: generalized weakness Bed Mobility Supine to sit: Mod Assist, assist to elevate trunk Sit to supine: Min Assist, assist for LE Transfers/Mobility Sit to stand: Mod Assist Stand to sit: Min Assist Standing balance: Min Assist Assist to elevate from EOB, limited by pain in sacral wound Device(s) used: None AM-PAC AM-PAC Inpatient Daily Activity Raw Score: 17 ADL Inpatient [facility] G-Code Modifier: CK Plan Pt would benefit from skilled acute OT services to address Strengthening, ROM, Gait Training, Balance Training, Self-Care/ADL Training, Functional Mobility Training, Endurance Training, Safety Education and Training, and Pain Management. Frequency: 3x/week for 4 weeks Barriers: Pain, Impaired balance, Lower extremity weakness, Limited safety awareness, Decreased endurance, and Upper extremity weakness Safety/Education Safety Safety Devices in place: All fall risk precautions in place, call light within reach, and left in bed Restraints: No Education Education Given To: patient Education Provided: OT Role, Plan of Care, and Discharge Recommendations Education Method: Verbal Barriers to Learning: Education Outcome: Goals Patient Stated [facility] Encounter Problems Encounter Problems (Active) Balance Patient will maintain static standing balance for 3 minutes with supervision in order to demonstrate decreased risk of falling. Start: 03/16/25 Expected End: 04/13/25 Dressings Lower Extremities Patient will dress lower body with supervision Start: 03/16/25 Expected End: 04/13/25 Mobility Patient will demonstrate functional ambulation with supervision Start: 03/16/25 Expected End: 04/13/25 Toileting Patient will complete toileting tasks at standard toilet with supervision. Start: 03/16/25 Expected End: 04/13/25 Transfers Patient will complete functional transfer with least restrictive device with supervision in order to prepare for ambulation. Start: 03/16/25 Expected End: 04/13/25 Patient will perform bed mobility with supervision in order to improve independence and prepare for out of bed mobility. Start: 03/16/25 Expected End: 04/13/25 Therapy Time Individual Co-Treatment Co-Evaluation Time In 1114 Time Out 1129 Minutes 15 Jenni Argueta OT Patient's Occupational Therapy Plan of Care supervision is transferred to a [facility] Therapy Services Occupational Therapist. Goals and/or treatment plan was established in collaboration with patient/family/other representatives. [1] Past Medical History: Diagnosis Date Acute renal failure (ARF) ([facility]) 10/19/2019 Anemia 12/30/2021 Calcification of abdominal aorta ([facility]) 10/08/202309/[address] abd Diverticulosis 10/08/2023 ESRD on hemodialysis ([facility]) ([facility]) 10/26/2019 Hemod[place] patient ([facility] ([facility]) HTN (hypertension) 12/01/2022 Hypertension IgA nephropathy IgA nephropathy determined by biopsy of kidney 10/26/2019 Missed vaccination due to patient refusal 10/08/2023 Has a number of non-scientific based beliefs which interfere with his understanding and acceptance of the medical benefit of vaccination. Nonrheumatic aortic valve stenosis 10/08/2023 Paroxysmal A-fib ([facility]) ([facility]) 08/18/2023 Tobacco abuse 10/08/2023 [2] Past Surgical History: Procedure Laterality Date APPENDECTOMY CARDIAC CATHETERIZATION N/A 10/09/2024 Performed by Bob Watson MD at [facility] Cardiac Cath/EP Lab CARDIAC CATHETERIZATION Bilateral 11/01/2024 Performed by Bob Watson MD at [facility] Cardiac Cath/EP Lab CARDIAC CATHETERIZATION N/A 11/01/2024 Performed by Bob Watson MD at [facility] Cardiac Cath/EP Lab COLONOSCOPY N/A 01/24/2025 Performed by Chadd Davis MD at [facility] ENDOSCOPY FISTULAGRAM (HISTORICAL) Left 09/15/2021 LEFT UPPER ARM HX AV FISTULA CREATION IR EMBOLIZATION 10/14/2024 IR EMBOLIZATION 10/14/2024 [facility] SPECIAL PROCEDURES IR FISTULAGRAM 08/07/2022 IR FISTULAGRAM 08/07/2022 [facility] IR IMAGING TONSILLECTOMY (HISTORICAL) Hospitalist Progress Note Subjective: Admit Date: 03/13/2025 PCP: Leilani Troncoso Room#: [id number] A Chief Complaint Patient presents with Shortness of Breath Pt arrived from shelter via EMS. Pt was starting dialysis and feeling short of breath dialysis was stopped and sent to the hospital to be evaluated. Brief Hospital course: Jun is a 59 y.o. male with past medical history of hypertension, IgA nephropathy, ESRD on HD, CAD, history of CABG, history of intracranial bleed, paroxysmal A-fib aortic stenosis, s/p mechanical valve replacement recent admission here from 02/20-03/05 for hemoptysis due to Klebsiella pneumonia with lung abscess presented to [facility] with worsening shortness of breath. He went to dialysis on 03/13, but was sent to ED due to worsening shortness of breath. Work up in the ED Afebrile, blood pressure 146/94, tachycardic with heart rate ranging from 110s to 120s, was placed on 2 L of oxygen oxygen saturation 98% on 2 L CBC-hemoglobin of 8.5 close to baseline BMP-BUN of 41 creatinine of 3.32, potassium of 3.5 albumin of 1.5 Troponins-elevated at 39 likely due to ESRD EKG-atrial flutter CXR-cardiomegaly with pulmonary venous congestion CT chest revealed congestive heart failure with mild interstitial pulmonary edema, small pleural effusion. No acute lung consolidation. Multifocal areas of irregular pulmonary fibrosis. New ascites, omental edema and nodularity in upper abdomen He was transferred from [facility] to [facility] due to bed availability Nephrology consulted, seen the patient, recommendations noted Cardiology consulted, seen the patient, recommendations noted Wound care consulted, seen the patient, recommendations noted Vascular consulted, seen the patient, recommends left TMA, patient refuses surgery, follow-up with Ortho PT/OT recommends SNF Interval History: 03/16/2025-No overnight issues. Patient is seen and examined He is sleeping in his bed, not in acute distress, reports no new acute complaints Labs reviewed ESRD picture, TSH 6.88, free T4 normal Case and plan discussed with patient and bedside nurse. All questions answered. Past Medical History: Medical History[1] Adult diet Regular; Low Sodium (2 gm) 24HR INTAKE/OUTPUT: Intake/Output Summary (Last 24 hours) at 03/16/2025 1350 Last data filed at 03/16/2025 0550 Gross per 24 hour Intake 600 ml Output -- Net 600 ml LABS: CBC: Recent Labs 03/15/25 0434 03/16/25 0155 WBC 6.7 7.0 RBC 3.02* 3.02* HGB 9.2* 9.1* HCT 30.1* 30.2* MCV 99.7* 100.0* RDW 21.3* 21.2* PLT 392 372 BMP: Recent Labs 03/14/25 0507 03/15/25 0434 03/16/25 0155 NA 141 139 139 K 5.2* 4.5 4.1 CL 102 100 104 CO2 28 28 26 BUN 57* 30* 18 CREATININE 4.96* 3.13* 2.35* GLUCOSE 99 91 83 CALCIUM 10.1 9.2 9.1 ANIONGAP 11 11 9 LIVER PROFILE: Recent Labs 03/15/25 0434 03/16/25 0155 AST 49* 47* ALT 14 13 BILITOT 0.8 0.9 ALKPHOS 201* 194* PROT 7.6 7.3 PT/INR: Recent Labs 03/15/25 0434 03/16/25 0155 PROTIME 17.9* 17.3* INR 1.7* 1.7* CARDIAC ENZYMES: No results for input(s): "TROPONINI" in the last 72 hours. Procalcitonin: No results found for: "PROCAL" COVID-19 PCR: No results for input(s): "COVID19" in the last 72 hours. Objective: Vitals: BP 153/85 (BP Location: Right arm, Patient Position: Lying) Pulse 81 Temp 37 C (98.6 F) (Temporal) Resp 20 Ht 5' 10" (1.778 m) Wt 143 lb (64.9 kg) SpO2 100% BMI 20.52 kg/m Pulse Ox: SpO2 Av.4 % Min: 98 % Max: 100 % Supplemental O2: O2 Flow Rate (L/min): 4 L/min Physical Exam HENT: Head: Normocephalic and atraumatic. Mouth/Throat: Mouth: Mucous membranes are moist. Cardiovascular: Rate and Rhythm: Regular rhythm. Tachycardia present. Pulmonary: Effort: Pulmonary effort is normal. Comments: Decreased BS at bases Abdominal: Palpations: Abdomen is soft. Musculoskeletal: Comments: Sacral wound with wound VAC, gangrenous toes noted on first 4 toes on left lower extremity Skin: General: Skin is warm and dry. Neurological: Mental Status: He is alert. Psychiatric: Mood and Affect: Mood normal. Medications: Scheduled PRN Scheduled Meds[2] PRN Meds[3] Continuous Continuous Meds[4] Assessment Data: (CAT1) Reviewed 2 notes from [...] Acute, acute on chronic, unstable/uncontrolled chronic problems/diagnoses: Shortness of breath likely due to fluid overload A-fib/flutter Acute CHF ESRD on HD Sacral wound present on admission Subtherapeutic INR Dry gangrene on toes 1-4 left lower extremity Stable chronic problems affecting care, new non-acute diagnoses: Recent Klebsiella pneumonia with lung abscess S/p mechanical valve replacement on Coumadin IgA nephropathy Hypertension History of CAD, CABG History of intracranial hemorrhage Medical History[5] Plan As a result of the above findings & factors, the following mgmt was pursued: - Cardiology consulted, seen the patient, recommendations noted - Nephrology consulted, seen the patient, recommendations noted - Wound care consulted, seen the patient, recommendations noted - Vascular surgery consulted, recommends surgery but patient refuses, appreciated - PT/OT recommends SNF - am labs, replace lytes prn - PT/OT/CM/SW - delirium precautions: increase activity, limit nighttime disturbances, and avoid anticholinergic meds, benzos, etc - DVT prophylaxis: SCDs and encourage ambulation Complexity: Acute illness or injury posing a threat to life or body function (HIGH). Risk: Advance Directive: Full Code Anticipated Discharge - Date -1 to 2 days - Location -SNF - Pending the following -clinical course Total time spent (which include face to face and non face to face encounters) : 36 minutes Extended Emergency Contact Information Primary Emergency Contact: Omar Snyder Mobile Relation: Child Secondary Emergency Contact: Toma Mcneil Mobile Relation: Partner [employer] Annamarie Dawkins MD Division of Hospital Medicine Inpatient Medical Services/[facility] [1] Past Medical History: Diagnosis Date Acute renal failure (ARF) ([facility]) 10/19/2019 Anemia 12/30/2021 Calcification of abdominal aorta ([facility]) 10/08/202309/[address] abd Diverticulosis 10/08/2023 ESRD on hemodialysis ([facility] ([facility]) 10/26/2019 Hemodialysis patient ([facility]) ([facility]) HTN (hypertension) 12/01/2022 Hypertension IgA nephropathy IgA nephropathy determined by biopsy of kidney 10/26/2019 Missed vaccination due to patient refusal 10/08/2023 Has a number of non-scientific based beliefs which interfere with his understanding and acceptance of the medical benefit of vaccination. Nonrheumatic aortic valve stenosis 10/08/2023 Paroxysmal A-fib ([facility]) ([facility]) 08/18/2023 Tobacco abuse 10/08/2023 [2] Lidocaine, 1 patch, Topical, Daily metoprolol tartrate, 25 mg, Oral, q6h pantoprazole, 40 mg, Oral, BID AC sevelamer carbonate, 800 mg, Oral, TID WC sodium zirconium cyclosilicate, 5 g, Oral, Daily warfarin, 2.5 mg, Oral, Once [3] PRN medications: acetaminophen OR acetaminophen, ipratropium-albuterol, melatonin, ondansetron ODT OR ondansetron, polyethylene glycol (PEG) 3350 [4] [5] Past Medical History: Diagnosis Date Acute renal failure (ARF) ([facility]) 10/19/2019 Anemia 12/30/2021 Calcification of abdominal aorta ([facility]) 10/08/202309/[address] abd Diverticulosis 10/08/2023 ESRD on hemodialysis ([facility]) ([facility]) 10/26/2019 Hemodialysis patient ([facility]) ([facility]) HTN (hypertension) 12/01/2022 Hypertension IgA nephropathy IgA nephropathy determined by biopsy of kidney 10/26/2019 Missed vaccination due to patient refusal 10/08/2023 Has a number of non-scientific based beliefs which interfere with his understanding and acceptance of the medical benefit of vaccination. Nonrheumatic aortic valve stenosis 10/08/2023 Paroxysmal A-fib (CMS/HCC) (HCC) 08/18/2023 Tobacco abuse 10/08/2023 Nephrology Progress Note Following for ESRD Pt seen in room no complaints today Tolerated HD yesterday 1L off Current Inpatient Medications: Reviewed on NOV. Vitals: BP 153/85 (BP Location: Right arm, Patient Position: Lying) Pulse 81 Temp 37 C (98.6 F) (Temporal) Resp 20 Ht 1.778 m (5' 10") Wt 64.9 kg (143 lb) SpO2 100% BMI 20.52 kg/m BLOOD PRESSURE RANGE: Systolic (24hrs), Av , Min:118 , Max:159 ; Diastolic (24hrs), Av, Min:76, Max:102 24HR INTAKE/OUTPUT: Intake/Output Summary (Last 24 hours) at 03/16/2025 1042 Last data filed at 03/16/2025 0550 Gross per 24 hour Intake 600 ml Output -- Net 600 ml Physical exam: Constitutional: NAD Neck: no bruits or jvd noted Cardiovascular: Normal S1, S2 without m/r/g Respiratory: CTAB without w/r/r Abdomen: +bs, soft, nt, nd Ext: no lower extremity edema Data: Labs: Recent Labs 03/15/25 0434 03/16/25 0155 WBC 6.7 7.0 HGB 9.2* 9.1* HCT 30.1* 30.2* MCV 99.7* 100.0* PLT 392 372 Recent Labs 03/14/25 0507 03/15/25 0434 03/16/25 0155 NA 141 139 139 K 5.2* 4.5 4.1 CL 102 100 104 CO2 28 28 26 GLUCOSE 99 91 83 CALCIUM 10.1 9.2 9.1 MG 2.2 2.0 2.0 BUN 57* 30* 18 CREATININE 4.96* 3.13* 2.35* Assessment and Plan: 59-year-old male with ESRD on hemodialysis due to IgA nephropathy, presenting with fluid overload, shortness of breath, and atrial flutter. Complex comorbidities include CAD s/p CABG, mechanical valve on warfarin (subtherapeutic INR), prior ICH, anemia, hypoalbuminemia, chronic wounds, and dry gangrene of LLE toes. Plan: Continue TTS HD with aggressive ultrafiltration for volume control. Monitor weights, BP, and fluid balance closely. Nephrology to evaluate dialysis adequacy and adjust dry weight. Monitor electrolytes, BUN/Cr, and albumin. Hold nephrotoxic agents; dose meds renally. Coordinate with cardiology for rate control and anticoagulation in atrial flutter. Vascular surgery and wound care following for dry gangrene and sacral wound. Thank you for allowing me to care for pt. Feel free to reach out with any questions or concerns Bree Molina APRN PANTS PRESSER A-G WIRED MUSIC OPERATOR [facility] [phone] Pt seen and examined independently by me. I reviewed with FLOWER CHENILLER-PANTS PRESSER the medical history and the findings on physical examination. I discussed the patient s diagnosis and concur with the treatment plan as documented in his note. Please call [phone] or message me through Audiotoni[employer] with any questions or concerns. Images from the original note were not included. [facility] Wound VAC Progress Note Jun Snyedr AGE: 59 y.o. GENDER: male : 1965 Subjective: HISTORY of PRESENT ILLNESS HPI Jun Snyder is a 59 y.o. male who presents for a wound care follow up and NPWT application/management. HPI: Patient is a 59 y.o. male with past medical history of hypertension, IgA nephropathy, ESRD on HD, CAD, history of CABG, history of intracranial bleed, paroxysmal A-fib aortic stenosis, s/p mechanical valve replacement recent admission here from 02/20-03/05 for hemoptysis due to Klebsiella pneumonia with lung abscess. He went to dialysis today, but was sent to ED due to worsening shortness of breath. Wound Care consulted for wound vac and left toes Patient resting in bed. Denies any needs. Wound vac dressing changed at time of visit with patient tolerating well. PAST MEDICAL HISTORY Medical History[1] PAST SURGICAL HISTORY Surgical History[2] FAMILY HISTORY Family History[3] SOCIAL HISTORY Social History[4] ALLERGIES Allergies[5] MEDICATIONS Medications Ordered Prior to Encounter[6] REVIEW OF SYSTEMS Pertinent items are noted in HPI. Objective: BP 153/85 (BP Location: Right arm, Patient Position: Lying) Pulse 81 Temp 37 C (98.6 F) (Temporal) Resp 20 Ht 1.778 m (5' 10") Wt 64.9 kg (143 lb) SpO2 100% BMI 20.52 kg/m PHYSICAL EXAM General appearance: in no apparent distress, non-toxic, alert, and cooperative Skin: warm and dry Pulmonary: Normal effort, no respiratory distress, no cyanosis Left toes 1-4: Necrotic tissue. No open wounds. No drainage present. Odor noted. Stable. 03/14/25 Sacrum: Focused assessment on wound VAC dressing change. Patient premedicated for pain with IV pain medication, per staff interpreter, prior to wound VAC dressing change. 1 piece of black foam removed from wound with saline without any difficulties. Small amount of serosang drainage noted from wound. No purulence or bleeding. Slight odor present. All wounds and periwounds cleansed with saline, patted dry and cavilon no sting applied to periwound. Patient's stage 4 pressure injury wound measuring 7 x 5 x 0.8cm. Wound bed with pink tissue with bone. Applied 1 piece of black foam. non-disposable Wound VAC well sealed at 125 mmHg continuous suction. 03/16/25 LABS CBC: Lab Results Component Value Date WBC 7.0 03/16/2025 HGB 9.1 (L) 03/16/2025 HCT 30.2 (L) 03/16/2025 MCV 100.0 (H) 03/16/2025 PLT 372 03/16/2025 BMP: Lab Results Component Value Date NA 139 03/16/2025 K 4.1 03/16/2025 CL 104 03/16/2025 CO2 26 03/16/2025 BUN 18 03/16/2025 CREATININE 2.35 (H) 03/16/2025 PT/INR: Lab Results Component Value Date PROTIME 17.3 (H) 03/16/2025 INR 1.7 (H) 03/16/2025 Prealbumin: No results found for: "PREALBUMIN" Albumin:No components found for: LABALBU Sed Rate:No results found for: SEDRATE Micro: No components found for: BC Assessment/Plan: Sacrum: Stage 4 pressure injury - Clean with NS, apply NPWT. Place black foam to wound bed at 125mmHg continuous, change 3 times a week and PRN - Change cannister once a week or when full. - If suction fails: - remove vac dressing - cleanse wound with normal saline - pack wound with saline moistened gauze and change every 12 hours or at discharge. Nursing staff to perform dressing change: Left toes 1-4: Arterial Ulcer (Unknown) - Cleanse with NS, apply Betadine and allow to dry, leave PUBLIC RELATIONS ANALYST daily and PRN Centrella Pro Plus bed Reposition q2hrs Incontinent checks q2hrs Nutritional support Wound Care to follow Recommend to follow up at [facility] wound care center after hospital discharge. Any [...] 10/19/2019 Anemia 12/30/2021 Calcification of abdominal aorta ([facility]) 10/08/202309/[address] abd Diverticulosis 10/08/2023 ESRD on hemodialysis ([facility]) ([facility]) 10/26/2019 Hemodialysis patient ([facility]) ([facility]) HTN (hypertension) 12/01/2022 Hypertension IgA nephropathy IgA nephropathy determined by biopsy of kidney 10/26/2019 Missed vaccination due to patient refusal 10/08/2023 Has a number of non-scientific based beliefs which interfere with his understanding and acceptance of the medical benefit of vaccination. Nonrheumatic aortic valve stenosis 10/08/2023 Paroxysmal A-fib ([facility]) ([facility]) 08/18/2023 Tobacco abuse 10/08/2023 [2] Past Surgical History: Procedure Laterality Date APPENDECTOMY CARDIAC CATHETERIZATION N/A 10/09/2024 Performed by Bob Watson MD at [facility] Cardiac Cath/EP Lab CARDIAC CATHETERIZATION Bilateral 11/01/2024 Performed by Bob Watson MD at [facility] Cardiac Cath/EP Lab CARDIAC CATHETERIZATION N/A 11/01/2024 Performed by Bob Watson MD at [facility] Cardiac Cath/EP Lab COLONOSCOPY N/A 01/24/2025 Performed by Chadd Davis MD at [facility] ENDOSCOPY FISTULAGRAM (HISTORICAL) Left 09/15/2021 LEFT UPPER ARM HX AV FISTULA CREATION IR EMBOLIZATION 10/14/2024 IR EMBOLIZATION 10/14/2024 [facility] SPECIAL PROCEDURES IR FISTULAGRAM 08/07/2022 IR FISTULAGRAM 08/07/2022 [facility] IR IMAGING TONSILLECTOMY (HISTORICAL) [3] Family History Problem Relation Name Age of Onset No Known Problems Mother No Known Problems Father [4] Social History Tobacco Use Smoking status: Every Day Current packs/day: 1.00 Average packs/day: 1.4 packs/day for 31.3 years (45.2 ttl pk-yrs) Types: Cigarettes Start date: 1993 [...] Prior to Encounter Medication Sig Dispense Refill ipratropium-albuterol (Duo-Neb) 0.5-2.5 mg/3 mL nebulizer solution Take 3 mL by nebulization every 8 hours as needed for shortness of breath. Lidocaine 4 % patch Apply 1 patch topically daily. melatonin 3 MG tablet Take 1 tablet (3 mg) by mouth Nightly as needed for sleep. metoprolol tartrate (Lopressor) 25 MG tablet Take 1 tablet (25 mg) by mouth 2 times daily. 60 tablet 11 pantoprazole (ProtoNix) 40 MG EC tablet Take 1 tablet (40 mg) by mouth 2 times daily (before meals). Do not crush, chew, or split. 60 tablet 11 sevelamer carbonate (Renvela) 800 MG tablet Take 1 tablet (800 mg) by mouth 3 times daily (with meals). Swallow tablet whole; do not crush, break, or chew. 90 tablet 11 sodium zirconium cyclosilicate (Lokelma) 5 g packet Take 5 g by mouth daily. warfarin (Coumadin) 1 MG tablet Take as directed per After Visit Summary. acetaminophen (Tylenol) 325 MG tablet Take 650 mg by mouth every 6 hours as needed for mild pain (1-3), fever or moderate pain (4-6). (Patient not taking: Reported on 03/13/2025) amoxicillin-clavulanate (Augmentin) 500-125 MG tablet Take 1 tablet (500 mg) by mouth daily with supper. Augmentin 500mg q24 (to be taken after HD on HD days) until 03/10/25 (Patient not taking: Reported on 03/13/2025) B complex-vitamin C-folic acid (Nephro-Nato Rx) 1 MG tablet Take 1 tablet by mouth daily. (Patient not taking: Reported on 03/13/2025) bisacodyl (Dulcolax) 10 MG suppository Insert 10 mg into the rectum Daily as needed for constipation. (Patient not taking: Reported on 03/13/2025) bisacodyl (Dulcolax) 5 MG EC tablet Take 5 mg by mouth Daily as needed for constipation. Do not crush, chew, or split. (Patient not taking: Reported on 03/13/2025) magnesium hydroxide (Milk of Magnesia) 800 MG/5ML suspension Take 30 mL by mouth Daily as needed for constipation (if no bm in 3 days). (Patient not taking: Reported on 03/13/2025) naloxone in sodium chloride (PF) injection injection Inject 0.04 mg into the shoulder, thigh, or buttocks as needed for opioid reversal or respiratory depression. QUEtiapine (SEROquel) 25 MG tablet Take 1 tablet (25 mg) by mouth Nightly. (Patient not taking: Reported on 03/13/2025) 30 tablet 0 Cosigned by Ahsan Gill DO at 03/19/2025 4:44 PM EDT [facility] Anticoagulation Management Service ([facility]) Inpatient Warfarin Consult HPI: Jun Snyder is a 59 y.o. male admitted on 03/13/2025 for SOB (shortness of breath) [R06.02] Medical History[1] Patient is on warfarin for Heart Valve Replacement and has a goal INR 2.0 - 3.0. Warfarin is currently managed by SNF, will be followed by [facility] after return to home. Pt's home dose of warfarin is 1.5 mg on , , Wed and 1 mg all other days . S/sx of bleeding= none noted Interacting medications= none Labs: Recent Labs 03/15/25 0434 03/16/25 0155 HGB 9.2* 9.1* HCT 30.1* 30.2* PLT 392 372 Recent Labs 03/16/25 0155 INR 1.7* Date INR Dose 03/16 1.7 2.5 mg 03/15 1.7 2.5 mg 03/14 --- 1.5mg 03/13 1.7 3mg Assessment/Plan: 1. Subtherapeutic INR yesterday, received boost dose. Will give 2.5mg today--higher than home dose 2. Monitor for s/s of bleeding and drug interactions. Will adjust dose accordingly 3. Will facilitate f/u at [facility] upon discharge Kvng Dugan, Natali 2024 Candidate [facility] is available daily [phone] via Epic Chat. If no response on Audiotoniq Chat then please page [phone]. [1] Past Medical History: Diagnosis Date Acute renal failure (ARF) ([facility]) 10/19/2019 Anemia 12/30/2021 Calcification of abdominal aorta ([facility]) 10/08/202309/[address] abd Diverticulosis 10/08/2023 ESRD on hemodialysis ([facility]) ([facility]) 10/26/2019 Hemodialysis patient ([facility] ([facility]) HTN (hypertension) 12/01/2022 Hypertension IgA nephropathy IgA nephropathy determined by biopsy of kidney 10/26/2019 Missed vaccination due to patient refusal 10/08/2023 Has a number of non-scientific based beliefs which interfere with his understanding and acceptance of the medical benefit of vaccination. Nonrheumatic aortic valve stenosis 10/08/2023 Paroxysmal A-fib ([facility]) ([facility]) 08/18/2023 Tobacco abuse 10/08/2023 Cosigned by Tiffanie Dial [facility] at 03/16/2025 10:57 AM EDT Patient currently off unit, will attempt smoking cessation counseling at a later date. Hospitalist Progress Note Subjective: Admit Date: 03/13/2025 PCP: Leilani Troncoso Room#: [id number] A Chief Complaint Patient presents with Shortness of Breath Pt arrived from shelter via EMS. Pt was starting dialysis and feeling short of breath dialysis was stopped and sent to the hospital to be evaluated. Brief Hospital course: Jun is a 59 y.o. male with past medical history of hypertension, IgA nephropathy, ESRD on HD, CAD, history of CABG, history of intracranial bleed, paroxysmal A-fib aortic stenosis, s/p mechanical valve replacement recent admission here from 02/20-03/05 for hemoptysis due to Klebsiella pneumonia with lung abscess presented to [facility] ED with worsening shortness of breath. He went to dialysis on 06/17, but was sent to ED due to worsening shortness of breath. Work up in the ED Afebrile, blood pressure 146/94, tachycardic with heart rate ranging from 110s to 120s, was placed on 2 L of oxygen oxygen saturation 98% on 2 L CBC-hemoglobin of 8.5 close to baseline BMP-BUN of 41 creatinine of 3.32, potassium of 3.5 albumin of 1.5 Troponins-elevated at 39 likely due to ESRD EKG-atrial flutter CXR-cardiomegaly with pulmonary venous congestion CT chest revealed congestive heart failure with mild interstitial pulmonary edema, small pleural effusion. No acute lung consolidation. Multifocal areas of irregular pulmonary fibrosis. New ascites, omental edema and nodularity in upper abdomen He was transferred from [facility] to [facility] due to bed availability Nephrology consulted, seen the patient, recommendations noted Cardiology consulted, seen the patient, recommendations noted Wound care consulted, seen the patient, recommendations noted Vascular consulted PT recommends SNF Interval History: 03/15/2025-No overnight issues. Patient is seen and examined Patient is comfortably sleeping in his bed without any any acute distress, he denies any new acute complaints Labs reviewed ESRD picture, BNP more than 30,000, TSH 6.88, free T4 normal Case and plan discussed with patient and bedside nurse. All questions answered. Past Medical History: Medical History[1] Adult diet Regular; Low Sodium (2 gm) 24HR INTAKE/OUTPUT: Intake/Output Summary (Last 24 hours) at 03/15/2025 1127 Last data filed at 03/15/2025 0630 Gross per 24 hour Intake 650 ml Output -- Net 650 ml LABS: CBC: Recent Labs 03/13/25 0902 03/15/25 0434 WBC 8.0 6.7 RBC 2.86* 3.02* HGB 11.8* 8.5* 9.2* HCT 28.4* 30.1* MCV 99.3* 99.7* RDW 21.2* 21.3* PLT 392 392 BMP: Recent Labs 03/13/25 0945 03/14/25 0507 03/15/25 0434 NA 141 141 139 K 3.5 5.2* 4.5 CL 110* 102 100 CO2 BUN 41* 57* 30* CREATININE 3.32* 4.96* 3.13* GLUCOSE 71* 99 91 CALCIUM 7.3* 10.1 9.2 ANIONGAP 6 11 11 LIVER PROFILE: Recent Labs 03/13/25 0945 03/15/25 0434 AST 37* 49* ALT 7 14 BILITOT 0.5 0.8 ALKPHOS 122 201* PROT 5.5* 7.6 PT/INR: Recent Labs 03/13/25 0902 03/15/25 0434 PROTIME 17.7* 17.9* INR 1.7* 1.7* CARDIAC ENZYMES: No results for input(s): "TROPONINI" in the last 72 hours. Procalcitonin: No results found for: "PROCAL" COVID-19 PCR: No results for input(s): "COVID19" in the last 72 hours. Objective: Vitals: BP 139/89 (BP Location: Right arm, Patient Position: Lying) Pulse 101 Temp 36.3 C (97.3 F) (Temporal) Resp 16 Ht 5' 10" (1.778 m) Wt 143 lb 4.8 oz (65 kg) SpO2 99% BMI 20.56 kg/m Pulse Ox: SpO2 Av.3 % Min: 94 % Max: 100 % Supplemental O2: O2 Flow Rate (L/min): 4 L/min Physical Exam HENT: Head: Normocephalic and atraumatic. Mouth/Throat: Mouth: Mucous membranes are moist. Cardiovascular: Rate and Rhythm: Regular rhythm. Tachycardia present. Pulmonary: Effort: Pulmonary effort is normal. Comments: Decreased BS at bases Abdominal: Palpations: Abdomen is soft. Musculoskeletal: Comments: Sacral wound with wound VAC, gangrenous toes noted on first 4 toes on left lower extremity Skin: General: Skin is warm and dry. Neurological: Mental Status: He is alert. Psychiatric: Mood and Affect: Mood normal. Medications: Scheduled PRN Scheduled Meds[2] PRN Meds[3] Continuous Continuous Meds[4] Assessment Data: (CAT1) Reviewed 2 notes from [...] Acute, acute on chronic, unstable/uncontrolled chronic problems/diagnoses: Shortness of breath likely due to fluid overload A-fib/flutter Acute CHF ESRD on HD Sacral wound present on admission Subtherapeutic INR Dry gangrene on toes 1-4 left lower extremity Stable chronic problems affecting care, new non-acute diagnoses: Recent Klebsiella pneumonia with lung abscess S/p mechanical valve replacement on Coumadin IgA nephropathy Hypertension History of CAD, CABG History of intracranial hemorrhage Medical History[5] Plan As a result of the above findings & factors, the following mgmt was pursued: - Cardiology consulted, seen the patient, recommendations noted - Nephrology consulted, seen the patient, recommendations noted - Wound care consulted, seen the patient, recommendations noted - Vascular surgery consulted - PT/OT recommends SNF - am labs, replace lytes prn - PT/OT/CM/SW - delirium precautions: increase activity, limit nighttime disturbances, and avoid anticholinergic meds, benzos, etc - DVT prophylaxis: SCDs and encourage ambulation Complexity: Acute illness or injury posing a threat to life or body function (HIGH). Risk: Advance Directive: Full Code Anticipated Discharge - Date -1 to 3 days - Location -TBD - Pending the following -clinical course Total time spent (which include face to face and non face to face encounters) : 41 minutes Extended Emergency Contact Information Primary Emergency Contact: LillianOmar Mobile Relation: Child Secondary Emergency Contact: TarunToma Mobile Relation: Partner Barb Dawkins MD Division of Hospital Medicine Inpatient Medical Services/[facility] [1] Past Medical History: Diagnosis Date Acute renal failure (ARF) ([facility]) 10/19/2019 Anemia 12/30/2021 Calcification of abdominal aorta ([facility]) 10/08/202309/[address] abd Diverticulosis 10/08/2023 ESRD on hemodialysis ([facility]) ([facility]) 10/26/2019 Hemodialysis patient ([facility]) ([facility]) HTN (hypertension) 12/01/2022 Hypertension IgA nephropathy IgA nephropathy determined by biopsy of kidney 10/26/2019 Missed vaccination due to patient refusal 10/08/2023 Has a number of non-scientific based beliefs which interfere with his understanding and acceptance of the medical benefit of vaccination. Nonrheumatic aortic valve stenosis 10/08/2023 Paroxysmal A-fib ([facility]) ([facility]) 08/18/2023 Tobacco abuse 10/08/2023 [2] Lidocaine, 1 patch, Topical, Daily metoprolol tartrate, 25 mg, Oral, q6h pantoprazole, 40 mg, Oral, BID AC sevelamer carbonate, 800 mg, Oral, TID WC sodium zirconium cyclosilicate, 5 g, Oral, Daily warfarin, 2.5 mg, Oral, Once [3] PRN medications: acetaminophen OR acetaminophen, ipratropium-albuterol, melatonin, ondansetron ODT OR ondansetron, polyethylene glycol (PEG) 3350 [4] [5] Past Medical History: Diagnosis Date Acute renal failure (ARF) ([facility]) 10/19/2019 Anemia 12/30/2021 Calcification of abdominal aorta ([facility]) 10/08/202309/[address] abd Diverticulosis 10/08/2023 ESRD on hemodialysis ([facility]) ([facility]) 10/26/2019 Hemodialysis patient ([facility]) ([facility]) HTN (hypertension) 12/01/2022 Hypertension IgA nephropathy IgA nephropathy determined by biopsy of kidney 10/26/2019 Missed vaccination due to patient refusal 10/08/2023 Has a number of non-scientific based beliefs which interfere with his understanding and acceptance of the medical benefit of vaccination. Nonrheumatic aortic valve stenosis 10/08/2023 Paroxysmal A-fib ([facility]) ([facility]) 08/18/2023 Tobacco abuse 10/08/2023 Nephrology Progress Note Following for ESRD Pt seen in room sj Cp SOB NVD + cough Current Inpatient Medications: Reviewed on NOV. Vitals: BP 133/90 (BP Location: Right arm, Patient Position: Sitting) Pulse 112 Temp 36.7 C (98.1 F) (Temporal) Resp 16 Ht 1.778 m (5' 10") Wt 65 kg (143 lb 4.8 oz) SpO2 97% BMI 20.56 kg/m BLOOD PRESSURE RANGE: Systolic (24hrs), Av , Min:121 , Max:153 ; Diastolic (24hrs), Av, Min:64, Max:97 24HR INTAKE/OUTPUT: Intake/Output Summary (Last 24 hours) at 03/15/2025 1011 Last data filed at 03/15/2025 0630 Gross per 24 hour Intake 650 ml Output -- Net 650 ml Physical exam: Constitutional: agitated Cardiovascular: Normal S1, S2 without m/r/g Respiratory: diminished Abdomen: +bs, soft, nt, nd Ext: no lower extremity edema Data: Labs: Recent Labs 03/13/25 0902 03/15/25 0434 WBC 8.0 6.7 HGB 11.8* 8.5* 9.2* HCT 28.4* 30.1* MCV 99.3* 99.7* PLT 392 392 Recent Labs 03/13/25 0945 03/14/25 0507 03/15/25 0434 NA 141 141 139 K 3.5 5.2* 4.5 CL 110* 102 100 CO2 25 28 28 GLUCOSE 71* 99 91 CALCIUM 7.3* 10.1 9.2 MG -- 2.2 2.0 BUN 41* 57* 30* CREATININE 3.32* 4.96* 3.13* Assessment and Plan: 59-year-old male with ESRD on hemodialysis due to IgA nephropathy, presenting with fluid overload, shortness of breath, and atrial flutter. Complex comorbidities include CAD s/p CABG, mechanical valve on warfarin (subtherapeutic INR), prior ICH, anemia, hypoalbuminemia, chronic wounds, and dry gangrene of LLE toes. Plan: Continue TTS HD with aggressive ultrafiltration for volume control. Monitor weights, BP, and fluid balance closely. Nephrology to evaluate dialysis adequacy and adjust dry weight. Monitor electrolytes, BUN/Cr, and albumin. Hold nephrotoxic agents; dose meds renally. Coordinate with cardiology for rate control and anticoagulation in atrial flutter. Vascular surgery and wound care consults for dry gangrene and sacral wound. Thank you for allowing me to care for pt. Feel free to reach out with any questions or concerns Bree Molina APRN [employer]IC OPERATOR [facility] [phone] Pt seen and examined independently by me. I reviewed with FLOWER CHENILLER-PANTS PRESSER the medical history and the findings on physical examination. I discussed the patient s diagnosis and concur with the treatment plan as documented in his note. Please call [phone] or message me through Aud[employer] with any questions or concerns. [facility] Anticoagulation Management Service ([facility]) Inpatient Warfarin Consult HPI: Jun Snyder is a 59 y.o. male admitted on 03/13/2025 for SOB (shortness of breath) [R06.02] Medical History[1] Patient is on warfarin for Heart Valve Replacement and has a goal INR 2.0 - 3.0. Warfarin is currently managed by SNF, will be followed by [facility] after return to home. Pt's home dose of warfarin is 1.5 mg on , , Wed and 1 mg all other days . S/sx of bleeding= none noted Interacting medications= none Labs: Recent Labs 03/13/25 0902 03/15/25 0434 HGB 11.8* 8.5* 9.2* HCT 28.4* 30.1* PLT 392 392 Recent Labs 03/15/25 0434 INR 1.7* Date INR Dose 03/15 1.7 2.5 mg 03/14 --- 1.5mg 03/13 1.7 3mg Assessment/Plan: 1. Subtherapeutic INR yesterday, received boost dose. Will give 2.5mg today--higher than home dose 2. Monitor for s/s of bleeding and drug interactions. Will adjust dose accordingly 3. Will facilitate f/u at [facility] upon discharge Kvng Dugan PharmD 2024 Candidate [facility] is available daily [phone] via Audiotoni[employer] Chat. If no response on Audiotoni[employer] Chat then please page [phone]. [1] Past Medical History: Diagnosis Date Acute renal failure (ARF) ([facility]) 10/19/2019 Anemia 12/30/2021 Calcification of abdominal aorta ([facility]) 10/08/202309/[address] abd Diverticulosis 10/08/2023 ESRD on hemodialysis (CMS/HCC) (HCC) 10/26/2019 Hemodialysis patient ([facility]) ([facility]) HTN (hypertension) 12/01/2022 Hypertension IgA nephropathy IgA nephropathy determined by biopsy of kidney 10/26/2019 Missed vaccination due to patient refusal 10/08/2023 Has a number of non-scientific based beliefs which interfere with his understanding and acceptance of the medical benefit of vaccination. Nonrheumatic aortic valve stenosis 10/08/2023 Paroxysmal A-fib ([facility]) ([facility]) 08/18/2023 Tobacco abuse 10/08/2023 Cosigned by Tiffanie Dial RPh at 03/15/2025 1:17 PM EDT Images from the original note were not included. [facility] Wound VAC Progress Note Jun Snyder AGE: 59 y.o. GENDER: male : 1965 Subjective: HISTORY of PRESENT ILLNESS HPI Jun Snyder is a 59 y.o. male who presents for a wound care follow up and NPWT application/management. HPI: Patient is a 59 y.o. male with past medical history of hypertension, IgA nephropathy, ESRD on HD, CAD, history of CABG, history of intracranial bleed, paroxysmal A-fib aortic stenosis, s/p mechanical valve replacement recent admission here from 02/20-03/05 for hemoptysis due to Klebsiella pneumonia with lung abscess. He went to dialysis today, but was sent to ED due to worsening shortness of breath. Wound Care consulted for wound vac and left toes Patient resting in bed. NPWT intact. No leaks detected. PAST MEDICAL HISTORY Medical History[1] PAST SURGICAL HISTORY Surgical History[2] FAMILY HISTORY Family History[3] SOCIAL HISTORY Social History[4] ALLERGIES Allergies[5] MEDICATIONS Medications Ordered Prior to Encounter[6] REVIEW OF SYSTEMS Pertinent items are noted in HPI. Objective: BP 139/89 (BP Location: Right arm, Patient Position: Lying) Pulse 101 Temp 36.3 C (97.3 F) (Temporal) Resp 16 Ht 5' 10" (1.778 m) Wt 143 lb 4.8 oz (65 kg) SpO2 99% BMI 20.56 kg/m PHYSICAL EXAM General appearance: in no apparent distress, well developed and well nourished, and non-toxic Skin: warm and dry Pulmonary: Normal effort, no respiratory distress, no cyanosis Left toes 1-4: Necrotic tissue. No open wounds. No drainage present. Odor noted. Stable. 03/14/25 Sacrum: NPWT intact. No leaks detected. LABS CBC: Lab Results Component Value Date WBC 6.7 03/15/2025 HGB 9.2 (L) 03/15/2025 HGB 11.8 (L) 03/13/2025 HCT 30.1 (L) 03/15/2025 MCV 99.7 (H) 03/15/2025 PLT 392 03/15/2025 BMP: Lab Results Component Value Date NA 139 03/15/2025 K 4.5 03/15/2025 CL 100 03/15/2025 CO2 28 03/15/2025 BUN 30 (H) 03/15/2025 CREATININE 3.13 (H) 03/15/2025 PT/INR: Lab Results Component Value Date PROTIME 17.9 (H) 03/15/2025 INR 1.7 (H) 03/15/2025 Prealbumin: No results found for: "PREALBUMIN" Albumin:No components found for: LABALBU Sed Rate:No results found for: SEDRATE Micro: No components found for: BC Assessment/Plan: Sacrum: Stage 4 pressure injury - Clean with NS, apply NPWT. Place black foam to wound bed at 125mmHg continuous, change 3 times a week and PRN - Change cannister once a week or when full. - If suction fails: - remove vac dressing - cleanse wound with normal saline - pack wound with saline moistened gauze and change every 12 hours or at discharge. Nursing staff to perform dressing change: Left toes 1-4: Arterial Ulcer (Unknown) - Cleanse with NS, apply Betadine and allow to dry, leave TISHA daily and PRN Nutritional support Wound Care to follow Recommend to follow up at [facility] wound care center after hospital discharge. Any [...] History: Diagnosis Date Acute renal failure (ARF) ([facility]) 10/19/2019 Anemia 12/30/2021 Calcification of abdominal aorta ([facility]) 10/08/202309/[address] abd Diverticulosis 10/08/2023 ESRD on hemodialysis [place] ([facility]) 10/26/2019 Hemodialysis patient ([facility]) ([facility]) HTN (hypertension) 12/01/2022 Hypertension IgA nephropathy IgA nephropathy determined by biopsy of kidney 10/26/2019 Missed vaccination due to patient refusal 10/08/2023 Has a number of non-scientific based beliefs which interfere with his understanding and acceptance of the medical benefit of vaccination. Nonrheumatic aortic valve stenosis 10/08/2023 Paroxysmal A-fib ([facility]) ([facility]) 08/18/2023 Tobacco abuse 10/08/2023 [2] Past Surgical History: Procedure Laterality Date APPENDECTOMY CARDIAC CATHETERIZATION N/A 10/09/2024 Performed by Bob Watson MD at [facility] Cardiac Cath/EP Lab CARDIAC CATHETERIZATION Bilateral 11/01/2024 Performed by Bob Watson MD at [facility] Cardiac Cath/EP Lab CARDIAC CATHETERIZATION N/A 11/01/2024 Performed by Bob Watson MD at [facility] Cardiac Cath/EP Lab COLONOSCOPY N/A 01/24/2025 Performed by Chadd Davis MD at [facility] ENDOSCOPY FISTULAGRAM (HISTORICAL) Left 09/15/2021 LEFT [...] Average packs/day: 1.4 packs/day for 31.3 years (45.2 ttl pk-yrs) Types: Cigarettes Start date: 1993 [...] Prior to Encounter Medication Sig Dispense Refill ipratropium-albuterol (Duo-Neb) 0.5-2.5 mg/3 mL nebulizer solution Take 3 mL by nebulization every 8 hours as needed for shortness of breath. Lidocaine 4 % patch Apply 1 patch topically daily. melatonin 3 MG tablet Take 1 tablet (3 mg) by mouth Nightly as needed for sleep. metoprolol tartrate (Lopressor) 25 MG tablet Take 1 tablet (25 mg) by mouth 2 times daily. 60 tablet 11 pantoprazole (ProtoNix) 40 MG EC tablet Take 1 tablet (40 mg) by mouth 2 times daily (before meals). Do not crush, chew, or split. 60 tablet 11 sevelamer carbonate (Renvela) 800 MG tablet Take 1 tablet (800 mg) by mouth 3 times daily (with meals). Swallow tablet whole; do not crush, break, or chew. 90 tablet 11 sodium zirconium cyclosilicate (Lokelma) 5 g packet Take 5 g by mouth daily. warfarin (Coumadin) 1 MG tablet Take as directed per After Visit Summary. acetaminophen (Tylenol) 325 MG tablet Take 650 mg by mouth every 6 hours as needed for mild pain (1-3), fever or moderate pain (4-6). (Patient not taking: Reported on 03/13/2025) amoxicillin-clavulanate (Augmentin) 500-125 MG tablet Take 1 tablet (500 mg) by mouth daily with supper. Augmentin 500mg q24 (to be taken after HD on HD days) until 03/10/25 (Patient not taking: Reported on 03/13/2025) B complex-vitamin C-folic acid (Nephro-Nato Rx) 1 MG tablet Take 1 tablet by mouth daily. (Patient not taking: Reported on 03/13/2025) bisacodyl (Dulcolax) 10 MG suppository Insert 10 mg into the rectum Daily as needed for constipation. (Patient not taking: Reported on 03/13/2025) bisacodyl (Dulcolax) 5 MG EC tablet Take 5 mg by mouth Daily as needed for constipation. Do not crush, chew, or split. (Patient not taking: Reported on 03/13/2025) magnesium hydroxide (Milk of Magnesia) 800 MG/5ML suspension Take 30 mL by mouth Daily as needed for constipation (if no bm in 3 days). (Patient not taking: Reported on 03/13/2025) naloxone in sodium chloride (PF) injection injection Inject 0.04 mg into the shoulder, thigh, or buttocks as needed for opioid reversal or respiratory depression. QUEtiapine (SEROquel) 25 MG tablet Take 1 tablet (25 mg) by mouth Nightly. (Patient not taking: Reported on 03/13/2025) 30 tablet 0 Cosigned by Ahsan Gill DO at 03/19/2025 4:44 PM EDT Images from the original note were not included. PHYSICAL THERAPY [facility] Initial Evaluation Name/MRN: Jair Snyder ([id number]) Evaluation Date: 03/14/2025 Date of : 1965 Admission Date: 03/13/2025 8:18 AM Age: 59 y.o. Room[facility]Bed: [facility] A Discharge Recommendation: Detention Facility Equipment Needed: No Assessment IMPRESSION: Pt is a 59 y.o. cheryl who presented to the hospital due to shortness of breath due to fluid overload and acute CHF. Pt reports most recently at a SNF for rehab with use of walker or w/c for mobility with SBA-Mod I. Prior to, pt was living in a home with his son and was independent for mobility. Pt presents below baseline requiring Min assist for sit to stand transfers and CGA for ambulation with FWW. Recommend discharge to SNF to improve balance, strength, activity tolerance, and mobility prior to return home. Admitting Diagnosis: shortness of breath Prognosis: good Performance Deficits /Impairments: Decreased Functional Mobility, Decreased Strength, Decreased Safety Awareness, Decreased Endurance, and Decreased Balance Decision Making: Low Complexity Subjective Pt is supine in bed upon arrival and is agreeable to PT evaluation with education and encouragement. Pain: Pt denies any current pain. Past Medical History: Medical History[1] Past Surgical History: Surgical History[2] Admission Diagnosis: Patient Active Problem List Diagnosis Date Noted SOB (shortness of breath) 03/13/2025 Severe malnutrition ([facility]) ([facility]) 02/21/2025 Hemoptysis 02/20/2025 Complication of tracheostomy ([facility]) ([facility]) 01/19/2025 care home (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 01/12/2025 Acute respiratory failure with hypoxia ([facility]) [J96.01] 01/08/2025 Tracheostomy care ([facility]) [Z43.0] 01/08/2025 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[facility]) 01/08/2025 Sacral osteomyelitis ([facility]) ([facility]) 01/03/2025 Pneumonia of both lungs due to methicillin susceptible Staphylococcus aureus (MSSA) ([facility]) 01/01/2025 Leukocytosis 12/30/2024 Decubitus ulcer of sacral region, unstageable ([facility]) 12/30/2024 Peritonitis due to fungus ([facility]) 11/30/2024 History of abdominal surgery 11/30/2024 Leg DVT (deep venous thromboembolism), acute, left ([facility]) 11/30/2024 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, 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 of skin ([facility]) 11/30/2024 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 Pleural effusion 11/28/2024 Gastric ulceration 2024 Atrial flutter, unspecified type ([facility]) 10/03/2024 RSV (acute bronchiolitis due to respiratory syncytial virus) 10/03/2024 Diverticulosis 10/08/2023 Nonrheumatic aortic valve stenosis 10/08/2023 Calcification of abdominal aorta ([facility]) 10/08/2023 Missed vaccination due to patient refusal 10/08/2023 Tobacco abuse 10/08/2023 Alcohol use disorder in remission 10/08/2023 Paroxysmal A-fib ([facility]) ([facility]) 08/18/2023 HTN (hypertension) 12/01/2022 ESRD on hemodialysis ([facility]) ([facility]) 10/26/2019 IgA nephropathy determined by biopsy of kidney 10/26/2019 BRBPR (bright red blood per rectum) 01/19/2025 Aortic stenosis 10/03/2024 Upper GI bleed 10/03/2024 S/P AVR 10/03/2024 Acute hypoxic respiratory failure ([facility]) 10/03/2024 Acute encephalopathy 10/03/2024 Pneumoperitoneum 10/03/2024 Anemia 12/30/2021 Medical Precautions: No active isolations Proper PPE donned/doffed in accordance with facility standards. Fall Risk: Roque Fall Risk Score: 75 (Low Risk) Roque Fall Risk Score: 75 (High Risk) Precautions/Restrictions: Lines/Drains/Airways: wound vac, 4L O2, monitors Family/Caregiver Present: none Overall Cognitive Status: WFL Overall Orientation Status: Oriented to Place, Oriented to Time, and Oriented to Person Vision: Not Assessed Hearing: normal Pt with intermittent mild agitation during session. Pt redirectable. Pt is a questionable historian. Pt with impaired safety awareness. Social/Functional History Pt has been at [facility] for rehab for the past ~1 month. Pt receiving PT/OT services. Using FWW for mobility with SBA-Mod I and w/c for mobility longer distances. Independent with dressing, toileting, and feeding. Assistance required for bathing. Pt denies falls in the past 6 months. Prior to, pt was living in multi level house with his son. 2 steps to enter and full flight of stairs to bedroom/bathroom level. Pt was independent for mobility at that time. Prior Level of Function Prior Level of ADL Function: Required Assist Prior Level of Mobility: Independent; Device: Front wheeled walker Prior Level of Transfers: Independent Objective Lower Extremity Assessment AROM: Impaired: bilateral knee extension lacking grossly 15 degrees Strength: BLE strength 3+/5 Sensation: pt denies numbness/tingling in BUEs and BLEs. Balance: Balance During Session: Posture: fair Sitting - Static: Supervision Sitting - Dynamic: Supervision Standing - Static: Contact Guard Standing - Dynamic: Contact Guard Bed Mobility: Supine to sit: SBA Transfers Sit to stand: Min Assist Stand to sit: Contact Guard Ambulation Ambulation 1 Assistive device(s) used: Front wheeled walker Assist level: Contact Guard Distance (ft): 12ft Quality of gait: decreased saida, partial swing through pattern, increased bilateral knee flexion noted during stance phase Pt declined use of gait belt for mobility. Pt unable to ambulate further on this date due to weakness and impaired activity tolerance. Mild RAMOS noted with mobility. Outcome Measures AM-PAC How much HELP from [...] Raw Score (No Stairs) : 15 [facility] Score: Walked 10 steps or more (i.e. walked to restroom) Plan Pt would benefit from skilled acute PT services to address Strengthening, Gait Training, Balance Training, Functional Mobility Training, and Endurance Training. Frequency: 2x/week for 2 weeks Barriers: Impaired balance, Lower extremity weakness, Decreased endurance, Limited safety awareness, and Impulsivity Safety/Education Safety Safety Devices in place: call light within reach and patient left sitting EOB Restraints: No Education Education Given To: patient Education Provided: PT Role, Gait Training, Plan of Care, and Transfer Training Education Method: Verbal Barriers to Learning: None Education Outcome: Continued Education Needed Goals Patient Stated Goal: to go home Encounter Problems Encounter Problems (Active) Balance Patient will maintain dynamic standing balance for 5 minutes with modified independence in order to demonstrate decreased risk of falling. Start: 03/14/25 Expected End: 03/28/25 Mobility Patient will ambulate 150ft feet with modified independence and rolling walker in order to improve safety and independence with mobility. Start: 03/14/25 Expected End: 03/28/25 Transfers Patient will perform bed mobility with modified independence in order to improve independence and prepare for out of bed mobility. Start: 03/14/25 Expected End: 03/28/25 Patient will complete sit to stand transfer with modified independence to walker in order to improve safety and prepare for out of bed mobility. Start: 03/14/25 Expected End: 03/28/25 Therapy Time Individual Co-Treatment Co-Evaluation Time In 0942 Time Out 1002 Minutes 20 Wilder Francois PT Patient's Physical Therapy Plan of Care supervision is transferred to a [facility] Therapy Services Physical Therapist. Goals and/or treatment plan was established in collaboration with patient/family/other representatives. [1] Past Medical History: Diagnosis Date Acute renal failure (ARF) ([facility]) 10/19/2019 Anemia 12/30/2021 Calcification of abdominal aorta ([facility]) 10/08/202309/[address] abd Diverticulosis 10/08/2023 ESRD on hemodialysis ([facility]) ([facility]) 10/26/2019 [place]od[place] ([facility]) HTN (hypertension) 12/01/2022 Hypertension IgA nephropathy IgA nephropathy determined by biopsy of kidney 10/26/2019 Missed vaccination due to patient refusal 10/08/2023 Has a number of non-scientific based beliefs which interfere with his understanding and acceptance of the medical benefit of vaccination. Nonrheumatic aortic valve stenosis 10/08/2023 Paroxysmal A-fib ([facility]) ([facility]) 08/18/2023 Tobacco abuse 10/08/2023 [2] Past Surgical History: Procedure Laterality Date APPENDECTOMY CARDIAC CATHETERIZATION N/A 10/09/2024 Performed by Bob Watson MD at [facility] Cardiac Cath/EP Lab CARDIAC CATHETERIZATION Bilateral 11/01/2024 Performed by Bob Watson MD at [facility] Cardiac Cath/EP Lab CARDIAC CATHETERIZATION N/A 11/01/2024 Performed by Bob Watson MD at [facility] Cardiac Cath/EP Lab COLONOSCOPY N/A 01/24/2025 Performed by Chadd Davis MD at [facility] ENDOSCOPY FISTULAGRAM (HISTORICAL) Left 09/15/2021 LEFT UPPER ARM HX AV FISTULA CREATION IR EMBOLIZATION 10/14/2024 IR EMBOLIZATION 10/14/2024 [facility] SPECIAL PROCEDURES IR FISTULAGRAM 08/07/2022 IR FISTULAGRAM 08/07/2022 [facility] IR IMAGING TONSILLECTOMY (HISTORICAL) Hospitalist Progress Note Subjective: Admit Date: 03/13/2025 PCP: Leilani Troncoso Room#: [id number] A Chief Complaint Patient presents with Shortness of Breath Pt arrived from shelter via EMS. Pt was starting dialysis and feeling short of breath dialysis was stopped and sent to the hospital to be evaluated. Brief Hospital course: Jun is a 59 y.o. male with past medical history of hypertension, IgA nephropathy, ESRD on HD, CAD, history of CABG, history of intracranial bleed, paroxysmal A-fib aortic stenosis, s/p mechanical valve replacement recent admission here from 02/20-03/05 for hemoptysis due to Klebsiella pneumonia with lung abscess presented to [facility] with worsening shortness of breath. He went to dialysis on 03/13, but was sent to ED due to worsening shortness of breath. Work up in the ED Afebrile, blood pressure 146/94, tachycardic with heart rate ranging from 110s to 120s, was placed on 2 L of oxygen oxygen saturation 98% on 2 L CBC-hemoglobin of 8.5 close to baseline BMP-BUN of 41 creatinine of 3.32, potassium of 3.5 albumin of 1.5 Troponins-elevated at 39 likely due to ESRD EKG-atrial flutter CXR-cardiomegaly with pulmonary venous congestion CT chest revealed congestive heart failure with mild interstitial pulmonary edema, small pleural effusion. No acute lung consolidation. Multifocal areas of irregular pulmonary fibrosis. New ascites, omental edema and nodularity in upper abdomen He was transferred from [facility] to [facility] due to bed availability Nephrology consulted, seen the patient, appreciated Cardiology consulted, seen the patient, appreciated Wound care consulted, seen the patient, appreciated PT recommends SNF Interval History: 03/14/2025-No overnight issues. Patient is seen and examined He is resting in his bed, appears to be not in acute distress, reports no new acute complaints Labs reviewed ESRD picture, BNP more than 30,000, TSH 6.88, added free T4 Case and plan discussed with patient and bedside nurse. All questions answered. Past Medical History: Medical History[1] Adult diet Regular; Low Sodium (2 gm) 24HR INTAKE/OUTPUT: Intake/Output Summary (Last 24 hours) at 03/14/2025 0843 Last data filed at 03/13/2025 2204 Gross per 24 hour Intake 0 ml Output 1 ml Net -1 ml LABS: CBC: Recent Labs 03/13/25 0902 WBC 8.0 RBC 2.86* HGB 11.8* 8.5* HCT 28.4* MCV 99.3* RDW 21.2* PLT 392 BMP: Recent Labs 03/13/25 0945 03/14/25 0507 NA 141 141 K 3.5 5.2* CL 110* 102 CO2 25 28 BUN 41* 57* CREATININE 3.32* 4.96* GLUCOSE 71* 99 CALCIUM 7.3* 10.1 ANIONGAP 6 11 LIVER PROFILE: Recent Labs 03/13/25 0945 AST 37* ALT 7 BILITOT 0.5 ALKPHOS 122 PROT 5.5* PT/INR: Recent Labs 03/13/25 0902 PROTIME 17.7* INR 1.7* CARDIAC ENZYMES: No results for input(s): "TROPONINI" in the last 72 hours. Procalcitonin: No results found for: "PROCAL" COVID-19 PCR: No results for input(s): "COVID19" in the last 72 hours. Objective: Vitals: BP (!) 147/102 (BP Location: Right arm, Patient Position: Lying) Pulse (!) 122 Temp 36.3 C (97.4 F) (Temporal) Resp 16 Ht 5' 10" (1.778 m) Wt 147 lb 3.2 oz (66.8 kg) SpO2 100% BMI 21.12 kg/m Pulse Ox: SpO2 Av.5 % Min: 95 % Max: 100 % Supplemental O2: O2 Flow Rate (L/min): 4 L/min Physical Exam HENT: Head: Normocephalic and atraumatic. Mouth/Throat: Mouth: Mucous membranes are moist. Cardiovascular: Rate and Rhythm: Regular rhythm. Tachycardia present. Pulmonary: Effort: Pulmonary effort is normal. Comments: Decreased BS at bases Abdominal: Palpations: Abdomen is soft. Musculoskeletal: Comments: Sacral wound with wound VAC, gangrenous toes noted on first 4 toes on left lower extremity Skin: General: Skin is warm and dry. Neurological: Mental Status: He is alert. Psychiatric: Mood and Affect: Mood normal. Medications: Scheduled PRN Scheduled Meds[2] PRN Meds[3] Continuous Continuous Meds[4] Assessment Data: (CAT1) Reviewed 3 or more [...] Acute, acute on chronic, unstable/uncontrolled chronic problems/diagnoses: Shortness of breath likely due to fluid overload A-fib/flutter Acute CHF ESRD on HD Sacral wound present on admission Subtherapeutic INR Dry gangrene on toes 1-4 left lower extremity Stable chronic problems affecting care, new non-acute diagnoses: Recent Klebsiella pneumonia with lung abscess S/p mechanical valve replacement on Coumadin IgA nephropathy Hypertension History of CAD, CABG History of intracranial hemorrhage Medical History[5] Plan As a result of the above findings & factors, the following mgmt was pursued: - Cardiology consulted - Nephrology consulted - Wound care consulted - Vascular surgery consulted - PT/OT - am labs, replace lytes prn - PT/OT/CM/SW - delirium precautions: increase activity, limit nighttime disturbances, and avoid anticholinergic meds, benzos, etc - DVT prophylaxis: SCDs and encourage ambulation Complexity: Acute illness or injury posing a threat to life or body function (HIGH). Risk: Advance Directive: Full Code Anticipated Discharge - Date -1 to 3 days - Location -TBD - Pending the following -clinical course Total time spent (which include face to face and non face to face encounters) : 51 minutes Extended Emergency Contact Information Primary Emergency Contact: Omar Snyder Mobile Relation: Child Secondary Emergency Contact: Toma Mcneil Mobile Relation: Partner Barb Dawkins MD Division of Hospital Medicine Inpatient Medical Services/[facility] [1] Past Medical History: Diagnosis Date Acute renal failure (ARF) ([facility]) 10/19/2019 Anemia 12/30/2021 Calcification of abdominal aorta ([facility]) 10/08/202309/[address] abd Diverticulosis 10/08/2023 ESRD on hemodialysis ([facility]) ([facility]) 10/26/2019 Hemodialysis patient ([facility] ([facility]) HTN (hypertension) 12/01/2022 Hypertension IgA nephropathy IgA nephropathy determined by biopsy of kidney 10/26/2019 Missed vaccination due to patient refusal 10/08/2023 Has a number of non-scientific based beliefs which interfere with his understanding and acceptance of the medical benefit of vaccination. Nonrheumatic aortic valve stenosis 10/08/2023 Paroxysmal A-fib ([facility]) ([facility]) 08/18/2023 Tobacco abuse 10/08/2023 [2] Lidocaine, 1 patch, Topical, Daily metoprolol tartrate, 25 mg, Oral, BID pantoprazole, 40 mg, Oral, BID AC sevelamer carbonate, 800 mg, Oral, TID WC sodium zirconium cyclosilicate, 5 g, Oral, Daily [3] PRN medications: acetaminophen OR acetaminophen, ipratropium-albuterol, melatonin, ondansetron ODT OR ondansetron, polyethylene glycol (PEG) 3350 [4] [5] Past Medical History: Diagnosis Date Acute renal failure (ARF) ([facility]) 10/19/2019 Anemia 12/30/2021 Calcification of abdominal aorta ([facility]) 10/08/202309/[address] abd Diverticulosis 10/08/2023 ESRD on hemodialysis ([facility]) ([facility]) 10/26/2019 Hemodialysis patient ([facility]) ([facility]) HTN (hypertension) 12/01/2022 Hypertension IgA nephropathy IgA nephropathy determined by biopsy of kidney 10/26/2019 Missed vaccination due to patient refusal 10/08/2023 Has a number of non-scientific based beliefs which interfere with his understanding and acceptance of the medical benefit of vaccination. Nonrheumatic aortic valve stenosis 10/08/2023 Paroxysmal A-fib ([facility]) ([facility]) 08/18/2023 Tobacco abuse 10/08/2023 [facility] ([facility]) Inpatient Warfarin Consult HPI: Jun Snyder is a 59 y.o. male admitted on 03/13/2025 for SOB (shortness of breath) [R06.02] Medical History[1] Patient is on warfarin for Heart Valve Replacement and has a goal INR 2.0 - 3.0. Warfarin is currently managed by SNF, will be followed by [facility] after return to home. Pt's home dose of warfarin is 1.5 mg on , , Wed and 1 mg all other days . S/sx of bleeding= none noted Interacting medications= none Labs: Recent Labs 03/13/25 09 HGB 11.8* 8.5* HCT 28.4* PLT 392 Recent Labs 03/13/25 0902 INR 1.7* Date INR Dose 03/14 --- 1.5mg 03/13 1.7 3mg Assessment/Plan: 1. Subtherapeutic INR yesterday, received boost dose. Will give 1.5mg today--higher end of home dose 2. Monitor for s/s of bleeding and drug interactions. Will adjust dose accordingly 3. Will facilitate f/u at [facility] upon discharge Tiffanie Dial [facility], PharmD [facility] is available daily [phone] via [employer]. If no response on [employer] then please page [phone]. [1] Past Medical History: Diagnosis Date Acute renal failure (ARF) ([facility]) 10/19/2019 Anemia 12/30/2021 Calcification of abdominal aorta ([facility]) 10/08/202309/[address] abd Diverticulosis 10/08/2023 ESRD on hemodialysis ([facility] ([facility]) 10/26/2019 Hemodialysis patient ([facility]) ([facility]) HTN (hypertension) 12/01/2022 Hypertension IgA nephropathy IgA nephropathy determined by biopsy of kidney 10/26/2019 Missed vaccination due to patient refusal 10/08/2023 Has a number of non-scientific based beliefs which interfere with his understanding and acceptance of the medical benefit of vaccination. Nonrheumatic aortic valve stenosis 10/08/2023 Paroxysmal A-fib ([facility]) ([facility]) 08/18/2023 Tobacco abuse 10/08/2023 documented in this encounter [facility] 03-21-2025 Note Formatting of this n ote might be different from the original. Care Management Progress Note Short Medical why still here: Heparin gtt stopped today. . INR 2.9 today. Getting Coumadin. Refusing to work with therapy. They would like to skill him if able. Planned Discharge Disposition: Halfway/Residential Care Barriers/Today we still Wait: Administering IV medications, Test results (comment) Length of Stay (Days): 8 GMLOS: 3.9 [facility] 03-21-2025 Note Formatting of this n ote might be different from the original. Care Management Progress Note Short Medical why still here: Heparin gtt stopped today. . INR 2.9 today. Getting Coumadin. Refusing to work with therapy. They would like to skill him if able. Planned Discharge Disposition: Halfway/Residential Care Barriers/Today we still Wait: Administering IV medications, Test results (comment) Length of Stay (Days): 8 GMLOS: 3.9 [facility] 03-21-2025 Plan of care note Problem: Knowledge Deficit Goal: Patient/family/caregiver demonstrates understanding of disease process, treatment plan, medications, and discharge instructions Outcome: Progressing Problem: Potential for Compromised Skin Integrity Goal: Skin Integrity is Maintained or Improved Outcome: Progressing Goal: Nutritional status is improving Outcome: Progressing Problem: Urinary Incontinence Goal: Perineal skin integrity is maintained or improved Outcome: Progressing Problem: Problem Interventions Goal: Assess Nutritional Intake Outcome: Progressing Problem: Pain - Adult Goal: Verbalizes/displays adequate comfort level or baseline comfort level Outcome: Progressing Problem: Safety - Adult Goal: Free from fall injury Outcome: Progressing Problem: Discharge Planning Goal: Discharge to home or other facility with appropriate resources Outcome: Progressing Problem: Chronic Conditions and Co-morbidities Goal: Patient's chronic conditions and co-morbidity symptoms are monitored and maintained or improved Outcome: Progressing [facility] 03-20-2025 Nurse Note Patient Name: Jun Snyder Patient : 1965 Acct: [id number] Date of Admission: 03/13/2025 Room[facility]Bed: [facility] A Code Status: Full Code Allergies: Allergies[1] Diagnosis: Problem List[2] Treatment: Hemodilaysis 2:1 Priority: Routine Location: Acute Room Diabetic: No NPO: No Isolation Precautions: Dialysis Consent for Treatment Verified: Yes Blood Consent Verified: Not Applicable ICEBOAT: Identify, Consent, Equipment, HepB Status, Orders Complete, Access Verified, Timeliness (o2 aqnd suction functional @ bedside) Second Clinician Verifying: Hector Pinto RN Time out performed prior to access at 1210. Report Received from Primary RN at 0915. Primary RN (First Initial, Last Name, Title): Alex Dobbins RN Incapacitated Nurse Education Completed: marcelino HBsAg ONLY: Date Drawn: February 24, 2025 [...] whom: na Date of Last Dressing Change: johnnie [email or web address]?: na Red Alcohol Caps in place?: na Gauze Dressing?: na Non-Dialysis Use?: No Comment: Flows: Good If access problem, who was notified: Pre and Post-Assessment Patient Vitals for the past 8 hrs: Level of Consciousness Heart Rhythm O2 Device Bilateral Breath Sounds Skin Color Skin Condition/Temp Abdomen Inspection Bowel Sounds (All Quadrants) 03/20/25 0805 -- -- -- Clear;Diminished Ecchymosis;Red -- Soft;Nondistended Active 03/20/25 1206 Alert (0) Regular None (Room air) Clear;Diminished -- Warm;Dry Soft;Nondistended Active 03/20/25 1516 Alert (0) Regular -- -- -- -- -- -- Labs Lab Results Component Value Date/Time WBC 8.1 03/20/2025 0548 HGB 9.2 (L) 03/20/2025 0548 HGB 11.8 (L) 03/13/2025 0902 HCT 30.3 (L) 03/20/2025 0548 PLT 308 03/20/2025 0548 NA 136 03/20/2025 0548 K 5.3 (H) 03/20/2025 0548 CL 102 03/20/2025 0548 CO2 24 03/20/2025 0548 BUN 32 (H) 03/20/2025 0548 CREATININE 4.28 (H) 03/20/2025 0548 CREATININE 9.99 (H) 10/27/2019 0545 CALCIUM 9.1 03/20/2025 0548 PHOS 2.6 02/23/2025 0032 IV Drips and Rate/Dose Continuous Meds[3] Safety - Before each treatment: Dialysis Machine No.: [id number] RO Machine Number: [id number] Dialyzer Lot No.: [id number] Tubing Lot Number: [id number] All Connections Secure: Yes Venous Parameters Set: Yes Arterial Parameters Set: Yes NS Bag: Yes Saline Line Double Clamped: Yes Dialyzer: Nipro Prime Volume (mL): 200 mL RO Machine Number: [id number] RO Machine Log Sheet Completed: Yes Machine Alarm Self Test: Completed, Passed (03/20/25 1145) Air Foam Detector: Tested, Proper Function, pH Reading Extracorporeal Circuit Tested for Integrity: Yes Machine Conductivity: 13.8 Manual Conductivity: 13.8 Manual Ph: 7 Bleach Test (Neg): Yes Bath Temperature: 36 C (96.8 F) Conductivity Meter Serial #: [id number] Machine Functioning Alarm Free? Yes Dialysis Bath: K+ (Potassium): 2 Ca+ (Calcium): 2.5 Na+ (Sodium): 135 HCO3 (Bicarb): 35 Chlorine Testing - Before each treatment and every 4 hours: Time On: 1216 Time Off: 1516 Treatment Goal: 2L Weight Height: 177.8 cm (5' 10") (03/14/25 1617) Weight: 69.8 kg (153 lb 12.8 oz) (03/20/25 042) BMI (Calculated): 22.07 (03/20/25421) 1st check: less than 0.1 ppm at: 1145 2nd check: less than 0.1 ppm at: 1445 3rd check: Not Applicable (if greater than 0.1 ppm, then check every 30 minutes from secondary) Access Flows and Pressures Patient Vitals for the past 8 hrs: Blood Flow Rate (mL/min) Ultrafiltration Rate (ml/hr) Arterial Pressure (mmHg) Venous Pressure (mmHg) TMP DFR Access Visible Intra-Hemodialysis Comments 03/20/25 1206 -- -- -- -- -- -- Yes pt aware of call light within reach and educated on use of call light 03/20/25 1216 200 mL/min 830 ml/hr -20 mmHg 70 mmHg 50 600 Yes tx iniated lines secured pt stable 03/20/25 1217 400 mL/min 830 ml/hr -40 mmHg 110 mmHg 60 600 Yes bfr increased 03/20/25 1232 400 mL/min 830 ml/hr -70 mmHg 150 mmHg 80 600 Yes Pt alert resting. Rmvd 213. Lines secure,. Call light in reach. 03/20/25 1245 400 mL/min 830 ml/hr -70 mmHg 190 mmHg 80 600 Yes pt resting, eyes closed. uf removed is 400 03/20/25 1300 400 mL/min 830 ml/hr -80 mmHg 190 mmHg 80 600 Yes pt stable resting lines secured call light in reach 603 uf removed 03/20/25 1316 400 mL/min 830 ml/hr -80 mmHg 180 mmHg 80 600 Yes Pt sleeping stable. Rmvd 807. 03/20/25 1330 400 mL/min 830 ml/hr -90 mmHg 180 mmHg 80 600 Yes Pt sleeping, stable rmvd 997. Lines secure. call light in reach. Uf on. 03/20/25 1345 400 mL/min 830 ml/hr -90 mmHg 180 mmHg 80 600 Yes Pt sleeping. Rmvd 1194. No changes. stable. 03/20/25 1400 400 mL/min 830 ml/hr -90 mmHg 180 mmHg 80 600 Yes Pt sleeping rmvd 1408. No changes. 03/20/25 1415 4010 mL/min 830 ml/hr -90 mmHg 180 mmHg 80 600 Yes Pt stable sleeping. Rmvd 1703. 03/20/25 1430 400 mL/min 830 ml/hr -90 mmHg 170 mmHg 80 600 Yes Pt sleeping rmvd 1826. 03/20/25 1439 -- -- -- -- -- -- Yes bicarb/acid jugs changed 13.7/6.8 03/20/25 1445 400 mL/min 830 ml/hr -90 mmHg 1701 mmHg 80 600 Yes pt stable 2013 uf removed 03/20/25 1500 400 mL/min 830 ml/hr -90 mmHg 170 mmHg 80 600 Yes pt stable 2258 uf removed 03/20/25 1516 -- -- -- -- -- -- Yes tx complete pt stable 2500 uf removed Vital Signs Patient Vitals for the past 24 hrs: BP Temp Temp src Pulse Resp SpO2 Weight 03/20/25 1523 143/78 -- -- 76 -- -- -- 03/20/25 1516 147/82 36.8 C (98.3 F) -- 76 16 100 % -- 03/20/25 1500 151/85 -- -- 77 -- -- -- 03/20/25 1445 142/81 -- -- 76 -- -- -- 03/20/25 1430 143/79 -- -- 75 -- -- -- 03/20/25 1415 146/81 -- -- 78 -- -- -- 03/20/25 1400 146/79 -- -- 78 -- -- -- 03/20/25 1345 158/85 -- -- 77 -- -- -- 03/20/25 1330 142/79 -- -- 78 -- -- -- 03/20/25 1316 140/77 -- -- 78 -- -- -- 03/20/25 1300 141/80 -- -- 76 -- -- -- 03/20/25 1245 145/84 -- -- 76 -- -- -- 03/20/25 1232 154/85 -- -- 76 -- -- -- 03/20/25 1217 139/75 -- -- 75 -- -- -- 03/20/25 1216 144/78 -- -- 77 -- -- -- 03/20/25 1206 153/87 36.9 C (98.5 F) -- 75 18 100 % -- 03/20/25 0807 130/84 36.4 C (97.6 F) Temporal 77 18 99 % -- 03/20/25 0422 -- -- -- -- -- -- 69.8 kg (153 lb 12.8 oz) 03/20/25 0419 141/75 36.7 C (98 F) Temporal 80 14 100 % -- 03/20/25 0137 125/78 36.6 C (97.9 F) Temporal 76 14 99 % -- Post-Dialysis Arterial Catheter Locking Solution: Not Applicable Venous Catheter Locking Solution: Not Applicable Post-Treatment Procedures: Blood returned, Access bleeding time < 10 minutes Machine Disinfection Process: Exterior Machine Disinfection Rinseback Volume (mL): 300 mL Total Liters Processed (L/min): 68.5 L/min Dialyzer Clearance: Lightly streaked Hemodialysis Intake (ml): 500 ml Hemodialysis Output (ml): 2500 ml NET Removed (ml): 2000 ml Tolerated Treatment: Good Patient Response to Treatment: stable Physician Notified: No Patient Disposition: Return to room Charge: $ IP Hemodialysis Charge: Hemodialysis Provider Notification Provider Notification Reason for Communication: Other (Comment) (to inform patient arrival from [place] [facility] room and need for orders) Provider Name: dr sanon Provider Role: Attending physician Method of Communication: Secure chat Response: At bedside Provider Role: Attending physician Method of Communication: Secure chat Response: At bedside Handoff complete and report given to Primary RN at 1530. Primary RN (First Initial, Last Name, Title): Alex Dobbins RN Education Person Educated: Patient Knowledge Base: [...] Leukocytosis Decubitus ulcer of sacral region, unstageable ([facility]) Pneumonia of both lungs due to methicillin susceptible Staphylococcus aureus (MSSA) (HCC) Sacral osteomyelitis (CMS/HCC) (HCC) Acute respiratory failure with hypoxia ([facility]) [J96.01] Tracheostomy care ([facility]) [Z43.0] 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[facility]) care home (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 Complication of tracheostomy (CMS/HCC) ([facility]) BRBPR (bright red blood per rectum) Hemoptysis SOB (shortness of breath) Moderate malnutrition (CMS/HCC) ([facility]) [3] heparin, 5-30 Units/kg/hr, Last Rate: 20 Units/kg/hr (03/20/25 1328) [facility] 03-20-2025 Note Formatting of this n ote might be different from the original. Care Management Progress Note Short Medical why still here: Heparin gtt bridging to Coumadin. INR 1.9 today Planned Discharge Disposition: Halfway/Residential Care Barriers/Today we still Wait: Clinical stability Length of Stay (Days): 7 GMLOS: 3.9 [facility] 03-20-2025 Note Formatting of this n ote might be different from the original. Care Management Progress Note Short Medical why still here: Heparin gtt bridging to Coumadin. INR 1.9 today Planned Discharge Disposition: Halfway/Residential Care Barriers/Today we still Wait: Clinical stability Length of Stay (Days): 7 GMLOS: 3.9 [facility] 03-20-2025 Plan of care note Problem: Knowledge Deficit Goal: Patient/family/caregiver demonstrates understanding of disease process, treatment plan, medications, and discharge instructions Outcome: Progressing Problem: Potential for Compromised Skin Integrity Goal: Skin Integrity is Maintained or Improved Outcome: Progressing Goal: Nutritional status is improving Outcome: Progressing Problem: Urinary Incontinence Goal: Perineal skin integrity is maintained or improved Outcome: Progressing Problem: Problem Interventions Goal: Assess Nutritional Intake Outcome: Progressing Problem: Pain - Adult Goal: Verbalizes/displays adequate comfort level or baseline comfort level Outcome: Progressing Problem: Safety - Adult Goal: Free from fall injury Outcome: Progressing Problem: Discharge Planning Goal: Discharge to home or other facility with appropriate resources Outcome: Progressing Problem: Chronic Conditions and Co-morbidities Goal: Patient's chronic conditions and co-morbidity symptoms are monitored and maintained or improved Outcome: Progressing [facility] 03-19-2025 Note Formatting of this n ote might be different from the original. Care Management Progress Note Continues on a Heparin gtt. Trying to bridge to Coumadin. INR 1.6 today. When stable plan is to return to [facility].. . Length of Stay (Days): 6 GMLOS: 3.9 [facility] 03-19-2025 Note Formatting of this n ote might be different from the original. Care Management Progress Note Continues on a Heparin gtt. Trying to bridge to Coumadin. INR 1.6 today. When stable plan is to return to [facility] [place].. . Length of Stay (Days): 6 GMLOS: 3.9 T [facility] 03-19-2025 Plan of care note Problem: Knowledge Deficit Goal: Patient/family/caregiver demonstrates understanding of disease process, treatment plan, medications, and discharge instructions Outcome: Progressing Problem: Potential for Compromised Skin Integrity Goal: Skin Integrity is Maintained or Improved Outcome: Progressing Goal: Nutritional status is improving Outcome: Progressing Problem: Urinary Incontinence Goal: Perineal skin integrity is maintained or improved Outcome: Progressing Problem: Problem Interventions Goal: Assess Nutritional Intake Outcome: Progressing Problem: Pain - Adult Goal: Verbalizes/displays adequate comfort level or baseline comfort level Outcome: Progressing Problem: Safety - Adult Goal: Free from fall injury Outcome: Progressing Problem: Discharge Planning Goal: Discharge to home or other facility with appropriate resources Outcome: Progressing Problem: Chronic Conditions and Co-morbidities Goal: Patient's chronic conditions and co-morbidity symptoms are monitored and maintained or improved Outcome: Progressing [facility] 03-19-2025 Plan of care note Problem: Knowledge Deficit Goal: Patient/family/caregiver demonstrates understanding of disease process, treatment plan, medications, and discharge instructions Outcome: Progressing Problem: Potential for Compromised Skin Integrity Goal: Skin Integrity is Maintained or Improved Outcome: Progressing Goal: Nutritional status is improving Outcome: Progressing Problem: Urinary Incontinence Goal: Perineal skin integrity is maintained or improved Outcome: Progressing Problem: Problem Interventions Goal: Assess Nutritional Intake Outcome: Progressing Problem: Pain - Adult Goal: Verbalizes/displays adequate comfort level or baseline comfort level Outcome: Progressing Problem: Safety - Adult Goal: Free from fall injury Outcome: Progressing Problem: Discharge Planning Goal: Discharge to home or other facility with appropriate resources Outcome: Progressing Problem: Chronic Conditions and Co-morbidities Goal: Patient's chronic conditions and co-morbidity symptoms are monitored and maintained or improved Outcome: Progressing T [facility] 03-19-2025 Nurse Note Wound vac suction failing-pt requesting wound vac removed for now. Black foam dressing removed and wound packed with saline-soaked gauze covered with DSD [facility] 03-19-2025 Nurse Note Pt adamantly refusing telemetry at this time, ripped off monitor and threw to the floor [facility] 03-18-2025 Note Problem: Pain - Adul t Goal: Verbalizes/displays adequate comfort level or baseline comfort level Outcome: Progressing Problem: Safety - Adult Goal: Free from fall injury Outcome: Progressing [facility] 03-18-2025 Plan of care note Problem: Pain - Adult Goal: Verbalizes/displays adequate comfort level or baseline comfort level Outcome: Progressing Problem: Safety - Adult Goal: Free from fall injury Outcome: Progressing [facility] 03-17-2025 Plan of care note Problem: Knowledge Deficit Goal: Patient/family/caregiver demonstrates understanding of disease process, treatment plan, medications, and discharge instructions Outcome: Progressing Problem: Potential for Compromised Skin Integrity Goal: Skin Integrity is Maintained or Improved Outcome: Progressing Goal: Nutritional status is improving Outcome: Progressing Problem: Urinary Incontinence Goal: Perineal skin integrity is maintained or improved Outcome: Progressing Problem: Problem Interventions Goal: Assess Nutritional Intake Outcome: Progressing Problem: Pain - Adult Goal: Verbalizes/displays adequate comfort level or baseline comfort level Outcome: Progressing Problem: Safety - Adult Goal: Free from fall injury Outcome: Progressing Problem: Discharge Planning Goal: Discharge to home or other facility with appropriate resources Outcome: Progressing Problem: Chronic Conditions and Co-morbidities Goal: Patient's chronic conditions and co-morbidity symptoms are monitored and maintained or improved Outcome: Progressing [facility] 03-17-2025 Note Problem: Pain - Adul t Goal: Verbalizes/displays adequate comfort level or baseline comfort level Outcome: Progressing Problem: Safety - Adult Goal: Free from fall injury Outcome: Progressing [facility] 03-17-2025 Plan of care note Problem: Pain - Adult Goal: Verbalizes/displays adequate comfort level or baseline comfort level Outcome: Progressing Problem: Safety - Adult Goal: Free from fall injury Outcome: Progressing [facility] 03-17-2025 Nurse Note Patient Name: Jun Snyder Patient : 1965 Acct: [id number] Date of Admission: 03/13/2025 Room/Bed: [facility] A Code Status: Full Code Allergies: Allergies[1] Diagnosis: Problem List[2] Treatment: Hemodilaysis 2:1 Priority: Routine Location: Acute Room Diabetic: No NPO: Yes Isolation Precautions: Dialysis Consent for Treatment Verified: Yes Blood Consent Verified: Not Applicable ICEBOAT: Identify, Consent, Equipment, HepB Status, Orders Complete, Access Verified, Timeliness (o2 and suction functional @ bedside) Second Clinician Verifying: Hector Hutchison RN Time out performed prior to access at 0836. Report Received from Primary RN at 0719. Primary RN (First Initial, Last Name, Title): Malick Henry Incapacitated Nurse Education Completed: ws HBsAg ONLY: Date Drawn: February 24, 2025 Results: Negative HBsAb: Date Drawn: February 24, 2025 Results: Susceptible <10 Order Dialyzer: Nipro Na+ Modeling: Not Applicable Dialysate Temperature (C): 36 Blood Flow Rate (BFR): 450 Dialysate Flow Rate (DFR): 600 Access to [...] whom: na Date of Last Dressing Change: johnnie [email or web address]?: na Red Alcohol Caps in place?: na Gauze Dressing?: na Non-Dialysis Use?: No Comment: Flows: Good If access problem, who was notified: Pre and Post-Assessment Patient Vitals for the past 8 hrs: Level of Consciousness Heart Rhythm O2 Device Bilateral Breath Sounds Skin Color Skin Condition/Temp Abdomen Inspection Bowel Sounds (All Quadrants) 03/17/25 0800 -- -- -- Diminished Ecchymosis Dry;Warm Rounded -- 03/17/25 0830 Alert (0) Regular None (Room air) Clear;Diminished -- Warm;Dry Rounded Active 03/17/25 1141 Alert (0) Regular -- -- -- -- -- -- Labs Lab Results Component Value Date/Time WBC 6.7 03/17/2025 0047 HGB 10.0 (L) 03/17/2025 0047 HGB 11.8 (L) 03/13/2025 0902 HCT 33.8 (L) 03/17/2025 0047 PLT 407 03/17/2025 0047 NA 141 03/17/2025 0047 K 3.9 03/17/2025 0047 CL 104 03/17/2025 0047 CO2 25 03/17/2025 0047 BUN 22 03/17/2025 0047 CREATININE 3.25 (H) 03/17/2025 0047 CREATININE 9.99 (H) 10/27/2019 0545 CALCIUM 9.6 03/17/2025 0047 PHOS 2.6 02/23/2025 0032 IV Drips and Rate/Dose Continuous Meds[3] Safety - Before each treatment: Dialysis Machine No.: [id number] RO Machine Number: [id number] Dialyzer Lot No.: [id number] Tubing Lot Number: [id number] All Connections Secure: Yes Venous Parameters Set: Yes Arterial Parameters Set: Yes NS Bag: Yes Saline Line Double Clamped: Yes Dialyzer: Nipro Prime Volume (mL): 200 mL RO Machine Number: [id number] RO Machine Log Sheet Completed: Yes Machine Alarm Self Test: Completed, Passed (03/17/25 0803) Air Foam Detector: Tested, Proper Function, pH Reading Extracorporeal Circuit Tested for Integrity: Yes Machine Conductivity: 13.6 Manual Conductivity: 13.6 Manual Ph: 7 Bleach Test (Neg): Yes Bath Temperature: 36 C (96.8 F) Conductivity Meter Serial #: [id number] Machine Functioning Alarm Free? Yes Dialysis Bath: K+ (Potassium): 2 Ca+ (Calcium): 2.5 Na+ (Sodium): 135 HCO3 (Bicarb): 35 Chlorine Testing - Before each treatment and every 4 hours: Time On: 840 Time Off: 114 Treatment Goal: 2L Weight Height: 177.8 cm (5' 10") (03/14/25 1617) Weight: 64.4 kg (142 lb) (03/17/25536) BMI (Calculated): 20.37 (03/17/25536) 1st check: less than 0.1 ppm at: 0545 2nd check: less than 0.1 ppm at: 0845 3rd check: Not Applicable (if greater than 0.1 ppm, then check every 30 minutes from secondary) Access Flows and Pressures Patient Vitals for the past 8 hrs: Blood Flow Rate (mL/min) Ultrafiltration Rate (ml/hr) Arterial Pressure (mmHg) Venous Pressure (mmHg) TMP DFR Access Visible Intra-Hemodialysis Comments 03/17/2530 -- -- -- -- -- -- Yes pt aware of call light within reach and educated onuse of call light 03/17/25 0841 200 mL/min 830 ml/hr -20 mmHg 90 mmHg 70 600 Yes tx iniated lines secured pt stable 03/17/25 0843 450 mL/min 830 ml/hr -70 mmHg 160 mmHg 100 600 Yes bfr increased 03/17/25 0904 450 mL/min 830 ml/hr -130 mmHg 220 mmHg 100 600 Yes Pt stable resting. Rmvd 305. 03/17/25 0915 450 mL/min 830 ml/hr -140 mmHg 250 mmHg 100 600 Yes Pt stable resting. Rmvd 492. Watching tv. 03/17/25 0930 450 mL/min 830 ml/hr -140 mmHg 250 mmHg 90 600 Yes Pt stable rmvd 738. Sleeping. 03/17/25 0947 450 mL/min 830 ml/hr -150 mmHg 240 mmHg 100 600 Yes Pt stable rmvd 883. Pt on his phone. 03/17/25 1000 450 mL/min 830 ml/hr -160 mmHg 200 mmHg 100 600 Yes Pt sleeping. Lines secure. rmvd 1068. Stable. 03/17/25 1015 450 mL/min 830 ml/hr -140 mmHg 250 mmHg 100 600 Yes pt stable 1301 uf removed 03/17/25 1030 450 mL/min 840 ml/hr -150 mmHg 240 mmHg 100 600 Yes Pt stable rmvd 1495. sleeping. 03/17/25 1045 450 mL/min 840 ml/hr -150 mmHg 250 mmHg 100 600 Yes Pt stable rmvd 1782. Pt on his phone. 03/17/25 1100 450 mL/min 840 ml/hr -150 mmHg 250 mmHg 100 600 Yes Pt alert on phone. Lines secure. Rmvd 1939. 03/17/25 1115 450 mL/min 840 ml/hr -150 mmHg 250 mmHg 70 600 Yes Pt alert stable rmvd 2101. 03/17/25 1130 450 mL/min 840 ml/hr -160 mmHg 270 mmHg 100 600 Yes Pt alert on his phone. Rmvd 2328. 03/17/25 1141 -- -- -- -- -- -- Yes tx complete pt stable 2500 uf removed Vital Signs Patient Vitals for the past 24 hrs: BP Temp Temp src Pulse Resp SpO2 Weight 03/17/25 1227 130/81 (!) 22.5 C (72.5 F) Temporal 81 16 95 % -- 03/17/25 1200 120/77 -- -- 83 -- -- -- 03/17/25 1141 135/78 37.2 C (98.9 F) -- 81 16 100 % -- 03/17/25 1130 147/78 -- -- 80 -- -- -- 03/17/25 1115 119/87 -- -- 82 -- -- -- 03/17/25 1100 141/79 -- -- 83 -- -- -- 03/17/25 1045 151/83 -- -- 83 -- -- -- 03/17/25 1030 149/77 -- -- 82 -- -- -- 03/17/25 1015 145/78 -- -- 82 -- -- -- 03/17/25 1000 147/80 -- -- 79 -- -- -- 03/17/25 0947 138/86 -- -- 81 -- -- -- 03/17/25 0930 159/89 -- -- 81 -- -- -- 03/17/25 0915 132/90 -- -- 80 -- -- -- 03/17/25 0904 117/75 -- -- 79 -- -- -- 03/17/25 0843 131/78 -- -- 76 -- -- -- 03/17/25 0841 134/79 -- -- 77 -- -- -- 03/17/25 0830 143/89 37.3 C (99.2 F) -- 77 16 100 % -- 03/17/25 0739 135/83 36.1 C (97 F) Temporal 75 16 100 % -- 03/17/25 0537 -- -- -- -- -- -- 64.4 kg (142 lb) 03/17/25 0502 130/76 36.6 C (97.8 F) Temporal 77 18 100 % -- 03/16/25 1953 (!) 129/45 36.9 C (98.5 F) Temporal 78 18 100 % -- 03/16/25 1522 148/86 36.4 C (97.6 F) Temporal 85 18 100 % -- Post-Dialysis Arterial Catheter Locking Solution: Not Applicable Venous Catheter Locking Solution: Not Applicable Post-Treatment Procedures: Blood returned, Access bleeding time < 10 minutes Machine Disinfection Process: Exterior Machine Disinfection Rinseback Volume (mL): 300 mL Total Liters Processed (L/min): 75.6 L/min Dialyzer Clearance: Lightly streaked Hemodialysis Intake (ml): 500 ml Hemodialysis Output (ml): 2500 ml NET Removed (ml): 2000 ml Tolerated Treatment: Good Patient Response to Treatment: stable Physician Notified: No Patient Disposition: Return to room Charge: $ IP Hemodialysis Charge: Hemodialysis Provider Notification Provider Notification Reason for Communication: Other (Comment) (to inform patient arrival from [place] [facility] and need for orders) Provider Name: dr sanon Provider Role: Attending physician Method of Communication: Secure chat Response: At bedside Provider Role: Attending physician Method of Communication: Secure chat Response: At bedside Handoff complete and report given to Primary RN at 1200. Primary RN (First Initial, Last Name, Title): Malick Henry RN Education Person Educated: Patient Knowledge Base: Minimal Barriers to Learning?: None Preferred method of Learning: Oral Topic(s): call light, Access Care, Signs and Symptoms of Infection, and Fluid Management Teaching Tools: Demonstration Response to Education: Verbalized Understanding [1] Allergies Allergen Reactions Lisinopril Swelling and Angioedema [2] Patient Active Problem List Diagnosis Anemia Paroxysmal A-fib ([facility]/HCC) (HCC) HTN (hypertension) ESRD on hemodialysis ([facility]) ([facility]) IgA nephropathy determined by biopsy of kidney Diverticulosis Nonrheumatic aortic valve stenosis Calcification of abdominal aorta ([facility]) Missed vaccination due to patient refusal Tobacco abuse Alcohol use disorder in remission Atrial flutter, unspecified type (HCC) RSV (acute bronchiolitis due to respiratory syncytial virus) Aortic stenosis Upper GI bleed S/P AVR Acute hypoxic respiratory failure ([facility]) Acute encephalopathy Pneumoperitoneum Gastric ulceration Severe malnutrition (CMS/HCC) ([facility]) Pleural effusion Peritonitis due to fungus (HCC) History of abdominal surgery Leg DVT (deep venous thromboembolism), acute, left (HCC) 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, 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) Tracheostomy dependence ([facility]) Leukocytosis Decubitus ulcer of sacral region, unstageable ([facility]) Pneumonia of both lungs due to methicillin susceptible Staphylococcus aureus (MSSA) ([facility]) Sacral osteomyelitis ([facility]/HCC) ([facility]) Acute respiratory failure with hypoxia ([facility]) [J96.01] Tracheostomy care ([facility]) [Z43.0] 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[facility]) care home (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 Complication of tracheostomy ([facility]/HCC) ([facility]) BRBPR (bright red blood per rectum) Hemoptysis SOB (shortness of breath) Moderate malnutrition ([facility]/HCC) ([facility]) [3] heparin, 5-30 Units/kg/hr [facility] 03-16-2025 Plan of care note Problem: Knowledge Deficit Goal: Patient/family/caregiver demonstrates understanding of disease process, treatment plan, medications, and discharge instructions Outcome: Progressing Problem: Potential for Compromised Skin Integrity Goal: Nutritional status is improving Outcome: Progressing T [facility] 03-16-2025 Plan of care note Problem: Knowledge Deficit Goal: Patient/family/caregiver demonstrates understanding of disease process, treatment plan, medications, and discharge instructions Outcome: Progressing Problem: Potential for Compromised Skin Integrity Goal: Skin Integrity is Maintained or Improved Outcome: Progressing Goal: Nutritional status is improving Outcome: Progressing Problem: Urinary Incontinence Goal: Perineal skin integrity is maintained or improved Outcome: Progressing Problem: Problem Interventions Goal: Assess Nutritional Intake Outcome: Progressing T [facility] 03-16-2025 Note Formatting of this n ote might be different from the original. Care Management Progress Note Going to dialysis today. Refusing surgery for gangrenous toes. Anticipate discharge back to ECF soon. . Length of Stay (Days): 3 GMLOS: 3.9 [facility] 03-16-2025 Note Formatting of this n ote might be different from the original. Care Management Progress Note Going to dialysis today. Refusing surgery for gangrenous toes. Anticipate discharge back to ECF soon. . Length of Stay (Days): 3 GMLOS: 3.9 [facility] 03-16-2025 Note Care Management Prog ress Note Going to dialysis today. Refusing surgery for gangrenous toes. Anticipate discharge back to ECF soon. . Length of Stay (Days): 3 GMLOS: 3.9 [facility] 03-15-2025 Note Formatting of this n ote might be different from the original. ELIA reviewed chart. Copy of DPOA found in electronic chart naming Omar connell as agent. Care Management Return to Hospital Readmission questionnaire- N/A- pt form ECF. [facility] 03-15-2025 Note Formatting of this n ote might be different from the original. ELIA reviewed chart. Copy of DPOA found in electronic chart naming Omar connell as agent. Care Management Return to Hospital Readmission questionnaire- N/A- pt form ECF. [facility] 03-15-2025 Note ELIA reviewed chart. Copy of DPOA found in electronic chart naming Omar connell as agent. Care Management Return to Hospital Readmission questionnaire- N/A- pt form ECF. [facility] 03-15-2025 Consult note Associated Order (s): Inpatient consult to Vascular Surgery--[facility]; Gangrenous toes noted on first 4 toes on left lower extremity, please evaluate Images from the original note were not included. Inpatient consult to Vascular Surgery--[facility]; Gangrenous toes noted on first 4 toes on left lower extremity, please evaluate Consult performed by: Earlene Royal MD Consult ordered by: Barb Dawkins MD Vascular Surgery Consultation Note Reason for Consult: gangrenous toes left foot History of Present Illness: Jair Snyder is a 59 y.o. male with PMHx significant for IgA nephropathy, hypertension, ESRD on HD, paroxysmal A-fib, CABG, intracranial bleed, aortic stenosis, and PSHx of aortic valve replacement 10/12/[address] Montemayor, left upper arm aVF, multiple cardiac catheterizations, appendectomy, (additional history below) who was admitted to internal medicine for SOB. Vascular surgery was consulted for the evaluation and management of gangrenous left toes. After patient underwent TAVR, patient went into cardiac arrest, required a prolonged hospitalization. Ultimately had to undergo tracheostomy/PEG tube placement. Patient also developed an upper GI bleed in September of this year and underwent IR embolization of GDA. Patient had IVC filter placed on 11/03/2024 secondary to bilateral DVTs. Patient is reportedly on Coumadin secondary to aortic valve replacement. Patient reports that he has had the wound since approximately October, has had minimal improvement. Reports he does not have any pain with walking. Previously reported a burning sensation/numbness; however, has resolved now. Reports he does have pain when the toes are touched. Denies any additional vascular surgery with the exception of above. Pertinent social history: 31.3-year pack history of tobacco use. Denies drug/alcohol use.. Patient examined in dialysis, resting in bed, no acute distress, 4 L nasal cannula satting 99%, afebrile, hemodynamic stable. WBC 6.7, hemoglobin 9.2, platelets 392, creatinine 3.13. IMPRESSION: Jair Snyder is a 59 y.o. male with a significant past medical history of IgA nephropathy, ESRD, status post TAVR with subsequent cardiac arrest, admitted to internal medicine for shortness of breath. Vascular surgery consulted for evaluation of gangrenous left toes with 1 through 4. RECOMMENDATIONS: No acute vascular surgical intervention indicated this time Extensive discussion with patient regarding possible need for amputation (TMA), patient states he does not want any kind of surgery at this time. Patient understands that this may lead to infection, sepsis, ultimately , patient continues to decline any possible surgical intervention. PVRs reviewed Recommend wound care to left lower extremities All other medical care per primary team Vascular surgery will signoff at this time. Thank you for this consult. We appreciate the opportunity to care for this patient. Please reach out with questions or concerns. Case discussed with Dr. Leone Medical History[1] Surgical History[2] Current Medications: Continuous Meds[3] PRN Meds[4] Scheduled Meds[5] Allergies: Lisinopril Social History Socioeconomic History Marital status: Spouse name: Not on file Number of children: Not on file Years of education: Not on file Highest education level: Not on file Occupational History Not on file Tobacco Use Smoking status: Every Day Current packs/day: 1.00 Average packs/day: 1.4 packs/day for 31.3 years (45.2 ttl pk-yrs) Types: Cigarettes Start date: 1993 [...] Patient declined Food Insecurity: No Food Insecurity (03/13/2025) Hunger Vital Sign Worried About Running Out of Food in the Last Year: Never true Ran Out of Food in the Last Year: Never true Transportation Needs: No Transportation Needs (03/13/2025) PRAPARE - Transportation Lack of Transportation (Medical): No Lack of Transportation (Non-Medical): No Physical Activity: Inactive (02/21/2025) Exercise Vital Sign Days of Exercise per Week: 0 days Minutes of Exercise per Session: 0 min Stress: Stress Concern Present (02/21/2025) [employer] - Occupational Stress Questionnaire Feeling of Stress : To some extent Social Connections: Unknown (02/21/2025) Social Connection and Isolation Panel [NHANES] Frequency of Communication with Friends and Family: More than three times a week Frequency of Social Gatherings with Friends and Family: Patient declined Attends Rastafari Services: Patient declined Active Member of Clubs or Organizations: Patient declined Attends Club or Organization Meetings: Patient declined Marital Status: Patient declined Intimate Partner Violence: Not At Risk (03/13/2025) Humiliation, Afraid, Rape, and Kick questionnaire Fear of Current or Ex-Partner: No Emotionally Abused: No Physically Abused: No Sexually Abused: No Housing Stability: Low Risk (03/13/2025) Housing Stability Vital Sign Unable to Pay for Housing in the Last Year: No Number of Times Moved in the Last Year: 0 Homeless in the Last Year: No Family History[6] REVIEW OF SYSTEMS: The chart was reviewed. Review of Systems Constitutional: Negative for appetite change, chills and fever. HENT: Negative for nosebleeds and postnasal drip. Eyes: Negative for pain and itching. Respiratory: Positive for cough and shortness of breath. Negative for apnea. Cardiovascular: Negative for chest pain and palpitations. Gastrointestinal: Negative for abdominal distention, abdominal pain, nausea and vomiting. Genitourinary: Negative for difficulty urinating and dysuria. Musculoskeletal: Positive for arthralgias. Skin: Positive for color change and wound. Negative for rash. Neurological: Negative for seizures and numbness. All other systems reviewed and are negative. LABS: Lab Results Component Value Date CREATININE 3.13 (H) 03/15/2025 Lab Results Component Value Date WBC 6.7 03/15/2025 HGB 9.2 (L) 03/15/2025 HCT 30.1 (L) 03/15/2025 MCV 99.7 (H) 03/15/2025 PLT 392 03/15/2025 Lab Results Component Value Date INR 1.7 (H) 03/15/2025 INR 1.7 (H) 03/13/2025 INR 1.8 (H) 03/05/2025 PROTIME 17.9 (H) 03/15/2025 PROTIME 17.7 (H) 03/13/2025 PROTIME 18.6 (H) 03/05/2025 PHYSICAL EXAM: Vitals: 03/15/25 1430 BP: 136/83 Pulse: 93 Resp: Temp: SpO2: Vascular Physical Exam Vitals and nursing note reviewed. Constitutional: General: He is awake. He is not in acute distress. Interventions: Nasal cannula in place. HENT: Head: Normocephalic and atraumatic. Right Ear: External ear normal. Left Ear: External ear normal. Nose: Nose normal. No rhinorrhea. Mouth/Throat: Mouth: Mucous membranes are moist. Eyes: General: Vision grossly intact. Right eye: No discharge. Left eye: No discharge. Conjunctiva/sclera: Conjunctivae normal. Cardiovascular: Rate and Rhythm: Normal rate. Pulses: Carotid pulses are 2+ on the right side and 2+ on the left side. Radial pulses are 2+ on the right side and 2+ on the left side. Femoral pulses are 2+ on the right side and 2+ on the left side. Dorsalis pedis pulses are 2+ on the right side and 2+ on the left side. Posterior tibial pulses are 2+ on the right side and 2+ on the left side. Pulmonary: Effort: Pulmonary effort is normal. No respiratory distress. Breath sounds: No wheezing. Abdominal: Palpations: Abdomen is soft. Musculoskeletal: Left foot: Decreased range of motion. Feet: Comments: Dry gangrene left foot digits 1 through 4, minimal motor of toes; however, able to bend at the ankle. Sensation intact at digits 1 and 5 Skin: General: Skin is warm. Capillary Refill: Capillary refill takes less than 2 seconds. Findings: Wound present. Neurological: General: No focal deficit present. Mental Status: He is alert and oriented to person, place, and time. Mental status is at baseline. Psychiatric: Mood and Affect: Mood normal. Behavior: Behavior normal. Arteriovenous access: Left arteriovenous access is present. Left Access: Surgical AVF location(s): upper arm. Media Information LABS: Lab Results Component Value Date WBC 6.7 03/15/2025 HGB 9.2 (L) 03/15/2025 HCT 30.1 (L) 03/15/2025 PLT 392 03/15/2025 PROTIME 17.9 (H) 03/15/2025 INR 1.7 (H) 03/15/2025 K 4.5 03/15/2025 BUN 30 (H) 03/15/2025 CREATININE 3.13 (H) 03/15/2025 VASCULAR TESTING: PVR 03/15/2025 Right side findings: Resting KIM is non-compressible. Left side findings: Resting KIM is non-compressible. Reason for TBI exam: distal wound/ulcer and digit symptoms. Bilateral ABIs may be overestimated due to medial calcinosis based on arterial waveforms. Right side findings: Non-compressible resting KIM. Left side findings: Non-compressible resting KIM. Right PVR waveforms: Normal - lower thigh, calf, ankle, metatarsal region, 1st digit, 2nd digit, 3rd digit, 4th digit and 5th digit. Left PVR waveforms: Normal - lower thigh, calf, ankle, metatarsal region and 5th digit. Media Information Earlene Royal M.D. Department of Surgery General Surgery Resident Pager: [phone] PAGING / Epic Secure Chat: From 6a-6p (- weekends): Epic Secure Chat (FIRST) or Pager above (EMERGENT/Second) From 6p-6a (-s): Find resident physician under [facility] Surgery - General - Surgical ICU Patients: Select 'ACH GEN SURG Night Float ICU RES' or "Page x1794" - Surgical Floor Patients: Select 'ACH GEN SURG Night Float Floor RES' or "Page x1799" Disclaimers: INFORMED CONSENT: The nature and purpose of the proposed treatment and/or procedure have been discussed. The risks and benefits of the proposed treatment or procedures have been reviewed. Alternatives have been reviewed in addition to the risks and benefits of not receiving treatments or undergoing procedures. Pursuant to this discussion, the patient agrees to undergo the proposed treatment or procedure. Captured images seen in this note are not a substitute for a comprehensive interpretation of the entire data set as reflected by the interpreting physician with regard to radiology, echocardiography, and other diagnostic images. This note may have been dictated using Scoopshot Practice Edition and/or [employer] Voice Recognition Feature. The document was proofread; however, unrecognized voice recognition ski binding fitter and repairer errors may be present. [1] Past Medical History: Diagnosis Date Acute renal failure (ARF) ([facility]) 10/19/2019 Anemia 12/30/2021 Calcification of abdominal aorta ([facility]) 10/08/202309/[address] abd Diverticulosis 10/08/2023 ESRD on hemodialysis ([facility]) ([facility]) 10/26/2019 [place] ([facility]) HTN (hypertension) 12/01/2022 Hypertension IgA nephropathy IgA nephropathy determined by biopsy of kidney 10/26/2019 Missed vaccination due to patient refusal 10/08/2023 Has a number of non-scientific based beliefs which interfere with his understanding and acceptance of the medical benefit of vaccination. Nonrheumatic aortic valve stenosis 10/08/2023 Paroxysmal A-fib ([facility]) ([facility]) 08/18/2023 Tobacco abuse 10/08/2023 [2] Past Surgical History: Procedure Laterality Date APPENDECTOMY CARDIAC CATHETERIZATION N/A 10/09/2024 Performed by Bob Watson MD at [facility] Cardiac Cath/EP Lab CARDIAC CATHETERIZATION Bilateral 11/01/2024 Performed by Bob Watson MD at [facility] Cardiac Cath/EP Lab CARDIAC CATHETERIZATION N/A 11/01/2024 Performed by Bob Watson MD at [facility] Cardiac Cath/EP Lab COLONOSCOPY N/A 01/24/2025 Performed by Chadd Davis MD at [facility] ENDOSCOPY FISTULAGRAM (HISTORICAL) Left 09/15/2021 LEFT UPPER ARM HX AV FISTULA CREATION IR EMBOLIZATION 10/14/2024 IR EMBOLIZATION 10/14/2024 [facility] SPECIAL PROCEDURES IR FISTULAGRAM 08/07/2022 IR FISTULAGRAM 08/07/2022 [facility] IR IMAGING TONSILLECTOMY (HISTORICAL) [3] [4] PRN medications: acetaminophen OR acetaminophen, ipratropium-albuterol, melatonin, ondansetron ODT OR ondansetron, polyethylene glycol (PEG) 3350 [5] Lidocaine, 1 patch, Topical, Daily metoprolol tartrate, 25 mg, Oral, q6h pantoprazole, 40 mg, Oral, BID AC sevelamer carbonate, 800 mg, Oral, TID WC sodium zirconium cyclosilicate, 5 g, Oral, Daily warfarin, 2.5 mg, Oral, Once [6] Family History Problem Relation Name Age of Onset No Known Problems Mother No Known Problems Father Cosigned by Matthias Leone MD at 03/16/2025 8:19 AM EDT Associated attestation - Matthias Leone MD - 03/16/2025 8:19 AM EDT I have evaluated the patient and agree with the resident assessment and plan except for additional comments made in this note. Patient with dry gangrene of several toes of the left foot. PVRs show adequate blood flow to foot based on waveforms. He would likely need a left TMA to achieve wound healing. The patient states he is not interested in any surgery at this time. No further vascular work up needed. I would recommend consult/follow up with Ortho for amputation planning if and when patient is willing. [employer] Work Phone: 03-15-2025 Consult note Associated Order (s): Inpatient consult to Vascular Surgery--[facility]; Gangrenous toes noted on first 4 toes on left lower extremity, please evaluate Images from the original note were not included. Inpatient consult to Vascular Surgery--[facility]; Gangrenous toes noted on first 4 toes on left lower extremity, please evaluate Consult performed by: Earlene Royal MD Consult ordered by: Barb Dawkins MD Vascular Surgery Consultation Note Reason for Consult: gangrenous toes left foot History of Present Illness: Jair Snyder is a 59 y.o. male with PMHx significant for IgA nephropathy, hypertension, ESRD on HD, paroxysmal A-fib, CABG, intracranial bleed, aortic stenosis, and PSHx of aortic valve replacement 10/12/[address] Montemayor, left upper arm aVF, multiple cardiac catheterizations, appendectomy, (additional history below) who was admitted to internal medicine for SOB. Vascular surgery was consulted for the evaluation and management of gangrenous left toes. After patient underwent TAVR, patient went into cardiac arrest, required a prolonged hospitalization. Ultimately had to undergo tracheostomy/PEG tube placement. Patient also developed an upper GI bleed in September of this year and underwent IR embolization of GDA. Patient had IVC filter placed on 11/03/2024 secondary to bilateral DVTs. Patient is reportedly on Coumadin secondary to aortic valve replacement. Patient reports that he has had the wound since approximately October, has had minimal improvement. Reports he does not have any pain with walking. Previously reported a burning sensation/numbness; however, has resolved now. Reports he does have pain when the toes are touched. Denies any additional vascular surgery with the exception of above. Pertinent social history: 31.3-year pack history of tobacco use. Denies drug/alcohol use.. Patient examined in dialysis, resting in bed, no acute distress, 4 L nasal cannula satting 99%, afebrile, hemodynamic stable. WBC 6.7, hemoglobin 9.2, platelets 392, creatinine 3.13. IMPRESSION: Jair Snyder is a 59 y.o. male with a significant past medical history of IgA nephropathy, ESRD, status post TAVR with subsequent cardiac arrest, admitted to internal medicine for shortness of breath. Vascular surgery consulted for evaluation of gangrenous left toes with 1 through 4. RECOMMENDATIONS: No acute vascular surgical intervention indicated this time Extensive discussion with patient regarding possible need for amputation (TMA), patient states he does not want any kind of surgery at this time. Patient understands that this may lead to infection, sepsis, ultimately , patient continues to decline any possible surgical intervention. PVRs reviewed Recommend wound care to left lower extremities All other medical care per primary team Vascular surgery will signoff at this time. Thank you for this consult. We appreciate the opportunity to care for this patient. Please reach out with questions or concerns. Case discussed with Dr. Leone Medical History[1] Surgical History[2] Current Medications: Continuous Meds[3] PRN Meds[4] Scheduled Meds[5] Allergies: Lisinopril Social History Socioeconomic History Marital status: Spouse name: Not on file Number of children: Not on file Years of education: Not on file Highest education level: Not on file Occupational History Not on file Tobacco Use Smoking status: Every Day Current packs/day: 1.00 Average packs/day: 1.4 packs/day for 31.3 years (45.2 ttl pk-yrs) Types: Cigarettes Start date: 1993 [...] Patient declined Food Insecurity: No Food Insecurity (03/13/2025) Hunger Vital Sign Worried About Running Out of Food in the Last Year: Never true Ran Out of Food in the Last Year: Never true Transportation Needs: No Transportation Needs (03/13/2025) PRAPARE - Transportation Lack of Transportation (Medical): No Lack of Transportation (Non-Medical): No Physical Activity: Inactive (02/21/2025) Exercise Vital Sign Days of Exercise per Week: 0 days Minutes of Exercise per Session: 0 min Stress: Stress Concern Present (02/21/2025) [employer] - Occupational Stress Questionnaire Feeling of Stress : To some extent Social Connections: Unknown (02/21/2025) Social Connection and Isolation Panel [NHANES] Frequency of Communication with Friends and Family: More than three times a week Frequency of Social Gatherings with Friends and Family: Patient declined Attends Rastafari Services: Patient declined Active Member of Clubs or Organizations: Patient declined Attends Club or Organization Meetings: Patient declined Marital Status: Patient declined Intimate Partner Violence: Not At Risk (03/13/2025) Humiliation, Afraid, Rape, and Kick questionnaire Fear of Current or Ex-Partner: No Emotionally Abused: No Physically Abused: No Sexually Abused: No Housing Stability: Low Risk (03/13/2025) Housing Stability Vital Sign Unable to Pay for Housing in the Last Year: No Number of Times Moved in the Last Year: 0 Homeless in the Last Year: No Family History[6] REVIEW OF SYSTEMS: The chart was reviewed. Review of Systems Constitutional: Negative for appetite change, chills and fever. HENT: Negative for nosebleeds and postnasal drip. Eyes: Negative for pain and itching. Respiratory: Positive for cough and shortness of breath. Negative for apnea. Cardiovascular: Negative for chest pain and palpitations. Gastrointestinal: Negative for abdominal distention, abdominal pain, nausea and vomiting. Genitourinary: Negative for difficulty urinating and dysuria. Musculoskeletal: Positive for arthralgias. Skin: Positive for color change and wound. Negative for rash. Neurological: Negative for seizures and numbness. All other systems reviewed and are negative. LABS: Lab Results Component Value Date CREATININE 3.13 (H) 03/15/2025 Lab Results Component Value Date WBC 6.7 03/15/2025 HGB 9.2 (L) 03/15/2025 HCT 30.1 (L) 03/15/2025 MCV 99.7 (H) 03/15/2025 PLT 392 03/15/2025 Lab Results Component Value Date INR 1.7 (H) 03/15/2025 INR 1.7 (H) 03/13/2025 INR 1.8 (H) 03/05/2025 PROTIME 17.9 (H) 03/15/2025 PROTIME 17.7 (H) 03/13/2025 PROTIME 18.6 (H) 03/05/2025 PHYSICAL EXAM: Vitals: 03/15/25 1430 BP: 136/83 Pulse: 93 Resp: Temp: SpO2: Vascular Physical Exam Vitals and nursing note reviewed. Constitutional: General: He is awake. He is not in acute distress. Interventions: Nasal cannula in place. HENT: Head: Normocephalic and atraumatic. Right Ear: External ear normal. Left Ear: External ear normal. Nose: Nose normal. No rhinorrhea. Mouth/Throat: Mouth: Mucous membranes are moist. Eyes: General: Vision grossly intact. Right eye: No discharge. Left eye: No discharge. Conjunctiva/sclera: Conjunctivae normal. Cardiovascular: Rate and Rhythm: Normal rate. Pulses: Carotid pulses are 2+ on the right side and 2+ on the left side. Radial pulses are 2+ on the right side and 2+ on the left side. Femoral pulses are 2+ on the right side and 2+ on the left side. Dorsalis pedis pulses are 2+ on the right side and 2+ on the left side. Posterior tibial pulses are 2+ on the right side and 2+ on the left side. Pulmonary: Effort: Pulmonary effort is normal. No respiratory distress. Breath sounds: No wheezing. Abdominal: Palpations: Abdomen is soft. Musculoskeletal: Left foot: Decreased range of motion. Feet: Comments: Dry gangrene left foot digits 1 through 4, minimal motor of toes; however, able to bend at the ankle. Sensation intact at digits 1 and 5 Skin: General: Skin is warm. Capillary Refill: Capillary refill takes less than 2 seconds. Findings: Wound present. Neurological: General: No focal deficit present. Mental Status: He is alert and oriented to person, place, and time. Mental status is at baseline. Psychiatric: Mood and Affect: Mood normal. Behavior: Behavior normal. Arteriovenous access: Left arteriovenous access is present. Left Access: Surgical AVF location(s): upper arm. Media Information LABS: Lab Results Component Value Date WBC 6.7 03/15/2025 HGB 9.2 (L) 03/15/2025 HCT 30.1 (L) 03/15/2025 PLT 392 03/15/2025 PROTIME 17.9 (H) 03/15/2025 INR 1.7 (H) 03/15/2025 K 4.5 03/15/2025 BUN 30 (H) 03/15/2025 CREATININE 3.13 (H) 03/15/2025 VASCULAR TESTING: PVR 03/15/2025 Right side findings: Resting KIM is non-compressible. Left side findings: Resting KIM is non-compressible. Reason for TBI exam: distal wound/ulcer and digit symptoms. Bilateral ABIs may be overestimated due to medial calcinosis based on arterial waveforms. Right side findings: Non-compressible resting KIM. Left side findings: Non-compressible resting KIM. Right PVR waveforms: Normal - lower thigh, calf, ankle, metatarsal region, 1st digit, 2nd digit, 3rd digit, 4th digit and 5th digit. Left PVR waveforms: Normal - lower thigh, calf, ankle, metatarsal region and 5th digit. Media Information Earlene Royal M.D. Department of Surgery General Surgery Resident Pager: [phone] PAGING / Aud[employer] Secure Chat: From 6a-6p (- weekends): [employer] Secure Chat (FIRST) or Pager above (EMERGENT/Second) From 6p-6a (-s): Find resident physician under [facility] Surgery - General - Surgical ICU Patients: Select 'ACH GEN SURG Night Float ICU RES' or "Page x1794" - Surgical Floor Patients: Select 'ACH GEN SURG Night Float Floor RES' or "Page x1799" Disclaimers: INFORMED CONSENT: The nature and purpose of the proposed treatment and/or procedure have been discussed. The risks and benefits of the proposed treatment or procedures have been reviewed. Alternatives have been reviewed in addition to the risks and benefits of not receiving treatments or undergoing procedures. Pursuant to this discussion, the patient agrees to undergo the proposed treatment or procedure. Captured images seen in this note are not a substitute for a comprehensive interpretation of the entire data set as reflected by the interpreting physician with regard to radiology, echocardiography, and other diagnostic images. This note may have been dictated using Scoopshot Practice Edition and/or [employer] Voice Recognition Feature. The document was proofread; however, unrecognized voice recognition ski binding fitter and repairer errors may be present. [1] Past Medical History: Diagnosis Date Acute renal failure (ARF) ([facility]) 10/19/2019 Anemia 12/30/2021 Calcification of abdominal aorta ([facility]) 10/08/202309/[address] abd Diverticulosis 10/08/2023 ESRD [place] hemodialysis [place] ([facility]) 10/26/2019 Hemodialysis patient ([facility] ([facility]) HTN (hypertension) 12/01/2022 Hypertension IgA nephropathy IgA nephropathy determined by biopsy of kidney 10/26/2019 Missed vaccination due to patient refusal 10/08/2023 Has a number of non-scientific based beliefs which interfere with his understanding and acceptance of the medical benefit of vaccination. Nonrheumatic aortic valve stenosis 10/08/2023 Paroxysmal A-fib ([facility]) ([facility]) 08/18/2023 Tobacco abuse 10/08/2023 [2] Past Surgical History: Procedure Laterality Date APPENDECTOMY CARDIAC CATHETERIZATION N/A 10/09/2024 Performed by Bob Watson MD at [facility] Cardiac Cath/EP Lab CARDIAC CATHETERIZATION Bilateral 11/01/2024 Performed by Bob Watson MD at [facility] Cardiac Cath/EP Lab CARDIAC CATHETERIZATION N/A 11/01/2024 Performed by Bob aWtson MD at [facility] Cardiac Cath/EP Lab COLONOSCOPY N/A 01/24/2025 Performed by Chadd Davis MD at [facility] ENDOSCOPY FISTULAGRAM (HISTORICAL) Left 09/15/2021 LEFT UPPER ARM HX AV FISTULA CREATION IR EMBOLIZATION 10/14/2024 IR EMBOLIZATION 10/14/2024 [facility] SPECIAL PROCEDURES IR FISTULAGRAM 08/07/2022 IR FISTULAGRAM 08/07/2022 [facility] IR IMAGING TONSILLECTOMY (HISTORICAL) [3] [4] PRN medications: acetaminophen OR acetaminophen, ipratropium-albuterol, melatonin, ondansetron ODT OR ondansetron, polyethylene glycol (PEG) 3350 [5] Lidocaine, 1 patch, Topical, Daily metoprolol tartrate, 25 mg, Oral, q6h pantoprazole, 40 mg, Oral, BID AC sevelamer carbonate, 800 mg, Oral, TID WC sodium zirconium cyclosilicate, 5 g, Oral, Daily warfarin, 2.5 mg, Oral, Once [6] Family History Problem Relation Name Age of Onset No Known Problems Mother No Known Problems Father Cosigned by Matthias Leone MD at 03/16/2025 8:19 AM EDT Associated attestation - Matthias Leone MD - 03/16/2025 8:19 AM EDT I have evaluated the patient and agree with the resident assessment and plan except for additional comments made in this note. Patient with dry gangrene of several toes of the left foot. PVRs show adequate blood flow to foot based on waveforms. He would likely need a left TMA to achieve wound healing. The patient states he is not interested in any surgery at this time. No further vascular work up needed. I would recommend consult/follow up with Ortho for amputation planning if and when patient is willing. Associated Order(s): IP CONSULT TO DIETITIAN See dietitian morales dated 03/14/25. Pt tolerating diet well, was started on ensure plus HP BID during admission. Will continue to monitor labs, meds, po intakes and/or enteral nutrition tolerance, skin integrity, wt trends, and overall nutrition status - RD to follow weekly Yasemin Ceron MS, RD, LD Clinical Dietitian Contact: or Audiotoniq Chat (dial [phone] from hospital phone) Associated Order(s): IP CONSULT TO DIETITIAN Nutrition Assessment Type and Reason for Visit: Initial, Consult, Patient Education, Positive Nutrition Screen, Wound (HF edu, MST 2, ESRD on HD) Nutrition Recommendations/Plan: Pt meets ASPEN/AND criteria for malnutrition as indicated below Continue Adult diet Regular; Low Sodium (2 gm) Supplement(s): Added Chocolate Ensure Plus HP BID with meals (provides 350 kcals, 20 grams protein, 8 oz per serving) per MNT protocol Will continue to monitor labs, meds, po intakes and/or enteral nutrition tolerance, skin integrity, wt trends, and overall nutrition status - RD to follow weekly Malnutrition Assessment: Malnutrition Status: Moderate malnutrition Context: Acute Illness Findings of the 6 clinical characteristics of malnutrition: Energy Intake: Mild decrease in energy intake (Comment) (Dysgeusia (improved, nearly resolved per pt)) Weight Loss: Unable to assess (has had positive wt gain since January 2025, however he admitted w/ volume overload (met sev mal chronic at this time, s/p PEG -> has had PEG recently removed)) Body Fat Loss: Moderate body fat loss (moderate to severe) Buccal region, Fat Overlying Ribs, Triceps, Orbital Muscle Mass Loss: Moderate muscle mass loss (moderate to severe) Temples (temporalis), Clavicles (pectoralis & deltoids), Thigh (quadraceps), Calf (gastrocnemius) Fluid Accumulation: Mild Ascites (CT chest: mild interstitial pulmonary edema, small pleural effusions, new ascites and omental edema in upper abdomen.) Supervisor [employer] Strength: Not Performed Chief Complaint Patient presents with Shortness of Breath Pt arrived from shelter via EMS. Pt was starting dialysis and feeling short of breath dialysis was stopped and sent to the hospital to be evaluated. Past Medical and Surgical History: Medical History[1] Surgical History[2] Nutrition Assessment: LOS# 2. +Nutrition screen (MST 2, wound), ESRD on HD (TTS schedule), RD c/s for HF diet education. 59M w/ ESRD on HD d/t IgA nephropathy who p/w fluid overload, SOB, and atrial flutter. Complex comorbidities include CAD s/p CABG, mechanical valve on warfarin (subtherapeutic INR), prior ICH, anemia, hypoalbuminemia, chronic wounds, and dry gangrene of LLE toes. S/p HD w/ aggressive UF for volume control, jaquan well (-1L net removed). Nephro to cont to eval HD adequacy and adjust EDW. Of note, recently had PEG tube removed 02/23/25. Tolerating diet. Wound vac to sacral stage IV PI. Gangrenous toes on first 4 toes on LLE. Hard chart indicates the pt was ordered a K+ controlled diet w/ regular textures and thin liquids. He was also ordered an 8oz juice ONS and 30 ml SF pro-stat BID. Pt is seen at bedside this afternoon. He is frail appearing w/ noticeable fat/muscle losses observed, especially in comparison w/ EPIC photo. BLE w/ more severe appearing wasting. He states his appetite is well, eating 3 meals a day. He does not recall receiving ONS at facility or able to provide much detail as far as how accepting he is of ONS. A bit distracted during my visit w/ frequent interruptions from cell phone going off in room. He states over the past few months he has had an altered sense of taste, says food - specifically meat had a "funky taste." Has hx of multiple intubations and complicated admissions. Dysgeusia has slowly improved over time, feels it is nearly resolved and has a positive improvement in po/appetite. He states his appetite is great, eating everything. Denies N/V/D/C abd pain, self feeding deficits, or mechanical difficulties w/ po. Discussed increased nutrition needs for wound healing, agrees to receive ensure ONS. Of note, pt previously met chronic severe malnutrition criteria per RD assessment 02/21/25. His wts have since improved w/ improvement/stabilization in nutrition acceptance and PEG removal, however he did come in w/ volume overload. CT chest: mild interstitial pulmonary edema, small pleural effusions, new ascites and omental edema in upper abdomen. Lowest wt was 114# in January 2025. CBW via SS 143#. Estimated Daily Nutrient Needs: Energy Requirements Based On: Kcal/kg Weight Used for Energy Requirements: [place] Weight for Energy Calculation (kg): 75 kg Total Energy Requirements (kcals/day): 2495-8220 (25-30 kcals/kg) Weight Used for Protein Requirements: [place] Weight in Kg Used for Protein Requirements: 75 kg Estimated Total Protein (g/day): 105-113 (1.4-1.5 g/kg) Estimated Daily Total Fluid (ml/day): 1 ml/kcal or per MD Nutrition Related Findings: Wound Type: Multiple, Wound Vac (per wound care: 1.) Sacrum: Stage 4 pressure injury 2.) Left toes 1-4: Arterial Ulcer (Unknown)) Isolation Status: No active isolations Food Allergies: NKFA Teeth: Missing teeth, Dentures upper, Dentures lower Room Service: Selective Kee Scale Score: 18 Peripheral Vascular (WDL): Exceptions to WDL Abdomen Inspection: Soft; Bowel Sounds (All Quadrants): Active Last BM Date: 03/13/25 GI symptoms: Dysgeusia (improved, nearly resolved per pt) Nutrition History: Independent of feeding and Currently at Rehab Level of Consciousness: Alert; Orientation Level: Oriented X4 Code Status, Oxygen Needs, Vital Signs, I/Os: Code Status: Full Code Oxygen Therapy: SpO2: 98 %; O2 Delivery Method: Nasal cannula; O2 Flow Rate (L/min): 4 L/min Vital Signs: Temp: 36.8 C (98.2 F); Heart Rate: 104; Resp: 16; BP: 124/64; MAP (mmHg): 111 Net IO Since Admission: 649 mL [03/15/25 1240] Intake/Output Summary (Last 24 hours) at 03/15/2025 1240 Last data filed at 03/15/2025 0630 Gross per 24 hour Intake 650 ml Output -- Net 650 ml Labs/Meds Reviewed: Scheduled Meds[3] Continuous Meds[4] BMP: Recent Labs 03/13/25 0945 03/14/25 0507 03/15/25 0434 NA 141 141 139 K 3.5 5.2* 4.5 CL 110* 102 100 CO2 25 28 28 BUN 41* 57* 30* CREATININE 3.32* 4.96* 3.13* GLUCOSE 71* 99 91 CALCIUM 7.3* 10.1 9.2 MG -- 2.2 2.0 HEPATIC: Recent Labs 03/13/25 0945 03/15/25 0434 AST 37* 49* ALT 7 14 BILITOT 0.5 0.8 ALKPHOS 122 201* CBC: Recent Labs 03/13/25 0902 03/15/25 0434 WBC 8.0 6.7 HGB 11.8* 8.5* 9.2* HCT 28.4* 30.1* MCV 99.3* 99.7* PLT 392 392 Lab Results Component Value Date EFBP 40 (A) 10/04/2024 Lab Results Component Value Date LDLCALC 109 (H) 03/14/2025 HDL 30 (L) 03/14/2025 CHOL 159 03/14/2025 TRIG 98 03/14/2025 Lab Results Component Value Date TSH 6.88 (H) 03/13/2025 FREET4 0.89 03/15/2025 [id number] 959 (H) 10/22/2019 FOLATE 9.2 10/22/2019 FERRITIN 2,701 (H) 11/22/2024 Current Nutrition Therapies: Adult diet Regular; Low Sodium (2 gm) Current Oral Intake Average Meal Intake: 76-100% Average Supplements Intake: None Ordered Anthropometric Measures: Height: 177.8 cm (5' 10") Current Body Weight: 66.7 kg (147 lb) Weight Source: Standing Scale Admission Body Weight: 67.1 kg (148 lb) (no method) Usual Body Weight: (mtr for updated dry wt - per nephro) [place] Body Weight (lbs) (Calculated): 166 lbs [place] Body Weight (Kg) (Calculated): 75 kg % [place] Body Weight (Calculated): 88.6 % BMI (kg/m2) (Calculated): 21.1 Weight Adjustment For: No Adjustment BMI Categories: Normal Weight (BMI 18.5-24.9) BMI (Calculated): 20.56 Weight: 65 kg (143 lb 4.8 oz) Weight Method: Bed scale Weight History: Wt Readings from Last 20 Encounters: 03/15/25 65 kg (143 lb 4.8 oz) 02/23/25 60.8 kg (134 lb) 02/14/25 59 kg (130 lb) 02/01/25 46.1 kg (101 lb 10.1 oz) 11/28/24 58.9 kg (129 lb 13.6 oz) 08/28/24 93.4 kg (206 lb) 11/12/23 94.3 kg (208 lb) 10/08/23 93.9 kg (207 lb) 08/17/23 90.7 kg (200 lb) 05/01/23 90.7 kg (200 lb) 08/07/22 90.7 kg (200 lb) 12/18/20 85.3 kg (188 lb) Nutrition Diagnosis: Increased nutrient needs related to increase demand for energy/nutrients as evidenced by wounds, dialysis (wound vac) Moderate malnutrition, In context of acute illness or injury related to altered taste perception, other (comment) (multifactorial) as evidenced by Criteria as identified in malnutrition assessment, other (comment), moderate loss of subcutaneous fat, severe muscle loss, localized or generalized fluid accumulation, severe loss of subcutaneous fat, moderate muscle loss (moderate to severe fat and muscle losses) Nutrition Interventions: Food and/or Nutrient Delivery: Continue Current Diet and Start Oral Nutrition Supplement Nutrition Education/Counseling: Education not appropriate Coordination of Nutrition Care: Continue to monitor while inpatient Plan of Care discussed with: Patient Goals: Goals: Meet at least 75% of estimated needs Nutrition Monitoring and Evaluation: Behavioral-Environmental Outcomes: None Identified Food/Nutrient Intake Outcomes: Food and Nutrient Intake, Supplement Intake Physical Signs/Symptoms Outcomes: Biochemical Data Discharge Planning: Too soon to determine Yasemin Ceron MS, RD, LD Contact: or Aud[employer] Chat (dial *[phone] from hospital phone) [1] Past Medical History: Diagnosis Date Acute renal failure (ARF) ([facility]) 10/19/2019 Anemia 12/30/2021 Calcification of abdominal aorta ([facility]) 10/08/202309/[address] abd Diverticulosis 10/08/2023 ESRD on hemodialysis [place] ([facility]) 10/26/2019 Hemodialysis patient ([facility]) ([facility]) HTN (hypertension) 12/01/2022 Hypertension IgA nephropathy IgA nephropathy determined by biopsy of kidney 10/26/2019 Missed vaccination due to patient refusal 10/08/2023 Has a number of non-scientific based beliefs which interfere with his understanding and acceptance of the medical benefit of vaccination. Nonrheumatic aortic valve stenosis 10/08/2023 Paroxysmal A-fib ([facility]) ([facility]) 08/18/2023 Tobacco abuse 10/08/2023 [2] Past Surgical History: Procedure Laterality Date APPENDECTOMY CARDIAC CATHETERIZATION N/A 10/09/2024 Performed by Bob Watson MD at [facility] Cardiac Cath/EP Lab CARDIAC CATHETERIZATION Bilateral 11/01/2024 Performed by Bob Watson MD at [facility] Cardiac Cath/EP Lab CARDIAC CATHETERIZATION N/A 11/01/2024 Performed by Bob Watson MD at [facility] Cardiac Cath/EP Lab COLONOSCOPY N/A 01/24/2025 Performed by Chadd Davis MD at [facility] ENDOSCOPY FISTULAGRAM (HISTORICAL) Left 09/15/2021 LEFT UPPER ARM HX AV FISTULA CREATION IR EMBOLIZATION 10/14/2024 IR EMBOLIZATION 10/14/2024 [facility] SPECIAL PROCEDURES IR FISTULAGRAM 08/07/2022 IR FISTULAGRAM 08/07/2022 [facility] IR IMAGING TONSILLECTOMY (HISTORICAL) [3] Lidocaine, 1 patch, Topical, Daily metoprolol tartrate, 25 mg, Oral, q6h pantoprazole, 40 mg, Oral, BID AC sevelamer carbonate, 800 mg, Oral, TID WC sodium zirconium cyclosilicate, 5 g, Oral, Daily warfarin, 2.5 mg, Oral, Once [4] [facility] Consult Note Consults MELO Ramirez is a 59-year-old male with end-stage renal disease (ESRD) secondary to IgA nephropathy, currently on maintenance hemodialysis since 2019. His course has been complicated by cardiovascular comorbidities including coronary artery disease (status post CABG), paroxysmal atrial fibrillation, aortic stenosis (s/p mechanical valve replacement requiring anticoagulation), and a history of intracranial hemorrhage. He presents with fluid overload and shortness of breath, likely from volume accumulation due to suboptimal ultrafiltration, worsened by atrial flutter and recent Klebsiella pneumonia with lung abscess. His ESRD care is further complicated by hypoalbuminemia (1.5 g/dL), anemia (Hgb 8.5 g/dL), and dry gangrene of the left lower extremity toes, raising concern for critical limb ischemia and potential vascular compromise. He also has a chronic sacral wound with a wound VAC. The case underscores the complexity of managing ESRD in patients with multisystem comorbidities, anticoagulation challenges (subtherapeutic INR), and ongoing infection/inflammation, necessitating a multidisciplinary approach involving nephrology, cardiology, wound care, and vascular surgery. Medical History[1] Social History Socioeconomic History Marital status: Spouse name: Not on file Number of children: Not on file Years of education: Not on file Highest education level: Not on file Occupational History Not on file Tobacco Use Smoking status: Former Current packs/day: 1.00 Average packs/day: 1.4 packs/day for 31.3 years (45.2 ttl pk-yrs) Types: Cigarettes Start date: 1993 [...] Patient declined Food Insecurity: No Food Insecurity (03/13/2025) Hunger Vital Sign Worried About Running Out of Food in the Last Year: Never true Ran Out of Food in the Last Year: Never true Transportation Needs: No Transportation Needs (03/13/2025) PRAPARE - Transportation Lack of Transportation (Medical): No Lack of Transportation (Non-Medical): No Physical Activity: Inactive (02/21/2025) Exercise Vital Sign Days of Exercise per Week: 0 days Minutes of Exercise per Session: 0 min Stress: Stress Concern Present (02/21/2025) [employer] [facility] [employer] - Occupational Stress Questionnaire Feeling of Stress : To some extent Social Connections: Unknown (02/21/2025) Social Connection and Isolation Panel [NHANES] Frequency of Communication with Friends and Family: More than three times a week Frequency of Social Gatherings with Friends and Family: Patient declined Attends Rastafari Services: Patient declined Active Member of Clubs or Organizations: Patient declined Attends Club or Organization Meetings: Patient declined Marital Status: Patient declined Intimate Partner Violence: Not At Risk (03/13/2025) Humiliation, Afraid, Rape, and Kick questionnaire Fear of Current or Ex-Partner: No Emotionally Abused: No Physically Abused: No Sexually Abused: No Housing Stability: Low Risk (03/13/2025) Housing Stability Vital Sign Unable to Pay for Housing in the Last Year: No Number of Times Moved in the Last Year: 0 Homeless in the Last Year: No Family History[2] Current Medications[3] Scheduled medications Scheduled Meds[4] Continuous medications Continuous Meds[5] PRN medications PRN Meds[6] Review of systems as per HPI otherwise 10 point review systems negative BP (!) 147/102 (BP Location: Right arm, Patient Position: Lying) Pulse (!) 122 Temp 36.3 C (97.4 F) (Temporal) Resp 16 Ht 1.778 m (5' 10") Wt 66.8 kg (147 lb 3.2 oz) SpO2 100% BMI 21.12 kg/m Input / Output: 24 HR: Intake/Output Summary (Last 24 hours) at 03/14/2025 1043 Last data filed at 03/13/2025 2204 Gross per 24 hour Intake 0 ml Output 1 ml Net -1 ml Physical Exam Alert and oriented x 3, NAD EOMI OP clear Neck: supple, No JVD CV: RRR without m/r/g Lungs: CTA bilaterally Abd: soft NT/ND +BS Ext: no lower extremity edema Neuro: grossly intact Skin: no rashes Results from last 7 days Lab Units 03/14/25 0507 03/13/25 0945 SODIUM mmol/L 141 141 POTASSIUM mmol/L 5.2* 3.5 CHLORIDE mmol/L 102 110* CO2 mmol/L 28 25 BUN mg/dL 57* 41* CREATININE mg/dL 4.96* 3.32* GLUCOSE mg/dL 99 71* CALCIUM mg/dL 10.1 7.3* Results from last 7 days Lab Units 03/14/25 0507 03/13/25 0945 SODIUM mmol/L 141 141 POTASSIUM mmol/L 5.2* 3.5 CHLORIDE mmol/L 102 110* CO2 mmol/L 28 25 BUN mg/dL 57* 41* CREATININE mg/dL 4.96* 3.32* CALCIUM mg/dL 10.1 7.3* PROTEIN TOTAL g/dL -- 5.5* BILIRUBIN TOTAL mg/dL -- 0.5 ALK PHOS U/L -- 122 ALT U/L -- 7 AST U/L -- 37* GLUCOSE mg/dL 99 71* Results from last 7 days Lab Units 03/14/25 0507 MAGNESIUM mg/dL 2.2 Results from last 7 days Lab Units 03/13/25 0902 WBC AUTO 10*3/uL 8.0 HEMOGLOBIN g/dL 8.5* HEMOGLOBIN BG g/dl 11.8* HEMATOCRIT % 28.4* PLATELETS 10*3/uL 392 CT chest wo IV contrast Final Result 1. Congestive heart failure with mild interstitial pulmonary edema and small pleural effusions. 2. Mild thoracic lymphadenopathy, most likely reactive. 3. No acute lung consolidation. Multifocal areas of irregular pulmonary fibrosis are unchanged. 4. New ascites, omental edema and nodularity in the upper abdomen. Report Dictated on Electronically Signed By: Bettye Ribera MD Electronically Signed Date/Time: 03/13/2025 12:44 PM EDT XR chest 1 view Final Result 1. Limited supine study. 2. Cardiomegaly with probable pulmonary venous congestion. 3. Hyperinflated lungs with chronic, ill-defined opacities in both lungs which are most likely areas of fibrosis. No definite lung consolidation. Report Dictated on Electronically Signed By: Bettye Ribera MD Electronically Signed Date/Time: 03/13/2025 9:18 AM EDT Assessment: 59-year-old male with ESRD on hemodialysis due to IgA nephropathy, presenting with fluid overload, shortness of breath, and atrial flutter. Complex comorbidities include CAD s/p CABG, mechanical valve on warfarin (subtherapeutic INR), prior ICH, anemia, hypoalbuminemia, chronic wounds, and dry gangrene of LLE toes. Plan: Continue TTS HD with aggressive ultrafiltration for volume control. Monitor weights, BP, and fluid balance closely. Nephrology to evaluate dialysis adequacy and adjust dry weight. Monitor electrolytes, BUN/Cr, and albumin. Hold nephrotoxic agents; dose meds renally. Coordinate with cardiology for rate control and anticoagulation in atrial flutter. Vascular surgery and wound care consults for dry gangrene and sacral wound. Please message me through [employer] chat with any questions or concerns. Wellington Nicole MD 03/14/2025 10:43 AM [facility] [address] [place] [address], [address] [place] [address] Office: [phone] [1] Past Medical History: Diagnosis Date Acute renal failure (ARF) ([facility]) 10/19/2019 Anemia 12/30/2021 Calcification of abdominal aorta ([facility]) 10/08/202309/[address] abd Diverticulosis 10/08/2023 ESRD on hemodialysis ([facility]) ([facility]) 10/26/2019 Hemodialysis patient ([facility]) ([facility]) HTN (hypertension) 12/01/2022 Hypertension IgA nephropathy IgA nephropathy determined by biopsy of kidney 10/26/2019 Missed vaccination due to patient refusal 10/08/2023 Has a number of non-scientific based beliefs which interfere with his understanding and acceptance of the medical benefit of vaccination. Nonrheumatic aortic valve stenosis 10/08/2023 Paroxysmal A-fib ([facility]) ([facility]) 08/18/2023 Tobacco abuse 10/08/2023 [2] Family History Problem Relation Name Age of Onset No Known Problems Mother No Known Problems Father [3] Current Facility-Administered Medications: acetaminophen (Tylenol) tablet 650 mg, 650 mg, Oral, q6h PRN OR acetaminophen (Tylenol) suppository 650 mg, 650 mg, Rectal, q6h PRN, Rubi Sanon MD ipratropium-albuterol (Duo-Neb) 0.5-2.5 mg/3 mL nebulizer solution 3 mL, 3 mL, Nebulization, q8h PRN, Rubi Sanon MD Lidocaine 4 % patch 1 patch, 1 patch, Topical, Daily, Rubi Sanon MD melatonin tablet 3 mg, 3 mg, Oral, Nightly PRN, Rubi Sanon MD metoprolol tartrate (Lopressor) tablet 25 mg, 25 mg, Oral, BID, Rubi Sanon MD, 25 mg at 03/14/25 0921 ondansetron ODT (Zofran-ODT) disintegrating tablet 4 mg, 4 mg, Oral, q8h PRN OR ondansetron (Zofran) injection 4 mg, 4 mg, IntraVENous, q6h PRN, Rubi Sanon MD pantoprazole (ProtoNix) EC tablet 40 mg, 40 mg, Oral, BID AC, Rubi Sanon MD, 40 mg at 03/14/25 0921 polyethylene glycol (PEG) 3350 (Miralax) packet 17 g, 17 g, Oral, Daily PRN, Rubi Sanon MD sevelamer carbonate (Renvela) tablet 800 mg, 800 mg, Oral, TID WC, Rubi Sanon MD, 800 mg at 03/13/25 1813 sodium zirconium cyclosilicate (Lokelma) packet 5 g, 5 g, Oral, Daily, Rubi Sanon MD [4] Lidocaine, 1 patch, Topical, Daily metoprolol tartrate, 25 mg, Oral, BID pantoprazole, 40 mg, Oral, BID AC sevelamer carbonate, 800 mg, Oral, TID WC sodium zirconium cyclosilicate, 5 g, Oral, Daily [5] [6] PRN medications: acetaminophen OR acetaminophen, ipratropium-albuterol, melatonin, ondansetron ODT OR ondansetron, polyethylene glycol (PEG) 3350 Associated Order(s): IP CONSULT TO CARDIOLOGY [facility] [place] [facility] [place]Electrophysiology Consult Note Reason for Consult/Chief Complaint: Volume overload, afib rvr Referring provider: Dr Kidd Established ortho tech: Dr Shah History of Present Illness: Jun Snyder is a 59 y.o. male with a medical history of ESRD on dialysis, HFimpEF, his EF has been documented as low as 30 to 40% in the past however his most recent EF on 02/20/2025 was around 60%. He does have a history of reduced RV function.. He has a history of IgA nephropathy, mechanical SAVR 23 mm [place] mechanical valve, without PVI/maze or ANNE L. He also has a history of persistent atrial flutter/atrial tachycardia. He was last seen by electrophysiology on .5 for persistent a flutter and A. tach, started on amiodarone and he had a YG cardioversion at that time, per chart review he has been in and out of a flutter, however his most recent EKG on 02/25/2025 showed sinus rhythm.. Of note his surgical course was very complicated, [facility]. He recently was at [facility] for Klebsiella pneumonia, hemoptysis and lung abscess He presented to the ED with chief complaint of worsening shortness of breath at dialysis. His last dialysis session was on 03/08, he has missed 2 dialysis sessions prior to presenting. NT proBNP was elevated at 30,000 however prior was also greater than 30,000. His imaging shows evidence of pulmonary venous congestion. CT chest does not show any acute lung consolidation, but does continue to show multifocal areas of irregular pulmonary fibrosis, mild interstitial pulmonary edema small pleural effusions as well as new ascites and omental edema and nodularity in upper abdomen. She EKG demonstrates a flutter with rates 112, his telemetry demonstrates afib/flutter rates 110-130. Assessment/Plan HF NYHA Class [] I [] II [x] III [] IV []Unable to assess Volume overload ESRD on dialysis Discussed with nephrology, patient will dialyze today with plans for aggressive ultrafiltration for volume control Atrial flutter Atrial fibrillation Patient has had cardioversion in the past, initially it was unsuccessful however EKGs demonstrate that patient has been in sinus rhythm since his cardioversion. On most recent hospital admission prior to this 1 patient was in normal sinus rhythm. His rates are not well-controlled currently and this certainly could be in the setting of volume overload, missed dialysis For now we will attempt optimal rate control strategy, will increase metoprolol to 3 times daily for now and tolerating well and rate still not well-controlled can increase to every 6 hours No current plans for cardioversion, we will attempt a rate control strategy first however if he remains in A-fib/flutter with elevated rates he is still symptomatic, we may have to consider repeat cardioversion We will continue to follow Severe aortic stenosis status post SAVR with mechanical aortic valve 23 mm [place] mechanical valve Continue Coumadin - goal INR 2-3 Managed by pharmacy/[facility] Medications: Scheduled Meds[1] Infusion Medications: Continuous Meds[2] Physical Examination: Vitals: 03/13/25 2311 03/14/25 0315 03/14/25 0323 03/14/25 0734 BP: 146/93 139/91 (!) 147/102 BP Location: Right arm Right arm Right arm Patient Position: Lying Sitting Lying Pulse: 112 115 (!) 122 Resp: 19 20 16 Temp: 36.5 C (97.7 F) 36.4 C (97.5 F) 36.3 C (97.4 F) TempSrc: Temporal Temporal Temporal SpO2: 100% 99% 100% Weight: 147 lb 3.2 oz (66.8 kg) Height: Intake/Output Summary (Last 24 hours) at 03/14/2025 0912 Last data filed at 03/13/2025 2204 Gross per 24 hour Intake 0 ml Output 1 ml Net -1 ml Wt Readings from Last 3 Encounters: 03/14/25 147 lb 3.2 oz (66.8 kg) 02/23/25 134 lb (60.8 kg) 02/14/25 130 lb (59 kg) Physical Exam Constitutional: no distress. well nourished. well hydrated Psychiatric: A &O x 3. Medical insight ok NMT: Oral mucosa is pink and moist Neck: elevated JVD. Respiratory: Lungs are with rales, congested Cardiac exam: Rhythm: irregular ; Normal S1 and S2 Murmur: no Other: No rub; no gallop Vasc: Peripheral pulses intact Abdomen: soft Extremities: no LE edema Skin: Warm to touch and well perfused Laboratory Tests: TROPONIN I, CONVENTIONAL SENSITIVITY CK Date Value Ref Range Status 10/21/2024 51 30 - 185 U/L Final 10/14/2024 137 30 - 185 U/L Final TROPONIN I Date Value Ref Range Status 08/17/2023 0.094 (H) <0.034 ng/mL Final 08/16/2023 0.062 (H) <0.034 ng/mL Final 08/16/2023 0.037 (H) <0.034 ng/mL Final 10/19/2019 0.075 (H) 0.000 - 0.034 ng/mL Final Comment: . TROPONIN I, HIGH SENSITIVITY Troponin HS Serial Baseline Date Value Ref Range Status 03/13/2025 39 (H) <=35 ng/L Final Comment: In individuals presenting with symptoms > 2h, a baseline troponin <= 5 ng/L suggests acute cardiac injury is unlikely and further serial testing is generally not indicated. 02/25/2025 84 (H) <=35 ng/L Final Comment: In individuals presenting with symptoms > 2h, a baseline troponin <= 5 ng/L suggests acute cardiac injury is unlikely and further serial testing is generally not indicated. 01/19/2025 99 (H) <=35 ng/L Final Comment: In individuals presenting with symptoms > 2h, a baseline troponin <= 5 ng/L suggests acute cardiac injury is unlikely and further serial testing is generally not indicated. 10/06/2024 3,402 (HH) <=35 ng/L Final 10/03/2024 557 (HH) <=35 ng/L Final 2h Troponin HS (Serial 2nd Troponin) Date Value Ref Range Status 03/13/2025 44 (H) <=35 ng/L Final Comment: 2h troponin (2nd troponin) samples collected between 1h 40 min and 2h and 20 min of the baseline collection time can be utilized to interpret delta troponins as per [employer] algorithms. Samples collected outside this timeframe need to be interpreted clinically. Rising or falling troponin delta between 2 - 15 ng/L as compared to baseline value requires a 3rd serial troponin 02/26/2025 80 (H) <=35 ng/L Final Comment: 2h troponin (2nd troponin) samples collected between 1h 40 min and 2h and 20 min of the baseline collection time can be utilized to interpret delta troponins as per [employer] algorithms. Samples collected outside this timeframe need to be interpreted clinically. Rising or falling troponin delta between 2 - 15 ng/L as compared to baseline value requires a 3rd serial troponin 01/19/2025 106 (H) <=35 ng/L Final Comment: 2h troponin (2nd troponin) samples collected between 1h 40 min and 2h and 20 min of the baseline collection time can be utilized to interpret delta troponins as per [employer] algorithms. Samples collected outside this timeframe need to be interpreted clinically. Rising or falling troponin delta between 2 - 15 ng/L as compared to baseline value requires a 3rd serial troponin 10/06/2024 3,138 (HH) <=35 ng/L Final 10/03/2024 653 (HH) <=35 ng/L Final Absolute Delta (2nd - Baseline Troponin) Date Value Ref Range Status 10/06/2024 -264 <=2 ng/L Final Comment: A troponin delta greater than or equal to 15 ng/L is significant for acute cardiac injury. Values less than 15 but greater than 2 are an 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 change requiring a 3rd serial troponin to be drawn. Values less than or equal to 2 indicate acute cardiac injury is not likely, see external algorithms for further clinical guidance. 10/03/2024 96 <=2 ng/L Final Comment: A troponin delta greater than or equal to 15 ng/L is significant for acute cardiac injury. Values less than 15 but greater than 2 are an 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 change requiring a 3rd serial troponin to be drawn. Values less than or equal to 2 indicate acute cardiac injury is not likely, see external algorithms for further clinical guidance. 4h Troponin HS (Serial 3rd Troponin) Date Value Ref Range Status 03/13/2025 50 (H) <=35 ng/L Final Comment: 4h troponin (3rd troponin) samples collected between 1h 40 min and 2h and 20 min of the 2h troponin collection time can be utilized to interpret delta troponins as per [employer] algorithms. Samples collected outside this timeframe need to be interpreted clinically. Rising or falling troponin delta between 2 - 15 ng/L as compared to 2h troponin value requires further evaluation. 02/26/2025 75 (H) <=35 ng/L Final Comment: 4h troponin (3rd troponin) samples collected between 1h 40 min and 2h and 20 min of the 2h troponin collection time can be utilized to interpret delta troponins as per [employer] algorithms. Samples collected outside this timeframe need to be interpreted clinically. Rising or falling troponin delta between 2 - 15 ng/L as compared to 2h troponin value requires further evaluation. 01/19/2025 94 (H) <=35 ng/L Final Comment: 4h troponin (3rd troponin) samples collected between 1h 40 min and 2h and 20 min of the 2h troponin collection time can be utilized to interpret delta troponins as per [employer] algorithms. Samples collected outside this timeframe need to be interpreted clinically. Rising or falling troponin delta between 2 - 15 ng/L as compared to 2h troponin value requires further evaluation. No results found for: TROPDELTSEC Recent Labs 03/13/25 0945 03/14/25 0507 NA 141 141 K 3.5 5.2* CL 110* 102 CO2 25 28 BUN 41* 57* CREATININE 3.32* 4.96* EGFR 20.5* 12.7* Recent Labs 03/13/25 0902 WBC 8.0 HGB 11.8* 8.5* HCT 28.4* MCV 99.3* PLT 392 No results found for: "HGBA1C" Lab Results Component Value Date TSH 6.88 (H) 03/13/2025 Lab Results Component Value Date CHOL 159 03/14/2025 Lab Results Component Value Date HDL 30 (L) 03/14/2025 Lab Results Component Value Date LDLCALC 109 (H) 03/14/2025 Lab Results Component Value Date TRIG 98 03/14/2025 TRIG 99 10/14/2024 No results found for: "CHOLHDL" No results found for: LDLCHOLESTER Recent Labs 03/13/25 1729 BNP >30,000* Recent Labs 03/13/25 0902 INR 1.7* Results from last 7 days Lab Units 03/13/25 0945 AST U/L 37* ALT U/L 7 Lab Results Component Value Date IRON 32 (L) 11/22/2024 TIBC 114 (L) 11/22/2024 FERRITIN 2,701 (H) 11/22/2024 Radiology: CXR: personally reviewed: Cardiac Tests Personally Reviewed: Last EKG 03/13/25 ECG 12-LEAD (Preliminary) This result has not been signed. Information might be incomplete. Impression Atrial flutter IVCD, consider RBBB Probable lateral infarct, age indeterminate Anteroseptal infarct, age indeterminate Telemetry findings: Aflutter , coarse fib? Rates 110-130 Reports reviewed: Last Echo 02/20/25 TRANSTHORACIC ECHOCARDIOGRAM (TTE) COMPLETE (CONTRAST/BUBBLE/3D PRN) 02/23/2025 2:45 PM (Final) Interpretation Summary Left Ventricle: Left ventricle size is normal. Moderately increased wall thickness. Normal left ventricular systolic function. The EF by visual approximation is 60%. Normal wall motion. Right Ventricle: Right ventricle is moderately dilated. Moderately reduced systolic function. Aortic Valve: [place] Luis mechanical aortic valve with a size of 23 mm. AV mean gradient is 10 mmHg. No cusp thickening. No cusp calcification. No regurgitation. Mitral Valve: Mild stenosis noted. MV mean gradient is 7 mmHg. Tricuspid Valve: Moderately severe (3+) regurgitation. RVSP is 57 mmHg. Left Atrium: Left atrium is mildly dilated. Right Atrium: Right atrium is severely dilated. Addendum by: Daryn Chowdary MD on 02/26/2025 8:39 AM Signed by: Daryn Chowdary MD on 02/23/2025 2:45 PM Last Cath 10/03/24 CARDIAC PROCEDURE 11/01/2024 10:59 AM (Final) Conclusion No evidence of pulmonary embolism in the right or left pulmonary artery. Severe pulmonary hypertension (79/38 mmHg, mean: 52 mmHg). Fluoroscopy of the mechanical aortic valve in multiple projections demonstrates complete opening of both leaflets without restriction, complete closure, no rocking of valve ring. Signed by: Bob Watson MD on 11/01/2024 10:59 AM Last Stress Test No results found for this or any previous visit. Last EP study No results found for this or any previous visit. EF BP Date Value Ref Range Status 10/04/2024 40 (A) 55 - 100 % Final Ash Henry DO DATE of SERVICE: 03/14/2025 [1] Lidocaine, 1 patch, Topical, Daily metoprolol tartrate, 25 mg, Oral, BID pantoprazole, 40 mg, Oral, BID AC sevelamer carbonate, 800 mg, Oral, TID WC sodium zirconium cyclosilicate, 5 g, Oral, Daily [2] Cosigned by Ruy Ennis MD at 03/14/2025 3:28 PM EDT Associated attestation - Ruy Ennis MD - 03/14/2025 3:28 PM EDT I, Dr. Ruy Ennis, saw and evaluated the patient on 03/14/2025. I personally obtained the francis and critical portions of the history and physical exam. I reviewed the chart, the fellow's documentation, and discussed the patient with the fellow. I agree with the fellow's medical decision making and have edited the note to reflect my clinical findings and my assessment and plan. In summary, Jun Snyder is a 59 yo M who is in a-flutter -- he has had difficult to control rhythm. Has failed DCCV/amio in the past -- but was in NSR in early February 2025. On HD for ESRD - Coumadin for mechanical AVR - He is back in a-flutter -- will attempt rate control -- can re-engage with EP if needed, but with his RVF and co-morbidities hopefully rate control will work to keep him asymptomatic from that perspective Heart Failure will follow up Ruy Ennis MD Department of Cardiovascular Disease, Division of Heart Failure [facility] 3:25 PM 03/14/25 Associated Order(s): INPATIENT CONSULT TO WOUND CARE PROVIDERS Images from the original note were not included. [facility] Wound VAC CONSULT Note Jun Snyder AGE: 59 y.o. GENDER: male : 1965 Subjective: HISTORY of PRESENT ILLNESS HPI Jun Snyder is a 59 y.o. male who presents for a wound consult and NPWT application. HPI: Patient is a 59 y.o. male with past medical history of hypertension, IgA nephropathy, ESRD on HD, CAD, history of CABG, history of intracranial bleed, paroxysmal A-fib aortic stenosis, s/p mechanical valve replacement recent admission here from 02/20-03/05 for hemoptysis due to Klebsiella pneumonia with lung abscess. He went to dialysis today, but was sent to ED due to worsening shortness of breath. Wound Care consulted for wound vac and left toes Patient resting in bed. Denies any needs. Wound vac applied with patient tolerating well. PAST MEDICAL HISTORY Medical History[1] PAST SURGICAL HISTORY Surgical History[2] FAMILY HISTORY Family History[3] SOCIAL HISTORY Social History[4] ALLERGIES Allergies[5] MEDICATIONS Medications Ordered Prior to Encounter[6] REVIEW OF SYSTEMS Pertinent items are noted in HPI. Objective: BP 147/85 Pulse 106 Temp 37.1 C (98.7 F) Resp 16 Ht 1.778 m (5' 10") Wt 66.8 kg (147 lb 3.2 oz) SpO2 98% BMI 21.12 kg/m PHYSICAL EXAM General appearance: in no apparent distress, well developed and well nourished, and non-toxic Skin: warm and dry Pulmonary: Normal effort, no respiratory distress, no cyanosis Left toes 1-4: Necrotic tissue. No open wounds. No drainage present. Odor noted. 03/14/25 Sacrum: Focused assessment on wound VAC dressing change. Wet to dry dressing removed from wound with saline without any difficulties. Small amount of serosang drainage noted from wound. No purulence, bleeding or odor. All wounds and periwounds cleansed with saline, patted dry and cavilon no sting applied to periwound. Patient's stage 4 pressure injury wound measuring 7x7.5x0.8 cm with undermining from 9-4 @ 0.8cm. Wound bed with pink tissue. Applied 1 piece of black foam. non-disposable) Wound VAC well sealed at 125 mmHg continuous suction. 03/14/25 LABS CBC: Lab Results Component Value Date WBC 8.0 03/13/2025 HGB 8.5 (L) 03/13/2025 HGB 11.8 (L) 03/13/2025 HCT 28.4 (L) 03/13/2025 MCV 99.3 (H) 03/13/2025 PLT 392 03/13/2025 BMP: Lab Results Component Value Date NA 141 03/14/2025 K 5.2 (H) 03/14/2025 CL 102 03/14/2025 CO2 28 03/14/2025 BUN 57 (H) 03/14/2025 CREATININE 4.96 (H) 03/14/2025 PT/INR: Lab Results Component Value Date PROTIME 17.7 (H) 03/13/2025 INR 1.7 (H) 03/13/2025 Prealbumin: No results found for: "PREALBUMIN" Albumin:No components found for: LABALBU Sed Rate:No results found for: SEDRATE Micro: No components found for: BC Assessment/Plan: Sacrum: Stage 4 pressure injury - Clean with NS, apply NPWT. Place black foam to wound bed at 125mmHg continuous, change 3 times a week and PRN - Change cannister once a week or when full. - If suction fails: - remove vac dressing - cleanse wound with normal saline - pack wound with saline moistened gauze and change every 12 hours or at discharge. Nursing staff to perform dressing change: Left toes 1-4: Arterial Ulcer (Unknown) - Cleanse with NS, apply Betadine and allow to dry, leave TISHA daily and PRN Nutritional support Wound Care to follow Recommend to follow up at [facility] wound care center after hospital discharge. Any [...] my own independent evaluation of this patient. VAC applied by Jesus Lacy RN [1] Past Medical History: Diagnosis Date Acute renal failure (ARF) (HCC) 10/19/2019 Anemia 12/30/2021 Calcification of abdominal aorta (HCC) 10/08/202309/[address] abd Diverticulosis 10/08/2023 [place] ([facility]) 10/26/2019 Hemodialysis patient ([facility] ([facility]) HTN (hypertension) 12/01/2022 Hypertension IgA nephropathy IgA nephropathy determined by biopsy of kidney 10/26/2019 Missed vaccination due to patient refusal 10/08/2023 Has a number of non-scientific based beliefs which interfere with his understanding and acceptance of the medical benefit of vaccination. Nonrheumatic aortic valve stenosis 10/08/2023 Paroxysmal A-fib ([facility] ([facility]) 08/18/2023 Tobacco abuse 10/08/2023 [2] Past Surgical History: Procedure Laterality Date APPENDECTOMY CARDIAC CATHETERIZATION N/A 10/09/2024 Performed by Bob Watson MD at [facility] Cardiac Cath/EP Lab CARDIAC CATHETERIZATION Bilateral 11/01/2024 Performed by Bob Watson MD at [facility] Cardiac Cath/EP Lab CARDIAC CATHETERIZATION N/A 11/01/2024 Performed by Bob Watson MD at [facility] Cardiac Cath/EP Lab COLONOSCOPY N/A 01/24/2025 Performed by Chadd Davis MD at [facility] ENDOSCOPY FISTULAGRAM (HISTORICAL) Left 09/15/2021 LEFT UPPER ARM HX AV FISTULA CREATION IR EMBOLIZATION 10/14/2024 IR EMBOLIZATION 10/14/2024 [facility] SPECIAL PROCEDURES IR FISTULAGRAM 08/07/2022 IR FISTULAGRAM 08/07/2022 SB IR IMAGING TONSILLECTOMY (HISTORICAL) [3] Family History Problem Relation Name Age of Onset No Known Problems Mother No Known Problems Father [4] Social History Tobacco Use Smoking status: Former Current packs/day: 1.00 Average packs/day: 1.4 packs/day for 31.3 years (45.2 ttl pk-yrs) Types: Cigarettes Start date: 1993 [...] Prior to Encounter Medication Sig Dispense Refill ipratropium-albuterol (Duo-Neb) 0.5-2.5 mg/3 mL nebulizer solution Take 3 mL by nebulization every 8 hours as needed for shortness of breath. Lidocaine 4 % patch Apply 1 patch topically daily. melatonin 3 MG tablet Take 1 tablet (3 mg) by mouth Nightly as needed for sleep. metoprolol tartrate (Lopressor) 25 MG tablet Take 1 tablet (25 mg) by mouth 2 times daily. 60 tablet 11 pantoprazole (ProtoNix) 40 MG EC tablet Take 1 tablet (40 mg) by mouth 2 times daily (before meals). Do not crush, chew, or split. 60 tablet 11 sevelamer carbonate (Renvela) 800 MG tablet Take 1 tablet (800 mg) by mouth 3 times daily (with meals). Swallow tablet whole; do not crush, break, or chew. 90 tablet 11 sodium zirconium cyclosilicate (Lokelma) 5 g packet Take 5 g by mouth daily. warfarin (Coumadin) 1 MG tablet Take as directed per After Visit Summary. acetaminophen (Tylenol) 325 MG tablet Take 650 mg by mouth every 6 hours as needed for mild pain (1-3), fever or moderate pain (4-6). (Patient not taking: Reported on 03/13/2025) amoxicillin-clavulanate (Augmentin) 500-125 MG tablet Take 1 tablet (500 mg) by mouth daily with supper. Augmentin 500mg q24 (to be taken after HD on HD days) until 03/10/25 (Patient not taking: Reported on 03/13/2025) B complex-vitamin C-folic acid (Nephro-Nato Rx) 1 MG tablet Take 1 tablet by mouth daily. (Patient not taking: Reported on 03/13/2025) bisacodyl (Dulcolax) 10 MG suppository Insert 10 mg into the rectum Daily as needed for constipation. (Patient not taking: Reported on 03/13/2025) bisacodyl (Dulcolax) 5 MG EC tablet Take 5 mg by mouth Daily as needed for constipation. Do not crush, chew, or split. (Patient not taking: Reported on 03/13/2025) magnesium hydroxide (Milk of Magnesia) 800 MG/5ML suspension Take 30 mL by mouth Daily as needed for constipation (if no bm in 3 days). (Patient not taking: Reported on 03/13/2025) naloxone in sodium chloride (PF) injection injection Inject 0.04 mg into the shoulder, thigh, or buttocks as needed for opioid reversal or respiratory depression. QUEtiapine (SEROquel) 25 MG tablet Take 1 tablet (25 mg) by mouth Nightly. (Patient not taking: Reported on 03/13/2025) 30 tablet 0 Cosigned by Ahsan Gill DO at 03/19/2025 4:44 PM EDT documented in this encounter [facility] 03-15-2025 Note Patient currently of f unit, will attempt smoking cessation counseling at a later date. [facility] 03-15-2025 Nurse Note Patient Name: Jun Snyder Patient : 1965 Acct: [id number] Date of Admission: 03/13/2025 Room[facility]Bed: [facility] A Code Status: Full Code Allergies: Allergies[1] Diagnosis: Problem List[2] Treatment: Hemodilaysis 2:1 Priority: Routine Location: Acute Room Diabetic: Yes NPO: No Isolation Precautions: None Consent for Treatment Verified: Yes Blood Consent Verified: Not Applicable ICEBOAT: Identify, Consent, Equipment, HepB Status, Orders Complete, Access Verified, Timeliness (O2 and wall suction bedside) Second Clinician Verifying: Prince Sawyer Time out performed prior to access at 1232. Report Received from Primary RN at 1000. Primary RN (First Initial, Last Name, Title): Britton Dobbins RN Incapacitated Nurse Education Completed: Chandana Sawyer RN HBsAg ONLY: Date Drawn: February 24, 2025 [...] N/A Date of Last Dressing Change: N/A N/A, [address]?: N/A Red Alcohol Caps in place?: N/A Gauze Dressing?: N/A Non-Dialysis Use?: No Comment: Flows: Good If access problem, who was notified: Pre and Post-Assessment Patient Vitals for the past 8 hrs: Level of Consciousness Oriented X Heart Rhythm O2 Device Bilateral Breath Sounds Skin Color Skin Condition/Temp Abdomen Inspection Bowel Sounds (All Quadrants) 03/15/25 0900 -- -- -- -- Clear;Diminished Ecchymosis;Red -- Soft;Nondistended Active 03/15/25 1231 Alert (0) 3 Regular Nasal cannula Clear Ecchymosis Warm;Dry Soft Active Labs Lab Results Component Value Date/Time WBC 6.7 03/15/2025 0434 HGB 9.2 (L) 03/15/2025 0434 HGB 11.8 (L) 03/13/2025 0902 HCT 30.1 (L) 03/15/2025 0434 PLT 392 03/15/2025 0434 NA 139 03/15/2025 0434 K 4.5 03/15/2025 0434 CL 100 03/15/2025 0434 CO2 28 03/15/2025 0434 BUN 30 (H) 03/15/2025 0434 CREATININE 3.13 (H) 03/15/2025 0434 CREATININE 9.99 (H) 10/27/2019 0545 CALCIUM 9.2 03/15/2025 0434 PHOS 2.6 02/23/2025 0032 IV Drips and Rate/Dose Continuous Meds[3] Safety - Before each treatment: Dialysis Machine No.: [id number] RO Machine Number: [id number] Dialyzer Lot No.: [id number] Tubing Lot Number: [id number] All Connections Secure: Yes Venous Parameters Set: Yes Arterial Parameters Set: Yes NS Bag: Yes Saline Line Double Clamped: Yes Dialyzer: Nipro Prime Volume (mL): 200 mL RO Machine Number: [id number] RO Machine Log Sheet Completed: Yes Machine Alarm Self Test: Completed, Passed (03/15/25 1215) Air Foam Detector: Tested, Proper Function, pH Reading Extracorporeal Circuit Tested for Integrity: Yes Machine Conductivity: 13.8 Manual Conductivity: 13.7 Manual Ph: 7 Bleach Test (Neg): Yes Bath Temperature: 36 C (96.8 F) Conductivity Meter Serial #: [id number] Machine Functioning Alarm Free? Yes Dialysis Bath: K+ (Potassium): 2 Ca+ (Calcium): 2.5 Na+ (Sodium): 135 HCO3 (Bicarb): 35 Chlorine Testing - Before each treatment and every 4 hours: Time On: 1237 Time Off: 1537 Treatment Goal: 1L Weight Height: 177.8 cm (5' 10") (03/14/25 1617) Weight: 65 kg (143 lb 4.8 oz) (03/15/25 07) BMI (Calculated): 20.56 (03/15/25 0700) 1st check: less than 0.1 ppm at: 1145 2nd check: less than 0.1 ppm at: 1445 3rd check: Not Applicable (if greater than 0.1 ppm, then check every 30 minutes from secondary) Access Flows and Pressures Patient Vitals for the past 8 hrs: Blood Flow Rate (mL/min) Ultrafiltration Rate (ml/hr) Arterial Pressure (mmHg) Venous Pressure (mmHg) TMP DFR Access Visible Intra-Hemodialysis Comments 03/15/25 1237 200 mL/min 500 ml/hr 10 mmHg 80 mmHg 60 600 Yes Tx initiated call light within reach 03/15/25 1239 400 mL/min 500 ml/hr -60 mmHg 200 mmHg 90 600 Yes BFr increased 03/15/25 1245 400 mL/min 500 ml/hr -90 mmHg 220 mmHg 90 600 Yes pt stable sleeeping rmv 99 03/15/25 1300 400 mL/min 500 ml/hr -80 mmHg 230 mmHg 90 600 Yes pt resting rmv 206 03/15/25 1315 400 mL/min 500 ml/hr -120 mmHg 220 mmHg 90 600 Yes pt stable rmv 326 Vital Signs Patient Vitals for the past 24 hrs: BP Temp Temp src Pulse Resp SpO2 Height Weight 03/15/25 1315 139/89 -- -- 91 -- -- -- -- 03/15/25 1300 132/82 -- -- 102 -- -- -- -- 03/15/25 1245 128/88 -- -- 114 -- -- -- -- 03/15/25 1239 131/81 -- -- 102 -- -- -- -- 03/15/25 1237 130/91 -- -- 96 -- -- -- -- 03/15/25 1231 139/78 36.9 C (98.4 F) -- 108 18 99 % -- -- 03/15/25 1109 139/89 36.3 C (97.3 F) Temporal 101 16 99 % -- -- 03/15/25 0826 133/90 36.7 C (98.1 F) Temporal 112 16 97 % -- -- 03/15/25 0700 -- -- -- -- -- -- -- 65 kg (143 lb 4.8 oz) 03/15/25 0628 -- -- -- 114 -- -- -- -- 03/15/25 0229 122/86 36.4 C (97.5 F) Temporal 117 16 94 % -- -- 03/14/25 2320 131/86 36.2 C (97.1 F) Temporal 102 16 100 % -- -- 03/14/25 2135 136/90 36.4 C (97.5 F) Temporal 115 16 100 % -- -- 03/14/25 2128 136/90 -- -- 104 -- -- -- -- 03/14/25 1639 140/97 36.2 C (97.2 F) Temporal 109 16 100 % -- -- 03/14/25 1617 -- -- -- -- -- -- 1.778 m (5' 10") -- 03/14/25 1544 124/64 -- -- 104 -- -- -- -- 03/14/25 1537 121/71 36.8 C (98.2 F) -- 101 16 98 % -- -- 03/14/25 1530 132/77 -- -- 104 -- -- -- -- 03/14/25 1515 124/76 -- -- 104 -- -- -- -- 03/14/25 1500 131/80 -- -- 115 -- -- -- -- 03/14/25 1445 133/84 -- -- 116 -- -- -- -- 03/14/25 1430 133/70 -- -- 103 -- -- -- -- 03/14/25 1415 127/71 -- -- 104 -- -- -- -- 03/14/25 1400 134/74 -- -- 104 -- -- -- -- 03/14/25 1345 129/80 -- -- 112 -- -- -- -- 03/14/25 1330 149/83 -- -- 113 -- -- -- -- Post-Dialysis Arterial Catheter Locking Solution: Not Applicable Venous Catheter Locking Solution: Not Applicable Post-Treatment Procedures: Blood returned, Access bleeding time < 10 minutes Machine Disinfection Process: Exterior Machine Disinfection Rinseback Volume (mL): 300 mL Total Liters Processed (L/min): 76.1 L/min Dialyzer Clearance: Moderately streaked Hemodialysis Intake (ml): 500 ml Hemodialysis Output (ml): 1500 ml NET Removed (ml): 1000 ml Tolerated Treatment: Good Patient Response to Treatment: stable Physician Notified: No Patient Disposition: Return to room Charge: $ IP Hemodialysis Charge: Hemodialysis Provider Notification Provider Notification Reason for Communication: Other (Comment) (to inform patient arrival from [place] [facility] room and need for orders) Provider Name: dr sanon Provider Role: Attending physician Method of Communication: Secure chat Response: At bedside Provider Role: Attending physician Method of Communication: Secure chat Response: At bedside Handoff complete and report given to Primary RN at 1545. Primary RN (First Initial, Last Name, Title): Britton Dobbins RN Education Person Educated: Patient Knowledge Base: Substantial Barriers to Learning?: None Preferred method of Learning: Oral Topic(s): Call Light Education, Access Care, Signs and Symptoms of Infection, and Fluid Management Teaching Tools: Explanation Response to Education: Verbalized Understanding [1] Allergies Allergen Reactions Lisinopril Swelling and Angioedema [2] Patient Active Problem List Diagnosis Anemia Paroxysmal A-fib ([facility]) ([facility]) HTN (hypertension) ESRD on hemodialysis ([facility]/HCC) (HCC) IgA nephropathy determined by biopsy of [...] failure with hypoxia (HCC) [J96.01] Tracheostomy care ([facility]) [Z43.0] 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HCC) care home (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 Complication of tracheostomy (CMS/HCC) (HCC) BRBPR (bright red blood per rectum) Hemoptysis SOB (shortness of breath) Moderate malnutrition (CMS/HCC) (HCC) [3] [facility] 03-15-2025 Consult note Associated Order (s): IP CONSULT TO DIETITIAN See dietitian eval dated 03/14/25. Pt tolerating diet well, was started on ensure plus HP BID during admission. Will continue to monitor labs, meds, po intakes and/or enteral nutrition tolerance, skin integrity, wt trends, and overall nutrition status - RD to follow weekly Yasemin Ceron MS, RD, LD Clinical Dietitian Contact: or Audiotoniq Chat (dial [phone] from hospital phone) [facility] 03-15-2025 Plan of care note Problem: Knowledge Deficit Goal: Patient/family/caregiver demonstrates understanding of disease process, treatment plan, medications, and discharge instructions Outcome: Progressing Problem: Potential for Compromised Skin Integrity Goal: Skin Integrity is Maintained or Improved Outcome: Progressing Goal: Nutritional status is improving Outcome: Progressing Problem: Urinary Incontinence Goal: Perineal skin integrity is maintained or improved Outcome: Progressing Problem: Problem Interventions Goal: Assess Nutritional Intake Outcome: Progressing [facility] 03-15-2025 Note Formatting of this n ote might be different from the original. Care Management Progress Note Cardiology following. Pt in A flutter, trying rate control. Has wound vac on sacral area. Pt is refusing surgery. When stable is a bed hold at [facility]. . Length of Stay (Days): 2 GMLOS: No GMLOS Documented [facility] 03-15-2025 Note Formatting of this n ote might be different from the original. Care Management Progress Note Cardiology following. Pt in A flutter, trying rate control. Has wound vac on sacral area. Pt is refusing surgery. When stable is a bed hold at [facility]. . Length of Stay (Days): 2 GMLOS: No GMLOS Documented [facility] 03-15-2025 Nurse Note Wound Care consulted for Pressure Injury Prevention. Pt's Kee score= 14 on 03/13 Pt's pressure points assessed. Pt's Heels, Back, Elbows, Occiput and ears all intact. [place] and healed area noted to occiput. Pt moving lower extremities well in bed against gravity. Pt currently followed by Wound WIRED MUSIC OPERATOR group for wounds to left toes 1-4 and sacrum with wound vac in place. For left toes, sacrum, and sacral wound vac assessments and treatment plan, please see Wound/Ostomy WIRED MUSIC OPERATOR progress notes. Instructed pt on pressure injury prevention and importance of turning/postioning every 2hrs while in bed and every 15 min while sitting in chair. Instructed on use and care of waffle chair cushion. Verbalized understanding. Prevention Measures in place, including: [place] sheet with pillows/wedges, Heels elevated off bed on pillows, Zinc/Moisture Barrier ointment (obtained), Waffle chair cushion (obtained for pt). Skin Care precaution order set in place. Dietitian consult order placed d/t wounds. PT/OT consult in place. Will continue to follow pt. Please Vocera for any questions or concerns. Yari Pelletier RN [facility] 03-15-2025 Plan of care note Problem: Knowledge Deficit Goal: Patient/family/caregiver demonstrates understanding of disease process, treatment plan, medications, and discharge instructions Outcome: Progressing Problem: Problem Interventions Goal: Assess Nutritional Intake Outcome: Progressing [facility] 03-14-2025 Plan of care note Problem: Knowledge Deficit Goal: Patient/family/caregiver demonstrates understanding of disease process, treatment plan, medications, and discharge instructions Outcome: Progressing Problem: Potential for Compromised Skin Integrity Goal: Skin Integrity is Maintained or Improved Outcome: Progressing Goal: Nutritional status is improving Outcome: Progressing Problem: Urinary Incontinence Goal: Perineal skin integrity is maintained or improved Outcome: Progressing Problem: Problem Interventions Goal: Assess Nutritional Intake Outcome: Progressing [facility] 03-14-2025 Consult note Associated Order (s): IP CONSULT TO DIETITIAN Nutrition Assessment Type and Reason for Visit: Initial, Consult, Patient Education, Positive Nutrition Screen, Wound (HF edu, MST 2, ESRD on HD) Nutrition Recommendations/Plan: Pt meets ASPEN/AND criteria for malnutrition as indicated below Continue Adult diet Regular; Low Sodium (2 gm) Supplement(s): Added Chocolate Ensure Plus HP BID with meals (provides 350 kcals, 20 grams protein, 8 oz per serving) per MNT protocol Will continue to monitor labs, meds, po intakes and/or enteral nutrition tolerance, skin integrity, wt trends, and overall nutrition status - RD to follow weekly Malnutrition Assessment: Malnutrition Status: Moderate malnutrition Context: Acute Illness Findings of the 6 clinical characteristics of malnutrition: Energy Intake: Mild decrease in energy intake (Comment) (Dysgeusia (improved, nearly resolved per pt)) Weight Loss: Unable to assess (has had positive wt gain since January 2025, however he admitted w/ volume overload (met sev mal chronic at this time, s/p PEG -> has had PEG recently removed)) Body Fat Loss: Moderate body fat loss (moderate to severe) Buccal region, Fat Overlying Ribs, Triceps, Orbital Muscle Mass Loss: Moderate muscle mass loss (moderate to severe) Temples (temporalis), Clavicles (pectoralis & deltoids), Thigh (quadraceps), Calf (gastrocnemius) Fluid Accumulation: Mild Ascites (CT chest: mild interstitial pulmonary edema, small pleural effusions, new ascites and omental edema in upper abdomen.) Super[employer] Strength: Not Performed Chief Complaint Patient presents with Shortness of Breath Pt arrived from shelter via EMS. Pt was starting dialysis and feeling short of breath dialysis was stopped and sent to the hospital to be evaluated. Past Medical and Surgical History: Medical History[1] Surgical History[2] Nutrition Assessment: LOS# 2. +Nutrition screen (MST 2, wound), ESRD on HD (TTS schedule), RD c/s for HF diet education. 59M w/ ESRD on HD d/t IgA nephropathy who p/w fluid overload, SOB, and atrial flutter. Complex comorbidities include CAD s/p CABG, mechanical valve on warfarin (subtherapeutic INR), prior ICH, anemia, hypoalbuminemia, chronic wounds, and dry gangrene of LLE toes. S/p HD w/ aggressive UF for volume control, jaquan well (-1L net removed). Nephro to cont to eval HD adequacy and adjust EDW. Of note, recently had PEG tube removed 02/23/25. Tolerating diet. Wound vac to sacral stage IV PI. Gangrenous toes on first 4 toes on LLE. Hard chart indicates the pt was ordered a K+ controlled diet w/ regular textures and thin liquids. He was also ordered an 8oz juice ONS and 30 ml SF pro-stat BID. Pt is seen at bedside this afternoon. He is frail appearing w/ noticeable fat/muscle losses observed, especially in comparison w/ EPIC photo. BLE w/ more severe appearing wasting. He states his appetite is well, eating 3 meals a day. He does not recall receiving ONS at facility or able to provide much detail as far as how accepting he is of ONS. A bit distracted during my visit w/ frequent interruptions from cell phone going off in room. He states over the past few months he has had an altered sense of taste, says food - specifically meat had a "funky taste." Has hx of multiple intubations and complicated admissions. Dysgeusia has slowly improved over time, feels it is nearly resolved and has a positive improvement in po/appetite. He states his appetite is great, eating everything. Denies N/V/D/C abd pain, self feeding deficits, or mechanical difficulties w/ po. Discussed increased nutrition needs for wound healing, agrees to receive ensure ONS. Of note, pt previously met chronic severe malnutrition criteria per RD assessment 02/21/25. His wts have since improved w/ improvement/stabilization in nutrition acceptance and PEG removal, however he did come in w/ volume overload. CT chest: mild interstitial pulmonary edema, small pleural effusions, new ascites and omental edema in upper abdomen. Lowest wt was 114# in January 2025. CBW via SS 143#. Estimated Daily Nutrient Needs: Energy Requirements Based On: Kcal/kg Weight Used for Energy Requirements: [place] Weight for Energy Calculation (kg): 75 kg Total Energy Requirements (kcals/day): 3618-0155 (25-30 kcals/kg) Weight Used for Protein Requirements: [place] Weight in Kg Used for Protein Requirements: 75 kg Estimated Total Protein (g/day): 105-113 (1.4-1.5 g/kg) Estimated Daily Total Fluid (ml/day): 1 ml/kcal or per MD Nutrition Related Findings: Wound Type: Multiple, Wound Vac (per wound care: 1.) Sacrum: Stage 4 pressure injury 2.) Left toes 1-4: Arterial Ulcer (Unknown)) Isolation Status: No active isolations Food Allergies: NKFA Teeth: Missing teeth, Dentures upper, Dentures lower Room Service: Selective Kee Scale Score: 18 Peripheral Vascular (WDL): Exceptions to WDL Abdomen Inspection: Soft; Bowel Sounds (All Quadrants): Active Last BM Date: 03/13/25 GI symptoms: Dysgeusia (improved, nearly resolved per pt) Nutrition History: Independent of feeding and Currently at Rehab Level of Consciousness: Alert; Orientation Level: Oriented X4 Code Status, Oxygen Needs, Vital Signs, I/Os: Code Status: Full Code Oxygen Therapy: SpO2: 98 %; O2 Delivery Method: Nasal cannula; O2 Flow Rate (L/min): 4 L/min Vital Signs: Temp: 36.8 C (98.2 F); Heart Rate: 104; Resp: 16; BP: 124/64; MAP (mmHg): 111 Net IO Since Admission: 649 mL [03/15/25 1240] Intake/Output Summary (Last 24 hours) at 03/15/2025 1240 Last data filed at 03/15/2025 0630 Gross per 24 hour Intake 650 ml Output -- Net 650 ml Labs/Meds Reviewed: Scheduled Meds[3] Continuous Meds[4] BMP: Recent Labs 03/13/25 0945 03/14/25 0507 03/15/25 0434 NA 141 141 139 K 3.5 5.2* 4.5 CL 110* 102 100 CO2 25 28 28 BUN 41* 57* 30* CREATININE 3.32* 4.96* 3.13* GLUCOSE 71* 99 91 CALCIUM 7.3* 10.1 9.2 MG -- 2.2 2.0 HEPATIC: Recent Labs 03/13/25 0945 03/15/25 0434 AST 37* 49* ALT 7 14 BILITOT 0.5 0.8 ALKPHOS 122 201* CBC: Recent Labs 03/13/25 0902 03/15/25 0434 WBC 8.0 6.7 HGB 11.8* 8.5* 9.2* HCT 28.4* 30.1* MCV 99.3* 99.7* PLT 392 392 Lab Results Component Value Date EFBP 40 (A) 10/04/2024 Lab Results Component Value Date LDLCALC 109 (H) 03/14/2025 HDL 30 (L) 03/14/2025 CHOL 159 03/14/2025 TRIG 98 03/14/2025 Lab Results Component Value Date TSH 6.88 (H) 03/13/2025 FREET4 0.89 03/15/2025 [id number] 959 (H) 10/22/2019 FOLATE 9.2 10/22/2019 FERRITIN 2,701 (H) 11/22/2024 Current Nutrition Therapies: Adult diet Regular; Low Sodium (2 gm) Current Oral Intake Average Meal Intake: 76-100% Average Supplements Intake: None Ordered Anthropometric Measures: Height: 177.8 cm (5' 10") Current Body Weight: 66.7 kg (147 lb) Weight Source: Standing Scale Admission Body Weight: 67.1 kg (148 lb) (no method) Usual Body Weight: (mtr for updated dry wt - per nephro) [place] Body Weight (lbs) (Calculated): 166 lbs [place] Body Weight (Kg) (Calculated): 75 kg % [place] Body Weight (Calculated): 88.6 % BMI (kg/m2) (Calculated): 21.1 Weight Adjustment For: No Adjustment BMI Categories: Normal Weight (BMI 18.5-24.9) BMI (Calculated): 20.56 Weight: 65 kg (143 lb 4.8 oz) Weight Method: Bed scale Weight History: Wt Readings from Last 20 Encounters: 03/15/25 65 kg (143 lb 4.8 oz) 02/23/25 60.8 kg (134 lb) 02/14/25 59 kg (130 lb) 02/01/25 46.1 kg (101 lb 10.1 oz) 11/28/24 58.9 kg (129 lb 13.6 oz) 08/28/24 93.4 kg (206 lb) 11/12/23 94.3 kg (208 lb) 10/08/23 93.9 kg (207 lb) 08/17/23 90.7 kg (200 lb) 05/01/23 90.7 kg (200 lb) 08/07/22 90.7 kg (200 lb) 12/18/20 85.3 kg (188 lb) Nutrition Diagnosis: Increased nutrient needs related to increase demand for energy/nutrients as evidenced by wounds, dialysis (wound vac) Moderate malnutrition, In context of acute illness or injury related to altered taste perception, other (comment) (multifactorial) as evidenced by Criteria as identified in malnutrition assessment, other (comment), moderate loss of subcutaneous fat, severe muscle loss, localized or generalized fluid accumulation, severe loss of subcutaneous fat, moderate muscle loss (moderate to severe fat and muscle losses) Nutrition Interventions: Food and/or Nutrient Delivery: Continue Current Diet and Start Oral Nutrition Supplement Nutrition Education/Counseling: Education not appropriate Coordination of Nutrition Care: Continue to monitor while inpatient Plan of Care discussed with: Patient Goals: Goals: Meet at least 75% of estimated needs Nutrition Monitoring and Evaluation: Behavioral-Environmental Outcomes: None Identified Food/Nutrient Intake Outcomes: Food and Nutrient Intake, Supplement Intake Physical Signs/Symptoms Outcomes: Biochemical Data Discharge Planning: Too soon to determine Yasemin Ceron MS, RD, LD Contact: or Audiotoniq Chat (dial *[phone] from hospital phone) [1] Past Medical History: Diagnosis Date Acute renal failure (ARF) ([facility]) 10/19/2019 Anemia 12/30/2021 Calcification of abdominal aorta ([facility]) 10/08/202309/[address] abd Diverticulosis 10/08/2023 ESRD on hemodialysis ([facility]) ([facility]) 10/26/2019 Hemod[place] ([facility]) ([facility]) HTN (hypertension) 12/01/2022 Hypertension IgA nephropathy IgA nephropathy determined by biopsy of kidney 10/26/2019 Missed vaccination due to patient refusal 10/08/2023 Has a number of non-scientific based beliefs which interfere with his understanding and acceptance of the medical benefit of vaccination. Nonrheumatic aortic valve stenosis 10/08/2023 Paroxysmal A-fib ([facility]) ([facility]) 08/18/2023 Tobacco abuse 10/08/2023 [2] Past Surgical History: Procedure Laterality Date APPENDECTOMY CARDIAC CATHETERIZATION N/A 10/09/2024 Performed by Bob Watson MD at [facility] Cardiac Cath/EP Lab CARDIAC CATHETERIZATION Bilateral 11/01/2024 Performed by Bob Watson MD at [facility] Cardiac Cath/EP Lab CARDIAC CATHETERIZATION N/A 11/01/2024 Performed by Bob Watson MD at [facility] Cardiac Cath/EP Lab COLONOSCOPY N/A 01/24/2025 Performed by Chadd Davis MD at [facility] ENDOSCOPY FISTULAGRAM (HISTORICAL) Left 09/15/2021 LEFT UPPER ARM HX AV FISTULA CREATION IR EMBOLIZATION 10/14/2024 IR EMBOLIZATION 10/14/2024 [facility] SPECIAL PROCEDURES IR FISTULAGRAM 08/07/2022 IR FISTULAGRAM 08/07/2022 [facility] IR IMAGING TONSILLECTOMY (HISTORICAL) [3] Lidocaine, 1 patch, Topical, Daily metoprolol tartrate, 25 mg, Oral, q6h pantoprazole, 40 mg, Oral, BID AC sevelamer carbonate, 800 mg, Oral, TID WC sodium zirconium cyclosilicate, 5 g, Oral, Daily warfarin, 2.5 mg, Oral, Once [4] [facility] 03-14-2025 Hospital Discharg e steven Jones RN - 03/14/2025 2:19 PM EDT My Heart Failure Action Plan Use the below chart as a guide for daily symptom monitoring after you obtain your morning weight. My Medical Radiation Dosimetrist: Dr. Shah [facility]iology at [facility] [phone] My Packer Inspector: [facility] [address] [place] [address] My Diagnosis: Heart failure with improved ejection fraction complicated by end stage renal disease My Ejection Fraction: EF has been as low as 35-40% --> 60% in 02/2025 NORMAL 50-65% My Exercise Goal: as tolerated My Weight Goal: Standing weight day of hospital discharge Weigh yourself daily using the same scale. If you gain more than 3 pounds in 24 hours or 5 pounds in a week Call your Packer Inspector/Dialysis center!! My Diet Goal: General diet recommendations for heart failure patients are less than 2,000mg sodium and less than 2 liters of fluid per day. This will help with symptoms of fluid retention, such as swelling and shortness of breath. See provider orders for additional/alternative recommendations due to your kidney disease. Emergency Room Visits: Our goal is to improve your quality of life and help you avoid a visit to the emergency room or hospital. If we work together, we can achieve this goal. But, if you feel you need to call 911 or go to the emergency room, please do so. If you go to the emergency room, please bring your list of medicines and your daily weight chart with you. GREEN [place]ONE Doing well today Weight gained is no more than 3 pounds a day or 5 pounds a week. No swelling in feet, ankles, legs or stomach. No more swelling than usual. No more trouble breathing than usual. No change in my sleep. No other problems. Actions: I am doing fine. I will take my medicine, follow my diet, see my doctor, exercise, and watch for symptoms YELLOW ZONE Having a bad day or flare up Weight gained of more than 3 pounds in one day or 5 pounds in one week. New swelling in ankle, leg, knee, or thigh. Bloating in belly, pants feel tighter. Swelling in hands or face. Coughing or trouble breathing while walking or talking. Harder to breathe last night. Have trouble sleeping, wake up short of breath. Much more tired than usual. Not eating. Pain in my chest or bad leg cramps. Feel weak or dizzy. Signs and symptoms of Dehydration: dark and/or less urine, dry cracked mouth/skin, lethargic, lightheaded, dizzy, low blood pressure readings with high heart rate Actions: I need to take action and call my doctor or nurse today. RED ZONE NEED MEDICAL CARE NOW Weight gain of 5 pounds overnight. Chest pain or pressure that does not go away. Feel less alert. Wheezing or have trouble breathing when at rest. Cannot sleep lying down. Cannot take my water pill. Pass out or faint. ACTIONS I need to call my doctor or nurse now! Call 911 if I have chest pain or cannot breathe. Anu Castro MD - 03/21/2025 12:05 PM EDT As tolerated Anu Castro MD - 03/21/2025 12:05 PM EDT Resume usual diet Kaity Sepulveda RN - 03/21/2025 12:06 PM EDT Images from the original note were not included. Continuity of Care Form Patient Name: Jun Snyder : 1965 Admit date: 03/13/2025 Discharge date: Code Status Order: Full Code Advance Directives: Y Admitting Physician: Rubi Sanon MD PCP: Leilani Troncoso Discharging Nurse: Discharging Hospital Unit/Room#: [id number]/[id number] A Discharging Unit Phone Number: Emergency Contact: Extended Emergency Contact Information Primary Emergency Contact: Omar Snyder Mobile Relation: Child Secondary Emergency Contact: Toma Mcneil Mobile Relation: Partner Past Surgical History: Past Surgical History: Procedure Laterality Date APPENDECTOMY CARDIAC CATHETERIZATION N/A 10/09/2024 Performed by Bob Watson MD at [facility] Cardiac Cath/EP Lab CARDIAC CATHETERIZATION Bilateral 11/01/2024 Performed by Bob Watson MD at [facility] Cardiac Cath/EP Lab CARDIAC CATHETERIZATION N/A 11/01/2024 Performed by Bob Watson MD at [facility] Cardiac Cath/EP Lab COLONOSCOPY N/A 01/24/2025 Performed by Chadd Davis MD at [facility] ENDOSCOPY FISTULAGRAM (HISTORICAL) Left 09/15/2021 LEFT UPPER ARM HX AV FISTULA CREATION IR EMBOLIZATION 10/14/2024 IR EMBOLIZATION 10/14/2024 [facility] SPECIAL PROCEDURES IR FISTULAGRAM 08/07/2022 IR FISTULAGRAM 08/07/2022 [facility] IR IMAGING TONSILLECTOMY (HISTORICAL) Immunization History: Immunization History Administered Date(s) Administered Hep B, Unspecified 11/15/2019, 12/19/2019, 01/19/2020, 05/20/2020 Active Problems: Medical Problems Problem List * (Principal) SOB (shortness of breath) Paroxysmal A-fib (CMS/HCC) (HCC) HTN (hypertension) ESRD [...] (CMS/HCC) (HCC) Acute respiratory failure with hypoxia ([facility]) [J96.01] Tracheostomy care ([facility]) [Z43.0] 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 Complication of tracheostomy (CMS/HCC) (HCC) Hemoptysis Moderate malnutrition (CMS/HCC) (HCC) Anemia Aortic stenosis Upper GI bleed S/P AVR Acute hypoxic respiratory failure (HCC) Acute encephalopathy Pneumoperitoneum BRBPR (bright red blood per rectum) Isolation/Infection: No active isolations No active infections Nurse Assessment: Last Vital Signs: BP 147/86 (BP Location: Right arm, Patient Position: Lying) Pulse 72 Temp 36.3 C (97.4 F) (Temporal) Resp 18 Ht 5' 10" (1.778 m) Wt 155 lb (70.3 kg) SpO2 94% BMI 22.24 kg/m Last documented pain score (0-10 scale): Last Weight: Wt Readings from Last 1 Encounters: 03/21/25 155 lb (70.3 kg) Mental Status: {ROSENDO Patient Mental Status:00805} IV Access: {ROSENDO IV Access:18005} Nursing Mobility/ADLs: Walking {CHRISTY ADL:17005::"Independent"} Transfer {CHRISTY ADL:::"Independent"} Bathing {CHRISTY ADL:::"Independent"} Dressing {CHRISTY ADL:::"Independent"} Toileting {CHRISTY ADL:::"Independent"} Feeding {CHRISTY ADL:::"Independent"} Farm Agent {CHRISTY ADL:::"Independent"} Med Delivery {yes/no:28925} Wound Care Documentation and Therapy: Wound/Incision 11/13/24 Pressure Injury Sacrum (Active) Site Assessment Red;[place] 03/21/25 0402 Mahnaz-Wound Assessment [place] 03/13/251999 Drainage Description Sanguineous 03/13/25 2000 Odor Malodorous/putrid 03/13/25 2000 Drainage Amount Scant 03/21/25 0402 Treatments Cleansed;Site care 03/14/25 0555 Primary Dressing Wet-dry 03/20/25 0800 Secondary Dressing ABD 03/20/25 0800 Dressing Status Clean, dry & intact 03/21/25 0800 State of Healing Epithelialized 03/13/251999 Number of days: 127 Wound/Incision 11/15/24 Traumatic Arm Anterior;Left;Upper (Active) Number of days: 126 Wound/Incision 11/15/24 Other (comment) Toe - third Anterior;Left (Active) Site Assessment Black;Painful 03/21/25 0402 Mahnaz-Wound Assessment [place] 03/21/25 0402 Odor None 03/18/25 1500 Drainage Amount None 03/18/25 1500 Primary Dressing Open to air 03/21/25 0800 State of Healing Non-healing 03/13/251999 Number of days: 125 Wound/Incision 11/19/24 Traumatic Achilles Left (Active) Number of days: 121 Wound/Incision 11/19/24 Traumatic Heel Left (Active) Number of days: 121 Wound/Incision 01/28/25 Foot Left (Active) Number of days: 51 Wound/Incision Other (comment) Heel Left (Active) Number of days: Wound/Incision 03/14/25 Skin Tear Forearm Anterior;Right (Active) Treatments Cleansed 03/21/25 0402 Primary Dressing Open to air 03/21/25 0800 Dressing Status New dressing;Clean, dry & intact 03/21/25 0402 Number of days: 7 Elimination: Continence: Bowel: {yes/no:13734} Bladder: {yes/no:71075} Urinary Catheter: {ROSENDO Urinary Catheter:25093} Colostomy/Ileostomy/Ileal Conduit: {YES / NO:} Date of Last BM: Intake/Output Summary (Last 24 hours) at 03/21/2025 1206 Last data filed at 03/20/2025 1523 Gross per 24 hour Intake 300 ml Output -- Net 300 ml I/O last 3 completed shifts: In: 1338.9 (19 mL/kg) [P.O.:240; I.V.:1098.9 (15.6 mL/kg)] Out: - (0 mL/kg) Weight: 70.3 kg Safety Concerns: {ROSENDO Safety Concerns:59763} Impairments/Disabilities: {ROSENDO Impairments/Disabilities:98638} Nutrition Therapy: Current Nutrition Therapy: {ROSENDO Diet List:28704} Routes of Feeding: {routes of feedin} Liquids: {liquid consistency:49479} Daily Fluid Restriction: {daily fluid restriction:95028} Last Modified Barium Swallow with Video (Video Swallowing Test): {done not done:02031} Treatments at the Time of Hospital Discharge: Respiratory Treatments: Oxygen Therapy: {Therapy; copd oxygen:79540} Ventilator: {ROSENDO Ventilator:31584} Rehab Therapies: {GEN THERAPY DISCIPLINE SCAL:9547490} Weight Bearing Status/Restrictions: {POD WEIGHT BEARIN} Other Medical Equipment (for information only, NOT a DME order): {Assistive Devices DME:73524} Other Treatments: Patient's personal belongings (please select all that are sent with patient): {ROSENDO Patient Belongings:63638} RN SIGNATURE: {E-signature:84021} CASE MANAGEMENT/SOCIAL WORK SECTION Inpatient Status Date: 02-10-25 Discharging to Facility/ Agency Name: [facility] Address:[address] Fax: Dialysis Facility (if applicable) Name: Address: Dialysis Schedule: Phone: Fax: Laborer Syrup Machine/Ssrs Report Developer signature: ICIAN SECTION Name: Jun Snyder Prognosis: fair Condition at Discharge: stable Rehab Potential (if transferring to Rehab): fair Recommended Labs or Other Treatments After Discharge: none The individual is being admitted to a nursing facility directly from an [facility] or a unit of a [facility] that is not operated by or licensed by [facility] under section 5119.14 or 5160-3-15.1 5 The individual requires the level of services provided by a nursing facility for the condition for which he or she was treated in the hospital and, Physician Certification: I certify the above information and transfer of Jun Snyder is necessary for the continuing treatment of the diagnosis listed and that he requires 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 nursing care for greater than 30 days. Update Admission H&P: No change in H&P PHYSICIAN SIGNATURE: documented in this encounter [facility] 03-14-2025 Nurse Note Patient Name: Jun Snyder Patient : 1965 Acct: [id number] Date of Admission: 03/13/2025 Room[facility]Bed: [facility] A Code Status: Full Code [...] Time out performed prior to access at 1232. Report Received from Primary RN at 1112. Primary RN (First Initial, Last Name, Title): Matt BARNES RN Incapacitated Nurse Education Completed: gemma hutchison rn HBsAg ONLY: Date Drawn: February 24, 2025 Results: Negative HBsAb: Date Drawn: February 24, 2025 Results: Susceptible <10 Order Dialyzer: Nipro Na+ Modeling: Not Applicable Dialysate Temperature (C): 36 Blood Flow Rate (BFR): 450 Dialysate Flow Rate (DFR): 600 Access to [...] Condition/Temp Abdomen Inspection Bowel Sounds (All Quadrants) 03/14/25 1227 Responds to voice (1) Regular Nasal cannula Diminished Warm;Dry Soft Active 03/14/25 1537 Alert (0) Regular -- -- -- -- -- Labs Lab Results Component Value Date/Time WBC 8.0 03/13/2025 0902 HGB 8.5 (L) 03/13/2025 0902 HGB 11.8 (L) 03/13/2025 0902 HCT 28.4 (L) 03/13/2025 0902 PLT 392 03/13/2025 0902 NA 141 03/14/2025 0507 K 5.2 (H) 03/14/2025 0507 CL 102 03/14/2025 0507 CO2 28 03/14/2025 0507 BUN 57 (H) 03/14/2025 0507 CREATININE 4.96 (H) 03/14/2025 0507 CREATININE 9.99 (H) 10/27/2019 0545 CALCIUM 10.1 03/14/2025 0507 PHOS 2.6 02/23/2025 0032 IV Drips and Rate/Dose Continuous Meds[3] Safety - Before each treatment: Dialysis Machine No.: [id number] RO Machine Number: [id number] Dialyzer Lot No.: [id number] Tubing Lot Number: [id number] All Connections Secure: Yes Venous Parameters Set: Yes Arterial Parameters Set: Yes NS Bag: Yes Saline Line Double Clamped: Yes Dialyzer: Nipro Prime Volume (mL): 200 mL RO Machine Number: [id number] RO Machine Log Sheet Completed: Yes Machine Alarm Self Test: Completed, Passed (03/14/25 1135) Air Foam Detector: Tested, Proper Function, pH Reading Extracorporeal Circuit Tested for Integrity: Yes Machine Conductivity: 13.7 Manual Conductivity: 13.6 Manual Ph: 7 Bleach Test (Neg): Yes Bath Temperature: 36 C (96.8 F) Conductivity Meter Serial #: [id number] Machine Functioning Alarm Free? Yes Dialysis Bath: K+ (Potassium): 3 Ca+ (Calcium): 2.5 Na+ (Sodium): 135 HCO3 (Bicarb): 35 Chlorine Testing - Before each treatment and every 4 hours: Time On: 1237 Time Off: 1537 Treatment Goal: 1L Weight Height: 177.8 cm (5' 10") (03/13/25 1654) Weight: 66.8 kg (147 lb 3.2 oz) (03/14/25322) BMI (Calculated): 21.12 (03/14/25322) 1st check: less than 0.1 ppm at: 1145 2nd check: less than 0.1 ppm at: 1445 3rd check: Not Applicable (if greater than 0.1 ppm, then check every 30 minutes from secondary) Access Flows and Pressures Patient Vitals for the past 8 hrs: Blood Flow Rate (mL/min) Ultrafiltration Rate (ml/hr) Arterial Pressure (mmHg) Venous Pressure (mmHg) TMP DFR Access Visible Intra-Hemodialysis Comments 03/14/25 1227 -- -- -- -- -- -- Yes pt aware of call light within reach and educated on use of call light 03/14/25 1237 200 mL/min 500 ml/hr -20 mmHg 80 mmHg 60 600 Yes tx iniated lines secured pt stable 03/14/25 1239 450 mL/min 500 ml/hr -120 mmHg 220 mmHg 80 600 Yes bfr increased 03/14/25 1245 450 mL/min 500 ml/hr -130 mmHg 240 mmHg 70 600 Yes pt moving around, cuff readjusted, RN @ bedside, 74 uf removed 03/14/25 1300 450 mL/min 500 ml/hr -140 mmHg 240 mmHg 80 600 Yes pt resting lines secured call light within reach 187 uf removed 03/14/25 1315 450 mL/min 500 ml/hr -150 mmHg 240 mmHg 70 600 Yes pt stable 301 uf removed 03/14/25 1330 450 mL/min 500 ml/hr -150 mmHg 150 mmHg 70 600 Yes pt alert, removed 438 03/14/25 1345 450 mL/min 500 ml/hr -150 mmHg 240 mmHg 60 600 Yes pt moving around in bed, removed 564 03/14/25 1400 450 mL/min 500 ml/hr -150 mmHg 230 mmHg 70 600 Yes pt alert, removed 685 03/14/25 1415 450 mL/min 500 ml/hr -140 mmHg 240 mmHg 60 600 Yes pt resting 806 uf removed 03/14/25 1430 450 mL/min 500 ml/hr -150 mmHg 230 mmHg 60 600 Yes pt stable 930 uf removed 03/14/25 1445 450 mL/min 500 ml/hr -150 mmHg 230 mmHg 60 600 Yes pt alert, removed 1055 03/14/25 1500 450 mL/min 500 ml/hr -150 mmHg 220 mmHg 50 600 Yes pt resting, liness ecure, removed 1184 03/14/25 1515 450 mL/min 500 ml/hr -150 mmHg 220 mmHg 40 600 Yes pt alert, linesecure, removed 1299 03/14/25 1530 450 mL/min 500 ml/hr -150 mmHg 210 mmHg 40 600 Yes pt alert, lines secure removed 1415 03/14/25 1537 -- -- -- -- -- -- Yes tx complete pt stable 1500 uf removed Vital Signs Patient Vitals for the past 24 hrs: BP Temp Temp src Pulse Resp SpO2 Height Weight 03/14/25 1544 124/64 -- -- 104 -- -- -- -- 03/14/25 1537 121/71 36.8 C (98.2 F) -- 101 16 98 % -- -- 03/14/25 1530 132/77 -- -- 104 -- -- -- -- 03/14/25 1515 124/76 -- -- 104 -- -- -- -- 03/14/25 1500 131/80 -- -- 115 -- -- -- -- 03/14/25 1445 133/84 -- -- 116 -- -- -- -- 03/14/25 1430 133/70 -- -- 103 -- -- -- -- 03/14/25 1415 127/71 -- -- 104 -- -- -- -- 03/14/25 1400 134/74 -- -- 104 -- -- -- -- 03/14/25 1345 129/80 -- -- 112 -- -- -- -- 03/14/25 1330 149/83 -- -- 113 -- -- -- -- 03/14/25 1315 136/82 -- -- 100 -- -- -- -- 03/14/25 1300 145/84 -- -- 105 -- -- -- -- 03/14/25 1245 136/84 -- -- 106 -- -- -- -- 03/14/25 1239 147/85 -- -- 106 -- -- -- -- 03/14/25 1237 150/90 -- -- 105 -- -- -- -- 03/14/25 1227 153/90 37.1 C (98.7 F) -- 107 16 98 % -- -- 03/14/25 1109 144/94 36.7 C (98 F) Temporal (!) 121 16 100 % -- -- 03/14/25 0734 (!) 147/102 36.3 C (97.4 F) Temporal (!) 122 16 100 % -- -- 03/14/25 0323 -- -- -- -- -- -- -- 66.8 kg (147 lb 3.2 oz) 03/14/25 0315 139/91 36.4 C (97.5 F) Temporal 115 20 99 % -- -- 03/13/25 2311 146/93 36.5 C (97.7 F) Temporal 112 19 100 % -- -- 03/13/251999 -- -- -- 110 -- -- -- -- 03/13/25 1957 144/94 36.3 C (97.4 F) Temporal 114 19 100 % -- -- 03/13/25 1654 141/93 36.3 C (97.3 F) Temporal 115 16 97 % 1.778 m (5' 10") -- Post-Dialysis Arterial Catheter Locking Solution: Not Applicable Venous Catheter Locking Solution: Not Applicable Post-Treatment Procedures: Blood returned, Access bleeding time < 10 minutes Machine Disinfection Process: Exterior Machine Disinfection Rinseback Volume (mL): 300 mL Total Liters Processed (L/min): 76.1 L/min Dialyzer Clearance: Moderately streaked Hemodialysis Intake (ml): 500 ml Hemodialysis Output (ml): 1500 ml NET Removed (ml): 1000 ml Tolerated Treatment: Good Patient Response to Treatment: stable Physician Notified: No Patient Disposition: Return to room Charge: $ IP Hemodialysis Charge: Hemodialysis Provider Notification Provider Notification Reason for Communication: Other (Comment) (to inform patient arrival from [place] [facility] and need for orders) Provider Name: dr sanon Provider Role: Attending physician Method of Communication: Secure chat Response: At bedside Provider Role: Attending physician Method of Communication: Secure chat Response: At bedside Handoff complete and report given to Primary RN at 1549. Primary RN (First Initial, Last Name, Title): Matt BARNES RN Education Person Educated: Patient Knowledge Base: Substantial Barriers to Learning?: None Preferred method of Learning: Oral Topic(s): call light, Access Care, Signs and Symptoms of Infection, Fluid Management, and Procedural Teaching Tools: Explanation Response to Education: Verbalized Understanding [1] Allergies Allergen Reactions Lisinopril Swelling and Angioedema [2] Patient Active Problem List Diagnosis Anemia Paroxysmal A-fib ([facility]) ([facility]) HTN (hypertension) ESRD on hemodialysis ([facility]) ([facility]) IgA nephropathy determined by biopsy of kidney Diverticulosis Nonrheumatic aortic valve stenosis Calcification of abdominal aorta ([facility]) Missed vaccination due to patient refusal Tobacco abuse Alcohol use disorder in remission Atrial flutter, unspecified type ([facility]) RSV (acute bronchiolitis due to respiratory syncytial virus) Aortic stenosis Upper GI bleed S/P AVR Acute hypoxic respiratory failure ([facility]) Acute encephalopathy Pneumoperitoneum Gastric ulceration Severe malnutrition ([facility]) ([facility]) Pleural effusion Peritonitis due to fungus ([facility]) History of abdominal surgery Leg DVT (deep venous thromboembolism), acute, left ([facility]) 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, 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 of skin ([facility]) Tracheostomy dependence ([facility]) Leukocytosis Decubitus ulcer of sacral region, unstageable (HCC) Pneumonia of both lungs due to methicillin susceptible Staphylococcus aureus (MSSA) (HCC) Sacral osteomyelitis (CMS/HCC) (HCC) Acute respiratory failure with hypoxia (HCC) [J96.01] Tracheostomy care ([facility]) [Z43.0] 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 [facility] Consult Note Consults MELO Jun is a 59-year-old male with end-stage renal disease (ESRD) secondary to IgA nephropathy, currently on maintenance hemodialysis since 2019. His course has been complicated by cardiovascular comorbidities including coronary artery disease (status post CABG), paroxysmal atrial fibrillation, aortic stenosis (s/p mechanical valve replacement requiring anticoagulation), and a history of intracranial hemorrhage. He presents with fluid overload and shortness of breath, likely from volume accumulation due to suboptimal ultrafiltration, worsened by atrial flutter and recent Klebsiella pneumonia with lung abscess. His ESRD care is further complicated by hypoalbuminemia (1.5 g/dL), anemia (Hgb 8.5 g/dL), and dry gangrene of the left lower extremity toes, raising concern for critical limb ischemia and potential vascular compromise. He also has a chronic sacral wound with a wound VAC. The case underscores the complexity of managing ESRD in patients with multisystem comorbidities, anticoagulation challenges (subtherapeutic INR), and ongoing infection/inflammation, necessitating a multidisciplinary approach involving nephrology, cardiology, wound care, and vascular surgery. Medical History[1] Social History Socioeconomic History Marital status: Spouse name: Not on file Number of children: Not on file Years of education: Not on file Highest education level: Not on file Occupational History Not on file Tobacco Use Smoking status: Former Current packs/day: 1.00 Average packs/day: 1.4 packs/day for 31.3 years (45.2 ttl pk-yrs) Types: Cigarettes Start date: 1993 [...] Patient declined Food Insecurity: No Food Insecurity (03/13/2025) Hunger Vital Sign Worried About Running Out of Food in the Last Year: Never true Ran Out of Food in the Last Year: Never true Transportation Needs: No Transportation Needs (03/13/2025) PRAPARE - Transportation Lack of Transportation (Medical): No Lack of Transportation (Non-Medical): No Physical Activity: Inactive (02/21/2025) Exercise Vital Sign Days of Exercise per Week: 0 days Minutes of Exercise per Session: 0 min Stress: Stress Concern Present (02/21/2025) [employer] [facility] [employer] - Occupational Stress Questionnaire Feeling of Stress : To some extent Social Connections: Unknown (02/21/2025) Social Connection and Isolation Panel [NHANES] Frequency of Communication with Friends and Family: More than three times a week Frequency of Social Gatherings with Friends and Family: Patient declined Attends Rastafari Services: Patient declined Active Member of Clubs or Organizations: Patient declined Attends Club or Organization Meetings: Patient declined Marital Status: Patient declined Intimate Partner Violence: Not At Risk (03/13/2025) Humiliation, Afraid, Rape, and Kick questionnaire Fear of Current or Ex-Partner: No Emotionally Abused: No Physically Abused: No Sexually Abused: No Housing Stability: Low Risk (03/13/2025) Housing Stability Vital Sign Unable to Pay for Housing in the Last Year: No Number of Times Moved in the Last Year: 0 Homeless in the Last Year: No Family History[2] Current Medications[3] Scheduled medications Scheduled Meds[4] Continuous medications Continuous Meds[5] PRN medications PRN Meds[6] Review of systems as per HPI otherwise 10 point review systems negative BP (!) 147/102 (BP Location: Right arm, Patient Position: Lying) Pulse (!) 122 Temp 36.3 C (97.4 F) (Temporal) Resp 16 Ht 1.778 m (5' 10") Wt 66.8 kg (147 lb 3.2 oz) SpO2 100% BMI 21.12 kg/m Input / Output: 24 HR: Intake/Output Summary (Last 24 hours) at 03/14/2025 1043 Last data filed at 03/13/2025 2204 Gross per 24 hour Intake 0 ml Output 1 ml Net -1 ml Physical Exam Alert and oriented x 3, NAD EOMI OP clear Neck: supple, No JVD CV: RRR without m/r/g Lungs: CTA bilaterally Abd: soft NT/ND +BS Ext: no lower extremity edema Neuro: grossly intact Skin: no rashes Results from last 7 days Lab Units 03/14/25 0507 03/13/25 0945 SODIUM mmol/L 141 141 POTASSIUM mmol/L 5.2* 3.5 CHLORIDE mmol/L 102 110* CO2 mmol/L 28 25 BUN mg/dL 57* 41* CREATININE mg/dL 4.96* 3.32* GLUCOSE mg/dL 99 71* CALCIUM mg/dL 10.1 7.3* Results from last 7 days Lab Units 03/14/25 0507 03/13/25 0945 SODIUM mmol/L 141 141 POTASSIUM mmol/L 5.2* 3.5 CHLORIDE mmol/L 102 110* CO2 mmol/L 28 25 BUN mg/dL 57* 41* CREATININE mg/dL 4.96* 3.32* CALCIUM mg/dL 10.1 7.3* PROTEIN TOTAL g/dL -- 5.5* BILIRUBIN TOTAL mg/dL -- 0.5 ALK PHOS U/L -- 122 ALT U/L -- 7 AST U/L -- 37* GLUCOSE mg/dL 99 71* Results from last 7 days Lab Units 03/14/25 0507 MAGNESIUM mg/dL 2.2 Results from last 7 days Lab Units 03/13/25 0902 WBC AUTO 10*3/uL 8.0 HEMOGLOBIN g/dL 8.5* HEMOGLOBIN BG g/dl 11.8* HEMATOCRIT % 28.4* PLATELETS 10*3/uL 392 CT chest wo IV contrast Final Result 1. Congestive heart failure with mild interstitial pulmonary edema and small pleural effusions. 2. Mild thoracic lymphadenopathy, most likely reactive. 3. No acute lung consolidation. Multifocal areas of irregular pulmonary fibrosis are unchanged. 4. New ascites, omental edema and nodularity in the upper abdomen. Report Dictated on Electronically Signed By: Bettye Ribera MD Electronically Signed Date/Time: 03/13/2025 12:44 PM EDT XR chest 1 view Final Result 1. Limited supine study. 2. Cardiomegaly with probable pulmonary venous congestion. 3. Hyperinflated lungs with chronic, ill-defined opacities in both lungs which are most likely areas of fibrosis. No definite lung consolidation. Report Dictated on Electronically Signed By: Bettye Ribera MD Electronically Signed Date/Time: 03/13/2025 9:18 AM EDT Assessment: 59-year-old male with ESRD on hemodialysis due to IgA nephropathy, presenting with fluid overload, shortness of breath, and atrial flutter. Complex comorbidities include CAD s/p CABG, mechanical valve on warfarin (subtherapeutic INR), prior ICH, anemia, hypoalbuminemia, chronic wounds, and dry gangrene of LLE toes. Plan: Continue TTS HD with aggressive ultrafiltration for volume control. Monitor weights, BP, and fluid balance closely. Nephrology to evaluate dialysis adequacy and adjust dry weight. Monitor electrolytes, BUN/Cr, and albumin. Hold nephrotoxic agents; dose meds renally. Coordinate with cardiology for rate control and anticoagulation in atrial flutter. Vascular surgery and wound care consults for dry gangrene and sacral wound. Please message me through [employer] chat with any questions or concerns. Wellington Nicole MD 03/14/2025 10:43 AM [facility] [address] [place] [address], [address] [place] [address] Office: [phone] [1] Past Medical History: Diagnosis Date Acute renal failure (ARF) ([facility]) 10/19/2019 Anemia 12/30/2021 Calcification of abdominal aorta (HCC) 10/08/202309/[address] abd Diverticulosis 10/08/2023 ESRD on hemodialysis ([facility]) ([facility]) 10/26/2019 Hemodialysis patient ([facility]) ([facility]) HTN (hypertension) 12/01/2022 Hypertension IgA nephropathy IgA nephropathy determined by biopsy of kidney 10/26/2019 Missed vaccination due to patient refusal 10/08/2023 Has a number of non-scientific based beliefs which interfere with his understanding and acceptance of the medical benefit of vaccination. Nonrheumatic aortic valve stenosis 10/08/2023 Paroxysmal A-fib (CMS/HCC) (HCC) 08/18/2023 Tobacco abuse 10/08/2023 [2] Family History Problem Relation Name Age of Onset No Known Problems Mother No Known Problems Father [3] Current Facility-Administered Medications: acetaminophen (Tylenol) tablet 650 mg, 650 mg, Oral, q6h PRN OR acetaminophen (Tylenol) suppository 650 mg, 650 mg, Rectal, q6h PRN, Rubi Sanon MD ipratropium-albuterol (Duo-Neb) 0.5-2.5 mg/3 mL nebulizer solution 3 mL, 3 mL, Nebulization, q8h PRN, Rubi Sanon MD Lidocaine 4 % patch 1 patch, 1 patch, Topical, Daily, Rubi Sanon MD melatonin tablet 3 mg, 3 mg, Oral, Nightly PRN, Rubi Sanon MD metoprolol tartrate (Lopressor) tablet 25 mg, 25 mg, Oral, BID, Rubi Sanon MD, 25 mg at 03/14/25920 ondansetron ODT (Zofran-ODT) disintegrating tablet 4 mg, 4 mg, Oral, q8h PRN OR ondansetron (Zofran) injection 4 mg, 4 mg, IntraVENous, q6h PRN, Rubi Sanon MD pantoprazole (ProtoNix) EC tablet 40 mg, 40 mg, Oral, BID AC, Rubi Sanon MD, 40 mg at 03/14/25920 polyethylene glycol (PEG) 3350 (Miralax) packet 17 g, 17 g, Oral, Daily PRN, Rubi Sanon MD sevelamer carbonate (Renvela) tablet 800 mg, 800 mg, Oral, TID WC, Rubi Sanon MD, 800 mg at 03/13/251812 sodium zirconium cyclosilicate (Lokelma) packet 5 g, 5 g, Oral, Daily, Rubi Sanon MD [4] Lidocaine, 1 patch, Topical, Daily metoprolol tartrate, 25 mg, Oral, BID pantoprazole, 40 mg, Oral, BID AC sevelamer carbonate, 800 mg, Oral, TID WC sodium zirconium cyclosilicate, 5 g, Oral, Daily [5] [6] PRN medications: acetaminophen OR acetaminophen, ipratropium-albuterol, melatonin, ondansetron ODT OR ondansetron, polyethylene glycol (PEG) 3350 [facility] 03-14-2025 Note Formatting of this n ote might be different from the original. Care Management Progress Note Pt was sent to ER from dialysis due to shortness of breath. Needs PVR of BLE. Nephrology, Vascular and therapies are following. Wants to return to [facility]. Is a bed hold, but if they can skill him they would like to.. Length of Stay (Days): 1 GMLOS: No GMLOS Documented [facility] 03-14-2025 Note Formatting of this n ote might be different from the original. Care Management Progress Note Pt was sent to ER from dialysis due to shortness of breath. Needs PVR of BLE. Nephrology, Vascular and therapies are following. Wants to return to [facility]. Is a bed hold, but if they can skill him they would like to.. Length of Stay (Days): 1 GMLOS: No GMLOS Documented [facility] 03-14-2025 Consult note Associated Order (s): IP CONSULT TO CARDIOLOGY [facility] [place] [facility]Electrophysiology Consult Note Reason for Consult/Chief Complaint: Volume overload, afib rvr Referring provider: Dr Kidd Established ortho tech: Dr Shah History of Present Illness: Jun Snyder is a 59 y.o. male with a medical history of ESRD on dialysis, HFimpEF, his EF has been documented as low as 30 to 40% in the past however his most recent EF on 02/20/2025 was around 60%. He does have a history of reduced RV function.. He has a history of IgA nephropathy, mechanical SAVR 23 mm [place] mechanical valve, without PVI/maze or ANNE L. He also has a history of persistent atrial flutter/atrial tachycardia. He was last seen by electrophysiology on .5 for persistent a flutter and A. tach, started on amiodarone and he had a YG cardioversion at that time, per chart review he has been in and out of a flutter, however his most recent EKG on 02/25/2025 showed sinus rhythm.. Of note his surgical course was very complicated, [facility]. [facility] was at [facility] for Klebsiella pneumonia, hemoptysis and lung abscess He presented to the ED with chief complaint of worsening shortness of breath at dialysis. His last dialysis session was on 03/08, he has missed 2 dialysis sessions prior to presenting. NT proBNP was elevated at 30,000 however prior was also greater than 30,000. His imaging shows evidence of pulmonary venous congestion. CT chest does not show any acute lung consolidation, but does continue to show multifocal areas of irregular pulmonary fibrosis, mild interstitial pulmonary edema small pleural effusions as well as new ascites and omental edema and nodularity in upper abdomen. She EKG demonstrates a flutter with rates 112, his telemetry demonstrates afib/flutter rates 110-130. Assessment/Plan HF NYHA Class [] I [] II [x] III [] IV []Unable to assess Volume overload ESRD on dialysis Discussed with nephrology, patient will dialyze today with plans for aggressive ultrafiltration for volume control Atrial flutter Atrial fibrillation Patient has had cardioversion in the past, initially it was unsuccessful however EKGs demonstrate that patient has been in sinus rhythm since his cardioversion. On most recent hospital admission prior to this 1 patient was in normal sinus rhythm. His rates are not well-controlled currently and this certainly could be in the setting of volume overload, missed dialysis For now we will attempt optimal rate control strategy, will increase metoprolol to 3 times daily for now and tolerating well and rate still not well-controlled can increase to every 6 hours No current plans for cardioversion, we will attempt a rate control strategy first however if he remains in A-fib/flutter with elevated rates he is still symptomatic, we may have to consider repeat cardioversion We will continue to follow Severe aortic stenosis status post SAVR with mechanical aortic valve 23 mm [place] mechanical valve Continue Coumadin - goal INR 2-3 Managed by pharmacy/[facility] Medications: Scheduled Meds[1] Infusion Medications: Continuous Meds[2] Physical Examination: Vitals: 03/13/25 2311 03/14/25 0315 03/14/25 0323 03/14/25 0734 BP: 146/93 139/91 (!) 147/102 BP Location: Right arm Right arm Right arm Patient Position: Lying Sitting Lying Pulse: 112 115 (!) 122 Resp: 19 20 16 Temp: 36.5 C (97.7 F) 36.4 C (97.5 F) 36.3 C (97.4 F) TempSrc: Temporal Temporal Temporal SpO2: 100% 99% 100% Weight: 147 lb 3.2 oz (66.8 kg) Height: Intake/Output Summary (Last 24 hours) at 03/14/2025 0912 Last data filed at 03/13/2025 2204 Gross per 24 hour Intake 0 ml Output 1 ml Net -1 ml Wt Readings from Last 3 Encounters: 03/14/25 147 lb 3.2 oz (66.8 kg) 02/23/25 134 lb (60.8 kg) 02/14/25 130 lb (59 kg) Physical Exam Constitutional: no distress. well nourished. well hydrated Psychiatric: A &O x 3. Medical insight ok NMT: Oral mucosa is pink and moist Neck: elevated JVD. Respiratory: Lungs are with rales, congested Cardiac exam: Rhythm: irregular ; Normal S1 and S2 Murmur: no Other: No rub; no gallop Vasc: Peripheral pulses intact Abdomen: soft Extremities: no LE edema Skin: Warm to touch and well perfused Laboratory Tests: TROPONIN I, CONVENTIONAL SENSITIVITY CK Date Value Ref Range Status 10/21/2024 51 30 - 185 U/L Final 10/14/2024 137 30 - 185 U/L Final TROPONIN I Date Value Ref Range Status 08/17/2023 0.094 (H) <0.034 ng/mL Final 08/16/2023 0.062 (H) <0.034 ng/mL Final 08/16/2023 0.037 (H) <0.034 ng/mL Final 10/19/2019 0.075 (H) 0.000 - 0.034 ng/mL Final Comment: . TROPONIN I, HIGH SENSITIVITY Troponin HS Serial Baseline Date Value Ref Range Status 03/13/2025 39 (H) <=35 ng/L Final Comment: In individuals presenting with symptoms > 2h, a baseline troponin <= 5 ng/L suggests acute cardiac injury is unlikely and further serial testing is generally not indicated. 02/25/2025 84 (H) <=35 ng/L Final Comment: In individuals presenting with symptoms > 2h, a baseline troponin <= 5 ng/L suggests acute cardiac injury is unlikely and further serial testing is generally not indicated. 01/19/2025 99 (H) <=35 ng/L Final Comment: In individuals presenting with symptoms > 2h, a baseline troponin <= 5 ng/L suggests acute cardiac injury is unlikely and further serial testing is generally not indicated. 10/06/2024 3,402 (HH) <=35 ng/L Final 10/03/2024 557 (HH) <=35 ng/L Final 2h Troponin HS (Serial 2nd Troponin) Date Value Ref Range Status 03/13/2025 44 (H) <=35 ng/L Final Comment: 2h troponin (2nd troponin) samples collected between 1h 40 min and 2h and 20 min of the baseline collection time can be utilized to interpret delta troponins as per [employer] algorithms. Samples collected outside this timeframe need to be interpreted clinically. Rising or falling troponin delta between 2 - 15 ng/L as compared to baseline value requires a 3rd serial troponin 02/26/2025 80 (H) <=35 ng/L Final Comment: 2h troponin (2nd troponin) samples collected between 1h 40 min and 2h and 20 min of the baseline collection time can be utilized to interpret delta troponins as per [employer] algorithms. Samples collected outside this timeframe need to be interpreted clinically. Rising or falling troponin delta between 2 - 15 ng/L as compared to baseline value requires a 3rd serial troponin 01/19/2025 106 (H) <=35 ng/L Final Comment: 2h troponin (2nd troponin) samples collected between 1h 40 min and 2h and 20 min of the baseline collection time can be utilized to interpret delta troponins as per [employer] algorithms. Samples collected outside this timeframe need to be interpreted clinically. Rising or falling troponin delta between 2 - 15 ng/L as compared to baseline value requires a 3rd serial troponin 10/06/2024 3,138 (HH) <=35 ng/L Final 10/03/2024 653 (HH) <=35 ng/L Final Absolute Delta (2nd - Baseline Troponin) Date Value Ref Range Status 10/06/2024 -264 <=2 ng/L Final Comment: A troponin delta greater than or equal to 15 ng/L is significant for acute cardiac injury. Values less than 15 but greater than 2 are an 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 change requiring a 3rd serial troponin to be drawn. Values less than or equal to 2 indicate acute cardiac injury is not likely, see external algorithms for further clinical guidance. 10/03/2024 96 <=2 ng/L Final Comment: A troponin delta greater than or equal to 15 ng/L is significant for acute cardiac injury. Values less than 15 but greater than 2 are an 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 change requiring a 3rd serial troponin to be drawn. Values less than or equal to 2 indicate acute cardiac injury is not likely, see external algorithms for further clinical guidance. 4h Troponin HS (Serial 3rd Troponin) Date Value Ref Range Status 03/13/2025 50 (H) <=35 ng/L Final Comment: 4h troponin (3rd troponin) samples collected between 1h 40 min and 2h and 20 min of the 2h troponin collection time can be utilized to interpret delta troponins as per [employer] algorithms. Samples collected outside this timeframe need to be interpreted clinically. Rising or falling troponin delta between 2 - 15 ng/L as compared to 2h troponin value requires further evaluation. 02/26/2025 75 (H) <=35 ng/L Final Comment: 4h troponin (3rd troponin) samples collected between 1h 40 min and 2h and 20 min of the 2h troponin collection time can be utilized to interpret delta troponins as per [employer] algorithms. Samples collected outside this timeframe need to be interpreted clinically. Rising or falling troponin delta between 2 - 15 ng/L as compared to 2h troponin value requires further evaluation. 01/19/2025 94 (H) <=35 ng/L Final Comment: 4h troponin (3rd troponin) samples collected between 1h 40 min and 2h and 20 min of the 2h troponin collection time can be utilized to interpret delta troponins as per [employer] algorithms. Samples collected outside this timeframe need to be interpreted clinically. Rising or falling troponin delta between 2 - 15 ng/L as compared to 2h troponin value requires further evaluation. No results found for: TROPDELTSEC Recent Labs 03/13/25 0945 03/14/25 0507 NA 141 141 K 3.5 5.2* CL 110* 102 CO2 25 28 BUN 41* 57* CREATININE 3.32* 4.96* EGFR 20.5* 12.7* Recent Labs 03/13/25 0902 WBC 8.0 HGB 11.8* 8.5* HCT 28.4* MCV 99.3* PLT 392 No results found for: "HGBA1C" Lab Results Component Value Date TSH 6.88 (H) 03/13/2025 Lab Results Component Value Date CHOL 159 03/14/2025 Lab Results Component Value Date HDL 30 (L) 03/14/2025 Lab Results Component Value Date LDLCALC 109 (H) 03/14/2025 Lab Results Component Value Date TRIG 98 03/14/2025 TRIG 99 10/14/2024 No results found for: "CHOLHDL" No results found for: LDLCHOLESTER Recent Labs 03/13/25 1729 BNP >30,000* Recent Labs 03/13/25 0902 INR 1.7* Results from last 7 days Lab Units 03/13/25 0945 AST U/L 37* ALT U/L 7 Lab Results Component Value Date IRON 32 (L) 11/22/2024 TIBC 114 (L) 11/22/2024 FERRITIN 2,701 (H) 11/22/2024 Radiology: CXR: personally reviewed: Cardiac Tests Personally Reviewed: Last EKG 03/13/25 ECG 12-LEAD (Preliminary) This result has not been signed. Information might be incomplete. Impression Atrial flutter IVCD, consider RBBB Probable lateral infarct, age indeterminate Anteroseptal infarct, age indeterminate Telemetry findings: Aflutter , coarse fib? Rates 110-130 Reports reviewed: Last Echo 02/20/25 TRANSTHORACIC ECHOCARDIOGRAM (TTE) COMPLETE (CONTRAST/BUBBLE/3D PRN) 02/23/2025 2:45 PM (Final) Interpretation Summary Left Ventricle: Left ventricle size is normal. Moderately increased wall thickness. Normal left ventricular systolic function. The EF by visual approximation is 60%. Normal wall motion. Right Ventricle: Right ventricle is moderately dilated. Moderately reduced systolic function. Aortic Valve: [place] mechanical aortic valve with a size of 23 mm. AV mean gradient is 10 mmHg. No cusp thickening. No cusp calcification. No regurgitation. Mitral Valve: Mild stenosis noted. MV mean gradient is 7 mmHg. Tricuspid Valve: Moderately severe (3+) regurgitation. RVSP is 57 mmHg. Left Atrium: Left atrium is mildly dilated. Right Atrium: Right atrium is severely dilated. Addendum by: Daryn Chowdary MD on 02/26/2025 8:39 AM Signed by: Daryn Chowdary MD on 02/23/2025 2:45 PM Last Cath 10/03/24 CARDIAC PROCEDURE 11/01/2024 10:59 AM (Final) Conclusion No evidence of pulmonary embolism in the right or left pulmonary artery. Severe pulmonary hypertension (79/38 mmHg, mean: 52 mmHg). Fluoroscopy of the mechanical aortic valve in multiple projections demonstrates complete opening of both leaflets without restriction, complete closure, no rocking of valve ring. Signed by: Bob Watson MD on 11/01/2024 10:59 AM Last Stress Test No results found for this or any previous visit. Last EP study No results found for this or any previous visit. EF BP Date Value Ref Range Status 10/04/2024 40 (A) 55 - 100 % Final Ash Henry DO DATE of SERVICE: 03/14/2025 [1] Lidocaine, 1 patch, Topical, Daily metoprolol tartrate, 25 mg, Oral, BID pantoprazole, 40 mg, Oral, BID AC sevelamer carbonate, 800 mg, Oral, TID WC sodium zirconium cyclosilicate, 5 g, Oral, Daily [2] Cosigned by Ruy Ennis MD at 03/14/2025 3:28 PM EDT Associated attestation - Ruy Ennis MD - 03/14/2025 3:28 PM EDT I, Dr. Ruy Ennis, saw and evaluated the patient on 03/14/2025. I personally obtained the francis and critical portions of the history and physical exam. I reviewed the chart, the fellow's documentation, and discussed the patient with the fellow. I agree with the fellow's medical decision making and have edited the note to reflect my clinical findings and my assessment and plan. In summary, Jun Snyder is a 59 yo M who is in a-flutter -- he has had difficult to control rhythm. Has failed DCCV/amio in the past -- but was in NSR in early February 2025. On HD for ESRD - Coumadin for mechanical AVR - He is back in a-flutter -- will attempt rate control -- can re-engage with EP if needed, but with his RVF and co-morbidities hopefully rate control will work to keep him asymptomatic from that perspective Heart Failure will follow up Ruy Ennis MD Department of Cardiovascular Disease, Division of Heart Failure [facility] 3:25 PM 03/14/25 [facility] Work Phone: 03-14-2025 Consult note Associated Order (s): INPATIENT CONSULT TO WOUND CARE PROVIDERS Images from the original note were not included. [facility] Wound VAC CONSULT Note Jun Snyder AGE: 59 y.o. GENDER: male : 1965 Subjective: HISTORY of PRESENT ILLNESS HPI Jun Snyder is a 59 y.o. male who presents for a wound consult and NPWT application. HPI: Patient is a 59 y.o. male with past medical history of hypertension, IgA nephropathy, ESRD on HD, CAD, history of CABG, history of intracranial bleed, paroxysmal A-fib aortic stenosis, s/p mechanical valve replacement recent admission here from 02/20-03/05 for hemoptysis due to Klebsiella pneumonia with lung abscess. He went to dialysis today, but was sent to ED due to worsening shortness of breath. Wound Care consulted for wound vac and left toes Patient resting in bed. Denies any needs. Wound vac applied with patient tolerating well. PAST MEDICAL HISTORY Medical History[1] PAST SURGICAL HISTORY Surgical History[2] FAMILY HISTORY Family History[3] SOCIAL HISTORY Social History[4] ALLERGIES Allergies[5] MEDICATIONS Medications Ordered Prior to Encounter[6] REVIEW OF SYSTEMS Pertinent items are noted in HPI. Objective: BP 147/85 Pulse 106 Temp 37.1 C (98.7 F) Resp 16 Ht 1.778 m (5' 10") Wt 66.8 kg (147 lb 3.2 oz) SpO2 98% BMI 21.12 kg/m PHYSICAL EXAM General appearance: in no apparent distress, well developed and well nourished, and non-toxic Skin: warm and dry Pulmonary: Normal effort, no respiratory distress, no cyanosis Left toes 1-4: Necrotic tissue. No open wounds. No drainage present. Odor noted. 03/14/25 Sacrum: Focused assessment on wound VAC dressing change. Wet to dry dressing removed from wound with saline without any difficulties. Small amount of serosang drainage noted from wound. No purulence, bleeding or odor. All wounds and periwounds cleansed with saline, patted dry and cavilon no sting applied to periwound. Patient's stage 4 pressure injury wound measuring 7x7.5x0.8 cm with undermining from 9-4 @ 0.8cm. Wound bed with pink tissue. Applied 1 piece of black foam. non-disposable) Wound VAC well sealed at 125 mmHg continuous suction. 03/14/25 LABS CBC: Lab Results Component Value Date WBC 8.0 03/13/2025 HGB 8.5 (L) 03/13/2025 HGB 11.8 (L) 03/13/2025 HCT 28.4 (L) 03/13/2025 MCV 99.3 (H) 03/13/2025 PLT 392 03/13/2025 BMP: Lab Results Component Value Date NA 141 03/14/2025 K 5.2 (H) 03/14/2025 CL 102 03/14/2025 CO2 28 03/14/2025 BUN 57 (H) 03/14/2025 CREATININE 4.96 (H) 03/14/2025 PT/INR: Lab Results Component Value Date PROTIME 17.7 (H) 03/13/2025 INR 1.7 (H) 03/13/2025 Prealbumin: No results found for: "PREALBUMIN" Albumin:No components found for: LABALBU Sed Rate:No results found for: SEDRATE Micro: No components found for: BC Assessment/Plan: Sacrum: Stage 4 pressure injury - Clean with NS, apply NPWT. Place black foam to wound bed at 125mmHg continuous, change 3 times a week and PRN - Change cannister once a week or when full. - If suction fails: - remove vac dressing - cleanse wound with normal saline - pack wound with saline moistened gauze and change every 12 hours or at discharge. Nursing staff to perform dressing change: Left toes 1-4: Arterial Ulcer (Unknown) - Cleanse with NS, apply Betadine and allow to dry, leave TISHA daily and PRN Nutritional support Wound Care to follow Recommend to follow up at [facility] wound care center after hospital discharge. Any [...] my own independent evaluation of this patient. VAC applied by Jesus Lacy RN [1] Past Medical History: Diagnosis Date Acute renal failure (ARF) ([facility]) 10/19/2019 Anemia 12/30/2021 Calcification of abdominal aorta ([facility]) 10/08/202309/[address] abd Diverticulosis 10/08/2023 ESRD on hemodialysis ([facility]) ([facility]) 10/26/2019 Hemodialysis patient ([facility]) ([facility]) HTN (hypertension) 12/01/2022 Hypertension IgA nephropathy IgA nephropathy determined by biopsy of kidney 10/26/2019 Missed vaccination due to patient refusal 10/08/2023 Has a number of non-scientific based beliefs which interfere with his understanding and acceptance of the medical benefit of vaccination. Nonrheumatic aortic valve stenosis 10/08/2023 Paroxysmal A-fib (CMS/HCC) ([facility]) 08/18/2023 Tobacco abuse 10/08/2023 [2] Past Surgical History: Procedure Laterality Date APPENDECTOMY CARDIAC CATHETERIZATION N/A 10/09/2024 Performed by Bob Watson MD at [facility] Cardiac Cath/EP Lab CARDIAC CATHETERIZATION Bilateral 11/01/2024 Performed by Bob Watson MD at [facility] Cardiac Cath/EP Lab CARDIAC CATHETERIZATION N/A 11/01/2024 Performed by Bob Watson MD at [facility] Cardiac Cath/EP Lab COLONOSCOPY N/A 01/24/2025 Performed by Chadd Davis MD at [facility] ENDOSCOPY FISTULAGRAM (HISTORICAL) Left 09/15/2021 LEFT UPPER ARM HX AV FISTULA CREATION IR EMBOLIZATION 10/14/2024 IR EMBOLIZATION 10/14/2024 [facility] SPECIAL PROCEDURES IR FISTULAGRAM 08/07/2022 IR FISTULAGRAM 08/07/2022 [facility] IR IMAGING TONSILLECTOMY (HISTORICAL) [3] Family History Problem Relation Name Age of Onset No Known Problems Mother No Known Problems Father [4] Social History Tobacco Use Smoking status: Former Current packs/day: 1.00 Average packs/day: 1.4 packs/day for 31.3 years (45.2 ttl pk-yrs) Types: Cigarettes Start date: 1993 [...] Prior to Encounter Medication Sig Dispense Refill ipratropium-albuterol (Duo-Neb) 0.5-2.5 mg/3 mL nebulizer solution Take 3 mL by nebulization every 8 hours as needed for shortness of breath. Lidocaine 4 % patch Apply 1 patch topically daily. melatonin 3 MG tablet Take 1 tablet (3 mg) by mouth Nightly as needed for sleep. metoprolol tartrate (Lopressor) 25 MG tablet Take 1 tablet (25 mg) by mouth 2 times daily. 60 tablet 11 pantoprazole (ProtoNix) 40 MG EC tablet Take 1 tablet (40 mg) by mouth 2 times daily (before meals). Do not crush, chew, or split. 60 tablet 11 sevelamer carbonate (Renvela) 800 MG tablet Take 1 tablet (800 mg) by mouth 3 times daily (with meals). Swallow tablet whole; do not crush, break, or chew. 90 tablet 11 sodium zirconium cyclosilicate (Lokelma) 5 g packet Take 5 g by mouth daily. warfarin (Coumadin) 1 MG tablet Take as directed per After Visit Summary. acetaminophen (Tylenol) 325 MG tablet Take 650 mg by mouth every 6 hours as needed for mild pain (1-3), fever or moderate pain (4-6). (Patient not taking: Reported on 03/13/2025) amoxicillin-clavulanate (Augmentin) 500-125 MG tablet Take 1 tablet (500 mg) by mouth daily with supper. Augmentin 500mg q24 (to be taken after HD on HD days) until 03/10/25 (Patient not taking: Reported on 03/13/2025) B complex-vitamin C-folic acid (Nephro-Nato Rx) 1 MG tablet Take 1 tablet by mouth daily. (Patient not taking: Reported on 03/13/2025) bisacodyl (Dulcolax) 10 MG suppository Insert 10 mg into the rectum Daily as needed for constipation. (Patient not taking: Reported on 03/13/2025) bisacodyl (Dulcolax) 5 MG EC tablet Take 5 mg by mouth Daily as needed for constipation. Do not crush, chew, or split. (Patient not taking: Reported on 03/13/2025) magnesium hydroxide (Milk of Magnesia) 800 MG/5ML suspension Take 30 mL by mouth Daily as needed for constipation (if no bm in 3 days). (Patient not taking: Reported on 03/13/2025) naloxone in sodium chloride (PF) injection injection Inject 0.04 mg into the shoulder, thigh, or buttocks as needed for opioid reversal or respiratory depression. QUEtiapine (SEROquel) 25 MG tablet Take 1 tablet (25 mg) by mouth Nightly. (Patient not taking: Reported on 03/13/2025) 30 tablet 0 Cosigned by Ahsan Gill DO at 03/19/2025 4:44 PM EDT [facility] 03-14-2025 Note Formatting of this n ote might be different from the original. Referral placed to [facility] via [facility] per TCC request. Await review and response regarding ability to accept. TCC notified. Electronically signed by [facility] Sabino Rodrigues T [facility] 03-14-2025 Note Formatting of this n ote might be different from the original. Referral placed to [facility] via [facility] per TCC request. Await review and response regarding ability to accept. TCC notified. Electronically signed by [facility] Sabino Rodrigues [facility] 03-14-2025 Note Referral placed to [facility] via [facility] per TCC request. Await review and response regarding ability to accept. TCC notified. Electronically signed by [facility] Plan of care note Problem: Knowledge Deficit Goal: Patient/family/caregiver demonstrates understanding of disease process, treatment plan, medications, and discharge instructions Outcome: Progressing Problem: Potential for Compromised Skin Integrity Goal: Skin Integrity is Maintained or Improved Outcome: Progressing T [facility] 03-13-2025 Nurse Note Removed wound vac that patient arrived to 5w from f pictures of all wound taken on rover and saved to chart NSWto DSD applied to sacral wound T [facility] 03-13-2025 History and physical note [facility] Attending History and Physical Admit Date: 03/13/2025 PCP: Leilani Troncoso CHIEF COMPLAINT: History Obtained From: patient,EMR HISTORY OF PRESENT ILLNESS: Jun is a 59 y.o. male with past medical history of hypertension, IgA nephropathy, ESRD on HD, CAD, history of CABG, history of intracranial bleed, paroxysmal A-fib aortic stenosis, s/p mechanical valve replacement recent admission here from 02/20-03/05 for hemoptysis due to Klebsiella pneumonia with lung abscess presented to [facility] ED with worsening shortness of breath. He went to dialysis today, but was sent to ED due to worsening shortness of breath. Denies fever,chills,cough,chestpain, dizziness, abdominal pain, nausea, vomitting,constipation or diarrhea Work up in the ED Afebrile, blood pressure 146/94, tachycardic with heart rate ranging from 110s to 120s, was placed on 2 L of oxygen oxygen saturation 98% on 2 L CBC-hemoglobin of 8.5 close to baseline BMP-BUN of 41 creatinine of 3.32, potassium of 3.5 albumin of 1.5 Troponins-elevated at 39 likely due to ESRD EKG-atrial flutter CXR-cardiomegaly with pulmonary venous congestion CT chest revealed congestive heart failure with mild interstitial pulmonary edema, small pleural effusion. No acute lung consolidation. Multifocal areas of irregular pulmonary fibrosis. New ascites, omental edema and nodularity in upper abdomen He was transferred from [facility] to [facility] due to bed availability Past Medical History: Medical History[1] Past Surgical History: Surgical History[2] Social History: Social History Socioeconomic History Marital status: Spouse name: Not on file Number of children: Not on file Years of education: Not on file Highest education level: Not on file Occupational History Not on file Tobacco Use Smoking status: Former Current packs/day: 1.00 Average packs/day: 1.4 packs/day for 31.3 years (45.2 ttl pk-yrs) Types: Cigarettes Start date: 1993 [...] 0 min Stress: Stress Concern Present (02/21/2025) [place] [employer] - Occupational Stress Questionnaire Feeling of Stress : To some extent Social Connections: Unknown (02/21/2025) Social Connection and Isolation Panel [NHANES] Frequency of Communication with Friends and Family: More than three times a week Frequency of Social Gatherings with Friends and Family: Patient declined Attends Rastafari Services: Patient declined Active Member of Clubs [...] the Last Year: No Family History: Family History[3] Medications Prior to Admission: Current Medications[4] Medication list reviewed Allergies: Allergies[5] REVIEW OF SYSTEMS: Other than Patient's chronic conditions and those complaints in the history above, the rest of the 10 systems review were done and were negative. Positive finding as documented in HPI Vitals: BP 141/93 Pulse 115 Temp 36.3 C (97.3 F) (Temporal) Resp 16 Ht 5' 10" (1.778 m) Wt 148 lb (67.1 kg) SpO2 97% BMI 21.24 kg/m BMI Classification: Normal Weight (BMI 18.5-24.9) Pulse Ox: SpO2 Av.8 % Min: 95 % Max: 100 % Supplemental O2: O2 Flow Rate (L/min): 3 L/min PHYSICAL EXAM: General appearance: No apparent distress, awake, alert oriented x 4 HEENT: Eyes: No scleral icterus,no pallor Oral: Tongue is semi-moist Cardiovascular: S1/S2 heard, irregularly irregular Respiratory: Decreased breath sounds bilaterally fine rales at bilateral lung bases Abdomen: Soft, non-tender, non-distended bowel sounds positive,no mass palpable Extremity: No pitting edema Skin: Sacral wound with wound VAC, gangrenous toes noted on first 4 toes on left lower extremity DATA: BC: Recent Labs 03/13/25 0902 WBC 8.0 RBC 2.86* HGB 11.8* 8.5* HCT 28.4* MCV 99.3* RDW 21.2* PLT 392 BMP: Recent Labs 03/13/25 0945 NA 141 K 3.5 CL 110* CO2 25 BUN 41* CREATININE 3.32* GLUCOSE 71* CALCIUM 7.3* ANIONGAP 6 LIVER PROFILE: Recent Labs 03/13/25 0945 AST 37* ALT 7 BILITOT 0.5 ALKPHOS 122 PROT 5.5* PT/INR: Recent Labs 03/13/25 0902 PROTIME 17.7* INR 1.7* CARDIAC ENZYMES: No results for input(s): "TROPONINI" in the last 72 hours. Procalcitonin: No results found for: "PROCAL" Urine Culture: No results found for this or any previous visit. COVID-19 PCR: No results for input(s): "COVID19" in the last 72 hours. I reviewed: [x] laboratory results [x] radiographic results At the time of today's encounter. Pt was advised of the results. IMPRESSION: Discussed management with the ED provider and agree with hospitalization Acute, acute on chronic, unstable/uncontrolled chronic problems/diagnoses: Shortness of breath likely due to fluid overload A-fib/flutter Acute CHF ESRD on HD Sacral wound present on admission Subtherapeutic INR Dry gangrene on toes 1-4 left lower extremity Stable chronic problems affecting care, new non-acute diagnoses: Recent Klebsiella pneumonia with lung abscess S/p mechanical valve replacement on Coumadin IgA nephropathy Hypertension History of CAD, CABG History of intracranial hemorrhage PLAN: Give 1 dose of IV metoprolol 5 mg, resume home metoprolol 25 mg twice daily Consult cardiology Consult nephrology for ESRD and for fluid overload Pharmacy to dose Coumadin He finished dose of Augmentin on 03/10 Wound care consult Consider consult vascular surgery, check PVR PT, OT DVT /GI prophylaxis Labs for AM ordered Patient was informed about all workup and treatment plan -see below for additional orders, further recommendations to follow Orders Placed This Encounter Procedures SARS-CoV-2, Flu A/B, and RSV Combo XR chest [address] chest wo IV contrast CBC auto differential Comprehensive metabolic panel Blood gas, venous ([facility]) Protime-INR Serial Troponin, High Sensitivity Troponin, High Sensitivity, Serial, Second Test Adult diet Regular Telemetry monitoring for Arrhythmia Management ECG 12 lead Admit to inpatient Code status: Prior- NOTE: This report was transcribed using voice recognition software. Every effort was made to ensure accuracy; however, inadvertent computerized ski binding fitter and repairer errors may be present. Rubi Sanon MD,MD Division of Hospitalist Medicine [facility] Please forward a copy of this H&P to the patient's PCP. Thank you. Electronically signed by Rubi Sanon MD at 5:11 PM [1] Past Medical History: Diagnosis Date Acute renal failure (ARF) ([facility]) 10/19/2019 Anemia 12/30/2021 Calcification of abdominal aorta ([facility]) 10/08/202309/[address] abd Diverticulosis 10/08/2023 ESRD on hemodialysis ([facility]) ([facility]) 10/26/2019 Hemodialysis patient ([facility]) ([facility]) HTN (hypertension) 12/01/2022 Hypertension IgA nephropathy IgA nephropathy determined by biopsy of kidney 10/26/2019 Missed vaccination due to patient refusal 10/08/2023 Has a number of non-scientific based beliefs which interfere with his understanding and acceptance of the medical benefit of vaccination. Nonrheumatic aortic valve stenosis 10/08/2023 Paroxysmal A-fib ([facility]) ([facility]) 08/18/2023 Tobacco abuse 10/08/2023 [2] Past Surgical History: Procedure Laterality Date APPENDECTOMY CARDIAC CATHETERIZATION N/A 10/09/2024 Performed by Bob Watson MD at [facility] Cardiac Cath/EP Lab CARDIAC CATHETERIZATION Bilateral 11/01/2024 Performed by Bob Watson MD at [facility] Cardiac Cath/EP Lab CARDIAC CATHETERIZATION N/A 11/01/2024 Performed by Bob Watson MD at [facility] Cardiac Cath/EP Lab COLONOSCOPY N/A 01/24/2025 Performed by Chadd Davis MD at [facility] ENDOSCOPY FISTULAGRAM (HISTORICAL) Left 09/15/2021 LEFT UPPER ARM HX AV FISTULA CREATION IR EMBOLIZATION 10/14/2024 IR EMBOLIZATION 10/14/2024 [facility] SPECIAL PROCEDURES IR FISTULAGRAM 08/07/2022 IR FISTULAGRAM 08/07/2022 [facility] IR IMAGING TONSILLECTOMY (HISTORICAL) [3] Family History Problem Relation Name Age of Onset No Known Problems Mother No Known Problems Father [4] No current facility-administered medications for this encounter. [5] Allergies Allergen Reactions Lisinopril Swelling and Angioedema [facility] 03-13-2025 Note [facility] 03-13-2025 History and physical note [facility] Attending History and Physical Admit Date: 03/13/2025 PCP: Leilani Troncoso CHIEF COMPLAINT: History Obtained From: patient,EMR HISTORY OF PRESENT ILLNESS: Jun is a 59 y.o. male with past medical history of hypertension, IgA nephropathy, ESRD on HD, CAD, history of CABG, history of intracranial bleed, paroxysmal A-fib aortic stenosis, s/p mechanical valve replacement recent admission here from 02/20-03/05 for hemoptysis due to Klebsiella pneumonia with lung abscess presented to [facility] ED with worsening shortness of breath. He went to dialysis today, but was sent to ED due to worsening shortness of breath. Denies fever,chills,cough,chestpain, dizziness, abdominal pain, nausea, vomitting,constipation or diarrhea Work up in the ED Afebrile, blood pressure 146/94, tachycardic with heart rate ranging from 110s to 120s, was placed on 2 L of oxygen oxygen saturation 98% on 2 L CBC-hemoglobin of 8.5 close to baseline BMP-BUN of 41 creatinine of 3.32, potassium of 3.5 albumin of 1.5 Troponins-elevated at 39 likely due to ESRD EKG-atrial flutter CXR-cardiomegaly with pulmonary venous congestion CT chest revealed congestive heart failure with mild interstitial pulmonary edema, small pleural effusion. No acute lung consolidation. Multifocal areas of irregular pulmonary fibrosis. New ascites, omental edema and nodularity in upper abdomen He was transferred from [facility] to [facility] due to bed availability Past Medical History: Medical History[1] Past Surgical History: Surgical History[2] Social History: Social History Socioeconomic History Marital status: Spouse name: Not on file Number of children: Not on file Years of education: Not on file Highest education level: Not on file Occupational History Not on file Tobacco Use Smoking status: Former Current packs/day: 1.00 Average packs/day: 1.4 packs/day for 31.3 years (45.2 ttl pk-yrs) Types: Cigarettes Start date: 1993 [...] 0 min Stress: Stress Concern Present (02/21/2025) [employer] [employer] - Occupational Stress Questionnaire Feeling of Stress : To some extent Social Connections: Unknown (02/21/2025) Social Connection and Isolation Panel [NHANES] Frequency of Communication with Friends and Family: More than three times a week Frequency of Social Gatherings with Friends and Family: Patient declined Attends Rastafari Services: Patient declined Active Member of Clubs [...] the Last Year: No Family History: Family History[3] Medications Prior to Admission: Current Medications[4] Medication list reviewed Allergies: Allergies[5] REVIEW OF SYSTEMS: Other than Patient's chronic conditions and those complaints in the history above, the rest of the 10 systems review were done and were negative. Positive finding as documented in HPI Vitals: BP 141/93 Pulse 115 Temp 36.3 C (97.3 F) (Temporal) Resp 16 Ht 5' 10" (1.778 m) Wt 148 lb (67.1 kg) SpO2 97% BMI 21.24 kg/m BMI Classification: Normal Weight (BMI 18.5-24.9) Pulse Ox: SpO2 Av.8 % Min: 95 % Max: 100 % Supplemental O2: O2 Flow Rate (L/min): 3 L/min PHYSICAL EXAM: General appearance: No apparent distress, awake, alert oriented x 4 HEENT: Eyes: No scleral icterus,no pallor Oral: Tongue is semi-moist Cardiovascular: S1/S2 heard, irregularly irregular Respiratory: Decreased breath sounds bilaterally fine rales at bilateral lung bases Abdomen: Soft, non-tender, non-distended bowel sounds positive,no mass palpable Extremity: No pitting edema Skin: Sacral wound with wound VAC, gangrenous toes noted on first 4 toes on left lower extremity DATA: BC: Recent Labs 03/13/25 0902 WBC 8.0 RBC 2.86* HGB 11.8* 8.5* HCT 28.4* MCV 99.3* RDW 21.2* PLT 392 BMP: Recent Labs 03/13/25 0945 NA 141 K 3.5 CL 110* CO2 25 BUN 41* CREATININE 3.32* GLUCOSE 71* CALCIUM 7.3* ANIONGAP 6 LIVER PROFILE: Recent Labs 03/13/25 0945 AST 37* ALT 7 BILITOT 0.5 ALKPHOS 122 PROT 5.5* PT/INR: Recent Labs 03/13/25 0902 PROTIME 17.7* INR 1.7* CARDIAC ENZYMES: No results for input(s): "TROPONINI" in the last 72 hours. Procalcitonin: No results found for: "PROCAL" Urine Culture: No results found for this or any previous visit. COVID-19 PCR: No results for input(s): "COVID19" in the last 72 hours. I reviewed: [x] laboratory results [x] radiographic results At the time of today's encounter. Pt was advised of the results. IMPRESSION: Discussed management with the ED provider and agree with hospitalization Acute, acute on chronic, unstable/uncontrolled chronic problems/diagnoses: Shortness of breath likely due to fluid overload A-fib/flutter Acute CHF ESRD on HD Sacral wound present on admission Subtherapeutic INR Dry gangrene on toes 1-4 left lower extremity Stable chronic problems affecting care, new non-acute diagnoses: Recent Klebsiella pneumonia with lung abscess S/p mechanical valve replacement on Coumadin IgA nephropathy Hypertension History of CAD, CABG History of intracranial hemorrhage PLAN: Give 1 dose of IV metoprolol 5 mg, resume home metoprolol 25 mg twice daily Consult cardiology Consult nephrology for ESRD and for fluid overload Pharmacy to dose Coumadin He finished dose of Augmentin on 03/10 Wound care consult Consider consult vascular surgery, check PVR PT, OT DVT /GI prophylaxis Labs for AM ordered Patient was informed about all workup and treatment plan -see below for additional orders, further recommendations to follow Orders Placed This Encounter Procedures SARS-CoV-2, Flu A/B, and RSV Combo XR chest [address] chest wo IV contrast CBC auto differential Comprehensive metabolic panel Blood gas, venous (ACH and SBH) Protime-INR Serial Troponin, High Sensitivity Troponin, High Sensitivity, Serial, Second Test Adult diet Regular Telemetry monitoring for Arrhythmia Management ECG 12 lead Admit to inpatient Code status: Prior- NOTE: This report was transcribed using voice recognition software. Every effort was made to ensure accuracy; however, inadvertent computerized ski binding fitter and repairer errors may be present. Rubi Sanon MD,MD Division of Hospitalist Medicine [facility] Please forward a copy of this H&P to the patient's PCP. Thank you. Electronically signed by Rubi Sanon MD at 5:11 PM [1] Past Medical History: Diagnosis Date Acute renal failure (ARF) ([facility]) 10/19/2019 Anemia 12/30/2021 Calcification of abdominal aorta ([facility]) 10/08/202309/[address] abd Diverticulosis 10/08/2023 ESRD on hemodialysis ([facility]) ([facility]) 10/26/2019 Hemod[place] ([facility]) HTN (hypertension) 12/01/2022 Hypertension IgA nephropathy IgA nephropathy determined by biopsy of kidney 10/26/2019 Missed vaccination due to patient refusal 10/08/2023 Has a number of non-scientific based beliefs which interfere with his understanding and acceptance of the medical benefit of vaccination. Nonrheumatic aortic valve stenosis 10/08/2023 Paroxysmal A-fib ([facility]) ([facility]) 08/18/2023 Tobacco abuse 10/08/2023 [2] Past Surgical History: Procedure Laterality Date APPENDECTOMY CARDIAC CATHETERIZATION N/A 10/09/2024 Performed by Bob Watson MD at [facility] Cardiac Cath/EP Lab CARDIAC CATHETERIZATION Bilateral 11/01/2024 Performed by Bob Watson MD at [facility] Cardiac Cath/EP Lab CARDIAC CATHETERIZATION N/A 11/01/2024 Performed by Bob Watson MD at [facility] Cardiac Cath/EP Lab COLONOSCOPY N/A 01/24/2025 Performed by Chadd Davis MD at [facility] ENDOSCOPY FISTULAGRAM (HISTORICAL) Left 09/15/2021 LEFT UPPER ARM HX AV FISTULA CREATION IR EMBOLIZATION 10/14/2024 IR EMBOLIZATION 10/14/2024 [facility] SPECIAL PROCEDURES IR FISTULAGRAM 08/07/2022 IR FISTULAGRAM 08/07/2022 [facility] IR IMAGING TONSILLECTOMY (HISTORICAL) [3] Family History Problem Relation Name Age of Onset No Known Problems Mother No Known Problems Father [4] No current facility-administered medications for this encounter. [5] Allergies Allergen Reactions Lisinopril Swelling and Angioedema documented in this encounter [facility] 03-13-2025 Emergency department Note When this RN came back from lunch Pt was already taken to [facility] by Consuelo Day. RN covering my lunch called report to RN [facility]. [facility] 03-13-2025 Emergency department Note When this RN came back from lunch Pt was already taken to [facility] by Consuelo Day. RN covering my lunch called report to RN [facility]. Called report to SWEETIE Linder at 5W. Consuelo Johnson at bedside to transport patient to [facility]. Emergency Department Encounter Pt Name: Jun Snyder Birthdate 1965 Date of evaluation: 03/13/2025 Provider: Keiry Solares MD CHIEF COMPLAINT Chief Complaint Patient presents with Shortness of Breath Pt arrived from shelter via EMS. Pt was starting dialysis and feeling short of breath dialysis was stopped and sent to the hospital to be evaluated. HISTORY OF PRESENT ILLNESS HPI Jun Snyder is a 59 y.o. male with history that includes ESRD on hemodialysis he does not know which days, paroxysmal A-fib, hypertension, presenting from dialysis where he was feeling short of breath right after they placed the needle and he was therefore brought to the ED. He states that he has had increased shortness of breath and a cough that presents when he tries to talk. No fever or chills. Nose nasal congestion rhinorrhea or sore throat. States that he does not get dialyzed on Wednesday or Wednesday but does not remember if he got dialyzed on Wednesday. Nursing Notes were reviewed. Medical History[1] REVIEW OF SYSTEMS Several elements of the ROS reviewed and otherwise acutely negative except as in the HPI. PHYSICAL EXAM ED Triage Vitals [03/13/25 0827] Temp Heart Rate Resp BP 36.8 C (98.2 F) (!) 116 18 (!) 146/94 SpO2 Temp Source Heart Rate Source Patient Position 98 % Axillary -- -- BP Location FiO2 (%) -- -- Physical Exam Vitals and nursing note reviewed. Constitutional: General: He is not in acute distress. Appearance: He is well-developed. He is ill-appearing. HENT: Head: Normocephalic and atraumatic. Eyes: Conjunctiva/sclera: Conjunctivae normal. Cardiovascular: Rate and Rhythm: Regular rhythm. Tachycardia present. Heart sounds: No murmur heard. Pulmonary: Effort: Pulmonary effort is normal. No respiratory distress. Breath sounds: Rales (Mild diffuse) present. Abdominal: Palpations: Abdomen is soft. Tenderness: There is no abdominal tenderness. Musculoskeletal: General: No swelling. Cervical back: Neck supple. Right lower leg: No tenderness. No edema. Left lower leg: No tenderness. No edema. Skin: General: Skin is warm and dry. Neurological: Mental Status: He is alert. Psychiatric: Mood and Affect: Mood normal. Shiro Coma Scale Best Eye Response: Spontaneous Best Verbal Response: Oriented Best Motor Response: Follows commands Shiro Coma Scale Score: 15 EMERGENCY DEPARTMENT COURSE and DIFFERENTIAL DIAGNOSIS/MDM: Differential diagnoses include: Arrhythmia, pulmonary edema, pneumonia, electrolyte abnormality particular hyperkalemia Sources of history: discharge summary from 03/05/25, incorporated findings into the note Diagnostic tests considered but not performed: d-dimer; doubt PE. ED course: ED Course as of 03/13/252112Mar 13, 2025 0846 I interpreted the ECG as showing atrial flutter with predominant 2-1 AV block rate of 117 bpm, prolonged QTc of 520 ms, incomplete right bundle branch block, diffuse T wave inversions and repolarization abnormality noted. [AK] 0920 There is significant anemia, though he is not in need of a blood transfusion. Platelets and WBCs are normal. VBG showing normal pH and pCO2. [AK] 0920 I interpreted the chest x-ray as showing pulmonary venous congestion, no focal consolidation convincing for pneumonia and no pleural effusion. [AK] 1023 There is no hyperkalemia. There is elevated creatinine BUN consistent with his history of ESRD. [AK] 1043 I reviewed the discharge summary, he had been admitted for pneumonia [AK] ED Course User Index [AK] Keiry Solares MD Diagnoses as of 03/13/252112 SOB (shortness of breath) I discussed the case with Dr. Montiel with nephrology who advised no need for emergent dialysis. Although volume overload is a significant contributing factor to his SOB, I wonder to what degree the a flutter is causing SOB. He is subtherapeutic on his INR and will need cardiology eval, possible YG and cardioversion. I gave him metoprolol 25 mg orally. I discussed the case with Dr. Hoffman, due to no available beds at [facility] and available beds at [facility] patient wishes to be transferred. I discussed the case with Dr. Sanon at [facility] who accepts patient for transfer. Chronic conditions and social determinants of health affecting care: atrial fibrillation, ESRD DISPOSITION/PLAN Admit 03/13/2025 02:55:43 PM Keiry Solares MD Emergency Medicine [1] Past Medical History: Diagnosis Date Acute renal failure (ARF) ([facility]) 10/19/2019 Anemia 12/30/2021 Calcification of abdominal aorta ([facility]) 10/08/202309/[address] abd Diverticulosis 10/08/2023 ESRD on hemodialysis ([facility]) ([facility]) 10/26/2019 Hemodialysis patient ([facility]) ([facility]) HTN (hypertension) 12/01/2022 Hypertension IgA nephropathy IgA nephropathy determined by biopsy of kidney 10/26/2019 Missed vaccination due to patient refusal 10/08/2023 Has a number of non-scientific based beliefs which interfere with his understanding and acceptance of the medical benefit of vaccination. Nonrheumatic aortic valve stenosis 10/08/2023 Paroxysmal A-fib ([facility]) ([facility]) 08/18/2023 Tobacco abuse 10/08/2023 Keiry Solares MD 03/13/252115 documented in this encounter [facility] 03-13-2025 Emergency department Note Called report to SWEETIE Linder at 5W. [facility] 03-13-2025 Emergency department Note Consuelo Johnson at bedside to transport patient to [facility]. [facility] 03-13-2025 Physician Emergen cy department Note Emergency Department Encounter Pt Name: Jun Snyder Birthdate 1965 Date of evaluation: 03/13/2025 Provider: Keiry Soalres MD CHIEF COMPLAINT Chief Complaint Patient presents with Shortness of Breath Pt arrived from shelter via EMS. Pt was starting dialysis and feeling short of breath dialysis was stopped and sent to the hospital to be evaluated. HISTORY OF PRESENT ILLNESS HPI Jun Snyder is a 59 y.o. male with history that includes ESRD on hemodialysis he does not know which days, paroxysmal A-fib, hypertension, presenting from dialysis where he was feeling short of breath right after they placed the needle and he was therefore brought to the ED. He states that he has had increased shortness of breath and a cough that presents when he tries to talk. No fever or chills. Nose nasal congestion rhinorrhea or sore throat. States that he does not get dialyzed on Wednesday or Wednesday but does not remember if he got dialyzed on Wednesday. Nursing Notes were reviewed. Medical History[1] REVIEW OF SYSTEMS Several elements of the ROS reviewed and otherwise acutely negative except as in the HPI. PHYSICAL EXAM ED Triage Vitals [03/13/25 0827] Temp Heart Rate Resp BP 36.8 C (98.2 F) (!) 116 18 (!) 146/94 SpO2 Temp Source Heart Rate Source Patient Position 98 % Axillary -- -- BP Location FiO2 (%) -- -- Physical Exam Vitals and nursing note reviewed. Constitutional: General: He is not in acute distress. Appearance: He is well-developed. He is ill-appearing. HENT: Head: Normocephalic and atraumatic. Eyes: Conjunctiva/sclera: Conjunctivae normal. Cardiovascular: Rate and Rhythm: Regular rhythm. Tachycardia present. Heart sounds: No murmur heard. Pulmonary: Effort: Pulmonary effort is normal. No respiratory distress. Breath sounds: Rales (Mild diffuse) present. Abdominal: Palpations: Abdomen is soft. Tenderness: There is no abdominal tenderness. Musculoskeletal: General: No swelling. Cervical back: Neck supple. Right lower leg: No tenderness. No edema. Left lower leg: No tenderness. No edema. Skin: General: Skin is warm and dry. Neurological: Mental Status: He is alert. Psychiatric: Mood and Affect: Mood normal. Rehan Coma Scale Best Eye Response: Spontaneous Best Verbal Response: Oriented Best Motor Response: Follows commands Rehan Coma Scale Score: 15 EMERGENCY DEPARTMENT COURSE and DIFFERENTIAL DIAGNOSIS/MDM: Differential diagnoses include: Arrhythmia, pulmonary edema, pneumonia, electrolyte abnormality particular hyperkalemia Sources of history: discharge summary from 03/05/25, incorporated findings into the note Diagnostic tests considered but not performed: d-dimer; doubt PE. ED course: ED Course as of 03/13/252112e Mar 13, 2025 0846 I interpreted the ECG as showing atrial flutter with predominant 2-1 AV block rate of 117 bpm, prolonged QTc of 520 ms, incomplete right bundle branch block, diffuse T wave inversions and repolarization abnormality noted. [AK] 0920 There is significant anemia, though he is not in need of a blood transfusion. Platelets and WBCs are normal. VBG showing normal pH and pCO2. [AK] 0920 I interpreted the chest x-ray as showing pulmonary venous congestion, no focal consolidation convincing for pneumonia and no pleural effusion. [AK] 1023 There is no hyperkalemia. There is elevated creatinine BUN consistent with his history of ESRD. [AK] 1043 I reviewed the discharge summary, he had been admitted for pneumonia [AK] ED Course User Index [AK] Keiry Solares MD Diagnoses as of 03/13/252112 SOB (shortness of breath) I discussed the case with Dr. Montiel with nephrology who advised no need for emergent dialysis. Although volume overload is a significant contributing factor to his SOB, I wonder to what degree the a flutter is causing SOB. He is subtherapeutic on his INR and will need cardiology eval, possible YG and cardioversion. I gave him metoprolol 25 mg orally. I discussed the case with Dr. Hoffman, due to no available beds at [facility] and available beds at [facility] patient wishes to be transferred. I discussed the case with Dr. Sanon at [facility] who accepts patient for transfer. Chronic conditions and social determinants of health affecting care: atrial fibrillation, ESRD DISPOSITION/PLAN Admit 03/13/2025 02:55:43 PM Keiry Solares MD Emergency Medicine [1] Past Medical History: Diagnosis Date Acute renal failure (ARF) ([facility]) 10/19/2019 Anemia 12/30/2021 Calcification of abdominal aorta ([facility]) 10/08/202309/[address] abd Diverticulosis 10/08/2023 ESRD on hemodialysis ([facility]) ([facility]) 10/26/2019 Hemodialysis [place] ([facility]) HTN (hypertension) 12/01/2022 Hypertension IgA nephropathy IgA nephropathy determined by biopsy of kidney 10/26/2019 Missed vaccination due to patient refusal 10/08/2023 Has a number of non-scientific based beliefs which interfere with his understanding and acceptance of the medical benefit of vaccination. Nonrheumatic aortic valve stenosis 10/08/2023 Paroxysmal A-fib ([facility]) ([facility]) 08/18/2023 Tobacco abuse 10/08/2023 Keiry Solares MD 03/13/256 [facility] 03-08-2025 History of Presen t illness Narrative Pt was followed by the Palliative Care Team during hospitalization at [facility]. Provider is recommending continued Palliative follow up in the community. Referral made too [facility] Palliative Care Team, faxed info to [phone] documented in this encounter [facility] 03-08-2025 Telephone encount er Note 2nd attempt called and spoke to the Alyssa the Nurse for the patient at the facility he lives at. She states Sabino is the person who schedules the appointments and she is on vacation and wont be back till next Wednesday. I will try again next wednesday [facility] 03-08-2025 Miscellaneous Notes Formattin g of this [...] this? Thank you documented in this encounter [facility] 03-05-2025 History of Presen t illness Narrative Images from the original note were not included. PHYSICAL THERAPY [facility] Treatment Note Name/MRN: Jair Snyder ([id number]) Date of : 1965 Age: 59 y.o. Room/Bed: W3-334/W3-334 A Discharge Recommendation: Detention Facility Equipment Needed: (tbd) Assessment Increased time [...] any questions or concerns Bree Molina APRN PANTS PRESSER A-G WIRED MUSIC OPERATOR [facility] [phone] I reviewed with FLOWER CHENILLER-PANTS PRESSER the medical history and the findings on physical examination. I discussed the patient s diagnosis and concur with the treatment plan as documented in his note. Please call [phone] or message me through [employer] with any questions or concerns. [facility] Anticoagulation Management Service ([facility]) Inpatient Warfarin Consult HPI: Jun Snyder is a 59 y.o. male admitted on 02/20/2025 for Hemoptysis [R04.2]. Medical History[1] Patient is on warfarin for mechanical AVR and has a goal INR 2.0 - 3.0. Patient was referred to [facility], but so far has been managed at facilities, most recently [facility]. Pt's home dose of warfarin is 1.5mg [...] 1.5 7.5 mg 6/7 1.6 6 mg 66 1.4 5mg 6/5 1.4 4mg 02/28 1.3 3mg 02/27 1.3 [...] over when discharged from facility. Tiffanie Dial [facility] Consult Service is available daily [phone] via [employer] Secure Chat. [1] Past Medical History: Diagnosis Date Acute renal failure (ARF) ([facility]) 10/19/2019 Anemia 12/30/2021 Calcification of abdominal aorta ([facility]) 10/08/202309/[address] abd Diverticulosis 10/08/2023 ESRD on hemodialysis [place] ([facility]) 10/26/2019 Hemodialysis patient ([facility] ([facility]) HTN (hypertension) 12/01/2022 Hypertension IgA nephropathy IgA nephropathy determined by biopsy of kidney 10/26/2019 Missed vaccination due to patient refusal 10/08/2023 Has a number of non-scientific based beliefs which interfere with his understanding and acceptance of the medical benefit of vaccination. Nonrheumatic aortic valve stenosis 10/08/2023 Paroxysmal A-fib ([facility]) (HCC) 08/18/2023 Tobacco abuse 10/08/2023 Hospitalist Progress Note - [facility] - [facility] ([facility]) 03/05/2025 7:13 AM [phone]: Please page me for patient care issues. [phone]: Please page [facility] Hospitalist - [facility] for any issues. [...] was bright red and it stopped 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 Adult diet Regular Dietary [...] - (0 mL/kg) Weight: 60.8 kg @IODETAILS@ @[id number]@ Medications: Continuous Meds[1] Scheduled Meds[2] Recent Labs [...] "CHOL" No results found for: "PHART", "PO2ART", "[id number]" Recent Labs 03/04/25 0156 03/04/25 0946 03/05/25 [...] medically stable for discharge - Location - [facility] ([facility]) - Pending the following - dispo, [...] Extended Emergency Contact Information Primary Emergency Contact: LillianOmar Mobile Relation: Child Secondary Emergency Contact: TarunToma Mobile Relation: Partner Anthony Hurtado DO Division of Hospitalist Medicine Inpatient Medical Services/[facility] [1] heparin, 5-30 Units/kg/hr, Last Rate: 21 Units/kg/hr (03/05/25 9293) [2] B complex-vitamin C-folic acid, 1 capsule, [...] original note were not included. PHYSICAL THERAPY [facility] Name/MRN: Jair Snyder ([id number]) Date: 03/04/2025 Attempted to initiate PT this date; upon arrival, patient states he is needs to have a bowel movement and does not want to do PT. Offered to ambulate patient to bathroom or use of a bedpan however patient declines. Will continue to follow. Emily Stanley PTA Cosigned by Darryn Tay PT at 03/04/2025 3:38 PM EDT Hospitalist Progress Note - [facility] - [facility] ([facility]) 03/04/2025 9:11 AM [phone]: Please page me for patient care issues. [phone]: Please page [facility] - [facility] for any issues. [...] was bright red and it stopped 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 Adult diet Regular Dietary [...] - (0 mL/kg) Weight: 60.8 kg @IODETAILS@ @[id number]@ Medications: Continuous Meds[1] Scheduled Meds[2] Recent Labs [...] "CHOL" No results found for: "PHART", "PO2ART", "[id number]" Recent Labs 03/02/25 0004 03/03/25 0212 03/04/25 [...] - 03/04 - 05/05 - Location - [facility] ([facility]) - Pending the following - INR [...] DO Division of Hospitalist Medicine Inpatient Medical Services/[facility] [1] heparin, 5-30 [...] electrolyte and CBC daily Maryam Marcelo DO [facility] Anticoagulation Management Service ([facility]) Inpatient Warfarin Consult HPI: Jun Snyder is a 59 y.o. male admitted on 02/20/2025 for Hemoptysis [R04.2]. Medical History[1] Patient is on warfarin for mechanical AVR and has a goal INR 2.0 - 3.0. Patient was referred to [facility], but so far has been managed at facilities, most recently [facility]. Pt's home dose of warfarin is 1.5mg [...] Date INR Dose 03/04 1.5 7.5 mg 6 1.6 6 mg 03/02 1.4 5mg 6/ 1.4 4mg / 1.3 3mg 02/27 1.3 2mg 02/26 1.3 [...] PharmD [facility] Consult Service is available daily [phone] via [employer] Secure PollGround. [1] Past Medical History: Diagnosis Date Acute renal failure (ARF) ([facility]) 10/19/2019 Anemia 12/30/2021 Calcification of abdominal aorta ([facility]) 10/08/202309/[address] abd Diverticulosis 10/08/2023 ESRD on hemodialysis ([facility]) ([facility]) 10/26/2019 Hemod[place] ([facility]) HTN (hypertension) 12/01/2022 Hypertension IgA nephropathy IgA nephropathy determined by biopsy of kidney 10/26/2019 Missed vaccination due to patient refusal 10/08/2023 Has a number of non-scientific based beliefs which interfere with his understanding and acceptance of the medical benefit of vaccination. Nonrheumatic aortic valve stenosis 10/08/2023 Paroxysmal A-fib ([facility]) ([facility]) 08/18/2023 Tobacco abuse 10/08/2023 Hospitalist Progress Note - [facility] - [facility] ([facility]) 03/03/2025 8:37 AM [phone]: Please page me for patient care issues. [phone]: Please page [facility] Hospitalist - [facility] for any issues. Subjective and Objective: Admit Date: 02/20/2025 PCP: Leilani Troncsoo Chief Complaint Patient presents with Coughing Up Blood Pt arrives via EMS due to coughing up blood. This began around 1200 today while he was at dialysis. Pt endorses nausea, but denies any related abdominal pain. Per pt and EMS, the blood he was coughing up was bright red and it stopped 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 Adult diet Regular Dietary [...] (0.4 mL/kg) [Drains:25] Weight: 60.8 kg @IODETAILS@ @[id number]@ Medications: Continuous Meds[1] Scheduled Meds[2] Recent Labs [...] "CHOL" No results found for: "PHART", "PO2ART", "[id number]" Recent Labs 03/01/25 0003 03/02/25 0004 03/03/25 [...] - Date - 03/04 - Location - [facility] ([facility]) - Pending the following - INR [...] DO Division of Hospitalist Medicine Inpatient Medical Services/[facility] [1] heparin, 5-30 [...] or concerns Bree Molina APRN, CNP A-G WIRED MUSIC OPERATOR [facility] [phone] Pt seen and examined independently by me. I reviewed with DENIA-SAMIA the medical history and the findings on physical examination. I discussed the patient s diagnosis and concur with the treatment plan as documented in his note. Please call [phone] or message me through Aud[employer] with any questions or concerns. Hospitalist Progress Note - [facility] [employer] ([employer] 03/02/2025 8:20 AM [phone]: Please page me for patient care issues. [phone]: Please page [facility] Hospitalist - [facility] for any issues. [...] was bright red and it stopped 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 Adult diet Regular Dietary [...] (0.7 mL/kg) [Drains:40] Weight: 60.8 kg @IODETAILS@ @[id number]@ Medications: Continuous Meds[1] Scheduled Meds[2] Recent Labs [...] "CHOL" No results found for: "PHART", "PO2ART", "[id number]" Recent Labs 02/28/25 0004 03/01/25 0003 03/02/25 [...] - Date - 03/03 - Location - [facility] ([facility]) - Pending the following - INR 1.8, [...] DO Division of Hospitalist Medicine Inpatient Medical Services/[facility] [1] heparin, 5-30 Units/kg/hr, Last Rate: 19 Units/kg/hr (03/02/25 0813) [2] B complex-vitamin C-folic acid, 1 capsule, Oral, Daily metoprolol tartrate, 25 mg, Oral, BID pantoprazole, 40 mg, Oral, BID AC piperacillin-tazobactam, 2,250 mg, IntraVENous, q6h QUEtiapine, 25 mg, Oral, Nightly sevelamer carbonate, 800 mg, Oral, TID WC warfarin, 5 mg, Oral, Once [facility] Anticoagulation Management Service ([facility]) Inpatient Warfarin Consult HPI: Jun Snyder is a 59 y.o. male admitted on 02/20/2025 for Hemoptysis [R04.2]. Medical History[1] Patient is on warfarin for mechanical AVR and has a goal INR 2.0 - 3.0. Patient was referred to [facility], but so far has been managed at facilities, most recently [facility]. Pt's home dose of warfarin is 1.5mg [...] Dose 03/01 1.4 5mg 03/01 1.4 4mg 4 1.3 3mg 3 1.3 2mg 6/2 1.3 1.5mg 02/25 1.3 1 mg 02/24 [...] RPh [facility] Consult Service is available daily [phone] via [employer] Secure PollGround. [1] Past Medical History: Diagnosis Date Acute renal failure (ARF) ([facility]) 10/19/2019 Anemia 12/30/2021 Calcification of abdominal aorta ([facility]) 10/08/202309/[address] abd Diverticulosis 10/08/2023 ESRD on hemodialysis ([facility]) ([facility]) 10/26/2019 Hemod[place] ([facility]) HTN (hypertension) 12/01/2022 Hypertension IgA nephropathy IgA nephropathy determined by biopsy of kidney 10/26/2019 Missed vaccination due to patient refusal 10/08/2023 Has a number of non-scientific based beliefs which interfere with his understanding and acceptance of the medical benefit of vaccination. Nonrheumatic aortic valve stenosis 10/08/2023 Paroxysmal A-fib ([facility]) ([facility]) 08/18/2023 Tobacco abuse 10/08/2023 Images from the original note were not included. PHYSICAL THERAPY [facility] Treatment Note Name/MRN: Jari Snyder ([id number]) Date of : 1965 Age: 59 y.o. Room/Bed: W3-334/W3-334 A Discharge Recommendation: Detention Facility Equipment Needed: No Assessment Good distance, gait tolerance. SpO2 96% after gait. Increased time for all activity, particular how things are completed. Rec skilled PT Subjective Reluctant but agree to PT. Pain: buttocks, toes left Medical Precautions: No active isolations Proper PPE donned/doffed in accordance with facility standards. Fall Risk: Roque Fall Risk Score: 80 (Low Risk) Rouqe Fall Risk Score: 80 (High Risk) Precautions/Restrictions: [...] 30 Timed Code Treatment Minutes: (gt-fa) Merlene León, SENIOR CHEMICAL ENGINEER Cosigned by Anthony Black PT at 03/01/2025 4:34 PM EDT Associated attestation - Anthony Black PT - 03/01/2025 4:34 PM EDT Did not have opportunity today to speak to SENIOR CHEMICAL ENGINEER re: recommendation. Mobility appears to be consistent with homegoing, but know that medical conditions and other factors clearly could influence recommendations. Images from the original note were not included. OCCUPATIONAL THERAPY [facility] Treatment Note Name/MRN: Jair Snyder ([id number]) Date of : 1965 Age: 59 y.o. Room/Bed: W3-334/W3-334 A Discharge Recommendation: Detention Facility Other: DME TBD at next level [...] any questions or concerns Bree Molina APRN PANTS PRESSER A-G WIRED MUSIC OPERATOR [facility] [phone] Pt seen and examined independently by me. I reviewed with Jun Maki, the medical history and the findings on physical examination. I discussed the patient s diagnosis and concur with the treatment plan as documented in his note. Please call [phone] or message me through [employer] with any questions or concerns. Hospitalist Progress Note - [facility] - [employer] ([facility]) 03/01/2025 9:51 AM [phone]: Please page me for patient care issues. [phone]: Please page [facility] Hospitalist - [facility] for any issues. [...] was bright red and it stopped 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 Adult diet Regular Dietary Orders (From admission, onward) Start Ordered 02/27/25 1254 Supplement:Breakfast, Dinner; Nepro w/CARB Steady Until discontinued Question Answer Comment Frequency Breakfast Frequency Dinner Select supplement: Nepro w/CARB Steady 02/27/25 1254 02/21/25 1021 Adult diet Regular Diet effective now Question: Diet type Answer: Regular 02/21/25 1021 No intake/output data recorded. @IODETAILS@ @[id number]@ Medications: Continuous Meds[1] Scheduled Meds[2] Recent Labs [...] "CHOL" No results found for: "PHART", "PO2ART", "[id number]" Recent Labs 02/27/25 0010 02/28/25 0004 03/01/25 [...] - 03/01 - 03/02 - Location - [facility] ([facility]) - Pending the following - INR 1.8, [...] DO Division of Hospitalist Medicine Inpatient Medical Services/[facility] [1] heparin, 5-30 [...] original note were not included. PHYSICAL THERAPY [facility] Name/MRN: Jair Snyder ([id number]) Date: 03/01/2025 Leaving for dialysis. Return later time/date for PT. Merlene León, SENIOR CHEMICAL ENGINEER Cosigned by Anthony Black PT at 03/01/2025 8:42 AM EDT [facility] Anticoagulation Management Service ([facility]) Inpatient Warfarin Consult HPI: Jun Snyder is a 59 y.o. male admitted on 02/20/2025 for Hemoptysis [R04.2]. Medical History[1] Patient is on warfarin for mechanical AVR and has a goal INR 2.0 - 3.0. Patient was referred to [facility], but so far has been managed at facilities, most recently [facility]. Pt's home dose of warfarin is 1.5mg [...] over when discharged from facility. Fatuma Odonnell [facility] Consult Service is available daily [phone] via Audiotoniq Secure Chat. [1] Past Medical History: Diagnosis Date Acute renal failure (ARF) ([facility]) 10/19/2019 Anemia 12/30/2021 Calcification of abdominal aorta ([facility]) 10/08/202309/[address] abd Diverticulosis 10/08/2023 ESRD [place] hemodialysis [place] ([facility]) 10/26/2019 Hemodialysis patient ([facility]) ([facility]) HTN (hypertension) 12/01/2022 Hypertension IgA nephropathy IgA nephropathy determined by biopsy of kidney 10/26/2019 Missed vaccination due to patient refusal 10/08/2023 Has a number of non-scientific based beliefs which interfere with his understanding and acceptance of the medical benefit of vaccination. Nonrheumatic aortic valve stenosis 10/08/2023 Paroxysmal A-fib ([facility]) ([facility]) 08/18/2023 Tobacco abuse 10/08/2023 Nephrology Progress [...] any questions or concerns Bree Molina APRN PANTS PRESSER A-G WIRED MUSIC OPERATOR [facility] [phone] Pt seen and examined independently by me. I reviewed with FLOWER CHENILLER-PANTS PRESSER the medical history and the findings on physical examination. I discussed the patient s diagnosis and concur with the treatment plan as documented in his note. Please call [phone] or message me through [employer] with any questions or concerns. Hospitalist Progress Note - [facility] - [employer] ([facility]) 02/28/2025 8:23 AM [phone]: Please page me for patient care issues. [phone]: Please page [facility] Hospitalist - [facility] for any issues. [...] was bright red and it stopped 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 Adult diet Regular Dietary [...] [Urine:450 (0.2 mL/kg/hr)] Weight: 60.8 kg @IODETAILS@ @[id number]@ Medications: Continuous Meds[1] Scheduled Meds[2] Recent Labs [...] "CHOL" No results found for: "PHART", "PO2ART", "[id number]" Recent Labs 02/25/25 2345 02/27/25 0010 02/28/25 [...] 03/01 - 03/02 - Location - SN[facility] ([facility]) - Pending the following - INR 2.0, [...] DO Division of Hospitalist Medicine Inpatient Medical Services/[facility] [1] heparin, 5-30 [...] from the original note were not included. [facility] Progress Note Jun Snyder [...] premedicated for pain with pain medication, per staff interpreter, prior to wound VAC dressing change. Wet [...] apply Betadine and allow to dry, leave PUBLIC RELATIONS ANALYST daily and PRN Right wrist Abrasion: [...] to follow Recommend to follow up at [facility] Outpatient wound care center after [...] History: Diagnosis Date Acute renal failure (ARF) ([facility]) 10/19/2019 Anemia 12/30/2021 Calcification of abdominal aorta ([facility]) 10/08/202309/[address] abd Diverticulosis 10/08/2023 ESRD on hemodialysis ([facility]) ([facility]) 10/26/2019 Hemodialysis patient ([facility] ([facility]) HTN (hypertension) 12/01/2022 Hypertension IgA nephropathy IgA nephropathy determined by biopsy of kidney 10/26/2019 Missed vaccination due to patient refusal 10/08/2023 Has a number of non-scientific based beliefs which interfere with his understanding and acceptance of the medical benefit of vaccination. Nonrheumatic aortic valve stenosis 10/08/2023 Paroxysmal A-fib ([facility]) ([facility]) 08/18/2023 Tobacco abuse 10/08/2023 [2] Past Surgical History: Procedure Laterality Date APPENDECTOMY CARDIAC CATHETERIZATION N/A 10/09/2024 Performed by Bob Watson MD at [facility] Cardiac Cath/EP Lab CARDIAC CATHETERIZATION Bilateral 11/01/2024 Performed by Bob Watson MD at [facility] Cardiac Cath/EP Lab CARDIAC CATHETERIZATION N/A 11/01/2024 Performed by Bob Watson MD at [facility] Cardiac Cath/EP Lab COLONOSCOPY N/A 01/24/2025 Performed by Chadd Davis MD at [facility] ENDOSCOPY FISTULAGRAM (HISTORICAL) Left 09/15/2021 LEFT UPPER ARM HX AV FISTULA CREATION IR EMBOLIZATION 10/14/2024 IR EMBOLIZATION 10/14/2024 [facility] SPECIAL PROCEDURES IR FISTULAGRAM 08/07/2022 IR FISTULAGRAM 08/07/2022 [facility] IR IMAGING TONSILLECTOMY (HISTORICAL) [3] Family History [...] Gill DO at 03/01/2025 2:50 PM EDT [facility] Anticoagulation Management Service ([facility]) Inpatient Warfarin Consult HPI: Jun Snyder is a 59 y.o. male admitted on 02/20/2025 for Hemoptysis [R04.2]. Medical History[1] Patient is on warfarin for mechanical AVR and has a goal INR 2.0 - 3.0. Patient was referred to [facility], but so far has been managed at facilities, most recently [facility]. Pt's home dose of warfarin is 1.5mg [...] RPh [facility] Consult Service is available daily [phone] via [employer] Secure PollGround. [1] Past Medical History: Diagnosis Date Acute renal failure (ARF) ([facility]) 10/19/2019 Anemia 12/30/2021 Calcification of abdominal aorta ([facility]) 10/08/202309/[address] abd Diverticulosis 10/08/2023 ESRD [place] hemodialysis [place] ([facility]) 10/26/2019 Hemodialysis patient ([facility] ([facility]) HTN (hypertension) 12/01/2022 Hypertension IgA nephropathy IgA nephropathy determined by biopsy of kidney 10/26/2019 Missed vaccination due to patient refusal 10/08/2023 Has a number of non-scientific based beliefs which interfere with his understanding and acceptance of the medical benefit of vaccination. Nonrheumatic aortic valve stenosis 10/08/2023 Paroxysmal A-fib ([facility]) ([facility]) 08/18/2023 Tobacco abuse 10/08/2023 Nephrology Progress [...] from the original note were not included. [facility] - Infectious Diseases Attending Progress Note [...] Total Energy Requirements (kcals/day): 30-35 kcal/kg = 5325-4653 kcal Weight Used for Protein Requirements: Current Weight in Kg Used for Protein Requirements: 61.1 kg Estimated Total Protein (g/day): 1.2-1.5 gm/kg = 73-92 gm Estimated Daily Total Fluid (ml/day): per recommendations Nutrition Related Findings: +BS. +I&O. No [...] lb) (08/28/24) % Weight Change (Calculated): -34.6 [place] Body Weight (lbs) (Calculated): 166 lbs [place] Body Weight (Kg) (Calculated): 75 kg % [place] Body Weight (Calculated): 81.1 % BMI (kg/m2) [...] to determine Glenys Juares RD, LD Contact: [phone] Images from the original note were not included. PHYSICAL THERAPY [facility] Name/MRN: Jair Snyder ([id number]) Date: 02/27/2025 Request for "see today" note, [...] pt would "schedule" it in AM. Anthony Black, PT Hospitalist Progress Note - [facility] - [employer] ([facility]) 02/27/2025 9:03 AM [phone]: Please page me for patient care issues. [phone]: Please page [facility] Hospitalist - [facility] for any issues. [...] was bright red and it stopped 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 Adult diet Regular Dietary Orders (From admission, onward) Start Ordered 02/21/25 1021 Adult diet Regular Diet effective now Question: Diet type Answer: Regular 02/21/25 1021 I/O last 3 completed shifts: In: 750 (12.3 mL/kg) [P.O.:750] Out: 450 (7.4 mL/kg) [Urine:450 (0.2 mL/kg/hr)] Weight: 60.8 kg @IODETAILS@ @[id number]@ Medications: Continuous Meds[1] Scheduled Meds[2] Recent Labs [...] "CHOL" No results found for: "PHART", "PO2ART", "[id number]" Recent Labs 02/25/25 0028 02/25/25 2345 02/27/25 [...] DO Division of Hospitalist Medicine Inpatient Medical Services/[facility] [1] heparin, 5-30 Units/kg/hr, Last Rate: 18 Units/kg/hr (02/27/25 0722) [2] B complex-vitamin C-folic acid, 1 capsule, Oral, Daily metoprolol tartrate, 25 mg, Oral, BID pantoprazole, 40 mg, Oral, qAM AC piperacillin-tazobactam, 4,500 mg, IntraVENous, q8h QUEtiapine, 25 mg, Oral, Nightly sevelamer carbonate, 800 mg, Oral, TID WC warfarin, 2 mg, Oral, Once [facility] Anticoagulation Management Service ([facility]) Inpatient Warfarin Consult HPI: Jun Snyder is a 59 y.o. male admitted on 02/20/2025 for Hemoptysis [R04.2]. Medical History[1] Patient is on warfarin for mechanical AVR and has a goal INR 2.0 - 3.0. Patient was referred to [facility], but so far has been managed at facilities, most recently [facility]. Pt's home dose of warfarin is 1.5mg [...] over when discharged from facility. Fatuma Odonnell [facility] Consult Service is available daily [phone] via [employer] Secure Chat. [1] Past Medical History: Diagnosis Date Acute renal failure (ARF) ([facility]) 10/19/2019 Anemia 12/30/2021 Calcification of abdominal aorta ([facility]) 10/08/202309/[address] abd Diverticulosis 10/08/2023 ESRD on hemodialysis ([facility]) (HCC) 10/26/2019 Hemodialysis patient ([facility]) ([facility]) HTN (hypertension) 12/01/2022 Hypertension IgA nephropathy IgA nephropathy determined by biopsy of kidney 10/26/2019 Missed vaccination due to patient refusal 10/08/2023 Has a number of non-scientific based beliefs which interfere with his understanding and acceptance of the medical benefit of vaccination. Nonrheumatic aortic valve stenosis 10/08/2023 Paroxysmal A-fib ([facility]) ([facility]) 08/18/2023 Tobacco abuse 10/08/2023 Images from the original note were not included. OCCUPATIONAL THERAPY [facility] Initial Evaluation Name/MRN: Jair Snyder ([id number]) Evaluation Date: 02/26/2025 Date of : 1965 Admission Date: 02/20/2025 5:41 PM Age: 59 y.o. Room[facility]Bed: [facility] A Discharge Recommendation: Detention Facility Assessment IMPRESSION: Pt would benefit from [...] Problem List Diagnosis Date Noted Severe malnutrition ([facility]) ([facility]) 02/21/2025 Hemoptysis 02/20/2025 Complication of tracheostomy ([facility]) ([facility]) 01/19/2025 care home (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 01/12/2025 Acute respiratory failure with hypoxia ([facility]) [J96.01] 01/08/2025 Tracheostomy care ([facility]) [Z43.0] 01/08/2025 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[facility]) 01/08/2025 Sacral osteomyelitis ([facility]) ([facility]) 01/03/2025 Pneumonia of both lungs due to methicillin susceptible Staphylococcus aureus (MSSA) ([facility]) 01/01/2025 Leukocytosis 12/30/2024 Decubitus ulcer of sacral region, unstageable ([facility]) 12/30/2024 Peritonitis due to fungus ([facility]) 11/30/2024 History of abdominal surgery 11/30/2024 Leg DVT (deep venous thromboembolism), acute, left ([facility]) 11/30/2024 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, 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 of skin ([facility]) 11/30/2024 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 Pleural effusion 11/28/2024 Gastric ulceration 2024 Atrial flutter, unspecified type ([facility]) 10/03/2024 RSV (acute bronchiolitis due to respiratory syncytial virus) 10/03/2024 Diverticulosis 10/08/2023 Nonrheumatic aortic valve stenosis 10/08/2023 Calcification of abdominal aorta ([facility]) 10/08/2023 Missed vaccination due to patient refusal 10/08/2023 Tobacco abuse 10/08/2023 Alcohol use disorder in remission 10/08/2023 Paroxysmal A-fib ([facility]) ([facility]) 08/18/2023 HTN (hypertension) 12/01/2022 ESRD on hemodialysis ([facility] ([facility]) 10/26/2019 IgA nephropathy determined by biopsy of kidney 10/26/2019 BRBPR (bright red blood per rectum) 01/19/2025 Aortic stenosis 10/03/2024 Upper GI bleed 10/03/2024 S/P AVR 10/03/2024 Acute hypoxic respiratory failure ([facility]) 10/03/2024 Acute encephalopathy 10/03/2024 Pneumoperitoneum 10/03/2024 [...] of Care supervision is transferred to a [facility] Therapy Services Occupational Therapist. Goals and/or treatment plan was established in collaboration with patient/family/other representatives. Ro Sales MS, OTR/L [1] Past Medical History: Diagnosis Date Acute renal failure (ARF) ([facility]) 10/19/2019 Anemia 12/30/2021 Calcification of abdominal aorta ([facility]) 10/08/202309/[address] abd Diverticulosis 10/08/2023 ESRD on hemodialysis ([facility]) ([facility]) 10/26/2019 Hemodialysis patient ([facility] ([facility]) HTN (hypertension) 12/01/2022 Hypertension IgA nephropathy IgA nephropathy determined by biopsy of kidney 10/26/2019 Missed vaccination due to patient refusal 10/08/2023 Has a number of non-scientific based beliefs which interfere with his understanding and acceptance of the medical benefit of vaccination. Nonrheumatic aortic valve stenosis 10/08/2023 Paroxysmal A-fib ([facility]) ([facility]) 08/18/2023 Tobacco abuse 10/08/2023 [2] Past Surgical History: Procedure Laterality Date APPENDECTOMY CARDIAC CATHETERIZATION N/A 10/09/2024 Performed by Bob Watson MD at [facility] Cardiac Cath/EP Lab CARDIAC CATHETERIZATION Bilateral 11/01/2024 Performed by Bob Watson MD at [facility] Cardiac Cath/EP Lab CARDIAC CATHETERIZATION N/A 11/01/2024 Performed by Bob Watson MD at [facility] Cardiac Cath/EP Lab COLONOSCOPY N/A 01/24/2025 Performed by Chadd Davis MD at [facility] ENDOSCOPY FISTULAGRAM (HISTORICAL) Left 09/15/2021 LEFT UPPER ARM HX AV FISTULA CREATION IR EMBOLIZATION 10/14/2024 IR EMBOLIZATION 10/14/2024 [facility] SPECIAL PROCEDURES IR FISTULAGRAM 08/07/2022 IR FISTULAGRAM 08/07/2022 [facility] IR IMAGING TONSILLECTOMY (HISTORICAL) Hospitalist Progress [...] bilateral pleural effusions. 5. Cholelithiasis, and [place] kidneys. Seen by pulm service Started on IV abx Started on heparin gtt as well Interval History: pt feels ok Some dizziness at times No more bleeding issues 02/23 Pt awake Reports his PEG is uncomfortable-- wants removed if able No CP 02/24 Pt awake Some cough at times Sob better 02/25 Pt awake No sob today No CP 6/ Pt awake Pain controlled No CP Adult diet Regular @IODETAILS@ @[id number]@ Medications: Continuous Meds[1] Scheduled Meds[2] Recent Labs [...] any questions or concerns Bree Molina APRN PANTS PRESSER A-G WIRED MUSIC OPERATOR [facility] [phone] Pt seen and examined independently by me. I reviewed with, DENIA-SAMIA the medical history and the findings on physical examination. I discussed the patient s diagnosis and concur with the treatment plan as documented in his note. Please call [phone] or message me through Audiot[employer] with any questions or concerns. PULMONOLOGY CONSULT [...] from the original note were not included. [facility] Progress Note Jun Snyder [...] premedicated for pain with pain medication, per staff interpreter, prior to wound VAC dressing change. Wet [...] apply Betadine and allow to dry, leave PUBLIC RELATIONS ANALYST daily and PRN Right wrist Abrasion: -cleanse with antibacterial soap/water, leave PUBLIC RELATIONS ANALYST daily Sacral Stage 4 pressure injury [...] to follow Recommend to follow up at [facility] Outpatient wound care center after [...] History: Diagnosis Date Acute renal failure (ARF) ([facility]) 10/19/2019 Anemia 12/30/2021 Calcification of abdominal aorta ([facility]) 10/08/202309/[address] abd Diverticulosis 10/08/2023 ESRD on hemodialysis ([facility] ([facility]) 10/26/2019 Hemodialysis patient ([facility] ([facility]) HTN (hypertension) 12/01/2022 Hypertension IgA nephropathy IgA nephropathy determined by biopsy of kidney 10/26/2019 Missed vaccination due to patient refusal 10/08/2023 Has a number of non-scientific based beliefs which interfere with his understanding and acceptance of the medical benefit of vaccination. Nonrheumatic aortic valve stenosis 10/08/2023 Paroxysmal A-fib ([facility]) ([facility]) 08/18/2023 Tobacco abuse 10/08/2023 [2] Past Surgical History: Procedure Laterality Date APPENDECTOMY CARDIAC CATHETERIZATION N/A 10/09/2024 Performed by Bob Watson MD at [facility] Cardiac Cath/EP Lab CARDIAC CATHETERIZATION Bilateral 11/01/2024 Performed by Bob Watson MD at [facility] Cardiac Cath/EP Lab CARDIAC CATHETERIZATION N/A 11/01/2024 Performed by Bob Watson MD at [facility] Cardiac Cath/EP Lab COLONOSCOPY N/A 01/24/2025 Performed by Chadd Davis MD at [facility] ENDOSCOPY FISTULAGRAM (HISTORICAL) Left 09/15/2021 LEFT UPPER ARM HX AV FISTULA CREATION IR EMBOLIZATION 10/14/2024 IR EMBOLIZATION 10/14/2024 [facility] SPECIAL PROCEDURES IR FISTULAGRAM 08/07/2022 IR FISTULAGRAM 08/07/2022 [facility] IR IMAGING TONSILLECTOMY (HISTORICAL) [3] Family History [...] needed (PRN constipation). [DISCONTINUED] epoetin rowan-epbx (Retacrit) 63226 UNIT/ML injection Inject 0.79 mL (7,900 Units) under the skin 1 (one) time per week. (Patient not taking: Reported on 02/21/2025) [DISCONTINUED] pantoprazole (ProtoNix) 40 MG injection Infuse 40 mg into a venous catheter 2 times daily. Cosigned by Ahsan Gill DO at 02/26/2025 4:59 PM EDT [facility] Anticoagulation Management Service ([facility]) Inpatient Warfarin Consult HPI: Jun Snyder is a 59 y.o. male admitted on 02/20/2025 for Hemoptysis [R04.2]. Medical History[1] Patient is on warfarin for mechanical AVR and has a goal INR 2.0 - 3.0. Patient was referred to [facility], but so far has been managed at facilities, most recently [facility]. Pt's home dose of warfarin is 1.5mg [...] RPh [facility] Consult Service is available daily [phone] via Audiotoniq Secure Chat. [1] Past Medical History: Diagnosis Date Acute renal failure (ARF) ([facility]) 10/19/2019 Anemia 12/30/2021 Calcification of abdominal aorta ([facility]) 10/08/202309/[address] abd Diverticulosis 10/08/2023 ESRD on hemodialysis [place] ([facility]) 10/26/2019 Hemodialysis patient ([facility]) ([facility]) HTN (hypertension) 12/01/2022 Hypertension IgA nephropathy IgA nephropathy determined by biopsy of kidney 10/26/2019 Missed vaccination due to patient refusal 10/08/2023 Has a number of non-scientific based beliefs which interfere with his understanding and acceptance of the medical benefit of vaccination. Nonrheumatic aortic valve stenosis 10/08/2023 Paroxysmal A-fib ([facility]) ([facility]) 08/18/2023 Tobacco abuse 10/08/2023 Nephrology Progress [...] original note were not included. PHYSICAL THERAPY [facility] Initial Evaluation Name/MRN: Jair Snyder ([id number]) Evaluation Date: 02/25/2025 Date of : 1965 Admission Date: 02/20/2025 5:41 PM Age: 59 y.o. Room/Bed: [facility] A Discharge Recommendation: Detention Facility Equipment Needed: No Assessment IMPRESSION: Patient [...] 01/19/2025 Complication of tracheostomy (CMS/HCC) (HCC) 01/19/2025 care home (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 01/12/2025 Acute respiratory failure with hypoxia ([facility]) [J96.01] 01/08/2025 Tracheostomy care ([facility]) [Z43.0] 01/08/2025 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[facility]) 01/08/2025 Sacral osteomyelitis ([facility]) ([facility]) 01/03/2025 Pneumonia of both lungs due to methicillin susceptible Staphylococcus aureus (MSSA) ([facility]) 01/01/2025 Leukocytosis 12/30/2024 Decubitus ulcer of sacral region, unstageable ([facility]) 12/30/2024 Peritonitis due to fungus ([facility]) 11/30/2024 History of abdominal surgery 11/30/2024 Leg DVT (deep venous thromboembolism), acute, left ([facility]) 11/30/2024 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, 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 of skin ([facility]) 11/30/2024 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 Pleural effusion 11/28/2024 Gastric ulceration 2024 Atrial flutter, unspecified type ([facility]) 10/03/2024 RSV (acute bronchiolitis due to respiratory syncytial virus) 10/03/2024 Diverticulosis 10/08/2023 Nonrheumatic aortic valve stenosis 10/08/2023 Calcification of abdominal aorta ([facility]) 10/08/2023 Missed vaccination due to patient refusal 10/08/2023 Tobacco abuse 10/08/2023 Alcohol use disorder in remission 10/08/2023 Paroxysmal A-fib ([facility] ([facility]) 08/18/2023 HTN (hypertension) 12/01/2022 ESRD on hemodialysis ([facility]) ([facility]) 10/26/2019 IgA nephropathy determined by biopsy of kidney 10/26/2019 BRBPR (bright red blood per rectum) 01/19/2025 Aortic stenosis 10/03/2024 Upper GI bleed 10/03/2024 S/P AVR 10/03/2024 Acute hypoxic respiratory failure ([facility]) 10/03/2024 Acute encephalopathy 10/03/2024 Pneumoperitoneum 10/03/2024 [...] of Care supervision is transferred to a [facility] Therapy Services Physical Therapist. Goals and/or treatment plan was established in collaboration with patient/family/other representatives. [1] Past Medical History: Diagnosis Date Acute renal failure (ARF) ([facility]) 10/19/2019 Anemia 12/30/2021 Calcification of abdominal aorta ([facility]) 10/08/202309/[address] abd Diverticulosis 10/08/2023 ESRD on hemodialysis ([facility] ([facility]) 10/26/2019 Hemodialysis patient ([facility]) ([facility]) HTN (hypertension) 12/01/2022 Hypertension IgA nephropathy IgA nephropathy determined by biopsy of kidney 10/26/2019 Missed vaccination due to patient refusal 10/08/2023 Has a number of non-scientific based beliefs which interfere with his understanding and acceptance of the medical benefit of vaccination. Nonrheumatic aortic valve stenosis 10/08/2023 Paroxysmal A-fib ([facility]) ([facility]) 08/18/2023 Tobacco abuse 10/08/2023 [2] Past Surgical History: Procedure Laterality Date APPENDECTOMY CARDIAC CATHETERIZATION N/A 10/09/2024 Performed by Bob Watson MD at [facility] Cardiac Cath/EP Lab CARDIAC CATHETERIZATION Bilateral 11/01/2024 Performed by Bob Watson MD at [facility] Cardiac Cath/EP Lab CARDIAC CATHETERIZATION N/A 11/01/2024 Performed by Bob Watson MD at [facility] Cardiac Cath/EP Lab COLONOSCOPY N/A 01/24/2025 Performed by Chadd Davis MD at [facility] ENDOSCOPY FISTULAGRAM (HISTORICAL) Left 09/15/2021 LEFT UPPER ARM HX AV FISTULA CREATION IR EMBOLIZATION 10/14/2024 IR EMBOLIZATION 10/14/2024 [facility] SPECIAL PROCEDURES IR FISTULAGRAM 08/07/2022 IR FISTULAGRAM 08/07/2022 [facility] IR IMAGING TONSILLECTOMY (HISTORICAL) Hospitalist Progress [...] bilateral pleural effusions. 5. Cholelithiasis, and [place] kidneys. Seen by pulm service Started on IV abx Started on heparin gtt as well Interval History: pt feels ok Some dizziness at times No more bleeding issues 02/23 Pt awake Reports his PEG is uncomfortable-- wants removed if able No CP 02/24 Pt awake Some cough at times Sob better 02/25 Pt awake No sob today No CP Adult diet Regular @IODETAILS@ @[email or web address]@ Medications: Continuous Meds[1] Scheduled Meds[2] Recent Labs [...] TID WC warfarin, 1.5 mg, Oral, Once [facility] Anticoagulation Management Service ([facility]) Inpatient Warfarin Consult HPI: Jun Snyder is a 59 y.o. male admitted on 02/20/2025 for Hemoptysis [R04.2]. Medical History[1] Patient is on warfarin for mechanical AVR and has a goal INR 2.0 - 3.0. Patient was referred to [facility], but so far has been managed at facilities, most recently [facility]. Pt's home dose of warfarin is 1.5mg [...] PharmD [facility] Consult Service is available daily [phone] via Audiotoni[employer] Secure Chat. [1] Past Medical History: Diagnosis Date Acute renal failure (ARF) ([facility]) 10/19/2019 Anemia 12/30/2021 Calcification of abdominal aorta ([facility]) 10/08/202309/[address] abd Diverticulosis 10/08/2023 ESRD on hemodialysis ([facility]) ([facility]) 10/26/2019 Hemodialysis patient ([facility]) ([facility]) HTN (hypertension) 12/01/2022 Hypertension IgA nephropathy IgA nephropathy determined by biopsy of kidney 10/26/2019 Missed vaccination due to patient refusal 10/08/2023 Has a number of non-scientific based beliefs which interfere with his understanding and acceptance of the medical benefit of vaccination. Nonrheumatic aortic valve stenosis 10/08/2023 Paroxysmal A-fib (CMS/HCC) (HCC) 08/18/2023 Tobacco abuse 10/08/2023 Vancomycin therapy has been discontinued by Hussani Quintana on 02/24. Thank you for the consult. Pharmacy signing off for vancomycin dosing. Laura DumontD, Date: 02/24/25 Time: 4:08 PM Images from the original note were not included. [facility] - Infectious Diseases Attending Progress Note [...] clean Labs: Recent Labs 02/22/25 0100 02/23/25 003 NA 132* 135* K 3.4* [...] bilateral pleural effusions. 5. Cholelithiasis, and [place] kidneys. Seen by pulm service Started on IV abx Started on heparin gtt as well Interval History: pt feels ok Some dizziness at times No more bleeding issues 02/23 Pt awake Reports his PEG is uncomfortable-- wants removed if able No CP 02/24 Pt awake Some cough at times Sob better Adult diet Regular @IODETAILS@ @[email or web address]@ Medications: Continuous Meds[1] Scheduled Meds[2] Recent Labs [...] for: "TRIG", "HDL", "LDLCALC", "CHOL" Recent Labs 02/22/25 0100 02/23/25 0032 02/24/25 0010 INR 1.4* 1.3* 1.3* No [...] intermittent dosing (placeholder), , Other, RX Placeholder [facility] Anticoagulation Management Service ([facility]) Inpatient Warfarin Consult HPI: Jun Snyder is a 59 y.o. male admitted on 02/20/2025 for Hemoptysis [R04.2]. Medical History[1] Patient is on warfarin for mechanical AVR and has a goal INR 2.0 - 3.0. Patient was referred to [facility], but so far has been managed at facilities, most recently [facility]. Pt's home dose of warfarin is 1.5mg [...] PharmD [facility] Consult Service is available daily [phone] via Aud[employer] Secure Chat. [1] Past Medical History: Diagnosis Date Acute renal failure (ARF) ([facility]) 10/19/2019 Anemia 12/30/2021 Calcification of abdominal aorta ([facility]) 10/08/202309/[address] abd Diverticulosis 10/08/2023 ESRD on hemodialysis ([facility] ([facility]) 10/26/2019 Hemodialysis patient ([facility] ([facility]) HTN (hypertension) 12/01/2022 Hypertension IgA nephropathy IgA nephropathy determined by biopsy of kidney 10/26/2019 Missed vaccination due to patient refusal 10/08/2023 Has a number of non-scientific based beliefs which interfere with his understanding and acceptance of the medical benefit of vaccination. Nonrheumatic aortic valve stenosis 10/08/2023 Paroxysmal A-fib ([facility]) ([facility]) 08/18/2023 Tobacco abuse 10/08/2023 Images from the original note were not included. [facility] - Infectious Diseases Attending Progress Note Subjective: [...] from the original note were not included. [facility], Pul[facility] Medicine [phone] PULMONARY PROGRESS NOTE. Patient - Jun Snyder, Age - 59 y.o. - 1965 Room Number - [id number] A Consulting - Ramón Romano MD Primary [...] CBC: Recent Labs 02/21/25 0053 02/22/25 0100 02/23/2531 WBC 7.0 9.0 8.6 HGB 8.3* 7.8* 8.6* HCT 25.7* 24.5* 27.9* PLT 316 282 316 BMP: Recent Labs 02/21/255202/22/250 02/23/2531 NA 131* 132* 135* K 3.1* 3.4* [...] PM EDT I have personally performed a mcdo-xq-lunu diagnostic evaluation on this patient on date of service 02/23/25. History, labs, imaging studies, and electronic medical record have been reviewed by me. This note documented by the [x]customs house broker []ARMIN reflects my history, exam, and medical [...] weekend. Please reach out with any concerns [facility] Anticoagulation Management Service ([facility]) Inpatient Warfarin Consult HPI: Jun Snyder is a 59 y.o. male admitted on 02/20/2025 for Hemoptysis [R04.2]. Medical History[1] Patient is on warfarin for mechanical AVR and has a goal INR 2.0 - 3.0. Patient was referred to [facility], but so far has been managed at facilities, most recently [facility]. Pt's home dose of warfarin is 1.5mg [...] over when discharged from facility. Fatuma Odonnell [facility], PharmD [facility] Consult Service is available daily [phone] via Audiotoniq Secure Chat. [1] Past Medical History: Diagnosis Date Acute renal failure (ARF) ([facility]) 10/19/2019 Anemia 12/30/2021 Calcification of abdominal aorta ([facility]) 10/08/202309/[address] abd Diverticulosis 10/08/2023 ESRD on hemodialysis ([facility]) (HCC) 10/26/2019 Hemodialysis patient ([facility]) ([facility]) HTN (hypertension) 12/01/2022 Hypertension IgA nephropathy [...] bilateral pleural effusions. 5. Cholelithiasis, and [place] kidneys. Seen by pulm service Started on IV abx Started on heparin gtt as well Interval History: pt feels ok Some dizziness at times No more bleeding issues 02/23 Pt awake Reports his PEG is uncomfortable-- wants removed if able No CP Adult diet Regular @IODETAILS@ @[email or web address]@ Medications: Continuous Meds[1] Scheduled Meds[2] Recent Labs 02/21/255202/22/259902/23/25 003 WBC 7.0 9.0 8.6 HGB 8.3* 7.8* 8.6* PLT 316 282 316 Recent Labs 02/21/255202/22/259902/23/25 003 NA 131* 132* 135* K 3.1* 3.4* 4.1 CL 91* 94* 99 CO2 BUN 29* 36* 21 CREATININE 2.89* 3.99* 2.78* GLUCOSE 74 121* 110* Recent Labs 02/21/255202/22/259902/23/25 003 AST 39* 35* 37* ALT 8 9 10 BILITOT 0.8 0.6 0.6 ALKPHOS 120 120 136 No results found for: "TRIG", "HDL", "LDLCALC", "CHOL" Recent Labs 02/20/25 1825 02/22/259902/23/25 003 INR [...] from the original note were not included. [facility] Wound Care/NPWT Progress Note Jun Snyder [...] for pain with PO pain medication, per staff interpreter, prior to wound VAC dressing change. Wet [...] to follow Recommend to follow up at [facility] Outpatient wound care center after [...] History: Diagnosis Date Acute renal failure (ARF) ([facility]) 10/19/2019 Anemia 12/30/2021 Calcification of abdominal aorta ([facility]) 10/08/202309/[address] abd Diverticulosis 10/08/2023 ESRD on hemodialysis ([facility] ([facility]) 10/26/2019 Hemodialysis patient ([facility] ([facility]) HTN (hypertension) 12/01/2022 Hypertension IgA nephropathy IgA nephropathy determined by biopsy of kidney 10/26/2019 Missed vaccination due to patient refusal 10/08/2023 Has a number of non-scientific based beliefs which interfere with his understanding and acceptance of the medical benefit of vaccination. Nonrheumatic aortic valve stenosis 10/08/2023 Paroxysmal A-fib ([facility]) ([facility]) 08/18/2023 Tobacco abuse 10/08/2023 [2] Past Surgical History: Procedure Laterality Date APPENDECTOMY CARDIAC CATHETERIZATION N/A 10/09/2024 Performed by Bob Watson MD at [facility] Cardiac Cath/EP Lab CARDIAC CATHETERIZATION Bilateral 11/01/2024 Performed by Bob Watson MD at [facility] Cardiac Cath/EP Lab CARDIAC CATHETERIZATION N/A 11/01/2024 Performed by Bob Watson MD at [facility] Cardiac Cath/EP Lab COLONOSCOPY N/A 01/24/2025 Performed by Chadd Davis MD at [facility] ENDOSCOPY FISTULAGRAM (HISTORICAL) Left 09/15/2021 LEFT UPPER ARM HX AV FISTULA CREATION IR EMBOLIZATION 10/14/2024 IR EMBOLIZATION 10/14/2024 [facility] SPECIAL PROCEDURES IR FISTULAGRAM 08/07/2022 IR [...] needed (PRN constipation). [DISCONTINUED] epoetin rowan-epbx (Retacrit) 16093 UNIT/ML injection Inject 0.79 mL (7,900 Units) [...] lower extremity edema Data: Labs: Recent Labs 02/21/255202/22/250 02/23/25 0032 WBC 7.0 [...] any questions or concerns Bree Molina APRN PANTS PRESSER A-G WIRED MUSIC OPERATOR [facility] [phone] Pt seen and examined independently by me. I reviewed with FLOWER CHENILLER-PANTS PRESSER the medical history and the findings on physical examination. I discussed the patient s diagnosis and concur with the treatment plan as documented in his note. Please call [phone] or message me through Audiotoniq with any questions or concerns. Pharmacy Managed [...] [] CrCl ml/min (Cockcroft-Gault, if BLOSSOM, no TRACK LAYING SUPERVISOR) Infectious Diagnosis: Pneumonia (target level = 15-20 [...] 4:36 PM Daryn Nolasco PharmD (available on [email or web address]) Images from the original note were not included. [facility], Pulmonary Medicine [phone] PULMONARY PROGRESS NOTE. Patient - Jun Snyder, Age - 59 y.o. - 1965 Room Number - [id number] A Consulting - Ramón Romano MD Primary Care Physician - Leilaninilda Troncoso Date of Admission - 02/20/2025 5:41 [...] alert. LABS and Studies: CBC: Recent Labs 02/20/25 18202/21/255202/22/25 010 WBC 9.4 7.0 9.0 HGB 8.7* 8.3* 7.8* HCT 26.8* 25.7* 24.5* PLT 312 316 282 BMP: Recent Labs 02/20/25 18202/21/255202/22/25 010 NA 133* 131* 132* K 3.1* 3.1* 3.4* CL 92* 91* 94* CO2 BUN 29* 29* 36* CREATININE 2.57* 2.89* 3.99* GLUCOSE 80 74 121* CALCIUM 9.6 9.3 9.2 MG -- 2.2 2.2 PHOS -- 2.0* 3.2 HEPATIC: Recent Labs 02/21/255202/22/25 010 AST 39* 35* ALT 8 9 BILITOT 0.8 0.6 ALKPHOS 120 120 LACTATE: No lab exists for component: "LACTA" PROCALCITONIN: Recent Labs 05/28/25 0053 PROCAL 0.68* TROPONIN: No results for [...] PM EDT I have personally performed a qoew-lk-ltbu diagnostic evaluation on this patient on date of service 02/22/2025. History, labs, imaging studies, and electronic medical record have been reviewed by me. This note documented by the [x]customs house broker []ARMIN reflects my history, exam, and medical [...] bilateral pleural effusions. 5. Cholelithiasis, and [place] kidneys. Seen by pulm service Started on IV abx Started on heparin gtt as well Interval History: pt feels ok Some dizziness at times No more bleeding issues Adult diet Regular @IODETAILS@ @[email or web address]@ Medications: Continuous Meds[1] Scheduled Meds[2] Recent Labs [...] for: "TRIG", "HDL", "LDLCALC", "CHOL" Recent Labs 02/20/25182402/22/25 0100 INR 1.4* 1.4* [...] original note were not included. OCCUPATIONAL THERAPY [facility] Name/MRN: Jair Snyder ([id number]) Date: 02/22/2025 PT refusing to participate in [...] any questions or concerns Bree Molina APRN PANTS PRESSER A-G WIRED MUSIC OPERATOR [facility] [phone] Pt seen and examined independently by me. I reviewed with FLOWER CHENILLER-PANTS PRESSER the medical history and the findings on physical examination. I discussed the patient s diagnosis and concur with the treatment plan as documented in his note. Please call [phone] or message me through Audiotoniq with any questions or concerns. Images from the original note were not included. PHYSICAL THERAPY [facility] Name/MRN: Jair Snyder ([id number]) Date: 02/22/2025 Pt declined to work with therapy at this time, stating he wants to wait until after the wound vac is put on. Will reattempt at a later date. Sangeeta Sarabia, PT Images from the original note were not included. PHYSICAL THERAPY [facility] Name/MRN: Jair Snyder ([id number]) Date: 02/21/2025 Pt declined to work with [...] Time 17 min documented in this encounter [facility] 03-05-2025 Miscellaneous Notes Formattin g of this note might be different from the original. Auth is now pending with [facility] for [facility]. Auth ID: [id number] . The insurance needs PT and OT notes- as PT note yesterday incomplete , they are both requested . Confirmed pickup time of 4:00pm on 03/05/25 by transport [employer] at phone number [phone]. Location of facility drop off is [facility]. Facility notified via Careport, [facility] notified on secure chat. Discharge med list transmitted to [facility] via Careport per TCC request. Tcc requested transport to be set up at 4 PM to permit auth to be ongoing- facility can accept- just requested it be started today - plumbing mechanic notified, and discharge orders faxed, will confirm in secure chat the time and notify the tx team , orders in [facility] , rosendo done, return to [facility] . TCC requested OT notes this am - for ongoing auth - PT INR is now good 1.8 , notified facility want to send today , auth was only good thru 03/02 notified CASING RUNNING MACHINE TENDER to confirm about auth requirements again today .. Transport in will call, wound VAC to go with patient, discharge orders in [facility] , LIVES at facility LT - the facility wants to skill- [facility] is working with them to have him discharge later today - transport in will call . Coil Shaper notified to send orders and med rec [...] Note DC plan is return to ECF/SNF- [facility], no auth needed to return however facility [...] Progress Note 03/03/25 1025 Rapid Rounds Attendance Laborer Syrup Machine Planned Discharge Disposition Halfway ([facility]- return, is LTC no AUTH needed) Today we still await Other (INR >or = 1.8 per [facility]) Clinical stability Attending completion of discharge workflow Additional Comments: We have a skilled AUTH that expires midnight tonight, however facility will still accept without AUTH per previous CM notes This Laborer Syrup Machine was tasked to follow this patient through the weekend. Chart and Careport were reviewed. INR this am is 1.6, subtherapeutic. Facility updated. Transportation is in will call. territory manager will continue to follow for transitional [...] [facility] TCC request. Per [...] labs post at [facility] to follow . Coil Shaper tasked to send wound vac and clinicals- requested PT/OT notes for ongoing auth . Rosendo done- transport in will call to return to [facility] where he [facility] facility did want to [...] Roundtrip in will call per TCC. Tasked CASING RUNNING MACHINE TENDER to set up transport in will call, [...] Need updated therapy to start auth for [facility]. [facility]. Continues on IV antibiotics. On a heparin [...] therapy notes. Want to skill him at [facility]. Started on IV antibiotics for aspiration pneumonia. Continues on a heparin gtt. . Updated notes sent to [facility] via Careport per [facility] request. Await review and response regarding [...] pressure injuries/wounds this shift so RN SHAQ [place] [facility] would prefer to SKILL patient- LTC. [...] Interventions Goal: Promote nutritional intake Outcome: Progressing [facility] would prefer to SKILL patient- LTC. + bedhold will return - has woundVAC and ivab on hep gtt, not ready for discharge , plumbing mechanic tasked to send clinicals facility is updated . Updated notes sent to [facility] via [facility] per [facility] request. Await [...] intake Outcome: Not Progressing Has dialysis at [facility].. Pt came to ER from dialysis due to hemoptysis. Had a trach removed 01/19. He is a bed hold at [facility]. They would like to skill him if able. Unable to tell me where he went to dialysis this am, asking facility. Referral placed to [facility] request. Await review and response regarding [...] of blood components. documented in this encounter [facility] 03-05-2025 Note [facility] 03-05-2025 Hospital course Narrative Images from the original note were not included. Hospitalist Discharge Summary - [facility] - Acute Care [facility] ([facility]) Jun Snyder : 1965 Admit date: 02/20/2025 Discharge date: 03/05/2025 Admitting Physician: Bettye Pierre MD Primary Care Physician: Leilani Troncoso Recommended Follow-up: [facility] [address] [facility] [address] [facility] [address] [place] [address] [facility] [address] Call Call and schedule appointment in [...] "CHOL" No results found for: "PHART", "PO2ART", "DLQ5OBP" Recent Labs 03/04/25 0156 03/04/25 0946 03/05/25 0343 INR 1.5* 1.6* 1.8* No results for input(s): "DDIMER" in the last 72 hours. No results found for: "HGBA1C" No results found for: "TSH" Urine Culture: No results found for this or any previous visit. Imaging: CTA chest angiogram w and/or wo IV contrast Result Date: 02/20/2025 Patient Name: JUN SNYDER : 1965 [facility]#: [id number] Exam Date/Time: 02/20/2025 19:01 Procedure: CT CHEST [...] bilateral pleural effusions. 5. Cholelithiasis, and [place] kidneys. Report Dictated on Electronically Signed By: [...] MG/5ML suspension Commonly known as: Milk of Magngela naloxone in sodium chloride (PF) injection injection [...] Your Medications These medications were sent to [facility] [address] [place] [id number] metoprolol tartrate 25 MG tablet pantoprazole 40 MG EC tablet QUEtiapine 25 MG tablet sevelamer carbonate 800 MG tablet You can get these medications from any pharmacy Bring a paper prescription for each of these medications oxyCODONE 5 MG immediate release tablet Signed: Anthony Hurtado DO 03/05/2025, 9:30 AM documented in this encounter [facility] 03-03-2025 Nurse Note Patient Name: Jun Snyder Patient : 1965 Acct: [id number] Date of Admission: 02/20/2025 Room/Bed: W3334/3334 A Code Status: Full Code Allergies: Allergies[1] [...] - Before each treatment: Dialysis Machine No.: [id number] RO Machine Number: [id number] Dialyzer Lot No.: [id number] Tubing Lot Number: [id number] All Connections Secure: Yes Venous Parameters Set: Yes Arterial Parameters Set: Yes NS Bag: Yes Saline Line Double Clamped: Yes Dialyzer: Nipro Prime Volume (mL): 200 mL RO Machine Number: [id number] RO Machine Log Sheet Completed: Yes Machine Alarm Self Test: Completed, Passed (03/03/25 0740) Air Foam Detector: Tested, Proper Function, pH Reading Extracorporeal Circuit Tested for Integrity: Yes Machine Conductivity: 13.7 Manual Conductivity: 13.6 Manual Ph: 7 Bleach Test (Neg): Yes Bath Temperature: 36 C (96.8 F) Conductivity Meter Serial #: [id number] Machine Functioning Alarm Free? Yes Dialysis Bath: K+ (Potassium): 2 Ca+ (Calcium): 2.5 Na+ (Sodium): 137 HCO3 (Bicarb): 35 Bicarbonate Concentrate Lot No.: [id number] Acid Concentrate Lot No.: [id number] Chlorine Testing - Before each treatment and [...] mmHg 90 600 Yes pt resting, removed 19203/03/25 1215 350 mL/min 830 ml/hr -70 mmHg 170 mmHg 80 600 Yes pt sleeping, removed 214303/03/25 1230 350 mL/min 20313 ml/hr -70 mmHg 170 mmHg 80 600 [...] Active Problem List Diagnosis Anemia Paroxysmal A-fib ([facility]) (HCC) HTN (hypertension) ESRD on hemodialysis ([facility]) ([facility]) IgA nephropathy determined by biopsy of [...] (CMS/HCC) (HCC) Acute respiratory failure with hypoxia ([facility]) [J96.01] Tracheostomy care ([facility]) [Z43.0] 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[facility]) 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 Please see eMAR for administration Patient Name: Jun Snyder Patient : 1965 Acct: [id number] Date of Admission: 02/20/2025 Room/Bed: W3-334/W3-334 A Code Status: Full Code Allergies: Allergies[1] Diagnosis: Problem List[2] Treatment: Hemodilaysis 2:1 Priority: Routine Location: Acute Room Diabetic: No NPO: No Isolation Precautions: Dialysis Consent for Treatment Verified: Yes Blood Consent Verified: Not Applicable ICEBOAT: Identify, Consent, Equipment, HepB Status, Orders Complete, Access Verified, Timeliness (o2 and suction functional @ bedside) Second Clinician Verifying: W. Steinlechner, RN Time out performed prior to access [...] - Before each treatment: Dialysis Machine No.: [id number] RO Machine Number: [id number] Dialyzer Lot No.: [id number] Tubing Lot Number: [id number] All Connections Secure: Yes Venous Parameters Set: Yes Arterial Parameters Set: Yes NS Bag: Yes Saline Line Double Clamped: Yes Dialyzer: Nipro Prime Volume (mL): 200 mL RO Machine Number: [id number] RO Machine Log Sheet Completed: Yes Machine Alarm Self Test: Completed, Passed (03/01/25 0749) Air Foam Detector: Tested, Proper Function, pH Reading Extracorporeal Circuit Tested for Integrity: Yes Machine Conductivity: 13.6 Manual Conductivity: 13.5 Manual Ph: 7.2 Bleach Test (Neg): Yes Bath Temperature: 36 C (96.8 F) Conductivity Meter Serial #: [id number] Machine Functioning Alarm Free? Yes Dialysis Bath: K+ (Potassium): 3 Ca+ (Calcium): 2.5 Na+ (Sodium): 137 HCO3 (Bicarb): 35 Bicarbonate Concentrate Lot No.: [id number] Acid Concentrate Lot No.: [id number] Chlorine Testing - Before each treatment and every 4 hours: Time On: 0832 Time Off: 1131 Treatment Goal: 2L Weight Height: 177.8 cm [...] Active Problem List Diagnosis Anemia Paroxysmal A-fib ([facility]) ([facility]) HTN (hypertension) ESRD on hemodialysis ([facility]) ([facility]) IgA nephropathy determined by biopsy of kidney Diverticulosis Nonrheumatic aortic valve stenosis Calcification of abdominal aorta ([facility]) Missed vaccination due to patient refusal Tobacco abuse Alcohol use disorder in remission Atrial flutter, unspecified type ([facility]) RSV (acute bronchiolitis due to respiratory syncytial virus) Aortic stenosis Upper GI bleed S/P AVR Acute hypoxic respiratory failure ([facility]) Acute encephalopathy Pneumoperitoneum Gastric ulceration Severe malnutrition ([facility]) ([facility]) Pleural effusion Peritonitis due to fungus ([facility]) History of abdominal surgery Leg DVT (deep venous thromboembolism), acute, left ([facility]) 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, 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 of skin ([facility]) Tracheostomy dependence ([facility]) Leukocytosis Decubitus ulcer of sacral region, unstageable (HCC) Pneumonia of both lungs due to methicillin susceptible Staphylococcus aureus (MSSA) ([facility]) Sacral osteomyelitis (CMS/HCC) (HCC) Acute respiratory failure with hypoxia ([facility]) [J96.01] Tracheostomy care ([facility]) [Z43.0] 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[facility]) 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 Nurse manager database notified maintenance of the problem, and also [...] aides cannot leave the floor to pick up operator his packages, and pt was agreeable to this as well. Patient Name: Jun Snyder Patient : 1965 Acct: [id number] Date of Admission: 02/20/2025 Room/Bed: W3334/W334 A [...] (0) 3 Regular None (Room air) Clear [place] Warm;Dry;No swelling Soft Active 02/27/25 1202 Alert (0) 3 Regular None (Room air) Clear [place] Warm Soft -- 02/27/25 1240 -- -- -- -- Diminished Ecchymosis -- -- -- Labs Lab Results Component Value Date/Time WBC 7.9 02/27/2025 0010 HGB 8.6 (L) 02/27/2025 0010 HGB 9.4 11/11/2024 0230 HCT 28.8 (L) 02/27/2025 0010 PLT 302 02/27/2025 0010 NA 135 (L) 02/23/2025 0032 K 4.1 02/23/202531 CL 99 02/23/20252 CO2 25 02/23/2025 0032 BUN 21 02/23/202531 CREATININE 2.78 (H) 02/23/202531 CREATININE 9.99 (H) 10/27/2019 0545 CALCIUM 9.2 02/23/202531 PHOS 2.6 02/23/202531 IV Drips and Rate/Dose Continuous Meds[3] Safety - Before each treatment: Dialysis Machine No.: [id number] RO Machine Number: [id number] Dialyzer Lot No.: [id number] Tubing Lot Number: [id number] All Connections Secure: Yes Venous Parameters Set: Yes Arterial Parameters Set: Yes NS Bag: Yes Saline Line Double Clamped: Yes Dialyzer: Nipro Prime Volume (mL): 200 mL RO Machine Number: [id number] RO Machine Log Sheet Completed: Yes Machine Alarm Self Test: Completed, Passed (02/27/25744) Air Foam Detector: Tested, Proper Function, pH Reading Extracorporeal Circuit Tested for Integrity: Yes Machine Conductivity: 13.7 Manual Conductivity: 143.6 Manual Ph: 7 Bleach Test (Neg): Yes Bath Temperature: 36 C (96.8 F) Conductivity Meter Serial #: [id number] Machine Functioning Alarm Free? Yes Dialysis Bath: K+ (Potassium): 3 Ca+ (Calcium): 2.5 Na+ (Sodium): 137 HCO3 (Bicarb): 35 Bicarbonate Concentrate Lot No.: [id number] Acid Concentrate Lot No.: [id number] Chlorine Testing - Before each treatment and every 4 hours: Time On: 0843 Time Off: 1143 Treatment Goal: 2L Weight Height: 177.8 cm (5' 10") (02/23/251412) Weight: 60.8 kg (134 lb) (02/23/251412) [...] Active Problem List Diagnosis Anemia Paroxysmal A-fib ([facility]) ([facility]) HTN (hypertension) ESRD on hemodialysis ([facility]) ([facility]) IgA nephropathy determined by biopsy of kidney Diverticulosis Nonrheumatic aortic valve stenosis Calcification of abdominal aorta ([facility]) Missed vaccination due to patient refusal Tobacco abuse Alcohol use disorder in remission Atrial flutter, unspecified type ([facility]) RSV (acute bronchiolitis due to respiratory syncytial virus) Aortic stenosis Upper GI bleed S/P AVR Acute hypoxic respiratory failure ([facility]) Acute encephalopathy Pneumoperitoneum Gastric ulceration Severe malnutrition ([facility]) ([facility]) Pleural effusion Peritonitis due to fungus ([facility]) History of abdominal surgery Leg DVT (deep venous thromboembolism), acute, left ([facility]) 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, 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 of skin ([facility]) Tracheostomy dependence ([facility]) Leukocytosis Decubitus ulcer of sacral region, unstageable (HCC) Pneumonia of both lungs due to methicillin susceptible Staphylococcus aureus (MSSA) (HCC) Sacral osteomyelitis (CMS/HCC) (HCC) Acute respiratory failure with hypoxia (HCC) [J96.01] Tracheostomy care ([facility]) [Z43.0] 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 2322- Notified Dr. Hathaway of patient complaint of SOB and worsening chest pain that he described as dull and tight. Vitals WDL. STAT EKG ordered, patient given Nitrostat, and troponin sent down. 2330- Notified TRACK LAYING SUPERVISOR to assess the patient. Patient Name: Jun Snyder Patient : 1965 Acct: [id number] Date of Admission: 02/20/2025 Room/Bed: [facility] A Code Status: Full Code [...] WBC 8.6 02/23/2025 0032 HGB 8.6 (L) 02/23/202531 HGB 9.4 11/11/2024 0230 HCT 27.9 (L) 02/23/202531 PLT 316 02/23/202531 NA 135 (L) 02/23/202531 K 4.1 02/23/202531 CL 99 02/23/202531 CO2 25 02/23/202531 BUN 21 02/23/202531 CREATININE 2.78 (H) 02/23/202531 CREATININE 9.99 (H) 10/27/2019 0545 CALCIUM 9.2 02/23/202531 PHOS 2.6 02/23/202531 IV Drips and Rate/Dose Continuous Meds[3] Safety - Before each treatment: Dialysis Machine No.: [id number] RENY Machine Number: [id number] Dialyzer Lot No.: [id number] Tubing Lot Number: [id number] All Connections Secure: Yes Venous Parameters Set: Yes Arterial Parameters Set: Yes NS Bag: Yes Saline Line Double Clamped: Yes Dialyzer: Nipro Prime Volume (mL): 200 mL RO Machine Number: [id number] RO Machine Log Sheet Completed: Yes Machine Alarm Self Test: Completed, Passed (02/24/25 08) Air Foam Detector: Tested, Proper Function, pH Reading Extracorporeal Circuit Tested for Integrity: Yes Machine Conductivity: 13.7 Manual Conductivity: 13.7 Manual Ph: 7 Bleach Test (Neg): Yes Bath Temperature: 36 C (96.8 F) Conductivity Meter Serial #: [id number] Machine Functioning Alarm Free? Yes Dialysis Bath: K+ (Potassium): 3 Ca+ (Calcium): 2.5 Na+ (Sodium): 137 HCO3 (Bicarb): 35 Bicarbonate Concentrate Lot No.: [id number] Acid Concentrate Lot No.: [id number] Chlorine Testing - Before each treatment and every 4 hours: Time On: 3 Time Off: 1413 Treatment Goal: 2L Weight Height: 177.8 cm (5' 10") (02/23/251412) Weight: 60.8 kg (134 lb) (02/23/251412) [...] feed based on dietary recommendations) Provider Name: [facility] Provider Role: Hospitalist [...] Active Problem List Diagnosis Anemia Paroxysmal A-fib ([facility]) ([facility]) HTN (hypertension) ESRD on hemodialysis ([facility]) ([facility]) IgA nephropathy determined by biopsy of kidney Diverticulosis Nonrheumatic aortic valve stenosis Calcification of abdominal aorta ([facility]) Missed vaccination due to patient refusal Tobacco abuse Alcohol use disorder in remission Atrial flutter, unspecified type ([facility]) RSV (acute bronchiolitis due to respiratory [...] failure with hypoxia (HCC) [J96.01] Tracheostomy care ([facility]) [Z43.0] 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HCC) care home (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 Complication of tracheostomy (CMS/HCC) (HCC) BRBPR (bright red blood per rectum) Hemoptysis [3] heparin, 5-30 Units/kg/hr, Last Rate: 18 Units/kg/hr (02/24/25 1601) Patient continuing to order packages when he was instructed not to, multiple times, while at the hospital. Dispatch called [employer] and said a package came to the postal service mail processor but they will not have access to retreive until Wednesday morning. It is locked over the weekend. Wound Care consulted for Pressure Injury Prevention. Pt's Kee score= 13 on 02/23 Pt's pressure points assessed. Pt's Right Heel, Elbows, Occiput and ears all intact. Pt currently followed by Wound WIRED MUSIC OPERATOR group for wounds to left toes, left plantar heel, right wrist, and sacrum with wound vac. For left toes, left heel, right wrist, and sacral wound assessments and treatment plan, please see Wound/Ostomy WIRED MUSIC OPERATOR progress notes. [place] sheet noted at bedside and not on [...] Name: Jun Snyder Patient : 1965 Acct: [id number] Date of Admission: 02/20/2025 Room[facility]Bed: [facility] A Code Status: Full Code Allergies: Allergies[1] Diagnosis: Problem List[2] Treatment: Hemodialysis 1:1 Priority: Routine Location: Bedside Diabetic: Yes NPO: No Isolation Precautions: droplet Consent for Treatment Verified: Yes Blood Consent Verified: Not Applicable ICEBOAT: Identify, Consent, Equipment, HepB Status, Orders Complete, Access Verified, Timeliness (o2 and suction functional at bedside) Second Clinician Verifying: T. Bernard RN Time out performed prior to [...] - Before each treatment: Dialysis Machine No.: [id number] RO Machine Number: [id number] Dialyzer Lot No.: [id number] Tubing Lot Number: [id number] All Connections Secure: Yes Venous Parameters Set: Yes Arterial Parameters Set: Yes NS Bag: Yes Saline Line Double Clamped: Yes Dialyzer: Nipro Prime Volume (mL): 200 mL RO Machine Number: [id number] RO Machine Log Sheet Completed: Yes Machine Alarm Self Test: Completed, Passed (test passed at 0938) (02/22/25 0940) Air Foam Detector: Tested, Proper Function, pH Reading Extracorporeal Circuit Tested for Integrity: Yes Machine Conductivity: 13.7 Manual Conductivity: 13.8 Manual Ph: 7 Bleach Test (Neg): Yes (water check negative at 1215) Bath Temperature: 36 C (96.8 F) Conductivity Meter Serial #: [id number] Machine Functioning Alarm Free? Yes Dialysis Bath: K+ (Potassium): 3 Ca+ (Calcium): 2 Na+ (Sodium): 137 HCO3 (Bicarb): 35 Bicarbonate Concentrate Lot No.: [id number] Acid Concentrate Lot No.: [id number] Chlorine Testing - Before each treatment and [...] 120 mmHg 90 600 Yes Brigitte Molina WIRED MUSIC OPERATOR at bedside, no voiced complaints. 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 This RN spoke with RN at [facility] to verify medications that pt is taking. Pt arrived to hospital with wound vac on coccyx. Pt declined pictures to be taken of wound for charting. Pt states wound is being cared for by correction facility. Pt also mentioned that his Left [...] consuelo marten transport documented in this encounter [facility] 02-26-2025 Telephone encount er Note Called spoke with a nurse at the home he lives at. She declined to schedule any appointments at this time because they don't know when patient will be discharged. She said to call back once he is out the hospital. There is no other number to contact patient directly [facility] 02-26-2025 Miscellaneous Notes Formattin g of this [...] this? Thank you documented in this encounter [facility] 02-23-2025 Telephone encount er Note Called LM to call back and schedule CT and hospital follow up with any ARMIN [facility] 02-23-2025 Miscellaneous Notes Formattin g of this note might be different from the original. Called LM to call back and schedule CT and hospital follow up with any ARMIN Antonio, can we please schedule a 6-week CT scan for this patient and a follow-up appointment after this? Thank you documented in this encounter [facility] 02-23-2025 Consult note Formatting of th is [...] was bright red and it stopped 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 Reason for Consult: PEG [...] constipation). 02/21/25 Historical Provider, epoetin rowan-epbx (Retacrit) 07183 UNIT/ML injection Inject 0.79 mL (7,900 Units) [...] bilateral pleural effusions. 5. Cholelithiasis, and [place] kidneys. Report Dictated on Electronically Signed By: [...] Jaskaran Bey MD General Surgery PGY-2 Pager [phone] [1] Past Medical History: Diagnosis Date Acute renal failure (ARF) (HCC) 10/19/2019 Anemia 12/30/2021 Calcification of abdominal aorta ([facility]) 10/08/202309/[address] abd Diverticulosis 10/08/2023 ESRD on hemodialysis ([facility]) ([facility]) 10/26/2019 Hemodialysis patient ([facility]) ([facility]) HTN (hypertension) 12/01/2022 Hypertension IgA nephropathy IgA nephropathy determined by biopsy of kidney 10/26/2019 Missed vaccination due to patient refusal 10/08/2023 Has a number of non-scientific based beliefs which interfere with his understanding and acceptance of the medical benefit of vaccination. Nonrheumatic aortic valve stenosis 10/08/2023 Paroxysmal A-fib ([facility]) ([facility]) 08/18/2023 Tobacco abuse 10/08/2023 [2] Past Surgical History: Procedure Laterality Date APPENDECTOMY CARDIAC CATHETERIZATION N/A 10/09/2024 Performed by Bob Watson MD at [facility] Cardiac Cath/EP Lab CARDIAC CATHETERIZATION Bilateral 11/01/2024 Performed by Bob Watson MD at [facility] Cardiac Cath/EP Lab CARDIAC CATHETERIZATION N/A 11/01/2024 Performed by Bob Watson MD at [facility] Cardiac Cath/EP Lab COLONOSCOPY N/A 01/24/2025 Performed by Chadd Davis MD at [facility] ENDOSCOPY FISTULAGRAM (HISTORICAL) Left 09/15/2021 LEFT UPPER ARM HX AV FISTULA CREATION IR EMBOLIZATION 10/14/2024 IR EMBOLIZATION 10/14/2024 [facility] SPECIAL PROCEDURES IR FISTULAGRAM 08/07/2022 IR [...] 0 min Stress: Stress Concern Present (02/21/2025) [place] [employer] - Occupational Stress Questionnaire Feeling of Stress : To some extent Social Connections: Unknown (02/21/2025) Social Connection and Isolation Panel [NHANES] Frequency of Communication with Friends and Family: More than three times a week Frequency of Social Gatherings with Friends and Family: Patient declined Attends Rastafari Services: Patient declined Active Member of Clubs [...] minutes (including chart/data review/analysis, care coordination, and [id number] encounter), and was spent discussing/counseling the patient/family [...] & Acute Care Surgery Department of Surgery [facility] Pager: [phone] ~~~~~~~~~~~~~~~~~~~~~~~~~~~~~~~~ ~~~~~~~~~~~~~~~~~~~~~~~~~~~~~ This note may have been dictated using [employer] Edition 2.6 and/or [employer] Voice Recognition Feature. The document was proofread; however, unrecognized voice recognition ski binding fitter and repairer errors may be present. [1] Patient Active Problem List Diagnosis Anemia Paroxysmal A-fib ([facility]) ([facility]) HTN (hypertension) ESRD on hemodialysis ([facility]) ([facility]) IgA nephropathy determined by biopsy of kidney Diverticulosis Nonrheumatic aortic valve stenosis Calcification of abdominal aorta ([facility]) Missed vaccination due to patient refusal [...] left foot, 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 of skin ([facility]) Tracheostomy dependence (HCC) Leukocytosis Decubitus ulcer of sacral region, unstageable (HCC) Pneumonia of both lungs due to methicillin susceptible Staphylococcus aureus (MSSA) (HCC) Sacral osteomyelitis (CMS/HCC) (HCC) Acute respiratory failure with hypoxia ([facility]) [J96.01] Tracheostomy care ([facility]) [Z43.0] 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 [facility] - Infectious Diseases Attending Consult Note [...] bilateral pleural effusions. 5. Cholelithiasis, and [place] kidneys. Past Medical History: Medical History[1] Past [...] 0 min Stress: Stress Concern Present (02/21/2025) [place] [facility] - Occupational Stress Questionnaire Feeling of Stress : To some extent Social Connections: Unknown (02/21/2025) Social Connection and Isolation Panel [NHANES] Frequency of Communication with Friends and Family: More than three times a week Frequency of Social Gatherings with Friends and Family: Patient declined Attends Rastafari Services: Patient declined Active Member of Clubs [...] 9 PROCAL -- 0.68* -- Recent Labs 02/20/25182402/21/253 02/22/25 0100 WBC 9.4 7.0 9.0 HGB [...] History: Diagnosis Date Acute renal failure (ARF) ([facility]) 10/19/2019 Anemia 12/30/2021 Calcification of abdominal aorta ([facility]) 10/08/202309/[address] abd Diverticulosis 10/08/2023 ESRD on hemodialysis ([facility]) ([facility]) 10/26/2019 Hemodialysis patient ([facility]) ([facility]) HTN (hypertension) 12/01/2022 Hypertension IgA nephropathy IgA nephropathy determined by biopsy of kidney 10/26/2019 Missed vaccination due to patient refusal 10/08/2023 Has a number of non-scientific based beliefs which interfere with his understanding and acceptance of the medical benefit of vaccination. Nonrheumatic aortic valve stenosis 10/08/2023 Paroxysmal A-fib ([facility]) ([facility]) 08/18/2023 Tobacco abuse 10/08/2023 [2] Past Surgical History: Procedure Laterality Date APPENDECTOMY CARDIAC CATHETERIZATION N/A 10/09/2024 Performed by Bob Watson MD at [facility] Cardiac Cath/EP Lab CARDIAC CATHETERIZATION Bilateral 11/01/2024 Performed by Bob Watson MD at [facility] Cardiac Cath/EP Lab CARDIAC CATHETERIZATION N/A 11/01/2024 Performed by Bob Watson MD at [facility] Cardiac Cath/EP Lab COLONOSCOPY N/A 01/24/2025 Performed by Chadd Davis MD at [facility] ENDOSCOPY FISTULAGRAM (HISTORICAL) Left 09/15/2021 LEFT [...] x1 on 02/21. HD is on a / schedule with planned HD today. Will check level 4hrs post-HD and re-dose based on results. Follow renal status closely. Thank you for this consult. Please page/call with questions. Date: 02/22/25 Time: 9:31 AM Jolie Uribe RPh (available on [email or web address]) Associated Order(s): INPATIENT CONSULT TO WOUND CARE PROVIDERS Images from the original note were not included. [facility] Wound Care/NPWT Progress Note Jun Snyder [...] for pain with PO pain medication, per staff interpreter, prior to wound VAC dressing change. Wet [...] apply Betadine and allow to dry, leave PUBLIC RELATIONS ANALYST daily and PRN Left plantar heel [...] to follow Recommend to follow up at [facility] Outpatient wound care center after [...] History: Diagnosis Date Acute renal failure (ARF) ([facility]) 10/19/2019 Anemia 12/30/2021 Calcification of abdominal aorta ([facility]) 10/08/202309/[address] abd Diverticulosis 10/08/2023 ESRD on hemodialysis ([facility]) ([facility]) 10/26/2019 Hemodialysis patient ([facility]) ([facility]) HTN (hypertension) 12/01/2022 Hypertension IgA nephropathy IgA nephropathy determined by biopsy of kidney 10/26/2019 Missed vaccination due to patient refusal 10/08/2023 Has a number of non-scientific based beliefs which interfere with his understanding and acceptance of the medical benefit of vaccination. Nonrheumatic aortic valve stenosis 10/08/2023 Paroxysmal A-fib ([facility]) ([facility]) 08/18/2023 Tobacco abuse 10/08/2023 [2] Past Surgical History: Procedure Laterality Date APPENDECTOMY CARDIAC CATHETERIZATION N/A 10/09/2024 Performed by Bob Watson MD at [facility] Cardiac Cath/EP Lab CARDIAC CATHETERIZATION Bilateral 11/01/2024 Performed by Bob Watson MD at [facility] Cardiac Cath/EP Lab CARDIAC CATHETERIZATION N/A 11/01/2024 Performed by Bob Watson MD at [facility] Cardiac Cath/EP Lab COLONOSCOPY N/A 01/24/2025 Performed by Chadd Davis MD at [facility] ENDOSCOPY FISTULAGRAM (HISTORICAL) Left 09/15/2021 LEFT [...] needed (PRN constipation). [DISCONTINUED] epoetin rowan-epbx (Retacrit) 36652 UNIT/ML injection Inject 0.79 mL (7,900 Units) [...] & deltoids) Fluid Accumulation: Unable to assess Supervisor Industrial Garment Strength: Not Performed Nutrition Assessment: 59yo male admitted from [facility] 02/20 due to coughing up blood during [...] from NPO to Regular this morning. At [facility] diet was Potassium Restricted/Mech Soft/Thin + Prostat [...] Total Energy Requirements (kcals/day): 30-35 kcal/kg = 9045-9307 kcal Weight Used for Protein Requirements: Current [...] lb) (08/28/24) % Weight Change (Calculated): -34.6 [place] Body Weight (lbs) (Calculated): 166 lbs [place] Body Weight (Kg) (Calculated): 75 kg % [place] Body Weight (Calculated): 81.1 % BMI (kg/m2) [...] soon to determine Jade Rodriguez RD Contact: Wummelbox or [phone] Associated Order(s): INPATIENT CONSULT TO WOUND CARE PROVIDERS Images from the original note were not included. [facility] Wound Care CONSULT Note Jun Snyder [...] apply Betadine and allow to dry, leave PUBLIC RELATIONS ANALYST daily and PRN Right wrist Abrasion: [...] to follow Recommend to follow up at [facility] Outpatient wound care center after [...] History: Diagnosis Date Acute renal failure (ARF) ([facility]) 10/19/2019 Anemia 12/30/2021 Calcification of abdominal aorta ([facility]) 10/08/202309/[address] abd Diverticulosis 10/08/2023 ESRD on hemodialysis ([facility]) ([facility]) 10/26/2019 Hemodialysis patient ([facility]) ([facility]) HTN (hypertension) 12/01/2022 Hypertension IgA nephropathy [...] 10/09/2024 Performed by Bob Watson MD at [facility] Cardiac Cath/EP Lab CARDIAC CATHETERIZATION Bilateral 11/01/2024 Performed by Bob Watson MD at [facility] Cardiac Cath/EP Lab CARDIAC CATHETERIZATION N/A 11/01/2024 Performed by Bob Watson MD at [facility] Cardiac Cath/EP Lab COLONOSCOPY N/A 01/24/2025 Performed by Chadd Davis MD at [facility] ENDOSCOPY FISTULAGRAM (HISTORICAL) Left 09/15/2021 LEFT UPPER ARM HX AV FISTULA CREATION IR EMBOLIZATION 10/14/2024 IR EMBOLIZATION 10/14/2024 [facility] SPECIAL PROCEDURES IR FISTULAGRAM 08/07/2022 IR [...] needed (PRN constipation). [DISCONTINUED] epoetin rowan-epbx (Retacrit) 83357 UNIT/ML injection Inject 0.79 mL (7,900 Units) under the skin 1 (one) time per week. (Patient not taking: Reported on 02/21/2025) [DISCONTINUED] pantoprazole (ProtoNix) 40 MG injection Infuse 40 mg into a venous catheter 2 times daily. Cosigned by Ahsan Gill DO at 02/26/2025 4:59 PM EDT Associated Order(s): IP CONSULT TO PULMONOLOGY Images from the original note were not included. [facility] [place] Pul[place] Medicine [phone] PULMONARY CONSULTATION NOTE. Patient - Jun Snyedr, Age - 59 y.o. - 1965 Room [...] Dose Status acetaminophen (Tylenol) 325 MG tablet [id number] No Take 650 mg by mouth every 6 hours as needed for mild pain (1-3) or fever. Patient not taking: Reported on 02/21/2025 Historical ProviderMD Unknown Active Ampicillin-Sulbactam Sodium (UNASYN IV) [id number] Infuse 3 g into a venous catheter Every 24 hours. Historical ProviderMD 02/14/25 5797 B complex-vitamin C-folic acid (Nephro-Nato Rx) 1 MG tablet [id number] Take 1 tablet by mouth daily. Historical ProviderMD Active bisacodyl (Dulcolax) 5 MG EC tablet [id number] Take 5 mg by mouth Daily as needed for constipation. Do not crush, chew, or split. Historical ProviderMD Active bisacodyl (Dulcolax) 5 mg split suppository [id number] Insert 10 mg into the rectum Daily as needed (PRN constipation). Historical ProviderMD Active epoetin rowan-epbx (Retacrit) 65543 UNIT/ML injection [id number] No Inject 0.79 mL (7,900 Units) under the skin 1 (one) time per week. Patient not taking: Reported on 02/21/2025 DENIA Girard CNP Unknown Active ipratropium-albuterol (Duo-Neb) 0.5-2.5 mg/3 mL nebulizer solution [id number] Yes Take 3 mL by nebulization every 8 hours. DENIA Girard CNP Past Week Active Lidocaine 4 % patch [id number] Apply 1 patch topically daily. DENIA Girard CNP Active magnesium hydroxide (Milk of Magnesia) 800 MG/5ML suspension [id number] Take 30 mL by mouth Daily as needed for constipation (if no bm in 3 days). Historical Provider, Active melatonin 5 MG tablet [id number] 1 tablet (5 mg) by Per G Tube route Nightly as needed (insomnia). DENIA Girard CNP Active metoprolol tartrate (Lopressor) 25 MG tablet [id number] 1 tablet (25 mg) by Per G Tube route 2 times daily. DENIA Girard CNP Active midodrine (Proamatine) 5 MG tablet [id number] 3 tablets (15 mg) by Per G Tube route every 6 hours. DENIA Girard CNP 02/14/25 235 naloxone in sodium chloride (PF) injection injection [id number] Inject 0.04 mg into the shoulder, thigh, or buttocks as needed for opioid reversal or respiratory depression. Historical Provider, Active oxyCODONE (Roxicodone) 5 MG immediate release tablet [id number] Take 1 tablet (5 mg) by mouth every 6 hours as needed for moderate pain (4-6) for up to 5 days. Barb Dawkins MD 02/14/25 235 pantoprazole (ProtoNix) 40 MG injection [id number] Infuse 40 mg into a venous catheter 2 times daily. DENIA Girard CNP Active QUEtiapine (SEROquel) 25 MG tablet [id number] 1 tablet (25 mg) by Per G Tube route Nightly. Osiris Terrell APRN - [facility]IA 02/14/25 2359 sevelamer (Renagel) 800 MG tablet [id number] Take 800 mg by mouth 3 times daily (with meals). Swallow tablet whole; do not crush, break, or chew. Give with meals for CKD/dialysis Historical Provider, Active warfarin (Coumadin) 1 MG tablet [id number] Yes Take as directed per After Visit [...] 10/09/2024 Performed by Bob Watson MD at [facility] Cardiac Cath/EP Lab CARDIAC CATHETERIZATION Bilateral 11/01/2024 Performed by Bob Watson MD at [facility] Cardiac Cath/EP Lab CARDIAC CATHETERIZATION N/A 11/01/2024 Performed by Bob Watson MD at [facility] Cardiac Cath/EP Lab COLONOSCOPY N/A 01/24/2025 Performed by Chadd Davis MD at [facility] ENDOSCOPY FISTULAGRAM (HISTORICAL) Left 09/15/2021 LEFT UPPER ARM HX AV FISTULA CREATION IR EMBOLIZATION 10/14/2024 IR EMBOLIZATION 10/14/2024 [facility] SPECIAL PROCEDURES IR FISTULAGRAM 08/07/2022 IR [...] PM EDT I have personally performed a [id number]-[id number] diagnostic evaluation on this patient on date of service 02/21/2025. History, labs, imaging studies, and electronic medical record have been reviewed by me. This note documented by the [x]customs house broker []ARMIN reflects my history, exam, and medical [...] RA Associated Order(s): IP CONSULT TO NEPHROLOGY [facility] [address] [place] [address] Consult Note Patient's Name: Jun Snyder 10:29 [...] 88.4 89.9 PLT 312 316 Recent Labs 02/20/255 02/21/25 0053 NA 133* 131* K 3.1* [...] bilateral pleural effusions. 5. Cholelithiasis, and [place] kidneys. Assessment and Plan: 59 y.o. male [...] any questions or concerns Bree Molina APRN PANTS PRESSER A-G WIRED MUSIC OPERATOR [facility] [phone] Pt seen and examined independently by me. I reviewed with DENIA-PANTS PRESSER the medical history and the findings on physical examination. I discussed the patient s diagnosis and concur with the treatment plan as documented in his note. Please call [phone] or message me through Aud[employer] with any questions or concerns. [1] Past Medical History: Diagnosis Date Acute renal failure (ARF) ([facility]) 10/19/2019 Anemia 12/30/2021 Calcification of abdominal aorta ([facility]) 10/08/202309/[address] abd Diverticulosis 10/08/2023 ESRD on hemodialysis ([facility]) ([facility]) 10/26/2019 Hemodialysis patient [place] ([facility]) HTN (hypertension) 12/01/2022 Hypertension IgA nephropathy IgA nephropathy determined by biopsy of kidney 10/26/2019 Missed vaccination due to patient refusal 10/08/2023 Has a number of non-scientific based beliefs which interfere with his understanding and acceptance of the medical benefit of vaccination. Nonrheumatic aortic valve stenosis 10/08/2023 Paroxysmal A-fib ([facility]) ([facility]) 08/18/2023 Tobacco abuse 10/08/2023 [2] Past Surgical History: Procedure Laterality Date APPENDECTOMY CARDIAC CATHETERIZATION N/A 10/09/2024 Performed by Bob Watson MD at [facility] Cardiac Cath/EP Lab CARDIAC CATHETERIZATION Bilateral 11/01/2024 Performed by Bob Watson MD at [facility] Cardiac Cath/EP Lab CARDIAC CATHETERIZATION N/A 11/01/2024 Performed by Bob Watson MD at [facility] Cardiac Cath/EP Lab COLONOSCOPY N/A 01/24/2025 Performed by Chadd Davis MD at [facility] ENDOSCOPY FISTULAGRAM (HISTORICAL) Left 09/15/2021 LEFT UPPER ARM HX AV FISTULA CREATION IR EMBOLIZATION 10/14/2024 IR EMBOLIZATION 10/14/2024 [facility] SPECIAL PROCEDURES IR FISTULAGRAM 08/07/2022 IR FISTULAGRAM 08/07/2022 [facility] IR IMAGING TONSILLECTOMY (HISTORICAL) [3] Family History Problem Relation Name Age of Onset No Known Problems Mother No Known Problems Father [facility] Telephone encount er Note Antonio, can we please schedule a 6-week CT scan for this patient and a follow-up appointment after this? Thank you [facility] 02-22-2025 Hospital Discharg e instructions Anthony Hurtado, DO - 02/22/2025 2:54 PM EDT [...] 10/09/2024 Performed by Bob Watson MD at [facility] Cardiac Cath/EP Lab CARDIAC CATHETERIZATION Bilateral 11/01/2024 Performed by Bob Watson MD at [facility] Cardiac Cath/EP Lab CARDIAC CATHETERIZATION N/A 11/01/2024 Performed by Bob Watson MD at [facility] Cardiac Cath/EP Lab COLONOSCOPY N/A 01/24/2025 Performed by Chadd Davis MD at [facility] ENDOSCOPY FISTULAGRAM (HISTORICAL) Left 09/15/2021 LEFT UPPER ARM HX AV FISTULA CREATION IR EMBOLIZATION 10/14/2024 IR EMBOLIZATION 10/14/2024 [facility] SPECIAL PROCEDURES IR FISTULAGRAM 08/07/2022 IR [...] (Chronic) Pleural effusion Peritonitis due to fungus ([facility]) History of abdominal surgery Leg DVT (deep venous thromboembolism), acute, left (HCC) 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, 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) Tracheostomy dependence ([facility]) Leukocytosis Decubitus ulcer of sacral region, unstageable ([facility]) Pneumonia of both lungs due to methicillin susceptible Staphylococcus aureus (MSSA) ([facility]) Sacral osteomyelitis (CMS/HCC) (HCC) Acute respiratory failure with hypoxia ([facility]) [J96.01] Tracheostomy care ([facility]) [Z43.0] 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[facility]) care home (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 Complication of tracheostomy (CMS/HCC) ([facility]) Anemia Aortic stenosis Upper GI bleed S/P AVR Acute hypoxic respiratory failure ([facility]) Acute encephalopathy Pneumoperitoneum BRBPR (bright red [...] Minimal assistance Toileting Minimal assistance 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 Minimal assistance Med Delivery yes Wound Care Documentation and Therapy: Wound/Incision 11/13/24 Pressure Injury Sacrum (Active) Site Assessment Unable to assess;Other (Comment) 02/21/25 0512 Odor None 02/21/25 0512 Drainage Amount Other (Comment) 02/21/25 0512 Treatments Other (Comment) 02/21/25 05 Primary Dressing [...] 02/21/25 05 Drainage Amount Unable to assess 02/21/25511 Treatments Cleansed 02/22/25 0800 Primary Dressing Open [...] Date: 02/20/25 Discharging to Facility/ Agency Name: [facility] Address: [address] [place] [address] Dialysis Facility (if applicable) Name: Address: Dialysis Schedule: Phone: Fax: Laborer Syrup Machine/Ssrs Report Developer signature: ICIAN SECTION Name: Jun Snyder Prognosis: excellent Condition at Discharge: stable Rehab Potential (if transferring to Rehab): excellent Recommended Labs or Other Treatments After Discharge: BMP/CBC/INR within 1 day. Follow up with PCP within 1 week to review all medications and findings of this admission. Coumadin dosing Date INR Dose 69 - 1.8 - 7.5mg 6/8 - 1.5 [...] to a nursing facility directly from an [facility] or a unit of a hospital that is not operated by or licensed by [facility] under section 5119.14 or 5160-3-15.1 5 The individual requires the level of services provided by a nursing facility for the condition for which he or she was treated in the hospital and, Physician Certification: I certify the above information and transfer of Jun Snyder is necessary for the continuing treatment of the diagnosis listed and that he requires correction facility for less than 30 days. Update [...] - 1 mg documented in this encounter [facility] 02-21-2025 Telephone encount er Note Name of caller: Padmini Contact phone number: [phone] Relationship to Patient: [facility] Provider: Mariano Practice: Infectious Disease Chief Complaint/Reason for Call: [facility] need a routine consult for this patient for Hemoptysis Cavitary lung lesion. Please advise Wister Best time of day caller can be reached: any Patient advised that office/PCP has 24-48 business hours to return their call: Yes [facility] 02-21-2025 Miscellaneous Notes Formattin g of this note might be different from the original. Name of caller: Padmini Contact phone number: [phone] Relationship to Patient: [facility] Provider: Mariano Practice: Infectious Disease Chief Complaint/Reason for Call: [facility] need a routine consult for this patient for Hemoptysis Cavitary lung lesion. Please advise Padmini Best time of day caller can be reached: any Patient advised that office/PCP has 24-48 business hours to return their call: Yes documented in this encounter [facility] 02-21-2025 Note [facility] request. Await review and response regarding ability to accept. TCC notified. Electronically signed by [facility] 02-20-2025 History and physical note Attending [...] bilateral pleural effusions. 5. Cholelithiasis, and [place] kidneys. Past Medical History: Past Medical History: Diagnosis Date Acute renal failure (ARF) ([facility]) 10/19/2019 Anemia 12/30/2021 Calcification of abdominal aorta ([facility]) 10/08/202309/[address] abd Diverticulosis 10/08/2023 ESRD on hemodialysis ([facility]) ([facility]) 10/26/2019 Hemodialysis patient ([facility]) ([facility]) HTN (hypertension) 12/01/2022 Hypertension IgA nephropathy IgA nephropathy determined by biopsy of kidney 10/26/2019 Missed vaccination due to patient refusal 10/08/2023 Has a number of non-scientific based beliefs which interfere with his understanding and acceptance of the medical benefit of vaccination. Nonrheumatic aortic valve stenosis 10/08/2023 Paroxysmal A-fib ([facility]) ([facility]) 08/18/2023 Tobacco abuse 10/08/2023 Past Surgical [...] Patient Unable To Answer (12/01/2024) Received from [facility] Medical Overall Financial Resource Strain (CARDIA) Difficulty of Paying Living Expenses: Patient unable to answer Food Insecurity: Patient Unable To Answer (12/01/2024) Received from [facility] Medical Hunger Vital Sign Worried About Running Out of Food in the Last Year: Patient unable to answer Ran Out of Food in the Last Year: Patient unable to answer Transportation Needs: No Transportation Needs (01/18/2025) Received from [facility] Transportation Source Has lack of transportation kept you from medical appointments or from getting medications?: No Has lack of transportation kept you from meetings, work, or from getting things needed for daily living?: No Physical Activity: Not on file Stress: No Stress Concern Present (01/18/2025) Received from [facility] Occupational Health - Occupational Stress Questionnaire Feeling of Stress : Not at all Social Connections: Patient Unable To Answer (12/01/2024) Received from [facility] Social Connection and Isolation Panel [NHANES] Frequency of Communication with Friends and Family: Patient unable to answer Frequency of Social Gatherings with Friends and Family: Patient unable to answer Attends Rastafari Services: Patient unable to answer Active Member of Clubs or Organizations: Patient unable to answer Attends Club or Organization Meetings: Patient unable to answer Marital Status: Patient unable to answer Intimate Partner Violence: Patient Unable To Answer (11/28/2024) Received from [facility] Medical Domestic Abuse Assessment Do you feel safe in your relationships at home?: Unable to assess Physical Abuse: Unable to assess [facility] Domestic Abuse - Type of Abuse: Not on file [facility] Domestic Abuse - Time Frame: Not on file [facility] Domestic Abuse - Signs and Symptoms: Not on file Verbal Abuse: Unable to assess [facility] Domestic Abuse - Reported To: Not on file Housing Stability: Patient Unable To Answer (12/01/2024) Received from [facility] Housing Stability Vital Sign Unable [...] MD Division of Hospital Medicine Inpatient Medical Services/[facility] [1] Past Surgical History: Procedure Laterality Date APPENDECTOMY CARDIAC CATHETERIZATION N/A 10/09/2024 Performed by Bob Watson MD at [facility] Cardiac Cath/EP Lab CARDIAC CATHETERIZATION Bilateral 11/01/2024 Performed by Bob Watson MD at [facility] Cardiac Cath/EP Lab CARDIAC CATHETERIZATION N/A 11/01/2024 Performed by Bob Watson MD at [facility] Cardiac Cath/EP Lab COLONOSCOPY N/A 01/24/2025 Performed by Chadd Davis MD at [facility] ENDOSCOPY FISTULAGRAM (HISTORICAL) Left 09/15/2021 LEFT UPPER ARM HX AV FISTULA CREATION IR EMBOLIZATION 10/14/2024 IR EMBOLIZATION 10/14/2024 [facility] SPECIAL PROCEDURES IR FISTULAGRAM 08/07/2022 IR FISTULAGRAM 08/07/2022 [facility] IR IMAGING TONSILLECTOMY (HISTORICAL) [2] Family History Problem Relation Name Age of Onset No Known Problems Mother No Known Problems Father [3] Allergies Allergen Reactions Lisinopril Swelling and Angioedema documented in this encounter [facility] 02-20-2025 Note [facility] 02-20-2025 Emergency department Note Called [...] placed. 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 HISTORY OF PRESENT ILLNESS [...] CURRENT MEDICATIONS Previous Medications EPOETIN ROWAN-EPBX (RETACRIT) 91002 UNIT/ML INJECTION Inject 0.79 mL (7,900 Units) [...] Triage Vitals Temp Heart Rate Resp BP 02/20/25175002/20/25 17502/20/25 17502/20/251750 36.6 C (97.9 F) 86 18 135/81 SpO2 Temp Source Heart Rate Source Patient Position 02/20/25201202/20/25 17502/20/25 17502/20/251750 99 % Oral Monitor Lying BP Location [...] bilateral pleural effusions. 5. Cholelithiasis, and [place] kidneys. Report Dictated on Electronically Signed By: [...] m (5' 10") ED Course as of 02/20/252046 Tue February 20, 20251952 CTA chest angiogram w and/or [...] of hemoptysis, he will be admitted at [facility] under the hospitalist service in case he [...] CT abd Diverticulosis 10/08/2023 ESRD on hemodialysis [place] ([facility]) 10/26/2019 Hemodialysis patient ([facility]) ([facility]) HTN (hypertension) 12/01/2022 Hypertension IgA nephropathy IgA nephropathy determined by biopsy of kidney 10/26/2019 Missed vaccination due to patient refusal 10/08/2023 Has a number of non-scientific based beliefs which interfere with his understanding and acceptance of the medical benefit of vaccination. Nonrheumatic aortic valve stenosis 10/08/2023 Paroxysmal A-fib ([facility]) ([facility]) 08/18/2023 Tobacco abuse 10/08/2023 [2] Past Surgical History: Procedure Laterality Date APPENDECTOMY CARDIAC CATHETERIZATION N/A 10/09/2024 Performed by Bob Watson MD at [facility] Cardiac Cath/EP Lab CARDIAC CATHETERIZATION Bilateral 11/01/2024 Performed by Bob Watson MD at [facility] Cardiac Cath/EP Lab CARDIAC CATHETERIZATION N/A 11/01/2024 Performed by Bob Watson MD at [facility] Cardiac Cath/EP Lab COLONOSCOPY N/A 01/24/2025 Performed by Chadd Davis MD at [facility] ENDOSCOPY FISTULAGRAM (HISTORICAL) Left 09/15/2021 LEFT UPPER ARM HX AV FISTULA CREATION IR EMBOLIZATION 10/14/2024 IR EMBOLIZATION 10/14/2024 [facility] SPECIAL PROCEDURES IR FISTULAGRAM 08/07/2022 IR FISTULAGRAM 08/07/2022 [facility] IR IMAGING TONSILLECTOMY (HISTORICAL) [3] Family History [...] Patient Unable To Answer (12/01/2024) Received from [facility] Medical Hunger Vital Sign Worried About Running Out of Food in the Last Year: Patient unable to answer Ran Out of Food in the Last Year: Patient unable to answer Transportation Needs: No Transportation Needs (01/18/2025) Received from [facility] Medical [place] Transportation Source Has lack of transportation kept you from medical appointments or from getting medications?: No Has lack of transportation kept you from meetings, work, or from getting things needed for daily living?: No Stress: No Stress Concern Present (01/18/2025) Received from [facility] Occupational Health - Occupational Stress Questionnaire Feeling of Stress : Not at all Social Connections: Patient Unable To Answer (12/01/2024) Received from [facility] Medical Social Connection and Isolation Panel [NHANES] Frequency of Communication with Friends and Family: Patient unable to answer Frequency of Social Gatherings with Friends and Family: Patient unable to answer Attends Rastafari Services: Patient unable to answer Active Member of Clubs or Organizations: Patient unable to answer Attends Club or Organization Meetings: Patient unable to answer Marital Status: Patient unable to answer Intimate Partner Violence: Patient Unable To Answer (11/28/2024) Received from [facility] Domestic Abuse Assessment Do you feel safe in your relationships at home?: Unable to assess Physical Abuse: Unable to assess Verbal Abuse: Unable to assess Housing Stability: Patient Unable To Answer (12/01/2024) Received from [facility] Medical Housing Stability Vital Sign [...] was bright red and it stopped 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 documented in this encounter [facility] 02-14-2025 History of Presen t illness Narrative Images from the original note were not included. [facility] Infectious Diseases Advanced Practice Provider Outpatient Progress Note HISTORYOF PRESENT ILLNESS 59 yo male with PMHx significant for ESRD on HD via AVF, HTN, PAD who was admitted at [facility] (10/03/24-11/28/24) where he underwent AVR (10/12/24). [...] Pip-Tazo and Anidulafungin. Patient was discharged to [facility] on 11/28/24 where he was followed by our ID group for recurrent MSSA LRTI. He additionally had a sacral wound that was debrided to bone 01/02/25 (Sacral wound Cx + E faecalis, Clostridium clostridioforme). He was on a course of Amp-Sulbactam planned for 6 weeks through 02/13/25 and discharged to SNF 01/18/25. Patient then presented to [facility] 01/19 after inadvertently self-dislodging tracheostomy. He was transferred to [facility] ICU for airway management and to determine if replacement tracheostomy was needed; decision was made to leave tracheostomy out. He was transferred to [facility] same day. 01/20 GI and critical care were consulted dt rectal bleeding. He was transferred back to ICU and had an EGD that showed non-bleeding duodenal ulcer. At that time sacral wound was also noted to be bleeding. Wound vac was applied. He continued on course of Amp-Sulbactam as planned through 02/13/25 and had tunneled line placed. Patient was discharged to [facility] 02/01/25. Patient presents today for EOT follow [...] Patient Unable To Answer (12/01/2024) Received from [facility] Overall Financial Resource Strain (CARDIA) Difficulty of Paying Living Expenses: Patient unable to answer Food Insecurity: Patient Unable To Answer (12/01/2024) Received from [facility] Hunger Vital Sign Worried About Running Out of Food in the Last Year: Patient unable to answer Ran Out of Food in the Last Year: Patient unable to answer Transportation Needs: No Transportation Needs (01/18/2025) Received from [facility] Transportation Source Has lack of transportation kept you from medical appointments or from getting medications?: No Has lack of transportation kept you from meetings, work, or from getting things needed for daily living?: No Physical Activity: Not on file Stress: No Stress Concern Present (01/18/2025) Received from [facility] - Occupational Stress Questionnaire Feeling of Stress : Not at all Social Connections: Patient Unable To Answer (12/01/2024) Received from [facility] Social Connection and Isolation Panel [NHANES] Frequency of Communication with Friends and Family: Patient unable to answer Frequency of Social Gatherings with Friends and Family: Patient unable to answer Attends Rastafari Services: Patient unable to answer Active Member of Clubs or Organizations: Patient unable to answer Attends Club or Organization Meetings: Patient unable to answer Marital Status: Patient unable to answer Intimate Partner Violence: Patient Unable To Answer (11/28/2024) Received from [facility] Domestic Abuse Assessment Do you feel safe in your relationships at home?: Unable to assess Physical Abuse: Unable to assess [facility] Domestic Abuse - Type of Abuse: Not on file [facility] Domestic Abuse - Time Frame: Not on file [facility] Domestic Abuse - Signs and Symptoms: Not on file Verbal Abuse: Unable to assess [facility] Domestic Abuse - Reported To: Not on file Housing Stability: Patient Unable To Answer (12/01/2024) Received from [facility] Housing Stability Vital Sign Unable [...] 02/01/25 46.1 kg (101 lb 10.1 oz) 03/04/25 58.9 kg (129 lb 13.6 oz) Physical [...] neg 01/22 Acinetobacter baumannii PCR: neg Previous ([facility]) 01/02- sacral wound cx- E faecalis [...] accounting for open encounter. Mikala MORAN PA-C [facility] Infectious Disease [1] Past Medical History: Diagnosis Date Acute renal failure (ARF) ([facility]) 10/19/2019 Anemia 12/30/2021 Calcification of abdominal aorta ([facility]) 10/08/202309/[address] abd Diverticulosis 10/08/2023 ESRD on hemodialysis ([facility]) ([facility]) 10/26/2019 Hemodialysis patient ([facility]) ([facility]) HTN (hypertension) 12/01/2022 Hypertension IgA nephropathy IgA nephropathy determined by biopsy of kidney 10/26/2019 Missed vaccination due to patient refusal 10/08/2023 Has a number of non-scientific based beliefs which interfere with his understanding and acceptance of the medical benefit of vaccination. Nonrheumatic aortic valve stenosis 10/08/2023 Paroxysmal A-fib ([facility]) ([facility]) 08/18/2023 Tobacco abuse 10/08/2023 [2] Family History Problem Relation Name Age of Onset No Known Problems Mother No Known Problems Father documented in this encounter [facility] 02-02-2025 History of Presen t illness Narrative Images from the original note were not included. Pt discharged to [facility] on 02/01/25. Updated tracker with hospital doses. Warfarin dosing instructions: 0.5 mg per day. New interacting meds: N/a Next SAILAJA appt: post SNF documented in this encounter [facility] 02-02-2025 History of Presen t illness Narrative Images from the original note were not included. Pt discharged to [facility] on 02/01/25. Updated tracker with hospital doses. Warfarin dosing instructions: 0.5 mg per day. New interacting meds: N/a Next SAILAJA appt: post SNF Patient is still at [facility] ([phone]). I left a message for ELIA Anderson, regarding discharge plans. documented in this encounter [facility] 02-02-2025 History of Presen t illness Narrative Images from the original note were not included. Pt discharged to [facility] on 02/01/25. Updated tracker with hospital doses. Warfarin dosing instructions: 0.5 mg per day. New interacting meds: N/a Next SAILAJA appt: post SNF Patient is still at [facility] ([phone]). I left a message for ELIA Anderson, [...] readmitted on 02/20 and discharged back to [facility] on 03/05. documented in this encounter [facility] 02-01-2025 Nurse Note Transport here to take patient to [facility]. Wound Vac tubing clamped and disconnected from wound vac. Facility will determine if tubing is compatible with their wound vacs. Wound Vac Dressing leaking with foam falling out. Dressing removed and W-D drsg applied. Patient Name: Jun Snyder Patient : 1965 Acct: [id number] Date of Admission: 01/19/2025 Room[facility]Bed: [facility] A Code Status: Full Code Allergies: Allergies Allergen Reactions Lisinopril Swelling and Angioedema Diagnosis: Patient Active Problem List Diagnosis Anemia Paroxysmal A-fib ([facility]) ([facility]) HTN (hypertension) ESRD on hemodialysis ([facility]) ([facility]) IgA nephropathy determined by biopsy of kidney Diverticulosis Nonrheumatic aortic valve stenosis Calcification of abdominal aorta ([facility]) Missed vaccination due to patient refusal Tobacco abuse Alcohol use disorder in remission Atrial flutter, unspecified type ([facility]) RSV (acute bronchiolitis due to respiratory syncytial virus) Aortic stenosis Upper GI bleed S/P AVR Acute hypoxic respiratory failure ([facility]) Acute encephalopathy Pneumoperitoneum Gastric ulceration Severe malnutrition ([facility]) ([facility]) Pleural effusion Peritonitis due to fungus ([facility]) History of abdominal surgery Leg DVT (deep venous thromboembolism), acute, left ([facility]) 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, 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 of skin ([facility]) Tracheostomy dependence ([facility]) Leukocytosis Decubitus ulcer of sacral region, unstageable ([facility]) Pneumonia of both lungs due to methicillin susceptible Staphylococcus aureus (MSSA) ([facility]) Sacral osteomyelitis (CMS/HCC) ([facility]) Acute respiratory failure with hypoxia ([facility]) [J96.01] Tracheostomy care ([facility]) [Z43.0] 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[facility]) care home (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 Complication of tracheostomy (CMS/HCC) ([facility]) BRBPR (bright red blood per rectum) [...] 01/31/25 0400 -- -- -- -- Diminished Ecchymosis;[place];Mark Warm;Dry Flat;Gastrostomy tube Active 01/31/25 0801 Alert (0) Regular Tachypnea None (Room air) Diminished -- Warm;Dry Flat;Gastrostomy tube Active 01/31/25 1111 Alert (0) Regular -- -- -- -- -- -- -- Labs Lab Results Component Value Date/Time WBC 9.3 01/31/2025 0010 HGB 8.8 (L) 01/31/2025 001 HGB 9.4 11/11/2024 0230 HCT 27.9 (L) 01/31/2025 001 PLT 278 01/31/2025 0010 NA 138 01/31/2025 0010 K 4.3 01/31/2025 001 CL 99 01/31/2025 0010 CO2 27 01/31/2025 0010 BUN 15 01/31/2025 0010 CREATININE 3.64 (H) 01/31/2025 001 CREATININE 9.99 (H) 10/27/2019 0545 CALCIUM 10.0 01/31/2025 001 PHOS 4.6 01/31/2025 001 IV Drips and Rate/Dose sodium chloride, 20 mL/hr, Last Rate: 20 mL/hr (01/30/25 1838) Safety - Before each treatment: Dialysis Machine No.: [id number] RO Machine Number: [id number] Dialyzer Lot No.: [id number] Tubing Lot Number: [id number] All Connections Secure: Yes Venous Parameters Set: Yes Arterial Parameters Set: Yes NS Bag: Yes Saline Line Double Clamped: Yes Dialyzer: Nipro Prime Volume (mL): 200 mL RO Machine Number: [id number] RO Machine Log Sheet Completed: Yes Machine Alarm Self Test: Completed, Passed (722) (01/31/25 0743) Air Foam Detector: Tested, Proper Function, pH Reading Extracorporeal Circuit Tested for Integrity: Yes Machine Conductivity: 13.7 Manual Conductivity: 13.7 Manual Ph: 7 Bleach Test (Neg): Yes Bath Temperature: 36 C (96.8 F) Conductivity Meter Serial #: [id number] Machine Functioning Alarm Free? Yes Dialysis Bath: K+ (Potassium): 2 Ca+ (Calcium): 2.5 Na+ (Sodium): 137 HCO3 (Bicarb): 35 Bicarbonate Concentrate Lot No.: [id number] Acid Concentrate Lot No.: [id number] Chlorine Testing - Before each treatment and every 4 hours: Time On: 0811 Time Off: 1111 Treatment Goal: 2L Weight Height: 177.8 cm (5' 10") (01/30/25 1002) Weight: 53.2 kg (117 lb 4.6 oz) (01/31/25 0600) BMI (Calculated): 16.83 (01/31/25 06) 1st check: [...] to Education: Verbalized Understanding Patient arrived from [facility], Dr. Borrero in to [...] Name: Jun Snyder Patient : 1965 Acct: [id number] Date of Admission: 01/19/2025 Room[facility]Bed: [facility] A Code Status: Full Code Allergies: Allergies Allergen Reactions Lisinopril Swelling and Angioedema Diagnosis: Patient Active Problem List Diagnosis Anemia Paroxysmal A-fib (CMS/HCC) (HCC) HTN (hypertension) ESRD on hemodialysis ([facility]) ([facility]) IgA nephropathy determined by biopsy of kidney Diverticulosis Nonrheumatic aortic valve stenosis Calcification of abdominal aorta (HCC) Missed vaccination due to patient refusal Tobacco abuse Alcohol use disorder in remission Atrial flutter, unspecified type (HCC) RSV (acute bronchiolitis due to respiratory syncytial virus) Aortic stenosis Upper GI bleed S/P AVR Acute hypoxic respiratory failure ([facility]) Acute encephalopathy Pneumoperitoneum Gastric ulceration Severe [...] due to methicillin susceptible Staphylococcus aureus (MSSA) ([facility]) Sacral osteomyelitis ([facility]/HCC) ([facility]) Acute respiratory failure with hypoxia ([facility]) [J96.01] Tracheostomy care ([facility]) [Z43.0] 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[facility]) 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 Complication of tracheostomy ([facility]/HCC) ([facility]) BRBPR (bright red blood per rectum) [...] 01/29/25 0800 -- -- -- -- Clear [place];Mark Warm;[place]ry [place];Soft;Gastrostomy tube Active 01/29/25 0839 Alert (0) 3 Regular None (Room air) Clear [place] Warm;Dry;No swelling Soft Active 01/29/25 1210 Alert (0) 3 Regular None (Room air) Clear [place] -- -- -- Labs Lab Results Component Value Date/Time WBC 9.4 01/29/2025 0337 HGB 8.6 (L) 01/29/2025 0337 HGB 9.4 11/11/2024 0230 HCT 27.3 (L) 01/29/2025 033 PLT 271 01/29/2025 033 NA 134 (L) 01/29/2025 033 K 3.7 01/29/2025 033 CL 94 (L) 01/29/2025 033 CO2 23 01/29/2025336 BUN 21 01/29/2025 0337 CREATININE 4.17 (H) 01/29/2025336 CREATININE 9.99 (H) 10/27/2019544 CALCIUM 9.8 01/29/2025336 PHOS 4.9 (H) 01/29/2025336 IV Drips and Rate/Dose sodium chloride, 20 mL/hr, Last Rate: 20 mL/hr (01/25/252003) Safety - Before each treatment: Dialysis Machine No.: [id number] RO Machine Number: [id number] Dialyzer Lot No.: [id number] Tubing Lot Number: [id number] All Connections Secure: Yes Venous Parameters Set: Yes Arterial Parameters Set: Yes NS Bag: Yes Saline Line Double Clamped: Yes Dialyzer: Nipro Prime Volume (mL): 200 mL RO Machine Number: [id number] RO Machine Log Sheet Completed: Yes Machine Alarm Self Test: Completed, Passed (01/29/25729) Air Foam Detector: Tested, Proper Function, pH Reading Extracorporeal Circuit Tested for Integrity: Yes Machine Conductivity: 13.8 Manual Conductivity: 13.8 Manual Ph: 7 Bleach Test (Neg): Yes Bath Temperature: 36 C (96.8 F) Conductivity Meter Serial #: [id number] Machine Functioning Alarm Free? Yes Dialysis Bath: K+ (Potassium): 3 Ca+ (Calcium): 2.5 Na+ (Sodium): 137 HCO3 (Bicarb): 35 Bicarbonate Concentrate Lot No.: [id number] Acid Concentrate Lot No.: [id number] Chlorine Testing - Before each treatment and [...] 210 mmHg 100 600 Yes Pt stable [id number]. Pt stable , sleeping 01/29/25 1018 400 [...] -- -- -- -- -- Tx completed [facility] 1999 Vital Signs Patient Vitals for the [...] 1C. Pt in for transport. Patient Name: uJn Snyder Patient : 1965 Acct: [id number] Date of Admission: 01/19/2025 Room/Bed: T3-321/T3-321 A [...] (CMS/HCC) (HCC) Acute respiratory failure with hypoxia ([facility]) [J96.01] Tracheostomy care ([facility]) [Z43.0] 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HCC) care home (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 Complication of tracheostomy ([facility]CC) ([facility]) BRBPR (bright red blood per rectum) [...] HCT 28.4 (L) 01/26/2025 0952 PLT 265 01/26/2025247 NA 136 01/26/20258 K 5.1 01/26/2025247 CL 100 01/26/2025247 CO2 20 (L) 01/26/2025247 BUN 19 01/26/2025247 CREATININE 3.37 (H) 01/26/2025247 CREATININE 9.99 (H) 10/27/2019 0545 CALCIUM 9.0 01/26/2025247 PHOS 5.3 (H) 01/26/2025247 IV Drips and Rate/Dose heparin, 5-30 Units/kg/hr, Last Rate: 7 Units/kg/hr (01/26/251218) sodium chloride, 20 mL/hr, Last Rate: 20 mL/hr (01/25/252003) Safety - Before each treatment: Dialysis Machine No.: [id number] RO Machine Number: [id number] Dialyzer Lot No.: [id number] Tubing Lot Number: [id number] All Connections Secure: Yes Venous Parameters Set: Yes Arterial Parameters Set: Yes NS Bag: Yes Saline Line Double Clamped: Yes Dialyzer: Nipro Prime Volume (mL): 200 mL RO Machine Number: [id number] RO Machine Log Sheet Completed: Yes Machine Alarm Self Test: Completed, Passed (1226) (01/26/25 122) Air Foam Detector: Tested, Proper Function, pH Reading Extracorporeal Circuit Tested for Integrity: Yes Machine Conductivity: 13.9 Manual Conductivity: 14 Manual Ph: 7.4 Bleach Test (Neg): Yes Bath Temperature: 36 C (96.8 F) Conductivity Meter Serial #: [id number] Machine Functioning Alarm Free? Yes Dialysis Bath: K+ (Potassium): 2 Ca+ (Calcium): 2.5 Na+ (Sodium): 137 HCO3 (Bicarb): 35 Bicarbonate Concentrate Lot No.: [id number] Acid Concentrate Lot No.: [id number] Chlorine Testing - Before each treatment and [...] -- -- -- -- tx completed, [id number] [id number] Vital Signs Patient Vitals for the past [...] Name: Jun Snyder Patient : 1965 Acct: [id number] Date of Admission: 01/19/2025 Room[facility]: [facility] A Code Status: Full Code Allergies: Allergies Allergen Reactions Lisinopril Swelling and Angioedema Diagnosis: Patient Active Problem List Diagnosis Anemia Paroxysmal A-fib ([facility]) ([facility]) HTN (hypertension) ESRD on hemodialysis ([facility]) ([facility]) IgA nephropathy determined by biopsy of kidney Diverticulosis Nonrheumatic aortic valve stenosis Calcification of abdominal aorta ([facility]) Missed vaccination due to patient refusal Tobacco abuse Alcohol use disorder in remission Atrial flutter, unspecified type ([facility]) RSV (acute bronchiolitis due to respiratory syncytial virus) Aortic stenosis Upper GI bleed S/P AVR Acute hypoxic respiratory failure ([facility]) Acute encephalopathy Pneumoperitoneum Gastric ulceration Severe malnutrition ([facility]) ([facility]) Pleural effusion Peritonitis due to fungus ([facility]) History of abdominal surgery Leg DVT (deep venous thromboembolism), acute, left ([facility]) 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, 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 of skin ([facility]) Tracheostomy dependence ([facility]) Leukocytosis Decubitus ulcer of sacral region, unstageable ([facility]) Pneumonia of both lungs due to methicillin susceptible Staphylococcus aureus (MSSA) ([facility]) Sacral osteomyelitis ([facility]) ([facility]) Acute respiratory failure with hypoxia ([facility]) [J96.01] Tracheostomy care ([facility]) [Z43.0] 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[facility]) 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 Complication of tracheostomy ([facility]/HCC) (HCC) BRBPR (bright red blood per rectum) [...] - Before each treatment: Dialysis Machine No.: [id number] RO Machine Number: [id number] Dialyzer Lot No.: [id number] Tubing Lot Number: [id number] All Connections Secure: Yes Venous Parameters Set: Yes Arterial Parameters Set: Yes NS Bag: Yes Saline Line Double Clamped: Yes Dialyzer: Nipro Prime Volume (mL): 200 mL RO Machine Number: [id number] RO Machine Log Sheet Completed: Yes Machine Alarm Self Test: Completed, Passed (test passed at 0923) (01/24/25 0925) Air Foam Detector: Tested, Proper Function, pH Reading Extracorporeal Circuit Tested for Integrity: Yes Machine Conductivity: 13.8 Manual Conductivity: 13.8 Manual Ph: 7.2 Bleach Test (Neg): Yes (water check negative at 0910) Bath Temperature: 36 C (96.8 F) Conductivity Meter Serial #: [id number] Machine Functioning Alarm Free? Yes Dialysis Bath: K+ (Potassium): 3 Ca+ (Calcium): 2.5 Na+ (Sodium): 137 HCO3 (Bicarb): 35 Bicarbonate Concentrate Lot No.: [id number] Acid Concentrate Lot No.: [id number] Chlorine Testing - Before each treatment and [...] Name: Jun Snyder Patient : 1965 Acct: [id number] Date of Admission: 01/19/2025 Room/Bed: T3-321/T3-321 A Code Status: Full Code Allergies: Allergies Allergen Reactions Lisinopril Swelling and Angioedema Diagnosis: Patient Active Problem List Diagnosis Anemia Paroxysmal A-fib ([facility]) ([facility]) HTN (hypertension) ESRD on hemodialysis ([facility]) ([facility]) IgA nephropathy determined by biopsy of kidney Diverticulosis Nonrheumatic aortic valve stenosis Calcification of abdominal aorta ([facility]) Missed vaccination due to patient refusal Tobacco abuse Alcohol use disorder in remission Atrial flutter, unspecified type [facility] [facility]) RSV (acute bronchiolitis due to respiratory syncytial virus) Aortic stenosis Upper GI bleed S/P AVR Acute hypoxic respiratory failure ([facility]) Acute encephalopathy Pneumoperitoneum Gastric ulceration Severe malnutrition ([facility]) ([facility]) Pleural effusion Peritonitis due to fungus ([facility]) History of abdominal surgery Leg DVT (deep venous thromboembolism), acute, left ([facility]) 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, 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 of skin ([facility]) Tracheostomy dependence ([facility]) Leukocytosis Decubitus ulcer of sacral region, unstageable ([facility]) Pneumonia of both lungs due to methicillin susceptible Staphylococcus aureus (MSSA) ([facility]) Sacral osteomyelitis ([facility]) ([facility]) Acute respiratory failure with hypoxia ([facility]) [J96.01] Tracheostomy care ([facility]) [Z43.0] 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[facility]) 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 Complication of tracheostomy ([facility]) ([facility]) Treatment: Hemodialysis 1:1 Priority: Routine Location: [...] Other (Comment) None None None None -- 01/22/25 0851 Alert (0) None (Room air) Diminished Soft;Nondistended [...] 4.18 (H) 01/22/2025418 CREATININE 9.99 (H) 10/27/2019 0545 CALCIUM 9.8 01/22/2025418 PHOS 6.8 (H) 01/22/2025418 IV Drips and Rate/Dose Safety - Before each treatment: Dialysis Machine No.: [id number] RO Machine Number: [id number] Dialyzer Lot No.: [id number] Tubing Lot Number: [id number] All Connections Secure: Yes Venous Parameters Set: Yes Arterial Parameters Set: Yes NS Bag: Yes Saline Line Double Clamped: Yes Dialyzer: Nipro Prime Volume (mL): 250 mL RO Machine Number: [id number] RO Machine Log Sheet Completed: Yes Machine Alarm Self Test: Completed, Passed (01/22/25850) Air Foam Detector: Tested, Proper Function, pH Reading Extracorporeal Circuit Tested for Integrity: Yes Machine Conductivity: (13.8) Manual Conductivity: 14 Manual Ph: 7.2 Bleach Test (Neg): Yes Bath Temperature: 36 C (96.8 F) Conductivity Meter Serial #: [id number] Machine Functioning Alarm Free? Yes Dialysis Bath: K+ (Potassium): 2 Ca+ (Calcium): 2.5 Na+ (Sodium): 137 HCO3 (Bicarb): 35 Bicarbonate Concentrate Lot No.: [id number] Acid Concentrate Lot No.: [id number] Chlorine Testing - Before each treatment and [...] 94 12 100 % 01/22/25 1145 (!) /44 -- -- 108 12 99 % 01/22/25 1130 114/67 -- -- 98 (!) 11 99 % 01/22/25 1125 111/64 -- -- 111 24 100 % 01/22/25 1120 99/60 -- -- 101 (!) 11 97 % 01/22/25 1115 /62 -- -- 105 18 96 % 01/22/25 1110 (!) 89/ -- -- 101 22 96 % 01/22/25 [...] 113 22 98 % 01/22/25 1031 (!) 87/ -- -- 106 (!) 27 99 % [...] Name: Jun Snyder Patient : 1965 Acct: [id number] Date of Admission: 01/19/2025 Room[facility]: [facility] A Code Status: Full Code Allergies: Allergies Allergen Reactions Lisinopril Swelling and Angioedema Diagnosis: Patient Active Problem List Diagnosis Anemia Paroxysmal A-fib ([facility]) ([facility]) HTN (hypertension) ESRD on hemodialysis ([facility]) ([facility]) IgA nephropathy determined by biopsy of kidney Diverticulosis Nonrheumatic aortic valve stenosis Calcification of abdominal aorta ([facility]) Missed vaccination due to patient refusal Tobacco abuse Alcohol use disorder in remission Atrial flutter, unspecified type ([facility]) RSV (acute bronchiolitis due to respiratory syncytial virus) Aortic stenosis Upper GI bleed S/P AVR Acute hypoxic respiratory failure ([facility]) Acute encephalopathy Pneumoperitoneum Gastric ulceration Severe malnutrition ([facility]) ([facility]) Pleural effusion Peritonitis due to fungus ([facility]) History of abdominal surgery Leg DVT (deep venous thromboembolism), acute, left ([facility]) 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, 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 of skin ([facility]) Tracheostomy dependence ([facility]) Leukocytosis Decubitus ulcer of sacral region, unstageable ([facility]) Pneumonia of both lungs due to methicillin susceptible Staphylococcus aureus (MSSA) ([facility]) Sacral osteomyelitis ([facility]) ([facility]) Acute respiratory failure with hypoxia ([facility]) [J96.01] Tracheostomy care ([facility]) [Z43.0] 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[facility]) 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 Complication of tracheostomy (CMS/HCC) (HCC) Treatment: Hemodialysis 1:1 Priority: Routine Location: [...] Beltran RN Incapacitated Nurse Education Completed: Yes P.Alex HBsAg ONLY: Date Drawn: December 26, 2024 [...] Lab Results Component Value Date/Time WBC 10.5 01/20/2025513 HGB 8.2 (L) 01/20/2025800 HGB 9.4 11/11/2024 0230 HCT 25.8 (L) 01/20/2025800 PLT 279 01/20/2025513 NA 135 (L) 01/20/2025513 K 4.8 01/20/2025513 CL 98 01/20/2025513 CO2 22 01/20/2025513 BUN 91 (H) 01/20/2025513 CREATININE 4.31 (H) 01/20/2025513 CREATININE 9.99 (H) 10/27/2019544 CALCIUM 9.2 01/20/2025513 PHOS 6.1 (H) 01/20/2025513 IV Drips and Rate/Dose pantoprazole (ProtoNix) 80 mg in sodium chloride 0.9 % 100 mL (0.8 mg/mL) infusion, 8 mg/hr Safety - Before each treatment: Dialysis Machine No.: [id number] Machine Number: [id number] Dialyzer Lot No.: [id number] Tubing Lot Number: [id number] All Connections Secure: Yes Venous Parameters Set: Yes Arterial Parameters Set: Yes NS Bag: Yes Saline Line Double Clamped: Yes Dialyzer: Nipro Prime Volume (mL): 200 mL RO Machine Number: [id number] RO Machine Log Sheet Completed: Yes Machine Alarm Self Test: Completed, Passed (1000) (01/20/25 1000) Air Foam Detector: Tested, Proper Function, pH Reading Extracorporeal Circuit Tested for Integrity: Yes Machine Conductivity: 13.6 Manual Conductivity: 13.8 Manual Ph: 7.2 Bleach Test (Neg): Yes Bath Temperature: 36 C (96.8 F) Conductivity Meter Serial #: [id number] Machine Functioning Alarm Free? Yes Dialysis Bath: K+ (Potassium): 2 Ca+ (Calcium): 2.5 Na+ (Sodium): 137 HCO3 (Bicarb): 35 Bicarbonate Concentrate Lot No.: [id number] Acid Concentrate Lot No.: [id number] Chlorine Testing - Before each treatment and [...] 80 600 Yes ID at bedside, UF [id number] 01/20/25 1130 400 mL/min 600 ml/hr -140 [...] -- 87 -- -- 01/20/25 1150 (!) [id number] -- -- 91 -- -- 01/20/25 1145 [...] Critical lab value (Hgb 6.6) Provider Name: [facility] icing maker ATT Provider Role: Attending physician Method of [...] Education: Verbalized Understanding documented in this encounter [facility] 02-01-2025 Miscellaneous Notes Formattin g of this note might be different from the original. 7000 created in [facility] per TCC request. Facility notified via [facility]. Authorization approved for the [facility] through 02/02/25, discharge orders placed, ROSENDO completed. Transportation placed and confirmed for today 02/01/25 at 330pm to the [facility], physician/patient/racing secretary/RN aware. CASING RUNNING MACHINE TENDER tasked to send 7000 and DC summary. Hep B panels, 3 days of HD flowsheets, MAR and OPAT sent to the [facility] via [facility]. Call placed to the [facility] to confirm able to still take patient [...] Nutrition Support Outcome: Progressing Updates placed to [facility] per [facility] request. Await review and response [...] Nutrition Support Outcome: Progressing Message sent to Small Animal Veterinarian to start [facility] auth for [facility]. Problem: Pain - Adult Goal: Verbalizes/displays adequate [...] order to start auth to return to [facility] per previous TCC note of plan. Updates [...] or Improved Outcome: Progressing Updates placed to [facility] Return - [facility] via [facility] per TCC request. Await review and response regarding ability to accept. TCC notified. Electronically signed by [facility] Sabino Rodrigues Tasked [facility] to send updates to [facility], per their request. Warfarin bridging per MD notes, patient will need NEW auth for return to [facility]. Problem: Pain - Adult Goal: [...] or improved Outcome: Progressing Flowsheets (Taken 01/26/2025 08) Care Plan - Patient's Chronic Conditions and [...] Outcome: Progressing [facility] T[facility]. Care Management Progress Note PCU transfer pending. Received one unit PRBC this AM for low Hgb. HD today. Heparin drip ongoing. IVAB (plan for 6 week course). Wound vac to sacral wound. Room Air. Dysphagia diet; pureed. DC plan - [facility]. Facility updated via careport. CASING RUNNING MACHINE TENDER asked to send dialysis note per their request. CM to continue following for DC planning Length of Stay (Days): 5 GMLOS: 4.5 Problem: Pain - Adult Goal: Verbalizes/displays adequate comfort level or baseline comfort level Outcome: Progressing Flowsheets (Taken 01/25/2025 0800) Verbalizes/displays adequate comfort level or baseline [...] fall injury Outcome: Progressing Flowsheets (Taken 01/25/2025 0800) Free from fall injury: Instruct family/caregiver [...] maintained or improved Outcome: Progressing Flowsheets (Taken 01/25/2025 0800) Care Plan - Patient's Chronic Conditions [...] Early Mobility/Exercise Safety Screen: Activity: Bed mobility -[facility] Score: Bed activity LDAs Peripheral IV 01/19/25 Right Forearm (Active) Number of days: 4 Peripheral IV 01/23/25 Anterior;Distal;Right Forearm (Active) Number of days: 0 Enterostomy Gastric 20 Fr. LUQ (Active) Number of days: 70 - Central Line indicated: N/A - Payne indicated: N/A OPAT placed to [facility] via [facility] per TCC request. 01/25/25 1047 Rapid Rounds Attendance Laborer Syrup Machine Planned Discharge Disposition SNF Today we still await Administering IV medications;Credit Verification Clerk recommendations (comment);Clinical stability;Symptomatic control;Post-discharge arrangement completion (comment) Patient remains on MICU. S/P colonoscopy 01/24-negative for active bleeding. Heparin drip resumed post procedure. Wound vac to sacral wound; IVAB till 02/13; OPAT under chart review > media. Plan for MBSS. Room Air. DC plan - [facility] when medically appropriate. CM will continue to [...] Interventions Goal: Nutrition Support [facility]come: [facility] Procedure Date: 01/24/2025 12:37 PM Gender: Male Date of : 1965 Age: 59 Admit Type: Inpatient Note Status: Finalized Endoscopist: Chadd Davis MD, [id number] Procedure: Colonoscopy Indications: Evaluation of unexplained GI [...] by the physician, the nurse and the boat wrapper in the pre-procedure area in the procedure [...] anticoagulant use Procedure Code(s): --- Professional --- 72690, Colonoscopy, flexible; diagnostic, including collection of specimen(s) by brushing or washing, when performed (separate procedure) --- Technical --- 41365, Colonoscopy, flexible; diagnostic, including collection of specimen(s) by brushing or washing, when performed (separate procedure) Diagnosis Code(s): --- Professional --- K64.0, First degree hemorrhoids K92.1, Melena (includes Hematochezia) 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 All rights reserved. The codes documented in this report are preliminary and upon rules examiner review may be revised to meet current [...] Safety Screen: Activity: Bed mobility -HLM Score: Lying in bed LDAs Peripheral IV [...] Note: Diagnosis: Principal Problem: Complication of tracheostomy (CMS/HCC) ([facility]) Active Problems: Severe malnutrition (CMS/HCC) ([facility]) Chief Complaint: Jun Snyder is a 59 y.o. male with chief complaint of: trach complications, OM from decub Reason Palliative Following:Goals of Care Plan:Ongoing Goals of Care Discussions and Support Code Status: Full Code Medications: Palliative Care Not Managing Any Medications Nursing: Detention Care and Skin Integrity Social Work: Palliative [...] care team, reviewed Health Care Power of Rugby League Footballer (HCPOA) with patient. Patient agreeable to complete [...] bed. HCPOA completed with CM and SW; son Omar primary agent and Toma, patients SO, secondary agent. DC plan - return to [facility]. CM will continue to follow Length of Stay (Days): 1 GMLOS: 4.5 Images from the original note were not included. [facility] Palliative Care Transitions of Care Note Jun Snyder : 1965 ADMIT DATE: 01/19/2025 DISCHARGE DATE: TBD PRIMARY CARE PHYSICIAN: Leilani Troncoso CODE STATUS: Full Code DISCHARGE DIAGNOSES: Principal Problem: Complication of tracheostomy (CMS/HCC) ([facility]) Active Problems: Severe malnutrition (CMS/HCC) ([facility]) BRBPR (bright red blood per rectum) [...] to have bile peritonitis" 11/28/24: transferred to [facility] He ended up developing sacral ulcer and osteomyelitis at [facility]. He then ended up dislodging his tracheostomy, and was brought to [facility] ED for further care. Palliative care consulted for goals of care. Goals of care - Patient has capacity to make medical decisions - legal surrogate decision maker [place] Neslon, 1st alternate is significant other Toma - goals of care include: 1) to continue current management, continue with aggressive medical therapy, procedures, antibiotics at this time - planning to eventually discharge to [facility] - will forward chart to Palliative [...] AV replacement Supratherapeutic INR - [facility] Program Management Analyst valve in 09/2024 - coumadin held due to bleeding and supratherapeutic levels Chronic respiratory failure s/p tracheostomy Tracheostomy dislodgement - has been saturating well without trach on RA so has not been replaced FOLLOW UP TESTING, PENDING RESULTS OR REFERRALS AT TRANSITIONAL CARE VISIT: No DISPOSITION: Skilled Rehab Facility FACILITY/HOME CARE AGENCY NAME: [facility] Follow up with Palliative Care on patient to call. Reason for Outpatient/Home/ECF Palliative Care follow-up: Continue goals of care discussion SIGNED: Tex Cotto MD 01/25/2025, 11:45 AM Problem: Pain - Adult Goal: Verbalizes/displays adequate comfort level or baseline comfort level Outcome: Progressing Flowsheets (Taken 01/22/2025 0572) Verbalizes/displays adequate comfort level or baseline comfort [...] Safety: The patient was placed on a phototypesetting equipment monitor and vital signs, pulse oximetry, and [...] signed by this procedure note. [facility] Patient Name: Jun Snyder Procedure Date: 01/21/2025 9:59 AM Gender: Male Date of : 1965 Age: 59 Admit Type: Inpatient Note Status: Finalized Endoscopist: ELDON Alba MD, [id number] Procedure: Upper GI endoscopy Indications: Acute post [...] by the physician, the nurse and the boat wrapper in the pre-procedure area in the procedure [...] loss: None. Procedure Code(s): --- Professional --- 18308, Esophagogastroduodenoscopy, flexible, transoral; diagnostic, including collection of specimen(s) by brushing or washing, when performed (separate procedure) --- Technical --- 34113, Esophagogastroduodenoscopy, flexible, transoral; diagnostic, including collection of [...] posthemorrhagic anemia CPT copyright 2021 [employer] [place] [employer]. All rights reserved. The codes documented in this report are preliminary and upon rules examiner review may be revised to meet current [...] Care Plan Patient was transferred over from [facility] after self-dislodged tracheostomy this morning around [...] baseline comfort level Outcome: Progressing Flowsheets (Taken 01/19/2025799) Verbalizes/displays adequate comfort level or baseline comfort level: Encourage patient to monitor pain and request assistance Assess pain using appropriate pain scale Administer analgesics based on type and severity of pain and evaluate response Problem: Safety - Adult Goal: Free from fall injury Outcome: Progressing Flowsheets (Taken 01/19/2025799) Free from fall injury: Instruct family/caregiver on [...] and treatment plans Return referral [facility] per TCC request. Await review and response regarding ability to accept. TCC notified. 01/19/25 1300 Rapid Rounds Attendance Laborer Syrup Machine Planned Discharge Disposition SNF Today we still await Clinical stability;Credit Verification Clerk recommendations (comment);Symptomatic control;Post-discharge arrangement completion (comment) Patient admitted due to trach dislodgement. Patient was discharged from LTAC to the [facility]; there only a matter of hours per [...] He would like patient to return to [facility] SNF is able at DC. Does not want patient to return to [facility]. CASING RUNNING MACHINE TENDER asked to place referral to [facility]. CM will continue to follow for DC [...] improved Outcome: Progressing documented in this encounter [facility] 02-01-2025 History of Presen t illness Narrative Images from the original note were not included. [facility] - Infectious Diseases Advanced Practice Provider Progress [...] of use of antimicrobials. Mikala MORAN PA-C [facility] Infectious Disease Nephrology Progress Note Following for [...] 01/30/25 0047 01/30/25 1224 01/31/25 0010 01/31/25205102/01/25 011 WBC 8.8 -- 9.3 -- 7.9 HGB [...] not included. Speech-Language Pathology SPEECH LANGUAGE PATHOLOGY [facility] Dysphagia Treatment Note Patient Name: Jun [...] strategies. Plan & Recommendations Plan: Continue acute SPANISH INTERPRETER therapy per initial plan of care and [...] Expected End: 02/02/25 Resolved: 01/25/25 Therapy Time SPANISH INTERPRETER Individual Minutes Time In: 816 Time Out: 829 Minutes: 13 KARLA Salazar Hospitalist Progress Note Subjective: Admit Date: 01/19/2025 PCP: Leilani Troncoso Room#: 1C-144/1C-144 A Chief Complaint Patient presents with Tracheostomy Tube Change Brief Hospital course: Jun Snyder is a 59 y.o. male who who presented to [facility] 01/19 after inadvertent removal of his tracheostomy. He was transferred to [facility] ICU for surgical evaluation. On arrival [...] HD successfully. hemodynamically stable. Transferred out to [facility] 01/27 ID following for sacral osteomyelitis, s/p wound debridement to bone on 01/02, cultures grew E faecalis and Clostridium, continue with renally dosed ampicillin sulbactam for 6 weeks course through 02/13/2025, needs tunneled line, status post IR CVC tunneled line on 01/29 Nephrology following, on dialysis SPANISH INTERPRETER following PT/OT recommends SNF Patient will be [...] History: Diagnosis Date Acute renal failure (ARF) ([facility]) 10/19/2019 Anemia 12/30/2021 Calcification of abdominal aorta ([facility]) 10/08/202309/[address] abd Diverticulosis 10/08/2023 ESRD on hemodialysis ([facility]) ([facility]) 10/26/2019 Hemodialysis patient ([facility]) ([facility]) HTN (hypertension) 12/01/2022 Hypertension IgA nephropathy IgA nephropathy determined by biopsy of kidney 10/26/2019 Missed vaccination due to patient refusal 10/08/2023 Has a number of non-scientific based beliefs which interfere with his understanding and acceptance of the medical benefit of vaccination. Nonrheumatic aortic valve stenosis 10/08/2023 Paroxysmal A-fib ([facility]) ([facility]) 08/18/2023 Tobacco abuse 10/08/2023 Adult diet [...] this interval not displayed. BMP: Recent Labs 01/30/254601/31/25 0010 02/01/25 0114 NA 135* 138 136 [...] 226* PROT 7.3 7.4 PT/INR: Recent Labs 01/30/254601/31/250 02/01/25 0114 PROTIME 24.9* 22.4* 20.3* INR [...] by ID -S/p tunneled central line placement -SPANISH INTERPRETER follow, dysphagia diet -PT OT DC recommend [...] MD Division of Hospital Medicine Inpatient Medical Services/[facility] Anticoagulation Management Service ([facility]) Inpatient Warfarin Consult HPI: Jun Snyder is a 59 y.o. male admitted on 01/19/2025 for Complication of tracheostomy ([facility]) ([facility]) [J95.00] Past Medical History: Diagnosis Date Acute renal failure (ARF) ([facility]) 10/19/2019 Anemia 12/30/2021 Calcification of abdominal aorta ([facility]) 10/08/202309/[address] abd Diverticulosis 10/08/2023 ESRD on hemodialysis ([facility]) ([facility]) 10/26/2019 Hemodialysis patient ([facility]) ([facility]) HTN (hypertension) 12/01/2022 Hypertension IgA nephropathy IgA nephropathy determined by biopsy of kidney 10/26/2019 Missed vaccination due to patient refusal 10/08/2023 Has a number of non-scientific based beliefs which interfere with his understanding and acceptance of the medical benefit of vaccination. Nonrheumatic aortic valve stenosis 10/08/2023 Paroxysmal A-fib ([facility]) ([facility]) 08/18/2023 Tobacco abuse 10/08/2023 Patient is [...] dose accordingly 3. Will facilitate f/u at [facility] upon discharge Tiffanie Dial RPh [facility] is available daily [phone] via [employer]. If no response on [employer] Chat then please page [phone]. Images from the original note were not included. OCCUPATIONAL THERAPY [facility] Re-Evaluation Name/MRN: Jair Snyder ([id number]) Evaluation Date: 01/31/2025 Date of : 1965 Admission Date: 01/19/2025 2:13 AM Age: 59 y.o. Room/Bed: [facility] A Discharge Recommendation: Detention Facility Other: DME TBD Assessment IMPRESSION: OT [...] History: Diagnosis Date Acute renal failure (ARF) ([facility]) 10/19/2019 Anemia 12/30/2021 Calcification of abdominal aorta ([facility]) 10/08/202309/[address] abd Diverticulosis 10/08/2023 ESRD on hemodialysis ([facility]) ([facility]) 10/26/2019 Hemodialysis patient ([facility]) ([facility]) HTN (hypertension) 12/01/2022 Hypertension IgA nephropathy IgA nephropathy determined by biopsy of kidney 10/26/2019 Missed vaccination due to patient refusal 10/08/2023 Has a number of non-scientific based beliefs which interfere with his understanding and acceptance of the medical benefit of vaccination. Nonrheumatic aortic valve stenosis 10/08/2023 Paroxysmal A-fib ([facility]) ([facility]) 08/18/2023 Tobacco abuse 10/08/2023 Past Surgical History: Past Surgical History: Procedure Laterality Date APPENDECTOMY CARDIAC CATHETERIZATION N/A 10/09/2024 Performed by Bob Watson MD at [facility] Cardiac Cath/EP Lab CARDIAC CATHETERIZATION Bilateral 11/01/2024 Performed by Bob Watson MD at [facility] Cardiac Cath/EP Lab CARDIAC CATHETERIZATION N/A 11/01/2024 Performed by Bob Watson MD at [facility] Cardiac Cath/EP Lab COLONOSCOPY N/A 01/24/2025 Performed by Chadd Davis MD at [facility] ENDOSCOPY FISTULAGRAM (HISTORICAL) Left 09/15/2021 LEFT UPPER ARM HX AV FISTULA CREATION IR EMBOLIZATION 10/14/2024 IR EMBOLIZATION 10/14/2024 [facility] SPECIAL PROCEDURES IR FISTULAGRAM 08/07/2022 IR FISTULAGRAM 08/07/2022 [facility] IR IMAGING TONSILLECTOMY (HISTORICAL) Admission Diagnosis: Patient Active Problem List Diagnosis Date Noted Severe malnutrition ([facility]) ([facility]) 01/19/2025 Complication of tracheostomy ([facility]) ([facility]) 01/19/2025 care home (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 01/12/2025 Acute respiratory failure with hypoxia ([facility]) [J96.01] 01/08/2025 Tracheostomy care ([facility]) [Z43.0] 01/08/2025 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[facility]) 01/08/2025 Sacral osteomyelitis ([facility]) ([facility]) 01/03/2025 Pneumonia of both lungs due to methicillin susceptible Staphylococcus aureus (MSSA) ([facility]) 01/01/2025 Leukocytosis 12/30/2024 Decubitus ulcer of sacral region, unstageable ([facility]) 12/30/2024 Peritonitis due to fungus ([facility]) 11/30/2024 History of abdominal surgery 11/30/2024 Leg DVT (deep venous thromboembolism), acute, left ([facility]) 11/30/2024 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, 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 of skin ([facility]) 11/30/2024 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 Pleural effusion 11/28/2024 Gastric ulceration 2024 Atrial flutter, unspecified type ([facility]) 10/03/2024 RSV (acute bronchiolitis due to respiratory syncytial virus) 10/03/2024 Diverticulosis 10/08/2023 Nonrheumatic aortic valve stenosis 10/08/2023 Calcification of abdominal aorta ([facility]) 10/08/2023 Missed vaccination due to patient refusal 10/08/2023 Tobacco abuse 10/08/2023 Alcohol use disorder in remission 10/08/2023 Paroxysmal A-fib ([facility]) ([facility]) 08/18/2023 HTN (hypertension) 12/01/2022 ESRD on hemodialysis ([facility]) ([facility]) 10/26/2019 IgA nephropathy determined by biopsy of kidney 10/26/2019 BRBPR (bright red blood per rectum) 01/19/2025 Aortic stenosis 10/03/2024 Upper GI bleed 10/03/2024 S/P AVR 10/03/2024 Acute hypoxic respiratory failure ([facility]) 10/03/2024 Acute encephalopathy 10/03/2024 Pneumoperitoneum 10/03/2024 [...] Daily Activity Raw Score: 12 ADL Inpatient [facility] G-Code Modifier: CL Plan Pt would [...] of Care supervision is transferred to a [facility] Therapy Services Occupational Therapist. Goals and/or treatment plan was established in collaboration with patient/family/other representatives. Images from the original note were not included. Speech-Language Pathology SPEECH LANGUAGE PATHOLOGY [facility] Dysphagia Treatment Note Patient Name: Jun Snyder Evaluation Date: 01/31/2025 Date of : 1965 Admission Date: 01/19/2025 2:13 AM Age: 59 y.o. Room/Bed: [facility]144/[facility]144 A Subjective Patient alert and cooperative. Seen [...] diet and for oropharyngeal strengthening. Continue acute SPANISH INTERPRETER therapy per initial plan of care and [...] Expected End: 02/02/25 Resolved: 01/25/25 Therapy Time SPANISH INTERPRETER Individual Minutes Time In: 1454 Time Out: 1515 Minutes: 21 FRANKLIN Carmona Images from the original note were not included. OCCUPATIONAL THERAPY [facility] Name/MRN: Jair Snyder ([id number]) Date: 01/31/2025 Attempted OT re-eval once pt returned from dialysis, pt very fatigued. Initially responsive to OT then stops conversing and unable to remain roused. Will follow and attempt as able. RONNY Ramirez/Tameka Images from the original note were not included. [facility] - Infectious Diseases Advanced Practice Provider [...] of use of antimicrobials. Mikala MORAN PA-C [facility] Infectious Disease Images from the original note were not included. OCCUPATIONAL THERAPY [facility] Name/MRN: Jair Snyder ([id number]) Date: 01/31/2025 Attempted OT re-eval this AM, [...] at 01/31/2025 1002 Last data filed at 01/30/20251999 Gross per [...] any questions or concerns Bree Molina APRN PANTS PRESSER A-G WIRED MUSIC OPERATOR [facility] [phone] Pt seen and examined independently by me. I reviewed with DENIA-SAMIA the medical history and the findings on physical examination. I discussed the patient s diagnosis and concur with the treatment plan as documented in his note. Please call [phone] or message me through [employer] with any questions or concerns. [facility] Anticoagulation Management Service ([facility]) Inpatient Warfarin Consult HPI: Jun Snyder is a 59 y.o. male admitted on 01/19/2025 for Complication of tracheostomy ([facility]) ([facility]) [J95.00] Past Medical History: Diagnosis Date Acute renal failure (ARF) ([facility]) 10/19/2019 Anemia 12/30/2021 Calcification of abdominal aorta ([facility]) 10/08/202309/[address] abd Diverticulosis 10/08/2023 ESRD on hemodialysis ([facility]) ([facility]) 10/26/2019 Hemodialysis patient ([facility]) ([facility]) HTN (hypertension) 12/01/2022 Hypertension IgA nephropathy IgA nephropathy determined by biopsy of kidney 10/26/2019 Missed vaccination due to patient refusal 10/08/2023 Has a number of non-scientific based beliefs which interfere with his understanding and acceptance of the medical benefit of vaccination. Nonrheumatic aortic valve stenosis 10/08/2023 Paroxysmal A-fib ([facility]) ([facility]) 08/18/2023 Tobacco abuse 10/08/2023 Patient is [...] dose accordingly 3. Will facilitate f/u at [facility] upon discharge Tiffanie Dial RPh [facility] is available daily [phone] via [employer]. If no response on [employer] Chat then please page [phone]. Hospitalist Progress Note Subjective: Admit Date: 01/19/2025 PCP: Leilani Troncoso Room#: 1C-144/1C-144 A Chief Complaint Patient presents with Tracheostomy Tube Change Brief Hospital course: Jun Snyder is a 59 y.o. male who who presented to [facility] 01/19 after inadvertent removal of his tracheostomy. He was transferred to [facility] ICU for surgical evaluation. On arrival [...] HD successfully. hemodynamically stable. Transferred out to [facility] 01/27 ID following for sacral osteomyelitis, s/p wound debridement to bone on 01/02, cultures grew E faecalis and Clostridium, continue with renally dosed ampicillin sulbactam for 6 weeks course through 02/13/2025, needs tunneled line, status post IR CVC tunneled line on 01/29 Nephrology following, on dialysis SPANISH INTERPRETER following PT recommends SNF Interval History: 01/31/2025-No overnight issues. Patient is seen and examined Patient is resting in his bed Dialysis today Denies any new acute complaints Labs reviewed, ESRD picture, hemoglobin 8.8, stable Case and plan discussed with patient and bedside nurse. All questions answered. Past Medical History: Past Medical History: Diagnosis Date Acute renal failure (ARF) ([facility]) 10/19/2019 Anemia 12/30/2021 Calcification of abdominal aorta ([facility]) 10/08/202309/[address] abd Diverticulosis 10/08/2023 ESRD on hemodialysis ([facility]) ([facility]) 10/26/2019 Hemodialysis patient ([facility]) ([facility]) HTN (hypertension) 12/01/2022 Hypertension IgA nephropathy IgA nephropathy determined by biopsy of kidney 10/26/2019 Missed vaccination due to patient refusal 10/08/2023 Has a number of non-scientific based beliefs which interfere with his understanding and acceptance of the medical benefit of vaccination. Nonrheumatic aortic valve stenosis 10/08/2023 Paroxysmal A-fib ([facility]) ([facility]) 08/18/2023 Tobacco abuse 10/08/2023 Adult diet [...] ALKPHOS 218* PROT 7.3 PT/INR: Recent Labs 01/29/257 01/30/25 0047 01/31/25 0010 PROTIME 24.0* 24.9* [...] 20 mL/hr, Last Rate: 20 mL/hr (01/30/25 7698) Assessment Data: (CAT1) Reviewed 2 notes from [...] by ID -S/p tunneled central line placement -SPANISH INTERPRETER follow, dysphagia diet -PT OT DC planning [...] MD Division of Hospital Medicine Inpatient Medical Services/[facility] Anticoagulation Management Service ([facility]) Inpatient Warfarin Consult HPI: Jun Snyder is a 59 y.o. male admitted on 01/19/2025 for Complication of tracheostomy ([facility]) ([facility]) [J95.00] Past Medical History: Diagnosis Date Acute renal failure (ARF) ([facility]) 10/19/2019 Anemia 12/30/2021 Calcification of abdominal aorta ([facility]) 10/08/202309/[address] abd Diverticulosis 10/08/2023 ESRD on hemodialysis ([facility]) ([facility]) 10/26/2019 Hemodialysis patient ([facility]) ([facility]) HTN (hypertension) 12/01/2022 Hypertension IgA nephropathy IgA nephropathy determined by biopsy of kidney 10/26/2019 Missed vaccination due to patient refusal 10/08/2023 Has a number of non-scientific based beliefs which interfere with his understanding and acceptance of the medical benefit of vaccination. Nonrheumatic aortic valve stenosis 10/08/2023 Paroxysmal A-fib ([facility]) ([facility]) 08/18/2023 Tobacco abuse 10/08/2023 Patient is [...] will continue to hold warfarin. Please notify [facility] when able to resume warfarin. 2. Monitor for s/s of bleeding and drug interactions. Will adjust dose accordingly 3. Will facilitate f/u at [facility] upon discharge Fatuma Odonnell RPh [facility] is available daily [phone] via [employer] Chat. If no response on [employer] Chat then please page [phone]. Images from the original note were not included. OCCUPATIONAL THERAPY [facility] Name/MRN: Jair Snyder ([id number]) Date: 01/30/2025 Attempted OT services however, Pt [...] candidate for diet upgrade. Christina Limon MS, CCC/SPANISH INTERPRETER Nutrition Assessment Type and Reason for Visit: [...] Severe who remains admitted after presenting to [facility] on 01/19 after inadvertent removal of his tracheostomy. He was transferred to [facility] ICU for surgical evaluation, however pt was maintaining appropriate O2 saturations on room air and the decision was made to leave the tracheostomy out. Pt transferred to [facility] later that day (01/19). Course [...] MWF schedule with Nephrology following. Transferred to [facility] 01/27. ID continues following for sacral osteomyelitis and recs IV Unasyn x 6 weeks--> stop date 02/13. Course c/b anxiousness and paranoia, often refusing care and wound dressing changes. In terms of nutrition, pt was only receiving nutrition via PEG SENIOR CHEMICAL ENGINEER. He was NPO 01/19, Nepro @ 50mls/hr initiated 01/20 which ran until pt was made NPO/CLD for colonoscopy prep 01/23. Remained NPO 01/24, underwent MBSS 01/25 with recs for pureed/thin which remains his current diet with SPANISH INTERPRETER following and recommending the same. PO intake [...] bedscale, 10/31: 200#, 11/28: 161#, 01/18: 142#) [place] Body Weight (lbs) (Calculated): 166 lbs [place] Body Weight (Kg) (Calculated): 75 kg % [place] Body Weight (Calculated): 70.5 % BMI (kg/m2) [...] soon to determine Marilu Pollock RD Contact: *[phone] Images from the original note were not included. PHYSICAL THERAPY [facility] Treatment Note Name/MRN: Jair Snyder ([id number]) Date of : 1965 Age: 59 y.o. Room/Bed: 1C-144/1C-144 A Discharge Recommendation: Detention Facility Other: tbd Assessment Pt requires mod [...] Raw Score (No Stairs) : 7 JH-HLM -HLM Score: Sat at edge of bed Goals [...] Timed Code Treatment Minutes: (2FA) Jocelin Ramirez SENIOR CHEMICAL ENGINEER Cosigned by Betty Grady, PT at 01/30/2025 1:28 PM EDT Patient receiving other care, will attempt smoking cessation counseling at a later date. Images from the original note were not included. [facility] - Infectious Diseases Advanced Practice Provider [...] -- -- -- 1.778 m (5' 10") 05/06/25 0737 146/97 (!) 35.8 C (96.4 F) [...] be of moderate complexity. Mikala MORAN PA-C [facility] Infectious Disease Hospitalist Progress Note Subjective: Admit Date: 01/19/2025 PCP: Leilani Troncoso Room#: 1C-750/1C-144 A Chief Complaint Patient presents with Tracheostomy Tube Change Brief Hospital course: Jun Snyder is a 59 y.o. male who who presented to [facility] 01/19 after inadvertent removal of his tracheostomy. He was transferred to [facility] ICU for surgical evaluation. On arrival [...] HD successfully. hemodynamically stable. Transferred out to [facility] 01/27 ID following for sacral osteomyelitis, s/p wound debridement to bone on 01/02, cultures grew E faecalis and Clostridium, continue with renally dosed ampicillin sulbactam for 6 weeks course through 02/13/2025, needs tunneled line, status post IR CVC tunneled line on 01/29 Nephrology following, on dialysis SPANISH INTERPRETER following PT recommends SNF Interval History: 01/30/2025-No [...] History: Diagnosis Date Acute renal failure (ARF) ([facility]) 10/19/2019 Anemia 12/30/2021 Calcification of abdominal aorta ([facility]) 10/08/202309/[address] abd Diverticulosis 10/08/2023 ESRD on hemodialysis ([facility]) ([facility]) 10/26/2019 Hemodialysis patient ([facility]) ([facility]) HTN (hypertension) 12/01/2022 Hypertension IgA nephropathy [...] Net 600 ml LABS: CBC: Recent Labs 01/28/2551501/29/2533601/30/2546 WBC 9.8 9.4 8.8 RBC 3.01* 3.06* 3.15* HGB 8.5* 8.6* 8.7* HCT 26.3* 27.3* 28.1* MCV 87.4 89.2 89.2 RDW 19.0* 19.0* 18.9* PLT 240 271 276 BMP: Recent Labs 01/28/2532 01/29/2533601/30/2546 NA 137 134* 135* K 3.6 3.7 3.7 CL 98 94* 99 CO2 26 23 23 BUN 14 21 10 CREATININE 3.37* 4.17* 2.56* GLUCOSE 82 80 88 CALCIUM 10.0 9.8 9.6 ANIONGAP 13 17* 13 LIVER PROFILE:No results for input(s): "AST", "ALT", "BILITOT", "ALKPHOS", "PROT" in the last 72 hours. No lab exists for component: LABALBU PT/INR: Recent Labs 01/28/2551501/29/2533601/30/2546 PROTIME 21.9* 24.0* 24.9* INR 2.2* 2.4* [...] by ID -S/p tunneled central line placement -SPANISH INTERPRETER follow, dysphagia diet -PT OT DC planning [...] MD Division of Hospital Medicine Inpatient Medical Services/[facility] Progress Note Mr. Jun Snyder is [...] status and labs. Please message me through [employer] chat with any questions or concerns. Wellington Nicole MD 01/30/2025 9:08 AM [facility] [address] [place] [address], [address] [place] [address] Office: [phone] Images from the original note were not included. Speech-Language Pathology SPEECH LANGUAGE PATHOLOGY [facility] Dysphagia Treatment Note Patient Name: Jun [...] Expected End: 02/02/25 Resolved: 01/25/25 Therapy Time SPANISH INTERPRETER Individual Minutes Time In: 1438 Time Out: 1456 Minutes: 18 FRANKLIN Bailon Images from the original note were not included. [facility] - Infectious Diseases Attending Progress Note [...] -- 53.1 kg (117 lb 1 oz) 01/29/2599 132/63 36.4 C (97.5 F) Temporal -- -- 93 % -- 01/28/252029 141/75 36 C (96.8 F) Temporal -- -- 94 % -- 01/28/25 1512 108/73 36.3 C (97.3 F) Temporal 79 18 99 % -- Physical Exam Vitals and nursing note reviewed. Constitutional: Comments: comfortable Labs: Lab Results Component Value Date/Time NA 134 (L) 01/29/2025 033 K 3.7 01/29/2025336 CL 94 (L) 01/29/2025 0337 CO2 23 01/29/2025 0337 BUN 21 01/29/2025 0337 CREATININE 4.17 (H) 01/29/2025 033 CREATININE 9.99 (H) 10/27/2019 0545 GLUCOSE 80 01/29/2025336 CALCIUM 9.8 01/29/2025 0337 PROT 7.6 01/22/2025 0419 BILITOT 0.9 01/22/2025 0419 ALKPHOS 274 (H) 01/22/2025 0419 AST 51 (H) 01/22/2025 0419 ALT 44 (H) 01/22/2025 0419 PROCAL 4.10 (H) 12/31/2024 0108 PROCAL 4.25 (H) 11/23/2024 1430 PROCAL 3.47 (H) 11/01/2024 0732 Lab Results Component Value Date/Time WBC 9.4 01/29/20257 HGB 8.6 (L) 01/29/2025 033 HGB 9.4 11/11/2024 0230 HCT 27.3 (L) 01/29/2025 033 PLT 271 01/29/2025 0337 GRANULOCYTES 62.2 10/27/2019 0545 LYMPHOPCT 13.7 (L) 01/23/2025 151 LYMPHOPCT 10 (L) 01/01/2025 0100 MONOPCT 13.7 [...] be of low complexity. Radha Yee MD [facility] Progress Note Mr. Jun Snyder is [...] Nicole MD 01/29/2025 10:13 AM [facility] [address], [address] [place] [address] Office: [phone] Images from the original note were not included. Hospitalist Progress Note 01/29/2025 Subjective: Admit Date: 01/19/2025 PCP: Leilani Troncoso Room#: 1C-144/1C-144 A Brief Hospital Summary: Jun Snyder is a 59 y.o. male who who presented to [facility] 01/19 after inadvertent removal of his tracheostomy. He was transferred to [facility] ICU for surgical evaluation. On arrival [...] HD successfully. hemodynamically stable. Transferred out to [facility] 01/27 Interval History: No overnight issues. Patient returned from HD Resting in bed comfortably No complaints Phlegm much decreased today Afebrile vss Reported he declined wound care for dressing change today Adult diet Dysphagia - Pureed 3 Day Weight Change: Unable to Calculate 24HR INTAKE/OUTPUT: Intake/Output Summary (Last 24 hours) at 01/29/2025 0830 Last data filed at 01/29/2025 0651 Gross per 24 hour Intake 800 ml Output -- Net 800 ml Past Medical History: Past Medical History: Diagnosis Date Acute renal failure (ARF) (HCC) 10/19/2019 Anemia 12/30/2021 Calcification of abdominal aorta ([facility]) 10/08/202309/[address] abd Diverticulosis 10/08/2023 ESRD on hemodialysis ([facility]) ([facility]) 10/26/2019 Hemodialysis patient ([facility]) ([facility]) HTN (hypertension) 12/01/2022 Hypertension IgA nephropathy IgA nephropathy determined by biopsy of kidney 10/26/2019 Missed vaccination due to patient refusal 10/08/2023 Has a number of non-scientific based beliefs which interfere with his understanding and acceptance of the medical benefit of vaccination. Nonrheumatic aortic valve stenosis 10/08/2023 Paroxysmal A-fib ([facility]) ([facility]) 08/18/2023 Tobacco abuse 10/08/2023 LABS: CBC: Recent Labs 01/27/25 0006 01/27/25214601/28/25 0516 01/29/25 0337 WBC 10.0 -- 9.8 9.4 RBC 3.26* -- 3.01* 3.06* HGB 9.0* 8.4* 8.5* 8.6* HCT 28.3* 26.3* 26.3* 27.3* MCV 86.8 -- 87.4 89.2 RDW 19.1* -- 19.0* 19.0* PLT 273 -- 240 271 BMP: Recent Labs 01/27/25 00001/28/25 0632 01/29/25 0337 NA 139 137 134* [...] for component: LABALBU PT/INR: Recent Labs 01/27/25 00001/28/25 0516 01/29/25 0337 PROTIME 19.9* 21.9* 24.0* INR 1.9* 2.2* 2.4* CARDIAC ENZYMES: No results for input(s): "TROPONINI" in the last 72 hours. Procalcitonin: No results found for: "PROCAL" COVID-19 PCR: No results for input(s): "COVID19" in the last 72 hours. Encounter Date: 01/19/25 ECG 12 lead Result Value Heart Rate 93 QRSD Interval 113 QT Interval 413 QTC Interval 515 P [place] 69 QRS [place] 93 T Wave [place] 87 NH Interval 148 Impression Sinus rhythm Left atrial [...] sodium chloride 0.9 % 100 mL IVPB (Add-Cushing), 3,000 mg, IntraVENous, q24h, Radha Yee MD, [...] q5 min PRN, Earlene Lozano APRN - PANTS PRESSER, 5 mg at 01/25/25 1846 metoprolol tartrate (Lopressor) tablet 25 mg, 25 mg, Per G Tube, BID, Earlene Lozano APRN - PANTS PRESSER, 25 mg at 01/28/25 2222 midodrine (Proamatine) [...] mg, 5 mg, IntraVENous, q6h PRN, Sangeeta Sanchess, DO, 5 mg at 01/26/25 0134 sodium chloride 0.9 % infusion, 20 mL/hr, IntraVENous, Continuous, Inés Cotto PA-C, Last Rate: 20 mL/hr at 01/25/252003, 20 mL/hr at 01/25/252003 sodium chloride 0.9 % infusion, 250 mL/hr, IntraVENous, PRN, Sangeeta Sanchess, DO sodium chloride 0.9 % infusion, 250 [...] by ID Ordered tunneled central line placement SPANISH INTERPRETER follow, dysphagia diet PT OT DC planning Past Medical History: Diagnosis Date Acute renal failure (ARF) ([facility]) 10/19/2019 Anemia 12/30/2021 Calcification of abdominal aorta ([facility]) 10/08/202309/[address] abd Diverticulosis 10/08/2023 ESRD on hemodialysis ([facility]) ([facility]) 10/26/2019 Hemodialysis patient ([facility]) ([facility]) HTN (hypertension) 12/01/2022 Hypertension IgA nephropathy IgA nephropathy determined by biopsy of kidney 10/26/2019 Missed vaccination due to patient refusal 10/08/2023 Has a number of non-scientific based beliefs which interfere with his understanding and acceptance of the medical benefit of vaccination. Nonrheumatic aortic valve stenosis 10/08/2023 Paroxysmal A-fib ([facility]) ([facility]) 08/18/2023 Tobacco abuse 10/08/2023 Plan As [...] MD Division of Hospitalist Medicine Inpatient Medical Services/[facility] Images from the original note were not included. [facility] Wound Care Progress Note Jun Snyder AGE: 59 y.o. GENDER: male : 1965 Subjective: HISTORY of PRESENT ILLNESS HPI Jnu Snyder is a 59 y.o. male who presents for a wound follow up. HPI: Jun is a 59 yo male with a PMH of Trach and peg, HTN, paroxysmal a-fib, R occipital ICH, Tobacco abuse, ARF - dialysis (TTS; LUE AVF), diverticulosis, IgA nephropathy, severe that presented to [facility] ED from a facility due to [...] History: Diagnosis Date Acute renal failure (ARF) ([facility]) 10/19/2019 Anemia 12/30/2021 Calcification of abdominal aorta ([facility]) 10/08/202309/[address] abd Diverticulosis 10/08/2023 ESRD on hemodialysis ([facility]) ([facility]) 10/26/2019 Hemodialysis patient ([facility]) ([facility]) HTN (hypertension) 12/01/2022 Hypertension IgA nephropathy [...] 10/09/2024 Performed by Bob Watson MD at [facility] Cardiac Cath/EP Lab CARDIAC CATHETERIZATION Bilateral 11/01/2024 Performed by Bob Watson MD at [facility] Cardiac Cath/EP Lab CARDIAC CATHETERIZATION N/A 11/01/2024 Performed by Bob Watson MD at [facility] Cardiac Cath/EP Lab COLONOSCOPY N/A 01/24/2025 Performed by Chadd Davis MD at [facility] ENDOSCOPY FISTULAGRAM (HISTORICAL) Left 09/15/2021 LEFT UPPER ARM HX AV FISTULA CREATION IR EMBOLIZATION 10/14/2024 IR EMBOLIZATION 10/14/2024 [facility] SPECIAL PROCEDURES IR FISTULAGRAM 08/07/2022 IR [...] Medication Sig Dispense Refill epoetin rowan-epbx (Retacrit) 74522 UNIT/ML injection Inject 0.79 mL (7,900 Units) [...] to follow Recommend to follow up at [facility] Outpatient wound care center after [...] Gill DO at 01/29/2025 4:37 PM EDT [facility] ([facility]) Inpatient Warfarin Consult HPI: Jun Snyder is a 59 y.o. male admitted on 01/19/2025 for Complication of tracheostomy ([facility]) ([facility]) [J95.00] Past Medical History: Diagnosis Date Acute renal failure (ARF) ([facility]) 10/19/2019 Anemia 12/30/2021 Calcification of abdominal aorta ([facility]) 10/08/202309/[address] abd Diverticulosis 10/08/2023 ESRD on hemodialysis ([facility]) ([facility]) 10/26/2019 Hemodialysis patient ([facility]) ([facility]) HTN (hypertension) 12/01/2022 Hypertension IgA nephropathy IgA nephropathy determined by biopsy of kidney 10/26/2019 Missed vaccination due to patient refusal 10/08/2023 Has a number of non-scientific based beliefs which interfere with his understanding and acceptance of the medical benefit of vaccination. Nonrheumatic aortic valve stenosis 10/08/2023 Paroxysmal A-fib ([facility]) ([facility]) 08/18/2023 Tobacco abuse 10/08/2023 Patient is [...] 01/29/25 0337 INR 2.4* Date INR Dose 5/5 2.4 0.5mg 01/28 2.2 0.5mg 01/27 1.9 [...] dose accordingly 3. Will facilitate f/u at [facility] upon discharge Fatuma Odonnell RPh [facility] is available daily [phone] via [employer]. If no response on Audiotoniq Chat then please page [phone]. [facility] Progress Note Mr. Jun Snyder is [...] heparin, 5-30 Units/kg/hr, Last Rate: 13 Units/kg/hr (01/28/25736) sodium chloride, 20 mL/hr, Last Rate: 20 [...] status and labs. Please message me through [employer] chat with any questions or concerns. Wellington Nicole MD 01/28/2025 2:08 PM [facility] [address] [place] [address], [address] [place] [id number] Office: [phone] Hospitalist Progress Note 01/28/2025 Subjective: Admit Date: 01/19/2025 PCP: Leilani Troncoso Room#: 1C-144/1C-144 A Brief Hospital Summary: Jun Snyder is a 59 y.o. male who who presented to [facility] 01/19 after inadvertent removal of his tracheostomy. He was transferred to [facility] ICU for surgical evaluation. On arrival [...] HD successfully. hemodynamically stable. Transferred out to [facility] 01/27 Interval History: No overnight [...] History: Diagnosis Date Acute renal failure (ARF) ([facility]) 10/19/2019 Anemia 12/30/2021 Calcification of abdominal aorta ([facility]) 10/08/202309/[address] abd Diverticulosis 10/08/2023 ESRD on hemodialysis ([facility]) ([facility]) 10/26/2019 Hemodialysis patient ([facility]) ([facility]) HTN (hypertension) 12/01/2022 Hypertension IgA nephropathy IgA nephropathy determined by biopsy of kidney 10/26/2019 Missed vaccination due to patient refusal 10/08/2023 Has a number of non-scientific based beliefs which interfere with his understanding and acceptance of the medical benefit of vaccination. Nonrheumatic aortic valve stenosis 10/08/2023 Paroxysmal A-fib ([facility]) ([facility]) 08/18/2023 Tobacco abuse 10/08/2023 LABS: CBC: [...] QT Interval 413 QTC Interval 515 P [place] 69 QRS [place] 93 T Wave [place] 87 NH Interval 148 Impression Sinus rhythm Left atrial [...] sodium chloride 0.9 % 100 mL IVPB (Add-Cushing), 3,000 mg, IntraVENous, q24h, Radha Yee MD, [...] q5 min PRN, Earlene Lozano APRN - PANTS PRESSER, 5 mg at 01/25/25 1846 metoprolol tartrate (Lopressor) tablet 25 mg, 25 mg, Per G Tube, BID, Earlene Lozano APRN - PANTS PRESSER, 25 mg at 01/28/25 0848 midodrine (Proamatine) [...] for sacral wound by ID PT OT SPANISH INTERPRETER follow, dysphagia diet Past Medical History: Diagnosis Date Acute renal failure (ARF) ([facility]) 10/19/2019 Anemia 12/30/2021 Calcification of abdominal aorta ([facility]) 10/08/202309/[address] abd Diverticulosis 10/08/2023 ESRD on hemodialysis ([facility]) ([facility]) 10/26/2019 Hemodialysis patient ([facility]) ([facility]) HTN (hypertension) 12/01/2022 Hypertension IgA nephropathy IgA nephropathy determined by biopsy of kidney 10/26/2019 Missed vaccination due to patient refusal 10/08/2023 Has a number of non-scientific based beliefs which interfere with his understanding and acceptance of the medical benefit of vaccination. Nonrheumatic aortic valve stenosis 10/08/2023 Paroxysmal A-fib ([facility]) ([facility]) 08/18/2023 Tobacco abuse 10/08/2023 Plan As [...] Division of Hospitalist Medicine Inpatient Medical Services/[place] [employer] Anticoagulation Management Service ([facility]IL[facility]JA) Inpatient Warfarin Consult HPI: Jun Snyder is a 59 y.o. male admitted on 01/19/2025 for Complication of tracheostomy ([facility]) ([facility]) [J95.00] Past Medical History: Diagnosis Date Acute renal failure (ARF) ([facility]) 10/19/2019 Anemia 12/30/2021 Calcification of abdominal aorta ([facility]) 10/08/202309/[address] abd Diverticulosis 10/08/2023 ESRD on hemodialysis ([facility]) ([facility]) 10/26/2019 Hemodialysis patient ([facility]) ([facility]) HTN (hypertension) 12/01/2022 Hypertension IgA nephropathy IgA nephropathy determined by biopsy of kidney 10/26/2019 Missed vaccination due to patient refusal 10/08/2023 Has a number of non-scientific based beliefs which interfere with his understanding and acceptance of the medical benefit of vaccination. Nonrheumatic aortic valve stenosis 10/08/2023 Paroxysmal A-fib ([facility]) ([facility]) 08/18/2023 Tobacco abuse 10/08/2023 Patient is [...] dose accordingly 3. Will facilitate f/u at [facility] upon discharge Vu Guido PharmD [facility] is available daily [phone] via [employer]. If no response on Audiotoniq Chat then please page [phone]. [facility] Anticoagulation Management Service (SAILAJA) Inpatient Warfarin Consult HPI: Jun Snyder is a 59 y.o. male admitted on 01/19/2025 for Complication of tracheostomy ([facility]) ([facility]) [J95.00] Past Medical History: Diagnosis Date Acute renal failure (ARF) ([facility]) 10/19/2019 Anemia 12/30/2021 Calcification of abdominal aorta ([facility]) 10/08/202309/[address] abd Diverticulosis 10/08/2023 ESRD on hemodialysis ([facility]) ([facility]) 10/26/2019 Hemodialysis patient ([facility]) ([facility]) HTN (hypertension) 12/01/2022 Hypertension IgA nephropathy IgA nephropathy determined by biopsy of kidney 10/26/2019 Missed vaccination due to patient refusal 10/08/2023 Has a number of non-scientific based beliefs which interfere with his understanding and acceptance of the medical benefit of vaccination. Nonrheumatic aortic valve stenosis 10/08/2023 Paroxysmal A-fib ([facility]) ([facility]) 08/18/2023 Tobacco abuse 10/08/2023 Patient is on warfarin for Afib, mechanical AVR and has a goal INR 2.0 - 3.0. Warfarin is currently managed by facility, has yet to be seen by [facility]. Pt's home dose of warfarin [...] dose accordingly 3. Will facilitate f/u at [facility] upon discharge Vu Guido PharmD [facility] is available daily [phone] via [employer]. If no response on Audiot[employer]q Chat then please page [phone]. [facility] Respiratory Care Department Progress Note [...] the care of this patient, [facility] Progress Note Mr. Jun Snyder is [...] last 7 days Lab Units 01/27/25 0006 01/26/25205201/26/2595101/26/2524701/25/25 0953 01/25/25 0251 WBC AUTO 10*3/uL 10.0 [...] status and labs. Please message me through [employer] chat with any questions or concerns. Wellington Nicole MD 01/27/2025 7:11 AM [facility] [address], [address] [place] [address] Office: [phone] ICU Progress Note Name: Jun Snyder : 1965(59 y.o.) Date: 01/27/25 Team: MICU Attending: DARRYN HIGGINS Subjective: Hospital Summary: Jun Snyder is a 59 y.o. male who who presented to [facility] 01/19 after inadvertent removal of his tracheostomy. He was transferred to [facility] ICU for surgical evaluation. On arrival [...] Infusions:heparin, 5-30 Units/kg/hr, Last Rate: 12 Units/kg/hr (01/27/25 0125) sodium chloride, 20 mL/hr, Last Rate: 20 mL/hr (01/25/252003) Objective: Last Vitals: BP MAP 123/71 (01/27/25321) 87 (01/27/25321) Arterial BP MAP (na) (01/26/25611) Temp 36.8 C (98.2 F) (01/27/25321) Pulse 85 (01/27/25321) Resp 20 (01/27/25321) SpO2 98 % (01/27/25321) Weight 52 kg (114 lb 10.2 oz) (01/27/25328) BMI Body mass index is 16.45 kg/m . I/O: 01/26 700 - 01/27 659 In: 861 [P.O.:200; I.V.:661] [...] Normal [] Scar/Lesion/Mass Inspection of teeth/lips/gums Dentition: [x][place] Teeth []Dentures Lips/Gums: [x]Intact []Lesion Present Mucosa: [x][place] []Moist []Dry Neck: External Appearance Overall Appearance: [...] last 24 hours- BMP: Recent Labs 01/25/25 0251 01/26/25 0248 01/27/25 0006 NA 138 136 139 K 3.9 5.1 3.9 CL 98 100 99 CO2 24 20* 23 BUN 15 19 9 CREATININE 2.54* 3.37* 2.27* CALCIUM 10.1 9.0 9.9 MG 2.1 2.0 1.9 PHOS 3.9 5.3* 3.4 LFTs:No results for input(s): "AST", "ALT", "PROT", "ALBUMIN", "BILITOT", "BILIRUBINU", "ALKPHOS", "LIPASE" in the last 72 hours. Glucose: Recent Labs 01/24/25 1217 01/25/25 0251 01/26/25 0248 01/27/25 0006 GLUCOSE 77 74 75 115* Procal: No results for input(s): "PROCAL" in the last 72 hours. CBC: Recent Labs 01/25/25 0251 01/25/25 0953 01/26/25 [...] displayed. ABGs: No results for input(s): "PHART", "PKM4OKQ", "PO2ART", "IHG9WFG", "SO2ART", "H6JRPGNJ" in the last 72 hours. Lactic Acid: [...] Plan: Principal Problem: Complication of tracheostomy (CMS/HCC) ([facility]) Active Problems: Severe malnutrition (CMS/HCC) ([facility]) BRBPR (bright red blood per rectum) [...] H/H and PT/INR q12 - Diet per SPANISH INTERPRETER recs Appreciate Recs: Pureed solids and Thin [...] apply Betadine and allow to dry, leave PUBLIC RELATIONS ANALYST daily and PRN - PVRs for [...] and warfarin Disposition: Stable for Transfer to [facility] Cosigned by Darryn Higgins MD [...] PT/OT - Remains stable for transfer to [facility]. Code Status: Full Code Disposition: ok for [facility] Time spent preparing to see the patient, obtaining/reviewing separately obtained history, completing an appropriate medical examination of the patient, ordering medications/tests/procedures, documenting clinical information on the EMR, and/or coordinating care is a subsequent visit: 35 minutes (Level II). Darryn Higgins MD Pulmonary and Critical Care Medicine Attending Pager #[phone] Images from the original note were not included. PHYSICAL THERAPY [facility] Name/MRN: Jair Snyder ([id number]) Date: 01/26/2025 Attempt Note Pt on iHD. Will re-attempt as able. Chantal Rossi PT [facility] Progress Note Mr. Jun Snyder is [...] last 7 days Lab Units 01/26/25 0248 01/25/2525001/24/25 0429 MAGNESIUM mg/dL 2.0 2.1 2.3 Results [...] concerns. Wellington Nicole MD 01/26/2025 1:55 PM [facility] [address] [place] [address], [address] [place] [address] Office: [phone] Speech-Language Pathology Pt is a hold at this time, as he is receiving dialysis. Will re-attempt next date as schedule permits. Treva Mccallum MS. CCC-SPANISH INTERPRETER ICU Transfer Checklist Hospital course: 59 y.o. male [facility] trach s/p removal, peg, HTN, afib, ESRD on TTS HD, aortic stenosis s/p mechanical valve who presented to [facility] 01/19 after inadvertent removal of his tracheostomy. Transferred to [facility] ICU for surgical evaluation. On arrival [...] convert to PO if able) None Anticipated [place] Medications (ICU initiated) or Dose Changes and Indication No Permanently Discontinued Home Medications and Reason for medication contraindication No Payne Catheter (please remove if able. Note: place DC order) No Central Line (please remove if able. Note: place DC order) No Transfer Discussed with: Dr. Russell [facility] If additional questions for ICU team within 24 hours of ICU transfer, page on air personality ICU resident for clarifications. [facility] Anticoagulation Management Service (SAILAJA) Inpatient Warfarin Consult HPI: Jun Snyder is a 59 y.o. male admitted on 01/19/2025 for Complication of tracheostomy ([facility]) ([facility]) [J95.00] Past Medical History: Diagnosis Date Acute renal failure (ARF) ([facility]) 10/19/2019 Anemia 12/30/2021 Calcification of abdominal aorta ([facility]) 10/08/202309/[address] abd Diverticulosis 10/08/2023 ESRD on hemodialysis ([facility]) ([facility]) 10/26/2019 Hemodialysis patient ([facility]) ([facility]) HTN (hypertension) 12/01/2022 Hypertension IgA nephropathy IgA nephropathy determined by biopsy of kidney 10/26/2019 Missed vaccination due to patient refusal 10/08/2023 Has a number of non-scientific based beliefs which interfere with his understanding and acceptance of the medical benefit of vaccination. Nonrheumatic aortic valve stenosis 10/08/2023 Paroxysmal A-fib ([facility]) ([facility]) 08/18/2023 Tobacco abuse 10/08/2023 Patient is [...] in this interval not displayed. Recent Labs 01/26/25 0248 INR 1.8* Date INR Dose 01/26 1.8 [...] dose accordingly 3. Will facilitate f/u at [facility] upon discharge Adalberto Deleon PharmD [facility] is available daily [phone] via [employer]. If no response on [employer] then please page [phone]. Images from the original note were not included. [facility] - Infectious Diseases Attending Progress [...] Lab Results Component Value Date/Time NA 136 01/26/2025247 K 5.1 01/26/2025247 CL 100 01/26/2025 024 CO2 20 (L) 01/26/2025247 BUN 19 01/26/2025247 CREATININE 3.37 (H) 01/26/2025247 CREATININE 9.99 (H) 10/27/2019 0545 GLUCOSE 75 01/26/20258 CALCIUM 9.0 01/26/2025 0248 PROT 7.6 01/22/2025 [...] from the original note were not included. [facility] Wound Care Progress Note Jun Snyder [...] diverticulosis, IgA nephropathy, severe that presented to [facility] ED from a facility due to trach dislodgement. Wound Care consulted for Pressure Injury sacrum and Ischemic ulcers to left toes" Patient resting in [place] with floor RN present at bedside. Wound vac changed at time of visit with patient tolerating well. Denies any needs. PAST MEDICAL HISTORY Past Medical History: Diagnosis Date Acute renal failure (ARF) ([facility]) 10/19/2019 Anemia 12/30/2021 Calcification of abdominal aorta ([facility]) 10/08/202309/[address] abd Diverticulosis 10/08/2023 ESRD on hemodialysis ([facility]) ([facility]) 10/26/2019 Hemodialysis patient ([facility]) ([facility]) HTN (hypertension) 12/01/2022 Hypertension IgA nephropathy IgA nephropathy determined by biopsy of kidney 10/26/2019 Missed vaccination due to patient refusal 10/08/2023 Has a number of non-scientific based beliefs which interfere with his understanding and acceptance of the medical benefit of vaccination. Nonrheumatic aortic valve stenosis 10/08/2023 Paroxysmal A-fib ([facility]) ([facility]) 08/18/2023 Tobacco abuse 10/08/2023 PAST SURGICAL HISTORY Past Surgical History: Procedure Laterality Date APPENDECTOMY CARDIAC CATHETERIZATION N/A 10/09/2024 Performed by Bob Watson MD at [facility] Cardiac Cath/EP Lab CARDIAC CATHETERIZATION Bilateral 11/01/2024 Performed by Bob Watson MD at [facility] Cardiac Cath/EP Lab CARDIAC CATHETERIZATION N/A 11/01/2024 Performed by Bob Watson MD at [facility] Cardiac Cath/EP Lab COLONOSCOPY N/A 01/24/2025 Performed by Chadd Davis MD at [facility] ENDOSCOPY FISTULAGRAM (HISTORICAL) Left 09/15/2021 LEFT UPPER ARM HX AV FISTULA CREATION IR EMBOLIZATION 10/14/2024 IR EMBOLIZATION 10/14/2024 [facility] SPECIAL PROCEDURES IR FISTULAGRAM 08/07/2022 IR [...] Medication Sig Dispense Refill epoetin rowan-epbx (Retacrit) 96947 UNIT/ML injection Inject 0.79 mL (7,900 Units) [...] apply Betadine and allow to dry, leave PUBLIC RELATIONS ANALYST daily and PRN -Recommend PVRs for circulation check Nutritional support Wound Care to follow Recommend to follow up at [facility] Outpatient wound care center after [...] 59 y.o. male who who presented to [facility] 01/19 after inadvertent removal of his tracheostomy. He was transferred to [facility] ICU for surgical evaluation. On arrival [...] (01/25/252003) Objective: Last Vitals: BP MAP 122/79 (01/26/250) 93 (01/26/25399) Arterial BP MAP (na) (01/26/25338) Temp 36.7 C (98 F) (01/26/25354) Pulse 83 (01/26/25399) Resp (!) 11 (01/26/25399) SpO2 100 % (01/26/25399) Weight 58.9 kg (129 lb 13.6 oz) (01/19/25656) BMI Body mass index is 18.63 kg/m . I/O: 01/25 07 - 01/26 659 In: 626 [I.V.:626] Out: [...] Normal [] Scar/Lesion/Mass Inspection of teeth/lips/gums Dentition: [x][place] Teeth []Dentures Lips/Gums: [x]Intact []Lesion Present Mucosa: [x][place] []Moist []Dry Neck: External Appearance Overall Appearance: [...] Recent Labs 01/24/25 0429 01/24/25 1217 01/25/25 0251 01/26/25 0248 NA 139 138 138 [...] Labs 01/23/25 0626 01/23/25 2317 01/24/25 0429 01/24/25 1217 01/25/25 0251 01/26/25 0248 GLUCOSE -- [...] displayed. ABGs: No results for input(s): "PHART", "YMY0SMN", "PO2ART", "LLT9TKS", "SO2ART", "E7BWZQEQ" in the last 72 hours. Lactic Acid: [...] and Plan: Principal Problem: Complication of tracheostomy (CMS/[facility]) ([facility]) Active Problems: Severe malnutrition (CMS/HCC) ([facility]) BRBPR (bright red blood per rectum) [...] peripheral blood smear pending - Diet per SPANISH INTERPRETER recs - continue q12 H/H and PT/INR [...] apply Betadine and allow to dry, leave PUBLIC RELATIONS ANALYST daily and PRN - PVRs for [...] on heparin and warfarin Disposition: Transfer to [facility] Cosigned by Darryn Higgins MD [...] hemoglobin stable today. Stable for transfer to [facility]. Code Status: Full Code Disposition: Transfer to [facility] Time spent preparing to see the patient, obtaining/reviewing separately obtained history, completing an appropriate medical examination of the patient, ordering medications/tests/procedures, documenting clinical information on the EMR, and/or coordinating care is a subsequent visit: 35 minutes (Level II). Darryn Higgins MD Pulmonary and Critical Care Medicine Attending Pager #[phone] Images from the original note were not included. [facility] - Infectious Diseases Attending Progress Note [...] Results Component Value Date/Time NA 138 01/25/2025 0251 K 3.9 01/25/2025 0251 CL 98 01/25/2025 0251 CO2 24 01/25/2025 0251 BUN 15 01/25/2025 025 CREATININE 2.54 (H) [...] stenosis s/p mechanical valve who presented to [facility] 01/19 after inadvertent removal of his tracheostomy. Transferred to [facility] ICU for surgical evaluation. On arrival [...] convert to PO if able) None Anticipated [place] Medications (ICU initiated) or Dose Changes and Indication No Permanently Discontinued Home Medications and Reason for medication contraindication No Payne Catheter (please remove if able. Note: place DC order) No Central Line (please remove if able. Note: place DC order) No Transfer Discussed with: Dr. Russell [facility] If additional questions for ICU team within 24 hours of ICU transfer, page on air personality ICU resident for clarifications. Images from the original note were not included. Speech-Language Pathology SPEECH LANGUAGE PATHOLOGY [facility] Modified Barium Swallow Study Patient Name: [...] swallow). Pt would benefit from skilled acute SPANISH INTERPRETER services to ensure diet tolerance, train swallow [...] History: Diagnosis Date Acute renal failure (ARF) ([facility]) 10/19/2019 Anemia 12/30/2021 Calcification of abdominal aorta ([facility]) 10/08/202309/[address] abd Diverticulosis 10/08/2023 ESRD on hemodialysis ([facility]) ([facility]) 10/26/2019 Hemodialysis patient ([facility]) ([facility]) HTN (hypertension) 12/01/2022 Hypertension IgA nephropathy IgA nephropathy determined by biopsy of kidney 10/26/2019 Missed vaccination due to patient refusal 10/08/2023 Has a number of non-scientific based beliefs which interfere with his understanding and acceptance of the medical benefit of vaccination. Nonrheumatic aortic valve stenosis 10/08/2023 Paroxysmal A-fib ([facility]) ([facility]) 08/18/2023 Tobacco abuse 10/08/2023 Past Surgical History: Past Surgical History: Procedure Laterality Date APPENDECTOMY CARDIAC CATHETERIZATION N/A 10/09/2024 Performed by Bob Watson MD at [facility] Cardiac Cath/EP Lab CARDIAC CATHETERIZATION Bilateral 11/01/2024 Performed by Bob Watson MD at [facility] Cardiac Cath/EP Lab CARDIAC CATHETERIZATION N/A 11/01/2024 Performed by Bob Watson MD at [facility] Cardiac Cath/EP Lab COLONOSCOPY N/A 01/24/2025 Performed by Chadd Davis MD at [facility] ENDOSCOPY FISTULAGRAM (HISTORICAL) Left 09/15/2021 LEFT UPPER ARM HX AV FISTULA CREATION IR EMBOLIZATION 10/14/2024 IR EMBOLIZATION 10/14/2024 [facility] SPECIAL PROCEDURES IR FISTULAGRAM 08/07/2022 IR FISTULAGRAM 08/07/2022 [facility] IR IMAGING TONSILLECTOMY (HISTORICAL) Admission Diagnosis: Patient Active Problem List Diagnosis Date Noted Severe malnutrition ([facility]) ([facility]) 01/19/2025 Complication of tracheostomy ([facility]) ([facility]) 01/19/2025 care home (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 01/12/2025 Acute respiratory failure with hypoxia ([facility]) [J96.01] 01/08/2025 Tracheostomy care ([facility]) [Z43.0] 01/08/2025 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[facility]) 01/08/2025 Sacral osteomyelitis ([facility]) ([facility]) 01/03/2025 Pneumonia of both lungs due to methicillin susceptible Staphylococcus aureus (MSSA) ([facility]) 01/01/2025 Leukocytosis 12/30/2024 Decubitus ulcer of sacral region, unstageable ([facility]) 12/30/2024 Peritonitis due to fungus ([facility]) 11/30/2024 History of abdominal surgery 11/30/2024 Leg DVT (deep venous thromboembolism), acute, left ([facility]) 11/30/2024 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, 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 of skin ([facility] [facility]) 11/30/2024 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 Pleural effusion 11/28/2024 Gastric ulceration 2024 Atrial flutter, unspecified type ([facility]) 10/03/2024 RSV (acute bronchiolitis due to respiratory syncytial virus) 10/03/2024 Diverticulosis 10/08/2023 Nonrheumatic aortic valve stenosis 10/08/2023 Calcification of abdominal aorta ([facility]) 10/08/2023 Missed vaccination due to patient refusal 10/08/2023 Tobacco abuse 10/08/2023 Alcohol use disorder in remission 10/08/2023 Paroxysmal A-fib ([facility]) ([facility]) 08/18/2023 HTN (hypertension) 12/01/2022 ESRD on hemodialysis ([facility]) ([facility]) 10/26/2019 IgA nephropathy determined by biopsy of kidney 10/26/2019 BRBPR (bright red blood per rectum) 01/19/2025 Aortic stenosis 10/03/2024 Upper GI bleed 10/03/2024 S/P AVR 10/03/2024 Acute hypoxic respiratory failure ([facility]) 10/03/2024 Acute encephalopathy 10/03/2024 Pneumoperitoneum 10/03/2024 Anemia 12/30/2021 Pain: Pt denies any current pain. Reason for current admission: Patient is a 59 yo male with a PMH of Trach and peg, HTN, paroxysmal a-fib, R occipital ICH, Tobacco abuse, ARF - dialysis (TTS; LUE AVF), diverticulosis, IgA nephropathy, severe that presented to [facility] ED from a facility due to trach dislodgement. Per patient, was trying to disconnect his vent to transfer to another room but accidentally pulled out his tracheostomy. This event happened approximately 45 minutes before ED arrival. ED attempted to place tracheostomy tube back but were unsuccessful. Decision was made to transfer patient to [facility] ICU for further airway management and [...] Expected End: 02/02/25 Resolved: 01/25/25 Therapy Time SPANISH INTERPRETER Individual Minutes Time In: 1145 Time Out: 1205 Minutes: 20 Christina Nunez MA, CCC/SPANISH INTERPRETER [facility] Anticoagulation Management Service ([facility]) Inpatient Warfarin Consult HPI: Jun Snyder is a 59 y.o. male admitted on 01/19/2025 for Complication of tracheostomy ([facility]) ([facility]) [J95.00] Past Medical History: Diagnosis Date Acute renal failure (ARF) ([facility]) 10/19/2019 Anemia 12/30/2021 Calcification of abdominal aorta ([facility]) 10/08/202309/[address] abd Diverticulosis 10/08/2023 ESRD on hemodialysis ([facility]) ([facility]) 10/26/2019 Hemodialysis patient ([facility]) ([facility]) HTN (hypertension) 12/01/2022 Hypertension IgA nephropathy IgA nephropathy determined by biopsy of kidney 10/26/2019 Missed vaccination due to patient refusal 10/08/2023 Has a number of non-scientific based beliefs which interfere with his understanding and acceptance of the medical benefit of vaccination. Nonrheumatic aortic valve stenosis 10/08/2023 Paroxysmal A-fib ([facility]) ([facility]) 08/18/2023 Tobacco abuse 10/08/2023 Patient is [...] dose accordingly 3. Will facilitate f/u at [facility] upon discharge Adalberto Deleon PharmD, PharmD [facility] is available daily [phone] via [employer]. If no response on [employer] Chat then please page [phone]. [facility] Progress Note Mr. Jun Snyder is [...] Results from last 7 days Lab Units 01/25/2525001/23/25 0430 01/22/25 0419 SODIUM mmol/L 138 < [...] from last 7 days Lab Units 01/25/25 02501/24/25 0429 01/23/25 0430 MAGNESIUM mg/dL 2.1 2.3 [...] status and labs. Please message me through [employer] chat with any questions or concerns. Wellington Nicole MD 01/25/2025 11:44 AM [facility] [address] [place] [address], [address] [place] [address] Office: [phone] Images from the original note were not [...] time - planning to eventually discharge to [facility] - will forward chart to Palliative [...] AV replacement Supratherapeutic INR - [facility] [employer] Program Management Analyst valve in 09/2024 - coumadin held due to bleeding and supratherapeutic levels Chronic respiratory failure s/p tracheostomy Tracheostomy dislodgement - has been saturating well without trach on RA so has not been replaced Palliative Care Encounter - Code Status: Full Code - Jun Snyder has been seen in consultation by [facility] during their admission to [facility]. They currently have no uncontrolled symptoms [...] Palliative Care IDT members involved: Palliative Care Ssrs Report Developer Discussed the plan of care with the [...] to have bile peritonitis" 11/28/24: transferred to [facility] He ended up developing sacral ulcer and osteomyelitis at [facility]. He then ended up dislodging his tracheostomy, and was brought to [facility] ED for further care. Palliative care [...] much better. Planning to eventually discharge to [facility]. Discussed trying to get palliative care [...] status: SNF Work history: unknown status: unknown Rastafari annette: Non-Anglican ROS: See palliative care ROS/ESAS below; All other systems were reviewed and are negative. Reva Symptom Assessment Score Reva Score Pain Score (if non-verbal, add .FLACC [...] 59 y.o. male who who presented to [facility] 01/19 after inadvertent removal of his tracheostomy. He was transferred to [facility] ICU for surgical evaluation. On arrival [...] (01/25/25428) Pulse 97 (01/25/25 0413) Resp 16 (01/25/25 041) SpO2 97 % (01/25/25412) Weight 58.9 kg (129 lb 13.6 oz) (01/19/25 0657) BMI Body mass index is 18.63 kg/m . I/O: 01/24 0700 - 01/25 0659 In: 748 [I.V.:673] Out: 1 Ventilator: ETCO2 [...] Normal [] Scar/Lesion/Mass Inspection of teeth/lips/gums Dentition: [x][place] Teeth []Dentures Lips/Gums: [x]Intact []Lesion Present Mucosa: [x][place] []Moist []Dry Neck: External Appearance Overall Appearance: [...] last 24 hours- BMP: Recent Labs 01/23/25 04301/24/25 04201/24/25121601/25/25 0251 NA 140 139 138 138 K [...] 19.2* ABGs: No results for input(s): "PHART", "MVL9VVH", "PO2ART", "CRP6OAA", "SO2ART", "Q7CGUYZD" in the last 72 hours. Lactic Acid: [...] peripheral blood smear pending - Diet per SPANISH INTERPRETER recs - continue q12 H/H and PT/INR [...] apply Betadine and allow to dry, leave PUBLIC RELATIONS ANALYST daily and PRN - PVRs for [...] Prophylaxis: SCDs warfarin held Disposition: Transfer to [facility] Cosigned by Darryn Higgins MD [...] and appropriate. If stable can transfer to [facility]. Code Status: Full Code Disposition: Transfer to [facility] Time spent preparing to see the patient, obtaining/reviewing separately obtained history, completing an appropriate medical examination of the patient, ordering medications/tests/procedures, documenting clinical information on the EMR, and/or coordinating care is a subsequent visit: 35 minutes (Level II). Darryn Higgins MD Pulmonary and Critical Care Medicine Attending Pager #[phone] Images from the original note were not included. [facility] - Infectious Diseases Advanced Practice Provider [...] 01/22 A baumannii screen: in process Previous ([facility]) 01/02- sacral wound cx- E faecalis (Amp-S), skin ila, Clostridium clostrioforme 01/01- blood cx- 2/2 NG 12/30- blood cx- 2/2 NGTD 12/30- sputum cx- MSSA, resp ila 12/25- blood cx- 2/2 negative 12/14- sputum cx- MSSA, resp ila 12/14- MRSA pcr- MSSA 12/11- sputum cx- MSSA, resp ila Previous ([facility]) 11/28- L pleural fluid- negative 11/16- [...] be of moderate complexity. Mikala MORAN PA-C [facility] Infectious Disease [facility] Progress Note Mr. Jun Snyder is [...] concerns. Wellington Nicole MD 01/24/2025 3:17 PM [facility] [address] [place] [address], [address] [place] [address] Office: [phone] Nutrition Assessment Type and Reason for Visit: [...] pt was receiving and tolerating while at [facility]. Noted SPANISH INTERPRETER is following- trach remains out and pt stable without it. SPANISH INTERPRETER most recently recommended MBSS completion- will follow and monitor SPANISH INTERPRETER recs and need for adjustment in EN [...] the ICU after he initially presented to [facility] ED on 01/19/25 due to inadvertent removal of his tracheostomy, pt was transferred to [facility] ICU for surgical evaluation, on arrival [...] and also left toes 1-4 arterial ulcers, SPANISH INTERPRETER remains following- yesterday noted recs to continue [...] able to be re-initiated as well as SPANISH INTERPRETER recs for possible diet advancement s/p MBSS. [...] bedscale, 10/31: 200#, 11/28: 161#, 01/18: 142#) [place] Body Weight (lbs) (Calculated): 166 lbs [place] Body Weight (Kg) (Calculated): 75 kg % [place] Body Weight (Calculated): 78.2 % BMI (kg/m2) [...] determine [address] Contact: available via [employer]P or *[phone] [facility] Anticoagulation Management Service ([facility]) Inpatient Warfarin Consult HPI: Jun Snyder is a 59 y.o. male admitted on 01/19/2025 for Complication of tracheostomy ([facility]) ([facility]) [J95.00] Past Medical History: Diagnosis Date Acute renal failure (ARF) ([facility]) 10/19/2019 Anemia 12/30/2021 Calcification of abdominal aorta ([facility]) 10/08/202309/[address] abd Diverticulosis 10/08/2023 ESRD on hemodialysis ([facility]) ([facility]) 10/26/2019 Hemodialysis patient ([facility]) ([facility]) HTN (hypertension) 12/01/2022 Hypertension IgA nephropathy IgA nephropathy determined by biopsy of kidney 10/26/2019 Missed vaccination due to patient refusal 10/08/2023 Has a number of non-scientific based beliefs which interfere with his understanding and acceptance of the medical benefit of vaccination. Nonrheumatic aortic valve stenosis 10/08/2023 Paroxysmal A-fib ([facility]) ([facility]) 08/18/2023 Tobacco abuse 10/08/2023 Patient is [...] dose accordingly 3. Will facilitate f/u at [facility] upon discharge Fatuma Odonnell RPh, PharmD [facility] is available daily [phone] via [employer]. If no response on [employer] then please page [phone]. ICU Progress Note Name: Jun Snyder : 1965(59 y.o.) Date: 01/24/25 Team: MICU Attending: Dr. Higgins Subjective: Hospital Summary: Mr Snyder is a 59 year old male who presented to [facility] 01/19 after inadvertent removal of his tracheostomy. He was transferred to [facility] ICU for surgical evaluation. On arrival [...] Normal [] Scar/Lesion/Mass Inspection of teeth/lips/gums Dentition: [][place] Teeth []Dentures Lips/Gums: []Intact []Lesion Present Mucosa: [x][place] []Moist [x]Dry Neck: External Appearance Overall Appearance: [...] within last 24 hours- BMP: Recent Labs 01/22/2541801/23/2542901/24/25 042 NA 132* 140 139 K 4.4 [...] 19.4* ABGs: No results for input(s): "PHART", "VJA0FZO", "PO2ART", "ADN8ABO", "SO2ART", "Q2AABXID" in the last 72 hours. Lactic Acid: No results for input(s): "LACTATE" in the last 72 hours. INR: Recent Labs 01/23/25 04301/23/25 1514 01/24/25 0429 INR 2.0* 1.6* 1.5* [...] post scope if stable can transfer to [facility] tomorrow Code Status: Full Code Disposition: Remain in ICU Time spent preparing to see the patient, obtaining/reviewing separately obtained history, completing an appropriate medical examination of the patient, ordering medications/tests/procedures, documenting clinical information on the EMR, and/or coordinating care is a subsequent visit: 35 minutes (Level II). Darryn Higgins MD Pulmonary and Critical Care Medicine Attending Pager #[phone] [facility] Progress Note Mr. Jun Snyder is [...] from last 7 days Lab Units 01/23/25 04301/22/259 SODIUM mmol/L 140 132* POTASSIUM mmol/L 3.4* [...] status and labs. Please message me through [employer] chat with any questions or concerns. Wellington Nicole MD 01/23/2025 5:03 PM [facility] [address], [address] [place] [id number] Office: [phone] Images from the original note were not included. Speech-Language Pathology SPEECH LANGUAGE PATHOLOGY [facility] Dysphagia Treatment Note Patient Name: Jun [...] Start: 01/19/25 Expected End: 02/02/25 Therapy Time SPANISH INTERPRETER Individual Minutes Time In: 1315 Time Out: 1330 Minutes: 15 FRANKLIN Singh Images from the original note were not included. [facility] - Infectious Diseases Advanced Practice Provider [...] 12/11- sputum cx- MSSA, resp ila Previous ([facility]) 11/28- L pleural fluid- negative 11/16- [...] be of moderate complexity. Mikala MORAN PA-C [facility] Infectious Disease Images from the original note [...] Active Problem List Diagnosis Anemia Paroxysmal A-fib ([facility]) ([facility]) HTN (hypertension) ESRD on hemodialysis ([facility]) ([facility]) IgA nephropathy determined by biopsy of kidney Diverticulosis Nonrheumatic aortic valve stenosis Calcification of abdominal aorta ([facility]) Missed vaccination due to patient refusal Tobacco abuse Alcohol use disorder in remission Atrial flutter, unspecified type (HCC) RSV (acute bronchiolitis due to respiratory syncytial virus) Aortic stenosis Upper GI bleed S/P AVR Acute hypoxic respiratory failure (HCC) Acute encephalopathy Pneumoperitoneum Gastric ulceration Severe malnutrition ([facility]) ([facility]) Pleural effusion Peritonitis due to fungus (HCC) History of abdominal surgery Leg DVT (deep venous thromboembolism), acute, left (HCC) 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, 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) Tracheostomy dependence (HCC) Leukocytosis Decubitus ulcer of sacral region, unstageable (HCC) Pneumonia of both lungs due to methicillin susceptible Staphylococcus aureus (MSSA) (HCC) Sacral osteomyelitis ([facility]) (HCC) Acute respiratory failure with hypoxia ([facility]) [J96.01] Tracheostomy care ([facility]) [Z43.0] 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[facility]) 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 I have reviewed and agree with the care plan as documented above by my FLOWER CHENILLER/DANIELLE. I personally discussed the review of systems [...] []SW/TCC []Other Total Care Time (combined between FLOWER CHENILLER/PA-C and myself) throughout the day today was >= 35 minutes (including chart/data review/analysis, care coordination, and zfpb-rx-[id number] encounter), and was spent discussing/counseling the patient/family regarding the care plan for this patient. I examined the patient independently. I reviewed relevant data myself and may have also done so in the context of team rounds. A full chart review was performed. Ivett Buckley MD Division of Trauma Department of Surgery [facility] Images from the original note were [...] sodium chloride 0.9 % 100 mL IVPB (Add-Cushing), 3,000 mg, IntraVENous, q12h, Steve Lassiter MD, [...] mEq, 20 mEq, IntraVENous, Once, Nils S Salh, DO prochlorperazine (Compazine) injection 5 mg, 5 [...] 59 year old male who presented to [facility] 01/19 after inadvertent removal of his tracheostomy. He was transferred to [facility] ICU for surgical evaluation. On arrival [...] BP MAP 127/71 (01/23/25 0600) 87 (01/23/25 06) Arterial BP MAP Temp 36.1 C (97 F) (01/23/25 0400) Pulse 89 (01/23/25 0600) Resp 14 (01/23/25599) SpO2 97 % (01/23/25599) Weight 58.9 kg (129 lb 13.6 oz) (01/19/25656) BMI Body mass index is 18.63 kg/m . I/O: 01/22 700 - 01/23 659 In: 1491 [I.V.:758] Out: [...] Normal [] Scar/Lesion/Mass Inspection of teeth/lips/gums Dentition: [][place] Teeth []Dentures Lips/Gums: []Intact []Lesion Present Mucosa: [][place] []Moist []Dry Neck: External Appearance Overall Appearance: [...] last 24 hours- BMP: Recent Labs 01/21/2524201/22/2541801/23/25 043 NA 135* 132* 140 K 4.3 4.4 3.4* CL 96* 94* 102 CO2 BUN 46* 53* 22 CREATININE 2.99* 4.18* 2.34* CALCIUM 9.9 9.8 9.4 MG 2.5 2.6 2.1 PHOS 5.3* 6.8* 4.5 LFTs: Recent Labs 01/22/25418 AST 51* ALT 44* PROT 7.6 ALBUMIN 2.2* BILITOT 0.9 ALKPHOS 274* Glucose: Recent Labs 01/21/25 02401/21/25 0246 01/21/25 0736 01/21/25 1115 01/21/25 1859 01/22/25 0005 01/22/25 04101/22/25 0554 01/22/25 1318 01/22/25 2357 01/23/25 0430 [...] 18.5* ABGs: No results for input(s): "PHART", "BVD9OAB", "PO2ART", "ZEG2GWF", "SO2ART", "A9LUYLZI" in the last 72 hours. Lactic Acid: [...] Plan: Principal Problem: Complication of tracheostomy (CMS/HCC) ([facility]) Active Problems: Severe malnutrition (CMS/HCC) ([facility]) GI Bleed, worsened by Warfarin Non-bleeding [...] setting of GI bleed Disposition: Transfer to [facility] Cosigned by Darryn Higgins MD [...] Pulmonary and Critical Care Medicine Attending Pager #[phone] [facility] Respiratory Care Department Progress Note As [...] Respiratory in the care of this patient, [facility] Progress Note Mr. Jun Snyder is [...] chat with any questions or concerns. Wellington Bonnie, MD 01/22/2025 3:30 PM [facility] [address], [address] [place] [address] Office: [phone] Images from the original note were not included. [facility] - Infectious Diseases Advanced Practice Provider [...] Behavior: Behavior normal. Labs: Recent Labs 01/20/25 0501/21/2524201/22/259 NA 135* 135* 132* K 4.8 4.3 [...] in this interval not displayed. Micro: Previous ([facility]) 01/02- sacral wound cx- E faecalis [...] wound debrided to bone on 01/02 at [facility] (Cx with E faecalis and Clostridium). Sacral [...] be of moderate complexity. Mikala MORAN PA-C [facility] Infectious Disease Speech-Language Pathology Spoke with the RN. Patient remains decanulated and doing well on Room Air. Patient is currently NPO for GI. Will defer dysphagia plan of care until patient is cleared to resume TF or a PO diet. Christina Limon MS, CCC/SPANISH INTERPRETER Images from the original note were not [...] sodium chloride 0.9 % 100 mL IVPB (Add-Cushing), 3,000 mg, IntraVENous, q12h, Steve Lassiter MD, [...] mg, 25 mg, Per G Tube, BID, tSeve Lassiter MD, 25 mg at 01/19/25 0916 [...] Intake/Output Summary (Last 24 hours) at 01/22/2025 0720 Last data filed at 01/22/2025 0537 Gross [...] Results from last 7 days Lab Units 01/22/2501/21/25 0243 01/20/25 0514 MAGNESIUM mg/dL 2.6 2.5 [...] (CMS/HCC) (HCC) Acute respiratory failure with hypoxia ([facility]) [J96.01] Tracheostomy care ([facility]) [Z43.0] 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HCC) care home (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 Complication of tracheostomy (CMS/HCC) ([facility]) I personally supervised the resident in [...] MD Division of Trauma Department of Surgery [facility] ICU Progress Note Name: Jun Snyder : 1965(59 y.o.) Date: 01/22/25 Team: MICU Attending: Dr. Higgins Subjective: Hospital Summary: Mr Snyder is a 59 year old male who presented to [facility] 01/19 after inadvertent removal of his tracheostomy. He was transferred to [facility] ICU for surgical evaluation. On arrival [...] Normal [] Scar/Lesion/Mass Inspection of teeth/lips/gums Dentition: [][place] Teeth []Dentures Lips/Gums: []Intact []Lesion Present Mucosa: [x][place] []Moist [x]Dry [place]ck: External Appearance Overall Appearance: [...] PHOS 6.1* 5.3* 6.8* LFTs: Recent Labs 01/22/259 AST 51* ALT 44* PROT 7.6 ALBUMIN [...] 0243 01/21/25 0908 01/21/25 1452 01/21/25 2348 01/22/259 WBC 10.1 9.2 -- -- 10.6 HGB 8.3* 8.0* 7.1* 7.7* 8.0* HCT 27.3* 25.3* 22.4* 24.5* 25.1* PLT 365 353 -- -- 330 MCV 88.9 87.5 -- -- 86.9 RDW 18.6* 18.6* -- -- 18.6* ABGs: No results for input(s): "PHART", "TZS7DJZ", "PO2ART", "IIW2ACW", "SO2ART", "U5WMKOOU" in the last 72 hours. Lactic Acid: [...] Pulmonary and Critical Care Medicine Attending Pager #[phone] [facility] Progress Note SUBJECTIVE: Jun Snyder [...] sodium chloride 0.9 % 100 mL IVPB (Add-Cushing), 3,000 mg, IntraVENous, q12h, Steve Lassiter MD, [...] Problem List Diagnosis Date Noted Severe malnutrition ([facility]) ([facility]) 01/19/2025 Complication of tracheostomy ([facility]) ([facility]) 01/19/2025 care home (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 01/12/2025 Acute respiratory failure with hypoxia ([facility]) [J96.01] 01/08/2025 Tracheostomy care ([facility]) [Z43.0] 01/08/2025 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[facility]) 01/08/2025 Sacral osteomyelitis ([facility]) ([facility]) 01/03/2025 Pneumonia of both lungs due to methicillin susceptible Staphylococcus aureus (MSSA) ([facility]) 01/01/2025 Leukocytosis 12/30/2024 Decubitus ulcer of sacral region, unstageable ([facility]) 12/30/2024 Peritonitis due to fungus ([facility]) 11/30/2024 History of abdominal surgery 11/30/2024 Leg DVT (deep venous thromboembolism), acute, left ([facility]) 11/30/2024 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, 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 of skin ([facility]) 11/30/2024 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 Pleural effusion 11/28/2024 Gastric ulceration 2024 Atrial flutter, unspecified type ([facility]) 10/03/2024 RSV (acute bronchiolitis due to respiratory syncytial virus) 10/03/2024 Diverticulosis 10/08/2023 Nonrheumatic aortic valve stenosis 10/08/2023 Calcification of abdominal aorta ([facility]) 10/08/2023 Missed vaccination due to patient refusal 10/08/2023 Tobacco abuse 10/08/2023 Alcohol use disorder in remission 10/08/2023 Paroxysmal A-fib ([facility]) ([facility]) 08/18/2023 HTN (hypertension) 12/01/2022 ESRD on hemodialysis ([facility]) ([facility]) 10/26/2019 IgA nephropathy determined by biopsy of kidney 10/26/2019 Aortic stenosis 10/03/2024 Upper GI bleed 10/03/2024 S/P AVR 10/03/2024 Acute hypoxic respiratory failure ([facility]) 10/03/2024 Acute encephalopathy 10/03/2024 Pneumoperitoneum 10/03/2024 Anemia 12/30/2021 ASSESSMENT/PLAN: ESRD. HD MWF schedule Anemia. PRBC if Hb less than 7 GI bleed. Gastroenterology following Cindy Patel MD 01/21/2025 4:54 PM Family Communication Number Called: [phone] Name of Designated Family Hand Candle Dipper: Omar son I spoke with the individual listed above Family Hand Candle Dipper Updated on the Following: - Updated Omar [...] sodium chloride 0.9 % 100 mL IVPB (Add-Cushing), 3,000 mg, IntraVENous, q12h, Steve Lassiter MD, [...] mg/mL) infusion, 8 mg/hr, IntraVENous, Continuous, Inés oCtto PA-C, Last Rate: 10 mL/hr at 01/21/25 [...] 10/12/24, Coumadin, last dose suspected 01/18/25 at [facility] Acute Right occipital ICH- 10/22/24 ESRD on [...] proceed with planned procedure. Parth VASQUEZ [facility] Progress Note SUBJECTIVE: Jun Snyder [...] sodium chloride 0.9 % 100 mL IVPB (Add-Cushing), 3,000 mg, IntraVENous, q12h, Steve Lassiter MD, [...] Problem List Diagnosis Date Noted Severe malnutrition ([facility]) ([facility]) 01/19/2025 Complication of tracheostomy ([facility]) ([facility]) 01/19/2025 care home (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 01/12/2025 Acute respiratory failure with hypoxia ([facility]) [J96.01] 01/08/2025 Tracheostomy care ([facility]) [Z43.0] 01/08/2025 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[facility]) 01/08/2025 Sacral osteomyelitis ([facility]) ([facility]) 01/03/2025 Pneumonia of both lungs due to methicillin susceptible Staphylococcus aureus (MSSA) ([facility]) 01/01/2025 Leukocytosis 12/30/2024 Decubitus ulcer of sacral region, unstageable ([facility]) 12/30/2024 Peritonitis due to fungus ([facility]) 11/30/2024 History of abdominal surgery 11/30/2024 Leg DVT (deep venous thromboembolism), acute, left ([facility]) 11/30/2024 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, 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 of skin ([facility]) 11/30/2024 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 Pleural effusion 11/28/2024 Gastric ulceration 2024 Atrial flutter, unspecified type ([facility]) 10/03/2024 RSV (acute bronchiolitis due to respiratory syncytial virus) 10/03/2024 Diverticulosis 10/08/2023 Nonrheumatic aortic valve stenosis 10/08/2023 Calcification of abdominal aorta ([facility]) 10/08/2023 Missed vaccination due to patient refusal 10/08/2023 Tobacco abuse 10/08/2023 Alcohol use disorder in remission 10/08/2023 Paroxysmal A-fib ([facility]) ([facility]) 08/18/2023 HTN (hypertension) 12/01/2022 ESRD on hemodialysis ([facility]) ([facility]) 10/26/2019 IgA nephropathy determined by biopsy of kidney 10/26/2019 Aortic stenosis 10/03/2024 Upper GI bleed 10/03/2024 S/P AVR 10/03/2024 Acute hypoxic respiratory failure ([facility]) 10/03/2024 Acute encephalopathy 10/03/2024 Pneumoperitoneum 10/03/2024 Anemia 12/30/2021 ASSESSMENT/PLAN: ESRD. HD MWF schedule. HD today. See orders Anemia. PRBC if Hb less than 7 Later in the day dialysis had to be discontinued a little early due to GI bleed and other events. Will reassess tomorrow Cindy Patel MD 01/20/2025 5:52 PM Images from the original note were not included. OCCUPATIONAL THERAPY [facility] Initial Evaluation Name/MRN: Jair Snyder ([id number]) Evaluation Date: 01/20/2025 Date of : 1965 Admission Date: 01/19/2025 2:13 AM Age: 59 y.o. Room[facility]Bed: [facility] A Discharge Recommendation: Detention Facility Other: DME TBD Assessment IMPRESSION: Pt [...] planned discharge. Admitting Diagnosis: Complication of tracheostomy ([facility]) ([facility]) Performance Deficits /Impairments: Decreased Functional Mobility, [...] History: Diagnosis Date Acute renal failure (ARF) ([facility]) 10/19/2019 Anemia 12/30/2021 Calcification of abdominal aorta ([facility]) 10/08/202309/[address] abd Diverticulosis 10/08/2023 ESRD on hemodialysis ([facility]) ([facility]) 10/26/2019 Hemodialysis patient ([facility]) ([facility]) HTN (hypertension) 12/01/2022 Hypertension IgA nephropathy IgA nephropathy determined by biopsy of kidney 10/26/2019 Missed vaccination due to patient refusal 10/08/2023 Has a number of non-scientific based beliefs which interfere with his understanding and acceptance of the medical benefit of vaccination. Nonrheumatic aortic valve stenosis 10/08/2023 Paroxysmal A-fib ([facility]) ([facility]) 08/18/2023 Tobacco abuse 10/08/2023 Past Surgical History: Past Surgical History: Procedure Laterality Date APPENDECTOMY CARDIAC CATHETERIZATION N/A 10/09/2024 Performed by Bob Watson MD at [facility] Cardiac Cath/EP Lab CARDIAC CATHETERIZATION Bilateral 11/01/2024 Performed by Bob Watson MD at [facility] Cardiac Cath/EP Lab CARDIAC CATHETERIZATION N/A 11/01/2024 Performed by Bob Watson MD at [facility] Cardiac Cath/EP Lab FISTULAGRAM (HISTORICAL) Left 09/15/2021 LEFT UPPER ARM HX AV FISTULA CREATION IR EMBOLIZATION 10/14/2024 IR EMBOLIZATION 10/14/2024 [facility] SPECIAL PROCEDURES IR FISTULAGRAM 08/07/2022 IR FISTULAGRAM 08/07/2022 [facility] IR IMAGING TONSILLECTOMY (HISTORICAL) Admission Diagnosis: Patient Active Problem List Diagnosis Date Noted Severe malnutrition ([facility]) ([facility]) 01/19/2025 Complication of tracheostomy ([facility]) ([facility]) 01/19/2025 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 Acute respiratory failure with hypoxia ([facility]) [J96.01] 01/08/2025 Tracheostomy care ([facility]) [Z43.0] 01/08/2025 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[facility]) 01/08/2025 Sacral osteomyelitis ([facility]) ([facility]) 01/03/2025 Pneumonia of both lungs due to methicillin susceptible Staphylococcus aureus (MSSA) ([facility]) 01/01/2025 Leukocytosis 12/30/2024 Decubitus ulcer of sacral region, unstageable ([facility]) 12/30/2024 Peritonitis due to fungus ([facility]) 11/30/2024 History of abdominal surgery 11/30/2024 Leg DVT (deep venous thromboembolism), acute, left ([facility]) 11/30/2024 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, 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 of skin ([facility]) 11/30/2024 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 Pleural effusion 11/28/2024 Gastric ulceration 2024 Atrial flutter, unspecified type ([facility]) 10/03/2024 RSV (acute bronchiolitis due to respiratory syncytial virus) 10/03/2024 Diverticulosis 10/08/2023 Nonrheumatic aortic valve stenosis 10/08/2023 Calcification of abdominal aorta ([facility]) 10/08/2023 Missed vaccination due to patient refusal 10/08/2023 Tobacco abuse 10/08/2023 Alcohol use disorder in remission 10/08/2023 Paroxysmal A-fib ([facility]) ([facility]) 08/18/2023 HTN (hypertension) 12/01/2022 ESRD on hemodialysis ([facility]) ([facility]) 10/26/2019 IgA nephropathy determined by biopsy of kidney 10/26/2019 Aortic stenosis 10/03/2024 Upper GI bleed 10/03/2024 S/P AVR 10/03/2024 Acute hypoxic respiratory failure ([facility]) 10/03/2024 Acute encephalopathy 10/03/2024 Pneumoperitoneum 10/03/2024 [...] events, decreased short term memory, and decreased joint terminal attack controller memory - Safety judgement: decreased awareness of [...] Poor historian. Per pt he came from [facility]. Pt unable to recall living situation prior to [facility], states "I've been in and out of [...] of Care supervision is transferred to a [facility] Therapy Services Occupational Therapist. Goals [...] diverticulosis, IgA nephropathy, severe that presented to [facility] ED from a facility due to trach dislodgement. Per patient, was trying to disconnect his vent to transfer to another room but accidentally pulled out his tracheostomy. This event happened approximately 45 minutes before ED arrival. ED attempted to place tracheostomy tube back but were unsuccessful. Decision was made to transfer patient to [facility] ICU for further airway management and determine if replacement tracheostomy is needed. Was observed at [facility] ICU initially and transferred to [facility] on 01/20. Noted removal of [...] History: Diagnosis Date Acute renal failure (ARF) ([facility]) 10/19/2019 Anemia 12/30/2021 Calcification of abdominal aorta ([facility]) 10/08/202309/[address] abd Diverticulosis 10/08/2023 ESRD on hemodialysis ([facility]) ([facility]) 10/26/2019 Hemodialysis patient ([facility]) ([facility]) HTN (hypertension) 12/01/2022 Hypertension IgA nephropathy IgA nephropathy determined by biopsy of kidney 10/26/2019 Missed vaccination due to patient refusal 10/08/2023 Has a number of non-scientific based beliefs which interfere with his understanding and acceptance of the medical benefit of vaccination. Nonrheumatic aortic valve stenosis 10/08/2023 Paroxysmal A-fib ([facility]) ([facility]) 08/18/2023 Tobacco abuse 10/08/2023 LABS: CBC: [...] and limit nighttime disturbances - DVT prophylaxis: [facility] 02-01-2025 Note [facility] 02-01-2025 Hospital course Narrative Discharge Summary Jun nSyder : 1965 ADMIT DATE: 01/19/2025 DISCHARGE DATE: 02/01/2025 PRIMARY CARE PHYSICIAN: Leilani Troncoso VISIT STATUS: Admission CODE STATUS: Full Code DISCHARGE DIAGNOSES: Principal Problem: Complication of tracheostomy (CMS/HCC) (HCC) Active Problems: Severe malnutrition (CMS/HCC) ([facility]) BRBPR (bright red blood per rectum) HOSPITAL COURSE: Jun Snyder is a 59 y.o. male who who presented to [facility] 01/19 after inadvertent removal of his tracheostomy. He was transferred to [facility] ICU for surgical evaluation. On arrival [...] HD successfully. hemodynamically stable. Transferred out to [facility] 01/27 ID following for sacral osteomyelitis, s/p wound debridement to bone on 01/02, cultures grew E faecalis and Clostridium, continue with renally dosed ampicillin sulbactam for 6 weeks course through 02/13/2025, needs tunneled line, status post IR CVC tunneled line on 01/29 Nephrology following, on dialysis SPANISH INTERPRETER following PT/OT recommends SNF Patient will be [...] History: Diagnosis Date Acute renal failure (ARF) ([facility]) 10/19/2019 Anemia 12/30/2021 Calcification of abdominal aorta ([facility]) 10/08/202309/[address] abd Diverticulosis 10/08/2023 ESRD on hemodialysis ([facility]) ([facility]) 10/26/2019 Hemodialysis patient ([facility]) ([facility]) HTN (hypertension) 12/01/2022 Hypertension IgA nephropathy IgA nephropathy determined by biopsy of kidney 10/26/2019 Missed vaccination due to patient refusal 10/08/2023 Has a number of non-scientific based beliefs which interfere with his understanding and acceptance of the medical benefit of vaccination. Nonrheumatic aortic valve stenosis 10/08/2023 Paroxysmal A-fib ([facility]) ([facility]) 08/18/2023 Tobacco abuse 10/08/2023 Adult diet [...] this interval not displayed. BMP: Recent Labs 01/30/254601/31/25 0010 02/01/25 0114 NA 135* 138 136 K 3.7 4.3 3.7 CL 99 99 99 CO2 23 27 26 BUN 10 15 7* CREATININE 2.56* 3.64* 2.39* GLUCOSE 88 87 87 CALCIUM 9.6 10.0 9.7 ANIONGAP 13 12 11 LIVER PROFILE: Recent Labs 01/31/250 02/01/25 0114 AST 31 32 ALT 11 10 BILITOT 0.8 0.9 ALKPHOS 218* 226* PROT 7.3 7.4 PT/INR: Recent Labs 01/30/254601/31/25 0010 02/01/25 0114 PROTIME 24.9* 22.4* 20.3* [...] 20 mL/hr, Last Rate: 20 mL/hr (01/30/25 2968) Assessment Data: (CAT1) Reviewed 2 notes from [...] by ID -S/p tunneled central line placement -SPANISH INTERPRETER follow, dysphagia diet -PT OT DC recommend SNF SIGNIFICANT DIAGNOSTIC STUDIES: IR cvc tunneled central line placement [[id number]] Collected: 01/30/251436 Order Status: Completed Updated: 01/30/251438 Narrative: [facility] 1965 [id number] Exam Date/Time: 01/30/2025 14:00 Procedure: IR CVC [...] FL modified barium with video and speech [[id number]] Collected: 01/25/25 1328 Order Status: Completed Updated: [...] 3:12 PM EDT XR chest 1 view [[id number]] Collected: 01/24/25 0158 Order Status: Completed Updated: [...] pelvis angiogram w and/or wo IV contrast [[id number]] Collected: 01/20/25 1849 Order Status: Completed Updated: 01/20/25 1903 Narrative: Patient Name: JUN SNYDER : 1965 [...] 7:02 PM EDT XR chest 1 view [[id number]] Collected: 01/19/25614 Order Status: Completed Updated: 01/19/25616 Narrative: Patient Name: JUN SNYDER : 1965 [id number] Exam Date/Time: 01/19/2025 05:58 Procedure: XR CHEST [...] 6:16 AM EDT XR chest 1 view [[id number]] Collected: 01/18/25 1242 Order Status: Completed Updated: 01/19/25 0213 Narrative: XR CHEST 1 VW: Findings: Single [...] days. CONTINUE taking these medications epoetin rowan-epbx 24429 UNIT/ML injection Commonly known as: Retacrit Inject [...] Complexity: follow up within 7-14 calendar days (49322) [] Severe Complexity: follow up within 7 calendar days (20790) FOLLOW UP TESTING, PENDING RESULTS OR REFERRALS AT TRANSITIONAL CARE VISIT: [] Yes [] No PENDING STUDIES: DISPOSITION: Skilled Facility FACILITY/HOME CARE AGENCY NAME: Follow up with [facility] [address] [place] [id number] Gurdeep Cruz MD [address] [place] [address] [address] [facility] [id number] Schedule an appointment as soon as possible [...] 02/01/2025, 10:29 AM documented in this encounter [facility] 01-30-2025 Note Patient receiving ot her care, will attempt smoking cessation counseling at a later date. [facility] 01-30-2025 Note Problem: Pain - Adul t Goal: Verbalizes/displays adequate comfort level or baseline comfort level Outcome: Progressing Problem: Safety - Adult Goal: Free from fall injury Outcome: Progressing [facility] 01-29-2025 Telephone encount er Note Chart reviewed, patient appears to be sensitive to warfarin at this time and I wouldn't be able to guarantee INR remains less than 3, so opted to hold dose today. I canceled order. [facility] [employer] Work Phone: 01-29-2025 Miscellaneous Notes Formattin g of this note might be different from the original. Chart reviewed, patient appears to be sensitive to warfarin at this time and I wouldn't be able to guarantee INR remains less than 3, so opted to hold dose today. I canceled order. SWEETIE Singh with [facility] called to inform [facility] patient is scheduled to have [...] as needed tomorrow. documented in this encounter [facility] 01-29-2025 Telephone encount er Note SWEETIE Singh with [facility] called to inform [facility] patient is scheduled to have a tunnel cath line tomorrow and Dr. Lira is inquiring if patient should hold his warfarin 0.[address]. [address] Lira does not want INR to go above to 3.0 tomorrow. Staffed with Natali Richter, PERI, CACP, she will cancel patient's warfarin dose tomorrow and SAILAJA will make adjustments as needed tomorrow. [facility] 01-26-2025 Hospital Discharg e instructions Kristine Donato [...] 10/09/2024 Performed by Bob Watson MD at [facility] Cardiac Cath/EP Lab CARDIAC CATHETERIZATION Bilateral 11/01/2024 Performed by Bob Watson MD at [facility] Cardiac Cath/EP Lab CARDIAC CATHETERIZATION N/A 11/01/2024 Performed by Bob Watson MD at [facility] Cardiac Cath/EP Lab COLONOSCOPY N/A 01/24/2025 Performed by Chadd Davis MD at [facility] ENDOSCOPY FISTULAGRAM (HISTORICAL) Left 09/15/2021 LEFT UPPER ARM HX AV FISTULA CREATION IR EMBOLIZATION 10/14/2024 IR EMBOLIZATION 10/14/2024 [facility] SPECIAL PROCEDURES IR FISTULAGRAM 08/07/2022 IR [...] Leukocytosis Decubitus ulcer of sacral region, unstageable ([facility]) Pneumonia of both lungs due to methicillin susceptible Staphylococcus aureus (MSSA) (HCC) Sacral osteomyelitis (CMS/HCC) (HCC) Acute respiratory failure with hypoxia ([facility]) [J96.01] Tracheostomy care ([facility]) [Z43.0] 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[facility]) 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 Anemia Aortic stenosis Upper GI bleed S/P AVR Acute hypoxic respiratory failure ([facility]) Acute encephalopathy Pneumoperitoneum BRBPR (bright red [...] Total assistance Toileting Total assistance 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 Independent Med Delivery yes Wound Care Documentation and Therapy: Wound/Incision 11/13/24 Pressure Injury Sacrum (Active) Wound Image 01/19/25 0500 Site Assessment [place];Red 01/26/25 1200 Mahnaz-Wound Assessment Intact 01/26/25 0355 [...] Date: 01/21/25 Discharging to Facility/ Agency Name: [facility] Address: [address] [place] [address] Fax: Dialysis Facility (if applicable) Name: Address: Dialysis Schedule: [facility] Phone: Fax: Laborer Syrup Machine/Ssrs Report Developer signature: ICIAN SECTION Name: Jun Snyder Prognosis: fair Condition at Discharge: stable Rehab Potential (if transferring to Rehab): fair Recommended Labs or Other Treatments After Discharge: cbc,cmp, PT/INR for warfarin, C/W Ampicillin-Sulbactam till 02/13, F/U with ID The individual is being admitted to a nursing facility directly from an [facility] or a unit of a [facility] that is not operated by or licensed by [facility] under section 5119.14 or 5160-3-15.1 5 The individual requires the level of services provided by a nursing facility for the condition for which he or she was treated in the hospital and, Physician Certification: I certify the above information and transfer of Jun Snyder is necessary for the continuing treatment of the diagnosis listed and that he requires correction facility for less than 30 days. Update Admission H&P: No change in H&P PHYSICIAN SIGNATURE: documented in this encounter [facility] 01-24-2025 Procedure note Images from the [...] Safety: The patient was placed on a phototypesetting equipment monitor and vital signs, pulse oximetry, and [...] of the procedure. documented in this encounter [facility] 01-23-2025 Consult note Associated Order (s): INPATIENT CONSULT TO WOUND CARE PROVIDERS Images from the original note were not included. [facility] Re-CONSULT Note Jun Snyder [...] diverticulosis, IgA nephropathy, severe that presented to [facility] ED from a facility due to [...] History: Diagnosis Date Acute renal failure (ARF) ([facility]) 10/19/2019 Anemia 12/30/2021 Calcification of abdominal aorta ([facility]) 10/08/202309/[address] abd Diverticulosis 10/08/2023 ESRD on hemodialysis ([facility] ([facility]) 10/26/2019 Hemodialysis patient ([facility]) ([facility]) HTN (hypertension) 12/01/2022 Hypertension IgA nephropathy IgA nephropathy determined by biopsy of kidney 10/26/2019 Missed vaccination due to patient refusal 10/08/2023 Has a number of non-scientific based beliefs which interfere with his understanding and acceptance of the medical benefit of vaccination. Nonrheumatic aortic valve stenosis 10/08/2023 Paroxysmal A-fib ([facility]) ([facility]) 08/18/2023 Tobacco abuse 10/08/2023 PAST SURGICAL HISTORY Past Surgical History: Procedure Laterality Date APPENDECTOMY CARDIAC CATHETERIZATION N/A 10/09/2024 Performed by Bob Watson MD at [facility] Cardiac Cath/EP Lab CARDIAC CATHETERIZATION Bilateral 11/01/2024 Performed by Bob Watson MD at [facility] Cardiac Cath/EP Lab CARDIAC CATHETERIZATION N/A 11/01/2024 Performed by Bob Watson MD at [facility] Cardiac Cath/EP Lab FISTULAGRAM (HISTORICAL) Left 09/15/2021 LEFT UPPER ARM HX AV FISTULA CREATION IR EMBOLIZATION 10/14/2024 IR EMBOLIZATION 10/14/2024 [facility] SPECIAL PROCEDURES IR FISTULAGRAM 08/07/2022 IR FISTULAGRAM 08/07/2022 [facility] IR IMAGING TONSILLECTOMY (HISTORICAL) FAMILY HISTORY [...] Medication Sig Dispense Refill epoetin rowan-epbx (Retacrit) 12710 UNIT/ML injection Inject 0.79 mL (7,900 Units) [...] apply Betadine and allow to dry, leave PUBLIC RELATIONS ANALYST daily and PRN -Recommend PVRs for circulation check Nutritional support Wound Care to follow Recommend to follow up at [facility] Outpatient wound care center after [...] Gill DO at 01/29/2025 4:37 PM EDT [facility] Anticoagulation Management Service (SAILAJA) Inpatient Warfarin Consult HPI: Jun Snyder is a 59 y.o. male admitted on 01/19/2025 for Complication of tracheostomy (CMS/HCC) (HCC) [J95.00] Past Medical History: Diagnosis Date Acute renal failure (ARF) ([facility]) 10/19/2019 Anemia 12/30/2021 Calcification of abdominal aorta ([facility]) 10/08/202309/[address] abd Diverticulosis 10/08/2023 ESRD on hemodialysis ([facility] ([facility]) 10/26/2019 Hemodialysis patient ([facility]) ([facility]) HTN (hypertension) 12/01/2022 Hypertension IgA nephropathy IgA nephropathy determined by biopsy of kidney 10/26/2019 Missed vaccination due to patient refusal 10/08/2023 Has a number of non-scientific based beliefs which interfere with his understanding and acceptance of the medical benefit of vaccination. Nonrheumatic aortic valve stenosis 10/08/2023 Paroxysmal A-fib ([facility]) ([facility]) 08/18/2023 Tobacco abuse 10/08/2023 Patient is [...] and plan for colonoscopy tomorrow, please notify [facility] when able to resume anticoagulation. 2. Monitor for s/s of bleeding and drug interactions. Will adjust dose accordingly 3. Will facilitate f/u at [facility] upon discharge Fatuma Odonnell RPh, PharmD [facility] is available daily [phone] via [employer]. If no response on [employer] then please page [phone]. Images from the original note were not [...] AV replacement Supratherapeutic INR - [facility] Program Management Analyst valve in 09/2024 - coumadin held due [...] Palliative Care IDT members involved: Palliative Care Ssrs Report Developer Discussed the plan of care with the [...] to have bile peritonitis" 11/28/24: transferred to [facility] He ended up developing sacral ulcer and osteomyelitis at [facility]. He then ended up dislodging his tracheostomy, and was brought to [facility] ED for further care. Palliative care [...] status: SNF Work history: unknown status: unknown Rastafari annette: Non-Anglican ROS: See palliative care ROS/ESAS below; All other systems were reviewed and are negative. Reva Symptom Assessment Score Reva Score Pain Score (if non-verbal, add .FLACC [...] History: Diagnosis Date Acute renal failure (ARF) ([facility]) 10/19/2019 Anemia 12/30/2021 Calcification of abdominal aorta ([facility]) 10/08/202309/[address] abd Diverticulosis 10/08/2023 ESRD on hemodialysis ([facility]) ([facility]) 10/26/2019 Hemodialysis patient ([facility]) ([facility]) HTN (hypertension) 12/01/2022 Hypertension IgA nephropathy IgA nephropathy determined by biopsy of kidney 10/26/2019 Missed vaccination due to patient refusal 10/08/2023 Has a number of non-scientific based beliefs which interfere with his understanding and acceptance of the medical benefit of vaccination. Nonrheumatic aortic valve stenosis 10/08/2023 Paroxysmal A-fib ([facility]) ([facility]) 08/18/2023 Tobacco abuse 10/08/2023 Past Surgical History: Procedure Laterality Date APPENDECTOMY CARDIAC CATHETERIZATION N/A 10/09/2024 Performed by Bob Watson MD at [facility] Cardiac Cath/EP Lab CARDIAC CATHETERIZATION Bilateral 11/01/2024 Performed by Bob Watson MD at [facility] Cardiac Cath/EP Lab CARDIAC CATHETERIZATION N/A 11/01/2024 Performed by Bob Watson MD at [facility] Cardiac Cath/EP Lab FISTULAGRAM (HISTORICAL) Left 09/15/2021 LEFT UPPER ARM HX AV FISTULA CREATION IR EMBOLIZATION 10/14/2024 IR EMBOLIZATION 10/14/2024 [facility] SPECIAL PROCEDURES IR FISTULAGRAM 08/07/2022 IR [...] Transition Note Initiated: yes Tex Cotto MD [facility] Anticoagulation Management Service (SAILAJA) Inpatient Warfarin Consult HPI: Jun Snyder is a 59 y.o. male admitted on 01/19/2025 for Complication of tracheostomy ([facility]) ([facility]) [J95.00] Past Medical History: Diagnosis Date Acute renal failure (ARF) ([facility]) 10/19/2019 Anemia 12/30/2021 Calcification of abdominal aorta ([facility]) 10/08/202309/[address] abd Diverticulosis 10/08/2023 ESRD on hemodialysis ([facility]) ([facility]) 10/26/2019 Hemodialysis patient ([facility]) ([facility]) HTN (hypertension) 12/01/2022 Hypertension IgA nephropathy IgA nephropathy determined by biopsy of kidney 10/26/2019 Missed vaccination due to patient refusal 10/08/2023 Has a number of non-scientific based beliefs which interfere with his understanding and acceptance of the medical benefit of vaccination. Nonrheumatic aortic valve stenosis 10/08/2023 Paroxysmal A-fib ([facility]) ([facility]) 08/18/2023 Tobacco abuse 10/08/2023 Patient is on warfarin for Afib, mechanical AVR and has a goal INR 2.0 - 3.0. Warfarin is currently managed by facility, has yet to be seen by [facility]. Pt's home dose of warfarin [...] possible GIB and elevated INR, please notify [facility] when able to resume anticoagulation. 2. Monitor for s/s of bleeding and drug interactions. Will adjust dose accordingly 3. Will facilitate f/u at [facility] upon discharge Fatuma Odonnell RPh, PharmD SAILAJA is available daily [phone] via [employer]. If no response on [employer] Chat then please page [phone]. [facility] Anticoagulation Management Service (SAILAJA) Inpatient Warfarin Consult HPI: Jun Snyder is a 59 y.o. male admitted on 01/19/2025 for Complication of tracheostomy ([facility]) ([facility]) [J95.00] Past Medical History: Diagnosis Date Acute renal failure (ARF) ([facility]) 10/19/2019 Anemia 12/30/2021 Calcification of abdominal aorta ([facility]) 10/08/202309/[address] abd Diverticulosis 10/08/2023 ESRD on hemodialysis ([facility]) ([facility]) 10/26/2019 Hemodialysis patient ([facility]) ([facility]) HTN (hypertension) 12/01/2022 Hypertension IgA nephropathy IgA nephropathy determined by biopsy of kidney 10/26/2019 Missed vaccination due to patient refusal 10/08/2023 Has a number of non-scientific based beliefs which interfere with his understanding and acceptance of the medical benefit of vaccination. Nonrheumatic aortic valve stenosis 10/08/2023 Paroxysmal A-fib ([facility]) ([facility]) 08/18/2023 Tobacco abuse 10/08/2023 Patient is on warfarin for Afib, mechanical AVR and has a goal INR 2.0 - 3.0. Warfarin is currently managed by facility, has yet to be seen by [facility]. Pt's home dose of warfarin [...] admission. Holding warfarin for GIB, please notify [facility] when able to resume anticoagulation. 2. Monitor for s/s of bleeding and drug interactions. Will adjust dose accordingly 3. Will facilitate f/u at [facility] upon discharge Darryn Wagner RPh, PharmD SAILAJA is available daily [phone] via [employer]. If no response on Epic Chat then please page [phone]. Associated Order(s): IP CONSULT TO GENERAL SURGERY [...] History: Diagnosis Date Acute renal failure (ARF) ([facility]) 10/19/2019 Anemia 12/30/2021 Calcification of abdominal aorta ([facility]) 10/08/202309/[address] abd Diverticulosis 10/08/2023 ESRD on hemodialysis ([facility]) ([facility]) 10/26/2019 Hemodialysis patient ([facility]) ([facility]) HTN (hypertension) 12/01/2022 Hypertension IgA nephropathy [...] 10/09/2024 Performed by Bob Watson MD at [facility] Cardiac Cath/EP Lab CARDIAC CATHETERIZATION Bilateral 11/01/2024 Performed by Bob Watson MD at [facility] Cardiac Cath/EP Lab CARDIAC CATHETERIZATION N/A 11/01/2024 Performed by Bob Watson MD at [facility] Cardiac Cath/EP Lab FISTULAGRAM (HISTORICAL) Left 09/15/2021 LEFT UPPER ARM HX AV FISTULA CREATION IR EMBOLIZATION 10/14/2024 IR EMBOLIZATION 10/14/2024 [facility] SPECIAL PROCEDURES IR FISTULAGRAM 08/07/2022 IR FISTULAGRAM 08/07/2022 SB IR IMAGING TONSILLECTOMY (HISTORICAL) Medications Prior to Admission: Current Facility-Administered Medications Medication Dose Route Frequency Provider Last Rate Last Admin acetaminophen (Tylenol) tablet 1,000 mg 1,000 mg Oral q8h PRN Steve Lassiter MD 1,000 mg at 01/19/25 1540 ampicillin-sulbactam (Unasyn) 3,000 mg in sodium chloride 0.9 % 100 mL IVPB (Add-Cushing) 3,000 mg IntraVENous q12h Steve Lassiter MD [...] Patient Unable To Answer (12/01/2024) Received from [facility] Medical Overall Financial Resource Strain (CARDIA) Difficulty of Paying Living Expenses: Patient unable to answer Food Insecurity: Patient Unable To Answer (12/01/2024) Received from [facility] Medical Hunger Vital Sign Worried About Running Out of Food in the Last Year: Patient unable to answer Ran Out of Food in the Last Year: Patient unable to answer Transportation Needs: No Transportation Needs (01/18/2025) Received from [facility] Medical SDOH Transportation Source Has lack of transportation kept you from medical appointments or from getting medications?: No Has lack of transportation kept you from meetings, work, or from getting things needed for daily living?: No Stress: No Stress Concern Present (01/18/2025) Received from [facility] - Occupational Stress Questionnaire Feeling of Stress : Not at all Social Connections: Patient Unable To Answer (12/01/2024) Received from [facility] Medical Social Connection and Isolation Panel [NHANES] Frequency of Communication with Friends and Family: Patient unable to answer Frequency of Social Gatherings with Friends and Family: Patient unable to answer Attends Rastafari Services: Patient unable to answer Active Member of Clubs or Organizations: Patient unable to answer Attends Club or Organization Meetings: Patient unable to answer Marital Status: Patient unable to answer Intimate Partner Violence: Patient Unable To Answer (11/28/2024) Received from [facility] Medical Domestic Abuse Assessment Do you feel safe in your relationships at home?: Unable to assess Physical Abuse: Unable to assess Verbal Abuse: Unable to assess Housing Stability: Patient Unable To Answer (12/01/2024) Received from [facility] Medical Housing Stability Vital Sign [...] LIPASE IMAGING: POCT glucose meter Performed by: [facility], [address] [place] [address] CLIA ID: [id number] POCT glucose meter Performed by: [facility], [address] [place] [address], [facility] [address] CLIA ID: [id number] POCT glucose meter Performed by: [facility], [address] [place] [address], [facility] [address] CLIA ID: [id number] POCT glucose meter Performed by: [facility], [address] [place] [address] CLIA ID: [id number] POCT glucose meter Performed by: [facility], [address] [place] [address] CLIA ID: [id number] POCT glucose meter Performed by: [facility], [address] [place] [address], [facility] [address] CLIA ID: [id number] ASSESSMENT AND PLAN: Jun Snyder is a [...] Brenton Goldstein MD General Surgery PGY-1 Pager #[phone] Cosigned by Tex Brush MD at 01/22/2025 [...] (CMS/HCC) (HCC) Acute respiratory failure with hypoxia ([facility]) [J96.01] Tracheostomy care ([facility]) [Z43.0] 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 Since [...] Normal [] Scar/Lesion/Mass Inspection of teeth/lips/gums Dentition: [][place] Teeth []Dentures Lips/Gums: [x]Intact []Lesion Present Mucosa: [x][place] []Moist [x]Dry Neck: External Appearance Overall Appearance: [...] Plan: Principal Problem: Complication of tracheostomy (CMS/HCC) ([facility]) Active Problems: Severe malnutrition (CMS/HCC) ([facility]) Assessment: Rectal bleeding with concern for [...] 2:43 PM I have personally performed a [id number] diagnostic evaluation on this patient on date of service 01/21/2025. History, labs, imaging studies, and electronic medical record have been reviewed by me. This note documented by the [x]customs house broker []ARMIN reflects my history, exam, and medical decision making. I have reviewed and agree with the care plan. Changes were made in the orders as necessary. ROS documentation was reviewed and negative unless otherwise stated in HPI. Additional pertinent interval history, ROS, and physical exam findings: Mr Snyder is a 59 year old male who presented to [facility] 01/19 after inadvertent removal of his tracheostomy. He was transferred to [facility] ICU for surgical evaluation. 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 This event happened approximately 45 minutes before ED arrival. ED attempted to place tracheostomy tube back but were unsuccessful. Decision was made to transfer patient to [facility] ICU for further airway management and [...] History: Diagnosis Date Acute renal failure (ARF) ([facility]) 10/19/2019 Anemia 12/30/2021 Calcification of abdominal aorta ([facility]) 10/08/202309/[address] abd Diverticulosis 10/08/2023 ESRD on hemodialysis ([facility]) ([facility]) 10/26/2019 Hemodialysis patient ([facility]) ([facility]) HTN (hypertension) 12/01/2022 Hypertension IgA nephropathy IgA nephropathy determined by biopsy of kidney 10/26/2019 Missed vaccination due to patient refusal 10/08/2023 Has a number of non-scientific based beliefs which interfere with his understanding and acceptance of the medical benefit of vaccination. Nonrheumatic aortic valve stenosis 10/08/2023 Paroxysmal A-fib ([facility]) ([facility]) 08/18/2023 Tobacco abuse 10/08/2023 Past Surgical History: Procedure Laterality Date APPENDECTOMY CARDIAC CATHETERIZATION N/A 10/09/2024 Performed by Bob Watson MD at [facility] Cardiac Cath/EP Lab CARDIAC CATHETERIZATION Bilateral 11/01/2024 Performed by Bob Watson MD at [facility] Cardiac Cath/EP Lab CARDIAC CATHETERIZATION N/A 11/01/2024 Performed by Bob Watson MD at [facility] Cardiac Cath/EP Lab FISTULAGRAM (HISTORICAL) Left 09/15/2021 LEFT UPPER ARM HX AV FISTULA CREATION IR EMBOLIZATION 10/14/2024 IR EMBOLIZATION 10/14/2024 [facility] SPECIAL PROCEDURES IR FISTULAGRAM 08/07/2022 IR [...] Patient Unable To Answer (12/01/2024) Received from [facility] Overall Financial Resource Strain (CARDIA) Difficulty of Paying Living Expenses: Patient unable to answer Food Insecurity: Patient Unable To Answer (12/01/2024) Received from [facility] Hunger Vital Sign Worried About Running Out of Food in the Last Year: Patient unable to answer Ran Out of Food in the Last Year: Patient unable to answer Transportation Needs: No Transportation Needs (01/18/2025) Received from [facility] Transportation Source Has lack of transportation kept you from medical appointments or from getting medications?: No Has lack of transportation kept you from meetings, work, or from getting things needed for daily living?: No Physical Activity: Not on file Stress: No Stress Concern Present (01/18/2025) Received from [facility] - Occupational Stress Questionnaire Feeling of Stress : Not at all Social Connections: Patient Unable To Answer (12/01/2024) Received from [facility] Medical Social Connection and Isolation Panel [NHANES] Frequency of Communication with Friends and Family: Patient unable to answer Frequency of Social Gatherings with Friends and Family: Patient unable to answer Attends Rastafari Services: Patient unable to answer Active Member of Clubs or Organizations: Patient unable to answer Attends Club or Organization Meetings: Patient unable to answer Marital Status: Patient unable to answer Intimate Partner Violence: Patient Unable To Answer (11/28/2024) Received from [facility] Domestic Abuse Assessment Do you feel safe in your relationships at home?: Unable to assess Physical Abuse: Unable to assess [facility] Domestic Abuse - Type of Abuse: Not on file [facility] Domestic Abuse - Time Frame: Not on file [facility] Domestic Abuse - Signs and Symptoms: Not on file Verbal Abuse: Unable to assess [facility] Domestic Abuse - Reported To: [...] Date Taking? Authorizing Provider epoetin rowan-epbx (Retacrit) 27706 UNIT/ML injection Inject 0.79 mL (7,900 Units) [...] Normal [] Scar/Lesion/Mass Inspection of teeth/lips/gums Dentition: [][place] Teeth []Dentures Lips/Gums: [x]Intact []Lesion Present Mucosa: [x][place] []Moist [][place]ry [place]ck: External Appearance Overall Appearance: [...] -- ABGs: No results for input(s): "PHART", "CZK6TKP", "PO2ART", "QFG6MTQ", "SO2ART", "O1RYDYLD" in the last 72 hours. Lactic Acid: [...] Plan: Principal Problem: Complication of tracheostomy (CMS/HCC) ([facility]) Active Problems: Severe malnutrition (CMS/HCC) ([facility]) Assessment: Passage of Bright red blood [...] normal BMI 18.5-24.9 Disposition: Remain on the [facility] Critical Care Time: Total critical [...] PM EDT I have personally performed a beuv-zw-kbno diagnostic evaluation on this patient on date of service 01/20/25. History, labs, imaging studies, and electronic medical record have been reviewed by me. This note documented by the []customs house broker []ARMIN reflects my history, exam, and medical [...] from the original note were not included. 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 He was transferred to [facility] on 11/28/24. There he was followed by our ID group and had had recurrent MSSA LRTI that was treated. Additionally, his sacral wound was debrided to bone on 01/02/25. Sacral wound Cx + E faecalis and Clostridium clostridioforme. He is to be on a course of Amp-Sulbactam x6 weeks through 02/13/25. He was discharged to SNF on 01/18. Patient presented to [facility] on 01/19 after self-dislodging tracheostomy. He was transferred to [facility] ICU for further airway management and [...] History: Diagnosis Date Acute renal failure (ARF) ([facility]) 10/19/2019 Anemia 12/30/2021 Calcification of abdominal aorta ([facility]) 10/08/202309/[address] abd Diverticulosis 10/08/2023 ESRD on hemodialysis ([facility] ([facility]) 10/26/2019 Hemodialysis patient ([facility]) ([facility]) HTN (hypertension) 12/01/2022 Hypertension IgA nephropathy IgA nephropathy determined by biopsy of kidney 10/26/2019 Missed vaccination due to patient refusal 10/08/2023 Has a number of non-scientific based beliefs which interfere with his understanding and acceptance of the medical benefit of vaccination. Nonrheumatic aortic valve stenosis 10/08/2023 Paroxysmal A-fib ([facility]) ([facility]) 08/18/2023 Tobacco abuse 10/08/2023 Past Surgical History: Past Surgical History: Procedure Laterality Date APPENDECTOMY CARDIAC CATHETERIZATION N/A 10/09/2024 Performed by Bob Watson MD at [facility] Cardiac Cath/EP Lab CARDIAC CATHETERIZATION Bilateral 11/01/2024 Performed by Bob Watson MD at [facility] Cardiac Cath/EP Lab CARDIAC CATHETERIZATION N/A 11/01/2024 Performed by Bob Watson MD at [facility] Cardiac Cath/EP Lab FISTULAGRAM (HISTORICAL) Left 09/15/2021 LEFT UPPER ARM HX AV FISTULA CREATION IR EMBOLIZATION 10/14/2024 IR EMBOLIZATION 10/14/2024 [facility] SPECIAL PROCEDURES IR FISTULAGRAM 08/07/2022 IR FISTULAGRAM 08/07/2022 [facility] IR IMAGING TONSILLECTOMY (HISTORICAL) Current Medications: Current Facility-Administered Medications Medication Dose Route Frequency Provider Last Rate Last Admin acetaminophen (Tylenol) tablet 1,000 mg 1,000 mg Oral q8h PRN Steve Lassiter MD 1,000 mg at 01/19/25 1540 ampicillin-sulbactam (Unasyn) 3,000 mg in sodium chloride 0.9 % 100 mL IVPB (Add-Cushing) 3,000 mg IntraVENous q12h Steve Lassiter MD [...] Patient Unable To Answer (12/01/2024) Received from [facility] Overall Financial Resource Strain (CARDIA) Difficulty of Paying Living Expenses: Patient unable to answer Food Insecurity: Patient Unable To Answer (12/01/2024) Received from [facility] Hunger Vital Sign Worried About Running Out of Food in the Last Year: Patient unable to answer Ran Out of Food in the Last Year: Patient unable to answer Transportation Needs: No Transportation Needs (01/18/2025) Received from [facility] Transportation Source Has lack of transportation kept you from medical appointments or from getting medications?: No Has lack of transportation kept you from meetings, work, or from getting things needed for daily living?: No Physical Activity: Not on file Stress: No Stress Concern Present (01/18/2025) Received from [facility] - Occupational Stress Questionnaire Feeling of Stress : Not at all Social Connections: Patient Unable To Answer (12/01/2024) Received from [facility] Medical Social Connection and Isolation Panel [NHANES] Frequency of Communication with Friends and Family: Patient unable to answer Frequency of Social Gatherings with Friends and Family: Patient unable to answer Attends Rastafari Services: Patient unable to answer Active Member of Clubs or Organizations: Patient unable to answer Attends Club or Organization Meetings: Patient unable to answer Marital Status: Patient unable to answer Intimate Partner Violence: Patient Unable To Answer (11/28/2024) Received from [facility] Medical Domestic Abuse Assessment Do you feel safe in your relationships at home?: Unable to assess Physical Abuse: Unable to assess [facility] Domestic Abuse - Type of Abuse: Not on file [facility] Domestic Abuse - Time Frame: Not on file [facility] Domestic Abuse - Signs and Symptoms: Not on file Verbal Abuse: Unable to assess [facility] Domestic Abuse - Reported To: Not on file Housing Stability: Patient Unable To Answer (12/01/2024) Received from [facility] Medical Housing Stability Vital Sign [...] 68* CALCIUM 10.6* 9.2 Recent Labs 01/19/25 03401/19/25 0652 01/20/25 0514 01/20/25 0801 WBC 11.6* 10.9* 10.5 -- HGB 9.1* 9.4* 6.6* 8.2* HCT 29.1* 30.2* 21.3* 25.8* PLT 404 416 279 -- LYMPHOPCT 15.3 13.7* 11.6* -- MONOPCT 12.6 11.1 10.1 -- BASOPCT 1.1 1.3 1.1 -- NEUTROABS 7.6* 7.5 7.5 -- Micro: Previous ([facility]) 01/02- sacral wound cx- E faecalis (Amp-S), skin ila, Clostridium clostrioforme 01/01- blood cx- 2/2 NG 12/30- blood cx- 2/2 NGTD 12/30- sputum cx- MSSA, resp ila 12/25- blood cx- 2/2 negative 12/14- sputum cx- MSSA, resp ila 12/14- MRSA pcr- MSSA 12/11- sputum cx- MSSA, resp ila Previous ([facility]) 11/28- L pleural fluid- negative 11/16- [...] cx- MSSA, resp ila 11/01- blood cx- / negative 10/25- H pylori ag- negative 10/19- [...] accounting for open encounter. Mikala MORAN PA-C [facility] Infectious Disease Cosigned by Gurdeep Cruz MD [...] gastrostomy tube placement, who presented to the [facility] emergency room from [facility] on 01/19/2025 where he is admitted for IV antibiotics for multiple infected wounds including dry gangrene to the left foot and sacral ulcers. Patient accidentally pulled his tracheostomy and was therefore transferred to the emergency room. Patient transferred to [facility] for higher level of care. GI [...] throughout entire last hospitalization. On presentation to [facility] 01/19/2025 hemoglobin was 9.1. This morning dropped to 6.6. No transfusion but repeat hemoglobin 3 hours later at 8.2. Currently getting dialysis. Reports he had a BM 5 minutes ago and he does not know what stools have looked like. He denies abdominal pain. No nausea, vomiting. Per patient girlfriend SNF has been flipping tful-nwg-mgrtv between Coumadin and heparin secondary to patient INR. Assume last dose of Coumadin to be 01/18/2025. History of appendectomy and PEG placement. Allergies: Lisinopril Current Medications: Current Facility-Administered Medications: acetaminophen (Tylenol) tablet 1,000 mg, 1,000 mg, Oral, q8h PRN, Steve Lassiter MD, 1,000 mg at 01/19/25 1540 ampicillin-sulbactam (Unasyn) 3,000 mg in sodium chloride 0.9 % 100 mL IVPB (Add-Cushing), 3,000 mg, IntraVENous, q12h, Steve Lassiter MD, [...] Diagnosis Date Noted Anemia 12/30/2021 Paroxysmal A-fib ([facility]) ([facility]) 08/18/2023 HTN (hypertension) 12/01/2022 ESRD on hemodialysis ([facility]) ([facility]) 10/26/2019 IgA nephropathy determined by biopsy of kidney 10/26/2019 Diverticulosis 10/08/2023 Nonrheumatic aortic valve stenosis 10/08/2023 Calcification of abdominal aorta ([facility]) 10/08/2023 Missed vaccination due to patient refusal 10/08/2023 Tobacco abuse 10/08/2023 Alcohol use disorder in remission 10/08/2023 Atrial flutter, unspecified type ([facility]) 10/03/2024 RSV (acute bronchiolitis due to respiratory syncytial virus) 10/03/2024 Aortic stenosis 10/03/2024 Upper GI bleed 10/03/2024 S/P AVR 10/03/2024 Acute hypoxic respiratory failure ([facility]) 10/03/2024 Acute encephalopathy 10/03/2024 Pneumoperitoneum 10/03/2024 Gastric ulceration 2024 Severe malnutrition ([facility]) ([facility]) 01/19/2025 Pleural effusion 11/28/2024 Peritonitis due to fungus ([facility]) 11/30/2024 History of abdominal surgery 11/30/2024 Leg DVT (deep venous thromboembolism), acute, left ([facility]) 11/30/2024 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, 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 of skin ([facility]) 11/30/2024 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 Leukocytosis 12/30/2024 Decubitus ulcer of sacral region, unstageable ([facility]) 12/30/2024 Pneumonia of both lungs due to methicillin susceptible Staphylococcus aureus (MSSA) ([facility]) 01/01/2025 Sacral osteomyelitis ([facility]) ([facility]) 01/03/2025 Acute respiratory failure with hypoxia ([facility]) [J96.01] 01/08/2025 Tracheostomy care ([facility]) [Z43.0] 01/08/2025 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[facility]) 01/08/2025 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 Resolved Ambulatory Problems Diagnosis Date Noted Acute renal failure (ARF) ([facility]) 10/19/2019 New onset a-fib ([facility]) ([facility]) 08/16/2023 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[facility]) 10/03/2024 Past Medical History: Diagnosis Date Hemodialysis patient ([facility]) ([facility]) Hypertension IgA nephropathy Past Surgical History: [...] Patient Unable To Answer (12/01/2024) Received from [facility] Overall Financial Resource Strain (CARDIA) Difficulty of Paying Living Expenses: Patient unable to answer Food Insecurity: Patient Unable To Answer (12/01/2024) Received from [facility] Hunger Vital Sign Worried About Running Out of Food in the Last Year: Patient unable to answer Ran Out of Food in the Last Year: Patient unable to answer Transportation Needs: No Transportation Needs (01/18/2025) Received from [facility] Transportation Source Has lack of transportation kept you from medical appointments or from getting medications?: No Has lack of transportation kept you from meetings, work, or from getting things needed for daily living?: No Physical Activity: Not on file Stress: No Stress Concern Present (01/18/2025) Received from [facility] Occupational Health - Occupational Stress Questionnaire Feeling of Stress : Not at all Social Connections: Patient Unable To Answer (12/01/2024) Received from [facility] Medical Social Connection and Isolation Panel [NHANES] Frequency of Communication with Friends and Family: Patient unable to answer Frequency of Social Gatherings with Friends and Family: Patient unable to answer Attends Rastafari Services: Patient unable to answer Active Member of Clubs or Organizations: Patient unable to answer Attends Club or Organization Meetings: Patient unable to answer Marital Status: Patient unable to answer Intimate Partner Violence: Patient Unable To Answer (11/28/2024) Received from [facility] Medical Domestic Abuse Assessment Do you feel safe in your relationships at home?: Unable to assess Physical Abuse: Unable to assess [facility] Domestic Abuse - Type of Abuse: Not on file [facility] Domestic Abuse - Time Frame: Not on file [facility] Domestic Abuse - Signs and Symptoms: Not on file Verbal Abuse: Unable to assess [facility] Domestic Abuse - Reported To: Not on file Housing Stability: Patient Unable To Answer (12/01/2024) Received from [facility] Vital Sign Unable to Pay for Housing [...] 10/12/24, Coumadin, last dose suspected 01/18/25 at [facility] Acute Right occipital ICH- 10/22/24 ESRD on [...] 59 y.o. male with who presented to [facility] as transfer for trach dislodgment. Palliative [...] on 01/20/25 at 7:18 AM. [facility] Nephrology Consult Note Consults HPI The patient is a history of ESRD secondary to IgA nephropathy, currently HD-dependent via a left upper extremity AVF, on a Wednesday//Wednesday ([facility]) dialysis schedule, with the last HD [...] History: Diagnosis Date Acute renal failure (ARF) ([facility]) 10/19/2019 Anemia 12/30/2021 Calcification of abdominal aorta ([facility]) 10/08/202309/[address] abd Diverticulosis 10/08/2023 ESRD on hemodialysis ([facility]) ([facility]) 10/26/2019 Hemodialysis patient ([facility]) ([facility]) HTN (hypertension) 12/01/2022 Hypertension IgA nephropathy IgA nephropathy determined by biopsy of kidney 10/26/2019 Missed vaccination due to patient refusal 10/08/2023 Has a number of non-scientific based beliefs which interfere with his understanding and acceptance of the medical benefit of vaccination. Nonrheumatic aortic valve stenosis 10/08/2023 Paroxysmal A-fib ([facility]) ([facility]) 08/18/2023 Tobacco abuse 10/08/2023 Social History [...] Patient Unable To Answer (12/01/2024) Received from [facility] Overall Financial Resource Strain (CARDIA) Difficulty of Paying Living Expenses: Patient unable to answer Food Insecurity: Patient Unable To Answer (12/01/2024) Received from [facility] Hunger Vital Sign Worried About Running Out of Food in the Last Year: Patient unable to answer Ran Out of Food in the Last Year: Patient unable to answer Transportation Needs: No Transportation Needs (01/18/2025) Received from [facility] Transportation Source Has lack of transportation kept you from medical appointments or from getting medications?: No Has lack of transportation kept you from meetings, work, or from getting things needed for daily living?: No Physical Activity: Not on file Stress: No Stress Concern Present (01/18/2025) Received from [facility] [place] [facility] of Occupational Health - Occupational Stress Questionnaire Feeling of Stress : Not at all Social Connections: Patient Unable To Answer (12/01/2024) Received from [facility] Medical Social Connection and Isolation Panel [NHANES] Frequency of Communication with Friends and Family: Patient unable to answer Frequency of Social Gatherings with Friends and Family: Patient unable to answer Attends Rastafari Services: Patient unable to answer Active Member of Clubs or Organizations: Patient unable to answer Attends Club or Organization Meetings: Patient unable to answer Marital Status: Patient unable to answer Intimate Partner Violence: Patient Unable To Answer (11/28/2024) Received from [facility] Domestic Abuse Assessment Do you feel safe in your relationships at home?: Unable to assess Physical Abuse: Unable to assess [facility] Domestic Abuse - Type of Abuse: Not on file [facility] Domestic Abuse - Time Frame: Not on file [facility] Domestic Abuse - Signs and Symptoms: Not on file Verbal Abuse: Unable to assess [facility] Domestic Abuse - Reported To: Not on file Housing Stability: Patient Unable To Answer (12/01/2024) Received from [facility] Medical Housing Stability Vital Sign [...] sodium chloride 0.9 % 100 mL IVPB (Add-Cushing), 3,000 mg, IntraVENous, Daily, Steve Lassiter MD [...] airway management needs. Maintain NPO status per SPANISH INTERPRETER recommendations until airway stabilization; consider modification of HD orders if NPO persists beyond 24-48 hours impacting volume/nutrition Please message me through [employer] chat with any questions or concerns. Wellington Nicole MD 01/19/2025 4:13 PM [facility] [address] [place] [address], [address] [place] [address] Office: [phone] Associated Order(s): IP CONSULT TO DIETITIAN; IP [...] EN only as sole source of nutrition. SPANISH INTERPRETER was following while pt was at [facility]. SPANISH INTERPRETER consulted inpatient and recommending strict NPO. RD [...] pt was receiving and tolerating while at [facility]. Will monitor tolerance of nutrition as initiated and increased to goal. Will continue to monitor SPANISH INTERPRETER in the event that oral diet can [...] Accumulation: No significant fluid accumulation (per flowsheets) Supervisor [employer] Strength: Not Performed Nutrition Assessment: pt with [...] Prostat, pt was stabilized and transferred to [facility] for ongoing care, vent liberation and rehab, while at [facility] RD was following and pt was receiving Nepro @ 50mls/hr, pt was discharged from [facility] to SNF on 01/18/25, pt now presented to [facility] ED on 01/19/25 [facility] due to trach dislodgement, pt stated he was trying to disconnect his vent to transfer to another room but accidentally pulled out his tracheostomy, event happened approximately 45 minutes before ED arrival, ED attempted to place tracheostomy tube back but was unsuccessful thus decision was made to transfer pt to [facility] ICU for further airway management and [...] states he has been like this since [facility], pt was transferred to ICU for further management, Nephrology and wound care consults pending, SPANISH INTERPRETER was also consulted and recommending strict NPO. 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, states his goals are to 'eat ice [...] (kg): 58.9 kg Total Energy Requirements (kcals/day): 2060-2356kcals/day Weight Used for Protein Requirements: Current Weight in Kg Used for Protein Requirements: 58.9 kg Estimated Total Protein (g/day): 82-106gm pro/day- + wounds and ESRD/HD Estimated Daily Total Fluid (ml/day): per MD recommendations Nutrition Related Findings: Pt presented from SNF, prolonged admit at [facility] 10/03-11/28/24, discharged to [facility] and recently transferred to [facility] Orientation Level: Oriented to situation, Oriented [...] bedscale, 10/31: 200#, 11/28: 161#, 01/18: 142#) [place] Body Weight (lbs) (Calculated): 166 lbs [place] Body Weight (Kg) (Calculated): 75 kg % [place] Body Weight (Calculated): 78.2 % BMI (kg/m2) [...] Nutrition Dana El RD Contact: available via 2C2P or *[phone] Associated Order(s): INPATIENT CONSULT TO WOUND CARE PROVIDERS Images from the original note were not included. [facility] Wound Care CONSULT Note Jun Snyder [...] diverticulosis, IgA nephropathy, severe that presented to [facility] ED from a facility due to trach dislodgement. Wound Care consulted for Pressure Injury sacrum and Ischemic ulcers to left toes" PAST MEDICAL HISTORY Past Medical History: Diagnosis Date Acute renal failure (ARF) ([facility]) 10/19/2019 Anemia 12/30/2021 Calcification of abdominal aorta ([facility]) 10/08/202309/[address] abd Diverticulosis 10/08/2023 ESRD on hemodialysis ([facility]) ([facility]) 10/26/2019 Hemodialysis patient ([facility]) ([facility]) HTN (hypertension) 12/01/2022 Hypertension IgA nephropathy IgA nephropathy determined by biopsy of kidney 10/26/2019 Missed vaccination due to patient refusal 10/08/2023 Has a number of non-scientific based beliefs which interfere with his understanding and acceptance of the medical benefit of vaccination. Nonrheumatic aortic valve stenosis 10/08/2023 Paroxysmal A-fib ([facility]) ([facility]) 08/18/2023 Tobacco abuse 10/08/2023 PAST SURGICAL HISTORY Past Surgical History: Procedure Laterality Date APPENDECTOMY CARDIAC CATHETERIZATION N/A 10/09/2024 Performed by Bob Watson MD at [facility] Cardiac Cath/EP Lab CARDIAC CATHETERIZATION Bilateral 11/01/2024 Performed by Bob Watson MD at [facility] Cardiac Cath/EP Lab CARDIAC CATHETERIZATION N/A 11/01/2024 Performed by Bbo Watson MD at [facility] Cardiac Cath/EP Lab FISTULAGRAM (HISTORICAL) Left 09/15/2021 LEFT UPPER ARM HX AV FISTULA CREATION IR EMBOLIZATION 10/14/2024 IR EMBOLIZATION 10/14/2024 [facility] SPECIAL PROCEDURES IR FISTULAGRAM 08/07/2022 IR FISTULAGRAM 08/07/2022 [facility] IR IMAGING TONSILLECTOMY (HISTORICAL) FAMILY HISTORY [...] Medication Sig Dispense Refill epoetin rowan-epbx (Retacrit) 80121 UNIT/ML injection Inject 0.79 mL (7,900 Units) [...] to follow Recommend to follow up at [facility] Outpatient wound care center after [...] 4:05 PM EDT documented in this encounter [facility] 01-19-2025 History and physical note Images from [...] diverticulosis, IgA nephropathy, severe that presented to [facility] ED from a facility due to trach dislodgement. Per patient, was trying to disconnect his vent to transfer to another room but accidentally pulled out his tracheostomy. This event happened approximately 45 minutes before ED arrival. ED attempted to place tracheostomy tube back but were unsuccessful. Decision was made to transfer patient to [facility] ICU for further airway management and [...] History: Diagnosis Date Acute renal failure (ARF) ([facility]) 10/19/2019 Anemia 12/30/2021 Calcification of abdominal aorta ([facility]) 10/08/202309/[address] abd Diverticulosis 10/08/2023 ESRD on hemodialysis ([facility]) ([facility]) 10/26/2019 Hemodialysis patient [place] ([facility]) HTN (hypertension) 12/01/2022 Hypertension IgA nephropathy IgA nephropathy determined by biopsy of kidney 10/26/2019 Missed vaccination due to patient refusal 10/08/2023 Has a number of non-scientific based beliefs which interfere with his understanding and acceptance of the medical benefit of vaccination. Nonrheumatic aortic valve stenosis 10/08/2023 Paroxysmal A-fib ([facility]) ([facility]) 08/18/2023 Tobacco abuse 10/08/2023 Past Surgical History: Procedure Laterality Date APPENDECTOMY CARDIAC CATHETERIZATION N/A 10/09/2024 Performed by Bob Watson MD at [facility] Cardiac Cath/EP Lab CARDIAC CATHETERIZATION Bilateral 11/01/2024 Performed by Bob Watson MD at [facility] Cardiac Cath/EP Lab CARDIAC CATHETERIZATION N/A 11/01/2024 Performed by Bob Watson MD at [facility] Cardiac Cath/EP Lab FISTULAGRAM (HISTORICAL) Left 09/15/2021 LEFT UPPER ARM HX AV FISTULA CREATION IR EMBOLIZATION 10/14/2024 IR EMBOLIZATION 10/14/2024 [facility] SPECIAL PROCEDURES IR FISTULAGRAM 08/07/2022 IR FISTULAGRAM 08/07/2022 [facility] IR IMAGING TONSILLECTOMY (HISTORICAL) Family History [...] Patient Unable To Answer (12/01/2024) Received from [facility] Overall Financial Resource Strain (CARDIA) Difficulty of Paying Living Expenses: Patient unable to answer Food Insecurity: Patient Unable To Answer (12/01/2024) Received from [facility] Hunger Vital Sign Worried About Running Out of Food in the Last Year: Patient unable to answer Ran Out of Food in the Last Year: Patient unable to answer Transportation Needs: No Transportation Needs (01/18/2025) Received from [facility] Transportation Source Has lack of transportation kept you from medical appointments or from getting medications?: No Has lack of transportation kept you from meetings, work, or from getting things needed for daily living?: No Physical Activity: Not on file Stress: No Stress Concern Present (01/18/2025) Received from [facility] Health - Occupational Stress Questionnaire Feeling of Stress : Not at all Social Connections: Patient Unable To Answer (12/01/2024) Received from [facility] Medical Social Connection and Isolation Panel [NHANES] Frequency of Communication with Friends and Family: Patient unable to answer Frequency of Social Gatherings with Friends and Family: Patient unable to answer Attends Rastafari Services: Patient unable to answer Active Member of Clubs or Organizations: Patient unable to answer Attends Club or Organization Meetings: Patient unable to answer Marital Status: Patient unable to answer Intimate Partner Violence: Patient Unable To Answer (11/28/2024) Received from [facility] Medical Domestic Abuse Assessment Do you feel safe in your relationships at home?: Unable to assess Physical Abuse: Unable to assess [facility] Domestic Abuse - Type of Abuse: Not on file [facility] Domestic Abuse - Time Frame: Not on file [facility] Domestic Abuse - Signs and Symptoms: Not on file Verbal Abuse: Unable to assess [facility] Domestic Abuse - Reported To: Not on file Housing Stability: Patient Unable To Answer (12/01/2024) Received from [facility] Housing Stability Vital Sign Unable to Pay for Housing in the Last Year: Patient unable to answer Number of Times Moved in the Last Year: 0 Homeless in the Last Year: Patient unable to answer Allergies Allergen Reactions Lisinopril Swelling and Angioedema Prior to Admission medications Medication Sig Start Date End Date Taking? Authorizing Provider epoetin rowan-epbx (Retacrit) 85192 UNIT/ML injection Inject 0.79 mL (7,900 Units) [...] Normal [] Scar/Lesion/Mass Inspection of teeth/lips/gums Dentition: [][place] Teeth []Dentures Lips/Gums: []Intact []Lesion Present Mucosa: [][place] []Moist []Dry Neck: External Appearance Tracheostomy hole [...] 18.5* ABGs: No results for input(s): "PHART", "[id number]", "PO2ART", "[id number]", "SO2ART", "[id number]" in the last 72 hours. Lactic Acid: [...] Plan: Principal Problem: Complication of tracheostomy (CMS/HCC) ([facility]) Assessment: Trach dislodgement Chest pain ESRD Chronic [...] PM EDT I have personally performed a [id number] diagnostic evaluation on this patient on date [...] to have bile peritonitis 11/28/24: transferred to [facility]. He continued on HD at [facility]. Reportedly had ongoing issues with delirium according to his partner, Toma who was at bedside and provided history. Developed severe sacral ulcer and sacral ostomyelitis at [facility]. He was progressing with SPANISH INTERPRETER and using a PMV. Has not done any capping trials. Was transferred to a facility in [place]; there he inadvertently dislodged his tracheostomy. He initially presented to the [facility] emergency dept. He was transferred to [facility] in case of emergetn airway compromise. Assessment: Trach dislodgement, high risk of respiratory failure Chronic respiratory failure due to failure of airway protection ESRD Sacral osteomyelitis s/p AVR Full Code Plan: Admit to MICU Close monitorign for airway compromise Restart abx for osteomyelitis SPANISH INTERPRETER eval; MBSS Critical Care Time: 33 minutes Total critical care time caring for this patient with life threatening, unstable organ failure, including direct patient contact, management of life support systems, review of data including imaging and labs, discussions with other team members and physicians, excluding procedures. Electronically signed by Bruce Nguyen MD documented in this encounter [facility] 01-19-2025 Emergency department Note EMERGENCY DEPARTMENT ENCOUNTER [...] who presents to the emergency department From correction facility for accidental dislodgment of his tracheostomy [...] nephropathy, hypertension, and currently being treated at correction facility with IV antibiotics for multiple infected [...] History: Diagnosis Date Acute renal failure (ARF) ([facility]) 10/19/2019 Anemia 12/30/2021 Calcification of abdominal aorta ([facility]) 10/08/202309/[address] abd Diverticulosis 10/08/2023 ESRD on hemodialysis ([facility]) ([facility]) 10/26/2019 Hemodialysis patient [place] ([facility]) HTN (hypertension) 12/01/2022 Hypertension IgA nephropathy IgA nephropathy determined by biopsy of kidney 10/26/2019 Missed vaccination due to patient refusal 10/08/2023 Has a number of non-scientific based beliefs which interfere with his understanding and acceptance of the medical benefit of vaccination. Nonrheumatic aortic valve stenosis 10/08/2023 Paroxysmal A-fib ([facility]) ([facility]) 08/18/2023 Tobacco abuse 10/08/2023 SURGICAL HISTORY Past Surgical History: Procedure Laterality Date APPENDECTOMY CARDIAC CATHETERIZATION N/A 10/09/2024 Performed by Bob Watson MD at [facility] Cardiac Cath/EP Lab CARDIAC CATHETERIZATION Bilateral 11/01/2024 Performed by Bob Watson MD at [facility] Cardiac Cath/EP Lab CARDIAC CATHETERIZATION N/A 11/01/2024 Performed by Bob Watson MD at [facility] Cardiac Cath/EP Lab FISTULAGRAM (HISTORICAL) Left 09/15/2021 LEFT UPPER ARM HX AV FISTULA CREATION IR EMBOLIZATION 10/14/2024 IR EMBOLIZATION 10/14/2024 [facility] SPECIAL PROCEDURES IR FISTULAGRAM 08/07/2022 IR FISTULAGRAM 08/07/2022 [facility] IR IMAGING TONSILLECTOMY (HISTORICAL) CURRENT MEDICATIONS Previous Medications EPOETIN ROWAN-EPBX (RETACRIT) 27607 UNIT/ML INJECTION Inject 0.79 mL (7,900 Units) [...] Patient Unable To Answer (12/01/2024) Received from [facility] Medical Overall Financial Resource Strain (CARDIA) Difficulty of Paying Living Expenses: Patient unable to answer Food Insecurity: Patient Unable To Answer (12/01/2024) Received from [facility] Medical Hunger Vital Sign Worried About Running Out of Food in the Last Year: Patient unable to answer Ran Out of Food in the Last Year: Patient unable to answer Transportation Needs: No Transportation Needs (01/18/2025) Received from [facility] Transportation Source Has lack of transportation kept you from medical appointments or from getting medications?: No Has lack of transportation kept you from meetings, work, or from getting things needed for daily living?: No Stress: No Stress Concern Present (01/18/2025) Received from [facility] - Occupational Stress Questionnaire Feeling of Stress : Not at all Social Connections: Patient Unable To Answer (12/01/2024) Received from [facility] Medical Social Connection and Isolation Panel [NHANES] Frequency of Communication with Friends and Family: Patient unable to answer Frequency of Social Gatherings with Friends and Family: Patient unable to answer Attends Rastafari Services: Patient unable to answer Active Member of Clubs or Organizations: Patient unable to answer Attends Club or Organization Meetings: Patient unable to answer Marital Status: Patient unable to answer Intimate Partner Violence: Patient Unable To Answer (11/28/2024) Received from [facility] Medical Domestic Abuse Assessment Do you feel safe in your relationships at home?: Unable to assess Physical Abuse: Unable to assess Verbal Abuse: Unable to assess Housing Stability: Patient Unable To Answer (12/01/2024) Received from [facility] Medical Housing Stability Vital Sign [...] nursing note reviewed. Exam conducted with a gallery or museum curator present. Constitutional: General: He is not in [...] accidental dislodgment of his tracheostomy tube at correction facility as described in the HPI. Reportedly [...] necessary. Dr. Ponce recommended ICU admission to [facility] for observation with possible replacement tracheostomy if needed. ICU at [facility] was consulted and I spoke with Dr. Nguyen regarding admission to their service. He agrees with this indication and patient admitted to [facility] ICU. Diagnoses as of 01/19/25 0300 Complication of tracheostomy (CMS/[facility]) ([facility]) Medications - No data to display [...] FINAL IMPRESSION 1. Complication of tracheostomy (CMS/HCC) ([facility]) DISPOSITION Admit 01/19/2025 03:00:18 AM PATIENT [...] 01/19/25 0301 Pt arrived Via EMS from [facility]. Pt removed his trach which he is typically on 5L. 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 He is NPO and receiving IV antibiotics for the results of his blood cultures. Pt was recently transferred to [place] from [facility]. Pt arrived with a pressure of 88/52 and 96% on room air. RT and MD at bedside upon arrival. documented in this encounter [facility] 01-18-2025 History of Presen t illness Narrative [facility] billing documented in this encounter [facility] 01-17-2025 History of Presen t illness Narrative Seen at [facility] documented in this encounter [facility] 01-17-2025 History of Presen t illness Narrative [facility] billing documented in this encounter [facility] 01-16-2025 History of Presen t illness Narrative [facility] billing documented in this encounter [facility] 01-15-2025 History of Presen t illness Narrative Seen at [facility] documented in this encounter [facility] 01-15-2025 History of Presen t illness Narrative [facility] billing documented in this encounter [facility] 01-14-2025 History of Presen t illness Narrative [facility] documented in this encounter [facility] 01-12-2025 History of Presen t illness Narrative [facility] documented in this encounter [facility] 01-12-2025 History of Presen t illness Narrative Seen at [facility] documented in this encounter [facility] 01-11-2025 History of Presen t illness Narrative [facility] documented in this encounter [facility] 01-11-2025 History of Presen t illness Narrative Seen at [facility] documented in this encounter [facility] 01-10-2025 History of Presen t illness Narrative [facility] documented in this encounter [facility] 01-09-2025 History of Presen t illness Narrative [facility] documented in this encounter [facility] 01-09-2025 History of Presen t illness Narrative Seen at [facility] documented in this encounter [facility] 01-08-2025 History of Presen t illness Narrative [facility] documented in this encounter [facility] 01-08-2025 History of Presen t illness Narrative Seen at [facility] documented in this encounter [facility] 01-05-2025 History of Presen t illness Narrative Patient seen by me at [facility]. Documentation including history, exam and plan documented in [facility] EMR. This encounter is for billing only. documented in this encounter [facility] 01-05-2025 History of Presen t illness Narrative [facility] 01/05 documented in this encounter [facility] 01-04-2025 History of Presen t illness Narrative Patient seen by me at [facility]. Documentation including history, exam and plan documented in [facility] EMR. This encounter is for billing only. documented in this encounter [facility] 01-04-2025 History of Presen t illness Narrative [facility] 01/04 documented in this encounter [facility] 01-03-2025 History of Presen t illness Narrative Patient seen by me at [facility]. Documentation including history, exam and plan documented in [facility] EMR. This encounter is for billing only. documented in this encounter [facility] 01-03-2025 History of Presen t illness Narrative Pt seen at [facility]. Complete documentation under [facility]'s EMR. documented in this encounter [facility] 01-02-2025 History of Presen t illness Narrative Pt seen at [facility]. Complete documentation under [facility]'s EMR. documented in this encounter [facility] 01-02-2025 History of Presen t illness Narrative Patient seen by me at [facility]. Documentation including history, exam and plan documented in [facility] EMR. This encounter is for billing only. documented in this encounter [facility] 01-01-2025 History of Presen t illness Narrative Pt seen at [facility]. Complete documentation under [facility]'s EMR. documented in this encounter [facility] 01-01-2025 History of Presen t illness Narrative Patient seen by me at [facility]. Documentation including history, exam and plan documented in [facility] EMR. This encounter is for billing only. documented in this encounter [facility] 01-01-2025 History of Presen t illness Narrative Subsequent visit today at [facility] documented in this encounter [facility] 12-30-2024 History of Presen t illness Narrative Pt seen at [facility]. Complete documentation under [facility] EMR. documented in this encounter [facility] 12-28-2024 History of Presen t illness Narrative Patient seen by me at [facility]. Complete documentation including history with assessment and plan were documented in [facility] EMR. This encounter is for billing only. documented in this encounter [facility] 12-27-2024 History of Presen t illness Narrative Patient seen by me at [facility]. Complete documentation including history with assessment and plan were documented in [facility] EMR. This encounter is for billing only. documented in this encounter [facility] 12-26-2024 History of Presen t illness Narrative Patient seen by me at [facility]. Complete documentation including history with assessment and plan were documented in [facility] EMR. This encounter is for billing only. documented in this encounter [facility] 12-22-2024 History of Presen t illness Narrative Patient seen by me at [facility] in [place]. Complete documentation including history with assessment and plan were documented in [facility] EMR. This encounter is for billing only. documented in this encounter [facility] 12-21-2024 History of Presen t illness Narrative Patient seen by me at [facility] in [place]. Complete documentation including history with assessment and plan were documented in [facility] EMR. This encounter is for billing only. documented in this encounter [facility] 12-20-2024 History of Presen t illness Narrative Patient seen by al at [facility] in [place]. Complete documentation including history with assessment and plan were documented in [facility] EMR. This encounter is for billing only. documented in this encounter [facility] 12-19-2024 History of Presen t illness Narrative Patient seen by al at [facility] in [place]. Complete documentation including history with assessment and plan were documented in [facility] EMR. This encounter is for billing only. documented in this encounter [facility] 12-18-2024 History of Presen t illness Narrative Patient seen by me at [facility] in [place]. Complete documentation including history with assessment and plan were documented in [facility] EMR. This encounter is for billing only. documented in this encounter [facility] 12-15-2024 History of Presen t illness Narrative [facility] documented in this encounter [facility] 12-14-2024 History of Presen t illness Narrative [facility] billing documented in this encounter [facility] 12-14-2024 Telephone encount er Note Patient is still at [facility]. I spoke to Karla, manager case, and she stated that patient has a tentative discharge date on 12/25. He will be going to a facility after that. Karla is not sure which one. I will check back with her closer to that date. [facility] 12-14-2024 Miscellaneous Notes Formattin g of this note might be different from the original. Patient is still at [facility]. I spoke to Karla, manager case, and she stated that patient has a tentative discharge date on 12/25. He will be going to a facility after that. Karla is not sure which one. I will check back with her closer to that date. Called and spoke with patients son to discuss scheduling hospital follow up appointment. Omar advised me that the patient will be in the hospital joint terminal attack controller as a lot happened while he was hospitalized. Patient does not wish to schedule at this time. Thanks Attempted to call patient to schedule hospital follow up. Patients phone is restricted. Unable to lvm. Sent [employer] message. Thanks Will hold to contact patient s/p discharge. Thanks Pt remains admitted at this time. GI staff to contact pt for scheduling OV s/p discharge. Patient needs close follow up for repeat EGD for duodenal ulcer, had IR embolization of GDA. Currently in ICU. Thanks. documented in this encounter [facility] 12-13-2024 History of Presen t illness Narrative [facility] billing documented in this encounter [facility] 12-13-2024 Telephone encount er Note Called and spoke with patients son to discuss scheduling hospital follow up appointment. Omar advised me that the patient will be in the hospital joint terminal attack controller as a lot happened while he was hospitalized. Patient does not wish to schedule at this time. Thanks [facility] 12-13-2024 Miscellaneous Notes Formattin g of this [...] in ICU. Thanks. documented in this encounter [facility] 12-12-2024 History of Presen t illness Narrative [facility] billing documented in this encounter [facility] 12-11-2024 History of Presen t illness Narrative Seen at [facility] 12/11/24 documented in this encounter [facility] 12-11-2024 History of Presen t illness Narrative [facility] billing documented in this encounter [facility] 12-11-2024 Telephone encount er Note Attempted to call patient to schedule hospital follow up. Patients phone is restricted. Unable to lvm. Sent MyChart message. Thanks [facility] 12-11-2024 Miscellaneous Notes Formattin g of this note might be different from the original. Attempted to call patient to schedule hospital follow up. Patients phone is restricted. Unable to lvm. Sent [employer] message. Thanks Will hold to contact patient s/p discharge. Thanks Pt remains admitted at this time. GI staff to contact pt for scheduling OV s/p discharge. Patient needs close follow up for repeat EGD for duodenal ulcer, had IR embolization of GDA. Currently in ICU. Thanks. documented in this encounter [facility] 12-07-2024 History of Presen t illness Narrative [facility] documented in this encounter [facility] 12-07-2024 History of Presen t illness Narrative [facility] 12/07/24 documented in this encounter [facility] 12-06-2024 History of Presen t illness Narrative [facility] documented in this encounter [facility] 12-06-2024 History of Presen t illness Narrative [facility] 12/06/24 documented in this encounter [facility] 12-05-2024 History of Presen t illness Narrative [facility] documented in this encounter [facility] 12-04-2024 History of Presen t illness Narrative Follow-up visit today at [facility] documented in this encounter [facility] 12-04-2024 History of Presen t illness Narrative [facility] 12/04/24 documented in this encounter [facility] 12-01-2024 History of Presen t illness Narrative [facility] 12/01/24 documented in this encounter [facility] 12-01-2024 History of Presen t illness Narrative I did a level 4 consult on this patient [facility]. In reviewing Dr. Garcia's note she noted acute systolic right heart failure related to and accompanied by pulmonary hypertension. She noted the need for midodrine. Dr. Chow waited on atrial flutter and atrial tachycardia. He was put on amiodarone and attempt was YG cardioversion, unsuccessful. The last electrocardiogram done at the [facility] showed atrial flutter. documented in this encounter [facility] 12-01-2024 History of Presen t illness Narrative [facility] billing documented in this encounter [facility] 11-30-2024 History of Presen t illness Narrative [facility] billing documented in this encounter [facility] 11-30-2024 History of Presen t illness Narrative [facility] 11/30/24 documented in this encounter [facility] 11-29-2024 History of Presen t illness Narrative [facility] 11/29/24 documented in this encounter [facility] 11-29-2024 History of Presen t illness Narrative [facility] billing documented in this encounter [facility] 11-28-2024 Telephone encount er Note Name of Caller: Herminia Contact Physician requesting Consult: Michelle Caruso APRN Patient Location (facility name, room, bed number): [facility] specialty [facility], 116 Patient Diagnosis/Reason for Consult:SOB Provider being paged: Dr Nathan Time page was sent: [phone] Department of provider being paged: [facility] Page Content: routine consult requested. Message sent via [employer] [facility] 11-28-2024 Miscellaneous Notes Formattin g of this note might be different from the original. Name of Caller: Herminia Contact Physician requesting Consult: Michelle Caruso APRN Patient Location (facility name, room, bed number): [facility], 116 Patient Diagnosis/Reason for Consult:SOB Provider being paged: Dr Nathan Time page was sent: [phone] Department of provider being paged: [facility] Page Content: routine consult requested. Message sent via Secure Chat documented in this encounter [facility] 10-17-2024 Telephone encount er Note Will hold to contact patient s/p discharge. Thanks [facility] 10-17-2024 Miscellaneous Notes Formattin g of this note might be different from the original. Will hold to contact patient s/p discharge. Thanks Pt remains admitted at this time. GI staff to contact pt for scheduling OV s/p discharge. Patient needs close follow up for repeat EGD for duodenal ulcer, had IR embolization of GDA. Currently in ICU. Thanks. documented in this encounter [facility] 10-17-2024 Miscellaneous Notes Formattin g of this note might be different from the original. Will hold to contact patient s/p discharge. Thanks Pt remains admitted at this time. GI staff to contact pt for scheduling OV s/p discharge. Patient needs close follow up for repeat EGD for duodenal ulcer, had IR embolization of GDA. Currently in ICU. Thanks. documented in this encounter [facility] 10-17-2024 Telephone encount er Note Pt remains admitted at this time. GI staff to contact pt for scheduling OV s/p discharge. [facility] 10-16-2024 Telephone encount er Note Patient needs close follow up for repeat EGD for duodenal ulcer, had IR embolization of GDA. Currently in ICU. Thanks. [employer] Phone: 10-16-2024 Miscellaneous Notes Formattin g of this note might be different from the original. Patient needs close follow up for repeat EGD for duodenal ulcer, had IR embolization of GDA. Currently in ICU. Thanks. documented in this encounter [facility] 10-12-2024 Note Formatting of this n ote is different from the original. Patient: Jair Snyder Procedure Summary Date: 10/12/24 Room / Location: [address] Operating Room Anesthesia Start: 725 Anesthesia [...] once all PACU criteria has been met. [facility] 10-12-2024 Miscellaneous Notes Formattin g of this note is different from the original. Patient: Jair Snyder Procedure Summary Date: 10/12/24 Room / Location: [facility] OR [address] [place] [address] Operating Room Anesthesia Start: 725 Anesthesia Stop: [...] has been met. documented in this encounter [facility] 10-12-2024 Anesthesiology Postoperative evaluation and management note Patient: Jair Snyder Procedure Summary Date: 10/12/24 Room / Location: [address] Operating Room Anesthesia Start: 725 Anesthesia [...] opportunity for questions and acknowledgement of understanding. [employer] Phone: 10-12-2024 Surgical operatio n note Patient: Jair Snyder Procedure Summary Date: 10/12/24 Room / Location: [facility] Operating Room Anesthesia Start: 725 Anesthesia Stop: [...] during the procedure: no complications. Staffing Performed: PHOTOGRAMMETRIC STEREO COMPILER Resident/PHOTOGRAMMETRIC STEREO COMPILER: Rudolph German CRNA Associated Order(s): Airway Airway Date/Time: 10/12/2024 7:38 AM Urgency: scheduled Airway not difficult General Information and Staff Patient location during procedure: Procedural Anesthesiologist: Vincent Wilson MD Resident/PHOTOGRAMMETRIC STEREO COMPILER: Rudolph German CRNA Performed: anesthesiologist Indications and [...] procedure well with no complications. Staffing Performed: PHOTOGRAMMETRIC STEREO COMPILER Resident/PHOTOGRAMMETRIC STEREO COMPILER: Rudolph German CRNA Patient: Jair Snyder Procedure Information Date/Time: 10/12/24 4697 Procedures: AORTIC VALVE REPAIR, POSSIBLE REPLACEMENT (Chest) - 7:30 am, 5 hours TRICUSPID REPLACEMENT WITH RING (Chest) TRANSESOPHAGEAL ECHOCARDIOGRAM Location: [facility] OR [facility] Operating Room Surgeons: Luciano Montemayor MD Relevant Problems Cardio (+) Aortic stenosis (+) Atrial flutter, unspecified type ([facility]) (+) Calcification of abdominal aorta ([facility]) (+) HTN (hypertension) (+) Nonrheumatic aortic valve stenosis (+) Paroxysmal A-fib (CMS/HCC) ([facility]) GI (+) Diverticulosis /Renal (+) ESRD on hemodialysis (CMS/HCC) ([facility]) (+) IgA nephropathy determined by biopsy of kidney Past Medical History: Past Medical History: 10/19/2019: Acute renal failure (ARF) ([facility]) 12/30/2021: Anemia 10/08/2023: Calcification of abdominal aorta ([facility]) Comment: 09/[address] abd 10/08/2023: Diverticulosis 10/26/2019: ESRD on hemodialysis (CMS/HCC) ([facility]) No date: Hemodialysis patient (CMS/HCC) ([facility]) 12/01/2022: HTN (hypertension) No date: Hypertension No date: IgA nephropathy 10/26/2019: IgA nephropathy determined by biopsy of kidney 10/08/2023: Missed vaccination due to patient refusal Comment: Has a number of non-scientific based beliefs which interfere with his understanding and acceptance of the medical benefit of vaccination. 10/08/2023: Nonrheumatic aortic valve stenosis 08/18/2023: Paroxysmal A-fib (CMS/HCC) ([facility]) 10/08/2023: Tobacco abuse Past Surgical History: Past Surgical History: No date: APPENDECTOMY 10/09/2024: CARDIAC CATHETERIZATION; N/A Comment: Performed by Bob Watson MD at [facility] Cardiac Cath/EP Lab 09/15/2021: FISTULAGRAM (HISTORICAL); Left Comment: LEFT UPPER ARM No date: HX AV FISTULA CREATION 08/07/2022: IR FISTULAGRAM Comment: IR FISTULAGRAM 08/07/2022 [facility] IR IMAGING No date: TONSILLECTOMY (HISTORICAL) [...] Additional Equipment Requests documented in this encounter [facility] 10-12-2024 Procedure anesthe jaki Narrative Procedure Name [...] Per order 10/12/24 0737 by Rudolph German, PHOTOGRAMMETRIC STEREO COMPILER 10/16/24 0930 by Wanda Hays RN ETT [...] Catheter Triple Placement Date: 10/12/24; Placement Time: 07 (created via procedure documentation); Size: 8.5 Fr; [...] Hunter Dove RN documented [facility] this [id number] Anesthesiology procedure note* Anesthesia Procedure Notes - [...] during the procedure: no complications. Staffing Performed: PHOTOGRAMMETRIC STEREO COMPILER Resident/PHOTOGRAMMETRIC STEREO COMPILER: Rudolph German CRNA [facility]01-16-2025 Anesthesiology procedure note* Anesthesia Procedure Notes - Rudolph German CRNA - 10/12/2024 7:49 AM ESTAssociated Order(s): Airway Airway Date/Time: 10/12/2024 7:38 AM Urgency: scheduled Airway not difficult General Information and Staff Patient location during procedure: Procedural Anesthesiologist: Vincent Wilson MD Resident/PHOTOGRAMMETRIC STEREO COMPILER: Rudolph German CRNA Performed: anesthesiologist Indications and [...] 21 Number of attempts at approach: 1 [facility]01-16-2025 Anesthesiology procedure note* Anesthesia Procedure Notes - [...] procedure well with no complications. Staffing Performed: PHOTOGRAMMETRIC STEREO COMPILER Resident/PHOTOGRAMMETRIC STEREO COMPILER: Rudolph German CRNA [id number] Anesthesiology Preoperative evaluation and management note* Anesthesia Preprocedure Evaluation - Vincent Wilson MD - 10/12/2024 6:56 AM EST Patient: Jair Snyder Procedure Information Date/Time: 10/12/24729 Procedures: AORTIC VALVE REPAIR, POSSIBLE REPLACEMENT (Chest) - 7:30 am, 5 hours TRICUSPID REPLACEMENT WITH RING (Chest) TRANSESOPHAGEAL ECHOCARDIOGRAM Location: [facility] OR [address] [place] [address] Operating Room Surgeons: Luciano Montemayor MD Relevant [...] Medical History: 10/19/2019: Acute renal failure (ARF) ([facility]) 12/30/2021: Anemia 10/08/2023: Calcification of abdominal [...] aortic valve stenosis 08/18/2023: Paroxysmal A-fib (CMS/HCC) ([facility]) 10/08/2023: Tobacco abuse Past Surgical History: Past Surgical History: No date: APPENDECTOMY 10/09/2024: CARDIAC CATHETERIZATION; N/A Comment: Performed by Bob Watson MD at [facility] Cardiac Cath/EP Lab 09/15/2021: FISTULAGRAM (HISTORICAL); Left Comment: LEFT UPPER ARM No date: HX AV FISTULA CREATION 08/07/2022: IR FISTULAGRAM Comment: IR FISTULAGRAM 08/07/2022 [facility] IR IMAGING No date: TONSILLECTOMY (HISTORICAL) [...] Electronically Signed On 10-10-2024 10:45:28 EST by Jajyay Garcia Signed by: Jayjay Garcia on 10/10/2024 10:45 AM Equipment Requests: Additional Equipment Requests [id number] History of Present illness Narrative* Jr Shah MD - 08/28/2024 3:15 PM EST Images from the original note were not included. [facility] - [facility], [facility] [address] [place] [address] [address] [facility] [id number] Dept: [phone] Dept Visit type: Established : 1965 Reason [...] months (around 02/26/2025) for [facility] f/u in [place]. Subjective Afib after admission 07/2023. ESRD on [...] On theother hand, a mechanical valve with joint terminal attack controller OAC carries its own risks with a [...] none/quit. Pt would like to f/u in [place]. Was concerned about location and level of [...] History: Diagnosis Date Acute renal failure (ARF) ([facility]) 10/19/2019 Anemia 12/30/2021 Calcification of abdominal aorta ([facility]) 10/08/202309/[address] abd Diverticulosis 10/08/2023 ESRD on hemodialysis ([facility]) [facility] [facility]) 10/26/2019 Hemodialysis patient ([facility] ([facility]) HTN (hypertension) 12/01/2022 Hypertension IgA nephropathy IgA nephropathy determined by biopsy of kidney 10/26/2019 Missed vaccination due to patient refusal 10/08/2023 Has a number of non-scientific based beliefs which interfere with his understanding and acceptance of the medical benefit of vaccination. Nonrheumatic aortic valve stenosis 10/08/2023 Paroxysmal A-fib ([facility]) ([facility]) 08/18/2023 Tobacco abuse 10/08/2023 Social History [...] medical care for thiscondition(s). [facility] Evaluation + Plan note* Assessment & Plan Note - Jr Shah MD - 08/28/2024 1:07 PM EST Associated Problem(s): Alcohol use disorder in remission Says he is a "functioning alcoholic". Stopping drinking in 2020. -Recommend stay quit due to addiction and risk of bleeding. [facility] [id number] Evaluation + Plan note* Assessment & Plan Note - Jr Shah MD - 08/28/2024 1:07 PM ESTAssociated Problem(s): Tobacco abuse 1 ppd. Recommend complete cessation. -Recommend CT lung cancer screening. [place] [id number] Miscellaneous Notes* Assessment & Plan Note - Jr Shah MD - 08/28/2024 1:07 PM ESTAssociated Problem(s): Alcohol use disorder in remission Says he is a "functioning alcoholic". Stopping drinking in 2020. -Recommend stay quit [...] ablation, watchman device, etc. [facility] Evaluation + Plan note* Assessment & [...] which will need to be carefully considered. [facility] [id number] Evaluation + Plan note* Assessment & Plan Note - Jr Shah MD - 08/28/2024 1:01 PM ESTAssociated Problem(s): Paroxysmal A-fib (CMS/HCC) (HCC) Paroxysmal. Infrequent [...] see EP, discuss ablation, watchman device, etc. [facility] [id number] History of Present illness Narrative* Alan Barroso RN - 05/10/2024 2:38 PM EDT Dialysis center status inquiry form received from [facility]. Form completed and faxed back to ELIA Marin at [phone]. Patient was called 04/12/2024 but voicemail was full, letter was sent to please call the office at [phone] to complete intake. Referral was closed. Please have patient call the office to complete intake. JHONY Meier RN May 10, 2024 2:41 PM [facility] Telephone encounter Note * Telephone Encounter - Lanie Luis - 04/12/2024 11:49 AM EDT I called patient to start the kidney referral intake process. Voicemail is full, sent a letter out. Lanie [facility]07-17-2024 Miscellaneous Notes* Telephone Encounter - Lanie Luis - 04/12/2024 11:49 AM EDT I called patient to start the kidney referral intake process. Voicemail is full, sent a letter out. Lanie documented in this encounterJoint [facility]05-20-2024 Telephone encounter Note * Telephone Encounter - Tracie Chin RN - 02/14/2024 10:23 AM EDT Called LM with pt with central scheduling number. Advised to call to schedule echo. [facility] [id number] Miscellaneous Notes* Telephone Encounter - Tracie Chin RN - 02/14/2024 10:23 AM EDT Called LM with pt with central scheduling number. Advised to call to schedule echo. * Telephone Encounter - Dorcas Pabon - 02/12/2024 10:28 AM EDT Unable to contact patient - called and lvm and sent [place] PUD message for echo Deferred documented in this [facility] [id number] Telephone encounter Note* Telephone Encounter - Dorcas Pabon - 02/12/2024 10:28 AM EDT Unable to contact patient - called and lvm and sent mychart message for echo Deferred [facility] [id number] Miscellaneous Notes* Telephone Encounter - Dorcas Pabon - 02/12/2024 10:28 AM EDT Unable to contact patient - called and lvm and sent mychart message for echo Deferred [facility] Telephone encounter Note* Telephone Encounter - Dorcas Pabon - 02/12/2024 10:23 AM EDT Unable to contact patient to schedule CT lung screening - called and sent mychart message Deferred [facility] [id number] Miscellaneous Notes* Telephone Encounter - Dorcas Pabon - 02/12/2024 10:23 AM EDT Unable to contact patient to schedule CT lung screening - called and sent mychart message Deferred [facility] Evaluation + Plan note* Assessment & Plan Note - DENIA Dumont CNP - 11/12/2023 4:50 PM EST Associated Problem(s): Tobacco abuse 1 ppd. Recommend complete cessation. Consider CT lung cancer screening. [place] [id number] Miscellaneous Notes* Assessment & Plan Note - [...] than just dialysis days. documented in this encounterSSelect Medical Specialty Hospital - [id number] Evaluation + Plan note* Assessment & Plan Note - DENIA Dumont CNP - 11/12/2023 4:48 PM EST Associated Problem(s): Calcification of abdominal aorta (HCC) Sep 2023, by chart review this is the only ASCVD finding. Utility of lipid- lowering agent controversial in ESRD and does not appear to be improved with moderate intensity statins. -expectant mgt [facility] [id number] Evaluation + Plan note* Assessment & Plan Note - DENIA Dumont CNP - 11/12/2023 4:48 PM ESTAssociated Problem(s): HTN (hypertension) Goal BP < 130/80 mmHg. BP today in office borderline. -continues on toprol XL -mgt per PCP and renal [place] [id number] Evaluation + Plan note* Assessment & Plan [...] cardiac intervention that he is open to. Pikimal [id number] Evaluation + Plan note* Assessment & Plan [...] dose overall, rather than just dialysis days. [employer] [id number] History of Present illness Narrative* DENIA Dumont CNP - 11/12/2023 1:30 PM EST Images from the original note were not included. [facility] [address] [place] [address] [address] [place] [address] Dept: [phone] Dept Loc: [phone] Visit type: Established : 1965 Reason for [...] is open to. 2. Paroxysmal A-fib (CMS/HCC) (HCC) Assessment & Plan: Paroxysmal. Refer to Dr. [...] the other hand, a mechanical valve with joint terminal attack controller OAC carries its own risks. Today: He [...] History: Diagnosis Date Acute renal failure (ARF) ([facility]) 10/19/2019 Anemia 12/30/2021 Calcification of abdominal aorta ([facility]) 10/08/202309/[address] abd Diverticulosis 10/08/2023 ESRD on hemodialysis ([facility]) ([facility]) 10/26/2019 Hemodialysis patient ([facility]) ([facility]) HTN (hypertension) 12/01/2022 Hypertension IgA nephropathy IgA nephropathy determined by biopsy of kidney 10/26/2019 Missed vaccination due to patient refusal 10/08/2023 Has a number of non-scientific based beliefs which interfere with his understanding and acceptance of the medical benefit of vaccination. Nonrheumatic aortic valve stenosis 10/08/2023 Paroxysmal A-fib ([facility]) ([facility]) 08/18/2023 Tobacco abuse 10/08/2023 Social History [...] PM DENIA Dumont CNP documented in this encounterSSelect Medical Specialty Hospital - [id number] Telephone encounter Note* Telephone Encounter - Sydni Rodrigues - 11/01/2023 9:41 AM EST Called pt lmom for a return call to set up appt [facility] [id number] Miscellaneous Notes* Telephone Encounter - Sydni Rodrigues [...] 10/14/2023 7:58 AM EST Preferred contact number: [phone] Reason for Visit: Jun called in to cancel his appt this morning. He woke up and is very sick. Please contact him to reschedule. Urgency of Appointment: office visit [facility]01[facility] Telephone encounter Note* Telephone Encounter - Sydni Rodrigues - 10/18/2023 2:34 PM EST Called pt LMOM for a return call to set up appt [facility] [id number] Telephone encounter Note* Telephone Encounter - Sydni Rodrigues - 10/14/2023 8:56 AM EST Called pt LMOM for a return call to r/s appt [facility] [id number] Telephone encounter Note* Telephone Encounter - Regino Ortiz - 10/14/2023 7:58 AM EST Preferred contact number: [phone] Reason for Visit: Jun called in to cancel his appt this morning. He woke up and is very sick. Please contact him to reschedule. Urgency of Appointment: office visit [place] [id number] Telephone encounter Note* Telephone Encounter - Darya Cotabritton - 08/23/2023 1:47 PM EST 2nd attempt to schedule, no answer, left message. [place] [id number] Miscellaneous Notes* Telephone Encounter - Darya Kerry - 08/23/2023 1:47 PM EST 2nd attempt to schedule, no answer, left message. * Telephone Encounter - Darya Kerry - 08/18/2023 2:13 PM EST Left message requesting a call back from the patient to schedule appointment. * Telephone Encounter - Darya Cotabritton - 08/18/2023 2:12 PM EST ----- Message from DENIA Dumont CNP sent at 08/18/2023 8:30 AM EST ----- Patient discharged from [facility]. Please assist with s/p hosp "[facility]," okay within the next ~week. Thanks! [facility] in [facility]11[facility]23 Telephone encounter Note* Telephone Encounter - Darya Cotabritton - 08/18/2023 2:13 PM EST Left message requesting a call back from the patient to schedule appointment. [place] [id number] Telephone encounter Note* Telephone Encounter - Darya Cotabritton - 08/18/2023 2:12 PM EST ----- Message from DENIA Dumont CNP sent at 08/18/2023 8:30 AM EST ----- Patient discharged from [facility]. Please assist with s/p hosp "[facility]," okay within the next ~week. Thanks! [facility] [id number] Emergency department Note* Mary Ann Meraz RN - 08/17/2023 3:11 PM EST Patient education given in regard to medications, as well as following-up with PCP. Patient given eliquis information packet, understanding well. Mary Ann Meraz RN 08/17/23 151 [facility] [id number] Emergency department Note* Mary Ann Meraz RN - 08/17/2023 3:11 PM EST Patient education given in regard to medications, as well as following-up with PCP. Patient given eliquis information packet, understanding well. Mary Ann Meraz RN 08/17/23 151 * Dangelo Horne DO - 08/16/2023 6:16 PM EST Emergency Department Encounter [facility] ED Patient: Jun Snyder : 1965 [...] 08/16/2023 6:16 PM EST Emergency Department Encounter [facility] ED Patient: Jun Snyder : 1965 [...] some recent hyperkalemia and high Phosphorus levels. [place] I was wearing a N95, Surgical mask [...] gross facial drooping. No obvious neurologic deficits. [employer]visor [employer] strength symmetrical. Moves all 4 extremities spontaneously. [...] 364 ms QTC Interval 491 ms P [place] degrees QRS [place] 61 degrees T Wave [place] -20 degrees [place] Interval ms Radiographs: XR chest 1 view Final Result 1. Cardiomegaly. 2. No other acute findings. Report Dictated on Electronically Signed By: Justo Milan MD Electronically Signed Date/Time: 08/16/2023 6:42 PM EST : EKG: All EKG's areinterpreted by the Emergency Department Physician in the absence of a ortho tech. see their note for interpretation of EKG. [...] for new onset A-fib. Patient excepted to [facility]. Final Diagnosis: 1. New onset a-fib (CMS/HCC) (HCC) Medications - No data to display Diagnoses as of 08/16/232129 New onset a-fib (CMS/HCC) (HCC) CRITICAL CARE TIME CONSULTS: None PROCEDURES: Unless otherwise noted below, none Procedures DISPOSITION/PLAN Admit 08/16/2023 08:09:48 PM PATIENT REFERRED TO: No follow-up provider specified. DISCHARGE MEDICATIONS: New Prescriptions No medications on file @[facility]([id number]:LAST:1)@ (Please note: Portions of this note were completed with a voice recognition program. Efforts were made to edit the dictations but occasionally words and phrases are mis-transcribed.) Form [id number] Sha Granados PA-C Acute [facility] Sha Granados PA-C 08/16/230 documented in [facility]11[facility]23 Hospital Discharge instructions* Discharge Instr - Other Orders* DENIA Lorenzo CNP - 08/17/2023 3:02 PM EST Please discontinue Labetalol and Caduet; see discharge medication list Next dialysis session is 08/18/23 as previously instructed * Attachments The following attachments cannot be sent through Care Everywhere. * Atrial Fibrillation (Thai) * Going Home on Blood Thinners (Thai) * Apixaban, ADULT (Thai) documented in this [facility]11[facility] History of Present illness Narrative* DENIA Lorenzo [...] Past Medical History: Diagnosis Date Hemodialysis patient ([facility]/HCC) (HCC) Hypertension IgA nephropathy LABS: CBC: Recent [...] last 72 hours. CARDIAC ENZYMES: Recent Labs 08/16/23184208/16/230 08/17/23 0058 TROPONINI 0.037* 0.062* 0.094* Procalcitonin: [...] Information Primary Emergency Contact: Alexx Snyder [address]: [address] [place] [address] [place] Relation: Nathalia Chin APRN - [employer] Division of Hospitalist Medicine Inpatient Medical Services/[facility] Comment: Please note [...] reflects time of documentation. documented in this [facility]11-21-2023 Consult note* Rj Villela MD - 08/17/2023 10:16 AM ESTAssociated Order(s): IP CONSULT TO CARDIOLOGY [facility] CARDIOLOGY CONSULTATION Patient Name: Jun Snyder : [...] left heart disease. Rj Villela M.D., F.A.C.C. Medical Radiation Dosimetrist Chief, Division of Cardiac Imaging Clinical Reproducer, MedAdherence Data Collection Cardiac Testin08/16/23 ECG 12-LEAD 08/17/2023 [...] a past medical history of Hemodialysis patient ([facility]) (HCC), Hypertension, and IgA nephropathy. He [...] alert. Psychiatric: Mood and Affect: Mood normal. [employer] Work Phone: 1(687) 628-448111-21-2023 Consult note* Rj Villela MD - 08/17/2023 10:16 AM ESTAssociated Order(s): IP CONSULT TO CARDIOLOGY [facility] CARDIOLOGY CONSULTATION Patient Name: Jun Snyder : [...] left heart disease. Rj Villela M.D., F.A.C.C. Medical Radiation Dosimetrist Chief, Division of Cardiac Imaging Clinical Reproducer, [facility] Data Collection Cardiac Testin08/16/23 ECG [...] a past medical history of Hemodialysis patient ([facility]) ([facility]), Hypertension, and IgA nephropathy. He has no [...] and Affect: Mood normal. [facility]2023 History and physical note* Earlene Irving MD - 08/16/2023 8:38 PM EST Images from the original note were not included. History and Physical [facility] Jun Snyder : 1965 AGE 57 y.o. [...] WedAug 16, 2023 8:09 PM (Active) Physician Hospitality Specialist: Sha Granados PA-C, starting on WedAug 16, [...] him When he was getting dialysis his dice table operator detected irregular rhythm suspected A-fib and [...] Past Medical History: Diagnosis Date Hemodialysis patient ([facility]) (HCC) Hypertension IgA nephropathy Past Surgical History: Procedure Laterality Date APPENDECTOMY FISTULAGRAM (HISTORICAL) Left 09/15/2021 LEFT UPPER ARM HX AV FISTULA CREATION IR FISTULAGRAM 08/07/2022 IR FISTULAGRAM 08/07/2022 [facility] IR IMAGING TONSILLECTOMY (HISTORICAL) Allergies Allergen [...] 08/16/2023 364 QTC Interval 08/16/2023 491 QRS [place] 08/16/2023 61 T Wave [place] 08/16/2023 -20 SODIUM 08/16/2023 133 (L) POTASSIUM [...] QT Interval 364 QTC Interval 491 P [place] QRS [place] 61 T Wave [place] -20 NH Interval Impression ATRIAL FIBRILLATION, V-RATE 88-139 INCOMPLETE [...] Anticoagulation yet to be determined His current [id number] score would be 1 based upon history [...] hold to due risk bleed/procedure 08/16/2023 Jun Adrianna Lillian [id number] Any scheduled follow up appointments No future appointments. Extended Emergency Contact Information Primary Emergency Contact: Alexx Snyder Address: [address] [place] [address] of [facility] Mobile Relation: Child Portions of this note may be electronically transcribed. Please forward a copy of this H&P to the primary care physician. [facility] [id number] History and physical note* Earlene Irving MD - 08/16/2023 8:38 PM EST Images from the original note were not included. History and Physical [facility] Jun Snyder : 1965 AGE 57 y.o. [...] WedAug 16, 2023 8:09 PM (Active) Physician Hospitality Specialist: Sha Granados PA-C, starting on WedAug 16, [...] him When he was getting dialysis his dice table operator detected irregular rhythm suspected A-fib and [...] Past Medical History: Diagnosis Date Hemodialysis patient ([facility]) (HCC) Hypertension IgA nephropathy Past Surgical History: Procedure Laterality Date APPENDECTOMY FISTULAGRAM (HISTORICAL) Left 09/15/2021 LEFT UPPER ARM HX AV FISTULA CREATION IR FISTULAGRAM 08/07/2022 IR FISTULAGRAM 08/07/2022 [facility] IR IMAGING TONSILLECTOMY (HISTORICAL) Allergies Allergen Reactions [...] 08/16/2023 364 QTC Interval 08/16/2023 491 QRS [place] 08/16/2023 61 T Wave [place] 08/16/2023 -20 SODIUM 08/16/2023 133 (L) POTASSIUM [...] QT Interval 364 QTC Interval 491 P [place] QRS [place] 61 T Wave [place] -20 NH Interval Impression ATRIAL FIBRILLATION, V-RATE 88-139 INCOMPLETE [...] Anticoagulation yet to be determined His current QCF5FO9-YVKg score would be 1 based upon history [...] to due risk bleed/procedure 08/16/2023 Jun Snyder [id number] Any scheduled follow up appointments No future appointments. Extended Emergency Contact Information Primary Emergency Contact: Alexx Snyder Address: [address] [place] [id number] [place] Relation: Child Portions of this note may be electronically transcribed. Please forward a copy of this H&P to the primary care physician. documented in this [facility]11[facility]2023 Physician Emergency department Note* Dangelo Horne DO - 08/16/2023 6:16 PM EST Emergency Department Encounter [facility] ED Patient: Jun Snyder : 1965 [...] freeto contact the dictating provider for clarification.) DO EDUARDA Whipple [employer] Dangelo Horne DO 08/16/231922 Dangelo Horne DO 08/16/231957 [employer] Work Phone: 1(758) 573-305611-20-2023 Physician Emergency department Note* Sha Granados PA-C - 08/16/2023 6:16 PM EST Emergency Department Encounter [facility] ED Patient: Jun Snyder : 1965 [...] gross facial drooping. No obvious neurologic deficits. [employer] strength symmetrical. Moves all 4 extremities spontaneously. [...] 364 ms QTC Interval 491 ms P [place] degrees QRS [place] 61 degrees T Wave [place] -20 degrees NH Interval ms Radiographs: XR chest 1 view Final Result 1. Cardiomegaly. 2. No other acute findings. Report Dictated on Electronically Signed By: Justo Milan MD Electronically Signed Date/Time: 08/16/2023 6:42 PM EST : EKG: All EKG's areinterpreted by the Emergency Department Physician in the absence of a ortho tech. see their note for interpretation of EKG. [...] for new onset A-fib. Patient excepted to [facility]. Final Diagnosis: 1. New onset a-fib (CMS/HCC) (HCC) Medications - No data to display Diagnoses as of 08/16/232129 New onset a-fib (CMS/HCC) (HCC) CRITICAL CARE TIME CONSULTS: None PROCEDURES: Unless otherwise noted below, none Procedures DISPOSITION/PLAN Admit 08/16/2023 08:09:48 PM PATIENT REFERRED TO: No follow-up provider specified. DISCHARGE MEDICATIONS: New Prescriptions No medications on file @[facility]([id number]:LAST:1)@ (Please note: Portions of this note were completed with a voice recognition program. Efforts were made to edit the dictations but occasionally words and phrases are mis-transcribed.) Form [id number] Sha Granados PA-C [employer] Sha Granados PA-C 08/16/232129 [facility] HealthLswrpo22-57-2333 Hospital Discharge instructions* Discharge Instructions* Jese Frank [...] petroleum jelly on it. documented [facility] this [facility]08[facility] Emergency department Note* Jese Frank MD [...] ESRD (end stage renal disease) on dialysis ([facility]) * No order type specified * [...] ESRD (end stage renal disease) on dialysis ([facility]) DISPOSITION/PLAN DISPOSITION Discharge 05/01/2023 08:15:56 PM PATIENT REFERRED TO: Daryn Loomis MD [address] [facility] [address] In 1 week [facility] [address] [place] [address] [address] [address] I prescribed: New Prescriptions EMOLLIENT [...] that bleeds occasionally. Patient was seen in [facility] a month ago for the same problem. Bed locked and low position, call light within reach. Patient has no further needs. documented in [facility]08[facility] Emergency department Triage note* Sony Dacosta RN - 05/01/2023 7:35 PM EDT Patient to ER room 6 without difficulty. Patient is a dialysis patient Wednesday and Wednesday. Patient had dialysis today . Has small sore close to dialysis site that bleeds occasionally. Patient was seen in [facility] a month ago for the same problem. Bed locked and low position, call light within reach. Patient has no further needs. [facility] [id number] Physician Emergency department Note* Jese Frank MD [...] ESRD (end stage renal disease) on dialysis ([facility]): complicated acute illness or injury Skin [...] ESRD (end stage renal disease) on dialysis ([facility]) * No order type specified * [...] ESRD (end stage renal disease) on dialysis ([facility]) DISPOSITION/PLAN DISPOSITION Discharge 05/01/2023 08:15:56 PM PATIENT REFERRED TO: Daryn Loomis MD [address] Gutierrez [facility] [address] In 1 week [facility] [address] [place] [address] [address] [address] I prescribed: New Prescriptions EMOLLIENT [...] MD (electronically signed) Jese Frank MD 05/01/232038 [facility] [id number] Miscellaneous Notes* Telephone Encounter - Karly Fortune Pss - 01/01/2022 2:36 PM EDT I scheduled him w/ Dr. reid on WednesdayFebruary 16 and left him a detailed vm that I did. This is all have at [facility] bc we are in to March and jiar needs a Wednesday or Wednesday of dialysis I am sorry, I don't have solution or advise for hospital schedule issues. Next best thing is to discuss with Naomi. May be when Dr. King or Marti come in for special cases to [facility], can this case beincluded at that time. Or if you cancel [facility] schedule and make room for me to come to [facility] any day I can get this done. Thanks! * Telephone Encounter - Karly Fortune Pss - 12/30/2021 10:36 AM EDT Antonio I had him scheduled for his colon w/ you for next WednesdayJanuary 05 but Peggy ramirez said he has to be done at [facility] bc of his hgb. I have no openings at [facility] and I don't know what to do Can you please let me know how to proceed. Thank you Eryn PS I NEED A NEW COLON ORDER FOR [facility] documented in this [facility]Joint [facility]04-[facility]-2022 Miscellaneous Notes* Telephone Encounter - Karly Fortune [facility] - 12/30/2021 9:33 AM EDT Antonio Painter saw a patient the other day and he ordered him a colon for blood loss anemia I scheduled him for [place] but his hgb is 6 so Charo wants him at [facility] . He is also on dialysisand could only do a Wednesday. All docs are booked until March You had a cancellation for next . Can I please put him w/ you? Thank you Eryn documented in this encounterJoint [facility]04-04-2022 Miscellaneous Notes* Telephone Encounter - Karly Fortune [facility] - 12/29/2021 4:18 PM EDT Antonio I know this patient saw Inocencio the other day as a new patient. I have him scheduled her and his hgb is 6 Could you please do an order for me? I have to get him on tayo Thanks Eryn [facility] History of Present illness Narrative* Rudy [...] for internal providers or letter via the [employer] for external providers. HPI: Jun [...] CKD (chronic kidney disease) Dialysis T//Sat @ [place] [facility], Home hemodialysis since 09/2019 Diverticulosis [...] 12/25/21 TIME: 3:56 PM documented in this [facility] History of Present illness Narrative* Miracle Jaramillo RN - 10/27/2019 9:00 PM EST Patient left via wheelchair with family member. Pt left with all of documented belongings. * Blane Lei RN - 10/27/2019 2:30 PM EST Patient Name: Glenn Snyder Patient : 1965 Acct: [id number] Date of Admission: 10/19/2019 [facility] Code Status: Full Code Allergies: Allergies Allergen [...] (Bicarb): 35 Na+ Modeling: Not Applicable Dialyzer: [id number] Dialysate Temperature (C): 36 Blood Flow Rate [...] - Before each treatment: Dialysis Machine No.: [id number] RO Machine No.: [id number] Dialyzer Lot No.: [id number] RO Machine Log Sheet Completed: Yes Machine Alarm Self Test: Completed;Passed (10/27/191409) Machine Autotest: Completed, Passed Air Foam Detector: Tested, Proper Function, pH Reading Extracorporeal Circuit Tested for Integrity: Yes Machine Conductivity: 13.9 Manual Conductivity: 13.7 Machine Ph: 7 Manual Ph: 7 Bleach Test (Neg): Yes Bath Temperature: 96.8 F (36 C) Tubing Lot#: [id number] Conductivity Meter Serial #: [id number] All Connections Secure?: Yes Venous Parameters Set?: [...] Pedraza MD - 10/27/2019 11:26 AM EST [facility] Progress Note SUBJECTIVE: Glenn Snyder [...] never had kidney Bx and never saw dice table operator before BLOSSOM might be from CKD [...] . Pt is likely ESRD. Pt on [facility] HD schedule. Last HD session 10/25 Next HD session today Pt has HD spot at [facility]. 2- Hyperkalemia: resolved with HD 3-high anion gap acidosis likely from CKD and BLOSSOM Resolved with HD 4- Hyperphosphatemia: Continue Phosphorus binder 5- HTN: Improved with HD. Continue same BP meds Monitor BP Ok to d/c patient from nephro stand point Will continue to follow Please call if any question at [phone] JEANA PEDRAZA MD 10/27/2019 11:26 AM * [...] Diagnosis Date Noted Acute renal failure (ARF) ([facility]) 10/19/2019 ASSESSMENT/PLAN: 1. BLOSSOM . Pt likely has CKD at baseline. No previous Cr values to compare. CKD could be from HTN induced nephrosclerosis VS GN since the patient has h/o proteinuria /hematuria since 2000 but he never had kidney Bx and never saw dice table operator before BLOSSOM might be from CKD [...] follow Please call if any question at [phone] JEANA PEDRAZA MD 10/26/2019 4:25 PM * Kimber Bajwa RN - 10/26/2019 10:46 AM EST Patient returned from US renal biopsy. VSS, see record. Bandaide is dry and intact to right flank area. Patient instructed on need for bedrest until 12:45. * Darell Sanches DO - 10/26/2019 8:19 AM EST Hospitalist Progress Note 10/26/2019 8:19 AM [phone]: Please page me ([phone]) for patient care issues. [phone]: Please page [facility] night Hospitalist for any issues. [...] lab Plan -daily weights, I&Os, dialysis per dice table operator -renal biopsy and dialysis cath pending, dice table operator following -am labs, replace lytes prn -increase activity -DVT prophylaxis: [] Lovenox [x] Heparin [] SCDs [x] Encourage ambulation [] Already on Anticoagulation Advance Directive: Full Code Discharge planning: Awaiting dialysis cath and renal biopsy. Can be discharge once outpatient dialysis arrangements have been made Darell Sanches DO Division of Hospitalist Medicine Inpatient Medical Services PAGER: [phone] * Ivett Cope RN - 10/25/2019 4:23 PM EST JAMSHID was under the impression that these were [...] and discharge needs Received a call from Alex and Ani regarding pt dialysis chair spot. Was informed [...] 5. Fluid Accumulation-No significant fluid accumulation, 6. Supervisor Industrial Garment Strength-Normal Nutrition Risk Level: High Nutrient Needs: Estimated Daily Total Kcal: 4828-9714 Estimated Daily Protein (g): 60-90 Estimated Daily Total Fluid (ml/day): per md Nutrition Diagnosis: Problem: Altered nutrition-related lab values, Predicted suboptimal energy intake, Increased nutrient needs Etiology: related to Renal dysfunction ? Signs and symptoms: as evidenced by Known losses from dialysis, Weight loss, Lab values Objective Information: Nutrition-Focused Physical Findings: appetite improved, no edema, bun 39 , creat 9.71, wbc11.8mnvsx2.3,on renvela tid- NO DRY WT EST. off [...] kg)(summer 2018) % Weight Change: , na [place] Body Wt: 166 lb (75.3 kg), % [place] Body 121 Adjusted Body Wt: , body [...] Patient/Family Education Contact Number: [phone] * Darell Sanches, - 10/25/2019 12:02 PM EST Hospitalist Progress Note 10/25/2019 5:02 PM [phone]: Please page me ([phone]) for patient care issues. [phone]: Please page [facility] night Hospitalist for any issues. [...] lab Plan -daily weights, I&Os, dialysis per dice table operator -renal biopsy and dialysis cath pending, dice table operator following -am labs, replace lytes prn -increase activity -DVT prophylaxis: [] Lovenox [x] Heparin [] SCDs [x] Encourage ambulation [] Already on Anticoagulation Advance Directive: Full Code Discharge planning: awaiting dialysis cath and renal biopsy Darell Sanches DO [facility] PAGER: [phone] * Ramon Mei RN - 10/25/2019 11:46 AM EST Patient Name: Glenn Snyder Patient : 1965 Acct: [id number] Date of Admission: 10/19/2019 Room/Bed: 156/1561 Code [...] (Bicarb): 35 Na+ Modeling: Not Applicable Dialyzer: [id number] Dialysate Temperature (C): 36 Blood Flow Rate [...] - Before each treatment: Dialysis Machine No.: [id number] RO Machine No.: [id number] Dialyzer Lot No.: [id number] RO Machine Log Sheet Completed: Yes Machine Alarm Self Test: Completed;Passed (10/25/191119) Machine Autotest: Completed, Passed Air Foam Detector: Tested, Proper Function, pH Reading Extracorporeal Circuit Tested for Integrity: Yes Machine Conductivity: 14 Manual Conductivity: 14.1 Machine Ph: 7 Manual Ph: 7 Bleach Test (Neg): Yes Bath Temperature: 96.8 F (36 C) Tubing Lot#: [id number] Conductivity Meter Serial #: [id number] All Connections Secure?: Yes Venous Parameters Set?: [...] Provider Notification Reason for Communication: Evaluate (10/25/19 929) Provider Name: Keila (10/25/19 639) Provider Notification: Physician (10/25/19 405) Method of Communication: Call (10/25/19 538) Response: No new orders (01/29/20 1245) Notification Time: 1224 (10/25/19 1245) Handoff complete and report given to Primary [...] Pedraza MD - 10/25/2019 7:58 AM EST [facility] Progress Note SUBJECTIVE: Glenn Snyder [...] never had kidney Bx and never saw dice table operator before BLOSSOM might be from CKD [...] follow Please call if any question at [phone] JEANA PEDRAZA MD 10/25/2019 7:58 AM * [...] EST Hospitalist Progress Note 10/24/2019 11:38 AM [phone]: Please page me ([phone]) for patient care issues. [phone]: Please page [facility] night Hospitalist for any issues. [...] lab Plan -daily weights, I&Os, dialysis per dice table operator -renal biopsy and dialysis cath pending, dice table operator following -am labs, replace lytes prn -increase activity -DVT prophylaxis: [] Lovenox [x] Heparin [] SCDs [x] Encourage ambulation [] Already on Anticoagulation Advance Directive: Full Code Discharge planning: ok to discharge today pending renal biopsy and dialysis cath placement Darell Sanches DO Division of Hospitalist Medicine Inpatient Medical Services PAGER: [phone] * Ivett Cope RN - 10/24/2019 10:48 AM EST Microbiology called, pt has 3x blood cultures drawn on 10/19. One came back with Gram positive rods.[employer] message sent to [facility] Dr Sanches regarding results * Jeana Pedraza MD - 10/24/2019 9:15 AM EST [facility] Progress Note SUBJECTIVE: [...] never had kidney Bx and never saw dice table operator before BLOSSOM might be from CKD [...] follow Please call if any question at [phone] JEANA PEDRAZA MD 10/24/2019 9:15 AM * Radha Foreman RN - 10/23/2019 7:21 PM EST Patient Name: Glenn Snyder Patient : 1965 Acct: [id number] Date of Admission: 10/19/2019 Room/Bed: 222/2225 Code [...] (Bicarb): 35 Na+ Modeling: Not Applicable Dialyzer: [id number] Dialysate Temperature (C): 35 Blood Flow Rate [...] ethnicity Warm;Dry Fair Soft Active;Present None 0 10/23/192201 Clear None 4 Labs Recent Labs 10/21/19 [...] - Before each treatment: Dialysis Machine No.: [id number] RO Machine No.: [id number] Dialyzer Lot No.: [id number] RO Machine Log Sheet Completed: Yes Machine Alarm Self Test: Completed;Passed (10/23/19 1710) Machine Autotest: Completed, Passed Air Foam Detector: Tested, Proper Function, pH Reading Extracorporeal Circuit Tested for Integrity: Yes Machine Conductivity: 13.7 Manual Conductivity: 13.6 Machine Ph: 7 Manual Ph: 7 Bleach Test (Neg): Yes Bath Temperature: 95 F (35 C) Tubing Lot#: [id number] Conductivity Meter Serial #: [id number] All Connections Secure?: Yes Venous Parameters Set?: [...] from secondary) Comment", Waited for RN supervisor wool shearing for 2nd water check. Access Flows and [...] stable, talking to friends/family in room Yes 10/23/19 193 Bicarb changed. Manual conductivity 13.4, pH 7.0 [...] Pt states he feels somewhat lightheaded Yes 10/23/192153 1294 ml Tx completed. Yes Vital Signs [...] 11.5 oz (91.5 kg) Bed scale 1.44 10/23/19 2243 128/68 102 10/23/194 128/68 102 Post-Dialysis Arterial Catheter Locking Solution: [...] Patel MD - 10/23/2019 4:54 PM EST [facility] Progress Note SUBJECTIVE: Glenn Snyder [...] with patient in detail. 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 Currently not working. 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 Apparently he was admitted at a hospital in [place] about 5 years ago and had cystoscopy [...] EST Hospitalist Progress Note 10/23/2019 5:02 PM [phone]: Please page me ([phone]) for patient care issues. [phone]: Please page [facility] night Hospitalist for any issues. [...] anemia Plan -daily weights, I&Os, dialysis per dice table operator -renal biopsy and temp dialysis cath pending, dice table operator to arrabge -am labs, replace lytes prn -increase activity -DVT prophylaxis: [] Lovenox [x] Heparin [] SCDs [x] Encourage ambulation [] Already on Anticoagulation Advance Directive: Full Code Discharge planning: likely discharge in next 24 hours Darell Sanches DO Division of Hospitalist Medicine Inpatient Medical Services PAGER: [phone] * Darell Sanches DO - 10/22/2019 2:17 PM EST Hospitalist Progress Note 10/22/2019 2:17 PM [phone]: Please page me ([phone]) for patient care issues. [phone]: Please page [facility] night Hospitalist for any issues. Subjective: Admit Date: 10/19/2019 PCP: No primary care provider on file. Room#: 222/2226 Interval History: No overnight issues. Denies chest [...] this interval not displayed. BMP: Recent Labs 10/20/19184610/21/19 0532 10/22/19 0430 NA 135 135 137 [...] anemia Plan -daily weights, I&Os, dialysis per dice table operator -discussed with patient and he is willing to have the renal bx done. Will notify dice table operator -am labs, replace lytes prn -increase activity -DVT prophylaxis: [] Lovenox [x] Heparin [] SCDs [x] Encourage ambulation [] Already on Anticoagulation Advance Directive: Full Code Discharge planning: likely discharge in next 1-2 days after renal biopsy Darell Sanches DO Division of Hospitalist Medicine Inpatient Medical Services PAGER: [phone] * Randolph Liz MD - 10/22/2019 12:46 PM EST [facility] [address] [place] [address] Progress Note Subjective: Patient seen [...] 5' 10" (1.778 m) Wt 196 lb 3.2 oz [...] EST Hospitalist Progress Note 10/21/2019 10:35 PM [phone]: Please page me ([phone]) for patient care issues. [phone]: Please page [facility] night Hospitalist for any issues. [...] bolus, 20 mL, Intravenous, Once, Delon Jessica, FLOWER CHENILLER - PANTS PRESSER hydrALAZINE (APRESOLINE) injection 10 mg, 10 mg, [...] of Hospitalist Medicine Inpatient Medical Services PAGER: [phone] * Randolph Liz MD - 10/21/2019 1:44 PM EST [facility] [address] [place] [address] Progress Note Subjective: Patient seen [...] Labs 10/19/19 1529 10/20/19 0408 10/20/19 0529 10/20/19184610/21/19 0532 WBC 8.3 9.0 -- -- 9.8 HGB 9.1* 6.6* 6.7* 9.0* 9.7* HCT 26.9* 19.3* 19.6* 25.2* 27.6* MCV 86.5 86.2 -- -- 84.8 PLT 246 267 -- -- 299 Recent Labs 10/19/19 0649 10/20/19 0408 10/20/19 18410/21/19 0532 NA 136 < > 136 135 [...] Name: Glenn Snyder Patient : 1965 Acct: [id number] Date of Admission: 10/19/2019 Room/Bed: [facility]/2225 Code Status: Full Code Allergies: [...] HCO3 (Bicarb): 35 Na+ Modeling: NA Dialyzer: [id number] Dialysate Temperature (C): 36 Blood Flow Rate [...] Regular Unlabored None (Room air) Expiratory wheezes [place] Dry;Warm Distended;Rounded;Soft Audible Generalized 0 10/21/19 1300 0 3 Regular Unlabored None (Room air) Clear;Diminished [place] Dry;Warm Distended;Rounded;Soft Active Generalized 0 Labs Recent Labs 10/19/19 1529 10/20/19 0408 10/20/19 0529 10/20/19 18410/21/19 0532 WBC 8.3 9.0 -- -- 9.8 HGB 9.1* 6.6* 6.7* 9.0* 9.7* HCT 26.9* 19.3* 19.6* 25.2* 27.6* PLT 246 267 -- -- 299 Recent Labs 10/20/19 0408 10/20/19184610/21/19 0532 NA 136 135 135 K 4.7 4.0 4.9 CL 95* 94* 94* CO2 BUN 123* 76* 83* CREATININE 13.53* 9.40* 11.16* GLUCOSE 102* 110* 103* IV Drips and Rate/Dose Safety - Before each treatment: Dialysis Machine No.: [id number] Machine No.: [id number] Dialyzer Lot No.: [id number] RO Machine Log Sheet Completed: Yes Machine Alarm Self Test: Completed;Passed (10/21/19939) Machine Autotest: Completed, Passed Air Foam Detector: Tested, Proper Function, pH Reading Extracorporeal Circuit Tested for Integrity: Yes Machine Conductivity: 13.7 Manual Conductivity: 13.8 Machine Ph: 7 Manual Ph: 7 Bleach Test (Neg): Yes Bath Temperature: 96.8 F (36 C) Tubing Lot#: [id number] Conductivity Meter Serial #: [id number] All Connections Secure?: Yes Venous Parameters Set?: [...] Name: Glenn Snyder Patient : 1965 Acct: [id number] Date of Admission: 10/19/2019 Room/Bed: [facility] Code Status: Full Code Allergies: No Known [...] (Bicarb): 35 Na+ Modeling: Not Applicable Dialyzer: [id number] Dialysate Temperature (C): 36 Blood Flow Rate [...] x3 Regular Unlabored None (Room air) Clear [place] Dry;Warm Good Soft Active None 0 10/20/19 [...] - Before each treatment: Dialysis Machine No.: [id number] Machine No.: [id number] Dialyzer Lot No.: [id number] RO Machine Log Sheet Completed: Yes Machine Alarm Self Test: Completed;Passed (10/20/19 152) Machine Autotest: Completed, Passed Air Foam Detector: Tested, Proper Function, pH Reading Extracorporeal Circuit Tested for Integrity: Yes Machine Conductivity: 13.6 Manual Conductivity: 13.6 Machine Ph: 7 Manual Ph: 7 Bleach Test (Neg): Yes Bath Temperature: 96.8 F (36 C) Tubing Lot#: [id number] Conductivity Meter Serial #: [id number] All Connections Secure?: Yes Venous Parameters Set?: [...] Pedraza MD - 10/20/2019 2:42 PM EST [facility] Progress Note SUBJECTIVE: Glenn Snyder [...] Diagnosis Date Noted Acute renal failure (ARF) ([facility]) 10/19/2019 ASSESSMENT/PLAN: 1. BLOSSOM . Pt likely has CKD at baseline. No previous Cr values to compare. CKD could be from HTN induced nephrosclerosis VS GN since the patient has h/o proteinuria /hematuria since 2000 but he never had kidney Bx and never saw dice table operator before BLOSSOM might be from CKD [...] follow Please call if any question at [phone] JEANA PEDRAZA MD 10/20/2019 2:43 PM * Dorcas Chin APRN - CNP - 10/20/2019 12:03 PM EST Patient transferred from ICU to IMS service * Brett Encarnacion MD - 10/20/2019 [...] []Injected [x]Non-Injected / Pinnae [x]Normal []Other/ Dentitian [][place] Teeth []Dentures Oral Mucosa [x][place] [x]Moist []Dry/ Oral ETT []Present [x]Absent Neck: [...] [x]Absent/ GUAN ([x]RUE [x]RLE [x]LUE [x]LLE) Neurologic: [place] []Yes [x]No Corneal reflexes []Present []Absent / [...] Ordering Physician MD ENCARNACION MATTHEW Accession Number [id number] CPT4 Codes 75270 () Reason For Exam line placement/vascath Report [...] Enoxaparin [] SC Heparin [] SCD * AlineEllie, RD, LD - 10/20/2019 11:00 AM EST [...] 5. Fluid Accumulation-No significant fluid accumulation, 6. Supervisor Industrial Garment Strength-Not measured Nutrition Risk Level: High Nutrient Needs: Estimated Daily Total Kcal: 5496-1587 Estimated Daily Protein (g): 60-90 Estimated Daily [...] Wt: (na) % Weight Change: , na [place] Body Wt: 166 lb (75.3 kg), % [place] Body 132 Adjusted Body Wt: , body [...] Name: Glenn Snyder Patient : 1965 Acct: [id number] Date of Admission: 10/19/2019 Room/Bed: [address] [place] [address] Code Status: No Order Allergies: No Known [...] (Bicarb): 40 Na+ Modeling: Not Applicable Dialyzer: [id number] Dialysate Temperature (C): 36 Blood Flow Rate [...] - Before each treatment: Dialysis Machine No.: [id number] RO Machine No.: [id number] Dialyzer Lot No.: [id number] RO Machine Log Sheet Completed: Yes Machine Alarm Self Test: Completed;Passed (10/19/19 1245) Machine Autotest: Completed, Passed Air Foam Detector: Proper Function, Tested, pH Reading Extracorporeal Circuit Tested for Integrity: Yes Machine Conductivity: 13.8 Manual Conductivity: 13.7 Machine Ph: 7 Manual Ph: 7 Bleach Test (Neg): Yes Bath Temperature: 96.8 F (36 C) Tubing Lot#: [id number] Conductivity Meter Serial #: [id number] All Connections Secure?: Yes Venous Parameters Set?: [...] to Education: Verbalized Understanding documented [facility] this [facility] Work Phone: [phone] Hospital course Narrative* Myron Darell, DO - [...] to presentation. Admitted to ICU, seen by dice table operator and HD initiated. Stabilized and transferred [...] Medications: Glenn Snyder Home Medication Instructions JOSE M:[id number] Printed on:10/27/19 1123 Medication Information amLODIPine (NORVASC) 5 MG tablet Take 1 tablet by mouth daily metoprolol tartrate (LOPRESSOR) 25 MG tablet Take 0.5 tablets by mouth 2 times daily sevelamer (RENVELA) 800 MG tablet Take 2 tablets by mouth 3 times daily (with meals) Recommended Follow-up: dice table operator In 3 weeks post hospital fu appt Brenton Mckeon MD [id number] [facility] [id number] In 2 weeks post hospital fu appt Readmission Risk Risk of Unplanned Readmission: 15 Complexity of Follow up: ? Moderate Complexity: follow up within 7-14 calendar days (54965) ? Severe Complexity: follow up within 7 calendar days (96433) Follow up Testing, Pending results or Referrals [...] Services 10/27/2019, 11:23 AM documented in this [facility] Work Phone: [phone] 498-242301-28-2020 Hospital Discharge instructions* Discharge Instr - Activity* [...] at most local grocery stores, pharmacies, and [employer]-stores. ? If you have any questions about your diet or nutrition, call the hospital and ask for the dietitian. * Discharge Instr - Lab* Sophia Bai RN - 10/24/2019 2:21 PM EST [facility] [phone] offer services including medical, dental, [facility], behavioral health and a reduced-rate pharmacy. Fees are based on current income and family size. Please refer to your handout for additional information and all location options. [place] [address] [place] [address] [place] [address] Wednesday 8 AM 6 PM Wednesday 8 AM 2 PM Hemodialysis will be Wednesday, Wednesday and Wednesday at [facility] located at [address] [place] [address] or [phone] Please arrive at 9:45 am * Additional [...] through Care Everywhere. * Kidney Biopsy: Post-op (Thai) [facility] Work Phone: Evaluation note* Diagnosis Acute [...] rectum and anus [facility] Diagnosis Other iron deficiency anemia- Primary Rectal bleeding Hemorrhage of rectum and anus documented in this [facility]* Diagnosis Skin sore- Primary ESRD (end stage renal disease) on dialysis (HCC) End stage renal disease [facility] Diagnosis New onset a-fib (CMS/HCC) (HCC)- Primary Atrial fibrillation New onset a-fib (CMS/HCC) (HCC) Atrial fibrillation Atrial fibrillation, persistent (HCC) [facility]* Diagnosis Nonrheumatic aortic valve stenosis- Primary Paroxysmal A-fib (CMS/HCC) (HCC) Primary hypertension Unspecified essential hypertension Calcification of abdominal aorta (HCC) Tobacco abuse Tobacco use disorder ESRD on hemodialysis (CMS/HCC) (HCC) [facility]* Diagnosis Personal history of nicotine dependence- Primary Nicotine dependence, cigarettes, uncomplicated [facility] Diagnosis Paroxysmal A-fib (CMS/HCC) (HCC)- [...] disorder in remission [facility] Diagnosis Paroxysmal A-fib (CMS/HCC) (HCC)- [...] hemodialysis (CMS/HCC) (HCC) [facility]* Diagnosis Paroxysmal A-fib (CMS/HCC) (HCC)- [...] of abdominal surgery [facility]* Diagnosis Paroxysmal A-fib (CMS/HCC) (HCC)- [...] of abdominal surgery [facility]* Diagnosis Paroxysmal A-fib (CMS/HCC) (HCC)- [...] to fungus (HCC) [facility]* Diagnosis Paroxysmal A-fib (CMS/HCC) (HCC)- Primary Nonrheumatic aortic valve stenosis Primary hypertension Unspecified essential hypertension ESRD on hemodialysis ([facility]/HCC) (HCC) Calcification of abdominal aorta (HCC) Tobacco abuse Tobacco use disorder Nonrheumatic aortic valve stenosis- Primary Paroxysmal A-fib (CMS/HCC) (HCC) Primary hypertension Unspecified essential hypertension Calcification of abdominal aorta (HCC) Tobacco abuse Tobacco use disorder ESRD on hemodialysis ([facility]/HCC) (HCC) Paroxysmal A-fib (CMS/HCC) (HCC)- Primary Nonrheumatic aortic valve stenosis Tobacco abuse Tobacco use disorder Alcohol use disorder in remission Acute respiratory failure with hypoxia (HCC)- Primary Tracheostomy dependence (HCC) Tracheostomy status RSV (acute bronchiolitis due to respiratory syncytial virus) Acute bronchiolitis due to respiratory syncytial virus (RSV) Paroxysmal A-fib (CMS/HCC) (HCC) Nonrheumatic aortic valve stenosis [facility]* Diagnosis Paroxysmal A-fib (CMS/HCC) (HCC)- [...] aortic valve stenosis [facility]* Diagnosis Paroxysmal A-fib (CMS/HCC) (HCC)- [...] with hypoxia (HCC) [J96.01]- Primary Tracheostomy dependence ([facility]) [Z93.0] Tracheostomy status LRTI (lower respiratory tract infection) [J22] Other diseases of respiratory system, not elsewhere classified [facility]* Diagnosis Paroxysmal A-fib (CMS/HCC) (HCC)- [...] sacral region, unstageable (HCC) ESRD on hemodialysis ([facility]) ([facility]) S/P AVR [facility]* Diagnosis Paroxysmal A-fib (CMS/HCC) (HCC)- Primary Nonrheumatic aortic valve stenosis Primary hypertension Unspecified essential hypertension ESRD on hemodialysis ([facility]) ([facility]) Calcification of abdominal aorta (HCC) Tobacco abuse Tobacco use disorder Nonrheumatic aortic valve stenosis- Primary Paroxysmal A-fib (CMS/HCC) ([facility]) Primary hypertension Unspecified essential hypertension Calcification of abdominal aorta (HCC) Tobacco abuse Tobacco use disorder ESRD on hemodialysis ([facility]) ([facility]) Paroxysmal A-fib ([facility]) ([facility])- Primary Nonrheumatic aortic valve stenosis Tobacco abuse Tobacco use disorder Alcohol use disorder in remission Leukocytosis, unspecified type- Primary Pneumonia of both lungs due to methicillin susceptible Staphylococcus aureus (MSSA), unspecified part of lung (HCC) Acute hypoxic respiratory failure (HCC) Decubitus ulcer of sacral region, unstageable (HCC) ESRD on hemodialysis ([facility]) ([facility]) S/P AVR [facility]* Diagnosis Paroxysmal A-fib (CMS/HCC) (HCC)- Primary Nonrheumatic aortic valve stenosis Primary hypertension Unspecified essential hypertension ESRD on hemodialysis ([facility]) ([facility]) Calcification of abdominal aorta (HCC) Tobacco abuse Tobacco use disorder Nonrheumatic aortic valve stenosis- Primary Paroxysmal A-fib (CMS/HCC) (HCC) Primary hypertension Unspecified essential hypertension Calcification of abdominal aorta (HCC) Tobacco abuse Tobacco use disorder ESRD on hemodialysis ([facility]) (HCC) Paroxysmal A-fib (CMS/HCC) (HCC)- Primary [...] osteomyelitis (CMS/HCC) (HCC) documented in this encounter [facility]Evaluation note* Diagnosis Paroxysmal A-fib [...] in remission Acute respiratory failure with hypoxia ([facility]) [J96.01]- Primary Tracheostomy care ([facility]) [Z43.0] Attention to tracheostomy Pulmonary embolism, other, unspecified chronicity, unspecified whether acute cor pulmonale present ([facility]) documented in this encounter [facility]Evaluation note* Diagnosis Paroxysmal A-fib [...] with hypoxia (HCC) [J96.01]- Primary Tracheostomy dependence ([facility]) [Z93.0] Tracheostomy status Pulmonary embolism, other, unspecified chronicity, unspecified whether acute cor pulmonale present (HCC) documented in this encounter [facility] HealthEvaluation note* Diagnosis Paroxysmal A-fib [...] Decubitus ulcer of sacral region, unstageable (HCC) 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 documented in this [...] chronicity, unspecified whether acute cor pulmonale present ([facility]) [facility] [...] to respiratory syncytial virus (RSV) Tracheostomy dependence ([facility]) Tracheostomy status Acute respiratory failure with hypoxia ([facility]) [J96.01] Leg DVT (deep venous thromboembolism), acute, left ([facility]) Pulmonary embolism, unspecified chronicity, unspecified pulmonary embolism type, unspecified whether acute cor pulmonale present ([facility]) S/P AVR documented in [facility]* Diagnosis Paroxysmal A-fib (CMS/HCC) (HCC)- Primary Nonrheumatic aortic valve stenosis Primary hypertension Unspecified essential hypertension ESRD on hemodialysis ([facility]/HCC) (HCC) Calcification of abdominal aorta (HCC) Tobacco abuse Tobacco use disorder Nonrheumatic aortic valve stenosis- Primary Paroxysmal A-fib (CMS/HCC) (HCC) Primary hypertension Unspecified essential hypertension Calcification of abdominal aorta (HCC) Tobacco abuse Tobacco use disorder ESRD on hemodialysis (CMS/HCC) (HCC) Paroxysmal A-fib (CMS/HCC) (HCC)- Primary Nonrheumatic aortic valve stenosis Tobacco abuse Tobacco use disorder Alcohol use disorder in remission Tracheostomy dependence ([facility])- Primary Tracheostomy status ESRD on hemodialysis [...] (MSSA), unspecified part of lung (HCC) Acute respiratory failure with hypoxia ([facility]) [J96.01] Nonrheumatic aortic valve stenosis Pulmonary embolism, unspecified chronicity, unspecified pulmonary embolism type, unspecified whether acute cor pulmonale present ([facility]) documented [facility] [...] Tracheostomy status ESRD on hemodialysis (CMS/HCC) (HCC) care home (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 Decubitus ulcer of [...] in remission Acute respiratory failure with hypoxia ([facility]) [J96.01]- Primary RSV (acute bronchiolitis due [...] Decubitus ulcer of sacral region, unstageable (HCC) care home (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 [facility] in [facility] noteNo assessment information availableWUC Health Work Phone: Evaluation note* Diagnosis Paroxysmal A-fib [...] use disorder Alcohol use disorder in remission SOB (shortness of breath)- Primary Shortness of breath SOB (shortness of breath) Shortness of breath 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, 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) Moderate malnutrition (CMS/HCC) (HCC) documented in this encounter [facility] [...] acute cor pulmonale present (HCC) S/P AVR ESRD on hemodialysis (CMS/HCC) (HCC) documented in [...] in remission Acute respiratory failure with hypoxia ([facility])- Primary Ventilator dependent ([facility]) Dependence on respirator, status Tracheostomy dependence ([facility]) Tracheostomy status Pulmonary embolism, other, unspecified chronicity, unspecified whether acute cor pulmonale present ([facility]) S/P AVR ESRD on hemodialysis ([facility]) ([facility]) documented in this encounter [facility] Discharge instructions* Instructions* Fabiola Huitron RN - [...] or dog food bags, or a vacuum machine heddle cleaner. Your dressing will be removed at [...] call and ask for the Interventional Radiologist on air personality. Where can you learn more? Go to [email or web address] and sign in to your [employer] account. Enter P616 in the Search Health Information box to learn more about Hemodialysis Access: What to Expect at Home. If you do not have an account, please click on the "Sign Up Now" link. Current as of: August 12, 2016 Content Version: [id number] [employer]. Care instructions adapted under license by [employer]. If youhave questions about a medical condition or this instruction, always ask your healthcare professional. [employer] disclaims any warranty or liability for your use of this information. [facility] Work Phone: [facility] (n[facility]ative)* Outpatient Procedure (Routine) - Authorized Specialty Diagnoses / Procedures Referred By Contac t Referred To Contact [facility] [place] Diagnoses Acute blood loss anemia Rectal bleeding Procedures COLONOSCOPY DIAGNOSTIC COLONOSCOPY FLX DX W/COLLJ SPEC WHEN Rudy Buitrago MD [address] [place] [address] [address] [place] [address] Referral ID Status Reason Start Date Expiration Date Visits Requested Visits Authorized [id number] Authorized Auto-Generat ed Referral 12/25/2021 12/25/2022 1 1 [facility] for referral (narrative)* Outpatient Procedure (Routine) - Authorized Specialty Diagnoses / Procedures Referred By Contac t Referred To Contact [facility] [place] Diagnoses Other iron deficiency anemia Rectal bleeding Procedures COLONOSCOPY DIAGNOSTIC COLONOSCOPY FLX DX W/COLLJ SPEC WHEN Rudy Buitrago MD [address] [facility] [place] [address] [place] [address] Referral ID Status Reason Start Date Expiration Date Visits Requested Visits Authorized [id number] Authorized Auto-Generat ed Referral 12/30/2021 12/30/2022 1 1 [facility] for referral (narrative)* Consultation (Routine) - Pending Review Specialty Diagnoses / Procedures Referred By Contac t Referred To Contact Wound Care Diagnoses Skin sore Procedures [facility] OFFICE/OUTPATIENT [facility] MDM 60-74 MINUTES Jese Frank MD [address] [place] [address] [facility] Op Wnd Ostomy [facility] [address] [place] [address] Referral ID Status Reason Start Date Expiration Date Visits Requested Visits Authorized [id number] Pending Review Specialty Services Required 05/01/2023 04/30/2024 1 1 [facility] for referral (narrative)No reason for referral information availableWUC Health Work Phone: Reason for visit Narrative* Auth/Cert (Routine) Specialty Diagnoses / Procedures Referred By Contac t Referred To Contact Diagnoses Atrial flutter, unspecified type (HCC) Procedures . aRmón Romano MD [address] [place] [address] Phone: tel: fax: [facility] [address] [place] [address] Phone: tel: Referral ID Status Reason Start Date Expiration Date Visits Re quested Visits Authorized [id number] 1 1 [facility] Health Assessments Diagnosis Chronic kidney [...] Documents on File Type Date Recorded Patient Hand Candle Dipper Expl anation Advance Directive(s) 11/22/2020 11:20 AM Advance Directive(s) 06/12/2020 8:15 AM Advance Directive(s) 03/20/2020 7:16 AM Documents on File Type Date Recorded Patient Hand Candle Dipper Expl anation Advance Directive(s) 11/22/2020 11:20 AM Advance Directive(s) 06/12/2020 8:15 AM Advance Directive(s) 03/20/2020 7:16 AM Documents on File Type Date Recorded Patient Hand Candle Dipper Expl anation Power of Rugby League Footballer 02/14/2023 1:37 PM Advance Directives and Livin g Will 02/14/2023 1:37 PM Documents on File Type Date Recorded Patient Hand Candle Dipper Expl anation Power of Rugby League Footballer 02/14/2023 1:37 PM Advance Directives and Livin [...] Documents on File Type Date Recorded Patient Hand Candle Dipper Expl anation Advance Directives and Livin g Will 10/03/2024 11:27 AM Power of Rugby League Footballer 02/14/2023 1:37 PM Advance Directives and Livin g Will 02/14/2023 1:37 PM Date Activated Date Inactivated Comments 10/03/2024 6:19 PM Date Activated Date Inactivated Comments 08/17/2023 12:04 AM 08/17/2023 5:18 PM Documents on File Type Date Recorded Patient Hand Candle Dipper Expl anation Advance Directives and Livin g Will 10/03/2024 11:27 AM Power of Rugby League Footballer 02/14/2023 1:37 PM Advance Directives and Livin [...] Documents on File Type Date Recorded Patient Hand Candle Dipper Expl anation Power of Rugby League Footballer 01/24/2025 12:29 PM Advance Directives and Livin g Will 10/03/2024 11:27 AM Power of Rugby League Footballer 02/14/2023 1:37 PM Advance Directives and Livin [...] Mcneil [facility] Alternate Health Care Agent Documents on File Type Date Recorded Patient Hand Candle Dipper Expl anation Power of Rugby League Footballer 01/24/2025 12:29 PM Advance Directives and Livin g Will 10/03/2024 11:27 AM Power of Rugby League Footballer 02/14/2023 1:37 PM Advance Directives and Livin [...] Omar Lillian Child Health Care Agent Toma Reddwell [employer] Alternate Health Care Agent Healthcare Agents on File Name Relationship Healthcare Agent Relationshi p Communication Omar Lillian Child Health Care Agent Toma Reddwell [employer] Alternate Health Care Agent Date [...] Omar Lillian Child Health Care Agent Toma Reddwell [employer] Alternate Health Care Agent Date [...] Omar Lillian Child Health Care Agent Toma Reddwell [facility] [employer] Alternate Health Care Agent Healthcare Agents on File Name Relationship Healthcare Agent Relationshi p Communication Omar Lillian Child Health Care Agent Toma Reddwell [employer] Alternate Health Care Agent Date Activated Date Inactivated Comments 02/21/2025 12:23 AM 03/05/2025 6:36 PM Healthcare Agents on File Name Relationship Healthcare Agent Relationshi p Communication Moar Lillian Child Health Care Agent Toma Tarun [employer] Alternate Health Care Agent Date Activated Date Inactivated Comments 02/21/2025 12:23 AM 03/05/2025 6:36 PM Healthcare Agents on File Name Relationship Healthcare Agent Relationshi p Communication Omar Lillian Child Health Care Agent Toma Mcneil [facility] Alternate Health Care Agent Healthcare Agents on File Name Relationship Healthcare Agent Relationshi p Communication Omar Lillian Child Health Care [facility] Documents on File Type Date Recorded Patient Hand Candle Dipper Expl anation Power of Rugby League Footballer 01/24/2025 12:29 PM Omar Lillian Advance Directives and Livin g Will 10/03/2024 11:27 AM Power of Rugby League Footballer 02/14/2023 1:37 PM Advance Directives and Livin g Will 02/14/2023 1:37 PM Date Activated Date Inactivated Comments 03/13/2025 5:46 PM 03/21/2025 7:36 PM Date Activated Date Inactivated Comments 02/21/2025 12:23 AM 03/05/2025 6:36 PM Date Activated Date Inactivated Comments 01/19/2025 6:18 AM 02/01/2025 6:04 PM Date Activated Date Inactivated Comments 11/09/2024 2:04 PM 11/28/2024 5:28 PM Question Answer Comments ICU transfer: Yes Intubation: Yes patient currentl y intubated Date Activated Date Inactivated Comments 10/03/2024 6:19 PM 11/09/2024 2:04 PM Healthcare Agents on File Name Relationship Healthcare Agent Relationshi p Communication Omar Lillian Child Health Care Agent [facility] Care Agent Healthcare Agents on File Name Relationship Healthcare Agent Relationshi p Communication Omar Lillian Child Health Care Agent [facility] Health Care Agent Summary Purpose Family [...] CT lung screening low dose Fransisco Pineda, FLOWER CHENILLER [address] [place] [address] Referral ID Status Reason Start Date Expiration Date V isits Requested Visits Authorized [id number] Authorized 09/07/2023 09/06/2024 1 1 Chief Complaint and Reason for Visit Chief Complaint Admit Date LABWORK February 05, 2025 5:56a m Chief Complaint Admit Date LABWORK February 05, 2025 5:56a m LABOWRK February 07, 2025 5:00a m SKILLED NURSING LAB WORK February 15, 2025 5:0 0am SKILLED NURSING LAB WORK February 20, 2025 4:0 0am Chief Complaint Admit Date LABWORK February 05, 2025 5:56a m LABOWRK February 07, 2025 5:00a m Chief Complaint Admit Date LABWORK February 05, 2025 5:56a m LABOWRK February 07, 2025 5:00a m SKILLED NURSING LAB WORK February 08, 2025 5:0 0am SKILLED NURSING LAB WORK February 12, 2025 5:0 0am SKILLED NURSING LAB WORK February 13, 2025 5:0 0am SKILLED NURSING LAB WORK February 15, 2025 5:0 0am SKILLED NURSING LAB WORK February 20, 2025 4:0 0am Additional Source Comments Source Comments (unrecognize d section and content) In the event this informatio n is protected by the Federal Confidentiality of Alcohol and Drug Abuse Patient Records regulations: The Federal rules restrict any use of the information to criminally investigate or prosecute any alcohol or drug abuse patient.[facility] the event this information is protected by the Federal Confidentiality of Alcohol and Drug Abuse Patient Records regulations: The Federal rules restrict any use of the information to criminally investigate or prosecute any alcohol or drug abuse patient.[facility] the event this information is protected by the Federal Confidentiality of Alcohol and Drug Abuse Patient Records regulations: The Federal rules restrict any use of the information to criminally investigate or prosecute any alcohol or drug abuse patient.[facility] the event this information is protected by the Federal Confidentiality of Alcohol and Drug Abuse Patient Records regulations: The Federal rules restrict any use of the information to criminally investigate or prosecute any alcohol or drug abuse patient.[facility] the event this information is protected by the Federal Confidentiality of Alcohol and Drug Abuse Patient Records regulations: The Federal rules restrict any use of the information to criminally investigate or prosecute any alcohol or drug abuse patient.[facility] the event this information is protected by the Federal Confidentiality of Alcohol and Drug Abuse Patient Records regulations: The Federal rules restrict any use of the information to criminally investigate or prosecute any alcohol or drug abuse patient.[facility] the event this information is protected by the Federal Confidentiality of Alcohol and Drug Abuse Patient Records regulations: The Federal rules restrict any use of the information to criminally investigate or prosecute any alcohol or drug abuse patient.[facility] the event this information is protected by the Federal Confidentiality of Alcohol and Drug Abuse Patient Records regulations: The Federal rules restrict any use of the information to criminally investigate or prosecute any alcohol or drug abuse patient.[facility] (unrecognized sect ion and content) No Status Records FoundNo Status Records FoundNo Status Records FoundNo Status Records FoundNo Status Records FoundNo Status Records Found INFORMATION SOURCE (unrecogn ized section and content) DATE CREATED AUTHOR 11/26/2020 [facility] DATE CREATED AUTHOR AUTHOR'S ORGANIZ ATION 09/18/2021 [facility] DATE CREATED AUTHOR AUTHOR'S ORGANIZ ATION 12/18/2022 [facility] DATE CREATED AUTHOR AUTHOR'S ORGANIZ ATION 04/16/2024 [facility] DATE CREATED AUTHOR AUTHOR'S ORGANIZ ATION 03/24/2025 [facility] DATE CREATED AUTHOR AUTHOR'S ORGANIZ ATION 03/25/2025 [facility] Continuous Active and Recently Administ ered Medications (unrecognized section and content) Medication Order 09/13/2021 09/14/2021 09/15/2021 0.9 % sodium chloride infusion IntraVENous, at 50 mL/hr, CONTINUOUS, Starting on Wed09/15/21 at 0945, Pre-op (day of surgery) 0955 (New Bag - Prov ider: Marjorie Menjivar, RN) PRN Medication Order 09/13/2021 09/14/2021 09/15/2021 [...] close to perameter.) PRN Medication Order 08/15/2023 08/16/202308/17/2023 acetaminophen (Tylenol) suppository 650 mg(Linked Group 1) [...] sodium chloride 0.9 % 100 mL IVPB (Add-Cushing) 3,000 mg, IntraVENous, at 200 mL/hr, Administer over 30 Minutes, Every 24 hours, First dose on Brigid 01/25/25 at 1700, ADD-Cushing bag, Suspected Indication (Select all that apply): Bone and Joint Infection 183 (New Bag - Provider: Miriam Reza, SWEETIE)2012 (Stopped - Provider: Casandra Roes RN) 1645 (New Bag - Provider: Angella Ley, SWEETIE)1715 (Due: Stopped - Provider: Angella Ley RN) 1700 (Canceled Entry - Provider: Automatic Discharge Provider - Comment: Automatically canceled at discontinue of medication order) ampicillin-sulbactam (Unasyn) 3,000 mg in sodium chloride 0.9 % 100 mL IVPB (Add-Cushing) (CANCELED) 3,000 mg, IntraVENous, at 200 mL/hr, Administer over 30 Minutes, Every 24 hours, First dose on Wed02/01/25 at 1030, For 13 days, ADD-Cushing bag, Suspected Indication (Select all that apply): Skin and Soft Tissue Infection 1051 (New Bag - Provider: Kristine Donato, SWEETIE)1136 (Stopped - Provider: Kristine Donato, RN) chlorhexidine (Hibiclens) 4 % solution Topical, [...] Reza RN)2023 (Given - Provider: Casandra Rose, RN) 1529 (Not Given - Provider: Angella Ley, SWEETIE - Reason: Other - Comment: dialysis)2041 (Given - Provider: Leilani Jaimes RN) 0815 (Given - Provider: Kristine Donato, SWEETIE) midodrine (Proamatine) tablet 10 mg 10 mg, Oral, 2 times daily, First dose on Wed01/26/25 at 2100 1038 (Given - Provider: Miriam Reza RN)2023 (Given - Provider: Casandra Rose, SWEETIE) 152 [...] mL/hr, IntraVENous, Continuous, Starting on Wed01/23/25 at 2437 8028 (New Bag - Provider: Miriam Reza RN) [...] Jun Borrero MD) lidocaine-EPINEPHrine (Xylocaine W/EPI) 1 %-[id number] injection (COMPLETED) As needed, Starting on Wed01/30/25 [...] pupils, Starting on Wed01/19/25 at 0614, +++notify on air personality provider if used+++ oxyCODONE (Roxicodone) immediate release [...] 1312 1038 (See Alternative - Provider: Miriam Reza, SWEETIE) prochlorperazine (Compazine) injection 5 mg 5 mg, [...] cabinet override 1121 (Given - Provider: Ailyn Hutchison, SWEETIE) Linked Groups Order Group 1: oxyCODONE (Roxicodone) [...] at 0900 0825 (Given - Provider: Shasta Sinclair, RN) 0832 (Given - Provider: Ochoa Johnson, RN) 0913 (Given - Provider: yTson Freeman, SWEETIE) dextrose 50 % solution 50 mL (COMPLETED) 50 mL, IntraVENous, Once, On Wed03/05/25 at 0500, For 1 dose 0542 (Given - Provider: Rosio Bey, SWEETIE) insulin regular (HumuLIN R,NovoLIN R) injection 10 Units (COMPLETED) 10 Units, IntraVENous, Once, On Wed03/05/25 at 0530, For 1 dose 0542 (Given - Provider: Rosio Bey, SWEETIE) metoprolol tartrate (Lopressor) tablet 25 mg 25 [...] Shasta Sinclair, RN)1819 (Stopped - Provider: Shasta Sinclair, RN)2120 (New Bag - Provider: Rudolph Najera RN) 0018 (Stopped - Provider: Rudolph Najera RN)0158 (New Bag - Provider: Rudolph Najera RN)0441 (Stopped - Provider: Rudolph Najera RN)0831 (New Bag - Provider: Ochoa Johnson RN)1141 (Stopped - Provider: Liv Grimaldo RN)1611 (New Bag - Provider: Liv Grimaldo, SWEETIE)2115 (Stopped - Provider: Rosio Bey RN)2125 (New Bag - Provider: Rosio Bey RN) 0025 (Stopped - Provider: Rosio Bey, SWEETIE)0438 (New Bag - Provider: Rosio Bey, SWEETIE)0739 [...] Patient/family refused) 0832 (Given - Provider: Ochoa Johnson, SWEETIE)1301 (Not Given - Provider: Liv Grimaldo RN - Reason: Patient/family refused)1612 (Not Given - Provider: Liv Grimaldo RN - Reason: Patient/family refused) 0913 (Given - Provider: Tyson Freeman, SWETEIE)1305 (Not Given - Provider: Tyson Freeman RN [...] Arnold RN) 0833 (Given - Provider: Ochoa Johnson, SWEETIE) 0913 (Given - Provider: Tyson Freeman, SWEETIE) warfarin (Coumadin) tablet 6 mg (COMPLETED) 6 mg, Oral, Once Warfarin, On 03/03/25 at 1700, For 1 dose 1659 (Given - Provider: Shasta Sinclair RN) warfarin (Coumadin) tablet 7.5 mg (COMPLETED) 7.5 mg, Oral, Once Warfarin, On Wed03/04/25 at 1700, For 1 dose 1612 (Given [...] Arnold RN)1501 (Rate/Dose Verify - Provider: Shasta Sinclair RN)1914 (Handoff - Provider: Shasta Sinclair RN) 0203 (Rate/Dose Verify - Provider: Rudolph Naejra RN)0204 (New Bag - Provider: Rudolph Najera RN)0727 (Handoff - Provider: Ochoa Johnson, SWEETIE)1032 (Handoff - Provider: Ochoa Johnson, RN)1920 (Handoff - Provider: Susanna Jackson RN) 0222 (New Bag - Provider: Rosio Bey, SWEETIE)0433 (Rate/Dose Change - Provider: Rosio Bey RN)0719 [...] sedation for opioid reversal - MUST notify on air personality provider immediately after first dose, may give [...] no further options ordered. Scheduled Medication Order 03/19/2025 03/20/2025 03/21/2025 Lidocaine 4 % patch 1 patch 1 patch, Topical, Administer over 12 Hours, Daily, First dose on Wed03/13/25 at 1745, Apply patch to low back. Patch may remain in place for up to 12 hours in any 24 hour period. 0903 (Not Given - Provider: Whitney Dobbins RN - Reason: Patient/family refused) 0843 (Not Given - Provider: Whitney Dobbins RN - Reason: Patient/family refused) 0843 (Not Given - Provider: Christopher Chen RN - Reason: Patient/family refused) metoprolol tartrate (Lopressor) tablet 50 mg 50 mg, Oral, 2 times daily, First dose (after last modification) on Wed03/17/25 at 2100 1011 (Given - Provider: Whitney Dobbins, SWEETIE)2101 (Given - Provider: Rosio Bey RN) 0936 (Given - Provider: Whitney Dobbins RN)2122 (Given - Provider: Mir Cannon RN) 0843 (Given - Provider: Christopher Chen RN) pantoprazole (ProtoNix) EC tablet 40 mg 40 mg, Oral, 2 times daily before meals, First dose on Wed03/13/25 at 1745, Do not crush, chew, or split. 0619 (Not Given - Provider: Bashir Lind RN - Reason: Patient/family refused)1639 (Not Given - Provider: Whitney Dobbins RN - Reason: Patient/family refused) 0602 (Not Given - Provider: Rosio Bey RN - Reason: Patient/family refused)1516 (Not Given - Provider: Whitney Dobbins RN - Reason: Patient/family refused) 0627 (Not Given - Provider: Mir Cannon RN - Reason: Patient/family refused)1527 (Not Given - Provider: Christopher Chen RN - Reason: Patient/family refused) sevelamer carbonate (Renvela) tablet 800 mg 800 mg, Oral, 3 times daily with meals, First dose on Wed03/13/25 at 1745, Do not crush, chew, or split. 0903 (Not Given - Provider: Whitney Dobbins RN - Reason: Patient/family refused)1155 (Not Given - Provider: Whitney Dobbins RN - Reason: Patient/family refused)1639 (Not Given - Provider: Whitney Dobbins RN - Reason: Patient/family refused) 0722 (Not Given - Provider: Whitney Dobbins RN - Reason: Patient/family refused)1137 (Not Given - Provider: Whitney Dobbins RN - Reason: Patient/family refused)1643 (Not Given - Provider: hWitney Dobbins RN - Reason: Patient/family refused) 0843 (Not Given - Provider: Christopher Chen RN - Reason: Patient/family refused)1101 (Not Given - Provider: Christopher Chen RN - Reason: Patient/family refused)1649 (Not Given - Provider: Christopher Chen RN - Reason: Patient/family refused) sodium zirconium cyclosilicate (Lokelma) packet 5 g 5 g, Oral, Daily, First dose on Wed03/13/25 at 1745, Empty entire contents of packet(s) into 45 mL water. Stir well and administer immediately. If powder remains, rinse glass with water and administer. Administer other meds at least 2 hours before or after dose to prevent decreases in their absorption. 1231 (Not Given - Provider: Whitney Dobbins RN - Reason: Other - Comment: provider notified of potassium lab level and would like dose to be held this afternoon.) 1102 (Not Given - Provider: Whitney Dobbins RN - Reason: Patient/family refused) 1005 (Not Given - Provider: Christopher Chen RN - Reason: Patient/family refused) warfarin (Coumadin) tablet 4 mg 4 mg, Oral, Once Warfarin, On Wed03/21/25 at 1700, For 1 dose 1732 (Not Given - Provider: Christopher Chen RN - Reason: Patient/family refused) warfarin (Coumadin) tablet 7.5 mg (COMPLETED) 7.5 mg, Oral, Once Warfarin, On Wed03/19/25 at 1700, For 1 dose 1639 (Given - Provider: Whitney Dobbins RN) warfarin (Coumadin) tablet 7.5 mg (COMPLETED) 7.5 mg, Oral, Once Warfarin, On Wed03/20/25 at 1700, For 1 dose 1643 (Given - Provider: Whitney Dobbins RN) Continuous Medication Order 03/19/2025 03/20/2025 03/21/2025 heparin 25,000 units in dextrose 5% 250mL infusion (premix) (CANCELED) 5-30 Units/kg/hr 64.4 kg (3.22-19.32 mL/hr, rounded to 3.2-19.3 mL/hr), IntraVENous, Continuous, Starting on 03/17/25 at 1100, HIGH Dose Heparin Weight Based Dosing (VTE/DVT/PE) [...] medication is held outside of ordered parameters 0618 (New Bag - Provider: Bashir Lind RN)0725 (Handoff - Provider: Whitney Dobbins RN)0912 (Rate/Dose Verify - Provider: Whitney Dobbins RN - Comment: aptt 46.4 no change at this time)1640 (Rate/Dose Verify - Provider: Whitney Dobbins RN)1932 (Handoff - Provider: Rosio Bey RN)2335 (Rate/Dose Verify - Provider: Rosio Bey RN) 0115 (Rate/Dose Verify - Provider: Rosio Bey RN)0609 (Rate/Dose Verify - Provider: Rosio Bey RN)0629 (New Bag - Provider: Rosio Bey RN)0717 (Handoff - Provider: Whitney Dobbins RN)1038 (Rate/Dose Verify - Provider: Whitney Dobbins RN)1328 (Rate/Dose Verify - Provider: Whitney Dobbins RN - Comment: aptt 61.5 no change needed at this time)1643 (Rate/Dose Verify - Provider: Whitney Dobbins RN)1827 (Rate/Dose Verify - Provider: Whitney Dobbins RN - Comment: aptt 68.9 no change at this time. continue at 20u/kg/hr)1917 (Handoff - Provider: Whitney Dobbins RN) 0616 (New Bag - Provider: Mir Cannon RN)0707 (Handoff - Provider: Mir Cannon RN)0737 (Rate/Dose Verify - Provider: Christopher Chen RN)0948 (Stopped - Provider: Christopher Chen RN - Comment: [Order ends at this time. Document the following action when infusion is complete: Stopped]) PRN Medication Order 03/19/2025 03/20/2025 03/21/2025 acetaminophen (Tylenol) suppository 650 mg(Linked Group 1) 650 mg, Rectal, Every 6 hours PRN, fever, For temp greater than 100.4 F (38 C), Starting on Wed03/13/25 at 1742, Administer if oral route cannot be used. Maximum dose of acetaminophen is 4000 mg from all sources in 24 hours. acetaminophen (Tylenol) tablet 650 mg(Linked Group 1) 650 mg, Oral, Every 6 hours PRN, mild pain (1-3), fever, For temp greater than 100.4 F (38 C), Starting on Wed03/13/25 at 1742, Maximum dose of acetaminophen is 4000 mg from all sources in 24 hours. heparin injection 2,576 Units (CANCELED) 2,576 Units (40 Units/kg 64.4 kg), IntraVENous, As needed, heparin dosing algorithm, Starting on Wed03/17/25 at 1049, Half dose re-bolus based on pharmacy algorithm 0629 (Given - Provider: Rosio Bey RN) ipratropium-albuterol (Duo-Neb) 0.5-2.5 mg/3 mL nebulizer solution 3 mL 3 mL, Nebulization, Every 8 hours PRN, shortness of breath, Starting on Wed03/13/25 at 1740 melatonin tablet 3 mg 3 mg, Oral, Nightly PRN, sleep, Starting on Wed03/13/25 at 1740 ondansetron (Zofran) injection 4 mg(Linked Group 2) 4 mg, IntraVENous, Every 6 hours PRN, nausea, vomiting, Starting on Wed03/13/25 at 1742, Administer if oral route cannot be used. ondansetron ODT (Zofran-ODT) disintegrating tablet 4 mg(Linked Group 2) 4 mg, Oral, Every 8 hours PRN, nausea, vomiting, Starting on Wed03/13/25 at 1742, Patient should allow tablet to dissolve on tongue. Do not remove from blister pack until just before administering. polyethylene glycol (PEG) 3350 (Miralax) packet 17 g 17 g, Oral, Daily PRN, constipation, Starting on Wed03/13/25 at 1742, 1st line for treatment of constipation - give scheduled if no bowel movement in past 24 hours. Linked Groups Order Group 1: acetaminophen (Tylenol) tablet 650 mgJump to med 650 mg, Oral, Every 6 hours PRN, mild pain (1-3), fever, For temp greater than 100.4 F (38 C), Starting on Wed03/13/25 at 1742, Maximum dose of acetaminophen is 4000 mg from all sources in 24 hours. Or acetaminophen (Tylenol) suppository 650 mgJump to med 650 mg, Rectal, Every 6 hours PRN, fever, For temp greater than 100.4 F (38 C), Starting on Wed03/13/25 at 1742, Administer if oral route cannot be used. Maximum dose of acetaminophen is 4000 mg from all sources in 24 hours. Group 2: ondansetron ODT (Zofran-ODT) disintegrating tablet 4 mgJump to med 4 mg, Oral, Every 8 hours PRN, nausea, vomiting, Starting on Wed03/13/25 at 1742, Patient should allow tablet to dissolve on tongue. Do not remove from blister pack until just before administering. Or ondansetron (Zofran) injection 4 mgJump to med 4 mg, IntraVENous, Every 6 hours PRN, nausea, vomiting, Starting on Wed03/13/25 at 1742, Administer if oral route cannot be used. Care Teams (unrecognized sec tion and content) Director Of Infection Prevention Relationship Specialty Start Date End Date Daryn Loomis MD [address] [place] [phone] PCP - General Family Medicine 12/18/20 Director Of Infection Prevention Relationship Specialty Start Date End Date Candido Starr MD [address] [address] Nephrology 02/22/20 Director Of Infection Prevention Relationship Specialty Start Date End Date Candido Starr MD [address] [address] Nephrology 02/22/20 Director Of Infection Prevention Relationship Specialty Start Date End Date Candido Starr MD [address] [address] Nephrology 02/22/20 Director Of Infection Prevention Relationship Specialty Start Date End Date Daryn Loomis MD [address] [place] [phone] PCP - General 12/18/20 Director Of Infection Prevention Relationship Specialty Start Date End Date Daryn Loomis MD [facility] [place] [address] PCP - General 12/18/20 Director Of Infection Prevention Relationship Specialty Start Date End Date Daryn Loomis MD [facility] [address] [facility] [place] [address] PCP - General 12/18/20 Director Of Infection Prevention Relationship Specialty Start Date End Date Daryn Loomis MD [facility] [address] PCP - General 12/18/20 Director Of Infection Prevention Relationship Specialty Start Date End Date Daryn Loomis MD [facility] [address] [facility] [place] [address] PCP - General 12/18/20 Director Of Infection Prevention Relationship Specialty Start Date End Date Daryn Loomis MD [facility] [address] [facility] [place] [address] PCP - General 12/18/20 Director Of Infection Prevention Relationship Specialty Start Date End Date Daryn Loomis MD [facility] [address] PCP - General 12/18/20 Director Of Infection Prevention Relationship Specialty Start Date End Date Daryn Loomis MD [facility] [address] PCP - General 12/18/20 Director Of Infection Prevention Relationship Specialty Start Date End Date Candido Starr MD [address] [place] [address] Nephrology 02/22/20 Director Of Infection Prevention Relationship Specialty Start Date End Date Candido Starr MD [address] [place] [address] Nephrology 02/22/20 Director Of Infection Prevention Relationship Specialty Start Date End Date Daryn Loomis MD [facility] [place] [address] PCP - General 12/18/20 Director Of Infection Prevention Relationship Specialty Start Date End Date Leilani Troncoso [address] [place] [address] PCP - General Family Medicine 10/03/24 Director Of Infection Prevention Relationship Specialty Start Date End Date Leilani Troncoso [address] [place] [phone] PCP - General Family Medicine 10/03/24 Director Of Infection Prevention Relationship Specialty Start Date End Date Leilani Troncoso [address] [place] [address] PCP - General Family Medicine 10/03/24 Director Of Infection Prevention Relationship Specialty Start Date End Date Leilani Troncoso [address] [place] [address] PCP - General Family Medicine 10/03/24 Director Of Infection Prevention Relationship Specialty Start Date End Date Leilani Troncoso [address] [place] [phone] PCP - General Family Medicine 10/03/24 Director Of Infection Prevention Relationship Specialty Start Date End Date Leilani Troncoso [address] [place] [phone] PCP - General Family Medicine 10/03/24 Director Of Infection Prevention Relationship Specialty Start Date End Date Leilani Troncoso [address] [place] [address] PCP - General Family Medicine 10/03/24 Director Of Infection Prevention Relationship Specialty Start Date End Date AbaLeilani ramos [address], [phone] PCP - General Family Medicine 10/03/24 Director Of Infection Prevention Relationship Specialty Start Date End Date Leilani Troncoso [address] [place] [phone] PCP - General Family Medicine 10/03/24 Director Of Infection Prevention Relationship Specialty Start Date End Date Leilani Troncoso [address] [place] [phone] PCP - General Family Medicine 10/03/24 Director Of Infection Prevention Relationship Specialty Start Date End Date Leilani Troncoso [address] [place] [phone] PCP - General Family Medicine 10/03/24 Director Of Infection Prevention Relationship Specialty Start Date End Date Leilani Troncoso [address] [place] [phone] PCP - General Family Medicine 10/03/24 Director Of Infection Prevention Relationship Specialty Start Date End Date Leilani Troncoso [address] [place] [phone] PCP - General Family Medicine 10/03/24 Director Of Infection Prevention Relationship Specialty Start Date End Date Leilani Troncoso [address] [place], [phone] PCP - General Family Medicine 10/03/24 Director Of Infection Prevention Relationship Specialty Start Date End Date Leilani Troncoso [address], [phone] PCP - General Family Medicine 10/03/24 Director Of Infection Prevention Relationship Specialty Start Date End Date Leilani Troncoso [address], [phone] PCP - General Family Medicine 10/03/24 Director Of Infection Prevention Relationship Specialty Start Date End Date Leilani Troncoso [address], [phone] PCP - General Family Medicine 10/03/24 Director Of Infection Prevention Relationship Specialty Start Date End Date Leilani Troncoso [address] [place] [phone] PCP - General Family Medicine 10/03/24 Director Of Infection Prevention Relationship Specialty Start Date End Date Leilani Troncoso [address], [phone] PCP - General Family Medicine 10/03/24 Director Of Infection Prevention Relationship Specialty Start Date End Date Leilani Troncoso [address] [place] [phone] PCP - General Family Medicine 10/03/24 Director Of Infection Prevention Relationship Specialty Start Date End Date Leilani Troncoso [address] [place] [phone] PCP - General Family Medicine 10/03/24 Director Of Infection Prevention Relationship Specialty Start Date End Date Leilani Troncoso [address] [place] [phone] PCP - General Family Medicine 10/03/24 Director Of Infection Prevention Relationship Specialty Start Date End Date Leilani Troncoso [address], [phone] PCP - General Family Medicine 10/03/24 Director Of Infection Prevention Relationship Specialty Start Date End Date Le[place] [phone] PCP - General Family Medicine 10/03/24 Director Of Infection Prevention Relationship Specialty Start Date End Date Le[place] [phone] PCP - General Family Medicine 10/03/24 Director Of Infection Prevention Relationship Specialty Start Date End Date [place] [phone] PCP - General Family Medicine 10/03/24 Team [...] Attending Provider Active Start: February 20, 2025 Director Of Infection Prevention Relationship Specialty Start Date End Date AbaLeilani gore [address] [place] [phone] PCP - General Family Medicine 10/03/24 Director Of Infection Prevention Relationship Specialty Start Date End Date AbaLeilani ramos [address] [place] [phone] PCP - General Family Medicine 10/03/24 Director Of Infection Prevention Relationship Specialty Start Date End Date AbaLeilani ramos [address] [place] [phone] PCP - General Family Medicine 10/03/24 Director Of Infection Prevention Relationship Specialty Start Date End Date AbaLeilani ramos [address] [place] [phone] PCP - General Family Medicine 10/03/24 Director Of Infection Prevention Relationship Specialty Start Date End Date Aba, Leilani [address] [place] [phone] PCP - General Family Medicine 10/03/24 Director Of Infection Prevention Relationship Specialty Start Date End Date Leilani Troncoso [address] [place] [phone] PCP - General Family Medicine 10/03/24 Team [...] February 20, 2025 End: February 20, 2025 Director Of Infection Prevention Relationship Specialty Start Date End Date Leilani Troncoso [address] [place] [phone] PCP - General Family Medicine 10/03/24 Team Status: Inactive Member Role/Relationship Status Dates Kayley ALBA MD Attending Provider Active Start: February 05, 2025 End: February 05, 2025 Team Status: Inactive Member Role/Relationship Status Dates Jayesh ALBA Attending Provider Active Sta rt: February 07, 2025 End: February 07, 2025 Team Status: Inactive Member Role/Relationship Status Dates Kayley ALBA MD Attending Provider Active Start: February 08, 2025 End: February 08, 2025 Team Status: Active Member Role/Relationship Status Diane ALBA MD Attending Provider Active Start: February 12, 2025 Team Status: Active Member Role/Relationship Status Diane ALBA MD Attending Provider Active Start: February 13, 2025 Team Status: Inactive Member Role/Relationship Status Diane ALBA MD Attending Provider Active Start: February 15, 2025 End: February 15, 2025 Team Status: Inactive Member Role/Relationship Status Diane ALBA MD Attending Provider Active Start: February 20, 2025 End: February 20, 2025 Kayley ALBA MD Referring Provider Active Start: February 20, 2025 End: February 20, 2025 Team Status: Active Member Role/Relationship Status Diane ALBA MD Attending Provider Active Start: March 08, 2025 Team Status: Active Member Role/Relationship Status Diane ALBA Attending Provider Active Sta rt: March 09, 2025 Team Status: Active Member Role/Relationship Status Diane ALBA Attending Provider Active Sta rt: March 12, 2025 Team Status: Active Member Role/Relationship Status Diane ALBA MD Attending Provider Active Start: March 22, 2025 Team Status: Inactive Member Role/Relationship Status Diane ALBA MD Attending Provider Active Start: February 12, 2025 End: February 12, 2025 Reason for Visit (unrecogniz ed section [...] To Contact Diagnoses New onset a-fib (CMS/HCC) ([facility]) Procedures . Earlene Irving MD [address] [place] [address] [facility] Emergency Dept [address] [place] [address] Referral ID Status Reason Start Date Expiration Date Visits Re quested Visits Authorized [id number] 1 1 Reason Onset Date Comments Cancelled [...] To Contact Diagnoses Complication of tracheostomy (CMS/HCC) ([facility]) Procedures . Bruce Nguyen MD [address] [place] [address] Phone: tel: fax: [facility] Medical Intensive Care Unit MICU T[address] [place] [phone] Phone: tel: Referral ID Status Reason Start Date Expiration Date Visits Re quested Visits Authorized [id number] 1 1 Reason Onset Date Comments Anticoagulation [...] was bright red and it stopped 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 Specialty Diagnoses / Procedures Referred By Contac t Referred To Contact Diagnoses Hemoptysis Procedures . Bettye Pierre MD [address] [place] [address] Phone: tel: fax: [facility] Trauma Neuro Progressive Care Unit PCU [address] [place] [address] Phone: tel: Referral ID Status Reason Start Date Expiration Date Visits Re quested Visits Authorized [id number] 1 1 Reason Onset Date Comments Appointment 02/23/2025 Reason Comments Shortness of Breath Pt arrived from [facility] via EMS. Pt was starting dialysis and feeling short of breath dialysis was stopped and sent to the hospital to be evaluated. Specialty Diagnoses / Procedures Referred By Contac t Referred To Contact Diagnoses SOB (shortness of breath) Procedures 0 Rubi Sanon MD [address] [place] [address] Phone: tel: fax: [facility] Cardiac Progressive Care Unit PCU [address] [place] [address] Phone: tel: Referral ID Status Reason Start Date Expiration Date Visits Re quested Visits Authorized [id number] 1 1 Goals (unrecognized section and content) [...] BE BASED ON THE PRIMARY CLINICAL RECORDS. [employer] provides no warranty or guarantee of the accuracy or completeness of information in this document.
[2025-03-26 09:01] LABS: Absolute Lymphocyte Count 1.15 X10^3/uL (0.83-4.51); Absolute Neutrophil Count 5.1 X10^3/uL (2.0-7.7); Basophil# 0.09 X10^3/uL; Basophil% 1.2 % (0-1); Eosinophil# 0.21 X10^3/uL; Eosinophils% 2.8 % (0-5); Hematocrit 31.5 % (40-54); Hemoglobin 9.5 g/dL (13.0-16.5); Lymphocyte # 1.15 X10^3/ul (0.83-4.51); Lymphocyte % 15.1 % (19-41); Mean Corp Hgb Conc 30.2 g/dL (32-36); Mean Corpuscular Hgb 30.4 pg (27.0-32.0); Mean Platelet Vol. 9.3 fl (6.2-12.0); Monocyte# 1.06 X10^3/uL; Monocyte% 13.9 % (0-10); NRBC Flagged by Analyzer 0 % (0-5); Neutrophil # 5.08 X10^3/uL (2.7-7.7); Neutrophil % 66.7 % (47-70); POSITIVE MORPHOLOGY YES; Platelet Count 266 K/mm3 (150-450); RBC Distribution Width CV 18.6 % (11.6-14.6); RBC Distribution Width SD 69.8 fl (35.1-43.9); Red Blood Count 3.12 M/mm3 (4.6-6.2); White Blood Count 7.6 K/mm3 (4.4-11.0)
[2025-03-26 09:09] LABS: International Normalized Ratio 3.3; Prothrombin Time (Protime)PT. 34.4 SECONDS (11.7-14.9)
[2025-03-26 09:12] LABS: Differential Indicated SCAN CRITERIA MET
[2025-03-26 09:37] LABS: ALB/GLOB Ratio 0.8 RATIO (0.9-2.4); AST(SGOT) 53 U/L (<=37); Alanine Aminotransfer ALT/SGPT 21 U/L (<=46); Albumin, Serum 3.2 g/dL (3.5-5.0); Alkaline Phosphatase 238 U/L (40-129); Anion Gap 14 (5-15); BUN 36 mg/dL (4-19); BUN/Creat Ratio 6.9 RATIO (10-20); Calcium,Total 9.6 mg/dL (7.6-11.0); Carbon Dioxide 22.8 mmol/L (21.0-32.0); Chloride 102 mmol/L (98-108); Creatinine, Serum 5.21 mg/dL (0.70-1.20); EST Glomerular Filtration Rate 12 (>60); Globulin 4.1 g/dL (2.2-4.2); Glucose 87 mg/dL (70-99); Potassium 4.9 mmol/L (3.3-5.1); Protein, Total 7.2 g/dL (5.9-8.4); Sodium Level 139 mmol/L (133-145); Total Bilirubin 0.58 mg/dL (0.00-1.30)
[2025-03-26 10:30] LABS: Anisocytosis 1+
== END ==
LOC: OLS.SANC 05:00
PROVIDERS: Visit Provider Internal Medicine
DX: Z79.01 Long term (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 anticoagulants (principal)
CPT/HCPCS: 36415; 80053; 85025; 85610

== ENCOUNTER → 2025-03-29 | Outpatient (REF) | payer MEDICARE, SELFPAY ==
[2025-03-29 09:00] LABS: Prothrombin Time (Protime)PT. 35.4 SECONDS (11.7-14.9)
== END ==
LOC: OLS.SANC 04:00
DX: Z79.01 Long term (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 anticoagulants (principal)
CPT/HCPCS: 36415; 85610

== ENCOUNTER → 2025-04-02 | Outpatient (REF) | payer MEDICARE, SELFPAY ==
[2025-04-02 09:13] LABS: Hematocrit 32.8 % (40-54); Hemoglobin 10.1 g/dL (13.0-16.5); Immature Granulocytes Count 0.030 X10^3/uL (0.0-0.0); Mean Corp Hgb Conc 30.8 g/dL (32-36); Mean Corpuscular Volume 97.6 fL (80-94); Mean Platelet Vol. 9.4 fl (6.2-12.0); NRBC Flagged by Analyzer 0 % (0-5); Platelet Count 383 K/mm3 (150-450); RBC Distribution Width CV 16.3 % (11.6-14.6); RBC Distribution Width SD 58.6 fl (35.1-43.9); Red Blood Count 3.36 M/mm3 (4.6-6.2); White Blood Count 6.3 K/mm3 (4.4-11.0)
[2025-04-02 09:23] LABS: Prothrombin Time (Protime)PT. 23.9 SECONDS (11.7-14.9)
[2025-04-02 09:32] LABS: AST(SGOT) 46 U/L (<=37); Alanine Aminotransfer ALT/SGPT 20 U/L (<=46); Albumin, Serum 3.2 g/dL (3.5-5.0); Alkaline Phosphatase 229 U/L (40-129); Anion Gap 12 (5-15); BUN 42 mg/dL (4-19); BUN/Creat Ratio 8.2 RATIO (10-20); Calcium,Total 9.9 mg/dL (7.6-11.0); Carbon Dioxide 25.9 mmol/L (21.0-32.0); Chloride 98 mmol/L (98-108); Globulin 4.2 g/dL (2.2-4.2); Glucose 84 mg/dL (70-99); Potassium 5.6 mmol/L (3.3-5.1)
== END ==
LOC: OLS.SANC 04:00
DX: I48.91 Unspecified atrial fibrillation (principal); I10 Essential (primary) hypertension; D64.9 Anemia, unspecified; E43 Unspecified severe protein-calorie malnutrition; Z79.01 Long term (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 anticoagulants
CPT/HCPCS: 36415; 80053; 85025; 85610

== ENCOUNTER → 2025-04-05 | Outpatient (REF) | payer MEDICARE, SELFPAY ==
[2025-04-05 09:21] LABS: INR Fingerstick 2.7
== END ==
LOC: OLS.SANC 05:00
DX: Z79.01 Long term (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 anticoagulants (principal)
CPT/HCPCS: 36416; 85610

== ENCOUNTER → 2025-04-09 | Outpatient (REF) | payer MEDICARE, SELFPAY ==
--- OUTSIDE RECORDS SUMMARY | 2025-04-09 04:33 | XMS RPT_ITS | CCD ---
Author Organization [facility] CliniSyil Care Team Providers Care Currency Counter Name Role Phone Candido Starr Unavailable Unavailable Primary Care Provider Unavailrickey Loomis MD, Daryn Cali Primary Care Provider Unavailable Primary Care Provider UnavailCandido Hardy MD Unavailable Daryn Loomis MD Primary Care Provider Candido Starr MD Unavailable [facility] Primary Care Provider [facility] Primary Care Provider Kayley Melendrez MD Attending Provider Unava ilable Jayesh Nguyen Attending Provider Unavailab Kayley Cm MD Referring Provider Unava ilable RUBI SANON Admitting Unavailable [facility] Primary Care Unavailable ANU CASTRO Attending Unavailable TERRELL, WELLINGTON Consulting Unavailable [facility] Primary Care Unavailable TERRELL, WELLINGTON Consulting Unavailable ANTHONY HURTADO Attending Unavailable BETTYE PIERRE Admitting Unavailable MONTEMAYORLUCIANO Admitting Unavailable MONTEMAYORLUCIANO Attending Unavailable [facility] Primary Care Unavailable CINDY PATEL R Consulting UnavailELDON Barcenas Consulting Unavailable TIFFANIE VILLEGAS Consulting Unavailable DARYN SANTACRUZ Consulting Unavailable CALI ARREDONDO Consulting Unavailable [facility] Primary Care Unavailable BARB DAWKINS Attending Unavailable QUIANA JEFFERY Admitting Unavailable JUNE CHAPARRO Consulting Unavailable [facility] Primary Care Unavailable MIKALA DAY Referring Unavailable MIKALA DAY Attending Unavailable JESE FRANK Referring Unavailable [facility] Primary Care Unavailable MIKALA DAY Attending Unavailable [facility] Primary Care Unavailable JR SHAH Attending Unavailable LOOMIS DARYN Primary Care Unavailable MONTEMAYOR, LUCIANO [facility] Unavailable MONTEMAYOR, LUCIANO Referring Unavailable [facility] Primary Care Unavailable OSIRIS TERRELL Attending Unavailable [facility] Primary Care Unavailable FRANK, JESE Referring Unavailable [facility] Primary Care Unavailable Mukkamalla OLS, Mahaveer Attending Unavail able Mukkamalla OLS, Mahaveer Attending Unavail able [place] OLS, Mahaveer Referring Unavail able [place]alla OLS, Lexisaveer Attending Unavail able [place] OLS, Navarroer Attending Unavail able K[place] OLS, Jayesh Attending Unavailable [place] OLS, Jayesh Attending Unavailable [place] OLS, Jayesh Referring Unavailable [place] OLS, Navarroer Attending Unavail able [place] OLS, Jayesh Attending Unavailable [place]alla OLS, Navarroer Attending Unavail able Mukkamalla OLS, Navarroer Attending Unavail able K[place]aros OLS, Jayesh Attending Unavailable [place]alla OLS, Lexisaveer Attending Unavail able Mukkamalla OLS, Navarroer Attending Unavail able [place]alla OLS, Mahaveer Attending Unavail able Mukkamalla OLS, Mahaveer Attending Unavail able Allergies Allergy Classification Reported Allergen(s) Allergy Type Date of Onset Reaction(s) Facility (11 sources) Lisinopril Drug Allergy 0 Swelling [facility] Work Phone: (20 sources) Lisinopril Allergy to substance 2 Swelling, Angioedema [facility] Medications Current Medications Medication Drug Class(es) [...] 2 tablets by mo uth once daily. Ampicillin-Sulbactam Sodium (UNASYN IV) (1 [...] daily for 10 days. 11/28/2024 12/08/2024 Active melatonin 3 mg oral tablet (20 sources) Start: 02-21-2025 End: 03-21-2025 take 1 tablet by mouth [...] taking at discharge) Start: 11-28-2024 End: 03-05-2025 5 ml metoprolol tartrate 1 mg/ml injection (20 sources) beta-Adrenergic Mono Start: 04-05-2025 5 mg, IntraVENous, Once, On Wed04/05/25 at 1040, For 1 dose Start: 03-17-2025 End: 03-21-2025 take 50 mg by mouth twice daily 50 mg, Oral, 2 times daily, First dose (after last modification) on Wed03/17/25 at 2100 Start: 03-15-2025 End: 03-17-2025 take [...] End: 02-01-2025 Start: 11-28-2024 End: 03-01-2026 take 1 tablet by mouth twice daily metoprolol tartrate (Lopressor) 25 MG tablet Take 1 tablet (25 mg) by mouth 2 times daily. 60 tablet 11 03/01/2025 03/01/2026 Active Start: 11-28-2024 End: 11-28-2025 metoprolol tartrate (Lopress [...] (LOPRESSOR) split-tablet 12.5 mg (1 source) Start: 0 metoprolol tartrate (LOPRESSOR) split-tablet 12.5 mg pantoprazole 40 mg delayed release oral tablet (20 sources) Proton Pump Inhibitor Start: 5 End: 6 take 1 tablet by mouth twice daily [...] 1 mg/ml topical lotion (5 sources) Start: 3 End: 3 pramoxine-zinc acetate (CALADryl) 1-0.1 % lotion Apply topically 2 times daily as needed for itching or irritation. 177 mL 0 05/01/2023 Active sevelamer carbonate 800 mg oral tablet (20 sources) Phosphate Binder Start: 5 End: 6 take 1 tablet by mouth three times daily at mealtime sevelamer carbonate (Renvela) 800 MG tablet Indications: ESRD on hemodialysis (CMS/HCC) ([facility]) Take 1 tablet (800 mg) by [...] with meals. Take 3 tablets by mo [facility] three times daily with meals. sodium chloride flush 0.9 % injection 3 mL (1 source) Start: sodium chloride flush 0.9 % injection 3 mL sodium zirconium cyclosilicate 5000 mg powder for oral suspension (13 sources) Start: 025 End: take 5 g by mouth once [...] tablet (20 sources) Vitamin K Antagonist Start: 7.5 mg, Oral, Once Warfarin, On Wed03/20/25 [...] tablet 650 mg 20 ml albumin human, alf 250 mg/ml injection (1 source) Human Serum [...] HD on HD days) until 03/10/25 02/28/2025 03/21/2025 Discontinued (Stop taking at discharge) ampicillin-sulbacta m (Unasyn) 3,000 mg in sodium chloride 0.9 % 100 mL IVPB (Add-Lee) (2 sources) Start: 02-01-2025 End: 02-01-2025 anidulafungin [...] / vitamin b12 0.006 mg oral tablet (11 sources) Vitamin B12, Vitamin C End: 03-21-2025 take 1 tablet by mouth once daily B complex-vitamin C-folic acid (Nephro-Nato Rx) 1 MG tablet Take 1 tablet by mouth daily. 03/21/2025 Discontinued (Stop taking at discharge) asenapine 5 mg sublingual tablet (2 sources) Atypical Antipsychotic Start: 01-22-2025 End: 01-22-2025 Start: 01-22-2025 End: 01-22-2025 B Xahxhke-J-Ecprs Acid (NEPHRO-NATO) 0.8 MG TABS (1 source) Start: 10-14-2020 take 1 tablet by mouth once daily B Dkxznoi-D-Wqcqq Acid (NEPHRO-NATO) 0.8 MG TABS TAKE 1 [...] at 1024, Anesthesia Intraprocedure epoetin rowan-epbx (Retacrit) 34080 UNIT/ML injection (20 sources) Start: 12-04-2024 End: 02-21-2025 inject 0.79 mL by subcutaneous injection every week epoetin rowan-epbx (Retacrit) 84375 UNIT/ML injection Indications: ESRD on Dialysis Inject 0.79 mL (7,900 Units) under the skin 1 (one) time per week. 12/04/2024 02/21/2025 Discontinued (Discontinued by another clinician) Start: 12-04-2024 inject 0.79 mL by bangura bcutaneous injection every week epoetin rowan-epbx (Retacrit) 14491 UNIT/ML injection Indications: ESRD on Dialysis Inject [...] mg magnesium hydroxide 160 mg/ml oral suspension (11 sources) End: 03-21-2025 take 30 mL by mouth every twenty-four hours as needed for constipation magnesium hydroxide (Milk of Magnesia) 800 MG/5ML suspension Take 30 mL by mouth Daily as needed for constipation (if no bm in 3 days). 03/21/2025 Discontinued (Stop taking at discharge) take 30 mL by mouth every twenty -four hours as needed for constipation Methoxy PEG-Epoetin Beta (MIRCERA IJ) (1 source) [...] naloxone in sodium chloride (PF) injection injection (9 sources) End: 03-21-2025 naloxone in sodium chloride [...] at 1024, Anesthesia Intraprocedure polyethylene glycol 3350 58582 mg powder for oral solution (6 sources) [...] sodium chloride 5860 mg / sodium sulfate 72492 mg powder for oral solution (6 sources) [...] End: 03-18-2025 40 mEq, Oral, Once, On Wed03/18/25 at 1345, For 1 dose, Best given [...] 1105, Anesthesia Intraprocedure 25 ml protamine sulfate (alf) 10 mg/ml injection (1 source) Start: 10-12-2024 End: 10-12-2024 IntraVENous, As needed, Starting on Brigid 10/12/24 at 1019, Anesthesia Intraprocedure QUEtiapine 25 mg oral tablet (20 sources) Atypical Antipsychotic Start: 11-28-2024 End: 03-31-2025 QUEtiapine (SEROquel) 25 MG tablet 1 tablet (25 mg) by Per G Tube route Nightly. 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] Onset: 01-12-2025 01-12-2025 Episodic Other aftercare (1 source) 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; Translations: [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] Onset: 01-12-2025 Episodic Other aftercare (2 sources) nursing home (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 anticoagulants; Translations: [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 teacher (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 anticoagulants] Onset: 03-24-2025 Episodic Other aftercare (1 source) Other termite treater (current) drug therapy; Translations: [Other termite treater (current) drug therapy] Onset: 02-28-2025 Episodic Other [...] lung] 02-22-2025 Episodic Other lower respiratory disease (20 sources) Dyspnea; Translations: [Shortness of breath] Onset: [...] [Atherosclerosis of aorta] Onset: 10-08-2023 10-08-2023 Chronic Pulmonary heart disease (20 sources) Pulmonary embolism; [...] susceptible Staphylococcus aureus] Onset: 10-03-2024 01-01-2025 Episodic Residual codes; unclassified (20 sources) Tobacco [...] Test Name Value Interpretation Reference Range Facility Basic metabolic 1998 panelon 04-05-2025 Anion gap [Moles/Vol] 10 mmol/L 3 - 13 mmol/L [facility] Calcium [Mass/Vol] 9 mg/dL 8.4 - 10. 2 mg/dL [facility] Chloride [Moles/Vol] 101 mmol/L 98 - 10 7 mmol/L [facility] CO2 [Moles/Vol] 29 mmol/L 22 - 29 mmol/L [facility] Creatinine [Mass/Vol] 3.52 mg/dL High 0.72 - 1.25 mg/dL [facility] GFR/1.73 sq M.predicted (S/P/Bld) [Vol rate/Area] 19.1 mL/min Low - PINF [facility] Comment on above: Calculation based on the Chronic Kidney Disease Epidemiology Collaboration (CKD-EPI) equation refit without adjustment for race Glucose [Mass/Vol] 94 mg/dL 74 - 100 mg/dL [facility] Interpretation and review of laboratory results Abnormal [facility] Potassium [Moles/Vol] 5.5 mmol/L High 3.5 - 5.1 mmol/L [facility] Comment on above: Plasma potassium macey ues may be up to 0.5 mmol/L lower than serum values. Sodium [Moles/Vol] 140 mmol/L 136 - 145 mmol/L [facility] Urea nitrogen [Mass/Vol] 34 mg/dL High 9 - 23 mg/d L [facility] CBC W Auto Differential pane l (Bld)Ordered By: Yifan Howard on 04-05-2025 Basophils (Bld) [#/Vol] 0.1 10*3/uL 0.0 - 0.2 10*3/uL [facility] Basophils/100 WBC (Bld) 1.5 % 0.0 - 2.0 % [facility] Eosinophils (Bld) [#/Vol] 0.2 10*3/uL 0.0 - 0.5 10*3/uL [facility] Eosinophils/100 WBC (Bld) 3.5 % 0.0 - 6.0 % [facility] Erythrocyte distribution width (RBC) [Ratio] 16 % High 11.5 - 15.0 % [facility] Hematocrit (Bld) [Volume fraction] 30.1 % Low 40.0 - 52.0 % [facility] Hemoglobin (Bld) [Mass/Vol] 9.3 g/dL Low 13.0 - 18.0 g/dL [facility] Immature granulocytes (Bld) [#/Vol] 0 10*3/uL NINF - 0.1 10*3/uL [facility] Immature granulocytes/100 WBC (Bld) 0.4 % 0.0 - 2.0 % [facility] Interpretation and review of laboratory results Abnormal [facility] Lymphocytes (Bld) [#/Vol] 1.1 10*3/uL 1.0 - 4.3 10*3/uL [facility] Lymphocytes/100 WBC (Bld) 15.4 % 15.0 - 45.0 % [facility] MCH (RBC) [Entitic mass] 29.5 pg 26. 0 - 34.0 pg [facility] MCHC (RBC) [Mass/Vol] 30.9 % 30.5 - 36.0 % [facility] MCV (RBC) [Entitic vol] 95.6 fL 77.0 - 99.0 fL [facility] Monocytes (Bld) [#/Vol] 0.9 10*3/uL 0.0 - 0.9 10*3/uL [facility] Monocytes/100 WBC (Bld) 13.2 % High 5.0 - 13.0 % [facility] Neutrophils (Bld) [#/Vol] 4.5 10*3/uL 1.8 - 7.5 10*3/uL [facility] Neutrophils/100 WBC (Bld) 66 % 38.0 - 82.0 % [facility] Nucleated RBC/100 WBC (Bld) [Ratio] 0 % [facility] Platelet mean volume (Bld) [Entitic vol] 8.8 fL Low 9.0 - 12.7 fL [facility] Platelets (Bld) [#/Vol] 329 10*3/uL 140 - 440 10*3/uL [facility] RBC (Bld) [#/Vol] 3.15 10*6/uL Low 4.40 - 5.9 0 10*6/uL [facility] WBC (Bld) [#/Vol] 6.8 10*3/uL 3.6 - 10.7 10*3/uL [facility] - Coagulationon 0 04-05-2025 PT Coag (Bld) [Time] 26.3 s High 9.0 - 12.0 s [facility] No Panel Informationon 04-05 2h Troponin HS (Serial 2nd Troponin) 29 ng/L NINF - 35 ng/L [facility] Comment on above: Rising or falling tr oponin delta between 2 15 ng/L as compared to baseline value requires a 3rd serial troponin Interpretation and review of laboratory results Normal [facility] Interpretation and review of laboratory results Abnormal [facility] Troponin HS Serial Baseline 36 ng/L High NINF - 35 ng/L [facility] Comment on above: In individuals prese nting with symptoms > 2h, a baseline troponin <= 5 ng/L suggests acute cardiac injury is unlikely and further serial testing is generally not indicated. [facility] P [place] 0 degrees [facility] MS Interval 0 ms [facility] QRS [place] 101 degrees [facility] QRSD Interval 102 ms [facility]val 361 ms [facility] QTC Interval 510 ms [facility] T Wave [place] 0 degrees [facility] Atrial flutter with varied AV block, Right axis deviation Repol abnrm, severe global ischemia (LM/MVD) Prolonged QT interval Electronically Signed On 04-05-2025 10:13:24 EDT by Stephan Villegas CV Stephan Iyer MD - 04/05/2025 IMPRESSION: Atrial flutter with varied AV block, Right axis deviation Repol abnrm, severe global ischemia (LM/MVD) Prolonged QT interval Electronically Signed On 04-05-2025 10:13:24 EDT by Stephan Villegas [facility] PT Coag (Bld) [Time]on 04-05 INR Coag (PPP) [Relative time] 2.6 {INR} High 0.9 - 1.1 [facility] Comment on above: Recommended Anticoag ulant Therapy: [...] Interpretation and review of laboratory results Abnormal [facility] Vital signson 04-05-2025 Heart rate 120 /min bpm [facility] XR Chest 2 Viewson Cardiomegaly with median sternotomy. Question small pleural effusions with mild blunting of the posterior costophrenic angles. Pleural effusions present on prior chest CT from February 2025 Coarsening of interstitium may be inflammatory/infecti ous or secondary to pulmonary edema. There was a component of acute interstitial/airspac e disease on the prior CT. Report Dictated on Electronically Signed By: Devonte Bocanegra MD Electronically Signed Date/Time: 04/05/2025 11:36 AM EDT [facility] Patient Name: JUN SNYDER : 1965 Exam Date/Time: 04/05/2025 10:17 Procedure: XR CHEST 2 VIEWS Ordering Provider: MCKEON BRIANNA Reason For Exam: tachycardia EXAMINATION: PA/Lateral chest INDICATION: tachycardia FINDINGS: Comparison: 03/13/2025 There is no focal consolidation, sizable pleural effusion or pneumothorax. There is coarsening of interstitium of the lungs. Mild elevation of right hemidiaphragm is present. Cardiomegaly with median sternotomy changes and cardiac valve repair. Small osteophytes of the spine are present at multiple levels. [facility] Devonte Bocanegra MD - 04/05/2025 Patient Name: JUN SNYDER : 1965 Exam Date/Time: 04/05/2025 10:17 Procedure: XR CHEST 2 VIEWS Ordering Provider: MCKEON BRIANNA Reason For Exam: tachycardia EXAMINATION: PA/Lateral chest INDICATION: tachycardia FINDINGS: Comparison: 03/13/2025 There is no focal consolidation, sizable pleural effusion or pneumothorax. There is coarsening of interstitium of the lungs. Mild elevation of right hemidiaphragm is present. Cardiomegaly with median sternotomy changes and cardiac valve repair. Small osteophytes of the spine are present at multiple levels. IMPRESSION: Cardiomegaly with median sternotomy. Question small pleural effusions with mild blunting of the posterior costophrenic angles. Pleural effusions present on prior chest CT from February 2025 Coarsening of interstitium may be inflammatory/infecti ous or secondary to pulmonary edema. There was a component of acute interstitial/airspac e disease on the prior CT. Report Dictated on Electronically Signed By: Devonte Bocanegra MD Electronically Signed Date/Time: 04/05/2025 11:36 AM EDT [facility] Radiology Study observation (narrative) [facility] alth XR Chest 2 ViewsOrdered By: Devonte Bocanegra on 04-05-2025 [facility] Work Phone: CBC W/Diff, Automatedon Absolute Lymph 0.83 X10 3/uL Normal 0.83-4.51 [facility] Comment on above: Order Comment: 412.2 Performed By: #### L 500.4050, L300.3900, L100.0100 #### [facility] [address] [place], [address] Absolute Neut 4.2 X10 3/uL Normal 2.0-7.7 [facility] Comment on above: Order Comment: 412.2 Performed By: #### L 500.4050, L300.3900, L100.0100 #### [facility] [address] [place], [address] Basophils/100 WBC (Bld) 1.9 % High 0-1 [facility] Comment on above: Order Comment: 412.2 Performed By: #### L 500.4050, L300.3900, L100.0100 #### [facility] [address] [place], [address] Eosinophils/100 WBC (Bld) 3.5 % Normal 0-5 [facility] Comment on above: Order Comment: 412.2 Performed By: #### L 500.4050, [id number], L100.0100 #### [facility] [address] [place], [address] Erythrocyte distribution width (RBC) [Ratio] 16.3 % High 11.6-14.6 [facility] Comment on above: Order Comment: 412.2 Performed By: #### L 500.4050, [id number], L100.0100 #### [facility] [address] [place], [address] Hematocrit (Bld) [Volume fraction] 32.8 % Low 40-54 [facility] Comment on above: Order Comment: 412.2 Performed By: #### L 500.4050, [id number], L100.0100 #### [facility] [address] [place], [address] Hemoglobin (Bld) [Mass/Vol] 10.1 g/dL Low 13.0-16.5 [facility] Comment on above: Order Comment: 412.2 Performed By: #### L 500.4050, [id number], L100.0100 #### [facility] [address] [place], [address] IG% 0.500 Normal 0.0-0.9 [facility] Comment on above: Order Comment: 412.2 Result Comment: IG% - Immature Granulocytes (promyelocytes, myelocytes and metamyelocytes) > 1% indicates that a LEFT SHIFT is Present. Performed By: #### L 500.4050, L300.3900, L100.0100 #### [facility] [address] [place], [address] Lymphocytes/100 WBC (Bld) 13.2 % Low 19-41 [facility] Comment on above: Order Comment: 412.2 Performed By: #### L 500.4050, L300.3900, L100.0100 #### [facility] [address] [place], [address] MCH (RBC) [Entitic mass] 30.1 pg Normal 27.0-32.0 [facility] Comment on above: Order Comment: 412.2 Performed By: #### L 500.4050, [id number], L100.0100 #### [facility] [address] [place], [address] MCHC (RBC) [Mass/Vol] 30.8 g/dL Low 32-36 [facility] Comment on above: Order Comment: 412.2 Performed By: #### L 500.4050, [id number], L100.0100 #### [facility] [address] [place], [address] MCV (RBC) [Entitic vol] 97.6 fL High 80-94 [facility] Comment on above: Order Comment: 412.2 Performed By: #### L 500.4050, [id number], L100.0100 #### [facility] [address] [place], [address] Monocytes/100 WBC (Bld) 14.3 % High 0-10 [facility] Comment on above: Order Comment: 412.2 Performed By: #### L 500.4050, [id number], L100.0100 #### [facility] [address] [place], [address] Neutrophils/100 WBC (Bld) 66.6 % Normal 47-70 [facility] Comment on above: Order Comment: 412.2 Performed By: #### L 500.4050, [id number], L100.0100 #### [facility] [address] [place], [address] Nucleated RBC (Bld) [#/Vol] 0 10*3/uL Normal 0-5 [facility] Comment on above: Order Comment: 412.2 Performed By: #### L 500.4050, [id number], L100.0100 #### [facility] [address] [place], [address] Platelet mean volume (Bld) [Entitic vol] 9.4 fL Normal 6.2-12.0 [facility] Comment on above: Order Comment: 412.2 Performed By: #### L 500.4050, [id number], L100.0100 #### [facility] [address] [place], [address] Platelets (Bld) [#/Vol] 383 10*3/uL Normal 150-450 [facility] Comment on above: Order Comment: 412.2 Performed By: #### L 500.4050, [id number], L100.0100 #### [facility] [address] [place], [address] RBC (Bld) [#/Vol] 3.36 10*6/uL Low 4.6-6.2 [facility] Comment on above: Order Comment: 412.2 Performed By: #### L 500.4050, [id number], L100.0100 #### [facility] [address] [place], [address] RDW SD 58.6 fl High 35.1-43.9 [facility] Comment on above: Order Comment: 412.2 Performed By: #### L 500.4050, [id number], L100.0100 #### [facility] [address] [place], [address] WBC (Bld) [#/Vol] 6.3 10*3/uL Normal 4.4-11.0 [facility] Comment on above: Order Comment: 412.2 Performed By: #### L 500.4050, [id number], L100.0100 #### [facility] [address] [place], [address] Comprehensive Metabolic Prof ilon 04-02-2025 Albumin [Mass/Vol] 3.2 g/dL Low 3.5-5.0 [facility] Comment on above: Order Comment: 412.2 Performed By: #### L 500.4050, [id number], L100.0100 #### [facility] [address] [place], [address] Albumin/Globulin [Mass ratio] 0.8 {ratio} Low 0.9-2.4 [facility] Comment on above: Order Comment: 412.2 Performed By: #### L 500.4050, [id number], L100.0100 #### [facility] [address] [place], [address] ALK PHOS 229 U/L High 40-129 [facility] Comment on above: Order Comment: 412.2 Performed By: #### L 500.4050, [id number], L100.0100 #### [facility] [address] [place], [address] ALT [Catalytic activity/Vol] 20 U/L Normal <=46 [facility] Comment on above: Order Comment: 412.2 Performed By: #### L 500.4050, [id number], L100.0100 #### [facility] [address] [place], [address] AST [Catalytic activity/Vol] 46 U/L High <=37 [facility] Comment on above: Order Comment: 412.2 Performed By: #### L 500.4050, [id number], L100.0100 #### [facility] [address] [place], [address] Bilirubin [Mass/Vol] 0.74 mg/dL Normal 0.00-1.30 [facility] Comment on above: Order Comment: 412.2 Performed By: #### L 500.4050, L300.3900, L100.0100 #### [facility] [address] [place], [address] BUN/CRE 8.2 RATIO Low 10-20 [facility] Comment on above: Order Comment: 412.2 Performed By: #### L 500.4050, L300.3900, L100.0100 #### [facility] [address] [place], [address] Calcium [Mass/Vol] 9.9 mg/dL Normal 7.6-11.0 [facility] Comment on above: Order Comment: 412.2 Performed By: #### L 500.4050, L300.3900, L100.0100 #### [facility] [address] [place], [address] Chloride [Moles/Vol] 98 mmol/L Normal 98-108 [facility] Comment on above: Order Comment: 412.2 Performed By: #### L 500.4050, L300.3900, L100.0100 #### [facility] [address] [place], [address] CO2 [Moles/Vol] 25.9 mmol/L Normal 21.0-32.0 [facility] Comment on above: Order Comment: 412.2 Performed By: #### L 500.4050, L300.3900, L100.0100 #### [facility] [address] [place], [address] Creatinine [Mass/Vol] 5.14 mg/dL High 0.70-1.20 [facility] Comment on above: Order Comment: 412.2 Performed By: #### L 500.4050, L300.3900, L100.0100 #### [facility] [address] [place], [address] GAP 12 Normal 5-15 [facility] Comment on above: Order Comment: 412.2 Performed By: #### L 500.4050, L300.3900, L100.0100 #### [facility] [address] [place], [address] GFR/1.73 sq M.predicted among non-blacks MDRD (S/P/Bld) [Vol rate/Area] 12 mL/min/{1.73_m2} Low >60 [facility] Comment on above: Order Comment: 412.2 Result Comment: mL/m in/1.73m2 CKD-EPI Creatinine Equation (2020) Performed By: #### L 500.4050, L300.3900, L100.0100 #### [facility] [address] [place], [address] Globulin (S) [Mass/Vol] 4.2 g/dL Normal 2.2-4.2 [facility] Comment on above: Order Comment: 412.2 Performed By: #### L 500.4050, L300.3900, L100.0100 #### [facility] [address] [place], [address] Glucose [Mass/Vol] 84 mg/dL Normal 70-99 [facility] Comment on above: Order Comment: 412.2 Performed By: #### L 500.4050, L300.3900, L100.0100 #### [facility] [address] [place], [address] Potassium [Moles/Vol] 5.6 mmol/L High 3.3-5.1 [facility] Comment on above: Order Comment: 412.2 Performed By: #### L 500.4050, L300.3900, L100.0100 #### [facility] [address] [place], [address] Sodium [Moles/Vol] 136 mmol/L Normal 133-145 [facility] Comment on above: Order Comment: 412.2 Performed By: #### L 500.4050, L300.3900, L100.0100 #### [facility] [address] [place], [address] T PROT 7.5 g/dL Normal 5.9-8.4 [facility] Comment on above: Order Comment: 412.2 Performed By: #### L 500.4050, L300.3900, L100.0100 #### [facility] [address] [place], [address] Urea nitrogen [Mass/Vol] 42 mg/dL High 4-19 [facility] Comment on above: Order Comment: 412.2 Performed By: #### L 500.4050, L300.3900, L100.0100 #### [facility] [address] [place], [address] Prothrombin Time w/INRon INR Coag (PPP) [Relative time] 2.1 {INR} Normal [facility] Comment on above: Order Comment: 412.2 Performed By: #### L 500.4050, L300.3900, L100.0100 #### [facility] [address] [place], [address] PT Coag (PPP) [Time] 23.9 s High 11.7-14.9 [facility] Comment on above: Order Comment: 412.2 Performed By: #### L 500.4050, L300.3900, L100.0100 #### [facility] [address] [place], [address] Prothrombin Time w/INRon INR Coag (PPP) [Relative time] 3.4 {INR} Normal [facility] Comment on above: Performed By: #### L 300.3900 #### [facility] [address] [place], [address] PT Coag (PPP) [Time] 35.4 s High 11.7-14.9 [facility] Comment on above: Performed By: #### L 300.3900 #### [facility] [address] [place], [address] 36on 03-26-2025 36 3rd attempt unable to speak to Sabino she's not in the office at them moment. Left message to call the office back to schedule Normal [facility] 36 Sabino has been notified the visit can not be virtual Normal [facility] 36 Name of Caller: Sabino- Felix walsh [place] Contact Reason for Appointment: Change 04/05/25 hospital follow up to a . Please call and advise. Office Name: [facility] Neurology [facility] CBC W/Diff, Automatedon 06- Anisocytosis Ql (Bld) 1+ Normal [facility] Comment on above: Order Comment: 412.2 Performed By: #### L 500.4050, L300.3900, L100.0100 #### [facility] [address] [place], [address] Comprehensive Metabolic Prof ilon 03-26-2025 Albumin [Mass/Vol] 3.2 g/dL Low 3.5-5.0 [facility] Comment on above: Order Comment: 412.2 Performed By: #### L 500.4050, L300.3900, L100.0100 #### [facility] [address] [place], [address] Albumin/Globulin [Mass ratio] 0.8 {ratio} Low 0.9-2.4 [facility] Comment on above: Order Comment: 412.2 Performed By: #### L 500.4050, L300.3900, L100.0100 #### [facility] [address] [place], [address] ALK PHOS 238 U/L High 40-129 [facility] Comment on above: Order Comment: 412.2 Performed By: #### L 500.4050, L300.3900, L100.0100 #### [facility] [address] [place], [address] ALT [Catalytic activity/Vol] 21 U/L Normal <=46 [facility] Comment on above: Order Comment: 412.2 Performed By: #### L 500.4050, L300.3900, L100.0100 #### [facility] [address] [place], [address] AST [Catalytic activity/Vol] 53 U/L High <=37 [facility] Comment on above: Order Comment: 412.2 Performed By: #### L 500.4050, L300.3900, L100.0100 #### [facility] [address] [place], [address] Bilirubin [Mass/Vol] 0.58 mg/dL Normal 0.00-1.30 [facility] Comment on above: Order Comment: 412.2 Performed By: #### L 500.4050, L300.3900, L100.0100 #### [facility] [address] [place], [address] BUN/CRE 6.9 RATIO Low 10-20 [facility] Comment on above: Order Comment: 412.2 Performed By: #### L 500.4050, L300.3900, L100.0100 #### [facility] [address] [place], [address] Calcium [Mass/Vol] 9.6 mg/dL Normal 7.6-11.0 [facility] Comment on above: Order Comment: 412.2 Performed By: #### L 500.4050, L300.3900, L100.0100 #### [facility] [address] [place], [address] Chloride [Moles/Vol] 102 mmol/L Normal 98-108 [facility] Comment on above: Order Comment: 412.2 Performed By: #### L 500.4050, L300.3900, L100.0100 #### [facility] [address] [place], [address] CO2 [Moles/Vol] 22.8 mmol/L Normal 21.0-32.0 [facility] Comment on above: Order Comment: 412.2 Performed By: #### L 500.4050, L300.3900, L100.0100 #### [facility] [address] [place], [address] Creatinine [Mass/Vol] 5.21 mg/dL High 0.70-1.20 [facility] Comment on above: Order Comment: 412.2 Performed By: #### L 500.4050, L300.3900, L100.0100 #### [facility] [address] [place], [address] GAP 14 Normal 5-15 [facility] Comment on above: Order Comment: 412.2 Performed By: #### L 500.4050, L300.3900, L100.0100 #### [facility] [address] [place], [address] GFR/1.73 sq M.predicted among non-blacks MDRD (S/P/Bld) [Vol rate/Area] 12 mL/min/{1.73_m2} Low >60 [facility] Comment on above: Order Comment: 412.2 Result Comment: mL/m in/1.73m2 CKD-EPI Creatinine Equation (2020) Performed By: #### L 500.4050, L300.3900, L100.0100 #### [facility] [address] [place], [address] Globulin (S) [Mass/Vol] 4.1 g/dL Normal 2.2-4.2 [facility] Comment on above: Order Comment: 412.2 Performed By: #### L 500.4050, L300.3900, L100.0100 #### [facility] [address] [place], [address] Glucose [Mass/Vol] 87 mg/dL Normal 70-99 [facility] Comment on above: Order Comment: 412.2 Performed By: #### L 500.4050, L300.3900, L100.0100 #### [facility] [address] [place], [address] Potassium [Moles/Vol] 4.9 mmol/L Normal 3.3-5.1 [facility] Comment on above: Order Comment: 412.2 Performed By: #### L 500.4050, L300.3900, L100.0100 #### [facility] [address] [place], [address] Sodium [Moles/Vol] 139 mmol/L Normal 133-145 [facility] Comment on above: Order Comment: 412.2 Performed By: #### L 500.4050, L300.3900, L100.0100 #### [facility] [address] [place], [address] T PROT 7.2 g/dL Normal 5.9-8.4 [facility] Comment on above: Order Comment: 412.2 Performed By: #### L 500.4050, L300.3900, L100.0100 #### [facility] [address] [place], [address] Urea nitrogen [Mass/Vol] 36 mg/dL High 4-19 [facility] Comment on above: Order Comment: 412.2 Performed By: #### L 500.4050, L300.3900, L100.0100 #### [facility] [address] [place], [address] Prothrombin Time w/INRon INR Coag (PPP) [Relative time] 3.3 {INR} Normal [facility] Comment on above: Order Comment: 412.2 Performed By: #### L 500.4050, L300.3900, L100.0100 #### [facility] [address] [place], [address] PT Coag (PPP) [Time] 34.4 s High 11.7-14.9 [facility] Comment on above: Order Comment: 412.2 Performed By: #### L 500.4050, L300.3900, L100.0100 #### [facility] [address] [place], [address] 36on 03-22-2025 36 Patient discharged to [facility] on 03/21 - please follow [facility] normalized rat io (INR) calculationOrdered By: Kayley Melendrez on 03-22-2025 INR Coag (Bld) [Relative time] 2.9 {INR} [facility] Prothrombin Time w/INRon INR Coag (PPP) [Relative time] 2.9 {INR} Normal [facility] Comment on above: Performed By: #### L 500.4050, L300.3900, L100.0100 #### [facility] [address] [place], [address] PT Coag (PPP) [Time] 30.7 s High 11.7-14.9 [facility] Comment on above: Performed By: #### L 500.4050, L300.3900, L100.0100 #### [facility] [address] [place], [address] Prothrombin timeOrdered By: Kayley Melendrez on 03-22-2025 PT Coag (PPP) [Time] 30.7 s High 11.7-14.9 [facility] 30on 03-21-2025 30 Normal [facility] [id number] 03-21-2025 [id number] MAR, Labs & Discharge med list [facility] [employer] per TCC request. Electronically signed by NELSON Rodrigues Normal [facility] [id number] Normal [facility] [id number] Normal [facility] APTTon 03-21-2025 aPTT Coag (Bld) [Time] 50.7 s High 20.0-30.5 [facility] Comment on above: Result Comment: ARPAN Kaplan COMMENTS:NOTE: The therapeutic time for Heparin anticoagulation, based on Xa activity inhibition, is an APTT of 46-80 seconds. Performed By: #### L AB320, [id number] ####Circuit Court Magistrate: DOMENICA JARA ([id number])[facility])[address] [place] [address] CBC (HEMOGRAM)on 03-21-2025 Erythrocyte distribution width (RBC) [Ratio] 19.9 % High 11.5-15.0 [facility] Comment on above: Performed By: #### L AB294 ####Circuit Court Magistrate: DOMENICA JARA ([id number])[facility])[address] [place] [address] Hematocrit (Bld) [Volume fraction] 29.2 % Low 40.0-52.0 [facility] Comment on above: Performed By: #### L AB294 ####Circuit Court Magistrate: DOMENICA JARA ([id number])[address] Hemoglobin (Bld) [Mass/Vol] 8.8 g/dL Low 13.0-18.0 [facility] Comment on above: Performed By: #### L AB294 ####Circuit Court Magistrate: DOMENICA [phone])[address] MCH (RBC) [Entitic mass] 30.2 pg Normal 26.0-34.0 [facility] Comment on above: Performed By: #### L AB294 ####Circuit Court Magistrate: DOMENICA [phone])[facility])[address] [place] [address] MCHC 30.1 % Low 30.5-36.0 [facility] Comment on above: Performed By: #### L AB294 ####Circuit Court Magistrate: DOMENICA JARA ([phone])[facility])[address] [place] [address] MCV (RBC) [Entitic vol] 100.3 fL High 77.0-99.0 S [facility] Comment on above: Performed By: #### L AB294 ####Circuit Court Magistrate: DOMENICA JARA ([id number])[facility])[address] [place] [address] Platelet mean volume (Bld) [Entitic vol] 8.9 fL Low 9.0-12.7 [facility] Comment on above: Performed By: #### L AB294 ####Circuit Court Magistrate: DOMENICA JARA ([phone])[facility])[address] [place] [address] Platelets (Bld) [#/Vol] 271 10*3/uL Normal 140-440 [facility] Comment on above: Performed By: #### L AB294 ####Circuit Court Magistrate: DOMENICA JARA ([id number])[facility])[address] [place] [address] RBC (Bld) [#/Vol] 2.91 10*6/uL Low 4.40-5.90 [facility] Comment on above: Performed By: #### L AB294 ####Circuit Court Magistrate: DOMENICA JARA ([id number])[facility])[address] [place] [address] WBC (Bld) [#/Vol] 8.0 10*3/uL Normal 3.6-10.7 [facility] Comment on above: Performed By: #### L AB294 ####Circuit Court Magistrate: DOMENICA JARA ([id number])[facility])[address] [place] [address] CBC panel Auto (Bld)on 03-21 Erythrocyte distribution width (RBC) [Ratio] 19.9 % High 11.5 - 15.0 % [facility] Hematocrit (Bld) [Volume fraction] 29.2 % Low 40.0 - 52.0 % [facility] Hemoglobin (Bld) [Mass/Vol] 8.8 g/dL Low 13.0 - 18.0 g/dL [facility] Interpretation and review of laboratory results Abnormal [facility] MCH (RBC) [Entitic mass] 30.2 pg 26. 0 - 34.0 pg [facility] MCHC (RBC) [Mass/Vol] 30.1 % Low 30.5 - 36.0 % [facility] MCV (RBC) [Entitic vol] 100.3 fL High 77.0 - 99.0 fL [facility] Platelet mean volume (Bld) [Entitic vol] 8.9 fL Low 9.0 - 12.7 fL [facility] Platelets (Bld) [#/Vol] 271 10*3/uL 140 - 440 10*3/uL [facility] RBC (Bld) [#/Vol] 2.91 10*6/uL Low 4.40 - 5.9 0 10*6/uL [facility] WBC (Bld) [#/Vol] 8 10*3/uL 3.6 - 10.7 10*3/uL [facility] COMPREHENSIVE METABOLIC PANE Victor M 03-21-2025 Albumin [Mass/Vol] 2.0 g/dL Low 3.5-5.0 [facility] Comment on above: Performed By: #### L AB17, [id number] ####Circuit Court Magistrate: DOMENICA JARA ([id number])[facility])[address] [place] [address] ALP [Catalytic activity/Vol] 217 U/L High 40-150 [facility] Comment on above: Performed By: #### L AB17, [id number] ####Circuit Court Magistrate: DOMENICA JARA ([id number])[facility])[address] [place] [address] ALT [Catalytic activity/Vol] 13 U/L Normal <40 [facility] Comment on above: Performed By: #### L AB17, [id number] ####Circuit Court Magistrate: DOMENICA JARA ([id number])[facility])[address] [place] [address] Anion gap [Moles/Vol] 8 mmol/L Normal 3-13 [facility] Comment on above: Performed By: #### L AB17, [id number] ####Circuit Court Magistrate: DOMENICA JARA ([id number])[facility] ([facility])[address] [place] [address] AST [Catalytic activity/Vol] 59 U/L High <34 [facility] Comment on above: Performed By: #### L AB17, [id number] ####Circuit Court Magistrate: DOMENICA JARA ([id number])[facility])[address] [place] [address] Bilirubin [Mass/Vol] 0.9 mg/dL Normal <1.2 [facility] Comment on above: Performed By: #### L AB17, [id number] ####Circuit Court Magistrate: DOMENICA JARA ([id number])[facility] ([facility])[address] [place] [address] Calcium [Mass/Vol] 9.0 mg/dL Normal 8.4-10.2 [facility] Comment on above: Performed By: #### L AB17, [id number] ####Circuit Court Magistrate: DOMENICA JARA ([id number])[facility] ([facility])[address] [place] [address] [place] Chloride [Moles/Vol] 99 mmol/L Normal 98-107 [facility] Comment on above: Performed By: #### L AB17, [id number] ####Circuit Court Magistrate: DOMENICA JARA ([id number])[facility] ([facility])[address] [place] [address] [place] CO2 [Moles/Vol] 27 mmol/L Normal 22-29 [facility] Comment on above: Performed By: #### L AB17, [id number] ####Circuit Court Magistrate: DOMENICA JARA ([id number])[facility])[address] [place] [address] [place] Creatinine [Mass/Vol] 3.36 mg/dL High 0.72-1.25 [facility] Comment on above: Performed By: #### Tameka ISAAC17, [id number] ####Circuit Court Magistrate: DOMENICA JARA ([id number])[facility])[address] [place] [address] GLOMERULAR FILTRATION RATE ML/MIN/1.73 SQ M.PREDICTED 20.2 mL/min/1.73m*2 Low >60.0 [facility] Comment on above: Result Comment: Calc ulation based on the Chronic Kidney Disease Epidemiology Collaboration (CKD-EPI) equation refit without adjustment for race Performed By: #### Tameka ARGUETA, [id number] ####Circuit Court Magistrate: DOMENICA JARA ([id number])[facility])[address] [place] [address] Glucose [Mass/Vol] 91 mg/dL Normal 74-100 [facility] Comment on above: Performed By: #### Tameka ARGUETA, [id number] ####Circuit Court Magistrate: DOMENICA JARA ([id number])[address] Potassium [Moles/Vol] 5.0 mmol/L Normal 3.5-5.1 [facility] Comment on above: Result Comment: [facility] potassium values may be up to 0.5 mmol/L lower than serum values. Performed By: #### Tameka ARGUETA, [id number] ####Circuit Court Magistrate: DOMENICA JARA ([phone])[address] Protein [Mass/Vol] 7.2 g/dL Normal 6.4-8.3 [facility] Comment on above: Performed By: #### L AB17, [id number] ####Circuit Court Magistrate: DOMENICA JARA ([id number])[address] Sodium [Moles/Vol] 134 mmol/L Low 136-145 [facility] Comment on above: Performed By: #### L AB17, [id number] ####Circuit Court Magistrate: DOMENICA JARA ([id number])[facility] ([facility])[address] [place] [address] Urea nitrogen [Mass/Vol] 24 mg/dL High 9-23 [facility] Comment on above: Performed By: #### L AB17, [id number] ####Circuit Court Magistrate: DOMENICA JARA ([id number])[facility] ([facility])[address] [place] [address] Comprehensive metabolic 1998 panelon 03-21-2025 Albumin [Mass/Vol] 2 g/dL Low 3.5 - 5.0 g/dL [facility] ALP [Catalytic activity/Vol] 217 U/L High 40 - 150 U/L [facility] ALT [Catalytic activity/Vol] 13 U/L NINF - 40 U/L [facility] Anion gap [Moles/Vol] 8 mmol/L 3 - 13 mmol/L [facility] AST [Catalytic activity/Vol] 59 U/L High NINF - 34 U/L [facility] Bilirubin [Mass/Vol] 0.9 mg/dL NINF - 1.2 mg/dL [facility] Calcium [Mass/Vol] 9 mg/dL 8.4 - 10. 2 mg/dL [facility] Chloride [Moles/Vol] 99 mmol/L 98 - 10 7 mmol/L [facility] CO2 [Moles/Vol] 27 mmol/L 22 - 29 mmol/L [facility] Creatinine [Mass/Vol] 3.36 mg/dL High 0.72 - 1.25 mg/dL [facility] GFR/1.73 sq M.predicted (S/P/Bld) [Vol rate/Area] 20.2 mL/min Low - PINF [facility] Comment on above: Calculation based on the Chronic Kidney Disease Epidemiology Collaboration (CKD-EPI) equation refit without adjustment for race Glucose [Mass/Vol] 91 mg/dL 74 - 100 mg/dL [facility] Interpretation and review of laboratory results Abnormal [facility] Potassium [Moles/Vol] 5 mmol/L 3.5 - 5.1 mmol/L [facility] Comment on above: Plasma potassium macey ues may be up to 0.5 mmol/L lower than serum values. Protein [Mass/Vol] 7.2 g/dL 6.4 - 8.3 g/dL [facility] Sodium [Moles/Vol] 134 mmol/L Low 136 - 145 mmol/L [facility] Urea nitrogen [Mass/Vol] 24 mg/dL High 9 - 23 mg/d L [facility] - Chemistry and C hemistry - challengeon 03-21-2025 Glucose [Mass/Vol] 88 mg/dL 70 - 100 mg/dL [facility] Magnesium [Mass/Vol] 1.8 mg/dL 1.6 - 2 .6 mg/dL [facility] - Coagulationon 0 03-21-2025 PT Coag (Bld) [Time] 29 s High 9.0 - 12.0 s [facility] MAGNESIUMon 03-21-2025 Magnesium [Mass/Vol] 1.8 mg/dL Normal 1.6-2.6 [facility] Comment on above: Result Comment: ARPAN Kaplan COMMENTS:Higher values can be expected in females during menses. Performed By: #### L AB17, [id number] ####Circuit Court Magistrate: DOMENICA JARA ([id number])[facility] ([facility])[address] [place] [address] Magnesium [Mass/Vol]on 03-21 Interpretation and review of laboratory results Normal [facility] Higher values can be expected in females during menses. [facility] No Panel Informationon 03-21 Interpretation and review of laboratory results Normal [facility] Performed by: [facility], [address] [place] [address] CLIA ID: [id number] [facility] Interpretation and review of laboratory results Abnormal [facility] Nursing Noteon 03-21-2025 Nursing Note Educated pt on importance of prescribed medications. Pt still refused. Normal [facility] PROTHROMBIN TIMEon INR Coag (PPP) [Relative time] 2.9 {INR} High 0.9-1.1 [facility] Comment on above: Result Comment: Vaughn [...] Myocardial Infarction Performed By: #### L AB320, [id number] ####Circuit Court Magistrate: DOMENICA JARA ([id number])[facility] ([facility])[address] [place] [address] PT Coag (PPP) [Time] 29.0 s High 9.0-12.0 [facility] Comment on above: Performed By: #### L AB320, [id number] ####Circuit Court Magistrate: DOMENICA JARA ([id number])[facility] ([facility])[address] [place] [address] PT Coag (Bld) [Time]on 03-21 INR Coag (PPP) [Relative time] 2.9 {INR} High 0.9 - 1.1 [facility] Comment on above: Recommended Anticoag ulant Therapy: [...] Myocardial Infarction Progress Noteon 03-21-2025 Progress Note Normal [facility] Progress Note Patient quit smoking in September. Accepting of handout with contact information for additional support to remain quit if neccesary. Normal [facility] Progress Note Normal [facility] Progress Note Normal [facility] Progress Note Normal [facility] aPTT Coag (Bld) [Time]on aPTT Coag (PPP) [Time] 50.7 s High 20.0 - 30.5 s [facility] NOTE: The therapeutic time for Heparin anticoagulation, based on Xa activity inhibition, is an APTT of 46-80 seconds. [facility] 30on 03-20-2025 30 Normal [facility] [id number] 03-20-2025 [id number] Normal [facility] 36on 03-20-2025 36 Patient was re-admitted on 03/13. Inpatient consult team is following his care. Normal [facility] APTTon 03-20-2025 aPTT Coag (Bld) [Time] 68.9 s High 20.0-30.5 [facility] Comment on above: Result Comment: ARPAN R COMMENTS:NOTE: The therapeutic time for Heparin anticoagulation, based on Xa activity inhibition, is an APTT of 46-80 seconds. Performed By: #### L AB325 ####Circuit Court Magistrate: DOMENICA JARA ([phone])[facility])[address] [place] [address] aPTT Coag (Bld) [Time] 61.5 s High 20.0-30.5 [facility] Comment on above: Result Comment: ARPAN Kaplan COMMENTS:NOTE: The therapeutic time for Heparin anticoagulation, based on Xa activity inhibition, is an APTT of 46-80 seconds. Performed By: #### L AB325 ####Circuit Court Magistrate: DOMENICA JARA ([phone])[facility] ([facility])[address] [place] [address] aPTT Coag (Bld) [Time] 44.1 s High 20.0-30.5 [facility] Comment on above: Result Comment: ARPAN Kaplan COMMENTS:NOTE: The therapeutic time for Heparin anticoagulation, based on Xa activity inhibition, is an APTT of 46-80 seconds. Performed By: #### L AB320, [id number] ####Circuit Court Magistrate: DOMENICA JARA ([phone])[facility] ([facility])[address] [place] [address] CBC (HEMOGRAM)on 03-20-2025 Erythrocyte distribution width (RBC) [Ratio] 20.2 % High 11.5-15.0 [facility] Comment on above: Performed By: #### L [id number] ####Circuit Court Magistrate: DOMENICA JARA ([id number])[facility] ([facility])[address] [place] [address] Hematocrit (Bld) [Volume fraction] 30.3 % Low 40.0-52.0 [facility] Comment on above: Performed By: #### L [id number] ####Circuit Court Magistrate: DOMENICA JARA ([phone])[facility])[address] [place] [address] Hemoglobin (Bld) [Mass/Vol] 9.2 g/dL Low 13.0-18.0 [facility] Comment on above: Performed By: #### L [id number] ####Circuit Court Magistrate: DOMENICA JARA ([id number])[facility] ([facility])[address] [place] [address] MCH (RBC) [Entitic mass] 30.7 pg Normal 26.0-34.0 [facility] Comment on above: Performed By: #### L [id number] ####Circuit Court Magistrate: DOMENICA JARA ([phone])[facility])[address] [place] [address] MCHC 30.4 % Low 30.5-36.0 [facility] Comment on above: Performed By: #### L [id number] ####Circuit Court Magistrate: DOMENICA JARA ([id number])[facility] ([facility])[address] [place] [address] MCV (RBC) [Entitic vol] 101.0 fL High 77.0-99.0 S [facility] Comment on above: Performed By: #### L [id number] ####Circuit Court Magistrate: DOMENICA JARA ([phone])[facility])[address] [place] [address] Platelet mean volume (Bld) [Entitic vol] 9.2 fL Normal 9.0-12.7 [facility] Comment on above: Performed By: #### L [id number] ####Circuit Court Magistrate: DOMENICA JARA ([phone])[facility])[address] [place] [address] Platelets (Bld) [#/Vol] 308 10*3/uL Normal 140-440 [facility] Comment on above: Performed By: #### L [id number] ####Circuit Court Magistrate: DOMENICA JARA ([id number])[facility] ([facility])[address] [place] [address] RBC (Bld) [#/Vol] 3.00 10*6/uL Low 4.40-5.90 [facility] Comment on above: Performed By: #### L [id number] ####Circuit Court Magistrate: DOMENICA JARA ([id number])[facility] ([facility])[address] [place] [address] WBC (Bld) [#/Vol] 8.1 10*3/uL Normal 3.6-10.7 [facility] Comment on above: Performed By: #### L [id number] ####Circuit Court Magistrate: DOMENICA JARA ([id number])[facility] ([facility])[address] [place] [address] CBC panel Auto (Bld)Ordered By: Anu Graham on 03-20-2025 Erythrocyte distribution width (RBC) [Ratio] 20.2 % High 11.5 - 15.0 % [facility] Hematocrit (Bld) [Volume fraction] 30.3 % Low 40.0 - 52.0 % [facility] Hemoglobin (Bld) [Mass/Vol] 9.2 g/dL Low 13.0 - 18.0 g/dL [facility] Interpretation and review of laboratory results Abnormal [facility] MCH (RBC) [Entitic mass] 30.7 pg 26. 0 - 34.0 pg [facility] MCHC (RBC) [Mass/Vol] 30.4 % Low 30.5 - 36.0 % [facility] MCV (RBC) [Entitic vol] 101 fL High 77.0 - 99.0 fL [facility] [employer] Platelet mean volume (Bld) [Entitic vol] 9.2 fL 9.0 - 12.7 fL [facility] Platelets (Bld) [#/Vol] 308 10*3/uL 140 - 440 10*3/uL [facility] RBC (Bld) [#/Vol] 3 10*6/uL Low 4.40 - 5.9 0 10*6/uL [facility] WBC (Bld) [#/Vol] 8.1 10*3/uL 3.6 - 10.7 10*3/uL [facility] COMPREHENSIVE METABOLIC PANE Victor M 03-20-2025 Albumin [Mass/Vol] 1.9 g/dL Low 3.5-5.0 [facility] Comment on above: Performed By: #### Tameka KWONG, LAB17 ####Circuit Court Magistrate: DOMENICA JARA ([id number])[facility] ([facility])[address] [place] [address] ALP [Catalytic activity/Vol] 194 U/L High 40-150 [facility] Comment on above: Performed By: #### L VARGHESE, LAB17 ####Circuit Court Magistrate: DOMENICA JARA ([id number])[facility] ([facility])[address] [place] [address] ALT [Catalytic activity/Vol] 13 U/L Normal <40 [facility] Comment on above: Performed By: #### Tameka KWONG, LAB17 ####Circuit Court Magistrate: DOMENICA JARA ([phone])[facility] ([facility])[address] [place] [address] Anion gap [Moles/Vol] 10 mmol/L Normal 3-13 [facility] Comment on above: Performed By: #### Tameka KWONG, LAB17 ####Circuit Court Magistrate: DOMENICA JARA ([id number])[facility] ([facility])[address] [place] [address] [place] AST [Catalytic activity/Vol] 46 U/L High <34 [facility] Comment on above: Performed By: #### Tameka KWONG, LAB17 ####Circuit Court Magistrate: DOMENICA JARA ([id number])[facility] ([facility])[address] [place] [address] [place] Bilirubin [Mass/Vol] 0.8 mg/dL Normal <1.2 [facility] Comment on above: Performed By: #### Tameka KWONG, LAB17 ####Circuit Court Magistrate: DOMENICA JARA ([id number])[facility] ([facility])[address] [place] [address] [place] Calcium [Mass/Vol] 9.1 mg/dL Normal 8.4-10.2 [facility] Comment on above: Performed By: #### L AB103, LAB17 ####Circuit Court Magistrate: DOMENICA JARA ([id number])[facility] ([facility])[address] [place] [address] Chloride [Moles/Vol] 102 mmol/L Normal 98-107 [facility] Comment on above: Performed By: #### L AB103, LAB17 ####Circuit Court Magistrate: DOMENICA JARA ([id number])[facility] ([facility])[address] [place] [address] CO2 [Moles/Vol] 24 mmol/L Normal 22-29 [facility] Comment on above: Performed By: #### L AB103, LAB17 ####Circuit Court Magistrate: DOMENICA JARA ([id number])[facility] ([facility])[address] [place] [address] Creatinine [Mass/Vol] 4.28 mg/dL High 0.72-1.25 [facility] Comment on above: Performed By: #### L AB103, LAB17 ####Circuit Court Magistrate: DOMENICA JARA ([phone])[facility] ([facility])[address] [place] [address] [place] GLOMERULAR FILTRATION RATE ML/MIN/1.73 SQ M.PREDICTED 15.1 mL/min/1.73m*2 Low >60.0 [facility] Comment on above: Result Comment: Calc ulation based on the Chronic Kidney Disease Epidemiology Collaboration (CKD-EPI) equation refit without adjustment for race Performed By: #### L AB103, LAB17 ####Circuit Court Magistrate: DOMENICA JARA ([id number])[facility] ([facility])[address] [place] [address] [place] Glucose [Mass/Vol] 91 mg/dL Normal 74-100 [facility] Comment on above: Performed By: #### L AB103, LAB17 ####Circuit Court Magistrate: DOMENICA JARA ([id number])[facility] ([facility])[address] [place] [address] [place] Potassium [Moles/Vol] 5.3 mmol/L High 3.5-5.1 [facility] Comment on above: Result Comment: [facility] potassium values may be up to 0.5 mmol/L lower than serum values. Performed By: #### L AB103, LAB17 ####Circuit Court Magistrate: DOMENICA JARA ([id number])[facility] ([facility])[address] [place] [address] Protein [Mass/Vol] 7.3 g/dL Normal 6.4-8.3 [facility] Comment on above: Performed By: #### L AB103, LAB17 ####Circuit Court Magistrate: DOMENICA JARA ([id number])[facility] ([facility])[address] [place] [address] Sodium [Moles/Vol] 136 mmol/L Normal 136-145 [facility] Comment on above: Performed By: #### L AB103, LAB17 ####Circuit Court Magistrate: DOMENICA JARA ([id number])[facility] ([facility])[address] [place] [address] Urea nitrogen [Mass/Vol] 32 mg/dL High 9-23 [facility] Comment on above: Performed By: #### L AB103, LAB17 ####Circuit Court Magistrate: DOMENICA JARA ([id number])[facility] ([facility])[address] [place] [address] Comprehensive metabolic 1998 panelon 03-20-2025 Albumin [Mass/Vol] 1.9 g/dL Low 3.5 - 5.0 g/dL [facility] ALP [Catalytic activity/Vol] 194 U/L High 40 - 150 U/L [facility] ALT [Catalytic activity/Vol] 13 U/L NINF - 40 U/L [facility] Anion gap [Moles/Vol] 10 mmol/L 3 - 13 mmol/L [facility] AST [Catalytic activity/Vol] 46 U/L High NINF - 34 U/L [facility] Bilirubin [Mass/Vol] 0.8 mg/dL NINF - 1.2 mg/dL [facility] Calcium [Mass/Vol] 9.1 mg/dL 8.4 - 10. 2 mg/dL [facility] Chloride [Moles/Vol] 102 mmol/L 98 - 10 7 mmol/L [facility] CO2 [Moles/Vol] 24 mmol/L 22 - 29 mmol/L [facility] Creatinine [Mass/Vol] 4.28 mg/dL High 0.72 - 1.25 mg/dL [facility] GFR/1.73 sq M.predicted (S/P/Bld) [Vol rate/Area] 15.1 mL/min Low - PINF [facility] Comment on above: Calculation based on the Chronic Kidney Disease Epidemiology Collaboration (CKD-EPI) equation refit without adjustment for race Glucose [Mass/Vol] 91 mg/dL 74 - 100 mg/dL [facility] Interpretation and review of laboratory results Abnormal [facility] Potassium [Moles/Vol] 5.3 mmol/L High 3.5 - 5.1 mmol/L [facility] Comment on above: Plasma potassium macey ues may be up to 0.5 mmol/L lower than serum values. Protein [Mass/Vol] 7.3 g/dL 6.4 - 8.3 g/dL [facility] Sodium [Moles/Vol] 136 mmol/L 136 - 145 mmol/L [facility] Urea nitrogen [Mass/Vol] 32 mg/dL High 9 - 23 mg/d L [facility] HBV surface Ab IA Qnon 03-20 Interpretation: <8.0 Non-Reactive 8.0-11.9 Equivocal >= 12.0 Ab Detected Note: If an equivocal result is interpreted, an antibody status is unable to be determined. Collect new specimen if clinically indicated. [facility] HBV surface Ag IA Qlon 03-20 Interpretation and review of laboratory results Normal [facility] HEPATITIS B SURFACE ANTIBODY on 03-20-2025 HEPATITIS B VIRUS SURFACE AB <8.0 Normal [facility] Comment on above: Result Comment: ORDE R COMMENTS:Interpretation:<8.0 Non-Reactive8.0-11.9 Equivocal>= 12.0 Ab DetectedNote: If an equivocal result is interpreted, an antibody status is unable to be determined. Collect new specimen if clinically indicated. Performed By: #### L AB472, [id number] ####Circuit Court Magistrate: DOMENICA JARA ([id number])[address] HEPATITIS B SURFACE ANTIGENo n 03-20-2025 HEPATITIS B VIRUS SURFACE AG Not detected Normal Not Detected [facility] Comment on above: Performed By: #### L AB472, [id number] ####Circuit Court Magistrate: DOMENICA JARA ([id number])[facility] ([facility])[address] [place] [address] Laboratory - Chemistry and C hemistry - challengeon 03-20-2025 Magnesium [Mass/Vol] 2 mg/dL 1.6 - 2 .6 mg/dL [facility] Laboratory - Coagulationon 0 03-20-2025 PT Coag (Bld) [Time] 19.1 s High 9.0 - 12.0 s [facility] - Microbiology an d Antimicrobial susceptibilityon 03-20-2025 HBV surface Ag IA Ql Not detected Not Detected [facility] HBV surface Ab IA Qn mIU/mL [facility] MAGNESIUMon 03-20-2025 Magnesium [Mass/Vol] 2.0 mg/dL Normal 1.6-2.6 [facility] Comment on above: Result Comment: ARPAN Kaplan COMMENTS:Higher values can be expected in females during menses. Performed By: #### L AB103, LAB17 ####Circuit Court Magistrate: DOMENICA JARA ([id number])[facility] ([facility])[address] [place] [address] Magnesium [Mass/Vol]on 03-20 Interpretation and review of laboratory results Normal [facility] Higher values can be expected in females during menses. [facility] No Panel Informationon 03-20 [facility] Interpretation and review of laboratory results Abnormal [facility] Nursing Noteon 03-20-2025 Nursing Note Normal [facility] PROTHROMBIN TIMEon INR Coag (PPP) [Relative time] 1.9 {INR} High 0.9-1.1 [facility] Comment on above: Result Comment: Vaughn [...] Myocardial Infarction Performed By: #### L AB320, [id number] ####Circuit Court Magistrate: DOMENICA JARA ([id number])[facility] ([facility])[address] [place] [address] PT Coag (PPP) [Time] 19.1 s High 9.0-12.0 [facility] [employer] [facility] Comment on above: Performed By: #### L AB320, [id number] ####Circuit Court Magistrate: DOMENICA JARA ([id number])[facility] ([facility])[address] [place] [address] [place] PT Coag (Bld) [Time]on 03-20 INR Coag (PPP) [Relative time] 1.9 {INR} High 0.9 - 1.1 [facility] Comment on above: Recommended Anticoag ulant Therapy: [...] Infarction Progress Noteon 03-20-2025 Progress Note Normal [facility] Progress Note Normal [facility] Progress Note Normal [facility] aPTT Coag (Bld) [Time]on aPTT Coag (PPP) [Time] 68.9 s High 20.0 - 30.5 s [facility] Interpretation and review of laboratory results Abnormal [facility] NOTE: The therapeutic time for Heparin anticoagulation, based on Xa activity inhibition, is an APTT of 46-80 seconds. [facility] aPTT Coag (PPP) [Time] 61.5 s High 20.0 - 30.5 s [facility] Interpretation and review of laboratory results Abnormal [facility] NOTE: The therapeutic time for Heparin anticoagulation, based on Xa activity inhibition, is an APTT of 46-80 seconds. [facility] aPTT Coag (PPP) [Time] 44.1 s High 20.0 - 30.5 s [facility] NOTE: The therapeutic time for Heparin anticoagulation, based on Xa activity inhibition, is an APTT of 46-80 seconds. [facility] 30on 03-19-2025 30 Normal [facility] 30 Normal [facility] [id number] 03-19-2025 [id number] Normal [facility] APTTon 03-19-2025 aPTT Coag (Bld) [Time] 47.3 s High 20.0-30.5 [facility] Comment on above: Result Comment: ARPAN Kaplan COMMENTS:NOTE: The therapeutic time for Heparin anticoagulation, based on Xa activity inhibition, is an APTT of 46-80 seconds. Performed By: #### L AB325 ####Circuit Court Magistrate: DOMENICA JARA ([phone])[address] aPTT Coag (Bld) [Time] 46.4 s High 20.0-30.5 [facility] Comment on above: Result Comment: ARPAN Kaplan COMMENTS:NOTE: The therapeutic time for Heparin anticoagulation, based on Xa activity inhibition, is an APTT of 46-80 seconds. Performed By: #### L AB320, [id number] ####Circuit Court Magistrate: DOMENICA JARA ([phone])[address] CBC (HEMOGRAM)on 03-19-2025 Erythrocyte distribution width (RBC) [Ratio] 20.8 % High 11.5-15.0 [facility] Comment on above: Performed By: #### L AB294 ####Circuit Court Magistrate: DOMENICA [phone])[address] Hematocrit (Bld) [Volume fraction] 30.4 % Low 40.0-52.0 [facility] Comment on above: Performed By: #### L AB294 ####Circuit Court Magistrate: DOMENICA [phone])[address] [place] [address] [place] Hemoglobin (Bld) [Mass/Vol] 8.9 g/dL Low 13.0-18.0 [facility] Comment on above: Performed By: #### L AB294 ####Circuit Court Magistrate: DOMENICA JARA ([phone])[facility])[address] [place] [address] MCH (RBC) [Entitic mass] 29.9 pg Normal 26.0-34.0 [facility] Comment on above: Performed By: #### L AB294 ####Circuit Court Magistrate: DOMENICA JARA ([phone])[facility])[address] [place] [address] MCHC 29.3 % Low 30.5-36.0 [facility] Comment on above: Performed By: #### L AB294 ####Circuit Court Magistrate: DOMENICA JARA ([id number])[facility])[address] [place] [address] MCV (RBC) [Entitic vol] 102.0 fL High 77.0-99.0 S [facility] Comment on above: Performed By: #### L AB294 ####Circuit Court Magistrate: DOMENICA JARA ([id number])[facility])[address] [place] [address] Platelet mean volume (Bld) [Entitic vol] 9.3 fL Normal 9.0-12.7 [facility] Comment on above: Performed By: #### L AB294 ####Circuit Court Magistrate: DOMENICA JARA ([phone])[facility])[address] [place] [address] Platelets (Bld) [#/Vol] 320 10*3/uL Normal 140-440 [facility] Comment on above: Performed By: #### L AB294 ####Circuit Court Magistrate: DOMENICA JARA ([id number])[facility])[address] [place] [address] RBC (Bld) [#/Vol] 2.98 10*6/uL Low 4.40-5.90 [facility] Comment on above: Performed By: #### L AB294 ####Circuit Court Magistrate: DOMENICA JARA ([id number])[facility] ([facility])[address] [place] [address] WBC (Bld) [#/Vol] 7.8 10*3/uL Normal 3.6-10.7 [facility] Comment on above: Performed By: #### L AB294 ####Circuit Court Magistrate: DOMENICA JARA ([id number])[facility])[address] [place] [address] CBC panel Auto (Bld)Ordered By: Liseth Granado on 03-19-2025 Erythrocyte distribution width (RBC) [Ratio] 20.8 % High 11.5 - 15.0 % [facility] Hematocrit (Bld) [Volume fraction] 30.4 % Low 40.0 - 52.0 % [facility] Hemoglobin (Bld) [Mass/Vol] 8.9 g/dL Low 13.0 - 18.0 g/dL [facility] Interpretation and review of laboratory results Abnormal [facility] MCH (RBC) [Entitic mass] 29.9 pg 26. 0 - 34.0 pg [facility] MCHC (RBC) [Mass/Vol] 29.3 % Low 30.5 - 36.0 % [facility] MCV (RBC) [Entitic vol] 102 fL High 77.0 - 99.0 fL [facility] Platelet mean volume (Bld) [Entitic vol] 9.3 fL 9.0 - 12.7 fL [facility] Platelets (Bld) [#/Vol] 320 10*3/uL 140 - 440 10*3/uL [facility] RBC (Bld) [#/Vol] 2.98 10*6/uL Low 4.40 - 5.9 0 10*6/uL [facility] WBC (Bld) [#/Vol] 7.8 10*3/uL 3.6 - 10.7 10*3/uL [facility] COMPREHENSIVE METABOLIC PANE Victor M 03-19-2025 Albumin [Mass/Vol] 2.0 g/dL Low 3.5-5.0 [facility] Comment on above: Performed By: #### L AB17, [id number] ####Circuit Court Magistrate: DOMENICA JARA ([id number])[facility] ([facility])[address] [place] [address] ALP [Catalytic activity/Vol] 221 U/L High 40-150 [facility] Comment on above: Performed By: #### L AB17, [id number] ####Circuit Court Magistrate: DOMENICA JARA ([id number])[facility] ([facility])[address] [place] [address] ALT [Catalytic activity/Vol] 14 U/L Normal <40 [facility] Comment on above: Performed By: #### L AB17, [id number] ####Circuit Court Magistrate: DOMENICA JARA ([id number])[facility] ([facility])[address] [place] [address] Anion gap [Moles/Vol] 8 mmol/L Normal 3-13 [facility] Comment on above: Performed By: #### L AB17, [id number] ####Circuit Court Magistrate: DOMENICA JARA ([id number])[facility])[address] [place] [address] AST [Catalytic activity/Vol] 52 U/L High <34 [facility] Comment on above: Performed By: #### L AB17, [id number] ####Circuit Court Magistrate: DOMENICA JARA ([id number])[facility] ([facility])[address] [place] [address] Bilirubin [Mass/Vol] 0.9 mg/dL Normal <1.2 [facility] Comment on above: Performed By: #### L AB17, [id number] ####Circuit Court Magistrate: DOMENICA JARA ([id number])[facility] ([facility])[address] [place] [address] Calcium [Mass/Vol] 9.0 mg/dL Normal 8.4-10.2 [facility] Comment on above: Performed By: #### L AB17, [id number] ####Circuit Court Magistrate: DOMENICA JARA ([id number])[facility] ([facility])[address] [place] [address] Chloride [Moles/Vol] 102 mmol/L Normal 98-107 [facility] Comment on above: Performed By: #### L AB17, [id number] ####Circuit Court Magistrate: DOMENICA JARA ([id number])[facility])[address] [place] [address] CO2 [Moles/Vol] 27 mmol/L Normal 22-29 [facility] Comment on above: Performed By: #### L AB17, [id number] ####Circuit Court Magistrate: DOMENICA JARA ([phone])[facility])[address] [place] [address] Creatinine [Mass/Vol] 3.67 mg/dL High 0.72-1.25 [facility] Comment on above: Performed By: #### L AB17, [id number] ####Circuit Court Magistrate: DOMENICA JARA ([id number])[facility])[address] [place] [address] GLOMERULAR FILTRATION RATE ML/MIN/1.73 SQ M.PREDICTED 18.2 mL/min/1.73m*2 Low >60.0 [facility] Comment on above: Result Comment: Calc ulation based on the Chronic Kidney Disease Epidemiology Collaboration (CKD-EPI) equation refit without adjustment for race Performed By: #### L AB17, [id number] ####Circuit Court Magistrate: DOMENICA JARA ([phone])[facility])[address] [place] [address] Glucose [Mass/Vol] 85 mg/dL Normal 74-100 [facility] Comment on above: Performed By: #### L AB17, [id number] ####Circuit Court Magistrate: DOMENICA JARA ([phone])[facility])[address] [place] [address] Potassium [Moles/Vol] 4.0 mmol/L Normal 3.5-5.1 [facility] Comment on above: Result Comment: [facility] potassium values may be up to 0.5 mmol/L lower than serum values. Performed By: #### L AB17, [id number] ####Circuit Court Magistrate: DOMENICA JARA ([id number])[facility])[address] [place] [address] Protein [Mass/Vol] 7.4 g/dL Normal 6.4-8.3 [facility] Comment on above: Performed By: #### L AB17, [id number] ####Circuit Court Magistrate: DOMENICA JARA ([id number])[facility])[address] [place] [address] Sodium [Moles/Vol] 137 mmol/L Normal 136-145 [facility] Comment on above: Performed By: #### L AB17, [id number] ####Circuit Court Magistrate: DOMENICA JARA ([phone])[facility])[address] [place] [address] Urea nitrogen [Mass/Vol] 24 mg/dL High 06-19 [facility] Comment on above: Performed By: #### L AB17, [id number] ####Circuit Court Magistrate: DOMENICA JARA ([id number])[facility])[address] [place] [address] Comprehensive metabolic 1998 panelOrdered By: Rikki Caballero on 03-19-2025 Albumin [Mass/Vol] 2 g/dL Low 3.5 - 5.0 g/dL [facility] ALP [Catalytic activity/Vol] 221 U/L High 40 - 150 U/L [facility] ALT [Catalytic activity/Vol] 14 U/L NINF - 40 U/L [facility] Anion gap [Moles/Vol] 8 mmol/L 3 - 13 mmol/L [facility] AST [Catalytic activity/Vol] 52 U/L High NINF - 34 U/L [facility] Bilirubin [Mass/Vol] 0.9 mg/dL NINF - 1.2 mg/dL [facility] Calcium [Mass/Vol] 9 mg/dL 8.4 - 10. 2 mg/dL [facility] Chloride [Moles/Vol] 102 mmol/L 98 - 10 7 mmol/L [facility] CO2 [Moles/Vol] 27 mmol/L 22 - 29 mmol/L [facility] Creatinine [Mass/Vol] 3.67 mg/dL High 0.72 - 1.25 mg/dL [facility] GFR/1.73 sq M.predicted (S/P/Bld) [Vol rate/Area] 18.2 mL/min Low - PINF [facility] Comment on above: Calculation based on the Chronic Kidney Disease Epidemiology Collaboration (CKD-EPI) equation refit without adjustment for race Glucose [Mass/Vol] 85 mg/dL 74 - 100 mg/dL [facility] Interpretation and review of laboratory results Abnormal [facility] Potassium [Moles/Vol] 4 mmol/L 3.5 - 5.1 mmol/L [facility] Comment on above: Plasma potassium macey ues may be up to 0.5 mmol/L lower than serum values. Protein [Mass/Vol] 7.4 g/dL 6.4 - 8.3 g/dL [facility] Sodium [Moles/Vol] 137 mmol/L 136 - 145 mmol/L [facility] Urea nitrogen [Mass/Vol] 24 mg/dL High 9 - 23 mg/d L [facility] - Chemistry and C hemistry - challengeon 03-19-2025 Magnesium [Mass/Vol] 1.9 mg/dL 1.6 - 2 .6 mg/dL [facility] - Coagulationon 0 03-19-2025 PT Coag (Bld) [Time] 17 s High 9.0 - 12.0 s [facility] MAGNESIUMon 03-19-2025 Magnesium [Mass/Vol] 1.9 mg/dL Normal 1.6-2.6 [facility] Comment on above: Result Comment: ARPAN R COMMENTS:Higher values can be expected in females during menses. Performed By: #### L AB17, [id number] ####Circuit Court Magistrate: DOMENICA JARA ([id number])[facility] ([facility])[address] [place] [address] Magnesium [Mass/Vol]on 03-19 Interpretation and review of laboratory results Normal [facility] Higher values can be expected in females during menses. [facility] No Panel Informationon 03-19 Interpretation and review of laboratory results Abnormal [facility] Nursing Noteon 03-19-2025 Nursing Note Wound vac suction failing-pt requesting wound vac removed for now. Black foam dressing removed and wound packed with saline-soaked gauze covered with DSD Normal [facility] Nursing Note Pt adamantly refusing telemetry at this time, ripped off monitor and threw to the floor Normal [facility] PROTHROMBIN TIMEon INR Coag (PPP) [Relative time] 1.6 {INR} High 0.9-1.1 [facility] Comment on above: Performed By: #### L AB320, [id number] ####Circuit Court Magistrate: DOMENICA JARA ([id number])[facility])[address] [place] [address] PT Coag (PPP) [Time] 17.0 s High 9.0-12.0 [facility] Comment on above: Performed By: #### L AB320, [id number] ####Circuit Court Magistrate: DOMENICA JARA ([phone])[facility])[address] [place] [address] PT Coag (Bld) [Time]on 03-19 INR Coag (PPP) [Relative time] 1.6 {INR} High 0.9 - 1.1 [facility] Progress Noteon 03-19-2025 Progress Note Normal [facility] Progress Note Normal [facility] Progress Note Normal [facility] Progress Note Normal [facility] aPTT Coag (Bld) [Time]on aPTT Coag (PPP) [Time] 47.3 s High 20.0 - 30.5 s [facility] Interpretation and review of laboratory results Abnormal [facility] NOTE: The therapeutic time for Heparin anticoagulation, based on Xa activity inhibition, is an APTT of 46-80 seconds. [facility] aPTT Coag (PPP) [Time] 46.4 s High 20.0 - 30.5 s [facility] NOTE: The therapeutic time for Heparin anticoagulation, based on Xa activity inhibition, is an APTT of 46-80 seconds. [facility] APTTon 03-18-2025 aPTT Coag (Bld) [Time] 51.8 s High 20.0-30.5 [facility] Comment on above: Result Comment: ARPAN Kaplan COMMENTS:NOTE: The therapeutic time for Heparin anticoagulation, based on Xa activity inhibition, is an APTT of 46-80 seconds. Performed By: #### L AB325 ####Circuit Court Magistrate: DOMENICA JARA ([phone])[facility])[address] [place] [address] aPTT Coag (Bld) [Time] 47.6 s High 20.0-30.5 [facility] Comment on above: Result Comment: ARPAN Kaplan COMMENTS:NOTE: The therapeutic time for Heparin anticoagulation, based on Xa activity inhibition, is an APTT of 46-80 seconds. Performed By: #### L AB325 ####Circuit Court Magistrate: DOMENICA JARA ([phone])[facility])[address] [place] [address] aPTT Coag (Bld) [Time] 48.8 s High 20.0-30.5 [facility] Comment on above: Result Comment: ARPAN Kaplan COMMENTS:NOTE: The therapeutic time for Heparin anticoagulation, based on Xa activity inhibition, is an APTT of 46-80 seconds. Performed By: #### L AB320, [id number] ####Circuit Court Magistrate: DOMENICA JARA ([id number])[address] CBC (HEMOGRAM)on 03-18-2025 Erythrocyte distribution width (RBC) [Ratio] 20.6 % High 11.5-15.0 [facility] Comment on above: Performed By: #### L AB294 ####Circuit Court Magistrate: DOMENICA [phone])[address] Hematocrit (Bld) [Volume fraction] 30.4 % Low 40.0-52.0 [facility] Comment on above: Performed By: #### L [id number] ####Circuit Court Magistrate: DOMENICA [phone])[address] Hemoglobin (Bld) [Mass/Vol] 9.1 g/dL Low 13.0-18.0 [facility] Comment on above: Performed By: #### L [id number] ####Circuit Court Magistrate: DOMENICA JARA ([phone])[facility])[address] [place] [address] MCH (RBC) [Entitic mass] 30.0 pg Normal 26.0-34.0 [facility] Comment on above: Performed By: #### L AB294 ####Circuit Court Magistrate: DOMENICA JARA ([id number])[facility])[address] [place] [address] MCHC 29.9 % Low 30.5-36.0 [facility] Comment on above: Performed By: #### L AB294 ####Circuit Court Magistrate: DOMENICA JARA ([phone])[facility])[address] [place] [address] MCV (RBC) [Entitic vol] 100.3 fL High 77.0-99.0 S [facility] Comment on above: Performed By: #### L [id number] ####Circuit Court Magistrate: DOMENICA JARA ([id number])[facility])[address] [place] [address] Platelet mean volume (Bld) [Entitic vol] 9.4 fL Normal 9.0-12.7 [facility] Comment on above: Performed By: #### L [id number] ####Circuit Court Magistrate: DOMENICA JARA ([id number])[facility])[address] [place] [address] Platelets (Bld) [#/Vol] 333 10*3/uL Normal 140-440 [facility] Comment on above: Performed By: #### L [id number] ####Circuit Court Magistrate: DOMENICA JARA ([id number])[facility])[address] [place] [address] RBC (Bld) [#/Vol] 3.03 10*6/uL Low 4.40-5.90 [facility] Comment on above: Performed By: #### L AB294 ####Circuit Court Magistrate: DOMENICA JARA ([id number])[facility])[address] [place] [address] WBC (Bld) [#/Vol] 7.6 10*3/uL Normal 3.6-10.7 [facility] Comment on above: Performed By: #### L [id number] ####Circuit Court Magistrate: DOMENICA JARA ([id number])[facility])[address] [place] [address] CBC panel Auto (Bld)Ordered By: Haley Vitale on 03-18-2025 Erythrocyte distribution width (RBC) [Ratio] 20.6 % High 11.5 - 15.0 % [facility] Hematocrit (Bld) [Volume fraction] 30.4 % Low 40.0 - 52.0 % [facility] Hemoglobin (Bld) [Mass/Vol] 9.1 g/dL Low 13.0 - 18.0 g/dL [facility] Interpretation and review of laboratory results Abnormal [facility] MCH (RBC) [Entitic mass] 30 pg 26. 0 - 34.0 pg [facility] MCHC (RBC) [Mass/Vol] 29.9 % Low 30.5 - 36.0 % [facility] MCV (RBC) [Entitic vol] 100.3 fL High 77.0 - 99.0 fL [facility] Platelet mean volume (Bld) [Entitic vol] 9.4 fL 9.0 - 12.7 fL [facility] Platelets (Bld) [#/Vol] 333 10*3/uL 140 - 440 10*3/uL [facility] RBC (Bld) [#/Vol] 3.03 10*6/uL Low 4.40 - 5.9 0 10*6/uL [facility] WBC (Bld) [#/Vol] 7.6 10*3/uL 3.6 - 10.7 10*3/uL [facility] COMPREHENSIVE METABOLIC PANE Victor M 03-18-2025 Albumin [Mass/Vol] 2.0 g/dL Low 3.5-5.0 [facility] Comment on above: Performed By: #### L AB103, LAB17 ####Circuit Court Magistrate: DOMENICA JARA ([id number])[facility] [place] [address] [place] ALP [Catalytic activity/Vol] 241 U/L High 40-150 [facility] Comment on above: Performed By: #### L AB103, LAB17 ####Circuit Court Magistrate: DOMENICA JARA ([id number])[facility])[address] [place] [address] [place] ALT [Catalytic activity/Vol] 11 U/L Normal <40 [facility] Comment on above: Performed By: #### L AB103, LAB17 ####Circuit Court Magistrate: DOMENICA JARA ([id number])[facility])[address] [place] [address] Anion gap [Moles/Vol] 10 mmol/L Normal 3-13 [facility] Comment on above: Performed By: #### L 103, LAB17 ####Circuit Court Magistrate: DOMENICA JARA ([id number])[facility])[address] [place] [address] [place] AST [Catalytic activity/Vol] 50 U/L High <34 [facility] Comment on above: Performed By: #### L VARGHESE, LAB17 ####Circuit Court Magistrate: DOMENICA JARA ([id number])[facility])[address] [place] [address] Bilirubin [Mass/Vol] 0.8 mg/dL Normal <1.2 [facility] Comment on above: Performed By: #### L VARGHESE, LAB17 ####Circuit Court Magistrate: DOMENICA JARA ([id number])[facility])[address] [place] [address] [place] Calcium [Mass/Vol] 9.0 mg/dL Normal 8.4-10.2 [facility] Comment on above: Performed By: #### L AB103, LAB17 ####Circuit Court Magistrate: DOMENICA JARA ([phone])[facility])[address] [place] [address] [place] Chloride [Moles/Vol] 100 mmol/L Normal 98-107 [facility] Comment on above: Performed By: #### L AB103, LAB17 ####Circuit Court Magistrate: DOMENICA JARA ([id number])[facility])[address] [place] [address] CO2 [Moles/Vol] 29 mmol/L Normal 22-29 [facility] Comment on above: Performed By: #### L AB103, LAB17 ####Circuit Court Magistrate: DOMENICA JARA ([phone])[facility])[address] [place] [address] Creatinine [Mass/Vol] 2.64 mg/dL High 0.72-1.25 [facility] Comment on above: Performed By: #### L VARGHESE, LAB17 ####Circuit Court Magistrate: DOMENICA JARA ([phone])[facility])[address] [place] [address] GLOMERULAR FILTRATION RATE ML/MIN/1.73 SQ M.PREDICTED 27.0 mL/min/1.73m*2 Low >60.0 [facility] Comment on above: Result Comment: Calc ulation based on the Chronic Kidney Disease Epidemiology Collaboration (CKD-EPI) equation refit without adjustment for race Performed By: #### L VARGHESE, LAB17 ####Circuit Court Magistrate: DOMENICA JARA ([phone])[facility])[address] [place] [address] Glucose [Mass/Vol] 73 mg/dL Low 74-100 [facility] Comment on above: Performed By: #### L AB103, LAB17 ####Circuit Court Magistrate: DOMENICA JARA ([id number])[facility])[address] [place] [address] Potassium [Moles/Vol] 3.4 mmol/L Low 3.5-5.1 [facility] Comment on above: Result Comment: [facility] potassium values may be up to 0.5 mmol/L lower than serum values. Performed By: #### L AB103, LAB17 ####Circuit Court Magistrate: DOMENICA JARA ([id number])[facility])[address] [place] [address] Protein [Mass/Vol] 7.3 g/dL Normal 6.4-8.3 [facility] Comment on above: Performed By: #### Tameka KWONG, LAB17 ####Circuit Court Magistrate: DMOENICA JARA ([id number])[facility])[address] [place] [address] Sodium [Moles/Vol] 139 mmol/L Normal 136-145 [facility] Comment on above: Performed By: #### Tameka KWONG, LAB17 ####Circuit Court Magistrate: DOMENICA JARA ([phone])[facility])[address] [place] [address] Urea nitrogen [Mass/Vol] 16 mg/dL Normal 9-23 [facility] Comment on above: Performed By: #### Tameka KWONG, LAB17 ####Circuit Court Magistrate: DOMENICA JARA ([phone])[facility])[address] [place] [address] Comprehensive metabolic 1998 panelon 03-18-2025 Albumin [Mass/Vol] 2 g/dL Low 3.5 - 5.0 g/dL [facility] ALP [Catalytic activity/Vol] 241 U/L High 40 - 150 U/L [facility] ALT [Catalytic activity/Vol] 11 U/L [facility] - 40 U/L [facility] Anion gap [Moles/Vol] 10 mmol/L 3 - 13 mmol/L [facility] AST [Catalytic activity/Vol] 50 U/L High NINF - 34 U/L [facility] Bilirubin [Mass/Vol] 0.8 mg/dL NINF - 1.2 mg/dL [facility] Calcium [Mass/Vol] 9 mg/dL 8.4 - 10. 2 mg/dL [facility] Chloride [Moles/Vol] 100 mmol/L 98 - 10 7 mmol/L [facility] CO2 [Moles/Vol] 29 mmol/L 22 - 29 mmol/L [facility] Creatinine [Mass/Vol] 2.64 mg/dL High 0.72 - 1.25 mg/dL [facility] GFR/1.73 sq M.predicted (S/P/Bld) [Vol rate/Area] 27 mL/min Low - PINF [facility] Comment on above: Calculation based on the Chronic Kidney Disease Epidemiology Collaboration (CKD-EPI) equation refit without adjustment for race Glucose [Mass/Vol] 73 mg/dL Low 74 - 100 mg/dL [facility] Interpretation and review of laboratory results Abnormal [facility] Potassium [Moles/Vol] 3.4 mmol/L Low 3.5 - 5.1 mmol/L [facility] Comment on above: Plasma potassium macey ues may be up to 0.5 mmol/L lower than serum values. Protein [Mass/Vol] 7.3 g/dL 6.4 - 8.3 g/dL [facility] Sodium [Moles/Vol] 139 mmol/L 136 - 145 mmol/L [facility] Urea nitrogen [Mass/Vol] 16 mg/dL 9 - 23 mg/d L [facility] - Chemistry and C hemistry - challengeon 03-18-2025 Magnesium [Mass/Vol] 1.9 mg/dL 1.6 - 2 .6 mg/dL [facility] - Coagulationon 0 03-18-2025 PT Coag (Bld) [Time] 15.2 s High 9.0 - 12.0 s [facility] MAGNESIUMon 03-18-2025 Magnesium [Mass/Vol] 1.9 mg/dL Normal 1.6-2.6 [facility] Comment on above: Result Comment: ARPAN Kaplan COMMENTS:Higher values can be expected in females during menses. Performed By: #### L AB103, LAB17 ####Circuit Court Magistrate: DOMENICA JARA ([id number])[address] Magnesium [Mass/Vol]on 03-18 Interpretation and review of laboratory results Normal [facility] Higher values can be expected in females during menses. [facility] No Panel Informationon 03-18 [facility] Interpretation and review of laboratory results Abnormal [facility] PROTHROMBIN TIMEon INR Coag (PPP) [Relative time] 1.5 {INR} High 0.9-1.1 [facility] Comment on above: Result Comment: Vaughn [...] Myocardial Infarction Performed By: #### Tameka AB320, [id number] ####Circuit Court Magistrate: DOMENICA JARA ([phone])[address] PT Coag (PPP) [Time] 15.2 s High 9.0-12.0 [facility] Comment on above: Performed By: #### Tameka AB320, [id number] ####Circuit Court Magistrate: DOMENICA JARA ([phone])[facility])[address] [place] [address] PT Coag (Bld) [Time]on 03-18 INR Coag (PPP) [Relative time] 1.5 {INR} High 0.9 - 1.1 [facility] Comment on above: Recommended Anticoag ulant Therapy: [...] Infarction Progress Noteon 03-18-2025 Progress Note Normal [facility] Progress Note Normal [facility] Progress Note Normal [facility] aPTT Coag (Bld) [Time]on aPTT Coag (PPP) [Time] 51.8 s High 20.0 - 30.5 s [facility] Interpretation and review of laboratory results Abnormal [facility] NOTE: The therapeutic time for Heparin anticoagulation, based on Xa activity inhibition, is an APTT of 46-80 seconds. [facility] aPTT Coag (PPP) [Time] 47.6 s High 20.0 - 30.5 s [facility] Interpretation and review of laboratory results Abnormal [facility] NOTE: The therapeutic time for Heparin anticoagulation, based on Xa activity inhibition, is an APTT of 46-80 seconds. [facility] aPTT Coag (PPP) [Time] 48.8 s High 20.0 - 30.5 s [facility] NOTE: The therapeutic time for Heparin anticoagulation, based on Xa activity inhibition, is an APTT of 46-80 seconds. [facility] 30on 03-17-2025 30 Normal [facility] APTTon 03-17-2025 aPTT Coag (Bld) [Time] 44.1 s High 20.0-30.5 [facility] Comment on above: Result Comment: ARPAN Kaplan COMMENTS:NOTE: The therapeutic time for Heparin anticoagulation, based on Xa activity inhibition, is an APTT of 46-80 seconds. Performed By: #### L AB325 ####Circuit Court Magistrate: DOMENICA JARA ([id number])[facility])[address] [place] [address] aPTT Coag (Bld) [Time] 29.1 s Normal 20.0-30.5 [facility] Comment on above: Result Comment: ARPAN Kaplan COMMENTS:NOTE: The therapeutic time for Heparin anticoagulation, based on Xa activity inhibition, is an APTT of 46-80 seconds. Performed By: #### L AB325 ####Circuit Court Magistrate: DOMENICA [phone])[address] CBC (HEMOGRAM)on 03-17-2025 Erythrocyte distribution width (RBC) [Ratio] 21.2 % High 11.5-15.0 [facility] Comment on above: Performed By: #### L AB294 ####Circuit Court Magistrate: DOMENICA [id number])[facility])[address] [place] [address] Hematocrit (Bld) [Volume fraction] 33.8 % Low 40.0-52.0 [facility] Comment on above: Performed By: #### L AB294 ####Circuit Court Magistrate: DOMENICA [phone])[facility])[address] [place] [address] Hemoglobin (Bld) [Mass/Vol] 10.0 g/dL Low 13.0-18.0 [facility] Comment on above: Performed By: #### L AB294 ####Circuit Court Magistrate: DOMENICA JARA ([phone])[facility])[address] [place] [address] MCH (RBC) [Entitic mass] 30.2 pg Normal 26.0-34.0 [facility] Comment on above: Performed By: #### L AB294 ####Circuit Court Magistrate: DOMENICA JARA ([id number])[facility])[address] [place] [address] MCHC 29.6 % Low 30.5-36.0 [facility] Comment on above: Performed By: #### L AB294 ####Circuit Court Magistrate: DOMENICA JARA ([id number])[facility])[address] [place] [address] MCV (RBC) [Entitic vol] 102.1 fL High 77.0-99.0 S [facility] Comment on above: Performed By: #### L AB294 ####Circuit Court Magistrate: DOMENICA JARA ([id number])[facility])[address] [place] [address] Platelet mean volume (Bld) [Entitic vol] 9.2 fL Normal 9.0-12.7 [facility] Comment on above: Performed By: #### L AB294 ####Circuit Court Magistrate: DOMENICA JARA ([id number])[facility])[address] [place] [address] [place] Platelets (Bld) [#/Vol] 407 10*3/uL Normal 140-440 [facility] Comment on above: Performed By: #### L AB294 ####Circuit Court Magistrate: DOMENICA JARA ([id number])[facility])[address] [place] [address] RBC (Bld) [#/Vol] 3.31 10*6/uL Low 4.40-5.90 [facility] Comment on above: Performed By: #### L AB294 ####Circuit Court Magistrate: DOMENICA JARA ([phone])[facility])[address] [place] [address] WBC (Bld) [#/Vol] 6.7 10*3/uL Normal 3.6-10.7 [facility] Comment on above: Performed By: #### L AB294 ####Circuit Court Magistrate: DOMENICA JARA ([id number])[facility])[address] [place] [address] CBC panel Auto (Bld)Ordered By: Giancarlo Lakhani on 03-17-2025 Erythrocyte distribution width (RBC) [Ratio] 21.2 % High 11.5 - 15.0 % [facility] Hematocrit (Bld) [Volume fraction] 33.8 % Low 40.0 - 52.0 % [facility] Hemoglobin (Bld) [Mass/Vol] 10 g/dL Low 13.0 - 18.0 g/dL [facility] Interpretation and review of laboratory results Abnormal [facility] MCH (RBC) [Entitic mass] 30.2 pg 26. 0 - 34.0 pg [facility] MCHC (RBC) [Mass/Vol] 29.6 % Low 30.5 - 36.0 % [facility] MCV (RBC) [Entitic vol] 102.1 fL High 77.0 - 99.0 fL [facility] Platelet mean volume (Bld) [Entitic vol] 9.2 fL 9.0 - 12.7 fL [facility] Platelets (Bld) [#/Vol] 407 10*3/uL 140 - 440 10*3/uL [facility] RBC (Bld) [#/Vol] 3.31 10*6/uL Low 4.40 - 5.9 0 10*6/uL [facility] WBC (Bld) [#/Vol] 6.7 10*3/uL 3.6 - 10.7 10*3/uL [facility] COMPREHENSIVE METABOLIC PANE Victor M 03-17-2025 Albumin [Mass/Vol] 2.2 g/dL Low 3.5-5.0 [facility] Comment on above: Performed By: #### L AB17, [id number], [id number] ####Circuit Court Magistrate: DOMENICA JARA ([phone])[facility])[address] [place] [address] ALP [Catalytic activity/Vol] 223 U/L High 40-150 [facility] Comment on above: Performed By: #### L AB17, [id number], [id number] ####Circuit Court Magistrate: DOMENICA JARA ([id number])[facility])[address] [place] [address] ALT [Catalytic activity/Vol] 15 U/L Normal <40 [facility] Comment on above: Performed By: #### L AB17, [id number], [id number] ####Circuit Court Magistrate: DOMENICA JARA ([id number])[facility])[address] [place] [address] Anion gap [Moles/Vol] 12 mmol/L Normal 3-13 [facility] Comment on above: Performed By: #### L AB17, [id number], [id number] ####Circuit Court Magistrate: DOMENICA JARA ([id number])[facility])[address] [place] [address] AST [Catalytic activity/Vol] 54 U/L High <34 [facility] Comment on above: Performed By: #### L AB17, [id number], [id number] ####Circuit Court Magistrate: DOMENICA JARA ([phone])[facility])[address] [place] [address] Bilirubin [Mass/Vol] 0.9 mg/dL Normal <1.2 [facility] Comment on above: Performed By: #### L AB17, [id number], [id number] ####Circuit Court Magistrate: DOMENICA JARA ([phone])[facility])[address] [place] [address] Calcium [Mass/Vol] 9.6 mg/dL Normal 8.4-10.2 [facility] Comment on above: Performed By: #### L AB17, [id number], [id number] ####Circuit Court Magistrate: DOMENICA JARA ([id number])[facility])[address] [place] [address] [place] Chloride [Moles/Vol] 104 mmol/L Normal 98-107 [facility] Comment on above: Performed By: #### L AB17, [id number], [id number] ####Circuit Court Magistrate: DOMENICA JARA ([phone])[facility])[address] [place] [address] [place] CO2 [Moles/Vol] 25 mmol/L Normal 22-29 [facility] Comment on above: Performed By: #### L AB17, [id number], [id number] ####Circuit Court Magistrate: DOMENICA JARA ([phone])[facility])[address] [place] [address] Creatinine [Mass/Vol] 3.25 mg/dL High 0.72-1.25 [facility] Comment on above: Performed By: #### Tameka AB17, [id number], [id number] ####Circuit Court Magistrate: DOMENICA JARA ([phone])[facility])[address] [place] [address] [place] GLOMERULAR FILTRATION RATE ML/MIN/1.73 SQ M.PREDICTED 21.1 mL/min/1.73m*2 Low >60.0 [facility] Comment on above: Result Comment: Calc ulation based on the Chronic Kidney Disease Epidemiology Collaboration (CKD-EPI) equation refit without adjustment for race Performed By: #### L AB17, [id number], [id number] ####Circuit Court Magistrate: DOMENICA JARA ([phone])[facility])[address] [place] [address] [place] Glucose [Mass/Vol] 87 mg/dL Normal 74-100 [facility] Comment on above: Performed By: #### L AB17, [id number], [id number] ####Circuit Court Magistrate: DOMENICA JARA ([id number])[facility])[address] [place] [address] [place] Potassium [Moles/Vol] 3.9 mmol/L Normal 3.5-5.1 [facility] Comment on above: Result Comment: [facility] potassium values may be up to 0.5 mmol/L lower than serum values. Performed By: #### L AB17, [id number], [id number] ####Circuit Court Magistrate: DOMENICA JARA ([phone])[facility])[address] [place] [address] Protein [Mass/Vol] 8.0 g/dL Normal 6.4-8.3 [facility] Comment on above: Performed By: #### L AB17, [id number], [id number] ####Circuit Court Magistrate: DOMENICA JARA ([id number])[facility])[address] [place] [address] Sodium [Moles/Vol] 141 mmol/L Normal 136-145 [facility] Comment on above: Performed By: #### L AB17, [id number], [id number] ####Circuit Court Magistrate: DOMENICA JARA ([id number])[facility])[address] [place] [address] Urea nitrogen [Mass/Vol] 22 mg/dL Normal 9-23 [facility] Comment on above: Performed By: #### L AB17, [id number], [id number] ####Circuit Court Magistrate: DOMENICA JARA ([phone])[facility])[address] [place] [address] Comprehensive metabolic 1998 panelon 03-17-2025 Albumin [Mass/Vol] 2.2 g/dL Low 3.5 - 5.0 g/dL [facility] ALP [Catalytic activity/Vol] 223 U/L High 40 - 150 U/L [facility] ALT [Catalytic activity/Vol] 15 U/L NINF - 40 U/L [facility] Anion gap [Moles/Vol] 12 mmol/L 3 - 13 mmol/L [facility] AST [Catalytic activity/Vol] 54 U/L High NINF - 34 U/L [facility] Bilirubin [Mass/Vol] 0.9 mg/dL NINF - 1.2 mg/dL [facility] Calcium [Mass/Vol] 9.6 mg/dL 8.4 - 10. 2 mg/dL [facility] Chloride [Moles/Vol] 104 mmol/L 98 - 10 7 mmol/L [facility] CO2 [Moles/Vol] 25 mmol/L 22 - 29 mmol/L [facility] Creatinine [Mass/Vol] 3.25 mg/dL High 0.72 - 1.25 mg/dL [facility] GFR/1.73 sq M.predicted (S/P/Bld) [Vol rate/Area] 21.1 mL/min Low - PINF [facility] Comment on above: Calculation based on the Chronic Kidney Disease Epidemiology Collaboration (CKD-EPI) equation refit without adjustment for race Glucose [Mass/Vol] 87 mg/dL 74 - 100 mg/dL [facility] Interpretation and review of laboratory results Abnormal [facility] Potassium [Moles/Vol] 3.9 mmol/L 3.5 - 5.1 mmol/L [facility] Comment on above: Plasma potassium macey ues may be up to 0.5 mmol/L lower than serum values. Protein [Mass/Vol] 8 g/dL 6.4 - 8.3 g/dL [facility] Sodium [Moles/Vol] 141 mmol/L 136 - 145 mmol/L [facility] Urea nitrogen [Mass/Vol] 22 mg/dL 9 - 23 mg/d L [facility] Laboratory - Chemistry and C hemistry - challengeon 03-17-2025 Magnesium [Mass/Vol] 2.2 mg/dL 1.6 - 2 .6 mg/dL [facility] - Coagulationon 0 03-17-2025 PT Coag (Bld) [Time] 16 s High 9.0 - 12.0 s [facility] MAGNESIUMon 03-17-2025 Magnesium [Mass/Vol] 2.2 mg/dL Normal 1.6-2.6 [facility] Comment on above: Result Comment: ARPAN Kaplan COMMENTS:Higher values can be expected in females during menses. Performed By: #### L AB17, [id number], [id number] ####Circuit Court Magistrate: DOMENICA JARA ([phone])[facility] ([facility])[address] [place] [address] Magnesium [Mass/Vol]on 03-17 Interpretation and review of laboratory results Normal [facility] Higher values can be expected in females during menses. [facility] NT PRO BNPon 03-17-2025 NT PRO BNP >60885 High <125 [facility] Comment on above: Performed By: #### L AB17, [id number], [id number] ####Circuit Court Magistrate: DOMENICA JARA ([phone])[facility])[address] [place] [address] Natriuretic peptide B [Mass/ Vol]on 03-17-2025 Interpretation and review of laboratory results Abnormal [facility] Natriuretic peptide B (Bld) [Mass/Vol] pg/mL High NINF - 125 pg/mL [facility] No Panel Informationon 03-17 [facility] Nursing Noteon 03-17-2025 Nursing Note Normal [facility] PROTHROMBIN TIMEon INR Coag (PPP) [Relative time] 1.5 {INR} High 0.9-1.1 [facility] Comment on above: Result Comment: Vaughn [...] Myocardial Infarction Performed By: #### L [id number] ####Circuit Court Magistrate: DOMENICA JARA ([id number])[facility])[address] [place] [address] PT Coag (PPP) [Time] 16.0 s High 9.0-12.0 [facility] Comment on above: Performed By: #### L [id number] ####Circuit Court Magistrate: DOMENICA JARA ([id number])[facility])[address] [place] [address] PT Coag (Bld) [Time]on 03-17 INR Coag (PPP) [Relative time] 1.5 {INR} High 0.9 - 1.1 [facility] Comment on above: Recommended Anticoag ulant Therapy: [...] Interpretation and review of laboratory results Abnormal [facility] Progress Noteon 03-17-2025 Progress Note Normal [facility] Progress Note Normal [facility] Progress Note Normal [facility] aPTT Coag (Bld) [Time]on aPTT Coag (PPP) [Time] 44.1 s High 20.0 - 30.5 s [facility] Interpretation and review of laboratory results Abnormal [facility] NOTE: The therapeutic time for Heparin anticoagulation, based on Xa activity inhibition, is an APTT of 46-80 seconds. [facility] aPTT Coag (PPP) [Time] 29.1 s 20.0 - 30.5 s [facility] Interpretation and review of laboratory results Normal [facility] NOTE: The therapeutic time for Heparin anticoagulation, based on Xa activity inhibition, is an APTT of 46-80 seconds. [facility] 30on 03-16-2025 30 Normal [facility] 30 Normal [facility] CBC (HEMOGRAM)on 03-16-2025 Erythrocyte distribution width (RBC) [Ratio] 21.2 % High 11.5-15.0 [facility] Comment on above: Performed By: #### L [id number] ####Circuit Court Magistrate: DOMENICA JARA ([phone])[address] Hematocrit (Bld) [Volume fraction] 30.2 % Low 40.0-52.0 [facility] Comment on above: Performed By: #### L [id number] ####Circuit Court Magistrate: DOMENICA JARA ([phone])[address] Hemoglobin (Bld) [Mass/Vol] 9.1 g/dL Low 13.0-18.0 [facility] Comment on above: Performed By: #### L [id number] ####Circuit Court Magistrate: DOMENICA JARA ([id number])[facility])[address] [place] [address] MCH (RBC) [Entitic mass] 30.1 pg Normal 26.0-34.0 [facility] Comment on above: Performed By: #### L [id number] ####Circuit Court Magistrate: DOMENICA JARA ([id number])[facility])[address] [place] [address] MCHC 30.1 % Low 30.5-36.0 [facility] Comment on above: Performed By: #### L [id number] ####Circuit Court Magistrate: DOMENICA JARA ([id number])[facility])[address] [place] [address] MCV (RBC) [Entitic vol] 100.0 fL High 77.0-99.0 [facility] Comment on above: Performed By: #### L [id number] ####Circuit Court Magistrate: DOMENICA JARA ([id number])[facility])[address] [place] [address] Platelet mean volume (Bld) [Entitic vol] 9.0 fL Normal 9.0-12.7 [facility] Comment on above: Performed By: #### L [id number] ####Circuit Court Magistrate: DOMENICA JARA ([phone])[facility])[address] [place] [address] Platelets (Bld) [#/Vol] 372 10*3/uL Normal 140-440 [facility] Comment on above: Performed By: #### L [id number] ####Circuit Court Magistrate: DOMENICA JARA ([id number])[facility])[address] [place] [address] RBC (Bld) [#/Vol] 3.02 10*6/uL Low 4.40-5.90 [facility] Comment on above: Performed By: #### L [id number] ####Circuit Court Magistrate: DOMENICA JARA ([id number])[facility] ([facility])[address] [place] [address] WBC (Bld) [#/Vol] 7.0 10*3/uL Normal 3.6-10.7 [facility] Comment on above: Performed By: #### L [id number] ####Circuit Court Magistrate: DOMENICA JARA ([id number])[facility] [place] [address] CBC panel Auto (Bld)Ordered By: Callie Steele on 03-16-2025 Erythrocyte distribution width (RBC) [Ratio] 21.2 % High 11.5 - 15.0 % [facility] Hematocrit (Bld) [Volume fraction] 30.2 % Low 40.0 - 52.0 % [facility] Hemoglobin (Bld) [Mass/Vol] 9.1 g/dL Low 13.0 - 18.0 g/dL [facility] Interpretation and review of laboratory results Abnormal [facility] MCH (RBC) [Entitic mass] 30.1 pg 26. 0 - 34.0 pg [facility] MCHC (RBC) [Mass/Vol] 30.1 % Low 30.5 - 36.0 % [facility] MCV (RBC) [Entitic vol] 100 fL High 77.0 - 99.0 fL [facility] Platelet mean volume (Bld) [Entitic vol] 9 fL 9.0 - 12.7 fL [facility] Platelets (Bld) [#/Vol] 372 10*3/uL 140 - 440 10*3/uL [facility] RBC (Bld) [#/Vol] 3.02 10*6/uL Low 4.40 - 5.9 0 10*6/uL [facility] WBC (Bld) [#/Vol] 7 10*3/uL 3.6 - 10.7 10*3/uL [facility] COMPREHENSIVE METABOLIC PANE Victor M 03-16-2025 Albumin [Mass/Vol] 2.0 g/dL Low 3.5-5.0 [facility] Comment on above: Performed By: #### L AB17, [id number] ####Circuit Court Magistrate: DOMENICA JARA ([id number])[facility])[address] [place] [address] [place] ALP [Catalytic activity/Vol] 194 U/L High 40-150 [facility] Comment on above: Performed By: #### L AB17, [id number] ####Circuit Court Magistrate: DOMENICA JARA ([id number])[facility])[address] [place] [address] ALT [Catalytic activity/Vol] 13 U/L Normal <40 [facility] Comment on above: Performed By: #### L AB17, [id number] ####Circuit Court Magistrate: DOMENICA JARA ([id number])[facility])[address] [place] [address] Anion gap [Moles/Vol] 9 mmol/L Normal 3-13 [facility] Comment on above: Performed By: #### L AB17, [id number] ####Circuit Court Magistrate: DOMENICA JARA ([id number])[facility])[address] [place] [address] AST [Catalytic activity/Vol] 47 U/L High <34 [facility] Comment on above: Performed By: #### L AB17, [id number] ####Circuit Court Magistrate: DOMENICA JARA ([id number])[facility])[address] [place] [address] Bilirubin [Mass/Vol] 0.9 mg/dL Normal <1.2 [facility] Comment on above: Performed By: #### L AB17, [id number] ####Circuit Court Magistrate: DOMENICA JARA ([phone])[facility])[address] [place] [address] Calcium [Mass/Vol] 9.1 mg/dL Normal 8.4-10.2 [facility] Comment on above: Performed By: #### L AB17, [id number] ####Circuit Court Magistrate: DOMENICA JARA ([phone])[facility])[address] [place] [address] [place] Chloride [Moles/Vol] 104 mmol/L Normal 98-107 [facility] Comment on above: Performed By: #### L AB17, [id number] ####Circuit Court Magistrate: DOMENICA JARA ([phone])[facility])[address] [place] [address] CO2 [Moles/Vol] 26 mmol/L Normal 22-29 [facility] Comment on above: Performed By: #### L AB17, [id number] ####Circuit Court Magistrate: DOMENICA JARA ([id number])[facility])[address] [place] [address] Creatinine [Mass/Vol] 2.35 mg/dL High 0.72-1.25 [facility] Comment on above: Performed By: #### L AB17, [id number] ####Circuit Court Magistrate: DOMENICA JARA ([id number])[facility])[address] [place] [address] GLOMERULAR FILTRATION RATE ML/MIN/1.73 SQ M.PREDICTED 31.1 mL/min/1.73m*2 Low >60.0 [facility] Comment on above: Result Comment: Calc ulation based on the Chronic Kidney Disease Epidemiology Collaboration (CKD-EPI) equation refit without adjustment for race Performed By: #### L AB17, [id number] ####Circuit Court Magistrate: DOMENICA JARA ([phone])[facility])[address] [place] [address] Glucose [Mass/Vol] 83 mg/dL Normal 74-100 [facility] Comment on above: Performed By: #### L AB17, [id number] ####Circuit Court Magistrate: DOMENICA JARA ([phone])[facility])[address] [place] [address] Potassium [Moles/Vol] 4.1 mmol/L Normal 3.5-5.1 [facility] Comment on above: Result Comment: [facility] potassium values may be up to 0.5 mmol/L lower than serum values. Performed By: #### L AB17, [id number] ####Circuit Court Magistrate: DOMENICA JARA ([id number])[facility])[address] [place] [address] Protein [Mass/Vol] 7.3 g/dL Normal 6.4-8.3 [facility] Comment on above: Performed By: #### L AB17, [id number] ####Circuit Court Magistrate: DOMENICA JARA ([id number])[facility])[address] [place] [address] Sodium [Moles/Vol] 139 mmol/L Normal 136-145 [facility] Comment on above: Performed By: #### L AB17, [id number] ####Circuit Court Magistrate: DOMENICA JARA ([id number])[facility])[address] [place] [address] Urea nitrogen [Mass/Vol] 18 mg/dL Normal 9-23 [facility] Comment on above: Performed By: #### L AB17, [id number] ####Circuit Court Magistrate: DOMENICA JARA ([id number])[facility])[address] [place] [address] Comprehensive metabolic 1998 panelon 03-16-2025 Albumin [Mass/Vol] 2 g/dL Low 3.5 - 5.0 g/dL [facility] ALP [Catalytic activity/Vol] 194 U/L High 40 - 150 U/L [facility] ALT [Catalytic activity/Vol] 13 U/L [facility] - 40 U/L [facility] Anion gap [Moles/Vol] 9 mmol/L 3 - 13 mmol/L [facility] AST [Catalytic activity/Vol] 47 U/L High NINF - 34 U/L [facility] Bilirubin [Mass/Vol] 0.9 mg/dL NINF - 1.2 mg/dL [facility] Calcium [Mass/Vol] 9.1 mg/dL 8.4 - 10. 2 mg/dL [facility] Chloride [Moles/Vol] 104 mmol/L 98 - 10 7 mmol/L [facility] CO2 [Moles/Vol] 26 mmol/L 22 - 29 mmol/L [facility] Creatinine [Mass/Vol] 2.35 mg/dL High 0.72 - 1.25 mg/dL [facility] GFR/1.73 sq M.predicted (S/P/Bld) [Vol rate/Area] 31.1 mL/min Low - PINF [facility] Comment on above: Calculation based on the Chronic Kidney Disease Epidemiology Collaboration (CKD-EPI) equation refit without adjustment for race Glucose [Mass/Vol] 83 mg/dL 74 - 100 mg/dL [facility] Interpretation and review of laboratory results Abnormal [facility] Potassium [Moles/Vol] 4.1 mmol/L 3.5 - 5.1 mmol/L [facility] Comment on above: Plasma potassium macey ues may be up to 0.5 mmol/L lower than serum values. Protein [Mass/Vol] 7.3 g/dL 6.4 - 8.3 g/dL [facility] Sodium [Moles/Vol] 139 mmol/L 136 - 145 mmol/L [facility] Urea nitrogen [Mass/Vol] 18 mg/dL 9 - 23 mg/d L [facility] Laboratory - Chemistry and C hemistry - challengeon 03-16-2025 Magnesium [Mass/Vol] 2 mg/dL 1.6 - 2 .6 mg/dL [facility] Laboratory - Coagulationon 0 03-16-2025 PT Coag (Bld) [Time] 17.3 s High 9.0 - 12.0 s [facility] MAGNESIUMon 03-16-2025 Magnesium [Mass/Vol] 2.0 mg/dL Normal 1.6-2.6 [facility] [employer] [facility] Comment on above: Result Comment: ARPAN Kaplan COMMENTS:Higher values can be expected in females during menses. Performed By: #### L AB17, [id number] ####Circuit Court Magistrate: DOMENICA JARA ([phone])[address] Magnesium [Mass/Vol]on 03-16 Interpretation and review of laboratory results Normal [facility] Higher values can be expected in females during menses. [facility] No Panel Informationon 03-16 [facility] [employer] PROTHROMBIN TIMEon INR Coag (PPP) [Relative time] 1.7 {INR} High 0.9-1.1 [facility] [employer] [facility] Comment on above: Result Comment: Vaughn mmended [...] Myocardial Infarction Performed By: #### L [id number] ####Circuit Court Magistrate: DOMENICA JARA ([phone])[facility] ([facility])[address] [place] [address] PT Coag (PPP) [Time] 17.3 s High 9.0-12.0 [facility] Comment on above: Performed By: #### L AB320 ####Circuit Court Magistrate: DOMENICA JARA ([id number])[facility] [place] [address] PT Coag (Bld) [Time]on 03-16 INR Coag (PPP) [Relative time] 1.7 {INR} High 0.9 - 1.1 [facility] Comment on above: Recommended Anticoag ulant Therapy: [...] Interpretation and review of laboratory results Abnormal [facility] Progress Noteon 03-16-2025 Progress Note Normal [facility] Progress Note Normal [facility] Progress Note Normal [facility] Progress Note Normal [facility] Progress Note Normal [facility] 30on 03-15-2025 30 Normal [facility] 30 Normal [facility] [id number] 03-15-2025 [id number] Normal [facility] CBC (HEMOGRAM)on 03-15-2025 Erythrocyte distribution width (RBC) [Ratio] 21.3 % High 11.5-15.0 [facility] Comment on above: Performed By: #### L [id number] ####Circuit Court Magistrate: DOMENICA JARA ([phone])[facility])[address] [place] [address] Hematocrit (Bld) [Volume fraction] 30.1 % Low 40.0-52.0 [facility] Comment on above: Performed By: #### L [id number] ####Circuit Court Magistrate: DOMENICA JARA ([phone])[facility])[address] [place] [address] Hemoglobin (Bld) [Mass/Vol] 9.2 g/dL Low 13.0-18.0 [facility] Comment on above: Performed By: #### L [id number] ####Circuit Court Magistrate: DOMENICA JARA ([id number])[facility])[address] [place] [address] MCH (RBC) [Entitic mass] 30.5 pg Normal 26.0-34.0 [facility] Comment on above: Performed By: #### L [id number] ####Circuit Court Magistrate: DOMENICA JARA ([id number])[facility])[address] [place] [address] MCHC 30.6 % Normal 30.5-36.0 [facility] Comment on above: Performed By: #### L [id number] ####Circuit Court Magistrate: DOMENICA JARA ([id number])[facility])[address] [place] [address] MCV (RBC) [Entitic vol] 99.7 fL High 77.0-99.0 S [facility] Comment on above: Performed By: #### L [id number] ####Circuit Court Magistrate: DOMENICA JARA ([id number])[facility])[address] [place] [address] Platelet mean volume (Bld) [Entitic vol] 9.0 fL Normal 9.0-12.7 [facility] Comment on above: Performed By: #### L [id number] ####Circuit Court Magistrate: DOMENICA JARA ([phone])[facility])[address] [place] [address] [place] Platelets (Bld) [#/Vol] 392 10*3/uL Normal 140-440 [facility] Comment on above: Performed By: #### L [id number] ####Circuit Court Magistrate: DOMENICA JARA ([id number])[facility])[address] [place] [address] RBC (Bld) [#/Vol] 3.02 10*6/uL Low 4.40-5.90 [facility] Comment on above: Performed By: #### L [id number] ####Circuit Court Magistrate: DOMENICA JARA ([id number])[facility])[address] [place] [address] WBC (Bld) [#/Vol] 6.7 10*3/uL Normal 3.6-10.7 [facility] Comment on above: Performed By: #### L AB294 ####Circuit Court Magistrate: DOMENICA JARA ([phone])[facility])[address] [place] [address] CBC panel Auto (Bld)on 03-15 Erythrocyte distribution width (RBC) [Ratio] 21.3 % High 11.5 - 15.0 % [facility] Hematocrit (Bld) [Volume fraction] 30.1 % Low 40.0 - 52.0 % [facility] Hemoglobin (Bld) [Mass/Vol] 9.2 g/dL Low 13.0 - 18.0 g/dL [facility] Interpretation and review of laboratory results Abnormal [facility] MCH (RBC) [Entitic mass] 30.5 pg 26. 0 - 34.0 pg [facility] MCHC (RBC) [Mass/Vol] 30.6 % 30.5 - 36.0 % [facility] MCV (RBC) [Entitic vol] 99.7 fL High 77.0 - 99.0 fL [facility] Platelet mean volume (Bld) [Entitic vol] 9 fL 9.0 - 12.7 fL [facility] Platelets (Bld) [#/Vol] 392 10*3/uL 140 - 440 10*3/uL [facility] RBC (Bld) [#/Vol] 3.02 10*6/uL Low 4.40 - 5.9 0 10*6/uL [facility] WBC (Bld) [#/Vol] 6.7 10*3/uL 3.6 - 10.7 10*3/uL [facility] COMPREHENSIVE METABOLIC PANE Victor M 03-15-2025 Albumin [Mass/Vol] 2.0 g/dL Low 3.5-5.0 [facility] Comment on above: Performed By: #### L AB103, LAB17 ####Circuit Court Magistrate: DOMENICA JARA ([id number])[facility] ([facility])[address] [place] [address] ALP [Catalytic activity/Vol] 201 U/L High 40-150 [facility] Comment on above: Performed By: #### L AB103, LAB17 ####Circuit Court Magistrate: DOMENICA JARA ([id number])[facility] ([facility])[address] [place] [address] ALT [Catalytic activity/Vol] 14 U/L Normal <40 [facility] Comment on above: Performed By: #### L AB103, LAB17 ####Circuit Court Magistrate: DOMENICA JARA ([id number])[facility] ([facility])[address] [place] [address] Anion gap [Moles/Vol] 11 mmol/L Normal 3-13 [facility] Comment on above: Performed By: #### L AB103, LAB17 ####Circuit Court Magistrate: DOMENICA JARA ([id number])[facility])[address] [place] [address] AST [Catalytic activity/Vol] 49 U/L High <34 [facility] Comment on above: Performed By: #### L AB103, LAB17 ####Circuit Court Magistrate: DOMENICA JARA ([id number])[facility])[address] [place] [address] Bilirubin [Mass/Vol] 0.8 mg/dL Normal <1.2 [facility] Comment on above: Performed By: #### L AB103, LAB17 ####Circuit Court Magistrate: DOMENICA JARA ([id number])[facility])[address] [place] [address] Calcium [Mass/Vol] 9.2 mg/dL Normal 8.4-10.2 [facility] Comment on above: Performed By: #### L AB103, LAB17 ####Circuit Court Magistrate: DOMENICA JARA ([id number])[facility])[address] [place] [address] Chloride [Moles/Vol] 100 mmol/L Normal 98-107 [facility] Comment on above: Performed By: #### L AB103, LAB17 ####Circuit Court Magistrate: DOMENICA JARA ([id number])[facility])[address] [place] [address] CO2 [Moles/Vol] 28 mmol/L Normal 22-29 [facility] Comment on above: Performed By: #### L AB103, LAB17 ####Circuit Court Magistrate: DOMENICA JARA ([id number])[facility])[address] [place] [address] Creatinine [Mass/Vol] 3.13 mg/dL High 0.72-1.25 [facility] Comment on above: Performed By: #### L AB103, LAB17 ####Circuit Court Magistrate: DOMENICA JARA ([id number])[facility])[address] [place] [address] GLOMERULAR FILTRATION RATE ML/MIN/1.73 SQ M.PREDICTED 22.0 mL/min/1.73m*2 Low >60.0 [facility] Comment on above: Result Comment: Calc ulation based on the Chronic Kidney Disease Epidemiology Collaboration (CKD-EPI) equation refit without adjustment for race Performed By: #### L AB103, LAB17 ####Circuit Court Magistrate: DOMENICA JARA ([id number])[facility])[address] [place] [address] Glucose [Mass/Vol] 91 mg/dL Normal 74-100 [facility] Comment on above: Performed By: #### L AB103, LAB17 ####Circuit Court Magistrate: DOMENICA [id number])[facility])[address] [place] [address] Potassium [Moles/Vol] 4.5 mmol/L Normal 3.5-5.1 [facility] Comment on above: Result Comment: [facility] potassium values may be up to 0.5 mmol/L lower than serum values. Performed By: #### L AB103, LAB17 ####Circuit Court Magistrate: DOMENICA JARA ([id number])[facility])[address] [place] [address] Protein [Mass/Vol] 7.6 g/dL Normal 6.4-8.3 [facility] Comment on above: Performed By: #### L AB103, LAB17 ####Circuit Court Magistrate: DOMENICA JARA ([phone])[facility] ([facility])[address] [place] [address] Sodium [Moles/Vol] 139 mmol/L Normal 136-145 [facility] Comment on above: Performed By: #### L AB103, LAB17 ####Circuit Court Magistrate: DOMEINCA JARA ([id number])[facility] ([facility])[address] [place] [address] Urea nitrogen [Mass/Vol] 30 mg/dL High 9-23 [facility] Comment on above: Performed By: #### L AB103, LAB17 ####Circuit Court Magistrate: DOMENICA JARA ([id number])[facility] ([facility])[address] [place] [address] Comprehensive metabolic 1998 panelOrdered By: Jenni Romano on 03-15-2025 Albumin [Mass/Vol] 2 g/dL Low 3.5 - 5.0 g/dL [facility] ALP [Catalytic activity/Vol] 201 U/L High 40 - 150 U/L [facility] ALT [Catalytic activity/Vol] 14 U/L NINF - 40 U/L [facility] Anion gap [Moles/Vol] 11 mmol/L 3 - 13 mmol/L [facility] AST [Catalytic activity/Vol] 49 U/L High NINF - 34 U/L [facility] Bilirubin [Mass/Vol] 0.8 mg/dL NINF - 1.2 mg/dL [facility] Calcium [Mass/Vol] 9.2 mg/dL 8.4 - 10. 2 mg/dL [facility] Chloride [Moles/Vol] 100 mmol/L 98 - 10 7 mmol/L [facility] CO2 [Moles/Vol] 28 mmol/L 22 - 29 mmol/L [facility] Creatinine [Mass/Vol] 3.13 mg/dL High 0.72 - 1.25 mg/dL [facility] GFR/1.73 sq M.predicted (S/P/Bld) [Vol rate/Area] 22 mL/min Low - PINF [facility] Comment on above: Calculation based on the Chronic Kidney Disease Epidemiology Collaboration (CKD-EPI) equation refit without adjustment for race Glucose [Mass/Vol] 91 mg/dL 74 - 100 mg/dL [facility] Interpretation and review of laboratory results Abnormal [facility] Potassium [Moles/Vol] 4.5 mmol/L 3.5 - 5.1 mmol/L [facility] Comment on above: Plasma potassium macey ues may be up to 0.5 mmol/L lower than serum values. Protein [Mass/Vol] 7.6 g/dL 6.4 - 8.3 g/dL [facility] Sodium [Moles/Vol] 139 mmol/L 136 - 145 mmol/L [facility] Urea nitrogen [Mass/Vol] 30 mg/dL High 9 - 23 mg/d L [facility] Consulton 03-15-2025 Consult Normal [facility] Consult Normal [facility] FREE T4on 03-15-2025 Free T4 [Mass/Vol] 0.89 ng/dL Normal 0.70-1.48 [facility] Comment on above: Performed By: #### L AB127 ####Circuit Court Magistrate: DOMENICA JARA ([id number])[facility] ([facility] Free T4 [Mass/Vol]on 025 Free T4 Dialysis [Mass/Vol] 0.89 ng/dL 0.70 - 1.48 ng/dL [facility] Interpretation and review of laboratory results Normal [facility] Laboratory - Chemistry and C hemistry - challengeon 03-15-2025 Magnesium [Mass/Vol] 2 mg/dL 1.6 - 2 .6 mg/dL [facility] Laboratory - Coagulationon 0 03-15-2025 PT Coag (Bld) [Time] 17.9 s High 9.0 - 12.0 s [facility] MAGNESIUMon 03-15-2025 Magnesium [Mass/Vol] 2.0 mg/dL Normal 1.6-2.6 [facility] Comment on above: Result Comment: ORDE R COMMENTS:Higher values can be expected in females during menses. Performed By: #### L AB103, LAB17 ####Circuit Court Magistrate: DOMENICA JARA ([id number])[facility])[address] [place] [address] Magnesium [Mass/Vol]on 03-15 Interpretation and review of laboratory results Normal [facility] Higher values can be expected in females during menses. [facility] Nursing Noteon 03-15-2025 Nursing Note Normal [facility] Nursing Note Normal [facility] PROTHROMBIN TIMEon INR Coag (PPP) [Relative time] 1.7 {INR} High 0.9-1.1 [facility] Comment on above: Result Comment: Vaughn [...] Myocardial Infarction Performed By: #### L AB320 ####Circuit Court Magistrate: DOMENICA JARA ([id number])[facility] ([facility])[address] [place] [address] [place] PT Coag (PPP) [Time] 17.9 s High 9.0-12.0 [facility] Comment on above: Performed By: #### L AB320 ####Circuit Court Magistrate: DOMENICA JARA ([id number])[facility] ([facility])[address] [place] [address] [place] PT Coag (Bld) [Time]on 03-15 INR Coag (PPP) [Relative time] 1.7 {INR} High 0.9 - 1.1 [facility] Comment on above: Recommended Anticoag ulant Therapy: [...] Interpretation and review of laboratory results Abnormal [facility] Progress Noteon 03-15-2025 Progress Note Normal [facility] Progress Note Normal [facility] Progress Note Normal [facility] Progress Note Normal [facility] Prothrombin Time w/INRon INR Normal [facility] Comment on above: Order Comment: 412.2 Result Comment: [facility] Performed By: #### L 500.4050, L300.3900, L100.0100 #### [facility] [address] [place], [address] PROTIME Normal 11.7-14.9 [facility] Comment on above: Order Comment: 412.2 Result Comment: [facility] Performed By: #### L 500.4050, L300.3900, L100.0100 #### [facility] [address] [place], [address] [place] Lower extremity arteryOrd ered By: Sulaiman Mullen on 03-15-2025 Right arm BP 130 mmHg [facility] Work Phone: [place] Lower extremity arteryon 03-15-2025 [...] feet. CV CPACS 30on 03-14-2025 30 Normal [facility] [id number] 03-14-2025 [id number] Normal [facility] BASIC METABOLIC PANELon - Anion gap [Moles/Vol] 11 mmol/L Normal 3-13 [facility] Comment on above: Performed By: #### L AB15, [id number], LAB18 ####Circuit Court Magistrate: DOMENICA JARA ([id number])[address] Calcium [Mass/Vol] 10.1 mg/dL Normal 8.4-10.2 [facility] Comment on above: Performed By: #### L AB15, [id number], LAB18 ####Circuit Court Magistrate: DOMENICA JARA ([phone])[facility] ([facility])[address] [place] [address] Chloride [Moles/Vol] 102 mmol/L Normal 98-107 [facility] Comment on above: Performed By: #### L AB15, [id number], LAB18 ####Circuit Court Magistrate: DOMENICA JARA ([id number])[facility] ([facility])[address] CO2 [Moles/Vol] 28 mmol/L Normal 22-29 [facility] Comment on above: Performed By: #### L AB15, [id number], LAB18 ####Circuit Court Magistrate: DOMENICA JARA ([id number])[facility] ([facility])[address] [place] [address] Creatinine [Mass/Vol] 4.96 mg/dL High 0.72-1.25 [facility] Comment on above: Performed By: #### L AB15, [id number], LAB18 ####Circuit Court Magistrate: DOMENICA JARA ([id number])[facility] ([facility])[address] [place] [address] GLOMERULAR FILTRATION RATE ML/MIN/1.73 SQ M.PREDICTED 12.7 mL/min/1.73m*2 Low >60.0 [facility] Comment on above: Result Comment: Calc ulation based on the Chronic Kidney Disease Epidemiology Collaboration (CKD-EPI) equation refit without adjustment for race Performed By: #### L AB15, [id number], LAB18 ####Circuit Court Magistrate: DOMENICA JARA ([id number])[facility])[address] [place] [address] Glucose [Mass/Vol] 99 mg/dL Normal 74-100 [facility] Comment on above: Performed By: #### L AB15, [id number], LAB18 ####Circuit Court Magistrate: DOMENICA JARA ([id number])[facility])[address] [place] [address] Potassium [Moles/Vol] 5.2 mmol/L High 3.5-5.1 [facility] Comment on above: Result Comment: [facility] potassium values may be up to 0.5 mmol/L lower than serum values. Performed By: #### L AB15, [id number], LAB18 ####Circuit Court Magistrate: DOMENICA JARA ([id number])[facility] ([facility])[address] [place] [address] Sodium [Moles/Vol] 141 mmol/L Normal 136-145 [facility] Comment on above: Performed By: #### L AB15, [id number], LAB18 ####Circuit Court Magistrate: DOMENICA JARA ([id number])[facility])[address] [place] [address] Urea nitrogen [Mass/Vol] 57 mg/dL High 9-23 [facility] Comment on above: Performed By: #### L AB15, [id number], LAB18 ####Circuit Court Magistrate: DOMENICA JARA ([id number])[facility] ([facility])[address] [place] [address] Basic metabolic 1998 panelOr dered By: Brandy Ross on 03-14-2025 Anion gap [Moles/Vol] 11 mmol/L 3 - 13 mmol/L [facility] Calcium [Mass/Vol] 10.1 mg/dL 8.4 - 10. 2 mg/dL [facility] Chloride [Moles/Vol] 102 mmol/L 98 - 10 7 mmol/L [facility] CO2 [Moles/Vol] 28 mmol/L 22 - 29 mmol/L [facility] Creatinine [Mass/Vol] 4.96 mg/dL High 0.72 - 1.25 mg/dL [facility] GFR/1.73 sq M.predicted (S/P/Bld) [Vol rate/Area] 12.7 mL/min Low - PINF [facility] Comment on above: Calculation based on the Chronic Kidney Disease Epidemiology Collaboration (CKD-EPI) equation refit without adjustment for race Glucose [Mass/Vol] 99 mg/dL 74 - 100 mg/dL [facility] Interpretation and review of laboratory results Abnormal [facility] Potassium [Moles/Vol] 5.2 mmol/L High 3.5 - 5.1 mmol/L [facility] Comment on above: Plasma potassium macey ues may be up to 0.5 mmol/L lower than serum values. Sodium [Moles/Vol] 141 mmol/L 136 - 145 mmol/L [facility] Urea nitrogen [Mass/Vol] 57 mg/dL High 9 - 23 mg/d L [facility] Consulton 03-14-2025 Consult Normal [facility] Consult Normal [facility] Consult Normal [facility] Consult Normal [facility] ECG 12-LEADon 03-14-2025 ECG 12-LEAD IMPRESSION: Atrial flutter IVCD, consider RBBB Probable lateral infarct, age indeterminate Anteroseptal infarct, 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 Electronically Signed On 03-14-2025 15:38:49 EDT by Ryan Magdaleno Normal [facility] LIPID PANELon 03-14-2025 Cholesterol [Mass/Vol] 159 mg/dL Normal <200 [facility] Comment on above: Performed By: #### L AB15, [id number], LAB18 ####Circuit Court Magistrate: DOMENICA JARA ([id number])[facility] ([facility])[address] [place] [address] Cholesterol in HDL [Mass/Vol] 30 mg/dL Low >=60 [facility] Comment on above: Performed By: #### Tameka AB15, [id number], LAB18 ####Circuit Court Magistrate: DOMENICA JARA ([id number])[facility] ([facility])[address] [place] [address] Cholesterol.total/Choles terol in HDL [Mass ratio] 5 {ratio} Normal [facility] Comment on above: Result Comment: Ref Range:< 3 Low Risk for CHD3-6 Mod Risk for CHD> 6 High Risk for CHD Performed By: #### Tameka ISAAC15, [id number], LAB18 ####Circuit Court Magistrate: DOMENICA JARA ([id number])[facility] ([facility])[address] [place] [address] [place] LOW DENSITY LIPOPROTEIN 109 mg/dL High 0-<100 [facility] Comment on above: Performed By: #### Tameka AB15, [id number], LAB18 ####Circuit Court Magistrate: DOMENICA JARA ([id number])[facility] ([facility])[address] [place] [address] [place] NON-HDL CHOLESTEROL, CALCULATED 129 Normal <130 [facility] Comment on above: Performed By: #### L AB15, [id number], LAB18 ####Circuit Court Magistrate: DOMENICA JARA ([id number])[facility] ([facility])[address] [place] [address] Triglyceride [Mass/Vol] 98 mg/dL Normal <150 [facility] Comment on above: Performed By: #### L AB15, [id number], LAB18 ####Circuit Court Magistrate: DOMENICA JARA ([phone])[facility])[address] [place] [address] VERY LOW DENSITY LIPOPROTEIN, CALCULATED 20 mg/dL Normal <=30 [facility] Comment on above: Performed By: #### L AB15, [id number], LAB18 ####Circuit Court Magistrate: DOMENICA JARA ([id number])[facility])[address] [place] [address] Laboratory - Chemistry and C hemistry - challengeon 03-14-2025 Magnesium [Mass/Vol] 2.2 mg/dL 1.6 - 2 .6 mg/dL [facility] Lipid 1996 panelon 5 Cholesterol [Mass/Vol] 159 mg/dL NINF - 200 mg/dL [facility] Cholesterol in HDL [Mass/Vol] 30 mg/dL Low 60 - PINF mg/dL [facility] Cholesterol in LDL [Mass/Vol] 109 mg/dL High 0 - <100 [facility] Cholesterol.total/Choles terol in HDL [Mass ratio] 5 {ratio} [facility] Comment on above: Ref Range: < 3 Low Risk for CHD 3-6 Mod Risk for CHD > 6 High Risk for CHD Interpretation and review of laboratory results Abnormal [facility] NON-HDL CHOLESTEROL, CALCULATED 129 NINF - 130 [facility] Triglyceride [Mass/Vol] 98 mg/dL NINF - 150 mg/dL [facility] VERY LOW DENSITY LIPOPROTEIN, CALCULATED 20 mg/dL NINF - 30 mg/dL [facility] MAGNESIUMon 03-14-2025 Magnesium [Mass/Vol] 2.2 mg/dL Normal 1.6-2.6 [facility] Comment on above: Result Comment: TRAVISE R COMMENTS:Higher values can be expected in females during menses. Performed By: #### L AB15, [id number], LAB18 ####Circuit Court Magistrate: DOMENICA JARA ([phone])[facility] ([facility])[address] [place] [address] Magnesium [Mass/Vol]on 03-14 Interpretation and review of laboratory results Normal [facility] Higher values can be expected in females during menses. [facility] No Panel InformationOrdered By: Ryan Magdaleno on 03-14-2025 P [place] 0 degrees [facility] Work Phone: MS Interval 0 ms [employer] Phone: QRS [place] 146 degrees [facility] Phone: QRSD Interval 127 ms [facility] [employer] ([employer] Work Phone: QT Interval 397 ms [facility] Phone: QTC Interval 542 ms [facility] Work Phone: T Wave [place] -57 degrees [employer] Phone: [employer] Phone: No Panel Informationon 03-14 Atrial flutter IVCD, consider RBBB Probable lateral infarct, age indeterminate Anteroseptal infarct, 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 Electronically Signed On 03-14-2025 15:38:49 EDT by Ryan Yeboah MD - 03/14/2025 IMPRESSION: Atrial flutter IVCD, consider RBBB Probable lateral infarct, age indeterminate Anteroseptal infarct, 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 Electronically Signed On 03-14-2025 15:38:49 EDT by Ryan Magdaleno [facility] Nursing Noteon 03-14-2025 Nursing Note Normal [facility] Progress Noteon 03-14-2025 Progress Note Normal [facility] Progress Note Normal [facility] Progress Note Normal [facility] Vital signsOrdered By: Ryan Magdaleno on 03-14-2025 Heart rate 112 /min bpm [facility] [employer] Phone: 30on 03-13-2025 30 Normal [facility] BLOOD GAS, VENOUSon 03-13-20 25 AMOUNT OF OXYGEN Normal [facility] Comment on above: Result Comment: ARPAN R COMMENTS:Assessment of oxygenation is best done with an arterial blood gas determination. Reference ranges for pO2, bicarbonate, and base excess are for mixed venous blood. Specimens drawn from a peripheral vein will often have higher values. Performed By: #### L AB79 ####Circuit Court Magistrate: FENG CONSTANTINO ([id number])[facility] Base excess Calc (BldV) [Moles/Vol] 2.2 mmol/L Normal -3.0-3.0 [facility] Comment on above: Performed By: #### L AB79 ####Circuit Court Magistrate: FENG CONSTANTINO ([id number])[facility] ([facility])[address] CO2 [Moles/Vol] 28.9 mmol/L Normal 23.0-30.0 [facility] Comment on above: Performed By: #### L AB79 ####Circuit Court Magistrate: FENG CONSTANTINO ([phone])[facility] ([facility])[address] HCO3 (Bld) [Moles/Vol] 27.5 mmol/L Normal 21.0-30.[address] [facility] Comment on above: Performed By: #### L AB79 ####Circuit Court Magistrate: FENG CONSTANTINO ([id number])[facility] ([facility])[address] [place] [address] [place] Hemoglobin (Bld) [Mass/Vol] 11.8 g/dL Low Screen only [facility] Comment on above: Performed By: #### L AB79 ####Circuit Court Magistrate: FENG CONSTANTINO ([id number])[facility] ([facility])[address] OXYGEN (MM HG) IN VENOUS BLOOD 33.5 mm Hg Normal [facility] Comment on above: Performed By: #### L AB79 ####Circuit Court Magistrate: FENG CONSTANTINO ([id number])[facility] ([facility])[address] OXYGEN SATURATION (%) IN VENOUS BLOOD 57.2 % Normal [facility] Comment on above: Performed By: #### L AB79 ####Circuit Court Magistrate: FENG CONSTANTINO ([id number])[facility] ([facility])[address] PCO2, JOHNATHAN 45.6 mm Hg Normal 38.0-56.0 [facility] Comment on above: Performed By: #### L AB79 ####Circuit Court Magistrate: FENG CONSTANTINO ([id number])[facility] ([facility])[address] PH VENOUS 7.398 Normal 7.320-7.420 [facility] Comment on above: Performed By: #### L AB79 ####Circuit Court Magistrate: FENG CONSTANTINO ([id number])[facility] ([facility])[address] SOURCE OF OXYGEN Nasal Cannula (LPM) Normal [facility] Comment on above: Performed By: #### L [id number] ####Circuit Court Magistrate: FENG DOUGIE ([phone])[facility] ([facility])[address] CBC W Auto Differential pane l (Bld)Ordered By: Lakisha Paula on 03-13-2025 Basophils (Bld) [#/Vol] 0.1 10*3/uL 0.0 - 0.2 10*3/uL [facility] Basophils/100 WBC (Bld) 0.6 % 0.0 - 2.0 % [facility] Eosinophils (Bld) [#/Vol] 0.2 10*3/uL 0.0 - 0.5 10*3/uL [facility] Eosinophils/100 WBC (Bld) 2 % 0.0 - 6.0 % [facility] Erythrocyte distribution width (RBC) [Ratio] 21.2 % High 11.5 - 15.0 % [facility] Hematocrit (Bld) [Volume fraction] 28.4 % Low 40.0 - 52.0 % [facility] Hemoglobin (Bld) [Mass/Vol] 8.5 g/dL Low 13.0 - 18.0 g/dL [facility] Immature granulocytes (Bld) [#/Vol] 0 10*3/uL NINF - 0.1 10*3/uL [facility] Immature granulocytes/100 WBC (Bld) 0.5 % 0.0 - 2.0 % [facility] Interpretation and review of laboratory results Abnormal [facility] Lymphocytes (Bld) [#/Vol] 1.2 10*3/uL 1.0 - 4.3 10*3/uL [facility] Lymphocytes/100 WBC (Bld) 15.4 % 15.0 - 45.0 % [facility] MCH (RBC) [Entitic mass] 29.7 pg 26. 0 - 34.0 pg [facility] MCHC (RBC) [Mass/Vol] 29.9 % Low 30.5 - 36.0 % [facility] MCV (RBC) [Entitic vol] 99.3 fL High 77.0 - 99.0 fL [facility] Monocytes (Bld) [#/Vol] 1.4 10*3/uL High 0.0 - 0.9 10*3/uL [facility] Monocytes/100 WBC (Bld) 16.9 % High 5.0 - 13.0 % [facility] Neutrophils (Bld) [#/Vol] 5.2 10*3/uL 1.8 - 7.5 10*3/uL [facility] Neutrophils/100 WBC (Bld) 64.6 % 38.0 - 82.0 % [facility] Nucleated RBC/100 WBC (Bld) [Ratio] 0 % [facility] Platelet mean volume (Bld) [Entitic vol] 9.2 fL 9.0 - 12.7 fL [facility] Platelets (Bld) [#/Vol] 392 10*3/uL 140 - 440 10*3/uL [facility] RBC (Bld) [#/Vol] 2.86 10*6/uL Low 4.40 - 5.9 0 10*6/uL [facility] WBC (Bld) [#/Vol] 8 10*3/uL 3.6 - 10.7 10*3/uL [facility] CBC WITH AUTO DIFFERENTIALon 03-13-2025 Basophils (Bld) [#/Vol] 0.1 10*3/uL Normal 0.0-0.2 [facility] Comment on above: Performed By: #### L [id number] ####Circuit Court Magistrate: FENG CONSTANTINO ([id number])[facility] ([facility])[address] Basophils/100 WBC (Bld) 0.6 % Normal 0.0-2.[address] [facility] Comment on above: Performed By: #### L [id number] ####Circuit Court Magistrate: FENG CONSTANTINO ([id number])[facility] ([facility])[address] Eosinophils (Bld) [#/Vol] 0.2 10*3/uL Normal 0.0-0.5 [facility] Comment on above: Performed By: #### L [id number] ####Circuit Court Magistrate: FENG CONSTANTINO ([id number])[facility] ([facility])[address] Eosinophils/100 WBC (Bld) 2.0 % Normal 0.0-6.0 [facility] Comment on above: Performed By: #### L [id number] ####Circuit Court Magistrate: FENG CONSTANTINO ([id number])[facility] ([facility])[address] [place] [address] Erythrocyte distribution width (RBC) [Ratio] 21.2 % High 11.5-15.0 [facility] Comment on above: Performed By: #### L [id number] ####Circuit Court Magistrate: FENG CONSTANTINO ([phone])[facility] ([facility])[address] [place] [address] Hematocrit (Bld) [Volume fraction] 28.4 % Low 40.0-52.0 [facility] Comment on above: Performed By: #### L [id number] ####Circuit Court Magistrate: FENG CONSTANTINO ([id number])[facility] ([facility])[address] Hemoglobin (Bld) [Mass/Vol] 8.5 g/dL Low 13.0-18.0 [facility] Comment on above: Performed By: #### L [id number] ####Circuit Court Magistrate: FENG CONSTANTINO ([id number])[facility] ([facility])[address] IMMATURE GRANS % 0.5 % Normal 0.0-2.0 [facility] Comment on above: Performed By: #### L [id number] ####Circuit Court Magistrate: FENG CONSTANTINO ([id number])[facility] ([facility])[address] IMMATURE GRANS ABSOLUTE 0.0 10*3/uL Normal <0.1 [facility] Comment on above: Performed By: #### L [id number] ####Circuit Court Magistrate: FENG CONSTANTINO ([id number])[facility] ([facility])[address] Lymphocytes (Bld) [#/Vol] 1.2 10*3/uL Normal 1.0-4.3 [facility] Comment on above: Performed By: #### L [id number] ####Circuit Court Magistrate: FENG CONSTANTINO ([phone])[facility] ([facility])[address] Lymphocytes/100 WBC (Bld) 15.4 % Normal 15.0-45.0 [facility] Comment on above: Performed By: #### L [id number] ####Circuit Court Magistrate: FENG CONSTANTINO ([id number])[facility] ([facility])[address] MCH (RBC) [Entitic mass] 29.7 pg Normal 26.0-34.0 [facility] Comment on above: Performed By: #### L [id number] ####Circuit Court Magistrate: FENG CONSTANTINO ([id number])[facility] ([facility])[address] MCHC 29.9 % Low 30.5-36.0 [facility] Comment on above: Performed By: #### L [id number] ####Circuit Court Magistrate: FENG CONSTANTINO ([id number])[facility] ([facility])[address] MCV (RBC) [Entitic vol] 99.3 fL High 77.0-99.0 [facility] Comment on above: Performed By: #### L [id number] ####Circuit Court Magistrate: FENG CONSTANTINO ([id number])[facility] ([facility])[address] Monocytes (Bld) [#/Vol] 1.4 10*3/uL High 0.0-0.9 [facility] Comment on above: Performed By: #### L [id number] ####Circuit Court Magistrate: FENG CONSTANTINO ([id number])[facility] ([facility])[address] Monocytes/100 WBC (Bld) 16.9 % High 5.0-13.0 [facility] Comment on above: Performed By: #### L [id number] ####Circuit Court Magistrate: FENG CONSTANTINO ([id number])[facility] ([facility])[address] NEUTROPHILS ABSOLUTE 5.2 10*3/uL Normal 1.8-7.5 [facility] Comment on above: Performed By: #### L [id number] ####Circuit Court Magistrate: FENG CONSTANTINO ([id number])[facility] ([facility])[address] Neutrophils/100 WBC (Bld) 64.6 % Normal 38.0-82.0 [facility] Comment on above: Performed By: #### L [id number] ####Circuit Court Magistrate: FENG CONSTANTINO ([id number])[facility] ([facility])[address] [place] [address] [place] NRBC 0.0 /100 WBCs Normal 0.0-2.0 [facility] Comment on above: Performed By: #### L [id number] ####Circuit Court Magistrate: FENG CONSTANTINO ([id number])[facility] ([facility])[address] Platelet mean volume (Bld) [Entitic vol] 9.2 fL Normal 9.0-12.7 [facility] Comment on above: Performed By: #### L [id number] ####Circuit Court Magistrate: FENG CONSTANTINO ([id number])[facility] ([facility])[address] Platelets (Bld) [#/Vol] 392 10*3/uL Normal 140-440 [facility] Comment on above: Performed By: #### L [id number] ####Circuit Court Magistrate: FENG CONSTANTINO ([id number])[facility] ([facility])[address] RBC (Bld) [#/Vol] 2.86 10*6/uL Low 4.40-5.90 [facility] Comment on above: Performed By: #### L [id number] ####Circuit Court Magistrate: FENG CONSTANTINO ([id number])[facility] ([facility])[address] WBC (Bld) [#/Vol] 8.0 10*3/uL Normal 3.6-10.7 [facility] Comment on above: Performed By: #### L [id number] ####Circuit Court Magistrate: FENG CONSTANTINO ([phone])[facility] ([facility])[address] COMPREHENSIVE METABOLIC PANE Victor M 03-13-2025 Albumin [Mass/Vol] 1.5 g/dL Low 3.5-5.0 [facility] Comment on above: Performed By: #### L [id number] ####Circuit Court Magistrate: FENG CONSTANTINO ([id number])[facility] ([facility])[address] ALP [Catalytic activity/Vol] 122 U/L Normal 40-150 [facility] Comment on above: Performed By: #### L [id number] ####Circuit Court Magistrate: FENG CONSTANTINO ([id number])[facility] ([facility])[address] [place] [address] [place] ALT [Catalytic activity/Vol] 7 U/L Normal <40 [facility] Comment on above: Performed By: #### L [id number] ####Circuit Court Magistrate: FENG CONSTANTINO ([id number])[facility] ([facility])[address] Anion gap [Moles/Vol] 6 mmol/L Normal 3-13 [facility] Comment on above: Performed By: #### L [id number] ####Circuit Court Magistrate: FENG CONSTANTINO ([id number])[facility] ([facility])[address] AST [Catalytic activity/Vol] 37 U/L High <34 [facility] Comment on above: Performed By: #### L [id number] ####Circuit Court Magistrate: FENG CONSTANTINO ([phone])[facility] ([facility])[address] Bilirubin [Mass/Vol] 0.5 mg/dL Normal <1.2 [facility] Comment on above: Performed By: #### L [id number] ####Circuit Court Magistrate: FENG CONSTANTINO ([phone])[facility] ([facility])[address] Calcium [Mass/Vol] 7.3 mg/dL Low 8.4-10.2 [facility] Comment on above: Performed By: #### L [id number] ####Circuit Court Magistrate: FENG CONSTANTINO ([id number])[facility] ([facility])[address] [place] [address] [place] Chloride [Moles/Vol] 110 mmol/L High 98-107 [facility] Comment on above: Performed By: #### L [id number] ####Circuit Court Magistrate: FENG CONSTANTINO ([id number])[facility] ([facility])[address] [place] [address] [place] CO2 [Moles/Vol] 25 mmol/L Normal 22-29 [facility] Comment on above: Performed By: #### L [id number] ####Circuit Court Magistrate: FENG CONSTANTINO ([id number])[facility])[address] Creatinine [Mass/Vol] 3.32 mg/dL High 0.72-1.25 [facility] Comment on above: Performed By: #### L [id number] ####Circuit Court Magistrate: FENG CONSTANTINO ([id number])[facility])[address] GLOMERULAR FILTRATION RATE ML/MIN/1.73 SQ M.PREDICTED 20.5 mL/min/1.73m*2 Low >60.0 [facility] Comment on above: Result Comment: Calc ulation based on the Chronic Kidney Disease Epidemiology Collaboration (CKD-EPI) equation refit without adjustment for race Performed By: #### L [id number] ####Circuit Court Magistrate: FENG CONSTANTINO ([id number])[facility])[address] Glucose [Mass/Vol] 71 mg/dL Low 74-100 [facility] Comment on above: Performed By: #### L [id number] ####Circuit Court Magistrate: FENG CONSTANTINO ([id number])[facility] ([facility])[address] [place] [address] Potassium [Moles/Vol] 3.5 mmol/L Normal 3.5-5.1 [facility] Comment on above: Result Comment: [facility] potassium values may be up to 0.5 mmol/L lower than serum values. Performed By: #### L [id number] ####Circuit Court Magistrate: FENG CONSTANTINO ([id number])[facility] ([facility])[address] Protein [Mass/Vol] 5.5 g/dL Low 6.4-8.3 [facility] Comment on above: Performed By: #### L [id number] ####Circuit Court Magistrate: FENG CONSTANTINO ([id number])[facility] ([facility])[address] Sodium [Moles/Vol] 141 mmol/L Normal 136-145 [facility] Comment on above: Performed By: #### L [id number] ####Circuit Court Magistrate: FENG CONSTANTINO ([id number])[facility] (SBHL[facility])[address] Urea nitrogen [Mass/Vol] 41 mg/dL High 9-23 [facility] Comment on above: Performed By: #### L [id number] ####Circuit Court Magistrate: FENG CONSTANTINO ([id number])[facility] (SB[facility]AB)[address] CHEST WO IV CONTRASTon CT CHEST WO IV CONTRAST Normal [facility] CT Chest WO contraston 03-13 1. [...] MD Electronically Signed Date/Time: 03/13/2025 12:44 PM [facility] 1965 [id number] Exam Date/Time: 03/13/2025 11:06 Procedure: CT CHEST [...] fracture or destructive osseous lesion is identified. [facility] Bettye Ribera MD - 03/13/2025 Patient Name: [facility]UN SN[facility] 1965 [id number] Exam Date/Time: 03/13/2025 11:06 Procedure: CT CHEST [...] Electronically Signed Date/Time: 03/13/2025 12:44 PM EDT [facility] Radiology Study observation (narrative) [facility] Comprehensive Metabolic Prof ilon 03-13-2025 Bilirubin [Mass/Vol] 0.62 mg/dL Normal 0.00-1.30 [facility] Comment on above: Order Comment: 412.2 Performed By: #### L 500.4050, L300.3900, L100.0100 #### [facility] [address] [place], [place], [id number] Comprehensive metabolic 1998 panelon 03-13-2025 Albumin [Mass/Vol] 1.5 g/dL Low 3.5 - 5.0 g/dL [facility] ALP [Catalytic activity/Vol] 122 U/L 40 - 150 U/L [facility] ALT [Catalytic activity/Vol] 7 U/L NINF - 40 U/L [facility] Anion gap [Moles/Vol] 6 mmol/L 3 - 13 mmol/L [facility] AST [Catalytic activity/Vol] 37 U/L High [facility] - 34 U/L [facility] Bilirubin [Mass/Vol] 0.5 mg/dL NINF - 1.2 mg/dL [facility] Calcium [Mass/Vol] 7.3 mg/dL Low 8.4 - 10. 2 mg/dL [facility] Chloride [Moles/Vol] 110 mmol/L High 98 - 10 7 mmol/L [facility] CO2 [Moles/Vol] 25 mmol/L 22 - 29 mmol/L [facility] Creatinine [Mass/Vol] 3.32 mg/dL High 0.72 - 1.25 mg/dL [facility] GFR/1.73 sq M.predicted (S/P/Bld) [Vol rate/Area] 20.5 mL/min Low - PINF [facility] Comment on above: Calculation based on the Chronic Kidney Disease Epidemiology Collaboration (CKD-EPI) equation refit without adjustment for race Glucose [Mass/Vol] 71 mg/dL Low 74 - 100 mg/dL [facility] Interpretation and review of laboratory results Abnormal [facility] Potassium [Moles/Vol] 3.5 mmol/L 3.5 - 5.1 mmol/L [facility] Comment on above: Plasma potassium macey ues may be up to 0.5 mmol/L lower than serum values. Protein [Mass/Vol] 5.5 g/dL Low 6.4 - 8.3 g/dL [facility] Sodium [Moles/Vol] 141 mmol/L 136 - 145 mmol/L [facility] Urea nitrogen [Mass/Vol] 41 mg/dL High 9 - 23 mg/d L [facility] ECG 12-LEADon 03-13-2025 ECG 12-LEAD Normal [facility] ED Nursing Noteon 03-13-2025 ED Nursing Note When this RN came back from lunch Pt was already taken to [facility] by Damir Day. RN covering my lunch called report to RN at [facility]. Normal [facility] ED Nursing Note Called report to SWEETIE Linder at . Normal [facility] ED Nursing Note Damir Johnson at bedside to transport patient to [facility]. Normal [facility] ED Provider Noteon ED Provider Note Normal [facility] HIGH SENSITIVITY TROPONIN, S ERIAL BASELINEon 03-13-2025 TROPONIN HS SERIAL BASELINE 39 ng/L High <=35 [facility] Comment on above: Result Comment: In i ndividuals presenting with symptoms > 2h, a baseline troponin <= 5 ng/L suggests acutecardiac injury is unlikely and further serial testing is generally not indicated. Performed By: #### L [id number] ####Circuit Court Magistrate: FENG CONSTANTINO ([phone])[facility] (SB[facility])[address] [place] [address] HIGH SENSITIVITY TROPONIN, S ERIAL, SECOND TESTon 03-13-2025 2H TROPONIN HS (SERIAL 2ND TROPONIN) 44 ng/L High <=35 [facility] Comment on above: Result Comment: 2h t roponin (2nd troponin) samples collected between 1h 40 min and 2h and 20 min of the baseline collection time can be utilized to interpret delta troponins as per [facility] algorithms. Samples collected outside this timeframe need to be interpreted clinically.Rising or falling troponin delta between 2 ??? 15 ng/L as compared to baseline value requires a 3rd serial troponin Performed By: #### L [id number], [id number], [id number] ####Circuit Court Magistrate: DOMENICA JARA ([id number])[facility] ([facility])[address] [place] [address] HIGH SENSITIVITY TROPONIN, S ERIAL, THIRD TESTon 03-13-2025 4H TROPONIN HS (SERIAL 3RD TROPONIN) 50 ng/L High <=35 [facility] Comment on above: Result Comment: 4h t roponin (3rd troponin) samples collected between 1h 40 min and 2h and 20 min of the 2h troponin collection time can be utilized to interpret delta troponins as per [facility] algorithms. Samples collected outside this timeframe need to be interpreted clinically.Rising or falling troponin delta between 2 ??? 15 ng/L as compared to 2h troponin valuerequires further evaluation. Performed By: #### L [id number] ####Circuit Court Magistrate: DOMENICA JARA ([id number])[facility] ([facility])[address] [place] [address] Laboratory - Chemistry and C hemistry - challengeon 03-13-2025 TSH Qn 6.88 m[IU]/L High [facility] Laboratory - Chemistry and C hemistry - challengeOrdered By: Miya Ang on 03-13-2025 Base excess Calc (BldV) [Moles/Vol] 2.2 mmol/L -3.0 - 3.0 mmol/L [facility] CO2 (BldV) [Partial pressure] 45.6 mm[Hg] [facility] CO2 [Moles/Vol] 28.9 mmol/L 23.0 - 30.0 mmol/L [facility] HCO3 (Bld) [Moles/Vol] 27.5 mmol/L 21.0 - 30.0 mmol/L [facility] Oxygen (BldV) [Partial pressure] 33.5 mm[Hg] mm Hg [facility] pH (BldV) 7.398 [pH] 7.320 - 7.420 [facility] Laboratory - Coagulationon 0 03-13-2025 PT Coag (Bld) [Time] 17.7 s High 9.0 - 12.0 s [facility] Laboratory - Hematology and Cell countsOrdered By: Miya Ang on 03-13-2025 Hemoglobin (Bld) [Mass/Vol] 11.8 g/dL Low 13.5 - 17.5 g/dl [facility] - Microbiology an d Antimicrobial susceptibilityon 03-13-2025 FLUAV RNA EMMANUEL+probe Ql (Resp) Not detected Not Detected [facility] FLUBV RNA EMMANUEL+probe Ql (Resp) Not detected Not Detected [facility] RSV RNA EMMANUEL+probe Ql (Resp) Not detected Not Detected [facility] SARS-CoV-2 (COVID-19) RNA EMMANUEL+probe Ql (Resp) Not detected Not Detected [facility] SARS-CoV-2 (COVID-19) RNA EMMANUEL+probe Ql (Unsp spec) Methodology: real-time, RT-PCR The SARS-CoV-2, Flu A/B, and RSV Combo assay is intended for in vitro diagnostic use under the FDA Emergency Use Authorization (EUA). This test has not been FDA cleared or approved. In compliance with this authorization, please visit www.fda.gov/media/14 2435/download or www.fda.gov/media/14 2436/download to access the applicable information sheets. [facility] NT PRO BNPon 03-13-2025 NT PRO BNP >72383 High <125 [facility] Comment on above: Performed By: #### L [id number], [id number], [id number] ####Circuit Court Magistrate: DOMENICA JARA ([id number])[address] Natriuretic peptide B [Mass/ Vol]on 03-13-2025 Interpretation and review of laboratory results Abnormal [facility] Natriuretic peptide B (Bld) [Mass/Vol] pg/mL High NINF - 125 pg/mL [facility] No Panel Informationon 03-13 4h Troponin HS (Serial 3rd Troponin) 50 ng/L High NINF - 35 ng/L [facility] Comment on above: 4h troponin (3rd tro ponin) samples collected between 1h 40 min and 2h and 20 min of the 2h troponin collection time can be utilized to interpret delta troponins as per [facility] algorithms. Samples collected outside this timeframe need to be interpreted clinically. Rising or falling troponin delta between 2 15 ng/L as compared to 2h troponin value requires further evaluation. Interpretation and review of laboratory results Abnormal [facility] 2h Troponin HS (Serial 2nd Troponin) 44 ng/L High NINF - 35 ng/L [facility] Comment on above: 2h troponin (2nd tro ponin) samples collected between 1h 40 min and 2h and 20 min of the baseline collection time can be utilized to interpret delta troponins as per [facility] algorithms. Samples collected outside this timeframe need to be interpreted clinically. Rising or falling troponin delta between 2 15 ng/L as compared to baseline value requires a 3rd serial troponin Interpretation and review of laboratory results Abnormal [facility] Interpretation and review of laboratory results Abnormal [facility] Troponin HS Serial Baseline 39 ng/L High NINF - 35 ng/L [facility] Comment on above: In individuals prese nting with symptoms > 2h, a baseline troponin <= 5 ng/L suggests acute cardiac injury is unlikely and further serial testing is generally not indicated. [facility] P [place] 0 degrees [facility] MS Interval 0 ms [facility] QRS [place] 66 degrees [facility] QRSD Interval 113 ms [facility] Interval 372 ms [facility] QTC Interval 520 ms [facility] T Wave [place] 228 degrees [facility] Atrial flutter with predominant 2:1 AV block Incomplete right bundle branch block Probable anteroseptal infarct, recent Abnormal T, probable ischemia, widespread Minimal ST elevation, inferior leads Prolonged QT interval Electronically Signed On 03-13-2025 08:47:27 EDT by Keiry Solares CV Keiry Sena MD - 03/13/2025 IMPRESSION: Atrial flutter with predominant 2:1 AV block Incomplete right bundle branch block Probable anteroseptal infarct, recent Abnormal T, probable ischemia, widespread Minimal ST elevation, inferior leads Prolonged QT interval Electronically Signed On 03-13-2025 08:47:27 EDT by Keiry Solares [facility] No Panel InformationOrdered By: Miya Ang on 03-13-[address] [facility] Interpretation and review of laboratory results Abnormal [facility] Source Of Oxygen Nasal Cannula (LPM) [facility] Assessment of oxygenation is best done with an arterial blood gas determination. Reference ranges for pO2, bicarbonate, and base excess are for mixed venous blood. Specimens drawn from a peripheral vein will often have higher values. [facility] Nursing Noteon 03-13-2025 Nursing Note Removed wound vac that patient arrived to 5w from ecf pictures of all wound taken on rover and saved to chart NSWto DSD applied to sacral wound Normal [facility] PROTHROMBIN TIMEon INR Coag (PPP) [Relative time] 1.7 {INR} High 0.9-1.[address] [facility] Comment on above: Result Comment: Vaughn [...] Myocardial Infarction Performed By: #### Tameka [id number] ####Circuit Court Magistrate: FENG CONSTANTINO ([phone])[facility] ([facility])[address] [place] [address] PT Coag (PPP) [Time] 17.7 s High 9.0-12.0 [facility] Comment on above: Performed By: #### Tameka [id number] ####Circuit Court Magistrate: FENG CONSTANTINO ([phone])[facility] ([facility])[address] [place] [address] PT Coag (Bld) [Time]on 03-13 INR Coag (PPP) [Relative time] 1.7 {INR} High 0.9 - 1.1 [facility] [facility] Comment on above: Recommended Anticoag ulant Therapy: [...] Interpretation and review of laboratory results Abnormal [facility] SARS-COV-2, FLU A/B, AND RSV COMBOon 03-13-2025 SARS-CoV-2 (COVID-19) RNA EMMANUEL+probe Ql (Unsp spec) Normal [facility] Comment on above: Performed By: #### L [id number] ####Circuit Court Magistrate: FENG CONSTANTINO ([id number])[facility] ([facility])[address] [place] [address] SARS-CoV-2, Flu A/B, and RSV Comboon 03-13-2025 Interpretation and review of laboratory results Normal [facility] THYROID STIMULATING HORMONEo n 03-13-2025 THYROID STIMULATING HORMONE 6.88 uIU/mL High 0.35-4.94 [facility] Comment on above: Performed By: #### L [id number], [id number], [id number] ####Circuit Court Magistrate: DOMENICA JARA ([phone])[facility] ([facility])[address] [place] [address] TSH Qnon 03-13-2025 Interpretation and review of laboratory results Abnormal [facility] Vital signsOrdered By: Delicia Ang on 03-13-2025 Oxygen saturation in Venous blood 57.2 % [facility] Vital signson 03-13-2025 Heart rate 117 /min bpm [facility] XR Chest Single viewon 03-13 1. Limited supine study. 2. Cardiomegaly with probable pulmonary venous congestion. 3. Hyperinflated lungs with chronic, ill-defined opacities in both lungs which are most likely areas of fibrosis. No definite lung consolidation. Report Dictated on Electronically Signed By: Bettye Ribera MD Electronically Signed Date/Time: 03/13/2025 9:18 AM [facility] Patient Name: JUN SNYDER : 1965 Exam Date/Time: 03/13/2025 09:06 Procedure: XR CHEST [...] Biapical pleural thickening is chronic. Bones: Unremarkable [facility] Bettye Ribera MD - 03/13/2025 [facility] 1965 [id number] Exam Date/Time: 03/13/2025 09:06 Procedure: XR CHEST [...] Electronically Signed Date/Time: 03/13/2025 9:18 AM EDT [facility] Radiology Study observation (narrative) [facility] XR Chest Single viewOrdered By: Bettye Ribera on 03-13-2025 [facility] [employer] Work Phone: Absolute lymphocyte countOrd ered By: Jayesh Stubbs on 03-12-2025 Lymphocytes Auto (Unsp spec) [#/Vol] 1.12 10*3/uL 0.83-4.51 [facility] Absolute neutrophil countOrd ered By: Jayesh Stubbs on 03-12-2025 Neutrophils (Bld) [#/Vol] 4.3 10*3/uL 2.0-7.7 [facility] Anion gap in Serum or Plasma Ordered By: Jayesh Stubbs on 03-12-2025 Anion gap [Moles/Vol] 13 mmol/L 5-15 [facility] Automated lymphocyte count a s percentage of total leukocytesOrdered By: Jayesh Stubbs on 03-12-2025 Lymphocytes/100 WBC Auto (Unsp spec) 16.9 % Low 19-41 [facility] BUN/creatinine ratioOrdered By: Jayesh Stubbs on 03-12-2025 Urea nitrogen/Creatinine [Mass ratio] 11.8 mg/mg 10-20 [facility] Basophil percentageOrdered B y: Jayesh Stubbs on 03-12-2025 Basophils/100 WBC (Bld) 2.0 % High 0-1 [facility] Bilirubin, totalOrdered By: Jayesh Stubbs on 03-12-2025 Bilirubin [Mass/Vol] 0.62 mg/dL 0.00-1.30 [facility] CBC W/Diff, Automatedon 02-25 Anisocytosis Ql (Bld) 1+ Normal [facility] Comment on above: Order Comment: 412.2 Performed By: #### L 500.4050, L300.3900, L100.0100 #### [facility] [address] [facility] [place], [address] Carbon dioxide, total [Moles /volume] in Central venous bloodOrdered By: Jayesh Stubbs on 03-12-2025 CO2 [Moles/Vol] 27.8 mmol/L 21.0-32.0 [facility] Chloride assayOrdered By: George Dorado on 03-12-2025 Chloride [Moles/Vol] 98 mmol/L 98-108 [facility] Eosinophil percentageOrdered By: Jayesh Stubbs on 03-12-2025 Eosinophils/100 WBC (Bld) 2.3 % 0-5 [facility] Erythrocyte distribution wid th ratioOrdered By: Jayesh Stubbs on 03-12-2025 Erythrocyte distribution width (RBC) [Ratio] 21.6 % High 11.6-14.6 [facility] Erythrocyte distribution wid th standard deviationOrdered By: Jayesh Stubbs on 03-12-2025 Erythrocyte distribution width (RBC) [Ratio] 79.4 fl High 35.1-43.9 [facility] Glomerular filtration rate ( GFR) estimation/1.73 sq m using serum, plasma, or whole bOrdered By: Jayesh Stubbs on 03-12-2025 GFR/1.73 sq M.predicted among non-blacks MDRD (S/P/Bld) [Vol rate/Area] 14 mL/min/{1.73_m2} Low >60 [facility] Comment on above: mL/min/1.73m2 CKD-EP I Creatinine Equation (2020) Hematocrit Auto (Bld) [Volum e fraction]Ordered By: Jayesh Stubbs on 03-12-2025 Hematocrit (Bld) [Volume fraction] 28.7 % Low 40-54 [facility] Hemoglobin measurementOrdere d By: Jayesh Stubbs on 03-12-2025 Hemoglobin (Bld) [Mass/Vol] 8.7 g/dL Low 13.0-16.5 [facility] Immature granulocytes/100 WB C Auto (Bld)Ordered By: Jayesh Stubbs on 03-12-2025 Immature granulocytes/100 WBC (Bld) 0.300 % 0.0-0.9 [facility] Comment on above: IG% - Immature Granu locytes (promyelocytes, myelocytes and metamyelocytes) > 1% indicates that a LEFT SHIFT is Present. International normalized rat io (INR) calculationOrdered By: Jayesh Stubbs on 03-12-2025 INR Coag (Bld) [Relative time] 1.9 {INR} [facility] - Chemistry and C hemistry - challengeOrdered By: Jayesh Stubbs on 03-12-2025 AST [Catalytic activity/Vol] 47 U/L High <38 [facility] - Hematology and Cell countsOrdered By: Jayesh Stubbs on 03-12-2025 Anisocytosis Ql (Bld) 1+ [facility] MCV (mean corpuscular volume ) determinationOrdered By: Jayesh Stubbs on 03-12-2025 MCV (RBC) [Entitic vol] 100.3 fL High 80-94 [facility] Mean corpuscular hemoglobin (MCH) determinationOrdered By: Jayesh Stubbs on 03-12-2025 MCH (RBC) [Entitic mass] 30.4 pg 27.0-32.0 [facility] Mean corpuscular hemoglobin concentration (MCHC) determinationOrdered By: Jayesh Stubbs on 03-12-2025 MCHC (RBC) [Mass/Vol] 30.3 g/dL Low 32-36 [facility] Mean platelet volume determi nationOrdered By: Jayesh Stubbs on 03-12-2025 Platelet mean volume (Bld) [Entitic vol] 9.5 fL 6.2-12.0 [facility] Monocyte percentageOrdered B y: Jayesh Stubbs on 03-12-2025 Monocytes/100 WBC (Bld) 14.2 % High 0-10 [facility] Neutrophil percentageOrdered By: Jayesh Stubbs on 03-12-2025 Neutrophils/100 WBC (Bld) 64.3 % 47-70 [facility] Nucleated red blood cell per centageOrdered By: Jayesh Stubbs on 03-12-2025 Nucleated RBC/100 WBC (Bld) [Ratio] 0.3 % 0-5 [facility] Platelet countOrdered By: George Dorado on 03-12-2025 Platelets (Bld) [#/Vol] 404 10*3/uL 150-450 [facility] Potassium measurement (mass/ volume)Ordered By: Jayesh Stubbs on 03-12-2025 Potassium (Unsp spec) [Mass/Vol] 4.1 mmol/L 3.3-5.1 [facility] Prothrombin Time w/INRon INR Coag (PPP) [Relative time] 1.9 {INR} Normal [facility] Comment on above: Order Comment: 412.2 Performed By: #### L 500.4050, L300.3900, L100.0100 #### [facility] [address] [place], [address] PT Coag (PPP) [Time] 22.4 s High 11.7-14.9 [facility] Comment on above: Order Comment: 412.2 Performed By: #### L 500.4050, L300.3900, L100.0100 #### [facility] [address] [place], [address] Prothrombin timeOrdered By: Jayesh Stubbs on 03-12-2025 PT Coag (PPP) [Time] 22.4 s High 11.7-14.9 [facility] RBC Auto (Bld) [#/Vol]Ordere d By: Jayesh Stubbs on 03-12-2025 RBC (Bld) [#/Vol] 2.86 10*6/uL Low 4.6-6.2 [facility] Serum creatinine measurement (mass/volume)Ordered By: Jayesh Stubbs on 03-12-2025 Creatinine [Mass/Vol] 4.67 mg/dL High 0.70-1.20 [facility] Serum globulin measurementOr dered By: Jayesh Stubbs on 03-12-2025 Globulin (S) [Mass/Vol] 4.1 g/dL 2.2-4.2 [facility] Serum glucose measurement (m ass/volume)Ordered By: Jayesh Stubbs on 03-12-2025 Glucose [Mass/Vol] 102 mg/dL High 70-99 [facility] Serum or plasma alanine mayorga otransferase (ALT) measurementOrdered By: Jayesh Stubbs on 03-12-2025 ALT [Catalytic activity/Vol] 20 U/L <47 [facility] Serum or plasma albumin audrey urement (mass/volume)Ordered By: Jayesh Stubbs on 03-12-2025 Albumin [Mass/Vol] 3.0 g/dL Low 3.5-5.0 [facility] Serum or plasma albumin/glob ulin mass ratioOrdered By: Jayesh Stubbs on 03-12-2025 Albumin/Globulin [Mass ratio] 0.7 {ratio} Low 0.9-2.4 [facility] Serum or plasma alkaline jacob sphatase measurementOrdered By: Jayesh Stubbs on 03-12-2025 ALP [Catalytic activity/Vol] 171 U/L High 40-129 [facility] Serum or plasma calcium audrey urement (mass/volume)Ordered By: Jayesh Stubbs on 03-12-2025 Calcium [Mass/Vol] 9.9 mg/dL 7.6-11.0 [facility] Serum or plasma urea nitroge n measurement (mass/volume)Ordered By: Jayesh Stubbs on 03-12-2025 Urea nitrogen [Mass/Vol] 55 mg/dL High 4-19 [facility] Sodium levelOrdered By: George Stubbs on 03-12-2025 Sodium [Moles/Vol] 139 mmol/L 133-145 [facility] Total proteinOrdered By: Sonia Stubbs on 03-12-2025 Protein [Mass/Vol] 7.1 g/dL 5.9-8.4 [facility] White blood cell (WBC) count Ordered By: Jayesh Stubbs on 03-12-2025 WBC (Bld) [#/Vol] 6.6 10*3/uL 4.4-11.0 [facility] Potassiumon 03-09-2025 Potassium [Moles/Vol] 4.1 mmol/L Normal 3.3-5.1 [facility] Comment on above: Order Comment: 412.2 Performed By: #### L 500.4050, L300.3900, L100.0100 #### [facility] [address] [place], [address] Potassium measurement (mass/ volume)Ordered By: Jayesh Stubbs on 03-09-2025 Potassium (Unsp spec) [Mass/Vol] 4.1 mmol/L 3.3-5.1 [facility] 36on 03-08-2025 36 2nd attempt called and spoke to the Alyssa the Nurse for the patient at the facility he lives at. She states Sabino is the person who schedules the appointments and she is on vacation and wont be back till next Wednesday. I will try again next wednesday Normal [facility] Progress Noteon 03-08-2025 Progress Note Normal [facility] 36on 03-06-2025 36 Pt DC [facility] [id number] 03-05-2025 [id number] [facility] [id number] Auth is now pending with [facility] for [facility]. Auth ID: [id number] . The insurance needs PT and OT notes- as PT note yesterday incomplete , they are both requested . [facility] [id number] [facility] [id number] Discharge med list transmitted to [facility] via [facility] per [facility] request. [facility] [id number] [facility] [id number] [facility] APTTon 03-05-2025 aPTT Coag (Bld) [Time] 37.6 s High 20.0-30.5 [facility] Comment on above: Result Comment: ARPAN Kaplan COMMENTS:NOTE: The therapeutic time for Heparin anticoagulation, based on Xa activity inhibition, is an APTT of 46-80 seconds. Performed By: #### L [id number], [id number] ####Circuit Court Magistrate: DOMENICA JARA ([phone])[facility] [address] BASIC METABOLIC PANELon 06-0 Anion gap [Moles/Vol] 8 mmol/L Normal 3-13 [facility] Comment on above: Performed By: #### L AB15 ####Circuit Court Magistrate: DOMENICA JARA ([phone])[facility] ([address] Calcium [Mass/Vol] 9.7 mg/dL Normal 8.4-10.[address] [facility] Comment on above: Performed By: #### L AB15 ####Circuit Court Magistrate: DOMENICA [phone])[facility] ([facility])[address] [place] [address] Chloride [Moles/Vol] 102 mmol/L Normal 98-107 [facility] Comment on above: Performed By: #### L AB15 ####Circuit Court Magistrate: DOMENICA JARA ([phone])[facility])[address] [place] [address] CO2 [Moles/Vol] 26 mmol/L Normal 22-29 [facility] Comment on above: Performed By: #### L AB15 ####Circuit Court Magistrate: DOMENICA JARA ([phone])[facility])[address] [place] [address] Creatinine [Mass/Vol] 3.10 mg/dL High 0.72-1.25 [facility] Comment on above: Performed By: #### L AB15 ####Circuit Court Magistrate: DOMENICA JARA ([phone])[facility])[address] [place] [address] GLOMERULAR FILTRATION RATE ML/MIN/1.73 SQ M.PREDICTED 22.3 mL/min/1.73m*2 Low >60.0 [facility] Comment on above: Result Comment: Calc ulation based on the Chronic Kidney Disease Epidemiology Collaboration (CKD-EPI) equation refit without adjustment for race Performed By: #### L AB15 ####Circuit Court Magistrate: DOMENICA JARA ([phone])[facility])[address] [place] [address] Glucose [Mass/Vol] 68 mg/dL Low 74-100 [facility] Comment on above: Performed By: #### L AB15 ####Circuit Court Magistrate: DOMENICA JARA ([phone])[facility])[address] [place] [address] Potassium [Moles/Vol] 5.9 mmol/L High 3.5-5.1 [facility] Comment on above: Result Comment: [facility] potassium values may be up to 0.5 mmol/L lower than serum values. Performed By: #### L AB15 ####Circuit Court Magistrate: DOMENICA [phone])[facility] ([facility])[address] Sodium [Moles/Vol] 136 mmol/L Normal 136-145 [facility] Comment on above: Performed By: #### L AB15 ####Circuit Court Magistrate: DOMENICA JARA ([phone])[facility] ([facility])[address] [place] [address] Urea nitrogen [Mass/Vol] 27 mg/dL High 9-23 [facility] Comment on above: Performed By: #### L AB15 ####Circuit Court Magistrate: DOMENICA JARA ([phone])[facility] ([facility])[address] [place] [address] Anion gap [Moles/Vol] 9 mmol/L Normal 3-13 [facility] Comment on above: Performed By: #### L AB15 ####Circuit Court Magistrate: DOMENICA JARA ([id number])[facility] ([facility])[address] [place] [address] Calcium [Mass/Vol] 9.7 mg/dL Normal 8.4-10.2 [facility] Comment on above: Performed By: #### L AB15 ####Circuit Court Magistrate: DOMENICA JARA ([phone])[facility] ([facility])[address] [place] [address] Chloride [Moles/Vol] 102 mmol/L Normal 98-107 [facility] Comment on above: Performed By: #### L AB15 ####Circuit Court Magistrate: DOMENICA JARA ([id number])[facility] ([facility])[address] [place] [address] [place] CO2 [Moles/Vol] 25 mmol/L Normal 22-29 [facility] Comment on above: Performed By: #### L AB15 ####Circuit Court Magistrate: DOMENICA JARA ([id number])[facility] ([facility])[address] [place] [address] [place] Creatinine [Mass/Vol] 3.03 mg/dL High 0.72-1.25 [facility] Comment on above: Performed By: #### L AB15 ####Circuit Court Magistrate: DOMENICA JARA ([phone])[facility])[address] [place] [address] [place] GLOMERULAR FILTRATION RATE ML/MIN/1.73 SQ M.PREDICTED 22.9 mL/min/1.73m*2 Low >60.0 [facility] Comment on above: Result Comment: Calc ulation based on the Chronic Kidney Disease Epidemiology Collaboration (CKD-EPI) equation refit without adjustment for race Performed By: #### L AB15 ####Circuit Court Magistrate: DOMENICA JARA ([phone])[facility] ([facility])[address] [place] [address] Glucose [Mass/Vol] 77 mg/dL Normal 74-100 [facility] Comment on above: Performed By: #### L AB15 ####Circuit Court Magistrate: DOMENICA JARA ([phone])[facility])[address] [place] [address] Potassium [Moles/Vol] 6.6 mmol/L Critically high 3.5-5.1 [facility] Comment on above: Result Comment: [facility] potassium values may be up to 0.5 mmol/L lower than serum values. Performed By: #### L AB15 ####Circuit Court Magistrate: DOMENICA JARA ([phone])[facility] ([facility])[address] [place] [address] [place] Sodium [Moles/Vol] 136 mmol/L Normal 136-145 [facility] Comment on above: Performed By: #### L AB15 ####Circuit Court Magistrate: DOMENICA JARA ([phone])[facility])[address] [place] [address] [place] Urea nitrogen [Mass/Vol] 26 mg/dL High 9-23 [facility] Comment on above: Performed By: #### L AB15 ####Circuit Court Magistrate: DOMENICA JARA ([phone])[facility] ([facility])[address] [place] [address] [place] Basic metabolic 1998 panelon 03-05-2025 Anion gap [Moles/Vol] 8 mmol/L 3 - 13 mmol/L [facility] Calcium [Mass/Vol] 9.7 mg/dL 8.4 - 10. 2 mg/dL [facility] Chloride [Moles/Vol] 102 mmol/L 98 - 10 7 mmol/L [facility] CO2 [Moles/Vol] 26 mmol/L 22 - 29 mmol/L [facility] Creatinine [Mass/Vol] 3.1 mg/dL High 0.72 - 1.25 mg/dL [facility] GFR/1.73 sq M.predicted (S/P/Bld) [Vol rate/Area] 22.3 mL/min Low - PINF [facility] Glucose [Mass/Vol] 68 mg/dL Low 74 - 100 mg/dL [facility] Interpretation and review of laboratory results Abnormal [facility] Potassium [Moles/Vol] 5.9 mmol/L High 3.5 - 5.1 mmol/L [facility] Sodium [Moles/Vol] 136 mmol/L 136 - 145 mmol/L [facility] Urea nitrogen [Mass/Vol] 27 mg/dL High 9 - 23 mg/d L [facility] Anion gap [Moles/Vol] 9 mmol/L 3 - 13 mmol/L [facility] Calcium [Mass/Vol] 9.7 mg/dL 8.4 - 10. 2 mg/dL [facility] Chloride [Moles/Vol] 102 mmol/L 98 - 10 7 mmol/L [facility] CO2 [Moles/Vol] 25 mmol/L 22 - 29 mmol/L [facility] Creatinine [Mass/Vol] 3.03 mg/dL High 0.72 - 1.25 mg/dL [facility] GFR/1.73 sq M.predicted (S/P/Bld) [Vol rate/Area] 22.9 mL/min Low - PINF [facility] Glucose [Mass/Vol] 77 mg/dL 74 - 100 mg/dL [facility] Interpretation and review of laboratory results Abnormal [facility] Potassium [Moles/Vol] 6.6 mmol/L Critically high 3.5 - 5.1 mmol/L [facility] Sodium [Moles/Vol] 136 mmol/L 136 - 145 mmol/L [facility] Urea nitrogen [Mass/Vol] 26 mg/dL High 9 - 23 mg/d L [facility] CBC (HEMOGRAM)on 03-05-2025 Erythrocyte distribution width (RBC) [Ratio] 21.6 % High 11.5-15.0 [facility] Comment on above: Performed By: #### L [id number] ####Circuit Court Magistrate: DOMENICA JARA ([id number])[facility])[address] [place] [address] Hematocrit (Bld) [Volume fraction] 25.7 % Low 40.0-52.0 [facility] Comment on above: Performed By: #### L [id number] ####Circuit Court Magistrate: DOMENICA JARA ([phone])[facility])[address] [place] [address] Hemoglobin (Bld) [Mass/Vol] 7.7 g/dL Low 13.0-18.0 [facility] Comment on above: Performed By: #### L [id number] ####Circuit Court Magistrate: DOMENICA JARA ([id number])[address] MCH (RBC) [Entitic mass] 29.7 pg Normal 26.0-34.0 [facility] Comment on above: Performed By: #### L [id number] ####Circuit Court Magistrate: DOMENICA JARA ([phone])[facility])[address] [place] [address] MCHC 30.0 % Low 30.5-36.0 [facility] Comment on above: Performed By: #### L [id number] ####Circuit Court Magistrate: DOMENICA JARA ([id number])[facility])[address] [place] [address] MCV (RBC) [Entitic vol] 99.2 fL High 77.0-99.0 S [facility] Comment on above: Performed By: #### L [id number] ####Circuit Court Magistrate: DOMENICA JARA ([id number])[facility])[address] [place] [address] Platelet mean volume (Bld) [Entitic vol] 9.1 fL Normal 9.0-12.7 [facility] Comment on above: Performed By: #### L [id number] ####Circuit Court Magistrate: DOMENICA JARA ([id number])[facility] ([facility])[address] [place] [address] Platelets (Bld) [#/Vol] 303 10*3/uL Normal 140-440 [facility] Comment on above: Performed By: #### L AB294 ####Circuit Court Magistrate: DOMENICA JARA ([id number])[facility] ([facility])[address] [place] [address] RBC (Bld) [#/Vol] 2.59 10*6/uL Low 4.40-5.90 [facility] Comment on above: Performed By: #### L AB294 ####Circuit Court Magistrate: DOMENICA JARA ([id number])[facility] ([facility])[address] [place] [address] WBC (Bld) [#/Vol] 9.1 10*3/uL Normal 3.6-10.7 [facility] Comment on above: Performed By: #### L AB294 ####Circuit Court Magistrate: DOMENICA JARA ([id number])[facility] ([facility])[address] [place] [address] CBC W/Diff, Automatedon 06-0 -2024 Absolute Neut Normal 2.0-7.7 [facility] Comment on above: Order Comment: 412.2 Result Comment: [facility] Performed By: #### L 500.4050, L300.3900, L100.0100 #### [facility] [address] [place], [address] HCT Normal 40-54 [facility] Comment on above: Order Comment: 412.2 Result Comment: [facility] Performed By: #### L 500.4050, L300.3900, L100.0100 #### [facility] [address] [place], [address] HGB Normal 13.0-16.5 [facility] Comment on above: Order Comment: 412.2 Result Comment: [facility] Performed By: #### L 500.4050, L300.3900, L100.0100 #### [facility] [address] [place], [address] MCH Normal 27.0-32.0 [facility] Comment on above: Order Comment: 412.2 Result Comment: [facility] Performed By: #### L 500.4050, L300.3900, L100.0100 #### [facility] [address] [place], [address] MCHC Normal 32-36 [facility] Comment on above: Order Comment: 412.2 Result Comment: [facility] Performed By: #### L 500.4050, L300.3900, L100.0100 #### [facility] [address] [place], [address] MCV Normal 80-94 [facility] Comment on above: Order Comment: 412.2 Result Comment: [facility] Performed By: #### L 500.4050, L300.3900, L100.0100 #### [facility] [address] [place], [address] NEUT% Normal 47-70 [facility] Comment on above: Order Comment: 412.2 Result Comment: [facility] Performed By: #### L 500.4050, L300.3900, L100.0100 #### [facility] [address] [place], [address] PLT Normal 150-450 [facility] Comment on above: Order Comment: 412.2 Result Comment: [facility] Performed By: #### L 500.4050, L300.3900, L100.0100 #### [facility] [address] [place], [address] RBC Normal 4.6-6.2 [facility] Comment on above: Order Comment: 412.2 Result Comment: [facility] Performed By: #### L 500.4050, L300.3900, L100.0100 #### [facility] [address] [place], [address] RDW CV Normal 11.6-14.6 [facility] Comment on above: Order Comment: 412.2 Result Comment: [facility] Performed By: #### L 500.4050, L300.3900, L100.0100 #### [facility] [address] [place], [address] RDW SD Normal 35.1-43.9 [facility] Comment on above: Order Comment: 412.2 Result Comment: [facility] Performed By: #### L 500.4050, L300.3900, L100.0100 #### [facility] [address] [place], [address] WBC Normal 4.4-11.0 [facility] Comment on above: Order Comment: 412.2 Result Comment: [facility] Performed By: #### L 500.4050, L300.3900, L100.0100 #### [facility] [address] [place], [address] CBC panel Auto (Bld)on 03-05 Erythrocyte distribution width (RBC) [Ratio] 21.6 % High 11.5 - 15.0 % [facility] Hematocrit (Bld) [Volume fraction] 25.7 % Low 40.0 - 52.0 % [facility] Hemoglobin (Bld) [Mass/Vol] 7.7 g/dL Low 13.0 - 18.0 g/dL [facility] Interpretation and review of laboratory results Abnormal [facility] MCH (RBC) [Entitic mass] 29.7 pg 26. 0 - 34.0 pg [facility] MCHC (RBC) [Mass/Vol] 30 % Low 30.5 - 36.0 % [facility] MCV (RBC) [Entitic vol] 99.2 fL High 77.0 - 99.0 fL [facility] Platelet mean volume (Bld) [Entitic vol] 9.1 fL 9.0 - 12.7 fL [facility] Platelets (Bld) [#/Vol] 303 10*3/uL 140 - 440 10*3/uL [facility] RBC (Bld) [#/Vol] 2.59 10*6/uL Low 4.40 - 5.9 0 10*6/uL [facility] WBC (Bld) [#/Vol] 9.1 10*3/uL 3.6 - 10.7 10*3/uL [facility] Comprehensive Metabolic Prof ilon 03-05-2025 ALB Normal 3.5-5.0 [facility] Comment on above: Order Comment: 412.2 Result Comment: [facility] Performed By: #### L 500.4050, L300.3900, L100.0100 #### [facility] [address] [place], [address] ALK PHOS Normal 40-129 [facility] Comment on above: Order Comment: 412.2 Result Comment: [facility] Performed By: #### L 500.4050, L300.3900, L100.0100 #### [facility] [address] [place], [address] ALT Normal <=46 [facility] Comment on above: Order Comment: 412.2 Result Comment: [facility] Performed By: #### L 500.4050, L300.3900, L100.0100 #### [facility] [address] [place], [address] AST Normal <=37 [facility] Comment on above: Order Comment: 412.2 Result Comment: [facility] Performed By: #### L 500.4050, L300.3900, L100.0100 #### [facility] [address] [place], [address] BUN Normal 4-19 [facility] Comment on above: Order Comment: 412.2 Result Comment: [facility] Performed By: #### L 500.4050, L300.3900, L100.0100 #### [facility] [address] [place], [address] BUN/CRE Normal 10-20 [facility] Comment on above: Order Comment: 412.2 Result Comment: [facility] Performed By: #### L 500.4050, L300.3900, L100.0100 #### [facility] [address] [place], [address] Calcium Normal 7.6-11.0 [facility] Comment on above: Order Comment: 412.2 Result Comment: [facility] Performed By: #### L 500.4050, L300.3900, L100.0100 #### [facility] [address] [place], [address] CL Normal 98-108 [facility] Comment on above: Order Comment: 412.2 Result Comment: [facility] Performed By: #### L 500.4050, L300.3900, L100.0100 #### [facility] [address] [place], [address] CO2 Normal 21.0-32.0 [facility] Comment on above: Order Comment: 412.2 Result Comment: [facility] Performed By: #### L 500.4050, L300.3900, L100.0100 #### [facility] [address] [place], [address] CREAT,SERUM Normal 0.70-1.20 [facility] Comment on above: Order Comment: 412.2 Result Comment: [facility] Performed By: #### L 500.4050, L300.3900, L100.0100 #### [facility] [address] [place], [address] eGFR Normal >60 [facility] Comment on above: Order Comment: 412.2 Result Comment: [facility] Performed By: #### L 500.4050, L300.3900, L100.0100 #### [facility] [address] [place], [address] GAP Normal 5-15 [facility] Comment on above: Order Comment: 412.2 Result Comment: [facility] Performed By: #### L 500.4050, L300.3900, L100.0100 #### [facility] [address] [place], [address] GLU Normal 70-99 [facility] Comment on above: Order Comment: 412.2 Result Comment: [facility] Performed By: #### L 500.4050, L300.3900, L100.0100 #### [facility] [address] [place], [address] Potassium Normal 3.3-5.1 [facility] Comment on above: Order Comment: 412.2 Result Comment: [facility] Performed By: #### L 500.4050, L300.3900, L100.0100 #### [facility] [address] [place], [address] T BILI Normal 0.00-1.30 [facility] Comment on above: Order Comment: 412.2 Result Comment: [facility] Performed By: #### L 500.4050, L300.3900, L100.0100 #### [facility] [address] [place], [address] T PROT Normal 5.9-8.4 [facility] Comment on above: Order Comment: 412.2 Result Comment: [facility] Performed By: #### L 500.4050, L300.3900, L100.0100 #### [facility] [address] [place], [address] Comprehensive Metabolic Profil Normal 133-145 [facility] Comment on above: Order Comment: 412.2 Result Comment: [facility] Performed By: #### L 500.4050, L300.3900, L100.0100 #### [facility] [place], [address] Laboratory - Chemistry and C hemistry - challengeon 03-05-2025 Glucose [Mass/Vol] 142 mg/dL High 70 - 100 mg/dL [facility] Glucose [Mass/Vol] 83 mg/dL 70 - 100 mg/dL [facility] Laboratory - Coagulationon 0 03-05-2025 PT Coag (Bld) [Time] 18.6 s High 9.0 - 12.0 s [facility] No Panel Informationon 03-05 Interpretation and review of laboratory results Abnormal [facility] Interpretation and review of laboratory results Normal [facility] Interpretation and review of laboratory results Abnormal [facility] PROTHROMBIN TIMEon INR Coag (PPP) [Relative time] 1.8 {INR} High 0.9-1.1 [facility] Comment on above: Result Comment: Vaughn [...] Myocardial Infarction Performed By: #### Tameka AB325, [id number] ####Circuit Court Magistrate: DOMENICA JARA ([phone])[facility])[address] [place] [address] PT Coag (PPP) [Time] 18.6 s High 9.0-12.0 [facility] Comment on above: Performed By: #### Tameka AB325, [id number] ####Circuit Court Magistrate: DOMENICA JARA ([id number])[facility] ([facility])[address] [place] [address] PT Coag (Bld) [Time]on 03-05 INR Coag (PPP) [Relative time] 1.8 {INR} High 0.9 - 1.1 [facility] Progress Noteon 03-05-2025 Progress Note Normal [facility] Progress Note Normal [facility] Progress [facility] Normal [facility] Progress Note Normal [facility] Progress Note Normal [facility] Progress Note Normal [facility] Prothrombin Time w/INRon INR Normal [facility] Comment on above: Order Comment: 412.2 Result Comment: [facility] Performed By: #### L 500.4050, L300.3900, L100.0100 #### [facility] [address] [place], [address] PROTIME Normal 11.7-14.9 [facility] Comment on above: Order Comment: 412.2 Result Comment: [facility] Performed By: #### L 500.4050, L300.3900, L100.0100 #### [facility] [address] [place], [place], [address] aPTT Coag (Bld) [Time]on aPTT Coag (PPP) [Time] 37.6 s High 20.0 - 30.5 s [facility] 30on 03-04-2025 30 Normal [facility] [id number] 03-04-2025 [id number] Normal [facility] APTTon 03-04-2025 aPTT Coag (Bld) [Time] 52.2 s High 20.0-30.[address] [facility] Comment on above: Result Comment: ORDE R COMMENTS:NOTE: The therapeutic time for Heparin anticoagulation, based on Xa activity inhibition, is an APTT of 46-80 seconds. Performed By: #### L AB325, [id number] ####Circuit Court Magistrate: DOMENICA JARA ([id number])[facility] ([id number] BASIC METABOLIC PANELon Anion gap [Moles/Vol] 11 mmol/L Normal 3-13 [facility] Comment on above: Performed By: #### L AB15 ####Circuit Court Magistrate: DOMENICA JARA ([id number])[facility] ([facility])[address] [place] [address] Calcium [Mass/Vol] 9.4 mg/dL Normal 8.4-10.2 [facility] Comment on above: Performed By: #### L AB15 ####Circuit Court Magistrate: DOMENICA JARA ([phone])[facility] ([facility])[address] [place] [address] [place] Chloride [Moles/Vol] 103 mmol/L Normal 98-107 [facility] Comment on above: Performed By: #### L AB15 ####Circuit Court Magistrate: DOMENICA JARA ([phone])[facility] ([facility])[address] [place] [address] CO2 [Moles/Vol] 27 mmol/L Normal 22-29 [facility] Comment on above: Performed By: #### L AB15 ####Circuit Court Magistrate: DOMENICA JARA ([id number])[facility] ([facility])[address] Creatinine [Mass/Vol] 2.41 mg/dL High 0.72-1.25 [facility] Comment on above: Performed By: #### L AB15 ####Circuit Court Magistrate: DOMENICA JARA ([phone])[facility] ([facility])[address] [place] [address] [place] GLOMERULAR FILTRATION RATE ML/MIN/1.73 SQ M.PREDICTED 30.2 mL/min/1.73m*2 Low >60.0 [facility] Comment on above: Result Comment: Calc ulation based on the Chronic Kidney Disease Epidemiology Collaboration (CKD-EPI) equation refit without adjustment for race Performed By: #### L AB15 ####Circuit Court Magistrate: DOMENICA JARA ([id number])[facility] ([facility])[address] [place] [address] [place] Glucose [Mass/Vol] 99 mg/dL Normal 74-100 [facility] Comment on above: Performed By: #### L AB15 ####Circuit Court Magistrate: DOMENICA JARA ([phone])[facility] ([facility])[address] [place] [address] Potassium [Moles/Vol] 5.1 mmol/L Normal 3.5-5.1 [facility] Comment on above: Result Comment: [facility] potassium values may be up to 0.5 mmol/L lower than serum values. Performed By: #### L AB15 ####Circuit Court Magistrate: DOMENICA JARA ([phone])[facility] ([facility])[address] [place] [address] Sodium [Moles/Vol] 141 mmol/L Normal 136-145 [facility] Comment on above: Performed By: #### L AB15 ####Circuit Court Magistrate: DOMENICA JARA ([id number])[facility] ([facility])[address] [place] [address] Urea nitrogen [Mass/Vol] 18 mg/dL Normal 9-23 [facility] Comment on above: Performed By: #### L AB15 ####Circuit Court Magistrate: DOMENICA JARA ([id number])[facility] ([facility])[address] [place] [address] Basic metabolic 1998 panelon 03-04-2025 Anion gap [Moles/Vol] 11 mmol/L 3 - 13 mmol/L [facility] Calcium [Mass/Vol] 9.4 mg/dL 8.4 - 10. 2 mg/dL [facility] Chloride [Moles/Vol] 103 mmol/L 98 - 10 7 mmol/L [facility] CO2 [Moles/Vol] 27 mmol/L 22 - 29 mmol/L [facility] Creatinine [Mass/Vol] 2.41 mg/dL High 0.72 - 1.25 mg/dL [facility] GFR/1.73 sq M.predicted (S/P/Bld) [Vol rate/Area] 30.2 mL/min Low - PINF [facility] Glucose [Mass/Vol] 99 mg/dL 74 - 100 mg/dL [facility] Interpretation and review of laboratory results Abnormal [facility] Potassium [Moles/Vol] 5.1 mmol/L 3.5 - 5.1 mmol/L [facility] Sodium [Moles/Vol] 141 mmol/L 136 - 145 mmol/L [facility] Urea nitrogen [Mass/Vol] 18 mg/dL 9 - 23 mg/d L [facility] CBC (HEMOGRAM)on 03-04-2025 Erythrocyte distribution width (RBC) [Ratio] 21.4 % High 11.5-15.0 [facility] Comment on above: Performed By: #### L AB294 ####Circuit Court Magistrate: DOMENICA JARA ([phone])[facility])[address] [place] [address] Hematocrit (Bld) [Volume fraction] 25.9 % Low 40.0-52.0 [facility] Comment on above: Performed By: #### L AB294 ####Circuit Court Magistrate: DOMENICA JARA ([id number])[address] Hemoglobin (Bld) [Mass/Vol] 7.7 g/dL Low 13.0-18.0 [facility] Comment on above: Performed By: #### L AB294 ####Circuit Court Magistrate: DOMENICA JARA ([phone])[address] MCH (RBC) [Entitic mass] 29.3 pg Normal 26.0-34.0 [facility] Comment on above: Performed By: #### L AB294 ####Circuit Court Magistrate: DOMENICA JARA ([phone])[address] MCHC 29.7 % Low 30.5-36.0 [facility] Comment on above: Performed By: #### L AB294 ####Circuit Court Magistrate: DOMENICA JARA ([phone])[address] MCV (RBC) [Entitic vol] 98.5 fL Normal 77.0-99.[address] [facility] Comment on above: Performed By: #### L AB294 ####Circuit Court Magistrate: DOMENICA JARA ([id number])[facility] ([facility])[address] [place] [address] Platelet mean volume (Bld) [Entitic vol] 9.3 fL Normal 9.0-12.7 [facility] Comment on above: Performed By: #### L AB294 ####Circuit Court Magistrate: DOMENICA JARA ([id number])[facility] ([facility])[address] [place] [address] Platelets (Bld) [#/Vol] 324 10*3/uL Normal 140-440 [facility] Comment on above: Performed By: #### L AB294 ####Circuit Court Magistrate: DOMENICA JARA ([id number])[facility] ([facility])[address] [place] [address] RBC (Bld) [#/Vol] 2.63 10*6/uL Low 4.40-5.90 [facility] Comment on above: Performed By: #### L AB294 ####Circuit Court Magistrate: DOMENICA JARA ([id number])[facility] ([facility])[address] [place] [address] WBC (Bld) [#/Vol] 7.7 10*3/uL Normal 3.6-10.7 [facility] Comment on above: Performed By: #### L AB294 ####Circuit Court Magistrate: DOMENICA JARA ([id number])[facility] ([facility])[address] [place] [address] CBC panel Auto (Bld)on 03-04 Erythrocyte distribution width (RBC) [Ratio] 21.4 % High 11.5 - 15.0 % [facility] Hematocrit (Bld) [Volume fraction] 25.9 % Low 40.0 - 52.0 % [facility] Hemoglobin (Bld) [Mass/Vol] 7.7 g/dL Low 13.0 - 18.0 g/dL [facility] Interpretation and review of laboratory results Abnormal [facility] MCH (RBC) [Entitic mass] 29.3 pg 26. 0 - 34.0 pg [facility] MCHC (RBC) [Mass/Vol] 29.7 % Low 30.5 - 36.0 % [facility] MCV (RBC) [Entitic vol] 98.5 fL 77.0 - 99.0 fL [facility] Platelet mean volume (Bld) [Entitic vol] 9.3 fL 9.0 - 12.7 fL [facility] Platelets (Bld) [#/Vol] 324 10*3/uL 140 - 440 10*3/uL [facility] RBC (Bld) [#/Vol] 2.63 10*6/uL Low 4.40 - 5.9 0 10*6/uL [facility] WBC (Bld) [#/Vol] 7.7 10*3/uL 3.6 - 10.7 10*3/uL [facility] - Coagulationon 0 03-04-2025 PT Coag (Bld) [Time] 16.6 s High 9.0 - 12.0 s [facility] PT Coag (Bld) [Time] 15.5 s High 9.0 - 12.0 s [facility] No Panel Informationon 03-04 Interpretation and review of laboratory results Abnormal [facility] PROTHROMBIN TIMEon INR Coag (PPP) [Relative time] 1.6 {INR} High 0.9-1.1 [facility] Comment on above: Result Comment: Vaughn [...] Myocardial Infarction Performed By: #### L AB320 ####Circuit Court Magistrate: DOMENICA JARA ([id number])[facility] ([facility] PT Coag (PPP) [Time] 16.6 s High 9.0-12.0 [facility] Comment on above: Performed By: #### L AB320 ####Circuit Court Magistrate: DOMENICA [id number])[facility])[address] [place] [address] INR Coag (PPP) [Relative time] 1.5 {INR} High 0.9-1.1 [facility] Comment on above: Result Comment: Vaughn [...] Myocardial Infarction Performed By: #### L AB325, [id number] ####Circuit Court Magistrate: DOMENICA JARA ([phone])[facility])[address] [place] [address] PT Coag (PPP) [Time] 15.5 s High 9.0-12.0 [facility] Comment on above: Performed By: #### Tameka AB325, [id number] ####Circuit Court Magistrate: DOMENICA JARA ([phone])[facility])[address] [place] [address] PT Coag (Bld) [Time]on 03-04 INR Coag (PPP) [Relative time] 1.6 {INR} High 0.9 - 1.1 [facility] Interpretation and review of laboratory results Abnormal [facility] INR Coag (PPP) [Relative time] 1.5 {INR} High 0.9 - 1.1 [facility] Progress Noteon 03-04-2025 Progress [facility] Progress Note Normal [facility] Progress Note Normal [facility] aPTT Coag (Bld) [Time]on aPTT Coag (PPP) [Time] 52.2 s High 20.0 - 30.5 s [facility] 30on 03-03-2025 30 Normal [facility] 30 Normal [facility] 30 Normal [facility] [id number] 03-03-2025 [id number] Normal [facility] APTTon 03-03-2025 aPTT Coag (Bld) [Time] 66.2 s High 20.0-30.5 [facility] Comment on above: Result Comment: ARPAN Kaplan COMMENTS:NOTE: The therapeutic time for Heparin anticoagulation, based on Xa activity inhibition, is an APTT of 46-80 seconds. Performed By: #### L AB325 ####Circuit Court Magistrate: DOMENICA JARA ([phone])[facility] ([facility])[address] [place] [address] aPTT Coag (Bld) [Time] 52.4 s High 20.0-30.5 [facility] Comment on above: Result Comment: ARPAN Kaplan COMMENTS:NOTE: The therapeutic time for Heparin anticoagulation, based on Xa activity inhibition, is an APTT of 46-80 seconds. Performed By: #### L AB325, [id number] ####Circuit Court Magistrate: DOMENICA JARA ([id number])[facility] ([facility])[address] [place] [address] BASIC METABOLIC PANELon 06-0 Anion gap [Moles/Vol] 10 mmol/L Normal 3-13 [facility] Comment on above: Performed By: #### L AB15 ####Circuit Court Magistrate: DOMENICA JARA ([phone])[facility] ([facility])[address] [place] [address] Calcium [Mass/Vol] 9.2 mg/dL Normal 8.4-10.[address] [facility] Comment on above: Performed By: #### L AB15 ####Circuit Court Magistrate: DOMENICA JARA ([phone])[facility] ([facility])[address] [place] [address] [place] Chloride [Moles/Vol] 100 mmol/L Normal 98-107 [facility] Comment on above: Performed By: #### L AB15 ####Circuit Court Magistrate: DOMENICA JARA ([phone])[facility] ([facility])[address] [place] [address] CO2 [Moles/Vol] 29 mmol/L Normal 22-29 [facility] Comment on above: Performed By: #### L AB15 ####Circuit Court Magistrate: DOMENICA JARA ([phone])[facility])[address] [place] [address] Creatinine [Mass/Vol] 1.92 mg/dL High 0.72-1.25 [facility] Comment on above: Performed By: #### L AB15 ####Circuit Court Magistrate: DOMENICA JARA ([phone])[facility])[address] [place] [address] GLOMERULAR FILTRATION RATE ML/MIN/1.73 SQ M.PREDICTED 39.6 mL/min/1.73m*2 Low >60.0 [facility] Comment on above: Result Comment: Calc ulation based on the Chronic Kidney Disease Epidemiology Collaboration (CKD-EPI) equation refit without adjustment for race Performed By: #### L AB15 ####Circuit Court Magistrate: DOMENICA JARA ([id number])[facility] ([facility])[address] [place] [address] Glucose [Mass/Vol] 71 mg/dL Low 74-100 [facility] Comment on above: Performed By: #### L AB15 ####Circuit Court Magistrate: DOMENICA JARA ([id number])[facility])[address] [place] [address] Potassium [Moles/Vol] 4.8 mmol/L Normal 3.5-5.1 [facility] Comment on above: Result Comment: [facility] potassium values may be up to 0.5 mmol/L lower than serum values. Performed By: #### L AB15 ####Circuit Court Magistrate: DOMENICA JARA ([phone])[facility])[address] [place] [address] Sodium [Moles/Vol] 139 mmol/L Normal 136-145 [facility] Comment on above: Performed By: #### L AB15 ####Circuit Court Magistrate: DOMENICA JARA ([phone])[facility])[address] [place] [address] [place] Urea nitrogen [Mass/Vol] 14 mg/dL Normal 9-23 [facility] Comment on above: Performed By: #### L AB15 ####Circuit Court Magistrate: DOMENICA JARA ([id number])[facility])[address] [place] [address] Anion gap [Moles/Vol] 11 mmol/L Normal 3-13 [facility] Comment on above: Performed By: #### L AB15 ####Circuit Court Magistrate: DOMENICA JARA ([phone])[facility])[address] [place] [address] Calcium [Mass/Vol] 9.8 mg/dL Normal 8.4-10.2 [facility] Comment on above: Performed By: #### L AB15 ####Circuit Court Magistrate: DOMENICA JARA ([phone])[facility])[address] [place] [address] Chloride [Moles/Vol] 101 mmol/L Normal 98-107 [facility] Comment on above: Performed By: #### L AB15 ####Circuit Court Magistrate: DOMENICA JARA ([phone])[facility])[address] [place] [address] CO2 [Moles/Vol] 28 mmol/L Normal 22-29 [facility] Comment on above: Performed By: #### L AB15 ####Circuit Court Magistrate: DOMENICA JARA ([id number])[facility])[address] [place] [address] Creatinine [Mass/Vol] 3.21 mg/dL High 0.72-1.25 [facility] Comment on above: Performed By: #### L AB15 ####Circuit Court Magistrate: DOMENICA JARA ([phone])[facility])[address] [place] [address] GLOMERULAR FILTRATION RATE ML/MIN/1.73 SQ M.PREDICTED 21.4 mL/min/1.73m*2 Low >60.0 [facility] Comment on above: Result Comment: Calc ulation based on the Chronic Kidney Disease Epidemiology Collaboration (CKD-EPI) equation refit without adjustment for race Performed By: #### L AB15 ####Circuit Court Magistrate: DOMENICA JARA ([phone])[facility])[address] [place] [address] Glucose [Mass/Vol] 93 mg/dL Normal 74-100 [facility] Comment on above: Performed By: #### L AB15 ####Circuit Court Magistrate: DOMENIAC JARA ([id number])[facility])[address] [place] [address] Potassium [Moles/Vol] 6.2 mmol/L Critically high 3.5-5.1 [facility] Comment on above: Result Comment: Plas ma potassium values may be up to 0.5 mmol/L lower than serum values. Performed By: #### L AB15 ####Circuit Court Magistrate: DOMENICA JARA ([id number])[facility])[address] [place] [address] Sodium [Moles/Vol] 140 mmol/L Normal 136-145 [facility] Comment on above: Performed By: #### L AB15 ####Circuit Court Magistrate: DOMENICA JARA ([id number])[address] Urea nitrogen [Mass/Vol] 26 mg/dL High 9-23 [facility] Comment on above: Performed By: #### L AB15 ####Circuit Court Magistrate: DOMENICA JARA ([id number])[address] Basic metabolic 1998 panelOr dered By: Piedad Alvarado on 03-03-2025 Anion gap [Moles/Vol] 10 mmol/L 3 - 13 mmol/L [facility] Calcium [Mass/Vol] 9.2 mg/dL 8.4 - 10. 2 mg/dL [facility] Chloride [Moles/Vol] 100 mmol/L 98 - 10 7 mmol/L [facility] CO2 [Moles/Vol] 29 mmol/L 22 - 29 mmol/L [facility] Creatinine [Mass/Vol] 1.92 mg/dL High 0.72 - 1.25 mg/dL [facility] GFR/1.73 sq M.predicted (S/P/Bld) [Vol rate/Area] 39.6 mL/min Low - PINF [facility] Glucose [Mass/Vol] 71 mg/dL Low 74 - 100 mg/dL [facility] Interpretation and review of laboratory results Abnormal [facility] Potassium [Moles/Vol] 4.8 mmol/L 3.5 - 5.1 mmol/L [facility] Sodium [Moles/Vol] 139 mmol/L 136 - 145 mmol/L [facility] Urea nitrogen [Mass/Vol] 14 mg/dL 9 - 23 mg/d L [facility] Basic metabolic 1998 panelOr dered By: Jenni Romano on 03-03-2025 Anion gap [Moles/Vol] 11 mmol/L 3 - 13 mmol/L [facility] Calcium [Mass/Vol] 9.8 mg/dL 8.4 - 10. 2 mg/dL [facility] Chloride [Moles/Vol] 101 mmol/L 98 - 10 7 mmol/L [facility] CO2 [Moles/Vol] 28 mmol/L 22 - 29 mmol/L [facility] Creatinine [Mass/Vol] 3.21 mg/dL High 0.72 - 1.25 mg/dL [facility] GFR/1.73 sq M.predicted (S/P/Bld) [Vol rate/Area] 21.4 mL/min Low - PINF [facility] Glucose [Mass/Vol] 93 mg/dL 74 - 100 mg/dL [facility] Interpretation and review of laboratory results Abnormal [facility] Potassium [Moles/Vol] 6.2 mmol/L Critically high 3.5 - 5.1 mmol/L [facility] Sodium [Moles/Vol] 140 mmol/L 136 - 145 mmol/L [facility] Urea nitrogen [Mass/Vol] 26 mg/dL High 9 - 23 mg/d L [facility] CBC (HEMOGRAM)on 03-03-2025 Erythrocyte distribution width (RBC) [Ratio] 20.9 % High 11.5-15.0 [facility] Comment on above: Performed By: #### L [id number] ####Circuit Court Magistrate: DOMENICA JARA ([id number])[facility] ([address] Hematocrit (Bld) [Volume fraction] 27.8 % Low 40.0-52.0 [facility] Comment on above: Performed By: #### L [id number] ####Circuit Court Magistrate: DOMENICA JARA ([id number])[facility])[address] [place] [address] Hemoglobin (Bld) [Mass/Vol] 8.3 g/dL Low 13.0-18.0 [facility] Comment on above: Performed By: #### L [id number] ####Circuit Court Magistrate: DOMENICA JARA ([id number])[facility])[address] [place] [address] IPF 2 Normal [facility] Comment on above: Performed By: #### L [id number] ####Circuit Court Magistrate: DOMENICA JARA ([id number])[facility])[address] [place] [address] MCH (RBC) [Entitic mass] 29.5 pg Normal 26.0-34.0 [facility] Comment on above: Performed By: #### L [id number] ####Circuit Court Magistrate: DOMENICA JARA ([id number])[facility])[address] [place] [address] MCHC 29.9 % Low 30.5-36.0 [facility] Comment on above: Performed By: #### L [id number] ####Circuit Court Magistrate: DOMENICA JARA ([id number])[facility])[address] [place] [address] MCV (RBC) [Entitic vol] 98.9 fL Normal 77.0-99.0 S [facility] Comment on above: Performed By: #### L [id number] ####Circuit Court Magistrate: DOMENICA JARA ([id number])[facility])[address] [place] [address] Platelet mean volume (Bld) [Entitic vol] 9.1 fL Normal 9.0-12.7 [facility] Comment on above: Performed By: #### L [id number] ####Circuit Court Magistrate: DOMENICA JARA ([id number])[facility])[address] [place] [address] Platelets (Bld) [#/Vol] 397 10*3/uL Normal 140-440 [facility] Comment on above: Performed By: #### L [id number] ####Circuit Court Magistrate: DOMENICA JARA ([id number])[facility])[address] [place] [address] RBC (Bld) [#/Vol] 2.81 10*6/uL Low 4.40-5.90 [facility] Comment on above: Performed By: #### L [id number] ####Circuit Court Magistrate: DOMENICA JARA ([id number])[facility])[address] [place] [address] WBC (Bld) [#/Vol] 8.9 10*3/uL Normal 3.6-10.7 [facility] Comment on above: Performed By: #### L [id number] ####Circuit Court Magistrate: DOMENICA JARA ([id number])[facility])[address] [place] [address] CBC panel Auto (Bld)Ordered By: Anu Graham on 03-03-2025 Erythrocyte distribution width (RBC) [Ratio] 20.9 % High 11.5 - 15.0 % [facility] Hematocrit (Bld) [Volume fraction] 27.8 % Low 40.0 - 52.0 % [facility] Hemoglobin (Bld) [Mass/Vol] 8.3 g/dL Low 13.0 - 18.0 g/dL [facility] Interpretation and review of laboratory results Abnormal [facility] IPF 2 [facility] MCH (RBC) [Entitic mass] 29.5 pg 26. 0 - 34.0 pg [facility] MCHC (RBC) [Mass/Vol] 29.9 % Low 30.5 - 36.0 % [facility] MCV (RBC) [Entitic vol] 98.9 fL 77.0 - 99.0 fL [facility] Platelet mean volume (Bld) [Entitic vol] 9.1 fL 9.0 - 12.7 fL [facility] Platelets (Bld) [#/Vol] 397 10*3/uL 140 - 440 10*3/uL [facility] RBC (Bld) [#/Vol] 2.81 10*6/uL Low 4.40 - 5.9 0 10*6/uL [facility] WBC (Bld) [#/Vol] 8.9 10*3/uL 3.6 - 10.7 10*3/uL [facility] Laboratory - Coagulationon 0 03-03-2025 PT Coag (Bld) [Time] 16.2 s High 9.0 - 12.0 s [facility] No Panel Informationon 03-03 Interpretation and review of laboratory results Abnormal [facility] Nursing Noteon 03-03-2025 Nursing Note Normal [facility] Nursing Note In patient's chart, d/t patient being on his call light excessively and finally telling me he wants something for pain. Please see eMAR for administration Normal [facility] PROTHROMBIN TIMEon INR Coag (PPP) [Relative time] 1.6 {INR} High 0.9-1.1 [facility] Comment on above: Result Comment: Vaughn [...] Myocardial Infarction Performed By: #### Tameka AB325, [id number] ####Circuit Court Magistrate: DOMENICA JARA ([id number])[facility] ([address] PT Coag (PPP) [Time] 16.2 s High 9.0-12.0 [facility] Comment on above: Performed By: #### Tameka AB325, [id number] ####Circuit Court Magistrate: DOMENICA JARA ([id number])[facility])[address] [place] [address] PT Coag (Bld) [Time]on 03-03 INR Coag (PPP) [Relative time] 1.6 {INR} High 0.9 - 1.1 [facility] Progress Noteon 03-03-2025 Progress Note Normal [facility] Progress Note Normal [facility] Progress Note Normal [facility] aPTT Coag (Bld) [Time]on aPTT Coag (PPP) [Time] 66.2 s High 20.0 - 30.5 s [facility] Interpretation and review of laboratory results Abnormal [facility] aPTT Coag (PPP) [Time] 52.4 s High 20.0 - 30.5 s [facility] 30on 03-02-2025 30 Switch to augmentin 500mg q24 (to be taken after HD on HD days) until 03/10/25. Team aware of discharge plan Waiting for INR to be in therapeutic range ID will sign off Please re consult if needed Hussain Quintana MD 03/02/2025 12:43 PM Normal [facility] 30 Normal [facility] [id number] 03-02-2025 [id number] Normal [facility] APTTon 03-02-2025 aPTT Coag (Bld) [Time] 68.9 s High 20.0-30.5 [facility] Comment on above: Result Comment: ARPAN [facility] COMMENTS:NOTE: The therapeutic time for Heparin anticoagulation, based on Xa activity inhibition, is an APTT of 46-80 seconds. Performed By: #### L AB325 ####Circuit Court Magistrate: DOMENICA JARA ([id number])[address] [address] [facility] aPTT Coag (Bld) [Time] 44.7 s High 20.0-30.5 [facility] Comment on above: Result Comment: ARPAN [facility] COMMENTS:NOTE: The therapeutic time for Heparin anticoagulation, based on Xa activity inhibition, is an APTT of 46-80 seconds. Performed By: #### L AB325 ####Circuit Court Magistrate: DOMENICA JARA ([id number])[facility] [address] aPTT Coag (Bld) [Time] 56.5 s High 20.0-30.5 [facility] Comment on above: Result Comment: ARPAN Kaplan COMMENTS:NOTE: The therapeutic time for Heparin anticoagulation, based on Xa activity inhibition, is an APTT of 46-80 seconds. Performed By: #### L AB325 ####Circuit Court Magistrate: DOMENICA JARA ([phone])[facility])[address] [place] [address] aPTT Coag (Bld) [Time] 44.7 s High 20.0-30.5 [facility] Comment on above: Result Comment: ARPAN Kaplan COMMENTS:NOTE: The therapeutic time for Heparin anticoagulation, based on Xa activity inhibition, is an APTT of 46-80 seconds. Performed By: #### L [id number], [id number] ####Circuit Court Magistrate: DOMENICA JARA ([id number])[facility])[address] [place] [address] BASIC METABOLIC PANELon 06-0 Anion gap [Moles/Vol] 11 mmol/L Normal 3-13 [facility] Comment on above: Performed By: #### L AB15 ####Circuit Court Magistrate: DOMENICA JARA ([id number])[facility])[address] [place] [address] Calcium [Mass/Vol] 9.2 mg/dL Normal 8.4-10.2 [facility] Comment on above: Performed By: #### L AB15 ####Circuit Court Magistrate: DOMENICA JARA ([id number])[facility])[address] [place] [address] Chloride [Moles/Vol] 102 mmol/L Normal 98-107 [facility] Comment on above: Performed By: #### L AB15 ####Circuit Court Magistrate: DOMENICA JARA ([phone])[facility])[address] [place] [address] CO2 [Moles/Vol] 26 mmol/L Normal 22-29 [facility] Comment on above: Performed By: #### L AB15 ####Circuit Court Magistrate: DOMENICA JARA ([id number])[facility])[address] [place] [address] Creatinine [Mass/Vol] 2.53 mg/dL High 0.72-1.25 [facility] Comment on above: Performed By: #### L AB15 ####Circuit Court Magistrate: DOMENICA JARA ([id number])[facility])[address] [place] [address] GLOMERULAR FILTRATION RATE ML/MIN/1.73 SQ M.PREDICTED 28.5 mL/min/1.73m*2 Low >60.0 [facility] Comment on above: Result Comment: Calc ulation based on the Chronic Kidney Disease Epidemiology Collaboration (CKD-EPI) equation refit without adjustment for race Performed By: #### L AB15 ####Circuit Court Magistrate: DOMENICA JARA ([id number])[facility])[address] [place] [address] Glucose [Mass/Vol] 107 mg/dL High 74-100 [facility] Comment on above: Performed By: #### L AB15 ####Circuit Court Magistrate: DOMENICA JARA ([id number])[facility])[address] [place] [address] Potassium [Moles/Vol] 4.6 mmol/L Normal 3.5-5.1 [facility] Comment on above: Result Comment: [facility] potassium values may be up to 0.5 mmol/L lower than serum values. Performed By: #### L AB15 ####Circuit Court Magistrate: DOMENICA JARA ([id number])[facility])[address] [place] [address] [place] Sodium [Moles/Vol] 139 mmol/L Normal 136-145 [facility] Comment on above: Performed By: #### L AB15 ####Circuit Court Magistrate: DOMENICA JARA ([id number])[facility])[address] [place] [address] Urea nitrogen [Mass/Vol] 16 mg/dL Normal 9-23 [facility] Comment on above: Performed By: #### L AB15 ####Circuit Court Magistrate: DOMENICA JARA ([phone])[facility])[address] [place] [address] Basic metabolic 1998 panelon 03-02-2025 Anion gap [Moles/Vol] 11 mmol/L 3 - 13 mmol/L [facility] Calcium [Mass/Vol] 9.2 mg/dL 8.4 - 10. 2 mg/dL [facility] Chloride [Moles/Vol] 102 mmol/L 98 - 10 7 mmol/L [facility] CO2 [Moles/Vol] 26 mmol/L 22 - 29 mmol/L [facility] Creatinine [Mass/Vol] 2.53 mg/dL High 0.72 - 1.25 mg/dL [facility] GFR/1.73 sq M.predicted (S/P/Bld) [Vol rate/Area] 28.5 mL/min Low - PINF [facility] Glucose [Mass/Vol] 107 mg/dL High 74 - 100 mg/dL [facility] Interpretation and review of laboratory results Abnormal [facility] Potassium [Moles/Vol] 4.6 mmol/L 3.5 - 5.1 mmol/L [facility] Sodium [Moles/Vol] 139 mmol/L 136 - 145 mmol/L [facility] Urea nitrogen [Mass/Vol] 16 mg/dL 9 - 23 mg/d L [facility] CBC (HEMOGRAM)on 03-02-2025 Erythrocyte distribution width (RBC) [Ratio] 20.1 % High 11.5-15.0 [facility] Comment on above: Performed By: #### L [id number] ####Circuit Court Magistrate: DOMENICA JARA ([id number])[facility])[address] [place] [address] Hematocrit (Bld) [Volume fraction] 25.4 % Low 40.0-52.0 [facility] Comment on above: Performed By: #### L [id number] ####Circuit Court Magistrate: DOMENICA JARA ([id number])[facility])[address] [place] [address] Hemoglobin (Bld) [Mass/Vol] 7.7 g/dL Low 13.0-18.0 [facility] Comment on above: Performed By: #### L [id number] ####Circuit Court Magistrate: DOMENICA JARA ([id number])[facility])[address] [place] [address] IPF 2 Normal [facility] Comment on above: Performed By: #### L [id number] ####Circuit Court Magistrate: DOMENICA JARA ([id number])[facility])[address] [place] [address] MCH (RBC) [Entitic mass] 29.7 pg Normal 26.0-34.0 [facility] Comment on above: Performed By: #### L [id number] ####Circuit Court Magistrate: DOMENICA JARA ([id number])[facility])[address] [place] [address] MCHC 30.3 % Low 30.5-36.0 [facility] Comment on above: Performed By: #### L [id number] ####Circuit Court Magistrate: DOMENICA JARA ([id number])[facility])[address] [place] [address] MCV (RBC) [Entitic vol] 98.1 fL Normal 77.0-99.0 S [facility] Comment on above: Performed By: #### L [id number] ####Circuit Court Magistrate: DOMENICA JARA ([id number])[facility])[address] [place] [address] Platelet mean volume (Bld) [Entitic vol] 9.0 fL Normal 9.0-12.7 [facility] Comment on above: Performed By: #### L [id number] ####Circuit Court Magistrate: DOMENICA JARA ([id number])[facility])[address] [place] [address] Platelets (Bld) [#/Vol] 354 10*3/uL Normal 140-440 [facility] Comment on above: Performed By: #### L [id number] ####Circuit Court Magistrate: DOMENICA JARA ([id number])[facility] ([facility])[address] [place] [address] RBC (Bld) [#/Vol] 2.59 10*6/uL Low 4.40-5.90 [facility] Comment on above: Performed By: #### L [id number] ####Circuit Court Magistrate: DOMENICA JARA ([id number])[facility])[address] [place] [address] WBC (Bld) [#/Vol] 7.4 10*3/uL Normal 3.6-10.7 [facility] Comment on above: Performed By: #### L [id number] ####Circuit Court Magistrate: DOMENICA JARA ([id number])[facility])[address] [place] [address] CBC panel Auto (Bld)Ordered By: Callie Steele on 03-02-2025 Erythrocyte distribution width (RBC) [Ratio] 20.1 % High 11.5 - 15.0 % [facility] Hematocrit (Bld) [Volume fraction] 25.4 % Low 40.0 - 52.0 % [facility] Hemoglobin (Bld) [Mass/Vol] 7.7 g/dL Low 13.0 - 18.0 g/dL [facility] Interpretation and review of laboratory results Abnormal [facility] IPF 2 [facility] MCH (RBC) [Entitic mass] 29.7 pg 26. 0 - 34.0 pg [facility] MCHC (RBC) [Mass/Vol] 30.3 % Low 30.5 - 36.0 % [facility] MCV (RBC) [Entitic vol] 98.1 fL 77.0 - 99.0 fL [facility] Platelet mean volume (Bld) [Entitic vol] 9 fL 9.0 - 12.7 fL [facility] Platelets (Bld) [#/Vol] 354 10*3/uL 140 - 440 10*3/uL [facility] RBC (Bld) [#/Vol] 2.59 10*6/uL Low 4.40 - 5.9 0 10*6/uL [facility] WBC (Bld) [#/Vol] 7.4 10*3/uL 3.6 - 10.7 10*3/uL [facility] - Coagulationon 0 03-02-2025 PT Coag (Bld) [Time] 14.7 s High 9.0 - 12.0 s [facility] No Panel Informationon 03-02 Interpretation and review of laboratory results Abnormal [facility] PROTHROMBIN TIMEon INR Coag (PPP) [Relative time] 1.4 {INR} High 0.9-1.1 [facility] Comment on above: Result Comment: Vaughn [...] Myocardial Infarction Performed By: #### Tameka AB320, [id number] ####Circuit Court Magistrate: DOMENICA JARA ([id number])[facility])[address] [place] [address] PT Coag (PPP) [Time] 14.7 s High 9.0-12.0 [facility] Comment on above: Performed By: #### Tameka AB320, [id number] ####Circuit Court Magistrate: DOMENICA JARA ([id number])[facility])[address] [place] [address] PT Coag (Bld) [Time]on 03-02 INR Coag (PPP) [Relative time] 1.4 {INR} High 0.9 - 1.1 [facility] Progress Noteon 03-02-2025 Progress Note Normal [facility] Progress Note Normal [facility] Progress Note Normal [facility] Progress Note Normal [facility] aPTT Coag (Bld) [Time]on aPTT Coag (PPP) [Time] 68.9 s High 20.0 - 30.5 s [facility] Interpretation and review of laboratory results Abnormal [facility] aPTT Coag (PPP) [Time] 44.7 s High 20.0 - 30.5 s [facility] Interpretation and review of laboratory results Abnormal [facility] aPTT Coag (PPP) [Time] 56.5 s High 20.0 - 30.5 s [facility] Interpretation and review of laboratory results Abnormal [facility] aPTT Coag (PPP) [Time] 44.7 s High 20.0 - 30.5 s [facility] 30on 03-01-2025 30 Normal [facility] [id number] 03-01-2025 [id number] Discharge med list and updated notes transmitted to [facility] via [employer] per TCC request. Normal [facility] [id number] Normal [facility] APTTon 03-01-2025 aPTT Coag (Bld) [Time] 51.3 s High 20.0-30.[address] [facility] Comment on above: Result Comment: ARPAN Kaplan COMMENTS:NOTE: The therapeutic time for Heparin anticoagulation, based on Xa activity inhibition, is an APTT of 46-80 seconds. Performed By: #### L [id number], [id number] ####Circuit Court Magistrate: DOMENICA JARA ([id number])[facility])[address] [place] [address] BASIC METABOLIC PANELon 06-0 Anion gap [Moles/Vol] 13 mmol/L Normal 3-13 [facility] Comment on above: Performed By: #### L AB15 ####Circuit Court Magistrate: DOMENICA JARA ([id number])[facility])[address] [place] [address] Calcium [Mass/Vol] 9.6 mg/dL Normal 8.4-10.2 [facility] Comment on above: Performed By: #### L AB15 ####Circuit Court Magistrate: DOMENICA JARA ([id number])[facility])[address] [place] [address] [place] Chloride [Moles/Vol] 102 mmol/L Normal 98-107 [facility] Comment on above: Performed By: #### L AB15 ####Circuit Court Magistrate: DOMENICA JARA ([id number])[facility])[address] [place] [address] CO2 [Moles/Vol] 23 mmol/L Normal 22-29 [facility] Comment on above: Performed By: #### L AB15 ####Circuit Court Magistrate: DOMENICA JARA ([id number])[facility])[address] [place] [address] Creatinine [Mass/Vol] 3.73 mg/dL High 0.72-1.25 [facility] Comment on above: Performed By: #### L AB15 ####Circuit Court Magistrate: DOMENICA JARA ([id number])[facility])[address] [place] [address] GLOMERULAR FILTRATION RATE ML/MIN/1.73 SQ M.PREDICTED 17.9 mL/min/1.73m*2 Low >60.0 [facility] Comment on above: Result Comment: Calc ulation based on the Chronic Kidney Disease Epidemiology Collaboration (CKD-EPI) equation refit without adjustment for race Performed By: #### L AB15 ####Circuit Court Magistrate: DOMENICA JARA ([phone])[facility] C[facility])[address] [place] [address] Glucose [Mass/Vol] 87 mg/dL Normal 74-100 [facility] Comment on above: Performed By: #### L AB15 ####Circuit Court Magistrate: DOMENICA JARA ([id number])[facility])[address] [place] [address] Potassium [Moles/Vol] 5.8 mmol/L High 3.5-5.1 [facility] Comment on above: Result Comment: [facility] potassium values may be up to 0.5 mmol/L lower than serum values. Performed By: #### L AB15 ####Circuit Court Magistrate: DOMENICA JARA ([phone])[facility])[address] [place] [address] Sodium [Moles/Vol] 138 mmol/L Normal 136-145 [facility] Comment on above: Performed By: #### L AB15 ####Circuit Court Magistrate: DOMENICA JARA ([id number])[address] Urea nitrogen [Mass/Vol] 28 mg/dL High 9-23 [facility] Comment on above: Performed By: #### L AB15 ####Circuit Court Magistrate: DOMENICA JARA ([id number])[facility])[address] [place] [address] Basic metabolic 1998 panelon 03-01-2025 Anion gap [Moles/Vol] 13 mmol/L 3 - 13 mmol/L [facility] Calcium [Mass/Vol] 9.6 mg/dL 8.4 - 10. 2 mg/dL [facility] Chloride [Moles/Vol] 102 mmol/L 98 - 10 7 mmol/L [facility] CO2 [Moles/Vol] 23 mmol/L 22 - 29 mmol/L [facility] Creatinine [Mass/Vol] 3.73 mg/dL High 0.72 - 1.25 mg/dL [facility] GFR/1.73 sq M.predicted (S/P/Bld) [Vol rate/Area] 17.9 mL/min Low - PINF [facility] Glucose [Mass/Vol] 87 mg/dL 74 - 100 mg/dL [facility] Interpretation and review of laboratory results Abnormal [facility] Potassium [Moles/Vol] 5.8 mmol/L High 3.5 - 5.1 mmol/L [facility] Sodium [Moles/Vol] 138 mmol/L 136 - 145 mmol/L [facility] Urea nitrogen [Mass/Vol] 28 mg/dL High 9 - 23 mg/d L [facility] CBC (HEMOGRAM)on 03-01-2025 Erythrocyte distribution width (RBC) [Ratio] 19.7 % High 11.5-15.0 [facility] Comment on above: Performed By: #### L [id number] ####Circuit Court Magistrate: DOMENICA JARA ([id number])[facility])[address] [place] [address] Hematocrit (Bld) [Volume fraction] 26.9 % Low 40.0-52.0 [facility] Comment on above: Performed By: #### L [id number] ####Circuit Court Magistrate: DOMENICA JARA ([id number])[facility])[address] [place] [address] Hemoglobin (Bld) [Mass/Vol] 8.0 g/dL Low 13.0-18.0 [facility] Comment on above: Performed By: #### L [id number] ####Circuit Court Magistrate: DOMENICA JARA ([phone])[facility] [place] [address] MCH (RBC) [Entitic mass] 28.8 pg Normal 26.0-34.0 [facility] Comment on above: Performed By: #### L [id number] ####Circuit Court Magistrate: DOMENICA JARA ([phone])[facility])[address] [place] [address] MCHC 29.7 % Low 30.5-36.0 [facility] Comment on above: Performed By: #### L [id number] ####Circuit Court Magistrate: DOMENICA JARA ([phone])[facility])[address] [place] [address] MCV (RBC) [Entitic vol] 96.8 fL Normal 77.0-99.0 S [facility] Comment on above: Performed By: #### L [id number] ####Circuit Court Magistrate: DOMENICA JARA ([id number])[facility])[address] [place] [address] Platelet mean volume (Bld) [Entitic vol] 8.7 fL Low 9.0-12.7 [facility] Comment on above: Performed By: #### L [id number] ####Circuit Court Magistrate: DOMENICA JARA ([id number])[facility])[address] [place] [address] Platelets (Bld) [#/Vol] 306 10*3/uL Normal 140-440 [facility] Comment on above: Performed By: #### L [id number] ####Circuit Court Magistrate: DOMENICA JARA ([phone])[facility])[address] [place] [address] RBC (Bld) [#/Vol] 2.78 10*6/uL Low 4.40-5.90 [facility] Comment on above: Performed By: #### L [id number] ####Circuit Court Magistrate: DOMENICA JARA ([id number])[facility])[address] [place] [address] WBC (Bld) [#/Vol] 7.5 10*3/uL Normal 3.6-10.7 [facility] Comment on above: Performed By: #### L [id number] ####Circuit Court Magistrate: DOMENICA JARA ([id number])[facility])[address] [place] [address] CBC panel Auto (Bld)on 03-01 Erythrocyte distribution width (RBC) [Ratio] 19.7 % High 11.5 - 15.0 % [facility] Hematocrit (Bld) [Volume fraction] 26.9 % Low 40.0 - 52.0 % [facility] Hemoglobin (Bld) [Mass/Vol] 8 g/dL Low 13.0 - 18.0 g/dL [facility] Interpretation and review of laboratory results Abnormal [facility] MCH (RBC) [Entitic mass] 28.8 pg 26. 0 - 34.0 pg [facility] MCHC (RBC) [Mass/Vol] 29.7 % Low 30.5 - 36.0 % [facility] MCV (RBC) [Entitic vol] 96.8 fL 77.0 - 99.0 fL [facility] Platelet mean volume (Bld) [Entitic vol] 8.7 fL Low 9.0 - 12.7 fL [facility] Platelets (Bld) [#/Vol] 306 10*3/uL 140 - 440 10*3/uL [facility] RBC (Bld) [#/Vol] 2.78 10*6/uL Low 4.40 - 5.9 0 10*6/uL [facility] WBC (Bld) [#/Vol] 7.5 10*3/uL 3.6 - 10.7 10*3/uL [facility] Laboratory - Coagulationon 0 03-01-2025 PT Coag (Bld) [Time] 14.3 s High 9.0 - 12.0 s [facility] No Panel Informationon 03-01 Interpretation and review of laboratory results Abnormal [facility] Nursing Noteon 03-01-2025 Nursing Note Normal [facility] PROTHROMBIN TIMEon INR Coag (PPP) [Relative time] 1.4 {INR} High 0.9-1.1 [facility] Comment on above: Result Comment: Vaughn [...] Myocardial Infarction Performed By: #### Tameka AB320, [id number] ####Circuit Court Magistrate: DOMENICA JARA ([id number])[address] PT Coag (PPP) [Time] 14.3 s High 9.0-12.0 [facility] Comment on above: Performed By: #### L AB320, [id number] ####Circuit Court Magistrate: DOMENICA JARA ([id number])[facility])[address] [place] [address] PT Coag (Bld) [Time]on 03-01 INR Coag (PPP) [Relative time] 1.4 {INR} High 0.9 - 1.1 [facility] Progress Noteon 03-01-2025 Progress Note Normal [facility] Progress Note Normal [facility] Progress [facility] Normal [facility] Progress Note Normal [facility] Progress Note PHYSICAL THERAPY [facility] Name/MRN: Jair Snyder ([id number]) Date: 03/01/2025 Leaving for dialysis. Return later time/date for PT. Merlene León, JOY Normal [facility] Progress Note Normal [facility] aPTT Coag (Bld) [Time]on aPTT Coag (PPP) [Time] 51.3 s High 20.0 - 30.5 s [facility] 30on 02-28-2025 30 Normal [facility] 30 Normal [facility] [id number] 02-28-2025 [id number] Auth is back however can not discharge still on hep gtt- auth good thru 03/02- hoping by Wednesday AM . Updated snf . [facility] [phone] Transport requested in [employer] in will call per [facility]. [facility] [phone] Tasked [employer] to set up transport in will call, not ready for DC, Auth pending Normal [facility] APTTon 02-28-2025 aPTT Coag (Bld) [Time] 47.7 s High 20.0-30.[address] [facility] Comment on above: Result Comment: [facility] COMMENTS:NOTE: The therapeutic time for Heparin anticoagulation, based on Xa activity inhibition, is an APTT of 46-80 seconds. Performed By: #### L AB325, [id number] ####Circuit Court Magistrate: DOMENICA JARA ([id number])[facility] ([address] BASIC METABOLIC PANELon Anion gap [Moles/Vol] 11 mmol/L Normal 3-13 [facility] Comment on above: Performed By: #### L AB15 ####Circuit Court Magistrate: DOMENICA JARA ([id number])[facility])[address] [place] [address] Calcium [Mass/Vol] 9.3 mg/dL Normal 8.4-10.2 [facility] Comment on above: Performed By: #### L AB15 ####Circuit Court Magistrate: DOMENICA JARA ([id number])[facility])[address] [place] [address] Chloride [Moles/Vol] 100 mmol/L Normal 98-107 [facility] Comment on above: Performed By: #### L AB15 ####Circuit Court Magistrate: DOMENICA JARA ([id number])[facility])[address] [place] [address] CO2 [Moles/Vol] 27 mmol/L Normal 22-29 [facility] Comment on above: Performed By: #### L AB15 ####Circuit Court Magistrate: DOMENICA JARA ([id number])[facility])[address] [place] [address] Creatinine [Mass/Vol] 3.06 mg/dL High 0.72-1.25 [facility] Comment on above: Performed By: #### L AB15 ####Circuit Court Magistrate: DOMENICA JARA ([id number])[facility])[address] [place] [address] GLOMERULAR FILTRATION RATE ML/MIN/1.73 SQ M.PREDICTED 22.7 mL/min/1.73m*2 Low >60.0 [facility] Comment on above: Result Comment: Calc ulation based on the Chronic Kidney Disease Epidemiology Collaboration (CKD-EPI) equation refit without adjustment for race Performed By: #### L AB15 ####Circuit Court Magistrate: DOMENICA JARA ([id number])[facility])[address] [place] [address] Glucose [Mass/Vol] 94 mg/dL Normal 74-100 [facility] Comment on above: Performed By: #### L AB15 ####Circuit Court Magistrate: DOMENICA JARA ([id number])[facility])[address] [place] [address] Potassium [Moles/Vol] 5.0 mmol/L Normal 3.5-5.1 [facility] Comment on above: Result Comment: [facility] potassium values may be up to 0.5 mmol/L lower than serum values. Performed By: #### L AB15 ####Circuit Court Magistrate: DOMENICA JARA ([id number])[facility])[address] [place] [address] Sodium [Moles/Vol] 138 mmol/L Normal 136-145 [facility] Comment on above: Performed By: #### L AB15 ####Circuit Court Magistrate: DOMENICA JARA ([id number])[facility])[address] [place] [address] Urea nitrogen [Mass/Vol] 19 mg/dL Normal 9-23 [facility] Comment on above: Performed By: #### L AB15 ####Circuit Court Magistrate: DOMENICA AJRA ([id number])[facility])[address] [place] [address] Basic metabolic 1998 panelon 02-28-2025 Anion gap [Moles/Vol] 11 mmol/L 3 - 13 mmol/L [facility] Calcium [Mass/Vol] 9.3 mg/dL 8.4 - 10. 2 mg/dL [facility] Chloride [Moles/Vol] 100 mmol/L 98 - 10 7 mmol/L [facility] CO2 [Moles/Vol] 27 mmol/L 22 - 29 mmol/L [facility] Creatinine [Mass/Vol] 3.06 mg/dL High 0.72 - 1.25 mg/dL [facility] GFR/1.73 sq M.predicted (S/P/Bld) [Vol rate/Area] 22.7 mL/min Low - PINF [facility] Glucose [Mass/Vol] 94 mg/dL 74 - 100 mg/dL [facility] Interpretation and review of laboratory results Abnormal [facility] Potassium [Moles/Vol] 5 mmol/L 3.5 - 5.1 mmol/L [facility] Sodium [Moles/Vol] 138 mmol/L 136 - 145 mmol/L [facility] Urea nitrogen [Mass/Vol] 19 mg/dL 9 - 23 mg/d L [facility] CBC (HEMOGRAM)on 02-28-2025 Erythrocyte distribution width (RBC) [Ratio] 19.8 % High 11.5-15.0 [facility] Comment on above: Performed By: #### L [id number] ####Circuit Court Magistrate: DOMENICA JARA ([id number])[facility])[address] [place] [address] Hematocrit (Bld) [Volume fraction] 26.9 % Low 40.0-52.0 [facility] Comment on above: Performed By: #### L [id number] ####Circuit Court Magistrate: DOMENICA JARA ([id number])[facility])[address] [place] [address] Hemoglobin (Bld) [Mass/Vol] 8.2 g/dL Low 13.0-18.0 [facility] Comment on above: Performed By: #### L [id number] ####Circuit Court Magistrate: DOMENICA JARA ([id number])[facility])[address] [place] [address] MCH (RBC) [Entitic mass] 29.3 pg Normal 26.0-34.0 [facility] Comment on above: Performed By: #### L [id number] ####Circuit Court Magistrate: DOMENICA JARA ([id number])[facility])[address] [place] [address] MCHC 30.5 % Normal 30.5-36.0 [facility] Comment on above: Performed By: #### L [id number] ####Circuit Court Magistrate: DOMENICA JARA ([id number])[facility])[address] [place] [address] MCV (RBC) [Entitic vol] 96.1 fL Normal 77.0-99.[address] [facility] Comment on above: Performed By: #### L [id number] ####Circuit Court Magistrate: DOMENICA JARA ([id number])[facility])[address] [place] [address] Platelet mean volume (Bld) [Entitic vol] 9.0 fL Normal 9.0-12.7 [facility] Comment on above: Performed By: #### L [id number] ####Circuit Court Magistrate: DOMENICA JARA ([id number])[facility])[address] [place] [address] Platelets (Bld) [#/Vol] 324 10*3/uL Normal 140-440 [facility] Comment on above: Performed By: #### L [id number] ####Circuit Court Magistrate: DOMENICA JARA ([id number])[facility])[address] [place] [address] RBC (Bld) [#/Vol] 2.80 10*6/uL Low 4.40-5.90 [facility] Comment on above: Performed By: #### L [id number] ####Circuit Court Magistrate: DOMENICA JARA ([id number])[facility])[address] [place] [address] WBC (Bld) [#/Vol] 8.0 10*3/uL Normal 3.6-10.7 [facility] Comment on above: Performed By: #### L [id number] ####Circuit Court Magistrate: DOMENICA JARA ([id number])[facility])[address] [place] [address] CBC panel Auto (Bld)Ordered By: Giancarlo Lakhani on 02-28-2025 Erythrocyte distribution width (RBC) [Ratio] 19.8 % High 11.5 - 15.0 % [facility] Hematocrit (Bld) [Volume fraction] 26.9 % Low 40.0 - 52.0 % [facility] Hemoglobin (Bld) [Mass/Vol] 8.2 g/dL Low 13.0 - 18.0 g/dL [facility] Interpretation and review of laboratory results Abnormal [facility] MCH (RBC) [Entitic mass] 29.3 pg 26. 0 - 34.0 pg [facility] MCHC (RBC) [Mass/Vol] 30.5 % 30.5 - 36.0 % [facility] MCV (RBC) [Entitic vol] 96.1 fL 77.0 - 99.0 fL [facility] Platelet mean volume (Bld) [Entitic vol] 9 fL 9.0 - 12.7 fL [facility] Platelets (Bld) [#/Vol] 324 10*3/uL 140 - 440 10*3/uL [facility] RBC (Bld) [#/Vol] 2.8 10*6/uL Low 4.40 - 5.9 0 10*6/uL [facility] WBC (Bld) [#/Vol] 8 10*3/uL 3.6 - 10.7 10*3/uL [facility] - Coagulationon 0 02-28-2025 PT Coag (Bld) [Time] 14 s High 9.0 - 12.0 s [facility] No Panel Informationon 02-28 Interpretation and review of laboratory results Abnormal [facility] Nursing Noteon 02-28-2025 Nursing Note Normal [facility] PROTHROMBIN TIMEon INR Coag (PPP) [Relative time] 1.3 {INR} High 0.9-1.1 [facility] Comment on above: Result Comment: Vaughn [...] Myocardial Infarction Performed By: #### Tameka AB325, [id number] ####Circuit Court Magistrate: DOMENICA JARA ([id number])[address] PT Coag (PPP) [Time] 14.0 s High 9.0-12.0 [facility] Comment on above: Performed By: #### Tameka AB325, [id number] ####Circuit Court Magistrate: DOMENICA JARA ([id number])[address] PT Coag (Bld) [Time]on 02-28 INR Coag (PPP) [Relative time] 1.3 {INR} High 0.9 - 1.1 [facility] Progress Noteon 02-28-2025 Progress Note Normal [facility] Progress Note Normal [facility] Progress Note Normal [facility] Progress Note Normal [facility] aPTT Coag (Bld) [Time]on aPTT Coag (PPP) [Time] 47.7 s High 20.0 - 30.5 s [facility] 30on 02-27-2025 30 Normal [facility] 30 Normal [facility] [id number] 02-27-2025 [id number] Normal [facility] APTTon 02-27-2025 aPTT Coag (Bld) [Time] 55.6 s High 20.0-30.[address] [facility] Comment on above: Result Comment: ARPAN [facility] COMMENTS:NOTE: The therapeutic time for Heparin anticoagulation, based on Xa activity inhibition, is an APTT of 46-80 seconds. Performed By: #### L AB325, [id number] ####Circuit Court Magistrate: DOMENICA JARA ([id number])[address] Bacteria identified Cx Nom ( Bld)on 02-27-2025 Interpretation and review of laboratory results Normal [facility] Interpretation and review of laboratory results Normal [facility] CBC (HEMOGRAM)on 02-27-2025 Erythrocyte distribution width (RBC) [Ratio] 19.5 % High 11.5-15.0 [facility] Comment on above: Performed By: #### L [id number] ####Circuit Court Magistrate: DOMENICA JARA ([id number])[address] Hematocrit (Bld) [Volume fraction] 28.8 % Low 40.0-52.0 [facility] Comment on above: Performed By: #### L [id number] ####Circuit Court Magistrate: DOMENICA [id number])[address] Hemoglobin (Bld) [Mass/Vol] 8.6 g/dL Low 13.0-18.0 [facility] Comment on above: Performed By: #### L [id number] ####Circuit Court Magistrate: DOMENICA [id number])[facility])[address] [place] [address] MCH (RBC) [Entitic mass] 28.7 pg Normal 26.0-34.0 [facility] Comment on above: Performed By: #### L [id number] ####Circuit Court Magistrate: DOMENICA JARA ([id number])[facility])[address] [place] [address] MCHC 29.9 % Low 30.5-36.0 [facility] Comment on above: Performed By: #### L [id number] ####Circuit Court Magistrate: DOMENICA JARA ([id number])[facility])[address] [place] [address] MCV (RBC) [Entitic vol] 96.0 fL Normal 77.0-99.0 S [facility] Comment on above: Performed By: #### L [id number] ####Circuit Court Magistrate: DOMENICA JARA ([id number])[facility])[address] [place] [address] Platelet mean volume (Bld) [Entitic vol] 8.9 fL Low 9.0-12.7 [facility] Comment on above: Performed By: #### L [id number] ####Circuit Court Magistrate: DOMENICA JARA ([id number])[facility])[address] [place] [address] Platelets (Bld) [#/Vol] 302 10*3/uL Normal 140-440 [facility] Comment on above: Performed By: #### L [id number] ####Circuit Court Magistrate: DOMENICA JARA ([id number])[facility])[address] [place] [address] RBC (Bld) [#/Vol] 3.00 10*6/uL Low 4.40-5.90 [facility] Comment on above: Performed By: #### L [id number] ####Circuit Court Magistrate: DOMENICA JARA ([id number])[facility])[address] [place] [address] WBC (Bld) [#/Vol] 7.9 10*3/uL Normal 3.6-10.7 [facility] Comment on above: Performed By: #### L [id number] ####Circuit Court Magistrate: DOMENICA JARA ([id number])[facility] ([address] CBC panel Auto (Bld)Ordered By: Brandy Ross on 02-27-2025 Erythrocyte distribution width (RBC) [Ratio] 19.5 % High 11.5 - 15.0 % [facility] Hematocrit (Bld) [Volume fraction] 28.8 % Low 40.0 - 52.0 % [facility] Hemoglobin (Bld) [Mass/Vol] 8.6 g/dL Low 13.0 - 18.0 g/dL [facility] Interpretation and review of laboratory results Abnormal [facility] MCH (RBC) [Entitic mass] 28.7 pg 26. 0 - 34.0 pg [facility] MCHC (RBC) [Mass/Vol] 29.9 % Low 30.5 - 36.0 % [facility] MCV (RBC) [Entitic vol] 96 fL 77.0 - 99.0 fL [facility] Platelet mean volume (Bld) [Entitic vol] 8.9 fL Low 9.0 - 12.7 fL [facility] Platelets (Bld) [#/Vol] 302 10*3/uL 140 - 440 10*3/uL [facility] RBC (Bld) [#/Vol] 3 10*6/uL Low 4.40 - 5.9 0 10*6/uL [facility] WBC (Bld) [#/Vol] 7.9 10*3/uL 3.6 - 10.7 10*3/uL [facility] ECG 12-LEADon 02-27-2025 ECG 12-LEAD IMPRESSION: Sinus rhythm Left atrial enlargement RBBB and LPFB Abnrm T, consider ischemia, anterolateral lds Compared to ECG 01/19/2025 06:31:48 Prolonged QT interval no longer present Electronically Signed On 02-27-2025 16:08:17 EDT by Ochoa Guido Normal [facility] Laboratory - Coagulationon 0 02-27-2025 PT Coag (Bld) [Time] 13.7 s High 9.0 - 12.0 s [facility] - Microbiology an d Antimicrobial susceptibilityon 02-27-2025 Bacteria identified Cx Nom (Bld) No growth at 5 days [facility] Bacteria identified Cx Nom (Bld) No growth at 5 days [facility] No Panel InformationOrdered By: Ochoa Guido on 02-27-2025 P [place] 76 degrees [facility] [employer] Work Phone: MS Interval 150 ms [facility] Work Phone: QRS [place] 92 degrees [facility] Work Phone: QRSD Interval 124 ms [facility] Work Phone: QT Interval 417 ms [facility] Work Phone: QTC Interval 482 ms [facility] Work Phone: T Wave [place] 95 degrees [facility] Work Phone: [facility] Work Phone: No Panel Informationon 02-27 CV EPIPHANY [facility] Interpretation and review of laboratory results Abnormal [facility] Nursing Noteon 02-27-2025 Nursing Note Normal [facility] Nursing Note Normal [facility] PROTHROMBIN TIMEon INR Coag (PPP) [Relative time] 1.3 {INR} High 0.9-1.[address] [facility] Comment on above: Result Comment: Vaughn [...] Myocardial Infarction Performed By: #### L AB325, [id number] ####Circuit Court Magistrate: DOMENICA JARA ([id number])[facility] ([address] PT Coag (PPP) [Time] 13.7 s High 9.0-12.0 [facility] Comment on above: Performed By: #### L AB325, [id number] ####Circuit Court Magistrate: DOMENICA JARA ([id number])[address] PT Coag (Bld) [Time]on 02-27 INR Coag (PPP) [Relative time] 1.3 {INR} High 0.9 - 1.1 [facility] Progress Noteon 02-27-2025 Progress [facility] Normal [facility] Progress Note Normal [facility] Progress [facility] Normal [facility] Progress Note Normal [facility] Progress Note Normal [facility] Progress Note Normal [facility] Vital signsOrdered By: Ochoa Guido on 02-27-2025 Heart rate 80 /min bpm [facility] Work Phone: aPTT Coag (Bld) [Time]on aPTT Coag (PPP) [Time] 55.6 s High 20.0 - 30.5 s [facility] 30on 02-26-2025 30 Normal [facility] [id number] 02-26-2025 [id number] Normal [facility] [id number] 02-26-2025 [id number] Getting updated therapy notes. Want to skill him at [facility]. Started on IV antibiotics for aspiration pneumonia. Continues on a heparin gtt. . [facility] [id number] Updated notes sent to [facility] via [facility] per [facility] request. Await review and response regarding ability to accept. TCC notified. [facility] 36on 02-26-2025 36 [facility] CBC W/Diff, Automatedon Absolute Neut Normal 2.0-7.7 [facility] Comment on above: Order Comment: 412.2 Result Comment: KIMBER ENT DISCHARGED Performed By: #### L 500.4050, L300.3900, L100.0100 #### [facility] [address] [place], [address] HCT Normal 40-54 [facility] Comment on above: Order Comment: 412.2 Result Comment: KIMBER ENT DISCHARGED Performed By: #### L 500.4050, L300.3900, L100.0100 #### [facility] [address] [place], [address] HGB Normal 13.0-16.5 [facility] Comment on above: Order Comment: 412.2 Result Comment: KIMBER ENT DISCHARGED Performed By: #### L 500.4050, L300.3900, L100.0100 #### [facility] [address] [place], [address] MCH Normal 27.0-32.0 [facility] Comment on above: Order Comment: 412.2 Result Comment: KIMBER ENT DISCHARGED Performed By: #### L 500.4050, L300.3900, L100.0100 #### [facility] [address] [place], [address] MCHC Normal 32-36 [facility] Comment on above: Order Comment: 412.2 Result Comment: KIMBER ENT DISCHARGED Performed By: #### L 500.4050, L300.3900, L100.0100 #### [facility] [address] [place], [address] MCV Normal 80-94 [facility] Comment on above: Order Comment: 412.2 Result Comment: KIMBER ENT DISCHARGED Performed By: #### L 500.4050, L300.3900, L100.0100 #### [facility] [address] [place], [address] NEUT% Normal 47-70 [facility] Comment on above: Order Comment: 412.2 Result Comment: KIMBER ENT DISCHARGED Performed By: #### L 500.4050, L300.3900, L100.0100 #### [facility] [address] [place], [address] PLT Normal 150-450 [facility] Comment on above: Order Comment: 412.2 Result Comment: KIMBER ENT DISCHARGED Performed By: #### L 500.4050, L300.3900, L100.0100 #### [facility] [address] [place], [address] RBC Normal 4.6-6.2 [facility] Comment on above: Order Comment: 412.2 Result Comment: KIMBER ENT DISCHARGED Performed By: #### L 500.4050, L300.3900, L100.0100 #### [facility] [address] [place], [address] RDW CV Normal 11.6-14.6 [facility] Comment on above: Order Comment: 412.2 Result Comment: KIMBER ENT DISCHARGED Performed By: #### L 500.4050, L300.3900, L100.0100 #### [facility] [address] [place], [address] RDW SD Normal 35.1-43.9 [facility] Comment on above: Order Comment: 412.2 Result Comment: KIMBER ENT DISCHARGED Performed By: #### L 500.4050, L300.3900, L100.0100 #### [facility] [address] [place], [address] WBC Normal 4.4-11.0 [facility] Comment on above: Order Comment: 412.2 Result Comment: KIMBER ENT DISCHARGED Performed By: #### L 500.4050, L300.3900, L100.0100 #### [facility] [address] [place], [address] Comprehensive Metabolic Prof ilon 02-26-2025 ALB Normal 3.5-5.0 [facility] Comment on above: Order Comment: 412.2 Result Comment: KIMBER ENT DISCHARGED Performed By: #### L 500.4050, L300.3900, L100.0100 #### [facility] [address] [place], [address] ALK PHOS Normal 40-129 [facility] Comment on above: Order Comment: 412.2 Result Comment: KIMBER ENT DISCHARGED Performed By: #### L 500.4050, L300.3900, L100.0100 #### [facility] [address] [place], [address] ALT Normal <=46 [facility] Comment on above: Order Comment: 412.2 Result Comment: KIMBER ENT DISCHARGED Performed By: #### L 500.4050, L300.3900, L100.0100 #### [facility] [address] [place], [address] AST Normal <=37 [facility] Comment on above: Order Comment: 412.2 Result Comment: KIMBER ENT DISCHARGED Performed By: #### L 500.4050, L300.3900, L100.0100 #### [facility] [address] [place], [address] BUN Normal 4-19 [facility] Comment on above: Order Comment: 412.2 Result Comment: KIMBER ENT DISCHARGED Performed By: #### L 500.4050, L300.3900, L100.0100 #### [facility] [address] [place], [address] BUN/CRE Normal 10-20 [facility] Comment on above: Order Comment: 412.2 Result Comment: KIMBER ENT DISCHARGED Performed By: #### L 500.4050, L300.3900, L100.0100 #### [facility] [address] [place], [address] Calcium Normal 7.6-11.0 [facility] Comment on above: Order Comment: 412.2 Result Comment: KIMBER ENT DISCHARGED Performed By: #### L 500.4050, L300.3900, L100.0100 #### [facility] [address] [place], [address] CL Normal 98-108 [facility] Comment on above: Order Comment: 412.2 Result Comment: KIMBER ENT DISCHARGED Performed By: #### L 500.4050, L300.3900, L100.0100 #### [facility] [address] [place], [address] CO2 Normal 21.0-32.0 [facility] Comment on above: Order Comment: 412.2 Result Comment: KIMBER ENT DISCHARGED Performed By: #### L 500.4050, L300.3900, L100.0100 #### [facility] [address] [place], [address] CREAT,SERUM Normal 0.70-1.20 [facility] Comment on above: Order Comment: 412.2 Result Comment: KIMBER ENT DISCHARGED Performed By: #### L 500.4050, L300.3900, L100.0100 #### [facility] [address] [place], [address] eGFR Normal >60 [facility] Comment on above: Order Comment: 412.2 Result Comment: KIMBER ENT DISCHARGED Performed By: #### L 500.4050, L300.3900, L100.0100 #### [facility] [address] [place], [address] GAP Normal 5-15 [facility] Comment on above: Order Comment: 412.2 Result Comment: KIMBER ENT DISCHARGED Performed By: #### L 500.4050, L300.3900, L100.0100 #### [facility] [address] [place], [address] GLU Normal 70-99 [facility] Comment on above: Order Comment: 412.2 Result Comment: KIMBER ENT DISCHARGED Performed By: #### L 500.4050, L300.3900, L100.0100 #### [facility] [address] [place], [address] Potassium Normal 3.3-5.1 [facility] Comment on above: Order Comment: 412.2 Result Comment: KIMBER ENT DISCHARGED Performed By: #### L 500.4050, L300.3900, L100.0100 #### [facility] [address] [place], [address] T BILI Normal 0.00-1.30 [facility] Comment on above: Order Comment: 412.2 Result Comment: KIMBER ENT DISCHARGED Performed By: #### L 500.4050, L300.3900, L100.0100 #### [facility] [address] [place], [address] T PROT Normal 5.9-8.4 [facility] Comment on above: Order Comment: 412.2 Result Comment: KIMBER ENT DISCHARGED Performed By: #### L 500.4050, L300.3900, L100.0100 #### [facility] [address] [place], [address] Comprehensive Metabolic Profil Normal 133-145 [facility] Comment on above: Order Comment: 412.2 Result Comment: KIMBER ENT DISCHARGED Performed By: #### L 500.4050, L300.3900, L100.0100 #### [facility] [address] [place], [address] HIGH SENSITIVITY TROPONIN, S MITCHELL, SECOND TESTon 02-26-2025 2H TROPONIN HS (SERIAL 2ND TROPONIN) 80 ng/L High <=35 [facility] Comment on above: Result Comment: 2h t roponin (2nd troponin) samples collected between 1h 40 min and 2h and 20 min of the baseline collection time can be utilized to interpret delta troponins as per [facility] algorithms. Samples collected outside this timeframe need to be interpreted clinically.Rising or falling troponin delta between 2 ??? 15 ng/L as compared to baseline value requires a 3rd serial troponin Performed By: #### L [id number] ####Circuit Court Magistrate: DOMENICA JARA ([id number])[facility] ([facility])[address] [place] [address] HIGH SENSITIVITY TROPONIN, S ERIAL, THIRD TESTon 02-26-2025 4H TROPONIN HS (SERIAL 3RD TROPONIN) 75 ng/L High <=35 [facility] Comment on above: Result Comment: 4h t roponin (3rd troponin) samples collected between 1h 40 min and 2h and 20 min of the 2h troponin collection time can be utilized to interpret delta troponins as per [facility] algorithms. Samples collected outside this timeframe need to be interpreted clinically.Rising or falling troponin delta between 2 ??? 15 ng/L as compared to 2h troponin valuerequires further evaluation. Performed By: #### L [id number] ####Circuit Court Magistrate: DOMENICA JARA ([id number])[facility] ([facility])[address] [place] [address] Laboratory - Coagulationon 0 02-26-2025 PT Coag (Bld) [Time] 13.5 s High 9.0 - 12.0 s [facility] No Panel Informationon 02-26 4h Troponin HS (Serial 3rd Troponin) 75 ng/L High [facility] - [facility] ng/L [facility] Interpretation and review of laboratory results Abnormal [facility] 2h Troponin HS (Serial 2nd Troponin) 80 ng/L High [facility] - 35 ng/L [facility] Interpretation and review of laboratory results Abnormal [facility] Interpretation and review of laboratory results Abnormal [facility] Troponin HS Serial Baseline 84 ng/L High NINF - 35 ng/L [facility] Interpretation and review of laboratory results Abnormal [facility] PT Coag (Bld) [Time]on 02-26 INR Coag (PPP) [Relative time] 1.3 {INR} High 0.9 - 1.1 [facility] Progress Noteon 02-26-2025 Progress Note Normal [facility] Progress Note Normal [facility] Progress Note Normal [facility] Note Normal [facility] Progress [facility] Normal [facility] Progress Note Normal [facility] Prothrombin Time w/INRon INR Normal [facility] Comment on above: Order Comment: 412.2 Result Comment: KIMBER ENT DISCHARGED Performed By: #### L 500.4050, L300.3900, L100.0100 #### [facility] [address] [place], [address] PROTIME Normal 11.7-14.9 [facility] Comment on above: Order Comment: 412.2 Result Comment: KIMBER ENT DISCHARGED Performed By: #### L 500.4050, L300.3900, L100.0100 #### [facility] [address] [place], [address] aPTT Coag (Bld) [Time]on aPTT Coag (PPP) [Time] 48.2 s High 20.0 - 30.5 s [facility] 30on 02-25-2025 30 Normal [facility] 30 Normal [facility] APTTon 02-25-2025 aPTT Coag (Bld) [Time] 48.2 s High 20.0-30.5 [facility] Comment on above: Result Comment: ARPAN R COMMENTS:NOTE: The therapeutic time for Heparin anticoagulation, based on Xa activity inhibition, is an APTT of 46-80 seconds. Performed By: #### L [id number], [id number] ####Circuit Court Magistrate: DOMENICA JARA ([id number])[address] aPTT Coag (Bld) [Time] 49.5 s High 20.0-30.5 [facility] Comment on above: Result Comment: ARPAN R COMMENTS:NOTE: The therapeutic time for Heparin anticoagulation, based on Xa activity inhibition, is an APTT of 46-80 seconds. Performed By: #### L [id number], [id number] ####Circuit Court Magistrate: DOMENICA JARA ([id number])[facility] ([facility])[address] [place] [address] CBC (HEMOGRAM)on 02-25-2025 Erythrocyte distribution width (RBC) [Ratio] 19.9 % High 11.5-15.0 [facility] Comment on above: Performed By: #### L [id number] ####Circuit Court Magistrate: DOMENICA JARA ([id number])[address] Hematocrit (Bld) [Volume fraction] 24.1 % Low 40.0-52.0 [facility] Comment on above: Performed By: #### L [id number] ####Circuit Court Magistrate: DOMENICA JARA ([id number])[facility])[address] [place] [address] Hemoglobin (Bld) [Mass/Vol] 7.6 g/dL Low 13.0-18.0 [facility] Comment on above: Performed By: #### L [id number] ####Circuit Court Magistrate: DOMENICA JARA ([id number])[address] MCH (RBC) [Entitic mass] 29.3 pg Normal 26.0-34.0 [facility] Comment on above: Performed By: #### L [id number] ####Circuit Court Magistrate: DOMENICA JARA ([id number])[facility])[address] [place] [address] MCHC 31.5 % Normal 30.5-36.0 [facility] Comment on above: Performed By: #### L [id number] ####Circuit Court Magistrate: DOMENICA JARA ([id number])[address] MCV (RBC) [Entitic vol] 93.1 fL Normal 77.0-99.0 S [facility] Comment on above: Performed By: #### L [id number] ####Circuit Court Magistrate: DOMENICA JARA ([id number])[facility])[address] [place] [address] Platelet mean volume (Bld) [Entitic vol] 8.9 fL Low 9.0-12.7 [facility] Comment on above: Performed By: #### L [id number] ####Circuit Court Magistrate: DOMENICA JARA ([id number])[facility])[address] [place] [address] Platelets (Bld) [#/Vol] 280 10*3/uL Normal 140-440 [facility] Comment on above: Performed By: #### L [id number] ####Circuit Court Magistrate: DOMENICA JARA ([phone])[facility])[address] [place] [address] RBC (Bld) [#/Vol] 2.59 10*6/uL Low 4.40-5.90 [facility] Comment on above: Performed By: #### L [id number] ####Circuit Court Magistrate: DOMENICA JARA ([id number])[facility])[address] [place] [address] WBC (Bld) [#/Vol] 7.5 10*3/uL Normal 3.6-10.7 [facility] Comment on above: Performed By: #### L [id number] ####Circuit Court Magistrate: DOMENICA JARA ([id number])[facility])[address] [place] [address] CBC panel Auto (Bld)on 02-25 Erythrocyte distribution width (RBC) [Ratio] 19.9 % High 11.5 - 15.0 % [facility] Hematocrit (Bld) [Volume fraction] 24.1 % Low 40.0 - 52.0 % [facility] Hemoglobin (Bld) [Mass/Vol] 7.6 g/dL Low 13.0 - 18.0 g/dL [facility] Interpretation and review of laboratory results Abnormal [facility] MCH (RBC) [Entitic mass] 29.3 pg 26. 0 - 34.0 pg [facility] MCHC (RBC) [Mass/Vol] 31.5 % 30.5 - 36.0 % [facility] MCV (RBC) [Entitic vol] 93.1 fL 77.0 - 99.0 fL [facility] Platelet mean volume (Bld) [Entitic vol] 8.9 fL Low 9.0 - 12.7 fL [facility] Platelets (Bld) [#/Vol] 280 10*3/uL 140 - 440 10*3/uL [facility] RBC (Bld) [#/Vol] 2.59 10*6/uL Low 4.40 - 5.9 0 10*6/uL [facility] WBC (Bld) [#/Vol] 7.5 10*3/uL 3.6 - 10.7 10*3/uL [facility] HIGH SENSITIVITY TROPONIN, S ERIAL BASELINEon 02-25-2025 TROPONIN HS SERIAL BASELINE 84 ng/L High <=35 [facility] Comment on above: Result Comment: In i ndividuals presenting with symptoms > 2h, a baseline troponin <= 5 ng/L suggests acutecardiac injury is unlikely and further serial testing is generally not indicated. Performed By: #### L [id number] ####Circuit Court Magistrate: DOMENICA JARA ([id number])[facility] ([facility])[address] [place] [address] Laboratory - Coagulationon 0 02-25-2025 PT Coag (Bld) [Time] 13.7 s High 9.0 - 12.0 s [facility] No Panel Informationon 02-25 Interpretation and review of laboratory results Abnormal [facility] Nursing Noteon 02-25-2025 Nursing Note 2322- Notified Dr. Hathaway of patient complaint of SOB and worsening chest pain that he described as dull and tight. Vitals WDL. STAT EKG ordered, patient given Nitrostat, and troponin sent down. 2330- Notified DIRECTOR OF REHABILITATION AND WELLNESS to assess the patient. Normal [facility] PROTHROMBIN TIMEon INR Coag (PPP) [Relative time] 1.3 {INR} High 0.9-1.1 [facility] Comment on above: Result Comment: Vaughn [...] Myocardial Infarction Performed By: #### L [id number], [id number] ####Circuit Court Magistrate: DOMENICA JARA ([id number])[facility])[address] [place] [address] PT Coag (PPP) [Time] 13.5 s High 9.0-12.0 [facility] Comment on above: Performed By: #### L [id number], [id number] ####Circuit Court Magistrate: DOMENICA JARA ([id number])[facility])[address] [place] [address] INR Coag (PPP) [Relative time] 1.3 {INR} High 0.9-1.1 [facility] Comment on above: Result Comment: Vaughn [...] Myocardial Infarction Performed By: #### Tameka AB320, [id number] ####Circuit Court Magistrate: DOMENICA JARA ([id number])[facility])[address] [place] [address] [place] PT Coag (PPP) [Time] 13.7 s High 9.0-12.0 [facility] Comment on above: Performed By: #### L [id number], [id number] ####Circuit Court Magistrate: DOMENICA JARA ([id number])[facility])[address] [place] [address] PT Coag (Bld) [Time]on 02-25 INR Coag (PPP) [Relative time] 1.3 {INR} High 0.9 - 1.1 [facility] Progress Noteon 02-25-2025 Progress Note Normal [facility] Progress Note Normal [facility] Progress Note Normal [facility] Progress Note Normal [facility] aPTT Coag (Bld) [Time]on aPTT Coag (PPP) [Time] 49.5 s High 20.0 - 30.5 s [facility] 30on 02-24-2025 30 Normal [facility] 30 Normal [facility] APTTon 02-24-2025 aPTT Coag (Bld) [Time] 54.7 s High 20.0-30.[address] [facility] Comment on above: Result Comment: ARPAN Kaplan COMMENTS:NOTE: The therapeutic time for Heparin anticoagulation, based on Xa activity inhibition, is an APTT of 46-80 seconds. Performed By: #### L [id number] ####Circuit Court Magistrate: DOMENICA JARA ([id number])[facility])[address] [place] [address] aPTT Coag (Bld) [Time] 61.0 s High 20.0-30.5 [facility] Comment on above: Result Comment: ARPAN Kaplan COMMENTS:NOTE: The therapeutic time for Heparin anticoagulation, based on Xa activity inhibition, is an APTT of 46-80 seconds. Performed By: #### L [id number], [id number] ####Circuit Court Magistrate: DOMENICA JARA ([id number])[address] Bacteria identified Aer cx N om (Lower resp)Ordered By: Corey Pabon on 02-24-2025 Gram Stain Result Many Polymorphonuclear leukocytes per low power field Abnormal [facility] Gram Stain Result Few Epithelial cells per low power field Abnormal [facility] Gram Stain Result Positive Abnormal [facility] Gram Stain Result Negative Abnormal [facility] Gram Stain Result Few Yeast Abnormal [facility] Interpretation and review of laboratory results Abnormal [facility] HBV surface Ab IA Qnon 02-24 [facility] HBV surface Ag IA Qlon 02-24 Interpretation and review of laboratory results Normal [facility] HEPATITIS B SURFACE ANTIBODY on 02-24-2025 HEPATITIS B VIRUS SURFACE AB <8.0 Normal [facility] Comment on above: Result Comment: ARPAN Kaplan COMMENTS:Interpretation:<8.0 Non-Reactive8.0-11.9 Equivocal>= 12.0 Ab DetectedNote: If an equivocal result is interpreted, an antibody status is unable to be determined. Collect new specimen if clinically indicated. Performed By: #### L [id number], [id number] ####Circuit Court Magistrate: DOMENICA JARA ([id number])[facility] ([facility])[address] [place] [address] HEPATITIS B SURFACE ANTIGENo n 02-24-2025 HEPATITIS B VIRUS SURFACE AG Not detected Normal Not Detected [facility] Comment on above: Performed By: #### L [id number], [id number] ####Circuit Court Magistrate: DOMENICA JARA ([id number])[facility])[address] [place] [address] Laboratory - Coagulationon 0 02-24-2025 PT Coag (Bld) [Time] 13.5 s High 9.0 - 12.0 s [facility] Laboratory - Drug toxicology on 02-24-2025 Vancomycin trough [Mass/Vol] 23.4 ug/mL [facility] - Microbiology an d Antimicrobial susceptibilityon 02-24-2025 HBV surface Ab IA Qn mIU/mL [facility] HBV surface Ag IA Ql Not detected Not Detected [facility] - Microbiology an d Antimicrobial susceptibilityOrdered By: Corey Pabon on 02-24-2025 Bacteria identified Aer cx Nom (Lower resp) Few respiratory ila present. [facility] Bacteria identified Aer cx Nom (Lower resp) Moderate Klebsiella oxytoca Abnormal [facility] No Panel Informationon 02-24 [facility] Interpretation and review of laboratory results Abnormal [facility] Nursing Noteon 02-24-2025 Nursing Note Normal [facility] PROTHROMBIN TIMEon INR Coag (PPP) [Relative time] 1.3 {INR} High 0.9-1.1 [facility] Comment on above: Result Comment: Vaughn [...] Myocardial Infarction Performed By: #### L [id number], [id number] ####Circuit Court Magistrate: DOMENICA JARA ([id number])[facility])[address] [place] [address] PT Coag (PPP) [Time] 13.5 s High 9.0-12.0 [facility] Comment on above: Performed By: #### L [id number], [id number] ####Circuit Court Magistrate: DOMENICA JARA ([id number])[facility])[address] [place] [address] PT Coag (Bld) [Time]on 02-24 INR Coag (PPP) [Relative time] 1.3 {INR} High 0.9 - 1.1 [facility] Progress Noteon 02-24-2025 Progress Note Vancomycin therapy has been discontinued by Hussain Quintana on 02/24. Thank you for the consult. Pharmacy signing off for vancomycin dosing. Marissa Iglesias, PharmD, Date: 02/24/25 Time: 4:08 PM Normal [facility] Progress Note Normal [facility] Progress Note Normal [facility] Progress Note Normal [facility] Progress Note [facility] VANCOMYCIN, AUC TIMED DOSING on 02-24-2025 VANCOMYCIN, AUC 23.4 ug/mL Normal [facility] Comment on above: Result Comment: ARPAN Kaplan COMMENTS:Please draw random level at least >4 hours after the end of hemodialysis.Toxicity is seen at concentrations >80-100 ug/mLTherapeutic (Peak) range: 20-40Therapeutic (Trough) range: 5-10 Performed By: #### L AB39 ####Circuit Court Magistrate: DOMENICA JARA ([id number])[facility])[address] [place] [address] Vancomycin trough [Mass/Vol] on 02-24-2025 [facility] aPTT Coag (Bld) [Time]on aPTT Coag (PPP) [Time] 54.7 s High 20.0 - 30.5 s [facility] Interpretation and review of laboratory results Abnormal [facility] aPTT Coag (PPP) [Time] 61 s High 20.0 - 30.5 s [facility] [id number] 02-23-2025 [id number] Normal [facility] 36on 02-23-2025 36 Called LM to call back and schedule CT and hospital follow up with any ARMIN Normal [facility] 36 Hello, can we please schedule a 6-week CT scan for this patient and a follow-up appointment after this? Thank you Normal [facility] APTTon 02-23-2025 aPTT Coag (Bld) [Time] 49.3 s High 20.0-30.[address] [facility] Comment on above: Result Comment: ARPAN Kaplan COMMENTS:NOTE: The therapeutic time for Heparin anticoagulation, based on Xa activity inhibition, is an APTT of 46-80 seconds. Performed By: #### L [id number], [id number] ####Circuit Court Magistrate: DOMENICA JARA ([id number])[facility])[address] [place] [address] CBC (HEMOGRAM)on 02-23-2025 Erythrocyte distribution width (RBC) [Ratio] 19.7 % High 11.5-15.0 [facility] Comment on above: Performed By: #### L [id number] ####Circuit Court Magistrate: DOMENICA JARA ([id number])[facility])[address] [place] [address] Hematocrit (Bld) [Volume fraction] 27.9 % Low 40.0-52.0 [facility] Comment on above: Performed By: #### L [id number] ####Circuit Court Magistrate: DOMENICA JARA ([id number])[facility])[address] [place] [address] Hemoglobin (Bld) [Mass/Vol] 8.6 g/dL Low 13.0-18.0 [facility] Comment on above: Performed By: #### L [id number] ####Circuit Court Magistrate: DOMENICA [id number])[facility])[address] [place] [address] MCH (RBC) [Entitic mass] 28.7 pg Normal 26.0-34.0 [facility] Comment on above: Performed By: #### L [id number] ####Circuit Court Magistrate: DOMENICA JARA ([id number])[facility])[address] [place] [address] MCHC 30.8 % Normal 30.5-36.0 [facility] Comment on above: Performed By: #### L [id number] ####Circuit Court Magistrate: DOMENICA JARA ([phone])[facility])[address] [place] [address] MCV (RBC) [Entitic vol] 93.0 fL Normal 77.0-99.0 [facility] Comment on above: Performed By: #### L [id number] ####Circuit Court Magistrate: DOMENICA JARA ([id number])[facility])[address] [place] [address] Platelet mean volume (Bld) [Entitic vol] 8.9 fL Low 9.0-12.7 [facility] Comment on above: Performed By: #### L [id number] ####Circuit Court Magistrate: DOMENICA JARA ([id number])[facility])[address] [place] [address] Platelets (Bld) [#/Vol] 316 10*3/uL Normal 140-440 [facility] Comment on above: Performed By: #### L [id number] ####Circuit Court Magistrate: DOMENICA JARA ([id number])[facility])[address] [place] [address] RBC (Bld) [#/Vol] 3.00 10*6/uL Low 4.40-5.90 [facility] Comment on above: Performed By: #### L [id number] ####Circuit Court Magistrate: DOMENICA JARA ([id number])[facility])[address] [place] [address] WBC (Bld) [#/Vol] 8.6 10*3/uL Normal 3.6-10.7 [facility] Comment on above: Performed By: #### L [id number] ####Circuit Court Magistrate: DOMENICA JRAA ([id number])[facility])[address] [place] [address] CBC panel Auto (Bld)on 02-23 Erythrocyte distribution width (RBC) [Ratio] 19.7 % High 11.5 - 15.0 % [facility] Hematocrit (Bld) [Volume fraction] 27.9 % Low 40.0 - 52.0 % [facility] Hemoglobin (Bld) [Mass/Vol] 8.6 g/dL Low 13.0 - 18.0 g/dL [facility] Interpretation and review of laboratory results Abnormal [facility] MCH (RBC) [Entitic mass] 28.7 pg 26. 0 - 34.0 pg [facility] MCHC (RBC) [Mass/Vol] 30.8 % 30.5 - 36.0 % [facility] MCV (RBC) [Entitic vol] 93 fL 77.0 - 99.0 fL [facility] Platelet mean volume (Bld) [Entitic vol] 8.9 fL Low 9.0 - 12.7 fL [facility] Platelets (Bld) [#/Vol] 316 10*3/uL 140 - 440 10*3/uL [facility] RBC (Bld) [#/Vol] 3 10*6/uL Low 4.40 - 5.9 0 10*6/uL [facility] WBC (Bld) [#/Vol] 8.6 10*3/uL 3.6 - 10.7 10*3/uL [facility] COMPREHENSIVE METABOLIC PANE Victor M 02-23-2025 Albumin [Mass/Vol] 1.9 g/dL Low 3.5-5.0 [facility] Comment on above: Performed By: #### L AB113, LAB17, [id number] ####Circuit Court Magistrate: DOMENICA JARA ([id number])[facility])[address] [place] [address] ALP [Catalytic activity/Vol] 136 U/L Normal 40-150 [facility] Comment on above: Performed By: #### L AB113, LAB17, [id number] ####Circuit Court Magistrate: DOMENICA JARA ([id number])[facility])[address] [place] [address] ALT [Catalytic activity/Vol] 10 U/L Normal <40 [facility] Comment on above: Performed By: #### L AB113, LAB17, [id number] ####Circuit Court Magistrate: DOMENICA JARA ([id number])[facility])[address] [place] [address] Anion gap [Moles/Vol] 11 mmol/L Normal 3-13 [facility] Comment on above: Performed By: #### Tameka ABAruna, LAB17, [id number] ####Circuit Court Magistrate: DOMENICA JARA ([id number])[facility])[address] [place] [address] AST [Catalytic activity/Vol] 37 U/L High <34 [facility] Comment on above: Performed By: #### Tameka ABAruna, LAB17, [id number] ####Circuit Court Magistrate: DOMENICA JARA ([id number])[facility])[address] [place] [address] Bilirubin [Mass/Vol] 0.6 mg/dL Normal <1.2 [facility] Comment on above: Performed By: #### L AB113, LAB17, [id number] ####Circuit Court Magistrate: DOMENICA JARA ([id number])[facility])[address] [place] [address] Calcium [Mass/Vol] 9.2 mg/dL Normal 8.4-10.2 [facility] Comment on above: Performed By: #### L AB113, LAB17, [id number] ####Circuit Court Magistrate: DOMENICA JARA ([id number])[facility])[address] [place] [address] [place] Chloride [Moles/Vol] 99 mmol/L Normal 98-107 [facility] Comment on above: Performed By: #### L AB113, LAB17, [id number] ####Circuit Court Magistrate: DOMENICA JARA ([id number])[facility])[address] [place] [address] CO2 [Moles/Vol] 25 mmol/L Normal 22-29 [facility] Comment on above: Performed By: #### L AB113, LAB17, [id number] ####Circuit Court Magistrate: DOMENICA JARA ([id number])[facility])[address] [place] [address] Creatinine [Mass/Vol] 2.78 mg/dL High 0.72-1.25 [facility] Comment on above: Performed By: #### L AB113, LAB17, [id number] ####Circuit Court Magistrate: DOMENICA JARA ([id number])[facility])[address] [place] [address] GLOMERULAR FILTRATION RATE ML/MIN/1.73 SQ M.PREDICTED 25.4 mL/min/1.73m*2 Low >60.0 [facility] Comment on above: Result Comment: Calc ulation based on the Chronic Kidney Disease Epidemiology Collaboration (CKD-EPI) equation refit without adjustment for race Performed By: #### L AB113, LAB17, [id number] ####Circuit Court Magistrate: DOMENICA JARA ([id number])[facility])[address] [place] [address] Glucose [Mass/Vol] 110 mg/dL High 74-100 [facility] Comment on above: Performed By: #### L AB113, LAB17, [id number] ####Circuit Court Magistrate: DOMENICA JARA ([phone])[facility])[address] [place] [address] [place] Potassium [Moles/Vol] 4.1 mmol/L Normal 3.5-5.1 [facility] Comment on above: Result Comment: [facility] potassium values may be up to 0.5 mmol/L lower than serum values. Performed By: #### L AB113, LAB17, [id number] ####Circuit Court Magistrate: DOMENICA JARA ([id number])[facility])[address] [place] [address] Protein [Mass/Vol] 7.1 g/dL Normal 6.4-8.3 [facility] Comment on above: Performed By: #### L AB113, LAB17, [id number] ####Circuit Court Magistrate: DOMENICA JARA ([id number])[facility])[address] [place] [address] Sodium [Moles/Vol] 135 mmol/L Low 136-145 [facility] Comment on above: Performed By: #### L AB113, LAB17, [id number] ####Circuit Court Magistrate: DOMENICA JARA ([id number])[facility])[address] [place] [address] Urea nitrogen [Mass/Vol] 21 mg/dL Normal 9-23 [facility] Comment on above: Performed By: #### Tameka AB113, LAB17, [id number] ####Circuit Court Magistrate: DOMENICA JARA ([id number])[facility])[address] [place] [address] Comprehensive metabolic 1998 panelOrdered By: Jarred José on 02-23-2025 Albumin [Mass/Vol] 1.9 g/dL Low 3.5 - 5.0 g/dL [facility] ALP [Catalytic activity/Vol] 136 U/L 40 - 150 U/L [facility] ALT [Catalytic activity/Vol] 10 U/L [facility] - 40 U/L [facility] Anion gap [Moles/Vol] 11 mmol/L 3 - 13 mmol/L [facility] AST [Catalytic activity/Vol] 37 U/L High NINF - 34 U/L [facility] Bilirubin [Mass/Vol] 0.6 mg/dL NINF - 1.2 mg/dL [facility] Calcium [Mass/Vol] 9.2 mg/dL 8.4 - 10. 2 mg/dL [facility] Chloride [Moles/Vol] 99 mmol/L 98 - 10 7 mmol/L [facility] CO2 [Moles/Vol] 25 mmol/L 22 - 29 mmol/L [facility] Creatinine [Mass/Vol] 2.78 mg/dL High 0.72 - 1.25 mg/dL [facility] GFR/1.73 sq M.predicted (S/P/Bld) [Vol rate/Area] 25.4 mL/min Low - PINF [facility] Glucose [Mass/Vol] 110 mg/dL High 74 - 100 mg/dL [facility] Interpretation and review of laboratory results Abnormal [facility] Potassium [Moles/Vol] 4.1 mmol/L 3.5 - 5.1 mmol/L [facility] Protein [Mass/Vol] 7.1 g/dL 6.4 - 8.3 g/dL [facility] Sodium [Moles/Vol] 135 mmol/L Low 136 - 145 mmol/L [facility] Urea nitrogen [Mass/Vol] 21 mg/dL 9 - 23 mg/d L [facility] Consulton 02-23-2025 Consult Normal [facility] Laboratory - Chemistry and C hemistry - challengeon 02-23-2025 Magnesium [Mass/Vol] 2 mg/dL 1.6 - 2 .6 mg/dL [facility] Laboratory - Coagulationon 0 02-23-2025 PT Coag (Bld) [Time] 14 s High 9.0 - 12.0 s [facility] MAGNESIUMon 02-23-2025 Magnesium [Mass/Vol] 2.0 mg/dL Normal 1.6-2.6 [facility] Comment on above: Result Comment: ARPAN Kaplan COMMENTS:Higher values can be expected in females during menses. Performed By: #### L AB113, LAB17, [id number] ####Circuit Court Magistrate: DOMENICA JARA ([id number])[facility] ([facility])[address] [place] [address] Magnesium [Mass/Vol]on 02-23 [facility] No Panel Informationon 02-23 Interpretation and review of laboratory results Normal [facility] Interpretation and review of laboratory results Abnormal [facility] Nursing Noteon 02-23-2025 Nursing Note Normal [facility] Nursing Note Normal [facility] PHOSPHORUSon 02-23-2025 Phosphate [Mass/Vol] 2.6 mg/dL Normal 2.3-4.7 [facility] Comment on above: Performed By: #### L AB113, LAB17, [id number] ####Circuit Court Magistrate: DOMENICA JARA ([id number])[facility] ([facility])[address] [place] [address] PROTHROMBIN TIMEon INR Coag (PPP) [Relative time] 1.3 {INR} High 0.9-1.1 [facility] Comment on above: Result Comment: Vaughn [...] Myocardial Infarction Performed By: #### L AB325, [id number] ####Circuit Court Magistrate: DOMENICA JARA ([id number])[facility])[address] [place] [address] PT Coag (PPP) [Time] 14.0 s High 9.0-12.0 [facility] [employer] [facility] Comment on above: Performed By: #### Tameka AB325, [id number] ####Circuit Court Magistrate: DOMENICA JARA ([id number])[facility] ([facility])[address] [place] [address] PT Coag (Bld) [Time]on 02-23 INR Coag (PPP) [Relative time] 1.3 {INR} High 0.9 - 1.1 [facility] [employer] Phosphate [Moles/Vol]on 01-27 Phosphate [Mass/Vol] 2.6 mg/dL 2.3 - 4 .7 mg/dL [facility] Progress Noteon 02-23-2025 Progress Note Normal [facility] Progress Note Normal [facility] Progress [facility] Normal [facility] Progress Note Normal [facility] Progress Note Normal [facility] Progress Note Normal [facility] US Heart TransthoracicOrdere d By: Daryn Chowdary on 02-23-2025 Aortic valve Mean systole pressure gradient by US.doppler derived full Bernoulli 10 mmHg [facility] Work Phone: Aortic valve Orifice area by US 3.1 cm2 [facility] Work Phone: Aortic valve Peak systolic flow by US.doppler 1.4 m/s [facility] Work Phone: Ascending Aorta 3.5 cm [facility] Work Phone: Ascending Aorta Index 1.99 cm/m2 [facility] Work Phone: AV Area by Peak Velocity 1.3 cm2 [facility] Work Phone: AV Area by VTI 1.5 cm2 [facility] Work Phone: AV AT 66.6 ms [facility] Work Phone: AV Peak Gradient 20 mmHg [facility] Work Phone: AV Peak Velocity 2.3 m/s [facility] Work Phone: AV Velocity Ratio 0.39 [facility] Work Phone: AV VTI 39.1 cm [facility] Work Phone: MALU/BSA Peak Velocity 0.7 cm2/m2 [facility] Work Phone: MALU/BSA VTI 0.9 cm2/m2 [facility] Work Phone: E/E' Lateral 21.43 [facility] Work Phone: E/E' Ratio (Averaged) 25.71 [facility] Work Phone: E/E' Septal 30 [facility] Work Phone: Est. RA Pressure 15 mmHg [facility] Work Phone: Fractional Shortening 2D 31 % 28 - 44 % [facility] Work Phone: Interpretation and review of laboratory results Abnormal [facility] Work Phone: IVC Diameter 2.5 cm [facility] Work Phone: IVSd 1.6 cm Abnormal 0.6 - 1.0 cm [facility] Work Phone: LA Diameter 3.1 cm [facility] Work Phone: LA Size Index 1.76 cm/m2 [facility] Work Phone: LA Volume 2C 69 mL Abnormal 18 - 58 mL [facility] Work Phone: LA Volume 4C 84 [...] 2D 201 g 88 - 224 g [facility] Work Phone: LV Mass 2D Index 114.2 g/m2 49 - 115 g/m2 [facility] Work Phone: LV RWT Ratio 0.78 [facility] Work Phone: LVIDd 3.6 cm Abnormal 4.2 - 5.9 cm [facility] Work Phone: LVIDd Index 2.05 cm/m2 [facility] Work Phone: LVIDs 2.5 cm [facility] Work Phone: LVIDs Index 1.42 cm/m2 [facility] Work Phone: LVOT Cardiac Output 5.3 liter/minute [facility] Work Phone: LVOT Diameter 2 cm [facility] Work Phone: LVOT Mean Gradient 2 mmHg [facility] Work Phone: LVOT Peak Gradient 3 mmHg [facility] Work Phone: LVOT Peak Velocity 0.9 m/s [facility] Work Phone: LVOT Stroke Volume Index 33.4 mL/m2 [facility] Work Phone: LVOT SV 58.7 ml [facility] Work Phone: LVOT VTI 18.7 cm [facility] Work Phone: LVOT:AV VTI Index 0.48 [facility] Work Phone: LVPWd 1.4 cm Abnormal 0.6 - 1.0 cm [facility] Work Phone: MV A Velocity 0.97 m/s [facility] Work Phone: MV Area by PHT 3 cm2 [facility] Work Phone: MV Area by VTI 1.3 cm2 [facility] Work Phone: MV E Velocity 1.5 m/s [facility] Work Phone: MV E Wave Deceleration Time 250.1 ms [facility] Work Phone: MV E/A 1.55 [facility] Work Phone: MV Max Velocity 2 m/s [facility] Work Phone: MV Mean Gradient 7 mmHg [facility] Work Phone: MV Mean Velocity 1.2 m/s [facility] Work Phone: MV Peak Gradient 16 mmHg [facility] Work Phone: MV PHT 73.9 ms [facility] Work Phone: MV VTI 44.1 cm [...] [facility] Work Phone: US Heart Transthoracicon [facility] aPTT Coag (Bld) [Time]on aPTT Coag (PPP) [Time] 49.3 s High 20.0 - 30.5 s [facility] 30on 02-22-2025 30 Normal [facility] [id number] 02-22-2025 [id number] Normal [facility] [id number] Updated notes sent to [facility] via [facility] per TCC request. Await review and response regarding ability to accept. TCC notified. Normal [facility] APTTon 02-22-2025 aPTT Coag (Bld) [Time] 52.1 s High 20.0-30.5 [facility] Comment on above: Result Comment: ARPAN Kaplan COMMENTS:NOTE: The therapeutic time for Heparin anticoagulation, based on Xa activity inhibition, is an APTT of 46-80 seconds. Performed By: #### L AB325 ####Circuit Court Magistrate: DOMENICA JARA ([id number])[facility])[address] [place] [address] aPTT Coag (Bld) [Time] 54.9 s High 20.0-30.5 [facility] Comment on above: Result Comment: ARPAN Kaplan COMMENTS:NOTE: The therapeutic time for Heparin anticoagulation, based on Xa activity inhibition, is an APTT of 46-80 seconds. Performed By: #### L AB325, [id number] ####Circuit Court Magistrate: DOMENICA JARA ([id number])[facility])[address] [place] [address] BLOOD CULTUREon 02-22-2025 Bacteria identified Cx Nom (Bld) Normal [facility] Comment on above: Performed By: #### L AB462 ####Circuit Court Magistrate: DOMENICA JARA ([id number])[address] Bacteria identified Cx Nom (Bld) Normal [facility] Comment on above: Performed By: #### L AB462 ####Circuit Court Magistrate: DOMENICA JARA ([id number])[address] CBC (HEMOGRAM)on 02-22-2025 Erythrocyte distribution width (RBC) [Ratio] 19.4 % High 11.5-15.0 [facility] Comment on above: Performed By: #### L AB294 ####Circuit Court Magistrate: DOMENICA JARA ([id number])[facility])[address] [place] [address] Hematocrit (Bld) [Volume fraction] 24.5 % Low 40.0-52.0 [facility] Comment on above: Performed By: #### L [id number] ####Circuit Court Magistrate: DOMENICA JARA ([id number])[facility])[address] [place] [address] Hemoglobin (Bld) [Mass/Vol] 7.8 g/dL Low 13.0-18.0 [facility] Comment on above: Performed By: #### L AB294 ####Circuit Court Magistrate: DOMENICA JARA ([id number])[facility])[address] [place] [address] MCH (RBC) [Entitic mass] 29.0 pg Normal 26.0-34.0 [facility] Comment on above: Performed By: #### L AB294 ####Circuit Court Magistrate: DOMENICA JARA ([id number])[facility])[address] [place] [address] MCHC 31.8 % Normal 30.5-36.0 [facility] Comment on above: Performed By: #### L [id number] ####Circuit Court Magistrate: DOMENICA JARA ([id number])[facility])[address] [place] [address] MCV (RBC) [Entitic vol] 91.1 fL Normal 77.0-99.0 [facility] Comment on above: Performed By: #### L [id number] ####Circuit Court Magistrate: DOMENICA JARA ([id number])[facility])[address] [place] [address] Platelet mean volume (Bld) [Entitic vol] 8.9 fL Low 9.0-12.7 [facility] Comment on above: Performed By: #### L [id number] ####Circuit Court Magistrate: DOMENICA JARA ([id number])[facility])[address] [place] [address] Platelets (Bld) [#/Vol] 282 10*3/uL Normal 140-440 [facility] Comment on above: Performed By: #### L [id number] ####Circuit Court Magistrate: DOMENICA JARA ([id number])[address] RBC (Bld) [#/Vol] 2.69 10*6/uL Low 4.40-5.90 [facility] Comment on above: Performed By: #### L [id number] ####Circuit Court Magistrate: DOMENICA JARA ([id number])[facility])[address] [place] [address] WBC (Bld) [#/Vol] 9.0 10*3/uL Normal 3.6-10.7 [facility] Comment on above: Performed By: #### L [id number] ####Circuit Court Magistrate: DOMENICA JARA ([id number])[address] CBC panel Auto (Bld)on 02-22 Erythrocyte distribution width (RBC) [Ratio] 19.4 % High 11.5 - 15.0 % [facility] Hematocrit (Bld) [Volume fraction] 24.5 % Low 40.0 - 52.0 % [facility] Hemoglobin (Bld) [Mass/Vol] 7.8 g/dL Low 13.0 - 18.0 g/dL [facility] Interpretation and review of laboratory results Abnormal [facility] MCH (RBC) [Entitic mass] 29 pg 26. 0 - 34.0 pg [facility] MCHC (RBC) [Mass/Vol] 31.8 % 30.5 - 36.0 % [facility] MCV (RBC) [Entitic vol] 91.1 fL 77.0 - 99.0 fL [facility] Platelet mean volume (Bld) [Entitic vol] 8.9 fL Low 9.0 - 12.7 fL [facility] Platelets (Bld) [#/Vol] 282 10*3/uL 140 - 440 10*3/uL [facility] RBC (Bld) [#/Vol] 2.69 10*6/uL Low 4.40 - 5.9 0 10*6/uL [facility] WBC (Bld) [#/Vol] 9 10*3/uL 3.6 - 10.7 10*3/uL [facility] METABOLIC PANE Victor M 02-22-2025 Albumin [Mass/Vol] 1.8 g/dL Low 3.5-5.0 [facility] Comment on above: Performed By: #### L AB103, [id number], LAB17 ####Circuit Court Magistrate: DOMENICA JARA ([id number])[facility])[address] [place] [address] ALP [Catalytic activity/Vol] 120 U/L Normal 40-150 [facility] Comment on above: Performed By: #### Tameka AB103, [id number], LAB17 ####Circuit Court Magistrate: DOMENICA JARA ([id number])[facility])[address] [place] [address] ALT [Catalytic activity/Vol] 9 U/L Normal <40 [facility] Comment on above: Performed By: #### Tameka AB103, [id number], LAB17 ####Circuit Court Magistrate: DOMENICA JARA ([id number])[facility])[address] [place] [address] Anion gap [Moles/Vol] 13 mmol/L Normal 3-13 [facility] Comment on above: Performed By: #### L AB103, [id number], LAB17 ####Circuit Court Magistrate: DOMENICA JARA ([id number])[facility])[address] [place] [address] AST [Catalytic activity/Vol] 35 U/L High <34 [facility] Comment on above: Performed By: #### L AB103, [id number], LAB17 ####Circuit Court Magistrate: DOMENICA JARA ([id number])[facility])[address] [place] [address] Bilirubin [Mass/Vol] 0.6 mg/dL Normal <1.2 [facility] Comment on above: Performed By: #### L AB103, [id number], LAB17 ####Circuit Court Magistrate: DOMENICA JARA ([id number])[facility])[address] [place] [address] [place] Calcium [Mass/Vol] 9.2 mg/dL Normal 8.4-10.2 [facility] Comment on above: Performed By: #### L AB103, [id number], LAB17 ####Circuit Court Magistrate: DOMENICA JARA ([id number])[facility])[address] [place] [address] [place] Chloride [Moles/Vol] 94 mmol/L Low 98-107 [facility] Comment on above: Performed By: #### L AB103, [id number], LAB17 ####Circuit Court Magistrate: DOMENICA JARA ([id number])[facility])[address] [place] [address] CO2 [Moles/Vol] 25 mmol/L Normal 22-29 [facility] Comment on above: Performed By: #### Tameka KWONG, [id number], LAB17 ####Circuit Court Magistrate: DOMENICA JARA ([id number])[facility])[address] [place] [address] Creatinine [Mass/Vol] 3.99 mg/dL High 0.72-1.25 [facility] Comment on above: Performed By: #### Tameka ABRadha, [id number], LAB17 ####Circuit Court Magistrate: DOMENICA JARA ([id number])[facility])[address] [place] [address] [place] GLOMERULAR FILTRATION RATE ML/MIN/1.73 SQ M.PREDICTED 16.5 mL/min/1.73m*2 Low >60.0 [facility] Comment on above: Result Comment: Calc ulation based on the Chronic Kidney Disease Epidemiology Collaboration (CKD-EPI) equation refit without adjustment for race Performed By: #### L ABRadha, [id number], LAB17 ####Circuit Court Magistrate: DOMENICA JARA ([id number])[facility])[address] [place] [address] [place] Glucose [Mass/Vol] 121 mg/dL High 74-100 [facility] Comment on above: Performed By: #### L AB103, [id number], LAB17 ####Circuit Court Magistrate: DOMENICA JARA ([id number])[facility])[address] [place] [address] Potassium [Moles/Vol] 3.4 mmol/L Low 3.5-5.1 [facility] Comment on above: Result Comment: [facility] potassium values may be up to 0.5 mmol/L lower than serum values. Performed By: #### L AB103, [id number], LAB17 ####Circuit Court Magistrate: DOMENICA JARA ([id number])[facility])[address] [place] [address] Protein [Mass/Vol] 6.7 g/dL Normal 6.4-8.3 [facility] Comment on above: Performed By: #### L AB103, [id number], LAB17 ####Circuit Court Magistrate: DOMENICA JARA ([id number])[facility])[address] [place] [address] Sodium [Moles/Vol] 132 mmol/L Low 136-145 [facility] Comment on above: Performed By: #### L AB103, [id number], LAB17 ####Circuit Court Magistrate: DOMENICA JARA ([id number])[facility])[address] [place] [address] Urea nitrogen [Mass/Vol] 36 mg/dL High 9-23 [facility] Comment on above: Performed By: #### L AB103, [id number], LAB17 ####Circuit Court Magistrate: DOMENICA JARA ([id number])[facility])[address] [place] [address] Comprehensive metabolic 1998 panelOrdered By: Michelle Olmstead on 02-22-2025 Albumin [Mass/Vol] 1.8 g/dL Low 3.5 - 5.0 g/dL [facility] ALP [Catalytic activity/Vol] 120 U/L 40 - 150 U/L [facility] ALT [Catalytic activity/Vol] 9 U/L NINF - 40 U/L [facility] Anion gap [Moles/Vol] 13 mmol/L 3 - 13 mmol/L [facility] AST [Catalytic activity/Vol] 35 U/L High NINF - 34 U/L [facility] Bilirubin [Mass/Vol] 0.6 mg/dL NINF - 1.2 mg/dL [facility] Calcium [Mass/Vol] 9.2 mg/dL 8.4 - 10. 2 mg/dL [facility] Chloride [Moles/Vol] 94 mmol/L Low 98 - 10 7 mmol/L [facility] CO2 [Moles/Vol] 25 mmol/L 22 - 29 mmol/L [facility] Creatinine [Mass/Vol] 3.99 mg/dL High 0.72 - 1.25 mg/dL [facility] GFR/1.73 sq M.predicted (S/P/Bld) [Vol rate/Area] 16.5 mL/min Low - PINF [facility] Glucose [Mass/Vol] 121 mg/dL High 74 - 100 mg/dL [facility] Interpretation and review of laboratory results Abnormal [facility] Potassium [Moles/Vol] 3.4 mmol/L Low 3.5 - 5.1 mmol/L [facility] Protein [Mass/Vol] 6.7 g/dL 6.4 - 8.3 g/dL [facility] Sodium [Moles/Vol] 132 mmol/L Low 136 - 145 mmol/L [facility] Urea nitrogen [Mass/Vol] 36 mg/dL High 9 - 23 mg/d L [facility] Consulton 02-22-2025 Consult Normal [facility] Consult Normal [facility] Consult Normal [facility] LEGIONELLA AND STREPTOCOCCUS URINE ANTIGENon 02-22-2025 LEGIONELLA AND STREPTOCOCCUS URINE ANTIGEN Normal [facility] Comment on above: Performed By: #### L [id number] ####Circuit Court Magistrate: DOMENICA JARA ([id number])[facility] ([facility] Laboratory - Chemistry and C hemistry - challengeon 02-22-2025 Magnesium [Mass/Vol] 2.2 mg/dL 1.6 - 2 .6 mg/dL [facility] Laboratory - Coagulationon 0 02-22-2025 PT Coag (Bld) [Time] 14.9 s High 9.0 - 12.0 s [facility] - Drug toxicology on 02-22-2025 Vancomycin [Mass/Vol] 12.6 ug/mL [facility] MAGNESIUMon 02-22-2025 Magnesium [Mass/Vol] 2.2 mg/dL Normal 1.6-2.6 [facility] Comment on above: Result Comment: ARPAN Kaplan COMMENTS:Higher values can be expected in females during menses. Performed By: #### L AB103, [id number], LAB17 ####Circuit Court Magistrate: DOMENICA JARA ([id number])[facility])[address] [place] [address] MRSA BY PCRon 02-22-2025 MRSA BY PCR Normal [facility] Comment on above: Performed By: #### L [id number] ####Circuit Court Magistrate: DOMENICA JARA ([id number])[facility])[address] [place] [address] MRSA DNA EMMANUEL+probe Ql (Nose) on 02-22-2025 Interpretation and review of laboratory results Normal [facility] mecA gene Not detected Not Detected [facility] Staphylococcus aureus Not detected Not Detected [facility] Magnesium [Mass/Vol]on 02-22 [facility] No Panel Informationon 02-22 [facility] Interpretation and review of laboratory results Normal [facility] Interpretation and review of laboratory results Abnormal [facility] No Panel InformationOrdered By: Lorin Bryant on 02-22-2025 Interpretation and review of laboratory results Normal [facility] Legionella pneumophila Ag Not detected Not Detected [facility] Streptococcus pneumoniae Ag Not detected Not Detected [facility] Nursing Noteon 02-22-2025 Nursing Note Pt keeps ordering door dash items. Have explained to pt on multiple occasions that staff cannot leave floor to get items and that it is after hours and door dashers most likely will not be allowed up onto the floors. Normal [facility] Nursing Note Normal [facility] Nursing Note Normal [facility] PHOSPHORUSon 02-22-2025 Phosphate [Mass/Vol] 3.2 mg/dL Normal 2.3-4.7 [facility] Comment on above: Performed By: #### L AB103, [id number], LAB17 ####Circuit Court Magistrate: DOMENICA JARA ([id number])[facility])[address] [place] [address] PNEUMONIA PCR PANELon 2024 PNEUMONIA PCR PANEL Normal [facility] Comment on above: Performed By: #### L [id number] ####Circuit Court Magistrate: DOMENICA JARA ([id number])[facility])[address] [place] [address] PROTHROMBIN TIMEon INR Coag (PPP) [Relative time] 1.4 {INR} High 0.9-1.1 [facility] Comment on above: Result Comment: Vaughn [...] Myocardial Infarction Performed By: #### L AB325, [id number] ####Circuit Court Magistrate: DOMENICA JARA ([id number])[facility])[address] [place] [address] PT Coag (PPP) [Time] 14.9 s High 9.0-12.0 [facility] Comment on above: Performed By: #### L AB325, [id number] ####Circuit Court Magistrate: DOMENICA JARA ([id number])[facility])[address] [place] [address] PT Coag (Bld) [Time]on 02-22 INR Coag (PPP) [Relative time] 1.4 {INR} High 0.9 - 1.1 [facility] Phosphate [Moles/Vol]on 01-26 Phosphate [Mass/Vol] 3.2 mg/dL 2.3 - 4 .7 mg/dL [facility] Progress Noteon 02-22-2025 Progress Note Normal [facility] Progress Note Normal [facility] Progress [facility] Normal [facility] Progress Note OCCUPATIONAL THERAPY [facility] Name/MRN: Jair Snyder ([id number]) Date: 02/22/2025 PT refusing to participate in therapy this AM, will continue to follow and re approach for OT eval. Ro Farnsworth, OT Normal [facility] Progress Note Normal [facility] Progress Note Normal [facility] RESPIRATORY CULTURE AND STAI Non 02-22-2025 RESPIRATORY CULTURE AND STAIN Normal [facility] Comment on above: Performed By: #### L [id number] ####Circuit Court Magistrate: DOMENICA JARA ([id number])[facility] ([facility])[address] [place] [address] Respiratory pathogens DNA an d RNA panel EMMANUEL+non-probe (Lower resp)Ordered By: Odalys Bustamante on 02-22-2025 Acinetobacter baumannii complex Not detected Not Detected [facility] Adenovirus Not detected Not Detected [facility] Chlamydia pneumoniae Not detected Not Detected [facility] Enterobacter cloacae complex Not detected Not Detected [facility] Escherichia coli Not detected Not Detected [facility] FLUAV RNA EMMANUEL+non-probe Ql (Lower resp) Not detected Not Detected [facility] FLUBV RNA EMMANUEL+non-probe Ql (Lower resp) Not detected Not Detected [facility] Haemophilus influenzae Not detected Not Detecte d [facility] Human Metapneumovirus Not detected Not Detected [facility] Human Rhinovirus/Enterovirus Not detected Not Detected [facility] Interpretation and review of laboratory results Abnormal [facility] Klebsiella (Enterobacter) aerogenes Not detected Not Detected [facility] Klebsiella oxytoca Detected Abnormal Not Detected [facility] Klebsiella pneumoniae Not detected Not Detected [facility] Legionella pneumophila Not detected Not Detecte d [facility] mecA Not detected Not Detected [facility] Moraxella catarrhalis Not detected Not Detected [facility] Mycoplasma pneumoniae Not detected Not Detected [facility] Parainfluenza virus Not detected Not Detected [facility] Proteus spp Not detected Not [facility] Pseudomonas aeruginosa Not detected Not Detecte d [facility] RSV RNA EMMANUEL+probe Ql (Resp) Not detected Not Detected [facility] S. agalactiae Org specific cx Ql (Vag fld) Not detected Not Detected [facility] ealt SARS-CoV-2 (COVID-19) RNA EMMANUEL+non-probe Ql (Nph) Not detected Not Detected [facility] Serratia marcescens Not detected Not Detected [facility] Staphylococcus aureus Detected Abnormal Not Detected [facility] Streptococcus pneumoniae Not detected Not Detec yo [facility] Streptococcus pyogenes Not detected Not Detecte d [facility] VANCOMYCIN, RANDOMon 025 VANCOMYCIN 12.6 ug/mL Normal [facility] Comment on above: Result Comment: ARPAN Kaplan COMMENTS:This level is ordered to be drawn 4 hours post- HD. ThanksToxicity is seen at concentrations >80-100 ug/mLTherapeutic (Peak) range: 20-40Therapeutic (Trough) range: 5-10 Performed By: #### L AB40 ####Circuit Court Magistrate: DOMENICA JARA ([id number])[facility] ([address] aPTT Coag (Bld) [Time]on aPTT Coag (PPP) [Time] 52.1 s High 20.0 - 30.5 s [facility] Interpretation and review of laboratory results Abnormal [facility] aPTT Coag (PPP) [Time] 54.9 s High 20.0 - 30.5 s [facility] 30on 02-21-2025 30 Normal [facility] [id number] 02-21-2025 [id number] [facility]Tiffanie campbell signed by Kaity Sepulveda RN on 02/21/2025 at 12:54 PM Normal [facility] [id number] [facility] 36on 02-21-2025 36 Normal [facility] APTTon 02-21-2025 aPTT Coag (Bld) [Time] 50.3 s High 20.0-30.[address] [facility] Comment on above: Result Comment: ARPAN Kaplan COMMENTS:NOTE: The therapeutic time for Heparin anticoagulation, based on Xa activity inhibition, is an APTT of 46-80 seconds. Performed By: #### L AB325 ####Circuit Court Magistrate: DOMENICA JARA ([id number])[facility])[address] [place] [address] aPTT Coag (Bld) [Time] 32.6 s High 20.0-30.5 [facility] Comment on above: Result Comment: ARPAN Kaplan COMMENTS:NOTE: The therapeutic time for Heparin anticoagulation, based on Xa activity inhibition, is an APTT of 46-80 seconds. Performed By: #### L AB325 ####Circuit Court Magistrate: DOMENICA JARA ([id number])[facility])[address] [place] [address] BLOOD TYPE AND SCREEN GELon 02-21-2025 ABO GROUPING O Normal [facility] Comment on above: Performed By: #### L AB276 ####Circuit Court Magistrate: DOMENICA JARA ([id number])[facility] ([facility])[address] [place] [address] RH TYPE IN BLOOD Negative Normal [facility] Comment on above: Performed By: #### L AB276 ####Circuit Court Magistrate: DOMENICA JARA ([id number])[facility] ([facility])[address] [place] [address] Blood type and Crossmatch pa freida (Bld)on 02-21-2025 ABO group Nom (Bld) O [facility] Blood group antibody screen GEL Ql Negative [facility] D Ag Ql (RBC) Negative [facility] C-REACTIVE PROTEINon 025 CRP [Mass/Vol] 60.3 mg/L High <5.0 [facility] Comment on above: Performed By: #### L AB149, [id number], LAB17, QCH180, [id number] ####Circuit Court Magistrate: DOMENICA JARA ([id number])[facility])[address] [place] [address] CBC (HEMOGRAM)on 02-21-2025 Erythrocyte distribution width (RBC) [Ratio] 19.0 % High 11.5-15.0 [facility] Comment on above: Performed By: #### L [id number] ####Circuit Court Magistrate: DOMENICA [id number])[facility])[address] [place] [address] Hematocrit (Bld) [Volume fraction] 25.7 % Low 40.0-52.0 [facility] Comment on above: Performed By: #### L AB294 ####Circuit Court Magistrate: DOMENICA JARA ([id number])[facility])[address] [place] [address] Hemoglobin (Bld) [Mass/Vol] 8.3 g/dL Low 13.0-18.0 [facility] Comment on above: Performed By: #### L AB294 ####Circuit Court Magistrate: DOMENICA JARA ([id number])[facility])[address] [place] [address] MCH (RBC) [Entitic mass] 29.0 pg Normal 26.0-34.0 [facility] Comment on above: Performed By: #### L AB294 ####Circuit Court Magistrate: DOMENICA JARA ([id number])[facility])[address] [place] [address] MCHC 32.3 % Normal 30.5-36.0 [facility] Comment on above: Performed By: #### L AB294 ####Circuit Court Magistrate: DOMENICA JARA ([id number])[facility])[address] [place] [address] MCV (RBC) [Entitic vol] 89.9 fL Normal 77.0-99.0 [facility] Comment on above: Performed By: #### L AB294 ####Circuit Court Magistrate: DOMENICA JARA ([id number])[facility])[address] [place] [address] Platelet mean volume (Bld) [Entitic vol] 8.9 fL Low 9.0-12.7 [facility] Comment on above: Performed By: #### L [id number] ####Circuit Court Magistrate: DOMENICA JARA ([id number])[facility])[address] [place] [address] Platelets (Bld) [#/Vol] 316 10*3/uL Normal 140-440 [facility] Comment on above: Performed By: #### L [id number] ####Circuit Court Magistrate: DOMENICA JARA ([id number])[address] RBC (Bld) [#/Vol] 2.86 10*6/uL Low 4.40-5.90 [facility] Comment on above: Performed By: #### L [id number] ####Circuit Court Magistrate: DOMENICA JARA ([id number])[facility])[address] [place] [address] WBC (Bld) [#/Vol] 7.0 10*3/uL Normal 3.6-10.7 [facility] Comment on above: Performed By: #### L [id number] ####Circuit Court Magistrate: DOMENICA JARA ([id number])[address] CBC panel Auto (Bld)on 02-21 Erythrocyte distribution width (RBC) [Ratio] 19 % High 11.5 - 15.0 % [facility] Hematocrit (Bld) [Volume fraction] 25.7 % Low 40.0 - 52.0 % [facility] Hemoglobin (Bld) [Mass/Vol] 8.3 g/dL Low 13.0 - 18.0 g/dL [facility] Interpretation and review of laboratory results Abnormal [facility] MCH (RBC) [Entitic mass] 29 pg 26. 0 - 34.0 pg [facility] MCHC (RBC) [Mass/Vol] 32.3 % 30.5 - 36.0 % [facility] MCV (RBC) [Entitic vol] 89.9 fL 77.0 - 99.0 fL [facility] [employer] Platelet mean volume (Bld) [Entitic vol] 8.9 fL Low 9.0 - 12.7 fL [facility] Platelets (Bld) [#/Vol] 316 10*3/uL 140 - 440 10*3/uL [facility] RBC (Bld) [#/Vol] 2.86 10*6/uL Low 4.40 - 5.9 0 10*6/uL [facility] WBC (Bld) [#/Vol] 7 10*3/uL 3.6 - 10.7 10*3/uL [facility] COMPREHENSIVE METABOLIC PANE Victor M 02-21-2025 Albumin [Mass/Vol] 2.0 g/dL Low 3.5-5.0 [facility] Comment on above: Performed By: #### L AB149, [id number], LAB17, [id number], [id number] ####Circuit Court Magistrate: DOMENICA JARA ([id number])[facility])[address] [place] [address] ALP [Catalytic activity/Vol] 120 U/L Normal 40-150 [facility] Comment on above: Performed By: #### L AB149, [id number], LAB17, KPT334, YAR403 ####Circuit Court Magistrate: DOMENICA JARA ([id number])[facility])[address] [place] [address] ALT [Catalytic activity/Vol] 8 U/L Normal <40 [facility] Comment on above: Performed By: #### L AB149, [id number], LAB17, FYU265, NNR436 ####Circuit Court Magistrate: DOMENICA JARA ([id number])[facility])[address] [place] [address] Anion gap [Moles/Vol] 12 mmol/L Normal 3-13 [facility] Comment on above: Performed By: #### L AB149, [id number], LAB17, [id number], [id number] ####Circuit Court Magistrate: DOMENICA JARA ([id number])[facility])[address] [place] [address] AST [Catalytic activity/Vol] 39 U/L High <34 [facility] Comment on above: Performed By: #### L AB149, [id number], LAB17, PQY742, EOG613 ####Circuit Court Magistrate: DOMENICA JARA ([id number])[facility])[address] [place] [address] Bilirubin [Mass/Vol] 0.8 mg/dL Normal <1.2 [facility] Comment on above: Performed By: #### L AB149, [id number], LAB17, AEA177, SVR489 ####Circuit Court Magistrate: DOMENICA JARA ([id number])[facility])[address] [place] [address] Calcium [Mass/Vol] 9.3 mg/dL Normal 8.4-10.[address] [facility] Comment on above: Performed By: #### L AB149, [id number], LAB17, [id number], OTA539 ####Circuit Court Magistrate: DOMENICA JARA ([id number])[facility] ([facility])[address] [place] [address] Chloride [Moles/Vol] 91 mmol/L Low 98-107 [facility] Comment on above: Performed By: #### L AB149, [id number], LAB17, FLT737, XZV768 ####Circuit Court Magistrate: DOMENICA JARA ([id number])[facility])[address] [place] [address] CO2 [Moles/Vol] 28 mmol/L Normal 22-29 [facility] Comment on above: Performed By: #### L AB149, [id number], LAB17, [id number], [id number] ####Circuit Court Magistrate: DOMENICA JARA ([id number])[facility] ([facility])[address] [place] [address] Creatinine [Mass/Vol] 2.89 mg/dL High 0.72-1.25 [facility] Comment on above: Performed By: #### L AB149, [id number], LAB17, [id number], [id number] ####Circuit Court Magistrate: DOMENICA JARA ([id number])[facility] ([facility])[address] [place] [address] [place] GLOMERULAR FILTRATION RATE ML/MIN/1.73 SQ M.PREDICTED 24.3 mL/min/1.73m*2 Low >60.0 [facility] Comment on above: Result Comment: Calc ulation based on the Chronic Kidney Disease Epidemiology Collaboration (CKD-EPI) equation refit without adjustment for race Performed By: #### L AB149, [id number], LAB17, [id number], [id number] ####Circuit Court Magistrate: DOMENICA JARA ([id number])[facility])[address] [place] [address] Glucose [Mass/Vol] 74 mg/dL Normal 74-100 [facility] Comment on above: Performed By: #### L AB149, [id number], LAB17, [id number], [id number] ####Circuit Court Magistrate: DOMENICA JARA ([id number])[facility])[address] [place] [address] Potassium [Moles/Vol] 3.1 mmol/L Low 3.5-5.1 [facility] Comment on above: Result Comment: [facility] potassium values may be up to 0.5 mmol/L lower than serum values. Performed By: #### L AB149, [id number], LAB17, [id number], [id number] ####Circuit Court Magistrate: DOMENICA JARA ([id number])[facility])[address] [place] [address] Protein [Mass/Vol] 6.8 g/dL Normal 6.4-8.3 [facility] Comment on above: Performed By: #### L AB149, [id number], LAB17, [id number], [id number] ####Circuit Court Magistrate: DOMENICA JARA ([id number])[facility])[address] [place] [address] Sodium [Moles/Vol] 131 mmol/L Low 136-145 [facility] Comment on above: Performed By: #### L AB149, [id number], LAB17, [id number], EVF419 ####Circuit Court Magistrate: DOMENICA JARA ([id number])[facility])[address] [place] [address] [place] Urea nitrogen [Mass/Vol] 29 mg/dL High 9-23 [facility] Comment on above: Performed By: #### L AB149, [id number], LAB17, [id number], [id number] ####Circuit Court Magistrate: DOMENICA JARA ([id number])[facility])[address] [place] [address] [place] CRP [Mass/Vol]on 02-21-2025 Interpretation and review of laboratory results Abnormal [facility] Comprehensive metabolic 1998 panelon 02-21-2025 Albumin [Mass/Vol] 2 g/dL Low 3.5 - 5.0 g/dL [facility] ALP [Catalytic activity/Vol] 120 U/L 40 - 150 U/L [facility] ALT [Catalytic activity/Vol] 8 U/L NINF - 40 U/L [facility] Anion gap [Moles/Vol] 12 mmol/L 3 - 13 mmol/L [facility] AST [Catalytic activity/Vol] 39 U/L High NINF - 34 U/L [facility] Bilirubin [Mass/Vol] 0.8 mg/dL NINF - 1.2 mg/dL [facility] Calcium [Mass/Vol] 9.3 mg/dL 8.4 - 10. 2 mg/dL [facility] Chloride [Moles/Vol] 91 mmol/L Low 98 - 10 7 mmol/L [facility] CO2 [Moles/Vol] 28 mmol/L 22 - 29 mmol/L [facility] Creatinine [Mass/Vol] 2.89 mg/dL High 0.72 - 1.25 mg/dL [facility] GFR/1.73 sq M.predicted (S/P/Bld) [Vol rate/Area] 24.3 mL/min Low - PINF [facility] Glucose [Mass/Vol] 74 mg/dL 74 - 100 mg/dL [facility] Potassium [Moles/Vol] 3.1 mmol/L Low 3.5 - 5.1 mmol/L [facility] Protein [Mass/Vol] 6.8 g/dL 6.4 - 8.3 g/dL [facility] Sodium [Moles/Vol] 131 mmol/L Low 136 - 145 mmol/L [facility] Urea nitrogen [Mass/Vol] 29 mg/dL High 9 - 23 mg/d L [facility] Consulton 02-21-2025 Consult Normal [facility] Consult Normal [facility] Consult Normal [facility] Consult Normal [facility] Laboratory - Chemistry and C hemistry - challengeon 02-21-2025 CRP [Mass/Vol] 60.3 mg/L High NINF - 5.0 mg/L [facility] Procalcitonin [Mass/Vol] 0.68 ng/mL High PROSPER F - 0.07 ng/mL [facility] Magnesium [Mass/Vol] 2.2 mg/dL 1.6 - 2 .6 mg/dL [facility] MAGNESIUMon 02-21-2025 Magnesium [Mass/Vol] 2.2 mg/dL Normal 1.6-2.6 [facility] Comment on above: Result Comment: ARPAN R COMMENTS:Higher values can be expected in females during menses. Performed By: #### L AB149, [id number], LAB17, KMR659, [id number] ####Circuit Court Magistrate: DOMENICA JARA ([id number])[facility])[address] [place] [address] Magnesium [Mass/Vol]on 02-21 Interpretation and review of laboratory results Normal [facility] No Panel Informationon 02-21 Interpretation and review of laboratory results Abnormal [facility] Nursing Noteon 02-21-2025 Nursing Note Pt ordered [employer] food. Assisted pt to sit up on bedside to eat. Normal [facility] Nursing Note Normal [facility] Nursing Note Pt declining scheduled medications until after RN calls facility to see if he is actively taking those medications" per pt request. This RN spoke with RN at [facility] to verify medications that pt is taking. Normal [facility] Nursing Note Normal [facility] Nursing Note Pt removed NC from nose, stated he doesn't need it anymore. Respiratory Therapy came in to give pt, scheduled breathing treatment, pt stated he didn't need one." Normal [facility] Nursing Note Normal [facility] PHOSPHORUSon 02-21-2025 Phosphate [Mass/Vol] 2.0 mg/dL Low 2.3-4.7 [facility] Comment on above: Performed By: #### L AB149, [id number], LAB17, ONR340, [id number] ####Circuit Court Magistrate: DOMENICA JARA ([id number])[facility])[address] [place] [address] PROCALCITONIN TESTon 025 PROCALCITONIN 0.68 ng/mL High <0.07 [facility] Comment on above: Result Comment: ORDE R COMMENTS:PCT <0.50 = Low risk of severe sepsis and/or septic shock.PCT >2.00 = High risk of severe sepsis and/or septic shock. Performed By: #### L AB149, [id number], LAB17, [id number], DTM695 ####Circuit Court Magistrate: DOMENICA JARA ([id number])[facility])[address] [place] [address] [place] Phosphate [Moles/Vol]on 01-26 Phosphate [Mass/Vol] 2 mg/dL Low 2.3 - 4 .7 mg/dL [facility] Procalcitonin [Mass/Vol]on 02-21-2025 Interpretation and review of laboratory results Abnormal [facility] Health Progress Noteon 02-21-2025 Progress Note PHYSICAL THERAPY [facility] Name/MRN: Jair Snyder ([id number]) Date: 02/21/2025 Pt declined to work with therapy at this time, stating he wanted to eat first. Will reattempt at a later date. Sangeeta Sarabia, PT Normal [facility] Progress Note Normal [facility] Progress Note Normal [facility] RESPIRATORY PATHOGENS PANEL BY PCRon 02-21-2025 RESPIRATORY PATHOGENS PANEL BY PCR Normal [facility] Comment on above: Performed By: #### L [id number] ####Circuit Court Magistrate: DOMENICA JARA ([id number])[facility])[address] [place] [address] Respiratory pathogens DNA an d RNA panel EMMANUEL+non-probe (Nph)on 02-21-2025 Adenovirus Not detected Not Detected [facility] th B. pertussis DNA EMMANUEL+probe Ql (Unsp spec) Not detected Not Detected [facility] Bordetella parapertussis Not detected Not Detec yo [facility] Chlamydia pneumoniae Not detected Not Detected [facility] Coronavirus 229E Not detected Not Detected [facility] Coronavirus HKU1 Not detected Not Detected [facility] Coronavirus NL63 Not detected Not Detected [facility] Coronavirus OC43 Not detected Not Detected [facility] FLUAV RNA EMMANUEL+non-probe Ql (Nph) Not detected Not Detected [facility] FLUBV RNA EMMANUEL+non-probe Ql (Nph) Not detected Not Detected [facility] Human Metapneumovirus Not detected Not Detected [facility] Human Rhinovirus/Enterovirus Not detected Not Detected [facility] Interpretation and review of laboratory results Normal [facility] Mycoplasma pneumoniae Not detected Not Detected [facility] Parainfluenza 1 Not detected Not Detected [facility] Parainfluenza 2 Not detected Not Detected [facility] Parainfluenza 3 Not detected Not Detected [facility] Parainfluenza 4 Not detected Not Detected [facility] Respiratory Syncytial Virus Not detected Not Detected [facility] SARS-CoV-2 (COVID-19) RNA EMMANUEL+non-probe Ql (Nph) Not detected Not Detected [facility] aPTT Coag (Bld) [Time]on aPTT Coag (PPP) [Time] 50.3 s High 20.0 - 30.5 s [facility] Interpretation and review of laboratory results Abnormal [facility] aPTT Coag (PPP) [Time] 32.6 s High 20.0 - 30.5 s [facility] Interpretation and review of laboratory results Abnormal [facility] APTTon 02-20-2025 aPTT Coag (Bld) [Time] 26.2 s Normal 20.0-30.[address] [facility] Comment on above: Result Comment: ARPAN Kaplan COMMENTS:NOTE: The therapeutic time for Heparin anticoagulation, based on Xa activity inhibition, is an APTT of 46-80 seconds. Performed By: #### L AB320, [id number] ####Circuit Court Magistrate: FENG CONSTANTINO ([id number])[facility] ([facility])[address] [place] [address] Absolute lymphocyte countOrd ered By: Kayley Melendrez on 02-20-2025 Lymphocytes Auto (Unsp spec) [#/Vol] 1.13 10*3/uL 0.83-4.51 [facility] Absolute neutrophil countOrd ered By: Kayley Melendrez on 02-20-2025 Neutrophils (Bld) [#/Vol] 4.6 10*3/uL 2.0-7.7 [facility] Anion gap in Serum or Plasma Ordered By: Kayley Melendrez on 02-20-2025 Anion gap [Moles/Vol] 12 mmol/L 5-15 [facility] Automated lymphocyte count a s percentage of total leukocytesOrdered By: Kayley Melendrez on 02-20-2025 Lymphocytes/100 WBC Auto (Unsp spec) 16.4 % Low 19-41 [facility] BASIC METABOLIC PANELon 01-26 Anion gap [Moles/Vol] 12 mmol/L Normal 3-13 [facility] Comment on above: Performed By: #### L AB15 ####Circuit Court Magistrate: FENG CONSTANTINO ([id number])[facility])[address] Calcium [Mass/Vol] 9.6 mg/dL Normal 8.4-10.2 [facility] Comment on above: Performed By: #### L AB15 ####Circuit Court Magistrate: FENG CONSTANTINO ([id number])[facility] ([facility])[address] Chloride [Moles/Vol] 92 mmol/L Low 98-107 [facility] Comment on above: Performed By: #### L AB15 ####Circuit Court Magistrate: FENG CONSTANTINO ([id number])[facility] ([facility])[address] CO2 [Moles/Vol] 29 mmol/L Normal 22-29 [facility] Comment on above: Performed By: #### L AB15 ####Circuit Court Magistrate: FENG CONSTANTINO ([id number])[facility] ([facility])[address] [place] [address] [place] Creatinine [Mass/Vol] 2.57 mg/dL High 0.72-1.25 [facility] Comment on above: Performed By: #### L AB15 ####Circuit Court Magistrate: FENG CONSTANTINO ([id number])[facility] ([facility])[address] [place] [address] [place] GLOMERULAR FILTRATION RATE ML/MIN/1.73 SQ M.PREDICTED 27.9 mL/min/1.73m*2 Low >60.0 [facility] Comment on above: Result Comment: Calc ulation based on the Chronic Kidney Disease Epidemiology Collaboration (CKD-EPI) equation refit without adjustment for race Performed By: #### L AB15 ####Circuit Court Magistrate: FENG CONSTANTINO ([id number])[facility] ([facility])[address] Glucose [Mass/Vol] 80 mg/dL Normal 74-100 [facility] Comment on above: Performed By: #### L AB15 ####Circuit Court Magistrate: FENG CONSTANTINO ([id number])[facility] ([facility])[address] Potassium [Moles/Vol] 3.1 mmol/L Low 3.5-5.1 [facility] Comment on above: Result Comment: [facility] potassium values may be up to 0.5 mmol/L lower than serum values. Performed By: #### L AB15 ####Circuit Court Magistrate: FENG CONSTANTINO ([id number])[facility] [place] ([facility])[address] Sodium [Moles/Vol] 133 mmol/L Low 136-145 [facility] Comment on above: Performed By: #### L AB15 ####Circuit Court Magistrate: FENG CONSTANTINO ([id number])[facility] [place] ([facility])[address] Urea nitrogen [Mass/Vol] 29 mg/dL High 9-23 [facility] Comment on above: Performed By: #### L AB15 ####Circuit Court Magistrate: FENG CONSTANTINO ([id number])[facility] ([facility])[address] BUN/creatinine ratioOrdered By: Kayley Melendrez on 02-20-2025 Urea nitrogen/Creatinine [Mass ratio] 11.5 mg/mg 10-20 [facility] Basic metabolic 1998 panelon 02-20-2025 Anion gap [Moles/Vol] 12 mmol/L 3 - 13 mmol/L [facility] Calcium [Mass/Vol] 9.6 mg/dL 8.4 - 10. 2 mg/dL [facility] Chloride [Moles/Vol] 92 mmol/L Low 98 - 10 7 mmol/L [facility] CO2 [Moles/Vol] 29 mmol/L 22 - 29 mmol/L [facility] Creatinine [Mass/Vol] 2.57 mg/dL High 0.72 - 1.25 mg/dL [facility] GFR/1.73 sq M.predicted (S/P/Bld) [Vol rate/Area] 27.9 mL/min Low - PINF [facility] Glucose [Mass/Vol] 80 mg/dL 74 - 100 mg/dL [facility] Interpretation and review of laboratory results Abnormal [facility] Potassium [Moles/Vol] 3.1 mmol/L Low 3.5 - 5.1 mmol/L [facility] Sodium [Moles/Vol] 133 mmol/L Low 136 - 145 mmol/L [facility] Urea nitrogen [Mass/Vol] 29 mg/dL High 9 - 23 mg/d L [facility] Basophil percentageOrdered B y: Kayley Melendrez on 02-20-2025 Basophils/100 WBC (Bld) 1.4 % High 0-1 [facility] Bilirubin, totalOrdered By: Kayley Melendrez on 02-20-2025 Bilirubin [Mass/Vol] 0.64 mg/dL 0.00-1.30 [facility] CBC (HEMOGRAM)on 02-20-2025 Erythrocyte distribution width (RBC) [Ratio] 18.8 % High 11.5-15.0 [facility] Comment on above: Performed By: #### L AB294 ####Circuit Court Magistrate: FENG CONSTANTINO ([id number])[facility] ([facility])[address] [place] [address] Hematocrit (Bld) [Volume fraction] 26.8 % Low 40.0-52.0 [facility] Comment on above: Performed By: #### L AB294 ####Circuit Court Magistrate: FENG [id number])[facility] ([facility])[address] Hemoglobin (Bld) [Mass/Vol] 8.7 g/dL Low 13.0-18.0 [facility] Comment on above: Performed By: #### L AB294 ####Circuit Court Magistrate: FENG CONSTANTINO ([id number])[facility] ([facility])[address] MCH (RBC) [Entitic mass] 28.7 pg Normal 26.0-34.0 [facility] Comment on above: Performed By: #### L AB294 ####Circuit Court Magistrate: FENG CONSTANTINO ([id number])[facility] ([facility])[address] MCHC 32.5 % Normal 30.5-36.0 [facility] Comment on above: Performed By: #### L AB294 ####Circuit Court Magistrate: FENG CONSTANTINO ([id number])[facility] ([facility])[address] MCV (RBC) [Entitic vol] 88.4 fL Normal 77.0-99.0 [facility] Comment on above: Performed By: #### L AB294 ####Circuit Court Magistrate: FENG CONSTANTINO ([id number])[facility] ([facility])[address] [place] [address] Platelet mean volume (Bld) [Entitic vol] 8.5 fL Low 9.0-12.7 [facility] Comment on above: Performed By: #### L AB294 ####Circuit Court Magistrate: FENG CONSTANTINO ([id number])[facility] [place] ([facility])[address] [place] [address] [place] Platelets (Bld) [#/Vol] 312 10*3/uL Normal 140-440 [facility] Comment on above: Performed By: #### L AB294 ####Circuit Court Magistrate: FENG CONSTANTINO ([id number])[facility] [place] ([facility])[address] RBC (Bld) [#/Vol] 3.03 10*6/uL Low 4.40-5.90 [facility] Comment on above: Performed By: #### L AB294 ####Circuit Court Magistrate: FENG CONSTANTINO ([id number])[facility] ([facility])[address] [place] [address] WBC (Bld) [#/Vol] 9.4 10*3/uL Normal 3.6-10.7 [facility] Comment on above: Performed By: #### L AB294 ####Circuit Court Magistrate: FENG CONSTANTINO ([id number])[facility] ([facility])[address] [place] [address] CBC W/Diff, Automatedon 05-2 -2024 Absolute Lymph 1.13 X10 3/uL Normal 0.83-4.51 [facility] Comment on above: Order Comment: 412.2 Performed By: #### L 500.4050, L300.3900, L100.0100 #### [facility] [address] [place], [address] Absolute Neut 4.6 X10 3/uL Normal 2.0-7.7 [facility] Comment on above: Order Comment: 412.2 Performed By: #### L 500.4050, L300.3900, L100.0100 #### [facility] [address] [place], [address] Basophils/100 WBC (Bld) 1.4 % High 0-1 [facility] Comment on above: Order Comment: 412.2 Performed By: #### L 500.4050, L300.3900, L100.0100 #### [facility] [address] [place], [address] Eosinophils/100 WBC (Bld) 2.5 % Normal 0-5 [facility] Comment on above: Order Comment: 412.2 Performed By: #### L 500.4050, L300.3900, L100.0100 #### [facility] [address] [place], [address] Erythrocyte distribution width (RBC) [Ratio] 19.4 % High 11.6-14.6 [facility] Comment on above: Order Comment: 412.2 Performed By: #### L 500.4050, L300.3900, L100.0100 #### [facility] [address] [place], [address] Hematocrit (Bld) [Volume fraction] 25.9 % Low 40-54 [facility] Comment on above: Order Comment: 412.2 Performed By: #### L 500.4050, L300.3900, L100.0100 #### [facility] [address] [place], [address] Hemoglobin (Bld) [Mass/Vol] 8.5 g/dL Low 13.0-16.5 [facility] Comment on above: Order Comment: 412.2 Performed By: #### L 500.4050, L300.3900, L100.0100 #### [facility] [address] [place], [address] IG% 0.400 Normal 0.0-0.9 [facility] Comment on above: Order Comment: 412.2 Result Comment: IG% - Immature Granulocytes (promyelocytes, myelocytes and metamyelocytes) > 1% indicates that a LEFT SHIFT is Present. Performed By: #### L 500.4050, L300.3900, L100.0100 #### [facility] [address] [place], [address] Lymphocytes/100 WBC (Bld) 16.4 % Low 19-41 [facility] Comment on above: Order Comment: 412.2 Performed By: #### L 500.4050, L300.3900, L100.0100 #### [facility] [address] [place], [address] MCH (RBC) [Entitic mass] 30.1 pg Normal 27.0-32.0 [facility] Comment on above: Order Comment: 412.2 Performed By: #### L 500.4050, L300.3900, L100.0100 #### [facility] [address] [place], [address] MCHC (RBC) [Mass/Vol] 32.8 g/dL Normal 32-36 [facility] Comment on above: Order Comment: 412.2 Performed By: #### L 500.4050, L300.3900, L100.0100 #### [facility] [address] [place], [address] MCV (RBC) [Entitic vol] 91.8 fL Normal 80-94 [facility] Comment on above: Order Comment: 412.2 Performed By: #### L 500.4050, L300.3900, L100.0100 #### [facility] [address] [place], [address] Monocytes/100 WBC (Bld) 12.0 % High 0-10 [facility] Comment on above: Order Comment: 412.2 Performed By: #### L 500.4050, L300.3900, L100.0100 #### [facility] [address] [place], [address] Neutrophils/100 WBC (Bld) 67.3 % Normal 47-70 [facility] Comment on above: Order Comment: 412.2 Performed By: #### L 500.4050, L300.3900, L100.0100 #### [facility] [address] [place], [address] Nucleated RBC (Bld) [#/Vol] 0 10*3/uL Normal 0-5 [facility] Comment on above: Order Comment: 412.2 Performed By: #### L 500.4050, L300.3900, L100.0100 #### [facility] [address] [place], [address] Platelet mean volume (Bld) [Entitic vol] 9.0 fL Normal 6.2-12.0 [facility] Comment on above: Order Comment: 412.2 Performed By: #### L 500.4050, L300.3900, L100.0100 #### [facility] [address] [place], [address] Platelets (Bld) [#/Vol] 322 10*3/uL Normal 150-450 [facility] Comment on above: Order Comment: 412.2 Performed By: #### L 500.4050, L300.3900, L100.0100 #### [facility] [address] [place], [address] RBC (Bld) [#/Vol] 2.82 10*6/uL Low 4.6-6.2 [facility] Comment on above: Order Comment: 412.2 Performed By: #### L 500.4050, L300.3900, L100.0100 #### [facility] [address] [place], [address] RDW SD 63.5 fl High 35.1-43.9 [facility] Comment on above: Order Comment: 412.2 Performed By: #### L 500.4050, L300.3900, L100.0100 #### [facility] [address] [place], [address] WBC (Bld) [#/Vol] 6.9 10*3/uL Normal 4.4-11.0 [facility] Comment on above: Order Comment: 412.2 Performed By: #### L 500.4050, L300.3900, L100.0100 #### [facility] [address] [place], [address] CBC panel Auto (Bld)on 02-20 Erythrocyte distribution width (RBC) [Ratio] 18.8 % High 11.5 - 15.0 % [facility] Hematocrit (Bld) [Volume fraction] 26.8 % Low 40.0 - 52.0 % [facility] Hemoglobin (Bld) [Mass/Vol] 8.7 g/dL Low 13.0 - 18.0 g/dL [facility] Interpretation and review of laboratory results Abnormal [facility] MCH (RBC) [Entitic mass] 28.7 pg 26. 0 - 34.0 pg [facility] MCHC (RBC) [Mass/Vol] 32.5 % 30.5 - 36.0 % [facility] MCV (RBC) [Entitic vol] 88.4 fL 77.0 - 99.0 fL [facility] Platelet mean volume (Bld) [Entitic vol] 8.5 fL Low 9.0 - 12.7 fL [facility] Platelets (Bld) [#/Vol] 312 10*3/uL 140 - 440 10*3/uL [facility] [facility] RBC (Bld) [#/Vol] 3.03 10*6/uL Low 4.40 - 5.9 0 10*6/uL [facility] WBC (Bld) [#/Vol] 9.4 10*3/uL 3.6 - 10.7 10*3/uL [facility] CT CHEST ANGIOGRAM W AND/OR WO IV CONTRASTon 02-20-2025 CT CHEST ANGIOGRAM W AND/OR WO IV CONTRAST Normal [facility] CTA Chest vessels WO and W c ontrast Dimitrios 02-20-2025 [facility] Radiology Study observation (narrative) [facility] CTA Chest vessels WO and W c ontrast IVOrdered By: Justo Milan on 02-20-2025 [facility] Work Phone: Carbon dioxide, total [Moles /volume] in Central venous bloodOrdered By: Kayley Melendrez on 02-20-2025 CO2 [Moles/Vol] 30.1 mmol/L 21.0-32.0 [facility] Chloride assayOrdered By: Carmen Melendrez on 05-27-2025 Chloride [Moles/Vol] 91 mmol/L Low 98-108 [facility] Comprehensive Metabolic Prof ilon 02-20-2025 Albumin [Mass/Vol] 3.0 g/dL Low 3.5-5.0 [facility] Comment on above: Order Comment: 412.2 Performed By: #### L 500.4050, L300.3900, L100.0100 #### [facility] [address] [place], [address] Albumin/Globulin [Mass ratio] 0.8 {ratio} Low 0.9-2.4 [facility] Comment on above: Order Comment: 412.2 Performed By: #### L 500.4050, L300.3900, L100.0100 #### [facility] [address] [place], [address] ALK PHOS 133 U/L High 40-129 [facility] Comment on above: Order Comment: 412.2 Performed By: #### L 500.4050, L300.3900, L100.0100 #### [facility] [address] [place], [address] ALT [Catalytic activity/Vol] 13 U/L Normal <=46 [facility] Comment on above: Order Comment: 412.2 Performed By: #### L 500.4050, L300.3900, L100.0100 #### [facility] [address] [place], [address] AST [Catalytic activity/Vol] 32 U/L Normal <=37 [facility] Comment on above: Order Comment: 412.2 Performed By: #### L 500.4050, L300.3900, L100.0100 #### [facility] [address] [place], [address] Bilirubin [Mass/Vol] 0.64 mg/dL Normal 0.00-1.30 [facility] Comment on above: Order Comment: 412.2 Performed By: #### L 500.4050, L300.3900, L100.0100 #### [facility] [address] [place], [address] BUN/CRE 11.5 RATIO Normal 10-20 [facility] Comment on above: Order Comment: 412.2 Performed By: #### L 500.4050, L300.3900, L100.0100 #### [facility] [address] [place], [address] Calcium [Mass/Vol] 9.8 mg/dL Normal 7.6-11.0 [facility] Comment on above: Order Comment: 412.2 Performed By: #### L 500.4050, L300.3900, L100.0100 #### [facility] [address] [place], [address] Chloride [Moles/Vol] 91 mmol/L Low 98-108 [facility] Comment on above: Order Comment: 412.2 Performed By: #### L 500.4050, L300.3900, L100.0100 #### [facility] [address] [place], [address] CO2 [Moles/Vol] 30.1 mmol/L Normal 21.0-32.0 [facility] Comment on above: Order Comment: 412.2 Performed By: #### L 500.4050, L300.3900, L100.0100 #### [facility] [address] [place], [address] Creatinine [Mass/Vol] 3.87 mg/dL High 0.70-1.20 [facility] Comment on above: Order Comment: 412.2 Performed By: #### L 500.4050, L300.3900, L100.0100 #### [facility] [address] [place], [address] GAP 12 Normal 5-15 [facility] Comment on above: Order Comment: 412.2 Performed By: #### L 500.4050, L300.3900, L100.0100 #### [facility] [address] [place], [address] GFR/1.73 sq M.predicted among non-blacks MDRD (S/P/Bld) [Vol rate/Area] 17 mL/min/{1.73_m2} Low >60 [facility] Comment on above: Order Comment: 412.2 Result Comment: mL/m in/1.73m2 CKD-EPI Creatinine Equation (2020) Performed By: #### L 500.4050, L300.3900, L100.0100 #### [facility] [address] [place], [address] Globulin (S) [Mass/Vol] 4.0 g/dL Normal 2.2-4.2 [facility] Comment on above: Order Comment: 412.2 Performed By: #### L 500.4050, L300.3900, L100.0100 #### [facility] [address] [place], [address] Glucose [Mass/Vol] 78 mg/dL Normal 70-99 [facility] Comment on above: Order Comment: 412.2 Performed By: #### L 500.4050, L300.3900, L100.0100 #### [facility] [address] [place], [address] Potassium [Moles/Vol] 3.0 mmol/L Low 3.3-5.1 [facility] Comment on above: Order Comment: 412.2 Performed By: #### L 500.4050, L300.3900, L100.0100 #### [facility] [address] [place], [address] Sodium [Moles/Vol] 134 mmol/L Normal 133-145 [facility] Comment on above: Order Comment: 412.2 Performed By: #### L 500.4050, L300.3900, L100.0100 #### [facility] [address] [place], [place], [address] T PROT 6.9 g/dL Normal 5.9-8.4 [facility] Comment on above: Order Comment: 412.2 Performed By: #### L 500.4050, L300.3900, L100.0100 #### [facility] [address] [place], [address] Urea nitrogen [Mass/Vol] 44 mg/dL High 4-19 [facility] Comment on above: Order Comment: 412.2 Performed By: #### L 500.4050, L300.3900, L100.0100 #### [facility] [address] [place], [place], [address] ED Nursing Noteon 02-20-2025 ED Nursing Note Called report to 3W nurse who will be taking over pt care. Normal [facility] ED Nursing Note Attempted to reposition pt and have him sit up but pt states "he feels fine and does not want to sit up"despite coughing up blood. Normal [facility] ED Nursing Note Pt placed on 2L NC due to O2 saturation of 90%. Currently 97 on 2L Normal [facility] ED Nursing Note Suction turned on at this time for pt due to increased coughing up of blood Normal [facility] ED Nursing Note Normal [facility] ED Nursing Note Normal [facility] ED Provider Noteon ED Provider Note Normal [facility] Eosinophil percentageOrdered By: Kayley Melendrez on 02-20-2025 Eosinophils/100 WBC (Bld) 2.5 % 0-5 [facility] Erythrocyte distribution wid th ratioOrdered By: Kayley Melendrez on 02-20-2025 Erythrocyte distribution width (RBC) [Ratio] 19.4 % High 11.6-14.6 [facility] Erythrocyte distribution wid th standard deviationOrdered By: Kayley Melendrez on 02-20-2025 Erythrocyte distribution width (RBC) [Ratio] 63.5 fl High 35.1-43.9 [facility] Glomerular filtration rate ( GFR) estimation/1.73 sq m using serum, plasma, or whole bOrdered By: Kayley Melendrez on 02-20-2025 GFR/1.73 sq M.predicted among non-blacks MDRD (S/P/Bld) [Vol rate/Area] 17 mL/min/{1.73_m2} Low >60 [facility] Comment on above: mL/min/1.73m2 CKD-EP I Creatinine Equation (2020) Hematocrit Auto (Bld) [Volum e fraction]Ordered By: Kayley Melendrez on 02-20-2025 Hematocrit (Bld) [Volume fraction] 25.9 % Low 40-54 [facility] Hemoglobin measurementOrdere d By: Kayley Melendrez on 02-20-2025 Hemoglobin (Bld) [Mass/Vol] 8.5 g/dL Low 13.0-16.5 [facility] Immature granulocytes/100 WB C Auto (Bld)Ordered By: Kayley Melendrez on 02-20-2025 Immature granulocytes/100 WBC (Bld) 0.400 % 0.0-0.9 [facility] Comment on above: IG% - Immature Granu locytes (promyelocytes, myelocytes and metamyelocytes) > 1% indicates that a LEFT SHIFT is Present. International normalized rat io (INR) calculationOrdered By: Kayley Melendrez on 02-20-2025 INR Coag (Bld) [Relative time] 1.4 {INR} [facility] - Chemistry and C hemistry - challengeOrdered By: Kayley Melendrez on 02-20-2025 AST [Catalytic activity/Vol] 32 U/L <38 [facility] - Coagulationon 0 02-20-2025 PT Coag (Bld) [Time] 14.7 s High 9.0 - 12.0 s [facility] MCV (mean corpuscular volume ) determinationOrdered By: Kayley Melendrez on 02-20-2025 MCV (RBC) [Entitic vol] 91.8 fL 80-94 [facility] Mean corpuscular hemoglobin (MCH) determinationOrdered By: Kayley Melendrez on 02-20-2025 MCH (RBC) [Entitic mass] 30.1 pg 27.0-32.0 [facility] Mean corpuscular hemoglobin concentration (MCHC) determinationOrdered By: [facility] Melendrez on 02-20-2025 MCHC (RBC) [Mass/Vol] 32.8 g/dL 32-36 [facility] Mean platelet volume determi nationOrdered By: [facility] Center[facility] Melendrez on 02-20-2025 Platelet mean volume (Bld) [Entitic vol] 9.0 fL 6.2-12.0 [facility] Monocyte percentageOrdered B y: [facility] Goodenselmasamson on 02-20-2025 Monocytes/100 WBC (Bld) 12.0 % High 0-10 [facility] Neutrophil percentageOrdered By: [facility] aneudyselmasamson on 02-20-2025 Neutrophils/100 WBC (Bld) 67.3 % 47-70 [facility] No Panel Informationon 02-20 [facility] Nucleated red blood cell per centageOrdered By: Kayley Melendrez on 02-20-2025 Nucleated RBC/100 WBC (Bld) [Ratio] 0 % 0-5 [facility] Nursing Noteon 02-20-2025 Nursing Note Pt arrived on floor via [employer] Normal [facility] PROTHROMBIN TIMEon INR Coag (PPP) [Relative time] 1.4 {INR} High 0.9-1.1 [facility] Comment on above: Result Comment: Vaughn [...] Myocardial Infarction Performed By: #### L [id number], [id number] ####Circuit Court Magistrate: FENG CONSTANTINO ([id number])TRIHEALTHMatt GALINDOChandana (SBHLAB)[address] [place] [address] [facility] PT Coag (PPP) [Time] 14.7 s High 9.0-12.0 [facility] Comment on above: Performed By: #### L [id number], [id number] ####Circuit Court Magistrate: FENG CONSTANTINO ([id number])TRIHEALTHMatt MYERSNEW SUNRISE REGIONAL TREATMENT CENTERChandana (SBHLAB)[address] [place], [place] [id number] [place] [address] PT Coag (Bld) [Time]on 02-20 INR Coag (PPP) [Relative time] 1.4 {INR} High 0.9 - 1.1 [facility] Interpretation and review of laboratory results Abnormal [facility] Platelet countOrdered By: Carmen Melendrez on 02-20-2025 Platelets (Bld) [#/Vol] 322 10*3/uL 150-450 [facility] Potassium measurement (mass/ volume)Ordered By: Kayley Melendrez on 02-20-2025 Potassium (Unsp spec) [Mass/Vol] 3.0 mmol/L Low 3.3-5.1 [facility] Prothrombin Time w/INRon INR Coag (PPP) [Relative time] 1.4 {INR} Normal [facility] Comment on above: Order Comment: 412.2 Performed By: #### L 500.4050, L300.3900, L100.0100 #### [facility] [address] [place], [address] PT Coag (PPP) [Time] 17.5 s High 11.7-14.9 [facility] Comment on above: Order Comment: 412.2 Performed By: #### L 500.4050, L300.3900, L100.0100 #### [facility] [address] [place], [address] Prothrombin timeOrdered By: Kayley Melendrez on 02-20-2025 PT Coag (PPP) [Time] 17.5 s High 11.7-14.9 [facility] RBC Auto (Bld) [#/Vol]Ordere d By: Kayley Melendrez on 02-20-2025 RBC (Bld) [#/Vol] 2.82 10*6/uL Low 4.6-6.2 [facility] Serum creatinine measurement (mass/volume)Ordered By: Kayley Melendrez on 02-20-2025 Creatinine [Mass/Vol] 3.87 mg/dL High 0.70-1.20 [facility] Serum globulin measurementOr dered By: Kayley Melendrez on 02-20-2025 Globulin (S) [Mass/Vol] 4.0 g/dL 2.2-4.2 [facility] Serum glucose measurement (m ass/volume)Ordered By: Kayley Melendrez on 02-20-2025 Glucose [Mass/Vol] 78 mg/dL 70-99 [facility] Serum or plasma alanine mayorga otransferase (ALT) measurementOrdered By: Kayley Melendrez on 02-20-2025 ALT [Catalytic activity/Vol] 13 U/L <47 [facility] Serum or plasma albumin audrey urement (mass/volume)Ordered By: Kayley Melendrez on 02-20-2025 Albumin [Mass/Vol] 3.0 g/dL Low 3.5-5.0 [facility] Serum or plasma albumin/glob ulin mass ratioOrdered By: Kayley Melendrez on 02-20-2025 Albumin/Globulin [Mass ratio] 0.8 {ratio} Low 0.9-2.4 [facility] Serum or plasma alkaline jacob sphatase measurementOrdered By: Kayley Melendrez on 02-20-2025 ALP [Catalytic activity/Vol] 133 U/L High 40-129 [facility] Serum or plasma calcium audrey urement (mass/volume)Ordered By: Kayley Melendrez on 02-20-2025 Calcium [Mass/Vol] 9.8 mg/dL 7.6-11.0 [facility] Serum or plasma urea nitroge n measurement (mass/volume)Ordered By: Kayley Melendrez on 02-20-2025 Urea nitrogen [Mass/Vol] 44 mg/dL High 4-19 [facility] Sodium levelOrdered By: Omega vásquez Parvin on 02-20-2025 Sodium [Moles/Vol] 134 mmol/L 133-145 [facility] Total proteinOrdered By: Lexis amparo Parvin on 02-20-2025 Protein [Mass/Vol] 6.9 g/dL 5.9-8.4 [facility] White blood cell (WBC) count Ordered By: Kayley Melendrez on 02-20-2025 WBC (Bld) [#/Vol] 6.9 10*3/uL 4.4-11.0 [facility] aPTT Coag (Bld) [Time]on aPTT Coag (PPP) [Time] 26.2 s 20.0 - 30.5 s [facility] Interpretation and review of laboratory results Normal [facility] International normalized rat io (INR) calculationOrdered By: Kayley Melendrez on 02-15-2025 INR Coag (Bld) [Relative time] 1.3 {INR} [facility] Prothrombin Time w/INRon INR Coag (PPP) [Relative time] 1.3 {INR} Normal [facility] Comment on above: Order Comment: 412.2 Performed By: #### L 500.4050, L300.3900, L100.0100 #### [facility] [address] [place], [address] PT Coag (PPP) [Time] 16.6 s High 11.7-14.9 [facility] Comment on above: Order Comment: 412.2 Performed By: #### L 500.4050, L300.3900, L100.0100 #### [facility] [address] [place], [address] Prothrombin timeOrdered By: Kayley Melendrez on 02-15-2025 PT Coag (PPP) [Time] 16.6 s High 11.7-14.9 [facility] Nursing Noteon 02-14-2025 Nursing Note Normal [facility] Progress Noteon 02-14-2025 Progress Note Patient completed 6 week course of Amp-Sulbactam on 02/13/25 for sacral osteomyelitis. Tunneled line has since been removed. Continue to monitor off antibiotics at this time. Continue wound care. Normal [facility] Progress Note Normal [facility] International normalized rat io (INR) measurement by fingerstickOrdered By: Kayley Melendrez on 02-13-2025 INR Coag (BldC) [Relative time] 1.7 [facility] Comment on above: Critical Value > 4.0 Protime w/INR Fingerstickon 02-13-2025 INR Coag (PPP) [Relative time] 1.7 {INR} Normal [facility] Comment on above: Result Comment: Crit ical Value > 4.0 Performed By: #### L 500.4050, L300.3900, L100.0100 #### [facility] [address] [place], [address] Protime Coagsen 19.1 SEC High 11.7-14.9 [facility] Comment on above: Performed By: #### L 500.4050, L300.3900, L100.0100 #### [facility] [address] [place], [address] Whole blood prothrombin time Ordered By: Kayley Melendrez on 02-13-2025 PT Coag (Bld) [Time] 19.1 s High 11.7-14.9 [facility] Absolute lymphocyte countOrd ered By: Kayley Melendrez on 02-12-2025 Lymphocytes Auto (Unsp spec) [#/Vol] 1.29 10*3/uL 0.83-4.51 [facility] Absolute neutrophil countOrd ered By: Kayley Melendrez on 02-12-2025 Neutrophils (Bld) [#/Vol] 4.7 10*3/uL 2.0-7.7 [facility] Anion gap in Serum or Plasma Ordered By: Kayley Melendrez on 02-12-2025 Anion gap [Moles/Vol] 12 mmol/L 5-15 [facility] Automated lymphocyte count a s percentage of total leukocytesOrdered By: Lexisamparo Melendrez on 02-12-2025 Lymphocytes/100 WBC Auto (Unsp spec) 17.7 % Low 19-41 [facility] BUN/creatinine ratioOrdered By: [facility]is[facility] campusjacob Melendrez on 02-12-2025 Urea nitrogen/Creatinine [Mass ratio] 10.3 mg/mg 10-20 [facility] Basophil percentageOrdered B y: Lexisamparo Melendrez on 02-12-2025 Basophils/100 WBC (Bld) 1.1 % High 0-1 [facility] Bilirubin, totalOrdered By: Kayley Melendrez on 02-12-2025 Bilirubin [Mass/Vol] 0.69 mg/dL 0.00-1.30 [facility] CBC W/Diff, Automatedon 01-25 Absolute Lymph 1.29 X10 3/uL Normal 0.83-4.51 [facility] Comment on above: Performed By: #### L 300.3900, L100.0100, L500.4050 #### [facility] [address] [place], [address] Absolute Neut 4.7 X10 3/uL Normal 2.0-7.7 [facility] Comment on above: Performed By: #### L 300.3900, L100.0100, L500.4050 #### [facility] [address] [place], [address] Basophils/100 WBC (Bld) 1.1 % High 0-1 [facility] Comment on above: Performed By: #### L 300.3900, L100.0100, L500.4050 #### [facility] [address] [place], [address] Eosinophils/100 WBC (Bld) 4.7 % Normal 0-5 [facility] Comment on above: Performed By: #### L 300.3900, L100.0100, L500.4050 #### [facility] [address] [place], [address] Erythrocyte distribution width (RBC) [Ratio] 18.3 % High 11.6-14.6 [facility] Comment on above: Performed By: #### L 300.3900, L100.0100, L500.4050 #### [facility] [address] [place], [address] Hematocrit (Bld) [Volume fraction] 24.6 % Low 40-54 [facility] Comment on above: Performed By: #### L 300.3900, L100.0100, L500.4050 #### [facility] [address] [place], [address] Hemoglobin (Bld) [Mass/Vol] 8.0 g/dL Low 13.0-16.5 [facility] Comment on above: Performed By: #### L 300.3900, L100.0100, L500.4050 #### [facility] [address] [place], [address] IG% 0.500 Normal 0.0-0.9 [facility] Comment on above: Result Comment: IG% - Immature Granulocytes (promyelocytes, myelocytes and metamyelocytes) > 1% indicates that a LEFT SHIFT is Present. Performed By: #### L 300.3900, L100.0100, L500.4050 #### [facility] [address] [place], [address] Lymphocytes/100 WBC (Bld) 17.7 % Low 19-41 [facility] Comment on above: Performed By: #### L 300.3900, L100.0100, L500.4050 #### [facility] [address] [place], [address] MCH (RBC) [Entitic mass] 29.3 pg Normal 27.0-32.0 [facility] Comment on above: Performed By: #### L 300.3900, L100.0100, L500.4050 #### [facility] [address] [place], [address] MCHC (RBC) [Mass/Vol] 32.5 g/dL Normal 32-36 [facility] Comment on above: Performed By: #### L 300.3900, L100.0100, L500.4050 #### [facility] [address] [place], [address] MCV (RBC) [Entitic vol] 90.1 fL Normal 80-94 [facility] Comment on above: Performed By: #### L 300.3900, L100.0100, L500.4050 #### [facility] [address] [place], [address] Monocytes/100 WBC (Bld) 11.9 % High 0-10 [facility] Comment on above: Performed By: #### L 300.3900, L100.0100, L500.4050 #### [facility] [address] [place], [address] Neutrophils/100 WBC (Bld) 64.1 % Normal 47-70 [facility] Comment on above: Performed By: #### L 300.3900, L100.0100, L500.4050 #### [facility] [address] [place], [address] Nucleated RBC (Bld) [#/Vol] 0 10*3/uL Normal 0-5 [facility] Comment on above: Performed By: #### L 300.3900, L100.0100, L500.4050 #### [facility] [address] [place], [address] Platelet mean volume (Bld) [Entitic vol] 9.2 fL Normal 6.2-12.0 [facility] Comment on above: Performed By: #### L 300.3900, L100.0100, L500.4050 #### [facility] [address] [place], [address] Platelets (Bld) [#/Vol] 294 10*3/uL Normal 150-450 [facility] Comment on above: Performed By: #### L 300.3900, L100.0100, L500.4050 #### [facility] [address] [place], [address] RBC (Bld) [#/Vol] 2.73 10*6/uL Low 4.6-6.2 [facility] Comment on above: Performed By: #### L 300.3900, L100.0100, L500.4050 #### [facility] [address] [place], [address] RDW SD 59.4 fl High 35.1-43.9 [facility] Comment on above: Performed By: #### L 300.3900, L100.0100, L500.4050 #### [facility] [address] [place], [address] WBC (Bld) [#/Vol] 7.3 10*3/uL Normal 4.4-11.0 [facility] Comment on above: Performed By: #### L 300.3900, L100.0100, L500.4050 #### [facility] [address] [place], [address] Carbon dioxide, total [Moles /volume] in Central venous bloodOrdered By: Kayley Melendrez on 02-12-2025 CO2 [Moles/Vol] 28.4 mmol/L 21.0-32.0 [facility] Chloride assayOrdered By: Carmen Melendrez on 02-12-2025 Chloride [Moles/Vol] 91 mmol/L Low 98-108 [facility] Comprehensive Metabolic Prof joe 02-12-2025 Albumin [Mass/Vol] 2.9 g/dL Low 3.5-5.0 [facility] Comment on above: Performed By: #### L 300.3900, L100.0100, L500.4050 #### [facility] [address] [place], [address] Albumin/Globulin [Mass ratio] 0.7 {ratio} Low 0.9-2.4 [facility] Comment on above: Performed By: #### L 300.3900, L100.0100, L500.4050 #### [facility] [address] [place], [address] ALK PHOS 177 U/L High 40-129 [facility] Comment on above: Performed By: #### L 300.3900, L100.0100, L500.4050 #### [facility] [address] [place], [address] ALT [Catalytic activity/Vol] 9 U/L Normal <=46 [facility] Comment on above: Performed By: #### L 300.3900, L100.0100, L500.4050 #### [facility] [address] [place], [address] AST [Catalytic activity/Vol] 34 U/L Normal <=37 [facility] Comment on above: Performed By: #### L 300.3900, L100.0100, L500.4050 #### [facility] [address] [place], [address] Bilirubin [Mass/Vol] 0.69 mg/dL Normal 0.00-1.30 [facility] Comment on above: Performed By: #### L 300.3900, L100.0100, L500.4050 #### [facility] [address] [place], [address] BUN/CRE 10.3 RATIO Normal 10-20 [facility] Comment on above: Performed By: #### L 300.3900, L100.0100, L500.4050 #### [facility] [address] [place], [address] Calcium [Mass/Vol] 9.9 mg/dL Normal 7.6-11.0 [facility] Comment on above: Performed By: #### L 300.3900, L100.0100, L500.4050 #### [facility] [address] [place], [address] Chloride [Moles/Vol] 91 mmol/L Low 98-108 [facility] Comment on above: Performed By: #### L 300.3900, L100.0100, L500.4050 #### [facility] [address] [place], [address] CO2 [Moles/Vol] 28.4 mmol/L Normal 21.0-32.0 [facility] Comment on above: Performed By: #### L 300.3900, L100.0100, L500.4050 #### [facility] [address] [place], [address] Creatinine [Mass/Vol] 4.17 mg/dL High 0.70-1.20 [facility] Comment on above: Performed By: #### L 300.3900, L100.0100, L500.4050 #### [facility] [address] [place], [address] GAP 12 Normal 5-15 [facility] Comment on above: Performed By: #### L 300.3900, L100.0100, L500.4050 #### [facility] [address] [place], [address] GFR/1.73 sq M.predicted among non-blacks MDRD (S/P/Bld) [Vol rate/Area] 16 mL/min/{1.73_m2} Low >60 [facility] Comment on above: Result Comment: mL/m in/1.73m2 CKD-EPI Creatinine Equation (2020) Performed By: #### L 300.3900, L100.0100, L500.4050 #### [facility] [address] [place], [address] Globulin (S) [Mass/Vol] 4.2 g/dL Normal 2.2-4.2 [facility] Comment on above: Performed By: #### L 300.3900, L100.0100, L500.4050 #### [facility] [address] [place], [address] Glucose [Mass/Vol] 77 mg/dL Normal 70-99 [facility] Comment on above: Performed By: #### L 300.3900, L100.0100, L500.4050 #### [facility] [address] [place], [address] Potassium [Moles/Vol] 3.2 mmol/L Low 3.3-5.1 [facility] Comment on above: Performed By: #### L 300.3900, L100.0100, L500.4050 #### [facility] [address] [place], [address] Sodium [Moles/Vol] 131 mmol/L Low 133-145 [facility] Comment on above: Performed By: #### L 300.3900, L100.0100, L500.4050 #### [facility] [address] [place], [address] T PROT 7.1 g/dL Normal 5.9-8.4 [facility] Comment on above: Performed By: #### L 300.3900, L100.0100, L500.4050 #### [facility] [address] [place], [address] Urea nitrogen [Mass/Vol] 43 mg/dL High - [facility] Comment on above: Performed By: #### L 300.3900, L100.0100, L500.4050 #### [facility] [address] [place], [address] Eosinophil percentageOrdered By: [facility] Melendrez on 02-12-2025 Eosinophils/100 WBC (Bld) 4.7 % 0-5 [facility] Erythrocyte distribution wid th ratioOrdered By: [facility] on 02-12-2025 Erythrocyte distribution width (RBC) [Ratio] 18.3 % High 11.6-14.6 [facility] Erythrocyte distribution wid th standard deviationOrdered By: [facility] aneudyselmasamson on 02-12-2025 Erythrocyte distribution width (RBC) [Ratio] 59.4 fl High 35.1-43.9 [facility] Glomerular filtration rate ( GFR) estimation/1.73 sq m using serum, plasma, or whole bOrdered By: [facility] Melendrez on 02-12-2025 GFR/1.73 sq M.predicted among non-blacks MDRD (S/P/Bld) [Vol rate/Area] 16 mL/min/{1.73_m2} Low >60 [facility] Comment on above: mL/min/1.73m2 CKD-EP I Creatinine Equation (2020) Hematocrit Auto (Bld) [Volum e fraction]Ordered By: Kayley Melendrez on 02-12-2025 Hematocrit (Bld) [Volume fraction] 24.6 % Low 40-54 [facility] Hemoglobin measurementOrdere d By: [facility] Melendrez on 02-12-2025 Hemoglobin (Bld) [Mass/Vol] 8.0 g/dL Low 13.0-16.5 [facility] Immature granulocytes/100 WB C Auto (Bld)Ordered By: Kayley Melendrez on 02-12-2025 Immature granulocytes/100 WBC (Bld) 0.500 % 0.0-0.9 [facility] Comment on above: IG% - Immature Granu locytes (promyelocytes, myelocytes and metamyelocytes) > 1% indicates that a LEFT SHIFT is Present. International normalized rat io (INR) calculationOrdered By: Kayley Melendrez on 02-12-2025 INR Coag (Bld) [Relative time] 1.5 {INR} [facility] - Chemistry and C hemistry - challengeOrdered By: Kayley Melendrez on 02-12-2025 AST [Catalytic activity/Vol] 34 U/L <38 [facility] MCV (mean corpuscular volume ) determinationOrdered By: Kayley Melendrez on 02-12-2025 MCV (RBC) [Entitic vol] 90.1 fL 80-94 [facility] Mean corpuscular hemoglobin (MCH) determinationOrdered By: Kayley Melendrez on 02-12-2025 MCH (RBC) [Entitic mass] 29.3 pg 27.0-32.0 [facility] Mean corpuscular hemoglobin concentration (MCHC) determinationOrdered By: Kayley Melendrez on 02-12-2025 MCHC (RBC) [Mass/Vol] 32.5 g/dL 32-36 [facility] Mean platelet volume determi nationOrdered By: Kayley Melendrez on 02-12-2025 Platelet mean volume (Bld) [Entitic vol] 9.2 fL 6.2-12.0 [facility] Monocyte percentageOrdered B y: Kayley Melendrez on 02-12-2025 Monocytes/100 WBC (Bld) 11.9 % High 0-10 [facility] Neutrophil percentageOrdered By: Kayley Melendrez on 02-12-2025 Neutrophils/100 WBC (Bld) 64.1 % 47-70 [facility] Nucleated red blood cell per centageOrdered By: Kayley Melendrez on 02-12-2025 Nucleated RBC/100 WBC (Bld) [Ratio] 0 % 0-5 [facility] Platelet countOrdered By: Carmen Melendrez on 02-12-2025 Platelets (Bld) [#/Vol] 294 10*3/uL 150-450 [facility] Potassium measurement (mass/ volume)Ordered By: Kayley Melendrez on 02-12-2025 Potassium (Unsp spec) [Mass/Vol] 3.2 mmol/L Low 3.3-5.1 [facility] Prothrombin Time w/INRon INR Coag (PPP) [Relative time] 1.5 {INR} Normal [facility] Comment on above: Performed By: #### L 300.3900, L100.0100, L500.4050 #### [facility] [address] [place], [address] PT Coag (PPP) [Time] 17.9 s High 11.7-14.9 [facility] Comment on above: Performed By: #### L 300.3900, L100.0100, L500.4050 #### [facility] [address] [place], [address] Prothrombin timeOrdered By: Kayley Melendrez on 02-12-2025 PT Coag (PPP) [Time] 17.9 s High 11.7-14.9 [facility] RBC Auto (Bld) [#/Vol]Ordere d By: Kayley Melendrez on 02-12-2025 RBC (Bld) [#/Vol] 2.73 10*6/uL Low 4.6-6.2 [facility] Serum creatinine measurement (mass/volume)Ordered By: Kayley Melendrez on 02-12-2025 Creatinine [Mass/Vol] 4.17 mg/dL High 0.70-1.20 [facility] Serum globulin measurementOr dered By: Kayley Melendrez on 02-12-2025 Globulin (S) [Mass/Vol] 4.2 g/dL 2.2-4.2 [facility] Serum glucose measurement (m ass/volume)Ordered By: Kayley Melendrez on 02-12-2025 Glucose [Mass/Vol] 77 mg/dL 70-99 [facility] Serum or plasma alanine mayorga otransferase (ALT) measurementOrdered By: Kayley Melendrez on 02-12-2025 ALT [Catalytic activity/Vol] 9 U/L <47 [facility] Serum or plasma albumin audrey urement (mass/volume)Ordered By: Kayley Melendrez on 02-12-2025 Albumin [Mass/Vol] 2.9 g/dL Low 3.5-5.0 [facility] Serum or plasma albumin/glob ulin mass ratioOrdered By: Kayley Melendrez on 02-12-2025 Albumin/Globulin [Mass ratio] 0.7 {ratio} Low 0.9-2.4 [facility] Serum or plasma alkaline jacob sphatase measurementOrdered By: Kayley Melendrez on 02-12-2025 ALP [Catalytic activity/Vol] 177 U/L High 40-129 [facility] Serum or plasma calcium audrey urement (mass/volume)Ordered By: Kayley Melendrez on 02-12-2025 Calcium [Mass/Vol] 9.9 mg/dL 7.6-11.0 [facility] Serum or plasma urea nitroge n measurement (mass/volume)Ordered By: Kayley Melendrez on 02-12-2025 Urea nitrogen [Mass/Vol] 43 mg/dL High 4-19 [facility] Sodium levelOrdered By: Omega Melendrez on 02-12-2025 Sodium [Moles/Vol] 131 mmol/L Low 133-145 [facility] Total proteinOrdered By: Lexis Melendrez on 02-12-2025 Protein [Mass/Vol] 7.1 g/dL 5.9-8.4 [facility] White blood cell (WBC) count Ordered By: Kayley Melendrez on 02-12-2025 WBC (Bld) [#/Vol] 7.3 10*3/uL 4.4-11.0 [facility] 36on 02-09-2025 36 [facility] International normalized rat io (INR) measurement by fingerstickOrdered By: Kayley Melendrez on 02-08-2025 INR Coag (BldC) [Relative time] 2.3 [facility] Comment on above: Critical Value > 4.0 Protime w/INR Fingerstickon 02-08-2025 INR Coag (PPP) [Relative time] 2.3 {INR} Normal [facility] Comment on above: Result Comment: Crit ical Value > 4.0 Performed By: #### L 500.4050, L300.3900, L100.0100 #### [facility] [address] [place], [address] Protime Coagsen 24.9 SEC High 11.7-14.9 [facility] Comment on above: Performed By: #### L 500.4050, L300.3900, L100.0100 #### [facility] [address] [place], [address] Whole blood prothrombin time Ordered By: Kayley Melendrez on 02-08-2025 PT Coag (Bld) [Time] 24.9 s High 11.7-14.9 [facility] International normalized rat io (INR) calculationOrdered By: Jayesh Stubbs on 02-07-2025 INR Coag (Bld) [Relative time] 1.8 {INR} [facility] Prothrombin Time w/INRon INR Coag (PPP) [Relative time] 1.8 {INR} Normal [facility] Comment on above: Order Comment: 413-2 Performed By: #### L 300.3900 #### [facility] [address] [place], [address] PT Coag (PPP) [Time] 21.1 s High 11.7-14.9 [facility] Comment on above: Order Comment: 413-2 Performed By: #### L 300.3900 #### [facility] [address] [place], [address] Prothrombin timeOrdered By: Jayesh Stubbs on 02-07-2025 PT Coag (PPP) [Time] 21.1 s High 11.7-14.9 [facility] Absolute lymphocyte countOrd ered By: Kayley Melendrez on 02-05-2025 Lymphocytes Auto (Unsp spec) [#/Vol] 1.77 10*3/uL 0.83-4.51 [facility] Absolute neutrophil countOrd ered By: Kayley Melendrez on 02-05-2025 Neutrophils (Bld) [#/Vol] 4.6 10*3/uL 2.0-7.7 [facility] Anion gap in Serum or Plasma Ordered By: Kayley Melendrez on 02-05-2025 Anion gap [Moles/Vol] 18 mmol/L High 5-15 [facility] Automated lymphocyte count a s percentage of total leukocytesOrdered By: Kayley Melendrez on 02-05-2025 Lymphocytes/100 WBC Auto (Unsp spec) 22.0 % 19-41 [facility] BUN/creatinine ratioOrdered By: Kayley Melendrez on 02-05-2025 Urea nitrogen/Creatinine [Mass ratio] 4.1 mg/mg Low 10-20 [facility] Basophil percentageOrdered B y: Kayley Melendrez on 02-05-2025 Basophils/100 WBC (Bld) 1.0 % 0-1 [facility] Bilirubin, totalOrdered By: Kayley Melendrez on 02-05-2025 Bilirubin [Mass/Vol] 0.81 mg/dL 0.00-1.30 [facility] CBC W/Diff, Automatedon 01-25 Absolute Lymph 1.77 X10 3/uL Normal 0.83-4.51 [facility] Comment on above: Order Comment: 413-2 Performed By: #### L 100.0100, L500.4050 #### [facility] [address] [place], [address] Absolute Neut 4.6 X10 3/uL Normal 2.0-7.7 [facility] Comment on above: Order Comment: 413-2 Performed By: #### L 100.0100, L500.4050 #### [facility] [address] [place], [address] Basophils/100 WBC (Bld) 1.0 % Normal 0-1 [facility] Comment on above: Order Comment: 413-2 Performed By: #### L 100.0100, L500.4050 #### [facility] [address] [place], [address] Eosinophils/100 WBC (Bld) 4.1 % Normal 0-5 [facility] Comment on above: Order Comment: 413-2 Performed By: #### L 100.0100, L500.4050 #### [facility] [address] [place], [address] Erythrocyte distribution width (RBC) [Ratio] 18.8 % High 11.6-14.6 [facility] Comment on above: Order Comment: 413-2 Performed By: #### L 100.0100, L500.4050 #### [facility] [address] [place], [address] Hematocrit (Bld) [Volume fraction] 28.1 % Low 40-54 [facility] Comment on above: Order Comment: 413-2 Performed By: #### L 100.0100, L500.4050 #### [facility] [address] [place], [address] Hemoglobin (Bld) [Mass/Vol] 8.8 g/dL Low 13.0-16.5 [facility] Comment on above: Order Comment: 413-2 Performed By: #### L 100.0100, L500.4050 #### [facility] [address] [place], [address] IG% 0.600 Normal 0.0-0.9 [facility] Comment on above: Order Comment: 413-2 Result Comment: IG% - Immature Granulocytes (promyelocytes, myelocytes and metamyelocytes) > 1% indicates that a LEFT SHIFT is Present. Performed By: #### L 100.0100, L500.4050 #### [facility] [address] [place], [address] Lymphocytes/100 WBC (Bld) 22.0 % Normal 19-41 [facility] Comment on above: Order Comment: 413-2 Performed By: #### L 100.0100, L500.4050 #### [facility] [address] [place], [address] MCH (RBC) [Entitic mass] 29.0 pg Normal 27.0-32.0 [facility] Comment on above: Order Comment: 413-2 Performed By: #### L 100.0100, L500.4050 #### [facility] [address] [place], [address] MCHC (RBC) [Mass/Vol] 31.3 g/dL Low 32-36 [facility] Comment on above: Order Comment: 413-2 Performed By: #### L 100.0100, L500.4050 #### [facility] [address] [place], [address] MCV (RBC) [Entitic vol] 92.7 fL Normal 80-94 [facility] Comment on above: Order Comment: 413-2 Performed By: #### L 100.0100, L500.4050 #### [facility] [address] [place], [address] Monocytes/100 WBC (Bld) 15.6 % High 0-10 [facility] Comment on above: Order Comment: 413-2 Performed By: #### L 100.0100, L500.4050 #### [facility] [address] [place], [address] Neutrophils/100 WBC (Bld) 56.7 % Normal 47-70 [facility] Comment on above: Order Comment: 413-2 Performed By: #### L 100.0100, L500.4050 #### [facility] [address] [place], [address] Nucleated RBC (Bld) [#/Vol] 0 10*3/uL Normal 0-5 [facility] Comment on above: Order Comment: 413-2 Performed By: #### L 100.0100, L500.4050 #### [facility] [address] [place], [address] Platelet mean volume (Bld) [Entitic vol] 9.2 fL Normal 6.2-12.0 [facility] Comment on above: Order Comment: 413-2 Performed By: #### L 100.0100, L500.4050 #### [facility] [address] [place], [address] Platelets (Bld) [#/Vol] 358 10*3/uL Normal 150-450 [facility] Comment on above: Order Comment: 413-2 Performed By: #### L 100.0100, L500.4050 #### [facility] [address] [place], [address] RBC (Bld) [#/Vol] 3.03 10*6/uL Low 4.6-6.2 [facility] Comment on above: Order Comment: 413-2 Performed By: #### L 100.0100, L500.4050 #### [facility] [address] [place], [address] RDW SD 63.1 fl High 35.1-43.9 [facility] Comment on above: Order Comment: 413-2 Performed By: #### L 100.0100, L500.4050 #### [facility] [address] [place], [address] WBC (Bld) [#/Vol] 8.1 10*3/uL Normal 4.4-11.0 [facility] Comment on above: Order Comment: 413-2 Performed By: #### L 100.0100, L500.4050 #### [facility] [address] [place], [address] Carbon dioxide, total [Moles /volume] in Central venous bloodOrdered By: Kayley Melendrez on 02-05-2025 CO2 [Moles/Vol] 25.9 mmol/L 21.0-32.0 [facility] Chloride assayOrdered By: Carmen Melendrez on 02-05-2025 Chloride [Moles/Vol] 93 mmol/L Low 98-108 [facility] Comprehensive Metabolic Prof ilon 02-05-2025 Albumin [Mass/Vol] 3.1 g/dL Low 3.5-5.0 [facility] Comment on above: Order Comment: 413-2 Performed By: #### L 100.0100, L500.4050 #### [facility] [address] [place], [address] Albumin/Globulin [Mass ratio] 0.7 {ratio} Low 0.9-2.4 [facility] Comment on above: Order Comment: 413-2 Performed By: #### L 100.0100, L500.4050 #### [facility] [address] [place], [address] ALK PHOS 260 U/L High 40-129 [facility] Comment on above: Order Comment: 413-2 Performed By: #### L 100.0100, L500.4050 #### [facility] [address] [place], [address] ALT [Catalytic activity/Vol] 11 U/L Normal <=46 [facility] Comment on above: Order Comment: 413-2 Performed By: #### L 100.0100, L500.4050 #### [facility] [address] [place], [address] AST [Catalytic activity/Vol] 42 U/L High <=37 [facility] Comment on above: Order Comment: 413-2 Performed By: #### L 100.0100, L500.4050 #### [facility] [address] [place], [address] Bilirubin [Mass/Vol] 0.81 mg/dL Normal 0.00-1.30 [facility] Comment on above: Order Comment: 413-2 Performed By: #### L 100.0100, L500.4050 #### [facility] [address] [place], [address] BUN/CRE 4.1 RATIO Low 10-20 [facility] Comment on above: Order Comment: 413-2 Performed By: #### L 100.0100, L500.4050 #### [facility] [address] [place], [address] Calcium [Mass/Vol] 10.0 mg/dL Normal 7.6-11.0 [facility] Comment on above: Order Comment: 413-2 Performed By: #### L 100.0100, L500.4050 #### [facility] [address] [place], [address] Chloride [Moles/Vol] 93 mmol/L Low 98-108 [facility] Comment on above: Order Comment: 413-2 Performed By: #### L 100.0100, L500.4050 #### [facility] [address] [place], [address] CO2 [Moles/Vol] 25.9 mmol/L Normal 21.0-32.0 [facility] Comment on above: Order Comment: 413-2 Performed By: #### L 100.0100, L500.4050 #### [facility] [address] [place], [address] Creatinine [Mass/Vol] 5.27 mg/dL High 0.70-1.20 [facility] Comment on above: Order Comment: 413-2 Performed By: #### L 100.0100, L500.4050 #### [facility] [address] [place], [address] GAP 18 High 5-15 [facility] Comment on above: Order Comment: 413-2 Performed By: #### L 100.0100, L500.4050 #### [facility] [address] [place], [address] GFR/1.73 sq M.predicted among non-blacks MDRD (S/P/Bld) [Vol rate/Area] 12 mL/min/{1.73_m2} Low >60 [facility] Comment on above: Order Comment: 413-2 Result Comment: mL/m in/1.73m2 CKD-EPI Creatinine Equation (2020) Performed By: #### L 100.0100, L500.4050 #### [facility] [address] [place], [address] Globulin (S) [Mass/Vol] 4.3 g/dL High 2.2-4.2 [facility] Comment on above: Order Comment: 413-2 Performed By: #### L 100.0100, L500.4050 #### [facility] [address] [place], [address] Glucose [Mass/Vol] 65 mg/dL Low 70-99 [facility] Comment on above: Order Comment: 413-2 Performed By: #### L 100.0100, L500.4050 #### [facility] [address] [place], [address] Potassium [Moles/Vol] 4.5 mmol/L Normal 3.3-5.1 [facility] Comment on above: Order Comment: 413-2 Performed By: #### L 100.0100, L500.4050 #### [facility] [address] [place], [address] Sodium [Moles/Vol] 136 mmol/L Normal 133-145 [facility] Comment on above: Order Comment: 413-2 Performed By: #### L 100.0100, L500.4050 #### [facility] [address] [place], [address] T PROT 7.4 g/dL Normal 5.9-8.4 [facility] Comment on above: Order Comment: 413-2 Performed By: #### L 100.0100, L500.4050 #### [facility] [address] [place], [address] Urea nitrogen [Mass/Vol] 22 mg/dL High 4-19 [facility] Comment on above: Order Comment: 413-2 Performed By: #### L 100.0100, L500.4050 #### [facility] [address] [place], [address] Eosinophil percentageOrdered By: Kayley Melendrez on 02-05-2025 Eosinophils/100 WBC (Bld) 4.1 % 0-5 [facility] Erythrocyte distribution wid th ratioOrdered By: [facility] stephen on 02-05-2025 Erythrocyte distribution width (RBC) [Ratio] 18.8 % High 11.6-14.6 [facility] Erythrocyte distribution wid th standard deviationOrdered By: Kayley Melendrez on 02-05-2025 Erythrocyte distribution width (RBC) [Ratio] 63.1 fl High 35.1-43.9 [facility] Glomerular filtration rate ( GFR) estimation/1.73 sq m using serum, plasma, or whole bOrdered By: Kayley Melendrez on 02-05-2025 GFR/1.73 sq M.predicted among non-blacks MDRD (S/P/Bld) [Vol rate/Area] 12 mL/min/{1.73_m2} Low >60 [facility] Comment on above: mL/min/1.73m2 CKD-EP I Creatinine Equation (2020) Hematocrit Auto (Bld) [Volum e fraction]Ordered By: Kayley Melendrez on 02-05-2025 Hematocrit (Bld) [Volume fraction] 28.1 % Low 40-54 [facility] Hemoglobin measurementOrdere d By: Kayley Melendrez on 02-05-2025 Hemoglobin (Bld) [Mass/Vol] 8.8 g/dL Low 13.0-16.5 [facility] Immature granulocytes/100 WB C Auto (Bld)Ordered By: Kayley Melendrez on 02-05-2025 Immature granulocytes/100 WBC (Bld) 0.600 % 0.0-0.9 [facility] Comment on above: IG% - Immature Granu locytes (promyelocytes, myelocytes and metamyelocytes) > 1% indicates that a LEFT SHIFT is Present. Laboratory - Chemistry and C hemistry - challengeOrdered By: Kayley Melendrez on 02-05-2025 AST [Catalytic activity/Vol] 42 U/L High <38 [facility] MCV (mean corpuscular volume ) determinationOrdered By: Kayley Melendrez on 02-05-2025 MCV (RBC) [Entitic vol] 92.7 fL 80-94 [facility] [facility] Mean corpuscular hemoglobin (MCH) determinationOrdered By: Kayley Melendrez on 02-05-2025 MCH (RBC) [Entitic mass] 29.0 pg 27.0-32.0 [facility] Mean corpuscular hemoglobin concentration (MCHC) determinationOrdered By: Kayley Melendrez on 02-05-2025 MCHC (RBC) [Mass/Vol] 31.3 g/dL Low 32-36 [facility] Mean platelet volume determi nationOrdered By: Kayley Melendrez on 02-05-2025 Platelet mean volume (Bld) [Entitic vol] 9.2 fL 6.2-12.0 [facility] Monocyte percentageOrdered B y: Kayley Melendrez on 02-05-2025 Monocytes/100 WBC (Bld) 15.6 % High 0-10 [facility] Neutrophil percentageOrdered By: Kayley Melendrez on 02-05-2025 Neutrophils/100 WBC (Bld) 56.7 % 47-70 [facility] Nucleated red blood cell per centageOrdered By: Kayley Melendrez on 02-05-2025 Nucleated RBC/100 WBC (Bld) [Ratio] 0 % 0-5 [facility] Platelet countOrdered By: Carmen Melendrez on 02-05-2025 Platelets (Bld) [#/Vol] 358 10*3/uL 150-450 [facility] Potassium measurement (mass/ volume)Ordered By: Kayley Melendrez on 02-05-2025 Potassium (Unsp spec) [Mass/Vol] 4.5 mmol/L 3.3-5.1 [facility] RBC Auto (Bld) [#/Vol]Ordere d By: Kayley Melendrez on 02-05-2025 RBC (Bld) [#/Vol] 3.03 10*6/uL Low 4.6-6.2 [facility] Serum creatinine measurement (mass/volume)Ordered By: Kayley Melendrez on 02-05-2025 Creatinine [Mass/Vol] 5.27 mg/dL High 0.70-1.20 [facility] Serum globulin measurementOr dered By: Kayley Melendrez on 02-05-2025 Globulin (S) [Mass/Vol] 4.3 g/dL High 2.2-4.2 [facility] Serum glucose measurement (m ass/volume)Ordered By: Kayley Melendrez on 02-05-2025 Glucose [Mass/Vol] 65 mg/dL Low 70-99 [facility] Serum or plasma alanine mayorga otransferase (ALT) measurementOrdered By: Kayley Melendrez on 02-05-2025 ALT [Catalytic activity/Vol] 11 U/L <47 [facility] Serum or plasma albumin audrey urement (mass/volume)Ordered By: Kayley Melendrez on 02-05-2025 Albumin [Mass/Vol] 3.1 g/dL Low 3.5-5.0 [facility] Serum or plasma albumin/glob ulin mass ratioOrdered By: Kayley Melendrez on 02-05-2025 Albumin/Globulin [Mass ratio] 0.7 {ratio} Low 0.9-2.4 [facility] Serum or plasma alkaline jacob sphatase measurementOrdered By: Navarrojacob Melendrez on 02-05-2025 ALP [Catalytic activity/Vol] 260 U/L High 40-129 [facility] Serum or plasma calcium audrey urement (mass/volume)Ordered By: [facility] Centerannemariejacob stephen on 02-05-2025 Calcium [Mass/Vol] 10.0 mg/dL 7.6-11.0 [facility] Serum or plasma urea nitroge n measurement (mass/volume)Ordered By: [facility] Centeramparo stephen on 02-05-2025 Urea nitrogen [Mass/Vol] 22 mg/dL High 4-19 [facility] Sodium levelOrdered By: [facility] Centermatt bernadinejacob [facility] on 02-05-2025 Sodium [Moles/Vol] 136 mmol/L 133-145 [facility] Total proteinOrdered By: Lexis amparo Goodenselmasamson on 02-05-2025 Protein [Mass/Vol] 7.4 g/dL 5.9-8.4 [facility] White blood cell (WBC) count Ordered By: [facility] Centeramparo [facility] on 02-05-2025 WBC (Bld) [#/Vol] 8.1 10*3/uL 4.4-11.0 [facility] 36on 02-02-2025 36 [facility] 36 Patient discharged to [facility] [phone], spoke to nurse Delilah to verify orders, follow up appointment and tunneled line removal. [facility] Progress Noteon 02-02-2025 Progress Note Normal [facility] Progress Note Pt discharged to [facility] on 02/01/25. Updated tracker with hospital doses. Warfarin dosing instructions: 0.5 mg per day. New interacting meds: N/a Next SAILAJA appt: post SNF [facility] Progress Note Patient was readmitted on 02/20 and discharged back to [facility] on 03/05. [facility] Progress Note Patient is still at [facility] ([phone]). I left a message for ELIA Anderson, regarding discharge plans. [facility] [id number] 02-01-2025 [id number] created in HENS per TCC request. Facility notified via Cloudacc. Normal [facility] [id number] Normal [facility] CBC (HEMOGRAM)on 02-01-2025 Erythrocyte distribution width (RBC) [Ratio] 18.8 % High 11.5-15.0 [facility] Comment on above: Performed By: #### L [id number] ####Circuit Court Magistrate: DOMENICA JARA ([id number])[address] Hematocrit (Bld) [Volume fraction] 28.3 % Low 40.0-52.0 [facility] Comment on above: Performed By: #### L [id number] ####Circuit Court Magistrate: DOMENICA JARA ([id number])[address] Hemoglobin (Bld) [Mass/Vol] 8.9 g/dL Low 13.0-18.0 [facility] Comment on above: Performed By: #### L [id number] ####Circuit Court Magistrate: DOMENICA JARA ([id number])[address] MCH (RBC) [Entitic mass] 28.2 pg Normal 26.0-34.0 [facility] Comment on above: Performed By: #### L [id number] ####Circuit Court Magistrate: DOMENICA JARA ([phone])[address] MCHC 31.4 % Normal 30.5-36.0 [facility] Comment on above: Performed By: #### L [id number] ####Circuit Court Magistrate: DOMENICA JARA ([id number])[address] MCV (RBC) [Entitic vol] 89.6 fL Normal 77.0-99.0 [facility] Comment on above: Performed By: #### L [id number] ####Circuit Court Magistrate: DOMENICA JARA ([id number])[facility] [place] [address] Platelet mean volume (Bld) [Entitic vol] 9.0 fL Normal 9.0-12.7 [facility] Comment on above: Performed By: #### L [id number] ####Circuit Court Magistrate: DOMENICA JARA ([id number])[facility])[address] [place] [address] Platelets (Bld) [#/Vol] 282 10*3/uL Normal 140-440 [facility] Comment on above: Performed By: #### L [id number] ####Circuit Court Magistrate: DOMENICA JARA ([id number])[facility])[address] [place] [address] RBC (Bld) [#/Vol] 3.16 10*6/uL Low 4.40-5.90 [facility] Comment on above: Performed By: #### L [id number] ####Circuit Court Magistrate: DOMENICA JARA ([id number])[facility])[address] [place] [address] WBC (Bld) [#/Vol] 7.9 10*3/uL Normal 3.6-10.7 [facility] Comment on above: Performed By: #### L [id number] ####Circuit Court Magistrate: DOMENICA JARA ([id number])[facility])[address] [place] [address] CBC panel Auto (Bld)on 02-01 Erythrocyte distribution width (RBC) [Ratio] 18.8 % High 11.5 - 15.0 % [facility] Hematocrit (Bld) [Volume fraction] 28.3 % Low 40.0 - 52.0 % [facility] Hemoglobin (Bld) [Mass/Vol] 8.9 g/dL Low 13.0 - 18.0 g/dL [facility] Interpretation and review of laboratory results Abnormal [facility] MCH (RBC) [Entitic mass] 28.2 pg 26. 0 - 34.0 pg [facility] MCHC (RBC) [Mass/Vol] 31.4 % 30.5 - 36.0 % [facility] MCV (RBC) [Entitic vol] 89.6 fL 77.0 - 99.0 fL [facility] Platelet mean volume (Bld) [Entitic vol] 9 fL 9.0 - 12.7 fL [facility] Platelets (Bld) [#/Vol] 282 10*3/uL 140 - 440 10*3/uL [facility] RBC (Bld) [#/Vol] 3.16 10*6/uL Low 4.40 - 5.9 0 10*6/uL [facility] WBC (Bld) [#/Vol] 7.9 10*3/uL 3.6 - 10.7 10*3/uL [facility] COMPREHENSIVE METABOLIC PANE Victor M 02-01-2025 Albumin [Mass/Vol] 2.1 g/dL Low 3.5-5.0 [facility] Comment on above: Performed By: #### Tameka AB103, [id number], LAB17 ####Circuit Court Magistrate: DOMENICA JARA ([id number])[facility])[address] [place] [address] ALP [Catalytic activity/Vol] 226 U/L High 40-150 [facility] Comment on above: Performed By: #### Tameka AB103, [id number], LAB17 ####Circuit Court Magistrate: DOMENICA JARA ([id number])[facility])[address] [place] [address] ALT [Catalytic activity/Vol] 10 U/L Normal <40 [facility] Comment on above: Performed By: #### Tameka AB103, [id number], LAB17 ####Circuit Court Magistrate: DOMENICA JARA ([id number])[facility])[address] [place] [address] Anion gap [Moles/Vol] 11 mmol/L Normal 3-13 [facility] Comment on above: Performed By: #### L AB103, [id number], LAB17 ####Circuit Court Magistrate: DOMENICA JARA ([id number])[facility])[address] [place] [address] AST [Catalytic activity/Vol] 32 U/L Normal <34 [facility] Comment on above: Performed By: #### Tameka AB103, [id number], LAB17 ####Circuit Court Magistrate: DMOENICA JARA ([id number])[facility] [place] [address] Bilirubin [Mass/Vol] 0.9 mg/dL Normal <1.2 [facility] Comment on above: Performed By: #### Tameka ABRadha, [id number], LAB17 ####Circuit Court Magistrate: DOMENICA JARA ([id number])[facility] [place] [address] Calcium [Mass/Vol] 9.7 mg/dL Normal 8.4-10.2 [facility] Comment on above: Performed By: #### Tameka AB103, [id number], LAB17 ####Circuit Court Magistrate: DOMENICA JARA ([id number])[facility] [place] [address] [place] Chloride [Moles/Vol] 99 mmol/L Normal 98-107 [facility] Comment on above: Performed By: #### Tameka ABRadha, [id number], LAB17 ####Circuit Court Magistrate: DOMENICA JARA ([id number])[facility])[address] [place] [address] CO2 [Moles/Vol] 26 mmol/L Normal 22-29 [facility] Comment on above: Performed By: #### Tameka ABRadha, [id number], LAB17 ####Circuit Court Magistrate: DOMENICA JARA ([id number])[facility])[address] [place] [address] [place] Creatinine [Mass/Vol] 2.39 mg/dL High 0.72-1.25 [facility] Comment on above: Performed By: #### Tameka AB103, [id number], LAB17 ####Circuit Court Magistrate: DOMENICA JARA ([id number])[facility])[address] [place] [address] GLOMERULAR FILTRATION RATE ML/MIN/1.73 SQ M.PREDICTED 30.5 mL/min/1.73m*2 Low >60.0 [facility] Comment on above: Result Comment: Calc ulation based on the Chronic Kidney Disease Epidemiology Collaboration (CKD-EPI) equation refit without adjustment for race Performed By: #### L AB103, [id number], LAB17 ####Circuit Court Magistrate: DOMENICA JARA ([id number])[facility])[address] [place] [address] Glucose [Mass/Vol] 87 mg/dL Normal 74-100 [facility] Comment on above: Performed By: #### L AB103, [id number], LAB17 ####Circuit Court Magistrate: DOMENICA JARA ([id number])[facility])[address] [place] [address] [place] Potassium [Moles/Vol] 3.7 mmol/L Normal 3.5-5.1 [facility] Comment on above: Result Comment: [facility] potassium values may be up to 0.5 mmol/L lower than serum values. Performed By: #### Tameka AB103, SML104, LAB17 ####Circuit Court Magistrate: DOMENICA JARA ([id number])[facility])[address] [place] [address] [place] Protein [Mass/Vol] 7.4 g/dL Normal 6.4-8.3 [facility] Comment on above: Performed By: #### Tameka AB103, [id number], LAB17 ####Circuit Court Magistrate: DOMENICA JARA ([id number])[facility])[address] [place] [address] [place] Sodium [Moles/Vol] 136 mmol/L Normal 136-145 [facility] Comment on above: Performed By: #### L AB103, [id number], LAB17 ####Circuit Court Magistrate: DOMENICA JARA ([id number])[facility])[address] [place] [address] [place] Urea nitrogen [Mass/Vol] 7 mg/dL Low 9-23 [facility] Comment on above: Performed By: #### L AB103, [id number], LAB17 ####Circuit Court Magistrate: DOMENICA JARA ([id number])[facility] [place] [address] Comprehensive metabolic 1998 panelon 02-01-2025 Albumin [Mass/Vol] 2.1 g/dL Low 3.5 - 5.0 g/dL [facility] ALP [Catalytic activity/Vol] 226 U/L High 40 - 150 U/L [facility] ALT [Catalytic activity/Vol] 10 U/L NINF - 40 U/L [facility] Anion gap [Moles/Vol] 11 mmol/L 3 - 13 mmol/L [facility] AST [Catalytic activity/Vol] 32 U/L NINF - 34 U/L [facility] Bilirubin [Mass/Vol] 0.9 mg/dL NINF - 1.2 mg/dL [facility] Calcium [Mass/Vol] 9.7 mg/dL 8.4 - 10. 2 mg/dL [facility] Chloride [Moles/Vol] 99 mmol/L 98 - 10 7 mmol/L [facility] CO2 [Moles/Vol] 26 mmol/L 22 - 29 mmol/L [facility] Creatinine [Mass/Vol] 2.39 mg/dL High 0.72 - 1.25 mg/dL [facility] GFR/1.73 sq M.predicted (S/P/Bld) [Vol rate/Area] 30.5 mL/min Low - PINF [facility] Glucose [Mass/Vol] 87 mg/dL 74 - 100 mg/dL [facility] Interpretation and review of laboratory results Abnormal [facility] Potassium [Moles/Vol] 3.7 mmol/L 3.5 - 5.1 mmol/L [facility] Protein [Mass/Vol] 7.4 g/dL 6.4 - 8.3 g/dL [facility] Sodium [Moles/Vol] 136 mmol/L 136 - 145 mmol/L [facility] Urea nitrogen [Mass/Vol] 7 mg/dL Low 9 - 23 mg/d L [facility] HEMOGLOBIN AND HEMATOCRIT, B LOODon 02-01-2025 Hematocrit (Bld) [Volume fraction] 28.8 % Low 40.0-52.0 [facility] Comment on above: Performed By: #### L AB753 ####Circuit Court Magistrate: DOMENICA JARA ([id number])[facility] [place] [address] Hemoglobin (Bld) [Mass/Vol] 8.9 g/dL Low 13.0-18.0 [facility] Comment on above: Performed By: #### L AB753 ####Circuit Court Magistrate: DOMENICA JARA ([id number])[facility] ([facility])[address] [place] [address] Hemoglobin (Bld) [Mass/Vol]O rdered By: Rosa Juares on 02-01-2025 Hematocrit (Bld) [Volume fraction] 28.8 % Low 40.0 - 52.0 % [facility] Interpretation and review of laboratory results Abnormal [facility] Laboratory - Chemistry and C hemistry - challengeon 02-01-2025 Magnesium [Mass/Vol] 1.9 mg/dL 1.6 - 2 .6 mg/dL [facility] - Coagulationon 0 02-01-2025 PT Coag (Bld) [Time] 20.3 s High 9.0 - 12.0 s [facility] - Hematology and Cell countsOrdered By: Rosa Juares on 02-01-2025 Hemoglobin (Bld) [Mass/Vol] 8.9 g/dL Low 13.0 - 18.0 g/dL [facility] MAGNESIUMon 02-01-2025 Magnesium [Mass/Vol] 1.9 mg/dL Normal 1.6-2.6 [facility] Comment on above: Result Comment: ARPAN R COMMENTS:Higher values can be expected in females during menses. Performed By: #### L AB103, [id number], LAB17 ####Circuit Court Magistrate: DOMENICA JARA ([id number])[facility])[address] [place] [address] Magnesium [Mass/Vol]on 02-01 [facility] No Panel Informationon 02-01 Interpretation and review of laboratory results Normal [facility] Nursing Noteon 02-01-2025 Nursing Note Transport here to take patient to [facility]. Wound Vac tubing clamped and disconnected from wound vac. Facility will determine if tubing is compatible with their wound vacs. Normal [facility] PHOSPHORUSon 02-01-2025 Phosphate [Mass/Vol] 3.4 mg/dL Normal 2.3-4.7 [facility] Comment on above: Performed By: #### L AB103, [id number], LAB17 ####Circuit Court Magistrate: DOMENICA JARA ([id number])[facility])[address] [place] [address] PROTHROMBIN TIMEon INR Coag (PPP) [Relative time] 2.0 {INR} High 0.9-1.1 [facility] Comment on above: Result Comment: Vaughn [...] Myocardial Infarction Performed By: #### Tameka AB320 ####Circuit Court Magistrate: DOMENICA JARA ([id number])[facility])[address] [place] [address] PT Coag (PPP) [Time] 20.3 s High 9.0-12.0 [facility] Comment on above: Performed By: #### L AB320 ####Circuit Court Magistrate: DOMENICA JARA ([id number])[facility])[address] [place] [address] PT Coag (Bld) [Time]on 02-01 INR Coag (PPP) [Relative time] 2 {INR} High 0.9 - 1.1 [facility] Interpretation and review of laboratory results Abnormal [facility] Phosphate [Moles/Vol]on Phosphate [Mass/Vol] 3.4 mg/dL 2.3 - 4 .7 mg/dL [facility] Progress Noteon 02-01-2025 Progress Note Normal [facility] Progress Note Normal [facility] Progress Note Normal [facility] Progress Note Normal [facility] Progress Note Normal [facility] Progress Note Normal [facility] 30on 01-31-2025 30 Normal [facility] 30 Normal [facility] [id number] 01-31-2025 [id number] Updates placed to [facility] via Careport per TCC request. Await review and response regarding ability to accept. TCC notified. Electronically signed by NELSON Rodrigues Normal [facility] CBC (HEMOGRAM)on 01-31-2025 Erythrocyte distribution width (RBC) [Ratio] 19.2 % High 11.5-15.0 [facility] Comment on above: Performed By: #### L [id number] ####Circuit Court Magistrate: DOMENICA JARA ([id number])[facility])[address] [place] [address] Hematocrit (Bld) [Volume fraction] 27.9 % Low 40.0-52.0 [facility] Comment on above: Performed By: #### L AB294 ####Circuit Court Magistrate: DOMENICA JARA ([id number])[address] Hemoglobin (Bld) [Mass/Vol] 8.8 g/dL Low 13.0-18.0 [facility] Comment on above: Performed By: #### L AB294 ####Circuit Court Magistrate: DOMENICA JARA ([id number])[facility])[address] [place] [address] MCH (RBC) [Entitic mass] 28.4 pg Normal 26.0-34.0 [facility] Comment on above: Performed By: #### L AB294 ####Circuit Court Magistrate: DOMENICA JARA ([id number])[address] MCHC 31.5 % Normal 30.5-36.0 [facility] Comment on above: Performed By: #### L AB294 ####Circuit Court Magistrate: DOMENICA [id number])[address] [place] [address] [place] MCV (RBC) [Entitic vol] 90.0 fL Normal 77.0-99.0 [facility] Comment on above: Performed By: #### L AB294 ####Circuit Court Magistrate: DOMENICA JARA ([id number])[facility])[address] [place] [address] Platelet mean volume (Bld) [Entitic vol] 9.0 fL Normal 9.0-12.7 [facility] Comment on above: Performed By: #### L AB294 ####Circuit Court Magistrate: DOMENICA JARA ([id number])[facility])[address] [place] [address] Platelets (Bld) [#/Vol] 278 10*3/uL Normal 140-440 [facility] Comment on above: Performed By: #### L [id number] ####Circuit Court Magistrate: DOMENICA JARA ([id number])[facility])[address] [place] [address] RBC (Bld) [#/Vol] 3.10 10*6/uL Low 4.40-5.90 [facility] Comment on above: Performed By: #### L AB294 ####Circuit Court Magistrate: DOMENICA JARA ([id number])[facility])[address] [place] [address] WBC (Bld) [#/Vol] 9.3 10*3/uL Normal 3.6-10.7 [facility] Comment on above: Performed By: #### L AB294 ####Circuit Court Magistrate: DOMENICA JARA ([id number])[facility])[address] [place] [address] CBC panel Auto (Bld)on 01-31 Erythrocyte distribution width (RBC) [Ratio] 19.2 % High 11.5 - 15.0 % [facility] Hematocrit (Bld) [Volume fraction] 27.9 % Low 40.0 - 52.0 % [facility] Hemoglobin (Bld) [Mass/Vol] 8.8 g/dL Low 13.0 - 18.0 g/dL [facility] Interpretation and review of laboratory results Abnormal [facility] MCH (RBC) [Entitic mass] 28.4 pg 26. 0 - 34.0 pg [facility] MCHC (RBC) [Mass/Vol] 31.5 % 30.5 - 36.0 % [facility] MCV (RBC) [Entitic vol] 90 fL 77.0 - 99.0 fL [facility] Platelet mean volume (Bld) [Entitic vol] 9 fL 9.0 - 12.7 fL [facility] Platelets (Bld) [#/Vol] 278 10*3/uL 140 - 440 10*3/uL [facility] RBC (Bld) [#/Vol] 3.1 10*6/uL Low 4.40 - 5.9 0 10*6/uL [facility] WBC (Bld) [#/Vol] 9.3 10*3/uL 3.6 - 10.7 10*3/uL [facility] COMPREHENSIVE METABOLIC PANE Victor M 01-31-2025 Albumin [Mass/Vol] 2.1 g/dL Low 3.5-5.0 [facility] Comment on above: Performed By: #### L AB113, LAB17, [id number] ####Circuit Court Magistrate: DOMENICA JARA ([id number])[address] ALP [Catalytic activity/Vol] 218 U/L High 40-150 [facility] Comment on above: Performed By: #### Tameka ABAruna, LAB17, [id number] ####Circuit Court Magistrate: DOMENICA JARA ([id number])[facility])[address] [place] [address] ALT [Catalytic activity/Vol] 11 U/L Normal <40 [facility] Comment on above: Performed By: #### Tameka ABAruna, LAB17, [id number] ####Circuit Court Magistrate: DOMENICA JARA ([id number])[facility])[address] [place] [address] Anion gap [Moles/Vol] 12 mmol/L Normal 3-13 [facility] Comment on above: Performed By: #### L AB113, LAB17, [id number] ####Circuit Court Magistrate: DOMENICA JARA ([id number])[facility])[address] [place] [address] AST [Catalytic activity/Vol] 31 U/L Normal <34 [facility] Comment on above: Performed By: #### L AB113, LAB17, [id number] ####Circuit Court Magistrate: DOMENICA JARA ([id number])[facility])[address] [place] [address] Bilirubin [Mass/Vol] 0.8 mg/dL Normal <1.2 [facility] Comment on above: Performed By: #### L ABAruna, LAB17, [id number] ####Circuit Court Magistrate: DOMENICA JARA ([id number])[facility])[address] [place] [address] Calcium [Mass/Vol] 10.0 mg/dL Normal 8.4-10.[address] [facility] Comment on above: Performed By: #### Tameka AB113, LAB17, [id number] ####Circuit Court Magistrate: DOMENICA JARA ([id number])[facility])[address] [place] [address] [place] Chloride [Moles/Vol] 99 mmol/L Normal 98-107 [facility] Comment on above: Performed By: #### L AB113, LAB17, [id number] ####Circuit Court Magistrate: DOMENICA JARA ([id number])[facility])[address] [place] [address] [place] CO2 [Moles/Vol] 27 mmol/L Normal 22-29 [facility] Comment on above: Performed By: #### L AB113, LAB17, [id number] ####Circuit Court Magistrate: DOMENICA JARA ([id number])[facility])[address] [place] [address] Creatinine [Mass/Vol] 3.64 mg/dL High 0.72-1.25 [facility] Comment on above: Performed By: #### L AB113, LAB17, [id number] ####Circuit Court Magistrate: DOMENICA JARA ([phone])[facility])[address] [place] [address] [place] GLOMERULAR FILTRATION RATE ML/MIN/1.73 SQ M.PREDICTED 18.4 mL/min/1.73m*2 Low >60.0 [facility] Comment on above: Result Comment: Calc ulation based on the Chronic Kidney Disease Epidemiology Collaboration (CKD-EPI) equation refit without adjustment for race Performed By: #### Tameka ABAruna, LAB17, [id number] ####Circuit Court Magistrate: DOMENICA JARA ([phone])[facility])[address] [place] [address] Glucose [Mass/Vol] 87 mg/dL Normal 74-100 [facility] Comment on above: Performed By: #### Tameka GIMENEZ, LAB17, [id number] ####Circuit Court Magistrate: DOMENICA JARA ([id number])[facility])[address] [place] [address] Potassium [Moles/Vol] 4.3 mmol/L Normal 3.5-5.1 [facility] Comment on above: Result Comment: [facility] potassium values may be up to 0.5 mmol/L lower than serum values. Performed By: #### Tameka GIMENEZ, LAB17, [id number] ####Circuit Court Magistrate: DOMENICA JARA ([id number])[facility])[address] [place] [address] Protein [Mass/Vol] 7.3 g/dL Normal 6.4-8.3 [facility] Comment on above: Performed By: #### Tameka ABAruna, LAB17, [id number] ####Circuit Court Magistrate: DOMENICA JARA ([phone])[facility])[address] [place] [address] [place] Sodium [Moles/Vol] 138 mmol/L Normal 136-145 [facility] Comment on above: Performed By: #### Tameka ABAruna, LAB17, [id number] ####Circuit Court Magistrate: DOMENICA JARA ([id number])[facility])[address] [place] [address] [place] Urea nitrogen [Mass/Vol] 15 mg/dL Normal 9-23 [facility] Comment on above: Performed By: #### L AB113, LAB17, [id number] ####Circuit Court Magistrate: DOMENICA JARA ([id number])[facility] ([address] Comprehensive metabolic 1998 panelon 01-31-2025 Albumin [Mass/Vol] 2.1 g/dL Low 3.5 - 5.0 g/dL [facility] ALP [Catalytic activity/Vol] 218 U/L High 40 - 150 U/L [facility] ALT [Catalytic activity/Vol] 11 U/L NINF - 40 U/L [facility] Anion gap [Moles/Vol] 12 mmol/L 3 - 13 mmol/L [facility] AST [Catalytic activity/Vol] 31 U/L NINF - 34 U/L [facility] Bilirubin [Mass/Vol] 0.8 mg/dL NINF - 1.2 mg/dL [facility] Calcium [Mass/Vol] 10 mg/dL 8.4 - 10. 2 mg/dL [facility] Chloride [Moles/Vol] 99 mmol/L 98 - 10 7 mmol/L [facility] CO2 [Moles/Vol] 27 mmol/L 22 - 29 mmol/L [facility] Creatinine [Mass/Vol] 3.64 mg/dL High 0.72 - 1.25 mg/dL [facility] GFR/1.73 sq M.predicted (S/P/Bld) [Vol rate/Area] 18.4 mL/min Low - PINF [facility] Glucose [Mass/Vol] 87 mg/dL 74 - 100 mg/dL [facility] Interpretation and review of laboratory results Abnormal [facility] Potassium [Moles/Vol] 4.3 mmol/L 3.5 - 5.1 mmol/L [facility] Protein [Mass/Vol] 7.3 g/dL 6.4 - 8.3 g/dL [facility] Sodium [Moles/Vol] 138 mmol/L 136 - 145 mmol/L [facility] Urea nitrogen [Mass/Vol] 15 mg/dL 9 - 23 mg/d L [facility] HEMOGLOBIN AND HEMATOCRIT, B LOODon 01-31-2025 Hematocrit (Bld) [Volume fraction] 28.8 % Low 40.0-52.0 [facility] Comment on above: Performed By: #### L AB753 ####Circuit Court Magistrate: DOMENICA JARA ([phone])[facility])[address] [place] [address] Hemoglobin (Bld) [Mass/Vol] 9.2 g/dL Low 13.0-18.0 [facility] Comment on above: Performed By: #### L AB753 ####Circuit Court Magistrate: DOMENICA JARA ([id number])[facility])[address] [place] [address] Hemoglobin (Bld) [Mass/Vol]o n 01-31-2025 Hematocrit (Bld) [Volume fraction] 28.8 % Low 40.0 - 52.0 % [facility] Interpretation and review of laboratory results Abnormal [facility] Laboratory - Chemistry and C hemistry - challengeon 01-31-2025 Magnesium [Mass/Vol] 2 mg/dL 1.6 - 2 .6 mg/dL [facility] Laboratory - Coagulationon 0 01-31-2025 PT Coag (Bld) [Time] 22.4 s High 9.0 - 12.0 s [facility] - Hematology and Cell countson 01-31-2025 Hemoglobin (Bld) [Mass/Vol] 9.2 g/dL Low 13.0 - 18.0 g/dL [facility] MAGNESIUMon 01-31-2025 Magnesium [Mass/Vol] 2.0 mg/dL Normal 1.6-2.6 [facility] Comment on above: Result Comment: ARPAN Kaplan COMMENTS:Higher values can be expected in females during menses. Performed By: #### L AB113, LAB17, [id number] ####Circuit Court Magistrate: DOMENICA JARA ([id number])[facility])[address] [place] [address] Magnesium [Mass/Vol]on 01-31 [facility] No Panel Informationon 01-31 Interpretation and review of laboratory results Normal [facility] Nursing Noteon 01-31-2025 Nursing Note Wound Vac Dressing leaking with foam falling out. Dressing removed and W-D drsg applied. Normal [facility] Nursing Note Patient is out of room at time of visit. Will continue to follow patient for wound care needs. Wanda Quesada, SWEETIE Normal [facility] Nursing Note Normal [facility] PHOSPHORUSon 01-31-2025 Phosphate [Mass/Vol] 4.6 mg/dL Normal 2.3-4.7 [facility] Comment on above: Performed By: #### L AB113, LAB17, [id number] ####Circuit Court Magistrate: DOMENICA JARA ([id number])[facility])[address] [place] [address] PROTHROMBIN TIMEon INR Coag (PPP) [Relative time] 2.2 {INR} High 0.9-1.1 [facility] Comment on above: Result Comment: Vaughn [...] Myocardial Infarction Performed By: #### L AB320 ####Circuit Court Magistrate: DOMENICA JARA ([id number])[facility])[address] [place] [address] PT Coag (PPP) [Time] 22.4 s High 9.0-12.0 [facility] Comment on above: Performed By: #### L AB320 ####Circuit Court Magistrate: DOMENICA JARA ([id number])[facility])[address] [place] [address] PT Coag (Bld) [Time]on 01-31 INR Coag (PPP) [Relative time] 2.2 {INR} High 0.9 - 1.1 [facility] Interpretation and review of laboratory results Abnormal [facility] Phosphate [Moles/Vol]on Phosphate [Mass/Vol] 4.6 mg/dL 2.3 - 4 .7 mg/dL [facility] Progress Noteon 01-31-2025 Progress Note Normal [facility] Progress Note Normal [facility] Progress Note Normal [facility] Progress Note Normal [facility] Progress Note OCCUPATIONAL THERAPY [facility] Name/MRN: Jair Snyder ([id number]) Date: 01/31/2025 Attempted OT re-eval this AM, pt OOR at dialysis. Will follow and re-attempt as able. Giuliana Baird, OTR/L Normal [facility] Progress Note Normal [facility] Progress Note Normal [facility] Progress Note Normal [facility] Progress Note Normal [facility] 30on 01-30-2025 30 Normal [facility] [id number] 01-30-2025 [id number] Message sent to Slate Splitting Supervisor to start [facility] auth for [place] [employer] [place]. Normal [facility] [id number] Normal [facility] BASIC METABOLIC PANELon 05-0 Anion gap [Moles/Vol] 13 mmol/L Normal 3-13 [facility] Comment on above: Performed By: #### L AB103, [id number], LAB15 ####Circuit Court Magistrate: DOMENICA JARA ([id number])[address] Calcium [Mass/Vol] 9.6 mg/dL Normal 8.4-10.2 [facility] Comment on above: Performed By: #### L AB103, [id number], LAB15 ####Circuit Court Magistrate: DOMENICA JARA ([id number])[facility])[address] [place] [address] Chloride [Moles/Vol] 99 mmol/L Normal 98-107 [facility] Comment on above: Performed By: #### L AB103, [id number], LAB15 ####Circuit Court Magistrate: DOMENICA JARA ([id number])[facility])[address] [place] [address] CO2 [Moles/Vol] 23 mmol/L Normal 22-29 [facility] Comment on above: Performed By: #### L AB103, [id number], LAB15 ####Circuit Court Magistrate: DOMENICA JARA ([id number])[facility] [place] [address] Creatinine [Mass/Vol] 2.56 mg/dL High 0.72-1.25 [facility] Comment on above: Performed By: #### L AB103, [id number], LAB15 ####Circuit Court Magistrate: DOMENICA JARA ([id number])[facility])[address] [place] [address] Glucose [Mass/Vol] 88 mg/dL Normal 74-100 [facility] Comment on above: Performed By: #### L AB103, [id number], LAB15 ####Circuit Court Magistrate: DOMENICA JARA ([id number])[facility])[address] [place] [address] Potassium [Moles/Vol] 3.7 mmol/L Normal 3.5-5.1 [facility] Comment on above: Result Comment: [facility] potassium values may be up to 0.5 mmol/L lower than serum values. Performed By: #### L AB103, [id number], LAB15 ####Circuit Court Magistrate: DOMENICA JARA ([id number])[facility])[address] [place] [address] Sodium [Moles/Vol] 135 mmol/L Low 136-145 [facility] Comment on above: Performed By: #### L AB103, [id number], LAB15 ####Circuit Court Magistrate: DOMENICA JARA ([id number])[facility])[address] [place] [address] Urea nitrogen [Mass/Vol] 10 mg/dL Normal 9-23 [facility] Comment on above: Performed By: #### L AB103, [id number], LAB15 ####Circuit Court Magistrate: DOMENICA JARA ([phone])[facility])[address] Basic metabolic 1998 panelon 01-30-2025 Anion gap [Moles/Vol] 13 mmol/L 3 - 13 mmol/L [facility] Calcium [Mass/Vol] 9.6 mg/dL 8.4 - 10. 2 mg/dL [facility] Chloride [Moles/Vol] 99 mmol/L 98 - 10 7 mmol/L [facility] CO2 [Moles/Vol] 23 mmol/L 22 - 29 mmol/L [facility] Creatinine [Mass/Vol] 2.56 mg/dL High 0.72 - 1.25 mg/dL [facility] GFR/1.73 sq M.predicted (S/P/Bld) [Vol rate/Area] 28.1 mL/min Low - PINF [facility] Glucose [Mass/Vol] 88 mg/dL 74 - 100 mg/dL [facility] Interpretation and review of laboratory results Abnormal [facility] Potassium [Moles/Vol] 3.7 mmol/L 3.5 - 5.1 mmol/L [facility] Sodium [Moles/Vol] 135 mmol/L Low 136 - 145 mmol/L [facility] Urea nitrogen [Mass/Vol] 10 mg/dL 9 - 23 mg/d L [facility] CBC (HEMOGRAM)on 01-30-2025 Erythrocyte distribution width (RBC) [Ratio] 18.9 % High 11.5-15.0 [facility] Comment on above: Performed By: #### L AB294 ####Circuit Court Magistrate: DOMENICA [id number])[address] Hematocrit (Bld) [Volume fraction] 28.1 % Low 40.0-52.0 [facility] Comment on above: Performed By: #### L AB294 ####Circuit Court Magistrate: DOMENICA [id number])[facility])[address] [place] [address] Hemoglobin (Bld) [Mass/Vol] 8.7 g/dL Low 13.0-18.0 [facility] Comment on above: Performed By: #### L AB294 ####Circuit Court Magistrate: DOMENICA [id number])[facility] [place] [address] MCH (RBC) [Entitic mass] 27.6 pg Normal 26.0-34.0 [facility] Comment on above: Performed By: #### L AB294 ####Circuit Court Magistrate: DOMENICA JARA ([id number])[facility])[address] [place] [address] MCHC 31.0 % Normal 30.5-36.0 [facility] Comment on above: Performed By: #### L AB294 ####Circuit Court Magistrate: DOMENICA JARA ([id number])[facility])[address] [place] [address] MCV (RBC) [Entitic vol] 89.2 fL Normal 77.0-99.0 S [facility] Comment on above: Performed By: #### L AB294 ####Circuit Court Magistrate: DOMENICA JARA ([id number])[facility])[address] [place] [address] Platelet mean volume (Bld) [Entitic vol] 9.1 fL Normal 9.0-12.7 [facility] Comment on above: Performed By: #### L AB294 ####Circuit Court Magistrate: DOMENICA JARA ([id number])[facility])[address] [place] [address] Platelets (Bld) [#/Vol] 276 10*3/uL Normal 140-440 [facility] Comment on above: Performed By: #### L AB294 ####Circuit Court Magistrate: DOMENICA JARA ([id number])[facility])[address] [place] [address] RBC (Bld) [#/Vol] 3.15 10*6/uL Low 4.40-5.90 [facility] Comment on above: Performed By: #### L AB294 ####Circuit Court Magistrate: DOMENICA JARA ([id number])[facility])[address] [place] [address] [place] WBC (Bld) [#/Vol] 8.8 10*3/uL Normal 3.6-10.7 [facility] Comment on above: Performed By: #### L AB294 ####Circuit Court Magistrate: DOMENICA JARA ([id number])[facility])[address] [place] [address] CBC panel Auto (Bld)on 01-30 Erythrocyte distribution width (RBC) [Ratio] 18.9 % High 11.5 - 15.0 % [facility] Hematocrit (Bld) [Volume fraction] 28.1 % Low 40.0 - 52.0 % [facility] Hemoglobin (Bld) [Mass/Vol] 8.7 g/dL Low 13.0 - 18.0 g/dL [facility] Interpretation and review of laboratory results Abnormal [facility] MCH (RBC) [Entitic mass] 27.6 pg 26. 0 - 34.0 pg [facility] MCHC (RBC) [Mass/Vol] 31 % 30.5 - 36.0 % [facility] MCV (RBC) [Entitic vol] 89.2 fL 77.0 - 99.0 fL [facility] Platelet mean volume (Bld) [Entitic vol] 9.1 fL 9.0 - 12.7 fL [facility] Platelets (Bld) [#/Vol] 276 10*3/uL 140 - 440 10*3/uL [facility] RBC (Bld) [#/Vol] 3.15 10*6/uL Low 4.40 - 5.9 0 10*6/uL [facility] WBC (Bld) [#/Vol] 8.8 10*3/uL 3.6 - 10.7 10*3/uL [facility] HEMOGLOBIN AND HEMATOCRIT, B LOODon 01-30-2025 Hematocrit (Bld) [Volume fraction] 31.5 % Low 40.0-52.0 [facility] Comment on above: Performed By: #### L AB753 ####Circuit Court Magistrate: DOMENICA JARA ([id number])[facility])[address] [place] [address] Hemoglobin (Bld) [Mass/Vol] 9.8 g/dL Low 13.0-18.0 [facility] Comment on above: Performed By: #### L AB753 ####Circuit Court Magistrate: DOMENICA JARA ([id number])[facility] ([facility])[address] [place] [address] [place] Hemoglobin (Bld) [Mass/Vol]O rdered By: Rikki Caballero on 01-30-2025 Hematocrit (Bld) [Volume fraction] 31.5 % Low 40.0 - 52.0 % [facility] Interpretation and review of laboratory results Abnormal [facility] Laboratory - Chemistry and C hemistry - challengeon 01-30-2025 Glucose [Mass/Vol] 106 mg/dL High 70 - 100 mg/dL [facility] Glucose [Mass/Vol] 107 mg/dL High 70 - 100 mg/dL [facility] Glucose [Mass/Vol] 77 mg/dL 70 - 100 mg/dL [facility] Magnesium [Mass/Vol] 1.9 mg/dL 1.6 - 2 .6 mg/dL [facility] Laboratory - Coagulationon 0 01-30-2025 PT Coag (Bld) [Time] 24.9 s High 9.0 - 12.0 s [facility] Laboratory - Hematology and Cell countsOrdered By: Rikki Caballero on 01-30-2025 Hemoglobin (Bld) [Mass/Vol] 9.8 g/dL Low 13.0 - 18.0 g/dL [facility] MAGNESIUMon 01-30-2025 Magnesium [Mass/Vol] 1.9 mg/dL Normal 1.6-2.6 [facility] Comment on above: Result Comment: ARPAN Kaplan COMMENTS:Higher values can be expected in females during menses. Performed By: #### L AB103, [id number], LAB15 ####Circuit Court Magistrate: DOMENICA JARA ([id number])[facility])[address] [place] [address] [place] Magnesium [Mass/Vol]on 01-30 Interpretation and review of laboratory results Normal [facility] No Panel Informationon 01-30 Interpretation and review of laboratory results Abnormal [facility] RADIOLOGY SYSTEM [facility] Radiology Study observation (narrative) [facility] Interpretation and review of laboratory results Abnormal [facility] Interpretation and review of laboratory results Normal [facility] Blood Expiration Date [id number] [facility] Crossmatch interpretation COMP [facility] Dispense Status Released from [employer] [facility] Product Blood Type 9500 [facility] PRODUCT CODE [id number] [facility] ABO O [facility] Unit Number [id number] [facility] alth Unit RH Negative [facility] Volume 300 mL [facility] No Panel InformationOrdered By: Jun Borrero on 01-30-2025 [facility] Work Phone: Nursing Noteon 01-30-2025 Nursing Note Normal [facility] PHOSPHORUSon 01-30-2025 Phosphate [Mass/Vol] 3.7 mg/dL Normal 2.3-4.7 [facility] Comment on above: Performed By: #### L AB103, [id number], LAB15 ####Circuit Court Magistrate: DOMENICA JARA ([phone])[facility])[address] [place] [address] PROTHROMBIN TIMEon INR Coag (PPP) [Relative time] 2.5 {INR} High 0.9-1.1 [facility] Comment on above: Performed By: #### L AB320 ####Circuit Court Magistrate: DOMENICA JARA ([id number])[facility])[address] [place] [address] PT Coag (PPP) [Time] 24.9 s High 9.0-12.0 [facility] Comment on above: Performed By: #### L AB320 ####Circuit Court Magistrate: DOMENICA JARA ([id number])[facility])[address] [place] [address] [place] PT Coag (Bld) [Time]on 01-30 INR Coag (PPP) [Relative time] 2.5 {INR} High 0.9 - 1.1 [facility] Interpretation and review of laboratory results Abnormal [facility] Phosphate [Moles/Vol]on Interpretation and review of laboratory results Normal [facility] Phosphate [Mass/Vol] 3.7 mg/dL 2.3 - 4 .7 mg/dL [facility] Progress Noteon 01-30-2025 Progress Note Normal [facility] Progress Note OCCUPATIONAL THERAPY [facility] Name/MRN: Jair Snyder ([id number]) Date: 01/30/2025 Attempted OT services however, Pt is currently OOR-at specials for IR line- Per RN. Will re attempt for pre cert as schedule permits. VICKY Bates Normal [facility] Progress Note Speech-Language Pathology Patient is off of the unit for tunnel catheter placement. Will reschedule dysphagia treatment session for 01/31/2025 and determine if patient is a candidate for diet upgrade. Christina Limon MS, CCC/SHEET HANGER Normal [facility] Progress Note [facility] Progress Note Normal [facility] Progress Note Normal [facility] Progress Note Normal [facility] Progress Note Normal [facility] Basic metabolic 1998 panelon 01-29-2025 Anion gap [Moles/Vol] 17 mmol/L High 3 - 13 mmol/L [facility] Calcium [Mass/Vol] 9.8 mg/dL 8.4 - 10. 2 mg/dL [facility] Chloride [Moles/Vol] 94 mmol/L Low 98 - 10 7 mmol/L [facility] CO2 [Moles/Vol] 23 mmol/L 22 - 29 mmol/L [facility] Creatinine [Mass/Vol] 4.17 mg/dL High 0.72 - 1.25 mg/dL [facility] GFR/1.73 sq M.predicted (S/P/Bld) [Vol rate/Area] 15.6 mL/min Low - PINF [facility] Glucose [Mass/Vol] 80 mg/dL 74 - 100 mg/dL [facility] Potassium [Moles/Vol] 3.7 mmol/L 3.5 - 5.1 mmol/L [facility] Sodium [Moles/Vol] 134 mmol/L Low 136 - 145 mmol/L [facility] Urea nitrogen [Mass/Vol] 21 mg/dL 9 - 23 mg/d L [facility] CBC panel Auto (Bld)on 01-29 Erythrocyte distribution width (RBC) [Ratio] 19 % High 11.5 - 15.0 % [facility] Hematocrit (Bld) [Volume fraction] 27.3 % Low 40.0 - 52.0 % [facility] Hemoglobin (Bld) [Mass/Vol] 8.6 g/dL Low 13.0 - 18.0 g/dL [facility] Interpretation and review of laboratory results Abnormal [facility] MCH (RBC) [Entitic mass] 28.1 pg 26. 0 - 34.0 pg [facility] MCHC (RBC) [Mass/Vol] 31.5 % 30.5 - 36.0 % [facility] MCV (RBC) [Entitic vol] 89.2 fL 77.0 - 99.0 fL [facility] Platelet mean volume (Bld) [Entitic vol] 9.4 fL 9.0 - 12.7 fL [facility] Platelets (Bld) [#/Vol] 271 10*3/uL 140 - 440 10*3/uL [facility] RBC (Bld) [#/Vol] 3.06 10*6/uL Low 4.40 - 5.9 0 10*6/uL [facility] WBC (Bld) [#/Vol] 9.4 10*3/uL 3.6 - 10.7 10*3/uL [facility] Laboratory - Chemistry and C hemistry - challengeon 01-29-2025 Glucose [Mass/Vol] 82 mg/dL 70 - 100 mg/dL [facility] Glucose [Mass/Vol] 87 mg/dL 70 - 100 mg/dL [facility] Glucose [Mass/Vol] 91 mg/dL 70 - 100 mg/dL [facility] Magnesium [Mass/Vol] 2 mg/dL 1.6 - 2 .6 mg/dL [facility] Laboratory - Coagulationon 0 01-29-2025 Coagulation factor VIII activity actual/normal Coag (PPP) [Relative time] 412 % High 56 - 191 % [facility] vWf Ag actual/normal IA (PPP) [Relative mass conc] 281 % High 52 - 214 % [facility] vWf multimers Ql (PPP) See Note [facility] vWf ristocetin cofactor act actual/normal Platelet aggregation (PPP) [Relative time] 200 % 51 - 215 % [facility] PT Coag (Bld) [Time] 24 s High 9.0 - 12.0 s [facility] Magnesium [Mass/Vol]on 01-29 Interpretation and review of laboratory results Normal [facility] No Panel Informationon 01-29 Interpretation and review of laboratory results Normal [facility] Interpretation and review of laboratory results Normal [facility] Interpretation and review of laboratory results Abnormal [facility] Interpretation and review of laboratory results Normal [facility] Interpretation and review of laboratory results Abnormal [facility] Interpretation and review of laboratory results Abnormal [facility] [facility] PT Coag (Bld) [Time]on 01-29 INR Coag (PPP) [Relative time] 2.4 {INR} High 0.9 - 1.1 [facility] Phosphate [Moles/Vol]on Phosphate [Mass/Vol] 4.9 mg/dL High 2.3 - 4 .7 mg/dL [facility] aPTT Coag (Bld) [Time]on aPTT Coag (PPP) [Time] 51.4 s High 20.0 - 30.5 s [facility] Basic metabolic 1998 panelon 01-28-2025 Anion gap [Moles/Vol] 13 mmol/L 3 - 13 mmol/L [facility] Calcium [Mass/Vol] 10 mg/dL 8.4 - 10. 2 mg/dL [facility] Chloride [Moles/Vol] 98 mmol/L 98 - 10 7 mmol/L [facility] CO2 [Moles/Vol] 26 mmol/L 22 - 29 mmol/L [facility] Creatinine [Mass/Vol] 3.37 mg/dL High 0.72 - 1.25 mg/dL [facility] GFR/1.73 sq M.predicted (S/P/Bld) [Vol rate/Area] 20.2 mL/min Low - PINF [facility] Glucose [Mass/Vol] 82 mg/dL 74 - 100 mg/dL [facility] Interpretation and review of laboratory results Abnormal [facility] Potassium [Moles/Vol] 3.6 mmol/L 3.5 - 5.1 mmol/L [facility] Sodium [Moles/Vol] 137 mmol/L 136 - 145 mmol/L [facility] Urea nitrogen [Mass/Vol] 14 mg/dL 9 - 23 mg/d L [facility] CBC panel Auto (Bld)on 01-28 Erythrocyte distribution width (RBC) [Ratio] 19 % High 11.5 - 15.0 % [facility] Hematocrit (Bld) [Volume fraction] 26.3 % Low 40.0 - 52.0 % [facility] Hemoglobin (Bld) [Mass/Vol] 8.5 g/dL Low 13.0 - 18.0 g/dL [facility] Interpretation and review of laboratory results Abnormal [facility] MCH (RBC) [Entitic mass] 28.2 pg 26. 0 - 34.0 pg [facility] MCHC (RBC) [Mass/Vol] 32.3 % 30.5 - 36.0 % [facility] MCV (RBC) [Entitic vol] 87.4 fL 77.0 - 99.0 fL [facility] Platelet mean volume (Bld) [Entitic vol] 9.3 fL 9.0 - 12.7 fL [facility] Platelets (Bld) [#/Vol] 240 10*3/uL 140 - 440 10*3/uL [facility] RBC (Bld) [#/Vol] 3.01 10*6/uL Low 4.40 - 5.9 0 10*6/uL [facility] WBC (Bld) [#/Vol] 9.8 10*3/uL 3.6 - 10.7 10*3/uL [facility] Laboratory - Chemistry and C hemistry - challengeon 01-28-2025 Glucose [Mass/Vol] 127 mg/dL High 70 - 100 mg/dL [facility] Magnesium [Mass/Vol] 2 mg/dL 1.6 - 2 .6 mg/dL [facility] Laboratory - Coagulationon 0 01-28-2025 PT Coag (Bld) [Time] 21.9 s High 9.0 - 12.0 s [facility] Magnesium [Mass/Vol]on 01-28 Interpretation and review of laboratory results Normal [facility] No Panel Informationon 01-28 Interpretation and review of laboratory results Abnormal [facility] Interpretation and review of laboratory results Abnormal [facility] PT Coag (Bld) [Time]on 01-28 INR Coag (PPP) [Relative time] 2.2 {INR} High 0.9 - 1.1 [facility] Phosphate [Moles/Vol]on Interpretation and review of laboratory results Abnormal [facility] Phosphate [Mass/Vol] 4.9 mg/dL High 2.3 - 4 .7 mg/dL [facility] aPTT Coag (Bld) [Time]on aPTT Coag (PPP) [Time] 49 s High 20.0 - 30.5 s [facility] Interpretation and review of laboratory results Abnormal [facility] aPTT Coag (PPP) [Time] 46.3 s High 20.0 - 30.5 s [facility] Basic metabolic 1998 panelon 01-27-2025 Anion gap [Moles/Vol] 17 mmol/L High 3 - 13 mmol/L [facility] Calcium [Mass/Vol] 9.9 mg/dL 8.4 - 10. 2 mg/dL [facility] Chloride [Moles/Vol] 99 mmol/L 98 - 10 7 mmol/L [facility] CO2 [Moles/Vol] 23 mmol/L 22 - 29 mmol/L [facility] Creatinine [Mass/Vol] 2.27 mg/dL High 0.72 - 1.25 mg/dL [facility] GFR/1.73 sq M.predicted (S/P/Bld) [Vol rate/Area] 32.4 mL/min Low - PINF [facility] Glucose [Mass/Vol] 115 mg/dL High 74 - 100 mg/dL [facility] Interpretation and review of laboratory results Abnormal [facility] Potassium [Moles/Vol] 3.9 mmol/L 3.5 - 5.1 mmol/L [facility] Sodium [Moles/Vol] 139 mmol/L 136 - 145 mmol/L [facility] Urea nitrogen [Mass/Vol] 9 mg/dL 9 - 23 mg/d L [facility] CBC panel Auto (Bld)on 01-27 Erythrocyte distribution width (RBC) [Ratio] 19.1 % High 11.5 - 15.0 % [facility] Hematocrit (Bld) [Volume fraction] 28.3 % Low 40.0 - 52.0 % [facility] Hemoglobin (Bld) [Mass/Vol] 9 g/dL Low 13.0 - 18.0 g/dL [facility] Interpretation and review of laboratory results Abnormal [facility] MCH (RBC) [Entitic mass] 27.6 pg 26. 0 - 34.0 pg [facility] MCHC (RBC) [Mass/Vol] 31.8 % 30.5 - 36.0 % [facility] MCV (RBC) [Entitic vol] 86.8 fL 77.0 - 99.0 fL [facility] Platelet mean volume (Bld) [Entitic vol] 8.7 fL Low 9.0 - 12.7 fL [facility] Platelets (Bld) [#/Vol] 273 10*3/uL 140 - 440 10*3/uL [facility] RBC (Bld) [#/Vol] 3.26 10*6/uL Low 4.40 - 5.9 0 10*6/uL [facility] WBC (Bld) [#/Vol] 10 10*3/uL 3.6 - 10.7 10*3/uL [facility] Hemoglobin (Bld) [Mass/Vol]o n 01-27-2025 Hematocrit (Bld) [Volume fraction] 26.3 % Low 40.0 - 52.0 % [facility] Interpretation and review of laboratory results Abnormal [facility] Laboratory - Chemistry and C hemistry - challengeon 01-27-2025 Glucose [Mass/Vol] 102 mg/dL High 70 - 100 mg/dL [facility] Glucose [Mass/Vol] 127 mg/dL High 70 - 100 mg/dL [facility] Glucose [Mass/Vol] 87 mg/dL 70 - 100 mg/dL [facility] Magnesium [Mass/Vol] 1.9 mg/dL 1.6 - 2 .6 mg/dL [facility] Laboratory - Coagulationon 0 01-27-2025 PT Coag (Bld) [Time] 19.9 s High 9.0 - 12.0 s [facility] Laboratory - Hematology and Cell countson 01-27-2025 Hemoglobin (Bld) [Mass/Vol] 8.4 g/dL Low 13.0 - 18.0 g/dL [facility] Magnesium [Mass/Vol]on 01-27 [facility] No Panel Informationon 01-27 Interpretation and review of laboratory results Abnormal [facility] Interpretation and review of laboratory results Abnormal [facility] Interpretation and review of laboratory results Normal [facility] Interpretation and review of laboratory results Abnormal [facility] Interpretation and review of laboratory results Normal [facility] PT Coag (Bld) [Time]on 01-27 INR Coag (PPP) [Relative time] 1.9 {INR} High 0.9 - 1.1 [facility] Phosphate [Moles/Vol]on Phosphate [Mass/Vol] 3.4 mg/dL 2.3 - 4 .7 mg/dL [facility] aPTT Coag (Bld) [Time]on aPTT Coag (PPP) [Time] 47.9 s High 20.0 - 30.5 s [facility] Interpretation and review of laboratory results Abnormal [facility] aPTT Coag (PPP) [Time] 49.6 s High 20.0 - 30.5 s [facility] Interpretation and review of laboratory results Abnormal [facility] aPTT Coag (PPP) [Time] 45 s High 20.0 - 30.5 s [facility] Interpretation and review of laboratory results Abnormal [facility] aPTT Coag (PPP) [Time] 40.2 s High 20.0 - 30.5 s [facility] Basic metabolic 1998 panelon 01-26-2025 Anion gap [Moles/Vol] 16 mmol/L High 3 - 13 mmol/L [facility] Calcium [Mass/Vol] 9 mg/dL 8.4 - 10. 2 mg/dL [facility] Chloride [Moles/Vol] 100 mmol/L 98 - 10 7 mmol/L [facility] CO2 [Moles/Vol] 20 mmol/L Low 22 - 29 mmol/L [facility] Creatinine [Mass/Vol] 3.37 mg/dL High 0.72 - 1.25 mg/dL [facility] GFR/1.73 sq M.predicted (S/P/Bld) [Vol rate/Area] 20.2 mL/min Low - PINF [facility] Glucose [Mass/Vol] 75 mg/dL 74 - 100 mg/dL [facility] Interpretation and review of laboratory results Abnormal [facility] Potassium [Moles/Vol] 5.1 mmol/L 3.5 - 5.1 mmol/L [facility] Sodium [Moles/Vol] 136 mmol/L 136 - 145 mmol/L [facility] Urea nitrogen [Mass/Vol] 19 mg/dL 9 - 23 mg/d L [facility] CBC panel Auto (Bld)Ordered By: Brandy Ross on 01-26-2025 Erythrocyte distribution width (RBC) [Ratio] 19.3 % High 11.5 - 15.0 % [facility] Hematocrit (Bld) [Volume fraction] 21 % Low 40.0 - 52.0 % [facility] Hemoglobin (Bld) [Mass/Vol] 6.7 g/dL Critically low 13.0 - 18.0 g/dL [facility] Interpretation and review of laboratory results Abnormal [facility] MCH (RBC) [Entitic mass] 27.8 pg 26. 0 - 34.0 pg [facility] MCHC (RBC) [Mass/Vol] 31.9 % 30.5 - 36.0 % [facility] MCV (RBC) [Entitic vol] 87.1 fL 77.0 - 99.0 fL [facility] Platelet mean volume (Bld) [Entitic vol] 10 fL 9.0 - 12.7 fL [facility] Platelets (Bld) [#/Vol] 265 10*3/uL 140 - 440 10*3/uL [facility] RBC (Bld) [#/Vol] 2.41 10*6/uL Low 4.40 - 5.9 0 10*6/uL [facility] WBC (Bld) [#/Vol] 8.7 10*3/uL 3.6 - 10.7 10*3/uL [facility] HBV surface Ab IA Qnon 01-26 [facility] HBV surface Ag IA Qlon 01-26 Interpretation and review of laboratory results Normal [facility] Hemoglobin (Bld) [Mass/Vol]o n 01-26-2025 Hematocrit (Bld) [Volume fraction] 27.9 % Low 40.0 - 52.0 % [facility] Interpretation and review of laboratory results Abnormal [facility] Hematocrit (Bld) [Volume fraction] 28.4 % Low 40.0 - 52.0 % [facility] Interpretation and review of laboratory results Abnormal [facility] Laboratory - Chemistry and C hemistry - challengeon 01-26-2025 Magnesium [Mass/Vol] 2 mg/dL 1.6 - 2 .6 mg/dL [facility] Laboratory - Coagulationon 01-26-2025 PT Coag (Bld) [Time] 18.3 s High 9.0 - 12.0 s [facility] Laboratory - Hematology and Cell countson 01-26-2025 Hemoglobin (Bld) [Mass/Vol] 9 g/dL Low 13.0 - 18.0 g/dL [facility] Hemoglobin (Bld) [Mass/Vol] 8.9 g/dL Low 13.0 - 18.0 g/dL [facility] Laboratory - Microbiology an d Antimicrobial susceptibilityon 01-26-2025 HBV surface Ab IA Qn mIU/mL [facility] HBV surface Ag IA Ql Not detected Not Detected [facility] Magnesium [Mass/Vol]on 01-26 Interpretation and review of laboratory results Normal [facility] No Panel Informationon 01-26 [facility] Blood Expiration Date [id number] [facility] Crossmatch interpretation COMP [facility] Dispense Status Transfused [facility] Product Blood Type 9500 [facility] PRODUCT CODE [id number] [facility] Unit ABO O [facility] Unit Number [id number] [facility] Unit RH Negative [facility] Unit Volume 300 mL [facility] Interpretation and review of laboratory results Abnormal [facility] PT Coag (Bld) [Time]on 01-26 INR Coag (PPP) [Relative time] 1.8 {INR} High 0.9 - 1.1 [facility] Phosphate [Moles/Vol]on Interpretation and review of laboratory results Abnormal [facility] Phosphate [Mass/Vol] 5.3 mg/dL High 2.3 - 4 .7 mg/dL [facility] aPTT Coag (Bld) [Time]on aPTT Coag (PPP) [Time] 41.6 s High 20.0 - 30.5 s [facility] Interpretation and review of laboratory results Abnormal [facility] aPTT Coag (PPP) [Time] 47 s High 20.0 - 30.5 s [facility] aPTT Coag (Bld) [Time]Ordere d By: Alan Santos on 01-26-2025 aPTT Coag (PPP) [Time] s Critically high 20.0 - 3 0.5 s [facility] Interpretation and review of laboratory results Abnormal [facility] Basic metabolic 1998 panelon 01-25-2025 Anion gap [Moles/Vol] 16 mmol/L High 3 - 13 mmol/L [facility] Calcium [Mass/Vol] 10.1 mg/dL 8.4 - 10. 2 mg/dL [facility] Chloride [Moles/Vol] 98 mmol/L 98 - 10 7 mmol/L [facility] CO2 [Moles/Vol] 24 mmol/L 22 - 29 mmol/L [facility] Creatinine [Mass/Vol] 2.54 mg/dL High 0.72 - 1.25 mg/dL [facility] GFR/1.73 sq M.predicted (S/P/Bld) [Vol rate/Area] 28.3 mL/min Low - PINF [facility] Glucose [Mass/Vol] 74 mg/dL 74 - 100 mg/dL [facility] Interpretation and review of laboratory results Abnormal [facility] Potassium [Moles/Vol] 3.9 mmol/L 3.5 - 5.1 mmol/L [facility] Sodium [Moles/Vol] 138 mmol/L 136 - 145 mmol/L [facility] Urea nitrogen [Mass/Vol] 15 mg/dL 9 - 23 mg/d L [facility] Blood type and Crossmatch pa freida (Bld)on 01-25-2025 ABO group Nom (Bld) O [facility] Blood group antibody screen GEL Ql Negative [facility] D Ag Ql (RBC) Negative [facility] CBC panel Auto (Bld)on 01-25 Erythrocyte distribution width (RBC) [Ratio] 19.2 % High 11.5 - 15.0 % [facility] Hematocrit (Bld) [Volume fraction] 22.5 % Low 40.0 - 52.0 % [facility] Hemoglobin (Bld) [Mass/Vol] 7 g/dL Low 13.0 - 18.0 g/dL [facility] Interpretation and review of laboratory results Abnormal [facility] MCH (RBC) [Entitic mass] 27.6 pg 26. 0 - 34.0 pg [facility] MCHC (RBC) [Mass/Vol] 31.1 % 30.5 - 36.0 % [facility] MCV (RBC) [Entitic vol] 88.6 fL 77.0 - 99.0 fL [facility] Platelet mean volume (Bld) [Entitic vol] 8.8 fL Low 9.0 - 12.7 fL [facility] Platelets (Bld) [#/Vol] 285 10*3/uL 140 - 440 10*3/uL [facility] RBC (Bld) [#/Vol] 2.54 10*6/uL Low 4.40 - 5.9 0 10*6/uL [facility] WBC (Bld) [#/Vol] 10.2 10*3/uL 3.6 - 10.7 10*3/uL [facility] Hemoglobin (Bld) [Mass/Vol]o n 01-25-2025 Hematocrit (Bld) [Volume fraction] 23.8 % Low 40.0 - 52.0 % [facility] Interpretation and review of laboratory results Abnormal [facility] Hematocrit (Bld) [Volume fraction] 24.4 % Low 40.0 - 52.0 % [facility] Interpretation and review of laboratory results Abnormal [facility] Hematocrit (Bld) [Volume fraction] 24.6 % Low 40.0 - 52.0 % [facility] Interpretation and review of laboratory results Abnormal [facility] Hematocrit (Bld) [Volume fraction] 20.4 % Low 40.0 - 52.0 % [facility] Interpretation and review of laboratory results Abnormal [facility] Laboratory - Chemistry and C hemistry - challengeon 01-25-2025 Magnesium [Mass/Vol] 2.1 mg/dL 1.6 - 2 .6 mg/dL [facility] Laboratory - Coagulationon 0 01-25-2025 PT Coag (Bld) [Time] 17.4 s High 9.0 - 12.0 s [facility] PT Coag (Bld) [Time] 15.9 s High 9.0 - 12.0 s [facility] Laboratory - Hematology and Cell countson 05-01-2025 Hemoglobin (Bld) [Mass/Vol] 7.6 g/dL Low 13.0 - 18.0 g/dL [facility] Hemoglobin (Bld) [Mass/Vol] 7.7 g/dL Low 13.0 - 18.0 g/dL [facility] Hemoglobin (Bld) [Mass/Vol] 8 g/dL Low 13.0 - 18.0 g/dL [facility] Hemoglobin (Bld) [Mass/Vol] 6.3 g/dL Critically low 13.0 - 18.0 g/dL [facility] Laboratory - Microbiology an d Antimicrobial susceptibilityon 01-25-2025 A. baumannii DNA EMMANUEL+probe Ql (Unsp spec) Not detected Not Detected [place] [facility] - Microbiology an d Antimicrobial susceptibilityOrdered By: Petra Harris on 01-25-2025 C. auris ITS2 gene EMMANUEL+probe Ql (Unsp spec) Not detected Not Detected [place] Magnesium [Mass/Vol]on 01-25 [facility] No Panel Informationon 01-25 Interpretation and review of laboratory results Normal [facility] Blood Expiration Date [id number] [facility] Crossmatch interpretation COMP [facility] Dispense Status Transfused [facility] Product Blood Type 9500 [facility] PRODUCT CODE [id number] [facility] Unit ABO O [facility] Unit Number [id number] [facility] Unit RH Negative [facility] Unit Volume 300 mL [facility] Interpretation and review of laboratory results Normal [facility] No Panel InformationOrdered By: Petra Harris on 01-25-2025 Interpretation and review of laboratory results Normal [facility] PT Coag (Bld) [Time]on 01-25 INR Coag (PPP) [Relative time] 1.7 {INR} High 0.9 - 1.1 [facility] Interpretation and review of laboratory results Abnormal [facility] INR Coag (PPP) [Relative time] 1.5 {INR} High 0.9 - 1.1 [facility] Interpretation and review of laboratory results Abnormal [facility] Phosphate [Moles/Vol]on Phosphate [Mass/Vol] 3.9 mg/dL 2.3 - 4 .7 mg/dL [facility] RF videography Hypopharynx a nd Esophagus Views for swallowing function W speech and W barium contrast Juan Carlos 01-25-2025 [facility] RAD[facility] Radiology Study observation (narrative) [facility] meredith RF videography Hypopharynx a nd Esophagus Views for swallowing function W speech and W barium contrast POOrdered By: Sulaiman Harp on 01-25-2025 [facility] Work Phone: aPTT Coag (Bld) [Time]on aPTT Coag (PPP) [Time] s Critically high 20.0 - 3 0.5 s [facility] Interpretation and review of laboratory results Abnormal [facility] aPTT Coag (PPP) [Time] 83.1 s High 20.0 - 30.5 s [facility] Interpretation and review of laboratory results Abnormal [facility] aPTT Coag (PPP) [Time] 47.3 s High 20.0 - 30.5 s [facility] Interpretation and review of laboratory results Abnormal [facility] Basic metabolic 1998 panelon 01-24-2025 Anion gap [Moles/Vol] 12 mmol/L 3 - 13 mmol/L [facility] Calcium [Mass/Vol] 9.3 mg/dL 8.4 - 10. 2 mg/dL [facility] Chloride [Moles/Vol] 100 mmol/L 98 - 10 7 mmol/L [facility] CO2 [Moles/Vol] 26 mmol/L 22 - 29 mmol/L [facility] Creatinine [Mass/Vol] 1.47 mg/dL High 0.72 - 1.25 mg/dL [facility] GFR/1.73 sq M.predicted (S/P/Bld) [Vol rate/Area] 54.6 mL/min Low - PINF [facility] Glucose [Mass/Vol] 77 mg/dL 74 - 100 mg/dL [facility] Interpretation and review of laboratory results Abnormal [facility] Potassium [Moles/Vol] 3.5 mmol/L 3.5 - 5.1 mmol/L [facility] Sodium [Moles/Vol] 138 mmol/L 136 - 145 mmol/L [facility] Urea nitrogen [Mass/Vol] 9 mg/dL 9 - 23 mg/d L [facility] Anion gap [Moles/Vol] 20 mmol/L High 3 - 13 mmol/L [facility] Calcium [Mass/Vol] 10.2 mg/dL 8.4 - 10. 2 mg/dL [facility] Chloride [Moles/Vol] 98 mmol/L 98 - 10 7 mmol/L [facility] CO2 [Moles/Vol] 21 mmol/L Low 22 - 29 mmol/L [facility] Creatinine [Mass/Vol] 3.62 mg/dL High 0.72 - 1.25 mg/dL [facility] GFR/1.73 sq M.predicted (S/P/Bld) [Vol rate/Area] 18.5 mL/min Low - PINF [facility] Glucose [Mass/Vol] 74 mg/dL 74 - 100 mg/dL [facility] Potassium [Moles/Vol] 4 mmol/L 3.5 - 5.1 mmol/L [facility] Sodium [Moles/Vol] 139 mmol/L 136 - 145 mmol/L [facility] Urea nitrogen [Mass/Vol] 27 mg/dL High 9 - 23 mg/d L [facility] CBC panel Auto (Bld)Ordered By: Liseth Granado on 01-24-2025 Erythrocyte distribution width (RBC) [Ratio] 19.4 % High 11.5 - 15.0 % [facility] Hematocrit (Bld) [Volume fraction] 27 % Low 40.0 - 52.0 % [facility] Hemoglobin (Bld) [Mass/Vol] 8 g/dL Low 13.0 - 18.0 g/dL [facility] Interpretation and review of laboratory results Abnormal [facility] MCH (RBC) [Entitic mass] 27.9 pg 26. 0 - 34.0 pg [facility] MCHC (RBC) [Mass/Vol] 29.6 % Low 30.5 - 36.0 % [facility] MCV (RBC) [Entitic vol] 94.1 fL 77.0 - 99.0 fL [facility] Platelet mean volume (Bld) [Entitic vol] 9.2 fL 9.0 - 12.7 fL [facility] Platelets (Bld) [#/Vol] 355 10*3/uL 140 - 440 10*3/uL [facility] RBC (Bld) [#/Vol] 2.87 10*6/uL Low 4.40 - 5.9 0 10*6/uL [facility] WBC (Bld) [#/Vol] 11.5 10*3/uL High 3.6 - 10.7 10*3/uL [facility] Hemoglobin (Bld) [Mass/Vol]o n 01-24-2025 Hematocrit (Bld) [Volume fraction] 23 % Low 40.0 - 52.0 % [facility] Interpretation and review of laboratory results Abnormal [facility] Laboratory - Chemistry and C hemistry - challengeon 01-24-2025 Lactate [Moles/Vol] 0.9 mmol/L 0.5 - 2. 2 mmol/L [facility] Laboratory - Chemistry and C hemistry - challengeOrdered By: Farhat Simons on 01-24-2025 Beta hydroxybutyrate [Mass/Vol] 10.5 mg/dL High NINF - 2.8 mg/dL [facility] Laboratory - Chemistry and C hemistry - challengeOrdered By: Anu Graham on 01-24-2025 Magnesium [Mass/Vol] 2.3 mg/dL 1.6 - 2 .6 mg/dL [facility] Laboratory - Coagulationon 0 01-24-2025 PT Coag (Bld) [Time] 15.1 s High 9.0 - 12.0 s [facility] PT Coag (Bld) [Time] 15.6 s High 9.0 - 12.0 s [facility] Laboratory - Hematology and Cell countson 01-24-2025 Hemoglobin (Bld) [Mass/Vol] 7.3 g/dL Low 13.0 - 18.0 g/dL [facility] Magnesium [Mass/Vol]Ordered By: Anu Graham on 01-24-2025 Interpretation and review of laboratory results Normal [facility] No Panel Informationon 01-24 Interpretation and review of laboratory results Abnormal [facility] Interpretation and review of laboratory results Normal [facility] Interpretation and review of laboratory results Abnormal [facility] Blood Expiration Date S [facility] Crossmatch interpretation COMP [facility] Dispense Status Released from [employer] [facility] Product Blood Type 9500 [facility] PRODUCT CODE [id number] [facility] Unit ABO O [facility] Unit Number [id number] [facility] alth Unit RH Negative [facility] Unit Volume 300 mL [facility] No Panel InformationOrdered By: Farhat Simons on 01-24-2025 Interpretation and review of laboratory results Abnormal [facility] No Panel InformationOrdered By: Anu Graham on 01-24-2025 [facility] PT Coag (Bld) [Time]on 01-24 INR Coag (PPP) [Relative time] 1.5 {INR} High 0.9 - 1.1 [facility] INR Coag (PPP) [Relative time] 1.5 {INR} High 0.9 - 1.1 [facility] Interpretation and review of laboratory results Abnormal [facility] Phosphate [Moles/Vol]on 12-28 Phosphate [Mass/Vol] 5.1 mg/dL High 2.3 - 4 .7 mg/dL [facility] XR Chest Single viewon 01-24 [facility] Radiology Study observation (narrative) [facility] alth aPTT Coag (Bld) [Time]on aPTT Coag (PPP) [Time] 33.7 s High 20.0 - 30.5 s [facility] aPTT Coag (Bld) [Time]Ordere d By: Callie Steele on 01-24-2025 aPTT Coag (PPP) [Time] 114.7 s High 20.0 - 30.5 s [facility] Interpretation and review of laboratory results Abnormal [facility] Basic metabolic 1998 panelon 01-23-2025 Anion gap [Moles/Vol] 13 mmol/L 3 - 13 mmol/L [facility] Calcium [Mass/Vol] 9.4 mg/dL 8.4 - 10. 2 mg/dL [facility] Chloride [Moles/Vol] 102 mmol/L 98 - 10 7 mmol/L [facility] CO2 [Moles/Vol] 25 mmol/L 22 - 29 mmol/L [facility] Creatinine [Mass/Vol] 2.34 mg/dL High 0.72 - 1.25 mg/dL [facility] GFR/1.73 sq M.predicted (S/P/Bld) [Vol rate/Area] 31.3 mL/min Low - PINF [facility] Glucose [Mass/Vol] 80 mg/dL 74 - 100 mg/dL [facility] Interpretation and review of laboratory results Abnormal [facility] Potassium [Moles/Vol] 3.4 mmol/L Low 3.5 - 5.1 mmol/L [facility] Sodium [Moles/Vol] 140 mmol/L 136 - 145 mmol/L [facility] Urea nitrogen [Mass/Vol] 22 mg/dL 9 - 23 mg/d L [facility] CBC W Auto Differential pane l (Bld)on 01-23-2025 Basophils (Bld) [#/Vol] 0.1 10*3/uL 0.0 - 0.2 10*3/uL [facility] Basophils/100 WBC (Bld) 1 % 0.0 - 2.0 % [facility] Eosinophils (Bld) [#/Vol] 0.7 10*3/uL High 0.0 - 0.5 10*3/uL [facility] Eosinophils/100 WBC (Bld) 6.8 % High 0.0 - 6.0 % [facility] Erythrocyte distribution width (RBC) [Ratio] 18.8 % High 11.5 - 15.0 % [facility] Hematocrit (Bld) [Volume fraction] 25.3 % Low 40.0 - 52.0 % [facility] Hemoglobin (Bld) [Mass/Vol] 7.9 g/dL Low 13.0 - 18.0 g/dL [facility] Immature granulocytes (Bld) [#/Vol] 0.1 10*3/uL High NINF - 0.1 10*3/uL [facility] Immature granulocytes/100 WBC (Bld) 1.1 % 0.0 - 2.0 % [facility] Interpretation and review of laboratory results Abnormal [facility] Lymphocytes (Bld) [#/Vol] 1.5 10*3/uL 1.0 - 4.3 10*3/uL [facility] Lymphocytes/100 WBC (Bld) 13.7 % Low 15.0 - 45.0 % [facility] MCH (RBC) [Entitic mass] 27.9 pg 26. 0 - 34.0 pg [facility] MCHC (RBC) [Mass/Vol] 31.2 % 30.5 - 36.0 % [facility] MCV (RBC) [Entitic vol] 89.4 fL 77.0 - 99.0 fL [facility] Monocytes (Bld) [#/Vol] 1.5 10*3/uL High 0.0 - 0.9 10*3/uL [facility] Monocytes/100 WBC (Bld) 13.7 % High 5.0 - 13.0 % [facility] Neutrophils (Bld) [#/Vol] 7 10*3/uL 1.8 - 7.5 10*3/uL [facility] Neutrophils/100 WBC (Bld) 63.7 % 38.0 - 82.0 % [facility] Nucleated RBC/100 WBC (Bld) [Ratio] 0 % [facility] Platelet mean volume (Bld) [Entitic vol] 9.4 fL 9.0 - 12.7 fL [facility] Platelets (Bld) [#/Vol] 346 10*3/uL 140 - 440 10*3/uL [facility] RBC (Bld) [#/Vol] 2.83 10*6/uL Low 4.40 - 5.9 0 10*6/uL [facility] WBC (Bld) [#/Vol] 10.9 10*3/uL High 3.6 - 10.7 10*3/uL [facility] Basophils (Bld) [#/Vol] 0.1 10*3/uL 0.0 - 0.2 10*3/uL [facility] Basophils/100 WBC (Bld) 1.1 % 0.0 - 2.0 % [facility] Eosinophils (Bld) [#/Vol] 0.9 10*3/uL High 0.0 - 0.5 10*3/uL [facility] Eosinophils/100 WBC (Bld) 8 % High 0.0 - 6.0 % [facility] Erythrocyte distribution width (RBC) [Ratio] 18.5 % High 11.5 - 15.0 % [facility] Hematocrit (Bld) [Volume fraction] 23.4 % Low 40.0 - 52.0 % [facility] Hemoglobin (Bld) [Mass/Vol] 7.3 g/dL Low 13.0 - 18.0 g/dL [facility] Immature granulocytes (Bld) [#/Vol] 0.1 10*3/uL High NINF - 0.1 10*3/uL [facility] Immature granulocytes/100 WBC (Bld) 1.1 % 0.0 - 2.0 % [facility] Interpretation and review of laboratory results Abnormal [facility] Lymphocytes (Bld) [#/Vol] 1.4 10*3/uL 1.0 - 4.3 10*3/uL [facility] Lymphocytes/100 WBC (Bld) 12.2 % Low 15.0 - 45.0 % [facility] MCH (RBC) [Entitic mass] 27.7 pg 26. 0 - 34.0 pg [facility] MCHC (RBC) [Mass/Vol] 31.2 % 30.5 - 36.0 % [facility] MCV (RBC) [Entitic vol] 88.6 fL 77.0 - 99.0 fL [facility] Monocytes (Bld) [#/Vol] 1.4 10*3/uL High 0.0 - 0.9 10*3/uL [facility] Monocytes/100 WBC (Bld) 12.9 % 5.0 - 13.0 % [facility] Neutrophils (Bld) [#/Vol] 7.2 10*3/uL 1.8 - 7.5 10*3/uL [facility] Neutrophils/100 WBC (Bld) 64.7 % 38.0 - 82.0 % [facility] Nucleated RBC/100 WBC (Bld) [Ratio] 0 % [facility] Platelet mean volume (Bld) [Entitic vol] 9.1 fL 9.0 - 12.7 fL [facility] Platelets (Bld) [#/Vol] 345 10*3/uL 140 - 440 10*3/uL [facility] RBC (Bld) [#/Vol] 2.64 10*6/uL Low 4.40 - 5.9 0 10*6/uL [facility] WBC (Bld) [#/Vol] 11.1 10*3/uL High 3.6 - 10.7 10*3/uL [facility] Hemoglobin (Bld) [Mass/Vol]o n 01-23-2025 Hematocrit (Bld) [Volume fraction] 25.1 % Low 40.0 - 52.0 % [facility] Interpretation and review of laboratory results Abnormal [facility] Laboratory - Chemistry and C hemistry - challengeon 01-23-2025 Glucose [Mass/Vol] 113 mg/dL High 70 - 100 mg/dL [facility] Glucose [Mass/Vol] 92 mg/dL 70 - 100 mg/dL [facility] Magnesium [Mass/Vol] 2.1 mg/dL 1.6 - 2 .6 mg/dL [facility] Laboratory - Coagulationon 0 01-23-2025 aPTT Coag (PPP) [Time] 30.6 s High 20.0 - 30.5 s [facility] INR Coag (PPP) [Relative time] 1.6 {INR} High 0.9 - 1.1 [facility] PT Coag (Bld) [Time] 16.1 s High 9.0 - 12.0 s [facility] PT Coag (Bld) [Time] 20 s High 9.0 - 12.0 s [facility] Laboratory - Hematology and Cell countson 01-23-2025 Hemoglobin (Bld) [Mass/Vol] 7.9 g/dL Low 13.0 - 18.0 g/dL [facility] Magnesium [Mass/Vol]on 01-23 Interpretation and review of laboratory results Normal [facility] No Panel Informationon 01-23 Interpretation and review of laboratory results Abnormal [facility] Interpretation and review of laboratory results Abnormal [facility] Interpretation and review of laboratory results Normal [facility] PT Coag (Bld) [Time]on 01-23 INR Coag (PPP) [Relative time] 2 {INR} High 0.9 - 1.1 [facility] Interpretation and review of laboratory results Abnormal [facility] Phosphate [Moles/Vol]Ordered By: Jenni Romano on 01-23-2025 Interpretation and review of laboratory results Normal [facility] Phosphate [Mass/Vol] 4.5 mg/dL 2.3 - 4 .7 mg/dL [facility] Basic metabolic 1998 panelOr dered By: Nathaly Dobson on 01-22-2025 Anion gap [Moles/Vol] 13 mmol/L 3 - 13 mmol/L [facility] Calcium [Mass/Vol] 9.8 mg/dL 8.4 - 10. 2 mg/dL [facility] Chloride [Moles/Vol] 94 mmol/L Low 98 - 10 7 mmol/L [facility] CO2 [Moles/Vol] 25 mmol/L 22 - 29 mmol/L [facility] Creatinine [Mass/Vol] 4.18 mg/dL High 0.72 - 1.25 mg/dL [facility] GFR/1.73 sq M.predicted (S/P/Bld) [Vol rate/Area] 15.6 mL/min Low - PINF [facility] Glucose [Mass/Vol] 70 mg/dL Low 74 - 100 mg/dL [facility] Interpretation and review of laboratory results Abnormal [facility] Potassium [Moles/Vol] 4.4 mmol/L 3.5 - 5.1 mmol/L [facility] Sodium [Moles/Vol] 132 mmol/L Low 136 - 145 mmol/L [facility] Urea nitrogen [Mass/Vol] 53 mg/dL High 9 - 23 mg/d L [facility] CBC W Auto Differential pane l (Bld)Ordered By: Tiffanie Chand on 01-22-2025 Basophils (Bld) [#/Vol] 0.1 10*3/uL 0.0 - 0.2 10*3/uL [facility] Basophils/100 WBC (Bld) 0.8 % 0.0 - 2.0 % [facility] Eosinophils (Bld) [#/Vol] 0.7 10*3/uL High 0.0 - 0.5 10*3/uL [facility] Eosinophils/100 WBC (Bld) 6.1 % High 0.0 - 6.0 % [facility] Erythrocyte distribution width (RBC) [Ratio] 18.4 % High 11.5 - 15.0 % [facility] Hematocrit (Bld) [Volume fraction] 23.9 % Low 40.0 - 52.0 % [facility] Hemoglobin (Bld) [Mass/Vol] 7.4 g/dL Low 13.0 - 18.0 g/dL [facility] Immature granulocytes (Bld) [#/Vol] 0.1 10*3/uL High NINF - 0.1 10*3/uL [facility] Immature granulocytes/100 WBC (Bld) 1.1 % 0.0 - 2.0 % [facility] Interpretation and review of laboratory results Abnormal [facility] Lymphocytes (Bld) [#/Vol] 1 10*3/uL 1.0 - 4.3 10*3/uL [facility] Lymphocytes/100 WBC (Bld) 9.7 % Low 15.0 - 45.0 % [facility] MCH (RBC) [Entitic mass] 27.5 pg 26. 0 - 34.0 pg [facility] MCHC (RBC) [Mass/Vol] 31 % 30.5 - 36.0 % [facility] MCV (RBC) [Entitic vol] 88.8 fL 77.0 - 99.0 fL [facility] Monocytes (Bld) [#/Vol] 1.5 10*3/uL High 0.0 - 0.9 10*3/uL [facility] Monocytes/100 WBC (Bld) 14.5 % High 5.0 - 13.0 % [facility] Neutrophils (Bld) [#/Vol] 7.2 10*3/uL 1.8 - 7.5 10*3/uL [facility] Neutrophils/100 WBC (Bld) 67.8 % 38.0 - 82.0 % [facility] Nucleated RBC/100 WBC (Bld) [Ratio] 0 % [facility] Platelet mean volume (Bld) [Entitic vol] 8.2 fL Low 9.0 - 12.7 fL [facility] Platelets (Bld) [#/Vol] 292 10*3/uL 140 - 440 10*3/uL [facility] RBC (Bld) [#/Vol] 2.69 10*6/uL Low 4.40 - 5.9 0 10*6/uL [facility] WBC (Bld) [#/Vol] 10.6 10*3/uL 3.6 - 10.7 10*3/uL [facility] CBC W Auto Differential pane l (Bld)on 01-22-2025 Basophils (Bld) [#/Vol] 0.1 10*3/uL 0.0 - 0.2 10*3/uL [facility] Basophils/100 WBC (Bld) 1.1 % 0.0 - 2.0 % [facility] Eosinophils (Bld) [#/Vol] 0.8 10*3/uL High 0.0 - 0.5 10*3/uL [facility] Eosinophils/100 WBC (Bld) 7.9 % High 0.0 - 6.0 % [facility] Erythrocyte distribution width (RBC) [Ratio] 18.6 % High 11.5 - 15.0 % [facility] Hematocrit (Bld) [Volume fraction] 25.1 % Low 40.0 - 52.0 % [facility] Hemoglobin (Bld) [Mass/Vol] 8 g/dL Low 13.0 - 18.0 g/dL [facility] [employer] Immature granulocytes (Bld) [#/Vol] 0.1 10*3/uL High NINF - 0.1 10*3/uL [facility] Immature granulocytes/100 WBC (Bld) 0.8 % 0.0 - 2.0 % [facility] Interpretation and review of laboratory results Abnormal [facility] Lymphocytes (Bld) [#/Vol] 1.5 10*3/uL 1.0 - 4.3 10*3/uL [facility] Lymphocytes/100 WBC (Bld) 14.1 % Low 15.0 - 45.0 % [facility] MCH (RBC) [Entitic mass] 27.7 pg 26. 0 - 34.0 pg [facility] MCHC (RBC) [Mass/Vol] 31.9 % 30.5 - 36.0 % [facility] MCV (RBC) [Entitic vol] 86.9 fL 77.0 - 99.0 fL [facility] [employer] Monocytes (Bld) [#/Vol] 1.5 10*3/uL High 0.0 - 0.9 10*3/uL [facility] Monocytes/100 WBC (Bld) 14 % High 5.0 - 13.0 % [facility] Neutrophils (Bld) [#/Vol] 6.6 10*3/uL 1.8 - 7.5 10*3/uL [facility] Neutrophils/100 WBC (Bld) 62.1 % 38.0 - 82.0 % [facility] Nucleated RBC/100 WBC (Bld) [Ratio] 0 % [facility] [employer] Platelet mean volume (Bld) [Entitic vol] 8.8 fL Low 9.0 - 12.7 fL [facility] Platelets (Bld) [#/Vol] 330 10*3/uL 140 - 440 10*3/uL [facility] RBC (Bld) [#/Vol] 2.89 10*6/uL Low 4.40 - 5.9 0 10*6/uL [facility] WBC (Bld) [#/Vol] 10.6 10*3/uL 3.6 - 10.7 10*3/uL [facility] Coagulation index TEG Qn (Bl d)Ordered By: Santhosh Acevedo on 01-22-2025 APTEM A10 72 mm High 50 - 70 mm [facility] APTEM A20 75 mm High 50 - 70 mm [facility] Clot angle TEG (Bld) [Angle] 82 High [facility] Clot formation.extrinsic coagulation system activated Rotational TEG (Bld) [Time] 200 s High 43 - 82 s [facility] Clot formation.extrinsic coagulation system activated Rotational TEG (Bld) [Time] 42 s Low 48 - 127 s [facility] Clot formation.extrinsic coagulation system activated Rotational TEG (Bld) [Time] 82 High [facility] Clot formation.extrinsic coagulation system activated Rotational TEG (Bld) [Time] 73 mm High 50 - 70 mm [facility] Clot formation.extrinsic coagulation system activated Rotational TEG (Bld) [Time] 76 mm High 52 - 70 mm [facility] Clot formation.extrinsic coagulation system activated.fibrinolysis suppressed Rotational TEG (Bld) [Time] 44 s Low 48 - 127 s [facility] Clot formation.extrinsic coagulation system activated.fibrinolysis suppressed Rotational TEG (Bld) [Time] 33 mm [facility] Clot formation.extrinsic coagulation system activated.fibrinolysis suppressed Rotational TEG (Bld) [Time] 35 mm [facility] Clot formation.extrinsic coagulation system activated.fibrinolysis suppressed Rotational TEG (Bld) [Time] 36 mm High 7 - 24 mm [facility] Clotting time.extrinsic coagulation system activated.fibrinolysis suppressed Rotational TEG (Bld) 232 s High 43 - 82 s [facility] Interpretation and review of laboratory results Abnormal [facility] Maximum clot firmness.extrinsic coagulation system activated.fibrinolysis suppressed Rotational TEG (Bld) [Length] 75 mm High 52 - 70 mm [facility] Hemoglobin (Bld) [Mass/Vol]o n 01-22-2025 Hematocrit (Bld) [Volume fraction] 24.5 % Low 40.0 - 52.0 % [facility] Interpretation and review of laboratory results Abnormal [facility] Hepatic function 2000 panelo n 01-22-2025 Albumin [Mass/Vol] 2.2 g/dL Low 3.5 - 5.0 g/dL [facility] ALP [Catalytic activity/Vol] 274 U/L High 40 - 150 U/L [facility] ALT [Catalytic activity/Vol] 44 U/L High NINF - 40 U/L [facility] AST [Catalytic activity/Vol] 51 U/L High NINF - 34 U/L [facility] Bilirubin [Mass/Vol] 0.9 mg/dL NINF - 1.2 mg/dL [facility] Bilirubin.conjugated [Mass/Vol] 0.7 mg/dL High NINF - 0.5 mg/dL [facility] Protein [Mass/Vol] 7.6 g/dL 6.4 - 8.3 g/dL [facility] Laboratory - Chemistry and C hemistry - challengeon 01-22-2025 Glucose [Mass/Vol] 101 mg/dL High 70 - 100 mg/dL [facility] Glucose [Mass/Vol] 77 mg/dL 70 - 100 mg/dL [facility] Glucose [Mass/Vol] 81 mg/dL 70 - 100 mg/dL [facility] Magnesium [Mass/Vol] 2.6 mg/dL 1.6 - 2 .6 mg/dL [facility] Glucose [Mass/Vol] 82 mg/dL 70 - 100 mg/dL [facility] Laboratory - Coagulationon 0 01-22-2025 aPTT Coag (PPP) [Time] 42.7 s High 20.0 - 30.5 s [facility] INR Coag (PPP) [Relative time] 3.1 {INR} High 0.9 - 1.1 [facility] PT Coag (Bld) [Time] 31 s High 9.0 - 12.0 s [facility] Fibrin D-dimer FEU (PPP) [Mass/Vol] 14.21 mg/L High NINF - 0.50 mg/L [facility] Fibrinogen Coag (PPP) [Mass/Vol] 436 mg/dL High 200 - 400 mg/dL [facility] Laboratory - CoagulationOrde red By: Maggy Lancaster on 01-22-2025 aPTT Coag (PPP) [Time] 48.1 s High 20.0 - 30.5 s [facility] INR Coag (PPP) [Relative time] 5.5 {INR} Critically high 0.9 - 1.1 [facility] PT Coag (Bld) [Time] 52.6 s High 9.0 - 12.0 s [facility] Laboratory - CoagulationOrde red By: Michelle Olmstead on 01-22-2025 PT Coag (Bld) [Time] 75.4 s High 9.0 - 12.0 s [facility] Laboratory - Hematology and Cell countson 01-22-2025 Hemoglobin (Bld) [Mass/Vol] 7.7 g/dL Low 13.0 - 18.0 g/dL [facility] Magnesium [Mass/Vol]on 01-22 Interpretation and review of laboratory results Normal [facility] No Panel Informationon 01-22 Interpretation and review of laboratory results Abnormal [facility] Interpretation and review of laboratory results Abnormal [facility] Blood Expiration Date [id number] [facility] Dispense Status Transfused [facility] Product Blood Type 6200 [facility] PRODUCT CODE [id number] [facility] Unit ABO A [facility] Unit Number [id number] [facility] RH Positive [facility] Unit Volume 209 ml [facility] Interpretation and review of laboratory results Normal [facility] Interpretation and review of laboratory results Normal [facility] Interpretation and review of laboratory results Abnormal [facility] Interpretation and review of laboratory results Abnormal [facility] Interpretation and review of laboratory results Normal [facility] No Panel InformationOrdered By: Maggy Lancaster on 01-22-2025 Interpretation and review of laboratory results Abnormal [facility] PT Coag (Bld) [Time]Ordered By: Michelle Olmstead on 01-22-2025 INR Coag (PPP) [Relative time] 8.1 {INR} Critically high 0.9 - 1.1 [facility] Interpretation and review of laboratory results Abnormal [facility] Phosphate [Moles/Vol]on 12-27 Phosphate [Mass/Vol] 6.8 mg/dL High 2.3 - 4 .7 mg/dL [facility] aPTT Coag (Bld) [Time]on aPTT Coag (PPP) [Time] 46 s High 20.0 - 30.5 s [facility] Basic metabolic 1998 panelOr dered By: Jarred José on 01-21-2025 Anion gap [Moles/Vol] 15 mmol/L High 3 - 13 mmol/L [facility] Calcium [Mass/Vol] 9.9 mg/dL 8.4 - 10. 2 mg/dL [facility] Chloride [Moles/Vol] 96 mmol/L Low 98 - 10 7 mmol/L [facility] CO2 [Moles/Vol] 24 mmol/L 22 - 29 mmol/L [facility] Creatinine [Mass/Vol] 2.99 mg/dL High 0.72 - 1.25 mg/dL [facility] GFR/1.73 sq M.predicted (S/P/Bld) [Vol rate/Area] 23.3 mL/min Low - PINF [facility] Glucose [Mass/Vol] 60 mg/dL Low 74 - 100 mg/dL [facility] Interpretation and review of laboratory results Abnormal [facility] Potassium [Moles/Vol] 4.3 mmol/L 3.5 - 5.1 mmol/L [facility] Sodium [Moles/Vol] 135 mmol/L Low 136 - 145 mmol/L [facility] Urea nitrogen [Mass/Vol] 46 mg/dL High 9 - 23 mg/d L [facility] CBC W Auto Differential pane l (Bld)on 01-21-2025 Basophils (Bld) [#/Vol] 0.1 10*3/uL 0.0 - 0.2 10*3/uL [facility] Basophils/100 WBC (Bld) 1 % 0.0 - 2.0 % [facility] Eosinophils (Bld) [#/Vol] 0.4 10*3/uL 0.0 - 0.5 10*3/uL [facility] Eosinophils/100 WBC (Bld) 3.8 % 0.0 - 6.0 % [facility] Erythrocyte distribution width (RBC) [Ratio] 18.6 % High 11.5 - 15.0 % [facility] Hematocrit (Bld) [Volume fraction] 27.3 % Low 40.0 - 52.0 % [facility] Hemoglobin (Bld) [Mass/Vol] 8.3 g/dL Low 13.0 - 18.0 g/dL [facility] Immature granulocytes (Bld) [#/Vol] 0.1 10*3/uL High NINF - 0.1 10*3/uL [facility] Immature granulocytes/100 WBC (Bld) 1.2 % 0.0 - 2.0 % [facility] Interpretation and review of laboratory results Abnormal [facility] Lymphocytes (Bld) [#/Vol] 1.7 10*3/uL 1.0 - 4.3 10*3/uL [facility] Lymphocytes/100 WBC (Bld) 16.5 % 15.0 - 45.0 % [facility] MCH (RBC) [Entitic mass] 27 pg 26. 0 - 34.0 pg [facility] MCHC (RBC) [Mass/Vol] 30.4 % Low 30.5 - 36.0 % [facility] MCV (RBC) [Entitic vol] 88.9 fL 77.0 - 99.0 fL [facility] Monocytes (Bld) [#/Vol] 1.4 10*3/uL High 0.0 - 0.9 10*3/uL [facility] Monocytes/100 WBC (Bld) 14.3 % High 5.0 - 13.0 % [facility] Neutrophils (Bld) [#/Vol] 6.4 10*3/uL 1.8 - 7.5 10*3/uL [facility] Neutrophils/100 WBC (Bld) 63.2 % 38.0 - 82.0 % [facility] Nucleated RBC/100 WBC (Bld) [Ratio] 0 % [facility] Platelet mean volume (Bld) [Entitic vol] 8.7 fL Low 9.0 - 12.7 fL [facility] Platelets (Bld) [#/Vol] 365 10*3/uL 140 - 440 10*3/uL [facility] RBC (Bld) [#/Vol] 3.07 10*6/uL Low 4.40 - 5.9 0 10*6/uL [facility] WBC (Bld) [#/Vol] 10.1 10*3/uL 3.6 - 10.7 10*3/uL [facility] CBC panel Auto (Bld)Ordered By: Piedad Alvarado on 01-21-2025 Erythrocyte distribution width (RBC) [Ratio] 18.6 % High 11.5 - 15.0 % [facility] Hematocrit (Bld) [Volume fraction] 25.3 % Low 40.0 - 52.0 % [facility] Hemoglobin (Bld) [Mass/Vol] 8 g/dL Low 13.0 - 18.0 g/dL [facility] Interpretation and review of laboratory results Abnormal [facility] MCH (RBC) [Entitic mass] 27.7 pg 26. 0 - 34.0 pg [facility] MCHC (RBC) [Mass/Vol] 31.6 % 30.5 - 36.0 % [facility] MCV (RBC) [Entitic vol] 87.5 fL 77.0 - 99.0 fL [facility] Platelet mean volume (Bld) [Entitic vol] 9.1 fL 9.0 - 12.7 fL [facility] Platelets (Bld) [#/Vol] 353 10*3/uL 140 - 440 10*3/uL [facility] RBC (Bld) [#/Vol] 2.89 10*6/uL Low 4.40 - 5.9 0 10*6/uL [facility] WBC (Bld) [#/Vol] 9.2 10*3/uL 3.6 - 10.7 10*3/uL [facility] Hemoglobin (Bld) [Mass/Vol]o n 01-21-2025 Hematocrit (Bld) [Volume fraction] 22.4 % Low 40.0 - 52.0 % [facility] Interpretation and review of laboratory results Abnormal [facility] Laboratory - Chemistry and C hemistry - challengeon 01-21-2025 Glucose [Mass/Vol] 86 mg/dL 70 - 100 mg/dL [facility] Glucose [Mass/Vol] 92 mg/dL 70 - 100 mg/dL [facility] Glucose [Mass/Vol] 92 mg/dL 70 - 100 mg/dL [facility] Glucose [Mass/Vol] 107 mg/dL High 70 - 100 mg/dL [facility] Glucose [Mass/Vol] 129 mg/dL High 70 - 100 mg/dL [facility] Glucose [Mass/Vol] 67 mg/dL Low 70 - 100 mg/dL [facility] Magnesium [Mass/Vol] 2.5 mg/dL 1.6 - 2 .6 mg/dL [facility] Glucose [Mass/Vol] 74 mg/dL 70 - 100 mg/dL [facility] Laboratory - CoagulationOrde red By: Treva Mcfarland on 01-21-2025 PT Coag (Bld) [Time] 73.5 s High 9.0 - 12.0 s [facility] Laboratory - Hematology and Cell countson 01-21-2025 Hemoglobin (Bld) [Mass/Vol] 7.1 g/dL Low 13.0 - 18.0 g/dL [facility] Magnesium [Mass/Vol]on 01-21 Interpretation and review of laboratory results Normal [facility] No Panel Informationon 01-21 Interpretation and review of laboratory results Normal [facility] Interpretation and review of laboratory results Normal [facility] Interpretation and review of laboratory results Normal [facility] Interpretation and review of laboratory results Abnormal [facility] Interpretation and review of laboratory results Abnormal [facility] Interpretation and review of laboratory results Abnormal [facility] Interpretation and review of laboratory results Normal [facility] PT Coag (Bld) [Time]Ordered By: Treva Mcfarland on 01-21-2025 INR Coag (PPP) [Relative time] 7.9 {INR} Critically high 0.9 - 1.1 [facility] Interpretation and review of laboratory results Abnormal [facility] Phosphate [Moles/Vol]on 12-27 Interpretation and review of laboratory results Abnormal [facility] Phosphate [Mass/Vol] 5.3 mg/dL High 2.3 - 4 .7 mg/dL [facility] Basic metabolic 1998 panelon 01-20-2025 Anion gap [Moles/Vol] 15 mmol/L High 3 - 13 mmol/L [facility] Calcium [Mass/Vol] 9.2 mg/dL 8.4 - 10. 2 mg/dL [facility] Chloride [Moles/Vol] 98 mmol/L 98 - 10 7 mmol/L [facility] CO2 [Moles/Vol] 22 mmol/L 22 - 29 mmol/L [facility] Creatinine [Mass/Vol] 4.31 mg/dL High 0.72 - 1.25 mg/dL [facility] GFR/1.73 sq M.predicted (S/P/Bld) [Vol rate/Area] 15 mL/min Low - PINF [facility] Glucose [Mass/Vol] 68 mg/dL Low 74 - 100 mg/dL [facility] Interpretation and review of laboratory results Abnormal [facility] Potassium [Moles/Vol] 4.8 mmol/L 3.5 - 5.1 mmol/L [facility] Sodium [Moles/Vol] 135 mmol/L Low 136 - 145 mmol/L [facility] Urea nitrogen [Mass/Vol] 91 mg/dL High 9 - 23 mg/d L [facility] Blood type and Crossmatch pa freida (Bld)on 01-20-2025 ABO group Nom (Bld) O [facility] Blood group antibody screen GEL Ql Negative [facility] D Ag Ql (RBC) Negative [facility] CBC W Auto Differential pane l (Bld)Ordered By: Haley Vitale on 01-20-2025 Basophils (Bld) [#/Vol] 0.1 10*3/uL 0.0 - 0.2 10*3/uL [facility] Basophils/100 WBC (Bld) 1.1 % 0.0 - 2.0 % [facility] Eosinophils (Bld) [#/Vol] 0.5 10*3/uL 0.0 - 0.5 10*3/uL [facility] Eosinophils/100 WBC (Bld) 4.5 % 0.0 - 6.0 % [facility] Erythrocyte distribution width (RBC) [Ratio] 18.3 % High 11.5 - 15.0 % [facility] Hematocrit (Bld) [Volume fraction] 21.3 % Low 40.0 - 52.0 % [facility] Hemoglobin (Bld) [Mass/Vol] 6.6 g/dL Critically low 13.0 - 18.0 g/dL [facility] Immature granulocytes (Bld) [#/Vol] 0.1 10*3/uL High NINF - 0.1 10*3/uL [facility] Immature granulocytes/100 WBC (Bld) 1 % 0.0 - 2.0 % [facility] Interpretation and review of laboratory results Abnormal [facility] Lymphocytes (Bld) [#/Vol] 1.2 10*3/uL 1.0 - 4.3 10*3/uL [facility] Lymphocytes/100 WBC (Bld) 11.6 % Low 15.0 - 45.0 % [facility] MCH (RBC) [Entitic mass] 27.4 pg 26. 0 - 34.0 pg [facility] MCHC (RBC) [Mass/Vol] 31 % 30.5 - 36.0 % [facility] MCV (RBC) [Entitic vol] 88.4 fL 77.0 - 99.0 fL [facility] Monocytes (Bld) [#/Vol] 1.1 10*3/uL High 0.0 - 0.9 10*3/uL [facility] Monocytes/100 WBC (Bld) 10.1 % 5.0 - 13.0 % [facility] Neutrophils (Bld) [#/Vol] 7.5 10*3/uL 1.8 - 7.5 10*3/uL [facility] Neutrophils/100 WBC (Bld) 71.7 % 38.0 - 82.0 % [facility] Nucleated RBC/100 WBC (Bld) [Ratio] 0 % [facility] Platelet mean volume (Bld) [Entitic vol] 9 fL 9.0 - 12.7 fL [facility] Platelets (Bld) [#/Vol] 279 10*3/uL 140 - 440 10*3/uL [facility] RBC (Bld) [#/Vol] 2.41 10*6/uL Low 4.40 - 5.9 0 10*6/uL [facility] WBC (Bld) [#/Vol] 10.5 10*3/uL 3.6 - 10.7 10*3/uL [facility] CT Abdomen and Pelvis W cont rast Dimitrios 01-20-2025 [facility] RAD[facility] Radiology Study observation (narrative) [facility] CT Abdomen and Pelvis W cont rast IVOrdered By: Karly Parker on 01-20-2025 [facility] Work Phone: Hemoglobin (Bld) [Mass/Vol]o n 01-20-2025 Hematocrit (Bld) [Volume fraction] 25.8 % Low 40.0 - 52.0 % [facility] Interpretation and review of laboratory results Abnormal [facility] Hematocrit (Bld) [Volume fraction] 25.7 % Low 40.0 - 52.0 % [facility] Interpretation and review of laboratory results Abnormal [facility] Hematocrit (Bld) [Volume fraction] 25.8 % Low 40.0 - 52.0 % [facility] Interpretation and review of laboratory results Abnormal [facility] Laboratory - Chemistry and C hemistry - challengeon 01-20-2025 Magnesium [Mass/Vol] 2.8 mg/dL High 1.6 - 2 .6 mg/dL [facility] Laboratory - Hematology and Cell countson 01-20-2025 Hemoglobin (Bld) [Mass/Vol] 8.3 g/dL Low 13.0 - 18.0 g/dL [facility] Hemoglobin (Bld) [Mass/Vol] 8.2 g/dL Low 13.0 - 18.0 g/dL [facility] Hemoglobin (Bld) [Mass/Vol] 8.2 g/dL Low 13.0 - 18.0 g/dL [facility] Magnesium [Mass/Vol]on 01-20 [facility] No Panel Informationon 01-20 Interpretation and review of laboratory results Abnormal [facility] Phosphate [Moles/Vol]on 12-27 Phosphate [Mass/Vol] 6.1 mg/dL High 2.3 - 4 .7 mg/dL [facility] No Panel Informationon 01-19 P [place] 69 degrees [facility] MS Interval 148 ms [facility] QRS [place] 93 degrees [facility] QRSD Interval 113 ms [facility] Interval 413 ms [facility] QTC Interval 515 ms [facility] T Wave [place] 87 degrees [facility] CV EPIPHANY [facility] 4h Troponin HS (Serial 3rd Troponin) 94 ng/L High NINF - 35 ng/L [facility] Interpretation and review of laboratory results Abnormal [facility] 2h Troponin HS (Serial 2nd Troponin) 106 ng/L High NINF - 35 ng/L [facility] Interpretation and review of laboratory results Abnormal [facility] Vital signson 01-19-2025 Heart rate 93 /min bpm [facility] Airwayon 10-12-2024 Rudolph German CRNA 10/12/2024 7:56 AM Airway Date/Time: 10/12/2024 7:38 AM Urgency: scheduled Airway not difficult General Information and Staff Patient location during procedure: Procedural Anesthesiologist: Vincent Wilson MD Resident/FOREIGN [employer]OD SPECIALTY COOK: Rudolph German CRNA Performed: anesthesiologist Indications and [...] 21 Number of attempts at approach: 1 [facility] Arterial Lineon 10-12-2024 Rudolph German CRNA [...] procedure well with no complications. Staffing Performed: FOREIGN [employer]OD SPECIALTY COOK Resident/FOREIGN [employer] SPECIALTY COOK: Rudolph German CRNA [facility] Central Venous Lineon 2024 Rudolph German [...] during the procedure: no complications. Staffing Performed: FOREIGN [employer]OD SPECIALTY COOK Resident/FOREIGN FOOD SPECIALTY COOK: Rudolph German, FOREIGN FOOD SPECIALTY COOK [facility] No Panel Informationon 10-[address] [facility] [address] Head WO contraston 2024 No acute intracranial hemorrhage or large territorial infarct. Nonspecific small air locules within the scalp adjacent to the right temporal bone and within the right rn advice space. Pneumatized secretions within the maxillary sinuses may correspond with acute sinusitis in the appropriate clinical setting. Report Dictated on Electronically Signed By: Yvonne Abraham DO Electronically Signed Date/Time: 10/03/2024 2:14 PM [facility] Social [employer] SYSTEM Patient Name: JUN SNYDER : 1965 [...] right temporal bone and within the right rn advice space. [employer] Yvonne Abraham DO - 10/03/2024 Patient Name: [...] right temporal bone and within the right rn advice space. IMPRESSION: No acute intracranial hemorrhage or large territorial infarct. Nonspecific small air locules within the scalp adjacent to the right temporal bone and within the right rn advice space. Pneumatized secretions within the maxillary sinuses may correspond with acute sinusitis in the appropriate clinical setting. Report Dictated on Electronically Signed By: Yvonne Abraham DO Electronically Signed Date/Time: 10/03/2024 2:14 PM [facility] Radiology Study observation (narrative) [facility] alth CT Head WO contrastOrdered B y: Yvonne Abraham on 10-03-2024 [facility] Work Phone: XR Chest Single viewon 10-03 No focal consolidation or pulmonary edema. Report Dictated on Electronically Signed By: Bob Ken MD Electronically Signed Date/Time: 10/03/2024 12:22 PM [facility] [employer] SYSTEM Patient Name: JUN SNYDER : 1965 [...] change of the thoracic spine is noted. [facility] Bob Ken MD - 10/03/2024 Patient [...] Electronically Signed Date/Time: 10/03/2024 12:22 PM EST [facility] Radiology Study observation (narrative) [facility] XR Chest Single viewOrdered By: Bob Ken on 10-03-2024 [facility] Work Phone: ECG 12 leadon 08-28-2024 Sinus Rhythm -Incomplete right bundle branch block. -Left atrial enlargement. Voltage criteria for LVH (S(V1)+R(V6) exceeds 3.50 mV). -ST depression -Seen with left ventricular hypertrophy (strain) -consider ischemia. [facility] Patricia 04-12-2024 CNPN Telephone (TXCTGL) JUN SNYDER ([id number]) 1965 M Date Time Provider Department 04/12/24 [...] Status:Closed by LANIE LUIS on 04/12/24 Normal [facility] ECG 12 leadon 11-12-2023 Sinus Rhythm -Left atrial enlargement. IRBBB LVH with repolarization ABNORMAL [facility] ECG 12 leadOrdered By: Michaela Coombs on 11-12-2023 [facility] Work Phone: Basic metabolic 1998 panelon 08-17-2023 Anion gap [Moles/Vol] 15 mmol/L High 3 - 13 mmol/L [facility] Calcium [Mass/Vol] 8.7 mg/dL 8.4 - 10. 4 mg/dL [facility] Chloride [Moles/Vol] 94 mmol/L Low 98 - 10 7 mmol/L [facility] CO2 [Moles/Vol] 26 mmol/L 22 - 30 mmol/L [facility] Creatinine [Mass/Vol] 6.78 mg/dL High 0.66 - 1.25 mg/dL [facility] GFR/1.73 sq M.predicted MDRD (S/P/Bld) [Vol rate/Area] 8.8 mL/min/{1.73_m2} Low - [facility]F [facility] Comment on above: Calculation based on the Chronic Kidney Disease Epidemiology Collaboration (CKD-EPI) equation refit without adjustment for race Glucose [Mass/Vol] 102 mg/dL High 70 - 100 mg/dL [facility] Interpretation and review of laboratory results Abnormal [facility] Potassium [Moles/Vol] 5.0 mmol/L 3.5 - 5.1 mmol/L [facility] Sodium [Moles/Vol] 134 mmol/L Low 135 - 145 mmol/L [facility] Urea nitrogen [Mass/Vol] 46 mg/dL High 9 - 20 mg/d L [facility] Laboratory - Chemistry and C hemistry - challengeon 08-17-2023 Magnesium [Mass/Vol] 2.1 mg/dL 1.6 - 2 .3 mg/dL [facility] TSH Qn 0.981 m[IU]/L [facility] TSH Qn 1.190 m[IU]/L [facility] Troponin I.cardiac [Mass/Vol] 0.094 ng/mL High NINF - 0.034 ng/mL [facility] Magnesium [Mass/Vol]on 08-17 Interpretation and review of laboratory results Normal [facility] No Panel InformationOrdered By: Ruy Milton on 08-17-2023 P [place] degrees [facility] Work Phone: MS Interval ms [facility] Work Phone: QRS [place] 61 degrees [employer] Phone: QRSD Interval 114 ms [facility] Work Phone: QT Interval 364 ms [facility] Work Phone: QTC Interval 491 ms [facility] Work Phone: T Wave [place] -20 degrees [facility] Work Phone: [facility] Work Phone: No Panel Informationon 08-17 ATRIAL [...] On 08-17-2023 6:57:31 EST by Ruy Milton [facility] TSH Qnon 08-17-2023 Interpretation and review of laboratory results Normal [facility] Interpretation and review of laboratory results Normal [facility] Troponin I.cardiac [Mass/Vol ]on 08-17-2023 Interpretation and review of laboratory results Abnormal [facility] Patients with high levels of Biotin oral intake (ie >5 mg/day) may have falsely decreased Troponin levels. [facility] US Heart TransthoracicOrdere d By: Jr Shah on 08-17-2023 Ao Root Index 1.58 cm/m2 [facility] Work Phone: Aortic Root 3.3 cm [facility] Work Phone: Ascending Aorta 3.3 cm [facility] Work Phone: Ascending Aorta Index 1.58 cm/m2 [facility] Work Phone: AV Area by Peak Velocity 1.1 cm2 [facility] Work Phone: AV Area by VTI 1.1 cm2 [facility] Work Phone: AV AT 97.05 ms [facility] Work Phone: AV Mean Gradient 34 mmHg [facility] Work Phone: AV Mean Velocity 2.7 m/s [facility] Work Phone: AV Peak Gradient 59 mmHg [facility] Work Phone: AV Peak Velocity 3.8 m/s [facility] Work Phone: AV Velocity Ratio 0.26 [facility] Work Phone: AV VTI 84.0 cm [facility] Work Phone: MALU/BSA Peak Velocity 0.5 cm2/m2 [facility] Work Phone: MALU/BSA VTI 0.5 cm2/m2 [facility] Work Phone: E/E' Lateral 11.44 [facility] Work Phone: E/E' Ratio (Averaged) 13.08 [facility] Work Phone: E/E' Septal 14.71 [facility] Work Phone: [phone] EF BP 62 % 55 - 100 % [facility] Work Phone: [phone] Est. RA Pressure [address] [facility] Work Phone: [phone] Fractional Shortening 2D 30 % 28 - 44 % [facility] Work Phone: [phone] Interpretation and review of laboratory results Abnormal [facility] Work Phone: [phone] IVC Diameter 1.1 cm [facility] Work Phone: [phone] IVSd 1.1 cm Abnormal 0.6 - 1.0 cm [facility] Work Phone: [phone] LA Diameter 4.0 cm [facility] Work Phone: LA Size Index 1.91 cm/m2 [facility] Work Phone: LA Volume 2C 66 mL Abnormal 18 - 58 mL [facility] Work Phone: [phone] LA Volume 4C 71 mL Abnormal 18 - 58 mL [facility] Work Phone: [phone] LA Volume A/L 75 mL [facility] Work Phone: [phone] LA Volume BP 69 mL Abnormal 18 - 58 mL [facility] Work Phone: [phone] LA Volume Index 2C 32 mL/m2 16 - 34 mL/m2 [facility] Work Phone: [phone] LA Volume Index 4C 34 mL/m2 16 - 34 mL/m2 [facility] Work Phone: [phone] LA Volume Index A/L 36 mL/m2 16 - 34 mL/m2 [facility] Work Phone: LA Volume Index BP 33 ml/m2 16 - 34 ml/m2 [facility] Work Phone: LA/AO Root Ratio 1.21 [facility] Work Phone: LV E' Lateral Velocity 9 cm/s [facility] Work Phone: LV E' Septal Velocity 7 cm/s [facility] Work Phone: LV EDV A2C 104 mL [facility] Work Phone: LV EDV A4C 89 mL [facility] Work Phone: LV EDV BP 97 mL 67 - 155 mL [facility] Work Phone: LV EDV Index A2C 50 mL/m2 [facility] Work Phone: LV EDV Index A4C 43 mL/m2 [facility] Work Phone: LV EDV Index BP 46 mL/m2 [facility] Work Phone: LV Ejection Fraction A2C 61 % [facility] Work Phone: LV Ejection Fraction A4C 64 % [facility] Work Phone: LV ESV A2C 41 mL [facility] Work Phone: LV ESV A4C 32 mL [facility] Work Phone: LV ESV BP 37 mL 22 - 58 mL [facility] Work Phone: LV ESV Index A2C 20 mL/m2 [facility] Work Phone: LV ESV Index A4C 15 mL/m2 [facility] Work Phone: LV ESV Index BP 18 mL/m2 [facility] Work Phone: LV Mass 2D 173.6 g 88 - 224 g [facility] Work Phone: LV Mass 2D Index 83.1 g/m2 49 - 115 g/m2 [facility] Work Phone: LV RWT Ratio 0.56 [facility] Work Phone: LVIDd 4.3 cm 4.2 - 5.9 cm [facility] Work Phone: LVIDd Index 2.06 cm/m2 [facility] Work Phone: LVIDs 3.0 cm [facility] Work Phone: LVIDs Index 1.44 cm/m2 [facility] Work Phone: LVOT Area 4.2 cm2 [facility] Work Phone: LVOT Cardiac Output 7.6 liter/minute [facility] Work Phone: LVOT Diameter 2.3 cm [facility] Work Phone: LVOT Mean Gradient 2 mmHg [facility] Work Phone: LVOT Peak Gradient 4 mmHg [facility] Work Phone: [phone] LVOT Peak Velocity 1.0 m/s [facility] Work Phone: [phone] LVOT Stroke Volume Index 46.5 mL/m2 [facility] Work Phone: LVOT SV 97.2 ml [facility] Work Phone: LVOT VTI 23.4 cm [facility] Work Phone: [phone] LVOT:AV VTI Index 0.28 [facility] Work Phone: [phone] LVPWd 1.2 cm Abnormal 0.6 - 1.0 cm [facility] Work Phone: [phone] MV A Velocity 0.79 m/s [facility] Work Phone: MV Area by PHT 1.9 cm2 [facility] Work Phone: MV E Velocity 1.03 m/s [facility] Work Phone: [phone] MV E Wave Deceleration Time 278.6 ms [facility] Work Phone: [phone] MV E/A 1.30 [facility] Work Phone: [phone] MV Mean Gradient 3 mmHg [facility] Work Phone: [phone] MV Peak Gradient 6 mmHg [facility] Work Phone: [phone] MV PHT 113.0 ms [facility] Work Phone: [phone] RA Area 4C 79.9 mL [facility] Work Phone: RA Area 4C 77.7 mL [facility] Work Phone: [phone] RV Basal Dimension 4.6 cm [facility] Work Phone: [phone] RV Mid Dimension 3.3 cm [facility] Work Phone: RVSP 30 mmHg [facility] Work Phone: [phone] Sinotubular Junction 3.0 cm [facility] Work Phone: TR Max Velocity 2.72 m/s [facility] Work Phone: TR Peak Gradient 30 mmHg [facility] Work Phone: [facility] Work Phone: Heart Transthoracicon Aortic Valve: Trileaflet. Moderately thickened [...] on 08-17-2023 Heart rate 109 /min bpm [facility] Work Phone: Basic metabolic 1998 panelon 08-16-2023 Anion gap [Moles/Vol] 15 mmol/L High 3 - 13 mmol/L [facility] Calcium [Mass/Vol] 9.1 mg/dL 8.4 - 10. 4 mg/dL [facility] Chloride [Moles/Vol] 93 mmol/L Low 98 - 10 7 mmol/L [facility] CO2 [Moles/Vol] 25 mmol/L 22 - 30 mmol/L [facility] Creatinine [Mass/Vol] 6.01 mg/dL High 0.66 - 1.25 mg/dL [facility] GFR/1.73 sq M.predicted MDRD (S/P/Bld) [Vol rate/Area] 10.2 mL/min/{1.73_m2} Low - PINF [facility] Comment on above: Calculation based on the Chronic Kidney Disease Epidemiology Collaboration (CKD-EPI) equation refit without adjustment for race Glucose [Mass/Vol] 110 mg/dL High 70 - 100 mg/dL [facility] Interpretation and review of laboratory results Abnormal [facility] Potassium [Moles/Vol] 4.5 mmol/L 3.5 - 5.1 mmol/L [facility] Sodium [Moles/Vol] 133 mmol/L Low 135 - 145 mmol/L [facility] Urea nitrogen [Mass/Vol] 40 mg/dL High 9 - 20 mg/d L [facility] CBC W Auto Differential pane l (Bld)Ordered By: Aric Montejo on 08-16-2023 Basophils (Bld) [#/Vol] 0.1 10*3/uL 0.0 - 0.2 10*3/uL [facility] Basophils/100 WBC (Bld) 1.3 % 0.0 - 2.0 % [facility] Eosinophils (Bld) [#/Vol] 0.5 10*3/uL 0.0 - 0.5 10*3/uL [facility] Eosinophils/100 WBC (Bld) 5.1 % 1.0 - 6.0 % [facility] Erythrocyte distribution width (RBC) [Ratio] 14.7 % High 11.5 - 14.5 % [facility] Hematocrit (Bld) [Volume fraction] 41.6 % 40.0 - 52.0 % [facility] Hemoglobin (Bld) [Mass/Vol] 14.5 g/dL 13.0 - 18.0 g/dL [facility] Interpretation and review of laboratory results Abnormal [facility] Lymphocytes (Bld) [#/Vol] 1.3 10*3/uL 1.0 - 4.3 10*3/uL [facility] Lymphocytes/100 WBC (Bld) 14.2 % Low 20.0 - 40.0 % [facility] MCH (RBC) [Entitic mass] 31.5 pg 26. 0 - 34.0 pg [facility] MCHC (RBC) [Mass/Vol] 34.8 % 32.0 - 36.0 % [facility] MCV (RBC) [Entitic vol] 90.5 fL 80.0 - 98.0 fL [facility] Monocytes (Bld) [#/Vol] 1.3 10*3/uL High 0.0 - 0.8 10*3/uL [facility] Monocytes/100 WBC (Bld) 13.5 % High 2.0 - 10.0 % [facility] Neutrophils (Bld) [#/Vol] 6.2 10*3/uL 1.8 - 7.0 10*3/uL [facility] Neutrophils/100 WBC (Bld) 65.9 % 40.0 - 80.0 % [facility] Nucleated RBC/100 WBC (Bld) [Ratio] 0.1 % [facility] Platelet mean volume (Bld) [Entitic vol] 7.3 fL Low 7.4 - 12.4 fL [facility] Platelets (Bld) [#/Vol] 254 10*3/uL 140 - 440 10*3/uL [facility] RBC (Bld) [#/Vol] 4.60 10*6/uL 4.40 - 5.9 0 10*6/uL [facility] WBC (Bld) [#/Vol] 9.5 10*3/uL 3.6 - 10.7 10*3/uL [facility] Laboratory - Chemistry and C hemistry - challengeon 08-16-2023 Troponin I.cardiac [Mass/Vol] 0.062 ng/mL High [facility] - 0.034 ng/mL [facility] Troponin I.cardiac [Mass/Vol] 0.037 ng/mL High [facility] - 0.034 ng/mL [facility] Troponin I.cardiac [Mass/Vol ]on 08-16-2023 Interpretation and review of laboratory results Abnormal [facility] Patients with high levels of Biotin oral intake (ie >5 mg/day) may have falsely decreased Troponin levels. [facility] Interpretation and review of laboratory results Abnormal [facility] Patients with high levels of Biotin oral intake (ie >5 mg/day) may have falsely decreased Troponin levels. [facility] XR Chest Single viewon 08-16 1. Cardiomegaly. 2. No other acute findings. Report Dictated on Electronically Signed By: Justo Milan MD Electronically Signed Date/Time: 08/16/2023 6:42 PM [facility] Patient Name: JUN SNYDER : 1965 Exam Date/Time: 08/16/2023 18:39 Procedure: XR CHEST 1 VIEW Ordering Provider: GRANADOS SHAYA Reason For Exam: CHEST PAIN CHEST PORTABLE CLINICAL INDICATION: CHEST PAIN TECHNIQUE: Portable chest x-ray(s). COMPARISON: September,. FINDINGS: Mild cardiomegaly, stable. Lungs are grossly clear. No significant vascular congestion. No apparent pneumothorax. Bony thorax grossly unremarkable. [facility] Justo Milan MD - 08/16/2023 Patient Name: [facility]UN SN[facility]DER [facility] 1965 [id number] Exam Date/Time: 08/16/2023 18:39 Procedure: XR CHEST [...] Electronically Signed Date/Time: 08/16/2023 6:42 PM EST [facility] Radiology Study observation (narrative) [facility] XR Chest Single viewOrdered By: Justo Milan on 08-16-2023 [facility] Work Phone: [employer] BLDon 12-17-2022 Potassium [Moles/Vol] 7.6 mmol/L Critically high 3.7-5.1 [facility] Comment on above: Order Comment: Dominick richards Type: BLOOD SPECIMEN Ordering Facility: [facility] Address: , , Performed By: #### K 1 #### [facility] CLIA [id number] [address] [place] [address] [place] [employer] BLDon 08-19-2022 Potassium [Moles/Vol] 7.0 mmol/L Critically high 3.7-5.1 [facility] Comment on above: Order Comment: Dominick richards Type: BLOOD SPECIMEN Ordering Facility: [facility] Address: , , Performed By: #### K 1 #### [facility] CLIA [id number] [address] [facility] POTASSIUM BLDon 06-16-2022 Potassium [Moles/Vol] 6.3 mmol/L Critically high 3.7-5.1 [facility] Comment on above: Order Comment: Speci men Type: BLOOD SPECIMEN Ordering Facility: [facility] Address: , , Performed By: #### K 1 #### [facility] CLIA [id number] [address] OF [facility] Hgb Bld-mCncon 05-12-2022 Hemoglobin (Bld) [Mass/Vol] 8.4 g/dL Low 13.0-17.0 [facility] Comment on above: Order Comment: Specmatt richards Type: BLOOD SPECIMEN Ordering Facility: [facility] Address: , , Performed By: #### 7 18-7 #### [facility] CLIA [id number] [address] [facility] XA Special Angiography Proce [facility] 09-15-2021 XA Special Angiography Procedure Patient Name: JUN SNYDER Special Procedures ACCESSION EXAM DATE/TIME PROCEDURE ORDERING PROVIDER [id number] 09/15/2021 11:10 EST XA Special Angiography MD [...] and the needle was removed. A 3 Czech dilator was advanced over the wire and [...] Transcribed Date and Time: 09/15/2021 12:16 Normal [facility] IR DIALYSIS INJ W/ANGIOPLAST Yon 11-22-2020 IR DIALYSIS INJ W/ANGIOPLASTY Final Report DATE OF EXAM: Nov 22 2020 2:02PM JOE [id number] - IR DIALYSIS INJ W/ANGIOPLASTY / [...] This was initially converted to a 6 Czech sheath and later converted to a 7 Czech sheath. Reflux fistulogram for done in several [...] levels with a 6 x 40 mm Bristol balloon. This gave minimal improvement. We then exchanged the 6 mm balloon for an 8 x 40 mm Bristol balloon. This gave more moderate improvement. At that point we changed the 6 Czech sheath to a 7 Czech sheath and placed a 9 x 40 [...] site of puncture trauma. With the 7 Czech sheath removed pressure was held on the [...] dilation of stenotic lesion as noted above. Digital Product Manager: [facility] Transcribe Date/Time: Nov 22 2020 2:07P Dictated by : VINCENT DE LA ROSA MD This examination was interpreted and the report reviewed and electronically signed by: VINCENT DE LA ROSA MD on Nov 22 2020 2:13PM EST Normal [facility] XA SPECIAL ANGIOGRAPHY PROCE [facility] 10-17-2020 Patient Name: GLENN SNYDER Special Procedures ACCESSION EXAM DATE/TIME PROCEDURE ORDERING PROVIDER [id number] 10/17/2020 08:27 EST XA Special Angiography MD [...] KEVIN Transcribed Date and Time: 10/17/2020 1:05 [facility] [place] [place] Jenna Mckeon Incoming Radiology Results From [facility] - 10/17/2020 1:05 PM EST Patient Name: GLENN SNYDER Special Procedures ACCESSION EXAM DATE/TIME PROCEDURE ORDERING PROVIDER [id number] 10/17/2020 08:27 EST XA Special Angiography MD [...] KEVIN Transcribed Date and Time: 10/17/2020 1:05 [facility] [place] XA [facility] 10-17-2020 XA Special Angiography Procedure Patient Name: GLENN SNYDER Special Procedures ACCESSION EXAM DATE/TIME PROCEDURE ORDERING PROVIDER [id number] 10/17/2020 08:27 EST XA Special Angiography MD DA[facility] Procedure BISI Reason For Exam (XA Special [...] Transcribed Date and Time: 10/17/2020 1:05 Normal [facility] Basic Metabolic Panelon 04-27 Anion gap [Moles/Vol] 17 mmol/L Normal 9-18 [facility] Comment on above: Performed By: #### B MP #### [address] [address] Calcium [Mass/Vol] 9.1 mg/dL Normal 8.5-10.2 [facility] Comment on above: Performed By: #### B MP #### [facility] [address] [place], [place] [address] Chloride [Moles/Vol] 100 mmol/L Normal 97-105 [facility] Comment on above: Performed By: #### B MP #### [facility] [address] [place], [place] [address] CO2 Blood 18 mmol/L Low 22-30 [facility] Comment on above: Performed By: #### B MP #### [facility] [address] [place], [place] [address] Creatinine [Mass/Vol] 13.39 mg/dL High 0.73-1.22 [facility] Comment on above: Performed By: #### B MP #### [facility] [address] [place], [place] [address] Glucose [Mass/Vol] 83 mg/dL Normal 74-99 [facility] Comment on above: Result Comment: The [place] Diabetes Association (ADA) provides guidance for cutoff [...] Standards of Medical Care in Diabetes 2016; [place] [employer]. Diabetes Care. 2016;39(Suppl 1). Performed By: #### B MP #### [facility] [address] [place], [place] [address] Potassium [Moles/Vol] 4.8 mmol/L Normal 3.7-5.1 [facility] Comment on above: Performed By: #### B MP #### [facility] [address] [place], [place] [address] Sodium [Moles/Vol] 135 mmol/L Low 136-144 [facility] Comment on above: Performed By: #### B MP #### [facility] [address] [place], [place] [address] Urea nitrogen [Mass/Vol] 61 mg/dL High 9-24 [facility] Comment on above: Performed By: #### B MP #### [facility] [address] [place], [place] [address] Hemogramon 05-10-2020 Erythrocyte distribution width (RBC) [Ratio] 12.7 % Normal 11.6-14.4 [facility] Comment on above: Performed By: #### C BC1 #### [facility] [address] [place], [place] [address] Hematocrit (Bld) [Volume fraction] 28.4 % Low 40.1-51.0 [facility] Comment on above: Performed By: #### C BC1 #### [facility] [address] [place], [place] [address] Hemoglobin (Bld) [Mass/Vol] 9.2 g/dL Low 13.7-17.5 [facility] Comment on above: Performed By: #### C BC1 #### [facility] [address] [place] [address] MCH (RBC) [Entitic mass] 30.6 pg Normal 25.7-32.2 [facility] Comment on above: Performed By: #### C BC1 #### [facility] [address] [place] [address] MCHC (RBC) [Mass/Vol] 32.4 % Normal 32.3-36.5 [facility] Comment on above: Performed By: #### C BC1 #### [facility] [address] [place] [address] MCV (RBC) [Entitic vol] 94.4 fL Normal 83.2-95.6 [facility] Comment on above: Performed By: #### C BC1 #### [facility] [address] [place] [address] Platelet mean volume (Bld) [Entitic vol] 10.1 fL Normal 8.7-12.0 [facility] Comment on above: Performed By: #### C BC1 #### [facility] [address] [place], [place] [address] Platelets (Bld) [#/Vol] 278 thou/cmm Normal 141-365 [facility] Comment on above: Performed By: #### C BC1 #### [facility] [address] [place] [id number] RBC (Bld) [#/Vol] 3.01 mil/cmm Low 4.63-6.08 [facility] Comment on above: Performed By: #### C BC1 #### [facility] [address] [place], [place] [address] RDW SD 43.8 fl Normal 36.1-45.8 [facility] Comment on above: Performed By: #### C BC1 #### [facility] [address] [place], [place] [address] WBC (Bld) [#/Vol] 8.58 thou/cmm Normal 4.23-9.07 [facility] Comment on above: Performed By: #### C BC1 #### [facility] [address] [place], [place] [address] MDRD GFRon 05-10-2020 GFR/1.73 sq M predicted among non-blacks MDRD (S/P/Bld) [Vol rate/Area] 3.89 mL/min/{1.73_m2} Normal >60mL/min/1.7 3m2 [facility] Comment on above: Result Comment: If t he patient is , multiply the result by 1.210. Performed By: #### G FR #### [facility] [address] [place], [place] [address] Protimeon 05-10-2020 INR Coag (PPP) [Relative time] 0.98 {INR} Normal 0.90-1.30 [facility] Comment on above: Result Comment: Conchita min K Antagonist (VKA) Therapeutic Range: INR 2 to 3 (Target INR of 2.5) Note: For patients treated with VKA drugs, such as warfarin, the [place] [employer] 2012 Guideline recommends [...] Chest 2012; 141:7S-47S Randall RA et al. JACC 2017; 70: 252-289 Performed By: #### P T #### [facility] [address] [place], [place] [address] PT Coag (PPP) [Time] 10.6 s Normal 9.7-13.0 [facility] Comment on above: Performed By: #### P T #### [facility] [address] [place], [place] [address] Rapid, COVID 19on 03-20-2020 Rapid, COVID 19 Negative Normal Negative [facility] Comment on above: Result Comment: This test has been authorized by the FDA under an Emergency Use Authorization (EUA). Performed By: #### R COVD #### [place] [address] Basic Metabolic Panelon 02-25 Anion gap [Moles/Vol] 14 mmol/L Normal 9-18 [facility] Comment on above: Performed By: #### B MP #### [place] [address] Calcium [Mass/Vol] 10.0 mg/dL Normal 8.5-10.2 [facility] Comment on above: Performed By: #### B MP #### [place] [address] Chloride [Moles/Vol] 95 mmol/L Low 97-105 [facility] Comment on above: Performed By: #### B MP #### [place] [address] CO2 Blood 26 mmol/L Normal 22-30 [facility] Comment on above: Performed By: #### B MP #### [place] [address] Creatinine [Mass/Vol] 9.29 mg/dL High 0.73-1.22 [facility] Comment on above: Performed By: #### B MP #### [facility] [address] [place] [address] Glucose [Mass/Vol] 84 mg/dL Normal 74-99 [facility] Comment on above: Result Comment: The [place] Diabetes Association (ADA) provides guidance for cutoff [...] Standards of Medical Care in Diabetes 2016; [place] [employer]. Diabetes Care. 2016;39(Suppl 1). Performed By: #### B MP #### [facility] [address] [place], [place] [address] Potassium [Moles/Vol] 3.7 mmol/L Normal 3.7-5.1 [facility] Comment on above: Performed By: #### B MP #### [facility] [address] [place], [place] [address] Sodium [Moles/Vol] 135 mmol/L Low 136-144 [facility] Comment on above: Performed By: #### B MP #### [facility] [address] [place], [place] [address] Urea nitrogen [Mass/Vol] 32 mg/dL High 9-24 [facility] Comment on above: Performed By: #### B MP #### [facility] [address] [place], [place] [address] Hematologyon 03-13-2020 INR Coag (PPP) [Relative time] 0.96 {INR} 0.90 - 1.30 [facility] PT Coag (PPP) [Time] 10.4 s 9.7 - 1 3.0 sec [facility] Hematocrit (Bld) [Volume fraction] 30.6 % Low 40.1 - 51.0 % [facility] Hemoglobin (Bld) [Mass/Vol] 10.8 g/dL Low 13.7 - 17.5 g/dL [facility] MCH (RBC) [Entitic mass] 31.0 pg 25. 7 - 32.2 pg [facility] MCV (RBC) [Entitic vol] 87.9 fL 83.2 - 95.6 fl [facility] Platelets (Bld) [#/Vol] 269 thou/cmm 141 - 365 thou/cmm [facility] RBC (Bld) [#/Vol] 3.48 mil/cmm Low 4.63 - 6.0 8 mil/cmm [facility] WBC (Bld) [#/Vol] 10.79 thou/cmm High 4.23 - 9 .07 thou/cmm [facility] Hemogramon 03-13-2020 Erythrocyte distribution width (RBC) [Ratio] 13.2 % Normal 11.6-14.4 [facility] Comment on above: Performed By: #### C BC1 #### [facility] [address] [place] [address] Hematocrit (Bld) [Volume fraction] 30.6 % Low 40.1-51.0 [facility] Comment on above: Performed By: #### C BC1 #### [place] [address] Hemoglobin (Bld) [Mass/Vol] 10.8 g/dL Low 13.7-17.5 [facility] Comment on above: Performed By: #### C BC1 #### [place] [address] MCH (RBC) [Entitic mass] 31.0 pg Normal 25.7-32.2 [facility] Comment on above: Performed By: #### C BC1 #### [place] [address] MCHC (RBC) [Mass/Vol] 35.3 % Normal 32.3-36.5 [facility] Comment on above: Performed By: #### C BC1 #### [address] [address] MCV (RBC) [Entitic vol] 87.9 fL Normal 83.2-95.6 [facility] Comment on above: Performed By: #### C BC1 #### [facility] [address] [place] [id number] Platelet mean volume (Bld) [Entitic vol] 10.1 fL Normal 8.7-12.0 [facility] Comment on above: Performed By: #### C BC1 #### [facility] [address] [place], [place] [address] Platelets (Bld) [#/Vol] 269 thou/cmm Normal 141-365 [facility] Comment on above: Performed By: #### C BC1 #### [facility] [address] [place], [place] [address] RBC (Bld) [#/Vol] 3.48 mil/cmm Low 4.63-6.08 [facility] Comment on above: Performed By: #### C BC1 #### [facility] [address] [place], [place] [address] RDW SD 42.3 fl Normal 36.1-45.8 [facility] Comment on above: Performed By: #### C BC1 #### [facility] [address] [place], [place] [address] WBC (Bld) [#/Vol] 10.79 thou/cmm High 4.23-9.07 [facility] Comment on above: Performed By: #### C BC1 #### [facility] [address] [place], [place] [address] MDRD GFRon 03-13-2020 GFR/1.73 sq M predicted among non-blacks MDRD (S/P/Bld) [Vol rate/Area] 5.94 mL/min/{1.73_m2} Normal >60mL/min/1.7 3m2 [facility] Comment on above: Result Comment: If t he patient is , multiply the result by 1.210. Performed By: #### G FR #### [facility] [address] [place], [place] [address] Metabolic Panelon 03-13-2020 Anion gap [Moles/Vol] 14 mmol/L 9 - 18 mmol/L [facility] Calcium [Mass/Vol] 10.0 mg/dL 8.5 - 10. 2 mg/dL [facility] Chloride [Moles/Vol] 95 mmol/L Low 97 - 10 5 mmol/L [facility] CO2 [Moles/Vol] 26 mmol/L 22 - 30 mmol/L [facility] Creatinine [Mass/Vol] 9.29 mg/dL High 0.73 - 1.22 mg/dL [facility] Glucose [Mass/Vol] 84 mg/dL 74 - 99 mg/dL [facility] Potassium [Moles/Vol] 3.7 mmol/L 3.7 - 5.1 mmol/L [facility] Sodium [Moles/Vol] 135 mmol/L Low 136 - 144 mmol/L [facility] Urea nitrogen [Mass/Vol] 32 mg/dL High 9 - 24 mg/d L [facility] Otheron 03-13-2020 GFR/1.73 sq M.predicted MDRD (S/P/Bld) [Vol rate/Area] 5.94 mL/min/{1.73_m2} >60mL/min/1.7 3m2 [facility] Erythrocyte distribution width (RBC) [Entitic vol] 42.3 fL 36.1 - 45.8 fl [facility] Erythrocyte distribution width (RBC) [Ratio] 13.2 % 11.6 - 14.4 % [facility] MCHC (RBC) [Mass/Vol] 35.3 % 32.3 - 36.5 % [facility] Platelet mean volume (Bld) [Entitic vol] 10.1 fL 8.7 - 12.0 fl [facility] Protimeon 03-13-2020 INR Coag (PPP) [Relative time] 0.96 {INR} Normal 0.90-1.30 [facility] Comment on above: Result Comment: Conchita min K Antagonist (VKA) Therapeutic Range: INR 2 to 3 (Target INR of 2.5) Note: For patients treated with VKA drugs, such as warfarin, the [place] [employer] 2012 Guideline recommends [...] Chest 2012; 141:7S-47S Randall RA et al. JACC 2017; 70: 252-289 Performed By: #### P T #### [facility] [address] [place], [place] [address] PT Coag (PPP) [Time] 10.4 s Normal 9.7-13.0 [facility] Comment on above: Performed By: #### P T #### [facility] [address] [place], [place] [address] US VEIN MAPPING UPPER BILon 02-13-2020 US VEIN MAPPING UPPER HO * * *Final Report* * * DATE OF EXAM: Feb 13 2020 2:22PM [facility] 1085 - US VEIN MAPPING UPPER [...] unobstructed. There is no deep venous thrombosis. Digital Product Manager: PSCB Transcribe Date/Time: Feb 13 2020 4:27P Dictated by : ANALISA GRANADOS MD This examination was interpreted and the report reviewed and electronically signed by: ANALISA GRANADOS MD on Feb 13 2020 4:30PM EST Normal [facility] Basic Metabolic PanelOrdered By: Darell Sanches on 10-27-2019 Anion gap [Moles/Vol] 18 mmol/L [facility] Work Phone: Calcium [Mass/Vol] 9.2 mg/dL 8.4 - 10. 4 mg/dL [facility] Work Phone: Chloride [Moles/Vol] 93 mmol/L Low 98 - 10 7 mmol/L [facility] Work Phone: CO2 [Moles/Vol] 24 mmol/L 22 - 30 mmol/L [facility] Work Phone: Creatinine [Mass/Vol] 9.99 mg/dL High 0.52 - 1.25 mg/dL [facility] Work Phone: EGFR IF NonAfrican [place] 5.5 mL/min >60 [facility] Work Phone: Comment on above: Source- MDRD equatio n with creatinine calibration to IDMS(NKDEP) eGFR not recommended for drug dose adjustment GFR/1.73 sq M.predicted among blacks MDRD (S/P/Bld) [Vol rate/Area] 6.6 mL/min/{1.73_m2} >60 [facility] Work Phone: Glucose [Mass/Vol] 103 mg/dL High 70 - 100 mg/dL [facility] Work Phone: Potassium [Moles/Vol] 4.5 mmol/L 3.5 - 5.1 mmol/L [facility] Work Phone: [phone] Sodium [Moles/Vol] 135 mmol/L 135 - 145 mmol/L [facility] Work Phone: 1 Urea nitrogen [Mass/Vol] 49 mg/dL High 7 - 20 mg/d L [facility] Work Phone: CBC Auto DifferentialOrdered By: Darell Sanches on 10-27-2019 Absolute Baso # 0.1 10*3/uL 0 - 0.2 10*3/uL [facility] Work Phone: Absolute Neut # 6.6 10*3/uL 1.8 - 7 10*3/uL [facility] Work Phone: 22 Basophils/100 WBC (Bld) 0.7 % 0 - 2 % [facility] Work Phone: Eosinophils (Bld) [#/Vol] 0.5 10*3/uL 0 - 0.5 10*3/uL [facility] Work Phone: 22 Eosinophils/100 WBC (Bld) 4.9 % 1 - 6 % [facility] Work Phone: Erythrocyte distribution width (RBC) [Ratio] 14.0 % 11.5 - 14.5 % [facility] Work Phone: Granulocytes/100 WBC (Bld) 62.2 % 40 - 80 % [facility] Work Phone: Hematocrit (Bld) [Volume fraction] 28.3 % Low 40 - 52 % [facility] Work Phone: Hemoglobin (Bld) [Mass/Vol] 9.5 g/dL Low 13 - 18 g/dL [facility] Work Phone: 22 Lymphocytes (Bld) [#/Vol] 2.0 10*3/uL 1 - 4.3 10*3/uL [facility] Work Phone: 22 Lymphocytes/100 WBC (Bld) 18.8 % Low 20 - 40 % [facility] Work Phone: MCH (RBC) [Entitic mass] 29.1 pg 26 - 34 pg [facility] Work Phone: 22 MCHC 33.6 % 32 - 36 % [facility] Work Phone: 1 MCV (RBC) [Entitic vol] 86.7 fL 80 - 98 fL [facility] Work Phone: Monocytes (Bld) [#/Vol] 1.4 10*3/uL High 0 - 0.8 10*3/uL [facility] Work Phone: Monocytes/100 WBC (Bld) 13.4 % High 2 - 10 % [facility] Work Phone: Platelet mean volume (Bld) [Entitic vol] 8.2 fL 7.4 - 10.4 fL [facility] Work Phone: Platelets (Bld) [#/Vol] 259 10*3/uL 140 - 440 10*3/uL [facility] Work Phone: RBC (Bld) [#/Vol] 3.27 10*6/uL Low 4.4 - 5.9 10*6/uL [facility] Work Phone: WBC (Bld) [#/Vol] 10.6 10*3/uL 3.6 - 10.7 10*3/uL [facility] Work Phone: MAGNESIUMOrdered By: Darell Sanches on 10-27-2019 Magnesium [Mass/Vol] 2.6 mg/dL High 1.6 - 2 .3 mg/dL [facility] Work Phone: No Panel InformationOrdered By: Darell Sanches on 10-27-2019 Interpretation and review of laboratory results Abnormal [facility] Work Phone: [facility], [address] [place] [id number] [place] [address] Work Phone: PhosphorusOrdered By: Darell Sanches on 10-27-2019 Phosphate [Mass/Vol] 9.9 mg/dL High 2.5 - 4 .5 mg/dL [facility] Work Phone: Basic Metabolic PanelOrdered By: Darell Sanches on 10-26-2019 Anion gap [Moles/Vol] 14 mmol/L [facility] Work Phone: Calcium [Mass/Vol] 9.0 mg/dL 8.4 - 10. 4 mg/dL [facility] Work Phone: [phone] Chloride [Moles/Vol] 94 mmol/L Low 98 - 10 7 mmol/L [facility] Work Phone: [phone] CO2 [Moles/Vol] 29 mmol/L 22 - 30 mmol/L [facility] Work Phone: [phone] Creatinine [Mass/Vol] 7.06 mg/dL High 0.52 - 1.25 mg/dL [facility] Work Phone: [phone] EGFR IF NonAfrican [place] 8.2 mL/min >60 [facility] Work Phone: [phone] Comment on above: Source- MDRD equatio n with creatinine calibration to IDMS(NKDEP) eGFR not recommended for drug dose adjustment GFR/1.73 sq M.predicted among blacks MDRD (S/P/Bld) [Vol rate/Area] 9.9 mL/min/{1.73_m2} >60 [facility] Work Phone: [phone] Glucose [Mass/Vol] 95 mg/dL 70 - 100 mg/dL [facility] Work Phone: [phone] Potassium [Moles/Vol] 4.2 mmol/L 3.5 - 5.1 mmol/L [facility] Work Phone: [phone] Sodium [Moles/Vol] 136 mmol/L 135 - 145 mmol/L [facility] Work Phone: [phone] Urea nitrogen [Mass/Vol] 27 mg/dL High 7 - 20 mg/d L [facility] Work Phone: [phone] CBC Auto DifferentialOrdered By: Darell Sanches on 10-26-2019 Absolute Baso # 0.1 10*3/uL 0 - 0.2 10*3/uL [facility] Work Phone: [phone] Absolute Neut # 7.1 10*3/uL High 1.8 - 7 10*3/uL [facility] Work Phone: [phone] Basophils/100 WBC (Bld) 0.8 % 0 - 2 % S [facility] Work Phone: [phone] Eosinophils (Bld) [#/Vol] 0.5 10*3/uL 0 - 0.5 10*3/uL [facility] Work Phone: [phone] Eosinophils/100 WBC (Bld) 4.7 % 1 - 6 % [facility] Work Phone: [phone] 22 Erythrocyte distribution width (RBC) [Ratio] 13.9 % 11.5 - 14.5 % [facility] Work Phone: 1 22 Granulocytes/100 WBC (Bld) 63.9 % 40 - 80 % [facility] Work Phone: 1 Hematocrit (Bld) [Volume fraction] 29.2 % Low 40 - 52 % [facility] Work Phone: 1 Hemoglobin (Bld) [Mass/Vol] 9.9 g/dL Low 13 - 18 g/dL [facility] Work Phone: 1 Interpretation and review of laboratory results Abnormal [employer] Work Phone: 1 Lymphocytes (Bld) [#/Vol] 2.0 10*3/uL 1 - 4.3 10*3/uL [facility] [employer] Work Phone: [phone] 22 Lymphocytes/100 WBC (Bld) 17.8 % Low 20 - 40 % [employer] Work Phone: 1 MCH (RBC) [Entitic mass] 29.5 pg 26 - 34 pg [employer] Work Phone: 22 MCHC 33.9 % 32 - 36 % [employer] Work Phone: 1 MCV (RBC) [Entitic vol] 87.0 fL 80 - 98 fL [facility] Work Phone: 22 Monocytes (Bld) [#/Vol] 1.4 10*3/uL High 0 - 0.8 10*3/uL [facility] Work Phone: 1 22 Monocytes/100 WBC (Bld) 12.8 % High 2 - 10 % [facility] Work Phone: 22 Platelet mean volume (Bld) [Entitic vol] 8.0 fL 7.4 - 10.4 fL [facility] Work Phone: 1 22 Platelets (Bld) [#/Vol] 262 10*3/uL 140 - 440 10*3/uL [facility] Work Phone: [phone] RBC (Bld) [#/Vol] 3.36 10*6/uL Low 4.4 - 5.9 10*6/uL [facility] Work Phone: WBC (Bld) [#/Vol] 11.0 10*3/uL High 3.6 - 10.7 10*3/uL [facility] Work Phone: 1 Test Performed by [facility], [address] [place], [place] [address] [employer] Work Phone: 1 Culture Blood #1Ordered By: Brett Encarnacion on 10-26-2019 Blood Culture, Routine [employer] testing is not routinely performed on Gram positive bacilli. If a Listeria infection is highly suspected, contact the Microbiology laboratory [phone]). Abnormal [employer] [facility] [employer] Work Phone: 1 Blood Culture, Routine Propionibacterium acnes Abnormal [employer] [facility] [employer] Work Phone: 1 Blood Culture, Routine Isolated: Contamination likely unless additional blood culture sets are found to be positive with the same organism. [employer] Work Phone: 1 Interpretation and review of laboratory results Abnormal [employer] Work Phone: 1 Test Performed by [facility], [address] [place] [address] Specimen Source Comment:Blood [employer] Work Phone: 1 MAGNESIUMOrdered By: Darell Sanches on 10-26-2019 Magnesium [Mass/Vol] 2.2 mg/dL 1.6 - 2 .3 mg/dL [employer] [facility] [employer] Work Phone: 1 No Panel InformationOrdered By: Darell Sanches on 10-26-2019 Interpretation and review of laboratory results Abnormal [employer] Work Phone: 1 Test Performed by [facility], [address] [place], [place] [address] [employer] Work Phone: 1 PhosphorusOrdered By: Darell Sanches on 10-26-2019 Phosphate [Mass/Vol] 7.1 mg/dL High 2.5 - 4 .5 mg/dL [facility] Work Phone: 1 US BIOPSY RENAL RIGHT PERCOr dered By: Cindy Patel on 10-26-2019 Patient Name: GLENN SNYDER ---Ultrasound--- Exam Date/Time 10/26/2019 10:57:27 EST Exam US Biopsy Renal Right Ordering Physician MD DA, CINDY MATHEWS Accession Number [id number] CPT4 Codes 88953 (), 12506 () Reason For Exam renal failure Report ULTRASOUND GUIDED RIGHT LOWER POLE KIDNEY BIOPSY Reasons for examination: Acute renal failure. After review of prior studies, patient interview and examination, the risks, benefits, and alternatives of the biopsy procedure were discussed, informed consent was obtained. Education Professional US scans of the right kidney were [...] RICHARD Transcribed Date and Time: 10/26/2019 12:05 [facility] Work Phone: [facility], [facility] Incoming Radiology Results From [facility] - 10/26/2019 12:05 PM EST Patient Name: GLENN SNYDER ---Ultrasound--- Exam Date/Time 10/26/2019 10:57:27 EST Exam US Biopsy Renal Right Ordering Physician MD DA, CINDY MATHEWS Accession Number [id number] CPT4 Codes 42602 (), 52762 () Reason For Exam renal failure Report ULTRASOUND GUIDED RIGHT LOWER POLE KIDNEY BIOPSY Reasons for examination: Acute renal failure. After review of prior studies, patient interview and examination, the risks, benefits, and alternatives of the biopsy procedure were discussed, informed consent was obtained. Education Professional US scans of the right kidney were [...] XA Special Angiography Procedure Ordering Physician MD PEDRAZA AZIZ Accession Number [id number] Reason For Exam non tunneled to tunneled [...] [facility] Incoming Radiology Results From [facility] - 10/26/2019 3:29 PM EST Patient Name: GLENN SNYDER ---Special Procedures--- Exam Date/Time 10/26/2019 15:01:32 EST Exam XA Special Angiography Procedure Ordering Physician MD KEILA, [facility] Accession Number [id number] Reason For Exam non tunneled to tunneled cath Report FLUOROSCOPIC AND ULTRASOUND-GUIDED TUNNELED DIALYSIS CATHETER PLACEMENT REMOVAL OF RIGHT INTERNAL JUGULAR TEMPORARY HEMODIALYSIS CATHETER CLINICAL 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 4 mg/dL [facility] Work Phone: Chloride [Moles/Vol] 95 mmol/L Low 98 - 10 7 mmol/L [facility] Work Phone: CO2 [Moles/Vol] 26 mmol/L 22 - 30 mmol/L [facility] Work Phone: [phone] Creatinine [Mass/Vol] 9.71 mg/dL High 0.52 - 1.25 mg/dL [facility] Work Phone: [phone] EGFR IF NonAfrican [place] 5.7 mL/min >60 [facility] Work Phone: Comment on above: Source- MDRD equatio n with creatinine calibration to IDMS(NKDEP) eGFR not recommended for drug dose adjustment GFR/1.73 sq M.predicted among blacks MDRD (S/P/Bld) [Vol rate/Area] 6.9 mL/min/{1.73_m2} >60 [facility] Work Phone: [phone] Glucose [Mass/Vol] 96 mg/dL 70 - 100 mg/dL [facility] Work Phone: Potassium [Moles/Vol] 4.3 mmol/L 3.5 - 5.1 mmol/L [facility] Work Phone: Sodium [Moles/Vol] 135 mmol/L 135 - 145 mmol/L [facility] Work Phone: Urea nitrogen [Mass/Vol] 39 mg/dL High 7 - 20 mg/d L [facility] Work Phone: [phone] CBC Auto DifferentialOrdered By: Darell Sanches on 10-25-2019 Absolute Baso # 0.1 10*3/uL 0 - 0.2 10*3/uL [facility] Work Phone: [phone] Absolute Neut # 6.7 10*3/uL 1.8 - 7 10*3/uL [facility] Work Phone: [phone] Basophils/100 WBC (Bld) 0.9 % 0 - 2 % [facility] Work Phone: Eosinophils (Bld) [#/Vol] 0.5 10*3/uL 0 - 0.5 10*3/uL [facility] Work Phone: 22 Eosinophils/100 WBC (Bld) 4.5 % 1 - 6 % [facility] Work Phone: [phone] Erythrocyte distribution width (RBC) [Ratio] 13.8 % 11.5 - 14.5 % [facility] Work Phone: [phone] Granulocytes/100 WBC (Bld) 60.1 % 40 - 80 % [facility] Work Phone: [phone] Hematocrit (Bld) [Volume fraction] 28.3 % Low 40 - 52 % [facility] Work Phone: [phone] Hemoglobin (Bld) [Mass/Vol] 9.7 g/dL Low 13 - 18 g/dL [employer] Work Phone: [phone] Interpretation and review of laboratory results Abnormal [employer] Work Phone: 1 Lymphocytes (Bld) [#/Vol] 2.6 10*3/uL 1 - 4.3 10*3/uL [employer] Work Phone: 1 Lymphocytes/100 WBC (Bld) 22.9 % 20 - 40 % [employer] Work Phone: 1 MCH (RBC) [Entitic mass] 30.0 pg 26 - 34 pg [facility] Work Phone: 1 MCHC 34.3 % 32 - 36 % [employer] Work Phone: 1 MCV (RBC) [Entitic vol] 87.3 fL 80 - 98 fL [facility] [employer] Work Phone: 1 Monocytes (Bld) [#/Vol] 1.3 10*3/uL High 0 - 0.8 10*3/uL [employer] Work Phone: 1 Monocytes/100 WBC (Bld) 11.6 % High 2 - 10 % S [employer] Work Phone: 1 Platelet mean volume (Bld) [Entitic vol] 8.1 fL 7.4 - 10.4 fL [employer] Work Phone: Platelets (Bld) [#/Vol] 252 10*3/uL 140 - 440 10*3/uL [employer] Work Phone: 1 RBC (Bld) [#/Vol] 3.24 10*6/uL Low 4.4 - 5.9 10*6/uL [employer] Work Phone: 1 WBC (Bld) [#/Vol] 11.2 10*3/uL High 3.6 - 10.7 10*3/uL [employer] Work Phone: 1 Test Performed by [employer], [address] [place], [place] [address] [employer] Work Phone: 1 MAGNESIUMOrdered By: Darell Sanches on 10-25-2019 Magnesium [Mass/Vol] 2.2 mg/dL 1.6 - 2 .3 mg/dL [facility] Work Phone: [phone] Panel InformationOrdered By: Darell Sanches on 10-25-2019 Interpretation and review of laboratory results Abnormal [facility] Work Phone: Test Performed by [facility], [address] [place], [place] [address] [facility] Work Phone: 1 PhosphorusOrdered By: Darell Sanches on 10-25-2019 Phosphate [Mass/Vol] 9.3 mg/dL High 2.5 - 4 .5 mg/dL [facility] Work Phone: 1 APTTOrdered By: Cindy Patel on 10-24-2019 aPTT Coag (d) [Time] 28.5 s 20 - 30.5 s S [facility] Work Phone: Comment on above: NOTE: The therapeuti c time for Heparin anticoagulation, based on Xa activity inhibition, is an APTT of 46-80 seconds. Basic Metabolic PanelOrdered By: Darell Sanches on 10-24-2019 Anion gap [Moles/Vol] 10 mmol/L [facility] Work Phone: 1 Calcium [Mass/Vol] 8.6 mg/dL 8.4 - 10. 4 mg/dL [facility] Work Phone: Chloride [Moles/Vol] 94 mmol/L Low 98 - 10 7 mmol/L [facility] Work Phone: CO2 [Moles/Vol] 31 mmol/L High 22 - 30 mmol/L [facility] Work Phone: Creatinine [Mass/Vol] 7.11 mg/dL High 0.52 - 1.25 mg/dL [facility] Work Phone: 1 EGFR IF NonAfrican Venezuelan 8.1 mL/min >60 [facility] Work Phone: Comment on above: Source- MDRD equatio n with creatinine calibration to IDMS(NKDEP) eGFR not recommended for drug dose adjustment GFR/1.73 sq M.predicted among blacks MDRD (S/P/Bld) [Vol rate/Area] 9.8 mL/min/{1.73_m2} >60 [facility] Work Phone: [phone] Glucose [Mass/Vol] 93 mg/dL 70 - 100 mg/dL [facility] Work Phone: [phone] Potassium [Moles/Vol] 4.1 mmol/L 3.5 - 5.1 mmol/L [facility] Work Phone: [phone] Sodium [Moles/Vol] 135 mmol/L 135 - 145 mmol/L [facility] Work Phone: [phone] Urea nitrogen [Mass/Vol] 28 mg/dL High 7 - 20 mg/d L [facility] Work Phone: [phone] CBC Auto DifferentialOrdered By: Darell Sanches on 10-24-2019 Absolute Baso # 0.1 10*3/uL 0 - 0.2 10*3/uL [facility] Work Phone: [phone] Absolute Neut # 6.2 10*3/uL 1.8 - 7 10*3/uL [facility] Work Phone: [phone] Basophils/100 WBC (Bld) 0.7 % 0 - 2 % [facility] Work Phone: [phone] Eosinophils (Bld) [#/Vol] 0.4 10*3/uL 0 - 0.5 10*3/uL [facility] Work Phone: [phone] Eosinophils/100 WBC (Bld) 3.7 % 1 - 6 % [facility] Work Phone: [phone] Erythrocyte distribution width (RBC) [Ratio] 14.0 % 11.5 - 14.5 % [facility] Work Phone: [phone] Granulocytes/100 WBC (Bld) 63.8 % 40 - 80 % [facility] Work Phone: [phone] Hematocrit (Bld) [Volume fraction] 27.0 % Low 40 - 52 % [facility] Work Phone: [phone] Hemoglobin (Bld) [Mass/Vol] 9.2 g/dL Low 13 - 18 g/dL [facility] Work Phone: [phone] Interpretation and review of laboratory results Abnormal [facility] Work Phone: [phone] Lymphocytes (Bld) [#/Vol] 1.8 10*3/uL 1 - 4.3 10*3/uL [facility] Work Phone: 1 Lymphocytes/100 WBC (Bld) 18.8 % Low 20 - 40 % [facility] Work Phone: 1 MCH (RBC) [Entitic mass] 29.6 pg 26 - 34 pg [facility] Work Phone: 1 MCHC 34.1 % 32 - 36 % [employer] Work Phone: 1 MCV (RBC) [Entitic vol] 86.9 fL 80 - 98 fL [facility] [employer] Work Phone: Monocytes (Bld) [#/Vol] 1.3 10*3/uL High 0 - 0.8 10*3/uL [employer] Work Phone: Monocytes/100 WBC (Bld) 13.0 % High 2 - 10 % [facility] [employer] Work Phone: 1 Platelet mean volume (Bld) [Entitic vol] 8.4 fL 7.4 - 10.4 fL [employer] Work Phone: 1 Platelets (Bld) [#/Vol] 245 10*3/uL 140 - 440 10*3/uL [employer] Work Phone: RBC (Bld) [#/Vol] 3.10 10*6/uL Low 4.4 - 5.9 10*6/uL [employer] Work Phone: WBC (Bld) [#/Vol] 9.7 10*3/uL 3.6 - 10.7 10*3/uL [employer] Work Phone: Culture Blood #1Ordered By: Brett Encarnacion on 10-24-2019 Blood Culture, Routine No growth at 5 days. [employer] Work Phone: Test Performed by [facility] [address] Specimen Source Comment:Blood [employer] Work Phone: Glomerular Basement Membrane (GBM) Antibody IgGOrdered By: Randolph Liz on 10-24-2019 GBM Ab, IgG (IFA) Negative Negative NA [employer] Work Phone: Comment on above: INTERPRETIVE INFORMA [...] biopsy. Test developed and characteristics determined by [employer]. See Compliance Statement D: [employer]/ Performed by [employer], [address] [place] [address] [email or web address], Malvin Slade MD, Lab. Director MAGNESIUMOrdered By: Darell Sanches on 10-24-2019 Magnesium [Mass/Vol] 2.1 mg/dL 1.6 - 2 .3 mg/dL [facility] Work Phone: [phone] No Panel InformationOrdered By: Darell Sanches on 10-24-2019 Interpretation and review of laboratory results Abnormal [facility] Work Phone: [phone] Test Performed by [facility], [address] [place] [address] [facility] Work Phone: [phone] Test Performed by [facility], [address] [place] [address] [employer] Work Phone: [phone] PhosphorusOrdered By: Darell Sanches on 10-24-2019 Phosphate [Mass/Vol] 5.8 mg/dL High 2.5 - 4 .5 mg/dL [employer] Work Phone: [phone] Protime-INROrdered By: Darren Patel on 10-24-2019 INR Coag (PPP) [Relative time] 1.1 {INR} [employer] Work Phone: [phone] Comment on above: Recommended Anticoag ulant Therapy: [...] - 12 s [facility] Work Phone: [phone] Comment on above: . Basic Metabolic PanelOrdered By: Darell Sanches on 10-23-2019 Anion gap [Moles/Vol] 17 mmol/L [facility] Work Phone: [phone] Calcium [Mass/Vol] 8.6 mg/dL 8.4 - 10. 4 mg/dL [facility] Work Phone: [phone] Chloride [Moles/Vol] 94 mmol/L Low 98 - 10 7 mmol/L [facility] Work Phone: [phone] CO2 [Moles/Vol] 24 mmol/L 22 - 30 mmol/L [facility] Work Phone: [phone] Creatinine [Mass/Vol] 11.03 mg/dL High 0.52 - 1.25 mg/dL [facility] Work Phone: [phone] EGFR IF NonAfrican Venezuelan 4.9 mL/min >60 [facility] Work Phone: [phone] Comment on above: Source- MDRD equatio n with creatinine calibration to IDMS(NKDEP) eGFR not recommended for drug dose adjustment GFR/1.73 sq M.predicted among blacks MDRD (S/P/Bld) [Vol rate/Area] 5.9 mL/min/{1.73_m2} >60 [facility] Work Phone: [phone] Glucose [Mass/Vol] 97 mg/dL 70 - 100 mg/dL [facility] Work Phone: [phone] Potassium [Moles/Vol] 3.9 mmol/L 3.5 - 5.1 mmol/L [facility] Work Phone: [phone] Sodium [Moles/Vol] 135 mmol/L 135 - 145 mmol/L [facility] Work Phone: [phone] Urea nitrogen [Mass/Vol] 61 mg/dL High 7 - 20 mg/d L [facility] Work Phone: [phone] CBC Auto DifferentialOrdered By: Darell Sanches on 10-23-2019 Absolute Baso # 0.1 10*3/uL 0 - 0.2 10*3/uL [facility] Work Phone: Absolute Neut # 7.1 10*3/uL High 1.8 - 7 10*3/uL [facility] Work Phone: [phone] Basophils/100 WBC (Bld) 1.0 % 0 - 2 % S [facility] Work Phone: Eosinophils (Bld) [#/Vol] 0.5 10*3/uL 0 - 0.5 10*3/uL [facility] Work Phone: Eosinophils/100 WBC (Bld) 4.7 % 1 - 6 % [facility] Work Phone: Erythrocyte distribution width (RBC) [Ratio] 13.8 % 11.5 - 14.5 % [facility] Work Phone: 1 Granulocytes/100 WBC (Bld) 65.3 % 40 - 80 % [facility] Work Phone: Hematocrit (Bld) [Volume fraction] 27.6 % Low 40 - 52 % [facility] Work Phone: Hemoglobin (Bld) [Mass/Vol] 9.5 g/dL Low 13 - 18 g/dL [facility] Work Phone: 1 Interpretation and review of laboratory results Abnormal [facility] Work Phone: Lymphocytes (Bld) [#/Vol] 1.9 10*3/uL 1 - 4.3 10*3/uL [facility] Work Phone: Lymphocytes/100 WBC (Bld) 17.3 % Low 20 - 40 % [facility] Work Phone: MCH (RBC) [Entitic mass] 29.7 pg 26 - 34 pg [facility] Work Phone: 22 MCHC 34.3 % 32 - 36 % [facility] Work Phone: MCV (RBC) [Entitic vol] 86.6 fL 80 - 98 fL [facility] [employer] Work Phone: Monocytes (Bld) [#/Vol] 1.3 10*3/uL High 0 - 0.8 10*3/uL [facility] Work Phone: 22 Monocytes/100 WBC (Bld) 11.7 % High 2 - 10 % [facility] Work Phone: 1 Platelet mean volume (Bld) [Entitic vol] 7.7 fL 7.4 - 10.4 fL [facility] Work Phone: Platelets (Bld) [#/Vol] 248 10*3/uL 140 - 440 10*3/uL [facility] Work Phone: RBC (Bld) [#/Vol] 3.18 10*6/uL Low 4.4 - 5.9 10*6/uL [facility] Work Phone: WBC (Bld) [#/Vol] 10.8 10*3/uL High 3.6 - 10.7 10*3/uL [facility] Work Phone: Test Performed by [facility] Work Phone: MAGNESIUMOrdered By: Darell Sanches on 10-23-2019 Magnesium [Mass/Vol] 2.1 mg/dL 1.6 - 2 .3 mg/dL [facility] Work Phone: No Panel InformationOrdered By: Darell Sanches on 10-23-2019 Interpretation and review of laboratory results Abnormal [facility] Work Phone: Test Performed by [employer], [address] [place] [address] Work Phone: PhosphorusOrdered By: Darell Sanches on 10-23-2019 Phosphate [Mass/Vol] 9.5 mg/dL High 2.5 - 4 .5 mg/dL [facility] Work Phone: Basic Metabolic PanelOrdered By: Delon Jessica on 10-22-2019 Anion gap [Moles/Vol] 14 mmol/L [facility] Work Phone: Calcium [Mass/Vol] 8.9 mg/dL 8.4 - 10. 4 mg/dL [facility] Work Phone: Chloride [Moles/Vol] 95 mmol/L Low 98 - 10 7 mmol/L [facility] Work Phone: CO2 [Moles/Vol] 28 mmol/L 22 - 30 mmol/L [facility] Work Phone: [phone] Creatinine [Mass/Vol] 8.75 mg/dL High 0.52 - 1.25 mg/dL [facility] Work Phone: [phone] EGFR IF NonAfrican Venezuelan 6.4 mL/min >60 [facility] Work Phone: [phone] Comment on above: Source- MDRD equatio n with creatinine calibration to IDMS(NKDEP) eGFR not recommended for drug dose adjustment GFR/1.73 sq M.predicted among blacks MDRD (S/P/Bld) [Vol rate/Area] 7.7 mL/min/{1.73_m2} >60 [facility] Work Phone: [phone] Glucose [Mass/Vol] 94 mg/dL 70 - 100 mg/dL [facility] Work Phone: [phone] Potassium [Moles/Vol] 4.3 mmol/L 3.5 - 5.1 mmol/L [facility] Work Phone: [phone] Sodium [Moles/Vol] 137 mmol/L 135 - 145 mmol/L [facility] Work Phone: [phone] Urea nitrogen [Mass/Vol] 53 mg/dL High 7 - 20 mg/d L [facility] Work Phone: [phone] CBC Auto DifferentialOrdered By: Delon Jessica on 10-22-2019 Absolute Baso # 0.1 10*3/uL 0 - 0.2 10*3/uL [facility] Work Phone: [phone] Absolute Neut # 5.9 10*3/uL 1.8 - 7 10*3/uL [facility] Work Phone: [phone] Basophils/100 WBC (Bld) 0.9 % 0 - 2 % S [facility] Work Phone: [phone] Eosinophils (Bld) [#/Vol] 0.3 10*3/uL 0 - 0.5 10*3/uL [facility] Work Phone: [phone] Eosinophils/100 WBC (Bld) 3.0 % 1 - 6 % [facility] Work Phone: [phone] Erythrocyte distribution width (RBC) [Ratio] 14.2 % 11.5 - 14.5 % [facility] Work Phone: [phone] Granulocytes/100 WBC (Bld) 63.0 % 40 - 80 % [facility] Work Phone: 1 Hematocrit (Bld) [Volume fraction] 27.7 % Low 40 - 52 % [employer] Work Phone: 1 Hemoglobin (Bld) [Mass/Vol] 9.4 g/dL Low 13 - 18 g/dL [facility] Work Phone: 1 Interpretation and review of laboratory results Abnormal [employer] Work Phone: 1 Lymphocytes (Bld) [#/Vol] 1.6 10*3/uL 1 - 4.3 10*3/uL [facility] Work Phone: 1 Lymphocytes/100 WBC (Bld) 17.2 % Low 20 - 40 % [employer] Work Phone: 1 MCH (RBC) [Entitic mass] 29.3 pg 26 - 34 pg [facility] Work Phone: MCHC 33.8 % 32 - 36 % [employer] Work Phone: 1 MCV (RBC) [Entitic vol] 86.7 fL 80 - 98 fL [facility] [employer] Work Phone: Monocytes (Bld) [#/Vol] 1.5 10*3/uL High 0 - 0.8 10*3/uL [employer] Work Phone: 1 22 Monocytes/100 WBC (Bld) 15.9 % High 2 - 10 % [facility] [employer] Work Phone: Platelet mean volume (Bld) [Entitic vol] 8.0 fL 7.4 - 10.4 fL [facility] Work Phone: 1 22 Platelets (Bld) [#/Vol] 264 10*3/uL 140 - 440 10*3/uL [facility] Work Phone: 22 RBC (Bld) [#/Vol] 3.20 10*6/uL Low 4.4 - 5.9 10*6/uL [facility] Work Phone: 1 22 WBC (Bld) [#/Vol] 9.3 10*3/uL 3.6 - 10.7 10*3/uL [facility] Work Phone: 1 Test Performed by [employer], [address] [place], [place] [address] [facility] Work Phone: Calcium, IonizedOrdered By: Delon Jessica on 10-22-2019 Interpretation and review of laboratory results Abnormal [facility] Work Phone: Ionized Ca 4.20 mg/dL Low 4.3 - 5.2 mg/dL [facility] Work Phone: pH (Bld) 7.43 [pH] [facility] Work Phone: 1 Test Performed by [employer], [address] [place], [place] [id number] [place], [place] [address]A Work Phone: FOLATEOrdered By: Earlene deluna on 10-22-2019 Folate 9.2 ng/mL 2.8 - 20 ng/mL [facility] Work Phone: Glomerular Basement Membrane (GBM) Antibody IgGOrdered By: Jeana Pedraza on 10-22-2019 GBM Ab, IgG (IFA) Negative Negative NA [facility] Work Phone: Comment on above: INTERPRETIVE INFORMA [...] biopsy. Test developed and characteristics determined by [employer]. See Compliance Statement D: [employer]/CS Performed by [employer], [address] [place] [id number] www.[email or web address], Malvin Slade MD, Lab. Director Iron and TIBCOrdered By: Al Irving on 10-22-2019 Interpretation and review of laboratory results Abnormal [facility] Work Phone: 1 Iron [Mass/Vol] 64 ug/dL 49 - 181 ug/dL [facility] Work Phone: Sat 27 % 15 - 50 % [facility] Work Phone: TIBC 234 ug/dL Low 261 - 497 ug/dL [facility] Work Phone: 1 Test [facility] by [facility], [address] Work Phone: MagnesiumOrdered By: Delon Jessica on 10-22-2019 Magnesium [Mass/Vol] 2.0 mg/dL 1.6 - 2 .3 mg/dL [facility] Work Phone: 1 No Panel InformationOrdered By: Earlene Irving on 10-22-2019 Test [facility] by [facility], [address] Work Phone: 1 No Panel InformationOrdered By: Delon Jessica on 10-22-2019 Interpretation and review of laboratory results Abnormal [facility] Work Phone: Test Performed by [facility], [facility] [address] Work Phone: PhosphorusOrdered By: Patrick Jessica on 10-22-2019 Phosphate [Mass/Vol] 8.7 mg/dL High 2.5 - 4 .5 mg/dL [facility] Work Phone: T4, FREEOrdered By: Earlene toure on 10-22-2019 Free T4 [Mass/Vol] 1.16 ng/dL 0.78 - 2. 19 ng/dL [facility] Work Phone: 1 Test Performed by [facility], [address] Work Phone: TSH without ReflexOrdered By : Earlene Irving on 10-22-2019 TSH 0.836 u[IU]/mL 0.465 - 4.68 u[IU]/mL [facility] Work Phone: Test Performed by [facility], [address] Work Phone: VL RENAL ARTERIAL DUPLEX COM PLETEOrdered By: Brett Encarnacion on 10-22-2019 [facility] Renal Artery Duplex Ordering Physician: Brett Encarnacion Feeder Worker Power Unit Operator: Laura Walsh Interpreting Physician: Luciano Shannon Location: [facility] Indications: Hypertension. Smoking history. Acute Kidney Injury [...] supine position. Images were obtained using a [employer] E9 vascular ultrasound machine. The abdominal aorta, [...] + Kidney le (more content not included)... [employer] Work Phone: MikeJenna Incoming Cardiology Results From Tia/Mabel - 10/22/2019 3:01 PM EST [facility] Renal Artery Duplex Ordering Physician: Brett Encarnacion [employer] Work[employer] Power Unit Operator: Laura Walsh Interpreting Physician: Luciano Shannon Location: [facility] Indications: Hypertension. Smoking history. Acute Kidney Injury [...] supine position. Images were obtained using a [employer] E9 vascular ultrasound machine. The abdominal aorta, [...] Luciano Shannon 10/22/2019 15:01 [facility] Work Phone: [phone] Vitamin [id number] By: Akin Irving on 10-22-2019 Cobalamin (Vitamin B12) [Mass/Vol] 959 pg/mL High 239 - 931 pg/mL [facility] Work Phone: [phone] Interpretation and review of laboratory results Abnormal [facility] Work Phone: Basic Metabolic PanelOrdered By: Delon Jessica on 10-21-2019 Anion gap [Moles/Vol] 16 mmol/L [facility] Work Phone: [phone] Calcium [Mass/Vol] 8.7 mg/dL 8.4 - 10. 4 mg/dL [facility] Work Phone: [phone] Chloride [Moles/Vol] 94 mmol/L Low 98 - 10 7 mmol/L [facility] Work Phone: [phone] CO2 [Moles/Vol] 25 mmol/L 22 - 30 mmol/L [facility] Work Phone: [phone] Creatinine [Mass/Vol] 11.16 mg/dL High 0.52 - 1.25 mg/dL [facility] Work Phone: [phone] EGFR IF NonAfrican Venezuelan 4.8 mL/min >60 [facility] Work Phone: Comment on above: Source- MDRD equatio n with creatinine calibration to IDMS(NKDEP) eGFR not recommended for drug dose adjustment GFR/1.73 sq M.predicted among blacks MDRD (S/P/Bld) [Vol rate/Area] 5.8 mL/min/{1.73_m2} >60 [facility] Work Phone: Glucose [Mass/Vol] 103 mg/dL High 70 - 100 mg/dL [facility] Work Phone: [phone] Potassium [Moles/Vol] 4.9 mmol/L 3.5 - 5.1 mmol/L [facility] Work Phone: [phone] Sodium [Moles/Vol] 135 mmol/L 135 - 145 mmol/L [facility] Work Phone: [phone] Urea nitrogen [Mass/Vol] 83 mg/dL High 7 - 20 mg/d L [facility] Work Phone: [phone] CBC Auto DifferentialOrdered By: Delon Jessica on 10-21-2019 Absolute Baso # 0.1 10*3/uL 0 - 0.2 10*3/uL [facility] Work Phone: [phone] Absolute Neut # 6.4 10*3/uL 1.8 - 7 10*3/uL [facility] Work Phone: [phone] Basophils/100 WBC (Bld) 0.9 % 0 - 2 % [facility] Work Phone: [phone] Eosinophils (Bld) [#/Vol] 0.2 10*3/uL 0 - 0.5 10*3/uL [facility] Work Phone: [phone] Eosinophils/100 WBC (Bld) 2.5 % 1 - 6 % [facility] Work Phone: [phone] Erythrocyte distribution width (RBC) [Ratio] 14.8 % High 11.5 - 14.5 % [facility] Work Phone: [phone] Granulocytes/100 WBC (Bld) 64.7 % 40 - 80 % [facility] Work Phone: [phone] Hematocrit (Bld) [Volume fraction] 27.6 % Low 40 - 52 % [facility] Work Phone: [phone] Hemoglobin (Bld) [Mass/Vol] 9.7 g/dL Low 13 - 18 g/dL [facility] Work Phone: [phone] Comment on above: Post Transfusion Interpretation and review of laboratory results Abnormal [facility] Work Phone: [phone] Lymphocytes (Bld) [#/Vol] 1.8 10*3/uL 1 - 4.3 10*3/uL [facility] Work Phone: [phone] Lymphocytes/100 WBC (Bld) 18.5 % Low 20 - 40 % [facility] Work Phone: 1) MCH (RBC) [Entitic mass] 30.0 pg 26 - 34 pg [facility] Work Phone: MCHC 35.3 % 32 - 36 % [facility] Work Phone: 1 MCV (RBC) [Entitic vol] 84.8 fL 80 - 98 fL [facility] Work Phone: [phone]( Monocytes (Bld) [#/Vol] 1.3 10*3/uL High 0 - 0.8 10*3/uL [facility] Work Phone: 1) Monocytes/100 WBC (Bld) 13.4 % High 2 - 10 % [facility] Work Phone: Platelet mean volume (Bld) [Entitic vol] 7.8 fL 7.4 - 10.4 fL [facility] Work Phone: ) Platelets (Bld) [#/Vol] 299 10*3/uL 140 - 440 10*3/uL [facility] Work Phone: RBC (Bld) [#/Vol] 3.25 10*6/uL Low 4.4 - 5.9 10*6/uL [facility] Work Phone: WBC (Bld) [#/Vol] 9.8 10*3/uL 3.6 - 10.7 10*3/uL [facility] Work Phone: Test Performed by [employer], [address] [place] [address]. [address] Work Phone: 1 Calcium, IonizedOrdered By: Delon Jessica on 10-21-2019 Interpretation and review of laboratory results Abnormal [facility] Work Phone: Ionized Ca 4.10 mg/dL Low 4.3 - 5.2 mg/dL [facility] Work Phone: 1 pH (Bld) 7.41 [pH] [facility] Work Phone: 1 Test Performed by [employer], [address] [place] [address] Str[address] Work Phone: [phone] MagnesiumOrdered By: Delon Jessica on 10-21-2019 Magnesium [Mass/Vol] 1.9 mg/dL 1.6 - 2 .3 mg/dL [facility] Work Phone: No Panel InformationOrdered By: Delon Jessica on 10-21-2019 Interpretation and review of laboratory results Abnormal [facility] Work Phone: [phone] Test Performed by [employer], [address] [place] [address] [facility] Work Phone: [phone] PERIPHERAL BLOOD SMEAR, PATH REVIEWOrdered By: Jeana Pedraza on 10-21-2019 Peripheral Smear see below [employer] Work Phone: Comment on above: See report under Fredy gical Pathology. Test Performed by [employer], [address] [address] [facility] Work Phone: [phone] PhosphorusOrdered By: Patrick Jessica on 10-21-2019 Phosphate [Mass/Vol] 9.2 mg/dL High 2.5 - 4 .5 mg/dL [employer] Work Phone: US RETROPERITONEAL COMPLETEO rdered By: Randolph Liz on 10-21-2019 Patient Name: GLENN SNYDER ---Ultrasound--- Exam Date/Time 10/21/2019 15:32:01 EST Exam US Retroperitoneal Complete Ordering Physician [id number] Accession Number [id number] CPT4 Codes 66114 () Reason For Exam blossom Report US [...] [facility] Incoming Rad[facility] Results From [facility] - 10/21/2019 7:32 PM EST Patient Name: GLENN SNYDER ---Ultrasound--- Exam Date/Time 10/21/2019 15:32:01 EST Exam US Retroperitoneal Complete Ordering Physician RANDOLPH PALAFOX Accession Number [id number] CPT4 Codes 41418 () Reason For Exam blossom Report US [...] Ordering Physician MD ENCARNACION MATTHEW Accession Number [id number] CPT4 Codes 55885 () Reason For Exam vomiting Report ABDOMEN [...] WENDELL Transcribed Date and Time: 10/21/2019 6:30 [facility] Work Phone: Mike, [facility] Incoming Radiology Results From [facility] - 10/21/2019 6:30 PM EST Patient Name: GLENN SNYDER ---Diagnostic Radiology--- Exam Date/Time 10/21/2019 18:02:19 EST Exam CR Abdomen AP Ordering Physician MD ENCARNACION MATTHEW Accession Number [id number] CPT4 Codes 40782 () Reason For Exam vomiting Report ABDOMEN [...] WENDELL Transcribed Date and Time: 10/21/2019 6:30 [facility] Work Phone: ANAOrdered By: Jeana Pedraza on 10-20-2019 CIARAN TITER <1:40 <1:40 {titer} [employer] Work Phone: Test Performed by [employer], [address] [place], [place] [address]A Work Phone: Anti-Neutrophilic Cytoplasmi c AntibodyOrdered By: Jeana Pedraza on 10-20-2019 C-ANCA Not detected Not-Detected {titer} [facility] Work Phone: p-ANCA Titer Not detected Not-Detected {titer} [facility] Work Phone: Test Performed by [facility] [address] [address] [facility] Work Phone: Basic Metabolic PanelOrdered By: Brett Encarnacion on 10-20-2019 Anion gap [Moles/Vol] 15 mmol/L [facility] Work Phone: Calcium [Mass/Vol] 8.4 mg/dL 8.4 - 10. 4 mg/dL [facility] Work Phone: Chloride [Moles/Vol] 94 mmol/L Low 98 - 10 7 mmol/L [facility] Work Phone: CO2 [Moles/Vol] 26 mmol/L 22 - 30 mmol/L [facility] Work Phone: Creatinine [Mass/Vol] 9.4 mg/dL High 0.52 - 1.25 mg/dL [facility] Work Phone: EGFR IF NonAfrican [place] 5.9 mL/min >60 [facility] Work Phone: Comment on above: Source- MDRD equatio n with creatinine calibration to IDMS(NKDEP) eGFR not recommended for drug dose adjustment GFR/1.73 sq M.predicted among blacks MDRD (S/P/Bld) [Vol rate/Area] 7.1 mL/min/{1.73_m2} >60 [facility] Work Phone: Glucose [Mass/Vol] 110 mg/dL High 70 - 100 mg/dL [facility] Work Phone: Interpretation and review of laboratory results Abnormal [facility] Work Phone: Potassium [Moles/Vol] 4.0 mmol/L 3.5 - 5.1 mmol/L [facility] Work Phone: [phone] Sodium [Moles/Vol] 135 mmol/L 135 - 145 mmol/L [facility] Work Phone: [phone] Urea nitrogen [Mass/Vol] 76 mg/dL High 7 - 20 mg/d L [facility] Work Phone: [phone] Test Performed by [employer], [address] [address] [place], [place] [address] [facility] Work Phone: [phone] Metabolic PanelOrdered By: Delon Jessica on 10-20-2019 Anion gap [Moles/Vol] 18 mmol/L [facility] Work Phone: [phone] Calcium [Mass/Vol] 7.9 mg/dL Low 8.4 - 10. 4 mg/dL [facility] Work Phone: [phone] Chloride [Moles/Vol] 95 mmol/L Low 98 - 10 7 mmol/L [facility] Work Phone: [phone] CO2 [Moles/Vol] 24 mmol/L 22 - 30 mmol/L [facility] Work Phone: [phone] Creatinine [Mass/Vol] 13.53 mg/dL High 0.52 - 1.25 mg/dL [facility] Work Phone: [phone] IF NonAfrican Venezuelan 3.9 mL/min >60 [facility] Work Phone: [phone] Comment on above: Source- MDRD equatio n with creatinine calibration to IDMS(NKDEP) eGFR not recommended for drug dose adjustment GFR/1.73 sq M.predicted among blacks MDRD (S/P/Bld) [Vol rate/Area] 4.7 mL/min/{1.73_m2} >60 [facility] Work Phone: [phone] Glucose [Mass/Vol] 102 mg/dL High 70 - 100 mg/dL [facility] Work Phone: [phone] Interpretation and review of laboratory results Abnormal [facility] Work Phone: [phone] Potassium [Moles/Vol] 4.7 mmol/L 3.5 - 5.1 mmol/L [facility] Work Phone: [phone] Sodium [Moles/Vol] 136 mmol/L 135 - 145 mmol/L [facility] Work Phone: [phone] Urea nitrogen [Mass/Vol] 123 mg/dL High 7 - 20 mg/d L [facility] Work Phone: Test Performed by [facility], [address] [place], [place] [address] [employer] Work Phone: CBC Auto DifferentialOrdered By: Delon Jessica on 10-20-2019 Absolute Baso # 0.0 10*3/uL 0 - 0.2 10*3/uL [facility] Work Phone: Absolute Neut # 6.2 10*3/uL 1.8 - 7 10*3/uL [facility] Work Phone: Basophils/100 WBC (Bld) 0.4 % 0 - 2 % S [facility] Work Phone: Eosinophils (Bld) [#/Vol] 0.1 10*3/uL 0 - 0.5 10*3/uL [employer] Work Phone: Eosinophils/100 WBC (Bld) 1.1 % 1 - 6 % [employer] Work Phone: Erythrocyte distribution width (RBC) [Ratio] 13.4 % 11.5 - 14.5 % [employer] Work Phone: Granulocytes/100 WBC (Bld) 69.5 % 40 - 80 % [employer] Work Phone: Hematocrit (Bld) [Volume fraction] 19.3 % Low 40 - 52 % [employer] Work Phone: Hemoglobin (Bld) [Mass/Vol] 6.6 g/dL Critically low 13 - 18 g/dL [facility] Work Phone: Interpretation and review of laboratory results Abnormal [employer] Work Phone: Lymphocytes (Bld) [#/Vol] 1.6 10*3/uL 1 - 4.3 10*3/uL [facility] Work Phone: Lymphocytes/100 WBC (Bld) 18.3 % Low 20 - 40 % [facility] Work Phone: MCH (RBC) [Entitic mass] 29.4 pg 26 - 34 pg [facility] Work Phone: 1 MCHC 34.1 % 32 - 36 % [employer] Work Phone: 1 MCV (RBC) [Entitic vol] 86.2 fL 80 - 98 fL S [facility] Work Phone: Monocytes (Bld) [#/Vol] 1.0 10*3/uL High 0 - 0.8 10*3/uL [employer] Work Phone: Monocytes/100 WBC (Bld) 10.7 % High 2 - 10 % S [facility] Work Phone: Platelet mean volume (Bld) [Entitic vol] 7.4 fL 7.4 - 10.4 fL [employer] Work Phone: Platelets (Bld) [#/Vol] 267 10*3/uL 140 - 440 10*3/uL [employer] Work Phone: RBC (Bld) [#/Vol] 2.24 10*6/uL Low 4.4 - 5.9 10*6/uL [employer] Work Phone: WBC (Bld) [#/Vol] 9.0 10*3/uL 3.6 - 10.7 10*3/uL [employer] Work Phone: Calcium, IonizedOrdered By: Delon Jessica on 10-20-2019 Interpretation and review of laboratory results Abnormal [employer] Work Phone: Ionized Ca 3.80 mg/dL Low 4.3 - 5.2 mg/dL [employer] Work Phone: pH (Bld) 7.41 [pH] [employer] Work Phone: Test Performed by [facility], [address] [place] [id number] [place], [place] [address] Work Phone: Hemoglobin and Hematocrit, B loodOrdered By: Brett Encarnacion on 10-20-2019 Hematocrit (Bld) [Volume fraction] 25.2 % Low 40 - 52 % [employer] Work Phone: Hemoglobin (Bld) [Mass/Vol] 9.0 g/dL Low 13 - 18 g/dL [employer] Work Phone: Interpretation and review of laboratory results Abnormal [facility] Work Phone: 1 [facility] by [facility], [address] [place], [place] [address]A Work Phone: Hemoglobin and Hematocrit, B loodOrdered By: Delon Jessica on 10-20-2019 Hematocrit (Bld) [Volume fraction] 19.6 % Low 40 - 52 % [facility] Work Phone: Hemoglobin (Bld) [Mass/Vol] 6.7 g/dL Critically low 13 - 18 g/dL [facility] Work Phone: 1 Interpretation and review of laboratory results Abnormal [facility] Work Phone: Test Performed by [facility], [address] [place] [address] Work Phone: Laboratory - Blood bankOrder ed By: Delon Jessica on 10-20-2019 ABO and Rh group Nom (Bld) 9500 [facility] Work Phone: MagnesiumOrdered By: Delon Jessica on 10-20-2019 Magnesium [Mass/Vol] 1.8 mg/dL 1.6 - 2 .3 mg/dL [facility] Work Phone: No Panel InformationOrdered By: Delon Jessica on 10-20-2019 Test Performed by [facility], [address] [place], [place] [address]A Work Phone: Test Performed by [facility], [address] [place], [place] [address]A Work Phone: PREPARE RBC (CROSSMATCH), 2 UnitsOrdered By: Delon Jessica on 10-20-2019 Blood product unit ID (Dose) [#] [id number] [facility] Work Phone: Blood product unit ID (Dose) [#] [id number] [facility] Work Phone: Dispense Status Blood Bank transfused [facility] Work Phone: Expiration Date [facility] Work Phone: Product Code Blood Bank [id number] [facility] Work Phone: [facility] Work Phone: PhosphorusOrdered By: Patrick Jessica on 10-20-2019 Interpretation and review of laboratory results Abnormal [facility] Work Phone: Phosphate [Mass/Vol] 12.3 mg/dL High 2.5 - 4 .5 mg/dL [facility] Work Phone: RBC MORPHOLOGYOrdered By: Caleb Jessica on 10-20-2019 Hypochromia Slight [facility] Work Phone: Poikilocytes Slight [facility] Work Phone: RBC morphology finding Nom (Bld) ABNORMAL [facility] Work Phone: Surgical PathologyOrdered By : Jeana Pedraza on 10-20-2019 Surgical Pathology Report SEE BELOW [facility] Work Phone: [phone] [facility] PATHOLOGY AND LABORATORY MEDICINE [address] [place] [address] FINAL PERIPHERAL BLOOD REPORT NAME: GLENN SNYDER : 1965 53 Y Michelle BILLLATONYA NO.: [id number] LOCATION: [place] [address] 5 PROCEDURE 10/19/2019 DATE: SURGEON: JEANA PEDRAZA MD RECEIVED DATE: 10/20/2019 ATTENDING BRETT ENCARNACION REPORT DATE: 10/20/2019 : COPIES TO: DIAGNOSIS: NORMOCYTIC ANEMIA WITH ANISOCYTOSIS, INCLUDING SCHISTOCYTES AND MILD AGGLUTINATION, RULE OUT ANEMIA OF CHRONIC INFLAMMATION/RENAL DISEASE, IRON/NUTRITIONAL DEFICIENCIES, COAGULOPATHY AND/OR PARAPROTEINEMIA NO BLASTS OR DYSGRANULOPOIESIS IS SEEN. CITY TREASURER/CITY TREASURER Signature> YOHANNES DIAL M.D. CLINICAL INFORMATION: Peripheral [...] characteristics determined by the clinical laboratories of [facility]. They have not been cleared by the [...] specimens. DEPARTMENT OF PATHOLOGY AND LABORATORY MEDICINE [place], [place] [address] [employer] Work Phone: Add On Lab TestOrdered By: Michelle Encarnacion on 10-19-2019 Add On Rejected [employer] Work Phone: Test Performed by [facility], [address] [place], [place], [place] [address] [employer] Work Phone: Add On Lab TestOrdered By: Cecil Nieves on 10-19-2019 Add On Accepted [facility] Work Phone: 1 Comment on above: Specimen available & acceptable for analysis. Test Performed by [facility], [address] [place], [place] [address] [facility] Work Phone: 1 Add On Accepted [facility] Work Phone: Comment on above: Specimen available & acceptable for analysis. Test Performed by [facility], [address] [place], [place] [address] [facility] Work Phone: 1 Basic Metabolic PanelOrdered By: Brett Encarnacion on 10-19-2019 Anion gap [Moles/Vol] 20 mmol/L [facility] Work Phone: 1 Calcium [Mass/Vol] 8.4 mg/dL 8.4 - 10. 4 mg/dL [facility] Work Phone: 1 Chloride [Moles/Vol] 96 mmol/L Low 98 - 10 7 mmol/L [facility] Work Phone: CO2 [Moles/Vol] 18 mmol/L Low 22 - 30 mmol/L [facility] Work Phone: 1 Creatinine [Mass/Vol] 12.26 mg/dL High 0.52 - 1.25 mg/dL [facility] Work Phone: 1 EGFR IF NonAfrican Venezuelan 4.3 mL/min >60 [facility] Work Phone: Comment on above: Source- MDRD equatio n with creatinine calibration to IDMS(NKDEP) eGFR not recommended for drug dose adjustment GFR/1.73 sq M.predicted among blacks MDRD (S/P/Bld) [Vol rate/Area] 5.2 mL/min/{1.73_m2} >60 [facility] Work Phone: 1 Glucose [Mass/Vol] 109 mg/dL High 70 - 100 mg/dL [facility] Work Phone: 1 Interpretation and review of laboratory results Abnormal [facility] Work Phone: Potassium [Moles/Vol] 4.4 mmol/L 3.5 - 5.1 mmol/L [facility] Work Phone: 1 Sodium [Moles/Vol] 134 mmol/L Low 135 - 145 mmol/L [facility] Work Phone: Urea nitrogen [Mass/Vol] 118 mg/dL High 7 - 20 mg/d L [facility] Work Phone: 1 Test Performed by [facility], [address] [place], [place] [address] [facility] Work Phone: Blood Occult Stool Screen #1 Ordered By: Callie Nieves on 10-19-2019 Hemoglobin.gastrointesti nal Ql (Stl) Negative Negative NA [facility] Work Phone: 1 Test Performed by [facility], [address] [place], [place] [address] [facility] Work Phone: C3 ComplementOrdered By: Nadia Pedraza on 10-19-2019 C3 Complement 115 mg/dL 85 - 165 mg/dL [facility] Work Phone: C4 ComplementOrdered By: Nadia Pedraza on 10-19-2019 C4 Complement 37 mg/dL 14 - 44 mg/dL [facility] Work Phone: CBC Auto DifferentialOrdered By: Jeana Pedraza on 10-19-2019 Absolute Baso # 0.0 10*3/uL 0 - 0.2 10*3/uL [facility] Work Phone: Absolute Neut # 7.7 10*3/uL High 1.8 - 7 10*3/uL [facility] Work Phone: 22 Basophils/100 WBC (Bld) 0.1 % 0 - 2 % S [facility] Work Phone: Eosinophils (Bld) [#/Vol] 0.0 10*3/uL 0 - 0.5 10*3/uL [facility] Work Phone: Eosinophils/100 WBC (Bld) 0.0 % Low 1 - 6 % [facility] Work Phone: Erythrocyte distribution width (RBC) [Ratio] 13.1 % 11.5 - 14.5 % [facility] Work Phone: 1 22 Granulocytes/100 WBC (Bld) 93.1 % High 40 - 80 % [facility] Work Phone: 1 Hematocrit (Bld) [Volume fraction] 26.9 % Low 40 - 52 % [facility] Work Phone: 1 Hemoglobin (Bld) [Mass/Vol] 9.1 g/dL Low 13 - 18 g/dL [facility] Work Phone: 1 Interpretation and review of laboratory results Abnormal [facility] Work Phone: 1 Lymphocytes (Bld) [#/Vol] 0.4 10*3/uL Low 1 - 4.3 10*3/uL [facility] Work Phone: 1) Lymphocytes/100 WBC (Bld) 5.1 % Low 20 - 40 % [facility] Work Phone: 1 MCH (RBC) [Entitic mass] 29.2 pg 26 - 34 pg [facility] Work Phone: ) MCHC 33.8 % 32 - 36 % [facility] Work Phone: 1 MCV (RBC) [Entitic vol] 86.5 fL 80 - 98 fL S [facility] Work Phone: 1 Monocytes (Bld) [#/Vol] 0.1 10*3/uL 0 - 0.8 10*3/uL [facility] Work Phone: 1) 22 Monocytes/100 WBC (Bld) 1.7 % Low 2 - 10 % S [facility] Work Phone: Platelet mean volume (Bld) [Entitic vol] 8.0 fL 7.4 - 10.4 fL [facility] Work Phone: 1) 22 Platelets (Bld) [#/Vol] 246 10*3/uL 140 - 440 10*3/uL [facility] Work Phone: 22 RBC (Bld) [#/Vol] 3.11 10*6/uL Low 4.4 - 5.9 10*6/uL [facility] Work Phone: 1) 22 WBC (Bld) [#/Vol] 8.3 10*3/uL 3.6 - 10.7 10*3/uL [facility] Work Phone: Test Performed by [facility], [address] [place], [place], [place] [address] [employer] Work Phone: CT Abdomen Pelvis Wo Contras tOrdered By: Callie Nieves on 10-19-2019 Patient Name: GLENN SNYDER ---CT--- Exam Date/Time 10/19/2019 08:12:[address] Abdomen/Pelvis (No PO, No IV) Ordering Physician DO NIEVES DAVID J Accession Number [id number] CPT4 Codes 37820 (CT Abdomen/Pelvis (No PO, No IV)) Reason [...] bilateral renal atrophy. No urologic calcification. 3. Epkb-zf-cbdnsebw diverticulosis. No acute diverticulitis. Report Dictated on --- Final --- Dictating Physician: MD BUTCHER ANTHONY J Signed Date and Time: 10/19/2019 8:40 am Signed by: MD BUTCHER ANTHONY J Transcribed Date and Time: 10/19/2019 8:41 [facility] Work Phone: Mike, [facility] Incoming Radiology Results From [facility] - 10/19/2019 8:42 AM EST Patient Name: GLENN SNYDER ---CT--- Exam Date/Time 10/19/2019 08:12:[address] Abdomen/Pelvis (No PO, No IV) Ordering Physician DO NIEVES DAVID J Accession Number [id number] CPT4 Codes 72419 (CT Abdomen/Pelvis (No PO, No IV)) Reason [...] bilateral renal atrophy. No urologic calcification. 3. Duns-gi-egoyqqxv diverticulosis. No acute diverticulitis. Report Dictated on --- Final --- Dictating Physician: MD BUTCHER ANTHONY J Signed Date and Time: 10/19/2019 8:40 am Signed by: MD BUTCHER ANTHONY J Transcribed Date and Time: 10/19/2019 8:41 [facility] Work Phone: [phone] Comprehensive Metabolic Pane lOrdered By: Callie Nieves on 10-19-2019 Albumin [Mass/Vol] 3.9 g/dL 3.5 - 5 g/dL [facility] Work Phone: [phone] ALP [Catalytic activity/Vol] 58 U/L 38 - 126 U/L [facility] Work Phone: [phone] ALT [Catalytic activity/Vol] 27 U/L 13 - 69 U/L [facility] Work Phone: [phone] Anion gap [Moles/Vol] 22 mmol/L [facility] Work Phone: [phone] AST [Catalytic activity/Vol] 41 U/L 15 - 46 U/L [facility] Work Phone: [phone] Bilirubin [Mass/Vol] 0.5 mg/dL 0.2 - 1 .3 mg/dL [facility] Work Phone: [phone] Calcium [Mass/Vol] 8.0 mg/dL Low 8.4 - 10. 4 mg/dL [facility] Work Phone: [phone] Chloride [Moles/Vol] 106 mmol/L 98 - 10 7 mmol/L [facility] Work Phone: CO2 [Moles/Vol] 8 mmol/L Low 22 - 30 mmol/L [facility] Work Phone: [phone] Creatinine [Mass/Vol] 17.04 mg/dL High 0.52 - 1.25 mg/dL [facility] Work Phone: [phone] EGFR IF NonAfrican Venezuelan 3.0 mL/min >60 [facility] Work Phone: [phone] Comment on above: Source- MDRD equatio n with creatinine calibration to IDMS(NKDEP) eGFR not recommended for drug dose adjustment GFR/1.73 sq M.predicted among blacks MDRD (S/P/Bld) [Vol rate/Area] 3.6 mL/min/{1.73_m2} >60 [facility] Work Phone: [phone] Glucose [Mass/Vol] 93 mg/dL 70 - 100 mg/dL [facility] Work Phone: [phone] Interpretation and review of laboratory results Abnormal [facility] Work Phone: [phone] Potassium [Moles/Vol] 6.6 mmol/L Critically high 3.5 - 5.1 mmol/L [facility] Work Phone: [phone] Protein [Mass/Vol] 7.1 g/dL 6.3 - 8.2 g/dL [facility] Work Phone: [phone] Sodium [Moles/Vol] 136 mmol/L 135 - 145 mmol/L [facility] Work Phone: [phone] Urea nitrogen [Mass/Vol] 179 mg/dL High 7 - 20 mg/d L [facility] Work Phone: [phone] Test Performed by [facility], [address] [place] [id number] [place], [place] [address]A Work Phone: [phone] Albumin [Mass/Vol] 4.3 g/dL 3.5 - 5 g/dL [facility] Work Phone: [phone] [Catalytic activity/Vol] 68 U/L 38 - 126 U/L [facility] Work Phone: [phone] ALT [Catalytic activity/Vol] 31 U/L 13 - 69 U/L [facility] Work Phone: [phone] Anion gap [Moles/Vol] 22 mmol/L [facility] Work Phone: [phone] AST [Catalytic activity/Vol] 38 U/L 15 - 46 U/L [facility] Work Phone: [phone] Bilirubin [Mass/Vol] 0.3 mg/dL 0.2 - 1 .3 mg/dL [facility] Work Phone: [phone] Calcium [Mass/Vol] 8.1 mg/dL Low 8.4 - 10. 4 mg/dL [facility] Work Phone: [phone] Chloride [Moles/Vol] 104 mmol/L 98 - 10 7 mmol/L [facility] Work Phone: 1 CO2 [Moles/Vol] 10 mmol/L Low 22 - 30 mmol/L [facility] Work Phone: [phone] Creatinine [Mass/Vol] 17.95 mg/dL High 0.52 - 1.25 mg/dL [facility] Work Phone: [phone] IF NonAfrican Venezuelan 2.8 mL/min >60 [facility] Work Phone: [phone] Comment on above: Source- MDRD equatio n with creatinine calibration to IDMS(NKDEP) eGFR not recommended for drug dose adjustment GFR/1.73 sq M.predicted among blacks MDRD (S/P/Bld) [Vol rate/Area] 3.4 mL/min/{1.73_m2} >60 [facility] Work Phone: [phone] Glucose [Mass/Vol] 101 mg/dL High 70 - 100 mg/dL [facility] Work Phone: [phone] Interpretation and review of laboratory results Abnormal [facility] Work Phone: [phone] Potassium [Moles/Vol] 7.3 mmol/L Critically high 3.5 - 5.1 mmol/L [facility] Work Phone: [phone] Protein [Mass/Vol] 7.9 g/dL 6.3 - 8.2 g/dL [facility] Work Phone: [phone] Sodium [Moles/Vol] 136 mmol/L 135 - 145 mmol/L [facility] Work Phone: [phone] Urea nitrogen [Mass/Vol] 179 mg/dL High 7 - 20 mg/d L [facility] Work Phone: [phone] Test Performed by [facility], [address] [place] [id number] [place], [place] [address] Work Phone: [phone] EKG 12 Lead - Chest PainOrde red By: Callie Nieves on 10-19-2019 [facility] Test Date: 2019-10-19 Pat Name: Glenn Snyder Department: 2AED Room: 19 Gender: M 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 : 1965 Requested By: CALLIE NIEVES Order Number: [id number] Reading : Alessia Tapia Measurements Intervals [place] Rate: 97 P: 78 MS: 128 QRS: 49 QRSD: 106 T: 83 QT: 376 QTc: 478 Interpretive Statements SINUS RHYTHM LEFT ATRIAL ABNORMALITY INCOMPLETE RIGHT BUNDLE BRANCH BLOCK LEFT VENTRICULAR HYPERTROPHY BORDERLINE PROLONGED QT INTERVAL No previous ECG available for comparison Electronically Signed On 10-19-2019 8:49:06 EST by Alessia Tapia [facility] Work Phone: Mike, [facility] Incoming Cardiology Results From [facility] - 10/19/2019 8:50 AM EST [facility] Test Date: 2019-10-19 Pat Name: Glenn Snyder Department: [facility] Room: 19 Gender: M 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 : 1965 Requested By: CALLIE NIEVES Order Number: [id number] Reading MD: Alessia Tapia Measurements Intervals [place] Rate: 97 P: 78 MS: 128 QRS: 49 QRSD: 106 T: 83 QT: 376 QTc: 478 Interpretive Statements SINUS RHYTHM LEFT ATRIAL ABNORMALITY INCOMPLETE RIGHT BUNDLE BRANCH BLOCK LEFT VENTRICULAR HYPERTROPHY BORDERLINE PROLONGED QT INTERVAL No previous ECG available for comparison Electronically Signed On 10-19-2019 8:49:06 EST by Alessia Tapia [facility] Work Phone: HEPATITIS B SURFACE ANTIGENO rdered By: Jeana Pedraza on 10-19-2019 Hepatitis B Surface Ag Not detected Not-D etected [employer] Work Phone: [phone] HIV ScreenOrdered By: Adan Encarnacion on 10-19-2019 HIV 1+2 AB+[id number] AG, EIA Non-Reactive Nonreactive NA [employer] Work Phone: [phone] Comment on above: Results obtained usi mila the FDA cleared 4th generation HIV test. [...] # 0.1 10*3/uL 0 - 0.2 10*3/uL [facility] Work Phone: [phone] Absolute Neut # 11.3 10*3/uL High 1.8 - 7 10*3/uL [facility] Work Phone: [phone] Basophils/100 WBC (Bld) 0.6 % 0 - 2 % [facility] [employer] Work Phone: 22 Eosinophils (Bld) [#/Vol] 0.2 10*3/uL 0 - 0.5 10*3/uL [facility] Work Phone: [phone] Eosinophils/100 WBC (Bld) 1.2 % 1 - 6 % [facility] Work Phone: [phone] 22 Erythrocyte distribution width (RBC) [Ratio] 13.4 % 11.5 - 14.5 % [facility] Work Phone: 22 Granulocytes/100 WBC (Bld) 80.5 % High 40 - 80 % [facility] Work Phone: Hematocrit (Bld) [Volume fraction] 23.2 % Low 40 - 52 % [facility] Work Phone: 22 Hemoglobin (Bld) [Mass/Vol] 7.8 g/dL Low 13 - 18 g/dL [facility] Work Phone: [phone] Interpretation and review of laboratory results Abnormal [facility] Work Phone: Lymphocytes (Bld) [#/Vol] 1.4 10*3/uL 1 - 4.3 10*3/uL [facility] Work Phone: 22 Lymphocytes/100 WBC (Bld) 9.8 % Low 20 - 40 % [facility] Work Phone: MCH (RBC) [Entitic mass] 29.4 pg 26 - 34 pg [facility] Work Phone: 22 MCHC 33.6 % 32 - 36 % [facility] Work Phone: [phone] MCV (RBC) [Entitic vol] 87.4 fL 80 - 98 fL [facility] [employer] Work Phone: 22 Monocytes (Bld) [#/Vol] 1.1 10*3/uL High 0 - 0.8 10*3/uL [facility] Work Phone: Monocytes/100 WBC (Bld) 7.9 % 2 - 10 % [facility] Work Phone: Platelet mean volume (Bld) [Entitic vol] 7.6 fL 7.4 - 10.4 fL [facility] Work Phone: Platelets (Bld) [#/Vol] 293 10*3/uL 140 - 440 10*3/uL [facility] Work Phone: RBC (Bld) [#/Vol] 2.66 10*6/uL Low 4.4 - 5.9 10*6/uL [facility] Work Phone: WBC (Bld) [#/Vol] 14.1 10*3/uL High 3.6 - 10.7 10*3/uL [facility] Work Phone: Test Performed by [facility], [address] [place], [place] [address] [employer] Work Phone: Hepatitis C AntibodyOrdered By: Jeana Pedraza on 10-19-2019 Hepatitis C Ab Not detected Not-Detected NA [employer] Work Phone: Comment on above: Patients with DETECT ED Hepatitis C Ab results should have a new specimen submitted for supplemental testing with a Hepatitis C Quantitative RNA assay (viral load), if clinically indicated. MagnesiumOrdered By: Callie shaw on 10-19-2019 Magnesium [Mass/Vol] 2.1 mg/dL 1.6 - 2 .3 mg/dL [employer] Work Phone: Test Performed by [facility], [address] [place], [place] [address] [employer] Work Phone: No Panel InformationOrdered By: Brett Encarnacion on 10-19-2019 Test Performed by [facility], [address] [place] [address] [employer] Work Phone: No Panel InformationOrdered By: Jeana Pedraza on 10-19-2019 Test Performed by [facility], [address] [place] [address] [facility] Work Phone: 1 PROCALCITONINOrdered By: Eldon Encarnacion on 10-19-2019 Interpretation See Below [facility] Work Phone: Comment on above: PCT <0.50 = Low risk of severe sepsis and/or septic shock. PCT >2.00 = High risk of severe sepsis and/or septic shock. Interpretation and review of laboratory results Abnormal [facility] Work Phone: Procalcitonin 0.74 ng/mL Abnormal <0.10 [facility] Work Phone: 1 PhosphorusOrdered By: Callie Nieves on 10-19-2019 Interpretation and review of laboratory results Abnormal [facility] Work Phone: 1 Phosphate [Mass/Vol] 14.8 mg/dL High 2.5 - 4 .5 mg/dL [facility] Work Phone: 1 Test Performed by [facility] [employer], [address] [place] [address] [facility] Work Phone: TYPE AND SCREENOrdered By: Cecil Nieves on 10-19-2019 ABO Grouping O [facility] Work Phone: Rh Type Negative [facility] Work Phone: Comment on above: Test Performed by [facility], [address] [place] [address] Test Performed by [facility], [facility] [address] [place] [address] [facility] Work Phone: TroponinOrdered By: Callie garcia on 10-19-2019 Interpretation and review of laboratory results Abnormal [facility] Work Phone: 1 Troponin I.cardiac [Mass/Vol] 0.075 ng/mL High 0 - 0.034 ng/mL [facility] Work Phone: Comment on above: . [facility], [address] [place] [address] [facility] Work Phone: UrinalysisOrdered By: Callie Nieves on 10-19-2019 AMORPHOUS CRYSTAL Few Negative /[HPF] [facility] Work Phone: [phone] Appearance (U) Clear Clear NA [facility] Work Phone: [phone] Bacteria, UA Few Negative /[HPF] [facility] Work Phone: 1 Bilirubin Urine Negative Negative mg/dL [facility] Work Phone: [phone] Color (U) Colorless Lt. Yellow NA [facility] Work Phone: [phone] Glucose, Ur 200 mg/dL Normal (<70) [facility] Work Phone: 1 Ketones Ql (U) Negative Negative mg/dL [facility] Work Phone: [phone] LEUKOCYTES, UA Negative Negative Juliana/uL [facility] Work Phone: [phone] Mucous Threads Few Negative /[LPF] [facility] Work Phone: [phone] Nitrite, Urine Negative Negative NA [facility] Work Phone: [phone] Occult Blood,Urine 0.2 mg/dL Negative [facility] Work Phone: 1 pH (U) 6.0 [pH] [facility] Work Phone: 1 Protein (U) [Mass/Vol] 200 mg/dL Negative [facility] Work Phone: 1 RBC, UA 6-10 0 - 2 /[HPF] [facility] Work Phone: [phone] Specific [place], Urine 1.009 S [facility] Work Phone: [phone] Squam Epithel, UA 0-2 3 - 5 /[HPF] [facility] Work Phone: [phone] Urobilinogen, Urine Normal Normal ( 0-1) mg/dL [facility] Work Phone: 1 WBC, UA 6-10 0 - 5 /[HPF] [facility] Work Phone: [phone] Test Performed by [facility], [address] [place], [place] [address] [facility] Work Phone: [phone] XR CHEST PORTABLEOrdered By: Brett Encarnacion on 10-19-2019 Patient Name: GLENN SNYDER ---Diagnostic Radiology--- Exam Date/Time 10/19/2019 12:11:06 EST Exam CR Chest Portable Ordering Physician MD ENCARNACION MATTHEW Accession Number [id number] CPT4 Codes 63073 () Reason For Exam line placement/vascath Report [...] Time: 10/19/2019 12:56 [facility] Work Phone: Mike, [facility] Incoming Radiology Results From [facility] - 10/19/2019 12:57 PM EST Patient Name: GLENN SNYDER ---Diagnostic Radiology--- Exam Date/Time 10/19/2019 12:11:06 EST Exam CR Chest Portable Ordering Physician MD ENCARNACION MATTHEW Accession Number [id number] CPT4 Codes 64812 () Reason For Exam line placement/vascath Report [...] RISA Transcribed Date and Time: 10/19/2019 12:56 [facility] Work Phone: Vital Signs Date Time Vital Sign Value Performing Clinician Faci yariy 04-05-2025 20:00-0400 Diastolic blood pressure 89 mm[Hg] Stephan Villegas MD Work Phone: [facility] 04-05-2025 20:00-0400 Heart rate 91 /min Stephan Villegas MD Work Phone: [facility] 04-05-2025 20:00-0400 Respiratory rate 16 /min Stephan Villegas MD Work Phone: [facility] 04-05-2025 20:00-0400 SaO2% (BldA) [Mass fraction] 97 % Stephan Villegas MD Work Phone: [facility] 04-05-2025 20:00-0400 Systolic blood pressure 148 mm[Hg] Stephan Villegas MD Work Phone: [facility] 04-05-2025 17:15-0400 Body temperature 97.9 [degF] Stephan Villegas MD Work Phone: [facility] 04-05-2025 10:15-0400 Body height 177.8 cm Stephan Villegas MD Work Phone: [facility] 04-05-2025 10:15-0400 Body mass index (BMI) [Ratio] 21.09 kg/m2 Stephan Villegas MD Work Phone: [facility] 04-05-2025 10:15-0400 Body weight 66.68 kg Stephan Villegas MD Work Phone: [facility] 03-21-2025 16:02-0400 Body temperature 98.29 [degF] Keiry Solares MD Work Phone: [facility] 03-21-2025 16:02-0400 Diastolic blood pressure 85 mm[Hg] Keiry Solares MD Work Phone: [facility] 03-21-2025 16:02-0400 Heart rate 71 /min Keiry Solares MD Work Phone: [facility] 03-21-2025 16:02-0400 Respiratory rate 18 /min Keiry Solares MD Work Phone: [facility] 03-21-2025 16:02-0400 SaO2% (BldA) [Mass fraction] 94 % Keiry Solares MD Work Phone: [facility] 03-21-2025 16:02-0400 Systolic blood pressure 147 mm[Hg] Keiry Solares MD Work Phone: [facility] 03-21-2025 03:15-0400 Body mass index (BMI) [Ratio] 22.24 kg/m2 Keiry Solares MD Work Phone: [facility] 03-21-2025 03:15-0400 Body weight 70.31 kg Keiry Solares MD Work Phone: [facility] 03-14-2025 16:17-0400 Body height 177.8 cm Keiry Solares MD Work Phone: [facility] 03-05-2025 14:03-0400 Body temperature 97 [degF] Mejgon Cuca DO Work Phone: [facility] 03-05-2025 14:03-0400 Diastolic blood pressure 83 mm[Hg] Mejgon Cuca DO Work Phone: [facility] 03-05-2025 14:03-0400 Heart rate 78 /min Mejgon Cuca DO Work Phone: [facility] 03-05-2025 14:03-0400 Respiratory rate 16 /min Mejgon Cuca DO Work Phone: [facility] 03-05-2025 14:03-0400 SaO2% (BldA) [Mass fraction] 100 % Mejgon Cuca DO Work Phone: [facility] 03-05-2025 14:03-0400 Systolic blood pressure 137 mm[Hg] Mejgon Cuca DO Work Phone: [facility] 02-23-2025 14:13-0400 Body height 177.8 cm Mejgon Cuca DO Work Phone: [facility] 02-23-2025 14:13-0400 Body mass index (BMI) [Ratio] 19.23 kg/m2 Palak Thurman DO Work Phone: [facility] 02-23-2025 14:13-0400 Body weight 60.78 kg Palak Thurman DO Work Phone: [facility] 02-14-2025 10:30-0400 Body height 177.8 cm Mikala Day PA-C Work Phone: [facility] 02-14-2025 10:30-0400 Body mass index (BMI) [Ratio] 18.65 kg/m2 Mikala Day PA-C Work Phone: [facility] 02-14-2025 10:30-0400 Body temperature 96.8 [degF] Mikala Day PA-C Work Phone: [facility] 02-14-2025 10:30-0400 Body weight 58.97 kg Mikala Day PA-C Work Phone: [facility] 02-14-2025 10:30-0400 Diastolic blood pressure 72 mm[Hg] Mikala Day PA-C Work Phone: [facility] 02-14-2025 10:30-0400 Heart rate 89 /min Mikala Day PA-C Work Phone: [facility] 02-14-2025 10:30-0400 SaO2% (BldA) [Mass fraction] 98 % Mikala Day PA-C Work Phone: [facility] 02-14-2025 10:30-0400 Systolic blood pressure 138 mm[Hg] Mikala Day PA-C Work Phone: [facility] 02-01-2025 15:02-0400 Body temperature 96.69 [degF] Lazaro Rojo MD Work Phone: [facility] 02-01-2025 15:02-0400 Diastolic blood pressure 60 mm[Hg] Lazaro Rojo MD Work Phone: [facility] 02-01-2025 15:02-0400 Heart rate 81 /min Lazaro Rojo MD Work Phone: [facility] 02-01-2025 15:02-0400 Respiratory rate 16 /min Lazaro Rojo MD Work Phone: [facility] 02-01-2025 15:02-0400 SaO2% (BldA) [Mass fraction] 98 % Lazaro Rojo MD Work Phone: [facility] 02-01-2025 15:02-0400 Systolic blood pressure 118 mm[Hg] Lazaro Rojo MD Work Phone: [facility] 02-01-2025 05:36-0400 Body mass index (BMI) [Ratio] 14.58 kg/m2 Lazaro Rojo MD Work Phone: [facility] 02-01-2025 05:36-0400 Body weight 46.1 kg Lazaro Rojo MD Work Phone: [facility] 01-30-2025 10:02-0400 Body height 177.8 cm Lazaro Rojo MD Work Phone: [facility] 08-28-2024 15:33-0500 Body height 177.8 cm Jr Shah MD Work Phone: [facility] 08-28-2024 15:33-0500 Body mass index (BMI) [Ratio] 29.56 kg/m2 Jr Shah MD Work Phone: [facility] 08-28-2024 15:33-0500 Body weight 93.44 kg Jr Shah MD Work Phone: [facility] 08-28-2024 15:33-0500 Diastolic blood pressure 80 mm[Hg] Jr Shah MD Work Phone: [facility] 08-28-2024 15:33-0500 Heart rate 75 /min Jr Shah MD Work Phone: [facility] 08-28-2024 15:33-0500 Systolic blood pressure 130 mm[Hg] Jr Shah MD Work Phone: [facility] 11-12-2023 14:16-0500 Diastolic blood pressure 84 mm[Hg] Quiana Contreras [employer]ER - APPLICATION HELPER Work Phone: [facility] 11-12-2023 14:16-0500 Systolic blood pressure 138 mm[Hg] Quiana Contreras [employer]ER - APPLICATION HELPER Work Phone: [facility] 11-12-2023 13:41-0500 Body height 177.8 cm Quiana Contreras [employer] - APPLICATION HELPER Work Phone: [facility] 11-12-2023 13:41-0500 Body mass index (BMI) [Ratio] 29.84 kg/m2 Quiana Contreras [employer] - APPLICATION HELPER Work Phone: [facility] 11-12-2023 13:41-0500 Body weight 94.35 kg Quiana Contreras [employer] - APPLICATION HELPER Work Phone: [facility] 11-12-2023 13:41-0500 Heart rate 85 /min Quiana Contreras [employer]ER - APPLICATION HELPER Work Phone: [facility] 08-17-2023 13:12-0500 Diastolic blood pressure 67 mm[Hg] Dangelo Landworth DO Work Phone: [facility] 08-17-2023 13:12-0500 Heart rate 84 /min Gurinderlyn Ozzie DO Work Phone: [facility] 08-17-2023 13:12-0500 Respiratory rate 18 /min Gurinderlyn [place] DO Work Phone: [facility] 08-17-2023 13:12-0500 SaO2% (BldA) [Mass fraction] 98 % Gurinderlyn [place] DO Work Phone: [facility] 08-17-2023 13:12-0500 Systolic blood pressure 94 mm[Hg] Dionicion [place] DO Work Phone: [facility] 08-17-2023 09:13-0500 Body height 177.8 cm Dangelo Horne DO Work Phone: [facility] 08-17-2023 09:13-0500 Body mass index (BMI) [Ratio] 28.7 kg/m2 Dangelo Horne DO Work Phone: [facility] 08-17-2023 09:13-0500 Body weight 90.72 kg Dangelo Horne DO Work Phone: [facility] 08-17-2023 08:50-0500 Body temperature 99 [degF] Dangelo Horne DO Work Phone: [facility] 05-01-2023 20:36-0400 Diastolic blood pressure 85 mm[Hg] Jese Frank MD Work Phone: [facility] 05-01-2023 20:36-0400 Heart rate 74 /min Jese Frank MD Work Phone: [facility] 05-01-2023 20:36-0400 Respiratory rate 20 /min Jese Frank MD Work Phone: [facility] 05-01-2023 20:36-0400 SaO2% (BldA) [Mass fraction] 95 % Jese Frank MD Work Phone: [facility] 05-01-2023 20:36-0400 Systolic blood pressure 135 mm[Hg] Jese Frank MD Work Phone: [facility] 05-01-2023 20:08-0400 Body height 177.8 cm Jese Frank MD Work Phone: [facility] 05-01-2023 20:08-0400 Body mass index (BMI) [Ratio] 28.7 kg/m2 Jese Frank MD Work Phone: [facility] 05-01-2023 20:08-0400 Body temperature 98.2 [degF] Jese Frank MD Work Phone: [facility] 05-01-2023 20:08-0400 Body weight 90.72 kg Jese Frank MD Work Phone: [facility] 12-25-2021 15:50-0400 Body height 177.8 cm Rudy Painter MD Work Phone: [facility] 12-25-2021 15:50-0400 Body weight 99.79 kg Rudy Painter MD Work Phone: [facility] 12-25-2021 15:50-0400 Diastolic blood pressure 72 mm[Hg] Rudy Painter MD Work Phone: [facility] 12-25-2021 15:50-0400 Heart rate 70 /min Rudy Painter MD Work Phone: [facility] 12-25-2021 15:50-0400 Systolic blood pressure 130 mm[Hg] Rudy Painter MD Work Phone: [facility] 09-15-2021 11:20-0500 Body temperature 97.59 [degF] Cindy Patel MD Work Phone: [facility] 09-15-2021 11:20-0500 Diastolic blood pressure 83 mm[Hg] Cindy Patel MD Work Phone: [facility] 09-15-2021 11:20-0500 Heart rate 85 /min Cindy Patel MD Work Phone: [facility] 09-15-2021 11:20-0500 Respiratory rate 20 /min Cindy Patel MD Work Phone: [facility] 09-15-2021 11:20-0500 SaO2% (BldA) [Mass fraction] 98 % Cindy Patel MD Work Phone: [facility] 09-15-2021 11:20-0500 Systolic blood pressure 144 mm[Hg] Cindy Patel MD Work Phone: [facility] 09-15-2021 09:19-0500 Body height 177.8 cm Cindy Patel MD Work Phone: [facility] 09-15-2021 09:19-0500 Body mass index (BMI) [Ratio] 30.05 kg/m2 Cindy aPtel MD Work Phone: [facility] 09-15-2021 09:19-0500 Body weight 94.98 kg Cindy Patel MD Work Phone: [facility] 10-27-2019 20:02-0500 Body temperature 97.2 [degF] Razer DO Work Phone: [facility] Work Phone: 10-27-2019 20:02-0500 Diastolic blood pressure 77 mm[Hg] Callie Damir DO Work Phone: [facility] Work Phone: 10-27-2019 20:02-0500 Heart rate 107 /min Callie [employer] DO Work Phone: [facility] Work Phone: 10-27-2019 20:02-0500 Respiratory rate 16 /min Razer DO Work Phone: [facility] Work Phone: 10-27-2019 20:02-0500 SaO2% (BldA) [Mass fraction] 96 % Razer DO Work Phone: [facility] Work Phone: 10-27-2019 20:02-0500 Systolic blood pressure 112 mm[Hg] Callie Damir DO Work Phone: [facility] Work Phone: 10-27-2019 14:10-0500 Body mass index (BMI) [Ratio] 27.08 kg/m2 Callie Damir DO Work Phone: [facility] Work Phone: 10-27-2019 14:10-0500 Body weight 85.6 kg Callie Damir DO Work Phone: [facility] Work Phone: 10-19-2019 12:45-0500 Body height 177.8 cm Callie [employer] DO Work Phone: [facility] Work Phone: Encounters Encounter Date Encounter Type Care Provider Facility Start: 04-05-2025 End: 04-05-2025 Telephone encounter Sophia Forrester CNP Work Phone: [facility] Comment on above: Cancelled Appointmen t Start: 04-05-2025 End: 04-05-2025 Emergency department patient visit Stephan Villegas MD Work Phone: [facility] Comment on above: Tachycardia (Primary Dx); Dialysis patient (HCC) Start: 04-05-2025 ambulatory [facility] O[facility] Facility:[facility] Start: 04-02-2025 ambulatory [facility] Facility:[facility] Start: 03-29-2025 ambulatory [facility] O[facility] Facility:[facility] Start: 03-26-2025 End: 03-28-2025 Telephone encounter Sophia Forrester CNP Work Phone: [facility] Comment on above: Appointment Start: 03-26-2025 ambulatory Jayesh ALBA Faci lity:[facility] Start: 03-22-2025 ambulatory [facility] O[facility] Facility:[facility] Start: 03-22-2025 Registered Referred Kayley ortiz MD -[employer] Start: 03-13-2025 End: 03-21-2025 Evaluation and management of inpatient Keiry Solares MD Work Phone: [facility] Cardiac Progressive Care Unit PCU 5W Comment on above: SOB (shortness of br eath) (Primary Dx); 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, 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) Start: 03-12-2025 ambulatory Jayesh ALBA Faci lity:[facility] Start: 03-12-2025 Registered Referred Jayesh Stubbs 2C2P Start: 03-09-2025 ambulatory Jayesh ALBA Faci lity:[facility] Start: 03-09-2025 Registered Referred Jayesh Stubbs 2C2P Start: 03-08-2025 End: 03-08-2025 Orders Only Christelle Eckert RN [facility] [place] Comment on above: Tracheostomy depende nce (HCC) (Primary Dx); Tracheostomy complication, unspecified complication type (HCC); Acute respiratory failure with hypoxia (HCC) [J96.01] Start: 03-08-2025 Registered Referred Kayley ortiz MD -[employer] Start: 02-23-2025 End: 02-23-2025 Telephone encounter Elly Jett MD Work Phone: [facility] Comment on above: Appointment Start: 02-21-2025 End: 02-25-2025 Telephone encounter Hussain Quintana MD Work Phone: [facility] [place] Comment on above: Other Start: 02-20-2025 End: 03-05-2025 Evaluation and management of inpatient Palak Alya DO Work Phone: [facility] Neuro Progressive [facility] Unit PCU 3W Start: 02-20-2025 End: 02-20-2025 ambulatory Kayley Melendrez MD [facility] Work Phone: Start: 02-20-2025 End: 02-20-2025 Departed Referred Kayley Melendrez MD -[employer] Start: 02-20-2025 Registered Referred [facility] Start: 02-20-2025 End: 02-20-2025 ambulatory Kayley ALBA Facility:[facility] Start: 02-15-2025 End: 02-15-2025 ambulatory Kayley Melendrez MD [facility] Work Phone: Start: 02-15-2025 End: 02-15-2025 Departed Referred [facility] Start: 02-15-2025 Registered Referred [facility] Start: 02-14-2025 End: 02-14-2025 Office outpatient visit 25 minutes Mikala Day PA-C Work Phone: [facility] [place] Comment on above: Sacral osteomyelitis (CMS/HCC) (HCC) (Primary Dx); ESRD on hemodialysis (CMS/HCC) (HCC); 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, 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); Decubitus ulcer of sacral region, unstageable (HCC); 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 Start: 02-14-2025 End: 02-15-2025 ambulatory [facility] Start: 02-13-2025 ambulatory Kayley ALBA Facility:[facility] Start: 02-13-2025 Registered Referred Kayley [employer] Start: 02-12-2025 End: 02-12-2025 ambulatory [facility]ley [facility] [employer] Start: 02-12-2025 End: 02-12-2025 Departed Referred Kayley [facility] [employer] Start: 02-12-2025 Registered Referred Kalyey [facility] [employer] Start: 02-12-2025 End: 02-12-2025 ambulatory Kayley ALBA Facility:[facility] Start: 02-08-2025 End: 02-08-2025 ambulatory Kayley [facility] [employer] Start: 02-08-2025 End: 02-08-2025 Departed Referred Kayley [facility] [employer] Start: 02-08-2025 Registered Referred Kayley [facility] [employer] Start: 02-07-2025 End: 02-08-2025 ambulatory Kayley ALBA [facility] Work Phone: Start: 02-07-2025 End: 02-07-2025 Departed Referred Jayesh Shen [employer] Start: 02-07-2025 Registered Referred Jayesh Milner [employer] Start: 02-07-2025 End: 02-07-2025 ambulatory Jayesh Clarahoward ALBA Facility:[facility] Start: 02-05-2025 End: 02-05-2025 ambulatory Kayley Melendrez MD [facility] Work Phone: Start: 02-05-2025 End: 02-05-2025 Departed Referred Kayley Melendrez MD [facility] Start: 02-05-2025 End: 02-05-2025 ambulatory Kayley ALBA Facility:[facility] Start: 02-02-2025 End: 02-02-2025 Anticoagulant drug monitoring Adalberto SanchezD [facility] Comment on above: S/P AVR (Primary Dx) Start: 01-29-2025 End: 02-05-2025 Telephone encounter Adina Montenegro MA [facility] Anticoagulatio n Management Service Comment on above: Anticoagulation Start: 01-19-2025 End: 02-01-2025 Evaluation and management of inpatient Lazaro Rojo MD Work Phone: [facility] Cardiac Vascular Progressive Care Unit PCC 1C Start: 01-18-2025 End: 01-18-2025 ambulatory Jefferson Nathan MD Work Phone: [facility] Comment on above: Acute respiratory fa ilure with hypoxia (HCC) [J96.01] (Primary Dx); RSV (acute bronchiolitis due to respiratory syncytial virus); Tracheostomy dependence (HCC); Leg DVT (deep venous thromboembolism), acute, left (HCC); Pulmonary embolism, unspecified chronicity, unspecified pulmonary embolism type, unspecified whether acute cor pulmonale present (HCC); S/P AVR Start: 01-17-2025 End: 01-17-2025 ambulatory Jefferson Nathan MD Work Phone: [facility] Comment on above: RSV (acute [...] (Primary Dx); ESRD on hemodialysis (CMS/HCC) (HCC); nursing home (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; Decubitus ulcer of sacral region, unstageable (HCC); Sacral osteomyelitis (CMS/HCC) (HCC) Start: 01-16-2025 End: 01-16-2025 ambulatory Jefferson Nathan MD Work Phone: [facility] Comment on above: RSV (acute bronchiol [...] 01-15-2025 ambulatory Jefferson Nathan MD Work Phone: [facility] Comment on above: RSV (acute bronchiol itis due to respiratory syncytial virus) (Primary Dx); Tracheostomy dependence (HCC); Acute respiratory failure with hypoxia (HCC) [J96.01]; Leg DVT (deep venous thromboembolism), acute, left (HCC); Pulmonary embolism, unspecified chronicity, unspecified pulmonary embolism type, unspecified whether acute cor pulmonale present (HCC); S/P AVR Tracheostomy depende nce ([facility]) (Primary Dx); ESRD on hemodialysis (CMS/HCC) (HCC); 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, 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); Sacral osteomyelitis (CMS/HCC) ([facility]); Leukocytosis, unspecified type Start: 01-14-2025 End: 01-14-2025 ambulatory Hany Berrios MD Work Phone: [facility] Pulmonary [facility] Sleep Medicine [facility] Comment on above: Acute respiratory fa ilure with hypoxia (HCC) [J96.01] (Primary Dx); 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]; Pulmonary embolism, other, unspecified chronicity, unspecified whether acute cor pulmonale present (HCC) Start: 01-12-2025 End: 01-12-2025 ambulatory Mikala Day PA-C Work Phone: [facility] Infectious Dis Comment on above: Tracheostomy depende nce (HCC) (Primary Dx); Sacral osteomyelitis (CMS/HCC) (HCC); Leukocytosis, unspecified type; Decubitus ulcer of sacral region, unstageable (HCC); nursing home (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 Acute respiratory fa ilure with hypoxia (HCC) [J96.01] (Primary Dx); 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]; Pulmonary embolism, other, unspecified chronicity, unspecified whether acute cor pulmonale present (HCC) Start: 01-11-2025 End: 01-11-2025 ambulatory Mikala Day PA-C Work Phone: [facility] Infectious Dis Comment on above: [...] 01-10-2025 ambulatory Hany Berrios MD Work Phone: [facility] Comment on above: Acute respiratory fa ilure with hypoxia (HCC) [J96.01] (Primary Dx); 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]; Pulmonary embolism, other, unspecified chronicity, unspecified whether acute cor pulmonale present (HCC) Start: 01-09-2025 End: 01-09-2025 ambulatory Mikala Day PA-C Work Phone: [facility] Infectious Dis Comment on above: [...] 01-08-2025 ambulatory Mikala Day PA-C Work Phone: [facility] Dis Comment on above: [...] End: 01-05-2025 ambulatory Sydni Husain APRN - APPLICATION HELPER Work Phone: [facility] [place] Comment on above: Pneumonia of both marleny ngs due to methicillin susceptible Staphylococcus aureus (MSSA), unspecified part of lung (HCC) (Primary Dx); Acute hypoxic respiratory failure (HCC); Tracheostomy dependence (HCC); ESRD on hemodialysis (CMS/HCC) (HCC); Sacral osteomyelitis (CMS/HCC) (HCC); Decubitus ulcer of sacral region, unstageable (HCC) Start: 01-05-2025 End: 01-05-2025 Patient encounter procedure Chandrika Allen APRN - APPLICATION HELPER Work Phone: [facility] [place] Comment on above: Acute respiratory fa ilure with hypoxia (HCC) [J96.01] (Primary Dx); 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]; LRTI (lower respiratory tract infection) [J22] Start: 01-04-2025 End: 01-04-2025 Admission to same day surgery center Sydni Husain APRN - APPLICATION HELPER Work Phone: [facility] [place] Comment on above: Tracheostomy depende nce (HCC) (Primary Dx); Pneumonia of both lungs due to methicillin susceptible Staphylococcus aureus (MSSA), unspecified part of lung (HCC); Acute hypoxic respiratory failure (HCC); Peritonitis due to fungus (HCC); ESRD on hemodialysis (CMS/HCC) (HCC); Sacral osteomyelitis (CMS/HCC) (HCC); Leukocytosis, unspecified type; History of abdominal surgery Start: 01-04-2025 End: 01-04-2025 ambulatory Sydni Husain APRN [employer] Work Phone: [facility] [place] Start: 01-04-2025 End: 01-04-2025 [facility] hospital care/day 25 minutes ArchyJohann DO Work Phone: [facility] Comment on above: 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] (Primary Dx); Acute respiratory failure with hypoxia (HCC) [J96.01] Start: 01-03-2025 End: 01-03-2025 ambulatory Josephine Rodas Shreya LOZA [employer] Work Phone: [facility] [place] Comment on above: Sacral osteomyelitis (CMS/HCC) (HCC) (Primary Dx); Decubitus ulcer of sacral region, unstageable (HCC); Pneumonia of both lungs due to methicillin susceptible Staphylococcus aureus (MSSA), unspecified part of lung (HCC); Leukocytosis, unspecified type; ESRD on hemodialysis (CMS/HCC) (HCC); S/P AVR Start: 01-03-2025 End: 01-03-2025 [facility] hospital care/day 25 minutes ArchyJohann DO Work Phone: [facility] Comment on above: 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] (Primary Dx); Acute respiratory failure with hypoxia (HCC) [J96.01] Start: 01-02-2025 End: 01-02-2025 ambulatory Josephine Cash [employer]AD[employer] - APPLICATION HELPER Work Phone: [facility] [place] Comment on above: Leukocytosis, unspec ified type (Primary Dx); Pneumonia of both lungs due to methicillin susceptible Staphylococcus aureus (MSSA), unspecified part of lung (HCC); Acute hypoxic respiratory failure (HCC); Decubitus ulcer of sacral region, unstageable (HCC); ESRD on hemodialysis (CMS/HCC) (HCC); S/P AVR Start: 01-02-2025 End: 01-02-2025 [facility] hospital care/day 25 minutes Angeles Blackburn DO Work Phone: [facility] [place] Comment on above: 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] (Primary Dx); Acute respiratory failure with hypoxia (HCC) [J96.01] Start: 01-01-2025 End: 01-01-2025 ambulatory Ochoa Guido MD Work Phone: [facility] Comment on above: Persistent atrial fi brillation (HCC) (Primary Dx) Leukocytosis, unspec ified type (Primary Dx); Pneumonia of both lungs due to methicillin susceptible Staphylococcus aureus (MSSA), unspecified part of lung (HCC); Acute hypoxic respiratory failure (HCC); Tracheostomy dependence (HCC); Decubitus ulcer of sacral region, unstageable (HCC); ESRD on hemodialysis ([facility]) (HCC); S/P AVR Start: 01-01-2025 End: 01-01-2025 [facility] hospital care/day 25 minutes Angeles Blackburn DO Work Phone: [facility] [place] Comment on above: 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] (Primary Dx); Acute respiratory failure with hypoxia (HCC) [J96.01] Start: 12-30-2024 End: 12-30-2024 ambulatory Josephine Cash RIPSAW GRADER - APPLICATION HELPER Work Phone: [facility] Infect[facility] Dis Comment on above: Leukocytosis, unspec ified type (Primary Dx); Acute hypoxic respiratory failure (HCC); Tracheostomy dependence (HCC); S/P AVR; ESRD on hemodialysis (CMS/HCC) (HCC); Decubitus ulcer of sacral region, unstageable (HCC) Start: 12-28-2024 End: 12-28-2024 ambulatory Mercedes Hinton RIPSAW GRADER - APPLICATION HELPER Work Phone: [facility] [place] Start: 12-28-2024 End: 12-28-2024 Patient encounter procedure Mercedes Hinton RIPSAW GRADER - APPLICATION HELPER Work Phone: [facility] [place] Comment on above: Acute respiratory fa ilure with hypoxia (HCC) [J96.01] (Primary Dx); 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]; Tracheostomy care (HCC) [Z43.0]; History of pulmonary embolus (PE) [Z86.711] Start: 12-27-2024 End: 12-27-2024 ambulatory Mercedes Hinton RIPSAW GRADER - APPLICATION HELPER Work Phone: [facility] [place] Start: 12-27-2024 End: 12-27-2024 Patient encounter procedure Mercedes Hinton RIPSAW GRADER - APPLICATION HELPER Work Phone: [facility] Comment on above: Acute respiratory fa ilure with hypoxia (HCC) [J96.01] (Primary Dx); 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]; Tracheostomy care (HCC) [Z43.0]; History of pulmonary embolus (PE) [Z86.711] Start: 12-26-2024 End: 12-26-2024 ambulatory Mercedes Hinton RIPSAW GRADER - APPLICATION HELPER Work Phone: [facility] [place] Start: 12-26-2024 End: 12-26-2024 Patient encounter procedure Mercedes Hinton RIPSAW GRADER - APPLICATION HELPER Work Phone: [facility] Comment on above: Acute respiratory fa ilure with hypoxia (HCC) [J96.01] (Primary Dx); 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]; Tracheostomy care (HCC) [Z43.0]; History of pulmonary embolus (PE) [Z86.711] Start: 12-22-2024 End: 12-22-2024 ambulatory Chandrika Allen APRN - APPLICATION HELPER Work Phone: [facility] Start: 12-22-2024 End: 12-22-2024 Patient encounter procedure Chandrika Allen APRN - APPLICATION HELPER Work Phone: [facility] Comment on above: 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] (Primary Dx); Acute respiratory failure with hypoxia (HCC) [J96.01]; LRTI (lower respiratory tract infection) [J22] Start: 12-21-2024 End: 12-21-2024 ambulatory Chandrika Castillo Alejandro RIPSAW GRADER [employer] Work Phone: [facility] Start: 12-21-2024 End: 12-21-2024 Patient encounter procedure Chandrika Allen APRN - APPLICATION HELPER Work Phone: [facility] Comment on above: 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] (Primary Dx); Acute respiratory failure with hypoxia (HCC) [J96.01]; LRTI (lower respiratory tract infection) [J22] Start: 12-20-2024 End: 12-20-2024 ambulatory Chandrika Medranowsviola ORRN - APPLICATION HELPER [facility] Start: 12-20-2024 End: 12-20-2024 Patient encounter procedure Chandrika Allen APRN - APPLICATION HELPER Work Phone: [facility] Comment on above: 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] (Primary Dx); Acute respiratory failure with hypoxia (HCC) [J96.01]; LRTI (lower respiratory tract infection) [J22] Start: 12-19-2024 End: 12-19-2024 ambulatory Chandrika Cummingsoblewski RIPSAW GRADER - APPLICATION HELPER Work Phone: [facility] Start: 12-19-2024 End: 12-19-2024 Patient encounter procedure Chandrika Cummingsoblewski RIPSAW GRADER - APPLICATION HELPER Work Phone: [facility] Comment on above: 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] (Primary Dx); Acute respiratory failure with hypoxia (HCC) [J96.01]; LRTI (lower respiratory tract infection) [J22] Start: 12-18-2024 End: 12-18-2024 Patient encounter procedure Chandrika Cummingsoblewski RIPSAW GRADER - APPLICATION HELPER Work Phone: [facility] Comment on above: Acute respiratory fa ilure with hypoxia (HCC) [J96.01] (Primary Dx); 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]; LRTI (lower respiratory tract infection) [J22] Start: 12-18-2024 End: 12-18-2024 ambulatory Chandrika BorjaRomulo Allen RIPSAW GRADER - APPLICATION HELPER Work Phone: [facility] Start: 12-15-2024 End: 12-15-2024 ambulatory Jefferson Nathan MD Work Phone: [facility] Start: 12-15-2024 End: 12-15-2024 Patient encounter procedure Jefferson Nathan MD Work Phone: [facility] Comment on above: Acute respiratory fa ilure with hypoxia (HCC) (Primary Dx); Tracheostomy dependence (HCC); RSV (acute bronchiolitis due to respiratory syncytial virus); Leg DVT (deep venous thromboembolism), acute, left (HCC); Nonrheumatic aortic valve stenosis Start: 12-14-2024 End: 12-14-2024 ambulatory Jefferson Nathan MD Work Phone: [facility] Comment on above: Acute respiratory fa ilure with hypoxia (HCC) (Primary Dx); Tracheostomy dependence (HCC); RSV (acute bronchiolitis due to respiratory syncytial virus); ESRD on hemodialysis (CMS/HCC) (HCC); Pulmonary embolism, other, unspecified chronicity, unspecified whether acute cor pulmonale present (HCC); Nonrheumatic aortic valve stenosis Start: 12-13-2024 End: 12-13-2024 ambulatory Jefferson Nathan MD Work Phone: [facility] Comment on above: Acute respiratory fa ilure with hypoxia (HCC) (Primary Dx); Tracheostomy dependence (HCC); RSV (acute bronchiolitis due to respiratory syncytial virus); Paroxysmal A-fib (CMS/HCC) (HCC); Nonrheumatic aortic valve stenosis Start: 12-12-2024 End: 12-12-2024 ambulatory Jefferson Nathan MD Work Phone: [facility] Comment on above: RSV (acute bronchiol itis due to respiratory syncytial virus) (Primary Dx); Tracheostomy dependence (HCC); Acute respiratory failure with hypoxia (HCC); Paroxysmal A-fib (CMS/HCC) (HCC); Peritonitis due to fungus (HCC) Start: 12-11-2024 End: 12-11-2024 ambulatory Jefferson Nathan MD Work Phone: [facility] Comment on above: RSV (acute bronchiol [...] surgery center Sydni Forrester CNP Work Phone: [facility] [place] Comment on above: Acute respiratory fa ilure with hypoxia (HCC) (Primary Dx); Tracheostomy dependence (HCC); S/P AVR; Peritonitis due to fungus (HCC); ESRD on hemodialysis (CMS/HCC) (HCC); 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, 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); Anemia, unspecified type; History of abdominal surgery Start: 12-07-2024 End: 12-07-2024 ambulatory Sydni Husain APRN - APPLICATION HELPER Work Phone: [facility] [place] Start: 12-07-2024 End: 03-23-2025 [facility] hospital care/day 25 minutes Vincent Meek MD Work Phone: [facility] [employer] Comment on above: Acute respiratory fa ilure with hypoxia (HCC) (Primary Dx); Ventilator dependent (HCC); Tracheostomy dependence (HCC); Pulmonary embolism, other, unspecified chronicity, unspecified whether acute cor pulmonale present (HCC); S/P AVR; ESRD on hemodialysis (CMS/HCC) (HCC) Start: 12-06-2024 End: 12-06-2024 Admission to same day surgery center Sydni Husain APRN - APPLICATION HELPER Work Phone: [facility] [place] Comment on above: Acute respiratory fa ilure with hypoxia (HCC) (Primary Dx); Tracheostomy dependence (HCC); S/P AVR; Peritonitis due to fungus (HCC); ESRD on hemodialysis (CMS/HCC) (HCC); 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, 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); History of abdominal surgery Start: 12-06-2024 End: 12-06-2024 ambulatory Sydni Husain APRN [employer] Work Phone: [facility] [place] Start: 12-06-2024 End: 03-23-2025 [facility] hospital care/day 25 minutes Vincent Meek MD Work Phone: [facility] [employer] Comment on above: Acute respiratory fa ilure with hypoxia (HCC) (Primary Dx); Ventilator dependent (HCC); Tracheostomy dependence (HCC); Pulmonary embolism, other, unspecified chronicity, unspecified whether acute cor pulmonale present (HCC); S/P AVR; ESRD on hemodialysis (CMS/HCC) (HCC) Start: 12-05-2024 End: 03-23-2025 [facility] hospital care/day 35 minutes Vincent Meek MD Work Phone: [facility] [place] Comment on above: Acute respiratory fa ilure with hypoxia (HCC) (Primary Dx); Tracheostomy dependence (HCC); Ventilator dependent (HCC); Pulmonary embolism, other, unspecified chronicity, unspecified whether acute cor pulmonale present (HCC); S/P AVR; ESRD on hemodialysis (CMS/HCC) (HCC) Start: 12-04-2024 End: 12-04-2024 Admission to same day surgery center Sydni Husain RIPSAW GRADER - APPLICATION HELPER Work Phone: [facility] [place] Comment on above: Acute respiratory fa ilure with hypoxia (HCC) (Primary Dx); Tracheostomy dependence (HCC); S/P AVR; Peritonitis due to fungus (HCC); ESRD on hemodialysis (CMS/HCC) (HCC); 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, 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); History of abdominal surgery Start: 12-04-2024 End: 12-04-2024 ambulatory Sydni Husain RIPSAW GRADER - APPLICATION HELPER Work Phone: [facility] [place] Comment on above: Atypical atrial flut ter (HCC) (Primary Dx) Start: 12-01-2024 End: 12-01-2024 Admission to same day surgery center Sydni Husain RIPSAW GRADER - APPLICATION HELPER Work Phone: [facility] [place] Comment on above: Acute respiratory fa ilure with hypoxia (HCC) (Primary Dx); Tracheostomy dependence (HCC); S/P AVR; Peritonitis due to fungus (HCC); ESRD on hemodialysis (CMS/HCC) (HCC); 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, 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); Leg DVT (deep venous thromboembolism), acute, left (HCC); History of abdominal surgery Start: 12-01-2024 End: 12-01-2024 ambulatory Jefferson Nathan MD Work Phone: [facility] Comment on above: Atypical atrial flut ter (HCC) (Primary Dx) Start: 12-01-2024 End: 12-01-2024 Patient encounter procedure Jefferson Nathan MD Work Phone: [facility] Comment on above: Acute respiratory fa ilure with hypoxia (HCC) (Primary Dx); Tracheostomy dependence (HCC); Ventilator dependent (HCC); Pulmonary embolism, other, unspecified chronicity, unspecified whether acute cor pulmonale present (HCC); S/P AVR Start: 11-30-2024 End: 11-30-2024 Admission to same day surgery center Sydni Husain RIPSAW GRADER [employer] Work Phone: [facility] [place] Comment on above: Acute respiratory fa ilure with hypoxia (HCC) (Primary Dx); Tracheostomy dependence (HCC); S/P AVR; Peritonitis due to fungus (HCC); ESRD on hemodialysis (CMS/HCC) (HCC); 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, 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); Leg DVT (deep venous thromboembolism), acute, left (HCC); History of abdominal surgery Start: 11-30-2024 End: 11-30-2024 ambulatory Sydni Husain APRN - APPLICATION HELPER Work Phone: [facility] [place] Comment on above: Acute respiratory fa ilure with hypoxia (HCC) (Primary Dx); Tracheostomy dependence (HCC); Ventilator dependent (HCC); Pulmonary embolism, other, unspecified chronicity, unspecified whether acute cor pulmonale present (HCC); S/P AVR; Tracheostomy dependent (HCC); Chronic bronchitis, unspecified chronic bronchitis type (HCC); ESRD on hemodialysis (CMS/HCC) (HCC) Start: 11-29-2024 End: 11-30-2024 Admission to same day surgery center Sydni Husain RIPSAW GRADER [employer] Work Phone: [facility] [place] Comment on above: Peritonitis due to f ungus (HCC) (Primary Dx); History of abdominal surgery; S/P AVR; 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, 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); Leg DVT (deep venous thromboembolism), acute, left (HCC); Anemia, unspecified type Start: 11-29-2024 End: 11-30-2024 ambulatory Jefferson Nathan MD Work Phone: [facility] [place] [...] Telephone encounter Jefferson Nathan MD Work Phone: [facility] Comment on above: Advice Only Start: 10-22-2024 End: 10-22-2024 ambulatory LUCIANO [facility] Start: 10-21-2024 End: 10-25-2024 ambulatory [facility] Start: 10-16-2024 End: 10-16-2024 Telephone encounter Shira Forrester CNP Work Phone: [facility] Comment on above: Care Coordination Start: 10-13-2024 End: 10-13-2024 Telephone encounter Lan Carpenter PA-C Work Phone: [facility] Start: 10-12-2024 End: 10-12-2024 Evaluation and management of inpatient Vincent Wilson MD Work Phone: [facility] Start: 10-03-2024 End: 10-03-2024 Emergency department patient visit [facility] Start: 10-03-2024 End: 10-03-2024 Subsequent hospital visit by physician [facility] Exam Room [address] [facility] [address] Comment on above: Arrived Start: 10-03-2024 End: 11-28-2024 Evaluation and management of inpatient LUCIANO MONTEMAYOR [facility] Start: 08-28-2024 End: 08-28-2024 ambulatory JR SHAH [facility] Start: 08-28-2024 End: 08-28-2024 Office outpatient visit 25 minutes Jr Shah MD Work Phone: [facility] [place] Comment on above: Paroxysmal A-fib (CM S/HCC) (HCC) (Primary Dx); Nonrheumatic aortic valve stenosis; Tobacco abuse; Alcohol use disorder in remission Start: 05-10-2024 Chart abstracting Alan Barroso RN [facility] Comment on above: Dialysis status upda te Start: 04-12-2024 Telephone encounter Kidney Txp Coordinators Work Phone: Transplant Center Start: 02-12-2024 Telephone encounter Jr Shah MD Work Phone: [facility] Central Scheduling Comment on above: unable to contact pa jadon unable to contact greg diop to schedule Start: 11-12-2023 End: 11-12-2023 Office outpatient visit 25 minutes Quiana Contreras RIPSAW GRADER - APPLICATION HELPER Work Phone: [facility] Comment on above: Nonrheumatic aortic valve stenosis (Primary Dx); Paroxysmal A-fib (CMS/HCC) (HCC); Primary hypertension; Calcification of abdominal aorta (HCC); Tobacco abuse; ESRD on hemodialysis (CMS/HCC) (HCC) Start: 10-14-2023 Telephone encounter Sasha weeks RIPSAW GRADER - APPLICATION HELPER Work Phone: [facility] Comment on above: Cancelled Appointmen t Start: 09-07-2023 Transcribe Orders Fransisco toro RIPSAW GRADER Work Phone: [facility] Central Scheduling Comment on above: Personal history of nicotine dependence (Primary Dx); Nicotine dependence, cigarettes, uncomplicated Start: 08-18-2023 Telephone encounter Quiana forman RIPSAW GRADER - APPLICATION HELPER Work Phone: [facility] Start: 08-16-2023 End: 08-17-2023 Evaluation and management of inpatient Dangelo Horne DO Work Phone: [facility] Comment on above: New onset a-fib (CMS /HCC) (HCC) (Primary Dx); Atrial fibrillation, persistent (HCC) Start: 05-01-2023 End: 05-01-2023 Emergency department patient visit Jese Frank MD Work Phone: [facility] Comment on above: Skin sore (Primary D x); ESRD (end stage renal disease) on dialysis (HCC) Start: 12-30-2021 Telephone encounter [facility]ovani [facility]ckee MD [facility] Comment on above: Procedure please advise Start: 12-29-2021 ambulatory Rudy Painter MD Work Phone: Ambulatory Surgery Start: 12-29-2021 Telephone encounter Cecilia galo PA-C [facility] Comment on above: cecilia carlson Start: 12-25-2021 End: 12-25-2021 Patient encounter procedure Rudy Painter MD [facility] Comment on above: Acute blood loss ane ruth (Primary Dx); Rectal bleeding Start: 09-15-2021 End: 09-15-2021 Subsequent hospital visit by physician Cindy Patel MD Work Phone: [facility] Cath & IR Lab Start: 10-17-2020 End: 10-17-2020 Subsequent hospital visit by physician Cindy Patel Work Phone: [facility] Cindy Dept Start: 03-13-2020 End: 03-13-2020 Subsequent hospital visit by physician [facility] [place] [facility] E[facility] Comment on above: Preoperative testing [Z01.818] Start: 10-19-2019 End: 10-27-2019 Evaluation and management of inpatient Callie Nieves Work Phone: [facility] Comment on above: Acute kidney injury (HCC) (Primary Dx); Uncontrolled hypertension; Normocytic anemia; Angioedema, initial encounter; Hyperkalemia; Metabolic acidosis; Rectal bleeding Procedures Date Procedure Procedure Detail Performing Clinician Start: 04-05-2025 Assay of troponin quantitative Barbara Bocanegraono PA-C Work Phone: Start: 04-05-2025 Radiologic exam ches t 2 views Barbara Centeno Levy PA-C Work Phone: Start: 04-05-2025 Basic metabolic pane l calcium total Barbara J Levy PA-C Work Phone: Start: 04-05-2025 Ecg routine ecg w/le ast 12 lds trcg only w/o i&r Stephan Villegas MD Work Phone: Start: 03-21-2025 Glucose quantitative blood xcpt reagent [...] 02-26-2025 Assay of troponin quantitative Rudolph Centeno Moei DO Work Phone: Start: 02-25-2025 Prothrombin [...] MD Work Phone: Start: 02-21-2025 Antibody screen RUBI SANDY Comment on above: Performed By: #### L [id number] ####Circuit Court Magistrate: DOMENICA JARA ([id number])[facility] ([facility])[address] [place] [address] Start: 02-21-2025 C-reactive protein Karena Jett MD Work Phone: Start: 02-21-2025 Comprehensive metabo lic panel Bettye Pierre MD Work Phone: Start: 02-20-2025 Ct angiography chest w/contrast/noncontrast Palak Thurman DO Work Phone: Start: 02-20-2025 Basic metabolic pane l calcium total Mejgon Avelino Thurman DO Work Phone: Start: 02-14-2025 Follow-up visit Follow-up MIKALA DAY Start: 02-01-2025 Blood count hematocrit Chantell Laquidara DO Work Phone: Start: 02-01-2025 Comprehensive metabo lic panel Barb Dawkins MD Work Phone: Start: 01-31-2025 Blood count hematocrit Chantell Laquidara DO Work Phone: Start: 01-31-2025 Comprehensive metabo lic panel Barb Dawkins MD Work Phone: Start: 01-30-2025 Glucose quantitative blood xcpt reagent strip Barb aDwkins MD Work Phone: Start: 01-30-2025 IR CVC [...] Start: 01-25-2025 Compatibility each u nit electronic [employer] Start: 01-25-2025 End: 01-25-2025 TRANSFUSE RED BLOOD CELLS [employer] DO Start: 01-25-2025 Basic metabolic pane l calcium total Chantell Laquidara DO Work Phone: Start: 01-25-2025 Blood typing serolog ic abo [employer] Start: 01-24-2025 Prothrombin time Linda Owens MD [...] total Chantell Hill DO Work Phone: Start: 01-22-2025 Glucose quantitative [...] total Chantell Hill DO Work Phone: Start: 01-21-2025 End: 01-22-2025 Fibrin dgradj products d-dimer quantitative Bruce Nguyen MD Work Phone: Start: 01-21-2025 Glucose quantitative blood xcpt reagent strip Quiana Jeffery DO Work Phone: Start: 01-21-2025 Prothrombin time Bob Watson MD Work Phone: Start: 01-21-2025 Glucose quantitative blood xcpt reagent strip Quiaan Jeffery DO Work Phone: Start: 01-21-2025 End: 01-21-2025 ESOPHAGOGASTRODUODENOSCOP Y, DIAGNOSTIC Mitchellu Parth VASQUEZ Work Phone: Start: 01-21-2025 Blood count complete automated Crystal D. Meranto RIPSAW GRADER - APPLICATION HELPER Work Phone: Start: 01-21-2025 Glucose quantitative blood [...] c ntrst mtrl w/wo cntrst img Japheth Mariotavandana Holt DO Work Phone: Start: 01-20-2025 Blood [...] History of abd ominal surgery Sydni Husain [employer]SAW GRADER - APPLICATION HELPER Work Phone: Start: 10-12-2024 Insj non-tunneled ce ntral venous cath age 5 yr/> Rudolph German [employer] Start: 10-12-2024 MS AN CENTRAL LINE T RIPLE LUMEN Rudolph German [employer] Start: 10-12-2024 MS AN ELECTIVE ENDOTRACHEAL AIRWAY Rudolph German [employer] Start: 10-12-2024 Us vasc access sits vsl patency ndl entry Rudolph German [employer] Start: 10-12-2024 ANESTHESIA ARTERIAL LINE PLACEMENT Rudolph German [employer] Start: 10-03-2024 Ct head/brain w/o contrast material [...] vaccination due to patient refusal Sasha Lemons [employer] GRADER - APPLICATION HELPER Work Phone: Start: 08-17-2023 Echo tthrc r-t 2d w/wom-mode compl spec&colr d Earlene Irving MD Work Phone: Start: 08-17-2023 Thyrotropin [Units/volume] in Serum or Plasma [facility] Work Phone: Start: 08-17-2023 Basic metabolic pane l calcium total Earlene Irving MD Work Phone: Start: 08-16-2023 End: 08-16-2023 Basic metabolic panel calcium total Sha N Roberta PA-C Work Phone: Start: 08-16-2023 Radiologic exam ches t single view Sha N Roberta PA-C Work Phone: Start: 08-16-2023 Ecg routine ecg w/le ast 12 lds i&r only Dangelo Horne DO Work Phone: Start: 10-17-2020 Special treatments a nd procedures Cindy Patel Work Phone: Start: 03-13-2020 Ecg routine ecg w/le ast 12 lds trcg only w/o i&r [place] Provider Start: 03-13-2020 BASIC METABOLIC PNL Tati farooq ([employer] Business [employer] Architect) [place] Work Phone: Start: 03-13-2020 CBC Darya (A prn Business Solutions Architect) Zachary Work Phone: Start: 03-13-2020 MDRD GFR Darya (A prn Business Solutions Architect) Zachary Work Phone: Start: 03-13-2020 PROTHROMBIN TIME/PT Tati farooq ([employer]ant Business Solutions Architect) Zachary Work Phone: Start: 10-27-2019 Basic metabolic [...] Basic metabolic panel calcium total Delon Jessica [employer]SAW GRADER - APPLICATION HELPER Work Phone: Start: 10-22-2019 GLOMERULAR BASEMENT MEMBRANE (GBM) ANTIBODY IGG Randolph Liz MD Work Phone: Start: 10-21-2019 Radiologic exam abdo men 1 view Brett Encarnacion MD Work Phone: Start: 10-21-2019 End: 10-21-2019 Dup-scan artl shayan abdl/pel/scrot&/rpr orgn com Brett Encarnacion MD Work Phone: Start: 10-21-2019 Basic metabolic pane l calcium total Delon Jessica [employer]W GRADER - APPLICATION HELPER Work Phone: Start: 10-20-2019 Basic metabolic pane l calcium total Brett Encarnacion MD Work Phone: Start: 10-20-2019 TRANSFUSE RED BLOOD CELLS Delon Jessica [employer]W GRADER - APPLICATION HELPER Work Phone: Start: 10-20-2019 TRANSFUSE RED BLOOD CELLS Delon Jessica [employer]W GRADER - APPLICATION HELPER Work Phone: Start: 10-20-2019 Blood count hemoglobin Delon Jessica RIPSAW GRADER - APPLICATION HELPER Work Phone: Start: 10-20-2019 Basic metabolic pane l calcium total Delon Jessica RIPSAW GRADER - APPLICATION HELPER Work Phone: Start: 10-20-2019 RBC morphology findi ng Nom (Bld) Delon Jessica [employer]SAW GRADER - APPLICATION HELPER Work Phone: Start: 10-19-2019 Basic metabolic pane [...] Phone: Comment on above: Test Performed by [facility], [address] [place], [place], [place] [address] Start: 10-19-2019 End: 10-19-2019 ADD ON LAB TEST Callie Nieves DO Work Phone: Start: 10-19-2019 Ct abdomen & pelvis w/o contrast material Callie Gomezh DO Work Phone: Start: 10-19-2019 BLOOD OCCULT STOOL S CREEN #1 Callie Gomezh DO Work Phone: Start: 10-19-2019 Blood typing serolog ic abo Callie Gomezh DO Work Phone: Start: 10-19-2019 Comprehensive metabo lic panel Callie Gomezh DO Work Phone: Start: 10-19-2019 Comprehensive metabo lic panel Callie Gomezh DO Work Phone: H/O: surgery History of abdom inal surgery Sydni Husain RIPSAW GRADER - APPLICATION HELPER Work Phone: H/O: surgery History of abdom inal surgery Sydni Husain RIPSAW GRADER - APPLICATION HELPER Work Phone: H/O: surgery History of abdom inal surgery Sydni Husain RIPSAW GRADER - APPLICATION HELPER Work Phone: H/O: surgery History of abdom inal surgery Sydni Husain RIPSAW GRADER - APPLICATION HELPER Work Phone: H/O: surgery History of abdom inal surgery Sydni Husain RIPSAW GRADER - APPLICATION HELPER Work Phone: H/O: surgery History of abdom inal surgery Sydni Husain RIPSAW GRADER - APPLICATION HELPER Work Phone: Vaccine refused by patient Missed vaccination due to patient refusal Palak Thurman DO Work Phone: Plan of Treatment Date Care Activity Detail Author Start: 2040 RSV Immunization for Adults (1 - 1-dose 75+ series) RSV Immunization for Adults (1 - 1-dose 75+ series) [facility] Start: 2040 [facility] Start: 01-24-2035 Screening for malignant neoplasm of colon [facility] Start: 03-14-2030 Lipid panel Lipid Panel [facility] Start: 04-05-2026 Creatinine measurement Creatinine Level [facility] Start: 04-05-2026 Potassium measurement Potassium Level [facility] Start: 03-21-2026 Creatinine measurement Creatinine Level [facility] Start: 03-21-2026 Potassium measurement Potassium Level [facility] Start: 03-13-2026 Screening for malignant neoplasm of lung Lung Cancer Screening [facility] Start: 03-05-2026 Creatinine measurement [facility] Start: 03-05-2026 Potassium measurement [facility] Start: 02-23-2026 Creatinine measurement Creatinine Level [facility] Start: 02-23-2026 Echocardiography Echocardiogram [facility] Start: 02-23-2026 Potassium measurement Potassium Level [facility] Start: 02-23-2026 [facility] Start: 02-12-2026 Creatinine measurement Creatinine Level [facility] Start: 02-12-2026 Potassium measurement Potassium Level [facility] Start: 02-01-2026 Creatinine measurement [facility] Start: 02-01-2026 Potassium measurement [facility] Start: 01-16-2026 Creatinine measurement Creatinine Level [facility] Start: 01-16-2026 Potassium measurement Potassium Level [facility] Start: 01-15-2026 Creatinine measurement Creatinine Level [facility] Start: 01-15-2026 Potassium measurement Potassium Level [facility] Start: 01-12-2026 Creatinine measurement Creatinine Level [facility] Start: 01-12-2026 Potassium measurement Pot[facility] Start: 01-08-2026 Creatinine measurement Creatinine Level [facility] Start: 01-08-2026 Potassium measurement Potassium Level [facility] Start: 01-05-2026 Potassium measurement Potassium Level [facility] Start: 01-01-2026 Creatinine measurement Creatinine Level [facility] Start: 01-01-2026 Potassium measurement Pot[facility] Start: 12-30-2025 Creatinine measurement Creatinine Level [facility] Start: 12-30-2025 Potassium measurement Potassium Level [facility] Start: 12-25-2025 Creatinine measurement Creatinine Level [facility] Start: 12-25-2025 Potassium measurement Potassium Level [facility] Start: 12-22-2025 Creatinine measurement Creatinine Level [facility] Start: 12-22-2025 Potassium measurement Potassium Level [facility] Start: 12-18-2025 Creatinine measurement Creatinine Level [facility] Start: 12-18-2025 Potassium measurement Potassium Level [facility] Start: 12-15-2025 Creatinine measurement Creatinine Level [facility] Start: 12-15-2025 Potassium measurement Potassium Level [facility] Start: 12-11-2025 Creatinine measurement Creatinine Level [facility] Start: 12-11-2025 Potassium measurement Potassium Level [facility] Start: 12-04-2025 Creatinine measurement Creatinine Level [facility] Start: 12-04-2025 Potassium measurement Potassium Level [facility] Start: 12-01-2025 Creatinine measurement Creatinine Level [facility] Start: 12-01-2025 Potassium measurement Potassium Level [facility] Start: 11-30-2025 Creatinine measurement Creatinine Level [facility] Start: 11-30-2025 Potassium measurement Potassium Level [facility] Start: 11-29-2025 Creatinine measurement Creatinine Level [facility] Start: 11-29-2025 Potassium measurement Potassium Level [facility] Start: 11-24-2025 Echocardiography Echocardiogram [facility] Start: 11-24-2025 [facility] Start: 2025 RSV Immunization aged 60 or older (1 - 1-dose 60+ series) RSV Immunization aged 60 or older (1 - 1-dose 60+ series) [facility] Start: 11-03-2025 Creatinine measurement Creatinine Level [facility] Start: 11-03-2025 Potassium measurement Potassium Level [facility] Start: 11-02-2025 Echocardiography Echocardiogram [facility] Start: 10-11-2025 Screening for malignant neoplasm of lung [facility] Start: 05-28-2025 Influenza vaccination [facility] Start: 05-28-2025 [facility] Start: 04-26-2025 End: 04-26-2025 Patient encounter procedure 04/26/2025 9:20 AM EDT Office Visit [facility] [place] [address] [place] [phone] Yasemin Lucas, RIPSAW GRADER - APPLICATION HELPER [address] [place] [address] [facility] [place] Start: 04-12-2025 End: 04-12-2025 Patient encounter procedure 04/12/2025 3:00 PM EDT Appointment [facility] [address] [place] [phone] [facility] Start: 04-05-2025 End: 04-05-2025 ambulatory [facility] Start: 04-05-2025 End: 04-05-2025 Patient encounter procedure 04/05/2025 1:00 PM EDT Office Visit [facility] [address] [place] [address] Sophia Lara, RIPSAW GRADER - APPLICATION HELPER [address] [place] [address] [facility] Start: 04-03-2025 End: 04-03-2025 ambulatory [facility] Start: 04-03-2025 End: 04-03-2025 Patient encounter procedure 04/03/2025 10:45 AM EDT Office Visit [facility] [address] [place] [address] Zoe Valadez, RIPSAW GRADER - APPLICATION HELPER [address] [facility] [place] [phone] [facility] Start: 03-26-2025 End: 02-23-2026 CT Chest WO contrast CT chest wo IV contrast Imaging Routine Hemoptysis Expected: 03/26/2025, Expires: 02/23/2026 [facility] Work Phone: Comment on above: Expected: 03/26/2025, Expires: Start: 02-15-2025 End: 02-15-2025 ambulatory [facility] Start: 02-15-2025 End: 02-15-2025 Patient encounter procedure [facility] Start: 02-14-2025 End: 02-14-2025 ambulatory [facility] [place] Start: 02-14-2025 End: 02-14-2025 Patient encounter procedure [facility] Start: 12-25-2024 End: 12-25-2024 Patient encounter procedure 12/25/2024 10:00 AM EDT Office Visit [facility] [address] [place] [id number] Sophia Lara APRN - APPLICATION HELPER [address] [place] [address] [facility] Start: 12-18-2024 End: 12-18-2024 Telemedicine consultation with patient 12/18/2024 1:00 PM EDT Telemedicine [facility] Cardiovascular Thoracic Surgery [facility] [place] [address] [place] [phone] Osiris Terrell, RIPSAW GRADER [facility] [address] [place] [address] [facility] [place] Start: 10-09-2024 End: 10-09-2024 Patient encounter procedure 10/09/2024 3:00 PM EST Appointment [facility] [address] [facility] [address] [place] [phone] Jr Shah MD [address] [facility] [address] [place] [address] [facility] Start: 09-27-2024 Medicare Advantage Annual Wellness Visit Medicare Advantage Annual Wellness Visit [facility] Start: 09-27-2024 [facility] Start: 09-13-2024 End: 09-13-2024 Patient encounter procedure 09/13/2024 3:00 PM EST Appointment [facility] [address] [facility] [address] [place] [phone] Jr Shah MD [address] [facility] [address] [place], [place] [id number] [facility] Start: 09-11-2024 End: 08-28-2026 US Heart Transthoracic Transthoracic echocardiogram (TTE) complete with contrast, bubble, strain, and 3D PRN CV Echocardiography Routine Nonrheumatic aortic valve stenosis Expected: 09/11/2024 (Approximate), Expires: 08/28/2026 [facility] Work Phone: Comment on above: Expected: 09/11/2024 (Approximate), Expi res: 08/28/2026 Start: 08-17-2024 Thyroid stimulating hormone measurement TSH Level [facility] Start: 05-28-2024 COVID-19 Vaccine ( season) COVID-19 Vaccine () [facility] Start: 05-28-2024 Influenza vaccination [facility] Start: 05-28-2024 [facility] Start: 02-07-2024 End: 02-07-2024 Patient encounter procedure [facility] Start: 11-29-2023 End: 11-29-2023 Patient encounter procedure 11/29/2023 3:00 PM EST Appointment [facility] [address] [place] [phone] Fransisco Pineda, DENIA [address] [place] [address] [facility] [address] [facility] Start: 11-24-2023 End: 11-24-2023 Patient encounter procedure 11/24/2023 1:30 PM EST Office Visit [facility] Dermatology [address] [facility] [address] [place] [phone] Madhuri De La Rosa MD [address] [facility] [place] [address] [facility] Start: 09-27-2023 Behavioral Health Screening Behavioral Health Screening [facility] Start: 09-27-2023 Medicare Advantage Annual Wellness Visit Medicare Advantage Annual Wellness Visit [facility] Start: 09-07-2023 End: 09-07-2024 CT Chest for screening WO contrast CT lung screening low dose Imaging Routine Nicotine dependence, cigarettes, uncomplicated Personal history of nicotine dependence Expected: 09/07/2023, Expires: 09/07/2024 [facility] Work Phone: Comment on above: Expected: 09/07/2023, Expires: Start: 05-28-2023 COVID-19 Vaccine ( season) COVID-19 Vaccine ( season) [facility] Start: 05-28-2023 Influenza vaccination Influenza Vaccine (#1) [facility] Start: 05-10-2023 DIABETES SCREEN DIABETES SCREEN [facility] Start: 05-10-2023 Diabetes Screening Diabetes Screening [facility] Start: 03-13-2023 DIABETES SCREEN DIABETES SCREEN [facility] Start: 05-28-2022 Influenza vaccination INFLUENZA (Season Ended) [facility] Start: 10-22-2021 End: 10-22-2021 Patient encounter procedure 10/22/2021 Office Visit Dermatology Madhuri De La Rosa MD [address] [facility], [address] [place] [id number] [facility] Start: 05-28-2021 Influenza vaccination [facility] Start: 05-20-2021 Hepatitis B Vaccines (1 of 1 - Risk Dialysis 4-dose series) Hepatitis B Vaccines (1 of 1 - Risk Dialysis 4-dose series) [facility] Start: 05-20-2021 [facility] Start: 05-10-2021 HEMOGLOBIN/HEMATOCRIT HEMOGLOBIN/HEMATOCRIT [facility] Start: 05-10-2021 SERUM CREATININE SERUM CREATININE [facility] Start: 12-08-2020 Annual Wellness Visit (AWV) Annual Wellness Visit (AWV) [facility] Start: 2020 PROSTATE CANCER SCREENING DISCUSSION PROSTATE CANCER SCREENING DISCUSSION [facility] Start: 2020 Prostate specific antigen measurement Prostate Cancer Screening Discussion [facility] Start: 11-12-2020 End: 11-12-2020 Office Visit 11/12/2020 Office Visit Dermatology Madhuri De La Rosa MD [address] [facility], [address] [place] [address] [facility] Start: 10-19-2020 Screening for malignant neoplasm of colon [facility] Start: 05-28-2020 Influenza vaccination [facility] Start: 05-28-2019 Influenza vaccination Flu vaccine (#1) [facility] Work Phone: Start: 2015 Screening for malignant neoplasm of colon Colon cancer screen colonoscopy [place], [place] Start: 2015 Shingles Vaccine (1 of 2) Shingles Vaccine (1 of 2) [facility] Start: 2015 SHINGRIX VACCINE (1 of 2) SHINGRIX VACCINE (1 of 2) [facility] Start: 2015 Tuberculosis screening COLORECTAL CANCER SCREENING,SEE MODIFIER [facility] Start: 2015 Zoster Vaccines (1 of 2) Zoster Vaccines (1 of 2) [facility] Start: 2015 [facility] Start: 2010 COLOGUARD (FIT-DNA) COLOGUARD (FIT-DNA) [facility] Start: 2010 Colonoscopy COLONOSCOPY [facility] Start: 2010 COLORECTAL CANCER SCREENING COLORECTAL CANCER SCREENING [facility] Start: [address] COLONOGRAPHY [facility] Start: 2010 FECAL OCCULT BLOOD FECAL OCCULT BLOOD [facility] Start: 2010 Screening for malignant neoplasm of colon [facility] Start: 2010 SIGMOIDOSCOPY SIGMOIDOSCOPY [facility] Start: 2005 Diabetes screen Diabetes screen [place], [place] Start: 2005 Lipid panel Lipid screen [facility] Start: 2000 Diabetes screen Diabetes screen [facility] Start: 2000 Lipid panel Lipid Screening [facility] Start: 2000 LIPID SCREEN LIPID SCREEN [facility] Start: 1984 DTaP/Tdap/Td vaccine (1 - Tdap) DTaP/Tdap/Td vaccine (1 - Tdap) [facility] Start: 1984 DTaP/Tdap/Td Vaccines (1 - Tdap) DTaP/Tdap/Td Vaccines (1 - Tdap) [facility] Start: 1984 Pneumococcal Vaccine: 50+ Years (1 of 2 - PCV) Pneumococcal Vaccine: 50+ Years (1 of 2 - PCV) [facility] Start: 1984 Urine microalbumin profile [facility] Start: 1984 [facility] Start: 1983 ANNUAL PCP TEAM CHRONIC DISEASE VISIT ANNUAL PCP TEAM CHRONIC DISEASE VISIT [facility] Start: 1983 Anxiety Screening Anxiety Screening [facility] Start: 1983 Depression Screening Depression Screening [facility] Start: 1983 Diabetes mellitus screening [facility] Start: 1983 HEPATITIS C SCREENING HEPATITIS C SCREENING [facility] Start: 1983 HIV SCREENING HIV SCREENING [facility] Start: 1983 HIV screening HIV Screening [facility] Start: 1977 Adult depression screening assessment DEPRESSION SCREENING [facility] Start: 1977 [facility] Start: 1971 Pneumococcal 0-64 years Vaccine (1 of 1 - PPSV23) Pneumococcal 0-64 years Vaccine (1 of 1 - PPSV23) [place] Start: 1971 Pneumococcal 0-64 years Vaccine (1 of 2 - PPSV23) Pneumococcal 0-64 years Vaccine (1 of 2 - PPSV23) [facility] Start: 1971 Pneumococcal vaccination Pneumococcal Vaccine (1 of 2 - PCV) [facility] Start: 1971 Pneumococcal Vaccine: Pediatrics (0 to 5 Years) and At-Risk Patients (6 to 64 Years) (1 - PCV) Pneumococcal Vaccine: Pediatrics (0 to 5 Years) and At-Risk Patients (6 to 64 Years) (1 - PCV) [facility] Start: 1971 Pneumococcal Vaccine: Pediatrics (0 to 5 Years) and At-Risk Patients (6 to 64 Years) (1 of 2 - PCV) Pneumococcal Vaccine: Pediatrics (0 to 5 Years) and At-Risk Patients (6 to 64 Years) (1 of 2 - PCV) [facility] Start: 1970 COVID-19 Vaccine (1) COVID-19 Vaccine (1) [facility] Start: 1966 MMR Vaccines (1 of 1 - Standard series) MMR Vaccines (1 of 1 - Standard series) [facility] Start: 1966 [facility] Start: 05-17-1966 COVID-19 Vaccine (#1) COVID-19 Vaccine (#1) [facility] Start: 05-17-1966 Examination of skin Derm Melanoma Skin Check [facility] Start: 1965 Lipid panel [facility] Start: 1965 Medicare Advantage Annual Wellness Visit (AWV) Medicare Advantage Annual Wellness Visit (AWV) [facility] Start: 1965 Screening for malignant neoplasm of colon [facility] Basic metabolic 2000 panel - Serum or Plasma Basic Metabolic Panel Lab Routine Daily until discontinued starting 10/23/2019, 5 completed [employer] Work Phone: Comment on above: Daily until discontinued starting 2019, 5 completed CBC W Auto Different ial panel - Blood CBC Auto Differential Lab Routine Daily until discontinued starting 10/23/2019, 5 completed [facility] Work Phone: Comment on above: Daily until discontinued starting 2019, 5 completed End: 12-25-2022 COLONOSCOPY DIAGNOSTIC COLONOSCOPY DIAGNOSTIC Endoscopy Routine Acute blood loss anemia Rectal bleeding 1 Occurrences starting 12/25/2021 until 12/25/2022 [facility] Work Phone: Comment on above: 1 Occurrences starting 12/25/2021 until 12/25/2022 End: 12-30-2022 COLONOSCOPY DIAGNOSTIC COLONOSCOPY DIAGNOSTIC Endoscopy Routine Other iron deficiency anemia Rectal bleeding 1 Occurrences starting 12/30/2021 until 12/30/2022 [facility] Work Phone: Comment on above: 1 Occurrences starting 12/30/2021 until 12/30/2022 Electrocardiogram EKG BIC 2019 3:36 PM EDT [facility] End: 01-22-2025 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 [facility] Work Phone: End: 10-19-2019 Hemodialysis inpatient Hemodialysis inpatient Dialysis Routine One Time for 1 Occurrences starting 10/19/2019 until 10/19/2019 [employer] Work Phone: Comment on above: One Time for 1 Occurrences starting 09/28 until 10/19/2019 End: 10-21-2019 Hemodialysis inpatient Hemodialysis inpatient Dialysis Routine One Time for 1 Occurrences starting 10/21/2019 until 10/21/2019 [employer] Work Phone: Comment on above: One Time for 1 Occurrences starting 09/28 until 10/21/2019 End: 10-23-2019 Hemodialysis inpatient Hemodialysis inpatient Dialysis Routine One Time for 1 Occurrences starting 10/23/2019 until 10/23/2019 [employer] Work Phone: Comment on above: One Time for 1 Occurrences starting 09/28 until 10/23/2019 Hemodialysis inpatient Hemodialy sis inpatient Dialysis Routine Every MWF until discontinued starting 10/27/2019 [employer] Work Phone: Comment on above: Every MWF until discontinued starting End: 01-26-2025 Hemoglobin [Mass/volume] in Blood [facility] Work Phone: End: 02-21-2025 Legionella and Streptococcus Urine Antigen [facility] Work Phone: Magnesium [Mass/volu me] in Serum or Plasma MAGNESIUM Lab Routine Daily until discontinued starting 10/23/2019, 5 completed [facility] Work Phone: Comment on above: Daily until discontinued starting 2019, 5 completed End: 01-22-2025 Peripheral blood smear [facility] End: 01-22-2025 Peripheral Blood Smear [facility] Peripheral blood smear [facility] Peripheral Blood Smear [facility] Phosphate [Mass/volu me] in Serum or Plasma Phosphorus Lab Routine Daily until discontinued starting 10/23/2019, 5 completed [facility] Work Phone: Comment on above: Daily until discontinued starting 2019, 5 completed End: 09-15-2021 Special treatments and procedures [facility] Work Phone: Comment on above: Once for 1 Occurrences starting 09/15/20 until 09/15/2021 End: 10-26-2019 Surgical Pathology Surgical Pathology Lab STAT Once for 1 Occurrences starting 10/26/2019 until 10/26/2019 [employer] Work Phone: Comment on above: Once for 1 Occurrences starting 10/26/19 until 10/26/2019 Surgical Pathology Surgical Path ology Lab STAT 10/26/2019 10:00 AM EST [employer] Work Phone: End: 02-21-2025 Urine Hold Cup [facility] Immunizations Immunization Date Immunization Notes Care Provider Fa [facility] 05-20-2020 hepatitis B vaccine, unspecified formulation Jese Frank MD Work Phone: [facility] 01-19-2020 hepatitis B vaccine, unspecified formulation Jese Frank MD Work Phone: [employer] [facility] 12-19-2019 hepatitis B vaccine, unspecified formulation Jese Frank MD Work Phone: [facility] 11-15-2019 hepatitis B vaccine, unspecified formulation Jese Frank MD Work Phone: [facility] Payers Date Payer Category Payer Self-pay 2023 Medicare HMO [id number] 2023 Medicare [id number] 2022 Medicaid HMO [id number] 2020 Medicaid [id number] 2020 Medicare [id number] 2020 Medicare [id number] 2020 Unknown [id number] 2020 Medicaid MEDICAID [facility] MEDICAID [id number] 2020-Present Medicaid [id number] 2019 Medicare MEDICARE MEDICAR E A AND B [id number] 2019-Present [place] Medicare [id number] Unknown [id number] Unknown [id number] Unknown [id number] Unknown [id number] Unknown [id number] Unknown [id number] Unknown [id number] Unknown [id number] Unknown [id number] Unknown [id number] Social History Date Type Detail Facility Start: 1993 End: 03-15-2025 Tobacco smoking status [facility] Current every day smoker [facility] Start: 1993 History of tobacco use Cigarette Smoker [facility] Work Phone: Start: 03-13-2020 End: 03-13-2025 Cigarettes smoked current (pack per day) - Reported [facility] Work Phone: Start: 03-13-2020 End: 03-15-2025 Tobacco use and exposure Never used [facility] Start: 03-13-2020 End: 08-16-2023 Alcohol intake Current drinker of alcohol (finding) [facility] Work Phone: Start: 1965 Sex Assigned At Not on file [facility] Work Phone: Start: 12-15-2021 End: 05-01-2023 Exposure to SARS-CoV-2 (event) Not sure [facility] Start: 10-19-2019 Alcohol Comment on weekends [facility] Work Phone: Start: 12-25-2021 End: 03-19-2025 Alcohol intake Ex-drinker (finding) [facility] Start: 1965 Sex Assigned At Male [facility] Start: 05-01-2023 End: 03-13-2025 Alcohol Use Disorder Identification Test - Consumption [AUDIT-C] [facility] How often to you hav e a drink containing alcohol? Never [facility] How many [address] inks containing alcohol do you have on a typical day? Patient does not drink [facility] Start: 11-15-2020 Gender identity Identifies as male gender (finding) [facility] Start: 08-10-2020 Sexual orientation Heterosexual (finding) [facility] Start: 04-27-2022 Sex Male (finding) [facility] History of tobacco use Passive smoker [facility] Start: 10-13-2024 Tobacco Comment Started at 28, 3 PPD, tapered down to 1 PPD in 2020 after quitting drinking. 10/27/24 [facility] Tobacco smoking stat us [facility] Unknown if ever smoked [facility] Work Phone: Start: 02-20-2025 Tobacco smoking status NHIS Ex-smoker [facility] Start: 1993 History of tobacco use Current smoker [facility] How often do you nee d to have someone help you when you read instructions, pamphlets, or other written material from your doctor or pharmacy [SILS] Sometimes [facility] Has the [employer], or water [employer] threatened to shut off services in your home in past 12Mo No [facility] Do you feel stress - tense, restless, nervous, or anxious, or unable to sleep at night because your mind is troubled all the time - these days [OSQ] To some extent [facility] (I/We) worried wheth er (my/our) food would run out before (I/we) got money to buy more. Never true [facility] Medical Equipment Procedure Code Equipment Code Equipment Origin al Text Equipment Identifier Dates [id number] Start: 10-12-2024 [id number] Start: 10-09-2024 [id number] Start: 10-14-2024 [id number] Start: 10-14-2024 [id number] Start: 10-14-2024 [id number] Start: 10-14-2024 [id number] Start: 10-14-2024 [id number] Start: 10-14-2024 [id number] Start: 10-14-2024 [id number] Start: 11-03-2024 [id number] Start: 01-30-2025 Functional Status Date Assessment Result Facility 03-13-2025 Total score [AUDIT-C] 0 03/13/20 8:25 AM EDT Karo Pérez RN [facility] Clinical Notes 10-24-2019 to 04-05-2025 Discharge InstructionsMarla Daigle RN - 04/05/2025 2:41 PM EDTCamy Daigle RN - 04/05/2025 2:41 PM Nicolas Nunes RN - 04/05/2025 1:40 PM Nicolas Nunes RN - 04/05/2025 1:40 PM EDT Note Date & Type Note Facility 04-05-2025 Hospital Discharg e instructions Barbara Mckeon PA-C - 04/05/2025 5:13 PM EDT In the medical field, there is always a level of diagnostic uncertainty, even if this uncertainty is low. For this reason, it is important to immediately return to the emergency department if you have any new symptoms, worsening symptoms, change of symptoms, or if you have any other concerns. We would be happy to re-evaluate you. Otherwise, please take your medications as prescribed and follow-up as recommended. documented in this encounter [facility] 04-05-2025 Nurse Note Patient Name: Jun Snyder Patient : 1965 Acct: [id number] Date of Admission: 04/05/2025 Room/Bed: Code Status: Prior Allergies: Allergies[1] Diagnosis: Problem List[2] Treatment: Hemodialysis 1:1 Priority: Routine Location: ED Diabetic: No NPO: No Isolation Precautions: Dialysis Consent for Treatment Verified: Yes Blood Consent Verified: Not Applicable ICEBOAT: Identify, Consent, Equipment, HepB Status, Orders Complete, Access Verified, Timeliness Second Clinician Verifying: E. Des, Rn Time out performed prior to access at 1358. Report Received from Primary RN at 1340 Primary RN (First Initial, Last Name, Title): Jonathan Nunes Rn Incapacitated Nurse Education Completed: Yes EO HBsAg ONLY: Date Drawn: 03/20/2025 Results: Negative HBsAb: Date Drawn: 03/20/2025 Results: Susceptible <10 Order Dialyzer: Nipro Na+ [...] Dressing: na Site Prep: Medical Aseptic Technique Flows: Good and Patent If access problem, who was notified: Pre and Post-Assessment Patient Vitals for the past 8 hrs: Level of Consciousness Oriented X Heart Rhythm O2 Device Bilateral Breath Sounds Skin Color Skin Condition/Temp Abdomen Inspection Bowel Sounds (All Quadrants) Pre-Hemodialysis Comments 04/05/25 1351 Alert (0) 3 Regular None (Room air) Clear;Diminished [place];Ecchymosis Warm;Dry Soft Present pt consents to dialysis treatment 04/05/25 1715 Alert (0) 3 Regular None (Room air) Clear Ecchymosis Warm;Dry Soft Present -- Labs Lab Results Component Value Date/Time WBC 6.8 04/05/2025 1025 HGB 9.3 (L) 04/05/2025 1025 HGB 11.8 (L) 03/13/2025 0902 HCT 30.1 (L) 04/05/2025 1025 PLT 329 04/05/2025 1025 NA 140 04/05/2025 1025 K 5.5 (H) 04/05/2025 1025 CL 101 04/05/2025 1025 CO2 29 04/05/2025 1025 BUN 34 (H) 04/05/2025 1025 CREATININE 3.52 (H) 04/05/2025 1025 CREATININE 9.99 (H) 10/27/2019 0545 CALCIUM 9.0 04/05/2025 1025 PHOS 2.6 02/23/2025 0032 IV Drips and Rate/Dose Continuous Meds[3] Safety - Before each treatment: Dialysis Machine No.: [id number] RO Machine Number: [id number] Dialyzer Lot No.: [id number] Tubing Lot Number: [id number] All Connections Secure: Yes Venous Parameters Set: Yes Arterial Parameters Set: Yes NS Bag: Yes Saline Line Double Clamped: Yes Dialyzer: Nipro Prime Volume (mL): 200 mL RO Machine Number: [id number] RO Machine Log Sheet Completed: Yes Machine Alarm Self Test: Completed, Passed (1351) (04/05/25 1351) Air Foam Detector: Tested, Proper Function Extracorporeal Circuit Tested for Integrity: Yes Machine Conductivity: 13.6 Manual Conductivity: 13.6 Manual Ph: 7 Bleach Test (Neg): Yes Bath Temperature: 36 C (96.8 F) Conductivity Meter Serial #: [id number] Machine Functioning Alarm Free? Yes Dialysis Bath: K+ (Potassium): 2 Ca+ (Calcium): 2.5 Na+ (Sodium): 137 HCO3 (Bicarb): 35 Bicarbonate Concentrate Lot No.: [id number] Acid Concentrate Lot No.: [id number] Chlorine Testing - Before each treatment and every 4 hours: Time On: 1403 Treatment Goal: 2L Weight Height: 177.8 cm (5' 10") (04/05/25 1015) Weight: 66.7 kg (147 lb) (04/05/25 1015) BMI (Calculated): 21.09 (04/05/25 1015) 1st check: less than 0.1 ppm at: 1350 2nd check: less than 0.1 ppm at: 1500 3rd check: Not Applicable (if greater than 0.1 ppm, then check every 30 minutes from secondary) Access Flows and Pressures Patient Vitals for the past 8 hrs: Blood Flow Rate (mL/min) Ultrafiltration Rate (ml/hr) Arterial Pressure (mmHg) Venous Pressure (mmHg) TMP DFR Access Visible Intra-Hemodialysis Comments 04/05/25 1403 200 mL/min 830 ml/hr -20 mmHg 90 mmHg 120 600 Yes treatment started, lines secure, call light within pt's reach 04/05/25 1415 450 mL/min 830 ml/hr -150 mmHg 220 mmHg 120 600 Yes bfr to 450 04/05/25 1430 450 mL/min 830 ml/hr -150 mmHg 220 mmHg 120 600 Yes pt tolerating treatment well, uf removal 391 04/05/25 1445 450 mL/min 830 ml/hr -150 mmHg 220 mmHg 120 600 Yes pt sleeping, uf removal 597 04/05/25 1500 450 mL/min 830 ml/hr -160 mmHg 220 mmHg 120 600 Yes pt resting, respiratory movement, uf removal 789 04/05/25 1515 450 mL/min 830 ml/hr -160 mmHg 220 mmHg 120 600 Yes pt resting without complaint, uf removal 1003 04/05/25 1530 450 mL/min 830 ml/hr -150 mmHg 220 mmHg 110 600 Yes pt alert, no complaints, uf removal 1190 04/05/25 1545 450 mL/min 830 ml/hr -150 mmHg 220 mmHg 110 600 Yes pt resting,uf removal 1408 04/05/25 1600 450 mL/min 830 ml/hr -150 mmHg 210 mmHg 110 600 Yes vital signs stable,uf removal 1622 04/05/25 1615 450 mL/min 830 ml/hr -150 mmHg 210 mmHg 110 600 Yes pt resting, uf removal 1899 04/05/25 1630 450 mL/min 830 ml/hr -150 mmHg 200 mmHg 110 600 Yes pt resting,uf removal 20504/05/25 1645 450 mL/min 830 ml/hr -150 mmHg 200 mmHg 100 600 Yes pt alert, no complaints, uf removal 22404/05/25 1703 250 mL/min -- -- -- -- -- -- treatment complete, uf removal 2500 Vital Signs Patient Vitals for the past 24 hrs: BP Temp Temp src Pulse Resp SpO2 Height Weight 04/05/25 1715 105/71 36.6 C (97.9 F) -- 93 19 100 % -- -- 04/05/25 1703 119/80 -- -- 94 (!) 27 99 % -- -- 04/05/25 1645 128/80 -- -- 94 20 98 % -- -- 04/05/25 1630 127/79 -- -- 92 16 100 % -- -- 04/05/25 1615 127/83 -- -- (!) 120 17 98 % -- -- 04/05/25 1600 114/76 -- -- (!) 119 24 95 % -- -- 04/05/25 1545 121/84 -- -- (!) 118 15 97 % -- -- 04/05/25 1530 116/78 -- -- (!) 122 23 97 % -- -- 04/05/25 1515 125/86 -- -- (!) 118 16 99 % -- -- 04/05/25 1500 122/84 -- -- (!) 120 21 99 % -- -- 04/05/25 1445 130/86 -- -- (!) 115 22 100 % -- -- 04/05/25 1430 125/82 -- -- (!) 115 14 98 % -- -- 04/05/25 1415 127/81 -- -- (!) 117 17 99 % -- -- 04/05/25 1403 123/82 -- -- (!) 117 20 96 % -- -- 04/05/25 1358 -- -- -- (!) 113 17 95 % -- -- 04/05/25 1357 118/87 -- -- (!) 115 17 95 % -- -- 04/05/25 1351 97/66 36.6 C (97.9 F) -- 109 17 93 % -- -- 04/05/25 1344 97/66 -- -- 110 (!) 32 96 % -- -- 04/05/25 1330 131/83 -- -- (!) 115 18 97 % -- -- 04/05/25 1318 117/87 -- -- (!) 116 24 100 % -- -- 04/05/25 1230 128/82 -- -- (!) 115 15 98 % -- -- 04/05/25 1130 122/86 -- -- (!) 113 21 98 % -- -- 04/05/25 1100 131/86 -- -- (!) 117 24 97 % -- -- 04/05/25 1015 117/78 36.8 C (98.3 F) Oral (!) 118 15 98 % 1.778 m (5' 10") 66.7 kg (147 lb) Post-Dialysis Arterial Catheter Locking Solution: Not Applicable Venous Catheter Locking Solution: Not Applicable Post-Treatment Procedures: Blood returned, Access bleeding time < 10 minutes Machine Disinfection Process: Acid/Vinegar Clean, Heat Disinfect, Exterior Machine Disinfection Rinseback Volume (mL): 300 mL Total Liters Processed (L/min): 73 L/min Dialyzer Clearance: Clear Hemodialysis Intake (ml): 500 ml Hemodialysis Output (ml): 2500 ml NET Removed (ml): 2000 ml Tolerated Treatment: Good Patient Response to Treatment: stable Physician Notified: No Patient Disposition: Remain in ICU/ED Charge: $ IP Hemodialysis Charge: Hemodialysis Provider Notification Handoff complete and report given to Primary RN at 1720. Primary RN (First Initial, Last Name, Title): Jonathan Nunes Rn Education Person Educated: Patient Knowledge Base: Substantial Barriers to Learning?: None Preferred method of Learning: Oral Topic(s): emergency, Access Care, Signs and Symptoms of Infection, Fluid Management, and Procedural Teaching Tools: Explanation Response to Education: Verbalized Understanding [1] Allergies Allergen Reactions Lisinopril Swelling and Angioedema [2] Patient Active Problem List Diagnosis Anemia Paroxysmal A-fib ([facility]) ([facility]) HTN (hypertension) ESRD on hemodialysis ([facility]) ([facility]) IgA nephropathy determined by biopsy of kidney Diverticulosis Nonrheumatic aortic valve stenosis Calcification of abdominal aorta ([facility]) Missed vaccination due to patient refusal Tobacco abuse Alcohol use disorder in remission Atrial flutter, unspecified type ([facility]) RSV (acute bronchiolitis due to respiratory syncytial virus) Aortic stenosis Upper GI bleed S/P AVR Acute hypoxic respiratory failure ([facility]) Acute encephalopathy Pneumoperitoneum Gastric ulceration Severe malnutrition ([facility]) ([facility]) Pleural effusion Peritonitis due to fungus ([facility]) History of abdominal surgery Leg DVT (deep venous thromboembolism), acute, left ([facility]) 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, 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 of skin ([facility]) Tracheostomy dependence ([facility]) Leukocytosis Decubitus ulcer of sacral region, unstageable ([facility]) Pneumonia of both lungs due to methicillin susceptible Staphylococcus aureus (MSSA) ([facility]) Sacral osteomyelitis ([facility]) ([facility]) Acute respiratory failure with hypoxia ([facility]) [J96.01] Tracheostomy care ([facility]) [Z43.0] 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[facility]) nursing home (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 Complication of tracheostomy (CMS/HCC) (HCC) BRBPR (bright red blood per rectum) Hemoptysis SOB (shortness of breath) Moderate malnutrition (CMS/HCC) (HCC) Shortness of breath [3] [facility] 04-05-2025 Nurse Note Patient Name: Jun Snyder Patient : 1965 Acct: [id number] Date of Admission: 04/05/2025 Room/Bed: Code Status: Prior Allergies: Allergies[1] Diagnosis: Problem List[2] Treatment: Hemodialysis 1:1 Priority: Routine Location: ED Diabetic: No NPO: No Isolation Precautions: Dialysis Consent for Treatment Verified: Yes Blood Consent Verified: Not Applicable ICEBOAT: Identify, Consent, Equipment, HepB Status, Orders Complete, Access Verified, Timeliness Second Clinician Verifying: Jonathan Nunes Rn Time out performed prior to access at 1358. Report Received from Primary RN at 1340 Primary RN (First Initial, Last Name, Title): Jonathan Nunes Rn Incapacitated Nurse Education Completed: Yes EO HBsAg ONLY: Date Drawn: 03/20/2025 Results: Negative HBsAb: Date Drawn: 03/20/2025 Results: Susceptible <10 Order Dialyzer: Nipro Na+ [...] Dressing: na Site Prep: Medical Aseptic Technique Flows: Good and Patent If access problem, who was notified: Pre and Post-Assessment Patient Vitals for the past 8 hrs: Level of Consciousness Oriented X Heart Rhythm O2 Device Bilateral Breath Sounds Skin Color Skin Condition/Temp Abdomen Inspection Bowel Sounds (All Quadrants) Pre-Hemodialysis Comments 04/05/25 1351 Alert (0) 3 Regular None (Room air) Clear;Diminished [place];Ecchymosis Warm;Dry Soft Present pt consents to dialysis treatment 04/05/25 1715 Alert (0) 3 Regular None (Room air) Clear Ecchymosis Warm;Dry Soft Present -- Labs Lab Results Component Value Date/Time WBC 6.8 04/05/2025 1025 HGB 9.3 (L) 04/05/2025 1025 HGB 11.8 (L) 03/13/2025 0902 HCT 30.1 (L) 04/05/2025 1025 PLT 329 04/05/2025 1025 NA 140 04/05/2025 1025 K 5.5 (H) 04/05/2025 1025 CL 101 04/05/2025 1025 CO2 29 04/05/2025 1025 BUN 34 (H) 04/05/2025 1025 CREATININE 3.52 (H) 04/05/2025 1025 CREATININE 9.99 (H) 10/27/2019 0545 CALCIUM 9.0 04/05/2025 1025 PHOS 2.6 02/23/2025 0032 IV Drips and Rate/Dose Continuous Meds[3] Safety - Before each treatment: Dialysis Machine No.: [id number] RO Machine Number: [id number] Dialyzer Lot No.: [id number] Tubing Lot Number: [id number] All Connections Secure: Yes Venous Parameters Set: Yes Arterial Parameters Set: Yes NS Bag: Yes Saline Line Double Clamped: Yes Dialyzer: Nipro Prime Volume (mL): 200 mL RO Machine Number: [id number] RO Machine Log Sheet Completed: Yes Machine Alarm Self Test: Completed, Passed (1351) (04/05/25 1351) Air Foam Detector: Tested, Proper Function Extracorporeal Circuit Tested for Integrity: Yes Machine Conductivity: 13.6 Manual Conductivity: 13.6 Manual Ph: 7 Bleach Test (Neg): Yes Bath Temperature: 36 C (96.8 F) Conductivity Meter Serial #: [id number] Machine Functioning Alarm Free? Yes Dialysis Bath: K+ (Potassium): 2 Ca+ (Calcium): 2.5 Na+ (Sodium): 137 HCO3 (Bicarb): 35 Bicarbonate Concentrate Lot No.: [id number] Acid Concentrate Lot No.: [id number] Chlorine Testing - Before each treatment and every 4 hours: Time On: 1403 Treatment Goal: 2L Weight Height: 177.8 cm (5' 10") (04/05/25 1015) Weight: 66.7 kg (147 lb) (04/05/25 1015) BMI (Calculated): 21.09 (04/05/25 1015) 1st check: less than 0.1 ppm at: 1350 2nd check: less than 0.1 ppm at: 1500 3rd check: Not Applicable (if greater than 0.1 ppm, then check every 30 minutes from secondary) Access Flows and Pressures Patient Vitals for the past 8 hrs: Blood Flow Rate (mL/min) Ultrafiltration Rate (ml/hr) Arterial Pressure (mmHg) Venous Pressure (mmHg) TMP DFR Access Visible Intra-Hemodialysis Comments 04/05/25 1403 200 mL/min 830 ml/hr -20 mmHg 90 mmHg 120 600 Yes treatment started, lines secure, call light within pt's reach 04/05/25 1415 450 mL/min 830 ml/hr -150 mmHg 220 mmHg 120 600 Yes bfr to 450 04/05/25 1430 450 mL/min 830 ml/hr -150 mmHg 220 mmHg 120 600 Yes pt tolerating treatment well, uf removal 391 04/05/25 1445 450 mL/min 830 ml/hr -150 mmHg 220 mmHg 120 600 Yes pt sleeping, uf removal 597 04/05/25 1500 450 mL/min 830 ml/hr -160 mmHg 220 mmHg 120 600 Yes pt resting, respiratory movement, uf removal 789 04/05/25 1515 450 mL/min 830 ml/hr -160 mmHg 220 mmHg 120 600 Yes pt resting without complaint, uf removal 1003 04/05/25 1530 450 mL/min 830 ml/hr -150 mmHg 220 mmHg 110 600 Yes pt alert, no complaints, uf removal 1190 04/05/25 1545 450 mL/min 830 ml/hr -150 mmHg 220 mmHg 110 600 Yes pt resting,uf removal 1408 04/05/25 1600 450 mL/min 830 ml/hr -150 mmHg 210 mmHg 110 600 Yes vital signs stable,uf removal 1622 04/05/25 1615 450 mL/min 830 ml/hr -150 mmHg 210 mmHg 110 600 Yes pt resting, uf removal 1899 04/05/25 1630 450 mL/min 830 ml/hr -150 mmHg 200 mmHg 110 600 Yes pt resting,uf removal 2057 04/05/25 1645 450 mL/min 830 ml/hr -150 mmHg 200 mmHg 100 600 Yes pt alert, no complaints, uf removal 224604/05/25 1703 250 mL/min -- -- -- -- -- -- treatment complete, uf removal 2500 Vital Signs Patient Vitals for the past 24 hrs: BP Temp Temp src Pulse Resp SpO2 Height Weight 04/05/25 1715 105/71 36.6 C (97.9 F) -- 93 19 100 % -- -- 04/05/25 1703 119/80 -- -- 94 (!) 27 99 % -- -- 04/05/25 1645 128/80 -- -- 94 20 98 % -- -- 04/05/25 1630 127/79 -- -- 92 16 100 % -- -- 04/05/25 1615 127/83 -- -- (!) 120 17 98 % -- -- 04/05/25 1600 114/76 -- -- (!) 119 24 95 % -- -- 04/05/25 1545 121/84 -- -- (!) 118 15 97 % -- -- 04/05/25 1530 116/78 -- -- (!) 122 23 97 % -- -- 04/05/25 1515 125/86 -- -- (!) 118 16 99 % -- -- 04/05/25 1500 122/84 -- -- (!) 120 21 99 % -- -- 04/05/25 1445 130/86 -- -- (!) 115 22 100 % -- -- 04/05/25 1430 125/82 -- -- (!) 115 14 98 % -- -- 04/05/25 1415 127/81 -- -- (!) 117 17 99 % -- -- 04/05/25 1403 123/82 -- -- (!) 117 20 96 % -- -- 04/05/25 1358 -- -- -- (!) 113 17 95 % -- -- 04/05/25 1357 118/87 -- -- (!) 115 17 95 % -- -- 04/05/25 1351 97/66 36.6 C (97.9 F) -- 109 17 93 % -- -- 04/05/25 1344 97/66 -- -- 110 (!) 32 96 % -- -- 04/05/25 1330 131/83 -- -- (!) 115 18 97 % -- -- 04/05/25 1318 117/87 -- -- (!) 116 24 100 % -- -- 04/05/25 1230 128/82 -- -- (!) 115 15 98 % -- -- 04/05/25 1130 122/86 -- -- (!) 113 21 98 % -- -- 04/05/25 1100 131/86 -- -- (!) 117 24 97 % -- -- 04/05/25 1015 117/78 36.8 C (98.3 F) Oral (!) 118 15 98 % 1.778 m (5' 10") 66.7 kg (147 lb) Post-Dialysis Arterial Catheter Locking Solution: Not Applicable Venous Catheter Locking Solution: Not Applicable Post-Treatment Procedures: Blood returned, Access bleeding time < 10 minutes Machine Disinfection Process: Acid/Vinegar Clean, Heat Disinfect, Exterior Machine Disinfection Rinseback Volume (mL): 300 mL Total Liters Processed (L/min): 73 L/min Dialyzer Clearance: Clear Hemodialysis Intake (ml): 500 ml Hemodialysis Output (ml): 2500 ml NET Removed (ml): 2000 ml Tolerated Treatment: Good Patient Response to Treatment: stable Physician Notified: No Patient Disposition: Remain in ICU/ED Charge: $ IP Hemodialysis Charge: Hemodialysis Provider Notification Handoff complete and report given to Primary RN at 6630. Primary RN (First Initial, Last Name, Title): Jonathan Nunes Rn Education Person Educated: Patient Knowledge Base: Substantial Barriers to Learning?: None Preferred method of Learning: Oral Topic(s): emergency, Access Care, Signs and Symptoms of Infection, Fluid Management, and Procedural Teaching Tools: Explanation Response to Education: Verbalized Understanding [1] Allergies Allergen Reactions Lisinopril Swelling and Angioedema [2] Patient Active Problem List Diagnosis Anemia Paroxysmal A-fib ([facility]) ([facility]) HTN (hypertension) ESRD on hemodialysis ([facility]/HCC) (HCC) IgA nephropathy determined by biopsy of [...] failure with hypoxia (HCC) [J96.01] Tracheostomy care (HCC) [Z43.0] 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HCC) nursing home (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 Complication of tracheostomy (CMS/HCC) (HCC) BRBPR (bright red blood per rectum) Hemoptysis SOB (shortness of breath) Moderate malnutrition (CMS/HCC) (HCC) Shortness of breath [3] documented in this encounter [facility] 04-05-2025 Emergency department Note Dialysis at bedside. [facility] 04-05-2025 Emergency department Note Dialysis at bedside. Pt has no complaints at this time. This is my [facility]MIN supervisory and shared visit note: I, Stephan Villegas MD, personally evaluated/saw the patient and made/approve the management plan and take responsibility for the patient management. I performed a substantive portion of the physical examination, history and medical decision making. Appropriate PPE including n 95, gown, gloves, goggles where worn when appropriate with this patient. History: Patient went to dialysis his heart rate was fast so they sent him here for evaluation he had no physical complaints. Exam: . Heart is irregular slightly tachycardic. He is uniquely stable awake and alert lungs without significant rales or rhonchi MDM: EKG per my interpretation likely flutter tachycardic irregular this is not new. Per my interpretation. High-sensitivity troponin initially was 36 repeat is 28 potassium 5.5 creatinine is 3.52. No leukocytosis. I do not believe this is active ACS or PE. I think he can go home. Did set up dialysis. He was given 5 mg of Lopressor. Patient agrees to plan. Once he has dialysis he will go home. Do not believe this is active ACS or PE. Further details please see ARMIN note. Will give him additional 5 mg of Lopressor. INR is 2.6. Critical care time: I personally saw the patient and independently provided at least 35 minutes of non-concurrent critical care out of the total shared critical care time provided. Independent of any separately billable procedures. Comment: Please note this report has been produced using speech recognition software and may contain errors related to that system including errors in grammar, punctuation, and spelling, as well as words and phrases that may be inappropriate. If there is any questions or concerns please feel free to contact the dictating provider for clarification. Stephan Villegas MD 04/05/25 1436 Pt here to the ER via EMS from dialysis for tachycardia. Pt states he goes in and out of a-fib. Per EMS pt was given lopressor at dialysis. Pt states this RN "freaked out" and sent him in. Pt states his HR is high they let him sit and hook him up. Pt states this RN just wanted him out. Pt asking for ice when he got here. Informed pt that he needed to wait for the Dr. Pt stated just for a cup of ice? Pt asked again and this RN stated I would have to talk to the Dr. Pt stated , well go talk to the Dr then. This RN stated that needed to hook pt up and get vitals. documented in this encounter [facility] 04-05-2025 Miscellaneous Notes Formattin g of this note might be different from the original. Noted Spoke with patient's nurse from [facility]. Patient's nurse stated will need to cancel today's appointment. Nurse stated Patient was sent to [facility] for tachycardia. Nurse stated can not complete dialysis with patient's tachycardia. Nurse stated Sabino who scheduled appointments will call the office at a later time to reschedule patient's appointment. FYI to provider. documented in this encounter [facility] 04-05-2025 Telephone encount er Note Noted [facility] Work Phone: 04-05-2025 Emergency department Note Pt has no complaints at this time. [facility] 04-05-2025 Emergency department Triage note Pt here to the ER via EMS from dialysis for tachycardia. Pt states he goes in and out of a-fib. Per EMS pt was given lopressor at dialysis. Pt states this RN "freaked out" and sent him in. Pt states his HR is high they let him sit and hook him up. Pt states this RN just wanted him out. Pt asking for ice when he got here. Informed pt that he needed to wait for the Dr. Pt stated just for a cup of ice? Pt asked again and this RN stated I would have to talk to the Dr. Pt stated , well go talk to the Dr then. This RN stated that needed to hook pt up and get vitals. [facility] 04-05-2025 Physician Emergen cy department Note This is my ARMIN supervisory and shared visit note: I, Stephan Villegas MD, personally evaluated/saw the patient and made/approve the management plan and take responsibility for the patient management. I performed a substantive portion of the physical examination, history and medical decision making. Appropriate PPE including n 95, gown, gloves, goggles where worn when appropriate with this patient. History: Patient went to dialysis his heart rate was fast so they sent him here for evaluation he had no physical complaints. Exam: . Heart is irregular slightly tachycardic. He is uniquely stable awake and alert lungs without significant rales or rhonchi MDM: EKG per my interpretation likely flutter tachycardic irregular this is not new. Per my interpretation. High-sensitivity troponin initially was 36 repeat is 28 potassium 5.5 creatinine is 3.52. No leukocytosis. I do not believe this is active ACS or PE. I think he can go home. Did set up dialysis. He was given 5 mg of Lopressor. Patient agrees to plan. Once he has dialysis he will go home. Do not believe this is active ACS or PE. Further details please see ARMIN note. Will give him additional 5 mg of Lopressor. INR is 2.6. Critical care time: I personally saw the patient and independently provided at least 35 minutes of non-concurrent critical care out of the total shared critical care time provided. Independent of any separately billable procedures. Comment: Please note this report has been produced using speech recognition software and may contain errors related to that system including errors in grammar, punctuation, and spelling, as well as words and phrases that may be inappropriate. If there is any questions or concerns please feel free to contact the dictating provider for clarification. Stephan Villegas MD 04/05/25 1329 [facility] 04-05-2025 Telephone encount er Note Spoke with patient's nurse from [facility]. Patient's nurse stated will need to cancel today's appointment. Nurse stated Patient was sent to [facility] for tachycardia. Nurse stated can not complete dialysis with patient's tachycardia. Nurse stated Sabino who scheduled appointments will call the office at a later time to reschedule patient's appointment. FYI to provider. [facility] 03-26-2025 Telephone encount er Note 3rd attempt unable to speak to Sabino she's not in the office at them moment. Left message to call the office back to schedule [facility] 03-26-2025 Miscellaneous Notes Formattin g of this note might be different from the original. 3rd attempt unable to speak to Sabino she's not in the office at them moment. Left message to call the office back to schedule 2nd attempt called and spoke to the [...] this? Thank you documented in this encounter [facility] 03-26-2025 Telephone encount er Note Sabino has been notified the visit can not be virtual [facility] 03-26-2025 Miscellaneous Notes Formattin g of this note might be different from the original. Sabnio has been notified the visit can not be virtual Name of Caller: Bobbi Delvalle [place] Contact Reason for Appointment: Change 04/05/25 hospital follow up to a vv. Please call and advise. Office Name: [facility] Neurology [place] documented in this encounter [facility] 03-26-2025 Telephone encount er Note Name of Caller: Bobbi Delvalle [place] Contact Reason for Appointment: Change 04/05/25 hospital follow up to a vv. Please call and advise. Office Name: [facility] Neurology [place] [facility] 03-21-2025 Nurse Note Educated pt on importance of prescribed medications. Pt still refused. [facility] 03-21-2025 Nurse Note Educated pt on importance of prescribed medications. Pt still refused. Patient Name: Jun Snyder Patient : 1965 Acct: [id number] Date of Admission: 03/13/2025 [facility] [...] - Before each treatment: Dialysis Machine No.: [id number] RO Machine Number: [id number] Dialyzer Lot No.: [id number] Tubing Lot Number: [id number] All Connections Secure: Yes Venous Parameters Set: Yes Arterial Parameters Set: Yes NS Bag: Yes Saline Line Double Clamped: Yes Dialyzer: Nipro Prime Volume (mL): 200 mL RO Machine Number: [id number] RO Machine Log Sheet Completed: Yes Machine Alarm Self Test: Completed, Passed (03/20/25 1145) Air Foam Detector: Tested, Proper Function, pH Reading Extracorporeal Circuit Tested for Integrity: Yes Machine Conductivity: 13.8 Manual Conductivity: 13.8 Manual Ph: 7 Bleach Test (Neg): Yes Bath Temperature: 36 C (96.8 F) Conductivity Meter Serial #: [id number] Machine Functioning Alarm Free? 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 Black foam dressing removed and wound packed with saline-soaked gauze covered with DSD Pt adamantly refusing telemetry at this time, ripped off monitor and threw to the floor Patient Name: Jun Snyder Patient : 1965 Acct: [id number] Date of Admission: 03/13/2025 [facility] [...] Title): Malick Henry Incapacitated Nurse Education Completed: marcelino HBsAg ONLY: [...] WBC 6.7 03/17/2025 0047 HGB 10.0 (L) 03/17/202546 HGB 11.8 (L) 03/13/2025 0902 HCT 33.8 (L) 03/17/202546 PLT 407 03/17/202546 NA 141 03/17/202546 K 3.9 03/17/202546 CL 104 03/17/202546 CO2 25 03/17/202546 BUN 22 03/17/202546 CREATININE 3.25 (H) 03/17/202546 CREATININE 9.99 (H) 10/27/2019544 CALCIUM 9.6 03/17/202546 PHOS 2.6 02/23/202531 IV Drips and Rate/Dose Continuous Meds[3] Safety - Before each treatment: Dialysis Machine No.: [id number] RO Machine Number: [id number] Dialyzer Lot No.: [id number] Tubing Lot Number: [id number] All Connections Secure: Yes Venous Parameters Set: Yes Arterial Parameters Set: Yes NS Bag: Yes Saline Line Double Clamped: Yes Dialyzer: Nipro Prime Volume (mL): 200 mL RO Machine Number: [id number] RO Machine Log Sheet Completed: Yes Machine Alarm Self Test: Completed, Passed (03/17/25802) Air Foam Detector: Tested, Proper Function, pH Reading Extracorporeal Circuit Tested for Integrity: Yes Machine Conductivity: 13.6 Manual Conductivity: 13.6 Manual Ph: 7 Bleach Test (Neg): Yes Bath Temperature: 36 C (96.8 F) Conductivity Meter Serial #: [id number] Machine Functioning Alarm Free? Yes Dialysis Bath: [...] Other (Comment) (to inform patient arrival from [place] emergency room and need for orders) Provider [...] Active Problem List Diagnosis Anemia Paroxysmal A-fib ([facility]) ([facility]) HTN (hypertension) ESRD on hemodialysis ([facility]) ([facility]) IgA nephropathy determined by biopsy of kidney Diverticulosis Nonrheumatic aortic valve stenosis Calcification of abdominal aorta ([facility]) Missed vaccination due to patient refusal Tobacco abuse Alcohol use disorder in remission Atrial flutter, unspecified type ([facility]) RSV (acute bronchiolitis due to respiratory [...] (CMS/HCC) (HCC) Acute respiratory failure with hypoxia ([facility]) [J96.01] Tracheostomy care ([facility]) [Z43.0] 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[facility]) 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 Complication of tracheostomy (CMS/HCC) ([facility]) BRBPR (bright red blood per rectum) Hemoptysis SOB (shortness of breath) Moderate malnutrition (CMS/HCC) ([facility]) [3] heparin, 5-30 Units/kg/hr Patient Name: Jun Snyder Patient : 1965 Acct: [id number] Date of Admission: 03/13/2025 [facility] [...] - Before each treatment: Dialysis Machine No.: [id number] RO Machine Number: [id number] Dialyzer Lot No.: [id number] Tubing Lot Number: [id number] All Connections Secure: Yes Venous Parameters Set: Yes Arterial Parameters Set: Yes NS Bag: Yes Saline Line Double Clamped: Yes Dialyzer: Nipro Prime Volume (mL): 200 mL RO Machine Number: [id number] RO Machine Log Sheet Completed: Yes Machine Alarm Self Test: Completed, Passed (03/15/25 1215) Air Foam Detector: Tested, Proper Function, pH Reading Extracorporeal Circuit Tested for Integrity: Yes Machine Conductivity: 13.8 Manual Conductivity: 13.7 Manual Ph: 7 Bleach Test (Neg): Yes Bath Temperature: 36 C (96.8 F) Conductivity Meter Serial #: [id number] Machine Functioning Alarm Free? Yes Dialysis Bath: [...] Other (Comment) (to inform patient arrival from [place] emergency room and need for orders) Provider Name: dr sanon Provider Role: Attending physician Method of Communication: Secure chat Response: At bedside Provider Role: Attending physician Method of Communication: Secure chat Response: At bedside Handoff complete and report given to Primary RN at 1546. Primary RN (First Initial, Last Name, Title): [...] Staphylococcus aureus (MSSA) (HCC) Sacral osteomyelitis (CMS/HCC) ([facility]) Acute respiratory failure with hypoxia ([facility]) [J96.01] Tracheostomy care ([facility]) [Z43.0] 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[facility]) nursing home (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 Complication of tracheostomy (CMS/HCC) (HCC) BRBPR (bright red blood per rectum) Hemoptysis SOB (shortness of breath) Moderate malnutrition (CMS/HCC) ([facility]) [3] Wound Care consulted for Pressure Injury Prevention. Pt's Kee score= 14 on 03/13 Pt's pressure points assessed. Pt's Heels, Back, Elbows, Occiput and ears all intact. [place] and healed area noted to occiput. Pt moving lower extremities well in bed against gravity. Pt currently followed by Wound MECHANICAL TEST TECHNICIAN group for wounds to left toes 1-4 and sacrum with wound vac in place. For left toes, sacrum, and sacral wound vac assessments and treatment plan, please see Wound/Ostomy MECHANICAL TEST TECHNICIAN progress notes. Instructed pt on pressure injury prevention and importance of turning/postioning every 2hrs while in bed and every 15 min while sitting in chair. Instructed on use and care of waffle chair cushion. Verbalized understanding. Prevention Measures in place, including: [place] sheet with pillows/wedges, Heels elevated off bed on pillows, Zinc/Moisture Barrier ointment (obtained), Waffle chair cushion (obtained for pt). Skin Care precaution order set in place. Dietitian consult order placed d/t wounds. PT/OT consult in place. Will continue to follow pt. Please Vocera for any questions or concerns. Yari Pelletier RN Patient Name: Jun Snyder Patient : 1965 Acct: [id number] Date of Admission: 03/13/2025 [facility] [...] - Before each treatment: Dialysis Machine No.: [id number] RO Machine Number: [id number] Dialyzer Lot No.: [id number] Tubing Lot Number: [id number] All Connections Secure: Yes Venous Parameters Set: Yes Arterial Parameters Set: Yes NS Bag: Yes Saline Line Double Clamped: Yes Dialyzer: Nipro Prime Volume (mL): 200 mL RO Machine Number: [id number] RO Machine Log Sheet Completed: Yes Machine Alarm Self Test: Completed, Passed (03/14/25 4855) Air Foam Detector: Tested, Proper Function, pH Reading Extracorporeal Circuit Tested for Integrity: Yes Machine Conductivity: 13.7 Manual Conductivity: 13.6 Manual Ph: 7 Bleach Test (Neg): Yes Bath Temperature: 36 C (96.8 F) Conductivity Meter Serial #: [id number] Machine Functioning Alarm Free? Yes Dialysis Bath: K+ (Potassium): 3 Ca+ (Calcium): 2.5 Na+ (Sodium): 135 HCO3 (Bicarb): 35 Chlorine Testing - Before each treatment and every 4 hours: Time On: 1237 Time Off: 1537 Treatment Goal: 1L Weight Height: 177.8 cm (5' 10") (03/13/25 1654) Weight: 66.8 kg (147 lb 3.2 oz) (03/14/25 032) BMI (Calculated): 21.12 (03/14/25322) 1st check: less [...] Other (Comment) (to inform patient arrival from [place] emergency room and need for orders) Provider [...] Active Problem List Diagnosis Anemia Paroxysmal A-fib ([facility]) ([facility]) HTN (hypertension) ESRD on hemodialysis ([facility]) ([facility]) IgA nephropathy determined by biopsy of kidney Diverticulosis Nonrheumatic aortic valve stenosis Calcification of abdominal aorta ([facility]) Missed vaccination due to patient refusal Tobacco abuse Alcohol use disorder in remission Atrial flutter, unspecified type ([facility]) RSV (acute bronchiolitis due to respiratory syncytial virus) Aortic stenosis Upper GI bleed S/P AVR Acute hypoxic respiratory failure ([facility]) Acute encephalopathy Pneumoperitoneum Gastric ulceration Severe malnutrition ([facility]) ([facility]) Pleural effusion Peritonitis due to fungus ([facility]) History of abdominal surgery Leg DVT (deep venous thromboembolism), acute, left ([facility]) 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, 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 of skin ([facility]) Tracheostomy dependence ([facility]) Leukocytosis Decubitus ulcer of sacral region, unstageable ([facility]) Pneumonia of both lungs due to methicillin susceptible Staphylococcus aureus (MSSA) ([facility]) Sacral osteomyelitis ([facility]) ([facility] Acute respiratory failure with hypoxia ([facility]) [J96.01] Tracheostomy care ([facility]) [Z43.0] 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[facility]) nursing home (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 Complication of tracheostomy ([facility]) ([facility]) BRBPR (bright red blood per rectum) Hemoptysis SOB (shortness of breath) [3] Removed wound vac that patient arrived to 5w from f pictures of all wound taken on rover and saved to chart NSWto DSD applied to sacral wound documented in this encounter [facility] 03-21-2025 Note Formatting of this n ote might be different from the original. MAR, Labs & Discharge med list transmitted to [facility] via [employer] per TCC request. [facility] 03-21-2025 Note Formatting of this n ote might be different from the original. MAR, Labs & Discharge med list transmitted to [facility] via [employer] per TCC request. [facility] 03-21-2025 Miscellaneous Notes Formattin g of this note might be different from the original. MAR, Labs & Discharge med list transmitted to [facility] via [employer] per TCC request. Transport requested in Roundtrip. Awaiting time confirmation. Confirmed pickup time of 5:00PM by transport company [employer] at phone number . Location of facility drop off is [facility]. Facility notified via [employer], Kaity [facility]ough[facility] notified on secure chat. Care Management Progress Note Short Medical why still here: Heparin gtt stopped today. . INR 2.9 today. Getting Coumadin. Refusing to work with therapy. They would like to skill him if able. Planned Discharge Disposition: Correction/Residential Care Barriers/Today we still Wait: Administering IV [...] Coumadin. INR 1.9 today Planned Discharge Disposition: Correction/Residential Care Barriers/Today we still Wait: Clinical stability [...] When stable plan is to return to [facility].. . Length of Stay (Days): 6 GMLOS: [...] for gangrenous toes. Anticipate discharge back to [facility] soon. . Length of Stay (Days): 3 [...] When stable is a bed hold at [facility]. . Length of Stay (Days): 2 GMLOS: [...] therapies are following. Wants to return to [facility]. Is a bed hold, but if they can skill him they would like to.. Length of Stay (Days): 1 GMLOS: No GMLOS Documented Referral placed to [facility] via [facility] per [facility] request. Await review and response regarding ability to accept. TCC notified. Problem: Knowledge Deficit Goal: Patient/family/caregiver demonstrates understanding of disease process, treatment plan, medications, and discharge instructions Outcome: Progressing Problem: Potential for Compromised Skin Integrity Goal: Skin Integrity is Maintained or Improved Outcome: Progressing documented in this encounter [facility] 03-21-2025 Note Formatting of this n ote might be different from the original. Transport requested in Roundtrip. Awaiting time confirmation. Confirmed pickup time of 5:00PM by transport [employer] at phone number . Location of facility drop off is [facility]. Facility notified via [employer] notified on secure chat. [facility] 03-21-2025 Note Formatting of this n ote might be different from the original. Transport requested in [employer]trip. Awaiting time confirmation. Confirmed pickup time of 5:00PM by transport company [employer] at phone number . Location of facility drop off is [facility]. Facility notified via [employer] notified on secure chat. [facility] 03-21-2025 Note [facility] 03-21-2025 Hospital course Narrative Discharge Summary Jun Snyder : 1965 ADMIT DATE: 03/13/2025 DISCHARGE DATE: 03/21/2025 PRIMARY CARE PHYSICIAN: Leilani Han VISIT STATUS: Admission CODE STATUS: Full Code [...] Klebsiella pneumonia with lung abscess presented to [facility] with worsening shortness of breath. He [...] Complexity: follow up within 7-14 calendar days (99070) [x] Severe Complexity: follow up within 7 calendar days (43057) FOLLOW UP TESTING, PENDING RESULTS OR REFERRALS AT TRANSITIONAL CARE VISIT: [] Yes [x] No PENDING STUDIES: None DISPOSITION: [facility] (Non-Skilled) FACILITY/HOME CARE AGENCY NAME: [facility] Follow up with Leilani Han [address] [place] [address] Follow up INSTRUCTIONS TO MA/SW: Please [...] 03/21/2025, 12:07 PM documented in this encounter [facility] 03-21-2025 History of Presen t illness Narrative Patient quit smoking in September. Accepting of handout with contact information for additional support to remain quit if neccesary. Hospitalist Progress Note Subjective: Admit Date: 03/13/2025 PCP: Leilani Han Room#: [id number] A Chief complaint: Shortness of breath Brief Hospital course: Jun is a 59 y.o. male with past medical history of hypertension, IgA nephropathy, ESRD on HD, CAD, history of CABG, history of intracranial bleed, paroxysmal A-fib aortic stenosis, s/p mechanical valve replacement recent admission here from 02/20-03/05 for hemoptysis due to Klebsiella pneumonia with lung abscess presented to [facility] with worsening shortness of breath. He [...] Intake/Output Summary (Last 24 hours) at 03/21/2025 0939 Last data filed at 03/20/2025 1523 Gross per 24 hour Intake 300 ml Output -- Net 300 ml LABS: CBC: Recent Labs 03/19/25 0752 03/20/25 0548 03/21/25 06 WBC 7.8 8.1 8.0 RBC 2.98* 3.00* [...] Labs 03/19/25 0752 03/20/25 0548 03/21/25 0624 AST 52* 46* 59* ALT 14 13 13 BILITOT 0.9 0.8 0.9 ALKPHOS 221* 194* 217* PROT 7.4 7.3 7.2 PT/INR: Recent Labs 03/19/25 0752 03/20/25 0548 03/21/25 0624 PROTIME 17.0* 19.1* 29.0* INR 1.6* 1.9* [...] MD Division of Hospital Medicine Inpatient Medical Services/[facility] [1] Past Medical History: Diagnosis Date Acute renal failure (ARF) (HCC) 10/19/2019 Anemia 12/30/2021 Calcification of abdominal aorta (HCC) 10/08/202309/[address] abd Diverticulosis 10/08/2023 ESRD [place] hemodialysis [place] ([facility]) 10/26/2019 Hemodialysis patient [place] ([facility]) HTN (hypertension) 12/01/2022 Hypertension IgA nephropathy IgA nephropathy determined by biopsy of kidney 10/26/2019 Missed vaccination due to patient refusal 10/08/2023 Has a number of non-scientific based beliefs which interfere with his understanding and acceptance of the medical benefit of vaccination. Nonrheumatic aortic valve stenosis 10/08/2023 Paroxysmal A-fib ([facility] ([facility]) 08/18/2023 Tobacco abuse 10/08/2023 [2] Lidocaine, [...] History: Diagnosis Date Acute renal failure (ARF) ([facility]) 10/19/2019 Anemia 12/30/2021 Calcification of abdominal aorta ([facility]) 10/08/202309/[address] abd Diverticulosis 10/08/2023 ESRD on hemodialysis [place] ([facility]) 10/26/2019 Hemodialysis patient [place] ([facility]) HTN (hypertension) 12/01/2022 Hypertension IgA nephropathy IgA nephropathy determined by biopsy of kidney 10/26/2019 Missed vaccination due to patient refusal 10/08/2023 Has a number of non-scientific based beliefs which interfere with his understanding and acceptance of the medical benefit of vaccination. Nonrheumatic aortic valve stenosis 10/08/2023 Paroxysmal A-fib ([facility] ([facility]) 08/18/2023 Tobacco abuse 10/08/2023 Images from the original note were not included. PHYSICAL THERAPY [facility] Name/MRN: Jair Snyder ([id number]) Date: 03/21/2025 Chart review completed this date. [...] re-attempt another time/date as schedule permits. Cecy Pierre, MEDICAL SPECIALIST Cosigned by Darryn Tay, PT at 03/21/2025 2:58 PM EDT [facility] Anticoagulation Management Service ([facility]) Inpatient [...] 03/21 2.9 4mg 03/20 1.9 7.5 mg 6/23 1.6 7.5 mg 03/18 1.5 5 mg 03/17 1.5 5 mg 03/16 1.7 2.5 mg 03/15 1.7 2.5 mg 03/14 --- 1.5 mg 03/13 1.7 3 mg Assessment/Plan: 1. Therapeutic INR but with large increase overnight, so will reduce warfarin dose to 4mg today. 2. Monitor for s/s of bleeding and drug interactions. Will adjust dose accordingly. 3. Warfarin is followed by [facility] outpatient. [facility] will manage inpatient and take over management once discharged from [facility]. Fatuma Odonnell RPh, PharmD [facility] is available daily [phone] via [employer]. If no response on [employer] then please page [phone]. [1] Past Medical History: Diagnosis Date Acute renal failure (ARF) [facility] [facility] 10/19/2019 Anemia 12/30/2021 Calcification of abdominal aorta ([facility]) 10/08/202309/[address] abd Diverticulosis 10/08/2023 ESRD on hemodialysis ([facility]) ([facility]) 10/26/2019 [place]) HTN (hypertension) 12/01/2022 Hypertension IgA nephropathy IgA nephropathy determined by biopsy of kidney 10/26/2019 Missed vaccination due to patient refusal 10/08/2023 Has a number of non-scientific based beliefs which interfere with his understanding and acceptance of the medical benefit of vaccination. Nonrheumatic aortic valve stenosis 10/08/2023 Paroxysmal A-fib ([facility]) ([facility]) 08/18/2023 Tobacco abuse 10/08/2023 Nutrition Assessment [...] Klebsiella pneumonia with lung abscess presented to [facility] with worsening shortness of breath. He [...] 101 Net IO Since Admission: 3,307.87 mL [03/20/251752] Intake/Output Summary (Last 24 hours) at 03/20/2025 175 Last data filed at 03/20/2025 1523 Gross per 24 hour Intake 1338.87 ml Output -- Net 1338.87 ml Labs/Meds Reviewed: Scheduled Meds[1] Continuous Meds[2] BMP: Recent Labs 03/18/25 0159 03/19/25 0752 03/20/25 0548 NA 139 137 136 K 3.4* 4.0 5.3* CL 100 102 102 CO2 29 27 24 BUN 16 24* 32* CREATININE 2.64* 3.67* 4.28* GLUCOSE 73* 85 91 CALCIUM 9.0 9.0 9.1 MG 1.9 1.9 2.0 HEPATIC: Recent Labs 03/18/25 0159 03/19/25 0752 03/20/25 0548 AST 50* 52* 46* ALT 11 14 13 BILITOT 0.8 0.9 0.8 ALKPHOS 241* 221* 194* Current Nutrition Therapies: Adult diet Regular; Low Sodium (2 gm) Current Oral Intake Average Meal Intake: 76-100%, 51-75% Average Supplements Intake: 51-75%, 76-100% Dietary Orders (From admission, onward) Start Ordered 03/14/251800 Supplement:Breakfast, Dinner; Chocolate Ensure Plus High Protein Until discontinued Question Answer Comment Frequency Breakfast Frequency Dinner Select supplement: Chocolate Ensure Plus High Protein 03/14/25 18003/13/251742 Adult diet Regular; Low Sodium (2 gm) Diet effective now Question Answer Comment Diet type Regular Sodium restriction: Low Sodium (2 gm) 03/13/251745 Anthropometric Measures: Height: 177.8 cm (5' 10") Current Body Weight: 69.4 kg (153 lb) Weight Source: Standing Scale Admission Body Weight: 67.1 kg (148 lb) (no method) Usual Body Weight: 93.4 kg (206 lb) (Aug 2024) % Weight Change (Calculated): -28.6 [place] Body Weight (lbs) (Calculated): 166 lbs [place] Body Weight (Kg) (Calculated): 75 kg % [place] Body Weight (Calculated): 88.6 % BMI (kg/m2) [...] Discharge Planning: Too soon to determine Yasemin Jonescheco MS, RD, LD Contact: or [employer] Chat (dial [phone] from hospital phone) [1] Lidocaine, 1 patch, Topical, Daily metoprolol tartrate, 50 mg, Oral, BID pantoprazole, 40 mg, Oral, BID AC sevelamer carbonate, 800 mg, Oral, TID WC sodium zirconium cyclosilicate, 5 g, Oral, Daily [2] heparin, 5-30 Units/kg/hr, Last Rate: 20 Units/kg/hr (03/20/25 1353) [facility] Anticoagulation Management Service ([facility]) Inpatient [...] candidate 2025, staffed with Fatuma Odonnell PharmD, [facility] is available daily [phone] via [employer]. If no response on [employer] then please page [phone]. [1] Past Medical History: Diagnosis Date Acute renal failure (ARF) ([facility]) 10/19/2019 Anemia 12/30/2021 Calcification of abdominal aorta ([facility]) 10/08/202309/[address] abd Diverticulosis 10/08/2023 ESRD [place] hemodialysis [place]) 10/26/2019 Hemodialysis patient [place] ([facility]) HTN (hypertension) 12/01/2022 Hypertension IgA nephropathy IgA nephropathy determined by biopsy of kidney 10/26/2019 Missed vaccination due to patient refusal 10/08/2023 Has a number of non-scientific based beliefs which interfere with his understanding and acceptance of the medical benefit of vaccination. Nonrheumatic aortic valve stenosis 10/08/2023 Paroxysmal A-fib ([facility] ([facility]) 08/18/2023 Tobacco abuse 10/08/2023 Cosigned by Fatuma Odonnell RPh at 03/20/2025 10:38 AM EDT Hospitalist Progress Note Subjective: Admit Date: 03/13/2025 PCP: Leilani Han Room#: [id number] A Chief complaint: Shortness of breath Brief Hospital course: Jun is a 59 y.o. male with past medical history of hypertension, IgA nephropathy, ESRD on HD, CAD, history of CABG, history of intracranial bleed, paroxysmal A-fib aortic stenosis, s/p mechanical valve replacement recent admission here from 02/20-03/05 for hemoptysis due to Klebsiella pneumonia with lung abscess presented to [facility] ED with worsening shortness of breath. He [...] Net 1038.87 ml LABS: CBC: Recent Labs 03/18/2515803/19/25 07503/20/25 0548 WBC 7.6 7.8 8.1 RBC 3.03* 2.98* 3.00* HGB 9.1* 8.9* 9.2* HCT 30.4* 30.4* 30.3* MCV 100.3* 102.0* 101.0* RDW 20.6* 20.8* 20.2* PLT 333 320 308 BMP: Recent Labs 03/18/2515803/19/25 0752 03/20/25 0548 NA 139 137 136 K 3.4* 4.0 5.3* CL 100 102 102 CO2 29 27 24 BUN 16 24* 32* CREATININE 2.64* 3.67* 4.28* GLUCOSE 73* 85 91 CALCIUM 9.0 9.0 9.1 ANIONGAP 10 8 10 LIVER PROFILE: Recent Labs 03/18/2515803/19/25 0752 03/20/25 0548 AST 50* 52* 46* ALT 11 14 13 BILITOT 0.8 0.9 0.8 ALKPHOS 241* 221* 194* PROT 7.3 7.4 7.3 PT/INR: Recent Labs 03/18/2515803/19/25 0752 03/20/25 0548 PROTIME 15.2* 17.0* 19.1* [...] MD Division of Hospital Medicine Inpatient Medical Services/[facility] [1] Past Medical History: Diagnosis Date Acute renal failure (ARF) ([facility]) 10/19/2019 Anemia 12/30/2021 Calcification of abdominal aorta ([facility]) 10/08/202309/[address] abd Diverticulosis 10/08/2023 ESRD on hemodialysis ([facility]) ([facility]) 10/26/2019 Hemodialysis [place]) HTN (hypertension) 12/01/2022 Hypertension IgA nephropathy IgA nephropathy determined by biopsy of kidney 10/26/2019 Missed vaccination due to patient refusal 10/08/2023 Has a number of non-scientific based beliefs which interfere with his understanding and acceptance of the medical benefit of vaccination. Nonrheumatic aortic valve stenosis 10/08/2023 Paroxysmal A-fib ([facility]) ([facility]) 08/18/2023 Tobacco abuse 10/08/2023 [2] Lidocaine, [...] History: Diagnosis Date Acute renal failure (ARF) ([facility]) 10/19/2019 Anemia 12/30/2021 Calcification of abdominal aorta ([facility]) 10/08/202309/[address] abd Diverticulosis 10/08/2023 ESRD [place] hemodialysis [place] ([facility]) 10/26/2019 Hemodialysis patient [place] ([facility]) HTN (hypertension) 12/01/2022 Hypertension IgA nephropathy IgA nephropathy determined by biopsy of kidney 10/26/2019 Missed vaccination due to patient refusal 10/08/2023 Has a number of non-scientific based beliefs which interfere with his understanding and acceptance of the medical benefit of vaccination. Nonrheumatic aortic valve stenosis 10/08/2023 Paroxysmal A-fib ([facility]) ([facility]) 08/18/2023 Tobacco abuse 10/08/2023 [facility] Anticoagulation Management Service ([facility]) Inpatient [...] 3. Warfarin is followed by SNF outpatient. [facility] will manage inpatient and take over management once discharged from SNF. Laura BenítezD candidate 2025, staffed with Fatuma Odonnell PharmD, [facility] is available daily [phone] via [employer]. If no response on [employer] Chat then please page [phone]. [1] Past Medical History: Diagnosis Date Acute renal failure (ARF) ([facility]) 10/19/2019 Anemia 12/30/2021 Calcification of abdominal aorta ([facility]) 10/08/202309/[address] abd Diverticulosis 10/08/2023 ESRD [place] hemodialysis [place] ([facility]) 10/26/2019 Hemodialysis patient [place] ([facility]) HTN (hypertension) 12/01/2022 Hypertension IgA nephropathy IgA nephropathy determined by biopsy of kidney 10/26/2019 Missed vaccination due to patient refusal 10/08/2023 Has a number of non-scientific based beliefs which interfere with his understanding and acceptance of the medical benefit of vaccination. Nonrheumatic aortic valve stenosis 10/08/2023 Paroxysmal A-fib ([facility]) ([facility]) 08/18/2023 Tobacco abuse 10/08/2023 Cosigned by Fatuma Odonnell RPh at 03/19/2025 2:39 PM EDT Images from the original note were not included. [facility] Wound Care/NPWT Progress Note Jun Snyder AGE: [...] to follow Recommend to follow up at [facility] wound care center after hospital discharge. Any [...] History: Diagnosis Date Acute renal failure (ARF) ([facility]) 10/19/2019 Anemia 12/30/2021 Calcification of abdominal aorta ([facility]) 10/08/202309/[address] abd Diverticulosis 10/08/2023 ESRD [place] hemodialysis [place] ([facility]) 10/26/2019 Hemodialysis patient [place] ([facility]) HTN (hypertension) 12/01/2022 Hypertension IgA nephropathy IgA nephropathy determined by biopsy of kidney 10/26/2019 Missed vaccination due to patient refusal 10/08/2023 Has a number of non-scientific based beliefs which interfere with his understanding and acceptance of the medical benefit of vaccination. Nonrheumatic aortic valve stenosis 10/08/2023 Paroxysmal A-fib ([facility]) ([facility]) 08/18/2023 Tobacco abuse 10/08/2023 [2] Past Surgical History: Procedure Laterality Date APPENDECTOMY CARDIAC CATHETERIZATION N/A 10/09/2024 Performed by Bob Watson MD at [facility] Cardiac Cath/EP Lab CARDIAC CATHETERIZATION Bilateral 11/01/2024 Performed by Bob Watson MD at [facility] Cardiac Cath/EP Lab CARDIAC CATHETERIZATION N/A 11/01/2024 Performed by Bob Watson MD at [facility] Cardiac Cath/EP Lab COLONOSCOPY N/A 01/24/2025 Performed by Chadd Davis MD at [facility] ENDOSCOPY FISTULAGRAM (HISTORICAL) Left 09/15/2021 LEFT UPPER ARM HX AV FISTULA CREATION IR EMBOLIZATION 10/14/2024 IR EMBOLIZATION 10/14/2024 [facility] SPECIAL PROCEDURES IR FISTULAGRAM 08/07/2022 IR [...] Note Subjective: Admit Date: 03/13/2025 PCP: Leilani Han Room#: [id number] A Chief Complaint Patient presents with Shortness of Breath [facility]. Pt was starting dialysis and [...] Klebsiella pneumonia with lung abscess presented to [facility] ED with worsening shortness of breath. He [...] in upper abdomen He was transferred from [facility] to [facility] due to bed availability Nephrology consulted, seen [...] Net 200 ml LABS: CBC: Recent Labs 03/17/25 0047 03/18/25 0159 03/19/25 0752 WBC 6.7 7.6 7.8 RBC 3.31* 3.03* 2.98* HGB 10.0* 9.1* 8.9* HCT 33.8* 30.4* 30.4* MCV 102.1* 100.3* 102.0* RDW 21.2* 20.6* 20.8* PLT 407 333 320 BMP: Recent Labs 03/17/25 4603/18/2515803/19/25 075 NA 141 139 137 K 3.9 3.4* 4.0 CL 104 100 102 CO2 25 29 27 BUN 22 16 24* CREATININE 3.25* 2.64* 3.67* GLUCOSE 87 73* 85 CALCIUM 9.6 9.0 9.0 ANIONGAP 12 10 8 LIVER PROFILE: Recent Labs 03/17/254603/18/2515803/19/25751 AST 54* 50* 52* ALT 15 11 14 BILITOT 0.9 0.8 0.9 ALKPHOS 223* 241* 221* PROT 8.0 7.3 7.4 PT/INR: Recent Labs 03/17/254603/18/2515803/19/25 075 PROTIME 16.0* 15.2* 17.0* INR 1.5* 1.5* [...] Location -SNF - Pending the following -clinical course, subtherapeutic INR, on bridging with heparin drip Total time spent (which include face to face and non face to face encounters) : 38.5 minutes Extended Emergency Contact Information Primary Emergency Contact: Omar Snyder Mobile Relation: Child Secondary Emergency Contact: TarunToma Mobile Relation: Partner Barb Dawkins MD Division of Hospital Medicine Inpatient Medical Services/[facility] [1] Past Medical History: Diagnosis Date Acute renal failure (ARF) ([facility]) 10/19/2019 Anemia 12/30/2021 Calcification of abdominal aorta ([facility]) 10/08/202309/[address] abd Diverticulosis 10/08/2023 [place]D [place]ialysis [place]) 10/26/2019 Hemodialysis patient [place] ([facility]) HTN (hypertension) 12/01/2022 Hypertension IgA nephropathy IgA nephropathy determined by biopsy of kidney 10/26/2019 Missed vaccination due to patient refusal 10/08/2023 Has a number of non-scientific based beliefs which interfere with his understanding and acceptance of the medical benefit of vaccination. Nonrheumatic aortic valve stenosis 10/08/2023 Paroxysmal A-fib [place] ([facility]) 08/18/2023 Tobacco abuse 10/08/2023 [2] Lidocaine, [...] History: Diagnosis Date Acute renal failure (ARF) ([facility]) 10/19/2019 Anemia 12/30/2021 Calcification of abdominal aorta ([facility]) 10/08/202309/[address] abd Diverticulosis 10/08/2023 [place]D [place] hemodialysis [place] ([facility]) 10/26/2019 Hemodialysis patient [place] ([facility]) HTN (hypertension) 12/01/2022 Hypertension IgA nephropathy IgA nephropathy determined by biopsy of kidney 10/26/2019 Missed vaccination due to patient refusal 10/08/2023 Has a number of non-scientific based beliefs which interfere with his understanding and acceptance of the medical benefit of vaccination. Nonrheumatic aortic valve stenosis 10/08/2023 Paroxysmal A-fib [place] ([facility]) 08/18/2023 Tobacco abuse 10/08/2023 Nephrology Progress [...] sacral wound. Wellington Nicole MD' Please call [phone] or message me through [employer] with any questions or concerns. Nephrology Progress [...] 03/18/2025 0814 Last data filed at 03/17/2025 1948 Gross per 24 hour Intake 420 ml Output 100 ml Net 320 ml Physical exam: Constitutional: NAD Neck: no bruits or jvd noted Cardiovascular: Normal S1, S2 without m/r/g Respiratory: CTAB without w/r/r Abdomen: +bs, soft, nt, nd Ext: no lower extremity edema Data: Labs: Recent Labs 03/16/2515403/17/25 0047 03/18/25 015 WBC 7.0 6.7 7.6 HGB 9.1* 10.0* 9.1* HCT 30.2* 33.8* 30.4* MCV 100.0* 102.1* 100.3* PLT 372 407 333 Recent Labs 03/16/25 01503/17/25 0047 03/18/25 015 NA 139 141 139 K [...] sacral wound. Wellington Nicole MD' Please call [phone] or message me through [employer] with any questions or concerns. Hospitalist Progress Note Subjective: Admit Date: 03/13/2025 PCP: Leilani Han Room#: [id number] A Chief Complaint Patient presents with Shortness of Breath Pt [facility]. Pt was starting dialysis and [...] Klebsiella pneumonia with lung abscess presented to [facility] ED with worsening shortness of breath. He [...] in upper abdomen He was transferred from [facility] to [facility] due to bed availability Nephrology consulted, seen [...] Intake/Output Summary (Last 24 hours) at 03/18/2025 0753 Last data filed at 03/17/2025 1948 Gross per 24 hour Intake 520 ml Output 100 ml Net 420 ml LABS: CBC: Recent Labs 03/16/2515403/17/25 0047 03/18/25 015 WBC 7.0 6.7 7.6 RBC 3.02* 3.31* 3.03* HGB 9.1* 10.0* 9.1* HCT 30.2* 33.8* 30.4* MCV 100.0* 102.1* 100.3* RDW 21.2* 21.2* 20.6* PLT 372 407 333 BMP: Recent Labs 03/16/2515403/17/25 0047 03/18/25 015 NA 139 141 139 K 4.1 3.9 3.4* CL 104 104 100 CO2 26 25 29 BUN 18 22 16 CREATININE 2.35* 3.25* 2.64* GLUCOSE 83 87 73* CALCIUM 9.1 9.6 9.0 ANIONGAP 9 12 10 LIVER PROFILE: Recent Labs 03/16/25 0155 03/17/25 0047 03/18/25158 AST 47* 54* 50* ALT 13 15 11 BILITOT 0.9 0.9 0.8 ALKPHOS 194* 223* 241* PROT 7.3 8.0 7.3 PT/INR: Recent Labs 03/16/25 01503/17/257 03/18/25158 PROTIME 17.3* 16.0* 15.2* INR 1.7* 1.5* [...] MD Division of Hospital Medicine Inpatient Medical Services/[facility] [1] Past Medical History: Diagnosis Date Acute renal failure (ARF) (HCC) 10/19/2019 Anemia 12/30/2021 Calcification of abdominal aorta (HCC) 10/08/202309/[address] abd Diverticulosis 10/08/2023 [place] hemodialysis [place] ([facility]) 10/26/2019 Hemodialysis patient [place] ([facility]) HTN (hypertension) 12/01/2022 Hypertension IgA nephropathy IgA nephropathy determined by biopsy of kidney 10/26/2019 Missed vaccination due to patient refusal 10/08/2023 Has a number of non-scientific based beliefs which interfere with his understanding and acceptance of the medical benefit of vaccination. Nonrheumatic aortic valve stenosis 10/08/2023 Paroxysmal A-fib [place] ([facility]) 08/18/2023 Tobacco abuse 10/08/2023 [2] Lidocaine, [...] History: Diagnosis Date Acute renal failure (ARF) ([facility]) 10/19/2019 Anemia 12/30/2021 Calcification of abdominal aorta ([facility]) 10/08/202309/[address] abd Diverticulosis 10/08/2023 ESRD [place] hemodialysis [place] ([facility]) 10/26/2019 Hemodialysis patient [place] ([facility]) HTN (hypertension) 12/01/2022 Hypertension IgA nephropathy IgA nephropathy determined by biopsy of kidney 10/26/2019 Missed vaccination due to patient refusal 10/08/2023 Has a number of non-scientific based beliefs which interfere with his understanding and acceptance of the medical benefit of vaccination. Nonrheumatic aortic valve stenosis 10/08/2023 Paroxysmal A-fib ([facility] ([facility]) 08/18/2023 Tobacco abuse 10/08/2023 [facility] Anticoagulation Management Service ([facility]) Inpatient [...] dose accordingly. 3. Warfarin is followed by [facility] outpatient. [facility] will manage inpatient and take over management once discharged from [facility]. Darya Mireles RP, PharmD, BCPS [facility] is available daily [phone] via [employer]. If no response on [employer] Chat then please page [phone]. [1] Past Medical History: Diagnosis Date Acute renal failure (ARF) ([facility]) 10/19/2019 Anemia 12/30/2021 Calcification of abdominal aorta ([facility]) 10/08/202309/[address] abd Diverticulosis 10/08/2023 ESRD on hemodialysis ([facility]) (HCC) 10/26/2019 Hemodialysis patient ([facility]) ([facility]) HTN (hypertension) 12/01/2022 Hypertension IgA nephropathy IgA nephropathy determined by biopsy of kidney 10/26/2019 Missed vaccination due to patient refusal 10/08/2023 Has a number of non-scientific based beliefs which interfere with his understanding and acceptance of the medical benefit of vaccination. Nonrheumatic aortic valve stenosis 10/08/2023 Paroxysmal A-fib ([facility]) ([facility]) 08/18/2023 Tobacco abuse 10/08/2023 Hospitalist Progress Note Subjective: Admit Date: 03/13/2025 PCP: Leilani Han Room#: [id number] A Chief Complaint Patient presents with Shortness of Breath Pt arrived from [facility] via EMS. Pt was starting dialysis and [...] Klebsiella pneumonia with lung abscess presented to [facility] ED with worsening shortness of breath. He [...] in upper abdomen He was transferred from [facility] to [facility] due to bed availability Nephrology consulted, seen [...] ending 03/17/25 0933 LABS: CBC: Recent Labs 03/15/2543303/16/2515403/17/2546 WBC 6.7 7.0 6.7 RBC 3.02* 3.02* 3.31* HGB 9.2* 9.1* 10.0* HCT 30.1* 30.2* 33.8* MCV 99.7* 100.0* 102.1* RDW 21.3* 21.2* 21.2* PLT 392 372 407 BMP: Recent Labs 03/15/2543303/16/2515403/17/2546 NA 139 139 141 K 4.5 4.1 3.9 CL 100 104 104 CO2 28 26 25 BUN 30* 18 22 CREATININE 3.13* 2.35* 3.25* GLUCOSE 91 83 87 CALCIUM 9.2 9.1 9.6 ANIONGAP 11 9 12 LIVER PROFILE: Recent Labs 03/15/2543303/16/2515403/17/25 004 AST 49* 47* 54* ALT 14 13 15 BILITOT 0.8 0.9 0.9 ALKPHOS 201* 194* 223* PROT 7.6 7.3 8.0 PT/INR: Recent Labs 03/15/2543303/16/2515403/17/25 004 PROTIME 17.9* 17.3* 16.0* INR 1.7* 1.7* [...] LillianOmar Mobile Relation: Child Secondary Emergency Contact: Toma Mcneil Mobile Relation: Partner Barb Dawkins MD Division of Hospital Medicine Inpatient Medical Services/[facility] [1] Past Medical History: Diagnosis Date Acute renal failure (ARF) ([facility]) 10/19/2019 Anemia 12/30/2021 Calcification of abdominal aorta ([facility]) 10/08/202309/[address] abd Diverticulosis 10/08/2023 [place] hemodialysis [place] ([facility]) 10/26/2019 Hemodialysis patient [place] ([facility]) HTN (hypertension) 12/01/2022 Hypertension IgA nephropathy IgA nephropathy determined by biopsy of kidney 10/26/2019 Missed vaccination due to patient refusal 10/08/2023 Has a number of non-scientific based beliefs which interfere with his understanding and acceptance of the medical benefit of vaccination. Nonrheumatic aortic valve stenosis 10/08/2023 Paroxysmal A-fib ([facility]) ([facility]) 08/18/2023 Tobacco abuse 10/08/2023 [2] Lidocaine, [...] History: Diagnosis Date Acute renal failure (ARF) ([facility]) 10/19/2019 Anemia 12/30/2021 Calcification of abdominal aorta ([facility]) 10/08/202309/[address] abd Diverticulosis 10/08/2023 ESRD [place] hemodialysis [place] ([facility]) 10/26/2019 Hemodialysis patient [place] ([facility]) HTN (hypertension) 12/01/2022 Hypertension IgA nephropathy IgA nephropathy determined by biopsy of kidney 10/26/2019 Missed vaccination due to patient refusal 10/08/2023 Has a number of non-scientific based beliefs which interfere with his understanding and acceptance of the medical benefit of vaccination. Nonrheumatic aortic valve stenosis 10/08/2023 [facility] [place]) 08/18/2023 Tobacco abuse 10/08/2023 Nephrology Progress [...] Labs 03/15/25 0434 03/16/25 0155 03/17/25 0047 WBC 6.7 7.0 6.7 HGB 9.2* 9.1* 10.0* HCT 30.1* 30.2* 33.8* MCV 99.7* 100.0* 102.1* PLT 392 372 407 Recent Labs 03/15/25 0434 03/16/25 0155 03/17/25 0047 NA 139 139 141 [...] sacral wound. Wellington Nicole MD' Please call [phone] or message me through [employer] [employer] with any questions or concerns. [facility] Anticoagulation Management Service ([facility]) Inpatient [...] heparin while INR is subtherapeutic. Darya Mireles RPh, PharmD [facility] is available daily [phone] via [employer]. If no response on [employer] Chat then please page [phone]. [1] Past Medical History: Diagnosis Date Acute renal failure (ARF) ([facility]) 10/19/2019 Anemia 12/30/2021 Calcification of abdominal aorta ([facility]) 10/08/202309/[address] abd Diverticulosis 10/08/2023 ESRD on hemodialysis ([facility]) ([facility]) 10/26/2019 [place]) HTN (hypertension) 12/01/2022 Hypertension IgA nephropathy IgA nephropathy determined by biopsy of kidney 10/26/2019 Missed vaccination due to patient refusal 10/08/2023 Has a number of non-scientific based beliefs which interfere with his understanding and acceptance of the medical benefit of vaccination. Nonrheumatic aortic valve stenosis 10/08/2023 Paroxysmal A-fib ([facility]) ([facility]) 08/18/2023 Tobacco abuse 10/08/2023 Images from the original note were not included. OCCUPATIONAL THERAPY [facility] Initial Evaluation Name/MRN: Jair Snyder ([id number]) Evaluation Date: 03/16/2025 Date of : 1965 Admission Date: 03/13/2025 8:18 AM Age: 59 y.o. Room[facility]Bed: [facility] A Discharge Recommendation: Longterm Facility Assessment IMPRESSION: Pt presented with SOB, [...] Problem List Diagnosis Date Noted Moderate malnutrition (CMS/HCC) ([facility]) 03/14/2025 SOB (shortness of breath) 03/13/2025 Severe malnutrition (CMS/HCC) ([facility]) 02/21/2025 Hemoptysis 02/20/2025 Complication of tracheostomy (CMS/HCC) ([facility]) 01/19/2025 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 01/12/2025 Acute respiratory failure with hypoxia ([facility]) [J96.01] 01/08/2025 Tracheostomy care ([facility]) [Z43.0] 01/08/2025 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[facility]) 01/08/2025 Sacral osteomyelitis (CMS/HCC) ([facility]) 01/03/2025 Pneumonia of both lungs due to methicillin susceptible Staphylococcus aureus (MSSA) ([facility]) 01/01/2025 Leukocytosis 12/30/2024 Decubitus ulcer of sacral region, unstageable ([facility]) 12/30/2024 Peritonitis due to fungus ([facility]) 11/30/2024 History of abdominal surgery 11/30/2024 Leg DVT (deep venous thromboembolism), acute, left ([facility]) 11/30/2024 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, 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 of skin ([facility]) 11/30/2024 Tracheostomy dependence ([facility]) 11/30/2024 Pleural effusion 11/28/2024 Gastric ulceration 2024 Atrial flutter, unspecified type ([facility]) 10/03/2024 RSV (acute bronchiolitis due to respiratory syncytial virus) 10/03/2024 Diverticulosis 10/08/2023 Nonrheumatic aortic valve stenosis 10/08/2023 Calcification of abdominal aorta ([facility]) 10/08/2023 Missed vaccination due to patient refusal 10/08/2023 Tobacco abuse 10/08/2023 Alcohol use disorder in remission 10/08/2023 Paroxysmal A-fib [place]) 08/18/2023 HTN (hypertension) 12/01/2022 ESRD [place] hemodialysis [place]) 10/26/2019 IgA nephropathy determined by biopsy of kidney 10/26/2019 BRBPR (bright red blood per rectum) 01/19/2025 Aortic stenosis 10/03/2024 Upper GI bleed 10/03/2024 S/P AVR 10/03/2024 Acute hypoxic respiratory failure ([facility]) 10/03/2024 Acute encephalopathy 10/03/2024 Pneumoperitoneum 10/03/2024 [...] Daily Activity Raw Score: 17 ADL Inpatient CMS G-Code Modifier: CK Plan Pt would benefit [...] of Care supervision is transferred to a [facility] Therapy Services Occupational Therapist. Goals and/or treatment plan was established in collaboration with patient/family/other representatives. [1] Past Medical History: Diagnosis Date Acute renal failure (ARF) ([facility]) 10/19/2019 Anemia 12/30/2021 Calcification of abdominal aorta ([facility]) 10/08/202309/[address] abd Diverticulosis 10/08/2023 ESRD on hemodialysis ([facility]) ([facility]) 10/26/2019 [place]) HTN (hypertension) 12/01/2022 Hypertension IgA nephropathy IgA nephropathy determined by biopsy of kidney 10/26/2019 Missed vaccination due to patient refusal 10/08/2023 Has a number of non-scientific based beliefs which interfere with his understanding and acceptance of the medical benefit of vaccination. Nonrheumatic aortic valve stenosis 10/08/2023 Paroxysmal A-fib ([facility]) ([facility]) 08/18/2023 Tobacco abuse 10/08/2023 [2] Past Surgical History: Procedure Laterality Date APPENDECTOMY CARDIAC CATHETERIZATION N/A 10/09/2024 Performed by Bob Watson MD at [facility] Cardiac Cath/EP Lab CARDIAC CATHETERIZATION Bilateral 11/01/2024 Performed by Bob Watson MD at [facility] Cardiac Cath/EP Lab CARDIAC CATHETERIZATION N/A 11/01/2024 Performed by Bob Watson MD at [facility] Cardiac Cath/EP Lab COLONOSCOPY N/A 01/24/2025 Performed by Chadd Davis MD at [facility] ENDOSCOPY FISTULAGRAM (HISTORICAL) Left 09/15/2021 LEFT UPPER ARM HX AV FISTULA CREATION IR EMBOLIZATION 10/14/2024 IR EMBOLIZATION 10/14/2024 [facility] SPECIAL PROCEDURES IR FISTULAGRAM 08/07/2022 IR FISTULAGRAM 08/07/2022 [facility] IR IMAGING TONSILLECTOMY (HISTORICAL) Hospitalist Progress Note Subjective: Admit Date: 03/13/2025 PCP: Leilani Han Room#: [id number] A Chief Complaint Patient presents with Shortness of Breath [facility]. Pt was starting dialysis and [...] Klebsiella pneumonia with lung abscess presented to [facility] ED with worsening shortness of breath. He [...] in upper abdomen He was transferred from [facility] to [facility] due to bed availability Nephrology consulted, seen [...] MD Division of Hospital Medicine Inpatient Medical Services/[facility] [1] Past Medical History: Diagnosis Date Acute renal failure (ARF) (HCC) 10/19/2019 Anemia 12/30/2021 Calcification of abdominal aorta (HCC) 10/08/202309/[address] abd Diverticulosis 10/08/2023 [place]) 10/26/2019 Hemodialysis [place]) HTN (hypertension) 12/01/2022 Hypertension IgA nephropathy IgA nephropathy determined by biopsy of kidney 10/26/2019 Missed vaccination due to patient refusal 10/08/2023 Has a number of non-scientific based beliefs which interfere with his understanding and acceptance of the medical benefit of vaccination. Nonrheumatic aortic valve stenosis 10/08/2023 Paroxysmal A-fib [place]) 08/18/2023 Tobacco abuse 10/08/2023 [2] Lidocaine, [...] History: Diagnosis Date Acute renal failure (ARF) ([facility]) 10/19/2019 Anemia 12/30/2021 Calcification of abdominal aorta ([facility]) 10/08/202309/[address] abd Diverticulosis 10/08/2023 [place]D [place] hemodialysis [place]) 10/26/2019 Hemod[place]) HTN (hypertension) 12/01/2022 Hypertension IgA nephropathy IgA nephropathy determined by biopsy of kidney 10/26/2019 Missed vaccination due to patient refusal 10/08/2023 Has a number of non-scientific based beliefs which interfere with his understanding and acceptance of the medical benefit of vaccination. Nonrheumatic aortic valve stenosis 10/08/2023 Paroxysmal A-fib [place]) 08/18/2023 Tobacco abuse 10/08/2023 Nephrology Progress [...] or concerns Bree Molina APRN, CNP A-G MECHANICAL TEST TECHNICIAN [facility] [place] [phone] Pt seen and examined independently by me. I reviewed with DENIA-SAMIA the medical history and the findings on physical examination. I discussed the patient s diagnosis and concur with the treatment plan as documented in his note. Please call [phone] or message me through [employer] with any questions or concerns. Images from the original note were not included. [facility] Wound VAC Progress Note Jun Snyder AGE: [...] pain with IV pain medication, per staff services manager, prior to wound VAC dressing change. 1 [...] to follow Recommend to follow up at [facility] wound care center after hospital discharge. Any [...] History: Diagnosis Date Acute renal failure (ARF) ([facility]) 10/19/2019 Anemia 12/30/2021 Calcification of abdominal aorta ([facility]) 10/08/202309/[address] abd Diverticulosis 10/08/2023 ESRD [place] hemodialysis [place]) 10/26/2019 Hemodialysis [place]) HTN (hypertension) 12/01/2022 Hypertension IgA nephropathy IgA nephropathy determined by biopsy of kidney 10/26/2019 Missed vaccination due to patient refusal 10/08/2023 Has a number of non-scientific based beliefs which interfere with his understanding and acceptance of the medical benefit of vaccination. Nonrheumatic aortic valve stenosis 10/08/2023 Paroxysmal A-fib ([facility]) ([facility]) 08/18/2023 Tobacco abuse 10/08/2023 [2] Past Surgical History: Procedure Laterality Date APPENDECTOMY CARDIAC CATHETERIZATION N/A 10/09/2024 Performed by Bob Watson MD at [facility] Cardiac Cath/EP Lab CARDIAC CATHETERIZATION Bilateral 11/01/2024 Performed by Bob Watson MD at [facility] Cardiac Cath/EP Lab CARDIAC CATHETERIZATION N/A 11/01/2024 Performed by Bob Watson MD at [facility] Cardiac Cath/EP Lab COLONOSCOPY N/A 01/24/2025 Performed by Chadd Davis MD at [facility] ENDOSCOPY FISTULAGRAM (HISTORICAL) Left 09/15/2021 LEFT UPPER ARM HX AV FISTULA CREATION IR EMBOLIZATION 10/14/2024 IR EMBOLIZATION 10/14/2024 [facility] SPECIAL PROCEDURES IR FISTULAGRAM 08/07/2022 IR [...] Gill DO at 03/19/2025 4:44 PM EDT [facility] Anticoagulation Management Service ([facility]) Inpatient [...] dose accordingly 3. Will facilitate f/u at [facility] upon discharge Kvng Dugan PharmD 2024 Candidate [facility] is available daily [phone] via [employer]. If no response on [employer] Chat then please page [phone]. [1] Past Medical History: Diagnosis Date Acute renal failure (ARF) ([facility]) 10/19/2019 Anemia 12/30/2021 Calcification of abdominal aorta ([facility]) 10/08/202309/[address] abd Diverticulosis 10/08/2023 ESRD on hemodialysis ([facility]) ([facility]) 10/26/2019 Hemodialysis patient ([facility]) ([facility]) HTN (hypertension) 12/01/2022 Hypertension IgA nephropathy IgA nephropathy determined by biopsy of kidney 10/26/2019 Missed vaccination due to patient refusal 10/08/2023 Has a number of non-scientific based beliefs which interfere with his understanding and acceptance of the medical benefit of vaccination. Nonrheumatic aortic valve stenosis 10/08/2023 Paroxysmal A-fib (CMS/HCC) (HCC) 08/18/2023 Tobacco abuse 10/08/2023 Cosigned by Tiffanie Dial [facility] at 03/16/2025 10:57 AM EDT Patient currently off unit, will attempt smoking cessation counseling at a later date. Hospitalist Progress Note Subjective: Admit Date: 03/13/2025 PCP: Leilani Han Room#: [id number] A Chief Complaint Patient presents with Shortness of Breath Pt [facility]. Pt was starting dialysis and [...] Klebsiella pneumonia with lung abscess presented to [facility] ED with worsening shortness of breath. He [...] in upper abdomen He was transferred from [facility] to [facility] due to bed availability Nephrology consulted, seen [...] Secondary Emergency Contact: [employer] Relation: Partner [employer] Annamarie Dawkins MD Division of Hospital Medicine Inpatient Medical Services/[facility] [1] Past Medical History: Diagnosis Date Acute renal failure (ARF) ([facility]) 10/19/2019 Anemia 12/30/2021 Calcification of abdominal aorta ([facility]) 10/08/202309/[address] abd Diverticulosis 10/08/2023 [place]ialysis [place]) 10/26/2019 Hemodialysis [place] [place]) HTN (hypertension) 12/01/2022 Hypertension IgA nephropathy IgA nephropathy determined by biopsy of kidney 10/26/2019 Missed vaccination due to patient refusal 10/08/2023 Has a number of non-scientific based beliefs which interfere with his understanding and acceptance of the medical benefit of vaccination. Nonrheumatic aortic valve stenosis 10/08/2023 Paroxysmal A-fib ([facility]) ([facility]) 08/18/2023 Tobacco abuse 10/08/2023 [2] Lidocaine, [...] History: Diagnosis Date Acute renal failure (ARF) ([facility]) 10/19/2019 Anemia 12/30/2021 Calcification of abdominal aorta ([facility]) 10/08/202309/[address] abd Diverticulosis 10/08/2023 ESRD on hemodialysis ([facility]) ([facility]) 10/26/2019 Hemod[place] [place]) HTN (hypertension) 12/01/2022 Hypertension IgA nephropathy IgA nephropathy determined by biopsy of kidney 10/26/2019 Missed vaccination due to patient refusal 10/08/2023 Has a number of non-scientific based beliefs which interfere with his understanding and acceptance of the medical benefit of vaccination. Nonrheumatic aortic valve stenosis 10/08/2023 Paroxysmal A-fib ([facility]) ([facility]) 08/18/2023 Tobacco abuse 10/08/2023 Nephrology Progress [...] any questions or concerns Bree Molina APRN APPLICATION HELPER A-G MECHANICAL TEST TECHNICIAN [facility] [place] [phone] Pt seen and examined independently by me. I reviewed with DENIA-APPLICATION HELPER the medical history and the findings on physical examination. I discussed the patient s diagnosis and concur with the treatment plan as documented in his note. Please call [phone] or message me through [employer] with any questions or concerns. [facility] Anticoagulation Management Service ([facility]) Inpatient Warfarin Consult HPI: Jun Snyder is a 59 y.o. male admitted on 03/13/2025 for SOB (shortness of breath) [R06.02] Medical History[1] Patient is on warfarin for Heart Valve Replacement and has a goal INR 2.0 - 3.0. Warfarin is currently managed by SNF, will be followed by [facility] after return to home. Pt's home dose [...] dose accordingly 3. Will facilitate f/u at [facility] upon discharge Kvng Dugan PharmD 2024 Candidate [facility] is available daily [phone] via [employer]. If no response on [employer] Chat then please page [phone]. [1] Past Medical History: Diagnosis Date Acute renal failure (ARF) ([facility]) 10/19/2019 Anemia 12/30/2021 Calcification of abdominal aorta ([facility]) 10/08/202309/[address] abd Diverticulosis 10/08/2023 [place]ialysis [place] [place]) 10/26/2019 Hemodialysis [place] [place]) HTN (hypertension) 12/01/2022 Hypertension IgA nephropathy IgA nephropathy determined by biopsy of kidney 10/26/2019 Missed vaccination due to patient refusal 10/08/2023 Has a number of non-scientific based beliefs which interfere with his understanding and acceptance of the medical benefit of vaccination. Nonrheumatic aortic valve stenosis 10/08/2023 Paroxysmal A-fib ([facility]) ([facility]) 08/18/2023 Tobacco abuse 10/08/2023 Cosigned by Tiffanie Dial RPh at 03/15/2025 1:17 PM EDT Images from the original note were not included. [facility] Wound VAC Progress Note Jun Snyder AGE: [...] apply Betadine and allow to dry, leave GAS DISPATCHER daily and PRN Nutritional support Wound Care to follow Recommend to follow up at [facility] wound care center after hospital discharge. Any [...] History: Diagnosis Date Acute renal failure (ARF) ([facility]) 10/19/2019 Anemia 12/30/2021 Calcification of abdominal aorta ([facility]) 10/08/202309/[address] abd Diverticulosis 10/08/2023 ESRD [place] hemodialysis [place] [place]) 10/26/2019 Hemodialysis [place] [place]) HTN (hypertension) 12/01/2022 Hypertension IgA nephropathy IgA nephropathy determined by biopsy of kidney 10/26/2019 Missed vaccination due to patient refusal 10/08/2023 Has a number of non-scientific based beliefs which interfere with his understanding and acceptance of the medical benefit of vaccination. Nonrheumatic aortic valve stenosis 10/08/2023 Paroxysmal A-fib ([facility]) ([facility]) 08/18/2023 Tobacco abuse 10/08/2023 [2] Past Surgical History: Procedure Laterality Date APPENDECTOMY CARDIAC CATHETERIZATION N/A 10/09/2024 Performed by Bob Watson MD at [facility] Cardiac Cath/EP Lab CARDIAC CATHETERIZATION Bilateral 11/01/2024 Performed by Bob Watson MD at [facility] Cardiac Cath/EP Lab CARDIAC CATHETERIZATION N/A 11/01/2024 Performed by Bob Watson MD at [facility] Cardiac Cath/EP Lab COLONOSCOPY N/A 01/24/2025 Performed by Chadd Davis MD at [facility] ENDOSCOPY FISTULAGRAM (HISTORICAL) Left 09/15/2021 LEFT UPPER ARM HX AV FISTULA CREATION IR EMBOLIZATION 10/14/2024 IR EMBOLIZATION 10/14/2024 [facility] SPECIAL PROCEDURES IR FISTULAGRAM 08/07/2022 IR [...] original note were not included. PHYSICAL THERAPY [facility] Initial Evaluation Name/MRN: Jair Snyder ([id number]) Evaluation Date: 03/14/2025 Date of : 1965 Admission Date: 03/13/2025 8:18 AM Age: 59 y.o. Room[facility]Bed: [facility] A Discharge Recommendation: Longterm Facility Equipment Needed: No Assessment IMPRESSION: Pt [...] SOB (shortness of breath) 03/13/2025 Severe malnutrition ([facility]) ([facility]) 02/21/2025 Hemoptysis 02/20/2025 Complication of tracheostomy ([facility]) ([facility]) 01/19/2025 nursing home (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 01/12/2025 Acute respiratory failure with hypoxia ([facility]) [J96.01] 01/08/2025 Tracheostomy care ([facility]) [Z43.0] 01/08/2025 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[facility]) 01/08/2025 Sacral osteomyelitis ([facility]) ([facility]) 01/03/2025 Pneumonia of both lungs due to methicillin susceptible Staphylococcus aureus (MSSA) ([facility]) 01/01/2025 Leukocytosis 12/30/2024 Decubitus ulcer of sacral region, unstageable ([facility]) 12/30/2024 Peritonitis due to fungus ([facility]) 11/30/2024 History of abdominal surgery 11/30/2024 Leg DVT (deep venous thromboembolism), acute, left ([facility]) 11/30/2024 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, 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 of skin ([facility]) 11/30/2024 Tracheostomy dependence ([facility]) 11/30/2024 Pleural effusion 11/28/2024 Gastric ulceration 2024 Atrial flutter, unspecified type ([facility]) 10/03/2024 RSV (acute bronchiolitis due to respiratory syncytial virus) 10/03/2024 Diverticulosis 10/08/2023 Nonrheumatic aortic valve stenosis 10/08/2023 Calcification of abdominal aorta ([facility]) 10/08/2023 Missed vaccination due to patient refusal 10/08/2023 Tobacco abuse 10/08/2023 Alcohol use disorder in remission 10/08/2023 Paroxysmal A-fib ([facility]) ([facility]) 08/18/2023 HTN (hypertension) 12/01/2022 [place] hemodialysis [place] [place]) 10/26/2019 IgA nephropathy determined by biopsy [...] awareness. Social/Functional History Pt has been at [facility] for [facility] for the past ~1 month. [...] Stairs) : 15 JH-HLM -HLM Score: Walked 10 steps or more (i.e. [...] of Care supervision is transferred to a [facility] Physical Therapist. Goals and/or treatment plan was established in collaboration with patient/family/other representatives. [1] Past Medical History: Diagnosis Date Acute renal failure (ARF) ([facility]) 10/19/2019 Anemia 12/30/2021 Calcification of abdominal aorta [facility] [facility] 10/08/202309/[address] abd Diverticulosis 10/08/2023 ESRD on hemodialysis ([facility] ([facility]) 10/26/2019 Hemod[place] ([facility]) HTN (hypertension) 12/01/2022 Hypertension IgA nephropathy IgA nephropathy determined by biopsy of kidney 10/26/2019 Missed vaccination due to patient refusal 10/08/2023 Has a number of non-scientific based beliefs which interfere with his understanding and acceptance of the medical benefit of vaccination. Nonrheumatic aortic valve stenosis 10/08/2023 Paroxysmal A-fib ([facility]) ([facility]) 08/18/2023 Tobacco abuse 10/08/2023 [2] Past Surgical History: Procedure Laterality Date APPENDECTOMY CARDIAC CATHETERIZATION N/A 10/09/2024 Performed by Bob Watson MD at [facility] Cardiac Cath/EP Lab CARDIAC CATHETERIZATION Bilateral 11/01/2024 Performed by Bob Watson MD at [facility] Cardiac Cath/EP Lab CARDIAC CATHETERIZATION N/A 11/01/2024 Performed by Bob Watson MD at [facility] Cardiac Cath/EP Lab COLONOSCOPY N/A 01/24/2025 Performed by Chadd Davis MD at [facility] ENDOSCOPY FISTULAGRAM (HISTORICAL) Left 09/15/2021 LEFT UPPER ARM HX AV FISTULA CREATION IR EMBOLIZATION 10/14/2024 IR EMBOLIZATION 10/14/2024 [facility] SPECIAL PROCEDURES IR FISTULAGRAM 08/07/2022 IR FISTULAGRAM 08/07/2022 [facility] IR IMAGING TONSILLECTOMY (HISTORICAL) Hospitalist Progress Note Subjective: Admit Date: 03/13/2025 PCP: Leilani Han Room#: W1-775/[id number] A Chief Complaint Patient presents with Shortness of Breath [facility] from [facility]. Pt was starting dialysis and [...] Klebsiella pneumonia with lung abscess presented to [facility] ED with worsening shortness of breath. He [...] in upper abdomen He was transferred from [facility] to [facility] due to bed availability Nephrology consulted, seen [...] PLT 392 BMP: Recent Labs 03/13/25 0945 06/18/25 0507 NA 141 141 K 3.5 5.2* [...] Extended Emergency Contact Information Primary Emergency Contact: Adrian Snydered Mobile Relation: Child Secondary Emergency Contact: TarunToma Mobile Relation: Partner Barb Dawkins MD Division of Hospital Medicine Inpatient Medical Services/[facility] [1] Past Medical History: Diagnosis Date Acute renal failure (ARF) ([facility]) 10/19/2019 Anemia 12/30/2021 Calcification of abdominal aorta ([facility]) 10/08/202309/[address] abd Diverticulosis 10/08/2023 ESRD on hemodialysis ([facility] ([facility]) 10/26/2019 Hemodialysis patient ([facility] ([facility]) HTN (hypertension) 12/01/2022 Hypertension IgA nephropathy IgA nephropathy determined by biopsy of kidney 10/26/2019 Missed vaccination due to patient refusal 10/08/2023 Has a number of non-scientific based beliefs which interfere with his understanding and acceptance of the medical benefit of vaccination. Nonrheumatic aortic valve stenosis 10/08/2023 Paroxysmal A-fib [place] ([facility]) 08/18/2023 Tobacco abuse 10/08/2023 [2] Lidocaine, [...] History: Diagnosis Date Acute renal failure (ARF) ([facility]) 10/19/2019 Anemia 12/30/2021 Calcification of abdominal aorta ([facility]) 10/08/202309/[address] abd Diverticulosis 10/08/2023 ESRD [place] hemodialysis [place] ([facility]) 10/26/2019 Hemodialysis patient [place] ([facility]) HTN (hypertension) 12/01/2022 Hypertension IgA nephropathy IgA nephropathy determined by biopsy of kidney 10/26/2019 Missed vaccination due to patient refusal 10/08/2023 Has a number of non-scientific based beliefs which interfere with his understanding and acceptance of the medical benefit of vaccination. Nonrheumatic aortic valve stenosis 10/08/2023 Paroxysmal A-fib [place] ([facility]) 08/18/2023 Tobacco abuse 10/08/2023 [facility] Anticoagulation Management Service ([facility]) Inpatient [...] medications= none Labs: Recent Labs 03/13/25 0902 HGB 11.8* 8.5* HCT 28.4* PLT 392 Recent Labs 03/13/25 0902 INR 1.7* Date INR Dose 03/14 --- 1.5mg 03/13 1.7 3mg Assessment/Plan: 1. Subtherapeutic INR yesterday, received boost dose. Will give 1.5mg today--higher end of home dose 2. Monitor for s/s of bleeding and drug interactions. Will adjust dose accordingly 3. Will facilitate f/u at [facility] upon discharge Tiffanie Dial RPh, PharmD [facility] is available daily [phone] via [employer]. If no response on [facility] [employer] Chat then please page [phone]. [1] Past Medical History: Diagnosis Date Acute renal failure (ARF) ([facility]) 10/19/2019 Anemia 12/30/2021 Calcification of abdominal aorta ([facility]) 10/08/202309/[address] abd Diverticulosis 10/08/2023 ESRD on hemodialysis ([facility]) ([facility]) 10/26/2019 Hemodialysis patient [place] ([facility]) HTN (hypertension) 12/01/2022 Hypertension IgA nephropathy IgA nephropathy determined by biopsy of kidney 10/26/2019 Missed vaccination due to patient refusal 10/08/2023 Has a number of non-scientific based beliefs which interfere with his understanding and acceptance of the medical benefit of vaccination. Nonrheumatic aortic valve stenosis 10/08/2023 Paroxysmal A-fib ([facility]) ([facility]) 08/18/2023 Tobacco abuse 10/08/2023 documented in this encounter [facility] 03-21-2025 Note Formatting of this n ote might be different from the original. Care Management Progress Note Short Medical why still here: Heparin gtt stopped today. . INR 2.9 today. Getting Coumadin. Refusing to work with therapy. They would like to skill him if able. Planned Discharge Disposition: Correction/Residential Care Barriers/Today we still Wait: Administering IV medications, Test results (comment) Length of Stay (Days): 8 GMLOS: 3.9 [facility] 03-21-2025 Note Formatting of this n ote might be different from the original. Care Management Progress Note Short Medical why still here: Heparin gtt stopped today. . INR 2.9 today. Getting Coumadin. Refusing to work with therapy. They would like to skill him if able. Planned Discharge Disposition: Correction/Residential Care Barriers/Today we still Wait: Administering IV medications, Test results (comment) Length of Stay (Days): 8 GMLOS: 3.9 T [facility] 03-21-2025 Plan of care note Problem: Knowledge [...] and maintained or improved Outcome: Progressing T [facility] 03-20-2025 Nurse Note Patient Name: Jun Snyder Patient : 1965 Acct: [id number] Date of Admission: 03/13/2025 [facility] [...] - Before each treatment: Dialysis Machine No.: [id number] RO Machine Number: [id number] Dialyzer Lot No.: [id number] Tubing Lot Number: [id number] All Connections Secure: Yes Venous Parameters Set: Yes Arterial Parameters Set: Yes NS Bag: Yes Saline Line Double Clamped: Yes Dialyzer: Nipro Prime Volume (mL): 200 mL RO Machine Number: [id number] RO Machine Log Sheet Completed: Yes Machine Alarm Self Test: Completed, Passed (03/20/25 1145) Air Foam Detector: Tested, Proper Function, pH Reading Extracorporeal Circuit Tested for Integrity: Yes Machine Conductivity: 13.8 Manual Conductivity: 13.8 Manual Ph: 7 Bleach Test (Neg): Yes Bath Temperature: 36 C (96.8 F) Conductivity Meter Serial #: [id number] Machine Functioning Alarm Free? Yes Dialysis Bath: [...] 1701 mmHg 80 600 Yes pt stable 2012 uf removed 03/20/25 1500 400 mL/min 830 [...] Other (Comment) (to inform patient arrival from [place] emergency room and need for orders) Provider [...] Active Problem List Diagnosis Anemia Paroxysmal A-fib ([facility]) ([facility]) HTN (hypertension) ESRD on hemodialysis ([facility]) ([facility]) IgA nephropathy determined by biopsy of kidney Diverticulosis Nonrheumatic aortic valve stenosis Calcification of abdominal aorta ([facility]) Missed vaccination due to patient refusal Tobacco abuse Alcohol use disorder in remission Atrial flutter, unspecified type ([facility]) RSV (acute bronchiolitis due to respiratory syncytial virus) Aortic stenosis Upper GI bleed S/P AVR Acute hypoxic respiratory failure ([facility]) Acute encephalopathy Pneumoperitoneum Gastric ulceration Severe malnutrition ([facility]) ([facility]) Pleural effusion Peritonitis due to fungus (HCC) History of abdominal surgery Leg DVT (deep venous thromboembolism), acute, left (HCC) 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, 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) Tracheostomy dependence (HCC) Leukocytosis Decubitus ulcer of sacral region, unstageable (HCC) Pneumonia of both lungs due to methicillin susceptible Staphylococcus aureus (MSSA) (HCC) Sacral osteomyelitis (CMS/HCC) ([facility]) Acute respiratory failure with hypoxia ([facility]) [J96.01] Tracheostomy care ([facility]) [Z43.0] 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[facility]) nursing home (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 Complication of tracheostomy (CMS/HCC) ([facility]) BRBPR (bright red blood per rectum) Hemoptysis SOB (shortness of breath) Moderate malnutrition (CMS/HCC) ([facility]) [3] heparin, 5-30 Units/kg/hr, Last Rate: 20 Units/kg/hr (03/20/25 1328) [facility] 03-20-2025 Note Formatting of this n ote might be different from the original. Care Management Progress Note Short Medical why still here: Heparin gtt bridging to Coumadin. INR 1.9 today Planned Discharge Disposition: Correction/Residential Care Barriers/Today we still Wait: Clinical stability Length of Stay (Days): 7 GMLOS: 3.9 [facility] 03-20-2025 Note Formatting of this n ote might be different from the original. Care Management Progress Note Short Medical why still here: Heparin gtt bridging to Coumadin. INR 1.9 today Planned Discharge Disposition: Correction/Residential Care Barriers/Today we still Wait: Clinical stability Length of Stay (Days): 7 GMLOS: 3.9 [facility] 03-20-2025 Plan of care note Problem: [...] and maintained or improved Outcome: Progressing T [facility] 03-19-2025 Note Formatting of this n ote might be different from the original. Care Management Progress Note Continues on a Heparin gtt. Trying to bridge to Coumadin. INR 1.6 today. When stable plan is to return to [facility].. . Length of Stay (Days): 6 GMLOS: 3.9 T [facility] 03-19-2025 Note Formatting of this n ote might be different from the original. Care Management Progress Note Continues on a Heparin gtt. Trying to bridge to Coumadin. INR 1.6 today. When stable plan is to return to [facility].. . Length of Stay (Days): 6 GMLOS: 3.9 [facility] 03-19-2025 Plan of care note Problem: [...] monitored and maintained or improved Outcome: Progressing [facility] 03-19-2025 Plan of care note Problem: [...] monitored and maintained or improved Outcome: Progressing [facility] 03-19-2025 Nurse Note Wound vac suction failing-pt requesting wound vac removed for now. Black foam dressing removed and wound packed with saline-soaked gauze covered with DSD [facility] 03-19-2025 Nurse Note Pt adamantly refusing telemetry at this time, ripped off monitor and threw to the floor [facility] 03-18-2025 Note Problem: Pain - Adul t Goal: Verbalizes/displays adequate comfort level or baseline comfort level Outcome: Progressing Problem: Safety - Adult Goal: Free from fall injury Outcome: Progressing [facility] 03-18-2025 Plan of care note Problem: Pain - Adult Goal: Verbalizes/displays adequate comfort level or baseline comfort level Outcome: Progressing Problem: Safety - Adult Goal: Free from fall injury Outcome: Progressing [facility] 03-17-2025 Plan of care note Problem: Knowledge [...] and maintained or improved Outcome: Progressing T [facility] 03-17-2025 Note Problem: Pain - Adul t Goal: Verbalizes/displays adequate comfort level or baseline comfort level Outcome: Progressing Problem: Safety - Adult Goal: Free from fall injury Outcome: Progressing [facility] 03-17-2025 Plan of care note Problem: Pain - Adult Goal: Verbalizes/displays adequate comfort level or baseline comfort level Outcome: Progressing Problem: Safety - Adult Goal: Free from fall injury Outcome: Progressing T [facility] 03-17-2025 Nurse Note Patient Name: Jun Snyder Patient : 1965 Acct: [id number] Date of Admission: 03/13/2025 [facility] [...] Lab Results Component Value Date/Time WBC 6.7 03/17/202546 HGB 10.0 (L) 03/17/202546 HGB 11.8 (L) 03/13/2025 0902 HCT 33.8 (L) 03/17/202546 PLT 407 03/17/202546 NA 141 03/17/202546 K 3.9 03/17/202546 CL 104 03/17/202546 CO2 25 03/17/202546 BUN 22 03/17/202546 CREATININE 3.25 (H) 03/17/202546 CREATININE 9.99 (H) 10/27/2019 05 CALCIUM 9.6 03/17/202546 PHOS 2.6 02/23/202531 IV Drips and Rate/Dose Continuous Meds[3] Safety - Before each treatment: Dialysis Machine No.: [id number] RO Machine Number: [id number] Dialyzer Lot No.: [id number] Tubing Lot Number: [id number] All Connections Secure: Yes Venous Parameters Set: Yes Arterial Parameters Set: Yes NS Bag: Yes Saline Line Double Clamped: Yes Dialyzer: Nipro Prime Volume (mL): 200 mL RO Machine Number: [id number] RO Machine Log Sheet Completed: Yes Machine Alarm Self Test: Completed, Passed (03/17/25 0803) Air Foam Detector: Tested, Proper Function, pH Reading Extracorporeal Circuit Tested for Integrity: Yes Machine Conductivity: 13.6 Manual Conductivity: 13.6 Manual Ph: 7 Bleach Test (Neg): Yes Bath Temperature: 36 C (96.8 F) Conductivity Meter Serial #: [id number] Machine Functioning Alarm Free? Yes Dialysis Bath: K+ (Potassium): 2 Ca+ (Calcium): 2.5 Na+ (Sodium): 135 HCO3 (Bicarb): 35 Chlorine Testing - Before each treatment and every 4 hours: Time On: 08 Time Off: 1141 Treatment Goal: 2L Weight [...] Other (Comment) (to inform patient arrival from [place] emergency room and need for orders) Provider [...] Active Problem List Diagnosis Anemia Paroxysmal A-fib ([facility]) ([facility]) HTN (hypertension) ESRD on hemodialysis ([facility]) ([facility]) IgA nephropathy determined by biopsy of [...] to breakdown of skin (HCC) Tracheostomy dependence ([facility]) Leukocytosis Decubitus ulcer of sacral region, unstageable (HCC) Pneumonia of both lungs due to methicillin susceptible Staphylococcus aureus (MSSA) ([facility]) Sacral osteomyelitis (CMS/HCC) ([facility]) Acute respiratory failure with hypoxia ([facility]) [J96.01] Tracheostomy care ([facility]) [Z43.0] 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[facility]) nursing home (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 Complication of tracheostomy (CMS/HCC) ([facility]) BRBPR (bright red blood per rectum) Hemoptysis SOB (shortness of breath) Moderate malnutrition (CMS/HCC) ([facility]) [3] heparin, 5-30 Units/kg/hr T [facility] 03-16-2025 Plan of care note Problem: Knowledge Deficit Goal: Patient/family/caregiver demonstrates understanding of disease process, treatment plan, medications, and discharge instructions Outcome: Progressing Problem: Potential for Compromised Skin Integrity Goal: Nutritional status is improving Outcome: Progressing T [facility] 03-16-2025 Plan of care note Problem: [...] Interventions Goal: Assess Nutritional Intake Outcome: Progressing [facility] 03-16-2025 Note Formatting of this n ote might be different from the original. Care Management Progress Note Going to dialysis today. Refusing surgery for gangrenous toes. Anticipate discharge back to [facility] soon. . Length of Stay (Days): 3 GMLOS: 3.9 [facility] 03-16-2025 Note Formatting of this n ote might be different from the original. Care Management Progress Note Going to dialysis today. Refusing surgery for gangrenous toes. Anticipate discharge back to [facility]CF soon. . Length of Stay (Days): 3 GMLOS: 3.9 [facility] 03-16-2025 Note Care Management Prog ress Note Going to dialysis today. Refusing surgery for gangrenous toes. Anticipate discharge back to [facility]CF soon. . Length of Stay (Days): 3 GMLOS: 3.9 [facility] 03-15-2025 Note Formatting of this n ote might be different from the original. ELIA reviewed chart. Copy of DPOA found in electronic chart naming Omar connell as agent. Care Management Return to Hospital Readmission questionnaire- N/A- pt form ECF. [facility] 03-15-2025 Note Formatting of this n ote might be different from the original. ELIA reviewed chart. Copy of DPOA found in electronic chart naming Omar connell as agent. Care Management Return to Hospital Readmission questionnaire- N/A- pt form [facility]CF. [facility] 03-15-2025 Note SW reviewed chart. Copy of DPOA found in electronic chart naming son, Omar as agent. Care Management Return to Hospital Readmission questionnaire- N/A- pt form [facility]CF. [facility] 03-15-2025 Consult note Associated Order (s): Inpatient consult to Vascular Surgery--[facility]; Gangrenous toes noted on first 4 toes on left lower extremity, please evaluate Images from the original note were not included. Inpatient consult [facility]; Gangrenous toes noted on first [...] 0 min Stress: Stress Concern Present (02/21/2025) [employer] - Occupational Stress Questionnaire Feeling of Stress : To some extent Social Connections: Unknown (02/21/2025) Social Connection and Isolation Panel [NHANES] Frequency of Communication with Friends and Family: More than three times a week Frequency of Social Gatherings with Friends and Family: Patient declined Attends Hinduism Services: Patient declined Active Member of Clubs [...] Department of Surgery General Surgery Resident Pager: [phone] PAGING / [facility] Secure Chat: From -6p (- weekends): [facility] [employer] Secure Chat (FIRST) or Pager above (EMERGENT/Second) From 6p-6a (- weekends): Find resident physician under [facility] Surgery - General - Surgical ICU Patients: Select 'ACH GEN SURG Night Float ICU RES' or "Page [phone]" - Surgical Floor Patients: Select 'ACH GEN SURG Night Float Floor RES' or "Page x1319" Disclaimers: INFORMED CONSENT: The nature and purpose [...] This note may have been dictated using [email or web address] Edition and/or [employer] Voice Recognition Feature. The document was proofread; however, unrecognized voice recognition mechanical process engineer errors may be present. [1] Past Medical History: Diagnosis Date Acute renal failure (ARF) ([facility]) 10/19/2019 Anemia 12/30/2021 Calcification of abdominal aorta ([facility]) 10/08/202309/[address] abd Diverticulosis 10/08/2023 ESRD [place] hemodialysis [place] ([facility]) 10/26/2019 Hemodialysis patient [place] ([facility]) HTN (hypertension) 12/01/2022 Hypertension IgA nephropathy IgA nephropathy determined by biopsy of kidney 10/26/2019 Missed vaccination due to patient refusal 10/08/2023 Has a number of non-scientific based beliefs which interfere with his understanding and acceptance of the medical benefit of vaccination. Nonrheumatic aortic valve stenosis 10/08/2023 Paroxysmal A-fib ([facility]) ([facility]) 08/18/2023 Tobacco abuse 10/08/2023 [2] Past Surgical History: Procedure Laterality Date APPENDECTOMY CARDIAC CATHETERIZATION N/A 10/09/2024 Performed by Bob Watson MD at [facility] Cardiac Cath/EP Lab CARDIAC CATHETERIZATION Bilateral 11/01/2024 Performed by Bob Watson MD at [facility] Cardiac Cath/EP Lab CARDIAC CATHETERIZATION N/A 11/01/2024 Performed by Bob Watson MD at [facility] Cardiac Cath/EP Lab COLONOSCOPY N/A 01/24/2025 Performed by Chadd Davis MD at [facility] ENDOSCOPY FISTULAGRAM (HISTORICAL) Left 09/15/2021 LEFT UPPER ARM HX AV FISTULA CREATION IR EMBOLIZATION 10/14/2024 IR EMBOLIZATION 10/14/2024 [facility] SPECIAL PROCEDURES IR FISTULAGRAM 08/07/2022 IR FISTULAGRAM 08/07/2022 [facility] IR IMAGING TONSILLECTOMY (HISTORICAL) [3] [4] PRN [...] planning if and when patient is willing. [facility]25 Consult note Associated Order (s): Inpatient consult to Vascular Surgery--[facility]; Gangrenous toes noted on first 4 toes on left lower extremity, please evaluate Images from the original note were not included. Inpatient consult to Vascular Surgery--[facility]; Gangrenous toes noted on first 4 toes on left lower extremity, please evaluate Consult performed by: Earlene Ryoal MD Consult ordered by: Barb Dawkins MD [...] 0 min Stress: Stress Concern Present (02/21/2025) [employer] - Occupational Stress Questionnaire Feeling of Stress : To some extent Social Connections: Unknown (02/21/2025) Social Connection and Isolation Panel [NHANES] Frequency of Communication with Friends and Family: More than three times a week Frequency of Social Gatherings with Friends and Family: Patient declined Attends Hinduism Services: Patient declined Active Member of Clubs [...] Department of Surgery General Surgery Resident Pager: [phone] PAGING / [facility] Secure Chat: From 6a-6p (-s): Epic Secure Chat (FIRST) or Pager above [...] This note may have been dictated using [employer] Practice Edition and/or [employer] Voice Recognition Feature. The document was proofread; however, unrecognized voice recognition mechanical process engineer errors may be present. [1] Past Medical History: Diagnosis Date Acute renal failure (ARF) ([facility]) 10/19/2019 Anemia 12/30/2021 Calcification of abdominal aorta ([facility]) 10/08/202309/[address] abd Diverticulosis 10/08/2023 ESRD [place] hemodialysis [place] ([facility]) 10/26/2019 Hemodialysis patient [place] ([facility] [facility]) HTN (hypertension) 12/01/2022 Hypertension IgA nephropathy IgA nephropathy determined by biopsy of kidney 10/26/2019 Missed vaccination due to patient refusal 10/08/2023 Has a number of non-scientific based beliefs which interfere with his understanding and acceptance of the medical benefit of vaccination. Nonrheumatic aortic valve stenosis 10/08/2023 Paroxysmal A-fib ([facility] ([facility]) 08/18/2023 Tobacco abuse 10/08/2023 [2] Past Surgical History: Procedure Laterality Date APPENDECTOMY CARDIAC CATHETERIZATION N/A 10/09/2024 Performed by Bob Watson MD at [facility] Cardiac Cath/EP Lab CARDIAC CATHETERIZATION Bilateral 11/01/2024 Performed by Bob Watson MD at [facility] Cardiac Cath/EP Lab CARDIAC CATHETERIZATION N/A 11/01/2024 Performed by Bob Watson MD at [facility] Cardiac Cath/EP Lab COLONOSCOPY N/A 01/24/2025 Performed by Chadd Davis MD at [facility] ENDOSCOPY FISTULAGRAM (HISTORICAL) Left 09/15/2021 LEFT UPPER ARM HX AV FISTULA CREATION IR EMBOLIZATION 10/14/2024 IR EMBOLIZATION 10/14/2024 [facility] SPECIAL PROCEDURES IR FISTULAGRAM 08/07/2022 IR [...] MS, RD, LD Clinical Dietitian Contact: or [employer] Chat (dial *[phone] from hospital phone) Associated Order(s): IP CONSULT [...] ascites and omental edema in upper abdomen.) Professional Athlete Strength: Not Performed Chief Complaint Patient presents with Shortness of Breath [facility]. Pt was starting dialysis and [...] On: Kcal/kg Weight Used for Energy Requirements: [place] Weight for Energy Calculation (kg): 75 kg Total Energy Requirements (kcals/day): 7883-5842 (25-30 kcals/kg) Weight Used for Protein Requirements: [place] Weight in Kg Used for Protein Requirements: [...] 2.0 HEPATIC: Recent Labs 03/13/25 0945 03/15/25 043 AST 37* 49* ALT 7 14 BILITOT 0.5 0.8 ALKPHOS 122 201* CBC: Recent Labs 03/13/25 0902 03/15/25 043 WBC 8.0 6.7 HGB 11.8* 8.5* 9.2* HCT 28.4* 30.1* MCV 99.3* 99.7* PLT 392 392 Lab Results Component Value Date EFBP 40 (A) 10/04/2024 Lab Results Component Value Date LDLCALC 109 (H) 03/14/2025 HDL 30 (L) 03/14/2025 CHOL 159 03/14/2025 TRIG 98 03/14/2025 Lab Results Component Value Date TSH 6.88 (H) 03/13/2025 FREET4 0.89 03/15/2025 WAIIIERL40 959 (H) 10/22/2019 FOLATE 9.2 10/22/2019 FERRITIN [...] for updated dry wt - per nephro) [place] Body Weight (lbs) (Calculated): 166 lbs [place] Body Weight (Kg) (Calculated): 75 kg % [place] Body Weight (Calculated): 88.6 % BMI (kg/m2) [...] Yasemin Ceron MS, RD, LD Contact: or [employer] (dial *[phone] from hospital phone) [1] Past Medical History: Diagnosis Date Acute renal failure (ARF) (HCC) 10/19/2019 Anemia 12/30/2021 Calcification of abdominal aorta (HCC) 10/08/202309/[address] abd Diverticulosis 10/08/2023 ESRD [place] hemodialysis [place] ([facility]) 10/26/2019 Hemodialysis patient ([facility] ([facility]) HTN (hypertension) 12/01/2022 Hypertension IgA nephropathy IgA nephropathy determined by biopsy of kidney 10/26/2019 Missed vaccination due to patient refusal 10/08/2023 Has a number of non-scientific based beliefs which interfere with his understanding and acceptance of the medical benefit of vaccination. Nonrheumatic aortic valve stenosis 10/08/2023 Paroxysmal A-fib ([facility] ([facility]) 08/18/2023 Tobacco abuse 10/08/2023 [2] Past Surgical History: Procedure Laterality Date APPENDECTOMY CARDIAC CATHETERIZATION N/A 10/09/2024 Performed by Bob Watson MD at [facility] Cardiac Cath/EP Lab CARDIAC CATHETERIZATION Bilateral 11/01/2024 Performed by Bob Watson MD at [facility] Cardiac Cath/EP Lab CARDIAC CATHETERIZATION N/A 11/01/2024 Performed by Bob Watson MD at [facility] Cardiac Cath/EP Lab COLONOSCOPY N/A 01/24/2025 Performed by Chadd Davis MD at [facility] ENDOSCOPY FISTULAGRAM (HISTORICAL) Left 09/15/2021 LEFT UPPER ARM HX AV FISTULA CREATION IR EMBOLIZATION 10/14/2024 IR EMBOLIZATION 10/14/2024 [facility] SPECIAL PROCEDURES IR FISTULAGRAM 08/07/2022 IR FISTULAGRAM 08/07/2022 [facility] IR IMAGING TONSILLECTOMY (HISTORICAL) [3] Lidocaine, 1 patch, Topical, Daily metoprolol tartrate, 25 mg, Oral, q6h pantoprazole, 40 mg, Oral, BID AC sevelamer carbonate, 800 mg, Oral, TID WC sodium zirconium cyclosilicate, 5 g, Oral, Daily warfarin, 2.5 mg, Oral, Once [4] [facility] Consult Note Consults MELO Jun is [...] 0 min Stress: Stress Concern Present (02/21/2025) [employer] [place] [facility] Occupational [employer] - Occupational Stress Questionnaire Feeling of Stress : To some extent Social Connections: Unknown (02/21/2025) Social Connection and Isolation Panel [NHANES] Frequency of Communication with Friends and Family: More than three times a week Frequency of Social Gatherings with Friends and Family: Patient declined Attends Hinduism Services: Patient declined Active Member of Clubs [...] and sacral wound. Please message me through goBramble chat with any questions or concerns. [place] Nicole MD 03/14/2025 10:43 AM [facility] [address] [place] [address], [address] [place] [id number] Office: [phone] [1] Past Medical History: Diagnosis Date Acute renal failure (ARF) ([facility]) 10/19/2019 Anemia 12/30/2021 Calcification of abdominal aorta ([facility]) 10/08/202309/[address] abd Diverticulosis 10/08/2023 ESRD on hemodialysis [place] ([facility]) 10/26/2019 Hemodialysis patient [place] ([facility]) HTN (hypertension) 12/01/2022 Hypertension IgA nephropathy IgA nephropathy determined by biopsy of kidney 10/26/2019 Missed vaccination due to patient refusal 10/08/2023 Has a number of non-scientific based beliefs which interfere with his understanding and acceptance of the medical benefit of vaccination. Nonrheumatic aortic valve stenosis 10/08/2023 Paroxysmal A-fib ([facility]) ([facility]) 08/18/2023 Tobacco abuse 10/08/2023 [2] Family [...] Rubi Sanon MD, 800 mg at 03/13/25 181 sodium zirconium cyclosilicate (Lokelma) packet 5 g, [...] 3350 Associated Order(s): IP CONSULT TO CARDIOLOGY [facility] Cardiology /Electrophysiology Consult Note Reason for Consult/Chief Complaint: Volume overload, afib rvr Referring provider: Dr Kidd 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 He recently was at [facility] for Klebsiella pneumonia, hemoptysis and lung abscess [...] of Cardiovascular Disease, Division of Heart Failure [facility] 3:25 PM 03/14/25 Associated Order(s): INPATIENT CONSULT TO WOUND CARE PROVIDERS Images from the original note were not included. [facility] Wound VAC CONSULT Note Jun Snyder AGE: [...] apply Betadine and allow to dry, leave GAS DISPATCHER daily and PRN Nutritional support Wound Care to follow Recommend to follow up at [facility] wound care center after hospital discharge. Any [...] History: Diagnosis Date Acute renal failure (ARF) ([facility]) 10/19/2019 Anemia 12/30/2021 Calcification of abdominal aorta ([facility]) 10/08/202309/[address] abd Diverticulosis 10/08/2023 ESRD on hemodialysis ([facility]) ([facility]) 10/26/2019 Hemodialysis patient [place] ([facility]) HTN (hypertension) 12/01/2022 Hypertension IgA nephropathy IgA nephropathy determined by biopsy of kidney 10/26/2019 Missed vaccination due to patient refusal 10/08/2023 Has a number of non-scientific based beliefs which interfere with his understanding and acceptance of the medical benefit of vaccination. Nonrheumatic aortic valve stenosis 10/08/2023 Paroxysmal A-fib ([facility]) ([facility]) 08/18/2023 Tobacco abuse 10/08/2023 [2] Past Surgical History: Procedure Laterality Date APPENDECTOMY CARDIAC CATHETERIZATION N/A 10/09/2024 Performed by Bob Watson MD at [facility] Cardiac Cath/EP Lab CARDIAC CATHETERIZATION Bilateral 11/01/2024 Performed by Bob Watson MD at [facility] Cardiac Cath/EP Lab CARDIAC CATHETERIZATION N/A 11/01/2024 Performed by Bob Watson MD at [facility] Cardiac Cath/EP Lab COLONOSCOPY N/A 01/24/2025 Performed by Chadd Davis MD at [facility] ENDOSCOPY FISTULAGRAM (HISTORICAL) Left 09/15/2021 LEFT UPPER ARM HX AV FISTULA CREATION IR EMBOLIZATION 10/14/2024 IR EMBOLIZATION 10/14/2024 [facility] SPECIAL PROCEDURES IR FISTULAGRAM 08/07/2022 IR [...] 4:44 PM EDT documented in this encounter [facility] 03-15-2025 Note Patient currently of f unit, will attempt smoking cessation counseling at a later date. [facility] 03-15-2025 Nurse Note Patient Name: Jun Snyder Patient : 1965 Acct: [id number] Date of Admission: 03/13/2025 [facility] [...] - Before each treatment: Dialysis Machine No.: [id number] Machine Number: [id number] Dialyzer Lot No.: [id number] Tubing Lot Number: [id number] All Connections Secure: Yes Venous Parameters Set: Yes Arterial Parameters Set: Yes NS Bag: Yes Saline Line Double Clamped: Yes Dialyzer: Nipro Prime Volume (mL): 200 mL RO Machine Number: [id number] RO Machine Log Sheet Completed: Yes Machine Alarm Self Test: Completed, Passed (03/15/25 1215) Air Foam Detector: Tested, Proper Function, pH Reading Extracorporeal Circuit Tested for Integrity: Yes Machine Conductivity: 13.8 Manual Conductivity: 13.7 Manual Ph: 7 Bleach Test (Neg): Yes Bath Temperature: 36 C (96.8 F) Conductivity Meter Serial #: [id number] Machine Functioning Alarm Free? Yes Dialysis Bath: K+ (Potassium): 2 Ca+ (Calcium): 2.5 Na+ (Sodium): 135 HCO3 (Bicarb): 35 Chlorine Testing - Before each treatment and every 4 hours: Time On: 1237 Time Off: 1537 Treatment Goal: 1L Weight Height: 177.8 cm (5' 10") (03/14/25 1617) Weight: 65 kg (143 lb 4.8 oz) (03/15/25 07) BMI (Calculated): 20.56 (03/15/25 07) 1st check: less than 0.1 ppm at: [...] Other (Comment) (to inform patient arrival from [place] [facility] and need for orders) Provider [...] Active Problem List Diagnosis Anemia Paroxysmal A-fib ([facility]) ([facility]) HTN (hypertension) ESRD on hemodialysis [place] ([facility]) IgA nephropathy determined by biopsy of kidney Diverticulosis Nonrheumatic aortic valve stenosis Calcification of abdominal aorta ([facility]) Missed vaccination due to patient refusal Tobacco abuse Alcohol use disorder in remission Atrial flutter, unspecified type ([facility]) RSV (acute bronchiolitis due to respiratory syncytial virus) Aortic stenosis Upper GI bleed S/P AVR Acute hypoxic respiratory failure ([facility]) Acute encephalopathy Pneumoperitoneum Gastric ulceration Severe malnutrition ([facility]) ([facility]) Pleural effusion Peritonitis due to fungus ([facility]) History of abdominal surgery Leg DVT (deep venous thromboembolism), acute, left ([facility]) 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, 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 of skin ([facility]) Tracheostomy dependence ([facility]) Leukocytosis Decubitus ulcer of sacral region, unstageable (HCC) Pneumonia of both lungs due to methicillin susceptible Staphylococcus aureus (MSSA) ([facility]) Sacral osteomyelitis ([facility]/HCC) ([facility]) Acute respiratory failure with hypoxia ([facility]) [J96.01] Tracheostomy care ([facility]) [Z43.0] 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[facility]) nursing home (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 Complication of tracheostomy (CMS/HCC) ([facility]) BRBPR (bright red blood per rectum) Hemoptysis SOB (shortness of breath) Moderate malnutrition ([facility]) ([facility]) [3] [facility] 03-15-2025 Consult note Associated Order (s): IP CONSULT TO DIETITIAN See dietitian evortega dated 03/14/25. Pt tolerating diet well, was started on ensure plus HP BID during admission. Will continue to monitor labs, meds, po intakes and/or enteral nutrition tolerance, skin integrity, wt trends, and overall nutrition status - RD to follow weekly Yasemin Ceron MS, RD, LD Clinical Dietitian Contact: or [employer] Chat (dial *[phone] from hospital phone) [facility] 03-15-2025 Plan of care note Problem: [...] Interventions Goal: Assess Nutritional Intake Outcome: Progressing [facility] 03-15-2025 Note Formatting of this n ote might be different from the original. Care Management Progress Note Cardiology following. Pt in A flutter, trying rate control. Has wound vac on sacral area. Pt is refusing surgery. When stable is a bed hold at [facility]. . Length of Stay (Days): 2 GMLOS: No GMLOS Documented [facility] 03-15-2025 Note Formatting of this n ote might be different from the original. Care Management Progress Note Cardiology following. Pt in A flutter, trying rate control. Has wound vac on sacral area. Pt is refusing surgery. When stable is a bed hold at [facility]. . Length of Stay (Days): 2 GMLOS: No GMLOS Documented [facility] 03-15-2025 Nurse Note Wound Care consulted for Pressure Injury Prevention. Pt's Kee score= 14 on 03/13 Pt's pressure points assessed. Pt's Heels, Back, Elbows, Occiput and ears all intact. [place] and healed area noted to occiput. Pt moving lower extremities well in bed against gravity. Pt currently followed by Wound MECHANICAL TEST TECHNICIAN group for wounds to left toes 1-4 and sacrum with wound vac in place. For left toes, sacrum, and sacral wound vac assessments and treatment plan, please see Wound/Ostomy MECHANICAL TEST TECHNICIAN progress notes. Instructed pt on pressure injury prevention and importance of turning/postioning every 2hrs while in bed and every 15 min while sitting in chair. Instructed on use and care of waffle chair cushion. Verbalized understanding. Prevention Measures in place, including: [place] sheet with pillows/wedges, Heels elevated off bed on pillows, Zinc/Moisture Barrier ointment (obtained), Waffle chair cushion (obtained for pt). Skin Care precaution order set in place. Dietitian consult order placed d/t wounds. PT/OT consult in place. Will continue to follow pt. Please Vocera for any questions or concerns. Yari Pelletier RN T [facility] 03-15-2025 Plan of care note Problem: Knowledge Deficit Goal: Patient/family/caregiver demonstrates understanding of disease process, treatment plan, medications, and discharge instructions Outcome: Progressing Problem: Problem Interventions Goal: Assess Nutritional Intake Outcome: Progressing T [facility] 03-14-2025 Plan of care note Problem: [...] Goal: Assess Nutritional Intake Outcome: Progressing T [facility] 03-14-2025 Consult note Associated Order (s): [...] ascites and omental edema in upper abdomen.) Professional Athlete Strength: Not Performed Chief Complaint Patient presents with Shortness of Breath [facility]. Pt was starting dialysis and [...] On: Kcal/kg Weight Used for Energy Requirements: [place] Weight for Energy Calculation (kg): 75 kg Total Energy Requirements (kcals/day): 8562-7515 (25-30 kcals/kg) Weight Used for Protein Requirements: [place] Weight in Kg Used for Protein Requirements: [...] TSH 6.88 (H) 03/13/2025 FREET4 0.89 03/15/2025 [id number] 959 (H) 10/22/2019 FOLATE 9.2 10/22/2019 FERRITIN [...] for updated dry wt - per nephro) [place] Body Weight (lbs) (Calculated): 166 lbs [place] Body Weight (Kg) (Calculated): 75 kg % [place] Body Weight (Calculated): 88.6 % BMI (kg/m2) [...] Discharge Planning: Too soon to determine Yasemin Osmany MS, RD, LD Contact: or [employer] (dial *[phone] from hospital phone) [1] Past Medical History: Diagnosis Date Acute renal failure (ARF) ([facility]) 10/19/2019 Anemia 12/30/2021 Calcification of abdominal aorta ([facility]) 10/08/202309/[address] abd Diverticulosis 10/08/2023 [place] hemodialysis [place] ([facility]) 10/26/2019 Hemodialysis patient [place] ([facility]) HTN (hypertension) 12/01/2022 Hypertension IgA nephropathy IgA nephropathy determined by biopsy of kidney 10/26/2019 Missed vaccination due to patient refusal 10/08/2023 Has a number of non-scientific based beliefs which interfere with his understanding and acceptance of the medical benefit of vaccination. Nonrheumatic aortic valve stenosis 10/08/2023 Paroxysmal A-fib ([facility]) ([facility]) 08/18/2023 Tobacco abuse 10/08/2023 [2] Past Surgical History: Procedure Laterality Date APPENDECTOMY CARDIAC CATHETERIZATION N/A 10/09/2024 Performed by Bbo Watson MD at [facility] Cardiac Cath/EP Lab CARDIAC CATHETERIZATION Bilateral 11/01/2024 Performed by Bob Watson MD at [facility] Cardiac Cath/EP Lab CARDIAC CATHETERIZATION N/A 11/01/2024 Performed by Bob Watson MD at [facility] Cardiac Cath/EP Lab COLONOSCOPY N/A 01/24/2025 Performed by Chadd Davis MD at [facility] ENDOSCOPY FISTULAGRAM (HISTORICAL) Left 09/15/2021 LEFT UPPER ARM HX AV FISTULA CREATION IR EMBOLIZATION 10/14/2024 IR EMBOLIZATION 10/14/2024 [facility] SPECIAL PROCEDURES IR FISTULAGRAM 08/07/2022 IR FISTULAGRAM 08/07/2022 [facility] IR IMAGING TONSILLECTOMY (HISTORICAL) [3] Lidocaine, 1 patch, Topical, Daily metoprolol tartrate, 25 mg, Oral, q6h pantoprazole, 40 mg, Oral, BID AC sevelamer carbonate, 800 mg, Oral, TID WC sodium zirconium cyclosilicate, 5 g, Oral, Daily warfarin, 2.5 mg, Oral, Once [4] [facility] 03-14-2025 Hospital Discharg e steven Jones RN - 03/14/2025 2:19 PM EDT My Heart Failure Action Plan Use the below chart as a guide for daily symptom monitoring after you obtain your morning weight. My Movement Therapist: Dr. Alyssa West [facility] at [facility] [phone] My Analyst: [facility] [address] [place], [place] [id number] My Diagnosis: Heart failure with improved ejection [...] 5 pounds in a week Call your Analyst/Dialysis center!! My Diet Goal: General diet recommendations [...] Admitting Physician: Rubi Sanon MD PCP: Leilani Han Discharging Nurse: Discharging Hospital Unit/Room#: [id number]/[id number] A Discharging Unit Phone Number: Emergency Contact: Extended Emergency Contact Information Primary Emergency Contact: Omar Snyder Mobile Relation: Child Secondary Emergency Contact: Toma Mcneil Mobile Relation: Partner Past Surgical History: Past Surgical History: Procedure Laterality Date APPENDECTOMY CARDIAC CATHETERIZATION N/A 10/09/2024 Performed by Bob Watson MD at [facility] Cardiac Cath/EP Lab CARDIAC CATHETERIZATION Bilateral 11/01/2024 Performed by Bob Watson MD at [facility] Cardiac Cath/EP Lab CARDIAC CATHETERIZATION N/A 11/01/2024 Performed by Bob Watson MD at [facility] Cardiac Cath/EP Lab COLONOSCOPY N/A 01/24/2025 Performed by Chadd Davis MD at [facility] ENDOSCOPY FISTULAGRAM (HISTORICAL) Left 09/15/2021 LEFT UPPER ARM HX AV FISTULA CREATION IR EMBOLIZATION 10/14/2024 IR EMBOLIZATION 10/14/2024 [facility] SPECIAL PROCEDURES IR FISTULAGRAM 08/07/2022 IR [...] (CMS/HCC) (HCC) Acute respiratory failure with hypoxia ([facility]) [J96.01] Tracheostomy care ([facility]) [Z43.0] 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[facility]) nursing home (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 Complication of tracheostomy (CMS/HCC) (HCC) Hemoptysis Moderate malnutrition (CMS/HCC) ([facility]) Anemia Aortic stenosis Upper GI bleed S/P AVR Acute hypoxic respiratory failure ([facility]) Acute encephalopathy Pneumoperitoneum BRBPR (bright red [...] 03/21/25 155 lb (70.3 kg) Mental Status: {[facility] Patient Mental Status:50178} IV Access: {[facility] IV Access:92977} Nursing Mobility/ADLs: Walking {CHRISTY ADL:13206::"Independent"} Transfer {CHRISTY ADL:25208::"Independent"} Bathing {CHRISTY ADL:94669::"Independent"} Dressing {CHRISTY ADL:62839::"Independent"} Toileting {CHRISTY ADL:02656::"Independent"} Feeding {CHRISTY ADL:57098::"Independent"} Jewelry Making Instructor {CHRISTY ADL:93851::"Independent"} Med Delivery {yes/no:34544} Wound Care Documentation and Therapy: Wound/Incision 11/13/24 Pressure Injury Sacrum (Active) Site Assessment Red;[place] 03/21/25 0402 Mahnaz-Wound Assessment [place] 03/13/251999 Drainage Description Sanguineous 03/13/251999 Odor Malodorous/putrid 03/13/251999 Drainage Amount Scant 03/21/25 0402 Treatments Cleansed;Site care 03/14/25 0555 Primary Dressing Wet-dry 03/20/25 0800 Secondary Dressing ABD 03/20/25 0800 Dressing Status Clean, dry & intact 03/21/25 0800 State of Healing Epithelialized 03/13/251999 Number of days: 127 Wound/Incision 11/15/24 Traumatic Arm Anterior;Left;Upper (Active) Number of days: 126 Wound/Incision 11/15/24 Other (comment) Toe - third Anterior;Left (Active) Site Assessment Black;Painful 03/21/25 0402 Mahnaz-Wound Assessment [place] 03/21/25 0402 Odor None 03/18/25 1500 Drainage [...] Number of days: 7 Elimination: Continence: Bowel: {yes/no:63054} Bladder: {yes/no:85270} Urinary Catheter: {ROSENDO Urinary Catheter:01419} Colostomy/Ileostomy/Ileal Conduit: {YES / NO:} Date of Last BM: Intake/Output Summary (Last 24 hours) at 03/21/2025 1206 Last data filed at 03/20/2025 1523 Gross per 24 hour Intake 300 ml Output -- Net 300 ml I/O last 3 completed shifts: In: 1338.9 (19 mL/kg) [P.O.:240; I.V.:1098.9 (15.6 mL/kg)] Out: - (0 mL/kg) Weight: 70.3 kg Safety Concerns: {ROSENDO Safety Concerns:12593} Impairments/Disabilities: {ROSENDO Impairments/Disabilities:10781} Nutrition Therapy: Current Nutrition Therapy: {ROSENDO Diet List:81422} Routes of Feeding: {routes of feedin} Liquids: {liquid consistency:63369} Daily Fluid Restriction: {daily fluid restriction:04257} Last Modified Barium Swallow with Video (Video Swallowing Test): {done not done:88699} Treatments at the Time of Hospital Discharge: Respiratory Treatments: Oxygen Therapy: {Therapy; copd oxygen:27359} Ventilator: {ROSENDO Ventilator:72274} Rehab Therapies: {GEN THERAPY DISCIPLINE SCAL:6017959} Weight Bearing Status/Restrictions: {POD WEIGHT BEARIN} Other Medical Equipment (for information only, NOT a DME order): {Assistive Devices DME:83751} Other Treatments: Patient's personal belongings (please select all that are sent with patient): {ROSENDO Patient Belongings:[id number]} RN SIGNATURE: {E-signature:[id number]} CASE MANAGEMENT/SOCIAL WORK SECTION Inpatient Status Date: 02-10-25 Discharging to Facility/ Agency Name: [facility] Address:[address] [place] [address] Fax: Dialysis Facility (if applicable) Name: Address: Dialysis Schedule: Phone: Fax: Insurance Adviser/Barrel Drum Cutter signature: ICIAN SECTION Name: Jun Snyder Prognosis: fair Condition at Discharge: stable Rehab Potential (if transferring to Rehab): fair Recommended Labs or Other Treatments After Discharge: none The individual is being admitted to a nursing facility directly from an [facility] or a unit of a [facility] that is not operated by or licensed by [facility] under section 5119.14 or 5160-3-15.1 5 The [...] H&P PHYSICIAN SIGNATURE: documented in this encounter [facility] 03-14-2025 Nurse Note Patient Name: Jun Snyder Patient : 1965 Acct: [id number] Date of Admission: 03/13/2025 [facility] [...] - Before each treatment: Dialysis Machine No.: [id number] Machine Number: [id number] Dialyzer Lot No.: [id number] Tubing Lot Number: [id number] All Connections Secure: Yes Venous Parameters Set: Yes Arterial Parameters Set: Yes NS Bag: Yes Saline Line Double Clamped: Yes Dialyzer: Nipro Prime Volume (mL): 200 mL RO Machine Number: [id number] RO Machine Log Sheet Completed: Yes Machine Alarm Self Test: Completed, Passed (03/14/25 1135) Air Foam Detector: Tested, Proper Function, pH Reading Extracorporeal Circuit Tested for Integrity: Yes Machine Conductivity: 13.7 Manual Conductivity: 13.6 Manual Ph: 7 Bleach Test (Neg): Yes Bath Temperature: 36 C (96.8 F) Conductivity Meter Serial #: [id number] Machine Functioning Alarm Free? Yes Dialysis Bath: K+ (Potassium): 3 Ca+ (Calcium): 2.5 Na+ (Sodium): 135 HCO3 (Bicarb): 35 Chlorine Testing - Before each treatment and every 4 hours: Time On: 1237 Time Off: 1537 Treatment Goal: 1L Weight Height: 177.8 cm (5' 10") (03/13/25 1654) Weight: 66.8 kg (147 lb 3.2 oz) (03/14/25 0323) BMI (Calculated): 21.12 (03/14/25 0323) 1st check: less than 0.1 ppm at: [...] Other (Comment) (to inform patient arrival from [place] [facility] room and need for orders) Provider [...] Active Problem List Diagnosis Anemia Paroxysmal A-fib ([facility]) ([facility]) HTN (hypertension) ESRD on hemodialysis ([facility]) ([facility]) IgA nephropathy determined by biopsy of kidney Diverticulosis Nonrheumatic aortic valve stenosis Calcification of abdominal aorta ([facility]) Missed vaccination due to patient refusal Tobacco abuse Alcohol use disorder in remission Atrial flutter, unspecified type (HCC) RSV (acute bronchiolitis due to respiratory syncytial virus) Aortic stenosis Upper GI bleed S/P AVR Acute hypoxic respiratory failure ([facility]) Acute encephalopathy Pneumoperitoneum Gastric ulceration Severe malnutrition ([facility]) ([facility]) Pleural effusion Peritonitis due to fungus (HCC) History of abdominal surgery Leg DVT (deep venous thromboembolism), acute, left (HCC) 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, 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) Tracheostomy dependence (HCC) Leukocytosis Decubitus ulcer of sacral region, unstageable (HCC) Pneumonia of both lungs due to methicillin susceptible Staphylococcus aureus (MSSA) ([facility]) Sacral osteomyelitis ([facility]/HCC) (HCC) Acute respiratory failure with hypoxia ([facility]) [J96.01] Tracheostomy care ([facility]) [Z43.0] 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[facility]) nursing home (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 Complication of tracheostomy ([facility]) ([facility]) BRBPR (bright red blood per rectum) Hemoptysis SOB (shortness of breath) [3] [facility] 03-14-2025 Consult note Formatting of th is note is different from the original. [facility] Nephrology Consult Note Consults HPI Jun is a 59-year-old male with end-stage [...] 0 min Stress: Stress Concern Present (02/21/2025) [employer] [place] [employer] - Occupational Stress Questionnaire Feeling of Stress : To some extent Social Connections: Unknown (02/21/2025) Social Connection and Isolation Panel [NHANES] Frequency of Communication with Friends and Family: More than three times a week Frequency of Social Gatherings with Friends and Family: Patient declined Attends Hinduism Services: Patient declined Active Member of Clubs [...] and sacral wound. Please message me through goBramble chat with any questions or concerns. Wellington Nicole MD 03/14/2025 10:43 AM [facility] [address] [place] [address], [address] [place] [id number] Office: [phone] [1] Past Medical History: Diagnosis Date Acute renal failure (ARF) ([facility]) 10/19/2019 Anemia 12/30/2021 Calcification of abdominal aorta ([facility]) 10/08/202309/[address] abd Diverticulosis 10/08/2023 ESRD on hemodialysis ([facility]) ([facility]) 10/26/2019 Hemodialysis patient ([facility]) ([facility]) HTN (hypertension) 12/01/2022 Hypertension IgA nephropathy IgA nephropathy determined by biopsy of kidney 10/26/2019 Missed vaccination due to patient refusal 10/08/2023 Has a number of non-scientific based beliefs which interfere with his understanding and acceptance of the medical benefit of vaccination. Nonrheumatic aortic valve stenosis 10/08/2023 Paroxysmal A-fib ([facility]) ([facility]) 08/18/2023 Tobacco abuse 10/08/2023 [2] Family [...] ODT OR ondansetron, polyethylene glycol (PEG) 3350 [facility] 03-14-2025 Note Formatting of this n ote might be different from the original. Care Management Progress Note Pt was sent to ER from dialysis due to shortness of breath. Needs PVR of BLE. Nephrology, Vascular and therapies are following. Wants to return to [facility]. Is a bed hold, but if they can skill him they would like to.. Length of Stay (Days): 1 GMLOS: No GMLOS Documented [facility] 03-14-2025 Note Formatting of this n ote might be different from the original. Care Management Progress Note Pt was sent to ER from dialysis due to shortness of breath. Needs PVR of BLE. Nephrology, Vascular and therapies are following. Wants to return to [facility]. Is a bed hold, but if they can skill him they would like to.. Length of Stay (Days): 1 GMLOS: No GMLOS Documented [facility] 03-14-2025 Consult note Associated Order (s): IP CONSULT TO CARDIOLOGY [facility] Cardiology /Electrophysiology Consult Note Reason for Consult/Chief Complaint: Volume overload, afib rvr Referring provider: Dr Kidd 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 He recently was at [facility] for Klebsiella pneumonia, hemoptysis and lung abscess [...] of Cardiovascular Disease, Division of Heart Failure [facility] 3:25 PM 03/14/25 [facility] Work Phone: 03-14-2025 Consult note Associated Order (s): INPATIENT CONSULT TO WOUND CARE PROVIDERS Images from the original note were not included. [facility] Wound VAC CONSULT Note Jun Snyder AGE: [...] apply Betadine and allow to dry, leave GAS DISPATCHER daily and PRN Nutritional support Wound Care to follow Recommend to follow up at [facility] wound care center after hospital discharge. Any [...] History: Diagnosis Date Acute renal failure (ARF) ([facility]) 10/19/2019 Anemia 12/30/2021 Calcification of abdominal aorta ([facility]) 10/08/202309/[address] abd Diverticulosis 10/08/2023 ESRD on hemodialysis ([facility]) ([facility]) 10/26/2019 Hemodialysis patient [facility] ([facility]) HTN (hypertension) 12/01/2022 Hypertension IgA nephropathy IgA nephropathy determined by biopsy of kidney 10/26/2019 Missed vaccination due to patient refusal 10/08/2023 Has a number of non-scientific based beliefs which interfere with his understanding and acceptance of the medical benefit of vaccination. Nonrheumatic aortic valve stenosis 10/08/2023 Paroxysmal A-fib ([facility]) ([facility]) 08/18/2023 Tobacco abuse 10/08/2023 [2] Past Surgical History: Procedure Laterality Date APPENDECTOMY CARDIAC CATHETERIZATION N/A 10/09/2024 Performed by Bob Watson MD at [facility] Cardiac Cath/EP Lab CARDIAC CATHETERIZATION Bilateral 11/01/2024 Performed by Bob Watson MD at [facility] Cardiac Cath/EP Lab CARDIAC CATHETERIZATION N/A 11/01/2024 Performed by Bob Watson MD at [facility] Cardiac Cath/EP Lab COLONOSCOPY N/A 01/24/2025 Performed by Chadd Davis MD at [facility] ENDOSCOPY FISTULAGRAM (HISTORICAL) Left 09/15/2021 LEFT UPPER ARM HX AV FISTULA CREATION IR EMBOLIZATION 10/14/2024 IR EMBOLIZATION 10/14/2024 [facility] SPECIAL PROCEDURES IR FISTULAGRAM 08/07/2022 IR [...] Gill DO at 03/19/2025 4:44 PM EDT [facility] 03-14-2025 Note Formatting of this n ote might be different from the original. Referral placed to [facility] via [facility] per TCC request. Await review and response regarding ability to accept. TCC notified. [facility] 03-14-2025 Note Formatting of this n ote might be different from the original. Referral placed to [facility] request. Await review and response regarding ability to accept. TCC notified. Electronically signed by [facility] Sabino Rodrigues [facility] 03-14-2025 Note Referral placed to [facility] - [facility] via [facility] per TCC request. Await review and response regarding ability to accept. TCC notified. [facility] 03-13-2025 Plan of care note Problem: Knowledge Deficit Goal: Patient/family/caregiver demonstrates understanding of disease process, treatment plan, medications, and discharge instructions Outcome: Progressing Problem: Potential for Compromised Skin Integrity Goal: Skin Integrity is Maintained or Improved Outcome: Progressing [facility] 03-13-2025 Nurse Note Removed wound vac that patient arrived to 5w from [facility] pictures of all wound taken on rover and saved to chart NSWto DSD applied to sacral wound [facility] 03-13-2025 History and physical note [facility] Attending History and Physical Admit Date: 03/13/2025 PCP: Leilani Han CHIEF COMPLAINT: History Obtained From: patient,EMR HISTORY OF PRESENT ILLNESS: Jun is a 59 y.o. male with past medical history of hypertension, IgA nephropathy, ESRD on HD, CAD, history of CABG, history of intracranial bleed, paroxysmal A-fib aortic stenosis, s/p mechanical valve replacement recent admission here from 02/20-03/05 for hemoptysis due to Klebsiella pneumonia with lung abscess presented to [facility] ED with worsening shortness of breath. He [...] in upper abdomen He was transferred from [facility] to [facility] due to bed availability Past Medical History: [...] 0 min Stress: Stress Concern Present (02/21/2025) [employer] [place] [employer] - Occupational Stress Questionnaire Feeling of Stress : To some extent Social Connections: Unknown (02/21/2025) Social Connection and Isolation Panel [NHANES] Frequency of Communication with Friends and Family: More than three times a week Frequency of Social Gatherings with Friends and Family: Patient declined Attends Hinduism Services: Patient declined Active Member of Clubs [...] made to ensure accuracy; however, inadvertent computerized mechanical process engineer errors may be present. Rubi Sanon MD,MD Division of Hospitalist Medicine [facility] Please forward a copy of this H&P to the patient's PCP. Thank you. Electronically signed by Rubi Sanon MD at 5:11 PM [1] Past Medical History: Diagnosis Date Acute renal failure (ARF) ([facility]) 10/19/2019 Anemia 12/30/2021 Calcification of abdominal aorta ([facility]) 10/08/202309/[address] abd Diverticulosis 10/08/2023 ESRD on hemodialysis [place] ([facility]) 10/26/2019 Hemodialysis patient ([facility] ([facility]) HTN (hypertension) 12/01/2022 Hypertension IgA nephropathy IgA nephropathy determined by biopsy of kidney 10/26/2019 Missed vaccination due to patient refusal 10/08/2023 Has a number of non-scientific based beliefs which interfere with his understanding and acceptance of the medical benefit of vaccination. Nonrheumatic aortic valve stenosis 10/08/2023 Paroxysmal A-fib ([facility]) ([facility]) 08/18/2023 Tobacco abuse 10/08/2023 [2] Past Surgical History: Procedure Laterality Date APPENDECTOMY CARDIAC CATHETERIZATION N/A 10/09/2024 Performed by Bob Watson MD at [facility] Cardiac Cath/EP Lab CARDIAC CATHETERIZATION Bilateral 11/01/2024 Performed by Bob Watson MD at [facility] Cardiac Cath/EP Lab CARDIAC CATHETERIZATION N/A 11/01/2024 Performed by Bob Watson MD at [facility] Cardiac Cath/EP Lab COLONOSCOPY N/A 01/24/2025 Performed by Chadd Davis MD at [facility] ENDOSCOPY FISTULAGRAM (HISTORICAL) Left 09/15/2021 LEFT UPPER ARM HX AV FISTULA CREATION IR EMBOLIZATION 10/14/2024 IR EMBOLIZATION 10/14/2024 [facility] SPECIAL PROCEDURES IR FISTULAGRAM 08/07/2022 IR FISTULAGRAM 08/07/2022 [facility] IMAGING TONSILLECTOMY (HISTORICAL) [3] Family History Problem Relation Name Age of Onset No Known Problems Mother No Known Problems Father [4] No current facility-administered medications for this encounter. [5] Allergies Allergen Reactions Lisinopril Swelling and Angioedema [facility] 03-13-2025 Note [facility] 03-13-2025 History and physical note [facility] Attending History and Physical Admit Date: 03/13/2025 PCP: Leilani Han CHIEF COMPLAINT: History Obtained From: patient,EMR HISTORY OF PRESENT ILLNESS: Jun is a 59 y.o. male with past medical history of hypertension, IgA nephropathy, ESRD on HD, CAD, history of CABG, history of intracranial bleed, paroxysmal A-fib aortic stenosis, s/p mechanical valve replacement recent admission here from 02/20-03/05 for hemoptysis due to Klebsiella pneumonia with lung abscess presented to [facility] ED with worsening shortness of breath. He [...] in upper abdomen He was transferred from [facility] ED to [facility] due to bed availability Past Medical History: [...] 0 min Stress: Stress Concern Present (02/21/2025) [employer] [place] [employer] - Occupational Stress Questionnaire Feeling of Stress : To some extent Social Connections: Unknown (02/21/2025) Social Connection and Isolation Panel [NHANES] Frequency of Communication with Friends and Family: More than three times a week Frequency of Social Gatherings with Friends and Family: Patient declined Attends Hinduism Services: Patient declined Active Member of Clubs [...] made to ensure accuracy; however, inadvertent computerized mechanical process engineer errors may be present. Rubi Sanon MD,MD Division of Hospitalist Medicine [facility] Please forward a copy of this H&P to the patient's PCP. Thank you. Electronically signed by Rubi Sanon MD at 5:11 PM [1] Past Medical History: Diagnosis Date Acute renal failure (ARF) ([facility]) 10/19/2019 Anemia 12/30/2021 Calcification of abdominal aorta ([facility]) 10/08/202309/[address] abd Diverticulosis 10/08/2023 ESRD on hemodialysis ([facility]) ([facility]) 10/26/2019 Hemodialysis patient [place] ([facility]) HTN (hypertension) 12/01/2022 Hypertension IgA nephropathy [...] 10/09/2024 Performed by Bob Watson MD at [facility] Cardiac Cath/EP Lab CARDIAC CATHETERIZATION Bilateral 11/01/2024 Performed by Bob Watson MD at [facility] Cardiac Cath/EP Lab CARDIAC CATHETERIZATION N/A 11/01/2024 Performed by Bob Watson MD at [facility] Cardiac Cath/EP Lab COLONOSCOPY N/A 01/24/2025 Performed by Chadd Davis MD at [facility] ENDOSCOPY FISTULAGRAM (HISTORICAL) Left 09/15/2021 LEFT UPPER ARM HX AV FISTULA CREATION IR EMBOLIZATION 10/14/2024 IR EMBOLIZATION 10/14/2024 [facility] SPECIAL PROCEDURES IR FISTULAGRAM 08/07/2022 IR FISTULAGRAM 08/07/2022 [facility] IR IMAGING TONSILLECTOMY (HISTORICAL) [3] Family History Problem Relation Name Age of Onset No Known Problems Mother No Known Problems Father [4] No current facility-administered medications for this encounter. [5] Allergies Allergen Reactions Lisinopril Swelling and Angioedema documented in this encounter [facility] 03-13-2025 Emergency department Note When this RN came back from lunch Pt was already taken to [facility] by Damir Day. RN covering my lunch called report to RN at [facility]. [facility] 03-13-2025 Emergency department Note When this RN came back from lunch Pt was already taken to [facility] by Damir Day. RN covering my lunch called report to RN at [facility]. Called report to SWEETIE Linder at 5W. Damir Johnson at bedside to transport patient to [facility]. Emergency Department Encounter Pt Name: Jun Snyder Birthdate 1965 Date of evaluation: 03/13/2025 Provider: Keiry Solares MD CHIEF COMPLAINT Chief Complaint Patient presents with Shortness of Breath Pt arrived from [facility] via EMS. Pt was starting dialysis and [...] Response: Oriented Best Motor Response: Follows commands Badger Coma Scale Score: 15 EMERGENCY DEPARTMENT COURSE [...] orally. I discussed the case with Dr. Ferner, due to no available beds at [facility] and available beds at [facility] patient wishes to be transferred. I discussed the case with Dr. Sanon at [facility] who accepts patient for transfer. Chronic conditions and social determinants of health affecting care: atrial fibrillation, ESRD DISPOSITION/PLAN Admit 03/13/2025 02:55:43 PM Keiry Solares MD Emergency Medicine [1] Past Medical History: Diagnosis Date Acute renal failure (ARF) ([facility]) 10/19/2019 Anemia 12/30/2021 Calcification of abdominal aorta ([facility]) 10/08/202309/[address] abd Diverticulosis 10/08/2023 ESRD on hemodialysis ([facility]) ([facility]) 10/26/2019 Hemodialysis [place] ([facility]) HTN (hypertension) 12/01/2022 Hypertension IgA nephropathy IgA nephropathy determined by biopsy of kidney 10/26/2019 Missed vaccination due to patient refusal 10/08/2023 Has a number of non-scientific based beliefs which interfere with his understanding and acceptance of the medical benefit of vaccination. Nonrheumatic aortic valve stenosis 10/08/2023 Paroxysmal A-fib ([facility]) ([facility]) 08/18/2023 Tobacco abuse 10/08/2023 Keiry Solares MD 03/13/256 documented in this encounter [facility] 03-13-2025 Emergency department Note Called report to SWEETIE Linder at 5W. [facility] 03-13-2025 Emergency department Note Damir Johnson at bedside to transport patient to [facility]. [facility] 03-13-2025 Physician Emergen cy department Note Emergency Department Encounter Pt Name: Jun Snyder Birthdate 1965 Date of evaluation: 03/13/2025 Provider: Keiry Solares MD CHIEF COMPLAINT Chief Complaint Patient presents with Shortness of Breath Pt arrived from [facility] via EMS. Pt was starting dialysis and [...] alert. Psychiatric: Mood and Affect: Mood normal. Badger Coma Scale Best Eye Response: Spontaneous Best Verbal Response: Oriented Best Motor Response: Follows commands Badger Coma Scale Score: 15 EMERGENCY DEPARTMENT COURSE [...] Hoffman, due to no available beds at [facility] and available beds at [facility] patient wishes to be transferred. I discussed the case with Dr. Sanon at [facility] who accepts patient for transfer. Chronic conditions and social determinants of health affecting care: atrial fibrillation, ESRD DISPOSITION/PLAN Admit 03/13/2025 02:55:43 PM Keiry Solares MD Emergency Medicine [1] Past Medical History: Diagnosis Date Acute renal failure (ARF) ([facility]) 10/19/2019 Anemia 12/30/2021 Calcification of abdominal aorta ([facility]) 10/08/202309/[address] abd Diverticulosis 10/08/2023 ESRD on hemodialysis ([facility]) ([facility]) 10/26/2019 Hemodialysis patient ([facility]) ([facility]) HTN (hypertension) 12/01/2022 Hypertension IgA nephropathy IgA nephropathy determined by biopsy of kidney 10/26/2019 Missed vaccination due to patient refusal 10/08/2023 Has a number of non-scientific based beliefs which interfere with his understanding and acceptance of the medical benefit of vaccination. Nonrheumatic aortic valve stenosis 10/08/2023 Paroxysmal A-fib (CMS/HCC) (HCC) 08/18/2023 Tobacco abuse 10/08/2023 Keiry Solares MD 03/13/256 [facility] 03-08-2025 History of Presen t illness Narrative Pt was followed by the Palliative Care Team during hospitalization at [facility]. Provider is recommending continued Palliative follow up in the community. Referral made too [facility] Palliative Care Team, faxed info to [phone] documented in this encounter [facility] 03-08-2025 Telephone encount er Note 2nd attempt called and spoke to the Alyssa the Nurse for the patient at the facility he lives at. She states Sabino is the person who schedules the appointments and she is on vacation and wont be back till next Wednesday. I will try again next wednesday [facility] 03-08-2025 Miscellaneous Notes Formattin g of this [...] and hospital follow up with any ARMIN Frankielo, can we please schedule a 6-week CT scan for this patient and a follow-up appointment after this? Thank you documented in this encounter [facility] 03-05-2025 History of Presen t illness Narrative Images from the original note were not included. PHYSICAL THERAPY [facility] Treatment Note Name/MRN: Jair Snyder ([id number]) Date of : 1965 Age: 59 y.o. Room/Bed: W3-334/W3334 A Discharge Recommendation: Longterm Facility Equipment Needed: [...] any questions or concerns Bree Molina APRN APPLICATION HELPER A-G MECHANICAL TEST TECHNICIAN [facility] [place] [phone] I reviewed with RIPSAW GRADER-APPLICATION HELPER the medical history and the findings on physical examination. I discussed the patient s diagnosis and concur with the treatment plan as documented in his note. Please call [phone] or message me through [employer] with any questions or concerns. [facility] Anticoagulation Management Service ([facility]) Inpatient Warfarin Consult HPI: Jun Snyder is a 59 y.o. male admitted on 02/20/2025 for Hemoptysis [R04.2]. Medical History[1] Patient is on warfarin for mechanical AVR and has a goal INR 2.0 - 3.0. Patient was referred to [facility], but so far has been managed at facilities, most recently [facility]. Pt's home dose of warfarin [...] 3mg 6/3 1.3 2mg 6/2 1.3 1.5mg 6 1.3 1 mg 02/24 1.3 1 mg [...] RPh [facility] Consult Service is available daily [phone] via [employer]. [1] Past Medical History: Diagnosis Date Acute renal failure (ARF) ([facility]) 10/19/2019 Anemia 12/30/2021 Calcification of abdominal aorta ([facility]) 10/08/202309/[address] abd Diverticulosis 10/08/2023 ESRD on hemodialysis ([facility]) ([facility]) 10/26/2019 [place] ([facility]) HTN (hypertension) 12/01/2022 Hypertension IgA nephropathy IgA nephropathy determined by biopsy of kidney 10/26/2019 Missed vaccination due to patient refusal 10/08/2023 Has a number of non-scientific based beliefs which interfere with his understanding and acceptance of the medical benefit of vaccination. Nonrheumatic aortic valve stenosis 10/08/2023 Paroxysmal A-fib ([facility]) ([facility]) 08/18/2023 Tobacco abuse 10/08/2023 Hospitalist Progress Note - [facility] - [employer] ([facility]) 03/05/2025 7:13 AM [phone]: Please page me for patient care issues. [phone]: Please page [facility] Hospitalist - [facility] for any issues. Subjective and Objective: Admit Date: 02/20/2025 PCP: Leilani Han Chief Complaint Patient presents with Coughing Up Blood Pt arrives via EMS due to coughing up blood. This began around 1200 today while he was at dialysis. Pt endorses nausea, but denies any related abdominal pain. Per pt and EMS, the blood he was coughing up was bright red and it stopped just MEDICAL SPECIALIST when in transport. Adult diet Regular Dietary [...] - (0 mL/kg) Weight: 60.8 kg @IODETAILS@ @[id number]@ Medications: Continuous Meds[1] Scheduled Meds[2] Recent Labs [...] "CHOL" No results found for: "PHART", "PO2ART", "UYH3YVY" Recent Labs 03/04/25 0156 03/04/25 0946 03/05/25 [...] medically stable for discharge - Location - [facility]) - Pending the following - dispo, [...] Extended Emergency Contact Information Primary Emergency Contact: Adrian Snydered Mobile Relation: Child Secondary Emergency Contact: Toma Mcneil Mobile Relation: Partner Anthony Hurtado DO Division of Hospitalist Medicine Inpatient Medical Services/[facility] [1] heparin, 5-30 Units/kg/hr, Last Rate: 21 [...] original note were not included. PHYSICAL THERAPY [facility] Name/MRN: Jair Snyder ([id number]) Date: 03/04/2025 Attempted to initiate PT this date; upon arrival, patient states he is needs to have a bowel movement and does not want to do PT. Offered to ambulate patient to bathroom or use of a bedpan however patient declines. Will continue to follow. Emily Stanley MEDICAL SPECIALIST Cosigned by Darryn Tay PT at 03/04/2025 3:38 PM EDT Hospitalist Progress Note - [facility] - [employer] ([facility]) 03/04/2025 9:11 AM [phone]: Please page me for patient care issues. [phone]: Please page [facility] Hospitalist - [facility] for any issues. Subjective and Objective: Admit Date: 02/20/2025 PCP: Leilani Han Chief Complaint Patient presents with Coughing Up Blood Pt arrives via EMS due to coughing up blood. This began around 1200 today while he was at dialysis. Pt endorses nausea, but denies any related abdominal pain. Per pt and EMS, the blood he was coughing up was bright red and it stopped just MEDICAL SPECIALIST when in transport. Adult diet Regular Dietary [...] - (0 mL/kg) Weight: 60.8 kg @IODETAILS@ @[id number]@ Medications: Continuous Meds[1] Scheduled Meds[2] Recent Labs [...] "CHOL" No results found for: "PHART", "PO2ART", "CZV8KPB" Recent Labs 03/02/25 0004 03/03/25 0212 03/04/25 [...] 03/04 - 05/05 - Location - SNF ([facility]) - Pending the following - [...] DO Division of Hospitalist Medicine Inpatient Medical Services/[facility] [1] heparin, 5-30 Units/kg/hr, Last Rate: 20 [...] electrolyte and CBC daily Maryam Marcelo DO [facility] Anticoagulation Management Service ([facility]) Inpatient Warfarin Consult HPI: Jun Snyder is a 59 y.o. male admitted on 02/20/2025 for Hemoptysis [R04.2]. Medical History[1] Patient is on warfarin for mechanical AVR and has a goal INR 2.0 - 3.0. Patient was referred to [facility], but so far has been managed at facilities, most recently [facility]. Pt's home dose of warfarin [...] mg 6/6 1.4 5mg 6/5 1.4 4mg 6/ 1.3 3mg / 1.3 2mg 6/2 1.3 1.5mg / 1.3 1 mg 02/24 1.3 1 mg [...] PharmD [facility] Consult Service is available daily [phone] via [employer] Secure Pure[employer]. [1] Past Medical History: Diagnosis Date Acute renal failure (ARF) (HCC) 10/19/2019 Anemia 12/30/2021 Calcification of abdominal aorta (HCC) 10/08/202309/[address] abd Diverticulosis 10/08/2023 ESRD on hemodialysis ([facility]) ([facility]) 10/26/2019 [place] ([facility]) HTN (hypertension) 12/01/2022 Hypertension IgA nephropathy IgA nephropathy determined by biopsy of kidney 10/26/2019 Missed vaccination due to patient refusal 10/08/2023 Has a number of non-scientific based beliefs which interfere with his understanding and acceptance of the medical benefit of vaccination. Nonrheumatic aortic valve stenosis 10/08/2023 Paroxysmal A-fib ([facility]) ([facility]) 08/18/2023 Tobacco abuse 10/08/2023 Hospitalist Progress Note - [facility] [employer] ([facility]) 03/03/2025 8:37 AM [phone]: Please page me for patient care issues. [phone]: Please page [facility] Hospitalist - [facility] for any issues. Subjective and Objective: Admit Date: 02/20/2025 PCP: Leilani Han Chief Complaint Patient presents with Coughing Up Blood Pt arrives via EMS due to coughing up blood. This began around 1200 today while he was at dialysis. Pt endorses nausea, but denies any related abdominal pain. Per pt and EMS, the blood he was coughing up was bright red and it stopped just MEDICAL SPECIALIST when in transport. Adult diet Regular Dietary [...] (0.4 mL/kg) [Drains:25] Weight: 60.8 kg @IODETAILS@ @[id number]@ Medications: Continuous Meds[1] Scheduled Meds[2] Recent Labs 03/01/25 0003 03/02/25 0004 03/03/25 021 WBC 7.5 7.4 8.9 HGB 8.0* 7.7* [...] "CHOL" No results found for: "PHART", "PO2ART", "QCT2IKL" Recent Labs 03/01/25 0003 03/02/25 0004 03/03/25211 INR 1.4* 1.4* 1.6* No results for [...] Date - 03/04 - Location - SNF ([facility]) - Pending the following - INR [...] DO Division of Hospitalist Medicine Inpatient Medical Services/[facility] [1] heparin, 5-30 Units/kg/hr, Last Rate: 20 [...] any questions or concerns Bree Molina APRN APPLICATION HELPER A-G MECHANICAL TEST TECHNICIAN [facility] [phone] Pt seen and examined independently by me. I reviewed with RIPSAW GRADER-APPLICATION HELPER the medical history and the findings on physical examination. I discussed the patient s diagnosis and concur with the treatment plan as documented in his note. Please call [phone] or message me through [employer] with any questions or concerns. Hospitalist Progress Note - [facility] - [employer] ([facility]) 03/02/2025 8:20 AM [phone]: Please page me for patient care issues. [phone]: Please page [facility] Hospitalist - [facility] for any issues. Subjective and Objective: Admit Date: 02/20/2025 PCP: Leilani Han Chief Complaint Patient presents with Coughing Up Blood Pt arrives via EMS due to coughing up blood. This began around 1200 today while he was at dialysis. Pt endorses nausea, but denies any related abdominal pain. Per pt and EMS, the blood he was coughing up was bright red and it stopped just MEDICAL SPECIALIST when in transport. Adult diet Regular Dietary [...] (0.7 mL/kg) [Drains:40] Weight: 60.8 kg @IODETAILS@ @[id number]@ Medications: Continuous Meds[1] Scheduled Meds[2] Recent Labs [...] "CHOL" No results found for: "PHART", "PO2ART", "LBP9RYT" Recent Labs 02/28/25 0004 03/01/25 0003 03/02/25 [...] - Date - 03/03 - Location - SNF ([facility]) - Pending the following - INR [...] DO Division of Hospitalist Medicine Inpatient Medical Services/[facility] [1] heparin, 5-30 Units/kg/hr, Last Rate: 19 Units/kg/hr (03/02/25 0813) [2] B complex-vitamin C-folic acid, 1 capsule, Oral, Daily metoprolol tartrate, 25 mg, Oral, BID pantoprazole, 40 mg, Oral, BID AC piperacillin-tazobactam, 2,250 mg, IntraVENous, q6h QUEtiapine, 25 mg, Oral, Nightly sevelamer carbonate, 800 mg, Oral, TID WC warfarin, 5 mg, Oral, Once [facility] Anticoagulation Management Service ([facility]) Inpatient Warfarin Consult HPI: Jun Snyder is a 59 y.o. male admitted on 02/20/2025 for Hemoptysis [R04.2]. Medical History[1] Patient is on warfarin for mechanical AVR and has a goal INR 2.0 - 3.0. Patient was referred to [facility], but so far has been managed at facilities, most recently [facility]. Pt's home dose of warfarin [...] RPh [facility] Consult Service is available daily [phone] via [employer] Secure Chat. [1] Past Medical History: Diagnosis Date Acute renal failure (ARF) ([facility]) 10/19/2019 Anemia 12/30/2021 Calcification of abdominal aorta ([facility]) 10/08/202309/[address] abd Diverticulosis 10/08/2023 ESRD on hemodialysis ([facility]) ([facility]) 10/26/2019 [place] ([facility]) HTN (hypertension) 12/01/2022 Hypertension IgA nephropathy IgA nephropathy determined by biopsy of kidney 10/26/2019 Missed vaccination due to patient refusal 10/08/2023 Has a number of non-scientific based beliefs which interfere with his understanding and acceptance of the medical benefit of vaccination. Nonrheumatic aortic valve stenosis 10/08/2023 Paroxysmal A-fib ([facility] ([facility]) 08/18/2023 Tobacco abuse 10/08/2023 Images from the original note were not included. PHYSICAL THERAPY [facility] Treatment Note Name/MRN: Jair Snyder ([id number]) Date of : 1965 Age: 59 y.o. Room/Bed: 3[facility] A Discharge Recommendation: Longterm Facility Equipment Needed: [...] Raw Score (No Stairs) : 15 [facility] Score: Walked 25 ft or more (i.e. [...] not have opportunity today to speak to MEDICAL SPECIALIST re: recommendation. Mobility appears to be consistent with homegoing, but know that medical conditions and other factors clearly could influence recommendations. Images from the original note were not included. OCCUPATIONAL THERAPY [facility] Treatment Note Name/MRN: Jair Snyder ([id number]) Date of : 1965 Age: 59 y.o. [...] any questions or concerns Bree Molina APRN APPLICATION HELPER A-G MECHANICAL TEST TECHNICIAN [facility] [phone] Pt seen and examined independently by me. I reviewed with Jun Maki, the medical history and the findings on physical examination. I discussed the patient s diagnosis and concur with the treatment plan as documented in his note. Please call [phone] or message me through [employer] with any questions or concerns. Hospitalist Progress Note - [facility] [employer] ([facility]) 03/01/2025 9:51 AM [phone]: Please page me for patient care issues. [phone]: Please page [facility] Hospitalist - [facility] for any issues. Subjective and Objective: Admit Date: 02/20/2025 PCP: Leilani Han Chief Complaint Patient presents with Coughing Up Blood Pt arrives via EMS due to coughing up blood. This began around 1200 today while he was at dialysis. Pt endorses nausea, but denies any related abdominal pain. Per pt and EMS, the blood he was coughing up was bright red and it stopped just MEDICAL SPECIALIST when in transport. Adult diet Regular Dietary Orders (From admission, onward) Start Ordered 02/27/25 1254 Supplement:Breakfast, Dinner; Nepro w/CARB Steady Until discontinued Question Answer Comment Frequency Breakfast Frequency Dinner Select supplement: Nepro w/CARB Steady 02/27/25 1254 02/21/25 1021 Adult diet Regular Diet effective now Question: Diet type Answer: Regular 02/21/25 1021 No intake/output data recorded. @IODETAILS@ @[id number]@ Medications: Continuous Meds[1] Scheduled Meds[2] Recent Labs [...] "CHOL" No results found for: "PHART", "PO2ART", "RAY1OIG" Recent Labs 02/27/25 0010 02/28/25 0004 03/01/25 [...] 03/01 - 03/02 - Location - SNF ([facility]) - Pending the following - [...] DO Division of Hospitalist Medicine Inpatient Medical Services/[facility] [1] heparin, 5-30 Units/kg/hr, Last Rate: 18 Units/kg/hr (03/01/25 0729) [2] B complex-vitamin C-folic acid, 1 capsule, Oral, Daily metoprolol tartrate, 25 mg, Oral, BID pantoprazole, 40 mg, Oral, BID AC piperacillin-tazobactam, 2,250 mg, IntraVENous, q6h QUEtiapine, 25 mg, Oral, Nightly sevelamer carbonate, 800 mg, Oral, TID WC warfarin, 4 mg, Oral, Once Images from the original note were not included. PHYSICAL THERAPY [facility] Name/MRN: Jair Snyder ([id number]) Date: 03/01/2025 Leaving for dialysis. Return later time/date for PT. Merlene León, MEDICAL SPECIALIST Cosigned by Anthony Black, PT at 03/01/2025 8:42 AM EDT [facility] Anticoagulation Management Service ([facility]) Inpatient Warfarin Consult HPI: Jun Snyder is a 59 y.o. male admitted on 02/20/2025 for Hemoptysis [R04.2]. Medical History[1] Patient is on warfarin for mechanical AVR and has a goal INR 2.0 - 3.0. Patient was referred to [facility], but so far has been managed at facilities, most recently [facility]. Pt's home dose of warfarin [...] Will adjust dose accordingly. 3. Will facilitate [facility] follow-up upon discharge. Likely will return to facility initially where they will manage warfarin, and [facility] will take over when discharged from facility. Fatuma Odonnell RPh [facility] Consult Service is available daily [phone] via [employer] Secure Chat. [1] Past Medical History: Diagnosis Date Acute renal failure (ARF) ([facility]) 10/19/2019 Anemia 12/30/2021 Calcification of abdominal aorta ([facility]) 10/08/202309/[address] abd Diverticulosis 10/08/2023 ESRD on hemodialysis ([facility]) ([facility]) 10/26/2019 [place]) HTN (hypertension) 12/01/2022 Hypertension IgA nephropathy IgA nephropathy determined by biopsy of kidney 10/26/2019 Missed vaccination due to patient refusal 10/08/2023 Has a number of non-scientific based beliefs which interfere with his understanding and acceptance of the medical benefit of vaccination. Nonrheumatic aortic valve stenosis 10/08/2023 Paroxysmal A-fib ([facility]) ([facility]) 08/18/2023 Tobacco abuse 10/08/2023 Nephrology Progress [...] any questions or concerns Bree Molina APRN APPLICATION HELPER A-G MECHANICAL TEST TECHNICIAN [facility] [phone] Pt seen and examined independently by me. I reviewed with RIPSAW GRADER-APPLICATION HELPER the medical history and the findings on physical examination. I discussed the patient s diagnosis and concur with the treatment plan as documented in his note. Please call [phone] or message me through [employer] with any questions or concerns. Hospitalist Progress Note - [facility] - [employer] ([facility]) 02/28/2025 8:23 AM [phone]: Please page me for patient care issues. [phone]: Please page [facility] Hospitalist - [facility] for any issues. Subjective and Objective: Admit Date: 02/20/2025 PCP: Leilani Han Chief Complaint Patient presents with Coughing Up Blood Pt arrives via EMS due to coughing up blood. This began around 1200 today while he was at dialysis. Pt endorses nausea, but denies any related abdominal pain. Per pt and EMS, the blood he was coughing up was bright red and it stopped just MEDICAL SPECIALIST when in transport. Adult diet Regular Dietary [...] [Urine:450 (0.2 mL/kg/hr)] Weight: 60.8 kg @IODETAILS@ @[id number]@ Medications: Continuous Meds[1] Scheduled Meds[2] Recent Labs [...] "CHOL" No results found for: "PHART", "PO2ART", "OCC1TUX" Recent Labs 02/25/25 2345 02/27/25 0010 02/28/25 [...] - 03/01 - 03/02 - Location - [facility] ([facility]) - Pending the following - INR 2.0, dispo Total time spent (which include face to face and non face to face encounters) in minutes: 52 Toxic drug monitoring/narrow therapeutic index drug monitoring : # Drug name : Coumadin # Route administered : oral # Method of monitoring : INR and monitoring for bleeding Extended Emergency Contact Information Primary Emergency Contact: LillianOmar givens Mobile Relation: Child Secondary Emergency Contact: TarunToma Mobile Relation: Partner Anthony Hurtado DO Division of Hospitalist Medicine Inpatient Medical Services/[facility] [1] heparin, 5-30 Units/kg/hr, Last Rate: 18 Units/kg/hr (02/28/25 0714) [2] B complex-vitamin C-folic acid, 1 capsule, Oral, Daily metoprolol tartrate, 25 mg, Oral, BID pantoprazole, 40 mg, Oral, qAM AC piperacillin-tazobactam, 4,500 mg, IntraVENous, q8h QUEtiapine, 25 mg, Oral, Nightly sevelamer carbonate, 800 mg, Oral, TID WC warfarin, 3 mg, Oral, Once Images from the original note were not included. [facility] Wound Care/NP[facility] Progress Note Jun Snyder AGE: [...] for pain with pain medication, per staff services manager, prior to wound VAC dressing change. Wet [...] apply Betadine and allow to dry, leave GAS DISPATCHER daily and PRN Left plantar heel - unstageable pressure injury (POA): -cleanse with NS, apply Betadine and allow to dry, leave TISHA daily and PRN Right wrist Abrasion: -cleanse with antibacterial soap/water, leave GAS DISPATCHER daily Sacral Stage 4 pressure injury (POA): [...] to follow Recommend to follow up at [facility] Outpatient wound care center after [...] History: Diagnosis Date Acute renal failure (ARF) ([facility]) 10/19/2019 Anemia 12/30/2021 Calcification of abdominal aorta (HCC) 10/08/202309/[address] abd Diverticulosis 10/08/2023 ESRD on hemodialysis (CMS/HCC) ([facility]) 10/26/2019 [place] ([facility]) HTN (hypertension) 12/01/2022 Hypertension IgA nephropathy IgA nephropathy determined by biopsy of kidney 10/26/2019 Missed vaccination due to patient refusal 10/08/2023 Has a number of non-scientific based beliefs which interfere with his understanding and acceptance of the medical benefit of vaccination. Nonrheumatic aortic valve stenosis 10/08/2023 Paroxysmal A-fib ([facility] ([facility]) 08/18/2023 Tobacco abuse 10/08/2023 [2] Past Surgical History: Procedure Laterality Date APPENDECTOMY CARDIAC CATHETERIZATION N/A 10/09/2024 Performed by Bob Watson MD at [facility] Cardiac Cath/EP Lab CARDIAC CATHETERIZATION Bilateral 11/01/2024 Performed by Bob Watson MD at [facility] Cardiac Cath/EP Lab CARDIAC CATHETERIZATION N/A 11/01/2024 Performed by Bob Watson MD at [facility] Cardiac Cath/EP Lab COLONOSCOPY N/A 01/24/2025 Performed by Chadd Davis MD at [facility] ENDOSCOPY FISTULAGRAM (HISTORICAL) Left 09/15/2021 LEFT UPPER ARM HX AV FISTULA CREATION IR EMBOLIZATION 10/14/2024 IR EMBOLIZATION 10/14/2024 [facility] SPECIAL PROCEDURES IR FISTULAGRAM 08/07/2022 IR [...] Gill DO at 03/01/2025 2:50 PM EDT [facility] Anticoagulation Management Service ([facility]) Inpatient Warfarin Consult HPI: Jun Snyder is a 59 y.o. male admitted on 02/20/2025 for Hemoptysis [R04.2]. Medical History[1] Patient is on warfarin for mechanical AVR and has a goal INR 2.0 - 3.0. Patient was referred to [facility], but so far has been managed at facilities, most recently [facility]. Pt's home dose of warfarin [...] over when discharged from facility. Fatuma Odonnell [facility] Consult Service is available daily [phone] via [employer] Secure Chat. [1] Past Medical History: Diagnosis Date Acute renal failure (ARF) (HCC) 10/19/2019 Anemia 12/30/2021 Calcification of abdominal aorta (HCC) 10/08/202309/[address] abd Diverticulosis 10/08/2023 [place] ([facility]) 10/26/2019 Hemodialysis patient [place] ([facility]) HTN (hypertension) 12/01/2022 Hypertension IgA nephropathy IgA nephropathy determined by biopsy of kidney 10/26/2019 Missed vaccination due to patient refusal 10/08/2023 Has a number of non-scientific based beliefs which interfere with his understanding and acceptance of the medical benefit of vaccination. Nonrheumatic aortic valve stenosis 10/08/2023 Paroxysmal A-fib ([facility] ([facility]) 08/18/2023 Tobacco abuse 10/08/2023 Nephrology Progress [...] from the original note were not included. [facility] - Infectious Diseases Attending [...] Total Energy Requirements (kcals/day): 30-35 kcal/kg = 0506-8019 kcal Weight Used for Protein Requirements: Current [...] lb) (08/28/24) % Weight Change (Calculated): -34.6 [place] Body Weight (lbs) (Calculated): 166 lbs [place] Body Weight (Kg) (Calculated): 75 kg % [place] Body Weight (Calculated): 81.1 % BMI (kg/m2) [...] to determine Glenys Juares RD, LD Contact: [id number] Images from the original note were not included. PHYSICAL THERAPY [facility] Name/MRN: Jair Snyder ([id number]) Date: 02/27/2025 Request for "see today" note, [...] Anthony Black PT Hospitalist Progress Note - [facility] - [employer] ([facility]) 02/27/2025 9:03 AM [phone]: Please page me for patient care issues. [phone]: Please page [facility] Hospitalist - [facility] for any issues. Subjective and Objective: Admit Date: 02/20/2025 PCP: Leilani Han Chief Complaint Patient presents with Coughing Up Blood Pt arrives via EMS due to coughing up blood. This began around 1200 today while he was at dialysis. Pt endorses nausea, but denies any related abdominal pain. Per pt and EMS, the blood he was coughing up was bright red and it stopped just MEDICAL SPECIALIST when in transport. Adult diet Regular Dietary Orders (From admission, onward) Start Ordered 02/21/25 1021 Adult diet Regular Diet effective now Question: Diet type Answer: Regular 02/21/25 1021 I/O last 3 completed shifts: In: 750 (12.3 mL/kg) [P.O.:750] Out: 450 (7.4 mL/kg) [Urine:450 (0.2 mL/kg/hr)] Weight: 60.8 kg @IODETAILS@ @[id number]@ Medications: Continuous Meds[1] Scheduled Meds[2] Recent Labs [...] "CHOL" No results found for: "PHART", "PO2ART", "[id number]" Recent Labs 02/25/25 0028 02/25/25 2345 02/27/25 [...] DO Division of Hospitalist Medicine Inpatient Medical Services/[facility] [1] heparin, 5-30 Units/kg/hr, Last Rate: 18 Units/kg/hr (02/27/25 0722) [2] B complex-vitamin C-folic acid, 1 capsule, Oral, Daily metoprolol tartrate, 25 mg, Oral, BID pantoprazole, 40 mg, Oral, qAM AC piperacillin-tazobactam, 4,500 mg, IntraVENous, q8h QUEtiapine, 25 mg, Oral, Nightly sevelamer carbonate, 800 mg, Oral, TID WC warfarin, 2 mg, Oral, Once [facility] Anticoagulation Management Service ([facility]) Inpatient Warfarin Consult HPI: Jun Snyder is a 59 y.o. male admitted on 02/20/2025 for Hemoptysis [R04.2]. Medical History[1] Patient is on warfarin for mechanical AVR and has a goal INR 2.0 - 3.0. Patient was referred to [facility], but so far has been managed at facilities, most recently [facility]. Pt's home dose of warfarin [...] RPh [facility] Consult Service is available daily [phone] via [employer] Secure Chat. [1] Past Medical History: Diagnosis Date Acute renal failure (ARF) ([facility]) 10/19/2019 Anemia 12/30/2021 Calcification of abdominal aorta ([facility]) 10/08/202309/[address] abd Diverticulosis 10/08/2023 ESRD on hemodialysis ([facility]) ([facility]) 10/26/2019 [place]od[place] ([facility]) HTN (hypertension) 12/01/2022 Hypertension IgA nephropathy IgA nephropathy determined by biopsy of kidney 10/26/2019 Missed vaccination due to patient refusal 10/08/2023 Has a number of non-scientific based beliefs which interfere with his understanding and acceptance of the medical benefit of vaccination. Nonrheumatic aortic valve stenosis 10/08/2023 Paroxysmal A-fib ([facility]) ([facility]) 08/18/2023 Tobacco abuse 10/08/2023 Images from the original note were not included. OCCUPATIONAL THERAPY [facility] Initial Evaluation Name/MRN: Jair Snyder ([id number]) Evaluation Date: 02/26/2025 Date of : 1965 Admission Date: 02/20/2025 5:41 PM Age: 59 y.o. Room/Bed: W3-334/W3-334 A Discharge Recommendation: Longterm Facility Assessment IMPRESSION: [...] Problem List Diagnosis Date Noted Severe malnutrition ([facility]) ([facility]) 02/21/2025 Hemoptysis 02/20/2025 Complication of tracheostomy ([facility]) ([facility]) 01/19/2025 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 01/12/2025 Acute respiratory failure with hypoxia ([facility]) [J96.01] 01/08/2025 Tracheostomy care ([facility]) [Z43.0] 01/08/2025 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[facility]) 01/08/2025 Sacral osteomyelitis ([facility]) ([facility]) 01/03/2025 Pneumonia of both lungs due to methicillin susceptible Staphylococcus aureus (MSSA) ([facility]) 01/01/2025 Leukocytosis 12/30/2024 Decubitus ulcer of sacral region, unstageable ([facility]) 12/30/2024 Peritonitis due to fungus ([facility]) 11/30/2024 History of abdominal surgery 11/30/2024 Leg DVT (deep venous thromboembolism), acute, left ([facility]) 11/30/2024 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, 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 of skin ([facility]) 11/30/2024 Tracheostomy dependence ([facility]) 11/30/2024 Pleural effusion 11/28/2024 Gastric ulceration 2024 Atrial flutter, unspecified type ([facility]) 10/03/2024 RSV (acute bronchiolitis due to respiratory syncytial virus) 10/03/2024 Diverticulosis 10/08/2023 Nonrheumatic aortic valve stenosis 10/08/2023 Calcification of abdominal aorta ([facility]) 10/08/2023 Missed vaccination due to patient refusal 10/08/2023 Tobacco abuse 10/08/2023 Alcohol use disorder in remission 10/08/2023 Paroxysmal A-fib ([facility]) ([facility]) 08/18/2023 HTN (hypertension) 12/01/2022 ESRD [place] hemodialysis [place] ([facility]) 10/26/2019 IgA nephropathy determined by biopsy of kidney 10/26/2019 BRBPR (bright red blood per rectum) 01/19/2025 Aortic stenosis 10/03/2024 Upper GI bleed 10/03/2024 S/P AVR 10/03/2024 Acute hypoxic respiratory failure ([facility]) 10/03/2024 Acute encephalopathy 10/03/2024 Pneumoperitoneum 10/03/2024 [...] of Care supervision is transferred to a [facility] Therapy Services Occupational Therapist. Goals and/or treatment plan was established in collaboration with patient/family/other representatives. Ro Sales MS, OTR/L [1] Past Medical History: Diagnosis Date Acute renal failure (ARF) ([facility]) 10/19/2019 Anemia 12/30/2021 Calcification of abdominal aorta (HCC) 10/08/202309/[address] abd Diverticulosis 10/08/2023 ESRD on hemodialysis ([facility]) ([facility]) 10/26/2019 Hemodialysis patient ([facility]) (HCC) HTN (hypertension) 12/01/2022 Hypertension IgA nephropathy IgA [...] 10/09/2024 Performed by Bob Watson MD at [facility] Cardiac Cath/EP Lab CARDIAC CATHETERIZATION Bilateral 11/01/2024 Performed by Bob Watson MD at [facility] Cardiac Cath/EP Lab CARDIAC CATHETERIZATION N/A 11/01/2024 Performed by Bob Watson MD at [facility] Cardiac Cath/EP Lab COLONOSCOPY N/A 01/24/2025 Performed by Chadd Davis MD at [facility] ENDOSCOPY FISTULAGRAM (HISTORICAL) Left 09/15/2021 LEFT UPPER ARM HX AV FISTULA CREATION IR EMBOLIZATION 10/14/2024 IR EMBOLIZATION 10/14/2024 [facility] SPECIAL PROCEDURES IR FISTULAGRAM 08/07/2022 IR FISTULAGRAM 08/07/2022 [facility] IR IMAGING TONSILLECTOMY (HISTORICAL) Hospitalist Progress Note [...] effusions. 5. Cholelithiasis, and [place] kidneys. Seen by pulm service Started on IV abx Started on heparin gtt as well Interval History: pt feels ok Some dizziness at times No more bleeding issues 02/23 Pt awake Reports his PEG is uncomfortable-- wants removed if able No CP 02/24 Pt awake Some cough at times Sob better / Pt awake No sob today No CP 6/ Pt awake Pain controlled No CP Adult diet Regular @IODETAILS@ @[id number]@ Medications: Continuous Meds[1] Scheduled Meds[2] Recent Labs [...] coumadin -- [facility] manage[facility]/OT Will ask surg about PEG remove per request-- out Anticipated Discharge - Date - 02/27 - Location - Skilled Facility - Pending the following - course Total time spent (which include face to face and non face to face encounters) : 46 minutes See orders, continue POC Advance Directive: Full Code Ramón Romano MD, [facility] Hospitalist [1] heparin, 5-30 Units/kg/hr, Last Rate: [...] any questions or concerns Bree Molina APRN APPLICATION HELPER A-G MECHANICAL TEST TECHNICIAN [facility] [place] [phone] Pt seen and examined independently by me. I reviewed with, RIPSAW GRADER-APPLICATION HELPER the medical history and the findings on physical examination. I discussed the patient s diagnosis and concur with the treatment plan as documented in his note. Please call [phone] or message me through [employer] with any questions or concerns. PULMONOLOGY CONSULT [...] Intake/Output Summary (Last 24 hours) at 02/26/2025 0942 Last data filed at 02/26/2025 0617 Gross [...] from the original note were not included. [facility] Wound Care/NPWT Progress Note Jun Snyder AGE: [...] wounds. Vac focused exam: Patient resting on Centrea Pro + bed. Denies any needs. Wound [...] for pain with pain medication, per staff services manager, prior to wound VAC dressing change. Wet [...] apply Betadine and allow to dry, leave GAS DISPATCHER daily and PRN Left plantar heel - unstageable pressure injury (POA): -cleanse with NS, apply Betadine and allow to dry, leave GAS DISPATCHER daily and PRN Right wrist Abrasion: -cleanse [...] to follow Recommend to follow up at [facility] Outpatient wound care center after [...] History: Diagnosis Date Acute renal failure (ARF) ([facility]) 10/19/2019 Anemia 12/30/2021 Calcification of abdominal aorta ([facility]) 10/08/202309/[address] abd Diverticulosis 10/08/2023 ESRD [place] hemodialysis [place] [place]) 10/26/2019 Hemodialysis patient [place] ([facility]) HTN (hypertension) 12/01/2022 Hypertension IgA nephropathy IgA nephropathy determined by biopsy of kidney 10/26/2019 Missed vaccination due to patient refusal 10/08/2023 Has a number of non-scientific based beliefs which interfere with his understanding and acceptance of the medical benefit of vaccination. Nonrheumatic aortic valve stenosis 10/08/2023 Paroxysmal A-fib ([facility] ([facility]) 08/18/2023 Tobacco abuse 10/08/2023 [2] Past Surgical History: Procedure Laterality Date APPENDECTOMY CARDIAC CATHETERIZATION N/A 10/09/2024 Performed by Bob Watson MD at [facility] Cardiac Cath/EP Lab CARDIAC CATHETERIZATION Bilateral 11/01/2024 Performed by Bob Watson MD at [facility] Cardiac Cath/EP Lab CARDIAC CATHETERIZATION N/A 11/01/2024 Performed by Bob Watson MD at [facility] Cardiac Cath/EP Lab COLONOSCOPY N/A 01/24/2025 Performed by Chadd Davis MD at [facility] ENDOSCOPY FISTULAGRAM (HISTORICAL) Left 09/15/2021 LEFT UPPER ARM HX AV FISTULA CREATION IR EMBOLIZATION 10/14/2024 IR EMBOLIZATION 10/14/2024 [facility] SPECIAL PROCEDURES IR FISTULAGRAM 08/07/2022 IR [...] needed (PRN constipation). [DISCONTINUED] epoetin rowan-epbx (Retacrit) 55654 UNIT/ML injection Inject 0.79 mL (7,900 Units) under the skin 1 (one) time per week. (Patient not taking: Reported on 02/21/2025) [DISCONTINUED] pantoprazole (ProtoNix) 40 MG injection Infuse 40 mg into a venous catheter 2 times daily. Cosigned by Ahsan Gill DO at 02/26/2025 4:59 PM EDT [facility] Anticoagulation Management Service ([facility]) Inpatient Warfarin Consult HPI: Jun Snyder is a 59 y.o. male admitted on 02/20/2025 for Hemoptysis [R04.2]. Medical History[1] Patient is on warfarin for mechanical AVR and has a goal INR 2.0 - 3.0. Patient was referred to [facility], but so far has been managed at facilities, most recently [facility]. Pt's home dose of warfarin [...] RPh [facility] Consult Service is available daily [phone] via [employer] Secure Chat. [1] Past Medical History: Diagnosis Date Acute renal failure (ARF) ([facility]) 10/19/2019 Anemia 12/30/2021 Calcification of abdominal aorta ([facility]) 10/08/202309/[address] abd Diverticulosis 10/08/2023 ESRD [place] hemodialysis [place] ([facility]) 10/26/2019 Hemodialysis patient [place] ([facility]) HTN (hypertension) 12/01/2022 Hypertension IgA nephropathy IgA nephropathy determined by biopsy of kidney 10/26/2019 Missed vaccination due to patient refusal 10/08/2023 Has a number of non-scientific based beliefs which interfere with his understanding and acceptance of the medical benefit of vaccination. Nonrheumatic aortic valve stenosis 10/08/2023 Paroxysmal A-fib ([facility] ([facility]) 08/18/2023 Tobacco abuse 10/08/2023 Nephrology Progress [...] original note were not included. PHYSICAL THERAPY [facility] Initial Evaluation Name/MRN: Jair Snyder ([id number]) Evaluation Date: 02/25/2025 Date of : 1965 [...] Diagnosis Date Noted Hemoptysis 02/20/2025 Severe malnutrition ([facility]) ([facility]) 01/19/2025 Complication of tracheostomy ([facility]) ([facility]) 01/19/2025 nursing home (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 01/12/2025 Acute respiratory failure with hypoxia ([facility]) [J96.01] 01/08/2025 Tracheostomy care ([facility]) [Z43.0] 01/08/2025 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[facility]) 01/08/2025 Sacral osteomyelitis ([facility]) ([facility]) 01/03/2025 Pneumonia of both lungs due to methicillin susceptible Staphylococcus aureus (MSSA) ([facility]) 01/01/2025 Leukocytosis 12/30/2024 Decubitus ulcer of sacral region, unstageable ([facility]) 12/30/2024 Peritonitis due to fungus ([facility]) 11/30/2024 History of abdominal surgery 11/30/2024 Leg DVT (deep venous thromboembolism), acute, left ([facility]) 11/30/2024 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, 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 of skin ([facility]) 11/30/2024 Tracheostomy dependence ([facility]) 11/30/2024 Pleural effusion 11/28/2024 Gastric ulceration 2024 Atrial flutter, unspecified type ([facility]) 10/03/2024 RSV (acute bronchiolitis due to respiratory syncytial virus) 10/03/2024 Diverticulosis 10/08/2023 Nonrheumatic aortic valve stenosis 10/08/2023 Calcification of abdominal aorta ([facility]) 10/08/2023 Missed vaccination due to patient refusal 10/08/2023 Tobacco abuse 10/08/2023 Alcohol use disorder in remission 10/08/2023 Paroxysmal A-fib [place] ([facility]) 08/18/2023 HTN (hypertension) 12/01/2022 ESRD on hemodialysis [place] ([facility]) 10/26/2019 IgA nephropathy determined by biopsy of kidney 10/26/2019 BRBPR (bright red blood per rectum) 01/19/2025 Aortic stenosis 10/03/2024 Upper GI bleed 10/03/2024 S/P AVR 10/03/2024 Acute hypoxic respiratory failure ([facility]) 10/03/2024 Acute encephalopathy 10/03/2024 Pneumoperitoneum 10/03/2024 [...] Raw Score (No Stairs) : 15 [id number] Score: Transferred to chair/commode Plan Pt would [...] of Care supervision is transferred to a [facility] Therapy Services Physical Therapist. Goals and/or treatment plan was established in collaboration with patient/family/other representatives. [1] Past Medical History: Diagnosis Date Acute renal failure (ARF) ([facility]) 10/19/2019 Anemia 12/30/2021 Calcification of abdominal aorta ([facility]) 10/08/202309/[address] abd Diverticulosis 10/08/2023 ESRD [place] hemodialysis [place] ([facility]) 10/26/2019 Hemodialysis patient [place] ([facility]) HTN (hypertension) 12/01/2022 Hypertension IgA nephropathy IgA nephropathy determined by biopsy of kidney 10/26/2019 Missed vaccination due to patient refusal 10/08/2023 Has a number of non-scientific based beliefs which interfere with his understanding and acceptance of the medical benefit of vaccination. Nonrheumatic aortic valve stenosis 10/08/2023 Paroxysmal A-fib ([facility]) ([facility]) 08/18/2023 Tobacco abuse 10/08/2023 [2] Past Surgical History: Procedure Laterality Date APPENDECTOMY CARDIAC CATHETERIZATION N/A 10/09/2024 Performed by Bob Watson MD at [facility] Cardiac Cath/EP Lab CARDIAC CATHETERIZATION Bilateral 11/01/2024 Performed by Bob Watson MD at [facility] Cardiac Cath/EP Lab CARDIAC CATHETERIZATION N/A 11/01/2024 Performed by Bob Watson MD at [facility] Cardiac Cath/EP Lab COLONOSCOPY N/A 01/24/2025 Performed by Chadd Davis MD at [facility] ENDOSCOPY FISTULAGRAM (HISTORICAL) Left 09/15/2021 LEFT UPPER ARM HX AV FISTULA CREATION IR EMBOLIZATION 10/14/2024 IR EMBOLIZATION 10/14/2024 [facility] SPECIAL PROCEDURES IR FISTULAGRAM 08/07/2022 IR FISTULAGRAM 08/07/2022 [facility] IR IMAGING TONSILLECTOMY (HISTORICAL) Hospitalist Progress Note [...] effusions. 5. Cholelithiasis, and [place] kidneys. Seen by pulm service Started on IV abx Started on heparin gtt as well Interval History: pt feels ok Some dizziness at times No more bleeding issues 02/23 Pt awake Reports his PEG is uncomfortable-- wants removed if able No CP 02/24 Pt awake Some cough at times Sob better 02/25 Pt awake No sob today No CP Adult diet Regular @IODETAILS@ @[id number]@ Medications: Continuous Meds[1] Scheduled Meds[2] Recent Labs [...] TID WC warfarin, 1.5 mg, Oral, Once [facility] Anticoagulation Management Service ([facility]) Inpatient Warfarin Consult HPI: Jun Snyder is a 59 y.o. male admitted on 02/20/2025 for Hemoptysis [R04.2]. Medical History[1] Patient is on warfarin for mechanical AVR and has a goal INR 2.0 - 3.0. Patient was referred to [facility], but so far has been managed at facilities, most recently [facility]. Pt's home dose of warfarin [...] PharmD [facility] Consult Service is available daily [phone] via [employer] Secure Chat. [1] Past Medical History: Diagnosis Date Acute renal failure (ARF) ([facility]) 10/19/2019 Anemia 12/30/2021 Calcification of abdominal aorta ([facility]) 10/08/202309/[address] abd Diverticulosis 10/08/2023 ESRD on hemodialysis ([facility]) ([facility]) 10/26/2019 Hemod[place] ([facility]) HTN (hypertension) 12/01/2022 Hypertension IgA nephropathy IgA nephropathy determined by biopsy of kidney 10/26/2019 Missed vaccination due to patient refusal 10/08/2023 Has a number of non-scientific based beliefs which interfere with his understanding and acceptance of the medical benefit of vaccination. Nonrheumatic aortic valve stenosis 10/08/2023 Paroxysmal A-fib ([facility]) ([facility]) 08/18/2023 Tobacco abuse 10/08/2023 Vancomycin therapy has been discontinued by Hussain Quintana on 02/24. Thank you for the consult. Pharmacy signing off for vancomycin dosing. Marissa Iglesias PharmD, Date: 02/24/25 Time: 4:08 PM Images from the original note were not included. [facility] - Infectious Diseases Attending Progress [...] 3.4* 4.1 CL 94* 99 CO2 25 GLUCOSE 121* 110* CALCIUM 9.2 9.2 [...] AM Subjective: Admit Date: 02/20/2025 PCP: Leilani Han Jun is a 59 y.o. male with [...] effusions. 5. Cholelithiasis, and [place] kidneys. Seen by pulm service Started on IV abx Started on heparin gtt as well Interval History: pt feels ok Some dizziness at times No more bleeding issues 02/23 Pt awake Reports his PEG is uncomfortable-- wants removed if able No CP 02/24 Pt awake Some cough at times Sob better Adult diet Regular @IODETAILS@ @[id number]@ Medications: Continuous Meds[1] Scheduled Meds[2] Recent Labs [...] Advance Directive: Full Code Ramón Romano MD, [facility] Hospitalist [1] heparin, 5-30 Units/kg/hr, Last Rate: 18 Units/kg/hr (02/24/25 0736) [2] B complex-vitamin C-folic acid, 1 capsule, Oral, Daily metoprolol tartrate, 25 mg, Oral, BID pantoprazole, 40 mg, Oral, qAM AC QUEtiapine, 25 mg, Per G Tube, Nightly sevelamer carbonate, 800 mg, Oral, TID WC vancomycin (Vancocin) intermittent dosing (placeholder), , Other, RX Placeholder [facility] Anticoagulation Management Service ([facility]) Inpatient Warfarin Consult HPI: Jun Snyder is a 59 y.o. male admitted on 02/20/2025 for Hemoptysis [R04.2]. Medical History[1] Patient is on warfarin for mechanical AVR and has a goal INR 2.0 - 3.0. Patient was referred to [facility], but so far has been managed at facilities, most recently [facility]. Pt's home dose of warfarin [...] PharmD [facility] Consult Service is available daily [phone] via [employer] Secure Chat. [1] Past Medical History: Diagnosis Date Acute renal failure (ARF) ([facility]) 10/19/2019 Anemia 12/30/2021 Calcification of abdominal aorta ([facility]) 10/08/202309/[address] abd Diverticulosis 10/08/2023 ESRD on hemodialysis (CMS/HCC) (HCC) 10/26/2019 Hemodialysis patient ([facility]) ([facility]) HTN (hypertension) 12/01/2022 Hypertension IgA nephropathy IgA nephropathy determined by biopsy of kidney 10/26/2019 Missed vaccination due to patient refusal 10/08/2023 Has a number of non-scientific based beliefs which interfere with his understanding and acceptance of the medical benefit of vaccination. Nonrheumatic aortic valve stenosis 10/08/2023 Paroxysmal A-fib ([facility]) ([facility]) 08/18/2023 Tobacco abuse 10/08/2023 Images from the original note were not included. [facility] - Infectious Diseases Attending Progress [...] from the original note were not included. [facility], Pulmonary Medicine [phone] PULMONARY PROGRESS NOTE. Patient - Jun Snyder, [...] exists for component: "LACTA" PROCALCITONIN: Recent Labs 02/21/25 005 PROCAL 0.68* TROPONIN: No results for input(s): [...] PM EDT I have personally performed a jaqc-md-wdno diagnostic evaluation on this patient on date of service 02/23/25. History, labs, imaging studies, and electronic medical record have been reviewed by me. This note documented by the [x]house parent []ARMIN reflects my history, exam, and medical [...] weekend. Please reach out with any concerns [facility] Anticoagulation Management Service ([facility]) Inpatient Warfarin Consult HPI: Jun Snyder is a 59 y.o. male admitted on 02/20/2025 for Hemoptysis [R04.2]. Medical History[1] Patient is on warfarin for mechanical AVR and has a goal INR 2.0 - 3.0. Patient was referred to [facility], but so far has been managed at facilities, most recently [facility]. Pt's home dose of warfarin [...] PharmD [facility] Consult Service is available daily [phone] via [employer] Secure [employer]. [1] Past Medical History: Diagnosis Date Acute renal failure (ARF) ([facility]) 10/19/2019 Anemia 12/30/2021 Calcification of abdominal aorta ([facility]) 10/08/202309/[address] abd Diverticulosis 10/08/2023 ESRD on hemodialysis ([facility]) ([facility]) 10/26/2019 Hemod[place] ([facility]) HTN (hypertension) 12/01/2022 Hypertension IgA nephropathy IgA nephropathy determined by biopsy of kidney 10/26/2019 Missed vaccination due to patient refusal 10/08/2023 Has a number of non-scientific based beliefs which interfere with his understanding and acceptance of the medical benefit of vaccination. Nonrheumatic aortic valve stenosis 10/08/2023 Paroxysmal A-fib ([facility]) ([facility]) 08/18/2023 Tobacco abuse 10/08/2023 Hospitalist Progress [...] effusions. 5. Cholelithiasis, and [place] kidneys. Seen by pulm service Started on IV abx Started on heparin gtt as well Interval History: pt feels ok Some dizziness at times No more bleeding issues 02/23 Pt awake Reports his PEG is uncomfortable-- wants removed if able No CP Adult diet Regular @IODETAILS@ @[email or web address]@ Medications: Continuous Meds[1] Scheduled Meds[2] Recent Labs 02/21/255202/22/259902/23/25 003 WBC 7.0 9.0 8.6 HGB 8.3* 7.8* 8.6* PLT 316 282 316 Recent Labs 02/21/255202/22/259902/23/25 0032 NA 131* 132* 135* K 3.1* 3.4* 4.1 CL 91* 94* 99 CO2 BUN 29* 36* 21 CREATININE 2.89* 3.99* 2.78* GLUCOSE 74 121* 110* Recent Labs 02/21/25 0053 02/22/25 0100 02/23/25 0032 AST 39* 35* 37* ALT 8 9 10 BILITOT 0.8 0.6 0.6 ALKPHOS 120 120 136 No results found for: "TRIG", "HDL", "LDLCALC", "CHOL" Recent Labs 02/20/25 1825 02/22/25 0100 02/23/25 003 INR 1.4* 1.4* 1.3* No results [...] from the original note were not included. [facility] Wound Care/NPWT Progress Note Jun Snyder AGE: [...] pain with PO pain medication, per staff services manager, prior to wound VAC dressing change. Wet [...] to follow Recommend to follow up at [facility] Outpatient wound care center after [...] History: Diagnosis Date Acute renal failure (ARF) ([facility]) 10/19/2019 Anemia 12/30/2021 Calcification of abdominal aorta ([facility]) 10/08/202309/[address] abd Diverticulosis 10/08/2023 ESRD on hemodialysis ([facility]) ([facility]) 10/26/2019 Hemod[place] ([facility]) HTN (hypertension) 12/01/2022 Hypertension IgA nephropathy IgA nephropathy determined by biopsy of kidney 10/26/2019 Missed vaccination due to patient refusal 10/08/2023 Has a number of non-scientific based beliefs which interfere with his understanding and acceptance of the medical benefit of vaccination. Nonrheumatic aortic valve stenosis 10/08/2023 Paroxysmal A-fib ([facility]) ([facility]) 08/18/2023 Tobacco abuse 10/08/2023 [2] Past Surgical History: Procedure Laterality Date APPENDECTOMY CARDIAC CATHETERIZATION N/A 10/09/2024 Performed by Bob Watson MD at [facility] Cardiac Cath/EP Lab CARDIAC CATHETERIZATION Bilateral 11/01/2024 Performed by Bob Watson MD at [facility] Cardiac Cath/EP Lab CARDIAC CATHETERIZATION N/A 11/01/2024 Performed by Bob Watson MD at [facility] Cardiac Cath/EP Lab COLONOSCOPY N/A 01/24/2025 Performed by Chadd Davis MD at [facility] ENDOSCOPY FISTULAGRAM (HISTORICAL) Left 09/15/2021 LEFT UPPER ARM HX AV FISTULA CREATION IR EMBOLIZATION 10/14/2024 IR EMBOLIZATION 10/14/2024 [facility] SPECIAL PROCEDURES IR FISTULAGRAM 08/07/2022 IR [...] needed (PRN constipation). [DISCONTINUED] epoetin rowan-epbx (Retacrit) 28147 UNIT/ML injection Inject 0.79 mL (7,900 Units) [...] lower extremity edema Data: Labs: Recent Labs 02/21/255202/22/259902/23/25 003 WBC 7.0 9.0 8.6 HGB 8.3* 7.8* 8.6* HCT 25.7* 24.5* 27.9* MCV 89.9 91.1 93.0 PLT 316 282 316 Recent Labs 02/21/255202/22/259902/23/2531 NA 131* 132* 135* K 3.1* 3.4* 4.1 CL 91* 94* 99 CO2 28 25 25 GLUCOSE 74 121* 110* CALCIUM 9.3 [...] any questions or concerns Bree Molina APRN APPLICATION HELPER A-G MECHANICAL TEST TECHNICIAN [facility] [phone] Pt seen and examined independently by me. I reviewed with RIPSAW GRADER-APPLICATION HELPER the medical history and the findings on physical examination. I discussed the patient s diagnosis and concur with the treatment plan as documented in his note. Please call [phone] or message me through [employer] with any questions or concerns. Pharmacy Managed [...] [] CrCl ml/min (Cockcroft-Gault, if BLOSSOM, no DIRECTOR OF REHABILITATION AND WELLNESS) Infectious Diagnosis: Pneumonia (target level = 15-20 mg/L) Next level due: 02/24 - 4 hours post-HD Antimicrobials: Patient recently received an antibiotic (last 12 hours) Date/Time Action Medication Dose Rate 02/22/25 0531 New Bag piperacillin-tazobactam (Zosyn) 2,250 mg in sodium chloride 0.9 % 50 mL IVPB Mini-Bag Plus 2,250 mg 16.67 mL/hr Assessment/Plan: Intermittent vancomycin dosing (Pulse Dosing). Lab Results Component Value Date LESTER 11.8 11/02/2024 STANLEY 12.6 02/22/2025 Give Vancomycin 1000 mg x 1 dose based on patient age, weight, renal status and infectious diagnosis (16.4 mg/kg). Will adjust dose/frequency if needed according to level. Follow renal status closely. Orders placed. Thank you for this consult. Please page/call with questions. Date: 02/22/25 Time: 4:36 PM Daryn Nolasco PharmD (available on [employer]) Images from the original note were not included. [facility], Pulmonary Medicine [phone] PULMONARY PROGRESS NOTE. Patient - Jun Snyder, Age - 59 y.o. - 1965 Room Number - W3-334/W3-334 A Consulting - Ramón Romano MD Primary Care Physician - Leilaninilda Han Date of Admission - 02/20/2025 5:41 PM [...] PM EDT I have personally performed a olho-uf-tyik diagnostic evaluation on this patient on date of service 02/22/2025. History, labs, imaging studies, and electronic medical record have been reviewed by me. This note documented by the [x]house parent []ARMIN reflects my history, exam, and medical [...] AM Subjective: Admit Date: 02/20/2025 PCP: Leilani Han Jun is a 59 y.o. male with [...] effusions. 5. Cholelithiasis, and [place] kidneys. Seen by pulm service Started on IV abx Started on heparin gtt as well Interval History: pt feels ok Some dizziness at times No more bleeding issues Adult diet Regular @IODETAILS@ @[email or web address]@ Medications: Continuous Meds[1] Scheduled Meds[2] Recent Labs 02/20/25182402/21/255202/22/2599 WBC 9.4 7.0 9.0 HGB 8.7* 8.3* 7.8* PLT 312 316 282 Recent Labs 02/20/25182402/21/255202/22/2599 NA 133* 131* 132* K 3.1* 3.1* 3.4* CL 92* 91* 94* CO2 BUN 29* 29* 36* CREATININE 2.57* 2.89* 3.99* GLUCOSE 80 74 121* Recent Labs 02/21/255202/22/25 010 AST 39* 35* [...] original note were not included. OCCUPATIONAL THERAPY [facility] Name/MRN: Jair Snyder ([id number]) Date: 02/22/2025 PT refusing to participate in [...] 91.1 PLT 312 316 282 Recent Labs 02/20/25182402/21/255202/22/25 0100 NA 133* 131* 132* K 3.1* 3.1* 3.4* CL 92* 91* 94* CO2 28 25 GLUCOSE 80 74 121* CALCIUM [...] any questions or concerns Bree Molina APRN APPLICATION HELPER A-G MECHANICAL TEST TECHNICIAN [facility] [phone] Pt seen and examined independently by me. I reviewed with RIPSAW GRADER-APPLICATION HELPER the medical history and the findings on physical examination. I discussed the patient s diagnosis and concur with the treatment plan as documented in his note. Please call [phone] or message me through [employer] with any questions or concerns. Images from the original note were not included. PHYSICAL THERAPY [facility] Name/MRN: Jair Snyder ([id number]) Date: 02/22/2025 Pt declined to work with therapy at this time, stating he wants to wait until after the wound vac is put on. Will reattempt at a later date. Sangeeta Sarabia PT Images from the original note were not included. PHYSICAL THERAPY [facility] Name/MRN: Jair Snyder ([id number]) Date: 02/21/2025 Pt declined to work with [...] Time 17 min documented in this encounter [facility] 03-05-2025 Miscellaneous Notes Formattin g of this note might be different from the original. Auth is now pending with [facility] for [facility]. Auth ID: [id number] . The insurance needs PT and OT notes- as PT note yesterday incomplete , they are both requested . Confirmed pickup time of 4:00pm on 03/05/25 by transport Art Sumo at phone number [phone]. Location of facility drop off is [facility]. Facility notified via Cloud[employer], TCC notified on secure chat. Discharge med list transmitted to [facility] via CareGrabbed per TCC request. Tcc requested transport to be set up at 4 PM to permit auth to be ongoing- facility can accept- just requested it be started today - endless track vehicle mechanic notified, and discharge orders faxed, will confirm in secure chat the time and notify the tx team , orders in epic , rosendo done, [facility] . TCC requested OT notes this am - for ongoing auth - PT INR is now good 1.8 , notified facility want to send today , auth was only good thru 03/02 notified TRIBAL COUNCIL MEMBER to confirm about auth requirements again today .. Transport in will call, wound VAC to go with patient, discharge orders in [facility] , LIVES at facility LTC - the facility wants to skill- tcc is working with them to have him discharge later today - transport in will call . Consumer Services Consultant notified to send orders and med rec to [facility] Problem: Knowledge Deficit Goal: Patient/family/caregiver demonstrates understanding [...] Note DC plan is return to ECF/SNF- [facility], no auth needed to return [...] Progress Note 03/03/25 1025 Rapid Rounds Attendance Insurance Adviser Planned Discharge Disposition Correction ([facility], is LT no AUTH needed) Today we still await Other (INR >or = 1.8 per [facility]) Clinical stability Attending completion of discharge workflow Additional Comments: We have a skilled AUTH that expires midnight tonight, however facility will still accept without AUTH per previous CM notes This Insurance Adviser was tasked to follow this patient through the weekend. Chart and Careport were reviewed. INR this am is 1.6, subtherapeutic. Facility updated. Transportation is in will call. manager of sustainability will continue to follow for transitional care [...] med list and updated notes transmitted to [facility] via Careport per TCC request. [...] 1.8 - and need labs post at snf to follow . Consumer Services Consultant tasked to send wound vac and clinicals- requested PT/OT notes for ongoing auth . Rosendo done- transport in will call to return to [facility] where he lives facility did [...] Roundtrip in will call per TCC. Tasked TRI[employer] COUNCIL MEMBER to set up transport in will call, [...] 13 today. Plan is to return to [facility]. . Length of Stay (Days): 7 GMLOS: [...] therapy notes. Want to skill him at [facility]. Started on IV antibiotics for aspiration pneumonia. Continues on a heparin gtt. . Updated notes sent to [facility] via [facility] per [facility] request. Await review and response regarding ability [...] pressure injuries/wounds this shift so RN SHAQ [facility] would prefer to SKILL patient- LTC. [...] Interventions Goal: Promote nutritional intake Outcome: Progressing [facility] would prefer to SKILL patient- LTC. + bedhold will return - has woundVAC and ivab on hep gtt, not ready for discharge , [facility] tasked to send clinicals facility is updated . Updated notes sent to [facility] via [facility] per TCC request. Await review and [...] Outcome: Not Progressing Has dialysis at facility, [facility].. Pt came to ER from dialysis due to hemoptysis. Had a trach removed 01/19. He is a bed hold at [facility]. They would like to skill him if able. Unable to tell me where he went to dialysis this am, asking facility. Referral placed to [facility] Return - [facility] via Careport per TCC request. Await [...] of blood components. documented in this encounter [facility] 03-05-2025 Note [facility] 03-05-2025 Hospital course Narrative Images from the original note were not included. Hospitalist Discharge Summary - [facility] - [employer] ([facility]) Jun Snyder : 1965 Admit date: 02/20/2025 Discharge date: 03/05/2025 Admitting Physician: Bettye Pierre MD Primary Care Physician: Leilani Han Recommended Follow-up: [facility] Wound Ostomy [address] [facility] [address] [place] [facility] [address] [place] [facility] [address] Call Call and schedule appointment in trauma clinic to have PEG tube removed at your convenience, if you wish to pursue. Disposition: Patient discharged in stable condition. Greater than 31 minutes spent discharging the patient and coming up with patient discharge plan. Follow up with Leilani Han in 1-2 weeks as appropriate. Hospital Course: [...] "CHOL" No results found for: "PHART", "PO2ART", "TYQ7YVK" Recent Labs 03/04/25 0156 03/04/25 0946 03/05/25 0343 INR 1.5* 1.6* 1.8* No results for input(s): "DDIMER" in the last 72 hours. No results found for: "HGBA1C" No results found for: "TSH" Urine Culture: No results found for this or any previous visit. Imaging: CTA chest angiogram w and/or wo IV contrast Result Date: 02/20/2025 Patient Name: JUN SNYDER : 1965 [facility]#: [id number] Exam Date/Time: 02/20/2025 19:01 Procedure: CT CHEST [...] effusions. 5. Cholelithiasis, and [place] kidneys. Report Dictated on Electronically Signed By: [...] Your Medications These medications were sent to [facility] [address] [place] [address] [id number] metoprolol tartrate 25 MG tablet pantoprazole 40 MG EC tablet QUEtiapine 25 MG tablet sevelamer carbonate 800 MG tablet You can get these medications from any pharmacy Bring a paper prescription for each of these medications oxyCODONE 5 MG immediate release tablet Signed: Anthony Hurtado DO 03/05/2025, 9:30 AM documented in this encounter [facility] 03-03-2025 Nurse Note Patient Name: Jun Snyder Patient : 1965 Acct: [id number] Date of Admission: 02/20/2025 [facility] A Code Status: Full Code Allergies: Allergies[1] Diagnosis: Problem List[2] Treatment: Hemodilaysis 2:1 Priority: Routine Location: Acute Room Diabetic: No NPO: No Isolation Precautions: Dialysis Consent for Treatment Verified: Yes Blood Consent Verified: Not Applicable ICEBOAT: Identify, Consent, Equipment, HepB Status, Orders Complete, Access Verified, Timeliness (O2 and wall suction bedside) Second Clinician Verifying: Pricne Sawyer Time out performed prior to access [...] 26 (H) 03/03/2025211 CREATININE 3.21 (H) 03/03/2025 0212 CREATININE 9.99 (H) 10/27/2019 0545 CALCIUM 9.8 03/03/2025 0212 PHOS 2.6 02/23/2025 0032 IV Drips and Rate/Dose Continuous Meds[3] Safety - Before each treatment: Dialysis Machine No.: [id number] RO Machine Number: [id number] Dialyzer Lot No.: [id number] Tubing Lot Number: [id number] [employer] Secure: Yes Venous Parameters Set: Yes Arterial Parameters Set: Yes NS Bag: Yes Saline Line Double Clamped: Yes Dialyzer: Nipro Prime Volume (mL): 200 mL RO Machine Number: [id number] RO Machine Log Sheet Completed: Yes Machine Alarm Self Test: Completed, Passed (03/03/25 07) Air Foam Detector: Tested, Proper Function, pH Reading Extracorporeal Circuit Tested for Integrity: Yes Machine Conductivity: 13.7 Manual Conductivity: 13.6 Manual Ph: 7 Bleach Test (Neg): Yes Bath Temperature: 36 C (96.8 F) Conductivity Meter Serial #: [id number] Machine Functioning Alarm Free? Yes Dialysis Bath: K+ (Potassium): 2 Ca+ (Calcium): 2.5 Na+ (Sodium): 137 HCO3 (Bicarb): 35 Bicarbonate Concentrate Lot No.: [id number] Acid Concentrate Lot No.: [id number] Chlorine Testing - Before each treatment and [...] sleeping, removed 2144 03/03/25 1230 350 mL/min 97541 ml/hr -70 mmHg 170 mmHg 80 600 [...] Active Problem List Diagnosis Anemia Paroxysmal A-fib ([facility]) ([facility]) HTN (hypertension) ESRD on hemodialysis ([facility] ([facility]) IgA nephropathy determined by biopsy of kidney Diverticulosis Nonrheumatic aortic valve stenosis Calcification of abdominal aorta ([facility]) Missed vaccination due to patient refusal Tobacco abuse Alcohol use disorder in remission Atrial flutter, unspecified type ([facility]) RSV (acute bronchiolitis due to respiratory syncytial virus) Aortic stenosis Upper GI bleed S/P AVR Acute hypoxic respiratory failure ([facility]) Acute encephalopathy Pneumoperitoneum Gastric ulceration Severe malnutrition ([facility]) ([facility]) Pleural effusion Peritonitis due to fungus ([facility]) History of abdominal surgery Leg DVT (deep venous thromboembolism), acute, left ([facility]) 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, 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 of skin ([facility]) Tracheostomy dependence ([facility]) Leukocytosis Decubitus ulcer of sacral region, unstageable ([facility]) Pneumonia of both lungs due to methicillin susceptible Staphylococcus aureus (MSSA) ([facility]) Sacral osteomyelitis ([facility]) (HCC) Acute respiratory failure with hypoxia (HCC) [J96.01] Tracheostomy care ([facility]) [Z43.0] 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HCC) 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 Please see eMAR for administration Patient Name: Jun Snyder Patient : 1965 Acct: [id number] Date of Admission: 02/20/2025 [facility]: [facility] A Code Status: Full Code Allergies: Allergies[1] [...] - Before each treatment: Dialysis Machine No.: [id number] RO Machine Number: [id number] Dialyzer Lot No.: [id number] Tubing Lot Number: [id number] [employer] Secure: Yes Venous Parameters Set: Yes Arterial Parameters Set: Yes NS Bag: Yes Saline Line Double Clamped: Yes Dialyzer: Nipro Prime Volume (mL): 200 mL RO Machine Number: [id number] RO Machine Log Sheet Completed: Yes Machine Alarm Self Test: Completed, Passed (03/01/25 07) Air Foam Detector: Tested, Proper Function, pH Reading Extracorporeal Circuit Tested for Integrity: Yes Machine Conductivity: 13.6 Manual Conductivity: 13.5 Manual Ph: 7.2 Bleach Test (Neg): Yes Bath Temperature: 36 C (96.8 F) Conductivity Meter Serial #: [id number] Machine Functioning Alarm Free? Yes Dialysis Bath: K+ (Potassium): 3 Ca+ (Calcium): 2.5 Na+ (Sodium): 137 HCO3 (Bicarb): 35 Bicarbonate Concentrate Lot No.: [id number] Acid Concentrate Lot No.: [id number] Chlorine Testing - Before each treatment and [...] (mmHg) TMP DFR Access Visible Intra-Hemodialysis Comments 03/01/2525 -- -- -- -- -- -- Yes [...] 600 Yes pt sleeping, lines secure, removed 14203/01/25 1030 350 mL/min 830 ml/hr -120 mmHg [...] Active Problem List Diagnosis Anemia Paroxysmal A-fib ([facility]) ([facility]) HTN (hypertension) ESRD on hemodialysis ([facility]) ([facility]) IgA nephropathy determined by biopsy of kidney Diverticulosis Nonrheumatic aortic valve stenosis Calcification of abdominal aorta ([facility]) Missed vaccination due to patient refusal Tobacco abuse Alcohol use disorder in remission Atrial flutter, unspecified type ([facility]) RSV (acute bronchiolitis due to respiratory syncytial virus) Aortic stenosis Upper GI bleed S/P AVR Acute hypoxic respiratory failure ([facility]) Acute encephalopathy Pneumoperitoneum Gastric ulceration Severe malnutrition ([facility]) ([facility]) Pleural effusion Peritonitis due to fungus ([facility]) History of abdominal surgery Leg DVT (deep venous thromboembolism), acute, left ([facility]) 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, 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 of skin ([facility]) Tracheostomy dependence ([facility]) Leukocytosis Decubitus ulcer of sacral region, unstageable ([facility]) Pneumonia of both lungs due to methicillin susceptible Staphylococcus aureus (MSSA) ([facility]) Sacral osteomyelitis ([facility]) ([facility]) Acute respiratory failure with hypoxia ([facility]) [J96.01] Tracheostomy care ([facility]) [Z43.0] 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[facility]) 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 Pt has been stating the room is too cold, and that maintenance would not fix the problem. This RN notified nurse manger of the heat gun, the patients growing concerns of the temperature in the room, and the patients agitation. Nurse social media sr strategy manager notified maintenance of the problem, and [...] nurses aides cannot leave the floor to warp picker his packages, and pt was agreeable to this as well. Patient Name: Jun Snyder Patient : 1965 Acct: [id number] Date of Admission: 02/20/2025 [facility] A Code Status: Full Code Allergies: Allergies[1] [...] (0) 3 Regular None (Room air) Clear [place] Warm;Dry;No swelling Soft Active 02/27/25 1202 Alert (0) 3 Regular None (Room air) Clear [place] Warm Soft -- 02/27/25 1240 -- -- [...] - Before each treatment: Dialysis Machine No.: [id number] RO Machine Number: [id number] Dialyzer Lot No.: [id number] Tubing Lot Number: [id number] All Connections Secure: Yes Venous Parameters Set: Yes Arterial Parameters Set: Yes NS Bag: Yes Saline Line Double Clamped: Yes Dialyzer: Nipro Prime Volume (mL): 200 mL RO Machine Number: [id number] RO Machine Log Sheet Completed: Yes Machine Alarm Self Test: Completed, Passed (02/27/25 07) Air Foam Detector: Tested, Proper Function, pH Reading Extracorporeal Circuit Tested for Integrity: Yes Machine Conductivity: 13.7 Manual Conductivity: 143.6 Manual Ph: 7 Bleach Test (Neg): Yes Bath Temperature: 36 C (96.8 F) Conductivity Meter Serial #: [id number] Machine Functioning Alarm Free? Yes Dialysis Bath: K+ (Potassium): 3 Ca+ (Calcium): 2.5 Na+ (Sodium): 137 HCO3 (Bicarb): 35 Bicarbonate Concentrate Lot No.: [id number] Acid Concentrate Lot No.: [id number] Chlorine Testing - Before each treatment and [...] Active Problem List Diagnosis Anemia Paroxysmal A-fib ([facility]) ([facility]) HTN (hypertension) ESRD on hemodialysis ([facility]) ([facility]) IgA nephropathy determined by biopsy of kidney Diverticulosis Nonrheumatic aortic valve stenosis Calcification of abdominal aorta ([facility]) Missed vaccination due to patient refusal Tobacco abuse Alcohol use disorder in remission Atrial flutter, unspecified type ([facility]) RSV (acute bronchiolitis due to respiratory syncytial virus) Aortic stenosis Upper GI bleed S/P AVR Acute hypoxic respiratory failure ([facility]) Acute encephalopathy Pneumoperitoneum Gastric ulceration Severe malnutrition ([facility]) ([facility]) Pleural effusion Peritonitis due to fungus ([facility]) History of abdominal surgery Leg DVT (deep venous thromboembolism), acute, left ([facility]) 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, 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 of skin ([facility]) Tracheostomy dependence ([facility]) Leukocytosis Decubitus ulcer of sacral region, unstageable ([facility]) Pneumonia of both lungs due to methicillin susceptible Staphylococcus aureus (MSSA) ([facility]) Sacral osteomyelitis ([facility]) ([facility] Acute respiratory failure with hypoxia ([facility]) [J96.01] Tracheostomy care ([facility]) [Z43.0] 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[facility]) 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 2322- Notified Dr. Hathaway of patient complaint of SOB and worsening chest pain that he described as dull and tight. Vitals WDL. STAT EKG ordered, patient given Nitrostat, and troponin sent down. 2330- Notified DIRECTOR OF REHABILITATION AND WELLNESS to assess the patient. Patient Name: Jun Snyder Patient : 1965 Acct: [id number] Date of Admission: 02/20/2025 Room[facility]: [facility] A Code Status: Full Code Allergies: Allergies[1] Diagnosis: Problem List[2] Treatment: Hemodilaysis 2:1 Priority: Routine Location: Acute Room Diabetic: No NPO: No Isolation Precautions: Dialysis Consent for Treatment Verified: Yes Blood Consent Verified: Not Applicable ICEBOAT: Identify, Consent, Equipment, HepB Status, Orders Complete, Access Verified, Timeliness (o2 and suction functional @ bedside) Second Clinician Verifying: Hectro Hutchison RN Time out performed prior to [...] Results Component Value Date/Time WBC 8.6 02/23/2025 003 HGB 8.6 (L) 02/23/202531 HGB 9.4 11/11/2024 0230 HCT 27.9 (L) 02/23/2025 003 PLT 316 02/23/2025 003 NA 135 (L) 02/23/2025 003 K 4.1 02/23/2025 003 CL 99 02/23/2025 003 CO2 25 02/23/2025 003 BUN 21 02/23/202531 CREATININE 2.78 (H) 02/23/202531 CREATININE 9.99 (H) 10/27/2019 0545 CALCIUM 9.2 02/23/202531 PHOS 2.6 02/23/202531 IV Drips and Rate/Dose Continuous Meds[3] Safety - Before each treatment: Dialysis Machine No.: [id number] RO Machine Number: [id number] Dialyzer Lot No.: [id number] Tubing Lot Number: [id number] All Connections Secure: Yes Venous Parameters Set: Yes Arterial Parameters Set: Yes NS Bag: Yes Saline Line Double Clamped: Yes Dialyzer: Nipro Prime Volume (mL): 200 mL RO Machine Number: [id number] RO Machine Log Sheet Completed: Yes Machine Alarm Self Test: Completed, Passed (02/24/25 08) Air Foam Detector: Tested, Proper Function, pH Reading Extracorporeal Circuit Tested for Integrity: Yes Machine Conductivity: 13.7 Manual Conductivity: 13.7 Manual Ph: 7 Bleach Test (Neg): Yes Bath Temperature: 36 C (96.8 F) Conductivity Meter Serial #: [id number] Machine Functioning Alarm Free? Yes Dialysis Bath: K+ (Potassium): 3 Ca+ (Calcium): 2.5 Na+ (Sodium): 137 HCO3 (Bicarb): 35 Bicarbonate Concentrate Lot No.: [id number] Acid Concentrate Lot No.: [id number] Chlorine Testing - Before each treatment and [...] feed based on dietary recommendations) Provider Name: LEONA Provider Role: Hospitalist Method of Communication: Secure [...] Active Problem List Diagnosis Anemia Paroxysmal A-fib ([facility]) ([facility]) HTN (hypertension) ESRD on hemodialysis ([facility]) ([facility]) IgA nephropathy determined by biopsy of kidney Diverticulosis Nonrheumatic aortic valve stenosis Calcification of abdominal aorta ([facility]) Missed vaccination due to patient refusal Tobacco abuse Alcohol use disorder in remission Atrial flutter, unspecified type ([facility]) RSV (acute bronchiolitis due to respiratory syncytial virus) Aortic stenosis Upper GI bleed S/P AVR Acute hypoxic respiratory failure ([facility]) Acute encephalopathy Pneumoperitoneum Gastric ulceration Severe malnutrition ([facility]) ([facility]) Pleural effusion Peritonitis due to fungus ([facility]) History of abdominal surgery Leg DVT (deep venous thromboembolism), acute, left ([facility]) 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, 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 of skin ([facility]) Tracheostomy dependence ([facility]) Leukocytosis Decubitus ulcer of sacral region, unstageable ([facility]) Pneumonia of both lungs due to methicillin susceptible Staphylococcus aureus (MSSA) ([facility]) Sacral osteomyelitis ([facility]) ([facility]) Acute respiratory failure with hypoxia ([facility]) [J96.01] Tracheostomy care ([facility]) [Z43.0] 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[facility]) 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 Dispatch called [employer] and said a package came to the mail manager but they will not have access to retreive until Wednesday morning. It is locked over the weekend. Wound Care consulted for Pressure Injury Prevention. Pt's Kee score= 13 on 02/23 Pt's pressure points assessed. Pt's Right Heel, Elbows, Occiput and ears all intact. Pt currently followed by Wound MECHANICAL TEST TECHNICIAN group for wounds to left toes, left plantar heel, right wrist, and sacrum with wound vac. For left toes, left heel, right wrist, and sacral wound assessments and treatment plan, please see Wound/Ostomy MECHANICAL TEST TECHNICIAN progress notes. [place] sheet noted at bedside and not on [...] Name: Jun Snyder Patient : 1965 Acct: [id number] Date of Admission: 02/20/2025 [facility]: [facility] A Code Status: Full Code Allergies: Allergies[1] [...] WBC 9.0 02/22/2025 010 HGB 7.8 (L) 02/22/202599 HGB 9.4 11/11/2024 0230 HCT 24.5 (L) 02/22/202599 PLT 282 02/22/2025 010 NA 132 (L) 02/22/2025 010 K 3.4 (L) 02/22/2025 010 CL 94 (L) 02/22/2025 010 CO2 25 02/22/2025 010 BUN 36 (H) 02/22/2025 010 CREATININE 3.99 (H) 02/22/202599 CREATININE 9.99 (H) 10/27/2019 0545 CALCIUM 9.2 02/22/202599 PHOS 3.2 02/22/202599 IV Drips and Rate/Dose Continuous Meds[3] Safety - Before each treatment: Dialysis Machine No.: [id number] RO Machine Number: [id number] Dialyzer Lot No.: [id number] Tubing Lot Number: [id number] All Connections Secure: Yes Venous Parameters Set: Yes Arterial Parameters Set: Yes NS Bag: Yes Saline Line Double Clamped: Yes Dialyzer: Nipro Prime Volume (mL): 200 mL RO Machine Number: [id number] RO Machine Log Sheet Completed: Yes Machine Alarm Self Test: Completed, Passed (test passed at 0938) (02/22/25 0940) Air Foam Detector: Tested, Proper Function, pH Reading Extracorporeal Circuit Tested for Integrity: Yes Machine Conductivity: 13.7 Manual Conductivity: 13.8 Manual Ph: 7 Bleach Test (Neg): Yes (water check negative at 1215) Bath Temperature: 36 C (96.8 F) Conductivity Meter Serial #: [id number] Machine Functioning Alarm Free? Yes Dialysis Bath: K+ (Potassium): 3 Ca+ (Calcium): 2 Na+ (Sodium): 137 HCO3 (Bicarb): 35 Bicarbonate Concentrate Lot No.: [id number] Acid Concentrate Lot No.: [id number] Chlorine Testing - Before each treatment and [...] 120 mmHg 90 600 Yes Brigitte Molina MECHANICAL TEST TECHNICIAN at bedside, no voiced complaints. fluid removal [...] feed based on dietary recommendations) Provider Name: [facility] Provider Role: Hospitalist Method of Communication: Secure [...] Active Problem List Diagnosis Anemia Paroxysmal A-fib ([facility]) ([facility]) HTN (hypertension) ESRD on hemodialysis ([facility]) ([facility]) IgA nephropathy determined by biopsy of kidney Diverticulosis Nonrheumatic aortic valve stenosis Calcification of abdominal aorta ([facility]) Missed vaccination due to patient refusal Tobacco abuse Alcohol use disorder in remission Atrial flutter, unspecified type ([facility]) RSV (acute bronchiolitis due to respiratory syncytial virus) Aortic stenosis Upper GI bleed S/P AVR Acute hypoxic respiratory failure ([facility]) Acute encephalopathy Pneumoperitoneum Gastric ulceration Severe malnutrition ([facility]) ([facility]) Pleural effusion Peritonitis due to fungus ([facility]) History of abdominal surgery Leg DVT (deep venous thromboembolism), acute, left ([facility]) 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, 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 of skin ([facility]) Tracheostomy dependence ([facility]) Leukocytosis Decubitus ulcer of sacral region, unstageable ([facility]) Pneumonia of both lungs due to methicillin susceptible Staphylococcus aureus (MSSA) ([facility]) Sacral osteomyelitis (CMS/HCC) ([facility]) Acute respiratory failure with hypoxia ([facility]) [J96.01] Tracheostomy care ([facility]) [Z43.0] 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[facility]) 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 This RN spoke with RN at [facility] to verify medications that pt is taking. Pt arrived to hospital with wound vac on coccyx. Pt declined pictures to be taken of wound for charting. Pt states wound is being cared for by shelter facility. Pt also mentioned that his Left [...] you. " Pt arrived on floor via [employer] transport documented in this encounter [facility] 02-26-2025 Telephone encount er Note Called spoke with a nurse at the home he lives at. She declined to schedule any appointments at this time because they don't know when patient will be discharged. She said to call back once he is out the hospital. There is no other number to contact patient directly [facility] 02-26-2025 Miscellaneous Notes Formattin g of [...] this? Thank you documented in this encounter [facility] 02-23-2025 Telephone encount er Note Called LM to call back and schedule CT and hospital follow up with any ARMIN [facility] 02-23-2025 Miscellaneous Notes Formattin g of this note might be different from the original. Called LM to call back and schedule CT and hospital follow up with any ARMIN Antonio, can we please schedule a 6-week CT scan for this patient and a follow-up appointment after this? Thank you documented in this encounter [facility] 02-23-2025 Consult note Formatting of th [...] was bright red and it stopped just MEDICAL SPECIALIST when in transport. Reason for Consult: PEG [...] constipation). 02/21/25 Historical Provider, epoetin rowan-epbx (Retacrit) 25460 UNIT/ML injection Inject 0.79 mL (7,900 Units) under the skin 1 (one) time per week. Patient not taking: Reported on 02/21/2025 12/04/24 02/21/25 DENIA Girard APPLICATION HELPER pantoprazole (ProtoNix) 40 MG injection Infuse 40 [...] effusions. 5. Cholelithiasis, and [place] kidneys. Report Dictated on Electronically Signed By: [...] Jaskaran Bey MD General Surgery PGY-2 Pager [phone] [1] Past Medical History: Diagnosis Date Acute renal failure (ARF) ([facility]) 10/19/2019 Anemia 12/30/2021 Calcification of abdominal aorta ([facility]) 10/08/202309/[address] abd Diverticulosis 10/08/2023 ESRD on hemodialysis ([facility]) ([facility]) 10/26/2019 [place]od[place] ([facility]) HTN (hypertension) 12/01/2022 Hypertension IgA nephropathy IgA nephropathy determined by biopsy of kidney 10/26/2019 Missed vaccination due to patient refusal 10/08/2023 Has a number of non-scientific based beliefs which interfere with his understanding and acceptance of the medical benefit of vaccination. Nonrheumatic aortic valve stenosis 10/08/2023 Paroxysmal A-fib ([facility]) (HCC) 08/18/2023 Tobacco abuse 10/08/2023 [2] Past Surgical History: Procedure Laterality Date APPENDECTOMY CARDIAC CATHETERIZATION N/A 10/09/2024 Performed by Bob Watson MD at [facility] Cardiac Cath/EP Lab CARDIAC CATHETERIZATION Bilateral 11/01/2024 Performed by Bob Watson MD at [facility] Cardiac Cath/EP Lab CARDIAC CATHETERIZATION N/A 11/01/2024 Performed by Bob Watson MD at [facility] Cardiac Cath/EP Lab COLONOSCOPY N/A 01/24/2025 Performed by Chadd Davis MD at [facility] ENDOSCOPY FISTULAGRAM (HISTORICAL) Left 09/15/2021 LEFT UPPER ARM HX AV FISTULA CREATION IR EMBOLIZATION 10/14/2024 IR EMBOLIZATION 10/14/2024 [facility] SPECIAL PROCEDURES IR FISTULAGRAM 08/07/2022 IR [...] 0 min Stress: Stress Concern Present (02/21/2025) [place] [employer] - Occupational Stress Questionnaire Feeling of Stress : To some extent Social Connections: Unknown (02/21/2025) Social Connection and Isolation Panel [NHANES] Frequency of Communication with Friends and Family: More than three times a week Frequency of Social Gatherings with Friends and Family: Patient declined Attends Hinduism Services: Patient declined Active Member of Clubs [...] minutes (including chart/data review/analysis, care coordination, and [id number] encounter), and was spent discussing/counseling the patient/family [...] Care Surgery Department of Surgery [facility] Pager: [phone] ~~~~~~~~~~~~~~~~~~~~~~~~~~~~~~~~ ~~~~~~~~~~~~~~~~~~~~~~~~~~~~~ This note may have been dictated using [employer] Medical Practice Edition 2.6 and/or [employer] Voice Recognition Feature. The document was proofread; however, unrecognized voice recognition mechanical process engineer errors may be present. [1] Patient Active Problem List Diagnosis Anemia Paroxysmal A-fib ([facility]) ([facility]) HTN (hypertension) ESRD on hemodialysis ([facility]) ([facility]) IgA nephropathy determined by biopsy of kidney Diverticulosis Nonrheumatic aortic valve stenosis Calcification of abdominal aorta ([facility]) Missed vaccination due to patient refusal Tobacco abuse Alcohol use disorder in remission Atrial flutter, unspecified type ([facility]) RSV (acute bronchiolitis due to respiratory syncytial virus) Aortic stenosis Upper GI bleed S/P AVR Acute hypoxic respiratory failure ([facility]) Acute encephalopathy Pneumoperitoneum Gastric ulceration Severe malnutrition ([facility]) ([facility]) Pleural effusion Peritonitis due to fungus ([facility]) History of abdominal surgery Leg DVT (deep venous thromboembolism), acute, left ([facility]) 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, 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 of skin ([facility]) Tracheostomy dependence ([facility]) Leukocytosis Decubitus ulcer of sacral region, unstageable ([facility]) Pneumonia of both lungs due to methicillin susceptible Staphylococcus aureus (MSSA) ([facility]) Sacral osteomyelitis ([facility]) ([facility]) Acute respiratory failure with hypoxia ([facility]) [J96.01] Tracheostomy care ([facility]) [Z43.0] 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[facility]) nursing home (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 Complication of tracheostomy ([facility]) ([facility]) BRBPR (bright red blood per rectum) Hemoptysis Associated Order(s): IP CONSULT TO INFECTIOUS DISEASES Images from the original note were not included. [facility] - Infectious Diseases Attending [...] effusions. 5. Cholelithiasis, and [place] kidneys. Past Medical History: Medical History[1] Past [...] 0 min Stress: Stress Concern Present (02/21/2025) [place] [employer] - Occupational Stress Questionnaire Feeling of Stress : To some extent Social Connections: Unknown (02/21/2025) Social Connection and Isolation Panel [NHANES] Frequency of Communication with Friends and Family: More than three times a week Frequency of Social Gatherings with Friends and Family: Patient declined Attends Hinduism Services: Patient declined Active Member of Clubs [...] inflammation Lines: sites clean Labs: Recent Labs 02/20/25182402/21/253 02/22/25 0100 NA 133* [...] History: Diagnosis Date Acute renal failure (ARF) ([facility]) 10/19/2019 Anemia 12/30/2021 Calcification of abdominal aorta ([facility]) 10/08/202309/[address] abd Diverticulosis 10/08/2023 [place]) 10/26/2019 Hemod[place] ([facility]) HTN (hypertension) 12/01/2022 Hypertension IgA nephropathy IgA nephropathy determined by biopsy of kidney 10/26/2019 Missed vaccination due to patient refusal 10/08/2023 Has a number of non-scientific based beliefs which interfere with his understanding and acceptance of the medical benefit of vaccination. Nonrheumatic aortic valve stenosis 10/08/2023 Paroxysmal A-fib ([facility]) ([facility]) 08/18/2023 Tobacco abuse 10/08/2023 [2] Past Surgical History: Procedure Laterality Date APPENDECTOMY CARDIAC CATHETERIZATION N/A 10/09/2024 Performed by Bob Watson MD at [facility] Cardiac Cath/EP Lab CARDIAC CATHETERIZATION Bilateral 11/01/2024 Performed by Bob Watson MD at [facility] Cardiac Cath/EP Lab CARDIAC CATHETERIZATION N/A 11/01/2024 Performed by Bob Watson MD at [facility] Cardiac Cath/EP Lab COLONOSCOPY N/A 01/24/2025 Performed by Chadd Davis MD at [facility] ENDOSCOPY FISTULAGRAM (HISTORICAL) Left 09/15/2021 LEFT UPPER ARM HX AV FISTULA CREATION IR EMBOLIZATION 10/14/2024 IR EMBOLIZATION 10/14/2024 [facility] SPECIAL PROCEDURES IR FISTULAGRAM 08/07/2022 IR FISTULAGRAM 08/07/2022 [facility] IR IMAGING TONSILLECTOMY (HISTORICAL) [3] Current Facility-Administered [...] 3 mL 3 mL Nebulization q4h PRN Betyte Pierre MD melatonin tablet 3 mg 3 [...] tablet 800 mg 800 mg Oral TID Bettye Pierre MD 800 mg at 02/22/25 [...] x1 on 02/21. HD is on a schedule with planned HD today. Will check level 4hrs post-HD and re-dose based on results. Follow renal status closely. Thank you for this consult. Please page/call with questions. Date: 02/22/25 Time: 9:31 AM Jolie Uribe RPh (available on [employer]) Associated Order(s): INPATIENT CONSULT TO WOUND CARE PROVIDERS Images from the original note were not included. [facility] Wound Care/NPWT Progress Note Jun Snyder AGE: [...] pain with PO pain medication, per staff services manager, prior to wound VAC dressing change. Wet [...] apply Betadine and allow to dry, leave GAS DISPATCHER daily and PRN Left plantar heel - unstageable pressure injury (POA): -cleanse with NS, apply Betadine and allow to dry, leave GAS DISPATCHER daily and PRN Right wrist Abrasion: -cleanse [...] to follow Recommend to follow up at [facility] Outpatient wound care center after [...] History: Diagnosis Date Acute renal failure (ARF) ([facility]) 10/19/2019 Anemia 12/30/2021 Calcification of abdominal aorta ([facility]) 10/08/202309/[address] abd Diverticulosis 10/08/2023 ESRD on hemodialysis ([facility]) ([facility]) 10/26/2019 [place]od[place] ([facility]) HTN (hypertension) 12/01/2022 Hypertension IgA nephropathy IgA nephropathy determined by biopsy of kidney 10/26/2019 Missed vaccination due to patient refusal 10/08/2023 Has a number of non-scientific based beliefs which interfere with his understanding and acceptance of the medical benefit of vaccination. Nonrheumatic aortic valve stenosis 10/08/2023 Paroxysmal A-fib ([facility]) ([facility]) 08/18/2023 Tobacco abuse 10/08/2023 [2] Past Surgical History: Procedure Laterality Date APPENDECTOMY CARDIAC CATHETERIZATION N/A 10/09/2024 Performed by Bob Watson MD at [facility] Cardiac Cath/EP Lab CARDIAC CATHETERIZATION Bilateral 11/01/2024 Performed by Bob Watson MD at [facility] Cardiac Cath/EP Lab CARDIAC CATHETERIZATION N/A 11/01/2024 Performed by Bob Watson MD at [facility] Cardiac Cath/EP Lab COLONOSCOPY N/A 01/24/2025 Performed by Chadd Davis MD at [facility] ENDOSCOPY FISTULAGRAM (HISTORICAL) Left 09/15/2021 LEFT UPPER ARM HX AV FISTULA CREATION IR EMBOLIZATION 10/14/2024 IR EMBOLIZATION 10/14/2024 [facility] SPECIAL PROCEDURES IR FISTULAGRAM 08/07/2022 IR FISTULAGRAM 08/07/2022 [facility] IR IMAGING TONSILLECTOMY (HISTORICAL) [3] Family History [...] needed (PRN constipation). [DISCONTINUED] epoetin rowan-epbx (Retacrit) 84205 UNIT/ML injection Inject 0.79 mL (7,900 Units) [...] & deltoids) Fluid Accumulation: Unable to assess Professional Athlete Strength: Not Performed Nutrition Assessment: 59yo male admitted from [facility] 02/20 due to coughing up blood during [...] from NPO to Regular this morning. At [facility] diet was Potassium Restricted/Mech Soft/Thin + Prostat [...] Total Energy Requirements (kcals/day): 30-35 kcal/kg = 1412-4236 kcal Weight Used for Protein Requirements: Current [...] lb) (08/28/24) % Weight Change (Calculated): -34.6 [place] Body Weight (lbs) (Calculated): 166 lbs [place] Body Weight (Kg) (Calculated): 75 kg % [place] Body Weight (Calculated): 81.1 % BMI (kg/m2) [...] soon to determine Jade Rodriguez RD Contact: [employer] chat or *[phone] Associated Order(s): INPATIENT CONSULT TO WOUND CARE PROVIDERS Images from the original note were not included. [facility] Wound Care CONSULT Note Jun Snyder AGE: [...] to follow Recommend to follow up at [facility] Outpatient wound care center after hospital discharge. Any questions or concerns please secure chat "[facility] wound/ostomy". Thank you for the consult! I [...] History: Diagnosis Date Acute renal failure (ARF) ([facility]) 10/19/2019 Anemia 12/30/2021 Calcification of abdominal aorta ([facility]) 10/08/202309/[address] abd Diverticulosis 10/08/2023 ESRD on hemodialysis ([facility]) ([facility]) 10/26/2019 Hemod[place] ([facility]) HTN (hypertension) 12/01/2022 Hypertension IgA nephropathy IgA nephropathy determined by biopsy of kidney 10/26/2019 Missed vaccination due to patient refusal 10/08/2023 Has a number of non-scientific based beliefs which interfere with his understanding and acceptance of the medical benefit of vaccination. Nonrheumatic aortic valve stenosis 10/08/2023 Paroxysmal A-fib ([facility]) ([facility]) 08/18/2023 Tobacco abuse 10/08/2023 [2] Past Surgical History: Procedure Laterality Date APPENDECTOMY CARDIAC CATHETERIZATION N/A 10/09/2024 Performed by Bob Watson MD at [facility] Cardiac Cath/EP Lab CARDIAC CATHETERIZATION Bilateral 11/01/2024 Performed by Bob Watson MD at [facility] Cardiac Cath/EP Lab CARDIAC CATHETERIZATION N/A 11/01/2024 Performed by Bob Watson MD at [facility] Cardiac Cath/EP Lab COLONOSCOPY N/A 01/24/2025 Performed by Chadd Davis MD at [facility] ENDOSCOPY FISTULAGRAM (HISTORICAL) Left 09/15/2021 LEFT UPPER ARM HX AV FISTULA CREATION IR EMBOLIZATION 10/14/2024 IR EMBOLIZATION 10/14/2024 [facility] SPECIAL PROCEDURES IR FISTULAGRAM 08/07/2022 IR [...] needed (PRN constipation). [DISCONTINUED] epoetin rowan-epbx (Retacrit) 88264 UNIT/ML injection Inject 0.79 mL (7,900 Units) under the skin 1 (one) time per week. (Patient not taking: Reported on 02/21/2025) [DISCONTINUED] pantoprazole (ProtoNix) 40 MG injection Infuse 40 mg into a venous catheter 2 times daily. Cosigned by Ahsan Gill DO at 02/26/2025 4:59 PM EDT Associated Order(s): IP CONSULT TO PULMONOLOGY Images from the original note were not included. [facility], Pulmonary Medicine [phone] PULMONARY CONSULTATION NOTE. Patient - Jun Snyder, Age - 59 y.o. - 1965 Room Number - W3-334/W3-334 A Consulting - Ramón Romano MD Primary Care Physician - Leilani Han Date of Admission - 02/20/2025 5:41 PM [...] Dose Status acetaminophen (Tylenol) 325 MG tablet [id number] No Take 650 mg by mouth every 6 hours as needed for mild pain (1-3) or fever. Patient not taking: Reported on 02/21/2025 Historical ProviderMD Unknown Active Ampicillin-Sulbactam Sodium (UNASYN IV) [id number] Infuse 3 g into a venous catheter Every 24 hours. Historical Provider, 02/14/25 2359 B complex-vitamin C-folic acid (Nephro-Nato Rx) 1 MG tablet [id number] Take 1 tablet by mouth daily. Historical ProviderMD Active bisacodyl (Dulcolax) 5 MG EC tablet [id number] Take 5 mg by mouth Daily as needed for constipation. Do not crush, chew, or split. Historical Provider, Active bisacodyl (Dulcolax) 5 mg split suppository [id number] Insert 10 mg into the rectum Daily as needed (PRN constipation). Historical ProviderMD Active epoetin rowan-epbx (Retacrit) 75747 UNIT/ML injection [id number] No Inject 0.79 mL (7,900 Units) under the skin 1 (one) time per week. Patient not taking: Reported on 02/21/2025 DENIA Girard CNP Unknown Active ipratropium-albuterol (Duo-Neb) 0.5-2.5 mg/3 mL nebulizer solution [id number] Yes Take 3 mL by nebulization every 8 hours. DENIA Girard CNP Past Week Active Lidocaine 4 % patch [id number] Apply 1 patch topically daily. DENIA Girard CNP Active magnesium hydroxide (Milk of Magnesia) 800 MG/5ML suspension [id number] Take 30 mL by mouth Daily as needed for constipation (if no bm in 3 days). Historical Provider, Active melatonin 5 MG tablet [id number] 1 tablet (5 mg) by Per G Tube route Nightly as needed (insomnia). DENIA Girard CNP Active metoprolol tartrate (Lopressor) 25 MG tablet [id number] 1 tablet (25 mg) by Per G Tube route 2 times daily. DENIA Girard CNP Active midodrine (Proamatine) 5 MG tablet [id number] 3 tablets (15 mg) by Per G Tube route every 6 hours. DENIA Girard CNP 02/14/25 235 naloxone in sodium chloride (PF) injection injection [id number] Inject 0.04 mg into the shoulder, thigh, or buttocks as needed for opioid reversal or respiratory depression. Historical Provider, Active oxyCODONE (Roxicodone) 5 MG immediate release tablet [id number] Take 1 tablet (5 mg) by mouth every 6 hours as needed for moderate pain (4-6) for up to 5 days. Barb Dawkins MD 02/14/25 235 pantoprazole (ProtoNix) 40 MG injection [id number] Infuse 40 mg into a venous catheter 2 times daily. DENIA Girard CNP Active QUEtiapine (SEROquel) 25 MG tablet [id number] 1 tablet (25 mg) by Per G Tube route Nightly. DENIA Girard CNP 02/14/25 235 sevelamer (Renagel) 800 MG tablet [id number] Take 800 mg by mouth 3 times daily (with meals). Swallow tablet whole; do not crush, break, or chew. Give with meals for CKD/dialysis Historical Provider, Active warfarin (Coumadin) 1 MG tablet [id number] Yes Take as directed per After Visit [...] exists for component: "LACTA" PROCALCITONIN: Recent Labs 02/21/25 0053 PROCAL 0.68* [...] 10/09/2024 Performed by Bob Watson MD at [facility] Cardiac Cath/EP Lab CARDIAC CATHETERIZATION Bilateral 11/01/2024 Performed by Bob Watson MD at [facility] Cardiac Cath/EP Lab CARDIAC CATHETERIZATION N/A 11/01/2024 Performed by Bob Watson MD at [facility] Cardiac Cath/EP Lab COLONOSCOPY N/A 01/24/2025 Performed by Chadd Davis MD at [facility] ENDOSCOPY FISTULAGRAM (HISTORICAL) Left 09/15/2021 LEFT UPPER ARM HX AV FISTULA CREATION IR EMBOLIZATION 10/14/2024 IR EMBOLIZATION 10/14/2024 [facility] SPECIAL PROCEDURES IR FISTULAGRAM 08/07/2022 IR FISTULAGRAM 08/07/2022 [facility] IR IMAGING TONSILLECTOMY (HISTORICAL) [2] Allergies Allergen Reactions Lisinopril Swelling and Angioedema [3] Family History Problem Relation Name Age of Onset No Known Problems Mother No Known Problems Father Cosigned by Angeles Blackburn DO at 02/21/2025 4:01 PM EDT Associated attestation - Angeles Blackburn DO - 02/21/2025 4:01 PM EDT I have personally performed a sdil-sf-[id number] diagnostic evaluation on this patient on date of service 02/21/2025. History, labs, imaging studies, and electronic medical record have been reviewed by me. This note documented by the [x]house parent []ARMIN reflects my history, exam, and medical [...] RA Associated Order(s): IP CONSULT TO NEPHROLOGY [facility] [address] [place] [address] Consult Note Patient's Name: Jun Snyder 10:29 [...] effusions. 5. Cholelithiasis, and [place] kidneys. Assessment and Plan: 59 y.o. male [...] any questions or concerns Bree Molina APRN APPLICATION HELPER A-G MECHANICAL TEST TECHNICIAN [facility] [phone] Pt seen and examined independently by me. I reviewed with DENIA-APPLICATION HELPER the medical history and the findings on physical examination. I discussed the patient s diagnosis and concur with the treatment plan as documented in his note. Please call [phone] or message me through [employer] with any questions or concerns. [1] Past Medical History: Diagnosis Date Acute renal failure (ARF) ([facility]) 10/19/2019 Anemia 12/30/2021 Calcification of abdominal aorta ([facility]) 10/08/202309/[address] abd Diverticulosis 10/08/2023 ESRD on hemodialysis ([facility]) ([facility]) 10/26/2019 Hemodialysis patient ([facility]) ([facility]) HTN (hypertension) 12/01/2022 Hypertension IgA nephropathy [...] 10/09/2024 Performed by Bob Watson MD at [facility] Cardiac Cath/EP Lab CARDIAC CATHETERIZATION Bilateral 11/01/2024 Performed by Bob Watson MD at [facility] Cardiac Cath/EP Lab CARDIAC CATHETERIZATION N/A 11/01/2024 Performed by Bob Watson MD at [facility] Cardiac Cath/EP Lab COLONOSCOPY N/A 01/24/2025 Performed by Chadd Davis MD at [facility] ENDOSCOPY FISTULAGRAM (HISTORICAL) Left 09/15/2021 LEFT UPPER ARM HX AV FISTULA CREATION IR EMBOLIZATION 10/14/2024 IR EMBOLIZATION 10/14/2024 [facility] SPECIAL PROCEDURES IR FISTULAGRAM 08/07/2022 IR FISTULAGRAM 08/07/2022 [facility] IR IMAGING TONSILLECTOMY (HISTORICAL) [3] Family History Problem Relation Name Age of Onset No Known Problems Mother No Known Problems Father documented in this encounter [facility] 02-23-2025 Telephone encount er Note Antonio, can we please schedule a 6-week CT scan for this patient and a follow-up appointment after this? Thank you [facility] 02-22-2025 Hospital Discharg elder Hurtado DO - 02/22/2025 2:54 PM EDT Images from the original note were not included. Continuity of Care Form Patient Name: Jun Snyder : 1965 Admit date: 02/20/2025 Discharge date: 03/05/2025 Code Status Order: Full Code Advance Directives: Y Admitting Physician: Bettye Pierre MD PCP: Leilani Han Discharging Nurse: Discharging Hospital Unit/Room#: W3-334/W3-334 A Discharging Unit Emergency Contact: Extended Emergency Contact Information Primary Emergency Contact: Omar Snyder Mobile Relation: Child Secondary Emergency Contact: Toma Mcneil Mobile Relation: Partner Past Surgical History: Past Surgical History: Procedure Laterality Date APPENDECTOMY CARDIAC CATHETERIZATION N/A 10/09/2024 Performed by Bob Watson MD at [facility] Cardiac Cath/EP Lab CARDIAC CATHETERIZATION Bilateral 11/01/2024 Performed by Bob Watson MD at [facility] Cardiac Cath/EP Lab CARDIAC CATHETERIZATION N/A 11/01/2024 Performed by Bob Watson MD at [facility] Cardiac Cath/EP Lab COLONOSCOPY N/A 01/24/2025 Performed by Chadd Davis MD at [facility] ENDOSCOPY FISTULAGRAM (HISTORICAL) Left 09/15/2021 LEFT UPPER ARM HX AV FISTULA CREATION IR EMBOLIZATION 10/14/2024 IR EMBOLIZATION 10/14/2024 [facility] SPECIAL PROCEDURES IR FISTULAGRAM 08/07/2022 IR FISTULAGRAM 08/07/2022 [facility] IR IMAGING TONSILLECTOMY (HISTORICAL) Immunization History: Immunization [...] (CMS/HCC) (HCC) Acute respiratory failure with hypoxia ([facility]) [J96.01] Tracheostomy care ([facility]) [Z43.0] 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[facility]) nursing home (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 Complication of [...] Minimal assistance Toileting Minimal assistance Feeding Independent Jewelry Making Instructor Minimal assistance Med Delivery yes Wound Care [...] Date: 02/20/25 Discharging to Facility/ Agency Name: [facility] Address: [address] [place] [address] Dialysis Facility (if applicable) Name: Address: Dialysis Schedule: Phone: Fax: Insurance Adviser/Barrel Drum Cutter signature: ICIAN SECTION Name: Jun Snyder Prognosis: [...] to a nursing facility directly from an [facility] or a unit of a [facility] that is not operated by or licensed by [facility] under section 5119.14 or 5160-3-15.1 5 The individual requires the level of services provided by a nursing facility for the condition for which he or she was treated in the hospital and, Physician Certification: I certify the above information and transfer of Jun Snyder is necessary for the continuing treatment of the diagnosis listed and that he requires shelter facility for less than 30 days. Update [...] mg 02/24 - 1.3 - 1 mg documented in this encounter [facility] 02-21-2025 Telephone encount er Note Name of caller: Padimni Contact phone number: [phone] Relationship to Patient: [facility] Provider: Mariano Practice: Infectious Disease Chief Complaint/Reason for Call: [facility] need a routine consult for this patient for Hemoptysis Cavitary lung lesion. Please advise Padmini Best time of day caller can be reached: any Patient advised that office/PCP has 24-48 business hours to return their call: Yes [facility] 02-21-2025 Miscellaneous Notes Formattin g of this note might be different from the original. Name of caller: Padmini Contact phone number: [phone] Relationship to Patient: [facility] Provider: Mariano Practice: Infectious Disease Chief Complaint/Reason for Call: [facility] need a routine consult for this patient for Hemoptysis Cavitary lung lesion. Please advise Padmini Best time of day caller can be reached: any Patient advised that office/PCP has 24-48 business hours to return their call: Yes documented in this encounter [facility] 02-21-2025 Note Referral placed to [facility] Return - Belford Alden via [facility] per [facility] request. Await review and response regarding ability to accept. [facility] notified. Electronically signed by NELSON Sabino Rodrigues [facility] 02-20-2025 History and physical note Attending History and Physical Admit Date: 02/20/2025 PCP: Leilani Han CHIEF COMPLAINT: Hemoptysis x 1 day Reason [...] effusions. 5. Cholelithiasis, and [place] kidneys. Past Medical History: Past Medical History: Diagnosis Date Acute renal failure (ARF) (HCC) 10/19/2019 Anemia 12/30/2021 Calcification of abdominal aorta ([facility]) 10/08/202309/[address] abd Diverticulosis 10/08/2023 [place] hemodialysis [place] [place]) 10/26/2019 Hemodialysis patient [place] ([facility]) HTN (hypertension) 12/01/2022 Hypertension IgA nephropathy IgA nephropathy determined by biopsy of kidney 10/26/2019 Missed vaccination due to patient refusal 10/08/2023 Has a number of non-scientific based beliefs which interfere with his understanding and acceptance of the medical benefit of vaccination. Nonrheumatic aortic valve stenosis 10/08/2023 Paroxysmal A-fib ([facility] ([facility]) 08/18/2023 Tobacco abuse 10/08/2023 Past Surgical [...] Patient Unable To Answer (12/01/2024) Received from [facility] Overall Financial Resource Strain (CARDIA) Difficulty of Paying Living Expenses: Patient unable to answer Food Insecurity: Patient Unable To Answer (12/01/2024) Received from [facility] Hunger Vital Sign Worried About Running Out of Food in the Last Year: Patient unable to answer Ran Out of Food in the Last Year: Patient unable to answer Transportation Needs: No Transportation Needs (01/18/2025) Received from [facility] Transportation Source Has lack of transportation kept you from medical appointments or from getting medications?: No Has lack of transportation kept you from meetings, work, or from getting things needed for daily living?: No Physical Activity: Not on file Stress: No Stress Concern Present (01/18/2025) Received from [facility] of Occupational Health - Occupational Stress Questionnaire Feeling of Stress : Not at all Social Connections: Patient Unable To Answer (12/01/2024) Received from [facility] Social Connection and Isolation Panel [NHANES] Frequency of Communication with Friends and Family: Patient unable to answer Frequency of Social Gatherings with Friends and Family: Patient unable to answer Attends Hinduism Services: Patient unable to answer Active Member of Clubs or Organizations: Patient unable to answer Attends Club or Organization Meetings: Patient unable to answer Marital Status: Patient unable to answer Intimate Partner Violence: Patient Unable To Answer (11/28/2024) Received from [facility] Domestic Abuse Assessment Do you feel safe in your relationships at home?: Unable to assess Physical Abuse: Unable to assess [facility] Domestic Abuse - Type of Abuse: Not on file [facility] Domestic Abuse - Time Frame: Not on file [facility] Domestic Abuse - Signs and Symptoms: Not on file Verbal Abuse: Unable to assess [facility] Domestic Abuse - Reported To: Not on file Housing Stability: Patient Unable To Answer (12/01/2024) Received from [facility] Housing Stability Vital Sign Unable to [...] RDW 18.8* PLT 312 BMP: Recent Labs 02/20/255 NA 133* K 3.1* CL 92* CO2 [...] Contact: Toma Mcneil Mobile Relation: Partner Bettye Pierer MD Division of Hospital Medicine Inpatient Medical Services/[facility] [1] Past Surgical History: Procedure Laterality Date APPENDECTOMY CARDIAC CATHETERIZATION N/A 10/09/2024 Performed by Bob Watson MD at [facility] Cardiac Cath/EP Lab CARDIAC CATHETERIZATION Bilateral 11/01/2024 Performed by Bob Watson MD at [facility] Cardiac Cath/EP Lab CARDIAC CATHETERIZATION N/A 11/01/2024 Performed by Bob Watson MD at [facility] Cardiac Cath/EP Lab COLONOSCOPY N/A 01/24/2025 Performed by Chadd Davis MD at [facility] ENDOSCOPY FISTULAGRAM (HISTORICAL) Left 09/15/2021 LEFT UPPER ARM HX AV FISTULA CREATION IR EMBOLIZATION 10/14/2024 IR EMBOLIZATION 10/14/2024 [facility] SPECIAL PROCEDURES IR FISTULAGRAM 08/07/2022 IR FISTULAGRAM 08/07/2022 [facility] IR IMAGING TONSILLECTOMY (HISTORICAL) [2] Family History Problem Relation Name Age of Onset No Known Problems Mother No Known Problems Father [3] Allergies Allergen Reactions Lisinopril Swelling and Angioedema documented in this encounter [facility] 02-20-2025 Note [facility] 02-20-2025 Emergency department Note Called report to [...] placed. Wound is being cared for by shelter facility where he resides EMERGENCY DEPARTMENT ENCOUNTER [...] was bright red and it stopped just MEDICAL SPECIALIST when in transport. HISTORY OF PRESENT ILLNESS [...] CURRENT MEDICATIONS Previous Medications EPOETIN ROWAN-EPBX (RETACRIT) 54006 UNIT/ML INJECTION Inject 0.79 mL (7,900 Units) [...] Vitals Temp Heart Rate Resp BP 02/20/25 17502/20/25175002/20/25 17502/20/251750 36.6 C (97.9 F) 86 18 135/81 SpO2 Temp Source Heart Rate Source Patient Position 02/20/25201202/20/25175002/20/25175002/20/251750 99 % Oral Monitor Lying BP Location FiO2 (%) 05/27/25 1751 -- Right arm Physical Exam Vitals [...] effusions. 5. Cholelithiasis, and [place] kidneys. Report Dictated on Electronically Signed By: [...] History: Diagnosis Date Acute renal failure (ARF) ([facility]) 10/19/2019 Anemia 12/30/2021 Calcification of abdominal aorta ([facility]) 10/08/202309/[address] abd Diverticulosis 10/08/2023 ESRD [place] hemodialysis [place] ([facility]) 10/26/2019 Hemodialysis patient [place] ([facility]) HTN (hypertension) 12/01/2022 Hypertension IgA nephropathy IgA nephropathy determined by biopsy of kidney 10/26/2019 Missed vaccination due to patient refusal 10/08/2023 Has a number of non-scientific based beliefs which interfere with his understanding and acceptance of the medical benefit of vaccination. Nonrheumatic aortic valve stenosis 10/08/2023 Paroxysmal A-fib ([facility]) ([facility]) 08/18/2023 Tobacco abuse 10/08/2023 [2] Past Surgical History: Procedure Laterality Date APPENDECTOMY CARDIAC CATHETERIZATION N/A 10/09/2024 Performed by Bob Watson MD at [facility] Cardiac Cath/EP Lab CARDIAC CATHETERIZATION Bilateral 11/01/2024 Performed by Bob Watson MD at [facility] Cardiac Cath/EP Lab CARDIAC CATHETERIZATION N/A 11/01/2024 Performed by Bob Watson MD at [facility] Cardiac Cath/EP Lab COLONOSCOPY N/A 01/24/2025 Performed by Chadd Davis MD at [facility] ENDOSCOPY FISTULAGRAM (HISTORICAL) Left 09/15/2021 LEFT UPPER ARM HX AV FISTULA CREATION IR EMBOLIZATION 10/14/2024 IR EMBOLIZATION 10/14/2024 [facility] SPECIAL PROCEDURES IR FISTULAGRAM 08/07/2022 IR [...] Patient Unable To Answer (12/01/2024) Received from [facility] Overall Financial Resource Strain (CARDIA) Difficulty of Paying Living Expenses: Patient unable to answer Food Insecurity: Patient Unable To Answer (12/01/2024) Received from [facility] Hunger Vital Sign Worried About Running Out of Food in the Last Year: Patient unable to answer Ran Out of Food in the Last Year: Patient unable to answer Transportation Needs: No Transportation Needs (01/18/2025) Received from [facility] Transportation Source Has lack of transportation kept you from medical appointments or from getting medications?: No Has lack of transportation kept you from meetings, work, or from getting things needed for daily living?: No Stress: No Stress Concern Present (01/18/2025) Received from [facility] [place] of Occupational Health - Occupational Stress Questionnaire Feeling of Stress : Not at all Social Connections: Patient Unable To Answer (12/01/2024) [facility] Social Connection and Isolation Panel [NHANES] Frequency of Communication with Friends and Family: Patient unable to answer Frequency of Social Gatherings with Friends and Family: Patient unable to answer Attends Hinduism Services: Patient unable to answer Active Member [...] was bright red and it stopped just MEDICAL SPECIALIST when in transport. documented in this encounter [facility] 02-14-2025 History of Presen t illness Narrative Images from the original note were not included. [facility] Infectious Diseases Advanced Practice Provider Outpatient Progress Note HISTORYOF PRESENT ILLNESS 59 yo male with PMHx significant for ESRD on HD via AVF, HTN, PAD who was admitted at [facility] (10/03/24-11/28/24) where he underwent AVR (10/12/24). [...] Pip-Tazo and Anidulafungin. Patient was discharged to [facility] on 11/28/24 where he was followed by our ID group for recurrent MSSA LRTI. He additionally had a sacral wound that was debrided to bone 01/02/25 (Sacral wound Cx + E faecalis, Clostridium clostridioforme). He was on a course of Amp-Sulbactam planned for 6 weeks through 02/13/25 and discharged to [facility] 01/18/25. Patient then presented to [facility] 01/19 after inadvertently self-dislodging tracheostomy. He was transferred to [facility] ICU for airway management and to determine if replacement tracheostomy was needed; decision was made to leave tracheostomy out. He was transferred to [facility] same day. 01/20 GI and critical care were consulted dt rectal bleeding. He was transferred back to ICU and had an EGD that showed non-bleeding duodenal ulcer. At that time sacral wound was also noted to be bleeding. Wound vac was applied. He continued on course of Amp-Sulbactam as planned through 02/13/25 and had tunneled line placed. Patient was discharged to [facility] 02/01/25. Patient presents today for EOT [...] Patient Unable To Answer (12/01/2024) Received from [facility] Overall Financial Resource Strain (CARDIA) Difficulty of Paying Living Expenses: Patient unable to answer Food Insecurity: Patient Unable To Answer (12/01/2024) Received from [facility] Hunger Vital Sign Worried About Running Out of Food in the Last Year: Patient unable to answer Ran Out of Food in the Last Year: Patient unable to answer Transportation Needs: No Transportation Needs (01/18/2025) Received from [facility] Transportation Source Has lack of transportation kept you from medical appointments or from getting medications?: No Has lack of transportation kept you from meetings, work, or from getting things needed for daily living?: No Physical Activity: Not on file Stress: No Stress Concern Present (01/18/2025) Received from [facility] [place] of Occupational Health - Occupational Stress Questionnaire Feeling of Stress : Not at all Social Connections: Patient Unable To Answer (12/01/2024) Received from [facility] Social Connection and Isolation Panel [NHANES] Frequency of Communication with Friends and Family: Patient unable to answer Frequency of Social Gatherings with Friends and Family: Patient unable to answer Attends Hinduism Services: Patient unable to answer Active Member of Clubs or Organizations: Patient unable to answer Attends Club or Organization Meetings: Patient unable to answer Marital Status: Patient unable to answer Intimate Partner Violence: Patient Unable To Answer (11/28/2024) Received from [facility] Medical Domestic Abuse Assessment Do you feel safe in your relationships at home?: Unable to assess Physical Abuse: Unable to assess [facility] Domestic Abuse - Type of Abuse: Not on file [facility] Domestic Abuse - Time Frame: Not on file [facility] Domestic Abuse - Signs and Symptoms: Not on file Verbal Abuse: Unable to assess [facility] Domestic Abuse - Reported To: Not on file Housing Stability: Patient Unable To Answer (12/01/2024) Received from [facility] Medical Housing Stability Vital Sign Unable to [...] neg 01/22 Acinetobacter baumannii PCR: neg Previous ([facility]) 01/02- sacral wound cx- E faecalis (Amp-S), skin ila, Clostridium clostrioforme 01/01- blood cx- 2/2 NG 12/30- blood cx- 2/2 NGTD 12/30- sputum cx- MSSA, resp ila 12/25- blood cx- 2/2 negative 12/14- sputum cx- MSSA, resp ila 12/14- MRSA pcr- MSSA 12/11- sputum cx- MSSA, resp ila Previous ([facility]) 11/28- L pleural fluid- negative 11/16- [...] 10/11- GI PCR- negative 10/03- blood cx- 2/ negative 10/03- 4plex- RSV Lines: AVF Tunneled [...] accounting for open encounter. Mikala MORAN PA-C [facility] Infectious Disease [1] Past Medical History: Diagnosis Date Acute renal failure (ARF) ([facility]) 10/19/2019 Anemia 12/30/2021 Calcification of abdominal aorta ([facility]) 10/08/202309/[address] abd Diverticulosis 10/08/2023 ESRD on hemodialysis [place] ([facility]) 10/26/2019 Hemodialysis patient ([facility] ([facility]) HTN (hypertension) 12/01/2022 Hypertension IgA nephropathy IgA nephropathy determined by biopsy of kidney 10/26/2019 Missed vaccination due to patient refusal 10/08/2023 Has a number of non-scientific based beliefs which interfere with his understanding and acceptance of the medical benefit of vaccination. Nonrheumatic aortic valve stenosis 10/08/2023 Paroxysmal A-fib ([facility]) ([facility]) 08/18/2023 Tobacco abuse 10/08/2023 [2] Family History Problem Relation Name Age of Onset No Known Problems Mother No Known Problems Father documented in this encounter [facility] 02-02-2025 History of Presen t illness Narrative Images from the original note were not included. Pt discharged to [facility] on 02/01/25. Updated tracker with hospital doses. Warfarin dosing instructions: 0.5 mg per day. New interacting meds: N/a Next SAILAJA appt: post SNF documented in this encounter [facility] 02-02-2025 History of Presen t illness Narrative Images from the original note were not included. Pt discharged to [facility] on 02/01/25. Updated tracker with hospital doses. Warfarin dosing instructions: 0.5 mg per day. New interacting meds: N/a Next SAILAJA appt: post SNF Patient is still at [facility] ([phone]). I left a message for ELIA Anderson, regarding discharge plans. documented in this encounter [facility] 02-02-2025 History of Presen t illness Narrative Images from the original note were not included. Pt discharged to [facility] on 02/01/25. Updated tracker with hospital doses. Warfarin dosing instructions: 0.5 mg per day. New interacting meds: N/a Next SAILAJA appt: post SNF Patient is still at [facility] ([phone]). I left a message for ELIA Anderson, [...] readmitted on 02/20 and discharged back to [facility] on 03/05. documented in this encounter [facility] 02-01-2025 Nurse Note Transport here to take patient to [facility]. Wound Vac tubing clamped and disconnected from wound vac. Facility will determine if tubing is compatible with their wound vacs. Wound Vac Dressing leaking with foam falling out. Dressing removed and W-D drsg applied. Patient Name: Jnu Snyder Patient : 1965 Acct: [id number] Date of Admission: 01/19/2025 Room[facility]: [facility] A Code Status: Full Code Allergies: Allergies Allergen Reactions Lisinopril Swelling and Angioedema Diagnosis: Patient Active Problem List Diagnosis Anemia Paroxysmal A-fib ([facility]) ([facility]) HTN (hypertension) ESRD on hemodialysis ([facility]) ([facility]) IgA nephropathy determined by biopsy of kidney Diverticulosis Nonrheumatic aortic valve stenosis Calcification of abdominal aorta ([facility]) Missed vaccination due to patient refusal Tobacco abuse Alcohol use disorder in remission Atrial flutter, unspecified type ([facility]) RSV (acute bronchiolitis due to respiratory syncytial virus) Aortic stenosis Upper GI bleed S/P AVR Acute hypoxic respiratory failure ([facility]) Acute encephalopathy Pneumoperitoneum Gastric ulceration Severe malnutrition (CMS/HCC) ([facility]) Pleural effusion Peritonitis due to fungus ([facility]) History of abdominal surgery Leg DVT (deep venous thromboembolism), acute, left ([facility]) 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, 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 of skin ([facility]) Tracheostomy dependence ([facility]) Leukocytosis Decubitus ulcer of sacral region, unstageable ([facility]) Pneumonia of both lungs due to methicillin susceptible Staphylococcus aureus (MSSA) ([facility]) Sacral osteomyelitis ([facility]) ([facility] Acute respiratory failure with hypoxia ([facility]) [J96.01] Tracheostomy care ([facility]) [Z43.0] 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[facility]) nursing home (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 Complication of tracheostomy ([facility]) ([facility]) BRBPR (bright red blood per rectum) [...] 01/31/25 0400 -- -- -- -- Diminished Ecchymosis;[place];Mark Warm;Dry [place];Gastrostomy tube Active 01/31/25 0801 Alert [...] 0010 CO2 27 01/31/2025 0010 BUN 15 01/31/20250 CREATININE 3.64 (H) 01/31/20259 CREATININE 9.99 (H) 10/27/2019544 CALCIUM 10.0 01/31/20250 PHOS 4.6 01/31/2025 0010 IV Drips and Rate/Dose sodium chloride, 20 mL/hr, Last Rate: 20 mL/hr (01/30/25 1838) Safety - Before each treatment: Dialysis Machine No.: [id number] RO Machine Number: [id number] Dialyzer Lot No.: [id number] Tubing Lot Number: [id number] All Connections Secure: Yes Venous Parameters Set: Yes Arterial Parameters Set: Yes NS Bag: Yes Saline Line Double Clamped: Yes Dialyzer: Nipro Prime Volume (mL): 200 mL RO Machine Number: [id number] RO Machine Log Sheet Completed: Yes Machine Alarm Self Test: Completed, Passed (722) (01/31/25742) Air Foam Detector: Tested, Proper Function, pH Reading Extracorporeal Circuit Tested for Integrity: Yes Machine Conductivity: 13.7 Manual Conductivity: 13.7 Manual Ph: 7 Bleach Test (Neg): Yes Bath Temperature: 36 C (96.8 F) Conductivity Meter Serial #: [id number] Machine Functioning Alarm Free? Yes Dialysis Bath: K+ (Potassium): 2 Ca+ (Calcium): 2.5 Na+ (Sodium): 137 HCO3 (Bicarb): 35 Bicarbonate Concentrate Lot No.: [id number] Acid Concentrate Lot No.: [id number] Chlorine Testing - Before each treatment and [...] Temporal 71 16 92 % -- 01/30/25 195 129/80 36.2 C (97.1 F) Temporal 80 [...] RN (First Initial, Last Name, Title): Taryn Lye RN Education Person Educated: Patient Knowledge Base: Substantial Barriers to Learning?: None Preferred method of Learning: Oral Topic(s): Call Light Education, Access Care, Signs and Symptoms of Infection, and Fluid Management Teaching Tools: Explanation Response to Education: Verbalized Understanding Patient arrived from [facility], Dr. 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 Complication of [...] na Date of Last Dressing Change: na johnnie [address]?: na Red [...] 01/29/25 0800 -- -- -- -- Clear [place];Mark Warm;Dry [place];Soft;Gastrostomy tube Active 01/29/25 0839 Alert (0) 3 Regular None (Room air) Clear [place] Warm;Dry;No swelling Soft Active 01/29/25 1210 Alert (0) 3 Regular None (Room air) Clear [place] -- -- -- Labs Lab Results Component [...] CALCIUM 9.8 01/29/2025336 PHOS 4.9 (H) 01/29/2025 0337 IV Drips and Rate/Dose sodium chloride, 20 mL/hr, Last Rate: 20 mL/hr (01/25/252003) Safety - Before each treatment: Dialysis Machine No.: [id number] Machine Number: [id number] Dialyzer Lot No.: [id number] Tubing Lot Number: [id number] All Connections Secure: Yes Venous Parameters Set: Yes Arterial Parameters Set: Yes NS Bag: Yes Saline Line Double Clamped: Yes Dialyzer: Nipro Prime Volume (mL): 200 mL RO Machine Number: [id number] RO Machine Log Sheet Completed: Yes Machine Alarm Self Test: Completed, Passed (01/29/25729) Air Foam Detector: Tested, Proper Function, pH Reading Extracorporeal Circuit Tested for Integrity: Yes Machine Conductivity: 13.8 Manual Conductivity: 13.8 Manual Ph: 7 Bleach Test (Neg): Yes Bath Temperature: 36 C (96.8 F) Conductivity Meter Serial #: [id number] Machine Functioning Alarm Free? Yes Dialysis Bath: K+ (Potassium): 3 Ca+ (Calcium): 2.5 Na+ (Sodium): 137 HCO3 (Bicarb): 35 Bicarbonate Concentrate Lot No.: [id number] Acid Concentrate Lot No.: [id number] Chlorine Testing - Before each treatment and [...] Yes Pt stable rmvd 521. Lines secure.. 05/05/25 0930 400 mL/min 830 ml/hr -100 mmHg 200 mmHg 210 600 Yes Pt sleeping, lines secure. Rmvd 676. Call light in reach 01/29/25 0948 400 mL/min 830 ml/hr -100 mmHg 210 mmHg 100 600 Yes Pt stable resting. Rmvd 839. Lines secure. Rmvd 846. 01/29/25 1000 400 mL/min 830 ml/hr -110 mmHg 210 mmHg 100 600 Yes Pt stable [id number]. Pt stable , sleeping 01/29/25 1018 400 [...] -- -- -- -- -- Tx completed [facility] 1999 Vital Signs Patient Vitals for [...] be restarted at 9 un/kg/hr,) Provider Name: Keuyrsarojjimbo Provider Role: Resident Method of Communication: Secure [...] Name: Jun Snyder Patient : 1965 Acct: [id number] Date of Admission: 01/19/2025 Room/Bed: T3-321/T3-321 A Code Status: Full Code Allergies: Allergies Allergen Reactions Lisinopril Swelling and Angioedema Diagnosis: Patient Active Problem List Diagnosis Anemia Paroxysmal A-fib (CMS/HCC) (HCC) HTN (hypertension) ESRD on hemodialysis (CMS/[facility]) (HCC) IgA nephropathy determined by biopsy [...] failure with hypoxia (HCC) [J96.01] Tracheostomy care ([facility]) [Z43.0] 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HCC) nursing home (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 Complication of [...] 8.7 01/26/2025 0248 HGB 8.9 (L) 01/26/2025 09 HGB 9.4 11/11/2024 0230 HCT 28.4 (L) 01/26/2025 0952 PLT 265 01/26/2025 0248 NA 136 01/26/2025 0248 K 5.1 01/26/2025 0248 CL 100 01/26/2025 0248 CO2 20 (L) 01/26/2025247 BUN 19 01/26/20258 CREATININE 3.37 (H) 01/26/2025 024 CREATININE 9.99 (H) 10/27/2019 0545 CALCIUM 9.0 01/26/20258 PHOS 5.3 (H) 01/26/2025247 IV Drips and Rate/Dose heparin, 5-30 Units/kg/hr, Last Rate: 7 Units/kg/hr (01/26/25 1219) sodium chloride, 20 mL/hr, Last Rate: 20 mL/hr (01/25/252003) Safety - Before each treatment: Dialysis Machine No.: [id number] RO Machine Number: [id number] Dialyzer Lot No.: [id number] Tubing Lot Number: [id number] All Connections Secure: Yes Venous Parameters Set: Yes Arterial Parameters Set: Yes NS Bag: Yes Saline Line Double Clamped: Yes Dialyzer: Nipro Prime Volume (mL): 200 mL RO Machine Number: [id number] RO Machine Log Sheet Completed: Yes Machine Alarm Self Test: Completed, Passed (1226) (01/26/25 1226) Air Foam Detector: Tested, Proper Function, pH Reading Extracorporeal Circuit Tested for Integrity: Yes Machine Conductivity: 13.9 Manual Conductivity: 14 Manual Ph: 7.4 Bleach Test (Neg): Yes Bath Temperature: 36 C (96.8 F) Conductivity Meter Serial #: [id number] Machine Functioning Alarm Free? Yes Dialysis Bath: K+ (Potassium): 2 Ca+ (Calcium): 2.5 Na+ (Sodium): 137 HCO3 (Bicarb): 35 Bicarbonate Concentrate Lot No.: [id number] Acid Concentrate Lot No.: [id number] Chlorine Testing - Before each treatment and [...] -- -- -- -- tx completed, UF [id number] Vital Signs Patient Vitals for the past [...] Name: Jun Snyder Patient : 1965 Acct: [id number] Date of Admission: 01/19/2025 Room/Bed: T3-321/T3-321 A Code Status: Full Code Allergies: Allergies Allergen Reactions Lisinopril Swelling and Angioedema Diagnosis: Patient Active Problem List Diagnosis Anemia Paroxysmal A-fib ([facility]/HCC) ([facility]) HTN (hypertension) ESRD on hemodialysis ([facility]) ([facility]) IgA nephropathy determined by biopsy of kidney Diverticulosis Nonrheumatic aortic valve stenosis Calcification of abdominal aorta (HCC) Missed vaccination due to patient refusal Tobacco abuse Alcohol use disorder in remission Atrial flutter, unspecified type ([facility]) RSV (acute bronchiolitis due to respiratory syncytial virus) Aortic stenosis Upper GI bleed S/P AVR Acute hypoxic respiratory failure ([facility]) Acute encephalopathy Pneumoperitoneum Gastric ulceration Severe malnutrition ([facility]) ([facility]) Pleural effusion Peritonitis due to fungus ([facility]) History of abdominal surgery Leg DVT (deep venous thromboembolism), acute, left ([facility]) 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, 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 of skin ([facility]) Tracheostomy dependence ([facility]) Leukocytosis Decubitus ulcer of sacral region, unstageable ([facility]) Pneumonia of both lungs due to methicillin susceptible Staphylococcus aureus (MSSA) ([facility]) Sacral osteomyelitis ([facility]) ([facility]) Acute respiratory failure with hypoxia ([facility]) [J96.01] Tracheostomy care ([facility]) [Z43.0] 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[facility]) nursing home (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 Complication of tracheostomy ([facility]) ([facility]) BRBPR (bright red blood per rectum) [...] - Before each treatment: Dialysis Machine No.: [id number] RO Machine Number: [id number] Dialyzer Lot No.: [id number] Tubing Lot Number: [id number] All Connections Secure: Yes Venous Parameters Set: Yes Arterial Parameters Set: Yes NS Bag: Yes Saline Line Double Clamped: Yes Dialyzer: Nipro Prime Volume (mL): 200 mL RO Machine Number: [id number] RO Machine Log Sheet Completed: Yes Machine Alarm Self Test: Completed, Passed (test passed at 0923) (01/24/25924) Air Foam Detector: Tested, Proper Function, pH Reading Extracorporeal Circuit Tested for Integrity: Yes Machine Conductivity: 13.8 Manual Conductivity: 13.8 Manual Ph: 7.2 Bleach Test (Neg): Yes (water check negative at 0910) Bath Temperature: 36 C (96.8 F) Conductivity Meter Serial #: [id number] Machine Functioning Alarm Free? Yes Dialysis Bath: K+ (Potassium): 3 Ca+ (Calcium): 2.5 Na+ (Sodium): 137 HCO3 (Bicarb): 35 Bicarbonate Concentrate Lot No.: [id number] Acid Concentrate Lot No.: [id number] Chlorine Testing - Before each treatment and every 4 hours: Time On: 929 Time Off: 1214 Treatment Goal: 0-2L as tolerated MAP >65 [...] Name: Jun Snyder Patient : 1965 Acct: [id number] Date of Admission: 01/19/2025 Room/Bed: T3321/T3321 A Code Status: Full Code Allergies: Allergies Allergen Reactions Lisinopril Swelling and Angioedema Diagnosis: Patient Active Problem List Diagnosis Anemia Paroxysmal A-fib (CMS/HCC) (HCC) HTN (hypertension) ESRD on hemodialysis (CMS/HCC) ([facility]) IgA nephropathy determined by biopsy of [...] failure with hypoxia (HCC) [J96.01] Tracheostomy care ([facility]) [Z43.0] 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HCC) 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 Complication of tracheostomy (CMS/HCC) ([facility]) Treatment: Hemodialysis 1:1 Priority: Routine Location: [...] Other (Comment) None None None None -- 01/22/2551 Alert (0) None (Room air) Diminished Soft;Nondistended Active -- -- -- -- -- -- Relaxation technique;Medication (See MAR) Labs Lab Results Component Value Date/Time WBC 10.6 01/22/2025 0419 HGB 8.0 (L) 01/22/2025 041 HGB 9.4 11/11/2024 0230 HCT 25.1 (L) 01/22/2025 041 PLT 330 01/22/2025 0419 NA 132 (L) 01/22/2025418 K 4.4 01/22/2025 041 CL 94 (L) 01/22/2025 041 CO2 25 01/22/2025 0419 BUN 53 (H) 01/22/2025418 CREATININE 4.18 (H) 01/22/2025418 CREATININE 9.99 (H) 10/27/2019 0545 CALCIUM 9.8 01/22/2025418 PHOS 6.8 (H) 01/22/2025 041 IV Drips and Rate/Dose Safety - Before each treatment: Dialysis Machine No.: [id number] [employer] Machine Number: [id number] Dialyzer Lot No.: [id number] Tubing Lot Number: [id number] All Connections Secure: Yes Venous Parameters Set: Yes Arterial Parameters Set: Yes NS Bag: Yes Saline Line Double Clamped: Yes Dialyzer: Nipro Prime Volume (mL): 250 mL RO Machine Number: [id number] RO Machine Log Sheet Completed: Yes Machine Alarm Self Test: Completed, Passed (01/22/25850) Air Foam Detector: Tested, Proper Function, pH Reading Extracorporeal Circuit Tested for Integrity: Yes Machine Conductivity: (13.8) Manual Conductivity: 14 Manual Ph: 7.2 Bleach Test (Neg): Yes Bath Temperature: 36 C (96.8 F) Conductivity Meter Serial #: [id number] Machine Functioning Alarm Free? Yes Dialysis Bath: K+ (Potassium): 2 Ca+ (Calcium): 2.5 Na+ (Sodium): 137 HCO3 (Bicarb): 35 Bicarbonate Concentrate Lot No.: [id number] Acid Concentrate Lot No.: [id number] Chlorine Testing - Before each treatment and [...] Name: Jun Snyder Patient : 1965 Acct: [id number] Date of Admission: 01/19/2025 Room/Bed: [facility] A Code Status: Full Code Allergies: Allergies Allergen Reactions Lisinopril Swelling and Angioedema Diagnosis: Patient Active Problem List Diagnosis Anemia Paroxysmal A-fib (CMS/HCC) (HCC) HTN (hypertension) ESRD on hemodialysis ([facility]/HCC) ([facility]) IgA nephropathy determined by biopsy of kidney Diverticulosis Nonrheumatic aortic valve stenosis Calcification of abdominal aorta (HCC) Missed vaccination due to patient refusal Tobacco abuse Alcohol use disorder in remission Atrial flutter, unspecified type (HCC) RSV (acute bronchiolitis due to respiratory syncytial virus) Aortic stenosis Upper GI bleed S/P AVR Acute hypoxic respiratory failure ([facility]) Acute encephalopathy Pneumoperitoneum Gastric ulceration Severe malnutrition (CMS/HCC) ([facility]) Pleural effusion Peritonitis due to fungus ([facility]) History of abdominal surgery Leg DVT (deep venous thromboembolism), acute, left ([facility]) 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, 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) Tracheostomy dependence ([facility]) Leukocytosis Decubitus ulcer of sacral region, unstageable ([facility]) Pneumonia of both lungs due to methicillin susceptible Staphylococcus aureus (MSSA) ([facility]) Sacral osteomyelitis ([facility]/HCC) ([facility]) Acute respiratory failure with hypoxia ([facility]) [J96.01] Tracheostomy care ([facility]) [Z43.0] 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[facility]) nursing home (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 Complication of tracheostomy ([facility]) ([facility]) Treatment: Hemodialysis 1:1 Priority: Routine Location: [...] Date/Time WBC 10.5 01/20/2025513 HGB 8.2 (L) 01/20/2025 0801 HGB 9.4 11/11/2024 0230 HCT 25.8 (L) 01/20/2025 0801 PLT 279 01/20/2025513 NA 135 (L) 01/20/2025513 K 4.8 01/20/2025513 CL 98 01/20/2025513 CO2 22 01/20/2025513 BUN 91 (H) 01/20/2025513 CREATININE 4.31 (H) 01/20/2025513 CREATININE 9.99 (H) 10/27/2019 0545 CALCIUM 9.2 01/20/2025 0514 PHOS 6.1 (H) 01/20/2025 0514 IV Drips and Rate/Dose pantoprazole (ProtoNix) 80 mg in sodium chloride 0.9 % 100 mL (0.8 mg/mL) infusion, 8 mg/hr Safety - Before each treatment: Dialysis Machine No.: [id number] RO Machine Number: [id number] Dialyzer Lot No.: [id number] Tubing Lot Number: [id number] All Connections Secure: Yes Venous Parameters Set: Yes Arterial Parameters Set: Yes NS Bag: Yes Saline Line Double Clamped: Yes Dialyzer: Nipro Prime Volume (mL): 200 mL RO Machine Number: [id number] RO Machine Log Sheet Completed: Yes Machine Alarm Self Test: Completed, Passed (1000) (01/20/25 1000) Air Foam Detector: Tested, Proper Function, pH Reading Extracorporeal Circuit Tested for Integrity: Yes Machine Conductivity: 13.6 Manual Conductivity: 13.8 Manual Ph: 7.2 Bleach Test (Neg): Yes Bath Temperature: 36 C (96.8 F) Conductivity Meter Serial #: [id number] Machine Functioning Alarm Free? Yes Dialysis Bath: K+ (Potassium): 2 Ca+ (Calcium): 2.5 Na+ (Sodium): 137 HCO3 (Bicarb): 35 Bicarbonate Concentrate Lot No.: [id number] Acid Concentrate Lot No.: [id number] Chlorine Testing - Before each treatment and [...] 80 600 Yes ID at bedside, UF [email or web address] 01/20/25 1130 400 mL/min 600 ml/hr -140 mmHg 210 mmHg 80 600 Yes Primary RN at bedside, blood clots noted coming from rectum, GI aware, UF removed 586. 01/20/25 1145 400 mL/min 600 ml/hr -140 mmHg 220 mmHg 80 600 Yes Primary RN at bedside, Midorine givenat this time, UF removed 726 01/20/25 [...] lab value (Hgb 6.6) Provider Name: LEONA chip crusher operator ATT Provider Role: Attending physician Method of [...] Education: Verbalized Understanding documented in this encounter [facility] 02-01-2025 Miscellaneous Notes Formattin g of this note might be different from the original. 7000 created in [facility] per TCC request. Facility notified via [facility]. Authorization approved for the [facility] through 02/02/25, discharge orders placed, ROSENDO completed. Transportation placed and confirmed for today 02/01/25 at 330pm to the [facility], physician/patient/corporate secretary/RN aware. TRI[employer] COUNCIL MEMBER tasked to send 7000 and DC summary. Hep B panels, 3 days of HD flowsheets, MAR and [facility] Call placed to the [facility] to confirm able to still take patient [...] Nutrition Support Outcome: Progressing Updates placed to [facility] via [facility] per [facility] request. Await review and response regarding ability [...] Nutrition Support Outcome: Progressing Message sent to Slate Splitting Supervisor to start [facility] for [facility]. Problem: Pain - Adult Goal: [...] order to start auth to return to [facility] per previous TCC note of [...] or Improved Outcome: Progressing Updates placed to [facility] TCC request. Await review and response regarding ability to accept. TCC notified. Electronically signed by [facility] Sabino Rodrigues Tasked [facility] to send updates to [facility], per their request. Warfarin bridging per MD notes, patient will need NEW auth for return to [facility]. Problem: Pain - Adult Goal: Verbalizes/displays adequate [...] Progressing Problem: Problem Interventions Goal: Nutrition Support 01/28/2025 0355 by Jun Schafer RN Outcome: Progressing 01/28/2025 0237 by Jun Schafer RN Outcome: Progressing Problem: [...] Nutrition Support Outcome: Progressing [facility] request. Care Management Progress Note PCU transfer pending. Received one unit PRBC this AM for low Hgb. HD today. Heparin drip ongoing. IVAB (plan for 6 week course). Wound vac to sacral wound. Room Air. Dysphagia diet; pureed. DC plan - [facility]. Facility updated via careport. TRI[employer] COUNCIL MEMBER asked to send dialysis note per their [...] - Payne indicated: N/A OPAT placed to [facility] via [facility]port per TCC request. 01/25/25 1047 Rapid Rounds Attendance Insurance Adviser Planned Discharge Disposition SNF Today we still await Administering IV medications;Hand Cutter recommendations (comment);Clinical stability;Symptomatic control;Post-discharge arrangement completion (comment) Patient remains on MICU. S/P colonoscopy 01/24-negative for active bleeding. Heparin drip resumed post procedure. Wound vac to sacral wound; IVAB till 02/13; OPAT under chart review > media. Plan for MBSS. Room Air. DC plan - [facility] when medically appropriate. CM will [...] Goal: Nutrition Support Outcome: Progressing [facility] Patient Name: Jun Snyder Procedure Date: 01/24/2025 12:37 PM Gender: Male Date of : 1965 Age: 59 Admit Type: Inpatient Note Status: Finalized Endoscopist: Chadd Davis MD, [id number] Procedure: Colonoscopy Indications: Evaluation of unexplained GI [...] by the physician, the nurse and the manager contact in the pre-procedure area in the procedure [...] anticoagulant use Procedure Code(s): --- Professional --- 72269, Colonoscopy, flexible; diagnostic, including collection of specimen(s) by brushing or washing, when performed (separate procedure) --- Technical --- 61353, Colonoscopy, flexible; diagnostic, including collection of specimen(s) by brushing or washing, when performed (separate procedure) Diagnosis Code(s): --- Professional --- K64.0, First degree hemorrhoids K92.1, Melena (includes Hematochezia) Z79.01, 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 teacher (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 anticoagulants K57.30, Diverticulosis of large intestine without perforation or abscess without bleeding --- Technical --- K64.0, First degree hemorrhoids K92.1, Melena (includes Hematochezia) Z79.01, 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 teacher (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 anticoagulants K57.30, Diverticulosis of large intestine without perforation or abscess without bleeding CPT copyright 2021 [employer]. All rights reserved. The codes documented in this report are preliminary and upon director of sustainability programs review may be revised to meet current [...] Early Mobility/Exercise Safety Screen: Activity: Bed mobility -[facility] Score: Lying in bed LDAs Peripheral IV 01/19/25 Right Forearm (Active) Number of days: 4 Peripheral IV 01/23/25 Anterior;Distal;Right Forearm (Active) Number of days: 0 Enterostomy Gastric 20 Fr. LUQ (Active) Number of days: 70 - Central Line indicated: N/A - Christian indicated: N/A Problem: Pain - Adult Goal: [...] Note: Diagnosis: Principal Problem: Complication of tracheostomy ([facility]) ([facility]) Active Problems: Severe malnutrition (CMS/[facility]) ([facility]) Chief Complaint: Jun Snyder is a [...] HCPOA. Palliative SW discussed patient with Floor BRANDT Kincaid. Patient appropriate to complete HCPOA. Palliative SW and CM met with patient at bedside. Palliative SW introduced self, reviewed role on the palliative care team, reviewed Health Care Power of Food Service Aide (HCPOA) with patient. Patient agreeable to complete [...] and SW; ko Nelson primary agent and Tomalaurence, secondary agent. DC plan - return to [facility]. CM will continue to follow Length of Stay (Days): 1 GMLOS: 4.5 Images from the original note were not included. [facility] Palliative Care Transitions of Care Note Jun Snyder : 1965 ADMIT DATE: 01/19/2025 DISCHARGE DATE: TBD PRIMARY CARE PHYSICIAN: Leilani Han CODE STATUS: Full Code DISCHARGE DIAGNOSES: Principal [...] to have bile peritonitis" 11/28/24: transferred to [facility] He ended up developing sacral ulcer and osteomyelitis at [facility]. He then ended up dislodging his tracheostomy, and was brought to [facility] ED for further care. Palliative care consulted for goals of care. Goals of care - Patient has capacity to make medical decisions - legal surrogate decision maker HCPOA Omar, 1st alternate is significant other Toma - goals of care include: 1) to continue current management, continue with aggressive medical therapy, procedures, antibiotics at this time - planning to eventually discharge to [facility] - will forward chart to Palliative RN [...] Sacral Osteomyelitis - currently on antibiotics at [facility] for 6 weeks (through 02/13/25) - sacral [...] AV replacement Supratherapeutic INR - [facility] Labor valve in 09/2024 - coumadin held due to bleeding and supratherapeutic levels Chronic respiratory failure s/p tracheostomy Tracheostomy dislodgement - has been saturating well without trach on RA so has not been replaced FOLLOW UP TESTING, PENDING RESULTS OR REFERRALS AT TRANSITIONAL CARE VISIT: No DISPOSITION: Skilled Rehab Facility FACILITY/HOME CARE AGENCY NAME: [facility] Follow up with Palliative Care on patient [...] Safety: The patient was placed on a cardiac nurse practitioner and vital signs, pulse oximetry, and level [...] as signed by this procedure note. [facility] Name: Jun Snyder Procedure Date: 01/21/2025 9:59 AM Gender: Male Date of : 1965 Age: 59 Admit Type: Inpatient Note Status: Finalized Endoscopist: ELDON Alba MD, [id number] Procedure: Upper GI endoscopy Indications: Acute post [...] by the physician, the nurse and the manager contact in the pre-procedure area in the procedure [...] loss: None. Procedure Code(s): --- Professional --- 74579, Esophagogastroduodenoscopy, flexible, transoral; diagnostic, including collection of specimen(s) by brushing or washing, when performed (separate procedure) --- Technical --- 26740, Esophagogastroduodenoscopy, flexible, transoral; diagnostic, including collection of [...] D62, Acute posthemorrhagic anemia CPT copyright 2021 [employer]. All rights reserved. The codes documented in this report are preliminary and upon director of sustainability programs review may be revised to meet current [...] Care Plan Patient was transferred over from [facility] after self-dislodged tracheostomy this morning around 0600. [...] and treatment plans Return referral placed to [facility] via Careport per TCC request. Await review and response regarding ability to accept. TCC notified. 01/19/25 1300 Rapid Rounds Attendance Insurance Adviser Planned Discharge Disposition SNF Today we still await Clinical stability;Hand Cutter recommendations (comment);Symptomatic control;Post-discharge arrangement completion (comment) Patient admitted due to trach dislodgement. Patient was discharged from LT[facility] to the [facility]; there only a matter of hours per [...] He would like patient to return to [facility] SNF is able at DC. Does not want patient to return to [facility]. TRIBAL COUNCIL MEMBER asked to place referral to [facility]. CM will continue to follow for DC [...] improved Outcome: Progressing documented in this encounter [facility] 02-01-2025 History of Presen t illness Narrative Images from the original note were not included. [facility] - Infectious Diseases Advanced [...] cx- MSSA, resp ila 11/01- blood cx- 2 negative 10/25- H pylori ag- negative 10/19- [...] of use of antimicrobials. Mikala MORAN PA-C [facility] Infectious Disease Nephrology Progress Note Following for [...] not included. Speech-Language Pathology SPEECH LANGUAGE PATHOLOGY [facility] Dysphagia Treatment Note Patient Name: Jun [...] strategies. Plan & Recommendations Plan: Continue acute SHEET HANGER therapy per initial plan of care and [...] Expected End: 02/02/25 Resolved: 01/25/25 Therapy Time SHEET HANGER Individual Minutes Time In: 816 Time Out: 829 Minutes: 13 KARLA Salazar Hospitalist Progress Note Subjective: Admit Date: 01/19/2025 PCP: Leilani Han Room#: 1C-144/1C-144 A Chief Complaint Patient presents with Tracheostomy Tube Change Brief Hospital course: Jun Snyder is a 59 y.o. male who who presented to [facility] 01/19 after inadvertent removal of his tracheostomy. He was transferred to [facility] ICU for surgical evaluation. On arrival [...] line on 01/29 Nephrology following, on dialysis SHEET HANGER following PT/OT recommends SNF Patient will be [...] History: Diagnosis Date Acute renal failure (ARF) ([facility]) 10/19/2019 Anemia 12/30/2021 Calcification of abdominal aorta ([facility]) 10/08/202309/[address] abd Diverticulosis 10/08/2023 ESRD on hemodialysis ([facility] ([facility]) 10/26/2019 Hemodialysis patient ([facility] ([facility]) HTN (hypertension) 12/01/2022 Hypertension IgA nephropathy IgA nephropathy determined by biopsy of kidney 10/26/2019 Missed vaccination due to patient refusal 10/08/2023 Has a number of non-scientific based beliefs which interfere with his understanding and acceptance of the medical benefit of vaccination. Nonrheumatic aortic valve stenosis 10/08/2023 Paroxysmal A-fib ([facility]) ([facility]) 08/18/2023 Tobacco abuse 10/08/2023 Adult diet Dysphagia - Soft and Bite Sized 24HR INTAKE/OUTPUT: Intake/Output Summary (Last 24 hours) at 02/01/2025 0904 Last data filed at 01/31/2025 1121 Gross per 24 hour Intake 300 ml Output -- Net 300 ml LABS: CBC: Recent Labs 01/30/25 0047 01/30/25 1224 01/31/25 0010 01/31/25205102/01/25 011 WBC 8.8 -- 9.3 -- 7.9 RBC [...] 20 mL/hr, Last Rate: 20 mL/hr (01/30/25 8307) Assessment Data: (CAT1) Reviewed 2 notes from [...] by ID -S/p tunneled central line placement -SHEET HANGER follow, dysphagia diet -PT OT DC recommend [...] MD Division of Hospital Medicine Inpatient Medical Services/[facility] Anticoagulation Management Service ([facility]) Inpatient Warfarin Consult HPI: Jun Snyder is a 59 y.o. male admitted on 01/19/2025 for Complication of tracheostomy ([facility]) ([facility]) [J95.00] Past Medical History: Diagnosis Date Acute renal failure (ARF) ([facility]) 10/19/2019 Anemia 12/30/2021 Calcification of abdominal aorta ([facility]) 10/08/202309/[address] abd Diverticulosis 10/08/2023 ESRD on hemodialysis ([facility] ([facility]) 10/26/2019 Hemodialysis patient ([facility] ([facility]) HTN (hypertension) 12/01/2022 Hypertension IgA nephropathy IgA nephropathy determined by biopsy of kidney 10/26/2019 Missed vaccination due to patient refusal 10/08/2023 Has a number of non-scientific based beliefs which interfere with his understanding and acceptance of the medical benefit of vaccination. Nonrheumatic aortic valve stenosis 10/08/2023 Paroxysmal A-fib ([facility]) ([facility]) 08/18/2023 Tobacco abuse 10/08/2023 Patient is [...] Dose 02/01 2.0 0.5mg 01/31 2.2 0.5mg 6 2.5 HOLD 01/29 2.4 Held 01/28 [...] Tiffanie Dial RPh [facility] is available daily [phone] via [employer]. If no response on [employer] Chat then please page [phone]. Images from the original note were not included. OCCUPATIONAL THERAPY [facility] Re-Evaluation Name/MRN: Jair Snyder ([id number]) Evaluation Date: 01/31/2025 Date of : 1965 [...] History: Diagnosis Date Acute renal failure (ARF) ([facility]) 10/19/2019 Anemia 12/30/2021 Calcification of abdominal aorta ([facility]) 10/08/202309/[address] abd Diverticulosis 10/08/2023 ESRD on hemodialysis ([facility]) ([facility]) 10/26/2019 Hemodialysis patient [place] ([facility]) HTN (hypertension) 12/01/2022 Hypertension IgA nephropathy IgA nephropathy determined by biopsy of kidney 10/26/2019 Missed vaccination due to patient refusal 10/08/2023 Has a number of non-scientific based beliefs which interfere with his understanding and acceptance of the medical benefit of vaccination. Nonrheumatic aortic valve stenosis 10/08/2023 Paroxysmal A-fib ([facility]) ([facility]) 08/18/2023 Tobacco abuse 10/08/2023 Past Surgical History: Past Surgical History: Procedure Laterality Date APPENDECTOMY CARDIAC CATHETERIZATION N/A 10/09/2024 Performed by Bob Watson MD at [facility] Cardiac Cath/EP Lab CARDIAC CATHETERIZATION Bilateral 11/01/2024 Performed by Bob Watson MD at [facility] Cardiac Cath/EP Lab CARDIAC CATHETERIZATION N/A 11/01/2024 Performed by Bob Watson MD at [facility] Cardiac Cath/EP Lab COLONOSCOPY N/A 01/24/2025 Performed by Chadd Davis MD at [facility] ENDOSCOPY FISTULAGRAM (HISTORICAL) Left 09/15/2021 LEFT UPPER ARM HX AV FISTULA CREATION IR EMBOLIZATION 10/14/2024 IR EMBOLIZATION 10/14/2024 [facility] SPECIAL PROCEDURES IR FISTULAGRAM 08/07/2022 IR FISTULAGRAM 08/07/2022 [facility] IR IMAGING TONSILLECTOMY (HISTORICAL) Admission Diagnosis: Patient Active Problem List Diagnosis Date Noted Severe malnutrition ([facility]) ([facility]) 01/19/2025 Complication of tracheostomy ([facility]) ([facility]) 01/19/2025 nursing home (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 01/12/2025 Acute respiratory failure with hypoxia ([facility]) [J96.01] 01/08/2025 Tracheostomy care ([facility]) [Z43.0] 01/08/2025 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[facility]) 01/08/2025 Sacral osteomyelitis ([facility]) ([facility]) 01/03/2025 Pneumonia of both lungs due to methicillin susceptible Staphylococcus aureus (MSSA) ([facility]) 01/01/2025 Leukocytosis 12/30/2024 Decubitus ulcer of sacral region, unstageable ([facility]) 12/30/2024 Peritonitis due to fungus ([facility]) 11/30/2024 History of abdominal surgery 11/30/2024 Leg DVT (deep venous thromboembolism), acute, left ([facility]) 11/30/2024 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, 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 of skin ([facility]) 11/30/2024 Tracheostomy dependence ([facility]) 11/30/2024 Pleural effusion 11/28/2024 Gastric ulceration 2024 Atrial flutter, unspecified type ([facility]) 10/03/2024 RSV (acute bronchiolitis due to respiratory syncytial virus) 10/03/2024 Diverticulosis 10/08/2023 Nonrheumatic aortic valve stenosis 10/08/2023 Calcification of abdominal aorta ([facility]) 10/08/2023 Missed vaccination due to patient refusal 10/08/2023 Tobacco abuse 10/08/2023 Alcohol use disorder in remission 10/08/2023 Paroxysmal A-fib ([facility] ([facility]) 08/18/2023 HTN (hypertension) 12/01/2022 ESRD on hemodialysis ([facility] ([facility]) 10/26/2019 IgA nephropathy determined by biopsy of kidney 10/26/2019 BRBPR (bright red blood per rectum) 01/19/2025 Aortic stenosis 10/03/2024 Upper GI bleed 10/03/2024 S/P AVR 10/03/2024 Acute hypoxic respiratory failure ([facility]) 10/03/2024 Acute encephalopathy 10/03/2024 Pneumoperitoneum 10/03/2024 [...] of Care supervision is transferred to a [facility] Therapy Services Occupational Therapist. Goals and/or treatment plan was established in collaboration with patient/family/other representatives. Images from the original note were not included. Speech-Language Pathology SPEECH LANGUAGE PATHOLOGY [facility] Dysphagia Treatment Note Patient Name: Jun Snyder Evaluation Date: 01/31/2025 Date of : 1965 Admission Date: 01/19/2025 2:13 AM Age: 59 y.o. Room[facility]Bed: [facility] A Subjective Patient alert and [...] diet and for oropharyngeal strengthening. Continue acute SHEET HANGER therapy per initial plan of care and [...] Expected End: 02/02/25 Resolved: 01/25/25 Therapy Time SHEET HANGER Individual Minutes Time In: 1454 Time Out: 1515 Minutes: 21 FRANKLIN Carmona Images from the original note were not included. OCCUPATIONAL THERAPY [facility] Name/MRN: Jair Snyder ([id number]) Date: 01/31/2025 Attempted OT re-eval once pt returned from dialysis, pt very fatigued. Initially responsive to OT then stops conversing and unable to remain roused. Will follow and attempt as able. RONNY Ramirez/Tameka Images from the original note were not included. [facility] - Infectious Diseases Advanced Practice [...] negative 01/22 A baumannii screen: negative Previous ([facility]) 01/02- sacral wound cx- E faecalis [...] cx- MSSA, resp ila 11/01- blood cx- 2 negative 10/25- H pylori ag- negative 10/19- [...] of use of antimicrobials. Mikala MORAN PA-C [facility] Infectious Disease Images from the original note were not included. OCCUPATIONAL THERAPY [facility] Name/MRN: Jair Snyder ([id number]) Date: 01/31/2025 Attempted OT re-eval this AM, pt OOR at dialysis. Will follow and re-attempt as able. RONNY Ramirez/L Nephrology Progress Note Following for ESRD Pt [...] any questions or concerns Bree Molina APRN APPLICATION HELPER A-G MECHANICAL TEST TECHNICIAN [facility] [phone] Pt seen and examined independently by me. I reviewed with RIPSAW GRADER-APPLICATION HELPER the medical history and the findings on physical examination. I discussed the patient s diagnosis and concur with the treatment plan as documented in his note. Please call [phone] or message me through [employer] with any questions or concerns. [facility] Anticoagulation Management Service ([facility]ILA[facility]) Inpatient Warfarin Consult HPI: Jun Snyder is a 59 y.o. male admitted on 01/19/2025 for Complication of tracheostomy ([facility] ([facility]) [J95.00] Past Medical History: Diagnosis Date Acute renal failure (ARF) ([facility]) 10/19/2019 Anemia 12/30/2021 Calcification of abdominal aorta ([facility]) 10/08/202309/[address] abd Diverticulosis 10/08/2023 ESRD on hemodialysis ([facility] ([facility]) 10/26/2019 Hemodialysis patient ([facility] ([facility]) HTN (hypertension) 12/01/2022 Hypertension IgA nephropathy IgA nephropathy determined by biopsy of kidney 10/26/2019 Missed vaccination due to patient refusal 10/08/2023 Has a number of non-scientific based beliefs which interfere with his understanding and acceptance of the medical benefit of vaccination. Nonrheumatic aortic valve stenosis 10/08/2023 Paroxysmal A-fib ([facility] ([facility]) 08/18/2023 Tobacco abuse 10/08/2023 Patient is [...] 2.2* Date INR Dose 01/31 2.2 0.5mg 56 2.5 HOLD 01/29 2.4 Held 01/28 2.2 [...] dose accordingly 3. Will facilitate f/u at [facility] upon discharge Tiffanie Dial RPh SAILAJA is available daily [phone] via [employer] Chat. If no response on [employer] Chat then please page [phone]. Hospitalist Progress Note Subjective: Admit Date: 01/19/2025 PCP: Leilani Han Room#: 1C-144/1C-144 A Chief Complaint Patient presents with Tracheostomy Tube Change Brief Hospital course: Jun Snyder is a 59 y.o. male who who presented to [facility] 01/19 after inadvertent removal of his tracheostomy. He was transferred to [facility] ICU for surgical evaluation. On arrival [...] line on 01/29 Nephrology following, on dialysis SHEET HANGER following PT recommends SNF Interval History: 01/31/2025-No overnight issues. Patient is seen and examined Patient is resting in his bed Dialysis today Denies any new acute complaints Labs reviewed, ESRD picture, hemoglobin 8.8, stable Case and plan discussed with patient and bedside nurse. All questions answered. Past Medical History: Past Medical History: Diagnosis Date Acute renal failure (ARF) ([facility]) 10/19/2019 Anemia 12/30/2021 Calcification of abdominal aorta ([facility]) 10/08/202309/[address] abd Diverticulosis 10/08/2023 ESRD on hemodialysis [place] ([facility]) 10/26/2019 Hemodialysis patient ([facility] ([facility]) HTN (hypertension) 12/01/2022 Hypertension IgA nephropathy IgA nephropathy determined by biopsy of kidney 10/26/2019 Missed vaccination due to patient refusal 10/08/2023 Has a number of non-scientific based beliefs which interfere with his understanding and acceptance of the medical benefit of vaccination. Nonrheumatic aortic valve stenosis 10/08/2023 Paroxysmal A-fib ([facility] ([facility]) 08/18/2023 Tobacco abuse 10/08/2023 Adult diet [...] by ID -S/p tunneled central line placement -SHEET HANGER follow, dysphagia diet -PT OT DC planning [...] MD Division of Hospital Medicine Inpatient Medical Services/[facility] Anticoagulation Management Service ([facility]) Inpatient Warfarin Consult HPI: Jun Snyder is a 59 y.o. male admitted on 01/19/2025 for Complication of tracheostomy [place] ([facility]) [J95.00] Past Medical History: Diagnosis Date Acute renal failure (ARF) ([facility]) 10/19/2019 Anemia 12/30/2021 Calcification of abdominal aorta ([facility]) 10/08/202309/[address] abd Diverticulosis 10/08/2023 ESRD on hemodialysis ([facility] ([facility]) 10/26/2019 Hemodialysis patient ([facility] ([facility]) HTN (hypertension) 12/01/2022 Hypertension IgA nephropathy IgA nephropathy determined by biopsy of kidney 10/26/2019 Missed vaccination due to patient refusal 10/08/2023 Has a number of non-scientific based beliefs which interfere with his understanding and acceptance of the medical benefit of vaccination. Nonrheumatic aortic valve stenosis 10/08/2023 Paroxysmal A-fib ([facility] ([facility]) 08/18/2023 Tobacco abuse 10/08/2023 Patient is [...] dose accordingly 3. Will facilitate f/u at [facility] upon discharge Fatuma Odonnell RPh SAILAJA is available daily [phone] via [employer] Chat. If no response on [employer] Chat then please page [phone]. Images from the original note were not included. OCCUPATIONAL THERAPY [facility] Name/MRN: Jair Snydre ([id number]) Date: 01/30/2025 Attempted OT services however, Pt [...] candidate for diet upgrade. Christina Limon MS, CCC/SHEET HANGER Nutrition Assessment Type and Reason for Visit: [...] Severe who remains admitted after presenting to [facility] on 01/19 after inadvertent removal of his tracheostomy. He was transferred to [facility] ICU for surgical evaluation, however pt was maintaining appropriate O2 saturations on room air and the decision was made to leave the tracheostomy out. Pt transferred to [facility] later that day (01/19). Course c/b acute [...] MWF schedule with Nephrology following. Transferred to [facility] 01/27. ID continues following for sacral osteomyelitis and recs IV Unasyn x 6 weeks--> stop date 02/13. Course c/b anxiousness and paranoia, often refusing care and wound dressing changes. In terms of nutrition, pt was only receiving nutrition via [facility] MEDICAL SPECIALIST. He was NPO 01/19, Nepro @ 50mls/hr initiated 01/20 which ran until pt was made NPO/CLD for colonoscopy prep 01/23. Remained NPO 01/24, underwent MBSS 01/25 with recs for pureed/thin which remains his current diet with SHEET HANGER following and recommending the same. PO intake [...] bedscale, 10/31: 200#, 11/28: 161#, 01/18: 142#) [place] Body Weight (lbs) (Calculated): 166 lbs [place] Body Weight (Kg) (Calculated): 75 kg % [place] Body Weight (Calculated): 70.5 % BMI (kg/m2) [...] soon to determine Marilu Pollock RD Contact: *[phone] Images from the original note were not included. PHYSICAL THERAPY [facility] Treatment Note Name/MRN: Jair Snyder ([id number]) Date of : 1965 Age: 59 y.o. [...] Timed Code Treatment Minutes: (2FA) Jocelin Ramirez MEDICAL SPECIALIST Cosigned by Betty Grady, PT at 01/30/2025 1:28 PM EDT Patient receiving other care, will attempt smoking cessation counseling at a later date. Images from the original note were not included. [facility] - Infectious Diseases Advanced Practice [...] F) Temporal 73 15 95 % -- 01/30/25512 -- -- -- -- 15 -- -- [...] negative 01/22 A baumannii screen: negative Previous ([facility]) 01/02- sacral wound cx- E faecalis (Amp-S), skin ila, Clostridium clostrioforme 01/01- blood cx- 2/2 NG 12/30- blood cx- 2/2 NGTD 12/30- sputum cx- MSSA, resp ila 12/25- blood cx- 2/2 negative 12/14- sputum cx- MSSA, resp ila 12/14- MRSA pcr- MSSA 12/11- sputum cx- MSSA, resp ila Previous ([facility]) 11/28- L pleural fluid- negative 11/16- [...] be of moderate complexity. Mikala MORAN PA-C [facility] Infectious Disease Hospitalist Progress Note Subjective: Admit Date: 01/19/2025 PCP: Leilani Han Room#: -144/-144 A Chief Complaint Patient presents with Tracheostomy Tube Change Brief Hospital course: Jun Snyder is a 59 y.o. male who who presented to [facility] 01/19 after inadvertent removal of his tracheostomy. He was transferred to [facility] ICU for surgical evaluation. On arrival [...] HD successfully. hemodynamically stable. Transferred out to [facility] 01/27 ID following for sacral osteomyelitis, s/p wound debridement to bone on 01/02, cultures grew E faecalis and Clostridium, continue with renally dosed ampicillin sulbactam for 6 weeks course through 02/13/2025, needs tunneled line, status post IR CVC tunneled line on 01/29 Nephrology following, on dialysis SHEET HANGER following PT recommends SNF Interval History: 01/30/2025-No [...] History: Diagnosis Date Acute renal failure (ARF) ([facility]) 10/19/2019 Anemia 12/30/2021 Calcification of abdominal aorta ([facility]) 10/08/202309/[address] abd Diverticulosis 10/08/2023 ESRD on hemodialysis [place] ([facility]) 10/26/2019 Hemodialysis patient [place] ([facility]) HTN (hypertension) 12/01/2022 Hypertension IgA nephropathy IgA nephropathy determined by biopsy of kidney 10/26/2019 Missed vaccination due to patient refusal 10/08/2023 Has a number of non-scientific based beliefs which interfere with his understanding and acceptance of the medical benefit of vaccination. Nonrheumatic aortic valve stenosis 10/08/2023 Paroxysmal A-fib ([facility]) ([facility]) 08/18/2023 Tobacco abuse 10/08/2023 Adult diet [...] by ID -S/p tunneled central line placement -SHEET HANGER follow, dysphagia diet -PT OT DC planning [...] MD Division of Hospital Medicine Inpatient Medical Services/[facility] Nephrology Progress Note Mr. Jun Snyder is [...] concerns. Wellington Nicole MD 01/30/2025 9:08 AM [facility] [address], [address] [place] [address] Office: [phone] Images from the original note were not included. Speech-Language Pathology SPEECH LANGUAGE PATHOLOGY [facility] Dysphagia Treatment Note Patient Name: Jun Snyder Evaluation Date: 01/29/2025 Date of : 1965 Admission Date: 01/19/2025 2:13 AM Age: 59 y.o. Room/Bed: [facility] A Subjective Patient alert, confused and restless, [...] Expected End: 02/02/25 Resolved: 01/25/25 Therapy Time SHEET HANGER Individual Minutes Time In: 1438 Time Out: 1456 Minutes: 18 FRANKLIN Bailon Images from the original note were not included. [facility] - Infectious Diseases Attending [...] low complexity. Radha Yee MD [facility] Nephrology Progress Note Mr. Jun Snyder is [...] status and labs. Please message me through [employer] chat with any questions or concerns. Wellington Nicole MD 01/29/2025 10:13 AM [facility] [address], [address] [place] [address] Office: [phone] Images from the original note were not included. Hospitalist Progress Note 01/29/2025 Subjective: Admit Date: 01/19/2025 PCP: Leilani Han Room#: 1C-144/1C-144 A Brief Hospital Summary: Jun Snyder is a 59 y.o. male who who presented to [facility] 01/19 after inadvertent removal of his tracheostomy. He was transferred to [facility] ICU for surgical evaluation. On arrival [...] HD successfully. hemodynamically stable. Transferred out to [facility] 01/27 Interval History: No overnight issues. Patient [...] History: Diagnosis Date Acute renal failure (ARF) ([facility]) 10/19/2019 Anemia 12/30/2021 Calcification of abdominal aorta ([facility]) 10/08/202309/[address] abd Diverticulosis 10/08/2023 ESRD on hemodialysis [place] ([facility]) 10/26/2019 Hemodialysis patient [place] ([facility]) HTN (hypertension) 12/01/2022 Hypertension IgA nephropathy IgA nephropathy determined by biopsy of kidney 10/26/2019 Missed vaccination due to patient refusal 10/08/2023 Has a number of non-scientific based beliefs which interfere with his understanding and acceptance of the medical benefit of vaccination. Nonrheumatic aortic valve stenosis 10/08/2023 Paroxysmal A-fib ([facility]) ([facility]) 08/18/2023 Tobacco abuse 10/08/2023 LABS: CBC: [...] QT Interval 413 QTC Interval 515 P [place] 69 QRS [place] 93 T Wave [place] 87 MS Interval 148 Impression Sinus rhythm Left atrial [...] sodium chloride 0.9 % 100 mL IVPB (Add-Lee), 3,000 mg, IntraVENous, q24h, Radha Yee MD, [...] mg, IntraVENous, q5 min PRN, Earlene Lozano RIPSAW GRADER - APPLICATION HELPER, 5 mg at 01/25/25 1846 metoprolol tartrate (Lopressor) tablet 25 mg, 25 mg, Per G Tube, BID, Earlene Lozano RIPSAW GRADER - APPLICATION HELPER, 25 mg at 01/28/25 2222 midodrine (Proamatine) [...] by ID Ordered tunneled central line placement SHEET HANGER follow, dysphagia diet PT OT DC planning Past Medical History: Diagnosis Date Acute renal failure (ARF) ([facility]) 10/19/2019 Anemia 12/30/2021 Calcification of abdominal aorta ([facility]) 10/08/202309/[address] abd Diverticulosis 10/08/2023 ESRD on hemodialysis [place] ([facility]) 10/26/2019 Hemodialysis patient [place] ([facility]) HTN (hypertension) 12/01/2022 Hypertension IgA nephropathy IgA nephropathy determined by biopsy of kidney 10/26/2019 Missed vaccination due to patient refusal 10/08/2023 Has a number of non-scientific based beliefs which interfere with his understanding and acceptance of the medical benefit of vaccination. Nonrheumatic aortic valve stenosis 10/08/2023 Paroxysmal A-fib ([facility]) ([facility]) 08/18/2023 Tobacco abuse 10/08/2023 Plan As above -am labs, replace lytes prn -Drug toxicity monitor: coumadin, cbc GI bleeding -increase activity -DVT prophylaxis: [] Lovenox [] Heparin [] SCDs [x] Encourage ambulation [x] Already on Anticoagulation Advance Directive: Full Code Family discussion: Anticipated Discharge - Date - 01/30- - Location - Skilled Facility - Pending the following - stability, central line placement Total time spent (which include face to face and non face to face encounters) : 52 minutes Kamran Lira MD Division of Hospitalist Medicine Inpatient Medical Services/[facility] Images from the original note were not included. [facility] Wound Care Progress Note Jun Snyder AGE: [...] diverticulosis, IgA nephropathy, severe that presented to [facility] ED from a facility due to trach [...] History: Diagnosis Date Acute renal failure (ARF) ([facility]) 10/19/2019 Anemia 12/30/2021 Calcification of abdominal aorta ([facility]) 10/08/202309/[address] abd Diverticulosis 10/08/2023 ESRD on hemodialysis ([facility]) ([facility]) 10/26/2019 Hemodialysis patient [place] ([facility]) HTN (hypertension) 12/01/2022 Hypertension IgA nephropathy IgA nephropathy determined by biopsy of kidney 10/26/2019 Missed vaccination due to patient refusal 10/08/2023 Has a number of non-scientific based beliefs which interfere with his understanding and acceptance of the medical benefit of vaccination. Nonrheumatic aortic valve stenosis 10/08/2023 Paroxysmal A-fib ([facility]) ([facility]) 08/18/2023 Tobacco abuse 10/08/2023 PAST SURGICAL HISTORY Past Surgical History: Procedure Laterality Date APPENDECTOMY CARDIAC CATHETERIZATION N/A 10/09/2024 Performed by Bob Watson MD at [facility] Cardiac Cath/EP Lab CARDIAC CATHETERIZATION Bilateral 11/01/2024 Performed by Bob Watson MD at [facility] Cardiac Cath/EP Lab CARDIAC CATHETERIZATION N/A 11/01/2024 Performed by Bob Watson MD at [facility] Cardiac Cath/EP Lab COLONOSCOPY N/A 01/24/2025 Performed by Chadd Davis MD at [facility] ENDOSCOPY FISTULAGRAM (HISTORICAL) Left 09/15/2021 LEFT UPPER ARM HX AV FISTULA CREATION IR EMBOLIZATION 10/14/2024 IR EMBOLIZATION 10/14/2024 [facility] SPECIAL PROCEDURES IR FISTULAGRAM 08/07/2022 IR [...] Medication Sig Dispense Refill epoetin rowan-epbx (Retacrit) 33398 UNIT/ML injection Inject 0.79 mL (7,900 Units) [...] to follow Recommend to follow up at [facility] Outpatient wound care center after [...] Gill DO at 01/29/2025 4:37 PM EDT [facility] Anticoagulation Management Service ([facility]IL[facility]JA) Inpatient Warfarin Consult HPI: Jun Snyder is a 59 y.o. male admitted on 01/19/2025 for Complication of tracheostomy (CMS/HCC) (HCC) [J95.00] Past Medical History: Diagnosis Date Acute renal failure (ARF) ([facility]) 10/19/2019 Anemia 12/30/2021 Calcification of abdominal aorta ([facility]) 10/08/202309/[address] abd Diverticulosis 10/08/2023 ESRD [place] hemodialysis [place] ([facility]) 10/26/2019 Hemodialysis patient [place] ([facility]) HTN (hypertension) 12/01/2022 Hypertension IgA nephropathy IgA nephropathy determined by biopsy of kidney 10/26/2019 Missed vaccination due to patient refusal 10/08/2023 Has a number of non-scientific based beliefs which interfere with his understanding and acceptance of the medical benefit of vaccination. Nonrheumatic aortic valve stenosis 10/08/2023 Paroxysmal A-fib ([facility] ([facility]) 08/18/2023 Tobacco abuse 10/08/2023 Patient is on warfarin for Afib, mechanical AVR and has a goal INR 2.0 - 3.0. Warfarin is currently managed by facility, has yet to be seen by [facility]. Pt's home dose of warfarin is [...] dose accordingly 3. Will facilitate f/u at [facility] upon discharge Fatumafernando Odonnell RPh SAILAJA is available daily [phone] via [employer]. If no response on [employer] Chat then please page [phone]. [facility] Nephrology Progress Note Mr. Jun Snyder is [...] status and labs. Please message me through [employer] chat with any questions or concerns. Wellington Nicole MD 01/28/2025 2:08 PM [facility] [address], [address] [place] [address] Office: [phone] Hospitalist Progress Note 01/28/2025 Subjective: Admit Date: 01/19/2025 PCP: Leilani aHn Room#: 1C-144/1C-144 A Brief Hospital Summary: Jun Snyder is a 59 y.o. male who who presented to [facility] 01/19 after inadvertent removal of his tracheostomy. He was transferred to [facility] ICU for surgical evaluation. On arrival [...] HD successfully. hemodynamically stable. Transferred out to [facility] 01/27 Interval History: No overnight issues. Up [...] History: Diagnosis Date Acute renal failure (ARF) ([facility]) 10/19/2019 Anemia 12/30/2021 Calcification of abdominal aorta ([facility]) 10/08/202309/[address] abd Diverticulosis 10/08/2023 ESRD on hemodialysis [place] ([facility]) 10/26/2019 Hemodialysis patient [place] ([facility]) HTN (hypertension) 12/01/2022 Hypertension IgA nephropathy IgA nephropathy determined by biopsy of kidney 10/26/2019 Missed vaccination due to patient refusal 10/08/2023 Has a number of non-scientific based beliefs which interfere with his understanding and acceptance of the medical benefit of vaccination. Nonrheumatic aortic valve stenosis 10/08/2023 Paroxysmal A-fib ([facility] ([facility]) 08/18/2023 Tobacco abuse 10/08/2023 LABS: CBC: [...] QT Interval 413 QTC Interval 515 P [place] 69 QRS [place] 93 T Wave [place] 87 MS Interval 148 Impression Sinus rhythm Left atrial [...] PRN, Steve Lassiter MD, 1,000 mg at 05/03/25 1231 ampicillin-sulbactam (Unasyn) 3,000 mg in sodium chloride 0.9 % 100 mL IVPB (Add-Lee), 3,000 mg, IntraVENous, q24h, Radha Yee MD, [...] mg, IntraVENous, q5 min PRN, Earlene Lozano, RIPSAW GRADER - APPLICATION HELPER, 5 mg at 01/25/25 1846 metoprolol tartrate (Lopressor) tablet 25 mg, 25 mg, Per G Tube, BID, Earlene Lozano, RIPSAW GRADER - APPLICATION HELPER, 25 mg at 01/28/25 0848 midodrine (Proamatine) [...] for sacral wound by ID PT OT SHEET HANGER follow, dysphagia diet Past Medical History: Diagnosis Date Acute renal failure (ARF) ([facility]) 10/19/2019 Anemia 12/30/2021 Calcification of abdominal aorta (HCC) 10/08/202309/[address] abd Diverticulosis 10/08/2023 ESRD on hemodialysis ([facility]) ([facility]) 10/26/2019 Hemodialysis patient [place] ([facility]) HTN (hypertension) 12/01/2022 Hypertension IgA nephropathy IgA nephropathy determined by biopsy of kidney 10/26/2019 Missed vaccination due to patient refusal 10/08/2023 Has a number of non-scientific based beliefs which interfere with his understanding and acceptance of the medical benefit of vaccination. Nonrheumatic aortic valve stenosis 10/08/2023 Paroxysmal A-fib ([facility] ([facility]) 08/18/2023 Tobacco abuse 10/08/2023 Plan As [...] MD Division of Hospitalist Medicine Inpatient Medical Services/[facility] Anticoagulation Management Service ([facility]) Inpatient Warfarin Consult HPI: Jun Snyder is a 59 y.o. male admitted on 01/19/2025 for Complication of tracheostomy ([facility] ([facility]) [J95.00] Past Medical History: Diagnosis Date Acute renal failure (ARF) ([facility]) 10/19/2019 Anemia 12/30/2021 Calcification of abdominal aorta ([facility]) 10/08/202309/[address] abd Diverticulosis 10/08/2023 ESRD on hemodialysis [place] ([facility]) 10/26/2019 Hemodialysis patient ([facility] ([facility]) HTN (hypertension) 12/01/2022 Hypertension IgA nephropathy [...] dose accordingly 3. Will facilitate f/u at [facility] upon discharge Natali Leonardo is available daily [phone] via [employer]. If no response on [employer] Chat then please page [phone]. [facility] Anticoagulation Management Service ([facility]) Inpatient Warfarin Consult HPI: Jun Snyder is a 59 y.o. male admitted on 01/19/2025 for Complication of tracheostomy ([facility] ([facility]) [J95.00] Past Medical History: Diagnosis Date Acute renal failure (ARF) ([facility]) 10/19/2019 Anemia 12/30/2021 Calcification of abdominal aorta ([facility]) 10/08/202309/[address] abd Diverticulosis 10/08/2023 ESRD on hemodialysis [place] ([facility]) 10/26/2019 Hemodialysis patient [place] ([facility]) HTN (hypertension) 12/01/2022 Hypertension IgA nephropathy IgA nephropathy determined by biopsy of kidney 10/26/2019 Missed vaccination due to patient refusal 10/08/2023 Has a number of non-scientific based beliefs which interfere with his understanding and acceptance of the medical benefit of vaccination. Nonrheumatic aortic valve stenosis 10/08/2023 Paroxysmal A-fib ([facility] ([facility]) 08/18/2023 Tobacco abuse 10/08/2023 Patient is [...] 1.9* Date INR Dose 01/27 1.9 1mg 2 1.8 1 mg 01/25 1.7 0.5 mg [...] Vu Guido PharmD [facility] is available daily [phone] via [employer]. If no response on [employer] Chat then please page [phone]. [facility] Respiratory Care Department Progress Note As [...] the care of this patient, [facility] Progress Note Mr. Jun Snyder is [...] from last 7 days Lab Units 01/27/25 00001/26/258 01/25/25 0251 MAGNESIUM mg/dL 1.9 2.0 2.1 Results from last 7 days Lab Units 01/27/25 0006 01/26/25205201/26/2552 01/26/25 0248 01/25/25 0953 01/25/25 0251 WBC [...] Nicole MD 01/27/2025 7:11 AM [facility] [address] [place] [address], [address] [place] [address] Office: [phone] ICU Progress Note Name: Jun Snyder : 1965(59 y.o.) Date: 01/27/25 Team: MICU Attending: DARRYN HIGGINS Subjective: Hospital Summary: Jun Snyder is a 59 y.o. male who who presented to [facility] 01/19 after inadvertent removal of his tracheostomy. He was transferred to [facility] ICU for surgical evaluation. On arrival [...] Normal [] Scar/Lesion/Mass Inspection of teeth/lips/gums Dentition: [x][place] Teeth []Dentures Lips/Gums: [x]Intact []Lesion Present Mucosa: [x][place] []Moist []Dry Neck: External Appearance Overall Appearance: [...] 72 hours. Glucose: Recent Labs 01/24/25 1217 01/25/2525001/26/258 01/27/25 0006 GLUCOSE 77 74 75 115* Procal: No results for input(s): "PROCAL" in the last 72 hours. CBC: Recent Labs 01/25/25 02501/25/25 0953 01/26/2524701/26/25 0952 01/26/25205201/27/25 0006 WBC 10.2 [...] displayed. ABGs: No results for input(s): "PHART", "GLR6DVA", "PO2ART", "LWG0WUZ", "SO2ART", "R4JMITEF" in the last 72 hours. Lactic Acid: [...] Plan: Principal Problem: Complication of tracheostomy (CMS/HCC) ([facility]) Active Problems: Severe malnutrition (CMS/HCC) ([facility]) BRBPR (bright red blood per rectum) [...] H/H and PT/INR q12 - Diet per SHEET HANGER recs Appreciate Recs: Pureed solids and Thin [...] apply Betadine and allow to dry, leave GAS DISPATCHER daily and PRN - PVRs for circulation [...] and warfarin Disposition: Stable for Transfer to [facility] Cosigned by Darryn Higgins MD at 01/27/2025 [...] PT/OT - Remains stable for transfer to [facility]. Code Status: Full Code Disposition: ok for [facility] Time spent preparing to see the patient, obtaining/reviewing separately obtained history, completing an appropriate medical examination of the patient, ordering medications/tests/procedures, documenting clinical information on the EMR, and/or coordinating care is a subsequent visit: 35 minutes (Level II). Darryn Higgins MD Pulmonary and Critical Care Medicine Attending Pager #[phone] Images from the original note were not included. PHYSICAL THERAPY [facility] Name/MRN: Jair Snyder ([id number]) Date: 01/26/2025 Attempt Note Pt on iHD. Will re-attempt as able. Chantal Rossi PT [facility] Progress Note Mr. Jun Snyder is [...] 7 days Lab Units 01/26/25 0248 01/25/25 0251 01/24/25 0429 MAGNESIUM mg/dL 2.0 [...] status and labs. Please message me through [employer] chat with any questions or concerns. Wellington Nicole MD 01/26/2025 1:55 PM [facility] [address], [address] [place] [address] Office: [phone] Speech-Language Pathology Pt is a hold at this time, as he is receiving dialysis. Will re-attempt next date as schedule permits. Treva Xena, MS. CCC-SHEET HANGER ICU Transfer Checklist Hospital course: 59 y.o. male PMH trach s/p removal, peg, HTN, afib, ESRD on TTS HD, aortic stenosis s/p mechanical valve who presented to [facility] 01/19 after inadvertent removal of his tracheostomy. Transferred to [facility] ICU for surgical evaluation. On arrival he was maintaining appropriate O2 saturations on room air and decision was made to leave the tracheostomy out. Transferred to [facility] but later developed rectal bleeding and came [...] convert to PO if able) None Anticipated [place] Medications (ICU initiated) or Dose Changes and Indication No Permanently Discontinued Home Medications and Reason for medication contraindication No Payne Catheter (please remove if able. Note: place DC order) No Central Line (please remove if able. Note: place DC order) No Transfer Discussed with: Dr. Russell [facility] If additional questions for ICU team within 24 hours of ICU transfer, page pinion staker ICU resident for clarifications. [facility] Anticoagulation Management Service ([facility]JA) Inpatient Warfarin Consult HPI: Jun Snyder is a 59 y.o. male admitted on 01/19/2025 for Complication of tracheostomy (CMS/HCC) ([facility]) [J95.00] Past Medical History: Diagnosis Date Acute renal failure (ARF) ([facility]) 10/19/2019 Anemia 12/30/2021 Calcification of abdominal aorta ([facility]) 10/08/202309/[address] abd Diverticulosis 10/08/2023 ESRD [place] hemodialysis [place]) 10/26/2019 Hemodialysis patient [place] ([facility]) HTN (hypertension) 12/01/2022 Hypertension IgA nephropathy IgA nephropathy determined by biopsy of kidney 10/26/2019 Missed vaccination due to patient refusal 10/08/2023 Has a number of non-scientific based beliefs which interfere with his understanding and acceptance of the medical benefit of vaccination. Nonrheumatic aortic valve stenosis 10/08/2023 Paroxysmal A-fib [place] ([facility]) 08/18/2023 Tobacco abuse 10/08/2023 Patient is [...] dose accordingly 3. Will facilitate f/u at [facility] upon discharge Adalberto Deleon PharmD [facility] is available daily [phone] via [employer]. If no response on [employer] Chat then please page [phone]. Images from the original note were not included. [facility] - Infectious Diseases Attending Progress [...] Date/Time NA 136 01/26/2025 0248 K 5.1 01/26/20258 CL 100 01/26/2025 0248 CO2 20 (L) 01/26/2025 0248 BUN 19 01/26/2025 0248 CREATININE 3.37 (H) 01/26/2025 0248 CREATININE 9.99 (H) 10/27/2019 0545 GLUCOSE 75 [...] from the original note were not included. [facility] Wound Care Progress Note Jun Snyder AGE: [...] diverticulosis, IgA nephropathy, severe that presented to [facility] ED from a facility due to trach dislodgement. Wound Care consulted for Pressure Injury sacrum and Ischemic ulcers to left toes" Patient resting in [place] with floor RN present at bedside. Wound vac changed at time of visit with patient tolerating well. Denies any needs. PAST MEDICAL HISTORY Past Medical History: Diagnosis Date Acute renal failure (ARF) ([facility]) 10/19/2019 Anemia 12/30/2021 Calcification of abdominal aorta ([facility]) 10/08/202309/[address] abd Diverticulosis 10/08/2023 ESRD on hemodialysis ([facility]) ([facility]) 10/26/2019 Hemodialysis patient [place]) HTN (hypertension) 12/01/2022 Hypertension IgA nephropathy IgA nephropathy determined by biopsy of kidney 10/26/2019 Missed vaccination due to patient refusal 10/08/2023 Has a number of non-scientific based beliefs which interfere with his understanding and acceptance of the medical benefit of vaccination. Nonrheumatic aortic valve stenosis 10/08/2023 Paroxysmal A-fib ([facility]) ([facility]) 08/18/2023 Tobacco abuse 10/08/2023 PAST SURGICAL HISTORY Past Surgical History: Procedure Laterality Date APPENDECTOMY CARDIAC CATHETERIZATION N/A 10/09/2024 Performed by Bob Watson MD at [facility] Cardiac Cath/EP Lab CARDIAC CATHETERIZATION Bilateral 11/01/2024 Performed by Bob Watson MD at [facility] Cardiac Cath/EP Lab CARDIAC CATHETERIZATION N/A 11/01/2024 Performed by Bob Watson MD at [facility] Cardiac Cath/EP Lab COLONOSCOPY N/A 01/24/2025 Performed by Chadd Davis MD at [facility] ENDOSCOPY FISTULAGRAM (HISTORICAL) Left 09/15/2021 LEFT UPPER ARM HX AV FISTULA CREATION IR EMBOLIZATION 10/14/2024 IR EMBOLIZATION 10/14/2024 [facility] SPECIAL PROCEDURES IR FISTULAGRAM 08/07/2022 IR FISTULAGRAM 08/07/2022 [facility] IR IMAGING TONSILLECTOMY (HISTORICAL) FAMILY HISTORY Family [...] Medication Sig Dispense Refill epoetin rowan-epbx (Retacrit) 89172 UNIT/ML injection Inject 0.79 mL (7,900 Units) [...] to follow Recommend to follow up at [facility] Outpatient wound care center after [...] 59 y.o. male who who presented to [facility] 01/19 after inadvertent removal of his tracheostomy. He was transferred to [facility] ICU for surgical evaluation. On arrival [...] C (98 F) (01/26/25 0355) Pulse 83 (01/26/25399) Resp (!) 11 (01/26/25399) [...] Normal [] Scar/Lesion/Mass Inspection of teeth/lips/gums Dentition: [x][place] Teeth []Dentures Lips/Gums: [x]Intact []Lesion Present Mucosa: [x][place] []Moist []Dry Neck: External Appearance Overall Appearance: [...] within last 24 hours- BMP: Recent Labs 01/24/2542801/24/25121601/25/2525001/26/25 0248 NA 139 138 138 136 K [...] last 72 hours. Glucose: Recent Labs 01/23/25 0601/23/25231601/24/2542801/24/25121601/25/25 02501/26/25 0248 GLUCOSE -- -- 74 77 74 [...] displayed. ABGs: No results for input(s): "PHART", "NLX2BCV", "PO2ART", "MVK3KPM", "SO2ART", "S4IIEMNS" in the last 72 hours. Lactic Acid: [...] Plan: Principal Problem: Complication of tracheostomy (CMS/HCC) ([facility]) Active Problems: Severe malnutrition (CMS/HCC) ([facility]) BRBPR (bright red blood per rectum) [...] peripheral blood smear pending - Diet per SHEET HANGER recs - continue q12 H/H and PT/INR [...] on heparin and warfarin Disposition: Transfer to [facility] Cosigned by Darryn Higgins MD at 01/26/2025 [...] hemoglobin stable today. Stable for transfer to [facility]. Code Status: Full Code Disposition: Transfer to [facility] Time spent preparing to see the patient, obtaining/reviewing separately obtained history, completing an appropriate medical examination of the patient, ordering medications/tests/procedures, documenting clinical information on the EMR, and/or coordinating care is a subsequent visit: 35 minutes (Level II). Darryn Higgins MD Pulmonary and Critical Care Medicine Attending Pager #[phone] Images from the original note were not included. [facility] - Infectious Diseases Attending Progress [...] 10/27/2019 0545 GLUCOSE 74 01/25/2025250 CALCIUM 10.1 01/25/2025250 PROT 7.6 01/22/2025 041 BILITOT 0.9 01/22/2025 0419 ALKPHOS 274 (H) 01/22/2025 0419 AST 51 (H) 01/22/2025 0419 ALT 44 (H) 01/22/2025 0419 PROCAL 4.10 (H) 12/31/2024 0108 PROCAL 4.25 (H) 11/23/2024 1430 PROCAL 3.47 (H) 11/01/2024 0732 Lab Results Component Value Date/Time WBC 10.2 01/25/2025250 HGB 7.7 (L) 01/25/2025 1302 HGB 9.4 [...] stenosis s/p mechanical valve who presented to [facility] 01/19 after inadvertent removal of his tracheostomy. Transferred to [facility] ICU for surgical evaluation. On arrival [...] convert to PO if able) None Anticipated [place] Medications (ICU initiated) or Dose Changes and Indication No Permanently Discontinued Home Medications and Reason for medication contraindication No Payne Catheter (please remove if able. Note: place DC order) No Central Line (please remove if able. Note: place DC order) No Transfer Discussed with: Dr. Russell [facility] If additional questions for ICU team within 24 hours of ICU transfer, page pinion staker ICU resident for clarifications. Images from the original note were not included. Speech-Language Pathology SPEECH LANGUAGE PATHOLOGY [facility] Modified Barium Swallow Study Patient Name: Jun Snyder Evaluation Date: 01/25/2025 Date of : 1965 Admission Date: 01/19/2025 2:13 AM Age: 59 y.o. Room/Bed: T3321/T3321 A IMPRESSION: The patient presents with moderate [...] swallow). Pt would benefit from skilled acute SHEET HANGER services to ensure diet tolerance, train swallow [...] History: Diagnosis Date Acute renal failure (ARF) ([facility]) 10/19/2019 Anemia 12/30/2021 Calcification of abdominal aorta ([facility]) 10/08/202309/[address] abd Diverticulosis 10/08/2023 ESRD on hemodialysis ([facility]) ([facility]) 10/26/2019 Hemodialysis [place] ([facility]) HTN (hypertension) 12/01/2022 Hypertension IgA nephropathy IgA nephropathy determined by biopsy of kidney 10/26/2019 Missed vaccination due to patient refusal 10/08/2023 Has a number of non-scientific based beliefs which interfere with his understanding and acceptance of the medical benefit of vaccination. Nonrheumatic aortic valve stenosis 10/08/2023 Paroxysmal A-fib ([facility]) ([facility]) 08/18/2023 Tobacco abuse 10/08/2023 Past Surgical History: Past Surgical History: Procedure Laterality Date APPENDECTOMY CARDIAC CATHETERIZATION N/A 10/09/2024 Performed by Bob Watson MD at [facility] Cardiac Cath/EP Lab CARDIAC CATHETERIZATION Bilateral 11/01/2024 Performed by Bob Watson MD at [facility] Cardiac Cath/EP Lab CARDIAC CATHETERIZATION N/A 11/01/2024 Performed by Bob Watson MD at [facility] Cardiac Cath/EP Lab COLONOSCOPY N/A 01/24/2025 Performed by Chadd Davis MD at [facility] ENDOSCOPY FISTULAGRAM (HISTORICAL) Left 09/15/2021 LEFT UPPER ARM HX AV FISTULA CREATION IR EMBOLIZATION 10/14/2024 IR EMBOLIZATION 10/14/2024 [facility] SPECIAL PROCEDURES IR FISTULAGRAM 08/07/2022 IR FISTULAGRAM 08/07/2022 [facility] IR IMAGING TONSILLECTOMY (HISTORICAL) Admission Diagnosis: Patient Active Problem List Diagnosis Date Noted Severe malnutrition ([facility]) ([facility]) 01/19/2025 Complication of tracheostomy ([facility]) ([facility]) 01/19/2025 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 01/12/2025 Acute respiratory failure with hypoxia ([facility]) [J96.01] 01/08/2025 Tracheostomy care ([facility]) [Z43.0] 01/08/2025 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[facility]) 01/08/2025 Sacral osteomyelitis ([facility]) ([facility]) 01/03/2025 Pneumonia of both lungs due to methicillin susceptible Staphylococcus aureus (MSSA) ([facility]) 01/01/2025 Leukocytosis 12/30/2024 Decubitus ulcer of sacral region, unstageable ([facility]) 12/30/2024 Peritonitis due to fungus ([facility]) 11/30/2024 History of abdominal surgery 11/30/2024 Leg DVT (deep venous thromboembolism), acute, left ([facility]) 11/30/2024 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, 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 of skin ([facility]) 11/30/2024 Tracheostomy dependence ([facility]) 11/30/2024 Pleural effusion 11/28/2024 Gastric ulceration 2024 Atrial flutter, unspecified type (HCC) 10/03/2024 RSV (acute bronchiolitis due to respiratory syncytial virus) 10/03/2024 Diverticulosis 10/08/2023 Nonrheumatic aortic valve stenosis 10/08/2023 Calcification of abdominal aorta (HCC) 10/08/2023 Missed vaccination due to patient refusal 10/08/2023 Tobacco abuse 10/08/2023 Alcohol use disorder in remission 10/08/2023 Paroxysmal A-fib (CMS/HCC) (HCC) 08/18/2023 HTN (hypertension) 12/01/2022 ESRD on hemodialysis (CMS/HCC) ([facility]) 10/26/2019 IgA nephropathy determined by biopsy [...] diverticulosis, IgA nephropathy, severe that presented to [facility] ED from a facility due to trach dislodgement. Per patient, was trying to disconnect his vent to transfer to another room but accidentally pulled out his tracheostomy. This event happened approximately 45 minutes before ED arrival. ED attempted to place tracheostomy tube back but were unsuccessful. Decision was made to transfer patient to [facility] ICU for further airway management and [...] Expected End: 02/02/25 Resolved: 01/25/25 Therapy Time SHEET HANGER Individual Minutes Time In: 1145 Time Out: 1205 Minutes: 20 Christina Nunez MA, CCC/SHEET HANGER [facility] Anticoagulation Management Service ([facility]) Inpatient Warfarin Consult HPI: Jun Snyder is a 59 y.o. male admitted on 01/19/2025 for Complication of tracheostomy ([facility]) ([facility]) [J95.00] Past Medical History: Diagnosis Date Acute renal failure (ARF) ([facility]) 10/19/2019 Anemia 12/30/2021 Calcification of abdominal aorta ([facility]) 10/08/202309/[address] abd Diverticulosis 10/08/2023 ESRD on hemodialysis (CMS/HCC) ([facility]) 10/26/2019 Hemodialysis patient (CMS/HCC) ([facility]) HTN (hypertension) 12/01/2022 Hypertension IgA nephropathy IgA nephropathy determined by biopsy of kidney 10/26/2019 Missed vaccination due to patient refusal 10/08/2023 Has a number of non-scientific based beliefs which interfere with his understanding and acceptance of the medical benefit of vaccination. Nonrheumatic aortic valve stenosis 10/08/2023 Paroxysmal A-fib ([facility]) ([facility]) 08/18/2023 Tobacco abuse 10/08/2023 Patient is on warfarin for Afib, mechanical AVR and has a goal INR 2.0 - 3.0. Warfarin is currently managed by facility, has yet to be seen by [facility]. Pt's home dose of warfarin is [...] dose accordingly 3. Will facilitate f/u at [facility] upon discharge Adalberto Deleon PharmD, PharmD [facility] is available daily [phone] via [employer]. If no response on [employer] Chat then please page [phone]. [facility] Progress Note Mr. Jun Snyder is [...] status and labs. Please message me through go[employer] chat with any questions or concerns. Wellington Nicole MD 01/25/2025 11:44 AM [facility] [address] [place] [address], [address] [place] [address] Office: [phone] Images from the original note were not [...] time - [facility] - will forward chart to Palliative RN [...] AV replacement Supratherapeutic INR - [facility] Labor valve in 09/2024 - coumadin held due to bleeding and supratherapeutic levels Chronic respiratory failure s/p tracheostomy Tracheostomy dislodgement - has been saturating well without trach on RA so has not been replaced Palliative Care Encounter - Code Status: Full Code - Jun Snyder has been seen in consultation by [facility] Palliative Care during their admission to [facility]. They currently have no uncontrolled symptoms [...] Palliative Care IDT members involved: Palliative Care Barrel Drum Cutter Discussed the plan of care with the [...] to have bile peritonitis" 11/28/24: transferred to [facility] He ended up developing sacral ulcer and osteomyelitis at [facility]. He then ended up dislodging his tracheostomy, and was brought to [facility] ED for further care. Palliative care [...] much better. Planning to eventually discharge to [facility]. Discussed trying to get palliative care to [...] child(rocky) Living status: SNF Work history: unknown [place] status: unknown Hinduism annette: Non-Religion ROS: See palliative care ROS/ESAS below; All other systems were reviewed and are negative. [place] Symptom Assessment Score [place] Score Pain Score (if non-verbal, add .FLACC [...] 59 y.o. male who who presented to [facility] 01/19 after inadvertent removal of his tracheostomy. He was transferred to [facility] ICU for surgical evaluation. On arrival [...] kg/m . I/O: 01/24 0700 - 01/25 659 In: 748 [I.V.:673] Out: [...] Normal [] Scar/Lesion/Mass Inspection of teeth/lips/gums Dentition: [x][place] Teeth []Dentures Lips/Gums: [x]Intact []Lesion Present Mucosa: [x][place] []Moist []Dry Neck: External Appearance Overall Appearance: [...] 19.2* ABGs: No results for input(s): "PHART", "LGT5DJM", "PO2ART", "QAK8GCB", "SO2ART", "N3TOBDMI" in the last 72 hours. Lactic Acid: [...] Plan: Principal Problem: Complication of tracheostomy (CMS/HCC) ([facility]) Active Problems: Severe malnutrition (CMS/HCC) ([facility]) BRBPR (bright red blood per rectum) [...] peripheral blood smear pending - Diet per SHEET HANGER recs - continue q12 H/H and PT/INR [...] Prophylaxis: SCDs warfarin held Disposition: Transfer to [facility] Cosigned by Darryn Higgins MD at 01/25/2025 [...] and appropriate. If stable can transfer to [facility]. Code Status: Full Code Disposition: Transfer to [facility] Time spent preparing to see the patient, obtaining/reviewing separately obtained history, completing an appropriate medical examination of the patient, ordering medications/tests/procedures, documenting clinical information on the EMR, and/or coordinating care is a subsequent visit: 35 minutes (Level II). Darryn Higgins MD Pulmonary and Critical Care Medicine Attending Pager #[phone] Images from the original note were not included. [facility] - Infectious Diseases Advanced Practice [...] 12/11- sputum cx- MSSA, resp ila Previous ([facility]) 11/28- L pleural fluid- negative 11/16- [...] be of moderate complexity. Mikala MORAN PA-C [facility] Infectious Disease [facility] Progress Note Mr. Jun Snyder is [...] 7 days Lab Units 01/24/25 1217 01/23/25 04301/22/25 0419 SODIUM mmol/L 138 < > 132* [...] status and labs. Please message me through goBramble chat with any questions or concerns. Wellington Nicole MD 01/24/2025 3:17 PM [facility] [address] [place] [address], [address] [place] [address] Office: [phone] Nutrition Assessment Type and Reason for Visit: [...] pt was receiving and tolerating while at [facility]. Noted SHEET HANGER is following- trach remains out and pt stable without it. SHEET HANGER most recently recommended MBSS completion- will follow and monitor SHEET HANGER recs and need for adjustment in EN [...] the ICU after he initially presented to [facility] ED on 01/19/25 due to inadvertent removal of his tracheostomy, pt was transferred to [facility] ICU for surgical evaluation, on arrival [...] and also left toes 1-4 arterial ulcers, SHEET HANGER remains following- yesterday noted recs to continue [...] able to be re-initiated as well as SHEET HANGER recs for possible diet advancement s/p MBSS. [...] bedscale, 10/31: 200#, 11/28: 161#, 01/18: 142#) [place] Body Weight (lbs) (Calculated): 166 lbs [place] Body Weight (Kg) (Calculated): 75 kg % [place] Body Weight (Calculated): 78.2 % BMI (kg/m2) [...] determine Dana El [address] Contact: available via goBramble chat or *[phone] [facility] Anticoagulation Management Service ([facility]ILA[facility]) Inpatient Warfarin Consult HPI: Jun Snyder is a 59 y.o. male admitted on 01/19/2025 for Complication of tracheostomy ([facility]) ([facility]) [J95.00] Past Medical History: Diagnosis Date Acute renal failure (ARF) ([facility]) 10/19/2019 Anemia 12/30/2021 Calcification of abdominal aorta ([facility]) 10/08/202309/[address] abd Diverticulosis 10/08/2023 ESRD on hemodialysis ([facility]) ([facility]) 10/26/2019 Hemodialysis patient ([facility]) ([facility]) HTN (hypertension) 12/01/2022 Hypertension IgA nephropathy IgA nephropathy determined by biopsy of kidney 10/26/2019 Missed vaccination due to patient refusal 10/08/2023 Has a number of non-scientific based beliefs which interfere with his understanding and acceptance of the medical benefit of vaccination. Nonrheumatic aortic valve stenosis 10/08/2023 Paroxysmal A-fib ([facility]) ([facility]) 08/18/2023 Tobacco abuse 10/08/2023 Patient is [...] dose accordingly 3. Will facilitate f/u at [facility] upon discharge Fatuma Odonnell RPh, PharmD [facility]JA is available daily [phone] via [employer] Chat. If no response on [employer] Chat then please page [phone]. ICU Progress Note Name: Jun Snyder : 1965(59 y.o.) Date: 01/24/25 Team: MICU Attending: Dr. Higgins Subjective: Hospital Summary: Mr Snyder is a 59 year old male who presented to [facility] 01/19 after inadvertent removal of his tracheostomy. He was transferred to [facility] ICU for surgical evaluation. On arrival [...] Normal [] Scar/Lesion/Mass Inspection of teeth/lips/gums Dentition: [][place] Teeth []Dentures Lips/Gums: []Intact []Lesion Present Mucosa: [x][place] []Moist [x]Dry Neck: External Appearance Overall Appearance: [...] within last 24 hours- BMP: Recent Labs 01/22/2541801/23/25 0430 01/24/25 0429 NA 132* 140 139 [...] 19.4* ABGs: No results for input(s): "PHART", "ZNX8SYH", "PO2ART", "KSN4XQK", "SO2ART", "Q7BFJMPF" in the last 72 hours. Lactic Acid: [...] clean toes w NS, apply betadine, leave GAS DISPATCHER - PVRs for circulation check - rec [...] post scope if stable can transfer to [facility] tomorrow Code Status: Full Code Disposition: Remain in ICU Time spent preparing to see the patient, obtaining/reviewing separately obtained history, completing an appropriate medical examination of the patient, ordering medications/tests/procedures, documenting clinical information on the EMR, and/or coordinating care is a subsequent visit: 35 minutes (Level II). Darryn Higgins MD Pulmonary and Critical Care Medicine Attending Pager #[phone] [facility] Progress Note Mr. Jnu Snyder is a 59-year-old male with a [...] status and labs. Please message me through goBramble chat with any questions or concerns. Wellington Nicole MD 01/23/2025 5:03 PM [facility] [address] [place] [address], [address] [place] [address] Office: [phone] Images from the original note were not included. Speech-Language Pathology SPEECH LANGUAGE PATHOLOGY [facility] Dysphagia Treatment Note Patient Name: Jun Snyder Evaluation Date: 01/23/2025 Date of : 1965 Admission Date: 01/19/2025 2:13 AM Age: 59 y.o. [facility] A Subjective Patient alert and cooperative. Seen [...] Start: 01/19/25 Expected End: 02/02/25 Therapy Time SHEET HANGER Individual Minutes Time In: 1315 Time Out: 1330 Minutes: 15 FRANKLIN Singh Images from the original note were not included. [facility] - Infectious Diseases Advanced Practice [...] 12/11- sputum cx- MSSA, resp ila Previous ([facility]) 11/28- L pleural fluid- negative 11/16- [...] be of moderate complexity. Mikala MORAN PA-C [facility] Infectious Disease Images from the original note [...] (CMS/HCC) (HCC) Acute respiratory failure with hypoxia ([facility]) [J96.01] Tracheostomy care ([facility]) [Z43.0] 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[facility]) nursing home (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 Complication of tracheostomy (CMS/HCC) ([facility]) BRBPR (bright red blood per rectum) I have personally performed a face to face diagnostic evaluation on this patient. I have reviewed and agree with the care plan as documented above by my RIPSAW GRADER/PA-Walter. I personally discussed the review of systems [...] []SW/TCC []Other Total Care Time (combined between RIPSAW GRADER/PA-C and myself) throughout the day today was >= 35 minutes (including chart/data review/analysis, care coordination, and [id number] encounter), and was spent discussing/counseling the patient/family regarding the care plan for this patient. I examined the patient independently. I reviewed relevant data myself and may have also done so in the context of team rounds. A full chart review was performed. Ivett Buckley MD Division of Trauma Department of Surgery [facility] Images from the original note were not [...] sodium chloride 0.9 % 100 mL IVPB (Add-Lee), 3,000 mg, IntraVENous, q12h, Steve Lassiter MD, [...] 20 mEq, 20 mEq, IntraVENous, Once, Nils Boyle, prochlorperazine (Compazine) injection 5 mg, 5 mg, IntraVENous, q6h PRN, Sangeeta Reyes DO sodium chloride 0.9 % infusion, 250 mL/hr, IntraVENous, PRN, Nils Boyle, OBJECTIVE VITALS: BP 127/71 Pulse 92 Temp [...] reviewed with the patient. CBC: Recent Labs 01/22/2541801/22/25 1539 01/23/25 0430 [...] 59 year old male who presented to [facility] 01/19 after inadvertent removal of his tracheostomy. He was transferred to [facility] ICU for surgical evaluation. On arrival [...] Objective: Last Vitals: BP MAP 127/71 (01/23/25 06) 87 (01/23/25599) Arterial BP MAP Temp 36.1 C (97 F) (01/23/25 0400) Pulse 89 (01/23/25599) Resp 14 (01/23/25599) SpO2 97 % (01/23/25599) Weight 58.9 kg (129 lb 13.6 oz) (01/19/25 0657) BMI Body mass index is 18.63 kg/m . I/O: 01/22 0700 - 01/23 0659 In: 1491 [I.V.:758] Out: 2094 Ventilator: Oxygen [...] Normal [] Scar/Lesion/Mass Inspection of teeth/lips/gums Dentition: [][place] Teeth []Dentures Lips/Gums: []Intact []Lesion Present Mucosa: [][place] []Moist [][place]ry [place]: External Appearance Overall Appearance: [...] within last 24 hours- BMP: Recent Labs 01/21/25 0243 01/22/25 0419 01/23/25 [...] 18.5* ABGs: No results for input(s): "PHART", "LGC8QJY", "PO2ART", "OJV5EIJ", "SO2ART", "O4RWPLHB" in the last 72 hours. Lactic Acid: [...] and Plan: Principal Problem: Complication of tracheostomy ([facility]) ([facility]) Active Problems: Severe malnutrition (CMS/HCC) ([facility]) GI Bleed, worsened by Warfarin Non-bleeding [...] setting of GI bleed Disposition: Transfer to [facility] Cosigned by Darryn Higgins MD at 01/23/2025 [...] Pulmonary and Critical Care Medicine Attending Pager #[phone] [facility] Respiratory Care Department Progress Note As [...] Respiratory in the care of this patient, [facility] Progress Note Mr. Jun Snyder is [...] from last 7 days Lab Units 01/22/25418 SODIUM mmol/L 132* POTASSIUM mmol/L 4.4 CHLORIDE [...] concerns. Wellington Nicole MD 01/22/2025 3:30 PM [facility] [address] [place] [address], [address] [place] [address] Office: [phone] Images from the original note were not included. [facility] - Infectious Diseases Advanced Practice [...] 113 22 98 % 01/22/25 1031 (!) / -- -- 106 (!) 27 99 % [...] 12/11- sputum cx- MSSA, resp ila Previous ([facility]) 11/28- L pleural fluid- negative 11/16- [...] wound debrided to bone on 01/02 at [facility] (Cx with E faecalis and Clostridium). Sacral [...] be of moderate complexity. Mikala MORAN PA-C [facility] Infectious Disease Speech-Language Pathology Spoke with the RN. Patient remains decanulated and doing well on Room Air. Patient is currently NPO for GI. Will defer dysphagia plan of care until patient is cleared to resume TF or a PO diet. Christina Limon MS, CCC/SHEET HANGER Images from the original note were not [...] sodium chloride 0.9 % 100 mL IVPB (Add-Lee), 3,000 mg, IntraVENous, q12h, Steve Lassiter MD, [...] mg, 0.4 mg, IntraVENous, q5 min PRN, Stvee Lassiter MD oxyCODONE (Roxicodone) immediate release tablet 2.5 mg, 2.5 mg, Oral, q6h PRN, 2.5 mg at 01/20/25 2206 OR oxyCODONE (Roxicodone) immediate release tablet 5 mg, 5 mg, Oral, q4h PRN, Steve Lassiter MD, 5 mg at 01/21/25 1488 prochlorperazine (Compazine) injection 5 mg, 5 mg, [...] 10/12/24, Coumadin, last dose suspected 01/18/25 at [facility] Stage V sacral wound Necrotic left toes Supratherapeutic INR Acute Right occipital ICH- 10/22/24 ESRD on HD A. Fib- Coumadin, last dose 4/24/25 - Hgb stable - Patient with BRBPR [...] mmol/L 94* 96* 98 CO2 mmol/L 25 22 BUN mg/dL 53* 46* 91* CREATININE mg/dL 4.18* 2.99* 4.31* GLUCOSE mg/dL 70* 60* 68* CALCIUM mg/dL 9.8 9.9 9.2 Results from last 7 days Lab Units 01/22/25418 ALK PHOS U/L 274* BILIRUBIN TOTAL mg/dL 0.9 BILIRUBIN DIRECT mg/dL 0.7* PROTEIN TOTAL g/dL 7.6 ALT U/L 44* AST U/L 51* No results found for: "LIPASE" Results from last 7 days Lab Units 01/22/2541801/21/253 01/20/25 0514 MAGNESIUM mg/dL 2.6 2.5 2.8* Results from last 7 days Lab Units 01/21/25234701/21/25 1452 01/19/25 0652 INR 8.1* 7.9* 2.7* [...] Active Problem List Diagnosis Anemia Paroxysmal A-fib ([facility]) ([facility]) HTN (hypertension) ESRD on hemodialysis ([facility]) ([facility]) IgA nephropathy determined by biopsy of kidney Diverticulosis Nonrheumatic aortic valve stenosis Calcification of abdominal aorta ([facility]) Missed vaccination due to patient refusal Tobacco abuse Alcohol use disorder in remission Atrial flutter, unspecified type ([facility]) RSV (acute bronchiolitis due to respiratory syncytial virus) Aortic stenosis Upper GI bleed S/P AVR Acute hypoxic respiratory failure ([facility]) Acute encephalopathy Pneumoperitoneum Gastric ulceration Severe malnutrition ([facility]) ([facility]) Pleural effusion Peritonitis due to fungus ([facility]) History of abdominal surgery Leg DVT (deep venous thromboembolism), acute, left ([facility]) 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, 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 of skin ([facility]) Tracheostomy dependence ([facility]) Leukocytosis Decubitus ulcer of sacral region, unstageable ([facility]) Pneumonia of both lungs due to methicillin susceptible Staphylococcus aureus (MSSA) ([facility]) Sacral osteomyelitis (CMS/HCC) (HCC) Acute respiratory failure with hypoxia ([facility]) [J96.01] Tracheostomy care ([facility]) [Z43.0] 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[facility]) nursing home (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 Complication of tracheostomy (CMS/HCC) ([facility]) I personally supervised the resident in [...] of Trauma Department of Surgery [facility] ICU Progress Note Name: Jun Snyder : 1965(59 y.o.) Date: 01/22/25 Team: MICU Attending: Dr. Higgins Subjective: Hospital Summary: Mr Snyder is a 59 year old male who presented to [facility] 01/19 after inadvertent removal of his tracheostomy. He was transferred to [facility] ICU for surgical evaluation. On arrival [...] Normal [] Scar/Lesion/Mass Inspection of teeth/lips/gums Dentition: [][place] Teeth []Dentures Lips/Gums: []Intact []Lesion Present Mucosa: [x][place] []Moist [x][place]: External Appearance Overall Appearance: [...] within last 24 hours- BMP: Recent Labs 01/20/2551301/21/2524201/22/25418 NA 135* 135* 132* K 4.8 4.3 4.4 CL 98 96* 94* CO2 BUN 91* 46* 53* CREATININE 4.31* 2.99* 4.18* CALCIUM 9.2 9.9 9.8 MG 2.8* 2.5 2.6 PHOS 6.1* 5.3* 6.8* LFTs: Recent Labs 01/22/25418 AST 51* ALT 44* PROT 7.6 ALBUMIN 2.2* BILITOT 0.9 ALKPHOS 274* Glucose: Recent Labs 01/20/2551301/21/2524201/21/25 02401/21/25 0600 01/21/25 0634 01/21/25 0654 01/21/25 0736 [...] 0419 WBC 10.1 9.2 -- -- 10.6 HGB 8.3* 8.0* 7.1* 7.7* 8.0* HCT 27.3* 25.3* 22.4* 24.5* 25.1* PLT 365 353 -- -- 330 MCV 88.9 87.5 -- -- 86.9 RDW 18.6* 18.6* -- -- 18.6* ABGs: No results for input(s): "PHART", "OOF1KDL", "PO2ART", "FSP4REW", "SO2ART", "T4MXOWMY" in the last 72 hours. Lactic Acid: [...] Pulmonary and Critical Care Medicine Attending Pager #[phone] [facility] Progress Note SUBJECTIVE: Jun Snyder [...] sodium chloride 0.9 % 100 mL IVPB (Add-Lee), 3,000 mg, IntraVENous, q12h, Steve Lassiter MD, [...] mL injection, 40 mg, IntraVENous, BID, Chantell Hill DO Phenylephrine HCl (Pressors) 1 [...] Problem List Diagnosis Date Noted Severe malnutrition ([facility]) ([facility]) 01/19/2025 Complication of tracheostomy ([facility]) ([facility]) 01/19/2025 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 01/12/2025 Acute respiratory failure with hypoxia ([facility]) [J96.01] 01/08/2025 Tracheostomy care ([facility]) [Z43.0] 01/08/2025 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[facility]) 01/08/2025 Sacral osteomyelitis ([facility]) ([facility]) 01/03/2025 Pneumonia of both lungs due to methicillin susceptible Staphylococcus aureus (MSSA) ([facility]) 01/01/2025 Leukocytosis 12/30/2024 Decubitus ulcer of sacral region, unstageable ([facility]) 12/30/2024 Peritonitis due to fungus ([facility]) 11/30/2024 History of abdominal surgery 11/30/2024 Leg DVT (deep venous thromboembolism), acute, left ([facility]) 11/30/2024 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, 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 of skin ([facility]) 11/30/2024 Tracheostomy dependence ([facility]) 11/30/2024 Pleural effusion 11/28/2024 Gastric ulceration 2024 Atrial flutter, unspecified type ([facility]) 10/03/2024 RSV (acute bronchiolitis due to respiratory syncytial virus) 10/03/2024 Diverticulosis 10/08/2023 Nonrheumatic aortic valve stenosis 10/08/2023 Calcification of abdominal aorta ([facility]) 10/08/2023 Missed vaccination due to patient refusal 10/08/2023 Tobacco abuse 10/08/2023 Alcohol use disorder in remission 10/08/2023 Paroxysmal A-fib ([facility]) ([facility]) 08/18/2023 HTN (hypertension) 12/01/2022 ESRD on hemodialysis ([facility]) ([facility]) 10/26/2019 IgA nephropathy determined by biopsy of kidney 10/26/2019 Aortic stenosis 10/03/2024 Upper GI bleed 10/03/2024 S/P AVR 10/03/2024 Acute hypoxic respiratory failure ([facility]) 10/03/2024 Acute encephalopathy 10/03/2024 Pneumoperitoneum 10/03/2024 Anemia 12/30/2021 ASSESSMENT/PLAN: ESRD. HD MWF schedule Anemia. PRBC if Hb less than 7 GI bleed. Gastroenterology following Cindy Patel MD 01/21/2025 4:54 PM Family Communication Number Called: [phone] Name of Designated Family Scaffold Setter: Omar son I spoke with the individual listed above Family Scaffold Setter Updated on the Following: - Updated Omar [...] sodium chloride 0.9 % 100 mL IVPB (Add-Lee), 3,000 mg, IntraVENous, q12h, Steve Lassiter MD, [...] mg, Oral, q6h PRN, 2.5 mg at 04/26/25 2206 OR oxyCODONE (Roxicodone) immediate release tablet [...] 2 mg, 2 mg, Oral, Daily, Steve Lasister MD OBJECTIVE VITALS: BP 106/55 Pulse 87 [...] 10/12/24, Coumadin, last dose suspected 01/18/25 at [facility] Acute Right occipital ICH- 10/22/24 ESRD [...] proceed with planned procedure. Parth VASQUEZ Gastroenterology [facility] Progress Note SUBJECTIVE: Jun Gurrolaihan is a 59 y.o. 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 01/12/2025 Acute respiratory failure with hypoxia ([facility]) [J96.01] 01/08/2025 Tracheostomy care ([facility]) [Z43.0] 01/08/2025 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[facility]) 01/08/2025 Sacral osteomyelitis ([facility]) ([facility]) 01/03/2025 Pneumonia of both lungs due to methicillin susceptible Staphylococcus aureus (MSSA) ([facility]) 01/01/2025 Leukocytosis 12/30/2024 Decubitus ulcer of sacral region, unstageable ([facility]) 12/30/2024 Peritonitis due to fungus ([facility]) 11/30/2024 History of abdominal surgery 11/30/2024 Leg DVT (deep venous thromboembolism), acute, left ([facility]) 11/30/2024 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, 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 of skin ([facility]) 11/30/2024 Tracheostomy dependence ([facility]) 11/30/2024 Pleural effusion 11/28/2024 Gastric ulceration 2024 Atrial flutter, unspecified type ([facility]) 10/03/2024 RSV (acute bronchiolitis due to respiratory syncytial virus) 10/03/2024 Diverticulosis 10/08/2023 Nonrheumatic aortic valve stenosis 10/08/2023 Calcification of abdominal aorta ([facility]) 10/08/2023 Missed vaccination due to patient refusal 10/08/2023 Tobacco abuse 10/08/2023 Alcohol use disorder in remission 10/08/2023 Paroxysmal A-fib ([facility]) ([facility]) 08/18/2023 HTN (hypertension) 12/01/2022 ESRD on hemodialysis ([facility]) ([facility]) 10/26/2019 IgA nephropathy determined by biopsy of kidney 10/26/2019 Aortic stenosis 10/03/2024 Upper GI bleed 10/03/2024 S/P AVR 10/03/2024 Acute hypoxic respiratory failure ([facility]) 10/03/2024 Acute encephalopathy 10/03/2024 Pneumoperitoneum 10/03/2024 Anemia 12/30/2021 ASSESSMENT/PLAN: ESRD. HD MWF schedule. HD today. See orders Anemia. PRBC if Hb less than 7 Later in the day dialysis had to be discontinued a little early due to GI bleed and other events. Will reassess tomorrow Cindy Patel MD 01/20/2025 5:52 PM Images from the original note were not included. OCCUPATIONAL THERAPY [facility] Initial Evaluation Name/MRN: Jair Snyder ([id number]) Evaluation Date: 01/20/2025 Date of : 1965 Admission Date: 01/19/2025 2:13 AM Age: 59 y.o. Room/Bed: [facility] Discharge Recommendation: Longterm Facility Other: DME [...] planned discharge. Admitting Diagnosis: Complication of tracheostomy ([facility]) ([facility]) Performance Deficits /Impairments: Decreased Functional Mobility, [...] History: Diagnosis Date Acute renal failure (ARF) ([facility]) 10/19/2019 Anemia 12/30/2021 Calcification of abdominal aorta ([facility]) 10/08/202309/[address] abd Diverticulosis 10/08/2023 ESRD on hemodialysis ([facility]) ([facility]) 10/26/2019 Hemod[place] ([facility]) HTN (hypertension) 12/01/2022 Hypertension IgA nephropathy IgA nephropathy determined by biopsy of kidney 10/26/2019 Missed vaccination due to patient refusal 10/08/2023 Has a number of non-scientific based beliefs which interfere with his understanding and acceptance of the medical benefit of vaccination. Nonrheumatic aortic valve stenosis 10/08/2023 Paroxysmal A-fib ([facility]) ([facility]) 08/18/2023 Tobacco abuse 10/08/2023 Past Surgical History: Past Surgical History: Procedure Laterality Date APPENDECTOMY CARDIAC CATHETERIZATION N/A 10/09/2024 Performed by Bob Watson MD at [facility] Cardiac Cath/EP Lab CARDIAC CATHETERIZATION Bilateral 11/01/2024 Performed by Bob Watson MD at [facility] Cardiac Cath/EP Lab CARDIAC CATHETERIZATION N/A 11/01/2024 Performed by Bob Watson MD at [facility] Cardiac Cath/EP Lab FISTULAGRAM (HISTORICAL) Left 09/15/2021 LEFT UPPER ARM HX AV FISTULA CREATION IR EMBOLIZATION 10/14/2024 IR EMBOLIZATION 10/14/2024 [facility] SPECIAL PROCEDURES IR FISTULAGRAM 08/07/2022 IR FISTULAGRAM 08/07/2022 [facility] IR IMAGING TONSILLECTOMY (HISTORICAL) Admission Diagnosis: Patient Active Problem List Diagnosis Date Noted Severe malnutrition ([facility]) ([facility]) 01/19/2025 Complication of tracheostomy ([facility]) ([facility]) 01/19/2025 nursing home (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 01/12/2025 Acute respiratory failure with hypoxia ([facility]) [J96.01] 01/08/2025 Tracheostomy care ([facility]) [Z43.0] 01/08/2025 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[facility]) 01/08/2025 Sacral osteomyelitis ([facility]/HCC) ([facility]) 01/03/2025 Pneumonia of both lungs due to methicillin susceptible Staphylococcus aureus (MSSA) ([facility]) 01/01/2025 Leukocytosis 12/30/2024 Decubitus ulcer of sacral region, unstageable ([facility]) 12/30/2024 Peritonitis due to fungus ([facility]) 11/30/2024 History of abdominal surgery 11/30/2024 Leg DVT (deep venous thromboembolism), acute, left ([facility]) 11/30/2024 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, 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 of skin ([facility]) 11/30/2024 Tracheostomy dependence ([facility]) 11/30/2024 Pleural effusion 11/28/2024 Gastric ulceration 2024 Atrial flutter, unspecified type ([facility]) 10/03/2024 RSV (acute bronchiolitis due to respiratory syncytial virus) 10/03/2024 Diverticulosis 10/08/2023 Nonrheumatic aortic valve stenosis 10/08/2023 Calcification of abdominal aorta ([facility]) 10/08/2023 Missed vaccination due to patient refusal 10/08/2023 Tobacco abuse 10/08/2023 Alcohol use disorder in remission 10/08/2023 Paroxysmal A-fib (CMS/HCC) ([facility]) 08/18/2023 HTN (hypertension) 12/01/2022 ESRD on hemodialysis [place] ([facility]) 10/26/2019 IgA nephropathy determined by biopsy of kidney 10/26/2019 Aortic stenosis 10/03/2024 Upper GI bleed 10/03/2024 S/P AVR 10/03/2024 Acute hypoxic respiratory failure ([facility]) 10/03/2024 Acute encephalopathy 10/03/2024 Pneumoperitoneum 10/03/2024 [...] events, decreased short term memory, and decreased jail memory - Safety judgement: decreased awareness of [...] Poor historian. Per pt he came from [facility]. Pt unable to recall living situation prior to [facility], states "I've been in and out of [...] of Care supervision is transferred to a [facility] Therapy Services Occupational Therapist. Goals and/or treatment plan was established in collaboration with patient/family/other representatives. Hospitalist Progress Note 01/20/2025 Subjective: Admit Date: 01/19/2025 PCP: Leilani Han Room#: W7-353/W7-593 A BRIEF HOSPITAL COURSE: Patient is a 59 yo male with a PMH of Trach and peg, HTN, paroxysmal a-fib, R occipital ICH, Tobacco abuse, ARF - dialysis (TTS; LUE AVF), diverticulosis, IgA nephropathy, severe that presented to [facility] ED from a facility due to trach dislodgement. Per patient, was trying to disconnect his vent to transfer to another room but accidentally pulled out his tracheostomy. This event happened approximately 45 minutes before ED arrival. ED attempted to place tracheostomy tube back but were unsuccessful. Decision was made to transfer patient to [facility] ICU for further airway management and determine if replacement tracheostomy is needed. Was observed at [facility] ICU initially and transferred to [facility] on 01/20. Noted removal of trach. 01/20: [...] History: Diagnosis Date Acute renal failure (ARF) ([facility]) 10/19/2019 Anemia 12/30/2021 Calcification of abdominal aorta ([facility]) 10/08/202309/[address] abd Diverticulosis 10/08/2023 ESRD on hemodialysis ([facility]) ([facility]) 10/26/2019 Hemodialysis patient ([facility]) ([facility]) HTN (hypertension) 12/01/2022 Hypertension IgA nephropathy [...] and limit nighttime disturbances - DVT prophylaxis: [facility] 02-01-2025 Note [facility] 02-01-2025 Hospital course Narrative Discharge Summary Jun Snyder : 1965 ADMIT DATE: 01/19/2025 DISCHARGE DATE: 02/01/2025 PRIMARY CARE PHYSICIAN: Leilani Han VISIT STATUS: Admission CODE STATUS: Full Code DISCHARGE DIAGNOSES: Principal Problem: Complication of tracheostomy (CMS/HCC) ([facility]) Active Problems: Severe malnutrition (CMS/HCC) ([facility]) BRBPR (bright red blood per rectum) HOSPITAL COURSE: Jun Snyder is a 59 y.o. male who who presented to [facility] 01/19 after inadvertent removal of his tracheostomy. He was transferred to [facility] ICU for surgical evaluation. On arrival [...] line on 01/29 Nephrology following, on dialysis SHEET HANGER following PT/OT recommends SNF Patient will be [...] History: Diagnosis Date Acute renal failure (ARF) ([facility]) 10/19/2019 Anemia 12/30/2021 Calcification of abdominal aorta ([facility]) 10/08/202309/[address] abd Diverticulosis 10/08/2023 ESRD [place] hemodialysis [place] ([facility]) 10/26/2019 Hemodialysis patient [place] ([facility]) HTN (hypertension) 12/01/2022 Hypertension IgA nephropathy IgA nephropathy determined by biopsy of kidney 10/26/2019 Missed vaccination due to patient refusal 10/08/2023 Has a number of non-scientific based beliefs which interfere with his understanding and acceptance of the medical benefit of vaccination. Nonrheumatic aortic valve stenosis 10/08/2023 Paroxysmal A-fib ([facility] ([facility]) 08/18/2023 Tobacco abuse 10/08/2023 Adult diet [...] 20 mL/hr, Last Rate: 20 mL/hr (01/30/25 3767) Assessment Data: (CAT1) Reviewed 2 notes from [...] by ID -S/p tunneled central line placement -SHEET HANGER follow, dysphagia diet -PT OT DC recommend SNF SIGNIFICANT DIAGNOSTIC STUDIES: IR cvc tunneled central line placement [[id number]] Collected: 01/30/25 1437 Order Status: Completed Updated: 01/30/25 1439 Narrative: Patient Name: JUN SNYDER : 1965 [...] FL modified barium with video and speech [[id number]] Collected: 01/25/25 1328 Order Status: Completed Updated: [...] 3:12 PM EDT XR chest 1 view [[id number]] Collected: 01/24/25 0158 Order Status: Completed Updated: [...] pelvis angiogram w and/or wo IV contrast [[id number]] Collected: 01/20/25 1849 Order Status: Completed Updated: 01/20/251902 Narrative: [facility] 1965 [id number] Exam Date/Time: 01/20/2025 17:02 Procedure: CT ABDOMEN [...] 7:02 PM EDT XR chest 1 view [[id number]] Collected: 01/19/25614 Order Status: Completed Updated: 01/19/25616 [...] 6:16 AM EDT XR chest 1 view [[id number]] Collected: 01/18/25 1242 Order Status: Completed Updated: [...] days. CONTINUE taking these medications epoetin rowan-epbx 41199 UNIT/ML injection Commonly known as: Retacrit Inject [...] Complexity: follow up within 7-14 calendar days (47907) [] Severe Complexity: follow up within 7 calendar days (27649) FOLLOW UP TESTING, PENDING RESULTS OR REFERRALS AT TRANSITIONAL CARE VISIT: [] Yes [] No PENDING STUDIES: DISPOSITION: Skilled Facility FACILITY/HOME CARE AGENCY NAME: Follow up with [facility] [address] [facility] [id number] Gurdeep Cruz MD [address] [place] [address] [address] [facility] [place] [address] Schedule an appointment as soon as possible [...] 02/01/2025, 10:29 AM documented in this encounter [facility] 01-30-2025 Note Patient receiving ot her care, will attempt smoking cessation counseling at a later date. [facility] 01-30-2025 Note Problem: Pain - Adul t Goal: Verbalizes/displays adequate comfort level or baseline comfort level Outcome: Progressing Problem: Safety - Adult Goal: Free from fall injury Outcome: Progressing [facility] 01-29-2025 Telephone encount er Note Chart reviewed, patient appears to be sensitive to warfarin at this time and I wouldn't be able to guarantee INR remains less than 3, so opted to hold dose today. I canceled order. [facility] Work Phone: 01-29-2025 Miscellaneous Notes Formattin g of this note might be different from the original. Chart reviewed, patient appears to be sensitive to warfarin at this time and I wouldn't be able to guarantee INR remains less than 3, so opted to hold dose today. I canceled order. SWEETIE Singh with [facility] [employer] called to inform [facility] patient is scheduled to have a tunnel cath line tomorrow and Dr. Lira is inquiring if patient should hold his warfarin 0.[address] Lira does not want INR to go above to 3.0 tomorrow. Staffed with Natali Richter, PERI, CACP, she will cancel patient's warfarin dose tomorrow and SAILAAJ will make adjustments as needed tomorrow. documented in this encounter [facility] 01-29-2025 Telephone encount er Note SWEETIE Singh with [facility] [employer] called to inform [facility] patient is scheduled to have a tunnel cath line tomorrow and Dr. Lira is inquiring if patient should hold his warfarin 0.[address] Lira does not want INR to go above to 3.0 tomorrow. Staffed with Natali Richter, PERI, CACP, she will cancel patient's warfarin dose tomorrow and SAILAJA will make adjustments as needed tomorrow. [facility] 01-26-2025 Hospital Discharg e instructions Kristine Donato RN - 01/26/2025 2:43 PM EDT Images from the original note were not included. Continuity of Care Form Patient Name: Jun Snyder : 1965 Admit date: 01/19/2025 Discharge date: 02/01/2025 Code Status Order: Full Code Advance Directives: Y Admitting Physician: Quiana Jeffery DO PCP: Leilani Han Discharging Nurse: Kristine Donato RN Discharging Hospital Unit/Room#: T3-321/T3-321 A Discharging Unit Emergency Contact: Extended Emergency Contact Information Primary Emergency Contact: Omar Snyder Mobile Relation: Child Secondary Emergency Contact: Toma Mcneil Mobile Relation: Partner Past Surgical History: Past Surgical History: Procedure Laterality Date APPENDECTOMY CARDIAC CATHETERIZATION N/A 10/09/2024 Performed by Bob Watson MD at [facility] Cardiac Cath/EP Lab CARDIAC CATHETERIZATION Bilateral 11/01/2024 Performed by Bob Watson MD at [facility] Cardiac Cath/EP Lab CARDIAC CATHETERIZATION N/A 11/01/2024 Performed by Bob Watson MD at [facility] Cardiac Cath/EP Lab COLONOSCOPY N/A 01/24/2025 Performed by Chadd Davis MD at [facility] ENDOSCOPY FISTULAGRAM (HISTORICAL) Left 09/15/2021 LEFT UPPER ARM HX AV FISTULA CREATION IR EMBOLIZATION 10/14/2024 IR EMBOLIZATION 10/14/2024 [facility] SPECIAL PROCEDURES IR FISTULAGRAM 08/07/2022 IR FISTULAGRAM 08/07/2022 [facility] IR IMAGING TONSILLECTOMY (HISTORICAL) Immunization History: Immunization [...] (CMS/HCC) (HCC) Acute respiratory failure with hypoxia ([facility]) [J96.01] Tracheostomy care ([facility]) [Z43.0] 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[facility]) 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 Anemia Aortic [...] Total assistance Toileting Total assistance Feeding Independent Jewelry Making Instructor Independent Med Delivery yes Wound Care Documentation and Therapy: Wound/Incision 11/13/24 Pressure Injury Sacrum (Active) Wound Image 01/19/25 0500 Site Assessment [place];Red 01/26/25 1200 [place]-Wound Assessment Intact 01/26/25 0355 [...] Date: 01/21/25 Discharging to Facility/ Agency Name: [facility] Address: [address] [place] [address] Fax: Dialysis Facility (if applicable) Name: Address: Dialysis Schedule: [facility] Phone: Fax: Insurance Adviser/Barrel Drum Cutter signature: ICIAN SECTION Name: Jun Snyder Prognosis: fair Condition at Discharge: stable Rehab Potential (if transferring to Rehab): fair Recommended Labs or Other Treatments After Discharge: cbc,cmp, PT/INR for warfarin, C/W Ampicillin-Sulbactam till 02/13, F/U with ID The individual is being admitted to a nursing facility directly from an [facility] or a unit of a [facility] that is not operated by or licensed by [facility] under section 5119.14 or 5160-3-15.1 5 The individual requires the level of services provided by a nursing facility for the condition for which he or she was treated in the hospital and, Physician Certification: I certify the above information and transfer of Jun Snyder is necessary for the continuing treatment of the diagnosis listed and that he requires shelter facility for less than 30 days. Update Admission H&P: No change in H&P PHYSICIAN SIGNATURE: documented in this encounter [facility] 01-24-2025 Procedure note Images from the [...] Safety: The patient was placed on a cardiac nurse practitioner and vital signs, pulse oximetry, and level [...] of the procedure. documented in this encounter [facility] 01-23-2025 Consult note Associated Order (s): INPATIENT CONSULT TO WOUND CARE PROVIDERS Images from the original note were not included. [facility] Wound Care Re-CONSULT Note Jun Snyder AGE: [...] diverticulosis, IgA nephropathy, severe that presented to [facility] ED from a facility due to trach [...] CT abd Diverticulosis 10/08/2023 ESRD [place] hemodialysis [place] ([facility]) 10/26/2019 Hemodialysis patient [place] ([facility]) HTN (hypertension) 12/01/2022 Hypertension IgA nephropathy IgA nephropathy determined by biopsy of kidney 10/26/2019 Missed vaccination due to patient refusal 10/08/2023 Has a number of non-scientific based beliefs which interfere with his understanding and acceptance of the medical benefit of vaccination. Nonrheumatic aortic valve stenosis 10/08/2023 Paroxysmal A-fib ([facility] ([facility]) 08/18/2023 Tobacco abuse 10/08/2023 PAST SURGICAL HISTORY Past Surgical History: Procedure Laterality Date APPENDECTOMY CARDIAC CATHETERIZATION N/A 10/09/2024 Performed by Bob Watson MD at [facility] Cardiac Cath/EP Lab CARDIAC CATHETERIZATION Bilateral 11/01/2024 Performed by Bob Watson MD at [facility] Cardiac Cath/EP Lab CARDIAC CATHETERIZATION N/A 11/01/2024 Performed by Bob Watson MD at [facility] Cardiac Cath/EP Lab FISTULAGRAM (HISTORICAL) Left 09/15/2021 LEFT UPPER ARM HX AV FISTULA CREATION IR EMBOLIZATION 10/14/2024 IR EMBOLIZATION 10/14/2024 [facility] SPECIAL PROCEDURES IR FISTULAGRAM 08/07/2022 IR FISTULAGRAM 08/07/2022 [facility] IR IMAGING TONSILLECTOMY (HISTORICAL) FAMILY HISTORY Family [...] Medication Sig Dispense Refill epoetin rowan-epbx (Retacrit) 91610 UNIT/ML injection Inject 0.79 mL (7,900 Units) [...] to follow Recommend to follow up at [facility] Outpatient wound care center after [...] Gill DO at 01/29/2025 4:37 PM EDT [facility] Anticoagulation Management Service (SAILAJA) Inpatient Warfarin Consult HPI: Jun Snyder is a 59 y.o. male admitted on 01/19/2025 for Complication of tracheostomy ([facility]) ([facility]) [J95.00] Past Medical History: Diagnosis Date Acute renal failure (ARF) ([facility]) 10/19/2019 Anemia 12/30/2021 Calcification of abdominal aorta ([facility]) 10/08/202309/[address] abd Diverticulosis 10/08/2023 ESRD on hemodialysis ([facility]) ([facility]) 10/26/2019 Hemodialysis patient [place] ([facility]) HTN (hypertension) 12/01/2022 Hypertension IgA nephropathy [...] and plan for colonoscopy tomorrow, please notify [facility] when able to resume anticoagulation. 2. Monitor for s/s of bleeding and drug interactions. Will adjust dose accordingly 3. Will facilitate f/u at [facility] upon discharge Fatuma Odonnell RPh, PharmD [facility] is available daily [phone] via [employer]. If no response on [employer] Chat then please page [phone]. Images from the original note were not [...] AV replacement Supratherapeutic INR - [facility] Labor valve in 09/2024 - coumadin held due [...] Palliative Care IDT members involved: Palliative Care Barrel Drum Cutter Discussed the plan of care with the [...] to have bile peritonitis" 11/28/24: transferred to [facility] He ended up developing sacral ulcer and osteomyelitis at [facility]. He then ended up dislodging his tracheostomy, and was brought to [facility] ED for further care. Palliative care [...] the last several months, with being in [facility] and now back into the hospital. I [...] and the size prior to going to [facility]. Discussed current treatment of this, including antibiotics. [...] child(rocky) Living status: SNF Work history: unknown [place] status: unknown Hinduism annette: Non-Religion ROS: See palliative care ROS/ESAS below; All other systems were reviewed and are negative. [place] Symptom Assessment Score [place] Score Pain Score (if non-verbal, add .FLACC [...] History: Diagnosis Date Acute renal failure (ARF) ([facility]) 10/19/2019 Anemia 12/30/2021 Calcification of abdominal aorta ([facility]) 10/08/202309/[address] abd Diverticulosis 10/08/2023 ESRD [place] hemodialysis [place] ([facility]) 10/26/2019 Hemodialysis patient [place] ([facility]) HTN (hypertension) 12/01/2022 Hypertension IgA nephropathy IgA nephropathy determined by biopsy of kidney 10/26/2019 Missed vaccination due to patient refusal 10/08/2023 Has a number of non-scientific based beliefs which interfere with his understanding and acceptance of the medical benefit of vaccination. Nonrheumatic aortic valve stenosis 10/08/2023 Paroxysmal A-fib ([facility] ([facility]) 08/18/2023 Tobacco abuse 10/08/2023 Past Surgical History: Procedure Laterality Date APPENDECTOMY CARDIAC CATHETERIZATION N/A 10/09/2024 Performed by Bob Watson MD at [facility] Cardiac Cath/EP Lab CARDIAC CATHETERIZATION Bilateral 11/01/2024 Performed by Bob Watson MD at [facility] Cardiac Cath/EP Lab CARDIAC CATHETERIZATION N/A 11/01/2024 Performed by Bob Watson MD at [facility] Cardiac Cath/EP Lab FISTULAGRAM (HISTORICAL) Left 09/15/2021 LEFT UPPER ARM HX AV FISTULA CREATION IR EMBOLIZATION 10/14/2024 IR EMBOLIZATION 10/14/2024 [facility] SPECIAL PROCEDURES IR FISTULAGRAM 08/07/2022 IR FISTULAGRAM 08/07/2022 [facility] IR IMAGING TONSILLECTOMY (HISTORICAL) Family History Problem [...] Transition Note Initiated: yes Tex Cotto MD [facility] Anticoagulation Management Service (SAILAJA) Inpatient Warfarin Consult HPI: Jun Snyder is a 59 y.o. male admitted on 01/19/2025 for Complication of tracheostomy ([facility]) ([facility]) [J95.00] Past Medical History: Diagnosis Date Acute renal failure (ARF) ([facility]) 10/19/2019 Anemia 12/30/2021 Calcification of abdominal aorta ([facility]) 10/08/202309/[address] abd Diverticulosis 10/08/2023 ESRD on hemodialysis ([facility]) ([facility]) 10/26/2019 Hemodialysis patient ([facility]) ([facility]) HTN (hypertension) 12/01/2022 Hypertension IgA nephropathy IgA nephropathy determined by biopsy of kidney 10/26/2019 Missed vaccination due to patient refusal 10/08/2023 Has a number of non-scientific based beliefs which interfere with his understanding and acceptance of the medical benefit of vaccination. Nonrheumatic aortic valve stenosis 10/08/2023 Paroxysmal A-fib (CMS/HCC) ([facility]) 08/18/2023 Tobacco abuse 10/08/2023 Patient is [...] possible GIB and elevated INR, please notify [facility] when able to resume anticoagulation. 2. Monitor for s/s of bleeding and drug interactions. Will adjust dose accordingly 3. Will facilitate f/u at [facility] upon discharge Fatuma Odonnell RPh, PharmD [facility] is available daily [phone] via [employer]. If no response on [employer] Chat then please page [phone]. [facility] Anticoagulation Management Service (SAILAJA) Inpatient Warfarin Consult HPI: Jun Snyder is a 59 y.o. male admitted on 01/19/2025 for Complication of tracheostomy (CMS/HCC) ([facility] [facility]) [J95.00] Past Medical History: Diagnosis Date Acute renal failure (ARF) ([facility]) 10/19/2019 Anemia 12/30/2021 Calcification of abdominal aorta ([facility]) 10/08/202309/[address] abd Diverticulosis 10/08/2023 ESRD on hemodialysis [place] ([facility]) 10/26/2019 Hemodialysis patient ([facility] ([facility]) HTN (hypertension) 12/01/2022 Hypertension IgA nephropathy IgA nephropathy determined by biopsy of kidney 10/26/2019 Missed vaccination due to patient refusal 10/08/2023 Has a number of non-scientific based beliefs which interfere with his understanding and acceptance of the medical benefit of vaccination. Nonrheumatic aortic valve stenosis 10/08/2023 Paroxysmal A-fib ([facility] ([facility]) 08/18/2023 Tobacco abuse 10/08/2023 Patient is [...] admission. Holding warfarin for GIB, please notify [facility] when able to resume anticoagulation. 2. Monitor for s/s of bleeding and drug interactions. Will adjust dose accordingly 3. Will facilitate f/u at [facility] upon discharge Darryn Wagner RPh, PharmD SAILAJA is available daily [phone] via [employer] Chat. If no response on [employer] then please page [phone]. Associated Order(s): IP CONSULT TO GENERAL SURGERY [...] History: Diagnosis Date Acute renal failure (ARF) ([facility]) 10/19/2019 Anemia 12/30/2021 Calcification of abdominal aorta ([facility]) 10/08/202309/[address] abd Diverticulosis 10/08/2023 ESRD on hemodialysis ([facility] ([facility]) 10/26/2019 Hemodialysis patient [place] ([facility]) HTN (hypertension) 12/01/2022 Hypertension IgA nephropathy IgA nephropathy determined by biopsy of kidney 10/26/2019 Missed vaccination due to patient refusal 10/08/2023 Has a number of non-scientific based beliefs which interfere with his understanding and acceptance of the medical benefit of vaccination. Nonrheumatic aortic valve stenosis 10/08/2023 Paroxysmal A-fib ([facility]) ([facility]) 08/18/2023 Tobacco abuse 10/08/2023 Past Surgical History: Procedure Laterality Date APPENDECTOMY CARDIAC CATHETERIZATION N/A 10/09/2024 Performed by Bob Watson MD at [facility] Cardiac Cath/EP Lab CARDIAC CATHETERIZATION Bilateral 11/01/2024 Performed by Bob Watson MD at [facility] Cardiac Cath/EP Lab CARDIAC CATHETERIZATION N/A 11/01/2024 Performed by Bob Watson MD at [facility] Cardiac Cath/EP Lab FISTULAGRAM (HISTORICAL) Left 09/15/2021 LEFT UPPER ARM HX AV FISTULA CREATION IR EMBOLIZATION 10/14/2024 IR EMBOLIZATION 10/14/2024 [facility] SPECIAL PROCEDURES IR FISTULAGRAM 08/07/2022 IR FISTULAGRAM 08/07/2022 [facility] IR IMAGING TONSILLECTOMY (HISTORICAL) Medications Prior to Admission: Current Facility-Administered Medications Medication Dose Route Frequency Provider Last Rate Last Admin acetaminophen (Tylenol) tablet 1,000 mg 1,000 mg Oral q8h PRN Steve Lassiter MD 1,000 mg at 01/19/25 1540 ampicillin-sulbactam (Unasyn) 3,000 mg in sodium chloride 0.9 % 100 mL IVPB (Add-Lee) 3,000 mg IntraVENous q12h Steve Lassiter MD [...] Transportation Needs (01/18/2025) Received from [facility] Transportation Source Has lack of transportation kept you from medical appointments or from getting medications?: No Has lack of transportation kept you from meetings, work, or from getting things needed for daily living?: No Stress: No Stress Concern Present (01/18/2025) Received from [facility] [place] [facility] Occupational [facility] - Occupational Stress Questionnaire Feeling of Stress : Not at all Social Connections: Patient Unable To Answer (12/01/2024) Received from [facility] Social Connection and Isolation Panel [NHANES] Frequency of Communication with Friends and Family: Patient unable to answer Frequency of Social Gatherings with Friends and Family: Patient unable to answer Attends Hinduism Services: Patient unable to answer Active Member of Clubs or Organizations: Patient unable to answer Attends Club or Organization Meetings: Patient unable to answer Marital Status: Patient unable to answer Intimate Partner Violence: Patient Unable To Answer (11/28/2024) Received from [facility] Domestic Abuse Assessment Do you feel safe in your relationships at home?: Unable to assess Physical Abuse: Unable to assess Verbal Abuse: Unable to assess Housing Stability: Patient Unable To Answer (12/01/2024) Received from [facility] Housing Stability Vital Sign Unable to Pay [...] LIPASE IMAGING: POCT glucose meter [facility]formed by: [facility], [address] [place] [address] CLIA ID: [id number] POCT glucose meter Performed by: [facility], [address] [place] [id number] CLIA ID: [id number] POCT glucose meter Performed by: [facility], [address] [place] [address] CLIA ID: [id number] POCT glucose meter Performed by: [facility], [address] [place] [id number] CLIA ID: [id number] POCT glucose meter Performed by: [facility], [address] [place] [id number] CLIA ID: [id number] POCT glucose meter Performed by: [facility], [address] [place] [id number] CLIA ID: [id number] ASSESSMENT AND PLAN: Jun Snyder is a [...] Brenton Goldstein MD General Surgery PGY-1 Pager #[phone] Cosigned by Tex Brush MD at 01/22/2025 6:07 AM EDT Associated attestation - Tex Brush MD - 01/22/2025 6:07 AM EDT ATTENDING ADDENDUM Active Diagnoses/Problems this Admission: Patient Active Problem List Diagnosis Anemia Paroxysmal A-fib ([facility]) ([facility]) HTN (hypertension) ESRD on hemodialysis ([facility]) ([facility]) IgA nephropathy determined by biopsy of kidney Diverticulosis Nonrheumatic aortic valve stenosis Calcification of abdominal aorta ([facility]) Missed vaccination due to patient refusal Tobacco abuse Alcohol use disorder in remission Atrial flutter, unspecified type ([facility]) RSV (acute bronchiolitis due to respiratory syncytial virus) Aortic stenosis Upper GI bleed S/P AVR Acute hypoxic respiratory failure ([facility]) Acute encephalopathy Pneumoperitoneum Gastric ulceration Severe malnutrition ([facility]) ([facility]) Pleural effusion Peritonitis due to fungus ([facility]) History of abdominal surgery Leg DVT (deep venous thromboembolism), acute, left ([facility]) 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, 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 of skin ([facility]) Tracheostomy dependence (HCC) Leukocytosis Decubitus ulcer of sacral region, unstageable (HCC) Pneumonia of both lungs due to methicillin susceptible Staphylococcus aureus (MSSA) (HCC) Sacral osteomyelitis (CMS/HCC) (HCC) Acute respiratory failure with hypoxia (HCC) [J96.01] Tracheostomy care ([facility]) [Z43.0] 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HCC) nursing home (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 Complication of tracheostomy (CMS/HCC) ([facility]) I personally supervised the resident physician [...] of Trauma Department of Surgery [facility] Images from the original note were not [...] IgA nephropathy, severe who was admitted to [facility] 01/19 due to trach dislodgement. Since [...] Normal [] Scar/Lesion/Mass Inspection of teeth/lips/gums Dentition: [][place] Teeth []Dentures Lips/Gums: [x]Intact []Lesion Present Mucosa: [x][place] []Moist [x]Dry Neck: External Appearance Overall Appearance: [...] Plan: Principal Problem: Complication of tracheostomy (CMS/HCC) ([facility]) Active Problems: Severe malnutrition (CMS/HCC) ([facility]) Assessment: Rectal bleeding with concern for [...] transfer GI Prophylaxis: Pantoprazole IV D[facility] BMI Classification: Body mass index is 18.63 kg/m . normal BMI 18.5-24.9 Disposition: Transfer to ICU Critical Care Time: 30 minutes Total critical care time caring for this patient with life threatening, unstable organ failure, including direct patient contact, management of life support systems, review of data including imaging and labs, discussions with other team members and physicians, excluding procedures. Cosigned by uQiana Jeffery DO at 01/21/2025 3:21 PM EDT Associated attestation - Quiana Jeffery DO - 01/21/2025 3:21 PM EDT Attestation signed by Quiana Jeffery DO at 01/21/2025 2:43 PM I have personally performed a [id number] diagnostic evaluation on this patient on date of service 01/21/2025. History, labs, imaging studies, and electronic medical record have been reviewed by me. This note documented by the [x]house parent []ARMIN reflects my history, exam, and medical decision making. I have reviewed and agree with the care plan. Changes were made in the orders as necessary. ROS documentation was reviewed and negative unless otherwise stated in HPI. Additional pertinent interval history, ROS, and physical exam findings: Mr Snyder is a 59 year old male who presented to [facility] 01/19 after inadvertent removal of his tracheostomy. He was transferred to [facility] ICU for surgical evaluation. On arrival [...] maintain >7 -Hold coumadin -Continue protonix bid -DIRECTOR OF REHABILITATION AND WELLNESS per nephrology, will appreciate recs -Consult general [...] Abhishek gastrostomy tube placement, who presented to [facility] on 01/19/25 as a transfer from [facility] Per patient, was trying to disconnect his vent to transfer to another room but accidentally pulled out his tracheostomy. This event happened approximately 45 minutes before ED arrival. ED attempted to place tracheostomy tube back but were unsuccessful. Decision was made to transfer patient to [facility] ICU for further airway management and [...] History: Diagnosis Date Acute renal failure (ARF) ([facility]) 10/19/2019 Anemia 12/30/2021 Calcification of abdominal aorta ([facility]) 10/08/202309/[address] abd Diverticulosis 10/08/2023 ESRD [place] hemodialysis [place] ([facility]) 10/26/2019 Hemodialysis patient [place] ([facility]) HTN (hypertension) 12/01/2022 Hypertension IgA nephropathy IgA nephropathy determined by biopsy of kidney 10/26/2019 Missed vaccination due to patient refusal 10/08/2023 Has a number of non-scientific based beliefs which interfere with his understanding and acceptance of the medical benefit of vaccination. Nonrheumatic aortic valve stenosis 10/08/2023 Paroxysmal A-fib ([facility] ([facility]) 08/18/2023 Tobacco abuse 10/08/2023 Past Surgical History: Procedure Laterality Date APPENDECTOMY CARDIAC CATHETERIZATION N/A 10/09/2024 Performed by Bob Watson MD at [facility] Cardiac Cath/EP Lab CARDIAC CATHETERIZATION Bilateral 11/01/2024 Performed by Bob Watson MD at [facility] Cardiac Cath/EP Lab CARDIAC CATHETERIZATION N/A 11/01/2024 Performed by Bob Watson MD at [facility] Cardiac Cath/EP Lab FISTULAGRAM (HISTORICAL) Left 09/15/2021 LEFT UPPER ARM HX AV FISTULA CREATION IR EMBOLIZATION 10/14/2024 IR EMBOLIZATION 10/14/2024 [facility] SPECIAL PROCEDURES IR FISTULAGRAM 08/07/2022 IR [...] Patient Unable To Answer (12/01/2024) Received from [facility] Overall Financial Resource Strain (CARDIA) Difficulty of Paying Living Expenses: Patient unable to answer Food Insecurity: Patient Unable To Answer (12/01/2024) Received from [facility] Hunger Vital Sign Worried About Running Out of Food in the Last Year: Patient unable to answer Ran Out of Food in the Last Year: Patient unable to answer Transportation Needs: No Transportation Needs (01/18/2025) Received from [facility] Transportation Source Has lack of transportation kept you from medical appointments or from getting medications?: No Has lack of transportation kept you from meetings, work, or from getting things needed for daily living?: No Physical Activity: Not on file Stress: No Stress Concern Present (01/18/2025) Received from [facility] [place] [facility] - Occupational Stress Questionnaire Feeling of Stress : Not at all Social Connections: Patient Unable To Answer (12/01/2024) Received from [facility] Social Connection and Isolation Panel [NHANES] Frequency of Communication with Friends and Family: Patient unable to answer Frequency of Social Gatherings with Friends and Family: Patient unable to answer Attends Hinduism Services: Patient unable to answer Active Member of Clubs or Organizations: Patient unable to answer Attends Club or Organization Meetings: Patient unable to answer Marital Status: Patient unable to answer Intimate Partner Violence: Patient Unable To Answer (11/28/2024) Received from [facility] Domestic Abuse Assessment Do you feel safe in your relationships at home?: Unable to assess Physical Abuse: Unable to assess [facility] Domestic Abuse - Type of Abuse: Not on file [facility] Domestic Abuse - Time Frame: Not on file [facility] Domestic Abuse - Signs and Symptoms: Not on file Verbal Abuse: Unable to assess [facility] Domestic Abuse - Reported To: Not on file Housing Stability: Patient Unable To Answer (12/01/2024) Received from [facility] Housing Stability Vital Sign Unable to Pay for Housing in the Last Year: Patient unable to answer Number of Times Moved in the Last Year: 0 Homeless in the Last Year: Patient unable to answer Allergies Allergen Reactions Lisinopril Swelling and Angioedema Prior to Admission medications Medication Sig Start Date End Date Taking? Authorizing Provider epoetin rowan-epbx (Retacrit) 13939 UNIT/ML injection Inject 0.79 mL (7,900 Units) [...] Normal [] Scar/Lesion/Mass Inspection of teeth/lips/gums Dentition: [][place] Teeth []Dentures Lips/Gums: [x]Intact []Lesion Present Mucosa: [x][place] []Moist [][place]ry [place]ck: External Appearance Overall Appearance: [...] -- ABGs: No results for input(s): "PHART", "ROF4YGY", "PO2ART", "VAQ2TBY", "SO2ART", "G1GAIUCK" in the last 72 hours. Lactic Acid: [...] (CMS/HCC) (HCC) Active Problems: Severe malnutrition (CMS/HCC) ([facility]) Assessment: Passage of Bright red blood [...] normal BMI 18.5-24.9 Disposition: Remain on the [facility] Critical Care Time: Total critical care time [...] PM EDT I have personally performed a xevr-xp-mvez diagnostic evaluation on this patient on date of service 01/20/25. History, labs, imaging studies, and electronic medical record have been reviewed by me. This note documented by the []house parent []ARMIN reflects my history, exam, and medical [...] from the original note were not included. [facility] - Infectious Diseases Advanced Practice Provider Consult Note Reason for Consult: Sacral ulcer osteomyelitis [facility]x at [facility] patient History of Present Illness: 59 yo male with PMHx significant for ESRD on HD, HTN, and PAD who was admitted at [facility] 10/03-11/28/24 after presenting with chest pain, [...] Pip-Tazo and Anidulafungin. He was transferred to [facility] on 11/28/24. There he was followed by our ID group and had had recurrent MSSA LRTI that was treated. Additionally, his sacral wound was debrided to bone on 01/02/25. Sacral wound Cx + E faecalis and Clostridium clostridioforme. He is to be on a course of Amp-Sulbactam x6 weeks through 02/13/25. He was discharged to SNF on 01/18. Patient presented to [facility] on 01/19 after self-dislodging tracheostomy. He was transferred to [facility] ICU for further airway management and [...] History: Diagnosis Date Acute renal failure (ARF) ([facility]) 10/19/2019 Anemia 12/30/2021 Calcification of abdominal aorta ([facility]) 10/08/202309/[address] abd Diverticulosis 10/08/2023 ESRD [place] hemodialysis [place] ([facility]) 10/26/2019 Hemodialysis patient [place] ([facility]) HTN (hypertension) 12/01/2022 Hypertension IgA nephropathy IgA nephropathy determined by biopsy of kidney 10/26/2019 Missed vaccination due to patient refusal 10/08/2023 Has a number of non-scientific based beliefs which interfere with his understanding and acceptance of the medical benefit of vaccination. Nonrheumatic aortic valve stenosis 10/08/2023 Paroxysmal A-fib ([facility] ([facility]) 08/18/2023 Tobacco abuse 10/08/2023 Past Surgical History: Past Surgical History: Procedure Laterality Date APPENDECTOMY CARDIAC CATHETERIZATION N/A 10/09/2024 Performed by Bob Watson MD at [facility] Cardiac Cath/EP Lab CARDIAC CATHETERIZATION Bilateral 11/01/2024 Performed by Bob Watson MD at [facility] Cardiac Cath/EP Lab CARDIAC CATHETERIZATION N/A 11/01/2024 Performed by Bob Watson MD at [facility] Cardiac Cath/EP Lab FISTULAGRAM (HISTORICAL) Left 09/15/2021 LEFT UPPER ARM HX AV FISTULA CREATION IR EMBOLIZATION 10/14/2024 IR EMBOLIZATION 10/14/2024 [facility] SPECIAL PROCEDURES IR FISTULAGRAM 08/07/2022 IR FISTULAGRAM 08/07/2022 [facility] IR IMAGING TONSILLECTOMY (HISTORICAL) Current Medications: Current Facility-Administered Medications Medication Dose Route Frequency Provider Last Rate Last Admin acetaminophen (Tylenol) tablet 1,000 mg 1,000 mg Oral q8h PRN Steve Lassiter MD 1,000 mg at 01/19/25 1540 ampicillin-sulbactam (Unasyn) 3,000 mg in sodium chloride 0.9 % 100 mL IVPB (Add-Lee) 3,000 mg IntraVENous q12h Steve Lassiter MD [...] Patient Unable To Answer (12/01/2024) Received from [facility] Overall Financial Resource Strain (CARDIA) Difficulty of Paying Living Expenses: Patient unable to answer Food Insecurity: Patient Unable To Answer (12/01/2024) Received from [facility] Hunger Vital Sign Worried About Running Out of Food in the Last Year: Patient unable to answer Ran Out of Food in the Last Year: Patient unable to answer Transportation Needs: No Transportation Needs (01/18/2025) Received from [facility] Transportation Source Has lack of transportation kept you from medical appointments or from getting medications?: No Has lack of transportation kept you from meetings, work, or from getting things needed for daily living?: No Physical Activity: Not on file Stress: No Stress Concern Present (01/18/2025) Received from [facility] [place] [facility] - Occupational Stress Questionnaire Feeling of Stress : Not at all Social Connections: Patient Unable To Answer (12/01/2024) Received from [facility] Social Connection and Isolation Panel [NHANES] Frequency of Communication with Friends and Family: Patient unable to answer Frequency of Social Gatherings with Friends and Family: Patient unable to answer Attends Hinduism Services: Patient unable to answer Active Member of Clubs or Organizations: Patient unable to answer Attends Club or Organization Meetings: Patient unable to answer Marital Status: Patient unable to answer Intimate Partner Violence: Patient Unable To Answer (11/28/2024) Received from [facility] Domestic Abuse Assessment Do you feel safe in your relationships at home?: Unable to assess Physical Abuse: Unable to assess [facility] Domestic Abuse - Type of Abuse: Not on file [facility] Domestic Abuse - Time Frame: Not on file [facility] Domestic Abuse - Signs and Symptoms: Not on file Verbal Abuse: Unable to assess [facility] Domestic Abuse - Reported To: Not on file Housing Stability: Patient Unable To Answer (12/01/2024) Received from [facility] Housing Stability Vital Sign Unable to [...] NEUTROABS 7.6* 7.5 7.5 -- Micro: Previous ([facility]) 01/02- sacral wound cx- [...] wound debrided to bone on 01/02 at [facility] (Cx with E faecalis and Clostridium) Plan [...] accounting for open encounter. Mikala MORAN PA-C [facility] Infectious Disease Cosigned by Gurdeep Cruz MD [...] gastrostomy tube placement, who presented to the [facility] emergency room from shelter [facility] on 01/19/2025 where he is admitted for IV antibiotics for multiple infected wounds including dry gangrene to the left foot and sacral ulcers. Patient accidentally pulled his tracheostomy and was therefore transferred to the emergency room. Patient transferred to [facility] for higher level of care. GI [...] throughout entire last hospitalization. On presentation to [facility] 01/19/2025 hemoglobin was 9.1. This morning dropped to 6.6. No transfusion but repeat hemoglobin 3 hours later at 8.2. Currently getting dialysis. Reports he had a BM 5 minutes ago and he does not know what stools have looked like. He denies abdominal pain. No nausea, vomiting. Per patient girlfriend SNF has been flipping [id number]-bfqyr between Coumadin and heparin secondary to patient INR. Assume last dose of Coumadin to be 01/18/2025. History of appendectomy and PEG placement. Allergies: Lisinopril Current Medications: Current Facility-Administered Medications: acetaminophen (Tylenol) tablet 1,000 mg, 1,000 mg, Oral, q8h PRN, Steve Lassiter MD, 1,000 mg at 01/19/25 1540 ampicillin-sulbactam (Unasyn) 3,000 mg in sodium chloride 0.9 % 100 mL IVPB (Add-Lee), 3,000 mg, IntraVENous, q12h, Steve Lassiter MD, [...] Diagnosis Date Noted Anemia 12/30/2021 Paroxysmal A-fib ([facility]) ([facility]) 08/18/2023 HTN (hypertension) 12/01/2022 ESRD on hemodialysis ([facility]) ([facility]) 10/26/2019 IgA nephropathy determined by biopsy of kidney 10/26/2019 Diverticulosis 10/08/2023 Nonrheumatic aortic valve stenosis 10/08/2023 Calcification of abdominal aorta [facility] [facility] 10/08/2023 Missed vaccination due to patient refusal 10/08/2023 Tobacco abuse 10/08/2023 Alcohol use disorder in remission 10/08/2023 Atrial flutter, unspecified type ([facility]) 10/03/2024 RSV (acute bronchiolitis due to respiratory syncytial virus) 10/03/2024 Aortic stenosis 10/03/2024 Upper GI bleed 10/03/2024 S/P AVR 10/03/2024 Acute hypoxic respiratory failure ([facility]) 10/03/2024 Acute encephalopathy 10/03/2024 Pneumoperitoneum 10/03/2024 Gastric ulceration 2024 Severe malnutrition ([facility]) ([facility]) 01/19/2025 Pleural effusion 11/28/2024 Peritonitis due to fungus ([facility]) 11/30/2024 History of abdominal surgery 11/30/2024 Leg DVT (deep venous thromboembolism), acute, left ([facility]) 11/30/2024 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, 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 of skin ([facility]) 11/30/2024 Tracheostomy dependence ([facility]) 11/30/2024 Leukocytosis 12/30/2024 Decubitus ulcer of sacral region, unstageable ([facility]) 12/30/2024 Pneumonia of both lungs due to methicillin susceptible Staphylococcus aureus (MSSA) ([facility]) 01/01/2025 Sacral osteomyelitis ([facility]) ([facility]) 01/03/2025 Acute respiratory failure with hypoxia ([facility]) [J96.01] 01/08/2025 Tracheostomy care ([facility]) [Z43.0] 01/08/2025 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[facility]) 01/08/2025 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 01/12/2025 Resolved Ambulatory Problems Diagnosis Date Noted Acute renal failure (ARF) ([facility]) 10/19/2019 New onset a-fib ([facility] ([facility]) 08/16/2023 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[facility]) 10/03/2024 Past Medical History: Diagnosis Date Hemodialysis patient ([facility] ([facility]) Hypertension IgA nephropathy Past Surgical History: [...] Patient Unable To Answer (12/01/2024) Received from [facility] Hunger Vital Sign Worried About Running Out of Food in the Last Year: Patient unable to answer Ran Out of Food in the Last Year: Patient unable to answer Transportation Needs: No Transportation Needs (01/18/2025) Received from [facility] Transportation Source Has lack of transportation kept you from medical appointments or from getting medications?: No Has lack of transportation kept you from meetings, work, or from getting things needed for daily living?: No Physical Activity: Not on file Stress: No Stress Concern Present (01/18/2025) Received from [facility] [place] of Occupational Health - Occupational Stress Questionnaire Feeling of Stress : Not at all Social Connections: Patient Unable To Answer (12/01/2024) Received from [facility] Social Connection and Isolation Panel [NHANES] Frequency of Communication with Friends and Family: Patient unable to answer Frequency of Social Gatherings with Friends and Family: Patient unable to answer Attends Hinduism Services: Patient unable to answer Active Member of Clubs or Organizations: Patient unable to answer Attends Club or Organization Meetings: Patient unable to answer Marital Status: Patient unable to answer Intimate Partner Violence: Patient Unable To Answer (11/28/2024) Received from [facility] Domestic Abuse Assessment Do you feel safe in your relationships at home?: Unable to assess Physical Abuse: Unable to assess [facility] Domestic Abuse - Type of Abuse: Not on file [facility] Domestic Abuse - Time Frame: Not on file [facility] Domestic Abuse - Signs and Symptoms: Not on file Verbal Abuse: Unable to assess [facility] Domestic Abuse - Reported To: Not on file Housing Stability: Patient Unable To Answer (12/01/2024) Received from [facility] Housing Stability Vital Sign Unable to Pay [...] 10/12/24, Coumadin, last dose suspected 01/18/25 at [facility] Acute Right occipital ICH- 10/22/24 ESRD [...] 59 y.o. male with who presented to [facility] as transfer for trach dislodgment. Palliative [...] pt was receiving and tolerating while at [facility]. Per MNT protocol will initiate EN as above given prior consult for TF ordering and management. This result has been reviewed by Casandra Everett RD, LD on 01/20/25 at 7:18 AM. [facility] Nephrology Consult Note Consults HPI The patient is a history of ESRD secondary to IgA nephropathy, currently HD-dependent via a left upper extremity AVF, on a Wednesday//Wednesday (TTS) dialysis schedule, with the last HD session [...] History: Diagnosis Date Acute renal failure (ARF) ([facility]) 10/19/2019 Anemia 12/30/2021 Calcification of abdominal aorta ([facility]) 10/08/202309/[address] abd Diverticulosis 10/08/2023 ESRD on hemodialysis ([facility]) ([facility]) 10/26/2019 Hemodialysis patient ([facility] ([facility]) HTN (hypertension) 12/01/2022 Hypertension IgA nephropathy IgA nephropathy determined by biopsy of kidney 10/26/2019 Missed vaccination due to patient refusal 10/08/2023 Has a number of non-scientific based beliefs which interfere with his understanding and acceptance of the medical benefit of vaccination. Nonrheumatic aortic valve stenosis 10/08/2023 Paroxysmal A-fib ([facility]) ([facility]) 08/18/2023 Tobacco abuse 10/08/2023 Social History [...] Patient Unable To Answer (12/01/2024) Received from [facility] Overall Financial Resource Strain (CARDIA) Difficulty of Paying Living Expenses: Patient unable to answer Food Insecurity: Patient Unable To Answer (12/01/2024) Received from [facility] Hunger Vital Sign Worried About Running Out of Food in the Last Year: Patient unable to answer Ran Out of Food in the Last Year: Patient unable to answer Transportation Needs: No Transportation Needs (01/18/2025) Received from [facility] Transportation Source Has lack of transportation kept you from medical appointments or from getting medications?: No Has lack of transportation kept you from meetings, work, or from getting things needed for daily living?: No Physical Activity: Not on file Stress: No Stress Concern Present (01/18/2025) Received from [facility] [place] of Occupational Health - Occupational Stress Questionnaire Feeling of Stress : Not at all Social Connections: Patient Unable To Answer (12/01/2024) Received from [facility] Social Connection and Isolation Panel [NHANES] Frequency of Communication with Friends and Family: Patient unable to answer Frequency of Social Gatherings with Friends and Family: Patient unable to answer Attends Hinduism Services: Patient unable to answer Active Member of Clubs or Organizations: Patient unable to answer Attends Club or Organization Meetings: Patient unable to answer Marital Status: Patient unable to answer Intimate Partner Violence: Patient Unable To Answer (11/28/2024) Received from [facility] Domestic Abuse Assessment Do you feel safe in your relationships at home?: Unable to assess Physical Abuse: Unable to assess [facility] Domestic Abuse - Type of Abuse: Not on file [facility] Domestic Abuse - Time Frame: Not on file [facility] Domestic Abuse - Signs and Symptoms: Not on file Verbal Abuse: Unable to assess [facility] Domestic Abuse - Reported To: Not on file Housing Stability: Patient Unable To Answer (12/01/2024) Received from [facility] Housing Stability Vital Sign Unable to Pay [...] sodium chloride 0.9 % 100 mL IVPB (Add-Lee), 3,000 mg, IntraVENous, Daily, Steve Lassiter MD [...] from last 7 days Lab Units 01/19/25 0342 01/16/25 0316 01/15/25 0257 SODIUM mmol/L 135* 138 135* POTASSIUM mmol/L 4.4 4.0 5.6* CHLORIDE mmol/L 95* 95* 93* CO2 mmol/L 25 28 27 BUN mg/dL 80* 64* 117* CREATININE mg/dL 3.50* 2.46* 3.97* GLUCOSE mg/dL 85 85 95 CALCIUM mg/dL 10.6* 9.6 10.2 Results from last 7 days Lab Units 01/19/25 0342 01/16/25 0316 01/15/25 0257 SODIUM mmol/L 135* < > 135* [...] last 7 days Lab Units 01/19/25 0652 01/19/252 01/15/25 0257 WBC AUTO 10*3/uL 10.9* 11.6* 12.0* [...] airway management needs. Maintain NPO status per [facility]ER recommendations until airway stabilization; consider modification of HD orders if NPO persists beyond 24-48 hours impacting volume/nutrition Please message me through goBramble chat with any questions or concerns. Wellington Nicole MD 01/19/2025 4:13 PM [facility] [address] [place] [address], [address] [place] [address] Office: [phone] Associated Order(s): IP CONSULT TO DIETITIAN; IP [...] EN only as sole source of nutrition. [facility] was following while pt was at [facility]. [facility] HANGER consulted inpatient and recommending strict NPO. RD [...] increased to goal. Will continue to monitor SHEET HANGER in the event that oral diet can [...] Accumulation: No significant fluid accumulation (per flowsheets) Professional Athlete Strength: Not Performed Nutrition Assessment: pt with [...] Prostat, pt was stabilized and transferred to [facility] for ongoing care, vent liberation and rehab, while at [facility] RD was following and pt was receiving Nepro @ 50mls/hr, pt was discharged from [facility] to SNF on 01/18/25, pt now presented to [facility] ED on 01/19/25 from [facility] due to trach dislodgement, pt stated he was trying to disconnect his vent to transfer to another room but accidentally pulled out his tracheostomy, event happened approximately 45 minutes before ED arrival, ED attempted to place tracheostomy tube back but was unsuccessful thus decision was made to transfer pt to [facility] ICU for further airway management and [...] has been like this since [facility], pt was transferred to ICU for further management, Nephrology and wound care consults pending, SHEET HANGER was also consulted and recommending strict NPO. In terms of nutrition pt remains NPO at this time, RD spoke with pt in room, no family/visitors present, pt states that he was only receiving nutrition via [facility], states his goals are to 'eat ice [...] (kg): 58.9 kg Total Energy Requirements (kcals/day): 2060-2355kcals/day Weight Used for Protein Requirements: Current Weight in Kg Used for Protein Requirements: 58.9 kg Estimated Total Protein (g/day): 82-106gm pro/day- + wounds and ESRD/HD Estimated Daily Total Fluid (ml/day): per MD recommendations Nutrition Related Findings: Pt presented from SNF, prolonged admit at [facility] 10/03-11/28/24, discharged to [facility] and recently transferred to [facility] Orientation Level: Oriented to situation, Oriented to time, Oriented to person, Disoriented to place, Oriented/disoriented at times, Cognition: Follows commands, Best Verbal Response: Confused, Patient Behaviors/Mood: Anxious, Cooperative, Restless Teeth: Missing teeth Swallow: Other (Comment) ([facility]) Kee Scale Score: 15. Wound Type: Wound [...] bedscale, 10/31: 200#, 11/28: 161#, 01/18: 142#) [place] Body Weight (lbs) (Calculated): 166 lbs [place] Body Weight (Kg) (Calculated): 75 kg % [place] Body Weight (Calculated): 78.2 % BMI (kg/m2) [...] Nutrition Dana El RD Contact: available via goBramble chat or *[phone] Associated Order(s): INPATIENT CONSULT TO WOUND CARE PROVIDERS Images from the original note were not included. [facility] Wound Care CONSULT Note Jun Snyder AGE: [...] diverticulosis, IgA nephropathy, severe that presented to [facility] ED from a facility due to trach dislodgement. Wound Care consulted for Pressure Injury sacrum and Ischemic ulcers to left toes" PAST MEDICAL HISTORY Past Medical History: Diagnosis Date Acute renal failure (ARF) ([facility]) 10/19/2019 Anemia 12/30/2021 Calcification of abdominal aorta ([facility]) 10/08/202309/[address] abd Diverticulosis 10/08/2023 ESRD on hemodialysis ([facility]) ([facility]) 10/26/2019 Hemodialysis patient [place] ([facility]) HTN (hypertension) 12/01/2022 Hypertension IgA nephropathy IgA nephropathy determined by biopsy of kidney 10/26/2019 Missed vaccination due to patient refusal 10/08/2023 Has a number of non-scientific based beliefs which interfere with his understanding and acceptance of the medical benefit of vaccination. Nonrheumatic aortic valve stenosis 10/08/2023 Paroxysmal A-fib ([facility]) ([facility]) 08/18/2023 Tobacco abuse 10/08/2023 PAST SURGICAL HISTORY Past Surgical History: Procedure Laterality Date APPENDECTOMY CARDIAC CATHETERIZATION N/A 10/09/2024 Performed by Bob Watson MD at [facility] Cardiac Cath/EP Lab CARDIAC CATHETERIZATION Bilateral 11/01/2024 Performed by Bob Watson MD at [facility] Cardiac Cath/EP Lab CARDIAC CATHETERIZATION N/A 11/01/2024 Performed by Bob Watson MD at [facility] Cardiac Cath/EP Lab FISTULAGRAM (HISTORICAL) Left 09/15/2021 LEFT UPPER ARM HX AV FISTULA CREATION IR EMBOLIZATION 10/14/2024 IR EMBOLIZATION 10/14/2024 [facility] SPECIAL PROCEDURES IR FISTULAGRAM 08/07/2022 IR FISTULAGRAM 08/07/2022 [facility] IR IMAGING TONSILLECTOMY (HISTORICAL) FAMILY HISTORY Family [...] Medication Sig Dispense Refill epoetin rowan-epbx (Retacrit) 91000 UNIT/ML injection Inject 0.79 mL (7,900 Units) [...] to follow Recommend to follow up at [facility] Outpatient wound care center after [...] 4:05 PM EDT documented in this encounter [facility] 01-19-2025 History and physical note Images [...] diverticulosis, IgA nephropathy, severe that presented to [facility] ED from a facility due to trach dislodgement. Per patient, was trying to disconnect his vent to transfer to another room but accidentally pulled out his tracheostomy. This event happened approximately 45 minutes before ED arrival. ED attempted to place tracheostomy tube back but were unsuccessful. Decision was made to transfer patient to [facility] ICU for further airway management and [...] History: Diagnosis Date Acute renal failure (ARF) ([facility]) 10/19/2019 Anemia 12/30/2021 Calcification of abdominal aorta ([facility]) 10/08/202309/[address] abd Diverticulosis 10/08/2023 ESRD on hemodialysis ([facility] ([facility]) 10/26/2019 Hemodialysis patient ([facility] ([facility]) HTN (hypertension) 12/01/2022 Hypertension IgA nephropathy IgA nephropathy determined by biopsy of kidney 10/26/2019 Missed vaccination due to patient refusal 10/08/2023 Has a number of non-scientific based beliefs which interfere with his understanding and acceptance of the medical benefit of vaccination. Nonrheumatic aortic valve stenosis 10/08/2023 Paroxysmal A-fib ([facility] ([facility]) 08/18/2023 Tobacco abuse 10/08/2023 Past Surgical History: Procedure Laterality Date APPENDECTOMY CARDIAC CATHETERIZATION N/A 10/09/2024 Performed by Bob Watson MD at [facility] Cardiac Cath/EP Lab CARDIAC CATHETERIZATION Bilateral 11/01/2024 Performed by Bob Watson MD at [facility] Cardiac Cath/EP Lab CARDIAC CATHETERIZATION N/A 11/01/2024 Performed by Bob Watson MD at [facility] Cardiac Cath/EP Lab FISTULAGRAM (HISTORICAL) Left 09/15/2021 LEFT UPPER ARM HX AV FISTULA CREATION IR EMBOLIZATION 10/14/2024 IR EMBOLIZATION 10/14/2024 [facility] SPECIAL PROCEDURES IR FISTULAGRAM 08/07/2022 IR FISTULAGRAM 08/07/2022 [facility] IR IMAGING TONSILLECTOMY (HISTORICAL) Family History Problem [...] Patient Unable To Answer (12/01/2024) Received from [facility] Overall Financial Resource Strain (CARDIA) Difficulty of Paying Living Expenses: Patient unable to answer Food Insecurity: Patient Unable To Answer (12/01/2024) Received from [facility] Hunger Vital Sign Worried About Running Out of Food in the Last Year: Patient unable to answer Ran Out of Food in the Last Year: Patient unable to answer Transportation Needs: No Transportation Needs (01/18/2025) Received from [facility] SDOH Transportation Source Has lack of transportation kept you from medical appointments or from getting medications?: No Has lack of transportation kept you from meetings, work, or from getting things needed for daily living?: No Physical Activity: Not on file Stress: No Stress Concern Present (01/18/2025) Received from [facility] of Occupational Health - Occupational Stress Questionnaire Feeling of Stress : Not at all Social Connections: Patient Unable To Answer (12/01/2024) Received from [facility] Social Connection and Isolation Panel [NHANES] Frequency of Communication with Friends and Family: Patient unable to answer Frequency of Social Gatherings with Friends and Family: Patient unable to answer Attends Hinduism Services: Patient unable to answer Active Member of Clubs or Organizations: Patient unable to answer Attends Club or Organization Meetings: Patient unable to answer Marital Status: Patient unable to answer Intimate Partner Violence: Patient Unable To Answer (11/28/2024) Received from [facility] Domestic Abuse Assessment Do you feel safe in your relationships at home?: Unable to assess Physical Abuse: Unable to assess [facility] Domestic Abuse - Type of Abuse: Not on file [facility] Domestic Abuse - Time Frame: Not on file [facility] Domestic Abuse - Signs and Symptoms: Not on file Verbal Abuse: Unable to assess [facility] Domestic Abuse - Reported To: Not on file Housing Stability: Patient Unable To Answer (12/01/2024) Received from [facility] Housing Stability Vital Sign Unable to Pay for Housing in the Last Year: Patient unable to answer Number of Times Moved in the Last Year: 0 Homeless in the Last Year: Patient unable to answer Allergies Allergen Reactions Lisinopril Swelling and Angioedema Prior to Admission medications Medication Sig Start Date End Date Taking? Authorizing Provider epoetin rowan-epbx (Retacrit) 37201 UNIT/ML injection Inject 0.79 mL (7,900 Units) [...] Normal [] Scar/Lesion/Mass Inspection of teeth/lips/gums Dentition: [][place] Teeth []Dentures Lips/Gums: []Intact []Lesion Present Mucosa: [][place] []Moist []Dry Neck: External Appearance Tracheostomy hole [...] 18.5* ABGs: No results for input(s): "PHART", "[id number]", "PO2ART", "NRQ2YOQ", "SO2ART", "I5BWAMIK" in the last 72 hours. Lactic Acid: [...] Plan: Principal Problem: Complication of tracheostomy (CMS/HCC) ([facility]) Assessment: Trach dislodgement Chest pain ESRD [...] PM EDT I have personally performed a wiat-[id number]-nblx diagnostic evaluation on this patient on date [...] to have bile peritonitis 11/28/24: transferred to [facility]. He continued on HD at [facility]. Reportedly had ongoing issues with delirium according to his partner, Toma who was at bedside and provided history. Developed severe sacral ulcer and sacral ostomyelitis at [facility]. He was progressing with SHEET HANGER and using a PMV. Has not done any capping trials. Was transferred to a facility in [place]; there he inadvertently dislodged his tracheostomy. He initially presented to the [facility] emergency dept. He was transferred to [facility] in case of emergetn airway compromise. Assessment: Trach dislodgement, high risk of respiratory failure Chronic respiratory failure due to failure of airway protection ESRD Sacral osteomyelitis s/p AVR Full Code Plan: Admit to MICU Close monitorign for airway compromise Restart abx for osteomyelitis SHEET HANGER eval; [facility] Critical Care Time: 33 minutes Total critical care time caring for this patient with life threatening, unstable organ failure, including direct patient contact, management of life support systems, review of data including imaging and labs, discussions with other team members and physicians, excluding procedures. Electronically signed by Bruce Nguyen MD documented in this encounter [facility] 01-19-2025 Emergency department Note EMERGENCY DEPARTMENT [...] who presents to the emergency department From shelter facility for accidental dislodgment of his tracheostomy [...] nephropathy, hypertension, and currently being treated at shelter facility with IV antibiotics for multiple infected [...] History: Diagnosis Date Acute renal failure (ARF) ([facility]) 10/19/2019 Anemia 12/30/2021 Calcification of abdominal aorta ([facility]) 10/08/202309/[address] abd Diverticulosis 10/08/2023 ESRD [place] hemodialysis [place] ([facility]) 10/26/2019 Hemodialysis patient [place] ([facility]) HTN (hypertension) 12/01/2022 Hypertension IgA nephropathy IgA nephropathy determined by biopsy of kidney 10/26/2019 Missed vaccination due to patient refusal 10/08/2023 Has a number of non-scientific based beliefs which interfere with his understanding and acceptance of the medical benefit of vaccination. Nonrheumatic aortic valve stenosis 10/08/2023 Paroxysmal A-fib ([facility]) ([facility]) 08/18/2023 Tobacco abuse 10/08/2023 SURGICAL HISTORY Past Surgical History: Procedure Laterality Date APPENDECTOMY CARDIAC CATHETERIZATION N/A 10/09/2024 Performed by Bob Watson MD at [facility] Cardiac Cath/EP Lab CARDIAC CATHETERIZATION Bilateral 11/01/2024 Performed by Bob Watson MD at [facility] Cardiac Cath/EP Lab CARDIAC CATHETERIZATION N/A 11/01/2024 Performed by Bob Watson MD at [facility] Cardiac Cath/EP Lab FISTULAGRAM (HISTORICAL) Left 09/15/2021 LEFT UPPER ARM HX AV FISTULA CREATION IR EMBOLIZATION 10/14/2024 IR EMBOLIZATION 10/14/2024 [facility] SPECIAL PROCEDURES IR FISTULAGRAM 08/07/2022 IR FISTULAGRAM 08/07/2022 [facility] IR IMAGING TONSILLECTOMY (HISTORICAL) CURRENT MEDICATIONS Previous Medications EPOETIN ROWAN-EPBX (RETACRIT) 19938 UNIT/ML INJECTION Inject 0.79 mL (7,900 Units) [...] Transportation Needs (01/18/2025) Received from [facility] Transportation Source Has lack of transportation kept you from medical appointments or from getting medications?: No Has lack of transportation kept you from meetings, work, or from getting things needed for daily living?: No Stress: No Stress Concern Present (01/18/2025) Received from [facility] [place] of Occupational Health - Occupational Stress Questionnaire Feeling of Stress : Not at all Social Connections: Patient Unable To Answer (12/01/2024) Received from [facility] Social Connection and Isolation Panel [NHANES] Frequency of Communication with Friends and Family: Patient unable to answer Frequency of Social Gatherings with Friends and Family: Patient unable to answer Attends Hinduism Services: Patient unable to answer Active Member of Clubs or Organizations: Patient unable to answer Attends Club or Organization Meetings: Patient unable to answer Marital Status: Patient unable to answer Intimate Partner Violence: Patient Unable To Answer (11/28/2024) Received from [facility] Medical Domestic Abuse Assessment Do you feel safe in your relationships at home?: Unable to assess Physical Abuse: Unable to assess Verbal Abuse: Unable to assess Housing Stability: Patient Unable To Answer (12/01/2024) Received from [facility] Housing Stability Vital Sign Unable to Pay [...] nursing note reviewed. Exam conducted with a customer development manager present. Constitutional: General: He is not in [...] accidental dislodgment of his tracheostomy tube at shelter facility as described in the HPI. Reportedly [...] necessary. Dr. Ponce recommended ICU admission to [facility] for observation with possible replacement tracheostomy if needed. ICU at [facility] was consulted and I spoke with Dr. Nguyen regarding admission to their service. He agrees with this indication and patient admitted to [facility] ICU. Diagnoses as of 01/19/25 0300 [...] No FINAL IMPRESSION 1. Complication of tracheostomy ([facility]) ([facility]) DISPOSITION Admit 01/19/2025 03:00:18 AM PATIENT [...] 01/19/25 0301 Pt arrived Via EMS from [facility]. Pt removed his trach which he is typically on 5L. 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 He is NPO and receiving IV antibiotics for the results of his blood cultures. Pt was recently transferred to [place] [facility]. Pt arrived with a pressure of 88/52 and 96% on room air. RT and MD at bedside upon arrival. documented in this encounter [facility] 01-18-2025 History of Presen t illness Narrative [facility] billing documented in this encounter [facility] 01-17-2025 History of Presen t illness Narrative Seen at [facility] documented in this encounter [facility] 01-17-2025 History of Presen t illness Narrative [facility] billing documented in this encounter [facility] 01-16-2025 History of Presen t illness Narrative [facility] documented in this encounter [facility] 01-15-2025 History of Presen t illness Narrative Seen at [facility] documented in this encounter [facility] 01-15-2025 History of Presen t illness Narrative [facility] documented in this encounter [facility] 01-14-2025 History of Presen [facility] illness Narrative [facility] documented in this encounter [facility] 01-12-2025 History of Presen [facility] illness Narrative [facility] documented in this encounter [facility] 01-12-2025 History of Presen t illness Narrative Seen at [facility] documented in this encounter [facility] 01-11-2025 History of Presen [facility] illness Narrative [facility] documented in this encounter [facility] 01-11-2025 History of Presen t illness Narrative [facility]en at [facility] documented in this encounter [facility] 01-10-2025 History of Presen t illness Narrative [facility] documented in this encounter [facility] 01-09-2025 History of Presen t illness Narrative [facility] documented in this encounter [facility] 01-09-2025 History of Presen t illness Narrative Seen at [facility] documented in this encounter [facility] 01-08-2025 History of Presen t illness Narrative [facility] documented in this encounter [facility] 01-08-2025 History of Presen t illness Narrative Seen at [facility] documented in this encounter [facility] 01-05-2025 History of Presen t illness Narrative Patient seen by me at [facility]. Documentation including history, exam and plan documented in [facility]. This encounter is for billing only. documented in this encounter [facility] 01-05-2025 History of Presen t illness Narrative [facility] 01/05 documented in this encounter [facility] 01-04-2025 History of Presen t illness Narrative Patient seen by me at [facility]. Documentation including history, exam and plan documented in [facility]. This encounter is for billing only. documented in this encounter [facility] 01-04-2025 History of Presen t illness Narrative [facility] 01/04 documented in this encounter [facility] 01-03-2025 History of Presen t illness Narrative Patient seen by me at [facility]. Documentation including history, exam and plan documented in [facility] EMR. This encounter is for billing only. documented in this encounter [facility] 01-03-2025 History of Presen t illness Narrative Pt seen at [facility]. Complete documentation under [facility]'s EMR. documented in this encounter [facility] 01-02-2025 History of Presen t illness Narrative Pt seen at [facility]. Complete documentation under [facility] EMR. documented in this encounter [facility] 01-02-2025 History of Presen t illness Narrative Patient seen by me at [facility]. Documentation including history, exam and plan documented in [facility] EMR. This encounter is for billing only. documented in this encounter [facility] 01-01-2025 History of Presen t illness Narrative Pt seen at [facility]. Complete documentation under [facility] EMR. documented in this encounter [facility] 01-01-2025 History of Presen t illness Narrative Patient seen by me at [facility]. Documentation including history, exam and plan documented in [facility]. This encounter is for billing only. documented in this encounter [facility] 01-01-2025 History of Presen t illness Narrative Subsequent visit today at [facility] documented in this encounter [facility] 12-30-2024 History of Presen t illness Narrative Pt seen at [facility]. Complete documentation under [facility] EMR. documented in this encounter [facility] 12-28-2024 History of Presen t illness Narrative Patient seen by me at [facility]. Complete documentation including history with assessment and plan were documented in [facility] EMR. This encounter is for billing only. documented in this encounter [facility] 12-27-2024 History of Presen t illness Narrative Patient seen by me at [facility]. Complete documentation including history with assessment and plan were documented in [facility] EMR. This encounter is for billing only. documented in this encounter [facility] 12-26-2024 History of Presen t illness Narrative Patient seen by me at [facility]. Complete documentation including history with assessment and plan were documented in [facility] EMR. This encounter is for billing only. documented in this encounter [facility] 12-22-2024 History of Presen t illness Narrative Patient seen by me at [facility] in [place]. Complete documentation including history with assessment and plan were documented in [facility] EMR. This encounter is for billing only. documented in this encounter [facility] 12-21-2024 History of Presen t illness Narrative Patient seen by me at [facility] in [place]. Complete documentation including history with assessment and plan were documented in [facility] EMR. This encounter is for billing only. documented in this encounter [facility] 12-20-2024 History of Presen t illness Narrative Patient seen by me at [facility] in [place]. Complete documentation including history with assessment and plan were documented in [facility] EMR. This encounter is for billing only. documented in this encounter [facility] 12-19-2024 History of Presen t illness Narrative Patient seen by me at [facility] in [place]. Complete documentation including history with assessment and plan were documented in [facility] EMR. This encounter is for billing only. documented in this encounter [facility] 12-18-2024 History of Presen t illness Narrative Patient seen by me at [facility] in [place]. Complete documentation including history with assessment and plan were documented in [facility] EMR. This encounter is for billing only. documented in this encounter [facility] 12-15-2024 History of Presen t illness Narrative [facility] documented in this encounter [facility] 12-14-2024 History of Presen t illness Narrative [facility] documented in this encounter [facility] 12-14-2024 Telephone encount er Note [facility] is still at [facility]. I spoke to Karla, director of casework services, and she stated that patient has a tentative discharge date on 12/25. He will be going to a facility after that. Karla is not sure which one. I will check back with her closer to that date. [facility] 12-14-2024 Miscellaneous Notes Formattin g of this note might be different from the original. Patient is still at [facility]. I spoke to Karla, director of casework services, and she stated that patient has a [...] phone is restricted. Unable to lvm. Sent [employer] message. Thanks Will hold to contact patient s/p discharge. Thanks Pt remains admitted at this time. GI staff to contact pt for scheduling OV s/p discharge. Patient needs close follow up for repeat EGD for duodenal ulcer, had IR embolization of GDA. Currently in ICU. Thanks. documented in this encounter [facility] 12-13-2024 History of Presen t illness Narrative [facility] documented in this encounter [facility] 12-13-2024 Telephone encount er Note Called and spoke with patients son to discuss scheduling hospital follow up appointment. Omar advised me that the patient will be in the hospital termite treater as a lot happened while he was hospitalized. Patient does not wish to schedule at this time. Thanks [facility] 12-13-2024 Miscellaneous Notes Formattin g of this note might be different from the original. Called and spoke with patients son to discuss scheduling hospital follow up appointment. Omar advised me that the patient will be in the hospital termite treater as a lot happened while he was hospitalized. Patient does not wish to schedule at this time. Thanks Attempted to call patient to schedule hospital follow up. Patients phone is restricted. Unable to lvm. Sent [employer] message. Thanks Will hold to contact patient s/p discharge. Thanks Pt remains admitted at this time. GI staff to contact pt for scheduling OV s/p discharge. Patient needs close follow up for repeat EGD for duodenal ulcer, had IR embolization of GDA. Currently in ICU. Thanks. documented in this encounter [facility] 12-12-2024 History of Presen t illness Narrative [facility] documented in this encounter [facility] 12-11-2024 History of Presen t illness Narrative Seen at [facility] 12/11/24 documented in this encounter [facility] 12-11-2024 History of Presen t illness Narrative [facility] documented in this encounter [facility] 12-11-2024 Telephone encount er Note Attempted to call patient to schedule hospital follow up. Patients phone is restricted. Unable to lvm. Sent [employer] message. Thanks [facility] 12-11-2024 Miscellaneous Notes Formattin g of this note might be different from the original. Attempted to call patient to schedule hospital follow up. Patients phone is restricted. Unable to lvm. Sent [employer] message. Thanks Will hold to contact patient s/p discharge. Thanks Pt remains admitted at this time. GI staff to contact pt for scheduling OV s/p discharge. Patient needs close follow up for repeat EGD for duodenal ulcer, had IR embolization of GDA. Currently in ICU. Thanks. documented in this encounter [facility] 12-07-2024 History of Presen t illness Narrative [facility] documented in this encounter [facility] 12-07-2024 History of Presen t illness Narrative [facility] 12/07/24 documented in this encounter [facility] 12-06-2024 History of Presen t illness Narrative [facility] documented in this encounter [facility] 12-06-2024 History of Presen t illness Narrative [facility] 12/06/24 documented in this encounter [facility] 12-05-2024 History of Presen t illness Narrative [facility] documented in this encounter [facility] 12-04-2024 History of Presen t illness Narrative Follow-up visit today at [facility] documented in this encounter [facility] 12-04-2024 History of Presen t illness Narrative [facility] 12/04/24 documented in this encounter [facility] 12-01-2024 History of Presen t illness Narrative [facility] 12/01/24 documented in this encounter [facility] 12-01-2024 History of Presen t illness Narrative I did a level 4 consult on this patient [facility]. In reviewing Dr. Garcia's note she noted acute systolic right heart failure related to and accompanied by pulmonary hypertension. She noted the need for midodrine. Dr. Chow waited on atrial flutter and atrial tachycardia. He was put on amiodarone and attempt was YG cardioversion, unsuccessful. [facility] flutter. documented in this encounter [facility] 12-01-2024 History of Presen t illness Narrative [facility] documented in this encounter [facility] 11-30-2024 History of Presen t illness Narrative [facility] documented in this encounter [facility] 11-30-2024 History of Presen t illness Narrative [facility] 11/30/24 documented in this encounter [facility] 11-29-2024 History of Presen t illness Narrative [facility] 11/29/24 documented in this encounter [facility] 11-29-2024 History of Presen t illness Narrative [facility] documented in this encounter [facility] 11-28-2024 Telephone encount er Note Name of Caller: Herminia Contact Physician requesting Consult: Michelle Caruso APRN Patient Location (facility name, room, bed number): [facility], [facility] Patient Diagnosis/Reason for Consult:SOB Provider being paged: Dr Nathan Time page was sent: [phone] Department of provider being paged: [facility] Page Content: routine consult requested. Message sent via Secure Chat [facility] 11-28-2024 Miscellaneous Notes Formattin g of this note might be different from the original. Name of Caller: Herminia Contact Physician requesting Consult: Michelle Caruso APRN Patient Location (facility name, room, bed number): [facility], [facility] Patient Diagnosis/Reason for Consult:SOB Provider being paged: Dr Nathan Time page was sent: [phone] Department of provider being paged: [facility] Page Content: routine consult requested. Message sent via Secure Chat documented in this encounter [facility] 10-17-2024 Telephone encount er Note Will hold to contact patient s/p discharge. Thanks [facility] 10-17-2024 Miscellaneous Notes Formattin g of this note might be different from the original. Will hold to contact patient s/p discharge. Thanks Pt remains admitted at this time. GI staff to contact pt for scheduling OV s/p discharge. Patient needs close follow up for repeat EGD for duodenal ulcer, had IR embolization of GDA. Currently in ICU. Thanks. documented in this encounter [facility] 10-17-2024 Miscellaneous Notes Formattin g of this note might be different from the original. Will hold to contact patient s/p discharge. Thanks Pt remains admitted at this time. GI staff to contact pt for scheduling OV s/p discharge. Patient needs close follow up for repeat EGD for duodenal ulcer, had IR embolization of GDA. Currently in ICU. Thanks. documented in this encounter [facility] 10-17-2024 Telephone encount er Note Pt remains admitted at this time. GI staff to contact pt for scheduling OV s/p discharge. [facility] 10-16-2024 Telephone encount er Note Patient needs close follow up for repeat EGD for duodenal ulcer, had IR embolization of GDA. Currently in ICU. Thanks. [employer] [facility] Work Phone: 10-16-2024 Miscellaneous Notes Formattin g of this note might be different from the original. Patient needs close follow up for repeat EGD for duodenal ulcer, had IR embolization of GDA. Currently in ICU. Thanks. documented in this encounter [facility] 10-12-2024 Note Formatting of this n ote is different from the original. Patient: Jair Snyder Procedure Summary Date: 10/12/24 Room / Location: [address] Operating Room Anesthesia Start: 725 Anesthesia [...] once all PACU criteria has been met. [facility] [employer] [facility] 10-12-2024 Miscellaneous Notes Formattin g of this note is different from the original. Patient: Jair Snyder Procedure Summary Date: 10/12/24 Room / Location: [address] Operating Room Anesthesia Start: 725 Anesthesia [...] has been met. documented in this encounter [facility] 10-12-2024 Anesthesiology Postoperative evaluation and management note Patient: Jair Snyder Procedure Summary Date: 10/12/24 Room / Location: [facility] Operating Room Anesthesia Start: 725 Anesthesia Stop: [...] opportunity for questions and acknowledgement of understanding. Phone: 10-12-2024 Surgical operatio n note Patient: Jair Snyder Procedure Summary Date: 10/12/24 Room / Location: [facility] Operating Room Anesthesia Start: 725 Anesthesia Stop: [...] during the procedure: no complications. Staffing Performed: [employer] Resident/FOREIGN [employer] SPECIALTY COOK: Rudolph German CRNA Associated Order(s): Airway Airway Date/Time: 10/12/2024 7:38 AM Urgency: scheduled Airway not difficult General Information and Staff Patient location during procedure: Procedural Anesthesiologist: Vincent Wilson MD Resident/FOREIGN [employer]OD SPECIALTY COOK: Rudolph German CRNA Performed: anesthesiologist Indications and [...] procedure well with no complications. Staffing Performed: [employer] Resident/FORE[employer] SPECIALTY COOK: Rudolph German CRNA Patient: Jair Snyder Procedure Information Date/Time: 10/12/24 0730 Procedures: AORTIC VALVE REPAIR, POSSIBLE REPLACEMENT (Chest) - 7:30 am, 5 hours TRICUSPID REPLACEMENT WITH RING (Chest) TRANSESOPHAGEAL ECHOCARDIOGRAM Location: [facility] Operating Room Surgeons: Luciano Montemayor MD Relevant Problems Cardio (+) Aortic stenosis (+) Atrial flutter, unspecified type ([facility]) (+) Calcification of abdominal aorta ([facility]) (+) HTN (hypertension) (+) Nonrheumatic aortic valve stenosis (+) Paroxysmal A-fib ([facility]) ([facility]) GI (+) Diverticulosis /Renal (+) ESRD on hemodialysis ([facility]) ([facility]) (+) IgA nephropathy determined by biopsy of kidney Past Medical History: Past Medical History: 10/19/2019: Acute renal failure (ARF) ([facility]) 12/30/2021: Anemia 10/08/2023: Calcification of abdominal aorta ([facility]) Comment: 09/[address] abd 10/08/2023: Diverticulosis 10/26/2019: ESRD on hemodialysis ([facility]) ([facility]) No date: Hemodialysis patient ([facility]) ([facility]) 12/01/2022: HTN (hypertension) No date: Hypertension No date: IgA nephropathy 10/26/2019: IgA nephropathy determined by biopsy of kidney 10/08/2023: Missed vaccination due to patient refusal Comment: Has a number of non-scientific based beliefs which interfere with his understanding and acceptance of the medical benefit of vaccination. 10/08/2023: Nonrheumatic aortic valve stenosis 08/18/2023: Paroxysmal A-fib ([facility]) ([facility]) 10/08/2023: Tobacco abuse Past Surgical History: Past Surgical History: No date: APPENDECTOMY 10/09/2024: CARDIAC CATHETERIZATION; N/A Comment: Performed by Bob Watson MD at [facility] Cardiac Cath/EP Lab 09/15/2021: FISTULAGRAM (HISTORICAL); Left Comment: LEFT UPPER ARM No date: HX AV FISTULA CREATION 08/07/2022: IR FISTULAGRAM Comment: IR FISTULAGRAM 08/07/2022 [facility] IR IMAGING No date: TONSILLECTOMY (HISTORICAL) Social [...] 10:45:28 EST by Jayjay Garcia Signed by: Jayajy Garcia on 10/10/2024 10:45 AM Equipment Requests: Additional Equipment Requests documented in this encounter [facility] 10-12-2024 Procedure anesthe jaki Narrative Procedure [...] heparin injection 1,000 units/mL 38,000 Units phenylephrine (KEYUR-SYNEPHRINE) injection 1,000 mcg ceFAZolin (Ancef) vial 1 [...] 08/17/23; Placement Time: 1107 08/17/23 1107 by aJyesh Sotomayor RN Wound/Incision 10/09/24; 0330; Othe r [...] Per order 10/12/24 0737 by Rudolph German, [employer] 10/16/24 0930 by Wanda Hays RN ETT [...] Hunter Dove RN [id number] Anesthesiology procedure note* Anesthesia Procedure Notes - [...] during the procedure: no complications. Staffing Performed: [employer] Resident/[employer]OOK: Rudolph German CRNA [id number] Anesthesiology procedure note* Anesthesia Procedure Notes - Rudolph German CRNA - 10/12/2024 7:49 AM ESTAssociated Order(s): Airway Airway Date/Time: 10/12/2024 7:38 AM Urgency: scheduled Airway not difficult General Information and Staff Patient location during procedure: Procedural Anesthesiologist: Vincent Wilson MD Resident/FOREIGN FOOD SPECIALTY COOK: Rudolph German CRNA Performed: anesthesiologist Indications and [...] 21 Number of attempts at approach: 1 [facility] [id number] Anesthesiology procedure note* Anesthesia Procedure Notes - [...] procedure well with no complications. Staffing Performed: FOREIGN FOOD SPECIALTY COOK Resident/FOREIGN FOOD SPECIALTY COOK: Rudolph German CRNA [facility] [id number] Anesthesiology Preoperative evaluation and management note* Anesthesia Preprocedure Evaluation - Vincent Wilson MD - 10/12/2024 6:56 AM EST Patient: Jair Snyder Procedure Information Date/Time: 10/12/24 0730 Procedures: AORTIC VALVE REPAIR, POSSIBLE REPLACEMENT (Chest) - 7:30 am, 5 hours TRICUSPID REPLACEMENT WITH RING (Chest) TRANSESOPHAGEAL ECHOCARDIOGRAM Location: [facility] OR [address] [place] [address] Operating Room Surgeons: Luciano Montemayor MD Relevant Problems Cardio (+) Aortic stenosis (+) Atrial flutter, unspecified type ([facility]) (+) Calcification of abdominal aorta ([facility]) (+) HTN (hypertension) (+) Nonrheumatic aortic valve stenosis (+) Paroxysmal A-fib (CMS/HCC) ([facility]) GI (+) Diverticulosis /Renal (+) ESRD on hemodialysis (CMS/HCC) ([facility]) (+) IgA nephropathy determined by biopsy of kidney Past Medical History: Past Medical History: 10/19/2019: Acute renal failure (ARF) ([facility]) 12/30/2021: Anemia 10/08/2023: Calcification of abdominal aorta ([facility]) Comment: 09/[address] abd 10/08/2023: Diverticulosis 10/26/2019: ESRD on hemodialysis ([facility]) ([facility]) No date: Hemodialysis patient (CMS/HCC) ([facility]) 12/01/2022: HTN (hypertension) No date: Hypertension No date: IgA nephropathy 10/26/2019: IgA nephropathy determined by biopsy of kidney 10/08/2023: Missed vaccination due to patient refusal Comment: Has a number of non-scientific based beliefs which interfere with his understanding and acceptance of the medical benefit of vaccination. 10/08/2023: Nonrheumatic aortic valve stenosis 08/18/2023: Paroxysmal A-fib ([facility]/HCC) ([facility]) 10/08/2023: Tobacco abuse Past Surgical History: Past Surgical History: No date: APPENDECTOMY 10/09/2024: CARDIAC CATHETERIZATION; N/A Comment: Performed by Bob Watson MD at [facility] Cardiac Cath/EP Lab 09/15/2021: FISTULAGRAM (HISTORICAL); Left Comment: LEFT UPPER ARM No date: HX AV FISTULA CREATION 08/07/2022: IR FISTULAGRAM Comment: IR FISTULAGRAM 08/07/2022 [facility] IR IMAGING No date: TONSILLECTOMY (HISTORICAL) Social [...] 10:45 AM Equipment Requests: Additional Equipment Requests [id number] History of Present illness Narrative* Jr Shah MD - 08/28/2024 3:15 PM EST Images from the original note were not included. [facility] CARDIOLOGY - [address] [facility] [address] Dept: [phone] Dept Visit type: Established : 1965 Reason [...] months (around 02/26/2025) for [facility] f/u in [place]. Subjective Afib after admission 07/2023. ESRD on [...] theother hand, a mechanical valve with termite treater OAC carries its own risks with a patient who gets dialysis. Has not followed up in a year. Today: HD on T Sat. He is oliguric. Afib Sxs: Has [...] none/quit. Pt would like to f/u in [place]. Was concerned about location and level of [...] History: Diagnosis Date Acute renal failure (ARF) ([facility]) 10/19/2019 Anemia 12/30/2021 Calcification of abdominal aorta ([facility]) 10/08/202309/[address] abd Diverticulosis 10/08/2023 ESRD on hemodialysis [facility] ([facility]) 10/26/2019 Hemodialysis patient ([facility] ([facility]) HTN (hypertension) 12/01/2022 Hypertension IgA nephropathy IgA nephropathy determined by biopsy of kidney 10/26/2019 Missed vaccination due to patient refusal 10/08/2023 Has a number of non-scientific based beliefs which interfere with his understanding and acceptance of the medical benefit of vaccination. Nonrheumatic aortic valve stenosis 10/08/2023 Paroxysmal A-fib ([facility]) ([facility]) 08/18/2023 Tobacco abuse 10/08/2023 Social History [...] medical care for thiscondition(s). [facility] Evaluation + Plan note* Assessment & Plan Note - Jr Shah MD - 08/28/2024 1:07 PM EST Associated Problem(s): Alcohol use disorder in remission Says he is a "functioning alcoholic". Stopping drinking in 2019. -Recommend stay quit due to addiction and risk of bleeding. [facility] [id number] Evaluation + Plan note* Assessment & Plan Note - Jr Shah MD - 08/28/2024 1:07 PM ESTAssociated Problem(s): Tobacco abuse 1 ppd. Recommend complete cessation. -Recommend CT lung cancer screening. [facility] HospitalLfnpfs14-12-3910 Miscellaneous Notes* Assessment & Plan Note - [...] PM EST Associated Problem(s): Paroxysmal A-fib (CMS/HCC) ([facility]) Paroxysmal. Infrequent episodes that he feels, [...] ablation, watchman device, etc. documented in this [facility]12-02[facility] Evaluation + Plan note* Assessment & [...] which will need to be carefully considered. [facility] [id number] Evaluation + Plan note* Assessment & Plan Note - Jr Shah MD - 08/28/2024 1:01 PM ESTAssociated Problem(s): Paroxysmal A-fib (CMS/HCC) ([facility]) Paroxysmal. Infrequent episodes that he feels, [...] see EP, discuss ablation, watchman device, etc. [facility] [id number] History of Present illness Narrative* Alan Barroso RN - 05/10/2024 2:38 PM EDT Dialysis center status inquiry form received from [facility]. Form completed and faxed back to ELIA Marin at [phone]. Patient was called 04/12/2024 but voicemail was full, letter was sent to please call the office at [phone] to complete intake. Referral was closed. Please have patient call the office to complete intake. JHONY Meier RN May 10, 2024 2:41 PM [facility] Telephone encounter Note * Telephone Encounter - Lanie Luis - 04/12/2024 11:49 AM EDT I called patient to start the kidney referral intake process. Voicemail is full, sent a letter out. Lanie [facility]07-17-2024 Miscellaneous Notes* Telephone Encounter - Lanie Luis - 04/12/2024 11:49 AM EDT I called patient to start the kidney referral intake process. Voicemail is full, sent a letter out. Lanie [facility]05-[facility]-2024 Telephone encounter Note * Telephone Encounter - Tracie Chin RN - 02/14/2024 10:23 AM EDT Called LM with pt with central scheduling number. Advised to call to schedule echo. [facility] HospitalWadosm40-04-7945 Miscellaneous Notes* Telephone Encounter - Tracie Chin RN - 02/14/2024 10:23 AM EDT Called LM with pt with central scheduling number. Advised to call to schedule echo. * Telephone Encounter - Dorcas Pabon - 02/12/2024 10:28 AM EDT Unable to contact patient - called and lvm and sent mychart message for echo Deferred documented [facility] this [facility]05-[facility] Telephone encounter Note* Telephone Encounter - Dorcas Pabon - 02/12/2024 10:28 AM EDT Unable to contact patient - called and lvm and sent mychart message for echo Deferred [facility] [id number] Miscellaneous Notes* Telephone Encounter - Dorcas Pabon - 02/12/2024 10:28 AM EDT Unable to contact patient - called and lvm and sent mychart message for echo Deferred documented in this [facility]05-18-[facility]24 Telephone encounter Note* Telephone Encounter - Dorcas Pabon - 02/12/2024 10:23 AM EDT Unable to contact patient to schedule CT lung screening - called and sent Bootstrap Softwarehart message Deferred [facility] HospitalKdxrnd85-85-6666 Miscellaneous Notes* Telephone Encounter - Dorcas Pabon - 02/12/2024 10:23 AM EDT Unable to contact patient to schedule CT lung screening - called and sent Bootstrap Softwarehart message Deferred documented in this encounterSGalion HospitalQhtvqj03-01-5564 Evaluation + Plan note* Assessment & Plan Note - DENIA Dumont CNP - 11/12/2023 4:50 PM EST Associated Problem(s): Tobacco abuse 1 ppd. Recommend complete cessation. Consider CT lung cancer screening. [facility] HospitalVsgiqy63-47-6931 Miscellaneous Notes* Assessment & Plan Note - [...] A-fib (CMS/HCC) (HCC) Paroxysmal. Refer to Dr. Shha's notes re: triggers. Pt thinks the etiology [...] than just dialysis days. [facility] this [facility]-16[facility] Evaluation + Plan note* Assessment & Plan Note - DENIA Dumont CNP - 11/12/2023 4:48 PM EST Associated Problem(s): Calcification of abdominal aorta (HCC) Sep 2023, by chart review this is the only ASCVD finding. Utility of lipid- lowering agent controversial in ESRD and does not appear to be improved with moderate intensity statins. -expectant mgt [facility] [id number] Evaluation + Plan note* Assessment & Plan Note - DENIA Dumont CNP - 11/12/2023 4:48 PM ESTAssociated Problem(s): HTN (hypertension) Goal BP < 130/80 mmHg. BP today in office borderline. -continues on toprol XL -mgt per PCP and renal [facility] [id number] Evaluation + Plan note* Assessment & Plan [...] cardiac intervention that he is open to. [facility] [id number] Evaluation + Plan note* Assessment & Plan [...] dose overall, rather than just dialysis days. [facility] [id number] History of Present illness Narrative* DENIA Dumont CNP - 11/12/2023 1:30 PM EST Images from the original note were not included. [facility] MEDICAL [facility] CARDIOLOGY [address] [place] [address] [address] [facility] [address] Dept: [phone] Dept Loc: [phone] Visit type: Established : 1965 Reason for [...] he is open to. 2. Paroxysmal A-fib ([facility]) ([facility]) Assessment & Plan: Paroxysmal. Refer to [...] lung cancer screening. 6. ESRD on hemodialysis ([facility]) ([facility]) Follow up in about 6 months (around [...] 10/19/2019 Anemia 12/30/2021 Calcification of abdominal aorta ([facility]) 10/08/202309/[address] abd Diverticulosis 10/08/2023 ESRD on hemodialysis [place] ([facility]) 10/26/2019 Hemodialysis patient [place] ([facility]) HTN (hypertension) 12/01/2022 Hypertension IgA nephropathy IgA nephropathy determined by biopsy of kidney 10/26/2019 Missed vaccination due to patient refusal 10/08/2023 Has a number of non-scientific based beliefs which interfere with his understanding and acceptance of the medical benefit of vaccination. Nonrheumatic aortic valve stenosis 10/08/2023 Paroxysmal A-fib ([facility] ([facility]) 08/18/2023 Tobacco abuse 10/08/2023 Social History [...] PM DENIA Dumont CNP documented in this encounterSGalion HospitalOacsmy66-11-2446 Telephone encounter Note* Telephone Encounter - Sydni Rodrigues - 11/01/2023 9:41 AM EST Called pt lmom for a return call to set up appt [facility] HospitalZouxlz83-92-4621 Miscellaneous Notes* Telephone Encounter - Sydni Rodrigues [...] 10/14/2023 7:58 AM EST Preferred contact number: [phone] Reason for Visit: Jun called in to cancel his appt this morning. He woke up and is very sick. Please contact him to reschedule. Urgency of Appointment: office visit [facility] this [facility]01[facility] Telephone encounter Note* Telephone Encounter - Sydni Rodrigues - 10/18/2023 2:34 PM EST Called pt LMOM for a return call to set up appt [facility] HospitalVsqqrv14-75-4914 Telephone encounter Note* Telephone Encounter - Sydni Rodrigues - 10/14/2023 8:56 AM EST Called pt LMOM for a return call to r/s appt [facility] HospitalXctmiy88-33-7353 Telephone encounter Note* Telephone Encounter - Regino Ortiz - 10/14/2023 7:58 AM EST Preferred contact number: [phone] Reason for Visit: Jun called in to cancel his appt this morning. He woke up and is very sick. Please contact him to reschedule. Urgency of Appointment: office visit [facility] HospitalXyprik70-88-1293 Telephone encounter Note* Telephone Encounter - Darya Payne - 08/23/2023 1:47 PM EST 2nd attempt to schedule, no answer, left message. [facility] HospitalBjgoyf97-92-1127 Miscellaneous Notes* Telephone Encounter - Darya Payne - 08/23/2023 1:47 PM EST 2nd attempt to schedule, no answer, left message. * Telephone Encounter - Darya Payne - 08/18/2023 2:13 PM EST Left message requesting a call back from the patient to schedule appointment. * Telephone Encounter - Daryabernadette Payne - 08/18/2023 2:12 PM EST ----- Message from DENIA Dumont CNP sent at 08/18/2023 8:30 AM EST ----- Patient discharged from [facility]. Please assist with s/p hosp "[facility]," okay within the next ~week. Thanks! documented in this encounterSGalion HospitalWkvzfk31-25-8054 Telephone encounter Note* Telephone Encounter - Darya Payne - 08/18/2023 2:13 PM EST Left message requesting a call back from the patient to schedule appointment. [facility] HospitalZqcqjr49-96-2809 Telephone encounter Note* Telephone Encounter - Darya Payne - 08/18/2023 2:12 PM EST ----- Message from DENIA Dumont CNP sent at 08/18/2023 8:30 AM EST ----- Patient discharged from [facility]. Please assist with s/p hosp "[facility]," okay within the next ~week. Thanks! [facility] HospitalTwpvla41-89-0370 Emergency department Note* Mary Ann Meraz RN - 08/17/2023 3:11 PM EST Patient education given in regard to medications, as well as following-up with PCP. Patient given [employer] information packet, understanding well. Mary Ann Meraz RN 08/17/23 1511 [facility]CareZpsnws73-52-2564 Emergency department Note* Mary Ann Meraz RN - 08/17/2023 3:11 PM EST Patient education given in regard to medications, as well as following-up with PCP. Patient given [employer] information packet, understanding well. Mary Ann Meraz RN 08/17/23 1511 * Dangelo Horne DO - 08/16/2023 6:16 PM EST Emergency Department Encounter [facility] ED Patient: Jun Snyder : 1965 Date [...] 08/16/2023 6:16 PM EST Emergency Department Encounter [facility] ED Patient: Jun Snyder : 1965 Date [...] gross facial drooping. No obvious neurologic deficits. 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 Moves all 4 extremities spontaneously. [...] 364 ms QTC Interval 491 ms P [place] degrees QRS [place] 61 degrees T Wave [place] -20 degrees MS Interval ms Radiographs: XR chest 1 view Final Result 1. Cardiomegaly. 2. No other acute findings. Report Dictated on Electronically Signed By: Justo Milan MD Electronically Signed Date/Time: 08/16/2023 6:42 PM EST : EKG: All EKG's areinterpreted by the Emergency Department Physician in the absence of a potato chip processing supervisor. see their note for interpretation of EKG. [...] for new onset A-fib. Patient excepted to [facility]. Final Diagnosis: 1. New onset a-fib (CMS/HCC) (HCC) Medications - No data to display Diagnoses as of 08/16/232129 New onset a-fib (CMS/HCC) (HCC) CRITICAL CARE TIME CONSULTS: None PROCEDURES: Unless otherwise noted below, none Procedures DISPOSITION/PLAN Admit 08/16/2023 08:09:48 PM PATIENT REFERRED TO: No follow-up provider specified. DISCHARGE MEDICATIONS: New Prescriptions No medications on file @[facility]([id number]:LAST:1)@ (Please note: Portions of this note were completed with a voice recognition program. Efforts were made to edit the dictations but occasionally words and phrases are mis-transcribed.) Form [id number] Sha Granados PA-C Acute Care [facility] Sha Granados PA-C 08/16/232129 documented in this [place] [address]-21-2023 Hospital Discharge instructions* Discharge Instr - Other Orders* DENIA Lorenzo CNP - 08/17/2023 3:02 PM EST Please discontinue Labetalol and Caduet; see discharge medication list Next dialysis session is 08/18/23 as previously instructed * Attachments The following attachments cannot be sent through Care Everywhere. * Atrial Fibrillation (Indian) * Going Home on Blood Thinners (Indian) * Apixaban, ADULT (Indian) [facility] this [facility] History of Present illness Narrative* DENIA [...] Past Medical History: Diagnosis Date Hemodialysis patient ([facility]) (HCC) Hypertension IgA nephropathy LABS: CBC: [...] Information Primary Emergency Contact: Alexx Snyder [address]: [address] [place] [address] Mobile Relation: Child DENIA Lorenzo CNP Division of Hospitalist Medicine Inpatient Medical Services/[facility] Comment: Please note this report has been [...] reflects time of documentation. documented in this [facility]11-21-2023 Consult note* Rj Villela MD - 08/17/2023 10:16 AM ESTAssociated Order(s): IP CONSULT TO CARDIOLOGY [facility] CARDIOLOGY CONSULTATION Patient Name: Jun [...] to left heart disease. Rj Villela M.D., FaMry JaneC. Movement Therapist Chief, Division of Cardiac Imaging Clinical Lens Molding Equipment Operator, [facility] Data Collection Cardiac Testin08/16/23 [...] a past medical history of Hemodialysis patient ([facility]) (HCC), Hypertension, and IgA nephropathy. He [...] alert. Psychiatric: Mood and Affect: Mood normal. [facility] Work Phone: 1(618) 292-763811-21-2023 Consult note* Rj Villela MD - 08/17/2023 10:16 AM ESTAssociated Order(s): IP CONSULT TO CARDIOLOGY [facility] CARDIOLOGY CONSULTATION Patient Name: Jun [...] left heart disease. Rj Villela M.D., F.A.C.C. Movement Therapist Chief, Division of Cardiac Imaging Clinical Lens Molding Equipment Operator, [facility] Data Collection Cardiac Testin08/16/23 [...] a past medical history of Hemodialysis patient ([facility]) (HCC), Hypertension, and IgA nephropathy. He [...] and Affect: Mood normal. documented in this [facility] History and physical note* Earlene Irving MD - 08/16/2023 8:38 PM EST Images from the original note were not included. History and Physical [facility] Jun Snyder : 1965 AGE 57 y.o. [...] WedAug 16, 2023 8:09 PM (Active) Physician Therapeutic Specialist: Sha Granados PA-C, starting on WedAug [...] him When he was getting dialysis his dewatering filtering supervisor detected irregular rhythm suspected A-fib and referred [...] Past Medical History: Diagnosis Date Hemodialysis patient ([facility]/HCC) (HCC) Hypertension IgA nephropathy Past Surgical History: [...] 08/16/2023 364 QTC Interval 08/16/2023 491 QRS [place] 08/16/2023 61 T Wave [place] 08/16/2023 -20 SODIUM 08/16/2023 133 (L) POTASSIUM [...] QT Interval 364 QTC Interval 491 P [place] QRS [place] 61 T Wave [place] -20 MS Interval Impression ATRIAL FIBRILLATION, V-RATE 88-139 INCOMPLETE [...] monitor him on telemetry asked cardiology to [facility] we will additionally request echocardiogram. He is not experiencing chest pain but he is a current smoker and I do not see a recent cardiac work-up in the computer EKG on admission did confirm atrial fibrillation but he is currently in sinus rhythm Anticoagulation yet to be determined His current [id number] score would be 1 based upon history [...] to due risk bleed/procedure 08/16/2023 Jun Snyder [id number] Any scheduled follow up appointments No future appointments. Extended Emergency Contact Information Primary Emergency Contact: Alexx Snyder [address]: [address] [place] [address] [place] Relation: Child Portions of this note may be electronically transcribed. Please forward a copy of this H&P to the primary care physician. [facility] [id number] History and physical note* Earlene Irving MD - 08/16/2023 8:38 PM EST Images from the original note were not included. History and Physical [facility] Jun Snyder : 1965 AGE 57 y.o. [...] WedAug 16, 2023 8:09 PM (Active) Physician Therapeutic Specialist: Sha Granados PA-C, starting on WedAug [...] him When he was getting dialysis his dewatering filtering supervisor detected irregular rhythm suspected A-fib and referred [...] Past Medical History: Diagnosis Date Hemodialysis patient ([facility]) (HCC) Hypertension IgA nephropathy Past Surgical History: Procedure Laterality Date APPENDECTOMY FISTULAGRAM (HISTORICAL) Left 09/15/2021 LEFT UPPER ARM HX AV FISTULA CREATION IR FISTULAGRAM 08/07/2022 IR FISTULAGRAM 08/07/2022 [facility] IR IMAGING TONSILLECTOMY (HISTORICAL) Allergies Allergen Reactions [...] 08/16/2023 364 QTC Interval 08/16/2023 491 QRS [place] 08/16/2023 61 T Wave [place] 08/16/2023 -20 SODIUM 08/16/2023 133 (L) POTASSIUM [...] QT Interval 364 QTC Interval 491 P [place] QRS [place] 61 T Wave [place] -20 MS Interval Impression ATRIAL FIBRILLATION, V-RATE 88-139 INCOMPLETE [...] monitor him on telemetry asked cardiology to [facility] we will additionally request echocardiogram. He is not experiencing chest pain but he is a current smoker and I do not see a recent cardiac work-up in the computer EKG on admission did confirm atrial fibrillation but he is currently in sinus rhythm Anticoagulation yet to be determined His current [id number] score would be 1 based upon history [...] to due risk bleed/procedure 08/16/2023 Jun Snyder [id number] Any scheduled follow up appointments No future appointments. Extended Emergency Contact Information Primary Emergency Contact: Alexx Snyder [address]: [address] [place] [address] [place] Relation: Child Portions of this note may be electronically transcribed. Please forward a copy of this H&P to the primary care physician. documented in this [facility]23 Physician Emergency department Note* Dangelo Horne DO - 08/16/2023 6:16 PM EST Emergency Department Encounter [facility] ED Patient: Jun Snyder : 1965 Date [...] Horne DO 08/16/231922 Dangelo Horne DO 08/16/231957 [facility] Work Phone: [phone] 204-200311-20-2023 Physician Emergency department Note* Sha Granados PA-C - 08/16/2023 6:16 PM EST Emergency Department Encounter [facility] ED Patient: Jun Snyder : 1965 Date of Evaluation: 08/16/2023 ED [facility] Provider: DANIELLE Donovanare was supervised by Dr. Horne who independently [...] Past Medical History: Diagnosis Date Hemodialysis patient ([facility]CC) (HCC) Hypertension Past Surgical History: Procedure Laterality Date APPENDECTOMY FISTULAGRAM (HISTORICAL) Left 09/15/2021 LEFT UPPER ARM HX AV FISTULA CREATION IR FISTULAGRAM 08/07/2022 IR FISTULAGRAM 08/07/2022 [facility] IR IMAGING TONSILLECTOMY (HISTORICAL) Social History Socioeconomic [...] gross facial drooping. No obvious neurologic deficits. 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 Moves all 4 extremities spontaneously. [...] 364 ms QTC Interval 491 ms P [place] degrees QRS [place] 61 degrees T Wave [place] -20 degrees MS Interval ms Radiographs: XR chest 1 view Final Result 1. Cardiomegaly. 2. No other acute findings. Report Dictated on Electronically Signed By: Justo Milan MD Electronically Signed Date/Time: 08/16/2023 6:42 PM EST : EKG: All EKG's areinterpreted by the Emergency Department Physician in the absence of a potato chip processing supervisor. see their note for interpretation of EKG. [...] for new onset A-fib. Patient excepted to [facility]. Final Diagnosis: 1. New onset a-fib (CMS/HCC) (HCC) Medications - No data to display Diagnoses as of 08/16/232129 New onset a-fib (CMS/HCC) ([facility]) CRITICAL CARE TIME CONSULTS: None PROCEDURES: Unless otherwise noted below, none Procedures DISPOSITION/PLAN Admit 08/16/2023 08:09:48 PM PATIENT REFERRED TO: No follow-up provider specified. DISCHARGE MEDICATIONS: New Prescriptions No medications on file @[facility]([id number]:LAST:1)@ (Please note: Portions of this note were completed with a voice recognition program. Efforts were made to edit the dictations but occasionally words and phrases are mis-transcribed.) Form [id number] Sha Granados PA-C Acute Care [facility] Sha Granados PA-C 08/16/232129 [facility]08-05[facility]2023 Hospital Discharge instructions* Discharge Instructions* Jese [...] petroleum jelly on it. documented in this [facility] Emergency department Note* Jese Frank MD [...] ESRD (end stage renal disease) on dialysis ([facility]): complicated acute illness or injury Skin [...] ESRD (end stage renal disease) on dialysis ([facility]) * No order type specified * [...] ESRD (end stage renal disease) on dialysis ([facility]) DISPOSITION/PLAN DISPOSITION Discharge 05/01/2023 08:15:56 PM PATIENT REFERRED TO: Daryn Loomis MD [address] [facility] [address] In 1 week [facility] [address] [place] [address] [address] [address] I prescribed: New Prescriptions EMOLLIENT [...] that bleeds occasionally. Patient was seen in [facility] a month ago for the same problem. Bed locked and low position, call light within reach. Patient has no further needs. documented in this [facility]08[facility]05[facility]23 Emergency department Triage note* Sony Dacosta RN - 05/01/2023 7:35 PM EDT Patient to ER room 6 without difficulty. Patient is a dialysis patient Wednesday and Wednesday. Patient had dialysis today . Has small sore close to dialysis site that bleeds occasionally. Patient was seen in [place] a month ago for the same problem. Bed locked and low position, call light within reach. Patient has no further needs. [id number] Emergency department Note* Jese Frank MD [...] ESRD (end stage renal disease) on dialysis ([facility]) * No order type specified * [...] ESRD (end stage renal disease) on dialysis ([facility]) DISPOSITION/PLAN DISPOSITION Discharge 05/01/2023 08:15:56 PM PATIENT REFERRED TO: Daryn Loomis MD [facility] [address] In 1 week [facility] [address] [place] [address] [address]ound [address] [address] I prescribed: New Prescriptions EMOLLIENT [...] MD (electronically signed) Jese Frank MD 05/01/232038 [id number] Miscellaneous Notes* Telephone Encounter - Karly Fortune Pss - 01/01/2022 2:36 PM EDT I scheduled him w/ Dr. reid on WednesdayFebruary 16 and left him a detailed vm that I did. This is all have at [facility] we are in to March and jair needs a Wednesday or Wednesday bc of dialysis I am sorry, I don't have solution or advise for hospital schedule issues. Next best thing is to discuss with Naomi. May be when Dr. King or Marti come in for special cases to [facility], can this case beincluded at that time. Or if you cancel [facility] schedule and make room for me to come to [facility] any day I can get this done. Thanks! * Telephone Encounter - Karly Fortune Pss - 12/30/2021 10:36 AM EDT Antonio I had him scheduled for his colon w/ you for next WednesdayJanuary 05 but Peggy ramirez said he has to be done at [facility]. I have no openings at [facility] and I don't know what to do Can you please let me know how to proceed. Thank you Eryn AMELIE I NEED A NEW COLON ORDER FOR [facility] Miscellaneous Notes* Telephone Encounter - Karly Kumar - 12/30/2021 9:33 AM EDT Antonio Painter saw a patient the other day and he ordered him a colon for blood loss anemia I scheduled him for [place] but his hgb is 6 so Charo wants him at [facility] . He is also on dialysisand could only do a Wednesday. All docs are booked until March You had a cancellation for next . Can I please put him w/ you? Thank you Eryn documented [facility]04[facility]-2022 Miscellaneous Notes* Telephone Encounter - Karly Fortune Pss - 12/29/2021 4:18 PM EDT Antonio I know this patient saw Inocencio the other day as a new patient. I have him scheduled her and his hgb is 6 Could you please do an order for me? I have to get him on tayo Thanks Eryn documented in this [facility]03-31-2022 History of Present illness Narrative* Rudy [...] for internal providers or letter via the [employer] Postal Service for external providers. HPI: Jun [...] CKD (chronic kidney disease) Dialysis T//Sat @ [facility], Home hemodialysis since 09/2019 Diverticulosis [...] follow-ups on file. Rudy Painter MD DATE: 03/31/22 TIME: 3:56 PM documented in this [facility]01-31-2020 History of Present illness Narrative* Miracle Jaramillo RN - 10/27/2019 9:00 PM EST Patient left via wheelchair with family member. Pt left with all of documented belongings. * Blane Lei RN - 10/27/2019 2:30 PM EST Patient Name: Glenn Snyder Patient : 1965 Acct: [id number] Date of Admission: 10/19/2019 Room/Bed: [address] [place] [address] Code Status: Full Code Allergies: Allergies Allergen [...] (Bicarb): 35 Na+ Modeling: Not Applicable Dialyzer: [id number] Dialysate Temperature (C): 36 Blood Flow Rate [...] - Before each treatment: Dialysis Machine No.: [id number] Machine No.: [id number] Dialyzer Lot No.: [id number] RO Machine Log Sheet Completed: Yes Machine Alarm Self Test: Completed;Passed (10/27/19 141) Machine Autotest: Completed, Passed Air Foam Detector: Tested, Proper Function, pH Reading Extracorporeal Circuit Tested for Integrity: Yes Machine Conductivity: 13.9 Manual Conductivity: 13.7 Machine Ph: 7 Manual Ph: 7 Bleach Test (Neg): Yes Bath Temperature: 96.8 F (36 C) Tubing Lot#: [id number] Conductivity Meter Serial #: [id number] All Connections Secure?: Yes Venous Parameters Set?: Yes Arterial Parameters Set?: Yes Saline Line Double Clamped?: Yes Air Foam Detector Engaged?: Yes Machine Functioning Alarm Free? Yes Prime Given: 200ml Chlorine Testing - Before each treatment and every 4 hours: Treatment Treatment Number: 5 Time On: 1418 Time Off: 1817 Treatment Goal: 2500 Weight: 188 lb 11.4 oz (85.6 kg) (10/27/19 1410) 1st check: less than 0.1 ppm at: [...] Pedraza MD - 10/27/2019 11:26 AM EST [facility] Progress Note [...] never had kidney Bx and never saw dewatering filtering supervisor before BLOSSOM might be from CKD progression [...] . Pt is likely ESRD. Pt on [facility] HD schedule. Last HD session 10/25 Next HD session today Pt has HD spot at [facility]. 2- Hyperkalemia: resolved with HD 3-high anion gap acidosis likely from CKD and BLOSSOM Resolved with HD 4- Hyperphosphatemia: Continue Phosphorus binder 5- HTN: Improved with HD. Continue same BP meds Monitor BP Ok to d/c patient from nephro stand point Will continue to follow Please call if any question at [phone] JEANA PEDRAZA MD 10/27/2019 11:26 AM * Jeana Pedraza MD - 10/26/2019 4:25 PM EST [facility] Progress Note SUBJECTIVE: Glenn Snyder [...] never had kidney Bx and never saw dewatering filtering supervisor before [place] might be from CKD progression [...] follow Please call if any question at [phone] JEANA PEDRAZA MD 10/26/2019 4:25 PM * Kimber Bajwa RN - 10/26/2019 10:46 AM EST Patient returned from US renal biopsy. VSS, see record. Ines is dry and intact to right flank area. Patient instructed on need for bedrest until 12:45. * Darell Sanches DO - 10/26/2019 8:19 AM EST Hospitalist Progress Note 10/26/2019 8:19 AM [phone]: Please page me ([phone]) for patient care issues. [phone]: Please page [facility] night Hospitalist for any issues. [...] lab Plan -daily weights, I&Os, dialysis per dewatering filtering supervisor -renal biopsy and dialysis cath pending, dewatering filtering supervisor following -am labs, replace lytes prn -increase activity -DVT prophylaxis: [] Lovenox [x] Heparin [] SCDs [x] Encourage ambulation [] Already on Anticoagulation Advance Directive: Full Code Discharge planning: Awaiting dialysis cath and renal biopsy. Can be discharge once outpatient dialysis arrangements have been made Darell Sanches DO Division of Hospitalist Medicine Inpatient Medical Services PAGER: [phone] * Ivett Cope RN - 10/25/2019 4:23 [...] and discharge needs Received a call from RenéSim regarding pt dialysis chair spot. Was informed [...] 5. Fluid Accumulation-No significant fluid accumulation, 6. Professional Athlete Strength-Normal Nutrition Risk Level: High Nutrient Needs: Estimated Daily Total Kcal: 3817-5408 Estimated Daily Protein (g): 60-90 Estimated Daily Total Fluid (ml/day): per md Nutrition Diagnosis: Problem: Altered nutrition-related lab values, Predicted suboptimal energy intake, Increased nutrient needs Etiology: related to Renal dysfunction ? Signs and symptoms: as evidenced by Known losses from dialysis, Weight loss, Lab values Objective Information: Nutrition-Focused Physical Findings: appetite improved, no edema, bun 39 , creat 9.71, wbc11.3mnxzx4.3,on renvela tid- NO DRY WT EST. off [...] kg)(summer 2018) % Weight Change: , na [place] Body Wt: 166 lb (75.3 kg), % [place] Body 121 Adjusted Body Wt: , body [...] EST Hospitalist Progress Note 10/25/2019 5:02 PM [phone]: Please page me ([phone]) for patient care issues. [phone]: Please page [facility] night Hospitalist for any [...] lab Plan -daily weights, I&Os, dialysis per dewatering filtering supervisor -renal biopsy and dialysis cath pending, dewatering filtering supervisor following -am labs, replace lytes prn -increase activity -DVT prophylaxis: [] Lovenox [x] Heparin [] SCDs [x] Encourage ambulation [] Already on Anticoagulation Advance Directive: Full Code Discharge planning: awaiting dialysis cath and renal biopsy Darell Sanches DO Division of Hospitalist Medicine Inpatient Medical Services PAGER: [phone] * Ramon Mei RN - 10/25/2019 11:46 AM EST Patient Name: Glenn Snyder Patient : 1965 Acct: [id number] Date of Admission: 10/19/2019 Room/Bed: [address] [place] [address] Code Status: Full Code Allergies: Allergies Allergen [...] (Bicarb): 35 Na+ Modeling: Not Applicable Dialyzer: [id number] Dialysate Temperature (C): 36 Blood Flow Rate [...] - Before each treatment: Dialysis Machine No.: [id number] RO Machine No.: [id number] Dialyzer Lot No.: [id number] RO Machine Log Sheet Completed: Yes Machine Alarm Self Test: Completed;Passed (10/25/19 1120) Machine Autotest: Completed, Passed Air Foam Detector: Tested, Proper Function, pH Reading Extracorporeal Circuit Tested for Integrity: Yes Machine Conductivity: 14 Manual Conductivity: 14.1 Machine Ph: 7 Manual Ph: 7 Bleach Test (Neg): Yes Bath Temperature: 96.8 F (36 C) Tubing Lot#: [id number] Conductivity Meter Serial #: [id number] All Connections Secure?: Yes Venous Parameters Set?: Yes Arterial Parameters Set?: Yes Saline Line Double Clamped?: Yes Air Foam Detector Engaged?: Yes Machine Functioning Alarm Free? Yes Prime Given: 200ml Chlorine Testing - Before each treatment and every 4 hours: Treatment Treatment Number: 4 Time On: 4 Time Off: 152 Treatment Goal: 2500 Weight: 188 lb 12.8 [...] Evaluate (10/25/19 1245) Provider Name: Keila (10/25/19 1245) Provider Notification: Physician (10/25/19 1245) Method of Communication: Call (10/25/19 1245) Response: No new orders (10/25/19 124) Notification [...] Pedraza MD - 10/25/2019 7:58 AM EST [facility] Progress Note SUBJECTIVE: Glenn Snyder [...] never had kidney Bx and never saw dewatering filtering supervisor before [place] might be from CKD progression [...] follow Please call if any question at [phone] JEANA PEDRAZA MD 10/25/2019 7:58 AM * Ellie Mireles RD, LD - 10/24/2019 3:43 PM EST Patient to be discharged today . Provided diet education for renal diet- 80- 90 gm pro, 2000 calorie, 2 gram potassium, [address] contact number for questions., concerns . Will follow upif not discharged. * Darell Sanches, DO - 10/24/2019 11:38 AM EST Hospitalist Progress Note 10/24/2019 11:38 AM [phone]: Please page me ([phone]) for patient care issues. [phone]: Please page [facility] night Hospitalist for any [...] lab Plan -daily weights, I&Os, dialysis per dewatering filtering supervisor -renal biopsy and dialysis cath pending, dewatering filtering supervisor following -am labs, replace lytes prn -increase activity -DVT prophylaxis: [] Lovenox [x] Heparin [] SCDs [x] Encourage ambulation [] Already on Anticoagulation Advance Directive: Full Code Discharge planning: ok to discharge today pending renal biopsy and dialysis cath placement Darell Sanches DO Division of Hospitalist Medicine Inpatient Medical Services PAGER: [phone] * Ivett Cope RN - 10/24/2019 10:48 AM EST Microbiology called, pt has 3x blood cultures drawn on 10/19. One came back with Gram positive rods.[employer] message sent to [facility] Dr Sanches regarding results * Jeana Pedraza MD - 10/24/2019 9:15 AM EST [facility] Progress Note SUBJECTIVE: Glenn Snyder [...] never had kidney Bx and never saw dewatering filtering supervisor before [place]OSS[place] might be from CKD progression [...] follow Please call if any question at [phone] JEANA PEDRAZA MD 10/24/2019 9:15 AM * Radha Foreman RN - 10/23/2019 7:21 PM EST Patient Name: Glenn Snyder Patient : 1965 Acct: [id number] Date of Admission: 10/19/2019 Room/Bed: [facility] Code Status: Full Code Allergies: [...] HBsAb: Date Drawn: HBsAb not drawn not 2019 Results: Unknown Order Dialysis Bath K+ (Potassium): 2 Ca+ (Calcium): 2.5 Na+ (Sodium): 138 HCO3 (Bicarb): 35 Na+ Modeling: Not Applicable Dialyzer: [id number] Dialysate Temperature (C): 35 Blood Flow Rate (BFR): 400 Dialysate Flow Rate (DFR): 800 Treatment Treatment Number: 4 Time On: 1749 Time Off: 2153 Treatment Goal: 1L Weight: [...] - Before each treatment: Dialysis Machine No.: [id number] RO Machine No.: [id number] Dialyzer Lot No.: [id number] RO Machine Log Sheet Completed: Yes Machine Alarm Self Test: Completed;Passed (01/27/20 1710) Machine Autotest: Completed, Passed Air Foam Detector: Tested, Proper Function, pH Reading Extracorporeal Circuit Tested for Integrity: Yes Machine Conductivity: 13.7 Manual Conductivity: 13.6 Machine Ph: 7 Manual Ph: 7 Bleach Test (Neg): Yes Bath Temperature: 95 F (35 C) Tubing Lot#: [id number] Conductivity Meter Serial #: [id number] All Connections Secure?: Yes Venous Parameters Set?: [...] minutes from secondary) Comment", Waited for RN screw supervisor for 2nd water check. Access Flows [...] ice chips. Family/ friends in room Yes 10/23/191929 400 ml/min 380 ml/hr 654 ml -140 [...] 800 Pt stable. Family in room. Yes 10/23/195 400 ml/min 370 ml/hr 1093 ml -150 [...] Patel MD - 10/23/2019 4:54 PM EST [facility] Progress Note SUBJECTIVE: Glenn Snyder [...] Diagnosis Date Noted Acute renal failure (ARF) ([facility]) 10/19/2019 ASSESSMENT/PLAN: 1. Renal failure, most likely chronic. Discussed with patient in detail. 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 Currently not working. 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 Apparently he was admitted at a hospital in [place] about 5 years ago and had cystoscopy [...] EST Hospitalist Progress Note 10/23/2019 5:02 PM [phone]: Please page me ([phone]) for patient care issues. [phone]: Please page [facility] night Hospitalist for any issues. [...] anemia Plan -daily weights, I&Os, dialysis per dewatering filtering supervisor -renal biopsy and temp dialysis cath pending, dewatering filtering supervisor to arrabge -am labs, replace lytes prn -increase activity -DVT prophylaxis: [] Lovenox [x] Heparin [] SCDs [x] Encourage ambulation [] Already on Anticoagulation Advance Directive: Full Code Discharge planning: likely discharge in next 24 hours Darell Sanches DO Division of Hospitalist Medicine Inpatient Medical Services PAGER: [phone] * Darell Sanches DO - 10/22/2019 2:17 PM EST Hospitalist Progress Note 10/22/2019 2:17 PM [phone]: Please page me ([phone]) for patient care issues. [phone]: Please page [facility] Hospitalist for any issues. Subjective: Admit Date: [...] anemia Plan -daily weights, I&Os, dialysis per dewatering filtering supervisor -discussed with patient and he is willing to have the renal bx done. Will notify dewatering filtering supervisor -am labs, replace lytes prn -increase activity -DVT prophylaxis: [] Lovenox [x] Heparin [] SCDs [x] Encourage ambulation [] Already on Anticoagulation Advance Directive: Full Code Discharge planning: likely discharge in next 1-2 days after renal biopsy Darell Sanches DO Division of Hospitalist Medicine Inpatient Medical Services PAGER: [phone] * Randolph Liz MD - 10/22/2019 12:46 PM EST [facility] [address] [place] [address] Progress Note Subjective: Patient seen [...] EST Hospitalist Progress Note 10/21/2019 10:35 PM [phone]: Please page me ([phone]) for patient care issues. [phone]: Please page [facility] night Hospitalist for any issues. [...] bolus, 20 mL, Intravenous, Once, Delon Jessica, RIPSAW GRADER - APPLICATION HELPER hydrALAZINE (APRESOLINE) injection 10 mg, 10 mg, [...] of Hospitalist Medicine Inpatient Medical Services PAGER: [phone] * Randolph Liz MD - 10/21/2019 1:44 PM EST [facility] [address] [place] [address] Progress Note Subjective: Patient seen [...] Name: Glenn Snyder Patient : 1965 Acct: [id number] Date of Admission: 10/19/2019 Room[facility]: [facility] Code Status: Full Code Allergies: No Known [...] HCO3 (Bicarb): 35 Na+ Modeling: NA Dialyzer: [id number] Dialysate Temperature (C): 36 Blood Flow Rate [...] Regular Unlabored None (Room air) Expiratory wheezes [place] Dry;Warm Distended;Rounded;Soft Audible Generalized 0 10/21/19 1300 0 3 Regular Unlabored None (Room air) Clear;Diminished [place] Dry;Warm Distended;Rounded;Soft Active Generalized 0 Labs Recent Labs 10/19/19 1529 10/20/19 0408 10/20/19 0529 10/20/19 1847 10/21/19 0532 WBC 8.3 9.0 -- -- 9.8 HGB 9.1* 6.6* 6.7* 9.0* 9.7* HCT 26.9* 19.3* 19.6* 25.2* 27.6* PLT 246 267 -- -- 299 Recent Labs 10/20/19 0408 10/20/19 1847 10/21/19 0532 NA 136 135 135 K 4.7 4.0 4.9 CL 95* 94* 94* CO2 24 26 25 BUN 123* 76* 83* CREATININE 13.53* 9.40* 11.16* GLUCOSE 102* 110* 103* IV Drips and Rate/Dose Safety - Before each treatment: Dialysis Machine No.: [id number] RO Machine No.: [id number] Dialyzer Lot No.: [id number] RO Machine Log Sheet Completed: Yes Machine Alarm Self Test: Completed;Passed (10/21/19 0940) Machine Autotest: Completed, Passed Air Foam Detector: Tested, Proper Function, pH Reading Extracorporeal Circuit Tested for Integrity: Yes Machine Conductivity: 13.7 Manual Conductivity: 13.8 Machine Ph: 7 Manual Ph: 7 Bleach Test (Neg): Yes Bath Temperature: 96.8 F (36 C) Tubing Lot#: [id number] Conductivity Meter Serial #: [id number] All Connections Secure?: Yes Venous Parameters Set?: [...] Name: Glenn Snyder Patient : 1965 Acct: [id number] Date of Admission: 10/19/2019 Room/Bed: 222/2225 Code Status: Full Code Allergies: No Known [...] (Bicarb): 35 Na+ Modeling: Not Applicable Dialyzer: [id number] Dialysate Temperature (C): 36 Blood Flow Rate [...] x3 Regular Unlabored None (Room air) Clear [place] Dry;Warm Good Soft Active None 0 10/20/19 [...] - Before each treatment: Dialysis Machine No.: [id number] RO Machine No.: [id number] Dialyzer Lot No.: [id number] RO Machine Log Sheet Completed: Yes Machine Alarm Self Test: Completed;Passed (10/20/19 1525) Machine Autotest: Completed, Passed Air Foam Detector: Tested, Proper Function, pH Reading Extracorporeal Circuit Tested for Integrity: Yes Machine Conductivity: 13.6 Manual Conductivity: 13.6 Machine Ph: 7 Manual Ph: 7 Bleach Test (Neg): Yes Bath Temperature: 96.8 F (36 C) Tubing Lot#: [id number] Conductivity Meter Serial #: [id number] All Connections Secure?: Yes Venous Parameters Set?: [...] Pedraza MD - 10/20/2019 2:42 PM EST [facility] Progress Note SUBJECTIVE: Glenn Snyder [...] never had kidney Bx and never saw dewatering filtering supervisor before [place] might be from CKD progression [...] follow Please call if any question at [phone] JEANA PEDRAZA MD 10/20/2019 2:43 PM * Dorcas Chin APRN - CNP - 10/20/2019 12:03 PM EST Patient transferred from ICU to [facility] service * Brett Encarnacion MD [...] []Injected [x]Non-Injected / Pinnae [x]Normal []Other/ Dentitian [][place] Teeth []Dentures Oral Mucosa [x][place] [x]Moist []Dry/ Oral ETT []Present [x]Absent Neck: [...] [x]Absent/ GUAN ([x]RUE [x]RLE [x]LUE [x]LLE) Neurologic: [place]HONO [place] []Yes [x]No Corneal reflexes []Present []Absent / [...] Ordering Physician MD ENCARNACION MATTHEW Accession Number [id number] CPT4 Codes 47276 () Reason For Exam line placement/vascath Report [...] 5. Fluid Accumulation-No significant fluid accumulation, 6. Professional Athlete Strength-Not measured Nutrition Risk Level: High Nutrient Needs: Estimated Daily Total Kcal: 7317-7620 Estimated Daily Protein (g): 60-90 Estimated Daily [...] Wt: (na) % Weight Change: , na [place] Body Wt: 166 lb (75.3 kg), % [place] Body 132 Adjusted Body Wt: , body [...] Monitor Bowel Function Contact Number: [phone] * Balne Lei, SWEETIE - 10/19/2019 1:47 PM EST Patient Name: Glenn Snyder Patient : 1965 Acct: [id number] Date of Admission: 10/19/2019 Room/Bed: [address] [place] [address] Code Status: No Order Allergies: No Known [...] (Bicarb): 40 Na+ Modeling: Not Applicable Dialyzer: [id number] Dialysate Temperature (C): 36 Blood Flow Rate [...] - Before each treatment: Dialysis Machine No.: [id number] RO Machine No.: [id number] Dialyzer Lot No.: [id number] RO Machine Log Sheet Completed: Yes Machine Alarm Self Test: Completed;Passed (10/19/19 1245) Machine Autotest: Completed, Passed Air Foam Detector: Proper Function, Tested, pH Reading Extracorporeal Circuit Tested for Integrity: Yes Machine Conductivity: 13.8 Manual Conductivity: 13.7 Machine Ph: 7 Manual Ph: 7 Bleach Test (Neg): Yes Bath Temperature: 96.8 F (36 C) Tubing Lot#: [id number] Conductivity Meter Serial #: [id number] All Connections Secure?: Yes Venous Parameters Set?: [...] Understanding documented in this encounterSUMMA Work Phone: [phone] Hospital course Narrative* Darell Sanches DO - [...] to presentation. Admitted to ICU, seen by dewatering filtering supervisor and HD initiated. Stabilized and transferred out [...] Medications: Glenn Snyder Home Medication Instructions JOSE M:[id number] Printed on:10/27/19 1125 Medication Information amLODIPine (NORVASC) 5 MG tablet Take 1 tablet by mouth daily metoprolol tartrate (LOPRESSOR) 25 MG tablet Take 0.5 tablets by mouth 2 times daily sevelamer (RENVELA) 800 MG tablet Take 2 tablets by mouth 3 times daily (with meals) Recommended Follow-up: dewatering filtering supervisor In 3 weeks post hospital fu appt Brenton Mckeon MD [address] [facility] [address] In 2 weeks post hospital fu appt Readmission Risk Risk of Unplanned Readmission: 15 Complexity of Follow up: ? Moderate Complexity: follow up within 7-14 calendar days (93831) ? Severe Complexity: follow up within 7 calendar days (15355) Follow up Testing, Pending results or Referrals [...] frame. Signed: Darell Sanches DO [facility] 10/27/2019, 11:23 AM documented in this encounterSUMMA Work Phone: [phone] Hospital Discharge instructions* Discharge Instr - Activity* [...] Bai RN - 10/24/2019 2:21 PM EST [facility] [phone] offer services including medical, dental, [facility], behavioral health and a reduced-rate pharmacy. Fees are based on current income and family size. Please refer to your handout for additional information and all location options. [address] [facility] [place] [phone] Wednesday 8 AM 6 PM Wednesday 8 AM 2 PM Hemodialysis will be Wednesday, Wednesday and Wednesday at [facility] located at [address] [place] [address] or [phone] Please arrive at 9:45 am * Additional [...] through Care Everywhere. * Kidney Biopsy: Post-op (Indian) [facility] Phone: Evaluation note* Diagnosis Acute [...] rectum and anus [facility] Diagnosis Other iron deficiency anemia- Primary Rectal bleeding Hemorrhage of rectum and anus [facility] Diagnosis Skin sore- Primary ESRD (end stage renal disease) on dialysis (HCC) End stage renal disease [facility] Diagnosis New onset a-fib (CMS/HCC) (HCC)- Primary Atrial fibrillation New onset a-fib (CMS/HCC) (HCC) Atrial fibrillation Atrial fibrillation, persistent (HCC) [facility] Diagnosis Nonrheumatic aortic valve stenosis- Primary Paroxysmal A-fib (CMS/HCC) (HCC) Primary hypertension Unspecified essential hypertension Calcification of abdominal aorta (HCC) Tobacco abuse Tobacco use disorder ESRD on hemodialysis (CMS/HCC) (HCC) [facility] Diagnosis Personal history of nicotine dependence- Primary Nicotine dependence, cigarettes, uncomplicated [facility] Diagnosis Paroxysmal A-fib (CMS/HCC) (HCC)- Primary [...] disorder in remission documented in this encounter [facility]* Diagnosis Paroxysmal A-fib [...] hemodialysis (CMS/HCC) (HCC) documented in this encounter [facility]* Diagnosis Paroxysmal A-fib [...] Anemia, unspecified type documented in this encounter [facility] note* Diagnosis Paroxysmal A-fib [...] of abdominal surgery documented in this encounter [facility]* Diagnosis Paroxysmal A-fib (CMS/HCC) (HCC)- [...] (HCC) S/P AVR documented in this encounter [facility]* Diagnosis Paroxysmal A-fib (CMS/HCC) (HCC)- [...] pulmonale present (HCC) documented in this encounter [facility]* Diagnosis Paroxysmal A-fib [...] disorder in remission documented in this encounter [facility]* Diagnosis Paroxysmal A-fib (CMS/HCC) (HCC)- [...] this encounter [facility]* Diagnosis Paroxysmal A-fib (CMS/HCC) (HCC)- [...] this encounter [facility]* Diagnosis Paroxysmal A-fib (CMS/HCC) (HCC)- [...] hypoxia (HCC) [J96.01] documented in this encounter [facility]* Diagnosis Paroxysmal A-fib (CMS/HCC) (HCC)- [...] (HCC) S/P AVR documented in this encounter [facility]* Diagnosis Paroxysmal A-fib (CMS/HCC) (HCC)- [...] Decubitus ulcer of sacral region, unstageable (HCC) nursing home (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 documented in this encounter [facility]* Diagnosis Paroxysmal A-fib (CMS/HCC) (HCC)- [...] Tracheostomy status Acute respiratory failure with hypoxia ([facility]) [J96.01] Leg DVT (deep venous thromboembolism), acute, left (HCC) Pulmonary embolism, unspecified chronicity, unspecified pulmonary embolism type, unspecified whether acute cor pulmonale present ([facility]) S/P AVR documented in this encounter [facility]* Diagnosis Paroxysmal A-fib (CMS/HCC) (HCC)- Primary Nonrheumatic aortic valve stenosis Primary hypertension Unspecified essential hypertension ESRD on hemodialysis (CMS/HCC) ([facility]) Calcification of abdominal aorta (HCC) Tobacco abuse Tobacco use disorder Nonrheumatic aortic valve stenosis- Primary Paroxysmal A-fib (CMS/HCC) (HCC) Primary hypertension Unspecified essential hypertension Calcification of abdominal aorta (HCC) Tobacco abuse Tobacco use disorder ESRD on hemodialysis (CMS/HCC) ([facility]) Paroxysmal A-fib (CMS/HCC) ([facility])- Primary Nonrheumatic aortic valve stenosis Tobacco abuse Tobacco use disorder Alcohol use disorder in remission 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 Tracheostomy status ESRD on hemodialysis (CMS/HCC) ([facility]) 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, 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) Sacral osteomyelitis (CMS/HCC) ([facility]) Leukocytosis, unspecified type documented in this encounter [facility]* Diagnosis Paroxysmal A-fib (CMS/HCC) (HCC)- Primary Nonrheumatic aortic valve stenosis Primary hypertension Unspecified essential hypertension ESRD on hemodialysis (CMS/HCC) ([facility]) Calcification of abdominal aorta (HCC) Tobacco [...] Staphylococcus aureus (MSSA), unspecified part of lung ([facility]) Acute respiratory failure with hypoxia ([facility]) [J96.01] Nonrheumatic aortic valve stenosis Pulmonary embolism, unspecified chronicity, unspecified pulmonary embolism type, unspecified whether acute cor pulmonale present (HCC) documented in this encounter [facility] note* Diagnosis Paroxysmal A-fib [...] Tracheostomy status ESRD on hemodialysis (CMS/HCC) (HCC) 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 Decubitus ulcer of sacral region, unstageable (HCC) Sacral osteomyelitis (CMS/HCC) (HCC) documented in this encounter [facility]* Diagnosis Paroxysmal A-fib (CMS/HCC) (HCC)- [...] in remission Acute respiratory failure with hypoxia ([facility]) [J96.01]- Primary RSV (acute bronchiolitis due to respiratory syncytial virus) Acute bronchiolitis due to respiratory syncytial virus (RSV) Tracheostomy dependence (HCC) Tracheostomy status Leg DVT (deep venous thromboembolism), acute, left (HCC) Pulmonary embolism, unspecified chronicity, unspecified pulmonary embolism type, unspecified whether acute cor pulmonale present ([facility]) S/P AVR documented in this encounter [facility]* Diagnosis Paroxysmal A-fib (CMS/HCC) (HCC)- [...] ulcer of sacral region, unstageable (HCC) 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 [facility] noteNo assessment information availableWAC[facility] Work Phone: Evaluation note* Diagnosis Paroxysmal A-fib [...] malnutrition (CMS/HCC) (HCC) documented in this encounter [facility]* Diagnosis Paroxysmal A-fib [...] hemodialysis (CMS/HCC) (HCC) documented in this encounter [facility]* Diagnosis Paroxysmal A-fib [...] Acute respiratory failure with hypoxia (HCC)- Primary Ventilator dependent (HCC) Dependence on respirator, status Tracheostomy dependence (HCC) Tracheostomy status Pulmonary embolism, other, unspecified chronicity, unspecified whether acute cor pulmonale present (HCC) S/P AVR ESRD on hemodialysis (CMS/HCC) (HCC) documented in this encounter [facility]* Diagnosis Paroxysmal A-fib (CMS/HCC) (HCC)- [...] remission Hemoptysis- Primary documented in this encounter [facility]* Diagnosis Paroxysmal A-fib [...] use disorder Alcohol use disorder in remission Tachycardia- Primary Unspecified tachycardia Dialysis patient (HCC) Renal dialysis status [facility]* Instructions* Fabiola Huitron RN - [...] or dog food bags, or a vacuum ceiling cleaner. Your dressing will be removed at [...] call and ask for the Interventional Radiologist pinion staker. Where can you learn more? Go to [email or web address] and sign in to your [employer] account. Enter P616 in the Search Health Information box to learn more about Hemodialysis Access: What to Expect at Home. If you do not have an account, please click on the "Sign Up Now" link. Current as of: August 12, 2016 Content Version: 11.2 [id number] [employer]. Care instructions adapted under license by [employer]. If youhave questions about a medical condition or this instruction, always ask your healthcare professional. [employer] disclaims any warranty or liability for your use of this information. documented in this encounterSUMMA Work Phone: Reason for referral (narrative)* Outpatient Procedure (Routine) - Authorized Specialty Diagnoses / Procedures Referred By Contac t Referred To Contact [facility] Diagnoses Acute blood loss anemia Rectal bleeding Procedures COLONOSCOPY DIAGNOSTIC COLONOSCOPY FLX DX W/COLLJ SPEC WHEN PFRMD Rudy Painter MD [address] [place] [address] [facility] [address] [place] [address] Referral ID Status Reason Start Date Expiration Date Visits Requested Visits Authorized [id number] Authorized Auto-Generat ed Referral 12/25/2021 12/25/2022 1 1 [facility] for referral (narrative)* Outpatient Procedure (Routine) - Authorized Specialty Diagnoses / Procedures Referred By Contac t Referred To Contact [facility] Diagnoses Other iron deficiency anemia Rectal bleeding Procedures COLONOSCOPY DIAGNOSTIC COLONOSCOPY FLX DX W/COLLJ SPEC WHEN PFRMD Rudy Painter MD [address] [place] [address] [facility] [address] [place] [address] Referral ID Status Reason Start Date Expiration Date Visits Requested Visits Authorized [id number] Authorized Auto-Generat ed Referral 12/30/2021 12/30/2022 1 1 [facility] for referral (narrative)* Consultation (Routine) - Pending Review Specialty Diagnoses / Procedures Referred By Contac t Referred To Contact Wound [facility] Diagnoses Skin sore Procedures MS OFFICE/OUTPATIENT NEW HIGH MDM 60-74 MINUTES Jese Frank MD [address] [place] [address] [facility] Op Wnd Ostomy [facility] [address] [place] [address] Referral ID Status Reason Start Date Expiration Date Visits Requested Visits Authorized [id number] Pending Review Specialty Services Required 05/01/2023 04/30/2024 1 1 [facility] for referral (narrative)No reason for referral information availableWACMC Healthcare [facility] Work Phone: Reokro for visit Narrative* Auth/Cert (Routine) Specialty Diagnoses / Procedures Referred By Contac t Referred To Contact Diagnoses Atrial flutter, unspecified type (HCC) Procedures . Ramón Romano MD [address] [place] [address] Phone: tel: fax: [facility] [address] [place] [address] Phone: tel: Referral ID Status Reason Start Date Expiration Date Visits Re quested Visits Authorized [id number] 1 1 [facility] Health Assessments Diagnosis Chronic kidney disease, stage V (HCC) Chronic kidney disease, Stage V Diagnosis Preoperative testing Preoperative examination, unspecified Hypertensive kidney disease with CKD stage IV (HCC) Unspecified hypertensive kidney disease with chronic kidney disease stage I through stage IV, or unspecified History of Present Illness * Brandy Lind, SWEETIE - 10/17/2020 8:00 AM EST Removed tunneled [...] Documents on File Type Date Recorded Patient Scaffold Setter Expl anation Advance Directive(s) 11/22/2020 11:20 AM Advance Directive(s) 06/12/2020 8:15 AM Advance Directive(s) 03/20/2020 7:16 AM Documents on File Type Date Recorded Patient Scaffold Setter Expl anation Advance Directive(s) 11/22/2020 11:20 AM Advance Directive(s) 06/12/2020 8:15 AM Advance Directive(s) 03/20/2020 7:16 AM Documents on File Type Date Recorded Patient Scaffold Setter Expl anation Power of Food Service Aide 02/14/2023 1:37 PM Advance Directives and Livin g Will 02/14/2023 1:37 PM Documents on File Type Date Recorded Patient Scaffold Setter Expl anation Power of Food Service Aide 02/14/2023 1:37 PM Advance Directives and Livin [...] Documents on File Type Date Recorded Patient Scaffold Setter Expl anation Advance Directives and Livin g Will 10/03/2024 11:27 AM Power of Food Service Aide 02/14/2023 1:37 PM Advance Directives and Livin g Will 02/14/2023 1:37 PM Date Activated Date Inactivated Comments 10/03/2024 6:19 PM Date Activated Date Inactivated Comments 08/17/2023 12:04 AM 08/17/2023 5:18 PM Documents on File Type Date Recorded Patient Scaffold Setter Expl anation Advance Directives and Livin g Will 10/03/2024 11:27 AM Power of Food Service Aide 02/14/2023 1:37 PM Advance Directives and Livin g Will 02/14/2023 1:37 PM Date Activated Date Inactivated Comments 10/03/2024 6:19 PM Date Activated Date Inactivated Comments 08/17/2023 12:04 AM 08/17/2023 5:18 PM Healthcare Agents on File Name Relationship Healthcare Agent Relationshi p Communication Omar Lillian Child Health Care Agent [phone] (Mobile) Healthcare Agents on File Name Relationship Healthcare Agent Relationshi p Communication Omar Lillian Child Health Care Agent [phone] (Mobile) Healthcare Agents on File Name Relationship Healthcare Agent Relationshi p Communication Omar Lillian Child Health Care Agent Healthcare Agents on File Name Relationship Healthcare Agent Relationshi p Communication Omar Lillian Child Health Care Agent [phone] (Mobile) Date Activated Date Inactivated Comments 11/09/2024 2:04 [...] Relationship Healthcare Agent Relationshi p Communication Omar Lililan Child Health Care Agent Healthcare Agents on File Name Relationship Healthcare Agent Relationshi p Communication Omar Lillian Child Health Care Agent Healthcare Agents on File Name Relationship Healthcare Agent Relationshi p Communication Omar Lillian Child Health Care Agent Documents on File Type Date Recorded Patient Scaffold Setter Expl anation Power of Food Service Aide 01/24/2025 12:29 PM Advance Directives and Livin g Will 10/03/2024 11:27 AM Power of Food Service Aide 02/14/2023 1:37 PM Advance Directives and Livin [...] Omar Lillian Child Health Care Agent Toma [facility] Health Care Agent Documents on File Type Date Recorded Patient Scaffold Setter Expl anation Power of Food Service Aide 01/24/2025 12:29 PM Advance Directives and Livin g Will 10/03/2024 11:27 AM Power of Food Service Aide 02/14/2023 1:37 PM Advance Directives and Livin [...] Omar Lillian Child Health Care Agent Toma [facility] Alternate Health Care Agent Healthcare Agents on File Name Relationship Healthcare Agent Relationshi p Communication Omar Lillian Child Health Care Agent Toma [facility] Alternate Health Care Agent Healthcare Agents on File Name Relationship Healthcare Agent Relationshi p Communication Omar Lillian Child Health Care Agent Toma [facility] Alternate Health Care Agent Healthcare Agents on File Name Relationship Healthcare Agent Relationshi p Communication Omar Lillian Child Health Care Agent Toma [facility] Alternate Health Care Agent Date Activated Date [...] Lillian Child Health Care Agent Toma [facility] Alternate Health Care Agent Date Activated Date [...] Omar Lillian Child Health Care Agent [facility] Care Agent Healthcare Agents [...] Documents on File Type Date Recorded Patient Scaffold Setter Expl anation Power of Food Service Aide 01/24/2025 12:29 PM Omar Lillian Advance Directives and Livin g Will 10/03/2024 11:27 AM Power of Food Service Aide 02/14/2023 1:37 PM Advance Directives and Livin [...] Omar Lillian Child Health Care Agent [facility] Alternate Health Care Agent Healthcare Agents on File Name Relationship Healthcare Agent Relationshi p Communication Omar Lillian Child Health Care Agent [facility] Health Care Agent Documents on File Type Date Recorded Patient Scaffold Setter Expl anation Power of Food Service Aide 01/24/2025 12:29 PM Omar Lillian Advance Directives and Livin g Will 10/03/2024 11:27 AM Power of Food Service Aide 02/14/2023 1:37 PM Advance Directives and Livin [...] Omar Lillian Child Health Care Agent [facility] Health Care Agent Healthcare Agents on File Name Relationship Healthcare Agent Relationshi p Communication Omar Lillian Child Health Care Agent [facility] Health Care Agent Summary Purpose [...] CT lung screening low dose Fransisco Pineda, RIPSAW GRADER [address] [place] [address] Referral ID Status Reason Start Date Expiration Date V isits Requested Visits Authorized [id number] Authorized 09/07/2023 09/06/2024 1 1 Chief Complaint and Reason for Visit Chief Complaint Admit Date LABWORK February 05, 2025 5:56a m Chief Complaint Admit Date LABWORK February 05, 2025 5:56a m LABOWRK February 07, 2025 5:00a m [facility] LAB WORK February 15, 2025 5:0 0am [facility] LAB WORK February 20, 2025 4:0 0am Chief Complaint Admit Date LABWORK February 05, 2025 5:56a m LABOWRK February 07, 2025 5:00a m Chief Complaint Admit Date LABWORK February 05, 2025 5:56a m LABOWRK February 07, 2025 5:00a m [facility] LAB WORK February 08, 2025 5:0 0am [facility] LAB WORK February 12, 2025 5:0 0am [facility] LAB WORK February 13, 2025 5:0 0am [facility] LAB WORK February 15, 2025 5:0 0am [facility] LAB WORK February 20, 2025 4:0 0am Additional Source Comments Source Comments (unrecognize d section and content) In the event this informatio n is protected by the Federal Confidentiality of Alcohol and Drug Abuse Patient Records regulations: The Federal rules restrict any use of the information to criminally investigate or prosecute any alcohol or drug abuse patient.[facility] the event this information is protected by the Federal Confidentiality of Alcohol and Drug Abuse Patient Records regulations: The Federal rules restrict any use of the information to criminally investigate or prosecute any alcohol or drug abuse patient.[facility] the event this information is protected by the Federal Confidentiality of Alcohol and Drug Abuse Patient Records regulations: The Federal rules restrict any use of the information to criminally investigate or prosecute any alcohol or drug abuse patient.[facility] the event this information is protected by the Federal Confidentiality of Alcohol and Drug Abuse Patient Records regulations: The Federal rules restrict any use of the information to criminally investigate or prosecute any alcohol or drug abuse patient.[facility] the event this information is protected by the Federal Confidentiality of Alcohol and Drug Abuse Patient Records regulations: The Federal rules restrict any use of the information to criminally investigate or prosecute any alcohol or drug abuse patient.[facility] the event this information is protected by the Federal Confidentiality of Alcohol and Drug Abuse Patient Records regulations: The Federal rules restrict any use of the information to criminally investigate or prosecute any alcohol or drug abuse patient.[facility] the event this information is protected by the Federal Confidentiality of Alcohol and Drug Abuse Patient Records regulations: The Federal rules restrict any use of the information to criminally investigate or prosecute any alcohol or drug abuse patient.[facility] the event this information is protected by the Federal Confidentiality of Alcohol and Drug Abuse Patient Records regulations: The Federal rules restrict any use of the information to criminally investigate or prosecute any alcohol or drug abuse patient.[facility] (unrecognized sect ion and content) No Status Records FoundNo Status Records FoundNo Status Records FoundNo Status Records FoundNo Status Records FoundNo Status Records Found INFORMATION SOURCE (unrecogn ized section and content) DATE CREATED AUTHOR 11/26/2020 [facility] DATE CREATED AUTHOR AUTHOR'S ORGANIZ ATION 09/18/2021 [facility] [employer] DATE CREATED AUTHOR AUTHOR'S ORGANIZ ATION [facility]2022 [facility] [place] DATE CREATED AUTHOR AUTHOR'S ORGANIZ ATION 04/16/2024 [facility] DATE CREATED AUTHOR AUTHOR'S ORGANIZ ATION 03/27/2025 [facility] [employer] [facility] DATE CREATED AUTHOR AUTHOR'S ORGANIZ ATION 04/05/2025 [facility] Continuous Active and Recently Administ ered Medications (unrecognized section and content) Medication Order 09/13/2021 09/14/2021 09/15/2021 0.9 % sodium chloride infusion IntraVENous, at 50 mL/hr, CONTINUOUS, Starting on Wed09/15/21 at 0945, Pre-op (day of surgery) 0955 (New Bag - Prov ider: Marjorie Menjivar, SWEETIE) PRN Medication Order 09/13/2021 09/14/2021 09/15/2021 lidocaine [...] sodium chloride 0.9 % 100 mL IVPB (Add-Lee) 3,000 mg, IntraVENous, at 200 mL/hr, Administer over 30 Minutes, Every 24 hours, First dose on Wed01/25/25 at 1700, ADD-Lee bag, Suspected Indication (Select all that apply): Bone and Joint Infection 1838 (New Bag - Provider: Miriam Reza RN)2012 (Stopped - Provider: Casandra Rose RN) 1645 (New Bag - Provider: Angella Ley RN)1715 (Due: Stopped - Provider: Angella Ley RN) 1700 (Canceled Entry - Provider: Automatic Discharge Provider - Comment: Automatically canceled at discontinue of medication order) ampicillin-sulbactam (Unasyn) 3,000 mg in sodium chloride 0.9 % 100 mL IVPB (Add-Lee) (CANCELED) 3,000 mg, IntraVENous, at 200 mL/hr, Administer over 30 Minutes, Every 24 hours, First dose on Brigid 02/01/25 at 1030, For 13 days, ADD-Lee bag, Suspected Indication (Select all that apply): Skin and Soft Tissue Infection 1051 (New Bag - Provider: Kristine Donato, SWEETIE)1136 (Stopped - Provider: Kristine Donato RN) chlorhexidine (Hibiclens) 4 % solution Topical, Daily, First dose on Wed02/01/25 at 1400 1341 (Given - Provider: Kristine Donato, SWEETIE) collagenase 250 UNIT/GM ointment Topical, Daily, First [...] RN) 0815 (Given - Provider: Kristine Donato, RN) midodrine (Proamatine) tablet 10 mg 10 [...] 1315 1838 (New Bag - Provider: Miriam Reza, SWEETIE) PRN Medication Order 01/30/2025 01/31/2025 02/01/2025 acetaminophen [...] Jun Borrero MD) lidocaine-EPINEPHrine (Xylocaine W/EPI) 1 %-1:[id number] injection (COMPLETED) As needed, Starting on Wed01/30/25 [...] pupils, Starting on Wed01/19/25 at 0614, +++notify pinion staker provider if used+++ oxyCODONE (Roxicodone) immediate release [...] hurtado)2119 (Given - Provider: Rudolph Najera RN) 0831 (Given - Provider: Ochoa Johnson, SWEETIE)2123 [...] Sinclair RN) 0614 (Given - Provider: Rudolph Najera RN)1612 (Not Given - Provider: Liv [...] RN)0825 (New Bag - Provider: Shasta Sinclair, RN)1340 (Stopped - Provider: Shasta Sinclair RN)1351 [...] Liv Grimaldo RN)2115 (Stopped - Provider: Rosio Bey, SWEETIE)2125 (New Bag - Provider: Rosio Bey, SWEETIE) 0025 (Stopped - Provider: Rosio Bey, SWEETIE)0438 (New Bag - Provider: Rosio Bey, SWEETIE)0739 (Stopped - Provider: Tyson Freeman, SWEETIE)1034 (New Bag - Provider: Tyson Freeman, SWEETIE)1425 (Stopped - Provider: Tyson Freeman RN)1600 (Canceled [...] Reason: Patient/family refused)1351 (Given - Provider: Shasta Sniclair RN)1700 (Not Given - Provider: Shasta Sinclair [...] Johnson, RN)1032 (Handoff - Provider: Ochoa Johnson, RN)1920 (Handoff - Provider: Susanna Jackson, RN) 0222 (New Bag - Provider: Rosio Bey, RN)0433 (Rate/Dose Change - Provider: Rosio Bey, RN)0719 (Stopped - Provider: Susanna Jackson RN) [...] sedation for opioid reversal - MUST notify pinion staker provider immediately after first dose, may give [...] 2100 1011 (Given - Provider: Whitney Dobbins, SWEETIE)2102 (Given - Provider: Rosio Bey, SWEETIE) 0936 (Given - Provider: Whitney Dobbins, SWEETIE)2123 (Given - Provider: Mir Cannon RN) 0843 (Given - Provider: Christopher Chen, SWEETIE) pantoprazole (ProtoNix) EC tablet 40 mg 40 mg, Oral, 2 times daily before meals, First dose on Wed03/13/25 at 1745, Do not crush, chew, or split. 0619 (Not Given - Provider: Bashir R Walker, RN - Reason: Patient/family refused)1639 (Not Given [...] Reason: Patient/family refused)1643 (Not Given - Provider: Whitney Dobbins RN [...] 1 dose 1639 (Given - Provider: Whitney Dobbins, SWEETIE) warfarin (Coumadin) tablet 7.5 mg (COMPLETED) 7.5 [...] Christopher Chen RN)0948 (Stopped - Provider: Christopher hCen RN - Comment: [Order ends at this [...] Administer if oral route cannot be used. Scheduled Medication Order 04/03/2025 04/04/2025 04/05/2025 metoprolol tartrate (Lopressor) injection 5 mg (COMPLETED) 5 mg, IntraVENous, Once, On Brigid 04/05/25 at 1040, For 1 dose 1100 (Given - Provid er: Michelle Nunes RN) Care Teams (unrecognized sec tion and content) Currency Counter Relationship Specialty Start Date End Date Daryn Loomis MD [address] [place] [address], [facility] [place] [phone] PCP - General Family Medicine 12/18/20 Currency Counter Relationship Specialty Start Date End Date Candido Starr MD [address] [address] Nephrology 02/22/20 Currency Counter Relationship Specialty Start Date End Date Candido Starr MD [address] [address] Nephrology 02/22/20 Currency Counter Relationship Specialty Start Date End Date Candido Starr MD [address] [address] Nephrology 02/22/20 Currency Counter Relationship Specialty Start Date End Date Daryn Loomis MD [address] [place] [phone] PCP - General 12/18/20 Currency Counter Relationship Specialty Start Date End Date Daryn Loomis MD [address] [place] [phone] PCP - General 12/18/20 Currency Counter Relationship Specialty Start Date End Date Daryn Loomis MD [address] [place] [phone] PCP - General 12/18/20 Currency Counter Relationship Specialty Start Date End Date Daryn Loomis MD [address] [place] [phone] PCP - General 12/18/20 Currency Counter Relationship Specialty Start Date End Date Daryn Loomis MD [address] [place] [phone] PCP - General 12/18/20 Currency Counter Relationship Specialty Start Date End Date Daryn Loomis MD [address] [place] [phone] PCP - General 12/18/20 Currency Counter Relationship Specialty Start Date End Date Daryn Loomis MD [address] [place] [phone] PCP - General 12/18/20 Currency Counter Relationship Specialty Start Date End Date Daryn Loomis MD [address] [place] [address] PCP - General 12/18/20 Currency Counter Relationship Specialty Start Date End Date Candido Starr MD [address] [place] [phone] Nephrology 02/22/20 Currency Counter Relationship Specialty Start Date End Date Candido Starr MD [address] [place] [address] Nephrology 02/22/20 Currency Counter Relationship Specialty Start Date End Date Daryn Loomis MD [address] [place] [address] PCP - General 12/18/20 Currency Counter Relationship Specialty Start Date End Date AbaLeilani groe [address] [place] [address] PCP - General Family Medicine 10/03/24 Currency Counter Relationship Specialty Start Date End Date AbaLeilani gore [address] [place] [address] PCP - General Family Medicine 10/03/24 Currency Counter Relationship Specialty Start Date End Date AbaLeilani gore [address] [place] [address] PCP - General Family Medicine 10/03/24 Currency Counter Relationship Specialty Start Date End Date AbaJameyLeilani [address] [place] [address] PCP - General Family Medicine 10/03/24 Currency Counter Relationship Specialty Start Date End Date Leilani Han [address] [place] [phone] PCP - General Family Medicine 10/03/24 Currency Counter Relationship Specialty Start Date End Date Leilani Han [address] [place] [phone] PCP - General Family Medicine 10/03/24 Currency Counter Relationship Specialty Start Date End Date Leilani Han [address] [place] [phone] PCP - General Family Medicine 10/03/24 Currency Counter Relationship Specialty Start Date End Date Leilani Han [address] [place] [phone] PCP - General Family Medicine 10/03/24 Currency Counter Relationship Specialty Start Date End [place] [phone] PCP - General Family Medicine 10/03/24 Currency Counter Relationship Specialty Start Date End Date Leilani Han [address] [place] [phone] PCP - General Family Medicine 10/03/24 Currency Counter Relationship Specialty Start Date End Date Leilani Han [address] [place] [phone] PCP - General Family Medicine 10/03/24 Currency Counter Relationship Specialty Start Date End Date Leilani Han [address] [place] [phone] PCP - General Family Medicine 10/03/24 Currency Counter Relationship Specialty Start Date End Date Leilani Han [address], [phone] PCP - General Family Medicine 10/03/24 Currency Counter Relationship Specialty Start Date End Date Leilani Han [address], [phone] PCP - General Family Medicine 10/03/24 Currency Counter Relationship Specialty Start Date End Date Leilani Han [address], [phone] PCP - General Family Medicine 10/03/24 Currency Counter Relationship Specialty Start Date End Date Leilani Han [address], [phone] PCP - General Family Medicine 10/03/24 Currency Counter Relationship Specialty Start Date End Date Leilani Han [address], [phone] PCP - General Family Medicine 10/03/24 Currency Counter Relationship Specialty Start Date End [place] [phone] PCP - General Family Medicine 10/03/24 Currency Counter Relationship Specialty Start Date End Date Leilani Han [address] [place] [address] PCP - General Family Medicine 10/03/24 Currency Counter Relationship Specialty Start Date End Date Leilani Han [address] [place] [address] PCP - General Family Medicine 10/03/24 Currency Counter Relationship Specialty Start Date End Date Leilani Han [address] [place] [address] PCP - General Family Medicine 10/03/24 Currency Counter Relationship Specialty Start Date End Date Leilani Han [address] [place] [address] PCP - General Family Medicine 10/03/24 Currency Counter Relationship Specialty Start Date End Date Leilani Han [address] [place] [address] PCP - General Family Medicine 10/03/24 Currency Counter Relationship Specialty Start Date End Date Leilani Han [address], [phone] PCP - General Family Medicine 10/03/24 Currency Counter Relationship Specialty Start Date End Date Leilani Han [address], [phone] PCP - General Family Medicine 10/03/24 Currency Counter Relationship Specialty Start Date End Date Leilani Han [address] [place] [phone] PCP - General Family Medicine 10/03/24 Team [...] Attending Provider Active Start: February 20, 2025 Currency Counter Relationship Specialty Start Date End Date Leilani Han [address] [place] [phone] PCP - General [facility] Medicine 10/03/24 Currency Counter Relationship Specialty Start Date End Date AbaThania ramosh [address] [place] [phone] PCP - General Family Medicine 10/03/24 Currency Counter Relationship Specialty Start Date End Date Thania Hanh [address] [place] [phone] PCP - General Family Medicine 10/03/24 Currency Counter Relationship Specialty Start Date End Date Thania Hanh [address] [place] [phone] PCP - General Family Medicine 10/03/24 Currency Counter Relationship Specialty Start Date End [place] [phone] PCP - General Family Medicine 10/03/24 Currency Counter Relationship Specialty Start Date End Date [place] [phone] PCP - General Family Medicine 10/03/24 Team [...] February 20, 2025 End: February 20, 2025 Currency Counter Relationship Specialty Start Date End Date Leilani [place] [phone] PCP - General Family Medicine 10/03/24 Team [...] 2025 Team Status: Active Member Role/Relationship Status Dates Kayley ALBA MD Attending Provider Active Start: February 12, 2025 Team Status: Active Member Role/Relationship Status Dates Kayley ALBA MD [...] 2025 Team Status: Active Member Role/Relationship Status Dates Kayley ALBA MD Attending Provider Active Start: March 08, 2025 Team Status: Active Member Role/Relationship Status Dates Jayesh ALBA Attending Provider Active Sta rt: March 09, 2025 Team Status: Active Member Role/Relationship Status Dates Jayesh ALBA Attending Provider Active Sta rt: March 12, 2025 Team Status: Active Member Role/Relationship Status Dates Kayley ALBA MD Attending Provider Active Start: March 22, 2025 Team Status: Inactive Member Role/Relationship Status Dates Kayley ALBA MD Attending Provider Active Start: February 12, 2025 End: February 12, 2025 Currency Counter Relationship Specialty Start Date End Date [facility] [place] [phone] PCP - General Family Medicine 10/03/24 Currency Counter Relationship Specialty Start Date End Date Leilani Han [address] [place] [phone] PCP - General Family Medicine 10/03/24 Reason [...] To Contact Diagnoses New onset a-fib (CMS/HCC) (HCC) Procedures . 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 Bruce Nguyen MD [address] [place] [address] Phone: tel: fax: [facility] Medical Intensive Care Unit MICU T[address] [place] [phone] Phone: tel: Referral ID Status Reason Start Date Expiration Date Visits Re quested Visits Authorized [id number] 1 1 Reason Onset Date Comments Anticoagulation [...] was bright red and it stopped just MEDICAL SPECIALIST when in transport. Specialty Diagnoses / Procedures Referred By Contac t Referred To Contact Diagnoses Hemoptysis Procedures . Bettye Pierre MD [address] [place] [address] Phone: tel: fax: [facility] Trauma Neuro Progressive Care Unit PCU [address] [place] [address] Phone: tel: Referral ID Status Reason Start Date Expiration Date Visits Re quested Visits Authorized [id number] 1 1 Reason Onset Date Comments Appointment 02/23/2025 Reason Comments Shortness of Breath Pt arrived from [facility] via EMS. Pt was starting dialysis and feeling short of breath dialysis was stopped and sent to the hospital to be evaluated. Specialty Diagnoses / Procedures Referred By Contac t Referred To Contact Diagnoses SOB (shortness of breath) Procedures 0 Rubi Sanon MD [address] [place] [address] Phone: tel: fax: [facility] Cardiac Progressive Care Unit PCU [address] [place] [address] Phone: tel: Referral ID Status Reason Start Date Expiration Date Visits Re quested Visits Authorized [id number] 1 1 Reason Onset Date Comments Appointment 03/26/2025 Reason Onset Date Comments Cancelled Appointment 04/05/2025 Reason Comments Rapid Heart Rate Goals (unrecognized section and content) Goals may [...] BE BASED ON THE PRIMARY CLINICAL RECORDS. [facility] [employer] [facility]. provides no warranty or guarantee of the accuracy or completeness of information in this document.
[2025-04-09 09:36] LABS: Prothrombin Time (Protime)PT. 26.1 SECONDS (11.7-14.9)
[2025-04-09 09:53] LABS: AST(SGOT) 38 U/L (<=37); Alanine Aminotransfer ALT/SGPT 14 U/L (<=46); Albumin, Serum 3.1 g/dL (3.5-5.0); Alkaline Phosphatase 282 U/L (40-129); Anion Gap 12 (5-15); BUN 52 mg/dL (4-19); BUN/Creat Ratio 10.9 RATIO (10-20); Calcium,Total 9.8 mg/dL (7.6-11.0); Carbon Dioxide 26.0 mmol/L (21.0-32.0); Chloride 98 mmol/L (98-108); Globulin 4.2 g/dL (2.2-4.2); Glucose 82 mg/dL (70-99); Potassium 6.0 mmol/L (3.3-5.1)
[2025-04-09 11:56] LABS: Hematocrit 29.7 % (40-54); Hemoglobin 9.5 g/dL (13.0-16.5); Immature Granulocytes Count 0.050 X10^3/uL (0.0-0.0); Mean Corp Hgb Conc 32.0 g/dL (32-36); Mean Corpuscular Volume 94.9 fL (80-94); Mean Platelet Vol. 9.3 fl (6.2-12.0); NRBC Flagged by Analyzer 0 % (0-5); Platelet Count 390 K/mm3 (150-450); RBC Distribution Width CV 16.0 % (11.6-14.6); RBC Distribution Width SD 55.3 fl (35.1-43.9); Red Blood Count 3.13 M/mm3 (4.6-6.2); White Blood Count 7.2 K/mm3 (4.4-11.0)
== END ==
LOC: OLS.SANC 05:00
DX: I48.91 Unspecified atrial fibrillation (principal); D64.9 Anemia, unspecified; I10 Essential (primary) hypertension; Z79.01 Long term (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 anticoagulants
CPT/HCPCS: 36415; 80053; 84100; 85025; 85610

== ENCOUNTER → 2025-04-12 | Outpatient (REF) | payer MEDICARE, SELFPAY ==
[2025-04-12 09:19] LABS: Prothrombin Time (Protime)PT. 37.3 SECONDS (11.7-14.9)
== END ==
LOC: OLS.SANC 05:00
DX: Z79.01 Long term (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 anticoagulants (principal)
CPT/HCPCS: 36415; 85610

== ENCOUNTER → 2025-04-16 | Outpatient (REF) | payer MEDICARE, SELFPAY ==
[2025-04-16 08:51] LABS: Hematocrit 29.3 % (40-54); Hemoglobin 9.4 g/dL (13.0-16.5); Immature Granulocytes Count 0.050 X10^3/uL (0.0-0.0); Mean Corp Hgb Conc 32.1 g/dL (32-36); Mean Corpuscular Volume 92.4 fL (80-94); Mean Platelet Vol. 9.5 fl (6.2-12.0); NRBC Flagged by Analyzer 0 % (0-5); Platelet Count 397 K/mm3 (150-450); RBC Distribution Width CV 16.3 % (11.6-14.6); RBC Distribution Width SD 54.5 fl (35.1-43.9); Red Blood Count 3.17 M/mm3 (4.6-6.2); White Blood Count 6.0 K/mm3 (4.4-11.0)
[2025-04-16 09:06] LABS: Prothrombin Time (Protime)PT. 66.6 SECONDS (11.7-14.9)
[2025-04-16 09:25] LABS: AST(SGOT) 41 U/L (<=37); Alanine Aminotransfer ALT/SGPT 13 U/L (<=46); Albumin, Serum 3.1 g/dL (3.5-5.0); Alkaline Phosphatase 331 U/L (40-129); Anion Gap 16 (5-15); BUN 68 mg/dL (4-19); BUN/Creat Ratio 13.0 RATIO (10-20); Calcium,Total 10.2 mg/dL (7.6-11.0); Carbon Dioxide 22.7 mmol/L (21.0-32.0); Chloride 96 mmol/L (98-108); Globulin 4.4 g/dL (2.2-4.2); Glucose 91 mg/dL (70-99); Potassium 6.1 mmol/L (3.3-5.1)
== END ==
LOC: OLS.SANC 05:00
DX: I12.0 Hypertensive chronic kidney disease with stage 5 chronic kidney disease or end stage renal disease (principal); N18.6 End stage renal disease; D63.1 Anemia in chronic kidney disease; I48.91 Unspecified atrial fibrillation; Z79.01 Long term (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 anticoagulants
CPT/HCPCS: 36415; 80053; 85025; 85610

== ENCOUNTER → 2025-04-17 | Outpatient (REF) | payer MEDICARE, SELFPAY ==
[2025-04-17 08:19] LABS: Prothrombin Time (Protime)PT. 87.5 SECONDS (11.7-14.9)
== END ==
LOC: OLS.SANC 05:00
DX: Z79.01 Long term (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 anticoagulants (principal)
CPT/HCPCS: 36415; 85610

== ENCOUNTER → 2025-04-18 05:00 | Outpatient (REF) | payer MEDICARE, SELFPAY ==
--- OUTSIDE RECORDS SUMMARY | 2025-04-18 04:32 | XMS RPT_ITS | CCD ---
Author Organization [facility] CliniSymt Care Team Providers Care Surgery Scheduler Name Role Phone Candido Starr Unavailable Unavailable Primary Care Provider UnavailDaryn Randall MD Primary Care Provider Unavailable Primary Care Provider UnavailCandido Hardy MD Unavailable Daryn Loomis MD Primary Care Provider Candido Starr MD Un[facility] Care Provider [phone] Kayley Melendrez MD Attending Provider Unava ilable Jayesh Nguyen Attending Provider Unavailab Kayley Cm MD Referring Provider Unava ilable [facility] Primary Care Unavailable RUBI SANON Admitting Unavailable TERRELL, WELLINGTON Consulting Unavailable ANU CASTRO Attending Unavailable [facility] Primary Care Unavailable [facility] Primary Care Unavailable BETTYE PIERRE Admitting Unavailable TERRELL, WELLINGTON Consulting Unavailable ANTHONY HURTADO Attending Unavailable [facility] Care Unavailable DA, JAYAPRAKASH Consulting Unavailable MONTEMAYOR, LUCIANO Admitting Unavailable MONTEMAYOR, LUCIANO Attending Unavailable ELDON ALBA Consulting Unavailable TIFFANIE VILLEGAS Consulting Unavailable DARYN SANTACRUZ Consulting Unavailable CALI ARREDONDO Consulting Unavailable [facility] Primary Care Unavailable DIETER VILLEGAS Attending Unavailable [facility] Primary Care Unavailable QUIANA JEFFERY Admitting Unavailable JUNE CHAPARRO Consulting Unavailable BARB DAWKINS Attending Unavailable JESE FRANK Referring Unavailable [facility] Primary Care Unavailable MIKALA DAY Attending Unavailable MIKALA DAY Referring Unavailable [facility] Primary Care Unavailable MONTEMAYOR, LUCIANO Referring Unavailable ABA, WILDWOOD Primary Care Unavailable MONTEMAYOR, LUCIANO Referring Unavailable ABA, WILDWOOD Primary Care Unavailable OSIRIS TERRELL Attending Unavailable ABA, WILDWOOD Primary Care Unavailable MIKALA DAY Attending Unavailable ABA, WILDWOOD Primary Care Unavailable JR SHAH Attending Unavailable DARYN LOOMIS Primary Care Unavailable JESE FRANK Referring Unavailable ABA, WILDWOOD Primary Care Unavailable Mukkamalla OLS, Mahaveer Attending Unavail able [place] OLS, Mahaveer Referring Unavail able [place]alla OLS, Mahaveer Attending Unavail able Mukkamalla OLS, Mahaveer Attending Unavail able Mukkamalla OLS, Mahaveer Attending Unavail able Mukkamalla OLS, Mahaveer Attending Unavail able Mukkamalla OLS, Mahaveer Attending Unavail able Mukkamalla OLS, Mahaveer Attending Unavail able [place]alla OLS, Mahaveer Attending Unavail able [place]alla OLS, Mahaveer Attending Unavail able Katsaros OLS, Peter Attending Unavailable [place] OLS, Mahaveer Attending Unavail able Katsaros OLS, Peter Attending Unavailable [place] OLS, Mahaveer Attending Unavail able [place]alla OLS, Mahaveer Attending Unavail able Katsaros OLS, Peter Attending Unavailable Katsaros OLS, Peter Referring Unavailable Katsaros OLS, Peter Attending Unavailable [place] OLS, Mahaveer Referring Unavail able Mukkamalla OLS, Mahaveer Attending Unavail able Mukkamalla OLS, Mahaveer Attending Unavail able Mukkamalla OLS, Mahaveer Attending Unavail able Allergies Allergy Classification Reported Allergen(s) Allergy Type Date of Onset Reaction(s) Facility (11 sources) Lisinopril Drug Allergy 0 Swelling [facility] Work Phone: (20 sources) Lisinopril Allergy to substance 2 Swelling, Angioedema [facility] Medications Current Medications Medication Drug Class(es) [...] tablet Indications: ESRD on hemodialysis (CMS/HCC) ([facility]) Take 1 tablet (800 mg) by mouth [...] with meals. Take 3 tablets by mo [facility] three times daily with meals. sodium chloride flush 0.9 % injection 3 mL (1 source) Start: 020 sodium chloride flush 0.9 % injection 3 mL sodium zirconium cyclosilicate 5000 mg powder for oral suspension (20 sources) Start: 025 End: take 5 g [...] tablet 650 mg 20 ml albumin human, halfway 250 mg/ml injection (1 source) Human Serum [...] sodium chloride 0.9 % 100 mL IVPB (Add-Leroy) (2 sources) Start: 02-01-2025 End: 02-01-2025 anidulafungin [...] End: 01-22-2025 Start: 01-22-2025 End: 01-22-2025 B Twgjdmm-T-Dakje Acid (NEPHRO-NATO) 0.8 MG TABS (1 source) Start: 10-14-2020 take 1 tablet by mouth once daily B Npovtkf-T-Ujqes Acid (NEPHRO-NATO) 0.8 MG TABS TAKE 1 [...] at 1024, Anesthesia Intraprocedure epoetin rowan-epbx (Retacrit) 30949 UNIT/ML injection (20 sources) Start: 12-04-2024 End: 02-21-2025 inject 0.79 mL by subcutaneous injection every week epoetin rowan-epbx (Retacrit) 25418 UNIT/ML injection Indications: ESRD on Dialysis Inject 0.79 mL (7,900 Units) under the skin 1 (one) time per week. 12/04/2024 02/21/2025 Discontinued (Discontinued by another clinician) Start: 12-04-2024 inject 0.79 mL by bangura bcutaneous injection every week epoetin rowan-epbx (Retacrit) 33563 UNIT/ML injection Indications: ESRD on Dialysis Inject [...] 10-12-2024 IntraVENous, As needed, Star ting on Wed10/12/24 at 0736, Anesthesia Intraprocedure Start: 09-15-2021 End: [...] IntraVENous, As needed, Starting on Wed10/12/24 at 0725, Anesthesia Intraprocedure Start: 10-26-2019 End: [...] at 1024, Anesthesia Intraprocedure polyethylene glycol 3350 50056 mg powder for oral solution (6 sources) Osmotic Laxative Start: 03-13-2025 End: 03-21-2025 take 17 g by mouth every twenty-four hours as needed for constipation 17 g, Oral, Daily PRN, constipation, Starting on Tu03/13/25 at 1742, 1st line for treatment of [...] sodium chloride 5860 mg / sodium sulfate 17550 mg powder for oral solution (6 sources) [...] 1105, Anesthesia Intraprocedure 25 ml protamine sulfate (halfway) 10 mg/ml injection (1 source) Start: 10-12-2024 [...] End: 10-12-2024 Topical, As needed, Starting on Wed10/12/24 at 0749, Anesthesia Intraprocedure vitamin k1 5 mg oral tablet (4 sources) Warfarin Reversal Agent, Vitamin K Start: 04-17-2025 End: 04-17-2025 take 5 mg by mouth once 5 mg, Oral, Once, On Wed04/17/25 at 1100, For 1 dose Start: 01-22-2025 End: 01-22-2025 (4 sources) Start: [...] 08-16-2023 Resolved: 11-12-2023 08-16-2023 Chronic Cardiac dysrhythmias (4 sources) Tachycardia; Translations: [Tachycardia, unspecified] Onset: 04-05-2025 04-05-2025 Episodic Chronic kidney disease (20 sources) [...] Translations: [Essential (primary) hypertension] Onset: 12-01-2022 Chronic Gangrene (2 sources) Necrosis of anatomical site; Translations: [Gangrene, not elsewhere classified] 04-17-2025 Episodic Gastroduodenal ulcer (except hemorrhage) (20 sources) Gastric [...] malnutrition] Onset: 11-20-2024 11-20-2024 Chronic Other aftercare (1 source) half-way (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; Translations: [half-way (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] Onset: 01-12-2025 Episodic Other aftercare (2 sources) director long term care (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 anticoagulants; Translations: [half-way (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 anticoagulants] Onset: 03-24-2025 Episodic Other aftercare (1 source) Other director long term care (current) drug therapy; Translations: [Other director long term care (current) drug therapy] Onset: 02-28-2025 Episodic Other [...] Translations: [Encephalopathy, unspecified] Onset: 10-03-2024 Chronic Other screening for suspected conditions (not mental disorders or infectious disease) (2 sources) INR raised; Translations: [Abnormal coagulation profile] 04-17-2025 Episodic Other skin disorders (1 source) Skin lesion; [...] Translations: [Nicotine dependence, cigarettes, uncomplicated] 09-07-2023 Chronic Superficial injury; contusion (4 sources) Contusion of right hand, initial encounter; Translations: [Contusion of hand(s)] Onset: 04-09-2025 Episodic Unclassified (1 source) Patient encounter status; Translations: [...] Angioedema; Translations: [Hyperkalemia] Onset: 10-03-2024 Episodic Other aftercare (20 sources) Long-term current use of antibiotic; Translations: [half-way (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] Onset: 01-12-2025 5 Episodic Other gastrointestinal disorders (20 sources) Pneumoperitoneum; [...] Test Name Value Interpretation Reference Range Facility CBC W Auto Differential pane l (Bld)on 04-17-2025 Basophils (Bld) [#/Vol] 0.1 10*3/uL 0.0 - 0.2 10*3/uL [facility] Basophils/100 WBC (Bld) 1.4 % 0.0 - 2.0 % [facility] Eosinophils (Bld) [#/Vol] 0.2 10*3/uL 0.0 - 0.5 10*3/uL [facility] Eosinophils/100 WBC (Bld) 3.3 % 0.0 - 6.0 % [facility] Erythrocyte distribution width (RBC) [Ratio] 16.6 % High 11.5 - 15.0 % [facility] Hematocrit (Bld) [Volume fraction] 29.6 % Low 40.0 - 52.0 % [facility] Hemoglobin (Bld) [Mass/Vol] 9.6 g/dL Low 13.0 - 18.0 g/dL [facility] Immature granulocytes (Bld) [#/Vol] 0 10*3/uL NINF - 0.1 10*3/uL [facility] Immature granulocytes/100 WBC (Bld) 0.4 % 0.0 - 2.0 % [facility] Interpretation and review of laboratory results Abnormal [facility] Lymphocytes (Bld) [#/Vol] 1 10*3/uL 1.0 - 4.3 10*3/uL [facility] Lymphocytes/100 WBC (Bld) 13.3 % Low 15.0 - 45.0 % [facility] MCH (RBC) [Entitic mass] 29.3 pg 26. 0 - 34.0 pg [facility] MCHC (RBC) [Mass/Vol] 32.4 % 30.5 - 36.0 % [facility] MCV (RBC) [Entitic vol] 90.2 fL 77.0 - 99.0 fL [facility] Monocytes (Bld) [#/Vol] 1.1 10*3/uL High 0.0 - 0.9 10*3/uL [facility] Monocytes/100 WBC (Bld) 15.2 % High 5.0 - 13.0 % [facility] Neutrophils (Bld) [#/Vol] 4.8 10*3/uL 1.8 - 7.5 10*3/uL [facility] Neutrophils/100 WBC (Bld) 66.4 % 38.0 - 82.0 % [facility] Nucleated RBC/100 WBC (Bld) [Ratio] 0 % [facility] Platelet mean volume (Bld) [Entitic vol] 9.3 fL 9.0 - 12.7 fL [facility] Platelets (Bld) [#/Vol] 381 10*3/uL 140 - 440 10*3/uL [facility] RBC (Bld) [#/Vol] 3.28 10*6/uL Low 4.40 - 5.9 0 10*6/uL [facility] WBC (Bld) [#/Vol] 7.3 10*3/uL 3.6 - 10.7 10*3/uL [facility] Comprehensive metabolic 1998 panelon 04-17-2025 Albumin [Mass/Vol] 2.3 g/dL Low 3.5 - 5.0 g/dL [facility] ALP [Catalytic activity/Vol] 294 U/L High 40 - 150 U/L [facility] ALT [Catalytic activity/Vol] 6 U/L NINF - 40 U/L [facility] Anion gap [Moles/Vol] 11 mmol/L 3 - 13 mmol/L [facility] AST [Catalytic activity/Vol] 57 U/L High NINF - 34 U/L [facility] Bilirubin [Mass/Vol] 0.7 mg/dL NINF - 1.2 mg/dL [facility] Calcium [Mass/Vol] 9.5 mg/dL 8.4 - 10. 2 mg/dL [facility] Chloride [Moles/Vol] 100 mmol/L 98 - 10 7 mmol/L [facility] CO2 [Moles/Vol] 25 mmol/L 22 - 29 mmol/L [facility] Creatinine [Mass/Vol] 4.18 mg/dL High 0.72 - 1.25 mg/dL [facility] GFR/1.73 sq M.predicted (S/P/Bld) [Vol rate/Area] 15.6 mL/min Low - PINF [facility] Comment on above: Calculation based on the Chronic Kidney Disease Epidemiology Collaboration (CKD-EPI) equation refit without adjustment for race Glucose [Mass/Vol] 98 mg/dL 74 - 100 mg/dL [facility] Interpretation and review of laboratory results Abnormal [facility] Potassium [Moles/Vol] 5.7 mmol/L High 3.5 - 5.1 mmol/L [facility] Comment on above: Plasma potassium macey ues may be up to 0.5 mmol/L lower than serum values. Protein [Mass/Vol] 7.7 g/dL 6.4 - 8.3 g/dL [facility] Sodium [Moles/Vol] 136 mmol/L 136 - 145 mmol/L [facility] Urea nitrogen [Mass/Vol] 48 mg/dL High 9 - 23 mg/d L [facility] - CoagulationOrde red By: Yifan Howard on 04-17-2025 PT Coag (Bld) [Time] s High 9.0 - 12.0 s [facility] PT Coag (Bld) [Time]Ordered By: iYfan Howard on 04-17-2025 INR Coag (PPP) [Relative time] Critically high 0.9 - 1.1 [facility] Interpretation and review of laboratory results Abnormal [facility] Prothrombin Time w/INRon INR Coag (PPP) [Relative time] 10.8 {INR} Invalid Interpretation Code [facility] Comment on above: Order Comment: 413.2 Result Comment: CRIT ICAL VALUE CALLED TO LEXX BERG ([facility]) 04/17/25 0831 Brett Stack. RESULTS READ BACK BY SAME. Performed By: #### L 500.4050, L100.0100, L300.3900 #### [facility] [address] [place], [address] PT Coag (PPP) [Time] 87.5 s High 11.7-14.9 [facility] Comment on above: Order Comment: 413.2 Performed By: #### L 500.4050, L100.0100, L300.3900 #### [facility] [address] [place], [address] CBC W/Diff, Automatedon 03-28 Absolute Lymph 0.94 X10 3/uL Normal 0.83-4.51 [facility] Comment on above: Order Comment: 412.2 Performed By: #### L 100.0100, L300.3900, L500.4050 #### [facility] [address] [place], [address] Absolute Neut 3.9 X10 3/uL Normal 2.0-7.7 [facility] Comment on above: Order Comment: 412.2 Performed By: #### L 100.0100, L300.3900, L500.4050 #### [facility] [address] [place], [address] Basophils/100 WBC (Bld) 1.7 % High 0-1 [facility] Comment on above: Order Comment: 412.2 Performed By: #### L 100.0100, L300.3900, L500.4050 #### [facility] [address] [place], [address] Eosinophils/100 WBC (Bld) 4.3 % Normal 0-5 [facility] Comment on above: Order Comment: 412.2 Performed By: #### L 100.0100, L300.3900, L500.4050 #### [facility] [address] [place], [address] Erythrocyte distribution width (RBC) [Ratio] 16.3 % High 11.6-14.6 [facility] Comment on above: Order Comment: 412.2 Performed By: #### L 100.0100, L300.3900, L500.4050 #### [facility] [address] [place], [address] Hematocrit (Bld) [Volume fraction] 29.3 % Low 40-54 [facility] Comment on above: Order Comment: 412.2 Performed By: #### L 100.0100, L300.3900, L500.4050 #### [facility] [address] [place], [address] Hemoglobin (Bld) [Mass/Vol] 9.4 g/dL Low 13.0-16.5 [facility] Comment on above: Order Comment: 412.2 Performed By: #### L 100.0100, L300.3900, L500.4050 #### [facility] [address] [place], [address] IG% 0.800 Normal 0.0-0.9 [facility] Comment on above: Order Comment: 412.2 Result Comment: IG% - Immature Granulocytes (promyelocytes, myelocytes and metamyelocytes) > 1% indicates that a LEFT SHIFT is Present. Performed By: #### L 100.0100, L300.3900, L500.4050 #### [facility] [address] [place], [address] Lymphocytes/100 WBC (Bld) 15.7 % Low 19-41 [facility] Comment on above: Order Comment: 412.2 Performed By: #### L 100.0100, L300.3900, L500.4050 #### [facility] [address] [place], [address] MCH (RBC) [Entitic mass] 29.7 pg Normal 27.0-32.0 [facility] Comment on above: Order Comment: 412.2 Performed By: #### L 100.0100, L300.3900, L500.4050 #### [facility] [address] [place], [address] MCHC (RBC) [Mass/Vol] 32.1 g/dL Normal 32-36 [facility] Comment on above: Order Comment: 412.2 Performed By: #### L 100.0100, L300.3900, L500.4050 #### [facility] [address] [place], [address] MCV (RBC) [Entitic vol] 92.4 fL Normal 80-94 [facility] Comment on above: Order Comment: 412.2 Performed By: #### L 100.0100, L300.3900, L500.4050 #### [facility] [address] [place], [address] Monocytes/100 WBC (Bld) 13.0 % High 0-10 [facility] Comment on above: Order Comment: 412.2 Performed By: #### L 100.0100, L300.3900, L500.4050 #### [facility] [address] [place], [address] Neutrophils/100 WBC (Bld) 64.5 % Normal 47-70 [facility] Comment on above: Order Comment: 412.2 Performed By: #### L 100.0100, L300.3900, L500.4050 #### [facility] [address] [place], [address] Nucleated RBC (Bld) [#/Vol] 0 10*3/uL Normal 0-5 [facility] Comment on above: Order Comment: 412.2 Performed By: #### L 100.0100, L300.3900, L500.4050 #### [facility] [address] [place], [address] Platelet mean volume (Bld) [Entitic vol] 9.5 fL Normal 6.2-12.0 [facility] Comment on above: Order Comment: 412.2 Performed By: #### L 100.0100, L300.3900, L500.4050 #### [facility] [address] [place], [address] Platelets (Bld) [#/Vol] 397 10*3/uL Normal 150-450 [facility] Comment on above: Order Comment: 412.2 Performed By: #### L 100.0100, L300.3900, L500.4050 #### [facility] [address] [place], [address] RBC (Bld) [#/Vol] 3.17 10*6/uL Low 4.6-6.2 [facility] Comment on above: Order Comment: 412.2 Performed By: #### L 100.0100, L300.3900, L500.4050 #### [facility] [address] [place], [address] RDW SD 54.5 fl High 35.1-43.9 [facility] Comment on above: Order Comment: 412.2 Performed By: #### L 100.0100, L300.3900, L500.4050 #### [facility] [address] [place], [address] WBC (Bld) [#/Vol] 6.0 10*3/uL Normal 4.4-11.0 [facility] Comment on above: Order Comment: 412.2 Performed By: #### L 100.0100, L300.3900, L500.4050 #### [facility] [address] [place], [address] Comprehensive Metabolic Prof ilon 04-16-2025 Albumin [Mass/Vol] 3.1 g/dL Low 3.5-5.0 [facility] Comment on above: Order Comment: 412.2 Performed By: #### L 100.0100, L300.3900, L500.4050 #### [facility] [address] [place], [address] Albumin/Globulin [Mass ratio] 0.7 {ratio} Low 0.9-2.4 [facility] Comment on above: Order Comment: 412.2 Performed By: #### L 100.0100, L300.3900, L500.4050 #### [facility] [address] [place], [address] ALK PHOS 331 U/L High 40-129 [facility] Comment on above: Order Comment: 412.2 Performed By: #### L 100.0100, L300.3900, L500.4050 #### [facility] [address] [place], [address] ALT [Catalytic activity/Vol] 13 U/L Normal <=46 [facility] Comment on above: Order Comment: 412.2 Performed By: #### L 100.0100, L300.3900, L500.4050 #### [facility] [address] [place], [address] AST [Catalytic activity/Vol] 41 U/L High <=37 [facility] Comment on above: Order Comment: 412.2 Performed By: #### L 100.0100, L300.3900, L500.4050 #### [facility] [address] [place], [address] Bilirubin [Mass/Vol] 0.68 mg/dL Normal 0.00-1.30 [facility] Comment on above: Order Comment: 412.2 Performed By: #### L 100.0100, L300.3900, L500.4050 #### [facility] [address] [place], [address] BUN/CRE 13.0 RATIO Normal 10-20 [facility] Comment on above: Order Comment: 412.2 Performed By: #### L 100.0100, L300.3900, L500.4050 #### [facility] [address] [place], [address] Calcium [Mass/Vol] 10.2 mg/dL Normal 7.6-11.0 [facility] Comment on above: Order Comment: 412.2 Performed By: #### L 100.0100, L300.3900, L500.4050 #### [facility] [address] [place], [address] Chloride [Moles/Vol] 96 mmol/L Low 98-108 [facility] Comment on above: Order Comment: 412.2 Performed By: #### L 100.0100, L300.3900, L500.4050 #### [facility] [address] [place], [address] CO2 [Moles/Vol] 22.7 mmol/L Normal 21.0-32.0 [facility] Comment on above: Order Comment: 412.2 Performed By: #### L 100.0100, L300.3900, L500.4050 #### [facility] [address] [place], [address] Creatinine [Mass/Vol] 5.22 mg/dL High 0.70-1.20 [facility] Comment on above: Order Comment: 412.2 Performed By: #### L 100.0100, L300.3900, L500.4050 #### [facility] [address] [place], [address] GAP 16 High 5-15 [facility] Comment on above: Order Comment: 412.2 Performed By: #### L 100.0100, L300.3900, L500.4050 #### [facility] [address] [place], [address] GFR/1.73 sq M.predicted among non-blacks MDRD (S/P/Bld) [Vol rate/Area] 12 mL/min/{1.73_m2} Low >60 [facility] Comment on above: Order Comment: 412.2 Result Comment: mL/m in/1.73m2 CKD-EPI Creatinine Equation (2020) Performed By: #### L 100.0100, L300.3900, L500.4050 #### [facility] [address] [place], [address] Globulin (S) [Mass/Vol] 4.4 g/dL High 2.2-4.2 [facility] Comment on above: Order Comment: 412.2 Performed By: #### L 100.0100, L300.3900, L500.4050 #### [facility] [address] [place], [address] Glucose [Mass/Vol] 91 mg/dL Normal 70-99 [facility] Comment on above: Order Comment: 412.2 Performed By: #### L 100.0100, L300.3900, L500.4050 #### [facility] [address] [place], [address] Potassium [Moles/Vol] 6.1 mmol/L Invalid Interpretation Code 3.3-5.1 [facility] Comment on above: Order Comment: 412.2 Result Comment: Crit ical Result(s) Called to: Cindy PITT ([facility]) by: Ella??Results read back by same. Performed By: #### L 100.0100, L300.3900, L500.4050 #### [facility] [address] [place], [address] Sodium [Moles/Vol] 134 mmol/L Normal 133-145 [facility] Comment on above: Order Comment: 412.2 Performed By: #### L 100.0100, L300.3900, L500.4050 #### [facility] [address] [place], [address] T PROT 7.5 g/dL Normal 5.9-8.4 [facility] Comment on above: Order Comment: 412.2 Performed By: #### L 100.0100, L300.3900, L500.4050 #### [facility] [address] [place], [address] Urea nitrogen [Mass/Vol] 68 mg/dL High 4-19 [facility] Comment on above: Order Comment: 412.2 Performed By: #### L 100.0100, L300.3900, L500.4050 #### [facility] [address] [place], [address] Prothrombin Time w/INRon INR Coag (PPP) [Relative time] 7.7 {INR} Invalid Interpretation Code [facility] Comment on above: Order Comment: 412.2 Performed By: #### L 100.0100, L300.3900, L500.4050 #### [facility] [address] [place], [address] PT Coag (PPP) [Time] 66.6 s High 11.7-14.9 [facility] Comment on above: Order Comment: 412.2 Performed By: #### L 100.0100, L300.3900, L500.4050 #### [facility] [address] [place], [address] Prothrombin Time w/INRon INR Coag (PPP) [Relative time] 3.7 {INR} Normal [facility] Comment on above: Order Comment: 412.2 Performed By: #### L 100.0100, L300.3900, L500.4050 #### [facility] [address] [place], [address] PT Coag (PPP) [Time] 37.3 s High 11.7-14.9 [facility] Comment on above: Order Comment: 412.2 Performed By: #### L 100.0100, L300.3900, L500.4050 #### [facility] [address] [place], [address] BASIC METABOLIC PANELon 07- Anion gap [Moles/Vol] 14 mmol/L High 3-13 [facility] Comment on above: Performed By: #### L AB15 ####Filing Clerk: FENG CONSTANTINO ([phone])[facility] (SBAB)[address] Calcium [Mass/Vol] 9.6 mg/dL Normal 8.4-10.2 [facility] Comment on above: Performed By: #### L AB15 ####Filing Clerk: FENG CONSTANTINO ([phone])[facility] (HLAB)[address] Chloride [Moles/Vol] 96 mmol/L Low 98-107 [facility] Comment on above: Performed By: #### L AB15 ####Filing Clerk: FENG CONSTANTINO ([phone])[facility] (SBHLAB)[address] CO2 [Moles/Vol] 26 mmol/L Normal 22-29 [facility] Comment on above: Performed By: #### L AB15 ####Filing Clerk: FENG CONSTANTINO ([phone])[facility] (SBHLAB)[address] Creatinine [Mass/Vol] 3.07 mg/dL High 0.72-1.25 [facility] Comment on above: Performed By: #### L AB15 ####Filing Clerk: FENG CONSTANTINO ([phone])[facility] GLOMERULAR FILTRATION RATE ML/MIN/1.73 SQ M.PREDICTED 22.6 mL/min/1.73m*2 Low >60.0 [facility] Comment on above: Result Comment: Calc ulation based on the Chronic Kidney Disease Epidemiology Collaboration (CKD-EPI) equation refit without adjustment for race Performed By: #### L AB15 ####Filing Clerk: FENG CONSTANTINO ([phone])[facility] (SBHLAB)[address] Glucose [Mass/Vol] 80 mg/dL Normal 74-100 [facility] Comment on above: Performed By: #### L AB15 ####Filing Clerk: FENG CONSTANTINO ([phone])[facility] (SBHLAB)[address] Potassium [Moles/Vol] 4.6 mmol/L Normal 3.5-5.1 [facility] Comment on above: Result Comment: [facility] potassium values may be up to 0.5 mmol/L lower than serum values. Performed By: #### L AB15 ####Filing Clerk: FENG CONSTANTINO ([phone])[facility] (SBHLAB)[address] Sodium [Moles/Vol] 136 mmol/L Normal 136-145 [facility] Comment on above: Performed By: #### L AB15 ####Filing Clerk: FENG CONSTANTINO ([phone])[facility] (SBHLAB)[address] Urea nitrogen [Mass/Vol] 33 mg/dL High 9-23 [facility] Comment on above: Performed By: #### L AB15 ####Filing Clerk: FENG CONSTANTINO ([phone])[facility] (SBHLAB)[address] Basic metabolic 1998 panelon 04-09-2025 Anion gap [Moles/Vol] 14 mmol/L High 3 - 13 mmol/L [facility] Calcium [Mass/Vol] 9.6 mg/dL 8.4 - 10. 2 mg/dL [facility] Chloride [Moles/Vol] 96 mmol/L Low 98 - 10 7 mmol/L [facility] CO2 [Moles/Vol] 26 mmol/L 22 - 29 mmol/L [facility] Creatinine [Mass/Vol] 3.07 mg/dL High 0.72 - 1.25 mg/dL [facility] GFR/1.73 sq M.predicted (S/P/Bld) [Vol rate/Area] 22.6 mL/min Low - PINF [facility] Comment on above: Calculation based on the Chronic Kidney Disease Epidemiology Collaboration (CKD-EPI) equation refit without adjustment for race Glucose [Mass/Vol] 80 mg/dL 74 - 100 mg/dL [facility] Interpretation and review of laboratory results Abnormal [facility] Potassium [Moles/Vol] 4.6 mmol/L 3.5 - 5.1 mmol/L [facility] Comment on above: Plasma potassium macey ues may be up to 0.5 mmol/L lower than serum values. Sodium [Moles/Vol] 136 mmol/L 136 - 145 mmol/L [facility] Urea nitrogen [Mass/Vol] 33 mg/dL High 9 - 23 mg/d L [facility] CBC W Auto Differential pane l (Bld)on 04-09-2025 Basophils (Bld) [#/Vol] 0.1 10*3/uL 0.0 - 0.2 10*3/uL [facility] Basophils/100 WBC (Bld) 1.2 % 0.0 - 2.0 % [facility] Eosinophils (Bld) [#/Vol] 0.3 10*3/uL 0.0 - 0.5 10*3/uL [facility] Eosinophils/100 WBC (Bld) 3.3 % 0.0 - 6.0 % [facility] Erythrocyte distribution width (RBC) [Ratio] 15.9 % High 11.5 - 15.0 % [facility] Hematocrit (Bld) [Volume fraction] 29.3 % Low 40.0 - 52.0 % [facility] Hemoglobin (Bld) [Mass/Vol] 9.5 g/dL Low 13.0 - 18.0 g/dL [facility] Immature granulocytes (Bld) [#/Vol] 0 10*3/uL NINF - 0.1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 9.0-12.7 [facility] Comment on above: Performed By: #### L [id number] ####Filing Clerk: FENG CONSTANTINO ([phone])[facility] [place] (SBHLAB)[address] Platelets (Bld) [#/Vol] 329 10*3/uL Normal 140-440 [facility] Comment on above: Performed By: #### L [id number] ####Filing Clerk: FENG CONSTANTINO ([phone])[facility] ([facility])[address] RBC (Bld) [#/Vol] 3.15 10*6/uL Low 4.40-5.90 [facility] Comment on above: Performed By: #### L [id number] ####Filing Clerk: FENG CONSTANTINO ([phone])[facility] [place] ([facility]AB)[address] WBC (Bld) [#/Vol] 6.8 10*3/uL Normal 3.6-10.7 [facility] Comment on above: Performed By: #### L [id number] ####Filing Clerk: FENGLINO CONSTANTINO ([phone])[facility] [place] (SB[facility]AB)[address] ECG 12-LEADon 04-05-2025 ECG 12-LEAD IMPRESSION: Atrial flutter with varied AV block, Right axis deviation Repol abnrm, severe global ischemia (LM/MVD) Prolonged QT interval Electronically Signed On 04-05-2025 10:13:24 EDT by Dieter Villegas Normal [facility] ED Nursing Noteon 04-05-2025 ED Nursing Note Dialysis at bedside. Normal [facility] ED Nursing Note Pt has no complaints at this time. Normal [facility] ED Nursing Note Normal [facility] ED Provider Noteon ED Provider Note Normal [facility] HIGH SENSITIVITY TROPONIN, S ERIAL BASELINEon 04-05-2025 TROPONIN HS SERIAL BASELINE 36 ng/L High <=35 [facility] Comment on above: Result Comment: In i ndividuals presenting with symptoms > 2h, a baseline troponin <= 5 ng/L suggests acutecardiac injury is unlikely and further serial testing is generally not indicated. Performed By: #### L [id number], [id number] ####Filing Clerk: FENG CONSTANTINO ([phone])[facility] (SBHLAB)[address] [place] [address] [place] HIGH SENSITIVITY TROPONIN, S ERIAL, SECOND TESTon 04-05-2025 2H TROPONIN HS (SERIAL 2ND TROPONIN) 29 ng/L Normal <=35 [facility] Comment on above: Result Comment: Risi ng or falling troponin delta between 2 ??? 15 ng/L as compared to baseline value requires a 3rd serial troponin Performed By: #### L [id number] ####Filing Clerk: FENG CONSTANTINO ([phone])[facility] ([facility])[address] Laboratory - Coagulationon 0 04-05-2025 PT Coag (Bld) [Time] 26.3 s High 9.0 - 12.0 s [facility] No Panel Informationon 04-05 2h Troponin HS (Serial 2nd Troponin) 29 ng/L NINF - 35 ng/L [facility] Comment on above: Rising or falling tr oponin delta between 2 15 ng/L as compared to baseline value requires a 3rd serial troponin Interpretation and review of laboratory results Normal [facility] Interpretation and review of laboratory results Abnormal [facility] Troponin HS Serial Baseline 36 ng/L High NINF - 35 ng/L [facility] Comment on above: In individuals prese nting with symptoms > 2h, a baseline troponin <= 5 ng/L suggests acute cardiac injury is unlikely and further serial testing is generally not indicated. [facility] P [place] 0 degrees [facility] [place] Interval 0 ms [facility] QRS [place] 101 degrees [facility] QRSD Interval 102 ms [facility] QT Interval 361 ms [facility] QTC Interval 510 ms [facility] T Wave [place] 0 degrees [facility] Atrial flutter with varied AV block, Right axis deviation Repol abnrm, severe global ischemia (LM/MVD) Prolonged QT interval Electronically Signed On 04-05-2025 10:13:24 EDT by Dieter Linn MD - 04/05/2025 IMPRESSION: Atrial flutter with varied AV block, Right axis deviation Repol abnrm, severe global ischemia (LM/MVD) Prolonged QT interval Electronically Signed On 04-05-2025 10:13:24 EDT by Dieter Villegas [facility] Nursing Noteon 04-05-2025 Nursing Note Normal [facility] PROTHROMBIN TIMEon INR Coag (PPP) [Relative time] 2.6 {INR} High 0.9-1.1 [facility] Comment on above: Result Comment: Vaughn [...] Myocardial Infarction Performed By: #### Tameka [id number] ####Filing Clerk: FENG CONSTANTINO ([phone])[facility] ([facility])[address] [place] [address] PT Coag (PPP) [Time] 26.3 s High 9.0-12.0 [facility] Comment on above: Performed By: #### Tameka [id number] ####Filing Clerk: FENG CONSTANTINO ([phone])[facility] ([facility])[address] [place] [address] PT Coag (Bld) [Time]on 04-05 INR Coag (PPP) [Relative time] 2.6 {INR} High 0.9 - 1.1 [facility] Comment on above: Recommended Anticoag ulant [...] Interpretation and review of laboratory results Abnormal [facility] Protime w/INR Fingerstickon 04-05-2025 INR Coag (PPP) [Relative time] 2.7 {INR} Normal [facility] Comment on above: Result Comment: Crit ical Value > 4.0 Performed By: #### L 100.0100, L300.3900, L500.4050 #### [facility] [address] [place], [address] Protime [place] 28.2 SEC High 11.7-14.9 [facility] Comment on above: Performed By: #### L 100.0100, L300.3900, L500.4050 #### [facility] [address] [place], [address] Vital signson 04-05-2025 Heart rate 120 /[facility] b[facility] 2 Viewson Cardiomegaly with median [...] Electronically Signed Date/Time: 04/05/2025 11:36 AM EDT [facility] [email or web address] SYSTEM Patient Name: JUN SNYDER : 1965 [facility]omet#: [id number] Exam Date/Time: 04/05/2025 10:17 Procedure: XR CHEST [...] the spine are present at multiple levels. [facility] Devonte Bocanegra MD - 04/05/2025 Patient Name: [...] Electronically Signed Date/Time: 04/05/2025 11:36 AM EDT [facility] Radiology Study observation (narrative) [facility] Chest 2 ViewsOrdered By: Devonte Bocanegra on 04-05-2025 [facility] Work Phone: 36on 04-04-2025 36 noted Normal [facility] 36 Normal [facility] 36 Patient is still in facility. I spoke with his nurse, Chandrika, and she stated that he is suppose to be discharging around 04/26. She is not sure where he will be going. I will call pantry cook to that date and speak with the social media analyst. Normal [facility] 36on 04-02-2025 36 Called patient to confirm appointment with Maryann in [place] 04/03/25, and he is at [facility]. Spoke to Rosa and left message for nurse to call about appointment. Normal [facility] CBC W/Diff, Automatedon 07-0 7-2024 Absolute Lymph 0.83 X10 3/uL Normal 0.83-4.51 [facility] Comment on above: Order Comment: 412.2 Performed By: #### L 100.0100, L300.3900, L500.4050 #### [facility] [address] [place], [address] Absolute Neut 4.2 X10 3/uL Normal 2.0-7.7 [facility] Comment on above: Order Comment: 412.2 Performed By: #### L 100.0100, L300.3900, L500.4050 #### [facility] [address] [place], [address] Basophils/100 WBC (Bld) 1.9 % High 0-1 [facility] Comment on above: Order Comment: 412.2 Performed By: #### L 100.0100, L300.3900, L500.4050 #### [facility] [address] [place], [address] Eosinophils/100 WBC (Bld) 3.5 % Normal 0-5 [facility] Comment on above: Order Comment: 412.2 Performed By: #### L 100.0100, L300.3900, L500.4050 #### [facility] [address] [place], [address] Erythrocyte distribution width (RBC) [Ratio] 16.3 % High 11.6-14.6 [facility] Comment on above: Order Comment: 412.2 Performed By: #### L 100.0100, L300.3900, L500.4050 #### [facility] [address] [place], [address] Hematocrit (Bld) [Volume fraction] 32.8 % Low 40-54 [facility] Comment on above: Order Comment: 412.2 Performed By: #### L 100.0100, L300.3900, L500.4050 #### [facility] [address] [place], [address] Hemoglobin (Bld) [Mass/Vol] 10.1 g/dL Low 13.0-16.5 [facility] Comment on above: Order Comment: 412.2 Performed By: #### L 100.0100, L300.3900, L500.4050 #### [facility] [address] [place], [address] IG% 0.500 Normal 0.0-0.9 [facility] Comment on above: Order Comment: 412.2 Result Comment: IG% - Immature Granulocytes (promyelocytes, myelocytes and metamyelocytes) > 1% indicates that a LEFT SHIFT is Present. Performed By: #### L 100.0100, L300.3900, L500.4050 #### [facility] [address] [place], [address] Lymphocytes/100 WBC (Bld) 13.2 % Low 19-41 [facility] Comment on above: Order Comment: 412.2 Performed By: #### L 100.0100, L300.3900, L500.4050 #### [facility] [address] [place], [address] MCH (RBC) [Entitic mass] 30.1 pg Normal 27.0-32.0 [facility] Comment on above: Order Comment: 412.2 Performed By: #### L 100.0100, L300.3900, L500.4050 #### [facility] [address] [place], [address] MCHC (RBC) [Mass/Vol] 30.8 g/dL Low 32-36 [facility] Comment on above: Order Comment: 412.2 Performed By: #### L 100.0100, L300.3900, L500.4050 #### [facility] [address] [place], [address] MCV (RBC) [Entitic vol] 97.6 fL High 80-94 [facility] Comment on above: Order Comment: 412.2 Performed By: #### L 100.0100, L300.3900, L500.4050 #### [facility] [address] [place], [address] Monocytes/100 WBC (Bld) 14.3 % High 0-10 [facility] Comment on above: Order Comment: 412.2 Performed By: #### L 100.0100, L300.3900, L500.4050 #### [facility] [address] [place], [address] Neutrophils/100 WBC (Bld) 66.6 % Normal 47-70 [facility] Comment on above: Order Comment: 412.2 Performed By: #### L 100.0100, L300.3900, L500.4050 #### [facility] [address] [place], [address] Nucleated RBC (Bld) [#/Vol] 0 10*3/uL Normal 0-5 [facility] Comment on above: Order Comment: 412.2 Performed By: #### L 100.0100, L300.3900, L500.4050 #### [facility] [address] [place], [address] Platelet mean volume (Bld) [Entitic vol] 9.4 fL Normal 6.2-12.0 [facility] Comment on above: Order Comment: 412.2 Performed By: #### L 100.0100, L300.3900, L500.4050 #### [facility] [address] [place], [address] Platelets (Bld) [#/Vol] 383 10*3/uL Normal 150-450 [facility] Comment on above: Order Comment: 412.2 Performed By: #### L 100.0100, L300.3900, L500.4050 #### [facility] [address] [place], [address] RBC (Bld) [#/Vol] 3.36 10*6/uL Low 4.6-6.2 [facility] Comment on above: Order Comment: 412.2 Performed By: #### L 100.0100, L300.3900, L500.4050 #### [facility] [address] [place], [address] RDW SD 58.6 fl High 35.1-43.9 [facility] Comment on above: Order Comment: 412.2 Performed By: #### L 100.0100, L300.3900, L500.4050 #### [facility] [address] [place], [address] WBC (Bld) [#/Vol] 6.3 10*3/uL Normal 4.4-11.0 [facility] Comment on above: Order Comment: 412.2 Performed By: #### L 100.0100, L300.3900, L500.4050 #### [facility] [address] [place], [address] Comprehensive [facility] 04-02-2025 Albumin [Mass/Vol] 3.2 g/dL Low 3.5-5.0 [facility] Comment on above: Order Comment: 412.2 Performed By: #### L 100.0100, L300.3900, L500.4050 #### [facility] [address] [place], [address] Albumin/Globulin [Mass ratio] 0.8 {ratio} Low 0.9-2.4 [facility] Comment on above: Order Comment: 412.2 Performed By: #### L 100.0100, L300.3900, L500.4050 #### [facility] [address] [place], [address] ALK PHOS 229 U/L High 40-129 [facility] Comment on above: Order Comment: 412.2 Performed By: #### L 100.0100, L300.3900, L500.4050 #### [facility] [address] [place], [address] ALT [Catalytic activity/Vol] 20 U/L Normal <=46 [facility] Comment on above: Order Comment: 412.2 Performed By: #### L 100.0100, L300.3900, L500.4050 #### [facility] [address] [place], [address] AST [Catalytic activity/Vol] 46 U/L High <=37 [facility] Comment on above: Order Comment: 412.2 Performed By: #### L 100.0100, L300.3900, L500.4050 #### [facility] [address] [place], [address] Bilirubin [Mass/Vol] 0.74 mg/dL Normal 0.00-1.30 [facility] Comment on above: Order Comment: 412.2 Performed By: #### L 100.0100, L300.3900, L500.4050 #### [facility] [address] [place], [address] BUN/CRE 8.2 RATIO Low 10-20 [facility] Comment on above: Order Comment: 412.2 Performed By: #### L 100.0100, L300.3900, L500.4050 #### [facility] [address] [place], [address] Calcium [Mass/Vol] 9.9 mg/dL Normal 7.6-11.0 [facility] Comment on above: Order Comment: 412.2 Performed By: #### L 100.0100, L300.3900, L500.4050 #### [facility] [address] [place], [address] Chloride [Moles/Vol] 98 mmol/L Normal 98-108 [facility] Comment on above: Order Comment: 412.2 Performed By: #### L 100.0100, L300.3900, L500.4050 #### [facility] [address] [place], [address] CO2 [Moles/Vol] 25.9 mmol/L Normal 21.0-32.0 [facility] Comment on above: Order Comment: 412.2 Performed By: #### L 100.0100, L300.3900, L500.4050 #### [facility] [address] [place], [address] Creatinine [Mass/Vol] 5.14 mg/dL High 0.70-1.20 [facility] Comment on above: Order Comment: 412.2 Performed By: #### L 100.0100, L300.3900, L500.4050 #### [facility] [address] [place], [address] GAP 12 Normal 5-15 [facility] Comment on above: Order Comment: 412.2 Performed By: #### L 100.0100, L300.3900, L500.4050 #### [facility] [address] [place], [address] GFR/1.73 sq M.predicted among non-blacks MDRD (S/P/Bld) [Vol rate/Area] 12 mL/min/{1.73_m2} Low >60 [facility] Comment on above: Order Comment: 412.2 Result Comment: mL/m in/1.73m2 CKD-EPI Creatinine Equation (2020) Performed By: #### L 100.0100, L300.3900, L500.4050 #### [facility] [address] [place], [address] Globulin (S) [Mass/Vol] 4.2 g/dL Normal 2.2-4.2 [facility] Comment on above: Order Comment: 412.2 Performed By: #### L 100.0100, L300.3900, L500.4050 #### [facility] [address] [place], [address] Glucose [Mass/Vol] 84 mg/dL Normal 70-99 [facility] Comment on above: Order Comment: 412.2 Performed By: #### L 100.0100, L300.3900, L500.4050 #### [facility] [address] [place], [address] Potassium [Moles/Vol] 5.6 mmol/L High 3.3-5.1 [facility] Comment on above: Order Comment: 412.2 Performed By: #### L 100.0100, L300.3900, L500.4050 #### [facility] [address] [place], [address] Sodium [Moles/Vol] 136 mmol/L Normal 133-145 [facility] Comment on above: Order Comment: 412.2 Performed By: #### L 100.0100, L300.3900, L500.4050 #### [facility] [address] [place], [address] T PROT 7.5 g/dL Normal 5.9-8.4 [facility] Comment on above: Order Comment: 412.2 Performed By: #### L 100.0100, L300.3900, L500.4050 #### [facility] [address] [place], [address] Urea nitrogen [Mass/Vol] 42 mg/dL High 4-19 [facility] Comment on above: Order Comment: 412.2 Performed By: #### L 100.0100, L300.3900, L500.4050 #### [facility] [address] [place], [address] Prothrombin Time w/INRon INR Coag (PPP) [Relative time] 2.1 {INR} Normal [facility] Comment on above: Order Comment: 412.2 Performed By: #### L 100.0100, L300.3900, L500.4050 #### [facility] [address] [place], [address] PT Coag (PPP) [Time] 23.9 s High 11.7-14.9 [facility] Comment on above: Order Comment: 412.2 Performed By: #### L 100.0100, L300.3900, L500.4050 #### [facility] [address] [place], [address] Prothrombin Time w/INRon INR Coag (PPP) [Relative time] 3.4 {INR} Normal [facility] Comment on above: Performed By: #### L 100.0100, L300.3900, L500.4050 #### [facility] [address] [place], [address] PT Coag (PPP) [Time] 35.4 s High 11.7-14.9 [facility] Comment on above: Performed By: #### L 100.0100, L300.3900, L500.4050 #### [facility] [address] [place], [address] 36on 03-26-2025 36 3rd attempt unable to speak to Sabino she's not in the office at them moment. Left message to call the office back to schedule Normal [facility] 36 Sabino has been notified the visit can not be virtual Normal [facility] 36 Name of Caller: SabinoMitzy Moncada Contact Reason for Appointment: Change 04/05/25 hospital follow up to a vv. Please call and advise. Office Name: [facility] Neurology Cindy [facility] CBC W/Diff, Automatedon 02-27 Anisocytosis Ql (Bld) 1+ Normal [facility] Comment on above: Order Comment: 412.2 Performed By: #### L 100.0100, L300.3900, L500.4050 #### [facility] [address] [place], [address] Comprehensive Metabolic Prof ilon 03-26-2025 Albumin [Mass/Vol] 3.2 g/dL Low 3.5-5.0 [facility] Comment on above: Order Comment: 412.2 Performed By: #### L 100.0100, L300.3900, L500.4050 #### [facility] [address] [place], [address] Albumin/Globulin [Mass ratio] 0.8 {ratio} Low 0.9-2.4 [facility] Comment on above: Order Comment: 412.2 Performed By: #### L 100.0100, L300.3900, L500.4050 #### [facility] [address] [place], [address] ALK PHOS 238 U/L High 40-129 [facility] Comment on above: Order Comment: 412.2 Performed By: #### L 100.0100, L300.3900, L500.4050 #### [facility] [address] [place], [address] ALT [Catalytic activity/Vol] 21 U/L Normal <=46 [facility] Comment on above: Order Comment: 412.2 Performed By: #### L 100.0100, L300.3900, L500.4050 #### [facility] [address] [place], [address] AST [Catalytic activity/Vol] 53 U/L High <=37 [facility] Comment on above: Order Comment: 412.2 Performed By: #### L 100.0100, L300.3900, L500.4050 #### [facility] [address] [place], [address] Bilirubin [Mass/Vol] 0.58 mg/dL Normal 0.00-1.30 [facility] Comment on above: Order Comment: 412.2 Performed By: #### L 100.0100, L300.3900, L500.4050 #### [facility] [address] [place], [address] BUN/CRE 6.9 RATIO Low 10-20 [facility] Comment on above: Order Comment: 412.2 Performed By: #### L 100.0100, L300.3900, L500.4050 #### [facility] [address] [place], [address] Calcium [Mass/Vol] 9.6 mg/dL Normal 7.6-11.0 [facility] Comment on above: Order Comment: 412.2 Performed By: #### L 100.0100, L300.3900, L500.4050 #### [facility] [address] [place], [address] Chloride [Moles/Vol] 102 mmol/L Normal 98-108 [facility] Comment on above: Order Comment: 412.2 Performed By: #### L 100.0100, L300.3900, L500.4050 #### [facility] [address] [place], [address] CO2 [Moles/Vol] 22.8 mmol/L Normal 21.0-32.0 [facility] Comment on above: Order Comment: 412.2 Performed By: #### L 100.0100, L300.3900, L500.4050 #### [facility] [address] [place], [address] Creatinine [Mass/Vol] 5.21 mg/dL High 0.70-1.20 [facility] Comment on above: Order Comment: 412.2 Performed By: #### L 100.0100, L300.3900, L500.4050 #### [facility] [address] [place], [address] GAP 14 Normal 5-15 [facility] Comment on above: Order Comment: 412.2 Performed By: #### L 100.0100, L300.3900, L500.4050 #### [facility] [address] [place], [address] GFR/1.73 sq M.predicted among non-blacks MDRD (S/P/Bld) [Vol rate/Area] 12 mL/min/{1.73_m2} Low >60 [facility] Comment on above: Order Comment: 412.2 Result Comment: mL/m in/1.73m2 CKD-EPI Creatinine Equation (2020) Performed By: #### L 100.0100, L300.3900, L500.4050 #### [facility] [address] [place], [address] Globulin (S) [Mass/Vol] 4.1 g/dL Normal 2.2-4.2 [facility] Comment on above: Order Comment: 412.2 Performed By: #### L 100.0100, L300.3900, L500.4050 #### [facility] [address] [place], [address] Glucose [Mass/Vol] 87 mg/dL Normal 70-99 [facility] Comment on above: Order Comment: 412.2 Performed By: #### L 100.0100, L300.3900, L500.4050 #### [facility] [address] [place], [address] Potassium [Moles/Vol] 4.9 mmol/L Normal 3.3-5.1 [facility] Comment on above: Order Comment: 412.2 Performed By: #### L 100.0100, L300.3900, L500.4050 #### [facility] [address] [place], [address] Sodium [Moles/Vol] 139 mmol/L Normal 133-145 [facility] Comment on above: Order Comment: 412.2 Performed By: #### L 100.0100, L300.3900, L500.4050 #### [facility] [address] [place], [address] T PROT 7.2 g/dL Normal 5.9-8.4 [facility] Comment on above: Order Comment: 412.2 Performed By: #### L 100.0100, L300.3900, L500.4050 #### [facility] [address] [place], [address] Urea nitrogen [Mass/Vol] 36 mg/dL High 4-19 [facility] Comment on above: Order Comment: 412.2 Performed By: #### L 100.0100, L300.3900, L500.4050 #### [facility] [address] [place], [address] Prothrombin Time w/INRon INR Coag (PPP) [Relative time] 3.3 {INR} Normal [facility] Comment on above: Order Comment: 412.2 Performed By: #### L 100.0100, L300.3900, L500.4050 #### [facility] [address] [place], [address] PT Coag (PPP) [Time] 34.4 s High 11.7-14.9 [facility] Comment on above: Order Comment: 412.2 Performed By: #### L 100.0100, L300.3900, L500.4050 #### [facility] [address] [place], [address] 36on 03-22-2025 36 Patient discharged to [facility] on 03/21 - please follow [facility] [employer] normalized rat io (INR) calculationOrdered By: Kayley Melendrez on 03-22-2025 INR Coag (Bld) [Relative time] 2.9 {INR} [facility] Prothrombin Time w/INRon INR Coag (PPP) [Relative time] 2.9 {INR} [facility] Comment on above: Performed By: #### L 300.3900 #### [facility] [address] [place], [place], [address] PT Coag (PPP) [Time] 30.7 s High 11.7-14.9 [facility] Comment on above: Performed By: #### L 300.3900 #### [facility] [address] [place], [place], [address] Prothrombin timeOrdered By: Kayley Melendrez on 03-22-2025 PT Coag (PPP) [Time] 30.7 s High 11.7-14.9 [facility] 30on 03-21-2025 30 Normal [facility] [id number] 03-21-2025 [id number] [facility] [id number] MAR, Labs & Discharge med list [facility] via [employer] per TCC request. Electronically signed by NELSON Rodrigues [facility] [id number] [facility] [id number] [facility] APTTon 03-21-2025 aPTT Coag (Bld) [Time] 50.7 s High 20.0-30.5 [facility] Comment on above: Result Comment: ARPAN Kaplan COMMENTS:NOTE: The therapeutic time for Heparin anticoagulation, based on Xa activity inhibition, is an APTT of 46-80 seconds. Performed By: #### L AB320, [id number] ####Filing Clerk: DOMENICA JARA ([phone])[facility] ([address] CBC (HEMOGRAM)on 06-25-2025 Erythrocyte distribution width (RBC) [Ratio] 19.9 % High 11.5-15.0 [facility] Comment on above: Performed By: #### L AB294 ####Filing Clerk: DOMENICA JARA ([phone])[facility])[address] [place] [address] Hematocrit (Bld) [Volume fraction] 29.2 % Low 40.0-52.0 [facility] Comment on above: Performed By: #### L AB294 ####Filing Clerk: DOMENICA JARA ([phone])[facility])[address] [place] [address] Hemoglobin (Bld) [Mass/Vol] 8.8 g/dL Low 13.0-18.0 [facility] Comment on above: Performed By: #### L AB294 ####Filing Clerk: DOMENICA JARA ([phone])[address] MCH (RBC) [Entitic mass] 30.2 pg Normal 26.0-34.0 [facility] Comment on above: Performed By: #### L AB294 ####Filing Clerk: DOMENICA JARA ([phone])[facility])[address] [place] [address] MCHC 30.1 % Low 30.5-36.0 [facility] Comment on above: Performed By: #### L AB294 ####Filing Clerk: DOMENICA JARA ([phone])[facility])[address] [place] [address] MCV (RBC) [Entitic vol] 100.3 fL High 77.0-99.0 [facility] Comment on above: Performed By: #### L AB294 ####Filing Clerk: DOMENICA JARA ([phone])[facility])[address] [place] [address] Platelet mean volume (Bld) [Entitic vol] 8.9 fL Low 9.0-12.7 [facility] Comment on above: Performed By: #### L AB294 ####Filing Clerk: DOMENICA JARA ([phone])[facility] ([facility])[address] [place] [address] Platelets (Bld) [#/Vol] 271 10*3/uL Normal 140-440 [facility] Comment on above: Performed By: #### L AB294 ####Filing Clerk: DOMENICA JARA ([phone])[facility] ([facility])[address] [place] [address] RBC (Bld) [#/Vol] 2.91 10*6/uL Low 4.40-5.90 [facility] Comment on above: Performed By: #### L AB294 ####Filing Clerk: DOMENICA JARA ([phone])[facility] ([facility])[address] [place] [address] WBC (Bld) [#/Vol] 8.0 10*3/uL Normal 3.6-10.7 [facility] Comment on above: Performed By: #### L AB294 ####Filing Clerk: DOMENICA JARA ([phone])[facility] ([facility])[address] [place] [address] CBC panel Auto (Bld)on 03-21 Erythrocyte distribution width (RBC) [Ratio] 19.9 % High 11.5 - 15.0 % [facility] Hematocrit (Bld) [Volume fraction] 29.2 % Low 40.0 - 52.0 % [facility] Hemoglobin (Bld) [Mass/Vol] 8.8 g/dL Low 13.0 - 18.0 g/dL [facility] Interpretation and review of laboratory results Abnormal [facility] MCH (RBC) [Entitic mass] 30.2 pg 26. 0 - 34.0 pg [facility] MCHC (RBC) [Mass/Vol] 30.1 % Low 30.5 - 36.0 % [facility] MCV (RBC) [Entitic vol] 100.3 fL High 77.0 - 99.0 fL [facility] [employer] Platelet mean volume (Bld) [Entitic vol] 8.9 fL Low 9.0 - 12.7 fL [facility] Platelets (Bld) [#/Vol] 271 10*3/uL 140 - 440 10*3/uL [facility] RBC (Bld) [#/Vol] 2.91 10*6/uL Low 4.40 - 5.9 0 10*6/uL [facility] WBC (Bld) [#/Vol] 8 10*3/uL 3.6 - 10.7 10*3/uL [facility] COMPREHENSIVE METABOLIC PANE Victor M 03-21-2025 Albumin [Mass/Vol] 2.0 g/dL Low 3.5-5.0 [facility] Comment on above: Performed By: #### L AB17, [id number] ####Filing Clerk: DOMENICA JARA ([phone])[facility])[address] [place] [address] ALP [Catalytic activity/Vol] 217 U/L High 40-150 [facility] Comment on above: Performed By: #### L AB17, [id number] ####Filing Clerk: DOMENICA JARA ([phone])[facility] ([facility])[address] [place] [address] ALT [Catalytic activity/Vol] 13 U/L Normal <40 [facility] Comment on above: Performed By: #### L AB17, [id number] ####Filing Clerk: DOMENICA JARA ([phone])[facility] ([facility])[address] [place] [address] Anion gap [Moles/Vol] 8 mmol/L Normal 3-13 [facility] Comment on above: Performed By: #### L AB17, [id number] ####Filing Clerk: DOMENICA JARA ([phone])[facility] ([facility])[address] [place] [address] [place] AST [Catalytic activity/Vol] 59 U/L High <34 [facility] Comment on above: Performed By: #### L AB17, [id number] ####Filing Clerk: DOMENICA JARA ([phone])[facility])[address] [place] [address] Bilirubin [Mass/Vol] 0.9 mg/dL Normal <1.2 [facility] Comment on above: Performed By: #### L AB17, [id number] ####Filing Clerk: DOMENICA JARA ([phone])[facility])[address] [place] [address] Calcium [Mass/Vol] 9.0 mg/dL Normal 8.4-10.2 [facility] Comment on above: Performed By: #### L AB17, [id number] ####Filing Clerk: DOMENICA JARA ([phone])[facility] [place] [address] Chloride [Moles/Vol] 99 mmol/L Normal 98-107 [facility] Comment on above: Performed By: #### L AB17, [id number] ####Filing Clerk: DOMENICA JARA ([phone])[facility] ([facility])[address] [place] [address] [place] CO2 [Moles/Vol] 27 mmol/L Normal 22-29 [facility] Comment on above: Performed By: #### L AB17, [id number] ####Filing Clerk: DOMENICA JARA ([phone])[facility] ([facility])[address] [place] [address] Creatinine [Mass/Vol] 3.36 mg/dL High 0.72-1.25 [facility] Comment on above: Performed By: #### L AB17, [id number] ####Filing Clerk: DOMENICA JARA ([phone])[facility])[address] [place] [address] [place] GLOMERULAR FILTRATION RATE ML/MIN/1.73 SQ M.PREDICTED 20.2 mL/min/1.73m*2 Low >60.0 [facility] Comment on above: Result Comment: Calc ulation based on the Chronic Kidney Disease Epidemiology Collaboration (CKD-EPI) equation refit without adjustment for race Performed By: #### L AB17, [id number] ####Filing Clerk: DOMENICA JARA ([phone])[facility] ([facility])[address] [place] [address] [place] Glucose [Mass/Vol] 91 mg/dL Normal 74-100 [facility] Comment on above: Performed By: #### L AB17, [id number] ####Filing Clerk: DOMENICA JARA ([phone])[facility])[address] [place] [address] [place] Potassium [Moles/Vol] 5.0 mmol/L Normal 3.5-5.1 [facility] Comment on above: Result Comment: [facility] potassium values may be up to 0.5 mmol/L lower than serum values. Performed By: #### L AB17, [id number] ####Filing Clerk: DOMENICA JARA ([phone])[facility] ([facility])[address] [place] [address] Protein [Mass/Vol] 7.2 g/dL Normal 6.4-8.3 [facility] Comment on above: Performed By: #### L AB17, [id number] ####Filing Clerk: DOMENICA JARA ([phone])[facility] ([facility])[address] [place] [address] [place] Sodium [Moles/Vol] 134 mmol/L Low 136-145 [facility] Comment on above: Performed By: #### L AB17, [id number] ####Filing Clerk: DOMENICA JARA ([phone])[facility] ([facility])[address] [place] [address] [place] Urea nitrogen [Mass/Vol] 24 mg/dL High 9-23 [facility] Comment on above: Performed By: #### L AB17, [id number] ####Filing Clerk: DOMENICA JARA ([phone])[facility])[address] [place] [address] Comprehensive metabolic 1998 panelon 03-21-2025 Albumin [Mass/Vol] 2 g/dL Low 3.5 - 5.0 g/dL [facility] ALP [Catalytic activity/Vol] 217 U/L High 40 - 150 U/L [facility] ALT [Catalytic activity/Vol] 13 U/L NINF - 40 U/L [facility] Anion gap [Moles/Vol] 8 mmol/L 3 - 13 mmol/L [facility] AST [Catalytic activity/Vol] 59 U/L High NINF - 34 U/L [facility] Bilirubin [Mass/Vol] 0.9 mg/dL NINF - 1.2 mg/dL [facility] Calcium [Mass/Vol] 9 mg/dL 8.4 - 10. 2 mg/dL [facility] Chloride [Moles/Vol] 99 mmol/L 98 - 10 7 mmol/L [facility] CO2 [Moles/Vol] 27 mmol/L 22 - 29 mmol/L [facility] Creatinine [Mass/Vol] 3.36 mg/dL High 0.72 - 1.25 mg/dL [facility] GFR/1.73 sq M.predicted (S/P/Bld) [Vol rate/Area] 20.2 mL/min Low - PINF [facility] Comment on above: Calculation based on the Chronic Kidney Disease Epidemiology Collaboration (CKD-EPI) equation refit without adjustment for race Glucose [Mass/Vol] 91 mg/dL 74 - 100 mg/dL [facility] Interpretation and review of laboratory results Abnormal [facility] Potassium [Moles/Vol] 5 mmol/L 3.5 - 5.1 mmol/L [facility] Comment on above: Plasma potassium macey ues may be up to 0.5 mmol/L lower than serum values. Protein [Mass/Vol] 7.2 g/dL 6.4 - 8.3 g/dL [facility] Sodium [Moles/Vol] 134 mmol/L Low 136 - 145 mmol/L [facility] Urea nitrogen [Mass/Vol] 24 mg/dL High 9 - 23 mg/d L [facility] - Chemistry and C hemistry - challengeon 03-21-2025 Glucose [Mass/Vol] 88 mg/dL 70 - 100 mg/dL [facility] Magnesium [Mass/Vol] 1.8 mg/dL 1.6 - 2 .6 mg/dL [facility] - Coagulationon 0 03-21-2025 PT Coag (Bld) [Time] 29 s High 9.0 - 12.0 s [facility] MAGNESIUMon 03-21-2025 Magnesium [Mass/Vol] 1.8 mg/dL Normal 1.6-2.6 [facility] Comment on above: Result Comment: ARPAN R COMMENTS:Higher values can be expected in females during menses. Performed By: #### L AB17, [id number] ####Filing Clerk: DOMENICA JARA ([phone])[facility])[address] [place] [address] Magnesium [Mass/Vol]on 03-21 Interpretation and review of laboratory results Normal [facility] Higher values can be expected in females during menses. [facility] No Panel Informationon 03-21 Interpretation and review of laboratory results Normal [facility] Performed by: [place] [address] CLIA ID: [id number] [facility] Interpretation and review of laboratory results Abnormal [facility] Nursing Noteon 03-21-2025 Nursing Note Educated pt on importance of prescribed medications. Pt still refused. Normal [facility] PROTHROMBIN TIMEon INR Coag (PPP) [Relative time] 2.9 {INR} High 0.9-1.1 [facility] Comment on above: Result Comment: Vaughn [...] Myocardial Infarction Performed By: #### L AB320, [id number] ####Filing Clerk: DOMENICA JARA ([phone])[facility] ([facility])[address] [place] [address] PT Coag (PPP) [Time] 29.0 s High 9.0-12.0 [facility] Comment on above: Performed By: #### [place] AB320, [id number] ####Filing Clerk: DOMENICA JARA ([phone])[facility])[address] [place] [address] PT Coag (Bld) [Time]on 03-21 INR Coag (PPP) [Relative time] 2.9 {INR} High 0.9 - 1.1 [facility] Comment on above: Recommended Anticoag ulant [...] Infarction Progress Noteon 03-21-2025 Progress Note Normal [facility] Progress Note Patient quit smoking in September. Accepting of handout with contact information for additional support to remain quit if neccesary. Normal [facility] Progress Note Normal [facility] Progress Note Normal [facility] Progress Note Normal [facility] aPTT Coag (Bld) [Time]on aPTT Coag (PPP) [Time] 50.7 s High 20.0 - 30.5 s [facility] NOTE: The therapeutic time for Heparin anticoagulation, based on Xa activity inhibition, is an APTT of 46-80 seconds. [facility] 30on 03-20-2025 30 Normal [facility] [id number] 03-20-2025 [id number] Normal [facility] 36on 03-20-2025 36 Patient was re-admitted on 03/13. Inpatient consult team is following his care. Normal [facility] APTTon 03-20-2025 aPTT Coag (Bld) [Time] 68.9 s High 20.0-30.5 [facility] Comment on above: Result Comment: ARPAN Kaplan COMMENTS:NOTE: The therapeutic time for Heparin anticoagulation, based on Xa activity inhibition, is an APTT of 46-80 seconds. Performed By: #### L AB325 ####Filing Clerk: DOMENICA JARA ([phone])[facility] ([address] aPTT Coag (Bld) [Time] 61.5 s High 20.0-30.5 [facility] Comment on above: Result Comment: ARPAN Kaplan COMMENTS:NOTE: The therapeutic time for Heparin anticoagulation, based on Xa activity inhibition, is an APTT of 46-80 seconds. Performed By: #### L AB325 ####Filing Clerk: DOMENICA JARA ([phone])[facility])[address] [place] [address] aPTT Coag (Bld) [Time] 44.1 s High 20.0-30.5 [facility] Comment on above: Result Comment: ARPAN Kaplan COMMENTS:NOTE: The therapeutic time for Heparin anticoagulation, based on Xa activity inhibition, is an APTT of 46-80 seconds. Performed By: #### L AB320, [id number] ####Filing Clerk: DOMENICA JARA ([phone])[facility])[address] [place] [address] CBC (HEMOGRAM)on 03-20-2025 Erythrocyte distribution width (RBC) [Ratio] 20.2 % High 11.5-15.0 [facility] Comment on above: Performed By: #### L AB294 ####Filing Clerk: DOMENICA JARA ([phone])[facility])[address] [place] [address] Hematocrit (Bld) [Volume fraction] 30.3 % Low 40.0-52.0 [facility] Comment on above: Performed By: #### L AB294 ####Filing Clerk: DOMENICA JARA ([phone])[facility])[address] [place] [address] Hemoglobin (Bld) [Mass/Vol] 9.2 g/dL Low 13.0-18.0 [facility] Comment on above: Performed By: #### L AB294 ####Filing Clerk: DOMENICA JARA ([phone])[address] MCH (RBC) [Entitic mass] 30.7 pg Normal 26.0-34.0 [facility] Comment on above: Performed By: #### L AB294 ####Filing Clerk: DOMENICA [phone])[facility] ([facility])[address] [place] [address] MCHC 30.4 % Low 30.5-36.0 [facility] Comment on above: Performed By: #### L AB294 ####Filing Clerk: DOMENICA JARA ([phone])[facility] ([facility])[address] [place] [address] MCV (RBC) [Entitic vol] 101.0 fL High 77.0-99.0 [facility] Comment on above: Performed By: #### L AB294 ####Filing Clerk: DOMENICA JARA ([phone])[facility])[address] [place] [address] Platelet mean volume (Bld) [Entitic vol] 9.2 fL Normal 9.0-12.7 [facility] Comment on above: Performed By: #### L AB294 ####Filing Clerk: DOMENICA JARA ([phone])[facility] ([facility])[address] [place] [address] Platelets (Bld) [#/Vol] 308 10*3/uL Normal 140-440 [facility] Comment on above: Performed By: #### L AB294 ####Filing Clerk: DOMENICA JARA ([phone])[facility])[address] [place] [address] RBC (Bld) [#/Vol] 3.00 10*6/uL Low 4.40-5.90 [facility] Comment on above: Performed By: #### L AB294 ####Filing Clerk: DOMENICA JARA ([phone])[facility] ([facility])[address] [place] [address] WBC (Bld) [#/Vol] 8.1 10*3/uL Normal 3.6-10.7 [facility] Comment on above: Performed By: #### L AB294 ####Filing Clerk: DOMENICA JARA ([phone])[facility] ([facility])[address] [place] [address] CBC panel Auto (Bld)Ordered By: Anu Graham on 03-20-2025 Erythrocyte distribution width (RBC) [Ratio] 20.2 % High 11.5 - 15.0 % [facility] Hematocrit (Bld) [Volume fraction] 30.3 % Low 40.0 - 52.0 % [facility] Hemoglobin (Bld) [Mass/Vol] 9.2 g/dL Low 13.0 - 18.0 g/dL [facility] Interpretation and review of laboratory results Abnormal [facility] MCH (RBC) [Entitic mass] 30.7 pg 26. 0 - 34.0 pg [facility] MCHC (RBC) [Mass/Vol] 30.4 % Low 30.5 - 36.0 % [facility] MCV (RBC) [Entitic vol] 101 fL High 77.0 - 99.0 fL [facility] Platelet mean volume (Bld) [Entitic vol] 9.2 fL 9.0 - 12.7 fL [facility] Platelets (Bld) [#/Vol] 308 10*3/uL 140 - 440 10*3/uL [facility] RBC (Bld) [#/Vol] 3 10*6/uL Low 4.40 - 5.9 0 10*6/uL [facility] WBC (Bld) [#/Vol] 8.1 10*3/uL 3.6 - 10.7 10*3/uL [facility] COMPREHENSIVE METABOLIC PANE Victor M 03-20-2025 Albumin [Mass/Vol] 1.9 g/dL Low 3.5-5.0 [facility] Comment on above: Performed By: #### L AB103, [id number] ####Filing Clerk: DOMENICA JARA ([phone])[facility] ([facility])[address] [place] [address] ALP [Catalytic activity/Vol] 194 U/L High 40-150 [facility] Comment on above: Performed By: #### L AB103, LAB17 ####Filing Clerk: DOMENICA JARA ([phone])[facility] ([facility])[address] [place] [address] ALT [Catalytic activity/Vol] 13 U/L Normal <40 [facility] Comment on above: Performed By: #### L AB103, LAB17 ####Filing Clerk: DOMENICA JARA ([phone])[facility] [place] [address] Anion gap [Moles/Vol] 10 mmol/L Normal 3-13 [facility] Comment on above: Performed By: #### L AB103, LAB17 ####Filing Clerk: DOMENICA JARA ([phone])[facility] [place] [address] AST [Catalytic activity/Vol] 46 U/L High <34 [facility] Comment on above: Performed By: #### L AB103, LAB17 ####Filing Clerk: DOMENICA JARA ([phone])[facility] ([facility])[address] [place] [address] Bilirubin [Mass/Vol] 0.8 mg/dL Normal <1.2 [facility] Comment on above: Performed By: #### L AB103, LAB17 ####Filing Clerk: DOMENICA JARA ([phone])[facility] [place] [address] Calcium [Mass/Vol] 9.1 mg/dL Normal 8.4-10.2 [facility] Comment on above: Performed By: #### L AB103, LAB17 ####Filing Clerk: DOMENICA JARA ([phone])[facility] ([facility])[address] [place] [address] [place] Chloride [Moles/Vol] 102 mmol/L Normal 98-107 [facility] Comment on above: Performed By: #### L AB103, LAB17 ####Filing Clerk: DOMENICA JARA ([phone])[facility] ([facility])[address] [place] [address] [place] CO2 [Moles/Vol] 24 mmol/L Normal 22-29 [facility] Comment on above: Performed By: #### L AB103, LAB17 ####Filing Clerk: DOMENICA JARA ([phone])[facility] ([facility])[address] [place] [address] Creatinine [Mass/Vol] 4.28 mg/dL High 0.72-1.25 [facility] Comment on above: Performed By: #### Tameka KWONG, LAB17 ####Filing Clerk: DOMENICA JARA ([phone])[facility])[address] [place] [address] GLOMERULAR FILTRATION RATE ML/MIN/1.73 SQ M.PREDICTED 15.1 mL/min/1.73m*2 Low >60.0 [facility] Comment on above: Result Comment: Calc ulation based on the Chronic Kidney Disease Epidemiology Collaboration (CKD-EPI) equation refit without adjustment for race Performed By: #### Tameka KWONG, LAB17 ####Filing Clerk: DOMENICA JARA ([phone])[facility])[address] [place] [address] Glucose [Mass/Vol] 91 mg/dL Normal 74-100 [facility] Comment on above: Performed By: #### Tameka KWONG, LAB17 ####Filing Clerk: DOMENICA JARA ([phone])[facility])[address] [place] [address] Potassium [Moles/Vol] 5.3 mmol/L High 3.5-5.1 [facility] Comment on above: Result Comment: [facility] potassium values may be up to 0.5 mmol/L lower than serum values. Performed By: #### Tameka KWONG, LAB17 ####Filing Clerk: DOMENICA JARA ([phone])[facility])[address] [place] [address] Protein [Mass/Vol] 7.3 g/dL Normal 6.4-8.3 [facility] Comment on above: Performed By: #### Tameka KWONG, LAB17 ####Filing Clerk: DOMENICA JARA ([phone])[facility])[address] [place] [address] Sodium [Moles/Vol] 136 mmol/L Normal 136-145 [facility] Comment on above: Performed By: #### L AB103, LAB17 ####Filing Clerk: DOMENICA JARA ([phone])[facility] [place] [address] Urea nitrogen [Mass/Vol] 32 mg/dL High - [facility] Comment on above: Performed By: #### L AB103, LAB17 ####Filing Clerk: DOMENICA JARA ([phone])[facility] [place] [address] Comprehensive metabolic 1998 panelon 03-20-2025 Albumin [Mass/Vol] 1.9 g/dL Low 3.5 - 5.0 g/dL [facility] ALP [Catalytic activity/Vol] 194 U/L High 40 - 150 U/L [facility] ALT [Catalytic activity/Vol] 13 U/L NINF - 40 U/L [facility] Anion gap [Moles/Vol] 10 mmol/L 3 - 13 mmol/L [facility] AST [Catalytic activity/Vol] 46 U/L High NINF - 34 U/L [facility] Bilirubin [Mass/Vol] 0.8 mg/dL NINF - 1.2 mg/dL [facility] Calcium [Mass/Vol] 9.1 mg/dL 8.4 - 10. 2 mg/dL [facility] Chloride [Moles/Vol] 102 mmol/L 98 - 10 7 mmol/L [facility] CO2 [Moles/Vol] 24 mmol/L 22 - 29 mmol/L [facility] Creatinine [Mass/Vol] 4.28 mg/dL High 0.72 - 1.25 mg/dL [facility] GFR/1.73 sq M.predicted (S/P/Bld) [Vol rate/Area] 15.1 mL/min Low - PINF [facility] Comment on above: Calculation based on the Chronic Kidney Disease Epidemiology Collaboration (CKD-EPI) equation refit without adjustment for race Glucose [Mass/Vol] 91 mg/dL 74 - 100 mg/dL [facility] Interpretation and review of laboratory results Abnormal [facility] Potassium [Moles/Vol] 5.3 mmol/L High 3.5 - 5.1 mmol/L [facility] Comment on above: Plasma potassium macey ues may be up to 0.5 mmol/L lower than serum values. Protein [Mass/Vol] 7.3 g/dL 6.4 - 8.3 g/dL [facility] Sodium [Moles/Vol] 136 mmol/L 136 - 145 mmol/L [facility] Urea nitrogen [Mass/Vol] 32 mg/dL High 9 - 23 mg/d L [facility] HBV surface Ab IA Qnon 03-20 Interpretation: <8.0 Non-Reactive 8.0-11.9 Equivocal >= 12.0 Ab Detected Note: If an equivocal result is interpreted, an antibody status is unable to be determined. Collect new specimen if clinically indicated. [facility] HBV surface Ag IA Qlon 03-20 Interpretation and review of laboratory results Normal [facility] HEPATITIS B SURFACE ANTIBODY on 03-20-2025 HEPATITIS B VIRUS SURFACE AB <8.0 Normal [facility] Comment on above: Result Comment: ARPAN Kaplan COMMENTS:Interpretation:<8.0 Non-Reactive8.0-11.9 Equivocal>= 12.0 Ab DetectedNote: If an equivocal result is interpreted, an antibody status is unable to be determined. Collect new specimen if clinically indicated. Performed By: #### Tameka AB472, [id number] ####Filing Clerk: DOMENICA JARA ([phone])[address] HEPATITIS B SURFACE ANTIGENo n 03-20-2025 HEPATITIS B VIRUS SURFACE AG Not detected Normal Not Detected [facility] Comment on above: Performed By: #### Tameka AB472, [id number] ####Filing Clerk: DOMENICA JARA ([phone])[address] Laboratory - Chemistry and C hemistry - challengeon 03-20-2025 Magnesium [Mass/Vol] 2 mg/dL 1.6 - 2 .6 mg/dL [facility] Laboratory - Coagulationon 0 03-20-2025 PT Coag (Bld) [Time] 19.1 s High 9.0 - 12.0 s [facility] - Microbiology an d Antimicrobial susceptibilityon 03-20-2025 HBV surface Ag IA Ql Not detected Not Detected [facility] HBV surface Ab IA Qn mIU/mL [facility] MAGNESIUMon 06-24-2025 Magnesium [Mass/Vol] 2.0 mg/dL Normal 1.6-2.6 [facility] Comment on above: Result Comment: ORDE R COMMENTS:Higher values can be expected in females during menses. Performed By: #### L AB103, LAB17 ####Filing Clerk: DOMENICA JARA ([phone])[facility])[address] [place] [address] Magnesium [Mass/Vol]on 03-20 Interpretation and review of laboratory results Normal [facility] Higher values can be expected in females during menses. [facility] No Panel Informationon 03-20 [facility] Interpretation and review of laboratory results Abnormal [facility] Nursing Noteon 03-20-2025 Nursing Note Normal [facility] PROTHROMBIN TIMEon INR Coag (PPP) [Relative time] 1.9 {INR} High 0.9-1.1 [facility] Comment on above: Result Comment: Vaughn [...] Myocardial Infarction Performed By: #### L AB320, [id number] ####Filing Clerk: DOMENICA JARA ([phone])[facility] ([facility])[address] [place] [address] PT Coag (PPP) [Time] 19.1 s High 9.0-12.0 [facility] Comment on above: Performed By: #### L AB320, [id number] ####Filing Clerk: DOMENICA JARA ([phone])[facility] ([facility])[address] [place] [address] PT Coag (Bld) [Time]on 03-20 INR Coag (PPP) [Relative time] 1.9 {INR} High 0.9 - 1.1 [facility] Comment on above: Recommended Anticoag ulant [...] Infarction Progress Noteon 03-20-2025 Progress Note Normal [facility] Progress Note Normal [facility] Progress Note Normal [facility] aPTT Coag (Bld) [Time]on aPTT Coag (PPP) [Time] 68.9 s High 20.0 - 30.5 s [facility] Interpretation and review of laboratory results Abnormal [facility] NOTE: The therapeutic time for Heparin anticoagulation, based on Xa activity inhibition, is an APTT of 46-80 seconds. [facility] aPTT Coag (PPP) [Time] 61.5 s High 20.0 - 30.5 s [facility] Interpretation and review of laboratory results Abnormal [facility] NOTE: The therapeutic time for Heparin anticoagulation, based on Xa activity inhibition, is an APTT of 46-80 seconds. [facility] aPTT Coag (PPP) [Time] 44.1 s High 20.0 - 30.5 s [facility] NOTE: The therapeutic time for Heparin anticoagulation, based on Xa activity inhibition, is an APTT of 46-80 seconds. [facility] 30on 03-19-2025 30 Normal [facility] 30 Normal [facility] [id number] 03-19-2025 [id number] Normal [facility] APTTon 03-19-2025 aPTT Coag (Bld) [Time] 47.3 s High 20.0-30.5 [facility] Comment on above: Result Comment: ARPAN Kaplan COMMENTS:NOTE: The therapeutic time for Heparin anticoagulation, based on Xa activity inhibition, is an APTT of 46-80 seconds. Performed By: #### L AB325 ####Filing Clerk: DOMENICA JARA ([phone])[facility])[address] [place] [address] aPTT Coag (Bld) [Time] 46.4 s High 20.0-30.5 [facility] Comment on above: Result Comment: ARPAN Kaplan COMMENTS:NOTE: The therapeutic time for Heparin anticoagulation, based on Xa activity inhibition, is an APTT of 46-80 seconds. Performed By: #### L AB320, [id number] ####Filing Clerk: DOMENICA JARA ([phone])[facility])[address] [place] [address] CBC (HEMOGRAM)on 03-19-2025 Erythrocyte distribution width (RBC) [Ratio] 20.8 % High 11.5-15.0 [facility] Comment on above: Performed By: #### L AB294 ####Filing Clerk: DOMENICA JARA ([phone])[facility])[address] [place] [address] Hematocrit (Bld) [Volume fraction] 30.4 % Low 40.0-52.0 [facility] Comment on above: Performed By: #### L AB294 ####Filing Clerk: DOMENICA JARA ([phone])[address] Hemoglobin (Bld) [Mass/Vol] 8.9 g/dL Low 13.0-18.0 [facility] Comment on above: Performed By: #### L AB294 ####Filing Clerk: DOMENICA JARA ([phone])[facility])[address] [place] [address] MCH (RBC) [Entitic mass] 29.9 pg Normal 26.0-34.0 [facility] Comment on above: Performed By: #### L AB294 ####Filing Clerk: DOMENICA JARA ([phone])[address] MCHC 29.3 % Low 30.5-36.0 [facility] Comment on above: Performed By: #### L AB294 ####Filing Clerk: DOMENICA JARA ([phone])[facility] ([facility])[address] [place] [address] MCV (RBC) [Entitic vol] 102.0 fL High 77.0-99.0 [facility] Comment on above: Performed By: #### L AB294 ####Filing Clerk: DOMENICA JARA ([phone])[facility] ([facility])[address] [place] [address] Platelet mean volume (Bld) [Entitic vol] 9.3 fL Normal 9.0-12.7 [facility] Comment on above: Performed By: #### L AB294 ####Filing Clerk: DOMENICA JARA ([phone])[facility])[address] [place] [address] Platelets (Bld) [#/Vol] 320 10*3/uL Normal 140-440 [facility] Comment on above: Performed By: #### L AB294 ####Filing Clerk: DOMENICA JARA ([phone])[facility])[address] [place] [address] RBC (Bld) [#/Vol] 2.98 10*6/uL Low 4.40-5.90 [facility] Comment on above: Performed By: #### L AB294 ####Filing Clerk: DOMENICA JARA ([phone])[facility])[address] [place] [address] WBC (Bld) [#/Vol] 7.8 10*3/uL Normal 3.6-10.7 [facility] Comment on above: Performed By: #### L AB294 ####Filing Clerk: DOMENICA JARA ([phone])[facility])[address] [place] [address] CBC panel Auto (Bld)Ordered By: Liseth Granado on 03-19-2025 Erythrocyte distribution width (RBC) [Ratio] 20.8 % High 11.5 - 15.0 % [facility] Hematocrit (Bld) [Volume fraction] 30.4 % Low 40.0 - 52.0 % [facility] Hemoglobin (Bld) [Mass/Vol] 8.9 g/dL Low 13.0 - 18.0 g/dL [facility] Interpretation and review of laboratory results Abnormal [facility] MCH (RBC) [Entitic mass] 29.9 pg 26. 0 - 34.0 pg [facility] MCHC (RBC) [Mass/Vol] 29.3 % Low 30.5 - 36.0 % [facility] MCV (RBC) [Entitic vol] 102 fL High 77.0 - 99.0 fL [facility] Platelet mean volume (Bld) [Entitic vol] 9.3 fL 9.0 - 12.7 fL [facility] Platelets (Bld) [#/Vol] 320 10*3/uL 140 - 440 10*3/uL [facility] RBC (Bld) [#/Vol] 2.98 10*6/uL Low 4.40 - 5.9 0 10*6/uL [facility] WBC (Bld) [#/Vol] 7.8 10*3/uL 3.6 - 10.7 10*3/uL [facility] COMPREHENSIVE METABOLIC PANE Victor M 03-19-2025 Albumin [Mass/Vol] 2.0 g/dL Low 3.5-5.0 [facility] Comment on above: Performed By: #### L AB17, [id number] ####Filing Clerk: DOMENICA JARA ([phone])[address] ALP [Catalytic activity/Vol] 221 U/L High 40-150 [facility] Comment on above: Performed By: #### L AB17, [id number] ####Filing Clerk: DOMENICA JARA ([phone])[facility] ([facility])[address] [place] [address] ALT [Catalytic activity/Vol] 14 U/L Normal <40 [facility] Comment on above: Performed By: #### L AB17, [id number] ####Filing Clerk: DOMENICA JARA ([phone])[facility])[address] [place] [address] Anion gap [Moles/Vol] 8 mmol/L Normal 3-13 [facility] Comment on above: Performed By: #### L AB17, [id number] ####Filing Clerk: DOMENICA JARA ([phone])[facility] ([facility])[address] [place] [address] AST [Catalytic activity/Vol] 52 U/L High <34 [facility] Comment on above: Performed By: #### L AB17, [id number] ####Filing Clerk: DOMENICA JARA ([phone])[facility] ([facility])[address] [place] [address] Bilirubin [Mass/Vol] 0.9 mg/dL Normal <1.2 [facility] Comment on above: Performed By: #### L AB17, [id number] ####Filing Clerk: DOMENICA JARA ([phone])[facility])[address] [place] [address] Calcium [Mass/Vol] 9.0 mg/dL Normal 8.4-10.2 [facility] Comment on above: Performed By: #### L AB17, [id number] ####Filing Clerk: DOMENICA JARA ([phone])[facility] ([facility])[address] [place] [address] Chloride [Moles/Vol] 102 mmol/L Normal 98-107 [facility] Comment on above: Performed By: #### L AB17, [id number] ####Filing Clerk: DOMENICA JARA ([phone])[facility] ([facility])[address] [place] [address] CO2 [Moles/Vol] 27 mmol/L Normal 22-29 [facility] Comment on above: Performed By: #### L AB17, [id number] ####Filing Clerk: DOMENICA JARA ([phone])[facility])[address] [place] [address] Creatinine [Mass/Vol] 3.67 mg/dL High 0.72-1.25 [facility] Comment on above: Performed By: #### L AB17, [id number] ####Filing Clerk: DOMENICA JARA ([phone])[facility])[address] [place] [address] [place] GLOMERULAR FILTRATION RATE ML/MIN/1.73 SQ M.PREDICTED 18.2 mL/min/1.73m*2 Low >60.0 [facility] Comment on above: Result Comment: Calc ulation based on the Chronic Kidney Disease Epidemiology Collaboration (CKD-EPI) equation refit without adjustment for race Performed By: #### L 17, [id number] ####Filing Clerk: DOMENICA JARA ([phone])[facility])[address] [place] [address] [place] Glucose [Mass/Vol] 85 mg/dL Normal 74-100 [facility] Comment on above: Performed By: #### Tameka ISAAC17, [id number] ####Filing Clerk: DOMENICA JARA ([phone])[facility])[address] [place] [address] [place] Potassium [Moles/Vol] 4.0 mmol/L Normal 3.5-5.1 [facility] Comment on above: Result Comment: [facility] potassium values may be up to 0.5 mmol/L lower than serum values. Performed By: #### Tameka ISAAC17, [id number] ####Filing Clerk: DOMENICA JARA ([phone])[facility])[address] [place] [address] [place] Protein [Mass/Vol] 7.4 g/dL Normal 6.4-8.3 [facility] Comment on above: Performed By: #### L AB17, [id number] ####Filing Clerk: DOMENICA JARA ([phone])[facility])[address] [place] [address] [place] Sodium [Moles/Vol] 137 mmol/L Normal 136-145 [facility] Comment on above: Performed By: #### L AB17, [id number] ####Filing Clerk: DOMENICA JARA ([phone])[facility])[address] [place] [address] [place] Urea nitrogen [Mass/Vol] 24 mg/dL High 9-23 [facility] Comment on above: Performed By: #### L AB17, [id number] ####Filing Clerk: DOMENICA JARA ([phone])[facility] ([id number] Comprehensive metabolic 1998 panelOrdered By: Rikki Caballero on 03-19-2025 Albumin [Mass/Vol] 2 g/dL Low 3.5 - 5.0 g/dL [facility] ALP [Catalytic activity/Vol] 221 U/L High 40 - 150 U/L [facility] ALT [Catalytic activity/Vol] 14 U/L NINF - 40 U/L [facility] Anion gap [Moles/Vol] 8 mmol/L 3 - 13 mmol/L [facility] AST [Catalytic activity/Vol] 52 U/L High NINF - 34 U/L [facility] Bilirubin [Mass/Vol] 0.9 mg/dL NINF - 1.2 mg/dL [facility] Calcium [Mass/Vol] 9 mg/dL 8.4 - 10. 2 mg/dL [facility] Chloride [Moles/Vol] 102 mmol/L 98 - 10 7 mmol/L [facility] CO2 [Moles/Vol] 27 mmol/L 22 - 29 mmol/L [facility] Creatinine [Mass/Vol] 3.67 mg/dL High 0.72 - 1.25 mg/dL [facility] GFR/1.73 sq M.predicted (S/P/Bld) [Vol rate/Area] 18.2 mL/min Low - PINF [facility] Comment on above: Calculation based on the Chronic Kidney Disease Epidemiology Collaboration (CKD-EPI) equation refit without adjustment for race Glucose [Mass/Vol] 85 mg/dL 74 - 100 mg/dL [facility] Interpretation and review of laboratory results Abnormal [facility] Potassium [Moles/Vol] 4 mmol/L 3.5 - 5.1 mmol/L [facility] Comment on above: Plasma potassium macey ues may be up to 0.5 mmol/L lower than serum values. Protein [Mass/Vol] 7.4 g/dL 6.4 - 8.3 g/dL [facility] Sodium [Moles/Vol] 137 mmol/L 136 - 145 mmol/L [facility] Urea nitrogen [Mass/Vol] 24 mg/dL High 9 - 23 mg/d L [facility] - Chemistry and C hemistry - challengeon 03-19-2025 Magnesium [Mass/Vol] 1.9 mg/dL 1.6 - 2 .6 mg/dL [facility] - Coagulationon 0 03-19-2025 PT Coag (Bld) [Time] 17 s High 9.0 - 12.0 s [facility] MAGNESIUMon 03-19-2025 Magnesium [Mass/Vol] 1.9 mg/dL Normal 1.6-2.6 [facility] Comment on above: Result Comment: ARPAN Kaplan COMMENTS:Higher values can be expected in females during menses. Performed By: #### L AB17, [id number] ####Filing Clerk: DOMENICA JARA ([phone])[facility])[address] [place] [address] Magnesium [Mass/Vol]on 03-19 Interpretation and review of laboratory results Normal [facility] Higher values can be expected in females during menses. [facility] No Panel Informationon 03-19 Interpretation and review of laboratory results Abnormal [facility] Nursing Noteon 03-19-2025 Nursing Note Wound vac suction failing-pt requesting wound vac removed for now. Black foam dressing removed and wound packed with saline-soaked gauze covered with DSD Normal [facility] Nursing Note Pt adamantly refusing telemetry at this time, ripped off monitor and threw to the floor Normal [facility] PROTHROMBIN TIMEon INR Coag (PPP) [Relative time] 1.6 {INR} High 0.9-1.1 [facility] Comment on above: Performed By: #### L AB320, [id number] ####Filing Clerk: DOMENICA JARA ([phone])[facility])[address] [place] [address] PT Coag (PPP) [Time] 17.0 s High 9.0-12.0 [facility] Comment on above: Performed By: #### L AB320, [id number] ####Filing Clerk: DOMENICA JARA ([phone])[place] [address] [place] [address] [place] PT Coag (Bld) [Time]on 03-19 INR Coag (PPP) [Relative time] 1.6 {INR} High 0.9 - 1.1 [facility] Progress Noteon 03-19-[address] [facility] Progress Note [facility] Progress Note Normal [facility] Progress [facility] Normal [facility] aPTT Coag (Bld) [Time]on aPTT Coag (PPP) [Time] 47.3 s High 20.0 - 30.5 s [facility] Interpretation and review of laboratory results Abnormal [facility] NOTE: The therapeutic time for Heparin anticoagulation, based on Xa activity inhibition, is an APTT of 46-80 seconds. [facility] aPTT Coag (PPP) [Time] 46.4 s High 20.0 - 30.5 s [facility] NOTE: The therapeutic time for Heparin anticoagulation, based on Xa activity inhibition, is an APTT of 46-80 seconds. [facility] APTTon 03-18-2025 aPTT Coag (Bld) [Time] 51.8 s High 20.0-30.5 [facility] Comment on above: Result Comment: ARPAN Kaplan COMMENTS:NOTE: The therapeutic time for Heparin anticoagulation, based on Xa activity inhibition, is an APTT of 46-80 seconds. Performed By: #### L AB325 ####Filing Clerk: DOMENICA JARA ([phone])[facility] [place] [address] aPTT Coag (Bld) [Time] 47.6 s High 20.0-30.5 [facility] Comment on above: Result Comment: ARPAN Kaplan COMMENTS:NOTE: The therapeutic time for Heparin anticoagulation, based on Xa activity inhibition, is an APTT of 46-80 seconds. Performed By: #### L AB325 ####Filing Clerk: DOMENICA JARA ([phone])[facility] [place] [address] [place] aPTT Coag (Bld) [Time] 48.8 s High 20.0-30.5 [facility] [facility] Comment on above: Result Comment: ARPAN R COMMENTS:NOTE: The therapeutic time for Heparin anticoagulation, based on Xa activity inhibition, is an APTT of 46-80 seconds. Performed By: #### L AB325, [id number] ####Filing Clerk: DOMENICA JARA ([phone])[facility] ([facility])[address] [place] [address] CBC (HEMOGRAM)on 03-18-2025 Erythrocyte distribution width (RBC) [Ratio] 20.6 % High 11.5-15.0 [facility] Comment on above: Performed By: #### L AB294 ####Filing Clerk: DOMENICA JARA ([phone])[facility])[address] [place] [address] Hematocrit (Bld) [Volume fraction] 30.4 % Low 40.0-52.0 [facility] Comment on above: Performed By: #### L AB294 ####Filing Clerk: DOMENICA JARA ([phone])[facility])[address] [place] [address] Hemoglobin (Bld) [Mass/Vol] 9.1 g/dL Low 13.0-18.0 [facility] Comment on above: Performed By: #### L AB294 ####Filing Clerk: DOMENICA JARA ([phone])[facility])[address] [place] [address] MCH (RBC) [Entitic mass] 30.0 pg Normal 26.0-34.0 [facility] Comment on above: Performed By: #### L AB294 ####Filing Clerk: DOMENICA JARA ([phone])[facility])[address] [place] [address] MCHC 29.9 % Low 30.5-36.0 [facility] Comment on above: Performed By: #### L AB294 ####Filing Clerk: DOMENICA JARA ([phone])[facility])[address] [place] [address] MCV (RBC) [Entitic vol] 100.3 fL High 77.0-99.0 [facility] Comment on above: Performed By: #### L AB294 ####Filing Clerk: DOMENICA JARA ([phone])[facility])[address] [place] [address] Platelet mean volume (Bld) [Entitic vol] 9.4 fL Normal 9.0-12.7 [facility] Comment on above: Performed By: #### L AB294 ####Filing Clerk: DOMENICA JARA ([phone])[facility])[address] [place] [address] Platelets (Bld) [#/Vol] 333 10*3/uL Normal 140-440 [facility] Comment on above: Performed By: #### L AB294 ####Filing Clerk: DOMENICA JARA ([phone])[facility])[address] [place] [address] RBC (Bld) [#/Vol] 3.03 10*6/uL Low 4.40-5.90 [facility] Comment on above: Performed By: #### L AB294 ####Filing Clerk: DOMENICA JARA ([phone])[facility])[address] [place] [address] WBC (Bld) [#/Vol] 7.6 10*3/uL Normal 3.6-10.7 [facility] Comment on above: Performed By: #### L AB294 ####Filing Clerk: DOMENICA JARA ([phone])[facility])[address] [place] [address] CBC panel Auto (Bld)Ordered By: Haley Vitale on 03-18-2025 Erythrocyte distribution width (RBC) [Ratio] 20.6 % High 11.5 - 15.0 % [facility] Hematocrit (Bld) [Volume fraction] 30.4 % Low 40.0 - 52.0 % [facility] Hemoglobin (Bld) [Mass/Vol] 9.1 g/dL Low 13.0 - 18.0 g/dL [facility] Interpretation and review of laboratory results Abnormal [facility] MCH (RBC) [Entitic mass] 30 pg 26. 0 - 34.0 pg [facility] MCHC (RBC) [Mass/Vol] 29.9 % Low 30.5 - 36.0 % [facility] MCV (RBC) [Entitic vol] 100.3 fL High 77.0 - 99.0 fL [facility] Platelet mean volume (Bld) [Entitic vol] 9.4 fL 9.0 - 12.7 fL [facility] Platelets (Bld) [#/Vol] 333 10*3/uL 140 - 440 10*3/uL [facility] RBC (Bld) [#/Vol] 3.03 10*6/uL Low 4.40 - 5.9 0 10*6/uL [facility] WBC (Bld) [#/Vol] 7.6 10*3/uL 3.6 - 10.7 10*3/uL [facility] COMPREHENSIVE METABOLIC PANE Victor M 03-18-2025 Albumin [Mass/Vol] 2.0 g/dL Low 3.5-5.0 [facility] Comment on above: Performed By: #### Tameka KWONG, LAB17 ####Filing Clerk: DOMENICA JARA ([phone])[address] ALP [Catalytic activity/Vol] 241 U/L High 40-150 [facility] Comment on above: Performed By: #### Tameka KWONG, LAB17 ####Filing Clerk: DOMENICA JARA ([phone])[facility])[address] [place] [address] ALT [Catalytic activity/Vol] 11 U/L Normal <40 [facility] Comment on above: Performed By: #### Tameka [id number], LAB17 ####Filing Clerk: DOMENICA JARA ([phone])[facility])[address] [place] [address] Anion gap [Moles/Vol] 10 mmol/L Normal 3-13 [facility] Comment on above: Performed By: #### L AB103, LAB17 ####Filing Clerk: DOMENICA JARA ([phone])[facility] ([facility])[address] [place] [address] [place] AST [Catalytic activity/Vol] 50 U/L High <34 [facility] Comment on above: Performed By: #### L AB103, LAB17 ####Filing Clerk: DOMENICA JARA ([phone])[facility] ([facility])[address] [place] [address] [place] Bilirubin [Mass/Vol] 0.8 mg/dL Normal <1.2 [facility] Comment on above: Performed By: #### L AB103, LAB17 ####Filing Clerk: DOMENICA JARA ([phone])[facility] [place] [address] Calcium [Mass/Vol] 9.0 mg/dL Normal 8.4-10.2 [facility] Comment on above: Performed By: #### L VARGHESE, LAB17 ####Filing Clerk: DOMENICA JARA ([phone])[facility] ([facility])[address] [place] [address] [place] Chloride [Moles/Vol] 100 mmol/L Normal 98-107 [facility] Comment on above: Performed By: #### L AB103, LAB17 ####Filing Clerk: DOMENICA JARA ([phone])[facility] ([facility])[address] [place] [address] [place] CO2 [Moles/Vol] 29 mmol/L Normal 22-29 [facility] Comment on above: Performed By: #### L AB103, LAB17 ####Filing Clerk: DOMENICA JARA ([phone])[facility] ([facility])[address] [place] [address] [place] Creatinine [Mass/Vol] 2.64 mg/dL High 0.72-1.25 [facility] Comment on above: Performed By: #### L AB103, LAB17 ####Filing Clerk: DOMENICA JARA ([phone])[facility] ([facility])[address] [place] [address] [place] GLOMERULAR FILTRATION RATE ML/MIN/1.73 SQ M.PREDICTED 27.0 mL/min/1.73m*2 Low >60.0 [facility] Comment on above: Result Comment: Calc ulation based on the Chronic Kidney Disease Epidemiology Collaboration (CKD-EPI) equation refit without adjustment for race Performed By: #### L AB103, LAB17 ####Filing Clerk: DOMENICA JARA ([phone])[facility])[address] [place] [address] Glucose [Mass/Vol] 73 mg/dL Low 74-100 [facility] Comment on above: Performed By: #### Tameka KWONG, LAB17 ####Filing Clerk: DOMENICA JARA ([phone])[address] Potassium [Moles/Vol] 3.4 mmol/L Low 3.5-5.1 [facility] Comment on above: Result Comment: [facility] potassium values may be up to 0.5 mmol/L lower than serum values. Performed By: #### L AB103, LAB17 ####Filing Clerk: DOMENICA JARA ([phone])[address] Protein [Mass/Vol] 7.3 g/dL Normal 6.4-8.3 [facility] Comment on above: Performed By: #### L 103, LAB17 ####Filing Clerk: DOMENICA JARA ([phone])[place] [address] [place] Sodium [Moles/Vol] 139 mmol/L Normal 136-145 [facility] Comment on above: Performed By: #### L AB103, LAB17 ####Filing Clerk: DOMENICA JARA ([phone])[address] Urea nitrogen [Mass/Vol] 16 mg/dL Normal 9-23 [facility] Comment on above: Performed By: #### L AB103, LAB17 ####Filing Clerk: DOMENICA [phone])[facility] ([facility])[address] [place] [address] Comprehensive metabolic 1998 panelon 03-18-2025 Albumin [Mass/Vol] 2 g/dL Low 3.5 - 5.0 g/dL [facility] ALP [Catalytic activity/Vol] 241 U/L High 40 - 150 U/L [facility] ALT [Catalytic activity/Vol] 11 U/L NINF - 40 U/L [facility] Anion gap [Moles/Vol] 10 mmol/L 3 - 13 mmol/L [facility] AST [Catalytic activity/Vol] 50 U/L High NINF - 34 U/L [facility] Bilirubin [Mass/Vol] 0.8 mg/dL NINF - 1.2 mg/dL [facility] Calcium [Mass/Vol] 9 mg/dL 8.4 - 10. 2 mg/dL [facility] Chloride [Moles/Vol] 100 mmol/L 98 - 10 7 mmol/L [facility] CO2 [Moles/Vol] 29 mmol/L 22 - 29 mmol/L [facility] Creatinine [Mass/Vol] 2.64 mg/dL High 0.72 - 1.25 mg/dL [facility] GFR/1.73 sq M.predicted (S/P/Bld) [Vol rate/Area] 27 mL/min Low - PINF [facility] Comment on above: Calculation based on the Chronic Kidney Disease Epidemiology Collaboration (CKD-EPI) equation refit without adjustment for race Glucose [Mass/Vol] 73 mg/dL Low 74 - 100 mg/dL [facility] Interpretation and review of laboratory results Abnormal [facility] Potassium [Moles/Vol] 3.4 mmol/L Low 3.5 - 5.1 mmol/L [facility] Comment on above: Plasma potassium macey ues may be up to 0.5 mmol/L lower than serum values. Protein [Mass/Vol] 7.3 g/dL 6.4 - 8.3 g/dL [facility] Sodium [Moles/Vol] 139 mmol/L 136 - 145 mmol/L [facility] Urea nitrogen [Mass/Vol] 16 mg/dL 9 - 23 mg/d L [facility] - Chemistry and C hemistry - challengeon 03-18-2025 Magnesium [Mass/Vol] 1.9 mg/dL 1.6 - 2 .6 mg/dL [facility] - Coagulationon 0 03-18-2025 PT Coag (Bld) [Time] 15.2 s High 9.0 - 12.0 s [facility] MAGNESIUMon 03-18-2025 Magnesium [Mass/Vol] 1.9 mg/dL Normal 1.6-2.6 [facility] Comment on above: Result Comment: ORDE R COMMENTS:Higher values can be expected in females during menses. Performed By: #### L AB103, LAB17 ####Filing Clerk: DOMENICA JARA ([phone])[facility])[address] [place] [address] Magnesium [Mass/Vol]on 03-18 Interpretation and review of laboratory results Normal [facility] Higher values can be expected in females during menses. [facility] No Panel Informationon 03-18 [facility] Interpretation and review of laboratory results Abnormal [facility] PROTHROMBIN TIMEon INR Coag (PPP) [Relative time] 1.5 {INR} High 0.9-1.1 [facility] Comment on above: Result Comment: Vaughn [...] Myocardial Infarction Performed By: #### Tameka AB325, [id number] ####Filing Clerk: DOMENICA JARA ([phone])[facility] ([facility])[address] [place] [address] [place] PT Coag (PPP) [Time] 15.2 s High 9.0-12.0 [facility] Comment on above: Performed By: #### Tameka AB325, [id number] ####Filing Clerk: DOMENICA JARA ([phone])[facility] ([facility])[address] [place] [address] [place] PT Coag (Bld) [Time]on 03-18 INR Coag (PPP) [Relative time] 1.5 {INR} High 0.9 - 1.1 [facility] Comment on above: Recommended Anticoag ulant [...] Infarction Progress Noteon 03-18-2025 Progress Note Normal [facility] Progress Note Normal [facility] Progress Note Normal [facility] aPTT Coag (Bld) [Time]on aPTT Coag (PPP) [Time] 51.8 s High 20.0 - 30.5 s [facility] Interpretation and review of laboratory results Abnormal [facility] NOTE: The therapeutic time for Heparin anticoagulation, based on Xa activity inhibition, is an APTT of 46-80 seconds. [facility] aPTT Coag (PPP) [Time] 47.6 s High 20.0 - 30.5 s [facility] Interpretation and review of laboratory results Abnormal [facility] NOTE: The therapeutic time for Heparin anticoagulation, based on Xa activity inhibition, is an APTT of 46-80 seconds. [facility] aPTT Coag (PPP) [Time] 48.8 s High 20.0 - 30.5 s [facility] NOTE: The therapeutic time for Heparin anticoagulation, based on Xa activity inhibition, is an APTT of 46-80 seconds. [facility] 30on 03-17-2025 30 Normal [facility] APTTon 03-17-2025 aPTT Coag (Bld) [Time] 44.1 s High 20.0-30.5 [facility] Comment on above: Result Comment: ARPAN Kaplan COMMENTS:NOTE: The therapeutic time for Heparin anticoagulation, based on Xa activity inhibition, is an APTT of 46-80 seconds. Performed By: #### L AB325 ####Filing Clerk: DOMENICA JARA ([phone])[facility])[address] [place] [address] aPTT Coag (Bld) [Time] 29.1 s Normal 20.0-30.5 [facility] Comment on above: Result Comment: ARPAN Kaplan COMMENTS:NOTE: The therapeutic time for Heparin anticoagulation, based on Xa activity inhibition, is an APTT of 46-80 seconds. Performed By: #### L AB325 ####Filing Clerk: DOMENICA JARA ([phone])[facility])[address] [place] [address] CBC (HEMOGRAM)on 03-17-2025 Erythrocyte distribution width (RBC) [Ratio] 21.2 % High 11.5-15.0 [facility] Comment on above: Performed By: #### L AB294 ####Filing Clerk: DOMENICA JARA ([phone])[facility])[address] [place] [address] Hematocrit (Bld) [Volume fraction] 33.8 % Low 40.0-52.0 [facility] Comment on above: Performed By: #### L AB294 ####Filing Clerk: DOMENICA JARA ([phone])[facility])[address] [place] [address] Hemoglobin (Bld) [Mass/Vol] 10.0 g/dL Low 13.0-18.0 [facility] Comment on above: Performed By: #### L AB294 ####Filing Clerk: DOMENICA JARA ([phone])[facility])[address] [place] [address] MCH (RBC) [Entitic mass] 30.2 pg Normal 26.0-34.0 [facility] Comment on above: Performed By: #### L AB294 ####Filing Clerk: DOMENICA JARA ([phone])[facility])[address] [place] [address] MCHC 29.6 % Low 30.5-36.0 [facility] Comment on above: Performed By: #### L AB294 ####Filing Clerk: DOMENICA JARA ([phone])[facility] ([facility])[address] [place] [address] MCV (RBC) [Entitic vol] 102.1 fL High 77.0-99.0 [facility] Comment on above: Performed By: #### L AB294 ####Filing Clerk: DOMENICA JARA ([phone])[facility] ([facility])[address] [place] [address] Platelet mean volume (Bld) [Entitic vol] 9.2 fL Normal 9.0-12.7 [facility] Comment on above: Performed By: #### L AB294 ####Filing Clerk: DOMENICA JARA ([phone])[facility] ([facility])[address] [place] [address] Platelets (Bld) [#/Vol] 407 10*3/uL Normal 140-440 [facility] Comment on above: Performed By: #### L AB294 ####Filing Clerk: DOMENICA JARA ([phone])[facility] ([facility])[address] [place] [address] RBC (Bld) [#/Vol] 3.31 10*6/uL Low 4.40-5.90 [facility] Comment on above: Performed By: #### L AB294 ####Filing Clerk: DOMENICA JARA ([phone])[facility] ([facility])[address] [place] [address] WBC (Bld) [#/Vol] 6.7 10*3/uL Normal 3.6-10.7 [facility] Comment on above: Performed By: #### L AB294 ####Filing Clerk: DOMENICA JARA ([phone])[facility])[address] [place] [address] CBC panel Auto (Bld)Ordered By: Giancarlo Lakhani on 03-17-2025 Erythrocyte distribution width (RBC) [Ratio] 21.2 % High 11.5 - 15.0 % [facility] Hematocrit (Bld) [Volume fraction] 33.8 % Low 40.0 - 52.0 % [facility] Hemoglobin (Bld) [Mass/Vol] 10 g/dL Low 13.0 - 18.0 g/dL [facility] Interpretation and review of laboratory results Abnormal [facility] MCH (RBC) [Entitic mass] 30.2 pg 26. 0 - 34.0 pg [facility] MCHC (RBC) [Mass/Vol] 29.6 % Low 30.5 - 36.0 % [facility] MCV (RBC) [Entitic vol] 102.1 fL High 77.0 - 99.0 fL [facility] Platelet mean volume (Bld) [Entitic vol] 9.2 fL 9.0 - 12.7 fL [facility] Platelets (Bld) [#/Vol] 407 10*3/uL 140 - 440 10*3/uL [facility] RBC (Bld) [#/Vol] 3.31 10*6/uL Low 4.40 - 5.9 0 10*6/uL [facility] WBC (Bld) [#/Vol] 6.7 10*3/uL 3.6 - 10.7 10*3/uL [facility] COMPREHENSIVE METABOLIC PANE Victor M 03-17-2025 Albumin [Mass/Vol] 2.2 g/dL Low 3.5-5.0 [facility] Comment on above: Performed By: #### L AB17, [id number], [id number] ####Filing Clerk: DOMENICA JARA ([phone])[address] ALP [Catalytic activity/Vol] 223 U/L High 40-150 [facility] Comment on above: Performed By: #### L AB17, [id number], [id number] ####Filing Clerk: DOMENICA JARA ([phone])[address] ALT [Catalytic activity/Vol] 15 U/L Normal <40 [facility] Comment on above: Performed By: #### L AB17, [id number], [id number] ####Filing Clerk: DOMENICA JARA ([phone])[facility])[address] [place] [address] Anion gap [Moles/Vol] 12 mmol/L Normal 3-13 [facility] Comment on above: Performed By: #### L AB17, [id number], [id number] ####Filing Clerk: DOMENICA JARA ([phone])[facility] ([facility])[address] [place] [address] AST [Catalytic activity/Vol] 54 U/L High <34 [facility] Comment on above: Performed By: #### L AB17, [id number], [id number] ####Filing Clerk: DOMENICA JARA ([phone])[facility] ([facility])[address] [place] [address] Bilirubin [Mass/Vol] 0.9 mg/dL Normal <1.2 [facility] Comment on above: Performed By: #### L AB17, [id number], [id number] ####Filing Clerk: DOMENICA JARA ([phone])[facility] ([facility])[address] [place] [address] Calcium [Mass/Vol] 9.6 mg/dL Normal 8.4-10.2 [facility] Comment on above: Performed By: #### L AB17, [id number], EIK731 ####Filing Clerk: DOMENICA JARA ([phone])[facility] ([facility])[address] [place] [address] Chloride [Moles/Vol] 104 mmol/L Normal 98-107 [facility] Comment on above: Performed By: #### L AB17, [id number], [id number] ####Filing Clerk: DOMENICA JARA ([phone])[facility] ([facility])[address] [place] [address] [place] CO2 [Moles/Vol] 25 mmol/L Normal 22-29 [facility] Comment on above: Performed By: #### L AB17, [id number], PRZ134 ####Filing Clerk: DOMENICA JARA ([phone])[facility] ([facility])[address] [place] [address] Creatinine [Mass/Vol] 3.25 mg/dL High 0.72-1.25 [facility] Comment on above: Performed By: #### L AB17, [id number], [id number] ####Filing Clerk: DOMENICA JARA ([phone])[facility])[address] [place] [address] GLOMERULAR FILTRATION RATE ML/MIN/1.73 SQ M.PREDICTED 21.1 mL/min/1.73m*2 Low >60.0 [facility] Comment on above: Result Comment: Calc ulation based on the Chronic Kidney Disease Epidemiology Collaboration (CKD-EPI) equation refit without adjustment for race Performed By: #### L AB17, [id number], [id number] ####Filing Clerk: DOMENICA JARA ([phone])[facility])[address] [place] [address] Glucose [Mass/Vol] 87 mg/dL Normal 74-100 [facility] Comment on above: Performed By: #### Tameka AB17, [id number], PYD162 ####Filing Clerk: DOMENICA JARA ([phone])[address] Potassium [Moles/Vol] 3.9 mmol/L Normal 3.5-5.1 [facility] Comment on above: Result Comment: [facility] potassium values may be up to 0.5 mmol/L lower than serum values. Performed By: #### L AB17, [id number], [id number] ####Filing Clerk: DOMENICA JARA ([phone])[facility])[address] [place] [address] Protein [Mass/Vol] 8.0 g/dL Normal 6.4-8.3 [facility] Comment on above: Performed By: #### L AB17, [id number], TYS657 ####Filing Clerk: DOMENICA JARA ([phone])[address] Sodium [Moles/Vol] 141 mmol/L Normal 136-145 [facility] Comment on above: Performed By: #### L AB17, [id number], [id number] ####Filing Clerk: DOMENICA JARA ([phone])[facility] ([facility])[address] [place] [address] Urea nitrogen [Mass/Vol] 22 mg/dL Normal 9-23 [facility] Comment on above: Performed By: #### L AB17, [id number], [id number] ####Filing Clerk: DOMENICA JARA ([phone])[facility] [place] [address] Comprehensive metabolic 1998 panelon 03-17-2025 Albumin [Mass/Vol] 2.2 g/dL Low 3.5 - 5.0 g/dL [facility] ALP [Catalytic activity/Vol] 223 U/L High 40 - 150 U/L [facility] ALT [Catalytic activity/Vol] 15 U/L NINF - 40 U/L [facility] Anion gap [Moles/Vol] 12 mmol/L 3 - 13 mmol/L [facility] AST [Catalytic activity/Vol] 54 U/L High NINF - 34 U/L [facility] Bilirubin [Mass/Vol] 0.9 mg/dL NINF - 1.2 mg/dL [facility] Calcium [Mass/Vol] 9.6 mg/dL 8.4 - 10. 2 mg/dL [facility] Chloride [Moles/Vol] 104 mmol/L 98 - 10 7 mmol/L [facility] CO2 [Moles/Vol] 25 mmol/L 22 - 29 mmol/L [facility] Creatinine [Mass/Vol] 3.25 mg/dL High 0.72 - 1.25 mg/dL [facility] GFR/1.73 sq M.predicted (S/P/Bld) [Vol rate/Area] 21.1 mL/min Low - PINF [facility] Comment on above: Calculation based on the Chronic Kidney Disease Epidemiology Collaboration (CKD-EPI) equation refit without adjustment for race Glucose [Mass/Vol] 87 mg/dL 74 - 100 mg/dL [facility] Interpretation and review of laboratory results Abnormal [facility] Potassium [Moles/Vol] 3.9 mmol/L 3.5 - 5.1 mmol/L [facility] Comment on above: Plasma potassium macey ues may be up to 0.5 mmol/L lower than serum values. Protein [Mass/Vol] 8 g/dL 6.4 - 8.3 g/dL [facility] Sodium [Moles/Vol] 141 mmol/L 136 - 145 mmol/L [facility] Urea nitrogen [Mass/Vol] 22 mg/dL 9 - 23 mg/d L [facility] - Chemistry and C hemistry - challengeon 03-17-2025 Magnesium [Mass/Vol] 2.2 mg/dL 1.6 - 2 .6 mg/dL [facility] - Coagulationon 0 03-17-2025 PT Coag (Bld) [Time] 16 s High 9.0 - 12.0 s [facility] MAGNESIUMon 03-17-2025 Magnesium [Mass/Vol] 2.2 mg/dL Normal 1.6-2.6 [facility] Comment on above: Result Comment: ARPAN Kaplan COMMENTS:Higher values can be expected in females during menses. Performed By: #### L AB17, [id number], [id number] ####Filing Clerk: DOMENICA JARA ([phone])[address] Magnesium [Mass/Vol]on 03-17 Interpretation and review of laboratory results Normal [facility] Higher values can be expected in females during menses. [facility] NT PRO BNPon 03-17-2025 NT PRO BNP >54074 High <125 [facility] Comment on above: Performed By: #### L AB17, [id number], [id number] ####Filing Clerk: DOMENICA JARA ([phone])[facility] [employer] Natriuretic peptide B [Mass/ Vol]on 03-17-2025 Interpretation and review of laboratory results Abnormal [facility] Natriuretic peptide B (Bld) [Mass/Vol] pg/mL High NINF - 125 pg/mL [facility] No Panel Informationon 03-17 [facility] Nursing Noteon 03-17-2025 Nursing Note Normal [facility] PROTHROMBIN TIMEon INR Coag (PPP) [Relative time] 1.5 {INR} High 0.9-1.1 [facility] Comment on above: Result Comment: Vaughn [...] Myocardial Infarction Performed By: #### L AB320 ####Filing Clerk: DOMENICA JARA ([phone])[facility] ([facility] [place] [address] PT Coag (PPP) [Time] 16.0 s High 9.0-12.0 [facility] Comment on above: Performed By: #### Tameka [id number] ####Filing Clerk: DOMENICA JARA ([phone])[facility] ([facility])[address] [place] [address] PT Coag (Bld) [Time]on 03-17 INR Coag (PPP) [Relative time] 1.5 {INR} High 0.9 - 1.1 [facility] Comment on above: Recommended Anticoag ulant [...] of laboratory results Abnormal [facility] Progress Noteon 03-17-[address] [facility] Progress Note Normal [place] [facility] [employer] [facility] Progress Note Normal [facility] [employer] [facility] aPTT Coag (Bld) [Time]on aPTT Coag (PPP) [Time] 44.1 s High 20.0 - 30.5 s [facility] Interpretation and review of laboratory results Abnormal [facility] NOTE: The therapeutic time for Heparin anticoagulation, based on Xa activity inhibition, is an APTT of 46-80 seconds. [facility] aPTT Coag (PPP) [Time] 29.1 s 20.0 - 30.5 s [facility] Interpretation and review of laboratory results Normal [facility] NOTE: The therapeutic time for Heparin anticoagulation, based on Xa activity inhibition, is an APTT of 46-80 seconds. [facility] 30on 03-16-2025 30 Normal [facility] 30 Normal [facility] CBC (HEMOGRAM)on 03-16-2025 Erythrocyte distribution width (RBC) [Ratio] 21.2 % High 11.5-15.0 [facility] Comment on above: Performed By: #### L [id number] ####Filing Clerk: DOMENICA JARA ([phone])[address] Hematocrit (Bld) [Volume fraction] 30.2 % Low 40.0-52.0 [facility] Comment on above: Performed By: #### L AB294 ####Filing Clerk: DOMENICA JARA ([phone])[facility])[address] [place] [address] Hemoglobin (Bld) [Mass/Vol] 9.1 g/dL Low 13.0-18.0 [facility] Comment on above: Performed By: #### L AB294 ####Filing Clerk: DOMENICA JARA ([phone])[address] MCH (RBC) [Entitic mass] 30.1 pg Normal 26.0-34.0 [facility] Comment on above: Performed By: #### L AB294 ####Filing Clerk: DOMENICA JARA ([phone])[facility])[address] [place] [address] MCHC 30.1 % Low 30.5-36.0 [facility] Comment on above: Performed By: #### L AB294 ####Filing Clerk: DOMENICA JARA ([phone])[facility])[address] [place] [address] MCV (RBC) [Entitic vol] 100.0 fL High 77.0-99.0 [facility] Comment on above: Performed By: #### L AB294 ####Filing Clerk: DOMENICA JARA ([phone])[facility] ([facility])[address] [place] [address] Platelet mean volume (Bld) [Entitic vol] 9.0 fL Normal 9.0-12.7 [facility] Comment on above: Performed By: #### L AB294 ####Filing Clerk: DOMENICA JARA ([phone])[facility] ([facility])[address] [place] [address] Platelets (Bld) [#/Vol] 372 10*3/uL Normal 140-440 [facility] Comment on above: Performed By: #### L AB294 ####Filing Clerk: DOMENICA JARA ([phone])[facility] ([facility])[address] [place] [address] RBC (Bld) [#/Vol] 3.02 10*6/uL Low 4.40-5.90 [facility] Comment on above: Performed By: #### L AB294 ####Filing Clerk: DOMENICA JARA ([phone])[facility] ([facility])[address] [place] [address] WBC (Bld) [#/Vol] 7.0 10*3/uL Normal 3.6-10.7 [facility] Comment on above: Performed By: #### L AB294 ####Filing Clerk: DOMENICA JARA ([phone])[facility] ([facility])[address] [place] [address] CBC panel Auto (Bld)Ordered By: Callie Steele on 03-16-2025 Erythrocyte distribution width (RBC) [Ratio] 21.2 % High 11.5 - 15.0 % [facility] Hematocrit (Bld) [Volume fraction] 30.2 % Low 40.0 - 52.0 % [facility] Hemoglobin (Bld) [Mass/Vol] 9.1 g/dL Low 13.0 - 18.0 g/dL [facility] Interpretation and review of laboratory results Abnormal [facility] MCH (RBC) [Entitic mass] 30.1 pg 26. 0 - 34.0 pg [facility] MCHC (RBC) [Mass/Vol] 30.1 % Low 30.5 - 36.0 % [facility] MCV (RBC) [Entitic vol] 100 fL High 77.0 - 99.0 fL [facility] Platelet mean volume (Bld) [Entitic vol] 9 fL 9.0 - 12.7 fL [facility] Platelets (Bld) [#/Vol] 372 10*3/uL 140 - 440 10*3/uL [facility] RBC (Bld) [#/Vol] 3.02 10*6/uL Low 4.40 - 5.9 0 10*6/uL [facility] WBC (Bld) [#/Vol] 7 10*3/uL 3.6 - 10.7 10*3/uL [facility] COMPREHENSIVE METABOLIC PANE Victor M 03-16-2025 Albumin [Mass/Vol] 2.0 g/dL Low 3.5-5.0 [facility] Comment on above: Performed By: #### L AB17, [id number] ####Filing Clerk: DOMENICA JARA ([phone])[address] ALP [Catalytic activity/Vol] 194 U/L High 40-150 [facility] Comment on above: Performed By: #### L AB17, [id number] ####Filing Clerk: DOMENICA JARA ([phone])[facility] ([facility])[address] [place] [address] ALT [Catalytic activity/Vol] 13 U/L Normal <40 [facility] Comment on above: Performed By: #### L AB17, [id number] ####Filing Clerk: DOMENICA JARA ([phone])[address] Anion gap [Moles/Vol] 9 mmol/L Normal 3-13 [facility] Comment on above: Performed By: #### L AB17, [id number] ####Filing Clerk: DOMENICA [phone])[facility] ([facility])[address] [place] [address] [place] AST [Catalytic activity/Vol] 47 U/L High <34 [facility] Comment on above: Performed By: #### L AB17, [id number] ####Filing Clerk: DOMENICA JARA ([phone])[facility] [place] [address] [place] Bilirubin [Mass/Vol] 0.9 mg/dL Normal <1.2 [facility] Comment on above: Performed By: #### L AB17, [id number] ####Filing Clerk: DOMENICA JARA ([phone])[facility])[address] Calcium [Mass/Vol] 9.1 mg/dL Normal 8.4-10.2 [facility] Comment on above: Performed By: #### L AB17, [id number] ####Filing Clerk: DOMENICA JARA ([phone])[facility])[address] [place] [address] [place] Chloride [Moles/Vol] 104 mmol/L Normal 98-107 [facility] Comment on above: Performed By: #### L AB17, [id number] ####Filing Clerk: DOMENICA JARA ([phone])[facility] [place] [address] [place] CO2 [Moles/Vol] 26 mmol/L Normal 22-29 [facility] Comment on above: Performed By: #### L AB17, [id number] ####Filing Clerk: DOMENICA JARA ([phone])[facility] [place] [address] [place] Creatinine [Mass/Vol] 2.35 mg/dL High 0.72-1.25 [facility] Comment on above: Performed By: #### L AB17, [id number] ####Filing Clerk: DOMENICA JARA ([phone])[facility])[address] [place] [address] [place] GLOMERULAR FILTRATION RATE ML/MIN/1.73 SQ M.PREDICTED 31.1 mL/min/1.73m*2 Low >60.0 [facility] Comment on above: Result Comment: Calc ulation based on the Chronic Kidney Disease Epidemiology Collaboration (CKD-EPI) equation refit without adjustment for race Performed By: #### L AB17, [id number] ####Filing Clerk: DOMENICA JARA ([phone])[facility])[address] [place] [address] Glucose [Mass/Vol] 83 mg/dL Normal 74-100 [facility] Comment on above: Performed By: #### L AB17, [id number] ####Filing Clerk: DOMENICA JARA ([phone])[address] Potassium [Moles/Vol] 4.1 mmol/L Normal 3.5-5.1 [facility] Comment on above: Result Comment: [facility] potassium values may be up to 0.5 mmol/L lower than serum values. Performed By: #### L AB17, [id number] ####Filing Clerk: DOMENICA JARA ([phone])[facility])[address] [place] [address] Protein [Mass/Vol] 7.3 g/dL Normal 6.4-8.3 [facility] Comment on above: Performed By: #### L AB17, [id number] ####Filing Clerk: DOMENICA JARA ([phone])[facility])[address] [place] [address] [place] Sodium [Moles/Vol] 139 mmol/L Normal 136-145 [facility] Comment on above: Performed By: #### L AB17, [id number] ####Filing Clerk: DOMENICA JARA ([phone])[place] [address] [place] Urea nitrogen [Mass/Vol] 18 mg/dL Normal 9-23 [facility] Comment on above: Performed By: #### L AB17, [id number] ####Filing Clerk: DOMENICA JARA ([phone])[facility] ([facility])[address] [place], [place] [id number] [facility] Comprehensive metabolic 1998 panelon 03-16-2025 Albumin [Mass/Vol] 2 g/dL Low 3.5 - 5.0 g/dL [facility] ALP [Catalytic activity/Vol] 194 U/L High 40 - 150 U/L [facility] ALT [Catalytic activity/Vol] 13 U/L NINF - 40 U/L [facility] Anion gap [Moles/Vol] 9 mmol/L 3 - 13 mmol/L [facility] AST [Catalytic activity/Vol] 47 U/L High NINF - 34 U/L [facility] Bilirubin [Mass/Vol] 0.9 mg/dL NINF - 1.2 mg/dL [facility] Calcium [Mass/Vol] 9.1 mg/dL 8.4 - 10. 2 mg/dL [facility] Chloride [Moles/Vol] 104 mmol/L 98 - 10 7 mmol/L [facility] CO2 [Moles/Vol] 26 mmol/L 22 - 29 mmol/L [facility] Creatinine [Mass/Vol] 2.35 mg/dL High 0.72 - 1.25 mg/dL [facility] GFR/1.73 sq M.predicted (S/P/Bld) [Vol rate/Area] 31.1 mL/min Low - PINF [facility] Comment on above: Calculation based on the Chronic Kidney Disease Epidemiology Collaboration (CKD-EPI) equation refit without adjustment for race Glucose [Mass/Vol] 83 mg/dL 74 - 100 mg/dL [facility] Interpretation and review of laboratory results Abnormal [facility] Potassium [Moles/Vol] 4.1 mmol/L 3.5 - 5.1 mmol/L [facility] Comment on above: Plasma potassium macey ues may be up to 0.5 mmol/L lower than serum values. Protein [Mass/Vol] 7.3 g/dL 6.4 - 8.3 g/dL [facility] Sodium [Moles/Vol] 139 mmol/L 136 - 145 mmol/L [facility] Urea nitrogen [Mass/Vol] 18 mg/dL 9 - 23 mg/d L [facility] - Chemistry and C hemistry - challengeon 03-16-2025 Magnesium [Mass/Vol] 2 mg/dL 1.6 - 2 .6 mg/dL [facility] - Coagulationon 0 03-16-2025 PT Coag (Bld) [Time] 17.3 s High 9.0 - 12.0 s [facility] MAGNESIUMon 03-16-2025 Magnesium [Mass/Vol] 2.0 mg/dL Normal 1.6-2.6 [facility] Comment on above: Result Comment: ARPAN R COMMENTS:Higher values can be expected in females during menses. Performed By: #### L AB17, [id number] ####Filing Clerk: DOMENICA JARA ([phone])[facility])[address] [place] [address] Magnesium [Mass/Vol]on 03-16 Interpretation and review of laboratory results Normal [facility] Higher values can be expected in females during menses. [facility] No Panel Informationon 03-16 [facility] PROTHROMBIN TIMEon INR Coag (PPP) [Relative time] 1.7 {INR} High 0.9-1.1 [facility] Comment on above: Result Comment: Vaughn [...] Myocardial Infarction Performed By: #### L AB320 ####Filing Clerk: DOMENICA JARA ([phone])[facility])[address] [place] [address] PT Coag (PPP) [Time] 17.3 s High 9.0-12.0 [facility] Comment on above: Performed By: #### L AB320 ####Filing Clerk: DOMENICA JARA ([phone])[facility])[address] [place] [address] PT Coag (Bld) [Time]on 03-16 INR Coag (PPP) [Relative time] 1.7 {INR} High 0.9 - 1.1 [facility] Comment on above: Recommended Anticoag ulant [...] Interpretation and review of laboratory results Abnormal [facility] Progress Noteon 03-16-2025 Progress Note Normal [facility] Progress Note Normal [facility] Progress Note Normal [facility] Progress Note Normal [facility] Progress Note Normal [facility] 30on 03-15-2025 30 Normal [facility] 30 Normal [facility] [id number] 03-15-2025 [id number] Normal [facility] CBC (HEMOGRAM)on 03-15-2025 Erythrocyte distribution width (RBC) [Ratio] 21.3 % High 11.5-15.0 [facility] Comment on above: Performed By: #### L AB294 ####Filing Clerk: DOMENICA JARA ([phone])[address] Hematocrit (Bld) [Volume fraction] 30.1 % Low 40.0-52.0 [facility] Comment on above: Performed By: #### L AB294 ####Filing Clerk: DOMENICA JARA ([phone])[address] Hemoglobin (Bld) [Mass/Vol] 9.2 g/dL Low 13.0-18.0 [facility] Comment on above: Performed By: #### L AB294 ####Filing Clerk: DOMENICA JARA ([phone])[facility])[address] [place] [address] MCH (RBC) [Entitic mass] 30.5 pg Normal 26.0-34.0 [facility] Comment on above: Performed By: #### L AB294 ####Filing Clerk: DOMENICA JARA ([phone])[facility])[address] [place] [address] MCHC 30.6 % Normal 30.5-36.0 [facility] Comment on above: Performed By: #### L AB294 ####Filing Clerk: DOMENICA JARA ([phone])[facility])[address] [place] [address] MCV (RBC) [Entitic vol] 99.7 fL High 77.0-99.0 [facility] Comment on above: Performed By: #### L AB294 ####Filing Clerk: DOMENICA JARA ([phone])[facility])[address] [place] [address] Platelet mean volume (Bld) [Entitic vol] 9.0 fL Normal 9.0-12.7 [facility] Comment on above: Performed By: #### L AB294 ####Filing Clerk: DOMENICA JARA ([phone])[facility] ([facility])[address] [place] [address] Platelets (Bld) [#/Vol] 392 10*3/uL Normal 140-440 [facility] Comment on above: Performed By: #### L AB294 ####Filing Clerk: DOMENICA JARA ([phone])[facility])[address] [place] [address] RBC (Bld) [#/Vol] 3.02 10*6/uL Low 4.40-5.90 [facility] Comment on above: Performed By: #### L AB294 ####Filing Clerk: DOMENICA JARA ([phone])[facility])[address] [place] [address] WBC (Bld) [#/Vol] 6.7 10*3/uL Normal 3.6-10.7 [facility] Comment on above: Performed By: #### L AB294 ####Filing Clerk: DOMENICA JARA ([phone])[facility] ([facility])[address] [place] [address] CBC panel Auto (Bld)on 03-15 Erythrocyte distribution width (RBC) [Ratio] 21.3 % High 11.5 - 15.0 % [facility] Hematocrit (Bld) [Volume fraction] 30.1 % Low 40.0 - 52.0 % [facility] Hemoglobin (Bld) [Mass/Vol] 9.2 g/dL Low 13.0 - 18.0 g/dL [facility] Interpretation and review of laboratory results Abnormal [facility] MCH (RBC) [Entitic mass] 30.5 pg 26. 0 - 34.0 pg [facility] MCHC (RBC) [Mass/Vol] 30.6 % 30.5 - 36.0 % [facility] MCV (RBC) [Entitic vol] 99.7 fL High 77.0 - 99.0 fL [facility] Platelet mean volume (Bld) [Entitic vol] 9 fL 9.0 - 12.7 fL [facility] Platelets (Bld) [#/Vol] 392 10*3/uL 140 - 440 10*3/uL [facility] RBC (Bld) [#/Vol] 3.02 10*6/uL Low 4.40 - 5.9 0 10*6/uL [facility] WBC (Bld) [#/Vol] 6.7 10*3/uL 3.6 - 10.7 10*3/uL [facility] COMPREHENSIVE METABOLIC PANE Victor M 03-15-2025 Albumin [Mass/Vol] 2.0 g/dL Low 3.5-5.0 [facility] Comment on above: Performed By: #### L AB103, LAB17 ####Filing Clerk: DOMENICA JARA ([phone])[facility] ([facility])[address] [place] [address] ALP [Catalytic activity/Vol] 201 U/L High 40-150 [facility] Comment on above: Performed By: #### L AB103, LAB17 ####Filing Clerk: DOMENICA JARA ([phone])[facility] ([facility])[address] [place] [address] ALT [Catalytic activity/Vol] 14 U/L Normal <40 [facility] Comment on above: Performed By: #### L AB103, LAB17 ####Filing Clerk: DOMENICA JARA ([phone])[facility] ([facility])[address] [place] [address] Anion gap [Moles/Vol] 11 mmol/L Normal 3-13 [facility] Comment on above: Performed By: #### L AB103, LAB17 ####Filing Clerk: DOMENICA JARA ([phone])[facility] ([facility])[address] [place] [address] AST [Catalytic activity/Vol] 49 U/L High <34 [facility] Comment on above: Performed By: #### L AB103, LAB17 ####Filing Clerk: DOMENICA JARA ([phone])[facility] ([facility])[address] [place] [address] Bilirubin [Mass/Vol] 0.8 mg/dL Normal <1.2 [facility] Comment on above: Performed By: #### L AB103, LAB17 ####Filing Clerk: DOMENICA JARA ([phone])[facility] ([facility])[address] [place] [address] Calcium [Mass/Vol] 9.2 mg/dL Normal 8.4-10.2 [facility] Comment on above: Performed By: #### L VARGHESE, LAB17 ####Filing Clerk: DOMENICA JARA ([phone])[facility] ([facility])[address] [place] [address] [place] Chloride [Moles/Vol] 100 mmol/L Normal 98-107 [facility] Comment on above: Performed By: #### L AB103, LAB17 ####Filing Clerk: DOMENICA JARA ([phone])[facility])[address] [place] [address] [place] CO2 [Moles/Vol] 28 mmol/L Normal 22-29 [facility] Comment on above: Performed By: #### L AB103, LAB17 ####Filing Clerk: DOMENICA JARA ([phone])[facility])[address] [place] [address] Creatinine [Mass/Vol] 3.13 mg/dL High 0.72-1.25 [facility] Comment on above: Performed By: #### L AB103, LAB17 ####Filing Clerk: DOMENICA JARA ([phone])[facility])[address] [place] [address] [place] GLOMERULAR FILTRATION RATE ML/MIN/1.73 SQ M.PREDICTED 22.0 mL/min/1.73m*2 Low >60.0 [facility] Comment on above: Result Comment: Calc ulation based on the Chronic Kidney Disease Epidemiology Collaboration (CKD-EPI) equation refit without adjustment for race Performed By: #### L VARGHESE, LAB17 ####Filing Clerk: DOMENICA JARA ([phone])[facility])[address] [place] [address] Glucose [Mass/Vol] 91 mg/dL Normal 74-100 [facility] Comment on above: Performed By: #### L VARGHESE, LAB17 ####Filing Clerk: DOMENICA JARA ([phone])[facility])[address] [place] [address] Potassium [Moles/Vol] 4.5 mmol/L Normal 3.5-5.1 [facility] Comment on above: Result Comment: [facility] potassium values may be up to 0.5 mmol/L lower than serum values. Performed By: #### L AB103, LAB17 ####Filing Clerk: DOMENICA JRAA ([phone])[facility])[address] [place] [address] Protein [Mass/Vol] 7.6 g/dL Normal 6.4-8.3 [facility] Comment on above: Performed By: #### L AB103, LAB17 ####Filing Clerk: DOMENICA JARA ([phone])[facility])[address] [place] [address] [place] Sodium [Moles/Vol] 139 mmol/L Normal 136-145 [facility] Comment on above: Performed By: #### L AB103, LAB17 ####Filing Clerk: DOMENICA JARA ([phone])[facility] ([facility])[address] [place] [address] Urea nitrogen [Mass/Vol] 30 mg/dL High 9-23 [facility] Comment on above: Performed By: #### L AB103, LAB17 ####Filing Clerk: DOMENICA JARA ([phone])[facility] [place] [address] Comprehensive metabolic 1998 panelOrdered By: Jenni Romano on 03-15-2025 Albumin [Mass/Vol] 2 g/dL Low 3.5 - 5.0 g/dL [facility] ALP [Catalytic activity/Vol] 201 U/L High 40 - 150 U/L [facility] ALT [Catalytic activity/Vol] 14 U/L NINF - 40 U/L [facility] Anion gap [Moles/Vol] 11 mmol/L 3 - 13 mmol/L [facility] AST [Catalytic activity/Vol] 49 U/L High NINF - 34 U/L [facility] Bilirubin [Mass/Vol] 0.8 mg/[facility] mg/dL [facility] Calcium [Mass/Vol] 9.2 mg/dL 8.4 - 10. 2 mg/dL [facility] Chloride [Moles/Vol] 100 mmol/L 98 - 10 7 mmol/L [facility] CO2 [Moles/Vol] 28 mmol/L 22 - 29 mmol/L [facility] Creatinine [Mass/Vol] 3.13 mg/dL High 0.72 - 1.25 mg/dL [facility] GFR/1.73 sq M.predicted (S/P/Bld) [Vol rate/Area] 22 mL/min Low - PINF [facility] Comment on above: Calculation based on the Chronic Kidney Disease Epidemiology Collaboration (CKD-EPI) equation refit without adjustment for race Glucose [Mass/Vol] 91 mg/dL 74 - 100 mg/dL [facility] Interpretation and review of laboratory results Abnormal [facility] Potassium [Moles/Vol] 4.5 mmol/L 3.5 - 5.1 mmol/L [facility] Comment on above: Plasma potassium macey ues may be up to 0.5 mmol/L lower than serum values. Protein [Mass/Vol] 7.6 g/dL 6.4 - 8.3 g/dL [facility] Sodium [Moles/Vol] 139 mmol/L 136 - 145 mmol/L [facility] Urea nitrogen [Mass/Vol] 30 mg/dL High 9 - 23 mg/d L [facility] Consulton 03-15-2025 Consult Normal [facility] Consult Normal [facility] FREE T4on 03-15-2025 Free T4 [Mass/Vol] 0.89 ng/dL Normal 0.70-1.48 [facility] Comment on above: Performed By: #### L AB127 ####Filing Clerk: DOMENICA JARA ([phone])[address] Free T4 [Mass/Vol]on 025 Free T4 Dialysis [Mass/Vol] 0.89 ng/dL 0.70 - 1.48 ng/dL [facility] Interpretation and review of laboratory results Normal [facility] Laboratory - Chemistry and C hemistry - challengeon 03-15-2025 Magnesium [Mass/Vol] 2 mg/dL 1.6 - 2 .6 mg/dL [facility] - Coagulationon 0 03-15-2025 PT Coag (Bld) [Time] 17.9 s High 9.0 - 12.0 s [facility] MAGNESIUMon 03-15-2025 Magnesium [Mass/Vol] 2.0 mg/dL Normal 1.6-2.6 [facility] Comment on above: Result Comment: ARPAN R COMMENTS:Higher values can be expected in females during menses. Performed By: #### L AB103, LAB17 ####Filing Clerk: DOMENICA JARA ([phone])[address] Magnesium [Mass/Vol]on 03-15 Interpretation and review of laboratory results Normal [facility] Higher values can be expected in females during menses. [facility] Nursing Noteon 03-15-2025 Nursing Note Normal [facility] Nursing Note Normal [facility] PROTHROMBIN TIMEon INR Coag (PPP) [Relative time] 1.7 {INR} High 0.9-1.1 [facility] Comment on above: Result Comment: Vaughn [...] Myocardial Infarction Performed By: #### L AB320 ####Filing Clerk: DOMENICA JARA ([phone])[facility] ([facility])[address] [place] [address] PT Coag (PPP) [Time] 17.9 s High 9.0-12.0 [facility] Comment on above: Performed By: #### [place] AB320 ####Filing Clerk: DOMENICA JARA ([phone])[facility] ([facility])[address] [place] [address] [place] PT Coag (Bld) [Time]on 03-15 INR Coag (PPP) [Relative time] 1.7 {INR} High 0.9 - 1.1 [facility] Comment on above: Recommended Anticoag ulant [...] Interpretation and review of laboratory results Abnormal [facility] Progress Noteon 03-15-2025 Progress Note Normal [facility] Progress Note Normal [facility] Progress Note Normal [facility] Progress Note Normal [facility] Prothrombin Time w/INRon INR Normal [facility] Comment on above: Order Comment: 413.2 Result Comment: [facility] Performed By: #### L 300.3900 #### [facility] [address] [place], [place], [id number] PROTIME Normal 11.7-14.9 [facility] Comment on above: Order Comment: 413.2 Result Comment: [facility] Performed By: #### L [id number] #### [facility] [address] [place], [place], [id number] [place] Lower extremity arteryOrd ered By: Sulaiman Mullen on 03-15-2025 Right arm BP 130 mmHg [employer] Work Phone: [place] Lower extremity arteryon 03-15-2025 [...] feet. CV CPACS 30on 03-14-2025 30 Normal [facility] [facility] [id number] 03-14-2025 [id number] Normal [facility] BASIC METABOLIC PANELon 02-25 Anion gap [Moles/Vol] 11 mmol/L Normal 3-13 [facility] Comment on above: Performed By: #### L AB15, [id number], LAB18 ####Filing Clerk: DOMENICA JARA ([phone])[facility] ([facility])[address] [place] [address] Calcium [Mass/Vol] 10.1 mg/dL Normal 8.4-10.2 [facility] Comment on above: Performed By: #### L AB15, [id number], LAB18 ####Filing Clerk: DOMENICA JARA ([phone])[facility] ([facility])[address] [place] [address] Chloride [Moles/Vol] 102 mmol/L Normal 98-107 [facility] Comment on above: Performed By: #### L AB15, [id number], LAB18 ####Filing Clerk: DOMENICA JARA ([phone])[facility] ([facility])[address] [place] [address] [place] CO2 [Moles/Vol] 28 mmol/L Normal 22-29 [facility] Comment on above: Performed By: #### L AB15, [id number], LAB18 ####Filing Clerk: DOMENICA JARA ([phone])[facility] ([facility])[address] [place] [address] [place] Creatinine [Mass/Vol] 4.96 mg/dL High 0.72-1.25 [facility] Comment on above: Performed By: #### L AB15, [id number], LAB18 ####Filing Clerk: DOMENICA JARA ([phone])[facility])[address] [place] [address] [place] GLOMERULAR FILTRATION RATE ML/MIN/1.73 SQ M.PREDICTED 12.7 mL/min/1.73m*2 Low >60.0 [facility] Comment on above: Result Comment: Calc ulation based on the Chronic Kidney Disease Epidemiology Collaboration (CKD-EPI) equation refit without adjustment for race Performed By: #### L AB15, [id number], LAB18 ####Filing Clerk: DOMENICA JARA ([phone])[facility])[address] [place] [address] Glucose [Mass/Vol] 99 mg/dL Normal 74-100 [facility] Comment on above: Performed By: #### L AB15, [id number], LAB18 ####Filing Clerk: DOMENICA JARA ([phone])[facility])[address] [place] [address] Potassium [Moles/Vol] 5.2 mmol/L High 3.5-5.1 [facility] Comment on above: Result Comment: [facility] potassium values may be up to 0.5 mmol/L lower than serum values. Performed By: #### L AB15, [id number], LAB18 ####Filing Clerk: DOMENICA JARA ([phone])[facility])[address] [place] [address] Sodium [Moles/Vol] 141 mmol/L Normal 136-145 [facility] Comment on above: Performed By: #### Tameka AB15, [id number], LAB18 ####Filing Clerk: DOMENICA JARA ([phone])[address] Urea nitrogen [Mass/Vol] 57 mg/dL High 9-23 [facility] Comment on above: Performed By: #### L AB15, [id number], LAB18 ####Filing Clerk: DOMENICA JARA ([phone])[facility])[address] [place] [address] Basic metabolic 1998 panelOr dered By: Brandy Ross on 03-14-2025 Anion gap [Moles/Vol] 11 mmol/L 3 - 13 mmol/L [facility] Calcium [Mass/Vol] 10.1 mg/dL 8.4 - 10. 2 mg/dL [facility] Chloride [Moles/Vol] 102 mmol/L 98 - 10 7 mmol/L [facility] CO2 [Moles/Vol] 28 mmol/L 22 - 29 mmol/L [facility] Creatinine [Mass/Vol] 4.96 mg/dL High 0.72 - 1.25 mg/dL [facility] GFR/1.73 sq M.predicted (S/P/Bld) [Vol rate/Area] 12.7 mL/min Low - PINF [facility] Comment on above: Calculation based on the Chronic Kidney Disease Epidemiology Collaboration (CKD-EPI) equation refit without adjustment for race Glucose [Mass/Vol] 99 mg/dL 74 - 100 mg/dL [facility] Interpretation and review of laboratory results Abnormal [facility] Potassium [Moles/Vol] 5.2 mmol/L High 3.5 - 5.1 mmol/L [facility] Comment on above: Plasma potassium macey ues may be up to 0.5 mmol/L lower than serum values. Sodium [Moles/Vol] 141 mmol/L 136 - 145 mmol/L [facility] Urea nitrogen [Mass/Vol] 57 mg/dL High 9 - 23 mg/d L [facility] Consulton 03-14-2025 Consult Normal [facility] Consult Normal [facility] Consult Normal [facility] Consult Normal [facility] ECG 12-LEADon 03-14-2025 ECG 12-LEAD IMPRESSION: Atrial flutter IVCD, consider RBBB Probable lateral infarct, age indeterminate Anteroseptal infarct, 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 Electronically Signed On 03-14-2025 15:38:49 EDT by Ryan Magdaleno Normal [facility] LIPID PANELon 03-14-2025 Cholesterol [Mass/Vol] 159 mg/dL Normal <200 [facility] Comment on above: Performed By: #### L AB15, [id number], LAB18 ####Filing Clerk: DOMENICA JARA ([phone])[facility] [place] [address] [place] Cholesterol in HDL [Mass/Vol] 30 mg/dL Low >=60 [facility] Comment on above: Performed By: #### L AB15, [id number], LAB18 ####Filing Clerk: DOMENICA JARA ([phone])[facility] [place] [address] Cholesterol.total/Choles terol in HDL [Mass ratio] 5 {ratio} Normal [facility] Comment on above: Result Comment: Ref Range:< 3 Low Risk for CHD3-6 Mod Risk for CHD> 6 High Risk for CHD Performed By: #### L AB15, [id number], LAB18 ####Filing Clerk: DOMENICA JARA ([phone])[facility] ([facility])[address] [place] [address] LOW DENSITY LIPOPROTEIN 109 mg/dL High 0-<100 [facility] Comment on above: Performed By: #### Tameka AB15, [id number], LAB18 ####Filing Clerk: DOMENICA JARA ([phone])[facility] ([facility])[address] [place] [address] NON-HDL CHOLESTEROL, CALCULATED 129 Normal <130 [facility] Comment on above: Performed By: #### Tameka AB15, [id number], LAB18 ####Filing Clerk: DOMENICA JARA ([phone])[facility] ([facility])[address] [place] [address] Triglyceride [Mass/Vol] 98 mg/dL Normal <150 [facility] Comment on above: Performed By: #### Tameka AB15, [id number], LAB18 ####Filing Clerk: DOMENICA JARA ([phone])[facility] ([facility])[address] [place] [address] VERY LOW DENSITY LIPOPROTEIN, CALCULATED 20 mg/dL Normal <=30 [facility] Comment on above: Performed By: #### Tameka AB15, [id number], LAB18 ####Filing Clerk: DOMENICA JARA ([phone])[facility] ([facility])[address] [place] [address] Laboratory - Chemistry and C hemistry - challengeon 03-14-2025 Magnesium [Mass/Vol] 2.2 mg/dL 1.6 - 2 .6 mg/dL [facility] Lipid 1996 panelon 5 Cholesterol [Mass/Vol] 159 mg/dL NINF - 200 mg/dL [facility] Cholesterol in HDL [Mass/Vol] 30 mg/dL Low 60 - PINF mg/dL [facility] Cholesterol in LDL [Mass/Vol] 109 mg/dL High 0 - <100 [facility] [facility] Cholesterol.total/Choles terol in HDL [Mass ratio] 5 {ratio} [employer] [facility] Comment on above: Ref Range: < 3 Low Risk for CHD 3-6 Mod Risk for CHD > 6 High Risk for CHD Interpretation and review of laboratory results Abnormal [facility] NON-HDL CHOLESTEROL, CALCULATED 129 NINF - 130 [facility] Triglyceride [Mass/Vol] 98 mg/dL NINF - 150 mg/dL [facility] VERY LOW DENSITY LIPOPROTEIN, CALCULATED 20 mg/dL NINF - 30 mg/dL [facility] MAGNESIUMon 03-14-2025 Magnesium [Mass/Vol] 2.2 mg/dL Normal 1.6-2.6 [facility] Comment on above: Result Comment: ARPAN R COMMENTS:Higher values can be expected in females during menses. Performed By: #### L AB15, [id number], LAB18 ####Filing Clerk: DOMENICA JARA ([phone])[address] Magnesium [Mass/Vol]on 03-14 Interpretation and review of laboratory results Normal [facility] Higher values can be expected in females during menses. [employer] No Panel InformationOrdered By: Ryan Magdaleno on 03-14-2025 P [place] 0 degrees [employer] Work Phone: [place] Interval 0 ms [employer] Work Phone: QRS [place] 146 degrees [employer] Work Phone: QRSD Interval 127 ms [employer] Work Phone: QT Interval 397 ms [employer] Work Phone: QTC Interval 542 ms [employer] Work Phone: T Wave [place] -57 degrees [employer] Work Phone: [employer] Work Phone: No Panel Informationon 03-14 Atrial flutter IVCD, consider RBBB Probable lateral infarct, age indeterminate Anteroseptal infarct, 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 Electronically Signed On 03-14-2025 15:38:49 EDT by Ryan Yeboah MD - 03/14/2025 IMPRESSION: Atrial flutter IVCD, consider RBBB Probable lateral infarct, age indeterminate Anteroseptal infarct, 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 Electronically Signed On 03-14-2025 15:38:49 EDT by Ryan Magdaleno [facility] Nursing Noteon 03-14-2025 Nursing Note Normal [facility] Progress Noteon 03-14-2025 Progress Note Normal [facility] Progress Note Normal [facility] Progress Note Normal [facility] Vital signsOrdered By: Rayn Magdaleno on 03-14-2025 Heart rate 112 /min bpm [facility] Work Phone: 30on 03-13-2025 30 Normal [facility] BLOOD GAS, VENOUSon 03-13-20 25 AMOUNT OF OXYGEN Normal [facility] Comment on above: Result Comment: ARPAN Kaplan COMMENTS:Assessment of oxygenation is best done with an arterial blood gas determination. Reference ranges for pO2, bicarbonate, and base excess are for mixed venous blood. Specimens drawn from a peripheral vein will often have higher values. Performed By: #### L AB79 ####Filing Clerk: FENG CONSTANTINO ([phone])[facility] ([facility])[address] [place] [address] Base excess Calc (BldV) [Moles/Vol] 2.2 mmol/L Normal -3.0-3.0 [facility] Comment on above: Performed By: #### L AB79 ####Filing Clerk: FENG CONSTANTINO ([phone])[facility] ([facility])[address] [place] [address] CO2 [Moles/Vol] 28.9 mmol/L Normal 23.0-30.0 [facility] Comment on above: Performed By: #### L AB79 ####Filing Clerk: FENG CONSTANTINO ([phone])[facility] ([facility])[address] HCO3 (Bld) [Moles/Vol] 27.5 mmol/L Normal 21.0-30.0 [facility] Comment on above: Performed By: #### L AB79 ####Filing Clerk: FENG CONSTANTINO ([phone])[facility] ([facility])[address] [place] [address] Hemoglobin (Bld) [Mass/Vol] 11.8 g/dL Low Screen only [facility] Comment on above: Performed By: #### L AB79 ####Filing Clerk: FENG CONSTANTINO ([phone])[facility] [place] ([facility])[address] OXYGEN (MM HG) IN VENOUS BLOOD 33.5 mm Hg Normal [facility] Comment on above: Performed By: #### L AB79 ####Filing Clerk: FENG CONSTANTINO ([phone])[facility] ([facility])[address] [place] [address] OXYGEN SATURATION (%) IN VENOUS BLOOD 57.2 % Normal [facility] Comment on above: Performed By: #### L AB79 ####Filing Clerk: FENG CONSTANTINO ([phone])[facility] ([facility])[address] PCO2, JOHNATHAN 45.6 mm Hg Normal 38.0-56.0 [facility] Comment on above: Performed By: #### L AB79 ####Filing Clerk: FENG CONSTANTINO ([phone])[facility] ([facility])[address] PH VENOUS 7.398 Normal 7.320-7.420 [facility] Comment on above: Performed By: #### L AB79 ####Filing Clerk: FENG CONSTANTINO ([phone])[facility] ([facility])[address] SOURCE OF OXYGEN Nasal Cannula (LPM) Normal [facility] Comment on above: Performed By: #### L AB79 ####Filing Clerk: FENG CONSTANTINO ([phone])[facility] ([facility])[address] CBC W Auto Differential pane l (Bld)Ordered By: Lakisha Paula on 03-13-2025 Basophils (Bld) [#/Vol] 0.1 10*3/uL 0.0 - 0.2 10*3/uL [facility] Basophils/100 WBC (Bld) 0.6 % 0.0 - 2.0 % [facility] Eosinophils (Bld) [#/Vol] 0.2 10*3/uL 0.0 - 0.5 10*3/uL [facility] Eosinophils/100 WBC (Bld) 2 % 0.0 - 6.0 % [facility] Erythrocyte distribution width (RBC) [Ratio] 21.2 % High 11.5 - 15.0 % [facility] Hematocrit (Bld) [Volume fraction] 28.4 % Low 40.0 - 52.0 % [facility] Hemoglobin (Bld) [Mass/Vol] 8.5 g/dL Low 13.0 - 18.0 g/dL [facility] Immature granulocytes (Bld) [#/Vol] 0 10*3/uL NINF - 0.1 10*3/uL [facility] Immature granulocytes/100 WBC (Bld) 0.5 % 0.0 - 2.0 % [facility] Interpretation and review of laboratory results Abnormal [facility] Lymphocytes (Bld) [#/Vol] 1.2 10*3/uL 1.0 - 4.3 10*3/uL [facility] Lymphocytes/100 WBC (Bld) 15.4 % 15.0 - 45.0 % [facility] MCH (RBC) [Entitic mass] 29.7 pg 26. 0 - 34.0 pg [facility] MCHC (RBC) [Mass/Vol] 29.9 % Low 30.5 - 36.0 % [facility] MCV (RBC) [Entitic vol] 99.3 fL High 77.0 - 99.0 fL [facility] Monocytes (Bld) [#/Vol] 1.4 10*3/uL High 0.0 - 0.9 10*3/uL [facility] Monocytes/100 WBC (Bld) 16.9 % High 5.0 - 13.0 % [facility] Neutrophils (Bld) [#/Vol] 5.2 10*3/uL 1.8 - 7.5 10*3/uL [facility] Neutrophils/100 WBC (Bld) 64.6 % 38.0 - 82.0 % [facility] Nucleated RBC/100 WBC (Bld) [Ratio] 0 % [facility] Platelet mean volume (Bld) [Entitic vol] 9.2 fL 9.0 - 12.7 fL [facility] Platelets (Bld) [#/Vol] 392 10*3/uL 140 - 440 10*3/uL [facility] RBC (Bld) [#/Vol] 2.86 10*6/uL Low 4.40 - 5.9 0 10*6/uL [facility] WBC (Bld) [#/Vol] 8 10*3/uL 3.6 - 10.7 10*3/uL [facility] CBC WITH AUTO DIFFERENTIALon 03-13-2025 Basophils (Bld) [#/Vol] 0.1 10*3/uL Normal 0.0-0.2 [facility] Comment on above: Performed By: #### L [id number] ####Filing Clerk: FENG CONSTANTINO ([phone])[facility] ([facility])[address] [place] [address] Basophils/100 WBC (Bld) 0.6 % Normal 0.0-2.0 [facility] Comment on above: Performed By: #### L [id number] ####Filing Clerk: FENG CONSTANTINO ([phone])[facility] ([facility])[address] Eosinophils (Bld) [#/Vol] 0.2 10*3/uL Normal 0.0-0.5 [facility] Comment on above: Performed By: #### L [id number] ####Filing Clerk: FENG CONSTANTINO ([phone])[facility] ([facility])[address] Eosinophils/100 WBC (Bld) 2.0 % Normal 0.0-6.0 [facility] Comment on above: Performed By: #### L [id number] ####Filing Clerk: FENG CONSTANTINO ([phone])[facility] ([facility])[address] Erythrocyte distribution width (RBC) [Ratio] 21.2 % High 11.5-15.0 [facility] Comment on above: Performed By: #### L [id number] ####Filing Clerk: FENG CONSTANTINO ([phone])[facility] ([facility])[address] Hematocrit (Bld) [Volume fraction] 28.4 % Low 40.0-52.0 [facility] Comment on above: Performed By: #### L [id number] ####Filing Clerk: FENG CONSTANTINO ([phone])[facility] ([facility] [place] [address] Hemoglobin (Bld) [Mass/Vol] 8.5 g/dL Low 13.0-18.0 [facility] Comment on above: Performed By: #### L [id number] ####Filing Clerk: FENG CNOSTANTINO ([phone])[facility] ([facility] IMMATURE GRANS % 0.5 % Normal 0.0-2.0 [facility] Comment on above: Performed By: #### L [id number] ####Filing Clerk: FENG CONSTANTINO ([phone])[facility] ([facility] IMMATURE GRANS ABSOLUTE 0.0 10*3/uL Normal <0.1 [facility] Comment on above: Performed By: #### L [id number] ####Filing Clerk: FENG CONSTNATINO ([phone])[facility] ([facility])[address] Lymphocytes (Bld) [#/Vol] 1.2 10*3/uL Normal 1.0-4.3 [facility] Comment on above: Performed By: #### L [id number] ####Filing Clerk: FENG CONSTANTINO ([phone])[facility] ([facility])[address] Lymphocytes/100 WBC (Bld) 15.4 % Normal 15.0-45.0 [facility] Comment on above: Performed By: #### L [id number] ####Filing Clerk: FENG VILLAGOMEZMitzyGEORGE ([phone])[facility] ([facility])[address] MCH (RBC) [Entitic mass] 29.7 pg Normal 26.0-34.0 [facility] Comment on above: Performed By: #### L [id number] ####Filing Clerk: FENG COLEGEORGE ([phone])[facility] ([facility])[address] MCHC 29.9 % Low 30.5-36.0 [facility] Comment on above: Performed By: #### L [id number] ####Filing Clerk: FENG COLEGEORGE ([phone])[facility] ([facility])[address] MCV (RBC) [Entitic vol] 99.3 fL High 77.0-99.0 [facility] Comment on above: Performed By: #### L [id number] ####Filing Clerk: FENG CONSTANTINO ([phone])[facility] ([facility])[address] [place] [address] [place] Monocytes (Bld) [#/Vol] 1.4 10*3/uL High 0.0-0.9 [facility] Comment on above: Performed By: #### L [id number] ####Filing Clerk: FENG CONSTANTINO ([phone])[facility] ([facility])[address] Monocytes/100 WBC (Bld) 16.9 % High 5.0-13.0 [facility] Comment on above: Performed By: #### L [id number] ####Filing Clerk: FENG CONSTANTINO ([phone])[facility] ([facility])[address] NEUTROPHILS ABSOLUTE 5.2 10*3/uL Normal 1.8-7.5 [facility] Comment on above: Performed By: #### L [id number] ####Filing Clerk: FENG CONSTANTINO ([phone])[facility] [place] ([facility])[address] Neutrophils/100 WBC (Bld) 64.6 % Normal 38.0-82.0 [facility] Comment on above: Performed By: #### L [id number] ####Filing Clerk: FENG CONSTANTINO ([phone])[facility] [place] ([facility])[address] NRBC 0.0 /100 WBCs Normal 0.0-2.0 [facility] Comment on above: Performed By: #### L [id number] ####Filing Clerk: FENG CONSTNATINO ([phone])[facility] [place] ([facility])[address] Platelet mean volume (Bld) [Entitic vol] 9.2 fL Normal 9.0-12.7 [facility] Comment on above: Performed By: #### L [id number] ####Filing Clerk: FENG CONSTANTINO ([phone])[facility] [place] ([facility])[address] [place] [address] [place] Platelets (Bld) [#/Vol] 392 10*3/uL Normal 140-440 [facility] Comment on above: Performed By: #### L [id number] ####Filing Clerk: FENG CONSTANTINO ([phone])[facility] [place] ([facility])[address] [place] [address] [place] RBC (Bld) [#/Vol] 2.86 10*6/uL Low 4.40-5.90 [facility] Comment on above: Performed By: #### L [id number] ####Filing Clerk: FENG [phone])[facility] ([facility])[address] WBC (Bld) [#/Vol] 8.0 10*3/uL Normal 3.6-10.7 [facility] Comment on above: Performed By: #### L [id number] ####Filing Clerk: FENG CONSTANTINO ([phone])[facility] [place] ([facility])[address] COMPREHENSIVE METABOLIC PANE Victor M 03-13-2025 Albumin [Mass/Vol] 1.5 g/dL Low 3.5-5.0 [facility] Comment on above: Performed By: #### L AB17 ####Filing Clerk: FENG CONSTANTINO ([phone])[facility] [place] ([facility])[address] ALP [Catalytic activity/Vol] 122 U/L Normal 40-150 [facility] Comment on above: Performed By: #### L AB17 ####Filing Clerk: FENG CONSTANTINO ([phone])[facility] [place] ([facility])[address] ALT [Catalytic activity/Vol] 7 U/L Normal <40 [facility] Comment on above: Performed By: #### L AB17 ####Filing Clerk: FENG CONSTANTINO ([phone])[facility] [place] ([facility])[address] Anion gap [Moles/Vol] 6 mmol/L Normal 3-13 [facility] Comment on above: Performed By: #### L AB17 ####Filing Clerk: FENG CONSTANTINO ([phone])[facility] [place] ([facility])[address] AST [Catalytic activity/Vol] 37 U/L High <34 [facility] Comment on above: Performed By: #### L AB17 ####Filing Clerk: FENG CONSTANTINO ([phone])[facility] [place] ([facility])[address] Bilirubin [Mass/Vol] 0.5 mg/dL Normal <1.2 [facility] Comment on above: Performed By: #### L AB17 ####Filing Clerk: FENG CONSTANTINO ([phone])[facility] [place] ([facility])[address] Calcium [Mass/Vol] 7.3 mg/dL Low 8.4-10.2 [facility] Comment on above: Performed By: #### L AB17 ####Filing Clerk: FENG CONSTANTINO ([phone])[facility] [place] ([facility])[address] Chloride [Moles/Vol] 110 mmol/L High 98-107 [facility] Comment on above: Performed By: #### L AB17 ####Filing Clerk: FENG CONSTANTINO ([phone])[facility] [place] ([facility])[address] CO2 [Moles/Vol] 25 mmol/L Normal 22-29 [facility] Comment on above: Performed By: #### L AB17 ####Filing Clerk: FENG CONSTANTINO ([phone])[facility] [place] ([facility])[address] Creatinine [Mass/Vol] 3.32 mg/dL High 0.72-1.25 [facility] Comment on above: Performed By: #### L AB17 ####Filing Clerk: FENG CONSTANTINO ([phone])[facility] [place] ([facility])[address] [place] [address] [place] GLOMERULAR FILTRATION RATE ML/MIN/1.73 SQ M.PREDICTED 20.5 mL/min/1.73m*2 Low >60.0 [facility] Comment on above: Result Comment: Calc ulation based on the Chronic Kidney Disease Epidemiology Collaboration (CKD-EPI) equation refit without adjustment for race Performed By: #### L AB17 ####Filing Clerk: FENG CONSTANTINO ([phone])[facility] ([facility])[address] Glucose [Mass/Vol] 71 mg/dL Low 74-100 [facility] Comment on above: Performed By: #### L AB17 ####Filing Clerk: FENG DOUGIE ([phone])[facility] ([facility])[address] Potassium [Moles/Vol] 3.5 mmol/L Normal 3.5-5.1 [facility] Comment on above: Result Comment: [facility] potassium values may be up to 0.5 mmol/L lower than serum values. Performed By: #### L AB17 ####Filing Clerk: FENG COLEGEORGE ([phone])[facility] ([facility])[address] Protein [Mass/Vol] 5.5 g/dL Low 6.4-8.3 [facility] Comment on above: Performed By: #### L AB17 ####Filing Clerk: FENG VILLAGOMEZALESIA ([phone])[facility] (SBHLAB)[address] Sodium [Moles/Vol] 141 mmol/L Normal 136-145 [facility] Comment on above: Performed By: #### L AB17 ####Filing Clerk: FENG VILLAGOMEZALESIA ([phone])[facility] (SBHLAB)[address] Urea nitrogen [Mass/Vol] 41 mg/dL High 9-23 [facility] Comment on above: Performed By: #### L AB17 ####Filing Clerk: FENG CONSTANTINO ([phone])[facility] (SBHLAB)[address] CHEST WO IV CONTRASTon CT CHEST WO IV CONTRAST Normal [facility] CT Chest WO contraston 03-13 1. [...] Electronically Signed Date/Time: 03/13/2025 12:44 PM EDT [facility] Patient Name: JUN SNYDER : 1965 [...] fracture or destructive osseous lesion is identified. [facility] Bettye Ribera MD - 03/13/2025 Patient Name: JUN SNYDER : 1965 Exam [...] Electronically Signed Date/Time: 03/13/2025 12:44 PM EDT [facility] Radiology Study observation (narrative) [facility] Comprehensive Metabolic Prof ilon 03-13-2025 Bilirubin [Mass/Vol] 0.62 mg/dL Normal 0.00-1.30 [facility] Comment on above: Order Comment: 413.2 Performed By: #### L 500.6990, L100.0100, L300.3900 #### [facility] [address] [place], [address] Comprehensive metabolic 1998 panelon 03-13-2025 Albumin [Mass/Vol] 1.5 g/dL Low 3.5 - 5.0 g/dL [facility] ALP [Catalytic activity/Vol] 122 U/L 40 - 150 U/L [facility] ALT [Catalytic activity/Vol] 7 [facility] Anion gap [Moles/Vol] 6 mmol/L 3 - 13 mmol/L [facility] AST [Catalytic activity/Vol] 37 U/L High NINF - 34 U/L [facility] Bilirubin [Mass/Vol] 0.5 mg/dL NINF - 1.2 mg/dL [facility] Calcium [Mass/Vol] 7.3 mg/dL Low 8.4 - 10. 2 mg/dL [facility] Chloride [Moles/Vol] 110 mmol/L High 98 - 10 7 mmol/L [facility] CO2 [Moles/Vol] 25 mmol/L 22 - 29 mmol/L [facility] Creatinine [Mass/Vol] 3.32 mg/dL High 0.72 - 1.25 mg/dL [facility] GFR/1.73 sq M.predicted (S/P/Bld) [Vol rate/Area] 20.5 mL/min Low - PINF [facility] Comment on above: Calculation based on the Chronic Kidney Disease Epidemiology Collaboration (CKD-EPI) equation refit without adjustment for race Glucose [Mass/Vol] 71 mg/dL Low 74 - 100 mg/dL [facility] Interpretation and review of laboratory results Abnormal [facility] Potassium [Moles/Vol] 3.5 mmol/L 3.5 - 5.1 mmol/L [facility] Comment on above: Plasma potassium macey ues may be up to 0.5 mmol/L lower than serum values. Protein [Mass/Vol] 5.5 g/dL Low 6.4 - 8.3 g/dL [facility] Sodium [Moles/Vol] 141 mmol/L 136 - 145 mmol/L [facility] Urea nitrogen [Mass/Vol] 41 mg/dL High 9 - 23 mg/d L [facility] ECG 12-LEADon 03-13-2025 ECG 12-LEAD Normal [facility] ED Nursing Noteon 03-13-2025 ED Nursing Note When this RN came back from lunch Pt was already taken to [facility] by Consuelo Day. RN covering my lunch called report to RN at [facility]. Normal [facility] ED Nursing Note Called report to SWEETIE Linder at . Normal [facility] ED Nursing Note Consuelo Johnson at bedside to transport patient to [facility]. Normal [facility] ED Provider Noteon ED Provider Note Normal [facility] HIGH SENSITIVITY TROPONIN, S ERIAL BASELINEon 03-13-2025 TROPONIN HS SERIAL BASELINE 39 ng/L High <=35 [facility] Comment on above: Result Comment: In i ndividuals presenting with symptoms > 2h, a baseline troponin <= 5 ng/L suggests acutecardiac injury is unlikely and further serial testing is generally not indicated. Performed By: #### L [id number] ####Filing Clerk: FENG CONSTANTINO ([phone])[facility] ([facility])[address] [place] [address] HIGH SENSITIVITY TROPONIN, S ERIAL, SECOND TESTon 03-13-2025 2H TROPONIN HS (SERIAL 2ND TROPONIN) 44 ng/L High <=35 [facility] Comment on above: Result Comment: 2h [...] 3rd serial troponin Performed By: #### L [id number], [id number], [id number] ####Filing Clerk: DOMENICA JARA ([phone])[facility] ([address] HIGH SENSITIVITY TROPONIN, S ERIAL, THIRD TESTon 03-13-2025 4H TROPONIN HS (SERIAL 3RD TROPONIN) 50 ng/L High <=35 [facility] Comment on above: Result Comment: 4h [...] valuerequires further evaluation. Performed By: #### L [id number] ####Filing Clerk: DOMENICA JARA ([phone])[facility] ([facility])[address] [place] [address] Laboratory - Chemistry and C hemistry - challengeon 03-13-2025 TSH Qn 6.88 m[IU]/L High [facility] - Chemistry and C hemistry - challengeOrdered By: Miya Ang on 03-13-2025 Base excess Calc (BldV) [Moles/Vol] 2.2 mmol/L -3.0 - 3.0 mmol/L [facility] CO2 (BldV) [Partial pressure] 45.6 mm[Hg] [facility] CO2 [Moles/Vol] 28.9 mmol/L 23.0 - 30.0 mmol/L [facility] HCO3 (Bld) [Moles/Vol] 27.5 mmol/L 21.0 - 30.0 mmol/L [facility] Oxygen (BldV) [Partial pressure] 33.5 mm[Hg] mm Hg [facility] pH (BldV) 7.398 [pH] 7.320 - 7.420 [facility] Laboratory - Coagulationon 0 03-13-2025 PT Coag (Bld) [Time] 17.7 s High 9.0 - 12.0 s [facility] - Hematology and Cell countsOrdered By: Miya Ang on 03-13-2025 Hemoglobin (Bld) [Mass/Vol] 11.8 g/dL Low 13.5 - 17.5 g/dl [facility] - Microbiology an d Antimicrobial susceptibilityon 03-13-2025 FLUAV RNA EMMANUEL+probe Ql (Resp) Not detected Not Detected [facility] FLUBV RNA EMMANUEL+probe Ql (Resp) Not detected Not Detected [facility] RSV RNA EMMANUEL+probe Ql (Resp) Not detected Not Detected [facility] SARS-CoV-2 (COVID-19) RNA EMMANUEL+probe Ql (Resp) Not detected Not Detected [facility] SARS-CoV-2 (COVID-19) RNA EMMANUEL+probe Ql (Unsp spec) Methodology: real-time, RT-PCR The SARS-CoV-2, Flu A/B, and RSV Combo assay is intended for in vitro diagnostic use under the FDA Emergency Use Authorization (EUA). This test has not been FDA cleared or approved. In compliance with this authorization, please visit www.fda.gov/media/95 6780/download or www.[employer].gov/media/ 243/download to access the applicable information sheets. [facility] NT PRO BNPon 03-13-2025 NT PRO BNP >44158 High <125 [facility] Comment on above: Performed By: #### L [id number], [id number], [id number] ####Filing Clerk: DOMENICA JARA ([phone])[facility] ([facility])[address] [place] [address] Natriuretic peptide B [Mass/ Vol]on 03-13-2025 Interpretation and review of laboratory results Abnormal [facility] Natriuretic peptide B (Bld) [Mass/Vol] pg/mL High NINF - 125 pg/mL [facility] No Panel Informationon 03-13 4h Troponin HS (Serial 3rd Troponin) 50 ng/L High NINF - 35 ng/L [facility] Comment on above: 4h troponin (3rd [...] Interpretation and review of laboratory results Abnormal [facility] 2h Troponin HS (Serial 2nd Troponin) 44 ng/L High NINF - 35 ng/L [facility] Comment on above: 2h troponin (2nd [...] Interpretation and review of laboratory results Abnormal [facility] Interpretation and review of laboratory results Abnormal [facility] Troponin HS Serial Baseline 39 ng/L High NINF - 35 ng/L [facility] Comment on above: In individuals prese nting with symptoms > 2h, a baseline troponin <= 5 ng/L suggests acute cardiac injury is unlikely and further serial testing is generally not indicated. [facility] P [place] 0 degrees [facility] [place] Interval 0 ms [facility] QRS [place] 66 degrees [facility] QRSD Interval 113 ms [facility] QT Interval 372 ms [facility] QTC Interval 520 ms [facility] T Wave [place] 228 degrees [facility] Atrial flutter with predominant 2:1 AV [...] On 03-13-2025 08:47:27 EDT by Keiry Solares [facility] No Panel InformationOrdered By: Miya Ang on 03-13-2025 Amount Of Oxygen [facility] Interpretation and review of laboratory results Abnormal [facility] Source Of Oxygen Nasal Cannula (LPM) [facility] Assessment of oxygenation is best done with an arterial blood gas determination. Reference ranges for pO2, bicarbonate, and base excess are for mixed venous blood. Specimens drawn from a peripheral vein will often have higher values. [facility] Nursing Noteon 03-13-2025 Nursing Note Removed wound vac that patient arrived to 5w from f pictures of all wound taken on rover and saved to chart NSWto DSD applied to sacral wound Normal [facility] PROTHROMBIN TIMEon INR Coag (PPP) [Relative time] 1.7 {INR} High 0.9-1.1 [facility] Comment on above: Result Comment: Vaughn [...] Myocardial Infarction Performed By: #### L [id number] ####Filing Clerk: FENG CONSTANTINO ([phone])[facility] (SBHLAB)[address] PT Coag (PPP) [Time] 17.7 s High 9.0-12.0 [facility] Comment on above: Performed By: #### L [id number] ####Filing Clerk: FENG CONSTANTINO ([phone])[facility] (SBHLAB)[address] PT Coag (Bld) [Time]on 03-13 INR Coag (PPP) [Relative time] 1.7 {INR} High 0.9 - 1.1 [facility] Comment on above: Recommended Anticoag ulant [...] Interpretation and review of laboratory results Abnormal [facility] SARS-COV-2, FLU A/B, AND RSV COMBOon 03-13-2025 SARS-CoV-2 (COVID-19) RNA EMMANUEL+probe Ql (Unsp spec) Normal [facility] Comment on above: Performed By: #### L [id number] ####Filing Clerk: FENG CONSTANTINO ([phone])[facility] (SBHLAB)[address] SARS-CoV-2, Flu A/B, and RSV Comboon 03-13-2025 Interpretation and review of laboratory results Normal [facility] THYROID STIMULATING HORMONEo n 03-13-2025 THYROID STIMULATING HORMONE 6.88 uIU/mL High 0.35-4.94 [facility] Comment on above: Performed By: #### L [id number], [id number], [id number] ####Filing Clerk: DOMENICA JARA ([phone])[facility] [place] [address] [place] TSH Qnon 03-13-2025 Interpretation and review of laboratory results Abnormal [facility] Vital signsOrdered By: Delicia Ang on 03-13-2025 Oxygen saturation in Venous blood 57.2 % [facility] Vital signson 03-13-2025 Heart rate 117 /min bpm [facility] XR Chest Single viewon 03-13 1. Limited supine study. 2. Cardiomegaly with probable pulmonary venous congestion. 3. Hyperinflated lungs with chronic, ill-defined opacities in both lungs which are most likely areas of fibrosis. No definite lung consolidation. Report Dictated on Electronically Signed By: Bettye Ribera MD Electronically Signed Date/Time: 03/13/2025 9:18 AM [facility] Patient Name: JUN SNYDER : 1965 [...] Biapical pleural thickening is chronic. Bones: Unremarkable [facility] Bettye Ribera MD - 03/13/2025 Patient Name: JUN SNYDER : 1965 Exam Date/Time: 03/13/2025 09:06 Procedure: XR CHEST 1 VIEW Ordering Provider: KATIRAI, , ANIS Reason For Exam: shortness of breath, [...] Electronically Signed Date/Time: 03/13/2025 9:18 AM EDT [facility] Radiology Study observation (narrative) [facility] XR Chest Single viewOrdered By: Bettye Ribera on 03-13-2025 [facility] Work Phone: Absolute lymphocyte countOrd ered By: Jayesh Stubbs on 03-12-2025 Lymphocytes Auto (Unsp spec) [#/Vol] 1.12 10*3/uL 0.83-4.51 [facility] Absolute neutrophil countOrd ered By: Jayesh Stubbs on 03-12-2025 Neutrophils (Bld) [#/Vol] 4.3 10*3/uL 2.0-7.7 [facility] Anion gap in Serum or Plasma Ordered By: Jayesh Stubbs on 03-12-2025 Anion gap [Moles/Vol] 13 mmol/L 5-15 [facility] Automated lymphocyte count a s percentage of total leukocytesOrdered By: Jayesh Stubbs on 03-12-2025 Lymphocytes/100 WBC Auto (Unsp spec) 16.9 % Low 19-41 [facility] BUN/creatinine ratioOrdered By: Jayesh Stubbs on 03-12-2025 Urea nitrogen/Creatinine [Mass ratio] 11.8 mg/mg 10-20 [facility] Basophil percentageOrdered B y: Jayesh Stubbs on 03-12-2025 Basophils/100 WBC (Bld) 2.0 % High 0-1 [facility] Bilirubin, totalOrdered By: Jayesh Stubbs on 03-12-2025 Bilirubin [Mass/Vol] 0.62 mg/dL 0.00-1.30 [facility] CBC W/Diff, Automatedon 02-25 Anisocytosis Ql (Bld) 1+ Normal [facility] Comment on above: Order Comment: 413.2 Performed By: #### L 500.4050, L100.0100, L300.3900 #### [facility] [address] [place], [place], [id number] Carbon dioxide, total [Moles /volume] in Central venous bloodOrdered By: Jayesh Stubbs on 03-12-2025 CO2 [Moles/Vol] 27.8 mmol/L 21.0-32.0 [facility] Chloride assayOrdered By: George Dorado on 03-12-2025 Chloride [Moles/Vol] 98 mmol/L 98-108 [facility] Eosinophil percentageOrdered By: Jayesh Stubbs on 03-12-2025 Eosinophils/100 WBC (Bld) 2.3 % 0-5 [facility] Erythrocyte distribution wid th ratioOrdered By: Jayesh Stubbs on 03-12-2025 Erythrocyte distribution width (RBC) [Ratio] 21.6 % High 11.6-14.6 [facility] Erythrocyte distribution wid th standard deviationOrdered By: Jayesh Stubbs on 03-12-2025 Erythrocyte distribution width (RBC) [Ratio] 79.4 fl High 35.1-43.9 [facility] Glomerular filtration rate ( GFR) estimation/1.73 sq m using serum, plasma, or whole bOrdered By: Jayesh Stubbs on 03-12-2025 GFR/1.73 sq M.predicted among non-blacks MDRD (S/P/Bld) [Vol rate/Area] 14 mL/min/{1.73_m2} Low >60 [facility] Comment on above: mL/min/1.73m2 CKD-EP I Creatinine Equation (2020) Hematocrit Auto (Bld) [Volum e fraction]Ordered By: Jayesh Stubbs on 03-12-2025 Hematocrit (Bld) [Volume fraction] 28.7 % Low 40-54 [facility] Hemoglobin measurementOrdere d By: Jayesh Stubbs on 03-12-2025 Hemoglobin (Bld) [Mass/Vol] 8.7 g/dL Low 13.0-16.5 [facility] Immature granulocytes/100 WB C Auto (Bld)Ordered By: Jayesh Stubbs on 03-12-2025 Immature granulocytes/100 WBC (Bld) 0.300 % 0.0-0.9 [facility] Comment on above: IG% - Immature Granu locytes (promyelocytes, myelocytes and metamyelocytes) > 1% indicates that a LEFT SHIFT is Present. International normalized rat io (INR) calculationOrdered By: Jayesh Stubbs on 03-12-2025 INR Coag (Bld) [Relative time] 1.9 {INR} [facility] - Chemistry and C hemistry - challengeOrdered By: Jayesh Stubbs on 03-12-2025 AST [Catalytic activity/Vol] 47 U/L High <38 [facility] - Hematology and Cell countsOrdered By: Jayesh Stubbs on 03-12-2025 Anisocytosis Ql (Bld) 1+ [facility] MCV (mean corpuscular volume ) determinationOrdered By: Jayesh Stubbs on 03-12-2025 MCV (RBC) [Entitic vol] 100.3 fL High 80-94 [facility] Mean corpuscular hemoglobin (MCH) determinationOrdered By: Jayesh Stubbs on 03-12-2025 MCH (RBC) [Entitic mass] 30.4 pg 27.0-32.0 [facility] Mean corpuscular hemoglobin concentration (MCHC) determinationOrdered By: Jayesh Stubbs on 03-12-2025 MCHC (RBC) [Mass/Vol] 30.3 g/dL Low 32-36 [facility] Mean platelet volume determi nationOrdered By: Jayesh Stubbs on 03-12-2025 Platelet mean volume (Bld) [Entitic vol] 9.5 fL 6.2-12.0 [facility] Monocyte percentageOrdered B y: Jayesh Stubbs on 03-12-2025 Monocytes/100 WBC (Bld) 14.2 % High 0-10 [facility] Neutrophil percentageOrdered By: Jayesh Stubbs on 03-12-2025 Neutrophils/100 WBC (Bld) 64.3 % 47-70 [facility] Nucleated red blood cell per centageOrdered By: Jayesh Stubbs on 03-12-2025 Nucleated RBC/100 WBC (Bld) [Ratio] 0.3 % 0-5 [facility] Platelet countOrdered By: George Dorado on 03-12-2025 Platelets (Bld) [#/Vol] 404 10*3/uL 150-450 [facility] Potassium measurement (mass/ volume)Ordered By: Jayesh Stubbs on 03-12-2025 Potassium (Unsp spec) [Mass/Vol] 4.1 mmol/L 3.3-5.1 [facility] Prothrombin Time w/INRon INR Coag (PPP) [Relative time] 1.9 {INR} Normal [facility] Comment on above: Order Comment: 413.2 Performed By: #### L 500.4050, L100.0100, L300.3900 #### [facility] [address] [place], [address] PT Coag (PPP) [Time] 22.4 s High 11.7-14.9 [facility] Comment on above: Order Comment: 413.2 Performed By: #### L 500.4050, L100.0100, L300.3900 #### [facility] [address] [place], [address] Prothrombin timeOrdered By: Jayesh Stubbs on 03-12-2025 PT Coag (PPP) [Time] 22.4 s High 11.7-14.9 [facility] RBC Auto (Bld) [#/Vol]Ordere d By: Jayesh Stubbs on 03-12-2025 RBC (Bld) [#/Vol] 2.86 10*6/uL Low 4.6-6.2 [facility] Serum creatinine measurement (mass/volume)Ordered By: Jayesh Stubbs on 03-12-2025 Creatinine [Mass/Vol] 4.67 mg/dL High 0.70-1.20 [facility] Serum globulin measurementOr dered By: Jayesh Stubbs on 03-12-2025 Globulin (S) [Mass/Vol] 4.1 g/dL 2.2-4.2 [facility] Serum glucose measurement (m ass/volume)Ordered By: Jayesh Stubbs on 03-12-2025 Glucose [Mass/Vol] 102 mg/dL High 70-99 [facility] Serum or plasma alanine mayorga otransferase (ALT) measurementOrdered By: Jayesh Stubbs on 03-12-2025 ALT [Catalytic activity/Vol] 20 U/L <47 [facility] Serum or plasma albumin audrey urement (mass/volume)Ordered By: Jayesh Stubbs on 03-12-2025 Albumin [Mass/Vol] 3.0 g/dL Low 3.5-5.0 [facility] Serum or plasma albumin/glob ulin mass ratioOrdered By: Jayesh Stubbs on 03-12-2025 Albumin/Globulin [Mass ratio] 0.7 {ratio} Low 0.9-2.4 [facility] Serum or plasma alkaline jacob sphatase measurementOrdered By: Jayesh Stubbs on 03-12-2025 ALP [Catalytic activity/Vol] 171 U/L High 40-129 [facility] Serum or plasma calcium audrey urement (mass/volume)Ordered By: Jayesh Stubbs on 03-12-2025 Calcium [Mass/Vol] 9.9 mg/dL 7.6-11.0 [facility] Serum or plasma urea nitroge n measurement (mass/volume)Ordered By: Jayesh Stubbs on 03-12-2025 Urea nitrogen [Mass/Vol] 55 mg/dL High 4-19 [facility] Sodium levelOrdered By: George Stubbs on 03-12-2025 Sodium [Moles/Vol] 139 mmol/L 133-145 [facility] Total proteinOrdered By: Sonia Stubbs on 03-12-2025 Protein [Mass/Vol] 7.1 g/dL 5.9-8.4 [facility] White blood cell (WBC) count Ordered By: Jayesh Stubbs on 03-12-2025 WBC (Bld) [#/Vol] 6.6 10*3/uL 4.4-11.0 [facility] Potassiumon 03-09-2025 Potassium [Moles/Vol] 4.1 mmol/L Normal 3.3-5.1 [facility] Comment on above: Order Comment: 413-2 Performed By: #### L [id number] #### [facility] [address] [place], [address] Potassium measurement (mass/ volume)Ordered By: Jayesh Stubbs on 03-09-2025 Potassium (Unsp spec) [Mass/Vol] 4.1 mmol/L 3.3-5.1 [facility] 36on 03-08-2025 36 2nd attempt called and spoke to the Alyssa the Nurse for the patient at the facility he lives at. She states Sabino is the person who schedules the appointments and she is on vacation and wont be back till next Wednesday. I will try again next wednesday [facility] Progress Noteon 03-08-[address] [facility] 36on 03-06-2025 36 Pt DC to [facility] [id number] 03-05-2025 [id number] [facility] [phone] Auth is now pending with [facility] for [facility]. Auth ID: [id number] . The insurance needs PT and OT notes- as PT note yesterday incomplete , they are both requested . [facility] [phone] [facility] [phone] Discharge med list transmitted to [facility] via [employer] per TCC request. [facility] [phone] [facility] [phone] [facility] APTTon 03-05-2025 aPTT Coag (Bld) [Time] 37.6 s High 20.0-30.5 [facility] Comment on above: Result Comment: ARPAN R COMMENTS:NOTE: The therapeutic time for Heparin anticoagulation, based on Xa activity inhibition, is an APTT of 46-80 seconds. Performed By: #### L [id number], [id number] ####Filing Clerk: DOMENICA JARA ([phone])[facility] [place] [address] BASIC METABOLIC PANELon 06-0 Anion gap [Moles/Vol] 8 mmol/L Normal 3-13 [facility] Comment on above: Performed By: #### L [id number] ####Filing Clerk: DOMENICA JARA ([phone])[facility] ([facility])[address] [place] [address] Calcium [Mass/Vol] 9.7 mg/dL Normal 8.4-10.2 [facility] Comment on above: Performed By: #### L AB15 ####Filing Clerk: DOMENICA JARA ([phone])[facility] [place] [address] Chloride [Moles/Vol] 102 mmol/L Normal 98-107 [facility] Comment on above: Performed By: #### L AB15 ####Filing Clerk: DOMENICA JARA ([phone])[facility] [place] [address] CO2 [Moles/Vol] 26 mmol/L Normal 22-29 [facility] Comment on above: Performed By: #### L AB15 ####Filing Clerk: DOMENICA JARA ([phone])[facility] ([facility])[address] [place] [address] Creatinine [Mass/Vol] 3.10 mg/dL High 0.72-1.25 [facility] Comment on above: Performed By: #### L AB15 ####Filing Clerk: DOMENICA JARA ([phone])[facility] [place] [address] GLOMERULAR FILTRATION RATE ML/MIN/1.73 SQ M.PREDICTED 22.3 mL/min/1.73m*2 Low >60.0 [facility] Comment on above: Result Comment: Calc ulation based on the Chronic Kidney Disease Epidemiology Collaboration (CKD-EPI) equation refit without adjustment for race Performed By: #### L AB15 ####Filing Clerk: DOMENICA JARA ([phone])[facility] ([facility])[address] [place] [address] Glucose [Mass/Vol] 68 mg/dL Low 74-100 [facility] Comment on above: Performed By: #### L AB15 ####Filing Clerk: DOMENICA JARA ([phone])[facility])[address] [place] [address] Potassium [Moles/Vol] 5.9 mmol/L High 3.5-5.1 [facility] Comment on above: Result Comment: [facility] potassium values may be up to 0.5 mmol/L lower than serum values. Performed By: #### L AB15 ####Filing Clerk: DOMENICA JARA ([phone])[facility] ([facility])[address] [place] [address] [place] Sodium [Moles/Vol] 136 mmol/L Normal 136-145 [facility] Comment on above: Performed By: #### L AB15 ####Filing Clerk: DOMENICA JARA ([phone])[facility] ([facility])[address] [place] [address] [place] Urea nitrogen [Mass/Vol] 27 mg/dL High 9-23 [facility] Comment on above: Performed By: #### L AB15 ####Filing Clerk: DOMENICA JARA ([phone])[facility])[address] [place] [address] [place] Anion gap [Moles/Vol] 9 mmol/L Normal 3-13 [facility] Comment on above: Performed By: #### L AB15 ####Filing Clerk: DOMENICA JARA ([phone])[facility] ([facility])[address] [place] [address] [place] Calcium [Mass/Vol] 9.7 mg/dL Normal 8.4-10.2 [facility] Comment on above: Performed By: #### L AB15 ####Filing Clerk: DOMENICA JARA ([phone])[facility] ([facility])[address] [place] [address] [place] Chloride [Moles/Vol] 102 mmol/L Normal 98-107 [facility] Comment on above: Performed By: #### L AB15 ####Filing Clerk: DOMENICA JARA ([phone])[facility] ([facility])[address] [place] [address] [place] CO2 [Moles/Vol] 25 mmol/L Normal 22-29 [facility] Comment on above: Performed By: #### L AB15 ####Filing Clerk: DOMENICA JARA ([phone])[facility] ([facility])[address] [place] [address] [place] Creatinine [Mass/Vol] 3.03 mg/dL High 0.72-1.25 [facility] Comment on above: Performed By: #### L AB15 ####Filing Clerk: DOMENICA JARA ([phone])[facility] ([facility])[address] [place] [address] [place] GLOMERULAR FILTRATION RATE ML/MIN/1.73 SQ M.PREDICTED 22.9 mL/min/1.73m*2 Low >60.0 [facility] Comment on above: Result Comment: Calc ulation based on the Chronic Kidney Disease Epidemiology Collaboration (CKD-EPI) equation refit without adjustment for race Performed By: #### L AB15 ####Filing Clerk: DOMENICA JARA ([phone])[facility] ([facility])[address] [place] [address] [place] Glucose [Mass/Vol] 77 mg/dL Normal 74-100 [facility] Comment on above: Performed By: #### L AB15 ####Filing Clerk: DOMENICA JARA ([phone])[facility] ([facility])[address] [place] [address] [place] Potassium [Moles/Vol] 6.6 mmol/L Critically high 3.5-5.1 [facility] Comment on above: Result Comment: Plas ma potassium values may be up to 0.5 mmol/L lower than serum values. Performed By: #### L AB15 ####Filing Clerk: DOMENICA JARA ([phone])[facility] ([facility])[address] [place] [address] Sodium [Moles/Vol] 136 mmol/L Normal 136-145 [facility] Comment on above: Performed By: #### L AB15 ####Filing Clerk: DOMENICA JARA ([phone])[facility] [place] [address] Urea nitrogen [Mass/Vol] 26 mg/dL High 9-23 [facility] Comment on above: Performed By: #### L AB15 ####Filing Clerk: DOMENICA JARA ([phone])[facility] [place] [address] Basic metabolic 1998 panelon 03-05-2025 Anion gap [Moles/Vol] 8 mmol/L 3 - 13 mmol/L [facility] Calcium [Mass/Vol] 9.7 mg/dL 8.4 - 10. 2 mg/dL [facility] Chloride [Moles/Vol] 102 mmol/L 98 - 10 7 mmol/L [facility] CO2 [Moles/Vol] 26 mmol/L 22 - 29 mmol/L [facility] Creatinine [Mass/Vol] 3.1 mg/dL High 0.72 - 1.25 mg/dL [facility] GFR/1.73 sq M.predicted (S/P/Bld) [Vol rate/Area] 22.3 mL/min Low - PINF [facility] Glucose [Mass/Vol] 68 mg/dL Low 74 - 100 mg/dL [facility] Interpretation and review of laboratory results Abnormal [facility] Potassium [Moles/Vol] 5.9 mmol/L High 3.5 - 5.1 mmol/L [facility] Sodium [Moles/Vol] 136 mmol/L 136 - 145 mmol/L [facility] Urea nitrogen [Mass/Vol] 27 mg/dL High 9 - 23 mg/d L [facility] Anion gap [Moles/Vol] 9 mmol/L 3 - 13 mmol/L [facility] Calcium [Mass/Vol] 9.7 mg/dL 8.4 - 10. 2 mg/dL [facility] Chloride [Moles/Vol] 102 mmol/L 98 - 10 7 mmol/L [facility] CO2 [Moles/Vol] 25 mmol/L 22 - 29 mmol/L [facility] Creatinine [Mass/Vol] 3.03 mg/dL High 0.72 - 1.25 mg/dL [facility] GFR/1.73 sq M.predicted (S/P/Bld) [Vol rate/Area] 22.9 mL/min Low - PINF [facility] Glucose [Mass/Vol] 77 mg/dL 74 - 100 mg/dL [facility] Interpretation and review of laboratory results Abnormal [facility] Potassium [Moles/Vol] 6.6 mmol/L Critically high 3.5 - 5.1 mmol/L [facility] Sodium [Moles/Vol] 136 mmol/L 136 - 145 mmol/L [facility] Urea nitrogen [Mass/Vol] 26 mg/dL High 9 - 23 mg/d L [facility] CBC (HEMOGRAM)on 03-05-2025 Erythrocyte distribution width (RBC) [Ratio] 21.6 % High 11.5-15.0 [facility] Comment on above: Performed By: #### L [id number] ####Filing Clerk: DOMENICA [phone])[address] Hematocrit (Bld) [Volume fraction] 25.7 % Low 40.0-52.0 [facility] Comment on above: Performed By: #### L AB294 ####Filing Clerk: DOMENICA JARA ([phone])[facility])[address] [place] [address] Hemoglobin (Bld) [Mass/Vol] 7.7 g/dL Low 13.0-18.0 [facility] Comment on above: Performed By: #### L AB294 ####Filing Clerk: DOMENICA JARA ([phone])[facility])[address] [place] [address] MCH (RBC) [Entitic mass] 29.7 pg Normal 26.0-34.0 [facility] Comment on above: Performed By: #### L AB294 ####Filing Clerk: DOMENICA JARA ([phone])[facility])[address] [place] [address] MCHC 30.0 % Low 30.5-36.0 [facility] Comment on above: Performed By: #### L AB294 ####Filing Clerk: DOMENICA JARA ([phone])[facility] ([facility])[address] [place] [address] MCV (RBC) [Entitic vol] 99.2 fL High 77.0-99.0 [facility] Comment on above: Performed By: #### L AB294 ####Filing Clerk: DOMENICA JARA ([phone])[facility])[address] [place] [address] Platelet mean volume (Bld) [Entitic vol] 9.1 fL Normal 9.0-12.7 [facility] Comment on above: Performed By: #### L AB294 ####Filing Clerk: DOMENICA JRAA ([phone])[facility])[address] [place] [address] Platelets (Bld) [#/Vol] 303 10*3/uL Normal 140-440 [facility] Comment on above: Performed By: #### L AB294 ####Filing Clerk: DOMENICA JARA ([phone])[facility])[address] [place] [address] RBC (Bld) [#/Vol] 2.59 10*6/uL Low 4.40-5.90 [facility] Comment on above: Performed By: #### L AB294 ####Filing Clerk: DOMENICA JARA ([phone])[facility])[address] [place] [address] WBC (Bld) [#/Vol] 9.1 10*3/uL Normal 3.6-10.7 [facility] Comment on above: Performed By: #### L AB294 ####Filing Clerk: DOMENICA JARA ([phone])[facility] ([facility] CBC W/Diff, Automatedon 06-0 Absolute Neut Normal 2.0-7.7 [facility] Comment on above: Order Comment: 412.2 Result Comment: [facility] Performed By: #### L 100.0100, L300.3900, L500.4050 #### [facility] [address] [place], [address] HCT Normal 40-54 [facility] Comment on above: Order Comment: 412.2 Result Comment: [facility] Performed By: #### L 100.0100, L300.3900, L500.4050 #### [facility] [address] [place], [address] HGB Normal 13.0-16.5 [facility] Comment on above: Order Comment: 412.2 Result Comment: [facility] Performed By: #### L 100.0100, L300.3900, L500.4050 #### [facility] [address] [place], [address] MCH Normal 27.0-32.0 [facility] Comment on above: Order Comment: 412.2 Result Comment: [facility] Performed By: #### L 100.0100, L300.3900, L500.4050 #### [facility] [address] [place], [address] MCHC Normal 32-36 [facility] Comment on above: Order Comment: 412.2 Result Comment: [facility] Performed By: #### L 100.0100, L300.3900, L500.4050 #### [facility] [address] [place], [address] MCV Normal 80-94 [facility] Comment on above: Order Comment: 412.2 Result Comment: [facility] Performed By: #### L 100.0100, L300.3900, L500.4050 #### [facility] [address] [place], [address] NEUT% Normal 47-70 [facility] Comment on above: Order Comment: 412.2 Result Comment: [facility] Performed By: #### L 100.0100, L300.3900, L500.4050 #### [facility] [address] [place], [address] PLT Normal 150-450 [facility] Comment on above: Order Comment: 412.2 Result Comment: [facility] Performed By: #### L 100.0100, L300.3900, L500.4050 #### [facility] [address] [place], [address] RBC Normal 4.6-6.2 [facility] Comment on above: Order Comment: 412.2 Result Comment: [facility] Performed By: #### L 100.0100, L300.3900, L500.4050 #### [facility] [address] [place], [address] RDW CV Normal 11.6-14.6 [facility] Comment on above: Order Comment: 412.2 Result Comment: [facility] Performed By: #### L 100.0100, L300.3900, L500.4050 #### [facility] [address] [place], [address] RDW SD Normal 35.1-43.9 [facility] Comment on above: Order Comment: 412.2 Result Comment: [facility] Performed By: #### L 100.0100, L300.3900, L500.4050 #### [facility] [address] [place], [address] WBC Normal 4.4-11.0 [facility] Comment on above: Order Comment: 412.2 Result Comment: [facility] Performed By: #### L 100.0100, L300.3900, L500.4050 #### [facility] [address] [place], [address] CBC panel Auto (Bld)on 03-05 Erythrocyte distribution width (RBC) [Ratio] 21.6 % High 11.5 - 15.0 % [facility] Hematocrit (Bld) [Volume fraction] 25.7 % Low 40.0 - 52.0 % [facility] Hemoglobin (Bld) [Mass/Vol] 7.7 g/dL Low 13.0 - 18.0 g/dL [facility] Interpretation and review of laboratory results Abnormal [facility] MCH (RBC) [Entitic mass] 29.7 pg 26. 0 - 34.0 pg [facility] MCHC (RBC) [Mass/Vol] 30 % Low 30.5 - 36.0 % [facility] MCV (RBC) [Entitic vol] 99.2 fL High 77.0 - 99.0 fL [facility] Platelet mean volume (Bld) [Entitic vol] 9.1 fL 9.0 - 12.7 fL [facility] Platelets (Bld) [#/Vol] 303 10*3/uL 140 - 440 10*3/uL [facility] RBC (Bld) [#/Vol] 2.59 10*6/uL Low 4.40 - 5.9 0 10*6/uL [facility] WBC (Bld) [#/Vol] 9.1 10*3/uL 3.6 - 10.7 10*3/uL [facility] Comprehensive Metabolic Prof ilon 03-05-2025 ALB Normal 3.5-5.0 [facility] Comment on above: Order Comment: 412.2 Result Comment: [facility] Performed By: #### L 100.0100, L300.3900, L500.4050 #### [facility] [address] [place], [place], [address] ALK PHOS Normal 40-129 [facility] Comment on above: Order Comment: 412.2 Result Comment: [facility] Performed By: #### L 100.0100, L300.3900, L500.4050 #### [facility] [address] [place], [address] ALT Normal <=46 [facility] Comment on above: Order Comment: 412.2 Result Comment: [facility] Performed By: #### L 100.0100, L300.3900, L500.4050 #### [facility] [address] [place], [address] AST Normal <=37 [facility] Comment on above: Order Comment: 412.2 Result Comment: [facility] Performed By: #### L 100.0100, L300.3900, L500.4050 #### [facility] [address] [place], [address] BUN Normal 4-19 [facility] Comment on above: Order Comment: 412.2 Result Comment: [facility] Performed By: #### L 100.0100, L300.3900, L500.4050 #### [facility] [address] [place], [address] BUN/CRE Normal 10-20 [facility] Comment on above: Order Comment: 412.2 Result Comment: [facility] Performed By: #### L 100.0100, L300.3900, L500.4050 #### [facility] [address] [place], [address] Calcium Normal 7.6-11.0 [facility] Comment on above: Order Comment: 412.2 Result Comment: [facility] Performed By: #### L 100.0100, L300.3900, L500.4050 #### [facility] [address] [place], [address] CL Normal 98-108 [facility] Comment on above: Order Comment: 412.2 Result Comment: [facility] Performed By: #### L 100.0100, L300.3900, L500.4050 #### [facility] [address] [place], [address] CO2 Normal 21.0-32.0 [facility] Comment on above: Order Comment: 412.2 Result Comment: [facility] Performed By: #### L 100.0100, L300.3900, L500.4050 #### [facility] [address] [place], [address] CREAT,SERUM Normal 0.70-1.20 [facility] Comment on above: Order Comment: 412.2 Result Comment: [facility] Performed By: #### L 100.0100, L300.3900, L500.4050 #### [facility] [address] [place], [address] eGFR Normal >60 [facility] Comment on above: Order Comment: 412.2 Result Comment: [facility] Performed By: #### L 100.0100, L300.3900, L500.4050 #### [facility] [address] [place], [address] GAP Normal 5-15 [facility] Comment on above: Order Comment: 412.2 Result Comment: [facility] Performed By: #### L 100.0100, L300.3900, L500.4050 #### [facility] [address] [place], [address] GLU Normal 70-99 [facility] Comment on above: Order Comment: 412.2 Result Comment: [facility] Performed By: #### L 100.0100, L300.3900, L500.4050 #### [facility] [address] [place], [address] Potassium Normal 3.3-5.1 [facility] Comment on above: Order Comment: 412.2 Result Comment: [facility] Performed By: #### L 100.0100, L300.3900, L500.4050 #### [facility] [address] [place], [address] T BILI Normal 0.00-1.30 [facility] Comment on above: Order Comment: 412.2 Result Comment: [facility] Performed By: #### L 100.0100, L300.3900, L500.4050 #### [facility] [address] [place], [address] T PROT Normal 5.9-8.4 [facility] Comment on above: Order Comment: 412.2 Result Comment: [facility] Performed By: #### L 100.0100, L300.3900, L500.4050 #### [facility] [address] [place], [address] Comprehensive Metabolic Profil Normal 133-145 [facility] Comment on above: Order Comment: 412.2 Result Comment: [facility] Performed By: #### L 100.0100, L300.3900, L500.4050 #### [facility] [address] [place], [address] Laboratory - Chemistry and C hemistry - challengeon 03-05-2025 Glucose [Mass/Vol] 142 mg/dL High 70 - 100 mg/dL [facility] Glucose [Mass/Vol] 83 mg/dL 70 - 100 mg/dL [facility] - Coagulationon 0 03-05-2025 PT Coag (Bld) [Time] 18.6 s High 9.0 - 12.0 s [facility] No Panel Informationon 03-05 Interpretation and review of laboratory results Abnormal [facility] Interpretation and review of laboratory results Normal [facility] Interpretation and review of laboratory results Abnormal [facility] PROTHROMBIN TIMEon INR Coag (PPP) [Relative time] 1.8 {INR} High 0.9-1.1 [facility] Comment on above: Result [...] Myocardial Infarction Performed By: #### Tameka AB325, [id number] ####Filing Clerk: DOMENICA JARA ([phone])[facility] ([facility])[address] [place] [address] PT Coag (PPP) [Time] 18.6 s High 9.0-12.0 [facility] Comment on above: Performed By: #### Tameka AB325, [id number] ####Filing Clerk: DOMENICA JARA ([phone])[facility] ([facility])[address] [place] [address] PT Coag (Bld) [Time]on 03-05 INR Coag (PPP) [Relative time] 1.8 {INR} High 0.9 - 1.1 [facility] Progress Noteon 03-05-[address] [facility] Progress Note Normal [facility] Progress [facility] Progress [facility] Progress Note Normal [facility] Prothrombin Time w/INRon INR Normal [facility] Comment on above: Order Comment: 412.2 Result Comment: [facility] Performed By: #### L 100.0100, L300.3900, L500.4050 #### [facility] [address] [place], [address] PROTIME Normal 11.7-14.9 [facility] Comment on above: Order Comment: 412.2 Result Comment: [facility] Performed By: #### L 100.0100, L300.3900, L500.4050 #### [facility] [address] [place], [address] aPTT Coag (Bld) [Time]on aPTT Coag (PPP) [Time] 37.6 s High 20.0 - 30.5 s [facility] 30on 03-04-2025 30 Normal [facility] [id number] 03-04-2025 [id number] Normal [facility] APTTon 03-04-2025 aPTT Coag (Bld) [Time] 52.2 s High 20.0-30.5 [facility] Comment on above: Result Comment: ARPAN Kaplan COMMENTS:NOTE: The therapeutic time for Heparin anticoagulation, based on Xa activity inhibition, is an APTT of 46-80 seconds. Performed By: #### L AB325, [id number] ####Filing Clerk: DOMENICA JARA ([phone])[facility] ([facility])[address] [place] [address] BASIC METABOLIC PANELon 06 Anion gap [Moles/Vol] 11 mmol/L Normal 3-13 [facility] Comment on above: Performed By: #### L AB15 ####Filing Clerk: DOMENICA JARA ([phone])[facility] ([facility])[address] [place] [address] Calcium [Mass/Vol] 9.4 mg/dL Normal 8.4-10.2 [facility] Comment on above: Performed By: #### L AB15 ####Filing Clerk: DOMENICA JARA ([phone])[facility] ([facility])[address] [place] [address] [place] Chloride [Moles/Vol] 103 mmol/L Normal 98-107 [facility] Comment on above: Performed By: #### L AB15 ####Filing Clerk: DOMENICA JARA ([phone])[facility] ([facility])[address] [place] [address] [place] CO2 [Moles/Vol] 27 mmol/L Normal 22-29 [facility] Comment on above: Performed By: #### L AB15 ####Filing Clerk: DOMENICA JARA ([phone])[facility] ([facility])[address] [place] [address] Creatinine [Mass/Vol] 2.41 mg/dL High 0.72-1.25 [facility] Comment on above: Performed By: #### L AB15 ####Filing Clerk: DOMENICA JARA ([phone])[facility])[address] [place] [address] [place] GLOMERULAR FILTRATION RATE ML/MIN/1.73 SQ M.PREDICTED 30.2 mL/min/1.73m*2 Low >60.0 [facility] Comment on above: Result Comment: Calc ulation based on the Chronic Kidney Disease Epidemiology Collaboration (CKD-EPI) equation refit without adjustment for race Performed By: #### L AB15 ####Filing Clerk: DOMENICA JARA ([phone])[facility])[address] [place] [address] Glucose [Mass/Vol] 99 mg/dL Normal 74-100 [facility] Comment on above: Performed By: #### L AB15 ####Filing Clerk: DOMENICA JARA ([phone])[facility])[address] [place] [address] Potassium [Moles/Vol] 5.1 mmol/L Normal 3.5-5.1 [facility] Comment on above: Result Comment: [facility] potassium values may be up to 0.5 mmol/L lower than serum values. Performed By: #### L AB15 ####Filing Clerk: DOMENICA JARA ([phone])[facility] ([facility])[address] [place] [address] [place] Sodium [Moles/Vol] 141 mmol/L Normal 136-145 [facility] Comment on above: Performed By: #### L AB15 ####Filing Clerk: DOMENICA JARA ([phone])[facility] ([facility])[address] [place] [address] Urea nitrogen [Mass/Vol] 18 mg/dL Normal 9-23 [facility] Comment on above: Performed By: #### L AB15 ####Filing Clerk: DOMENICA JARA ([phone])[facility])[address] [place] [address] Basic metabolic 1998 panelon 03-04-2025 Anion gap [Moles/Vol] 11 mmol/L 3 - 13 mmol/L [facility] Calcium [Mass/Vol] 9.4 mg/dL 8.4 - 10. 2 mg/dL [facility] Chloride [Moles/Vol] 103 mmol/L 98 - 10 7 mmol/L [facility] CO2 [Moles/Vol] 27 mmol/L 22 - 29 mmol/L [facility] Creatinine [Mass/Vol] 2.41 mg/dL High 0.72 - 1.25 mg/dL [facility] GFR/1.73 sq M.predicted (S/P/Bld) [Vol rate/Area] 30.2 mL/min Low - PINF [facility] Glucose [Mass/Vol] 99 mg/dL 74 - 100 mg/dL [facility] Interpretation and review of laboratory results Abnormal [facility] Potassium [Moles/Vol] 5.1 mmol/L 3.5 - 5.1 mmol/L [facility] Sodium [Moles/Vol] 141 mmol/L 136 - 145 mmol/L [facility] Urea nitrogen [Mass/Vol] 18 mg/dL 9 - 23 mg/d L [facility] CBC (HEMOGRAM)on 03-04-2025 Erythrocyte distribution width (RBC) [Ratio] 21.4 % High 11.5-15.0 [facility] Comment on above: Performed By: #### L [id number] ####Filing Clerk: DOMENICA JARA ([phone])[facility] ([facility])[address] [place] [address] Hematocrit (Bld) [Volume fraction] 25.9 % Low 40.0-52.0 [facility] Comment on above: Performed By: #### L AB294 ####Filing Clerk: DOMENICA JARA ([phone])[facility])[address] [place] [address] Hemoglobin (Bld) [Mass/Vol] 7.7 g/dL Low 13.0-18.0 [facility] Comment on above: Performed By: #### L AB294 ####Filing Clerk: DOMENICA JARA ([phone])[facility])[address] [place] [address] MCH (RBC) [Entitic mass] 29.3 pg Normal 26.0-34.0 [facility] Comment on above: Performed By: #### L AB294 ####Filing Clerk: DOMENICA JARA ([phone])[facility])[address] [place] [address] MCHC 29.7 % Low 30.5-36.0 [facility] Comment on above: Performed By: #### L AB294 ####Filing Clerk: DOMENICA JARA ([phone])[facility])[address] [place] [address] MCV (RBC) [Entitic vol] 98.5 fL Normal 77.0-99.0 [facility] Comment on above: Performed By: #### L AB294 ####Filing Clerk: DOMENICA JARA ([phone])[facility])[address] [place] [address] Platelet mean volume (Bld) [Entitic vol] 9.3 fL Normal 9.0-12.7 [facility] Comment on above: Performed By: #### L AB294 ####Filing Clerk: DOMENICA JARA ([phone])[facility])[address] [place] [address] Platelets (Bld) [#/Vol] 324 10*3/uL Normal 140-440 [facility] Comment on above: Performed By: #### L AB294 ####Filing Clerk: DOMENICA JARA ([phone])[facility])[address] [place] [address] RBC (Bld) [#/Vol] 2.63 10*6/uL Low 4.40-5.90 [facility] Comment on above: Performed By: #### L AB294 ####Filing Clerk: DOMENICA [phone])[facility] ([facility])[address] [place] [address] WBC (Bld) [#/Vol] 7.7 10*3/uL Normal 3.6-10.7 [facility] Comment on above: Performed By: #### L AB294 ####Filing Clerk: DOMENICA JARA ([phone])[facility] ([facility])[address] [place] [address] CBC panel Auto (Bld)on 03-04 Erythrocyte distribution width (RBC) [Ratio] 21.4 % High 11.5 - 15.0 % [facility] Hematocrit (Bld) [Volume fraction] 25.9 % Low 40.0 - 52.0 % [facility] Hemoglobin (Bld) [Mass/Vol] 7.7 g/dL Low 13.0 - 18.0 g/dL [facility] Interpretation and review of laboratory results Abnormal [facility] MCH (RBC) [Entitic mass] 29.3 pg 26. 0 - 34.0 pg [facility] MCHC (RBC) [Mass/Vol] 29.7 % Low 30.5 - 36.0 % [facility] MCV (RBC) [Entitic vol] 98.5 fL 77.0 - 99.0 fL [facility] Platelet mean volume (Bld) [Entitic vol] 9.3 fL 9.0 - 12.7 fL [facility] Platelets (Bld) [#/Vol] 324 10*3/uL 140 - 440 10*3/uL [facility] RBC (Bld) [#/Vol] 2.63 10*6/uL Low 4.40 - 5.9 0 10*6/uL [facility] WBC (Bld) [#/Vol] 7.7 10*3/uL 3.6 - 10.7 10*3/uL [facility] - Coagulationon 0 03-04-2025 PT Coag (Bld) [Time] 16.6 s High 9.0 - 12.0 s [facility] PT Coag (Bld) [Time] 15.5 s High 9.0 - 12.0 s [facility] No Panel Informationon 03-04 Interpretation and review of laboratory results Abnormal [facility] PROTHROMBIN TIMEon 03-04- 5 INR Coag (PPP) [Relative time] 1.6 {INR} High 0.9-1.1 [facility] Comment on above: Result Comment: Vaughn [...] Myocardial Infarction Performed By: #### L [id number] ####Filing Clerk: DOMENICA JARA [phone] PT Coag (PPP) [Time] 16.6 s High 9.0-12.0 [facility] Comment on above: Performed By: #### L [id number] ####Filing Clerk: DOMENICA JARA ([phone])[facility])[address] [place] [address] INR Coag (PPP) [Relative time] 1.5 {INR} High 0.9-1.1 [facility] Comment on above: Result Comment: Vaughn [...] Myocardial Infarction Performed By: #### L AB325, [id number] ####Filing Clerk: DOMENICA JARA ([phone])[facility])[address] [place] [address] [place] PT Coag (PPP) [Time] 15.5 s High 9.0-12.0 [facility] Comment on above: Performed By: #### L AB325, [id number] ####Filing Clerk: DOMENICA JARA ([phone])[facility])[address] [place] [address] PT Coag (Bld) [Time]on 03-04 INR Coag (PPP) [Relative time] 1.6 {INR} High 0.9 - 1.1 [facility] Interpretation and review of laboratory results Abnormal [facility] INR Coag (PPP) [Relative time] 1.5 {INR} High 0.9 - 1.1 [facility] Progress Noteon 03-04-2025 Progress Note Normal [facility] Progress Note Normal [facility] Progress Note Normal [facility] aPTT Coag (Bld) [Time]on aPTT Coag (PPP) [Time] 52.2 s High 20.0 - 30.5 s [facility] 30on 03-03-2025 30 Normal [facility] 30 Normal [facility] 30 Normal [facility] [id number] 03-03-2025 [id number] Normal [facility] APTTon 03-03-2025 aPTT Coag (Bld) [Time] 66.2 s High 20.0-30.5 [facility] Comment on above: Result Comment: ARPAN Kaplan COMMENTS:NOTE: The therapeutic time for Heparin anticoagulation, based on Xa activity inhibition, is an APTT of 46-80 seconds. Performed By: #### L AB325 ####Filing Clerk: DOMENICA JARA ([phone])[facility])[address] [place] [address] aPTT Coag (Bld) [Time] 52.4 s High 20.0-30.5 [facility] Comment on above: Result Comment: ARPAN Kaplan COMMENTS:NOTE: The therapeutic time for Heparin anticoagulation, based on Xa activity inhibition, is an APTT of 46-80 seconds. Performed By: #### L AB325, [id number] ####Filing Clerk: DOMENICA JARA ([phone])[facility] ([facility])[address] [place] [address] BASIC METABOLIC PANELon 06-0 Anion gap [Moles/Vol] 10 mmol/L Normal 3-13 [facility] Comment on above: Performed By: #### L AB15 ####Filing Clerk: DOMENICA JARA ([phone])[facility] ([facility])[address] [place] [address] Calcium [Mass/Vol] 9.2 mg/dL Normal 8.4-10.2 [facility] Comment on above: Performed By: #### L AB15 ####Filing Clerk: DOMENICA JARA ([phone])[facility] [place] [address] Chloride [Moles/Vol] 100 mmol/L Normal 98-107 [facility] Comment on above: Performed By: #### L AB15 ####Filing Clerk: DOMENICA JARA ([phone])[facility] [place] [address] CO2 [Moles/Vol] 29 mmol/L Normal 22-29 [facility] Comment on above: Performed By: #### L AB15 ####Filing Clerk: DOMENICA JARA ([phone])[facility] [place] [address] Creatinine [Mass/Vol] 1.92 mg/dL High 0.72-1.25 [facility] Comment on above: Performed By: #### L AB15 ####Filing Clerk: DOMENICA JARA ([phone])[facility] [place] [address] GLOMERULAR FILTRATION RATE ML/MIN/1.73 SQ M.PREDICTED 39.6 mL/min/1.73m*2 Low >60.0 [facility] Comment on above: Result Comment: Calc ulation based on the Chronic Kidney Disease Epidemiology Collaboration (CKD-EPI) equation refit without adjustment for race Performed By: #### L AB15 ####Filing Clerk: DOMENICA JARA ([phone])[facility] ([facility])[address] [place] [address] Glucose [Mass/Vol] 71 mg/dL Low 74-100 [facility] Comment on above: Performed By: #### L AB15 ####Filing Clerk: DOMENICA JARA ([phone])[facility])[address] [place] [address] Potassium [Moles/Vol] 4.8 mmol/L Normal 3.5-5.1 [facility] Comment on above: Result Comment: [facility] potassium values may be up to 0.5 mmol/L lower than serum values. Performed By: #### L AB15 ####Filing Clerk: DOMENICA JARA ([phone])[facility] ([facility])[address] [place] [address] Sodium [Moles/Vol] 139 mmol/L Normal 136-145 [facility] Comment on above: Performed By: #### L AB15 ####Filing Clerk: DOMENICA JARA ([phone])[facility] ([facility])[address] [place] [address] Urea nitrogen [Mass/Vol] 14 mg/dL Normal 9-23 [facility] Comment on above: Performed By: #### L AB15 ####Filing Clerk: DOMENICA JARA ([phone])[facility])[address] [place] [address] Anion gap [Moles/Vol] 11 mmol/L Normal 3-13 [facility] Comment on above: Performed By: #### L AB15 ####Filing Clerk: DOMENICA JARA ([phone])[facility] ([facility])[address] [place] [address] [place] Calcium [Mass/Vol] 9.8 mg/dL Normal 8.4-10.2 [facility] Comment on above: Performed By: #### L AB15 ####Filing Clerk: DOMENICA JARA ([phone])[facility] ([facility])[address] [place] [address] [place] Chloride [Moles/Vol] 101 mmol/L Normal 98-107 [facility] Comment on above: Performed By: #### L AB15 ####Filing Clerk: DOMENICA JARA ([phone])[facility])[address] [place] [address] CO2 [Moles/Vol] 28 mmol/L Normal 22-29 [facility] Comment on above: Performed By: #### L AB15 ####Filing Clerk: DOMENICA JARA ([phone])[facility])[address] [place] [address] Creatinine [Mass/Vol] 3.21 mg/dL High 0.72-1.25 [facility] Comment on above: Performed By: #### L AB15 ####Filing Clerk: DOMENICA JARA ([phone])[facility])[address] [place] [address] GLOMERULAR FILTRATION RATE ML/MIN/1.73 SQ M.PREDICTED 21.4 mL/min/1.73m*2 Low >60.0 [facility] Comment on above: Result Comment: Calc ulation based on the Chronic Kidney Disease Epidemiology Collaboration (CKD-EPI) equation refit without adjustment for race Performed By: #### L AB15 ####Filing Clerk: DOMENICA JARA ([phone])[facility])[address] [place] [address] Glucose [Mass/Vol] 93 mg/dL Normal 74-100 [facility] Comment on above: Performed By: #### L AB15 ####Filing Clerk: DOMENICA JARA ([phone])[facility])[address] [place] [address] Potassium [Moles/Vol] 6.2 mmol/L Critically high 3.5-5.1 [facility] Comment on above: Result Comment: [facility] potassium values may be up to 0.5 mmol/L lower than serum values. Performed By: #### L AB15 ####Filing Clerk: DOMNEICA JARA ([phone])[facility])[address] [place] [address] Sodium [Moles/Vol] 140 mmol/L Normal 136-145 [facility] Comment on above: Performed By: #### L AB15 ####Filing Clerk: DOMENICA JARA ([phone])[facility])[address] [place] [address] Urea nitrogen [Mass/Vol] 26 mg/dL High 9-23 [facility] Comment on above: Performed By: #### L AB15 ####Filing Clerk: DOMENICA JARA ([phone])[facility] ([facility])[address] [place] [address] Basic metabolic 1997 panelOr dered By: Piedad Alvarado on 03-03-2025 Anion gap [Moles/Vol] 10 mmol/L 3 - 13 mmol/L [facility] Calcium [Mass/Vol] 9.2 mg/dL 8.4 - 10. 2 mg/dL [facility] Chloride [Moles/Vol] 100 mmol/L 98 - 10 7 mmol/L [facility] CO2 [Moles/Vol] 29 mmol/L 22 - 29 mmol/L [facility] Creatinine [Mass/Vol] 1.92 mg/dL High 0.72 - 1.25 mg/dL [facility] GFR/1.73 sq M.predicted (S/P/Bld) [Vol rate/Area] 39.6 mL/min Low - PINF [facility] Glucose [Mass/Vol] 71 mg/dL Low 74 - 100 mg/dL [facility] Interpretation and review of laboratory results Abnormal [facility] Potassium [Moles/Vol] 4.8 mmol/L 3.5 - 5.1 mmol/L [facility] Sodium [Moles/Vol] 139 mmol/L 136 - 145 mmol/L [facility] Urea nitrogen [Mass/Vol] 14 mg/dL 9 - 23 mg/d L [facility] Basic metabolic 1997 panelOr dered By: Jenni Romano on 03-03-2025 Anion gap [Moles/Vol] 11 mmol/L 3 - 13 mmol/L [facility] Calcium [Mass/Vol] 9.8 mg/dL 8.4 - 10. 2 mg/dL [facility] Chloride [Moles/Vol] 101 mmol/L 98 - 10 7 mmol/L [facility] CO2 [Moles/Vol] 28 mmol/L 22 - 29 mmol/L [facility] Creatinine [Mass/Vol] 3.21 mg/dL High 0.72 - 1.25 mg/dL [facility] GFR/1.73 sq M.predicted (S/P/Bld) [Vol rate/Area] 21.4 mL/min Low - PINF [facility] Glucose [Mass/Vol] 93 mg/dL 74 - 100 mg/dL [facility] Interpretation and review of laboratory results Abnormal [facility] Potassium [Moles/Vol] 6.2 mmol/L Critically high 3.5 - 5.1 mmol/L [facility] Sodium [Moles/Vol] 140 mmol/L 136 - 145 mmol/L [facility] Urea nitrogen [Mass/Vol] 26 mg/dL High 9 - 23 mg/d L [facility] CBC (HEMOGRAM)on 03-03-2025 Erythrocyte distribution width (RBC) [Ratio] 20.9 % High 11.5-15.0 [facility] Comment on above: Performed By: #### L [id number] ####Filing Clerk: DOMENICA JARA ([phone])[facility])[address] [place] [address] Hematocrit (Bld) [Volume fraction] 27.8 % Low 40.0-52.0 [facility] Comment on above: Performed By: #### L AB294 ####Filing Clerk: DOMENICA JARA ([phone])[facility])[address] [place] [address] Hemoglobin (Bld) [Mass/Vol] 8.3 g/dL Low 13.0-18.0 [facility] Comment on above: Performed By: #### L AB294 ####Filing Clerk: DOMENICA JARA ([phone])[facility])[address] [place] [address] IPF 2 Normal [facility] Comment on above: Performed By: #### L AB294 ####Filing Clerk: DOMENICA JARA ([phone])[facility])[address] [place] [address] MCH (RBC) [Entitic mass] 29.5 pg Normal 26.0-34.0 [facility] Comment on above: Performed By: #### L AB294 ####Filing Clerk: DOMENICA JARA ([phone])[facility])[address] [place] [address] MCHC 29.9 % Low 30.5-36.0 [facility] Comment on above: Performed By: #### L AB294 ####Filing Clerk: DOMENICA JARA ([phone])[facility])[address] [place] [address] MCV (RBC) [Entitic vol] 98.9 fL Normal 77.0-99.0 [facility] Comment on above: Performed By: #### L AB294 ####Filing Clerk: DOMENICA JARA ([phone])[facility])[address] [place] [address] Platelet mean volume (Bld) [Entitic vol] 9.1 fL Normal 9.0-12.7 [facility] Comment on above: Performed By: #### L AB294 ####Filing Clerk: DOMENICA JARA ([phone])[facility])[address] [place] [address] Platelets (Bld) [#/Vol] 397 10*3/uL Normal 140-440 [facility] Comment on above: Performed By: #### L AB294 ####Filing Clerk: DOMENICA JARA ([phone])[facility])[address] [place] [address] RBC (Bld) [#/Vol] 2.81 10*6/uL Low 4.40-5.90 [facility] Comment on above: Performed By: #### L AB294 ####Filing Clerk: DOMENICA JARA ([phone])[facility])[address] [place] [address] WBC (Bld) [#/Vol] 8.9 10*3/uL Normal 3.6-10.7 [facility] Comment on above: Performed By: #### L AB294 ####Filing Clerk: DOMENICA JARA ([phone])[facility] ([facility] CBC panel Auto (Bld)Ordered By: Anu Graham on 03-03-2025 Erythrocyte distribution width (RBC) [Ratio] 20.9 % High 11.5 - 15.0 % [facility] Hematocrit (Bld) [Volume fraction] 27.8 % Low 40.0 - 52.0 % [facility] Hemoglobin (Bld) [Mass/Vol] 8.3 g/dL Low 13.0 - 18.0 g/dL [facility] Interpretation and review of laboratory results Abnormal [facility] IPF 2 [facility] MCH (RBC) [Entitic mass] 29.5 pg 26. 0 - 34.0 pg [facility] MCHC (RBC) [Mass/Vol] 29.9 % Low 30.5 - 36.0 % [facility] MCV (RBC) [Entitic vol] 98.9 fL 77.0 - 99.0 fL [facility] Platelet mean volume (Bld) [Entitic vol] 9.1 fL 9.0 - 12.7 fL [facility] Platelets (Bld) [#/Vol] 397 10*3/uL 140 - 440 10*3/uL [facility] RBC (Bld) [#/Vol] 2.81 10*6/uL Low 4.40 - 5.9 0 10*6/uL [facility] WBC (Bld) [#/Vol] 8.9 10*3/uL 3.6 - 10.7 10*3/uL [facility] Laboratory - Coagulationon 0 03-03-2025 PT Coag (Bld) [Time] 16.2 s High 9.0 - 12.0 s [facility] No Panel Informationon 03-03 Interpretation and review of laboratory results Abnormal [facility] Nursing Noteon 03-03-2025 Nursing Note Normal [facility] Nursing Note In patient's chart, d/t patient being on his call light excessively and finally telling me he wants something for pain. Please see eMAR for administration Normal [facility] PROTHROMBIN TIMEon INR Coag (PPP) [Relative time] 1.6 {INR} High 0.9-1.1 [facility] Comment on above: Result Comment: Vaughn [...] Myocardial Infarction Performed By: #### L AB325, [id number] ####Filing Clerk: DOMENICA JARA ([phone])[facility] ([facility])[address] [place] [address] PT Coag (PPP) [Time] 16.2 s High 9.0-12.0 [facility] Comment on above: Performed By: #### L AB325, [id number] ####Filing Clerk: DOMENICA JARA ([phone])[facility] [place] [address] PT Coag (Bld) [Time]on 03-03 INR Coag (PPP) [Relative time] 1.6 {INR} High 0.9 - 1.1 [facility] Progress Noteon 03-03-2025 Progress Note Normal [facility] Progress Note Normal [facility] Progress Note Normal [facility] aPTT Coag (Bld) [Time]on aPTT Coag (PPP) [Time] 66.2 s High 20.0 - 30.5 s [facility] Interpretation and review of laboratory results Abnormal [facility] aPTT Coag (PPP) [Time] 52.4 s High 20.0 - 30.5 s [facility] 30on 03-02-2025 30 Switch to augmentin 500mg q24 (to be taken after HD on HD days) until 03/10/25. Team aware of discharge plan Waiting for INR to be in therapeutic range ID will sign off Please re consult if needed Hussain Quintana MD 03/02/2025 12:43 PM Normal [facility] 30 Normal [facility] [id number] 03-02-2025 [id number] Normal [facility] APTTon 03-02-2025 aPTT Coag (Bld) [Time] 68.9 s High 20.0-30.5 [facility] Comment on above: Result Comment: ORDE R COMMENTS:NOTE: The therapeutic time for Heparin anticoagulation, based on Xa activity inhibition, is an APTT of 46-80 seconds. Performed By: #### L AB325 ####Filing Clerk: DOMENICA JARA ([phone])[facility])[address] [place] [address] aPTT Coag (Bld) [Time] 44.7 s High 20.0-30.5 [facility] Comment on above: Result Comment: ORDE R COMMENTS:NOTE: The therapeutic time for Heparin anticoagulation, based on Xa activity inhibition, is an APTT of 46-80 seconds. Performed By: #### L AB325 ####Filing Clerk: DOMENICA JARA ([phone])[facility])[address] [place] [address] aPTT Coag (Bld) [Time] 56.5 s High 20.0-30.5 [facility] Comment on above: Result Comment: ORDE R COMMENTS:NOTE: The therapeutic time for Heparin anticoagulation, based on Xa activity inhibition, is an APTT of 46-80 seconds. Performed By: #### L AB325 ####Filing Clerk: DOMENICA JARA ([phone])[facility] ([facility])[address] [place] [address] aPTT Coag (Bld) [Time] 44.7 s High 20.0-30.5 [facility] Comment on above: Result Comment: ORDE R COMMENTS:NOTE: The therapeutic time for Heparin anticoagulation, based on Xa activity inhibition, is an APTT of 46-80 seconds. Performed By: #### L AB320, [id number] ####Filing Clerk: DOMENICA JARA ([phone])[facility] ([facility])[address] [place] [address] [place] BASIC METABOLIC PANELon 06-0 Anion gap [Moles/Vol] 11 mmol/L Normal 3-13 [facility] Comment on above: Performed By: #### L AB15 ####Filing Clerk: DOMENICA JARA ([phone])[facility] ([facility])[address] [place] [address] Calcium [Mass/Vol] 9.2 mg/dL Normal 8.4-10.2 [facility] Comment on above: Performed By: #### L AB15 ####Filing Clerk: DOMENICA JARA ([phone])[facility] [place] [address] Chloride [Moles/Vol] 102 mmol/L Normal 98-107 [facility] Comment on above: Performed By: #### L AB15 ####Filing Clerk: DOMENICA JARA ([phone])[facility])[address] [place] [address] CO2 [Moles/Vol] 26 mmol/L Normal 22-29 [facility] Comment on above: Performed By: #### L AB15 ####Filing Clerk: DOMENICA JARA ([phone])[facility])[address] [place] [address] Creatinine [Mass/Vol] 2.53 mg/dL High 0.72-1.25 [facility] Comment on above: Performed By: #### L AB15 ####Filing Clerk: DOMENICA JARA ([phone])[facility] ([facility])[address] [place] [address] GLOMERULAR FILTRATION RATE ML/MIN/1.73 SQ M.PREDICTED 28.5 mL/min/1.73m*2 Low >60.0 [facility] Comment on above: Result Comment: Calc ulation based on the Chronic Kidney Disease Epidemiology Collaboration (CKD-EPI) equation refit without adjustment for race Performed By: #### L AB15 ####Filing Clerk: DOMENICA JARA ([phone])[facility])[address] [place] [address] [place] Glucose [Mass/Vol] 107 mg/dL High 74-100 [facility] Comment on above: Performed By: #### L AB15 ####Filing Clerk: DOMENICA JARA ([phone])[facility] ([facility])[address] [place] [address] Potassium [Moles/Vol] 4.6 mmol/L Normal 3.5-5.1 [facility] Comment on above: Result Comment: [facility] potassium values may be up to 0.5 mmol/L lower than serum values. Performed By: #### L AB15 ####Filing Clerk: DOMENICA JARA ([phone])[facility] ([facility])[address] [place] [address] Sodium [Moles/Vol] 139 mmol/L Normal 136-145 [facility] Comment on above: Performed By: #### L AB15 ####Filing Clerk: DOMENICA JARA ([phone])[facility] [place] [address] Urea nitrogen [Mass/Vol] 16 mg/dL Normal 9-23 [facility] Comment on above: Performed By: #### L AB15 ####Filing Clerk: DOMENICA JARA ([phone])[facility] ([facility])[address] [place] [address] Basic metabolic 1998 panelon 03-02-2025 Anion gap [Moles/Vol] 11 mmol/L 3 - 13 mmol/L [facility] Calcium [Mass/Vol] 9.2 mg/dL 8.4 - 10. 2 mg/dL [facility] Chloride [Moles/Vol] 102 mmol/L 98 - 10 7 mmol/L [facility] CO2 [Moles/Vol] 26 mmol/L 22 - 29 mmol/L [facility] Creatinine [Mass/Vol] 2.53 mg/dL High 0.72 - 1.25 mg/dL [facility] GFR/1.73 sq M.predicted (S/P/Bld) [Vol rate/Area] 28.5 mL/min Low - PINF [facility] Glucose [Mass/Vol] 107 mg/dL High 74 - 100 mg/dL [facility] Interpretation and review of laboratory results Abnormal [facility] Potassium [Moles/Vol] 4.6 mmol/L 3.5 - 5.1 mmol/L [facility] Sodium [Moles/Vol] 139 mmol/L 136 - 145 mmol/L [facility] Urea nitrogen [Mass/Vol] 16 mg/dL 9 - 23 mg/d L [facility] CBC (HEMOGRAM)on 03-02-2025 Erythrocyte distribution width (RBC) [Ratio] 20.1 % High 11.5-15.0 [facility] Comment on above: Performed By: #### L [id number] ####Filing Clerk: DOMENICA JARA ([phone])[facility])[address] [place] [address] Hematocrit (Bld) [Volume fraction] 25.4 % Low 40.0-52.0 [facility] Comment on above: Performed By: #### L AB294 ####Filing Clerk: DOMENICA JARA ([phone])[facility])[address] [place] [address] Hemoglobin (Bld) [Mass/Vol] 7.7 g/dL Low 13.0-18.0 [facility] Comment on above: Performed By: #### L AB294 ####Filing Clerk: DOMENICA JARA ([phone])[facility])[address] [place] [address] [place] IPF 2 Normal [facility] Comment on above: Performed By: #### L AB294 ####Filing Clerk: DOMENICA JARA ([phone])[facility])[address] [place] [address] MCH (RBC) [Entitic mass] 29.7 pg Normal 26.0-34.0 [facility] Comment on above: Performed By: #### L AB294 ####Filing Clerk: DOMENICA JARA ([phone])[facility])[address] [place] [address] MCHC 30.3 % Low 30.5-36.0 [facility] Comment on above: Performed By: #### L AB294 ####Filing Clerk: DOMENICA JARA ([phone])[facility] ([facility])[address] [place] [address] MCV (RBC) [Entitic vol] 98.1 fL Normal 77.0-99.0 [facility] Comment on above: Performed By: #### L AB294 ####Filing Clerk: DOMENICA JARA ([phone])[facility])[address] [place] [address] Platelet mean volume (Bld) [Entitic vol] 9.0 fL Normal 9.0-12.7 [facility] Comment on above: Performed By: #### L AB294 ####Filing Clerk: DOMENICA JARA ([phone])[facility] ([facility])[address] [place] [address] Platelets (Bld) [#/Vol] 354 10*3/uL Normal 140-440 [facility] Comment on above: Performed By: #### L AB294 ####Filing Clerk: DOMENICA JARA ([phone])[facility] ([facility])[address] [place] [address] RBC (Bld) [#/Vol] 2.59 10*6/uL Low 4.40-5.90 [facility] Comment on above: Performed By: #### L AB294 ####Filing Clerk: DOMENICA JARA ([phone])[facility] ([facility])[address] [place] [address] WBC (Bld) [#/Vol] 7.4 10*3/uL Normal 3.6-10.7 [facility] Comment on above: Performed By: #### L [id number] ####Filing Clerk: DOMENICA JARA ([phone])[facility])[address] [place] [address] CBC panel Auto (Bld)Ordered By: Callie Steele on 03-02-2025 Erythrocyte distribution width (RBC) [Ratio] 20.1 % High 11.5 - 15.0 % [facility] Hematocrit (Bld) [Volume fraction] 25.4 % Low 40.0 - 52.0 % [facility] Hemoglobin (Bld) [Mass/Vol] 7.7 g/dL Low 13.0 - 18.0 g/dL [facility] Interpretation and review of laboratory results Abnormal [facility] IPF 2 [facility] MCH (RBC) [Entitic mass] 29.7 pg 26. 0 - 34.0 pg [facility] MCHC (RBC) [Mass/Vol] 30.3 % Low 30.5 - 36.0 % [facility] MCV (RBC) [Entitic vol] 98.1 fL 77.0 - 99.0 fL [facility] Platelet mean volume (Bld) [Entitic vol] 9 fL 9.0 - 12.7 fL [facility] Platelets (Bld) [#/Vol] 354 10*3/uL 140 - 440 10*3/uL [facility] RBC (Bld) [#/Vol] 2.59 10*6/uL Low 4.40 - 5.9 0 10*6/uL [facility] WBC (Bld) [#/Vol] 7.4 10*3/uL 3.6 - 10.7 10*3/uL [facility] Laboratory - Coagulationon 0 03-02-2025 PT Coag (Bld) [Time] 14.7 s High 9.0 - 12.0 s [facility] No Panel Informationon 03-02 Interpretation and review of laboratory results Abnormal [facility] PROTHROMBIN TIMEon INR Coag (PPP) [Relative time] 1.4 {INR} High 0.9-1.1 [facility] Comment on above: Result [...] Myocardial Infarction Performed By: #### L [id number], [id number] ####Filing Clerk: DOMENICA JARA ([phone])[facility] ([facility])[address] [place] [address] [place] PT Coag (PPP) [Time] 14.7 s High 9.0-12.0 [facility] Comment on above: Performed By: #### L AB320, [id number] ####Filing Clerk: DOMENICA JARA ([phone])[facility] ([facility])[address] [place] [address] PT Coag (Bld) [Time]on 03-02 INR Coag (PPP) [Relative time] 1.4 {INR} High 0.9 - 1.1 [facility] Progress Noteon 03-02-2025 Progress Note Normal [facility] Progress Note Normal [facility] Progress Note Normal [facility] Progress Note Normal [facility] aPTT Coag (Bld) [Time]on aPTT Coag (PPP) [Time] 68.9 s High 20.0 - 30.5 s [facility] Interpretation and review of laboratory results Abnormal [facility] aPTT Coag (PPP) [Time] 44.7 s High 20.0 - 30.5 s [facility] Interpretation and review of laboratory results Abnormal [facility] aPTT Coag (PPP) [Time] 56.5 s High 20.0 - 30.5 s [facility] Interpretation and review of laboratory results Abnormal [facility] aPTT Coag (PPP) [Time] 44.7 s High 20.0 - 30.5 s [facility] 30on 03-01-2025 30 Normal [facility] [id number] 03-01-2025 [id number] Discharge med list and updated notes transmitted to [facility] via [facility] per TCC request. Normal [facility] [id number] Normal [facility] APTTon 03-01-2025 aPTT Coag (Bld) [Time] 51.3 s High 20.0-30.5 [facility] Comment on above: Result Comment: ARPAN Kaplan COMMENTS:NOTE: The therapeutic time for Heparin anticoagulation, based on Xa activity inhibition, is an APTT of 46-80 seconds. Performed By: #### L AB320, [id number] ####Filing Clerk: DOMENICA JARA ([phone])[facility] ([facility])[address] [place] [address] BASIC METABOLIC PANELon 06-0 Anion gap [Moles/Vol] 13 mmol/L Normal 3-13 [facility] Comment on above: Performed By: #### L AB15 ####Filing Clerk: DOMENICA JARA ([phone])[facility] ([facility])[address] [place] [address] Calcium [Mass/Vol] 9.6 mg/dL Normal 8.4-10.2 [facility] Comment on above: Performed By: #### L AB15 ####Filing Clerk: DOMENICA JARA ([phone])[facility] ([facility])[address] [place] [address] Chloride [Moles/Vol] 102 mmol/L Normal 98-107 [facility] Comment on above: Performed By: #### L AB15 ####Filing Clerk: DOMENICA JARA ([phone])[facility] ([facility])[address] [place] [address] CO2 [Moles/Vol] 23 mmol/L Normal 22-29 [facility] Comment on above: Performed By: #### L AB15 ####Filing Clerk: DOMENICA JARA ([phone])[facility] ([facility])[address] [place] [address] Creatinine [Mass/Vol] 3.73 mg/dL High 0.72-1.25 [facility] Comment on above: Performed By: #### L AB15 ####Filing Clerk: DOMENICA JARA ([phone])[facility] ([facility])[address] [place] [address] GLOMERULAR FILTRATION RATE ML/MIN/1.73 SQ M.PREDICTED 17.9 mL/min/1.73m*2 Low >60.0 [facility] Comment on above: Result Comment: Calc ulation based on the Chronic Kidney Disease Epidemiology Collaboration (CKD-EPI) equation refit without adjustment for race Performed By: #### L AB15 ####Filing Clerk: DOMENICA JARA ([phone])[facility] ([facility])[address] [place] [address] Glucose [Mass/Vol] 87 mg/dL Normal 74-100 [facility] Comment on above: Performed By: #### L AB15 ####Filing Clerk: DOMENICA JARA ([phone])[facility])[address] [place] [address] Potassium [Moles/Vol] 5.8 mmol/L High 3.5-5.1 [facility] Comment on above: Result Comment: [facility] potassium values may be up to 0.5 mmol/L lower than serum values. Performed By: #### L AB15 ####Filing Clerk: DOMENICA JARA ([phone])[facility] ([facility])[address] [place] [address] Sodium [Moles/Vol] 138 mmol/L Normal 136-145 [facility] Comment on above: Performed By: #### L AB15 ####Filing Clerk: DOMENICA JARA ([phone])[facility])[address] [place] [address] Urea nitrogen [Mass/Vol] 28 mg/dL High 9-23 [facility] Comment on above: Performed By: #### L AB15 ####Filing Clerk: DOMENICA JARA ([phone])[facility])[address] [place] [address] Basic metabolic 1998 panelon 03-01-2025 Anion gap [Moles/Vol] 13 mmol/L 3 - 13 mmol/L [facility] Calcium [Mass/Vol] 9.6 mg/dL 8.4 - 10. 2 mg/dL [facility] Chloride [Moles/Vol] 102 mmol/L 98 - 10 7 mmol/L [facility] CO2 [Moles/Vol] 23 mmol/L 22 - 29 mmol/L [facility] Creatinine [Mass/Vol] 3.73 mg/dL High 0.72 - 1.25 mg/dL [facility] GFR/1.73 sq M.predicted (S/P/Bld) [Vol rate/Area] 17.9 mL/min Low - PINF [facility] Glucose [Mass/Vol] 87 mg/dL 74 - 100 mg/dL [facility] Interpretation and review of laboratory results Abnormal [facility] Potassium [Moles/Vol] 5.8 mmol/L High 3.5 - 5.1 mmol/L [facility] Sodium [Moles/Vol] 138 mmol/L 136 - 145 mmol/L [facility] Urea nitrogen [Mass/Vol] 28 mg/dL High 9 - 23 mg/d L [facility] CBC (HEMOGRAM)on 03-01-2025 Erythrocyte distribution width (RBC) [Ratio] 19.7 % High 11.5-15.0 [facility] Comment on above: Performed By: #### L AB294 ####Filing Clerk: DOMENICA JARA ([phone])[facility])[address] [place] [address] Hematocrit (Bld) [Volume fraction] 26.9 % Low 40.0-52.0 [facility] Comment on above: Performed By: #### L AB294 ####Filing Clerk: DOMENICA JARA ([phone])[facility])[address] [place] [address] Hemoglobin (Bld) [Mass/Vol] 8.0 g/dL Low 13.0-18.0 [facility] Comment on above: Performed By: #### L AB294 ####Filing Clerk: DOMENICA JARA ([phone])[facility])[address] [place] [address] MCH (RBC) [Entitic mass] 28.8 pg Normal 26.0-34.0 [facility] Comment on above: Performed By: #### L AB294 ####Filing Clerk: DOMENICA JARA ([phone])[facility])[address] [place] [address] MCHC 29.7 % Low 30.5-36.0 [facility] Comment on above: Performed By: #### L AB294 ####Filing Clerk: DOMENICA JARA ([phone])[facility])[address] [place] [address] MCV (RBC) [Entitic vol] 96.8 fL Normal 77.0-99.0 [facility] Comment on above: Performed By: #### L AB294 ####Filing Clerk: DOMENICA JARA ([phone])[facility] ([facility])[address] [place] [address] Platelet mean volume (Bld) [Entitic vol] 8.7 fL Low 9.0-12.7 [facility] Comment on above: Performed By: #### L AB294 ####Filing Clerk: DOMENICA JARA ([phone])[facility])[address] [place] [address] Platelets (Bld) [#/Vol] 306 10*3/uL Normal 140-440 [facility] Comment on above: Performed By: #### L AB294 ####Filing Clerk: DOMENICA JARA ([phone])[facility] ([facility])[address] [place] [address] RBC (Bld) [#/Vol] 2.78 10*6/uL Low 4.40-5.90 [facility] Comment on above: Performed By: #### L AB294 ####Filing Clerk: DOMENICA JARA ([phone])[facility])[address] [place] [address] WBC (Bld) [#/Vol] 7.5 10*3/uL Normal 3.6-10.7 [facility] Comment on above: Performed By: #### L AB294 ####Filing Clerk: DOMENICA JARA ([phone])[facility])[address] [place] [address] CBC panel Auto (Bld)on 03-01 Erythrocyte distribution width (RBC) [Ratio] 19.7 % High 11.5 - 15.0 % [facility] Hematocrit (Bld) [Volume fraction] 26.9 % Low 40.0 - 52.0 % [facility] Hemoglobin (Bld) [Mass/Vol] 8 g/dL Low 13.0 - 18.0 g/dL [facility] Interpretation and review of laboratory results Abnormal [facility] MCH (RBC) [Entitic mass] 28.8 pg 26. 0 - 34.0 pg [facility] MCHC (RBC) [Mass/Vol] 29.7 % Low 30.5 - 36.0 % [facility] MCV (RBC) [Entitic vol] 96.8 fL 77.0 - 99.0 fL [facility] Platelet mean volume (Bld) [Entitic vol] 8.7 fL Low 9.0 - 12.7 fL [facility] Platelets (Bld) [#/Vol] 306 10*3/uL 140 - 440 10*3/uL [facility] RBC (Bld) [#/Vol] 2.78 10*6/uL Low 4.40 - 5.9 0 10*6/uL [facility] WBC (Bld) [#/Vol] 7.5 10*3/uL 3.6 - 10.7 10*3/uL [facility] Laboratory - Coagulationon 0 03-01-2025 PT Coag (Bld) [Time] 14.3 s High 9.0 - 12.0 s [facility] No Panel Informationon 03-01 Interpretation and review of laboratory results Abnormal [facility] Nursing Noteon 03-01-2025 Nursing Note Normal [facility] PROTHROMBIN TIMEon INR Coag (PPP) [Relative time] 1.4 {INR} High 0.9-1.1 [facility] Comment on above: Result Comment: Vaughn [...] Myocardial Infarction Performed By: #### L AB320, [id number] ####Filing Clerk: DOMENICA JARA ([phone])[facility] [place] [address] PT Coag (PPP) [Time] 14.3 s High 9.0-12.0 [facility] Comment on above: Performed By: #### L AB320, [id number] ####Filing Clerk: DOMENICA JARA ([phone])[facility] ([facility])[address] [place] [address] PT Coag (Bld) [Time]on 03-01 INR Coag (PPP) [Relative time] 1.4 {INR} High 0.9 - 1.1 [facility] Progress Noteon 03-01-2025 Progress Note Normal [facility] Progress Note Normal [facility] Progress Note Normal [facility] Progress Note Normal [facility] Progress Note PHYSICAL THERAPY [facility] Name/MRN: Jair Snyder ([id number]) Date: 03/01/2025 Leaving for dialysis. Return later time/date for PT. Merlene León, JOY Normal [facility] Progress Note Normal [facility] aPTT Coag (Bld) [Time]on aPTT Coag (PPP) [Time] 51.3 s High 20.0 - 30.5 s [facility] 30on 02-28-2025 30 Normal [facility] 30 Normal [facility] [id number] 02-28-2025 [id number] Auth is back however can not discharge still on hep gtt- auth good thru 03/02- hoping by Wednesday AM . Updated snf . [facility] [phone] Transport requested in [employer] in will call per TCC. [facility] [phone] Tasked [employer] to set up transport in will call, not ready for DC, Auth pending [facility] APTTon 02-28-2025 aPTT Coag (Bld) [Time] 47.7 s High 20.0-30.5 [facility] Comment on above: Result Comment: ARPAN Kaplan COMMENTS:NOTE: The therapeutic time for Heparin anticoagulation, based on Xa activity inhibition, is an APTT of 46-80 seconds. Performed By: #### L AB325, [id number] ####Filing Clerk: DOMENICA JARA ([phone])[facility] ([facility])[address] [place] [address] BASIC METABOLIC PANELon 06- Anion gap [Moles/Vol] 11 mmol/L Normal 3-13 [facility] Comment on above: Performed By: #### L AB15 ####Filing Clerk: DOMENICA JARA ([phone])[facility] ([facility])[address] [place] [address] Calcium [Mass/Vol] 9.3 mg/dL Normal 8.4-10.2 [facility] Comment on above: Performed By: #### L AB15 ####Filing Clerk: DOMENICA JARA ([phone])[facility] ([facility])[address] [place] [address] Chloride [Moles/Vol] 100 mmol/L Normal 98-107 [facility] Comment on above: Performed By: #### L AB15 ####Filing Clerk: DOMENICA JARA ([phone])[facility] ([facility])[address] [place] [address] [place] CO2 [Moles/Vol] 27 mmol/L Normal 22-29 [facility] Comment on above: Performed By: #### L AB15 ####Filing Clerk: DOMENICA JARA ([phone])[facility] ([facility])[address] [place] [address] Creatinine [Mass/Vol] 3.06 mg/dL High 0.72-1.25 [facility] Comment on above: Performed By: #### L AB15 ####Filing Clerk: DOMENICA [phone])[facility] [place] [address] GLOMERULAR FILTRATION RATE ML/MIN/1.73 SQ M.PREDICTED 22.7 mL/min/1.73m*2 Low >60.0 [facility] Comment on above: Result Comment: Calc ulation based on the Chronic Kidney Disease Epidemiology Collaboration (CKD-EPI) equation refit without adjustment for race Performed By: #### L AB15 ####Filing Clerk: DOMENICA JARA ([phone])[facility])[address] [place] [address] Glucose [Mass/Vol] 94 mg/dL Normal 74-100 [facility] Comment on above: Performed By: #### L AB15 ####Filing Clerk: DOMENICA JARA ([phone])[address] Potassium [Moles/Vol] 5.0 mmol/L Normal 3.5-5.1 [facility] Comment on above: Result Comment: [facility] potassium values may be up to 0.5 mmol/L lower than serum values. Performed By: #### L AB15 ####Filing Clerk: DOMENICA JARA ([phone])[facility])[address] [place] [address] Sodium [Moles/Vol] 138 mmol/L Normal 136-145 [facility] Comment on above: Performed By: #### L AB15 ####Filing Clerk: DOMENICA JARA ([phone])[address] Urea nitrogen [Mass/Vol] 19 mg/dL Normal 9-23 [facility] Comment on above: Performed By: #### L AB15 ####Filing Clerk: DOMENICA [phone])[address] Basic metabolic 1998 panelon 02-28-2025 Anion gap [Moles/Vol] 11 mmol/L 3 - 13 mmol/L [facility] Calcium [Mass/Vol] 9.3 mg/dL 8.4 - 10. 2 mg/dL [facility] Chloride [Moles/Vol] 100 mmol/L 98 - 10 7 mmol/L [facility] CO2 [Moles/Vol] 27 mmol/L 22 - 29 mmol/L [facility] Creatinine [Mass/Vol] 3.06 mg/dL High 0.72 - 1.25 mg/dL [facility] GFR/1.73 sq M.predicted (S/P/Bld) [Vol rate/Area] 22.7 mL/min Low - PINF [facility] Glucose [Mass/Vol] 94 mg/dL 74 - 100 mg/dL [facility] Interpretation and review of laboratory results Abnormal [facility] Potassium [Moles/Vol] 5 mmol/L 3.5 - 5.1 mmol/L [facility] Sodium [Moles/Vol] 138 mmol/L 136 - 145 mmol/L [facility] Urea nitrogen [Mass/Vol] 19 mg/dL 9 - 23 mg/d L [facility] CBC (HEMOGRAM)on 02-28-2025 Erythrocyte distribution width (RBC) [Ratio] 19.8 % High 11.5-15.0 [facility] Comment on above: Performed By: #### L AB294 ####Filing Clerk: DOMENICA JARA ([phone])[address] Hematocrit (Bld) [Volume fraction] 26.9 % Low 40.0-52.0 [facility] Comment on above: Performed By: #### L AB294 ####Filing Clerk: DOMENICA [phone])[address] Hemoglobin (Bld) [Mass/Vol] 8.2 g/dL Low 13.0-18.0 [facility] Comment on above: Performed By: #### L AB294 ####Filing Clerk: DOMENICA JARA ([phone])[facility])[address] [place] [address] MCH (RBC) [Entitic mass] 29.3 pg Normal 26.0-34.0 [facility] Comment on above: Performed By: #### L AB294 ####Filing Clerk: DOMENICA JARA ([phone])[facility] ([facility])[address] [place] [address] MCHC 30.5 % Normal 30.5-36.0 [facility] Comment on above: Performed By: #### L AB294 ####Filing Clerk: DOMENICA JARA ([phone])[facility] ([facility])[address] [place] [address] MCV (RBC) [Entitic vol] 96.1 fL Normal 77.0-99.0 [facility] Comment on above: Performed By: #### L AB294 ####Filing Clerk: DOMENICA JARA ([phone])[facility])[address] [place] [address] Platelet mean volume (Bld) [Entitic vol] 9.0 fL Normal 9.0-12.7 [facility] Comment on above: Performed By: #### L AB294 ####Filing Clerk: DOMENICA JARA ([phone])[facility] ([facility])[address] [place] [address] Platelets (Bld) [#/Vol] 324 10*3/uL Normal 140-440 [facility] Comment on above: Performed By: #### L AB294 ####Filing Clerk: DOMENICA JARA ([phone])[facility])[address] [place] [address] RBC (Bld) [#/Vol] 2.80 10*6/uL Low 4.40-5.90 [facility] Comment on above: Performed By: #### L AB294 ####Filing Clerk: DOMENICA JARA ([phone])[facility] ([facility])[address] [place] [address] [place] WBC (Bld) [#/Vol] 8.0 10*3/uL Normal 3.6-10.7 [facility] Comment on above: Performed By: #### L AB294 ####Filing Clerk: DOMENICA JARA ([phone])[facility] ([facility])[address] [place] [address] CBC panel Auto (Bld)Ordered By: Giancarlo Lakhani on 02-28-2025 Erythrocyte distribution width (RBC) [Ratio] 19.8 % High 11.5 - 15.0 % [facility] Hematocrit (Bld) [Volume fraction] 26.9 % Low 40.0 - 52.0 % [facility] Hemoglobin (Bld) [Mass/Vol] 8.2 g/dL Low 13.0 - 18.0 g/dL [facility] Interpretation and review of laboratory results Abnormal [facility] MCH (RBC) [Entitic mass] 29.3 pg 26. 0 - 34.0 pg [facility] MCHC (RBC) [Mass/Vol] 30.5 % 30.5 - 36.0 % [facility] MCV (RBC) [Entitic vol] 96.1 fL 77.0 - 99.0 fL [facility] Platelet mean volume (Bld) [Entitic vol] 9 fL 9.0 - 12.7 fL [facility] Platelets (Bld) [#/Vol] 324 10*3/uL 140 - 440 10*3/uL [facility] RBC (Bld) [#/Vol] 2.8 10*6/uL Low 4.40 - 5.9 0 10*6/uL [facility] WBC (Bld) [#/Vol] 8 10*3/uL 3.6 - 10.7 10*3/uL [facility] Laboratory - Coagulationon 0 02-28-2025 PT Coag (Bld) [Time] 14 s High 9.0 - 12.0 s [facility] No Panel Informationon 02-28 Interpretation and review of laboratory results Abnormal [facility] Nursing Noteon 02-28-2025 Nursing Note Normal [facility] PROTHROMBIN TIMEon INR Coag (PPP) [Relative time] 1.3 {INR} High 0.9-1.1 [facility] Comment on above: Result Comment: Vaughn [...] Myocardial Infarction Performed By: #### L AB325, [id number] ####Filing Clerk: DOMENICA JARA ([phone])[facility] ([facility])[address] [place] [address] PT Coag (PPP) [Time] 14.0 s High 9.0-12.0 [facility] Comment on above: Performed By: #### L AB325, [id number] ####Filing Clerk: DOMENICA JARA ([phone])[facility] ([facility])[address] [place] [address] PT Coag (Bld) [Time]on 02-28 INR Coag (PPP) [Relative time] 1.3 {INR} High 0.9 - 1.1 [facility] Progress Noteon 02-28-2025 Progress Note Normal [facility] Progress Note Normal [facility] Progress Note Normal [facility] Progress Note Normal [facility] aPTT Coag (Bld) [Time]on aPTT Coag (PPP) [Time] 47.7 s High 20.0 - 30.5 s [facility] 30on 02-27-2025 30 Normal [facility] 30 Normal [facility] [id number] 02-27-2025 [id number] Normal [facility] APTTon 02-27-2025 aPTT Coag (Bld) [Time] 55.6 s High 20.0-30.5 [facility] Comment on above: Result Comment: ARPAN Kaplan COMMENTS:NOTE: The therapeutic time for Heparin anticoagulation, based on Xa activity inhibition, is an APTT of 46-80 seconds. Performed By: #### L AB325, [id number] ####Filing Clerk: DOMENICA JARA ([phone])[facility] ([facility])[address] [place] [address] Bacteria identified Cx Nom ( Bld)on 02-27-2025 Interpretation and review of laboratory results Normal [facility] Interpretation and review of laboratory results Normal [facility] CBC (HEMOGRAM)on 02-27-2025 Erythrocyte distribution width (RBC) [Ratio] 19.5 % High 11.5-15.0 [facility] Comment on above: Performed By: #### L AB294 ####Filing Clerk: DOMENICA JARA ([phone])[address] Hematocrit (Bld) [Volume fraction] 28.8 % Low 40.0-52.0 [facility] Comment on above: Performed By: #### L AB294 ####Filing Clerk: DOMENICA JARA ([phone])[address] Hemoglobin (Bld) [Mass/Vol] 8.6 g/dL Low 13.0-18.0 [facility] Comment on above: Performed By: #### L AB294 ####Filing Clerk: DOMENICA JARA ([phone])[address] MCH (RBC) [Entitic mass] 28.7 pg Normal 26.0-34.0 [facility] Comment on above: Performed By: #### L AB294 ####Filing Clerk: DOMENICA JARA ([phone])[address] MCHC 29.9 % Low 30.5-36.0 [facility] Comment on above: Performed By: #### L AB294 ####Filing Clerk: DOMENICA JARA ([phone])[address] MCV (RBC) [Entitic vol] 96.0 fL Normal 77.0-99.0 [facility] Comment on above: Performed By: #### L AB294 ####Filing Clerk: DOMENICA JARA ([phone])[facility] ([facility])[address] [place] [address] Platelet mean volume (Bld) [Entitic vol] 8.9 fL Low 9.0-12.7 [facility] Comment on above: Performed By: #### L [id number] ####Filing Clerk: DOMENICA JARA ([phone])[facility])[address] [place] [address] Platelets (Bld) [#/Vol] 302 10*3/uL Normal 140-440 [facility] Comment on above: Performed By: #### L AB294 ####Filing Clerk: DOMENICA JARA ([phone])[facility])[address] [place] [address] RBC (Bld) [#/Vol] 3.00 10*6/uL Low 4.40-5.90 [facility] Comment on above: Performed By: #### L AB294 ####Filing Clerk: DOMENICA JARA ([phone])[facility] ([facility])[address] [place] [address] WBC (Bld) [#/Vol] 7.9 10*3/uL Normal 3.6-10.7 [facility] Comment on above: Performed By: #### L [id number] ####Filing Clerk: DOMENICA JARA ([phone])[facility])[address] [place] [address] CBC panel Auto (Bld)Ordered By: Brandy Ross on 02-27-2025 Erythrocyte distribution width (RBC) [Ratio] 19.5 % High 11.5 - 15.0 % [facility] Hematocrit (Bld) [Volume fraction] 28.8 % Low 40.0 - 52.0 % [facility] Hemoglobin (Bld) [Mass/Vol] 8.6 g/dL Low 13.0 - 18.0 g/dL [facility] Interpretation and review of laboratory results Abnormal [facility] MCH (RBC) [Entitic mass] 28.7 pg 26. 0 - 34.0 pg [facility] MCHC (RBC) [Mass/Vol] 29.9 % Low 30.5 - 36.0 % [facility] MCV (RBC) [Entitic vol] 96 fL 77.0 - 99.0 fL [facility] Platelet mean volume (Bld) [Entitic vol] 8.9 fL Low 9.0 - 12.7 fL [facility] Platelets (Bld) [#/Vol] 302 10*3/uL 140 - 440 10*3/uL [facility] RBC (Bld) [#/Vol] 3 10*6/uL Low 4.40 - 5.9 0 10*6/uL [facility] WBC (Bld) [#/Vol] 7.9 10*3/uL 3.6 - 10.7 10*3/uL [facility] ECG 12-LEADon 02-27-2025 ECG 12-LEAD IMPRESSION: Sinus rhythm Left atrial enlargement RBBB and LPFB Abnrm T, consider ischemia, anterolateral lds Compared to ECG 01/19/2025 06:31:48 Prolonged QT interval no longer present Electronically Signed On 02-27-2025 16:08:17 EDT by Ochoa Guido Normal [facility] Laboratory - Coagulationon 0 02-27-2025 PT Coag (Bld) [Time] 13.7 s High 9.0 - 12.0 s [facility] - Microbiology an d Antimicrobial susceptibilityon 02-27-2025 Bacteria identified Cx Nom (Bld) No growth at 5 days [facility] Bacteria identified Cx Nom (Bld) No growth at 5 days [facility] No Panel InformationOrdered By: Ochoa Guido on 02-27-2025 P [place] 76 degrees [facility] Work Phone: MO Interval 150 ms [facility] Work Phone: QRS [place] 92 degrees [facility] Work Phone: QRSD Interval 124 ms [facility] Work Phone: QT Interval 417 ms [facility] Work Phone: QTC Interval 482 ms [facility] Work Phone: T Wave [place] 95 degrees [facility] Work Phone: [facility] Work Phone: No Panel Informationon 02-27 CV EPIPHANY [facility] Interpretation and review of laboratory results Abnormal [facility] Nursing Noteon 02-27-2025 Nursing Note Normal [facility] Nursing Note Normal [facility] PROTHROMBIN TIMEon INR Coag (PPP) [Relative time] 1.3 {INR} High 0.9-1.1 [facility] Comment on above: Result Comment: Vaughn [...] Myocardial Infarction Performed By: #### Tameka [id number], [id number] ####Filing Clerk: DOMENICA JARA ([phone])[facility] ([facility])[address] [place] [address] PT Coag (PPP) [Time] 13.7 s High 9.0-12.0 [facility] Comment on above: Performed By: #### Tameka [id number], [id number] ####Filing Clerk: DOMENICA JARA ([phone])[facility] ([facility])[address] [place] [address] PT Coag (Bld) [Time]on 02-27 INR Coag (PPP) [Relative time] 1.3 {INR} High 0.9 - 1.1 [facility] Progress Noteon 02-27-2025 Progress Note Normal [facility] Progress Note Normal [facility] Progress [facility] Normal [facility] Progress [facility] Normal [facility] Progress Note Normal [facility] Progress Note Normal [facility] Vital signsOrdered By: Ochoa Guido on 02-27-2025 Heart rate 80 /min bpm [facility] Work Phone: aPTT Coag (Bld) [Time]on aPTT Coag (PPP) [Time] 55.6 s High 20.0 - 30.5 s [facility] 30on 02-26-2025 30 Normal [facility] [id number] 02-26-2025 [id number] Normal [facility] [id number] 02-26-2025 [id number] Getting updated therapy notes. Want to skill him at [facility]. Started on IV antibiotics for aspiration pneumonia. Continues on a heparin gtt. . [facility] [phone] Updated notes sent to [facility] via [employer] per [facility] request. Await review and response regarding ability to accept. TCC notified. [facility] 36on 02-26-2025 36 [facility] CBC W/Diff, Automatedon Absolute Neut Normal 2.0-7.7 [facility] Comment on above: Order Comment: 413.2 Result Comment: KIMBER ENT DISCHARGED Performed By: #### L 300.3900 #### [facility] [address] [place], [address] HCT Normal 40-54 [facility] Comment on above: Order Comment: 413.2 Result Comment: KIMBER ENT DISCHARGED Performed By: #### L 300.3900 #### [facility] [address] [place], [address] HGB Normal 13.0-16.5 [facility] Comment on above: Order Comment: 413.2 Result Comment: KIMBER ENT DISCHARGED Performed By: #### L 300.3900 #### [facility] [address] [place], [address] MCH Normal 27.0-32.0 [facility] Comment on above: Order Comment: 413.2 Result Comment: KIMBER ENT DISCHARGED Performed By: #### L 300.3900 #### [facility] [address] [place], [address] MCHC Normal 32-36 [facility] Comment on above: Order Comment: 413.2 Result Comment: KIMBER ENT DISCHARGED Performed By: #### L 300.3900 #### [facility] [address] [place], [address] MCV Normal 80-94 [facility] Comment on above: Order Comment: 413.2 Result Comment: KIMBER ENT DISCHARGED Performed By: #### L 300.3900 #### [facility] [address] [place], [address] NEUT% Normal 47-70 [facility] Comment on above: Order Comment: 413.2 Result Comment: KIMBER ENT DISCHARGED Performed By: #### L 300.3900 #### [facility] [address] [place], [address] PLT Normal 150-450 [facility] Comment on above: Order Comment: 413.2 Result Comment: KIMBER ENT DISCHARGED Performed By: #### L 300.3900 #### [facility] [address] [place], [address] RBC Normal 4.6-6.2 [facility] Comment on above: Order Comment: 413.2 Result Comment: KIMBER ENT DISCHARGED Performed By: #### L 300.3900 #### [facility] [address] [place], [address] RDW CV Normal 11.6-14.6 [facility] Comment on above: Order Comment: 413.2 Result Comment: KIMBER ENT DISCHARGED Performed By: #### L 300.3900 #### [facility] [address] [place], [address] RDW SD Normal 35.1-43.9 [facility] Comment on above: Order Comment: 413.2 Result Comment: KIMBER ENT DISCHARGED Performed By: #### L 300.3900 #### [facility] [address] [place], [address] WBC Normal 4.4-11.0 [facility] Comment on above: Order Comment: 413.2 Result Comment: KIMBER ENT DISCHARGED Performed By: #### L 300.3900 #### [facility] [address] [place], [address] Comprehensive Metabolic Prof ilon 02-26-2025 ALB Normal 3.5-5.0 [facility] Comment on above: Order Comment: 413.2 Result Comment: KIMBER ENT DISCHARGED Performed By: #### L 300.3900 #### [facility] [address] [place], [address] ALK PHOS Normal 40-129 [facility] Comment on above: Order Comment: 413.2 Result Comment: KIMBER ENT DISCHARGED Performed By: #### L 300.3900 #### [facility] [address] [place], [address] ALT Normal <=46 [facility] Comment on above: Order Comment: 413.2 Result Comment: KIMBER ENT DISCHARGED Performed By: #### L 300.3900 #### [facility] [address] [place], [address] AST Normal <=37 [facility] Comment on above: Order Comment: 413.2 Result Comment: KIMBRE ENT DISCHARGED Performed By: #### L 300.3900 #### [facility] [address] [place], [address] BUN Normal 4-19 [facility] Comment on above: Order Comment: 413.2 Result Comment: KIMBER ENT DISCHARGED Performed By: #### L 300.3900 #### [facility] [address] [place], [address] BUN/CRE Normal 10-20 [facility] Comment on above: Order Comment: 413.2 Result Comment: KIMBER ENT DISCHARGED Performed By: #### L 300.3900 #### [facility] [address] [place], [address] Calcium Normal 7.6-11.0 [facility] Comment on above: Order Comment: 413.2 Result Comment: KIMBER ENT DISCHARGED Performed By: #### L 300.3900 #### [facility] [address] [place], [address] CL Normal 98-108 [facility] Comment on above: Order Comment: 413.2 Result Comment: KIMBER ENT DISCHARGED Performed By: #### L 300.3900 #### [facility] [address] [place], [address] CO2 Normal 21.0-32.0 [facility] Comment on above: Order Comment: 413.2 Result Comment: KIMBER ENT DISCHARGED Performed By: #### L 300.3900 #### [facility] [address] [place], [address] CREAT,SERUM Normal 0.70-1.20 [facility] Comment on above: Order Comment: 413.2 Result Comment: KIMBER ENT DISCHARGED Performed By: #### L 300.3900 #### [facility] [address] [place], [address] eGFR Normal >60 [facility] Comment on above: Order Comment: 413.2 Result Comment: KIMBER ENT DISCHARGED Performed By: #### L 300.3900 #### [facility] [address] [place], [address] GAP Normal 5-15 [facility] Comment on above: Order Comment: 413.2 Result Comment: KIMBER ENT DISCHARGED Performed By: #### L 300.3900 #### [facility] [address] [place], [address] GLU Normal 70-99 [facility] Comment on above: Order Comment: 413.2 Result Comment: KIMBER ENT DISCHARGED Performed By: #### L 300.3900 #### [facility] [address] [place], [address] Potassium Normal 3.3-5.1 [facility] Comment on above: Order Comment: 413.2 Result Comment: KIMBER ENT DISCHARGED Performed By: #### L 300.3900 #### [facility] [address] [place], [address] T BILI Normal 0.00-1.30 [facility] Comment on above: Order Comment: 413.2 Result Comment: KIMBER ENT DISCHARGED Performed By: #### L 300.3900 #### [facility] [address] [place], [address] T PROT Normal 5.9-8.4 [facility] Comment on above: Order Comment: 413.2 Result Comment: KIMBER ENT DISCHARGED Performed By: #### L 300.3900 #### [facility] [address] [place], [address] Comprehensive Metabolic Profil Normal 133-145 [facility] Comment on above: Order Comment: 413.2 Result Comment: KIMBER ENT DISCHARGED Performed By: #### L 300.3900 #### [facility] [address] [place], [address] HIGH SENSITIVITY TROPONIN, S ERIAL, SECOND TESTon 02-26-2025 2H TROPONIN HS (SERIAL 2ND TROPONIN) 80 ng/L High <=35 [facility] Comment on above: Result Comment: [...] 3rd serial troponin Performed By: #### L [id number] ####Filing Clerk: DOMENICA JARA ([phone])[address] HIGH SENSITIVITY TROPONIN, S ERIAL, THIRD TESTon 02-26-2025 4H TROPONIN HS (SERIAL 3RD TROPONIN) 75 ng/L High <=35 [facility] Comment on above: Result Comment: 4h t roponin (3rd troponin) samples collected between 1h 40 min and 2h and 20 min of the 2h troponin collection time can be utilized to interpret delta troponins as per [facility] algorithms. Samples collected outside this timeframe need to be interpreted clinically.Rising or falling troponin delta between 2 ??? 15 ng/L as compared to 2h troponin valuerequires further evaluation. Performed By: #### L [id number] ####Filing Clerk: DOMENICA JARA ([id number])[facility] ([facility] Laboratory - Coagulationon 0 02-26-2025 PT Coag (Bld) [Time] 13.5 s High 9.0 - 12.0 s [facility] No Panel Informationon 02-26 4h Troponin HS (Serial 3rd Troponin) 75 ng/L High NINF - 35 ng/L [facility] Interpretation and review of laboratory results Abnormal [facility] 2h Troponin HS (Serial 2nd Troponin) 80 ng/L [facility]L [facility] Interpretation and review of laboratory results Abnormal [facility] Interpretation and review of laboratory results Abnormal [facility] Troponin HS Serial Baseline 84 ng/L High NINF - 35 ng/L [facility] Interpretation and review of laboratory results Abnormal [facility] PT Coag (Bld) [Time]on 02-26 INR Coag (PPP) [Relative time] 1.3 {INR} High 0.9 - 1.1 [facility] Progress Noteon 02-26-[address] [facility] Progress Note Normal [facility] Progress Note Normal [facility] Progress Note Normal [facility] Prothrombin Time w/INRon INR Normal [facility] Comment on above: Order Comment: 413.2 Result Comment: KIMBER ENT DISCHARGED Performed By: #### L 300.3900 #### [facility] [address] [place], [place], [address] PROTIME Normal 11.7-14.9 [facility] Comment on above: Order Comment: 413.2 Result Comment: KIMBER ENT DISCHARGED Performed By: #### L 300.3900 #### [facility] [address] [place], [address] aPTT Coag (Bld) [Time]on aPTT Coag (PPP) [Time] 48.2 s High 20.0 - 30.5 s [facility] 30on 02-25-2025 30 Normal [facility] 30 Normal [facility] APTTon 02-25-2025 aPTT Coag (Bld) [Time] 48.2 s High 20.0-30.5 [facility] Comment on above: Result Comment: ARPAN Kaplan COMMENTS:NOTE: The therapeutic time for Heparin anticoagulation, based on Xa activity inhibition, is an APTT of 46-80 seconds. Performed By: #### L [id number], [id number] ####Filing Clerk: DOMENICA JARA ([phone])[address] aPTT Coag (Bld) [Time] 49.5 s High 20.0-30.5 [facility] Comment on above: Result Comment: ARPAN Kaplan COMMENTS:NOTE: The therapeutic time for Heparin anticoagulation, based on Xa activity inhibition, is an APTT of 46-80 seconds. Performed By: #### L [id number], [id number] ####Filing Clerk: DOMENICA [id number])[address] CBC (HEMOGRAM)on 02-25-2025 Erythrocyte distribution width (RBC) [Ratio] 19.9 % High 11.5-15.0 [facility] Comment on above: Performed By: #### L [id number] ####Filing Clerk: DOMENICA [id number])[address] Hematocrit (Bld) [Volume fraction] 24.1 % Low 40.0-52.0 [facility] Comment on above: Performed By: #### L [id number] ####Filing Clerk: DOMENICA [id number])[facility] ([facility])[address] [place] [address] Hemoglobin (Bld) [Mass/Vol] 7.6 g/dL Low 13.0-18.0 [facility] Comment on above: Performed By: #### L [id number] ####Filing Clerk: DOMENICA JARA ([phone])[facility])[address] [place] [address] MCH (RBC) [Entitic mass] 29.3 pg Normal 26.0-34.0 [facility] Comment on above: Performed By: #### L [id number] ####Filing Clerk: DOMENICA JARA ([phone])[facility])[address] [place] [address] MCHC 31.5 % Normal 30.5-36.0 [facility] Comment on above: Performed By: #### L [id number] ####Filing Clerk: DOMENICA JARA ([phone])[facility] ([facility])[address] [place] [address] MCV (RBC) [Entitic vol] 93.1 fL Normal 77.0-99.0 [facility] Comment on above: Performed By: #### L [id number] ####Filing Clerk: DOMENICA JARA ([phone])[facility])[address] [place] [address] Platelet mean volume (Bld) [Entitic vol] 8.9 fL Low 9.0-12.7 [facility] Comment on above: Performed By: #### L [id number] ####Filing Clerk: DOMENICA JARA ([id number])[facility] ([facility])[address] [place] [address] Platelets (Bld) [#/Vol] 280 10*3/uL Normal 140-440 [facility] Comment on above: Performed By: #### L [id number] ####Filing Clerk: DOMENICA JARA ([phone])[facility])[address] [place] [address] RBC (Bld) [#/Vol] 2.59 10*6/uL Low 4.40-5.90 [facility] Comment on above: Performed By: #### L [id number] ####Filing Clerk: DOMENICA JARA ([id number])[facility] ([facility])[address] [place] [address] WBC (Bld) [#/Vol] 7.5 10*3/uL Normal 3.6-10.7 [facility] Comment on above: Performed By: #### L [id number] ####Filing Clerk: DOMENICA JARA ([phone])[facility] ([facility])[address] [place] [address] CBC panel Auto (Bld)on 02-25 Erythrocyte distribution width (RBC) [Ratio] 19.9 % High 11.5 - 15.0 % [facility] Hematocrit (Bld) [Volume fraction] 24.1 % Low 40.0 - 52.0 % [facility] Hemoglobin (Bld) [Mass/Vol] 7.6 g/dL Low 13.0 - 18.0 g/dL [facility] Interpretation and review of laboratory results Abnormal [facility] MCH (RBC) [Entitic mass] 29.3 pg 26. 0 - 34.0 pg [facility] MCHC (RBC) [Mass/Vol] 31.5 % 30.5 - 36.0 % [facility] MCV (RBC) [Entitic vol] 93.1 fL 77.0 - 99.0 fL [facility] Platelet mean volume (Bld) [Entitic vol] 8.9 fL Low 9.0 - 12.7 fL [facility] Platelets (Bld) [#/Vol] 280 10*3/uL 140 - 440 10*3/uL [facility] RBC (Bld) [#/Vol] 2.59 10*6/uL Low 4.40 - 5.9 0 10*6/uL [facility] WBC (Bld) [#/Vol] 7.5 10*3/uL 3.6 - 10.7 10*3/uL [facility] HIGH SENSITIVITY TROPONIN, S ERIAL BASELINEon 02-25-2025 TROPONIN HS SERIAL BASELINE 84 ng/L High <=35 [facility] Comment on above: Result Comment: In i ndividuals presenting with symptoms > 2h, a baseline troponin <= 5 ng/L suggests acutecardiac injury is unlikely and further serial testing is generally not indicated. Performed By: #### Tameka [id number] ####Filing Clerk: DOMENICA JARA ([phone])[facility])[address] [place] [address] Laboratory - Coagulationon 0 02-25-2025 PT Coag (Bld) [Time] 13.7 s High 9.0 - 12.0 s [facility] No Panel Informationon 02-25 Interpretation and review of laboratory results Abnormal [facility] Nursing Noteon 02-25-2025 Nursing Note 2322- Notified Dr. Hathaway of patient complaint of SOB and worsening chest pain that he described as dull and tight. Vitals WDL. STAT EKG ordered, patient given Nitrostat, and troponin sent down. 2330- Notified [employer] to assess the patient. Normal [facility] PROTHROMBIN TIMEon INR Coag (PPP) [Relative time] 1.3 {INR} High 0.9-1.1 [facility] Comment on above: Result Comment: Vaughn [...] Myocardial Infarction Performed By: #### L [id number], [id number] ####Filing Clerk: DOMENICA JARA ([id number])[facility] ([facility])[address] [place] [address] PT Coag (PPP) [Time] 13.5 s High 9.0-12.0 [facility] Comment on above: Performed By: #### L [id number], [id number] ####Filing Clerk: DOMENICA JARA ([phone])[facility] ([facility])[address] [place] [address] INR Coag (PPP) [Relative time] 1.3 {INR} High 0.9-1.1 [facility] Comment on above: Result Comment: Vaughn [...] Myocardial Infarction Performed By: #### Tameka AB320, [id number] ####Filing Clerk: DOMENICA JARA ([phone])[facility])[address] [place] [address] PT Coag (PPP) [Time] 13.7 s High 9.0-12.0 [facility] Comment on above: Performed By: #### Tameka AB320, [id number] ####Filing Clerk: DOMENICA JARA ([phone])[facility])[address] [place] [address] PT Coag (Bld) [Time]on 02-25 INR Coag (PPP) [Relative time] 1.3 {INR} High 0.9 - 1.1 [facility] Progress Noteon 02-25-2025 Progress Note Normal [facility] Progress Note Normal [facility] Progress Note Normal [facility] Progress Note Normal [facility] aPTT Coag (Bld) [Time]on aPTT Coag (PPP) [Time] 49.5 s High 20.0 - 30.5 s [facility] 30on 02-24-2025 30 Normal [facility] 30 Normal [facility] APTTon 02-24-2025 aPTT Coag (Bld) [Time] 54.7 s High 20.0-30.5 [facility] Comment on above: Result Comment: ARPAN Kaplan COMMENTS:NOTE: The therapeutic time for Heparin anticoagulation, based on Xa activity inhibition, is an APTT of 46-80 seconds. Performed By: #### L AB325 ####Filing Clerk: DOMENICA JARA ([phone])[facility])[address] [place] [address] aPTT Coag (Bld) [Time] 61.0 s High 20.0-30.5 [facility] Comment on above: Result Comment: ARPAN Kaplan COMMENTS:NOTE: The therapeutic time for Heparin anticoagulation, based on Xa activity inhibition, is an APTT of 46-80 seconds. Performed By: #### L AB320, [id number] ####Filing Clerk: DOMENICA JARA ([phone])[facility])[address] [place] [address] Bacteria identified Aer cx N om (Lower resp)Ordered By: Corey Pabon on 02-24-2025 Gram Stain Result Many Polymorphonuclear leukocytes per low power field Abnormal [facility] Gram Stain Result Few Epithelial cells per low power field Abnormal [facility] Gram Stain Result Positive Abnormal [facility] Gram Stain Result Negative Abnormal [facility] Gram Stain Result Few Yeast Abnormal [facility] Interpretation and review of laboratory results Abnormal [facility] HBV surface Ab IA Qnon 02-24 [facility] HBV surface Ag IA Qlon 02-24 Interpretation and review of laboratory results Normal [facility] HEPATITIS B SURFACE ANTIBODY on 02-24-2025 HEPATITIS B VIRUS SURFACE AB <8.0 Normal [facility] Comment on above: Result Comment: ARPAN Kaplan COMMENTS:Interpretation:<8.0 Non-Reactive8.0-11.9 Equivocal>= 12.0 Ab DetectedNote: If an equivocal result is interpreted, an antibody status is unable to be determined. Collect new specimen if clinically indicated. Performed By: #### L [id number], [id number] ####Filing Clerk: DOMENICA JARA ([phone])[facility])[address] [place] [address] HEPATITIS B SURFACE ANTIGENo n 02-24-2025 HEPATITIS B VIRUS SURFACE AG Not detected Normal Not Detected [facility] Comment on above: Performed By: #### L [id number], [id number] ####Filing Clerk: DOMENICA JARA ([phone])[facility] ([facility])[address] [place] [address] Laboratory - Coagulationon 0 02-24-2025 PT Coag (Bld) [Time] 13.5 s High 9.0 - 12.0 s [facility] Laboratory - Drug toxicology on 02-24-2025 Vancomycin trough [Mass/Vol] 23.4 ug/mL [facility] - Microbiology an d Antimicrobial susceptibilityon 02-24-2025 HBV surface Ab IA Qn mIU/mL [facility] HBV surface Ag IA Ql Not detected Not Detected [facility] - Microbiology an d Antimicrobial susceptibilityOrdered By: Corey Pabon on 02-24-2025 Bacteria identified Aer cx Nom (Lower resp) Few respiratory ila present. [facility] Bacteria identified Aer cx Nom (Lower resp) Moderate Klebsiella oxytoca Abnormal [facility] No Panel Informationon 02-24 [facility] Interpretation and review of laboratory results Abnormal [facility] Nursing Noteon 02-24-2025 Nursing Note Normal [facility] PROTHROMBIN TIMEon INR Coag (PPP) [Relative time] 1.3 {INR} High 0.9-1.1 [facility] Comment on above: Result Comment: Vaughn [...] Myocardial Infarction Performed By: #### L [id number], [id number] ####Filing Clerk: DOMENICA JARA ([phone])[facility] ([facility])[address] [place] [address] [place] PT Coag (PPP) [Time] 13.5 s High 9.0-12.0 [facility] Comment on above: Performed By: #### L [id number], [id number] ####Filing Clerk: DOMENICA JARA ([phone])[facility] [place] [address] PT Coag (Bld) [Time]on 02-24 INR Coag (PPP) [Relative time] 1.3 {INR} High 0.9 - 1.1 [facility] Progress Noteon 02-24-2025 Progress Note Vancomycin therapy has been discontinued by Hussain Quintana on 02/24. Thank you for the consult. Pharmacy signing off for vancomycin dosing. Marissa Iglesias, PharmD, Date: 02/24/25 Time: 4:08 PM Normal [facility] Progress Note Normal [facility] Progress Note Normal [facility] System [facility] Progress Note Normal [facility] Progress Note Normal [facility] VANCOMYCIN, AUC TIMED DOSING on 02-24-2025 VANCOMYCIN, AUC 23.4 ug/mL Normal [facility] System [facility] Comment on above: Result Comment: ARPAN Kaplan COMMENTS:Please draw random level at least >4 hours after the end of hemodialysis.Toxicity is seen at concentrations >80-100 ug/mLTherapeutic (Peak) range: 20-40Therapeutic (Trough) range: 5-10 Performed By: #### L [id number] ####Filing Clerk: DOMENICA JARA ([phone])[facility] [place] [address] Vancomycin trough [Mass/Vol] on 02-24-2025 [facility] aPTT Coag (Bld) [Time]on aPTT Coag (PPP) [Time] 54.7 s High 20.0 - 30.5 s [facility] Interpretation and review of laboratory results Abnormal [facility] [place] aPTT Coag (PPP) [Time] 61 s High 20.0 - 30.5 s [facility] [id number] 02-23-2025 [id number] Normal [facility] 36on 02-23-2025 36 Called LM to call back and schedule CT and hospital follow up with any ARMIN Normal [facility] 36 Hello, can we please schedule a 6-week CT scan for this patient and a follow-up appointment after this? Thank you Normal [facility] APTTon 02-23-2025 aPTT Coag (Bld) [Time] 49.3 s High 20.0-30.5 [facility] Comment on above: Result Comment: ARPAN Kaplan COMMENTS:NOTE: The therapeutic time for Heparin anticoagulation, based on Xa activity inhibition, is an APTT of 46-80 seconds. Performed By: #### L AB325, [id number] ####Filing Clerk: DOMENICA JARA ([phone])[facility] ([facility])[address] [place] [address] CBC (HEMOGRAM)on 02-23-2025 Erythrocyte distribution width (RBC) [Ratio] 19.7 % High 11.5-15.0 [facility] Comment on above: Performed By: #### L [id number] ####Filing Clerk: DOMENICA JARA ([phone])[facility])[address] [place] [address] Hematocrit (Bld) [Volume fraction] 27.9 % Low 40.0-52.0 [facility] Comment on above: Performed By: #### L [id number] ####Filing Clerk: DOMENICA JARA ([phone])[facility])[address] [place] [address] Hemoglobin (Bld) [Mass/Vol] 8.6 g/dL Low 13.0-18.0 [facility] Comment on above: Performed By: #### L [id number] ####Filing Clerk: DOMENICA JARA ([phone])[facility])[address] [place] [address] MCH (RBC) [Entitic mass] 28.7 pg Normal 26.0-34.0 [facility] Comment on above: Performed By: #### L [id number] ####Filing Clerk: DOMENICA JARA ([phone])[facility])[address] [place] [address] MCHC 30.8 % Normal 30.5-36.0 [facility] Comment on above: Performed By: #### L [id number] ####Filing Clerk: DOMENICA JARA ([phone])[facility] ([facility])[address] [place] [address] MCV (RBC) [Entitic vol] 93.0 fL Normal 77.0-99.0 [facility] Comment on above: Performed By: #### L [id number] ####Filing Clerk: DOMENICA JARA ([phone])[facility] ([facility])[address] [place] [address] Platelet mean volume (Bld) [Entitic vol] 8.9 fL Low 9.0-12.7 [facility] Comment on above: Performed By: #### L [id number] ####Filing Clerk: DOMENICA JARA ([phone])[facility] ([facility])[address] [place] [address] Platelets (Bld) [#/Vol] 316 10*3/uL Normal 140-440 [facility] Comment on above: Performed By: #### L AB294 ####Filing Clerk: DOMENICA JARA ([phone])[facility] ([facility])[address] [place] [address] RBC (Bld) [#/Vol] 3.00 10*6/uL Low 4.40-5.90 [facility] Comment on above: Performed By: #### L [id number] ####Filing Clerk: DOMENICA JARA ([phone])[facility] ([facility])[address] [place] [address] WBC (Bld) [#/Vol] 8.6 10*3/uL Normal 3.6-10.7 [facility] Comment on above: Performed By: #### L AB294 ####Filing Clerk: DOMENICA JARA ([phone])[facility])[address] [place] [address] CBC panel Auto (Bld)on 02-23 Erythrocyte distribution width (RBC) [Ratio] 19.7 % High 11.5 - 15.0 % [facility] Hematocrit (Bld) [Volume fraction] 27.9 % Low 40.0 - 52.0 % [facility] Hemoglobin (Bld) [Mass/Vol] 8.6 g/dL Low 13.0 - 18.0 g/dL [facility] Interpretation and review of laboratory results Abnormal [facility] MCH (RBC) [Entitic mass] 28.7 pg 26. 0 - 34.0 pg [facility] MCHC (RBC) [Mass/Vol] 30.8 % 30.5 - 36.0 % [facility] MCV (RBC) [Entitic vol] 93 fL 77.0 - 99.0 fL [facility] Platelet mean volume (Bld) [Entitic vol] 8.9 fL Low 9.0 - 12.7 fL [facility] Platelets (Bld) [#/Vol] 316 10*3/uL 140 - 440 10*3/uL [facility] RBC (Bld) [#/Vol] 3 10*6/uL Low 4.40 - 5.9 0 10*6/uL [facility] WBC (Bld) [#/Vol] 8.6 10*3/uL 3.6 - 10.7 10*3/uL [facility] COMPREHENSIVE METABOLIC PANE Victor M 02-23-2025 Albumin [Mass/Vol] 1.9 g/dL Low 3.5-5.0 [facility] Comment on above: Performed By: #### Tameka AB113, LAB17, [id number] ####Filing Clerk: DOMENICA JARA ([phone])[address] ALP [Catalytic activity/Vol] 136 U/L Normal 40-150 [facility] Comment on above: Performed By: #### Tameka ABAruna, LAB17, [id number] ####Filing Clerk: DOMENICA JARA ([phone])[facility])[address] [place] [address] ALT [Catalytic activity/Vol] 10 U/L Normal <40 [facility] Comment on above: Performed By: #### Tameka AB113, LAB17, [id number] ####Filing Clerk: DOMENICA JARA ([phone])[facility])[address] [place] [address] Anion gap [Moles/Vol] 11 mmol/L Normal 3-13 [facility] Comment on above: Performed By: #### Tameka GIMENEZ, LAB17, [id number] ####Filing Clerk: DOMENICA JARA ([phone])[facility] ([facility])[address] [place] [address] AST [Catalytic activity/Vol] 37 U/L High <34 [facility] Comment on above: Performed By: #### Tameka GIMENEZ, LAB17, [id number] ####Filing Clerk: DOMENICA JARA ([phone])[facility])[address] [place] [address] Bilirubin [Mass/Vol] 0.6 mg/dL Normal <1.2 [facility] Comment on above: Performed By: #### Tameka GIMENEZ, LAB17, [id number] ####Filing Clerk: DOMENICA JARA ([phone])[facility] ([facility])[address] [place] [address] Calcium [Mass/Vol] 9.2 mg/dL Normal 8.4-10.2 [facility] Comment on above: Performed By: #### Tameka GIMENEZ, LAB17, [id number] ####Filing Clerk: DOMENICA JARA ([phone])[facility])[address] [place] [address] [place] Chloride [Moles/Vol] 99 mmol/L Normal 98-107 [facility] Comment on above: Performed By: #### Tameka GIMENEZ, LAB17, [id number] ####Filing Clerk: DOMENICA JARA ([phone])[facility] [place] [address] [place] CO2 [Moles/Vol] 25 mmol/L Normal 22-29 [facility] Comment on above: Performed By: #### Tameka GIMENEZ, LAB17, [id number] ####Filing Clerk: DOMENICA JARA ([phone])[facility] ([facility])[address] [place] [address] [place] Creatinine [Mass/Vol] 2.78 mg/dL High 0.72-1.25 [facility] Comment on above: Performed By: #### L AB113, LAB17, [id number] ####Filing Clerk: DOMENICA JARA ([phone])[facility])[address] [place] [address] GLOMERULAR FILTRATION RATE ML/MIN/1.73 SQ M.PREDICTED 25.4 mL/min/1.73m*2 Low >60.0 [facility] Comment on above: Result Comment: Calc ulation based on the Chronic Kidney Disease Epidemiology Collaboration (CKD-EPI) equation refit without adjustment for race Performed By: #### L AB113, LAB17, [id number] ####Filing Clerk: DOMENICA JARA ([phone])[address] Glucose [Mass/Vol] 110 mg/dL High 74-100 [facility] Comment on above: Performed By: #### Tameka ABAruna, LAB17, [id number] ####Filing Clerk: DOMENICA JARA ([phone])[address] Potassium [Moles/Vol] 4.1 mmol/L Normal 3.5-5.1 [facility] Comment on above: Result Comment: [facility] potassium values may be up to 0.5 mmol/L lower than serum values. Performed By: #### L AB113, LAB17, [id number] ####Filing Clerk: DOMENICA JARA ([phone])[address] Protein [Mass/Vol] 7.1 g/dL Normal 6.4-8.3 [facility] Comment on above: Performed By: #### L AB113, LAB17, [id number] ####Filing Clerk: DOMENICA JARA ([phone])[address] Sodium [Moles/Vol] 135 mmol/L Low 136-145 [facility] Comment on above: Performed By: #### L AB113, LAB17, [id number] ####Filing Clerk: DOMENICA [phone])[facility] ([facility])[address] [place] [address] Urea nitrogen [Mass/Vol] 21 mg/dL Normal 9-23 [facility] Comment on above: Performed By: #### L AB113, LAB17, [id number] ####Filing Clerk: DOMENICA JARA ([phone])[facility] ([facility])[address] [place] [address] Comprehensive metabolic 1998 panelOrdered By: Jarred José on 02-23-2025 Albumin [Mass/Vol] 1.9 g/dL Low 3.5 - 5.0 g/dL [facility] ALP [Catalytic activity/Vol] 136 U/L 40 - 150 U/L [facility] ALT [Catalytic activity/Vol] 10 U/L NINF - 40 U/L [facility] Anion gap [Moles/Vol] 11 mmol/L 3 - 13 mmol/L [facility] AST [Catalytic activity/Vol] 37 U/L High NINF - 34 U/L [facility] Bilirubin [Mass/Vol] 0.6 mg/dL NINF - 1.2 mg/dL [facility] Calcium [Mass/Vol] 9.2 mg/dL 8.4 - 10. 2 mg/dL [facility] Chloride [Moles/Vol] 99 mmol/L 98 - 10 7 mmol/L [facility] CO2 [Moles/Vol] 25 mmol/L 22 - 29 mmol/L [facility] Creatinine [Mass/Vol] 2.78 mg/dL High 0.72 - 1.25 mg/dL [facility] GFR/1.73 sq M.predicted (S/P/Bld) [Vol rate/Area] 25.4 mL/min Low - PINF [facility] Glucose [Mass/Vol] 110 mg/dL High 74 - 100 mg/dL [facility] Interpretation and review of laboratory results Abnormal [facility] Potassium [Moles/Vol] 4.1 mmol/L 3.5 - 5.1 mmol/L [facility] Protein [Mass/Vol] 7.1 g/dL 6.4 - 8.3 g/dL [facility] Sodium [Moles/Vol] 135 mmol/L Low 136 - 145 mmol/L [facility] Urea nitrogen [Mass/Vol] 21 mg/dL 9 - 23 mg/d L [facility] Consulton 02-23-2025 Consult Normal [facility] Laboratory - Chemistry and C hemistry - challengeon 02-23-2025 Magnesium [Mass/Vol] 2 mg/dL 1.6 - 2 .6 mg/dL [facility] - Coagulationon 0 02-23-2025 PT Coag (Bld) [Time] 14 s High 9.0 - 12.0 s [facility] MAGNESIUMon 02-23-2025 Magnesium [Mass/Vol] 2.0 mg/dL Normal 1.6-2.6 [facility] Comment on above: Result Comment: ORDE R COMMENTS:Higher values can be expected in females during menses. Performed By: #### Tameka ABAruna, LAB17, [id number] ####Filing Clerk: DOMENICA JARA ([phone])[facility] [place] [address] Magnesium [Mass/Vol]on 02-23 [facility] No Panel Informationon 02-23 Interpretation and review of laboratory results Normal [facility] Interpretation and review of laboratory results Abnormal [facility] Nursing Noteon 02-23-2025 Nursing Note Normal [facility] Nursing Note Normal [facility] PHOSPHORUSon 02-23-2025 Phosphate [Mass/Vol] 2.6 mg/dL Normal 2.3-4.7 [facility] Comment on above: Performed By: #### Tameka ABAruna, LAB17, [id number] ####Filing Clerk: DOMENICA JARA ([phone])[facility] ([facility])[address] [place] [address] PROTHROMBIN TIMEon INR Coag (PPP) [Relative time] 1.3 {INR} High 0.9-1.1 [facility] Comment on above: Result Comment: Vaughn [...] Myocardial Infarction Performed By: #### L AB325, [id number] ####Filing Clerk: DOMENICA JARA ([phone])[facility] ([facility])[address] [place] [address] PT Coag (PPP) [Time] 14.0 s High 9.0-12.0 [facility] Comment on above: Performed By: #### L AB325, [id number] ####Filing Clerk: DOMENICA JARA ([phone])[facility])[address] [place] [address] PT Coag (Bld) [Time]on 02-23 INR Coag (PPP) [Relative time] 1.3 {INR} High 0.9 - 1.1 [facility] Phosphate [Moles/Vol]on 01-27 Phosphate [Mass/Vol] 2.6 mg/dL 2.3 - 4 .7 mg/dL [facility] Progress Noteon 02-23-[address] [facility] Progress Note Normal [facility] Progress [facility] Progress Note Normal [facility] Progress Note Normal [facility] US Heart TransthoracicOrdere d By: Daryn Chowdary on 02-23-2025 Aortic valve Mean systole pressure gradient by US.doppler derived full Bernoulli 10 mmHg [facility] Work Phone: Aortic valve Orifice area by US 3.1 cm2 [facility] Work Phone: Aortic valve Peak systolic flow by US.doppler 1.4 m/s [facility] Work Phone: Ascending Aorta 3.5 cm [facility] Work Phone: Ascending Aorta Index 1.99 cm/m2 [facility] Work Phone: AV Area by Peak Velocity 1.3 cm2 [facility] Work Phone: AV Area by VTI 1.5 cm2 [facility] Work Phone: AV AT 66.[address] [facility] Work Phone: AV Peak Gradient [address] [facility] Work Phone: AV Peak Velocity 2.3 m/s [facility] Work Phone: AV Velocity Ratio 0.39 [facility] Work Phone: AV VTI 39.[address] [facility] Work Phone: MALU/BSA Peak Velocity 0.7 cm2/m2 [facility] Work Phone: MALU/BSA VTI 0.9 cm2/m2 [facility] Work Phone: E/E' Lateral 21.43 [facility] Work Phone: E/E' Ratio (Averaged) 25.71 [facility] Work Phone: E/E' Septal 30 [facility] Work Phone: Est. RA Pressure 15 mmHg [facility] Work Phone: Fractional Shortening 2D 31 % 28 - 44 % [facility] Work Phone: Interpretation and review of laboratory results Abnormal [facility] Work Phone: IVC Diameter 2.5 cm [facility] Work Phone: IVSd 1.6 cm Abnormal 0.6 - 1.0 cm [facility] Work Phone: LA Diameter 3.1 cm [facility] Work Phone: LA Size Index 1.76 cm/m2 [facility] Work Phone: LA Volume 2C 69 mL Abnormal 18 - 58 mL [facility] Work Phone: LA Volume 4C 84 mL Abnormal 18 - 58 mL [facility] Work Phone: LA Volume A/L 85 mL [facility] Work Phone: LA Volume BP [...] LV E' Lateral Velocity 7 cm/s [facility] Work Phone: LV E' Septal Velocity 5 cm/s [facility] Work Phone: LV Mass 2D 201 g 88 - [address] [facility] Work Phone: LV Mass 2D Index 114.2 g/m2 49 - 115 g/m2 [facility] Work Phone: LV RWT Ratio 0.78 [facility] Work Phone: LVIDd 3.6 cm Abnormal 4.2 - 5.[address] [facility] Work Phone: LVIDd Index 2.05 cm/m2 [facility] Work Phone: LVIDs 2.[address] [facility] Work Phone: LVIDs Index 1.42 cm/m2 [facility] Work Phone: LVOT Cardiac Output 5.3 liter/minute [facility] Work Phone: LVOT Diameter [address] [facility] Work Phone: LVOT Mean Gradient [address] [facility] Work Phone: LVOT Peak Gradient [address] [facility] Work Phone: LVOT Peak Velocity 0.9 m/s [facility] Work Phone: LVOT Stroke Volume Index [...] Phone: MV Area by PHT 3 cm2 [facility] Work Phone: MV Area by VTI 1.3 cm2 [facility] Work Phone: MV E Velocity 1.5 m/s [facility] Work Phone: MV E Wave [...] Work Phone: RV Mid Dimension 4 cm [facility] Work Phone: RVSP 57 mmHg [facility] Work Phone: TAPSE 1.4 cm Abnormal 1.[address] [facility] Work Phone: TR Max Velocity 3.23 m/s [facility] Work Phone: TR Peak Gradient 42 mmHg [facility] Work Phone: [facility] Work Phone: US Heart Transthoracicon [facility] aPTT Coag (Bld) [Time]on aPTT Coag (PPP) [Time] 49.3 s High 20.0 - 30.5 s [facility] 30on 02-22-2025 30 Normal [facility] [id number] 02-22-2025 [id number] Normal [facility] [id number] [facility] per TCC request. Await review and response regarding ability to accept. TCC notified. [facility] APTTon 02-22-2025 aPTT Coag (Bld) [Time] 52.1 s High 20.0-30.5 [facility] Comment on above: Result Comment: ORDE R COMMENTS:NOTE: The therapeutic time for Heparin anticoagulation, based on Xa activity inhibition, is an APTT of 46-80 seconds. Performed By: #### L AB325 ####Filing Clerk: DOMENICA JARA ([phone])[facility])[address] [place] [address] aPTT Coag (Bld) [Time] 54.9 s High 20.0-30.5 [facility] Comment on above: Result Comment: ARPAN Kaplan COMMENTS:NOTE: The therapeutic time for Heparin anticoagulation, based on Xa activity inhibition, is an APTT of 46-80 seconds. Performed By: #### L AB325, [id number] ####Filing Clerk: DOMENICA JARA ([phone])[facility] ([facility])[address] [place] [address] BLOOD CULTUREon 02-22-2025 Bacteria identified Cx Nom (Bld) Normal [facility] Comment on above: Performed By: #### L AB462 ####Filing Clerk: DOMENICA JARA ([phone])[facility])[address] [place] [address] Bacteria identified Cx Nom (Bld) Normal [facility] Comment on above: Performed By: #### L AB462 ####Filing Clerk: DOMENICA JARA ([phone])[facility])[address] [place] [address] CBC (HEMOGRAM)on 02-22-2025 Erythrocyte distribution width (RBC) [Ratio] 19.4 % High 11.5-15.0 [facility] Comment on above: Performed By: #### L AB294 ####Filing Clerk: DOMENICA JARA ([phone])[facility] ([facility])[address] [place] [address] Hematocrit (Bld) [Volume fraction] 24.5 % Low 40.0-52.0 [facility] Comment on above: Performed By: #### L AB294 ####Filing Clerk: DOMNEICA JARA ([phone])[facility])[address] [place] [address] Hemoglobin (Bld) [Mass/Vol] 7.8 g/dL Low 13.0-18.0 [facility] Comment on above: Performed By: #### L AB294 ####Filing Clerk: DOMENICA JARA ([phone])[facility])[address] [place] [address] MCH (RBC) [Entitic mass] 29.0 pg Normal 26.0-34.0 [facility] Comment on above: Performed By: #### L AB294 ####Filing Clerk: DOMENICA JARA ([phone])[facility])[address] [place] [address] MCHC 31.8 % Normal 30.5-36.0 [facility] Comment on above: Performed By: #### L AB294 ####Filing Clerk: DOMENICA JARA ([phone])[facility])[address] [place] [address] MCV (RBC) [Entitic vol] 91.1 fL Normal 77.0-99.0 [facility] Comment on above: Performed By: #### L AB294 ####Filing Clerk: DOMENICA JARA ([phone])[facility])[address] [place] [address] Platelet mean volume (Bld) [Entitic vol] 8.9 fL Low 9.0-12.7 [facility] Comment on above: Performed By: #### L AB294 ####Filing Clerk: DOMENICA JARA ([phone])[facility])[address] [place] [address] Platelets (Bld) [#/Vol] 282 10*3/uL Normal 140-440 [facility] Comment on above: Performed By: #### L AB294 ####Filing Clerk: DOMENICA JARA ([phone])[facility])[address] [place] [address] RBC (Bld) [#/Vol] 2.69 10*6/uL Low 4.40-5.90 [facility] Comment on above: Performed By: #### L AB294 ####Filing Clerk: DOMENICA [phone])[facility] ([facility])[address] [place] [address] WBC (Bld) [#/Vol] 9.0 10*3/uL Normal 3.6-10.7 [facility] Comment on above: Performed By: #### L AB294 ####Filing Clerk: DOMENICA JARA ([phone])[facility] ([facility])[address] [place] [address] CBC panel Auto (Bld)on 02-22 Erythrocyte distribution width (RBC) [Ratio] 19.4 % High 11.5 - 15.0 % [facility] Hematocrit (Bld) [Volume fraction] 24.5 % Low 40.0 - 52.0 % [facility] Hemoglobin (Bld) [Mass/Vol] 7.8 g/dL Low 13.0 - 18.0 g/dL [facility] Interpretation and review of laboratory results Abnormal [facility] MCH (RBC) [Entitic mass] 29 pg 26. 0 - 34.0 pg [facility] MCHC (RBC) [Mass/Vol] 31.8 % 30.5 - 36.0 % [facility] MCV (RBC) [Entitic vol] 91.1 fL 77.0 - 99.0 fL [facility] Platelet mean volume (Bld) [Entitic vol] 8.9 fL Low 9.0 - 12.7 fL [facility] Platelets (Bld) [#/Vol] 282 10*3/uL 140 - 440 10*3/uL [facility] RBC (Bld) [#/Vol] 2.69 10*6/uL Low 4.40 - 5.9 0 10*6/uL [facility] WBC (Bld) [#/Vol] 9 10*3/uL 3.6 - 10.7 10*3/uL [facility] COMPREHENSIVE METABOLIC PANE Victor M 02-22-2025 Albumin [Mass/Vol] 1.8 g/dL Low 3.5-5.0 [facility] Comment on above: Performed By: #### L AB113, [id number], LAB17 ####Filing Clerk: DOMENICA JARA ([phone])[facility] [place] [address] ALP [Catalytic activity/Vol] 120 U/L Normal 40-150 [facility] Comment on above: Performed By: #### Tameka ABAruna, [id number], LAB17 ####Filing Clerk: DOMENICA JRAA ([phone])[facility] ([facility])[address] [place] [address] ALT [Catalytic activity/Vol] 9 U/L Normal <40 [facility] Comment on above: Performed By: #### Tameka ABAruna, [id number], LAB17 ####Filing Clerk: DOMENICA JARA ([phone])[facility] ([facility])[address] [place] [address] Anion gap [Moles/Vol] 13 mmol/L Normal 3-13 [facility] Comment on above: Performed By: #### Tameka ABAruna, [id number], LAB17 ####Filing Clerk: DOMENICA JARA ([phone])[facility] ([facility])[address] [place] [address] AST [Catalytic activity/Vol] 35 U/L High <34 [facility] Comment on above: Performed By: #### Tameka GIMENEZ, [id number], LAB17 ####Filing Clerk: DOMENICA JARA ([phone])[facility] ([facility])[address] [place] [address] Bilirubin [Mass/Vol] 0.6 mg/dL Normal <1.2 [facility] Comment on above: Performed By: #### Tameka GIMENEZ, [id number], LAB17 ####Filing Clerk: DOMENICA JARA ([phone])[facility] ([facility])[address] [place] [address] Calcium [Mass/Vol] 9.2 mg/dL Normal 8.4-10.2 [facility] Comment on above: Performed By: #### Tameka AB113, [id number], LAB17 ####Filing Clerk: DOMENICA JARA ([phone])[facility] ([facility])[address] [place] [address] Chloride [Moles/Vol] 94 mmol/L Low 98-107 [facility] Comment on above: Performed By: #### Tameka AB113, [id number], LAB17 ####Filing Clerk: DOMENICA JARA ([phone])[facility])[address] [place] [address] CO2 [Moles/Vol] 25 mmol/L Normal 22-29 [facility] Comment on above: Performed By: #### Tameka AB113, [id number], LAB17 ####Filing Clerk: DOMENICA JARA ([phone])[facility])[address] [place] [address] Creatinine [Mass/Vol] 3.99 mg/dL High 0.72-1.25 [facility] Comment on above: Performed By: #### Tameka ABAruna, [id number], LAB17 ####Filing Clerk: DOMENICA JARA ([phone])[facility])[address] [place] [address] GLOMERULAR FILTRATION RATE ML/MIN/1.73 SQ M.PREDICTED 16.5 mL/min/1.73m*2 Low >60.0 [facility] Comment on above: Result Comment: Calc ulation based on the Chronic Kidney Disease Epidemiology Collaboration (CKD-EPI) equation refit without adjustment for race Performed By: #### Tameka ABAruna, [id number], LAB17 ####Filing Clerk: DOMENICA JARA ([phone])[facility])[address] [place] [address] Glucose [Mass/Vol] 121 mg/dL High 74-100 [facility] Comment on above: Performed By: #### Tameka AB113, [id number], LAB17 ####Filing Clerk: DOMENICA JARA ([phone])[facility])[address] [place] [address] [place] Potassium [Moles/Vol] 3.4 mmol/L Low 3.5-5.1 [facility] Comment on above: Result Comment: [facility] potassium values may be up to 0.5 mmol/L lower than serum values. Performed By: #### L AB113, [id number], LAB17 ####Filing Clerk: DOMENICA JARA ([phone])[facility] ([facility])[address] [place] [address] Protein [Mass/Vol] 6.7 g/dL Normal 6.4-8.3 [facility] Comment on above: Performed By: #### L AB113, [id number], LAB17 ####Filing Clerk: DOMENICA JARA ([phone])[facility] ([facility])[address] [place] [address] Sodium [Moles/Vol] 132 mmol/L Low 136-145 [facility] Comment on above: Performed By: #### L AB113, [id number], LAB17 ####Filing Clerk: DOMENICA JARA ([phone])[facility] ([facility])[address] [place] [address] Urea nitrogen [Mass/Vol] 36 mg/dL High 9-23 [facility] Comment on above: Performed By: #### L AB113, [id number], LAB17 ####Filing Clerk: DOMENICA JARA ([phone])[facility] ([facility])[address] [place] [address] Comprehensive metabolic 1998 panelOrdered By: Michelle Olmstead on 02-22-2025 Albumin [Mass/Vol] 1.8 g/dL Low 3.5 - 5.0 g/dL [facility] ALP [Catalytic activity/Vol] 120 U/L 40 - 150 U/L [facility] ALT [Catalytic activity/Vol] 9 U/L NINF - 40 U/L [facility] Anion gap [Moles/Vol] 13 mmol/L 3 - 13 mmol/L [facility] AST [Catalytic activity/Vol] 35 U/L High NINF - 34 U/L [facility] Bilirubin [Mass/Vol] 0.6 mg/dL NINF - 1.2 mg/dL [facility] Calcium [Mass/Vol] 9.2 mg/dL 8.4 - 10. 2 mg/dL [facility] Chloride [Moles/Vol] 94 mmol/L Low 98 - 10 7 mmol/L [facility] CO2 [Moles/Vol] 25 mmol/L 22 - 29 mmol/L [facility] Creatinine [Mass/Vol] 3.99 mg/dL High 0.72 - 1.25 mg/dL [facility] GFR/1.73 sq M.predicted (S/P/Bld) [Vol rate/Area] 16.5 mL/min Low - PINF [facility] Glucose [Mass/Vol] 121 mg/dL High 74 - 100 mg/dL [facility] Interpretation and review of laboratory results Abnormal [facility] Potassium [Moles/Vol] 3.4 mmol/L Low 3.5 - 5.1 mmol/L [facility] Protein [Mass/Vol] 6.7 g/dL 6.4 - 8.3 g/dL [facility] Sodium [Moles/Vol] 132 mmol/L Low 136 - 145 mmol/L [facility] Urea nitrogen [Mass/Vol] 36 mg/dL High 9 - 23 mg/d L [facility] Consulton 02-22-2025 Consult Normal [facility] Consult Normal [facility] Consult Normal [facility] LEGIONELLA AND STREPTOCOCCUS URINE ANTIGENon 02-22-2025 LEGIONELLA AND STREPTOCOCCUS URINE ANTIGEN Normal [facility] Comment on above: Performed By: #### L [id number] ####Filing Clerk: DOMENICA JARA ([phone])[facility] ([facility])[address] [place] [address] Laboratory - Chemistry and C hemistry - challengeon 02-22-2025 Magnesium [Mass/Vol] 2.2 mg/dL 1.6 - 2 .6 mg/dL [facility] Laboratory - Coagulationon 0 02-22-2025 PT Coag (Bld) [Time] 14.9 s High 9.0 - 12.0 s [facility] - Drug toxicology on 02-22-2025 Vancomycin [Mass/Vol] 12.6 ug/mL [facility] MAGNESIUMon 02-22-2025 Magnesium [Mass/Vol] 2.2 mg/dL Normal 1.6-2.6 [facility] Comment on above: Result Comment: ARPAN Kaplan COMMENTS:Higher values can be expected in females during menses. Performed By: #### L AB113, [id number], LAB17 ####Filing Clerk: DOMENICA JARA ([phone])[facility] ([facility])[address] [place] [address] MRSA BY PCRon 02-22-2025 MRSA BY PCR Normal [facility] Comment on above: Performed By: #### L [id number] ####Filing Clerk: DOMENICA JARA ([phone])[facility] ([facility])[address] [place] [address] MRSA DNA EMMANUEL+probe Ql (Nose) on 02-22-2025 Interpretation and review of laboratory results Normal [facility] mecA gene Not detected Not Detected [facility] Staphylococcus aureus Not detected Not Detected [facility] Magnesium [Mass/Vol]on 02-22 [facility] No Panel Informationon 02-22 [facility] Interpretation and review of laboratory results Normal [facility] Interpretation and review of laboratory results Abnormal [facility] No Panel InformationOrdered By: Lorin Bryant on 02-22-2025 Interpretation and review of laboratory results Normal [facility] Legionella pneumophila Ag Not detected Not Detected [facility] Streptococcus pneumoniae Ag Not detected Not Detected [facility] Nursing Noteon 02-22-2025 Nursing Note Pt keeps ordering door dash items. Have explained to pt on multiple occasions that staff cannot leave floor to get items and that it is after hours and door dashers most likely will not be allowed up onto the floors. Normal [facility] Nursing Note Normal [facility] Nursing Note Normal [facility] PHOSPHORUSon 02-22-2025 Phosphate [Mass/Vol] 3.2 mg/dL Normal 2.3-4.7 [facility] Comment on above: Performed By: #### L AB113, [id number], LAB17 ####Filing Clerk: DOMENICA JARA ([phone])[facility] [place] [address] [place] PNEUMONIA PCR PANELon 2024 PNEUMONIA PCR PANEL Normal [facility] Comment on above: Performed By: #### L [id number] ####Filing Clerk: DOMENICA JARA ([phone])[facility] ([facility])[address] [place] [address] [place] PROTHROMBIN TIMEon INR Coag (PPP) [Relative time] 1.4 {INR} High 0.9-1.1 [facility] Comment on above: Result Comment: Vaughn [...] Myocardial Infarction Performed By: #### L AB325, [id number] ####Filing Clerk: DOMENICA JARA ([phone])[facility])[address] [place] [address] PT Coag (PPP) [Time] 14.9 s High 9.0-12.0 [facility] Comment on above: Performed By: #### L AB325, [id number] ####Filing Clerk: DOMENICA JARA ([phone])[facility] ([facility])[address] [place] [address] PT Coag (Bld) [Time]on 02-22 INR Coag (PPP) [Relative time] 1.4 {INR} High 0.9 - 1.1 [facility] Phosphate [Moles/Vol]on 01-26 Phosphate [Mass/Vol] 3.2 mg/dL 2.3 - 4 .7 mg/dL [facility] Progress Noteon 02-22-2025 Progress Note Normal [facility] Progress Note Normal [facility] Progress Note Normal [facility] Progress Note OCCUPATIONAL THERAPY [facility] Name/MRN: Jair Snyder ([id number]) Date: 02/22/2025 PT refusing to participate in therapy this AM, will continue to follow and re approach for OT eval. Ro Farnsworth, OT Normal [facility] Progress Note Normal [facility] Progress Note Normal [facility] RESPIRATORY CULTURE AND STAI Non 02-22-2025 RESPIRATORY CULTURE AND STAIN Normal [facility] Comment on above: Performed By: #### L AB900 ####Filing Clerk: DOMENICA JARA ([phone])[facility] ([facility])[address] [place] [address] Respiratory pathogens DNA an d RNA panel EMMANUEL+non-probe (Lower resp)Ordered By: Odalys Bustamante on 02-22-2025 Acinetobacter baumannii complex Not detected Not Detected [facility] Adenovirus Not detected Not [facility] Chlamydia pneumoniae Not detected Not Detected [facility] Enterobacter cloacae complex Not detected Not Detected [facility] Escherichia coli Not detected Not Detected [facility] FLUAV RNA EMMANUEL+non-probe Ql (Lower resp) Not detected Not Detected [facility] FLUBV RNA EMMANUEL+non-probe Ql (Lower resp) Not detected Not Detected [facility] Haemophilus influenzae Not detected Not Detecte d [facility] Human Metapneumovirus Not detected Not Detected [facility] Human Rhinovirus/Enterovirus Not detected Not Detected [facility] Interpretation and review of laboratory results Abnormal [facility] Klebsiella (Enterobacter) aerogenes Not detected Not Detected [facility] Klebsiella oxytoca Detected Abnormal Not Detected [facility] Klebsiella pneumoniae Not detected Not Detected [facility] Legionella pneumophila Not detected Not Detecte d [facility] mecA Not detected Not Detected [facility] Moraxella catarrhalis Not detected Not Detected [facility] Mycoplasma pneumoniae Not detected Not Detected [facility] Parainfluenza virus Not detected Not Detected [facility] Proteus spp Not detected Not Detected [facility] Pseudomonas aeruginosa Not detected Not Detecte d [facility] RSV RNA EMMANUEL+probe Ql (Resp) Not detected Not Detected [facility] S. agalactiae Org specific cx Ql (Vag fld) Not detected Not Detected [facility] SARS-CoV-2 (COVID-19) RNA EMMANUEL+non-probe Ql (Nph) Not detected Not Detected [facility] Serratia marcescens Not detected Not Detected [facility] Staphylococcus aureus Detected Abnormal Not Detected [facility] Streptococcus pneumoniae Not detected Not Detec yo [facility] Streptococcus pyogenes Not detected Not Detecte d [facility] VANCOMYCIN, RANDOMon 025 VANCOMYCIN 12.6 ug/mL Normal [facility] Comment on above: Result Comment: ARPAN Kaplan COMMENTS:This level is ordered to be drawn 4 hours post- HD. ThanksToxicity is seen at concentrations >80-100 ug/mLTherapeutic (Peak) range: 20-40Therapeutic (Trough) range: 5-10 Performed By: #### L AB40 ####Filing Clerk: DOMENICA JARA ([phone])[facility] ([facility])[address] [place] [address] aPTT Coag (Bld) [Time]on aPTT Coag (PPP) [Time] 52.1 s High 20.0 - 30.5 s [facility] Interpretation and review of laboratory results Abnormal [facility] aPTT Coag (PPP) [Time] 54.9 s High 20.0 - 30.5 s [facility] 30on 02-21-2025 30 Normal [facility] [id number] 02-21-2025 [id number] [facility]Tiffanie campbell signed by Kaity Sepulveda RN on 02/21/2025 at 12:54 PM Normal [facility] [id number] Normal [facility] 36on 02-21-2025 36 Normal [facility] APTTon 02-21-2025 aPTT Coag (Bld) [Time] 50.3 s High 20.0-30.5 [facility] Comment on above: Result Comment: ARPAN Kaplan COMMENTS:NOTE: The therapeutic time for Heparin anticoagulation, based on Xa activity inhibition, is an APTT of 46-80 seconds. Performed By: #### L AB325 ####Filing Clerk: DOMENICA JARA ([phone])[facility] ([facility])[address] [place] [address] aPTT Coag (Bld) [Time] 32.6 s High 20.0-30.5 [facility] Comment on above: Result Comment: ARPAN Kaplan COMMENTS:NOTE: The therapeutic time for Heparin anticoagulation, based on Xa activity inhibition, is an APTT of 46-80 seconds. Performed By: #### L AB325 ####Filing Clerk: DOMENICA JARA ([phone])[facility] ([facility])[address] [place] [address] BLOOD TYPE AND SCREEN GELon 02-21-2025 ABO GROUPING O Normal [facility] Comment on above: Performed By: #### L AB276 ####Filing Clerk: DOMENICA JARA ([phone])[facility] ([facility])[address] [place] [address] RH TYPE IN BLOOD Negative Normal [facility] Comment on above: Performed By: #### L AB276 ####Filing Clerk: DOMENICA JARA ([phone])[facility] ([facility])[address] [place] [address] Blood type and Crossmatch pa freida (Bld)on 02-21-2025 ABO group Nom (Bld) O [facility] Blood group antibody screen GEL Ql Negative [facility] D Ag Ql (RBC) Negative [facility] h [facility] C-REACTIVE PROTEINon 025 CRP [Mass/Vol] 60.3 mg/L High <5.0 [facility] Comment on above: Performed By: #### L AB149, [id number], LAB17, PEL631, THI500 ####Filing Clerk: DOMENICA JARA ([phone])[facility] ([facility])[address] [place] [address] CBC (HEMOGRAM)on 02-21-2025 Erythrocyte distribution width (RBC) [Ratio] 19.0 % High 11.5-15.0 [facility] Comment on above: Performed By: #### L AB294 ####Filing Clerk: DOMENICA JARA ([phone])[facility] ([facility])[address] [place] [address] Hematocrit (Bld) [Volume fraction] 25.7 % Low 40.0-52.0 [facility] Comment on above: Performed By: #### L AB294 ####Filing Clerk: DOMENICA JARA ([phone])[facility])[address] [place] [address] Hemoglobin (Bld) [Mass/Vol] 8.3 g/dL Low 13.0-18.0 [facility] Comment on above: Performed By: #### L AB294 ####Filing Clerk: DOMENICA JARA ([phone])[facility])[address] [place] [address] MCH (RBC) [Entitic mass] 29.0 pg Normal 26.0-34.0 [facility] Comment on above: Performed By: #### L AB294 ####Filing Clerk: DOMENICA JARA ([phone])[facility])[address] [place] [address] MCHC 32.3 % Normal 30.5-36.0 [facility] Comment on above: Performed By: #### L AB294 ####Filing Clerk: DOMENICA JARA ([phone])[facility])[address] [place] [address] MCV (RBC) [Entitic vol] 89.9 fL Normal 77.0-99.0 [facility] Comment on above: Performed By: #### L AB294 ####Filing Clerk: DOMENICA JARA ([phone])[facility])[address] [place] [address] Platelet mean volume (Bld) [Entitic vol] 8.9 fL Low 9.0-12.7 [facility] Comment on above: Performed By: #### L AB294 ####Filing Clerk: DOMENICA JARA ([phone])[facility])[address] [place] [address] Platelets (Bld) [#/Vol] 316 10*3/uL Normal 140-440 [facility] Comment on above: Performed By: #### L AB294 ####Filing Clerk: DOMENICA JARA ([phone])[facility])[address] [place] [address] RBC (Bld) [#/Vol] 2.86 10*6/uL Low 4.40-5.90 [facility] Comment on above: Performed By: #### L AB294 ####Filing Clerk: DOMENICA JARA ([phone])[facility] ([facility])[address] [place] [address] WBC (Bld) [#/Vol] 7.0 10*3/uL Normal 3.6-10.7 [facility] Comment on above: Performed By: #### L AB294 ####Filing Clerk: DOMENICA JARA ([phone])[facility] [place] [address] CBC panel Auto (Bld)on 02-21 Erythrocyte distribution width (RBC) [Ratio] 19 % High 11.5 - 15.0 % [facility] Hematocrit (Bld) [Volume fraction] 25.7 % Low 40.0 - 52.0 % [facility] Hemoglobin (Bld) [Mass/Vol] 8.3 g/dL Low 13.0 - 18.0 g/dL [facility] Interpretation and review of laboratory results Abnormal [facility] MCH (RBC) [Entitic mass] 29 pg 26. 0 - 34.0 pg [facility] MCHC (RBC) [Mass/Vol] 32.3 % 30.5 - 36.0 % [facility] MCV (RBC) [Entitic vol] 89.9 fL 77.0 - 99.0 fL [facility] Platelet mean volume (Bld) [Entitic vol] 8.9 fL Low 9.0 - 12.7 fL [facility] Platelets (Bld) [#/Vol] 316 10*3/uL 140 - 440 10*3/uL [facility] RBC (Bld) [#/Vol] 2.86 10*6/uL Low 4.40 - 5.9 0 10*6/uL [facility] WBC (Bld) [#/Vol] 7 10*3/uL 3.6 - 10.7 10*3/uL [facility] COMPREHENSIVE METABOLIC PANE Victor M 02-21-2025 Albumin [Mass/Vol] 2.0 g/dL Low 3.5-5.0 [facility] Comment on above: Performed By: #### L AB149, [id number], LAB17, MCZ043, BPB265 ####Filing Clerk: DOMENICA JARA ([phone])[facility] ([facility])[address] [place] [address] ALP [Catalytic activity/Vol] 120 U/L Normal 40-150 [facility] Comment on above: Performed By: #### L AB149, [id number], LAB17, CFN509, AVG550 ####Filing Clerk: DOMENICA JARA ([phone])[facility] ([facility])[address] [place] [address] ALT [Catalytic activity/Vol] 8 U/L Normal <40 [facility] Comment on above: Performed By: #### L AB149, [id number], LAB17, [id number], QGU244 ####Filing Clerk: DOMENICA JARA ([phone])[facility] ([facility])[address] [place] [address] Anion gap [Moles/Vol] 12 mmol/L Normal 3-13 [facility] Comment on above: Performed By: #### L AB149, [id number], LAB17, RIX319, JNV280 ####Filing Clerk: DOMENICA JARA ([phone])[facility] ([facility])[address] [place] [address] AST [Catalytic activity/Vol] 39 U/L High <34 [facility] Comment on above: Performed By: #### L AB149, [id number], LAB17, GLZ771, FGK085 ####Filing Clerk: DOMENICA JARA ([phone])[facility] ([facility])[address] [place] [address] Bilirubin [Mass/Vol] 0.8 mg/dL Normal <1.2 [facility] Comment on above: Performed By: #### L AB149, [id number], LAB17, HGL180, AYT080 ####Filing Clerk: DOMENICA JARA ([phone])[facility])[address] [place] [address] Calcium [Mass/Vol] 9.3 mg/dL Normal 8.4-10.2 [facility] Comment on above: Performed By: #### L AB149, [id number], LAB17, MGZ871, ELL375 ####Filing Clerk: DOMENICA JARA ([phone])[facility] ([facility])[address] [place] [address] [place] Chloride [Moles/Vol] 91 mmol/L Low 98-107 [facility] Comment on above: Performed By: #### L AB149, [id number], LAB17, DCO191, MGM362 ####Filing Clerk: DOMENICA JARA ([phone])[facility] ([facility])[address] [place] [address] CO2 [Moles/Vol] 28 mmol/L Normal 22-29 [facility] Comment on above: Performed By: #### L AB149, [id number], LAB17, FJC642, CDO159 ####Filing Clerk: DOMENICA JARA ([phone])[facility])[address] [place] [address] Creatinine [Mass/Vol] 2.89 mg/dL High 0.72-1.25 [facility] Comment on above: Performed By: #### L AB149, [id number], LAB17, PJA480, STR062 ####Filing Clerk: DOMENICA JARA ([phone])[facility])[address] [place] [address] GLOMERULAR FILTRATION RATE ML/MIN/1.73 SQ M.PREDICTED 24.3 mL/min/1.73m*2 Low >60.0 [facility] Comment on above: Result Comment: Calc ulation based on the Chronic Kidney Disease Epidemiology Collaboration (CKD-EPI) equation refit without adjustment for race Performed By: #### L AB149, [id number], LAB17, OJT202, GSE240 ####Filing Clerk: DOMENICA JARA ([phone])[facility])[address] [place] [address] Glucose [Mass/Vol] 74 mg/dL Normal 74-100 [facility] Comment on above: Performed By: #### L AB149, [id number], LAB17, NCO294, RWO706 ####Filing Clerk: DOMENICA JARA ([phone])[facility] ([address] Potassium [Moles/Vol] 3.1 mmol/L Low 3.5-5.1 [facility] Comment on above: Result Comment: [facility] potassium values may be up to 0.5 mmol/L lower than serum values. Performed By: #### L AB149, [id number], LAB17, ISB871, GKZ490 ####Filing Clerk: DOMENICA JARA ([phone])[facility] ([facility])[address] [place] [address] Protein [Mass/Vol] 6.8 g/dL Normal 6.4-8.3 [facility] Comment on above: Performed By: #### L AB149, [id number], LAB17, BFV951, HZB538 ####Filing Clerk: DOMENICA JARA ([phone])[facility] ([facility])[address] [place] [address] Sodium [Moles/Vol] 131 mmol/L Low 136-145 [facility] Comment on above: Performed By: #### L AB149, [id number], LAB17, IGL794, LQG895 ####Filing Clerk: DOMENICA JARA ([phone])[facility])[address] [place] [address] Urea nitrogen [Mass/Vol] 29 mg/dL High 9-23 [facility] Comment on above: Performed By: #### L AB149, [id number], LAB17, EEN489, TMW241 ####Filing Clerk: DOMENICA JARA ([phone])[facility])[address] [place] [address] CRP [Mass/Vol]on 02-21-2025 Interpretation and review of laboratory results Abnormal [facility] Comprehensive metabolic 1998 panelon 02-21-2025 Albumin [Mass/Vol] 2 g/dL Low 3.5 - 5.0 g/dL [facility] ALP [Catalytic activity/Vol] 120 U/L 40 - 150 U/L [facility] ALT [Catalytic activity/Vol] 8 U/L NINF - 40 U/L [facility] Anion gap [Moles/Vol] 12 mmol/L 3 - 13 mmol/L [facility] AST [Catalytic activity/Vol] 39 U/L High NINF - 34 U/L [facility] Bilirubin [Mass/Vol] 0.8 mg/dL NINF - 1.2 mg/dL [facility] Calcium [Mass/Vol] 9.3 mg/dL 8.4 - 10. 2 mg/dL [facility] Chloride [Moles/Vol] 91 mmol/L Low 98 - 10 7 mmol/L [facility] CO2 [Moles/Vol] 28 mmol/L 22 - 29 mmol/L [facility] Creatinine [Mass/Vol] 2.89 mg/dL High 0.72 - 1.25 mg/dL [facility] GFR/1.73 sq M.predicted (S/P/Bld) [Vol rate/Area] 24.3 mL/min Low - PINF [facility] Glucose [Mass/Vol] 74 mg/dL 74 - 100 mg/dL [facility] Potassium [Moles/Vol] 3.1 mmol/L Low 3.5 - 5.1 mmol/L [facility] Protein [Mass/Vol] 6.8 g/dL 6.4 - 8.3 g/dL [facility] Sodium [Moles/Vol] 131 mmol/L Low 136 - 145 mmol/L [facility] [facility] Urea nitrogen [Mass/Vol] 29 mg/dL High 9 - 23 mg/d L [facility] Consulton 02-21-2025 Consult Normal [facility] Consult Normal [facility] Consult Normal [facility] Consult Normal [facility] Laboratory - Chemistry and C hemistry - challengeon 02-21-2025 CRP [Mass/Vol] 60.3 mg/L High NINF - 5.0 mg/L [facility] Procalcitonin [Mass/Vol] 0.68 ng/mL High PROSPER F - 0.07 ng/mL [facility] Magnesium [Mass/Vol] 2.2 mg/dL 1.6 - 2 .6 mg/dL [facility] MAGNESIUMon 02-21-2025 Magnesium [Mass/Vol] 2.2 mg/dL Normal 1.6-2.6 [facility] Comment on above: Result Comment: ORDE R COMMENTS:Higher values can be expected in females during menses. Performed By: #### L AB149, [id number], LAB17, [id number], [id number] ####Filing Clerk: DOMENICA JARA ([phone])[facility] ([facility])[address] [place] [address] [place] Magnesium [Mass/Vol]on 02-21 Interpretation and review of laboratory results Normal [facility] No Panel Informationon 02-21 Interpretation and review of laboratory results Abnormal [facility] Nursing Noteon 02-21-2025 Nursing Note Pt ordered [employer] food. Assisted pt to sit up on bedside to eat. Normal [facility] Nursing Note Normal [facility] Nursing Note Pt declining scheduled medications until after RN calls facility to see if he is actively taking those medications" per pt request. This RN spoke with RN at [facility] to verify medications that pt is taking. Normal [facility] Nursing Note Normal [facility] Nursing Note Pt removed NC from nose, stated he doesn't need it anymore. Respiratory Therapy came in to give pt, scheduled breathing treatment, pt stated he didn't need one." Normal [facility] Nursing Note Normal [facility] PHOSPHORUSon 02-21-2025 Phosphate [Mass/Vol] 2.0 mg/dL Low 2.3-4.7 [facility] Comment on above: Performed By: #### L AB149, [id number], LAB17, [id number], [id number] ####Filing Clerk: DOMENICA JARA ([phone])[facility] ([facility])[address] [place] [address] PROCALCITONIN TESTon 025 PROCALCITONIN 0.68 ng/mL High <0.07 [facility] Comment on above: Result Comment: ORDE R COMMENTS:PCT <0.50 = Low risk of severe sepsis and/or septic shock.PCT >2.00 = High risk of severe sepsis and/or septic shock. Performed By: #### L AB149, [id number], LAB17, [id number], [id number] ####Filing Clerk: DOMENICA JARA ([phone])[facility] ([facility])[address] [place] [address] [place] Phosphate [Moles/Vol]on 01-26 Phosphate [Mass/Vol] 2 mg/dL Low 2.3 - 4 .7 mg/dL [facility] Procalcitonin [Mass/Vol]on 0 02-21-2025 Interpretation and review of laboratory results Abnormal [facility] Progress Noteon 02-21-2025 Progress Note PHYSICAL THERAPY [facility] Name/MRN: Jair Snyder ([id number]) Date: 02/21/2025 Pt declined to work with therapy at this time, stating he wanted to eat first. Will reattempt at a later date. Sangeeta Sarabia, PT Normal [facility] Progress Note Normal [facility] Progress Note Normal [facility] RESPIRATORY PATHOGENS PANEL BY PCRon 02-21-2025 RESPIRATORY PATHOGENS PANEL BY PCR Normal [facility] Comment on above: Performed By: #### L [id number] ####Filing Clerk: DOMENICA JARA ([phone])[facility] ([facility] Respiratory pathogens DNA an d RNA panel EMMANUEL+non-probe (Nph)on 02-21-2025 Adenovirus Not detected Not Detected [facility] B. pertussis DNA EMMANUEL+probe Ql (Unsp spec) Not detected Not Detected [facility] ealth Bordetella parapertussis Not detected Not Detec yo [facility] Chlamydia pneumoniae Not detected Not Detected [facility] Coronavirus 229E Not detected Not Detected [facility] Coronavirus HKU1 Not detected Not Detected [facility] Coronavirus NL63 Not detected Not Detected [facility] Coronavirus OC43 Not detected Not Detected [facility] FLUAV RNA EMMANUEL+non-probe Ql (Nph) Not detected Not Detected [facility] FLUBV RNA EMMANUEL+non-probe Ql (Nph) Not detected Not Detected [facility] Human Metapneumovirus Not detected Not Detected [facility] Human Rhinovirus/Enterovirus Not detected Not Detected [facility] Interpretation and review of laboratory results Normal [facility] Mycoplasma pneumoniae Not detected Not Detected [facility] Parainfluenza 1 Not detected Not Detected [facility] Parainfluenza 2 Not detected Not Detected [facility] Parainfluenza 3 Not detected Not Detected [facility] Parainfluenza 4 Not detected Not Detected [facility] Respiratory Syncytial Virus Not detected Not Detected [facility] SARS-CoV-2 (COVID-19) RNA EMMANUEL+non-probe Ql (Nph) Not detected Not Detected [facility] aPTT Coag (Bld) [Time]on aPTT Coag (PPP) [Time] 50.3 s High 20.0 - 30.5 s [facility] Interpretation and review of laboratory results Abnormal [facility] aPTT Coag (PPP) [Time] 32.6 s High 20.0 - 30.5 s [facility] Interpretation and review of laboratory results Abnormal [facility] APTTon 02-20-2025 aPTT Coag (Bld) [Time] 26.2 s Normal 20.0-30.5 [facility] Comment on above: Result Comment: ARPAN Kaplan COMMENTS:NOTE: The therapeutic time for Heparin anticoagulation, based on Xa activity inhibition, is an APTT of 46-80 seconds. Performed By: #### L [id number], [id number] ####Filing Clerk: FENG CONSTANTINO ([phone])[facility] ([facility] [place] [address] Absolute lymphocyte countOrd ered By: Kayley Melendrez on 02-20-2025 Lymphocytes Auto (Unsp spec) [#/Vol] 1.13 10*3/uL 0.83-4.51 [facility] Absolute neutrophil countOrd ered By: Kayley Melendrez on 02-20-2025 Neutrophils (Bld) [#/Vol] 4.6 10*3/uL 2.0-7.7 [facility] Anion gap in Serum or Plasma Ordered By: Kayley Melendrez on 02-20-2025 Anion gap [Moles/Vol] 12 mmol/L 5-15 [facility] Automated lymphocyte count a s percentage of total leukocytesOrdered By: Kayley Melendrez on 02-20-2025 Lymphocytes/100 WBC Auto (Unsp spec) 16.4 % Low 19-41 [facility] BASIC METABOLIC PANELon 01-26 Anion gap [Moles/Vol] 12 mmol/L Normal 3-13 [facility] Comment on above: Performed By: #### L AB15 ####Filing Clerk: FENG CONSTANTINO ([phone])[facility] ([facility])[address] Calcium [Mass/Vol] 9.6 mg/dL Normal 8.4-10.2 [facility] Comment on above: Performed By: #### L AB15 ####Filing Clerk: FENG CONSTANTINO ([phone])[facility] [place] ([facility])[address] Chloride [Moles/Vol] 92 mmol/L Low 98-107 [facility] Comment on above: Performed By: #### L AB15 ####Filing Clerk: FENG CONSTANTINO ([phone])[facility] [place] ([facility])[address] CO2 [Moles/Vol] 29 mmol/L Normal 22-29 [facility] Comment on above: Performed By: #### L AB15 ####Filing Clerk: FENG CONSTANTINO ([phone])[facility] [place] ([facility])[address] Creatinine [Mass/Vol] 2.57 mg/dL High 0.72-1.25 [facility] Comment on above: Performed By: #### L AB15 ####Filing Clerk: FENG CONSTANTINO ([phone])[facility] [place] ([facility])[address] GLOMERULAR FILTRATION RATE ML/MIN/1.73 SQ M.PREDICTED 27.9 mL/min/1.73m*2 Low >60.0 [facility] Comment on above: Result Comment: Calc ulation based on the Chronic Kidney Disease Epidemiology Collaboration (CKD-EPI) equation refit without adjustment for race Performed By: #### L AB15 ####Filing Clerk: FENG CONSTANTINO ([phone])[facility] [place] ([facility])[address] [place] [address] [place] Glucose [Mass/Vol] 80 mg/dL Normal 74-100 [facility] Comment on above: Performed By: #### L AB15 ####Filing Clerk: FENG CONSTANTINO ([phone])[facility] [place] ([facility])[address] Potassium [Moles/Vol] 3.1 mmol/L Low 3.5-5.1 [facility] Comment on above: Result Comment: [facility] potassium values may be up to 0.5 mmol/L lower than serum values. Performed By: #### L AB15 ####Filing Clerk: FENG CONSTANTINO ([phone])[facility] ([facility])[address] Sodium [Moles/Vol] 133 mmol/L Low 136-145 [facility] Comment on above: Performed By: #### L AB15 ####Filing Clerk: FENG CONSTANTINO ([phone])[facility] ([facility])[address] Urea nitrogen [Mass/Vol] 29 mg/dL High 9-23 [facility] Comment on above: Performed By: #### L AB15 ####Filing Clerk: FENG CONSTANTINO ([phone])[facility] ([facility])[address] BUN/creatinine ratioOrdered By: Kayley Melendrez on 02-20-2025 Urea nitrogen/Creatinine [Mass ratio] 11.5 mg/mg 10-20 [facility] Basic metabolic 1998 panelon 02-20-2025 Anion gap [Moles/Vol] 12 mmol/L 3 - 13 mmol/L [facility] Calcium [Mass/Vol] 9.6 mg/dL 8.4 - 10. 2 mg/dL [facility] Chloride [Moles/Vol] 92 mmol/L Low 98 - 10 7 mmol/L [facility] CO2 [Moles/Vol] 29 mmol/L 22 - 29 mmol/L [facility] Creatinine [Mass/Vol] 2.57 mg/dL High 0.72 - 1.25 mg/dL [facility] GFR/1.73 sq M.predicted (S/P/Bld) [Vol rate/Area] 27.9 mL/min Low - PINF [facility] Glucose [Mass/Vol] 80 mg/dL 74 - 100 mg/dL [facility] Interpretation and review of laboratory results Abnormal [facility] Potassium [Moles/Vol] 3.1 mmol/L Low 3.5 - 5.1 mmol/L [facility] Sodium [Moles/Vol] 133 mmol/L Low 136 - 145 mmol/L [facility] Urea nitrogen [Mass/Vol] 29 mg/dL High 9 - 23 mg/d L [facility] Basophil percentageOrdered B y: Kayley Melendrez on 02-20-2025 Basophils/100 WBC (Bld) 1.4 % High 0-1 [facility] Bilirubin, totalOrdered By: Kayley Melendrez on 02-20-2025 Bilirubin [Mass/Vol] 0.64 mg/dL 0.00-1.30 [facility] CBC (HEMOGRAM)on 02-20-2025 Erythrocyte distribution width (RBC) [Ratio] 18.8 % High 11.5-15.0 [facility] Comment on above: Performed By: #### L AB294 ####Filing Clerk: FENG CONSTANTINO ([phone])[facility] ([facility])[address] [place] [address] Hematocrit (Bld) [Volume fraction] 26.8 % Low 40.0-52.0 [facility] Comment on above: Performed By: #### L AB294 ####Filing Clerk: FENG CONSTANTINO ([phone])[facility] ([facility])[address] Hemoglobin (Bld) [Mass/Vol] 8.7 g/dL Low 13.0-18.0 [facility] Comment on above: Performed By: #### L AB294 ####Filing Clerk: FENG CONSTANTINO ([phone])[facility] ([facility])[address] MCH (RBC) [Entitic mass] 28.7 pg Normal 26.0-34.0 [facility] Comment on above: Performed By: #### L AB294 ####Filing Clerk: FENG CONSTANTINO ([phone])[facility] [place] ([facility])[address] MCHC 32.5 % Normal 30.5-36.0 [facility] Comment on above: Performed By: #### L AB294 ####Filing Clerk: FENG CONSTANTINO ([phone])[facility] [place] ([facility])[address] MCV (RBC) [Entitic vol] 88.4 fL Normal 77.0-99.0 [facility] Comment on above: Performed By: #### L AB294 ####Filing Clerk: FENG CONSTANTINO ([phone])[facility] [place] ([facility])[address] Platelet mean volume (Bld) [Entitic vol] 8.5 fL Low 9.0-12.7 [facility] Comment on above: Performed By: #### L AB294 ####Filing Clerk: FENG CONSTANTINO ([phone])[facility] [place] ([facility])[address] Platelets (Bld) [#/Vol] 312 10*3/uL Normal 140-440 [facility] Comment on above: Performed By: #### L AB294 ####Filing Clerk: FENG CONSTANTINO ([phone])[facility] [place] ([facility])[address] [place] [address] [place] RBC (Bld) [#/Vol] 3.03 10*6/uL Low 4.40-5.90 [facility] Comment on above: Performed By: #### L AB294 ####Filing Clerk: FENG CONSTANTINO ([phone])[facility] [place] ([facility])[address] [place] [address] [place] WBC (Bld) [#/Vol] 9.4 10*3/uL Normal 3.6-10.7 [facility] Comment on above: Performed By: #### L AB294 ####Filing Clerk: FENG CONSTANTINO ([phone])[facility] ([facility])[address] [place] [id number] [place] [address] CBC W/Diff, Automatedon 05-2 Absolute Lymph 1.13 X10 3/uL Normal 0.83-4.51 [facility] Comment on above: Order Comment: 413.2 Performed By: #### L 300.3900 #### [facility] [address] [place], [address] Absolute Neut 4.6 X10 3/uL Normal 2.0-7.7 [facility] Comment on above: Order Comment: 413.2 Performed By: #### L 300.3900 #### [facility] [address] [place], [address] Basophils/100 WBC (Bld) 1.4 % High 0-1 [facility] Comment on above: Order Comment: 413.2 Performed By: #### L 300.3900 #### [facility] [address] [place], [address] Eosinophils/100 WBC (Bld) 2.5 % Normal 0-5 [facility] Comment on above: Order Comment: 413.2 Performed By: #### L 300.3900 #### [facility] [address] [place], [address] Erythrocyte distribution width (RBC) [Ratio] 19.4 % High 11.6-14.6 [facility] Comment on above: Order Comment: 413.2 Performed By: #### L 300.3900 #### [facility] [address] [place], [address] Hematocrit (Bld) [Volume fraction] 25.9 % Low 40-54 [facility] Comment on above: Order Comment: 413.2 Performed By: #### L 300.3900 #### [facility] [address] [place], [address] Hemoglobin (Bld) [Mass/Vol] 8.5 g/dL Low 13.0-16.5 [facility] Comment on above: Order Comment: 413.2 Performed By: #### L 300.3900 #### [facility] [address] [place], [address] IG% 0.400 Normal 0.0-0.9 [facility] Comment on above: Order Comment: 413.2 Result Comment: IG% - Immature Granulocytes (promyelocytes, myelocytes and metamyelocytes) > 1% indicates that a LEFT SHIFT is Present. Performed By: #### L 300.3900 #### [facility] [address] [place], [address] Lymphocytes/100 WBC (Bld) 16.4 % Low 19-41 [facility] Comment on above: Order Comment: 413.2 Performed By: #### L 300.3900 #### [facility] [address] [place], [address] MCH (RBC) [Entitic mass] 30.1 pg Normal 27.0-32.0 [facility] Comment on above: Order Comment: 413.2 Performed By: #### L 300.3900 #### [facility] [address] [place], [address] MCHC (RBC) [Mass/Vol] 32.8 g/dL Normal 32-36 [facility] Comment on above: Order Comment: 413.2 Performed By: #### L 300.3900 #### [facility] [address] [place], [address] MCV (RBC) [Entitic vol] 91.8 fL Normal 80-94 [facility] Comment on above: Order Comment: 413.2 Performed By: #### L 300.3900 #### [facility] [address] [place], [address] Monocytes/100 WBC (Bld) 12.0 % High 0-10 [facility] Comment on above: Order Comment: 413.2 Performed By: #### L 300.3900 #### [facility] [address] [place], [address] Neutrophils/100 WBC (Bld) 67.3 % Normal 47-70 [facility] Comment on above: Order Comment: 413.2 Performed By: #### L 300.3900 #### [facility] [address] [place], [address] Nucleated RBC (Bld) [#/Vol] 0 10*3/uL Normal 0-5 [facility] Comment on above: Order Comment: 413.2 Performed By: #### L 300.3900 #### [facility] [address] [place], [address] Platelet mean volume (Bld) [Entitic vol] 9.0 fL Normal 6.2-12.0 [facility] Comment on above: Order Comment: 413.2 Performed By: #### L 300.3900 #### [facility] [address] [place], [address] Platelets (Bld) [#/Vol] 322 10*3/uL Normal 150-450 [facility] Comment on above: Order Comment: 413.2 Performed By: #### L 300.3900 #### [facility] [address] [place], [address] RBC (Bld) [#/Vol] 2.82 10*6/uL Low 4.6-6.2 [facility] Comment on above: Order Comment: 413.2 Performed By: #### L 300.3900 #### [facility] [address] [place], [address] RDW SD 63.5 fl High 35.1-43.9 [facility] Comment on above: Order Comment: 413.2 Performed By: #### L 300.3900 #### [facility] [address] [place], [place], [address] WBC (Bld) [#/Vol] 6.9 10*3/uL Normal 4.4-11.0 [facility] Comment on above: Order Comment: 413.2 Performed By: #### L 300.3900 #### [facility] [address] [place], [place], [id number] CBC panel Auto (Bld)on 02-20 Erythrocyte distribution width (RBC) [Ratio] 18.8 % High 11.5 - 15.0 % [facility] Hematocrit (Bld) [Volume fraction] 26.8 % Low 40.0 - 52.0 % [facility] Hemoglobin (Bld) [Mass/Vol] 8.7 g/dL Low 13.0 - 18.0 g/dL [facility] Interpretation and review of laboratory results Abnormal [facility] MCH (RBC) [Entitic mass] 28.7 pg 26. 0 - 34.0 pg [facility] MCHC (RBC) [Mass/Vol] 32.5 % 30.5 - 36.0 % [facility] MCV (RBC) [Entitic vol] 88.4 fL 77.0 - 99.0 fL [facility] Platelet mean volume (Bld) [Entitic vol] 8.5 fL Low 9.0 - 12.7 fL [facility] Platelets (Bld) [#/Vol] 312 10*3/uL 140 - 440 10*3/uL [facility] RBC (Bld) [#/Vol] 3.03 10*6/uL Low 4.40 - 5.9 0 10*6/uL [facility] WBC (Bld) [#/Vol] 9.4 10*3/uL 3.6 - 10.7 10*3/uL [facility] CT CHEST ANGIOGRAM W AND/OR WO IV CONTRASTon 02-20-2025 CT CHEST ANGIOGRAM W AND/OR WO IV CONTRAST Normal [facility] CTA Chest vessels WO and W c ontrast Dimitrios 02-20-2025 [facility] Radiology Study observation (narrative) [facility] CTA Chest vessels WO and W c ontrast IVOrdered By: Justo Milan on 02-20-2025 [facility] [employer] Work Phone: Carbon dioxide, total [Moles /volume] in Central venous bloodOrdered By: Kayley Melendrez on 02-20-2025 CO2 [Moles/Vol] 30.1 mmol/L 21.0-32.0 [facility] Chloride assayOrdered By: Carmen Melendrez on 02-20-2025 Chloride [Moles/Vol] 91 mmol/L Low 98-108 [facility] Comprehensive Metabolic Prof ilon 02-20-2025 Albumin [Mass/Vol] 3.0 g/dL Low 3.5-5.0 [facility] Comment on above: Order Comment: 413.2 Performed By: #### L 300.3900 #### [facility] [address] [place], [address] Albumin/Globulin [Mass ratio] 0.8 {ratio} Low 0.9-2.4 [facility] Comment on above: Order Comment: 413.2 Performed By: #### L 300.3900 #### [facility] [address] [place], [address] ALK PHOS 133 U/L High 40-129 [facility] Comment on above: Order Comment: 413.2 Performed By: #### L 300.3900 #### [facility] [address] [place], [address] ALT [Catalytic activity/Vol] 13 U/L Normal <=46 [facility] Comment on above: Order Comment: 413.2 Performed By: #### L 300.3900 #### [facility] [address] [place], [address] AST [Catalytic activity/Vol] 32 U/L Normal <=37 [facility] Comment on above: Order Comment: 413.2 Performed By: #### L 300.3900 #### [facility] [address] [place], [address] Bilirubin [Mass/Vol] 0.64 mg/dL Normal 0.00-1.30 [facility] Comment on above: Order Comment: 413.2 Performed By: #### L 300.3900 #### [facility] [address] [place], [address] BUN/CRE 11.5 RATIO Normal 10-20 [facility] Comment on above: Order Comment: 413.2 Performed By: #### L 300.3900 #### [facility] [address] [place], [address] Calcium [Mass/Vol] 9.8 mg/dL Normal 7.6-11.0 [facility] Comment on above: Order Comment: 413.2 Performed By: #### L 300.3900 #### [facility] [address] [place], [address] Chloride [Moles/Vol] 91 mmol/L Low 98-108 [facility] Comment on above: Order Comment: 413.2 Performed By: #### L 300.3900 #### [facility] [address] [place], [address] CO2 [Moles/Vol] 30.1 mmol/L Normal 21.0-32.0 [facility] Comment on above: Order Comment: 413.2 Performed By: #### L 300.3900 #### [facility] [address] [place], [address] Creatinine [Mass/Vol] 3.87 mg/dL High 0.70-1.20 [facility] Comment on above: Order Comment: 413.2 Performed By: #### L 300.3900 #### [facility] [address] [place], [address] GAP 12 Normal 5-15 [facility] Comment on above: Order Comment: 413.2 Performed By: #### L 300.3900 #### [facility] [address] [place], [address] GFR/1.73 sq M.predicted among non-blacks MDRD (S/P/Bld) [Vol rate/Area] 17 mL/min/{1.73_m2} Low >60 [facility] Comment on above: Order Comment: 413.2 Result Comment: mL/m in/1.73m2 CKD-EPI Creatinine Equation (2020) Performed By: #### L 300.3900 #### [facility] [address] [place], [address] Globulin (S) [Mass/Vol] 4.0 g/dL Normal 2.2-4.2 [facility] Comment on above: Order Comment: 413.2 Performed By: #### L 300.3900 #### [facility] [address] [place], [address] Glucose [Mass/Vol] 78 mg/dL Normal 70-99 [facility] Comment on above: Order Comment: 413.2 Performed By: #### L 300.3900 #### [facility] [address] [place], [address] Potassium [Moles/Vol] 3.0 mmol/L Low 3.3-5.1 [facility] Comment on above: Order Comment: 413.2 Performed By: #### L 300.3900 #### [facility] [address] [place], [address] Sodium [Moles/Vol] 134 mmol/L Normal 133-145 [facility] Comment on above: Order Comment: 413.2 Performed By: #### L 300.3900 #### [facility] [address] [place], [address] T PROT 6.9 g/dL Normal 5.9-8.4 [facility] Comment on above: Order Comment: 413.2 Performed By: #### L 300.3900 #### [facility] [address] [place], [address] Urea nitrogen [Mass/Vol] 44 mg/dL High 4-19 [facility] Comment on above: Order Comment: 413.2 Performed By: #### L 300.3900 #### [facility] [address] [place], [address] ED Nursing Noteon 02-20-2025 ED Nursing Note Called report to 3W nurse who will be taking over pt care. Normal [facility] ED Nursing Note Attempted to reposition pt and have him sit up but pt states "he feels fine and does not want to sit up"despite coughing up blood. Normal [facility] ED Nursing Note Pt placed on 2L NC due to O2 saturation of 90%. Currently 97 on 2L Normal [facility] ED Nursing Note Suction turned on at this time for pt due to increased coughing up of blood Normal [facility] ED Nursing Note Normal [facility] ED Nursing Note Normal [facility] ED Provider Noteon ED Provider Note Normal [facility] Eosinophil percentageOrdered By: Kayley Melendrez on 02-20-2025 Eosinophils/100 WBC (Bld) 2.5 % 0-5 [facility] Erythrocyte distribution wid th ratioOrdered By: Kayley Melendrez on 02-20-2025 Erythrocyte distribution width (RBC) [Ratio] 19.4 % High 11.6-14.6 [facility] Erythrocyte distribution wid th standard deviationOrdered By: Kayley Melendrez on 02-20-2025 Erythrocyte distribution width (RBC) [Ratio] 63.5 fl High 35.1-43.9 [facility] Glomerular filtration rate ( GFR) estimation/1.73 sq m using serum, plasma, or whole bOrdered By: Kayley Melendrez on 02-20-2025 GFR/1.73 sq M.predicted among non-blacks MDRD (S/P/Bld) [Vol rate/Area] 17 mL/min/{1.73_m2} Low >60 [facility] Comment on above: mL/min/1.73m2 CKD-EP I Creatinine Equation (2020) Hematocrit Auto (Bld) [Volum e fraction]Ordered By: Kayley Melendrez on 02-20-2025 Hematocrit (Bld) [Volume fraction] 25.9 % Low 40-54 [facility] Hemoglobin measurementOrdere d By: Kayley Melendrez on 02-20-2025 Hemoglobin (Bld) [Mass/Vol] 8.5 g/dL Low 13.0-16.5 [facility] Immature granulocytes/100 WB C Auto (Bld)Ordered By: Kayley Melendrez on 02-20-2025 Immature granulocytes/100 WBC (Bld) 0.400 % 0.0-0.9 [facility] Comment on above: IG% - Immature Granu locytes (promyelocytes, myelocytes and metamyelocytes) > 1% indicates that a LEFT SHIFT is Present. International normalized rat io (INR) calculationOrdered By: Kayley Melendrez on 02-20-2025 INR Coag (Bld) [Relative time] 1.4 {INR} [facility] - Chemistry and C hemistry - challengeOrdered By: Kayley Melendrez on 02-20-2025 AST [Catalytic activity/Vol] 32 U/L <38 [facility] - Coagulationon 0 02-20-2025 PT Coag (Bld) [Time] 14.7 s High 9.0 - 12.0 s [facility] MCV (mean corpuscular volume ) determinationOrdered By: Kayley Melendrez on 02-20-2025 MCV (RBC) [Entitic vol] 91.8 fL 80-94 [facility] Mean corpuscular hemoglobin (MCH) determinationOrdered By: Kayley Melendrez on 02-20-2025 MCH (RBC) [Entitic mass] 30.1 pg 27.0-32.0 [facility] Mean corpuscular hemoglobin concentration (MCHC) determinationOrdered By: Kayley Melendrez on 02-20-2025 MCHC (RBC) [Mass/Vol] 32.8 g/dL 32-36 [facility] Mean platelet volume determi nationOrdered By: Kayley Melendrez on 02-20-2025 Platelet mean volume (Bld) [Entitic vol] 9.0 fL 6.2-12.0 [facility] Monocyte percentageOrdered B y: Kayley Melendrez on 02-20-2025 Monocytes/100 WBC (Bld) 12.0 % High 0-10 [facility] Neutrophil percentageOrdered By: [facility] on 02-20-2025 Neutrophils/100 WBC (Bld) 67.3 % 47-70 [facility] No Panel Informationon 02-20 [facility] Nucleated red blood cell per centageOrdered By: Kayley Melendrez on 02-20-2025 Nucleated RBC/100 WBC (Bld) [Ratio] 0 % 0-5 [facility] Nursing Noteon 02-20-2025 Nursing Note Pt arrived on floor via [employer] [facility] Normal [facility] PROTHROMBIN TIMEon INR Coag (PPP) [Relative time] 1.4 {INR} High 0.9-1.1 [facility] Comment on above: Result Comment: Vaughn [...] Myocardial Infarction Performed By: #### L [id number], [id number] ####Filing Clerk: FENG CONSTANTINO ([phone])[facility] ([facility])[address] [place] [address] PT Coag (PPP) [Time] 14.7 s High 9.0-12.0 [facility] Comment on above: Performed By: #### L [id number], [id number] ####Filing Clerk: FENG CONSTANTINO ([phone])[facility])[address] [place] [address] PT Coag (Bld) [Time]on 02-20 INR Coag (PPP) [Relative time] 1.4 {INR} High 0.9 - 1.1 [facility] Interpretation and review of laboratory results Abnormal [facility] Platelet countOrdered By: Carmen Melendrez on 02-20-2025 Platelets (Bld) [#/Vol] 322 10*3/uL 150-450 [facility] Potassium measurement (mass/ volume)Ordered By: Kayley Melendrez on 02-20-2025 Potassium (Unsp spec) [Mass/Vol] 3.0 mmol/L Low 3.3-5.1 [facility] Prothrombin Time w/INRon INR Coag (PPP) [Relative time] 1.4 {INR} Normal [facility] Comment on above: Order Comment: 413.2 Performed By: #### L 300.3900 #### [facility] [address] [place], [place], [id number] PT Coag (PPP) [Time] 17.5 s High 11.7-14.9 [facility] Comment on above: Order Comment: 413.2 Performed By: #### L 300.3900 #### [facility] [address] [place], [place], [id number] Prothrombin timeOrdered By: Kayley Melendrez on 02-20-2025 PT Coag (PPP) [Time] 17.5 s High 11.7-14.9 [facility] RBC Auto (Bld) [#/Vol]Ordere d By: Kayley Melendrez on 02-20-2025 RBC (Bld) [#/Vol] 2.82 10*6/uL Low 4.6-6.2 [facility] Serum creatinine measurement (mass/volume)Ordered By: Kayley Melendrez on 02-20-2025 Creatinine [Mass/Vol] 3.87 mg/dL High 0.70-1.20 [facility] Serum globulin measurementOr dered By: Kayley Melendrez on 02-20-2025 Globulin (S) [Mass/Vol] 4.0 g/dL 2.2-4.2 [facility] Serum glucose measurement (m ass/volume)Ordered By: Kayley Melendrez on 02-20-2025 Glucose [Mass/Vol] 78 mg/dL 70-99 [facility] Serum or plasma alanine mayorga otransferase (ALT) measurementOrdered By: Kayley Melendrez on 02-20-2025 ALT [Catalytic activity/Vol] 13 U/L <47 [facility] Serum or plasma albumin audrey urement (mass/volume)Ordered By: Kayley Melendrez on 02-20-2025 Albumin [Mass/Vol] 3.0 g/dL Low 3.5-5.0 [facility] Serum or plasma albumin/glob ulin mass ratioOrdered By: Kayley Melendrez on 02-20-2025 Albumin/Globulin [Mass ratio] 0.8 {ratio} Low 0.9-2.4 [facility] Serum or plasma alkaline jacob sphatase measurementOrdered By: Kayley Melendrez on 02-20-2025 ALP [Catalytic activity/Vol] 133 U/L High 40-129 [facility] Serum or plasma calcium audrey urement (mass/volume)Ordered By: Kayley Melendrez on 02-20-2025 Calcium [Mass/Vol] 9.8 mg/dL 7.6-11.0 [facility] Serum or plasma urea nitroge n measurement (mass/volume)Ordered By: Kayley Melendrez on 02-20-2025 Urea nitrogen [Mass/Vol] 44 mg/dL High 4-19 [facility] Sodium levelOrdered By: Omega Melendrez on 02-20-2025 Sodium [Moles/Vol] 134 mmol/L 133-145 [facility] Total proteinOrdered By: Lexis Melendrez on 02-20-2025 Protein [Mass/Vol] 6.9 g/dL 5.9-8.4 [facility] White blood cell (WBC) count Ordered By: Kayley Melendrez on 02-20-2025 WBC (Bld) [#/Vol] 6.9 10*3/uL 4.4-11.0 [facility] aPTT Coag (Bld) [Time]on aPTT Coag (PPP) [Time] 26.2 s 20.0 - 30.5 s [facility] Interpretation and review of laboratory results Normal [facility] International normalized rat io (INR) calculationOrdered By: Kayley Melendrez on 02-15-2025 INR Coag (Bld) [Relative time] 1.3 {INR} [facility] Prothrombin Time w/INRon INR Coag (PPP) [Relative time] 1.3 {INR} Normal [facility] Comment on above: Order Comment: 413.2 Performed By: #### L 300.3900 #### [facility] [address] [place], [place], [id number] (152) PT Coag (PPP) [Time] 16.6 s High 11.7-14.9 [facility] Comment on above: Order Comment: 413.2 Performed By: #### L 300.3900 #### [facility] [address] [place], [place], [id number] (185) Prothrombin timeOrdered By: Kayley Melendrez on 02-15-2025 PT Coag (PPP) [Time] 16.6 s High 11.7-14.9 [facility] Nursing Noteon 02-14-2025 Nursing Note Normal [facility] Progress Noteon 02-14-2025 Progress Note Patient completed 6 week course of Amp-Sulbactam on 02/13/25 for sacral osteomyelitis. Tunneled line has since been removed. Continue to monitor off antibiotics at this time. Continue wound care. Normal [facility] Progress Note Normal [facility] International normalized rat io (INR) measurement by fingerstickOrdered By: Kayley Melendrez on 02-13-2025 INR Coag (BldC) [Relative time] 1.7 [facility] Comment on above: Critical Value > 4.0 Protime w/INR Fingerstickon 02-13-2025 INR Coag (PPP) [Relative time] 1.7 {INR} Normal [facility] Comment on above: Result Comment: Crit ical Value > 4.0 Performed By: #### L 9200.0000 #### [facility] [address] [place], [place], [id number] Protime Coagsen 19.1 SEC High 11.7-14.9 [facility] Comment on above: Performed By: #### L 9200.0000 #### [facility] [address] [place], [place], [id number] Whole blood prothrombin time Ordered By: Kayley Melendrez on 02-13-2025 PT Coag (Bld) [Time] 19.1 s High 11.7-14.9 [facility] Absolute lymphocyte countOrd ered By: Kayley Melendrez on 02-12-2025 Lymphocytes Auto (Unsp spec) [#/Vol] 1.29 10*3/uL 0.83-4.51 [facility] Absolute neutrophil countOrd ered By: Kayley Melendrez on 02-12-2025 Neutrophils (Bld) [#/Vol] 4.7 10*3/uL 2.0-7.7 [facility] Anion gap in Serum or Plasma Ordered By: Kayley Melendrez on 02-12-2025 Anion gap [Moles/Vol] 12 mmol/L 02-08 [facility] Automated lymphocyte count a s percentage of total leukocytesOrdered By: Kayley Melendrez on 02-12-2025 Lymphocytes/100 WBC Auto (Unsp spec) 17.7 % Low [facility] BUN/creatinine ratioOrdered By: Kayley Melendrez on 02-12-2025 Urea nitrogen/Creatinine [Mass ratio] 10.3 mg/mg - [facility] Basophil percentageOrdered B y: Kayley Melendrez on 02-12-2025 Basophils/100 WBC (Bld) 1.1 % High 0-1 [facility] Bilirubin, totalOrdered By: Kayley Melendrez on 02-12-2025 Bilirubin [Mass/Vol] 0.69 mg/dL 0.00-1.30 [facility] CBC W/Diff, Automatedon 01-25 Absolute Lymph 1.29 X10 3/uL Normal 0.83-4.51 [facility] Comment on above: Performed By: #### L 100.0100, L300.3900, L500.4050 #### [facility] [address] [place], [address] Absolute Neut 4.7 X10 3/uL Normal 2.0-7.7 [facility] Comment on above: Performed By: #### L 100.0100, L300.3900, L500.4050 #### [facility] [address] [place], [address] Basophils/100 WBC (Bld) 1.1 % High 0-1 [facility] Comment on above: Performed By: #### L 100.0100, L300.3900, L500.4050 #### [facility] [address] [place], [address] Eosinophils/100 WBC (Bld) 4.7 % Normal 0-5 [facility] Comment on above: Performed By: #### L 100.0100, L300.3900, L500.4050 #### [facility] [address] [place], [address] Erythrocyte distribution width (RBC) [Ratio] 18.3 % High 11.6-14.6 [facility] Comment on above: Performed By: #### L 100.0100, L300.3900, L500.4050 #### [facility] [address] [place], [address] Hematocrit (Bld) [Volume fraction] 24.6 % Low 40-54 [facility] Comment on above: Performed By: #### L 100.0100, L300.3900, L500.4050 #### [facility] [address] [place], [address] Hemoglobin (Bld) [Mass/Vol] 8.0 g/dL Low 13.0-16.5 [facility] Comment on above: Performed By: #### L 100.0100, L300.3900, L500.4050 #### [facility] [address] [place], [address] IG% 0.500 Normal 0.0-0.9 [facility] Comment on above: Result Comment: IG% - Immature Granulocytes (promyelocytes, myelocytes and metamyelocytes) > 1% indicates that a LEFT SHIFT is Present. Performed By: #### L 100.0100, L300.3900, L500.4050 #### [facility] [address] [place], [address] Lymphocytes/100 WBC (Bld) 17.7 % Low 19-41 [facility] Comment on above: Performed By: #### L 100.0100, L300.3900, L500.4050 #### [facility] [address] [place], [address] MCH (RBC) [Entitic mass] 29.3 pg Normal 27.0-32.0 [facility] Comment on above: Performed By: #### L 100.0100, L300.3900, L500.4050 #### [facility] [address] [place], [address] MCHC (RBC) [Mass/Vol] 32.5 g/dL Normal 32-36 [facility] Comment on above: Performed By: #### L 100.0100, L300.3900, L500.4050 #### [facility] [address] [place], [address] MCV (RBC) [Entitic vol] 90.1 fL Normal 80-94 [facility] Comment on above: Performed By: #### L 100.0100, L300.3900, L500.4050 #### [facility] [address] [place], [address] Monocytes/100 WBC (Bld) 11.9 % High 0-10 [facility] Comment on above: Performed By: #### L 100.0100, L300.3900, L500.4050 #### [facility] [address] [place], [address] Neutrophils/100 WBC (Bld) 64.1 % Normal 47-70 [facility] Comment on above: Performed By: #### L 100.0100, L300.3900, L500.4050 #### [facility] [address] [place], [address] Nucleated RBC (Bld) [#/Vol] 0 10*3/uL Normal 0-5 [facility] Comment on above: Performed By: #### L 100.0100, L300.3900, L500.4050 #### [facility] [address] [place], [address] Platelet mean volume (Bld) [Entitic vol] 9.2 fL Normal 6.2-12.0 [facility] Comment on above: Performed By: #### L 100.0100, L300.3900, L500.4050 #### [facility] [address] [place], [address] Platelets (Bld) [#/Vol] 294 10*3/uL Normal 150-450 [facility] Comment on above: Performed By: #### L 100.0100, L300.3900, L500.4050 #### [facility] [address] [place], [address] RBC (Bld) [#/Vol] 2.73 10*6/uL Low 4.6-6.2 [facility] Comment on above: Performed By: #### L 100.0100, L300.3900, L500.4050 #### [facility] [address] [place], [address] RDW SD 59.4 fl High 35.1-43.9 [facility] Comment on above: Performed By: #### L 100.0100, L300.3900, [id number] #### [facility] [address] [place], [address] WBC (Bld) [#/Vol] 7.3 10*3/uL Normal 4.4-11.0 [facility] Comment on above: Performed By: #### L 100.0100, L300.3900, L500.4050 #### [facility] [address] [place], [address] Carbon dioxide, total [Moles /volume] in Central venous bloodOrdered By: Kayley Melendrez on 02-12-2025 CO2 [Moles/Vol] 28.4 mmol/L 21.0-32.0 [facility] Chloride assayOrdered By: Carmen Melendrez on 02-12-2025 Chloride [Moles/Vol] 91 mmol/L Low 98-108 [facility] Comprehensive Metabolic Prof ilon 02-12-2025 Albumin [Mass/Vol] 2.9 g/dL Low 3.5-5.0 [facility] Comment on above: Performed By: #### L 100.0100, L300.3900, L500.4050 #### [facility] [address] [place], [address] Albumin/Globulin [Mass ratio] 0.7 {ratio} Low 0.9-2.4 [facility] Comment on above: Performed By: #### L 100.0100, L300.3900, L500.4050 #### [facility] [address] [place], [address] ALK PHOS 177 U/L High 40-129 [facility] Comment on above: Performed By: #### L 100.0100, L300.3900, L500.4050 #### [facility] [address] [place], [address] ALT [Catalytic activity/Vol] 9 U/L Normal <=46 [facility] Comment on above: Performed By: #### L 100.0100, L300.3900, L500.4050 #### [facility] [address] [place], [address] AST [Catalytic activity/Vol] 34 U/L Normal <=37 [facility] Comment on above: Performed By: #### L 100.0100, L300.3900, L500.4050 #### [facility] [address] [place], [address] Bilirubin [Mass/Vol] 0.69 mg/dL Normal 0.00-1.30 [facility] Comment on above: Performed By: #### L 100.0100, L300.3900, [id number] #### [facility] [address] [place], [address] BUN/CRE 10.3 RATIO Normal 10-20 [facility] Comment on above: Performed By: #### L 100.0100, L300.3900, L500.4050 #### [facility] [address] [place], [address] Calcium [Mass/Vol] 9.9 mg/dL Normal 7.6-11.0 [facility] Comment on above: Performed By: #### L 100.0100, L300.3900, L500.4050 #### [facility] [address] [place], [address] Chloride [Moles/Vol] 91 mmol/L Low 98-108 [facility] Comment on above: Performed By: #### L 100.0100, L300.3900, L500.4050 #### [facility] [address] [place], [address] CO2 [Moles/Vol] 28.4 mmol/L Normal 21.0-32.0 [facility] Comment on above: Performed By: #### L 100.0100, L300.3900, L500.4050 #### [facility] [address] [place], [address] Creatinine [Mass/Vol] 4.17 mg/dL High 0.70-1.20 [facility] Comment on above: Performed By: #### L 100.0100, L300.3900, L500.4050 #### [facility] [address] [place], [address] GAP 12 Normal 5-15 [facility] Comment on above: Performed By: #### L 100.0100, L300.3900, L500.4050 #### [facility] [address] [place], [address] GFR/1.73 sq M.predicted among non-blacks MDRD (S/P/Bld) [Vol rate/Area] 16 mL/min/{1.73_m2} Low >60 [facility] Comment on above: Result Comment: mL/m in/1.73m2 CKD-EPI Creatinine Equation (2020) Performed By: #### L 100.0100, L300.3900, L500.4050 #### [facility] [address] [place], [address] Globulin (S) [Mass/Vol] 4.2 g/dL Normal 2.2-4.2 [facility] Comment on above: Performed By: #### L 100.0100, L300.3900, L500.4050 #### [facility] [address] [place], [address] Glucose [Mass/Vol] 77 mg/dL Normal 70-99 [facility] Comment on above: Performed By: #### L 100.0100, L300.3900, L500.4050 #### [facility] [address] [place], [address] Potassium [Moles/Vol] 3.2 mmol/L Low 3.3-5.1 [facility] Comment on above: Performed By: #### L 100.0100, L300.3900, L500.4050 #### [facility] [address] [place], [address] Sodium [Moles/Vol] 131 mmol/L Low 133-145 [facility] Comment on above: Performed By: #### L 100.0100, L300.3900, L500.4050 #### [facility] [address] [place], [address] T PROT 7.1 g/dL Normal 5.9-8.4 [facility] Comment on above: Performed By: #### L 100.0100, L300.3900, L500.4050 #### [facility] [address] [place], [address] Urea nitrogen [Mass/Vol] 43 mg/dL High 4-19 [facility] Comment on above: Performed By: #### L 100.0100, L300.3900, L500.4050 #### [facility] [address] [place], [address] Eosinophil percentageOrdered By: Kayley Melendrez on 02-12-2025 Eosinophils/100 WBC (Bld) 4.7 % 0-5 [facility] Erythrocyte distribution wid th ratioOrdered By: Kayley Melendrez on 02-12-2025 Erythrocyte distribution width (RBC) [Ratio] 18.3 % High 11.6-14.6 [facility] Erythrocyte distribution wid th standard deviationOrdered By: Kayley Melendrez on 02-12-2025 Erythrocyte distribution width (RBC) [Ratio] 59.4 fl High 35.1-43.9 [facility] Glomerular filtration rate ( GFR) estimation/1.73 sq m using serum, plasma, or whole bOrdered By: Kayley Melendrez on 02-12-2025 GFR/1.73 sq M.predicted among non-blacks MDRD (S/P/Bld) [Vol rate/Area] 16 mL/min/{1.73_m2} Low >60 [facility] Comment on above: mL/min/1.73m2 CKD-EP I Creatinine Equation (2020) Hematocrit Auto (Bld) [Volum e fraction]Ordered By: Kayley Melendrez on 02-12-2025 Hematocrit (Bld) [Volume fraction] 24.6 % Low 40-54 [facility] Hemoglobin measurementOrdere d By: Kayley Melendrez on 02-12-2025 Hemoglobin (Bld) [Mass/Vol] 8.0 g/dL Low 13.0-16.5 [facility] Immature granulocytes/100 WB C Auto (Bld)Ordered By: Kayley Melendrez on 02-12-2025 Immature granulocytes/100 WBC (Bld) 0.500 % 0.0-0.9 [facility] Comment on above: IG% - Immature Granu locytes (promyelocytes, myelocytes and metamyelocytes) > 1% indicates that a LEFT SHIFT is Present. International normalized rat io (INR) calculationOrdered By: Kayley Melendrez on 02-12-2025 INR Coag (Bld) [Relative time] 1.5 {INR} [facility] - Chemistry and C hemistry - challengeOrdered By: Kayley Melendrez on 02-12-2025 AST [Catalytic activity/Vol] 34 U/L <38 [facility] MCV (mean corpuscular volume ) determinationOrdered By: Kayley Melendrez on 02-12-2025 MCV (RBC) [Entitic vol] 90.1 fL 80-94 [facility] Mean corpuscular hemoglobin (MCH) determinationOrdered By: Kayley Melendrez on 02-12-2025 MCH (RBC) [Entitic mass] 29.3 pg 27.0-32.0 [facility] Mean corpuscular hemoglobin concentration (MCHC) determinationOrdered By: Kayley Melendrez on 02-12-2025 MCHC (RBC) [Mass/Vol] 32.5 g/dL 32-36 [facility] Mean platelet volume determi nationOrdered By: Kayley Melendrez on 02-12-2025 Platelet mean volume (Bld) [Entitic vol] 9.2 fL 6.2-12.0 [facility] Monocyte percentageOrdered B y: Kayley Melendrez on 02-12-2025 Monocytes/100 WBC (Bld) 11.9 % High 0-10 [facility] Neutrophil percentageOrdered By: Kayley Melendrez on 02-12-2025 Neutrophils/100 WBC (Bld) 64.1 % 47-70 [facility] Nucleated red blood cell per centageOrdered By: Kayley Melendrez on 02-12-2025 Nucleated RBC/100 WBC (Bld) [Ratio] 0 % 0-5 [facility] Platelet countOrdered By: Carmen Melendrez on 02-12-2025 Platelets (Bld) [#/Vol] 294 10*3/uL 150-450 [facility] Potassium measurement (mass/ volume)Ordered By: Kayley Melendrez on 02-12-2025 Potassium (Unsp spec) [Mass/Vol] 3.2 mmol/L Low 3.3-5.1 [facility] Prothrombin Time w/INRon INR Coag (PPP) [Relative time] 1.5 {INR} Normal [facility] Comment on above: Performed By: #### L 100.0100, L300.3900, L500.4050 #### [facility] [address] [place], [place] [address] [place], [address] PT Coag (PPP) [Time] 17.9 s High 11.7-14.9 [facility] Comment on above: Performed By: #### L 100.0100, L300.3900, L500.4050 #### [facility] [address] [place], [address] Prothrombin timeOrdered By: Kayley Melendrez on 02-12-2025 PT Coag (PPP) [Time] 17.9 s High 11.7-14.9 [facility] RBC Auto (Bld) [#/Vol]Ordere d By: Kayley Melendrez on 02-12-2025 RBC (Bld) [#/Vol] 2.73 10*6/uL Low 4.6-6.2 [facility] Serum creatinine measurement (mass/volume)Ordered By: Kayley Melendrez on 02-12-2025 Creatinine [Mass/Vol] 4.17 mg/dL High 0.70-1.20 [facility] Serum globulin measurementOr dered By: Kayley Melendrez on 02-12-2025 Globulin (S) [Mass/Vol] 4.2 g/dL 2.2-4.2 [facility] Serum glucose measurement (m ass/volume)Ordered By: Kayley Melendrez on 02-12-2025 Glucose [Mass/Vol] 77 mg/dL 70-99 [facility] Serum or plasma alanine mayorga otransferase (ALT) measurementOrdered By: Kayley Melendrez on 02-12-2025 ALT [Catalytic activity/Vol] 9 U/L <47 [facility] Serum or plasma albumin audrey urement (mass/volume)Ordered By: Kayley Melendrez on 02-12-2025 Albumin [Mass/Vol] 2.9 g/dL Low 3.5-5.0 [facility] Serum or plasma albumin/glob ulin mass ratioOrdered By: Kayley Melendrez on 02-12-2025 Albumin/Globulin [Mass ratio] 0.7 {ratio} Low 0.9-2.4 [facility] Serum or plasma alkaline jacob sphatase measurementOrdered By: Kayley Melendrez on 02-12-2025 ALP [Catalytic activity/Vol] 177 U/L High 40-129 [facility] Serum or plasma calcium audrey urement (mass/volume)Ordered By: Kayley Melendrez on 02-12-2025 Calcium [Mass/Vol] 9.9 mg/dL 7.6-11.0 [facility] Serum or plasma urea nitroge n measurement (mass/volume)Ordered By: Kayley Melendrez on 02-12-2025 Urea nitrogen [Mass/Vol] 43 mg/dL High 4-19 [facility] Sodium levelOrdered By: Omega Melendrez on 02-12-2025 Sodium [Moles/Vol] 131 mmol/L Low 133-145 [facility] Total proteinOrdered By: Lexis Melendrez on 02-12-2025 Protein [Mass/Vol] 7.1 g/dL 5.9-8.4 [facility] White blood cell (WBC) count Ordered By: Kayley Melendrez on 02-12-2025 WBC (Bld) [#/Vol] 7.3 10*3/uL 4.4-11.0 [facility] 36on 02-09-2025 36 Normal [facility] normalized rat io (INR) measurement by fingerstickOrdered By: Kayley Melendrez on 02-08-2025 INR Coag (BldC) [Relative time] 2.3 [facility] Comment on above: Critical Value > 4.0 Protime w/INR Fingerstickon 02-08-2025 INR Coag (PPP) [Relative time] 2.3 {INR} Normal [facility] Comment on above: Result Comment: Crit ical Value > 4.0 Performed By: #### L 100.0100, L300.3900, L500.4050 #### [facility] [address] [place], [address] Protime Coagsen 24.9 SEC High 11.7-14.9 [facility] Comment on above: Performed By: #### L 100.0100, L300.3900, L500.4050 #### [facility] [address] [place], [address] Whole blood prothrombin time Ordered By: Kayley Melendrez on 02-08-2025 PT Coag (Bld) [Time] 24.9 s High 11.7-14.9 [facility] normalized rat io (INR) calculationOrdered By: Jayesh Stubbs on 02-07-2025 INR Coag (Bld) [Relative time] 1.8 {INR} [facility] Prothrombin Time w/INRon INR Coag (PPP) [Relative time] 1.8 {INR} Normal [facility] Comment on above: Order Comment: 412.2 Performed By: #### L 100.0100, L300.3900, L500.4050 #### [facility] [address] [place], [address] PT Coag (PPP) [Time] 21.1 s High 11.7-14.9 [facility] Comment on above: Order Comment: 412.2 Performed By: #### L 100.0100, L300.3900, L500.4050 #### [facility] [address] [place], [address] Prothrombin timeOrdered By: Jayesh Stubbs on 02-07-2025 PT Coag (PPP) [Time] 21.1 s High 11.7-14.9 [facility] Absolute lymphocyte countOrd ered By: Kayley Melendrez on 02-05-2025 Lymphocytes Auto (Unsp spec) [#/Vol] 1.77 10*3/uL 0.83-4.51 [facility] Absolute neutrophil countOrd ered By: Kayley Melendrez on 02-05-2025 Neutrophils (Bld) [#/Vol] 4.6 10*3/uL 2.0-7.7 [facility] Anion gap in Serum or Plasma Ordered By: Kayley Melendrez on 02-05-2025 Anion gap [Moles/Vol] 18 mmol/L High 5-15 [facility] Automated lymphocyte count a s percentage of total leukocytesOrdered By: Lexisamparo Melendrez on 02-05-2025 Lymphocytes/100 WBC Auto (Unsp spec) 22.0 % 19-41 [facility] BUN/creatinine ratioOrdered By: Navarrojacob Rejistephen on 02-05-2025 Urea nitrogen/Creatinine [Mass ratio] 4.1 mg/mg Low 10-20 [facility] Basophil percentageOrdered B y: Kayley Parvin on 02-05-2025 Basophils/100 WBC (Bld) 1.0 % 0-1 [facility] Bilirubin, totalOrdered By: Navarrojacob Melendrez on 02-05-2025 Bilirubin [Mass/Vol] 0.81 mg/dL 0.00-1.30 [facility] CBC W/Diff, Automatedon 01-25 Absolute Lymph 1.77 X10 3/uL Normal 0.83-4.51 [facility] Comment on above: Order Comment: 413.2 Performed By: #### L 300.3900 #### [facility] [address] [place], [address] Absolute Neut 4.6 X10 3/uL Normal 2.0-7.7 [facility] Comment on above: Order Comment: 413.2 Performed By: #### L 300.3900 #### [facility] [address] [place], [address] Basophils/100 WBC (Bld) 1.0 % Normal 0-1 [facility] Comment on above: Order Comment: 413.2 Performed By: #### L 300.3900 #### [facility] [address] [place], [address] Eosinophils/100 WBC (Bld) 4.1 % Normal 0-5 [facility] Comment on above: Order Comment: 413.2 Performed By: #### L 300.3900 #### [facility] [address] [place], [address] Erythrocyte distribution width (RBC) [Ratio] 18.8 % High 11.6-14.6 [facility] Comment on above: Order Comment: 413.2 Performed By: #### L 300.3900 #### [facility] [address] [place], [address] Hematocrit (Bld) [Volume fraction] 28.1 % Low 40-54 [facility] Comment on above: Order Comment: 413.2 Performed By: #### L 300.3900 #### [facility] [address] [place], [address] Hemoglobin (Bld) [Mass/Vol] 8.8 g/dL Low 13.0-16.5 [facility] Comment on above: Order Comment: 413.2 Performed By: #### L 300.3900 #### [facility] [address] [place], [address] IG% 0.600 Normal 0.0-0.9 [facility] Comment on above: Order Comment: 413.2 Result Comment: IG% - Immature Granulocytes (promyelocytes, myelocytes and metamyelocytes) > 1% indicates that a LEFT SHIFT is Present. Performed By: #### L 300.3900 #### [facility] [address] [place], [address] Lymphocytes/100 WBC (Bld) 22.0 % Normal 19-41 [facility] Comment on above: Order Comment: 413.2 Performed By: #### L 300.3900 #### [facility] [address] [place], [address] MCH (RBC) [Entitic mass] 29.0 pg Normal 27.0-32.0 [facility] Comment on above: Order Comment: 413.2 Performed By: #### L 300.3900 #### [facility] [address] [place], [address] MCHC (RBC) [Mass/Vol] 31.3 g/dL Low 32-36 [facility] Comment on above: Order Comment: 413.2 Performed By: #### L 300.3900 #### [facility] [address] [place], [address] MCV (RBC) [Entitic vol] 92.7 fL Normal 80-94 [facility] Comment on above: Order Comment: 413.2 Performed By: #### L 300.3900 #### [facility] [address] [place], [address] Monocytes/100 WBC (Bld) 15.6 % High 0-10 [facility] Comment on above: Order Comment: 413.2 Performed By: #### L 300.3900 #### [facility] [address] [place], [address] Neutrophils/100 WBC (Bld) 56.7 % Normal 47-70 [facility] Comment on above: Order Comment: 413.2 Performed By: #### L 300.3900 #### [facility] [address] [place], [address] Nucleated RBC (Bld) [#/Vol] 0 10*3/uL Normal 0-5 [facility] Comment on above: Order Comment: 413.2 Performed By: #### L 300.3900 #### [facility] [address] [place], [address] Platelet mean volume (Bld) [Entitic vol] 9.2 fL Normal 6.2-12.0 [facility] Comment on above: Order Comment: 413.2 Performed By: #### L 300.3900 #### [facility] [address] [place], [address] Platelets (Bld) [#/Vol] 358 10*3/uL Normal 150-450 [facility] Comment on above: Order Comment: 413.2 Performed By: #### L 300.3900 #### [facility] [address] [place], [address] RBC (Bld) [#/Vol] 3.03 10*6/uL Low 4.6-6.2 [facility] Comment on above: Order Comment: 413.2 Performed By: #### L 300.3900 #### [facility] [address] [place], [address] RDW SD 63.1 fl High 35.1-43.9 [facility] Comment on above: Order Comment: 413.2 Performed By: #### L 300.3900 #### [facility] [address] [place], [address] WBC (Bld) [#/Vol] 8.1 10*3/uL Normal 4.4-11.0 [facility] Comment on above: Order Comment: 413.2 Performed By: #### L 300.3900 #### [facility] [address] [place], [address] Carbon dioxide, total [Moles /volume] in Central venous bloodOrdered By: Kayley Melendrez on 02-05-2025 CO2 [Moles/Vol] 25.9 mmol/L 21.0-32.0 [facility] Chloride assayOrdered By: Carmen Melendrez on 02-05-2025 Chloride [Moles/Vol] 93 mmol/L Low 98-108 [facility] Comprehensive Metabolic Prof ilon 02-05-2025 Albumin [Mass/Vol] 3.1 g/dL Low 3.5-5.0 [facility] Comment on above: Order Comment: 413.2 Performed By: #### L 300.3900 #### [facility] [address] [place], [address] Albumin/Globulin [Mass ratio] 0.7 {ratio} Low 0.9-2.4 [facility] Comment on above: Order Comment: 413.2 Performed By: #### L 300.3900 #### [facility] [address] [place], [address] ALK PHOS 260 U/L High 40-129 [facility] Comment on above: Order Comment: 413.2 Performed By: #### L 300.3900 #### [facility] [address] [place], [address] ALT [Catalytic activity/Vol] 11 U/L Normal <=46 [facility] Comment on above: Order Comment: 413.2 Performed By: #### L 300.3900 #### [facility] [address] [place], [address] AST [Catalytic activity/Vol] 42 U/L High <=37 [facility] Comment on above: Order Comment: 413.2 Performed By: #### L 300.3900 #### [facility] [address] [place], [address] Bilirubin [Mass/Vol] 0.81 mg/dL Normal 0.00-1.30 [facility] Comment on above: Order Comment: 413.2 Performed By: #### L 300.3900 #### [facility] [address] [place], [address] BUN/CRE 4.1 RATIO Low 10-20 [facility] Comment on above: Order Comment: 413.2 Performed By: #### L 300.3900 #### [facility] [address] [place], [address] Calcium [Mass/Vol] 10.0 mg/dL Normal 7.6-11.0 [facility] Comment on above: Order Comment: 413.2 Performed By: #### L 300.3900 #### [facility] [address] [place], [address] Chloride [Moles/Vol] 93 mmol/L Low 98-108 [facility] Comment on above: Order Comment: 413.2 Performed By: #### L 300.3900 #### [facility] [address] [place], [address] CO2 [Moles/Vol] 25.9 mmol/L Normal 21.0-32.0 [facility] Comment on above: Order Comment: 413.2 Performed By: #### L 300.3900 #### [facility] [address] [place], [address] Creatinine [Mass/Vol] 5.27 mg/dL High 0.70-1.20 [facility] Comment on above: Order Comment: 413.2 Performed By: #### L 300.3900 #### [facility] [address] [place], [address] GAP 18 High 5-15 [facility] Comment on above: Order Comment: 413.2 Performed By: #### L 300.3900 #### [facility] [address] [place], [address] GFR/1.73 sq M.predicted among non-blacks MDRD (S/P/Bld) [Vol rate/Area] 12 mL/min/{1.73_m2} Low >60 [facility] Comment on above: Order Comment: 413.2 Result Comment: mL/m in/1.73m2 CKD-EPI Creatinine Equation (2020) Performed By: #### L 300.3900 #### [facility] [address] [place], [address] Globulin (S) [Mass/Vol] 4.3 g/dL High 2.2-4.2 [facility] Comment on above: Order Comment: 413.2 Performed By: #### L 300.3900 #### [facility] [address] [place], [address] Glucose [Mass/Vol] 65 mg/dL Low 70-99 [facility] Comment on above: Order Comment: 413.2 Performed By: #### L 300.3900 #### [facility] [address] [place], [address] Potassium [Moles/Vol] 4.5 mmol/L Normal 3.3-5.1 [facility] Comment on above: Order Comment: 413.2 Performed By: #### L 300.3900 #### [facility] [address] [place], [address] Sodium [Moles/Vol] 136 mmol/L Normal 133-145 [facility] Comment on above: Order Comment: 413.2 Performed By: #### L 300.3900 #### [facility] [address] [place], [address] T PROT 7.4 g/dL Normal 5.9-8.4 [facility] Comment on above: Order Comment: 413.2 Performed By: #### L 300.3900 #### [facility] [address] [place], [address] Urea nitrogen [Mass/Vol] 22 mg/dL High 4-19 [facility] Comment on above: Order Comment: 413.2 Performed By: #### L 300.3900 #### [facility] [address] [place], [address] Eosinophil percentageOrdered By: Kayley Melendrez on 02-05-2025 Eosinophils/100 WBC (Bld) 4.1 % 0-5 [facility] Erythrocyte distribution wid th ratioOrdered By: Kayley Melendrez on 02-05-2025 Erythrocyte distribution width (RBC) [Ratio] 18.8 % High 11.6-14.6 [facility] Erythrocyte distribution wid th standard deviationOrdered By: Kayley Melendrez on 02-05-2025 Erythrocyte distribution width (RBC) [Ratio] 63.1 fl High 35.1-43.9 [facility] Glomerular filtration rate ( GFR) estimation/1.73 sq m using serum, plasma, or whole bOrdered By: Kayley Melendrez on 02-05-2025 GFR/1.73 sq M.predicted among non-blacks MDRD (S/P/Bld) [Vol rate/Area] 12 mL/min/{1.73_m2} Low >60 [facility] Comment on above: mL/min/1.73m2 CKD-EP I Creatinine Equation (2020) Hematocrit Auto (Bld) [Volum e fraction]Ordered By: Kayley Melendrez on 02-05-2025 Hematocrit (Bld) [Volume fraction] 28.1 % Low 40-54 [facility] Hemoglobin measurementOrdere d By: Kayley Melendrez on 02-05-2025 Hemoglobin (Bld) [Mass/Vol] 8.8 g/dL Low 13.0-16.5 [facility] Immature granulocytes/100 WB C Auto (Bld)Ordered By: Kayley Melendrez on 02-05-2025 Immature granulocytes/100 WBC (Bld) 0.600 % 0.0-0.9 [facility] Comment on above: IG% - Immature Granu locytes (promyelocytes, myelocytes and metamyelocytes) > 1% indicates that a LEFT SHIFT is Present. Laboratory - Chemistry and C hemistry - challengeOrdered By: Kayley Melendrez on 02-05-2025 AST [Catalytic activity/Vol] 42 U/L High <38 [facility] MCV (mean corpuscular volume ) determinationOrdered By: Kayley Melendrez on 02-05-2025 MCV (RBC) [Entitic vol] 92.7 fL 80-94 [facility] Mean corpuscular hemoglobin (MCH) determinationOrdered By: Kayley Melendrez on 02-05-2025 MCH (RBC) [Entitic mass] 29.0 pg 27.0-32.0 [facility] Mean corpuscular hemoglobin concentration (MCHC) determinationOrdered By: Kayley Melendrez on 02-05-2025 MCHC (RBC) [Mass/Vol] 31.3 g/dL Low 32-36 [facility] Mean platelet volume determi nationOrdered By: Kayley Melendrez on 02-05-2025 Platelet mean volume (Bld) [Entitic vol] 9.2 fL 6.2-12.0 [facility] Monocyte percentageOrdered B y: Kayley Melendrez on 02-05-2025 Monocytes/100 WBC (Bld) 15.6 % High 0-10 [facility] Neutrophil percentageOrdered By: Kayley Melendrez on 02-05-2025 Neutrophils/100 WBC (Bld) 56.7 % 47-70 [facility] Nucleated red blood cell per centageOrdered By: Kayley Melendrez on 02-05-2025 Nucleated RBC/100 WBC (Bld) [Ratio] 0 % 0-5 [facility] Platelet countOrdered By: Carmen Melendrez on 02-05-2025 Platelets (Bld) [#/Vol] 358 10*3/uL 150-450 [facility] Potassium measurement (mass/ volume)Ordered By: Kayley Melendrez on 02-05-2025 Potassium (Unsp spec) [Mass/Vol] 4.5 mmol/L 3.3-5.1 [facility] RBC Auto (Bld) [#/Vol]Ordere d By: Kayley Melendrez on 02-05-2025 RBC (Bld) [#/Vol] 3.03 10*6/uL Low 4.6-6.2 [facility] Serum creatinine measurement (mass/volume)Ordered By: Kayley Melendrez on 02-05-2025 Creatinine [Mass/Vol] 5.27 mg/dL High 0.70-1.20 [facility] Serum globulin measurementOr dered By: Kayley Melendrez on 02-05-2025 Globulin (S) [Mass/Vol] 4.3 g/dL High 2.2-4.2 [facility] Serum glucose measurement (m ass/volume)Ordered By: Kayley Melendrez on 02-05-2025 Glucose [Mass/Vol] 65 mg/dL Low 70-99 [facility] Serum or plasma alanine mayorga otransferase (ALT) measurementOrdered By: Kayley Melendrez on 02-05-2025 ALT [Catalytic activity/Vol] 11 U/L <47 [facility] Serum or plasma albumin audrey urement (mass/volume)Ordered By: Kayley Melendrez on 02-05-2025 Albumin [Mass/Vol] 3.1 g/dL Low 3.5-5.0 [facility] Serum or plasma albumin/glob ulin mass ratioOrdered By: Kayley Melendrez on 02-05-2025 Albumin/Globulin [Mass ratio] 0.7 {ratio} Low 0.9-2.4 [facility] Serum or plasma alkaline jacob sphatase measurementOrdered By: Kayley Melendrez on 02-05-2025 ALP [Catalytic activity/Vol] 260 U/L High 40-129 [facility] Serum or plasma calcium audrey urement (mass/volume)Ordered By: Kayley Melendrez on 02-05-2025 Calcium [Mass/Vol] 10.0 mg/dL 7.6-11.0 [facility] Serum or plasma urea nitroge n measurement (mass/volume)Ordered By: Kayley Melendrez on 02-05-2025 Urea nitrogen [Mass/Vol] 22 mg/dL High 4-19 [facility] Sodium levelOrdered By: Omega Melendrez on 02-05-2025 Sodium [Moles/Vol] 136 mmol/L 133-145 [facility] Total proteinOrdered By: Lexis Melendrez on 02-05-2025 Protein [Mass/Vol] 7.4 g/dL 5.9-8.4 [facility] White blood cell (WBC) count Ordered By: Kayley Melendrez on 02-05-2025 WBC (Bld) [#/Vol] 8.1 10*3/uL 4.4-11.0 [facility] 36on 02-02-2025 36 Normal [facility] 36 [phone], spoke to nurse Delilah to verify orders, follow up appointment and tunneled line removal. Normal [facility] Progress Noteon 02-02-2025 Progress Note Normal [facility] Progress Note Pt discharged to [facility] on 02/01/25. Updated tracker with hospital doses. Warfarin dosing instructions: 0.5 mg per day. New interacting meds: N/a Next SAILAJA appt: post SNF Normal [facility] Progress Note Patient was readmitted on 02/20 and discharged back to [facility] on 03/05. Normal [facility] Progress Note Patient is still at [facility] ([phone]). I left a message for ELIA Anderson, regarding discharge plans. Normal [facility] [id number] 02-01-2025 [id number] created in HENS per TCC request. Facility notified via [employer]. [facility] [phone] [facility] CBC (HEMOGRAM)on 02-01-2025 Erythrocyte distribution width (RBC) [Ratio] 18.8 % High 11.5-15.0 [facility] Comment on above: Performed By: #### L [id number] ####Filing Clerk: DOMENICA JARA ([phone])[address] Hematocrit (Bld) [Volume fraction] 28.3 % Low 40.0-52.0 [facility] Comment on above: Performed By: #### L AB294 ####Filing Clerk: DOMENICA JARA ([phone])[address] Hemoglobin (Bld) [Mass/Vol] 8.9 g/dL Low 13.0-18.0 [facility] Comment on above: Performed By: #### L AB294 ####Filing Clerk: DOMENICA [phone])[address] MCH (RBC) [Entitic mass] 28.2 pg Normal 26.0-34.0 [facility] Comment on above: Performed By: #### L AB294 ####Filing Clerk: DOMENICA [phone])[facility] [place] [address] MCHC 31.4 % Normal 30.5-36.0 [facility] Comment on above: Performed By: #### L AB294 ####Filing Clerk: DOMENICA JARA ([phone])[facility] ([facility])[address] [place] [address] MCV (RBC) [Entitic vol] 89.6 fL Normal 77.0-99.0 [facility] Comment on above: Performed By: #### L AB294 ####Filing Clerk: DOMENICA JARA ([phone])[facility] ([facility])[address] [place] [address] Platelet mean volume (Bld) [Entitic vol] 9.0 fL Normal 9.0-12.7 [facility] Comment on above: Performed By: #### L AB294 ####Filing Clerk: DOMENICA JARA ([phone])[facility] ([facility])[address] [place] [address] Platelets (Bld) [#/Vol] 282 10*3/uL Normal 140-440 [facility] Comment on above: Performed By: #### L AB294 ####Filing Clerk: DOMENICA JARA ([phone])[facility] ([facility])[address] [place] [address] RBC (Bld) [#/Vol] 3.16 10*6/uL Low 4.40-5.90 [facility] Comment on above: Performed By: #### L AB294 ####Filing Clerk: DOMENICA JARA ([phone])[facility] ([facility])[address] [place] [address] WBC (Bld) [#/Vol] 7.9 10*3/uL Normal 3.6-10.7 [facility] Comment on above: Performed By: #### L AB294 ####Filing Clerk: DOMENICA JARA ([phone])[facility] ([facility])[address] [place] [address] CBC panel Auto (Bld)on 02-01 Erythrocyte distribution width (RBC) [Ratio] 18.8 % High 11.5 - 15.0 % [facility] Hematocrit (Bld) [Volume fraction] 28.3 % Low 40.0 - 52.0 % [facility] Hemoglobin (Bld) [Mass/Vol] 8.9 g/dL Low 13.0 - 18.0 g/dL [facility] Interpretation and review of laboratory results Abnormal [facility] MCH (RBC) [Entitic mass] 28.2 pg 26. 0 - 34.0 pg [facility] MCHC (RBC) [Mass/Vol] 31.4 % 30.5 - 36.0 % [facility] MCV (RBC) [Entitic vol] 89.6 fL 77.0 - 99.0 fL [facility] Platelet mean volume (Bld) [Entitic vol] 9 fL 9.0 - 12.7 fL [facility] Platelets (Bld) [#/Vol] 282 10*3/uL 140 - 440 10*3/uL [facility] RBC (Bld) [#/Vol] 3.16 10*6/uL Low 4.40 - 5.9 0 10*6/uL [facility] WBC (Bld) [#/Vol] 7.9 10*3/uL 3.6 - 10.7 10*3/uL [facility] COMPREHENSIVE METABOLIC PANE Victor M 02-01-2025 Albumin [Mass/Vol] 2.1 g/dL Low 3.5-5.0 [facility] Comment on above: Performed By: #### L AB103, [id number], LAB17 ####Filing Clerk: DOMENICA JARA ([phone])[facility] ([facility])[address] [place] [address] ALP [Catalytic activity/Vol] 226 U/L High 40-150 [facility] Comment on above: Performed By: #### L AB103, [id number], LAB17 ####Filing Clerk: DOMENICA JARA ([phone])[facility])[address] [place] [address] ALT [Catalytic activity/Vol] 10 U/L Normal <40 [facility] Comment on above: Performed By: #### L AB103, [id number], LAB17 ####Filing Clerk: DOMENICA JARA ([phone])[facility] ([facility])[address] [place] [address] Anion gap [Moles/Vol] 11 mmol/L Normal 3-13 [facility] Comment on above: Performed By: #### L AB103, [id number], LAB17 ####Filing Clerk: DOMENICA JARA ([phone])[facility] ([facility])[address] [place] [address] AST [Catalytic activity/Vol] 32 U/L Normal <34 [facility] Comment on above: Performed By: #### L AB103, [id number], LAB17 ####Filing Clerk: DOMENICA JARA ([phone])[facility] ([facility])[address] [place] [address] Bilirubin [Mass/Vol] 0.9 mg/dL Normal <1.2 [facility] Comment on above: Performed By: #### L AB103, [id number], LAB17 ####Filing Clerk: DOMENICA JARA ([phone])[facility] ([facility])[address] [place] [address] Calcium [Mass/Vol] 9.7 mg/dL Normal 8.4-10.2 [facility] Comment on above: Performed By: #### L AB103, [id number], LAB17 ####Filing Clerk: DOMENICA JARA ([phone])[facility] ([facility])[address] [place] [address] [place] Chloride [Moles/Vol] 99 mmol/L Normal 98-107 [facility] Comment on above: Performed By: #### L AB103, [id number], LAB17 ####Filing Clerk: DOMENICA JARA ([phone])[facility])[address] [place] [address] CO2 [Moles/Vol] 26 mmol/L Normal 22-29 [facility] Comment on above: Performed By: #### L AB103, [id number], LAB17 ####Filing Clerk: DOMENICA JARA ([phone])[facility] [place] [address] [place] Creatinine [Mass/Vol] 2.39 mg/dL High 0.72-1.25 [facility] Comment on above: Performed By: #### L AB103, [id number], LAB17 ####Filing Clerk: DOMENICA JARA ([phone])[facility] ([facility])[address] [place] [address] Glucose [Mass/Vol] 87 mg/dL Normal 74-100 [facility] Comment on above: Performed By: #### L AB103, [id number], LAB17 ####Filing Clerk: DOMENICA JARA ([phone])[facility] ([facility])[address] [place] [address] Potassium [Moles/Vol] 3.7 mmol/L Normal 3.5-5.1 [facility] Comment on above: Result Comment: [facility] potassium values may be up to 0.5 mmol/L lower than serum values. Performed By: #### L AB103, [id number], LAB17 ####Filing Clerk: DOMENICA JARA ([phone])[facility] ([facility])[address] [place] [address] Protein [Mass/Vol] 7.4 g/dL Normal 6.4-8.3 [facility] Comment on above: Performed By: #### L AB103, [id number], LAB17 ####Filing Clerk: DOMENICA JARA ([phone])[facility] ([facility])[address] [place] [address] [place] Sodium [Moles/Vol] 136 mmol/L Normal 136-145 [facility] Comment on above: Performed By: #### L AB103, [id number], LAB17 ####Filing Clerk: DOMENICA JARA ([phone])[facility])[address] [place] [address] [place] Urea nitrogen [Mass/Vol] 7 mg/dL Low 9-23 [facility] Comment on above: Performed By: #### L AB103, [id number], LAB17 ####Filing Clerk: DOMENICA JARA ([phone])[facility] ([facility])[address] [place] [address] Comprehensive metabolic 1998 panelon 02-01-2025 Albumin [Mass/Vol] 2.1 g/dL Low 3.5 - 5.0 g/dL [facility] ALP [Catalytic activity/Vol] 226 U/L High 40 - 150 U/L [facility] ALT [Catalytic activity/Vol] 10 U/L NINF - 40 U/L [facility] Anion gap [Moles/Vol] 11 mmol/L 3 - 13 mmol/L [facility] AST [Catalytic activity/Vol] 32 U/L NINF - 34 U/L [facility] Bilirubin [Mass/Vol] 0.9 mg/dL NINF - 1.2 mg/dL [facility] Calcium [Mass/Vol] 9.7 mg/dL 8.4 - 10. 2 mg/dL [facility] Chloride [Moles/Vol] 99 mmol/L 98 - 10 7 mmol/L [facility] CO2 [Moles/Vol] 26 mmol/L 22 - 29 mmol/L [facility] Creatinine [Mass/Vol] 2.39 mg/dL High 0.72 - 1.25 mg/dL [facility] GFR/1.73 sq M.predicted (S/P/Bld) [Vol rate/Area] 30.5 mL/min Low - PINF [facility] Glucose [Mass/Vol] 87 mg/dL 74 - 100 mg/dL [facility] Interpretation and review of laboratory results Abnormal [facility] Potassium [Moles/Vol] 3.7 mmol/L 3.5 - 5.1 mmol/L [facility] Protein [Mass/Vol] 7.4 g/dL 6.4 - 8.3 g/dL [facility] Sodium [Moles/Vol] 136 mmol/L 136 - 145 mmol/L [facility] Urea nitrogen [Mass/Vol] 7 mg/dL Low 9 - 23 mg/d L [facility] HEMOGLOBIN AND HEMATOCRIT, B LOODon 02-01-2025 Hematocrit (Bld) [Volume fraction] 28.8 % Low 40.0-52.0 [facility] Comment on above: Performed By: #### L [id number] ####Filing Clerk: DOMENICA JARA ([id number])[facility] [place] [address] Hemoglobin (Bld) [Mass/Vol] 8.9 g/dL Low 13.0-18.0 [facility] Comment on above: Performed By: #### L [id number] ####Filing Clerk: DOMENICA JARA ([phone])[facility] ([facility])[address] [place] [address] Hemoglobin (Bld) [Mass/Vol]O rdered By: Rosa Juares on 02-01-2025 Hematocrit (Bld) [Volume fraction] 28.8 % Low 40.0 - 52.0 % [facility] Interpretation and review of laboratory results Abnormal [facility] - Chemistry and C hemistry - challengeon 02-01-2025 Magnesium [Mass/Vol] 1.9 mg/dL 1.6 - 2 .6 mg/dL [facility] - Coagulationon 0 02-01-2025 PT Coag (Bld) [Time] 20.3 s High 9.0 - 12.0 s [facility] - Hematology and Cell countsOrdered By: Rosa Juares on 02-01-2025 Hemoglobin (Bld) [Mass/Vol] 8.9 g/dL Low 13.0 - 18.0 g/dL [facility] MAGNESIUMon 02-01-2025 Magnesium [Mass/Vol] 1.9 mg/dL Normal 1.6-2.6 [facility] Comment on above: Result Comment: ARPAN Kaplan COMMENTS:Higher values can be expected in females during menses. Performed By: #### L [id number], [id number], [id number] ####Filing Clerk: DOMENICA JARA ([phone])[facility] ([facility])[address] [place] [address] Magnesium [Mass/Vol]on 02-01 [facility] No Panel Informationon 02-01 Interpretation and review of laboratory results Normal [facility] Nursing Noteon 02-01-2025 Nursing Note Transport here to take patient to [facility]. Wound Vac tubing clamped and disconnected from wound vac. Facility will determine if tubing is compatible with their wound vacs. Normal [facility] PHOSPHORUSon 02-01-2025 Phosphate [Mass/Vol] 3.4 mg/dL Normal 2.3-4.7 [facility] Comment on above: Performed By: #### L [id number], [id number], [id number] ####Filing Clerk: DOMENICA JARA ([phone])[facility] ([facility])[address] [place] [address] PROTHROMBIN TIMEon INR Coag (PPP) [Relative time] 2.0 {INR} High 0.9-1.1 [facility] Comment on above: Result Comment: Vaughn [...] Myocardial Infarction Performed By: #### L [id number] ####Filing Clerk: DOMENICA JARA ([phone])[facility] ([facility])[address] [place] [address] PT Coag (PPP) [Time] 20.3 s High 9.0-12.0 [facility] Comment on above: Performed By: #### L [id number] ####Filing Clerk: DOMENICA JARA ([phone])[facility])[address] [place] [address] PT Coag (Bld) [Time]on 02-01 INR Coag (PPP) [Relative time] 2 {INR} High 0.9 - 1.1 [facility] Interpretation and review of laboratory results Abnormal [facility] Phosphate [Moles/Vol]on Phosphate [Mass/Vol] 3.4 mg/dL 2.3 - 4 .7 mg/dL [facility] Progress Noteon 02-01-2025 Progress Note Normal [facility] Progress Note Normal [facility] Progress Note Normal [facility] CBC panel Auto (Bld)on 01-31 Erythrocyte distribution width (RBC) [Ratio] 19.2 % High 11.5 - 15.0 % [facility] Hematocrit (Bld) [Volume fraction] 27.9 % Low 40.0 - 52.0 % [facility] Hemoglobin (Bld) [Mass/Vol] 8.8 g/dL Low 13.0 - 18.0 g/dL [facility] Interpretation and review of laboratory results Abnormal [facility] MCH (RBC) [Entitic mass] 28.4 pg 26. 0 - 34.0 pg [facility] MCHC (RBC) [Mass/Vol] 31.5 % 30.5 - 36.0 % [facility] MCV (RBC) [Entitic vol] 90 fL 77.0 - 99.0 fL [facility] Platelet mean volume (Bld) [Entitic vol] 9 fL 9.0 - 12.7 fL [facility] Platelets (Bld) [#/Vol] 278 10*3/uL 140 - 440 10*3/uL [facility] RBC (Bld) [#/Vol] 3.1 10*6/uL Low 4.40 - 5.9 0 10*6/uL [facility] WBC (Bld) [#/Vol] 9.3 10*3/uL 3.6 - 10.7 10*3/uL [facility] Comprehensive metabolic 1998 panelon 01-31-2025 Albumin [Mass/Vol] 2.1 g/dL Low 3.5 - 5.0 g/dL [facility] ALP [Catalytic activity/Vol] 218 U/L High 40 - 150 U/L [facility] ALT [Catalytic activity/Vol] 11 U/L NINF - 40 U/L [facility] Anion gap [Moles/Vol] 12 mmol/L 3 - 13 mmol/L [facility] AST [Catalytic activity/Vol] 31 U/L NINF - 34 U/L [facility] Bilirubin [Mass/Vol] 0.8 mg/dL NINF - 1.2 mg/dL [facility] Calcium [Mass/Vol] 10 mg/dL 8.4 - 10. 2 mg/dL [facility] Chloride [Moles/Vol] 99 mmol/L 98 - 10 7 mmol/L [facility] CO2 [Moles/Vol] 27 mmol/L 22 - 29 mmol/L [facility] Creatinine [Mass/Vol] 3.64 mg/dL High 0.72 - 1.25 mg/dL [facility] GFR/1.73 sq M.predicted (S/P/Bld) [Vol rate/Area] 18.4 mL/min Low - PINF [facility] Glucose [Mass/Vol] 87 mg/dL 74 - 100 mg/dL [facility] Interpretation and review of laboratory results Abnormal [facility] Potassium [Moles/Vol] 4.3 mmol/L 3.5 - 5.1 mmol/L [facility] Protein [Mass/Vol] 7.3 g/dL 6.4 - 8.3 g/dL [facility] Sodium [Moles/Vol] 138 mmol/L 136 - 145 mmol/L [facility] Urea nitrogen [Mass/Vol] 15 mg/dL 9 - 23 mg/d L [facility] Hemoglobin (Bld) [Mass/Vol]o n 01-31-2025 Hematocrit (Bld) [Volume fraction] 28.8 % Low 40.0 - 52.0 % [facility] Interpretation and review of laboratory results Abnormal [facility] - Chemistry and C hemistry - challengeon 01-31-2025 Magnesium [Mass/Vol] 2 mg/dL 1.6 - 2 .6 mg/dL [facility] - Coagulationon 0 01-31-2025 PT Coag (Bld) [Time] 22.4 s High 9.0 - 12.0 s [facility] - Hematology and Cell countson 01-31-2025 Hemoglobin (Bld) [Mass/Vol] 9.2 g/dL Low 13.0 - 18.0 g/dL [facility] Magnesium [Mass/Vol]on 01-31 [facility] No Panel Informationon 01-31 Interpretation and review of laboratory results Normal [facility] PT Coag (Bld) [Time]on 01-31 INR Coag (PPP) [Relative time] 2.2 {INR} High 0.9 - 1.1 [facility] Interpretation and review of laboratory results Abnormal [facility] Phosphate [Moles/Vol]on Phosphate [Mass/Vol] 4.6 mg/dL 2.3 - 4 .7 mg/dL [facility] Basic metabolic 1998 panelon 01-30-2025 Anion gap [Moles/Vol] 13 mmol/L 3 - 13 mmol/L [facility] Calcium [Mass/Vol] 9.6 mg/dL 8.4 - 10. 2 mg/dL [facility] Chloride [Moles/Vol] 99 mmol/L 98 - 10 7 mmol/L [facility] CO2 [Moles/Vol] 23 mmol/L 22 - 29 mmol/L [facility] Creatinine [Mass/Vol] 2.56 mg/dL High 0.72 - 1.25 mg/dL [facility] GFR/1.73 sq M.predicted (S/P/Bld) [Vol rate/Area] 28.1 mL/min Low - PINF [facility] Glucose [Mass/Vol] 88 mg/dL 74 - 100 mg/dL [facility] Interpretation and review of laboratory results Abnormal [facility] Potassium [Moles/Vol] 3.7 mmol/L 3.5 - 5.1 mmol/L [facility] Sodium [Moles/Vol] 135 mmol/L Low 136 - 145 mmol/L [facility] Urea nitrogen [Mass/Vol] 10 mg/dL 9 - 23 mg/d L [facility] CBC panel Auto (Bld)on 01-30 Erythrocyte distribution width (RBC) [Ratio] 18.9 % High 11.5 - 15.0 % [facility] Hematocrit (Bld) [Volume fraction] 28.1 % Low 40.0 - 52.0 % [facility] Hemoglobin (Bld) [Mass/Vol] 8.7 g/dL Low 13.0 - 18.0 g/dL [facility] Interpretation and review of laboratory results Abnormal [facility] MCH (RBC) [Entitic mass] 27.6 pg 26. 0 - 34.0 pg [facility] MCHC (RBC) [Mass/Vol] 31 % 30.5 - 36.0 % [facility] MCV (RBC) [Entitic vol] 89.2 fL 77.0 - 99.0 fL [facility] Platelet mean volume (Bld) [Entitic vol] 9.1 fL 9.0 - 12.7 fL [facility] Platelets (Bld) [#/Vol] 276 10*3/uL 140 - 440 10*3/uL [facility] RBC (Bld) [#/Vol] 3.15 10*6/uL Low 4.40 - 5.9 0 10*6/uL [facility] WBC (Bld) [#/Vol] 8.8 10*3/uL 3.6 - 10.7 10*3/uL [facility] Hemoglobin (Bld) [Mass/Vol]O rdered By: Rikki Caballero on 01-30-2025 Hematocrit (Bld) [Volume fraction] 31.5 % Low 40.0 - 52.0 % [facility] Interpretation and review of laboratory results Abnormal [facility] - Chemistry and C hemistry - challengeon 01-30-2025 Glucose [Mass/Vol] 106 mg/dL High 70 - 100 mg/dL [facility] Glucose [Mass/Vol] 107 mg/dL High 70 - 100 mg/dL [facility] Glucose [Mass/Vol] 77 mg/dL 70 - 100 mg/dL [facility] Magnesium [Mass/Vol] 1.9 mg/dL 1.6 - 2 .6 mg/dL [facility] - Coagulationon 0 01-30-2025 PT Coag (Bld) [Time] 24.9 s High 9.0 - 12.0 s [facility] - Hematology and Cell countsOrdered By: Rikki Caballero on 01-30-2025 Hemoglobin (Bld) [Mass/Vol] 9.8 g/dL Low 13.0 - 18.0 g/dL [facility] Magnesium [Mass/Vol]on 01-30 Interpretation and review of laboratory results Normal [facility] No Panel Informationon 01-30 Interpretation and review of laboratory results Abnormal [facility] RADI[facility] Radiology Study observation (narrative) [facility] Interpretation and review of laboratory results Abnormal [facility] Interpretation and review of laboratory results Normal [facility] Blood Expiration Date [id number] S [facility] [employer] interpretation COMP [facility] Dispense Status Released from [employer] [facility] Product Blood Type 9500 [facility] PRODUCT CODE [id number] [facility] ABO O [facility] Unit Number [id number] [facility] alth Unit RH Negative [facility] Volume 300 mL [facility] No Panel InformationOrdered By: Jun Borrero on 01-30-2025 [facility] Work Phone: PT Coag (Bld) [Time]on 01-30 INR Coag (PPP) [Relative time] 2.5 {INR} High 0.9 - 1.1 [facility] Interpretation and review of laboratory results Abnormal [facility] Phosphate [Moles/Vol]on Interpretation and review of laboratory results Normal [facility] Phosphate [Mass/Vol] 3.7 mg/dL 2.3 - 4 .7 mg/dL [facility] Basic metabolic 1998 panelon 01-29-2025 Anion gap [Moles/Vol] 17 mmol/L High 3 - 13 mmol/L [facility] Calcium [Mass/Vol] 9.8 mg/dL 8.4 - 10. 2 mg/dL [facility] Chloride [Moles/Vol] 94 mmol/L Low 98 - 10 7 mmol/L [facility] CO2 [Moles/Vol] 23 mmol/L 22 - 29 mmol/L [facility] Creatinine [Mass/Vol] 4.17 mg/dL High 0.72 - 1.25 mg/dL [facility] GFR/1.73 sq M.predicted (S/P/Bld) [Vol rate/Area] 15.6 mL/min Low - PINF [facility] Glucose [Mass/Vol] 80 mg/dL 74 - 100 mg/dL [facility] Potassium [Moles/Vol] 3.7 mmol/L 3.5 - 5.1 mmol/L [facility] Sodium [Moles/Vol] 134 mmol/L Low 136 - 145 mmol/L [facility] Urea nitrogen [Mass/Vol] 21 mg/dL 9 - 23 mg/d L [facility] CBC panel Auto (Bld)on 01-29 Erythrocyte distribution width (RBC) [Ratio] 19 % High 11.5 - 15.0 % [facility] Hematocrit (Bld) [Volume fraction] 27.3 % Low 40.0 - 52.0 % [facility] Hemoglobin (Bld) [Mass/Vol] 8.6 g/dL Low 13.0 - 18.0 g/dL [facility] Interpretation and review of laboratory results Abnormal [facility] MCH (RBC) [Entitic mass] 28.1 pg 26. 0 - 34.0 pg [facility] MCHC (RBC) [Mass/Vol] 31.5 % 30.5 - 36.0 % [facility] MCV (RBC) [Entitic vol] 89.2 fL 77.0 - 99.0 fL [facility] Platelet mean volume (Bld) [Entitic vol] 9.4 fL 9.0 - 12.7 fL [facility] Platelets (Bld) [#/Vol] 271 10*3/uL 140 - 440 10*3/uL [facility] RBC (Bld) [#/Vol] 3.06 10*6/uL Low 4.40 - 5.9 0 10*6/uL [facility] WBC (Bld) [#/Vol] 9.4 10*3/uL 3.6 - 10.7 10*3/uL [facility] - Chemistry and C hemistry - challengeon 01-29-2025 Glucose [Mass/Vol] 82 mg/dL 70 - 100 mg/dL [facility] Glucose [Mass/Vol] 87 mg/dL 70 - 100 mg/dL [facility] Glucose [Mass/Vol] 91 mg/dL 70 - 100 mg/dL [facility] Magnesium [Mass/Vol] 2 mg/dL 1.6 - 2 .6 mg/dL [facility] - Coagulationon 0 01-29-2025 Coagulation factor VIII activity actual/normal Coag (PPP) [Relative time] 412 % High 56 - 191 % [facility] vWf Ag actual/normal IA (PPP) [Relative mass conc] 281 % High 52 - 214 % [facility] vWf multimers Ql (PPP) See Note [facility] vWf ristocetin cofactor act actual/normal Platelet aggregation (PPP) [Relative time] 200 % 51 - 215 % [facility] th PT Coag (Bld) [Time] 24 s High 9.0 - 12.0 s [facility] Magnesium [Mass/Vol]on 01-29 Interpretation and review of laboratory results Normal [facility] No Panel Informationon 01-29 Interpretation and review of laboratory results Normal [facility] Interpretation and review of laboratory results Normal [facility] Interpretation and review of laboratory results Abnormal [facility] Interpretation and review of laboratory results Normal [facility] Interpretation and review of laboratory results Abnormal [facility] Interpretation and review of laboratory results Abnormal [facility] PT Coag (Bld) [Time]on 01-29 INR Coag (PPP) [Relative time] 2.4 {INR} High 0.9 - 1.1 [facility] Phosphate [Moles/Vol]on Phosphate [Mass/Vol] 4.9 mg/dL High 2.3 - 4 .7 mg/dL [facility] aPTT Coag (Bld) [Time]on aPTT Coag (PPP) [Time] 51.4 s High 20.0 - 30.5 s [facility] Basic metabolic 1998 panelon 01-28-2025 Anion gap [Moles/Vol] 13 mmol/L 3 - 13 mmol/L [facility] Calcium [Mass/Vol] 10 mg/dL 8.4 - 10. 2 mg/dL [facility] Chloride [Moles/Vol] 98 mmol/L 98 - 10 7 mmol/L [facility] CO2 [Moles/Vol] 26 mmol/L 22 - 29 mmol/L [facility] Creatinine [Mass/Vol] 3.37 mg/dL High 0.72 - 1.25 mg/dL [facility] GFR/1.73 sq M.predicted (S/P/Bld) [Vol rate/Area] 20.2 mL/min Low - PINF [facility] Glucose [Mass/Vol] 82 mg/dL 74 - 100 mg/dL [facility] Interpretation and review of laboratory results Abnormal [facility] Potassium [Moles/Vol] 3.6 mmol/L 3.5 - 5.1 mmol/L [facility] Sodium [Moles/Vol] 137 mmol/L 136 - 145 mmol/L [facility] Urea nitrogen [Mass/Vol] 14 mg/dL 9 - 23 mg/d L [facility] CBC panel Auto (Bld)on 01-28 Erythrocyte distribution width (RBC) [Ratio] 19 % High 11.5 - 15.0 % [facility] Hematocrit (Bld) [Volume fraction] 26.3 % Low 40.0 - 52.0 % [facility] Hemoglobin (Bld) [Mass/Vol] 8.5 g/dL Low 13.0 - 18.0 g/dL [facility] Interpretation and review of laboratory results Abnormal [facility] MCH (RBC) [Entitic mass] 28.2 pg 26. 0 - 34.0 pg [facility] MCHC (RBC) [Mass/Vol] 32.3 % 30.5 - 36.0 % [facility] MCV (RBC) [Entitic vol] 87.4 fL 77.0 - 99.0 fL [facility] Platelet mean volume (Bld) [Entitic vol] 9.3 fL 9.0 - 12.7 fL [facility] Platelets (Bld) [#/Vol] 240 10*3/uL 140 - 440 10*3/uL [facility] RBC (Bld) [#/Vol] 3.01 10*6/uL Low 4.40 - 5.9 0 10*6/uL [facility] WBC (Bld) [#/Vol] 9.8 10*3/uL 3.6 - 10.7 10*3/uL [facility] - Chemistry and C hemistry - challengeon 01-28-2025 Glucose [Mass/Vol] 127 mg/dL High 70 - 100 mg/dL [facility] Magnesium [Mass/Vol] 2 mg/dL 1.6 - 2 .6 mg/dL [facility] - Coagulationon 0 01-28-2025 PT Coag (Bld) [Time] 21.9 s High 9.0 - 12.0 s [facility] Magnesium [Mass/Vol]on 01-28 Interpretation and review of laboratory results Normal [facility] No Panel Informationon 01-28 Interpretation and review of laboratory results Abnormal [facility] Interpretation and review of laboratory results Abnormal [facility] PT Coag (Bld) [Time]on 01-28 INR Coag (PPP) [Relative time] 2.2 {INR} High 0.9 - 1.1 [facility] Phosphate [Moles/Vol]on 05-0 4-2025 Interpretation and review of laboratory results Abnormal [facility] Phosphate [Mass/Vol] 4.9 mg/dL High 2.3 - 4 .7 mg/dL [facility] aPTT Coag (Bld) [Time]on aPTT Coag (PPP) [Time] 49 s High 20.0 - 30.5 s [facility] Interpretation and review of laboratory results Abnormal [facility] aPTT Coag (PPP) [Time] 46.3 s High 20.0 - 30.5 s [facility] Basic metabolic 1998 panelon 01-27-2025 Anion gap [Moles/Vol] 17 mmol/L High 3 - 13 mmol/L [facility] Calcium [Mass/Vol] 9.9 mg/dL 8.4 - 10. 2 mg/dL [facility] Chloride [Moles/Vol] 99 mmol/L 98 - 10 7 mmol/L [facility] CO2 [Moles/Vol] 23 mmol/L 22 - 29 mmol/L [facility] Creatinine [Mass/Vol] 2.27 mg/dL High 0.72 - 1.25 mg/dL [facility] GFR/1.73 sq M.predicted (S/P/Bld) [Vol rate/Area] 32.4 mL/min Low - PINF [facility] Glucose [Mass/Vol] 115 mg/dL High 74 - 100 mg/dL [facility] Interpretation and review of laboratory results Abnormal [facility] Potassium [Moles/Vol] 3.9 mmol/L 3.5 - 5.1 mmol/L [facility] Sodium [Moles/Vol] 139 mmol/L 136 - 145 mmol/L [facility] Urea nitrogen [Mass/Vol] 9 mg/dL 9 - 23 mg/d L [facility] CBC panel Auto (Bld)on 01-27 Erythrocyte distribution width (RBC) [Ratio] 19.1 % High 11.5 - 15.0 % [facility] Hematocrit (Bld) [Volume fraction] 28.3 % Low 40.0 - 52.0 % [facility] Hemoglobin (Bld) [Mass/Vol] 9 g/dL Low 13.0 - 18.0 g/dL [facility] Interpretation and review of laboratory results Abnormal [facility] MCH (RBC) [Entitic mass] 27.6 pg 26. 0 - 34.0 pg [facility] MCHC (RBC) [Mass/Vol] 31.8 % 30.5 - 36.0 % [facility] MCV (RBC) [Entitic vol] 86.8 fL 77.0 - 99.0 fL [facility] Platelet mean volume (Bld) [Entitic vol] 8.7 fL Low 9.0 - 12.7 fL [facility] Platelets (Bld) [#/Vol] 273 10*3/uL 140 - 440 10*3/uL [facility] RBC (Bld) [#/Vol] 3.26 10*6/uL Low 4.40 - 5.9 0 10*6/uL [facility] WBC (Bld) [#/Vol] 10 10*3/uL 3.6 - 10.7 10*3/uL [facility] Hemoglobin (Bld) [Mass/Vol]o n 01-27-2025 Hematocrit (Bld) [Volume fraction] 26.3 % Low 40.0 - 52.0 % [facility] Interpretation and review of laboratory results Abnormal [facility] - Chemistry and C hemistry - challengeon 01-27-2025 Glucose [Mass/Vol] 102 mg/dL High 70 - 100 mg/dL [facility] Glucose [Mass/Vol] 127 mg/dL High 70 - 100 mg/dL [facility] Glucose [Mass/Vol] 87 mg/dL 70 - 100 mg/dL [facility] Magnesium [Mass/Vol] 1.9 mg/dL 1.6 - 2 .6 mg/dL [facility] - Coagulationon 0 01-27-2025 PT Coag (Bld) [Time] 19.9 s High 9.0 - 12.0 s [facility] - Hematology and Cell countson 01-27-2025 Hemoglobin (Bld) [Mass/Vol] 8.4 g/dL Low 13.0 - 18.0 g/dL [facility] Magnesium [Mass/Vol]on 01-27 [facility] No Panel Informationon 01-27 Interpretation and review of laboratory results Abnormal [facility] Interpretation and review of laboratory results Abnormal [facility] Interpretation and review of laboratory results Normal [facility] Interpretation and review of laboratory results Abnormal [facility] Interpretation and review of laboratory results Normal [facility] PT Coag (Bld) [Time]on 01-27 INR Coag (PPP) [Relative time] 1.9 {INR} High 0.9 - 1.1 [facility] Phosphate [Moles/Vol]on Phosphate [Mass/Vol] 3.4 mg/dL 2.3 - 4 .7 mg/dL [facility] aPTT Coag (Bld) [Time]on aPTT Coag (PPP) [Time] 47.9 s High 20.0 - 30.5 s [facility] Interpretation and review of laboratory results Abnormal [facility] aPTT Coag (PPP) [Time] 49.6 s High 20.0 - 30.5 s [facility] Interpretation and review of laboratory results Abnormal [facility] aPTT Coag (PPP) [Time] 45 s High 20.0 - 30.5 s [facility] Interpretation and review of laboratory results Abnormal [facility] aPTT Coag (PPP) [Time] 40.2 s High 20.0 - 30.5 s [facility] Basic metabolic 1998 panelon 01-26-2025 Anion gap [Moles/Vol] 16 mmol/L High 3 - 13 mmol/L [facility] Calcium [Mass/Vol] 9 mg/dL 8.4 - 10. 2 mg/dL [facility] Chloride [Moles/Vol] 100 mmol/L 98 - 10 7 mmol/L [facility] CO2 [Moles/Vol] 20 mmol/L Low 22 - 29 mmol/L [facility] Creatinine [Mass/Vol] 3.37 mg/dL High 0.72 - 1.25 mg/dL [facility] GFR/1.73 sq M.predicted (S/P/Bld) [Vol rate/Area] 20.2 mL/min Low - PINF [facility] Glucose [Mass/Vol] 75 mg/dL 74 - 100 mg/dL [facility] Interpretation and review of laboratory results Abnormal [facility] Potassium [Moles/Vol] 5.1 mmol/L 3.5 - 5.1 mmol/L [facility] Sodium [Moles/Vol] 136 mmol/L 136 - 145 mmol/L [facility] Urea nitrogen [Mass/Vol] 19 mg/dL 9 - 23 mg/d L [facility] CBC panel Auto (Bld)Ordered By: Brandy Ross on 01-26-2025 Erythrocyte distribution width (RBC) [Ratio] 19.3 % High 11.5 - 15.0 % [facility] Hematocrit (Bld) [Volume fraction] 21 % Low 40.0 - 52.0 % [facility] Hemoglobin (Bld) [Mass/Vol] 6.7 g/dL Critically low 13.0 - 18.0 g/dL [facility] Interpretation and review of laboratory results Abnormal [facility] MCH (RBC) [Entitic mass] 27.8 pg 26. 0 - 34.0 pg [facility] MCHC (RBC) [Mass/Vol] 31.9 % 30.5 - 36.0 % [facility] MCV (RBC) [Entitic vol] 87.1 fL 77.0 - 99.0 fL [facility] Platelet mean volume (Bld) [Entitic vol] 10 fL 9.0 - 12.7 fL [facility] Platelets (Bld) [#/Vol] 265 10*3/uL 140 - 440 10*3/uL [facility] RBC (Bld) [#/Vol] 2.41 10*6/uL Low 4.40 - 5.9 0 10*6/uL [facility] WBC (Bld) [#/Vol] 8.7 10*3/uL 3.6 - 10.7 10*3/uL [facility] HBV surface Ab IA Qnon 01-26 [facility] HBV surface Ag IA Qlon 01-26 Interpretation and review of laboratory results Normal [facility] Hemoglobin (Bld) [Mass/Vol]o n 01-26-2025 Hematocrit (Bld) [Volume fraction] 27.9 % Low 40.0 - 52.0 % [facility] Interpretation and review of laboratory results Abnormal [facility] Hematocrit (Bld) [Volume fraction] 28.4 % Low 40.0 - 52.0 % [facility] Interpretation and review of laboratory results Abnormal [facility] - Chemistry and C hemistry - challengeon 01-26-2025 Magnesium [Mass/Vol] 2 mg/dL 1.6 - 2 .6 mg/dL [facility] - Coagulationon 0 01-26-2025 PT Coag (Bld) [Time] 18.3 s High 9.0 - 12.0 s [facility] - Hematology and Cell countson 01-26-2025 Hemoglobin (Bld) [Mass/Vol] 9 g/dL Low 13.0 - 18.0 g/dL [facility] Hemoglobin (Bld) [Mass/Vol] 8.9 g/dL Low 13.0 - 18.0 g/dL [facility] - Microbiology an d Antimicrobial susceptibilityon 01-26-2025 HBV surface Ab IA Qn mIU/mL [facility] HBV surface Ag IA Ql Not detected Not Detected [facility] [facility] Magnesium [Mass/Vol]on 01-26 Interpretation and review of laboratory results Normal [facility] No Panel Informationon 01-26 [facility] Blood Expiration Date [id number] S [facility] Crossmatch interpretation COMP [facility] Dispense Status Transfused [facility] Product Blood Type 9500 [facility] PRODUCT CODE [id number] [facility] Unit ABO O [facility] Unit Number [id number] [facility] Unit RH Negative [facility] Unit Volume 300 mL [facility] Interpretation and review of laboratory results Abnormal [facility] PT Coag (Bld) [Time]on 01-26 INR Coag (PPP) [Relative time] 1.8 {INR} High 0.9 - 1.1 [facility] Phosphate [Moles/Vol]on Interpretation and review of laboratory results Abnormal [facility] Phosphate [Mass/Vol] 5.3 mg/dL High 2.3 - 4 .7 mg/dL [facility] aPTT Coag (Bld) [Time]on aPTT Coag (PPP) [Time] 41.6 s High 20.0 - 30.5 s [facility] Interpretation and review of laboratory results Abnormal [facility] aPTT Coag (PPP) [Time] 47 s High 20.0 - 30.5 s [facility] aPTT Coag (Bld) [Time]Ordere d By: Alan Santos on 01-26-2025 aPTT Coag (PPP) [Time] s Critically high 20.0 - 3 0.5 s [facility] Interpretation and review of laboratory results Abnormal [facility] Basic metabolic 1998 panelon 01-25-2025 Anion gap [Moles/Vol] 16 mmol/L High 3 - 13 mmol/L [facility] Calcium [Mass/Vol] 10.1 mg/dL 8.4 - 10. 2 mg/dL [facility] Chloride [Moles/Vol] 98 mmol/L 98 - 10 7 mmol/L [facility] CO2 [Moles/Vol] 24 mmol/L 22 - 29 mmol/L [facility] Creatinine [Mass/Vol] 2.54 mg/dL High 0.72 - 1.25 mg/dL [facility] GFR/1.73 sq M.predicted (S/P/Bld) [Vol rate/Area] 28.3 mL/min Low - PINF [facility] Glucose [Mass/Vol] 74 mg/dL 74 - 100 mg/dL [facility] Interpretation and review of laboratory results Abnormal [facility] Potassium [Moles/Vol] 3.9 mmol/L 3.5 - 5.1 mmol/L [facility] Sodium [Moles/Vol] 138 mmol/L 136 - 145 mmol/L [facility] Urea nitrogen [Mass/Vol] 15 mg/dL 9 - 23 mg/d L [facility] Blood type and Crossmatch pa freida (Bld)on 01-25-2025 ABO group Nom (Bld) O [facility] Blood group antibody screen GEL Ql Negative [facility] D Ag Ql (RBC) Negative [facility] CBC panel Auto (Bld)on 01-25 Erythrocyte distribution width (RBC) [Ratio] 19.2 % High 11.5 - 15.0 % [facility] Hematocrit (Bld) [Volume fraction] 22.5 % Low 40.0 - 52.0 % [facility] Hemoglobin (Bld) [Mass/Vol] 7 g/dL Low 13.0 - 18.0 g/dL [facility] Interpretation and review of laboratory results Abnormal [facility] MCH (RBC) [Entitic mass] 27.6 pg 26. 0 - 34.0 pg [facility] MCHC (RBC) [Mass/Vol] 31.1 % 30.5 - 36.0 % [facility] MCV (RBC) [Entitic vol] 88.6 fL 77.0 - 99.0 fL [facility] Platelet mean volume (Bld) [Entitic vol] 8.8 fL Low 9.0 - 12.7 fL [facility] Platelets (Bld) [#/Vol] 285 10*3/uL 140 - 440 10*3/uL [facility] RBC (Bld) [#/Vol] 2.54 10*6/uL Low 4.40 - 5.9 0 10*6/uL [facility] WBC (Bld) [#/Vol] 10.2 10*3/uL 3.6 - 10.7 10*3/uL [facility] Hemoglobin (Bld) [Mass/Vol]o n 01-25-2025 Hematocrit (Bld) [Volume fraction] 23.8 % Low 40.0 - 52.0 % [facility] Interpretation and review of laboratory results Abnormal [facility] Hematocrit (Bld) [Volume fraction] 24.4 % Low 40.0 - 52.0 % [facility] Interpretation and review of laboratory results Abnormal [facility] Hematocrit (Bld) [Volume fraction] 24.6 % Low 40.0 - 52.0 % [facility] Interpretation and review of laboratory results Abnormal [facility] Hematocrit (Bld) [Volume fraction] 20.4 % Low 40.0 - 52.0 % [facility] Interpretation and review of laboratory results Abnormal [facility] Laboratory - Chemistry and C hemistry - challengeon 01-25-2025 Magnesium [Mass/Vol] 2.1 mg/dL 1.6 - 2 .6 mg/dL [facility] Laboratory - Coagulationon 0 01-25-2025 PT Coag (Bld) [Time] 17.4 s High 9.0 - 12.0 s [facility] PT Coag (Bld) [Time] 15.9 s High 9.0 - 12.0 s [facility] Laboratory - Hematology and Cell countson 01-25-2025 Hemoglobin (Bld) [Mass/Vol] 7.6 g/dL Low 13.0 - 18.0 g/dL [facility] Hemoglobin (Bld) [Mass/Vol] 7.7 g/dL Low 13.0 - 18.0 g/dL [facility] Hemoglobin (Bld) [Mass/Vol] 8 g/dL Low 13.0 - 18.0 g/dL [facility] Hemoglobin (Bld) [Mass/Vol] 6.3 g/dL Critically low 13.0 - 18.0 g/dL [facility] Laboratory - Microbiology an d Antimicrobial susceptibilityon 01-25-2025 A. baumannii DNA EMMANUEL+probe Ql (Unsp spec) Not detected Not Detected [facility] Laboratory - Microbiology an d Antimicrobial susceptibilityOrdered By: Petra Harris on 01-25-2025 C. auris ITS2 gene EMMANUEL+probe Ql (Unsp spec) Not detected Not Detected [facility] Magnesium [Mass/Vol]on 01-25 [facility] No Panel Informationon 01-25 Interpretation and review of laboratory results Normal [facility] Blood Expiration Date [id number] S [facility] Crossmatch interpretation COMP [facility] Dispense Status Transfused [facility] Product Blood Type 9500 [facility] PRODUCT CODE [id number] [facility] Unit ABO O [facility] Unit Number [id number] [facility] Unit RH Negative [facility] Unit Volume 300 mL [facility] Interpretation and review of laboratory results Normal [facility] No Panel InformationOrdered By: Petra Harris on 01-25-2025 Interpretation and review of laboratory results Normal [facility] PT Coag (Bld) [Time]on 01-25 INR Coag (PPP) [Relative time] 1.7 {INR} High 0.9 - 1.1 [facility] Interpretation and review of laboratory results Abnormal [facility] INR Coag (PPP) [Relative time] 1.5 {INR} High 0.9 - 1.1 [facility] Interpretation and review of laboratory results Abnormal [facility] Phosphate [Moles/Vol]on Phosphate [Mass/Vol] 3.9 mg/dL 2.3 - 4 .7 mg/dL [facility] RF videography Hypopharynx a nd Esophagus Views for swallowing function W speech and W barium contrast Juan Carlos 01-25-2025 [facility] RADIOLOGY [facility] RAD[facility]Y [facility] Radiology Study observation (narrative) [facility] RF videography Hypopharynx a nd Esophagus Views for swallowing function W speech and W barium contrast POOrdered By: Sulaiman Harp on 01-25-2025 [facility] Work Phone: aPTT Coag (Bld) [Time]on aPTT Coag (PPP) [Time] s Critically high 20.0 - 3 0.5 s [facility] Interpretation and review of laboratory results Abnormal [facility] aPTT Coag (PPP) [Time] 83.1 s High 20.0 - 30.5 s [facility] Interpretation and review of laboratory results Abnormal [facility] aPTT Coag (PPP) [Time] 47.3 s High 20.0 - 30.5 s [facility] Interpretation and review of laboratory results Abnormal [facility] Basic metabolic 1998 panelon 01-24-2025 Anion gap [Moles/Vol] 12 mmol/L 3 - 13 mmol/L [facility] Calcium [Mass/Vol] 9.3 mg/dL 8.4 - 10. 2 mg/dL [facility] Chloride [Moles/Vol] 100 mmol/L 98 - 10 7 mmol/L [facility] CO2 [Moles/Vol] 26 mmol/L 22 - 29 mmol/L [facility] Creatinine [Mass/Vol] 1.47 mg/dL High 0.72 - 1.25 mg/dL [facility] GFR/1.73 sq M.predicted (S/P/Bld) [Vol rate/Area] 54.6 mL/min Low - PINF [facility] Glucose [Mass/Vol] 77 mg/dL 74 - 100 mg/dL [facility] Interpretation and review of laboratory results Abnormal [facility] Potassium [Moles/Vol] 3.5 mmol/L 3.5 - 5.1 mmol/L [facility] Sodium [Moles/Vol] 138 mmol/L 136 - 145 mmol/L [facility] Urea nitrogen [Mass/Vol] 9 mg/dL 9 - 23 mg/d L [facility] Anion gap [Moles/Vol] 20 mmol/L High 3 - 13 mmol/L [facility] Calcium [Mass/Vol] 10.2 mg/dL 8.4 - 10. 2 mg/dL [facility] Chloride [Moles/Vol] 98 mmol/L 98 - 10 7 mmol/L [facility] CO2 [Moles/Vol] 21 mmol/L Low 22 - 29 mmol/L [facility] Creatinine [Mass/Vol] 3.62 mg/dL High 0.72 - 1.25 mg/dL [facility] GFR/1.73 sq M.predicted (S/P/Bld) [Vol rate/Area] 18.5 mL/min Low - PINF [facility] Glucose [Mass/Vol] 74 mg/dL 74 - 100 mg/dL [facility] Potassium [Moles/Vol] 4 mmol/L 3.5 - 5.1 mmol/L [facility] Sodium [Moles/Vol] 139 mmol/L 136 - 145 mmol/L [facility] Urea nitrogen [Mass/Vol] 27 mg/dL High 9 - 23 mg/d L [facility] CBC panel Auto (Bld)Ordered By: Liseth Granado on 01-24-2025 Erythrocyte distribution width (RBC) [Ratio] 19.4 % High 11.5 - 15.0 % [facility] Hematocrit (Bld) [Volume fraction] 27 % Low 40.0 - 52.0 % [facility] Hemoglobin (Bld) [Mass/Vol] 8 g/dL Low 13.0 - 18.0 g/dL [facility] Interpretation and review of laboratory results Abnormal [facility] MCH (RBC) [Entitic mass] 27.9 pg 26. 0 - 34.0 pg [facility] MCHC (RBC) [Mass/Vol] 29.6 % Low 30.5 - 36.0 % [facility] MCV (RBC) [Entitic vol] 94.1 fL 77.0 - 99.0 fL [facility] Platelet mean volume (Bld) [Entitic vol] 9.2 fL 9.0 - 12.7 fL [facility] Platelets (Bld) [#/Vol] 355 10*3/uL 140 - 440 10*3/uL [facility] RBC (Bld) [#/Vol] 2.87 10*6/uL Low 4.40 - 5.9 0 10*6/uL [facility] WBC (Bld) [#/Vol] 11.5 10*3/uL High 3.6 - 10.7 10*3/uL [facility] Hemoglobin (Bld) [Mass/Vol]o n 01-24-2025 Hematocrit (Bld) [Volume fraction] 23 % Low 40.0 - 52.0 % [facility] Interpretation and review of laboratory results Abnormal [facility] Laboratory - Chemistry and C hemistry - challengeon 01-24-2025 Lactate [Moles/Vol] 0.9 mmol/L 0.5 - 2. 2 mmol/L [facility] Laboratory - Chemistry and C hemistry - challengeOrdered By: Farhat Simons on 01-24-2025 Beta hydroxybutyrate [Mass/Vol] 10.5 mg/dL High NINF - 2.8 mg/dL [facility] Laboratory - Chemistry and C hemistry - challengeOrdered By: Anu Graham on 01-24-2025 Magnesium [Mass/Vol] 2.3 mg/dL 1.6 - 2 .6 mg/dL [facility] Laboratory - Coagulationon 0 01-24-2025 PT Coag (Bld) [Time] 15.1 s High 9.0 - 12.0 s [facility] PT Coag (Bld) [Time] 15.6 s High 9.0 - 12.0 s [facility] Laboratory - Hematology and Cell countson 01-24-2025 Hemoglobin (Bld) [Mass/Vol] 7.3 g/dL Low 13.0 - 18.0 g/dL [facility] Magnesium [Mass/Vol]Ordered By: Anu Graham on 01-24-2025 Interpretation and review of laboratory results Normal [facility] No Panel Informationon 01-24 Interpretation and review of laboratory results Abnormal [facility] Interpretation and review of laboratory results Normal [facility] Interpretation and review of laboratory results Abnormal [facility] Blood Expiration Date S [facility] Crossmatch interpretation COMP [facility] Dispense Status Released from Scripted [facility] Product Blood Type 9500 [facility] PRODUCT CODE [id number] [facility] Unit ABO O [facility] Unit Number [id number] [facility] Unit RH Negative [facility] Volume 300 mL [facility] No Panel InformationOrdered By: Farhat Simons on 01-24-2025 Interpretation and review of laboratory results Abnormal [facility] No Panel InformationOrdered By: Anu Graham on 01-24-2025 [facility] PT Coag (Bld) [Time]on 01-24 INR Coag (PPP) [Relative time] 1.5 {INR} High 0.9 - 1.1 [facility] INR Coag (PPP) [Relative time] 1.5 {INR} High 0.9 - 1.1 [facility] Interpretation and review of laboratory results Abnormal [facility] Phosphate [Moles/Vol]on 12-28 Phosphate [Mass/Vol] 5.1 mg/dL High 2.3 - 4 .7 mg/dL [facility] XR Chest Single viewon 01-24 [facility] RADIOLOGY [facility] RADIOLOGY [facility] Radiology Study observation (narrative) [facility] aPTT Coag (Bld) [Time]on aPTT Coag (PPP) [Time] 33.7 s High 20.0 - 30.5 s [facility] aPTT Coag (Bld) [Time]Ordere d By: Callie Steele on 01-24-2025 aPTT Coag (PPP) [Time] 114.7 s High 20.0 - 30.5 s [facility] Interpretation and review of laboratory results Abnormal [facility] Basic metabolic 1998 panelon 01-23-2025 Anion gap [Moles/Vol] 13 mmol/L 3 - 13 mmol/L [facility] Calcium [Mass/Vol] 9.4 mg/dL 8.4 - 10. 2 mg/dL [facility] Chloride [Moles/Vol] 102 mmol/L 98 - 10 7 mmol/L [facility] CO2 [Moles/Vol] 25 mmol/L 22 - 29 mmol/L [facility] Creatinine [Mass/Vol] 2.34 mg/dL High 0.72 - 1.25 mg/dL [facility] GFR/1.73 sq M.predicted (S/P/Bld) [Vol rate/Area] 31.3 mL/min Low - PINF [facility] Glucose [Mass/Vol] 80 mg/dL 74 - 100 mg/dL [facility] Interpretation and review of laboratory results Abnormal [facility] Potassium [Moles/Vol] 3.4 mmol/L Low 3.5 - 5.1 mmol/L [facility] Sodium [Moles/Vol] 140 mmol/L 136 - 145 mmol/L [facility] Urea nitrogen [Mass/Vol] 22 mg/dL 9 - 23 mg/d L [facility] CBC W Auto Differential pane l (Bld)on 01-23-2025 Basophils (Bld) [#/Vol] 0.1 10*3/uL 0.0 - 0.2 10*3/uL [facility] Basophils/100 WBC (Bld) 1 % 0.0 - 2.0 % [facility] Eosinophils (Bld) [#/Vol] 0.7 10*3/uL High 0.0 - 0.5 10*3/uL [facility] Eosinophils/100 WBC (Bld) 6.8 % High 0.0 - 6.0 % [facility] Erythrocyte distribution width (RBC) [Ratio] 18.8 % High 11.5 - 15.0 % [facility] Hematocrit (Bld) [Volume fraction] 25.3 % Low 40.0 - 52.0 % [facility] Hemoglobin (Bld) [Mass/Vol] 7.9 g/dL Low 13.0 - 18.0 g/dL [facility] Immature granulocytes (Bld) [#/Vol] 0.1 10*3/uL High NINF - 0.1 10*3/uL [facility] Immature granulocytes/100 WBC (Bld) 1.1 % 0.0 - 2.0 % [facility] Interpretation and review of laboratory results Abnormal [facility] Lymphocytes (Bld) [#/Vol] 1.5 10*3/uL 1.0 - 4.3 10*3/uL [facility] Lymphocytes/100 WBC (Bld) 13.7 % Low 15.0 - 45.0 % [facility] MCH (RBC) [Entitic mass] 27.9 pg 26. 0 - 34.0 pg [facility] MCHC (RBC) [Mass/Vol] 31.2 % 30.5 - 36.0 % [facility] MCV (RBC) [Entitic vol] 89.4 fL 77.0 - 99.0 fL [facility] Monocytes (Bld) [#/Vol] 1.5 10*3/uL High 0.0 - 0.9 10*3/uL [facility] Monocytes/100 WBC (Bld) 13.7 % High 5.0 - 13.0 % [facility] Neutrophils (Bld) [#/Vol] 7 10*3/uL 1.8 - 7.5 10*3/uL [facility] Neutrophils/100 WBC (Bld) 63.7 % 38.0 - 82.0 % [facility] Nucleated RBC/100 WBC (Bld) [Ratio] 0 % [facility] Platelet mean volume (Bld) [Entitic vol] 9.4 fL 9.0 - 12.7 fL [facility] Platelets (Bld) [#/Vol] 346 10*3/uL 140 - 440 10*3/uL [facility] RBC (Bld) [#/Vol] 2.83 10*6/uL Low 4.40 - 5.9 0 10*6/uL [facility] WBC (Bld) [#/Vol] 10.9 10*3/uL High 3.6 - 10.7 10*3/uL [facility] Basophils (Bld) [#/Vol] 0.1 10*3/uL 0.0 - 0.2 10*3/uL [facility] Basophils/100 WBC (Bld) 1.1 % 0.0 - 2.0 % [facility] Eosinophils (Bld) [#/Vol] 0.9 10*3/uL High 0.0 - 0.5 10*3/uL [facility] Eosinophils/100 WBC (Bld) 8 % High 0.0 - 6.0 % [facility] Erythrocyte distribution width (RBC) [Ratio] 18.5 % High 11.5 - 15.0 % [facility] Hematocrit (Bld) [Volume fraction] 23.4 % Low 40.0 - 52.0 % [facility] Hemoglobin (Bld) [Mass/Vol] 7.3 g/dL Low 13.0 - 18.0 g/dL [facility] Immature granulocytes (Bld) [#/Vol] 0.1 10*3/uL High NINF - 0.1 10*3/uL [facility] Immature granulocytes/100 WBC (Bld) 1.1 % 0.0 - 2.0 % [facility] Interpretation and review of laboratory results Abnormal [facility] Lymphocytes (Bld) [#/Vol] 1.4 10*3/uL 1.0 - 4.3 10*3/uL [facility] Lymphocytes/100 WBC (Bld) 12.2 % Low 15.0 - 45.0 % [facility] MCH (RBC) [Entitic mass] 27.7 pg 26. 0 - 34.0 pg [facility] MCHC (RBC) [Mass/Vol] 31.2 % 30.5 - 36.0 % [facility] MCV (RBC) [Entitic vol] 88.6 fL 77.0 - 99.0 fL [facility] Monocytes (Bld) [#/Vol] 1.4 10*3/uL High 0.0 - 0.9 10*3/uL [facility] Monocytes/100 WBC (Bld) 12.9 % 5.0 - 13.0 % [facility] Neutrophils (Bld) [#/Vol] 7.2 10*3/uL 1.8 - 7.5 10*3/uL [facility] Neutrophils/100 WBC (Bld) 64.7 % 38.0 - 82.0 % [facility] Nucleated RBC/100 WBC (Bld) [Ratio] 0 % [facility] Platelet mean volume (Bld) [Entitic vol] 9.1 fL 9.0 - 12.7 fL [facility] Platelets (Bld) [#/Vol] 345 10*3/uL 140 - 440 10*3/uL [facility] RBC (Bld) [#/Vol] 2.64 10*6/uL Low 4.40 - 5.9 0 10*6/uL [facility] WBC (Bld) [#/Vol] 11.1 10*3/uL High 3.6 - 10.7 10*3/uL [facility] Hemoglobin (Bld) [Mass/Vol]o n 01-23-2025 Hematocrit (Bld) [Volume fraction] 25.1 % Low 40.0 - 52.0 % [facility] Interpretation and review of laboratory results Abnormal [facility] Laboratory - Chemistry and C hemistry - challengeon 01-23-2025 Glucose [Mass/Vol] 113 mg/dL High 70 - 100 mg/dL [facility] Glucose [Mass/Vol] 92 mg/dL 70 - 100 mg/dL [facility] Magnesium [Mass/Vol] 2.1 mg/dL 1.6 - 2 .6 mg/dL [facility] Laboratory - Coagulationon 0 01-23-2025 aPTT Coag (PPP) [Time] 30.6 s High 20.0 - 30.5 s [facility] INR Coag (PPP) [Relative time] 1.6 {INR} High 0.9 - 1.1 [facility] PT Coag (Bld) [Time] 16.1 s High 9.0 - 12.0 s [facility] PT Coag (Bld) [Time] 20 s High 9.0 - 12.0 s [facility] Laboratory - Hematology and Cell countson 01-23-2025 Hemoglobin (Bld) [Mass/Vol] 7.9 g/dL Low 13.0 - 18.0 g/dL [facility] Magnesium [Mass/Vol]on 01-23 Interpretation and review of laboratory results Normal [facility] No Panel Informationon 01-23 Interpretation and review of laboratory results Abnormal [facility] Interpretation and review of laboratory results Abnormal [facility] Interpretation and review of laboratory results Normal [facility] PT Coag (Bld) [Time]on 01-23 INR Coag (PPP) [Relative time] 2 {INR} High 0.9 - 1.1 [facility] Interpretation and review of laboratory results Abnormal [facility] Phosphate [Moles/Vol]Ordered By: Jenni Romano on 01-23-2025 Interpretation and review of laboratory results Normal [facility] Phosphate [Mass/Vol] 4.5 mg/dL 2.3 - 4 .7 mg/dL [facility] Basic metabolic 1998 panelOr dered By: Nathaly Dobson on 01-22-2025 Anion gap [Moles/Vol] 13 mmol/L 3 - 13 mmol/L [facility] Calcium [Mass/Vol] 9.8 mg/dL 8.4 - 10. 2 mg/dL [facility] Chloride [Moles/Vol] 94 mmol/L Low 98 - 10 7 mmol/L [facility] CO2 [Moles/Vol] 25 mmol/L 22 - 29 mmol/L [facility] Creatinine [Mass/Vol] 4.18 mg/dL High 0.72 - 1.25 mg/dL [facility] GFR/1.73 sq M.predicted (S/P/Bld) [Vol rate/Area] 15.6 mL/min Low - PINF [facility] Glucose [Mass/Vol] 70 mg/dL Low 74 - 100 mg/dL [facility] Interpretation and review of laboratory results Abnormal [facility] Potassium [Moles/Vol] 4.4 mmol/L 3.5 - 5.1 mmol/L [facility] Sodium [Moles/Vol] 132 mmol/L Low 136 - 145 mmol/L [facility] Urea nitrogen [Mass/Vol] 53 mg/dL High 9 - 23 mg/d L [facility] CBC W Auto Differential pane l (Bld)Ordered By: Tiffanie Chand on 01-22-2025 Basophils (Bld) [#/Vol] 0.1 10*3/uL 0.0 - 0.2 10*3/uL [facility] Basophils/100 WBC (Bld) 0.8 % 0.0 - 2.0 % [facility] Eosinophils (Bld) [#/Vol] 0.7 10*3/uL High 0.0 - 0.5 10*3/uL [facility] Eosinophils/100 WBC (Bld) 6.1 % High 0.0 - 6.0 % [facility] Erythrocyte distribution width (RBC) [Ratio] 18.4 % High 11.5 - 15.0 % [facility] Hematocrit (Bld) [Volume fraction] 23.9 % Low 40.0 - 52.0 % [facility] Hemoglobin (Bld) [Mass/Vol] 7.4 g/dL Low 13.0 - 18.0 g/dL [facility] Immature granulocytes (Bld) [#/Vol] 0.1 10*3/uL High NINF - 0.1 10*3/uL [facility] Immature granulocytes/100 WBC (Bld) 1.1 % 0.0 - 2.0 % [facility] Interpretation and review of laboratory results Abnormal [facility] Lymphocytes (Bld) [#/Vol] 1 10*3/uL 1.0 - 4.3 10*3/uL [facility] Lymphocytes/100 WBC (Bld) 9.7 % Low 15.0 - 45.0 % [facility] MCH (RBC) [Entitic mass] 27.5 pg 26. 0 - 34.0 pg [facility] MCHC (RBC) [Mass/Vol] 31 % 30.5 - 36.0 % [facility] MCV (RBC) [Entitic vol] 88.8 fL 77.0 - 99.0 fL [facility] Monocytes (Bld) [#/Vol] 1.5 10*3/uL High 0.0 - 0.9 10*3/uL [facility] Monocytes/100 WBC (Bld) 14.5 % High 5.0 - 13.0 % [facility] Neutrophils (Bld) [#/Vol] 7.2 10*3/uL 1.8 - 7.5 10*3/uL [facility] Neutrophils/100 WBC (Bld) 67.8 % 38.0 - 82.0 % [facility] Nucleated RBC/100 WBC (Bld) [Ratio] 0 % [facility] Platelet mean volume (Bld) [Entitic vol] 8.2 fL Low 9.0 - 12.7 fL [facility] Platelets (Bld) [#/Vol] 292 10*3/uL 140 - 440 10*3/uL [facility] RBC (Bld) [#/Vol] 2.69 10*6/uL Low 4.40 - 5.9 0 10*6/uL [facility] WBC (Bld) [#/Vol] 10.6 10*3/uL 3.6 - 10.7 10*3/uL [facility] CBC W Auto Differential pane l (Bld)on 01-22-2025 Basophils (Bld) [#/Vol] 0.1 10*3/uL 0.0 - 0.2 10*3/uL [facility] Basophils/100 WBC (Bld) 1.1 % 0.0 - 2.0 % [facility] Eosinophils (Bld) [#/Vol] 0.8 10*3/uL High 0.0 - 0.5 10*3/uL [facility] Eosinophils/100 WBC (Bld) 7.9 % High 0.0 - 6.0 % [facility] Erythrocyte distribution width (RBC) [Ratio] 18.6 % High 11.5 - 15.0 % [facility] Hematocrit (Bld) [Volume fraction] 25.1 % Low 40.0 - 52.0 % [facility] Hemoglobin (Bld) [Mass/Vol] 8 g/dL Low 13.0 - 18.0 g/dL [facility] Immature granulocytes (Bld) [#/Vol] 0.1 10*3/uL High NINF - 0.1 10*3/uL [facility] Immature granulocytes/100 WBC (Bld) 0.8 % 0.0 - 2.0 % [facility] Interpretation and review of laboratory results Abnormal [facility] Lymphocytes (Bld) [#/Vol] 1.5 10*3/uL 1.0 - 4.3 10*3/uL [facility] Lymphocytes/100 WBC (Bld) 14.1 % Low 15.0 - 45.0 % [facility] MCH (RBC) [Entitic mass] 27.7 pg 26. 0 - 34.0 pg [facility] MCHC (RBC) [Mass/Vol] 31.9 % 30.5 - 36.0 % [facility] MCV (RBC) [Entitic vol] 86.9 fL 77.0 - 99.0 fL [facility] Monocytes (Bld) [#/Vol] 1.5 10*3/uL High 0.0 - 0.9 10*3/uL [facility] Monocytes/100 WBC (Bld) 14 % High 5.0 - 13.0 % [facility] Neutrophils (Bld) [#/Vol] 6.6 10*3/uL 1.8 - 7.5 10*3/uL [facility] Neutrophils/100 WBC (Bld) 62.1 % 38.0 - 82.0 % [facility] Nucleated RBC/100 WBC (Bld) [Ratio] 0 % [facility] Platelet mean volume (Bld) [Entitic vol] 8.8 fL Low 9.0 - 12.7 fL [facility] Platelets (Bld) [#/Vol] 330 10*3/uL 140 - 440 10*3/uL [facility] [employer] RBC (Bld) [#/Vol] 2.89 10*6/uL Low 4.40 - 5.9 0 10*6/uL [facility] WBC (Bld) [#/Vol] 10.6 10*3/uL 3.6 - 10.7 10*3/uL [facility] Coagulation index TEG Qn (Bl d)Ordered By: Santhosh Acevedo on 01-22-2025 APTEM A10 72 mm High 50 - 70 mm [facility] APTEM A20 75 mm High 50 - 70 mm [facility] Clot angle TEG (Bld) [Angle] 82 High [facility] Clot formation.extrinsic coagulation system activated Rotational TEG (Bld) [Time] 200 s High 43 - 82 s [facility] Clot formation.extrinsic coagulation system activated Rotational TEG (Bld) [Time] 42 s Low 48 - [address] [facility] Clot formation.extrinsic coagulation system activated Rotational TEG (Bld) [Time] 82 High [facility] Clot formation.extrinsic coagulation system activated Rotational TEG (Bld) [Time] 73 mm High 50 - [address] [facility] Clot formation.extrinsic coagulation system activated Rotational TEG (Bld) [Time] 76 mm High 52 - [address] [facility] Clot formation.extrinsic coagulation system activated.fibrinolysis suppressed Rotational TEG (Bld) [Time] 44 s Low 48 - 127 s [facility] Clot formation.extrinsic coagulation system activated.fibrinolysis suppressed Rotational TEG (Bld) [Time] 33 mm [facility] Clot formation.extrinsic coagulation system activated.fibrinolysis suppressed Rotational TEG (Bld) [Time] [address] [facility] Clot formation.extrinsic coagulation system activated.fibrinolysis suppressed Rotational TEG (Bld) [Time] 36 mm High 7 - 24 mm [facility] Clotting time.extrinsic coagulation system activated.fibrinolysis suppressed Rotational TEG (Bld) 232 s High 43 - 82 s [facility] Interpretation and review of laboratory results Abnormal [facility] Maximum clot firmness.extrinsic coagulation system activated.fibrinolysis suppressed Rotational TEG (Bld) [Length] 75 mm High 52 - 70 mm [facility] Hemoglobin (Bld) [Mass/Vol]o n 01-22-2025 Hematocrit (Bld) [Volume fraction] 24.5 % Low 40.0 - 52.0 % [facility] Interpretation and review of laboratory results Abnormal [facility] Hepatic function 2000 panelo n 01-22-2025 Albumin [Mass/Vol] 2.2 g/dL Low 3.5 - 5.0 g/dL [facility] ALP [Catalytic activity/Vol] 274 U/L High 40 - 150 U/L [facility] ALT [Catalytic activity/Vol] 44 U/L High NINF - 40 U/L [facility] AST [Catalytic activity/Vol] 51 U/L High NINF - 34 U/L [facility] Bilirubin [Mass/Vol] 0.9 mg/[facility]/dL [facility] Bilirubin.conjugated [Mass/Vol] 0.7 mg/dL High NINF - 0.5 mg/dL [facility] Protein [Mass/Vol] 7.6 g/dL 6.4 - 8.3 g/dL [facility] Laboratory - Chemistry and C hemistry - challengeon 01-22-2025 Glucose [Mass/Vol] 101 mg/dL High 70 - 100 mg/dL [facility] Glucose [Mass/Vol] 77 mg/dL 70 - 100 mg/dL [facility] Glucose [Mass/Vol] 81 mg/dL 70 - 100 mg/dL [facility] Magnesium [Mass/Vol] 2.6 mg/dL 1.6 - 2 .6 mg/dL [facility] Glucose [Mass/Vol] 82 mg/dL 70 - 100 mg/dL [facility] Laboratory - Coagulationon 0 01-22-2025 aPTT Coag (PPP) [Time] 42.7 s High 20.0 - 30.5 s [facility] INR Coag (PPP) [Relative time] 3.1 {INR} High 0.9 - 1.1 [facility] PT Coag (Bld) [Time] 31 s High 9.0 - 12.0 s [facility] Fibrin D-dimer FEU (PPP) [Mass/Vol] 14.21 mg/L High NINF - 0.50 mg/L [facility] Fibrinogen Coag (PPP) [Mass/Vol] 436 mg/dL High 200 - 400 mg/dL [facility] Laboratory - CoagulationOrde red By: Maggy Lancaster on 01-22-2025 aPTT Coag (PPP) [Time] 48.1 s High 20.0 - 30.5 s [facility] INR Coag (PPP) [Relative time] 5.5 {INR} Critically high 0.9 - 1.1 [facility] PT Coag (Bld) [Time] 52.6 s High 9.0 - 12.0 s [facility] Laboratory - CoagulationOrde red By: Michelle Olmstead on 01-22-2025 PT Coag (Bld) [Time] 75.4 s High 9.0 - 12.0 s [facility] Laboratory - Hematology and Cell countson 01-22-2025 Hemoglobin (Bld) [Mass/Vol] 7.7 g/dL Low 13.0 - 18.0 g/dL [facility] Magnesium [Mass/Vol]on 01-22 Interpretation and review of laboratory results Normal [facility] No Panel Informationon 01-22 Interpretation and review of laboratory results Abnormal [facility] Interpretation and review of laboratory results Abnormal [facility] Blood Expiration Date [id number] [facility] Dispense Status Transfused [facility] Product Blood Type 6200 [facility] PRODUCT CODE [id number] [facility] Unit ABO A [facility] Unit Number [id number] [facility] Unit RH Positive [facility] Unit Volume 209 ml [facility] Interpretation and review of laboratory results Normal [facility] Interpretation and review of laboratory results Normal [facility] Interpretation and review of laboratory results Abnormal [facility] Interpretation and review of laboratory results Abnormal [facility] Interpretation and review of laboratory results Normal [facility] No Panel InformationOrdered By: Maggy Lancaster on 01-22-2025 Interpretation and review of laboratory results Abnormal [facility] PT Coag (Bld) [Time]Ordered By: Michelle Olmstead on 01-22-2025 INR Coag (PPP) [Relative time] 8.1 {INR} Critically high 0.9 - 1.1 [facility] Interpretation and review of laboratory results Abnormal [facility] Phosphate [Moles/Vol]on 12-27 Phosphate [Mass/Vol] 6.8 mg/dL High 2.3 - 4 .7 mg/dL [facility] aPTT Coag (Bld) [Time]on aPTT Coag (PPP) [Time] 46 s High 20.0 - 30.5 s [facility] Basic metabolic 1998 panelOr dered By: Jarred José on 01-21-2025 Anion gap [Moles/Vol] 15 mmol/L High 3 - 13 mmol/L [facility] Calcium [Mass/Vol] 9.9 mg/dL 8.4 - 10. 2 mg/dL [facility] Chloride [Moles/Vol] 96 mmol/L Low 98 - 10 7 mmol/L [facility] CO2 [Moles/Vol] 24 mmol/L 22 - 29 mmol/L [facility] Creatinine [Mass/Vol] 2.99 mg/dL High 0.72 - 1.25 mg/dL [facility] GFR/1.73 sq M.predicted (S/P/Bld) [Vol rate/Area] 23.3 mL/min Low - PINF [facility] Glucose [Mass/Vol] 60 mg/dL Low 74 - 100 mg/dL [facility] Interpretation and review of laboratory results Abnormal [facility] Potassium [Moles/Vol] 4.3 mmol/L 3.5 - 5.1 mmol/L [facility] Sodium [Moles/Vol] 135 mmol/L Low 136 - 145 mmol/L [facility] Urea nitrogen [Mass/Vol] 46 mg/dL High 9 - 23 mg/d L [facility] CBC W Auto Differential pane l (Bld)on 01-21-2025 Basophils (Bld) [#/Vol] 0.1 10*3/uL 0.0 - 0.2 10*3/uL [facility] Basophils/100 WBC (Bld) 1 % 0.0 - 2.0 % [facility] Eosinophils (Bld) [#/Vol] 0.4 10*3/uL 0.0 - 0.5 10*3/uL [facility] Eosinophils/100 WBC (Bld) 3.8 % 0.0 - 6.0 % [facility] Erythrocyte distribution width (RBC) [Ratio] 18.6 % High 11.5 - 15.0 % [facility] Hematocrit (Bld) [Volume fraction] 27.3 % Low 40.0 - 52.0 % [facility] Hemoglobin (Bld) [Mass/Vol] 8.3 g/dL Low 13.0 - 18.0 g/dL [facility] Immature granulocytes (Bld) [#/Vol] 0.1 10*3/uL High NINF - 0.1 10*3/uL [facility] Immature granulocytes/100 WBC (Bld) 1.2 % 0.0 - 2.0 % [facility] Interpretation and review of laboratory results Abnormal [facility] Lymphocytes (Bld) [#/Vol] 1.7 10*3/uL 1.0 - 4.3 10*3/uL [facility] Lymphocytes/100 WBC (Bld) 16.5 % 15.0 - 45.0 % [facility] MCH (RBC) [Entitic mass] 27 pg 26. 0 - 34.0 pg [facility] MCHC (RBC) [Mass/Vol] 30.4 % Low 30.5 - 36.0 % [facility] MCV (RBC) [Entitic vol] 88.9 fL 77.0 - 99.0 fL [facility] Monocytes (Bld) [#/Vol] 1.4 10*3/uL High 0.0 - 0.9 10*3/uL [facility] Monocytes/100 WBC (Bld) 14.3 % High 5.0 - 13.0 % [facility] Neutrophils (Bld) [#/Vol] 6.4 10*3/uL 1.8 - 7.5 10*3/uL [facility] Neutrophils/100 WBC (Bld) 63.2 % 38.0 - 82.0 % [facility] Nucleated RBC/100 WBC (Bld) [Ratio] 0 % [facility] Platelet mean volume (Bld) [Entitic vol] 8.7 fL Low 9.0 - 12.7 fL [facility] Platelets (Bld) [#/Vol] 365 10*3/uL 140 - 440 10*3/uL [facility] RBC (Bld) [#/Vol] 3.07 10*6/uL Low 4.40 - 5.9 0 10*6/uL [facility] WBC (Bld) [#/Vol] 10.1 10*3/uL 3.6 - 10.7 10*3/uL [facility] CBC panel Auto (Bld)Ordered By: Piedad Alvarado on 01-21-2025 Erythrocyte distribution width (RBC) [Ratio] 18.6 % High 11.5 - 15.0 % [facility] Hematocrit (Bld) [Volume fraction] 25.3 % Low 40.0 - 52.0 % [facility] Hemoglobin (Bld) [Mass/Vol] 8 g/dL Low 13.0 - 18.0 g/dL [facility] Interpretation and review of laboratory results Abnormal [facility] MCH (RBC) [Entitic mass] 27.7 pg 26. 0 - 34.0 pg [facility] MCHC (RBC) [Mass/Vol] 31.6 % 30.5 - 36.0 % [facility] MCV (RBC) [Entitic vol] 87.5 fL 77.0 - 99.0 fL [facility] Platelet mean volume (Bld) [Entitic vol] 9.1 fL 9.0 - 12.7 fL [facility] Platelets (Bld) [#/Vol] 353 10*3/uL 140 - 440 10*3/uL [facility] RBC (Bld) [#/Vol] 2.89 10*6/uL Low 4.40 - 5.9 0 10*6/uL [facility] WBC (Bld) [#/Vol] 9.2 10*3/uL 3.6 - 10.7 10*3/uL [facility] Hemoglobin (Bld) [Mass/Vol]o n 01-21-2025 Hematocrit (Bld) [Volume fraction] 22.4 % Low 40.0 - 52.0 % [facility] Interpretation and review of laboratory results Abnormal [facility] Laboratory - Chemistry and C hemistry - challengeon 01-21-2025 Glucose [Mass/Vol] 86 mg/dL 70 - 100 mg/dL [facility] Glucose [Mass/Vol] 92 mg/dL 70 - 100 mg/dL [facility] Glucose [Mass/Vol] 92 mg/dL 70 - 100 mg/dL [facility] Glucose [Mass/Vol] 107 mg/dL High 70 - 100 mg/dL [facility] Glucose [Mass/Vol] 129 mg/dL High 70 - 100 mg/dL [facility] Glucose [Mass/Vol] 67 mg/dL Low 70 - 100 mg/dL [facility] Magnesium [Mass/Vol] 2.5 mg/dL 1.6 - 2 .6 mg/dL [facility] Glucose [Mass/Vol] 74 mg/dL 70 - 100 mg/dL [facility] Laboratory - CoagulationOrde red By: Treva Mcfarland on 01-21-2025 PT Coag (Bld) [Time] 73.5 s High 9.0 - 12.0 s [facility] Laboratory - Hematology and Cell countson 01-21-2025 Hemoglobin (Bld) [Mass/Vol] 7.1 g/dL Low 13.0 - 18.0 g/dL [facility] Magnesium [Mass/Vol]on 01-21 Interpretation and review of laboratory results Normal [facility] No Panel Informationon 01-21 Interpretation and review of laboratory results Normal [facility] Interpretation and review of laboratory results Normal [facility] Interpretation and review of laboratory results Normal [facility] Interpretation and review of laboratory results Abnormal [facility] Interpretation and review of laboratory results Abnormal [facility] Interpretation and review of laboratory results Abnormal [facility] Interpretation and review of laboratory results Normal [facility] PT Coag (Bld) [Time]Ordered By: Treva Mcfarland on 01-21-2025 INR Coag (PPP) [Relative time] 7.9 {INR} Critically high 0.9 - 1.1 [facility] Interpretation and review of laboratory results Abnormal [facility] Phosphate [Moles/Vol]on 12-27 Interpretation and review of laboratory results Abnormal [facility] Phosphate [Mass/Vol] 5.3 mg/dL High 2.3 - 4 .7 mg/dL [facility] Basic metabolic 1998 panelon 01-20-2025 Anion gap [Moles/Vol] 15 mmol/L High 3 - 13 mmol/L [facility] Calcium [Mass/Vol] 9.2 mg/dL 8.4 - 10. 2 mg/dL [facility] Chloride [Moles/Vol] 98 mmol/L 98 - 10 7 mmol/L [facility] CO2 [Moles/Vol] 22 mmol/L 22 - 29 mmol/L [facility] Creatinine [Mass/Vol] 4.31 mg/dL High 0.72 - 1.25 mg/dL [facility] GFR/1.73 sq M.predicted (S/P/Bld) [Vol rate/Area] 15 mL/min Low - PINF [facility] Glucose [Mass/Vol] 68 mg/dL Low 74 - 100 mg/dL [facility] Interpretation and review of laboratory results Abnormal [facility] Potassium [Moles/Vol] 4.8 mmol/L 3.5 - 5.1 mmol/L [facility] Sodium [Moles/Vol] 135 mmol/L Low 136 - 145 mmol/L [facility] Urea nitrogen [Mass/Vol] 91 mg/dL High 9 - 23 mg/d L [facility] Blood type and Crossmatch pa freida (Bld)on 01-20-2025 ABO group Nom (Bld) O [facility] Blood group antibody screen GEL Ql Negative [facility] D Ag Ql (RBC) Negative [facility] CBC W Auto Differential pane l (Bld)Ordered By: Haley Vitale on 01-20-2025 Basophils (Bld) [#/Vol] 0.1 10*3/uL 0.0 - 0.2 10*3/uL [facility] Basophils/100 WBC (Bld) 1.1 % 0.0 - 2.0 % [facility] Eosinophils (Bld) [#/Vol] 0.5 10*3/uL 0.0 - 0.5 10*3/uL [facility] Eosinophils/100 WBC (Bld) 4.5 % 0.0 - 6.0 % [facility] Erythrocyte distribution width (RBC) [Ratio] 18.3 % High 11.5 - 15.0 % [facility] Hematocrit (Bld) [Volume fraction] 21.3 % Low 40.0 - 52.0 % [facility] Hemoglobin (Bld) [Mass/Vol] 6.6 g/dL Critically low 13.0 - 18.0 g/dL [facility] Immature granulocytes (Bld) [#/Vol] 0.1 10*3/uL High NINF - 0.1 10*3/uL [facility] Immature granulocytes/100 WBC (Bld) 1 % 0.0 - 2.0 % [facility] Interpretation and review of laboratory results Abnormal [facility] Lymphocytes (Bld) [#/Vol] 1.2 10*3/uL 1.0 - 4.3 10*3/uL [facility] Lymphocytes/100 WBC (Bld) 11.6 % Low 15.0 - 45.0 % [facility] MCH (RBC) [Entitic mass] 27.4 pg 26. 0 - 34.0 pg [facility] MCHC (RBC) [Mass/Vol] 31 % 30.5 - 36.0 % [facility] MCV (RBC) [Entitic vol] 88.4 fL 77.0 - 99.0 fL [facility] Monocytes (Bld) [#/Vol] 1.1 10*3/uL High 0.0 - 0.9 10*3/uL [facility] Monocytes/100 WBC (Bld) 10.1 % 5.0 - 13.0 % [facility] Neutrophils (Bld) [#/Vol] 7.5 10*3/uL 1.8 - 7.5 10*3/uL [facility] Neutrophils/100 WBC (Bld) 71.7 % 38.0 - 82.0 % [facility] Nucleated RBC/100 WBC (Bld) [Ratio] 0 % [facility] Platelet mean volume (Bld) [Entitic vol] 9 fL 9.0 - 12.7 fL [facility] Platelets (Bld) [#/Vol] 279 10*3/uL 140 - 440 10*3/uL [facility] RBC (Bld) [#/Vol] 2.41 10*6/uL Low 4.40 - 5.9 0 10*6/uL [facility] WBC (Bld) [#/Vol] 10.5 10*3/uL 3.6 - 10.7 10*3/uL [facility] CT Abdomen and Pelvis W cont rast Dimitrios 01-20-2025 [facility] RADIOLOGY [facility] RADIOLOGY [facility] Radiology Study observation (narrative) [facility] CT Abdomen and Pelvis W cont rast IVOrdered By: Karly Parker on 01-20-2025 [facility] Work Phone: Hemoglobin (Bld) [Mass/Vol]o n 01-20-2025 Hematocrit (Bld) [Volume fraction] 25.8 % Low 40.0 - 52.0 % [facility] Interpretation and review of laboratory results Abnormal [facility] Hematocrit (Bld) [Volume fraction] 25.7 % Low 40.0 - 52.0 % [facility] Interpretation and review of laboratory results Abnormal [facility] Hematocrit (Bld) [Volume fraction] 25.8 % Low 40.0 - 52.0 % [facility] Interpretation and review of laboratory results Abnormal [facility] Laboratory - Chemistry and C hemistry - challengeon 01-20-2025 Magnesium [Mass/Vol] 2.8 mg/dL High 1.6 - 2 .6 mg/dL [facility] Laboratory - Hematology and Cell countson 01-20-2025 Hemoglobin (Bld) [Mass/Vol] 8.3 g/dL Low 13.0 - 18.0 g/dL [facility] Hemoglobin (Bld) [Mass/Vol] 8.2 g/dL Low 13.0 - 18.0 g/dL [facility] Hemoglobin (Bld) [Mass/Vol] 8.2 g/dL Low 13.0 - 18.0 g/dL [facility] Magnesium [Mass/Vol]on 01-20 [facility] No Panel Informationon 01-20 Interpretation and review of laboratory results Abnormal [facility] Phosphate [Moles/Vol]on 12-27 Phosphate [Mass/Vol] 6.1 mg/dL High 2.3 - 4 .7 mg/dL [facility] No Panel Informationon 01-19 P [place] 69 degrees [facility] MO Interval 148 ms [facility] QRS [place] 93 degrees [facility] QRSD Interval 113 ms [facility] h QT Interval 413 ms [facility] QTC Interval 515 ms [facility] T Wave [place] 87 degrees [facility] CV EPIPHANY [facility] 4h Troponin HS (Serial 3rd Troponin) 94 ng/L High NINF - 35 ng/L [facility] Interpretation and review of laboratory results Abnormal [facility] 2h Troponin HS (Serial 2nd Troponin) 106 ng/L High NINF - 35 ng/L [facility] Interpretation and review of laboratory results Abnormal [facility] Vital signson 01-19-2025 Heart rate 93 /min bpm [facility] Airwayon 10-12-2024 Rudolph German CRNA 10/12/2024 7:56 AM Airway Date/Time: 10/12/2024 7:38 AM Urgency: scheduled Airway not difficult General Information and Staff Patient location during procedure: Procedural Anesthesiologist: Vincent Wilson MD Resident/FINANCIAL REPORTING ANALYST: Rudolph German CRNA Performed: anesthesiologist Indications and [...] 21 Number of attempts at approach: 1 [facility] Arterial Lineon 10-12-2024 Rudolph German CRNA [...] procedure well with no complications. Staffing Performed: FINANCIAL REPORTING ANALYST Resident/FINANCIAL REPORTING ANALYST: Rudolph German CRNA [facility] Central Venous Lineon 2024 Rudolph German [...] during the procedure: no complications. Staffing Performed: FINANCIAL REPORTING ANALYST Resident/FINANCIAL REPORTING ANALYST: Rudolph German CRNA [facility] No Panel Informationon 10-[address] [facility] [address] Head WO contraston 2024 No acute intracranial hemorrhage or large territorial infarct. Nonspecific small air locules within the scalp adjacent to the right temporal bone and within the right simplex operator space. Pneumatized secretions within the maxillary sinuses may correspond with acute sinusitis in the appropriate clinical setting. Report Dictated on Electronically Signed By: Yvonne Abraham DO Electronically Signed Date/Time: 10/03/2024 2:14 PM EST [facility] [email or web address] Patient Name: JUN SNYDER : 1965 [...] right temporal bone and within the right simplex operator space. [facility] [email or web address] Yvonne Abraham DO - 10/03/2024 Patient [...] right temporal bone and within the right simplex operator space. IMPRESSION: No acute intracranial hemorrhage or large territorial infarct. Nonspecific small air locules within the scalp adjacent to the right temporal bone and within the right simplex operator space. Pneumatized secretions within the maxillary sinuses may correspond with acute sinusitis in the appropriate clinical setting. Report Dictated on Electronically Signed By: Yvonne Abraham DO Electronically Signed Date/Time: 10/03/2024 2:14 PM [facility] Radiology Study observation (narrative) [facility] CT Head WO contrastOrdered B y: Yvonne Abraham on 10-03-2024 [facility] Work Phone: XR Chest Single viewon 10-03 No focal consolidation or pulmonary edema. Report Dictated on Electronically Signed By: Bob Ken MD Electronically Signed Date/Time: 10/03/2024 12:22 PM [employer] RADIOLOGY SYSTEM Patient Name: JUN SNYDER : 1965 [facility] [employer]#: [id number] Exam Date/Time: 10/03/2024 12:12 Procedure: XR CHEST 1 VIEW Ordering Provider: FRANK NISHIT Reason For Exam: CHEST PAIN PORTABLE CHEST CLINICAL INDICATION: CHEST PAIN TECHNIQUE: Portable AP COMPARISON: 08/16/2023 FINDINGS: No focal consolidation or pulmonary edema. No pleural effusions or pneumothorax. The cardiac silhouette is mildly enlarged. The mediastinum is unremarkable. Degenerative change of the thoracic spine is noted. [facility] RADIOLOGY SYSTEM Bob Ken MD - 10/03/2024 [...] Electronically Signed Date/Time: 10/03/2024 12:22 PM EST [facility] Study observation (narrative) [employer] [facility] XR Chest Single viewOrdered By: Bob Ken on 10-03-2024 [facility] Work Phone: ECG 12 leadon 08-28-2024 Sinus Rhythm -Incomplete right bundle branch block. -Left atrial enlargement. Voltage criteria for LVH (S(V1)+R(V6) exceeds 3.50 mV). -ST depression -Seen with left ventricular hypertrophy (strain) -consider ischemia. [employer] CNPNon 04-12-2024 CNPN Telephone (TXCTGL) JUN SNYDER ([id number]) 1965 M Date Time Provider Department 04/12/24 [...] Status:Closed by LANIE LUIS on 04/12/24 [facility] 11-12-2023 Sinus Rhythm -Left atrial enlargement. IRBBB LVH with repolarization ABNORMAL [facility] ECG 12 leadOrdered By: Michaela Coombs on 11-12-2023 [facility] Work Phone: Basic metabolic 1998 panelon 08-17-2023 Anion gap [Moles/Vol] 15 mmol/L High 3 - 13 mmol/L [facility] Calcium [Mass/Vol] 8.7 mg/dL 8.4 - 10. 4 mg/dL [facility] Chloride [Moles/Vol] 94 mmol/L Low 98 - 10 7 mmol/L [facility] CO2 [Moles/Vol] 26 mmol/L 22 - 30 mmol/L [facility] Creatinine [Mass/Vol] 6.78 mg/dL High 0.66 - 1.25 mg/dL [facility] GFR/1.73 sq M.predicted MDRD (S/P/Bld) [Vol rate/Area] 8.8 mL/min/{1.73_m2} Low - PINF [facility] Comment on above: Calculation based on the Chronic Kidney Disease Epidemiology Collaboration (CKD-EPI) equation refit without adjustment for race Glucose [Mass/Vol] 102 mg/dL High 70 - 100 mg/dL [facility] Interpretation and review of laboratory results Abnormal [facility] Potassium [Moles/Vol] 5.0 mmol/L 3.5 - 5.1 mmol/L [facility] Sodium [Moles/Vol] 134 mmol/L Low 135 - 145 mmol/L [facility] Urea nitrogen [Mass/Vol] 46 mg/dL High 9 - 20 mg/d L [facility] Laboratory - Chemistry and C hemistry - challengeon 08-17-2023 Magnesium [Mass/Vol] 2.1 mg/dL 1.6 - 2 .3 mg/dL [facility] TSH Qn 0.981 m[IU]/L [facility] TSH Qn 1.190 m[IU]/L [facility] h Troponin I.cardiac [Mass/Vol] 0.094 ng/mL High NINF - 0.034 ng/mL [facility] Magnesium [Mass/Vol]on 08-17 Interpretation and review of laboratory results Normal [facility] No Panel InformationOrdered By: Ruy Milton on 08-17-2023 P [place] degrees [employer] Work Phone: MO Interval ms [facility] Work Phone: QRS [place] 61 degrees [employer] Work Phone: QRSD Interval 114 ms [facility] [employer] Work Phone: QT Interval 364 ms [facility] Work Phone: QTC Interval 491 ms [facility] Work Phone: T Wave [place] -20 degrees [employer] Work Phone: [employer] Work Phone: No Panel Informationon 08-17 ATRIAL [...] On 08-17-2023 6:57:31 EST by Ruy Milton [facility] TSH Qnon 08-17-2023 Interpretation and review of laboratory results Normal [facility] Interpretation and review of laboratory results Normal [facility] Troponin I.cardiac [Mass/Vol ]on 08-17-2023 Interpretation and review of laboratory results Abnormal [facility] Patients with high levels of Biotin oral intake (ie >5 mg/day) may have falsely decreased Troponin levels. [facility] US Heart TransthoracicOrdere d By: Jr Shah on 08-17-2023 Ao Root Index 1.58 cm/m2 [facility] Work Phone: Aortic Root 3.3 cm [facility] Work Phone: Ascending Aorta 3.[address] [facility] Work Phone: Ascending Aorta Index 1.58 cm/m2 Sum [facility] Work Phone: AV Area by Peak Velocity 1.[address] [facility] Work Phone: AV Area by VTI 1.1 cm2 [facility] Work Phone: AV AT 97.[address] [facility] Work Phone: AV Mean Gradient [address] [facility] Work Phone: AV Mean Velocity 2.7 m/s [facility] Work Phone: AV Peak Gradient [address] [facility] Work Phone: AV Peak Velocity 3.8 m/s [facility] Work Phone: AV Velocity Ratio 0.26 [facility] Work Phone: AV VTI 84.[address] [facility] Work Phone: MALU/BSA Peak Velocity 0.5 cm2/m2 [facility] Work Phone: MALU/BSA VTI 0.5 cm2/m2 [facility] Work Phone: E/E' Lateral 11.44 [facility] Work Phone: E/E' Ratio (Averaged) 13.08 [facility] Work Phone: E/E' Septal 14.71 [facility] Work Phone: EF BP 62 % 55 - 100 % [facility] Work Phone: Est. RA Pressure 0 mmHg [facility] Work Phone: Fractional Shortening 2D 30 % 28 - 44 % [facility] [employer] Work Phone: [phone] Interpretation and review of laboratory results Abnormal [facility] [employer] Work Phone: [phone] IVC Diameter 1.1 cm [facility] Work Phone: [phone] IVSd 1.1 cm Abnormal 0.6 - 1.0 cm [facility] Work Phone: [phone] LA Diameter 4.0 cm [facility] Work Phone: [phone] LA Size Index 1.91 cm/m2 [facility] Work Phone: [phone] LA Volume 2C 66 mL Abnormal 18 - 58 mL [facility] Work Phone: [phone] LA Volume 4C 71 mL Abnormal 18 - 58 mL [facility] Work Phone: [phone] LA Volume A/L 75 mL [facility] Work Phone: [phone] LA Volume BP 69 mL Abnormal 18 - 58 mL [facility] Work Phone: LA Volume Index 2C 32 mL/m2 16 - 34 mL/m2 [facility] Work Phone: LA Volume Index 4C 34 mL/m2 16 - 34 mL/m2 [facility] ma [employer] Work Phone: [phone] LA Volume Index A/L 36 mL/m2 16 - 34 mL/m2 [facility] Work Phone: LA Volume Index BP 33 ml/m2 16 - 34 ml/m2 [facility] ma [employer] Work Phone: LA/AO Root Ratio 1.21 [facility] Work Phone: LV E' Lateral Velocity 9 cm/s [facility] Work Phone: LV E' Septal Velocity 7 cm/s [facility] Work Phone: LV EDV A2C 104 mL [facility] Work Phone: LV EDV A4C 89 mL [facility] Work Phone: LV EDV BP 97 mL 67 - 155 mL [facility] Work Phone: LV EDV Index A2C 50 mL/m2 [facility] Work Phone: LV EDV Index A4C 43 mL/m2 [facility] Work Phone: LV EDV Index BP 46 mL/m2 [facility] Work Phone: LV Ejection Fraction A2C 61 % [facility] [employer] Work Phone: LV Ejection Fraction A4C 64 % [facility] Work Phone: LV ESV A2C 41 mL [facility] Work Phone: LV ESV A4C 32 mL [facility] Work Phone: LV ESV BP 37 mL 22 - 58 mL [facility] Work Phone: LV ESV Index A2C 20 mL/m2 [facility] Work Phone: LV ESV Index A4C 15 mL/m2 [facility] Work Phone: LV ESV Index BP 18 mL/m2 [facility] Work Phone: LV Mass 2D 173.6 g 88 - 224 g [facility] Work Phone: LV Mass 2D Index 83.1 g/m2 49 - 115 g/m2 [facility] Work Phone: LV RWT Ratio 0.56 [facility] Work Phone: LVIDd 4.3 cm 4.2 - 5.9 cm [facility] Work Phone: LVIDd Index 2.06 cm/m2 [facility] Work Phone: LVIDs 3.0 cm [facility] Work Phone: LVIDs Index 1.44 cm/m2 [facility] Work Phone: LVOT Area 4.2 cm2 [facility] Work Phone: LVOT Cardiac Output 7.6 liter/minute [facility] Work Phone: LVOT Diameter 2.3 cm [facility] Work Phone: LVOT Mean Gradient 2 mmHg [facility] Work Phone: LVOT Peak Gradient 4 mmHg [facility] Work Phone: LVOT Peak Velocity 1.0 m/s [facility] Work Phone: LVOT Stroke Volume Index 46.5 mL/m2 [facility] Work Phone: [phone] LVOT SV 97.2 ml [facility] Work Phone: [phone] LVOT VTI 23.4 cm [facility] Work Phone: LVOT:AV VTI Index 0.28 [facility] ealth Work Phone: LVPWd 1.2 cm Abnormal 0.6 - 1.0 cm [facility] Work Phone: MV A Velocity 0.79 m/s [facility] Work Phone: MV Area by PHT 1.9 cm2 [facility] Work Phone: MV E Velocity 1.03 m/s [facility] Work Phone: MV E Wave Deceleration Time 278.6 ms [facility] Work Phone: MV E/A 1.30 [facility] Work Phone: MV Mean Gradient 3 mmHg [facility] Work Phone: MV Peak Gradient 6 mmHg [facility] Work Phone: MV PHT 113.0 ms [facility] Work Phone: RA Area 4C 79.9 mL [facility] Work Phone: RA Area 4C 77.[address] [facility] Work Phone: [phone] RV Basal Dimension 4.[address] [facility] Work Phone: [phone] RV Mid Dimension 3.[address] [facility] Work Phone: [phone] [facility] Work Phone: [phone] Sinotubular Junction 3.0 cm [facility] Work Phone: [phone] TR Max Velocity 2.72 m/s [facility] Work Phone: [phone] TR Peak Gradient [address] [facility] Work Phone: [phone] [facility] Work Phone: [phone] Heart Transthoracicon Aortic Valve: Trileaflet. Moderately [...] on 08-17-2023 Heart rate 109 /min bpm [facility] Work Phone: Basic metabolic 1998 panelon 08-16-2023 Anion gap [Moles/Vol] 15 mmol/L High 3 - 13 mmol/L [employer] [facility] Calcium [Mass/Vol] 9.1 mg/dL 8.4 - 10. 4 mg/dL [employer] [facility] Chloride [Moles/Vol] 93 mmol/L Low 98 - 10 7 mmol/L [employer] [facility] CO2 [Moles/Vol] 25 mmol/L 22 - 30 mmol/L [employer] [facility] Creatinine [Mass/Vol] 6.01 mg/dL High 0.66 - 1.25 mg/dL [employer] [facility] GFR/1.73 sq M.predicted MDRD (S/P/Bld) [Vol rate/Area] 10.2 mL/min/{1.73_m2} Low - PINF [employer] [facility] Comment on above: Calculation based on the Chronic Kidney Disease Epidemiology Collaboration (CKD-EPI) equation refit without adjustment for race Glucose [Mass/Vol] 110 mg/dL High 70 - 100 mg/dL [facility] [facility] Interpretation and review of laboratory results Abnormal [facility] [facility] [facility] Potassium [Moles/Vol] 4.5 mmol/L 3.5 - 5.1 mmol/L [employer] [facility] Sodium [Moles/Vol] 133 mmol/L Low 135 - 145 mmol/L [facility] Urea nitrogen [Mass/Vol] 40 mg/dL High 9 - 20 mg/d L [facility] CBC W Auto Differential pane l (Bld)Ordered By: Aric Montejo on 08-16-2023 Basophils (Bld) [#/Vol] 0.1 10*3/uL 0.0 - 0.2 10*3/uL [facility] Basophils/100 WBC (Bld) 1.3 % 0.0 - 2.0 % [facility] Eosinophils (Bld) [#/Vol] 0.5 10*3/uL 0.0 - 0.5 10*3/uL [facility] Eosinophils/100 WBC (Bld) 5.1 % 1.0 - 6.0 % [facility] Erythrocyte distribution width (RBC) [Ratio] 14.7 % High 11.5 - 14.5 % [facility] Hematocrit (Bld) [Volume fraction] 41.6 % 40.0 - 52.0 % [facility] Hemoglobin (Bld) [Mass/Vol] 14.5 g/dL 13.0 - 18.0 g/dL [facility] Interpretation and review of laboratory results Abnormal [facility] Lymphocytes (Bld) [#/Vol] 1.3 10*3/uL 1.0 - 4.3 10*3/uL [facility] Lymphocytes/100 WBC (Bld) 14.2 % Low 20.0 - 40.0 % [facility] MCH (RBC) [Entitic mass] 31.5 pg 26. 0 - 34.0 pg [facility] MCHC (RBC) [Mass/Vol] 34.8 % 32.0 - 36.0 % [facility] MCV (RBC) [Entitic vol] 90.5 fL 80.0 - 98.0 fL [facility] Monocytes (Bld) [#/Vol] 1.3 10*3/uL High 0.0 - 0.8 10*3/uL [facility] Monocytes/100 WBC (Bld) 13.5 % High 2.0 - 10.0 % [facility] Neutrophils (Bld) [#/Vol] 6.2 10*3/uL 1.8 - 7.0 10*3/uL [facility] Neutrophils/100 WBC (Bld) 65.9 % 40.0 - 80.0 % [facility] Nucleated RBC/100 WBC (Bld) [Ratio] 0.1 % [facility] Platelet mean volume (Bld) [Entitic vol] 7.3 fL Low 7.4 - 12.4 fL [facility] Platelets (Bld) [#/Vol] 254 10*3/uL 140 - 440 10*3/uL [facility] RBC (Bld) [#/Vol] 4.60 10*6/uL 4.40 - 5.9 0 10*6/uL [facility] WBC (Bld) [#/Vol] 9.5 10*3/uL 3.6 - 10.7 10*3/uL [facility] Laboratory - Chemistry and C hemistry - challengeon 08-16-2023 Troponin I.cardiac [Mass/Vol] 0.062 ng/mL [facility]/mL [facility] Troponin I.cardiac [Mass/Vol] 0.037 ng/mL [facility] ng/mL [facility] Troponin I.cardiac [Mass/Vol ]on 08-16-2023 Interpretation and review of laboratory results Abnormal [facility] Patients with high levels of Biotin oral intake (ie >5 mg/day) may have falsely decreased Troponin levels. [facility] Interpretation and review of laboratory results Abnormal [facility] Patients with high levels of Biotin oral intake (ie >5 mg/day) may have falsely decreased Troponin levels. [facility] XR Chest Single viewon 08-16 1. Cardiomegaly. 2. No other acute findings. Report Dictated on Electronically Signed By: Justo Milan MD Electronically Signed Date/Time: 08/16/2023 6:42 PM [facility] Patient Name: JUN SNYDER : 1965 Exam Date/Time: 08/16/2023 18:39 Procedure: XR CHEST 1 VIEW Ordering Provider: GRANADOS SHAYA Reason For Exam: CHEST PAIN CHEST PORTABLE CLINICAL INDICATION: CHEST PAIN TECHNIQUE: Portable chest x-ray(s). COMPARISON: September,. FINDINGS: Mild cardiomegaly, stable. Lungs are grossly clear. No significant vascular congestion. No apparent pneumothorax. Bony thorax grossly unremarkable. [facility] Justo Milan MD - 08/16/2023 [...] Electronically Signed Date/Time: 08/16/2023 6:42 PM EST [facility] Radiology Study observation (narrative) [facility] XR Chest Single viewOrdered By: Justo Milan on 08-16-2023 [facility] Work Phone: POTASSIUM BLDon 12-17-2022 Potassium [Moles/Vol] 7.6 mmol/L Critically high 3.7-5.1 [facility] Comment on above: Order Comment: Dominick richards Type: BLOOD SPECIMEN Ordering Facility: [facility] Address: , , Performed By: #### K 1 #### [facility] CLIA [id number] [address] [place] POT[employer]SIUM BLDon 08-19-2022 Potassium [Moles/Vol] 7.0 mmol/L Critically high 3.7-5.1 [facility] Comment on above: Order Comment: Dominick richards Type: BLOOD SPECIMEN Ordering Facility: [facility] Address: , , Performed By: #### K 1 #### [facility] CLIA [id number] [address] [place] POTASSIUM BLDon 06-16-2022 Potassium [Moles/Vol] 6.3 mmol/L Critically high 3.7-5.1 [facility] Comment on above: Order Comment: Dominick richards Type: BLOOD SPECIMEN Ordering Facility: [facility] Address: , , Performed By: #### K 1 #### [facility] CLIA [id number] [address] OF [facility] Hgb Bld-ncon 05-12-2022 Hemoglobin (Bld) [Mass/Vol] 8.4 g/dL Low 13.0-17.0 [facility] Comment on above: Order Comment: Dominick richards Type: BLOOD SPECIMEN Ordering Facility: [facility] Address: , , Performed By: #### 7 18-7 #### [facility] CLIA [id number] [address] [facility] XA Special Angiography Proce [facility] 09-15-2021 XA Special Angiography Procedure Patient Name: JUN SNYDER Special Procedures ACCESSION EXAM DATE/TIME PROCEDURE ORDERING PROVIDER [id number] 09/15/2021 11:10 EST XA Special Angiography MD [...] and the needle was removed. A 3 Palestinian dilator was advanced over the wire and [...] and Time: 09/15/2021 12:16 Normal [facility] IR DIALYSIS INJ W/ANGIOPLAST Yon 11-22-2020 [...] This was initially converted to a 6 Palestinian sheath and later converted to a 7 Palestinian sheath. Reflux fistulogram for done in several [...] levels with a 6 x 40 mm [place] balloon. This gave minimal improvement. We then exchanged the 6 mm balloon for an 8 x 40 mm [place] balloon. This gave more moderate improvement. At that point we changed the 6 Palestinian sheath to a 7 Palestinian sheath and placed a 9 x 40 [...] site of puncture trauma. With the 7 Palestinian sheath removed pressure was held on the [...] dilation of stenotic lesion as noted above. Semi Driver: PSCB Transcribe Date/Time: Nov 22 2020 2:07P Dictated by : VINCENT DE LA ROSA MD This examination was interpreted and the report reviewed and electronically signed by: VINCENT DE LA ROSA MD on Nov 22 2020 2:13PM EST Normal [facility] XA SPECIAL ANGIOGRAPHY PROCE [facility] 10-17-2020 Patient Name: GLENN SNYDER Special Procedures ACCESSION EXAM DATE/TIME PROCEDURE ORDERING PROVIDER [id number] 10/17/2020 08:27 EST XA Special Angiography MD [...] KEVIN Transcribed Date and Time: 10/17/2020 1:05 [facility] [place] [facility] Incoming Radiology Results From [facility] - 10/17/2020 1:05 PM EST Patient Name: GLENN SNYDER Special Procedures ACCESSION EXAM DATE/TIME PROCEDURE ORDERING PROVIDER [id number] 10/17/2020 08:27 EST XA Special Angiography MD [...] KEVIN Transcribed Date and Time: 10/17/2020 1:05 [facility] [place] [facility]A Special Angiography Procedure Patient Name: GLENN SNYDER Special Procedures ACCESSION EXAM DATE/TIME PROCEDURE ORDERING PROVIDER [id number] 10/17/2020 08:27 EST XA Special Angiography MD [...] and Time: 10/17/2020 1:05 Normal [facility] Basic Metabolic Panelon 08- Anion gap [Moles/Vol] 17 mmol/L Normal 9-18 [facility] Comment on above: Performed By: #### B MP #### [address] [address] Calcium [Mass/Vol] 9.1 mg/dL Normal 8.5-10.2 [facility] Comment on above: Performed By: #### B MP #### [facility] [address] [place], [place] [address] Chloride [Moles/Vol] 100 mmol/L Normal 97-105 [facility] Comment on above: Performed By: #### B MP #### [facility] [address] [place], [place] [address] CO2 Blood 18 mmol/L Low 22-30 [facility] Comment on above: Performed By: #### B MP #### [facility] [address] [place], [place] [address] Creatinine [Mass/Vol] 13.39 mg/dL High 0.73-1.22 [facility] Comment on above: Performed By: #### B MP #### [facility] [address] [place], [place] [address] Glucose [Mass/Vol] 83 mg/dL Normal 74-99 [facility] Comment on above: Result Comment: The [place] Diabetes Association (ADA) provides guidance for cutoff [...] Standards of Medical Care in Diabetes 2016; [place] [employer]. Diabetes Care. 2016;39(Suppl 1). Performed By: #### B MP #### [facility] [address] [place] [address] Potassium [Moles/Vol] 4.8 mmol/L Normal 3.7-5.1 [facility] Comment on above: Performed By: #### B MP #### [facility] [address] [place] [address] Sodium [Moles/Vol] 135 mmol/L Low 136-144 [facility] Comment on above: Performed By: #### B MP #### [facility] [address] [place], [place] [address] Urea nitrogen [Mass/Vol] 61 mg/dL High 9-24 [facility] Comment on above: Performed By: #### B MP #### [facility] [address] [place], [place] [address] Hemogramon 05-10-2020 Erythrocyte distribution width (RBC) [Ratio] 12.7 % Normal 11.6-14.4 [facility] Comment on above: Performed By: #### C BC1 #### [address] [address] Hematocrit (Bld) [Volume fraction] 28.4 % Low 40.1-51.0 [facility] Comment on above: Performed By: #### C BC1 #### [facility] [address] [place], [place] [address] Hemoglobin (Bld) [Mass/Vol] 9.2 g/dL Low 13.7-17.5 [facility] Comment on above: Performed By: #### C BC1 #### [facility] [address] [place], [place] [address] MCH (RBC) [Entitic mass] 30.6 pg Normal 25.7-32.2 [facility] Comment on above: Performed By: #### C BC1 #### [facility] [address] [place], [place] [address] MCHC (RBC) [Mass/Vol] 32.4 % Normal 32.3-36.5 [facility] Comment on above: Performed By: #### C BC1 #### [facility] [address] [place] [address] MCV (RBC) [Entitic vol] 94.4 fL Normal 83.2-95.6 [facility] Comment on above: Performed By: #### C BC1 #### [facility] [address] [place] [address] Platelet mean volume (Bld) [Entitic vol] 10.1 fL Normal 8.7-12.0 [facility] Comment on above: Performed By: #### C BC1 #### [facility] [address] [place], [place] [address] Platelets (Bld) [#/Vol] 278 thou/cmm Normal 141-365 [facility] Comment on above: Performed By: #### C BC1 #### [facility] [address] [place], [place] [address] RBC (Bld) [#/Vol] 3.01 mil/cmm Low 4.63-6.08 [facility] Comment on above: Performed By: #### C BC1 #### [facility] [address] [place], [place] [address] RDW SD 43.8 fl Normal 36.1-45.8 [facility] Comment on above: Performed By: #### C BC1 #### [facility] [address] [place], [place] [address] WBC (Bld) [#/Vol] 8.58 thou/cmm Normal 4.23-9.07 [facility] Comment on above: Performed By: #### C BC1 #### [facility] [address] [place], [place] [address] MDRD GFRon 05-10-2020 GFR/1.73 sq M predicted among non-blacks MDRD (S/P/Bld) [Vol rate/Area] 3.89 mL/min/{1.73_m2} Normal >60mL/min/1.7 3m2 [facility] Comment on above: Result Comment: If t he patient is , multiply the result by 1.210. Performed By: #### G FR #### [facility] [address] [place] [id number] Protimeon 05-10-2020 INR Coag (PPP) [Relative time] 0.98 {INR} Normal 0.90-1.30 [facility] Comment on above: Result Comment: Conchita min K Antagonist (VKA) Therapeutic Range: INR 2 to 3 (Target INR of 2.5) Note: For patients treated with VKA drugs, such as warfarin, the [place] [employer] 2012 Guideline recommends [...] Chest 2012; 141:7S-47S Randall PATTON et al. JACC 2017; 70: 252-289 Performed By: #### P T #### [facility] [address] [place], [place] [address] PT Coag (PPP) [Time] 10.6 s Normal 9.7-13.0 [facility] Comment on above: Performed By: #### P T #### [facility] [address] [place], [place] [address] Rapid, COVID 19on 03-20-2020 Rapid, COVID 19 Negative Normal Negative [facility] Comment on above: Result Comment: This test has been authorized by the FDA under an Emergency Use Authorization (EUA). Performed By: #### R COVD #### [facility] [address] [place] [address] Basic Metabolic Panelon 02-25 Anion gap [Moles/Vol] 14 mmol/L Normal 9-18 [facility] Comment on above: Performed By: #### B MP #### [facility] [address] [place] [address] Calcium [Mass/Vol] 10.0 mg/dL Normal 8.5-10.2 [facility] Comment on above: Performed By: #### B MP #### [facility] [address] [place] [address] Chloride [Moles/Vol] 95 mmol/L Low 97-105 [facility] Comment on above: Performed By: #### B MP #### [place] [address] CO2 Blood 26 mmol/L Normal 22-30 [facility] Comment on above: Performed By: #### B MP #### [place] [address] Creatinine [Mass/Vol] 9.29 mg/dL High 0.73-1.22 [facility] Comment on above: Performed By: #### B MP #### [place] [address] Glucose [Mass/Vol] 84 mg/dL Normal 74-99 [facility] Comment on above: Result Comment: The [place] Diabetes Association (ADA) provides guidance for cutoff [...] Standards of Medical Care in Diabetes 2016; [place] [employer]. Diabetes Care. 2016;39(Suppl 1). Performed By: #### B MP #### [facility] [address] [place], [place] [address] Potassium [Moles/Vol] 3.7 mmol/L Normal 3.7-5.1 [facility] Comment on above: Performed By: #### B MP #### [facility] [address] [place], [place] [address] Sodium [Moles/Vol] 135 mmol/L Low 136-144 [facility] Comment on above: Performed By: #### B MP #### [facility] [address] [place], [place] [address] Urea nitrogen [Mass/Vol] 32 mg/dL High 9-24 [facility] Comment on above: Performed By: #### B MP #### [facility] [address] [place], [place] [address] Hematologyon 03-13-2020 INR Coag (PPP) [Relative time] 0.96 {INR} 0.90 - 1.30 [facility] PT Coag (PPP) [Time] 10.4 s 9.7 - 1 3.0 sec [facility] Hematocrit (Bld) [Volume fraction] 30.6 % Low 40.1 - 51.0 % [facility] Hemoglobin (Bld) [Mass/Vol] 10.8 g/dL Low 13.7 - 17.5 g/dL [facility] MCH (RBC) [Entitic mass] 31.0 pg 25. 7 - 32.2 pg [facility] MCV (RBC) [Entitic vol] 87.9 fL 83.2 - 95.6 fl [facility] Platelets (Bld) [#/Vol] 269 thou/cmm 141 - 365 thou/cmm [facility] RBC (Bld) [#/Vol] 3.48 mil/cmm Low 4.63 - 6.0 8 mil/cmm [facility] WBC (Bld) [#/Vol] 10.79 thou/cmm High 4.23 - 9 .07 thou/cmm [facility] Hemogramon 03-13-2020 Erythrocyte distribution width (RBC) [Ratio] 13.2 % Normal 11.6-14.4 [facility] Comment on above: Performed By: #### C BC1 #### [facility] [address] [place] [address] Hematocrit (Bld) [Volume fraction] 30.6 % Low 40.1-51.0 [facility] Comment on above: Performed By: #### C BC1 #### [facility] [address] [place] [address] Hemoglobin (Bld) [Mass/Vol] 10.8 g/dL Low 13.7-17.5 [facility] Comment on above: Performed By: #### C BC1 #### [facility] [address] [place] [address] MCH (RBC) [Entitic mass] 31.0 pg Normal 25.7-32.2 [facility] Comment on above: Performed By: #### C BC1 #### [facility] [address] [place] [address] MCHC (RBC) [Mass/Vol] 35.3 % Normal 32.3-36.5 [facility] Comment on above: Performed By: #### C BC1 #### [facility] [address] [place] [address] MCV (RBC) [Entitic vol] 87.9 fL Normal 83.2-95.6 [facility] Comment on above: Performed By: #### C BC1 #### [facility] [address] [place] [address] Platelet mean volume (Bld) [Entitic vol] 10.1 fL Normal 8.7-12.0 [facility] Comment on above: Performed By: #### C BC1 #### [facility] [address] [place], [place] [address] Platelets (Bld) [#/Vol] 269 thou/cmm Normal 141-365 [facility] Comment on above: Performed By: #### C BC1 #### [facility] [address] [place], [place] [address] RBC (Bld) [#/Vol] 3.48 mil/cmm Low 4.63-6.08 [facility] Comment on above: Performed By: #### C BC1 #### [facility] [address] [place], [place] [address] RDW SD 42.3 fl Normal 36.1-45.8 [facility] Comment on above: Performed By: #### C BC1 #### [facility] [address] [place], [place] [address] WBC (Bld) [#/Vol] 10.79 thou/cmm High 4.23-9.07 [facility] Comment on above: Performed By: #### C BC1 #### [facility] [address] [place], [place] [address] MDRD GFRon 03-13-2020 GFR/1.73 sq M predicted among non-blacks MDRD (S/P/Bld) [Vol rate/Area] 5.94 mL/min/{1.73_m2} Normal >60mL/min/1.7 3m2 [facility] Comment on above: Result Comment: If t he patient is , multiply the result by 1.210. Performed By: #### G FR #### [facility] [address] [place], [place] [address] Metabolic Panelon 03-13-2020 Anion gap [Moles/Vol] 14 mmol/L 9 - 18 mmol/L [facility] Calcium [Mass/Vol] 10.0 mg/dL 8.5 - 10. 2 mg/dL [facility] Chloride [Moles/Vol] 95 mmol/L Low 97 - 10 5 mmol/L [facility] CO2 [Moles/Vol] 26 mmol/L 22 - 30 mmol/L [facility] Creatinine [Mass/Vol] 9.29 mg/dL High 0.73 - 1.22 mg/dL [facility] Glucose [Mass/Vol] 84 mg/dL 74 - 99 mg/dL [facility] Potassium [Moles/Vol] 3.7 mmol/L 3.7 - 5.1 mmol/L [facility] Sodium [Moles/Vol] 135 mmol/L Low 136 - 144 mmol/L [facility] Urea nitrogen [Mass/Vol] 32 mg/dL High 9 - 24 mg/d L [facility] Otheron 03-13-2020 GFR/1.73 sq M.predicted MDRD (S/P/Bld) [Vol rate/Area] 5.94 mL/min/{1.73_m2} >60mL/min/1.7 3m2 [facility] Erythrocyte distribution width (RBC) [Entitic vol] 42.3 fL 36.1 - 45.8 fl [facility] Erythrocyte distribution width (RBC) [Ratio] 13.2 % 11.6 - 14.4 % [facility] MCHC (RBC) [Mass/Vol] 35.3 % 32.3 - 36.5 % [facility] Platelet mean volume (Bld) [Entitic vol] 10.1 fL 8.7 - 12.0 fl [facility] Protimeon 03-13-2020 INR Coag (PPP) [Relative time] 0.96 {INR} Normal 0.90-1.30 [facility] Comment on above: Result Comment: Conchita min K Antagonist (VKA) Therapeutic Range: INR 2 to 3 (Target INR of 2.5) Note: For patients treated with VKA drugs, such as warfarin, the [place] [employer] 2012 Guideline recommends [...] Chest 2012; 141:7S-47S Randall PATTON et al. JACC 2017; 70: 252-289 Performed By: #### P T #### [place] [address] PT Coag (PPP) [Time] 10.4 s Normal 9.7-13.0 [facility] Comment on above: Performed By: #### P T #### [facility] [address] [place] [address] US VEIN MAPPING UPPER BILon 02-13-2020 US [...] unobstructed. There is no deep venous thrombosis. Semi Driver: PSCB Transcribe Date/Time: Feb 13 2020 4:27P Dictated by : ANALISA GRANADOS MD This examination was interpreted and the report reviewed and electronically signed by: ANALISA GRAANDOS MD on Feb 13 2020 4:30PM EST Normal [facility] Basic Metabolic PanelOrdered By: Darell aSnches on 10-27-2019 Anion gap [Moles/Vol] 18 mmol/L [facility] Work Phone: Calcium [Mass/Vol] 9.2 mg/dL 8.4 - 10. 4 mg/dL [facility] Work Phone: Chloride [Moles/Vol] 93 mmol/L Low 98 - 10 7 mmol/L [facility] Work Phone: [phone] CO2 [Moles/Vol] 24 mmol/L 22 - 30 mmol/L [facility] Work Phone: Creatinine [Mass/Vol] 9.99 mg/dL High 0.52 - 1.25 mg/dL [facility] Work Phone: EGFR IF NonAfrican [place]an 5.5 mL/min >60 [facility] Work Phone: [phone] Comment on above: Source- MDRD equatio n [...] mg/dL High 7 - 20 mg/d L [employer] Work Phone: 1 CBC Auto DifferentialOrdered By: Darell Sanches on 10-27-2019 Absolute Baso # 0.1 10*3/uL 0 - 0.2 10*3/uL [facility] Work Phone: [phone] Absolute Neut # 6.6 10*3/uL 1.8 - 7 10*3/uL [facility] Work Phone: 22 Basophils/100 WBC (Bld) 0.7 % 0 - 2 % [facility] Work Phone: Eosinophils (Bld) [#/Vol] 0.5 10*3/uL 0 - 0.5 10*3/uL [employer] Work Phone: 22 Eosinophils/100 WBC (Bld) 4.9 % 1 - 6 % [employer] Work Phone: Erythrocyte distribution width (RBC) [Ratio] 14.0 % 11.5 - 14.5 % [employer] Work Phone: Granulocytes/100 WBC (Bld) 62.2 % 40 - 80 % [employer] Work Phone: Hematocrit (Bld) [Volume fraction] 28.3 % Low 40 - 52 % [employer] Work Phone: Hemoglobin (Bld) [Mass/Vol] 9.5 g/dL Low 13 - 18 g/dL [employer] Work Phone: Lymphocytes (Bld) [#/Vol] 2.0 10*3/uL 1 - 4.3 10*3/uL [facility] Work Phone: 22 Lymphocytes/100 WBC (Bld) 18.8 % Low 20 - 40 % [facility] Work Phone: MCH (RBC) [Entitic mass] 29.1 pg 26 - 34 pg [employer] Work Phone: 22 MCHC 33.6 % 32 - 36 % [facility] Work Phone: MCV (RBC) [Entitic vol] 86.7 fL 80 - [address] [facility] Work Phone: [phone] Monocytes (Bld) [#/Vol] 1.4 10*3/uL High 0 - 0.8 10*3/uL [facility] Work Phone: 1 Monocytes/100 WBC (Bld) 13.4 % High 2 - 10 % [facility] Work Phone: Platelet mean volume (Bld) [Entitic vol] 8.2 fL 7.4 - 10.4 fL [facility] Work Phone: Platelets (Bld) [#/Vol] 259 10*3/uL 140 - 440 10*3/uL [facility] Work Phone: RBC (Bld) [#/Vol] 3.27 10*6/uL Low 4.4 - 5.9 10*6/uL [facility] Work Phone: 1 WBC (Bld) [#/Vol] 10.6 10*3/uL 3.6 - 10.7 10*3/uL [facility] Work Phone: MAGNESIUMOrdered By: Darell Sanches on 10-27-2019 Magnesium [Mass/Vol] 2.6 mg/dL High 1.6 - 2 .3 mg/dL [facility] Work Phone: No Panel InformationOrdered By: Darell Sanches on 10-27-2019 Interpretation and review of laboratory results Abnormal [facility] Work Phone: Test Performed by [id number] [place] [address] Work Phone: PhosphorusOrdered By: Darell Sanches on 10-27-2019 Phosphate [Mass/Vol] 9.9 mg/dL High 2.5 - 4 .5 mg/dL [facility] Work Phone: Basic Metabolic PanelOrdered By: Darell Sanches on 10-26-2019 Anion gap [Moles/Vol] 14 mmol/L [facility] Work Phone: Calcium [Mass/Vol] 9.0 mg/dL 8.4 - 10. 4 mg/dL [facility] Work Phone: Chloride [Moles/Vol] 94 mmol/L Low 98 - 10 7 mmol/L [facility] Work Phone: [phone] CO2 [Moles/Vol] 29 mmol/L 22 - 30 mmol/L [facility] Work Phone: [phone] Creatinine [Mass/Vol] 7.06 mg/dL High 0.52 - 1.25 mg/dL [facility] Work Phone: 1 EGFR IF NonAfrican [place]an 8.2 mL/min >60 [facility] Work Phone: [phone] Comment on above: Source- MDRD equatio n with creatinine calibration to IDMS(NKDEP) eGFR not recommended for drug dose adjustment GFR/1.73 sq M.predicted among blacks MDRD (S/P/Bld) [Vol rate/Area] 9.9 mL/min/{1.73_m2} >60 [facility] Work Phone: [phone] Glucose [Mass/Vol] 95 mg/dL 70 - 100 mg/dL [facility] Work Phone: Potassium [Moles/Vol] 4.2 mmol/L 3.5 - 5.1 mmol/L [facility] Work Phone: [phone] Sodium [Moles/Vol] 136 mmol/L 135 - 145 mmol/L [facility] Work Phone: [phone] Urea nitrogen [Mass/Vol] 27 mg/dL High 7 - 20 mg/d L [facility] Work Phone: [phone] Auto DifferentialOrdered By: Darell Sanches on 10-26-2019 Absolute Baso # 0.1 10*3/uL 0 - 0.2 10*3/uL [facility] Work Phone: [phone] Absolute Neut # 7.1 10*3/uL High 1.8 - 7 10*3/uL [facility] Work Phone: [phone] Basophils/100 WBC (Bld) 0.8 % 0 - 2 % [facility] Work Phone: [phone] Eosinophils (Bld) [#/Vol] 0.5 10*3/uL 0 - 0.5 10*3/uL [facility] Work Phone: [phone] Eosinophils/100 WBC (Bld) 4.7 % 1 - 6 % [facility] Work Phone: [phone] Erythrocyte distribution width (RBC) [Ratio] 13.9 % 11.5 - 14.5 % [employer] Work Phone: 1 Granulocytes/100 WBC (Bld) 63.9 % 40 - 80 % [employer] Work Phone: Hematocrit (Bld) [Volume fraction] 29.2 % Low 40 - 52 % [employer] Work Phone: 1 Hemoglobin (Bld) [Mass/Vol] 9.9 g/dL Low 13 - 18 g/dL [employer] Work Phone: [phone] Interpretation and review of laboratory results Abnormal [facility] Work Phone: 1 Lymphocytes (Bld) [#/Vol] 2.0 10*3/uL 1 - 4.3 10*3/uL [facility] Work Phone: 1 Lymphocytes/100 WBC (Bld) 17.8 % Low 20 - 40 % [facility] Work Phone: 1 MCH (RBC) [Entitic mass] 29.5 pg 26 - 34 pg [employer] Work Phone: 1 MCHC 33.9 % 32 - 36 % [employer] Work Phone: 1 MCV (RBC) [Entitic vol] 87.0 fL 80 - [address] [facility] Work Phone: Monocytes (Bld) [#/Vol] 1.4 10*3/uL High 0 - 0.8 10*3/uL [facility] Work Phone: 1 Monocytes/100 WBC (Bld) 12.8 % High 2 - 10 % [facility] Work Phone: Platelet mean volume (Bld) [Entitic vol] 8.0 fL 7.4 - 10.4 fL [employer] Work Phone: 1 Platelets (Bld) [#/Vol] 262 10*3/uL 140 - 440 10*3/uL [employer] [employer] Work Phone: RBC (Bld) [#/Vol] 3.36 10*6/uL Low 4.4 - 5.9 10*6/uL [facility] Work Phone: [phone] 22 WBC (Bld) [#/Vol] 11.0 10*3/uL High 3.6 - 10.7 10*3/uL [facility] Work Phone: 1 Test Performed by [employer], [address] [place] [address] Str. [place], [place] [address] [facility] Work Phone: 1 Culture Blood #1Ordered By: Brett Encarnacion on 10-26-2019 Blood Culture, Routine BioFire Film[employer] testing is not routinely performed on Gram positive bacilli. If a Listeria infection is highly suspected, contact the Microbiology laboratory [phone] Abnormal [facility] Work Phone: 1 Blood Culture, Routine Propionibacterium acnes Abnormal [facility] Work Phone: Blood Culture, Routine Isolated: Contamination likely unless additional blood culture sets are found to be positive with the same organism. [facility] Work Phone: 1 Interpretation and review of laboratory results Abnormal [facility] Work Phone: Test Performed by [employer], [address] [place] [id number] Specimen Source Comment:Blood [facility] Work Phone: 1 MAGNESIUMOrdered By: Darell Sanches on 10-26-2019 Magnesium [Mass/Vol] 2.2 mg/dL 1.6 - 2 .3 mg/dL [facility] Work Phone: 1 No Panel InformationOrdered By: Darell Sanches on 10-26-2019 Interpretation and review of laboratory results Abnormal [facility] Work Phone: Test Performed by [employer], [address] [place] [address] Str. [place], [place] [address] [employer] Work Phone: PhosphorusOrdered By: Darell Sanches on 10-26-2019 Phosphate [Mass/Vol] 7.1 mg/dL High 2.5 - 4 .5 mg/dL [facility] Work Phone: 1 US BIOPSY RENAL RIGHT PERCOr dered By: Cindy Patel on 10-26-2019 Patient Name: GLENN SNYDER ---Ultrasound--- Exam Date/Time 10/26/2019 10:57:27 EST Exam US Biopsy Renal Right Ordering Physician MD DA, CINDY MATHEWS Accession Number [id number] CPT4 Codes 68673 (), 36839 () Reason For Exam renal failure Report ULTRASOUND GUIDED RIGHT LOWER POLE KIDNEY BIOPSY Reasons for examination: Acute renal failure. After review of prior studies, patient interview and examination, the risks, benefits, and alternatives of the biopsy procedure were discussed, informed consent was obtained. Portfolio Strategist US scans of the right kidney were [...] RICHARD Transcribed Date and Time: 10/26/2019 12:05 [facility] Work Phone: Mike, [facility] Incoming Radiology Results From [facility] - 10/26/2019 12:05 PM EST Patient Name: GLENN SNYDER ---Ultrasound--- Exam Date/Time 10/26/2019 10:57:27 EST Exam US Biopsy Renal Right Ordering Physician MD DA, CINDY MATHEWS Accession Number [id number] CPT4 Codes 68201 (), 70127 () Reason For Exam renal failure Report ULTRASOUND GUIDED RIGHT LOWER POLE KIDNEY BIOPSY Reasons for examination: Acute renal failure. After review of prior studies, patient interview and examination, the risks, benefits, and alternatives of the biopsy procedure were discussed, informed consent was obtained. Portfolio Strategist US scans of the right kidney were [...] Ordering Physician MD PEDRAZA AZIZ Accession Number [id number] Reason For Exam non tunneled to tunneled cath Report FLUOROSCOPIC AND ULTRASOUND-GUIDED TUNNELED DIALYSIS CATHETER PLACEMENT REMOVAL OF RIGHT INTERNAL JUGULAR TEMPORARY HEMODIALYSIS CATHETER CLINICAL HISTORY: Need for skilled nursing central venous access Fluoroscopy time: Acute renal [...] Phone: Mike, [facility] Incoming Radiology Results From [facility] - 10/26/2019 3:29 PM EST Patient Name: GLENN SNYDERN: [id number] ---Special Procedures--- Exam Date/Time 10/26/2019 15:01:32 EST Exam XA Special Angiography Procedure Ordering Physician MD KEILA, JEANA Accession Number [id number] Reason For Exam non tunneled to tunneled cath Report FLUOROSCOPIC AND ULTRASOUND-GUIDED TUNNELED DIALYSIS CATHETER PLACEMENT REMOVAL OF RIGHT INTERNAL JUGULAR TEMPORARY HEMODIALYSIS CATHETER CLINICAL HISTORY: Need for skilled nursing central venous access Fluoroscopy time: Acute renal [...] RICHARD Transcribed Date and Time: 10/26/2019 3:28 [facility] Work Phone: [phone] Basic Metabolic PanelOrdered By: Darell Sanches on 10-25-2019 Anion gap [Moles/Vol] 15 mmol/L [facility] Work Phone: [phone] Calcium [Mass/Vol] 8.7 mg/dL 8.4 - 10. 4 mg/dL [facility] Work Phone: [phone] Chloride [Moles/Vol] 95 mmol/L Low 98 - 10 7 mmol/L [facility] Work Phone: [phone] CO2 [Moles/Vol] 26 mmol/L 22 - 30 mmol/L [facility] Work Phone: [phone] Creatinine [Mass/Vol] 9.71 mg/dL High 0.52 - 1.25 mg/dL [facility] Work Phone: [phone] EGFR IF NonAfrican [place] 5.7 mL/min >60 [facility] Work Phone: Comment on above: Source- MDRD equatio n with creatinine calibration to IDMS(NKDEP) eGFR not recommended for drug dose adjustment GFR/1.73 sq M.predicted among blacks MDRD (S/P/Bld) [Vol rate/Area] 6.9 mL/min/{1.73_m2} >60 [employer] Work Phone: [phone] Glucose [Mass/Vol] 96 mg/dL 70 - 100 mg/dL [facility] Work Phone: [phone] Potassium [Moles/Vol] 4.3 mmol/L 3.5 - 5.1 mmol/L [facility] Work Phone: [phone] Sodium [Moles/Vol] 135 mmol/L 135 - 145 mmol/L [facility] Work Phone: [phone] Urea nitrogen [Mass/Vol] 39 mg/dL High 7 - 20 mg/d L [employer] Work Phone: [phone] CBC Auto DifferentialOrdered By: Darell Sanches on 10-25-2019 Absolute Baso # 0.1 10*3/uL 0 - 0.2 10*3/uL [employer] Work Phone: [phone] Absolute Neut # 6.7 10*3/uL 1.8 - 7 10*3/uL [employer] Work Phone: [phone] Basophils/100 WBC (Bld) 0.9 % 0 - 2 % [facility] Work Phone: [phone] Eosinophils (Bld) [#/Vol] 0.5 10*3/uL 0 - 0.5 10*3/uL [employer] Work Phone: [phone] Eosinophils/100 WBC (Bld) 4.5 % 1 - 6 % [facility] Work Phone: [phone] Erythrocyte distribution width (RBC) [Ratio] 13.8 % 11.5 - 14.5 % [facility] Work Phone: [phone] Granulocytes/100 WBC (Bld) 60.1 % 40 - 80 % [facility] Work Phone: [phone] Hematocrit (Bld) [Volume fraction] 28.3 % Low 40 - 52 % [facility] Work Phone: [phone] Hemoglobin (Bld) [Mass/Vol] 9.7 g/dL Low 13 - 18 g/dL [facility] Work Phone: [phone] Interpretation and review of laboratory results Abnormal [facility] Work Phone: Lymphocytes (Bld) [#/Vol] 2.6 10*3/uL 1 - 4.3 10*3/uL [employer] Work Phone: [phone] Lymphocytes/100 WBC (Bld) 22.9 % 20 - 40 % [employer] Work Phone: 1 MCH (RBC) [Entitic mass] 30.0 pg 26 - 34 pg [employer] Work Phone: 1 MCHC 34.3 % 32 - 36 % [employer] Work Phone: 1 MCV (RBC) [Entitic vol] 87.3 fL 80 - [address] [facility] Work Phone: 1 Monocytes (Bld) [#/Vol] 1.3 10*3/uL High 0 - 0.8 10*3/uL [employer] Work Phone: 1 Monocytes/100 WBC (Bld) 11.6 % High 2 - 10 % [facility] Work Phone: 1 Platelet mean volume (Bld) [Entitic vol] 8.1 fL 7.4 - 10.4 fL [employer] Work Phone: 1 Platelets (Bld) [#/Vol] 252 10*3/uL 140 - 440 10*3/uL [employer] Work Phone: 1 RBC (Bld) [#/Vol] 3.24 10*6/uL Low 4.4 - 5.9 10*6/uL [employer] Work Phone: WBC (Bld) [#/Vol] 11.2 10*3/uL High 3.6 - 10.7 10*3/uL [employer] Work Phone: 1 Test Performed by [facility], [address] [place] [address] [facility] Work Phone: MAGNESIUMOrdered By: Darell Sanches on 10-25-2019 Magnesium [Mass/Vol] 2.2 mg/dL 1.6 - 2 .3 mg/dL [facility] Work Phone: 1 No Panel InformationOrdered By: Darell Sacnhes on 10-25-2019 Interpretation and review of laboratory results Abnormal [facility] Work Phone: [phone] Test Performed by [facility] [employer] [facility], [address] [place], [place] [address] [facility] Work Phone: PhosphorusOrdered By: Darell Sanches on 10-25-2019 Phosphate [Mass/Vol] 9.3 mg/dL High 2.5 - 4 .5 mg/dL [facility] Work Phone: [phone] APTTOrdered By: Cindy Patel on 10-24-2019 aPTT Coag (Bld) [Time] 28.5 s 20 - 30.5 s [facility] Work Phone: Comment on above: NOTE: The therapeuti c time for Heparin anticoagulation, based on Xa activity inhibition, is an APTT of 46-80 seconds. Basic Metabolic PanelOrdered By: Darell Sanches on 10-24-2019 Anion gap [Moles/Vol] 10 mmol/L [facility] Work Phone: [phone] Calcium [Mass/Vol] 8.6 mg/dL 8.4 - 10. 4 mg/dL [facility] Work Phone: Chloride [Moles/Vol] 94 mmol/L Low 98 - 10 7 mmol/L [facility] Work Phone: CO2 [Moles/Vol] 31 mmol/L High 22 - 30 mmol/L [facility] Work Phone: Creatinine [Mass/Vol] 7.11 mg/dL High 0.52 - 1.25 mg/dL [facility] Work Phone: [phone] EGFR IF NonAfrican [place] 8.1 mL/min >60 [facility] Work Phone: Comment on above: Source- MDRD equatio n with creatinine calibration to IDMS(NKDEP) eGFR not recommended for drug dose adjustment GFR/1.73 sq M.predicted among blacks MDRD (S/P/Bld) [Vol rate/Area] 9.8 mL/min/{1.73_m2} >60 [facility] Work Phone: 1 Glucose [Mass/Vol] 93 mg/dL 70 - 100 mg/dL [facility] Work Phone: Potassium [Moles/Vol] 4.1 mmol/L 3.5 - 5.1 mmol/L [facility] Work Phone: [phone] Sodium [Moles/Vol] 135 mmol/L 135 - 145 mmol/L [facility] Work Phone: [phone] Urea nitrogen [Mass/Vol] 28 mg/dL High 7 - 20 mg/d L [employer] Work Phone: [phone] CBC Auto DifferentialOrdered By: Darell Sanches on 10-24-2019 Absolute Baso # 0.1 10*3/uL 0 - 0.2 10*3/uL [facility] Work Phone: [phone] Absolute Neut # 6.2 10*3/uL 1.8 - 7 10*3/uL [employer] Work Phone: [phone] Basophils/100 WBC (Bld) 0.7 % 0 - 2 % [facility] Work Phone: [phone] Eosinophils (Bld) [#/Vol] 0.4 10*3/uL 0 - 0.5 10*3/uL [employer] Work Phone: 1 Eosinophils/100 WBC (Bld) 3.7 % 1 - 6 % [employer] Work Phone: [phone] Erythrocyte distribution width (RBC) [Ratio] 14.0 % 11.5 - 14.5 % [employer] Work Phone: [phone] Granulocytes/100 WBC (Bld) 63.8 % 40 - 80 % [employer] Work Phone: [phone] Hematocrit (Bld) [Volume fraction] 27.0 % Low 40 - 52 % [employer] [employer] Work Phone: [phone] Hemoglobin (Bld) [Mass/Vol] 9.2 g/dL Low 13 - 18 g/dL [facility] [employer] Work Phone: [phone] Interpretation and review of laboratory results Abnormal [employer] Work Phone: [phone] Lymphocytes (Bld) [#/Vol] 1.8 10*3/uL 1 - 4.3 10*3/uL [facility] Work Phone: [phone] Lymphocytes/100 WBC (Bld) 18.8 % Low 20 - 40 % [employer] Work Phone: [phone] MCH (RBC) [Entitic mass] 29.6 pg 26 - 34 pg [facility] Work Phone: 1 MCHC 34.1 % 32 - 36 % [facility] Work Phone: MCV (RBC) [Entitic vol] 86.9 fL 80 - 98 fL [facility] Work Phone: 1 Monocytes (Bld) [#/Vol] 1.3 10*3/uL High 0 - 0.8 10*3/uL [facility] Work Phone: 1 Monocytes/100 WBC (Bld) 13.0 % High 2 - 10 % [facility] Work Phone: Platelet mean volume (Bld) [Entitic vol] 8.4 fL 7.4 - 10.4 fL [facility] Work Phone: Platelets (Bld) [#/Vol] 245 10*3/uL 140 - 440 10*3/uL [facility] Work Phone: RBC (Bld) [#/Vol] 3.10 10*6/uL Low 4.4 - 5.9 10*6/uL [facility] Work Phone: WBC (Bld) [#/Vol] 9.7 10*3/uL 3.6 - 10.7 10*3/uL [facility] Work Phone: Culture Blood #1Ordered By: Brett Encarnacion on 10-24-2019 Blood Culture, Routine No growth at 5 days. [facility] Work Phone: Test Performed by [employer] [address] Specimen Source Comment:Blood [facility] Work Phone: Glomerular Basement Membrane (GBM) Antibody IgGOrdered By: Randolph Liz on 10-24-2019 GBM Ab, IgG (IFA) Negative Negative NA [facility] Work Phone: Comment on above: INTERPRETIVE INFORMA [...] biopsy. Test developed and characteristics determined by Monitoring [facility]. See Compliance Statement D: [employer]/CS Performed by [facility], [address] [facility] [address] [email or web address], Malvin Slade MD, Lab. Director MAGNESIUMOrdered By: Darell Sanches on 10-24-2019 Magnesium [Mass/Vol] 2.1 mg/dL 1.6 - 2 .3 mg/dL [facility] Work Phone: [phone] Panel InformationOrdered By: Darell Sanhces on 10-24-2019 Interpretation and review of laboratory results Abnormal [facility] Work Phone: [phone] Test Performed by [facility], [facility] [address] [place], [place] [id number] [place], [place] [address]A Work Phone: Test Performed by [facility], [facility] [address], [place] [id number] [place], [place] [address]A Work Phone: PhosphorusOrdered By: Darell Sanches on 10-24-2019 Phosphate [Mass/Vol] 5.8 mg/dL High 2.5 - 4 .5 mg/dL [facility] Work Phone: [phone] Protime-INROrdered By: Darren Patel on 10-24-2019 INR Coag (PPP) [Relative time] 1.1 {INR} [facility] Work Phone: [phone] Comment on above: Recommended Anticoag ulant Therapy: [...] [Time] 11.4 s 9 - 12 s [facility] Work Phone: [phone] Comment on above: . Basic Metabolic PanelOrdered By: Darell Sanches on 10-23-2019 Anion gap [Moles/Vol] 17 mmol/L [facility] Work Phone: [phone] Calcium [Mass/Vol] 8.6 mg/dL 8.4 - 10. 4 mg/dL [facility] Work Phone: [phone] Chloride [Moles/Vol] 94 mmol/L Low 98 - 10 7 mmol/L [facility] Work Phone: [phone] CO2 [Moles/Vol] 24 mmol/L 22 - 30 mmol/L [facility] Work Phone: [phone] Creatinine [Mass/Vol] 11.03 mg/dL High 0.52 - 1.25 mg/dL [facility] Work Phone: [phone] EGFR IF NonAfrican [place]an 4.9 mL/min >60 [facility] Work Phone: [phone] Comment on above: Source- MDRD equatio n with creatinine calibration to IDMS(NKDEP) eGFR not recommended for drug dose adjustment GFR/1.73 sq M.predicted among blacks MDRD (S/P/Bld) [Vol rate/Area] 5.9 mL/min/{1.73_m2} >60 [facility] Work Phone: [phone] Glucose [Mass/Vol] 97 mg/dL 70 - 100 mg/dL [facility] Work Phone: [phone] Potassium [Moles/Vol] 3.9 mmol/L 3.5 - 5.1 mmol/L [facility] Work Phone: [phone] Sodium [Moles/Vol] 135 mmol/L 135 - 145 mmol/L [facility] Work Phone: [phone] Urea nitrogen [Mass/Vol] 61 mg/dL High 7 - 20 mg/d L [facility] Work Phone: [phone] CBC Auto DifferentialOrdered By: Darell Sanches on 10-23-2019 Absolute Baso # 0.1 10*3/uL 0 - 0.2 10*3/uL [facility] Work Phone: [phone] Absolute Neut # 7.1 10*3/uL High 1.8 - 7 10*3/uL [facility] Work Phone: [phone] Basophils/100 WBC (Bld) 1.0 % 0 - 2 % S [facility] Work Phone: [phone] Eosinophils (Bld) [#/Vol] 0.5 10*3/uL 0 - 0.5 10*3/uL [employer] Work Phone: [phone] Eosinophils/100 WBC (Bld) 4.7 % 1 - 6 % [employer] Work Phone: [phone] Erythrocyte distribution width (RBC) [Ratio] 13.8 % 11.5 - 14.5 % [employer] Work Phone: [phone] Granulocytes/100 WBC (Bld) 65.3 % 40 - 80 % [employer] Work Phone: [phone] Hematocrit (Bld) [Volume fraction] 27.6 % Low 40 - 52 % [facility] Work Phone: [phone] Hemoglobin (Bld) [Mass/Vol] 9.5 g/dL Low 13 - 18 g/dL [facility] Work Phone: [phone] Interpretation and review of laboratory results Abnormal [facility] Work Phone: [phone] Lymphocytes (Bld) [#/Vol] 1.9 10*3/uL 1 - 4.3 10*3/uL [facility] Work Phone: [phone] Lymphocytes/100 WBC (Bld) 17.3 % Low 20 - 40 % [facility] Work Phone: [phone] MCH (RBC) [Entitic mass] 29.7 pg 26 - 34 pg [employer] Work Phone: [phone] MCHC 34.3 % 32 - 36 % [facility] Work Phone: [phone] MCV (RBC) [Entitic vol] 86.6 fL 80 - [address] [facility] Work Phone: [phone] Monocytes (Bld) [#/Vol] 1.3 10*3/uL High 0 - 0.8 10*3/uL [employer] Work Phone: [phone] Monocytes/100 WBC (Bld) 11.7 % High 2 - 10 % [facility] Work Phone: [phone] Platelet mean volume (Bld) [Entitic vol] 7.7 fL 7.4 - 10.4 fL [employer] Work Phone: Platelets (Bld) [#/Vol] 248 10*3/uL 140 - 440 10*3/uL [facility] Work Phone: 1 RBC (Bld) [#/Vol] 3.18 10*6/uL Low 4.4 - 5.9 10*6/uL [facility] Work Phone: 1 WBC (Bld) [#/Vol] 10.8 10*3/uL High 3.6 - 10.7 10*3/uL [facility] Work Phone: [address] [facility], [facility] [address] [place], [place] [id number] [place], [place] [address]A Work Phone: MAGNESIUMOrdered By: Darell Sanches on 10-23-2019 Magnesium [Mass/Vol] 2.1 mg/dL 1.6 - 2 .3 mg/dL [facility] Work Phone: No Panel InformationOrdered By: Darell Sanches on 10-23-2019 Interpretation and review of laboratory results Abnormal [facility] Work Phone: 1 Test Performed by [facility], [address] [place] [address] Str. [place], [place] [id number] [place], [place] [address]A Work Phone: PhosphorusOrdered By: Darell Sanches on 10-23-2019 Phosphate [Mass/Vol] 9.5 mg/dL High 2.5 - 4 .5 mg/dL [facility] Work Phone: 1 Basic Metabolic PanelOrdered By: Delon Jessica on 10-22-2019 Anion gap [Moles/Vol] 14 mmol/L [facility] Work Phone: Calcium [Mass/Vol] 8.9 mg/dL 8.4 - 10. 4 mg/dL [facility] Work Phone: Chloride [Moles/Vol] 95 mmol/L Low 98 - 10 7 mmol/L [facility] Work Phone: CO2 [Moles/Vol] 28 mmol/L 22 - 30 mmol/L [facility] Work Phone: Creatinine [Mass/Vol] 8.75 mg/dL High 0.52 - 1.25 mg/dL [facility] Work Phone: [phone] IF NonAfrican Ugandan 6.4 mL/min >60 [employer] Work Phone: [phone] Comment on above: Source- MDRD equatio n with creatinine calibration to IDMS(NKDEP) eGFR not recommended for drug dose adjustment GFR/1.73 sq M.predicted among blacks MDRD (S/P/Bld) [Vol rate/Area] 7.7 mL/min/{1.73_m2} >60 [facility] Work Phone: Glucose [Mass/Vol] 94 mg/dL 70 - 100 mg/dL [facility] Work Phone: Potassium [Moles/Vol] 4.3 mmol/L 3.5 - 5.1 mmol/L [employer] Work Phone: [phone] Sodium [Moles/Vol] 137 mmol/L 135 - 145 mmol/L [employer] Work Phone: [phone] Urea nitrogen [Mass/Vol] 53 mg/dL High 7 - 20 mg/d L [employer] Work Phone: [phone] CBC Auto DifferentialOrdered By: Delon Jessica on 10-22-2019 Absolute Baso # 0.1 10*3/uL 0 - 0.2 10*3/uL [employer] Work Phone: [phone] Absolute Neut # 5.9 10*3/uL 1.8 - 7 10*3/uL [employer] Work Phone: [phone] Basophils/100 WBC (Bld) 0.9 % 0 - 2 % [facility] Work Phone: [phone] Eosinophils (Bld) [#/Vol] 0.3 10*3/uL 0 - 0.5 10*3/uL [employer] Work Phone: [phone] Eosinophils/100 WBC (Bld) 3.0 % 1 - 6 % [employer] Work Phone: [phone] Erythrocyte distribution width (RBC) [Ratio] 14.2 % 11.5 - 14.5 % [employer] Work Phone: [phone] Granulocytes/100 WBC (Bld) 63.0 % 40 - 80 % [employer] Work Phone: [phone] Hematocrit (Bld) [Volume fraction] 27.7 % Low 40 - 52 % [facility] Work Phone: 1 Hemoglobin (Bld) [Mass/Vol] 9.4 g/dL Low 13 - 18 g/dL [facility] Work Phone: 1 Interpretation and review of laboratory results Abnormal [facility] Work Phone: 1 Lymphocytes (Bld) [#/Vol] 1.6 10*3/uL 1 - 4.3 10*3/uL [facility] Work Phone: 1 Lymphocytes/100 WBC (Bld) 17.2 % Low 20 - 40 % [employer] Work Phone: 1 MCH (RBC) [Entitic mass] 29.3 pg 26 - 34 pg [facility] Work Phone: MCHC 33.8 % 32 - 36 % [facility] Work Phone: MCV (RBC) [Entitic vol] 86.7 fL 80 - [address] [facility] Work Phone: Monocytes (Bld) [#/Vol] 1.5 10*3/uL High 0 - 0.8 10*3/uL [facility] Work Phone: 1 Monocytes/100 WBC (Bld) 15.9 % High 2 - 10 % [facility] Work Phone: Platelet mean volume (Bld) [Entitic vol] 8.0 fL 7.4 - 10.4 fL [employer] Work Phone: Platelets (Bld) [#/Vol] 264 10*3/uL 140 - 440 10*3/uL [facility] Work Phone: RBC (Bld) [#/Vol] 3.20 10*6/uL Low 4.4 - 5.9 10*6/uL [facility] Work Phone: WBC (Bld) [#/Vol] 9.3 10*3/uL 3.6 - 10.7 10*3/uL [facility] Work Phone: Test Performed by [employer], [address] [place] [address]. [place], [place] [address] [facility] Work Phone: Calcium, IonizedOrdered By: Delon Jessica on 10-22-2019 Interpretation and review of laboratory results Abnormal [facility] Work [facility]: Ionized Ca 4.20 mg/dL Low 4.3 - 5.2 mg/dL [facility] Work Phone: 1 pH (Bld) 7.43 [pH] [facility] Work Phone: 1 Test Performed by [employer], [facility] [address] [place], [place] [address] [facility] Work Phone: FOLATEOrdered By: Earlene deluna on 10-22-2019 Folate 9.2 ng/mL 2.8 - 20 ng/mL [facility] Work Phone: Glomerular Basement Membrane (GBM) Antibody IgGOrdered By: Jeana Pedraza on 10-22-2019 GBM Ab, IgG (IFA) Negative Negative NA [facility] Work Phone: Comment on above: INTERPRETIVE [...] biopsy. Test developed and characteristics determined by [facility]. See Compliance Statement D: [employer]/ Performed by [facility], [address] [place] [address] [email or web address], Malvin Slade MD, Lab. Director Iron and TIBCOrdered By: Al Irving on 10-22-2019 Interpretation and review of laboratory results Abnormal [facility] Work Phone: Iron [Mass/Vol] 64 ug/dL 49 - 181 ug/dL [facility] Work Phone: Sat 27 % 15 - 50 % [facility] Work Phone: TIBC 234 ug/dL Low 261 - 497 ug/dL [facility] Work Phone: Test Performed by [employer], [address] [address] [employer] Work Phone: MagnesiumOrdered By: Delon Jessica on 10-22-2019 Magnesium [Mass/Vol] 2.0 mg/dL 1.6 - 2 .3 mg/dL [facility] Work Phone: No Panel InformationOrdered By: Earlene Irving on 10-22-2019 Test Performed by [facility], [address] [place], [place] [address]A Work Phone: 1 No Panel InformationOrdered By: Delon Jessica on 10-22-2019 Interpretation and review of laboratory results Abnormal [facility] Work Phone: Test Performed by [facility], [address] [place], [place] [address]A Work Phone: PhosphorusOrdered By: Patrick Jessica on 10-22-2019 Phosphate [Mass/Vol] 8.7 mg/dL High 2.5 - 4 .5 mg/dL [facility] Work Phone: T4, FREEOrdered By: Earlene toure on 10-22-2019 Free T4 [Mass/Vol] 1.16 ng/dL 0.78 - 2. 19 ng/dL [facility] Work Phone: Test Performed by [facility], [address] [place], [place] [address]A Work Phone: TSH without ReflexOrdered By : Earlene Irving on 10-22-2019 TSH 0.836 u[IU]/mL 0.465 - 4.68 u[IU]/mL [facility] Work Phone: Test Performed by [facility], [address] [place], [place] [address]A Work Phone: VL RENAL ARTERIAL DUPLEX COM PLETEOrdered By: Brett Encarnacion on 10-22-2019 [facility] Renal Artery Duplex Ordering Physician: Brett Encarnacion Prize Jacker: Laura Walsh Interpreting Physician: Luciano Shannon Location: [facility] Indications: Hypertension. Smoking history. Acute Kidney Injury [...] supine position. Images were obtained using a Linktone E9 vascular ultrasound machine. The abdominal aorta, [...] + Kidney le (more content not included)... [employer] Work Phone: [facility], [facility] Incoming Cardiology Results From Tia[facility] - 10/22/2019 3:01 PM EST [facility] Renal Artery Duplex Ordering Physician: Brett Encarnacion Prize Jacker: Laura Walsh Interpreting Physician: Luciano Shannon Location: [facility] Indications: Hypertension. Smoking history. Acute Kidney Injury [...] supine position. Images were obtained using a Linktone E9 vascular ultrasound machine. The abdominal aorta, [...] Luciano Shannon 10/22/2019 15:01 [facility] Work Phone: [phone] Vitamin H48Rybwcda By: Akin Irving on 10-22-2019 Cobalamin (Vitamin B12) [Mass/Vol] 959 pg/mL High 239 - 931 pg/mL [facility] Work Phone: [phone] Interpretation and review of laboratory results Abnormal [facility] Work Phone: [phone] Basic Metabolic PanelOrdered By: Delon Jessica on 10-21-2019 Anion gap [Moles/Vol] 16 mmol/L [facility] Work Phone: [phone] Calcium [Mass/Vol] 8.7 mg/dL 8.4 - 10. 4 mg/dL [facility] Work Phone: [phone] Chloride [Moles/Vol] 94 mmol/L Low 98 - 10 7 mmol/L [facility] Work Phone: [phone] CO2 [Moles/Vol] 25 mmol/L 22 - 30 mmol/L [facility] Work Phone: [phone] Creatinine [Mass/Vol] 11.16 mg/dL High 0.52 - 1.25 mg/dL [facility] Work Phone: [phone] EGFR IF NonAfrican Ugandan 4.8 mL/min >60 [facility] Work Phone: [phone] Comment on above: Source- MDRD equatio n with creatinine calibration to IDMS(NKDEP) eGFR not recommended for drug dose adjustment GFR/1.73 sq M.predicted among blacks MDRD (S/P/Bld) [Vol rate/Area] 5.8 mL/min/{1.73_m2} >60 [facility] Work Phone: [phone] Glucose [Mass/Vol] 103 mg/dL High 70 - 100 mg/dL [facility] Work Phone: [phone] Potassium [Moles/Vol] 4.9 mmol/L 3.5 - 5.1 mmol/L [facility] Work Phone: 1 Sodium [Moles/Vol] 135 mmol/L 135 - 145 mmol/L [facility] Work Phone: Urea nitrogen [Mass/Vol] 83 mg/dL High 7 - 20 mg/d L [employer] Work Phone: 1 CBC Auto DifferentialOrdered By: Delon Jessica on 10-21-2019 Absolute Baso # 0.1 10*3/uL 0 - 0.2 10*3/uL [employer] Work Phone: 1 Absolute Neut # 6.4 10*3/uL 1.8 - 7 10*3/uL [employer] Work Phone: 1 Basophils/100 WBC (Bld) 0.9 % 0 - 2 % [facility] Work Phone: Eosinophils (Bld) [#/Vol] 0.2 10*3/uL 0 - 0.5 10*3/uL [employer] Work Phone: Eosinophils/100 WBC (Bld) 2.5 % 1 - 6 % [employer] Work Phone: 1 Erythrocyte distribution width (RBC) [Ratio] 14.8 % High 11.5 - 14.5 % [employer] Work Phone: Granulocytes/100 WBC (Bld) 64.7 % 40 - 80 % [employer] Work Phone: Hematocrit (Bld) [Volume fraction] 27.6 % Low 40 - 52 % [employer] Work Phone: Hemoglobin (Bld) [Mass/Vol] 9.7 g/dL Low 13 - 18 g/dL [employer] Work Phone: Comment on above: Post Transfusion Interpretation and review of laboratory results Abnormal [employer] Work Phone: Lymphocytes (Bld) [#/Vol] 1.8 10*3/uL 1 - 4.3 10*3/uL [employer] Work Phone: Lymphocytes/100 WBC (Bld) 18.5 % Low 20 - 40 % [employer] Work Phone: MCH (RBC) [Entitic mass] 30.0 pg 26 - 34 pg [employer] Work Phone: 1 MCHC 35.3 % 32 - 36 % [employer] Work Phone: 1 MCV (RBC) [Entitic vol] 84.8 fL 80 - 98 fL [facility] Work Phone: 1 Monocytes (Bld) [#/Vol] 1.3 10*3/uL High 0 - 0.8 10*3/uL [employer] Work Phone: 1 Monocytes/100 WBC (Bld) 13.4 % High 2 - 10 % [facility] Work Phone: 1 Platelet mean volume (Bld) [Entitic vol] 7.8 fL 7.4 - 10.4 fL [facility] Work Phone: 1 Platelets (Bld) [#/Vol] 299 10*3/uL 140 - 440 10*3/uL [facility] Work Phone: RBC (Bld) [#/Vol] 3.25 10*6/uL Low 4.4 - 5.9 10*6/uL [facility] Work Phone: 1 WBC (Bld) [#/Vol] 9.8 10*3/uL 3.6 - 10.7 10*3/uL [facility] Work Phone: 1 Test Performed [place] [address] [facility] Work Phone: Calcium, IonizedOrdered By: Delon Jessica on 10-21-2019 Interpretation and review of laboratory results Abnormal [facility] Work Phone: 1 Ionized Ca 4.10 mg/dL Low 4.3 - 5.2 mg/dL [facility] Work Phone: pH (Bld) 7.41 [pH] [facility] Work Phone: Test Performed by [employer], [address] [place], [place] [address] Work Phone: MagnesiumOrdered By: Delon Jessica on 10-21-2019 Magnesium [Mass/Vol] 1.9 mg/dL 1.6 - 2 .3 mg/dL [facility] Work Phone: [phone] No Panel InformationOrdered By: Delon Jessica on 10-21-2019 Interpretation and review of laboratory results Abnormal [facility] Work Phone: [phone] Test Performed by [employer], [address] [place], [place] [address] [employer] Work Phone: [phone] PERIPHERAL BLOOD SMEAR, PATH REVIEWOrdered By: Jeana Pedraza on 10-21-2019 Peripheral Smear see below [employer] Work Phone: [phone] Comment on above: See report under Fredy gical Pathology. Test Performed by [employer], [address] [place], [place] [address] [facility] Work Phone: [phone] PhosphorusOrdered By: Patrick Jessica on 10-21-2019 Phosphate [Mass/Vol] 9.2 mg/dL High 2.5 - 4 .5 mg/dL [facility] Work Phone: [phone] US RETROPERITONEAL COMPLETEO rdered By: Randolph Liz on 10-21-2019 Patient Name: GLENN SNYDER ---Ultrasound--- Exam Date/Time 10/21/2019 15:32:01 EST Exam US Retroperitoneal Complete Ordering Physician [id number] Accession Number [id number] CPT4 Codes 44973 () Reason For Exam blossom Report US [...] Phone: Mike, [facility] Incoming Radiology Results From [facility] - 10/21/2019 7:32 PM EST Patient Name: GLENN SNYDER ---Ultrasound--- Exam Date/Time 10/21/2019 15:32:01 EST Exam US Retroperitoneal Complete Ordering Physician RANDOLPH PALAFOX Accession Number [id number] CPT4 Codes 62113 () Reason For Exam blossom Report US [...] Ordering Physician MD ENCARNACION MATTHEW Accession Number [id number] CPT4 Codes 87811 () Reason For Exam vomiting Report ABDOMEN [...] WENDELL Transcribed Date and Time: 10/21/2019 6:30 [facility] Work Phone: Mike, [facility] Incoming Radiology Results From [facility] - 10/21/2019 6:30 PM EST Patient Name: GLENN SNYDER ---Diagnostic Radiology--- Exam Date/Time 10/21/2019 18:02:19 EST Exam CR Abdomen AP Ordering Physician MD ENCARNACION MATTHEW Accession Number [id number] CPT4 Codes 04155 () Reason For Exam vomiting Report ABDOMEN [...] WENDELL Transcribed Date and Time: 10/21/2019 6:30 [facility] Work Phone: ANAOrdered By: Jeana Pedraza on 10-20-2019 CIARAN TITER <1:40 <1:40 {titer} [facility] Work Phone: Test Performed by [employer], [address] [place] [address] [facility] Work Phone: Anti-Neutrophilic Cytoplasmi c AntibodyOrdered By: Jeana Pedraza on 10-20-2019 C-ANCA Not detected Not-Detected {titer} [facility] Work Phone: 1 p-ANCA Titer Not detected Not-Detected {titer} [facility] Work Phone: 1 Test Performed by [facility] [address] [address] [facility] Work Phone: 1 Basic Metabolic PanelOrdered By: Brett Encarnacion on 10-20-2019 Anion gap [Moles/Vol] 15 mmol/L [facility] Work Phone: Calcium [Mass/Vol] 8.4 mg/dL 8.4 - 10. 4 mg/dL [facility] Work Phone: 1 Chloride [Moles/Vol] 94 mmol/L Low 98 - 10 7 mmol/L [facility] Work Phone: CO2 [Moles/Vol] 26 mmol/L 22 - 30 mmol/L [facility] Work Phone: Creatinine [Mass/Vol] 9.4 mg/dL High 0.52 - 1.25 mg/dL [facility] Work Phone: EGFR IF NonAfrican Ugandan 5.9 mL/min >60 [facility] Work Phone: Comment on above: Source- MDRD equatio n with creatinine calibration to IDMS(NKDEP) eGFR not recommended for drug dose adjustment GFR/1.73 sq M.predicted among blacks MDRD (S/P/Bld) [Vol rate/Area] 7.1 mL/min/{1.73_m2} >60 [facility] Work Phone: Glucose [Mass/Vol] 110 mg/dL High 70 - 100 mg/dL [facility] Work Phone: Interpretation and review of laboratory results Abnormal [facility] Work Phone: Potassium [Moles/Vol] 4.0 mmol/L 3.5 - 5.1 mmol/L [facility] Work Phone: Sodium [Moles/Vol] 135 mmol/L 135 - 145 mmol/L [facility] Work Phone: Urea nitrogen [Mass/Vol] 76 mg/dL High 7 - 20 mg/d L [facility] Work Phone: 1 Test Performed by [employer], [address] [place], [place] [id number] [place], [place] [address]A Work Phone: Basic Metabolic PanelOrdered By: Delon Jessica on 10-20-2019 Anion gap [Moles/Vol] 18 mmol/L [facility] Work Phone: 1 Calcium [Mass/Vol] 7.9 mg/dL Low 8.4 - 10. 4 mg/dL [facility] Work Phone: Chloride [Moles/Vol] 95 mmol/L Low 98 - 10 7 mmol/L [facility] Work Phone: CO2 [Moles/Vol] 24 mmol/L 22 - 30 mmol/L [facility] Work Phone: Creatinine [Mass/Vol] 13.53 mg/dL High 0.52 - 1.25 mg/dL [facility] Work Phone: EGFR IF NonAfrican Ugandan 3.9 mL/min >60 [facility] Work Phone: Comment on above: Source- MDRD equatio n with creatinine calibration to IDMS(NKDEP) eGFR not recommended for drug dose adjustment GFR/1.73 sq M.predicted among blacks MDRD (S/P/Bld) [Vol rate/Area] 4.7 mL/min/{1.73_m2} >60 [facility] Work Phone: Glucose [Mass/Vol] 102 mg/dL High 70 - 100 mg/dL [facility] Work Phone: Interpretation and review of laboratory results Abnormal [facility] Work Phone: Potassium [Moles/Vol] 4.7 mmol/L 3.5 - 5.1 mmol/L [facility] Work Phone: Sodium [Moles/Vol] 136 mmol/L 135 - 145 mmol/L [facility] Work Phone: Urea nitrogen [Mass/Vol] 123 mg/dL High 7 - 20 mg/d L [facility] Work Phone: Test Performed by [employer], [address] [place], [place] [address] [employer] Work Phone: [phone] Auto DifferentialOrdered By: Delon Jessica on 10-20-2019 Absolute Baso # 0.0 10*3/uL 0 - 0.2 10*3/uL [facility] Work Phone: Absolute Neut # 6.2 10*3/uL 1.8 - 7 10*3/uL [facility] Work Phone: 22 Basophils/100 WBC (Bld) 0.4 % 0 - 2 % [facility] Work Phone: Eosinophils (Bld) [#/Vol] 0.1 10*3/uL 0 - 0.5 10*3/uL [employer] Work Phone: Eosinophils/100 WBC (Bld) 1.1 % 1 - 6 % [facility] Work Phone: Erythrocyte distribution width (RBC) [Ratio] 13.4 % 11.5 - 14.5 % [employer] Work Phone: Granulocytes/100 WBC (Bld) 69.5 % 40 - 80 % [facility] Work Phone: Hematocrit (Bld) [Volume fraction] 19.3 % Low 40 - 52 % [employer] Work Phone: Hemoglobin (Bld) [Mass/Vol] 6.6 g/dL Critically low 13 - 18 g/dL [employer] Work Phone: Interpretation and review of laboratory results Abnormal [employer] Work Phone: Lymphocytes (Bld) [#/Vol] 1.6 10*3/uL 1 - 4.3 10*3/uL [facility] Work Phone: 22 Lymphocytes/100 WBC (Bld) 18.3 % Low 20 - 40 % [facility] Work Phone: MCH (RBC) [Entitic mass] 29.4 pg 26 - 34 pg [facility] Work Phone: MCHC 34.1 % 32 - 36 % [facility] Work Phone: MCV (RBC) [Entitic vol] 86.2 fL 80 - 98 fL S [facility] Work Phone: [phone] Monocytes (Bld) [#/Vol] 1.0 10*3/uL High 0 - 0.8 10*3/uL [employer] Work Phone: Monocytes/100 WBC (Bld) 10.7 % High 2 - 10 % [facility] Work Phone: 1 Platelet mean volume (Bld) [Entitic vol] 7.4 fL 7.4 - 10.4 fL [employer] Work Phone: 1 Platelets (Bld) [#/Vol] 267 10*3/uL 140 - 440 10*3/uL [employer] Work Phone: RBC (Bld) [#/Vol] 2.24 10*6/uL Low 4.4 - 5.9 10*6/uL [facility] Work Phone: 1 WBC (Bld) [#/Vol] 9.0 10*3/uL 3.6 - 10.7 10*3/uL [facility] Work Phone: Calcium, IonizedOrdered By: Delon Jessica on 10-20-2019 Interpretation and review of laboratory results Abnormal [facility] Work Phone: Ionized Ca 3.80 mg/dL Low 4.3 - 5.2 mg/dL [facility] Work Phone: pH (Bld) 7.41 [pH] [facility] Work Phone: Test Performed by [employer], [address] [place] [address]. [place] [address] [facility] Work Phone: Hemoglobin and Hematocrit, B loodOrdered By: Brett Encarnacion on 10-20-2019 Hematocrit (Bld) [Volume fraction] 25.2 % Low 40 - 52 % [facility] Work Phone: Hemoglobin (Bld) [Mass/Vol] 9.0 g/dL Low 13 - 18 g/dL [facility] Work Phone: 1 Interpretation and review of laboratory results Abnormal [facility] Work Phone: 1 Test Performed by [employer], [address] [place] [address] [facility] Work Phone: 1 Hemoglobin and Hematocrit, B loodOrdered By: Delon Jessica on 10-20-2019 Hematocrit (Bld) [Volume fraction] 19.6 % Low 40 - 52 % [facility] Work Phone: Hemoglobin (Bld) [Mass/Vol] 6.7 g/dL Critically low 13 - 18 g/dL [facility] Work Phone: Interpretation and review of laboratory results Abnormal [facility] Work Phone: Test Performed by [employer], [address] [place] [address] [facility] Work Phone: Laboratory - Blood bankOrder ed By: Delon Jessica on 10-20-2019 ABO and Rh group Nom (Bld) 9500 [facility] Work Phone: MagnesiumOrdered By: Delon Jessica on 10-20-2019 Magnesium [Mass/Vol] 1.8 mg/dL 1.6 - 2 .3 mg/dL [facility] Work Phone: No Panel InformationOrdered By: Delon Jessica on 10-20-2019 Test Performed by [facility], [address] [place], [place] [address] Work Phone: Test Performed by [facility], [address] [place], [place] [address] Work Phone: PREPARE RBC (CROSSMATCH), 2 UnitsOrdered By: Delon Jessica on 10-20-2019 Blood product unit ID (Dose) [#] [id number] [facility] Work Phone: Blood product unit ID (Dose) [#] [id number] [facility] Work Phone: Dispense Status Blood Bank transfused [facility] Work Phone: Expiration Date [id number] [facility] Work Phone: Product Code Blood Bank [id number] [facility] Work Phone: [facility] Work Phone: PhosphorusOrdered By: Patrick Jessica on 10-20-2019 Interpretation and review of laboratory results Abnormal [facility] Work Phone: [phone] Phosphate [Mass/Vol] 12.3 mg/dL High 2.5 - 4 .5 mg/dL [facility] Work Phone: [phone] RBC MORPHOLOGYOrdered By: Caleb Jessica on 10-20-2019 Hypochromia Slight [facility] Work Phone: [phone] Poikilocytes Slight [facility] Work Phone: [phone] RBC morphology finding Nom (Bld) ABNORMAL [facility] Work Phone: [phone] Surgical PathologyOrdered By : Jeana Pedraza on 10-20-2019 Surgical Pathology Report SEE BELOW [facility] Work Phone: [phone] [id number] [facility] PATHOLOGY AND LABORATORY MEDICINE [address] [place] [address] FINAL PERIPHERAL BLOOD REPORT NAME: GLENN SNYDER : 1965 53 Y M BILLING NO.: [id number] LOCATION: [place] [address] PROCEDURE 10/19/2019 DATE: SURGEON: JEANA PEDRAZA MD RECEIVED DATE: 10/20/2019 ATTENDING BRETT ENCARNACION REPORT DATE: 10/20/2019 : COPIES TO: DIAGNOSIS: NORMOCYTIC ANEMIA WITH ANISOCYTOSIS, INCLUDING SCHISTOCYTES AND MILD AGGLUTINATION, RULE OUT ANEMIA OF CHRONIC INFLAMMATION/RENAL DISEASE, IRON/NUTRITIONAL DEFICIENCIES, COAGULOPATHY AND/OR PARAPROTEINEMIA NO BLASTS OR DYSGRANULOPOIESIS IS SEEN. MAKE UP ARTIST/MAKE UP ARTIST Signature> YOHANNES DIAL M.D. CLINICAL INFORMATION: Peripheral [...] characteristics determined by the clinical laboratories of [employer]. They have not been cleared by the [...] specimens. DEPARTMENT OF PATHOLOGY AND LABORATORY MEDICINE [place], [place] [address] [facility] Work Phone: Add On Lab TestOrdered By: Michelle Encarnacion on 10-19-2019 Add On Rejected [facility] Work Phone: Test Performed by [employer], [address] [place], [place] [address] [facility] Work Phone: Add On Lab TestOrdered By: Cecil Nieves on 10-19-2019 Add On Accepted [facility] Work Phone: Comment on above: Specimen available & acceptable for analysis. Test Performed by [employer], [address], [place], [place] [address] [facility] Work Phone: [phone] Add On Accepted [facility] Work [facility]: 1 Comment on above: Specimen available & acceptable for analysis. Test Performed by [employer], [address] [place], [place] [address] [facility] Work Phone: [phone] Basic Metabolic PanelOrdered By: Brett Encarnacion on 10-19-2019 Anion gap [Moles/Vol] 20 mmol/L [facility] Work Phone: 1 Calcium [Mass/Vol] 8.4 mg/dL 8.4 - 10. 4 mg/dL [facility] Work Phone: Chloride [Moles/Vol] 96 mmol/L Low 98 - 10 7 mmol/L [facility] Work Phone: 1 CO2 [Moles/Vol] 18 mmol/L Low 22 - 30 mmol/L [facility] Work Phone: 1 Creatinine [Mass/Vol] 12.26 mg/dL High 0.52 - 1.25 mg/dL [facility] Work Phone: EGFR IF NonAfrican [place] 4.3 mL/min >60 [facility] Work Phone: Comment on above: Source- MDRD equatio n with creatinine calibration to IDMS(NKDEP) eGFR not recommended for drug dose adjustment GFR/1.73 sq M.predicted among blacks MDRD (S/P/Bld) [Vol rate/Area] 5.2 mL/min/{1.73_m2} >60 [facility] Work Phone: [phone] Glucose [Mass/Vol] 109 mg/dL High 70 - 100 mg/dL [facility] Work Phone: [phone] Interpretation and review of laboratory results Abnormal [facility] Work Phone: Potassium [Moles/Vol] 4.4 mmol/L 3.5 - 5.1 mmol/L [facility] Work Phone: 1 Sodium [Moles/Vol] 134 mmol/L Low 135 - 145 mmol/L [facility] Work Phone: 1 Urea nitrogen [Mass/Vol] 118 mg/dL High 7 - 20 mg/d L [employer] Work Phone: 1 Test Performed by [employer], [address] [place], [place] [address] [employer] Work Phone: Blood Occult Stool Screen #1 Ordered By: Callie Nieves on 10-19-2019 Hemoglobin.gastrointesti nal Ql (Stl) Negative Negative NA [employer] Work Phone: Test Performed by [employer], [address] [place], [place] [address] [employer] Work Phone: C3 ComplementOrdered By: Nadia Pedraza on 10-19-2019 [employer] 115 mg/dL 85 - 165 mg/dL [facility] Work Phone: C4 ComplementOrdered By: Nadiamatt Pedraza on 10-19-2019 C4 Complement 37 mg/dL 14 - 44 mg/dL [employer] Work Phone: CBC Auto DifferentialOrdered By: Jeana Pedraza on 10-19-2019 Absolute Baso # 0.0 10*3/uL 0 - 0.2 10*3/uL [employer] Work Phone: Absolute Neut # 7.7 10*3/uL High 1.8 - 7 10*3/uL [employer] Work Phone: Basophils/100 WBC (Bld) 0.1 % 0 - 2 % [facility] Work Phone: Eosinophils (Bld) [#/Vol] 0.0 10*3/uL 0 - 0.5 10*3/uL [employer] Work Phone: 22 Eosinophils/100 WBC (Bld) 0.0 % Low 1 - 6 % [employer] Work Phone: Erythrocyte distribution width (RBC) [Ratio] 13.1 % 11.5 - 14.5 % [facility] Work Phone: Granulocytes/100 WBC (Bld) 93.1 % High 40 - 80 % [facility] Work Phone: Hematocrit (Bld) [Volume fraction] 26.9 % Low 40 - 52 % [facility] Work Phone: 1 Hemoglobin (Bld) [Mass/Vol] 9.1 g/dL Low 13 - 18 g/dL [facility] Work Phone: 1 Interpretation and review of laboratory results Abnormal [facility] Work Phone: 1 Lymphocytes (Bld) [#/Vol] 0.4 10*3/uL Low 1 - 4.3 10*3/uL [employer] Work Phone: 1 Lymphocytes/100 WBC (Bld) 5.1 % Low 20 - 40 % [facility] Work Phone: MCH (RBC) [Entitic mass] 29.2 pg 26 - 34 pg [facility] Work Phone: MCHC 33.8 % 32 - 36 % [facility] Work Phone: MCV (RBC) [Entitic vol] 86.5 fL 80 - [address] [facility] Work Phone: Monocytes (Bld) [#/Vol] 0.1 10*3/uL 0 - 0.8 10*3/uL [employer] Work Phone: Monocytes/100 WBC (Bld) 1.7 % Low 2 - 10 % [facility] Work Phone: Platelet mean volume (Bld) [Entitic vol] 8.0 fL 7.4 - 10.4 fL [facility] Work Phone: Platelets (Bld) [#/Vol] 246 10*3/uL 140 - 440 10*3/uL [facility] Work Phone: RBC (Bld) [#/Vol] 3.11 10*6/uL Low 4.4 - 5.9 10*6/uL [facility] Work Phone: WBC (Bld) [#/Vol] 8.3 10*3/uL 3.6 - 10.7 10*3/uL [employer] Work Phone: 1 Test Performed by [employer], [address] [place], [place] [address] [facility] Work Phone: CT Abdomen Pelvis Wo Contras tOrdered By: Callie Nieves on 10-19-2019 Patient Name: GLENN SNYDER ---CT--- Exam Date/Time 10/19/2019 08:12:[address] Abdomen/Pelvis (No PO, No IV) Ordering Physician DO NIEVES DAVID J Accession Number [id number] CPT4 Codes 68870 (CT Abdomen/Pelvis (No PO, No IV)) Reason [...] bilateral renal atrophy. No urologic calcification. 3. Yjif-cq-htbadggh diverticulosis. No acute diverticulitis. Report Dictated on --- Final --- Dictating Physician: MD BUTCHER ANTHONY J Signed Date and Time: 10/19/2019 8:40 am Signed by: MD HADLEY, ANU Centeno Transcribed Date and Time: 10/19/2019 8:41 [facility] Work Phone: Mike, [facility] 10[facility]/2019 8:42 AM EST Patient Name: GLENN SNYDER ---CT--- Exam Date/Time 10/19/2019 08:12:[address] Abdomen/Pelvis (No PO, No IV) Ordering Physician DO NIEVES DAVID J Accession Number [id number] CPT4 Codes 46675 (CT Abdomen/Pelvis (No PO, No IV)) Reason [...] bilateral renal atrophy. No urologic calcification. 3. Tvwh-pu-aonbzqyi diverticulosis. No acute diverticulitis. Report Dictated on --- Final --- Dictating Physician: MD HADLEY, ANU Centeno Signed Date and Time: 10/19/2019 8:40 am Signed by: MD BUTCHER ANTHONY J Transcribed Date and Time: 10/19/2019 8:41 [facility] Work Phone: [phone] Comprehensive Metabolic Pane lOrdered By: Callie Nieves on 10-19-2019 Albumin [Mass/Vol] 3.9 g/dL 3.5 - 5 g/dL [facility] Work Phone: [phone] ALP [Catalytic activity/Vol] 58 U/L 38 - 126 U/L [facility] Work Phone: [phone] ALT [Catalytic activity/Vol] 27 U/L 13 - 69 U/L [facility] Work Phone: [phone] Anion gap [Moles/Vol] 22 mmol/L [facility] Work Phone: [phone] AST [Catalytic activity/Vol] 41 U/L 15 - 46 U/L [facility] Work Phone: [phone] Bilirubin [Mass/Vol] 0.5 mg/dL 0.2 - 1 .3 mg/dL [facility] Work Phone: Calcium [Mass/Vol] 8.0 mg/dL Low 8.4 - 10. 4 mg/dL [facility] Work Phone: Chloride [Moles/Vol] 106 mmol/L 98 - 10 7 mmol/L [facility] Work Phone: CO2 [Moles/Vol] 8 mmol/L Low 22 - 30 mmol/L [facility] Work Phone: [phone] Creatinine [Mass/Vol] 17.04 mg/dL High 0.52 - 1.25 mg/dL [facility] Work Phone: EGFR IF NonAfrican [place]an 3.0 mL/min >60 [facility] Work Phone: [phone] Comment on above: Source- MDRD equatio n with creatinine calibration to IDMS(NKDEP) eGFR not recommended for drug dose adjustment GFR/1.73 sq M.predicted among blacks MDRD (S/P/Bld) [Vol rate/Area] 3.6 mL/min/{1.73_m2} >60 [facility] Work Phone: [phone] Glucose [Mass/Vol] 93 mg/dL 70 - 100 mg/dL [facility] Work Phone: [phone] Interpretation and review of laboratory results Abnormal [facility] Work Phone: Potassium [Moles/Vol] 6.6 mmol/L Critically high 3.5 - 5.1 mmol/L [facility] Work Phone: Protein [Mass/Vol] 7.1 g/dL 6.3 - 8.2 g/dL [facility] Work Phone: [phone] Sodium [Moles/Vol] 136 mmol/L 135 - 145 mmol/L [facility] Work Phone: Urea nitrogen [Mass/Vol] 179 mg/dL High 7 - 20 mg/d L [facility] Work Phone: [phone] Test Performed by [employer] [id number] [place] [address] Work Phone: [phone] Albumin [Mass/Vol] 4.3 g/dL 3.5 - 5 g/dL [facility] Work Phone: [phone] ALP [Catalytic activity/Vol] 68 U/L 38 - 126 U/L [facility] Work Phone: [phone] ALT [Catalytic activity/Vol] 31 U/L 13 - 69 U/L [facility] Work Phone: [phone] Anion gap [Moles/Vol] 22 mmol/L [facility] Work Phone: AST [Catalytic activity/Vol] 38 U/L 15 - 46 U/L [facility] Work Phone: Bilirubin [Mass/Vol] 0.3 mg/dL 0.2 - 1 .3 mg/dL [facility] Work Phone: [phone] Calcium [Mass/Vol] 8.1 mg/dL Low 8.4 - 10. 4 mg/dL [facility] Work Phone: Chloride [Moles/Vol] 104 mmol/L 98 - 10 7 mmol/L [facility] Work Phone: [phone] CO2 [Moles/Vol] 10 mmol/L Low 22 - 30 mmol/L [facility] Work Phone: [phone] Creatinine [Mass/Vol] 17.95 mg/dL High 0.52 - 1.25 mg/dL [facility] Work Phone: [phone] EGFR IF NonAfrican Ugandan 2.8 mL/min >60 [facility] Work Phone: [phone] Comment on above: Source- MDRD equatio n with creatinine calibration to IDMS(NKDEP) eGFR not recommended for drug dose adjustment GFR/1.73 sq M.predicted among blacks MDRD (S/P/Bld) [Vol rate/Area] 3.4 mL/min/{1.73_m2} >60 [facility] Work Phone: [phone] Glucose [Mass/Vol] 101 mg/dL High 70 - 100 mg/dL [facility] Work Phone: [phone] Interpretation and review of laboratory results Abnormal [facility] Work Phone: [phone] Potassium [Moles/Vol] 7.3 mmol/L Critically high 3.5 - 5.1 mmol/L [facility] Work Phone: [phone] Protein [Mass/Vol] 7.9 g/dL 6.3 - 8.2 g/dL [facility] Work Phone: [phone] Sodium [Moles/Vol] 136 mmol/L 135 - 145 mmol/L [facility] Work Phone: [phone] Urea nitrogen [Mass/Vol] 179 mg/dL High 7 - 20 mg/d L [facility] Work Phone: [phone] Test Performed by [employer], [address] [place] [id number] [place] [address] Work Phone: [phone] EKG 12 Lead - Chest PainOrde red By: Callie Nieves on 10-19-2019 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 : 1965 Requested By: CALLIE NIEVES Order Number: [id number] Reading MD: Hojat Karimian Measurements Intervals [place] Rate: 97 P: 78 MO: 128 QRS: 49 QRSD: 106 T: 83 QT: 376 QTc: 478 Interpretive Statements SINUS RHYTHM LEFT ATRIAL ABNORMALITY INCOMPLETE RIGHT BUNDLE BRANCH BLOCK LEFT VENTRICULAR HYPERTROPHY BORDERLINE PROLONGED QT INTERVAL No previous ECG available for comparison Electronically Signed On 10-19-2019 8:49:06 EST by Alessia Tapia [facility] Work Phone: Mike, [facility] Incoming Cardiology Results From [facility] - 10/19/2019 8:50 AM EST [employer] Test Date: 2019-10-19 Pat Name: Glenn Snyder Department: 2AED Room: 19 Gender: M Nutrition Services Manager: SHAWN : 1965 Requested By: CALLIE NIEVES Order Number: [id number] Reading MD: Alessia Tapia Measurements Intervals [place] Rate: 97 P: 78 MO: 128 QRS: 49 QRSD: 106 T: 83 QT: 376 QTc: 478 Interpretive Statements SINUS RHYTHM LEFT ATRIAL ABNORMALITY INCOMPLETE RIGHT BUNDLE BRANCH BLOCK LEFT VENTRICULAR HYPERTROPHY BORDERLINE PROLONGED QT INTERVAL No previous ECG available for comparison Electronically Signed On 10-19-2019 8:49:06 EST by Brucelaurynju Sohamjevon [facility] Work Phone: HEPATITIS B SURFACE ANTIGENO rdered By: Jeana Pedraza on 10-19-2019 Hepatitis B Surface Ag Not detected Not-D etected [facility] Work Phone: HIV ScreenOrdered By: Adan Encarnacion on 10-19-2019 HIV 1+2 [id number] AG, EIA Non-Reactive Nonreactive [facility] Work Phone: Comment on above: Results obtained [...] # 0.1 10*3/uL 0 - 0.2 10*3/uL [facility] Work Phone: Absolute Neut # 11.3 10*3/uL High 1.8 - 7 10*3/uL [employer] Work Phone: 1 22 Basophils/100 WBC (Bld) 0.6 % 0 - 2 % [facility] Work Phone: Eosinophils (Bld) [#/Vol] 0.2 10*3/uL 0 - 0.5 10*3/uL [facility] Work Phone: 1 22 Eosinophils/100 WBC (Bld) 1.2 % 1 - 6 % [facility] Work Phone: 1 Erythrocyte distribution width (RBC) [Ratio] 13.4 % 11.5 - 14.5 % [employer] Work Phone: 1 Granulocytes/100 WBC (Bld) 80.5 % High 40 - 80 % [employer] Work Phone: 1 Hematocrit (Bld) [Volume fraction] 23.2 % Low 40 - 52 % [employer] Work Phone: Hemoglobin (Bld) [Mass/Vol] 7.8 g/dL Low 13 - 18 g/dL [employer] Work Phone: 1 Interpretation and review of laboratory results Abnormal [employer] Work Phone: 1 Lymphocytes (Bld) [#/Vol] 1.4 10*3/uL 1 - 4.3 10*3/uL [employer] Work Phone: 1 22 Lymphocytes/100 WBC (Bld) 9.8 % Low 20 - 40 % [employer] Work Phone: MCH (RBC) [Entitic mass] 29.4 pg 26 - 34 pg [employer] Work Phone: 1 22 MCHC 33.6 % 32 - 36 % [employer] Work Phone: 1 MCV (RBC) [Entitic vol] 87.4 fL 80 - [address] [facility] Work Phone: Monocytes (Bld) [#/Vol] 1.1 10*3/uL High 0 - 0.8 10*3/uL [employer] Work Phone: 1 22 Monocytes/100 WBC (Bld) 7.9 % 2 - 10 % [facility] Work Phone: 1 Platelet mean volume (Bld) [Entitic vol] 7.6 fL 7.4 - 10.4 fL [facility] Work Phone: 1 Platelets (Bld) [#/Vol] 293 10*3/uL 140 - 440 10*3/uL [facility] Work Phone: RBC (Bld) [#/Vol] 2.66 10*6/uL Low 4.4 - 5.9 10*6/uL [facility] Work Phone: WBC (Bld) [#/Vol] 14.1 10*3/uL High 3.6 - 10.7 10*3/uL [employer] Work Phone: 1 Test Performed by [employer], [address] [place], [place] [address] [facility] Work Phone: Hepatitis C AntibodyOrdered By: Jeana Pedraza on 10-19-2019 Hepatitis C Ab Not detected Not-Detected NA [facility] Work Phone: Comment on above: Patients with DETECT ED Hepatitis C Ab results should have a new specimen submitted for supplemental testing with a Hepatitis C Quantitative RNA assay (viral load), if clinically indicated. MagnesiumOrdered By: Callie shaw on 10-19-2019 Magnesium [Mass/Vol] 2.1 mg/dL 1.6 - 2 .3 mg/dL [facility] Work Phone: Test Performed by [employer], [address] [place], [place] [address] [facility] Work Phone: No Panel InformationOrdered By: Brett Encarnacion on 10-19-2019 Test Performed by [employer], [address] [place] [address] [facility] Work Phone: No Panel InformationOrdered By: Jeana Pedraza on 10-19-2019 Test Performed by [employer], [address] [place], [place] [address] [facility] Work Phone: PROCALCITONINOrdered By: Eldon Encarnacion on 10-19-2019 Interpretation See Below [employer] Work Phone: 1 Comment on above: PCT <0.50 = Low risk of severe sepsis and/or septic shock. PCT >2.00 = High risk of severe sepsis and/or septic shock. Interpretation and review of laboratory results Abnormal [employer] Work Phone: Procalcitonin 0.74 ng/mL Abnormal <0.10 [employer] Work Phone: PhosphorusOrdered By: Callie Nieves on 10-19-2019 Interpretation and review of laboratory results Abnormal [employer] Work Phone: Phosphate [Mass/Vol] 14.8 mg/dL High 2.5 - 4 .5 mg/dL [employer] Work Phone: Test Performed by [employer], [address] [place] [address] [employer] Work Phone: TYPE AND SCREENOrdered By: Cecil Nieves on 10-19-2019 ABO Grouping O [employer] Work Phone: Rh Type Negative [employer] Work Phone: Comment on above: Test Performed by [facility], [address] [place] [address] [address] [facility], [address] [place] [address] [employer] Work Phone: TroponinOrdered By: Callie garcia on 10-19-2019 Interpretation and review of laboratory results Abnormal [facility] Work Phone: Troponin I.cardiac [Mass/Vol] 0.075 ng/mL High 0 - 0.034 ng/mL [facility] Work Phone: Comment on above: . Test Performed by [employer], [address] [place] [address] [employer] Work Phone: UrinalysisOrdered By: Callie Nieves on 10-19-2019 AMORPHOUS CRYSTAL Few Negative /[HPF] [employer] Work Phone: Appearance (U) Clear Clear NA [employer] Work Phone: Bacteria, UA Few Negative /[HPF] [employer] Work Phone: [phone] Bilirubin Urine Negative Negative mg/dL [employer] Work Phone: [phone] Color (U) Colorless Lt. Yellow NA [facility] Work Phone: [phone] Glucose, Ur 200 mg/dL Normal (<70) [facility] Work Phone: [phone] Ketones Ql (U) Negative Negative mg/dL [facility] Work Phone: [phone] LEUKOCYTES, UA Negative Negative Juliana/uL [facility] Work Phone: [phone] Mucous Threads Few Negative /[LPF] [facility] Work Phone: [phone] Nitrite, Urine Negative Negative NA [facility] Work Phone: [phone] Occult Blood,Urine 0.2 mg/dL Negative [facility] Work Phone: [phone] pH (U) 6.0 [pH] [facility] Work Phone: [phone] Protein (U) [Mass/Vol] 200 mg/dL Negative [employer] Work Phone: [phone] RBC, UA 6-10 0 - 2 /[HPF] [facility] Work Phone: [phone] Specific [place], Urine 1.009 S [facility] Work Phone: [phone] Squam Epithel, UA 0-2 3 - 5 /[HPF] [facility] Work Phone: [phone] Urobilinogen, Urine Normal Normal ( 0-1) mg/dL [facility] Work Phone: [phone] WBC, UA 6-10 0 - 5 /[HPF] [facility] Work Phone: [phone] Test Performed by [facility] [facility], [address] [place] [address] [place], [place] [id number] [place] [address] Work Phone: [phone] XR CHEST PORTABLEOrdered By: Brett Encarnacion on 10-19-2019 Patient Name: GLENN SNYDER ---Diagnostic Radiology--- Exam Date/Time 10/19/2019 12:11:06 EST Exam CR Chest Portable Ordering Physician MD ENCARNACION MATTHEW Accession Number [id number] CPT4 Codes 92639 () Reason For Exam line placement/vascath Report [...] RISA Transcribed Date and Time: 10/19/2019 12:56 [facility] Work Phone: Mike, [facility] Incoming Radiology Results From [facility] - 10/19/2019 12:57 PM EST Patient Name: GLENN SNYDER ---Diagnostic Radiology--- Exam Date/Time 10/19/2019 12:11:06 EST Exam CR Chest Portable Ordering Physician MD ENCARNACION MATTHEW Accession Number [id number] CPT4 Codes 99550 () Reason For Exam line placement/vascath Report [...] and Time: 10/19/2019 12:56 [facility] Work Phone: Vital Signs Date Time Vital Sign Value Performing Clinician Angelia sweet 04-17-2025 09:36-0400 Body height 177.8 cm Keiry Solares MD Work Phone: [facility] [employer] 04-17-2025 09:36-0400 Body mass index (BMI) [Ratio] 21.81 kg/m2 Keiry Solares MD Work Phone: [facility] 04-17-2025 09:36-0400 Body temperature 98.01 [degF] Keiry Solares MD Work Phone: [facility] 04-17-2025 09:36-0400 Body weight 68.95 kg Keiry Solares MD Work Phone: [facility] 04-17-2025 09:36-0400 Diastolic blood pressure 88 mm[Hg] Keiry Solares MD Work Phone: [facility] 04-17-2025 09:36-0400 Respiratory rate 18 /min Keiry Solares MD Work Phone: [facility] 04-17-2025 09:36-0400 Systolic blood pressure 113 mm[Hg] Keiry Solares MD Work Phone: [facility] 04-17-2025 09:29-0400 Heart rate 81 /min Keiry Solares MD Work Phone: [facility] 04-17-2025 09:29-0400 SaO2% (BldA) [Mass fraction] 100 % Keiry Solares MD Work Phone: [facility] 04-09-2025 15:00-0400 Body temperature 98.29 [degF] Leilani Aba Work Phone: [facility] 04-09-2025 15:00-0400 Diastolic blood pressure 64 mm[Hg] Leilani Aba Work Phone: [facility] 04-09-2025 15:00-0400 Heart rate 90 /min Leilani Aba Work Phone: [facility] 04-09-2025 15:00-0400 Respiratory rate 16 /min Leilani Aba Work Phone: [facility] 04-09-2025 15:00-0400 SaO2% (BldA) [Mass fraction] 98 % [employer] Work Phone: [facility] 04-09-2025 15:00-0400 Systolic blood pressure 117 mm[Hg] [employer] Work Phone: [facility] 04-09-2025 11:58-0400 Body height 177.8 cm [employer] Work Phone: [facility] 04-09-2025 11:58-0400 Body mass index (BMI) [Ratio] 21.52 kg/m2 [employer] Work Phone: [facility] 04-09-2025 11:58-0400 Body weight 68.04 kg [employer] Work Phone: [facility] 04-05-2025 20:00-0400 Diastolic blood pressure 89 mm[Hg] Dieter Villegas MD Work Phone: [facility] 04-05-2025 20:00-0400 Heart rate 91 /min Dieter Villegas MD Work Phone: [facility] 04-05-2025 20:00-0400 Respiratory rate 16 /min Dieter Villegas MD Work Phone: [facility] 04-05-2025 20:00-0400 SaO2% (BldA) [Mass fraction] 97 % Dieter Villegas MD Work Phone: [facility] 04-05-2025 20:00-0400 Systolic blood pressure 148 mm[Hg] Dieter Villegas MD Work Phone: [facility] 04-05-2025 17:15-0400 Body temperature 97.9 [degF] Dieter Villegas MD Work Phone: [facility] 04-05-2025 10:15-0400 Body height 177.8 cm Dieter Villegas MD Work Phone: [facility] 04-05-2025 10:15-0400 Body mass index (BMI) [Ratio] 21.09 kg/m2 Dieter Villegas MD Work Phone: [facility] 04-05-2025 10:15-0400 Body weight 66.68 kg Dieter Villegas MD Work Phone: [facility] 03-21-2025 16:02-0400 Body temperature 98.29 [degF] Keiry Solares MD Work Phone: [facility] 03-21-2025 16:02-0400 Diastolic blood pressure 85 mm[Hg] Keiry Solares MD Work Phone: [facility] 03-21-2025 16:02-0400 Heart rate 71 /min Keiry Solares MD Work Phone: [facility] 03-21-2025 16:02-0400 Respiratory rate 18 /min Keiry Solares MD Work Phone: [facility] 03-21-2025 16:02-0400 SaO2% (BldA) [Mass fraction] 94 % Keiry Solares MD Work Phone: [facility] 03-21-2025 16:02-0400 Systolic blood pressure 147 mm[Hg] Keiry Solares MD Work Phone: [facility] 03-21-2025 03:15-0400 Body mass index (BMI) [Ratio] 22.24 kg/m2 Keiry Solares MD Work Phone: [facility] 03-21-2025 03:15-0400 Body weight 70.31 kg Keiry Solares MD Work Phone: [facility] 03-14-2025 16:17-0400 Body height 177.8 cm Kiery Solares MD Work Phone: [facility] 03-05-2025 14:03-0400 Body temperature 97 [degF] Mejgon Cuca DO Work Phone: [facility] 03-05-2025 14:03-0400 Diastolic blood pressure 83 mm[Hg] Mejgon Cuca DO Work Phone: [facility] 03-05-2025 14:03-0400 Heart rate 78 /min Mejgon Cuca DO Work Phone: [facility] 03-05-2025 14:03-0400 Respiratory rate 16 /min Palak Alya DO Work Phone: [facility] 03-05-2025 14:03-0400 SaO2% (BldA) [Mass fraction] 100 % Palak Alya DO Work Phone: [facility] 03-05-2025 14:03-0400 Systolic blood pressure 137 mm[Hg] Palak Alya DO Work Phone: [facility] 02-23-2025 14:13-0400 Body height 177.8 cm Palak Alya DO Work Phone: [facility] 02-23-2025 14:13-0400 Body mass index (BMI) [Ratio] 19.23 kg/m2 Palak Alya DO Work Phone: [facility] 02-23-2025 14:13-0400 Body weight 60.78 kg Palak Alya DO Work Phone: [facility] 02-14-2025 10:30-0400 Body height 177.8 cm Mikala Day PA-C Work Phone: [employer] [facility] 02-14-2025 10:30-0400 Body mass index (BMI) [Ratio] 18.65 kg/m2 Mikala Day PA-C Work Phone: [employer] [facility] 02-14-2025 10:30-0400 Body temperature 96.8 [degF] Mikala Day PA-C Work Phone: [employer] [facility] 02-14-2025 10:30-0400 Body weight 58.97 kg Mikala Day PA-C Work Phone: [employer] [facility] 02-14-2025 10:30-0400 Diastolic blood pressure 72 mm[Hg] Mikala Day PA-C Work Phone: [employer] [facility] 02-14-2025 10:30-0400 Heart rate 89 /min Mikala Day PA-C Work Phone: [facility] 02-14-2025 10:30-0400 SaO2% (BldA) [Mass fraction] 98 % Mikala Shay SANTOS Work Phone: [facility] 02-14-2025 10:30-0400 Systolic blood pressure 138 mm[Hg] Mikala Day DANIELLE Work Phone: [facility] 02-01-2025 15:02-0400 Body temperature 96.69 [degF] Lazaro Rojo MD Work Phone: [facility] 02-01-2025 15:02-0400 Diastolic blood pressure 60 mm[Hg] Lazaro Rojo MD Work Phone: [facility] 02-01-2025 15:02-0400 Heart rate 81 /min Lazaro Rojo MD Work Phone: [facility] 02-01-2025 15:02-0400 Respiratory rate 16 /min Lazaro Rojo MD Work Phone: [facility] 02-01-2025 15:02-0400 SaO2% (BldA) [Mass fraction] 98 % Lazaro Rojo MD Work Phone: [facility] 02-01-2025 15:02-0400 Systolic blood pressure 118 mm[Hg] Lazaro Rojo MD Work Phone: [facility] 02-01-2025 05:36-0400 Body mass index (BMI) [Ratio] 14.58 kg/m2 Lazaro Rojo MD Work Phone: [facility] 02-01-2025 05:36-0400 Body weight 46.1 kg Lazaro Rojo MD Work Phone: [facility] 01-30-2025 10:02-0400 Body height 177.8 cm Lazaro Rojo MD Work Phone: [facility] 08-28-2024 15:33-0500 Body height 177.8 cm Jr Shah MD Work Phone: [facility] 08-28-2024 15:33-0500 Body mass index (BMI) [Ratio] 29.56 kg/m2 Jr Shah MD Work Phone: [facility] 08-28-2024 15:33-0500 Body weight 93.44 kg Jr Shah MD Work Phone: [facility] 08-28-2024 15:33-0500 Diastolic blood pressure 80 mm[Hg] Jr Shah MD Work Phone: [facility] 08-28-2024 15:33-0500 Heart rate 75 /min Jr Shah MD Work Phone: [facility] 08-28-2024 15:33-0500 Systolic blood pressure 130 mm[Hg] Jr Shah MD Work Phone: [facility] 11-12-2023 14:16-0500 Diastolic blood pressure 84 mm[Hg] Quiana Contreras MAKEUP SALES CONSULTANT - [employer] BLOCKER Work Phone: [facility] 11-12-2023 14:16-0500 Systolic blood pressure 138 mm[Hg] Quiana Contreras MAKEUP SALES CONSULTANT - HAND I BLOCKER Work Phone: [facility] 11-12-2023 13:41-0500 Body height 177.8 cm Quiana Contreras MAKEUP SALES CONSULTANT - HAND I BLOCKER Work Phone: [facility] 11-12-2023 13:41-0500 Body mass index (BMI) [Ratio] 29.84 kg/m2 Quiana Contreras APRN - HAND I BLOCKER Work Phone: [facility] 11-12-2023 13:41-0500 Body weight 94.35 kg Quiana Contreras APRN - HAND I BLOCKER Work Phone: [facility] 11-12-2023 13:41-0500 Heart rate 85 /min Quiana Contreras APRN - HAND I BLOCKER Work Phone: [facility] 08-17-2023 13:12-0500 Diastolic blood pressure 67 mm[Hg] Dangelo Horne DO Work Phone: [facility] 08-17-2023 13:12-0500 Heart rate 84 /min Dangelo Horne DO Work Phone: [employer] [facility] 08-17-2023 13:12-0500 Respiratory rate 18 /min Dangelo Horne DO Work Phone: [employer] [facility] 08-17-2023 13:12-0500 SaO2% (BldA) [Mass fraction] 98 % Dangelo Horne DO Work Phone: [employer] [facility] 08-17-2023 13:12-0500 Systolic blood pressure 94 mm[Hg] Dangelo Horne DO Work Phone: [employer] [facility] 08-17-2023 09:13-0500 Body height 177.8 cm Dangelo Horne DO Work Phone: [facility] 08-17-2023 09:13-0500 Body mass index (BMI) [Ratio] 28.7 kg/m2 Dangelo Horne DO Work Phone: [facility] 08-17-2023 09:13-0500 Body weight 90.72 kg Dangelo Horne DO Work Phone: [employer] [facility] 08-17-2023 08:50-0500 Body temperature 99 [degF] Dangelo Horne DO Work Phone: [facility] 05-01-2023 20:36-0400 Diastolic blood pressure 85 mm[Hg] Jese Frank MD Work Phone: [employer] [facility] 05-01-2023 20:36-0400 Heart rate 74 /min Jese Frank MD Work Phone: [employer] [facility] 05-01-2023 20:36-0400 Respiratory rate 20 /min Jese Frank MD Work Phone: [employer] [facility] 05-01-2023 20:36-0400 SaO2% (BldA) [Mass fraction] 95 % Jese Frank MD Work Phone: [employer] [facility] 05-01-2023 20:36-0400 Systolic blood pressure 135 mm[Hg] Jese Frank MD Work Phone: [facility] 05-01-2023 20:08-0400 Body height 177.8 cm Jese Frank MD Work Phone: [facility] 05-01-2023 20:08-0400 Body mass index (BMI) [Ratio] 28.7 kg/m2 Jese Frank MD Work Phone: [facility] 05-01-2023 20:08-0400 Body temperature 98.2 [degF] Jese Frank MD Work Phone: [facility] 05-01-2023 20:08-0400 Body weight 90.72 kg Jese Frank MD Work Phone: [facility] 12-25-2021 15:50-0400 Body height 177.8 cm Rudy Painter MD Work Phone: [facility] 12-25-2021 15:50-0400 Body weight 99.79 kg uRdy Painter MD Work Phone: [facility] 12-25-2021 15:50-0400 Diastolic blood pressure 72 mm[Hg] Rudy Painter MD Work Phone: [facility] 12-25-2021 15:50-0400 Heart rate 70 /min Rudy Painter MD Work Phone: [facility] 12-25-2021 15:50-0400 Systolic blood pressure 130 mm[Hg] Rudy Painter MD Work Phone: [facility] 09-15-2021 11:20-0500 Body temperature 97.59 [degF] Cindy Patel MD Work Phone: [facility] 09-15-2021 11:20-0500 Diastolic blood pressure 83 mm[Hg] Cindy Patel MD Work Phone: [facility] 09-15-2021 11:20-0500 Heart rate 85 /min Cindy Patel MD Work Phone: [facility] 09-15-2021 11:20-0500 Respiratory rate 20 /min Cindy Patel MD Work Phone: [facility] 09-15-2021 11:20-0500 SaO2% (BldA) [Mass fraction] 98 % Cindy Patel MD Work Phone: [facility] 09-15-2021 11:20-0500 Systolic blood pressure 144 mm[Hg] Cindy Patel MD Work Phone: [facility] 09-15-2021 09:19-0500 Body height 177.8 cm Cindy Patel MD Work Phone: [facility] 09-15-2021 09:19-0500 Body mass index (BMI) [Ratio] 30.05 kg/m2 Cindy Patel MD Work Phone: [facility] 09-15-2021 09:19-0500 Body weight 94.98 kg Cindy Patel MD Work Phone: [facility] 10-27-2019 20:02-0500 Body temperature 97.2 [degF] SimplyTapp DO Work Phone: [employer] Work Phone: 10-27-2019 20:02-0500 Diastolic blood pressure 77 mm[Hg] Callie Damir DO Work Phone: [employer] Work Phone: 10-27-2019 20:02-0500 Heart rate 107 /min Callie Damir DO Work Phone: [facility] Work Phone: 10-27-2019 20:02-0500 Respiratory rate 16 /min Callie Damir DO Work Phone: [employer] Work Phone: 10-27-2019 20:02-0500 SaO2% (BldA) [Mass fraction] 96 % Callie Damir DO Work Phone: [employer] Work Phone: 10-27-2019 20:02-0500 Systolic blood pressure 112 mm[Hg] Callie Match DO Work Phone: [employer] Work Phone: 10-27-2019 14:10-0500 Body mass index (BMI) [Ratio] 27.08 kg/m2 Callie Damir DO Work Phone: [employer] Work Phone: 10-27-2019 14:10-0500 Body weight 85.6 kg Callie Match DO Work Phone: [employer] Work Phone: 10-19-2019 12:45-0500 Body height 177.8 cm Callie Card Isle Work Phone: [employer] Work Phone: Encounters Encounter Date Encounter Type Care Provider Facility Start: 04-17-2025 End: 04-17-2025 Emergency department patient visit Keiry Solares MD Work Phone: [facility] ED Comment on above: Supratherapeutic INR (Primary Dx); Necrosis (HCC) Start: 04-17-2025 [facility] Start: 04-16-[facility] Start: 04-12-2025 End: 04-12-2025 Subsequent hospital visit by physician [facility] Exam Room [address] Comment on above: Hemoptysis Start: [facility] Start: 04-11-2025 End: 04-11-2025 Telephone encounter Piedad Genao DPM Work Phone: [facility] Mitzy White Comment on above: Appointment Start: 04-09-2025 End: 04-09-2025 Emergency department patient visit LEILANI TRONCOSO [facility] Comment on above: ESRD on hemodialysis (CMS/HCC) (HCC) (Primary Dx); Contusion of dorsum of right hand Start: 04-09-2025 ambulatory Mahave Mukka jena OLS Facility:[facility] Start: 04-05-2025 End: 04-05-2025 Telephone encounter Sophia Lara APRN - HAND I BLOCKER Work Phone: [facility] Comment on above: Cancelled Appointmen t Start: 04-05-2025 End: 04-05-2025 Emergency department patient visit Dieter Villegas MD Work Phone: [facility] ED Comment on above: Tachycardia (Primary Dx); Dialysis patient (HCC) Start: 04-05-2025 [facility]ulatory [facility] Start: 04-02-2025 ambulatory [facility] OLS Facility:[facility] Start: 03-29-2025 ambulatory [facility] OLS Facility:[facility] Start: 03-26-2025 End: 03-28-2025 Telephone encounter Sophia Lara APRN - HAND I BLOCKER Work Phone: [facility] [employer] [facility] Comment on above: Appointment Start: 03-26-2025 ambulatory Jayesh ALBA Faci lity:[facility] Start: 03-22-2025 ambulatory [facility] OLS Facility:[facility] Start: 03-22-2025 Registered Referred Kayley ortiz MD -[facility] Start: 03-13-2025 End: 03-21-2025 Evaluation and management of inpatient Keiry Solares MD Work Phone: [facility] Cardiac Progressive Care Unit PCU 5W Comment on above: SOB (shortness of br eath) (Primary Dx); 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, 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) Start: 03-12-2025 ambulatory Jayesh ALBA Faci lity:[facility] Start: 03-12-2025 Registered Referred Jayesh Stubbs [employer] Start: 03-09-2025 ambulatory Jayesh ALBA Faci lity:[facility] Start: 03-09-2025 Registered Referred Jayesh Forrester [facility] [employer] Start: 03-08-2025 End: 03-08-2025 Orders Only Christelle Eckert RN [facility] [place] Comment on above: Tracheostomy depende nce (HCC) (Primary Dx); Tracheostomy complication, unspecified complication type (HCC); Acute respiratory failure with hypoxia (HCC) [J96.01] Start: 03-08-2025 Registered Referred Kayley ortiz MD -[facility] Start: 02-23-2025 End: 02-23-2025 Telephone encounter Elly Jett MD Work Phone: [facility] Comment on above: Appointment Start: 02-21-2025 End: 02-25-2025 Telephone encounter Hussain Quintana MD Work Phone: [facility] [place] Comment on above: Other Start: 02-20-2025 End: 03-05-2025 Evaluation and management of inpatient Palak Thurman DO Work Phone: [facility] Trauma Neuro Progressive Care Unit PCU 3W Start: 02-20-2025 End: 02-20-2025 ambulatory Kayley Melendrez MD [facility] Work Phone: Start: 02-20-2025 End: 02-20-2025 Departed Referred Kayley Melendrez MD -[facility] Start: 02-20-2025 Registered Referred Kayley ortiz MD -[facility] Start: 02-20-2025 End: 02-20-2025 ambulatory Kayley ALBA Facility:[facility] Start: 02-15-2025 End: 02-15-2025 ambulatory Kayley Melendrez MD [facility] Work Phone: Start: 02-15-2025 End: 02-15-2025 Departed Referred Kayley Melendrez MD -[facility] Start: 02-15-2025 Registered Referred Kayley ortiz MD -[facility] Start: 02-14-2025 End: 02-14-2025 Office outpatient visit 25 minutes Mikala Day PA-C Work Phone: [facility] [place] Comment on above: Sacral osteomyelitis (CMS/HCC) (HCC) (Primary Dx); ESRD on hemodialysis (CMS/HCC) (HCC); 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, 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); Decubitus ulcer of sacral region, unstageable (HCC); director long term care (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 Start: 02-14-2025 End: 02-15-[address] [facility] Start: 02-13-2025 ambulatory Kayley ALBA Facility:[facility] Start: 02-13-2025 Registered Referred Kayley Shen [employer] Start: 02-12-2025 End: 02-12-2025 ambulatory Kayley Shen [employer] Start: 02-12-2025 End: 02-12-2025 Departed Referred Kayley [facility]uary [employer] Start: 02-12-2025 Registered Referred Kayley Snowuary [employer] Start: 02-12-2025 End: 02-12-2025 ambulatory Kayley ALBA Facility:[facility] Start: 02-08-2025 End: 02-08-2025 ambulatory Kayley Snowuary [employer] Start: 02-08-2025 End: 02-08-2025 Departed Referred Kayley Wagon[facility]uary [employer] Start: 02-08-2025 Registered Referred Kayley Snowuary [employer] Start: 02-07-2025 End: 02-08-2025 ambulatory Kayley ALBA [facility] Work Phone: Start: 02-07-2025 End: 02-07-2025 Departed Referred Jayesh Shen Austinjan[facility] MCCANN Start: 02-07-2025 Registered Referred Jayesh MCCANN Start: 02-07-2025 End: 02-07-2025 ambulatory Jayesh ALBA Facility:[facility] Start: 02-05-2025 End: 02-05-2025 ambulatory Kayley Melendrez MD [facility] Work Phone: Start: 02-05-2025 End: 02-05-2025 [facility]arted [facility] Start: 02-05-2025 End: 02-05-2025 ambulatory Kayley ALBA Facility:[facility] Start: 02-02-2025 End: 02-02-2025 Anticoagulant drug monitoring Adalberto SanchezD [facility] Pharmacy Comment on above: S/P AVR (Primary Dx) Start: 01-29-2025 End: 02-05-2025 Telephone encounter Adina Montenegro MA [facility] Anticoagulatio n Management Service Comment on above: Anticoagulation Start: 01-19-2025 End: 02-01-2025 Evaluation and management of inpatient Lazaro Rojo MD Work Phone: [facility] Cardiac Vascular Progressive Care Unit PCC 1C Start: 01-18-2025 End: 01-18-2025 ambulatory Jefferson Nathan MD Work Phone: [facility] Pulmonary [facility] Sleep Medicine [facility] Comment on above: Acute respiratory fa ilure with hypoxia (HCC) [J96.01] (Primary Dx); RSV (acute bronchiolitis due to respiratory syncytial virus); Tracheostomy dependence (HCC); Leg DVT (deep venous thromboembolism), acute, left (HCC); Pulmonary embolism, unspecified chronicity, unspecified pulmonary embolism type, unspecified whether acute cor pulmonale present (HCC); S/P AVR Start: 01-17-2025 End: 01-17-2025 ambulatory Jefferson Nathan MD Work Phone: [facility] Comment on above: RSV (acute bronchiol itis [...] (Primary Dx); ESRD on hemodialysis (CMS/HCC) (HCC); half-way (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; Decubitus ulcer of sacral region, unstageable (HCC); Sacral osteomyelitis (CMS/HCC) (HCC) Start: 01-16-2025 End: 01-16-2025 ambulatory Jefferson Nathan MD Work Phone: [facility] Sleep [facility] Comment on above: RSV (acute bronchiol itis due to respiratory syncytial virus) (Primary Dx); Tracheostomy dependence (HCC); Pneumonia of both lungs due to methicillin susceptible Staphylococcus aureus (MSSA), unspecified part of lung (HCC); Acute respiratory failure with hypoxia ([facility]) [J96.01]; Nonrheumatic aortic valve stenosis; Pulmonary embolism, unspecified chronicity, unspecified pulmonary embolism type, unspecified whether acute cor pulmonale present (HCC) Start: 01-15-2025 End: 01-15-2025 ambulatory Jefferson Nathan MD Work Phone: [facility] Sleep [facility] Comment on above: RSV (acute bronchiol itis [...] 01-14-2025 ambulatory Hany Berrios MD Work Phone: [facility] Comment on above: Acute respiratory fa ilure with hypoxia (HCC) [J96.01] (Primary Dx); 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]; Pulmonary embolism, other, unspecified chronicity, unspecified whether acute cor pulmonale present (HCC) Start: 01-12-2025 End: 01-12-2025 ambulatory Mikala Shay SANTOS Work Phone: [facility] Infectious Dis Comment on above: Tracheostomy depende nce (HCC) (Primary Dx); Sacral osteomyelitis (CMS/HCC) (HCC); Leukocytosis, unspecified type; Decubitus ulcer of sacral region, unstageable (HCC); director long term care (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 Acute respiratory fa ilure with hypoxia (HCC) [J96.01] (Primary Dx); 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]; Pulmonary embolism, other, unspecified chronicity, unspecified whether acute cor pulmonale present (HCC) Start: 01-11-2025 End: 01-11-2025 ambulatory Mikala Shay SANTOS Work Phone: [facility] Infectious Dis Comment on above: Tracheostomy depende nce (HCC) (Primary Dx); ESRD on hemodialysis (CMS/HCC) (HCC); Sacral osteomyelitis (CMS/HCC) (HCC); Decubitus ulcer of sacral region, unstageable (HCC) Acute respiratory fa ilure with hypoxia (HCC) [J96.01] (Primary Dx); 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]; Pulmonary embolism, other, unspecified chronicity, unspecified whether acute cor pulmonale present (HCC) Start: 01-10-2025 End: 01-10-2025 ambulatory Hany Berrios MD Work Phone: [facility] Sleep [facility] Comment on above: Acute respiratory fa ilure with hypoxia (HCC) [J96.01] (Primary Dx); 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]; Pulmonary embolism, other, unspecified chronicity, unspecified whether acute cor pulmonale present (HCC) Start: 01-09-2025 End: 01-09-2025 ambulatory [place] Shay SANTOS Work Phone: [facility] Infectious Dis Comment on above: Tracheostomy depende [...] 01-08-2025 ambulatory Mikala Day PA-C Work Phone: [facility] Infectious Dis Comment on above: Tracheostomy depende [...] End: 01-05-2025 ambulatory Sydni Husain APRN - HAND I BLOCKER Work Phone: [facility] [place] Comment on above: Pneumonia of both marleny ngs due to methicillin susceptible Staphylococcus aureus (MSSA), unspecified part of lung (HCC) (Primary Dx); Acute hypoxic respiratory failure (HCC); Tracheostomy dependence (HCC); ESRD on hemodialysis (CMS/HCC) (HCC); Sacral osteomyelitis (CMS/HCC) (HCC); Decubitus ulcer of sacral region, unstageable (HCC) Start: 01-05-2025 End: 01-05-2025 Patient encounter procedure Chandrika Allen APRN - HAND I BLOCKER Work Phone: [facility] [place] Comment on above: Acute respiratory fa ilure with hypoxia (HCC) [J96.01] (Primary Dx); 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]; LRTI (lower respiratory tract infection) [J22] Start: 01-04-2025 End: 01-04-2025 Admission to same day surgery center Sydni Husain APRN - HAND I BLOCKER Work Phone: [facility] [place] Comment on above: Tracheostomy depende nce (HCC) (Primary Dx); Pneumonia of both lungs due to methicillin susceptible Staphylococcus aureus (MSSA), unspecified part of lung (HCC); Acute hypoxic respiratory failure (HCC); Peritonitis due to fungus (HCC); ESRD on hemodialysis (CMS/HCC) (HCC); Sacral osteomyelitis (CMS/HCC) (HCC); Leukocytosis, unspecified type; History of abdominal surgery Start: 01-04-2025 End: 01-04-2025 ambulatory Sydni Husain APRN - HAND I BLOCKER Work Phone: [facility] Disease - [place] Start: 01-04-2025 End: 01-04-2025 [facility] hospital care/day 25 minutes Angeles Blackburn DO Work Phone: [facility] [employer] Comment on above: 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] (Primary Dx); Acute respiratory failure with hypoxia ([facility]) [J96.01] Start: 01-03-2025 End: 01-03-2025 ambulatory Josephine Cash APRN [employer] Work Phone: [facility] Disease - [place] Comment on above: Sacral osteomyelitis (CMS/HCC) (HCC) (Primary Dx); Decubitus ulcer of sacral region, unstageable (HCC); Pneumonia of both lungs due to methicillin susceptible Staphylococcus aureus (MSSA), unspecified part of lung (HCC); Leukocytosis, unspecified type; ESRD on hemodialysis (CMS/HCC) (HCC); S/P AVR Start: 01-03-2025 End: 01-03-2025 [facility] hospital care/day 25 minutes Angelesmatt Blackburn DO Work Phone: [facility] Nodule [facility] [employer] Comment on above: 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] (Primary Dx); Acute respiratory failure with hypoxia (HCC) [J96.01] Start: 01-02-2025 End: 01-02-2025 ambulatory Josephine Cash MAKEUP SALES CONSULTANT - HAND I BLOCKER Work Phone: [facility] [place] Comment on above: Leukocytosis, unspec ified type (Primary Dx); Pneumonia of both lungs due to methicillin susceptible Staphylococcus aureus (MSSA), unspecified part of lung (HCC); Acute hypoxic respiratory failure (HCC); Decubitus ulcer of sacral region, unstageable (HCC); ESRD on hemodialysis (CMS/HCC) (HCC); S/P AVR Start: 01-02-2025 End: 01-02-2025 [facility] hospital care/day 25 minutes Angeles Bere DO Work Phone: [facility] [place] Comment on above: 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] (Primary Dx); Acute respiratory failure with hypoxia (HCC) [J96.01] Start: 01-01-2025 End: 01-01-2025 ambulatory Ochoa Guido MD Work Phone: [facility] Cardiology [facility] Comment on above: Persistent atrial fi brillation (HCC) (Primary Dx) Leukocytosis, unspec ified type (Primary Dx); Pneumonia of both lungs due to methicillin susceptible Staphylococcus aureus (MSSA), unspecified part of lung (HCC); Acute hypoxic respiratory failure (HCC); Tracheostomy dependence (HCC); Decubitus ulcer of sacral region, unstageable (HCC); ESRD on hemodialysis (CMS/HCC) (HCC); S/P AVR Start: 01-01-2025 End: 01-01-2025 [facility] hospital care/day 25 minutes Angelesmatt Blackburn DO Work Phone: [facility] [place] Comment on above: 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] (Primary Dx); Acute respiratory failure with hypoxia (HCC) [J96.01] Start: 12-30-2024 End: 12-30-2024 ambulatory Josephine Cash MAKEUP SALES CONSULTANT - HAND I BLOCKER Work Phone: [facility] Infectious Dis Comment on above: Leukocytosis, unspec ified type (Primary Dx); Acute hypoxic respiratory failure (HCC); Tracheostomy dependence (HCC); S/P AVR; ESRD on hemodialysis (CMS/HCC) (HCC); Decubitus ulcer of sacral region, unstageable (HCC) Start: 12-28-2024 End: 12-28-2024 ambulatory Mercedes Hinton MAKEUP SALES CONSULTANT - HAND I BLOCKER [facility] Start: 12-28-2024 End: 12-28-2024 Patient encounter procedure Mercedes Hinton MAKEUP SALES CONSULTANT - HAND I BLOCKER Work Phone: [facility] Comment on above: Acute respiratory fa ilure with hypoxia (HCC) [J96.01] (Primary Dx); 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]; Tracheostomy care (HCC) [Z43.0]; History of pulmonary embolus (PE) [Z86.711] Start: 12-27-2024 End: 12-27-2024 ambulatory Mercedes Hinton MAKEUP SALES CONSULTANT - HAND I BLOCKER [facility] Start: 12-27-2024 End: 12-27-2024 Patient encounter procedure Mercedes Hinton MAKEUP SALES CONSULTANT - HAND I BLOCKER [facility] Comment on above: Acute respiratory fa ilure with hypoxia (HCC) [J96.01] (Primary Dx); 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]; Tracheostomy care (HCC) [Z43.0]; History of pulmonary embolus (PE) [Z86.711] Start: 12-26-2024 End: 12-26-2024 ambulatory Mercedes Hinton MAKEUP SALES CONSULTANT - HAND I BLOCKER [facility] Start: 12-26-2024 End: 12-26-2024 Patient encounter procedure Mercedes Hinton MAKEUP SALES CONSULTANT - HAND I BLOCKER Work Phone[facility] Comment on above: Acute respiratory fa ilure with hypoxia (HCC) [J96.01] (Primary Dx); 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]; Tracheostomy care (HCC) [Z43.0]; History of pulmonary embolus (PE) [Z86.711] Start: 12-22-2024 End: 12-22-2024 ambulatory Chandrika Allen MAKEUP SALES CONSULTANT - HAND I BLOCKER Work Phone: [facility] Lung [facility] Start: 12-22-2024 End: 12-22-2024 Patient encounter procedure Chandrika Allen MAKEUP SALES CONSULTANT - HAND I BLOCKER Work Phone: [facility] Comment on above: 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] (Primary Dx); Acute respiratory failure with hypoxia (HCC) [J96.01]; LRTI (lower respiratory tract infection) [J22] Start: 12-21-2024 End: 12-21-2024 ambulatory Chandrika Allen MAKEUP SALES CONSULTANT - HAND I BLOCKER Work Phone: [facility] Start: 12-21-2024 End: 12-21-2024 Patient encounter procedure Chandrika Allen APRN - HAND I BLOCKER Work Phone: [facility] Comment on above: 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] (Primary Dx); Acute respiratory failure with hypoxia (HCC) [J96.01]; LRTI (lower respiratory tract infection) [J22] Start: 12-20-2024 End: 12-20-2024 ambulatory Chandrika Cummingsoblewski MAKEUP SALES CONSULTANT - HAND I BLOCKER Work Phone: [facility] Start: 12-20-2024 End: 12-20-2024 Patient encounter procedure Chandrika Allen MAKEUP SALES CONSULTANT - HAND I BLOCKER Work Phone: [facility] Comment on above: 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] (Primary Dx); Acute respiratory failure with hypoxia (HCC) [J96.01]; LRTI (lower respiratory tract infection) [J22] Start: 12-19-2024 End: 12-19-2024 ambulatory Chandrika Medranowski MAKEUP SALES CONSULTANT - HAND I BLOCKER Work Phone: [facility] Start: 12-19-2024 End: 12-19-2024 Patient encounter procedure Chandrika Castillo Alejandro MAKEUP SALES CONSULTANT [employer] Work Phone: [facility] Comment on above: 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] (Primary Dx); Acute respiratory failure with hypoxia (HCC) [J96.01]; LRTI (lower respiratory tract infection) [J22] Start: 12-18-2024 End: 12-18-2024 Patient encounter procedure Chandrika BorjaRomulo Allen MAKEUP SALES CONSULTANT [employer] Work Phone: [facility] Comment on above: Acute respiratory fa ilure with hypoxia (HCC) [J96.01] (Primary Dx); 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]; LRTI (lower respiratory tract infection) [J22] Start: 12-18-2024 End: 12-18-2024 ambulatory Chandrika BorjaRomulo Allen MAKEUP SALES CONSULTANT [employer] Work Phone: [facility] Start: 12-15-2024 End: 12-15-2024 ambulatory Jefferson Nathan MD Work Phone: [facility] Start: 12-15-2024 End: 12-15-2024 Patient encounter procedure Jefferson Nathan MD Work Phone: [facility] Comment on above: Acute respiratory fa ilure with hypoxia (HCC) (Primary Dx); Tracheostomy dependence (HCC); RSV (acute bronchiolitis due to respiratory syncytial virus); Leg DVT (deep venous thromboembolism), acute, left (HCC); Nonrheumatic aortic valve stenosis Start: 12-14-2024 End: 12-14-2024 ambulatory Jefferson Nathan MD Work Phone: [facility] Medicine [facility] Comment on above: Acute respiratory fa ilure with hypoxia (HCC) (Primary Dx); Tracheostomy dependence (HCC); RSV (acute bronchiolitis due to respiratory syncytial virus); ESRD on hemodialysis (CMS/HCC) (HCC); Pulmonary embolism, other, unspecified chronicity, unspecified whether acute cor pulmonale present (HCC); Nonrheumatic aortic valve stenosis Start: 12-13-2024 End: 12-13-2024 ambulatory Jefferson Nathan MD Work Phone: [facility] Comment on above: Acute respiratory fa ilure with hypoxia (HCC) (Primary Dx); Tracheostomy dependence (HCC); RSV (acute bronchiolitis due to respiratory syncytial virus); Paroxysmal A-fib (CMS/HCC) (HCC); Nonrheumatic aortic valve stenosis Start: 12-12-2024 End: 12-12-2024 ambulatory Jefferson Nathan MD Work Phone: [facility] Sleep Medicine [place] Comment on above: RSV (acute bronchiol itis due to respiratory syncytial virus) (Primary Dx); Tracheostomy dependence (HCC); Acute respiratory failure with hypoxia (HCC); Paroxysmal A-fib (CMS/HCC) (HCC); Peritonitis due to fungus (HCC) Start: 12-11-2024 End: 12-11-2024 ambulatory Jefferson Nathan MD Work Phone: [facility] Comment on above: RSV (acute bronchiol [...] surgery center Sydni Forrester CNP Work Phone: [facility] [place] Comment on above: Acute respiratory fa ilure with hypoxia (HCC) (Primary Dx); Tracheostomy dependence (HCC); S/P AVR; Peritonitis due to fungus (HCC); ESRD on hemodialysis (CMS/HCC) (HCC); 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, 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); Anemia, unspecified type; History of abdominal surgery Start: 12-07-2024 End: 12-07-2024 ambulatory Sydni Husain MAKEUP SALES CONSULTANT - [employer] Work Phone: [facility] - [place] Start: 12-07-2024 End: 03-23-2025 [facility] hospital care/day 25 minutes Vincent Meek MD Work Phone: [facility] [employer] Comment on above: Acute respiratory fa ilure with hypoxia (HCC) (Primary Dx); Ventilator dependent (HCC); Tracheostomy dependence (HCC); Pulmonary embolism, other, unspecified chronicity, unspecified whether acute cor pulmonale present (HCC); S/P AVR; ESRD on hemodialysis (CMS/HCC) (HCC) Start: 12-06-2024 End: 12-06-2024 Admission to same day surgery center Sydni Husain MAKEUP SALES CONSULTANT [employer] Work Phone: [facility] Disease - [place] Comment on above: Acute respiratory fa ilure with hypoxia (HCC) (Primary Dx); Tracheostomy dependence (HCC); S/P AVR; Peritonitis due to fungus (HCC); ESRD on hemodialysis (CMS/HCC) (HCC); 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, 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); History of abdominal surgery Start: 12-06-2024 End: 12-06-2024 ambulatory Sydni Husain MAKEUP SALES CONSULTANT [employer] Work Phone: [facility] Disease - [place] Start: 12-06-2024 End: 03-23-2025 [facility] hospital care/day 25 minutes Vincent Meek MD Work Phone: [facility] [employer] Comment on above: Acute respiratory fa ilure with hypoxia (HCC) (Primary Dx); Ventilator dependent (HCC); Tracheostomy dependence (HCC); Pulmonary embolism, other, unspecified chronicity, unspecified whether acute cor pulmonale present (HCC); S/P AVR; ESRD on hemodialysis (CMS/HCC) (HCC) Start: 12-05-2024 End: 03-23-2025 [facility] hospital care/day 35 minutes Vincent Meek MD Work Phone: [facility] [place] Comment on above: Acute respiratory fa ilure with hypoxia (HCC) (Primary Dx); Tracheostomy dependence (HCC); Ventilator dependent (HCC); Pulmonary embolism, other, unspecified chronicity, unspecified whether acute cor pulmonale present (HCC); S/P AVR; ESRD on hemodialysis (CMS/HCC) (HCC) Start: 12-04-2024 End: 12-04-2024 Admission to same day surgery center Sydni Husain APRN - HAND I BLOCKER Work Phone: [facility] - [place] Comment on above: Acute respiratory fa ilure with hypoxia (HCC) (Primary Dx); Tracheostomy dependence (HCC); S/P AVR; Peritonitis due to fungus (HCC); ESRD on hemodialysis (CMS/HCC) (HCC); 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, 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); History of abdominal surgery Start: 12-04-2024 End: 12-04-2024 ambulatory Sydni Husain APRN - HAND I BLOCKER Work Phone: [facility] - [place] Comment on above: Atypical atrial flut ter (HCC) (Primary Dx) Start: 12-01-2024 End: 12-01-2024 Admission to same day surgery center Sydni Husain MAKEUP SALES CONSULTANT - HAND I BLOCKER Work Phone: [facility] - [place] Comment on [...] 12-01-2024 ambulatory Jefferson Nathan MD Work Phone: [facility] Comment on above: Atypical atrial flut ter (HCC) (Primary Dx) Start: 12-01-2024 End: 12-01-2024 Patient encounter procedure Jefferson Nathan MD Work Phone: [facility] Comment on above: Acute respiratory fa ilure with hypoxia (HCC) (Primary Dx); Tracheostomy dependence (HCC); Ventilator dependent (HCC); Pulmonary embolism, other, unspecified chronicity, unspecified whether acute cor pulmonale present (HCC); S/P AVR Start: 11-30-2024 End: 11-30-2024 Admission to same day surgery center Sydni Husain APRN - HAND I BLOCKER Work Phone: [facility] - [place] Comment on [...] End: 11-30-2024 ambulatory Sydni Husain APRN - HAND [employer] BLOCKER Work Phone: [facility] - [place] Comment on [...] same day surgery center Sydni Husain APRN [employer] Work Phone: [facility] - [place] Comment on above: Peritonitis due to f ungus (HCC) (Primary Dx); History of abdominal surgery; S/P AVR; 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, 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); Leg DVT (deep venous thromboembolism), acute, left (HCC); Anemia, unspecified type Start: 11-29-2024 End: 11-30-2024 ambulatory Jefferson Nathan MD Work Phone: [facility] Sleep Medicine - [place] [...] Telephone encounter Jefferson Nathan MD Work Phone: [facility] Comment on above: Advice Only Start: 10-22-2024 End: 10-22-2024 ambulatory [facility] Start: 10-21-2024 End: 10-25-2024 ambulatory [facility] Start: 10-16-2024 End: 10-16-2024 Telephone encounter Enid Forrester CNP Work Phone: [facility] Comment on above: Care Coordination Start: 10-13-2024 End: 10-13-2024 Telephone encounter Lan Carpenter PA-C Work Phone: [facility] Start: 10-12-2024 End: 10-12-2024 Evaluation and management of inpatient Vincent Wilson MD Work Phone: [facility] Start: 10-03-2024 End: 10-03-2024 Emergency department patient visit JESEOLIVIA FRANK [facility] Start: 10-03-2024 End: 10-03-2024 Subsequent hospital visit by physician [facility] Exam Room [address] [facility] [address] Comment on above: Arrived Start: 10-03-2024 End: 11-28-2024 Evaluation and management of inpatient LEILANI TRONCOSO [facility] Start: 08-28-2024 End: 08-28-2024 ambulatory JR SHAH [facility] Start: 08-28-2024 End: 08-28-2024 Office outpatient visit 25 minutes Jr Shah MD Work Phone: [facility] - [place] Comment on above: Paroxysmal A-fib (CM S/HCC) (HCC) (Primary Dx); Nonrheumatic aortic valve stenosis; Tobacco abuse; Alcohol use disorder in remission Start: 05-10-2024 Chart abstracting Alan Barroso RN [facility] Comment on above: Dialysis status upda te Start: 04-12-2024 Telephone encounter Kidney [facility]xp Coordinators Work Phone: Transplant Center Start: 02-12-2024 Telephone encounter Jr Shah MD Work Phone: [facility] Sched[facility] Comment on above: unable to contact pa tient unable to contact pa tient to schedule Start: 11-12-2023 End: 11-12-2023 Office outpatient visit 25 minutes Quiana Contreras MAKEUP SALES CONSULTANT - HAND [employer] BLOCKER Work Phone: [facility] Cardiology Comment on above: Nonrheumatic aortic valve stenosis (Primary Dx); Paroxysmal A-fib (CMS/HCC) (HCC); Primary hypertension; Calcification of abdominal aorta (HCC); Tobacco abuse; ESRD on hemodialysis (CMS/HCC) (HCC) Start: 10-14-2023 Telephone encounter Sasha weeks MAKEUP SALES CONSULTANT - HAND [employer] BLOCKER Work Phone: [facility] Cardiology Comment on above: Cancelled Appointmen t Start: 09-07-2023 Transcribe Orders Fransisco toro MAKEUP SALES CONSULTANT Work Phone: [facility] Comment on above: Personal history of nicotine dependence (Primary Dx); Nicotine dependence, cigarettes, uncomplicated Start: 08-18-2023 Telephone encounter Quiana forman MAKEUP SALES CONSULTANT - HAND [employer] BLOCKER Work Phone: [facility] Cardiology Start: 08-16-2023 End: 08-17-2023 Evaluation and management of inpatient Dangelo Horne DO Work Phone: [facility] ED Comment on above: New onset a-fib (CMS /HCC) (HCC) (Primary Dx); Atrial fibrillation, persistent (HCC) Start: 05-01-2023 End: 05-01-2023 Emergency department patient visit Jese Frank MD Work Phone: [facility] ED Comment on above: Skin sore (Primary D x); ESRD (end stage renal disease) on dialysis (HCC) Start: 12-30-2021 Telephone encounter [facility]ovani [facility]ckee MD [facility] Comment on above: Procedure please advise Start: 12-29-2021 ambulatory Shameem Santa Painter MD Work Phone: Ambulatory Surgery Start: 12-29-2021 Telephone encounter Cecilia galo PA-C Work Phone: [facility] Comment on above: cecilia carlson Start: 12-25-2021 End: 12-25-2021 Patient encounter procedure Rudy Painter MD Work Phone: [facility] Comment on above: Acute blood loss ane ruth (Primary Dx); Rectal bleeding Start: 09-15-2021 End: 09-15-2021 Subsequent hospital visit by physician Cindy Patel MD Work Phone: [facility] Cath & IR Lab Start: 10-17-2020 End: 10-17-2020 Subsequent hospital visit by physician Cindy Patel Work Phone: [facility] Cindy Dept Start: 03-13-2020 End: 03-13-2020 Subsequent hospital visit by physician [facility] [place] Acc LAB EKG [facility] Comment on above: Preoperative testing [Z01.818] Start: 10-19-2019 End: 10-27-2019 Evaluation and management of inpatient Callie iNeves DO Work Phone: [facility] Comment on above: Acute kidney injury (HCC) (Primary Dx); Uncontrolled hypertension; Normocytic anemia; Angioedema, initial encounter; Hyperkalemia; Metabolic acidosis; Rectal bleeding Procedures Date Procedure Procedure Detail Performing Clinician Start: 04-17-2025 Comprehensive metabo lic panel Keiry Solares MD Work Phone: Start: 04-09-2025 Radex hand minimum 3 views Yari Oplinger PA-C Work Phone: Start: 04-09-2025 Basic metabolic pane l calcium total Yari Mejiainger PA-C Work Phone: Start: 04-05-2025 Assay of troponin quantitative Barbara Taryn Levy PA-C Work Phone: Start: 04-05-2025 Radiologic exam ches t 2 views Barbara Centeno Levy PA-C Work Phone: Start: 04-05-2025 Basic metabolic pane l calcium total Barbara Taryn Levy PA-C Work Phone: Start: 04-05-2025 Ecg routine ecg w/le ast 12 lds trcg only w/o i&r Dieter Villegas MD Work Phone: Start: 03-21-2025 Glucose [...] Iaad ia hepatitis b surface antigen Shell Monitel MD Work Phone: Start: 03-19-2025 Thromboplastin time [...] Work Phone: Start: 03-13-2025 Natriuretic peptide Jia Sanon MD Work Phone: Start: 03-13-2025 Assay [...] metabolic pane l calcium total Anthony Sulaiman Perezold DO Work Phone: Start: 03-03-2025 Basic metabolic pane l calcium total Minor Collier MD Work Phone: Start: 03-03-2025 Basic metabolic pane l calcium total Anthony Hilario Genesis DO Work Phone: Start: 03-02-2025 Thromboplastin time [...] on above: Performed By: #### L [id number] ####Filing Clerk: DOMENICA JARA ([id number])[facility] ([facility])[address] [place] [address] Start: 02-21-2025 C-reactive protein Karena Jett MD Work Phone: Start: 02-21-2025 Comprehensive metabo lic panel Bettye Pierre MD Work Phone: Start: 02-20-2025 Ct angiography chest w/contrast/noncontrast Mejgon Z Cuca DO Work Phone: Start: 02-20-2025 Basic metabolic pane l calcium total Mefritzn Avelino Cuca DO Work Phone: Start: 02-14-2025 [...] DO Work Phone: Start: 01-24-2025 Colonoscopy Adalberto Rodrigueskpatrick PharmD Start: 01-24-2025 Radiologic exam ches t [...] End: 01-22-2025 TRANSFUSE FRESH FROZEN PLASMA Nils S Salh DO Work Phone: Start: 01-22-2025 Glucose quantitative [...] Basic metabolic pane l calcium total Chantell Joyceidara DO Work Phone: Start: 01-21-2025 End: 01-22-2025 [...] Blood count complete automated Crystal D. Meranto MAKEUP SALES CONSULTANT - HAND I BLOCKER Work Phone: Start: 01-21-2025 Glucose quantitative blood [...] abd&plvis c ntrst mtrl w/wo cntrst img Jappatric Hlot DO Work Phone: Start: 01-20-2025 Blood count [...] History of abd ominal surgery Sydni Husain MAKEUP SALES CONSULTANT - [employer] BLOCK[employer] Work Phone: Start: 10-12-2024 Insj non-tunneled ce ntral venous cath age 5 yr/> Rudolph German FINANCIAL REPORTING ANALYST Start: 10-12-2024 MO AN CENTRAL LINE T RIPLE LUMEN Rudolph German FINANCIAL REPORTING ANALYST Start: 10-12-2024 MO AN ELECTIVE ENDOTRACHEAL AIRWAY Rudolph German FINANCIAL REPORTING ANALYST Start: 10-12-2024 Us vasc access sits vsl patency ndl entry Rudolph German FINANCIAL REPORTING ANALYST Start: 10-12-2024 ANESTHESIA ARTERIAL LINE PLACEMENT Rudolph German FINANCIAL REPORTING ANALYST Start: 10-03-2024 Ct head/brain w/o contrast material [...] vaccination due to patient refusal Sasha Vesta MAKEUP SALES CONSULTANT - [employer] Work Phone: Start: 08-17-2023 Echo tthrc r-t 2d w/wom-mode compl spec&colr d Earlene Irving MD Work Phone: Start: 08-17-2023 Thyrotropin [Units/volume] in Serum or Plasma [facility] PA-C Work Phone: Start: 08-17-2023 Basic metabolic [...] ast 12 lds trcg only w/o i&r [place] Provider Start: 03-13-2020 BASIC METABOLIC PNL Tati farooq (House Painter Pbx Teacher) [place] Work Phone: Start: 03-13-2020 CBC Darya (A prn Pbx Teacher) Zachary Work Phone: Start: 03-13-2020 MDRD GFR Darya (A prn Pbx Teacher) Zachary Work Phone: Start: 03-13-2020 PROTHROMBIN TIME/PT Tati trivedi (House Painter Pbx Teacher) Zachary Work Phone: Start: 10-27-2019 Basic metabolic [...] Basic metabolic panel calcium total Delon Jessica MAKEUP SALES CONSULTANT - [employer] Work Phone: Start: 10-22-2019 GLOMERULAR BASEMENT MEMBRANE (GBM) ANTIBODY IGG Randolph Liz MD Work Phone: Start: 10-21-2019 Radiologic exam abdo men 1 view Brett Encarnacion MD Work Phone: Start: 10-21-2019 End: 10-21-2019 Dup-scan artl shayan abdl/pel/scrot&/rpr orgn com Brett Encarnacion MD Work Phone: Start: 10-21-2019 Basic metabolic pane l calcium total Delon Jessica MAKEUP SALES CONSULTANT - [employer] BLOCKER Work Phone: Start: 10-20-2019 Basic metabolic pane l calcium total Brett Encarnacion MD Work Phone: Start: 10-20-2019 TRANSFUSE RED BLOOD CELLS Delon Jessica MAKEUP SALES CONSULTANT - [facility] Work Phone: Start: 10-20-2019 TRANSFUSE RED BLOOD CELLS Delon Jessica MAKEUP SALES CONSULTANT - [facility] Work Phone: Start: 10-20-2019 Blood count hemoglobin Delon Jessica MAKEUP SALES CONSULTANT - [facility] Work Phone: Start: 10-20-2019 Basic metabolic pane l calcium total Delon Jessica MAKEUP SALES CONSULTANT - [facility] Work Phone: Start: 10-20-2019 RBC morphology findi ng Nom (Bld) Delon Jessica MAKEUP SALES CONSULTANT - [facility] Work Phone: Start: 10-19-2019 Basic metabolic pane [...] Phone: Comment on above: Test Performed by [facility], [address] [place], [place] [address] Start: 10-19-2019 End: 10-19-2019 ADD ON LAB [...] History of abdom inal surgery Sydni Husain MAKEUP SALES CONSULTANT - HAND [employer] BLOCKER Work Phone: H/O: surgery History of abdom inal surgery Sydni Husain MAKEUP SALES CONSULTANT - HAND [employer] BLOCKER Work Phone: H/O: surgery History of abdom inal surgery ySdni Husain MAKEUP SALES CONSULTANT - HAND I BLOCKER Work Phone: H/O: surgery History of abdom inal surgery Sydni Husain MAKEUP SALES CONSULTANT - HAND I BLOCKER Work Phone: H/O: surgery History of abdom inal surgery Sydni Husain MAKEUP SALES CONSULTANT - [employer] BLOCKER Work Phone: H/O: surgery History of abdom inal surgery Sydni Husain MAKEUP SALES CONSULTANT - HAND [employer] BLOCKER Work Phone: Vaccine refused by patient Missed vaccination due to patient refusal Palak Thurman DO Work Phone: Plan of Treatment Date Care Activity Detail Author Start: 2040 RSV Immunization for Adults (1 - 1-dose 75+ series) RSV Immunization for Adults (1 - 1-dose 75+ series) [facility] Start: 2040 [facility] Start: 01-24-2035 Screening for malignant neoplasm of colon [facility] Start: 03-14-2030 Lipid panel Lipid Panel [facility] Start: 04-17-2026 Creatinine measurement Creatinine Level [facility] Start: 04-17-2026 Potassium measurement Potassium Level [facility] Start: 04-12-2026 Screening for malignant neoplasm of lung Lung Cancer Screening [facility] Start: 04-09-2026 Creatinine measurement Creatinine Level [facility] Start: 04-09-2026 Potassium measurement Potassium Level [facility] Start: 04-05-2026 Creatinine measurement Creatinine Level [facility] Start: 04-05-2026 Potassium measurement Potassium Level [facility] Start: 03-21-2026 Creatinine measurement Creatinine Level [facility] Start: 03-21-2026 Potassium measurement Potassium Level [facility] Start: 03-13-2026 Screening for malignant neoplasm of lung Lung Cancer Screening [facility] Start: 03-05-2026 Creatinine measurement [facility] Start: 03-05-2026 Potassium measurement [facility] Start: 02-23-2026 Creatinine measurement Creatinine Level [facility] Start: 02-23-2026 Echocardiography Echocardiogram [facility] Start: 02-23-2026 Potassium measurement Potassium Level [facility] Start: 02-23-2026 [facility] Start: 02-12-2026 Creatinine measurement Creatinine Level [facility] Start: 02-12-2026 Potassium measurement Potassium Level [facility] Start: 02-01-2026 Creatinine measurement [facility] Start: 02-01-2026 Potassium measurement [facility] Start: 01-16-2026 Creatinine measurement Creatinine Level [facility] Start: 01-16-2026 Potassium measurement Potassium Level [facility] Start: 01-15-2026 Creatinine measurement Creatinine Level [facility] Start: 01-15-2026 Potassium measurement Potassium Level [facility] Start: 01-12-2026 Creatinine measurement Creatinine Level [facility] Start: 01-12-2026 Potassium measurement Potassium Level [facility] Start: 01-08-2026 Creatinine measurement Creatinine Level [facility] Start: 01-08-2026 Potassium measurement Potassium Level [facility] Start: 01-05-2026 Potassium measurement Potassium Level [facility] Start: 01-01-2026 Creatinine measurement Creatinine Level [facility] Start: 01-01-2026 Potassium measurement Potassium Level [facility] Start: 12-30-2025 Creatinine measurement Creatinine Level [facility] Start: 12-30-2025 Potassium measurement Potassium Level [facility] Start: 12-25-2025 Creatinine measurement Creatinine Level [facility] Start: 12-25-2025 Potassium measurement Potassium Level [facility] Start: 12-22-2025 Creatinine measurement Creatinine Level [facility] Start: 12-22-2025 Potassium measurement Potassium Level [facility] Start: 12-18-2025 Creatinine measurement Creatinine Level [facility] Start: 12-18-2025 Potassium measurement Potassium Level [facility] Start: 12-15-2025 Creatinine measurement Creatinine Level [facility] Start: 12-15-2025 Potassium measurement Potassium Level [facility] Start: 12-11-2025 Creatinine measurement Creatinine Level [facility] Start: 12-11-2025 Potassium measurement Potassium Level [facility] Start: 12-04-2025 Creatinine measurement Creatinine Level [facility] Start: 12-04-2025 Potassium measurement Potassium Level [facility] Start: 12-01-2025 Creatinine measurement Creatinine Level [facility] Start: 12-01-2025 Potassium measurement Potassium Level [facility] Start: 11-30-2025 Creatinine measurement Creatinine Level [facility] Start: 11-30-2025 Potassium measurement Potassium Level [facility] Start: 11-29-2025 Creatinine measurement Creatinine Level [facility] Start: 11-29-2025 Potassium measurement Potassium Level [facility] Start: 11-24-2025 Echocardiography Echocardiogram [facility] Start: 11-24-2025 [facility] Start: 2025 RSV Immunization aged 60 or older (1 - 1-dose 60+ series) RSV Immunization aged 60 or older (1 - 1-dose 60+ series) [facility] Start: 11-03-2025 Creatinine measurement Creatinine Level [facility] Start: 11-03-2025 Potassium measurement Potassium Level [facility] Start: 11-02-2025 Echocardiography Echocardiogram [facility] Start: 10-11-2025 Screening for malignant neoplasm of lung [facility] Start: 05-28-2025 Influenza vaccination [facility] Start: 05-28-2025 [facility] Start: 04-26-2025 End: 04-26-2025 Patient encounter procedure 04/26/2025 9:20 AM EDT Office Visit [facility] [address] [place] [address] Yasemin Lucas, MAKEUP SALES CONSULTANT - HAND I BLOCKER [address] [place] [address] [facility] Start: 04-12-2025 End: 04-12-2025 Patient encounter procedure [facility] [address] [facility] [address] Start: 04-05-2025 End: 04-05-2025 ambulatory [facility] Start: 04-05-2025 End: 04-05-2025 Patient encounter procedure 04/05/2025 1:00 PM EDT Office Visit [facility] [address] [place] [address] Sophia Lara, MAKEUP SALES CONSULTANT - HAND I BLOCKER [address] [place] [address] [facility] Start: 04-03-2025 End: 04-03-2025 ambulatory [facility] Start: 04-03-2025 End: 04-03-2025 Patient encounter procedure 04/03/2025 10:45 AM EDT Office Visit [facility] [address] [place] [address] Zoe Valadez, MAKEUP SALES CONSULTANT - HAND I BLOCKER 1 [facility] [place] [phone] [facility] Start: 03-26-2025 End: 02-23-2026 CT Chest WO contrast CT chest wo IV contrast Imaging Routine Hemoptysis Expected: 03/26/2025, Expires: 02/23/2026 [facility] Work Phone: Comment on above: Expected: 03/26/2025, Expires: Start: 02-15-2025 End: 02-15-2025 ambulatory [facility] Start: 02-15-2025 End: 02-15-2025 Patient encounter procedure [facility] Start: 02-14-2025 End: 02-14-2025 ambulatory [facility] [place] Start: 02-14-2025 End: 02-14-2025 Patient encounter procedure [facility] Special Procedures Start: 12-25-2024 End: 12-25-2024 Patient encounter procedure 12/25/2024 10:00 AM EDT Office Visit [facility] [address] [place] [address] Sophia Lara, DENIA - HAND I BLOCKER [address] [place] [address] [facility] Start: 12-18-2024 End: 12-18-2024 Telemedicine consultation with patient 12/18/2024 1:00 PM EDT Telemedicine [facility] [place] [address] [place] [phone] Osiris Terrell, MAKEUP SALES CONSULTANT - HAND I BLOCKER [address] [place] [address] [facility] [place] Start: 10-09-2024 End: 10-09-2024 Patient encounter procedure 10/09/2024 3:00 PM EST Appointment [facility] 1 [facility] [place] [facility] 1 [facility] [address] [place] [address] Jr Shah MD 1 [facility] [address] [place] [address] [facility] Start: 09-27-2024 Medicare Advantage Annual Wellness Visit Medicare Advantage Annual Wellness Visit [facility] Start: 09-27-2024 [facility] Start: 09-13-2024 End: 09-13-2024 Patient encounter procedure 09/13/2024 3:00 PM EST Appointment [facility] 1 [facility] 1 [facility] [address] [place] [phone] Jr Shah MD 1 [facility] [address] [place], [place] [address] [facility] 1 [facility] Start: 09-11-2024 End: 08-28-2026 US Heart Transthoracic Transthoracic echocardiogram (TTE) complete with contrast, bubble, strain, and 3D PRN CV Echocardiography Routine Nonrheumatic aortic valve stenosis Expected: 09/11/2024 (Approximate), Expires: 08/28/2026 [facility] [employer] Work Phone: Comment on above: Expected: 09/11/2024 (Approximate), Expi res: 08/28/2026 Start: 08-17-2024 Thyroid stimulating hormone measurement TSH Level [facility] Start: 05-28-2024 COVID-19 Vaccine ( season) COVID-19 Vaccine ( season) [facility] Start: 05-28-2024 Influenza vaccination [facility] Start: 05-28-2024 [facility] Start: 02-07-2024 End: 02-07-2024 Patient encounter procedure [facility] 1 [facility] Start: 11-29-2023 End: 11-29-2023 Patient encounter procedure 11/29/2023 3:00 PM EST Appointment [facility] CT Imaging [address] [place] [phone] Fransisco Pineda, MAKEUP SALES CONSULTANT [address] [place] [address] [facility] CT Imaging Start: 11-24-2023 End: 11-24-2023 Patient encounter procedure 11/24/2023 1:30 PM EST Office Visit [facility] 1 [facility] [address] [place] [phone] Madhuri De La Rosa MD 1 [facility] [place], [place] [id number] [facility] Start: 09-27-2023 Behavioral Health Screening Behavioral Health Screening [facility] Start: 09-27-2023 Medicare Advantage Annual Wellness Visit Medicare [facility] Annual Wellness Visit [facility] Start: 09-07-2023 End: 09-07-2024 CT Chest for screening WO contrast CT lung screening low dose Imaging Routine Nicotine dependence, cigarettes, uncomplicated Personal history of nicotine dependence Expected: 09/07/2023, Expires: 09/07/2024 [facility] Work Phone: Comment on above: Expected: 09/07/2023, Expires: Start: 05-28-2023 COVID-19 Vaccine ( season) COVID-19 Vaccine ( season) [facility] Start: 05-28-2023 Influenza vaccination Influenza Vaccine (#1) [facility] Start: 05-10-2023 DIABETES SCREEN DIABETES SCREEN [facility] Start: 05-10-2023 Diabetes Screening Diabetes Screening [facility] Start: 03-13-2023 DIABETES SCREEN DIABETES SCREEN [facility] Start: 05-28-2022 Influenza vaccination INFLUENZA (Season Ended) [facility] Start: 10-22-2021 End: 10-22-2021 Patient encounter procedure 10/22/2021 Office Visit Dermatology Madhuri De La Rosa MD 1 [facility] [place], [address] [place] [address] [facility] Start: 05-28-2021 Influenza vaccination [facility] Start: 05-20-2021 Hepatitis B Vaccines (1 of 1 - Risk Dialysis 4-dose series) Hepatitis B Vaccines (1 of 1 - Risk Dialysis 4-dose series) [facility] Start: 05-20-2021 [facility] Start: 05-10-2021 HEMOGLOBIN/HEMATOCRIT HEMOGLOBIN/HEMATOCRIT [facility] Start: 05-10-2021 SERUM CREATININE SERUM CREATININE [facility] Start: 12-08-2020 Annual Wellness Visit (AWV) Annual Wellness Visit (AWV) [facility] Start: 2020 PROSTATE CANCER SCREENING DISCUSSION PROSTATE CANCER SCREENING DISCUSSION [facility] Start: 2020 Prostate specific antigen measurement Prostate Cancer Screening Discussion [facility] Start: 11-12-2020 End: 11-12-2020 Office Visit 11/12/2020 Office Visit Dermatology Madhuri De La Rosa MD 1 [facility] [place], [address] [place] [address] [phone] [facility] Start: 10-19-2020 Screening for malignant neoplasm of colon [facility] Start: 05-28-2020 Influenza vaccination [facility] Start: 05-28-2019 Influenza vaccination Flu vaccine (#1) [facility] Work Phone: Start: 2015 Screening for malignant neoplasm of colon Colon cancer screen colonoscopy [place] Start: 2015 Shingles Vaccine (1 of 2) Shingles Vaccine (1 of 2) [facility] Start: 2015 SHINGRIX VACCINE (1 of 2) SHINGRIX VACCINE (1 of 2) [facility] Start: 2015 Tuberculosis screening COLORECTAL CANCER SCREENING,SEE MODIFIER [facility] Start: 2015 Zoster Vaccines (1 of 2) Zoster Vaccines (1 of 2) [facility] Start: 2015 [facility] Start: 2010 COLOGUARD (FIT-DNA) COLOGUARD (FIT-DNA) [facility] Start: 2010 Colonoscopy COLONOSCOPY [facility] Start: 2010 COLORECTAL CANCER SCREENING COLORECTAL CANCER SCREENING [facility] Start: [address] COLONOGRAPHY [facility] Start: 2010 FECAL OCCULT BLOOD FECAL OCCULT BLOOD [facility] Start: 2010 Screening for malignant neoplasm of colon [facility] Start: 2010 SIGMOIDOSCOPY SIGMOIDOSCOPY [facility] Start: 2005 Diabetes screen Diabetes screen [place] Start: 2005 Lipid panel Lipid screen [facility] Start: 2000 Diabetes screen Diabetes screen [facility] Start: 2000 Lipid panel Lipid Screening [facility] Start: 2000 LIPID SCREEN LIPID SCREEN [facility] Start: 1984 DTaP/Tdap/Td vaccine (1 - Tdap) DTaP/Tdap/Td vaccine (1 - Tdap) [facility] Start: 1984 DTaP/Tdap/Td Vaccines (1 - Tdap) DTaP/Tdap/Td Vaccines (1 - Tdap) [facility] Start: 1984 Pneumococcal Vaccine: 50+ Years (1 of 2 - PCV) Pneumococcal Vaccine: 50+ Years (1 of 2 - PCV) [facility] Start: 1984 Urine microalbumin profile [facility] Start: 1984 [facility] Start: 1983 ANNUAL PCP TEAM CHRONIC DISEASE VISIT ANNUAL PCP TEAM CHRONIC DISEASE VISIT [facility] Start: 1983 Anxiety Screening Anxiety Screening [facility] Start: 1983 Depression Screening Depression Screening [facility] Start: 1983 Diabetes mellitus screening [facility] Start: 1983 HEPATITIS C SCREENING HEPATITIS C SCREENING [facility] Start: 1983 HIV SCREENING HIV SCREENING [facility] Start: 1983 HIV screening HIV Screening [facility] Start: 1977 Adult depression screening assessment DEPRESSION SCREENING [facility] Start: 1977 [facility] Start: 1971 Pneumococcal 0-64 years Vaccine (1 of 1 - PPSV23) Pneumococcal 0-64 years Vaccine (1 of 1 - PPSV23) [place] Start: 1971 Pneumococcal 0-64 years Vaccine (1 of 2 - PPSV23) Pneumococcal 0-64 years Vaccine (1 of 2 - PPSV23) [facility] Start: 1971 Pneumococcal vaccination Pneumococcal Vaccine (1 of 2 - PCV) [facility] Start: 1971 Pneumococcal Vaccine: Pediatrics (0 to 5 Years) and At-Risk Patients (6 to 64 Years) (1 - PCV) Pneumococcal Vaccine: Pediatrics (0 to 5 Years) and At-Risk Patients (6 to 64 Years) (1 - PCV) [facility] Start: 1971 Pneumococcal Vaccine: Pediatrics (0 to 5 Years) and At-Risk Patients (6 to 64 Years) (1 of 2 - PCV) Pneumococcal Vaccine: Pediatrics (0 to 5 Years) and At-Risk Patients (6 to 64 Years) (1 of 2 - PCV) [facility] Start: 1970 COVID-19 Vaccine (1) COVID-19 Vaccine (1) [facility] Start: 1966 MMR Vaccines (1 of 1 - Standard series) MMR Vaccines (1 of 1 - Standard series) [facility] Start: 1966 [facility] Start: 05-17-1966 COVID-19 Vaccine (#1) COVID-19 Vaccine (#1) [facility] Start: 05-17-1966 Examination of skin Derm Melanoma Skin Check [facility] Start: 1965 Lipid panel [facility] Start: 1965 Medicare Advantage Annual Wellness Visit (AWV) Medicare Advantage Annual Wellness Visit (AWV) [facility] Start: 1965 Screening for malignant neoplasm of colon [facility] [employer] Basic metabolic 2000 panel - Serum or Plasma Basic Metabolic Panel Lab Routine Daily until discontinued starting 10/23/2019, 5 completed [facility] Work Phone: Comment on above: Daily until discontinued starting 2019, 5 completed CBC W Auto Different ial panel - Blood CBC Auto Differential Lab Routine Daily until discontinued starting 10/23/2019, 5 completed [facility] Work Phone: Comment on above: Daily until discontinued starting 2019, 5 completed End: 12-25-2022 COLONOSCOPY DIAGNOSTIC COLONOSCOPY DIAGNOSTIC Endoscopy Routine Acute blood loss anemia Rectal bleeding 1 Occurrences starting 12/25/2021 until 12/25/2022 [facility] Work Phone: Comment on above: 1 Occurrences starting 12/25/2021 until 12/25/2022 End: 12-30-2022 COLONOSCOPY DIAGNOSTIC COLONOSCOPY DIAGNOSTIC Endoscopy Routine Other iron deficiency anemia Rectal bleeding 1 Occurrences starting 12/30/2021 until 12/30/2022 [facility] Work Phone: Comment on above: 1 Occurrences starting 12/30/2021 until 12/30/2022 End: 04-12-2025 CT Chest WO contrast [facility] [employer] Work Phone: Comment on above: Once for 1 Occurrences starting 04/12/20 until 04/12/2025 Electrocardiogram EKG BIC 2019 3:36 PM EDT [facility] End: 01-22-2025 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 [facility] [employer] Work Phone: End: 10-19-2019 Hemodialysis inpatient Hemodialysis inpatient Dialysis Routine One Time for 1 Occurrences starting 10/19/2019 until 10/19/2019 [facility] Work Phone: Comment on above: One Time for 1 Occurrences starting 09/28 until 10/19/2019 End: 10-21-2019 Hemodialysis inpatient Hemodialysis inpatient Dialysis Routine One Time for 1 Occurrences starting 10/21/2019 until 10/21/2019 [employer] Work Phone: Comment on above: One Time for 1 Occurrences starting 09/28 until 10/21/2019 End: 10-23-2019 Hemodialysis inpatient Hemodialysis inpatient Dialysis Routine One Time for 1 Occurrences starting 10/23/2019 until 10/23/2019 [employer] Work Phone: Comment on above: One Time for 1 Occurrences starting 09/28 until 10/23/2019 Hemodialysis inpatient Hemodialy sis inpatient Dialysis Routine Every MWF until discontinued starting 10/27/2019 [employer] Work Phone: Comment on above: Every MWF until discontinued starting End: 01-26-2025 Hemoglobin [Mass/volume] in Blood [facility] [employer] Work Phone: End: 02-21-2025 Legionella and Streptococcus Urine Antigen [facility] [employer] [facility] Work Phone: Magnesium [Mass/volu me] in Serum or Plasma MAGNESIUM Lab Routine Daily until discontinued starting 10/23/2019, 5 completed [facility] Work Phone: Comment on above: Daily until discontinued starting 2019, 5 completed End: 01-22-2025 Peripheral blood smear [facility] End: 01-22-2025 Peripheral Blood Smear [facility] Peripheral blood smear [facility] Peripheral Blood Smear [facility] Phosphate [Mass/volu me] in Serum or Plasma Phosphorus Lab Routine Daily until discontinued starting 10/23/2019, 5 completed [facility] Work Phone: Comment on above: Daily until discontinued starting 2019, 5 completed End: 09-15-2021 Special treatments and procedures [facility] Work Phone: Comment on above: Once for 1 Occurrences starting 09/15/20 21 until 09/15/2021 End: 10-26-2019 Surgical Pathology Surgical Pathology Lab STAT Once for 1 Occurrences starting 10/26/2019 until 10/26/2019 [employer] Work Phone: Comment on above: Once for 1 Occurrences starting 10/26/19 20 until 10/26/2019 Surgical Pathology Surgical Path ology Lab STAT 10/26/2019 10:00 AM EST [facility] Work Phone: End: 02-21-2025 Urine Hold Cup [facility] Immunizations Immunization Date Immunization Notes Care Provider [facility] 05-20-2020 hepatitis B vaccine, unspecified formulation Jese Frank MD Work Phone: [facility] 01-19-2020 hepatitis B vaccine, unspecified formulation Jese Frank MD Work Phone: [employer] 12-19-2019 hepatitis B vaccine, unspecified formulation Jese Frank MD Work Phone: [employer] [facility] 11-15-2019 hepatitis B vaccine, unspecified formulation Jese Frank MD Work Phone: [employer] Payers Date Payer Category Payer Self-pay 2023 Medicare HMO [id number] 2023 Medicare [id number] 2022 Medicaid HMO [id number] 2022 Medicaid [id number] 2020 Medicaid [id number] 2020 Medicare [id number] 2020 Medicare [id number] 2020 Unknown [id number] [facility] MEDICAID [id number] 2020-Present Medicaid [id number] 2019 Medicare MEDICARE MEDICAR E A AND B [id number] 2019-Present [place], [place] Medicare [id number] Unknown [id number] Unknown [id number] Unknown [id number] Unknown [id number] Unknown [id number] Unknown [id number] Unknown [id number] Unknown [id number] Unknown [id number] Unknown [id number] Unknown [id number] Unknown [id number] Social History Date Type Detail Facility Start: 1993 End: 03-15-2025 Tobacco smoking status UTIS Current every day smoker [facility] Start: 1993 History of tobacco use Cigarette Smoker [facility] Work Phone: Start: 03-13-2020 End: 03-13-2025 Cigarettes smoked current (pack per day) - Reported [facility] Work Phone: Start: 03-13-2020 End: 03-15-2025 Tobacco use and exposure Never used [facility] Start: 03-13-2020 End: 08-16-2023 Alcohol intake Current drinker of alcohol (finding) [facility] Work Phone: Start: 1965 Sex Assigned At Not on file [facility] Work Phone: Start: 12-15-2021 End: 05-01-2023 Exposure to SARS-CoV-2 (event) Not sure [facility] Start: 10-19-2019 Alcohol Comment on weekends [facility] Work Phone: Start: 12-25-2021 End: 04-17-2025 Alcohol intake Ex-drinker (finding) [facility] Start: 1965 Sex Assigned At Male [facility] Start: 05-01-2023 End: 03-13-2025 Alcohol Use Disorder Identification Test - Consumption [AUDIT-C] [facility] How often to you hav e a drink containing alcohol? Never [facility] How many standard dr inks containing alcohol do you have on a typical day? Patient does not drink [facility] Start: 11-15-2020 Gender identity Identifies as male gender (finding) [facility] Start: 08-10-2020 Sexual orientation Heterosexual (finding) [facility] Start: 04-27-2022 Sex Male (finding) [facility] History of tobacco use Passive smoker [facility] Start: 10-13-2024 Tobacco Comment Started at 28, 3 PPD, tapered down to 1 PPD in 2020 after quitting drinking. 10/27/24 [facility] Tobacco smoking stat us UTIS Unknown if ever smoked [facility] Work Phone: Start: 02-20-2025 Tobacco smoking status NHIS Ex-smoker [facility] Start: 1993 History of tobacco use Current smoker [facility] How often do you nee d to have someone help you when you read instructions, pamphlets, or other written material from your doctor or pharmacy [SILS] Sometimes [facility] Has the electric, ga s, oil, or water company threatened to shut off services in your home in past 12Mo No [facility] Do you feel stress - tense, restless, nervous, or anxious, or unable to sleep at night because your mind is troubled all the time - these days [OSQ] To some extent [facility] (I/We) worried wheth er (my/our) food would run out before (I/we) got money to buy more. Never true [facility] Medical Equipment Procedure Code Equipment Code Equipment Origin al Text Equipment Identifier Dates [id number] Start: 10-12-2024 [id number] Start: 10-09-2024 [id number] Start: 10-14-2024 [id number] Start: 10-14-2024 [id number] Start: 10-14-2024 [id number] Start: 10-14-2024 [id number] Start: 10-14-2024 [id number] Start: 10-14-2024 [id number] Start: 10-14-2024 [id number] Start: 11-03-2024 [id number] Start: 01-30-2025 Functional Status Date Assessment Result Facility 03-13-2025 Total score [AUDIT-C] 0 03/13/20 8:25 AM EDT Karo Pérez RN [facility] Clinical Notes 10-24-2019 to 04-17-2025 Sarina Granado RN - 04/17/2025 1:25 PM EDTCblack Granado RN - 04/17/2025 1:25 PM Nydia Palencia RN - 04/17/2025 10:13 AM EDTDischarge InstructionsAttachmentsDischarge Instructions Note Date & Type Note Facility 04-17-2025 Emergency department Note Report called to [facility]. [facility] 04-17-2025 Emergency department Note Report called to [facility]. PIV placed, blood collected for lab work, pt states it hurts and he does not want an PIV left in, If I leave it he will rip it out. PIV Dc'd documented in this encounter [facility] 04-17-2025 Hospital Discharg e instructions Keiry Solares MD - 04/17/2025 10:58 AM EDT You must have your INR rechecked in 12-24 hours to assess the response to vitamin K. You should hold your warfarin until your INR normalizes or you are instructed to resume it. Come back to the emergency department if your facility is unable to recheck your INR. The following attachments cannot be sent through Care Everywhere.What to Do When Your INR Is Too High (Malagasy)documented in this encounter [facility] 04-17-2025 Emergency department Note PIV placed, blood collected for lab work, pt states it hurts and he does not want an PIV left in, If I leave it he will rip it out. PIV Dc'd [facility] 04-11-2025 Telephone encount er Note At this time patients appointment is cancelled due to insurance being a HMO, there is no referral on file. Provided fax number once received will contact to schedule. Please advise [facility] 04-11-2025 Miscellaneous Notes Formattin g of this note might be different from the original. At this time patients appointment is cancelled due to insurance being a HMO, there is no referral on file. Provided fax number once received will contact to schedule. Please advise Scheduled next avail with Dr. Mata. Name of Caller: Sabino Contact Reason for Appointment: Sabino requesting to schedule patient appointment for podiatry. Please advise. Office Name: Ortho Medication Refills need, if any: n/a Medication Name: n/a documented in this encounter [facility] 04-11-2025 Telephone encount er Note Scheduled next avail with Dr. Mata. [facility] 04-11-2025 Telephone encount er Note Name of Caller: Sabino Contact Reason for Appointment: Sabino requesting to schedule patient appointment for podiatry. Please advise. Office Name: Ortho Medication Refills need, if any: n/a Medication Name: n/a [facility] 04-09-2025 Emergency department Note Consuelo Johnson here to transport pt back to facility. [facility] 04-09-2025 Emergency department Note Consuelo Johnson here to transport pt back to facility. EMERGENCY DEPARTMENT ENCOUNTER Pt Name: Jun Snyder Birthdate 1965 Date of evaluation: 04/09/2025 ED Provider: Yari Santos PA-C CHIEF COMPLAINT Chief Complaint Patient presents with Other Hyperkalemic. Potassium level of 6.0. was at dialysis finished full cycle. Was hypertensive. Gcs 15. Dialysis port in left arm. HISTORY OF PRESENT ILLNESS (Location/Symptom, Timing/Onset, Context/Setting, Quality, Duration, Modifying Factors, Severity) Note limiting factors. I wore appropriate PPE for the entirety of this encounter. HPI Jun Snyder is a 59 y.o. male with PMH significant for hypertension, anemia of chronic disease, paroxysmal atrial fibrillation, and ESRD on hemodialysis Wednesday, Wednesday, and Wednesday who presents to the emergency department via EMS from [facility] for evaluation of hyperkalemia. Patient states that this morning prior to receiving his dialysis, they celeste labs which showed a potassium of 6.0. He subsequently was dialyzed, and completed his entire dialysis cycle, but then was sent to the ER for evaluation. At this time patient denies any chest pain, palpitations, shortness of breath, lightheadedness, or dizziness. Takes Coumadin daily. No recent falls. Gets INR checked regularly at the facility. Is also requesting x-ray of the right hand. States that he uses his right hand to push up out of bed, and noticed some bruising over his mid hand, with some associated pain. No other injury or trauma to the area. No numbness, tingling, or weakness. No history of surgery or hardware placement in the affected extremity. Nursing Notes were reviewed. Limitations to history: None Outside historians: None REVIEW OF SYSTEMS Review of Systems 14 systems reviewed, positives and pertinent negatives as per HPI. All other systems were reviewed and are negative. PAST MEDICAL HISTORY Medical History[1] SURGICAL HISTORY Surgical History[2] CURRENT MEDICATIONS Previous Medications IPRATROPIUM-ALBUTEROL (DUO-NEB) 0.5-2.5 MG/3 ML NEBULIZER SOLUTION Take 3 mL by nebulization every 8 hours as needed for shortness of breath. LIDOCAINE 4 % PATCH Apply 1 patch topically daily. MELATONIN 3 MG TABLET Take 1 tablet (3 mg) by mouth Nightly as needed for sleep. METOPROLOL TARTRATE (LOPRESSOR) 25 MG TABLET Take 1 tablet (25 mg) by mouth 2 times daily. PANTOPRAZOLE (PROTONIX) 40 MG EC TABLET Take 1 tablet (40 mg) by mouth 2 times daily (before meals). Do not crush, chew, or split. SEVELAMER CARBONATE (RENVELA) 800 MG TABLET Take 1 tablet (800 mg) by mouth 3 times daily (with meals). Swallow tablet whole; do not crush, break, or chew. SODIUM ZIRCONIUM CYCLOSILICATE (LOKELMA) 5 G PACKET Take 5 g by mouth daily. WARFARIN (COUMADIN) 1 MG TABLET Take as directed per After Visit Summary. ALLERGIES Lisinopril FAMILY HISTORY Family History[3] SOCIAL HISTORY Social History[4] SCREENINGS PHYSICAL EXAM ED Triage Vitals [04/09/25 1158] Temp Heart Rate Resp BP 36.9 C (98.5 F) 88 16 125/80 SpO2 Temp Source Heart Rate Source Patient Position 98 % Oral Monitor Lying BP Location FiO2 (%) Left arm -- Physical Exam Vitals and nursing note reviewed. Constitutional: General: He is not in acute distress. Appearance: He is well-developed. Comments: No acute distress. Resting comfortably in bed. HENT: Head: Normocephalic and atraumatic. Eyes: Conjunctiva/sclera: Conjunctivae normal. Cardiovascular: Rate and Rhythm: Normal rate and regular rhythm. Heart sounds: No murmur heard. Comments: Radial pulses 2+ and symmetric bilaterally. Skin is warm well-perfused. Compartments are soft. Pulmonary: Effort: Pulmonary effort is normal. No respiratory distress. Breath sounds: Normal breath sounds. Abdominal: Palpations: Abdomen is soft. Tenderness: There is no abdominal tenderness. Musculoskeletal: General: No swelling. Cervical back: Neck supple. Comments: Left upper extremity dialysis fistula clean, dry, and intact with palpable thrill. No active bleeding. Moving all 4 limbs spontaneously. Mild bruising noted over the mid hand on the left extending towards the bases of the pinky and ring finger, without gross deformity. Does have intact flexion and extension of all fingers and the wrist without difficulty. Distal pulses 2+ and symmetric bilaterally. Compartments are soft. Skin is warm well-perfused. Skin: General: Skin is warm and dry. Capillary Refill: Capillary refill takes less than 2 seconds. Neurological: Mental Status: He is alert. Psychiatric: Mood and Affect: Mood normal. DIAGNOSTIC RESULTS RADIOLOGY (Per Emergency Physician): Interpretation per the Radiologist below, if available at the time of this note: XR hand 3+ views right Final Result Findings and impression: Right hand three views show no convincing acute bone or soft tissue process. The etiology of symptoms is not certain. Consider bone scan for persistent symptoms. Report Dictated on Electronically Signed By: Sulaiman Harp MD Electronically Signed Date/Time: 04/09/2025 1:28 PM EDT LABS: Labs Reviewed CBC WITH AUTO DIFFERENTIAL - Abnormal Result Value Auto WBC 7.8 RBC 3.24 (*) Hemoglobin 9.5 (*) Hematocrit 29.3 (*) MCV 90.4 MCH 29.3 MCHC 32.4 RDW 15.9 (*) Platelets 354 MPV 9.0 nRBC 0.0 Neutrophils Relative 71.3 Lymphocytes Relative 13.9 (*) Monocytes Relative 9.8 Eosinophils Relative 3.3 Basophils Relative 1.2 Immature Grans % 0.5 Neutrophils Absolute 5.5 Lymphocytes Absolute 1.1 Monocytes Absolute 0.8 Eosinophils Absolute 0.3 Basophils Absolute 0.1 Immature Grans Absolute 0.0 BASIC METABOLIC PANEL - Abnormal SODIUM 136 POTASSIUM 4.6 CHLORIDE 96 (*) CARBON DIOXIDE 26 UREA NITROGEN 33 (*) CREATININE 3.07 (*) GLUCOSE 80 CALCIUM 9.6 ANION GAP 14 (*) eGFR 22.6 (*) PROTHROMBIN TIME - Abnormal PROTHROMBIN TIME 30.5 (*) INR 3.0 (*) All other labs were within normal range or not returned as of this dictation. EMERGENCY DEPARTMENT COURSE and DIFFERENTIAL DIAGNOSIS/MDM: Vitals: Vitals: 04/09/25 1158 BP: 125/80 BP Location: Left arm Patient Position: Lying Pulse: 88 Resp: 16 Temp: 36.9 C (98.5 F) TempSrc: Oral SpO2: 98% Weight: 68 kg (150 lb) Height: 1.778 m (5' 10") Medications - No data to display I independently evaluated the patient with supervising attending physician available as needed for collaboration. Nursing notes and medical records reviewed. Differential considerations included fluid electrolyte abnormality, metabolic disturbance Initial workup includes includes CBC, BMP, INR, x-ray right hand Upon reassessment patient radha nontoxic. No acute distress. Resting comfortably in bed. Requesting diet order so he can eat lunch. Diet order placed. No acute concerns or complaints at this time otherwise. Lab workup results CBC without leukocytosis.Stable anemia with hemoglobin 9.5. Baseline labs available for review, baseline between 8.8 and 10.0. Most recent 4 days ago was 9.3 and 8.8 four weeks ago so actually improved. BMP with stable renal function, consistent with end-stage renal disease on hemodialysis. Potassium normal at 4.6. Sodium 136. INR 3.0 Chronic conditions contributing to patients presentation include ESRD on hemodialysis In brief, this is a 59-year-old gentleman with PMH significant for end-stage renal disease on hemodialysis Wednesday, Wednesdays, and Wednesday who presents to the emergency department from [facility] with concerns for hyperkalemia. Patient reports they celeste his labs prior to him receiving dialysis, and then he did complete his entire dialysis cycle. Reportedly had potassium of 6.0, so was sent to the ER for further evaluation. On arrival, no acute concerns or complaints, aside from some bruising to the right hand, with possible concern for injury there. Repeat labs here show stable renal function, and potassium 4.6, which is normal. Discussed with patient he was likely elevated, but then received dialysis, which actively treated his hyperkalemia. X-ray otherwise does not show any evidence of acute traumatic injury to the right hand. He has some bruising there, and does recall injuring the hand, so discussed with them the bruising would likely improve, and recommended he and/or ice for 20 minutes at a time as needed to help with swelling. Otherwise, he is not febrile, toxic, or septic. He is clear for discharge, and may return back to his nursing facility at this time. Discharged in stable condition with stable vital signs. FINAL IMPRESSION 1. ESRD on hemodialysis ([facility]) ([facility]) 2. Contusion of dorsum of right hand DISPOSITION Discharge 04/09/2025 01:35:38 PM Shared decision making preformed. PATIENT REFERRED TO: [facility] ED [address] [facility] [id number] As needed, If symptoms worsen (Comment: Please note this report has been produced using speech recognition software and may contain errors related to that system including errors in grammar, punctuation, and spelling, as well as words and phrases that may be inappropriate. If there are any questions or concerns please feel free to contact the dictating provider for clarification.) Yari Santos PA-C (electronically signed) Emergency Medicine Provider [1] Past Medical History: Diagnosis Date Acute renal failure (ARF) ([facility]) 10/19/2019 Anemia 12/30/2021 Calcification of abdominal aorta ([facility]) 10/08/202309/[address] abd Diverticulosis 10/08/2023 ESRD on hemodialysis ([facility]) ([facility]) 10/26/2019 Hemodialysis patient ([facility]) ([facility]) HTN (hypertension) 12/01/2022 Hypertension IgA nephropathy IgA nephropathy determined by biopsy of kidney 10/26/2019 Missed vaccination due to patient refusal 10/08/2023 Has a number of non-scientific based beliefs which interfere with his understanding and acceptance of the medical benefit of vaccination. Nonrheumatic aortic valve stenosis 10/08/2023 Paroxysmal A-fib ([facility]) ([facility]) 08/18/2023 Tobacco abuse 10/08/2023 [2] Past Surgical History: Procedure Laterality Date APPENDECTOMY CARDIAC CATHETERIZATION N/A 10/09/2024 Performed by Bob aWtson MD at [facility] Cardiac Cath/EP Lab CARDIAC CATHETERIZATION Bilateral 11/01/2024 Performed by Bob Watson MD at [facility] Cardiac Cath/EP Lab CARDIAC CATHETERIZATION N/A 11/01/2024 Performed by Bob Watson MD at [facility] Cardiac Cath/EP Lab COLONOSCOPY N/A 01/24/2025 Performed by Chadd Davis MD at [facility] ENDOSCOPY FISTULAGRAM (HISTORICAL) Left 09/15/2021 LEFT UPPER ARM HX AV FISTULA CREATION IR EMBOLIZATION 10/14/2024 IR EMBOLIZATION 10/14/2024 [facility] SPECIAL PROCEDURES IR FISTULAGRAM 08/07/2022 IR FISTULAGRAM 08/07/2022 [facility] IR IMAGING TONSILLECTOMY (HISTORICAL) [3] Family History Problem Relation Name Age of Onset No Known Problems Mother No Known Problems Father [4] Social History Socioeconomic History Marital status: Tobacco Use Smoking status: Every Day Current packs/day: 1.00 Average packs/day: 1.4 packs/day for 31.4 years (45.2 ttl pk-yrs) Types: Cigarettes Start [...] 0 min Stress: Stress Concern Present (02/21/2025) [employer] - Occupational Stress Questionnaire Feeling of Stress : To some extent Social Connections: Unknown (02/21/2025) Social Connection and Isolation Panel [NHANES] Frequency of Communication with Friends and Family: More than three times a week Frequency of Social Gatherings with Friends and Family: Patient declined Attends Sikhism Services: Patient declined Active Member of Clubs [...] 0 Homeless in the Last Year: No Yari Santos PA-C 04/09/25 1400 documented in this encounter [facility] 04-09-2025 Hospital Discharg e instructions Yari Santos PA-C - 04/09/2025 1:36 PM EDT You were seen in the emergency department today after labs at your facility showed an elevated potassium. Your repeat lab work here today is stable, likely because you were dialyzed. Your INR is 3.0 today. Follow-up with your outpatient providers and return to the emergency department should anything change or worsen. documented in this encounter [facility] 04-09-2025 Physician Emergen cy department Note EMERGENCY DEPARTMENT ENCOUNTER Pt Name: Jun Snyder Birthdate 1965 Date of evaluation: 04/09/2025 ED Provider: Yari Santos PA-C CHIEF COMPLAINT Chief Complaint Patient presents with Other Hyperkalemic. Potassium level of 6.0. was at dialysis finished full cycle. Was hypertensive. Gcs 15. Dialysis port in left arm. HISTORY OF PRESENT ILLNESS (Location/Symptom, Timing/Onset, Context/Setting, Quality, Duration, Modifying Factors, Severity) Note limiting factors. I wore appropriate PPE for the entirety of this encounter. HPI Jun Snyder is a 59 y.o. male with PMH significant for hypertension, anemia of chronic disease, paroxysmal atrial fibrillation, and ESRD on hemodialysis Wednesday, Wednesday, and Wednesday who presents to the emergency department via EMS from [facility] for evaluation of hyperkalemia. Patient states that this morning prior to receiving his dialysis, they celeste labs which showed a potassium of 6.0. He subsequently was dialyzed, and completed his entire dialysis cycle, but then was sent to the ER for evaluation. At this time patient denies any chest pain, palpitations, shortness of breath, lightheadedness, or dizziness. Takes Coumadin daily. No recent falls. Gets INR checked regularly at the facility. Is also requesting x-ray of the right hand. States that he uses his right hand to push up out of bed, and noticed some bruising over his mid hand, with some associated pain. No other injury or trauma to the area. No numbness, tingling, or weakness. No history of surgery or hardware placement in the affected extremity. Nursing Notes were reviewed. Limitations to history: None Outside historians: None REVIEW OF SYSTEMS Review of Systems 14 systems reviewed, positives and pertinent negatives as per HPI. All other systems were reviewed and are negative. PAST MEDICAL HISTORY Medical History[1] SURGICAL HISTORY Surgical History[2] CURRENT MEDICATIONS Previous Medications IPRATROPIUM-ALBUTEROL (DUO-NEB) 0.5-2.5 MG/3 ML NEBULIZER SOLUTION Take 3 mL by nebulization every 8 hours as needed for shortness of breath. LIDOCAINE 4 % PATCH Apply 1 patch topically daily. MELATONIN 3 MG TABLET Take 1 tablet (3 mg) by mouth Nightly as needed for sleep. METOPROLOL TARTRATE (LOPRESSOR) 25 MG TABLET Take 1 tablet (25 mg) by mouth 2 times daily. PANTOPRAZOLE (PROTONIX) 40 MG EC TABLET Take 1 tablet (40 mg) by mouth 2 times daily (before meals). Do not crush, chew, or split. SEVELAMER CARBONATE (RENVELA) 800 MG TABLET Take 1 tablet (800 mg) by mouth 3 times daily (with meals). Swallow tablet whole; do not crush, break, or chew. SODIUM ZIRCONIUM CYCLOSILICATE (LOKELMA) 5 G PACKET Take 5 g by mouth daily. WARFARIN (COUMADIN) 1 MG TABLET Take as directed per After Visit Summary. ALLERGIES Lisinopril FAMILY HISTORY Family History[3] SOCIAL HISTORY Social History[4] SCREENINGS PHYSICAL EXAM ED Triage Vitals [04/09/25 1158] Temp Heart Rate Resp BP 36.9 C (98.5 F) 88 16 125/80 SpO2 Temp Source Heart Rate Source Patient Position 98 % Oral Monitor Lying BP Location FiO2 (%) Left arm -- Physical Exam Vitals and nursing note reviewed. Constitutional: General: He is not in acute distress. Appearance: He is well-developed. Comments: No acute distress. Resting comfortably in bed. HENT: Head: Normocephalic and atraumatic. Eyes: Conjunctiva/sclera: Conjunctivae normal. Cardiovascular: Rate and Rhythm: Normal rate and regular rhythm. Heart sounds: No murmur heard. Comments: Radial pulses 2+ and symmetric bilaterally. Skin is warm well-perfused. Compartments are soft. Pulmonary: Effort: Pulmonary effort is normal. No respiratory distress. Breath sounds: Normal breath sounds. Abdominal: Palpations: Abdomen is soft. Tenderness: There is no abdominal tenderness. Musculoskeletal: General: No swelling. Cervical back: Neck supple. Comments: Left upper extremity dialysis fistula clean, dry, and intact with palpable thrill. No active bleeding. Moving all 4 limbs spontaneously. Mild bruising noted over the mid hand on the left extending towards the bases of the pinky and ring finger, without gross deformity. Does have intact flexion and extension of all fingers and the wrist without difficulty. Distal pulses 2+ and symmetric bilaterally. Compartments are soft. Skin is warm well-perfused. Skin: General: Skin is warm and dry. Capillary Refill: Capillary refill takes less than 2 seconds. Neurological: Mental Status: He is alert. Psychiatric: Mood and Affect: Mood normal. DIAGNOSTIC RESULTS RADIOLOGY (Per Emergency Physician): Interpretation per the Radiologist below, if available at the time of this note: XR hand 3+ views right Final Result Findings and impression: Right hand three views show no convincing acute bone or soft tissue process. The etiology of symptoms is not certain. Consider bone scan for persistent symptoms. Report Dictated on Electronically Signed By: Sulaiman Harp MD Electronically Signed Date/Time: 04/09/2025 1:28 PM EDT LABS: Labs Reviewed CBC WITH AUTO DIFFERENTIAL - Abnormal Result Value Auto WBC 7.8 RBC 3.24 (*) Hemoglobin 9.5 (*) Hematocrit 29.3 (*) MCV 90.4 MCH 29.3 MCHC 32.4 RDW 15.9 (*) Platelets 354 MPV 9.0 nRBC 0.0 Neutrophils Relative 71.3 Lymphocytes Relative 13.9 (*) Monocytes Relative 9.8 Eosinophils Relative 3.3 Basophils Relative 1.2 Immature Grans % 0.5 Neutrophils Absolute 5.5 Lymphocytes Absolute 1.1 Monocytes Absolute 0.8 Eosinophils Absolute 0.3 Basophils Absolute 0.1 Immature Grans Absolute 0.0 BASIC METABOLIC PANEL - Abnormal SODIUM 136 POTASSIUM 4.6 CHLORIDE 96 (*) CARBON DIOXIDE 26 UREA NITROGEN 33 (*) CREATININE 3.07 (*) GLUCOSE 80 CALCIUM 9.6 ANION GAP 14 (*) eGFR 22.6 (*) PROTHROMBIN TIME - Abnormal PROTHROMBIN TIME 30.5 (*) INR 3.0 (*) All other labs were within normal range or not returned as of this dictation. EMERGENCY DEPARTMENT COURSE and DIFFERENTIAL DIAGNOSIS/MDM: Vitals: Vitals: 04/09/25 1158 BP: 125/80 BP Location: Left arm Patient Position: Lying Pulse: 88 Resp: 16 Temp: 36.9 C (98.5 F) TempSrc: Oral SpO2: 98% Weight: 68 kg (150 lb) Height: 1.778 m (5' 10") Medications - No data to display I independently evaluated the patient with supervising attending physician available as needed for collaboration. Nursing notes and medical records reviewed. Differential considerations included fluid electrolyte abnormality, metabolic disturbance Initial workup includes includes CBC, BMP, INR, x-ray right hand Upon reassessment patient radha nontoxic. No acute distress. Resting comfortably in bed. Requesting diet order so he can eat lunch. Diet order placed. No acute concerns or complaints at this time otherwise. Lab workup results CBC without leukocytosis.Stable anemia with hemoglobin 9.5. Baseline labs available for review, baseline between 8.8 and 10.0. Most recent 4 days ago was 9.3 and 8.8 four weeks ago so actually improved. BMP with stable renal function, consistent with end-stage renal disease on hemodialysis. Potassium normal at 4.6. Sodium 136. INR 3.0 Chronic conditions contributing to patients presentation include ESRD on hemodialysis In brief, this is a 59-year-old gentleman with PMH significant for end-stage renal disease on hemodialysis Wednesday, Wednesdays, and Wednesday who presents to the emergency department from [facility] with concerns for hyperkalemia. Patient reports they celeste his labs prior to him receiving dialysis, and then he did complete his entire dialysis cycle. Reportedly had potassium of 6.0, so was sent to the ER for further evaluation. On arrival, no acute concerns or complaints, aside from some bruising to the right hand, with possible concern for injury there. Repeat labs here show stable renal function, and potassium 4.6, which is normal. Discussed with patient he was likely elevated, but then received dialysis, which actively treated his hyperkalemia. X-ray otherwise does not show any evidence of acute traumatic injury to the right hand. He has some bruising there, and does recall injuring the hand, so discussed with them the bruising would likely improve, and recommended he and/or ice for 20 minutes at a time as needed to help with swelling. Otherwise, he is not febrile, toxic, or septic. He is clear for discharge, and may return back to his nursing facility at this time. Discharged in stable condition with stable vital signs. FINAL IMPRESSION 1. ESRD on hemodialysis ([facility]) ([facility]) 2. Contusion of dorsum of right hand DISPOSITION Discharge 04/09/2025 01:35:38 PM Shared decision making preformed. PATIENT [facility]FERRED TO: [facility] [address] [facility] [facility] [address] [place] [address] As needed, If symptoms worsen (Comment: Please note this report has been produced using speech recognition software and may contain errors related to that system including errors in grammar, punctuation, and spelling, as well as words and phrases that may be inappropriate. If there are any questions or concerns please feel free to contact the dictating provider for clarification.) Yari Santos PA-C (electronically signed) Emergency Medicine Provider [1] Past Medical History: Diagnosis Date Acute renal failure (ARF) ([facility]) 10/19/2019 Anemia 12/30/2021 Calcification of abdominal aorta ([facility]) 10/08/202309/[address] abd Diverticulosis 10/08/2023 ESRD on hemodialysis ([facility] ([facility]) 10/26/2019 Hemodialysis patient ([facility] ([facility]) HTN (hypertension) 12/01/2022 Hypertension IgA nephropathy IgA nephropathy determined by biopsy of kidney 10/26/2019 Missed vaccination due to patient refusal 10/08/2023 Has a number of non-scientific based beliefs which interfere with his understanding and acceptance of the medical benefit of vaccination. Nonrheumatic aortic valve stenosis 10/08/2023 Paroxysmal A-fib ([facility]) ([facility]) 08/18/2023 Tobacco abuse 10/08/2023 [2] Past Surgical History: Procedure Laterality Date APPENDECTOMY CARDIAC CATHETERIZATION N/A 10/09/2024 Performed by Bob Watson MD at [facility] Cardiac Cath/EP Lab CARDIAC CATHETERIZATION Bilateral 11/01/2024 Performed by Bbo Watson MD at [facility] Cardiac Cath/EP Lab CARDIAC CATHETERIZATION N/A 11/01/2024 Performed by Bob Watson MD at [facility] Cardiac Cath/EP Lab COLONOSCOPY N/A 01/24/2025 Performed by Chadd Davis MD at [facility] ENDOSCOPY FISTULAGRAM (HISTORICAL) Left 09/15/2021 LEFT UPPER ARM HX AV FISTULA CREATION IR EMBOLIZATION 10/14/2024 IR EMBOLIZATION 10/14/2024 [facility] SPECIAL PROCEDURES IR FISTULAGRAM 08/07/2022 IR FISTULAGRAM 08/07/2022 [facility] IR IMAGING TONSILLECTOMY (HISTORICAL) [3] Family History Problem Relation Name Age of Onset No Known Problems Mother No Known Problems Father [4] Social History Socioeconomic History Marital status: Tobacco Use Smoking status: Every Day Current packs/day: 1.00 Average packs/day: 1.4 packs/day for 31.4 years (45.2 ttl pk-yrs) Types: Cigarettes Start [...] 0 min Stress: Stress Concern Present (02/21/2025) [employer] - Occupational Stress Questionnaire Feeling of Stress : To some extent Social Connections: Unknown (02/21/2025) Social Connection and Isolation Panel [NHANES] Frequency of Communication with Friends and Family: More than three times a week Frequency of Social Gatherings with Friends and Family: Patient declined Attends Sikhism Services: Patient declined Active Member of Clubs [...] 0 Homeless in the Last Year: No Yari Santos PA-C 04/09/25 1400 T [facility] 04-05-2025 Hospital Discharg e instructions Barbara Mckeon [...] follow-up as recommended. documented in this encounter [facility] 04-05-2025 Nurse Note Patient Name: Jun Snyder Patient : 1965 Acct: [id number] Date of Admission: 04/05/2025 Room/Bed: Code Status: [...] (0) 3 Regular None (Room air) Clear;Diminished [place];Ecchymosis Warm;Dry Soft Present pt consents to dialysis [...] - Before each treatment: Dialysis Machine No.: [id number] RO Machine Number: [id number] Dialyzer Lot No.: [id number] Tubing Lot Number: [id number] [employer] Secure: Yes Venous Parameters Set: Yes Arterial Parameters Set: Yes NS Bag: Yes Saline Line Double Clamped: Yes Dialyzer: Nipro Prime Volume (mL): 200 mL RO Machine Number: [id number] RO Machine Log Sheet Completed: Yes Machine Alarm Self Test: Completed, Passed (1351) (04/05/25 1351) Air Foam Detector: Tested, Proper Function Extracorporeal Circuit Tested for Integrity: Yes Machine Conductivity: 13.6 Manual Conductivity: 13.6 Manual Ph: 7 Bleach Test (Neg): Yes Bath Temperature: 36 C (96.8 F) Conductivity Meter Serial #: [id number] Machine Functioning Alarm Free? Yes Dialysis Bath: K+ (Potassium): 2 Ca+ (Calcium): 2.5 Na+ (Sodium): 137 HCO3 (Bicarb): 35 Bicarbonate Concentrate Lot No.: [id number] Acid Concentrate Lot No.: [id number] Chlorine Testing - Before each treatment and [...] 110 600 Yes vital signs stable,uf removal 16204/05/25 1615 450 mL/min 830 ml/hr -150 mmHg 210 mmHg 110 600 Yes pt resting, uf removal 189804/05/25 1630 450 mL/min 830 ml/hr -150 mmHg 200 mmHg 110 600 Yes pt resting,uf removal 205604/05/25 1645 450 mL/min 830 ml/hr -150 mmHg [...] and report given to Primary RN at 3250. Primary RN (First Initial, Last Name, Title): [...] Active Problem List Diagnosis Anemia Paroxysmal A-fib ([facility]/HCC) (HCC) HTN (hypertension) ESRD on hemodialysis ([facility]) ([facility]) IgA nephropathy determined by biopsy of kidney Diverticulosis Nonrheumatic aortic valve stenosis Calcification of abdominal aorta (HCC) Missed vaccination due to patient refusal Tobacco abuse Alcohol use disorder in remission Atrial flutter, unspecified type (HCC) RSV (acute bronchiolitis due to respiratory syncytial virus) Aortic stenosis Upper GI bleed S/P AVR Acute hypoxic respiratory failure ([facility]) Acute encephalopathy Pneumoperitoneum Gastric ulceration Severe malnutrition (CMS/HCC) ([facility]) Pleural effusion Peritonitis due to fungus ([facility]) History of abdominal surgery Leg DVT (deep venous thromboembolism), acute, left ([facility]) 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, 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 of skin ([facility]) Tracheostomy dependence ([facility]) Leukocytosis Decubitus ulcer of sacral region, unstageable ([facility]) Pneumonia of both lungs due to methicillin susceptible Staphylococcus aureus (MSSA) ([facility]) Sacral osteomyelitis ([facility]/HCC) ([facility]) Acute respiratory failure with hypoxia ([facility]) [J96.01] Tracheostomy care ([facility]) [Z43.0] 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[facility]) director long term care (current) use of antibiotics Complication of tracheostomy ([facility]/HCC) ([facility]) BRBPR (bright red blood per rectum) Hemoptysis SOB (shortness of breath) Moderate malnutrition ([facility]) ([facility]) Shortness of breath [3] [facility] 04-05-2025 Nurse Note Patient Name: Jun Snyder Patient : 1965 Acct: [id number] Date of Admission: 04/05/2025 Room/Bed: Code Status: [...] (0) 3 Regular None (Room air) Clear;Diminished [place];Ecchymosis Warm;Dry Soft Present pt consents to dialysis [...] - Before each treatment: Dialysis Machine No.: [id number] RO Machine Number: [id number] Dialyzer Lot No.: [id number] Tubing Lot Number: [id number] All Connections Secure: Yes Venous Parameters Set: Yes Arterial Parameters Set: Yes NS Bag: Yes Saline Line Double Clamped: Yes Dialyzer: Nipro Prime Volume (mL): 200 mL RO Machine Number: [id number] RO Machine Log Sheet Completed: Yes Machine Alarm Self Test: Completed, Passed (1351) (04/05/25 1351) Air Foam Detector: Tested, Proper Function Extracorporeal Circuit Tested for Integrity: Yes Machine Conductivity: 13.6 Manual Conductivity: 13.6 Manual Ph: 7 Bleach Test (Neg): Yes Bath Temperature: 36 C (96.8 F) Conductivity Meter Serial #: [id number] Machine Functioning Alarm Free? Yes Dialysis Bath: K+ (Potassium): 2 Ca+ (Calcium): 2.5 Na+ (Sodium): 137 HCO3 (Bicarb): 35 Bicarbonate Concentrate Lot No.: [id number] Acid Concentrate Lot No.: [id number] Chlorine Testing - Before each treatment and [...] Yes pt alert, no complaints, uf removal 2247 04/05/25 1703 250 mL/min -- -- -- -- [...] Active Problem List Diagnosis Anemia Paroxysmal A-fib ([facility]) ([facility]) HTN (hypertension) ESRD on hemodialysis ([facility]) ([facility]) IgA nephropathy determined by biopsy of kidney Diverticulosis Nonrheumatic aortic valve stenosis Calcification of abdominal aorta ([facility]) Missed vaccination due to patient refusal Tobacco abuse Alcohol use disorder in remission Atrial flutter, unspecified type ([facility]) RSV (acute bronchiolitis due to respiratory syncytial virus) Aortic stenosis Upper GI bleed S/P AVR Acute hypoxic respiratory failure ([facility]) Acute encephalopathy Pneumoperitoneum Gastric ulceration Severe malnutrition ([facility]) ([facility]) Pleural effusion Peritonitis due to fungus ([facility]) History of abdominal surgery Leg DVT (deep venous thromboembolism), acute, left ([facility]) 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, 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 of skin ([facility]) Tracheostomy dependence ([facility]) Leukocytosis Decubitus ulcer of sacral region, unstageable ([facility]) Pneumonia of both lungs due to methicillin susceptible Staphylococcus aureus (MSSA) ([facility]) Sacral osteomyelitis ([facility]) ([facility]) Acute respiratory failure with hypoxia ([facility]) [J96.01] Tracheostomy care ([facility]) [Z43.0] 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[facility]) half-way (current) use of antibiotics Complication of tracheostomy ([facility]) ([facility]) BRBPR (bright red blood per rectum) Hemoptysis SOB (shortness of breath) Moderate malnutrition ([facility]) ([facility]) Shortness of breath [3] documented in this encounter [facility] 04-05-2025 Emergency department Note Dialysis at bedside. [facility] 04-05-2025 Emergency department Note Dialysis at bedside. Pt has no complaints at this time. This is my ARMIN supervisory and shared visit note: I, Dieter Villegas MD, personally evaluated/saw the patient and [...] to contact the dictating provider for clarification. Dieter Villegas MD 04/05/25 1320 Pt here to the ER via EMS [...] and get vitals. documented in this encounter [facility] 04-05-2025 Miscellaneous Notes Formattin g of this note might be different from the original. Noted Spoke with patient's nurse from [facility]. Patient's nurse stated will need to cancel today's appointment. Nurse stated Patient was sent to [place] ER for tachycardia. Nurse stated can not complete dialysis with patient's tachycardia. Nurse stated Sabino who scheduled appointments will call the office at a later time to reschedule patient's appointment. BHAKTI to provider. documented in this encounter [facility] 04-05-2025 Telephone encount er Note Noted [facility] Work Phone: 04-05-2025 Emergency department Note Pt has no complaints at this time. [facility] 04-05-2025 Emergency department Triage note Pt [...] to hook pt up and get vitals. [facility] 04-05-2025 Physician Emergen cy department Note This is my ARMIN supervisory and shared visit note: I, Dieter Villegas MD, personally evaluated/saw the patient and [...] to contact the dictating provider for clarification. Dieter Villegas MD 04/05/25 1329 [facility] with [facility]'s nurse from [facility]. Patient's nurse stated will need to cancel today's appointment. Nurse stated Patient was sent to [place] ER for tachycardia. Nurse stated can not complete dialysis with patient's tachycardia. Nurse stated Sabino who scheduled appointments will call the office at a later time to reschedule patient's appointment. FYI to provider. [facility] 03-26-2025 Telephone [facility] er Note 3rd attempt unable to speak to Sabino she's not in the office at them moment. Left message to call the office back to schedule [facility] 03-26-2025 Miscellaneous Notes Formattin g of this [...] this? Thank you documented in this encounter [facility] 03-26-2025 Telephone encount er Note Sabino has been notified the visit can not be virtual [facility] 03-26-2025 Miscellaneous Notes Formattin g of this note might be different from the original. Sabino has been notified the visit can not be virtual Name of Caller: Bobbi Moncada Contact Reason for Appointment: Change 04/05/25 hospital follow up to a vv. Please call and advise. Office Name: [facility] Neurology Cindy documented in this encounter [facility] 03-26-2025 Telephone encount er Note Name of Caller: Bobbi Moncada Contact Reason for Appointment: Change 04/05/25 hospital follow up to a vv. Please call and advise. Office Name: [facility] Neurology Cindy [facility] 03-21-2025 Nurse Note Educated pt on importance of prescribed medications. Pt still refused. [facility] 03-21-2025 Nurse Note Educated pt on importance of prescribed medications. Pt still refused. Patient Name: Jun Snyder Patient : 1965 Acct: [id number] Date of Admission: 03/13/2025 [facility]: [facility] [...] 8.1 03/20/2025 0548 HGB 9.2 (L) 03/20/2025 05 HGB 11.8 (L) 03/13/2025 0902 HCT 30.3 [...] - Before each treatment: Dialysis Machine No.: [id number] RO Machine Number: [id number] Dialyzer Lot No.: [id number] Tubing Lot Number: [id number] All Connections Secure: Yes Venous Parameters Set: Yes Arterial Parameters Set: Yes NS Bag: Yes Saline Line Double Clamped: Yes Dialyzer: Nipro Prime Volume (mL): 200 mL RO Machine Number: [id number] RO Machine Log Sheet Completed: Yes Machine Alarm Self Test: Completed, Passed (03/20/25 1145) Air Foam Detector: Tested, Proper Function, pH Reading Extracorporeal Circuit Tested for Integrity: Yes Machine Conductivity: 13.8 Manual Conductivity: 13.8 Manual Ph: 7 Bleach Test (Neg): Yes Bath Temperature: 36 C (96.8 F) Conductivity Meter Serial #: [id number] Machine Functioning Alarm Free? Yes Dialysis Bath: K+ (Potassium): 2 Ca+ (Calcium): 2.5 Na+ (Sodium): 135 HCO3 (Bicarb): 35 Chlorine Testing - Before each treatment and every 4 hours: Time On: 1216 Time Off: 1516 Treatment Goal: 2L Weight Height: 177.8 cm (5' 10") (03/14/25 1617) Weight: 69.8 kg (153 lb 12.8 oz) (03/20/25 042) BMI (Calculated): 22.07 (03/20/25 0422) 1st check: less than 0.1 ppm at: [...] Other (Comment) (to inform patient arrival from [facility] and need for orders) Provider [...] Active Problem List Diagnosis Anemia Paroxysmal A-fib ([facility]) ([facility]) HTN (hypertension) ESRD on hemodialysis ([facility]) ([facility]) IgA nephropathy determined by biopsy of kidney Diverticulosis Nonrheumatic aortic valve stenosis Calcification of abdominal aorta ([facility]) Missed vaccination due to patient refusal Tobacco abuse Alcohol use disorder in remission Atrial flutter, unspecified type ([facility]) RSV (acute bronchiolitis due to respiratory syncytial virus) Aortic stenosis Upper GI bleed S/P AVR Acute hypoxic respiratory failure ([facility]) Acute encephalopathy Pneumoperitoneum Gastric ulceration Severe malnutrition ([facility]) ([facility]) Pleural effusion Peritonitis due to fungus ([facility]) History of abdominal surgery Leg DVT (deep venous thromboembolism), acute, left ([facility]) 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, 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 of skin ([facility]) Tracheostomy dependence ([facility]) Leukocytosis Decubitus ulcer of sacral region, unstageable ([facility]) Pneumonia of both lungs due to methicillin susceptible Staphylococcus aureus (MSSA) ([facility]) Sacral osteomyelitis (CMS/HCC) (HCC) Acute respiratory failure with hypoxia ([facility]) [J96.01] Tracheostomy care ([facility]) [Z43.0] 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[facility]) half-way (current) use of antibiotics Complication of tracheostomy (CMS/HCC) ([facility]) BRBPR (bright red blood per rectum) Hemoptysis SOB (shortness of breath) Moderate malnutrition (CMS/HCC) ([facility]) [3] heparin, 5-30 Units/kg/hr, Last Rate: 20 Units/kg/hr (03/20/25 1328) Wound vac suction failing-pt requesting wound vac removed for now. Black foam dressing removed and wound packed with saline-soaked gauze covered with DSD Pt adamantly refusing telemetry at this time, ripped off monitor and threw to the floor Patient Name: Jun Snyder Patient : 1965 Acct: [id number] Date of Admission: 03/13/2025 [facility]: [facility] [...] Lab Results Component Value Date/Time WBC 6.7 03/17/20257 HGB 10.0 (L) 03/17/202546 HGB 11.8 (L) 03/13/2025 0902 HCT 33.8 (L) 03/17/2025 004 PLT 407 03/17/2025 0047 NA 141 03/17/2025 0047 K 3.9 03/17/2025 0047 CL 104 03/17/2025 0047 CO2 25 03/17/2025 004 BUN 22 03/17/2025 004 CREATININE 3.25 (H) 03/17/2025 004 CREATININE 9.99 (H) 10/27/2019 0545 CALCIUM 9.6 03/17/20257 PHOS 2.6 02/23/2025 0032 IV Drips and Rate/Dose Continuous Meds[3] Safety - Before each treatment: Dialysis Machine No.: [id number] RO Machine Number: [id number] Dialyzer Lot No.: [id number] Tubing Lot Number: [id number] All Connections Secure: Yes Venous Parameters Set: Yes Arterial Parameters Set: Yes NS Bag: Yes Saline Line Double Clamped: Yes Dialyzer: Nipro Prime Volume (mL): 200 mL RO Machine Number: [id number] RO Machine Log Sheet Completed: Yes Machine Alarm Self Test: Completed, Passed (03/17/25 0803) Air Foam Detector: Tested, Proper Function, pH Reading Extracorporeal Circuit Tested for Integrity: Yes Machine Conductivity: 13.6 Manual Conductivity: 13.6 Manual Ph: 7 Bleach Test (Neg): Yes Bath Temperature: 36 C (96.8 F) Conductivity Meter Serial #: [id number] Machine Functioning Alarm Free? Yes Dialysis Bath: K+ (Potassium): 2 Ca+ (Calcium): 2.5 Na+ (Sodium): 135 HCO3 (Bicarb): 35 Chlorine Testing - Before each treatment and every 4 hours: Time On: 0841 Time Off: 1141 Treatment Goal: 2L Weight Height: 177.8 cm (5' 10") (03/14/25 1617) Weight: 64.4 kg (142 lb) (03/17/25 05) BMI (Calculated): 20.37 (03/17/25536) 1st check: less [...] Other (Comment) (to inform patient arrival from [facility] and need for orders) Provider [...] Active Problem List Diagnosis Anemia Paroxysmal A-fib ([facility]) ([facility]) HTN (hypertension) ESRD on hemodialysis ([facility]) ([facility]) IgA nephropathy determined by biopsy of kidney Diverticulosis Nonrheumatic aortic valve stenosis Calcification of abdominal aorta ([facility]) Missed vaccination due to patient refusal Tobacco abuse Alcohol use disorder in remission Atrial flutter, unspecified type ([facility]) RSV (acute bronchiolitis due to respiratory syncytial virus) Aortic stenosis Upper GI bleed S/P AVR Acute hypoxic respiratory failure ([facility]) Acute encephalopathy Pneumoperitoneum Gastric ulceration Severe malnutrition ([facility]) ([facility]) Pleural effusion Peritonitis due to fungus ([facility]) History of abdominal surgery Leg DVT (deep venous thromboembolism), acute, left ([facility]) 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, 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 of skin ([facility]) Tracheostomy dependence ([facility]) Leukocytosis Decubitus ulcer of sacral region, unstageable ([facility]) Pneumonia of both lungs due to methicillin susceptible Staphylococcus aureus (MSSA) ([facility]) Sacral osteomyelitis ([facility]) ([facility]) Acute respiratory failure with hypoxia ([facility]) [J96.01] Tracheostomy care ([facility]) [Z43.0] 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[facility]) half-way (current) use of antibiotics Complication of tracheostomy ([facility]) ([facility]) BRBPR (bright red blood per rectum) Hemoptysis SOB (shortness of breath) Moderate malnutrition ([facility]) ([facility]) [3] heparin, 5-30 Units/kg/hr Patient Name: Jun Snyder Patient : 1965 Acct: [id number] Date of Admission: 03/13/2025 [facility]: [facility] [...] - Before each treatment: Dialysis Machine No.: [id number] RO Machine Number: [id number] Dialyzer Lot No.: [id number] Tubing Lot Number: [id number] All Connections Secure: Yes Venous Parameters Set: Yes Arterial Parameters Set: Yes NS Bag: Yes Saline Line Double Clamped: Yes Dialyzer: Nipro Prime Volume (mL): 200 mL RO Machine Number: [id number] RO Machine Log Sheet Completed: Yes Machine Alarm Self Test: Completed, Passed (03/15/25 1215) Air Foam Detector: Tested, Proper Function, pH Reading Extracorporeal Circuit Tested for Integrity: Yes Machine Conductivity: 13.8 Manual Conductivity: 13.7 Manual Ph: 7 Bleach Test (Neg): Yes Bath Temperature: 36 C (96.8 F) Conductivity Meter Serial #: [id number] Machine Functioning Alarm Free? Yes Dialysis Bath: [...] Other (Comment) (to inform patient arrival from [facility] and need for orders) Provider [...] Active Problem List Diagnosis Anemia Paroxysmal A-fib ([facility]) ([facility]) HTN (hypertension) ESRD on hemodialysis ([facility]) ([facility]) IgA nephropathy determined by biopsy of kidney Diverticulosis Nonrheumatic aortic valve stenosis Calcification of abdominal aorta ([facility]) Missed vaccination due to patient refusal Tobacco abuse Alcohol use disorder in remission Atrial flutter, unspecified type ([facility]) RSV (acute bronchiolitis due to respiratory syncytial virus) Aortic stenosis Upper GI bleed S/P AVR Acute hypoxic respiratory failure ([facility]) Acute encephalopathy Pneumoperitoneum Gastric ulceration Severe malnutrition ([facility]) ([facility]) Pleural effusion Peritonitis due to fungus ([facility]) History of abdominal surgery Leg DVT (deep venous thromboembolism), acute, left ([facility]) 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, 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 of skin ([facility]) Tracheostomy dependence ([facility]) Leukocytosis Decubitus ulcer of sacral region, unstageable ([facility]) Pneumonia of both lungs due to methicillin susceptible Staphylococcus aureus (MSSA) ([facility]) Sacral osteomyelitis (CMS/HCC) ([facility]) Acute respiratory failure with hypoxia ([facility]) [J96.01] Tracheostomy care ([facility]) [Z43.0] 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[facility]) director long term care (current) use of antibiotics Complication of tracheostomy (CMS/HCC) ([facility]) BRBPR (bright red blood per rectum) Hemoptysis SOB (shortness of breath) Moderate malnutrition (CMS/HCC) ([facility]) [3] Wound Care consulted for Pressure Injury Prevention. Pt's Kee score= 14 on 03/13 Pt's pressure points assessed. Pt's Heels, Back, Elbows, Occiput and ears all intact. [place] and healed area noted to occiput. Pt moving lower extremities well in bed against gravity. Pt currently followed by Wound TELECINE OPERATOR group for wounds to left toes 1-4 and sacrum with wound vac in place. For left toes, sacrum, and sacral wound vac assessments and treatment plan, please see Wound/Ostomy TELECINE OPERATOR progress notes. Instructed pt on pressure injury prevention and importance of turning/postioning every 2hrs while in bed and every 15 min while sitting in chair. Instructed on use and care of waffle chair cushion. Verbalized understanding. Prevention Measures in place, including: [place] sheet with pillows/wedges, Heels elevated off bed on pillows, Zinc/Moisture Barrier ointment (obtained), Waffle chair cushion (obtained for pt). Skin Care precaution order set in place. Dietitian consult order placed d/t wounds. PT/OT consult in place. Will continue to follow pt. Please Vocera for any questions or concerns. Yari Pelletier RN Patient Name: Jun Snyder Patient : 1965 Acct: [id number] Date of Admission: 03/13/2025 [facility] [...] - Before each treatment: Dialysis Machine No.: [id number] RO Machine Number: [id number] Dialyzer Lot No.: [id number] Tubing Lot Number: [id number] All Connections Secure: Yes Venous Parameters Set: Yes Arterial Parameters Set: Yes NS Bag: Yes Saline Line Double Clamped: Yes Dialyzer: Nipro Prime Volume (mL): 200 mL RO Machine Number: [id number] RO Machine Log Sheet Completed: Yes Machine Alarm Self Test: Completed, Passed (03/14/251134) Air Foam Detector: Tested, Proper Function, pH Reading Extracorporeal Circuit Tested for Integrity: Yes Machine Conductivity: 13.7 Manual Conductivity: 13.6 Manual Ph: 7 Bleach Test (Neg): Yes Bath Temperature: 36 C (96.8 F) Conductivity Meter Serial #: [id number] Machine Functioning Alarm Free? Yes Dialysis Bath: [...] Other (Comment) (to inform patient arrival from [facility] and need for orders) Provider [...] with hypoxia (HCC) [J96.01] Tracheostomy care ([facility]) [Z43.0] 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HCC) director long term care (current) use of antibiotics Complication of tracheostomy (CMS/HCC) (HCC) BRBPR (bright red blood per rectum) Hemoptysis SOB (shortness of breath) [3] Removed wound vac that patient arrived to 5w from [facility] pictures of all wound taken on rover and saved to chart [place] DSD applied to sacral wound documented in this encounter [facility] 03-21-2025 Note Formatting of this n ote might be different from the original. MAR, Labs & Discharge med list transmitted to [facility] via [facility] per TCC request. [facility] 03-21-2025 Note Formatting of this n ote might be different from the original. MAR, Labs & Discharge med list transmitted to [facility] via [facility] per TCC request. Electronically signed by INSOLE STIFFENER Sabino Rodrigues [facility] 03-21-2025 Miscellaneous Notes Formattin g of this note might be different from the original. MAR, Labs & Discharge med list transmitted to [facility] via [employer] per TCC request. Transport requested in [employer]. Awaiting time confirmation. Confirmed pickup time of 5:00PM by transport company [employer] at phone number . Location of facility drop off is [facility]. Facility notified via [employer], Kaity Rivera notified on secure chat. Care Management Progress Note Short Medical why still here: Heparin gtt stopped today. . INR 2.9 today. Getting Coumadin. Refusing to work with therapy. They would like to skill him if able. Planned Discharge Disposition: Snf/Residential Care Barriers/Today we still Wait: Administering IV [...] Coumadin. INR 1.9 today Planned Discharge Disposition: Snf/Residential Care Barriers/Today we still Wait: Clinical stability [...] When stable plan is to return to [facility].. . Length of Stay (Days): 6 [...] When stable is a bed hold at [facility]. . Length of Stay (Days): 2 [...] therapies are following. Wants to return to [facility]. Is a bed hold, but if they can skill him they would like to.. Length of Stay (Days): 1 GMLOS: No GMLOS Documented Referral placed to [facility]. Await review and response regarding ability to accept. TCC notified. Problem: Knowledge Deficit Goal: Patient/family/caregiver demonstrates understanding of disease process, treatment plan, medications, and discharge instructions Outcome: Progressing Problem: Potential for Compromised Skin Integrity Goal: Skin Integrity is Maintained or Improved Outcome: Progressing documented in this encounter [facility] 03-21-2025 Note Formatting of this n ote might be different from the original. Transport requested in Roundtrip. Awaiting time confirmation. Confirmed pickup time of 5:00PM by transport Mc4 at phone number . Location of facility drop off is [facility]. Facility notified via [email or web address] notified on secure chat. [facility] 03-21-2025 Note Formatting of this n ote might be different from the original. Transport requested in Roundtrip. Awaiting time confirmation. Confirmed pickup time of 5:00PM by transport company Consuelo Mitchell at phone number . Location of facility drop off is [facility]. Facility notified via Ariel Kaity Fartun Rivera notified on secure chat. [facility] 03-21-2025 Note [facility] Hospital course Narrative Discharge [...] Klebsiella pneumonia with lung abscess presented to [place] ED with worsening shortness of breath. He [...] Complexity: follow up within 7-14 calendar days (31441) [x] Severe Complexity: follow up within 7 calendar days (71557) FOLLOW UP TESTING, PENDING RESULTS OR REFERRALS AT TRANSITIONAL CARE VISIT: [] Yes [x] No PENDING STUDIES: None DISPOSITION: [facility] Facility (Non-Skilled) FACILITY/HOME CARE AGENCY NAME: [facility] Follow up with [address] [facility] [id number] Follow up INSTRUCTIONS TO MA/SW: Please [...] 03/21/2025, 12:07 PM documented in this encounter [facility] 03-21-2025 History of Presen t illness Narrative Patient quit smoking in September. Accepting of handout with contact information for additional support to remain quit if neccesary. Hospitalist Progress Note Subjective: Admit Date: 03/13/2025 PCP: Leilani Troncoso Room#: [id number] A Chief complaint: Shortness of breath Brief Hospital course: Jun is a 59 y.o. male with past medical history of hypertension, IgA nephropathy, ESRD on HD, CAD, history of CABG, history of intracranial bleed, paroxysmal A-fib aortic stenosis, s/p mechanical valve replacement recent admission here from 02/20-03/05 for hemoptysis due to Klebsiella pneumonia with lung abscess presented to [place] ED with worsening shortness of breath. He [...] CBC: Recent Labs 03/19/25 0752 03/20/25 0548 03/21/25623 WBC 7.8 8.1 8.0 RBC 2.98* 3.00* 2.91* HGB 8.9* 9.2* 8.8* HCT 30.4* 30.3* 29.2* MCV 102.0* 101.0* 100.3* RDW 20.8* 20.2* 19.9* PLT 320 308 271 BMP: Recent Labs 03/19/25 0752 03/20/25 0548 03/21/25623 NA 137 136 134* K 4.0 5.3* [...] Snydered Mobile Relation: Child Secondary Emergency Contact: TarunBiju cabralya Mobile Relation: Partner Anu Castro MD Division of Hospital Medicine Inpatient Medical Services/[facility] [1] Past Medical History: Diagnosis Date Acute renal failure (ARF) ([facility]) 10/19/2019 Anemia 12/30/2021 Calcification of abdominal aorta ([facility]) 10/08/202309/[address] abd Diverticulosis 10/08/2023 ESRD on hemodialysis ([facility]) ([facility]) 10/26/2019 Hemodialysis patient ([facility]) ([facility]) HTN (hypertension) 12/01/2022 Hypertension IgA nephropathy IgA nephropathy determined by biopsy of kidney 10/26/2019 Missed vaccination due to patient refusal 10/08/2023 Has a number of non-scientific based beliefs which interfere with his understanding and acceptance of the medical benefit of vaccination. Nonrheumatic aortic valve stenosis 10/08/2023 Paroxysmal A-fib ([facility]) ([facility]) 08/18/2023 Tobacco abuse 10/08/2023 [2] Lidocaine, 1 [...] Diagnosis Date Acute renal failure (ARF) ([facility]) 10/19/2019 Anemia 12/30/2021 Calcification of abdominal aorta ([facility]) 10/08/202309/[address] abd Diverticulosis 10/08/2023 ESRD on hemodialysis ([facility]) ([facility]) 10/26/2019 Hemodialysis patient ([facility]) ([facility]) HTN (hypertension) 12/01/2022 Hypertension IgA nephropathy IgA nephropathy determined by biopsy of kidney 10/26/2019 Missed vaccination due to patient refusal 10/08/2023 Has a number of non-scientific based beliefs which interfere with his understanding and acceptance of the medical benefit of vaccination. Nonrheumatic aortic valve stenosis 10/08/2023 Paroxysmal A-fib ([facility]) ([facility]) 08/18/2023 Tobacco abuse 10/08/2023 Images from the original note were not included. PHYSICAL THERAPY [facility] Name/MRN: Jair Snyder ([id number]) Date: 03/21/2025 Chart review completed this date. [...] Tay PT at 03/21/2025 2:58 PM EDT [facility] ([facility]) Inpatient Warfarin [...] management once discharged from SNF. Fatuma Odonnell RPh, PharmD [facility] is available daily [phone] via [employer]. If no response on Hitch Radio Chat then please page [phone]. [1] Past Medical History: Diagnosis Date Acute renal failure (ARF) (HCC) 10/19/2019 Anemia 12/30/2021 Calcification of abdominal aorta (H[facility]) 10/08/202309/[address] abd Diverticulosis 10/08/2023 ESRD on hemodialysis ([facility] ([facility]) 10/26/2019 Hemodialysis patient ([facility]) ([facility]) HTN (hypertension) 12/01/2022 Hypertension IgA nephropathy IgA nephropathy determined by biopsy of kidney 10/26/2019 Missed vaccination due to patient refusal 10/08/2023 Has a number of non-scientific based beliefs which interfere with his understanding and acceptance of the medical benefit of vaccination. Nonrheumatic aortic valve stenosis 10/08/2023 Paroxysmal A-fib ([facility]) ([facility]) 08/18/2023 Tobacco abuse 10/08/2023 Nutrition Assessment Type [...] Klebsiella pneumonia with lung abscess presented to [place] ED with worsening shortness of breath. He [...] Net IO Since Admission: 3,307.87 mL [03/20/25 1753] Intake/Output Summary (Last 24 hours) at 03/20/2025 [...] supplement: Chocolate Ensure Plus High Protein 03/14/25 1801 03/13/25 1743 Adult diet Regular; Low Sodium (2 [...] (Aug 2024) % Weight Change (Calculated): -28.6 [place] Body Weight (lbs) (Calculated): 166 lbs [place] Body Weight (Kg) (Calculated): 75 kg % [place] Body Weight (Calculated): 88.6 % BMI (kg/m2) [...] Yasemin Ceron MS, RD, LD Contact: or Hitch Radio Chat (dial *[phone] from hospital phone) [1] Lidocaine, 1 patch, Topical, Daily metoprolol tartrate, 50 mg, Oral, BID pantoprazole, 40 mg, Oral, BID AC sevelamer carbonate, 800 mg, Oral, TID WC sodium zirconium cyclosilicate, 5 g, Oral, Daily [2] heparin, 5-30 Units/kg/hr, Last Rate: 20 Units/kg/hr (03/20/25 1643) [facility] ([facility]) Inpatient Warfarin Consult [...] dose accordingly. 4. Warfarin is followed by [facility] outpatient. [facility] will manage inpatient and take over management once discharged from [facility]. Michael Koehler PharmD candidate 2025, staffed with Fatuma Odonnell PharmD, [facility] is available daily [phone] via [employer]. If no response on [employer] then please page [phone]. [1] Past Medical History: Diagnosis Date Acute renal failure (ARF) ([facility]) 10/19/2019 Anemia 12/30/2021 Calcification of abdominal aorta ([facility]) 10/08/202309/[address] abd Diverticulosis 10/08/2023 ESRD on hemodialysis ([facility] ([facility]) 10/26/2019 Hemodialysis patient ([facility]) ([facility]) HTN (hypertension) 12/01/2022 Hypertension IgA nephropathy IgA nephropathy determined by biopsy of kidney 10/26/2019 Missed vaccination due to patient refusal 10/08/2023 Has a number of non-scientific based beliefs which interfere with his understanding and acceptance of the medical benefit of vaccination. Nonrheumatic aortic valve stenosis 10/08/2023 Paroxysmal A-fib ([facility]) ([facility]) 08/18/2023 Tobacco abuse 10/08/2023 Cosigned by Fatuma Odonnell [facility] at 03/20/2025 10:38 AM EDT Hospitalist Progress [...] Klebsiella pneumonia with lung abscess presented to [place] ED with worsening shortness of breath. He [...] 1038.87 ml LABS: CBC: Recent Labs 03/18/25 0159 03/19/25 0752 03/20/25 0548 WBC 7.6 7.8 8.1 RBC 3.03* 2.98* 3.00* HGB 9.1* 8.9* 9.2* HCT 30.4* 30.4* 30.3* MCV 100.3* 102.0* 101.0* RDW 20.6* 20.8* 20.2* PLT 333 320 308 BMP: Recent Labs 03/18/25 0159 03/19/25 0752 03/20/25 0548 NA 139 137 136 K 3.4* 4.0 5.3* CL 100 102 102 CO2 29 27 24 BUN 16 24* 32* CREATININE 2.64* 3.67* 4.28* GLUCOSE 73* 85 91 CALCIUM 9.0 9.0 9.1 ANIONGAP 10 8 10 LIVER PROFILE: Recent Labs 03/18/25 01503/19/25 0752 03/20/25 0548 AST 50* 52* 46* ALT 11 14 13 BILITOT 0.8 0.9 0.8 ALKPHOS 241* 221* 194* PROT 7.3 7.4 7.3 PT/INR: Recent Labs 03/18/25 01503/19/25 0752 03/20/25 0548 PROTIME 15.2* 17.0* 19.1* [...] MD Division of Hospital Medicine Inpatient Medical Services/[facility] [1] Past Medical History: Diagnosis Date Acute renal failure (ARF) ([facility]) 10/19/2019 Anemia 12/30/2021 Calcification of abdominal aorta ([facility]) 10/08/202309/[address] abd Diverticulosis 10/08/2023 ESRD on hemodialysis ([facility] ([facility]) 10/26/2019 Hemodialysis patient ([facility] ([facility]) HTN (hypertension) 12/01/2022 Hypertension IgA nephropathy IgA nephropathy determined by biopsy of kidney 10/26/2019 Missed vaccination due to patient refusal 10/08/2023 Has a number of non-scientific based beliefs which interfere with his understanding and acceptance of the medical benefit of vaccination. Nonrheumatic aortic valve stenosis 10/08/2023 Paroxysmal A-fib ([facility]) ([facility]) 08/18/2023 Tobacco abuse 10/08/2023 [2] Lidocaine, 1 [...] Diagnosis Date Acute renal failure (ARF) ([facility]) 10/19/2019 Anemia 12/30/2021 Calcification of abdominal aorta ([facility]) 10/08/202309/[address] abd Diverticulosis 10/08/2023 ESRD on hemodialysis ([facility]) ([facility]) 10/26/2019 Hemodialysis patient ([facility] ([facility]) HTN (hypertension) 12/01/2022 Hypertension IgA nephropathy IgA nephropathy determined by biopsy of kidney 10/26/2019 Missed vaccination due to patient refusal 10/08/2023 Has a number of non-scientific based beliefs which interfere with his understanding and acceptance of the medical benefit of vaccination. Nonrheumatic aortic valve stenosis 10/08/2023 Paroxysmal A-fib ([facility]) ([facility]) 08/18/2023 Tobacco abuse 10/08/2023 [facility] ([facility]) Inpatient Warfarin Consult [...] dose accordingly. 3. Warfarin is followed by [facility] outpatient. [facility] will manage inpatient and take over management once discharged from [facility]. Michael Koehler PharmD candidate 2025, staffed with Fatuma Odonnell PharmD, [facility] is available daily [phone] via [employer]. If no response on [employer] Chat then please page [phone]. [1] Past Medical History: Diagnosis Date Acute renal failure (ARF) ([facility]) 10/19/2019 Anemia 12/30/2021 Calcification of abdominal aorta ([facility]) 10/08/202309/[address] abd Diverticulosis 10/08/2023 ESRD on hemodialysis ([facility] ([facility]) 10/26/2019 Hemodialysis patient ([facility] ([facility]) HTN (hypertension) 12/01/2022 Hypertension IgA nephropathy IgA nephropathy determined by biopsy of kidney 10/26/2019 Missed vaccination due to patient refusal 10/08/2023 Has a number of non-scientific based beliefs which interfere with his understanding and acceptance of the medical benefit of vaccination. Nonrheumatic aortic valve stenosis 10/08/2023 Paroxysmal A-fib ([facility]) ([facility]) 08/18/2023 Tobacco abuse 10/08/2023 Cosigned by Fatmua Odonnell RPh at 03/19/2025 2:39 PM EDT Images from the original note were not included. [facility]ound [facility] Progress Note Jun Snyder [...] to follow Recommend to follow up at [facility] wound care center after hospital discharge. [...] Diagnosis Date Acute renal failure (ARF) ([facility]) 10/19/2019 Anemia 12/30/2021 Calcification of abdominal aorta ([facility]) 10/08/202309/[address] abd Diverticulosis 10/08/2023 ESRD on hemodialysis ([facility] ([facility]) 10/26/2019 Hemodialysis patient ([facility] ([facility]) HTN (hypertension) 12/01/2022 Hypertension IgA nephropathy IgA [...] 10/09/2024 Performed by Bob Watson MD at [facility] Cardiac Cath/EP Lab CARDIAC CATHETERIZATION Bilateral 11/01/2024 Performed by Bob Watson MD at [facility] Cardiac Cath/EP Lab CARDIAC CATHETERIZATION N/A 11/01/2024 Performed by Bob Watson MD at [facility] Cardiac Cath/EP Lab COLONOSCOPY N/A 01/24/2025 Performed by Chadd Davis MD at [facility] ENDOSCOPY FISTULAGRAM (HISTORICAL) Left 09/15/2021 LEFT UPPER ARM HX AV FISTULA CREATION IR EMBOLIZATION 10/14/2024 IR EMBOLIZATION 10/14/2024 [facility] SPECIAL PROCEDURES IR FISTULAGRAM 08/07/2022 IR [...] with Shortness of Breath Pt arrived from long term via EMS. Pt was starting dialysis and [...] Klebsiella pneumonia with lung abscess presented to [place] ED with worsening shortness of breath. He [...] in upper abdomen He was transferred from [place] ED to [facility] due to bed availability Nephrology consulted, [...] PLT 407 333 320 BMP: Recent Labs 03/17/254603/18/25 01503/19/25 0752 NA 141 139 137 K 3.9 3.4* 4.0 CL 104 100 102 CO2 25 29 27 BUN 22 16 24* CREATININE 3.25* 2.64* 3.67* GLUCOSE 87 73* 85 CALCIUM 9.6 9.0 9.0 ANIONGAP 12 10 8 LIVER PROFILE: Recent Labs 03/17/254603/18/25 0159 03/19/25 0752 AST 54* 50* 52* ALT 15 11 14 BILITOT 0.9 0.8 0.9 ALKPHOS 223* 241* 221* PROT 8.0 7.3 7.4 PT/INR: Recent Labs 03/17/254603/18/25 0159 03/19/25 0752 PROTIME 16.0* 15.2* 17.0* INR 1.5* [...] Date -1 to 2 days - Location -[facility] - Pending the following -clinical course, subtherapeutic INR, on bridging with heparin drip Total time spent (which include face to face and non face to face encounters) : 38.5 minutes Extended Emergency Contact Information Primary Emergency Contact: Omar Snyder Mobile Relation: Child Secondary Emergency Contact: Toma Mcneil Mobile Relation: Partner Barb Dawkins MD Division of Hospital Medicine Inpatient Medical Services/[facility] [1] Past Medical History: Diagnosis Date Acute renal failure (ARF) ([facility]) 10/19/2019 Anemia 12/30/2021 Calcification of abdominal aorta ([facility]) 10/08/202309/[address] abd Diverticulosis 10/08/2023 ESRD on hemodialysis ([facility] ([facility]) 10/26/2019 Hemodialysis patient ([facility] ([facility]) HTN (hypertension) 12/01/2022 Hypertension IgA nephropathy IgA nephropathy determined by biopsy of kidney 10/26/2019 Missed vaccination due to patient refusal 10/08/2023 Has a number of non-scientific based beliefs which interfere with his understanding and acceptance of the medical benefit of vaccination. Nonrheumatic aortic valve stenosis 10/08/2023 Paroxysmal A-fib ([facility]) ([facility]) 08/18/2023 Tobacco abuse 10/08/2023 [2] Lidocaine, 1 [...] Diagnosis Date Acute renal failure (ARF) ([facility]) 10/19/2019 Anemia 12/30/2021 Calcification of abdominal aorta ([facility]) 10/08/202309/[address] abd Diverticulosis 10/08/2023 ESRD on hemodialysis ([facility] ([facility]) 10/26/2019 Hemodialysis patient ([facility] ([facility]) HTN (hypertension) 12/01/2022 Hypertension IgA nephropathy IgA nephropathy determined by biopsy of kidney 10/26/2019 Missed vaccination due to patient refusal 10/08/2023 Has a number of non-scientific based beliefs which interfere with his understanding and acceptance of the medical benefit of vaccination. Nonrheumatic aortic valve stenosis 10/08/2023 Paroxysmal A-fib ([facility]) ([facility]) 08/18/2023 Tobacco abuse 10/08/2023 Nephrology Progress Note [...] lower extremity edema Data: Labs: Recent Labs 03/17/257 03/18/25 015 WBC 6.7 7.6 HGB 10.0* 9.1* HCT 33.8* 30.4* MCV 102.1* 100.3* PLT 407 333 Recent Labs 03/17/254603/18/25158 NA 141 139 K 3.9 3.4* CL [...] sacral wound. Wellington Nicole MD' Please call [phone] or message me through [employer] with any questions or concerns. Nephrology Progress [...] lower extremity edema Data: Labs: Recent Labs 03/16/25 01503/17/25 0047 03/18/25 0159 WBC 7.0 6.7 7.6 HGB 9.1* 10.0* 9.1* HCT 30.2* 33.8* 30.4* MCV 100.0* 102.1* 100.3* PLT 372 407 333 Recent Labs 03/16/25 01503/17/25 0047 03/18/25 0159 NA 139 141 139 K 4.1 3.9 [...] sacral wound. Wellington Nicole MD' Please call [phone] or message me through [employer] with any questions or concerns. Hospitalist Progress Note Subjective: Admit Date: 03/13/2025 PCP: Leilani Troncoso Room#: [id number] A Chief Complaint Patient presents with Shortness of Breath Pt arrived from long term via EMS. Pt was starting dialysis and [...] Klebsiella pneumonia with lung abscess presented to [place] ED with worsening shortness of breath. He [...] in upper abdomen He was transferred from [place] ED to [facility] due to bed availability Nephrology consulted, [...] 03/18/2025 0753 Last data filed at 03/17/2025 194 Gross per 24 hour Intake 520 ml Output 100 ml Net 420 ml LABS: CBC: Recent Labs 03/16/2515403/17/254603/18/25158 WBC 7.0 6.7 7.6 RBC 3.02* 3.31* 3.03* HGB 9.1* 10.0* 9.1* HCT 30.2* 33.8* 30.4* MCV 100.0* 102.1* 100.3* RDW 21.2* 21.2* 20.6* PLT 372 407 333 BMP: Recent Labs 03/16/2515403/17/254603/18/25158 NA 139 141 139 [...] MD Division of Hospital Medicine Inpatient Medical Services/[facility] [1] Past Medical History: Diagnosis Date Acute renal failure (ARF) ([facility]) 10/19/2019 Anemia 12/30/2021 Calcification of abdominal aorta ([facility]) 10/08/202309/[address] abd Diverticulosis 10/08/2023 ESRD on hemodialysis ([facility] ([facility]) 10/26/2019 Hemodialysis patient ([facility] ([facility]) HTN (hypertension) 12/01/2022 Hypertension IgA nephropathy IgA nephropathy determined by biopsy of kidney 10/26/2019 Missed vaccination due to patient refusal 10/08/2023 Has a number of non-scientific based beliefs which interfere with his understanding and acceptance of the medical benefit of vaccination. Nonrheumatic aortic valve stenosis 10/08/2023 Paroxysmal A-fib ([facility]) ([facility]) 08/18/2023 Tobacco abuse 10/08/2023 [2] Lidocaine, 1 patch, Topical, Daily metoprolol tartrate, 50 mg, Oral, BID pantoprazole, 40 mg, Oral, BID AC sevelamer carbonate, 800 mg, Oral, TID WC sodium zirconium cyclosilicate, 5 g, Oral, Daily [3] PRN medications: acetaminophen OR acetaminophen, heparin, heparin, ipratropium-albuterol, melatonin, ondansetron ODT OR ondansetron, polyethylene glycol (PEG) 3350 [4] heparin, 5-30 Units/kg/hr, Last Rate: 19 Units/kg/hr (03/17/25 1948) [5] Past Medical History: Diagnosis Date Acute renal failure (ARF) ([facility]) 10/19/2019 Anemia 12/30/2021 Calcification of abdominal aorta ([facility]) 10/08/202309/[address] abd Diverticulosis 10/08/2023 ESRD on hemodialysis ([facility] ([facility]) 10/26/2019 Hemodialysis patient ([facility] ([facility]) HTN (hypertension) 12/01/2022 Hypertension IgA nephropathy IgA nephropathy determined by biopsy of kidney 10/26/2019 Missed vaccination due to patient refusal 10/08/2023 Has a number of non-scientific based beliefs which interfere with his understanding and acceptance of the medical benefit of vaccination. Nonrheumatic aortic valve stenosis 10/08/2023 Paroxysmal A-fib ([facility]) ([facility]) 08/18/2023 Tobacco abuse 10/08/2023 [facility]tico[facility] ([facility]) Inpatient Warfarin Consult [...] RPh, PharmD, BCPS SAILAJA is available daily [phone] via [employer]. If no response on [employer] Chat then please page [phone]. [1] Past Medical History: Diagnosis Date Acute renal failure (ARF) ([facility]) 10/19/2019 Anemia 12/30/2021 Calcification of abdominal aorta ([facility]) 10/08/202309/[address] abd Diverticulosis 10/08/2023 ESRD on hemodialysis ([facility] ([facility]) 10/26/2019 Hemodialysis patient ([facility] ([facility]) HTN (hypertension) 12/01/2022 Hypertension IgA nephropathy IgA nephropathy determined by biopsy of kidney 10/26/2019 Missed vaccination due to patient refusal 10/08/2023 Has a number of non-scientific based beliefs which interfere with his understanding and acceptance of the medical benefit of vaccination. Nonrheumatic aortic valve stenosis 10/08/2023 Paroxysmal A-fib ([facility]) ([facility]) 08/18/2023 Tobacco abuse 10/08/2023 Hospitalist Progress Note Subjective: Admit Date: 03/13/2025 PCP: Leilani Troncoso Room#: [id number] A Chief Complaint Patient presents with Shortness of Breath Pt arrived from long term via EMS. Pt was starting dialysis and [...] Klebsiella pneumonia with lung abscess presented to [place] ED with worsening shortness of breath. He [...] in upper abdomen He was transferred from [place] ED to [facility] due to bed availability Nephrology consulted, [...] ending 03/17/25 0933 LABS: CBC: Recent Labs 03/15/25 0434 03/16/25 0155 03/17/25 0047 WBC 6.7 7.0 6.7 RBC 3.02* 3.02* 3.31* HGB 9.2* 9.1* 10.0* HCT 30.1* 30.2* 33.8* MCV 99.7* 100.0* 102.1* RDW 21.3* 21.2* 21.2* PLT 392 372 407 BMP: Recent Labs 03/15/254 03/16/2515403/17/2546 NA 139 139 141 K 4.5 4.1 3.9 CL 100 104 104 CO2 28 26 25 BUN 30* 18 22 CREATININE 3.13* 2.35* 3.25* GLUCOSE 91 83 87 CALCIUM 9.2 9.1 9.6 ANIONGAP 11 9 12 LIVER PROFILE: Recent Labs 03/15/2543303/16/2515403/17/2546 AST 49* 47* 54* ALT 14 13 15 BILITOT 0.8 0.9 0.9 ALKPHOS 201* 194* 223* PROT 7.6 7.3 8.0 PT/INR: Recent Labs 03/15/2543303/16/2515403/17/2546 PROTIME 17.9* 17.3* 16.0* INR 1.7* 1.7* [...] MD Division of Hospital Medicine Inpatient Medical Services[facility] [facility] [1] Past Medical History: Diagnosis Date Acute renal failure (ARF) ([facility]) 10/19/2019 Anemia 12/30/2021 Calcification of abdominal aorta ([facility]) 10/08/202309/[address] abd Diverticulosis 10/08/2023 ESRD on hemodialysis ([facility]) ([facility]) 10/26/2019 Hemodialysis patient ([facility]) ([facility]) HTN (hypertension) 12/01/2022 Hypertension IgA nephropathy IgA nephropathy determined by biopsy of kidney 10/26/2019 Missed vaccination due to patient refusal 10/08/2023 Has a number of non-scientific based beliefs which interfere with his understanding and acceptance of the medical benefit of vaccination. Nonrheumatic aortic valve stenosis 10/08/2023 Paroxysmal A-fib ([facility]) ([facility]) 08/18/2023 Tobacco abuse 10/08/2023 [2] Lidocaine, 1 [...] Diagnosis Date Acute renal failure (ARF) ([facility]) 10/19/2019 Anemia 12/30/2021 Calcification of abdominal aorta (HCC) 10/08/202309/[address] abd Diverticulosis 10/08/2023 ESRD on hemodialysis ([facility]) ([facility]) 10/26/2019 Hemodialysis patient ([facility]) ([facility]) HTN (hypertension) 12/01/2022 Hypertension IgA nephropathy IgA [...] sacral wound. Wellington Nicole MD' Please call [phone] or message me through Hitch Radio with any questions or concerns. [facility] Anticoagulation Management Service ([facility]) Inpatient Warfarin Consult [...] Mireles RPh, PharmD [facility] is available daily [phone] via [employer]. If no response on Hitch Radio Chat then please page [phone]. [1] Past Medical History: Diagnosis Date Acute renal failure (ARF) ([facility]) 10/19/2019 Anemia 12/30/2021 Calcification of abdominal aorta ([facility]) 10/08/202309/[address] abd Diverticulosis 10/08/2023 ESRD on hemodialysis ([facility]) ([facility]) 10/26/2019 Hemodialysis patient ([facility]) ([facility]) HTN (hypertension) 12/01/2022 Hypertension IgA nephropathy IgA nephropathy determined by biopsy of kidney 10/26/2019 Missed vaccination due to patient refusal 10/08/2023 Has a number of non-scientific based beliefs which interfere with his understanding and acceptance of the medical benefit of vaccination. Nonrheumatic aortic valve stenosis 10/08/2023 Paroxysmal A-fib ([facility]) ([facility]) 08/18/2023 Tobacco abuse 10/08/2023 Images from the original note were not included. OCCUPATIONAL THERAPY [facility] Initial Evaluation Name/MRN: Jair Snyder ([id number]) Evaluation Date: 03/16/2025 Date of : 1965 Admission Date: 03/13/2025 8:18 AM Age: 59 y.o. [facility] Facility Assessment IMPRESSION: Pt presented with SOB, [...] in bed, agreeable to OT eval. Pain: Michel-Babcock Pain Ratin = Hurts whole lot Pain Location: sacral wound Past Medical History: Medical History[1] Past Surgical History: Surgical History[2] Admission Diagnosis: Patient Active Problem List Diagnosis Date Noted Moderate malnutrition ([facility]) ([facility]) 03/14/2025 SOB (shortness of breath) 03/13/2025 Severe malnutrition ([facility]/H[facility]) ([facility]) 02/21/2025 Hemoptysis 02/20/2025 Complication of tracheostomy ([facility]) ([facility]) 01/19/2025 director long term care (current) use of antibiotics 01/12/2025 Acute respiratory failure with hypoxia ([facility]) [J96.01] 01/08/2025 Tracheostomy care ([facility]) [Z43.0] 01/08/2025 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[facility]) 01/08/2025 Sacral osteomyelitis ([facility]/H[facility]) ([facility]) 01/03/2025 Pneumonia of both lungs due to methicillin susceptible Staphylococcus aureus (MSSA) ([facility]) 01/01/2025 Leukocytosis 12/30/2024 Decubitus ulcer of sacral region, unstageable ([facility]) 12/30/2024 Peritonitis due to fungus ([facility]) 11/30/2024 History of abdominal surgery 11/30/2024 Leg DVT (deep venous thromboembolism), acute, left ([facility]) 11/30/2024 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, 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 of skin ([facility]) 11/30/2024 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 Pleural effusion 11/28/2024 Gastric ulceration 2024 Atrial flutter, unspecified type ([facility]) 10/03/2024 RSV (acute bronchiolitis due to respiratory syncytial virus) 10/03/2024 Diverticulosis 10/08/2023 Nonrheumatic aortic valve stenosis 10/08/2023 Calcification of abdominal aorta ([facility]) 10/08/2023 Missed vaccination due to patient refusal 10/08/2023 Tobacco abuse 10/08/2023 Alcohol use disorder in remission 10/08/2023 Paroxysmal A-fib ([facility]) ([facility]) 08/18/2023 HTN (hypertension) 12/01/2022 ESRD on hemodialysis ([facility]) ([facility]) 10/26/2019 IgA nephropathy determined by biopsy of kidney 10/26/2019 BRBPR (bright red blood per rectum) 01/19/2025 Aortic stenosis 10/03/2024 Upper GI bleed 10/03/2024 S/P AVR 10/03/2024 Acute hypoxic respiratory failure ([facility]) 10/03/2024 Acute encephalopathy 10/03/2024 Pneumoperitoneum 10/03/2024 Anemia [...] Daily Activity Raw Score: 17 ADL Inpatient [facility] G-Code Modifier: CK Plan Pt would [...] of Care supervision is transferred to a [facility] Therapy Services Occupational Therapist. Goals and/or treatment plan was established in collaboration with patient/family/other representatives. [1] Past Medical History: Diagnosis Date Acute renal failure (ARF) ([facility]) 10/19/2019 Anemia 12/30/2021 Calcification of abdominal aorta ([facility]) 10/08/202309/[address] abd Diverticulosis 10/08/2023 ESRD on hemodialysis ([facility]) ([facility]) 10/26/2019 Hemodialysis patient ([facility]) ([facility]) HTN (hypertension) 12/01/2022 Hypertension IgA nephropathy IgA nephropathy determined by biopsy of kidney 10/26/2019 Missed vaccination due to patient refusal 10/08/2023 Has a number of non-scientific based beliefs which interfere with his understanding and acceptance of the medical benefit of vaccination. Nonrheumatic aortic valve stenosis 10/08/2023 Paroxysmal A-fib ([facility]) ([facility]) 08/18/2023 Tobacco abuse 10/08/2023 [2] Past Surgical History: Procedure Laterality Date APPENDECTOMY CARDIAC CATHETERIZATION N/A 10/09/2024 Performed by Bob Watson MD at [facility] Cardiac Cath/EP Lab CARDIAC CATHETERIZATION Bilateral 11/01/2024 Performed by Bob Watson MD at [facility] Cardiac Cath/EP Lab CARDIAC CATHETERIZATION N/A 11/01/2024 Performed by Bob Watson MD at [facility] Cardiac Cath/EP Lab COLONOSCOPY N/A 01/24/2025 Performed by Chadd Davis MD at [facility] ENDOSCOPY FISTULAGRAM (HISTORICAL) Left 09/15/2021 LEFT UPPER ARM HX AV FISTULA CREATION IR EMBOLIZATION 10/14/2024 IR EMBOLIZATION 10/14/2024 [facility] SPECIAL PROCEDURES IR FISTULAGRAM 08/07/2022 IR FISTULAGRAM 08/07/2022 SB IR IMAGING TONSILLECTOMY (HISTORICAL) Hospitalist Progress Note Subjective: Admit Date: 03/13/2025 PCP: Leilani Troncoso Room#: [id number] A Chief Complaint Patient presents with Shortness of Breath Pt arrived from long term via EMS. Pt was starting dialysis and [...] Klebsiella pneumonia with lung abscess presented to [place] ED with worsening shortness of breath. He [...] in upper abdomen He was transferred from [facility] to [facility] due to bed availability Nephrology consulted, [...] MD Division of Hospital Medicine Inpatient Medical Services/[facility] [1] Past Medical History: Diagnosis Date Acute renal failure (ARF) ([facility]) 10/19/2019 Anemia 12/30/2021 Calcification of abdominal aorta ([facility]) 10/08/202309/[address] abd Diverticulosis 10/08/2023 ESRD on hemodialysis ([facility]) ([facility]) 10/26/2019 Hemodialysis patient ([facility]) ([facility]) HTN (hypertension) 12/01/2022 Hypertension IgA nephropathy IgA nephropathy determined by biopsy of kidney 10/26/2019 Missed vaccination due to patient refusal 10/08/2023 Has a number of non-scientific based beliefs which interfere with his understanding and acceptance of the medical benefit of vaccination. Nonrheumatic aortic valve stenosis 10/08/2023 Paroxysmal A-fib ([facility]) ([facility]) 08/18/2023 Tobacco abuse 10/08/2023 [2] Lidocaine, 1 [...] Diagnosis Date Acute renal failure (ARF) ([facility]) 10/19/2019 Anemia 12/30/2021 Calcification of abdominal aorta ([facility]) 10/08/202309/[address] abd Diverticulosis 10/08/2023 ESRD on hemodialysis ([facility]) ([facility]) 10/26/2019 Hemodialysis patient ([facility]) ([facility]) HTN (hypertension) 12/01/2022 Hypertension IgA nephropathy IgA nephropathy determined by biopsy of kidney 10/26/2019 Missed vaccination due to patient refusal 10/08/2023 Has a number of non-scientific based beliefs which interfere with his understanding and acceptance of the medical benefit of vaccination. Nonrheumatic aortic valve stenosis 10/08/2023 Paroxysmal A-fib ([facility]) ([facility]) 08/18/2023 Tobacco abuse 10/08/2023 Nephrology Progress Note [...] any questions or concerns Bree Molina APRN HAND I BLOCKER A-G TELECINE OPERATOR [facility] [phone] Pt seen and examined independently by me. I reviewed with MAKEUP SALES CONSULTANT-HAND I BLOCKER the medical history and the findings on physical examination. I discussed the patient s diagnosis and concur with the treatment plan as documented in his note. Please call [phone] or message me through [employer] with any questions or concerns. Images from the original note were not included. [facility] Wound VAC Progress Note Jun Snyder [...] pain with IV pain medication, per staff nurse icu resource team, prior to wound VAC dressing change. 1 [...] to follow Recommend to follow up at [facility] wound care center after hospital discharge. [...] Diagnosis Date Acute renal failure (ARF) ([facility]) 10/19/2019 Anemia 12/30/2021 Calcification of abdominal aorta ([facility]) 10/08/202309/[address] abd Diverticulosis 10/08/2023 ESRD on hemodialysis ([facility]) ([facility]) 10/26/2019 Hemodialysis patient ([facility]) ([facility]) HTN (hypertension) 12/01/2022 Hypertension IgA nephropathy IgA nephropathy determined by biopsy of kidney 10/26/2019 Missed vaccination due to patient refusal 10/08/2023 Has a number of non-scientific based beliefs which interfere with his understanding and acceptance of the medical benefit of vaccination. Nonrheumatic aortic valve stenosis 10/08/2023 Paroxysmal A-fib ([facility]) ([facility]) 08/18/2023 Tobacco abuse 10/08/2023 [2] Past Surgical History: Procedure Laterality Date APPENDECTOMY CARDIAC CATHETERIZATION N/A 10/09/2024 Performed by Bob Watson MD at [facility] Cardiac Cath/EP Lab CARDIAC CATHETERIZATION Bilateral 11/01/2024 Performed by oBb Watson MD at [facility] Cardiac Cath/EP Lab CARDIAC CATHETERIZATION N/A 11/01/2024 Performed by Bob Watson MD at [facility] Cardiac Cath/EP Lab COLONOSCOPY N/A 01/24/2025 Performed by Chadd Davis MD at [facility] ENDOSCOPY FISTULAGRAM (HISTORICAL) Left 09/15/2021 LEFT UPPER ARM HX AV FISTULA CREATION IR EMBOLIZATION 10/14/2024 IR EMBOLIZATION 10/14/2024 [facility] SPECIAL PROCEDURES IR FISTULAGRAM 08/07/2022 IR [...] Gill DO at 03/19/2025 4:44 PM EDT [facility] Anticoagulation Management Service ([facility]) Inpatient Warfarin Consult [...] of warfarin is 1.5 mg on , Th, Sat and 1 mg all other days . [...] dose accordingly 3. Will facilitate f/u at [facility] upon discharge Kvng Dugan, PharmCecil 2024 Candidate [facility] is available daily [phone] via [employer]. If no response on [employer] Chat then please page [phone]. [1] Past Medical History: Diagnosis Date Acute renal failure (ARF) ([facility]) 10/19/2019 Anemia 12/30/2021 Calcification of abdominal aorta ([facility]) 10/08/202309/[address] abd Diverticulosis 10/08/2023 ESRD on hemodialysis ([facility]) ([facility]) 10/26/2019 Hemodialysis patient ([facility]) ([facility]) HTN (hypertension) 12/01/2022 Hypertension IgA nephropathy IgA nephropathy determined by biopsy of kidney 10/26/2019 Missed vaccination due to patient refusal 10/08/2023 Has a number of non-scientific based beliefs which interfere with his understanding and acceptance of the medical benefit of vaccination. Nonrheumatic aortic valve stenosis 10/08/2023 Paroxysmal A-fib ([facility]) ([facility]) 08/18/2023 Tobacco abuse 10/08/2023 Cosigned by Tiffanie Dial [facility] at 03/16/2025 10:57 AM EDT Patient currently off unit, will attempt smoking cessation counseling at a later date. Hospitalist Progress Note Subjective: Admit Date: 03/13/2025 PCP: Leilani Troncoso Room#: [id number] A Chief Complaint Patient presents with Shortness of Breath Pt arrived from long term via EMS. Pt was starting dialysis and [...] Klebsiella pneumonia with lung abscess presented to [place] ED with worsening shortness of breath. He [...] in upper abdomen He was transferred from [place] ED to [facility] due to bed availability Nephrology consulted, [...] LABS: CBC: Recent Labs 03/13/25 0902 03/15/25 043 WBC 8.0 6.7 RBC 2.86* 3.02* HGB 11.8* 8.5* 9.2* HCT 28.4* 30.1* MCV 99.3* 99.7* RDW 21.2* 21.3* PLT 392 392 BMP: Recent Labs 03/13/25 0945 03/14/25 0507 03/15/25 043 NA 141 141 139 K 3.5 5.2* 4.5 CL 110* 102 100 CO2 25 28 28 BUN 41* 57* 30* CREATININE 3.32* 4.96* 3.13* GLUCOSE 71* 99 91 CALCIUM 7.3* 10.1 9.2 ANIONGAP 6 11 11 LIVER PROFILE: Recent Labs 03/13/25 0945 03/15/25 043 AST 37* 49* ALT 7 14 BILITOT 0.5 0.8 ALKPHOS 122 201* PROT 5.5* 7.6 PT/INR: Recent Labs 03/13/25 0902 03/15/25 043 PROTIME 17.7* 17.9* INR 1.7* 1.7* CARDIAC [...] MD Division of Hospital Medicine Inpatient Medical Services/[facility] [1] Past Medical History: Diagnosis Date Acute renal failure (ARF) ([facility]) 10/19/2019 Anemia 12/30/2021 Calcification of abdominal aorta ([facility]) 10/08/202309/[address] abd Diverticulosis 10/08/2023 ESRD on hemodialysis ([facility]) ([facility]) 10/26/2019 Hemodialysis patient ([facility]) ([facility]) HTN (hypertension) 12/01/2022 Hypertension IgA nephropathy IgA nephropathy determined by biopsy of kidney 10/26/2019 Missed vaccination due to patient refusal 10/08/2023 Has a number of non-scientific based beliefs which interfere with his understanding and acceptance of the medical benefit of vaccination. Nonrheumatic aortic valve stenosis 10/08/2023 Paroxysmal A-fib ([facility]) ([facility]) 08/18/2023 Tobacco abuse 10/08/2023 [2] Lidocaine, 1 [...] Diagnosis Date Acute renal failure (ARF) ([facility]) 10/19/2019 Anemia 12/30/2021 Calcification of abdominal aorta ([facility]) 10/08/202309/[address] abd Diverticulosis 10/08/2023 ESRD on hemodialysis ([facility]) ([facility]) 10/26/2019 Hemodialysis patient ([facility]) ([facility]) HTN (hypertension) 12/01/2022 Hypertension IgA nephropathy IgA nephropathy determined by biopsy of kidney 10/26/2019 Missed vaccination due to patient refusal 10/08/2023 Has a number of non-scientific based beliefs which interfere with his understanding and acceptance of the medical benefit of vaccination. Nonrheumatic aortic valve stenosis 10/08/2023 Paroxysmal A-fib ([facility]) ([facility]) 08/18/2023 Tobacco abuse 10/08/2023 Nephrology Progress Note [...] any questions or concerns Bree Molina APRN HAND I BLOCKER A-G TELECINE OPERATOR [facility] [phone] Pt seen and examined independently by me. I reviewed with MAKEUP SALES CONSULTANT-HAND I BLOCKER the medical history and the findings on physical examination. I discussed the patient s diagnosis and concur with the treatment plan as documented in his note. Please call [phone] or message me through [employer] with any questions or concerns. [facility] Anticoagulation Management Service ([facility]) Inpatient Warfarin Consult [...] dose accordingly 3. Will facilitate f/u at [facility] upon discharge Kvng Dugan PharmD 2024 Candidate [facility] is available daily [phone] via [employer] Chat. If no response on Epic Chat then please page [phone]. [1] Past Medical History: Diagnosis Date Acute renal failure (ARF) ([facility]) 10/19/2019 Anemia 12/30/2021 Calcification of abdominal aorta ([facility]) 10/08/202309/[address] abd Diverticulosis 10/08/2023 ESRD on hemodialysis ([facility]) ([facility]) 10/26/2019 Hemodialysis patient ([facility] ([facility]) HTN (hypertension) 12/01/2022 Hypertension IgA nephropathy IgA nephropathy determined by biopsy of kidney 10/26/2019 Missed vaccination due to patient refusal 10/08/2023 Has a number of non-scientific based beliefs which interfere with his understanding and acceptance of the medical benefit of vaccination. Nonrheumatic aortic valve stenosis 10/08/2023 Paroxysmal A-fib ([facility]) ([facility]) 08/18/2023 Tobacco abuse 10/08/2023 Cosigned by Tiffanie Dial RPh at 03/15/2025 1:17 PM EDT Images from the original note were not included. [facility] Wound VAC Progress Note Jun Snyder AGE: 59 y.o. GENDER: male : 1965 Subjective: HISTORY of PRESENT ILLNESS HPI uJn Snyder is a 59 y.o. male who [...] to follow Recommend to follow up at [facility] wound care center after hospital discharge. [...] Diagnosis Date Acute renal failure (ARF) ([facility]) 10/19/2019 Anemia 12/30/2021 Calcification of abdominal aorta ([facility]) 10/08/202309/[address] abd Diverticulosis 10/08/2023 ESRD on hemodialysis ([facility]) ([facility]) 10/26/2019 Hemodialysis patient ([facility] ([facility]) HTN (hypertension) 12/01/2022 Hypertension IgA nephropathy IgA nephropathy determined by biopsy of kidney 10/26/2019 Missed vaccination due to patient refusal 10/08/2023 Has a number of non-scientific based beliefs which interfere with his understanding and acceptance of the medical benefit of vaccination. Nonrheumatic aortic valve stenosis 10/08/2023 Paroxysmal A-fib ([facility]CC) (HCC) 08/18/2023 Tobacco abuse 10/08/2023 [2] Past Surgical History: Procedure Laterality Date APPENDECTOMY CARDIAC CATHETERIZATION N/A 10/09/2024 Performed by Bob Watson MD at [facility] Cardiac Cath/EP Lab CARDIAC CATHETERIZATION Bilateral 11/01/2024 Performed by Bob Watson MD at [facility] Cardiac Cath/EP Lab CARDIAC CATHETERIZATION N/A 11/01/2024 Performed by Bob Watson MD at [facility] Cardiac Cath/EP Lab COLONOSCOPY N/A 01/24/2025 Performed by Chadd Davis MD at [facility] ENDOSCOPY FISTULAGRAM (HISTORICAL) Left 09/15/2021 LEFT UPPER ARM HX AV FISTULA CREATION IR EMBOLIZATION 10/14/2024 IR EMBOLIZATION 10/14/2024 [facility] SPECIAL PROCEDURES IR FISTULAGRAM 08/07/2022 IR [...] original note were not included. PHYSICAL THERAPY [facility] Initial Evaluation Name/MRN: Jair Snyder ([id number]) Evaluation Date: 03/14/2025 Date of : 1965 Admission Date: 03/13/2025 8:18 AM Age: 59 y.o. Room/Bed: [id number]/[id number] A Discharge Recommendation: Retirement Facility Equipment Needed: No Assessment IMPRESSION: Pt [...] (shortness of breath) 03/13/2025 Severe malnutrition (CMS/HCC) ([facility]) 02/21/2025 Hemoptysis 02/20/2025 Complication of tracheostomy (CMS/HCC) ([facility]) 01/19/2025 director long term care (current) use of antibiotics 01/12/2025 Acute respiratory failure with hypoxia ([facility]) [J96.01] 01/08/2025 Tracheostomy care ([facility]) [Z43.0] 01/08/2025 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[facility]) 01/08/2025 Sacral osteomyelitis (CMS/HCC) ([facility]) 01/03/2025 Pneumonia of both lungs due to methicillin susceptible Staphylococcus aureus (MSSA) ([facility]) 01/01/2025 Leukocytosis 12/30/2024 Decubitus ulcer of sacral region, unstageable ([facility]) 12/30/2024 Peritonitis due to fungus ([facility]) 11/30/2024 History of abdominal surgery 11/30/2024 Leg DVT (deep venous thromboembolism), acute, left ([facility]) 11/30/2024 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, 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 of skin ([facility]) 11/30/2024 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 Pleural effusion 11/28/2024 Gastric ulceration 2024 Atrial flutter, unspecified type ([facility]) 10/03/2024 RSV (acute bronchiolitis due to respiratory syncytial virus) 10/03/2024 Diverticulosis 10/08/2023 Nonrheumatic aortic valve stenosis 10/08/2023 Calcification of abdominal aorta ([facility]) 10/08/2023 Missed vaccination due to patient refusal 10/08/2023 Tobacco abuse 10/08/2023 Alcohol use disorder in remission 10/08/2023 Paroxysmal A-fib ([facility]) ([facility]) 08/18/2023 HTN (hypertension) 12/01/2022 ESRD on hemodialysis ([facility]) ([facility]) 10/26/2019 IgA nephropathy determined by biopsy of kidney 10/26/2019 BRBPR (bright red blood per rectum) 01/19/2025 Aortic stenosis 10/03/2024 Upper GI bleed 10/03/2024 S/P AVR 10/03/2024 Acute hypoxic respiratory failure ([facility]) 10/03/2024 Acute encephalopathy 10/03/2024 Pneumoperitoneum 10/03/2024 Anemia [...] awareness. Social/Functional History Pt has been at [facility] for rehab for the past [...] Stairs) : 15 JH-HLM JH-HLM Score: Walked 10 steps or more (i.e. [...] of Care supervision is transferred to a [facility] Therapy Services Physical Therapist. Goals and/or treatment plan was established in collaboration with patient/family/other representatives. [1] Past Medical History: Diagnosis Date Acute renal failure (ARF) ([facility]) 10/19/2019 Anemia 12/30/2021 Calcification of abdominal aorta ([facility]) 10/08/202309/[address] abd Diverticulosis 10/08/2023 ESRD on hemodialysis ([facility]) ([facility]) 10/26/2019 Hemodialysis patient ([facility]) ([facility]) HTN (hypertension) 12/01/2022 Hypertension IgA nephropathy IgA nephropathy determined by biopsy of kidney 10/26/2019 Missed vaccination due to patient refusal 10/08/2023 Has a number of non-scientific based beliefs which interfere with his understanding and acceptance of the medical benefit of vaccination. Nonrheumatic aortic valve stenosis 10/08/2023 Paroxysmal A-fib ([facility]) ([facility]) 08/18/2023 Tobacco abuse 10/08/2023 [2] Past Surgical History: Procedure Laterality Date APPENDECTOMY CARDIAC CATHETERIZATION N/A 10/09/2024 Performed by Bob Watson MD at [facility] Cardiac Cath/EP Lab CARDIAC CATHETERIZATION Bilateral 11/01/2024 Performed by Bob Watson MD at [facility] Cardiac Cath/EP Lab CARDIAC CATHETERIZATION N/A 11/01/2024 Performed by Bob Watson MD at [facility] Cardiac Cath/EP Lab COLONOSCOPY N/A 01/24/2025 Performed by Chadd Davis MD at [facility] ENDOSCOPY FISTULAGRAM (HISTORICAL) Left 09/15/2021 LEFT UPPER ARM HX AV FISTULA CREATION IR EMBOLIZATION 10/14/2024 IR EMBOLIZATION 10/14/2024 [facility] SPECIAL PROCEDURES IR FISTULAGRAM 08/07/2022 IR FISTULAGRAM 08/07/2022 [facility] IR IMAGING TONSILLECTOMY (HISTORICAL) Hospitalist Progress Note Subjective: Admit Date: 03/13/2025 PCP: Leilani Troncoso Room#: [id number]/[id number] A Chief Complaint Patient presents with Shortness of Breath Pt arrived from long term via EMS. Pt was starting dialysis and [...] Klebsiella pneumonia with lung abscess presented to [place] ED with worsening shortness of breath. He [...] in upper abdomen He was transferred from [facility] to [facility] due to bed availability Nephrology consulted, [...] MD Division of Hospital Medicine Inpatient Medical Services/[facility] [1] Past Medical History: Diagnosis Date Acute renal failure (ARF) ([facility]) 10/19/2019 Anemia 12/30/2021 Calcification of abdominal aorta ([facility]) 10/08/202309/[address] abd Diverticulosis 10/08/2023 ESRD on hemodialysis ([facility]) ([facility]) 10/26/2019 Hemodialysis patient ([facility]) ([facility]) HTN (hypertension) 12/01/2022 Hypertension IgA nephropathy IgA nephropathy determined by biopsy of kidney 10/26/2019 Missed vaccination due to patient refusal 10/08/2023 Has a number of non-scientific based beliefs which interfere with his understanding and acceptance of the medical benefit of vaccination. Nonrheumatic aortic valve stenosis 10/08/2023 Paroxysmal A-fib ([facility]) ([facility]) 08/18/2023 Tobacco abuse 10/08/2023 [2] Lidocaine, 1 [...] Diagnosis Date Acute renal failure (ARF) ([facility]) 10/19/2019 Anemia 12/30/2021 Calcification of abdominal aorta ([facility]) 10/08/202309/[address] abd Diverticulosis 10/08/2023 ESRD on hemodialysis ([facility]) ([facility]) 10/26/2019 Hemodialysis patient ([facility]) ([facility]) HTN (hypertension) 12/01/2022 Hypertension IgA nephropathy IgA nephropathy determined by biopsy of kidney 10/26/2019 Missed vaccination due to patient refusal 10/08/2023 Has a number of non-scientific based beliefs which interfere with his understanding and acceptance of the medical benefit of vaccination. Nonrheumatic aortic valve stenosis 10/08/2023 Paroxysmal A-fib ([facility]) ([facility]) 08/18/2023 Tobacco abuse 10/08/2023 [facility] Anticoagulation Management Service ([facility]IL[facility]) Inpatient Warfarin Consult [...] dose accordingly 3. Will facilitate f/u at [facility] upon discharge Tiffanie Dial RP, PharmD SAILAJA is available daily [phone] via Hitch Radio Chat. If no response on Epic Chat then please page [phone]. [1] Past Medical History: Diagnosis Date Acute renal failure (ARF) ([facility]) 10/19/2019 Anemia 12/30/2021 Calcification of abdominal aorta ([facility]) 10/08/202309/[address] abd Diverticulosis 10/08/2023 ESRD on hemodialysis ([facility]) ([facility]) 10/26/2019 Hemodialysis patient ([facility]) ([facility]) HTN (hypertension) 12/01/2022 Hypertension IgA nephropathy IgA nephropathy determined by biopsy of kidney 10/26/2019 Missed vaccination due to patient refusal 10/08/2023 Has a number of non-scientific based beliefs which interfere with his understanding and acceptance of the medical benefit of vaccination. Nonrheumatic aortic valve stenosis 10/08/2023 Paroxysmal A-fib ([facility]) ([facility]) 08/18/2023 Tobacco abuse 10/08/2023 documented in this encounter [facility] 03-21-2025 Note Formatting of this n ote might be different from the original. Care Management Progress Note Short Medical why still here: Heparin gtt stopped today. . INR 2.9 today. Getting Coumadin. Refusing to work with therapy. They would like to skill him if able. Planned Discharge Disposition: Snf/Residential Care Barriers/Today we still Wait: Administering IV medications, Test results (comment) Length of Stay (Days): 8 GMLOS: 3.9 [facility] 03-21-2025 Note Formatting of this n ote might be different from the original. Care Management Progress Note Short Medical why still here: Heparin gtt stopped today. . INR 2.9 today. Getting Coumadin. Refusing to work with therapy. They would like to skill him if able. Planned Discharge Disposition: Snf/Residential Care Barriers/Today we still Wait: Administering IV medications, Test results (comment) Length of Stay (Days): 8 GMLOS: 3.9 [facility] 03-21-2025 Plan of care note Problem: [...] and maintained or improved Outcome: Progressing T [facility] 03-20-2025 Nurse Note Patient Name: Jun Snyder Patient : 1965 Acct: [id number] Date of Admission: 03/13/2025 [facility]: [facility] [...] - Before each treatment: Dialysis Machine No.: [id number] RO Machine Number: [id number] Dialyzer Lot No.: [id number] Tubing Lot Number: [id number] All Connections Secure: Yes Venous Parameters Set: Yes Arterial Parameters Set: Yes NS Bag: Yes Saline Line Double Clamped: Yes Dialyzer: Nipro Prime Volume (mL): 200 mL RO Machine Number: [id number] RO Machine Log Sheet Completed: Yes Machine Alarm Self Test: Completed, Passed (03/20/25 1145) Air Foam Detector: Tested, Proper Function, pH Reading Extracorporeal Circuit Tested for Integrity: Yes Machine Conductivity: 13.8 Manual Conductivity: 13.8 Manual Ph: 7 Bleach Test (Neg): Yes Bath Temperature: 36 C (96.8 F) Conductivity Meter Serial #: [id number] Machine Functioning Alarm Free? Yes Dialysis Bath: K+ (Potassium): 2 Ca+ (Calcium): 2.5 Na+ (Sodium): 135 HCO3 (Bicarb): 35 Chlorine Testing - Before each treatment and every 4 hours: Time On: 1216 Time Off: 1516 Treatment Goal: 2L Weight Height: 177.8 cm (5' 10") (03/14/25 1617) Weight: 69.8 kg (153 lb 12.8 oz) (03/20/25 042) BMI (Calculated): 22.07 (03/20/25 0422) 1st check: less than 0.1 ppm at: [...] Other (Comment) (to inform patient arrival from [facility] and need for orders) Provider [...] Active Problem List Diagnosis Anemia Paroxysmal A-fib ([facility]) ([facility]) HTN (hypertension) ESRD on hemodialysis ([facility]) ([facility]) IgA nephropathy determined by biopsy of kidney Diverticulosis Nonrheumatic aortic valve stenosis Calcification of abdominal aorta ([facility]) Missed vaccination due to patient refusal Tobacco abuse Alcohol use disorder in remission Atrial flutter, unspecified type ([facility]) RSV (acute bronchiolitis due to respiratory syncytial virus) Aortic stenosis Upper GI bleed S/P AVR Acute hypoxic respiratory failure ([facility]) Acute encephalopathy Pneumoperitoneum Gastric ulceration Severe malnutrition ([facility]) ([facility]) Pleural effusion Peritonitis due to fungus ([facility]) History of abdominal surgery Leg DVT (deep venous thromboembolism), acute, left ([facility]) 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, 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 of skin ([facility]) Tracheostomy dependence ([facility]) Leukocytosis Decubitus ulcer of sacral region, unstageable ([facility]) Pneumonia of both lungs due to methicillin susceptible Staphylococcus aureus (MSSA) ([facility]) Sacral osteomyelitis ([facility]) ([facility]) Acute respiratory failure with hypoxia ([facility]) [J96.01] Tracheostomy care ([facility]) [Z43.0] 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[facility]) director long term care (current) use of antibiotics Complication of tracheostomy ([facility]) ([facility]) BRBPR (bright red blood per rectum) Hemoptysis SOB (shortness of breath) Moderate malnutrition ([facility]) ([facility]) [3] heparin, 5-30 Units/kg/hr, Last Rate: 20 Units/kg/hr (03/20/25 1328) [facility] 03-20-2025 Note Formatting of this n ote might be different from the original. Care Management Progress Note Short Medical why still here: Heparin gtt bridging to Coumadin. INR 1.9 today Planned Discharge Disposition: Snf/Residential Care Barriers/Today we still Wait: Clinical stability Length of Stay (Days): 7 GMLOS: 3.9 T [facility] 03-20-2025 Note Formatting of this n ote might be different from the original. Care Management Progress Note Short Medical why still here: Heparin gtt bridging to Coumadin. INR 1.9 today Planned Discharge Disposition: Snf/Residential Care Barriers/Today we still Wait: Clinical stability Length of Stay (Days): 7 GMLOS: 3.9 T [facility] 03-20-2025 Plan of care note Problem: [...] monitored and maintained or improved Outcome: Progressing [facility] 03-19-2025 Note Formatting of this n ote might be different from the original. Care Management Progress Note Continues on a Heparin gtt. Trying to bridge to Coumadin. INR 1.6 today. When stable plan is to return to [facility].. . Length of Stay (Days): 6 GMLOS: 3.9 [facility] 03-19-2025 Note Formatting of this n ote might be different from the original. Care Management Progress Note Continues on a Heparin gtt. Trying to bridge to Coumadin. INR 1.6 today. When stable plan is to return to [facility].. . Length of Stay (Days): 6 GMLOS: 3.9 [facility] 03-19-2025 Plan of care note Problem: Knowledge [...] monitored and maintained or improved Outcome: Progressing [facility] 03-19-2025 Plan of care note Problem: Knowledge [...] and maintained or improved Outcome: Progressing T [facility] 03-19-2025 Nurse Note Wound vac suction failing-pt requesting wound vac removed for now. Black foam dressing removed and wound packed with saline-soaked gauze covered with DSD T [facility] 03-19-2025 Nurse Note Pt adamantly refusing telemetry at this time, ripped off monitor and threw to the floor [facility] 03-18-2025 Note Problem: Pain - Adul t Goal: Verbalizes/displays adequate comfort level or baseline comfort level Outcome: Progressing Problem: Safety - Adult Goal: Free from fall injury Outcome: Progressing [facility] 03-18-2025 Plan of care note Problem: Pain - Adult Goal: Verbalizes/displays adequate comfort level or baseline comfort level Outcome: Progressing Problem: Safety - Adult Goal: Free from fall injury Outcome: Progressing T [facility] 03-17-2025 Plan of care note Problem: [...] monitored and maintained or improved Outcome: Progressing [facility] 03-17-2025 Note Problem: Pain - Adul t Goal: Verbalizes/displays adequate comfort level or baseline comfort level Outcome: Progressing Problem: Safety - Adult Goal: Free from fall injury Outcome: Progressing [facility] 03-17-2025 Plan of care note Problem: Pain - Adult Goal: Verbalizes/displays adequate comfort level or baseline comfort level Outcome: Progressing Problem: Safety - Adult Goal: Free from fall injury Outcome: Progressing T [facility] 03-17-2025 Nurse Note Patient Name: Jun Snyder Patient : 1965 Acct: [id number] Date of Admission: 03/13/2025 [facility]: [facility] [...] 03/17/202546 BUN 22 03/17/202546 CREATININE 3.25 (H) 03/17/2025 0047 CREATININE 9.99 (H) 10/27/2019 0545 CALCIUM 9.6 03/17/2025 0047 PHOS 2.6 02/23/2025 0032 IV Drips and Rate/Dose Continuous Meds[3] Safety - Before each treatment: Dialysis Machine No.: [id number] RO Machine Number: [id number] Dialyzer Lot No.: [id number] Tubing Lot Number: [id number] All Connections Secure: Yes Venous Parameters Set: Yes Arterial Parameters Set: Yes NS Bag: Yes Saline Line Double Clamped: Yes Dialyzer: Nipro Prime Volume (mL): 200 mL RO Machine Number: [id number] RO Machine Log Sheet Completed: Yes Machine Alarm Self Test: Completed, Passed (03/17/25 0803) Air Foam Detector: Tested, Proper Function, pH Reading Extracorporeal Circuit Tested for Integrity: Yes Machine Conductivity: 13.6 Manual Conductivity: 13.6 Manual Ph: 7 Bleach Test (Neg): Yes Bath Temperature: 36 C (96.8 F) Conductivity Meter Serial #: [id number] Machine Functioning Alarm Free? Yes Dialysis Bath: K+ (Potassium): 2 Ca+ (Calcium): 2.5 Na+ (Sodium): 135 HCO3 (Bicarb): 35 Chlorine Testing - Before each treatment and every 4 hours: Time On: 0841 Time Off: 1141 Treatment Goal: 2L Weight Height: 177.8 cm (5' 10") (03/14/25 1617) Weight: 64.4 kg (142 lb) (03/17/25 0537) BMI (Calculated): 20.37 (03/17/25 0537) 1st check: less than 0.1 ppm at: [...] Other (Comment) (to inform patient arrival from [facility] and need for orders) Provider [...] Active Problem List Diagnosis Anemia Paroxysmal A-fib ([facility]) ([facility]) HTN (hypertension) ESRD on hemodialysis ([facility]) ([facility]) IgA nephropathy determined by biopsy of kidney Diverticulosis Nonrheumatic aortic valve stenosis Calcification of abdominal aorta ([facility]) Missed vaccination due to patient refusal Tobacco abuse Alcohol use disorder in remission Atrial flutter, unspecified type ([facility]) RSV (acute bronchiolitis due to respiratory syncytial virus) Aortic stenosis Upper GI bleed S/P AVR Acute hypoxic respiratory failure ([facility]) Acute encephalopathy Pneumoperitoneum Gastric ulceration Severe malnutrition ([facility]) ([facility]) Pleural effusion Peritonitis due to fungus ([facility]) History of abdominal surgery Leg DVT (deep venous thromboembolism), acute, left ([facility]) 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, 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 of skin ([facility]) Tracheostomy dependence ([facility]) Leukocytosis Decubitus ulcer of sacral region, unstageable ([facility]) Pneumonia of both lungs due to methicillin susceptible Staphylococcus aureus (MSSA) ([facility]) Sacral osteomyelitis ([facility]) ([facility]) Acute respiratory failure with hypoxia ([facility]) [J96.01] Tracheostomy care ([facility]) [Z43.0] 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[facility]) director long term care (current) use of antibiotics Complication of tracheostomy ([facility]) ([facility]) BRBPR (bright red blood per rectum) Hemoptysis SOB (shortness of breath) Moderate malnutrition (CMS/HCC) ([facility]) [3] heparin, 5-30 Units/kg/hr T [facility] 03-16-2025 Plan of care note Problem: Knowledge Deficit Goal: Patient/family/caregiver demonstrates understanding of disease process, treatment plan, medications, and discharge instructions Outcome: Progressing Problem: Potential for Compromised Skin Integrity Goal: Nutritional status is improving Outcome: Progressing T [facility] 03-16-2025 Plan of care note Problem: [...] Goal: Assess Nutritional Intake Outcome: Progressing T [facility] 03-16-2025 Note Formatting of this n ote might be different from the original. Care Management Progress Note Going to dialysis today. Refusing surgery for gangrenous toes. Anticipate discharge back to [facility] soon. . Length of Stay (Days): 3 GMLOS: 3.9 [facility] 03-16-2025 Note Formatting of this n ote might be different from the original. Care Management Progress Note Going to dialysis today. Refusing surgery for gangrenous toes. Anticipate discharge back to [facility] soon. . Length of Stay (Days): 3 GMLOS: 3.9 T [facility] 03-16-2025 Note Care Management Prog ress Note Going to dialysis today. Refusing surgery for gangrenous toes. Anticipate discharge back to [facility] soon. . Length of Stay (Days): 3 GMLOS: 3.9 [facility] 03-15-2025 Note Formatting of this n ote might be different from the original. ELIA reviewed chart. Copy of DPOA found in electronic chart naming Omar connell as agent. Care Management Return to Hospital Readmission questionnaire- N/A- pt form [facility]CF. [facility] 03-15-2025 Note Formatting of this n ote might be different from the original. ELIA reviewed chart. Copy of DPOA found in electronic chart naming Omar connell as agent. Care Management Return to Hospital Readmission questionnaire- N/A- pt form [facility]CF. [facility] 03-15-2025 Note ELIA reviewed chart. Copy of DPOA found in electronic chart naming Omar connell as agent. Care Management Return to Hospital Readmission questionnaire- N/A- pt form [facility]CF. [facility] 03-15-2025 Consult note Associated Order (s): Inpatient consult to Vascular Surgery--[facility]; Gangrenous toes noted on first 4 toes on left lower extremity, please evaluate Images from the original note were not included. Inpatient consult to Vascular Surgery--[facility]; Gangrenous toes noted on [...] 0 min Stress: Stress Concern Present (02/21/2025) [employer] - Occupational Stress Questionnaire Feeling of Stress : To some extent Social Connections: Unknown (02/21/2025) Social Connection and Isolation Panel [NHANES] Frequency of Communication with Friends and Family: More than three times a week Frequency of Social Gatherings with Friends and Family: Patient declined Attends Sikhism Services: Patient declined Active Member of Clubs [...] Department of Surgery General Surgery Resident Pager: [phone] PAGING / Hitch [employer] Secure Chat: From 6a-6p (-s): [employer] Secure Chat (FIRST) or Pager above (EMERGENT/Second) From p-6a (-): Find resident physician under [facility] Surgery - [...] This note may have been dictated using [employer] Practice Edition and/or Navent Voice Recognition Feature. The document was proofread; however, unrecognized voice recognition regional climate change analyst errors may be present. [1] Past Medical History: Diagnosis Date Acute renal failure (ARF) ([facility]) 10/19/2019 Anemia 12/30/2021 Calcification of abdominal aorta (HCC) 10/08/202309/[address] abd Diverticulosis 10/08/2023 ESRD on hemodialysis ([facility]) ([facility]) 10/26/2019 Hemodialysis patient ([facility]) ([facility]) HTN (hypertension) 12/01/2022 Hypertension IgA nephropathy IgA nephropathy determined by biopsy of kidney 10/26/2019 Missed vaccination due to patient refusal 10/08/2023 Has a number of non-scientific based beliefs which interfere with his understanding and acceptance of the medical benefit of vaccination. Nonrheumatic aortic valve stenosis 10/08/2023 Paroxysmal A-fib (CMS/HCC) ([facility]) 08/18/2023 Tobacco abuse 10/08/2023 [2] Past Surgical History: Procedure Laterality Date APPENDECTOMY CARDIAC CATHETERIZATION N/A 10/09/2024 Performed by Bob Watson MD at [facility] Cardiac Cath/EP Lab CARDIAC CATHETERIZATION Bilateral 11/01/2024 Performed by Bob Watson MD at [facility] Cardiac Cath/EP Lab CARDIAC CATHETERIZATION N/A 11/01/2024 Performed by Bob Watson MD at [facility] Cardiac Cath/EP Lab COLONOSCOPY N/A 01/24/2025 Performed by Chadd Davis MD at [facility] ENDOSCOPY FISTULAGRAM (HISTORICAL) Left 09/15/2021 LEFT UPPER ARM HX AV FISTULA CREATION IR EMBOLIZATION 10/14/2024 IR EMBOLIZATION 10/14/2024 [facility] SPECIAL PROCEDURES IR FISTULAGRAM 08/07/2022 IR [...] planning if and when patient is willing. [employer] Phone: 03-15-2025 Consult note Associated Order (s): Inpatient consult to Vascular Surgery--[facility]; Gangrenous toes noted on first 4 toes on left lower extremity, please evaluate Images from the original note were not included. Inpatient consult to Vascular Surgery--[facility]; Gangrenous toes noted on [...] 0 min Stress: Stress Concern Present (02/21/2025) [employer] - Occupational Stress Questionnaire Feeling of Stress : To some extent Social Connections: Unknown (02/21/2025) Social Connection and Isolation Panel [NHANES] Frequency of Communication with Friends and Family: More than three times a week Frequency of Social Gatherings with Friends and Family: Patient declined Attends Sikhism Services: Patient declined Active Member of Clubs [...] Department of Surgery General Surgery Resident Pager: [phone] PAGING / Hitch [employer] Secure Chat: From 6a-6p (- weekends): [employer] Secure Chat (FIRST) or Pager above (EMERGENT/Second) From 6p-6a (-s): Find resident physician under [facility] Surgery - General - Surgical ICU Patients: Select 'ACH GEN SURG Night Float ICU RES' or "Page [phone]" - Surgical Floor Patients: Select '[facility] GEN SURG Night Float Floor RES' or "Page [phone]" Disclaimers: INFORMED CONSENT: The nature and purpose [...] This note may have been dictated using [employer] Edition and/or Navent Voice Recognition Feature. The document was proofread; however, unrecognized voice recognition regional climate change analyst errors may be present. [1] Past Medical History: Diagnosis Date Acute renal failure (ARF) ([facility]) 10/19/2019 Anemia 12/30/2021 Calcification of abdominal aorta ([facility]) 10/08/202309/[address] abd Diverticulosis 10/08/2023 ESRD on hemodialysis ([facility]) ([facility]) 10/26/2019 Hemodialysis patient ([facility]) ([facility]) HTN (hypertension) 12/01/2022 Hypertension IgA nephropathy IgA nephropathy determined by biopsy of kidney 10/26/2019 Missed vaccination due to patient refusal 10/08/2023 Has a number of non-scientific based beliefs which interfere with his understanding and acceptance of the medical benefit of vaccination. Nonrheumatic aortic valve stenosis 10/08/2023 Paroxysmal A-fib ([facility]) ([facility]) 08/18/2023 Tobacco abuse 10/08/2023 [2] Past Surgical History: Procedure Laterality Date APPENDECTOMY CARDIAC CATHETERIZATION N/A 10/09/2024 Performed by Bob Watson MD at [facility] Cardiac Cath/EP Lab CARDIAC CATHETERIZATION Bilateral 11/01/2024 Performed by Bob Watson MD at [facility] Cardiac Cath/EP Lab CARDIAC CATHETERIZATION N/A 11/01/2024 Performed by Bob Watson MD at [facility] Cardiac Cath/EP Lab COLONOSCOPY N/A 01/24/2025 Performed by Chadd Davis MD at [facility] ENDOSCOPY FISTULAGRAM (HISTORICAL) Left 09/15/2021 LEFT UPPER ARM HX AV FISTULA CREATION IR EMBOLIZATION 10/14/2024 IR EMBOLIZATION 10/14/2024 [facility] SPECIAL PROCEDURES IR FISTULAGRAM 08/07/2022 IR FISTULAGRAM 08/07/2022 SB IR IMAGING TONSILLECTOMY (HISTORICAL) [3] [4] PRN [...] MS, RD, LD Clinical Dietitian Contact: or Hitch Radio Chat (dial *[phone] from hospital phone) Associated Order(s): IP CONSULT [...] ascites and omental edema in upper abdomen.) Mapping Technician Strength: Not Performed Chief Complaint Patient presents with Shortness of Breath Pt arrived from long term via EMS. Pt was starting dialysis and [...] On: Kcal/kg Weight Used for Energy Requirements: [place] Weight for Energy Calculation (kg): 75 kg Total Energy Requirements (kcals/day): 4230-5044 (25-30 kcals/kg) Weight Used for Protein Requirements: [place] Weight in Kg Used for Protein Requirements: [...] TSH 6.88 (H) 03/13/2025 FREET4 0.89 03/15/2025 [id number] 959 (H) 10/22/2019 FOLATE 9.2 10/22/2019 FERRITIN [...] for updated dry wt - per nephro) [place] Body Weight (lbs) (Calculated): 166 lbs [place] Body Weight (Kg) (Calculated): 75 kg % [place] Body Weight (Calculated): 88.6 % BMI (kg/m2) [...] Yasemin Ceron MS, RD, LD Contact: or [employer] (dial *[phone] from hospital phone) [1] Past Medical History: Diagnosis Date Acute renal failure (ARF) ([facility]) 10/19/2019 Anemia 12/30/2021 Calcification of abdominal aorta ([facility]) 10/08/202309/[address] abd Diverticulosis 10/08/2023 ESRD on hemodialysis ([facility] ([facility]) 10/26/2019 Hemodialysis patient ([facility]) ([facility]) HTN (hypertension) 12/01/2022 Hypertension IgA nephropathy IgA nephropathy determined by biopsy of kidney 10/26/2019 Missed vaccination due to patient refusal 10/08/2023 Has a number of non-scientific based beliefs which interfere with his understanding and acceptance of the medical benefit of vaccination. Nonrheumatic aortic valve stenosis 10/08/2023 Paroxysmal A-fib ([facility]) ([facility]) 08/18/2023 Tobacco abuse 10/08/2023 [2] Past Surgical History: Procedure Laterality Date APPENDECTOMY CARDIAC CATHETERIZATION N/A 10/09/2024 Performed by Bob Watson MD at [facility] Cardiac Cath/EP Lab CARDIAC CATHETERIZATION Bilateral 11/01/2024 Performed by Bob Watson MD at [facility] Cardiac Cath/EP Lab CARDIAC CATHETERIZATION N/A 11/01/2024 Performed by Bob Watson MD at [facility] Cardiac Cath/EP Lab COLONOSCOPY N/A 01/24/2025 Performed by Chadd Davis MD at [facility] ENDOSCOPY FISTULAGRAM (HISTORICAL) Left 09/15/2021 LEFT UPPER ARM HX AV FISTULA CREATION IR EMBOLIZATION 10/14/2024 IR EMBOLIZATION 10/14/2024 [facility] SPECIAL PROCEDURES IR FISTULAGRAM 08/07/2022 IR FISTULAGRAM 08/07/2022 [facility] IR IMAGING TONSILLECTOMY (HISTORICAL) [3] Lidocaine, 1 patch, Topical, Daily metoprolol tartrate, 25 mg, Oral, q6h pantoprazole, 40 mg, Oral, BID AC sevelamer carbonate, 800 mg, Oral, TID WC sodium zirconium cyclosilicate, 5 g, Oral, Daily warfarin, 2.5 mg, Oral, Once [4] [facility] Consult Note Consults HPI Jun is [...] 0 min Stress: Stress Concern Present (02/21/2025) [facility] - Occupational Stress Questionnaire Feeling of Stress : To some extent Social Connections: Unknown (02/21/2025) Social Connection and Isolation Panel [NHANES] Frequency of Communication with Friends and Family: More than three times a week Frequency of Social Gatherings with Friends and Family: Patient declined Attends Sikhism Services: Patient declined Active Member of Clubs [...] and sacral wound. Please message me through [email or web address] chat with any questions or concerns. Wellington Nicole MD 03/14/2025 10:43 AM [facility] [address], [address] [place] [address] Office: [phone] [1] Past Medical History: Diagnosis Date Acute renal failure (ARF) (HCC) 10/19/2019 Anemia 12/30/2021 Calcification of abdominal aorta (HCC) 10/08/202309/[address] abd Diverticulosis 10/08/2023 ESRD on hemodialysis (CMS/HCC) (HCC) 10/26/2019 Hemodialysis patient (CMS/HCC) (HCC) HTN (hypertension) 12/01/2022 Hypertension IgA nephropathy IgA nephropathy determined by biopsy of kidney 10/26/2019 Missed vaccination due to patient refusal 10/08/2023 Has a number of non-scientific based beliefs which interfere with his understanding and acceptance of the medical benefit of vaccination. Nonrheumatic aortic valve stenosis 10/08/2023 Paroxysmal A-fib ([facility] ([facility]) 08/18/2023 Tobacco abuse 10/08/2023 [2] Family History [...] 3350 Associated Order(s): IP CONSULT TO CARDIOLOGY [facility] Cardiology /Electrophysiology Consult Note Reason for Consult/Chief Complaint: Volume overload, afib rvr Referring provider: Dr Kidd Established welding machine operator resistance: Dr Shah History of Present Illness: Jun [...] to select rehab. He recently was at [facility] for Klebsiella pneumonia, hemoptysis and lung abscess [...] Coumadin - goal INR 2-3 Managed by pharmacy/[facility] clinic Medications: Scheduled Meds[1] Infusion Medications: Continuous [...] of Cardiovascular Disease, Division of Heart Failure [facility] 3:25 PM 03/14/25 Associated Order(s): INPATIENT CONSULT TO WOUND CARE PROVIDERS Images from the original note were not included. [facility] Wound VAC CONSULT Note Jun Snyder [...] apply Betadine and allow to dry, leave INFANTRY ASSAULTMAN daily and PRN Nutritional support Wound Care to follow Recommend to follow up at [facility] wound care center after hospital discharge. [...] Diagnosis Date Acute renal failure (ARF) ([facility]) 10/19/2019 Anemia 12/30/2021 Calcification of abdominal aorta ([facility]) 10/08/202309/[address] abd Diverticulosis 10/08/2023 ESRD on hemodialysis ([facility] ([facility]) 10/26/2019 Hemodialysis patient ([facility]) ([facility]) HTN (hypertension) 12/01/2022 Hypertension IgA nephropathy IgA nephropathy determined by biopsy of kidney 10/26/2019 Missed vaccination due to patient refusal 10/08/2023 Has a number of non-scientific based beliefs which interfere with his understanding and acceptance of the medical benefit of vaccination. Nonrheumatic aortic valve stenosis 10/08/2023 Paroxysmal A-fib ([facility] ([facility]) 08/18/2023 Tobacco abuse 10/08/2023 [2] Past Surgical History: Procedure Laterality Date APPENDECTOMY CARDIAC CATHETERIZATION N/A 10/09/2024 Performed by Bob Watson MD at [facility] Cardiac Cath/EP Lab CARDIAC CATHETERIZATION Bilateral 11/01/2024 Performed by Bob Watson MD at [facility] Cardiac Cath/EP Lab CARDIAC CATHETERIZATION N/A 11/01/2024 Performed by Bob Watson MD at [facility] Cardiac Cath/EP Lab COLONOSCOPY N/A 01/24/2025 Performed by Chadd Davis MD at [facility] ENDOSCOPY FISTULAGRAM (HISTORICAL) Left 09/15/2021 LEFT UPPER ARM HX AV FISTULA CREATION IR EMBOLIZATION 10/14/2024 IR EMBOLIZATION 10/14/2024 [facility] SPECIAL PROCEDURES IR FISTULAGRAM 08/07/2022 IR [...] 4:44 PM EDT documented in this encounter [facility] 03-15-2025 Note Patient currently of f unit, will attempt smoking cessation counseling at a later date. [facility] 03-15-2025 Nurse Note Patient Name: Jun Snyder Patient : 1965 Acct: [id number] Date of Admission: 03/13/2025 [facility] Code Status: Full Code Allergies: [...] - Before each treatment: Dialysis Machine No.: [id number] RO Machine Number: [id number] Dialyzer Lot No.: [id number] Tubing Lot Number: [id number] All Connections Secure: Yes Venous Parameters Set: Yes Arterial Parameters Set: Yes NS Bag: Yes Saline Line Double Clamped: Yes Dialyzer: Nipro Prime Volume (mL): 200 mL RO Machine Number: [id number] RO Machine Log Sheet Completed: Yes Machine Alarm Self Test: Completed, Passed (03/15/25 1215) Air Foam Detector: Tested, Proper Function, pH Reading Extracorporeal Circuit Tested for Integrity: Yes Machine Conductivity: 13.8 Manual Conductivity: 13.7 Manual Ph: 7 Bleach Test (Neg): Yes Bath Temperature: 36 C (96.8 F) Conductivity Meter Serial #: [id number] Machine Functioning Alarm Free? Yes Dialysis Bath: [...] Other (Comment) (to inform patient arrival [facility] and need for orders) Provider [...] S/P AVR Acute hypoxic respiratory failure ([facility]) Acute encephalopathy Pneumoperitoneum Gastric ulceration Severe malnutrition [...] (HCC) Acute respiratory failure with hypoxia ([facility]) [J96.01] Tracheostomy care ([facility]) [Z43.0] 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HCC) director long term care (current) use of antibiotics Complication of tracheostomy (CMS/HCC) (HCC) BRBPR (bright red blood per rectum) Hemoptysis SOB (shortness of breath) Moderate malnutrition (CMS/HCC) ([facility]) [3] [facility] 03-15-2025 Consult note Associated Order (s): IP CONSULT TO DIETITIAN See dietitian eval dated 03/14/25. Pt tolerating diet well, was started on ensure plus HP BID during admission. Will continue to monitor labs, meds, po intakes and/or enteral nutrition tolerance, skin integrity, wt trends, and overall nutrition status - RD to follow weekly Yasemin Ceron MS, RD, LD Clinical Dietitian Contact: or [employer] Chat (dial *[phone] from hospital phone) [facility] 03-15-2025 Plan of care note Problem: [...] Interventions Goal: Assess Nutritional Intake Outcome: Progressing [facility] 03-15-2025 Note Formatting of this n ote might be different from the original. Care Management Progress Note Cardiology following. Pt in A flutter, trying rate control. Has wound vac on sacral area. Pt is refusing surgery. When stable is a bed hold at [facility]. . Length of Stay (Days): 2 GMLOS: No GMLOS Documented [facility] 03-15-2025 Note Formatting of this n ote might be different from the original. Care Management Progress Note Cardiology following. Pt in A flutter, trying rate control. Has wound vac on sacral area. Pt is refusing surgery. When stable is a bed hold at [facility]. . Length of Stay (Days): 2 GMLOS: No GMLOS Documented [facility] 03-15-2025 Nurse Note Wound Care consulted for Pressure Injury Prevention. Pt's Kee score= 14 on 03/13 Pt's pressure points assessed. Pt's Heels, Back, Elbows, Occiput and ears all intact. [place] and healed area noted to occiput. Pt moving lower extremities well in bed against gravity. Pt currently followed by Wound TELECINE OPERATOR group for wounds to left toes 1-4 and sacrum with wound vac in place. For left toes, sacrum, and sacral wound vac assessments and treatment plan, please see Wound/Ostomy TELECINE OPERATOR progress notes. Instructed pt on pressure injury prevention and importance of turning/postioning every 2hrs while in bed and every 15 min while sitting in chair. Instructed on use and care of waffle chair cushion. Verbalized understanding. Prevention Measures in place, including: [place] sheet with pillows/wedges, Heels elevated off bed on pillows, Zinc/Moisture Barrier ointment (obtained), Waffle chair cushion (obtained for pt). Skin Care precaution order set in place. Dietitian consult order placed d/t wounds. PT/OT consult in place. Will continue to follow pt. Please Vocera for any questions or concerns. Yari Pelletier RN [facility] 03-15-2025 Plan of care note Problem: Knowledge Deficit Goal: Patient/family/caregiver demonstrates understanding of disease process, treatment plan, medications, and discharge instructions Outcome: Progressing Problem: Problem Interventions Goal: Assess Nutritional Intake Outcome: Progressing [facility] 03-14-2025 Plan of care note Problem: Knowledge [...] Interventions Goal: Assess Nutritional Intake Outcome: Progressing [facility] 03-14-2025 Consult note Associated Order (s): [...] ascites and omental edema in upper abdomen.) Mapping Technician Strength: Not Performed Chief Complaint Patient presents with Shortness of Breath Pt arrived from long term via EMS. Pt was starting dialysis and [...] On: Kcal/kg Weight Used for Energy Requirements: [place] Weight for Energy Calculation (kg): 75 kg Total Energy Requirements (kcals/day): 5007-9360 (25-30 kcals/kg) Weight Used for Protein Requirements: [place] Weight in Kg Used for Protein Requirements: [...] TSH 6.88 (H) 03/13/2025 FREET4 0.89 03/15/2025 [id number] 959 (H) 10/22/2019 FOLATE 9.2 10/22/2019 FERRITIN [...] for updated dry wt - per nephro) [place] Body Weight (lbs) (Calculated): 166 lbs [place] Body Weight (Kg) (Calculated): 75 kg % [place] Body Weight (Calculated): 88.6 % BMI (kg/m2) [...] Yasemin Ceron MS, RD, LD Contact: or [employer] Chat (dial *[phone] from hospital phone) [1] Past Medical History: Diagnosis Date Acute renal failure (ARF) ([facility]) 10/19/2019 Anemia 12/30/2021 Calcification of abdominal aorta (HCC) 10/08/202309/[address] abd Diverticulosis 10/08/2023 ESRD on hemodialysis ([facility]) ([facility]) 10/26/2019 Hemodialysis patient ([facility]) ([facility]) HTN (hypertension) 12/01/2022 Hypertension IgA nephropathy IgA nephropathy determined by biopsy of kidney 10/26/2019 Missed vaccination due to patient refusal 10/08/2023 Has a number of non-scientific based beliefs which interfere with his understanding and acceptance of the medical benefit of vaccination. Nonrheumatic aortic valve stenosis 10/08/2023 Paroxysmal A-fib ([facility]) ([facility]) 08/18/2023 Tobacco abuse 10/08/2023 [2] Past Surgical History: Procedure Laterality Date APPENDECTOMY CARDIAC CATHETERIZATION N/A 10/09/2024 Performed by Bob Watson MD at [facility] Cardiac Cath/EP Lab CARDIAC CATHETERIZATION Bilateral 11/01/2024 Performed by Bob Watson MD at [facility] Cardiac Cath/EP Lab CARDIAC CATHETERIZATION N/A 11/01/2024 Performed by Bob Watson MD at [facility] Cardiac Cath/EP Lab COLONOSCOPY N/A 01/24/2025 Performed by Chadd Davis MD at [facility] ENDOSCOPY FISTULAGRAM (HISTORICAL) Left 09/15/2021 LEFT UPPER ARM HX AV FISTULA CREATION IR EMBOLIZATION 10/14/2024 IR EMBOLIZATION 10/14/2024 [facility] SPECIAL PROCEDURES IR FISTULAGRAM 08/07/2022 IR FISTULAGRAM 08/07/2022 [facility] IR IMAGING TONSILLECTOMY (HISTORICAL) [3] Lidocaine, 1 patch, Topical, Daily metoprolol tartrate, 25 mg, Oral, q6h pantoprazole, 40 mg, Oral, BID AC sevelamer carbonate, 800 mg, Oral, TID WC sodium zirconium cyclosilicate, 5 g, Oral, Daily warfarin, 2.5 mg, Oral, Once [4] [facility] 03-14-2025 Hospital Discharg e steven Jones RN - 03/14/2025 2:19 PM EDT My Heart Failure Action Plan Use the below chart as a guide for daily symptom monitoring after you obtain your morning weight. My Skein Yarn Drier: Dr. Shah [facility] Cardiology at [facility] [phone] My Pump Oiler: [facility] [address] [place] [address] My Diagnosis: Heart failure with [...] 5 pounds in a week Call your Pump Oiler/Dialysis center!! My Diet Goal: General diet recommendations [...] Secondary Emergency Contact: [employer]oma Mobile Relation: Partner Past Surgical History: Past Surgical History: Procedure Laterality Date APPENDECTOMY CARDIAC CATHETERIZATION N/A 10/09/2024 Performed by Bob Watson MD at [facility] Cardiac Cath/EP Lab CARDIAC CATHETERIZATION Bilateral 11/01/2024 Performed by Bob Watson MD at [facility] Cardiac Cath/EP Lab CARDIAC CATHETERIZATION N/A 11/01/2024 Performed by Bob Watson MD at [facility] Cardiac Cath/EP Lab COLONOSCOPY N/A 01/24/2025 Performed by Chadd Davis MD at [facility] ENDOSCOPY FISTULAGRAM (HISTORICAL) Left 09/15/2021 LEFT UPPER ARM HX AV FISTULA CREATION IR EMBOLIZATION 10/14/2024 IR EMBOLIZATION 10/14/2024 [facility] SPECIAL PROCEDURES IR FISTULAGRAM 08/07/2022 IR [...] (HCC) Acute respiratory failure with hypoxia ([facility]) [J96.01] Tracheostomy care ([facility]) [Z43.0] 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HCC) director long term care (current) use of antibiotics [...] (70.3 kg) Mental Status: {ROSENDO Patient Mental Status:70133} IV Access: {ROSENDO IV Access:72074} Nursing Mobility/ADLs: Walking {CHRISTY ADL:30247::"Independent"} Transfer {CHRISTY ADL:65178::"Independent"} Bathing {CHRISTY ADL:33545::"Independent"} Dressing {CHRISTY ADL:43951::"Independent"} Toileting {CHRISTY ADL:02497::"Independent"} Feeding {CHRISTY ADL:88413::"Independent"} Roastmaster {CHRISTY ADL:66933::"Independent"} Med Delivery {yes/no:51503} Wound Care Documentation and Therapy: Wound/Incision 11/13/24 Pressure Injury Sacrum (Active) Site Assessment Red;[place] 03/21/25 0402 Mahnaz-Wound Assessment [place] 03/13/251999 Drainage Description Sanguineous 03/13/251999 Odor Malodorous/putrid [...] Site Assessment Black;Painful 03/21/25 0402 Mahnaz-Wound Assessment [place] 03/21/25 0402 Odor None 03/18/25 1500 Drainage [...] Number of days: 7 Elimination: Continence: Bowel: {yes/no:44689} Bladder: {yes/no:} Urinary Catheter: {ROSENDO Urinary Catheter:22092} Colostomy/Ileostomy/Ileal Conduit: {YES / NO:} Date of Last BM: Intake/Output Summary (Last 24 hours) at 03/21/2025 1206 Last data filed at 03/20/2025 1523 Gross per 24 hour Intake 300 ml Output -- Net 300 ml I/O last 3 completed shifts: In: 1338.9 (19 mL/kg) [P.O.:240; I.V.:1098.9 (15.6 mL/kg)] Out: - (0 mL/kg) Weight: 70.3 kg Safety Concerns: {ROSENDO Safety Concerns:21910} Impairments/Disabilities: {ROSENDO Impairments/Disabilities:15382} Nutrition Therapy: Current Nutrition Therapy: {ROSENDO Diet List:13987} Routes of Feeding: {routes of feedin} Liquids: {liquid consistency:32287} Daily Fluid Restriction: {daily fluid restriction:79664} Last Modified Barium Swallow with Video (Video Swallowing Test): {done not done:59719} Treatments at the Time of Hospital Discharge: Respiratory Treatments: Oxygen Therapy: {Therapy; copd oxygen:85505} Ventilator: {ROSENDO Ventilator:34661} Rehab Therapies: {GEN THERAPY DISCIPLINE SCAL:7573977} Weight Bearing Status/Restrictions: {POD WEIGHT BEARIN} Other Medical Equipment (for information only, NOT a DME order): {Assistive Devices DME:78255} Other Treatments: Patient's personal belongings (please select all that are sent with patient): {ROSENDO Patient Belongings:13625} RN SIGNATURE: {E-signature:83348} CASE MANAGEMENT/SOCIAL WORK SECTION Inpatient Status Date: 02-10-25 Discharging to Facility/ Agency Name: [facility] Address:[facility] Fax: Dialysis Facility (if applicable) Name: Address: Dialysis Schedule: Phone: Fax: Welder Setter Electron Beam Machine/Oracle Database Developer signature: ICIAN SECTION Name: Jun Snyder Prognosis: fair Condition at Discharge: stable Rehab Potential (if transferring to Rehab): fair Recommended Labs or Other Treatments After Discharge: none The individual is being admitted to a nursing facility directly from an [facility] or a unit of a reading hospital that is not operated by or licensed by [facility] under section 5119.14 or 5160-3-15.1 5 [...] H&P PHYSICIAN SIGNATURE: documented in this encounter [facility] 03-14-2025 Nurse Note Patient Name: Jun Snyder Patient : 1965 Acct: [id number] Date of Admission: 03/13/2025 [facility] [...] - Before each treatment: Dialysis Machine No.: [id number] RO Machine Number: [id number] Dialyzer Lot No.: [id number] Tubing Lot Number: [id number] All Connections Secure: Yes Venous Parameters Set: Yes Arterial Parameters Set: Yes NS Bag: Yes Saline Line Double Clamped: Yes Dialyzer: Nipro Prime Volume (mL): 200 mL RO Machine Number: [id number] RO Machine Log Sheet Completed: Yes Machine Alarm Self Test: Completed, Passed (03/14/25 1135) Air Foam Detector: Tested, Proper Function, pH Reading Extracorporeal Circuit Tested for Integrity: Yes Machine Conductivity: 13.7 Manual Conductivity: 13.6 Manual Ph: 7 Bleach Test (Neg): Yes Bath Temperature: 36 C (96.8 F) Conductivity Meter Serial #: [id number] Machine Functioning Alarm Free? Yes Dialysis Bath: [...] Other (Comment) (to inform patient arrival from [facility] and need for orders) Provider [...] Active Problem List Diagnosis Anemia Paroxysmal A-fib ([facility] ([facility]) HTN (hypertension) ESRD on hemodialysis ([facility] ([facility]) IgA nephropathy determined by biopsy of kidney [...] with hypoxia (HCC) [J96.01] Tracheostomy care ([facility]) [Z43.0] 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HCC) director long term care (current) use of antibiotics Complication of tracheostomy (CMS/HCC) (HCC) BRBPR (bright red blood per rectum) Hemoptysis SOB (shortness of breath) [3] [facility] 03-14-2025 Consult note Formatting of th is note is different from the original. [facility] Consult Note Consults HPI Jun is [...] 0 min Stress: Stress Concern Present (02/21/2025) [facility] - Occupational Stress Questionnaire Feeling of Stress : To some extent Social Connections: Unknown (02/21/2025) Social Connection and Isolation Panel [NHANES] Frequency of Communication with Friends and Family: More than three times a week Frequency of Social Gatherings with Friends and Family: Patient declined Attends Sikhism Services: Patient declined Active Member of Clubs [...] and sacral wound. Please message me through EPIC chat with any questions or concerns. Wellington Nicole MD 03/14/2025 10:43 AM [facility] [address], [address] [place] [id number] Office: [phone] [1] Past Medical History: Diagnosis Date Acute renal failure (ARF) ([facility]) 10/19/2019 Anemia 12/30/2021 Calcification of abdominal aorta ([facility]) 10/08/202309/[address] abd Diverticulosis 10/08/2023 ESRD on hemodialysis ([facility]) ([facility]) 10/26/2019 Hemodialysis patient ([facility]) ([facility]) HTN (hypertension) 12/01/2022 Hypertension IgA nephropathy IgA nephropathy determined by biopsy of kidney 10/26/2019 Missed vaccination due to patient refusal 10/08/2023 Has a number of non-scientific based beliefs which interfere with his understanding and acceptance of the medical benefit of vaccination. Nonrheumatic aortic valve stenosis 10/08/2023 Paroxysmal A-fib ([facility]) ([facility]) 08/18/2023 Tobacco abuse 10/08/2023 [2] Family History [...] ODT OR ondansetron, polyethylene glycol (PEG) 3350 [facility] 03-14-2025 Note Formatting of this n ote might be different from the original. Care Management Progress Note Pt was sent to ER from dialysis due to shortness of breath. Needs PVR of BLE. Nephrology, Vascular and therapies are following. Wants to return to [facility]. Is a bed hold, but if they can skill him they would like to.. Length of Stay (Days): 1 GMLOS: No GMLOS Documented [facility] 03-14-2025 Note Formatting of this n ote might be different from the original. Care Management Progress Note Pt was sent to ER from dialysis due to shortness of breath. Needs PVR of BLE. Nephrology, Vascular and therapies are following. Wants to return to [facility]. Is a bed hold, but if they can skill him they would like to.. Length of Stay (Days): 1 GMLOS: No GMLOS Documented [facility] 03-14-2025 Consult note Associated Order (s): IP CONSULT TO CARDIOLOGY [facility] Cardiology /Electrophysiology Consult Note Reason for Consult/Chief Complaint: Volume overload, afib rvr Referring provider: Dr Kidd Established welding machine operator resistance: Dr Shah History of Present Illness: Jun [...] to select rehab. He recently was at [facility] for Klebsiella pneumonia, hemoptysis and lung abscess [...] of Cardiovascular Disease, Division of Heart Failure [facility] 3:25 PM 03/14/25 [facility] Work Phone: 03-14-2025 Consult note Associated Order (s): INPATIENT CONSULT TO WOUND CARE PROVIDERS Images from the original note were not included. [facility] Wound VAC CONSULT Note Jun Snyder [...] to follow Recommend to follow up at [facility] wound care center after hospital discharge. [...] Diagnosis Date Acute renal failure (ARF) ([facility]) 10/19/2019 Anemia 12/30/2021 Calcification of abdominal aorta ([facility]) 10/08/202309/[address] abd Diverticulosis 10/08/2023 ESRD on hemodialysis ([facility] ([facility]) 10/26/2019 Hemodialysis patient ([facility]) ([facility]) HTN (hypertension) 12/01/2022 Hypertension IgA nephropathy IgA nephropathy determined by biopsy of kidney 10/26/2019 Missed vaccination due to patient refusal 10/08/2023 Has a number of non-scientific based beliefs which interfere with his understanding and acceptance of the medical benefit of vaccination. Nonrheumatic aortic valve stenosis 10/08/2023 Paroxysmal A-fib ([facility] ([facility]) 08/18/2023 Tobacco abuse 10/08/2023 [2] Past Surgical History: Procedure Laterality Date APPENDECTOMY CARDIAC CATHETERIZATION N/A 10/09/2024 Performed by Bob Watson MD at [facility] Cardiac Cath/EP Lab CARDIAC CATHETERIZATION Bilateral 11/01/2024 Performed by Bob Watson MD at [facility] Cardiac Cath/EP Lab CARDIAC CATHETERIZATION N/A 11/01/2024 Performed by Bob Watson MD at [facility] Cardiac Cath/EP Lab COLONOSCOPY N/A 01/24/2025 Performed by Chadd Davis MD at [facility] ENDOSCOPY FISTULAGRAM (HISTORICAL) Left 09/15/2021 LEFT UPPER ARM HX AV FISTULA CREATION IR EMBOLIZATION 10/14/2024 IR EMBOLIZATION 10/14/2024 [facility] SPECIAL PROCEDURES IR FISTULAGRAM 08/07/2022 IR FISTULAGRAM 08/07/2022 [facility] IR IMAGING TONSILLECTOMY (HISTORICAL) [3] [...] Gill DO at 03/19/2025 4:44 PM EDT T [facility] 03-14-2025 Note Formatting of this n ote might be different from the original. [facility] request. Await review and response regarding ability to accept. [facility] notified. [facility] 03-14-2025 Note Formatting of this n ote might be different from the original. Referral placed to [facility] via [facility] per [facility] request. Await review and response regarding ability to accept. [facility] notified. [facility] 03-14-2025 Note Referral placed to [facility] via [facility] per [facility] request. Await review and response regarding ability to accept. [facility] notified. Electronically signed by NELSON Rodrigues [facility] 03-13-2025 Plan of care note Problem: Knowledge Deficit Goal: Patient/family/caregiver demonstrates understanding of disease process, treatment plan, medications, and discharge instructions Outcome: Progressing Problem: Potential for Compromised Skin Integrity Goal: Skin Integrity is Maintained or Improved Outcome: Progressing [facility] 03-13-2025 Nurse Note Removed wound vac that patient arrived to 5w from ecf pictures of all wound taken on rover and saved to chart NSWto DSD applied to sacral wound [facility] 03-13-2025 History and physical note [facility] Attending History and Physical Admit Date: 03/13/2025 [...] Klebsiella pneumonia with lung abscess presented to [place] ED with worsening shortness of breath. He [...] in upper abdomen He was transferred from [place] ED to [facility] due to bed availability Past Medical [...] 0 min Stress: Stress Concern Present (02/21/2025) [facility]ational [facility] - Occupational Stress Questionnaire Feeling of Stress : To some extent Social Connections: Unknown (02/21/2025) Social Connection and Isolation Panel [NHANES] Frequency of Communication with Friends and Family: More than three times a week Frequency of Social Gatherings with Friends and Family: Patient declined Attends Sikhism Services: Patient declined Active Member of Clubs [...] made to ensure accuracy; however, inadvertent computerized regional climate change analyst errors may be present. Rubi Sanon MD, Division of Hospitalist Medicine Acute Care [facility] Please forward a copy of this H&P to the patient's PCP. Thank you. Electronically signed by Rubi Sanon MD at 5:11 PM [1] Past Medical History: Diagnosis Date Acute renal failure (ARF) ([facility]) 10/19/2019 Anemia 12/30/2021 Calcification of abdominal aorta (HCC) 10/08/202309/[address] abd Diverticulosis 10/08/2023 ESRD on hemodialysis ([facility] ([facility]) 10/26/2019 Hemodialysis patient ([facility] ([facility]) HTN (hypertension) 12/01/2022 Hypertension IgA nephropathy IgA [...] 10/09/2024 Performed by Bob Watson MD at [facility] Cardiac Cath/EP Lab CARDIAC CATHETERIZATION Bilateral 11/01/2024 Performed by Bob Watson MD at [facility] Cardiac Cath/EP Lab CARDIAC CATHETERIZATION N/A 11/01/2024 Performed by Bob Watson MD at [facility] Cardiac Cath/EP Lab COLONOSCOPY N/A 01/24/2025 Performed by Chadd Davis MD at [facility] ENDOSCOPY FISTULAGRAM (HISTORICAL) Left 09/15/2021 LEFT UPPER ARM HX AV FISTULA CREATION IR EMBOLIZATION 10/14/2024 IR EMBOLIZATION 10/14/2024 [facility] SPECIAL PROCEDURES IR FISTULAGRAM 08/07/2022 IR FISTULAGRAM 08/07/2022 [facility] IR IMAGING TONSILLECTOMY (HISTORICAL) [3] Family History Problem Relation Name Age of Onset No Known Problems Mother No Known Problems Father [4] No current facility-administered medications for this encounter. [5] Allergies Allergen Reactions Lisinopril Swelling and Angioedema [facility] 03-13-2025 Note [facility] 03-13-2025 History and physical note [facility] Attending History and Physical Admit Date: 03/13/2025 [...] Klebsiella pneumonia with lung abscess presented to [place] ED with worsening shortness of breath. He [...] in upper abdomen He was transferred from [place] ED to [facility] due to bed availability Past Medical [...] 0 min Stress: Stress Concern Present (02/21/2025) [facility] - Occupational Stress Questionnaire Feeling of Stress : To some extent Social Connections: Unknown (02/21/2025) Social Connection and Isolation Panel [NHANES] Frequency of Communication with Friends and Family: More than three times a week Frequency of Social Gatherings with Friends and Family: Patient declined Attends Sikhism Services: Patient declined Active Member of Clubs [...] differential Comprehensive metabolic panel Blood gas, venous ([facility] and [facility]) Protime-INR Serial Troponin, High Sensitivity Troponin, High Sensitivity, Serial, Second Test Adult diet Regular Telemetry monitoring for Arrhythmia Management ECG 12 lead Admit to inpatient Code status: Prior- NOTE: This report was transcribed using voice recognition software. Every effort was made to ensure accuracy; however, inadvertent computerized regional climate change analyst errors may be present. Rubi Sanon MD,MD Division of Hospitalist Medicine [facility] Please forward a copy of this H&P to the patient's PCP. Thank you. Electronically signed by Rubi Sanon MD at 5:11 PM [1] Past Medical History: Diagnosis Date Acute renal failure (ARF) ([facility]) 10/19/2019 Anemia 12/30/2021 Calcification of abdominal aorta ([facility]) 10/08/202309/[address] abd Diverticulosis 10/08/2023 ESRD on hemodialysis ([facility] ([facility]) 10/26/2019 Hemodialysis patient ([facility]) ([facility]) HTN (hypertension) 12/01/2022 Hypertension IgA nephropathy IgA nephropathy determined by biopsy of kidney 10/26/2019 Missed vaccination due to patient refusal 10/08/2023 Has a number of non-scientific based beliefs which interfere with his understanding and acceptance of the medical benefit of vaccination. Nonrheumatic aortic valve stenosis 10/08/2023 Paroxysmal A-fib ([facility]) ([facility]) 08/18/2023 Tobacco abuse 10/08/2023 [2] Past Surgical History: Procedure Laterality Date APPENDECTOMY CARDIAC CATHETERIZATION N/A 10/09/2024 Performed by Bob Watson MD at [facility] Cardiac Cath/EP Lab CARDIAC CATHETERIZATION Bilateral 11/01/2024 Performed by Bob Watson MD at [facility] Cardiac Cath/EP Lab CARDIAC CATHETERIZATION N/A 11/01/2024 Performed by Bob Watson MD at [facility] Cardiac Cath/EP Lab COLONOSCOPY N/A 01/24/2025 Performed by Chadd Davis MD at [facility] ENDOSCOPY FISTULAGRAM (HISTORICAL) Left 09/15/2021 LEFT UPPER ARM HX AV FISTULA CREATION IR EMBOLIZATION 10/14/2024 IR EMBOLIZATION 10/14/2024 [facility] SPECIAL PROCEDURES IR FISTULAGRAM 08/07/2022 IR FISTULAGRAM 08/07/2022 [facility] IR IMAGING TONSILLECTOMY (HISTORICAL) [3] Family History Problem Relation Name Age of Onset No Known Problems Mother No Known Problems Father [4] No current facility-administered medications for this encounter. [5] Allergies Allergen Reactions Lisinopril Swelling and Angioedema documented in this encounter [facility] 03-13-2025 Emergency department Note When this RN came [facility] Pt was already taken to [facility] by Consuelo Day. RN covering my lunch called report to RN at [facility] 03-13-2025 Emergency department Note When this RN came back from lunch Pt was already taken to [facility] by Consuelo Day. RN covering my lunch called report to RN at [facility]. Called report to SWEETIE Linder at 5W. Consuelo Johnson at bedside to transport patient to [facility]. Emergency Department Encounter Pt Name: Jun Snyder Birthdate 1965 Date of evaluation: 03/13/2025 Provider: Keiry Solares MD CHIEF COMPLAINT Chief Complaint Patient presents with Shortness of Breath Pt arrived from long term via EMS. Pt was starting dialysis and [...] alert. Psychiatric: Mood and Affect: Mood normal. [place] Coma Scale Best Eye Response: Spontaneous Best [...] PE. ED course: ED Course as of 03/13/252112 Tue Mar 13, 2025 0846 I interpreted the [...] Hoffman, due to no available beds at [place] and available beds at [facility] patient wishes to be transferred. I discussed the case with Dr. Sanon at [facility] who accepts patient for transfer. Chronic conditions and social determinants of health affecting care: atrial fibrillation, ESRD DISPOSITION/PLAN Admit 03/13/2025 02:55:43 PM Keiry Solares MD Emergency Medicine [1] Past Medical History: Diagnosis Date Acute renal failure (ARF) ([facility]) 10/19/2019 Anemia 12/30/2021 Calcification of abdominal aorta ([facility]) 10/08/202309/[address] abd Diverticulosis 10/08/2023 ESRD on hemodialysis ([facility] ([facility]) 10/26/2019 Hemodialysis patient ([facility] ([facility]) HTN (hypertension) 12/01/2022 Hypertension IgA nephropathy IgA nephropathy determined by biopsy of kidney 10/26/2019 Missed vaccination due to patient refusal 10/08/2023 Has a number of non-scientific based beliefs which interfere with his understanding and acceptance of the medical benefit of vaccination. Nonrheumatic aortic valve stenosis 10/08/2023 Paroxysmal A-fib (CMS/HCC) (HCC) 08/18/2023 Tobacco abuse 10/08/2023 Keiry Solares MD 03/13/25 2116 documented in this encounter [facility] 03-13-2025 Emergency department Note Called report to SWEETIE Linder at 5W. [facility] 03-13-2025 Emergency department Note Consuelo Johnson at bedside to transport patient to [facility]. [facility] 03-13-2025 Physician Emergen cy department Note Emergency Department Encounter Pt Name: Jun Snyder Birthdate 1965 Date of evaluation: 03/13/2025 Provider: Keiry Solares MD CHIEF COMPLAINT Chief Complaint Patient presents with Shortness of Breath Pt arrived from long term via EMS. Pt was starting dialysis and [...] Hoffman, due to no available beds at [place] and available beds at [facility] patient wishes to be transferred. I discussed the case with Dr. Sanon at [facility] who accepts patient for transfer. Chronic conditions and social determinants of health affecting care: atrial fibrillation, ESRD DISPOSITION/PLAN Admit 03/13/2025 02:55:43 PM Keiry Solares MD Emergency Medicine [1] Past Medical History: Diagnosis Date Acute renal failure (ARF) ([facility]) 10/19/2019 Anemia 12/30/2021 Calcification of abdominal aorta ([facility]) 10/08/202309/[address] abd Diverticulosis 10/08/2023 ESRD on hemodialysis ([facility] ([facility]) 10/26/2019 Hemodialysis patient ([facility] ([facility]) HTN (hypertension) 12/01/2022 Hypertension IgA nephropathy IgA nephropathy determined by biopsy of kidney 10/26/2019 Missed vaccination due to patient refusal 10/08/2023 Has a number of non-scientific based beliefs which interfere with his understanding and acceptance of the medical benefit of vaccination. Nonrheumatic aortic valve stenosis 10/08/2023 Paroxysmal A-fib ([facility]) ([facility]) 08/18/2023 Tobacco abuse 10/08/2023 Keiry Solares MD 03/13/252115 [facility] 03-08-2025 History of Presen t illness Narrative Pt was followed by the Palliative Care Team during hospitalization at [facility]. Provider is recommending continued Palliative follow up in the community. Referral made too [facility] Palliative Care Team, faxed info to [phone] documented in this encounter [facility] 03-08-2025 Telephone encount er Note 2nd attempt called and spoke to the Alyssa the Nurse for the patient at the facility he lives at. She states Sabino is the person who schedules the appointments and she is on vacation and wont be back till next Wednesday. I will try again next wednesday [facility] 03-08-2025 Miscellaneous Notes Formattin g of [...] this? Thank you documented in this encounter [facility] 03-05-2025 History of Presen t illness Narrative Images from the original note were not included. PHYSICAL THERAPY [facility] Treatment Note Name/MRN: Jair Snyder ([id number]) Date of : 1965 Age: 59 y.o. Room/Bed: W3-334/W3-334 A Discharge Recommendation: [facility] Facility Equipment Needed: (tbd) Assessment Increased time [...] any questions or concerns Bree Molina APRN HAND I BLOCKER A-G TELECINE OPERATOR [facility] [phone] I reviewed with MAKEUP SALES CONSULTANT-HAND I BLOCKER the medical history and the findings on physical examination. I discussed the patient s diagnosis and concur with the treatment plan as documented in his note. Please call [phone] or message me through [employer] with any questions or concerns. [facility] Anticoagulation Management Service ([facility]) Inpatient Warfarin Consult HPI: Jun Snyder is a 59 y.o. male admitted on 02/20/2025 for Hemoptysis [R04.2]. Medical History[1] Patient is on warfarin for mechanical AVR and has a goal INR 2.0 - 3.0. Patient was referred to [facility], but so far has been managed at facilities, most recently [facility]. Pt's home dose of warfarin is 1.5mg daily except 2.5mg on MWF. Pt's last INR at the facility was 1.4 on 02/20. S/sx of bleeding= none noted Interacting medications= none Labs: Recent Labs 03/03/25 0212 03/04/25 0156 03/05/25 0343 HGB 8.3* 7.7* 7.7* HCT 27.8* 25.9* 25.7* PLT [phone] Recent Labs 03/05/25 0343 INR 1.8* Date INR Dose 6 1.8 7.5mg 6/8 1.5 7.5 mg 6/7 1.6 6 mg 6/6 1.4 5mg 6/5 1.4 4mg 6/4 1.3 3mg 6/ 1.3 2mg 6/ 1.3 1.5mg 6/ 1.3 1 mg 02/24 [...] over when discharged from facility. Tiffanie Dial [facility] Consult Service is available daily [phone] via [employer] Secure Chat. [1] Past Medical History: Diagnosis Date Acute renal failure (ARF) (HCC) 10/19/2019 Anemia 12/30/2021 Calcification of abdominal aorta ([facility]) 10/08/202309/[address] abd Diverticulosis 10/08/2023 ESRD on hemodialysis ([facility] ([facility]) 10/26/2019 Hemodialysis patient ([facility] ([facility]) HTN (hypertension) 12/01/2022 Hypertension IgA nephropathy IgA nephropathy determined by biopsy of kidney 10/26/2019 Missed vaccination due to patient refusal 10/08/2023 Has a number of non-scientific based beliefs which interfere with his understanding and acceptance of the medical benefit of vaccination. Nonrheumatic aortic valve stenosis 10/08/2023 Paroxysmal A-fib ([facility] ([facility]) 08/18/2023 Tobacco abuse 10/08/2023 Hospitalist Progress Note - [facility] ([facility]) 03/05/2025 7:13 AM [phone]: Please page me for patient care issues. [phone]: Please page [facility] Hospitalist - [facility] for any issues. Subjective and Objective: Admit [...] was bright red and it stopped just SANFORIZING MACHINE OPERATOR when in transport. Adult diet Regular [...] - (0 mL/kg) Weight: 60.8 kg @IODETAILS@ @[id number]@ Medications: Continuous Meds[1] Scheduled Meds[2] Recent Labs [...] "CHOL" No results found for: "PHART", "PO2ART", "[id number]" Recent Labs 03/04/25 0156 03/04/25 0946 03/05/25 [...] medically stable for discharge - Location - [facility] ([facility]) - Pending the following - dispo, [...] DO Division of Hospitalist Medicine Inpatient Medical Services/[facility] [1] heparin, 5-30 Units/kg/hr, Last Rate: 21 [...] original note were not included. PHYSICAL THERAPY [facility] Name/MRN: Jair Snyder ([id number]) Date: 03/04/2025 Attempted to initiate PT this date; upon arrival, patient states he is needs to have a bowel movement and does not want to do PT. Offered to ambulate patient to bathroom or use of a bedpan however patient declines. Will continue to follow. Emily Stanley SANFORIZING MACHINE OPERATOR Cosigned by Darryn Tay, PT at 03/04/2025 3:38 PM EDT Hospitalist Progress Note - [facility] ([facility]) 03/04/2025 9:11 AM [phone]: Please page me for patient care issues. [phone]: Please page [facility] Hospitalist - [facility] for any issues. Subjective and Objective: Admit [...] was bright red and it stopped just SANFORIZING MACHINE OPERATOR when in transport. Adult diet Regular [...] - (0 mL/kg) Weight: 60.8 kg @IODETAILS@ @[id number]@ Medications: Continuous Meds[1] Scheduled Meds[2] Recent Labs [...] "CHOL" No results found for: "PHART", "PO2ART", "[id number]" Recent Labs 03/02/25 0004 03/03/25 0212 03/04/25 [...] - 03/04 - 05/05 - Location - [facility] ([facility]) - Pending the following - INR [...] DO Division of Hospitalist Medicine Inpatient Medical Services/[facility] [1] heparin, 5-30 Units/kg/hr, Last Rate: 20 [...] electrolyte and CBC daily Maryam Marcelo DO [facility] Anticoagulation Management Service ([facility]) Inpatient Warfarin Consult HPI: Jun Snyder is a 59 y.o. male admitted on 02/20/2025 for Hemoptysis [R04.2]. Medical History[1] Patient is on warfarin for mechanical AVR and has a goal INR 2.0 - 3.0. Patient was referred to [facility], but so far has been managed at facilities, most recently [facility]. Pt's home dose of warfarin is [...] 03/03/25 0212 INR 1.6* Date INR Dose 8 1.5 7.5 mg 6/7 1.6 6 mg 03/02 1.4 5mg 6/5 1.4 4mg / 1.3 3mg 02/27 1.3 2mg / 1.3 1.5mg / 1.3 1 mg 02/24 [...] PharmD [facility] Consult Service is available daily [phone] via [employer] Secure Chat. [1] Past Medical History: Diagnosis Date Acute renal failure (ARF) ([facility]) 10/19/2019 Anemia 12/30/2021 Calcification of abdominal aorta ([facility]) 10/08/202309/[address] abd Diverticulosis 10/08/2023 ESRD on hemodialysis ([facility]) ([facility]) 10/26/2019 Hemodialysis patient ([facility]) ([facility]) HTN (hypertension) 12/01/2022 Hypertension IgA nephropathy IgA nephropathy determined by biopsy of kidney 10/26/2019 Missed vaccination due to patient refusal 10/08/2023 Has a number of non-scientific based beliefs which interfere with his understanding and acceptance of the medical benefit of vaccination. Nonrheumatic aortic valve stenosis 10/08/2023 Paroxysmal A-fib ([facility] ([facility]) 08/18/2023 Tobacco abuse 10/08/2023 Hospitalist Progress Note - [facility] - [employer] ([facility]) 03/03/2025 8:37 AM [phone]: Please page me for patient care issues. [phone]: Please page [facility] Hospitalist - [facility] for any issues. Subjective and Objective: Admit [...] was bright red and it stopped just SANFORIZING MACHINE OPERATOR when in transport. Adult diet Regular [...] (0.4 mL/kg) [Drains:25] Weight: 60.8 kg @IODETAILS@ @[id number]@ Medications: Continuous Meds[1] Scheduled Meds[2] Recent Labs [...] "CHOL" No results found for: "PHART", "PO2ART", "[id number]" Recent Labs 03/01/25 0003 03/02/25 0004 03/03/25 [...] Date - 03/04 - Location - SNF ([facility]) - Pending the following - INR [...] DO Division of Hospitalist Medicine Inpatient Medical Services/[facility] [1] heparin, 5-30 Units/kg/hr, Last Rate: 20 [...] any questions or concerns Bree Molina APRN HAND I BLOCKER A-G TELECINE OPERATOR [facility] [phone] Pt seen and examined independently by me. I reviewed with MAKEUP SALES CONSULTANT-HAND I BLOCKER the medical history and the findings on physical examination. I discussed the patient s diagnosis and concur with the treatment plan as documented in his note. Please call [phone] or message me through [employer] with any questions or concerns. Hospitalist Progress Note - [facility] - [employer] ([facility]) 03/02/2025 8:20 AM [phone]: Please page me for patient care issues. [phone]: Please page [facility] Hospitalist - [facility] for any issues. Subjective and Objective: Admit [...] was bright red and it stopped just SANFORIZING MACHINE OPERATOR when in transport. Adult diet Regular [...] (0.7 mL/kg) [Drains:40] Weight: 60.8 kg @IODETAILS@ @[id number]@ Medications: Continuous Meds[1] Scheduled Meds[2] Recent Labs [...] "CHOL" No results found for: "PHART", "PO2ART", "[id number]" Recent Labs 02/28/25 0004 03/01/25 0003 03/02/25 [...] Date - 03/03 - Location - SNF ([facility]) - Pending the following - INR [...] DO Division of Hospitalist Medicine Inpatient Medical Services/[facility] [1] heparin, 5-30 Units/kg/hr, Last Rate: 19 Units/kg/hr (03/02/25 0813) [2] B complex-vitamin C-folic acid, 1 capsule, Oral, Daily metoprolol tartrate, 25 mg, Oral, BID pantoprazole, 40 mg, Oral, BID AC piperacillin-tazobactam, 2,250 mg, IntraVENous, q6h QUEtiapine, 25 mg, Oral, Nightly sevelamer carbonate, 800 mg, Oral, TID WC warfarin, 5 mg, Oral, Once [facility] Anticoagulation Management Service ([facility]) Inpatient Warfarin Consult HPI: Jun Snyder is a 59 y.o. male admitted on 02/20/2025 for Hemoptysis [R04.2]. Medical History[1] Patient is on warfarin for mechanical AVR and has a goal INR 2.0 - 3.0. Patient was referred to [facility], but so far has been managed at facilities, most recently [facility]. Pt's home dose of warfarin is [...] over when discharged from facility. Fatuma Odonnell [facility] Consult Service is available daily [phone] via [employer] Secure Chat. [1] Past Medical History: Diagnosis Date Acute renal failure (ARF) ([facility]) 10/19/2019 Anemia 12/30/2021 Calcification of abdominal aorta ([facility]) 10/08/202309/[address] abd Diverticulosis 10/08/2023 ESRD on hemodialysis ([facility] ([facility]) 10/26/2019 Hemodialysis patient ([facility] ([facility]) HTN (hypertension) 12/01/2022 Hypertension IgA nephropathy IgA nephropathy determined by biopsy of kidney 10/26/2019 Missed vaccination due to patient refusal 10/08/2023 Has a number of non-scientific based beliefs which interfere with his understanding and acceptance of the medical benefit of vaccination. Nonrheumatic aortic valve stenosis 10/08/2023 Paroxysmal A-fib (CMS/HCC) (HCC) 08/18/2023 Tobacco abuse 10/08/2023 Images from the original note were not included. PHYSICAL THERAPY [facility] Treatment Note Name/MRN: Jair Snyder ([id number]) Date of : 1965 Age: 59 y.o. Room/Bed: W3-334/W3-334 A Discharge Recommendation: Retirement Facility Equipment Needed: No Assessment Good distance, [...] Timed Code Treatment Minutes: (gt-fa) Merlene León SANFORIZING MACHINE OPERATOR Cosigned by Anthony Black PT at 03/01/2025 4:34 PM EDT Associated attestation - Anthony Black, PT - 03/01/2025 4:34 PM EDT Did not have opportunity today to speak to SANFORIZING MACHINE OPERATOR re: recommendation. Mobility appears to be consistent with homegoing, but know that medical conditions and other factors clearly could influence recommendations. Images from the original note were not included. OCCUPATIONAL THERAPY [facility] Treatment Note Name/MRN: Jair Snyder ([id number]) Date of : 1965 Age: 59 y.o. Room/Bed: W3-334/W3-334 A Discharge Recommendation: Retirement Facility Other: DME TBD at next level [...] with any questions or concerns Bree Molina MAKEUP SALES CONSULTANT HAND I BLOCKER A-G TELECINE OPERATOR [facility] [phone] Pt seen and examined independently by me. I reviewed with Jun Maki, the medical history and the findings on physical examination. I discussed the patient s diagnosis and concur with the treatment plan as documented in his note. Please call [phone] or message me through [employer] with any questions or concerns. Hospitalist Progress Note - [facility] - [employer] ([facility]) 03/01/2025 9:51 AM [phone]: Please page me for patient care issues. [phone]: Please page [facility] - [facility] for any issues. Subjective and Objective: Admit [...] was bright red and it stopped just SANFORIZING MACHINE OPERATOR when in transport. Adult diet Regular Dietary Orders (From admission, onward) Start Ordered 02/27/25 1254 Supplement:Breakfast, Dinner; Nepro w/CARB Steady Until discontinued Question Answer Comment Frequency Breakfast Frequency Dinner Select supplement: Nepro w/CARB Steady 02/27/25 1254 02/21/25 1021 Adult diet Regular Diet effective now Question: Diet type Answer: Regular 02/21/25 1021 No intake/output data recorded. @IODETAILS@ @[id number]@ Medications: Continuous Meds[1] Scheduled Meds[2] Recent Labs [...] "CHOL" No results found for: "PHART", "PO2ART", "[id number]" Recent Labs 02/27/25 0010 02/28/25 0004 03/01/25 [...] - 03/01 - 03/02 - Location - [facility] ([facility]) - Pending the following - INR [...] DO Division of Hospitalist Medicine Inpatient Medical Services/[facility] [1] heparin, 5-30 Units/kg/hr, Last Rate: 18 Units/kg/hr (03/01/25728) [2] B complex-vitamin C-folic acid, 1 capsule, Oral, Daily metoprolol tartrate, 25 mg, Oral, BID pantoprazole, 40 mg, Oral, BID AC piperacillin-tazobactam, 2,250 mg, IntraVENous, q6h QUEtiapine, 25 mg, Oral, Nightly sevelamer carbonate, 800 mg, Oral, TID WC warfarin, 4 mg, Oral, Once Images from the original note were not included. PHYSICAL THERAPY [facility] Name/MRN: Jair Snyder ([id number]) Date: 03/01/2025 Leaving for dialysis. Return later time/date for PT. Merlene León PTA Cosigned by Anthony Black, PT at 03/01/2025 8:42 AM EDT [facility] Anticoagulation Management Service ([facility]) Inpatient Warfarin Consult HPI: Jun Snyder is a 59 y.o. male admitted on 02/20/2025 for Hemoptysis [R04.2]. Medical History[1] Patient is on warfarin for mechanical AVR and has a goal INR 2.0 - 3.0. Patient was referred to [facility], but so far has been managed at facilities, most recently [facility]. Pt's home dose of warfarin is [...] over when discharged from facility. Fatuma Odonnell [facility] Consult Service is available daily [phone] via [employer] Secure Chat. [1] Past Medical History: Diagnosis Date Acute renal failure (ARF) (HCC) 10/19/2019 Anemia 12/30/2021 Calcification of abdominal aorta (HCC) 10/08/202309/[address] abd Diverticulosis 10/08/2023 ESRD on hemodialysis ([facility] ([facility]) 10/26/2019 Hemodialysis patient ([facility]) ([facility]) HTN (hypertension) 12/01/2022 Hypertension IgA nephropathy IgA nephropathy determined by biopsy of kidney 10/26/2019 Missed vaccination due to patient refusal 10/08/2023 Has a number of non-scientific based beliefs which interfere with his understanding and acceptance of the medical benefit of vaccination. Nonrheumatic aortic valve stenosis 10/08/2023 Paroxysmal A-fib ([facility]) ([facility]) 08/18/2023 Tobacco abuse 10/08/2023 Nephrology Progress Note [...] any questions or concerns Bree Molina APRN HAND I BLOCKER A-G TELECINE OPERATOR [facility] [phone] Pt seen and examined independently by me. I reviewed with MAKEUP SALES CONSULTANT-HAND I BLOCKER the medical history and the findings on physical examination. I discussed the patient s diagnosis and concur with the treatment plan as documented in his note. Please call [phone] or message me through [employer] with any questions or concerns. Hospitalist Progress Note - [facility] - [employer] ([facility]) 02/28/2025 8:23 AM [phone]: Please page me for patient care issues. [phone]: Please page [facility] Hospital[facility] - [facility] for any issues. Subjective and Objective: Admit [...] was bright red and it stopped just SANFORIZING MACHINE OPERATOR when in transport. Adult diet Regular [...] [Urine:450 (0.2 mL/kg/hr)] Weight: 60.8 kg @IODETAILS@ @[id number]@ Medications: Continuous Meds[1] Scheduled Meds[2] Recent Labs [...] "CHOL" No results found for: "PHART", "PO2ART", "[id number]" Recent Labs 02/25/25 2345 02/27/25 0010 02/28/25 [...] - 03/01 - 03/02 - Location - [facility]) - Pending the following - INR [...] DO Division of Hospitalist Medicine Inpatient Medical Services/[facility] [1] heparin, 5-30 Units/kg/hr, Last Rate: 18 Units/kg/hr (02/28/25 0714) [2] B complex-vitamin C-folic acid, 1 capsule, Oral, Daily metoprolol tartrate, 25 mg, Oral, BID pantoprazole, 40 mg, Oral, qAM AC piperacillin-tazobactam, 4,500 mg, IntraVENous, q8h QUEtiapine, 25 mg, Oral, Nightly sevelamer carbonate, 800 mg, Oral, TID WC warfarin, 3 mg, Oral, Once Images from the original note were not included. [facility] Wound Care/[facility] Progress Note Jun Snyder [...] 0.5x0.5xUTDcm. dry gangrene, no odor, no drainage. Mhanaz-wound intact. Stable 02/28/25 Left plantar heel - 1.0 x 1.0 x utd(cm) - wound bed with with dry eschar, no drainage, mahnaz wound tissue intact 02/28/25 Right wrist - no opened areas. Fading bruising noted. No drainage. 02/28/25 Sacrum: Focused assessment on sacral wound VAC dressing change. Patient premedicated for pain with pain medication, per staff nurse icu resource team, prior to wound VAC dressing change. Wet [...] apply Betadine and allow to dry, leave INFANTRY ASSAULTMAN daily and PRN Left plantar heel - unstageable pressure injury (POA): -cleanse with NS, apply Betadine and allow to dry, leave INFANTRY ASSAULTMAN daily and PRN Right wrist Abrasion: -cleanse [...] to follow Recommend to follow up at [facility] Outpatient wound care center after hospital discharge. Any questions or concerns please secure chat "[facility] wound/ostomy". Thank you for the consult! [...] Diagnosis Date Acute renal failure (ARF) ([facility]) 10/19/2019 Anemia 12/30/2021 Calcification of abdominal aorta ([facility]) 10/08/202309/[address] abd Diverticulosis 10/08/2023 ESRD on hemodialysis ([facility]) ([facility]) 10/26/2019 Hemodialysis patient ([facility]) ([facility]) HTN (hypertension) 12/01/2022 Hypertension IgA nephropathy IgA nephropathy determined by biopsy of kidney 10/26/2019 Missed vaccination due to patient refusal 10/08/2023 Has a number of non-scientific based beliefs which interfere with his understanding and acceptance of the medical benefit of vaccination. Nonrheumatic aortic valve stenosis 10/08/2023 Paroxysmal A-fib ([facility]) ([facility]) 08/18/2023 Tobacco abuse 10/08/2023 [2] Past Surgical History: Procedure Laterality Date APPENDECTOMY CARDIAC CATHETERIZATION N/A 10/09/2024 Performed by Bob Watson MD at [facility] Cardiac Cath/EP Lab CARDIAC CATHETERIZATION Bilateral 11/01/2024 Performed by Bob Watson MD at [facility] Cardiac Cath/EP Lab CARDIAC CATHETERIZATION N/A 11/01/2024 Performed by Bob Watson MD at [facility] Cardiac Cath/EP Lab COLONOSCOPY N/A 01/24/2025 Performed by Chadd Davis MD at [facility] ENDOSCOPY FISTULAGRAM (HISTORICAL) Left 09/15/2021 LEFT UPPER ARM HX AV FISTULA CREATION IR EMBOLIZATION 10/14/2024 IR EMBOLIZATION 10/14/2024 [facility] SPECIAL PROCEDURES IR FISTULAGRAM 08/07/2022 IR [...] Gill DO at 03/01/2025 2:50 PM EDT [facility] Anticoagulation Management Service ([facility]) Inpatient Warfarin Consult HPI: Jun Snyder is a 59 y.o. male admitted on 02/20/2025 for Hemoptysis [R04.2]. Medical History[1] Patient is on warfarin for mechanical AVR and has a goal INR 2.0 - 3.0. Patient was referred to [facility], but so far has been managed at facilities, most recently [facility]. Pt's home dose of warfarin is [...] will take over when discharged from facility. Fautma Odonnell RPh [facility] Consult Service is available daily [phone] via [employer] Secure sarvaMAIL. [1] Past Medical History: Diagnosis Date Acute renal failure (ARF) ([facility]) 10/19/2019 Anemia 12/30/2021 Calcification of abdominal aorta ([facility]) 10/08/202309/[address] abd Diverticulosis 10/08/2023 ESRD on hemodialysis ([facility] ([facility]) 10/26/2019 Hemodialysis patient ([facility] ([facility]) HTN (hypertension) 12/01/2022 Hypertension IgA nephropathy IgA nephropathy determined by biopsy of kidney 10/26/2019 Missed vaccination due to patient refusal 10/08/2023 Has a number of non-scientific based beliefs which interfere with his understanding and acceptance of the medical benefit of vaccination. Nonrheumatic aortic valve stenosis 10/08/2023 Paroxysmal A-fib ([facility]) ([facility]) 08/18/2023 Tobacco abuse 10/08/2023 Nephrology Progress Note [...] from the original note were not included. [facility] - Infectious Diseases Attending Progress [...] palpable masses, hernia : no CVAT. No pyane Neurologic: wnl Skin: No rashes Psychiatry: alert [...] Total Energy Requirements (kcals/day): 30-35 kcal/kg = 8135-8296 kcal Weight Used for Protein Requirements: Current [...] lb) (08/28/24) % Weight Change (Calculated): -34.6 [place] Body Weight (lbs) (Calculated): 166 lbs [place] Body Weight (Kg) (Calculated): 75 kg % [place] Body Weight (Calculated): 81.1 % BMI (kg/m2) [...] to determine Glenys Juares RD, LD Contact: [phone] Images from the original note were not included. PHYSICAL THERAPY [facility] Name/MRN: Jair Snyder ([id number]) Date: 02/27/2025 Request for "see today" note, [...] Anthony Black, PT Hospitalist Progress Note - [facility] - [employer] ([facility]) 02/27/2025 9:03 AM [phone]: Please page me for patient care issues. [phone]: Please page [facility] Hospitalist - [facility] for any issues. Subjective and Objective: Admit [...] was bright red and it stopped just SANFORIZING MACHINE OPERATOR when in transport. Adult diet Regular Dietary Orders (From admission, onward) Start Ordered 02/21/25 1021 Adult diet Regular Diet effective now Question: Diet type Answer: Regular 02/21/25 1021 I/O last 3 completed shifts: In: 750 (12.3 mL/kg) [P.O.:750] Out: 450 (7.4 mL/kg) [Urine:450 (0.2 mL/kg/hr)] Weight: 60.8 kg @IODETAILS@ @[id number]@ Medications: Continuous Meds[1] Scheduled Meds[2] Recent Labs [...] "CHOL" No results found for: "PHART", "PO2ART", "[id number]" Recent Labs 02/25/25 0028 02/25/25 2345 02/27/25 [...] DO Division of Hospitalist Medicine Inpatient Medical Services/[facility] [1] heparin, 5-30 Units/kg/hr, Last Rate: 18 Units/kg/hr (02/27/25 0722) [2] B complex-vitamin C-folic acid, 1 capsule, Oral, Daily metoprolol tartrate, 25 mg, Oral, BID pantoprazole, 40 mg, Oral, qAM AC piperacillin-tazobactam, 4,500 mg, IntraVENous, q8h QUEtiapine, 25 mg, Oral, Nightly sevelamer carbonate, 800 mg, Oral, TID WC warfarin, 2 mg, Oral, Once [facility] Anticoagulation Management Service ([facility]) Inpatient Warfarin Consult HPI: Jun Snyder is a 59 y.o. male admitted on 02/20/2025 for Hemoptysis [R04.2]. Medical History[1] Patient is on warfarin for mechanical AVR and has a goal INR 2.0 - 3.0. Patient was referred to [facility], but so far has been managed at facilities, most recently [facility]. Pt's home dose of warfarin is [...] RPh [facility] Consult Service is available daily [phone] via [employer] Secure Chat. [1] Past Medical History: Diagnosis Date Acute renal failure (ARF) ([facility]) 10/19/2019 Anemia 12/30/2021 Calcification of abdominal aorta ([facility]) 10/08/202309/[address] abd Diverticulosis 10/08/2023 ESRD on hemodialysis ([facility] ([facility]) 10/26/2019 Hemodialysis patient ([facility] ([facility]) HTN (hypertension) 12/01/2022 Hypertension IgA nephropathy IgA nephropathy determined by biopsy of kidney 10/26/2019 Missed vaccination due to patient refusal 10/08/2023 Has a number of non-scientific based beliefs which interfere with his understanding and acceptance of the medical benefit of vaccination. Nonrheumatic aortic valve stenosis 10/08/2023 Paroxysmal A-fib ([facility]) ([facility]) 08/18/2023 Tobacco abuse 10/08/2023 Images from the original note were not included. OCCUPATIONAL THERAPY [facility] Initial Evaluation Name/MRN: Jair Snyder ([id number]) Evaluation Date: 02/26/2025 Date of : 1965 Admission Date: 02/20/2025 5:41 PM Age: 59 y.o. Room/Bed: [facility] A Discharge Recommendation: Retirement Facility Assessment IMPRESSION: Pt would benefit from [...] Problem List Diagnosis Date Noted Severe malnutrition ([facility]) ([facility]) 02/21/2025 Hemoptysis 02/20/2025 Complication of tracheostomy ([facility] ([facility]) 01/19/2025 director long term care (current) use of antibiotics 01/12/2025 Acute respiratory failure with hypoxia ([facility]) [J96.01] 01/08/2025 Tracheostomy care ([facility]) [Z43.0] 01/08/2025 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[facility]) 01/08/2025 Sacral osteomyelitis ([facility]) ([facility]) 01/03/2025 Pneumonia of both lungs due to methicillin susceptible Staphylococcus aureus (MSSA) ([facility]) 01/01/2025 Leukocytosis 12/30/2024 Decubitus ulcer of sacral region, unstageable ([facility]) 12/30/2024 Peritonitis due to fungus ([facility]) 11/30/2024 History of abdominal surgery 11/30/2024 Leg DVT (deep venous thromboembolism), acute, left ([facility]) 11/30/2024 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, 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 of skin ([facility]) 11/30/2024 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 Pleural effusion 11/28/2024 Gastric ulceration 2024 Atrial flutter, unspecified type ([facility]) 10/03/2024 RSV (acute bronchiolitis due to respiratory syncytial virus) 10/03/2024 Diverticulosis 10/08/2023 Nonrheumatic aortic valve stenosis 10/08/2023 Calcification of abdominal aorta ([facility]) 10/08/2023 Missed vaccination due to patient refusal 10/08/2023 Tobacco abuse 10/08/2023 Alcohol use disorder in remission 10/08/2023 Paroxysmal A-fib ([facility]) ([facility]) 08/18/2023 HTN (hypertension) 12/01/2022 ESRD on hemodialysis ([facility]) ([facility]) 10/26/2019 IgA nephropathy determined by biopsy of [...] of Care supervision is transferred to a [facility] Therapy Services Occupational Therapist. Goals and/or treatment plan was established in collaboration with patient/family/other representatives. Ro Sales MS, OTR/L [1] Past Medical History: Diagnosis Date Acute renal failure (ARF) ([facility]) 10/19/2019 Anemia 12/30/2021 Calcification of abdominal aorta ([facility]) 10/08/202309/[address] abd Diverticulosis 10/08/2023 ESRD on hemodialysis ([facility] ([facility]) 10/26/2019 Hemodialysis patient ([facility] ([facility]) HTN (hypertension) 12/01/2022 Hypertension IgA nephropathy IgA nephropathy determined by biopsy of kidney 10/26/2019 Missed vaccination due to patient refusal 10/08/2023 Has a number of non-scientific based beliefs which interfere with his understanding and acceptance of the medical benefit of vaccination. Nonrheumatic aortic valve stenosis 10/08/2023 Paroxysmal A-fib ([facility]) ([facility]) 08/18/2023 Tobacco abuse 10/08/2023 [2] Past Surgical History: Procedure Laterality Date APPENDECTOMY CARDIAC CATHETERIZATION N/A 10/09/2024 Performed by Bob Watson MD at [facility] Cardiac Cath/EP Lab CARDIAC CATHETERIZATION Bilateral 11/01/2024 Performed by Bob Watson MD at [facility] Cardiac Cath/EP Lab CARDIAC CATHETERIZATION N/A 11/01/2024 Performed by Bob Watson MD at [facility] Cardiac Cath/EP Lab COLONOSCOPY N/A 01/24/2025 Performed by Chadd Davis MD at [facility] ENDOSCOPY FISTULAGRAM (HISTORICAL) Left 09/15/2021 LEFT UPPER ARM HX AV FISTULA CREATION IR EMBOLIZATION 10/14/2024 IR EMBOLIZATION 10/14/2024 [facility] SPECIAL PROCEDURES IR FISTULAGRAM 08/07/2022 IR FISTULAGRAM 08/07/2022 [facility] IR IMAGING TONSILLECTOMY (HISTORICAL) Hospitalist [...] bilateral pleural effusions. 5. Cholelithiasis, and diminutive [place] kidneys. Seen by pulm service Started on [...] controlled No CP Adult diet Regular @IODETAILS@ @[id number]@ Medications: Continuous Meds[1] Scheduled Meds[2] Recent Labs [...] coumadin -- [facility]/OT Will [...] with any questions or concerns Bree Molina MAKEUP SALES CONSULTANT HAND I BLOCKER A-G TELECINE OPERATOR [facility] [phone] Pt seen and examined independently by me. I reviewed with, MAKEUP SALES CONSULTANT-HAND I BLOCKER the medical history and the findings on physical examination. I discussed the patient s diagnosis and concur with the treatment plan as documented in his note. Please call [phone] or message me through Hitch Radio with any questions or concerns. PULMONOLOGY CONSULT [...] from the original note were not included. [facility] Wound Care/NPWT Progress Note Jun Snyder [...] for pain with pain medication, per staff nurse icu resource team, prior to wound VAC dressing change. Wet [...] apply Betadine and allow to dry, leave INFANTRY ASSAULTMAN daily and PRN Right wrist Abrasion: -cleanse with antibacterial soap/water, leave INFANTRY ASSAULTMAN daily Sacral Stage 4 pressure injury (POA): [...] to follow Recommend to follow up at [facility] wound care center after hospital discharge. [...] Diagnosis Date Acute renal failure (ARF) ([facility]) 10/19/2019 Anemia 12/30/2021 Calcification of abdominal aorta ([facility]) 10/08/202309/[address] abd Diverticulosis 10/08/2023 ESRD on hemodialysis ([facility]) ([facility]) 10/26/2019 Hemodialysis patient ([facility]) ([facility]) HTN (hypertension) 12/01/2022 Hypertension IgA nephropathy IgA nephropathy determined by biopsy of kidney 10/26/2019 Missed vaccination due to patient refusal 10/08/2023 Has a number of non-scientific based beliefs which interfere with his understanding and acceptance of the medical benefit of vaccination. Nonrheumatic aortic valve stenosis 10/08/2023 Paroxysmal A-fib ([facility]) ([facility]) 08/18/2023 Tobacco abuse 10/08/2023 [2] Past Surgical History: Procedure Laterality Date APPENDECTOMY CARDIAC CATHETERIZATION N/A 10/09/2024 Performed by Bob Watson MD at [facility] Cardiac Cath/EP Lab CARDIAC CATHETERIZATION Bilateral 11/01/2024 Performed by Bob Watson MD at [facility] Cardiac Cath/EP Lab CARDIAC CATHETERIZATION N/A 11/01/2024 Performed by Bob Watson MD at [facility] Cardiac Cath/EP Lab COLONOSCOPY N/A 01/24/2025 Performed by Chadd Davis MD at [facility] ENDOSCOPY FISTULAGRAM (HISTORICAL) Left 09/15/2021 LEFT UPPER ARM HX AV FISTULA CREATION IR EMBOLIZATION 10/14/2024 IR EMBOLIZATION 10/14/2024 [facility] SPECIAL PROCEDURES IR FISTULAGRAM 08/07/2022 IR [...] needed (PRN constipation). [DISCONTINUED] epoetin rowan-epbx (Retacrit) 78800 UNIT/ML injection Inject 0.79 mL (7,900 Units) under the skin 1 (one) time per week. (Patient not taking: Reported on 02/21/2025) [DISCONTINUED] pantoprazole (ProtoNix) 40 MG injection Infuse 40 mg into a venous catheter 2 times daily. Cosigned by Ahsan Gill DO at 02/26/2025 4:59 PM EDT [facility] Anticoagulation Management Service ([facility]) Inpatient Warfarin Consult HPI: Jun Snyder is a 59 y.o. male admitted on 02/20/2025 for Hemoptysis [R04.2]. Medical History[1] Patient is on warfarin for mechanical AVR and has a goal INR 2.0 - 3.0. Patient was referred to [facility], but so far has been managed at facilities, most recently [facility]. Pt's home dose of warfarin is [...] over when discharged from facility. Fatuma Odonnell [facility] Consult Service is available daily [phone] via Hitch Radio Secure Chat. [1] Past Medical History: Diagnosis Date Acute renal failure (ARF) ([facility]) 10/19/2019 Anemia 12/30/2021 Calcification of abdominal aorta ([facility]) 10/08/202309/[address] abd Diverticulosis 10/08/2023 ESRD on hemodialysis ([facility]) (HCC) 10/26/2019 Hemodialysis patient ([facility]) ([facility]) HTN (hypertension) 12/01/2022 Hypertension IgA nephropathy IgA nephropathy determined by biopsy of kidney 10/26/2019 Missed vaccination due to patient refusal 10/08/2023 Has a number of non-scientific based beliefs which interfere with his understanding and acceptance of the medical benefit of vaccination. Nonrheumatic aortic valve stenosis 10/08/2023 Paroxysmal A-fib ([facility]) ([facility]) 08/18/2023 Tobacco abuse 10/08/2023 Nephrology Progress Note [...] original note were not included. PHYSICAL THERAPY [facility] Initial Evaluation Name/MRN: Jair Snyder ([id number]) Evaluation Date: 02/25/2025 Date of : 1965 Admission Date: 02/20/2025 5:41 PM Age: 59 y.o. Room/Bed: [facility] A Discharge Recommendation: [facility] Facility Equipment Needed: No Assessment IMPRESSION: Patient [...] Diagnosis Date Noted Hemoptysis 02/20/2025 Severe malnutrition ([facility]) ([facility]) 01/19/2025 Complication of tracheostomy ([facility]) ([facility]) 01/19/2025 director long term care (current) use of antibiotics 01/12/2025 Acute respiratory failure with hypoxia ([facility]) [J96.01] 01/08/2025 Tracheostomy care ([facility]) [Z43.0] 01/08/2025 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[facility]) 01/08/2025 Sacral osteomyelitis ([facility]) ([facility]) 01/03/2025 Pneumonia of both lungs due to methicillin susceptible Staphylococcus aureus (MSSA) ([facility]) 01/01/2025 Leukocytosis 12/30/2024 Decubitus ulcer of sacral region, unstageable ([facility]) 12/30/2024 Peritonitis due to fungus ([facility]) 11/30/2024 History of abdominal surgery 11/30/2024 Leg DVT (deep venous thromboembolism), acute, left ([facility]) 11/30/2024 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, 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 of skin ([facility]) 11/30/2024 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 Pleural effusion 11/28/2024 Gastric ulceration 2024 Atrial flutter, unspecified type ([facility]) 10/03/2024 RSV (acute bronchiolitis due to respiratory syncytial virus) 10/03/2024 Diverticulosis 10/08/2023 Nonrheumatic aortic valve stenosis 10/08/2023 Calcification of abdominal aorta ([facility]) 10/08/2023 Missed vaccination due to patient refusal 10/08/2023 Tobacco abuse 10/08/2023 Alcohol use disorder in remission 10/08/2023 Paroxysmal A-fib ([facility]) ([facility]) 08/18/2023 HTN (hypertension) 12/01/2022 ESRD on hemodialysis ([facility]) ([facility]) 10/26/2019 IgA nephropathy determined by biopsy of kidney 10/26/2019 BRBPR (bright red blood per rectum) 01/19/2025 Aortic stenosis 10/03/2024 Upper GI bleed 10/03/2024 S/P AVR 10/03/2024 Acute hypoxic respiratory failure ([facility]) 10/03/2024 Acute encephalopathy 10/03/2024 Pneumoperitoneum 10/03/2024 Anemia [...] of Care supervision is transferred to a [facility] Therapy Services Physical Therapist. Goals and/or treatment plan was established in collaboration with patient/family/other representatives. [1] Past Medical History: Diagnosis Date Acute renal failure (ARF) (HCC) 10/19/2019 Anemia 12/30/2021 Calcification of abdominal aorta (HCC) 10/08/202309/[address] abd Diverticulosis 10/08/2023 ESRD on hemodialysis ([facility]) ([facility]) 10/26/2019 Hemodialysis patient ([facility]) ([facility]) HTN (hypertension) 12/01/2022 Hypertension IgA nephropathy IgA nephropathy determined by biopsy of kidney 10/26/2019 Missed vaccination due to patient refusal 10/08/2023 Has a number of non-scientific based beliefs which interfere with his understanding and acceptance of the medical benefit of vaccination. Nonrheumatic aortic valve stenosis 10/08/2023 Paroxysmal A-fib ([facility]) ([facility]) 08/18/2023 Tobacco abuse 10/08/2023 [2] Past Surgical History: Procedure Laterality Date APPENDECTOMY CARDIAC CATHETERIZATION N/A 10/09/2024 Performed by Bob Watson MD at [facility] Cardiac Cath/EP Lab CARDIAC CATHETERIZATION Bilateral 11/01/2024 Performed by Bob Watson MD at [facility] Cardiac Cath/EP Lab CARDIAC CATHETERIZATION N/A 11/01/2024 Performed by Bob Watson MD at [facility] Cardiac Cath/EP Lab COLONOSCOPY N/A 01/24/2025 Performed by Chadd Davis MD at [facility] ENDOSCOPY FISTULAGRAM (HISTORICAL) Left 09/15/2021 LEFT UPPER ARM HX AV FISTULA CREATION IR EMBOLIZATION 10/14/2024 IR EMBOLIZATION 10/14/2024 [facility] SPECIAL PROCEDURES IR FISTULAGRAM 08/07/2022 IR FISTULAGRAM 08/07/2022 [facility] IR IMAGING TONSILLECTOMY (HISTORICAL) Hospitalist [...] bilateral pleural effusions. 5. Cholelithiasis, and diminutive [place] kidneys. Seen by pulm service Started on IV abx Started on heparin gtt as well Interval History: pt feels ok Some dizziness at times No more bleeding issues 02/23 Pt awake Reports his PEG is uncomfortable-- wants removed if able No CP 02/24 Pt awake Some cough at times Sob better 02/25 Pt awake No sob today No CP Adult diet Regular @IODETAILS@ @[email or web address]@ Medications: Continuous Meds[1] Scheduled Meds[2] Recent Labs [...] TID WC warfarin, 1.5 mg, Oral, Once [facility] Anticoagulation Management Service ([facility]) Inpatient Warfarin Consult HPI: Jun Snyder is a 59 y.o. male admitted on 02/20/2025 for Hemoptysis [R04.2]. Medical History[1] Patient is on warfarin for mechanical AVR and has a goal INR 2.0 - 3.0. Patient was referred to [facility], but so far has been managed at facilities, most recently [facility]. Pt's home dose of warfarin is [...] PharmD [facility] Consult Service is available daily [phone] via [employer] Secure Chat. [1] Past Medical History: Diagnosis Date Acute renal failure (ARF) ([facility]) 10/19/2019 Anemia 12/30/2021 Calcification of abdominal aorta ([facility]) 10/08/202309/[address] abd Diverticulosis 10/08/2023 ESRD on hemodialysis ([facility]) ([facility]) 10/26/2019 Hemodialysis patient ([facility]) ([facility]) HTN (hypertension) 12/01/2022 Hypertension IgA nephropathy IgA nephropathy determined by biopsy of kidney 10/26/2019 Missed vaccination due to patient refusal 10/08/2023 Has a number of non-scientific based beliefs which interfere with his understanding and acceptance of the medical benefit of vaccination. Nonrheumatic aortic valve stenosis 10/08/2023 Paroxysmal A-fib ([facility]) ([facility]) 08/18/2023 Tobacco abuse 10/08/2023 Vancomycin therapy has been discontinued by Hussain Quintana on 02/24. Thank you for the consult. Pharmacy signing off for vancomycin dosing. Marissa Iglesias PharmD, Date: 02/24/25 Time: 4:08 PM Images from the original note were not included. [facility] - Infectious Diseases Attending [...] [phone] Recent Labs 02/22/25 0100 02/23/25 003 NA [...] AM Subjective: Admit Date: 02/20/2025 PCP: Leilani Gomezsofía Ramirez is a 59 y.o. male with [...] bilateral pleural effusions. 5. Cholelithiasis, and diminutive [place] kidneys. Seen by pulm service Started on IV abx Started on heparin gtt as well Interval History: pt feels ok Some dizziness at times No more bleeding issues 02/23 Pt awake Reports his PEG is uncomfortable-- wants removed if able No CP 02/24 Pt awake Some cough at times Sob better Adult diet Regular @IODETAILS@ @[email or web address]@ Medications: Continuous Meds[1] Scheduled Meds[2] Recent Labs [...] for: "TRIG", "HDL", "LDLCALC", "CHOL" Recent Labs 02/22/259902/23/253102/24/25 001 INR 1.4* 1.3* 1.3* No results for [...] intermittent dosing (placeholder), , Other, RX Placeholder [facility] Anticoagulation Management Service ([facility]) Inpatient Warfarin Consult HPI: Jun Snyder is a 59 y.o. male admitted on 02/20/2025 for Hemoptysis [R04.2]. Medical History[1] Patient is on warfarin for mechanical AVR and has a goal INR 2.0 - 3.0. Patient was referred to [facility], but so far has been managed at facilities, most recently [facility]. Pt's home dose of warfarin is [...] PharmD [facility] Consult Service is available daily [phone] via Hitch [employer] Secure sarvaMAIL. [1] Past Medical History: Diagnosis Date Acute renal failure (ARF) ([facility]) 10/19/2019 Anemia 12/30/2021 Calcification of abdominal aorta ([facility]) 10/08/202309/[address] abd Diverticulosis 10/08/2023 ESRD on hemodialysis ([facility]) ([facility]) 10/26/2019 Hemodialysis patient ([facility]) ([facility]) HTN (hypertension) 12/01/2022 Hypertension IgA nephropathy IgA nephropathy determined by biopsy of kidney 10/26/2019 Missed vaccination due to patient refusal 10/08/2023 Has a number of non-scientific based beliefs which interfere with his understanding and acceptance of the medical benefit of vaccination. Nonrheumatic aortic valve stenosis 10/08/2023 Paroxysmal A-fib ([facility]) ([facility]) 08/18/2023 Tobacco abuse 10/08/2023 Images from the original note were not included. [facility] - Infectious Diseases Attending Progress [...] necrotic Lines: sites clean Labs: Recent Labs 02/21/255202/22/25 0100 02/23/25 0032 NA [...] from the original note were not included. [facility], Pulmonary Medicine [phone] PULMONARY PROGRESS NOTE. Patient - Jun Snyder, [...] PM EDT I have personally performed a svvp-dq-[id number] diagnostic evaluation on this patient on date of service 02/23/25. History, labs, imaging studies, and electronic medical record have been reviewed by me. This note documented by the [x]linen room houseperson []ARMIN reflects my history, exam, and medical [...] weekend. Please reach out with any concerns [facility] Anticoagulation Management Service ([facility]) Inpatient Warfarin Consult HPI: Jun Snyder is a 59 y.o. male admitted on 02/20/2025 for Hemoptysis [R04.2]. Medical History[1] Patient is on warfarin for mechanical AVR and has a goal INR 2.0 - 3.0. Patient was referred to [facility], but so far has been managed at facilities, most recently [facility]. Pt's home dose of warfarin is [...] PharmD [facility] Consult Service is available daily [phone] via Hitch [employer] Secure Chat. [1] Past Medical History: Diagnosis Date Acute renal failure (ARF) ([facility]) 10/19/2019 Anemia 12/30/2021 Calcification of abdominal aorta ([facility]) 10/08/202309/[address] abd Diverticulosis 10/08/2023 ESRD on hemodialysis ([facility]) ([facility]) 10/26/2019 Hemodialysis patient ([facility] ([facility]) HTN (hypertension) 12/01/2022 Hypertension IgA nephropathy IgA nephropathy determined by biopsy of kidney 10/26/2019 Missed vaccination due to patient refusal 10/08/2023 Has a number of non-scientific based beliefs which interfere with his understanding and acceptance of the medical benefit of vaccination. Nonrheumatic aortic valve stenosis 10/08/2023 Paroxysmal A-fib ([facility]) ([facility]) 08/18/2023 Tobacco abuse 10/08/2023 Hospitalist Progress Note [...] bilateral pleural effusions. 5. Cholelithiasis, and diminutive [place] kidneys. Seen by pulm service Started on IV abx Started on heparin gtt as well Interval History: pt feels ok Some dizziness at times No more bleeding issues 02/23 Pt awake Reports his PEG is uncomfortable-- wants removed if able No CP Adult diet Regular @IODETAILS@ @[email or web address]@ Medications: Continuous Meds[1] Scheduled Meds[2] Recent Labs 02/21/255202/22/259902/23/25 003 WBC 7.0 9.0 8.6 HGB 8.3* 7.8* 8.6* PLT 316 282 316 Recent Labs 02/21/255202/22/259902/23/25 0032 NA 131* 132* 135* K 3.1* 3.4* 4.1 CL 91* 94* 99 CO2 BUN 29* 36* 21 CREATININE 2.89* 3.99* 2.78* GLUCOSE 74 121* 110* Recent Labs 02/21/255202/22/259902/23/25 0032 AST 39* 35* 37* ALT 8 9 10 BILITOT 0.8 0.6 0.6 ALKPHOS 120 120 136 No results found for: "TRIG", "HDL", "LDLCALC", "CHOL" Recent Labs 02/20/25 1825 02/22/259902/23/25 0032 INR 1.4* 1.4* 1.3* No results [...] from the original note were not included. [facility] Wound Care/NPWT Progress Note Jun Snyder [...] pain with PO pain medication, per staff nurse icu resource team, prior to wound VAC dressing change. Wet [...] apply Betadine and allow to dry, leave INFANTRY ASSAULTMAN daily and PRN Right wrist Abrasion: -cleanse [...] to follow Recommend to follow up at [facility] Outpatient wound care center after hospital discharge. [...] CT abd Diverticulosis 10/08/2023 ESRD on hemodialysis ([facility]) ([facility]) 10/26/2019 Hemodialysis patient ([facility] ([facility]) HTN (hypertension) 12/01/2022 Hypertension IgA nephropathy IgA nephropathy determined by biopsy of kidney 10/26/2019 Missed vaccination due to patient refusal 10/08/2023 Has a number of non-scientific based beliefs which interfere with his understanding and acceptance of the medical benefit of vaccination. Nonrheumatic aortic valve stenosis 10/08/2023 Paroxysmal A-fib ([facility]) ([facility]) 08/18/2023 Tobacco abuse 10/08/2023 [2] Past Surgical History: Procedure Laterality Date APPENDECTOMY CARDIAC CATHETERIZATION N/A 10/09/2024 Performed by Bob Watson MD at [facility] Cardiac Cath/EP Lab CARDIAC CATHETERIZATION Bilateral 11/01/2024 Performed by Bob Watson MD at [facility] Cardiac Cath/EP Lab CARDIAC CATHETERIZATION N/A 11/01/2024 Performed by Bbo Watson MD at [facility] Cardiac Cath/EP Lab COLONOSCOPY N/A 01/24/2025 Performed by Chadd Davis MD at [facility] ENDOSCOPY FISTULAGRAM (HISTORICAL) Left 09/15/2021 LEFT UPPER ARM HX AV FISTULA CREATION IR EMBOLIZATION 10/14/2024 IR EMBOLIZATION 10/14/2024 [facility] SPECIAL PROCEDURES IR FISTULAGRAM 08/07/2022 IR [...] needed (PRN constipation). [DISCONTINUED] epoetin rowan-epbx (Retacrit) 97183 UNIT/ML injection Inject 0.79 mL (7,900 Units) [...] any questions or concerns Bree Molina APRN HAND I BLOCKER A-G TELECINE OPERATOR [facility] [phone] Pt seen and examined independently by me. I reviewed with DENIA-HAND I BLOCKER the medical history and the findings on physical examination. I discussed the patient s diagnosis and concur with the treatment plan as documented in his note. Please call [phone] or message me through Hitch Radio with any questions or concerns. Pharmacy Managed [...] [] CrCl ml/min (Cockcroft-Gault, if BLOSSOM, no MILITARY SCIENCE TEACHER) Infectious Diagnosis: Pneumonia (target level = 15-20 [...] questions. Date: 02/22/25 Time: 4:36 PM Daryn Babcock PharmD (available on HaiWeavedu) Images from the original note were not included. [facility], Pulmonary Medicine [phone] PULMONARY PROGRESS NOTE. Patient - Jun Snyder, Age - 59 y.o. - 1965 Room Number - W3-334/[id number] A Consulting - Ramón Romano MD Primary Care Physician - Leilani Troncoso [facility] # - [id number] Date of Admission - 02/20/2025 5:41 PM [...] CBC: Recent Labs 02/20/25 1825 02/21/25 0053 02/22/25 0100 WBC 9.4 7.0 9.0 HGB 8.7* 8.3* 7.8* HCT 26.8* 25.7* 24.5* PLT 312 316 282 BMP: Recent Labs 02/20/25 1825 02/21/25 0053 02/22/25 0100 NA 133* 131* 132* K 3.1* 3.1* 3.4* CL 92* 91* 94* CO2 BUN 29* 29* 36* CREATININE 2.57* 2.89* 3.99* GLUCOSE 80 74 121* CALCIUM 9.6 9.3 9.2 MG -- 2.2 2.2 PHOS -- 2.0* 3.2 HEPATIC: Recent Labs 02/21/25 0053 02/22/25 0100 AST 39* 35* ALT 8 [...] PM EDT I have personally performed a [id number] diagnostic evaluation on this patient on date of service 02/22/2025. History, labs, imaging studies, and electronic medical record have been reviewed by me. This note documented by the [x]linen room houseperson []ARMIN reflects my history, exam, and medical [...] bilateral pleural effusions. 5. Cholelithiasis, and dimin[place] kidneys. Seen by pulm service Started on IV abx Started on heparin gtt as well Interval History: pt feels ok Some dizziness at times No more bleeding issues Adult diet Regular @IODETAILS@ @[email or web address]@ Medications: Continuous Meds[1] Scheduled Meds[2] Recent Labs 02/20/25182402/21/255202/22/25 0100 WBC 9.4 7.0 9.0 HGB 8.7* 8.3* 7.8* PLT 312 316 282 Recent Labs 02/20/25182402/21/253 [...] "CHOL" Recent Labs 02/20/25 1825 02/22/25 0100 INR 1.4* 1.4* No results for [...] original note were not included. OCCUPATIONAL THERAPY [facility] Name/MRN: Jair Snyder ([id number]) Date: 02/22/2025 PT refusing to participate in [...] lower extremity edema Data: Labs: Recent Labs 02/20/25 1825 02/21/25 0053 02/22/25 0100 WBC 9.4 7.0 9.0 HGB 8.7* 8.3* 7.8* HCT 26.8* 25.7* 24.5* MCV 88.4 89.9 91.1 PLT 312 316 282 Recent Labs 02/20/25 1825 02/21/25 0053 02/22/25 0100 NA 133* 131* 132* [...] any questions or concerns Bree Molina APRN HAND I BLOCKER A-G TELECINE OPERATOR [facility] [phone] Pt seen and examined independently by me. I reviewed with MAKEUP SALES CONSULTANT-HAND I BLOCKER the medical history and the findings on physical examination. I discussed the patient s diagnosis and concur with the treatment plan as documented in his note. Please call [phone] or message me through Hitch Radio with any questions or concerns. Images from the original note were not included. PHYSICAL THERAPY [facility] Name/MRN: Jair Snyder ([id number]) Date: 02/22/2025 Pt declined to work with therapy at this time, stating he wants to wait until after the wound vac is put on. Will reattempt at a later date. Sangeeta Sarabia PT Images from the original note were not included. PHYSICAL THERAPY [facility] Name/MRN: Jair Snyder ([id number]) Date: 02/21/2025 Pt declined to work with [...] Time 17 min documented in this encounter [facility] 03-05-2025 Miscellaneous Notes Formattin g of this note might be different from the original. Auth is now pending with [facility] for [facility] [place]. Auth ID: [id number] . The insurance needs PT and OT notes- as PT note yesterday incomplete , they are both requested . Confirmed pickup time of 4:00pm on 03/05/25 by transport [employer] at phone number [phone]. Location of facility drop off is [facility]. Facility notified via [employer], TCC notified on secure chat. [facility]. Tcc requested transport to be set up at 4 PM to permit auth to be ongoing- facility can accept- just requested it be started today - paint spraying machine operator helper notified, and discharge orders faxed, will confirm in secure chat the time and notify the tx team , orders in epic , rosendo done, return to [facility] . TCC requested OT notes this am - for ongoing auth - PT INR is now good 1.8 , notified facility want to send today , auth was only good thru 03/02 notified INSOLE STIFFENER to confirm about auth requirements again today .. Transport in will call, wound VAC to go with patient, discharge orders in [facility] , LIVES at facility LTC - the facility wants to skill- tcc is working with them to have him discharge later today - transport in will call . Tie Buyer notified to send orders and med rec to [facility] Problem: Knowledge Deficit Goal: Patient/family/caregiver demonstrates [...] Note DC plan is return to ECF/SNF- [facility], no auth needed to return however facility [...] Progress Note 03/03/25 1025 Rapid Rounds Attendance Welder Setter Electron Beam Machine Planned Discharge Disposition Snf ([facility]- return, is LTC no AUTH needed) Today we still await Other (INR >or = 1.8 per SAILAJA) Clinical stability Attending completion of discharge workflow Additional Comments: We have a skilled AUTH that expires midnight tonight, however facility will still accept without AUTH per previous CM notes This Welder Setter Electron Beam Machine was tasked to follow this patient through the weekend. Chart and Careport were reviewed. INR this am is 1.6, subtherapeutic. Facility updated. Transportation is in will call. hospice clinical manager will continue to follow for transitional [...] med list and updated notes transmitted to [facility]- [facility] via Careport per TCC request. Per epic [...] need labs post at [facility] to follow . Tie Buyer tasked to send wound vac and clinicals- requested PT/OT notes for ongoing auth . Rosendo done- transport in will call to return to [facility] where he lives facility did want to [...] Roundtrip in will call per TCC. Tasked INSOLE STIFFENER to set up transport in will call, [...] therapy to start auth for [facility]. Continues on IV antibiotics. On a heparin gtt. SMS following to change to Coumadin. INR 13 today. Plan is to return to [facility]. . Length of Stay (Days): 7 GMLOS: [...] therapy notes. Want to skill him at [facility]. Started on IV antibiotics for aspiration pneumonia. Continues on a heparin gtt. . Updated notes sent to [facility] via [facility]port per [facility] request. Await review and response regarding [...] pressure injuries/wounds this shift so RN SHAQ [facility] would prefer to SKILL patient- LTC. + bedhold will return - has woundVAC and ivab on hep , not ready for discharge . Rosendo need [...] Interventions Goal: Promote nutritional intake Outcome: Progressing [facility] would prefer to SKILL patient- LTC. + bedhold will return - has woundVAC and ivab on hep gtt, not ready for discharge , [facility] tasked to send clinicals facility is updated . [facility] request. Await review and response regarding [...] intake Outcome: Not Progressing Has dialysis at [facility], [facility].. Pt came to ER from dialysis due to hemoptysis. Had a trach removed 01/19. He is a bed hold at [facility]. They would like to skill him if able. Unable to tell me where he went to dialysis this am, asking facility. Referral placed to [facility] via [facility]port per TCC request. [...] of blood components. documented in this encounter [facility] 03-05-2025 Note [facility] 03-05-2025 Hospital course Narrative Images from the original note were not included. Hospitalist Discharge Summary - [facility] - [facility] ([facility]) Jun Snyder : 1965 Admit date: 02/20/2025 Discharge date: 03/05/2025 Admitting Physician: Bettye Pierre MD Primary Care Physician: Leilani Troncoso Recommended Follow-up: [facility]ound [facility]omy [address] [facility] [address] [place] [facility] [address] [place] [address] [facility] [address] Call Call and schedule appointment [...] "CHOL" No results found for: "PHART", "PO2ART", "CHM3YEU" Recent Labs 03/04/25 0156 03/04/25 0946 03/05/25 0343 INR 1.5* 1.6* 1.8* No results for input(s): "DDIMER" in the last 72 hours. No results found for: "HGBA1C" No results found for: "TSH" Urine Culture: No results found for this or any previous visit. Imaging: CTA chest angiogram w and/or wo IV contrast Result Date: 02/20/2025 Patient Name: JUN SNYDER : 1965 [facility]#: [id number] Exam Date/Time: 02/20/2025 19:01 Procedure: CT CHEST [...] bilateral pleural effusions. 5. Cholelithiasis, and [place] kidneys. Report Dictated on Electronically Signed By: [...] Your Medications These medications were sent to [facility] [address] [place] [address] [address] [facility] [address] [facility] [address] metoprolol tartrate 25 MG tablet pantoprazole 40 MG EC tablet QUEtiapine 25 MG tablet sevelamer carbonate 800 MG tablet You can get these medications from any pharmacy Bring a paper prescription for each of these medications oxyCODONE 5 MG immediate release tablet Signed: Anthony Hurtado DO 03/05/2025, 9:30 AM documented in this encounter [facility] 03-03-2025 Nurse Note Patient Name: Jun Snyder Patient : 1965 Acct: [id number] Date of Admission: 02/20/2025 Room/Bed: [facility] A Code Status: Full Code Allergies: Allergies[1] [...] 0230 HCT 27.8 (L) 03/03/2025211 PLT 397 03/03/2025 021 NA 140 03/03/2025211 K 6.2 (HH) 03/03/2025211 CL 101 03/03/2025 021 CO2 28 03/03/2025211 BUN 26 (H) 03/03/2025211 CREATININE 3.21 (H) 03/03/2025211 CREATININE 9.99 (H) 10/27/2019 0545 CALCIUM 9.8 03/03/2025211 PHOS 2.6 02/23/2025 0032 IV Drips and Rate/Dose Continuous Meds[3] Safety - Before each treatment: Dialysis Machine No.: [id number] RO Machine Number: [id number] Dialyzer Lot No.: [id number] Tubing Lot Number: [id number] All Connections Secure: Yes Venous Parameters Set: Yes Arterial Parameters Set: Yes NS Bag: Yes Saline Line Double Clamped: Yes Dialyzer: Nipro Prime Volume (mL): 200 mL RO Machine Number: [id number] RO Machine Log Sheet Completed: Yes Machine Alarm Self Test: Completed, Passed (03/03/25 0740) Air Foam Detector: Tested, Proper Function, pH Reading Extracorporeal Circuit Tested for Integrity: Yes Machine Conductivity: 13.7 Manual Conductivity: 13.6 Manual Ph: 7 Bleach Test (Neg): Yes Bath Temperature: 36 C (96.8 F) Conductivity Meter Serial #: [id number] Machine Functioning Alarm Free? Yes Dialysis Bath: K+ (Potassium): 2 Ca+ (Calcium): 2.5 Na+ (Sodium): 137 HCO3 (Bicarb): 35 Bicarbonate Concentrate Lot No.: [id number] Acid Concentrate Lot No.: [id number] Chlorine Testing - Before each treatment and [...] mmHg 90 600 Yes pt resting, removed 192603/03/25 1215 350 mL/min 830 ml/hr -70 mmHg 170 mmHg 80 600 Yes pt sleeping, removed 214303/03/25 1230 350 mL/min 40207 ml/hr -70 mmHg 170 mmHg 80 600 [...] troponins done overnight) Provider Name: Dr. Ramón Romnao Provider Role: Hospitalist Method of Communication: Secure [...] Active Problem List Diagnosis Anemia Paroxysmal A-fib ([facility]) ([facility]) HTN (hypertension) ESRD on hemodialysis ([facility]) ([facility]) IgA nephropathy determined by biopsy of kidney Diverticulosis Nonrheumatic aortic valve stenosis Calcification of abdominal aorta ([facility]) Missed vaccination due to patient refusal Tobacco abuse Alcohol use disorder in remission Atrial flutter, unspecified type ([facility]) RSV (acute bronchiolitis due to respiratory syncytial virus) Aortic stenosis Upper GI bleed S/P AVR Acute hypoxic respiratory failure ([facility]) Acute encephalopathy Pneumoperitoneum Gastric ulceration Severe malnutrition ([facility]) ([facility]) Pleural effusion Peritonitis due to fungus ([facility]) History of abdominal surgery Leg DVT (deep venous thromboembolism), acute, left ([facility]) 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, 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 of skin ([facility]) Tracheostomy dependence ([facility]) Leukocytosis Decubitus ulcer of sacral region, unstageable ([facility]) Pneumonia of both lungs due to methicillin susceptible Staphylococcus aureus (MSSA) ([facility]) Sacral osteomyelitis ([facility]) ([facility]) Acute respiratory failure with hypoxia ([facility]) [J96.01] Tracheostomy care ([facility]) [Z43.0] 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[facility]) director long term care (current) use of antibiotics Complication of tracheostomy ([facility]) ([facility]) BRBPR (bright red blood per rectum) Hemoptysis [3] heparin, 5-30 Units/kg/hr, Last Rate: 20 Units/kg/hr (03/03/25 0707) In patient's chart, d/t patient being on his call light excessively and finally telling me he wants something for pain. Please see eMAR for administration Patient Name: Jun Snyder Patient : 1965 Acct: [id number] Date of Admission: 02/20/2025 Room/Bed: [facility] A Code Status: Full Code Allergies: Allergies[1] [...] WBC 7.5 03/01/2025 0003 HGB 8.0 (L) 03/01/20252 HGB 9.4 11/11/2024 0230 HCT 26.9 (L) 03/01/2025 0003 PLT 306 03/01/2025 0003 NA 138 03/01/2025 0003 K 5.8 (H) 03/01/20252 CL 102 03/01/20252 CO2 23 03/01/20252 BUN 28 (H) 03/01/20252 CREATININE 3.73 (H) 03/01/20252 CREATININE 9.99 (H) 10/27/2019 0545 CALCIUM 9.6 03/01/20252 PHOS 2.6 02/23/2025 0032 IV Drips and Rate/Dose Continuous Meds[3] Safety - Before each treatment: Dialysis Machine No.: [id number] RO Machine Number: [id number] Dialyzer Lot No.: [id number] Tubing Lot Number: [id number] All Connections Secure: Yes Venous Parameters Set: Yes Arterial Parameters Set: Yes NS Bag: Yes Saline Line Double Clamped: Yes Dialyzer: Nipro Prime Volume (mL): 200 mL RO Machine Number: [id number] RO Machine Log Sheet Completed: Yes Machine Alarm Self Test: Completed, Passed (03/01/25 0749) Air Foam Detector: Tested, Proper Function, pH Reading Extracorporeal Circuit Tested for Integrity: Yes Machine Conductivity: 13.6 Manual Conductivity: 13.5 Manual Ph: 7.2 Bleach Test (Neg): Yes Bath Temperature: 36 C (96.8 F) Conductivity Meter Serial #: [id number] Machine Functioning Alarm Free? Yes Dialysis Bath: K+ (Potassium): 3 Ca+ (Calcium): 2.5 Na+ (Sodium): 137 HCO3 (Bicarb): 35 Bicarbonate Concentrate Lot No.: [id number] Acid Concentrate Lot No.: [id number] Chlorine Testing - Before each treatment and [...] Active Problem List Diagnosis Anemia Paroxysmal A-fib ([facility] ([facility]) HTN (hypertension) ESRD on hemodialysis ([facility]) ([facility]) IgA nephropathy determined by biopsy of kidney [...] with hypoxia (HCC) [J96.01] Tracheostomy care ([facility]) [Z43.0] 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HCC) half-way (current) use of antibiotics Complication of tracheostomy [...] the room, and the patients agitation. Nurse electrical construction project manager notified maintenance of the problem, and [...] nurses aides cannot leave the floor to slate picker his packages, and pt was agreeable to this as well. Patient Name: Jun Snyder Patient : 1965 Acct: [id number] Date of Admission: 02/20/2025 Room/Bed: [facility] A Code Status: Full Code Allergies: Allergies[1] [...] (0) 3 Regular None (Room air) Clear [place] Warm;Dry;No swelling Soft Active 02/27/25 1202 Alert (0) 3 Regular None (Room air) Clear [place] Warm Soft -- 02/27/25 1240 -- -- -- -- Diminished Ecchymosis -- -- -- Labs Lab Results Component Value Date/Time WBC 7.9 02/27/2025 0010 HGB 8.6 (L) 02/27/2025 0010 HGB 9.4 11/11/2024 0230 HCT 28.8 (L) 02/27/2025 0010 PLT 302 02/27/2025 0010 NA 135 (L) 02/23/2025 003 K 4.1 02/23/2025 003 CL 99 02/23/2025 003 CO2 25 02/23/2025 003 BUN 21 02/23/2025 003 CREATININE 2.78 (H) 02/23/202531 CREATININE 9.99 (H) 10/27/201945 CALCIUM 9.2 02/23/202531 PHOS 2.6 02/23/2025 003 IV Drips and Rate/Dose Continuous Meds[3] Safety - Before each treatment: Dialysis Machine No.: [id number] RO Machine Number: [id number] Dialyzer Lot No.: [id number] Tubing Lot Number: [id number] All Connections Secure: Yes Venous Parameters Set: Yes Arterial Parameters Set: Yes NS Bag: Yes Saline Line Double Clamped: Yes Dialyzer: Nipro Prime Volume (mL): 200 mL RO Machine Number: [id number] RO Machine Log Sheet Completed: Yes Machine Alarm Self Test: Completed, Passed (02/27/25 0745) Air Foam Detector: Tested, Proper Function, pH Reading Extracorporeal Circuit Tested for Integrity: Yes Machine Conductivity: 13.7 Manual Conductivity: 143.6 Manual Ph: 7 Bleach Test (Neg): Yes Bath Temperature: 36 C (96.8 F) Conductivity Meter Serial #: [id number] Machine Functioning Alarm Free? Yes Dialysis Bath: K+ (Potassium): 3 Ca+ (Calcium): 2.5 Na+ (Sodium): 137 HCO3 (Bicarb): 35 Bicarbonate Concentrate Lot No.: [id number] Acid Concentrate Lot No.: [id number] Chlorine Testing - Before each treatment and every 4 hours: Time On: 0843 Time Off: 1143 Treatment Goal: 2L Weight Height: 177.8 cm (5' 10") (02/23/25 141) Weight: 60.8 kg (134 lb) (02/23/251412) BMI (Calculated): 19.23 (02/23/25 141) 1st check: [...] Active Problem List Diagnosis Anemia Paroxysmal A-fib ([facility] ([facility]) HTN (hypertension) ESRD on hemodialysis ([facility] ([facility]) IgA nephropathy determined by biopsy of kidney [...] with hypoxia (HCC) [J96.01] Tracheostomy care ([facility]) [Z43.0] 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HCC) director long term care (current) use of antibiotics [...] will see if the day shift secretary specialist can put a request in. 2321- Notified Dr. Hathaway of patient complaint of SOB and worsening chest pain that he described as dull and tight. Vitals WDL. STAT EKG ordered, patient given Nitrostat, and troponin sent down. 2329- Notified MILITARY SCIENCE TEACHER to assess the patient. Patient Name: Jun Snyder Patient : 1965 Acct: [id number] Date of Admission: 02/20/2025 Room[facility]: [facility] A Code Status: Full Code Allergies: Allergies[1] [...] - Before each treatment: Dialysis Machine No.: [id number] Machine Number: [id number] Dialyzer Lot No.: [id number] Tubing Lot Number: [id number] All Connections Secure: Yes Venous Parameters Set: Yes Arterial Parameters Set: Yes NS Bag: Yes Saline Line Double Clamped: Yes Dialyzer: Nipro Prime Volume (mL): 200 mL RO Machine Number: [id number] RO Machine Log Sheet Completed: Yes Machine Alarm Self Test: Completed, Passed (02/24/25 0810) Air Foam Detector: Tested, Proper Function, pH Reading Extracorporeal Circuit Tested for Integrity: Yes Machine Conductivity: 13.7 Manual Conductivity: 13.7 Manual Ph: 7 Bleach Test (Neg): Yes Bath Temperature: 36 C (96.8 F) Conductivity Meter Serial #: [id number] Machine Functioning Alarm Free? Yes Dialysis Bath: K+ (Potassium): 3 Ca+ (Calcium): 2.5 Na+ (Sodium): 137 HCO3 (Bicarb): 35 Bicarbonate Concentrate Lot No.: [id number] Acid Concentrate Lot No.: [id number] Chlorine Testing - Before each treatment and every 4 hours: Time On: 1112 Time Off: 1413 Treatment Goal: 2L Weight [...] feed based on dietary recommendations) Provider Name: [facility] Provider Role: Hospitalist Method of Communication: Secure chat Response: Waiting for response Notification Date: 02/21/25 Notification Time: 1955 Reason for Communication: Review case (asking about orders for tube feed based on dietary recommendations) Provider Role: Hospitalist Method of Communication: Secure chat Response: Waiting for response Notification Time: 1955 Handoff complete and report given to Primary RN at 5135. Primary RN (First Initial, Last Name, Title): [...] Active Problem List Diagnosis Anemia Paroxysmal A-fib ([facility]) (HCC) HTN (hypertension) ESRD on hemodialysis ([facility] ([facility]) IgA nephropathy determined by biopsy of kidney Diverticulosis Nonrheumatic aortic valve stenosis Calcification of abdominal aorta ([facility]) Missed vaccination due to patient refusal Tobacco abuse Alcohol use disorder in remission Atrial flutter, unspecified type ([facility]) RSV (acute bronchiolitis due to respiratory syncytial virus) Aortic stenosis Upper GI bleed S/P AVR Acute hypoxic respiratory failure ([facility]) Acute encephalopathy Pneumoperitoneum Gastric ulceration Severe malnutrition ([facility]) ([facility]) Pleural effusion Peritonitis due to fungus ([facility]) History of abdominal surgery Leg DVT (deep venous thromboembolism), acute, left ([facility]) 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, 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 of skin ([facility]) Tracheostomy dependence ([facility]) Leukocytosis Decubitus ulcer of sacral region, unstageable ([facility]) Pneumonia of both lungs due to methicillin susceptible Staphylococcus aureus (MSSA) ([facility]) Sacral osteomyelitis ([facility]) ([facility]) Acute respiratory failure with hypoxia ([facility]) [J96.01] Tracheostomy care ([facility]) [Z43.0] 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[facility]) director long term care (current) use of antibiotics Complication of tracheostomy ([facility]) ([facility]) BRBPR (bright red blood per rectum) Hemoptysis [3] heparin, 5-30 Units/kg/hr, Last Rate: 18 Units/kg/hr (02/24/25 1601) Patient continuing to order packages when he was instructed not to, multiple times, while at the hospital. Dispatch called [facility] and said a package came to the filler room attendant but they will not have access to retreive until Wednesday morning. It is locked over the weekend. Wound Care consulted for Pressure Injury Prevention. Pt's Kee score= 13 on 02/23 Pt's pressure points assessed. Pt's Right Heel, Elbows, Occiput and ears all intact. Pt currently followed by Wound TELECINE OPERATOR group for wounds to left toes, left plantar heel, right wrist, and sacrum with wound vac. For left toes, left heel, right wrist, and sacral wound assessments and treatment plan, please see Wound/Ostomy TELECINE OPERATOR progress notes. Winnett sheet noted at bedside and not on [...] Name: Jun Snyder Patient : 1965 Acct: [id number] Date of Admission: 02/20/2025 Room/Bed: [facility] A Code Status: Full Code Allergies: Allergies[1] [...] - Before each treatment: Dialysis Machine No.: [id number] RO Machine Number: [id number] Dialyzer Lot No.: [id number] Tubing Lot Number: [id number] All Connections Secure: Yes Venous Parameters Set: Yes Arterial Parameters Set: Yes NS Bag: Yes Saline Line Double Clamped: Yes Dialyzer: Nipro Prime Volume (mL): 200 mL RO Machine Number: [id number] RO Machine Log Sheet Completed: Yes Machine Alarm Self Test: Completed, Passed (test passed at 0938) (02/22/25 0940) Air Foam Detector: Tested, Proper Function, pH Reading Extracorporeal Circuit Tested for Integrity: Yes Machine Conductivity: 13.7 Manual Conductivity: 13.8 Manual Ph: 7 Bleach Test (Neg): Yes (water check negative at 1215) Bath Temperature: 36 C (96.8 F) Conductivity Meter Serial #: [id number] Machine Functioning Alarm Free? Yes Dialysis Bath: K+ (Potassium): 3 Ca+ (Calcium): 2 Na+ (Sodium): 137 HCO3 (Bicarb): 35 Bicarbonate Concentrate Lot No.: [id number] Acid Concentrate Lot No.: [id number] Chlorine Testing - Before each treatment and [...] 120 mmHg 90 600 Yes Brigitte Molina TELECINE OPERATOR at bedside, no voiced complaints. fluid [...] feed based on dietary recommendations) Provider Name: [facility] Provider Role: Hospitalist Method of Communication: Secure [...] Active Problem List Diagnosis Anemia Paroxysmal A-fib ([facility]) ([facility]) HTN (hypertension) ESRD on hemodialysis ([facility]) ([facility]) IgA nephropathy determined by biopsy of kidney Diverticulosis Nonrheumatic aortic valve stenosis Calcification of abdominal aorta ([facility]) Missed vaccination due to patient refusal Tobacco abuse Alcohol use disorder in remission Atrial flutter, unspecified type ([facility]) RSV (acute bronchiolitis due to respiratory syncytial virus) Aortic stenosis Upper GI bleed S/P AVR Acute hypoxic respiratory failure ([facility]) Acute encephalopathy Pneumoperitoneum Gastric ulceration Severe malnutrition ([facility]) ([facility]) Pleural effusion Peritonitis due to fungus ([facility]) History of abdominal surgery Leg DVT (deep venous thromboembolism), acute, left ([facility]) 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, 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 of skin ([facility]) Tracheostomy dependence ([facility]) Leukocytosis Decubitus ulcer of sacral region, unstageable ([facility]) Pneumonia of both lungs due to methicillin susceptible Staphylococcus aureus (MSSA) ([facility]) Sacral osteomyelitis ([facility]) ([facility]) Acute respiratory failure with hypoxia ([facility]) [J96.01] Tracheostomy care ([facility]) [Z43.0] 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[facility]) director long term care (current) use of antibiotics Complication of tracheostomy ([facility]) ([facility]) BRBPR (bright red blood per rectum) Hemoptysis [...] request. This RN spoke with RN at [facility] to verify medications that pt is taking. Pt arrived to hospital with wound vac on coccyx. Pt declined pictures to be taken of wound for charting. Pt states wound is being cared for by senior care facility. Pt also mentioned that his Left [...] consuelo marten transport documented in this encounter [facility] 02-26-2025 Telephone encount er Note Called spoke with a nurse at the home he lives at. She declined to schedule any appointments at this time because they don't know when patient will be discharged. She said to call back once he is out the hospital. There is no other number to contact patient directly [facility] 02-26-2025 Miscellaneous Notes Formattin g of [...] this? Thank you documented in this encounter [facility] 02-23-2025 Telephone encount er Note Called LM to call back and schedule CT and hospital follow up with any ARMIN [facility] 02-23-2025 Miscellaneous Notes Formattin g of this note might be different from the original. Called LM to call back and schedule CT and hospital follow up with any ARMIN Antonio, can we please schedule a 6-week CT scan for this patient and a follow-up appointment after this? Thank you documented in this encounter [facility] 02-23-2025 Consult note Formatting of th [...] was bright red and it stopped just SANFORIZING MACHINE OPERATOR when in transport. Reason for Consult: [...] constipation). 02/21/25 Historical Provider, epoetin rowan-epbx (Retacrit) 74250 UNIT/ML injection Inject 0.79 mL (7,900 Units) [...] 02/20/2025 Patient Name: JUN SNYDER : 1965 [facility]#: [id number] Exam Date/Time: 02/20/2025 19:01 Procedure: CT CHEST [...] bilateral pleural effusions. 5. Cholelithiasis, and diminutive [place] kidneys. Report Dictated on Electronically Signed By: [...] Jaskaran Bey MD General Surgery PGY-2 Pager [phone] [1] Past Medical History: Diagnosis Date Acute renal failure (ARF) ([facility]) 10/19/2019 Anemia 12/30/2021 Calcification of abdominal aorta ([facility]) 10/08/202309/[address] abd Diverticulosis 10/08/2023 ESRD on hemodialysis ([facility]) ([facility]) 10/26/2019 Hemodialysis patient ([facility]) ([facility]) HTN (hypertension) 12/01/2022 Hypertension IgA nephropathy IgA nephropathy determined by biopsy of kidney 10/26/2019 Missed vaccination due to patient refusal 10/08/2023 Has a number of non-scientific based beliefs which interfere with his understanding and acceptance of the medical benefit of vaccination. Nonrheumatic aortic valve stenosis 10/08/2023 Paroxysmal A-fib ([facility]) ([facility]) 08/18/2023 Tobacco abuse 10/08/2023 [2] Past Surgical History: Procedure Laterality Date APPENDECTOMY CARDIAC CATHETERIZATION N/A 10/09/2024 Performed by Bob Watson MD at [facility] Cardiac Cath/EP Lab CARDIAC CATHETERIZATION Bilateral 11/01/2024 Performed by Bob Watson MD at [facility] Cardiac Cath/EP Lab CARDIAC CATHETERIZATION N/A 11/01/2024 Performed by Bob Watson MD at [facility] Cardiac Cath/EP Lab COLONOSCOPY N/A 01/24/2025 Performed by Chadd Davis MD at [facility] ENDOSCOPY FISTULAGRAM (HISTORICAL) Left 09/15/2021 LEFT UPPER ARM HX AV FISTULA CREATION IR EMBOLIZATION 10/14/2024 IR EMBOLIZATION 10/14/2024 [facility] SPECIAL PROCEDURES IR FISTULAGRAM 08/07/2022 IR [...] 0 min Stress: Stress Concern Present (02/21/2025) [facility] - Occupational Stress Questionnaire Feeling of Stress : To some extent Social Connections: Unknown (02/21/2025) Social Connection and Isolation Panel [NHANES] Frequency of Communication with Friends and Family: More than three times a week Frequency of Social Gatherings with Friends and Family: Patient declined Attends Sikhism Services: Patient declined Active Member of Clubs [...] minutes (including chart/data review/analysis, care coordination, and qgak-no-imml encounter), and was spent discussing/counseling the patient/family [...] Care Surgery Department of Surgery [facility] Pager: [phone] ~~~~~~~~~~~~~~~~~~~~~~~~~~~~~~~~ ~~~~~~~~~~~~~~~~~~~~~~~~~~~~~ This note may have been dictated using [employer] Medical Practice Edition 2.6 and/or Navent Voice Recognition Feature. The document was proofread; however, unrecognized voice recognition regional climate change analyst errors may be present. [1] Patient Active [...] (HCC) Acute respiratory failure with hypoxia ([facility]) [J96.01] Tracheostomy care ([facility]) [Z43.0] 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HCC) director long term care (current) use of antibiotics Complication of tracheostomy (CMS/HCC) (HCC) BRBPR (bright red blood per rectum) Hemoptysis Associated Order(s): IP CONSULT TO INFECTIOUS DISEASES Images from the original note were not included. [facility] - Infectious Diseases Attending Consult [...] bilateral pleural effusions. 5. Cholelithiasis, and dimin[place] kidneys. Past Medical History: Medical History[1] Past [...] 0 min Stress: Stress Concern Present (02/21/2025) [facility] - Occupational Stress Questionnaire Feeling of Stress : To some extent Social Connections: Unknown (02/21/2025) Social Connection and Isolation Panel [NHANES] Frequency of Communication with Friends and Family: More than three times a week Frequency of Social Gatherings with Friends and Family: Patient declined Attends Sikhism Services: Patient declined Active Member of Clubs [...] inflammation Lines: sites clean Labs: Recent Labs 02/20/25 1825 02/21/25 0053 02/22/25 0100 NA 133* 131* 132* K 3.1* 3.1* 3.4* CL 92* 91* 94* CO2 BUN 29* 29* 36* CREATININE 2.57* 2.89* 3.99* GLUCOSE 80 74 121* CALCIUM 9.6 9.3 9.2 PROT -- 6.8 6.7 BILITOT -- 0.8 0.6 ALKPHOS -- 120 120 AST -- 39* 35* ALT -- 8 9 PROCAL -- 0.68* -- Recent Labs 02/20/25 1825 02/21/25 0053 02/22/25 0100 WBC 9.4 7.0 9.0 [...] Diagnosis Date Acute renal failure (ARF) ([facility]) 10/19/2019 Anemia 12/30/2021 Calcification of abdominal aorta ([facility]) 10/08/202309/[address] abd Diverticulosis 10/08/2023 ESRD on hemodialysis ([facility]) ([facility]) 10/26/2019 Hemodialysis patient ([facility]) ([facility]) HTN (hypertension) 12/01/2022 Hypertension IgA nephropathy IgA nephropathy determined by biopsy of kidney 10/26/2019 Missed vaccination due to patient refusal 10/08/2023 Has a number of non-scientific based beliefs which interfere with his understanding and acceptance of the medical benefit of vaccination. Nonrheumatic aortic valve stenosis 10/08/2023 Paroxysmal A-fib ([facility]) ([facility]) 08/18/2023 Tobacco abuse 10/08/2023 [2] Past Surgical History: Procedure Laterality Date APPENDECTOMY CARDIAC CATHETERIZATION N/A 10/09/2024 Performed by Bob Watson MD at [facility] Cardiac Cath/EP Lab CARDIAC CATHETERIZATION Bilateral 11/01/2024 Performed by Bob Watson MD at [facility] Cardiac Cath/EP Lab CARDIAC CATHETERIZATION N/A 11/01/2024 Performed by Bob Watson MD at [facility] Cardiac Cath/EP Lab COLONOSCOPY N/A 01/24/2025 Performed by Chadd Davis MD at [facility] ENDOSCOPY FISTULAGRAM (HISTORICAL) Left 09/15/2021 LEFT UPPER ARM HX AV FISTULA CREATION IR EMBOLIZATION 10/14/2024 IR EMBOLIZATION 10/14/2024 [facility] SPECIAL PROCEDURES IR FISTULAGRAM 08/07/2022 IR FISTULAGRAM 08/07/2022 SB IR IMAGING TONSILLECTOMY (HISTORICAL) [3] Current Facility-Administered [...] 9:31 AM Jolie Uribe RPh (available on [facility]) Associated Order(s): INPATIENT CONSULT TO WOUND CARE PROVIDERS Images from the original note were not included. [facility] Wound Care/NPWT Progress Note Jun Snyder [...] pain with PO pain medication, per staff nurse icu resource team, prior to wound VAC dressing change. Wet [...] apply Betadine and allow to dry, leave INFANTRY ASSAULTMAN daily and PRN Left plantar heel - unstageable pressure injury (POA): -cleanse with NS, apply Betadine and allow to dry, leave INFANTRY ASSAULTMAN daily and PRN Right wrist Abrasion: -cleanse with antibacterial soap/water, leave INFANTRY ASSAULTMAN daily Sacral Stage 4 pressure injury (POA): [...] to follow Recommend to follow up at [facility] wound care center after hospital discharge. [...] Diagnosis Date Acute renal failure (ARF) ([facility]) 10/19/2019 Anemia 12/30/2021 Calcification of abdominal aorta ([facility]) 10/08/202309/[address] abd Diverticulosis 10/08/2023 ESRD on hemodialysis ([facility]) ([facility]) 10/26/2019 Hemodialysis patient ([facility]) ([facility]) HTN (hypertension) 12/01/2022 Hypertension IgA nephropathy IgA nephropathy determined by biopsy of kidney 10/26/2019 Missed vaccination due to patient refusal 10/08/2023 Has a number of non-scientific based beliefs which interfere with his understanding and acceptance of the medical benefit of vaccination. Nonrheumatic aortic valve stenosis 10/08/2023 Paroxysmal A-fib ([facility]) ([facility]) 08/18/2023 Tobacco abuse 10/08/2023 [2] Past Surgical History: Procedure Laterality Date APPENDECTOMY CARDIAC CATHETERIZATION N/A 10/09/2024 Performed by Bob Watson MD at [facility] Cardiac Cath/EP Lab CARDIAC CATHETERIZATION Bilateral 11/01/2024 Performed by Bob Watson MD at [facility] Cardiac Cath/EP Lab CARDIAC CATHETERIZATION N/A 11/01/2024 Performed by Bob Watson MD at [facility] Cardiac Cath/EP Lab COLONOSCOPY N/A 01/24/2025 Performed by Chadd Davis MD at [facility] ENDOSCOPY FISTULAGRAM (HISTORICAL) Left 09/15/2021 LEFT UPPER ARM HX AV FISTULA CREATION IR EMBOLIZATION 10/14/2024 IR EMBOLIZATION 10/14/2024 [facility] SPECIAL PROCEDURES IR FISTULAGRAM 08/07/2022 IR [...] needed (PRN constipation). [DISCONTINUED] epoetin rowan-epbx (Retacrit) 48389 UNIT/ML injection Inject 0.79 mL (7,900 Units) [...] & deltoids) Fluid Accumulation: Unable to assess Mapping Technician Strength: Not Performed Nutrition Assessment: 59yo male admitted from [facility] 02/20 due to coughing up blood during [...] from NPO to Regular this morning. At [facility] diet was Potassium Restricted/Mech Soft/Thin + Prostat [...] Total Energy Requirements (kcals/day): 30-35 kcal/kg = 3820-8981 kcal Weight Used for Protein Requirements: Current [...] lb) (08/28/24) % Weight Change (Calculated): -34.6 [place] Body Weight (lbs) (Calculated): 166 lbs [place] Body Weight (Kg) (Calculated): 75 kg % [place] Body Weight (Calculated): 81.1 % BMI (kg/m2) [...] soon to determine Jade Rodriguez RD Contact: Restore Flow Allografts or *[phone] Associated Order(s): INPATIENT CONSULT TO WOUND CARE PROVIDERS Images from the original note were not included. [facility] Wound Care CONSULT Note Jun Snyder [...] apply Betadine and allow to dry, leave INFANTRY ASSAULTMAN daily and PRN Right wrist Abrasion: -cleanse [...] to follow Recommend to follow up at [facility] wound care center after hospital discharge. [...] Diagnosis Date Acute renal failure (ARF) ([facility]) 10/19/2019 Anemia 12/30/2021 Calcification of abdominal aorta ([facility]) 10/08/202309/[address] abd Diverticulosis 10/08/2023 ESRD on hemodialysis ([facility]) ([facility]) 10/26/2019 Hemodialysis patient ([facility]) ([facility]) HTN (hypertension) 12/01/2022 Hypertension IgA nephropathy IgA nephropathy determined by biopsy of kidney 10/26/2019 Missed vaccination due to patient refusal 10/08/2023 Has a number of non-scientific based beliefs which interfere with his understanding and acceptance of the medical benefit of vaccination. Nonrheumatic aortic valve stenosis 10/08/2023 Paroxysmal A-fib ([facility]) ([facility]) 08/18/2023 Tobacco abuse 10/08/2023 [2] Past Surgical History: Procedure Laterality Date APPENDECTOMY CARDIAC CATHETERIZATION N/A 10/09/2024 Performed by Bob Watson MD at [facility] Cardiac Cath/EP Lab CARDIAC CATHETERIZATION Bilateral 11/01/2024 Performed by Bob Watson MD at [facility] Cardiac Cath/EP Lab CARDIAC CATHETERIZATION N/A 11/01/2024 Performed by Bob Watson MD at [facility] Cardiac Cath/EP Lab COLONOSCOPY N/A 01/24/2025 Performed by Chadd Davis MD at [facility] ENDOSCOPY FISTULAGRAM (HISTORICAL) Left 09/15/2021 LEFT UPPER ARM HX AV FISTULA CREATION IR EMBOLIZATION 10/14/2024 IR EMBOLIZATION 10/14/2024 [facility] SPECIAL PROCEDURES IR FISTULAGRAM 08/07/2022 IR [...] needed (PRN constipation). [DISCONTINUED] epoetin rowan-epbx (Retacrit) 96304 UNIT/ML injection Inject 0.79 mL (7,900 Units) under the skin 1 (one) time per week. (Patient not taking: Reported on 02/21/2025) [DISCONTINUED] pantoprazole (ProtoNix) 40 MG injection Infuse 40 mg into a venous catheter 2 times daily. Cosigned by Ahsan Gill DO at 02/26/2025 4:59 PM EDT Associated Order(s): IP CONSULT TO PULMONOLOGY Images from the original note were not included. [facility], Pulmonary Medicine [phone] PULMONARY CONSULTATION NOTE. Patient - Jun Snyder, [...] Dose Status acetaminophen (Tylenol) 325 MG tablet [id number] No Take 650 mg by mouth every 6 hours as needed for mild pain (1-3) or fever. Patient not taking: Reported on 02/21/2025 Historical Provider, Unknown Active Ampicillin-Sulbactam Sodium (UNASYN IV) [id number] Infuse 3 g into a venous catheter Every 24 hours. Historical ProviderMD 02/14/252358 B complex-vitamin C-folic acid (Nephro-Nato Rx) 1 MG tablet [id number] Take 1 tablet by mouth daily. Historical ProviderMD Active bisacodyl (Dulcolax) 5 MG EC tablet [id number] Take 5 mg by mouth Daily as needed for constipation. Do not crush, chew, or split. Historical ProviderMD Active bisacodyl (Dulcolax) 5 mg split suppository [id number] Insert 10 mg into the rectum Daily as needed (PRN constipation). Historical ProviderMD Active epoetin rowan-epbx (Retacrit) 61376 UNIT/ML injection [id number] No Inject 0.79 mL (7,900 Units) under the skin 1 (one) time per week. Patient not taking: Reported on 02/21/2025 DENIA Girard CNP Unknown Active ipratropium-albuterol (Duo-Neb) 0.5-2.5 mg/3 mL nebulizer solution [id number] Yes Take 3 mL by nebulization every 8 hours. DENIA Girard CNP Past Week Active Lidocaine 4 % patch [id number] Apply 1 patch topically daily. DENIA Girard CNP Active magnesium hydroxide (Milk of Magnesia) 800 MG/5ML suspension [id number] Take 30 mL by mouth Daily as needed for constipation (if no bm in 3 days). Historical ProviderMD Active melatonin 5 MG tablet [id number] 1 tablet (5 mg) by Per G Tube route Nightly as needed (insomnia). DENIA Girard CNP Active metoprolol tartrate (Lopressor) 25 MG tablet [id number] 1 tablet (25 mg) by Per G Tube route 2 times daily. DENIA Girard CNP Active midodrine (Proamatine) 5 MG tablet [id number] 3 tablets (15 mg) by Per G Tube route every 6 hours. DENIA Girard CNP 02/14/25 235 naloxone in sodium chloride (PF) injection injection [id number] Inject 0.04 mg into the shoulder, thigh, or buttocks as needed for opioid reversal or respiratory depression. Historical Provider, Active oxyCODONE (Roxicodone) 5 MG immediate release tablet [id number] Take 1 tablet (5 mg) by mouth every 6 hours as needed for moderate pain (4-6) for up to 5 days. Barb Dawkins MD 02/14/252358 pantoprazole (ProtoNix) 40 MG injection [id number] Infuse 40 mg into a venous catheter 2 times daily. DENIA Girard CNP Active QUEtiapine (SEROquel) 25 MG tablet [id number] 1 tablet (25 mg) by Per G Tube route Nightly. DENIA Girard CNP 02/14/252358 sevelamer (Renagel) 800 MG tablet [id number] Take 800 mg by mouth 3 times daily (with meals). Swallow tablet whole; do not crush, break, or chew. Give with meals for CKD/dialysis Historical Provider, Active warfarin (Coumadin) 1 MG tablet [id number] Yes Take as directed per After Visit [...] 10/09/2024 Performed by Bob Watson MD at [facility] Cardiac Cath/EP Lab CARDIAC CATHETERIZATION Bilateral 11/01/2024 Performed by Bob Watson MD at [facility] Cardiac Cath/EP Lab CARDIAC CATHETERIZATION N/A 11/01/2024 Performed by Bob Watson MD at [facility] Cardiac Cath/EP Lab COLONOSCOPY N/A 01/24/2025 Performed by Chadd Davis MD at [facility] ENDOSCOPY FISTULAGRAM (HISTORICAL) Left 09/15/2021 LEFT UPPER ARM HX AV FISTULA CREATION IR EMBOLIZATION 10/14/2024 IR EMBOLIZATION 10/14/2024 [facility] SPECIAL PROCEDURES IR FISTULAGRAM 08/07/2022 IR FISTULAGRAM 08/07/2022 [facility] IR IMAGING TONSILLECTOMY (HISTORICAL) [2] Allergies Allergen Reactions Lisinopril Swelling and Angioedema [3] Family History Problem Relation Name Age of Onset No Known Problems Mother No Known Problems Father Cosigned by Angeles Blackburn DO at 02/21/2025 4:01 PM EDT Associated attestation - Angeles Blackburn DO - 02/21/2025 4:01 PM EDT I have personally performed a uuox-yq-njwn diagnostic evaluation on this patient on date of service 02/21/2025. History, labs, imaging studies, and electronic medical record have been reviewed by me. This note documented by the [x]linen room houseperson []ARMIN reflects my history, exam, and medical [...] RA Associated Order(s): IP CONSULT TO NEPHROLOGY [facility] [address] [place] [address] Consult Note Patient's Name: Jun [...] bilateral pleural effusions. 5. Cholelithiasis, and diminutive [place] kidneys. Assessment and Plan: 59 y.o. male [...] ESRD management. ESRD on T HD - last hd yesterday we will [...] or concerns Bree Molina APRN, CNP A-G TELECINE OPERATOR [facility] [phone] Pt seen and examined independently by me. I reviewed with DENIA-SAMIA the medical history and the findings on physical examination. I discussed the patient s diagnosis and concur with the treatment plan as documented in his note. Please call [phone] or message me through [employer] with any questions or concerns. [1] Past Medical History: Diagnosis Date Acute renal failure (ARF) ([facility]) 10/19/2019 Anemia 12/30/2021 Calcification of abdominal aorta ([facility]) 10/08/202309/[address] abd Diverticulosis 10/08/2023 ESRD on hemodialysis ([facility]) ([facility]) 10/26/2019 Hemodialysis patient ([facility] ([facility]) HTN (hypertension) 12/01/2022 Hypertension IgA nephropathy IgA nephropathy determined by biopsy of kidney 10/26/2019 Missed vaccination due to patient refusal 10/08/2023 Has a number of non-scientific based beliefs which interfere with his understanding and acceptance of the medical benefit of vaccination. Nonrheumatic aortic valve stenosis 10/08/2023 Paroxysmal A-fib ([facility]) ([facility]) 08/18/2023 Tobacco abuse 10/08/2023 [2] Past Surgical History: Procedure Laterality Date APPENDECTOMY CARDIAC CATHETERIZATION N/A 10/09/2024 Performed by Bob Watson MD at [facility] Cardiac Cath/EP Lab CARDIAC CATHETERIZATION Bilateral 11/01/2024 Performed by Bob Watson MD at [facility] Cardiac Cath/EP Lab CARDIAC CATHETERIZATION N/A 11/01/2024 Performed by Bob Watson MD at [facility] Cardiac Cath/EP Lab COLONOSCOPY N/A 01/24/2025 Performed by Chadd Davis MD at [facility] ENDOSCOPY FISTULAGRAM (HISTORICAL) Left 09/15/2021 LEFT UPPER ARM HX AV FISTULA CREATION IR EMBOLIZATION 10/14/2024 IR EMBOLIZATION 10/14/2024 [facility] SPECIAL PROCEDURES IR FISTULAGRAM 08/07/2022 IR FISTULAGRAM 08/07/2022 [facility] IR IMAGING TONSILLECTOMY (HISTORICAL) [3] Family History Problem Relation Name Age of Onset No Known Problems Mother No Known Problems Father documented in this encounter [facility] 02-23-2025 Telephone encount er Note Antonio, can we please schedule a 6-week CT scan for this patient and a follow-up appointment after this? Thank you [facility] 02-22-2025 Hospital Discharg e steven Hurtado, DO - 02/22/2025 2:54 PM EDT [...] 10/09/2024 Performed by Bob Watson MD at [facility] Cardiac Cath/EP Lab CARDIAC CATHETERIZATION Bilateral 11/01/2024 Performed by Bob Watson MD at [facility] Cardiac Cath/EP Lab CARDIAC CATHETERIZATION N/A 11/01/2024 Performed by Bob Watson MD at [facility] Cardiac Cath/EP Lab COLONOSCOPY N/A 01/24/2025 Performed by Chadd Davis MD at [facility] ENDOSCOPY FISTULAGRAM (HISTORICAL) Left 09/15/2021 LEFT [...] with hypoxia (HCC) [J96.01] Tracheostomy care ([facility]) [Z43.0] 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HCC) half-way (current) use of antibiotics Complication of tracheostomy [...] Minimal assistance Toileting Minimal assistance Feeding Independent Roastmaster Minimal assistance Med Delivery yes Wound Care [...] Date: 02/20/25 Discharging to Facility/ Agency Name: [facility] Address: [address] [place] [address] Dialysis Facility (if applicable) Name: Address: Dialysis Schedule: Phone: Fax: Welder Setter Electron Beam Machine/Oracle Database Developer signature: ICIAN SECTION Name: Jun Snyder [...] 1.5mg 6/1 - 1.3 - 1 mg 531 - 1.3 - 1 mg The individual is being admitted to a nursing facility directly from an [facility] or a unit of a hospital that is not operated by or licensed by [facility] under section 5119.14 or 5160-3-15.1 5 The individual requires the level of services provided by a nursing facility for the condition for which he or she was treated in the hospital and, Physician Certification: I certify the above information and transfer of Jun Snyder is necessary for the continuing treatment of the diagnosis listed and that he requires senior care facility for less than 30 days. Update Admission H&P: No change in H&P PHYSICIAN SIGNATURE: plet Anthony Hurtado DO - 03/05/2025 3:43 PM EDT Coumadin dosing Date INR Dose 03/05 - 1.8 - 7.5mg 6/8 - 1.5 - 7.5 mg 6/7 - 1.6 - 6 mg 6/6 - 1.4 - 5mg 6/5 - 1.4 - 4mg 6/4 - 1.3 - 3mg 6/3 - 1.3 - 2mg 6/2 - 1.3 - 1.5mg 6/1 - 1.3 - 1 mg 02/24 - 1.3 - 1 mg documented in this encounter [facility] 02-21-2025 Telephone encount er Note Name of caller: Padmini Contact phone number: [phone] Relationship to Patient: [facility] Provider: Mariano Practice: Infectious Disease Chief Complaint/Reason for Call: [facility] need a routine consult for this patient for Hemoptysis Cavitary lung lesion. Please advise Padmini Best time of day caller can be reached: any Patient advised that office/PCP has 24-48 business hours to return their call: Yes [facility] 02-21-2025 Miscellaneous Notes Formattin g of this note might be different from the original. Name of caller: Padmini Contact phone number: [phone] Relationship to Patient: [facility] Provider: Mariano Practice: Infectious Disease Chief Complaint/Reason for Call: [facility] need a routine consult for this patient for Hemoptysis Cavitary lung lesion. Please advise Padmini Best time of day caller can be reached: any Patient advised that office/PCP has 24-48 business hours to return their call: Yes documented in this encounter [facility] 02-21-2025 Note Referral [facility] to [facility] via [facility] per [facility] request. Await review and response regarding ability to accept. TCC notified. Electronically signed by NELSON Rodrigues [facility] 02-20-2025 History and physical note Attending [...] bilateral pleural effusions. 5. Cholelithiasis, and dimin[place] kidneys. Past Medical History: Past Medical History: Diagnosis Date Acute renal failure (ARF) ([facility]) 10/19/2019 Anemia 12/30/2021 Calcification of abdominal aorta ([facility]) 10/08/202309/[address] abd Diverticulosis 10/08/2023 ESRD on hemodialysis ([facility]) ([facility]) 10/26/2019 [facility]od[facility] [facility] ([facility]) HTN (hypertension) 12/01/2022 Hypertension IgA nephropathy IgA nephropathy determined by biopsy of kidney 10/26/2019 Missed vaccination due to patient refusal 10/08/2023 Has a number of non-scientific based beliefs which interfere with his understanding and acceptance of the medical benefit of vaccination. Nonrheumatic aortic valve stenosis 10/08/2023 Paroxysmal A-fib ([facility]) ([facility]) 08/18/2023 Tobacco abuse 10/08/2023 Past Surgical History: [...] Needs: No Transportation Needs (01/18/2025) Received from [facility] [place] Transportation Source Has lack of transportation kept you from medical appointments or from getting medications?: No Has lack of transportation kept you from meetings, work, or from getting things needed for daily living?: No Physical Activity: Not on file Stress: No Stress Concern Present (01/18/2025) Received from [facility] Occupational [facility] - Occupational Stress Questionnaire Feeling of Stress : Not at all Social Connections: Patient Unable To Answer (12/01/2024) Received from [facility] Medical Social Connection and Isolation Panel [NHANES] Frequency of Communication with Friends and Family: Patient unable to answer Frequency of Social Gatherings with Friends and Family: Patient unable to answer Attends Sikhism Services: Patient unable to answer Active Member of Clubs or Organizations: Patient unable to answer Attends Club or Organization Meetings: Patient unable to answer Marital Status: Patient unable to answer Intimate Partner Violence: Patient Unable To Answer (11/28/2024) Received from [facility] Medical Domestic Abuse Assessment Do [...] MD Division of Hospital Medicine Inpatient Medical Services/[facility] [1] Past Surgical History: Procedure Laterality Date APPENDECTOMY CARDIAC CATHETERIZATION N/A 10/09/2024 Performed by Bob Watson MD at [facility] Cardiac Cath/EP Lab CARDIAC CATHETERIZATION Bilateral 11/01/2024 Performed by Bob Watson MD at [facility] Cardiac Cath/EP Lab CARDIAC CATHETERIZATION N/A 11/01/2024 Performed by Bob Watson MD at [facility] Cardiac Cath/EP Lab COLONOSCOPY N/A 01/24/2025 Performed by Chadd Davis MD at [facility] ENDOSCOPY FISTULAGRAM (HISTORICAL) Left 09/15/2021 LEFT UPPER ARM HX AV FISTULA CREATION IR EMBOLIZATION 10/14/2024 IR EMBOLIZATION 10/14/2024 [facility] SPECIAL PROCEDURES IR FISTULAGRAM 08/07/2022 IR FISTULAGRAM 08/07/2022 [facility] IR IMAGING TONSILLECTOMY (HISTORICAL) [2] Family History Problem Relation Name Age of Onset No Known Problems Mother No Known Problems Father [3] Allergies Allergen Reactions Lisinopril Swelling and Angioedema documented in this encounter [facility] 02-20-2025 Note [facility] 02-20-2025 Emergency department Note Called report [...] placed. Wound is being cared for by senior care facility where he resides EMERGENCY DEPARTMENT ENCOUNTER [...] was bright red and it stopped just SANFORIZING MACHINE OPERATOR when in transport. HISTORY OF PRESENT [...] CURRENT MEDICATIONS Previous Medications EPOETIN ROWAN-EPBX (RETACRIT) 55315 UNIT/ML INJECTION Inject 0.79 mL (7,900 Units) [...] bilateral pleural effusions. 5. Cholelithiasis, and dimin[place] kidneys. Report Dictated on Electronically Signed By: [...] COURSE and DIFFERENTIAL DIAGNOSIS/MDM: Vitals: Vitals: 02/20/25 17402/20/25 17502/20/252012 BP: 135/81 (!) 149/86 BP Location: Right arm Left arm Patient Position: Lying Lying Pulse: 86 83 Resp: 18 18 Temp: 36.6 C (97.9 F) TempSrc: Oral SpO2: 99% Weight: 56.7 kg (125 lb) Height: 1.778 m (5' 10") ED Course as of 02/20/252046e February 20, 20251952 CTA chest angiogram w and/or wo IV contrast [MJ] ED Course User Index [MJ] marsha AlyaDO Diagnoses as of 02/20/252046 Hemoptysis The patient [...] of hemoptysis, he will be admitted at [facility] under the hospitalist service in [...] Diagnosis Date Acute renal failure (ARF) ([facility]) 10/19/2019 Anemia 12/30/2021 Calcification of abdominal aorta ([facility]) 10/08/202309/[address] abd Diverticulosis 10/08/2023 ESRD on hemodialysis ([facility]) ([facility]) 10/26/2019 Hemodialysis patient ([facility]) ([facility]) HTN (hypertension) 12/01/2022 Hypertension IgA nephropathy IgA nephropathy determined by biopsy of kidney 10/26/2019 Missed vaccination due to patient refusal 10/08/2023 Has a number of non-scientific based beliefs which interfere with his understanding and acceptance of the medical benefit of vaccination. Nonrheumatic aortic valve stenosis 10/08/2023 Paroxysmal A-fib ([facility]) ([facility]) 08/18/2023 Tobacco abuse 10/08/2023 [2] Past Surgical History: Procedure Laterality Date APPENDECTOMY CARDIAC CATHETERIZATION N/A 10/09/2024 Performed by Bob Watson MD at [facility] Cardiac Cath/EP Lab CARDIAC CATHETERIZATION Bilateral 11/01/2024 Performed by Bob Watson MD at [facility] Cardiac Cath/EP Lab CARDIAC CATHETERIZATION N/A 11/01/2024 Performed by Bob Watson MD at [facility] Cardiac Cath/EP Lab COLONOSCOPY N/A 01/24/2025 Performed by Chadd Davis MD at [facility] ENDOSCOPY FISTULAGRAM (HISTORICAL) Left 09/15/2021 LEFT UPPER ARM HX AV FISTULA CREATION IR EMBOLIZATION 10/14/2024 IR EMBOLIZATION 10/14/2024 [facility] SPECIAL PROCEDURES IR FISTULAGRAM 08/07/2022 IR FISTULAGRAM 08/07/2022 [facility] IR IMAGING TONSILLECTOMY (HISTORICAL) [3] [...] Patient Unable To Answer (12/01/2024) Received from [facility] Medical Overall Financial Resource Strain (CARDIA) Difficulty of Paying Living Expenses: Patient unable to answer Food Insecurity: Patient Unable To Answer (12/01/2024) Received from [facility] Medical Hunger Vital Sign Worried About Running Out of Food in the Last Year: Patient unable to answer Ran Out of Food in the Last Year: Patient unable to answer Transportation Needs: No Transportation Needs (01/18/2025) Received from [facility] [place] Transportation Source Has lack of transportation kept you from medical appointments or from getting medications?: No Has lack of transportation kept you from meetings, work, or from getting things needed for daily living?: No Stress: No Stress Concern Present (01/18/2025) Received from [facility] - Occupational Stress Questionnaire Feeling of Stress : Not at all Social Connections: Patient Unable To Answer (12/01/2024) Received from [facility] Medical Social Connection and Isolation Panel [NHANES] Frequency of Communication with Friends and Family: Patient unable to answer Frequency of Social Gatherings with Friends and Family: Patient unable to answer Attends Sikhism Services: Patient unable to answer Active Member [...] Patient Unable To Answer (12/01/2024) Received from [facility] Medical Housing Stability Vital Sign Unable to Pay for Housing in the Last Year: Patient unable to answer Number of Times Moved in the Last Year: 0 Homeless in the Last Year: Patient unable to answer DO Guido Wetzel/27/25 2051 Pt arrives via EMS due to coughing up blood. This began around 1200 today while he was at dialysis. Pt endorses nausea, but denies any related abdominal pain. Per pt and EMS, the blood he was coughing up was bright red and it stopped just SANFORIZING MACHINE OPERATOR when in transport. documented in this encounter [facility] 02-14-2025 History of Presen t illness Narrative Images from the original note were not included. [facility] Infectious Diseases Advanced Practice Provider Outpatient Progress Note HISTORYOF PRESENT ILLNESS 59 yo male with PMHx significant for ESRD on HD via AVF, HTN, PAD who was admitted at [facility] (10/03/24-11/28/24) where he underwent AVR (10/12/24). [...] Pip-Tazo and Anidulafungin. Patient was discharged to [facility] on 11/28/24 where he was followed by our ID group for recurrent MSSA LRTI. He additionally had a sacral wound that was debrided to bone 01/02/25 (Sacral wound Cx + E faecalis, Clostridium clostridioforme). He was on a course of Amp-Sulbactam planned for 6 weeks through 02/13/25 and discharged to SNF 01/18/25. Patient then presented to [facility] 01/19 after inadvertently self-dislodging tracheostomy. He was transferred to [facility] ICU for airway management and to determine if replacement tracheostomy was needed; decision was made to leave tracheostomy out. He was transferred to [facility] same day. 01/20 GI and critical [...] Patient Unable To Answer (12/01/2024) Received from [facility] Medical Overall Financial Resource Strain (CARDIA) Difficulty of Paying Living Expenses: Patient unable to answer Food Insecurity: Patient Unable To Answer (12/01/2024) Received from [facility] Medical Hunger Vital Sign Worried About Running Out of Food in the Last Year: Patient unable to answer Ran Out of Food in the Last Year: Patient unable to answer Transportation Needs: No Transportation Needs (01/18/2025) Received from [facility] [place] Transportation Source Has lack of transportation kept you from medical appointments or from getting medications?: No Has lack of transportation kept you from meetings, work, or from getting things needed for daily living?: No Physical Activity: Not on file Stress: No Stress Concern Present (01/18/2025) Received from [facility] - Occupational Stress Questionnaire Feeling of Stress : Not at all Social Connections: Patient Unable To Answer (12/01/2024) Received from [facility] Social Connection and Isolation Panel [NHANES] Frequency of Communication with Friends and Family: Patient unable to answer Frequency of Social Gatherings with Friends and Family: Patient unable to answer Attends Sikhism Services: Patient unable to answer Active Member of Clubs or Organizations: Patient unable to answer Attends Club or Organization Meetings: Patient unable to answer Marital Status: Patient unable to answer Intimate Partner Violence: Patient Unable To Answer (11/28/2024) Received from [facility] Medical Domestic Abuse Assessment Do [...] neg 01/22 Acinetobacter baumannii PCR: neg Previous ([facility]) 01/02- sacral wound cx- E faecalis (Amp-S), skin ila, Clostridium clostrioforme 01/01- blood cx- 2/2 NG 12/30- blood cx- 2/2 NGTD 12/30- sputum cx- MSSA, resp ila 12/25- blood cx- 2/2 negative 12/14- sputum cx- MSSA, resp ila 12/14- MRSA pcr- MSSA 12/11- sputum cx- MSSA, resp ila Previous ([facility]) 11/28- L pleural fluid- negative 11/16- [...] for accounting for open encounter. Mikala Day [facility] Infectious Disease [1] Past Medical History: Diagnosis Date Acute renal failure (ARF) ([facility]) 10/19/2019 Anemia 12/30/2021 Calcification of abdominal aorta ([facility]) 10/08/202309/[address] abd Diverticulosis 10/08/2023 ESRD on hemodialysis ([facility] ([facility]) 10/26/2019 Hemodialysis patient ([facility]) ([facility]) HTN (hypertension) 12/01/2022 Hypertension IgA nephropathy IgA [...] Known Problems Father documented in this encounter [facility] 02-02-2025 History of Presen t illness Narrative Images from the original note were not included. Pt discharged to [facility] on 02/01/25. Updated tracker with hospital doses. Warfarin dosing instructions: 0.5 mg per day. New interacting meds: N/a Next SAILAJA appt: post SNF documented in this encounter [facility] 02-02-2025 History of Presen t illness Narrative Images from the original note were not included. Pt discharged to [facility] on 02/01/25. Updated tracker with hospital doses. Warfarin dosing instructions: 0.5 mg per day. New interacting meds: N/a Next SAILAJA appt: post SNF Patient is still at [facility] ([phone]). I left a message for ELIA Anderson, regarding discharge plans. documented in this encounter [facility] 02-02-2025 History of Presen t illness Narrative Images from the original note were not included. Pt discharged to [facility] on 02/01/25. Updated tracker with hospital doses. Warfarin dosing instructions: 0.5 mg per day. New interacting meds: N/a Next SAILAJA appt: post SNF Patient is still at [facility] ([phone]). I left a message for ELIA Anderson, [...] readmitted on 02/20 and discharged back to [facility] on 03/05. documented in this encounter [facility] 02-01-2025 Nurse Note Transport here to take patient to [facility]. Wound Vac tubing clamped and disconnected from wound vac. Facility will determine if tubing is compatible with their wound vacs. Wound Vac Dressing leaking with foam falling out. Dressing removed and W-D drsg applied. Patient Name: Jun Snyder Patient : 1965 Acct: [id number] Date of Admission: 01/19/2025 Room/Bed: [facility] A Code Status: Full [...] with hypoxia (HCC) [J96.01] Tracheostomy care ([facility]) [Z43.0] 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HCC) director long term care (current) use of antibiotics [...] 01/31/25 0400 -- -- -- -- Diminished Ecchymosis;[place];Mark Warm;Dry [place];Gastrostomy tube Active 01/31/25 0801 Alert [...] 15 01/31/2025 0010 CREATININE 3.64 (H) 01/31/2025 0010 CREATININE 9.99 (H) 10/27/2019 0545 CALCIUM 10.0 01/31/2025 0010 PHOS 4.6 01/31/2025 0010 IV Drips and Rate/Dose sodium chloride, 20 mL/hr, Last Rate: 20 mL/hr (01/30/251837) Safety - Before each treatment: Dialysis Machine No.: [id number] RO Machine Number: [id number] Dialyzer Lot No.: [id number] Tubing Lot Number: [id number] All Connections Secure: Yes Venous Parameters Set: Yes Arterial Parameters Set: Yes NS Bag: Yes Saline Line Double Clamped: Yes Dialyzer: Nipro Prime Volume (mL): 200 mL RO Machine Number: [id number] RO Machine Log Sheet Completed: Yes Machine Alarm Self Test: Completed, Passed (722) (01/31/25742) Air Foam Detector: Tested, Proper Function, pH Reading Extracorporeal Circuit Tested for Integrity: Yes Machine Conductivity: 13.7 Manual Conductivity: 13.7 Manual Ph: 7 Bleach Test (Neg): Yes Bath Temperature: 36 C (96.8 F) Conductivity Meter Serial #: [id number] Machine Functioning Alarm Free? Yes Dialysis Bath: K+ (Potassium): 2 Ca+ (Calcium): 2.5 Na+ (Sodium): 137 HCO3 (Bicarb): 35 Bicarbonate Concentrate Lot No.: [id number] Acid Concentrate Lot No.: [id number] Chlorine Testing - Before each treatment and every 4 hours: Time On: 0811 Time Off: 1110 Treatment Goal: 2L Weight Height: 177.8 cm [...] to Education: Verbalized Understanding Patient arrived from [address] [place] [address] Dr. Borrero in to speak with the [...] Name: Jun Snyder Patient : 1965 Acct: [id number] Date of Admission: 01/19/2025 Room/Bed: [facility] A Code Status: Full Code Allergies: Allergies Allergen Reactions Lisinopril Swelling and Angioedema Diagnosis: Patient Active Problem List Diagnosis Anemia Paroxysmal A-fib ([facility]) ([facility]) HTN (hypertension) ESRD on hemodialysis ([facility]) ([facility]) IgA nephropathy determined by biopsy of kidney Diverticulosis Nonrheumatic aortic valve stenosis Calcification of abdominal aorta ([facility]) Missed vaccination due to patient refusal Tobacco abuse Alcohol use disorder in remission Atrial flutter, unspecified type ([facility]) RSV (acute bronchiolitis due to respiratory syncytial virus) Aortic stenosis Upper GI bleed S/P AVR Acute hypoxic respiratory failure ([facility]) Acute encephalopathy Pneumoperitoneum Gastric ulceration Severe malnutrition ([facility]) ([facility]) Pleural effusion Peritonitis due to fungus ([facility]) History of abdominal surgery Leg DVT (deep venous thromboembolism), acute, left ([facility]) 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, 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 of skin ([facility]) Tracheostomy dependence ([facility]) Leukocytosis Decubitus ulcer of sacral region, unstageable ([facility]) Pneumonia of both lungs due to methicillin susceptible Staphylococcus aureus (MSSA) ([facility]) Sacral osteomyelitis ([facility]) ([facility]) Acute respiratory failure with hypoxia ([facility]) [J96.01] Tracheostomy care ([facility]) [Z43.0] 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[facility]) half-way (current) use of antibiotics Complication of tracheostomy ([facility]) ([facility]) BRBPR (bright red blood per rectum) Treatment: [...] na Date of Last Dressing Change: johnnie blair [address]?: na Red [...] 01/29/25 0800 -- -- -- -- Clear [place];Mark Warm;[place]ry [place];Soft;Gastrostomy tube Active 01/29/25 0839 Alert (0) 3 Regular None (Room air) Clear [place] Warm;Dry;No swelling Soft Active 01/29/25 1210 Alert (0) 3 Regular None (Room air) Clear [place] -- -- -- Labs Lab Results Component Value Date/Time WBC 9.4 01/29/2025336 HGB 8.6 (L) 01/29/2025336 HGB 9.4 11/11/2024 0230 HCT 27.3 (L) 01/29/2025336 PLT 271 01/29/2025336 NA 134 (L) 01/29/2025336 K 3.7 01/29/2025336 CL 94 (L) 01/29/2025336 CO2 23 01/29/2025336 BUN 21 01/29/2025336 CREATININE 4.17 (H) 01/29/2025336 CREATININE 9.99 (H) 10/27/2019544 CALCIUM 9.8 01/29/2025336 PHOS 4.9 (H) 01/29/2025336 IV Drips and Rate/Dose sodium chloride, 20 mL/hr, Last Rate: 20 mL/hr (01/25/252003) Safety - Before each treatment: Dialysis Machine No.: [id number] RO Machine Number: [id number] Dialyzer Lot No.: [id number] Tubing Lot Number: [id number] All Connections Secure: Yes Venous Parameters Set: Yes Arterial Parameters Set: Yes NS Bag: Yes Saline Line Double Clamped: Yes Dialyzer: Nipro Prime Volume (mL): 200 mL RO Machine Number: [id number] RO Machine Log Sheet Completed: Yes Machine Alarm Self Test: Completed, Passed (01/29/25 0730) Air Foam Detector: Tested, Proper Function, pH Reading Extracorporeal Circuit Tested for Integrity: Yes Machine Conductivity: 13.8 Manual Conductivity: 13.8 Manual Ph: 7 Bleach Test (Neg): Yes Bath Temperature: 36 C (96.8 F) Conductivity Meter Serial #: [id number] Machine Functioning Alarm Free? Yes Dialysis Bath: K+ (Potassium): 3 Ca+ (Calcium): 2.5 Na+ (Sodium): 137 HCO3 (Bicarb): 35 Bicarbonate Concentrate Lot No.: [id number] Acid Concentrate Lot No.: [id number] Chlorine Testing - Before each treatment and [...] 210 mmHg 100 600 Yes Pt stable [id number]. Pt stable , sleeping 01/29/25 1018 400 [...] Name: Jun Snyder Patient : 1965 Acct: [id number] Date of Admission: 01/19/2025 [facility] T3[facility] A Code Status: Full Code Allergies: Allergies Allergen Reactions Lisinopril Swelling and Angioedema Diagnosis: Patient Active Problem List Diagnosis Anemia Paroxysmal A-fib ([facility]) ([facility]) HTN (hypertension) ESRD on hemodialysis ([facility]) ([facility]) IgA nephropathy determined by biopsy of kidney Diverticulosis Nonrheumatic aortic valve stenosis Calcification of abdominal aorta ([facility]) Missed vaccination due to patient refusal Tobacco abuse Alcohol use disorder in remission Atrial flutter, unspecified type ([facility]) RSV (acute bronchiolitis due to respiratory syncytial virus) Aortic stenosis Upper GI bleed S/P AVR Acute hypoxic respiratory failure ([facility]) Acute encephalopathy Pneumoperitoneum Gastric ulceration Severe malnutrition (CMS/HCC) ([facility]) Pleural effusion Peritonitis due to fungus ([facility]) History of abdominal surgery Leg DVT (deep venous thromboembolism), acute, left ([facility]) 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, 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 of skin ([facility]) Tracheostomy dependence ([facility]) Leukocytosis Decubitus ulcer of sacral region, unstageable ([facility]) Pneumonia of both lungs due to methicillin susceptible Staphylococcus aureus (MSSA) ([facility]) Sacral osteomyelitis ([facility]/HCC) ([facility]) Acute respiratory failure with hypoxia ([facility]) [J96.01] Tracheostomy care ([facility]) [Z43.0] 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[facility]) half-way (current) use of antibiotics Complication of tracheostomy (CMS/HCC) ([facility]) BRBPR (bright red blood per rectum) Treatment: [...] Ge RN Incapacitated Nurse Education Completed: Yes P.PRomulo HBsAg ONLY: Date Drawn: 2024 Results: Negative [...] - Before each treatment: Dialysis Machine No.: [id number] RO Machine Number: [id number] Dialyzer Lot No.: [id number] Tubing Lot Number: [id number] All Connections Secure: Yes Venous Parameters Set: Yes Arterial Parameters Set: Yes NS Bag: Yes Saline Line Double Clamped: Yes Dialyzer: Nipro Prime Volume (mL): 200 mL RO Machine Number: [id number] RO Machine Log Sheet Completed: Yes Machine Alarm Self Test: Completed, Passed (1226) (01/26/25 1226) Air Foam Detector: Tested, Proper Function, pH Reading Extracorporeal Circuit Tested for Integrity: Yes Machine Conductivity: 13.9 Manual Conductivity: 14 Manual Ph: 7.4 Bleach Test (Neg): Yes Bath Temperature: 36 C (96.8 F) Conductivity Meter Serial #: [id number] Machine Functioning Alarm Free? Yes Dialysis Bath: K+ (Potassium): 2 Ca+ (Calcium): 2.5 Na+ (Sodium): 137 HCO3 (Bicarb): 35 Bicarbonate Concentrate Lot No.: [id number] Acid Concentrate Lot No.: [id number] Chlorine Testing - Before each treatment and [...] Yes Pt tolerating tx well, UF removed 19302/25 1545 220 mL/min -- -- -- -- -- -- tx completed, UF [id number] Vital Signs Patient Vitals for the past [...] Name: Jun Snyder Patient : 1965 Acct: [id number] Date of Admission: 01/19/2025 Room/Bed: T3321/T3321 A Code Status: Full Code Allergies: Allergies Allergen Reactions Lisinopril Swelling and Angioedema Diagnosis: Patient Active Problem List Diagnosis Anemia Paroxysmal A-fib ([facility]) (HCC) HTN (hypertension) ESRD on hemodialysis ([facility]) ([facility]) IgA nephropathy determined by biopsy of kidney [...] with hypoxia (HCC) [J96.01] Tracheostomy care ([facility]) [Z43.0] 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HCC) director long term care (current) use of antibiotics [...] - Before each treatment: Dialysis Machine No.: [id number] RO Machine Number: [id number] Dialyzer Lot No.: [id number] Tubing Lot Number: [id number] All Connections Secure: Yes Venous Parameters Set: Yes Arterial Parameters Set: Yes NS Bag: Yes Saline Line Double Clamped: Yes Dialyzer: Nipro Prime Volume (mL): 200 mL RO Machine Number: [id number] RO Machine Log Sheet Completed: Yes Machine Alarm Self Test: Completed, Passed (test passed at 0923) (01/24/25 0925) Air Foam Detector: Tested, Proper Function, pH Reading Extracorporeal Circuit Tested for Integrity: Yes Machine Conductivity: 13.8 Manual Conductivity: 13.8 Manual Ph: 7.2 Bleach Test (Neg): Yes (water check negative at 0910) Bath Temperature: 36 C (96.8 F) Conductivity Meter Serial #: [id number] Machine Functioning Alarm Free? Yes Dialysis Bath: K+ (Potassium): 3 Ca+ (Calcium): 2.5 Na+ (Sodium): 137 HCO3 (Bicarb): 35 Bicarbonate Concentrate Lot No.: [id number] Acid Concentrate Lot No.: [id number] Chlorine Testing - Before each treatment and [...] En route Notification Date: 01/24/25 Notification Time: 041 Reason for Communication: Other (Comment) (Pt threw up clear liquid) Provider Role: Resident Method of Communication: Secure chat Response: En route Notification Time: 0412 Handoff complete and report given to Primary RN at 1220. Primary RN (First Initial, Last Name, Title): Bell Delacruz RN Education Person Educated: Patient Knowledge Base: Substantial Barriers to Learning?: None Preferred method of Learning: Oral Topic(s): Procedural Teaching Tools: Explanation Response to Education: Verbalized Understanding Patient Name: Jun Snyder Patient : 1965 Acct: [id number] Date of Admission: 01/19/2025 [facility] A Code Status: Full Code Allergies: Allergies Allergen Reactions Lisinopril Swelling and Angioedema Diagnosis: Patient Active Problem List Diagnosis Anemia Paroxysmal A-fib ([facility]) ([facility]) HTN (hypertension) ESRD on hemodialysis ([facility]) ([facility]) IgA nephropathy determined by biopsy of kidney Diverticulosis Nonrheumatic aortic valve stenosis Calcification of abdominal aorta ([facility]) Missed vaccination due to patient refusal Tobacco abuse Alcohol use disorder in remission Atrial flutter, unspecified type ([facility]) RSV (acute bronchiolitis due to respiratory syncytial virus) Aortic stenosis Upper GI bleed S/P AVR Acute hypoxic respiratory failure ([facility]) Acute encephalopathy Pneumoperitoneum Gastric ulceration Severe malnutrition ([facility]) ([facility]) Pleural effusion Peritonitis due to fungus ([facility]) History of abdominal surgery Leg DVT (deep venous thromboembolism), acute, left ([facility]) 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, 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 of skin ([facility]) Tracheostomy dependence ([facility]) Leukocytosis Decubitus ulcer of sacral region, unstageable ([facility]) Pneumonia of both lungs due to methicillin susceptible Staphylococcus aureus (MSSA) ([facility]) Sacral osteomyelitis ([facility]) ([facility]) Acute respiratory failure with hypoxia ([facility]) [J96.01] Tracheostomy care ([facility]) [Z43.0] 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[facility]) half-way (current) use of antibiotics Complication of tracheostomy ([facility]) ([facility]) Treatment: Hemodialysis 1:1 Priority: Routine Location: ICU [...] CREATININE 4.18 (H) 01/22/2025418 CREATININE 9.99 (H) 10/27/2019544 CALCIUM 9.8 01/22/2025418 PHOS 6.8 (H) 01/22/2025418 IV Drips and Rate/Dose Safety - Before each treatment: Dialysis Machine No.: [id number] RO Machine Number: [id number] Dialyzer Lot No.: [id number] Tubing Lot Number: [id number] All Connections Secure: Yes Venous Parameters Set: Yes Arterial Parameters Set: Yes NS Bag: Yes Saline Line Double Clamped: Yes Dialyzer: Nipro Prime Volume (mL): 250 mL RO Machine Number: [id number] RO Machine Log Sheet Completed: Yes Machine Alarm Self Test: Completed, Passed (01/22/25850) Air Foam Detector: Tested, Proper Function, pH Reading Extracorporeal Circuit Tested for Integrity: Yes Machine Conductivity: (13.8) Manual Conductivity: 14 Manual Ph: 7.2 Bleach Test (Neg): Yes Bath Temperature: 36 C (96.8 F) Conductivity Meter Serial #: [id number] Machine Functioning Alarm Free? Yes Dialysis Bath: K+ (Potassium): 2 Ca+ (Calcium): 2.5 Na+ (Sodium): 137 HCO3 (Bicarb): 35 Bicarbonate Concentrate Lot No.: [id number] Acid Concentrate Lot No.: [id number] Chlorine Testing - Before each treatment and [...] Name: Jun Snyder Patient : 1965 Acct: [id number] Date of Admission: 01/19/2025 Room/Bed: [facility] [...] with hypoxia (HCC) [J96.01] Tracheostomy care ([facility]) [Z43.0] 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HCC) director long term care (current) use of antibiotics [...] 0514 CL 98 01/20/2025 0514 CO2 22 01/20/2025 0514 BUN 91 (H) 01/20/2025 0514 CREATININE 4.31 (H) 01/20/2025 0514 CREATININE 9.99 (H) 10/27/2019 0545 CALCIUM 9.2 01/20/2025 0514 PHOS 6.1 (H) 01/20/2025 0514 IV Drips and Rate/Dose pantoprazole (ProtoNix) 80 mg in sodium chloride 0.9 % 100 mL (0.8 mg/mL) infusion, 8 mg/hr Safety - Before each treatment: Dialysis Machine No.: [id number] RO Machine Number: [id number] Dialyzer Lot No.: [id number] Tubing Lot Number: [id number] All Connections Secure: Yes Venous Parameters Set: Yes Arterial Parameters Set: Yes NS Bag: Yes Saline Line Double Clamped: Yes Dialyzer: Nipro Prime Volume (mL): 200 mL RO Machine Number: [id number] RO Machine Log Sheet Completed: Yes Machine Alarm Self Test: Completed, Passed (1000) (01/20/25 1000) Air Foam Detector: Tested, Proper Function, pH Reading Extracorporeal Circuit Tested for Integrity: Yes Machine Conductivity: 13.6 Manual Conductivity: 13.8 Manual Ph: 7.2 Bleach Test (Neg): Yes Bath Temperature: 36 C (96.8 F) Conductivity Meter Serial #: [id number] Machine Functioning Alarm Free? Yes Dialysis Bath: K+ (Potassium): 2 Ca+ (Calcium): 2.5 Na+ (Sodium): 137 HCO3 (Bicarb): 35 Bicarbonate Concentrate Lot No.: [id number] Acid Concentrate Lot No.: [id number] Chlorine Testing - Before each treatment and [...] 80 600 Yes ID at bedside, UF 01/20/25 1130 400 mL/min 600 ml/hr -140 mmHg 210 mmHg 80 600 Yes Primary RN at bedside, blood clots noted coming from rectum, GI aware, UF removed 586. 01/20/25 1145 400 mL/min 600 ml/hr -140 mmHg 220 mmHg 80 600 Yes Primary RN at bedside, Lucinda hullat this time, UF removed 726 01/20/25 1150 [...] Education: Verbalized Understanding documented in this encounter [facility] 02-01-2025 Miscellaneous Notes Formattin g of this note might be different from the original. 7000 created in [facility] per TCC request. Facility notified via [facility]port. Authorization approved for the [facility] through 02/02/25, discharge orders placed, ROSENDO completed. Transportation placed and confirmed for today 02/01/25 at 330pm to the [facility], physician/patient/secretary specialist/RN aware. INSOLE STIFFENER tasked to send 7000 and DC summary. Hep B panels, 3 days of HD flowsheets, MAR and OPAT sent to the [facility] via [facility]. Call placed to the [facility] to confirm able to still take patient [...] Nutrition Support Outcome: Progressing Updates placed to [facility] via Careport per [facility] request. Await review and response regarding [...] Nutrition Support Outcome: Progressing Message sent to Piping Design Specialist to start [facility] for [facility]. Problem: Pain - Adult Goal: Verbalizes/displays [...] order to start auth to return to [facility] per previous TCC note of plan. [...] or Improved Outcome: Progressing Updates placed to [facility] per TCC request. Await review and response regarding ability to accept. TCC notified. Tasked [facility] to send updates to [facility], per their request. Warfarin bridging per MD notes, patient will need NEW auth for return to [facility]. Problem: Pain - Adult Goal: Verbalizes/displays [...] Nutrition Support Outcome: Progressing Dialysis placed to [facility] - [facility] via Careport per TCC request. Care Management Progress Note PCU transfer pending. Received one unit PRBC this AM for low Hgb. HD today. Heparin drip ongoing. IVAB (plan for 6 week course). Wound vac to sacral wound. Room Air. Dysphagia diet; pureed. DC plan - [facility]. Facility updated via careport. INSOLE STIFFENER asked to send dialysis note per their [...] Early Mobility/Exercise Safety Screen: Activity: Bed mobility -[facility] Score: Bed activity LDAs Peripheral IV 01/19/25 Right Forearm (Active) Number of days: 4 Peripheral IV 01/23/25 Anterior;Distal;Right Forearm (Active) Number of days: 0 Enterostomy Gastric 20 Fr. LUQ (Active) Number of days: 70 - Central Line indicated: N/A - Payne indicated: N/A OPAT placed to [facility] via Careport per TCC request. 01/25/25 1047 Rapid Rounds Attendance Welder Setter Electron Beam Machine Planned Discharge Disposition SNF Today we still await Administering IV medications;Mud Worker recommendations (comment);Clinical stability;Symptomatic control;Post-discharge arrangement completion (comment) Patient remains on MICU. S/P colonoscopy 01/24-negative for active bleeding. Heparin drip resumed post procedure. Wound vac to sacral wound; IVAB till 02/13; OPAT under chart review > media. Plan for MBSS. Room Air. DC plan - [facility] when medically appropriate. CM will [...] Interventions Goal: Nutrition Support Outcome: [facility] Patient Name: Jun Snyder Procedure Date: 01/24/2025 12:37 PM Gender: Male Date of : 1965 Age: 59 Admit Type: Inpatient Note Status: Finalized Endoscopist: Chadd Davis MD, [id number] Procedure: Colonoscopy Indications: Evaluation of unexplained GI [...] by the physician, the nurse and the home connect lpn in the pre-procedure area in the procedure [...] anticoagulant use Procedure Code(s): --- Professional --- 87289, Colonoscopy, flexible; diagnostic, including collection of specimen(s) by brushing or washing, when performed (separate procedure) --- Technical --- 26780, Colonoscopy, flexible; diagnostic, including collection of specimen(s) by brushing or washing, when performed (separate procedure) Diagnosis Code(s): --- Professional --- K64.0, First degree hemorrhoids K92.1, Melena (includes Hematochezia) Z79.01, half-way (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 anticoagulants K57.30, Diverticulosis of large intestine without perforation or abscess without bleeding --- Technical --- K64.0, First degree hemorrhoids K92.1, Melena (includes Hematochezia) Z79.01, director long term care (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 anticoagulants K57.30, Diverticulosis of large intestine without perforation or abscess without bleeding CPT copyright 2021 [employer]. All rights reserved. The codes documented in this report are preliminary and upon global regulatory lead review may be revised to meet current [...] mg, Oral, q6h PRN, 10 mg at 01/23/252039 prochlorperazine, 5 mg, IntraVENous, q6h PRN sodium [...] or improved Outcome: Progressing Flowsheets (Taken 01/24/2025 07) Care Plan - Patient's Chronic Conditions and [...] Note: Diagnosis: Principal Problem: Complication of tracheostomy ([facility]) ([facility]) Active Problems: Severe malnutrition ([facility]) ([facility]) Chief Complaint: Jun Snyder is a 59 y.o. male with chief complaint of: trach complications, OM from decub Reason Palliative Following:Goals of Care Plan:Ongoing Goals of Care Discussions and Support Code Status: Full Code Medications: Palliative Care Not Managing Any Medications Nursing: [facility] and Skin Integrity Social Work: Palliative [...] care team, reviewed Health Care Power of Stem Teacher (HCPOA) with patient. Patient agreeable to complete [...] secondary agent. DC plan - return to [facility]. CM will continue to follow Length of Stay (Days): 1 GMLOS: 4.5 Images from the original note were not included. [facility] Palliative Care Transitions of Care Note [...] to have bile peritonitis" 11/28/24: transferred to [facility] He ended up developing sacral ulcer and osteomyelitis at [facility]. He then ended up dislodging his tracheostomy, and was brought to [facility] ED for further care. Palliative care consulted for goals of care. 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 [facility] Patient Name: Jun Snyder Procedure Date: 01/21/2025 9:59 AM Gender: Male Date of : 1965 Age: 59 Admit Type: Inpatient Note Status: Finalized Endoscopist: ELDON Alba MD, [id number] Procedure: Upper GI endoscopy Indications: Acute post [...] by the physician, the nurse and the home connect lpn in the pre-procedure area in the procedure [...] loss: None. Procedure Code(s): --- Professional --- 04479, Esophagogastroduodenoscopy, flexible, transoral; diagnostic, including collection of specimen(s) by brushing or washing, when performed (separate procedure) --- Technical --- 82643, Esophagogastroduodenoscopy, flexible, transoral; diagnostic, including collection of [...] D62, Acute posthemorrhagic anemia CPT copyright 2021 [employer]. All rights reserved. The codes documented in this report are preliminary and upon global regulatory lead review may be revised to meet current [...] Care Plan Patient was transferred over from [facility] after self-dislodged tracheostomy this morning [...] and treatment plans Return referral placed to [facility] via Careport per TCC request. Await review and response regarding ability to accept. TCC notified. 01/19/25 1300 Rapid Rounds Attendance Welder Setter Electron Beam Machine Planned Discharge Disposition SNF Today we still await Clinical stability;Mud Worker recommendations (comment);Symptomatic control;Post-discharge arrangement completion (comment) Patient admitted due to trach dislodgement. Patient was discharged from [facility] to the [facility]; there only a matter of hours per [...] He would like patient to return to [facility] SNF is able at DC. Does not want patient to return to [facility]. INSOLE STIFFENER asked to place referral to [facility]. CM will continue to follow for DC [...] improved Outcome: Progressing documented in this encounter [facility] 02-01-2025 History of Presen t illness Narrative Images from the original note were not included. [facility] - Infectious Diseases Advanced Practice [...] 12/11- sputum cx- MSSA, resp ila Previous ([facility]) 11/28- L pleural fluid- negative 11/16- [...] of use of antimicrobials. Mikala MORAN PA-C [facility] Infectious Disease Nephrology Progress Note Following for [...] not included. Speech-Language Pathology SPEECH LANGUAGE PATHOLOGY [facility] Dysphagia Treatment Note Patient Name: Jun Snyder Evaluation Date: 02/01/2025 Date of : 1965 Admission Date: 01/19/2025 2:13 AM Age: 59 y.o. Room/Bed: [facility] A Subjective Patient alert and [...] strategies. Plan & Recommendations Plan: Continue acute BUTTON BUTTONHOLE MARKER therapy per initial plan of care and [...] Expected End: 02/02/25 Resolved: 01/25/25 Therapy Time BUTTON BUTTONHOLE MARKER Individual Minutes Time In: 08 Time Out: 0830 Minutes: 13 KRISTEN SalazarBUTTON BUTTONHOLE MARKER Hospitalist Progress Note Subjective: Admit Date: 01/19/2025 PCP: Leilani Troncoso Room#: 1C-144/1C-144 A Chief Complaint Patient presents with Tracheostomy Tube Change Brief Hospital course: Jun Snyder is a 59 y.o. male who who presented to [facility] 01/19 after inadvertent removal of his tracheostomy. He was transferred to [facility] ICU for surgical evaluation. On arrival [...] line on 01/29 Nephrology following, on dialysis BUTTON BUTTONHOLE MARKER following PT/OT recommends SNF Patient will be [...] Diagnosis Date Acute renal failure (ARF) ([facility]) 10/19/2019 Anemia 12/30/2021 Calcification of abdominal aorta ([facility]) 10/08/202309/[address] abd Diverticulosis 10/08/2023 ESRD on hemodialysis ([facility]) ([facility]) 10/26/2019 Hemodialysis patient ([facility]) ([facility]) HTN (hypertension) 12/01/2022 Hypertension IgA nephropathy IgA nephropathy determined by biopsy of kidney 10/26/2019 Missed vaccination due to patient refusal 10/08/2023 Has a number of non-scientific based beliefs which interfere with his understanding and acceptance of the medical benefit of vaccination. Nonrheumatic aortic valve stenosis 10/08/2023 Paroxysmal A-fib ([facility]) ([facility]) 08/18/2023 Tobacco abuse 10/08/2023 Adult diet Dysphagia [...] interval not displayed. BMP: Recent Labs 01/30/25 00401/31/25902/01/25 0114 NA 135* 138 136 K 3.7 4.3 3.7 CL 99 99 99 CO2 23 27 26 BUN 10 15 7* CREATININE 2.56* 3.64* 2.39* GLUCOSE 88 87 87 CALCIUM 9.6 10.0 9.7 ANIONGAP 13 12 11 LIVER PROFILE: Recent Labs 01/31/25902/01/25 0114 AST 31 32 ALT 11 10 BILITOT 0.8 0.9 ALKPHOS 218* 226* PROT 7.3 7.4 PT/INR: Recent Labs 01/30/25 00401/31/250 02/01/25 0114 PROTIME 24.9* 22.4* 20.3* INR [...] by ID -S/p tunneled central line placement -BUTTON BUTTONHOLE MARKER follow, dysphagia diet -PT OT DC recommend [...] MD Division of Hospital Medicine Inpatient Medical Services/[facility] Anticoagulation Management Service ([facility]) Inpatient Warfarin Consult HPI: Jun Snyder is a 59 y.o. male admitted on 01/19/2025 for Complication of tracheostomy ([facility] ([facility]) [J95.00] Past Medical History: Diagnosis Date Acute renal failure (ARF) ([facility]) 10/19/2019 Anemia 12/30/2021 Calcification of abdominal aorta ([facility]) 10/08/202309/[address] abd Diverticulosis 10/08/2023 ESRD on hemodialysis ([facility]) ([facility]) 10/26/2019 Hemodialysis patient ([facility]) ([facility]) HTN (hypertension) 12/01/2022 Hypertension IgA nephropathy IgA [...] this interval not displayed. Recent Labs 02/01/25 011 INR 2.0* Date INR Dose 02/01 2.0 [...] dose accordingly 3. Will facilitate f/u at [facility] upon discharge Tiffanie Dial RPh [facility] is available daily [phone] via [employer]. If no response on [employer] Chat then please page [phone]. Images from the original note were not included. OCCUPATIONAL THERAPY [facility] Re-Evaluation Name/MRN: Jair Snyder ([id number]) Evaluation Date: 01/31/2025 Date of : 1965 Admission Date: 01/19/2025 2:13 AM Age: 59 y.o. Room/Bed: 1C-144/1C-144 A Discharge Recommendation: Retirement Facility Other: DME TBD Assessment IMPRESSION: OT [...] upright in bed, agreeable to OT. Pain: Michel-Babcock Pain Ratin = Hurts whole lot Pain Location: buttocks Past Medical History: Past Medical History: Diagnosis Date Acute renal failure (ARF) ([facility]) 10/19/2019 Anemia 12/30/2021 Calcification of abdominal aorta ([facility]) 10/08/202309/[address] abd Diverticulosis 10/08/2023 ESRD on hemodialysis ([facility]) ([facility]) 10/26/2019 Hemodialysis patient ([facility]) ([facility]) HTN (hypertension) 12/01/2022 Hypertension IgA nephropathy IgA nephropathy determined by biopsy of kidney 10/26/2019 Missed vaccination due to patient refusal 10/08/2023 Has a number of non-scientific based beliefs which interfere with his understanding and acceptance of the medical benefit of vaccination. Nonrheumatic aortic valve stenosis 10/08/2023 Paroxysmal A-fib ([facility]) ([facility]) 08/18/2023 Tobacco abuse 10/08/2023 Past Surgical History: Past Surgical History: Procedure Laterality Date APPENDECTOMY CARDIAC CATHETERIZATION N/A 10/09/2024 Performed by Bob Watson MD at [facility] Cardiac Cath/EP Lab CARDIAC CATHETERIZATION Bilateral 11/01/2024 Performed by Bob Watson MD at [facility] Cardiac Cath/EP Lab CARDIAC CATHETERIZATION N/A 11/01/2024 Performed by Bob Watson MD at [facility] Cardiac Cath/EP Lab COLONOSCOPY N/A 01/24/2025 Performed by Chadd Davis MD at [facility] ENDOSCOPY FISTULAGRAM (HISTORICAL) Left 09/15/2021 LEFT UPPER ARM HX AV FISTULA CREATION IR EMBOLIZATION 10/14/2024 IR EMBOLIZATION 10/14/2024 [facility] SPECIAL PROCEDURES IR FISTULAGRAM 08/07/2022 IR FISTULAGRAM 08/07/2022 [facility] IR IMAGING TONSILLECTOMY (HISTORICAL) Admission Diagnosis: Patient Active Problem List Diagnosis Date Noted Severe malnutrition (CMS/HCC) ([facility]) 01/19/2025 Complication of tracheostomy ([facility]) ([facility]) 01/19/2025 half-way (current) use of antibiotics 01/12/2025 Acute respiratory failure with hypoxia ([facility]) [J96.01] 01/08/2025 Tracheostomy care ([facility]) [Z43.0] 01/08/2025 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[facility]) 01/08/2025 Sacral osteomyelitis (CMS/HCC) ([facility]) 01/03/2025 Pneumonia of both lungs due to methicillin susceptible Staphylococcus aureus (MSSA) ([facility]) 01/01/2025 Leukocytosis 12/30/2024 Decubitus ulcer of sacral region, unstageable ([facility]) 12/30/2024 Peritonitis due to fungus ([facility]) 11/30/2024 History of abdominal surgery 11/30/2024 Leg DVT (deep venous thromboembolism), acute, left ([facility]) 11/30/2024 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, 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 of skin ([facility]) 11/30/2024 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 Pleural effusion 11/28/2024 Gastric ulceration 2024 Atrial flutter, unspecified type ([facility]) 10/03/2024 RSV (acute bronchiolitis due to respiratory syncytial virus) 10/03/2024 Diverticulosis 10/08/2023 Nonrheumatic aortic valve stenosis 10/08/2023 Calcification of abdominal aorta ([facility]) 10/08/2023 Missed vaccination due to patient refusal 10/08/2023 Tobacco abuse 10/08/2023 Alcohol use disorder in remission 10/08/2023 Paroxysmal A-fib (CMS/HCC) ([facility]) 08/18/2023 HTN (hypertension) 12/01/2022 ESRD on hemodialysis ([facility]) 10/26/2019 IgA nephropathy determined by biopsy of kidney 10/26/2019 BRBPR (bright red blood per rectum) 01/19/2025 Aortic stenosis 10/03/2024 Upper GI bleed 10/03/2024 S/P AVR 10/03/2024 Acute hypoxic respiratory failure ([facility]) 10/03/2024 Acute encephalopathy 10/03/2024 Pneumoperitoneum 10/03/2024 Anemia [...] Daily Activity Raw Score: 12 ADL Inpatient [facility] G-Code Modifier: CL Plan Pt would [...] of Care supervision is transferred to a [facility] Therapy Services Occupational Therapist. Goals and/or treatment plan was established in collaboration with patient/family/other representatives. Images from the original note were not included. Speech-Language Pathology SPEECH LANGUAGE PATHOLOGY [facility] Dysphagia Treatment Note Patient Name: Jun [...] diet and for oropharyngeal strengthening. Continue acute BUTTON BUTTONHOLE MARKER therapy per initial plan of care and [...] Expected End: 02/02/25 Resolved: 01/25/25 Therapy Time BUTTON BUTTONHOLE MARKER Individual Minutes Time In: 1454 Time Out: 1515 Minutes: 21 FRANKLIN Carmona Images from the original note were not included. OCCUPATIONAL THERAPY [facility] Name/MRN: Jair Snyder ([id number]) Date: 01/31/2025 Attempted OT re-eval once pt returned from dialysis, pt very fatigued. Initially responsive to OT then stops conversing and unable to remain roused. Will follow and attempt as able. [place] Ramirez Images from the original note were not included. [facility] - Infectious Diseases Advanced Practice [...] negative 01/22 A baumannii screen: negative Previous ([facility]) 01/02- sacral wound cx- E faecalis (Amp-S), skin ila, Clostridium clostrioforme 01/01- blood cx- 2/2 NG 12/30- blood cx- 2/2 NGTD 12/30- sputum cx- MSSA, resp ila 12/25- blood cx- 2/2 negative 12/14- sputum cx- MSSA, resp ila 12/14- MRSA pcr- MSSA 12/11- sputum cx- MSSA, resp ila Previous ([facility]) 11/28- L pleural fluid- negative 11/16- [...] of use of antimicrobials. Mikala MORAN PA-C [facility] Infectious Disease Images from the original note were not included. OCCUPATIONAL THERAPY [facility] Name/MRN: Jair Snyder ([id number]) Date: 01/31/2025 Attempted OT re-eval this AM, [...] lower extremity edema Data: Labs: Recent Labs 01/29/257 01/30/25 0047 01/30/25 1224 01/31/25 0010 WBC 9.4 8.8 -- 9.3 HGB 8.6* 8.7* 9.8* 8.8* HCT 27.3* 28.1* 31.5* 27.9* MCV 89.2 89.2 -- 90.0 PLT 271 276 -- 278 Recent Labs 01/29/257 01/30/25 0047 01/31/25 0010 [...] any questions or concerns Bree Molina APRN HAND I BLOCKER A-G TELECINE OPERATOR [facility] [phone] Pt seen and examined independently by me. I reviewed with DENIA-SAMIA the medical history and the findings on physical examination. I discussed the patient s diagnosis and concur with the treatment plan as documented in his note. Please call [phone] or message me through [employer] with any questions or concerns. [facility] Anticoagulation Management Service ([facility]ILAJA) Inpatient Warfarin Consult HPI: Jun Snyder is a 59 y.o. male admitted on 01/19/2025 for Complication of tracheostomy ([facility] ([facility]) [J95.00] Past Medical History: Diagnosis Date Acute renal failure (ARF) ([facility]) 10/19/2019 Anemia 12/30/2021 Calcification of abdominal aorta ([facility]) 10/08/202309/[address] abd Diverticulosis 10/08/2023 ESRD on hemodialysis ([facility]) 10/26/2019 Hemodialysis patient ([facility] HTN (hypertension) 12/01/2022 Hypertension IgA nephropathy IgA [...] dose accordingly 3. Will facilitate f/u at [facility] upon discharge Tiffanie Dial RPh [facility] is available daily [phone] via [employer] Chat. If no response on [employer] Chat then please page [phone]. Hospitalist Progress Note Subjective: Admit Date: 01/19/2025 PCP: Leilani Troncoso Room#: 1C-144/1C-144 A Chief Complaint Patient presents with Tracheostomy Tube Change Brief Hospital course: Jun Snyder is a 59 y.o. male who who presented to [facility] 01/19 after inadvertent removal of his tracheostomy. He was transferred to [facility] ICU for surgical evaluation. On arrival [...] HD successfully. hemodynamically stable. Transferred out to [facility] 01/27 ID following for sacral osteomyelitis, s/p wound debridement to bone on 01/02, cultures grew E faecalis and Clostridium, continue with renally dosed ampicillin sulbactam for 6 weeks course through 02/13/2025, needs tunneled line, status post IR CVC tunneled line on 01/29 Nephrology following, on dialysis BUTTON BUTTONHOLE MARKER following PT recommends SNF Interval History: 01/31/2025-No overnight issues. Patient is seen and examined Patient is resting in his bed Dialysis today Denies any new acute complaints Labs reviewed, ESRD picture, hemoglobin 8.8, stable Case and plan discussed with patient and bedside nurse. All questions answered. Past Medical History: Past Medical History: Diagnosis Date Acute renal failure (ARF) ([facility]) 10/19/2019 Anemia 12/30/2021 Calcification of abdominal aorta ([facility]) 10/08/202309/[address] abd Diverticulosis 10/08/2023 ESRD on hemodialysis ([facility]) 10/26/2019 Hemodialysis patient ([facility] ([facility]) HTN (hypertension) 12/01/2022 Hypertension IgA nephropathy IgA [...] by ID -S/p tunneled central line placement -BUTTON BUTTONHOLE MARKER follow, dysphagia diet -PT OT DC planning [...] MD Division of Hospital Medicine Inpatient Medical Services/[facility] Anticoagulation Management Service ([facility]) Inpatient Warfarin Consult HPI: Jun Snyder is a 59 y.o. male admitted on 01/19/2025 for Complication of tracheostomy ([facility]) [J95.00] Past Medical History: Diagnosis Date Acute renal failure (ARF) ([facility]) 10/19/2019 Anemia 12/30/2021 Calcification of abdominal aorta ([facility]) 10/08/202309/[address] abd Diverticulosis 10/08/2023 ESRD on hemodialysis ([facility]) 10/26/2019 Hemodialysis patient ([facility] HTN (hypertension) 12/01/2022 Hypertension IgA nephropathy IgA [...] will continue to hold warfarin. Please notify [facility] when able to resume warfarin. 2. Monitor for s/s of bleeding and drug interactions. Will adjust dose accordingly 3. Will facilitate f/u at [facility] upon discharge Fatuma Odonnell RPh [facility] is available daily [phone] via [employer] Chat. If no response on [employer] Chat then please page [phone]. Images from the original note were not included. OCCUPATIONAL THERAPY [facility] Name/MRN: Jair Snyder ([id number]) Date: 01/30/2025 Attempted OT services however, Pt [...] candidate for diet upgrade. Christina Limon MS, CCC/BUTTON BUTTONHOLE MARKER Nutrition Assessment Type and Reason for Visit: [...] Severe who remains admitted after presenting to [facility] on 01/19 after inadvertent removal of his tracheostomy. He was transferred to [facility] ICU for surgical evaluation, however pt was maintaining appropriate O2 saturations on room air and the decision was made to leave the tracheostomy out. Pt transferred to [facility] later that day (01/19). Course c/b [...] MWF schedule with Nephrology following. Transferred to [facility] 01/27. ID continues following for sacral osteomyelitis and recs IV Unasyn x 6 weeks--> stop date 02/13. Course c/b anxiousness and paranoia, often refusing care and wound dressing changes. In terms of nutrition, pt was only receiving nutrition via PEG SANFORIZING MACHINE OPERATOR. He was NPO 01/19, Nepro @ 50mls/hr initiated 01/20 which ran until pt was made NPO/CLD for colonoscopy prep 01/23. Remained NPO 01/24, underwent MBSS 01/25 with recs for pureed/thin which remains his current diet with BUTTON BUTTONHOLE MARKER following and recommending the same. PO intake [...] bedscale, 10/31: 200#, 11/28: 161#, 01/18: 142#) [place] Body Weight (lbs) (Calculated): 166 lbs [place] Body Weight (Kg) (Calculated): 75 kg % [place] Body Weight (Calculated): 70.5 % BMI (kg/m2) [...] soon to determine Marilu Pollock RD Contact: *[phone] Images from the original note were not included. PHYSICAL THERAPY [facility] Treatment Note Name/MRN: Jair Snyder ([id number]) Date of : 1965 Age: 59 y.o. Room/Bed: 1C-144/1C-144 A Discharge Recommendation: [facility] Facility Other: tbd Assessment Pt requires mod to max assist for bed mobility. No PT goals met this session. Recommend SNF at discharge. Subjective Pt is supine in the envella bed, agrees to PT. Pain: Michel-Babcock Pain Ratin = Hurts even more Pain [...] from the original note were not included. [facility] - Infectious Diseases Advanced Practice [...] negative 01/22 A baumannii screen: negative Previous ([facility]) 01/02- sacral wound cx- E faecalis (Amp-S), [...] be of moderate complexity. Mikala MORAN PA-C [facility] Infectious Disease Hospitalist Progress Note Subjective: Admit Date: 01/19/2025 PCP: Leilani Troncoso Room#: 1C-144/1C-144 A Chief Complaint Patient presents with Tracheostomy Tube Change Brief Hospital course: Jun Snyder is a 59 y.o. male who who presented to [facility] 01/19 after inadvertent removal of his tracheostomy. He was transferred to [facility] ICU for surgical evaluation. On arrival [...] line on 01/29 Nephrology following, on dialysis BUTTON BUTTONHOLE MARKER following PT recommends SNF Interval History: 01/30/2025-No [...] Diagnosis Date Acute renal failure (ARF) ([facility]) 10/19/2019 Anemia 12/30/2021 Calcification of abdominal aorta ([facility]) 10/08/202309/[address] abd Diverticulosis 10/08/2023 ESRD on hemodialysis ([facility]) 10/26/2019 Hemodialysis patient ([facility]) HTN (hypertension) 12/01/2022 Hypertension IgA nephropathy IgA nephropathy determined by biopsy of kidney 10/26/2019 Missed vaccination due to patient refusal 10/08/2023 Has a number of non-scientific based beliefs which interfere with his understanding and acceptance of the medical benefit of vaccination. Nonrheumatic aortic valve stenosis 10/08/2023 Paroxysmal A-fib ([facility]) ([facility]) 08/18/2023 Tobacco abuse 10/08/2023 Adult diet Dysphagia [...] by ID -S/p tunneled central line placement -BUTTON BUTTONHOLE MARKER follow, dysphagia diet -PT OT DC planning [...] MD Division of Hospital Medicine Inpatient Medical Services/[facility] Nephrology Progress Note Mr. Jun Snyder is [...] Nicole MD 01/30/2025 9:08 AM [facility] [address], [address] [place] [id number] Office: [phone] Images from the original note were not included. Speech-Language Pathology SPEECH LANGUAGE PATHOLOGY [facility] Dysphagia Treatment Note Patient Name: Jun [...] Expected End: 02/02/25 Resolved: 01/25/25 Therapy Time BUTTON BUTTONHOLE MARKER Individual Minutes Time In: 1438 Time Out: 1456 Minutes: 18 FRANKLIN Bailon Images from the original note were not included. [facility] - Infectious Diseases Attending [...] 01/29/2025336 K 3.7 01/29/2025336 CL 94 (L) 01/29/2025 033 CO2 23 01/29/2025 0337 BUN 21 01/29/2025336 CREATININE 4.17 (H) 01/29/2025336 CREATININE 9.99 (H) 10/27/2019 0545 GLUCOSE 80 01/29/2025336 CALCIUM 9.8 01/29/2025336 PROT 7.6 01/22/2025418 BILITOT 0.9 01/22/2025418 ALKPHOS 274 (H) 01/22/2025 0419 AST 51 [...] low complexity. Radha Yee MD [facility] Nephrology Progress Note Mr. Jun Snyder is [...] status and labs. Please message me through [email or web address] chat with any questions or concerns. [place] Nicole MD 01/29/2025 10:13 AM [facility] [address] [place] [address], [address] [place] [address] Office: [phone] Images from the original note were not included. Hospitalist Progress Note 01/29/2025 Subjective: Admit Date: 01/19/2025 PCP: Leilani Troncoso Room#: 1C-144/1C-144 A Brief Hospital Summary: Jun Snyder is a 59 y.o. male who who presented to [facility] 01/19 after inadvertent removal of his tracheostomy. He was transferred to [facility] ICU for surgical evaluation. On arrival [...] HD successfully. hemodynamically stable. Transferred out to [facility] 01/27 Interval History: No overnight issues. [...] Diagnosis Date Acute renal failure (ARF) ([facility]) 10/19/2019 Anemia 12/30/2021 Calcification of abdominal aorta ([facility]) 10/08/202309/[address] abd Diverticulosis 10/08/2023 ESRD on hemodialysis ([facility]) 10/26/2019 Hemodialysis patient ([facility] HTN (hypertension) 12/01/2022 Hypertension IgA nephropathy IgA nephropathy determined by biopsy of kidney 10/26/2019 Missed vaccination due to patient refusal 10/08/2023 Has a number of non-scientific based beliefs which interfere with his understanding and acceptance of the medical benefit of vaccination. Nonrheumatic aortic valve stenosis 10/08/2023 Paroxysmal A-fib ([facility]) ([facility]) 08/18/2023 Tobacco abuse 10/08/2023 LABS: CBC: Recent [...] QT Interval 413 QTC Interval 515 P [place] 69 QRS [place] 93 T Wave [place] 87 MO Interval 148 Impression Sinus rhythm Left atrial [...] sodium chloride 0.9 % 100 mL IVPB (Add-Leroy), 3,000 mg, IntraVENous, q24h, Radha Yee MD, [...] q5 min PRN, Earlene Lozano APRN - HAND I BLOCKER, 5 mg at 01/25/25 1846 metoprolol tartrate (Lopressor) tablet 25 mg, 25 mg, Per G Tube, BID, Earlene Lozano APRN - HAND I BLOCKER, 25 mg at 01/28/25 2222 midodrine (Proamatine) [...] by ID Ordered tunneled central line placement BUTTON BUTTONHOLE MARKER follow, dysphagia diet PT OT DC planning Past Medical History: Diagnosis Date Acute renal failure (ARF) (HCC) 10/19/2019 Anemia 12/30/2021 Calcification of abdominal aorta (HCC) 10/08/202309/[address] abd Diverticulosis 10/08/2023 ESRD on hemodialysis ([facility] 10/26/2019 Hemodialysis patient ([facility] HTN (hypertension) 12/01/2022 Hypertension IgA nephropathy IgA nephropathy determined by biopsy of kidney 10/26/2019 Missed vaccination due to patient refusal 10/08/2023 Has a number of non-scientific based beliefs which interfere with his understanding and acceptance of the medical benefit of vaccination. Nonrheumatic aortic valve stenosis 10/08/2023 Paroxysmal A-fib ([facility]) ([facility]) 08/18/2023 Tobacco abuse 10/08/2023 Plan As above [...] MD Division of Hospitalist Medicine Inpatient Medical Services/[facility] Images from the original note were not included. [facility] Wound Care Progress Note Jun Snyder [...] diverticulosis, IgA nephropathy, severe that presented to [facility] ED from a facility due [...] Diagnosis Date Acute renal failure (ARF) ([facility]) 10/19/2019 Anemia 12/30/2021 Calcification of abdominal aorta ([facility]) 10/08/202309/[address] abd Diverticulosis 10/08/2023 ESRD on hemodialysis ([facility]) 10/26/2019 Hemodialysis patient ([facility]) HTN (hypertension) 12/01/2022 Hypertension IgA nephropathy IgA nephropathy determined by biopsy of kidney 10/26/2019 Missed vaccination due to patient refusal 10/08/2023 Has a number of non-scientific based beliefs which interfere with his understanding and acceptance of the medical benefit of vaccination. Nonrheumatic aortic valve stenosis 10/08/2023 Paroxysmal A-fib ([facility]) ([facility]) 08/18/2023 Tobacco abuse 10/08/2023 PAST SURGICAL HISTORY Past Surgical History: Procedure Laterality Date APPENDECTOMY CARDIAC CATHETERIZATION N/A 10/09/2024 Performed by Bob Watson MD at [facility] Cardiac Cath/EP Lab CARDIAC CATHETERIZATION Bilateral 11/01/2024 Performed by Bob Watson MD at [facility] Cardiac Cath/EP Lab CARDIAC CATHETERIZATION N/A 11/01/2024 Performed by Bob Watson MD at [facility] Cardiac Cath/EP Lab COLONOSCOPY N/A 01/24/2025 Performed by Chadd Davis MD at [facility] ENDOSCOPY FISTULAGRAM (HISTORICAL) Left 09/15/2021 LEFT UPPER ARM HX AV FISTULA CREATION IR EMBOLIZATION 10/14/2024 IR EMBOLIZATION 10/14/2024 [facility] SPECIAL PROCEDURES IR FISTULAGRAM 08/07/2022 IR FISTULAGRAM 08/07/2022 [facility] IR IMAGING TONSILLECTOMY (HISTORICAL) FAMILY [...] Medication Sig Dispense Refill epoetin rowan-epbx (Retacrit) 02982 UNIT/ML injection Inject 0.79 mL (7,900 Units) [...] to follow Recommend to follow up at [facility] Outpatient wound care center after hospital discharge. [...] Gill DO at 01/29/2025 4:37 PM EDT [facility] Anticoagulation Management Service ([facility]ILA[facility]) Inpatient Warfarin Consult HPI: Jun Snyder is a 59 y.o. male admitted on 01/19/2025 for Complication of tracheostomy ([facility]) [J95.00] Past Medical History: Diagnosis Date Acute renal failure (ARF) ([facility]) 10/19/2019 Anemia 12/30/2021 Calcification of abdominal aorta ([facility]) 10/08/202309/[address] abd Diverticulosis 10/08/2023 ESRD on hemodialysis ([facility] ([facility]) 10/26/2019 Hemodialysis patient ([facility] HTN (hypertension) 12/01/2022 Hypertension IgA nephropathy IgA nephropathy determined by biopsy of kidney 10/26/2019 Missed vaccination due to patient refusal 10/08/2023 Has a number of non-scientific based beliefs which interfere with his understanding and acceptance of the medical benefit of vaccination. Nonrheumatic aortic valve stenosis 10/08/2023 Paroxysmal A-fib ([facility] ([facility]) 08/18/2023 Tobacco abuse 10/08/2023 Patient is on warfarin for Afib, mechanical AVR and has a goal INR 2.0 - 3.0. Warfarin is currently managed by facility, has yet to be seen by [facility]. Pt's home dose of warfarin is not [...] dose accordingly 3. Will facilitate f/u at [facility] upon discharge Fatuma Odonnell RPh [facility] is available daily [phone] via [employer]. If no response on [employer] Chat then please page [phone]. [facility] Nephrology Progress Note Mr. Jun Snyder is [...] concerns. Wellington Nicole MD 01/28/2025 2:08 PM [facility] [address], [address] [place] [address] Office: [phone] Hospitalist Progress Note 01/28/2025 Subjective: Admit Date: 01/19/2025 PCP: Leilani Troncoso Room#: 1C-144/1C-144 A Brief Hospital Summary: Jun Snyder is a 59 y.o. male who who presented to [facility] 01/19 after inadvertent removal of his tracheostomy. He was transferred to [facility] ICU for surgical evaluation. On arrival [...] HD successfully. hemodynamically stable. Transferred out to [facility] 01/27 Interval History: No overnight issues. [...] Diagnosis Date Acute renal failure (ARF) ([facility]) 10/19/2019 Anemia 12/30/2021 Calcification of abdominal aorta (HCC) 10/08/202309/[address] abd Diverticulosis 10/08/2023 ESRD on hemodialysis ([facility]) 10/26/2019 Hemodialysis patient ([facility] HTN (hypertension) 12/01/2022 Hypertension IgA nephropathy IgA [...] QT Interval 413 QTC Interval 515 P [place] 69 QRS [place] 93 T Wave [place] 87 MO Interval 148 Impression Sinus rhythm Left atrial [...] sodium chloride 0.9 % 100 mL IVPB (Add-Leroy), 3,000 mg, IntraVENous, q24h, Radha Yee MD, [...] q5 min PRN, Earlene Lozano APRN - HAND I BLOCKER, 5 mg at 01/25/25 1846 metoprolol tartrate (Lopressor) tablet 25 mg, 25 mg, Per G Tube, BID, Earlene Lozano APRN - HAND I BLOCKER, 25 mg at 01/28/25 0848 midodrine (Proamatine) [...] for sacral wound by ID PT OT BUTTON BUTTONHOLE MARKER follow, dysphagia diet Past Medical History: Diagnosis Date Acute renal failure (ARF) ([facility]) 10/19/2019 Anemia 12/30/2021 Calcification of abdominal aorta ([facility]) 10/08/202309/[address] abd Diverticulosis 10/08/2023 ESRD on hemodialysis ([facility] ([facility]) 10/26/2019 Hemodialysis patient ([facility]) HTN (hypertension) 12/01/2022 Hypertension IgA nephropathy IgA nephropathy determined by biopsy of kidney 10/26/2019 Missed vaccination due to patient refusal 10/08/2023 Has a number of non-scientific based beliefs which interfere with his understanding and acceptance of the medical benefit of vaccination. Nonrheumatic aortic valve stenosis 10/08/2023 Paroxysmal A-fib ([facility] ([facility]) 08/18/2023 Tobacco abuse 10/08/2023 Plan As above [...] Division of Hospitalist Medicine Inpatient Medical Services/[place] [facility] Anticoagulation Management Service ([facility]) Inpatient Warfarin Consult HPI: Jun Snyder is a 59 y.o. male admitted on 01/19/2025 for Complication of tracheostomy ([facility] ([facility]) [J95.00] Past Medical History: Diagnosis Date Acute renal failure (ARF) ([facility]) 10/19/2019 Anemia 12/30/2021 Calcification of abdominal aorta ([facility]) 10/08/202309/[address] abd Diverticulosis 10/08/2023 ESRD on hemodialysis ([facility] ([facility]) 10/26/2019 Hemodialysis patient ([facility] ([facility]) HTN (hypertension) 12/01/2022 Hypertension IgA nephropathy IgA nephropathy determined by biopsy of kidney 10/26/2019 Missed vaccination due to patient refusal 10/08/2023 Has a number of non-scientific based beliefs which interfere with his understanding and acceptance of the medical benefit of vaccination. Nonrheumatic aortic valve stenosis 10/08/2023 Paroxysmal A-fib ([facility] 08/18/2023 Tobacco abuse 10/08/2023 Patient is on [...] dose accordingly 3. Will facilitate f/u at [facility] upon discharge Vu Guido PharmD [facility] is available daily [phone] via [employer]. If no response on [employer] then please page [phone]. [facility] Anticoagulation Management Service (SAILAJA) Inpatient Warfarin Consult HPI: Jun Snyder is a 59 y.o. male admitted on 01/19/2025 for Complication of tracheostomy ([facility] ([facility]) [J95.00] Past Medical History: Diagnosis Date Acute renal failure (ARF) ([facility]) 10/19/2019 Anemia 12/30/2021 Calcification of abdominal aorta ([facility]) 10/08/202309/[address] abd Diverticulosis 10/08/2023 ESRD on hemodialysis ([facility]) ([facility]) 10/26/2019 Hemodialysis patient ([facility]) ([facility]) HTN (hypertension) 12/01/2022 Hypertension IgA nephropathy IgA [...] dose accordingly 3. Will facilitate f/u at [facility] upon discharge Vu Guido PharmD [facility] is available daily [phone] via [employer]. If no response on [employer] Chat then please page [phone]. [facility] Respiratory Care Department Progress Note As part [...] Respiratory in the care of this patient, [facility] Nephrology Progress Note Mr. Jun Snyder is [...] days Lab Units 01/27/25 0006 01/26/25205201/26/25 0952 01/26/2524701/25/25 0953 01/25/25 0251 WBC AUTO 10*3/uL [...] status and labs. Please message me through [email or web address] chat with any questions or concerns. Wellington Nicole MD 01/27/2025 7:11 AM [facility] [address] [place] [address], [address] [place] [address] Office: [phone] ICU Progress Note Name: Jun Snyder : 1965(59 y.o.) Date: 01/27/25 Team: MICU Attending: DARRYN HIGGINS Subjective: Hospital Summary: Jun Snyder is a 59 y.o. male who who presented to [facility] 01/19 after inadvertent removal of his tracheostomy. He was transferred to [facility] ICU for surgical evaluation. On arrival [...] Normal [] Scar/Lesion/Mass Inspection of teeth/lips/gums Dentition: [x][place] Teeth []Dentures Lips/Gums: [x]Intact []Lesion Present Mucosa: [x][place] []Moist []Dry Neck: External Appearance Overall Appearance: [...] 24 hours- BMP: Recent Labs 01/25/25 0251 01/26/258 01/27/25 0006 NA 138 136 139 K [...] displayed. ABGs: No results for input(s): "PHART", "IJW7CGY", "PO2ART", "DYC5QPX", "SO2ART", "X7PYCEWE" in the last 72 hours. Lactic Acid: [...] Principal Problem: Complication of tracheostomy (CMS/HCC) ([facility]) Active Problems: Severe malnutrition (CMS/HCC) ([facility]) BRBPR (bright red blood per rectum) GIB [...] H/H and PT/INR q12 - Diet per BUTTON BUTTONHOLE MARKER recs Appreciate Recs: Pureed solids and Thin [...] apply Betadine and allow to dry, leave INFANTRY ASSAULTMAN daily and PRN - PVRs for circulation check - rec wound vac for sacral wound, change 3x/wk and PRN Hx CAD s/p CABG Severe Aortic stenosis s/p proesthetic mechanical valve S/p 23mm [place] Luis mechanical valve replacement on 10/12. TTE 11/24 without mechanical valve regurgitation or stenosis - heparin - Warfarin 0.5 mg once daily, pharmacy to dose ESRD (on HD [facility]) HAGMA - improving Hypotension, chronic S/P HD, [...] and warfarin Disposition: Stable for Transfer to [facility] Cosigned by Darryn Higgins MD at [...] PT/OT - Remains stable for transfer to [facility]. Code Status: Full Code Disposition: ok for [facility] Time spent preparing to see the patient, obtaining/reviewing separately obtained history, completing an appropriate medical examination of the patient, ordering medications/tests/procedures, documenting clinical information on the EMR, and/or coordinating care is a subsequent visit: 35 minutes (Level II). Darryn Higgins MD Pulmonary and Critical Care Medicine Attending Pager #[phone] Images from the original note were not included. PHYSICAL THERAPY [facility] Name/MRN: Jair Snyder ([id number]) Date: 01/26/2025 Attempt Note Pt on iHD. Will re-attempt as able. Chantal Rossi PT [facility] Nephrology Progress Note Mr. Jun Snyder is [...] status and labs. Please message me through [email or web address] chat with any questions or concerns. Wellington Nicole MD 01/26/2025 1:55 PM [facility] [address], [address] [place] [address] Office: [phone] Speech-Language Pathology Pt is a hold at this time, as he is receiving dialysis. Will re-attempt next date as schedule permits. Treva Mccallum MS. CCC-BUTTON BUTTONHOLE MARKER ICU Transfer Checklist Hospital course: 59 y.o. male PMH trach s/p removal, peg, HTN, afib, ESRD on TTS HD, aortic stenosis s/p mechanical valve who presented to [facility] 01/19 after inadvertent removal of his tracheostomy. Transferred to [facility] ICU for surgical evaluation. On arrival [...] convert to PO if able) None Anticipated [place] Medications (ICU initiated) or Dose Changes and Indication No Permanently Discontinued Home Medications and Reason for medication contraindication No Payne Catheter (please remove if able. Note: place DC order) No Central Line (please remove if able. Note: place DC order) No Transfer Discussed with: Dr. Russell [facility] If additional questions for ICU team within 24 hours of ICU transfer, page regional dedicated truck driver ICU resident for clarifications. [facility] Anticoagulation Management Service (SAILAJA) Inpatient Warfarin Consult HPI: Jun Snyder is a 59 y.o. male admitted on 01/19/2025 for Complication of tracheostomy ([facility] ([facility]) [J95.00] Past Medical History: Diagnosis Date Acute renal failure (ARF) ([facility]) 10/19/2019 Anemia 12/30/2021 Calcification of abdominal aorta ([facility]) 10/08/202309/[address] abd Diverticulosis 10/08/2023 ESRD on hemodialysis ([facility]) ([facility]) 10/26/2019 Hemodialysis patient ([facility]) ([facility]) HTN (hypertension) 12/01/2022 Hypertension IgA nephropathy IgA nephropathy determined by biopsy of kidney 10/26/2019 Missed vaccination due to patient refusal 10/08/2023 Has a number of non-scientific based beliefs which interfere with his understanding and acceptance of the medical benefit of vaccination. Nonrheumatic aortic valve stenosis 10/08/2023 Paroxysmal A-fib ([facility]) ([facility]) 08/18/2023 Tobacco abuse 10/08/2023 Patient is on warfarin for Afib, mechanical AVR and has a goal INR 2.0 - 3.0. Warfarin is currently managed by facility, has yet to be seen by [facility]. Pt's home dose of warfarin is not [...] dose accordingly 3. Will facilitate f/u at [facility] upon discharge Adalberto Deleon PharmD [facility] is available daily [phone] via [employer]. If no response on [employer] then please page [phone]. Images from the original note were not included. [facility] - Infectious Diseases Attending Progress [...] (L) 01/01/2025 0100 MONOPCT 13.7 (H) 01/23/2025 151 MONOPCT 10 01/01/2025 0100 LABEOS 4.9 10/27/2019 [...] from the original note were not included. [facility] Wound Care Progress Note Jun Snyder [...] diverticulosis, IgA nephropathy, severe that presented to [facility] ED from a facility due to trach dislodgement. Wound Care consulted for Pressure Injury sacrum and Ischemic ulcers to left toes" Patient resting in [place] with floor RN present at bedside. Wound vac changed at time of visit with patient tolerating well. Denies any needs. PAST MEDICAL HISTORY Past Medical History: Diagnosis Date Acute renal failure (ARF) ([facility]) 10/19/2019 Anemia 12/30/2021 Calcification of abdominal aorta (HCC) 10/08/202309/[address] abd Diverticulosis 10/08/2023 ESRD on hemodialysis ([facility]) ([facility]) 10/26/2019 Hemodialysis patient ([facility] ([facility]) HTN (hypertension) 12/01/2022 Hypertension IgA nephropathy IgA [...] 10/09/2024 Performed by Bob Watson MD at [facility] Cardiac Cath/EP Lab CARDIAC CATHETERIZATION Bilateral 11/01/2024 Performed by Bob Watson MD at [facility] Cardiac Cath/EP Lab CARDIAC CATHETERIZATION N/A 11/01/2024 Performed by Bob Watson MD at [facility] Cardiac Cath/EP Lab COLONOSCOPY N/A 01/24/2025 Performed by Chadd Davis MD at [facility] ENDOSCOPY FISTULAGRAM (HISTORICAL) Left 09/15/2021 LEFT UPPER ARM HX AV FISTULA CREATION IR EMBOLIZATION 10/14/2024 IR EMBOLIZATION 10/14/2024 [facility] SPECIAL PROCEDURES IR FISTULAGRAM 08/07/2022 IR [...] Medication Sig Dispense Refill epoetin rowan-epbx (Retacrit) 65944 UNIT/ML injection Inject 0.79 mL (7,900 Units) [...] to follow Recommend to follow up at [facility] Outpatient wound care center after hospital discharge. [...] 59 y.o. male who who presented to [facility] 01/19 after inadvertent removal of his tracheostomy. He was transferred to [facility] ICU for surgical evaluation. On arrival [...] kg/m . I/O: 01/25 0700 - 01/26 659 In: 626 [I.V.:626] Out: [...] Normal [] Scar/Lesion/Mass Inspection of teeth/lips/gums Dentition: [x][place] Teeth []Dentures Lips/Gums: [x]Intact []Lesion Present Mucosa: [x][place] []Moist []Dry Neck: External Appearance Overall Appearance: [...] Glucose: Recent Labs 01/23/25 0626 01/23/25 2317 01/24/2542801/24/25121601/25/2525001/26/25 0248 GLUCOSE -- -- 74 77 74 75 POCGLU 92 113* -- -- -- -- BHYDRXBUT -- -- 10.5* -- -- -- Procal: No results for input(s): "PROCAL" in the last 72 hours. CBC: Recent Labs 01/24/25 0610 01/24/25 1217 01/25/2525001/25/25 0953 01/25/25 1302 01/25/25 1948 01/26/25 0248 [...] displayed. ABGs: No results for input(s): "PHART", "CIP7TTI", "PO2ART", "RQZ4ZIR", "SO2ART", "K5MZHQAR" in the last 72 hours. Lactic Acid: [...] Principal Problem: Complication of tracheostomy (CMS/HCC) ([facility]) Active Problems: Severe malnutrition (CMS/HCC) ([facility]) BRBPR (bright red blood per rectum) GIB [...] peripheral blood smear pending - Diet per BUTTON BUTTONHOLE MARKER recs - continue q12 H/H and PT/INR [...] apply Betadine and allow to dry, leave INFANTRY ASSAULTMAN daily and PRN - PVRs for circulation [...] on heparin and warfarin Disposition: Transfer to [facility] Cosigned by Darryn Higgins MD at [...] hemoglobin stable today. Stable for transfer to [facility]. Code Status: Full Code Disposition: Transfer to [facility] Time spent preparing to see the patient, obtaining/reviewing separately obtained history, completing an appropriate medical examination of the patient, ordering medications/tests/procedures, documenting clinical information on the EMR, and/or coordinating care is a subsequent visit: 35 minutes (Level II). Darryn Higgins MD Pulmonary and Critical Care Medicine Attending Pager #[phone] Images from the original note were not included. [facility] - Infectious Diseases Attending Progress [...] K 3.9 01/25/2025 0251 CL 98 01/25/2025 025 CO2 24 01/25/2025 [...] stenosis s/p mechanical valve who presented to [facility] 01/19 after inadvertent removal of his tracheostomy. Transferred to [facility] ICU for surgical evaluation. On arrival [...] convert to PO if able) None Anticipated [place] Medications (ICU initiated) or Dose Changes and Indication No Permanently Discontinued Home Medications and Reason for medication contraindication No Payne Catheter (please remove if able. Note: place DC order) No Central Line (please remove if able. Note: place DC order) No Transfer Discussed with: Dr. Russell [facility] If additional questions for ICU team within 24 hours of ICU transfer, page regional dedicated truck driver ICU resident for clarifications. Images from the original note were not included. Speech-Language Pathology SPEECH LANGUAGE PATHOLOGY [facility] Modified Barium Swallow Study Patient Name: Jun Snyder Evaluation Date: 01/25/2025 Date of : 1965 Admission Date: 01/19/2025 2:13 AM Age: 59 y.o. [facility] A IMPRESSION: The patient presents with moderate [...] swallow). Pt would benefit from skilled acute BUTTON BUTTONHOLE MARKER services to ensure diet tolerance, train swallow [...] Diagnosis Date Acute renal failure (ARF) ([facility]) 10/19/2019 Anemia 12/30/2021 Calcification of abdominal aorta ([facility]) 10/08/202309/[address] abd Diverticulosis 10/08/2023 ESRD on hemodialysis ([facility]) ([facility]) 10/26/2019 Hemodialysis patient ([facility]) ([facility]) HTN (hypertension) 12/01/2022 Hypertension IgA nephropathy IgA nephropathy determined by biopsy of kidney 10/26/2019 Missed vaccination due to patient refusal 10/08/2023 Has a number of non-scientific based beliefs which interfere with his understanding and acceptance of the medical benefit of vaccination. Nonrheumatic aortic valve stenosis 10/08/2023 Paroxysmal A-fib ([facility]) ([facility]) 08/18/2023 Tobacco abuse 10/08/2023 Past Surgical History: Past Surgical History: Procedure Laterality Date APPENDECTOMY CARDIAC CATHETERIZATION N/A 10/09/2024 Performed by Bob Watson MD at [facility] Cardiac Cath/EP Lab CARDIAC CATHETERIZATION Bilateral 11/01/2024 Performed by Bob Watson MD at [facility] Cardiac Cath/EP Lab CARDIAC CATHETERIZATION N/A 11/01/2024 Performed by Bob Watson MD at [facility] Cardiac Cath/EP Lab COLONOSCOPY N/A 01/24/2025 Performed by Chadd Davis MD at [facility] ENDOSCOPY FISTULAGRAM (HISTORICAL) Left 09/15/2021 LEFT UPPER ARM HX AV FISTULA CREATION IR EMBOLIZATION 10/14/2024 IR EMBOLIZATION 10/14/2024 [facility] SPECIAL PROCEDURES IR FISTULAGRAM 08/07/2022 IR FISTULAGRAM 08/07/2022 [facility] IR IMAGING TONSILLECTOMY (HISTORICAL) Admission Diagnosis: Patient Active Problem List Diagnosis Date Noted Severe malnutrition ([facility]) ([facility]) 01/19/2025 Complication of tracheostomy ([facility]) ([facility]) 01/19/2025 director long term care (current) use of antibiotics 01/12/2025 Acute respiratory failure with hypoxia ([facility]) [J96.01] 01/08/2025 Tracheostomy care ([facility]) [Z43.0] 01/08/2025 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[facility]) 01/08/2025 Sacral osteomyelitis ([facility]) ([facility]) 01/03/2025 Pneumonia of both lungs due to methicillin susceptible Staphylococcus aureus (MSSA) ([facility]) 01/01/2025 Leukocytosis 12/30/2024 Decubitus ulcer of sacral region, unstageable ([facility]) 12/30/2024 Peritonitis due to fungus ([facility]) 11/30/2024 History of abdominal surgery 11/30/2024 Leg DVT (deep venous thromboembolism), acute, left ([facility]) 11/30/2024 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, 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 of skin ([facility]) 11/30/2024 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 Pleural effusion 11/28/2024 Gastric ulceration 2024 Atrial flutter, unspecified type ([facility]) 10/03/2024 RSV (acute bronchiolitis due to respiratory syncytial virus) 10/03/2024 Diverticulosis 10/08/2023 Nonrheumatic aortic valve stenosis 10/08/2023 Calcification of abdominal aorta ([facility]) 10/08/2023 Missed vaccination due to patient refusal 10/08/2023 Tobacco abuse 10/08/2023 Alcohol use disorder in remission 10/08/2023 Paroxysmal A-fib ([facility]) ([facility]) 08/18/2023 HTN (hypertension) 12/01/2022 ESRD on hemodialysis ([facility]) ([facility]) 10/26/2019 IgA nephropathy determined by biopsy of [...] diverticulosis, IgA nephropathy, severe that presented to [facility] ED from a facility due to trach dislodgement. Per patient, was trying to disconnect his vent to transfer to another room but accidentally pulled out his tracheostomy. This event happened approximately 45 minutes before ED arrival. ED attempted to place tracheostomy tube back but were unsuccessful. Decision was made to transfer patient to [facility] ICU for further airway management and [...] Expected End: 02/02/25 Resolved: 01/25/25 Therapy Time BUTTON BUTTONHOLE MARKER Individual Minutes Time In: 1145 Time Out: 1205 Minutes: 20 Christina Nunez MA, CCC/BUTTON BUTTONHOLE MARKER [facility] Anticoagulation Management Service (SAILAJA) Inpatient Warfarin Consult HPI: Jun Snyder is a 59 y.o. male admitted on 01/19/2025 for Complication of tracheostomy ([facility]) ([facility]) [J95.00] Past Medical History: Diagnosis Date Acute renal failure (ARF) ([facility]) 10/19/2019 Anemia 12/30/2021 Calcification of abdominal aorta ([facility]) 10/08/202309/[address] abd Diverticulosis 10/08/2023 ESRD on hemodialysis ([facility]) ([facility]) 10/26/2019 Hemodialysis patient ([facility] ([facility]) HTN (hypertension) 12/01/2022 Hypertension IgA nephropathy IgA nephropathy determined by biopsy of kidney 10/26/2019 Missed vaccination due to patient refusal 10/08/2023 Has a number of non-scientific based beliefs which interfere with his understanding and acceptance of the medical benefit of vaccination. Nonrheumatic aortic valve stenosis 10/08/2023 Paroxysmal A-fib ([facility]) ([facility]) 08/18/2023 Tobacco abuse 10/08/2023 Patient is on [...] dose accordingly 3. Will facilitate f/u at [facility] upon discharge Adalberto Deleon PharmD, PharmD [facility] is available daily [phone] via [employer]. If no response on [employer] then please page [phone]. [facility] Nephrology Progress Note Mr. Jun Snyder is [...] concerns. Wellington Nicole MD 01/25/2025 11:44 AM [facility] [address], [address] [place] [address] Office: [phone] Images from the original note were not [...] time - planning to eventually discharge to [facility] - will forward chart to Palliative [...] AV replacement Supratherapeutic INR - [facility] Sales Project Administrator valve in 09/2024 - coumadin held due to bleeding and supratherapeutic levels Chronic respiratory failure s/p tracheostomy Tracheostomy dislodgement - has been saturating well without trach on RA so has not been replaced Palliative Care Encounter - Code Status: Full Code - Jun Snyder has been seen in consultation by [facility] Palliative [facility] during their admission to [facility]. They currently have no uncontrolled symptoms [...] Palliative Care IDT members involved: Palliative Care Oracle Database Developer Discussed the plan of care with [...] to have bile peritonitis" 11/28/24: transferred to [facility] He ended up developing sacral ulcer and osteomyelitis at [facility]. He then ended up dislodging his tracheostomy, and was brought to [facility] ED for further care. Palliative care [...] much better. Planning to eventually [facility]. Discussed trying to get palliative [...] child(rocky) Living status: SNF Work history: unknown Brant status: unknown Sikhism annette: Non-Jainism ROS: See palliative care ROS/ESAS below; All other systems were reviewed and are negative. Martin Symptom Assessment Score Martin Score Pain Score (if non-verbal, add .FLACC [...] 59 y.o. male who who presented to [facility] 01/19 after inadvertent removal of his tracheostomy. He was transferred to [facility] ICU for surgical evaluation. On arrival [...] 1648) Objective: Last Vitals: BP MAP 124/74 (01/25/25428) 85 (01/25/25 0400) Arterial BP MAP Temp [...] Normal [] Scar/Lesion/Mass Inspection of teeth/lips/gums Dentition: [x][place] Teeth []Dentures Lips/Gums: [x]Intact []Lesion Present Mucosa: [x][place] []Moist []Dry Neck: External Appearance Overall Appearance: [...] 19.2* ABGs: No results for input(s): "PHART", "GZK7LZB", "PO2ART", "QSL1DTG", "SO2ART", "S9VRMKCK" in the last 72 hours. Lactic Acid: [...] (HCC) Active Problems: Severe malnutrition (CMS/HCC) ([facility]) BRBPR (bright red blood per rectum) GIB [...] peripheral blood smear pending - Diet per BUTTON BUTTONHOLE MARKER recs - continue q12 H/H and PT/INR [...] apply Betadine and allow to dry, leave INFANTRY ASSAULTMAN daily and PRN - PVRs for circulation [...] Prophylaxis: SCDs warfarin held Disposition: Transfer to [facility] Cosigned by Darryn Higgins MD at [...] and appropriate. If stable can transfer to [facility]. Code Status: Full Code Disposition: Transfer to [facility] Time spent preparing to see the patient, obtaining/reviewing separately obtained history, completing an appropriate medical examination of the patient, ordering medications/tests/procedures, documenting clinical information on the EMR, and/or coordinating care is a subsequent visit: 35 minutes (Level II). Darryn Higgins MD Pulmonary and Critical Care Medicine Attending Pager #[phone] Images from the original note were not included. [facility] - Infectious Diseases Advanced Practice [...] 01/22 A baumannii screen: in process Previous ([facility]) 01/02- sacral wound cx- E faecalis (Amp-S), [...] be of moderate complexity. Mikala MORAN PA-C [facility] Infectious Disease [facility] Nephrology Progress Note Mr. Jun Snyder is [...] status and labs. Please message me through [email or web address] chat with any questions or concerns. Wellington Nicole MD 01/24/2025 3:17 PM [facility] [address] [place] [address], [address] [place] [address] Office: [phone] Nutrition Assessment Type and Reason for Visit: [...] receiving and tolerating while at [facility]. Noted BUTTON BUTTONHOLE MARKER is following- trach remains out and pt stable without it. BUTTON BUTTONHOLE MARKER most recently recommended MBSS completion- will follow and monitor BUTTON BUTTONHOLE MARKER recs and need for adjustment in EN [...] the ICU after he initially presented to [facility] ED on 01/19/25 due to inadvertent removal of his tracheostomy, pt was transferred to [facility] ICU for surgical evaluation, on arrival [...] and also left toes 1-4 arterial ulcers, BUTTON BUTTONHOLE MARKER remains following- yesterday noted recs to continue [...] able to be re-initiated as well as BUTTON BUTTONHOLE MARKER recs for possible diet advancement s/p MBSS. [...] weight was obtained) Usual Body Weight: (per [facility] review --> 10/08/23: 207#, 11/12: 208#, 08/28: 206#, 10/04/24: 192#, 10/15: 207# bedscale, 10/31: 200#, 11/28: 161#, 01/18: 142#) [place] Body Weight (lbs) (Calculated): 166 lbs [place] Body Weight (Kg) (Calculated): 75 kg % [place] Body Weight (Calculated): 78.2 % BMI (kg/m2) [...] determine [address] Contact: available via [email or web address] chat or *[phone] [facility] Anticoagulation Management Service (SAILAJA) Inpatient Warfarin Consult HPI: Jun Snyder is a 59 y.o. male admitted on 01/19/2025 for Complication of tracheostomy ([facility] ([facility]) [J95.00] Past Medical History: Diagnosis Date Acute renal failure (ARF) ([facility]) 10/19/2019 Anemia 12/30/2021 Calcification of abdominal aorta ([facility]) 10/08/202309/[address] abd Diverticulosis 10/08/2023 ESRD on hemodialysis ([facility]) ([facility]) 10/26/2019 Hemodialysis patient ([facility]) ([facility]) HTN (hypertension) 12/01/2022 Hypertension IgA nephropathy IgA [...] dose accordingly 3. Will facilitate f/u at [facility] upon discharge Fatuma Odonnell RPh, PharmD [facility] is available daily [phone] via [employer]. If no response on [employer] Chat then please page [phone]. ICU Progress Note Name: Jun Snyder : 1965(59 y.o.) Date: 01/24/25 Team: MICU Attending: Dr. Higgins Subjective: Hospital Summary: Mr Snyder is a 59 year old male who presented to [facility] 01/19 after inadvertent removal of his tracheostomy. He was transferred to [facility] ICU for surgical evaluation. On arrival [...] Resp (!) 10 (01/24/25) SpO2 98 % (04/30/25 0000) Weight 58.9 kg (129 lb 13.6 oz) (01/19/25 0657) BMI Body mass index is 18.63 kg/m . I/O: 01/23 07 - 01/24 0659 In: 4496 [I.V.:410] Out: [...] Normal [] Scar/Lesion/Mass Inspection of teeth/lips/gums Dentition: [][place] Teeth []Dentures Lips/Gums: []Intact []Lesion Present Mucosa: [x][place] []Moist [x]Dry Neck: External Appearance Overall Appearance: [...] last 24 hours- BMP: Recent Labs 01/22/2541801/23/2542901/24/25 0429 NA 132* 140 139 K 4.4 [...] 19.4* ABGs: No results for input(s): "PHART", "AHF5JOJ", "PO2ART", "MNP6CYN", "SO2ART", "P5XBRQUS" in the last 72 hours. Lactic Acid: [...] post scope if stable can transfer to [facility] tomorrow Code Status: Full Code Disposition: Remain in ICU Time spent preparing to see the patient, obtaining/reviewing separately obtained history, completing an appropriate medical examination of the patient, ordering medications/tests/procedures, documenting clinical information on the EMR, and/or coordinating care is a subsequent visit: 35 minutes (Level II). Darryn Higgins MD Pulmonary and Critical Care Medicine Attending Pager #[phone] [facility] Nephrology Progress Note Mr. Jun Snyder is [...] status and labs. Please message me through [email or web address] chat with any questions or concerns. Wellington Nicole MD 01/23/2025 5:03 PM [facility] [address], [address] [place] [address] Office: [phone] Images from the original note were not included. Speech-Language Pathology SPEECH LANGUAGE PATHOLOGY [facility] Dysphagia Treatment Note Patient Name: Jun Snyder Evaluation Date: 01/23/2025 Date of : 1965 Admission Date: 01/19/2025 2:13 AM Age: 59 y.o. Room/Bed: T3321/T3321 A Subjective Patient alert and cooperative. Seen [...] Start: 01/19/25 Expected End: 02/02/25 Therapy Time BUTTON BUTTONHOLE MARKER Individual Minutes Time In: 1315 Time Out: 1330 Minutes: 15 FRANKLIN Singh Images from the original note were not included. [facility] - Infectious Diseases Advanced Practice [...] 01/22 A baumannii screen: in process Previous ([facility]) 01/02- sacral wound cx- E faecalis (Amp-S), [...] be of moderate complexity. Mikala MORAN PA-C [facility] Infectious Disease Images from the original note [...] last 7 days Lab Units 01/23/2542901/22/2541801/21/25 0243 MAGNESIUM mg/dL 2.1 2.6 2.5 Results [...] Active Problem List Diagnosis Anemia Paroxysmal A-fib ([facility]) ([facility]) HTN (hypertension) ESRD on hemodialysis ([facility]) ([facility]) IgA nephropathy determined by biopsy of kidney Diverticulosis Nonrheumatic aortic valve stenosis Calcification of abdominal aorta ([facility]) Missed vaccination due to patient refusal Tobacco abuse Alcohol use disorder in remission Atrial flutter, unspecified type ([facility]) RSV (acute bronchiolitis due to respiratory syncytial virus) Aortic stenosis Upper GI bleed S/P AVR Acute hypoxic respiratory failure ([facility]) Acute encephalopathy Pneumoperitoneum Gastric ulceration Severe malnutrition ([facility]) ([facility]) Pleural effusion Peritonitis due to fungus ([facility]) History of abdominal surgery Leg DVT (deep venous thromboembolism), acute, left ([facility]) 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, 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) Tracheostomy dependence ([facility]) Leukocytosis Decubitus ulcer of sacral region, unstageable ([facility]) Pneumonia of both lungs due to methicillin susceptible Staphylococcus aureus (MSSA) ([facility]) Sacral osteomyelitis (CMS/HCC) (HCC) Acute respiratory failure with hypoxia ([facility]) [J96.01] Tracheostomy care ([facility]) [Z43.0] 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[facility]) director long term care (current) use of antibiotics Complication of tracheostomy (CMS/HCC) ([facility]) BRBPR (bright red blood per rectum) I have personally performed a face to face diagnostic evaluation on this patient. I have reviewed and agree with the care plan as documented above by my MAKEUP SALES CONSULTANT/PA-C. I personally discussed the review of systems [...] []SW/TCC []Other Total Care Time (combined between MAKEUP SALES CONSULTANT/PA-C and myself) throughout the day today was >= 35 minutes (including chart/data review/analysis, care coordination, and [id number]-[id number] encounter), and was spent discussing/counseling the patient/family regarding the care plan for this patient. I examined the patient independently. I reviewed relevant data myself and may have also done so in the context of team rounds. A full chart review was performed. Ivett Buckley MD Division of Trauma Department of Surgery [facility] Images from the original note [...] sodium chloride 0.9 % 100 mL IVPB (Add-Leroy), 3,000 mg, IntraVENous, q12h, Steve Lassiter MD, [...] 5 mg, IntraVENous, q6h PRN, Sangeeta Reyes, sodium chloride 0.9 % [...] +scattered ecchymoses Neuro: nonfocal Labs/Studies reviewed in [facility] ASSESSMENT/PLAN: GIB - Hematochezia Chronic Anticoagulation -h/o [...] 59 year old male who presented to [facility] 01/19 after inadvertent removal of his tracheostomy. He was transferred to [facility] ICU for surgical evaluation. On arrival [...] Normal [] Scar/Lesion/Mass Inspection of teeth/lips/gums Dentition: [][place] Teeth []Dentures Lips/Gums: []Intact []Lesion Present Mucosa: [][place] []Moist []Dry Neck: External Appearance Overall Appearance: [...] 18.5* ABGs: No results for input(s): "PHART", "LYJ7CKC", "PO2ART", "XTJ6KHR", "SO2ART", "W9TFKOCP" in the last 72 hours. Lactic Acid: [...] Principal Problem: Complication of tracheostomy (CMS/HCC) ([facility]) Active Problems: Severe malnutrition (CMS/HCC) ([facility]) GI Bleed, worsened by Warfarin Non-bleeding duodenal [...] setting of GI bleed Disposition: Transfer to [facility] Cosigned by Darryn Higgins MD at [...] Pulmonary and Critical Care Medicine Attending Pager #[phone] [facility] Respiratory Care Department Progress Note As [...] Respiratory in the care of this patient, [facility] Progress Note Mr. Jun Snyder is [...] status and labs. Please message me through [email or web address] chat with any questions or concerns. Wellington Nicole MD 01/22/2025 3:30 PM [facility] [address] [place] [address], [address] [place] [id number] Office: [phone] Images from the original note were not included. [facility] - Infectious Diseases Advanced Practice [...] (98.4 F) -- 97 17 99 % 01/22/25826 -- -- -- -- -- 97 % [...] be of moderate complexity. Mikala MORAN PA-C [facility] Infectious Disease Speech-Language Pathology Spoke with the RN. Patient remains decanulated and doing well on Room Air. Patient is currently NPO for GI. Will defer dysphagia plan of care until patient is cleared to resume TF or a PO diet. Christina Limon MS, CCC/BUTTON BUTTONHOLE MARKER Images from the original note were not [...] sodium chloride 0.9 % 100 mL IVPB (Add-Leroy), 3,000 mg, IntraVENous, q12h, Steve Lassiter MD, [...] 01/21/25 0243 01/21/25 0908 01/21/25 1452 01/21/258 01/22/259 WBC 10.1 9.2 -- -- 10.6 RBC [...] -- 8.8* CMP: Recent Labs 01/20/25 0514 01/21/2524201/22/25 0419 NA 135* 135* 132* K 4.8 4.3 4.4 CL 98 96* 94* CO2 BUN 91* 46* 53* CREATININE 4.31* 2.99* 4.18* GLUCOSE 68* 60* 70* CALCIUM 9.2 9.9 9.8 PROT -- -- 7.6 BILITOT -- -- 0.9 ALKPHOS -- -- 274* AST -- -- 51* ALT -- -- 44* PT/INR: Recent Labs 01/21/25145101/21/252347 INR 7.9* 8.1* IR Embolization 10/14/2024 IMPRESSION: [...] 10/12/24, Coumadin, last dose suspected 01/18/25 at [facility] Stage V sacral wound Necrotic left toes [...] Lab Units 01/22/25 04101/21/25 0243 01/20/25 0514 SODIUM mmol/L 132* 135* [...] per primary - will be discussed with Dr Ina Delacruz, DENIA - SAFETY INVESTIGATOR/CAUSE ANALYST 01/22/25 7:33 AM Cosigned by Ivett Buckley [...] (HCC) Acute respiratory failure with hypoxia ([facility]) [J96.01] Tracheostomy care ([facility]) [Z43.0] 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HCC) director long term care (current) use of antibiotics Complication of tracheostomy (CMS/HCC) ([facility]) I personally supervised the resident in the [...] of Trauma Department of Surgery [facility] ICU Progress Note Name: Jun Snyder : 1965(59 y.o.) Date: 01/22/25 Team: MICU Attending: Dr. Higgins Subjective: Hospital Summary: Mr Snyder is a 59 year old male who presented to [facility] 01/19 after inadvertent removal of his tracheostomy. He was transferred to [facility] ICU for surgical evaluation. On arrival [...] Normal [] Scar/Lesion/Mass Inspection of teeth/lips/gums Dentition: [][place] Teeth []Dentures Lips/Gums: []Intact []Lesion Present Mucosa: [x][place] []Moist [x]Dry Neck: External Appearance Overall Appearance: [...] 18.6* ABGs: No results for input(s): "PHART", "ADC6BDQ", "PO2ART", "QKO4QNY", "SO2ART", "D8JBCJWD" in the last 72 hours. Lactic Acid: [...] Pulmonary and Critical Care Medicine Attending Pager #[phone] [facility] Progress Note SUBJECTIVE: Jun Snyder [...] sodium chloride 0.9 % 100 mL IVPB (Add-Leroy), 3,000 mg, IntraVENous, q12h, Steve Lassiter MD, Stopped at 01/21/25 0441 collagenase 250 UNIT/GM ointment, , Topical, PRN, Steev Lassiter MD, Given at 01/21/25 1339 collagenase [...] Problem List Diagnosis Date Noted Severe malnutrition ([facility]) ([facility]) 01/19/2025 Complication of tracheostomy ([facility]) ([facility]) 01/19/2025 director long term care (current) use of antibiotics 01/12/2025 Acute respiratory failure with hypoxia ([facility]) [J96.01] 01/08/2025 Tracheostomy care ([facility]) [Z43.0] 01/08/2025 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[facility]) 01/08/2025 Sacral osteomyelitis ([facility]) ([facility]) 01/03/2025 Pneumonia of both lungs due to methicillin susceptible Staphylococcus aureus (MSSA) ([facility]) 01/01/2025 Leukocytosis 12/30/2024 Decubitus ulcer of sacral region, unstageable ([facility]) 12/30/2024 Peritonitis due to fungus ([facility]) 11/30/2024 History of abdominal surgery 11/30/2024 Leg DVT (deep venous thromboembolism), acute, left ([facility]) 11/30/2024 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, 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 of skin ([facility]) 11/30/2024 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 Pleural effusion 11/28/2024 Gastric ulceration 2024 Atrial flutter, unspecified type ([facility]) 10/03/2024 RSV (acute bronchiolitis due to respiratory syncytial virus) 10/03/2024 Diverticulosis 10/08/2023 Nonrheumatic aortic valve stenosis 10/08/2023 Calcification of abdominal aorta ([facility]) 10/08/2023 Missed vaccination due to patient refusal 10/08/2023 Tobacco abuse 10/08/2023 Alcohol use disorder in remission 10/08/2023 Paroxysmal A-fib ([facility]) ([facility]) 08/18/2023 HTN (hypertension) 12/01/2022 ESRD on hemodialysis ([facility]) ([facility]) 10/26/2019 IgA nephropathy determined by biopsy of kidney 10/26/2019 Aortic stenosis 10/03/2024 Upper GI bleed 10/03/2024 S/P AVR 10/03/2024 Acute hypoxic respiratory failure ([facility]) 10/03/2024 Acute encephalopathy 10/03/2024 Pneumoperitoneum 10/03/2024 Anemia 12/30/2021 ASSESSMENT/PLAN: ESRD. HD MWF schedule Anemia. PRBC if Hb less than 7 GI bleed. Gastroenterology following Cindy Patel MD 01/21/2025 4:54 PM Family Communication Number Called: [phone] Name of Designated Family Cone Sewer: Omar son I spoke with the individual listed above Family Cone Sewer Updated on the Following: - Updated Omar [...] sodium chloride 0.9 % 100 mL IVPB (Add-Leroy), 3,000 mg, IntraVENous, q12h, Steve Lassiter MD, [...] solution 3 mL, 3 mL, Nebulization, q8h, tSeve Lassiter MD, 3 mL at 01/20/25 2333 [...] 10/12/24, Coumadin, last dose suspected 01/18/25 at [facility] Acute Right occipital ICH- 10/22/24 ESRD [...] proceed with planned procedure. Parth VASQUEZ Gastroenterology [facility] Progress Note SUBJECTIVE: Jun Snyder [...] sodium chloride 0.9 % 100 mL IVPB (Add-Leroy), 3,000 mg, IntraVENous, q12h, Steve Lassiter MD, [...] Problem List Diagnosis Date Noted Severe malnutrition ([facility]) ([facility]) 01/19/2025 Complication of tracheostomy ([facility]) ([facility]) 01/19/2025 director long term care (current) use of antibiotics 01/12/2025 Acute respiratory failure with hypoxia ([facility]) [J96.01] 01/08/2025 Tracheostomy care ([facility]) [Z43.0] 01/08/2025 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[facility]) 01/08/2025 Sacral osteomyelitis ([facility]) ([facility]) 01/03/2025 Pneumonia of both lungs due to methicillin susceptible Staphylococcus aureus (MSSA) ([facility]) 01/01/2025 Leukocytosis 12/30/2024 Decubitus ulcer of sacral region, unstageable ([facility]) 12/30/2024 Peritonitis due to fungus ([facility]) 11/30/2024 History of abdominal surgery 11/30/2024 Leg DVT (deep venous thromboembolism), acute, left ([facility]) 11/30/2024 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, 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 of skin ([facility]) 11/30/2024 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 Pleural effusion 11/28/2024 Gastric ulceration 2024 Atrial flutter, unspecified type ([facility]) 10/03/2024 RSV (acute bronchiolitis due to respiratory syncytial virus) 10/03/2024 Diverticulosis 10/08/2023 Nonrheumatic aortic valve stenosis 10/08/2023 Calcification of abdominal aorta ([facility]) 10/08/2023 Missed vaccination due to patient refusal 10/08/2023 Tobacco abuse 10/08/2023 Alcohol use disorder in remission 10/08/2023 Paroxysmal A-fib ([facility]) (HCC) 08/18/2023 HTN (hypertension) 12/01/2022 ESRD on hemodialysis ([facility]) ([facility]) 10/26/2019 IgA nephropathy determined by biopsy of kidney 10/26/2019 Aortic stenosis 10/03/2024 Upper GI bleed 10/03/2024 S/P AVR 10/03/2024 Acute hypoxic respiratory failure ([facility]) 10/03/2024 Acute encephalopathy 10/03/2024 Pneumoperitoneum 10/03/2024 Anemia 12/30/2021 ASSESSMENT/PLAN: ESRD. HD MWF schedule. HD today. See orders Anemia. PRBC if Hb less than 7 Later in the day dialysis had to be discontinued a little early due to GI bleed and other events. Will reassess tomorrow Cindy Patel MD 01/20/2025 5:52 PM Images from the original note were not included. OCCUPATIONAL THERAPY [facility] Initial Evaluation Name/MRN: Jair Snyder ([id number]) Evaluation Date: 01/20/2025 Date of : 1965 Admission Date: 01/19/2025 2:13 AM Age: 59 y.o. Room/Bed: [facility] A Discharge Recommendation: Retirement Facility Other: DME TBD Assessment IMPRESSION: Pt [...] planned discharge. Admitting Diagnosis: Complication of tracheostomy ([facility]) ([facility]) Performance Deficits /Impairments: Decreased Functional Mobility, Decreased [...] Diagnosis Date Acute renal failure (ARF) ([facility]) 10/19/2019 Anemia 12/30/2021 Calcification of abdominal aorta ([facility]) 10/08/202309/[address] abd Diverticulosis 10/08/2023 ESRD on hemodialysis ([facility]) ([facility]) 10/26/2019 Hemodialysis patient ([facility]) ([facility]) HTN (hypertension) 12/01/2022 Hypertension IgA nephropathy IgA nephropathy determined by biopsy of kidney 10/26/2019 Missed vaccination due to patient refusal 10/08/2023 Has a number of non-scientific based beliefs which interfere with his understanding and acceptance of the medical benefit of vaccination. Nonrheumatic aortic valve stenosis 10/08/2023 Paroxysmal A-fib ([facility]) ([facility]) 08/18/2023 Tobacco abuse 10/08/2023 Past Surgical History: Past Surgical History: Procedure Laterality Date APPENDECTOMY CARDIAC CATHETERIZATION N/A 10/09/2024 Performed by Bob Watson MD at [facility] Cardiac Cath/EP Lab CARDIAC CATHETERIZATION Bilateral 11/01/2024 Performed by Bob Watson MD at [facility] Cardiac Cath/EP Lab CARDIAC CATHETERIZATION N/A 11/01/2024 Performed by Bob Watson MD at [facility] Cardiac Cath/EP Lab FISTULAGRAM (HISTORICAL) Left 09/15/2021 LEFT UPPER ARM HX AV FISTULA CREATION IR EMBOLIZATION 10/14/2024 IR EMBOLIZATION 10/14/2024 [facility] SPECIAL PROCEDURES IR FISTULAGRAM 08/07/2022 IR FISTULAGRAM 08/07/2022 [facility] IR IMAGING TONSILLECTOMY (HISTORICAL) Admission Diagnosis: Patient Active Problem List Diagnosis Date Noted Severe malnutrition ([facility]) ([facility]) 01/19/2025 Complication of tracheostomy ([facility]) ([facility]) 01/19/2025 director long term care (current) use of antibiotics 01/12/2025 Acute respiratory failure with hypoxia ([facility]) [J96.01] 01/08/2025 Tracheostomy care ([facility]) [Z43.0] 01/08/2025 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[facility]) 01/08/2025 Sacral osteomyelitis ([facility]) ([facility]) 01/03/2025 Pneumonia of both lungs due to methicillin susceptible Staphylococcus aureus (MSSA) ([facility]) 01/01/2025 Leukocytosis 12/30/2024 Decubitus ulcer of sacral region, unstageable ([facility]) 12/30/2024 Peritonitis due to fungus ([facility]) 11/30/2024 History of abdominal surgery 11/30/2024 Leg DVT (deep venous thromboembolism), acute, left ([facility]) 11/30/2024 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, 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 of skin ([facility]) 11/30/2024 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 Pleural effusion 11/28/2024 Gastric ulceration 2024 Atrial flutter, unspecified type ([facility]) 10/03/2024 RSV (acute bronchiolitis due to respiratory syncytial virus) 10/03/2024 Diverticulosis 10/08/2023 Nonrheumatic aortic valve stenosis 10/08/2023 Calcification of abdominal aorta ([facility]) 10/08/2023 Missed vaccination due to patient refusal 10/08/2023 Tobacco abuse 10/08/2023 Alcohol use disorder in remission 10/08/2023 Paroxysmal A-fib ([facility]) ([facility]) 08/18/2023 HTN (hypertension) 12/01/2022 ESRD on hemodialysis ([facility]) ([facility]) 10/26/2019 IgA nephropathy determined by biopsy of kidney 10/26/2019 Aortic stenosis 10/03/2024 Upper GI bleed 10/03/2024 S/P AVR 10/03/2024 Acute hypoxic respiratory failure ([facility]) 10/03/2024 Acute encephalopathy 10/03/2024 Pneumoperitoneum 10/03/2024 Anemia [...] events, decreased short term memory, and decreased director long term care memory - Safety judgement: decreased awareness of [...] Poor historian. Per pt he came from [facility]. Pt unable to recall living situation prior to [facility], states "I've been in and [...] of Care supervision is transferred to a [facility] Services Occupational Therapist. Goals and/or treatment [...] diverticulosis, IgA nephropathy, severe that presented to [facility] ED from a facility due to trach dislodgement. Per patient, was trying to disconnect his vent to transfer to another room but accidentally pulled out his tracheostomy. This event happened approximately 45 minutes before ED arrival. ED attempted to place tracheostomy tube back but were unsuccessful. Decision was made to transfer patient to [facility] ICU for further airway management and determine if replacement tracheostomy is needed. Was observed at [facility] ICU initially and transferred to [facility] on 01/20. Noted removal of trach. 01/20: [...] Diagnosis Date Acute renal failure (ARF) ([facility]) 10/19/2019 Anemia 12/30/2021 Calcification of abdominal aorta ([facility]) 10/08/202309/[address] abd Diverticulosis 10/08/2023 ESRD on hemodialysis ([facility]) ([facility]) 10/26/2019 Hemodialysis patient ([facility]) ([facility]) HTN (hypertension) 12/01/2022 Hypertension IgA nephropathy IgA nephropathy determined by biopsy of kidney 10/26/2019 Missed vaccination due to patient refusal 10/08/2023 Has a number of non-scientific based beliefs which interfere with his understanding and acceptance of the medical benefit of vaccination. Nonrheumatic aortic valve stenosis 10/08/2023 Paroxysmal A-fib ([facility] ([facility]) 08/18/2023 Tobacco abuse 10/08/2023 LABS: CBC: Recent [...] and limit nighttime disturbances - DVT prophylaxis: [facility] 02-01-2025 Note [facility] 02-01-2025 Hospital course Narrative Discharge Summary Jun Snyder : 1965 ADMIT DATE: 01/19/2025 DISCHARGE DATE: 02/01/2025 PRIMARY CARE PHYSICIAN: Leilani Troncoso VISIT STATUS: Admission CODE STATUS: Full Code DISCHARGE DIAGNOSES: Principal Problem: Complication of tracheostomy (CMS/HCC) (HCC) Active Problems: Severe malnutrition (CMS/HCC) (HCC) BRBPR (bright red blood per rectum) HOSPITAL COURSE: Jun Snyder is a 59 y.o. male who who presented to [facility] 01/19 after inadvertent removal of his tracheostomy. He was transferred to [facility] ICU for surgical evaluation. On arrival [...] HD successfully. hemodynamically stable. Transferred out to [facility] 01/27 ID following for sacral osteomyelitis, s/p wound debridement to bone on 01/02, cultures grew E faecalis and Clostridium, continue with renally dosed ampicillin sulbactam for 6 weeks course through 02/13/2025, needs tunneled line, status post IR CVC tunneled line on 01/29 Nephrology following, on dialysis [facility] [employer] [facility] following PT/OT recommends SNF Patient will be [...] Diagnosis Date Acute renal failure (ARF) ([facility]) 10/19/2019 Anemia 12/30/2021 Calcification of abdominal aorta ([facility]) 10/08/202309/[address] abd Diverticulosis 10/08/2023 ESRD on hemodialysis ([facility]) ([facility]) 10/26/2019 Hemodialysis patient ([facility]) ([facility]) HTN (hypertension) 12/01/2022 Hypertension IgA nephropathy IgA nephropathy determined by biopsy of kidney 10/26/2019 Missed vaccination due to patient refusal 10/08/2023 Has a number of non-scientific based beliefs which interfere with his understanding and acceptance of the medical benefit of vaccination. Nonrheumatic aortic valve stenosis 10/08/2023 Paroxysmal A-fib ([facility] ([facility]) 08/18/2023 Tobacco abuse 10/08/2023 Adult diet Dysphagia [...] by ID -S/p tunneled central line placement -[facility] follow, dysphagia diet -PT OT DC recommend SNF SIGNIFICANT DIAGNOSTIC STUDIES: IR cvc tunneled central line placement [[id number]] Collected: 01/30/251436 Order Status: Completed Updated: 01/30/25 143 Narrative: Patient Name: JUN SNYDER : 1965 [...] FL modified barium with video and speech [[id number]] Collected: 01/25/25 1328 Order Status: Completed Updated: [...] 3:12 PM EDT XR chest 1 view [[id number]] Collected: 01/24/25157 Order Status: Completed Updated: 01/24/25199 Narrative: Patient Name: JUN SNYDER : 1965 [facility]#: [id number] Exam Date/Time: 01/24/2025 01:45 Procedure: XR CHEST [...] pelvis angiogram w and/or wo IV contrast [[id number]] Collected: 01/20/25 184 Order Status: Completed Updated: 01/20/251902 Narrative: Patient Name: JUN SNYDER : 1965 [facility]#: [id number] Exam Date/Time: 01/20/2025 17:02 Procedure: CT ABDOMEN [...] 7:02 PM EDT XR chest 1 view [[id number]] Collected: 01/19/25614 Order Status: Completed Updated: 01/19/25616 [...] 6:16 AM EDT XR chest 1 view [[id number]] Collected: 01/18/25 1242 Order Status: Completed Updated: [...] days. CONTINUE taking these medications epoetin rowan-epbx 94618 UNIT/ML injection Commonly known as: Retacrit Inject [...] Complexity: follow up within 7-14 calendar days (66121) [] Severe Complexity: follow up within 7 calendar days (33683) FOLLOW UP TESTING, PENDING RESULTS OR REFERRALS AT TRANSITIONAL CARE VISIT: [] Yes [] No PENDING STUDIES: DISPOSITION: Skilled Facility FACILITY/HOME CARE AGENCY NAME: Follow up with [facility] [address] [place] [id number] Gurdeep Cruz MD [address] [place] [address], [address] [facility] [address] Schedule an appointment as soon as [...] 02/01/2025, 10:29 AM documented in this encounter [facility] 01-29-2025 Telephone encount er Note Chart reviewed, patient appears to be sensitive to warfarin at this time and I wouldn't be able to guarantee INR remains less than 3, so opted to hold dose today. I canceled order. [facility] [employer] Work Phone: 01-29-2025 Miscellaneous Notes Formattin g of this note might be different from the original. Chart reviewed, patient appears to be sensitive to warfarin at this time and I wouldn't be able to guarantee INR remains less than 3, so opted to hold dose today. I canceled order. SWEETIE Singh with [facility] [employer] called to inform [facility] patient is scheduled to have a tunnel cath line tomorrow and Dr. Lira is inquiring if patient should hold his warfarin 0.[address] Lira does not want INR to go above to 3.0 tomorrow. Staffed with Neelam, PharmD, BCACP, CACP, she will cancel patient's warfarin dose tomorrow and [facility] will make adjustments as needed tomorrow. documented in this encounter [facility] 01-29-2025 Telephone encount er Note SWEETIE Singh with [facility] called to inform [facility] patient is scheduled to have a tunnel cath line tomorrow and Dr. Lira is inquiring if patient should hold his warfarin 0.[address] Lira does not want INR to go above to 3.0 tomorrow. Staffed with Natali iRchter, BCACP, CACP, she will cancel patient's warfarin dose tomorrow and [facility] will make adjustments as needed tomorrow. [facility] 01-26-2025 Hospital Discharg e instructions Kristine [...] 10/09/2024 Performed by Bob Watson MD at [facility] Cardiac Cath/EP Lab CARDIAC CATHETERIZATION Bilateral 11/01/2024 Performed by Bob Watson MD at [facility] Cardiac Cath/EP Lab CARDIAC CATHETERIZATION N/A 11/01/2024 Performed by Bob Watson MD at [facility] Cardiac Cath/EP Lab COLONOSCOPY N/A 01/24/2025 Performed by Chadd Davis MD at [facility] ENDOSCOPY FISTULAGRAM (HISTORICAL) Left 09/15/2021 LEFT UPPER ARM HX AV FISTULA CREATION IR EMBOLIZATION 10/14/2024 IR EMBOLIZATION 10/14/2024 [facility] SPECIAL PROCEDURES IR FISTULAGRAM 08/07/2022 IR [...] (HCC) Acute respiratory failure with hypoxia ([facility]) [J96.01] Tracheostomy care ([facility]) [Z43.0] 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[facility]) half-way (current) use of antibiotics Anemia Aortic stenosis Upper GI bleed S/P AVR Acute hypoxic respiratory failure ([facility]) Acute encephalopathy Pneumoperitoneum BRBPR (bright red blood [...] Total assistance Toileting Total assistance Feeding Independent Roastmaster Independent Med Delivery yes Wound Care Documentation and Therapy: Wound/Incision 11/13/24 Pressure Injury Sacrum (Active) Wound Image 01/19/25 0500 Site Assessment [place];Red 01/26/25 1200 [place]naz-Wound Assessment Intact 01/26/25 0355 [...] all that are sent with patient): emmanuel IPTT SIGNATURE: MANAGEMENT/SOCIAL WORK SECTION Inpatient Status Date: 01/21/25 Discharging to Facility/ Agency Name: [facility] Address: [address] [place] [address] Fax: Dialysis Facility (if applicable) Name: Address: Dialysis Schedule: [facility] Phone: Fax: Welder Setter Electron Beam Machine/Oracle Database Developer signature: ICIAN SECTION Name: Jun Snyder Prognosis: fair Condition at Discharge: stable Rehab Potential (if transferring to Rehab): fair Recommended Labs or Other Treatments After Discharge: cbc,cmp, PT/INR for warfarin, C/W Ampicillin-Sulbactam till 02/13, F/U with ID The individual is being admitted to a nursing facility directly from an [facility] or a unit of a reading hospital that is not operated by or licensed by [facility] under section 5119.14 or 5160-3-15.1 5 The individual requires the level of services provided by a nursing facility for the condition for which he or she was treated in the hospital and, Physician Certification: I certify the above information and transfer of Jun Snyder is necessary for the continuing treatment of the diagnosis listed and that he requires senior care facility for less than 30 days. Update Admission H&P: No change in H&P PHYSICIAN SIGNATURE: documented in this encounter [facility] 01-24-2025 Procedure note Images from the [...] Safety: The patient was placed on a quality assurance monitor chassis and vital signs, pulse oximetry, and level [...] of the procedure. documented in this encounter [facility] 01-23-2025 Consult note Associated Order (s): INPATIENT CONSULT TO WOUND CARE PROVIDERS Images from the original note were not included. [facility] Wound Care Re-CONSULT Note Jun Snyder [...] diverticulosis, IgA nephropathy, severe that presented to [facility] ED from a facility due [...] Diagnosis Date Acute renal failure (ARF) ([facility]) 10/19/2019 Anemia 12/30/2021 Calcification of abdominal aorta ([facility]) 10/08/202309/[address] abd Diverticulosis 10/08/2023 ESRD on hemodialysis ([facility] ([facility]) 10/26/2019 Hemodialysis patient ([facility]) ([facility]) HTN (hypertension) 12/01/2022 Hypertension IgA nephropathy IgA nephropathy determined by biopsy of kidney 10/26/2019 Missed vaccination due to patient refusal 10/08/2023 Has a number of non-scientific based beliefs which interfere with his understanding and acceptance of the medical benefit of vaccination. Nonrheumatic aortic valve stenosis 10/08/2023 Paroxysmal A-fib ([facility] ([facility]) 08/18/2023 Tobacco abuse 10/08/2023 PAST SURGICAL HISTORY Past Surgical History: Procedure Laterality Date APPENDECTOMY CARDIAC CATHETERIZATION N/A 10/09/2024 Performed by Bob Watson MD at [facility] Cardiac Cath/EP Lab CARDIAC CATHETERIZATION Bilateral 11/01/2024 Performed by Bob Watson MD at [facility] Cardiac Cath/EP Lab CARDIAC CATHETERIZATION N/A 11/01/2024 Performed by Bob Watson MD at [facility] Cardiac Cath/EP Lab FISTULAGRAM (HISTORICAL) Left 09/15/2021 LEFT UPPER ARM HX AV FISTULA CREATION IR EMBOLIZATION 10/14/2024 IR EMBOLIZATION 10/14/2024 [facility] SPECIAL PROCEDURES IR FISTULAGRAM 08/07/2022 IR FISTULAGRAM 08/07/2022 [facility] IR IMAGING TONSILLECTOMY (HISTORICAL) FAMILY [...] Medication Sig Dispense Refill epoetin rowan-epbx (Retacrit) 72940 UNIT/ML injection Inject 0.79 mL (7,900 Units) [...] apply Betadine and allow to dry, leave INFANTRY ASSAULTMAN daily and PRN -Recommend PVRs for circulation check Nutritional support Wound Care to follow Recommend to follow up at [facility] Outpatient wound care center after hospital discharge. [...] Gill DO at 01/29/2025 4:37 PM EDT [facility] ([facility]) Inpatient Warfarin Consult HPI: Jun Snyder is a 59 y.o. male admitted on 01/19/2025 for Complication of tracheostomy ([facility]) ([facility]) [J95.00] Past Medical History: Diagnosis Date Acute renal failure (ARF) ([facility]) 10/19/2019 Anemia 12/30/2021 Calcification of abdominal aorta ([facility]) 10/08/202309/[address] abd Diverticulosis 10/08/2023 ESRD on hemodialysis ([facility]) ([facility]) 10/26/2019 Hemodialysis patient ([facility]) ([facility]) HTN (hypertension) 12/01/2022 Hypertension IgA nephropathy IgA nephropathy determined by biopsy of kidney 10/26/2019 Missed vaccination due to patient refusal 10/08/2023 Has a number of non-scientific based beliefs which interfere with his understanding and acceptance of the medical benefit of vaccination. Nonrheumatic aortic valve stenosis 10/08/2023 Paroxysmal A-fib ([facility]) ([facility]) 08/18/2023 Tobacco abuse 10/08/2023 Patient is on [...] and plan for colonoscopy tomorrow, please notify [facility] when able to resume anticoagulation. 2. Monitor for s/s of bleeding and drug interactions. Will adjust dose accordingly 3. Will facilitate f/u at [facility] upon discharge Fatuma Odonnell RPh, PharmD [facility] is available daily [phone] via [employer] Chat. If no response on Epic Chat then please page [phone]. Images from the original note were not [...] AV replacement Supratherapeutic INR - [employer] Project Administrator valve in 09/2024 - coumadin held due [...] Palliative Care IDT members involved: Palliative Care Oracle Database Developer Discussed the plan of care with [...] to have bile peritonitis" 11/28/24: transferred to [facility] He ended up developing sacral ulcer and osteomyelitis at [facility]. He then ended up dislodging his tracheostomy, and was brought to [facility] ED for further care. Palliative care [...] child(rocky) Living status: SNF Work history: unknown Brant status: unknown Sikhism annette: Non-Jainism ROS: See palliative care ROS/ESAS below; All other systems were reviewed and are negative. Martin Symptom Assessment Score Martin Score Pain Score (if non-verbal, add .FLACC [...] Diagnosis Date Acute renal failure (ARF) ([facility]) 10/19/2019 Anemia 12/30/2021 Calcification of abdominal aorta (HCC) 10/08/202309/[address] abd Diverticulosis 10/08/2023 ESRD on hemodialysis ([facility] ([facility]) 10/26/2019 Hemodialysis patient ([facility]) HTN (hypertension) 12/01/2022 Hypertension IgA nephropathy IgA [...] 10/09/2024 Performed by Bob Watson MD at [facility] Cardiac Cath/EP Lab CARDIAC CATHETERIZATION Bilateral 11/01/2024 Performed by Bob Watson MD at [facility] Cardiac Cath/EP Lab CARDIAC CATHETERIZATION N/A 11/01/2024 Performed by Bob Watson MD at [facility] Cardiac Cath/EP Lab FISTULAGRAM (HISTORICAL) Left 09/15/2021 LEFT UPPER ARM HX AV FISTULA CREATION IR EMBOLIZATION 10/14/2024 IR EMBOLIZATION 10/14/2024 [facility] SPECIAL PROCEDURES IR FISTULAGRAM 08/07/2022 IR [...] Transition Note Initiated: yes Tex Cotto MD [facility] Anticoagulation Management Service ([facility]) Inpatient Warfarin Consult HPI: Jun Snyder is a 59 y.o. male admitted on 01/19/2025 for Complication of tracheostomy ([facility] ([facility]) [J95.00] Past Medical History: Diagnosis Date Acute renal failure (ARF) ([facility]) 10/19/2019 Anemia 12/30/2021 Calcification of abdominal aorta ([facility]) 10/08/202309/[address] abd Diverticulosis 10/08/2023 ESRD on hemodialysis ([facility] ([facility]) 10/26/2019 Hemodialysis patient ([facility]) HTN (hypertension) 12/01/2022 Hypertension IgA nephropathy IgA nephropathy determined by biopsy of kidney 10/26/2019 Missed vaccination due to patient refusal 10/08/2023 Has a number of non-scientific based beliefs which interfere with his understanding and acceptance of the medical benefit of vaccination. Nonrheumatic aortic valve stenosis 10/08/2023 Paroxysmal A-fib ([facility] ([facility]) 08/18/2023 Tobacco abuse 10/08/2023 Patient is on [...] possible GIB and elevated INR, please notify [facility] when able to resume anticoagulation. 2. Monitor for s/s of bleeding and drug interactions. Will adjust dose accordingly 3. Will facilitate f/u at [facility] upon discharge Fatuma Odonnell RPh, PharmD [facility] is available daily [phone] via [employer] Chat. If no response on Epic Chat then please page [phone]. [facility] Anticoagulation Management Service ([facility]) Inpatient Warfarin Consult HPI: Jun Snyder is a 59 y.o. male admitted on 01/19/2025 for Complication of tracheostomy ([facility] ([facility]) [J95.00] Past Medical History: Diagnosis Date Acute renal failure (ARF) ([facility]) 10/19/2019 Anemia 12/30/2021 Calcification of abdominal aorta ([facility]) 10/08/202309/[address] abd Diverticulosis 10/08/2023 ESRD on hemodialysis ([facility] ([facility]) 10/26/2019 Hemodialysis patient ([facility] ([facility]) HTN (hypertension) 12/01/2022 Hypertension IgA nephropathy IgA nephropathy determined by biopsy of kidney 10/26/2019 Missed vaccination due to patient refusal 10/08/2023 Has a number of non-scientific based beliefs which interfere with his understanding and acceptance of the medical benefit of vaccination. Nonrheumatic aortic valve stenosis 10/08/2023 Paroxysmal A-fib ([facility]) ([facility]) 08/18/2023 Tobacco abuse 10/08/2023 Patient is on [...] admission. Holding warfarin for GIB, please notify [facility] when able to resume anticoagulation. 2. Monitor for s/s of bleeding and drug interactions. Will adjust dose accordingly 3. Will facilitate f/u at [facility] upon discharge Darryn Wagner RPh, PharmD [facility] is available daily [phone] via [employer]. If no response on [employer] Chat then please page [phone]. Associated Order(s): IP CONSULT TO GENERAL SURGERY [...] Diagnosis Date Acute renal failure (ARF) ([facility]) 10/19/2019 Anemia 12/30/2021 Calcification of abdominal aorta (HCC) 10/08/202309/[address] abd Diverticulosis 10/08/2023 ESRD on hemodialysis ([facility] ([facility]) 10/26/2019 Hemodialysis patient ([facility]) HTN (hypertension) 12/01/2022 Hypertension IgA nephropathy IgA nephropathy determined by biopsy of kidney 10/26/2019 Missed vaccination due to patient refusal 10/08/2023 Has a number of non-scientific based beliefs which interfere with his understanding and acceptance of the medical benefit of vaccination. Nonrheumatic aortic valve stenosis 10/08/2023 Paroxysmal A-fib ([facility]) ([facility]) 08/18/2023 Tobacco abuse 10/08/2023 Past Surgical History: Procedure Laterality Date APPENDECTOMY CARDIAC CATHETERIZATION N/A 10/09/2024 Performed by Bob Watson MD at [facility] Cardiac Cath/EP Lab CARDIAC CATHETERIZATION Bilateral 11/01/2024 Performed by Bob Watson MD at [facility] Cardiac Cath/EP Lab CARDIAC CATHETERIZATION N/A 11/01/2024 Performed by Bob Watson MD at [facility] Cardiac Cath/EP Lab FISTULAGRAM (HISTORICAL) Left 09/15/2021 LEFT UPPER ARM HX AV FISTULA CREATION IR EMBOLIZATION 10/14/2024 IR EMBOLIZATION 10/14/2024 [facility] SPECIAL PROCEDURES IR FISTULAGRAM 08/07/2022 IR FISTULAGRAM 08/07/2022 [facility] IR IMAGING TONSILLECTOMY (HISTORICAL) Medications Prior to Admission: Current Facility-Administered Medications Medication Dose Route Frequency Provider Last Rate Last Admin acetaminophen (Tylenol) tablet 1,000 mg 1,000 mg Oral q8h PRN Steve Lassiter MD 1,000 mg at 01/19/25 1540 ampicillin-sulbactam (Unasyn) 3,000 mg in sodium chloride 0.9 % 100 mL IVPB (Add-Leroy) 3,000 mg IntraVENous q12h Steve Lassiter MD [...] Needs: No Transportation Needs (01/18/2025) Received from [facility] Transportation Source Has lack of transportation kept you from medical appointments or from getting medications?: No Has lack of transportation kept you from meetings, work, or from getting things needed for daily living?: No Stress: No Stress Concern Present (01/18/2025) Received from [facility] Occupational Health - Occupational Stress Questionnaire Feeling of Stress : Not at all Social Connections: Patient Unable To Answer (12/01/2024) Received from [facility] Medical Social Connection and Isolation Panel [NHANES] Frequency of Communication with Friends and Family: Patient unable to answer Frequency of Social Gatherings with Friends and Family: Patient unable to answer Attends Sikhism Services: Patient unable to answer Active Member of Clubs or Organizations: Patient unable to answer Attends Club or Organization Meetings: Patient unable to answer Marital Status: Patient unable to answer Intimate Partner Violence: Patient Unable To Answer (11/28/2024) Received from [facility] Medical Domestic Abuse Assessment Do you feel safe in your relationships at home?: Unable to assess Physical Abuse: Unable to assess Verbal Abuse: Unable to assess Housing Stability: Patient Unable To Answer (12/01/2024) Received from [facility] Stability Vital Sign Unable to Pay for [...] LIPASE IMAGING: POCT glucose meter Performed by: [facility], [address] [place] [id number] CLIA ID: [id number] POCT glucose meter Performed by: [facility], [address] [place] [id number] CLIA ID: [id number] POCT glucose meter Performed by: [facility], [address] [place] [address] CLIA ID: [id number] POCT glucose meter Performed by: [facility], [address] [place] [address] CLIA ID: [id number] POCT glucose meter Performed by: [facility], [address] [place] [address] CLIA ID: [id number] POCT glucose meter Performed by: [facility], [address] [place] [id number] CLIA ID: [id number] ASSESSMENT AND PLAN: Jun Snyder is a [...] Brenton Goldstein MD General Surgery PGY-1 Pager #[phone] Cosigned by Tex Brush MD at 01/22/2025 6:07 AM EDT Associated attestation - Tex Brush MD - 01/22/2025 6:07 AM EDT ATTENDING ADDENDUM Active Diagnoses/Problems this Admission: Patient Active Problem List Diagnosis Anemia Paroxysmal A-fib (CMS/HCC) (HCC) HTN (hypertension) ESRD on hemodialysis (CMS/HCC) ([facility]) IgA nephropathy determined by biopsy of kidney Diverticulosis Nonrheumatic aortic valve stenosis Calcification of abdominal aorta ([facility]) Missed vaccination due to patient refusal Tobacco [...] foot, 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 of skin ([facility]) Tracheostomy dependence ([facility]) Leukocytosis Decubitus ulcer of sacral region, unstageable ([facility]) Pneumonia of both lungs due to methicillin susceptible Staphylococcus aureus (MSSA) ([facility]) Sacral osteomyelitis (CMS/HCC) ([facility]) Acute respiratory failure with hypoxia ([facility]) [J96.01] Tracheostomy care ([facility]) [Z43.0] 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[facility]) half-way (current) use of antibiotics Complication of tracheostomy (CMS/HCC) ([facility]) I personally supervised the resident physician in [...] of Trauma Department of Surgery [facility] Images from the original note [...] IgA nephropathy, severe who was admitted to [facility] 01/19 due to trach dislodgement. Since [...] Normal [] Scar/Lesion/Mass Inspection of teeth/lips/gums Dentition: [][place] Teeth []Dentures Lips/Gums: [x]Intact []Lesion Present Mucosa: [x][place] []Moist [x]Dry Neck: External Appearance Overall Appearance: [...] (HCC) Active Problems: Severe malnutrition (CMS/HCC) (HCC) Assessment: Rectal bleeding with concern for GIB [...] 2:43 PM I have personally performed a iimo-pg-pzzz diagnostic evaluation on this patient on date of service 01/21/2025. History, labs, imaging studies, and electronic medical record have been reviewed by me. This note documented by the [x]linen room houseperson []ARMIN reflects my history, exam, and medical decision making. I have reviewed and agree with the care plan. Changes were made in the orders as necessary. ROS documentation was reviewed and negative unless otherwise stated in HPI. Additional pertinent interval history, ROS, and physical exam findings: Mr Snyder is a 59 year old male who presented to [facility] 01/19 after inadvertent removal of his tracheostomy. He was transferred to [facility] ICU for surgical evaluation. 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 Per patient, was trying to disconnect his vent to transfer to another room but accidentally pulled out his tracheostomy. This event happened approximately 45 minutes before ED arrival. ED attempted to place tracheostomy tube back but were unsuccessful. Decision was made to transfer patient to [facility] ICU for further airway management and determine if replacement tracheostomy is needed. Patient was admitted to the MICU-01/19 where he was evaluated by general surgery for re-do tracheostomy and determined to be saturating appropriately on room air without need for re-placement. Patient was transferred out of the MICU for potential discharge back to he skilled nursing facility. The MICU is consulted now for [...] Diagnosis Date Acute renal failure (ARF) ([facility]) 10/19/2019 Anemia 12/30/2021 Calcification of abdominal aorta ([facility]) 10/08/202309/[address] abd Diverticulosis 10/08/2023 ESRD on hemodialysis ([facility]) ([facility]) 10/26/2019 Hemodialysis patient ([facility]) ([facility]) HTN (hypertension) 12/01/2022 Hypertension IgA nephropathy IgA nephropathy determined by biopsy of kidney 10/26/2019 Missed vaccination due to patient refusal 10/08/2023 Has a number of non-scientific based beliefs which interfere with his understanding and acceptance of the medical benefit of vaccination. Nonrheumatic aortic valve stenosis 10/08/2023 Paroxysmal A-fib ([facility]) ([facility]) 08/18/2023 Tobacco abuse 10/08/2023 Past Surgical History: Procedure Laterality Date APPENDECTOMY CARDIAC CATHETERIZATION N/A 10/09/2024 Performed by Bob Watson MD at [facility] Cardiac Cath/EP Lab CARDIAC CATHETERIZATION Bilateral 11/01/2024 Performed by Bob Watson MD at [facility] Cardiac Cath/EP Lab CARDIAC CATHETERIZATION N/A 11/01/2024 Performed by Bob Watson MD at [facility] Cardiac Cath/EP Lab FISTULAGRAM (HISTORICAL) Left 09/15/2021 LEFT UPPER ARM HX AV FISTULA CREATION IR EMBOLIZATION 10/14/2024 IR EMBOLIZATION 10/14/2024 [facility] SPECIAL PROCEDURES IR FISTULAGRAM 08/07/2022 IR [...] Needs: No Transportation Needs (01/18/2025) Received from [facility] Transportation Source Has lack of transportation kept you from medical appointments or from getting medications?: No Has lack of transportation kept you from meetings, work, or from getting things needed for daily living?: No Physical Activity: Not on file Stress: No Stress Concern Present (01/18/2025) Received from [facility] Occupational [facility] - Occupational Stress Questionnaire Feeling of Stress : Not at all Social Connections: Patient Unable To Answer (12/01/2024) Received from [facility] Medical Social Connection and Isolation Panel [NHANES] Frequency of Communication with Friends and Family: Patient unable to answer Frequency of Social Gatherings with Friends and Family: Patient unable to answer Attends Sikhism Services: Patient unable to answer Active Member of Clubs or Organizations: Patient unable to answer Attends Club or Organization Meetings: Patient unable to answer Marital Status: Patient unable to answer Intimate Partner Violence: Patient Unable To Answer (11/28/2024) Received from [facility] Medical Domestic Abuse Assessment Do [...] Patient Unable To Answer (12/01/2024) Received from [facility] Medical Housing Stability Vital Sign Unable to Pay for Housing in the Last Year: Patient unable to answer Number of Times Moved in the Last Year: 0 Homeless in the Last Year: Patient unable to answer Allergies Allergen Reactions Lisinopril Swelling and Angioedema Prior to Admission medications Medication Sig Start Date End Date Taking? Authorizing Provider epoetin rowan-epbx (Retacrit) 37935 UNIT/ML injection Inject 0.79 mL (7,900 Units) [...] Normal [] Scar/Lesion/Mass Inspection of teeth/lips/gums Dentition: [][place] Teeth []Dentures Lips/Gums: [x]Intact []Lesion Present Mucosa: [x][place] []Moist []Dry Neck: External Appearance Overall Appearance: [...] 24 hours- BMP: Recent Labs 01/19/25 0342 01/20/25 0514 [...] -- ABGs: No results for input(s): "PHART", "YZD1VTG", "PO2ART", "MHN5QHB", "SO2ART", "O6LFHZBF" in the last 72 hours. Lactic Acid: [...] Principal Problem: Complication of tracheostomy (CMS/HCC) ([facility]) Active Problems: Severe malnutrition (CMS/HCC) ([facility]) Assessment: Passage of Bright red blood per [...] normal BMI 18.5-24.9 Disposition: Remain on the [facility] Critical Care Time: Total critical care [...] PM EDT I have personally performed a owiy-mp-[id number] diagnostic evaluation on this patient on date of service 01/20/25. History, labs, imaging studies, and electronic medical record have been reviewed by me. This note documented by the []linen room houseperson []ARMIN reflects my history, exam, and medical [...] from the original note were not included. [facility] - Infectious Diseases Advanced Practice Provider Consult Note Reason for Consult: Sacral ulcer osteomyelitis on IV abx at [facility]- known patient History of Present Illness: 59 yo male with PMHx significant for ESRD on HD, HTN, and PAD who was admitted at [facility] 10/03-11/28/24 after presenting with chest pain, [...] Pip-Tazo and Anidulafungin. He was transferred to [facility] on 11/28/24. There he was followed by our ID group and had had recurrent MSSA LRTI that was treated. Additionally, his sacral wound was debrided to bone on 01/02/25. Sacral wound Cx + E faecalis and Clostridium clostridioforme. He is to be on a course of Amp-Sulbactam x6 weeks through 02/13/25. He was discharged to SNF on 01/18. Patient presented to [facility] on 01/19 after self-dislodging tracheostomy. He was transferred to [facility] ICU for further airway management and [...] Diagnosis Date Acute renal failure (ARF) ([facility]) 10/19/2019 Anemia 12/30/2021 Calcification of abdominal aorta ([facility]) 10/08/202309/[address] abd Diverticulosis 10/08/2023 ESRD on hemodialysis ([facility]) ([facility]) 10/26/2019 Hemodialysis patient ([facility]) ([facility]) HTN (hypertension) 12/01/2022 Hypertension IgA nephropathy IgA nephropathy determined by biopsy of kidney 10/26/2019 Missed vaccination due to patient refusal 10/08/2023 Has a number of non-scientific based beliefs which interfere with his understanding and acceptance of the medical benefit of vaccination. Nonrheumatic aortic valve stenosis 10/08/2023 Paroxysmal A-fib ([facility]) ([facility]) 08/18/2023 Tobacco abuse 10/08/2023 Past Surgical History: Past Surgical History: Procedure Laterality Date APPENDECTOMY CARDIAC CATHETERIZATION N/A 10/09/2024 Performed by Bob Watson MD at [facility] Cardiac Cath/EP Lab CARDIAC CATHETERIZATION Bilateral 11/01/2024 Performed by Bob Watson MD at [facility] Cardiac Cath/EP Lab CARDIAC CATHETERIZATION N/A 11/01/2024 Performed by Bob Watson MD at [facility] Cardiac Cath/EP Lab FISTULAGRAM (HISTORICAL) Left 09/15/2021 LEFT UPPER ARM HX AV FISTULA CREATION IR EMBOLIZATION 10/14/2024 IR EMBOLIZATION 10/14/2024 [facility] SPECIAL PROCEDURES IR FISTULAGRAM 08/07/2022 IR FISTULAGRAM 08/07/2022 [facility] IR IMAGING TONSILLECTOMY (HISTORICAL) Current Medications: Current Facility-Administered Medications Medication Dose Route Frequency Provider Last Rate Last Admin acetaminophen (Tylenol) tablet 1,000 mg 1,000 mg Oral q8h PRN Steve Lassiter MD 1,000 mg at 01/19/25 1540 ampicillin-sulbactam (Unasyn) 3,000 mg in sodium chloride 0.9 % 100 mL IVPB (Add-Leroy) 3,000 mg IntraVENous q12h Steve Lassiter MD [...] Needs: No Transportation Needs (01/18/2025) Received from [facility] Transportation Source Has lack of transportation kept you from medical appointments or from getting medications?: No Has lack of transportation kept you from meetings, work, or from getting things needed for daily living?: No Physical Activity: Not on file Stress: No Stress Concern Present (01/18/2025) Received from [facility] Occupational Health - Occupational Stress Questionnaire Feeling of Stress : Not at all Social Connections: Patient Unable To Answer (12/01/2024) Received from [facility] Social Connection and Isolation Panel [NHANES] Frequency of Communication with Friends and Family: Patient unable to answer Frequency of Social Gatherings with Friends and Family: Patient unable to answer Attends Sikhism Services: Patient unable to answer Active Member [...] Abuse - Time Frame: Not on file [facility] Domestic Abuse - Signs and Symptoms: Not on file Verbal Abuse: Unable to assess [facility] Domestic Abuse - Reported To: Not on file Housing Stability: Patient Unable To Answer (12/01/2024) Received from [facility] Medical Housing Stability Vital Sign [...] NEUTROABS 7.6* 7.5 7.5 -- Micro: Previous (SS) 01/02- sacral wound cx- E faecalis (Amp-S), skin ila, Clostridium clostrioforme 01/01- blood cx- 2/2 NG 12/30- blood cx- 2/2 NGTD 12/30- sputum cx- MSSA, resp ila 12/25- blood cx- 2/2 negative 12/14- sputum cx- MSSA, resp ila 12/14- MRSA pcr- MSSA 12/11- sputum cx- MSSA, resp ila Previous ([facility]) 11/28- L pleural fluid- negative 11/16- [...] wound debrided to bone on 01/02 at [facility] (Cx with E faecalis and Clostridium) Plan [...] accounting for open encounter. Mikala MORAN PA-C [facility] Infectious Disease Cosigned by Gurdeep Cruz MD [...] gastrostomy tube placement, who presented to the [place] emergency room from [facility] on 01/19/2025 where he is admitted for IV antibiotics for multiple infected wounds including dry gangrene to the left foot and sacral ulcers. Patient accidentally pulled his tracheostomy and was therefore transferred to the emergency room. Patient transferred to [facility] for higher level of care. GI [...] throughout entire last hospitalization. On presentation to [place] 01/19/2025 hemoglobin was 9.1. This morning dropped to 6.6. No transfusion but repeat hemoglobin 3 hours later at 8.2. Currently getting dialysis. Reports he had a BM 5 minutes ago and he does not know what stools have looked like. He denies abdominal pain. No nausea, vomiting. Per patient girlfriend SNF has been flipping kiac-unl-[id number] between Coumadin and heparin secondary to patient INR. Assume last dose of Coumadin to be 01/18/2025. History of appendectomy and PEG placement. Allergies: Lisinopril Current Medications: Current Facility-Administered Medications: acetaminophen (Tylenol) tablet 1,000 mg, 1,000 mg, Oral, q8h PRN, Steve Lassiter MD, 1,000 mg at 01/19/25 1540 ampicillin-sulbactam (Unasyn) 3,000 mg in sodium chloride 0.9 % 100 mL IVPB (Add-Leroy), 3,000 mg, IntraVENous, q12h, Steve Lassiter MD, [...] Diagnosis Date Noted Anemia 12/30/2021 Paroxysmal A-fib (CMS/HCC) (HCC) 08/18/2023 HTN (hypertension) 12/01/2022 ESRD on hemodialysis ([facility]) ([facility]) 10/26/2019 IgA nephropathy determined by biopsy of kidney 10/26/2019 Diverticulosis 10/08/2023 Nonrheumatic aortic valve stenosis 10/08/2023 Calcification of abdominal aorta ([facility]) 10/08/2023 Missed vaccination due to patient refusal 10/08/2023 Tobacco abuse 10/08/2023 Alcohol use disorder in remission 10/08/2023 Atrial flutter, unspecified type ([facility]) 10/03/2024 RSV (acute bronchiolitis due to respiratory syncytial virus) 10/03/2024 Aortic stenosis 10/03/2024 Upper GI bleed 10/03/2024 S/P AVR 10/03/2024 Acute hypoxic respiratory failure ([facility]) 10/03/2024 Acute encephalopathy 10/03/2024 Pneumoperitoneum 10/03/2024 Gastric ulceration 2024 Severe malnutrition ([facility]) ([facility]) 01/19/2025 Pleural effusion 11/28/2024 Peritonitis due to fungus ([facility]) 11/30/2024 History of abdominal surgery 11/30/2024 Leg DVT (deep venous thromboembolism), acute, left ([facility]) 11/30/2024 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, 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 of skin ([facility]) 11/30/2024 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 Leukocytosis 12/30/2024 Decubitus ulcer of sacral region, unstageable ([facility]) 12/30/2024 Pneumonia of both lungs due to methicillin susceptible Staphylococcus aureus (MSSA) ([facility]) 01/01/2025 Sacral osteomyelitis ([facility]) ([facility]) 01/03/2025 Acute respiratory failure with hypoxia ([facility]) [J96.01] 01/08/2025 Tracheostomy care ([facility]) [Z43.0] 01/08/2025 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[facility]) 01/08/2025 half-way (current) use of antibiotics 01/12/2025 Resolved Ambulatory Problems Diagnosis Date Noted Acute renal failure (ARF) ([facility]) 10/19/2019 New onset a-fib ([facility]) ([facility]) 08/16/2023 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[facility]) 10/03/2024 Past Medical History: Diagnosis Date Hemodialysis patient ([facility]) ([facility]) Hypertension IgA nephropathy Past Surgical History: Social [...] Needs: No Transportation Needs (01/18/2025) Received from [facility] Transportation Source Has lack of transportation kept you from medical appointments or from getting medications?: No Has lack of transportation kept you from meetings, work, or from getting things needed for daily living?: No Physical Activity: Not on file Stress: No Stress Concern Present (01/18/2025) Received from [facility] - Occupational Stress Questionnaire Feeling of Stress : Not at all Social Connections: Patient Unable To Answer (12/01/2024) Received from [facility] Medical Social Connection and Isolation Panel [NHANES] Frequency of Communication with Friends and Family: Patient unable to answer Frequency of Social Gatherings with Friends and Family: Patient unable to answer Attends Sikhism Services: Patient unable to answer Active Member of Clubs or Organizations: Patient unable to answer Attends Club or Organization Meetings: Patient unable to answer Marital Status: Patient unable to answer Intimate Partner Violence: Patient Unable To Answer (11/28/2024) Received from [facility] Medical Domestic Abuse Assessment Do you feel safe in your relationships at home?: Unable to assess Physical Abuse: Unable to assess HRSN Domestic Abuse - Type of Abuse: Not [...] 10/12/24, Coumadin, last dose suspected 01/18/25 at [facility] Acute Right occipital ICH- 10/22/24 ESRD [...] 59 y.o. male with who presented to [facility] as transfer for trach dislodgment. Palliative [...] on 01/20/25 at 7:18 AM. [facility] Nephrology Consult Note Consults HPI The patient is a history of ESRD secondary to IgA nephropathy, currently HD-dependent via a left upper extremity AVF, on a Wednesday//Wednesday ([facility]) dialysis schedule, with the last HD [...] Diagnosis Date Acute renal failure (ARF) ([facility]) 10/19/2019 Anemia 12/30/2021 Calcification of abdominal aorta (HCC) 10/08/202309/[address] abd Diverticulosis 10/08/2023 ESRD on hemodialysis ([facility]) ([facility]) 10/26/2019 Hemodialysis patient ([facility]) ([facility]) HTN (hypertension) 12/01/2022 Hypertension IgA nephropathy IgA nephropathy determined by biopsy of kidney 10/26/2019 Missed vaccination due to patient refusal 10/08/2023 Has a number of non-scientific based beliefs which interfere with his understanding and acceptance of the medical benefit of vaccination. Nonrheumatic aortic valve stenosis 10/08/2023 Paroxysmal A-fib ([facility]) ([facility]) 08/18/2023 Tobacco abuse 10/08/2023 Social History Socioeconomic [...] Needs: No Transportation Needs (01/18/2025) Received from [facility] Transportation Source Has lack of transportation kept you from medical appointments or from getting medications?: No Has lack of transportation kept you from meetings, work, or from getting things needed for daily living?: No Physical Activity: Not on file Stress: No Stress Concern Present (01/18/2025) Received from [facility] - Occupational Stress Questionnaire Feeling of Stress : Not at all Social Connections: Patient Unable To Answer (12/01/2024) Received from [facility] Medical Social Connection and Isolation Panel [NHANES] Frequency of Communication with Friends and Family: Patient unable to answer Frequency of Social Gatherings with Friends and Family: Patient unable to answer Attends Sikhism Services: Patient unable to answer Active Member of Clubs or Organizations: Patient unable to answer Attends Club or Organization Meetings: Patient unable to answer Marital Status: Patient unable to answer Intimate Partner Violence: Patient Unable To Answer (11/28/2024) Received from [facility] Medical Domestic Abuse Assessment Do [...] Patient Unable To Answer (12/01/2024) Received from [facility] Medical Housing Stability Vital Sign [...] sodium chloride 0.9 % 100 mL IVPB (Add-Leroy), 3,000 mg, IntraVENous, Daily, Steve Lassiter MD [...] last 7 days Lab Units 01/19/25 0342 01/16/2531501/15/25 0257 SODIUM mmol/L 135* 138 135* POTASSIUM [...] last 7 days Lab Units 01/19/25 0652 01/19/25 0342 01/15/25 0257 WBC AUTO 10*3/uL 10.9* 11.6* [...] airway management needs. Maintain NPO status per BUTTON BUTTONHOLE MARKER recommendations until airway stabilization; consider modification of HD orders if NPO persists beyond 24-48 hours impacting volume/nutrition Please message me through [email or web address] chat with any questions or concerns. Wellington Nicole MD 01/19/2025 4:13 PM [facility] [address], [address] [place] [address] Office: [phone] Associated Order(s): IP CONSULT TO DIETITIAN; IP [...] EN only as sole source of nutrition. BUTTON BUTTONHOLE MARKER was following while pt was at [facility]. BUTTON BUTTONHOLE MARKER consulted inpatient and recommending strict NPO. RD [...] pt was receiving and tolerating while at [facility]. Will monitor tolerance of nutrition as initiated and increased to goal. Will continue to monitor BUTTON BUTTONHOLE MARKER in the event that oral diet can [...] 10/04/24: 192#, 10/15: 207# bedscale, 10/31: 200#, 3/4: 161#, 01/18: 142#) Body Fat Loss: Severe body fat loss Orbital, Triceps, Fat Overlying Ribs, Buccal region Muscle Mass Loss: Severe muscle mass loss Temples (temporalis), Clavicles (pectoralis & deltoids), Thigh (quadraceps), Calf (gastrocnemius) Fluid Accumulation: No significant fluid accumulation (per flowsheets) Mapping Technician Strength: Not Performed Nutrition Assessment: pt with [...] Prostat, pt was stabilized and transferred to [facility] for ongoing care, vent liberation and rehab, while at [facility] RD was following and pt was receiving Nepro @ 50mls/hr, pt was discharged from [facility] to SNF on 01/18/25, pt now presented to [facility] ED on 01/19/25 from [facility] ([facility]) due to trach dislodgement, pt stated he was trying to disconnect his vent to transfer to another room but accidentally pulled out his tracheostomy, event happened approximately 45 minutes before ED arrival, ED attempted to place tracheostomy tube back but was unsuccessful thus decision was made to transfer pt to [facility] ICU for further airway management and [...] management, Nephrology and wound care consults pending, BUTTON BUTTONHOLE MARKER was also consulted and recommending strict NPO. 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, states his goals are to 'eat [...] Pt presented from SNF, prolonged admit at [facility] 10/03-11/28/24, discharged to [facility] and recently [facility] Orientation Level: Oriented to situation, Oriented [...] bedscale, 10/31: 200#, 11/28: 161#, 01/18: 142#) [place] Body Weight (lbs) (Calculated): 166 lbs [place] Body Weight (Kg) (Calculated): 75 kg % [place] Body Weight (Calculated): 78.2 % BMI (kg/m2) [...] Nutrition Dana El RD Contact: available via [employer] or *[phone] Associated Order(s): INPATIENT CONSULT TO WOUND CARE PROVIDERS Images from the original note were not included. [facility] Wound Care CONSULT Note Jun Snyder [...] diverticulosis, IgA nephropathy, severe that presented to [facility] ED from a facility due to trach dislodgement. Wound Care consulted for Pressure Injury sacrum and Ischemic ulcers to left toes" PAST MEDICAL HISTORY Past Medical History: Diagnosis Date Acute renal failure (ARF) ([facility]) 10/19/2019 Anemia 12/30/2021 Calcification of abdominal aorta ([facility]) 10/08/202309/[address] abd Diverticulosis 10/08/2023 ESRD on hemodialysis ([facility]) ([facility]) 10/26/2019 Hemodialysis patient ([facility] ([facility]) HTN (hypertension) 12/01/2022 Hypertension IgA nephropathy IgA nephropathy determined by biopsy of kidney 10/26/2019 Missed vaccination due to patient refusal 10/08/2023 Has a number of non-scientific based beliefs which interfere with his understanding and acceptance of the medical benefit of vaccination. Nonrheumatic aortic valve stenosis 10/08/2023 Paroxysmal A-fib ([facility]) ([facility]) 08/18/2023 Tobacco abuse 10/08/2023 PAST SURGICAL HISTORY Past Surgical History: Procedure Laterality Date APPENDECTOMY CARDIAC CATHETERIZATION N/A 10/09/2024 Performed by Bob Watson MD at [facility] Cardiac Cath/EP Lab CARDIAC CATHETERIZATION Bilateral 11/01/2024 Performed by Bob Watson MD at [facility] Cardiac Cath/EP Lab CARDIAC CATHETERIZATION N/A 11/01/2024 Performed by Bob Watson MD at [facility] Cardiac Cath/EP Lab FISTULAGRAM (HISTORICAL) Left 09/15/2021 LEFT UPPER ARM HX AV FISTULA CREATION IR EMBOLIZATION 10/14/2024 IR EMBOLIZATION 10/14/2024 [facility] SPECIAL PROCEDURES IR FISTULAGRAM 08/07/2022 IR FISTULAGRAM 08/07/2022 [facility] IR IMAGING TONSILLECTOMY (HISTORICAL) FAMILY [...] Medication Sig Dispense Refill epoetin rowan-epbx (Retacrit) 93952 UNIT/ML injection Inject 0.79 mL (7,900 Units) [...] to follow Recommend to follow up at [facility] after hospital discharge. [...] 4:05 PM EDT documented in this encounter [facility] 01-19-2025 History and physical note Images [...] diverticulosis, IgA nephropathy, severe that presented to [facility] ED from a facility due to trach dislodgement. Per patient, was trying to disconnect his vent to transfer to another room but accidentally pulled out his tracheostomy. This event happened approximately 45 minutes before ED arrival. ED attempted to place tracheostomy tube back but were unsuccessful. Decision was made to transfer patient to [facility] ICU for further airway management and [...] Diagnosis Date Acute renal failure (ARF) ([facility]) 10/19/2019 Anemia 12/30/2021 Calcification of abdominal aorta ([facility]) 10/08/202309/[address] abd Diverticulosis 10/08/2023 ESRD on hemodialysis ([facility] ([facility]) 10/26/2019 Hemodialysis patient ([facility] ([facility]) HTN (hypertension) 12/01/2022 Hypertension IgA nephropathy IgA nephropathy determined by biopsy of kidney 10/26/2019 Missed vaccination due to patient refusal 10/08/2023 Has a number of non-scientific based beliefs which interfere with his understanding and acceptance of the medical benefit of vaccination. Nonrheumatic aortic valve stenosis 10/08/2023 Paroxysmal A-fib ([facility] ([facility]) 08/18/2023 Tobacco abuse 10/08/2023 Past Surgical History: Procedure Laterality Date APPENDECTOMY CARDIAC CATHETERIZATION N/A 10/09/2024 Performed by oBb Watson MD at [facility] Cardiac Cath/EP Lab CARDIAC CATHETERIZATION Bilateral 11/01/2024 Performed by Bob Watson MD at [facility] Cardiac Cath/EP Lab CARDIAC CATHETERIZATION N/A 11/01/2024 Performed by Bob Watson MD at [facility] Cardiac Cath/EP Lab FISTULAGRAM (HISTORICAL) Left [...] Needs: No Transportation Needs (01/18/2025) Received from [facility] Transportation Source Has lack of transportation kept you from medical appointments or from getting medications?: No Has lack of transportation kept you from meetings, work, or from getting things needed for daily living?: No Physical Activity: Not on file Stress: No Stress Concern Present (01/18/2025) Received from [facility] [employer] [facility] - Occupational Stress Questionnaire Feeling of Stress : Not at all Social Connections: Patient Unable To Answer (12/01/2024) Received from [facility] Medical Social Connection and Isolation Panel [NHANES] Frequency of Communication with Friends and Family: Patient unable to answer Frequency of Social Gatherings with Friends and Family: Patient unable to answer Attends Sikhism Services: Patient unable to answer Active Member of Clubs or Organizations: Patient unable to answer Attends Club or Organization Meetings: Patient unable to answer Marital Status: Patient unable to answer Intimate Partner Violence: Patient Unable To Answer (11/28/2024) Received from [facility] Medical Domestic Abuse Assessment Do [...] Patient Unable To Answer (12/01/2024) Received from [facility] Medical Housing Stability Vital Sign Unable to Pay for Housing in the Last Year: Patient unable to answer Number of Times Moved in the Last Year: 0 Homeless in the Last Year: Patient unable to answer Allergies Allergen Reactions Lisinopril Swelling and Angioedema Prior to Admission medications Medication Sig Start Date End Date Taking? Authorizing Provider epoetin orwan-epbx (Retacrit) 20915 UNIT/ML injection Inject 0.79 mL (7,900 Units) [...] Normal [] Scar/Lesion/Mass Inspection of teeth/lips/gums Dentition: [][place] Teeth []Dentures Lips/Gums: []Intact []Lesion Present Mucosa: [][place] []Moist []Dry Neck: External Appearance Tracheostomy hole [...] 18.5* ABGs: No results for input(s): "PHART", "XKG3LAE", "PO2ART", "TFG9QFK", "SO2ART", "O5CGPQIW" in the last 72 hours. Lactic Acid: [...] Principal Problem: Complication of tracheostomy (CMS/HCC) ([facility]) Assessment: Trach dislodgement Chest pain ESRD Chronic [...] PM EDT I have personally performed a [id number]-cp-[id number] diagnostic evaluation on this patient on date [...] to have bile peritonitis 11/28/24: transferred to [facility]. He continued on HD at [facility]. Reportedly had ongoing issues with delirium according to his partner, Toma who was at bedside and provided history. Developed severe sacral ulcer and sacral ostomyelitis at [facility]. He was progressing with [employer] and using a PMV. Has not done any capping trials. Was transferred to a facility in [place]; there he inadvertently dislodged his tracheostomy. He initially presented to the [facility] emergency dept. He was transferred to [facility] in case of emergetn airway compromise. Assessment: Trach dislodgement, high risk of respiratory failure Chronic respiratory failure due to failure of airway protection ESRD Sacral osteomyelitis s/p AVR Full Code Plan: Admit to MICU Close monitorign for airway compromise Restart abx for osteomyelitis FRANKLIN nielsen; [facility] [place] Care Time: 33 minutes Total critical care time caring for this patient with life threatening, unstable organ failure, including direct patient contact, management of life support systems, review of data including imaging and labs, discussions with other team members and physicians, excluding procedures. Electronically signed by Bruce Nguyen MD documented in this encounter [facility] 01-19-2025 Emergency department Note EMERGENCY DEPARTMENT [...] who presents to the emergency department From senior care facility for accidental dislodgment of his tracheostomy [...] nephropathy, hypertension, and currently being treated at senior care facility with IV antibiotics for multiple infected [...] Diagnosis Date Acute renal failure (ARF) ([facility]) 10/19/2019 Anemia 12/30/2021 Calcification of abdominal aorta ([facility]) 10/08/202309/[address] abd Diverticulosis 10/08/2023 ESRD on hemodialysis ([facility] ([facility]) 10/26/2019 Hemodialysis patient ([facility] ([facility]) HTN (hypertension) 12/01/2022 Hypertension IgA nephropathy IgA nephropathy determined by biopsy of kidney 10/26/2019 Missed vaccination due to patient refusal 10/08/2023 Has a number of non-scientific based beliefs which interfere with his understanding and acceptance of the medical benefit of vaccination. Nonrheumatic aortic valve stenosis 10/08/2023 Paroxysmal A-fib ([facility] ([facility]) 08/18/2023 Tobacco abuse 10/08/2023 SURGICAL HISTORY Past Surgical History: Procedure Laterality Date APPENDECTOMY CARDIAC CATHETERIZATION N/A 10/09/2024 Performed by Bob Watson MD at [facility] Cardiac Cath/EP Lab CARDIAC CATHETERIZATION Bilateral 11/01/2024 Performed by Bob Watson MD at [facility] Cardiac Cath/EP Lab CARDIAC CATHETERIZATION N/A 11/01/2024 Performed by Bob Watson MD at [facility] Cardiac Cath/EP Lab FISTULAGRAM (HISTORICAL) Left 09/15/2021 LEFT UPPER ARM HX AV FISTULA CREATION IR EMBOLIZATION 10/14/2024 IR EMBOLIZATION 10/14/2024 [facility] SPECIAL PROCEDURES IR FISTULAGRAM 08/07/2022 IR FISTULAGRAM 08/07/2022 [facility] IR IMAGING TONSILLECTOMY (HISTORICAL) CURRENT MEDICATIONS Previous Medications EPOETIN ROWAN-EPBX (RETACRIT) 63887 UNIT/ML INJECTION Inject 0.79 mL (7,900 Units) [...] Patient Unable To Answer (12/01/2024) Received from [facility] Medical Hunger Vital Sign Worried About Running Out of Food in the Last Year: Patient unable to answer Ran Out of Food in the Last Year: Patient unable to answer Transportation Needs: No Transportation Needs (01/18/2025) Received from [facility] Transportation Source Has lack of transportation kept you from medical appointments or from getting medications?: No Has lack of transportation kept you from meetings, work, or from getting things needed for daily living?: No Stress: No Stress Concern Present (01/18/2025) Received from [facility] [employer] - Occupational Stress Questionnaire Feeling of Stress : Not at all Social Connections: Patient Unable To Answer (12/01/2024) Received from [facility] Medical Social Connection and Isolation Panel [NHANES] Frequency of Communication with Friends and Family: Patient unable to answer Frequency of Social Gatherings with Friends and Family: Patient unable to answer Attends Sikhism Services: Patient unable to answer Active Member of Clubs or Organizations: Patient unable to answer Attends Club or Organization Meetings: Patient unable to answer Marital Status: Patient unable to answer Intimate Partner Violence: Patient Unable To Answer (11/28/2024) Received from [facility] Medical Domestic Abuse Assessment Do [...] nursing note reviewed. Exam conducted with a real estate investor present. Constitutional: General: He is not in [...] accidental dislodgment of his tracheostomy tube at senior care facility as described in the HPI. Reportedly [...] necessary. Dr. Ponce recommended ICU admission to [facility] for observation with possible replacement tracheostomy if needed. ICU at [facility] was consulted and I spoke with Dr. Nguyen regarding admission to their service. He agrees with this indication and patient admitted to [facility] ICU. Diagnoses as of 01/19/25 0300 Complication of tracheostomy ([facility] ([facility]) Medications - No data to display REVAL: [...] FINAL IMPRESSION 1. Complication of tracheostomy ([facility]) ([facility]) DISPOSITION Admit 01/19/2025 03:00:18 AM PATIENT REFERRED [...] 01/19/25 0301 Pt arrived Via EMS from [facility]. Pt removed his trach which he is typically on 5L. 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 He is NPO and receiving IV antibiotics for the results of his blood cultures. Pt was recently transferred to [place] from [facility]. Pt arrived with a pressure of 88/52 and 96% on room air. RT and MD at bedside upon arrival. documented in this encounter [facility] 01-18-2025 History of Presen t illness Narrative [facility] documented in this encounter [facility] 01-17-2025 History of Presen t illness Narrative Seen at [facility] documented in this encounter [facility] 01-17-2025 History of Presen t illness Narrative [facility] documented in this encounter [facility] 01-16-2025 History of Presen t illness Narrative [facility] documented in this encounter [facility] 01-15-2025 History of Presen t illness Narrative Seen at [facility] documented in this encounter [facility] 01-15-2025 History of Presen t illness Narrative [facility] documented in this encounter [facility] 01-14-2025 History of Presen t illness Narrative [facility] documented in this encounter [facility] 01-12-2025 History of Presen t illness Narrative [facility] documented in this encounter [facility] 01-12-2025 History of Presen t illness Narrative [facility]en at [facility] documented in this encounter [facility] 01-11-2025 History of Presen t illness Narrative [facility] documented in this encounter [facility] 01-11-2025 History of Presen t illness Narrative Seen at [facility] documented in this encounter [facility] 01-10-2025 History of Presen t illness Narrative [facility] documented in this encounter [facility] 01-09-2025 History of Presen t illness Narrative [facility] documented in this encounter [facility] 01-09-2025 History of Presen t illness Narrative Seen at [facility] documented in this encounter [facility] 01-08-2025 History of Presen t illness Narrative [facility] documented in this encounter [facility] 01-08-2025 History of Presen t illness Narrative Seen at [facility] documented in this encounter [facility] 01-05-2025 History of Presen t illness Narrative Patient seen by me at [facility]. Documentation including history, exam and plan documented in [facility]. This encounter is for billing only. documented in this encounter [facility] 01-05-2025 History of Presen t illness Narrative [facility] 01/05 documented in this encounter [facility] 01-04-2025 History of Presen t illness Narrative Patient seen by me at [facility]. Documentation including history, exam and plan documented in [facility]. This encounter is for billing only. documented in this encounter [facility] 01-04-2025 History of Presen t illness Narrative [facility] 01/04 documented in this encounter [facility] 01-03-2025 History of Presen t illness Narrative Patient seen by me at [facility]. Documentation including history, exam and plan documented in [facility]. This encounter is for billing only. documented in this encounter [facility] 01-03-2025 History of Presen t illness Narrative Pt seen at [facility]. Complete documentation under [facility]'s EMR. documented in this encounter [facility] 01-02-2025 History of Presen t illness Narrative Pt seen at [facility]. Complete documentation under [facility]'s EMR. documented in this encounter [facility] 01-02-2025 History of Presen t illness Narrative Patient seen by me at [facility]. Documentation including history, exam and plan documented in [facility] EMR. This encounter is for billing only. documented in this encounter [facility] 01-01-2025 History of Presen t illness Narrative Pt seen at [facility]. Complete documentation under [facility]'s EMR. documented in this encounter [facility] 01-01-2025 History of Presen t illness Narrative Patient seen by me at [facility]. Documentation including history, exam and plan documented in [facility] EMR. This encounter is for billing only. documented in this encounter [facility] 01-01-2025 History of Presen t illness Narrative Subsequent visit today at [facility] documented in this encounter [facility] 12-30-2024 History of Presen t illness Narrative Pt seen at [facility]. Complete documentation under [facility]'s EMR. documented in this encounter [facility] 12-28-2024 History of Presen t illness Narrative Patient seen by me at [facility]. Complete documentation including history with assessment and plan were documented in [facility] EMR. This encounter is for billing only. documented in this encounter [facility] 12-27-2024 History of Presen t illness Narrative Patient seen by me at [facility]. Complete documentation including history with assessment and plan were documented in [facility] EMR. This encounter is for billing only. documented in this encounter [facility] 12-26-2024 History of Presen t illness Narrative Patient seen by me at [facility]. Complete documentation including history with assessment and plan were documented in [facility] EMR. This encounter is for billing only. documented in this encounter [facility] 12-22-2024 History of Presen t illness Narrative Patient seen by me at [facility] in [place]. Complete documentation including history with assessment and plan were documented in [facility] EMR. This encounter is for billing only. documented in this encounter [facility] 12-21-2024 History of Presen t illness Narrative Patient seen by me at [facility] in [place]. Complete documentation including history with assessment and plan were documented in [facility] EMR. This encounter is for billing only. documented in this encounter [facility] 12-20-2024 History of Presen t illness Narrative Patient seen by me at [facility] in [place]. Complete documentation including history with assessment and plan were documented in [facility] EMR. This encounter is for billing only. documented in this encounter [facility] 12-19-2024 History of Presen t illness Narrative Patient seen by me at [facility] in [place]. Complete documentation including history with assessment and plan were documented in [facility] EMR. This encounter is for billing only. documented in this encounter [facility] 12-18-2024 History of Presen t illness Narrative Patient seen by me at [facility] in [place]. Complete documentation including history with assessment and plan were documented in [facility] EMR. This encounter is for billing only. documented in this encounter [facility] 12-15-2024 History of Presen t illness Narrative [facility] documented in this encounter [facility] 12-14-2024 History of Presen t illness Narrative [facility] documented in this encounter [facility] 12-14-2024 Telephone encount er Note Patient is still at [facility]. I spoke to Karla, comp field case manager, and she stated that patient has a tentative discharge date on 12/25. He will be going to a facility after that. Karla is not sure which one. I will check back with her closer to that date. [facility] 12-14-2024 Miscellaneous Notes Formattin g of this note might be different from the original. Patient is still at [facility]. I spoke to Karla, comp field case manager, and she stated that patient has a tentative discharge date on 12/25. He will be going to a facility after that. Karla is not sure which one. I will check back with her closer to that date. Called and spoke with patients son to discuss scheduling hospital follow up appointment. Omar advised me that the patient will be in the hospital director long term care as a lot happened while he was hospitalized. Patient does not wish to schedule at this time. Thanks Attempted to call patient to schedule hospital follow up. Patients phone is restricted. Unable to lvm. Sent zulily message. Thanks Will hold to contact patient s/p discharge. Thanks Pt remains admitted at this time. GI staff to contact pt for scheduling OV s/p discharge. Patient needs close follow up for repeat EGD for duodenal ulcer, had IR embolization of GDA. Currently in ICU. Thanks. documented in this encounter [facility] 12-13-2024 History of Presen t illness Narrative [facility] documented in this encounter [facility] 12-13-2024 Telephone encount er Note Called and spoke with patients son to discuss scheduling hospital follow up appointment. Oamr advised me that the patient will be in the hospital director long term care as a lot happened while he was hospitalized. Patient does not wish to schedule at this time. Thanks [facility] 12-13-2024 Miscellaneous Notes Formattin g of this note might be different from the original. Called and spoke with patients son to discuss scheduling hospital follow up appointment. Omar advised me that the patient will be in the hospital director long term care as a lot happened while he was hospitalized. Patient does not wish to schedule at this time. Thanks Attempted to call patient to schedule hospital follow up. Patients phone is restricted. Unable to lvm. Sent zulily message. Thanks Will hold to contact patient s/p discharge. Thanks Pt remains admitted at this time. GI staff to contact pt for scheduling OV s/p discharge. Patient needs close follow up for repeat EGD for duodenal ulcer, had IR embolization of GDA. Currently in ICU. Thanks. documented in this encounter [facility] 12-12-2024 History of Presen t illness Narrative [facility] documented in this encounter [facility] 12-11-2024 History of Presen t illness Narrative Seen at [facility] 12/11/24 documented in this encounter [facility] 12-11-2024 History of Presen t illness Narrative [facility] documented in this encounter [facility] 12-11-2024 Telephone encount er Note Attempted to call patient to schedule hospital follow up. Patients phone is restricted. Unable to lvm. Sent MyChart message. Thanks [facility] 12-11-2024 Miscellaneous Notes Formattin g of [...] in ICU. Thanks. documented in this encounter [facility] 12-07-2024 History of Presen t illness Narrative [facility] documented in this encounter [facility] 12-07-2024 History of Presen t illness Narrative [facility] 12/07/24 documented in this encounter [facility] 12-06-2024 History of Presen t illness Narrative [facility] documented in this encounter [facility] 12-06-2024 History of Presen t illness Narrative [facility] 12/06/24 documented in this encounter [facility] 12-05-2024 History of Presen t illness Narrative [facility] documented in this encounter [facility] 12-04-2024 History of Presen t illness Narrative Follow-up visit today at [facility] documented in this encounter [facility] 12-04-2024 History of Presen t illness Narrative [facility] 12/04/24 documented in this encounter [facility] 12-01-2024 History of Presen t illness Narrative [facility] 12/01/24 documented in this encounter [facility] 12-01-2024 History of Presen t illness Narrative I did a level 4 consult on this patient [facility]. In reviewing Dr. Garcia's note she noted acute systolic right heart failure related to and accompanied by pulmonary hypertension. She noted the need for midodrine. Dr. Chow waited on atrial flutter and atrial tachycardia. He was put on amiodarone and attempt was YG cardioversion, unsuccessful. The last electrocardiogram done at the [facility] showed atrial flutter. documented in this encounter [facility] 12-01-2024 History of Presen t illness Narrative [facility] billing documented in this encounter [facility] 11-30-2024 History of Presen t illness Narrative [facility] documented in this encounter [facility] 11-30-2024 History of Presen t illness Narrative [facility] 11/30/24 documented in this encounter [facility] 11-29-2024 History of Presen t illness Narrative [facility] 11/29/24 documented in this encounter [facility] 11-29-2024 History of Presen t illness Narrative [facility] billing documented in this encounter [facility] 11-28-2024 Telephone encount er Note Name of Caller: Herminia Contact Physician requesting Consult: Michelle Caruso APRN Patient Location (facility name, room, bed number): [facility] 116 Patient Diagnosis/Reason for Consult:SOB Provider being paged: Dr Nathan Time page was sent: [phone] Department of provider being paged: [facility] Page Content: routine consult requested. Message sent via Secure Chat [facility] 11-28-2024 Miscellaneous Notes Formattin g of this note might be different from the original. Name of Caller: Herminia Contact Physician requesting Consult: Michelle Caruso APRN Patient Location (facility name, room, bed number): [facility] 116 Patient Diagnosis/Reason for Consult:SOB Provider being paged: Dr Nathan Time page was sent: [phone] Department of provider being paged: [facility] Page Content: routine consult requested. Message sent via Secure Chat documented in this encounter [facility] 10-17-2024 Telephone encount er Note Will hold to contact patient s/p discharge. Thanks [facility] 10-17-2024 Miscellaneous Notes Formattin g of this note might be different from the original. Will hold to contact patient s/p discharge. Thanks Pt remains admitted at this time. GI staff to contact pt for scheduling OV s/p discharge. Patient needs close follow up for repeat EGD for duodenal ulcer, had IR embolization of GDA. Currently in ICU. Thanks. documented in this encounter [facility] 10-17-2024 Miscellaneous Notes Formattin g of this note might be different from the original. Will hold to contact patient s/p discharge. Thanks Pt remains admitted at this time. GI staff to contact pt for scheduling OV s/p discharge. Patient needs close follow up for repeat EGD for duodenal ulcer, had IR embolization of GDA. Currently in ICU. Thanks. documented in this encounter [facility] 10-17-2024 Telephone encount er Note Pt remains admitted at this time. GI staff to contact pt for scheduling OV s/p discharge. [facility] 10-16-2024 Telephone encount er Note Patient needs close follow up for repeat EGD for duodenal ulcer, had IR embolization of GDA. Currently in ICU. Thanks. [facility] Work Phone: 10-16-2024 Miscellaneous Notes Formattin g of this note might be different from the original. Patient needs close follow up for repeat EGD for duodenal ulcer, had IR embolization of GDA. Currently in ICU. Thanks. documented in this encounter [employer] [facility] 10-12-2024 Note Formatting of this n ote is different from the original. Patient: Jair Snyder Procedure Summary Date: 10/12/24 Room / Location: [facility] Operating Room Anesthesia Start: 725 Anesthesia [...] once all PACU criteria has been met. [facility] 10-12-2024 Miscellaneous Notes Formattin g of this note is different from the original. Patient: Jair Snyder Procedure Summary Date: 10/12/24 Room / Location: [address] Operating Room Anesthesia Start: 725 Anesthesia [...] has been met. documented in this encounter [facility] 10-12-2024 Anesthesiology Postoperative evaluation and management note Patient: Jair Snyder Procedure Summary Date: 10/12/24 Room / Location: [address] Operating Room Anesthesia Start: 725 Anesthesia [...] opportunity for questions and acknowledgement of understanding. [facility] [employer] Phone: 10-12-2024 Surgical operatio n note Patient: Jair Snyder Procedure Summary Date: 10/12/24 Room / Location: [facility] Operating Room Anesthesia Start: 725 Anesthesia [...] during the procedure: no complications. Staffing Performed: FINANCIAL REPORTING ANALYST Resident/FINANCIAL REPORTING ANALYST: Rudolph German CRNA Associated Order(s): Airway Airway Date/Time: 10/12/2024 7:38 AM Urgency: scheduled Airway not difficult General Information and Staff Patient location during procedure: Procedural Anesthesiologist: Vincent Wilson MD Resident/FINANCIAL REPORTING ANALYST: Rudolph German CRNA Performed: anesthesiologist Indications and [...] procedure well with no complications. Staffing Performed: FINANCIAL REPORTING ANALYST Resident/FINANCIAL REPORTING ANALYST: Rudolph German CRNA Patient: Jair Snyder Procedure Information Date/Time: 10/12/24729 Procedures: AORTIC VALVE REPAIR, POSSIBLE REPLACEMENT (Chest) - 7:30 am, 5 hours TRICUSPID REPLACEMENT WITH RING (Chest) TRANSESOPHAGEAL ECHOCARDIOGRAM Location: [facility] OR [address] [place] [address] Operating Room Surgeons: Luciano Montemayor MD Relevant [...] History: 10/19/2019: Acute renal failure (ARF) ([facility]) 12/30/2021: Anemia 10/08/2023: Calcification of abdominal aorta [...] Comment: Performed by Bob Watson MD at [facility] Cardiac Cath/EP Lab 09/15/2021: FISTULAGRAM (HISTORICAL); Left Comment: LEFT UPPER ARM No date: HX AV FISTULA CREATION 08/07/2022: IR FISTULAGRAM Comment: IR FISTULAGRAM 08/07/2022 [facility] IR IMAGING No date: TONSILLECTOMY [...] Additional Equipment Requests documented in this encounter [facility] 10-12-2024 Procedure anesthe jaki Narrative Procedure Name [...] RN Introducer Placement Date: 10/12/24; Placement Time: 07 (created via procedure documentation); Location: Internal jugular; [...] Tolerated well; Removal Date: 10/16/24; Removal Time: 09; Removal Reason: Per order 10/12/24 0737 by [...] by Tracie Pacheco RN 10/14/24 1048 by Hunetr Dove RN documented [facility] this [facility]4381 Anesthesiology procedure note* Anesthesia Procedure Notes - [...] during the procedure: no complications. Staffing Performed: JAMES Resident/FINANCIAL REPORTING ANALYST: Rudolph German CRNA [place] [id number] Anesthesiology procedure note* Anesthesia Procedure Notes - Rudolph German CRNA - 10/12/2024 7:49 AM ESTAssociated Order(s): Airway Airway Date/Time: 10/12/2024 7:38 AM Urgency: scheduled Airway not difficult General Information and Staff Patient location during procedure: Procedural Anesthesiologist: Vincent Wilson MD Resident/FINANCIAL REPORTING ANALYST: Rudolph German CRNA Performed: anesthesiologist Indications and Patient Condition Indications for airway management: airway protection and anesthesia Sedation level: Asleep Preoxygenated: yes Patient position: sniffing MILS maintained throughout Mask difficulty assessment: 1 - vent by mask Final Airway Details Final airway type: endotracheal airway Successful airway: ETT Cuffed: yes Successful intubation technique: direct laryngoscopy Endotracheal tube insertion site: oral Blade: Bustmaante Blade size: #3 ETT size (mm): 8.0 Cormack-Lehane Classification: grade IIa - partial view of glottis Placement verified by: capnometry Measured from: lips ETT to lips (cm): 21 Number of attempts at approach: [address]16-2025 Anesthesiology procedure note* Anesthesia Procedure Notes - [...] procedure well with no complications. Staffing Performed: FINANCIAL REPORTING ANALYST Resident/FINANCIAL REPORTING ANALYST: Rudolph German CRNA [facility]53-79-2547 Anesthesiology Preoperative evaluation and management note* Anesthesia Preprocedure Evaluation - Vincent Wilson MD - 10/12/2024 6:56 AM EST Patient: Jair Snyder Procedure Information Date/Time: 10/12/24 0730 Procedures: AORTIC VALVE REPAIR, POSSIBLE REPLACEMENT (Chest) - 7:30 am, 5 hours TRICUSPID REPLACEMENT WITH RING (Chest) TRANSESOPHAGEAL ECHOCARDIOGRAM Location: [address] Operating Room Surgeons: Luciano Montemayor MD Relevant [...] 10/08/2023: Diverticulosis 10/26/2019: ESRD on hemodialysis (CMS/HCC) ([facility]) No date: Hemodialysis patient (CMS/HCC) (HCC) 12/01/2022: [...] Comment: Performed by Bob Watson MD at [facility] Cardiac Cath/EP Lab 09/15/2021: FISTULAGRAM (HISTORICAL); Left Comment: LEFT UPPER ARM No date: HX AV FISTULA CREATION 08/07/2022: IR FISTULAGRAM Comment: IR FISTULAGRAM 08/07/2022 [facility] IR IMAGING No date: TONSILLECTOMY [...] 10:45 AM Equipment Requests: Additional Equipment Requests [id number] History of Present illness Narrative* Jr Shah MD - 08/28/2024 3:15 PM EST Images from the original note were not included. [facility] [place] [address] [place] [address] [address] [facility], [facility] [id number] Dept: [phone] Dept Visit type: Established : 1965 Reason [...] PRN, other, suboptimal echo image, Starting on 08/28/24 at 1606, For 1 dose, CV Procedural [...] months (around 02/26/2025) for [facility] f/u in [place]. Subjective Afib after admission 07/2023. ESRD on [...] On theother hand, a mechanical valve with director long term care OAC carries its own risks with a [...] none/quit. Pt would like to f/u in [place]. Was concerned about location and level of [...] Diagnosis Date Acute renal failure (ARF) ([facility]) 10/19/2019 Anemia 12/30/2021 Calcification of abdominal aorta ([facility]) 10/08/202309/[address] abd Diverticulosis 10/08/2023 ESRD on hemodialysis ([facility]) ([facility]) 10/26/2019 Hemodialysis patient ([facility]) ([facility]) HTN (hypertension) 12/01/2022 Hypertension IgA nephropathy IgA nephropathy determined by biopsy of kidney 10/26/2019 Missed vaccination due to patient refusal 10/08/2023 Has a number of non-scientific based beliefs which interfere with his understanding and acceptance of the medical benefit of vaccination. Nonrheumatic aortic valve stenosis 10/08/2023 Paroxysmal A-fib ([facility]) ([facility]) 08/18/2023 Tobacco abuse 10/08/2023 Social History Tobacco [...] medical care for thiscondition(s). documented in this [facility]12-02-2024 Evaluation + Plan note* Assessment & Plan Note - Jr Shah MD - 08/28/2024 1:07 PM EST Associated Problem(s): Alcohol use disorder in remission Says he is a "functioning alcoholic". Stopping drinking in 2019. -Recommend stay quit due to addiction and risk of bleeding. [id number] Evaluation + Plan note* Assessment & Plan Note - Jr Shah MD - 08/28/2024 1:07 PM ESTAssociated Problem(s): Tobacco abuse 1 ppd. Recommend complete cessation. -Recommend CT lung cancer screening. [place] [id number] Miscellaneous Notes* Assessment & Plan Note - Jr Shha MD - 08/28/2024 1:07 PM ESTAssociated Problem(s): [...] ablation, watchman device, etc. documented in this [facility]12-02-2024 Evaluation + Plan note* Assessment [...] which will need to be carefully considered. [facility] [id number] Evaluation + Plan note* Assessment & Plan [...] see EP, discuss ablation, watchman device, etc. [facility] [id number] History of Present illness Narrative* Alan Barroso RN - 05/10/2024 2:38 PM EDT Dialysis center status inquiry form received from [facility]. Form completed and faxed back to ELIA Marin at [phone]. Patient was called 04/12/2024 but voicemail was full, letter was sent to please call the office at [phone] to complete intake. Referral was closed. Please have patient call the office to complete intake. JHONY Meier RN May 10, 2024 2:41 PM [facility] Telephone encounter Note * Telephone Encounter - Lanie Luis - 04/12/2024 11:49 AM EDT I called patient to start the kidney referral intake process. Voicemail is full, sent a letter out. Lanie [facility]07-17-2024 Miscellaneous Notes* Telephone Encounter - Lanie Luis - 04/12/2024 11:49 AM EDT I called patient to start the kidney referral intake process. Voicemail is full, sent a letter out. Lanie [facility] Telephone encounter Note * Telephone Encounter - Tracie Chin RN - 02/14/2024 10:23 AM EDT Called LM with pt with central scheduling number. Advised to call to schedule echo. [facility] HospitalXpuhbz08-39-9416 Miscellaneous Notes* Telephone Encounter - Tracie Chin RN - 02/14/2024 10:23 AM EDT Called LM with pt with central scheduling number. Advised to call to schedule echo. * Telephone Encounter - Dorcas Pabon - 02/12/2024 10:28 AM EDT Unable to contact patient - called and lvm and sent [employer] message for echo Deferred documented in this [facility]05-18-2024 Telephone encounter Note* Telephone Encounter - Dorcas Pabon - 02/12/2024 10:28 AM EDT Unable to contact patient - called and lvm and sent mychart message for echo Deferred [facility]Jwgtda38-82-1989 Miscellaneous Notes* Telephone Encounter - Dorcas Pabon - 02/12/2024 10:28 AM EDT Unable to contact patient - called and lvm and sent mychart message for echo [employer] documented in this [facility]05-18-2024 Telephone encounter Note* Telephone Encounter - Dorcas Pabon - 02/12/2024 10:23 AM EDT Unable to contact patient to schedule CT lung screening - called and sent mychart message Deferred [facility] HospitalVfkwrz39-44-9692 Miscellaneous Notes* Telephone Encounter - Dorcas Pabon - 02/12/2024 10:23 AM EDT Unable to contact patient to schedule CT lung screening - called and sent mychart message [employer] documented in this [facility]02-16-2024 Evaluation + Plan note* Assessment & Plan Note - DENIA Dumont CNP - 11/12/2023 4:50 PM EST Associated Problem(s): Tobacco abuse 1 ppd. Recommend complete cessation. Consider CT lung cancer screening. [facility] HospitalGzibar20-75-3965 Miscellaneous Notes* Assessment & Plan Note - [...] than just dialysis days. documented in this [facility]02-16-2024 Evaluation + Plan note* Assessment & Plan Note - DENIA Dumont CNP - 11/12/2023 4:48 PM EST Associated Problem(s): Calcification of abdominal aorta (HCC) Sep 2023, by chart review this is the only ASCVD finding. Utility of lipid- lowering agent controversial in ESRD and does not appear to be improved with moderate intensity statins. -expectant mgt [facility] HospitalRyjabw15-75-6594 Evaluation + Plan note* Assessment & Plan Note - DENIA Dumont CNP - 11/12/2023 4:48 PM ESTAssociated Problem(s): HTN (hypertension) Goal BP < 130/80 mmHg. BP today in office borderline. -continues on toprol XL -mgt per PCP and renal [facility]02-16-2024 Evaluation + Plan note* Assessment & Plan [...] open to. [facility]02-16-2024 Evaluation + Plan note* Assessment & Plan [...] dose overall, rather than just dialysis days. [facility] HospitalWniqwk53-43-1047 History of Present illness Narrative* DENIA Dumont CNP - 11/12/2023 1:30 PM EST Images from the original note were not included. [facility] [address] [place] [address] [address] [place] [address] Dept: [phone] Dept Loc: [phone] Visit type: Established : 1965 Reason for Visit: Atrial Fibrillation Assessment and Plan 1. Nonrheumatic aortic valve stenosis Assessment & Plan: Mod-Sev. No Sxs. Reviewed that he will eventually need replacement; if not replaced with severe and Sxs then substantially increased risk of in subsequent years. -[place] echo in 6 mos; if the same as prior then f/u echo in 1 yr, if progression, then followup echoin another 6 mos. -When develops severe and/or Sxs will refer to Structural Heart clinic. He has preconceived ideaabout how he would have his valve replaced. This is one area of invasive cardiac intervention that he is open to. 2. Paroxysmal A-fib (CMS/HCC) ([facility]) Assessment & Plan: Paroxysmal. Refer to Dr. [...] the other hand, a mechanical valve with director long term care OAC carries its own risks. Today: He [...] Diagnosis Date Acute renal failure (ARF) ([facility]) 10/19/2019 Anemia 12/30/2021 Calcification of abdominal aorta ([facility]) 10/08/202309/[address] abd Diverticulosis 10/08/2023 ESRD on hemodialysis ([facility]) ([facility]) 10/26/2019 Hemodialysis patient ([facility]) ([facility]) HTN (hypertension) 12/01/2022 Hypertension IgA nephropathy IgA nephropathy determined by biopsy of kidney 10/26/2019 Missed vaccination due to patient refusal 10/08/2023 Has a number of non-scientific based beliefs which interfere with his understanding and acceptance of the medical benefit of vaccination. Nonrheumatic aortic valve stenosis 10/08/2023 Paroxysmal A-fib ([facility]) ([facility]) 08/18/2023 Tobacco abuse 10/08/2023 Social History Tobacco [...] PM DENIA Dumont CNP documented in this [facility]02-05-2024 Telephone encounter Note* Telephone Encounter - Sydni Rodrigues - 11/01/2023 9:41 AM EST Called pt lmom for a return call to set up appt [facility]Ueybdy61-70-8532 Miscellaneous Notes* Telephone Encounter - Sydni Rodrigues [...] 10/14/2023 7:58 AM EST Preferred contact number: [phone] Reason for Visit: Jun called in to cancel his appt this morning. He woke up and is very sick. Please contact him to reschedule. Urgency of Appointment: office visit documented in this encounterSSelect [facility]stownUtwejy33-27-4566 Telephone encounter Note* Telephone Encounter - Sydni Rodrigues - 10/18/2023 2:34 PM EST Called pt LMOM for a return call to set up appt [facility] HospitalGclpji97-10-9360 Telephone encounter Note* Telephone Encounter - Sydni Rodrigues - 10/14/2023 8:56 AM EST Called pt LMOM for a return call to r/s appt [facility] HospitalQnraxn91-61-2990 Telephone encounter Note* Telephone Encounter - Regino Ortiz - 10/14/2023 7:58 AM EST Preferred contact number: [phone] Reason for Visit: Jun called in to cancel his appt this morning. He woke up and is very sick. Please contact him to reschedule. Urgency of Appointment: office visit [facility]Vcbcok85-14-1924 Telephone encounter Note* Telephone Encounter - Darya Payne - 08/23/2023 1:47 PM EST 2nd attempt to schedule, no answer, left message. [place] [id number] Miscellaneous Notes* Telephone Encounter - Darya Payne [...] 8:30 AM EST ----- Patient discharged from [facility]. Please assist with s/p hosp "[facility]," okay within the next ~week. Thanks! documented in this encounterSSelect [facility] Special[facility] Hospital [facility] YoungstownIkxees62-40-2436 Telephone encounter Note* Telephone Encounter - Darya Payne - 08/18/2023 2:13 PM EST Left message requesting a call back from the patient to schedule appointment. [place] [id number] Telephone encounter Note* Telephone Encounter - Darya Payne - 08/18/2023 2:12 PM EST ----- Message from DENIA Dumont CNP sent at 08/18/2023 8:30 AM EST ----- Patient discharged from [facility]. Please assist with s/p hosp "[facility]," okay within the next ~week. Thanks! [facility] HospitalJljaha97-92-9486 Emergency department Note* Mary Ann Meraz RN - 08/17/2023 3:11 PM EST Patient education given in regard to medications, as well as following-up with PCP. Patient given eliquis information packet, understanding well. Mary Ann Meraz RN 08/17/23 151 [facility] HospitalIznubp45-18-8229 Emergency department Note* Mary Ann Meraz RN - 08/17/2023 3:11 PM EST Patient education given in regard to medications, as well as following-up with PCP. Patient given eliquis information packet, understanding well. Mary Ann Meraz RN 08/17/23 151 * Dangelo Horne DO - 08/16/2023 6:16 PM EST Emergency Department Encounter [facility] ED Patient: Jun Snyder : [...] 08/16/2023 6:16 PM EST Emergency Department Encounter [facility] ED Patient: Jun Snyder : [...] CREATION IR FISTULAGRAM 08/07/2022 IR FISTULAGRAM 08/07/2022 [facility] IR IMAGING TONSILLECTOMY (HISTORICAL) Social [...] gross facial drooping. No obvious neurologic deficits. Mapping Technician strength symmetrical. Moves all 4 extremities spontaneously. [...] 364 ms QTC Interval 491 ms P [place] degrees QRS [place] 61 degrees T Wave [place] -20 degrees [place] Interval ms Radiographs: XR chest 1 view Final Result 1. Cardiomegaly. 2. No other acute findings. Report Dictated on Electronically Signed By: Justo Milan MD Electronically Signed Date/Time: 08/16/2023 6:42 PM EST : EKG: All EKG's areinterpreted by the Emergency Department Physician in the absence of a welding machine operator resistance. see their note for interpretation of EKG. [...] for new onset A-fib. Patient excepted to [facility]. Final Diagnosis: 1. New onset a-fib (CMS/HCC) (HCC) Medications - No data to display Diagnoses as of 08/16/232129 New onset a-fib (CMS/HCC) (HCC) CRITICAL CARE TIME CONSULTS: None PROCEDURES: Unless otherwise noted below, none Procedures DISPOSITION/PLAN Admit 08/16/2023 08:09:48 PM PATIENT REFERRED TO: No follow-up provider specified. DISCHARGE MEDICATIONS: New Prescriptions No medications on file @[facility]([id number]:LAST:1)@ (Please note: Portions of this note were completed with a voice recognition program. Efforts were made to edit the dictations but occasionally words and phrases are mis-transcribed.) Form [id number] Sha Granados PA-C [facility] Sha Granados PA-C 08/16/232129 documented in this [facility]11-21-2023 Hospital Discharge instructions* Discharge Instr - Other Orders* DENIA Lorenzo CNP - 08/17/2023 3:02 PM EST Please discontinue Labetalol and Caduet; see discharge medication list Next dialysis session is 08/18/23 as previously instructed * Attachments The following attachments cannot be sent through Care Everywhere. * Atrial Fibrillation (Malagasy) * Going Home on Blood Thinners (Malagasy) * Apixaban, ADULT (Malagasy) documented in this [facility]11-21-2023 History of Present illness Narrative* DENIA Lorenzo [...] last 72 hours. CARDIAC ENZYMES: Recent Labs 08/16/23184208/16/23 2200 08/17/23 0058 TROPONINI 0.037* 0.062* 0.094* [...] Primary Emergency Contact: Alexx Snyder [address]: [address] [place] [address] of [employer] Relation: Child DENIA Lorenzo CNP Division of Hospitalist Medicine Inpatient Medical Services/[facility] Comment: Please note this report has been [...] reflects time of documentation. documented in this [facility]11-21-2023 Consult note* Rj Villela MD - 08/17/2023 10:16 AM ESTAssociated Order(s): IP CONSULT TO CARDIOLOGY [facility] CONSULTATION Patient Name: Jun Snyder : [...] left heart disease. Rj Villela M.D., F.A.C.C. Skein Yarn Drier Chief, Division of Cardiac Imaging Clinical [facility]er Out, [facility] Data Collection Cardiac Testin08/16/23 ECG [...] a past medical history of Hemodialysis patient ([facility]) (HCC), Hypertension, and IgA nephropathy. He has [...] alert. Psychiatric: Mood and Affect: Mood normal. [employer] Work Phone: [phone] 129-988911-21-2023 Consult note* Rj Villela MD - 08/17/2023 10:16 AM ESTAssociated Order(s): IP CONSULT TO CARDIOLOGY [facility] CARDIOLOGY CONSULTATION Patient Name: Jun Snyder : [...] left heart disease. Rj Villela M.D., F.A.C.C. Skein Yarn Drier Chief, Division of Cardiac Imaging Clinical Shanker Out, [facility] Data Collection Cardiac Testin08/16/23 ECG [...] a past medical history of Hemodialysis patient ([facility]) (HCC), Hypertension, and IgA nephropathy. He has [...] and Affect: Mood normal. documented in this [facility]11-20-2023 History and physical note* Earlene Irving MD - 08/16/2023 8:38 PM EST Images from the original note were not included. History and Physical [facility] Jun Snyder : 1965 AGE 57 y.o. [...] WedAug 16, 2023 8:09 PM (Active) Physician Wood Router: Sha Granados PA-C, starting on WedAug 16, [...] him When he was getting dialysis his highway research engineer detected irregular rhythm suspected A-fib and referred [...] Past Medical History: Diagnosis Date Hemodialysis patient ([facility]) (HCC) Hypertension IgA nephropathy Past Surgical History: Procedure Laterality Date APPENDECTOMY FISTULAGRAM (HISTORICAL) Left 09/15/2021 LEFT UPPER ARM HX AV FISTULA CREATION IR FISTULAGRAM 08/07/2022 IR FISTULAGRAM 08/07/2022 [facility] IR IMAGING TONSILLECTOMY (HISTORICAL) Allergies Allergen Reactions [...] 08/16/2023 364 QTC Interval 08/16/2023 491 QRS [place] 08/16/2023 61 T Wave [place] 08/16/2023 -20 SODIUM 08/16/2023 133 (L) POTASSIUM [...] QT Interval 364 QTC Interval 491 P [place] QRS [place] 61 T Wave [place] -20 MO Interval Impression ATRIAL FIBRILLATION, V-RATE 88-139 INCOMPLETE [...] Anticoagulation yet to be determined His current [id number] score would be 1 based upon history [...] to due risk bleed/procedure 08/16/2023 Jun Snyder [id number] Any scheduled follow up appointments No future appointments. Extended Emergency Contact Information Primary Emergency Contact: Adrian Snyderad [address]: [address] [place] [address]. [place] [phone] [place] [facility] Mobile Relation: Child Portions of this note may be electronically transcribed. Please forward a copy of this H&P to the primary care physician. [id number] History and physical note* Earlene Irving MD - 08/16/2023 8:38 PM EST Images from the original note were not included. History and Physical [facility] Jun Snyder : 1965 AGE 57 y.o. [...] WedAug 16, 2023 8:09 PM (Active) Physician Wood Router: Sha Granados PA-C, starting on WedAug 16, [...] him When he was getting dialysis his highway research engineer detected irregular rhythm suspected A-fib and referred [...] 08/16/2023 364 QTC Interval 08/16/2023 491 QRS [place] 08/16/2023 61 T Wave [place] 08/16/2023 -20 SODIUM 08/16/2023 133 (L) POTASSIUM [...] QT Interval 364 QTC Interval 491 P [place] QRS [place] 61 T Wave [place] -20 [place] Interval Impression ATRIAL FIBRILLATION, V-RATE 88-139 INCOMPLETE [...] monitor him on telemetry asked cardiology to [facility] we will additionally request echocardiogram. He is not experiencing chest pain but he is a current smoker and I do not see a recent cardiac work-up in the computer EKG on admission did confirm atrial fibrillation but he is currently in sinus rhythm Anticoagulation yet to be determined His current [id number] score would be 1 based upon history [...] to due risk bleed/procedure 08/16/2023 Jun Snyder [id number] Any scheduled follow up appointments No future appointments. Extended Emergency Contact Information Primary Emergency Contact: Alexx Snyder [address]: [address] [place] [id number] [facility] Mobile Relation: Child Portions of this note may be electronically transcribed. Please forward a copy of this H&P to the primary care physician. documented in this [facility]11-20-2023 Physician Emergency department Note* Dangelo Horne DO - 08/16/2023 6:16 PM EST Emergency Department Encounter [facility] ED Patient: Jun Snyder : [...] Horne DO 08/16/231922 Dangelo Horne DO 08/16/231957 [employer] Work Phone: [phone]) 322-788011-20-2023 Physician Emergency department Note* Sha Granados PA-C - 08/16/2023 6:16 PM EST Emergency Department Encounter [facility] ED Patient: Jun Snyder : [...] gross facial drooping. No obvious neurologic deficits. Mapping Technician strength symmetrical. Moves all 4 extremities spontaneously. SCREENINGS D Labs: Results for orders placed or performed during the hospital encounter of 11/20/23 Basic metabolic panel Result Value Ref Range [...] 364 ms QTC Interval 491 ms P [place] degrees QRS [place] 61 degrees T Wave [place] -20 degrees MO Interval ms Radiographs: XR chest 1 view Final Result 1. Cardiomegaly. 2. No other acute findings. Report Dictated on Electronically Signed By: Justo Milan MD Electronically Signed Date/Time: 08/16/2023 6:42 PM EST : EKG: All EKG's areinterpreted by the Emergency Department Physician in the absence of a welding machine operator resistance. see their note for interpretation of EKG. [...] for new onset A-fib. Patient excepted to [facility]. Final Diagnosis: 1. New onset a-fib (CMS/HCC) (HCC) Medications - No data to display Diagnoses as of 08/16/232129 New onset a-fib (CMS/HCC) ([facility]) CRITICAL CARE TIME CONSULTS: None PROCEDURES: Unless otherwise noted below, none Procedures DISPOSITION/PLAN Admit 08/16/2023 08:09:48 PM PATIENT REFERRED TO: No follow-up provider specified. DISCHARGE MEDICATIONS: New Prescriptions No medications on file @[facility]([id number]:LAST:1)@ (Please note: Portions of this note were completed with a voice recognition program. Efforts were made to edit the dictations but occasionally words and phrases are mis-transcribed.) Form [id number] Sha Granados PA-C [employer] Sha Granados PA-C 08/16/232129 [facility]08-05-2023 Hospital Discharge instructions* Discharge Instructions* Jese Frank [...] petroleum jelly on it. documented in this [facility]08-05-2023 Emergency department Note* Jese Frank [...] (end stage renal disease) on dialysis ([facility]) DISPOSITION/PLAN DISPOSITION Discharge 05/01/2023 08:15:56 PM PATIENT REFERRED TO: Daryn Loomis MD [address] [facility] [address] In 1 week [facility] Cardiac, Thoracic and Vascular Specialties [address] [place] [address] [address] [address] I prescribed: New Prescriptions EMOLLIENT [...] has no further needs. documented in this [facility]08-05-2023 Emergency department Triage note* Sony Dacosta RN - 05/01/2023 7:35 PM EDT Patient to ER room 6 without difficulty. Patient is a dialysis patient Wednesday and Wednesday. Patient had dialysis today . Has small sore close to dialysis site that bleeds occasionally. Patient was seen in [facility] a month ago for the same problem. Bed locked and low position, call light within reach. Patient has no further needs. [id number] Physician Emergency department Note* Jese Frank MD [...] (end stage renal disease) on dialysis ([facility]): complicated acute illness or injury Skin sore: [...] (end stage renal disease) on dialysis ([facility]) * No order type specified * MDM: [...] (end stage renal disease) on dialysis (HCC) DISPOSITION/PLAN DISPOSITION Discharge 05/01/2023 08:15:56 PM PATIENT REFERRED TO: Daryn Loomis MD [address] [facility] [address] In 1 week [facility] Cardiac, Thoracic and Vascular Specialties [address] [place] [address] [address] [address] I prescribed: New Prescriptions EMOLLIENT [...] MD (electronically signed) Jese Frank MD 05/01/232038 [facility] [id number] Miscellaneous Notes* Telephone Encounter - Karly Devika Pss - 01/01/2022 2:36 PM EDT I scheduled him w/ Dr. reid on WednesdayFebruary 16 and left him a detailed vm that I did. This is all have at [facility] bc we are in to March and jair needs a Wednesday or Wednesday bc of dialysis I am sorry, I don't have solution or advise for hospital schedule issues. Next best thing is to discuss with Naomi. May be when Dr. King or Marti come in for special cases to [facility], can this case beincluded at that time. Or if you cancel [facility] schedule and make room for me to come to [facility] any day I can get this done. Thanks! * Telephone Encounter - Karly Kumar - 12/30/2021 10:36 AM EDT Antonio I had him scheduled for his colon w/ you for next WednesdayJanuary 05 but Peggy james said he has to be done at [facility] bc of his hgb. I have no openings at [facility] and I don't know what to do Can you please let me know how to proceed. Thank you Eryn PS I NEED A NEW COLON ORDER FOR [facility] documented in this [facility]04-05-2022 Miscellaneous Notes* Telephone Encounter - Karly [facility] - 12/30/2021 9:33 AM EDT Antonio Painter saw a patient the other day and he ordered him a colon for blood loss anemia I scheduled him for [facility] but his hgb is 6 so Charo wants him at [facility] . He is also on dialysisand could only do a Wednesday. All docs are booked until March You had a cancellation for next . Can I please put him w/ you? Thank you Eryn documented in [facility]04-04-2022 Miscellaneous Notes* Telephone Encounter - Karly [facility] - 12/29/2021 4:18 PM EDT Antonio I know this patient saw Inocencio the other day as a new patient. I have him scheduled her and his hgb is 6 Could you please do an order for me? I have to get him on tayo Thanks Eryn documented in this [facility]03-31-2022 History of Present illness Narrative* Shameem Alisson Painter MD - 12/25/2021 3:48 PM EDT CHIEF COMPLAINT: Patient presents with: Hemoglobin drop 6.8: Rectal bleeding- labs in Care Everywhere under Summarization This consult was requested by Cindy Patel MD for an opinion regarding anemia. My final recommendations will be communicated to the requesting health care provider by way of the shared medical record for internal providers or letter via the [employer] for external providers. HPI: Jun Snyder is [...] CKD (chronic kidney disease) Dialysis T//Sat @ [facility], Home hemodialysis since 09/2019 Diverticulosis [...] 12/25/21 TIME: 3:56 PM documented in this [facility]01-31-2020 History of Present illness Narrative* Miracle Jaramillo RN - 10/27/2019 9:00 PM EST Patient left via wheelchair with family member. Pt left with all of documented belongings. * Blane Lei RN - 10/27/2019 2:30 PM EST Patient Name: Glenn Snyder Patient : 1965 Acct: [id number] Date of Admission: 10/19/2019 Room/Bed: 156/1561 Code [...] (Bicarb): 35 Na+ Modeling: Not Applicable Dialyzer: [id number] Dialysate Temperature (C): 36 Blood Flow Rate [...] - Before each treatment: Dialysis Machine No.: [id number] RO Machine No.: [id number] Dialyzer Lot No.: [id number] RO Machine Log Sheet Completed: Yes Machine Alarm Self Test: Completed;Passed (10/27/191409) Machine Autotest: Completed, Passed Air Foam Detector: Tested, Proper Function, pH Reading Extracorporeal Circuit Tested for Integrity: Yes Machine Conductivity: 13.9 Manual Conductivity: 13.7 Machine Ph: 7 Manual Ph: 7 Bleach Test (Neg): Yes Bath Temperature: 96.8 F (36 C) Tubing Lot#: [id number] Conductivity Meter Serial #: [id number] All Connections Secure?: Yes Venous Parameters Set?: [...] 99/71 89 10/27/19 1818 118/88 86 10/27/19 182 127/80 98.9 F (37.2 C) 16 98 [...] Pedraza MD - 10/27/2019 11:26 AM EST [facility] Progress Note SUBJECTIVE: Glenn Snyder [...] Ht 5' 10" (1.778 m) Wt 188 lb12.8 oz (85.6 kg) SpO2 98% BMI 27.09 [...] never had kidney Bx and never saw highway research engineer before BLOSSOM might be from CKD progression [...] . Pt is likely ESRD. Pt on [facility] HD schedule. Last HD session 10/25 Next HD session today Pt has HD spot at [facility]. 2- Hyperkalemia: resolved with HD 3-high anion gap acidosis likely from CKD and BLOSSOM Resolved with HD 4- Hyperphosphatemia: Continue Phosphorus binder 5- HTN: Improved with HD. Continue same BP meds Monitor BP Ok to d/c patient from nephro stand point Will continue to follow Please call if any question at [phone] JEANA PEDRAZA MD 10/27/2019 11:26 AM * [...] never had kidney Bx and never saw highway research engineer before BLOSSOM might be from CKD progression [...] follow Please call if any question at [phone] JEANA PEDRAZA MD 10/26/2019 4:25 PM * Kimber Bajwa RN - 10/26/2019 10:46 AM EST Patient returned from renal biopsy. VSS, see record. Bandaide is dry and intact to right flank area. Patient instructed on need for bedrest until 12:45. * Darell Sanches DO - 10/26/2019 8:19 AM EST Hospitalist Progress Note 10/26/2019 8:19 AM [phone]: Please page me ([phone]) for patient care issues. [phone]: Please page [facility] night Hospitalist for any issues. Subjective: Admit [...] lab Plan -daily weights, I&Os, dialysis per highway research engineer -renal biopsy and dialysis cath pending, highway research engineer following -am labs, replace lytes prn -increase activity -DVT prophylaxis: [] Lovenox [x] Heparin [] SCDs [x] Encourage ambulation [] Already on Anticoagulation Advance Directive: Full Code Discharge planning: Awaiting dialysis cath and renal biopsy. Can be discharge once outpatient dialysis arrangements have been made Darell Sanches DO Division of Hospitalist Medicine Inpatient Medical Services PAGER: [phone] * Ivett Cope RN - 10/25/2019 4:23 [...] and discharge needs Received a call from [facility] regarding pt dialysis chair spot. Was informed [...] 5. Fluid Accumulation-No significant fluid accumulation, 6. Mapping Technician Strength-Normal Nutrition Risk Level: High Nutrient Needs: Estimated Daily Total Kcal: 6354-6719 Estimated Daily Protein (g): 60-90 Estimated Daily Total Fluid (ml/day): per md Nutrition Diagnosis: Problem: Altered nutrition-related lab values, Predicted suboptimal energy intake, Increased nutrient needs Etiology: related to Renal dysfunction ? Signs and symptoms: as evidenced by Known losses from dialysis, Weight loss, Lab values Objective Information: Nutrition-Focused Physical Findings: appetite improved, no edema, bun 39 , creat 9.71, wbc11.7muqzh9.3,on renvela tid- NO DRY WT EST. off [...] kg)(summer 2018) % Weight Change: , na [place] Body Wt: 166 lb (75.3 kg), % [place] Body 121 Adjusted Body Wt: , body [...] EST Hospitalist Progress Note 10/25/2019 5:02 PM [phone]: Please page me ([phone]) for patient care issues. [phone]: Please page [facility] night Hospitalist for any issues. Subjective: Admit [...] lab Plan -daily weights, I&Os, dialysis per highway research engineer -renal biopsy and dialysis cath pending, highway research engineer following -am labs, replace lytes prn -increase activity -DVT prophylaxis: [] Lovenox [x] Heparin [] SCDs [x] Encourage ambulation [] Already on Anticoagulation Advance Directive: Full Code Discharge planning: awaiting dialysis cath and renal biopsy Darell Sanches DO Division of Hospitalist Medicine Inpatient Medical Services PAGER: [phone] * Ramon Mei RN - 10/25/2019 11:46 AM EST Patient Name: Glenn Snyder Patient : 1965 Acct: [id number] Date of Admission: 10/19/2019 Room/Bed: [facility] Code Status: Full Code Allergies: [...] (Bicarb): 35 Na+ Modeling: Not Applicable Dialyzer: [id number] Dialysate Temperature (C): 36 Blood Flow Rate [...] - Before each treatment: Dialysis Machine No.: [id number] RO Machine No.: [id number] Dialyzer Lot No.: [id number] RO Machine Log Sheet Completed: Yes Machine Alarm Self Test: Completed;Passed (10/25/19 1120) Machine Autotest: Completed, Passed Air Foam Detector: Tested, Proper Function, pH Reading Extracorporeal Circuit Tested for Integrity: Yes Machine Conductivity: 14 Manual Conductivity: 14.1 Machine Ph: 7 Manual Ph: 7 Bleach Test (Neg): Yes Bath Temperature: 96.8 F (36 C) Tubing Lot#: [id number] Conductivity Meter Serial #: [id number] All Connections Secure?: Yes Venous Parameters Set?: Yes Arterial Parameters Set?: Yes Saline Line Double Clamped?: Yes Air Foam Detector Engaged?: Yes Machine Functioning Alarm Free? Yes Prime Given: 200ml Chlorine Testing - Before each treatment and every 4 hours: Treatment Treatment Number: 4 Time On: 1124 Time Off: 4 Treatment Goal: 2500 Weight: 188 lb 12.8 [...] Evaluate (10/25/19 124) Provider Name: Keila (10/25/19 1245) Provider Notification: Physician (10/25/19 124) Method of Communication: Call (10/25/19 124) Response: No new orders (10/25/191244) Notification Time: 1224 (10/25/19 124) Handoff complete [...] Pedraza MD - 10/25/2019 7:58 AM EST [facility] Progress Note SUBJECTIVE: Glenn Snyder [...] never had kidney Bx and never saw highway research engineer before BLOSSOM might be from CKD progression [...] follow Please call if any question at [phone] JEANA PEDRAZA MD 10/25/2019 7:58 AM * [...] EST Hospitalist Progress Note 10/24/2019 11:38 AM [phone]: Please page me ([phone]) for patient care issues. [phone]: Please page [facility] night Hospitalist for any issues. Subjective: Admit [...] lab Plan -daily weights, I&Os, dialysis per highway research engineer -renal biopsy and dialysis cath pending, highway research engineer following -am labs, replace lytes prn -increase activity -DVT prophylaxis: [] Lovenox [x] Heparin [] SCDs [x] Encourage ambulation [] Already on Anticoagulation Advance Directive: Full Code Discharge planning: ok to discharge today pending renal biopsy and dialysis cath placement Darell Sanches DO Division of Hospitalist Medicine Inpatient Medical Services PAGER: [phone] * Ivett Cope RN - 10/24/2019 10:48 AM EST Microbiology called, pt has 3x blood cultures drawn on 10/19. One came back with Gram positive rods.[employer] message sent to [facility] Dr Sanches regarding results * Jeana Pedraza [...] never had kidney Bx and never saw highway research engineer before BLOSSOM might be from CKD progression [...] follow Please call if any question at [phone] JEANA PEDRAZA MD 10/24/2019 9:15 AM * Radha Foreman RN - 10/23/2019 7:21 PM EST Patient Name: Glenn Snyder Patient : 1965 Acct: [id number] Date of Admission: 10/19/2019 Room/Bed: 222/2225 Code [...] Negative HBsAb: Date Drawn: HBsAb not drawn applicable, 2019 Results: Unknown Order Dialysis Bath K+ (Potassium): 2 Ca+ (Calcium): 2.5 Na+ (Sodium): 138 HCO3 (Bicarb): 35 Na+ Modeling: Not Applicable Dialyzer: [id number] Dialysate Temperature (C): 35 Blood Flow Rate [...] - Before each treatment: Dialysis Machine No.: [id number] RO Machine No.: [id number] Dialyzer Lot No.: [id number] RO Machine Log Sheet Completed: Yes Machine Alarm Self Test: Completed;Passed (10/23/191709) Machine Autotest: Completed, Passed Air Foam Detector: Tested, Proper Function, pH Reading Extracorporeal Circuit Tested for Integrity: Yes Machine Conductivity: 13.7 Manual Conductivity: 13.6 Machine Ph: 7 Manual Ph: 7 Bleach Test (Neg): Yes Bath Temperature: 95 F (35 C) Tubing Lot#: [id number] Conductivity Meter Serial #: [id number] All Connections Secure?: Yes Venous Parameters Set?: [...] from secondary) Comment", Waited for RN supervisor dry cell assembly for 2nd water check. Access Flows and [...] states he feels somewhat lightheaded Yes 10/23/19 215 1294 ml Tx completed. Yes Vital Signs [...] Patel MD - 10/23/2019 4:54 PM EST [facility] Progress Note SUBJECTIVE: Glenn Snyder [...] Date Noted Acute renal failure (ARF) ([facility]) 10/19/2019 ASSESSMENT/PLAN: 1. Renal failure, most likely chronic. Discussed with patient in detail. 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 Currently not working. 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 Apparently he was admitted at a hospital in [place] about 5 years ago and had cystoscopy [...] EST Hospitalist Progress Note 10/23/2019 5:02 PM [phone]: Please page me ([phone]) for patient care issues. [phone]: Please page [facility] night Hospitalist for any issues. Subjective: Admit Date: 10/19/2019 PCP: No primary care provider on file. Room#: 222/222 Interval History: No overnight issues. Denies chest [...] anemia Plan -daily weights, I&Os, dialysis per highway research engineer -renal biopsy and temp dialysis cath pending, highway research engineer to arrabge -am labs, replace lytes prn -increase activity -DVT prophylaxis: [] Lovenox [x] Heparin [] SCDs [x] Encourage ambulation [] Already on Anticoagulation Advance Directive: Full Code Discharge planning: likely discharge in next 24 hours Darell Sanches DO Division of Hospitalist Medicine Inpatient Medical Services PAGER: [phone] * Darell Sanches DO - 10/22/2019 2:17 PM EST Hospitalist Progress Note 10/22/2019 2:17 PM [phone]: Please page me ([phone]) for patient care issues. [phone]: Please page [facility] night Hospitalist for any [...] anemia Plan -daily weights, I&Os, dialysis per highway research engineer -discussed with patient and he is willing to have the renal bx done. Will notify highway research engineer -am labs, replace lytes prn -increase activity -DVT prophylaxis: [] Lovenox [x] Heparin [] SCDs [x] Encourage ambulation [] Already on Anticoagulation Advance Directive: Full Code Discharge planning: likely discharge in next 1-2 days after renal biopsy Darell Sanches DO Division of Hospitalist Medicine Inpatient Medical Services PAGER: [phone] * Randolph Liz MD - 10/22/2019 12:46 PM EST [facility] [address] [place], [place] [id number] Progress Note Subjective: Patient seen and examined [...] EST Hospitalist Progress Note 10/21/2019 10:35 PM [phone]: Please page me ([phone]) for patient care issues. [phone]: Please page [facility] night Hospitalist for any [...] bolus, 20 mL, Intravenous, Once, Delon Jessica, MAKEUP SALES CONSULTANT - HAND I BLOCKER hydrALAZINE (APRESOLINE) injection 10 mg, 10 mg, [...] of Hospitalist Medicine Inpatient Medical Services PAGER: [phone] * Randolph Liz MD - 10/21/2019 1:44 PM EST [facility] [address] [place], [place] [id number] Progress Note Subjective: Patient seen and examined [...] po Randolph Liz M.D 10/21/2019 1:45 PM ELENA * Christelle Wolfe I RN - 10/21/2019 10:23 AM EST Patient Name: Glenn Snyder Patient : 1965 Acct: [id number] Date of Admission: 10/19/2019 Room/Bed: 222/2225 Code [...] HCO3 (Bicarb): 35 Na+ Modeling: NA Dialyzer: [id number] Dialysate Temperature (C): 36 Blood Flow Rate [...] Regular Unlabored None (Room air) Expiratory wheezes [place] Dry;Warm Distended;Rounded;Soft Audible Generalized 0 10/21/19 1300 0 3 Regular Unlabored None (Room air) Clear;Diminished [place] Dry;Warm Distended;Rounded;Soft Active Generalized 0 Labs Recent Labs 10/19/19 1529 10/20/19 0408 10/20/19 0529 10/20/19 1847 10/21/19 0532 WBC 8.3 9.0 -- -- 9.8 HGB 9.1* 6.6* 6.7* 9.0* 9.7* HCT 26.9* 19.3* 19.6* 25.2* 27.6* PLT 246 267 -- -- 299 Recent Labs 10/20/19 0408 10/20/19 18410/21/19 0532 NA 136 135 135 K 4.7 4.0 4.9 CL 95* 94* 94* CO2 25 BUN 123* 76* 83* CREATININE 13.53* 9.40* 11.16* GLUCOSE 102* 110* 103* IV Drips and Rate/Dose Safety - Before each treatment: Dialysis Machine No.: [id number] RO Machine No.: [id number] Dialyzer Lot No.: [id number] RO Machine Log Sheet Completed: Yes Machine Alarm Self Test: Completed;Passed (10/21/19 0940) Machine Autotest: Completed, Passed Air Foam Detector: Tested, Proper Function, pH Reading Extracorporeal Circuit Tested for Integrity: Yes Machine Conductivity: 13.7 Manual Conductivity: 13.8 Machine Ph: 7 Manual Ph: 7 Bleach Test (Neg): Yes Bath Temperature: 96.8 F (36 C) Tubing Lot#: [id number] Conductivity Meter Serial #: [id number] All Connections Secure?: Yes Venous Parameters Set?: [...] Name: Glenn Snyder Patient : 1965 Acct: [id number] Date of Admission: 10/19/2019 Room/Bed: [facility]/2225 Code Status: Full Code Allergies: No Known [...] (Bicarb): 35 Na+ Modeling: Not Applicable Dialyzer: [id number] Dialysate Temperature (C): 36 Blood Flow Rate [...] x3 Regular Unlabored None (Room air) Clear [place] Dry;Warm Good Soft Active None 0 10/20/19 [...] - Before each treatment: Dialysis Machine No.: [id number] RO Machine No.: [id number] Dialyzer Lot No.: [id number] RO Machine Log Sheet Completed: Yes Machine Alarm Self Test: Completed;Passed (10/20/191524) Machine Autotest: Completed, Passed Air Foam Detector: Tested, Proper Function, pH Reading Extracorporeal Circuit Tested for Integrity: Yes Machine Conductivity: 13.6 Manual Conductivity: 13.6 Machine Ph: 7 Manual Ph: 7 Bleach Test (Neg): Yes Bath Temperature: 96.8 F (36 C) Tubing Lot#: [id number] Conductivity Meter Serial #: [id number] All Connections Secure?: Yes Venous Parameters Set?: [...] Pedraza MD - 10/20/2019 2:42 PM EST [facility] Progress Note SUBJECTIVE: Glenn Snyder [...] never had kidney Bx and never saw highway research engineer before BLOSSOM might be from CKD progression [...] follow Please call if any question at [phone] JEANA PEDRAZA MD 10/20/2019 2:43 PM * Dorcas Chin APRN - HAND I BLOCKER - 10/20/2019 12:03 PM EST Patient transferred [...] []Injected [x]Non-Injected / Pinnae [x]Normal []Other/ Dentitian [][place] Teeth []Dentures Oral Mucosa [x][place] [x]Moist []Dry/ Oral ETT []Present [x]Absent Neck: [...] [x]Absent/ GUAN ([x]RUE [x]RLE [x]LUE [x]LLE) Neurologic: [place] []Yes [x]No Corneal reflexes []Present []Absent / [...] Ordering Physician MD ENCARNACION MATTHEW Accession Number [id number] CPT4 Codes 75596 () Reason For Exam line placement/vascath Report [...] [] SC Heparin [] SCD * AlineEllie, NIKKY, LD - 10/20/2019 11:00 AM EST [...] 5. Fluid Accumulation-No significant fluid accumulation, 6. Mapping Technician Strength-Not measured Nutrition Risk Level: High Nutrient Needs: Estimated Daily Total Kcal: 0398-3164 Estimated Daily Protein (g): 60-90 Estimated Daily Total Fluid (ml/day): per Nutrition Diagnosis: Problem: Altered nutrition-related lab values, [...] Wt: (na) % Weight Change: , na [place] Body Wt: 166 lb (75.3 kg), % [place] Body 132 Adjusted Body Wt: , body [...] Name: Glenn Snyder Patient : 1965 Acct: [id number] Date of Admission: 10/19/2019 Room/Bed: Code Status: No Order Allergies: No Known [...] (Bicarb): 40 Na+ Modeling: Not Applicable Dialyzer: [id number] Dialysate Temperature (C): 36 Blood Flow Rate [...] - Before each treatment: Dialysis Machine No.: [id number] RO Machine No.: [id number] Dialyzer Lot No.: [id number] RO Machine Log Sheet Completed: Yes Machine Alarm Self Test: Completed;Passed (10/19/19 1245) Machine Autotest: Completed, Passed Air Foam Detector: Proper Function, Tested, pH Reading Extracorporeal Circuit Tested for Integrity: Yes Machine Conductivity: 13.8 Manual Conductivity: 13.7 Machine Ph: 7 Manual Ph: 7 Bleach Test (Neg): Yes Bath Temperature: 96.8 F (36 C) Tubing Lot#: [id number] Conductivity Meter Serial #: [id number] All Connections Secure?: Yes Venous Parameters Set?: [...] to Education: Verbalized Understanding documented in this [facility] Work Phone: [phone] 498-737801-31-2020 Hospital course Narrative* Myron Darell, DO - [...] to presentation. Admitted to ICU, seen by highway research engineer and HD initiated. Stabilized and transferred out [...] Medications: Glenn Snyder Home Medication Instructions JOSE M:[id number] Printed on:10/27/19 1123 Medication Information amLODIPine (NORVASC) 5 MG tablet Take 1 tablet by mouth daily metoprolol tartrate (LOPRESSOR) 25 MG tablet Take 0.5 tablets by mouth 2 times daily sevelamer (RENVELA) 800 MG tablet Take 2 tablets by mouth 3 times daily (with meals) Recommended Follow-up: highway research engineer In 3 weeks post hospital fu appt Brenton Mckeon MD [address] [facility] [address] In 2 weeks post hospital fu appt Readmission Risk Risk of Unplanned Readmission: 15 Complexity of Follow up: ? Moderate Complexity: follow up within 7-14 calendar days (04848) ? Severe Complexity: follow up within 7 calendar days (54579) Follow up Testing, Pending results or Referrals [...] frame. Signed: Darell Sanches DO [facility] 10/27/2019, 11:23 AM documented in this [facility] Work Phone: [phone] Hospital Discharge instructions* Discharge Instr - Activity* [...] most local grocery stores, pharmacies, and chain [employer]ores. ? If you have any questions about your diet or nutrition, call the hospital and ask for the dietitian. * Discharge Instr - Lab* Sophia Bai RN - 10/24/2019 2:21 PM EST [facility] [phone] offer services including medical, dental, [facility], behavioral health and a reduced-rate pharmacy. Fees are based on current income and family size. Please refer to your handout for additional information and all location options. [facility] [place] [address] [place] [address] Wednesday 8 AM 6 PM Wednesday 8 AM 2 PM Hemodialysis will be Wednesday, Wednesday and Wednesday at [facility] located at [address] [place], [place] [id number] or [phone] Please arrive at 9:45 am * Additional [...] through Care Everywhere. * Kidney Biopsy: Post-op (Malagasy) [facility] Work Phone: Evaluation note* Diagnosis Acute [...] rectum and anus [facility] Diagnosis Other iron deficiency anemia- Primary Rectal bleeding Hemorrhage of rectum and anus [facility]* Diagnosis Skin sore- Primary ESRD (end stage renal disease) on dialysis (HCC) End stage renal disease [facility] Diagnosis New onset a-fib (CMS/HCC) [...] abuse Tobacco use disorder ESRD on hemodialysis ([facility]/HCC) (HCC) Paroxysmal A-fib (CMS/HCC) (HCC)- Primary Nonrheumatic aortic valve stenosis Tobacco abuse Tobacco use disorder Alcohol use disorder in remission Acute respiratory failure with hypoxia ([facility])- Primary Atrial flutter, unspecified type (HCC) Pulmonary [...] of abdominal surgery [facility] Diagnosis Paroxysmal A-fib (CMS/HCC) [...] pulmonale present (HCC) [facility]* Diagnosis Paroxysmal A-fib (CMS/HCC) (HCC)- [...] disorder in remission [facility] Diagnosis Paroxysmal A-fib (CMS/HCC) [...] respiratory syncytial virus (RSV) ESRD on hemodialysis ([facility]) ([facility]) Pulmonary embolism, other, unspecified chronicity, unspecified whether acute cor pulmonale present (HCC) Nonrheumatic aortic valve stenosis documented in this encounter [facility]* Diagnosis Paroxysmal A-fib (CMS/HCC) (HCC)- Primary Nonrheumatic aortic valve stenosis Primary hypertension Unspecified essential hypertension ESRD on hemodialysis ([facility]) ([facility]) Calcification of abdominal aorta (HCC) Tobacco abuse Tobacco use disorder Nonrheumatic aortic valve stenosis- Primary Paroxysmal A-fib (CMS/HCC) ([facility]) Primary hypertension Unspecified essential hypertension Calcification of abdominal aorta (HCC) Tobacco abuse Tobacco use disorder ESRD on hemodialysis ([facility]) ([facility]) Paroxysmal A-fib ([facility]/HCC) (HCC)- Primary Nonrheumatic aortic valve stenosis Tobacco abuse Tobacco use disorder Alcohol use disorder in remission Acute respiratory failure with hypoxia (HCC)- Primary Tracheostomy dependence (HCC) Tracheostomy status RSV (acute bronchiolitis due to respiratory syncytial virus) Acute bronchiolitis due to respiratory syncytial virus (RSV) Leg DVT (deep venous thromboembolism), acute, left (HCC) Nonrheumatic aortic valve stenosis documented in this encounter [facility]* Diagnosis Paroxysmal A-fib (CMS/HCC) (HCC)- Primary Nonrheumatic aortic valve stenosis Primary hypertension Unspecified essential hypertension ESRD on hemodialysis ([facility]) ([facility]) Calcification of abdominal aorta (HCC) Tobacco abuse Tobacco use disorder Nonrheumatic aortic valve stenosis- Primary Paroxysmal A-fib (CMS/HCC) (HCC) Primary hypertension Unspecified essential hypertension Calcification of abdominal aorta (HCC) Tobacco abuse Tobacco use disorder ESRD on hemodialysis ([facility]/HCC) (HCC) Paroxysmal A-fib (CMS/HCC) (HCC)- Primary Nonrheumatic aortic valve stenosis Tobacco abuse Tobacco use disorder Alcohol use disorder in remission Acute respiratory failure with hypoxia (HCC) [J96.01]- Primary Tracheostomy dependence ([facility]) [Z93.0] Tracheostomy status LRTI (lower respiratory tract [...] of abdominal surgery documented in this encounter [facility]* Diagnosis Paroxysmal A-fib (CMS/HCC) (HCC)- [...] region, unstageable (HCC) [facility]* Diagnosis Paroxysmal A-fib (CMS/HCC) [...] not elsewhere classified documented [facility] this [facility]* Diagnosis Paroxysmal A-fib (CMS/HCC) [...] osteomyelitis (CMS/HCC) (HCC) documented in this encounter [facility]* Diagnosis Paroxysmal A-fib (CMS/HCC) (HCC)- [...] remission Acute respiratory failure with hypoxia ([facility]) [J96.01]- Primary Tracheostomy care ([facility]) [Z43.0] Attention to tracheostomy Pulmonary embolism, other, unspecified chronicity, unspecified whether acute cor pulmonale present ([facility]) documented in this encounter [facility]* Diagnosis Paroxysmal A-fib (CMS/HCC) (HCC)- [...] with hypoxia (HCC) [J96.01]- Primary Tracheostomy dependence ([facility]) [Z93.0] Tracheostomy status Pulmonary embolism, other, unspecified [...] region, unstageable (HCC) [facility] this [facility]* Diagnosis Paroxysmal A-fib (CMS/HCC) [...] Decubitus ulcer of sacral region, unstageable (HCC) half-way (current) use of antibiotics documented [facility]* Diagnosis Paroxysmal A-fib (CMS/HCC) [...] remission Acute respiratory failure with hypoxia ([facility]) [J96.01]- Primary Tracheostomy dependence ([facility]) [Z93.0] Tracheostomy status Pulmonary embolism, other, unspecified chronicity, unspecified whether acute cor pulmonale present (HCC) documented in this encounter [facility]* Diagnosis Paroxysmal A-fib (CMS/HCC) (HCC)- [...] respiratory syncytial virus (RSV) Tracheostomy dependence ([facility]) Tracheostomy status Acute respiratory failure with hypoxia ([facility]) [J96.01] Leg DVT (deep venous thromboembolism), acute, left ([facility]) Pulmonary embolism, unspecified chronicity, unspecified pulmonary embolism type, unspecified whether acute cor pulmonale present ([facility]) S/P AVR documented in this encounter [facility]* Diagnosis Paroxysmal A-fib (CMS/HCC) (HCC)- [...] aureus (MSSA), unspecified part of lung ([facility]) Acute respiratory failure with hypoxia ([facility]) [J96.01] Nonrheumatic aortic valve stenosis Pulmonary embolism, unspecified chronicity, unspecified pulmonary embolism type, unspecified whether acute cor pulmonale present ([facility]) documented [facility]* Diagnosis Paroxysmal A-fib (CMS/HCC) [...] Primary Tracheostomy status ESRD on hemodialysis (CMS/HCC) ([facility]) director long term care (current) use of antibiotics Decubitus ulcer of [...] remission Acute respiratory failure with hypoxia ([facility]) [J96.01]- Primary RSV (acute bronchiolitis due to respiratory syncytial virus) Acute bronchiolitis due to respiratory syncytial virus (RSV) Tracheostomy dependence (HCC) Tracheostomy status Leg DVT (deep venous thromboembolism), acute, left (HCC) Pulmonary embolism, unspecified chronicity, unspecified pulmonary embolism type, unspecified whether acute cor pulmonale present ([facility]) S/P AVR documented [facility] [...] Decubitus ulcer of sacral region, unstageable (HCC) director long term care (current) use of antibiotics [facility] noteNo assessment information availableWOhioHealth [facility] Work Phone: Evaluation note* Diagnosis Paroxysmal [...] hypoxia (HCC) [J96.01] documented in this encounter [facility]* Diagnosis Paroxysmal A-fib (CMS/HCC) (HCC)- [...] malnutrition (CMS/HCC) (HCC) [facility]* Diagnosis Paroxysmal A-fib (CMS/HCC) [...] Renal dialysis status [facility] [...] use disorder Alcohol use disorder in remission ESRD on hemodialysis (CMS/HCC) (HCC)- Primary Contusion of dorsum of right hand documented in this encounter [facility]* Diagnosis Paroxysmal A-fib (CMS/HCC) (HCC)- [...] use disorder Alcohol use disorder in remission Hemoptysis documented in this encounter [facility]* Diagnosis Paroxysmal A-fib (CMS/HCC) (HCC)- [...] use disorder Alcohol use disorder in remission Supratherapeutic INR- Primary Necrosis (HCC) Gangrene [facility] instructions* Instructions* Fabiola Huitron RN [...] or dog food bags, or a vacuum waste cotton cleaner. Your dressing will be removed at [...] call and ask for the Interventional Radiologist regional dedicated truck driver. Where can you learn more? Go to [email or web address] and sign in to your zulily account. Enter P616 in the Search Health Information box to learn more about Hemodialysis Access: What to Expect at Home. If you do not have an account, please click on the "Sign Up Now" link. Current as of: August 12, 2016 Content Version: 11.2 9131-6489 Healthwise, [employer]orporated. Care instructions adapted under license by [facility]. If youhave questions about a medical condition or this instruction, always ask your healthcare professional. [employer] disclaims any warranty or liability for your use of this information. documented in this [facility] Work Phone: Reason for referral (narrative)* Outpatient Procedure (Routine) - Authorized Specialty Diagnoses / Procedures Referred By Contac t Referred To Contact [facility] Diagnoses Acute blood loss anemia Rectal bleeding Procedures COLONOSCOPY DIAGNOSTIC COLONOSCOPY FLX DX W/COLLJ SPEC WHEN Rudy Buitrago MD [address] [facility] [place] [address] [facility] [address] [place] [address] Referral ID Status Reason Start Date Expiration Date Visits Requested Visits Authorized [id number] Authorized Auto-Generat ed Referral 12/25/2021 12/25/2022 1 1 [place] for referral (narrative)* Outpatient Procedure (Routine) - Authorized Specialty Diagnoses / Procedures Referred By Contac t Referred To Contact [facility] Diagnoses Other iron deficiency anemia Rectal bleeding Procedures COLONOSCOPY DIAGNOSTIC COLONOSCOPY FLX DX W/COLLJ SPEC WHEN Rudy Buitrago MD [address] [place] [address] [facility] [address] [place] [address] Referral ID Status Reason Start Date Expiration Date Visits Requested Visits Authorized [id number] Authorized Auto-Generat ed Referral 12/30/2021 12/30/2022 1 1 [place] for referral (narrative)* Consultation (Routine) - Pending Review Specialty Diagnoses / Procedures Referred By Contac t Referred To Contact Wound Care Diagnoses Skin sore Procedures MO OFFICE/OUTPATIENT NEW HIGH MDM 60-74 MINUTES Jese Frank MD [address] [place] [address] [facility] Op Wnd Ostomy [address] [place] [address] Referral ID Status Reason Start Date Expiration Date Visits Requested Visits Authorized [id number] Pending Review Specialty Services Required 05/01/2023 04/30/[address] [facility] (narrative)No reason for referral information availableWOhioHealth O'[facility] Work Phone: Reason for visit Narrative* Auth/Cert (Routine) Specialty Diagnoses / Procedures Referred By Manny dodd Referred To Contact Diagnoses Atrial flutter, unspecified type (HCC) Procedures . Ramón Romano MD [address] [place] [address] Phone: tel: fax: [facility] ED [address] [place] [address] Phone: tel: Referral ID Status Reason Start Date Expiration Date Visits Re quested Visits Authorized [id number] [address] [facility] for visit Narrative* Imaging (Routine) - Closed Specialty Diagnoses / Procedures Referred By Manny dodd Referred To Contact Radiology Diagnoses Hemoptysis Procedures CT chest wo IV contrast Elly Jett [place] [place] [address] Phone: tel: fax: [facility] [address] [facility] [address] [facility] [address] [place] [id number] Phone: tel: fax: Referral ID Status Reason Start Date Expiration Date Visits Re quested Visits Authorized [id number] Closed 02/23/2025 02/23/2026 1 1 [facility] Assessments Diagnosis Chronic kidney disease, stage V (HCC) Chronic kidney disease, Stage V Diagnosis Preoperative testing Preoperative examination, unspecified Hypertensive kidney disease with CKD stage IV (HCC) Unspecified hypertensive kidney disease with chronic kidney disease stage I through stage IV, or unspecified History of Present Illness * Brandy Lind RN - 10/17/2020 8:00 AM EST Removed [...] Documents on File Type Date Recorded Patient [facility] Sewer Expl anation Advance Directive(s) 11/22/2020 11:20 AM Advance Directive(s) 06/12/2020 8:15 AM Advance Directive(s) 03/20/2020 7:16 AM Documents on File Type Date Recorded Patient [employer] Sewer Expl anation Advance Directive(s) 11/22/2020 11:20 AM Advance Directive(s) 06/12/2020 8:15 AM Advance Directive(s) 03/20/2020 7:16 AM Documents on File Type Date Recorded Patient [facility] Sewer Expl anation Power of Stem Teacher 02/14/2023 1:37 PM Advance Directives and Livin g Will 02/14/2023 1:37 PM Documents on File Type Date Recorded Patient [facility] Sewer Expl anation Power of Stem Teacher 02/14/2023 1:37 PM Advance Directives and Livin [...] Documents on File Type Date Recorded Patient [facility] Sewer Expl anation Advance Directives and Livin g Will 10/03/2024 11:27 AM Power of Stem Teacher 02/14/2023 1:37 PM Advance Directives and Livin g Will 02/14/2023 1:37 PM Date Activated Date Inactivated Comments 10/03/2024 6:19 PM Date Activated Date Inactivated Comments 08/17/2023 12:04 AM 08/17/2023 5:18 PM Documents on File Type Date Recorded Patient [facility] Sewer Expl anation Advance Directives and Livin g Will 10/03/2024 11:27 AM Power of Stem Teacher 02/14/2023 1:37 PM Advance Directives and Livin [...] Documents on File Type Date Recorded Patient [facility]one Sewer Expl anation Power of Stem Teacher 01/24/2025 12:29 PM Advance Directives and Livin g Will 10/03/2024 11:27 AM Power of Stem Teacher 02/14/2023 1:37 PM Advance Directives and Livin [...] Lillian Child Health Care Agent Toma Mcneil [facility] First Alternate Health Care Agent Documents on File Type Date Recorded Patient [facility] Sewer Expl anation Power of Stem Teacher 01/24/2025 12:29 PM Advance Directives and Livin g Will 10/03/2024 11:27 AM Power of Stem Teacher 02/14/2023 1:37 PM Advance Directives and Livin [...] Lillian Child Health Care Agent Toma Mcneil [facility] First Alternate Health Care Agent Healthcare Agents on File Name Relationship Healthcare Agent Relationshi p Communication Omar Lillian Child Health Care Agent [facility] Alternate Health Care Agent Healthcare Agents [...] Lillian Child Health Care Agent Toma Mcneil [facility] First Alternate Health Care Agent Healthcare Agents on File Name Relationship Healthcare Agent Relationshi p Communication Omar Lillian Child Health Care Agent Toma Mcneil [facility] Alternate Health Care Agent Documents on File Type Date Recorded Patient [facility] Sewer Expl anation Power of Stem Teacher 01/24/2025 12:29 PM Omar Lillian Advance Directives and Livin g Will 10/03/2024 11:27 AM Power of Stem Teacher 02/14/2023 1:37 PM Advance Directives and Livin [...] Lillian Child Health Care Agent Toma Mcneil [facility] Alternate Health Care Agent Healthcare Agents on File Name Relationship Healthcare Agent Relationshi p Communication Omar Lillian Child Health Care Agent [facility] Altern[facility] Health Care Agent Documents on File Type Date Recorded Patient [facility] Sewer Expl anation Power of Stem Teacher 01/24/2025 12:29 PM Omar Lillian Advance Directives and Livin g Will 10/03/2024 11:27 AM Power of Stem Teacher 02/14/2023 1:37 PM Advance Directives and Livin [...] Tarun Partner First Alternate Health Care Agent Summary Purpose Family History No Family History Records FoundNo Family History Records FoundNo Family History Records FoundNo Family History Records FoundNo Family History Records FoundNo Family History Records Found Reason for Referral Specialty Diagnoses / Procedures Referred By Contjayant t Referred To Contact Radiology Diagnoses Nicotine dependence, cigarettes, uncomplicated Personal history of nicotine dependence Procedures CT lung screening low dose Fransisco Pineda, MAKEUP SALES CONSULTANT [address] [place] [address] Referral ID Status Reason Start Date Expiration Date V isits Requested Visits Authorized [id number] Authorized 09/07/2023 09/06/2024 1 1 Chief Complaint and Reason for Visit Chief Complaint Admit Date LABWORK February 05, 2025 5:56a m Chief Complaint Admit Date LABWORK February 05, 2025 5:56a m LABOWRK February 07, 2025 5:00a m CARE HOME LAB WORK February 15, 2025 5:0 0am CARE HOME LAB WORK February 20, 2025 4:0 0am Chief Complaint Admit Date LABWORK February 05, 2025 5:56a m LABOWRK February 07, 2025 5:00a m Chief Complaint Admit Date LABWORK February 05, 2025 5:56a m LABOWRK February 07, 2025 5:00a m CARE HOME LAB WORK February 08, 2025 5:0 0am CARE HOME LAB WORK February 12, 2025 5:0 0am CARE HOME LAB WORK February 13, 2025 5:0 0am CARE HOME LAB WORK February 15, 2025 5:0 0am [facility] February 20, 2025 4:0 0am Additional Source Comments Source Comments (unrecognize d section and content) In the event this informatio n is protected by the Federal Confidentiality of Alcohol and Drug Abuse Patient Records regulations: The Federal rules restrict any use of the information to criminally investigate or prosecute any alcohol or drug abuse patient.[facility] the event this information is protected by the Federal Confidentiality of Alcohol and Drug Abuse Patient Records regulations: The Federal rules restrict any use of the information to criminally investigate or prosecute any alcohol or drug abuse patient.[facility] the event this information is protected by the Federal Confidentiality of Alcohol and Drug Abuse Patient Records regulations: The Federal rules restrict any use of the information to criminally investigate or prosecute any alcohol or drug abuse patient.[facility] Hospital[facility] the event this information is protected by the Federal Confidentiality of Alcohol and Drug Abuse Patient Records regulations: The Federal rules restrict any use of the information to criminally investigate or prosecute any alcohol or drug abuse patient.[facility] the event this information is protected by the Federal Confidentiality of Alcohol and Drug Abuse Patient Records regulations: The Federal rules restrict any use of the information to criminally investigate or prosecute any alcohol or drug abuse patient.[facility] Hospital[facility] the event this information is protected by the Federal Confidentiality of Alcohol and Drug Abuse Patient Records regulations: The Federal rules restrict any use of the information to criminally investigate or prosecute any alcohol or drug abuse patient.[facility] Hospital[facility] the event this information is protected by the Federal Confidentiality of Alcohol and Drug Abuse Patient Records regulations: The Federal rules restrict any use of the information to criminally investigate or prosecute any alcohol or drug abuse patient.[facility] Hospital[facility] the event this information is protected by the Federal Confidentiality of Alcohol and Drug Abuse Patient Records regulations: The Federal rules restrict any use of the information to criminally investigate or prosecute any alcohol or drug abuse patient.[facility] (unrecognized sect ion and content) No Status Records FoundNo Status Records FoundNo Status Records FoundNo Status Records FoundNo Status Records FoundNo Status Records Found INFORMATION SOURCE (unrecogn ized section and content) DATE CREATED AUTHOR 11/26/2020 [facility] DATE CREATED AUTHOR AUTHOR'S ORGANIZ ATION 09/18/2021 [facility] DATE CREATED AUTHOR AUTHOR'S ORGANIZ ATION 12/18/2022 [facility] DATE CREATED AUTHOR AUTHOR'S ORGANIZ ATION 04/16/2024 [facility] DATE CREATED AUTHOR AUTHOR'S ORGANIZ ATION 04/09/2025 [facility] DATE CREATED AUTHOR AUTHOR'S ORGANIZ ATION 04/17/2025 [facility] Continuous Active and Recently Administ ered [...] 0900 0925 (Given - Provid er: Jayesh Sotomayor, SWEETIE) metoprolol succinate XL (Toprol-XL) 24 hr tablet [...] sodium chloride 0.9 % 100 mL IVPB (Add-Leroy) 3,000 mg, IntraVENous, at 200 mL/hr, Administer over 30 Minutes, Every 24 hours, First dose on Brigid 01/25/25 at 1700, ADD-Leroy bag, Suspected Indication (Select all that apply): [...] sodium chloride 0.9 % 100 mL IVPB (Add-Leroy) (CANCELED) 3,000 mg, IntraVENous, at 200 mL/hr, Administer over 30 Minutes, Every 24 hours, First dose on Brigid 5/8/25 at 1030, For 13 days, ADD-Leroy bag, Suspected Indication (Select all that apply): [...] 1 dose 1645 (Given - Provider: Angella Ley, SWEETIE) warfarin (Coumadin) tablet 0.5 mg 0.5 mg, [...] Jun Borrero MD) lidocaine-EPINEPHrine (Xylocaine W/EPI) 1 %-[id number] injection (COMPLETED) As needed, Starting on Wed01/30/25 [...] pupils, Starting on Wed01/19/25 at 0614, +++notify regional dedicated truck driver provider if used+++ oxyCODONE (Roxicodone) immediate release [...] Ochoa Johnson, RN) 0913 (Given - Provider: Tyson Freeman, [...] Ave Arnold RN)0530 (Stopped - Provider: Ave Arnold, RN)0825 (New Bag - Provider: Shasta Sinclair [...] Freeman, SWEETIE)1034 (New Bag - Provider: Tyson Freeman RN)1425 (Stopped - Provider: Tyson Freeman RN)1600 (Canceled Entry - Provider: Automatic Discharge Provider - Comment: Automatically canceled at discontinue of medication order) QUEtiapine (SEROquel) tablet 25 mg 25 mg, Oral, Nightly, First dose (after last modification) on 02/24/25 at 2200 2120 (Given - Provider: Rudolph Najera RN) 212 (Given - Provider: Rosio Bey RN) sevelamer [...] refused) 0913 (Given - Provider: Tyson Freeman, SWEETIE)1305 (Not Given - Provider: Tyson Freeman RN [...] 0203 (Rate/Dose Verify - Provider: Rudolph Najera, SWEETIE)0204 (New Bag - Provider: Rudolph Najera RN)0727 (Handoff - Provider: Ochoa Johnson, SWEETIE)1032 (Handoff - Provider: Ochoa Johnson, RN)1920 (Handoff - Provider: Susanna Jacskon RN) 0222 (New Bag - Provider: Rosio [...] sedation for opioid reversal - MUST notify regional dedicated truck driver provider immediately after first dose, may give [...] Bey, SWEETIE) 0936 (Given - Provider: Whitney Dobbins RN)2123 (Given - Provider: Mir Cannon RN) 0843 [...] (Given - Provid er: Michelle Nunes RN) Scheduled Medication Order 04/15/2025 04/16/2025 04/17/2025 phytonadione (Vitamin K) tablet 5 mg (COMPLETED) 5 mg, Oral, Once, On Wed04/17/25 at 1100, For 1 dose 1114 (Given - Provid er: Jade Palencia RN) Care Teams (unrecognized sec tion and content) Surgery Scheduler Relationship Specialty Start Date End Date Daryn oLomis MD [facility], [place] [address] PCP - General Family Medicine 12/18/20 Surgery Scheduler Relationship Specialty Start Date End Date Candido Starr MD [address] [phone] Nephrology 02/22/20 Surgery Scheduler Relationship Specialty Start Date End Date Candido Starr MD [address] [place] [address] Nephrology 02/22/20 Surgery Scheduler Relationship Specialty Start Date End Date Candido Starr MD [address] [place] [address] Nephrology 02/22/20 Surgery Scheduler Relationship Specialty Start Date End Date Daryn Loomis MD [facility] [place] [address] PCP - General 12/18/20 Surgery Scheduler Relationship Specialty Start Date End Date Daryn Loomis MD [address] [place] [phone] PCP - General 12/18/20 Surgery Scheduler Relationship Specialty Start Date End Date Daryn Loomis MD [address] [place] [phone] PCP - General 12/18/20 Surgery Scheduler Relationship Specialty Start Date End Date Daryn Loomis MD [address] [place] [phone] PCP - General 12/18/20 Surgery Scheduler Relationship Specialty Start Date End Date Daryn Loomis MD [facility] [place] [address] PCP - General 12/18/20 Surgery Scheduler Relationship Specialty Start Date End Date Daryn Loomis MD [address] [place] [address] PCP - General 12/18/20 Surgery Scheduler Relationship Specialty Start Date End Date Daryn Loomis MD [address] [place] [address] PCP - General 12/18/20 Surgery Scheduler Relationship Specialty Start Date End Date Daryn Loomis MD [facility] [place] [address] PCP - General 12/18/20 Surgery Scheduler Relationship Specialty Start Date End Date Candido Starr MD [address] [place] [address] Nephrology 02/22/20 Surgery Scheduler Relationship Specialty Start Date End Date Candido Starr MD [address] [place] [phone] Nephrology 02/22/20 Surgery Scheduler Relationship Specialty Start Date End Date Daryn Loomis MD [address] [place] [phone] PCP - General 12/18/20 Surgery Scheduler Relationship Specialty Start Date End Date Leilani Troncoso [address] [place] [phone] PCP - General Family Medicine 10/03/24 Surgery Scheduler Relationship Specialty Start Date End Date Leilani Troncoso [address] [place] [phone] PCP - General Family Medicine 10/03/24 Surgery Scheduler Relationship Specialty Start Date End Date Leilani Troncoso [address] [place] [phone] PCP - General Family Medicine 10/03/24 Surgery Scheduler Relationship Specialty Start Date End Date Leilani Troncoso [address] [place] [phone] PCP - General Family Medicine 10/03/24 Surgery Scheduler Relationship Specialty Start Date End Date Leilani Troncoso [address] [place] [phone] PCP - General Family Medicine 10/03/24 Surgery Scheduler Relationship Specialty Start Date End Date Leilani Troncoso [address], [phone] PCP - General Family Medicine 10/03/24 Surgery Scheduler Relationship Specialty Start Date End Date Leilani Troncoso [address], [phone] PCP - General Family Medicine 10/03/24 Surgery Scheduler Relationship Specialty Start Date End Date Leilnai Troncoso [address], [phone] PCP - General Family Medicine 10/03/24 Surgery Scheduler Relationship Specialty Start Date End Date Leilani Troncoso [address] [place] [phone] PCP - General Family Medicine 10/03/24 Surgery Scheduler Relationship Specialty Start Date End Date Leilani Troncoso [address] [place] [phone] PCP - General Family Medicine 10/03/24 Surgery Scheduler Relationship Specialty Start Date End Date Leilani Troncoso [address] [place] [phone] PCP - General Family Medicine 10/03/24 Surgery Scheduler Relationship Specialty Start Date End Date Leilani Troncoso [address] [place] [phone] PCP - General Family Medicine 10/03/24 Surgery Scheduler Relationship Specialty Start Date End Date Leilani Troncoso [address] [place], [phone] PCP - General Family Medicine 10/03/24 Surgery Scheduler Relationship Specialty Start Date End Date Leilani Troncoso [address] [place] [phone] PCP - General Family Medicine 10/03/24 Surgery Scheduler Relationship Specialty Start Date End Date Leilani Troncoso [address] [place] [phone] PCP - General Family Medicine 10/03/24 Surgery Scheduler Relationship Specialty Start Date End Date Leilani Troncoso [address] [place] [phone] PCP - General Family Medicine 10/03/24 Surgery Scheduler Relationship Specialty Start Date End Date Leilani Troncoso [address] [place] [phone] PCP - General Family Medicine 10/03/24 Surgery Scheduler Relationship Specialty Start Date End Date Leilani Troncoso [address] [place] [phone] PCP - General Family Medicine 10/03/24 Surgery Scheduler Relationship Specialty Start Date End Date Leilani Troncoso [address] [place] [phone] PCP - General Family Medicine 10/03/24 Surgery Scheduler Relationship Specialty Start Date End Date Leilani Troncoso [address], [phone] PCP - General Family Medicine 10/03/24 Surgery Scheduler Relationship Specialty Start Date End Date Leilani Troncoso [address], [phone] PCP - General Family Medicine 10/03/24 Surgery Scheduler Relationship Specialty Start Date End Date Leilani Troncoso [address], [phone] PCP - General Family Medicine 10/03/24 Surgery Scheduler Relationship Specialty Start Date End Date Leilani Troncoso [address] [place] [phone] PCP - General Family Medicine 10/03/24 Surgery Scheduler Relationship Specialty Start Date End Date Leilani Troncoso [address] [place] [phone] PCP - General Family Medicine 10/03/24 Surgery Scheduler Relationship Specialty Start Date End Date Leilani Troncoso [address] [place] [phone] PCP - General Family Medicine 10/03/24 Surgery Scheduler Relationship Specialty Start Date End Date Leilani Troncoso [address] [place] [phone] PCP - General Family Medicine 10/03/24 Team [...] Attending Provider Active Start: February 20, 2025 Surgery Scheduler Relationship Specialty Start Date End Date Leilani Troncoso [address] [place] [phone] PCP - General Family Medicine 10/03/24 Surgery Scheduler Relationship Specialty Start Date End Date Leilani Troncoso [address] [place] [phone] PCP - General Family Medicine 10/03/24 Surgery Scheduler Relationship Specialty Start Date End Date Leilani Troncoso [address] [place] [phone] PCP - General Family Medicine 10/03/24 Surgery Scheduler Relationship Specialty Start Date End Date Leilani Troncoso [address] [place] [phone] PCP - General [facility] Medicine 10/03/24 Surgery Scheduler Relationship Specialty Start Date End Date Leilani Troncoso [address] [place] [phone] PCP - General [facility] Medicine 10/03/24 Surgery Scheduler Relationship Specialty Start Date End Date Leilani Troncoso [address] [place] [phone] PCP - General [facility] Medicine 10/03/24 Team Status: Inactive Member Role [...] February 20, 2025 End: February 20, 2025 Surgery Scheduler Relationship Specialty Start Date End Date Leilani [place]roncos[place] [address] PCP - General Family Medicine [...] February 12, 2025 End: February 12, 2025 Surgery Scheduler Relationship Specialty Start Date End Date Leilani Torncoso [address] [place] [phone] PCP - General Family Medicine 10/03/24 Surgery Scheduler Relationship Specialty Start Date End Date Leilani Troncoso [address] [place] [phone] PCP - General Family Medicine 10/03/24 Surgery Scheduler Relationship Specialty Start Date End Date Leilani Troncoso [address] [place] [phone] PCP - General Family Medicine 10/03/24 Surgery Scheduler Relationship Specialty Start Date End Date Leilani Troncoso [address] [place] [phone] PCP - General Family Medicine 10/03/24 Surgery Scheduler Relationship Specialty Start Date End Date Leil[place] [phone] PCP - General Family Medicine 10/03/24 Reason for Visit (unrecogniz ed section and content) Reason Comments Emesis Diarrhea Oral Swelling Reason Comments Hemoglobin drop 6.8 Rectal bleeding- lab s in Care Everywhere under Summarization Reason Comments Procedure Reason Comments ramirez carlsonen Reason Comments please advise Reason Comments Sore [...] levels. Specialty Diagnoses / Procedures Referred By Contjayant t Referred To Contact Diagnoses New onset a-fib (CMS/HCC) (HCC) Procedures . Earlene Irving MD [address] [place] [address] [facility] Emergency Dept [address] [place] [address] Referral ID Status Reason Start Date Expiration Date Visits Re quested Visits Authorized [id number] 1 1 Reason Onset Date Comments Cancelled [...] To Contact Diagnoses Complication of tracheostomy (CMS/HCC) ([facility]) Procedures . 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 Specialty Diagnoses / Procedures Referred By Contac t Referred To Contact Diagnoses Hemoptysis Procedures . Bettye Pierre MD [address] [place] [address] Phone: tel: fax: [facility] Trauma Neuro Progressive Care Unit PCU [address] [place] [address] Phone: tel: Referral ID Status Reason Start Date Expiration Date Visits Re quested Visits Authorized [id number] 1 1 Reason Onset Date Comments Appointment 02/23/2025 Reason Comments Shortness of Breath Pt arrived from [facility] home via EMS. Pt was starting dialysis and feeling short of breath dialysis was stopped and sent to the hospital to be evaluated. Specialty Diagnoses / Procedures Referred By Contac t Referred To Contact Diagnoses SOB (shortness of breath) Procedures 0 Rubi Sanon MD [address] [place] [address] Phone: tel: fax: [facility] Cardiac Progressive Care Unit PCU [address] [place] [address] Phone: tel: Referral ID Status Reason Start Date Expiration Date Visits Re quested Visits Authorized [id number] 1 1 Reason Onset Date Comments Appointment 03/26/2025 Reason Onset Date Comments Cancelled Appointment 04/05/2025 Reason Comments Rapid Heart Rate Reason Comments Other Hyperkalemic. Potass ium level of 6.0. was at dialysis finished full cycle. Was hypertensive. Gcs 15. Dialysis port in left arm. Reason Onset Date Comments Appointment 04/11/2025 Reason Comments Other INR high 10.5 Goals (unrecognized section and content) Goals may [...] BE BASED ON THE PRIMARY CLINICAL RECORDS. [facility]. provides no warranty or guarantee of the accuracy or completeness of information in this document.
[2025-04-18 08:26] LABS: INR Fingerstick 6.0
[2025-04-18 08:37] LABS: Prothrombin Time (Protime)PT. 48.9 SECONDS (11.7-14.9)
== END ==
LOC: OLS.SANC 05:00
PROVIDERS: Visit Provider Internal Medicine
DX: Z79.01 Long term (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 anticoagulants (principal)
CPT/HCPCS: 36416; 85610

== ENCOUNTER → 2025-04-19 05:00 | Outpatient (REF) | payer MEDICARE, SELFPAY ==
--- OUTSIDE RECORDS SUMMARY | 2025-04-19 03:58 | XMS RPT_ITS | CCD ---
Author Organization [facility] CliniSysd Care Team Providers Care [employer] Insurance Name Role Phone Candido Starr Unavailable Unavailable Primary Care Provider Daryn Degroot MD Primary Care Provider Unavailable Primary Care Provider Kyree Starr MD, Candido Unavailable Daryn Loomis MD Primary Care Provider Candido Starr MD Unavailable Leilani Troncoso Primary Care Provider [phone] Leilani Troncoso Primary Care Provider Kayley Melendrez MD Attending Provider Unava ilable Katsaros OLSJayesh Attending Provider Unavailab fredo Melendrez MD, Kayley Referring Provider Unava ilable Mukkamalla OLS, Kayley Attending Unavail able Mukkamalla OLS, Kayley Referring Unavail able Mukkamalla OLS, Kayley Attending Unavail able Mukkamalla OLS, Kayley Attending Unavail able Mukkamalla OLS, Kayley Attending Unavail able [place]kamalla OLS, Kayley Attending Unavail able [place]amalla OLS, Kayley Attending Unavail able [place]alla OLS, Navarroer Attending Unavail able [place]alla OLS, Kayley Attending Unavail able Mukkamalla OLS, Kayley Attending Unavail able Katsaros OLS, Jayesh Attending Unavailable [place]kamalla OLS, Kayley Attending Unavail able Katsaros OLS, Jayesh Attending Unavailable Mukkamalla OLS, Kayley Attending Unavail able Mukkamalla OLS, Kayley Attending Unavail able Katsaros OLS, Jayesh Attending Unavailable Katsaros OLS, Jayesh Referring Unavailable Katsaros OLS, Jayesh Attending Unavailable Mukkamalla OLS, Kayley Referring Unavail able Mukkamalla OLS, Mahaveer Attending Unavail able Mukkamalla OLS, Mahaveer Attending Unavail able Mukkamalla OLS, Mahaveer Attending Unavail able ANTHONY HURTADO Attending Unavailable TERRELL, WELLINGTON Consulting Unavailable BETTYE PIERRE Admitting Unavailable [facility] Primary Care Unavailable KEIRY SOLARES Attending Unavailable [facility] Primary Care [facility] Care Unavailable ANU CASTRO Attending Unavailable TERRELL, WELLINGTON Consulting Unavailable RUBI SANON Admitting Unavailable [facility] Primary Care Unavailable MONTEMAYOR, LUCIANO Attending Unavailable MONTEMAYOR, LUCIANO Admitting Unavailable DA, JAYAPRAKASH Consulting Unavailable [facility] Primary Care Unavailable ELDON ALBA Consulting Unavailable TIFFANIE VILLEGAS Consulting Unavailable DARYN SANTACRUZ Consulting Unavailable CALI ARREDONDO Consulting Unavailable DIETER VILLEGAS Attending Unavailable [facility] Primary Care Unavailable BARB DAWKINS Attending Unavailable JUNE CHAPARRO Consulting Unavailable QUIANA JEFFERY Admitting Unavailable [facility] Primary Care Unavailable [facility] Primary Care Unavailable FRANK, JESE Referring Unavailable [facility] Primary Care Unavailable MIKALA DAY Attending Unavailable [facility] Primary Care Unavailable OSIRIS TERRELL Attending Unavailable [facility] Primary Care Unavailable MONTEMAYOR, LUCIANO Referring Unavailable [facility] Primary Care Unavailable MONTEMAYOR, LUCIANO Referring Unavailable DARYN LOOMIS Primary Care Unavailable JR SHAH Attending Unavailable [facility] Primary Care Unavailable MIKALA DAY Referring Unavailable MIKALA DAY Attending Unavailable [facility] Primary Care Unavailable ELIZABETH, ASHMA Referring Unavailable [facility] Primary Care Unavailable FRANK, JESE Referring Unavailable Allergies Allergy Classification Reported Allergen(s) Allergy Type Date of Onset Reaction(s) Facility (11 sources) Lisinopril Drug Allergy 0 Swelling [facility] Work Phone: (20 sources) Lisinopril Allergy to substance 2 Swelling, Angioedema [facility] Medications Current Medications Medication Drug [...] MG tablet Indications: ESRD on hemodialysis (CMS/HCC) ([facility]) Take 1 tablet (800 mg) by mouth [...] on above: Take 1,600 mg by edwina th three times daily with meals. Take 3 tablets by mo uth three times daily with meals. sodium chloride [...] (20 sources) Vitamin K Antagonist Start: 025 7.5 mg, Oral, Once Warfarin, On Tu03/20/25 at 1700, For 1 dose Start: 03-17-2025 5 mg, Oral, On ce Warfarin, On 03/18/25 at 1700, For 1 dose Start: 03-15-2025 [...] tablet 650 mg 20 ml albumin human, long term 250 mg/ml injection (1 source) Human Serum [...] sodium chloride 0.9 % 100 mL IVPB (Add-Ashburn) (2 sources) Start: 02-01-2025 End: 02-01-2025 anidulafungin [...] / vitamin b12 0.006 mg oral tablet ( sources) Vitamin B12, Vitamin C End: 03-21-2025 take 1 tablet by mouth once daily B complex-vitamin C-folic acid (Nephro-Nato Rx) 1 MG tablet Take 1 tablet by mouth daily. 03/21/2025 Discontinued (Stop taking at discharge) asenapine 5 mg sublingual tablet (2 sources) Atypical Antipsychotic Start: 01-22-2025 End: 01-22-2025 Start: 01-22-2025 End: 01-22-2025 B Omiyhsq-K-Ifesw Acid (NEPHRO-NATO) 0.8 MG TABS (1 source) Start: 10-14-2020 take 1 tablet by mouth once daily B Mutvpze-E-Vojtu Acid (NEPHRO-NATO) 0.8 MG TABS TAKE 1 [...] at 1024, Anesthesia Intraprocedure epoetin rowan-epbx (Retacrit) 57856 UNIT/ML injection (20 sources) Start: 12-04-2024 End: 02-21-2025 inject 0.79 mL by subcutaneous injection every week epoetin rowan-epbx (Retacrit) 48684 UNIT/ML injection Indications: ESRD on Dialysis Inject 0.79 mL (7,900 Units) under the skin 1 (one) time per week. 12/04/2024 02/21/2025 Discontinued (Discontinued by another clinician) Start: 12-04-2024 inject 0.79 mL by bangura bcutaneous injection every week epoetin rowan-epbx (Retacrit) 34060 UNIT/ML injection Indications: ESRD on Dialysis Inject [...] at 1024, Anesthesia Intraprocedure polyethylene glycol 3350 88488 mg powder for oral solution (6 sources) [...] sodium chloride 5860 mg / sodium sulfate 02948 mg powder for oral solution (6 sources) [...] 1105, Anesthesia Intraprocedure 25 ml protamine sulfate (long term) 10 mg/ml injection (1 source) Start: 10-12-2024 [...] [Essential (primary) hypertension] Onset: 12-01-2022 Chronic Gangrene (4 sources) Necrosis of anatomical site; Translations: [Gangrene, not elsewhere classified] Onset: 04-17-2025 04-17-2025 Episodic Gastroduodenal ulcer (except hemorrhage) (20 [...] sources) Long-term current use of antibiotic; Translations: [jail (current) use of antibiotics] Onset: 01-12-2025 01-12-2025 Episodic Other aftercare (2 sources) 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; Translations: [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] Onset: 03-24-2025 Episodic Other aftercare (1 source) 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; Translations: [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] Onset: 02-28-2025 Episodic Other [...] conditions (not mental disorders or infectious disease) (4 sources) INR raised; Translations: [Abnormal coagulation profile] Onset: 04-17-2025 04-17-2025 Episodic Other skin disorders (1 source) [...] encounter; Translations: [Contusion of hand(s)] Onset: 04-09-2025 04-09-2025 Episodic Unclassified (1 source) Patient encounter [...] Translations: [Hyperkalemia] Onset: 10-03-2024 Episodic Other aftercare (1 source) jail (current) use of antibiotics; Translations: [jail (current) use of antibiotics] Onset: 01-12-2025 Episodic Other gastrointestinal disorders (20 sources) Pneumoperitoneum; [...] 29.6 % Low 40.0 - 52.0 % [facility] Hemoglobin (Bld) [Mass/Vol] 9.6 g/dL Low 13.0 - 18.0 g/dL [facility] Immature granulocytes (Bld) [#/Vol] 0 10*3/uL NINF - 0.1 10*3/uL [facility] Immature granulocytes/100 WBC (Bld) 0.4 % 0.0 - 2.0 % [facility] Interpretation and review of laboratory results Abnormal [facility] Lymphocytes (Bld) [#/Vol] 1 10*3/uL 1.0 - 4.3 10*3/uL [facility] Lymphocytes/100 WBC (Bld) 13.3 % Low 15.0 - 45.0 % [facility] MCH (RBC) [Entitic mass] 29.3 pg 26. 0 - 34.0 pg [facility] MCHC (RBC) [Mass/Vol] 32.4 % 30.5 - 36.0 % [facility] MCV (RBC) [Entitic vol] 90.2 fL 77.0 - 99.0 fL [facility] Monocytes (Bld) [#/Vol] 1.1 10*3/uL High 0.0 - 0.9 10*3/uL [facility] Monocytes/100 WBC (Bld) 15.2 % High 5.0 - 13.0 % [facility] Neutrophils (Bld) [#/Vol] 4.8 10*3/uL 1.8 - 7.5 10*3/uL [facility] Neutrophils/100 WBC (Bld) 66.4 % 38.0 - 82.0 % [facility] Nucleated RBC/100 WBC (Bld) [Ratio] 0 % [facility] Platelet mean volume (Bld) [Entitic vol] 9.3 fL 9.0 - 12.7 fL [facility] Platelets (Bld) [#/Vol] 381 10*3/uL 140 - 440 10*3/uL [facility] RBC (Bld) [#/Vol] 3.28 10*6/uL Low 4.40 - 5.9 0 10*6/uL [facility] WBC (Bld) [#/Vol] 7.3 10*3/uL 3.6 - 10.7 10*3/uL [facility] CBC WITH AUTO DIFFERENTIALon 04-17-2025 Basophils (Bld) [#/Vol] 0.1 10*3/uL Normal 0.0-0.2 [facility] Comment on above: Performed By: #### L [id number] ####Recycling Coordinator: FENG COLEGEORGE ([id number])[facility] (SBHLAB)[address] Basophils/100 WBC (Bld) 1.4 % Normal 0.0-2.0 [facility] Comment on above: Performed By: #### L [id number] ####Recycling Coordinator: FENG COLEGEORGE ([id number])[facility] (SBHLAB)[address] Eosinophils (Bld) [#/Vol] 0.2 10*3/uL Normal 0.0-0.5 [facility] Comment on above: Performed By: #### L [id number] ####Recycling Coordinator: FENG CONSTANTINO ([id number])[facility] (SBHLAB)[address] Eosinophils/100 WBC (Bld) 3.3 % Normal 0.0-6.0 [facility] Comment on above: Performed By: #### L [id number] ####Recycling Coordinator: FENG COLEGEORGE ([id number])[facility] (SBHLAB)[address] Erythrocyte distribution width (RBC) [Ratio] 16.6 % High 11.5-15.0 [facility] Comment on above: Performed By: #### L [id number] ####Recycling Coordinator: FENG COLEGEORGE ([id number])[facility] (SBHLAB)[address] Hematocrit (Bld) [Volume fraction] 29.6 % Low 40.0-52.0 [facility] Comment on above: Performed By: #### L [id number] ####Recycling Coordinator: FENG CONSTANTINO ([id number])[facility] ([facility])[address] Hemoglobin (Bld) [Mass/Vol] 9.6 g/dL Low 13.0-18.0 [facility] Comment on above: Performed By: #### L [id number] ####Recycling Coordinator: FENG CONSTANTINO ([id number])[facility] ([facility])[address] IMMATURE GRANS % 0.4 % Normal 0.0-2.0 [facility] Comment on above: Performed By: #### L [id number] ####Recycling Coordinator: FENG CONSTANTINO ([id number])[facility] ([facility])[address] IMMATURE GRANS ABSOLUTE 0.0 10*3/uL Normal <0.1 [facility] Comment on above: Performed By: #### L [id number] ####Recycling Coordinator: FENG CONSTANTINO ([id number])[facility] ([facility])[address] Lymphocytes (Bld) [#/Vol] 1.0 10*3/uL Normal 1.0-4.3 [facility] Comment on above: Performed By: #### L [id number] ####Recycling Coordinator: FENG CONSTANTINO ([id number])[facility] ([facility])[address] Lymphocytes/100 WBC (Bld) 13.3 % Low 15.0-45.0 [facility] Comment on above: Performed By: #### L [id number] ####Recycling Coordinator: FENG CONSTANTINO ([id number])[facility] ([facility])[address] MCH (RBC) [Entitic mass] 29.3 pg Normal 26.0-34.0 [facility] Comment on above: Performed By: #### L [id number] ####Recycling Coordinator: FENG CONSTANTINO ([id number])[facility] ([facility])[address] MCHC 32.4 % Normal 30.5-36.0 [facility] Comment on above: Performed By: #### L [id number] ####Recycling Coordinator: FENG DAHLIAMitzyGEORGE ([id number])[facility] ([facility])[address] MCV (RBC) [Entitic vol] 90.2 fL Normal 77.0-99.0 [facility] Comment on above: Performed By: #### L [id number] ####Recycling Coordinator: FENG DOUGIE ([id number])[facility] ([facility])[address] Monocytes (Bld) [#/Vol] 1.1 10*3/uL High 0.0-0.9 [facility] Comment on above: Performed By: #### L [id number] ####Recycling Coordinator: FENG DOUGIE ([id number])[facility] ([facility])[address] Monocytes/100 WBC (Bld) 15.2 % High 5.0-13.0 [facility] Comment on above: Performed By: #### L [id number] ####Recycling Coordinator: FENG VILLAGOMEZMitzyGEORGE ([id number])[facility] (SB[facility])[address] NEUTROPHILS ABSOLUTE 4.8 10*3/uL Normal 1.8-7.5 [facility] Comment on above: Performed By: #### L [id number] ####Recycling Coordinator: FENG VILLAGOMEZALESIA ([id number])[facility] ([facility])[address] Neutrophils/100 WBC (Bld) 66.4 % Normal 38.0-82.0 [facility] Comment on above: Performed By: #### L [id number] ####Recycling Coordinator: FENG COLEGEORGE ([id number])[facility] ([facility])[address] NRBC 0.0 /100 WBCs Normal 0.0-2.0 [facility] Comment on above: Performed By: #### L [id number] ####Recycling Coordinator: FENG CONSTANTINO ([id number])[facility] ([facility])[address] Platelet mean volume (Bld) [Entitic vol] 9.3 fL Normal 9.0-12.7 [facility] Comment on above: Performed By: #### L [id number] ####Recycling Coordinator: FENG CONSTANTINO ([id number])[facility] ([facility])[address] Platelets (Bld) [#/Vol] 381 10*3/uL Normal 140-440 [facility] Comment on above: Performed By: #### L [id number] ####Recycling Coordinator: FENG CONSTANTINO ([id number])[facility] ([facility])[address] RBC (Bld) [#/Vol] 3.28 10*6/uL Low 4.40-5.90 [facility] Comment on above: Performed By: #### L [id number] ####Recycling Coordinator: FENG CONSTANTINO ([id number])[facility] [place] ([facility])[address] WBC (Bld) [#/Vol] 7.3 10*3/uL Normal 3.6-10.7 [facility] Comment on above: Performed By: #### L [id number] ####Recycling Coordinator: FENG CONSTANTINO ([id number])[facility] [place] ([facility])[address] COMPREHENSIVE METABOLIC PANE Victor M 04-17-2025 Albumin [Mass/Vol] 2.3 g/dL Low 3.5-5.0 [facility] Comment on above: Performed By: #### L [id number] ####Recycling Coordinator: FENG CONSTANTINO ([id number])[facility] [place] ([facility])[address] [place] [address] [place] ALP [Catalytic activity/Vol] 294 U/L High 40-150 [facility] Comment on above: Performed By: #### L [id number] ####Recycling Coordinator: FENG CONSTANTINO ([id number])[facility] ([facility])[address] ALT [Catalytic activity/Vol] 6 U/L Normal <40 [facility] Comment on above: Performed By: #### L AB17 ####Recycling Coordinator: FENG CONSTANTINO ([id number])[facility] ([facility])[address] Anion gap [Moles/Vol] 11 mmol/L Normal 3-13 [facility] Comment on above: Performed By: #### L AB17 ####Recycling Coordinator: FENG CONSTANTINO ([id number])[facility] ([facility])[address] AST [Catalytic activity/Vol] 57 U/L High <34 [facility] Comment on above: Performed By: #### L AB17 ####Recycling Coordinator: FENG CONSTANTINO ([id number])[facility] ([facility])[address] Bilirubin [Mass/Vol] 0.7 mg/dL Normal <1.2 [facility] Comment on above: Performed By: #### L AB17 ####Recycling Coordinator: FENG CONTSANTINO ([id number])[facility] ([facility])[address] Calcium [Mass/Vol] 9.5 mg/dL Normal 8.4-10.2 [facility] Comment on above: Performed By: #### L AB17 ####Recycling Coordinator: FENG CONSTANTINO ([id number])[facility] ([facility])[address] [place] [address] [place] Chloride [Moles/Vol] 100 mmol/L Normal 98-107 [facility] Comment on above: Performed By: #### L AB17 ####Recycling Coordinator: FENG CONSTANTINO ([id number])[facility] ([facility])[address] CO2 [Moles/Vol] 25 mmol/L Normal 22-29 [facility] Comment on above: Performed By: #### L AB17 ####Recycling Coordinator: FENG CONSTANTINO ([id number])[facility] (SB[facility])[address] Creatinine [Mass/Vol] 4.18 mg/dL High 0.72-1.25 [facility] Comment on above: Performed By: #### L AB17 ####Recycling Coordinator: FENG CONSTANTINO ([id number])[facility] (SBAB)[address] [place] [address] GLOMERULAR FILTRATION RATE ML/MIN/1.73 SQ M.PREDICTED 15.6 mL/min/1.73m*2 Low >60.0 [facility] Comment on above: Result Comment: Calc ulation based on the Chronic Kidney Disease Epidemiology Collaboration (CKD-EPI) equation refit without adjustment for race Performed By: #### L AB17 ####Recycling Coordinator: FENG CONSTANTINO ([id number])[facility] (SBHLAB)[address] Glucose [Mass/Vol] 98 mg/dL Normal 74-100 [facility] Comment on above: Performed By: #### L AB17 ####Recycling Coordinator: FENG CONSTANTINO ([id number])[facility] (SBHLAB)[address] [place] [address] [place] Potassium [Moles/Vol] 5.7 mmol/L High 3.5-5.1 [facility] Comment on above: Result Comment: [facility] potassium values may be up to 0.5 mmol/L lower than serum values. Performed By: #### L AB17 ####Recycling Coordinator: FENG CONSTANTINO ([id number])[facility] (SB[facility])[address] Protein [Mass/Vol] 7.7 g/dL Normal 6.4-8.3 [facility] Comment on above: Performed By: #### L AB17 ####Recycling Coordinator: FENG FELIXCER ([id number])[facility] ([facility])[address] Sodium [Moles/Vol] 136 mmol/L Normal 136-145 [facility] Comment on above: Performed By: #### L AB17 ####Recycling Coordinator: FENG FELIXCER ([id number])[facility] (SB[facility])[address] Urea nitrogen [Mass/Vol] 48 mg/dL High 9-23 [facility] Comment on above: Performed By: #### L AB17 ####Recycling Coordinator: FENG COLEGEORGE ([id number])[facility] ([facility])[address] Comprehensive metabolic 1998 panelon 04-17-2025 Albumin [Mass/Vol] 2.3 g/dL Low 3.5 - 5.0 g/dL [facility] ALP [Catalytic activity/Vol] 294 U/L High 40 - 150 U/L [facility] ALT [Catalytic activity/Vol] 6 U/L NINF - 40 U/L [facility] Anion gap [Moles/Vol] 11 mmol/L 3 - 13 mmol/L [facility] AST [Catalytic activity/Vol] 57 U/L High NINF - 34 U/L [facility] Bilirubin [Mass/Vol] 0.7 mg/dL NINF - 1.2 mg/dL [facility] Calcium [Mass/Vol] 9.5 mg/dL 8.4 - 10. 2 mg/dL [facility] Chloride [Moles/Vol] 100 mmol/L 98 - 10 7 mmol/L [facility] CO2 [Moles/Vol] 25 mmol/L 22 - 29 mmol/L [facility] Creatinine [Mass/Vol] 4.18 mg/dL High 0.72 - 1.25 mg/dL [facility] GFR/1.73 sq M.predicted (S/P/Bld) [Vol rate/Area] 15.6 mL/min Low - PINF [facility] Comment on above: Calculation based on the Chronic Kidney Disease Epidemiology Collaboration (CKD-EPI) equation refit without adjustment for race Glucose [Mass/Vol] 98 mg/dL 74 - 100 mg/dL [facility] Interpretation and review of laboratory results Abnormal [facility] Potassium [Moles/Vol] 5.7 mmol/L High 3.5 - 5.1 mmol/L [facility] Comment on above: Plasma potassium macey ues may be up to 0.5 mmol/L lower than serum values. Protein [Mass/Vol] 7.7 g/dL 6.4 - 8.3 g/dL [facility] Sodium [Moles/Vol] 136 mmol/L 136 - 145 mmol/L [facility] Urea nitrogen [Mass/Vol] 48 mg/dL High 9 - 23 mg/d L [facility] ED Nursing Noteon 04-17-2025 ED Nursing Note Report called to [facility]. Normal [facility] ED Nursing Note PIV placed, blood collected for lab work, pt states it hurts and he does not want an PIV left in, If I leave it he will rip it out. PIV Dc'd Normal [facility] ED Provider Noteon 5 ED Provider Note Normal [facility] Laboratory - CoagulationOrde red By: Yifan Howard on 04-17-2025 PT Coag (Bld) [Time] s High 9.0 - 12.0 s [facility] PROTHROMBIN TIMEon 5 INR Coag (PPP) [Relative time] {INR} Critically high 0.9-1.1 [facility] Comment on above: Performed By: #### L [id number] ####Recycling Coordinator: FENG CONSTANTINO ([id number])[facility] ([facility])[address] PT Coag (PPP) [Time] s High 9.0-12.0 [facility] Comment on above: Performed By: #### L [id number] ####Recycling Coordinator: FENG CONSTANTINO ([id number])[facility] (SB[facility])[address] [place] [id number] [place] [address] PT Coag (Bld) [Time]Ordered By: Yifan Howard on 04-17-2025 INR Coag (PPP) [Relative time] Critically high 0.9 - 1.1 [facility] Interpretation and review of laboratory results Abnormal [facility] Prothrombin Time w/INRon INR Coag (PPP) [Relative time] 10.8 {INR} Invalid Interpretation Code [facility] Comment on above: Order Comment: 413.2 Result Comment: CRIT ICAL VALUE CALLED TO LEXX BERG ([facility]) 04/17/25 0831 Brett Stack. RESULTS READ BACK BY SAME. Performed By: #### L 500.4050, L100.0100, L300.3900 #### [facility] [address] [place], [address] PT Coag (PPP) [Time] 87.5 s High 11.7-14.9 [facility] Comment on above: Order Comment: 413.2 Performed By: #### L 500.4050, L100.0100, L300.3900 #### [facility] [address] [place], [address] CBC W/Diff, Automatedon 03-28 Absolute Lymph 0.94 X10 3/uL Normal 0.83-4.51 [facility] Comment on above: Order Comment: 412.2 Performed By: #### L 100.0100, L300.3900, L500.4050 #### [facility] [address] [place], [address] Absolute Neut 3.9 X10 3/uL Normal 2.0-7.7 [facility] Comment on above: Order Comment: 412.2 Performed By: #### L 100.0100, L300.3900, L500.4050 #### [facility] [address] [place], [address] Basophils/100 WBC (Bld) 1.7 % High 0-1 [facility] Comment on above: Order Comment: 412.2 Performed By: #### L 100.0100, L300.3900, L500.4050 #### [facility] [address] [place], [address] Eosinophils/100 WBC (Bld) 4.3 % Normal 0-5 [facility] Comment on above: Order Comment: 412.2 Performed By: #### L 100.0100, L300.3900, L500.4050 #### [facility] [address] [place], [address] Erythrocyte distribution width (RBC) [Ratio] 16.3 % High 11.6-14.6 [facility] Comment on above: Order Comment: 412.2 Performed By: #### L 100.0100, L300.3900, L500.4050 #### [facility] [address] [place], [address] Hematocrit (Bld) [Volume fraction] 29.3 % Low 40-54 [facility] Comment on above: Order Comment: 412.2 Performed By: #### L 100.0100, L300.3900, L500.4050 #### [facility] [address] [place], [address] Hemoglobin (Bld) [Mass/Vol] 9.4 g/dL Low 13.0-16.5 [facility] Comment on above: Order Comment: 412.2 Performed By: #### L 100.0100, L300.3900, L500.4050 #### [facility] [address] [place], [address] IG% 0.800 Normal 0.0-0.9 [facility] Comment on above: Order Comment: 412.2 Result Comment: IG% - Immature Granulocytes (promyelocytes, myelocytes and metamyelocytes) > 1% indicates that a LEFT SHIFT is Present. Performed By: #### L 100.0100, L300.3900, L500.4050 #### [facility] [address] [place], [address] Lymphocytes/100 WBC (Bld) 15.7 % Low 19-41 [facility] Comment on above: Order Comment: 412.2 Performed By: #### L 100.0100, L300.3900, L500.4050 #### [facility] [address] [place], [address] MCH (RBC) [Entitic mass] 29.7 pg Normal 27.0-32.0 [facility] Comment on above: Order Comment: 412.2 Performed By: #### L 100.0100, L300.3900, L500.4050 #### [facility] [address] [place], [address] MCHC (RBC) [Mass/Vol] 32.1 g/dL Normal 32-36 [facility] Comment on above: Order Comment: 412.2 Performed By: #### L 100.0100, L300.3900, L500.4050 #### [facility] [address] [place], [address] MCV (RBC) [Entitic vol] 92.4 fL Normal 80-94 [facility] Comment on above: Order Comment: 412.2 Performed By: #### L 100.0100, L300.3900, L500.4050 #### [facility] [address] [place], [address] Monocytes/100 WBC (Bld) 13.0 % High 0-10 [facility] Comment on above: Order Comment: 412.2 Performed By: #### L 100.0100, L300.3900, L500.4050 #### [facility] [address] [place], [address] Neutrophils/100 WBC (Bld) 64.5 % Normal 47-70 [facility] Comment on above: Order Comment: 412.2 Performed By: #### L 100.0100, L300.3900, L500.4050 #### [facility] [address] [place], [address] Nucleated RBC (Bld) [#/Vol] 0 10*3/uL Normal 0-5 [facility] Comment on above: Order Comment: 412.2 Performed By: #### L 100.0100, L300.3900, L500.4050 #### [facility] [address] [place], [address] Platelet mean volume (Bld) [Entitic vol] 9.5 fL Normal 6.2-12.0 [facility] Comment on above: Order Comment: 412.2 Performed By: #### L 100.0100, L300.3900, L500.4050 #### [facility] [address] [place], [address] Platelets (Bld) [#/Vol] 397 10*3/uL Normal 150-450 [facility] Comment on above: Order Comment: 412.2 Performed By: #### L 100.0100, L300.3900, L500.4050 #### [facility] [address] [place], [address] RBC (Bld) [#/Vol] 3.17 10*6/uL Low 4.6-6.2 [facility] Comment on above: Order Comment: 412.2 Performed By: #### L 100.0100, L300.3900, L500.4050 #### [facility] [address] [place], [address] RDW SD 54.5 fl High 35.1-43.9 [facility] Comment on above: Order Comment: 412.2 Performed By: #### L 100.0100, L300.3900, L500.4050 #### [facility] [address] [place], [address] WBC (Bld) [#/Vol] 6.0 10*3/uL Normal 4.4-11.0 [facility] Comment on above: Order Comment: 412.2 Performed By: #### L 100.0100, L300.3900, L500.4050 #### [facility] [address] [place], [address] CT CHEST WO IV CONTRASTon CT CHEST WO IV CONTRAST Normal S [facility] Comprehensive Metabolic Prof ilon 04-16-2025 Albumin [Mass/Vol] 3.1 g/dL Low 3.5-5.0 [facility] Comment on above: Order Comment: 412.2 Performed By: #### L 100.0100, L300.3900, L500.4050 #### [facility] [address] [place], [address] Albumin/Globulin [Mass ratio] 0.7 {ratio} Low 0.9-2.4 [facility] Comment on above: Order Comment: 412.2 Performed By: #### L 100.0100, L300.3900, L500.4050 #### [facility] [address] [place], [address] ALK PHOS 331 U/L High 40-129 [facility] Comment on above: Order Comment: 412.2 Performed By: #### L 100.0100, L300.3900, L500.4050 #### [facility] [address] [place], [address] ALT [Catalytic activity/Vol] 13 U/L Normal <=46 [facility] Comment on above: Order Comment: 412.2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 By: #### L AB15, [id number] ####Recycling Coordinator: FENG [phone])[facility] [place] ([facility])[address] Creatinine [Mass/Vol] 3.52 mg/dL High 0.72-1.25 [facility] Comment on above: Performed By: #### L AB15, [id number] ####Recycling Coordinator: FENG CONSTANTINO ([phone])[facility] (SB[facility])[address] [place] [address] [place] GLOMERULAR FILTRATION RATE ML/MIN/1.73 SQ M.PREDICTED 19.1 mL/min/1.73m*2 Low >60.0 [facility] Comment on above: Result Comment: Calc ulation based on the Chronic Kidney Disease Epidemiology Collaboration (CKD-EPI) equation refit without adjustment for race Performed By: #### L AB15, [id number] ####Recycling Coordinator: FENG CONSTANTINO ([id number])[facility] ([facility])[address] Glucose [Mass/Vol] 94 mg/dL Normal 74-100 [facility] Comment on above: Performed By: #### L AB15, [id number] ####Recycling Coordinator: FENG CONSTANTINO ([id number])[facility] (SBHLAB)[address] [place] [address] [place] Potassium [Moles/Vol] 5.5 mmol/L High 3.5-5.1 [facility] Comment on above: Result Comment: [facility] potassium values may be up to 0.5 mmol/L lower than serum values. Performed By: #### L AB15, [id number] ####Recycling Coordinator: FENG CONSTANTINO ([id number])[facility] [place] ([facility])[address] [place] [address] [place] Sodium [Moles/Vol] 140 mmol/L Normal 136-145 [facility] Comment on above: Performed By: #### L AB15, [id number] ####Recycling Coordinator: FENG CONSTANTINO ([id number])[facility] (SBHLAB)[address] Urea nitrogen [Mass/Vol] 34 mg/dL High 9-23 [facility] Comment on above: Performed By: #### L AB15, [id number] ####Recycling Coordinator: FENG CONSTANTINO ([id number])[facility] (SB[facility])[address] Basic metabolic 1998 panelon 04-05-2025 Anion gap [Moles/Vol] 10 mmol/L 3 - 13 mmol/L [facility] Calcium [Mass/Vol] 9 mg/dL 8.4 - 10. 2 mg/dL [facility] Chloride [Moles/Vol] 101 mmol/L 98 - 10 7 mmol/L [facility] CO2 [Moles/Vol] 29 mmol/L 22 - 29 mmol/L [facility] Creatinine [Mass/Vol] 3.52 mg/dL High 0.72 - 1.25 mg/dL [facility] GFR/1.73 sq M.predicted (S/P/Bld) [Vol rate/Area] 19.1 mL/min Low - PINF [facility] Comment on above: Calculation based on the Chronic Kidney Disease Epidemiology Collaboration (CKD-EPI) equation refit without adjustment for race Glucose [Mass/Vol] 94 mg/dL 74 - 100 mg/dL [facility] Interpretation and review of laboratory results Abnormal [facility] Potassium [Moles/Vol] 5.5 mmol/L High 3.5 - 5.1 mmol/L [facility] Comment on above: Plasma potassium macey ues may be up to 0.5 mmol/L lower than serum values. Sodium [Moles/Vol] 140 mmol/L 136 - 145 mmol/L [facility] Urea nitrogen [Mass/Vol] 34 mg/dL High 9 - 23 mg/d L [facility] CBC W Auto Differential pane l (Bld)Ordered By: Yifan Howard on 04-05-2025 Basophils (Bld) [#/Vol] 0.1 10*3/uL 0.0 - 0.2 10*3/uL [facility] Basophils/100 WBC (Bld) 1.5 % 0.0 - 2.0 % [facility] Eosinophils (Bld) [#/Vol] 0.2 10*3/uL 0.0 - 0.5 10*3/uL [facility] Eosinophils/100 WBC (Bld) 3.5 % 0.0 - 6.0 % [facility] Erythrocyte distribution width (RBC) [Ratio] 16 % High 11.5 - 15.0 % [facility] Hematocrit (Bld) [Volume fraction] 30.1 % Low 40.0 - 52.0 % [facility] Hemoglobin (Bld) [Mass/Vol] 9.3 g/dL Low 13.0 - 18.0 g/dL [facility] Immature granulocytes (Bld) [#/Vol] 0 10*3/uL NINF - 0.1 10*3/uL [facility] Immature granulocytes/100 WBC (Bld) 0.4 % 0.0 - 2.0 % [facility] Interpretation and review of laboratory results Abnormal [facility] Lymphocytes (Bld) [#/Vol] 1.1 10*3/uL 1.0 - 4.3 10*3/uL [facility] Lymphocytes/100 WBC (Bld) 15.4 % 15.0 - 45.0 % [facility] MCH (RBC) [Entitic mass] 29.5 pg 26. 0 - 34.0 pg [facility] MCHC (RBC) [Mass/Vol] 30.9 % 30.5 - 36.0 % [facility] MCV (RBC) [Entitic vol] 95.6 fL 77.0 - 99.0 fL [facility] Monocytes (Bld) [#/Vol] 0.9 10*3/uL 0.0 - 0.9 10*3/uL [facility] Monocytes/100 WBC (Bld) 13.2 % High 5.0 - 13.0 % [facility] Neutrophils (Bld) [#/Vol] 4.5 10*3/uL 1.8 - 7.5 10*3/uL [facility] Neutrophils/100 WBC (Bld) 66 % 38.0 - 82.0 % [facility] Nucleated RBC/100 WBC (Bld) [Ratio] 0 % [facility] Platelet mean volume (Bld) [Entitic vol] 8.8 fL Low 9.0 - 12.7 fL [facility] Platelets (Bld) [#/Vol] 329 10*3/uL 140 - 440 10*3/uL [facility] RBC (Bld) [#/Vol] 3.15 10*6/uL Low 4.40 - 5.9 0 10*6/uL [facility] WBC (Bld) [#/Vol] 6.8 10*3/uL 3.6 - 10.7 10*3/uL [facility] CBC WITH AUTO DIFFERENTIALon 04-05-2025 Basophils (Bld) [#/Vol] 0.1 10*3/uL Normal 0.0-0.2 [facility] Comment on above: Performed By: #### L [id number] ####Recycling Coordinator: FENG CONSTANTINO ([id number])[facility] [place] ([facility])[address] Basophils/100 WBC (Bld) 1.5 % Normal 0.0-2.0 [facility] Comment on above: Performed By: #### L [id number] ####Recycling Coordinator: FENG CONSTANTINO ([id number])[facility] [place] ([facility])[address] Eosinophils (Bld) [#/Vol] 0.2 10*3/uL Normal 0.0-0.5 [facility] Comment on above: Performed By: #### L [id number] ####Recycling Coordinator: FENG CONSTANTINO ([id number])[facility] [place] ([facility])[address] Eosinophils/100 WBC (Bld) 3.5 % Normal 0.0-6.0 [facility] Comment on above: Performed By: #### L [id number] ####Recycling Coordinator: FENG CONSTANTINO ([id number])[facility] [place] ([facility])[address] Erythrocyte distribution width (RBC) [Ratio] 16.0 % High 11.5-15.0 [facility] Comment on above: Performed By: #### L [id number] ####Recycling Coordinator: FENG CONSTANTINO ([phone])[facility] [place] ([facility])[address] Hematocrit (Bld) [Volume fraction] 30.1 % Low 40.0-52.0 [facility] Comment on above: Performed By: #### L [id number] ####Recycling Coordinator: FENG COLEGEORGE ([phone])[facility] ([facility] Hemoglobin (Bld) [Mass/Vol] 9.3 g/dL Low 13.0-18.0 [facility] Comment on above: Performed By: #### L [id number] ####Recycling Coordinator: FENG DOUGIE ([id number])[facility] ([facility])[address] IMMATURE GRANS % 0.4 % Normal 0.0-2.0 [facility] Comment on above: Performed By: #### L [id number] ####Recycling Coordinator: FENG VILLAGOMEZALESIA ([phone])[facility] ([facility])[address] [place] [address] IMMATURE GRANS ABSOLUTE 0.0 10*3/uL Normal <0.1 [facility] Comment on above: Performed By: #### L [id number] ####Recycling Coordinator: FENG COLEGEORGE ([phone])[facility] ([facility])[address] [place] [address] Lymphocytes (Bld) [#/Vol] 1.1 10*3/uL Normal 1.0-4.3 [facility] Comment on above: Performed By: #### L [id number] ####Recycling Coordinator: FENG COLEGEORGE ([id number])[facility] ([facility] [place] [address] Lymphocytes/100 WBC (Bld) 15.4 % Normal 15.0-45.0 [facility] Comment on above: Performed By: #### L [id number] ####Recycling Coordinator: FENG CONSTANTINO ([phone])[facility] ([facility] [place] [address] MCH (RBC) [Entitic mass] 29.5 pg Normal 26.0-34.0 [facility] Comment on above: Performed By: #### L [id number] ####Recycling Coordinator: FENG VILLAGOMEZMitzyGEORGE ([id number])[facility] ([facility])[address] MCHC 30.9 % Normal 30.5-36.0 [facility] Comment on above: Performed By: #### L [id number] ####Recycling Coordinator: FENG VILLAGOMEZALESIA ([id number])[facility] ([facility])[address] MCV (RBC) [Entitic vol] 95.6 fL Normal 77.0-99.0 [facility] Comment on above: Performed By: #### L [id number] ####Recycling Coordinator: FENG DOUGIE ([id number])[facility] [place] ([facility])[address] Monocytes (Bld) [#/Vol] 0.9 10*3/uL Normal 0.0-0.9 [facility] Comment on above: Performed By: #### L [id number] ####Recycling Coordinator: FENG VILLAGOMEZMitzyGEORGE ([phone])[facility] ([facility])[address] Monocytes/100 WBC (Bld) 13.2 % High 5.0-13.0 [facility] Comment on above: Performed By: #### L [id number] ####Recycling Coordinator: FENG VILLAGOMEZALESIA ([id number])[facility] ([facility])[address] NEUTROPHILS ABSOLUTE 4.5 10*3/uL Normal 1.8-7.5 [facility] Comment on above: Performed By: #### L [id number] ####Recycling Coordinator: FENG COLEGEORGE ([id number])[facility] [place] ([facility])[address] Neutrophils/100 WBC (Bld) 66.0 % Normal 38.0-82.0 [facility] Comment on above: Performed By: #### L [id number] ####Recycling Coordinator: FENG CONSTANTINO ([id number])[facility] [place] ([facility])[address] NRBC 0.0 /100 WBCs Normal 0.0-2.0 [facility] Comment on above: Performed By: #### L [id number] ####Recycling Coordinator: FENG CONSTANTINO ([id number])[facility] [place] ([facility])[address] Platelet mean volume (Bld) [Entitic vol] 8.8 fL Low 9.0-12.7 [facility] Comment on above: Performed By: #### L [id number] ####Recycling Coordinator: FENG CONSTANTINO ([id number])[facility] [place] ([facility])[address] Platelets (Bld) [#/Vol] 329 10*3/uL Normal 140-440 [facility] Comment on above: Performed By: #### L [id number] ####Recycling Coordinator: FENG CONSTANTINO ([id number])[facility] [place] ([facility])[address] RBC (Bld) [#/Vol] 3.15 10*6/uL Low 4.40-5.90 [facility] Comment on above: Performed By: #### L [id number] ####Recycling Coordinator: FENG CONSTANTINO ([phone])[facility] [place] ([facility])[address] WBC (Bld) [#/Vol] 6.8 10*3/uL Normal 3.6-10.7 [facility] Comment on above: Performed By: #### L [id number] ####Recycling Coordinator: FENG CONSTANTINO ([phone])[facility] [place] ([facility])[address] ECG 12-LEADon 04-05-2025 ECG 12-LEAD IMPRESSION: Atrial flutter with varied AV block, Right axis deviation Repol abnrm, severe global ischemia (LM/MVD) Prolonged QT interval Electronically Signed On 04-05-2025 10:13:24 EDT by Dieter Villegas Normal [facility] ED Nursing Noteon 04-05-2025 ED Nursing Note Dialysis at bedside. Normal [facility] ED Nursing Note Pt has no complaints at this time. Normal [facility] ED Nursing Note Normal [facility] ED Provider Noteon ED Provider Note Normal [facility] HIGH SENSITIVITY TROPONIN, S ERIAL BASELINEon 04-05-2025 TROPONIN HS SERIAL BASELINE 36 ng/L High <=35 [facility] Comment on above: Result Comment: In i ndividuals presenting with symptoms > 2h, a baseline troponin <= 5 ng/L suggests acutecardiac injury is unlikely and further serial testing is generally not indicated. Performed By: #### L AB15, [id number] ####Recycling Coordinator: FENG CONSTANTINO ([phone])[facility] ([facility] [place] [address] HIGH SENSITIVITY TROPONIN, S ERIAL, SECOND TESTon 04-05-2025 2H TROPONIN HS (SERIAL 2ND TROPONIN) 29 ng/L Normal <=35 [facility] Comment on above: Result Comment: Risi ng or falling troponin delta between 2 ??? 15 ng/L as compared to baseline value requires a 3rd serial troponin Performed By: #### L [id number] ####Recycling Coordinator: FENG CONSTANTINO ([id number])[facility] ([facility])[address] [place] [address] Laboratory - Coagulationon 0 04-05-2025 PT Coag (Bld) [Time] 26.3 s High 9.0 - 12.0 s [facility] No Panel Informationon 04-05 2h Troponin HS (Serial 2nd Troponin) 29 ng/L NINF - 35 ng/L [facility] Comment on above: Rising or falling tr oponin delta between 2 15 ng/L as compared to baseline value requires a 3rd serial troponin Interpretation and review of laboratory results Normal [facility] Interpretation and review of laboratory results Abnormal [facility] Troponin HS Serial Baseline 36 ng/L High NINF - 35 ng/L [facility] [facility] Comment on above: In individuals prese nting with symptoms > 2h, a baseline troponin <= 5 ng/L suggests acute cardiac injury is unlikely and further serial testing is generally not indicated. [facility] P Tiona 0 degrees [facility] UT Interval 0 ms [facility] QRS Tiona 101 degrees [facility] QRSD Interval 102 ms [facility] QT Interval 361 ms [facility] QTC Interval 510 ms [facility] T Wave Tiona 0 degrees [facility] Atrial flutter with varied AV block, Right axis deviation Repol abnrm, severe global ischemia (LM/MVD) Prolonged QT interval Electronically Signed On 04-05-2025 10:13:24 EDT by Dieter Villegas CV Dieter Iyer MD - 04/05/2025 IMPRESSION: Atrial flutter with varied AV block, Right axis deviation Repol abnrm, severe global ischemia (LM/MVD) Prolonged QT interval Electronically Signed On 04-05-2025 10:13:24 EDT by Dieter Villegas [facility] Nursing Noteon 04-05-2025 Nursing Note Normal [facility] PROTHROMBIN TIMEon INR Coag (PPP) [Relative time] 2.6 {INR} High 0.9-1.1 [facility] Comment on above: Result Comment: Vaughn [...] Myocardial Infarction Performed By: #### L AB320 ####Recycling Coordinator: FENG CONSTANTINO ([id number])[facility] CINDY (SBAB)[address] [place] [address] PT Coag (PPP) [Time] 26.3 s High 9.0-12.0 [facility] Comment on above: Performed By: #### L AB320 ####Recycling Coordinator: FENG CONSTANTINO ([id number])[facility] GALINDOChandana (SBHLAB)[address] [place] [address] PT Coag (Bld) [Time]on 04-05 INR Coag (PPP) [Relative time] 2.6 {INR} High 0.9 - 1.1 [facility] Comment on above: Recommended Anticoag ulant Therapy: [...] Interpretation and review of laboratory results Abnormal [facility] Protime w/INR Fingerstickon 04-05-2025 INR Coag (PPP) [Relative time] 2.7 {INR} Normal [facility] Comment on above: Result Comment: Crit ical Value > 4.0 Performed By: #### L 100.0100, L300.3900, L500.4050 #### [facility] [address] [place], [place], [id number] Protime Coagsen 28.2 SEC High 11.7-14.9 [facility] Comment on above: Performed By: #### L 100.0100, L300.3900, L500.4050 #### [facility] [address] [place], [address] Vital signson 04-05-2025 Heart rate 120 /min bpm [facility] XR Chest 2 Viewson Cardiomegaly with median [...] Electronically Signed Date/Time: 04/05/2025 11:36 AM EDT [facility] Patient Name: JUN SNYDER : 1965 [...] the spine are present at multiple levels. [facility] Devonte Bocanegra MD - 04/05/2025 Patient [...] Electronically Signed Date/Time: 04/05/2025 11:36 AM EDT [facility] Radiology Study observation (narrative) Apple Glez alth XR Chest 2 ViewsOrdered By: Devonte Bocanegra on 04-05-2025 [facility] Work Phone: 36on 04-04-2025 36 noted Normal [facility] 36 Normal [facility] 36 Patient is still in facility. I spoke with his nurse, Chandrika, and she stated that he is suppose to be discharging around 04/26. She is not sure where he will be going. I will call dyeing machine back tender to that date and speak with the social media job titles. Normal [facility] 36on 04-02-2025 36 Called patient to confirm appointment with Maryann in [place] 04/03/25, and he is at [facility]. Spoke to Rosa and left message for nurse to call about appointment. Normal [facility] CBC W/Diff, Automatedon 07- Absolute Lymph 0.83 X10 3/uL Normal 0.83-4.51 [facility] Comment on above: Order Comment: 412.2 Performed By: #### L 100.0100, L300.3900, L500.4050 #### [facility] [address] [place], [address] Absolute Neut 4.2 X10 3/uL Normal 2.0-7.7 [facility] Comment on above: Order Comment: 412.2 Performed By: #### L 100.0100, L300.3900, L500.4050 #### [facility] [address] [place], [address] Basophils/100 WBC (Bld) 1.9 % High 0-1 [facility] Comment on above: Order Comment: 412.2 Performed By: #### L 100.0100, L300.3900, L500.4050 #### [facility] [address] [place], [address] Eosinophils/100 WBC (Bld) 3.5 % Normal 0-5 [facility] Comment on above: Order Comment: 412.2 Performed By: #### L 100.0100, L300.3900, L500.4050 #### [facility] [address] [place], [address] Erythrocyte distribution width (RBC) [Ratio] 16.3 % High 11.6-14.6 [facility] Comment on above: Order Comment: 412.2 Performed By: #### L 100.0100, L300.3900, L500.4050 #### [facility] [address] [place], [address] Hematocrit (Bld) [Volume fraction] 32.8 % Low 40-54 [facility] Comment on above: Order Comment: 412.2 Performed By: #### L 100.0100, L300.3900, L500.4050 #### [facility] [address] [place], [address] Hemoglobin (Bld) [Mass/Vol] 10.1 g/dL Low 13.0-16.5 [facility] Comment on above: Order Comment: 412.2 Performed By: #### L 100.0100, L300.3900, L500.4050 #### [facility] [address] [place], [address] IG% 0.500 Normal 0.0-0.9 [facility] Comment on above: Order Comment: 412.2 Result Comment: IG% - Immature Granulocytes (promyelocytes, myelocytes and metamyelocytes) > 1% indicates that a LEFT SHIFT is Present. Performed By: #### L 100.0100, L300.3900, L500.4050 #### [facility] [address] [place], [address] Lymphocytes/100 WBC (Bld) 13.2 % Low 19-41 [facility] Comment on above: Order Comment: 412.2 Performed By: #### L 100.0100, L300.3900, L500.4050 #### [facility] [address] [place], [address] MCH (RBC) [Entitic mass] 30.1 pg Normal 27.0-32.0 [facility] Comment on above: Order Comment: 412.2 Performed By: #### L 100.0100, L300.3900, L500.4050 #### [facility] [address] [place], [address] MCHC (RBC) [Mass/Vol] 30.8 g/dL Low 32-36 [facility] Comment on above: Order Comment: 412.2 Performed By: #### L 100.0100, L300.3900, L500.4050 #### [facility] [address] [place], [address] MCV (RBC) [Entitic vol] 97.6 fL High 80-94 [facility] Comment on above: Order Comment: 412.2 Performed By: #### L 100.0100, L300.3900, L500.4050 #### [facility] [address] [place], [address] Monocytes/100 WBC (Bld) 14.3 % High 0-10 [facility] Comment on above: Order Comment: 412.2 Performed By: #### L 100.0100, L300.3900, L500.4050 #### [facility] [address] [place], [address] Neutrophils/100 WBC (Bld) 66.6 % Normal 47-70 [facility] Comment on above: Order Comment: 412.2 Performed By: #### L 100.0100, L300.3900, L500.4050 #### [facility] [address] [place], [address] Nucleated RBC (Bld) [#/Vol] 0 10*3/uL Normal 0-5 [facility] Comment on above: Order Comment: 412.2 Performed By: #### L 100.0100, L300.3900, L500.4050 #### [facility] [address] [place], [address] Platelet mean volume (Bld) [Entitic vol] 9.4 fL Normal 6.2-12.0 [facility] Comment on above: Order Comment: 412.2 Performed By: #### L 100.0100, L300.3900, L500.4050 #### [facility] [address] [place], [address] Platelets (Bld) [#/Vol] 383 10*3/uL Normal 150-450 [facility] Comment on above: Order Comment: 412.2 Performed By: #### L 100.0100, L300.3900, L500.4050 #### [facility] [address] [place], [address] RBC (Bld) [#/Vol] 3.36 10*6/uL Low 4.6-6.2 [facility] Comment on above: Order Comment: 412.2 Performed By: #### L 100.0100, L300.3900, L500.4050 #### [facility] [address] [place], [address] RDW SD 58.6 fl High 35.1-43.9 [facility] Comment on above: Order Comment: 412.2 Performed By: #### L 100.0100, L300.3900, L500.4050 #### [facility] [address] [place], [address] WBC (Bld) [#/Vol] 6.3 10*3/uL Normal 4.4-11.0 [facility] Comment on above: Order Comment: 412.2 Performed By: #### L 100.0100, L300.3900, L500.4050 #### [facility] [address] [place], [address] Comprehensive Metabolic Prof vton 04-02-2025 Albumin [Mass/Vol] 3.2 g/dL Low 3.5-5.0 [facility] Comment on above: Order Comment: 412.2 Performed By: #### L 100.0100, L300.3900, L500.4050 #### [facility] [address] [place], [address] Albumin/Globulin [Mass ratio] 0.8 {ratio} Low 0.9-2.4 [facility] Comment on above: Order Comment: 412.2 Performed By: #### L 100.0100, L300.3900, L500.4050 #### [facility] [address] [place], [address] ALK PHOS 229 U/L High 40-129 [facility] Comment on above: Order Comment: 412.2 Performed By: #### L 100.0100, L300.3900, L500.4050 #### [facility] [address] [place], [address] ALT [Catalytic activity/Vol] 20 U/L Normal <=46 [facility] Comment on above: Order Comment: 412.2 Performed By: #### L 100.0100, L300.3900, L500.4050 #### [facility] [address] [place], [address] AST [Catalytic activity/Vol] 46 U/L High <=37 [facility] Comment on above: Order Comment: 412.2 Performed By: #### L 100.0100, L300.3900, L500.4050 #### [facility] [address] [place], [address] Bilirubin [Mass/Vol] 0.74 mg/dL Normal 0.00-1.30 [facility] Comment on above: Order Comment: 412.2 Performed By: #### L 100.0100, L300.3900, L500.4050 #### [facility] [address] [place], [address] BUN/CRE 8.2 RATIO Low 10-20 [facility] Comment on above: Order Comment: 412.2 Performed By: #### L 100.0100, L300.3900, L500.4050 #### [facility] [address] [place], [address] Calcium [Mass/Vol] 9.9 mg/dL Normal 7.6-11.0 [facility] Comment on above: Order Comment: 412.2 Performed By: #### L 100.0100, L300.3900, L500.4050 #### [facility] [address] [place], [address] Chloride [Moles/Vol] 98 mmol/L Normal 98-108 [facility] Comment on above: Order Comment: 412.2 Performed By: #### L 100.0100, L300.3900, L500.4050 #### [facility] [address] [place], [address] CO2 [Moles/Vol] 25.9 mmol/L Normal 21.0-32.0 [facility] Comment on above: Order Comment: 412.2 Performed By: #### L 100.0100, L300.3900, L500.4050 #### [facility] [address] [place], [address] Creatinine [Mass/Vol] 5.14 mg/dL High 0.70-1.20 [facility] Comment on above: Order Comment: 412.2 Performed By: #### L 100.0100, L300.3900, L500.4050 #### [facility] [address] [place], [address] GAP 12 Normal 5-15 [facility] Comment on above: Order Comment: 412.2 Performed By: #### L 100.0100, L300.3900, L500.4050 #### [facility] [address] [place], [address] GFR/1.73 sq M.predicted among non-blacks MDRD (S/P/Bld) [Vol rate/Area] 12 mL/min/{1.73_m2} Low >60 [facility] Comment on above: Order Comment: 412.2 Result Comment: mL/m in/1.73m2 CKD-EPI Creatinine Equation (2020) Performed By: #### L 100.0100, L300.3900, L500.4050 #### [facility] [address] [place], [address] Globulin (S) [Mass/Vol] 4.2 g/dL Normal 2.2-4.2 [facility] Comment on above: Order Comment: 412.2 Performed By: #### L 100.0100, L300.3900, L500.4050 #### [facility] [address] [place], [address] Glucose [Mass/Vol] 84 mg/dL Normal 70-99 [facility] Comment on above: Order Comment: 412.2 Performed By: #### L 100.0100, L300.3900, L500.4050 #### [facility] [address] [place], [address] Potassium [Moles/Vol] 5.6 mmol/L High 3.3-5.1 [facility] Comment on above: Order Comment: 412.2 Performed By: #### L 100.0100, L300.3900, L500.4050 #### [facility] [address] [place], [address] Sodium [Moles/Vol] 136 mmol/L Normal 133-145 [facility] Comment on above: Order Comment: 412.2 Performed By: #### L 100.0100, L300.3900, L500.4050 #### [facility] [address] [place], [address] T PROT 7.5 g/dL Normal 5.9-8.4 [facility] Comment on above: Order Comment: 412.2 Performed By: #### L 100.0100, L300.3900, L500.4050 #### [facility] [address] [place], [address] Urea nitrogen [Mass/Vol] 42 mg/dL High 4-19 [facility] Comment on above: Order Comment: 412.2 Performed By: #### L 100.0100, L300.3900, L500.4050 #### [facility] [address] [place], [address] Prothrombin Time w/INRon INR Coag (PPP) [Relative time] 2.1 {INR} Normal [facility] Comment on above: Order Comment: 412.2 Performed By: #### L 100.0100, L300.3900, L500.4050 #### [facility] [address] [place], [address] PT Coag (PPP) [Time] 23.9 s High 11.7-14.9 [facility] Comment on above: Order Comment: 412.2 Performed By: #### L 100.0100, L300.3900, L500.4050 #### [facility] [address] [place], [address] Prothrombin Time w/INRon INR Coag (PPP) [Relative time] 3.4 {INR} Normal [facility] Comment on above: Performed By: #### L 100.0100, L300.3900, L500.4050 #### [facility] [address] [place], [address] PT Coag (PPP) [Time] 35.4 s High 11.7-14.9 [facility] Comment on above: Performed By: #### L 100.0100, L300.3900, L500.4050 #### [facility] [address] [place], [address] 36on 03-26-2025 36 3rd attempt unable to speak to Sabino she's not in the office at them moment. Left message to call the office back to schedule Normal [facility] 36 Sabino has been notified the visit can not be virtual Normal [facility] 36 Name of Caller: SabinoMitzy Moncada Contact Reason for Appointment: Change 04/05/25 hospital follow up to a vv. Please call and advise. Office Name: [facility] Neurology Cindy Normal [facility] CBC W/Diff, Automatedon 02-27 Anisocytosis Ql (Bld) 1+ Normal [facility] Comment on above: Order Comment: 412.2 Performed By: #### L 100.0100, L300.3900, L500.4050 #### [facility] [address] [place], [address] Comprehensive Metabolic Prof ilon 03-26-2025 Albumin [Mass/Vol] 3.2 g/dL Low 3.5-5.0 [facility] Comment on above: Order Comment: 412.2 Performed By: #### L 100.0100, L300.3900, L500.4050 #### [facility] [address] [place], [address] Albumin/Globulin [Mass ratio] 0.8 {ratio} Low 0.9-2.4 [facility] Comment on above: Order Comment: 412.2 Performed By: #### L 100.0100, L300.3900, L500.4050 #### [facility] [address] [place], [address] ALK PHOS 238 U/L High 40-129 [facility] Comment on above: Order Comment: 412.2 Performed By: #### L 100.0100, L300.3900, L500.4050 #### [facility] [address] [place], [address] ALT [Catalytic activity/Vol] 21 U/L Normal <=46 [facility] Comment on above: Order Comment: 412.2 Performed By: #### L 100.0100, L300.3900, L500.4050 #### [facility] [address] [place], [address] AST [Catalytic activity/Vol] 53 U/L High <=37 [facility] Comment on above: Order Comment: 412.2 Performed By: #### L 100.0100, L300.3900, L500.4050 #### [facility] [address] [place], [address] Bilirubin [Mass/Vol] 0.58 mg/dL Normal 0.00-1.30 [facility] Comment on above: Order Comment: 412.2 Performed By: #### L 100.0100, L300.3900, L500.4050 #### [facility] [address] [place], [address] BUN/CRE 6.9 RATIO Low 10-20 [facility] Comment on above: Order Comment: 412.2 Performed By: #### L 100.0100, L300.3900, L500.4050 #### [facility] [address] [place], [address] Calcium [Mass/Vol] 9.6 mg/dL Normal 7.6-11.0 [facility] Comment on above: Order Comment: 412.2 Performed By: #### L 100.0100, L300.3900, L500.4050 #### [facility] [address] [place], [address] Chloride [Moles/Vol] 102 mmol/L Normal 98-108 [facility] Comment on above: Order Comment: 412.2 Performed By: #### L 100.0100, L300.3900, L500.4050 #### [facility] [address] [place], [address] CO2 [Moles/Vol] 22.8 mmol/L Normal 21.0-32.0 [facility] Comment on above: Order Comment: 412.2 Performed By: #### L 100.0100, L300.3900, L500.4050 #### [facility] [address] [place], [address] Creatinine [Mass/Vol] 5.21 mg/dL High 0.70-1.20 [facility] Comment on above: Order Comment: 412.2 Performed By: #### L 100.0100, L300.3900, L500.4050 #### [facility] [address] [place], [address] GAP 14 Normal 5-15 [facility] Comment on above: Order Comment: 412.2 Performed By: #### L 100.0100, L300.3900, L500.4050 #### [facility] [address] [place], [address] GFR/1.73 sq M.predicted among non-blacks MDRD (S/P/Bld) [Vol rate/Area] 12 mL/min/{1.73_m2} Low >60 [facility] Comment on above: Order Comment: 412.2 Result Comment: mL/m in/1.73m2 CKD-EPI Creatinine Equation (2020) Performed By: #### L 100.0100, L300.3900, L500.4050 #### [facility] [address] [place], [address] Globulin (S) [Mass/Vol] 4.1 g/dL Normal 2.2-4.2 [facility] Comment on above: Order Comment: 412.2 Performed By: #### L 100.0100, L300.3900, L500.4050 #### [facility] [address] [place], [address] Glucose [Mass/Vol] 87 mg/dL Normal 70-99 [facility] Comment on above: Order Comment: 412.2 Performed By: #### L 100.0100, L300.3900, L500.4050 #### [facility] [address] [place], [address] Potassium [Moles/Vol] 4.9 mmol/L Normal 3.3-5.1 [facility] Comment on above: Order Comment: 412.2 Performed By: #### L 100.0100, L300.3900, L500.4050 #### [facility] [address] [place], [address] Sodium [Moles/Vol] 139 mmol/L Normal 133-145 [facility] Comment on above: Order Comment: 412.2 Performed By: #### L 100.0100, L300.3900, L500.4050 #### [facility] [address] [place], [address] T PROT 7.2 g/dL Normal 5.9-8.4 [facility] Comment on above: Order Comment: 412.2 Performed By: #### L 100.0100, L300.3900, L500.4050 #### [facility] [address] [place], [address] Urea nitrogen [Mass/Vol] 36 mg/dL High 4-19 [facility] Comment on above: Order Comment: 412.2 Performed By: #### L 100.0100, L300.3900, L500.4050 #### [facility] [address] [place], [address] Prothrombin Time w/INRon INR Coag (PPP) [Relative time] 3.3 {INR} Normal [facility] Comment on above: Order Comment: 412.2 Performed By: #### L 100.0100, L300.3900, L500.4050 #### [facility] [address] [place], [address] PT Coag (PPP) [Time] 34.4 s High 11.7-14.9 [facility] Comment on above: Order Comment: 412.2 Performed By: #### L 100.0100, L300.3900, L500.4050 #### [facility] [address] [place], [address] 36on 03-22-2025 36 Patient discharged to [facility] on 03/21 - please follow [facility] normalized rat io (INR) calculationOrdered By: Kayley Melendrez on 03-22-2025 INR Coag (Bld) [Relative time] 2.9 {INR} [facility] Prothrombin Time w/INRon INR Coag (PPP) [Relative time] 2.9 {INR} [facility] Comment on above: Performed By: #### L 300.3900 #### [facility] [address] [place], [address] PT Coag (PPP) [Time] 30.7 s High 11.7-14.9 [facility] Comment on above: Performed By: #### L 300.3900 #### [facility] [address] [place], [address] Prothrombin timeOrdered By: Kayley Melendrez on 03-22-2025 PT Coag (PPP) [Time] 30.7 s High 11.7-14.9 [facility] 30on 03-21-[address] [facility] [id number] 03-21-2025 [id number] Normal [facility] [id number] MAR, Labs & Discharge med list transmitted to [facility] [place] via [employer] per TCC request. Electronically signed by NELSON Rodrigues Normal [facility] [id number] Normal [facility] [id number] Normal [facility] APTTon 03-21-2025 aPTT Coag (Bld) [Time] 50.7 s High 20.0-30.5 [facility] Comment on above: Result Comment: ARPAN Kaplan COMMENTS:NOTE: The therapeutic time for Heparin anticoagulation, based on Xa activity inhibition, is an APTT of 46-80 seconds. Performed By: #### L AB320, [id number] ####Recycling Coordinator: DOMENICA JARA ([id number])[facility])[address] [place] [address] CBC (HEMOGRAM)on 03-21-2025 Erythrocyte distribution width (RBC) [Ratio] 19.9 % High 11.5-15.0 [facility] Comment on above: Performed By: #### L AB294 ####Recycling Coordinator: DOMENICA JARA ([id number])[address] Hematocrit (Bld) [Volume fraction] 29.2 % Low 40.0-52.0 [facility] Comment on above: Performed By: #### L AB294 ####Recycling Coordinator: DOMENICA JARA ([id number])[facility])[address] [place] [address] Hemoglobin (Bld) [Mass/Vol] 8.8 g/dL Low 13.0-18.0 [facility] Comment on above: Performed By: #### L AB294 ####Recycling Coordinator: DOMENICA JARA ([id number])[address] MCH (RBC) [Entitic mass] 30.2 pg Normal 26.0-34.0 [facility] Comment on above: Performed By: #### L AB294 ####Recycling Coordinator: DOMENICA JARA ([id number])[facility] ([facility])[address] [place] [address] MCHC 30.1 % Low 30.5-36.0 [facility] Comment on above: Performed By: #### L AB294 ####Recycling Coordinator: DOMENICA JARA ([id number])[facility])[address] [place] [address] MCV (RBC) [Entitic vol] 100.3 fL High 77.0-99.0 [facility] Comment on above: Performed By: #### L AB294 ####Recycling Coordinator: DOMENICA JARA ([id number])[facility])[address] [place] [address] Platelet mean volume (Bld) [Entitic vol] 8.9 fL Low 9.0-12.7 [facility] Comment on above: Performed By: #### L AB294 ####Recycling Coordinator: DOMENICA JARA ([id number])[facility] ([facility])[address] [place] [address] Platelets (Bld) [#/Vol] 271 10*3/uL Normal 140-440 [facility] Comment on above: Performed By: #### L AB294 ####Recycling Coordinator: DOMENICA JARA ([id number])[facility])[address] [place] [address] RBC (Bld) [#/Vol] 2.91 10*6/uL Low 4.40-5.90 [facility] Comment on above: Performed By: #### L AB294 ####Recycling Coordinator: DOMENICA JARA ([id number])[facility])[address] [place] [address] WBC (Bld) [#/Vol] 8.0 10*3/uL Normal 3.6-10.7 [facility] Comment on above: Performed By: #### L AB294 ####Recycling Coordinator: DOMENICA JARA ([id number])[facility] ([facility])[address] [place] [address] CBC panel Auto (Bld)on 03-21 Erythrocyte distribution width (RBC) [Ratio] 19.9 % High 11.5 - 15.0 % [facility] Hematocrit (Bld) [Volume fraction] 29.2 % Low 40.0 - 52.0 % [facility] Hemoglobin (Bld) [Mass/Vol] 8.8 g/dL Low 13.0 - 18.0 g/dL [facility] Interpretation and review of laboratory results Abnormal [facility] MCH (RBC) [Entitic mass] 30.2 pg 26. 0 - 34.0 pg [facility] MCHC (RBC) [Mass/Vol] 30.1 % Low 30.5 - 36.0 % [facility] MCV (RBC) [Entitic vol] 100.3 fL High 77.0 - 99.0 fL [facility] Platelet mean volume (Bld) [Entitic vol] 8.9 fL Low 9.0 - 12.7 fL [facility] Platelets (Bld) [#/Vol] 271 10*3/uL 140 - 440 10*3/uL [facility] RBC (Bld) [#/Vol] 2.91 10*6/uL Low 4.40 - 5.9 0 10*6/uL [facility] WBC (Bld) [#/Vol] 8 10*3/uL 3.6 - 10.7 10*3/uL [facility] COMPREHENSIVE METABOLIC PANE Victor M 03-21-2025 Albumin [Mass/Vol] 2.0 g/dL Low 3.5-5.0 [facility] Comment on above: Performed By: #### L AB17, [id number] ####Recycling Coordinator: DOMENICA JARA ([id number])[facility] [place] [address] ALP [Catalytic activity/Vol] 217 U/L High 40-150 [facility] Comment on above: Performed By: #### L AB17, [id number] ####Recycling Coordinator: DOMENICA JARA ([id number])[facility] [place] [address] ALT [Catalytic activity/Vol] 13 U/L Normal <40 [facility] Comment on above: Performed By: #### L AB17, [id number] ####Recycling Coordinator: DOMENICA JARA ([id number])[facility])[address] [place] [address] Anion gap [Moles/Vol] 8 mmol/L Normal 3-13 [facility] Comment on above: Performed By: #### L AB17, [id number] ####Recycling Coordinator: DOMENICA JARA ([id number])[facility] ([facility])[address] [place] [address] AST [Catalytic activity/Vol] 59 U/L High <34 [facility] Comment on above: Performed By: #### L AB17, [id number] ####Recycling Coordinator: DOMENICA JARA ([id number])[facility])[address] [place] [address] Bilirubin [Mass/Vol] 0.9 mg/dL Normal <1.2 [facility] Comment on above: Performed By: #### L AB17, [id number] ####Recycling Coordinator: DOMENICA JARA ([id number])[facility] ([facility])[address] [place] [address] Calcium [Mass/Vol] 9.0 mg/dL Normal 8.4-10.2 [facility] Comment on above: Performed By: #### L AB17, [id number] ####Recycling Coordinator: DOMENICA JARA ([id number])[facility])[address] [place] [address] [place] Chloride [Moles/Vol] 99 mmol/L Normal 98-107 [facility] Comment on above: Performed By: #### L AB17, [id number] ####Recycling Coordinator: DOMENICA JARA ([id number])[facility])[address] [place] [address] [place] CO2 [Moles/Vol] 27 mmol/L Normal 22-29 [facility] Comment on above: Performed By: #### L AB17, [id number] ####Recycling Coordinator: DOMENICA JARA ([id number])[facility])[address] [place] [address] Creatinine [Mass/Vol] 3.36 mg/dL High 0.72-1.25 [facility] Comment on above: Performed By: #### L AB17, [id number] ####Recycling Coordinator: DOMENICA JARA ([id number])[facility])[address] [place] [address] [place] GLOMERULAR FILTRATION RATE ML/MIN/1.73 SQ M.PREDICTED 20.2 mL/min/1.73m*2 Low >60.0 [facility] Comment on above: Result Comment: Calc ulation based on the Chronic Kidney Disease Epidemiology Collaboration (CKD-EPI) equation refit without adjustment for race Performed By: #### L AB17, [id number] ####Recycling Coordinator: DOMENICA JARA ([id number])[facility])[address] [place] [address] Glucose [Mass/Vol] 91 mg/dL Normal 74-100 [facility] Comment on above: Performed By: #### L AB17, [id number] ####Recycling Coordinator: DOMENICA JARA ([id number])[facility])[address] [place] [address] Potassium [Moles/Vol] 5.0 mmol/L Normal 3.5-5.1 [facility] Comment on above: Result Comment: [facility] potassium values may be up to 0.5 mmol/L lower than serum values. Performed By: #### L AB17, [id number] ####Recycling Coordinator: DOMENICA JARA ([id number])[facility] ([facility])[address] [place] [address] [place] Protein [Mass/Vol] 7.2 g/dL Normal 6.4-8.3 [facility] Comment on above: Performed By: #### L AB17, [id number] ####Recycling Coordinator: DOMENICA JARA ([id number])[facility])[address] [place] [address] [place] Sodium [Moles/Vol] 134 mmol/L Low 136-145 [facility] Comment on above: Performed By: #### L AB17, [id number] ####Recycling Coordinator: DOMENICA JARA ([id number])[facility] ([facility])[address] [place] [address] Urea nitrogen [Mass/Vol] 24 mg/dL High - [facility] Comment on above: Performed By: #### L AB17, [id number] ####Recycling Coordinator: DOMENICA JARA ([id number])[facility] ([facility])[address] [place] [address] Comprehensive metabolic 1998 panelon 03-21-2025 Albumin [Mass/Vol] 2 g/dL Low 3.5 - 5.0 g/dL [facility] ALP [Catalytic activity/Vol] 217 U/L High 40 - 150 U/L [facility] ALT [Catalytic activity/Vol] 13 U/L NINF - 40 U/L [facility] Anion gap [Moles/Vol] 8 mmol/L 3 - 13 mmol/L [facility] AST [Catalytic activity/Vol] 59 U/L High NINF - 34 U/L [facility] Bilirubin [Mass/Vol] 0.9 mg/dL NINF - 1.2 mg/dL [facility] Calcium [Mass/Vol] 9 mg/dL 8.4 - 10. 2 mg/dL [facility] Chloride [Moles/Vol] 99 mmol/L 98 - 10 7 mmol/L [facility] CO2 [Moles/Vol] 27 mmol/L 22 - 29 mmol/L [facility] Creatinine [Mass/Vol] 3.36 mg/dL High 0.72 - 1.25 mg/dL [facility] GFR/1.73 sq M.predicted (S/P/Bld) [Vol rate/Area] 20.2 mL/min Low - PINF [facility] Comment on above: Calculation based on the Chronic Kidney Disease Epidemiology Collaboration (CKD-EPI) equation refit without adjustment for race Glucose [Mass/Vol] 91 mg/dL 74 - 100 mg/dL [facility] Interpretation and review of laboratory results Abnormal [facility] Potassium [Moles/Vol] 5 mmol/L 3.5 - 5.1 mmol/L [facility] Comment on above: Plasma potassium macey ues may be up to 0.5 mmol/L lower than serum values. Protein [Mass/Vol] 7.2 g/dL 6.4 - 8.3 g/dL [facility] Sodium [Moles/Vol] 134 mmol/L Low 136 - 145 mmol/L [facility] Urea nitrogen [Mass/Vol] 24 mg/dL High 9 - 23 mg/d L [facility] Laboratory - Chemistry and C hemistry - challengeon 03-21-2025 Glucose [Mass/Vol] 88 mg/dL 70 - 100 mg/dL [facility] Magnesium [Mass/Vol] 1.8 mg/dL 1.6 - 2 .6 mg/dL [facility] Laboratory - Coagulationon 0 03-21-2025 PT Coag (Bld) [Time] 29 s High 9.0 - 12.0 s [facility] MAGNESIUMon 03-21-2025 Magnesium [Mass/Vol] 1.8 mg/dL Normal 1.6-2.6 [facility] Comment on above: Result Comment: ARPAN Kaplan COMMENTS:Higher values can be expected in females during menses. Performed By: #### L AB17, [id number] ####Recycling Coordinator: DOMENICA JARA ([id number])[facility] ([facility])[address] [place] [address] Magnesium [Mass/Vol]on 03-21 Interpretation and review of laboratory results Normal [facility] Higher values can be expected in females during menses. [facility] No Panel Informationon 03-21 Interpretation and review of laboratory results Normal [facility] Performed by: [place] [address] CLIA ID: [id number] [facility] Interpretation and review of laboratory results Abnormal [facility] Nursing Noteon 03-21-2025 Nursing Note Educated pt on importance of prescribed medications. Pt still refused. Normal [facility] PROTHROMBIN TIMEon INR Coag (PPP) [Relative time] 2.9 {INR} High 0.9-1.1 [facility] Comment on above: Result Comment: Vaughn [...] Myocardial Infarction Performed By: #### L AB320, [id number] ####Recycling Coordinator: DOMENICA JARA ([id number])[facility] ([facility])[address] [place] [address] PT Coag (PPP) [Time] 29.0 s High 9.0-12.0 [facility] Comment on above: Performed By: #### L AB320, [id number] ####Recycling Coordinator: DOMENICA JARA ([id number])[facility] ([facility])[address] [place] [address] PT Coag (Bld) [Time]on 03-21 INR Coag (PPP) [Relative time] 2.9 {INR} High 0.9 - 1.1 [facility] Comment on above: Recommended Anticoag ulant Therapy: [...] Infarction Progress Noteon 03-21-2025 Progress Note Normal [facility] [employer] [facility] Progress Note Patient quit smoking in September. Accepting of handout with contact information for additional support to remain quit if neccesary. Normal [facility] Progress Note Normal [facility] [employer] [facility] Progress Note Normal [facility] [employer] [facility] Progress Note Normal [facility] aPTT Coag (Bld) [Time]on aPTT Coag (PPP) [Time] 50.7 s High 20.0 - 30.5 s [facility] REVENT[facility] NOTE: The therapeutic time for Heparin anticoagulation, based on Xa activity inhibition, is an APTT of 46-80 seconds. [facility] 30on 03-20-2025 30 Normal [facility] [id number] 03-20-[id number] [facility] 36on 03-20-2025 36 Patient was re-admitted on 03/13. Inpatient consult team is following his care. Normal [facility] APTTon 03-20-2025 aPTT Coag (Bld) [Time] 68.9 s High 20.0-30.5 [facility] Comment on above: Result Comment: ARPAN Kaplan COMMENTS:NOTE: The therapeutic time for Heparin anticoagulation, based on Xa activity inhibition, is an APTT of 46-80 seconds. Performed By: #### L AB325 ####Recycling Coordinator: DOMENICA JARA ([id number])[address] aPTT Coag (Bld) [Time] 61.5 s High 20.0-30.5 [facility] Comment on above: Result Comment: ARPAN Kaplan COMMENTS:NOTE: The therapeutic time for Heparin anticoagulation, based on Xa activity inhibition, is an APTT of 46-80 seconds. Performed By: #### L AB325 ####Recycling Coordinator: DOMENICA JARA ([id number])[address] aPTT Coag (Bld) [Time] 44.1 s High 20.0-30.5 [facility] Comment on above: Result Comment: ARPAN Kaplan COMMENTS:NOTE: The therapeutic time for Heparin anticoagulation, based on Xa activity inhibition, is an APTT of 46-80 seconds. Performed By: #### L AB320, [id number] ####Recycling Coordinator: DOMENICA JARA ([id number])[address] CBC (HEMOGRAM)on 03-20-2025 Erythrocyte distribution width (RBC) [Ratio] 20.2 % High 11.5-15.0 [facility] Comment on above: Performed By: #### L AB294 ####Recycling Coordinator: DOMENICA JARA ([id number])[facility] Hematocrit (Bld) [Volume fraction] 30.3 % Low 40.0-52.0 [facility] Comment on above: Performed By: #### L AB294 ####Recycling Coordinator: DOMENICA JARA ([id number])[facility])[address] [place] [address] Hemoglobin (Bld) [Mass/Vol] 9.2 g/dL Low 13.0-18.0 [facility] Comment on above: Performed By: #### L AB294 ####Recycling Coordinator: DOMENICA JARA ([id number])[facility])[address] [place] [address] MCH (RBC) [Entitic mass] 30.7 pg Normal 26.0-34.0 [facility] Comment on above: Performed By: #### L AB294 ####Recycling Coordinator: DOMENICA AJRA ([id number])[facility])[address] [place] [address] MCHC 30.4 % Low 30.5-36.0 [facility] Comment on above: Performed By: #### L AB294 ####Recycling Coordinator: DOMENICA JARA ([id number])[facility] ([facility])[address] [place] [address] MCV (RBC) [Entitic vol] 101.0 fL High 77.0-99.0 [facility] Comment on above: Performed By: #### L AB294 ####Recycling Coordinator: DOMENICA JARA ([id number])[facility])[address] [place] [address] Platelet mean volume (Bld) [Entitic vol] 9.2 fL Normal 9.0-12.7 [facility] Comment on above: Performed By: #### L AB294 ####Recycling Coordinator: DOMENICA JARA ([id number])[facility])[address] [place] [address] Platelets (Bld) [#/Vol] 308 10*3/uL Normal 140-440 [facility] Comment on above: Performed By: #### L AB294 ####Recycling Coordinator: DOMENICA JARA ([id number])[address] RBC (Bld) [#/Vol] 3.00 10*6/uL Low 4.40-5.90 [facility] Comment on above: Performed By: #### L AB294 ####Recycling Coordinator: DOMENICA JARA ([phone])[facility])[address] [place] [address] WBC (Bld) [#/Vol] 8.1 10*3/uL Normal 3.6-10.7 [facility] Comment on above: Performed By: #### L AB294 ####Recycling Coordinator: DOMENICA JARA ([id number])[address] CBC panel Auto (Bld)Ordered By: Anu Graham on 03-20-2025 Erythrocyte distribution width (RBC) [Ratio] 20.2 % High 11.5 - 15.0 % [facility] Hematocrit (Bld) [Volume fraction] 30.3 % Low 40.0 - 52.0 % [facility] Hemoglobin (Bld) [Mass/Vol] 9.2 g/dL Low 13.0 - 18.0 g/dL [facility] Interpretation and review of laboratory results Abnormal [facility] MCH (RBC) [Entitic mass] 30.7 pg 26. 0 - 34.0 pg [facility] MCHC (RBC) [Mass/Vol] 30.4 % Low 30.5 - 36.0 % [facility] MCV (RBC) [Entitic vol] 101 fL High 77.0 - 99.0 fL [facility] Platelet mean volume (Bld) [Entitic vol] 9.2 fL 9.0 - 12.7 fL [facility] Platelets (Bld) [#/Vol] 308 10*3/uL 140 - 440 10*3/uL [facility] RBC (Bld) [#/Vol] 3 10*6/uL Low 4.40 - 5.9 0 10*6/uL [facility] WBC (Bld) [#/Vol] 8.1 10*3/uL 3.6 - 10.7 10*3/uL [facility] COMPREHENSIVE METABOLIC PANE Victor M 03-20-2025 Albumin [Mass/Vol] 1.9 g/dL Low 3.5-5.0 [facility] Comment on above: Performed By: #### L AB103, LAB17 ####Recycling Coordinator: DOMENICA JARA ([id number])[facility] ([facility])[address] [place] [address] ALP [Catalytic activity/Vol] 194 U/L High 40-150 [facility] Comment on above: Performed By: #### L AB103, LAB17 ####Recycling Coordinator: DOMENICA JARA ([id number])[facility] ([facility])[address] [place] [address] ALT [Catalytic activity/Vol] 13 U/L Normal <40 [facility] Comment on above: Performed By: #### L AB103, LAB17 ####Recycling Coordinator: DOMENICA JARA ([id number])[facility] ([facility])[address] [place] [address] Anion gap [Moles/Vol] 10 mmol/L Normal 3-13 [facility] Comment on above: Performed By: #### L AB103, LAB17 ####Recycling Coordinator: DOMENICA JARA ([phone])[facility] ([facility])[address] [place] [address] [place] AST [Catalytic activity/Vol] 46 U/L High <34 [facility] Comment on above: Performed By: #### L AB103, LAB17 ####Recycling Coordinator: DOMENICA JARA ([id number])[facility] ([facility])[address] [place] [address] [place] Bilirubin [Mass/Vol] 0.8 mg/dL Normal <1.2 [facility] Comment on above: Performed By: #### L AB103, LAB17 ####Recycling Coordinator: DOMENICA JARA ([id number])[facility] ([facility])[address] [place] [address] [place] Calcium [Mass/Vol] 9.1 mg/dL Normal 8.4-10.2 [facility] Comment on above: Performed By: #### L AB103, LAB17 ####Recycling Coordinator: DOMENICA JARA ([id number])[facility] ([facility])[address] [place] [address] Chloride [Moles/Vol] 102 mmol/L Normal 98-107 [facility] Comment on above: Performed By: #### L AB103, LAB17 ####Recycling Coordinator: DOMENICA JARA ([id number])[facility])[address] [place] [address] CO2 [Moles/Vol] 24 mmol/L Normal 22-29 [facility] Comment on above: Performed By: #### L AB103, LAB17 ####Recycling Coordinator: DOMENICA JARA ([phone])[facility] [place] [address] Creatinine [Mass/Vol] 4.28 mg/dL High 0.72-1.25 [facility] Comment on above: Performed By: #### L AB103, LAB17 ####Recycling Coordinator: DOMENICA JARA ([phone])[facility] ([facility])[address] [place] [address] GLOMERULAR FILTRATION RATE ML/MIN/1.73 SQ M.PREDICTED 15.1 mL/min/1.73m*2 Low >60.0 [facility] Comment on above: Result Comment: Calc ulation based on the Chronic Kidney Disease Epidemiology Collaboration (CKD-EPI) equation refit without adjustment for race Performed By: #### L AB103, LAB17 ####Recycling Coordinator: DOMENICA JARA ([id number])[facility] ([facility])[address] [place] [address] [place] Glucose [Mass/Vol] 91 mg/dL Normal 74-100 [facility] Comment on above: Performed By: #### L AB103, LAB17 ####Recycling Coordinator: DOMENICA JARA ([id number])[facility])[address] [place] [address] Potassium [Moles/Vol] 5.3 mmol/L High 3.5-5.1 [facility] Comment on above: Result Comment: [facility] potassium values may be up to 0.5 mmol/L lower than serum values. Performed By: #### L AB103, LAB17 ####Recycling Coordinator: DOMENICA JARA ([id number])[facility])[address] [place] [address] Protein [Mass/Vol] 7.3 g/dL Normal 6.4-8.3 [facility] Comment on above: Performed By: #### L AB103, LAB17 ####Recycling Coordinator: DOMENICA JARA ([id number])[facility])[address] [place] [address] Sodium [Moles/Vol] 136 mmol/L Normal 136-145 [facility] Comment on above: Performed By: #### L AB103, LAB17 ####Recycling Coordinator: DOMENICA JARA ([id number])[facility])[address] [place] [address] Urea nitrogen [Mass/Vol] 32 mg/dL High 9-23 [facility] Comment on above: Performed By: #### L AB103, LAB17 ####Recycling Coordinator: DOMENICA JARA ([id number])[facility])[address] [place] [address] Comprehensive metabolic 1998 panelon 03-20-2025 Albumin [Mass/Vol] 1.9 g/dL Low 3.5 - 5.0 g/dL [facility] ALP [Catalytic activity/Vol] 194 U/L High 40 - 150 U/L [facility] ALT [Catalytic activity/Vol] 13 U/L NINF - 40 U/L [facility] Anion gap [Moles/Vol] 10 mmol/L 3 - 13 mmol/L [facility] AST [Catalytic activity/Vol] 46 U/L High NINF - 34 U/L [facility] Bilirubin [Mass/Vol] 0.8 mg/dL NINF - 1.2 mg/dL [facility] Calcium [Mass/Vol] 9.1 mg/dL 8.4 - 10. 2 mg/dL [facility] Chloride [Moles/Vol] 102 mmol/L 98 - 10 7 mmol/L [facility] CO2 [Moles/Vol] 24 mmol/L 22 - 29 mmol/L [facility] Creatinine [Mass/Vol] 4.28 mg/dL High 0.72 - 1.25 mg/dL [facility] GFR/1.73 sq M.predicted (S/P/Bld) [Vol rate/Area] 15.1 mL/min Low - PINF [facility] Comment on above: Calculation based on the Chronic Kidney Disease Epidemiology Collaboration (CKD-EPI) equation refit without adjustment for race Glucose [Mass/Vol] 91 mg/dL 74 - 100 mg/dL [facility] Interpretation and review of laboratory results Abnormal [facility] Potassium [Moles/Vol] 5.3 mmol/L High 3.5 - 5.1 mmol/L [facility] Comment on above: Plasma potassium macey ues may be up to 0.5 mmol/L lower than serum values. Protein [Mass/Vol] 7.3 g/dL 6.4 - 8.3 g/dL [facility] Sodium [Moles/Vol] 136 mmol/L 136 - 145 mmol/L [facility] Urea nitrogen [Mass/Vol] 32 mg/dL High 9 - 23 mg/d L [facility] HBV surface Ab IA Qnon 03-20 Interpretation: <8.0 Non-Reactive 8.0-11.9 Equivocal >= 12.0 Ab Detected Note: If an equivocal result is interpreted, an antibody status is unable to be determined. Collect new specimen if clinically indicated. [facility] HBV surface Ag IA Qlon 03-20 Interpretation and review of laboratory results Normal [facility] HEPATITIS B SURFACE ANTIBODY on 03-20-2025 HEPATITIS B VIRUS SURFACE AB <8.0 Normal [facility] Comment on above: Result Comment: ARPAN R COMMENTS:Interpretation:<8.0 Non-Reactive8.0-11.9 Equivocal>= 12.0 Ab DetectedNote: If an equivocal result is interpreted, an antibody status is unable to be determined. Collect new specimen if clinically indicated. Performed By: #### L AB472, [id number] ####Recycling Coordinator: DOMENICA JARA ([id number])[facility] ([facility])[address] [place] [address] HEPATITIS B SURFACE ANTIGENo n 03-20-2025 HEPATITIS B VIRUS SURFACE AG Not detected Normal Not Detected [facility] Comment on above: Performed By: #### L AB472, [id number] ####Recycling Coordinator: DOMENICA JARA ([id number])[facility] ([facility])[address] [place] [address] Laboratory - Chemistry and C hemistry - challengeon 03-20-2025 Magnesium [Mass/Vol] 2 mg/dL 1.6 - 2 .6 mg/dL [facility] Laboratory - Coagulationon 0 03-20-2025 PT Coag (Bld) [Time] 19.1 s High 9.0 - 12.0 s [facility] Laboratory - Microbiology an d Antimicrobial susceptibilityon 03-20-2025 HBV surface Ag IA Ql Not detected Not Detected [facility] HBV surface Ab IA Qn mIU/mL [facility] MAGNESIUMon 03-20-2025 Magnesium [Mass/Vol] 2.0 mg/dL Normal 1.6-2.6 [facility] Comment on above: Result Comment: ARPAN R COMMENTS:Higher values can be expected in females during menses. Performed By: #### L AB103, LAB17 ####Recycling Coordinator: DOMENICA JARA ([id number])[facility] ([facility])[address] [place] [address] Magnesium [Mass/Vol]on 03-20 Interpretation and review of laboratory results Normal [facility] Higher values can be expected in females during menses. [facility] No Panel Informationon 03-20 [facility] Interpretation and review of laboratory results Abnormal [facility] Nursing Noteon 03-20-2025 Nursing Note Normal [facility] PROTHROMBIN TIMEon INR Coag (PPP) [Relative time] 1.9 {INR} High 0.9-1.1 [facility] Comment on above: Result Comment: Vaughn [...] Myocardial Infarction Performed By: #### L AB320, [id number] ####Recycling Coordinator: DOMENICA JARA ([phone])[facility] ([facility])[address] [place] [address] PT Coag (PPP) [Time] 19.1 s High 9.0-12.0 [facility] Comment on above: Performed By: #### L AB320, [id number] ####Recycling Coordinator: DOMENICA JARA ([id number])[facility] ([facility])[address] [place] [address] PT Coag (Bld) [Time]on 03-20 INR Coag (PPP) [Relative time] 1.9 {INR} High 0.9 - 1.1 [facility] Comment on above: Recommended Anticoag ulant Therapy: [...] Infarction Progress Noteon 03-20-2025 Progress Note Normal [facility] Progress Note Normal [facility] Progress Note Normal [facility] aPTT Coag (Bld) [Time]on aPTT Coag (PPP) [Time] 68.9 s High 20.0 - 30.5 s [facility] Interpretation and review of laboratory results Abnormal [facility] NOTE: The therapeutic time for Heparin anticoagulation, based on Xa activity inhibition, is an APTT of 46-80 seconds. [facility] aPTT Coag (PPP) [Time] 61.5 s High 20.0 - 30.5 s [facility] Interpretation and review of laboratory results Abnormal [facility] NOTE: The therapeutic time for Heparin anticoagulation, based on Xa activity inhibition, is an APTT of 46-80 seconds. [facility] aPTT Coag (PPP) [Time] 44.1 s High 20.0 - 30.5 s [facility] NOTE: The therapeutic time for Heparin anticoagulation, based on Xa activity inhibition, is an APTT of 46-80 seconds. [facility] 30on 03-19-2025 30 Normal [facility] 30 Normal [facility] [id number] 03-19-2025 [id number] Normal [facility] APTTon 03-19-2025 aPTT Coag (Bld) [Time] 47.3 s High 20.0-30.5 [facility] Comment on above: Result Comment: ARPAN Kaplan COMMENTS:NOTE: The therapeutic time for Heparin anticoagulation, based on Xa activity inhibition, is an APTT of 46-80 seconds. Performed By: #### L AB325 ####Recycling Coordinator: DOMENICA JARA ([id number])[address] aPTT Coag (Bld) [Time] 46.4 s High 20.0-30.5 [facility] Comment on above: Result Comment: ARPAN Kaplan COMMENTS:NOTE: The therapeutic time for Heparin anticoagulation, based on Xa activity inhibition, is an APTT of 46-80 seconds. Performed By: #### L AB320, [id number] ####Recycling Coordinator: DOMENICA JARA ([id number])[address] CBC (HEMOGRAM)on 03-19-2025 Erythrocyte distribution width (RBC) [Ratio] 20.8 % High 11.5-15.0 [facility] Comment on above: Performed By: #### L AB294 ####Recycling Coordinator: DOMENICA JARA ([id number])[facility])[address] [place] [address] Hematocrit (Bld) [Volume fraction] 30.4 % Low 40.0-52.0 [facility] Comment on above: Performed By: #### L AB294 ####Recycling Coordinator: DOMENICA JARA ([phone])[facility])[address] [place] [address] Hemoglobin (Bld) [Mass/Vol] 8.9 g/dL Low 13.0-18.0 [facility] Comment on above: Performed By: #### L AB294 ####Recycling Coordinator: DOMENICA JARA ([id number])[facility])[address] [place] [address] MCH (RBC) [Entitic mass] 29.9 pg Normal 26.0-34.0 [facility] Comment on above: Performed By: #### L AB294 ####Recycling Coordinator: DOMENICA JARA ([id number])[facility])[address] [place] [address] MCHC 29.3 % Low 30.5-36.0 [facility] Comment on above: Performed By: #### L AB294 ####Recycling Coordinator: DOMENICA JARA ([id number])[facility])[address] [place] [address] MCV (RBC) [Entitic vol] 102.0 fL High 77.0-99.0 [facility] Comment on above: Performed By: #### L AB294 ####Recycling Coordinator: DOMENICA JARA ([phone])[facility])[address] [place] [address] Platelet mean volume (Bld) [Entitic vol] 9.3 fL Normal 9.0-12.7 [facility] Comment on above: Performed By: #### L AB294 ####Recycling Coordinator: DOMENICA JARA ([id number])[facility])[address] [place] [address] Platelets (Bld) [#/Vol] 320 10*3/uL Normal 140-440 [facility] Comment on above: Performed By: #### L AB294 ####Recycling Coordinator: DOMENICA JARA ([id number])[facility])[address] [place] [address] [place] RBC (Bld) [#/Vol] 2.98 10*6/uL Low 4.40-5.90 [facility] Comment on above: Performed By: #### L AB294 ####Recycling Coordinator: DOMENICA JARA ([phone])[facility] ([facility])[address] [place] [address] WBC (Bld) [#/Vol] 7.8 10*3/uL Normal 3.6-10.7 [facility] Comment on above: Performed By: #### L AB294 ####Recycling Coordinator: DOMENICA JARA ([id number])[facility] ([facility])[address] [place] [address] CBC panel Auto (Bld)Ordered By: Liseth Granado on 03-19-2025 Erythrocyte distribution width (RBC) [Ratio] 20.8 % High 11.5 - 15.0 % [facility] Hematocrit (Bld) [Volume fraction] 30.4 % Low 40.0 - 52.0 % [facility] Hemoglobin (Bld) [Mass/Vol] 8.9 g/dL Low 13.0 - 18.0 g/dL [facility] Interpretation and review of laboratory results Abnormal [facility] MCH (RBC) [Entitic mass] 29.9 pg 26. 0 - 34.0 pg [facility] MCHC (RBC) [Mass/Vol] 29.3 % Low 30.5 - 36.0 % [facility] MCV (RBC) [Entitic vol] 102 fL High 77.0 - 99.0 fL [facility] Platelet mean volume (Bld) [Entitic vol] 9.3 fL 9.0 - 12.7 fL [facility] Platelets (Bld) [#/Vol] 320 10*3/uL 140 - 440 10*3/uL [facility] RBC (Bld) [#/Vol] 2.98 10*6/uL Low 4.40 - 5.9 0 10*6/uL [facility] WBC (Bld) [#/Vol] 7.8 10*3/uL 3.6 - 10.7 10*3/uL [facility] COMPREHENSIVE METABOLIC PANE Victor M 03-19-2025 Albumin [Mass/Vol] 2.0 g/dL Low 3.5-5.0 [facility] Comment on above: Performed By: #### L AB17, [id number] ####Recycling Coordinator: DOMENICA JARA ([id number])[facility] ([facility])[address] [place] [address] ALP [Catalytic activity/Vol] 221 U/L High 40-150 [facility] Comment on above: Performed By: #### L AB17, [id number] ####Recycling Coordinator: DOMENICA JARA ([id number])[facility] ([facility])[address] [place] [address] ALT [Catalytic activity/Vol] 14 U/L Normal <40 [facility] Comment on above: Performed By: #### L AB17, [id number] ####Recycling Coordinator: DOMENICA JARA ([id number])[facility] ([facility])[address] [place] [address] Anion gap [Moles/Vol] 8 mmol/L Normal 3-13 [facility] Comment on above: Performed By: #### L AB17, [id number] ####Recycling Coordinator: DOMENICA JARA ([id number])[facility] ([facility])[address] [place] [address] AST [Catalytic activity/Vol] 52 U/L High <34 [facility] Comment on above: Performed By: #### L AB17, [id number] ####Recycling Coordinator: DOMENICA JARA ([id number])[facility])[address] [place] [address] Bilirubin [Mass/Vol] 0.9 mg/dL Normal <1.2 [facility] Comment on above: Performed By: #### L AB17, [id number] ####Recycling Coordinator: DOMENICA JARA ([id number])[facility])[address] [place] [address] Calcium [Mass/Vol] 9.0 mg/dL Normal 8.4-10.2 [facility] Comment on above: Performed By: #### L AB17, [id number] ####Recycling Coordinator: DOMENICA JARA ([id number])[facility])[address] [place] [address] Chloride [Moles/Vol] 102 mmol/L Normal 98-107 [facility] Comment on above: Performed By: #### L AB17, [id number] ####Recycling Coordinator: DOMENICA JARA ([id number])[facility] ([facility])[address] [place] [address] CO2 [Moles/Vol] 27 mmol/L Normal 22-29 [facility] Comment on above: Performed By: #### L AB17, [id number] ####Recycling Coordinator: DOMENICA JARA ([id number])[facility])[address] [place] [address] Creatinine [Mass/Vol] 3.67 mg/dL High 0.72-1.25 [facility] Comment on above: Performed By: #### L AB17, [id number] ####Recycling Coordinator: DOMENICA JARA ([id number])[facility] ([facility])[address] [place] [address] GLOMERULAR FILTRATION RATE ML/MIN/1.73 SQ M.PREDICTED 18.2 mL/min/1.73m*2 Low >60.0 [facility] Comment on above: Result Comment: Calc ulation based on the Chronic Kidney Disease Epidemiology Collaboration (CKD-EPI) equation refit without adjustment for race Performed By: #### L AB17, [id number] ####Recycling Coordinator: DOEMNICA JARA ([id number])[facility] ([facility])[address] [place] [address] Glucose [Mass/Vol] 85 mg/dL Normal 74-100 [facility] Comment on above: Performed By: #### L AB17, [id number] ####Recycling Coordinator: DOMENICA JARA ([phone])[facility])[address] [place] [address] Potassium [Moles/Vol] 4.0 mmol/L Normal 3.5-5.1 [facility] Comment on above: Result Comment: [facility] potassium values may be up to 0.5 mmol/L lower than serum values. Performed By: #### L AB17, [id number] ####Recycling Coordinator: DOMENICA JARA ([id number])[facility] ([facility])[address] [place] [address] Protein [Mass/Vol] 7.4 g/dL Normal 6.4-8.3 [facility] Comment on above: Performed By: #### L AB17, [id number] ####Recycling Coordinator: DOMENICA JARA ([id number])[facility] ([facility])[address] [place] [address] Sodium [Moles/Vol] 137 mmol/L Normal 136-145 [facility] Comment on above: Performed By: #### L AB17, [id number] ####Recycling Coordinator: DOMENICA JARA ([id number])[facility] ([facility])[address] [place] [address] Urea nitrogen [Mass/Vol] 24 mg/dL High 06-19 [facility] Comment on above: Performed By: #### L AB17, [id number] ####Recycling Coordinator: DOMENICA JARA ([id number])[facility] ([facility])[address] [place] [address] Comprehensive metabolic 1998 panelOrdered By: Rikki Caballero on 03-19-2025 Albumin [Mass/Vol] 2 g/dL Low 3.5 - 5.0 g/dL [facility] ALP [Catalytic activity/Vol] 221 U/L High 40 - 150 U/L [facility] ALT [Catalytic activity/Vol] 14 U/L NINF - 40 U/L [facility] Anion gap [Moles/Vol] 8 mmol/L 3 - 13 mmol/L [facility] AST [Catalytic activity/Vol] 52 U/L High NINF - 34 U/L [facility] Bilirubin [Mass/Vol] 0.9 mg/dL NINF - 1.2 mg/dL [facility] Calcium [Mass/Vol] 9 mg/dL 8.4 - 10. 2 mg/dL [facility] Chloride [Moles/Vol] 102 mmol/L 98 - 10 7 mmol/L [facility] CO2 [Moles/Vol] 27 mmol/L 22 - 29 mmol/L [facility] Creatinine [Mass/Vol] 3.67 mg/dL High 0.72 - 1.25 mg/dL [facility] GFR/1.73 sq M.predicted (S/P/Bld) [Vol rate/Area] 18.2 mL/min Low - PINF [facility] Comment on above: Calculation based on the Chronic Kidney Disease Epidemiology Collaboration (CKD-EPI) equation refit without adjustment for race Glucose [Mass/Vol] 85 mg/dL 74 - 100 mg/dL [facility] Interpretation and review of laboratory results Abnormal [facility] Potassium [Moles/Vol] 4 mmol/L 3.5 - 5.1 mmol/L [facility] Comment on above: Plasma potassium macey ues may be up to 0.5 mmol/L lower than serum values. Protein [Mass/Vol] 7.4 g/dL 6.4 - 8.3 g/dL [facility] Sodium [Moles/Vol] 137 mmol/L 136 - 145 mmol/L [facility] Urea nitrogen [Mass/Vol] 24 mg/dL High 9 - 23 mg/d L [facility] Laboratory - Chemistry and C hemistry - challengeon 03-19-2025 Magnesium [Mass/Vol] 1.9 mg/dL 1.6 - 2 .6 mg/dL [facility] Laboratory - Coagulationon 0 03-19-2025 PT Coag (Bld) [Time] 17 s High 9.0 - 12.0 s [facility] MAGNESIUMon 03-19-2025 Magnesium [Mass/Vol] 1.9 mg/dL Normal 1.6-2.6 [facility] Comment on above: Result Comment: ARPAN Kaplan COMMENTS:Higher values can be expected in females during menses. Performed By: #### L AB17, [id number] ####Recycling Coordinator: DOMENICA JARA ([phone])[facility] ([address] Magnesium [Mass/Vol]on 03-19 Interpretation and review of laboratory results Normal [facility] Higher values can be expected in females during menses. [facility] No Panel Informationon 03-19 Interpretation and review of laboratory results Abnormal [facility] Nursing Noteon 03-19-2025 Nursing Note Wound vac suction failing-pt requesting wound vac removed for now. Black foam dressing removed and wound packed with saline-soaked gauze covered with DSD Normal [facility] Nursing Note Pt adamantly refusing telemetry at this time, ripped off monitor and threw to the floor Normal [facility] PROTHROMBIN TIMEon INR Coag (PPP) [Relative time] 1.6 {INR} High 0.9-1.1 [facility] Comment on above: Performed By: #### L AB320, [id number] ####Recycling Coordinator: DOMENICA JARA ([id number])[facility] ([facility])[address] [place] [address] PT Coag (PPP) [Time] 17.0 s High 9.0-12.0 [facility] Comment on above: Performed By: #### Tameka AB320, [id number] ####Recycling Coordinator: DOMENICA JARA ([id number])[facility])[address] [place] [address] PT Coag (Bld) [Time]on 03-19 INR Coag (PPP) [Relative time] 1.6 {INR} High 0.9 - 1.1 [facility] Progress Noteon 03-19-2025 Progress Note Normal [facility] Normal [facility] Progress Note Normal [facility] Progress Note Normal [facility] aPTT Coag (Bld) [Time]on aPTT Coag (PPP) [Time] 47.3 s High 20.0 - 30.5 s [facility] Interpretation and review of laboratory results Abnormal [facility] NOTE: The therapeutic time for Heparin anticoagulation, based on Xa activity inhibition, is an APTT of 46-80 seconds. [facility] aPTT Coag (PPP) [Time] 46.4 s High 20.0 - 30.5 s [facility] NOTE: The therapeutic time for Heparin anticoagulation, based on Xa activity inhibition, is an APTT of 46-80 seconds. [facility] APTTon 03-18-2025 aPTT Coag (Bld) [Time] 51.8 s High 20.0-30.5 [facility] Comment on above: Result Comment: ARPAN R COMMENTS:NOTE: The therapeutic time for Heparin anticoagulation, based on Xa activity inhibition, is an APTT of 46-80 seconds. Performed By: #### L AB325 ####Recycling Coordinator: DOMENICA JARA ([id number])[facility])[address] [place] [address] aPTT Coag (Bld) [Time] 47.6 s High 20.0-30.5 [facility] Comment on above: Result Comment: ARPAN Kaplan COMMENTS:NOTE: The therapeutic time for Heparin anticoagulation, based on Xa activity inhibition, is an APTT of 46-80 seconds. Performed By: #### L AB325 ####Recycling Coordinator: DOMENICA JARA ([phone])[facility])[address] [place] [address] aPTT Coag (Bld) [Time] 48.8 s High 20.0-30.5 [facility] Comment on above: Result Comment: ARPAN Kaplan COMMENTS:NOTE: The therapeutic time for Heparin anticoagulation, based on Xa activity inhibition, is an APTT of 46-80 seconds. Performed By: #### L AB325, [id number] ####Recycling Coordinator: DOMENICA JARA ([phone])[facility])[address] [place] [address] CBC (HEMOGRAM)on 03-18-2025 Erythrocyte distribution width (RBC) [Ratio] 20.6 % High 11.5-15.0 [facility] Comment on above: Performed By: #### L AB294 ####Recycling Coordinator: DOMENICA JARA ([id number])[facility])[address] [place] [address] Hematocrit (Bld) [Volume fraction] 30.4 % Low 40.0-52.0 [facility] Comment on above: Performed By: #### L AB294 ####Recycling Coordinator: DOMENICA JARA ([id number])[facility])[address] [place] [address] Hemoglobin (Bld) [Mass/Vol] 9.1 g/dL Low 13.0-18.0 [facility] Comment on above: Performed By: #### L AB294 ####Recycling Coordinator: DOMENICA AJRA ([id number])[facility] ([facility])[address] [place] [address] MCH (RBC) [Entitic mass] 30.0 pg Normal 26.0-34.0 [facility] Comment on above: Performed By: #### L AB294 ####Recycling Coordinator: DOMENICA JARA ([id number])[facility] ([facility])[address] [place] [address] MCHC 29.9 % Low 30.5-36.0 [facility] Comment on above: Performed By: #### L AB294 ####Recycling Coordinator: DOMENICA JARA ([id number])[facility] ([facility])[address] [place] [address] MCV (RBC) [Entitic vol] 100.3 fL High 77.0-99.0 [facility] Comment on above: Performed By: #### L AB294 ####Recycling Coordinator: DOMENICA JARA ([id number])[facility])[address] [place] [address] Platelet mean volume (Bld) [Entitic vol] 9.4 fL Normal 9.0-12.7 [facility] Comment on above: Performed By: #### L AB294 ####Recycling Coordinator: DOMENICA JARA ([id number])[facility] ([facility])[address] [place] [address] Platelets (Bld) [#/Vol] 333 10*3/uL Normal 140-440 [facility] Comment on above: Performed By: #### L AB294 ####Recycling Coordinator: DOMENICA JARA ([phone])[facility])[address] [place] [address] RBC (Bld) [#/Vol] 3.03 10*6/uL Low 4.40-5.90 [facility] Comment on above: Performed By: #### L AB294 ####Recycling Coordinator: DOMENICA JARA ([id number])[facility] ([facility])[address] [place] [address] WBC (Bld) [#/Vol] 7.6 10*3/uL Normal 3.6-10.7 [facility] Comment on above: Performed By: #### L AB294 ####Recycling Coordinator: DOMENICA JARA ([id number])[facility])[address] [place] [address] CBC panel Auto (Bld)Ordered By: Haley Vitale on 03-18-2025 Erythrocyte distribution width (RBC) [Ratio] 20.6 % High 11.5 - 15.0 % [facility] Hematocrit (Bld) [Volume fraction] 30.4 % Low 40.0 - 52.0 % [facility] Hemoglobin (Bld) [Mass/Vol] 9.1 g/dL Low 13.0 - 18.0 g/dL [facility] Interpretation and review of laboratory results Abnormal [facility] MCH (RBC) [Entitic mass] 30 pg 26. 0 - 34.0 pg [facility] MCHC (RBC) [Mass/Vol] 29.9 % Low 30.5 - 36.0 % [facility] MCV (RBC) [Entitic vol] 100.3 fL High 77.0 - 99.0 fL [facility] Platelet mean volume (Bld) [Entitic vol] 9.4 fL 9.0 - 12.7 fL [facility] Platelets (Bld) [#/Vol] 333 10*3/uL 140 - 440 10*3/uL [facility] RBC (Bld) [#/Vol] 3.03 10*6/uL Low 4.40 - 5.9 0 10*6/uL [facility] WBC (Bld) [#/Vol] 7.6 10*3/uL 3.6 - 10.7 10*3/uL [facility] COMPREHENSIVE METABOLIC PANE Victor M 03-18-2025 Albumin [Mass/Vol] 2.0 g/dL Low 3.5-5.0 [facility] Comment on above: Performed By: #### L AB103, LAB17 ####Recycling Coordinator: DOMENICA JARA ([phone])[facility] ([facility])[address] [place] [address] [place] ALP [Catalytic activity/Vol] 241 U/L High 40-150 [facility] Comment on above: Performed By: #### L AB103, LAB17 ####Recycling Coordinator: DOMENICA JARA ([id number])[facility] ([facility])[address] [place] [address] [place] ALT [Catalytic activity/Vol] 11 U/L Normal <40 [facility] Comment on above: Performed By: #### L AB103, LAB17 ####Recycling Coordinator: DOMENICA JARA ([id number])[facility] ([facility])[address] [place] [address] Anion gap [Moles/Vol] 10 mmol/L Normal 3-13 [facility] Comment on above: Performed By: #### L VARGHESE, LAB17 ####Recycling Coordinator: DOMENICA JARA ([id number])[facility] ([facility])[address] [place] [address] [place] AST [Catalytic activity/Vol] 50 U/L High <34 [facility] Comment on above: Performed By: #### L AB103, LAB17 ####Recycling Coordinator: DOMENICA JARA ([phone])[facility] ([facility])[address] [place] [address] Bilirubin [Mass/Vol] 0.8 mg/dL Normal <1.2 [facility] Comment on above: Performed By: #### L AB103, LAB17 ####Recycling Coordinator: DOMENICA JARA ([id number])[facility] ([facility])[address] [place] [address] [place] Calcium [Mass/Vol] 9.0 mg/dL Normal 8.4-10.2 [facility] Comment on above: Performed By: #### L AB103, LAB17 ####Recycling Coordinator: DOMENICA JARA ([id number])[facility] ([facility])[address] [place] [address] [place] Chloride [Moles/Vol] 100 mmol/L Normal 98-107 [facility] Comment on above: Performed By: #### L AB103, LAB17 ####Recycling Coordinator: DOMENICA JARA ([id number])[facility])[address] [place] [address] CO2 [Moles/Vol] 29 mmol/L Normal 22-29 [facility] Comment on above: Performed By: #### L 103, LAB17 ####Recycling Coordinator: DOMENICA JARA ([id number])[facility])[address] [place] [address] Creatinine [Mass/Vol] 2.64 mg/dL High 0.72-1.25 [facility] Comment on above: Performed By: #### L 103, LAB17 ####Recycling Coordinator: DOMENICA JARA ([phone])[facility])[address] [place] [address] [place] GLOMERULAR FILTRATION RATE ML/MIN/1.73 SQ M.PREDICTED 27.0 mL/min/1.73m*2 Low >60.0 [facility] Comment on above: Result Comment: Calc ulation based on the Chronic Kidney Disease Epidemiology Collaboration (CKD-EPI) equation refit without adjustment for race Performed By: #### L 103, LAB17 ####Recycling Coordinator: DOMENICA JARA ([id number])[facility] ([facility])[address] [place] [address] [place] Glucose [Mass/Vol] 73 mg/dL Low 74-100 [facility] Comment on above: Performed By: #### L AB103, LAB17 ####Recycling Coordinator: DOMENICA JARA ([id number])[facility])[address] [place] [address] [place] Potassium [Moles/Vol] 3.4 mmol/L Low 3.5-5.1 [facility] Comment on above: Result Comment: [facility] potassium values may be up to 0.5 mmol/L lower than serum values. Performed By: #### L AB103, LAB17 ####Recycling Coordinator: DOMENICA [id number])[facility] [place] [address] Protein [Mass/Vol] 7.3 g/dL Normal 6.4-8.3 [facility] Comment on above: Performed By: #### L AB103, LAB17 ####Recycling Coordinator: DOMENICA JARA ([id number])[facility] ([facility])[address] [place] [address] Sodium [Moles/Vol] 139 mmol/L Normal 136-145 [facility] Comment on above: Performed By: #### L AB103, LAB17 ####Recycling Coordinator: DOMENICA JARA ([phone])[facility])[address] [place] [address] Urea nitrogen [Mass/Vol] 16 mg/dL Normal 9-23 [facility] Comment on above: Performed By: #### L AB103, LAB17 ####Recycling Coordinator: DOMENICA JARA ([phone])[facility] ([facility])[address] [place] [address] Comprehensive metabolic 1998 panelon 03-18-2025 Albumin [Mass/Vol] 2 g/dL Low 3.5 - 5.0 g/dL [facility] ALP [Catalytic activity/Vol] 241 U/L High 40 - 150 U/L [facility] ALT [Catalytic activity/Vol] 11 U/L NINF - 40 U/L [facility] Anion gap [Moles/Vol] 10 mmol/L 3 - 13 mmol/L [facility] AST [Catalytic activity/Vol] 50 U/L High NINF - 34 U/L [facility] Bilirubin [Mass/Vol] 0.8 mg/dL NINF - 1.2 mg/dL [facility] Calcium [Mass/Vol] 9 mg/dL 8.4 - 10. 2 mg/dL [facility] Chloride [Moles/Vol] 100 mmol/L 98 - 10 7 mmol/L [facility] CO2 [Moles/Vol] 29 mmol/L 22 - 29 mmol/L [facility] Creatinine [Mass/Vol] 2.64 mg/dL High 0.72 - 1.25 mg/dL [facility] GFR/1.73 sq M.predicted (S/P/Bld) [Vol rate/Area] 27 mL/min Low - PINF [facility] Comment on above: Calculation based on the Chronic Kidney Disease Epidemiology Collaboration (CKD-EPI) equation refit without adjustment for race Glucose [Mass/Vol] 73 mg/dL Low 74 - 100 mg/dL [facility] Interpretation and review of laboratory results Abnormal [facility] Potassium [Moles/Vol] 3.4 mmol/L Low 3.5 - 5.1 mmol/L [facility] Comment on above: Plasma potassium macey ues may be up to 0.5 mmol/L lower than serum values. Protein [Mass/Vol] 7.3 g/dL 6.4 - 8.3 g/dL [facility] Sodium [Moles/Vol] 139 mmol/L 136 - 145 mmol/L [facility] Urea nitrogen [Mass/Vol] 16 mg/dL 9 - 23 mg/d L [facility] Laboratory - Chemistry and C hemistry - challengeon 03-18-2025 Magnesium [Mass/Vol] 1.9 mg/dL 1.6 - 2 .6 mg/dL [facility] Laboratory - Coagulationon 0 03-18-2025 PT Coag (Bld) [Time] 15.2 s High 9.0 - 12.0 s [facility] MAGNESIUMon 03-18-2025 Magnesium [Mass/Vol] 1.9 mg/dL Normal 1.6-2.6 [facility] Comment on above: Result Comment: ARPAN Kaplan COMMENTS:Higher values can be expected in females during menses. Performed By: #### L AB103, LAB17 ####Recycling Coordinator: DOMENICA JARA ([id number])[address] Magnesium [Mass/Vol]on 03-18 Interpretation and review of laboratory results Normal [facility] Higher values can be expected in females during menses. [facility] No Panel Informationon 03-18 [facility] Interpretation and review of laboratory results Abnormal [facility] PROTHROMBIN TIMEon INR Coag (PPP) [Relative time] 1.5 {INR} High 0.9-1.1 [facility] Comment on above: Result Comment: Vaughn [...] Myocardial Infarction Performed By: #### Tameka AB325, [id number] ####Recycling Coordinator: DOMENICA JARA ([id number])[facility])[address] [place] [address] PT Coag (PPP) [Time] 15.2 s High 9.0-12.0 [facility] Comment on above: Performed By: #### Tameka AB325, [id number] ####Recycling Coordinator: DOMENICA JARA ([phone])[address] PT Coag (Bld) [Time]on 03-18 INR Coag (PPP) [Relative time] 1.5 {INR} High 0.9 - 1.1 [facility] Comment on above: Recommended Anticoag ulant Therapy: [...] Infarction Progress Noteon 03-18-2025 Progress Note Normal [facility] Progress Note Normal [facility] Progress Note Normal [facility] Coag (Bld) [Time]on aPTT Coag (PPP) [Time] 51.8 s High 20.0 - 30.5 s [facility] Interpretation and review of laboratory results Abnormal [facility] NOTE: The therapeutic time for Heparin anticoagulation, based on Xa activity inhibition, is an APTT of 46-80 seconds. [facility] aPTT Coag (PPP) [Time] 47.6 s High 20.0 - 30.5 s [facility] Interpretation and review of laboratory results Abnormal [facility] NOTE: The therapeutic time for Heparin anticoagulation, based on Xa activity inhibition, is an APTT of 46-80 seconds. [facility] aPTT Coag (PPP) [Time] 48.8 s High 20.0 - 30.5 s [facility] NOTE: The therapeutic time for Heparin anticoagulation, based on Xa activity inhibition, is an APTT of 46-80 seconds. [facility] 30on 03-17-2025 30 Normal [facility] APTTon 03-17-2025 aPTT Coag (Bld) [Time] 44.1 s High 20.0-30.5 [facility] Comment on above: Result Comment: ARPAN Kaplan COMMENTS:NOTE: The therapeutic time for Heparin anticoagulation, based on Xa activity inhibition, is an APTT of 46-80 seconds. Performed By: #### L AB325 ####Recycling Coordinator: DOMENICA JARA ([phone])[address] aPTT Coag (Bld) [Time] 29.1 s Normal 20.0-30.5 [facility] Comment on above: Result Comment: ARPAN Kaplan COMMENTS:NOTE: The therapeutic time for Heparin anticoagulation, based on Xa activity inhibition, is an APTT of 46-80 seconds. Performed By: #### L AB325 ####Recycling Coordinator: DOMENICA JARA ([id number])[address] CBC (HEMOGRAM)on 03-17-2025 Erythrocyte distribution width (RBC) [Ratio] 21.2 % High 11.5-15.0 [facility] Comment on above: Performed By: #### L AB294 ####Recycling Coordinator: DOMENICA JARA ([id number])[address] Hematocrit (Bld) [Volume fraction] 33.8 % Low 40.0-52.0 [facility] Comment on above: Performed By: #### L AB294 ####Recycling Coordinator: DOMENICA JARA ([id number])[facility] ([facility])[address] [place] [address] Hemoglobin (Bld) [Mass/Vol] 10.0 g/dL Low 13.0-18.0 [facility] Comment on above: Performed By: #### L AB294 ####Recycling Coordinator: DOMENICA JARA ([id number])[facility] ([facility])[address] [place] [address] MCH (RBC) [Entitic mass] 30.2 pg Normal 26.0-34.0 [facility] Comment on above: Performed By: #### L AB294 ####Recycling Coordinator: DOMENICA JARA ([phone])[facility])[address] [place] [address] MCHC 29.6 % Low 30.5-36.0 [facility] Comment on above: Performed By: #### L AB294 ####Recycling Coordinator: DOMENICA JARA ([id number])[facility] ([facility])[address] [place] [address] MCV (RBC) [Entitic vol] 102.1 fL High 77.0-99.0 [facility] Comment on above: Performed By: #### L AB294 ####Recycling Coordinator: DOMENICA JARA ([id number])[facility])[address] [place] [address] Platelet mean volume (Bld) [Entitic vol] 9.2 fL Normal 9.0-12.7 [facility] Comment on above: Performed By: #### L AB294 ####Recycling Coordinator: DOMENICA JARA ([phone])[facility])[address] [place] [address] Platelets (Bld) [#/Vol] 407 10*3/uL Normal 140-440 [facility] Comment on above: Performed By: #### L AB294 ####Recycling Coordinator: DOMENICA JARA ([id number])[facility])[address] [place] [address] RBC (Bld) [#/Vol] 3.31 10*6/uL Low 4.40-5.90 [facility] Comment on above: Performed By: #### L AB294 ####Recycling Coordinator: DOMENICA JARA ([phone])[facility] ([facility])[address] [place] [address] WBC (Bld) [#/Vol] 6.7 10*3/uL Normal 3.6-10.7 [facility] Comment on above: Performed By: #### L AB294 ####Recycling Coordinator: DOMENICA JARA ([id number])[facility] ([facility])[address] [place] [address] CBC panel Auto (Bld)Ordered By: Giancarlo Lakhani on 03-17-2025 Erythrocyte distribution width (RBC) [Ratio] 21.2 % High 11.5 - 15.0 % [facility] Hematocrit (Bld) [Volume fraction] 33.8 % Low 40.0 - 52.0 % [facility] Hemoglobin (Bld) [Mass/Vol] 10 g/dL Low 13.0 - 18.0 g/dL [facility] Interpretation and review of laboratory results Abnormal [facility] MCH (RBC) [Entitic mass] 30.2 pg 26. 0 - 34.0 pg [facility] MCHC (RBC) [Mass/Vol] 29.6 % Low 30.5 - 36.0 % [facility] MCV (RBC) [Entitic vol] 102.1 fL High 77.0 - 99.0 fL [facility] Platelet mean volume (Bld) [Entitic vol] 9.2 fL 9.0 - 12.7 fL [facility] Platelets (Bld) [#/Vol] 407 10*3/uL 140 - 440 10*3/uL [facility] RBC (Bld) [#/Vol] 3.31 10*6/uL Low 4.40 - 5.9 0 10*6/uL [facility] WBC (Bld) [#/Vol] 6.7 10*3/uL 3.6 - 10.7 10*3/uL [facility] COMPREHENSIVE METABOLIC PANE Victor M 03-17-2025 Albumin [Mass/Vol] 2.2 g/dL Low 3.5-5.0 [facility] Comment on above: Performed By: #### L AB17, [id number], [id number] ####Recycling Coordinator: DOMENICA JARA ([id number])[facility] ([facility])[address] [place] [address] ALP [Catalytic activity/Vol] 223 U/L High 40-150 [facility] Comment on above: Performed By: #### L AB17, [id number], RLE630 ####Recycling Coordinator: DOMENICA JARA ([id number])[facility] ([facility])[address] [place] [address] ALT [Catalytic activity/Vol] 15 U/L Normal <40 [facility] Comment on above: Performed By: #### L AB17, FPN117, QET882 ####Recycling Coordinator: DOMENICA JARA ([id number])[facility] ([facility])[address] [place] [address] Anion gap [Moles/Vol] 12 mmol/L Normal 3-13 [facility] Comment on above: Performed By: #### L AB17, [id number], [id number] ####Recycling Coordinator: DOMENICA JARA ([id number])[facility] ([facility])[address] [place] [address] AST [Catalytic activity/Vol] 54 U/L High <34 [facility] Comment on above: Performed By: #### L AB17, [id number], OOP127 ####Recycling Coordinator: DOMENICA JARA ([id number])[facility] ([facility])[address] [place] [address] Bilirubin [Mass/Vol] 0.9 mg/dL Normal <1.2 [facility] Comment on above: Performed By: #### L AB17, [id number], [id number] ####Recycling Coordinator: DOMENICA JARA ([phone])[facility])[address] [place] [address] Calcium [Mass/Vol] 9.6 mg/dL Normal 8.4-10.2 [facility] Comment on above: Performed By: #### L AB17, [id number], IHF877 ####Recycling Coordinator: DOMENICA JARA ([id number])[facility])[address] [place] [address] [place] Chloride [Moles/Vol] 104 mmol/L Normal 98-107 [facility] Comment on above: Performed By: #### L AB17, [id number], AIG456 ####Recycling Coordinator: DOMENICA JARA ([id number])[facility])[address] [place] [address] CO2 [Moles/Vol] 25 mmol/L Normal 22-29 [facility] Comment on above: Performed By: #### L AB17, FHA183, NUX229 ####Recycling Coordinator: DOMENICA JARA ([id number])[facility])[address] [place] [address] Creatinine [Mass/Vol] 3.25 mg/dL High 0.72-1.25 [facility] Comment on above: Performed By: #### L AB17, EOF607, GPH646 ####Recycling Coordinator: DOMENICA JARA ([phone])[facility])[address] [place] [address] GLOMERULAR FILTRATION RATE ML/MIN/1.73 SQ M.PREDICTED 21.1 mL/min/1.73m*2 Low >60.0 [facility] Comment on above: Result Comment: Calc ulation based on the Chronic Kidney Disease Epidemiology Collaboration (CKD-EPI) equation refit without adjustment for race Performed By: #### L AB17, TGY461, UOY033 ####Recycling Coordinator: DOMENICA JARA ([phone])[facility] ([facility])[address] [place] [address] [place] Glucose [Mass/Vol] 87 mg/dL Normal 74-100 [facility] Comment on above: Performed By: #### L AB17, GWG211, [id number] ####Recycling Coordinator: DOMENICA JARA ([id number])[facility])[address] [place] [address] [place] Potassium [Moles/Vol] 3.9 mmol/L Normal 3.5-5.1 [facility] Comment on above: Result Comment: [facility] potassium values may be up to 0.5 mmol/L lower than serum values. Performed By: #### L AB17, ZKX100, THS084 ####Recycling Coordinator: DOMENICA JARA ([id number])[facility])[address] [place] [address] Protein [Mass/Vol] 8.0 g/dL Normal 6.4-8.3 [facility] Comment on above: Performed By: #### L AB17, VGY141, RWJ482 ####Recycling Coordinator: DOMENICA JARA ([id number])[facility])[address] [place] [address] Sodium [Moles/Vol] 141 mmol/L Normal 136-145 [facility] Comment on above: Performed By: #### L AB17, ELP861, XMZ156 ####Recycling Coordinator: DOMENICA JARA ([id number])[facility] ([facility])[address] [place] [address] Urea nitrogen [Mass/Vol] 22 mg/dL Normal 9-23 [facility] Comment on above: Performed By: #### L AB17, SHZ058, FHM116 ####Recycling Coordinator: DOMENICA JARA ([phone])[facility])[address] [place] [address] Comprehensive metabolic 1998 panelon 03-17-2025 Albumin [Mass/Vol] 2.2 g/dL Low 3.5 - 5.0 g/dL [facility] ALP [Catalytic activity/Vol] 223 U/L High 40 - 150 U/L [facility] ALT [Catalytic activity/Vol] 15 U/L NINF - 40 U/L [facility] Anion gap [Moles/Vol] 12 mmol/L 3 - 13 mmol/L [facility] AST [Catalytic activity/Vol] 54 U/L High NINF - 34 U/L [facility] Bilirubin [Mass/Vol] 0.9 mg/dL NINF - 1.2 mg/dL [facility] Calcium [Mass/Vol] 9.6 mg/dL 8.4 - 10. 2 mg/dL [facility] Chloride [Moles/Vol] 104 mmol/L 98 - 10 7 mmol/L [facility] CO2 [Moles/Vol] 25 mmol/L 22 - 29 mmol/L [facility] Creatinine [Mass/Vol] 3.25 mg/dL High 0.72 - 1.25 mg/dL [facility] GFR/1.73 sq M.predicted (S/P/Bld) [Vol rate/Area] 21.1 mL/min Low - PINF [facility] Comment on above: Calculation based on the Chronic Kidney Disease Epidemiology Collaboration (CKD-EPI) equation refit without adjustment for race Glucose [Mass/Vol] 87 mg/dL 74 - 100 mg/dL [facility] Interpretation and review of laboratory results Abnormal [facility] Potassium [Moles/Vol] 3.9 mmol/L 3.5 - 5.1 mmol/L [facility] Comment on above: Plasma potassium macey ues may be up to 0.5 mmol/L lower than serum values. Protein [Mass/Vol] 8 g/dL 6.4 - 8.3 g/dL [facility] Sodium [Moles/Vol] 141 mmol/L 136 - 145 mmol/L [facility] Urea nitrogen [Mass/Vol] 22 mg/dL 9 - 23 mg/d L [facility] Laboratory - Chemistry and C hemistry - challengeon 03-17-2025 Magnesium [Mass/Vol] 2.2 mg/dL 1.6 - 2 .6 mg/dL [facility] Laboratory - Coagulationon 0 03-17-2025 PT Coag (Bld) [Time] 16 s High 9.0 - 12.0 s [facility] MAGNESIUMon 03-17-2025 Magnesium [Mass/Vol] 2.2 mg/dL Normal 1.6-2.6 [facility] Comment on above: Result Comment: ORDHuong R COMMENTS:Higher values can be expected in females during menses. Performed By: #### L AB17, [id number], [id number] ####Recycling Coordinator: DOMENICA JARA ([id number])[facility] ([facility])[address] [place] [address] Magnesium [Mass/Vol]on 03-17 Interpretation and review of laboratory results Normal [facility] Higher values can be expected in females during menses. [facility] NT PRO BNPon 03-17-2025 NT PRO BNP >11374 High <125 [facility] Comment on above: Performed By: #### L AB17, [id number], ATZ094 ####Recycling Coordinator: DOMENICA JARA ([id number])[facility] ([facility])[address] [place] [address] Natriuretic peptide B [Mass/ Vol]on 03-17-2025 Interpretation and review of laboratory results Abnormal [facility] Natriuretic peptide B (Bld) [Mass/Vol] pg/mL High NINF - 125 pg/mL [facility] No Panel Informationon 03-17 [facility] Nursing Noteon 03-17-2025 Nursing Note Normal [facility] PROTHROMBIN TIMEon INR Coag (PPP) [Relative time] 1.5 {INR} High 0.9-1.1 [facility] Comment on above: Result Comment: Vaughn [...] Myocardial Infarction Performed By: #### L AB320 ####Recycling Coordinator: DOMENICA JARA ([id number])[facility] ([facility])[address] [place] [address] PT Coag (PPP) [Time] 16.0 s High 9.0-12.0 [facility] Comment on above: Performed By: #### L AB320 ####Recycling Coordinator: DOMENICA JARA ([id number])[facility] ([facility])[address] [place] [address] PT Coag (Bld) [Time]on 03-17 INR Coag (PPP) [Relative time] 1.5 {INR} High 0.9 - 1.1 [facility] Comment on above: Recommended Anticoag ulant Therapy: [...] Interpretation and review of laboratory results Abnormal [facility] Progress Noteon 03-17-2025 Progress Note Normal [facility] Progress Note Normal [facility] Progress Note Normal [facility] aPTT Coag (Bld) [Time]on aPTT Coag (PPP) [Time] 44.1 s High 20.0 - 30.5 s [facility] Interpretation and review of laboratory results Abnormal [facility] NOTE: The therapeutic time for Heparin anticoagulation, based on Xa activity inhibition, is an APTT of 46-80 seconds. [facility] aPTT Coag (PPP) [Time] 29.1 s 20.0 - 30.5 s [facility] Interpretation and review of laboratory results Normal [facility] NOTE: The therapeutic time for Heparin anticoagulation, based on Xa activity inhibition, is an APTT of 46-80 seconds. [facility] 30on 03-16-2025 30 Normal [facility] 30 Normal [facility] CBC (HEMOGRAM)on 03-16-2025 Erythrocyte distribution width (RBC) [Ratio] 21.2 % High 11.5-15.0 [facility] Comment on above: Performed By: #### L AB294 ####Recycling Coordinator: DOMENICA JARA ([id number])[address] Hematocrit (Bld) [Volume fraction] 30.2 % Low 40.0-52.0 [facility] Comment on above: Performed By: #### L AB294 ####Recycling Coordinator: DOMENICA JARA ([id number])[address] Hemoglobin (Bld) [Mass/Vol] 9.1 g/dL Low 13.0-18.0 [facility] Comment on above: Performed By: #### L AB294 ####Recycling Coordinator: DOMENICA JARA ([phone])[facility])[address] [place] [address] MCH (RBC) [Entitic mass] 30.1 pg Normal 26.0-34.0 [facility] Comment on above: Performed By: #### L AB294 ####Recycling Coordinator: DOMENICA JARA ([phone])[facility])[address] [place] [address] MCHC 30.1 % Low 30.5-36.0 [facility] Comment on above: Performed By: #### L AB294 ####Recycling Coordinator: DOMENICA JARA ([id number])[facility])[address] [place] [address] MCV (RBC) [Entitic vol] 100.0 fL High 77.0-99.0 [facility] Comment on above: Performed By: #### L AB294 ####Recycling Coordinator: DOMENICA JARA ([phone])[facility])[address] [place] [address] Platelet mean volume (Bld) [Entitic vol] 9.0 fL Normal 9.0-12.7 [facility] Comment on above: Performed By: #### L AB294 ####Recycling Coordinator: DOMENICA JARA ([id number])[facility])[address] [place] [address] Platelets (Bld) [#/Vol] 372 10*3/uL Normal 140-440 [facility] Comment on above: Performed By: #### L AB294 ####Recycling Coordinator: DOMENICA JARA ([id number])[facility])[address] [place] [address] RBC (Bld) [#/Vol] 3.02 10*6/uL Low 4.40-5.90 [facility] Comment on above: Performed By: #### L AB294 ####Recycling Coordinator: DOMENICA JARA ([id number])[facility] ([facility])[address] [place] [address] WBC (Bld) [#/Vol] 7.0 10*3/uL Normal 3.6-10.7 [facility] Comment on above: Performed By: #### L AB294 ####Recycling Coordinator: DOMENICA JARA ([id number])[facility] ([facility])[address] [place] [address] CBC panel Auto (Bld)Ordered By: Callie Steele on 03-16-2025 Erythrocyte distribution width (RBC) [Ratio] 21.2 % High 11.5 - 15.0 % [facility] Hematocrit (Bld) [Volume fraction] 30.2 % Low 40.0 - 52.0 % [facility] Hemoglobin (Bld) [Mass/Vol] 9.1 g/dL Low 13.0 - 18.0 g/dL [facility] Interpretation and review of laboratory results Abnormal [facility] MCH (RBC) [Entitic mass] 30.1 pg 26. 0 - 34.0 pg [facility] MCHC (RBC) [Mass/Vol] 30.1 % Low 30.5 - 36.0 % [facility] MCV (RBC) [Entitic vol] 100 fL High 77.0 - 99.0 fL [facility] Platelet mean volume (Bld) [Entitic vol] 9 fL 9.0 - 12.7 fL [facility] Platelets (Bld) [#/Vol] 372 10*3/uL 140 - 440 10*3/uL [facility] RBC (Bld) [#/Vol] 3.02 10*6/uL Low 4.40 - 5.9 0 10*6/uL [facility] WBC (Bld) [#/Vol] 7 10*3/uL 3.6 - 10.7 10*3/uL [facility] COMPREHENSIVE METABOLIC PANE Victor M 03-16-2025 Albumin [Mass/Vol] 2.0 g/dL Low 3.5-5.0 [facility] Comment on above: Performed By: #### L AB17, [id number] ####Recycling Coordinator: DOMENICA JARA ([id number])[facility] ([facility])[address] [place] [address] [place] ALP [Catalytic activity/Vol] 194 U/L High 40-150 [facility] Comment on above: Performed By: #### L AB17, [id number] ####Recycling Coordinator: DOMENICA JARA ([id number])[facility])[address] [place] [address] [place] ALT [Catalytic activity/Vol] 13 U/L Normal <40 [facility] Comment on above: Performed By: #### L AB17, [id number] ####Recycling Coordinator: DOMENICA JARA ([id number])[facility] ([facility])[address] [place] [address] Anion gap [Moles/Vol] 9 mmol/L Normal 3-13 [facility] Comment on above: Performed By: #### L AB17, [id number] ####Recycling Coordinator: DOMENICA JARA ([phone])[facility] ([facility])[address] [place] [address] [place] AST [Catalytic activity/Vol] 47 U/L High <34 [facility] Comment on above: Performed By: #### L AB17, [id number] ####Recycling Coordinator: DOMENICA JARA ([id number])[facility] ([facility])[address] [place] [address] [place] Bilirubin [Mass/Vol] 0.9 mg/dL Normal <1.2 [facility] Comment on above: Performed By: #### L AB17, [id number] ####Recycling Coordinator: DOMENICA JARA ([id number])[facility] ([facility])[address] [place] [address] [place] Calcium [Mass/Vol] 9.1 mg/dL Normal 8.4-10.2 [facility] Comment on above: Performed By: #### L AB17, [id number] ####Recycling Coordinator: DOMENICA JARA ([phone])[facility] ([facility])[address] [place] [address] [place] Chloride [Moles/Vol] 104 mmol/L Normal 98-107 [facility] Comment on above: Performed By: #### L AB17, [id number] ####Recycling Coordinator: DOMENICA JARA ([id number])[facility])[address] [place] [address] CO2 [Moles/Vol] 26 mmol/L Normal 22-29 [facility] Comment on above: Performed By: #### L AB17, [id number] ####Recycling Coordinator: DOMENICA JARA ([phone])[facility])[address] [place] [address] Creatinine [Mass/Vol] 2.35 mg/dL High 0.72-1.25 [facility] Comment on above: Performed By: #### L AB17, [id number] ####Recycling Coordinator: DOMENICA JARA ([phone])[address] GLOMERULAR FILTRATION RATE ML/MIN/1.73 SQ M.PREDICTED 31.1 mL/min/1.73m*2 Low >60.0 [facility] Comment on above: Result Comment: Calc ulation based on the Chronic Kidney Disease Epidemiology Collaboration (CKD-EPI) equation refit without adjustment for race Performed By: #### L AB17, [id number] ####Recycling Coordinator: DOMENICA JARA ([phone])[facility] ([facility])[address] [place] [address] [place] Glucose [Mass/Vol] 83 mg/dL Normal 74-100 [facility] Comment on above: Performed By: #### L AB17, [id number] ####Recycling Coordinator: DOMENICA JARA ([phone])[facility])[address] [place] [address] [place] Potassium [Moles/Vol] 4.1 mmol/L Normal 3.5-5.1 [facility] Comment on above: Result Comment: [facility] potassium values may be up to 0.5 mmol/L lower than serum values. Performed By: #### L AB17, [id number] ####Recycling Coordinator: DOMENICA JARA ([phone])[facility])[address] [place] [address] Protein [Mass/Vol] 7.3 g/dL Normal 6.4-8.3 [facility] Comment on above: Performed By: #### L AB17, [id number] ####Recycling Coordinator: DOMENICA JARA ([phone])[facility] ([facility])[address] [place] [address] Sodium [Moles/Vol] 139 mmol/L Normal 136-145 [facility] Comment on above: Performed By: #### L AB17, [id number] ####Recycling Coordinator: DOMENICA JARA ([phone])[facility] ([facility])[address] [place] [address] Urea nitrogen [Mass/Vol] 18 mg/dL Normal 9-23 [facility] Comment on above: Performed By: #### L AB17, [id number] ####Recycling Coordinator: DOMENICA JARA ([id number])[facility] ([facility])[address] [place] [address] Comprehensive metabolic 1998 panelon 03-16-2025 Albumin [Mass/Vol] 2 g/dL Low 3.5 - 5.0 g/dL [facility] ALP [Catalytic activity/Vol] 194 U/L High 40 - 150 U/L [facility] ALT [Catalytic activity/Vol] 13 U/L NINF - 40 U/L [facility] Anion gap [Moles/Vol] 9 mmol/L 3 - 13 mmol/L [facility] AST [Catalytic activity/Vol] 47 U/L High NINF - 34 U/L [facility] Bilirubin [Mass/Vol] 0.9 mg/dL NINF - 1.2 mg/dL [facility] Calcium [Mass/Vol] 9.1 mg/dL 8.4 - 10. 2 mg/dL [facility] Chloride [Moles/Vol] 104 mmol/L 98 - 10 7 mmol/L [facility] CO2 [Moles/Vol] 26 mmol/L 22 - 29 mmol/L [facility] Creatinine [Mass/Vol] 2.35 mg/dL High 0.72 - 1.25 mg/dL [facility] GFR/1.73 sq M.predicted (S/P/Bld) [Vol rate/Area] 31.1 mL/min Low - PINF [facility] Comment on above: Calculation based on the Chronic Kidney Disease Epidemiology Collaboration (CKD-EPI) equation refit without adjustment for race Glucose [Mass/Vol] 83 mg/dL 74 - 100 mg/dL [facility] Interpretation and review of laboratory results Abnormal [facility] Potassium [Moles/Vol] 4.1 mmol/L 3.5 - 5.1 mmol/L [facility] Comment on above: Plasma potassium macey ues may be up to 0.5 mmol/L lower than serum values. Protein [Mass/Vol] 7.3 g/dL 6.4 - 8.3 g/dL [facility] Sodium [Moles/Vol] 139 mmol/L 136 - 145 mmol/L [facility] Urea nitrogen [Mass/Vol] 18 mg/dL 9 - 23 mg/d L [facility] Laboratory - Chemistry and C hemistry - challengeon 03-16-2025 Magnesium [Mass/Vol] 2 mg/dL 1.6 - 2 .6 mg/dL [facility] Laboratory - Coagulationon 0 03-16-2025 PT Coag (Bld) [Time] 17.3 s High 9.0 - 12.0 s [facility] MAGNESIUMon 03-16-2025 Magnesium [Mass/Vol] 2.0 mg/dL Normal 1.6-2.6 [facility] Comment on above: Result Comment: ARPAN Kaplan COMMENTS:Higher values can be expected in females during menses. Performed By: #### L AB17, [id number] ####Recycling Coordinator: DOMENICA JARA ([id number])[address] Magnesium [Mass/Vol]on 03-16 Interpretation and review of laboratory results Normal [facility] Higher values can be expected in females during menses. [facility] No Panel Informationon 03-16 [facility] PROTHROMBIN TIMEon INR Coag (PPP) [Relative time] 1.7 {INR} High 0.9-1.1 [facility] Comment on above: Result Comment: Vaughn [...] Myocardial Infarction Performed By: #### L AB320 ####Recycling Coordinator: DOMENICA JARA ([id number])[facility] ([facility])[address] [place] [address] PT Coag (PPP) [Time] 17.3 s High 9.0-12.0 [facility] Comment on above: Performed By: #### L AB320 ####Recycling Coordinator: DOMENICA JARA ([id number])[facility] ([employer])[address] [place] [address] PT Coag (Bld) [Time]on 03-16 INR Coag (PPP) [Relative time] 1.7 {INR} High 0.9 - 1.1 [facility] Comment on above: Recommended Anticoag ulant Therapy: [...] Interpretation and review of laboratory results Abnormal [facility] Progress Noteon 03-16-2025 Progress Note Normal [facility] Progress Note Normal [facility] Progress Note Normal [facility] Progress Note Normal [facility] Progress Note Normal [facility] 30on 03-15-2025 30 Normal [facility] 30 Normal [facility] [id number] 03-15-2025 [id number] Normal [facility] CBC (HEMOGRAM)on 03-15-2025 Erythrocyte distribution width (RBC) [Ratio] 21.3 % High 11.5-15.0 [facility] Comment on above: Performed By: #### L AB294 ####Recycling Coordinator: DOMENICA JARA ([id number])[facility])[address] [place] [address] Hematocrit (Bld) [Volume fraction] 30.1 % Low 40.0-52.0 [facility] Comment on above: Performed By: #### L AB294 ####Recycling Coordinator: DOMENICA JARA ([id number])[facility])[address] [place] [address] Hemoglobin (Bld) [Mass/Vol] 9.2 g/dL Low 13.0-18.0 [facility] Comment on above: Performed By: #### L AB294 ####Recycling Coordinator: DOMENICA JARA ([id number])[facility])[address] [place] [address] MCH (RBC) [Entitic mass] 30.5 pg Normal 26.0-34.0 [facility] Comment on above: Performed By: #### L AB294 ####Recycling Coordinator: DOMENICA JARA ([id number])[facility] ([facility])[address] [place] [address] MCHC 30.6 % Normal 30.5-36.0 [facility] Comment on above: Performed By: #### L AB294 ####Recycling Coordinator: DOMENICA JARA ([id number])[facility])[address] [place] [address] MCV (RBC) [Entitic vol] 99.7 fL High 77.0-99.0 [facility] Comment on above: Performed By: #### L AB294 ####Recycling Coordinator: DOMENICA JARA ([id number])[facility])[address] [place] [address] Platelet mean volume (Bld) [Entitic vol] 9.0 fL Normal 9.0-12.7 [facility] Comment on above: Performed By: #### L AB294 ####Recycling Coordinator: DOMENICA JARA ([id number])[facility])[address] [place] [address] Platelets (Bld) [#/Vol] 392 10*3/uL Normal 140-440 [facility] Comment on above: Performed By: #### L AB294 ####Recycling Coordinator: DOMENICA JARA ([phone])[address] RBC (Bld) [#/Vol] 3.02 10*6/uL Low 4.40-5.90 [facility] Comment on above: Performed By: #### L AB294 ####Recycling Coordinator: DOMENICA JARA ([id number])[address] WBC (Bld) [#/Vol] 6.7 10*3/uL Normal 3.6-10.7 [facility] Comment on above: Performed By: #### L AB294 ####Recycling Coordinator: DOMENICA JARA ([id number])[facility])[address] [place] [address] CBC panel Auto (Bld)on 03-15 Erythrocyte distribution width (RBC) [Ratio] 21.3 % High 11.5 - 15.0 % [facility] Hematocrit (Bld) [Volume fraction] 30.1 % Low 40.0 - 52.0 % [facility] Hemoglobin (Bld) [Mass/Vol] 9.2 g/dL Low 13.0 - 18.0 g/dL [facility] Interpretation and review of laboratory results Abnormal [facility] MCH (RBC) [Entitic mass] 30.5 pg 26. 0 - 34.0 pg [facility] MCHC (RBC) [Mass/Vol] 30.6 % 30.5 - 36.0 % [facility] MCV (RBC) [Entitic vol] 99.7 fL High 77.0 - 99.0 fL [facility] Platelet mean volume (Bld) [Entitic vol] 9 fL 9.0 - 12.7 fL [facility] Platelets (Bld) [#/Vol] 392 10*3/uL 140 - 440 10*3/uL [facility] RBC (Bld) [#/Vol] 3.02 10*6/uL Low 4.40 - 5.9 0 10*6/uL [facility] WBC (Bld) [#/Vol] 6.7 10*3/uL 3.6 - 10.7 10*3/uL [facility] COMPREHENSIVE METABOLIC PANE Victor M 03-15-2025 Albumin [Mass/Vol] 2.0 g/dL Low 3.5-5.0 [facility] Comment on above: Performed By: #### L AB103, LAB17 ####Recycling Coordinator: DOMENICA JARA ([id number])[facility] ([facility])[address] [place] [address] ALP [Catalytic activity/Vol] 201 U/L High 40-150 [facility] Comment on above: Performed By: #### Tameka KWONG, LAB17 ####Recycling Coordinator: DOMENICA JARA ([phone])[facility] ([facility])[address] [place] [address] ALT [Catalytic activity/Vol] 14 U/L Normal <40 [facility] Comment on above: Performed By: #### Tameka [id number], LAB17 ####Recycling Coordinator: DOMENICA JARA ([phone])[facility] ([facility])[address] [place] [address] Anion gap [Moles/Vol] 11 mmol/L Normal 3-13 [facility] Comment on above: Performed By: #### Tameka KWONG, LAB17 ####Recycling Coordinator: DOMENICA JARA ([id number])[facility] ([facility])[address] [place] [address] AST [Catalytic activity/Vol] 49 U/L High <34 [facility] Comment on above: Performed By: #### Tameka AB103, LAB17 ####Recycling Coordinator: DOMENICA JARA ([id number])[facility])[address] [place] [address] Bilirubin [Mass/Vol] 0.8 mg/dL Normal <1.2 [facility] Comment on above: Performed By: #### L AB103, LAB17 ####Recycling Coordinator: DOMENICA JARA ([phone])[facility] ([facility])[address] [place] [address] [place] Calcium [Mass/Vol] 9.2 mg/dL Normal 8.4-10.2 [facility] Comment on above: Performed By: #### L AB103, LAB17 ####Recycling Coordinator: DOMENICA JARA ([id number])[facility])[address] [place] [address] [place] Chloride [Moles/Vol] 100 mmol/L Normal 98-107 [facility] Comment on above: Performed By: #### L AB103, LAB17 ####Recycling Coordinator: DOMENICA JARA ([id number])[facility] ([facility])[address] [place] [address] CO2 [Moles/Vol] 28 mmol/L Normal 22-29 [facility] Comment on above: Performed By: #### Tameka KWONG, LAB17 ####Recycling Coordinator: DOMENICA JARA ([phone])[facility])[address] [place] [address] Creatinine [Mass/Vol] 3.13 mg/dL High 0.72-1.25 [facility] Comment on above: Performed By: #### L AB103, LAB17 ####Recycling Coordinator: DOMENICA JARA ([phone])[facility] ([facility])[address] [place] [address] [place] GLOMERULAR FILTRATION RATE ML/MIN/1.73 SQ M.PREDICTED 22.0 mL/min/1.73m*2 Low >60.0 [facility] Comment on above: Result Comment: Calc ulation based on the Chronic Kidney Disease Epidemiology Collaboration (CKD-EPI) equation refit without adjustment for race Performed By: #### L AB103, LAB17 ####Recycling Coordinator: DOMENICA JARA ([phone])[facility])[address] [place] [address] [place] Glucose [Mass/Vol] 91 mg/dL Normal 74-100 [facility] Comment on above: Performed By: #### L AB103, LAB17 ####Recycling Coordinator: DOMENICA JARA ([id number])[facility] ([facility])[address] [place] [address] Potassium [Moles/Vol] 4.5 mmol/L Normal 3.5-5.1 [facility] Comment on above: Result Comment: [facility] potassium values may be up to 0.5 mmol/L lower than serum values. Performed By: #### L AB103, LAB17 ####Recycling Coordinator: DOMENICA JARA ([phone])[facility] ([facility])[address] [place] [address] Protein [Mass/Vol] 7.6 g/dL Normal 6.4-8.3 [facility] Comment on above: Performed By: #### L AB103, LAB17 ####Recycling Coordinator: DOMENICA JARA ([phone])[facility] ([facility])[address] [place] [address] Sodium [Moles/Vol] 139 mmol/L Normal 136-145 [facility] Comment on above: Performed By: #### L AB103, LAB17 ####Recycling Coordinator: DOMENICA JARA ([id number])[facility])[address] [place] [address] Urea nitrogen [Mass/Vol] 30 mg/dL High 9-23 [facility] Comment on above: Performed By: #### L AB103, LAB17 ####Recycling Coordinator: DOMENICA JARA ([id number])[facility])[address] [place] [address] Comprehensive metabolic 1998 panelOrdered By: Jenni Romano on 03-15-2025 Albumin [Mass/Vol] 2 g/dL Low 3.5 - 5.0 g/dL [facility] ALP [Catalytic activity/Vol] 201 U/L High 40 - 150 U/L [facility] ALT [Catalytic activity/Vol] 14 U/L NINF - 40 U/L [facility] Anion gap [Moles/Vol] 11 mmol/L 3 - 13 mmol/L [facility] AST [Catalytic activity/Vol] 49 U/L High NINF - 34 U/L [facility] Bilirubin [Mass/Vol] 0.8 mg/dL NINF - 1.2 mg/dL [facility] Calcium [Mass/Vol] 9.2 mg/dL 8.4 - 10. 2 mg/dL [facility] Chloride [Moles/Vol] 100 mmol/L 98 - 10 7 mmol/L [facility] CO2 [Moles/Vol] 28 mmol/L 22 - 29 mmol/L [facility] Creatinine [Mass/Vol] 3.13 mg/dL High 0.72 - 1.25 mg/dL [facility] GFR/1.73 sq M.predicted (S/P/Bld) [Vol rate/Area] 22 mL/min Low - PINF [facility] Comment on above: Calculation based on the Chronic Kidney Disease Epidemiology Collaboration (CKD-EPI) equation refit without adjustment for race Glucose [Mass/Vol] 91 mg/dL 74 - 100 mg/dL [facility] Interpretation and review of laboratory results Abnormal [facility] Potassium [Moles/Vol] 4.5 mmol/L 3.5 - 5.1 mmol/L [facility] Comment on above: Plasma potassium macey ues may be up to 0.5 mmol/L lower than serum values. Protein [Mass/Vol] 7.6 g/dL 6.4 - 8.3 g/dL [facility] Sodium [Moles/Vol] 139 mmol/L 136 - 145 mmol/L [facility] Urea nitrogen [Mass/Vol] 30 mg/dL High 9 - 23 mg/d L [facility] Consulton 03-15-2025 Consult Normal [facility] Consult Normal [facility] FREE T4on 03-15-2025 Free T4 [Mass/Vol] 0.89 ng/dL Normal 0.70-1.48 [facility] Comment on above: Performed By: #### L AB127 ####Recycling Coordinator: DOMENICA JARA ([id number])[facility] ([address] Free T4 [Mass/Vol]on 025 Free T4 Dialysis [Mass/Vol] 0.89 ng/dL 0.70 - 1.48 ng/dL [facility] Interpretation and review of laboratory results Normal [facility] Laboratory - Chemistry and C hemistry - challengeon 03-15-2025 Magnesium [Mass/Vol] 2 mg/dL 1.6 - 2 .6 mg/dL [facility] Laboratory - Coagulationon 0 03-15-2025 PT Coag (Bld) [Time] 17.9 s High 9.0 - 12.0 s [facility] MAGNESIUMon 03-15-2025 Magnesium [Mass/Vol] 2.0 mg/dL Normal 1.6-2.6 [facility] Comment on above: Result Comment: ARPAN Kaplan COMMENTS:Higher values can be expected in females during menses. Performed By: #### L AB103, LAB17 ####Recycling Coordinator: DOMENICA JARA ([phone])[address] Magnesium [Mass/Vol]on 03-15 Interpretation and review of laboratory results Normal [facility] Higher values can be expected in females during menses. [facility] Nursing Noteon 03-15-2025 Nursing Note Normal [facility] Nursing Note Normal [facility] PROTHROMBIN TIMEon INR Coag (PPP) [Relative time] 1.7 {INR} High 0.9-1.1 [facility] Comment on above: Result Comment: Vaughn [...] Myocardial Infarction Performed By: #### L AB320 ####Recycling Coordinator: DOMENICA JARA ([phone])[facility])[address] [place] [address] PT Coag (PPP) [Time] 17.9 s High 9.0-12.0 [facility] Comment on above: Performed By: #### L AB320 ####Recycling Coordinator: DOMENICA JARA ([phone])[facility])[address] [place] [address] [facility] PT Coag (Bld) [Time]on 03-15 INR Coag (PPP) [Relative time] 1.7 {INR} High 0.9 - 1.1 [facility] Comment on above: Recommended Anticoag ulant Therapy: [...] Interpretation and review of laboratory results Abnormal [facility] Progress Noteon 03-15-2025 Progress [facility] Progress [facility] Normal [facility] Prothrombin Time w/INRon INR Normal [facility] Comment on above: Order Comment: 413.2 Result Comment: [facility] Performed By: #### L 300.3900 #### [facility] [address] [place], [place], [id number] PROTIME Normal 11.7-14.9 [facility] Comment on above: Order Comment: 413.2 Result Comment: [facility] Performed By: #### L 300.3900 #### [facility] [address] [place], [place], [address] [place] Lower extremity arteryOrd ered By: Sulaiman Mullen on 03-15-2025 Right arm BP 130 mmHg [facility] Work Phone: [place] Lower extremity arteryon 03-15-2025 [...] feet. CV CPACS 30on 03-14-2025 30 Normal [facility] [id number] 03-14-2025 [id number] Normal [facility] BASIC METABOLIC PANELon - Anion gap [Moles/Vol] 11 mmol/L Normal 3-13 [facility] Comment on above: Performed By: #### L AB15, [id number], LAB18 ####Recycling Coordinator: DOMENICA JARA ([phone])[address] Calcium [Mass/Vol] 10.1 mg/dL Normal 8.4-10.2 [facility] Comment on above: Performed By: #### L AB15, [id number], LAB18 ####Recycling Coordinator: DOMENICA JARA ([id number])[facility] ([facility])[address] [place] [address] Chloride [Moles/Vol] 102 mmol/L Normal 98-107 [facility] Comment on above: Performed By: #### L AB15, [id number], LAB18 ####Recycling Coordinator: DOMENICA JARA ([id number])[facility] ([facility])[address] [place] [address] CO2 [Moles/Vol] 28 mmol/L Normal 22-29 [facility] Comment on above: Performed By: #### L AB15, [id number], LAB18 ####Recycling Coordinator: DOMENICA JARA ([id number])[facility] ([facility])[address] [place] [address] Creatinine [Mass/Vol] 4.96 mg/dL High 0.72-1.25 [facility] Comment on above: Performed By: #### L AB15, [id number], LAB18 ####Recycling Coordinator: DOMENICA JARA ([phone])[facility])[address] [place] [address] GLOMERULAR FILTRATION RATE ML/MIN/1.73 SQ M.PREDICTED 12.7 mL/min/1.73m*2 Low >60.0 [facility] Comment on above: Result Comment: Calc ulation based on the Chronic Kidney Disease Epidemiology Collaboration (CKD-EPI) equation refit without adjustment for race Performed By: #### L AB15, [id number], LAB18 ####Recycling Coordinator: DOMENICA JARA ([id number])[facility] ([facility])[address] [place] [address] Glucose [Mass/Vol] 99 mg/dL Normal 74-100 [facility] Comment on above: Performed By: #### L AB15, [id number], LAB18 ####Recycling Coordinator: DOMENICA JARA ([phone])[facility])[address] [place] [address] Potassium [Moles/Vol] 5.2 mmol/L High 3.5-5.1 [facility] Comment on above: Result Comment: [facility] potassium values may be up to 0.5 mmol/L lower than serum values. Performed By: #### L AB15, [id number], LAB18 ####Recycling Coordinator: DOMENICA JARA ([phone])[facility] ([facility])[address] [place] [address] Sodium [Moles/Vol] 141 mmol/L Normal 136-145 [facility] Comment on above: Performed By: #### L AB15, [id number], LAB18 ####Recycling Coordinator: DOMENICA JARA ([id number])[facility] ([facility])[address] [place] [address] Urea nitrogen [Mass/Vol] 57 mg/dL High 9-23 [facility] Comment on above: Performed By: #### L AB15, [id number], LAB18 ####Recycling Coordinator: DOMENICA JARA ([id number])[facility])[address] [place] [address] Basic metabolic 1998 panelOr dered By: Brandy Ross on 03-14-2025 Anion gap [Moles/Vol] 11 mmol/L 3 - 13 mmol/L [facility] Calcium [Mass/Vol] 10.1 mg/dL 8.4 - 10. 2 mg/dL [facility] Chloride [Moles/Vol] 102 mmol/L 98 - 10 7 mmol/L [facility] CO2 [Moles/Vol] 28 mmol/L 22 - 29 mmol/L [facility] Creatinine [Mass/Vol] 4.96 mg/dL High 0.72 - 1.25 mg/dL [facility] GFR/1.73 sq M.predicted (S/P/Bld) [Vol rate/Area] 12.7 mL/min Low - PINF [facility] Comment on above: Calculation based on the Chronic Kidney Disease Epidemiology Collaboration (CKD-EPI) equation refit without adjustment for race Glucose [Mass/Vol] 99 mg/dL 74 - 100 mg/dL [facility] Interpretation and review of laboratory results Abnormal [facility] Potassium [Moles/Vol] 5.2 mmol/L High 3.5 - 5.1 mmol/L [facility] Comment on above: Plasma potassium macey ues may be up to 0.5 mmol/L lower than serum values. Sodium [Moles/Vol] 141 mmol/L 136 - 145 mmol/L [facility] Urea nitrogen [Mass/Vol] 57 mg/dL High 9 - 23 mg/d L [facility] Consulton 03-14-2025 Consult Normal [facility] Consult Normal [facility] Consult Normal [facility] Consult Normal [facility] ECG 12-LEADon 03-14-2025 ECG 12-LEAD IMPRESSION: Atrial flutter IVCD, consider RBBB Probable lateral infarct, age indeterminate Anteroseptal infarct, 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 Electronically Signed On 03-14-2025 15:38:49 EDT by Ryan Rangel [facility] LIPID PANELon 03-14-2025 Cholesterol [Mass/Vol] 159 mg/dL Normal <200 [facility] Comment on above: Performed By: #### L AB15, [id number], LAB18 ####Recycling Coordinator: DOMENICA JARA ([id number])[facility] ([facility])[address] [place] [address] Cholesterol in HDL [Mass/Vol] 30 mg/dL Low >=60 [facility] Comment on above: Performed By: #### L AB15, [id number], LAB18 ####Recycling Coordinator: DOMENICA JARA ([id number])[facility])[address] [place] [address] Cholesterol.total/Choles terol in HDL [Mass ratio] 5 {ratio} Normal [facility] Comment on above: Result Comment: Ref Range:< 3 Low Risk for CHD3-6 Mod Risk for CHD> 6 High Risk for CHD Performed By: #### Tameka AB15, [id number], LAB18 ####Recycling Coordinator: DOMENICA JARA ([id number])[facility] ([facility])[address] [place] [address] [place] LOW DENSITY LIPOPROTEIN 109 mg/dL High 0-<100 [facility] Comment on above: Performed By: #### L AB15, [id number], LAB18 ####Recycling Coordinator: DOMENICA JARA ([id number])[facility] ([facility])[address] [place] [address] [place] NON-HDL CHOLESTEROL, CALCULATED 129 Normal <130 [facility] Comment on above: Performed By: #### L AB15, [id number], LAB18 ####Recycling Coordinator: DOMENICA JARA ([id number])[facility])[address] [place] [address] Triglyceride [Mass/Vol] 98 mg/dL Normal <150 [facility] Comment on above: Performed By: #### L AB15, [id number], LAB18 ####Recycling Coordinator: DOMENICA JARA ([id number])[facility])[address] [place] [address] VERY LOW DENSITY LIPOPROTEIN, CALCULATED 20 mg/dL Normal <=[address] [facility] Comment on above: Performed By: #### L AB15, [id number], LAB18 ####Recycling Coordinator: DOMENICA JARA ([phone])[facility])[address] [place] [address] Laboratory - Chemistry and C hemistry - challengeon 03-14-2025 Magnesium [Mass/Vol] 2.2 mg/dL 1.6 - 2 .6 mg/dL [facility] Lipid 1996 panelon Cholesterol [Mass/Vol] 159 mg/dL NINF - 200 mg/dL [facility] Cholesterol in HDL [Mass/Vol] 30 mg/dL Low 60 - PINF mg/dL [facility] Cholesterol in LDL [Mass/Vol] 109 mg/dL High 0 - <100 [facility] Cholesterol.total/Choles terol in HDL [Mass ratio] 5 {ratio} [facility] Comment on above: Ref Range: < 3 Low Risk for CHD 3-6 Mod Risk for CHD > 6 High Risk for CHD Interpretation and review of laboratory results Abnormal [facility] NON-HDL CHOLESTEROL, CALCULATED 129 NINF - 130 [facility] Triglyceride [Mass/Vol] 98 mg/dL NINF - 150 mg/dL [facility] VERY LOW DENSITY LIPOPROTEIN, CALCULATED 20 mg/dL NINF - 30 mg/dL [facility] MAGNESIUMon 03-14-2025 Magnesium [Mass/Vol] 2.2 mg/dL Normal 1.6-2.6 [facility] Comment on above: Result Comment: ARPAN Kaplan COMMENTS:Higher values can be expected in females during menses. Performed By: #### L AB15, [id number], LAB18 ####Recycling Coordinator: DOMENICA JARA ([id number])[facility] ([facility])[address] [place] [address] Magnesium [Mass/Vol]on 03-14 Interpretation and review of laboratory results Normal [facility] Higher values can be expected in females during menses. [facility] No Panel InformationOrdered By: Ryan Magdaleno on 03-14-2025 P Tiona 0 degrees [facility] Work Phone: UT Interval 0 ms [employer] Work Phone: QRS Tiona 146 degrees [facility] Phone: QRSD Interval 127 ms [facility] Work Phone: QT Interval 397 ms [facility] Phone: QTC Interval 542 ms [facility] Work Phone: T Wave Tiona -57 degrees [employer] Phone: [employer] Phone: No Panel Informationon 03-14 Atrial flutter IVCD, consider RBBB Probable lateral infarct, age indeterminate Anteroseptal infarct, 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 Electronically Signed On 03-14-2025 15:38:49 EDT by Ryan Yeboah MD - 03/14/2025 IMPRESSION: Atrial flutter IVCD, consider RBBB Probable lateral infarct, age indeterminate Anteroseptal infarct, 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 Electronically Signed On 03-14-2025 15:38:49 EDT by Ryan Magdaleno [facility] Nursing Noteon 03-14-2025 Nursing Note Normal [facility] Progress Noteon 03-14-2025 Progress Note Normal [facility] Progress Note Normal [facility] Progress Note Normal [facility] Vital signsOrdered By: Ryan Magdaleno on 03-14-2025 Heart rate 112 /min bpm [facility] Phone: 30on 03-13-2025 30 Normal [facility] BLOOD GAS, VENOUSon 03-13-20 25 AMOUNT OF OXYGEN Normal [facility] Comment on above: Result Comment: ARPAN R COMMENTS:Assessment of oxygenation is best done with an arterial blood gas determination. Reference ranges for pO2, bicarbonate, and base excess are for mixed venous blood. Specimens drawn from a peripheral vein will often have higher values. Performed By: #### L AB79 ####Recycling Coordinator: FENG CONSTANTINO ([id number])[facility] [place] ([facility])[address] Base excess Calc (BldV) [Moles/Vol] 2.2 mmol/L Normal -3.0-3.0 [facility] Comment on above: Performed By: #### L AB79 ####Recycling Coordinator: FENG CONSTANTINO ([id number])[facility] [place] ([facility])[address] CO2 [Moles/Vol] 28.9 mmol/L Normal 23.0-30.0 [facility] Comment on above: Performed By: #### L AB79 ####Recycling Coordinator: FENG CONSTANTINO ([id number])[facility] ([facility])[address] [place] [address] HCO3 (Bld) [Moles/Vol] 27.5 mmol/L Normal 21.0-30.0 [facility] Comment on above: Performed By: #### L AB79 ####Recycling Coordinator: FENG CONSTANTINO ([id number])[facility] ([facility])[address] Hemoglobin (Bld) [Mass/Vol] 11.8 g/dL Low Screen only [facility] Comment on above: Performed By: #### L AB79 ####Recycling Coordinator: FENG CONSTANTINO ([id number])[facility] ([facility])[address] OXYGEN (MM HG) IN VENOUS BLOOD 33.5 mm Hg Normal [facility] Comment on above: Performed By: #### L AB79 ####Recycling Coordinator: FENG CONSTANTINO ([id number])[facility] ([facility])[address] OXYGEN SATURATION (%) IN VENOUS BLOOD 57.2 % Normal [facility] Comment on above: Performed By: #### L AB79 ####Recycling Coordinator: FENG CONSTANTINO ([id number])[facility] [place] ([facility])[address] PCO2, JOHNATHAN 45.6 mm Hg Normal 38.0-56.0 [facility] Comment on above: Performed By: #### L AB79 ####Recycling Coordinator: FENG CONSTANTINO ([id number])[facility] [place] ([facility])[address] PH VENOUS 7.398 Normal 7.320-7.420 [facility] Comment on above: Performed By: #### L AB79 ####Recycling Coordinator: FENG DOUGIE ([id number])[facility] [place] ([facility])[address] SOURCE OF OXYGEN Nasal Cannula (LPM) Normal [facility] Comment on above: Performed By: #### L AB79 ####Recycling Coordinator: FENG DOUGIE ([id number])[facility] [place] ([facility])[address] CBC W Auto Differential pane l (Bld)Ordered By: Lakisha Paula on 03-13-2025 Basophils (Bld) [#/Vol] 0.1 10*3/uL 0.0 - 0.2 10*3/uL [facility] Basophils/100 WBC (Bld) 0.6 % 0.0 - 2.0 % [facility] Eosinophils (Bld) [#/Vol] 0.2 10*3/uL 0.0 - 0.5 10*3/uL [facility] Eosinophils/100 WBC (Bld) 2 % 0.0 - 6.0 % [facility] Erythrocyte distribution width (RBC) [Ratio] 21.2 % High 11.5 - 15.0 % [facility] Hematocrit (Bld) [Volume fraction] 28.4 % Low 40.0 - 52.0 % [facility] Hemoglobin (Bld) [Mass/Vol] 8.5 g/dL Low 13.0 - 18.0 g/dL [facility] Immature granulocytes (Bld) [#/Vol] 0 10*3/uL NINF - 0.1 10*3/uL [facility] Immature granulocytes/100 WBC (Bld) 0.5 % 0.0 - 2.0 % [facility] Interpretation and review of laboratory results Abnormal [facility] Lymphocytes (Bld) [#/Vol] 1.2 10*3/uL 1.0 - 4.3 10*3/uL [facility] Lymphocytes/100 WBC (Bld) 15.4 % 15.0 - 45.0 % [facility] MCH (RBC) [Entitic mass] 29.7 pg 26. 0 - 34.0 pg [facility] MCHC (RBC) [Mass/Vol] 29.9 % Low 30.5 - 36.0 % [facility] MCV (RBC) [Entitic vol] 99.3 fL High 77.0 - 99.0 fL [facility] Monocytes (Bld) [#/Vol] 1.4 10*3/uL High 0.0 - 0.9 10*3/uL [facility] Monocytes/100 WBC (Bld) 16.9 % High 5.0 - 13.0 % [facility] Neutrophils (Bld) [#/Vol] 5.2 10*3/uL 1.8 - 7.5 10*3/uL [facility] Neutrophils/100 WBC (Bld) 64.6 % 38.0 - 82.0 % [facility] Nucleated RBC/100 WBC (Bld) [Ratio] 0 % [facility] Platelet mean volume (Bld) [Entitic vol] 9.2 fL 9.0 - 12.7 fL [facility] Platelets (Bld) [#/Vol] 392 10*3/uL 140 - 440 10*3/uL [facility] RBC (Bld) [#/Vol] 2.86 10*6/uL Low 4.40 - 5.9 0 10*6/uL [facility] WBC (Bld) [#/Vol] 8 10*3/uL 3.6 - 10.7 10*3/uL [facility] CBC WITH AUTO DIFFERENTIALon 03-13-2025 Basophils (Bld) [#/Vol] 0.1 10*3/uL Normal 0.0-0.2 [facility] Comment on above: Performed By: #### L [id number] ####Recycling Coordinator: FENG CONSTANTINO ([id number])[facility] [place] ([facility])[address] Basophils/100 WBC (Bld) 0.6 % Normal 0.0-2.0 [facility] Comment on above: Performed By: #### L [id number] ####Recycling Coordinator: FENG CONSTANTINO ([id number])[facility] ([facility])[address] Eosinophils (Bld) [#/Vol] 0.2 10*3/uL Normal 0.0-0.5 [facility] Comment on above: Performed By: #### L [id number] ####Recycling Coordinator: FENG CONSTANTINO ([id number])[facility] ([facility])[address] Eosinophils/100 WBC (Bld) 2.0 % Normal 0.0-6.0 [facility] Comment on above: Performed By: #### L [id number] ####Recycling Coordinator: FENG CONSTANTINO ([id number])[facility] [place] ([facility])[address] [place] [address] Erythrocyte distribution width (RBC) [Ratio] 21.2 % High 11.5-15.0 [facility] Comment on above: Performed By: #### L [id number] ####Recycling Coordinator: FENG CONSTANTINO ([id number])[facility] ([facility])[address] [place] [address] Hematocrit (Bld) [Volume fraction] 28.4 % Low 40.0-52.0 [facility] Comment on above: Performed By: #### L [id number] ####Recycling Coordinator: FENG CONSTANTINO ([id number])[facility] [place] ([facility])[address] [place] [address] Hemoglobin (Bld) [Mass/Vol] 8.5 g/dL Low 13.0-18.0 [facility] Comment on above: Performed By: #### L [id number] ####Recycling Coordinator: FENG CONSTANTINO ([id number])[facility] [place] ([facility])[address] IMMATURE GRANS % 0.5 % Normal 0.0-2.0 [facility] Comment on above: Performed By: #### L [id number] ####Recycling Coordinator: FENG CONSTANTINO ([id number])[facility] ([facility])[address] IMMATURE GRANS ABSOLUTE 0.0 10*3/uL Normal <0.1 [facility] Comment on above: Performed By: #### L [id number] ####Recycling Coordinator: FENG CONSTANTINO ([id number])[facility] ([facility])[address] Lymphocytes (Bld) [#/Vol] 1.2 10*3/uL Normal 1.0-4.3 [facility] Comment on above: Performed By: #### L [id number] ####Recycling Coordinator: FENG CONSTANTINO ([id number])[facility] ([facility])[address] Lymphocytes/100 WBC (Bld) 15.4 % Normal 15.0-45.0 [facility] Comment on above: Performed By: #### L [id number] ####Recycling Coordinator: FENG CONSTANTINO ([id number])[facility] ([facility])[address] MCH (RBC) [Entitic mass] 29.7 pg Normal 26.0-34.0 [facility] Comment on above: Performed By: #### L [id number] ####Recycling Coordinator: FENG CONSTANTINO ([id number])[facility] ([facility])[address] MCHC 29.9 % Low 30.5-36.0 [facility] Comment on above: Performed By: #### L [id number] ####Recycling Coordinator: FENG CONSTANTINO ([id number])[facility] ([facility])[address] MCV (RBC) [Entitic vol] 99.3 fL High 77.0-99.0 [facility] Comment on above: Performed By: #### L [id number] ####Recycling Coordinator: FENG CONSTANTINO ([id number])[facility] ([facility])[address] Monocytes (Bld) [#/Vol] 1.4 10*3/uL High 0.0-0.9 [facility] Comment on above: Performed By: #### L [id number] ####Recycling Coordinator: FENG CONSTANTINO ([id number])[facility] [place] ([facility])[address] Monocytes/100 WBC (Bld) 16.9 % High 5.0-13.0 [facility] Comment on above: Performed By: #### L [id number] ####Recycling Coordinator: FENG CONSTANTINO ([id number])[facility] [place] ([facility])[address] NEUTROPHILS ABSOLUTE 5.2 10*3/uL Normal 1.8-7.5 [facility] Comment on above: Performed By: #### L [id number] ####Recycling Coordinator: FENG CONSTANTINO ([id number])[facility] [place] ([facility])[address] Neutrophils/100 WBC (Bld) 64.6 % Normal 38.0-82.0 [facility] Comment on above: Performed By: #### L [id number] ####Recycling Coordinator: FENG CONSTANTINO ([id number])[facility] [place] ([facility])[address] NRBC 0.0 /100 WBCs Normal 0.0-2.0 [facility] Comment on above: Performed By: #### L [id number] ####Recycling Coordinator: FENG CONSTANTINO ([id number])[facility] [place] ([facility])[address] Platelet mean volume (Bld) [Entitic vol] 9.2 fL Normal 9.0-12.7 [facility] Comment on above: Performed By: #### L [id number] ####Recycling Coordinator: FENG CONSTANTINO ([id number])[facility] [place] ([facility])[address] Platelets (Bld) [#/Vol] 392 10*3/uL Normal 140-440 [facility] Comment on above: Performed By: #### L [id number] ####Recycling Coordinator: FENG CONSTANTINO ([id number])[facility] [place] ([facility])[address] RBC (Bld) [#/Vol] 2.86 10*6/uL Low 4.40-5.90 [facility] Comment on above: Performed By: #### L [id number] ####Recycling Coordinator: FENG CONSTANTINO ([id number])[facility] [place] ([facility])[address] WBC (Bld) [#/Vol] 8.0 10*3/uL Normal 3.6-10.7 [facility] Comment on above: Performed By: #### L [id number] ####Recycling Coordinator: FENG CONSTANTINO ([phone])[facility] ([facility])[address] COMPREHENSIVE METABOLIC PANE Victor M 03-13-2025 Albumin [Mass/Vol] 1.5 g/dL Low 3.5-5.0 [facility] Comment on above: Performed By: #### L AB17 ####Recycling Coordinator: FENG CONSTANTINO ([id number])[facility] [place] ([facility])[address] ALP [Catalytic activity/Vol] 122 U/L Normal 40-150 [facility] Comment on above: Performed By: #### L AB17 ####Recycling Coordinator: FENG CONSTANTINO ([id number])[facility] [place] ([facility])[address] [place] [address] [place] ALT [Catalytic activity/Vol] 7 U/L Normal <40 [facility] Comment on above: Performed By: #### L AB17 ####Recycling Coordinator: FENG CONSTANTINO ([id number])[facility] ([facility])[address] Anion gap [Moles/Vol] 6 mmol/L Normal 3-13 [facility] Comment on above: Performed By: #### L AB17 ####Recycling Coordinator: FENG CONSTANTINO ([id number])[facility] [place] ([facility])[address] AST [Catalytic activity/Vol] 37 U/L High <34 [facility] Comment on above: Performed By: #### L AB17 ####Recycling Coordinator: FENG CONSTANTINO ([id number])[facility] [place] ([facility])[address] Bilirubin [Mass/Vol] 0.5 mg/dL Normal <1.2 [facility] Comment on above: Performed By: #### L AB17 ####Recycling Coordinator: FENG CONSTANTINO ([id number])[facility] [place] ([facility])[address] Calcium [Mass/Vol] 7.3 mg/dL Low 8.4-10.2 [facility] Comment on above: Performed By: #### L AB17 ####Recycling Coordinator: FENG CONSTANTINO ([phone])[facility] [place] ([facility])[address] [place] [address] [place] Chloride [Moles/Vol] 110 mmol/L High 98-107 [facility] Comment on above: Performed By: #### L AB17 ####Recycling Coordinator: FENG CONSTANTINO ([id number])[facility] [place] ([facility])[address] [place] [address] [place] CO2 [Moles/Vol] 25 mmol/L Normal 22-29 [facility] Comment on above: Performed By: #### L AB17 ####Recycling Coordinator: FENG CONSTANTINO ([id number])[facility] Creatinine [Mass/Vol] 3.32 mg/dL High 0.72-1.25 [facility] Comment on above: Performed By: #### L AB17 ####Recycling Coordinator: FENG CONSTANTINO ([id number])[facility] ([facility])[address] GLOMERULAR FILTRATION RATE ML/MIN/1.73 SQ M.PREDICTED 20.5 mL/min/1.73m*2 Low >60.0 [facility] Comment on above: Result Comment: Calc ulation based on the Chronic Kidney Disease Epidemiology Collaboration (CKD-EPI) equation refit without adjustment for race Performed By: #### L AB17 ####Recycling Coordinator: FENG CONSTANTINO ([id number])[facility] ([facility])[address] Glucose [Mass/Vol] 71 mg/dL Low 74-100 [facility] Comment on above: Performed By: #### L AB17 ####Recycling Coordinator: FENG CONSTANTINO ([id number])[facility] ([facility])[address] [place] [address] Potassium [Moles/Vol] 3.5 mmol/L Normal 3.5-5.1 [facility] Comment on above: Result Comment: [facility] potassium values may be up to 0.5 mmol/L lower than serum values. Performed By: #### L AB17 ####Recycling Coordinator: FENG CONSTANTINO ([id number])[facility] ([facility])[address] Protein [Mass/Vol] 5.5 g/dL Low 6.4-8.3 [facility] Comment on above: Performed By: #### L AB17 ####Recycling Coordinator: FENG CONSTANTINO ([id number])[facility] ([facility])[address] Sodium [Moles/Vol] 141 mmol/L Normal 136-145 [facility] Comment on above: Performed By: #### L AB17 ####Recycling Coordinator: FENG CONSTANTINO ([id number])[facility] ([facility])[address] Urea nitrogen [Mass/Vol] 41 mg/dL High 9-23 [facility] Comment on above: Performed By: #### L AB17 ####Recycling Coordinator: FENG CONSTANTINO ([id number])[facility] [place] ([facility])[address] CHEST WO IV CONTRASTon CT CHEST WO IV CONTRAST Normal [facility] CT Chest WO contraston 03-13 1. [...] MD Electronically Signed Date/Time: 03/13/2025 12:44 PM [facility] 1965 [id number] Exam Date/Time: 03/13/2025 11:06 Procedure: CT CHEST [...] 03/13/2025 Patient Name: [facility]UN SN[facility]DER [facility] 1965 [id number] Exam Date/Time: 03/13/2025 11:06 Procedure: CT CHEST [...] Electronically Signed Date/Time: 03/13/2025 12:44 PM EDT [facility] Radiology Study observation (narrative) [facility] Comprehensive Metabolic Prof ilon 03-13-2025 Bilirubin [Mass/Vol] 0.62 mg/dL Normal 0.00-1.30 [facility] Comment on above: Order Comment: 413.2 Performed By: #### L 500.4050, L100.0100, L300.3900 #### [facility] [address] [place], [place], [id number] Comprehensive metabolic 1998 panelon 03-13-2025 Albumin [Mass/Vol] 1.5 g/dL Low 3.5 - 5.0 g/dL [facility] ALP [Catalytic activity/Vol] 122 U/L 40 - 150 U/L [facility] ALT [Catalytic activity/Vol] 7 U/L NINF - 40 U/L [facility] Anion gap [Moles/Vol] 6 mmol/L 3 - 13 mmol/L [facility] AST [Catalytic activity/Vol] 37 U/L High [facility] 34 U/L [facility] Bilirubin [Mass/Vol] 0.5 mg/dL NINF - 1.2 mg/dL [facility] Calcium [Mass/Vol] 7.3 mg/dL Low 8.4 - 10. 2 mg/dL [facility] Chloride [Moles/Vol] 110 mmol/L High 98 - 10 7 mmol/L [facility] CO2 [Moles/Vol] 25 mmol/L 22 - 29 mmol/L [facility] Creatinine [Mass/Vol] 3.32 mg/dL High 0.72 - 1.25 mg/dL [facility] GFR/1.73 sq M.predicted (S/P/Bld) [Vol rate/Area] 20.5 mL/min Low - PINF [facility] Comment on above: Calculation based on the Chronic Kidney Disease Epidemiology Collaboration (CKD-EPI) equation refit without adjustment for race Glucose [Mass/Vol] 71 mg/dL Low 74 - 100 mg/dL [facility] Interpretation and review of laboratory results Abnormal [facility] Potassium [Moles/Vol] 3.5 mmol/L 3.5 - 5.1 mmol/L [facility] Comment on above: Plasma potassium macey ues may be up to 0.5 mmol/L lower than serum values. Protein [Mass/Vol] 5.5 g/dL Low 6.4 - 8.3 g/dL [facility] Sodium [Moles/Vol] 141 mmol/L 136 - 145 mmol/L [facility] Urea nitrogen [Mass/Vol] 41 mg/dL High 9 - 23 mg/d L [facility] ECG 12-LEADon 03-13-2025 ECG 12-LEAD Normal [facility] ED Nursing Noteon 03-13-2025 ED Nursing Note When this RN came back from lunch Pt was already taken to [facility] by Consuelo Day. RN covering my lunch called report to RN at [facility]. Normal [facility] ED Nursing Note Called report to SWEETIE Linder at . Normal [facility] ED Nursing Note Consuelo Johnson at bedside to transport patient to [facility]. Normal [facility] ED Provider Noteon ED Provider Note Normal [facility] HIGH SENSITIVITY TROPONIN, S ERIAL BASELINEon 03-13-2025 TROPONIN HS SERIAL BASELINE 39 ng/L High <=35 [facility] Comment on above: Result Comment: In i ndividuals presenting with symptoms > 2h, a baseline troponin <= 5 ng/L suggests acutecardiac injury is unlikely and further serial testing is generally not indicated. Performed By: #### L [id number] ####Recycling Coordinator: FENG CONSTANTINO ([id number])[facility] ([facility])[address] [place] [address] HIGH SENSITIVITY TROPONIN, S ERIAL, SECOND TESTon 03-13-2025 2H TROPONIN HS (SERIAL 2ND TROPONIN) 44 ng/L High <=35 [facility] Comment on above: Result Comment: 2h t roponin (2nd troponin) samples collected between 1h 40 min and 2h and 20 min of the baseline collection time can be utilized to interpret delta troponins as per [facility] algorithms. Samples collected outside this timeframe need to be interpreted clinically.Rising or falling troponin delta between 2 ??? 15 ng/L as compared to baseline value requires a 3rd serial troponin Performed By: #### L [id number], [id number], [id number] ####Recycling Coordinator: DOMENICA JARA ([id number])[facility] ([facility])[address] [place] [address] HIGH SENSITIVITY TROPONIN, S ERIAL, THIRD TESTon 03-13-2025 4H TROPONIN HS (SERIAL 3RD TROPONIN) 50 ng/L High <=35 [facility] Comment on above: Result Comment: 4h t roponin (3rd troponin) samples collected between 1h 40 min and 2h and 20 min of the 2h troponin collection time can be utilized to interpret delta troponins as per [facility] algorithms. Samples collected outside this timeframe need to be interpreted clinically.Rising or falling troponin delta between 2 ??? 15 ng/L as compared to 2h troponin valuerequires further evaluation. Performed By: #### L [id number] ####Recycling Coordinator: DOMENICA JARA ([id number])[facility] ([employer])[address] [place] [address] Laboratory - Chemistry and C hemistry - challengeon 03-13-2025 TSH Qn 6.88 m[IU]/L High [facility] Laboratory - Chemistry and C hemistry - challengeOrdered By: Miya Ang on 03-13-2025 Base excess Calc (BldV) [Moles/Vol] 2.2 mmol/L -3.0 - 3.0 mmol/L [facility] CO2 (BldV) [Partial pressure] 45.6 mm[Hg] [facility] CO2 [Moles/Vol] 28.9 mmol/L 23.0 - 30.0 mmol/L [facility] HCO3 (Bld) [Moles/Vol] 27.5 mmol/L 21.0 - 30.0 mmol/L [facility] Oxygen (BldV) [Partial pressure] 33.5 mm[Hg] mm Hg [facility] pH (BldV) 7.398 [pH] 7.320 - 7.420 [facility] Laboratory - Coagulationon 0 03-13-2025 PT Coag (Bld) [Time] 17.7 s High 9.0 - 12.0 s [facility] Laboratory - Hematology and Cell countsOrdered By: Miya Pereiraer on 03-13-2025 Hemoglobin (Bld) [Mass/Vol] 11.8 g/dL Low 13.5 - 17.5 g/dl [facility] Laboratory - Microbiology an d Antimicrobial susceptibilityon 03-13-2025 FLUAV RNA EMMANUEL+probe Ql (Resp) Not detected Not Detected [facility] FLUBV RNA EMMANUEL+probe Ql (Resp) Not detected Not Detected [facility] RSV RNA EMMANUEL+probe Ql (Resp) Not detected Not Detected [facility] SARS-CoV-2 (COVID-19) RNA EMMANUEL+probe Ql (Resp) Not detected Not Detected [facility] SARS-CoV-2 (COVID-19) RNA EMMANUEL+probe Ql (Unsp spec) Methodology: real-time, RT-PCR The SARS-CoV-2, Flu A/B, and RSV Combo assay is intended for in vitro diagnostic use under the FDA Emergency Use Authorization (EUA). This test has not been FDA cleared or approved. In compliance with this authorization, please visit www.fda.gov/media/ 2435/download or www.fda.gov/media/14 2436/download to access the applicable information sheets. [facility] NT PRO BNPon 03-13-2025 NT PRO BNP >92008 High <125 [facility] Comment on above: Performed By: #### L [id number], [id number], [id number] ####Recycling Coordinator: DOMENICA JARA ([id number])[address] Natriuretic peptide B [Mass/ Vol]on 03-13-2025 Interpretation and review of laboratory results Abnormal [facility] Natriuretic peptide B (Bld) [Mass/Vol] pg/mL High NINF - 125 pg/mL [facility] No Panel Informationon 03-13 4h Troponin HS (Serial 3rd Troponin) 50 ng/L High NINF - 35 ng/L [facility] Comment on above: 4h troponin (3rd tro ponin) samples collected between 1h 40 min and 2h and 20 min of the 2h troponin collection time can be utilized to interpret delta troponins as per [facility] algorithms. Samples collected outside this timeframe need to be interpreted clinically. Rising or falling troponin delta between 2 15 ng/L as compared to 2h troponin value requires further evaluation. Interpretation and review of laboratory results Abnormal [facility] 2h Troponin HS (Serial 2nd Troponin) 44 ng/L High NINF - 35 ng/L [facility] Comment on above: 2h troponin (2nd tro ponin) samples collected between 1h 40 min and 2h and 20 min of the baseline collection time can be utilized to interpret delta troponins as per [facility] algorithms. Samples collected outside this timeframe need to be interpreted clinically. Rising or falling troponin delta between 2 15 ng/L as compared to baseline value requires a 3rd serial troponin Interpretation and review of laboratory results Abnormal [facility] Interpretation and review of laboratory results Abnormal [facility] Troponin HS Serial Baseline 39 ng/L High NINF - 35 ng/L [facility] Comment on above: In individuals prese nting with symptoms > 2h, a baseline troponin <= 5 ng/L suggests acute cardiac injury is unlikely and further serial testing is generally not indicated. [facility] P Tiona 0 degrees [facility] UT Interval 0 ms [facility] QRS Tiona 66 degrees [facility] QRSD Interval 113 ms [facility] QT Interval 372 ms [facility] QTC Interval 520 ms [facility] T Wave Tiona 228 degrees [facility] Atrial flutter with predominant 2:1 AV block [...] On 03-13-2025 08:47:27 EDT by Keiry Solares [facility] No Panel InformationOrdered By: Miya Ang on 03-13-2025 Amount Of Oxygen [facility] Interpretation and review of laboratory results Abnormal [facility] Source Of Oxygen Nasal Cannula (LPM) [facility] Assessment of oxygenation is best done with an arterial blood gas determination. Reference ranges for pO2, bicarbonate, and base excess are for mixed venous blood. Specimens drawn from a peripheral vein will often have higher values. [facility] Nursing Noteon 03-13-2025 Nursing Note Removed wound vac that patient arrived to 5w from ecf pictures of all wound taken on rover and saved to chart NSWto DSD applied to sacral wound Normal [facility] PROTHROMBIN TIMEon INR Coag (PPP) [Relative time] 1.7 {INR} High 0.9-1.1 [facility] Comment on above: Result Comment: Vaughn [...] Myocardial Infarction Performed By: #### L [id number] ####Recycling Coordinator: FENG CONSTANTINO ([id number])[facility] ([facility])[address] [place] [address] PT Coag (PPP) [Time] 17.7 s High 9.0-12.0 [facility] Comment on above: Performed By: #### L [id number] ####Recycling Coordinator: FENG CONSTANTINO ([id number])[facility] ([facility])[address] [place] [address] PT Coag (Bld) [Time]on 03-13 INR Coag (PPP) [Relative time] 1.7 {INR} High 0.9 - 1.1 [facility] Comment on above: Recommended Anticoag ulant Therapy: [...] Interpretation and review of laboratory results Abnormal [facility] SARS-COV-2, FLU A/B, AND RSV COMBOon 03-13-2025 SARS-CoV-2 (COVID-19) RNA EMMANUEL+probe Ql (Unsp spec) Normal [facility] Comment on above: Performed By: #### L [id number] ####Recycling Coordinator: FENG CONSTANTINO ([id number])[facility] ([facility])[address] [place] [address] SARS-CoV-2, Flu A/B, and RSV Comboon 03-13-2025 Interpretation and review of laboratory results Normal [facility] THYROID STIMULATING HORMONEo n 03-13-2025 THYROID STIMULATING HORMONE 6.88 uIU/mL High 0.35-4.94 [facility] Comment on above: Performed By: #### L [id number], [id number], [id number] ####Recycling Coordinator: DOMENICA JARA ([id number])[facility] ([facility])[address] [place] [address] TSH Qnon 03-13-2025 Interpretation and review of laboratory results Abnormal [facility] Vital signsOrdered By: Delicia Ang on 03-13-2025 Oxygen saturation in Venous blood 57.2 % [facility] Vital signson 03-13-2025 Heart rate 117 /min bpm [facility] XR Chest Single viewon 03-13 1. Limited supine study. 2. Cardiomegaly with probable pulmonary venous congestion. 3. Hyperinflated lungs with chronic, ill-defined opacities in both lungs which are most likely areas of fibrosis. No definite lung consolidation. Report Dictated on Electronically Signed By: Bettye Ribera MD Electronically Signed Date/Time: 03/13/2025 9:18 AM [facility] Patient Name: JUN [...] 03/13/2025 [facility] 1965 [id number] Exam Date/Time: 03/13/2025 09:06 Procedure: XR CHEST [...] Electronically Signed Date/Time: 03/13/2025 9:18 AM EDT [facility] Radiology Study observation (narrative) [facility] XR Chest Single viewOrdered By: Bettye Ribera on 03-13-2025 [facility] Work Phone: Absolute lymphocyte countOrd ered By: Jayesh Stubbs on 03-12-2025 Lymphocytes Auto (Unsp spec) [#/Vol] 1.12 10*3/uL 0.83-4.51 [facility] Absolute neutrophil countOrd ered By: Jayesh Stubbs on 03-12-2025 Neutrophils (Bld) [#/Vol] 4.3 10*3/uL 2.0-7.7 [facility] Anion gap in Serum or Plasma Ordered By: Jayesh Stubbs on 03-12-2025 Anion gap [Moles/Vol] 13 mmol/L 5-15 [facility] Automated lymphocyte count a s percentage of total leukocytesOrdered By: Jayesh Stubbs on 03-12-2025 Lymphocytes/100 WBC Auto (Unsp spec) 16.9 % Low 19-41 [facility] BUN/creatinine ratioOrdered By: Jayesh Stubbs on 03-12-2025 Urea nitrogen/Creatinine [Mass ratio] 11.8 mg/mg 10-20 [facility] Basophil percentageOrdered B y: Jayesh Stubbs on 03-12-2025 Basophils/100 WBC (Bld) 2.0 % High 0-1 [facility] Bilirubin, totalOrdered By: Jayesh Stubbs on 03-12-2025 Bilirubin [Mass/Vol] 0.62 mg/dL 0.00-1.30 [facility] CBC W/Diff, Automatedon 02-25 Anisocytosis Ql (Bld) 1+ Normal [facility] Comment on above: Order Comment: 413.2 Performed By: #### L 500.4050, L100.0100, L300.3900 #### [facility] [address] [place], [address] Carbon dioxide, total [Moles /volume] in Central venous bloodOrdered By: Jayesh Stubbs on 03-12-2025 CO2 [Moles/Vol] 27.8 mmol/L 21.0-32.0 [facility] Chloride assayOrdered By: George Dorado on 03-12-2025 Chloride [Moles/Vol] 98 mmol/L 98-108 [facility] Eosinophil percentageOrdered By: Jayesh Stubbs on 03-12-2025 Eosinophils/100 WBC (Bld) 2.3 % 0-5 [facility] Erythrocyte distribution wid th ratioOrdered By: Jayesh Stubbs on 03-12-2025 Erythrocyte distribution width (RBC) [Ratio] 21.6 % High 11.6-14.6 [facility] Erythrocyte distribution wid th standard deviationOrdered By: Jayesh Stubbs on 03-12-2025 Erythrocyte distribution width (RBC) [Ratio] 79.4 fl High 35.1-43.9 [facility] Glomerular filtration rate ( GFR) estimation/1.73 sq m using serum, plasma, or whole bOrdered By: Jayesh Stubbs on 03-12-2025 GFR/1.73 sq M.predicted among non-blacks MDRD (S/P/Bld) [Vol rate/Area] 14 mL/min/{1.73_m2} Low >60 [facility] Comment on above: mL/min/1.73m2 CKD-EP I Creatinine Equation (2020) Hematocrit Auto (Bld) [Volum e fraction]Ordered By: Jayesh Stubbs on 03-12-2025 Hematocrit (Bld) [Volume fraction] 28.7 % Low 40-54 [facility] Hemoglobin measurementOrdere d By: Jayesh Stubbs on 03-12-2025 Hemoglobin (Bld) [Mass/Vol] 8.7 g/dL Low 13.0-16.5 [facility] Immature granulocytes/100 WB C Auto (Bld)Ordered By: Jayesh Stubbs on 03-12-2025 Immature granulocytes/100 WBC (Bld) 0.300 % 0.0-0.9 [facility] Comment on above: IG% - Immature Granu locytes (promyelocytes, myelocytes and metamyelocytes) > 1% indicates that a LEFT SHIFT is Present. International normalized rat io (INR) calculationOrdered By: Jayesh Stubbs on 03-12-2025 INR Coag (Bld) [Relative time] 1.9 {INR} [facility] - Chemistry and C hemistry - challengeOrdered By: Jayesh Stubbs on 03-12-2025 AST [Catalytic activity/Vol] 47 U/L High <38 [facility] - Hematology and Cell countsOrdered By: Jayesh Stubbs on 03-12-2025 Anisocytosis Ql (Bld) 1+ [facility] MCV (mean corpuscular volume ) determinationOrdered By: Jayesh Stubbs on 03-12-2025 MCV (RBC) [Entitic vol] 100.3 fL High 80-94 [facility] Mean corpuscular hemoglobin (MCH) determinationOrdered By: Jayesh Stubbs on 03-12-2025 MCH (RBC) [Entitic mass] 30.4 pg 27.0-32.0 [facility] Mean corpuscular hemoglobin concentration (MCHC) determinationOrdered By: Jayesh Stubbs on 03-12-2025 MCHC (RBC) [Mass/Vol] 30.3 g/dL Low 32-36 [facility] Mean platelet volume determi nationOrdered By: Jayesh Stubbs on 03-12-2025 Platelet mean volume (Bld) [Entitic vol] 9.5 fL 6.2-12.0 [facility] Monocyte percentageOrdered B y: Jayesh Stubbs on 03-12-2025 Monocytes/100 WBC (Bld) 14.2 % High 0-10 [facility] Neutrophil percentageOrdered By: Jayesh Stubbs on 03-12-2025 Neutrophils/100 WBC (Bld) 64.3 % 47-70 [facility] Nucleated red blood cell per centageOrdered By: Jayesh Stubbs on 03-12-2025 Nucleated RBC/100 WBC (Bld) [Ratio] 0.3 % 0-5 [facility] Platelet countOrdered By: Goerge Dorado on 03-12-2025 Platelets (Bld) [#/Vol] 404 10*3/uL 150-450 [facility] Potassium measurement (mass/ volume)Ordered By: Jayesh Stubbs on 03-12-2025 Potassium (Unsp spec) [Mass/Vol] 4.1 mmol/L 3.3-5.1 [facility] Prothrombin Time w/INRon INR Coag (PPP) [Relative time] 1.9 {INR} Normal [facility] Comment on above: Order Comment: 413.2 Performed By: #### L 500.4050, L100.0100, L300.3900 #### [facility] [address] [place], [address] PT Coag (PPP) [Time] 22.4 s High 11.7-14.9 [facility] Comment on above: Order Comment: 413.2 Performed By: #### L 500.4050, L100.0100, L300.3900 #### [facility] [address] [place], [address] Prothrombin timeOrdered By: Jayesh Stubbs on 03-12-2025 PT Coag (PPP) [Time] 22.4 s High 11.7-14.9 [facility] RBC Auto (Bld) [#/Vol]Ordere d By: Jayesh Stubbs on 03-12-2025 RBC (Bld) [#/Vol] 2.86 10*6/uL Low 4.6-6.2 [facility] Serum creatinine measurement (mass/volume)Ordered By: Jayesh Stubbs on 03-12-2025 Creatinine [Mass/Vol] 4.67 mg/dL High 0.70-1.20 [facility] Serum globulin measurementOr dered By: Jayesh Stubbs on 03-12-2025 Globulin (S) [Mass/Vol] 4.1 g/dL 2.2-4.2 [facility] Serum glucose measurement (m ass/volume)Ordered By: Jayesh Stubbs on 03-12-2025 Glucose [Mass/Vol] 102 mg/dL High 70-99 [facility] Serum or plasma alanine mayorga otransferase (ALT) measurementOrdered By: Jayesh Stubbs on 03-12-2025 ALT [Catalytic activity/Vol] 20 U/L <47 [facility] Serum or plasma albumin audrey urement (mass/volume)Ordered By: Jayesh Stubbs on 03-12-2025 Albumin [Mass/Vol] 3.0 g/dL Low 3.5-5.0 [facility] Serum or plasma albumin/glob ulin mass ratioOrdered By: Jayesh Stubbs on 03-12-2025 Albumin/Globulin [Mass ratio] 0.7 {ratio} Low 0.9-2.4 [facility] Serum or plasma alkaline jacob sphatase measurementOrdered By: Jayesh Stubbs on 03-12-2025 ALP [Catalytic activity/Vol] 171 U/L High 40-129 [facility] Serum or plasma calcium audrey urement (mass/volume)Ordered By: Jayesh Stubbs on 03-12-2025 Calcium [Mass/Vol] 9.9 mg/dL 7.6-11.0 [facility] Serum or plasma urea nitroge n measurement (mass/volume)Ordered By: Jayesh Stubbs on 03-12-2025 Urea nitrogen [Mass/Vol] 55 mg/dL High 4-19 [facility] Sodium levelOrdered By: George Stubbs on 03-12-2025 Sodium [Moles/Vol] 139 mmol/L 133-145 [facility] Total proteinOrdered By: Sonia Stubbs on 03-12-2025 Protein [Mass/Vol] 7.1 g/dL 5.9-8.4 [facility] White blood cell (WBC) count Ordered By: Jayesh Stubbs on 03-12-2025 WBC (Bld) [#/Vol] 6.6 10*3/uL 4.4-11.0 [facility] Potassiumon 03-09-2025 Potassium [Moles/Vol] 4.1 mmol/L Normal 3.3-5.1 [facility] Comment on above: Order Comment: 413-2 Performed By: #### L [id number] #### [facility] [address] [place] [address]. [place], [address] Potassium measurement (mass/ volume)Ordered By: Jayesh Stubbs on 03-09-2025 Potassium (Unsp spec) [Mass/Vol] 4.1 mmol/L 3.3-5.1 [facility] 36on 03-08-2025 36 2nd attempt called and spoke to the Alyssa the Nurse for the patient at the facility he lives at. She states Sabino is the person who schedules the appointments and she is on vacation and wont be back till next Wednesday. I will try again next wednesday Normal [facility] Progress Noteon 03-08-2025 Progress Note Normal [facility] 36on 03-06-2025 [address] [facility] [id number] 03-05-[id number] [facility] [id number] Auth is now pending with [facility] for [facility]. Auth ID: [id number] . The insurance needs PT and OT notes- as PT note yesterday incomplete , they are both requested . [facility] [id number] [facility] [id number] Discharge med list transmitted to [facility] via [facility] per TCC request[facility] [id number] [facility] [id number] [facility] APTTon 03-05-2025 aPTT Coag (Bld) [Time] 37.6 s High 20.0-30.5 [facility] Comment on above: Result Comment: ARPAN Kaplan COMMENTS:NOTE: The therapeutic time for Heparin anticoagulation, based on Xa activity inhibition, is an APTT of 46-80 seconds. Performed By: #### L [id number], [id number] ####Recycling Coordinator: DOMENICA JARA ([id number])[facility] ([facility])[address] [place] [address] BASIC METABOLIC PANELon 06-0 Anion gap [Moles/Vol] 8 mmol/L Normal 3-13 [facility] Comment on above: Performed By: #### L AB15 ####Recycling Coordinator: DOMENICA JARA ([id number])[facility] ([facility])[address] [place] [address] Calcium [Mass/Vol] 9.7 mg/dL Normal 8.4-10.2 [facility] Comment on above: Performed By: #### L AB15 ####Recycling Coordinator: DOMENICA JARA ([id number])[facility] ([facility])[address] [place] [address] [place] Chloride [Moles/Vol] 102 mmol/L Normal 98-107 [facility] Comment on above: Performed By: #### L AB15 ####Recycling Coordinator: DOMENICA JARA ([id number])[facility])[address] [place] [address] CO2 [Moles/Vol] 26 mmol/L Normal 22-29 [facility] Comment on above: Performed By: #### L AB15 ####Recycling Coordinator: DOMENICA JARA ([id number])[facility] ([facility])[address] [place] [address] Creatinine [Mass/Vol] 3.10 mg/dL High 0.72-1.25 [facility] Comment on above: Performed By: #### L AB15 ####Recycling Coordinator: DOMENICA JARA ([id number])[facility] ([facility])[address] [place] [address] [place] GLOMERULAR FILTRATION RATE ML/MIN/1.73 SQ M.PREDICTED 22.3 mL/min/1.73m*2 Low >60.0 [facility] Comment on above: Result Comment: Calc ulation based on the Chronic Kidney Disease Epidemiology Collaboration (CKD-EPI) equation refit without adjustment for race Performed By: #### L AB15 ####Recycling Coordinator: DOMENICA JARA ([id number])[facility] ([facility])[address] [place] [address] [place] Glucose [Mass/Vol] 68 mg/dL Low 74-100 [facility] Comment on above: Performed By: #### L AB15 ####Recycling Coordinator: DOMENICA JARA ([id number])[facility])[address] [place] [address] [place] Potassium [Moles/Vol] 5.9 mmol/L High 3.5-5.1 [facility] Comment on above: Result Comment: [facility] potassium values may be up to 0.5 mmol/L lower than serum values. Performed By: #### L AB15 ####Recycling Coordinator: DOMENICA JARA ([id number])[facility])[address] [place] [address] [place] Sodium [Moles/Vol] 136 mmol/L Normal 136-145 [facility] Comment on above: Performed By: #### L AB15 ####Recycling Coordinator: DOMENICA JARA ([phone])[facility] ([facility])[address] [place] [address] Urea nitrogen [Mass/Vol] 27 mg/dL High 9-23 [facility] Comment on above: Performed By: #### L AB15 ####Recycling Coordinator: DOMENICA JARA ([phone])[facility] ([facility])[address] [place] [address] Anion gap [Moles/Vol] 9 mmol/L Normal 3-13 [facility] Comment on above: Performed By: #### L AB15 ####Recycling Coordinator: DOMENICA JARA ([phone])[facility] ([facility])[address] [place] [address] Calcium [Mass/Vol] 9.7 mg/dL Normal 8.4-10.2 [facility] Comment on above: Performed By: #### L AB15 ####Recycling Coordinator: DOMENICA JARA ([phone])[facility] ([facility])[address] [place] [address] Chloride [Moles/Vol] 102 mmol/L Normal 98-107 [facility] Comment on above: Performed By: #### L AB15 ####Recycling Coordinator: DOMENICA JARA ([phone])[facility] ([facility])[address] [place] [address] [place] CO2 [Moles/Vol] 25 mmol/L Normal 22-29 [facility] Comment on above: Performed By: #### L AB15 ####Recycling Coordinator: DOMENICA JARA ([phone])[facility] ([facility])[address] [place] [address] Creatinine [Mass/Vol] 3.03 mg/dL High 0.72-1.25 [facility] Comment on above: Performed By: #### L AB15 ####Recycling Coordinator: DOMENICA JARA ([phone])[facility])[address] [place] [address] [place] GLOMERULAR FILTRATION RATE ML/MIN/1.73 SQ M.PREDICTED 22.9 mL/min/1.73m*2 Low >60.0 [facility] Comment on above: Result Comment: Calc ulation based on the Chronic Kidney Disease Epidemiology Collaboration (CKD-EPI) equation refit without adjustment for race Performed By: #### L AB15 ####Recycling Coordinator: DOMENICA JARA ([phone])[facility])[address] [place] [address] Glucose [Mass/Vol] 77 mg/dL Normal 74-100 [facility] Comment on above: Performed By: #### L AB15 ####Recycling Coordinator: DOMENICA JARA ([phone])[facility])[address] [place] [address] Potassium [Moles/Vol] 6.6 mmol/L Critically high 3.5-5.1 [facility] Comment on above: Result Comment: Plas ma potassium values may be up to 0.5 mmol/L lower than serum values. Performed By: #### L AB15 ####Recycling Coordinator: DOMENICA JARA ([phone])[facility])[address] [place] [address] Sodium [Moles/Vol] 136 mmol/L Normal 136-145 [facility] Comment on above: Performed By: #### L AB15 ####Recycling Coordinator: DOMENICA JARA ([phone])[facility])[address] [place] [address] Urea nitrogen [Mass/Vol] 26 mg/dL High 9-23 [facility] Comment on above: Performed By: #### L AB15 ####Recycling Coordinator: DOMENICA JARA ([phone])[facility])[address] [place] [address] Basic metabolic 1998 panelon 03-05-2025 Anion gap [Moles/Vol] 8 mmol/L 3 - 13 mmol/L [facility] Calcium [Mass/Vol] 9.7 mg/dL 8.4 - 10. 2 mg/dL [facility] Chloride [Moles/Vol] 102 mmol/L 98 - 10 7 mmol/L [facility] CO2 [Moles/Vol] 26 mmol/L 22 - 29 mmol/L [facility] Creatinine [Mass/Vol] 3.1 mg/dL High 0.72 - 1.25 mg/dL [facility] GFR/1.73 sq M.predicted (S/P/Bld) [Vol rate/Area] 22.3 mL/min Low - PINF [facility] Glucose [Mass/Vol] 68 mg/dL Low 74 - 100 mg/dL [facility] Interpretation and review of laboratory results Abnormal [facility] Potassium [Moles/Vol] 5.9 mmol/L High 3.5 - 5.1 mmol/L [facility] Sodium [Moles/Vol] 136 mmol/L 136 - 145 mmol/L [facility] Urea nitrogen [Mass/Vol] 27 mg/dL High 9 - 23 mg/d L [facility] Anion gap [Moles/Vol] 9 mmol/L 3 - 13 mmol/L [facility] Calcium [Mass/Vol] 9.7 mg/dL 8.4 - 10. 2 mg/dL [facility] Chloride [Moles/Vol] 102 mmol/L 98 - 10 7 mmol/L [facility] CO2 [Moles/Vol] 25 mmol/L 22 - 29 mmol/L [facility] Creatinine [Mass/Vol] 3.03 mg/dL High 0.72 - 1.25 mg/dL [facility] GFR/1.73 sq M.predicted (S/P/Bld) [Vol rate/Area] 22.9 mL/min Low - PINF [facility] Glucose [Mass/Vol] 77 mg/dL 74 - 100 mg/dL [facility] Interpretation and review of laboratory results Abnormal [facility] Potassium [Moles/Vol] 6.6 mmol/L Critically high 3.5 - 5.1 mmol/L [facility] Sodium [Moles/Vol] 136 mmol/L 136 - 145 mmol/L [facility] Urea nitrogen [Mass/Vol] 26 mg/dL High 9 - 23 mg/d L [facility] CBC (HEMOGRAM)on 03-05-2025 Erythrocyte distribution width (RBC) [Ratio] 21.6 % High 11.5-15.0 [facility] Comment on above: Performed By: #### L [id number] ####Recycling Coordinator: DOMENICA JARA ([phone])[address] Hematocrit (Bld) [Volume fraction] 25.7 % Low 40.0-52.0 [facility] Comment on above: Performed By: #### L AB294 ####Recycling Coordinator: DOMENICA JARA ([phone])[facility])[address] [place] [address] Hemoglobin (Bld) [Mass/Vol] 7.7 g/dL Low 13.0-18.0 [facility] Comment on above: Performed By: #### L AB294 ####Recycling Coordinator: DOMENICA JARA ([id number])[address] MCH (RBC) [Entitic mass] 29.7 pg Normal 26.0-34.0 [facility] Comment on above: Performed By: #### L AB294 ####Recycling Coordinator: DOMENICA JARA ([phone])[facility])[address] [place] [address] MCHC 30.0 % Low 30.5-36.0 [facility] Comment on above: Performed By: #### L AB294 ####Recycling Coordinator: DOMENICA JARA ([phone])[address] MCV (RBC) [Entitic vol] 99.2 fL High 77.0-99.0 [facility] Comment on above: Performed By: #### L AB294 ####Recycling Coordinator: DOMENICA JARA ([id number])[facility])[address] [place] [address] Platelet mean volume (Bld) [Entitic vol] 9.1 fL Normal 9.0-12.7 [facility] Comment on above: Performed By: #### L AB294 ####Recycling Coordinator: DOMENICA JARA ([id number])[facility] ([facility])[address] [place] [address] Platelets (Bld) [#/Vol] 303 10*3/uL Normal 140-440 [facility] Comment on above: Performed By: #### L AB294 ####Recycling Coordinator: DOMENICA JARA ([phone])[facility])[address] [place] [address] RBC (Bld) [#/Vol] 2.59 10*6/uL Low 4.40-5.90 [facility] Comment on above: Performed By: #### L AB294 ####Recycling Coordinator: DOMENICA JARA ([phone])[facility])[address] [place] [address] WBC (Bld) [#/Vol] 9.1 10*3/uL Normal 3.6-10.7 [facility] Comment on above: Performed By: #### L AB294 ####Recycling Coordinator: DOMENICA JARA ([id number])[facility] ([facility])[address] [place] [address] CBC W/Diff, Automatedon 06-0 Absolute Neut Normal 2.0-7.7 [facility] Comment on above: Order Comment: 412.2 Result Comment: [facility] Performed By: #### L 100.0100, L300.3900, L500.4050 #### [facility] [address] [place] [address] HCT Normal 40-54 [facility] Comment on above: Order Comment: 412.2 Result Comment: [facility] Performed By: #### L 100.0100, L300.3900, L500.4050 #### [facility] [address] [facility] [address] HGB Normal 13.0-16.5 [facility] Comment on above: Order Comment: 412.2 Result Comment: [facility] Performed By: #### L 100.0100, L300.3900, L500.4050 #### [facility] [address] [place], [address] MCH Normal 27.0-32.0 [facility] Comment on above: Order Comment: 412.2 Result Comment: [facility] Performed By: #### L 100.0100, L300.3900, L500.4050 #### [facility] [address] [place], [address] MCHC Normal 32-36 [facility] Comment on above: Order Comment: 412.2 Result Comment: [facility] Performed By: #### L 100.0100, L300.3900, [id number] #### [facility] [address] [place], [address] MCV Normal 80-94 [facility] Comment on above: Order Comment: 412.2 Result Comment: [facility] Performed By: #### L 100.0100, L300.3900, L500.4050 #### [facility] [address] [place], [address] NEUT% Normal 47-70 [facility] Comment on above: Order Comment: 412.2 Result Comment: [facility] Performed By: #### L 100.0100, L300.3900, [id number] #### [facility] [address] [place], [address] PLT Normal 150-450 [facility] Comment on above: Order Comment: 412.2 Result Comment: [facility] Performed By: #### L 100.0100, L300.3900, [id number] #### [facility] [address] [place], [address] RBC Normal 4.6-6.2 [facility] Comment on above: Order Comment: 412.2 Result Comment: [facility] Performed By: #### L 100.0100, L300.3900, L500.4050 #### [facility] [address] [place], [address] RDW CV Normal 11.6-14.6 [facility] Comment on above: Order Comment: 412.2 Result Comment: [facility] Performed By: #### L 100.0100, L300.3900, L500.4050 #### [facility] [address] [place], [address] RDW SD Normal 35.1-43.9 [facility] Comment on above: Order Comment: 412.2 Result Comment: [facility] Performed By: #### L 100.0100, L300.3900, L500.4050 #### [facility] [address] [place], [address] WBC Normal 4.4-11.0 [facility] Comment on above: Order Comment: 412.2 Result Comment: [facility] Performed By: #### L 100.0100, L300.3900, L500.4050 #### [facility] [address] [place], [address] CBC panel Auto (Bld)on 03-05 Erythrocyte distribution width (RBC) [Ratio] 21.6 % High 11.5 - 15.0 % [facility] Hematocrit (Bld) [Volume fraction] 25.7 % Low 40.0 - 52.0 % [facility] Hemoglobin (Bld) [Mass/Vol] 7.7 g/dL Low 13.0 - 18.0 g/dL [facility] Interpretation and review of laboratory results Abnormal [facility] MCH (RBC) [Entitic mass] 29.7 pg 26. 0 - 34.0 pg [facility] MCHC (RBC) [Mass/Vol] 30 % Low 30.5 - 36.0 % [facility] MCV (RBC) [Entitic vol] 99.2 fL High 77.0 - 99.0 fL [facility] Platelet mean volume (Bld) [Entitic vol] 9.1 fL 9.0 - 12.7 fL [facility] Platelets (Bld) [#/Vol] 303 10*3/uL 140 - 440 10*3/uL [facility] RBC (Bld) [#/Vol] 2.59 10*6/uL Low 4.40 - 5.9 0 10*6/uL [facility] WBC (Bld) [#/Vol] 9.1 10*3/uL 3.6 - 10.7 10*3/uL [facility] Comprehensive Metabolic Prof ilsofía 03-05-2025 ALB Normal 3.5-5.0 [facility] Comment on above: Order Comment: 412.2 Result Comment: [facility] Performed By: #### L 100.0100, L300.3900, L500.4050 #### [facility] [address] [place], [address] ALK PHOS Normal 40-129 [facility] Comment on above: Order Comment: 412.2 Result Comment: [facility] Performed By: #### L 100.0100, L300.3900, L500.4050 #### [facility] [address] [place], [address] ALT Normal <=46 [facility] Comment on above: Order Comment: 412.2 Result Comment: [facility] Performed By: #### L 100.0100, L300.3900, L500.4050 #### [facility] [address] [place], [address] AST Normal <=37 [facility] Comment on above: Order Comment: 412.2 Result Comment: [facility] Performed By: #### L 100.0100, L300.3900, L500.4050 #### [facility] [address] [place], [address] BUN Normal 4-19 [facility] Comment on above: Order Comment: 412.2 Result Comment: [facility] Performed By: #### L 100.0100, L300.3900, L500.4050 #### [facility] [address] [place], [address] BUN/CRE Normal 10-20 [facility] Comment on above: Order Comment: 412.2 Result Comment: [facility] Performed By: #### L 100.0100, L300.3900, L500.4050 #### [facility] [address] [place], [address] Calcium Normal 7.6-11.0 [facility] Comment on above: Order Comment: 412.2 Result Comment: [facility] Performed By: #### L 100.0100, L300.3900, L500.4050 #### [facility] [address] [place], [address] CL Normal 98-108 [facility] Comment on above: Order Comment: 412.2 Result Comment: [facility] Performed By: #### L 100.0100, L300.3900, L500.4050 #### [facility] [address] [place], [address] CO2 Normal 21.0-32.0 [facility] Comment on above: Order Comment: 412.2 Result Comment: [facility] Performed By: #### L 100.0100, L300.3900, L500.4050 #### [facility] [address] [place], [address] CREAT,SERUM Normal 0.70-1.20 [facility] Comment on above: Order Comment: 412.2 Result Comment: [facility] Performed By: #### L 100.0100, L300.3900, L500.4050 #### [facility] [address] [place], [address] eGFR Normal >60 [facility] Comment on above: Order Comment: 412.2 Result Comment: [facility] Performed By: #### L 100.0100, L300.3900, L500.4050 #### [facility] [address] [place], [address] GAP Normal 5-15 [facility] Comment on above: Order Comment: 412.2 Result Comment: [facility] Performed By: #### L 100.0100, L300.3900, L500.4050 #### [facility] [address] [place], [address] GLU Normal 70-99 [facility] Comment on above: Order Comment: 412.2 Result Comment: [facility] Performed By: #### L 100.0100, L300.3900, L500.4050 #### [facility] [address] [place], [address] Potassium Normal 3.3-5.1 [facility] Comment on above: Order Comment: 412.2 Result Comment: [facility] Performed By: #### L 100.0100, L300.3900, L500.4050 #### [facility] [address] [place], [address] T BILI Normal 0.00-1.30 [facility] Comment on above: Order Comment: 412.2 Result Comment: [facility] Performed By: #### L 100.0100, L300.3900, L500.4050 #### [facility] [address] [place], [address] T PROT Normal 5.9-8.4 [facility] Comment on above: Order Comment: 412.2 Result Comment: [facility] Performed By: #### L 100.0100, L300.3900, L500.4050 #### [facility] [address] [place], [address] Comprehensive Metabolic Profil Normal 133-145 [facility] Comment on above: Order Comment: 412.2 Result Comment: [facility] Performed By: #### L 100.0100, L300.3900, L500.4050 #### [facility] [address] [place], [address] Laboratory - Chemistry and C hemistry - challengeon 03-05-2025 Glucose [Mass/Vol] 142 mg/dL High 70 - 100 mg/dL [facility] Glucose [Mass/Vol] 83 mg/dL 70 - 100 mg/dL [facility] Laboratory - Coagulationon 0 03-05-2025 PT Coag (Bld) [Time] 18.6 s High 9.0 - 12.0 s [facility] No Panel Informationon 03-05 Interpretation and review of laboratory results Abnormal [facility] Interpretation and review of laboratory results Normal [facility] Interpretation and review of laboratory results Abnormal [facility] PROTHROMBIN TIMEon INR Coag (PPP) [Relative time] 1.8 {INR} High 0.9-1.1 [facility] Comment on above: Result Comment: Vaughn [...] Myocardial Infarction Performed By: #### Tameka AB325, [id number] ####Recycling Coordinator: DOMENICA JARA ([id number])[facility])[address] [place] [address] PT Coag (PPP) [Time] 18.6 s High 9.0-12.0 [facility] Comment on above: Performed By: #### Tameka ISAAC325, [id number] ####Recycling Coordinator: DOMENICA JARA ([phone])[facility])[address] [place] [address] PT Coag (Bld) [Time]on 03-05 INR Coag (PPP) [Relative time] 1.8 {INR} High 0.9 - 1.1 [facility] Progress Noteon 03-05-2025 Progress Note Normal [facility] Progress Note Normal [facility] Progress Note Normal [facility] Progress [facility] Normal [facility] Progress Note Normal [facility] Progress Note Normal [facility] Prothrombin Time w/INRon INR Normal [facility] Comment on above: Order Comment: 412.2 Result Comment: [facility] Performed By: #### L 100.0100, L300.3900, L500.4050 #### [facility] [address] [place], [place], [address] PROTIME Normal 11.7-14.9 [facility] Comment on above: Order Comment: 412.2 Result Comment: [facility] Performed By: #### L 100.0100, L300.3900, L500.4050 #### [facility] [address] [place], [address] aPTT Coag (Bld) [Time]on aPTT Coag (PPP) [Time] 37.6 s High 20.0 - 30.5 s [facility] 30on 03-04-2025 30 Normal [facility] [id number] 03-04-2025 [id number] Normal [facility] APTTon 03-04-2025 aPTT Coag (Bld) [Time] 52.2 s High 20.0-30.5 [facility] Comment on above: Result Comment: ARPAN R COMMENTS:NOTE: The therapeutic time for Heparin anticoagulation, based on Xa activity inhibition, is an APTT of 46-80 seconds. Performed By: #### L AB325, [id number] ####Recycling Coordinator: DOMENICA JARA ([phone])[facility] ([address] BASIC METABOLIC PANELon Anion gap [Moles/Vol] 11 mmol/L Normal 3-13 [facility] Comment on above: Performed By: #### L AB15 ####Recycling Coordinator: DOMENICA JARA ([id number])[facility] ([facility])[address] [place] [address] Calcium [Mass/Vol] 9.4 mg/dL Normal 8.4-10.2 [facility] Comment on above: Performed By: #### L AB15 ####Recycling Coordinator: DOMENICA JARA ([id number])[facility] ([facility])[address] [place] [address] [place] Chloride [Moles/Vol] 103 mmol/L Normal 98-107 [facility] Comment on above: Performed By: #### L AB15 ####Recycling Coordinator: DOMENICA JARA ([id number])[facility] ([facility])[address] [place] [address] CO2 [Moles/Vol] 27 mmol/L Normal 22-29 [facility] Comment on above: Performed By: #### L AB15 ####Recycling Coordinator: DOMENICA JARA ([phone])[facility] ([facility])[address] [place] [address] Creatinine [Mass/Vol] 2.41 mg/dL High 0.72-1.25 [facility] Comment on above: Performed By: #### L AB15 ####Recycling Coordinator: DOMENICA JARA ([phone])[facility] ([facility])[address] [place] [address] [place] GLOMERULAR FILTRATION RATE ML/MIN/1.73 SQ M.PREDICTED 30.2 mL/min/1.73m*2 Low >60.0 [facility] Comment on above: Result Comment: Calc ulation based on the Chronic Kidney Disease Epidemiology Collaboration (CKD-EPI) equation refit without adjustment for race Performed By: #### L AB15 ####Recycling Coordinator: DOMENICA JARA ([phone])[facility] ([facility])[address] [place] [address] [place] Glucose [Mass/Vol] 99 mg/dL Normal 74-100 [facility] Comment on above: Performed By: #### L AB15 ####Recycling Coordinator: DOMENICA JARA ([phone])[facility] ([facility])[address] [place] [address] Potassium [Moles/Vol] 5.1 mmol/L Normal 3.5-5.1 [facility] Comment on above: Result Comment: [facility] potassium values may be up to 0.5 mmol/L lower than serum values. Performed By: #### L AB15 ####Recycling Coordinator: DOMENICA JARA ([phone])[facility] [place] [address] Sodium [Moles/Vol] 141 mmol/L Normal 136-145 [facility] Comment on above: Performed By: #### L AB15 ####Recycling Coordinator: DOMENICA JARA ([phone])[facility] ([facility])[address] [place] [address] Urea nitrogen [Mass/Vol] 18 mg/dL Normal 9-23 [facility] Comment on above: Performed By: #### L AB15 ####Recycling Coordinator: DOMENICA JARA ([id number])[facility] [place] [address] Basic metabolic 1998 panelon 03-04-2025 Anion gap [Moles/Vol] 11 mmol/L 3 - 13 mmol/L [facility] Calcium [Mass/Vol] 9.4 mg/dL 8.4 - 10. 2 mg/dL [facility] Chloride [Moles/Vol] 103 mmol/L 98 - 10 7 mmol/L [facility] CO2 [Moles/Vol] 27 mmol/L 22 - 29 mmol/L [facility] Creatinine [Mass/Vol] 2.41 mg/dL High 0.72 - 1.25 mg/dL [facility] GFR/1.73 sq M.predicted (S/P/Bld) [Vol rate/Area] 30.2 mL/min Low - PINF [facility] Glucose [Mass/Vol] 99 mg/dL 74 - 100 mg/dL [facility] Interpretation and review of laboratory results Abnormal [facility] Potassium [Moles/Vol] 5.1 mmol/L 3.5 - 5.1 mmol/L [facility] Sodium [Moles/Vol] 141 mmol/L 136 - 145 mmol/L [facility] Urea nitrogen [Mass/Vol] 18 mg/dL 9 - 23 mg/d L [facility] CBC (HEMOGRAM)on 03-04-2025 Erythrocyte distribution width (RBC) [Ratio] 21.4 % High 11.5-15.0 [facility] Comment on above: Performed By: #### L [id number] ####Recycling Coordinator: DOMENICA JARA ([phone])[facility])[address] [place] [address] Hematocrit (Bld) [Volume fraction] 25.9 % Low 40.0-52.0 [facility] Comment on above: Performed By: #### L [id number] ####Recycling Coordinator: DOMENICA JARA ([phone])[address] Hemoglobin (Bld) [Mass/Vol] 7.7 g/dL Low 13.0-18.0 [facility] Comment on above: Performed By: #### L AB294 ####Recycling Coordinator: DOMENICA JARA ([id number])[address] MCH (RBC) [Entitic mass] 29.3 pg Normal 26.0-34.0 [facility] Comment on above: Performed By: #### L AB294 ####Recycling Coordinator: DOMENICA JARA ([id number])[address] MCHC 29.7 % Low 30.5-36.0 [facility] Comment on above: Performed By: #### L AB294 ####Recycling Coordinator: DOMENICA JARA ([id number])[address] MCV (RBC) [Entitic vol] 98.5 fL Normal 77.0-99.0 [facility] Comment on above: Performed By: #### L AB294 ####[facility] Coordinator: DOMENICA JARA ([id number])[facility] ([facility])[address] [place] [address] Platelet mean volume (Bld) [Entitic vol] 9.3 fL Normal 9.0-12.7 [facility] Comment on above: Performed By: #### L [id number] ####Recycling Coordinator: DOMENICA JARA ([id number])[facility])[address] [place] [address] Platelets (Bld) [#/Vol] 324 10*3/uL Normal 140-440 [facility] Comment on above: Performed By: #### L AB294 ####Recycling Coordinator: DOMENICA JARA ([id number])[facility])[address] [place] [address] RBC (Bld) [#/Vol] 2.63 10*6/uL Low 4.40-5.90 [facility] Comment on above: Performed By: #### L AB294 ####Recycling Coordinator: DOMENICA JARA ([id number])[facility] ([facility])[address] [place] [address] WBC (Bld) [#/Vol] 7.7 10*3/uL Normal 3.6-10.7 [facility] Comment on above: Performed By: #### L AB294 ####Recycling Coordinator: DOMENICA JARA ([id number])[facility])[address] [place] [address] CBC panel Auto (Bld)on 03-04 Erythrocyte distribution width (RBC) [Ratio] 21.4 % High 11.5 - 15.0 % [facility] Hematocrit (Bld) [Volume fraction] 25.9 % Low 40.0 - 52.0 % [facility] Hemoglobin (Bld) [Mass/Vol] 7.7 g/dL Low 13.0 - 18.0 g/dL [facility] Interpretation and review of laboratory results Abnormal [facility] MCH (RBC) [Entitic mass] 29.3 pg 26. 0 - 34.0 pg [facility] MCHC (RBC) [Mass/Vol] 29.7 % Low 30.5 - 36.0 % [facility] MCV (RBC) [Entitic vol] 98.5 fL 77.0 - 99.0 fL [facility] Platelet mean volume (Bld) [Entitic vol] 9.3 fL 9.0 - 12.7 fL [facility] Platelets (Bld) [#/Vol] 324 10*3/uL 140 - 440 10*3/uL [facility] RBC (Bld) [#/Vol] 2.63 10*6/uL Low 4.40 - 5.9 0 10*6/uL [facility] WBC (Bld) [#/Vol] 7.7 10*3/uL 3.6 - 10.7 10*3/uL [facility] Laboratory - Coagulationon 0 03-04-2025 PT Coag (Bld) [Time] 16.6 s High 9.0 - 12.0 s [facility] PT Coag (Bld) [Time] 15.5 s High 9.0 - 12.0 s [facility] No Panel Informationon 03-04 Interpretation and review of laboratory results Abnormal [facility] PROTHROMBIN TIMEon INR Coag (PPP) [Relative time] 1.6 {INR} High 0.9-1.1 [facility] Comment on above: Result Comment: Vaughn [...] Myocardial Infarction Performed By: #### L AB320 ####Recycling Coordinator: DOMENICA JARA ([id number])[facility] ([address] PT Coag (PPP) [Time] 16.6 s High 9.0-12.0 [facility] Comment on above: Performed By: #### L AB320 ####Recycling Coordinator: DOMENICA JARA ([id number])[facility] ([facility])[address] [place] [address] INR Coag (PPP) [Relative time] 1.5 {INR} High 0.9-1.1 [facility] Comment on above: Result Comment: Vaughn [...] Myocardial Infarction Performed By: #### Tameka AB325, [id number] ####Recycling Coordinator: DOMENICA JARA ([id number])[facility] ([facility])[address] [place] [address] PT Coag (PPP) [Time] 15.5 s High 9.0-12.0 [facility] Comment on above: Performed By: #### Tameka AB325, [id number] ####Recycling Coordinator: DOMENICA JARA ([id number])[facility] ([facility])[address] [place] [address] PT Coag (Bld) [Time]on 03-04 INR Coag (PPP) [Relative time] 1.6 {INR} High 0.9 - 1.1 [facility] Interpretation and review of laboratory results Abnormal [facility] INR Coag (PPP) [Relative time] 1.5 {INR} High 0.9 - 1.1 [facility] Progress Noteon 03-04-2025 Progress Note Normal [facility] Progress Note Normal [facility] Progress Note Normal [facility] aPTT Coag (Bld) [Time]on aPTT Coag (PPP) [Time] 52.2 s High 20.0 - 30.5 s [facility] 30on 03-03-2025 30 Normal [facility] 30 Normal [facility] 30 Normal [facility] [id number] 03-03-2025 [id number] Normal [facility] APTTon 03-03-2025 aPTT Coag (Bld) [Time] 66.2 s High 20.0-30.5 [facility] Comment on above: Result Comment: ARPAN Kaplan COMMENTS:NOTE: The therapeutic time for Heparin anticoagulation, based on Xa activity inhibition, is an APTT of 46-80 seconds. Performed By: #### L AB325 ####Recycling Coordinator: DOMENICA JARA ([id number])[facility] ([facility])[address] [place] [address] aPTT Coag (Bld) [Time] 52.4 s High 20.0-30.5 [facility] Comment on above: Result Comment: ARPAN Kaplan COMMENTS:NOTE: The therapeutic time for Heparin anticoagulation, based on Xa activity inhibition, is an APTT of 46-80 seconds. Performed By: #### L AB325, [id number] ####Recycling Coordinator: DOMENICA JARA ([id number])[facility])[address] [place] [address] BASIC METABOLIC PANELon Anion gap [Moles/Vol] 10 mmol/L Normal 3-13 [facility] Comment on above: Performed By: #### L AB15 ####Recycling Coordinator: DOMENICA JARA ([id number])[facility] ([facility])[address] [place] [address] Calcium [Mass/Vol] 9.2 mg/dL Normal 8.4-10.2 [facility] Comment on above: Performed By: #### L AB15 ####Recycling Coordinator: DOMENICA JARA ([id number])[facility] ([facility])[address] [place] [address] [place] Chloride [Moles/Vol] 100 mmol/L Normal 98-107 [facility] Comment on above: Performed By: #### L AB15 ####Recycling Coordinator: DOMENICA JARA ([id number])[facility] ([facility])[address] [place] [address] CO2 [Moles/Vol] 29 mmol/L Normal 22-29 [facility] Comment on above: Performed By: #### L AB15 ####Recycling Coordinator: DOMENICA JARA ([id number])[facility])[address] [place] [address] Creatinine [Mass/Vol] 1.92 mg/dL High 0.72-1.25 [facility] Comment on above: Performed By: #### L AB15 ####Recycling Coordinator: DOMENICA JARA ([id number])[facility])[address] [place] [address] GLOMERULAR FILTRATION RATE ML/MIN/1.73 SQ M.PREDICTED 39.6 mL/min/1.73m*2 Low >60.0 [facility] Comment on above: Result Comment: Calc ulation based on the Chronic Kidney Disease Epidemiology Collaboration (CKD-EPI) equation refit without adjustment for race Performed By: #### L AB15 ####Recycling Coordinator: DOMENICA JARA ([id number])[facility])[address] [place] [address] Glucose [Mass/Vol] 71 mg/dL Low 74-100 [facility] Comment on above: Performed By: #### L AB15 ####Recycling Coordinator: DOMENICA JARA ([id number])[facility])[address] [place] [address] Potassium [Moles/Vol] 4.8 mmol/L Normal 3.5-5.1 [facility] Comment on above: Result Comment: [facility] potassium values may be up to 0.5 mmol/L lower than serum values. Performed By: #### L AB15 ####Recycling Coordinator: DOMENICA JARA ([id number])[facility])[address] [place] [address] [place] Sodium [Moles/Vol] 139 mmol/L Normal 136-145 [facility] Comment on above: Performed By: #### L AB15 ####Recycling Coordinator: DOMENICA JARA ([id number])[facility])[address] [place] [address] [place] Urea nitrogen [Mass/Vol] 14 mg/dL Normal 9-23 [facility] Comment on above: Performed By: #### L AB15 ####Recycling Coordinator: DOMENICA JARA ([id number])[facility] ([facility])[address] [place] [address] Anion gap [Moles/Vol] 11 mmol/L Normal 3-13 [facility] Comment on above: Performed By: #### L AB15 ####Recycling Coordinator: DOMENICA JARA ([id number])[facility] ([facility])[address] [place] [address] Calcium [Mass/Vol] 9.8 mg/dL Normal 8.4-10.2 [facility] Comment on above: Performed By: #### L AB15 ####Recycling Coordinator: DOMENICA JARA ([id number])[facility] ([facility])[address] [place] [address] Chloride [Moles/Vol] 101 mmol/L Normal 98-107 [facility] Comment on above: Performed By: #### L AB15 ####Recycling Coordinator: DOMENICA JARA ([id number])[facility] ([facility])[address] [place] [address] CO2 [Moles/Vol] 28 mmol/L Normal 22-29 [facility] Comment on above: Performed By: #### L AB15 ####Recycling Coordinator: DOMENICA JARA ([id number])[facility] ([facility])[address] [place] [address] Creatinine [Mass/Vol] 3.21 mg/dL High 0.72-1.25 [facility] Comment on above: Performed By: #### L AB15 ####Recycling Coordinator: DOMENICA JARA ([id number])[facility] ([facility])[address] [place] [address] GLOMERULAR FILTRATION RATE ML/MIN/1.73 SQ M.PREDICTED 21.4 mL/min/1.73m*2 Low >60.0 [facility] Comment on above: Result Comment: Calc ulation based on the Chronic Kidney Disease Epidemiology Collaboration (CKD-EPI) equation refit without adjustment for race Performed By: #### L AB15 ####Recycling Coordinator: DOMENICA JARA ([id number])[facility] [place] [address] Glucose [Mass/Vol] 93 mg/dL Normal 74-100 [facility] Comment on above: Performed By: #### L AB15 ####Recycling Coordinator: DOMENICA JARA ([id number])[facility] ([facility])[address] [place] [address] Potassium [Moles/Vol] 6.2 mmol/L Critically high 3.5-5.1 [facility] Comment on above: Result Comment: [facility] potassium values may be up to 0.5 mmol/L lower than serum values. Performed By: #### L AB15 ####Recycling Coordinator: DOMENICA JARA ([id number])[facility] ([facility])[address] [place] [address] Sodium [Moles/Vol] 140 mmol/L Normal 136-145 [facility] Comment on above: Performed By: #### L AB15 ####Recycling Coordinator: DOMENICA JARA ([id number])[facility] ([facility])[address] [place] [address] Urea nitrogen [Mass/Vol] 26 mg/dL High 9-23 [facility] Comment on above: Performed By: #### L AB15 ####Recycling Coordinator: DOMENICA JARA ([id number])[facility] ([facility])[address] [place] [address] Basic metabolic 1998 panelOr dered By: Piedad Alvarado on 03-03-2025 Anion gap [Moles/Vol] 10 mmol/L 3 - 13 mmol/L [facility] Calcium [Mass/Vol] 9.2 mg/dL 8.4 - 10. 2 mg/dL [facility] Chloride [Moles/Vol] 100 mmol/L 98 - 10 7 mmol/L [facility] CO2 [Moles/Vol] 29 mmol/L 22 - 29 mmol/L [facility] Creatinine [Mass/Vol] 1.92 mg/dL High 0.72 - 1.25 mg/dL [facility] GFR/1.73 sq M.predicted (S/P/Bld) [Vol rate/Area] 39.6 mL/min Low - PINF [facility] Glucose [Mass/Vol] 71 mg/dL Low 74 - 100 mg/dL [facility] Interpretation and review of laboratory results Abnormal [facility] Potassium [Moles/Vol] 4.8 mmol/L 3.5 - 5.1 mmol/L [facility] Sodium [Moles/Vol] 139 mmol/L 136 - 145 mmol/L [facility] Urea nitrogen [Mass/Vol] 14 mg/dL 9 - 23 mg/d L [facility] Basic metabolic 1998 panelOr dered By: Jenni Romano on 03-03-2025 Anion gap [Moles/Vol] 11 mmol/L 3 - 13 mmol/L [facility] Calcium [Mass/Vol] 9.8 mg/dL 8.4 - 10. 2 mg/dL [facility] Chloride [Moles/Vol] 101 mmol/L 98 - 10 7 mmol/L [facility] CO2 [Moles/Vol] 28 mmol/L 22 - 29 mmol/L [facility] Creatinine [Mass/Vol] 3.21 mg/dL High 0.72 - 1.25 mg/dL [facility] GFR/1.73 sq M.predicted (S/P/Bld) [Vol rate/Area] 21.4 mL/min Low - PINF [facility] Glucose [Mass/Vol] 93 mg/dL 74 - 100 mg/dL [facility] Interpretation and review of laboratory results Abnormal [facility] Potassium [Moles/Vol] 6.2 mmol/L Critically high 3.5 - 5.1 mmol/L [facility] Sodium [Moles/Vol] 140 mmol/L 136 - 145 mmol/L [facility] Urea nitrogen [Mass/Vol] 26 mg/dL High 9 - 23 mg/d L [facility] CBC (HEMOGRAM)on 03-03-2025 Erythrocyte distribution width (RBC) [Ratio] 20.9 % High 11.5-15.0 [facility] Comment on above: Performed By: #### L [id number] ####Recycling Coordinator: DOMENICA JARA ([id number])[facility] ([address] Hematocrit (Bld) [Volume fraction] 27.8 % Low 40.0-52.0 [facility] Comment on above: Performed By: #### L AB294 ####Recycling Coordinator: DOMENICA JARA ([id number])[facility])[address] [place] [address] Hemoglobin (Bld) [Mass/Vol] 8.3 g/dL Low 13.0-18.0 [facility] Comment on above: Performed By: #### L AB294 ####Recycling Coordinator: DOMENICA JARA ([id number])[facility] ([facility])[address] [place] [address] IPF 2 Normal [facility] Comment on above: Performed By: #### L AB294 ####Recycling Coordinator: DOMENICA JARA ([id number])[facility])[address] [place] [address] MCH (RBC) [Entitic mass] 29.5 pg Normal 26.0-34.0 [facility] Comment on above: Performed By: #### L AB294 ####Recycling Coordinator: DOMENICA JARA ([id number])[facility])[address] [place] [address] MCHC 29.9 % Low 30.5-36.0 [facility] Comment on above: Performed By: #### L AB294 ####Recycling Coordinator: DOMENICA JARA ([id number])[facility])[address] [place] [address] MCV (RBC) [Entitic vol] 98.9 fL Normal 77.0-99.0 [facility] Comment on above: Performed By: #### L AB294 ####Recycling Coordinator: DOMENICA JARA ([id number])[facility])[address] [place] [address] Platelet mean volume (Bld) [Entitic vol] 9.1 fL Normal 9.0-12.7 [facility] Comment on above: Performed By: #### L AB294 ####Recycling Coordinator: DOMENICA JARA ([id number])[facility])[address] [place] [address] Platelets (Bld) [#/Vol] 397 10*3/uL Normal 140-440 [facility] Comment on above: Performed By: #### L AB294 ####Recycling Coordinator: DOMENICA JARA ([id number])[facility])[address] [place] [address] RBC (Bld) [#/Vol] 2.81 10*6/uL Low 4.40-5.90 [facility] Comment on above: Performed By: #### L AB294 ####Recycling Coordinator: DOMENICA JARA ([id number])[address] WBC (Bld) [#/Vol] 8.9 10*3/uL Normal 3.6-10.7 [facility] Comment on above: Performed By: #### L AB294 ####Recycling Coordinator: DOMENICA JARA ([id number])[facility])[address] [place] [address] CBC panel Auto (Bld)Ordered By: Anu Graham on 03-03-2025 Erythrocyte distribution width (RBC) [Ratio] 20.9 % High 11.5 - 15.0 % [facility] Hematocrit (Bld) [Volume fraction] 27.8 % Low 40.0 - 52.0 % [facility] Hemoglobin (Bld) [Mass/Vol] 8.3 g/dL Low 13.0 - 18.0 g/dL [facility] Interpretation and review of laboratory results Abnormal [facility] REVENTIVE IPF 2 [facility] MCH (RBC) [Entitic mass] 29.5 pg 26. 0 - 34.0 pg [facility] MCHC (RBC) [Mass/Vol] 29.9 % Low 30.5 - 36.0 % [facility] MCV (RBC) [Entitic vol] 98.9 fL 77.0 - 99.0 fL [facility] Platelet mean volume (Bld) [Entitic vol] 9.1 fL 9.0 - 12.7 fL [facility] Platelets (Bld) [#/Vol] 397 10*3/uL 140 - 440 10*3/uL [facility] RBC (Bld) [#/Vol] 2.81 10*6/uL Low 4.40 - 5.9 0 10*6/uL [facility] WBC (Bld) [#/Vol] 8.9 10*3/uL 3.6 - 10.7 10*3/uL [facility] Laboratory - Coagulationon 0 03-03-2025 PT Coag (Bld) [Time] 16.2 s High 9.0 - 12.0 s [facility] No Panel Informationon 03-03 Interpretation and review of laboratory results Abnormal [facility] Nursing Noteon 03-03-2025 Nursing Note Normal [facility] Nursing Note In patient's chart, d/t patient being on his call light excessively and finally telling me he wants something for pain. Please see eMAR for administration Normal [facility] PROTHROMBIN TIMEon INR Coag (PPP) [Relative time] 1.6 {INR} High 0.9-1.1 [facility] Comment on above: Result Comment: Vaughn [...] Myocardial Infarction Performed By: #### Tameka AB325, [id number] ####Recycling Coordinator: DOMENICA JARA ([id number])[facility] ([facility])[address] [place] [address] [place] PT Coag (PPP) [Time] 16.2 s High 9.0-12.0 [facility] Comment on above: Performed By: #### Tameka AB325, [id number] ####Recycling Coordinator: DOMENICA JARA ([id number])[facility] ([facility])[address] [place] [address] PT Coag (Bld) [Time]on 03-03 INR Coag (PPP) [Relative time] 1.6 {INR} High 0.9 - 1.1 [facility] Progress Noteon 03-03-2025 Progress Note Normal [facility] Progress Note Normal [facility] Progress Note Normal [facility] aPTT Coag (Bld) [Time]on aPTT Coag (PPP) [Time] 66.2 s High 20.0 - 30.5 s [facility] Interpretation and review of laboratory results Abnormal [facility] aPTT Coag (PPP) [Time] 52.4 s High 20.0 - 30.5 s [facility] 30on 03-02-2025 30 Switch to augmentin 500mg q24 (to be taken after HD on HD days) until 03/10/25. Team aware of discharge plan Waiting for INR to be in therapeutic range ID will sign off Please re consult if needed Hussain Quintana MD 03/02/2025 12:43 PM Normal [facility] 30 Normal [facility] [id number] 03-02-2025 [id number] Normal [facility] APTTon 03-02-2025 aPTT Coag (Bld) [Time] 68.9 s High 20.0-30.5 [facility] Comment on above: Result Comment: ARPAN Kaplan COMMENTS:NOTE: The therapeutic time for Heparin anticoagulation, based on Xa activity inhibition, is an APTT of 46-80 seconds. Performed By: #### L AB325 ####Recycling Coordinator: DOMENICA JARA ([id number])[address] aPTT Coag (Bld) [Time] 44.7 s High 20.0-30.5 [facility] Comment on above: Result Comment: ARPAN Kaplan COMMENTS:NOTE: The therapeutic time for Heparin anticoagulation, based on Xa activity inhibition, is an APTT of 46-80 seconds. Performed By: #### L AB325 ####Recycling Coordinator: DOMENICA JARA ([id number])[facility] ([facility])[address] [place] [address] [place] aPTT Coag (Bld) [Time] 56.5 s High 20.0-30.5 [facility] Comment on above: Result Comment: ARPAN Kaplan COMMENTS:NOTE: The therapeutic time for Heparin anticoagulation, based on Xa activity inhibition, is an APTT of 46-80 seconds. Performed By: #### L AB325 ####Recycling Coordinator: DOMENICA JARA ([id number])[facility] [place] [address] [place] aPTT Coag (Bld) [Time] 44.7 s High 20.0-30.5 [facility] Comment on above: Result Comment: ARPAN Kaplan COMMENTS:NOTE: The therapeutic time for Heparin anticoagulation, based on Xa activity inhibition, is an APTT of 46-80 seconds. Performed By: #### L AB320, [id number] ####Recycling Coordinator: DOMENICA JARA ([id number])[facility])[address] [place] [address] BASIC METABOLIC PANELon 06-0 Anion gap [Moles/Vol] 11 mmol/L Normal 3-13 [facility] Comment on above: Performed By: #### L AB15 ####Recycling Coordinator: DOMENICA JARA ([id number])[facility])[address] [place] [address] Calcium [Mass/Vol] 9.2 mg/dL Normal 8.4-10.2 [facility] Comment on above: Performed By: #### L AB15 ####Recycling Coordinator: DOMENICA JARA ([id number])[facility])[address] [place] [address] [place] Chloride [Moles/Vol] 102 mmol/L Normal 98-107 [facility] Comment on above: Performed By: #### L AB15 ####Recycling Coordinator: DOMENICA JARA ([id number])[facility] ([facility])[address] [place] [address] CO2 [Moles/Vol] 26 mmol/L Normal 22-29 [facility] Comment on above: Performed By: #### L AB15 ####Recycling Coordinator: DOMENICA JARA ([id number])[facility])[address] [place] [address] Creatinine [Mass/Vol] 2.53 mg/dL High 0.72-1.25 [facility] Comment on above: Performed By: #### L AB15 ####Recycling Coordinator: DOMENICA JARA ([phone])[facility])[address] [place] [address] [place] GLOMERULAR FILTRATION RATE ML/MIN/1.73 SQ M.PREDICTED 28.5 mL/min/1.73m*2 Low >60.0 [facility] Comment on above: Result Comment: Calc ulation based on the Chronic Kidney Disease Epidemiology Collaboration (CKD-EPI) equation refit without adjustment for race Performed By: #### L AB15 ####Recycling Coordinator: DOMENICA JARA ([id number])[facility])[address] [place] [address] [place] Glucose [Mass/Vol] 107 mg/dL High 74-100 [facility] Comment on above: Performed By: #### L AB15 ####Recycling Coordinator: DOMENICA JARA ([id number])[facility])[address] [place] [address] Potassium [Moles/Vol] 4.6 mmol/L Normal 3.5-5.1 [facility] Comment on above: Result Comment: [facility] potassium values may be up to 0.5 mmol/L lower than serum values. Performed By: #### L AB15 ####Recycling Coordinator: DOMENICA JARA ([id number])[facility] ([facility])[address] [place] [address] [place] Sodium [Moles/Vol] 139 mmol/L Normal 136-145 [facility] Comment on above: Performed By: #### L AB15 ####Recycling Coordinator: DOMENICA JARA ([id number])[facility] ([facility])[address] [place] [address] [place] Urea nitrogen [Mass/Vol] 16 mg/dL Normal 9-23 [facility] Comment on above: Performed By: #### L AB15 ####Recycling Coordinator: DOMENICA JARA ([id number])[facility])[address] [place] [address] Basic metabolic 1998 panelon 03-02-2025 Anion gap [Moles/Vol] 11 mmol/L 3 - 13 mmol/L [facility] Calcium [Mass/Vol] 9.2 mg/dL 8.4 - 10. 2 mg/dL [facility] Chloride [Moles/Vol] 102 mmol/L 98 - 10 7 mmol/L [facility] CO2 [Moles/Vol] 26 mmol/L 22 - 29 mmol/L [facility] Creatinine [Mass/Vol] 2.53 mg/dL High 0.72 - 1.25 mg/dL [facility] GFR/1.73 sq M.predicted (S/P/Bld) [Vol rate/Area] 28.5 mL/min Low - PINF [facility] Glucose [Mass/Vol] 107 mg/dL High 74 - 100 mg/dL [facility] Interpretation and review of laboratory results Abnormal [facility] Potassium [Moles/Vol] 4.6 mmol/L 3.5 - 5.1 mmol/L [facility] Sodium [Moles/Vol] 139 mmol/L 136 - 145 mmol/L [facility] Urea nitrogen [Mass/Vol] 16 mg/dL 9 - 23 mg/d L [facility] CBC (HEMOGRAM)on 03-02-2025 Erythrocyte distribution width (RBC) [Ratio] 20.1 % High 11.5-15.0 [facility] Comment on above: Performed By: #### L [id number] ####Recycling Coordinator: DOMENICA JARA ([id number])[facility] ([facility])[address] [place] [address] Hematocrit (Bld) [Volume fraction] 25.4 % Low 40.0-52.0 [facility] Comment on above: Performed By: #### L [id number] ####Recycling Coordinator: DOMENICA JARA ([id number])[facility])[address] [place] [address] Hemoglobin (Bld) [Mass/Vol] 7.7 g/dL Low 13.0-18.0 [facility] Comment on above: Performed By: #### L [id number] ####Recycling Coordinator: DOMENICA JARA ([phone])[facility])[address] [place] [address] IPF 2 Normal [facility] Comment on above: Performed By: #### L [id number] ####Recycling Coordinator: DOMENICA JARA ([id number])[facility])[address] [place] [address] MCH (RBC) [Entitic mass] 29.7 pg Normal 26.0-34.0 [facility] Comment on above: Performed By: #### L [id number] ####Recycling Coordinator: DOMENICA JARA ([id number])[facility])[address] [place] [address] MCHC 30.3 % Low 30.5-36.0 [facility] Comment on above: Performed By: #### L [id number] ####Recycling Coordinator: DOMENICA JARA ([id number])[facility] ([facility])[address] [place] [address] MCV (RBC) [Entitic vol] 98.1 fL Normal 77.0-99.0 [facility] Comment on above: Performed By: #### L [id number] ####Recycling Coordinator: DOMENICA JARA ([id number])[facility])[address] [place] [address] Platelet mean volume (Bld) [Entitic vol] 9.0 fL Normal 9.0-12.7 [facility] Comment on above: Performed By: #### L [id number] ####Recycling Coordinator: DOMENICA JARA ([id number])[facility])[address] [place] [address] Platelets (Bld) [#/Vol] 354 10*3/uL Normal 140-440 [facility] Comment on above: Performed By: #### L [id number] ####Recycling Coordinator: DOMENICA JARA ([id number])[facility])[address] [place] [address] RBC (Bld) [#/Vol] 2.59 10*6/uL Low 4.40-5.90 [facility] Comment on above: Performed By: #### L [id number] ####Recycling Coordinator: DOMENICA JARA ([id number])[facility] ([facility])[address] [place] [address] WBC (Bld) [#/Vol] 7.4 10*3/uL Normal 3.6-10.7 [facility] Comment on above: Performed By: #### L [id number] ####Recycling Coordinator: DOMENICA JARA ([id number])[facility] [place] [address] CBC panel Auto (Bld)Ordered By: Callie Steele on 03-02-2025 Erythrocyte distribution width (RBC) [Ratio] 20.1 % High 11.5 - 15.0 % [facility] Hematocrit (Bld) [Volume fraction] 25.4 % Low 40.0 - 52.0 % [facility] Hemoglobin (Bld) [Mass/Vol] 7.7 g/dL Low 13.0 - 18.0 g/dL [facility] Interpretation and review of laboratory results Abnormal [facility] IPF 2 [facility] MCH (RBC) [Entitic mass] 29.7 pg 26. 0 - 34.0 pg [facility] MCHC (RBC) [Mass/Vol] 30.3 % Low 30.5 - 36.0 % [facility] MCV (RBC) [Entitic vol] 98.1 fL 77.0 - 99.0 fL [facility] Platelet mean volume (Bld) [Entitic vol] 9 fL 9.0 - 12.7 fL [facility] Platelets (Bld) [#/Vol] 354 10*3/uL 140 - 440 10*3/uL [facility] RBC (Bld) [#/Vol] 2.59 10*6/uL Low 4.40 - 5.9 0 10*6/uL [facility] WBC (Bld) [#/Vol] 7.4 10*3/uL 3.6 - 10.7 10*3/uL [facility] Laboratory - Coagulationon 0 03-02-2025 PT Coag (Bld) [Time] 14.7 s High 9.0 - 12.0 s [facility] No Panel Informationon 03-02 Interpretation and review of laboratory results Abnormal [facility] PROTHROMBIN TIMEon INR Coag (PPP) [Relative time] 1.4 {INR} High 0.9-1.1 [facility] Comment on above: Result Comment: Vaughn [...] Myocardial Infarction Performed By: #### Tameka AB320, [id number] ####Recycling Coordinator: DOMENICA JARA ([phone])[facility])[address] [place] [address] PT Coag (PPP) [Time] 14.7 s High 9.0-12.0 [facility] Comment on above: Performed By: #### Tameka AB320, [id number] ####Recycling Coordinator: DOMENICA JARA ([id number])[facility])[address] [place] [address] PT Coag (Bld) [Time]on 03-02 INR Coag (PPP) [Relative time] 1.4 {INR} High 0.9 - 1.1 [facility] Progress Noteon 03-02-2025 Progress Note Normal [facility] Progress Note Normal [facility] Note [facility] aPTT Coag (Bld) [Time]on aPTT Coag (PPP) [Time] 68.9 s High 20.0 - 30.5 s [facility] Interpretation and review of laboratory results Abnormal [facility] aPTT Coag (PPP) [Time] 44.7 s High 20.0 - 30.5 s [facility] Interpretation and review of laboratory results Abnormal [facility] aPTT Coag (PPP) [Time] 56.5 s High 20.0 - 30.5 s [facility] Interpretation and review of laboratory results Abnormal [facility] aPTT Coag (PPP) [Time] 44.7 s High 20.0 - 30.5 s [facility] 30on 03-01-2025 30 Normal [facility] [id number] 03-01-2025 [id number] Discharge med list and updated notes transmitted to [facility] via [facility] per TCC request. Normal [facility] [id number] Normal [facility] APTTon 03-01-2025 aPTT Coag (Bld) [Time] 51.3 s High 20.0-30.5 [facility] Comment on above: Result Comment: ARPAN Kaplan COMMENTS:NOTE: The therapeutic time for Heparin anticoagulation, based on Xa activity inhibition, is an APTT of 46-80 seconds. Performed By: #### L AB320, [id number] ####Recycling Coordinator: DOMENICA JARA ([id number])[facility])[address] [place] [address] BASIC METABOLIC PANELon 06-0 Anion gap [Moles/Vol] 13 mmol/L Normal 3-13 [facility] Comment on above: Performed By: #### L AB15 ####Recycling Coordinator: DOMENICA JARA ([id number])[facility] ([facility])[address] [place] [address] [place] Calcium [Mass/Vol] 9.6 mg/dL Normal 8.4-10.2 [facility] Comment on above: Performed By: #### L AB15 ####Recycling Coordinator: DOMENICA JARA ([id number])[facility] ([facility])[address] [place] [address] Chloride [Moles/Vol] 102 mmol/L Normal 98-107 [facility] Comment on above: Performed By: #### L AB15 ####Recycling Coordinator: DOMENICA JARA ([id number])[facility] ([facility])[address] [place] [address] CO2 [Moles/Vol] 23 mmol/L Normal 22-29 [facility] Comment on above: Performed By: #### L AB15 ####Recycling Coordinator: DOMENICA JARA ([id number])[facility])[address] [place] [address] Creatinine [Mass/Vol] 3.73 mg/dL High 0.72-1.25 [facility] Comment on above: Performed By: #### L AB15 ####Recycling Coordinator: DOMENICA JARA ([id number])[facility])[address] [place] [address] GLOMERULAR FILTRATION RATE ML/MIN/1.73 SQ M.PREDICTED 17.9 mL/min/1.73m*2 Low >60.0 [facility] Comment on above: Result Comment: Calc ulation based on the Chronic Kidney Disease Epidemiology Collaboration (CKD-EPI) equation refit without adjustment for race Performed By: #### L AB15 ####Recycling Coordinator: DOMENICA JARA ([id number])[facility])[address] [place] [address] Glucose [Mass/Vol] 87 mg/dL Normal 74-100 [facility] Comment on above: Performed By: #### L AB15 ####Recycling Coordinator: DOMENICA JARA ([id number])[facility])[address] [place] [address] Potassium [Moles/Vol] 5.8 mmol/L High 3.5-5.1 [facility] Comment on above: Result Comment: [facility] potassium values may be up to 0.5 mmol/L lower than serum values. Performed By: #### L AB15 ####Recycling Coordinator: DOMENICA JARA ([id number])[facility])[address] [place] [address] Sodium [Moles/Vol] 138 mmol/L Normal 136-145 [facility] Comment on above: Performed By: #### L AB15 ####Recycling Coordinator: DOMENICA JARA ([id number])[facility])[address] [place] [address] Urea nitrogen [Mass/Vol] 28 mg/dL High 9-23 [facility] Comment on above: Performed By: #### L AB15 ####Recycling Coordinator: DOMENICA JARA ([id number])[facility])[address] [place] [address] Basic metabolic 1998 panelon 03-01-2025 Anion gap [Moles/Vol] 13 mmol/L 3 - 13 mmol/L [facility] Calcium [Mass/Vol] 9.6 mg/dL 8.4 - 10. 2 mg/dL [facility] Chloride [Moles/Vol] 102 mmol/L 98 - 10 7 mmol/L [facility] CO2 [Moles/Vol] 23 mmol/L 22 - 29 mmol/L [facility] Creatinine [Mass/Vol] 3.73 mg/dL High 0.72 - 1.25 mg/dL [facility] GFR/1.73 sq M.predicted (S/P/Bld) [Vol rate/Area] 17.9 mL/min Low - PINF [facility] Glucose [Mass/Vol] 87 mg/dL 74 - 100 mg/dL [facility] Interpretation and review of laboratory results Abnormal [facility] Potassium [Moles/Vol] 5.8 mmol/L High 3.5 - 5.1 mmol/L [facility] Sodium [Moles/Vol] 138 mmol/L 136 - 145 mmol/L [facility] Urea nitrogen [Mass/Vol] 28 mg/dL High 9 - 23 mg/d L [facility] CBC (HEMOGRAM)on 03-01-2025 Erythrocyte distribution width (RBC) [Ratio] 19.7 % High 11.5-15.0 [facility] Comment on above: Performed By: #### L [id number] ####Recycling Coordinator: DOMENICA JARA ([id number])[facility] ([facility])[address] [place] [address] Hematocrit (Bld) [Volume fraction] 26.9 % Low 40.0-52.0 [facility] Comment on above: Performed By: #### L AB294 ####Recycling Coordinator: DOMENICA JARA ([id number])[facility])[address] [place] [address] Hemoglobin (Bld) [Mass/Vol] 8.0 g/dL Low 13.0-18.0 [facility] Comment on above: Performed By: #### L AB294 ####Recycling Coordinator: DOMENICA JARA ([id number])[facility])[address] [place] [address] MCH (RBC) [Entitic mass] 28.8 pg Normal 26.0-34.0 [facility] Comment on above: Performed By: #### L AB294 ####Recycling Coordinator: DOMENICA JARA ([id number])[facility])[address] [place] [address] MCHC 29.7 % Low 30.5-36.0 [facility] Comment on above: Performed By: #### L AB294 ####Recycling Coordinator: DOMENICA JARA ([id number])[facility])[address] [place] [address] MCV (RBC) [Entitic vol] 96.8 fL Normal 77.0-99.0 S [facility] Comment on above: Performed By: #### L AB294 ####Recycling Coordinator: DOMENICA JARA ([id number])[facility])[address] [place] [address] Platelet mean volume (Bld) [Entitic vol] 8.7 fL Low 9.0-12.7 [facility] Comment on above: Performed By: #### L AB294 ####Recycling Coordinator: DOMENICA JARA ([id number])[facility])[address] [place] [address] Platelets (Bld) [#/Vol] 306 10*3/uL Normal 140-440 [facility] Comment on above: Performed By: #### L AB294 ####Recycling Coordinator: DOMENICA JARA ([id number])[facility])[address] [place] [address] RBC (Bld) [#/Vol] 2.78 10*6/uL Low 4.40-5.90 [facility] Comment on above: Performed By: #### L AB294 ####Recycling Coordinator: DOMENICA JARA ([id number])[facility] ([facility])[address] [place] [address] WBC (Bld) [#/Vol] 7.5 10*3/uL Normal 3.6-10.7 [facility] Comment on above: Performed By: #### L [id number] ####Recycling Coordinator: DOMENICA JARA ([id number])[facility] ([facility])[address] [place] [address] CBC panel Auto (Bld)on 03-01 Erythrocyte distribution width (RBC) [Ratio] 19.7 % High 11.5 - 15.0 % [facility] Hematocrit (Bld) [Volume fraction] 26.9 % Low 40.0 - 52.0 % [facility] Hemoglobin (Bld) [Mass/Vol] 8 g/dL Low 13.0 - 18.0 g/dL [facility] Interpretation and review of laboratory results Abnormal [facility] MCH (RBC) [Entitic mass] 28.8 pg 26. 0 - 34.0 pg [facility] MCHC (RBC) [Mass/Vol] 29.7 % Low 30.5 - 36.0 % [facility] MCV (RBC) [Entitic vol] 96.8 fL 77.0 - 99.0 fL [facility] Platelet mean volume (Bld) [Entitic vol] 8.7 fL Low 9.0 - 12.7 fL [facility] Platelets (Bld) [#/Vol] 306 10*3/uL 140 - 440 10*3/uL [facility] RBC (Bld) [#/Vol] 2.78 10*6/uL Low 4.40 - 5.9 0 10*6/uL [facility] WBC (Bld) [#/Vol] 7.5 10*3/uL 3.6 - 10.7 10*3/uL [facility] Laboratory - Coagulationon 0 6-05-2025 PT Coag (Bld) [Time] 14.3 s High 9.0 - 12.0 s [facility] No Panel Informationon 03-01 Interpretation and review of laboratory results Abnormal [facility] Nursing Noteon 03-01-2025 Nursing Note Normal [facility] PROTHROMBIN TIMEon INR Coag (PPP) [Relative time] 1.4 {INR} High 0.9-1.1 [facility] Comment on above: Result Comment: Vaughn [...] Myocardial Infarction Performed By: #### Tameka AB320, [id number] ####Recycling Coordinator: DOMENICA JARA ([id number])[facility] ([facility])[address] [place] [address] PT Coag (PPP) [Time] 14.3 s High 9.0-12.0 [facility] Comment on above: Performed By: #### Tameka AB320, [id number] ####Recycling Coordinator: DOMENICA JARA ([id number])[facility] ([facility])[address] [place] [address] PT Coag (Bld) [Time]on 03-01 INR Coag (PPP) [Relative time] 1.4 {INR} High 0.9 - 1.1 [facility] Progress Noteon 03-01-2025 Progress Note Normal [facility] Progress Note Normal [facility] Progress [facility] Normal [facility] Progress Note Normal [facility] Progress Note PHYSICAL THERAPY [facility] Name/MRN: Jair Snyder ([id number]) Date: 03/01/2025 Leaving for dialysis. Return later time/date for PT. Merleneclau León PTA Normal [facility] Progress Note Normal [facility] aPTT Coag (Bld) [Time]on aPTT Coag (PPP) [Time] 51.3 s High 20.0 - 30.5 s [facility] 30on 02-28-2025 30 Normal [facility] 30 Normal [facility] [id number] 02-28-2025 [id number] Auth is back however can not discharge still on hep gtt- auth good thru 03/02- hoping by Wednesday AM . Updated snf . [facility] [phone] Transport requested in [employer] in will call per TCC. [facility] [phone] Tasked [employer]HER to set up transport in will call, not ready for DC, Auth pending Normal [facility] APTTon 02-28-2025 aPTT Coag (Bld) [Time] 47.7 s High 20.0-30.5 [facility] Comment on above: Result Comment: ARPAN Kaplan COMMENTS:NOTE: The therapeutic time for Heparin anticoagulation, based on Xa activity inhibition, is an APTT of 46-80 seconds. Performed By: #### L AB325, [id number] ####Recycling Coordinator: DOMENICA JARA ([phone])[facility] ([address] BASIC METABOLIC PANELon 06 Anion gap [Moles/Vol] 11 mmol/L Normal 3-13 [facility] Comment on above: Performed By: #### L AB15 ####Recycling Coordinator: DOMENICA JARA ([id number])[address] Calcium [Mass/Vol] 9.3 mg/dL Normal 8.4-10.2 [facility] Comment on above: Performed By: #### L AB15 ####Recycling Coordinator: DOMENICA [id number])[facility])[address] [place] [address] Chloride [Moles/Vol] 100 mmol/L Normal 98-107 [facility] Comment on above: Performed By: #### L AB15 ####Recycling Coordinator: DOMENICA JARA ([id number])[facility])[address] [place] [address] CO2 [Moles/Vol] 27 mmol/L Normal 22-29 [facility] Comment on above: Performed By: #### L AB15 ####Recycling Coordinator: DOMENICA JARA ([id number])[facility])[address] [place] [address] Creatinine [Mass/Vol] 3.06 mg/dL High 0.72-1.25 [facility] Comment on above: Performed By: #### L AB15 ####Recycling Coordinator: DOMENICA JARA ([id number])[facility] ([facility])[address] [place] [address] GLOMERULAR FILTRATION RATE ML/MIN/1.73 SQ M.PREDICTED 22.7 mL/min/1.73m*2 Low >60.0 [facility] Comment on above: Result Comment: Calc ulation based on the Chronic Kidney Disease Epidemiology Collaboration (CKD-EPI) equation refit without adjustment for race Performed By: #### L AB15 ####Recycling Coordinator: DOMENICA JARA ([id number])[facility])[address] [place] [address] Glucose [Mass/Vol] 94 mg/dL Normal 74-100 [facility] Comment on above: Performed By: #### L AB15 ####Recycling Coordinator: DOMENICA JARA ([id number])[facility])[address] [place] [address] Potassium [Moles/Vol] 5.0 mmol/L Normal 3.5-5.1 [facility] Comment on above: Result Comment: [facility] potassium values may be up to 0.5 mmol/L lower than serum values. Performed By: #### L AB15 ####Recycling Coordinator: DOMENICA JARA ([id number])[facility] ([facility])[address] [place] [address] Sodium [Moles/Vol] 138 mmol/L Normal 136-145 [facility] Comment on above: Performed By: #### L AB15 ####Recycling Coordinator: DOMENICA JARA ([id number])[facility])[address] [place] [address] Urea nitrogen [Mass/Vol] 19 mg/dL Normal 9-23 [facility] Comment on above: Performed By: #### L AB15 ####Recycling Coordinator: DOMENICA JARA ([id number])[facility])[address] [place] [address] Basic metabolic 1998 panelon 02-28-2025 Anion gap [Moles/Vol] 11 mmol/L 3 - 13 mmol/L [facility] Calcium [Mass/Vol] 9.3 mg/dL 8.4 - 10. 2 mg/dL [facility] Chloride [Moles/Vol] 100 mmol/L 98 - 10 7 mmol/L [facility] CO2 [Moles/Vol] 27 mmol/L 22 - 29 mmol/L [facility] Creatinine [Mass/Vol] 3.06 mg/dL High 0.72 - 1.25 mg/dL [facility] GFR/1.73 sq M.predicted (S/P/Bld) [Vol rate/Area] 22.7 mL/min Low - PINF [facility] Glucose [Mass/Vol] 94 mg/dL 74 - 100 mg/dL [facility] Interpretation and review of laboratory results Abnormal [facility] Potassium [Moles/Vol] 5 mmol/L 3.5 - 5.1 mmol/L [facility] Sodium [Moles/Vol] 138 mmol/L 136 - 145 mmol/L [facility] Urea nitrogen [Mass/Vol] 19 mg/dL 9 - 23 mg/d L [facility] CBC (HEMOGRAM)on 02-28-2025 Erythrocyte distribution width (RBC) [Ratio] 19.8 % High 11.5-15.0 [facility] Comment on above: Performed By: #### L AB294 ####Recycling Coordinator: DOMENICA JARA ([id number])[facility])[address] [place] [address] Hematocrit (Bld) [Volume fraction] 26.9 % Low 40.0-52.0 [facility] Comment on above: Performed By: #### L AB294 ####Recycling Coordinator: DOMENICA JARA ([id number])[facility])[address] [place] [address] Hemoglobin (Bld) [Mass/Vol] 8.2 g/dL Low 13.0-18.0 [facility] Comment on above: Performed By: #### L AB294 ####Recycling Coordinator: DOMENICA JARA ([id number])[facility])[address] [place] [address] MCH (RBC) [Entitic mass] 29.3 pg Normal 26.0-34.0 [facility] Comment on above: Performed By: #### L AB294 ####Recycling Coordinator: DOMENICA JARA ([id number])[facility] ([facility])[address] [place] [address] MCHC 30.5 % Normal 30.5-36.0 [facility] Comment on above: Performed By: #### L AB294 ####Recycling Coordinator: DOMENICA JARA ([id number])[facility] ([facility])[address] [place] [address] MCV (RBC) [Entitic vol] 96.1 fL Normal 77.0-99.0 [facility] Comment on above: Performed By: #### L AB294 ####Recycling Coordinator: DOMENICA JARA ([id number])[facility] ([facility])[address] [place] [address] Platelet mean volume (Bld) [Entitic vol] 9.0 fL Normal 9.0-12.7 [facility] Comment on above: Performed By: #### L AB294 ####Recycling Coordinator: DOMENICA JARA ([id number])[facility])[address] [place] [address] [place] Platelets (Bld) [#/Vol] 324 10*3/uL Normal 140-440 [facility] Comment on above: Performed By: #### L AB294 ####Recycling Coordinator: DOMENICA JARA ([id number])[facility])[address] [place] [address] RBC (Bld) [#/Vol] 2.80 10*6/uL Low 4.40-5.90 [facility] Comment on above: Performed By: #### L AB294 ####Recycling Coordinator: DOMENICA JARA ([id number])[facility] ([facility])[address] [place] [address] WBC (Bld) [#/Vol] 8.0 10*3/uL Normal 3.6-10.7 [facility] Comment on above: Performed By: #### L AB294 ####Recycling Coordinator: DOMENICA JARA ([id number])[address] CBC panel Auto (Bld)Ordered By: Giancarlo Lakhani on 02-28-2025 Erythrocyte distribution width (RBC) [Ratio] 19.8 % High 11.5 - 15.0 % [facility] Hematocrit (Bld) [Volume fraction] 26.9 % Low 40.0 - 52.0 % [facility] Hemoglobin (Bld) [Mass/Vol] 8.2 g/dL Low 13.0 - 18.0 g/dL [facility] Interpretation and review of laboratory results Abnormal [facility] MCH (RBC) [Entitic mass] 29.3 pg 26. 0 - 34.0 pg [facility] MCHC (RBC) [Mass/Vol] 30.5 % 30.5 - 36.0 % [facility] MCV (RBC) [Entitic vol] 96.1 fL 77.0 - 99.0 fL [facility] Platelet mean volume (Bld) [Entitic vol] 9 fL 9.0 - 12.7 fL [facility] [facility] Platelets (Bld) [#/Vol] 324 10*3/uL 140 - 440 10*3/uL [facility] RBC (Bld) [#/Vol] 2.8 10*6/uL Low 4.40 - 5.9 0 10*6/uL [facility] WBC (Bld) [#/Vol] 8 10*3/uL 3.6 - 10.7 10*3/uL [facility] Laboratory - Coagulationon 0 02-28-2025 PT Coag (Bld) [Time] 14 s High 9.0 - 12.0 s [facility] No Panel Informationon 02-28 Interpretation and review of laboratory results Abnormal [facility] Nursing Noteon 02-28-2025 Nursing Note Normal [facility] PROTHROMBIN TIMEon INR Coag (PPP) [Relative time] 1.3 {INR} High 0.9-1.1 [facility] Comment on above: Result Comment: Vaughn [...] Myocardial Infarction Performed By: #### Tameka AB325, [id number] ####Recycling Coordinator: DOMENICA JARA ([id number])[address] PT Coag (PPP) [Time] 14.0 s High 9.0-12.0 [facility] Comment on above: Performed By: #### Tameka AB325, [id number] ####Recycling Coordinator: DOMENICA JARA ([id number])[facility] ([facility])[address] [place] [address] PT Coag (Bld) [Time]on 02-28 INR Coag (PPP) [Relative time] 1.3 {INR} High 0.9 - 1.1 [facility] Progress Noteon 02-28-2025 Progress Note Normal [facility] Note Normal [facility] Progress Note Normal [facility] Progress [facility] Normal [facility] aPTT Coag (Bld) [Time]on aPTT Coag (PPP) [Time] 47.7 s High 20.0 - 30.5 s [facility] 30on 02-27-2025 30 Normal [facility] 30 Normal [facility] [id number] 02-27-2025 [id number] Normal [facility] APTTon 02-27-2025 aPTT Coag (Bld) [Time] 55.6 s High 20.0-30.5 [facility] Comment on above: Result Comment: ARPAN Kaplan COMMENTS:NOTE: The therapeutic time for Heparin anticoagulation, based on Xa activity inhibition, is an APTT of 46-80 seconds. Performed By: #### L AB325, [id number] ####Recycling Coordinator: DOMENICA JARA ([id number])[facility])[address] [place] [address] Bacteria identified Cx Nom ( Bld)on 02-27-2025 Interpretation and review of laboratory results Normal [facility] Interpretation and review of laboratory results Normal [facility] CBC (HEMOGRAM)on 02-27-2025 Erythrocyte distribution width (RBC) [Ratio] 19.5 % High 11.5-15.0 [facility] Comment on above: Performed By: #### L [id number] ####Recycling Coordinator: DOMENICA JARA ([id number])[address] Hematocrit (Bld) [Volume fraction] 28.8 % Low 40.0-52.0 [facility] Comment on above: Performed By: #### L [id number] ####Recycling Coordinator: DOMENICA JARA ([id number])[facility] ([facility])[address] [place] [address] Hemoglobin (Bld) [Mass/Vol] 8.6 g/dL Low 13.0-18.0 [facility] Comment on above: Performed By: #### L [id number] ####Recycling Coordinator: DOMENICA [id number])[facility])[address] [place] [address] MCH (RBC) [Entitic mass] 28.7 pg Normal 26.0-34.0 [facility] Comment on above: Performed By: #### L [id number] ####Recycling Coordinator: DOMENICA JARA ([id number])[facility] ([facility])[address] [place] [address] MCHC 29.9 % Low 30.5-36.0 [facility] Comment on above: Performed By: #### L [id number] ####Recycling Coordinator: DOMENICA JARA ([id number])[facility] ([facility])[address] [place] [address] MCV (RBC) [Entitic vol] 96.0 fL Normal 77.0-99.0 S [facility] Comment on above: Performed By: #### L [id number] ####Recycling Coordinator: DOMENICA JARA ([id number])[facility] ([facility])[address] [place] [address] Platelet mean volume (Bld) [Entitic vol] 8.9 fL Low 9.0-12.7 [facility] Comment on above: Performed By: #### L [id number] ####Recycling Coordinator: DOMENICA JARA ([id number])[facility] ([facility])[address] [place] [address] Platelets (Bld) [#/Vol] 302 10*3/uL Normal 140-440 [facility] Comment on above: Performed By: #### L [id number] ####Recycling Coordinator: DOMENICA JARA ([id number])[facility] ([facility])[address] [place] [address] RBC (Bld) [#/Vol] 3.00 10*6/uL Low 4.40-5.90 [facility] Comment on above: Performed By: #### L [id number] ####Recycling Coordinator: DOMENICA JARA ([id number])[facility] ([facility])[address] [place] [address] WBC (Bld) [#/Vol] 7.9 10*3/uL Normal 3.6-10.7 [facility] Comment on above: Performed By: #### L [id number] ####Recycling Coordinator: DOMENICA JARA ([id number])[facility] ([address] CBC panel Auto (Bld)Ordered By: Brandy Ross on 02-27-2025 Erythrocyte distribution width (RBC) [Ratio] 19.5 % High 11.5 - 15.0 % [facility] Hematocrit (Bld) [Volume fraction] 28.8 % Low 40.0 - 52.0 % [facility] Hemoglobin (Bld) [Mass/Vol] 8.6 g/dL Low 13.0 - 18.0 g/dL [facility] Interpretation and review of laboratory results Abnormal [facility] MCH (RBC) [Entitic mass] 28.7 pg 26. 0 - 34.0 pg [facility] MCHC (RBC) [Mass/Vol] 29.9 % Low 30.5 - 36.0 % [facility] MCV (RBC) [Entitic vol] 96 fL 77.0 - 99.0 fL [facility] Platelet mean volume (Bld) [Entitic vol] 8.9 fL Low 9.0 - 12.7 fL [facility] Platelets (Bld) [#/Vol] 302 10*3/uL 140 - 440 10*3/uL [facility] RBC (Bld) [#/Vol] 3 10*6/uL Low 4.40 - 5.9 0 10*6/uL [facility] WBC (Bld) [#/Vol] 7.9 10*3/uL 3.6 - 10.7 10*3/uL [facility] ECG 12-LEADon 02-27-2025 ECG 12-LEAD IMPRESSION: Sinus rhythm Left atrial enlargement RBBB and LPFB Abnrm T, consider ischemia, anterolateral lds Compared to ECG 01/19/2025 06:31:48 Prolonged QT interval no longer present Electronically Signed On 02-27-2025 16:08:17 EDT by Ochoa Guido Normal [facility] Laboratory - Coagulationon 0 02-27-2025 PT Coag (Bld) [Time] 13.7 s High 9.0 - 12.0 s [facility] Laboratory - Microbiology an d Antimicrobial susceptibilityon 02-27-2025 Bacteria identified Cx Nom (Bld) No growth at 5 days [facility] Bacteria identified Cx Nom (Bld) No growth at 5 days [facility] No Panel InformationOrdered By: Ochoa Guido on 02-27-2025 P Tiona 76 degrees [facility] Work Phone: UT Interval 150 ms [facility] Work Phone: QRS Tiona 92 degrees [facility] Work Phone: QRSD Interval 124 ms [facility] Work Phone: QT Interval 417 ms [facility] Work Phone: QTC Interval 482 ms [facility] Work Phone: T Wave Tiona 95 degrees [facility] Work Phone: [facility] Work Phone: No Panel Informationon 02-27 CV EPIPHANY [facility] Interpretation and review of laboratory results Abnormal [facility] Nursing Noteon 02-27-2025 Nursing Note Normal [facility] Nursing Note Normal [facility] PROTHROMBIN TIMEon INR Coag (PPP) [Relative time] 1.3 {INR} High 0.9-1.1 [facility] Comment on above: Result Comment: Vaughn [...] Myocardial Infarction Performed By: #### L [id number], [id number] ####Recycling Coordinator: DOMENICA JARA ([id number])[facility] ([address] PT Coag (PPP) [Time] 13.7 s High 9.0-12.0 [facility] Comment on above: Performed By: #### L AB325, [id number] ####Recycling Coordinator: DOMENICA JARA ([id number])[address] PT Coag (Bld) [Time]on 02-27 INR Coag (PPP) [Relative time] 1.3 {INR} High 0.9 - 1.1 [facility] Progress Noteon 02-27-2025 Progress Note [facility] Progress [facility] Normal [facility] Progress Note Normal [facility] Progress Note Normal [facility] Progress Note Normal [facility] Vital signsOrdered By: Ochoa Guido on 02-27-2025 Heart rate 80 /min bpm [facility] Work Phone: aPTT Coag (Bld) [Time]on aPTT Coag (PPP) [Time] 55.6 s High 20.0 - 30.5 s [facility] 30on 02-26-2025 30 Normal [facility] [id number] 02-26-2025 [id number] Normal [facility] [id number] 02-26-2025 [id number] Getting updated therapy notes. Want to skill him at [facility]. Started on IV antibiotics for aspiration pneumonia. Continues on a heparin gtt. . [facility] [id number] Updated notes sent to [facility] via [facility] per [facility] request. Await review and response regarding ability to accept. [facility] notified. [facility] 36on 02-26-2025 36 Normal [facility] CBC W/Diff, Automatedon Absolute Neut Normal 2.0-7.7 [facility] Comment on above: Order Comment: 413.2 Result Comment: KIMBER ENT DISCHARGED Performed By: #### L 300.3900 #### [facility] [address] [place], [address] HCT Normal 40-54 [facility] Comment on above: Order Comment: 413.2 Result Comment: KIMBER ENT DISCHARGED Performed By: #### L 300.3900 #### [facility] [address] [place], [address] HGB Normal 13.0-16.5 [facility] Comment on above: Order Comment: 413.2 Result Comment: KIMBER ENT DISCHARGED Performed By: #### L 300.3900 #### [facility] [address] [place], [address] MCH Normal 27.0-32.0 [facility] Comment on above: Order Comment: 413.2 Result Comment: KIMBER ENT DISCHARGED Performed By: #### L 300.3900 #### [facility] [address] [place], [address] MCHC Normal 32-36 [facility] Comment on above: Order Comment: 413.2 Result Comment: KIMBER ENT DISCHARGED Performed By: #### L 300.3900 #### [facility] [address] [place], [address] MCV Normal 80-94 [facility] Comment on above: Order Comment: 413.2 Result Comment: KIMBER ENT DISCHARGED Performed By: #### L 300.3900 #### [facility] [address] [place], [address] NEUT% Normal 47-70 [facility] Comment on above: Order Comment: 413.2 Result Comment: KIMBER ENT DISCHARGED Performed By: #### L 300.3900 #### [facility] [address] [place], [address] PLT Normal 150-450 [facility] Comment on above: Order Comment: 413.2 Result Comment: KIMBER ENT DISCHARGED Performed By: #### L 300.3900 #### [facility] [address] [place], [address] RBC Normal 4.6-6.2 [facility] Comment on above: Order Comment: 413.2 Result Comment: KIMBER ENT DISCHARGED Performed By: #### L 300.3900 #### [facility] [address] [place], [address] RDW CV Normal 11.6-14.6 [facility] Comment on above: Order Comment: 413.2 Result Comment: KIMBER ENT DISCHARGED Performed By: #### L 300.3900 #### [facility] [address] [place], [address] RDW SD Normal 35.1-43.9 [facility] Comment on above: Order Comment: 413.2 Result Comment: KIMBER ENT DISCHARGED Performed By: #### L 300.3900 #### [facility] [address] [place], [address] WBC Normal 4.4-11.0 [facility] Comment on above: Order Comment: 413.2 Result Comment: KIMBER ENT DISCHARGED Performed By: #### L 300.3900 #### [facility] [address] [place], [address] Comprehensive Metabolic Prof ilon 02-26-2025 ALB Normal 3.5-5.0 [facility] Comment on above: Order Comment: 413.2 Result Comment: KIMBER ENT DISCHARGED Performed By: #### L 300.3900 #### [facility] [address] [place], [address] ALK PHOS Normal 40-129 [facility] Comment on above: Order Comment: 413.2 Result Comment: KIMBER ENT DISCHARGED Performed By: #### L 300.3900 #### [facility] [address] [place], [address] ALT Normal <=46 [facility] Comment on above: Order Comment: 413.2 Result Comment: KIMBER ENT DISCHARGED Performed By: #### L 300.3900 #### [facility] [address] [place], [address] AST Normal <=37 [facility] Comment on above: Order Comment: 413.2 Result Comment: KIMBER ENT DISCHARGED Performed By: #### L 300.3900 #### [facility] [address] [place], [address] BUN Normal 4-19 [facility] Comment on above: Order Comment: 413.2 Result Comment: KIMBER ENT DISCHARGED Performed By: #### L 300.3900 #### [facility] [address] [place], [address] BUN/CRE Normal 10-20 [facility] Comment on above: Order Comment: 413.2 Result Comment: KIMBER ENT DISCHARGED Performed By: #### L 300.3900 #### [facility] [address] [place], [address] Calcium Normal 7.6-11.0 [facility] Comment on above: Order Comment: 413.2 Result Comment: KIMBER ENT DISCHARGED Performed By: #### L 300.3900 #### [facility] [address] [place], [address] CL Normal 98-108 [facility] Comment on above: Order Comment: 413.2 Result Comment: KIMBER ENT DISCHARGED Performed By: #### L 300.3900 #### [facility] [address] [place], [address] CO2 Normal 21.0-32.0 [facility] Comment on above: Order Comment: 413.2 Result Comment: KIMBER ENT DISCHARGED Performed By: #### L 300.3900 #### [facility] [address] [place], [address] CREAT,SERUM Normal 0.70-1.20 [facility] Comment on above: Order Comment: 413.2 Result Comment: KIMBER ENT DISCHARGED Performed By: #### L 300.3900 #### [facility] [address] [place], [address] eGFR Normal >60 [facility] Comment on above: Order Comment: 413.2 Result Comment: KIMBER ENT DISCHARGED Performed By: #### L 300.3900 #### [facility] [address] [place], [address] GAP Normal 5-15 [facility] Comment on above: Order Comment: 413.2 Result Comment: KIMBER ENT DISCHARGED Performed By: #### L 300.3900 #### [facility] [address] [place], [address] GLU Normal 70-99 [facility] Comment on above: Order Comment: 413.2 Result Comment: KIMBER ENT DISCHARGED Performed By: #### L 300.3900 #### [facility] [address] [place], [address] Potassium Normal 3.3-5.1 [facility] Comment on above: Order Comment: 413.2 Result Comment: KIMBER ENT DISCHARGED Performed By: #### L 300.3900 #### [facility] [address] [place], [address] T BILI Normal 0.00-1.30 [facility] Comment on above: Order Comment: 413.2 Result Comment: KIMBER ENT DISCHARGED Performed By: #### L 300.3900 #### [facility] [address] [place], [address] T PROT Normal 5.9-8.4 [facility] Comment on above: Order Comment: 413.2 Result Comment: KIMBER ENT DISCHARGED Performed By: #### L 300.3900 #### [facility] [address] [place], [address] Comprehensive Metabolic Profil Normal 133-145 [facility] Comment on above: Order Comment: 413.2 Result Comment: KIMBER ENT DISCHARGED Performed By: #### L 300.3900 #### [facility] [address] [place], [address] HIGH SENSITIVITY TROPONIN, S ERIAL, SECOND TESTon 02-26-2025 2H TROPONIN HS (SERIAL 2ND TROPONIN) 80 ng/L High <=35 [facility] Comment on above: Result Comment: 2h [...] 3rd serial troponin Performed By: #### L [id number] ####Recycling Coordinator: DOMENICA JARA ([id number])[facility])[address] [place] [address] HIGH SENSITIVITY TROPONIN, S ERIAL, THIRD TESTon 02-26-2025 4H TROPONIN HS (SERIAL 3RD TROPONIN) 75 ng/L High <=35 [facility] Comment on above: Result Comment: 4h [...] valuerequires further evaluation. Performed By: #### L [id number] ####Recycling Coordinator: DOMENICA JARA ([id number])[facility] ([facility])[address] [place] [address] Laboratory - Coagulationon 0 02-26-2025 PT Coag (Bld) [Time] 13.5 s High 9.0 - 12.0 s [facility] No Panel Informationon 02-26 4h Troponin HS (Serial 3rd Troponin) 75 ng/L High NINF - 35 ng/L [facility] Interpretation and review of laboratory results Abnormal [facility] 2h Troponin HS (Serial 2nd Troponin) 80 ng/L High NINF - 35 ng/L [facility] Interpretation and review of laboratory results Abnormal [facility] Interpretation and review of laboratory results Abnormal [facility] Troponin HS Serial Baseline 84 ng/L High NINF - 35 ng/L [facility] Interpretation and review of laboratory results Abnormal [facility] PT Coag (Bld) [Time]on 02-26 INR Coag (PPP) [Relative time] 1.3 {INR} High 0.9 - 1.1 [facility] Progress Noteon 02-26-2025 Progress Note Normal [facility] Progress Note Normal [facility] Progress Note Normal [facility] Normal [facility] Note Normal [facility] Progress Note Normal [facility] Prothrombin Time w/INRon INR Normal [facility] Comment on above: Order Comment: 413.2 Result Comment: KIMBER ENT DISCHARGED Performed By: #### L 300.3900 #### [facility] [address] [place], [place], [id number] PROTIME Normal 11.7-14.9 [facility] Comment on above: Order Comment: 413.2 Result Comment: KIMBER ENT DISCHARGED Performed By: #### L 300.3900 #### [facility] [address] [place], [place], [address] aPTT Coag (Bld) [Time]on aPTT Coag (PPP) [Time] 48.2 s High 20.0 - 30.5 s [facility] 30on 02-25-2025 30 Normal [facility] 30 Normal [facility] APTTon 02-25-2025 aPTT Coag (Bld) [Time] 48.2 s High 20.0-30.5 [facility] Comment on above: Result Comment: ARPAN Kaplan COMMENTS:NOTE: The therapeutic time for Heparin anticoagulation, based on Xa activity inhibition, is an APTT of 46-80 seconds. Performed By: #### L AB325, [id number] ####Recycling Coordinator: DOMENICA JARA ([id number])[facility] ([address] aPTT Coag (Bld) [Time] 49.5 s High 20.0-30.5 [facility] Comment on above: Result Comment: ARPAN Kaplan COMMENTS:NOTE: The therapeutic time for Heparin anticoagulation, based on Xa activity inhibition, is an APTT of 46-80 seconds. Performed By: #### L AB320, [id number] ####Recycling Coordinator: DOMENICA JARA ([id number])[facility])[address] [place] [address] CBC (HEMOGRAM)on 02-25-2025 Erythrocyte distribution width (RBC) [Ratio] 19.9 % High 11.5-15.0 [facility] Comment on above: Performed By: #### L [id number] ####Recycling Coordinator: DOMENICA JARA ([id number])[facility])[address] [place] [address] Hematocrit (Bld) [Volume fraction] 24.1 % Low 40.0-52.0 [facility] Comment on above: Performed By: #### L [id number] ####Recycling Coordinator: DOMENICA JARA ([id number])[facility])[address] [place] [address] Hemoglobin (Bld) [Mass/Vol] 7.6 g/dL Low 13.0-18.0 [facility] Comment on above: Performed By: #### L [id number] ####Recycling Coordinator: DOMENICA JARA ([id number])[facility])[address] [place] [address] MCH (RBC) [Entitic mass] 29.3 pg Normal 26.0-34.0 [facility] Comment on above: Performed By: #### L [id number] ####Recycling Coordinator: DOMENICA JARA ([id number])[address] MCHC 31.5 % Normal 30.5-36.0 [facility] Comment on above: Performed By: #### L [id number] ####Recycling Coordinator: DOMENICA JARA ([id number])[facility])[address] [place] [address] MCV (RBC) [Entitic vol] 93.1 fL Normal 77.0-99.0 [facility] Comment on above: Performed By: #### L [id number] ####Recycling Coordinator: DOMENICA JARA ([id number])[facility])[address] [place] [address] Platelet mean volume (Bld) [Entitic vol] 8.9 fL Low 9.0-12.7 [facility] Comment on above: Performed By: #### L [id number] ####Recycling Coordinator: DOMENICA JARA ([id number])[facility] ([facility])[address] [place] [address] Platelets (Bld) [#/Vol] 280 10*3/uL Normal 140-440 [facility] Comment on above: Performed By: #### L [id number] ####Recycling Coordinator: DOMENICA JARA ([id number])[facility])[address] [place] [address] RBC (Bld) [#/Vol] 2.59 10*6/uL Low 4.40-5.90 [facility] Comment on above: Performed By: #### L [id number] ####Recycling Coordinator: DOMENICA JARA ([id number])[facility] ([facility])[address] [place] [address] WBC (Bld) [#/Vol] 7.5 10*3/uL Normal 3.6-10.7 [facility] Comment on above: Performed By: #### L [id number] ####Recycling Coordinator: DOMENICA JARA ([id number])[facility])[address] [place] [address] CBC panel Auto (Bld)on 02-25 Erythrocyte distribution width (RBC) [Ratio] 19.9 % High 11.5 - 15.0 % [facility] Hematocrit (Bld) [Volume fraction] 24.1 % Low 40.0 - 52.0 % [facility] Hemoglobin (Bld) [Mass/Vol] 7.6 g/dL Low 13.0 - 18.0 g/dL [facility] Interpretation and review of laboratory results Abnormal [facility] MCH (RBC) [Entitic mass] 29.3 pg 26. 0 - 34.0 pg [facility] MCHC (RBC) [Mass/Vol] 31.5 % 30.5 - 36.0 % [facility] MCV (RBC) [Entitic vol] 93.1 fL 77.0 - 99.0 fL [facility] Platelet mean volume (Bld) [Entitic vol] 8.9 fL Low 9.0 - 12.7 fL [facility] Platelets (Bld) [#/Vol] 280 10*3/uL 140 - 440 10*3/uL [facility] RBC (Bld) [#/Vol] 2.59 10*6/uL Low 4.40 - 5.9 0 10*6/uL [facility] WBC (Bld) [#/Vol] 7.5 10*3/uL 3.6 - 10.7 10*3/uL [facility] HIGH SENSITIVITY TROPONIN, S ERIAL BASELINEon 02-25-2025 TROPONIN HS SERIAL BASELINE 84 ng/L High <=35 [facility] Comment on above: Result Comment: In i ndividuals presenting with symptoms > 2h, a baseline troponin <= 5 ng/L suggests acutecardiac injury is unlikely and further serial testing is generally not indicated. Performed By: #### L [id number] ####Recycling Coordinator: DOMENICA JARA ([id number])[facility] ([address] Laboratory - Coagulationon 0 02-25-2025 PT Coag (Bld) [Time] 13.7 s High 9.0 - 12.0 s [facility] No Panel Informationon 02-25 Interpretation and review of laboratory results Abnormal [facility] Nursing Noteon 02-25-2025 Nursing Note [id number]- Notified Dr. Hathaway of patient complaint of SOB and worsening chest pain that he described as dull and tight. Vitals WDL. STAT EKG ordered, patient given Nitrostat, and troponin sent down. 2330- Notified [employer] to assess the patient. Normal [facility] PROTHROMBIN TIMEon INR Coag (PPP) [Relative time] 1.3 {INR} High 0.9-1.1 [facility] Comment on above: Result Comment: Vaughn [...] Myocardial Infarction Performed By: #### Tameka AB325, [id number] ####Recycling Coordinator: DOMENICA JARA ([id number])[address] PT Coag (PPP) [Time] 13.5 s High 9.0-12.0 [facility] Comment on above: Performed By: #### Tameka AB325, [id number] ####Recycling Coordinator: DOMENICA JARA ([id number])[address] INR Coag (PPP) [Relative time] 1.3 {INR} High 0.9-1.1 [facility] Comment on above: Result Comment: Vaughn [...] Myocardial Infarction Performed By: #### L AB320, [id number] ####Recycling Coordinator: DOMENICA JARA ([id number])[address] PT Coag (PPP) [Time] 13.7 s High 9.0-12.0 [facility] Comment on above: Performed By: #### Tameka AB320, [id number] ####Recycling Coordinator: DOMENICA [id number])[facility] ([facility])[address] [place] [address] PT Coag (Bld) [Time]on 02-25 INR Coag (PPP) [Relative time] 1.3 {INR} High 0.9 - 1.1 [facility] Progress Noteon 02-25-2025 Progress Note Normal [facility] Normal [facility] Progress Note Normal [facility] Progress Note Normal [facility] aPTT Coag (Bld) [Time]on aPTT Coag (PPP) [Time] 49.5 s High 20.0 - 30.5 s [facility] 30on 02-24-2025 30 Normal [facility] 30 Normal [facility] APTTon 02-24-2025 aPTT Coag (Bld) [Time] 54.7 s High 20.0-30.5 [facility] Comment on above: Result Comment: ARPAN Kaplan COMMENTS:NOTE: The therapeutic time for Heparin anticoagulation, based on Xa activity inhibition, is an APTT of 46-80 seconds. Performed By: #### L AB325 ####Recycling Coordinator: DOMENICA JARA ([id number])[facility])[address] [place] [address] aPTT Coag (Bld) [Time] 61.0 s High 20.0-30.5 [facility] Comment on above: Result Comment: ARPAN Kaplan COMMENTS:NOTE: The therapeutic time for Heparin anticoagulation, based on Xa activity inhibition, is an APTT of 46-80 seconds. Performed By: #### L AB320, [id number] ####Recycling Coordinator: DOMENICA JARA ([id number])[facility] ([facility])[address] [place] [address] Bacteria identified Aer cx N om (Lower resp)Ordered By: Corey Pabon on 02-24-2025 Gram Stain Result Many Polymorphonuclear leukocytes per low power field Abnormal [facility] Gram Stain Result Few Epithelial cells per low power field Abnormal [facility] Gram Stain Result Positive Abnormal [facility] Gram Stain Result Negative Abnormal [facility] Gram Stain Result Few Yeast Abnormal [facility] Interpretation and review of laboratory results Abnormal [facility] HBV surface Ab IA Qnon 02-24 [facility] HBV surface Ag IA Qlon 02-24 Interpretation and review of laboratory results Normal [facility] HEPATITIS B SURFACE ANTIBODY on 02-24-2025 HEPATITIS B VIRUS SURFACE AB <8.0 Normal [facility] Comment on above: Result Comment: ORDE R COMMENTS:Interpretation:<8.0 Non-Reactive8.0-11.9 Equivocal>= 12.0 Ab DetectedNote: If an equivocal result is interpreted, an antibody status is unable to be determined. Collect new specimen if clinically indicated. Performed By: #### L AB472, [id number] ####Recycling Coordinator: DOMENICA JARA ([id number])[address] HEPATITIS B SURFACE ANTIGENo n 02-24-2025 HEPATITIS B VIRUS SURFACE AG Not detected Normal Not Detected [facility] Comment on above: Performed By: #### L AB472, [id number] ####Recycling Coordinator: DOMENICA JARA ([id number])[facility] ([facility])[address] [place] [address] Laboratory - Coagulationon 0 02-24-2025 PT Coag (Bld) [Time] 13.5 s High 9.0 - 12.0 s [facility] Laboratory - Drug toxicology on 02-24-2025 Vancomycin trough [Mass/Vol] 23.4 ug/mL [facility] Laboratory - Microbiology an d Antimicrobial susceptibilityon 02-24-2025 HBV surface Ab IA Qn mIU/mL [facility] HBV surface Ag IA Ql Not detected Not Detected [facility] Laboratory - Microbiology an d Antimicrobial susceptibilityOrdered By: Corey Pabon on 02-24-2025 Bacteria identified Aer cx Nom (Lower resp) Few respiratory ila present. [facility] Bacteria identified Aer cx Nom (Lower resp) Moderate Klebsiella oxytoca Abnormal [facility] No Panel Informationon 02-24 [facility] Interpretation and review of laboratory results Abnormal [facility] Nursing Noteon 02-24-2025 Nursing Note Normal [facility] PROTHROMBIN TIMEon INR Coag (PPP) [Relative time] 1.3 {INR} High 0.9-1.1 [facility] Comment on above: Result Comment: Vaughn [...] Myocardial Infarction Performed By: #### L AB320, [id number] ####Recycling Coordinator: DOMENICA JARA ([id number])[facility] ([facility])[address] [place] [address] PT Coag (PPP) [Time] 13.5 s High 9.0-12.0 [facility] Comment on above: Performed By: #### L AB320, [id number] ####Recycling Coordinator: DOMENICA JARA ([id number])[facility] [place] [address] PT Coag (Bld) [Time]on 02-24 INR Coag (PPP) [Relative time] 1.3 {INR} High 0.9 - 1.1 [facility] Progress Noteon 02-24-2025 Progress Note Vancomycin therapy has been discontinued by Hussain Quintana on 02/24. Thank you for the consult. Pharmacy signing off for vancomycin dosing. Marissa Iglesias, PharmD, Date: 02/24/25 Time: 4:08 PM Normal [facility] Progress Note Normal [facility] Progress Note Normal [facility] Progress Note Normal [facility] Progress Note Normal [facility] VANCOMYCIN, AUC TIMED DOSING on 02-24-2025 VANCOMYCIN, AUC 23.4 ug/mL Normal [facility] Comment on above: Result Comment: ORDE R COMMENTS:Please draw random level at least >4 hours after the end of hemodialysis.Toxicity is seen at concentrations >80-100 ug/mLTherapeutic (Peak) range: 20-40Therapeutic (Trough) range: 5-10 Performed By: #### L AB39 ####Recycling Coordinator: DOMENICA JARA ([phone])[facility] ([facility])[address] [place] [address] Vancomycin trough [Mass/Vol] on 02-24-2025 [facility] aPTT Coag (Bld) [Time]on aPTT Coag (PPP) [Time] 54.7 s High 20.0 - 30.5 s [facility] Interpretation and review of laboratory results Abnormal [facility] aPTT Coag (PPP) [Time] 61 s High 20.0 - 30.5 s [facility] [id number] 02-23-2025 [id number] Normal [facility] 36on 02-23-2025 36 Called LM to call back and schedule CT and hospital follow up with any ARMIN Normal [facility] 36 Hello, can we please schedule a 6-week CT scan for this patient and a follow-up appointment after this? Thank you Normal [facility] APTTon 02-23-2025 aPTT Coag (Bld) [Time] 49.3 s High 20.0-30.5 [facility] Comment on above: Result Comment: ARPAN Kaplan COMMENTS:NOTE: The therapeutic time for Heparin anticoagulation, based on Xa activity inhibition, is an APTT of 46-80 seconds. Performed By: #### L AB325, [id number] ####Recycling Coordinator: DOMENICA JARA ([id number])[facility] ([facility])[address] [place] [address] CBC (HEMOGRAM)on 02-23-2025 Erythrocyte distribution width (RBC) [Ratio] 19.7 % High 11.5-15.0 [facility] Comment on above: Performed By: #### L AB294 ####Recycling Coordinator: DOMENICA JARA ([id number])[facility] ([facility])[address] [place] [address] Hematocrit (Bld) [Volume fraction] 27.9 % Low 40.0-52.0 [facility] Comment on above: Performed By: #### L AB294 ####Recycling Coordinator: DOMENICA JARA ([id number])[facility] ([facility])[address] [place] [address] Hemoglobin (Bld) [Mass/Vol] 8.6 g/dL Low 13.0-18.0 [facility] Comment on above: Performed By: #### L AB294 ####Recycling Coordinator: DOMENICA JARA ([id number])[facility] ([facility])[address] [place] [address] MCH (RBC) [Entitic mass] 28.7 pg Normal 26.0-34.0 [facility] Comment on above: Performed By: #### L AB294 ####Recycling Coordinator: DOMENICA JARA ([id number])[facility])[address] [place] [address] MCHC 30.8 % Normal 30.5-36.0 [facility] Comment on above: Performed By: #### L AB294 ####Recycling Coordinator: DOMENICA JARA ([id number])[facility] ([facility])[address] [place] [address] MCV (RBC) [Entitic vol] 93.0 fL Normal 77.0-99.0 S [facility] Comment on above: Performed By: #### L AB294 ####Recycling Coordinator: DOMENICA JARA ([id number])[facility])[address] [place] [address] Platelet mean volume (Bld) [Entitic vol] 8.9 fL Low 9.0-12.7 [facility] Comment on above: Performed By: #### L AB294 ####Recycling Coordinator: DOMENICA JARA ([id number])[facility])[address] [place] [address] Platelets (Bld) [#/Vol] 316 10*3/uL Normal 140-440 [facility] Comment on above: Performed By: #### L AB294 ####Recycling Coordinator: DOMENICA JARA ([id number])[facility] ([facility])[address] [place] [address] RBC (Bld) [#/Vol] 3.00 10*6/uL Low 4.40-5.90 [facility] Comment on above: Performed By: #### L AB294 ####Recycling Coordinator: DOMENICA JARA ([id number])[facility] ([facility])[address] [place] [address] WBC (Bld) [#/Vol] 8.6 10*3/uL Normal 3.6-10.7 [facility] Comment on above: Performed By: #### L AB294 ####Recycling Coordinator: DOMENICA JARA ([id number])[facility] ([facility])[address] [place] [address] CBC panel Auto (Bld)on 02-23 Erythrocyte distribution width (RBC) [Ratio] 19.7 % High 11.5 - 15.0 % [facility] Hematocrit (Bld) [Volume fraction] 27.9 % Low 40.0 - 52.0 % [facility] Hemoglobin (Bld) [Mass/Vol] 8.6 g/dL Low 13.0 - 18.0 g/dL [facility] Interpretation and review of laboratory results Abnormal [facility] MCH (RBC) [Entitic mass] 28.7 pg 26. 0 - 34.0 pg [facility] MCHC (RBC) [Mass/Vol] 30.8 % 30.5 - 36.0 % [facility] MCV (RBC) [Entitic vol] 93 fL 77.0 - 99.0 fL [facility] Platelet mean volume (Bld) [Entitic vol] 8.9 fL Low 9.0 - 12.7 fL [facility] Platelets (Bld) [#/Vol] 316 10*3/uL 140 - 440 10*3/uL [facility] RBC (Bld) [#/Vol] 3 10*6/uL Low 4.40 - 5.9 0 10*6/uL [facility] WBC (Bld) [#/Vol] 8.6 10*3/uL 3.6 - 10.7 10*3/uL [facility] COMPREHENSIVE METABOLIC PANE Victor M 02-23-2025 Albumin [Mass/Vol] 1.9 g/dL Low 3.5-5.0 [facility] Comment on above: Performed By: #### L ABAruna, LAB17, [id number] ####Recycling Coordinator: DOMENICA JARA ([id number])[facility] ([facility])[address] [place] [address] ALP [Catalytic activity/Vol] 136 U/L Normal 40-150 [facility] Comment on above: Performed By: #### Tameka ABAruna, LAB17, [id number] ####Recycling Coordinator: DOMENICA JARA ([id number])[facility] ([facility])[address] [place] [address] ALT [Catalytic activity/Vol] 10 U/L Normal <40 [facility] Comment on above: Performed By: #### Tameka ABAruna, LAB17, [id number] ####Recycling Coordinator: DOMENICA JARA ([id number])[facility] ([facility])[address] [place] [address] Anion gap [Moles/Vol] 11 mmol/L Normal 3-13 [facility] Comment on above: Performed By: #### Tameka ABAruna, LAB17, [id number] ####Recycling Coordinator: DOMENICA JARA ([id number])[facility] ([facility])[address] [place] [address] AST [Catalytic activity/Vol] 37 U/L High <34 [facility] Comment on above: Performed By: #### Tameka GIMENEZ, LAB17, [id number] ####Recycling Coordinator: DOMENICA JARA ([id number])[facility] ([facility])[address] [place] [address] Bilirubin [Mass/Vol] 0.6 mg/dL Normal <1.2 [facility] Comment on above: Performed By: #### Tameka ABAruna, LAB17, [id number] ####Recycling Coordinator: DOMENICA JARA ([id number])[facility])[address] [place] [address] Calcium [Mass/Vol] 9.2 mg/dL Normal 8.4-10.2 [facility] Comment on above: Performed By: #### L AB113, LAB17, [id number] ####Recycling Coordinator: DOMENICA JARA ([phone])[facility] [place] [address] [place] Chloride [Moles/Vol] 99 mmol/L Normal 98-107 [facility] Comment on above: Performed By: #### L AB113, LAB17, [id number] ####Recycling Coordinator: DOMENICA JARA ([id number])[facility])[address] [place] [address] CO2 [Moles/Vol] 25 mmol/L Normal 22-29 [facility] Comment on above: Performed By: #### Tameka ABAruna, LAB17, [id number] ####Recycling Coordinator: DOMENICA JARA ([id number])[facility] ([facility])[address] [place] [address] Creatinine [Mass/Vol] 2.78 mg/dL High 0.72-1.25 [facility] Comment on above: Performed By: #### Tameka ABAruna, LAB17, [id number] ####Recycling Coordinator: DOMENICA JARA ([id number])[facility] ([facility])[address] [place] [address] GLOMERULAR FILTRATION RATE ML/MIN/1.73 SQ M.PREDICTED 25.4 mL/min/1.73m*2 Low >60.0 [facility] Comment on above: Result Comment: Calc ulation based on the Chronic Kidney Disease Epidemiology Collaboration (CKD-EPI) equation refit without adjustment for race Performed By: #### L AB113, LAB17, [id number] ####Recycling Coordinator: DOMENICA JARA ([id number])[facility])[address] [place] [address] [place] Glucose [Mass/Vol] 110 mg/dL High 74-100 [facility] Comment on above: Performed By: #### L AB113, LAB17, [id number] ####Recycling Coordinator: DOMENICA JARA ([id number])[facility] ([facility])[address] [place] [address] [place] Potassium [Moles/Vol] 4.1 mmol/L Normal 3.5-5.1 [facility] Comment on above: Result Comment: [facility] potassium values may be up to 0.5 mmol/L lower than serum values. Performed By: #### L AB113, LAB17, [id number] ####Recycling Coordinator: DOMENICA JARA ([id number])[facility] ([facility])[address] [place] [address] Protein [Mass/Vol] 7.1 g/dL Normal 6.4-8.3 [facility] Comment on above: Performed By: #### L AB113, LAB17, [id number] ####Recycling Coordinator: DOMENICA JARA ([id number])[facility])[address] [place] [address] Sodium [Moles/Vol] 135 mmol/L Low 136-145 [facility] Comment on above: Performed By: #### L ABAruna, LAB17, [id number] ####Recycling Coordinator: DOMENICA JARA ([id number])[facility] ([facility])[address] [place] [address] Urea nitrogen [Mass/Vol] 21 mg/dL Normal 9-23 [facility] Comment on above: Performed By: #### L AB113, LAB17, [id number] ####Recycling Coordinator: DOMENICA JARA ([id number])[facility])[address] [place] [address] Comprehensive metabolic 1998 panelOrdered By: Jarred José on 02-23-2025 Albumin [Mass/Vol] 1.9 g/dL Low 3.5 - 5.0 g/dL [facility] ALP [Catalytic activity/Vol] 136 U/L 40 - 150 U/L [facility] ALT [Catalytic activity/Vol] 10 U/L NINF - 40 U/L [facility] Anion gap [Moles/Vol] 11 mmol/L 3 - 13 mmol/L [facility] AST [Catalytic activity/Vol] 37 U/L High NINF - 34 U/L [facility] Bilirubin [Mass/Vol] 0.6 mg/dL NINF - 1.2 mg/dL [facility] Calcium [Mass/Vol] 9.2 mg/dL 8.4 - 10. 2 mg/dL [facility] Chloride [Moles/Vol] 99 mmol/L 98 - 10 7 mmol/L [facility] CO2 [Moles/Vol] 25 mmol/L 22 - 29 mmol/L [facility] Creatinine [Mass/Vol] 2.78 mg/dL High 0.72 - 1.25 mg/dL [facility] GFR/1.73 sq M.predicted (S/P/Bld) [Vol rate/Area] 25.4 mL/min Low - PINF [facility] Glucose [Mass/Vol] 110 mg/dL High 74 - 100 mg/dL [facility] Interpretation and review of laboratory results Abnormal [facility] Potassium [Moles/Vol] 4.1 mmol/L 3.5 - 5.1 mmol/L [facility] Protein [Mass/Vol] 7.1 g/dL 6.4 - 8.3 g/dL [facility] Sodium [Moles/Vol] 135 mmol/L Low 136 - 145 mmol/L [facility] Urea nitrogen [Mass/Vol] 21 mg/dL 9 - 23 mg/d L [facility] Consulton 02-23-2025 Consult Normal [facility] Laboratory - Chemistry and C hemistry - challengeon 02-23-2025 Magnesium [Mass/Vol] 2 mg/dL 1.6 - 2 .6 mg/dL [facility] Laboratory - Coagulationon 0 02-23-2025 PT Coag (Bld) [Time] 14 s High 9.0 - 12.0 s [facility] MAGNESIUMon 02-23-2025 Magnesium [Mass/Vol] 2.0 mg/dL Normal 1.6-2.6 [facility] Comment on above: Result Comment: ARPAN Kaplan COMMENTS:Higher values can be expected in females during menses. Performed By: #### L AB113, LAB17, [id number] ####Recycling Coordinator: DOMENICA JARA ([id number])[facility] ([address] Magnesium [Mass/Vol]on 02-23 [facility] No Panel Informationon 02-23 Interpretation and review of laboratory results Normal [facility] Interpretation and review of laboratory results Abnormal [facility] Nursing Noteon 02-23-2025 Nursing Note Normal [facility] Nursing Note Normal [facility] PHOSPHORUSon 02-23-2025 Phosphate [Mass/Vol] 2.6 mg/dL Normal 2.3-4.7 [facility] Comment on above: Performed By: #### L AB113, LAB17, [id number] ####Recycling Coordinator: DOMENICA JARA ([id number])[facility])[address] [place] [address] PROTHROMBIN TIMEon INR Coag (PPP) [Relative time] 1.3 {INR} High 0.9-1.1 [facility] Comment on above: Result Comment: Vaughn [...] Myocardial Infarction Performed By: #### Tameka AB325, [id number] ####Recycling Coordinator: DOMENICA JARA ([phone])[facility])[address] [place] [address] PT Coag (PPP) [Time] 14.0 s High 9.0-12.0 [facility] Comment on above: Performed By: #### Tameka AB325, [id number] ####Recycling Coordinator: DOMENICA JARA ([id number])[facility])[address] [place] [address] PT Coag (Bld) [Time]on 02-23 INR Coag (PPP) [Relative time] 1.3 {INR} High 0.9 - 1.1 [facility] Phosphate [Moles/Vol]on 01-27 Phosphate [Mass/Vol] 2.6 mg/dL 2.3 - 4 .7 mg/dL [facility] Progress Noteon 02-23-2025 Progress Note Normal [facility] Progress Note Normal [facility] Progress [facility] Progress [facility] Progress Note Normal [facility] US Heart TransthoracicOrdere d By: Daryn Chowdary on 02-23-2025 Aortic valve Mean systole pressure gradient by US.doppler derived full Bernoulli 10 mmHg [facility] Work Phone: Aortic valve Orifice area by US 3.1 cm2 [facility] Work Phone: Aortic valve Peak systolic flow by US.doppler 1.4 m/s [facility] Work Phone: Ascending Aorta 3.5 cm [facility] Work Phone: Ascending Aorta Index 1.99 cm/m2 [facility] Work Phone: AV Area by Peak Velocity 1.3 cm2 [facility] Work Phone: AV Area by VTI 1.5 cm2 [facility] Work Phone: AV AT 66.6 ms [facility] Work Phone: AV Peak Gradient 20 mmHg [facility] Work Phone: AV Peak Velocity 2.3 m/s [facility] Work Phone: AV Velocity Ratio 0.39 [facility] Work Phone: AV VTI 39.1 cm [facility] Work Phone: MALU/BSA Peak Velocity 0.7 cm2/m2 [facility] Work Phone: MALU/BSA VTI 0.9 cm2/m2 [facility] Work Phone: E/E' Lateral 21.43 [facility] Work Phone: E/E' Ratio (Averaged) 25.71 [facility] Work Phone: E/E' Septal 30 [facility] Work Phone: Est. RA Pressure 15 mmHg [facility] Work Phone: Fractional Shortening 2D 31 % 28 - 44 % [facility] Work Phone: Interpretation and review of laboratory results Abnormal [facility] Work Phone: IVC Diameter 2.5 cm [facility] Work Phone: IVSd 1.6 cm Abnormal 0.6 - 1.0 cm [facility] Work Phone: LA Diameter 3.1 cm [facility] Work Phone: LA Size Index 1.76 cm/m2 [facility] [employer] Work Phone: LA Volume 2C 69 mL Abnormal 18 - 58 mL [facility] Work Phone: LA Volume 4C 84 mL Abnormal 18 - 58 mL [facility] Work Phone: LA Volume A/L 85 mL [facility] [employer] Work Phone: LA Volume BP 78 mL Abnormal 18 - 58 mL [facility] Work Phone: LA Volume Index 2C 39 mL/m2 Abnormal 16 - 34 mL/m2 [facility] Work Phone: LA Volume Index 4C 48 mL/m2 Abnormal 16 - 34 mL/m2 [facility] Work Phone: LA Volume Index A/L 48 mL/m2 16 - 34 mL/m2 [facility] Work Phone: LA Volume Index BP 44 ml/m2 Abnormal 16 - 34 ml/m2 [facility] Work Phone: LV E' Lateral Velocity 7 cm/s [facility] Work Phone: LV E' Septal Velocity 5 cm/s [facility] Work Phone: LV Mass 2D 201 g 88 - 224 g [facility] Work Phone: LV Mass 2D Index 114.2 g/m2 49 - 115 g/m2 [facility] Work Phone: LV RWT Ratio 0.78 [facility] Work Phone: LVIDd 3.6 cm Abnormal 4.2 - 5.9 cm [facility] Work Phone: LVIDd Index 2.05 cm/m2 [facility] Work Phone: LVIDs 2.5 cm [facility] Work Phone: LVIDs Index 1.42 cm/m2 [facility] Health Work Phone: LVOT Cardiac Output 5.3 liter/minute [facility] Work Phone: LVOT Diameter 2 cm [facility] Work Phone: LVOT Mean Gradient 2 mmHg [facility] Work Phone: LVOT Peak Gradient 3 mmHg [facility] Work Phone: LVOT Peak Velocity 0.9 m/s [facility] Work Phone: LVOT Stroke Volume Index 33.4 mL/m2 [facility] Work Phone: LVOT SV 58.7 ml [facility] Work Phone: LVOT VTI 18.7 cm [facility] Work Phone: LVOT:AV VTI Index 0.48 [facility] Work Phone: LVPWd 1.4 cm Abnormal 0.6 - 1.0 cm [facility] Work Phone: MV A Velocity 0.97 m/s [facility] Work Phone: MV Area by PHT 3 cm2 [facility] Work Phone: MV Area by VTI 1.3 cm2 [facility] Work Phone: MV E Velocity 1.5 m/s [facility] Work Phone: MV E Wave Deceleration Time 250.1 ms [facility] Work Phone: MV E/A 1.55 [facility] Work Phone: MV Max Velocity 2 [...] [facility] Work Phone: US Heart Transthoracicon [facility] aPTT Coag (Bld) [Time]on aPTT Coag (PPP) [Time] 49.3 s High 20.0 - 30.5 s [facility] 30on 02-22-2025 30 Normal [facility] [id number] 02-22-2025 [id number] Normal [facility] [id number] Updated notes sent to [facility] via [facility] per TCC request. Await review and response regarding ability to accept. TCC notified. [facility] APTTon 02-22-2025 aPTT Coag (Bld) [Time] 52.1 s High 20.0-30.5 [facility] Comment on above: Result Comment: ARPAN Kaplan COMMENTS:NOTE: The therapeutic time for Heparin anticoagulation, based on Xa activity inhibition, is an APTT of 46-80 seconds. Performed By: #### L AB325 ####Recycling Coordinator: DOMENICA JARA ([id number])[address] aPTT Coag (Bld) [Time] 54.9 s High 20.0-30.5 [facility] Comment on above: Result Comment: ARPAN Kaplan COMMENTS:NOTE: The therapeutic time for Heparin anticoagulation, based on Xa activity inhibition, is an APTT of 46-80 seconds. Performed By: #### L AB325, [id number] ####Recycling Coordinator: DOMENICA JARA ([id number])[facility])[address] [place] [address] [place] BLOOD CULTUREon 02-22-2025 Bacteria identified Cx Nom (Bld) [facility] Comment on above: Performed By: #### L [id number] ####Recycling Coordinator: DOMENICA JARA ([id number])[address] Bacteria identified Cx Nom (Bld) [facility] Comment on above: Performed By: #### L AB462 ####Recycling Coordinator: DOMENICA JARA ([id number])[facility])[address] [place] [address] CBC (HEMOGRAM)on 02-22-2025 Erythrocyte distribution width (RBC) [Ratio] 19.4 % High 11.5-15.0 [facility] Comment on above: Performed By: #### L [id number] ####Recycling Coordinator: DOMENICA JARA ([id number])[facility])[address] [place] [address] Hematocrit (Bld) [Volume fraction] 24.5 % Low 40.0-52.0 [facility] Comment on above: Performed By: #### L [id number] ####Recycling Coordinator: DOMENICA JARA ([id number])[address] Hemoglobin (Bld) [Mass/Vol] 7.8 g/dL Low 13.0-18.0 [facility] Comment on above: Performed By: #### L [id number] ####Recycling Coordinator: DOMENICA JARA ([id number])[facility])[address] [place] [address] MCH (RBC) [Entitic mass] 29.0 pg Normal 26.0-34.0 [facility] Comment on above: Performed By: #### L [id number] ####Recycling Coordinator: DOMENICA JARA ([id number])[facility])[address] [place] [address] MCHC 31.8 % Normal 30.5-36.0 [facility] Comment on above: Performed By: #### L [id number] ####Recycling Coordinator: DOMENICA JARA ([id number])[facility])[address] [place] [address] MCV (RBC) [Entitic vol] 91.1 fL Normal 77.0-99.0 [facility] Comment on above: Performed By: #### L [id number] ####Recycling Coordinator: DOMENICA JARA ([id number])[facility])[address] [place] [address] Platelet mean volume (Bld) [Entitic vol] 8.9 fL Low 9.0-12.7 [facility] Comment on above: Performed By: #### L [id number] ####Recycling Coordinator: DOMENICA JARA ([id number])[facility])[address] [place] [address] Platelets (Bld) [#/Vol] 282 10*3/uL Normal 140-440 [facility] Comment on above: Performed By: #### L [id number] ####Recycling Coordinator: DOMENICA JARA ([id number])[facility])[address] [place] [address] RBC (Bld) [#/Vol] 2.69 10*6/uL Low 4.40-5.90 [facility] Comment on above: Performed By: #### L [id number] ####Recycling Coordinator: DOMENICA JARA ([id number])[facility] ([facility])[address] [place] [address] WBC (Bld) [#/Vol] 9.0 10*3/uL Normal 3.6-10.7 [facility] Comment on above: Performed By: #### L [id number] ####Recycling Coordinator: DOMENICA JARA ([id number])[facility])[address] [place] [address] CBC panel Auto (Bld)on 02-22 Erythrocyte distribution width (RBC) [Ratio] 19.4 % High 11.5 - 15.0 % [facility] Hematocrit (Bld) [Volume fraction] 24.5 % Low 40.0 - 52.0 % [facility] Hemoglobin (Bld) [Mass/Vol] 7.8 g/dL Low 13.0 - 18.0 g/dL [facility] Interpretation and review of laboratory results Abnormal [facility] MCH (RBC) [Entitic mass] 29 pg 26. 0 - 34.0 pg [facility] MCHC (RBC) [Mass/Vol] 31.8 % 30.5 - 36.0 % [facility] MCV (RBC) [Entitic vol] 91.1 fL 77.0 - 99.0 fL [facility] Platelet mean volume (Bld) [Entitic vol] 8.9 fL Low 9.0 - 12.7 fL [facility] Platelets (Bld) [#/Vol] 282 10*3/uL 140 - 440 10*3/uL [facility] RBC (Bld) [#/Vol] 2.69 10*6/uL Low 4.40 - 5.9 0 10*6/uL [facility] WBC (Bld) [#/Vol] 9 10*3/uL 3.6 - 10.7 10*3/uL [facility] COMPREHENSIVE METABOLIC PANE Victor M 02-22-2025 Albumin [Mass/Vol] 1.8 g/dL Low 3.5-5.0 [facility] Comment on above: Performed By: #### Tameka AB103, LAB17, [id number] ####Recycling Coordinator: DOMENICA JARA ([id number])[facility])[address] [place] [address] ALP [Catalytic activity/Vol] 120 U/L Normal 40-150 [facility] Comment on above: Performed By: #### Tameka KWONG, LAB17, [id number] ####Recycling Coordinator: DOMENICA JARA ([id number])[facility])[address] [place] [address] ALT [Catalytic activity/Vol] 9 U/L Normal <40 [facility] Comment on above: Performed By: #### Tameka AB103, LAB17, [id number] ####Recycling Coordinator: DOMENICA JARA ([id number])[facility])[address] [place] [address] Anion gap [Moles/Vol] 13 mmol/L Normal 3-13 [facility] Comment on above: Performed By: #### L AB103, LAB17, [id number] ####Recycling Coordinator: DOMENICA JARA ([id number])[facility])[address] [place] [address] AST [Catalytic activity/Vol] 35 U/L High <34 [facility] Comment on above: Performed By: #### L AB103, LAB17, [id number] ####Recycling Coordinator: DOMENICA JARA ([id number])[facility])[address] [place] [address] Bilirubin [Mass/Vol] 0.6 mg/dL Normal <1.2 [facility] Comment on above: Performed By: #### L AB103, LAB17, [id number] ####Recycling Coordinator: DOMENICA JARA ([id number])[facility] ([facility])[address] [place] [address] Calcium [Mass/Vol] 9.2 mg/dL Normal 8.4-10.2 [facility] Comment on above: Performed By: #### Tameka KWONG, LAB17, [id number] ####Recycling Coordinator: DOMENICA JARA ([id number])[facility] ([facility])[address] [place] [address] Chloride [Moles/Vol] 94 mmol/L Low 98-107 [facility] Comment on above: Performed By: #### Tameka AB103, LAB17, [id number] ####Recycling Coordinator: DOMENICA JARA ([id number])[facility])[address] [place] [address] CO2 [Moles/Vol] 25 mmol/L Normal 22-29 [facility] Comment on above: Performed By: #### Tameka ABRadha, LAB17, [id number] ####Recycling Coordinator: DOMENICA JARA ([id number])[facility] ([facility])[address] [place] [address] Creatinine [Mass/Vol] 3.99 mg/dL High 0.72-1.25 [facility] Comment on above: Performed By: #### L AB103, LAB17, [id number] ####Recycling Coordinator: DOMENICA JARA ([id number])[facility])[address] [place] [address] GLOMERULAR FILTRATION RATE ML/MIN/1.73 SQ M.PREDICTED 16.5 mL/min/1.73m*2 Low >60.0 [facility] Comment on above: Result Comment: Calc ulation based on the Chronic Kidney Disease Epidemiology Collaboration (CKD-EPI) equation refit without adjustment for race Performed By: #### Tameka KWONG, LAB17, [id number] ####Recycling Coordinator: DOMENICA JARA ([id number])[facility])[address] [place] [address] Glucose [Mass/Vol] 121 mg/dL High 74-100 [facility] Comment on above: Performed By: #### Tameka KWONG, LAB17, [id number] ####Recycling Coordinator: DOMENICA JARA ([id number])[facility])[address] [place] [address] Potassium [Moles/Vol] 3.4 mmol/L Low 3.5-5.1 [facility] Comment on above: Result Comment: [facility] potassium values may be up to 0.5 mmol/L lower than serum values. Performed By: #### Tameka KWONG, LAB17, [id number] ####Recycling Coordinator: DOMENICA JARA ([id number])[facility])[address] [place] [address] Protein [Mass/Vol] 6.7 g/dL Normal 6.4-8.3 [facility] Comment on above: Performed By: #### Tameka KWONG, LAB17, [id number] ####Recycling Coordinator: DOMENICA JARA ([id number])[facility])[address] [place] [address] Sodium [Moles/Vol] 132 mmol/L Low 136-145 [facility] Comment on above: Performed By: #### Tameka KWONG, LAB17, [id number] ####Recycling Coordinator: DOMENICA JARA ([id number])[facility])[address] [place] [address] Urea nitrogen [Mass/Vol] 36 mg/dL High 9-23 [facility] Comment on above: Performed By: #### Tameka AB103, LAB17, [id number] ####Recycling Coordinator: DOMENICA JARA ([id number])[facility])[address] [place] [address] Comprehensive metabolic 1998 panelOrdered By: Michelle Olmstead on 02-22-2025 Albumin [Mass/Vol] 1.8 g/dL Low 3.5 - 5.0 g/dL [facility] ALP [Catalytic activity/Vol] 120 U/L 40 - 150 U/L [facility] ALT [Catalytic activity/Vol] 9 U/L NINF - 40 U/L [facility] Anion gap [Moles/Vol] 13 mmol/L 3 - 13 mmol/L [facility] AST [Catalytic activity/Vol] 35 U/L High NINF - 34 U/L [facility] Bilirubin [Mass/Vol] 0.6 mg/dL NINF - 1.2 mg/dL [facility] Calcium [Mass/Vol] 9.2 mg/dL 8.4 - 10. 2 mg/dL [facility] Chloride [Moles/Vol] 94 mmol/L Low 98 - 10 7 mmol/L [facility] CO2 [Moles/Vol] 25 mmol/L 22 - 29 mmol/L [facility] Creatinine [Mass/Vol] 3.99 mg/dL High 0.72 - 1.25 mg/dL [facility] GFR/1.73 sq M.predicted (S/P/Bld) [Vol rate/Area] 16.5 mL/min Low - PINF [facility] Glucose [Mass/Vol] 121 mg/dL High 74 - 100 mg/dL [facility] Interpretation and review of laboratory results Abnormal [facility] Potassium [Moles/Vol] 3.4 mmol/L Low 3.5 - 5.1 mmol/L [facility] Protein [Mass/Vol] 6.7 g/dL 6.4 - 8.3 g/dL [facility] Sodium [Moles/Vol] 132 mmol/L Low 136 - 145 mmol/L [facility] Urea nitrogen [Mass/Vol] 36 mg/dL High 9 - 23 mg/d L [facility] Consulton 02-22-2025 Consult Normal [facility] Consult Normal [facility] Consult Normal [facility] LEGIONELLA AND STREPTOCOCCUS URINE ANTIGENon 02-22-2025 LEGIONELLA AND STREPTOCOCCUS URINE ANTIGEN Normal [facility] Comment on above: Performed By: #### L [id number] ####Recycling Coordinator: DOMENICA JARA ([id number])[address] [place] [address] [place] Laboratory - Chemistry and C hemistry - challengeon 02-22-2025 Magnesium [Mass/Vol] 2.2 mg/dL 1.6 - 2 .6 mg/dL [facility] Laboratory - Coagulationon 0 02-22-2025 PT Coag (Bld) [Time] 14.9 s High 9.0 - 12.0 s [facility] Laboratory - Drug toxicology on 02-22-2025 Vancomycin [Mass/Vol] 12.6 ug/mL [facility] MAGNESIUMon 02-22-2025 Magnesium [Mass/Vol] 2.2 mg/dL Normal 1.6-2.6 [facility] Comment on above: Result Comment: ARPAN Kaplan COMMENTS:Higher values can be expected in females during menses. Performed By: #### L AB103, LAB17, [id number] ####Recycling Coordinator: DOMENICA JARA ([id number])[facility] ([facility])[address] [place] [address] MRSA BY PCRon 02-22-2025 MRSA BY PCR Normal [facility] Comment on above: Performed By: #### L [id number] ####Recycling Coordinator: DOMENICA JARA ([id number])[facility] ([facility])[address] [place] [address] MRSA DNA EMMANUEL+probe Ql (Nose) on 02-22-2025 Interpretation and review of laboratory results Normal [facility] mecA gene Not detected Not Detected [facility] Staphylococcus aureus Not detected Not Detected [facility] Magnesium [Mass/Vol]on 02-22 [facility] No Panel Informationon 02-22 [facility] Interpretation and review of laboratory results Normal [facility] Interpretation and review of laboratory results Abnormal [facility] No Panel InformationOrdered By: Lorin Bryant on 02-22-2025 Interpretation and review of laboratory results Normal [facility] Legionella pneumophila Ag Not detected Not Detected [facility] Streptococcus pneumoniae Ag Not detected Not Detected [facility] Nursing Noteon 02-22-2025 Nursing Note Pt keeps ordering door dash items. Have explained to pt on multiple occasions that staff cannot leave floor to get items and that it is after hours and door dashers most likely will not be allowed up onto the floors. Normal [facility] Nursing Note Normal [facility] Nursing Note Normal [facility] PHOSPHORUSon 02-22-2025 Phosphate [Mass/Vol] 3.2 mg/dL Normal 2.3-4.7 [facility] Comment on above: Performed By: #### L AB103, LAB17, [id number] ####Recycling Coordinator: DOMENICA JARA ([id number])[facility])[address] [place] [address] PNEUMONIA PCR PANELon 2024 PNEUMONIA PCR PANEL Normal [facility] Comment on above: Performed By: #### L [id number] ####Recycling Coordinator: DOMENICA JARA ([id number])[facility])[address] [place] [address] PROTHROMBIN TIMEon INR Coag (PPP) [Relative time] 1.4 {INR} High 0.9-1.1 [facility] Comment on above: Result Comment: Vaughn [...] Myocardial Infarction Performed By: #### Tameka AB325, [id number] ####Recycling Coordinator: DOMENICA JARA ([id number])[facility] ([facility])[address] [place] [address] [place] PT Coag (PPP) [Time] 14.9 s High 9.0-12.0 [facility] Comment on above: Performed By: #### L AB325, [id number] ####Recycling Coordinator: DOMENICA JARA ([id number])[facility] ([facility])[address] [place] [address] [place] PT Coag (Bld) [Time]on 02-22 INR Coag (PPP) [Relative time] 1.4 {INR} High 0.9 - 1.1 [facility] Phosphate [Moles/Vol]on 01-26 Phosphate [Mass/Vol] 3.2 mg/dL 2.3 - 4 .7 mg/dL [facility] Progress Noteon 02-22-2025 Progress Note Normal [facility] Progress Note Normal [facility] Progress Note Normal [facility] Progress Note OCCUPATIONAL THERAPY [facility] Name/MRN: Jair Snyder ([id number]) Date: 02/22/2025 PT refusing to participate in therapy this AM, will continue to follow and re approach for OT morales. Ro Farnsworth, OT Normal [facility] Progress Note Normal [facility] Progress Note Normal [facility] RESPIRATORY CULTURE AND STAI Non 02-22-2025 RESPIRATORY CULTURE AND STAIN Normal [facility] Comment on above: Performed By: #### L AB900 ####Recycling Coordinator: DOMENICA JARA ([id number])[facility] ([facility])[address] [place] [address] Respiratory pathogens DNA an d RNA panel EMMANUEL+non-probe (Lower resp)Ordered By: Odalys Bustamante on 02-22-2025 Acinetobacter baumannii complex Not detected Not Detected [facility] Adenovirus Not detected Not Detected [facility] Chlamydia pneumoniae Not detected Not Detected [facility] Enterobacter cloacae complex Not detected Not Detected [facility] Escherichia coli Not detected Not Detected [facility] FLUAV RNA EMMANUEL+non-probe Ql (Lower resp) Not detected Not Detected [facility] FLUBV RNA EMMANUEL+non-probe Ql (Lower resp) Not detected Not Detected [facility] Haemophilus influenzae Not detected Not Detecte d [facility] Human Metapneumovirus Not detected Not Detected [facility] Human Rhinovirus/Enterovirus Not detected Not Detected [facility] Interpretation and review of laboratory results Abnormal [facility] Klebsiella (Enterobacter) aerogenes Not detected Not Detected [facility] Klebsiella oxytoca Detected Abnormal Not Detected [facility] Klebsiella pneumoniae Not detected Not Detected [facility] Legionella pneumophila Not detected Not Detecte d [facility] mecA Not detected Not Detected [facility] Moraxella catarrhalis Not detected Not Detected [facility] Mycoplasma pneumoniae Not detected Not Detected [facility] Parainfluenza virus Not detected Not Detected S [facility] Proteus spp Not detected [facility] Pseudomonas aeruginosa Not detected Not Detecte d [facility] RSV RNA EMMANUEL+probe Ql (Resp) Not detected Not Detected [facility] S. agalactiae Org specific cx Ql (Vag fld) Not detected Not Detected [facility] SARS-CoV-2 (COVID-19) RNA EMMANUEL+non-probe Ql (Nph) Not detected Not Detected [facility] Serratia marcescens Not detected Not Detected S [facility] Staphylococcus aureus Detected Abnormal Not Detected S [facility] Streptococcus pneumoniae Not detected Not Detec yo [facility] Streptococcus pyogenes Not detected Not Detecte d [facility] VANCOMYCIN, RANDOMon 025 VANCOMYCIN 12.6 ug/mL Normal [facility] Comment on above: Result Comment: ARPAN Kaplan COMMENTS:This level is ordered to be drawn 4 hours post- HD. ThanksToxicity is seen at concentrations >80-100 ug/mLTherapeutic (Peak) range: 20-40Therapeutic (Trough) range: 5-10 Performed By: #### L AB40 ####Recycling Coordinator: DOMENICA JARA ([id number])[facility] ([facility] aPTT Coag (Bld) [Time]on aPTT Coag (PPP) [Time] 52.1 s High 20.0 - 30.5 s [facility] Interpretation and review of laboratory results Abnormal [facility] aPTT Coag (PPP) [Time] 54.9 s High 20.0 - 30.5 s [facility] 30on 02-21-2025 30 Normal [facility] [id number] 02-21-2025 [id number] [facility]..Tiffanie campbell signed by Kaity Sepulveda RN on 02/21/2025 at 12:54 PM Normal [facility] [id number] Normal [facility] 36on 02-21-2025 36 Normal [facility] APTTon 02-21-2025 aPTT Coag (Bld) [Time] 50.3 s High 20.0-30.5 [facility] Comment on above: Result Comment: ARPAN Kaplan COMMENTS:NOTE: The therapeutic time for Heparin anticoagulation, based on Xa activity inhibition, is an APTT of 46-80 seconds. Performed By: #### L AB325 ####Recycling Coordinator: DOMENICA JARA ([id number])[facility])[address] [place] [address] aPTT Coag (Bld) [Time] 32.6 s High 20.0-30.5 [facility] Comment on above: Result Comment: ARPAN Kaplan COMMENTS:NOTE: The therapeutic time for Heparin anticoagulation, based on Xa activity inhibition, is an APTT of 46-80 seconds. Performed By: #### L AB325 ####Recycling Coordinator: DOMENICA JARA ([id number])[facility] ([facility])[address] [place] [address] BLOOD TYPE AND SCREEN GELon 02-21-2025 ABO GROUPING O Normal [facility] Comment on above: Performed By: #### L AB276 ####Recycling Coordinator: DOMENICA JARA ([id number])[facility] ([facility])[address] [place] [address] RH TYPE IN BLOOD Negative Normal [facility] Comment on above: Performed By: #### L AB276 ####Recycling Coordinator: DOMENICA JARA ([id number])[facility] ([facility])[address] [place] [address] Blood type and Crossmatch pa freida (Bld)on 02-21-2025 ABO group Nom (Bld) O [facility] Blood group antibody screen GEL Ql Negative [facility] D Ag Ql (RBC) Negative [facility] h [facility] C-REACTIVE PROTEINon 025 CRP [Mass/Vol] 60.3 mg/L High <5.0 [facility] Comment on above: Performed By: #### L AB149, [id number], LAB17, [id number], [id number] ####Recycling Coordinator: DOMENICA JARA ([id number])[facility])[address] [place] [address] CBC (HEMOGRAM)on 02-21-2025 Erythrocyte distribution width (RBC) [Ratio] 19.0 % High 11.5-15.0 [facility] Comment on above: Performed By: #### L AB294 ####Recycling Coordinator: DOMENICA JARA ([id number])[facility])[address] [place] [address] Hematocrit (Bld) [Volume fraction] 25.7 % Low 40.0-52.0 [facility] Comment on above: Performed By: #### L AB294 ####Recycling Coordinator: DOMENICA JARA ([id number])[address] Hemoglobin (Bld) [Mass/Vol] 8.3 g/dL Low 13.0-18.0 [facility] Comment on above: Performed By: #### L AB294 ####Recycling Coordinator: DOMENICA JARA ([id number])[facility])[address] [place] [address] MCH (RBC) [Entitic mass] 29.0 pg Normal 26.0-34.0 [facility] Comment on above: Performed By: #### L [id number] ####Recycling Coordinator: DOMENICA JARA ([phone])[address] MCHC 32.3 % Normal 30.5-36.0 [facility] Comment on above: Performed By: #### L AB294 ####Recycling Coordinator: DOMENICA JARA ([id number])[address] MCV (RBC) [Entitic vol] 89.9 fL Normal 77.0-99.0 [facility] Comment on above: Performed By: #### L AB294 ####Recycling Coordinator: DOMENICA JARA ([id number])[facility])[address] [place] [address] Platelet mean volume (Bld) [Entitic vol] 8.9 fL Low 9.0-12.7 [facility] Comment on above: Performed By: #### L AB294 ####Recycling Coordinator: DOMENICA JARA ([phone])[facility])[address] [place] [address] Platelets (Bld) [#/Vol] 316 10*3/uL Normal 140-440 [facility] Comment on above: Performed By: #### L AB294 ####Recycling Coordinator: DOMENICA JARA ([id number])[facility])[address] [place] [address] RBC (Bld) [#/Vol] 2.86 10*6/uL Low 4.40-5.90 [facility] Comment on above: Performed By: #### L [id number] ####Recycling Coordinator: DOMENICA JARA ([id number])[facility])[address] [place] [address] WBC (Bld) [#/Vol] 7.0 10*3/uL Normal 3.6-10.7 [facility] Comment on above: Performed By: #### L AB294 ####Recycling Coordinator: DOMENICA JARA ([phone])[facility])[address] [place] [address] CBC panel Auto (Bld)on 02-21 Erythrocyte distribution width (RBC) [Ratio] 19 % High 11.5 - 15.0 % [facility] Hematocrit (Bld) [Volume fraction] 25.7 % Low 40.0 - 52.0 % [facility] Hemoglobin (Bld) [Mass/Vol] 8.3 g/dL Low 13.0 - 18.0 g/dL [facility] Interpretation and review of laboratory results Abnormal [facility] MCH (RBC) [Entitic mass] 29 pg 26. 0 - 34.0 pg [facility] MCHC (RBC) [Mass/Vol] 32.3 % 30.5 - 36.0 % [facility] MCV (RBC) [Entitic vol] 89.9 fL 77.0 - 99.0 fL [facility] Platelet mean volume (Bld) [Entitic vol] 8.9 fL Low 9.0 - 12.7 fL [facility] Platelets (Bld) [#/Vol] 316 10*3/uL 140 - 440 10*3/uL [facility] RBC (Bld) [#/Vol] 2.86 10*6/uL Low 4.40 - 5.9 0 10*6/uL [facility] WBC (Bld) [#/Vol] 7 10*3/uL 3.6 - 10.7 10*3/uL [facility] COMPREHENSIVE METABOLIC PANE Victor M 02-21-2025 Albumin [Mass/Vol] 2.0 g/dL Low 3.5-5.0 [facility] Comment on above: Performed By: #### L AB149, [id number], LAB17, [id number], SAH081 ####Recycling Coordinator: DOMENICA JARA ([id number])[facility])[address] [place] [address] ALP [Catalytic activity/Vol] 120 U/L Normal 40-150 [facility] Comment on above: Performed By: #### L AB149, [id number], LAB17, NFV786, [id number] ####Recycling Coordinator: DOMENICA JARA ([id number])[facility] ([facility])[address] [place] [address] ALT [Catalytic activity/Vol] 8 U/L Normal <40 [facility] Comment on above: Performed By: #### L AB149, [id number], LAB17, ASN152, GCI360 ####Recycling Coordinator: DOMENICA JARA ([id number])[facility] ([facility])[address] [place] [address] Anion gap [Moles/Vol] 12 mmol/L Normal 3-13 [facility] Comment on above: Performed By: #### L AB149, [id number], LAB17, FGU065, FZE884 ####Recycling Coordinator: DOMENICA JARA ([id number])[facility] ([facility])[address] [place] [address] AST [Catalytic activity/Vol] 39 U/L High <34 [facility] Comment on above: Performed By: #### L AB149, [id number], LAB17, JBO161, WTO741 ####Recycling Coordinator: DOMENICA JARA ([id number])[facility] ([facility])[address] [place] [address] Bilirubin [Mass/Vol] 0.8 mg/dL Normal <1.2 [facility] Comment on above: Performed By: #### L AB149, [id number], LAB17, VQE651, GBY270 ####Recycling Coordinator: DOMENICA JARA ([id number])[facility] ([facility])[address] [place] [address] Calcium [Mass/Vol] 9.3 mg/dL Normal 8.4-10.2 [facility] Comment on above: Performed By: #### L AB149, [id number], LAB17, ZVX552, HFZ331 ####Recycling Coordinator: DOMENICA JARA ([id number])[facility] ([facility])[address] [place] [address] Chloride [Moles/Vol] 91 mmol/L Low 98-107 [facility] Comment on above: Performed By: #### L AB149, [id number], LAB17, TNS312, COC948 ####Recycling Coordinator: DOMENICA JARA ([id number])[facility] ([facility])[address] [place] [address] CO2 [Moles/Vol] 28 mmol/L Normal 22-29 [facility] Comment on above: Performed By: #### L AB149, [id number], LAB17, ZGD693, TVS849 ####Recycling Coordinator: DOMENICA JARA ([id number])[facility] ([facility])[address] [place] [address] Creatinine [Mass/Vol] 2.89 mg/dL High 0.72-1.25 [facility] Comment on above: Performed By: #### L AB149, [id number], LAB17, KPI384, CNA595 ####Recycling Coordinator: DOMENICA JARA ([id number])[facility])[address] [place] [address] GLOMERULAR FILTRATION RATE ML/MIN/1.73 SQ M.PREDICTED 24.3 mL/min/1.73m*2 Low >60.0 [facility] Comment on above: Result Comment: Calc ulation based on the Chronic Kidney Disease Epidemiology Collaboration (CKD-EPI) equation refit without adjustment for race Performed By: #### L AB149, [id number], LAB17, XPY767, TWN981 ####Recycling Coordinator: DOMENICA JARA ([id number])[facility])[address] [place] [address] Glucose [Mass/Vol] 74 mg/dL Normal 74-100 [facility] Comment on above: Performed By: #### L AB149, [id number], LAB17, FPJ309, EXX486 ####Recycling Coordinator: DOMENICA JARA ([id number])[address] Potassium [Moles/Vol] 3.1 mmol/L Low 3.5-5.1 [facility] Comment on above: Result Comment: [facility] potassium values may be up to 0.5 mmol/L lower than serum values. Performed By: #### L AB149, [id number], LAB17, CTH226, SVL238 ####Recycling Coordinator: DOMENICA JARA ([id number])[facility])[address] [place] [address] Protein [Mass/Vol] 6.8 g/dL Normal 6.4-8.3 [facility] Comment on above: Performed By: #### L AB149, [id number], LAB17, UXV954, XPD150 ####Recycling Coordinator: DOMENICA JARA ([id number])[address] Sodium [Moles/Vol] 131 mmol/L Low 136-145 [facility] Comment on above: Performed By: #### L AB149, [id number], LAB17, PWZ809, TBP834 ####Recycling Coordinator: DOMENICA JARA ([id number])[facility] ([facility])[address] [place] [address] [place] Urea nitrogen [Mass/Vol] 29 mg/dL High 9-23 [facility] Comment on above: Performed By: #### L AB149, [id number], LAB17, EGI137, EFK843 ####Recycling Coordinator: DOMENICA JARA ([id number])[facility] ([facility])[address] [place] [address] CRP [Mass/Vol]on 02-21-2025 Interpretation and review of laboratory results Abnormal [facility] Comprehensive metabolic 1998 panelon 02-21-2025 Albumin [Mass/Vol] 2 g/dL Low 3.5 - 5.0 g/dL [facility] ALP [Catalytic activity/Vol] 120 U/L 40 - 150 U/L [facility] ALT [Catalytic activity/Vol] 8 U/L NINF - 40 U/L [facility] Anion gap [Moles/Vol] 12 mmol/L 3 - 13 mmol/L [facility] AST [Catalytic activity/Vol] 39 U/L High NINF - 34 U/L [facility] Bilirubin [Mass/Vol] 0.8 mg/dL NINF - 1.2 mg/dL [facility] Calcium [Mass/Vol] 9.3 mg/dL 8.4 - 10. 2 mg/dL [facility] Chloride [Moles/Vol] 91 mmol/L Low 98 - 10 7 mmol/L [facility] CO2 [Moles/Vol] 28 mmol/L 22 - 29 mmol/L [facility] Creatinine [Mass/Vol] 2.89 mg/dL High 0.72 - 1.25 mg/dL [facility] GFR/1.73 sq M.predicted (S/P/Bld) [Vol rate/Area] 24.3 mL/min Low - PINF [facility] Glucose [Mass/Vol] 74 mg/dL 74 - 100 mg/dL [facility] Potassium [Moles/Vol] 3.1 mmol/L Low 3.5 - 5.1 mmol/L [facility] Protein [Mass/Vol] 6.8 g/dL 6.4 - 8.3 g/dL [facility] Sodium [Moles/Vol] 131 mmol/L Low 136 - 145 mmol/L [facility] Urea nitrogen [Mass/Vol] 29 mg/dL High 9 - 23 mg/d L [facility] Consulton 02-21-2025 Consult Normal [facility] Consult Normal [facility] Consult Normal [facility] Consult Normal [facility] Laboratory - Chemistry and C hemistry - challengeon 02-21-2025 CRP [Mass/Vol] 60.3 mg/L High NINF - 5.0 mg/L [facility] Procalcitonin [Mass/Vol] 0.68 ng/mL High PROSPER F - 0.07 ng/mL [facility] Magnesium [Mass/Vol] 2.2 mg/dL 1.6 - 2 .6 mg/dL [facility] MAGNESIUMon 02-21-2025 Magnesium [Mass/Vol] 2.2 mg/dL Normal 1.6-2.6 [facility] Comment on above: Result Comment: ARPAN Kaplan COMMENTS:Higher values can be expected in females during menses. Performed By: #### L AB149, [id number], LAB17, RUM887, LET874 ####Recycling Coordinator: DOMENICA JARA ([id number])[facility] ([address] Magnesium [Mass/Vol]on 02-21 Interpretation and review of laboratory results Normal [facility] No Panel Informationon 02-21 Interpretation and review of laboratory results Abnormal [facility] Nursing Noteon 02-21-2025 Nursing Note Pt ordered [employer] food. Assisted pt to sit up on bedside to eat. Normal [facility] Nursing Note Normal [facility] Nursing Note Pt declining scheduled medications until after RN calls facility to see if he is actively taking those medications" per pt request. This RN spoke with RN at [facility] to verify medications that pt is taking. Normal [facility] Nursing Note Normal [facility] Nursing Note Pt removed NC from nose, stated he doesn't need it anymore. Respiratory Therapy came in to give pt, scheduled breathing treatment, pt stated he didn't need one." Normal [facility] Nursing Note Normal [facility] PHOSPHORUSon 02-21-2025 Phosphate [Mass/Vol] 2.0 mg/dL Low 2.3-4.7 [facility] Comment on above: Performed By: #### L AB149, [id number], LAB17, ANV778, GOS359 ####Recycling Coordinator: DOMENICA JARA ([id number])[facility] ([facility])[address] [place] [address] PROCALCITONIN TESTon 025 PROCALCITONIN 0.68 ng/mL High <0.07 [facility] Comment on above: Result Comment: ARPAN R COMMENTS:PCT <0.50 = Low risk of severe sepsis and/or septic shock.PCT >2.00 = High risk of severe sepsis and/or septic shock. Performed By: #### L AB149, [id number], LAB17, INC779, ZXG759 ####Recycling Coordinator: DOMENICA JARA ([id number])[facility] ([facility])[address] [place] [address] [place] Phosphate [Moles/Vol]on 01-26 Phosphate [Mass/Vol] 2 mg/dL Low 2.3 - 4 .7 mg/dL [facility] Procalcitonin [Mass/Vol]on 0 02-21-2025 Interpretation and review of laboratory results Abnormal [facility] Progress Noteon 02-21-2025 Progress Note PHYSICAL THERAPY [facility] Name/MRN: Jair Snyder ([id number]) Date: 02/21/2025 Pt declined to work with therapy at this time, stating he wanted to eat first. Will reattempt at a later date. Sangeeta Sarabia, PT Normal [facility] Progress Note Normal [facility] Progress Note Normal [facility] RESPIRATORY PATHOGENS PANEL BY PCRon 02-21-2025 RESPIRATORY PATHOGENS PANEL BY PCR Normal [facility] Comment on above: Performed By: #### L [id number] ####Recycling Coordinator: DOMENICA JARA ([id number])[facility] ([facility])[address] [place] [address] Respiratory pathogens DNA an d RNA panel EMMANUEL+non-probe (Nph)on 02-21-2025 Adenovirus Not detected Not Detected [facility] B. pertussis DNA EMMANUEL+probe Ql (Unsp spec) Not detected Not Detected [facility] Bordetella parapertussis Not detected Not Detec yo [facility] Chlamydia pneumoniae Not detected Not Detected [facility] Coronavirus 229E Not detected Not Detected [facility] Coronavirus HKU1 Not detected Not Detected [facility] Coronavirus NL63 Not detected Not Detected [facility] Coronavirus OC43 Not detected Not Detected [facility] FLUAV RNA EMMANUEL+non-probe Ql (Nph) Not detected Not Detected [facility] FLUBV RNA EMMANUEL+non-probe Ql (Nph) Not detected Not Detected [facility] Human Metapneumovirus Not detected Not Detected [facility] Human Rhinovirus/Enterovirus Not detected Not Detected [facility] Interpretation and review of laboratory results Normal [facility] Mycoplasma pneumoniae Not detected Not Detected [facility] Parainfluenza 1 Not detected Not Detected [facility] Parainfluenza 2 Not detected Not Detected [facility] Parainfluenza 3 Not detected Not Detected [facility] Parainfluenza 4 Not detected Not Detected [facility] Respiratory Syncytial Virus Not detected Not Detected [facility] SARS-CoV-2 (COVID-19) RNA EMMANUEL+non-probe Ql (Nph) Not detected Not Detected [facility] aPTT Coag (Bld) [Time]on aPTT Coag (PPP) [Time] 50.3 s High 20.0 - 30.5 s [facility] Interpretation and review of laboratory results Abnormal [facility] aPTT Coag (PPP) [Time] 32.6 s High 20.0 - 30.5 s [facility] Interpretation and review of laboratory results Abnormal [facility] APTTon 02-20-2025 aPTT Coag (Bld) [Time] 26.2 s Normal 20.0-30.5 [facility] Comment on above: Result Comment: ARPAN Kaplan COMMENTS:NOTE: The therapeutic time for Heparin anticoagulation, based on Xa activity inhibition, is an APTT of 46-80 seconds. Performed By: #### L AB320, KCX348 ####Recycling Coordinator: FENG CONSTANTINO ([phone])[facility] ([facility])[address] [place] [address] Absolute lymphocyte countOrd ered By: Kayley Melendrez on 02-20-2025 Lymphocytes Auto (Unsp spec) [#/Vol] 1.13 10*3/uL 0.83-4.51 [facility] Absolute neutrophil countOrd ered By: Kayley Melendrez on 02-20-2025 Neutrophils (Bld) [#/Vol] 4.6 10*3/uL 2.0-7.7 [facility] Anion gap in Serum or Plasma Ordered By: Kayley Melendrez on 02-20-2025 Anion gap [Moles/Vol] 12 mmol/L 5-15 [facility] Automated lymphocyte count a s percentage of total leukocytesOrdered By: Kayley Melendrez on 02-20-2025 Lymphocytes/100 WBC Auto (Unsp spec) 16.4 % Low 19-41 [facility] BASIC METABOLIC PANELon 01-26 Anion gap [Moles/Vol] 12 mmol/L Normal 3-13 [facility] Comment on above: Performed By: #### L AB15 ####Recycling Coordinator: FENG CONSTANTINO ([id number])[facility] ([facility])[address] Calcium [Mass/Vol] 9.6 mg/dL Normal 8.4-10.2 [facility] Comment on above: Performed By: #### L AB15 ####Recycling Coordinator: FENG CONSTANTINO ([id number])[facility] ([facility])[address] Chloride [Moles/Vol] 92 mmol/L Low 98-107 [facility] Comment on above: Performed By: #### L AB15 ####Recycling Coordinator: FENG CONSTANTINO ([phone])[facility] ([facility])[address] CO2 [Moles/Vol] 29 mmol/L Normal 22-29 [facility] Comment on above: Performed By: #### L AB15 ####Recycling Coordinator: FENG CONSTANTINO ([id number])[facility] ([facility])[address] Creatinine [Mass/Vol] 2.57 mg/dL High 0.72-1.25 [facility] Comment on above: Performed By: #### L AB15 ####Recycling Coordinator: FENG CONSTANTINO ([id number])[facility] ([facility])[address] [place] [address] [place] GLOMERULAR FILTRATION RATE ML/MIN/1.73 SQ M.PREDICTED 27.9 mL/min/1.73m*2 Low >60.0 [facility] Comment on above: Result Comment: Calc ulation based on the Chronic Kidney Disease Epidemiology Collaboration (CKD-EPI) equation refit without adjustment for race Performed By: #### L AB15 ####Recycling Coordinator: FENG CONSTANTINO ([id number])[facility] ([facility])[address] Glucose [Mass/Vol] 80 mg/dL Normal 74-100 [facility] Comment on above: Performed By: #### L AB15 ####Recycling Coordinator: FENG CONSTANTINO ([id number])[facility] ([facility])[address] Potassium [Moles/Vol] 3.1 mmol/L Low 3.5-5.1 [facility] Comment on above: Result Comment: [facility] potassium values may be up to 0.5 mmol/L lower than serum values. Performed By: #### L AB15 ####Recycling Coordinator: FENG CONSTANTINO ([id number])[facility] ([facility])[address] [place] [address] [place] Sodium [Moles/Vol] 133 mmol/L Low 136-145 [facility] Comment on above: Performed By: #### L AB15 ####Recycling Coordinator: FENG CONSTANTINO ([id number])[facility] ([facility])[address] [place] [address] [place] Urea nitrogen [Mass/Vol] 29 mg/dL High 9-23 [facility] Comment on above: Performed By: #### L AB15 ####Recycling Coordinator: FENG CONSTANTINO ([id number])[facility] CINDY ([facility])[address] [place] [address] BUN/creatinine ratioOrdered By: Kayley Melendrez on 02-20-2025 Urea nitrogen/Creatinine [Mass ratio] 11.5 mg/mg 10-20 [facility] Basic metabolic 1998 panelon 02-20-2025 Anion gap [Moles/Vol] 12 mmol/L 3 - 13 mmol/L [facility] Calcium [Mass/Vol] 9.6 mg/dL 8.4 - 10. 2 mg/dL [facility] Chloride [Moles/Vol] 92 mmol/L Low 98 - 10 7 mmol/L [facility] CO2 [Moles/Vol] 29 mmol/L 22 - 29 mmol/L [facility] Creatinine [Mass/Vol] 2.57 mg/dL High 0.72 - 1.25 mg/dL [facility] GFR/1.73 sq M.predicted (S/P/Bld) [Vol rate/Area] 27.9 mL/min Low - PINF [facility] Glucose [Mass/Vol] 80 mg/dL 74 - 100 mg/dL [facility] Interpretation and review of laboratory results Abnormal [facility] Potassium [Moles/Vol] 3.1 mmol/L Low 3.5 - 5.1 mmol/L [facility] Sodium [Moles/Vol] 133 mmol/L Low 136 - 145 mmol/L [facility] Urea nitrogen [Mass/Vol] 29 mg/dL High 9 - 23 mg/d L [facility] Basophil percentageOrdered B y: Kayley Melendrez on 02-20-2025 Basophils/100 WBC (Bld) 1.4 % High 0-1 [facility] Bilirubin, totalOrdered By: Kayley Melendrez on 02-20-2025 Bilirubin [Mass/Vol] 0.64 mg/dL 0.00-1.30 [facility] CBC (HEMOGRAM)on 02-20-2025 Erythrocyte distribution width (RBC) [Ratio] 18.8 % High 11.5-15.0 [facility] Comment on above: Performed By: #### L AB294 ####Recycling Coordinator: FENGLINO CONSTANTINO ([id number])[facility] ([facility])[address] [place] [address] Hematocrit (Bld) [Volume fraction] 26.8 % Low 40.0-52.0 [facility] Comment on above: Performed By: #### L AB294 ####Recycling Coordinator: FENGLINO CONSTANTINO ([id number])[facility]Matt [facility] ([facility])[address] Hemoglobin (Bld) [Mass/Vol] 8.7 g/dL Low 13.0-18.0 [facility] Comment on above: Performed By: #### L AB294 ####Recycling Coordinator: FENG CONSTANTINO ([id number])[facility] GAL[facility] ([facility])[address] [place] [address] MCH (RBC) [Entitic mass] 28.7 pg Normal 26.0-34.0 [facility] Comment on above: Performed By: #### L AB294 ####Recycling Coordinator: FENGLINO CONSTANTINO ([id number])[facility]Matt [facility] ([facility])[address] [place] [address] MCHC 32.5 % Normal 30.5-36.0 [facility] Comment on above: Performed By: #### L AB294 ####Recycling Coordinator: FENG COLEGEORGE ([phone])[facility]Matt [facility] ([facility])[address] [place] [address] MCV (RBC) [Entitic vol] 88.4 fL Normal 77.0-99.0 [facility] Comment on above: Performed By: #### L AB294 ####Recycling Coordinator: FENG DOUGIE ([id number])[facility]Matt [facility] ([facility])[address] Platelet mean volume (Bld) [Entitic vol] 8.5 fL Low 9.0-12.7 [facility] Comment on above: Performed By: #### L AB294 ####Recycling Coordinator: FENG CONSTANTINO ([id number])[facility] ([facility])[address] Platelets (Bld) [#/Vol] 312 10*3/uL Normal 140-440 [facility] Comment on above: Performed By: #### L AB294 ####Recycling Coordinator: FENG CONSTANTINO ([id number])[facility] ([facility])[address] RBC (Bld) [#/Vol] 3.03 10*6/uL Low 4.40-5.90 [facility] Comment on above: Performed By: #### L AB294 ####Recycling Coordinator: FENG CONSTANTINO ([id number])[facility] ([facility])[address] [place] [address] WBC (Bld) [#/Vol] 9.4 10*3/uL Normal 3.6-10.7 [facility] Comment on above: Performed By: #### L AB294 ####Recycling Coordinator: FENG CONSTANTINO ([id number])[facility] ([facility])[address] CBC W/Diff, Automatedon 05-2 Absolute Lymph 1.13 X10 3/uL Normal 0.83-4.51 [facility] Comment on above: Order Comment: 413.2 Performed By: #### L 300.3900 #### [facility] [address] [place], [address] Absolute Neut 4.6 X10 3/uL Normal 2.0-7.7 [facility] Comment on above: Order Comment: 413.2 Performed By: #### L 300.3900 #### [facility] [address] [place], [address] Basophils/100 WBC (Bld) 1.4 % High 0-1 [facility] Comment on above: Order Comment: 413.2 Performed By: #### L 300.3900 #### [facility] [address] [place], [address] Eosinophils/100 WBC (Bld) 2.5 % Normal 0-5 [facility] Comment on above: Order Comment: 413.2 Performed By: #### L 300.3900 #### [facility] [address] [place], [address] Erythrocyte distribution width (RBC) [Ratio] 19.4 % High 11.6-14.6 [facility] Comment on above: Order Comment: 413.2 Performed By: #### L 300.3900 #### [facility] [address] [place], [address] Hematocrit (Bld) [Volume fraction] 25.9 % Low 40-54 [facility] Comment on above: Order Comment: 413.2 Performed By: #### L 300.3900 #### [facility] [address] [place], [address] Hemoglobin (Bld) [Mass/Vol] 8.5 g/dL Low 13.0-16.5 [facility] Comment on above: Order Comment: 413.2 Performed By: #### L 300.3900 #### [facility] [address] [place], [address] IG% 0.400 Normal 0.0-0.9 [facility] Comment on above: Order Comment: 413.2 Result Comment: IG% - Immature Granulocytes (promyelocytes, myelocytes and metamyelocytes) > 1% indicates that a LEFT SHIFT is Present. Performed By: #### L 300.3900 #### [facility] [address] [place], [address] Lymphocytes/100 WBC (Bld) 16.4 % Low 19-41 [facility] Comment on above: Order Comment: 413.2 Performed By: #### L 300.3900 #### [facility] [address] [place], [address] MCH (RBC) [Entitic mass] 30.1 pg Normal 27.0-32.0 [facility] Comment on above: Order Comment: 413.2 Performed By: #### L 300.3900 #### [facility] [address] [place], [address] MCHC (RBC) [Mass/Vol] 32.8 g/dL Normal 32-36 [facility] Comment on above: Order Comment: 413.2 Performed By: #### L 300.3900 #### [facility] [address] [place], [address] MCV (RBC) [Entitic vol] 91.8 fL Normal 80-94 [facility] Comment on above: Order Comment: 413.2 Performed By: #### L 300.3900 #### [facility] [address] [place], [address] Monocytes/100 WBC (Bld) 12.0 % High 0-10 [facility] Comment on above: Order Comment: 413.2 Performed By: #### L 300.3900 #### [facility] [address] [place], [address] Neutrophils/100 WBC (Bld) 67.3 % Normal 47-70 [facility] Comment on above: Order Comment: 413.2 Performed By: #### L 300.3900 #### [facility] [address] [place], [address] Nucleated RBC (Bld) [#/Vol] 0 10*3/uL Normal 0-5 [facility] Comment on above: Order Comment: 413.2 Performed By: #### L 300.3900 #### [facility] [address] [place], [address] Platelet mean volume (Bld) [Entitic vol] 9.0 fL Normal 6.2-12.0 [facility] Comment on above: Order Comment: 413.2 Performed By: #### L 300.3900 #### [facility] [address] [place], [address] Platelets (Bld) [#/Vol] 322 10*3/uL Normal 150-450 [facility] Comment on above: Order Comment: 413.2 Performed By: #### L 300.3900 #### [facility] [address] [place], [address] RBC (Bld) [#/Vol] 2.82 10*6/uL Low 4.6-6.2 [facility] Comment on above: Order Comment: 413.2 Performed By: #### L 300.3900 #### [facility] [address] [place], [address] RDW SD 63.5 fl High 35.1-43.9 [facility] Comment on above: Order Comment: 413.2 Performed By: #### L 300.3900 #### [facility] [address] [place], [address] WBC (Bld) [#/Vol] 6.9 10*3/uL Normal 4.4-11.0 [facility] Comment on above: Order Comment: 413.2 Performed By: #### L 300.3900 #### [facility] [address] [place], [address] CBC panel Auto (Bld)on 02-20 Erythrocyte distribution width (RBC) [Ratio] 18.8 % High 11.5 - 15.0 % [facility] REVENTIVE Hematocrit (Bld) [Volume fraction] 26.8 % Low 40.0 - 52.0 % [facility] Hemoglobin (Bld) [Mass/Vol] 8.7 g/dL Low 13.0 - 18.0 g/dL [facility] REVENTIVE Interpretation and review of laboratory results Abnormal [facility] REVENTIVE MCH (RBC) [Entitic mass] 28.7 pg 26. 0 - 34.0 pg [facility] MCHC (RBC) [Mass/Vol] 32.5 % 30.5 - 36.0 % [facility] MCV (RBC) [Entitic vol] 88.4 fL 77.0 - 99.0 fL [facility] Platelet mean volume (Bld) [Entitic vol] 8.5 fL Low 9.0 - 12.7 fL [facility] Platelets (Bld) [#/Vol] 312 10*3/uL 140 - 440 10*3/uL [facility] RBC (Bld) [#/Vol] 3.03 10*6/uL Low 4.40 - 5.9 0 10*6/uL [facility] WBC (Bld) [#/Vol] 9.4 10*3/uL 3.6 - 10.7 10*3/uL [facility] CT CHEST ANGIOGRAM W AND/OR WO IV CONTRASTon 02-20-2025 CT CHEST ANGIOGRAM W AND/OR WO IV CONTRAST Normal [facility] CTA Chest vessels WO and W c ontrast Dimitrios 02-20-2025 [facility] Radiology Study observation (narrative) [facility] CTA Chest vessels WO and W c ontrast IVOrdered By: Justo Milan on 02-20-2025 [facility] Work Phone: Carbon dioxide, total [Moles /volume] in Central venous bloodOrdered By: Kayley Melendrez on 02-20-2025 CO2 [Moles/Vol] 30.1 mmol/L 21.0-32.0 [facility] Chloride assayOrdered By: Carmen Melendrez on 02-20-2025 Chloride [Moles/Vol] 91 mmol/L Low 98-108 [facility] Comprehensive Metabolic Prof ilon 02-20-2025 Albumin [Mass/Vol] 3.0 g/dL Low 3.5-5.0 [facility] Comment on above: Order Comment: 413.2 Performed By: #### L 895.2361 #### [facility] [address] [place], [place], [address] Albumin/Globulin [Mass ratio] 0.8 {ratio} Low 0.9-2.4 [facility] Comment on above: Order Comment: 413.2 Performed By: #### L 300.3900 #### [facility] [address] [place], [address] ALK PHOS 133 U/L High 40-129 [facility] Comment on above: Order Comment: 413.2 Performed By: #### L 300.3900 #### [facility] [address] [place], [address] ALT [Catalytic activity/Vol] 13 U/L Normal <=46 [facility] Comment on above: Order Comment: 413.2 Performed By: #### L 300.3900 #### [facility] [address] [place], [address] AST [Catalytic activity/Vol] 32 U/L Normal <=37 [facility] Comment on above: Order Comment: 413.2 Performed By: #### L 300.3900 #### [facility] [address] [place], [address] Bilirubin [Mass/Vol] 0.64 mg/dL Normal 0.00-1.30 [facility] Comment on above: Order Comment: 413.2 Performed By: #### L 300.3900 #### [facility] [address] [place], [address] BUN/CRE 11.5 RATIO Normal 10-20 [facility] Comment on above: Order Comment: 413.2 Performed By: #### L 300.3900 #### [facility] [address] [place], [address] Calcium [Mass/Vol] 9.8 mg/dL Normal 7.6-11.0 [facility] Comment on above: Order Comment: 413.2 Performed By: #### L 300.3900 #### [facility] [address] [place], [address] Chloride [Moles/Vol] 91 mmol/L Low 98-108 [facility] Comment on above: Order Comment: 413.2 Performed By: #### L 300.3900 #### [facility] [address] [place], [address] CO2 [Moles/Vol] 30.1 mmol/L Normal 21.0-32.0 [facility] Comment on above: Order Comment: 413.2 Performed By: #### L 300.3900 #### [facility] [address] [place], [address] Creatinine [Mass/Vol] 3.87 mg/dL High 0.70-1.20 [facility] Comment on above: Order Comment: 413.2 Performed By: #### L 300.3900 #### [facility] [address] [place], [address] GAP 12 Normal 5-15 [facility] Comment on above: Order Comment: 413.2 Performed By: #### L 300.3900 #### [facility] [address] [place], [address] GFR/1.73 sq M.predicted among non-blacks MDRD (S/P/Bld) [Vol rate/Area] 17 mL/min/{1.73_m2} Low >60 [facility] Comment on above: Order Comment: 413.2 Result Comment: mL/m in/1.73m2 CKD-EPI Creatinine Equation (2020) Performed By: #### L 300.3900 #### [facility] [address] [place], [address] Globulin (S) [Mass/Vol] 4.0 g/dL Normal 2.2-4.2 [facility] Comment on above: Order Comment: 413.2 Performed By: #### L 300.3900 #### [facility] [address] [place], [address] Glucose [Mass/Vol] 78 mg/dL Normal 70-99 [facility] Comment on above: Order Comment: 413.2 Performed By: #### L 300.3900 #### [facility] [address] [place], [address] Potassium [Moles/Vol] 3.0 mmol/L Low 3.3-5.1 [facility] Comment on above: Order Comment: 413.2 Performed By: #### L 300.3900 #### [facility] [address] [place], [address] Sodium [Moles/Vol] 134 mmol/L Normal 133-145 [facility] Comment on above: Order Comment: 413.2 Performed By: #### L 300.3900 #### [facility] [address] [place], [address] T PROT 6.9 g/dL Normal 5.9-8.4 [facility] Comment on above: Order Comment: 413.2 Performed By: #### L 300.3900 #### [facility] [address] [place], [address] Urea nitrogen [Mass/Vol] 44 mg/dL High 4-19 [facility] Comment on above: Order Comment: 413.2 Performed By: #### L 300.3900 #### [facility] [address] [place], [address] ED Nursing Noteon 02-20-2025 ED Nursing Note Called report to 3W nurse who will be taking over pt care. Normal [facility] ED Nursing Note Attempted to reposition pt and have him sit up but pt states "he feels fine and does not want to sit up"despite coughing up blood. Normal [facility] ED Nursing Note Pt placed on 2L NC due to O2 saturation of 90%. Currently 97 on 2L Normal [facility] ED Nursing Note Suction turned on at this time for pt due to increased coughing up of blood Normal [facility] ED Nursing Note Normal [facility] ED Nursing Note Normal [facility] ED Provider Noteon ED Provider Note Normal [facility] Eosinophil percentageOrdered By: Kayley Melendrez on 02-20-2025 Eosinophils/100 WBC (Bld) 2.5 % 0-5 [facility] Erythrocyte distribution wid th ratioOrdered By: Kayley Melendrez on 02-20-2025 Erythrocyte distribution width (RBC) [Ratio] 19.4 % High 11.6-14.6 [facility] Erythrocyte distribution wid th standard deviationOrdered By: Kayley Melendrez on 02-20-2025 Erythrocyte distribution width (RBC) [Ratio] 63.5 fl High 35.1-43.9 [facility] Glomerular filtration rate ( GFR) estimation/1.73 sq m using serum, plasma, or whole bOrdered By: Kayley Melendrez on 02-20-2025 GFR/1.73 sq M.predicted among non-blacks MDRD (S/P/Bld) [Vol rate/Area] 17 mL/min/{1.73_m2} Low >60 [facility] Comment on above: mL/min/1.73m2 CKD-EP I Creatinine Equation (2020) Hematocrit Auto (Bld) [Volum e fraction]Ordered By: Kayley Melendrez on 02-20-2025 Hematocrit (Bld) [Volume fraction] 25.9 % Low 40-54 [facility] Hemoglobin measurementOrdere d By: Kayley Melendrez on 02-20-2025 Hemoglobin (Bld) [Mass/Vol] 8.5 g/dL Low 13.0-16.5 [facility] Immature granulocytes/100 WB C Auto (Bld)Ordered By: Kayley Melendrez on 02-20-2025 Immature granulocytes/100 WBC (Bld) 0.400 % 0.0-0.9 [facility] Comment on above: IG% - Immature Granu locytes (promyelocytes, myelocytes and metamyelocytes) > 1% indicates that a LEFT SHIFT is Present. International normalized rat io (INR) calculationOrdered By: Kayley Melendrez on 02-20-2025 INR Coag (Bld) [Relative time] 1.4 {INR} [facility] - Chemistry and C hemistry - challengeOrdered By: Kayley Melendrez on 02-20-2025 AST [Catalytic activity/Vol] 32 U/L <38 [facility] - Coagulationon 0 02-20-2025 PT Coag (Bld) [Time] 14.7 s High 9.0 - 12.0 s [facility] MCV (mean corpuscular volume ) determinationOrdered By: Kayley Melendrez on 02-20-2025 MCV (RBC) [Entitic vol] 91.8 fL 80-94 [facility] Mean corpuscular hemoglobin (MCH) determinationOrdered By: Kayley Melendrez on 02-20-2025 MCH (RBC) [Entitic mass] 30.1 pg 27.0-32.0 [facility] Mean corpuscular hemoglobin concentration (MCHC) determinationOrdered By: Kayley Melendrez on 02-20-2025 MCHC (RBC) [Mass/Vol] 32.8 g/dL 32-36 [facility] Mean platelet volume determi nationOrdered By: Kayley Melendrez on 02-20-2025 Platelet mean volume (Bld) [Entitic vol] 9.0 fL 6.2-12.0 [facility] Monocyte percentageOrdered B y: Kayley Melendrez on 02-20-2025 Monocytes/100 WBC (Bld) 12.0 % High 0-10 [facility] Neutrophil percentageOrdered By: Kayley Melendrez on 02-20-2025 Neutrophils/100 WBC (Bld) 67.3 % 47-70 [facility] No Panel Informationon 02-20 [facility] Nucleated red blood cell per centageOrdered By: Kayley Melendrez on 02-20-2025 Nucleated RBC/100 WBC (Bld) [Ratio] 0 % 0-5 [facility] Nursing Noteon 02-20-2025 Nursing Note Pt arrived on floor via [employer] transport Normal [facility] PROTHROMBIN TIMEon INR Coag (PPP) [Relative time] 1.4 {INR} High 0.9-1.1 [facility] Comment on above: Result Comment: Vaughn [...] Myocardial Infarction Performed By: #### L [id number], [id number] ####Recycling Coordinator: FENG CONSTANTINO ([id number])[facility] [place] [address] PT Coag (PPP) [Time] 14.7 s High 9.0-12.0 [facility] Comment on above: Performed By: #### L [id number], [id number] ####Recycling Coordinator: FENG CONSTANTINO ([phone])[facility] ([facility])[address] [place] [address] PT Coag (Bld) [Time]on 02-20 INR Coag (PPP) [Relative time] 1.4 {INR} High 0.9 - 1.1 [facility] Interpretation and review of laboratory results Abnormal [facility] Platelet countOrdered By: Carmen Melendrez on 02-20-2025 Platelets (Bld) [#/Vol] 322 10*3/uL 150-450 [facility] Potassium measurement (mass/ volume)Ordered By: Kayley Melendrez on 02-20-2025 Potassium (Unsp spec) [Mass/Vol] 3.0 mmol/L Low 3.3-5.1 [facility] Prothrombin Time w/INRon INR Coag (PPP) [Relative time] 1.4 {INR} Normal [facility] Comment on above: Order Comment: 413.2 Performed By: #### L 300.1383 #### [facility] [address] [place], [address] PT Coag (PPP) [Time] 17.5 s High 11.7-14.9 [facility] Comment on above: Order Comment: 413.2 Performed By: #### L 666.6927 #### [facility] [place], [address] Prothrombin timeOrdered By: Kayley Melendrez on 02-20-2025 PT Coag (PPP) [Time] 17.5 s High 11.7-14.9 [facility] RBC Auto (Bld) [#/Vol]Ordere d By: Kayley Melendrez on 02-20-2025 RBC (Bld) [#/Vol] 2.82 10*6/uL Low 4.6-6.2 [facility] Serum creatinine measurement (mass/volume)Ordered By: Kayley Melendrez on 02-20-2025 Creatinine [Mass/Vol] 3.87 mg/dL High 0.70-1.20 [facility] Serum globulin measurementOr dered By: Kayley Melendrez on 02-20-2025 Globulin (S) [Mass/Vol] 4.0 g/dL 2.2-4.2 [facility] Serum glucose measurement (m ass/volume)Ordered By: Kayley Melendrez on 02-20-2025 Glucose [Mass/Vol] 78 mg/dL 70-99 [facility] Serum or plasma alanine mayorga otransferase (ALT) measurementOrdered By: Kayley Melendrez on 02-20-2025 ALT [Catalytic activity/Vol] 13 U/L <47 [facility] Serum or plasma albumin audrey urement (mass/volume)Ordered By: Kayley Melendrez on 02-20-2025 Albumin [Mass/Vol] 3.0 g/dL Low 3.5-5.0 [facility] Serum or plasma albumin/glob ulin mass ratioOrdered By: Kayley Melendrez on 02-20-2025 Albumin/Globulin [Mass ratio] 0.8 {ratio} Low 0.9-2.4 [facility] Serum or plasma alkaline jacob sphatase measurementOrdered By: Kayley Melendrez on 02-20-2025 ALP [Catalytic activity/Vol] 133 U/L High 40-129 [facility] Serum or plasma calcium audrey urement (mass/volume)Ordered By: Kayley Melendrez on 02-20-2025 Calcium [Mass/Vol] 9.8 mg/dL 7.6-11.0 [facility] Serum or plasma urea nitroge n measurement (mass/volume)Ordered By: Kayley Melendrez on 02-20-2025 Urea nitrogen [Mass/Vol] 44 mg/dL High 4-19 [facility] Sodium levelOrdered By: Omega Melendrez on 02-20-2025 Sodium [Moles/Vol] 134 mmol/L 133-145 [facility] Total proteinOrdered By: Lexis Melendrez on 02-20-2025 Protein [Mass/Vol] 6.9 g/dL 5.9-8.4 [facility] White blood cell (WBC) count Ordered By: Kayley Melendrez on 02-20-2025 WBC (Bld) [#/Vol] 6.9 10*3/uL 4.4-11.0 [facility] aPTT Coag (Bld) [Time]on aPTT Coag (PPP) [Time] 26.2 s 20.0 - 30.5 s [facility] Interpretation and review of laboratory results Normal [facility] International normalized rat io (INR) calculationOrdered By: Kayley Melendrez on 02-15-2025 INR Coag (Bld) [Relative time] 1.3 {INR} [facility] Prothrombin Time w/INRon INR Coag (PPP) [Relative time] 1.3 {INR} Normal [facility] Comment on above: Order Comment: 413.2 Performed By: #### L 293.2756 #### [facility] [address] [place], [address] PT Coag (PPP) [Time] 16.6 s High 11.7-14.9 [facility] Comment on above: Order Comment: 413.2 Performed By: #### L 300.3900 #### [facility] [address] [place], [address] Prothrombin timeOrdered By: Kayley Melendrez on 02-15-2025 PT Coag (PPP) [Time] 16.6 s High 11.7-14.9 [facility] Progress Noteon 02-14-2025 Progress Note Patient completed 6 week course of Amp-Sulbactam on 02/13/25 for sacral osteomyelitis. Tunneled line has since been removed. Continue to monitor off antibiotics at this time. Continue wound care. Normal [facility] Progress Note Normal [facility] International normalized rat io (INR) measurement by fingerstickOrdered By: Kayley Melendrez on 02-13-2025 INR Coag (BldC) [Relative time] 1.7 [facility] Comment on above: Critical Value > 4.0 Protime w/INR Fingerstickon 02-13-2025 INR Coag (PPP) [Relative time] 1.7 {INR} Normal [facility] Comment on above: Result Comment: Crit ical Value > 4.0 Performed By: #### L 9200.0000 #### [facility] [address] [place], [address] Protime Coagsen 19.1 SEC High 11.7-14.9 [facility] Comment on above: Performed By: #### L 9200.0000 #### [facility] [address] [place] [place], [address] Whole blood prothrombin time Ordered By: Kayley Melendrez on 02-13-2025 PT Coag (Bld) [Time] 19.1 s High 11.7-14.9 [facility] Absolute lymphocyte countOrd ered By: Kayley Melendrez on 02-12-2025 Lymphocytes Auto (Unsp spec) [#/Vol] 1.29 10*3/uL 0.83-4.51 [facility] Absolute neutrophil countOrd ered By: Kayley Melendrez on 02-12-2025 Neutrophils (Bld) [#/Vol] 4.7 10*3/uL 2.0-7.7 [facility] Anion gap in Serum or Plasma Ordered By: Kayley Melendrez on 02-12-2025 Anion gap [Moles/Vol] 12 mmol/L 5- [facility] Automated lymphocyte count a s percentage of total leukocytesOrdered By: Kayley Melendrez on 02-12-2025 Lymphocytes/100 WBC Auto (Unsp spec) 17.7 % Low [facility] BUN/creatinine ratioOrdered By: [facility] an[facility]udyla[facility] on 02-12-2025 Urea nitrogen/Creatinine [Mass ratio] 10.3 mg/mg 10 [facility] Basophil percentageOrdered B y: Kayley Melendrez on 02-12-2025 Basophils/100 WBC (Bld) 1.1 % High 0-1 [facility] Bilirubin, totalOrdered By: Kayley Melendrez on 02-12-2025 Bilirubin [Mass/Vol] 0.69 mg/dL 0.00-1.30 [facility] CBC W/Diff, Automatedon 01-25 Absolute Lymph 1.29 X10 3/uL Normal 0.83-4.51 [facility] Comment on above: Performed By: #### L 100.0100, L300.3900, L500.4050 #### [facility] [address] [place], [address] Absolute Neut 4.7 X10 3/uL Normal 2.0-7.7 [facility] Comment on above: Performed By: #### L 100.0100, L300.3900, L500.4050 #### [facility] [address] [place], [address] Basophils/100 WBC (Bld) 1.1 % High 0-1 [facility] Comment on above: Performed By: #### L 100.0100, L300.3900, L500.4050 #### [facility] [address] [place], [address] Eosinophils/100 WBC (Bld) 4.7 % Normal 0-5 [facility] Comment on above: Performed By: #### L 100.0100, L300.3900, L500.4050 #### [facility] [address] [place], [address] Erythrocyte distribution width (RBC) [Ratio] 18.3 % High 11.6-14.6 [facility] Comment on above: Performed By: #### L 100.0100, L300.3900, L500.4050 #### [facility] [address] [place], [address] Hematocrit (Bld) [Volume fraction] 24.6 % Low 40-54 [facility] Comment on above: Performed By: #### L 100.0100, L300.3900, L500.4050 #### [facility] [address] [place], [address] Hemoglobin (Bld) [Mass/Vol] 8.0 g/dL Low 13.0-16.5 [facility] Comment on above: Performed By: #### L 100.0100, L300.3900, L500.4050 #### [facility] [address] [place], [address] IG% 0.500 Normal 0.0-0.9 [facility] Comment on above: Result Comment: IG% - Immature Granulocytes (promyelocytes, myelocytes and metamyelocytes) > 1% indicates that a LEFT SHIFT is Present. Performed By: #### L 100.0100, L300.3900, L500.4050 #### [facility] [address] [place], [address] Lymphocytes/100 WBC (Bld) 17.7 % Low 19-41 [facility] Comment on above: Performed By: #### L 100.0100, L300.3900, L500.4050 #### [facility] [address] [place], [address] MCH (RBC) [Entitic mass] 29.3 pg Normal 27.0-32.0 [facility] Comment on above: Performed By: #### L 100.0100, L300.3900, L500.4050 #### [facility] [address] [place], [address] MCHC (RBC) [Mass/Vol] 32.5 g/dL Normal 32-36 [facility] Comment on above: Performed By: #### L 100.0100, L300.3900, L500.4050 #### [facility] [address] [place], [address] MCV (RBC) [Entitic vol] 90.1 fL Normal 80-94 [facility] Comment on above: Performed By: #### L 100.0100, L300.3900, L500.4050 #### [facility] [address] [place], [address] Monocytes/100 WBC (Bld) 11.9 % High 0-10 [facility] Comment on above: Performed By: #### L 100.0100, L300.3900, L500.4050 #### [facility] [address] [place], [address] Neutrophils/100 WBC (Bld) 64.1 % Normal 47-70 [facility] Comment on above: Performed By: #### L 100.0100, L300.3900, L500.4050 #### [facility] [address] [place], [address] Nucleated RBC (Bld) [#/Vol] 0 10*3/uL Normal 0-5 [facility] Comment on above: Performed By: #### L 100.0100, L300.3900, L500.4050 #### [facility] [address] [place], [address] Platelet mean volume (Bld) [Entitic vol] 9.2 fL Normal 6.2-12.0 [facility] Comment on above: Performed By: #### L 100.0100, L300.3900, L500.4050 #### [facility] [address] [place], [address] Platelets (Bld) [#/Vol] 294 10*3/uL Normal 150-450 [facility] Comment on above: Performed By: #### L 100.0100, L300.3900, L500.4050 #### [facility] [address] [place], [address] RBC (Bld) [#/Vol] 2.73 10*6/uL Low 4.6-6.2 [facility] Comment on above: Performed By: #### L 100.0100, L300.3900, L500.4050 #### [facility] [address] [place], [address] RDW SD 59.4 fl High 35.1-43.9 [facility] Comment on above: Performed By: #### L 100.0100, L300.3900, L500.4050 #### [facility] [address] [place], [address] WBC (Bld) [#/Vol] 7.3 10*3/uL Normal 4.4-11.0 [facility] Comment on above: Performed By: #### L 100.0100, L300.3900, L500.4050 #### [facility] [address] [place], [address] Carbon dioxide, total [Moles /volume] in Central venous bloodOrdered By: Kayley Melendrez on 02-12-2025 CO2 [Moles/Vol] 28.4 mmol/L 21.0-32.0 [facility] Chloride assayOrdered By: Carmen Melendrez on 02-12-2025 Chloride [Moles/Vol] 91 mmol/L Low 98-108 [facility] Comprehensive Metabolic Prof ilon 02-12-2025 Albumin [Mass/Vol] 2.9 g/dL Low 3.5-5.0 [facility] Comment on above: Performed By: #### L 100.0100, L300.3900, L500.4050 #### [facility] [address] [place], [address] Albumin/Globulin [Mass ratio] 0.7 {ratio} Low 0.9-2.4 [facility] Comment on above: Performed By: #### L 100.0100, L300.3900, L500.4050 #### [facility] [address] [place], [address] ALK PHOS 177 U/L High 40-129 [facility] Comment on above: Performed By: #### L 100.0100, L300.3900, L500.4050 #### [facility] [address] [place], [address] ALT [Catalytic activity/Vol] 9 U/L Normal <=46 [facility] Comment on above: Performed By: #### L 100.0100, L300.3900, L500.4050 #### [facility] [address] [place], [address] AST [Catalytic activity/Vol] 34 U/L Normal <=37 [facility] Comment on above: Performed By: #### L 100.0100, L300.3900, L500.4050 #### [facility] [address] [place], [address] Bilirubin [Mass/Vol] 0.69 mg/dL Normal 0.00-1.30 [facility] Comment on above: Performed By: #### L 100.0100, L300.3900, L500.4050 #### [facility] [address] [place], [address] BUN/CRE 10.3 RATIO Normal 10-20 [facility] Comment on above: Performed By: #### L 100.0100, L300.3900, L500.4050 #### [facility] [address] [place], [address] Calcium [Mass/Vol] 9.9 mg/dL Normal 7.6-11.0 [facility] Comment on above: Performed By: #### L 100.0100, L300.3900, L500.4050 #### [facility] [address] [place], [address] Chloride [Moles/Vol] 91 mmol/L Low 98-108 [facility] Comment on above: Performed By: #### L 100.0100, L300.3900, L500.4050 #### [facility] [address] [place], [address] CO2 [Moles/Vol] 28.4 mmol/L Normal 21.0-32.0 [facility] Comment on above: Performed By: #### L 100.0100, L300.3900, L500.4050 #### [facility] [address] [place], [address] Creatinine [Mass/Vol] 4.17 mg/dL High 0.70-1.20 [facility] Comment on above: Performed By: #### L 100.0100, L300.3900, L500.4050 #### [facility] [address] [place], [address] GAP 12 Normal 5-15 [facility] Comment on above: Performed By: #### L 100.0100, L300.3900, L500.4050 #### [facility] [address] [place], [address] GFR/1.73 sq M.predicted among non-blacks MDRD (S/P/Bld) [Vol rate/Area] 16 mL/min/{1.73_m2} Low >60 [facility] Comment on above: Result Comment: mL/m in/1.73m2 CKD-EPI Creatinine Equation (2020) Performed By: #### L 100.0100, L300.3900, L500.4050 #### [facility] [address] [place], [address] Globulin (S) [Mass/Vol] 4.2 g/dL Normal 2.2-4.2 [facility] Comment on above: Performed By: #### L 100.0100, L300.3900, L500.4050 #### [facility] [address] [place], [address] Glucose [Mass/Vol] 77 mg/dL Normal 70-99 [facility] Comment on above: Performed By: #### L 100.0100, L300.3900, L500.4050 #### [facility] [address] [place], [address] Potassium [Moles/Vol] 3.2 mmol/L Low 3.3-5.1 [facility] Comment on above: Performed By: #### L 100.0100, L300.3900, L500.4050 #### [facility] [address] [place], [address] Sodium [Moles/Vol] 131 mmol/L Low 133-145 [facility] Comment on above: Performed By: #### L 100.0100, L300.3900, L500.4050 #### [facility] [address] [place], [address] T PROT 7.1 g/dL Normal 5.9-8.4 [facility] Comment on above: Performed By: #### L 100.0100, L300.3900, L500.4050 #### [facility] [address] [place], [address] Urea nitrogen [Mass/Vol] 43 mg/dL High 4-19 [facility] Comment on above: Performed By: #### L 100.0100, L300.3900, L500.4050 #### [facility] [address] [place], [address] Eosinophil percentageOrdered By: Kayley Melendrez on 02-12-2025 Eosinophils/100 WBC (Bld) 4.7 % 0-5 [facility] Erythrocyte distribution wid th ratioOrdered By: [facility] on 02-12-2025 Erythrocyte distribution width (RBC) [Ratio] 18.3 % High 11.6-14.6 [facility] Erythrocyte distribution wid th standard deviationOrdered By: [facility] Mel[facility] on 02-12-2025 Erythrocyte distribution width (RBC) [Ratio] 59.4 fl High 35.1-43.9 [facility] Glomerular filtration rate ( GFR) estimation/1.73 sq m using serum, plasma, or whole bOrdered By: Kayley Melendrez on 02-12-2025 GFR/1.73 sq M.predicted among non-blacks MDRD (S/P/Bld) [Vol rate/Area] 16 mL/min/{1.73_m2} Low >60 [facility] Comment on above: mL/min/1.73m2 CKD-EP I Creatinine Equation (2020) Hematocrit Auto (Bld) [Volum e fraction]Ordered By: Kayley Melendrez on 02-12-2025 Hematocrit (Bld) [Volume fraction] 24.6 % Low 40-54 [facility] Hemoglobin measurementOrdere d By: Kayley Melendrez on 02-12-2025 Hemoglobin (Bld) [Mass/Vol] 8.0 g/dL Low 13.0-16.5 [facility] Immature granulocytes/100 WB C Auto (Bld)Ordered By: Kayley Melendrez on 02-12-2025 Immature granulocytes/100 WBC (Bld) 0.500 % 0.0-0.9 [facility] Comment on above: IG% - Immature Granu locytes (promyelocytes, myelocytes and metamyelocytes) > 1% indicates that a LEFT SHIFT is Present. International normalized rat io (INR) calculationOrdered By: Kayley Melendrez on 02-12-2025 INR Coag (Bld) [Relative time] 1.5 {INR} [facility] - Chemistry and C hemistry - challengeOrdered By: Kayley Melendrez on 02-12-2025 AST [Catalytic activity/Vol] 34 U/L <38 [facility] MCV (mean corpuscular volume ) determinationOrdered By: Kayley Melendrez on 02-12-2025 MCV (RBC) [Entitic vol] 90.1 fL 80-94 [facility] Mean corpuscular hemoglobin (MCH) determinationOrdered By: Kayley Melendrez on 02-12-2025 MCH (RBC) [Entitic mass] 29.3 pg 27.0-32.0 [facility] Mean corpuscular hemoglobin concentration (MCHC) determinationOrdered By: Kayley Melendrez on 02-12-2025 MCHC (RBC) [Mass/Vol] 32.5 g/dL 32-36 [facility] Mean platelet volume determi nationOrdered By: Kayley Melendrez on 02-12-2025 Platelet mean volume (Bld) [Entitic vol] 9.2 fL 6.2-12.0 [facility] Monocyte percentageOrdered B y: Kayley Melendrez on 02-12-2025 Monocytes/100 WBC (Bld) 11.9 % High 0-10 [facility] Neutrophil percentageOrdered By: Kayley Melendrez on 02-12-2025 Neutrophils/100 WBC (Bld) 64.1 % 47-70 [facility] Nucleated red blood cell per centageOrdered By: Kayley Melendrez on 02-12-2025 Nucleated RBC/100 WBC (Bld) [Ratio] 0 % 0-5 [facility] Platelet countOrdered By: Carmen tangjacob Melendrez on 02-12-2025 Platelets (Bld) [#/Vol] 294 10*3/uL 150-450 [facility] Potassium measurement (mass/ volume)Ordered By: Kayley Melendrez on 02-12-2025 Potassium (Unsp spec) [Mass/Vol] 3.2 mmol/L Low 3.3-5.1 [facility] Prothrombin Time w/INRon INR Coag (PPP) [Relative time] 1.5 {INR} Normal [facility] Comment on above: Performed By: #### L 100.0100, L300.3900, L500.4050 #### [facility] [address] [place], [address] PT Coag (PPP) [Time] 17.9 s High 11.7-14.9 [facility] Comment on above: Performed By: #### L 100.0100, L300.3900, L500.4050 #### [facility] [address] [place], [address] Prothrombin timeOrdered By: Kayley Melendrez on 02-12-2025 PT Coag (PPP) [Time] 17.9 s High 11.7-14.9 [facility] RBC Auto (Bld) [#/Vol]Ordere d By: Kayley Melendrez on 02-12-2025 RBC (Bld) [#/Vol] 2.73 10*6/uL Low 4.6-6.2 [facility] Serum creatinine measurement (mass/volume)Ordered By: Kayley Melendrez on 02-12-2025 Creatinine [Mass/Vol] 4.17 mg/dL High 0.70-1.20 [facility] Serum globulin measurementOr dered By: Kayley Melendrez on 02-12-2025 Globulin (S) [Mass/Vol] 4.2 g/dL 2.2-4.2 [facility] Serum glucose measurement (m ass/volume)Ordered By: Kayley Melendrez on 02-12-2025 Glucose [Mass/Vol] 77 mg/dL 70-99 [facility] Serum or plasma alanine mayorga otransferase (ALT) measurementOrdered By: Kayley Melendrez on 02-12-2025 ALT [Catalytic activity/Vol] 9 U/L <47 [facility] Serum or plasma albumin audrey urement (mass/volume)Ordered By: Kayley Melendrez on 02-12-2025 Albumin [Mass/Vol] 2.9 g/dL Low 3.5-5.0 [facility] Serum or plasma albumin/glob ulin mass ratioOrdered By: Kayley Melendrez on 02-12-2025 Albumin/Globulin [Mass ratio] 0.7 {ratio} Low 0.9-2.4 [facility] Serum or plasma alkaline jacob sphatase measurementOrdered By: Kayley Melendrez on 02-12-2025 ALP [Catalytic activity/Vol] 177 U/L High 40-129 [facility] Serum or plasma calcium audrey urement (mass/volume)Ordered By: Kayley Melendrez on 02-12-2025 Calcium [Mass/Vol] 9.9 mg/dL 7.6-11.0 [facility] Serum or plasma urea nitroge n measurement (mass/volume)Ordered By: Kayley Melendrez on 02-12-2025 Urea nitrogen [Mass/Vol] 43 mg/dL High 4-19 [facility] Sodium levelOrdered By: Omega Melendrez on 02-12-2025 Sodium [Moles/Vol] 131 mmol/L Low 133-145 [facility] Total proteinOrdered By: Lexis Melendrez on 02-12-2025 Protein [Mass/Vol] 7.1 g/dL 5.9-8.4 [facility] White blood cell (WBC) count Ordered By: Kayley Melendrez on 02-12-2025 WBC (Bld) [#/Vol] 7.3 10*3/uL 4.4-11.0 [facility] International normalized rat io (INR) measurement by fingerstickOrdered By: Kayley Melendrez on 02-08-2025 INR Coag (BldC) [Relative time] 2.3 [facility] Comment on above: Critical Value > 4.0 Protime w/INR Fingerstickon 02-08-2025 INR Coag (PPP) [Relative time] 2.3 {INR} Normal [facility] Comment on above: Result Comment: Crit ical Value > 4.0 Performed By: #### L 100.0100, L300.3900, L500.4050 #### [facility] [address] [place], [address] Protime Coagsen 24.9 SEC High 11.7-14.9 [facility] Comment on above: Performed By: #### L 100.0100, L300.3900, L500.4050 #### [facility] [address] [place], [place], [id number] [phone] blood prothrombin time Ordered By: Kayley Melendrez on 02-08-2025 PT Coag (Bld) [Time] 24.9 s High 11.7-14.9 [facility] International normalized rat io (INR) calculationOrdered By: Jayesh Stubbs on 02-07-2025 INR Coag (Bld) [Relative time] 1.8 {INR} [facility] Prothrombin Time w/INRon INR Coag (PPP) [Relative time] 1.8 {INR} Normal [facility] Comment on above: Order Comment: 412.2 Performed By: #### L 100.0100, L300.3900, L500.4050 #### [facility] [address] [place], [address] PT Coag (PPP) [Time] 21.1 s High 11.7-14.9 [facility] Comment on above: Order Comment: 412.2 Performed By: #### L 100.0100, L300.3900, L500.4050 #### [facility] [address] [place], [address] Prothrombin timeOrdered By: Jayesh Stubbs on 02-07-2025 PT Coag (PPP) [Time] 21.1 s High 11.7-14.9 [facility] Absolute lymphocyte countOrd ered By: [facility] on 02-05-2025 Lymphocytes Auto (Unsp spec) [#/Vol] 1.77 10*3/uL 0.83-4.51 [facility] Absolute neutrophil countOrd ered By: Kayley Melendrez on 02-05-2025 Neutrophils (Bld) [#/Vol] 4.6 10*3/uL 2.0-7.7 [facility] Anion gap in Serum or Plasma Ordered By: Kayley Melendrez on 02-05-2025 Anion gap [Moles/Vol] 18 mmol/L High 5-15 [facility] Automated lymphocyte count a s percentage of total leukocytesOrdered By: Kayley Melendrez on 02-05-2025 Lymphocytes/100 WBC Auto (Unsp spec) 22.0 % 19-41 [facility] BUN/creatinine ratioOrdered By: Kayley Melendrez on 02-05-2025 Urea nitrogen/Creatinine [Mass ratio] 4.1 mg/mg Low 10-20 [facility] Basophil percentageOrdered B y: Kayley Melendrez on 02-05-2025 Basophils/100 WBC (Bld) 1.0 % 0-1 [facility] Bilirubin, totalOrdered By: Kayley Melendrez on 02-05-2025 Bilirubin [Mass/Vol] 0.81 mg/dL 0.00-1.30 [facility] CBC W/Diff, Automatedon 01-25 Absolute Lymph 1.77 X10 3/uL Normal 0.83-4.51 [facility] Comment on above: Order Comment: 413.2 Performed By: #### L 958.1757 #### [facility] [address] [place], [address] Absolute Neut 4.6 X10 3/uL Normal 2.0-7.7 [facility] Comment on above: Order Comment: 413.2 Performed By: #### L 300.3900 #### [facility] [address] [place], [address] Basophils/100 WBC (Bld) 1.0 % Normal 0-1 [facility] Comment on above: Order Comment: 413.2 Performed By: #### L 300.3900 #### [facility] [address] [place], [address] Eosinophils/100 WBC (Bld) 4.1 % Normal 0-5 [facility] Comment on above: Order Comment: 413.2 Performed By: #### L 300.3900 #### [facility] [address] [place], [address] Erythrocyte distribution width (RBC) [Ratio] 18.8 % High 11.6-14.6 [facility] Comment on above: Order Comment: 413.2 Performed By: #### L 300.3900 #### [facility] [address] [place], [address] Hematocrit (Bld) [Volume fraction] 28.1 % Low 40-54 [facility] Comment on above: Order Comment: 413.2 Performed By: #### L 300.3900 #### [facility] [address] [place], [address] Hemoglobin (Bld) [Mass/Vol] 8.8 g/dL Low 13.0-16.5 [facility] Comment on above: Order Comment: 413.2 Performed By: #### L 300.3900 #### [facility] [address] [place], [address] IG% 0.600 Normal 0.0-0.9 [facility] Comment on above: Order Comment: 413.2 Result Comment: IG% - Immature Granulocytes (promyelocytes, myelocytes and metamyelocytes) > 1% indicates that a LEFT SHIFT is Present. Performed By: #### L 300.3900 #### [facility] [address] [place], [address] Lymphocytes/100 WBC (Bld) 22.0 % Normal 19-41 [facility] Comment on above: Order Comment: 413.2 Performed By: #### L 300.3900 #### [facility] [address] [place], [address] MCH (RBC) [Entitic mass] 29.0 pg Normal 27.0-32.0 [facility] Comment on above: Order Comment: 413.2 Performed By: #### L 300.3900 #### [facility] [address] [place], [address] MCHC (RBC) [Mass/Vol] 31.3 g/dL Low 32-36 [facility] Comment on above: Order Comment: 413.2 Performed By: #### L 300.3900 #### [facility] [address] [place], [address] MCV (RBC) [Entitic vol] 92.7 fL Normal 80-94 [facility] Comment on above: Order Comment: 413.2 Performed By: #### L 300.3900 #### [facility] [address] [place], [address] Monocytes/100 WBC (Bld) 15.6 % High 0-10 [facility] Comment on above: Order Comment: 413.2 Performed By: #### L 300.3900 #### [facility] [address] [place], [address] Neutrophils/100 WBC (Bld) 56.7 % Normal 47-70 [facility] Comment on above: Order Comment: 413.2 Performed By: #### L 300.3900 #### [facility] [address] [place], [address] Nucleated RBC (Bld) [#/Vol] 0 10*3/uL Normal 0-5 [facility] Comment on above: Order Comment: 413.2 Performed By: #### L 300.3900 #### [facility] [address] [place], [address] Platelet mean volume (Bld) [Entitic vol] 9.2 fL Normal 6.2-12.0 [facility] Comment on above: Order Comment: 413.2 Performed By: #### L 300.3900 #### [facility] [address] [place], [address] Platelets (Bld) [#/Vol] 358 10*3/uL Normal 150-450 [facility] Comment on above: Order Comment: 413.2 Performed By: #### L 300.3900 #### [facility] [address] [place], [address] RBC (Bld) [#/Vol] 3.03 10*6/uL Low 4.6-6.2 [facility] Comment on above: Order Comment: 413.2 Performed By: #### L 300.3900 #### [facility] [address] [place], [address] RDW SD 63.1 fl High 35.1-43.9 [facility] Comment on above: Order Comment: 413.2 Performed By: #### L 300.3900 #### [facility] [address] [place], [address] WBC (Bld) [#/Vol] 8.1 10*3/uL Normal 4.4-11.0 [facility] Comment on above: Order Comment: 413.2 Performed By: #### L 300.3900 #### [facility] [address] [place], [address] Carbon dioxide, total [Moles /volume] in Central venous bloodOrdered By: Kayley Melendrez on 02-05-2025 CO2 [Moles/Vol] 25.9 mmol/L 21.0-32.0 [facility] Chloride assayOrdered By: Carmen Melendrez on 02-05-2025 Chloride [Moles/Vol] 93 mmol/L Low 98-108 [facility] Metabolic Prof ilon 02-05-2025 Albumin [Mass/Vol] 3.1 g/dL Low 3.5-5.0 [facility] Comment on above: Order Comment: 413.2 Performed By: #### L 300.3900 #### [facility] [address] [place], [address] Albumin/Globulin [Mass ratio] 0.7 {ratio} Low 0.9-2.4 [facility] Comment on above: Order Comment: 413.2 Performed By: #### L 300.3900 #### [facility] [address] [place], [address] ALK PHOS 260 U/L High 40-129 [facility] Comment on above: Order Comment: 413.2 Performed By: #### L 300.3900 #### [facility] [address] [place], [address] ALT [Catalytic activity/Vol] 11 U/L Normal <=46 [facility] Comment on above: Order Comment: 413.2 Performed By: #### L 300.3900 #### [facility] [address] [place], [address] AST [Catalytic activity/Vol] 42 U/L High <=37 [facility] Comment on above: Order Comment: 413.2 Performed By: #### L 300.3900 #### [facility] [address] [place], [address] Bilirubin [Mass/Vol] 0.81 mg/dL Normal 0.00-1.30 [facility] Comment on above: Order Comment: 413.2 Performed By: #### L 300.3900 #### [facility] [address] [place], [address] BUN/CRE 4.1 RATIO Low 10-20 [facility] Comment on above: Order Comment: 413.2 Performed By: #### L 300.3900 #### [facility] [address] [place], [address] Calcium [Mass/Vol] 10.0 mg/dL Normal 7.6-11.0 [facility] Comment on above: Order Comment: 413.2 Performed By: #### L 300.3900 #### [facility] [address] [place], [address] Chloride [Moles/Vol] 93 mmol/L Low 98-108 [facility] Comment on above: Order Comment: 413.2 Performed By: #### L 300.3900 #### [facility] [address] [place], [address] CO2 [Moles/Vol] 25.9 mmol/L Normal 21.0-32.0 [facility] Comment on above: Order Comment: 413.2 Performed By: #### L 300.3900 #### [facility] [address] [place], [address] Creatinine [Mass/Vol] 5.27 mg/dL High 0.70-1.20 [facility] Comment on above: Order Comment: 413.2 Performed By: #### L 300.3900 #### [facility] [address] [place], [address] GAP 18 High 5-15 [facility] Comment on above: Order Comment: 413.2 Performed By: #### L 300.3900 #### [facility] [address] [place], [address] GFR/1.73 sq M.predicted among non-blacks MDRD (S/P/Bld) [Vol rate/Area] 12 mL/min/{1.73_m2} Low >60 [facility] Comment on above: Order Comment: 413.2 Result Comment: mL/m in/1.73m2 CKD-EPI Creatinine Equation (2020) Performed By: #### L 300.3900 #### [facility] [address] [place], [address] Globulin (S) [Mass/Vol] 4.3 g/dL High 2.2-4.2 [facility] Comment on above: Order Comment: 413.2 Performed By: #### L 300.3900 #### [facility] [address] [place], [address] Glucose [Mass/Vol] 65 mg/dL Low 70-99 [facility] Comment on above: Order Comment: 413.2 Performed By: #### L 300.3900 #### [facility] [address] [place], [address] Potassium [Moles/Vol] 4.5 mmol/L Normal 3.3-5.1 [facility] Comment on above: Order Comment: 413.2 Performed By: #### L 300.3900 #### [facility] [address] [place], [address] Sodium [Moles/Vol] 136 mmol/L Normal 133-145 [facility] Comment on above: Order Comment: 413.2 Performed By: #### L 300.3900 #### [facility] [address] [place], [address] T PROT 7.4 g/dL Normal 5.9-8.4 [facility] Comment on above: Order Comment: 413.2 Performed By: #### L 300.3900 #### [facility] [address] [place], [address] Urea nitrogen [Mass/Vol] 22 mg/dL High 4-19 [facility] Comment on above: Order Comment: 413.2 Performed By: #### L 300.3900 #### [facility] [address] [place], [address] Eosinophil percentageOrdered By: Kayley Melendrez on 02-05-2025 Eosinophils/100 WBC (Bld) 4.1 % 0-5 [facility] Erythrocyte distribution wid th ratioOrdered By: Kayley Melendrez on 02-05-2025 Erythrocyte distribution width (RBC) [Ratio] 18.8 % High 11.6-14.6 [facility] Erythrocyte distribution wid th standard deviationOrdered By: Kayley Melendrez on 02-05-2025 Erythrocyte distribution width (RBC) [Ratio] 63.1 fl High 35.1-43.9 [facility] Glomerular filtration rate ( GFR) estimation/1.73 sq m using serum, plasma, or whole bOrdered By: Kayley Melendrez on 02-05-2025 GFR/1.73 sq M.predicted among non-blacks MDRD (S/P/Bld) [Vol rate/Area] 12 mL/min/{1.73_m2} Low >60 [facility] Comment on above: mL/min/1.73m2 CKD-EP I Creatinine Equation (2020) Hematocrit Auto (Bld) [Volum e fraction]Ordered By: Kayley Melendrez on 02-05-2025 Hematocrit (Bld) [Volume fraction] 28.1 % Low 40-54 [facility] Hemoglobin measurementOrdere d By: Kayley Melendrez on 02-05-2025 Hemoglobin (Bld) [Mass/Vol] 8.8 g/dL Low 13.0-16.5 [facility] Immature granulocytes/100 WB C Auto (Bld)Ordered By: Kayley Melendrez on 02-05-2025 Immature granulocytes/100 WBC (Bld) 0.600 % 0.0-0.9 [facility] Comment on above: IG% - Immature Granu locytes (promyelocytes, myelocytes and metamyelocytes) > 1% indicates that a LEFT SHIFT is Present. Laboratory - Chemistry and C hemistry - challengeOrdered By: Kayley Melendrez on 02-05-2025 AST [Catalytic activity/Vol] 42 U/L High <38 [facility] MCV (mean corpuscular volume ) determinationOrdered By: Kayley Melendrez on 02-05-2025 MCV (RBC) [Entitic vol] 92.7 fL 80-94 [facility] Mean corpuscular hemoglobin (MCH) determinationOrdered By: Kayley Melendrez on 02-05-2025 MCH (RBC) [Entitic mass] 29.0 pg 27.0-32.0 [facility] Mean corpuscular hemoglobin concentration (MCHC) determinationOrdered By: Kayley Melendrez on 02-05-2025 MCHC (RBC) [Mass/Vol] 31.3 g/dL Low 32-36 [facility] Mean platelet volume determi nationOrdered By: Kayley Melendrez on 02-05-2025 Platelet mean volume (Bld) [Entitic vol] 9.2 fL 6.2-12.0 [facility] Monocyte percentageOrdered B y: Kayley Melendrez on 02-05-2025 Monocytes/100 WBC (Bld) 15.6 % High 0-10 [facility] Neutrophil percentageOrdered By: Kayley Melendrez on 02-05-2025 Neutrophils/100 WBC (Bld) 56.7 % 47-70 [facility] Nucleated red blood cell per centageOrdered By: Kayley Melendrez on 02-05-2025 Nucleated RBC/100 WBC (Bld) [Ratio] 0 % 0-5 [facility] Platelet countOrdered By: Carmen Melendrez on 02-05-2025 Platelets (Bld) [#/Vol] 358 10*3/uL 150-450 [facility] Potassium measurement (mass/ volume)Ordered By: Kayley Melendrez on 02-05-2025 Potassium (Unsp spec) [Mass/Vol] 4.5 mmol/L 3.3-5.1 [facility] RBC Auto (Bld) [#/Vol]Ordere d By: Kayley Melendrez on 02-05-2025 RBC (Bld) [#/Vol] 3.03 10*6/uL Low 4.6-6.2 [facility] [facility] [place] Serum creatinine measurement (mass/volume)Ordered By: Kayley Melendrez on 02-05-2025 Creatinine [Mass/Vol] 5.27 mg/dL High 0.70-1.20 [facility] Serum globulin measurementOr dered By: Kayley Melendrez on 02-05-2025 Globulin (S) [Mass/Vol] 4.3 g/dL High 2.2-4.2 [facility] Serum glucose measurement (m ass/volume)Ordered By: Kayley Melendrez on 02-05-2025 Glucose [Mass/Vol] 65 mg/dL Low 70-99 [facility] Serum or plasma alanine mayorga otransferase (ALT) measurementOrdered By: Kayley Melendrez on 02-05-2025 ALT [Catalytic activity/Vol] 11 U/L <47 [facility] Serum or plasma albumin audrey urement (mass/volume)Ordered By: Kayley Melendrez on 02-05-2025 Albumin [Mass/Vol] 3.1 g/dL Low 3.5-5.0 [facility] Serum or plasma albumin/glob ulin mass ratioOrdered By: Kayley Melendrez on 02-05-2025 Albumin/Globulin [Mass ratio] 0.7 {ratio} Low 0.9-2.4 [facility] Serum or plasma alkaline jacob sphatase measurementOrdered By: Kayley Melendrez on 02-05-2025 ALP [Catalytic activity/Vol] 260 U/L High 40-129 [facility] Serum or plasma calcium audrey urement (mass/volume)Ordered By: Kayley Melendrez on 02-05-2025 Calcium [Mass/Vol] 10.0 mg/dL 7.6-11.0 [facility] Serum or plasma urea nitroge n measurement (mass/volume)Ordered By: Kayley Melendrez on 02-05-2025 Urea nitrogen [Mass/Vol] 22 mg/dL High 4-19 [facility] Sodium levelOrdered By: Omega Melendrez on 05-12-2025 Sodium [Moles/Vol] 136 mmol/L 133-145 [facility] Total proteinOrdered By: Lexis Melendrez on 02-05-2025 Protein [Mass/Vol] 7.4 g/dL 5.9-8.4 [facility] White blood cell (WBC) count Ordered By: Kayley Melendrez on 02-05-2025 WBC (Bld) [#/Vol] 8.1 10*3/uL 4.4-11.0 [facility] CBC panel Auto (Bld)on 02-01 Erythrocyte distribution width (RBC) [Ratio] 18.8 % High 11.5 - 15.0 % [facility] Hematocrit (Bld) [Volume fraction] 28.3 % Low 40.0 - 52.0 % [facility] Hemoglobin (Bld) [Mass/Vol] 8.9 g/dL Low 13.0 - 18.0 g/dL [facility] Interpretation and review of laboratory results Abnormal [facility] MCH (RBC) [Entitic mass] 28.2 pg 26. 0 - 34.0 pg [facility] MCHC (RBC) [Mass/Vol] 31.4 % 30.5 - 36.0 % [facility] MCV (RBC) [Entitic vol] 89.6 fL 77.0 - 99.0 fL [facility] Platelet mean volume (Bld) [Entitic vol] 9 fL 9.0 - 12.7 fL [facility] Platelets (Bld) [#/Vol] 282 10*3/uL 140 - 440 10*3/uL [facility] RBC (Bld) [#/Vol] 3.16 10*6/uL Low 4.40 - 5.9 0 10*6/uL [facility] WBC (Bld) [#/Vol] 7.9 10*3/uL 3.6 - 10.7 10*3/uL [facility] Comprehensive metabolic 1998 panelon 02-01-2025 Albumin [Mass/Vol] 2.1 g/dL Low 3.5 - 5.0 g/dL [facility] ALP [Catalytic activity/Vol] 226 U/L High 40 - 150 U/L [facility] ALT [Catalytic activity/Vol] 10 U/L NINF - 40 U/L [facility] Anion gap [Moles/Vol] 11 mmol/L 3 - 13 mmol/L [facility] AST [Catalytic activity/Vol] 32 U/L NINF - 34 U/L [facility] Bilirubin [Mass/Vol] 0.9 mg/dL NINF - 1.2 mg/dL [facility] Calcium [Mass/Vol] 9.7 mg/dL 8.4 - 10. 2 mg/dL [facility] Chloride [Moles/Vol] 99 mmol/L 98 - 10 7 mmol/L [facility] CO2 [Moles/Vol] 26 mmol/L 22 - 29 mmol/L [facility] Creatinine [Mass/Vol] 2.39 mg/dL High 0.72 - 1.25 mg/dL [facility] GFR/1.73 sq M.predicted (S/P/Bld) [Vol rate/Area] 30.5 mL/min Low - PINF [facility] Glucose [Mass/Vol] 87 mg/dL 74 - 100 mg/dL [facility] Interpretation and review of laboratory results Abnormal [facility] Potassium [Moles/Vol] 3.7 mmol/L 3.5 - 5.1 mmol/L [facility] Protein [Mass/Vol] 7.4 g/dL 6.4 - 8.3 g/dL [facility] Sodium [Moles/Vol] 136 mmol/L 136 - 145 mmol/L [facility] Urea nitrogen [Mass/Vol] 7 mg/dL Low 9 - 23 mg/d L [facility] Hemoglobin (Bld) [Mass/Vol]O rdered By: Rosa Juares on 02-01-2025 Hematocrit (Bld) [Volume fraction] 28.8 % Low 40.0 - 52.0 % [facility] Interpretation and review of laboratory results Abnormal [facility] Laboratory - Chemistry and C hemistry - challengeon 02-01-2025 Magnesium [Mass/Vol] 1.9 mg/dL 1.6 - 2 .6 mg/dL [facility] Laboratory - Coagulationon 0 02-01-2025 PT Coag (Bld) [Time] 20.3 s High 9.0 - 12.0 s [facility] Laboratory - Hematology and Cell countsOrdered By: Rosa Juares on 02-01-2025 Hemoglobin (Bld) [Mass/Vol] 8.9 g/dL Low 13.0 - 18.0 g/dL [facility] Magnesium [Mass/Vol]on 02-01 [facility] No Panel Informationon 02-01 Interpretation and review of laboratory results Normal [facility] PT Coag (Bld) [Time]on 02-01 INR Coag (PPP) [Relative time] 2 {INR} High 0.9 - 1.1 [facility] Interpretation and review of laboratory results Abnormal [facility] Phosphate [Moles/Vol]on Phosphate [Mass/Vol] 3.4 mg/dL 2.3 - 4 .7 mg/dL [facility] CBC panel Auto (Bld)on 01-31 Erythrocyte distribution width (RBC) [Ratio] 19.2 % High 11.5 - 15.0 % [facility] Hematocrit (Bld) [Volume fraction] 27.9 % Low 40.0 - 52.0 % [facility] Hemoglobin (Bld) [Mass/Vol] 8.8 g/dL Low 13.0 - 18.0 g/dL [facility] Interpretation and review of laboratory results Abnormal [facility] MCH (RBC) [Entitic mass] 28.4 pg 26. 0 - 34.0 pg [facility] MCHC (RBC) [Mass/Vol] 31.5 % 30.5 - 36.0 % [facility] MCV (RBC) [Entitic vol] 90 fL 77.0 - 99.0 fL [facility] Platelet mean volume (Bld) [Entitic vol] 9 fL 9.0 - 12.7 fL [facility] Platelets (Bld) [#/Vol] 278 10*3/uL 140 - 440 10*3/uL [facility] RBC (Bld) [#/Vol] 3.1 10*6/uL Low 4.40 - 5.9 0 10*6/uL [facility] WBC (Bld) [#/Vol] 9.3 10*3/uL 3.6 - 10.7 10*3/uL [facility] Comprehensive metabolic 1998 panelon 01-31-2025 Albumin [Mass/Vol] 2.1 g/dL Low 3.5 - 5.0 g/dL [facility] ALP [Catalytic activity/Vol] 218 U/L High 40 - 150 U/L [facility] ALT [Catalytic activity/Vol] 11 U/L [facility]/L [facility] Anion gap [Moles/Vol] 12 mmol/L 3 - 13 mmol/L [facility] AST [Catalytic activity/Vol] 31 U/L [facility] 34 U/L [facility] Bilirubin [Mass/Vol] 0.8 mg/dL NINF - 1.2 mg/dL [facility] Calcium [Mass/Vol] 10 mg/dL 8.4 - 10. 2 mg/dL [facility] Chloride [Moles/Vol] 99 mmol/L 98 - 10 7 mmol/L [facility] CO2 [Moles/Vol] 27 mmol/L 22 - 29 mmol/L [facility] Creatinine [Mass/Vol] 3.64 mg/dL High 0.72 - 1.25 mg/dL [facility] GFR/1.73 sq M.predicted (S/P/Bld) [Vol rate/Area] 18.4 mL/min Low - PINF [facility] Glucose [Mass/Vol] 87 mg/dL 74 - 100 mg/dL [facility] Interpretation and review of laboratory results Abnormal [facility] Potassium [Moles/Vol] 4.3 mmol/L 3.5 - 5.1 mmol/L [facility] Protein [Mass/Vol] 7.3 g/dL 6.4 - 8.3 g/dL [facility] Sodium [Moles/Vol] 138 mmol/L 136 - 145 mmol/L [facility] Urea nitrogen [Mass/Vol] 15 mg/dL 9 - 23 mg/d L [facility] Hemoglobin (Bld) [Mass/Vol]o n 01-31-2025 Hematocrit (Bld) [Volume fraction] 28.8 % Low 40.0 - 52.0 % [facility] Interpretation and review of laboratory results Abnormal [facility] Laboratory - Chemistry and C hemistry - challengeon 01-31-2025 Magnesium [Mass/Vol] 2 mg/dL 1.6 - 2 .6 mg/dL [facility] Laboratory - Coagulationon 0 01-31-2025 PT Coag (Bld) [Time] 22.4 s High 9.0 - 12.0 s [facility] Laboratory - Hematology and Cell countson 01-31-2025 Hemoglobin (Bld) [Mass/Vol] 9.2 g/dL Low 13.0 - 18.0 g/dL [facility] Magnesium [Mass/Vol]on 01-31 [facility] No Panel Informationon 01-31 Interpretation and review of laboratory results Normal [facility] PT Coag (Bld) [Time]on 01-31 INR Coag (PPP) [Relative time] 2.2 {INR} High 0.9 - 1.1 [facility] Interpretation and review of laboratory results Abnormal [facility] Phosphate [Moles/Vol]on Phosphate [Mass/Vol] 4.6 mg/dL 2.3 - 4 .7 mg/dL [facility] Basic metabolic 1998 panelon 01-30-2025 Anion gap [Moles/Vol] 13 mmol/L 3 - 13 mmol/L [facility] Calcium [Mass/Vol] 9.6 mg/dL 8.4 - 10. 2 mg/dL [facility] Chloride [Moles/Vol] 99 mmol/L 98 - 10 7 mmol/L [facility] CO2 [Moles/Vol] 23 mmol/L 22 - 29 mmol/L [facility] Creatinine [Mass/Vol] 2.56 mg/dL High 0.72 - 1.25 mg/dL [facility] GFR/1.73 sq M.predicted (S/P/Bld) [Vol rate/Area] 28.1 mL/min Low - PINF [facility] Glucose [Mass/Vol] 88 mg/dL 74 - 100 mg/dL [facility] Interpretation and review of laboratory results Abnormal [facility] Potassium [Moles/Vol] 3.7 mmol/L 3.5 - 5.1 mmol/L [facility] Sodium [Moles/Vol] 135 mmol/L Low 136 - 145 mmol/L [facility] Urea nitrogen [Mass/Vol] 10 mg/dL 9 - 23 mg/d L [facility] CBC panel Auto (Bld)on 01-30 Erythrocyte distribution width (RBC) [Ratio] 18.9 % High 11.5 - 15.0 % [facility] Hematocrit (Bld) [Volume fraction] 28.1 % Low 40.0 - 52.0 % [facility] Hemoglobin (Bld) [Mass/Vol] 8.7 g/dL Low 13.0 - 18.0 g/dL [facility] Interpretation and review of laboratory results Abnormal [facility] MCH (RBC) [Entitic mass] 27.6 pg 26. 0 - 34.0 pg [facility] MCHC (RBC) [Mass/Vol] 31 % 30.5 - 36.0 % [facility] MCV (RBC) [Entitic vol] 89.2 fL 77.0 - 99.0 fL [facility] Platelet mean volume (Bld) [Entitic vol] 9.1 fL 9.0 - 12.7 fL [facility] Platelets (Bld) [#/Vol] 276 10*3/uL 140 - 440 10*3/uL [facility] RBC (Bld) [#/Vol] 3.15 10*6/uL Low 4.40 - 5.9 0 10*6/uL [facility] WBC (Bld) [#/Vol] 8.8 10*3/uL 3.6 - 10.7 10*3/uL [facility] Hemoglobin (Bld) [Mass/Vol]O rdered By: Rikki Caballero on 01-30-2025 Hematocrit (Bld) [Volume fraction] 31.5 % Low 40.0 - 52.0 % [facility] Interpretation and review of laboratory results Abnormal [facility] Laboratory - Chemistry and C hemistry - challengeon 01-30-2025 Glucose [Mass/Vol] 106 mg/dL High 70 - 100 mg/dL [facility] Glucose [Mass/Vol] 107 mg/dL High 70 - 100 mg/dL [facility] Glucose [Mass/Vol] 77 mg/dL 70 - 100 mg/dL [facility] Magnesium [Mass/Vol] 1.9 mg/dL 1.6 - 2 .6 mg/dL [facility] Laboratory - Coagulationon 0 01-30-2025 PT Coag (Bld) [Time] 24.9 s High 9.0 - 12.0 s [facility] Laboratory - Hematology and Cell countsOrdered By: Rikki Caballero on 01-30-2025 Hemoglobin (Bld) [Mass/Vol] 9.8 g/dL Low 13.0 - 18.0 g/dL [facility] Magnesium [Mass/Vol]on 01-30 Interpretation and review of laboratory results Normal [facility] No Panel Informationon 01-30 Interpretation and review of laboratory results Abnormal [facility] Radiology Study observation (narrative) [employer] Interpretation and review of laboratory results Abnormal [facility] Interpretation and review of laboratory results Normal [facility] Blood Expiration Date [id number] S [facility] Crossmatch interpretation COMP [facility] Dispense Status Released from [facility] Product Blood Type 9500 [facility] PRODUCT CODE [id number] [facility] ABO O [facility] Unit Number [id number] [facility]th Unit RH Negative [facility] Unit Volume 300 mL [facility] No Panel InformationOrdered By: Jun Borrero on 01-30-2025 [facility] Work Phone: PT Coag (Bld) [Time]on 01-30 INR Coag (PPP) [Relative time] 2.5 {INR} High 0.9 - 1.1 [facility] Interpretation and review of laboratory results Abnormal [facility] Phosphate [Moles/Vol]on Interpretation and review of laboratory results Normal [facility] Phosphate [Mass/Vol] 3.7 mg/dL 2.3 - 4 .7 mg/dL [facility] Basic metabolic 1998 panelon 01-29-2025 Anion gap [Moles/Vol] 17 mmol/L High 3 - 13 mmol/L [facility] Calcium [Mass/Vol] 9.8 mg/dL 8.4 - 10. 2 mg/dL [facility] Chloride [Moles/Vol] 94 mmol/L Low 98 - 10 7 mmol/L [facility] CO2 [Moles/Vol] 23 mmol/L 22 - 29 mmol/L [facility] Creatinine [Mass/Vol] 4.17 mg/dL High 0.72 - 1.25 mg/dL [facility] GFR/1.73 sq M.predicted (S/P/Bld) [Vol rate/Area] 15.6 mL/min Low - PINF [facility] Glucose [Mass/Vol] 80 mg/dL 74 - 100 mg/dL [facility] Potassium [Moles/Vol] 3.7 mmol/L 3.5 - 5.1 mmol/L [facility] Sodium [Moles/Vol] 134 mmol/L Low 136 - 145 mmol/L [facility] Urea nitrogen [Mass/Vol] 21 mg/dL 9 - 23 mg/d L [facility] CBC panel Auto (Bld)on 01-29 Erythrocyte distribution width (RBC) [Ratio] 19 % High 11.5 - 15.0 % [facility] Hematocrit (Bld) [Volume fraction] 27.3 % Low 40.0 - 52.0 % [facility] Hemoglobin (Bld) [Mass/Vol] 8.6 g/dL Low 13.0 - 18.0 g/dL [facility] Interpretation and review of laboratory results Abnormal [facility] MCH (RBC) [Entitic mass] 28.1 pg 26. 0 - 34.0 pg [facility] MCHC (RBC) [Mass/Vol] 31.5 % 30.5 - 36.0 % [facility] MCV (RBC) [Entitic vol] 89.2 fL 77.0 - 99.0 fL [facility] Platelet mean volume (Bld) [Entitic vol] 9.4 fL 9.0 - 12.7 fL [facility] Platelets (Bld) [#/Vol] 271 10*3/uL 140 - 440 10*3/uL [facility] RBC (Bld) [#/Vol] 3.06 10*6/uL Low 4.40 - 5.9 0 10*6/uL [facility] WBC (Bld) [#/Vol] 9.4 10*3/uL 3.6 - 10.7 10*3/uL [facility] Laboratory - Chemistry and C hemistry - challengeon 01-29-2025 Glucose [Mass/Vol] 82 mg/dL 70 - 100 mg/dL [facility] Glucose [Mass/Vol] 87 mg/dL 70 - 100 mg/dL [facility] Glucose [Mass/Vol] 91 mg/dL 70 - 100 mg/dL [facility] Magnesium [Mass/Vol] 2 mg/dL 1.6 - 2 .6 mg/dL [facility] Laboratory - Coagulationon 0 01-29-2025 Coagulation factor VIII activity actual/normal Coag (PPP) [Relative time] 412 % High 56 - 191 % [facility] vWf Ag actual/normal IA (PPP) [Relative mass conc] 281 % High 52 - 214 % [facility] vWf multimers Ql (PPP) See Note [facility] vWf ristocetin cofactor act actual/normal Platelet aggregation (PPP) [Relative time] 200 % 51 - 215 % [facility] th PT Coag (Bld) [Time] 24 s High 9.0 - 12.0 s [facility] Magnesium [Mass/Vol]on 01-29 Interpretation and review of laboratory results Normal [facility] No Panel Informationon 01-29 Interpretation and review of laboratory results Normal [facility] Interpretation and review of laboratory results Normal [facility] Interpretation and review of laboratory results Abnormal [facility] Interpretation and review of laboratory results Normal [facility] Interpretation and review of laboratory results Abnormal [facility] Interpretation and review of laboratory results Abnormal [facility] PT Coag (Bld) [Time]on 01-29 INR Coag (PPP) [Relative time] 2.4 {INR} High 0.9 - 1.1 [facility] Phosphate [Moles/Vol]on Phosphate [Mass/Vol] 4.9 mg/dL High 2.3 - 4 .7 mg/dL [facility] aPTT Coag (Bld) [Time]on aPTT Coag (PPP) [Time] 51.4 s High 20.0 - 30.5 s [facility] Basic metabolic 1998 panelon 01-28-2025 Anion gap [Moles/Vol] 13 mmol/L 3 - 13 mmol/L [facility] Calcium [Mass/Vol] 10 mg/dL 8.4 - 10. 2 mg/dL [facility] Chloride [Moles/Vol] 98 mmol/L 98 - 10 7 mmol/L [facility] CO2 [Moles/Vol] 26 mmol/L 22 - 29 mmol/L [facility] Creatinine [Mass/Vol] 3.37 mg/dL High 0.72 - 1.25 mg/dL [facility] GFR/1.73 sq M.predicted (S/P/Bld) [Vol rate/Area] 20.2 mL/min Low - PINF [facility] Glucose [Mass/Vol] 82 mg/dL 74 - 100 mg/dL [facility] Interpretation and review of laboratory results Abnormal [facility] Potassium [Moles/Vol] 3.6 mmol/L 3.5 - 5.1 mmol/L [facility] Sodium [Moles/Vol] 137 mmol/L 136 - 145 mmol/L [facility] Urea nitrogen [Mass/Vol] 14 mg/dL 9 - 23 mg/d L [facility] CBC panel Auto (Bld)on 01-28 Erythrocyte distribution width (RBC) [Ratio] 19 % High 11.5 - 15.0 % [facility] Hematocrit (Bld) [Volume fraction] 26.3 % Low 40.0 - 52.0 % [facility] Hemoglobin (Bld) [Mass/Vol] 8.5 g/dL Low 13.0 - 18.0 g/dL [facility] Interpretation and review of laboratory results Abnormal [facility] MCH (RBC) [Entitic mass] 28.2 pg 26. 0 - 34.0 pg [facility] MCHC (RBC) [Mass/Vol] 32.3 % 30.5 - 36.0 % [facility] MCV (RBC) [Entitic vol] 87.4 fL 77.0 - 99.0 fL [facility] Platelet mean volume (Bld) [Entitic vol] 9.3 fL 9.0 - 12.7 fL [facility] Platelets (Bld) [#/Vol] 240 10*3/uL 140 - 440 10*3/uL [facility] RBC (Bld) [#/Vol] 3.01 10*6/uL Low 4.40 - 5.9 0 10*6/uL [facility] WBC (Bld) [#/Vol] 9.8 10*3/uL 3.6 - 10.7 10*3/uL [facility] Laboratory - Chemistry and C hemistry - challengeon 01-28-2025 Glucose [Mass/Vol] 127 mg/dL High 70 - 100 mg/dL [facility] Magnesium [Mass/Vol] 2 mg/dL 1.6 - 2 .6 mg/dL [facility] Laboratory - Coagulationon 0 01-28-2025 PT Coag (Bld) [Time] 21.9 s High 9.0 - 12.0 s [facility] Magnesium [Mass/Vol]on 01-28 Interpretation and review of laboratory results Normal [facility] No Panel Informationon 01-28 Interpretation and review of laboratory results Abnormal [facility] Interpretation and review of laboratory results Abnormal [facility] PT Coag (Bld) [Time]on 01-28 INR Coag (PPP) [Relative time] 2.2 {INR} High 0.9 - 1.1 [facility] Phosphate [Moles/Vol]on Interpretation and review of laboratory results Abnormal [facility] Phosphate [Mass/Vol] 4.9 mg/dL High 2.3 - 4 .7 mg/dL [facility] aPTT Coag (Bld) [Time]on aPTT Coag (PPP) [Time] 49 s High 20.0 - 30.5 s [facility] Interpretation and review of laboratory results Abnormal [facility] aPTT Coag (PPP) [Time] 46.3 s High 20.0 - 30.5 s [facility] Basic metabolic 1998 panelon 01-27-2025 Anion gap [Moles/Vol] 17 mmol/L High 3 - 13 mmol/L [facility] Calcium [Mass/Vol] 9.9 mg/dL 8.4 - 10. 2 mg/dL [facility] Chloride [Moles/Vol] 99 mmol/L 98 - 10 7 mmol/L [facility] CO2 [Moles/Vol] 23 mmol/L 22 - 29 mmol/L [facility] Creatinine [Mass/Vol] 2.27 mg/dL High 0.72 - 1.25 mg/dL [facility] GFR/1.73 sq M.predicted (S/P/Bld) [Vol rate/Area] 32.4 mL/min Low - PINF [facility] Glucose [Mass/Vol] 115 mg/dL High 74 - 100 mg/dL [facility] Interpretation and review of laboratory results Abnormal [facility] Potassium [Moles/Vol] 3.9 mmol/L 3.5 - 5.1 mmol/L [facility] Sodium [Moles/Vol] 139 mmol/L 136 - 145 mmol/L [facility] Urea nitrogen [Mass/Vol] 9 mg/dL 9 - 23 mg/d L [facility] CBC panel Auto (Bld)on 01-27 Erythrocyte distribution width (RBC) [Ratio] 19.1 % High 11.5 - 15.0 % [facility] Hematocrit (Bld) [Volume fraction] 28.3 % Low 40.0 - 52.0 % [facility] Hemoglobin (Bld) [Mass/Vol] 9 g/dL Low 13.0 - 18.0 g/dL [facility] Interpretation and review of laboratory results Abnormal [facility] MCH (RBC) [Entitic mass] 27.6 pg 26. 0 - 34.0 pg [facility] MCHC (RBC) [Mass/Vol] 31.8 % 30.5 - 36.0 % [facility] MCV (RBC) [Entitic vol] 86.8 fL 77.0 - 99.0 fL [facility] Platelet mean volume (Bld) [Entitic vol] 8.7 fL Low 9.0 - 12.7 fL [facility] Platelets (Bld) [#/Vol] 273 10*3/uL 140 - 440 10*3/uL [facility] RBC (Bld) [#/Vol] 3.26 10*6/uL Low 4.40 - 5.9 0 10*6/uL [facility] WBC (Bld) [#/Vol] 10 10*3/uL 3.6 - 10.7 10*3/uL [facility] Hemoglobin (Bld) [Mass/Vol]o n 01-27-2025 Hematocrit (Bld) [Volume fraction] 26.3 % Low 40.0 - 52.0 % [facility] Interpretation and review of laboratory results Abnormal [facility] Laboratory - Chemistry and C hemistry - challengeon 01-27-2025 Glucose [Mass/Vol] 102 mg/dL High 70 - 100 mg/dL [facility] Glucose [Mass/Vol] 127 mg/dL High 70 - 100 mg/dL [facility] Glucose [Mass/Vol] 87 mg/dL 70 - 100 mg/dL [facility] Magnesium [Mass/Vol] 1.9 mg/dL 1.6 - 2 .6 mg/dL [facility] Laboratory - Coagulationon 0 01-27-2025 PT Coag (Bld) [Time] 19.9 s High 9.0 - 12.0 s [facility] Laboratory - Hematology and Cell countson 01-27-2025 Hemoglobin (Bld) [Mass/Vol] 8.4 g/dL Low 13.0 - 18.0 g/dL [facility] Magnesium [Mass/Vol]on 01-27 [facility] No Panel Informationon 01-27 Interpretation and review of laboratory results Abnormal [facility] Interpretation and review of laboratory results Abnormal [facility] Interpretation and review of laboratory results Normal [facility] Interpretation and review of laboratory results Abnormal [facility] Interpretation and review of laboratory results Normal [facility] PT Coag (Bld) [Time]on 01-27 INR Coag (PPP) [Relative time] 1.9 {INR} High 0.9 - 1.1 [facility] Phosphate [Moles/Vol]on Phosphate [Mass/Vol] 3.4 mg/dL 2.3 - 4 .7 mg/dL [facility] aPTT Coag (Bld) [Time]on aPTT Coag (PPP) [Time] 47.9 s High 20.0 - 30.5 s [facility] Interpretation and review of laboratory results Abnormal [facility] aPTT Coag (PPP) [Time] 49.6 s High 20.0 - 30.5 s [facility] Interpretation and review of laboratory results Abnormal [facility] aPTT Coag (PPP) [Time] 45 s High 20.0 - 30.5 s [facility] Interpretation and review of laboratory results Abnormal [facility] aPTT Coag (PPP) [Time] 40.2 s High 20.0 - 30.5 s [facility] Basic metabolic 1998 panelon 01-26-2025 Anion gap [Moles/Vol] 16 mmol/L High 3 - 13 mmol/L [facility] Calcium [Mass/Vol] 9 mg/dL 8.4 - 10. 2 mg/dL [facility] Chloride [Moles/Vol] 100 mmol/L 98 - 10 7 mmol/L [facility] CO2 [Moles/Vol] 20 mmol/L Low 22 - 29 mmol/L [facility] Creatinine [Mass/Vol] 3.37 mg/dL High 0.72 - 1.25 mg/dL [facility] GFR/1.73 sq M.predicted (S/P/Bld) [Vol rate/Area] 20.2 mL/min Low - PINF [facility] Glucose [Mass/Vol] 75 mg/dL 74 - 100 mg/dL [facility] Interpretation and review of laboratory results Abnormal [facility] Potassium [Moles/Vol] 5.1 mmol/L 3.5 - 5.1 mmol/L [facility] Sodium [Moles/Vol] 136 mmol/L 136 - 145 mmol/L [facility] Urea nitrogen [Mass/Vol] 19 mg/dL 9 - 23 mg/d L [facility] CBC panel Auto (Bld)Ordered By: Brandy Ross on 01-26-2025 Erythrocyte distribution width (RBC) [Ratio] 19.3 % High 11.5 - 15.0 % [facility] Hematocrit (Bld) [Volume fraction] 21 % Low 40.0 - 52.0 % [facility] Hemoglobin (Bld) [Mass/Vol] 6.7 g/dL Critically low 13.0 - 18.0 g/dL [facility] Interpretation and review of laboratory results Abnormal [facility] MCH (RBC) [Entitic mass] 27.8 pg 26. 0 - 34.0 pg [facility] MCHC (RBC) [Mass/Vol] 31.9 % 30.5 - 36.0 % [facility] MCV (RBC) [Entitic vol] 87.1 fL 77.0 - 99.0 fL [facility] Platelet mean volume (Bld) [Entitic vol] 10 fL 9.0 - 12.7 fL [facility] Platelets (Bld) [#/Vol] 265 10*3/uL 140 - 440 10*3/uL [facility] RBC (Bld) [#/Vol] 2.41 10*6/uL Low 4.40 - 5.9 0 10*6/uL [facility] WBC (Bld) [#/Vol] 8.7 10*3/uL 3.6 - 10.7 10*3/uL [facility] HBV surface Ab IA Qnon 01-26 [facility] HBV surface Ag IA Qlon 01-26 Interpretation and review of laboratory results Normal [facility] Hemoglobin (Bld) [Mass/Vol]o n 01-26-2025 Hematocrit (Bld) [Volume fraction] 27.9 % Low 40.0 - 52.0 % [facility] Interpretation and review of laboratory results Abnormal [facility] Hematocrit (Bld) [Volume fraction] 28.4 % Low 40.0 - 52.0 % [facility] Interpretation and review of laboratory results Abnormal [facility] Laboratory - Chemistry and C hemistry - challengeon 01-26-2025 Magnesium [Mass/Vol] 2 mg/dL 1.6 - 2 .6 mg/dL [facility] Laboratory - Coagulationon 0 01-26-2025 PT Coag (Bld) [Time] 18.3 s High 9.0 - 12.0 s [facility] Laboratory - Hematology and Cell countson 01-26-2025 Hemoglobin (Bld) [Mass/Vol] 9 g/dL Low 13.0 - 18.0 g/dL [facility] Hemoglobin (Bld) [Mass/Vol] 8.9 g/dL Low 13.0 - 18.0 g/dL [facility] Laboratory - Microbiology an d Antimicrobial susceptibilityon 01-26-2025 HBV surface Ab IA Qn mIU/mL [facility] HBV surface Ag IA Ql Not detected Not Detected [facility] Magnesium [Mass/Vol]on 01-26 Interpretation and review of laboratory results Normal [facility] No Panel Informationon 01-26 [facility] Blood Expiration Date [id number] S [facility] Crossmatch interpretation COMP [facility] Dispense Status Transfused [facility] Product Blood Type 9500 [facility] PRODUCT CODE [id number] [facility] Unit ABO O [facility] Unit Number [id number] [facility] RH Negative [facility] Unit Volume 300 mL [facility] Interpretation and review of laboratory results Abnormal [facility] PT Coag (Bld) [Time]on 01-26 INR Coag (PPP) [Relative time] 1.8 {INR} High 0.9 - 1.1 [facility] Phosphate [Moles/Vol]on Interpretation and review of laboratory results Abnormal [facility] Phosphate [Mass/Vol] 5.3 mg/dL High 2.3 - 4 .7 mg/dL [facility] aPTT Coag (Bld) [Time]on aPTT Coag (PPP) [Time] 41.6 s High 20.0 - 30.5 s [facility] Interpretation and review of laboratory results Abnormal [facility] aPTT Coag (PPP) [Time] 47 s High 20.0 - 30.5 s [facility] aPTT Coag (Bld) [Time]Ordere d By: Alan Santos on 01-26-2025 aPTT Coag (PPP) [Time] s Critically high 20.0 - 3 0.5 s [facility] Interpretation and review of laboratory results Abnormal [facility] Basic metabolic 1998 panelon 01-25-2025 Anion gap [Moles/Vol] 16 mmol/L High 3 - 13 mmol/L [facility] Calcium [Mass/Vol] 10.1 mg/dL 8.4 - 10. 2 mg/dL [facility] Chloride [Moles/Vol] 98 mmol/L 98 - 10 7 mmol/L [facility] CO2 [Moles/Vol] 24 mmol/L 22 - 29 mmol/L [facility] Creatinine [Mass/Vol] 2.54 mg/dL High 0.72 - 1.25 mg/dL [facility] GFR/1.73 sq M.predicted (S/P/Bld) [Vol rate/Area] 28.3 mL/min Low - PINF [facility] Glucose [Mass/Vol] 74 mg/dL 74 - 100 mg/dL [facility] Interpretation and review of laboratory results Abnormal [facility] Potassium [Moles/Vol] 3.9 mmol/L 3.5 - 5.1 mmol/L [facility] Sodium [Moles/Vol] 138 mmol/L 136 - 145 mmol/L [facility] Urea nitrogen [Mass/Vol] 15 mg/dL 9 - 23 mg/d L [facility] Blood type and Crossmatch greg freida (Bld)on 01-25-2025 ABO group Nom (Bld) O [facility] Blood group antibody screen GEL Ql Negative [facility] D Ag Ql (RBC) Negative [facility] CBC panel Auto (Bld)on 01-25 Erythrocyte distribution width (RBC) [Ratio] 19.2 % High 11.5 - 15.0 % [facility] Hematocrit (Bld) [Volume fraction] 22.5 % Low 40.0 - 52.0 % [facility] Hemoglobin (Bld) [Mass/Vol] 7 g/dL Low 13.0 - 18.0 g/dL [facility] Interpretation and review of laboratory results Abnormal [facility] MCH (RBC) [Entitic mass] 27.6 pg 26. 0 - 34.0 pg [facility] MCHC (RBC) [Mass/Vol] 31.1 % 30.5 - 36.0 % [facility] MCV (RBC) [Entitic vol] 88.6 fL 77.0 - 99.0 fL [facility] Platelet mean volume (Bld) [Entitic vol] 8.8 fL Low 9.0 - 12.7 fL [facility] Platelets (Bld) [#/Vol] 285 10*3/uL 140 - 440 10*3/uL [facility] RBC (Bld) [#/Vol] 2.54 10*6/uL Low 4.40 - 5.9 0 10*6/uL [facility] WBC (Bld) [#/Vol] 10.2 10*3/uL 3.6 - 10.7 10*3/uL [facility] Hemoglobin (Bld) [Mass/Vol]o n 01-25-2025 Hematocrit (Bld) [Volume fraction] 23.8 % Low 40.0 - 52.0 % [facility] Interpretation and review of laboratory results Abnormal [facility] Hematocrit (Bld) [Volume fraction] 24.4 % Low 40.0 - 52.0 % [facility] Interpretation and review of laboratory results Abnormal [facility] Hematocrit (Bld) [Volume fraction] 24.6 % Low 40.0 - 52.0 % [facility] Interpretation and review of laboratory results Abnormal [facility] Hematocrit (Bld) [Volume fraction] 20.4 % Low 40.0 - 52.0 % [facility] Interpretation and review of laboratory results Abnormal [facility] Laboratory - Chemistry and C hemistry - challengeon 01-25-2025 Magnesium [Mass/Vol] 2.1 mg/dL 1.6 - 2 .6 mg/dL [facility] Laboratory - Coagulationon 0 01-25-2025 PT Coag (Bld) [Time] 17.4 s High 9.0 - 12.0 s [facility] PT Coag (Bld) [Time] 15.9 s High 9.0 - 12.0 s [facility] Laboratory - Hematology and Cell countson 01-25-2025 Hemoglobin (Bld) [Mass/Vol] 7.6 g/dL Low 13.0 - 18.0 g/dL [facility] Hemoglobin (Bld) [Mass/Vol] 7.7 g/dL Low 13.0 - 18.0 g/dL [facility] Hemoglobin (Bld) [Mass/Vol] 8 g/dL Low 13.0 - 18.0 g/dL [facility] Hemoglobin (Bld) [Mass/Vol] 6.3 g/dL Critically low 13.0 - 18.0 g/dL [facility] Laboratory - Microbiology an d Antimicrobial susceptibilityon 01-25-2025 A. baumannii DNA EMMANUEL+probe Ql (Unsp spec) Not detected Not Detected [facility] Laboratory - Microbiology an d Antimicrobial susceptibilityOrdered By: Petra Harris on 01-25-2025 C. auris ITS2 gene EMMANUEL+probe Ql (Unsp spec) Not detected Not Detected [facility] Magnesium [Mass/Vol]on 01-25 [facility] No Panel Informationon 01-25 Interpretation and review of laboratory results Normal [facility] Blood Expiration Date [id number] S [facility] Crossmatch interpretation COMP [facility] Dispense Status Transfused [facility] Product Blood Type 9500 [facility] PRODUCT CODE [id number] [facility] ABO O [facility] Unit Number [id number] [facility] RH Negative [facility] Unit Volume 300 mL [facility] Interpretation and review of laboratory results Normal [facility] No Panel InformationOrdered By: Petra Harris on 01-25-2025 Interpretation and review of laboratory results Normal [facility] PT Coag (Bld) [Time]on 01-25 INR Coag (PPP) [Relative time] 1.7 {INR} High 0.9 - 1.1 [facility] Interpretation and review of laboratory results Abnormal [facility] INR Coag (PPP) [Relative time] 1.5 {INR} High 0.9 - 1.1 [facility] Interpretation and review of laboratory results Abnormal [facility] Phosphate [Moles/Vol]on Phosphate [Mass/Vol] 3.9 mg/dL 2.3 - 4 .7 mg/dL [facility] RF videography Hypopharynx a nd Esophagus Views for swallowing function W speech and W barium contrast Juan Carlos 01-25-2025 [facility] Radiology Study observation (narrative) [facility] RF videography Hypopharynx a nd Esophagus Views for swallowing function W speech and W barium contrast POOrdered By: Sulaiman Harp on 01-25-2025 [facility] Work Phone: aPTT Coag (Bld) [Time]on aPTT Coag (PPP) [Time] s Critically high 20.0 - 3 0.5 s [facility] Interpretation and review of laboratory results Abnormal [facility] aPTT Coag (PPP) [Time] 83.1 s High 20.0 - 30.5 s [facility] Interpretation and review of laboratory results Abnormal [facility] aPTT Coag (PPP) [Time] 47.3 s High 20.0 - 30.5 s [facility] Interpretation and review of laboratory results Abnormal [facility] Basic metabolic 1998 panelon 01-24-2025 Anion gap [Moles/Vol] 12 mmol/L 3 - 13 mmol/L [facility] Calcium [Mass/Vol] 9.3 mg/dL 8.4 - 10. 2 mg/dL [facility] Chloride [Moles/Vol] 100 mmol/L 98 - 10 7 mmol/L [facility] CO2 [Moles/Vol] 26 mmol/L 22 - 29 mmol/L [facility] Creatinine [Mass/Vol] 1.47 mg/dL High 0.72 - 1.25 mg/dL [facility] GFR/1.73 sq M.predicted (S/P/Bld) [Vol rate/Area] 54.6 mL/min Low - PINF [facility] Glucose [Mass/Vol] 77 mg/dL 74 - 100 mg/dL [facility] Interpretation and review of laboratory results Abnormal [facility] Potassium [Moles/Vol] 3.5 mmol/L 3.5 - 5.1 mmol/L [facility] Sodium [Moles/Vol] 138 mmol/L 136 - 145 mmol/L [facility] Urea nitrogen [Mass/Vol] 9 mg/dL 9 - 23 mg/d L [facility] Anion gap [Moles/Vol] 20 mmol/L High 3 - 13 mmol/L [facility] Calcium [Mass/Vol] 10.2 mg/dL 8.4 - 10. 2 mg/dL [facility] Chloride [Moles/Vol] 98 mmol/L 98 - 10 7 mmol/L [facility] CO2 [Moles/Vol] 21 mmol/L Low 22 - 29 mmol/L [facility] Creatinine [Mass/Vol] 3.62 mg/dL High 0.72 - 1.25 mg/dL [facility] GFR/1.73 sq M.predicted (S/P/Bld) [Vol rate/Area] 18.5 mL/min Low - PINF [facility] Glucose [Mass/Vol] 74 mg/dL 74 - 100 mg/dL [facility] Potassium [Moles/Vol] 4 mmol/L 3.5 - 5.1 mmol/L [facility] Sodium [Moles/Vol] 139 mmol/L 136 - 145 mmol/L [facility] Urea nitrogen [Mass/Vol] 27 mg/dL High 9 - 23 mg/d L [facility] CBC panel Auto (Bld)Ordered By: Liseth Granado on 01-24-2025 Erythrocyte distribution width (RBC) [Ratio] 19.4 % High 11.5 - 15.0 % [facility] Hematocrit (Bld) [Volume fraction] 27 % Low 40.0 - 52.0 % [facility] Hemoglobin (Bld) [Mass/Vol] 8 g/dL Low 13.0 - 18.0 g/dL [facility] Interpretation and review of laboratory results Abnormal [facility] MCH (RBC) [Entitic mass] 27.9 pg 26. 0 - 34.0 pg [facility] MCHC (RBC) [Mass/Vol] 29.6 % Low 30.5 - 36.0 % [facility] MCV (RBC) [Entitic vol] 94.1 fL 77.0 - 99.0 fL [facility] Platelet mean volume (Bld) [Entitic vol] 9.2 fL 9.0 - 12.7 fL [facility] Platelets (Bld) [#/Vol] 355 10*3/uL 140 - 440 10*3/uL [facility] RBC (Bld) [#/Vol] 2.87 10*6/uL Low 4.40 - 5.9 0 10*6/uL [facility] WBC (Bld) [#/Vol] 11.5 10*3/uL High 3.6 - 10.7 10*3/uL [facility] Hemoglobin (Bld) [Mass/Vol]o n 01-24-2025 Hematocrit (Bld) [Volume fraction] 23 % Low 40.0 - 52.0 % [facility] Interpretation and review of laboratory results Abnormal [facility] Laboratory - Chemistry and C hemistry - challengeon 01-24-2025 Lactate [Moles/Vol] 0.9 mmol/L 0.5 - 2. 2 mmol/L [facility] Laboratory - Chemistry and C hemistry - challengeOrdered By: Farhat Simons on 01-24-2025 Beta hydroxybutyrate [Mass/Vol] 10.5 mg/dL High NINF - 2.8 mg/dL [facility] Laboratory - Chemistry and C hemistry - challengeOrdered By: Anu Graham on 01-24-2025 Magnesium [Mass/Vol] 2.3 mg/dL 1.6 - 2 .6 mg/dL [facility] Laboratory - Coagulationon 0 01-24-2025 PT Coag (Bld) [Time] 15.1 s High 9.0 - 12.0 s [facility] PT Coag (Bld) [Time] 15.6 s High 9.0 - 12.0 s [facility] Laboratory - Hematology and Cell countson 01-24-2025 Hemoglobin (Bld) [Mass/Vol] 7.3 g/dL Low 13.0 - 18.0 g/dL [facility] Magnesium [Mass/Vol]Ordered By: Anu Graham on 01-24-2025 Interpretation and review of laboratory results Normal [facility] No Panel Informationon 01-24 Interpretation and review of laboratory results Abnormal [facility] Interpretation and review of laboratory results Normal [facility] Interpretation and review of laboratory results Abnormal [facility] Blood Expiration Date [id number] S [facility] Crossmatch interpretation COMP [facility] Dispense Status Released from Crossmatch [facility] Product Blood Type 9500 [facility] PRODUCT CODE [id number] [facility] ABO O [facility] Unit Number [id number] [facility] RH Negative [facility] Unit Volume 300 mL [facility] No Panel InformationOrdered By: Farhat Simons on 01-24-2025 Interpretation and review of laboratory results Abnormal [facility] No Panel InformationOrdered By: Anu Graham on 01-24-2025 [facility] PT Coag (Bld) [Time]on 01-24 INR Coag (PPP) [Relative time] 1.5 {INR} High 0.9 - 1.1 [facility] INR Coag (PPP) [Relative time] 1.5 {INR} High 0.9 - 1.1 [facility] Interpretation and review of laboratory results Abnormal [facility] Phosphate [Moles/Vol]on 12-28 Phosphate [Mass/Vol] 5.1 mg/dL High 2.3 - 4 .7 mg/dL [facility] XR Chest Single viewon 01-24 [facility] Radiology Study observation (narrative) [facility] aPTT Coag (Bld) [Time]on aPTT Coag (PPP) [Time] 33.7 s High 20.0 - 30.5 s [facility] aPTT Coag (Bld) [Time]Ordere d By: Callie Steele on 01-24-2025 aPTT Coag (PPP) [Time] 114.7 s High 20.0 - 30.5 s [facility] Interpretation and review of laboratory results Abnormal [facility] Basic metabolic 1998 panelon 01-23-2025 Anion gap [Moles/Vol] 13 mmol/L 3 - 13 mmol/L [facility] Calcium [Mass/Vol] 9.4 mg/dL 8.4 - 10. 2 mg/dL [facility] Chloride [Moles/Vol] 102 mmol/L 98 - 10 7 mmol/L [facility] CO2 [Moles/Vol] 25 mmol/L 22 - 29 mmol/L [facility] Creatinine [Mass/Vol] 2.34 mg/dL High 0.72 - 1.25 mg/dL [facility] GFR/1.73 sq M.predicted (S/P/Bld) [Vol rate/Area] 31.3 mL/min Low - PINF [facility] Glucose [Mass/Vol] 80 mg/dL 74 - 100 mg/dL [facility] Interpretation and review of laboratory results Abnormal [facility] Potassium [Moles/Vol] 3.4 mmol/L Low 3.5 - 5.1 mmol/L [facility] Sodium [Moles/Vol] 140 mmol/L 136 - 145 mmol/L [facility] Urea nitrogen [Mass/Vol] 22 mg/dL 9 - 23 mg/d L [facility] CBC W Auto Differential pane l (Bld)on 01-23-2025 Basophils (Bld) [#/Vol] 0.1 10*3/uL 0.0 - 0.2 10*3/uL [facility] Basophils/100 WBC (Bld) 1 % 0.0 - 2.0 % [facility] Eosinophils (Bld) [#/Vol] 0.7 10*3/uL High 0.0 - 0.5 10*3/uL [facility] Eosinophils/100 WBC (Bld) 6.8 % High 0.0 - 6.0 % [facility] Erythrocyte distribution width (RBC) [Ratio] 18.8 % High 11.5 - 15.0 % [facility] Hematocrit (Bld) [Volume fraction] 25.3 % Low 40.0 - 52.0 % [facility] [facility] Hemoglobin (Bld) [Mass/Vol] 7.9 g/dL Low 13.0 - 18.0 g/dL [facility] Immature granulocytes (Bld) [#/Vol] 0.1 10*3/uL High NINF - 0.1 10*3/uL [facility] Immature granulocytes/100 WBC (Bld) 1.1 % 0.0 - 2.0 % [facility] Interpretation and review of laboratory results Abnormal [facility] Lymphocytes (Bld) [#/Vol] 1.5 10*3/uL 1.0 - 4.3 10*3/uL [facility] Lymphocytes/100 WBC (Bld) 13.7 % Low 15.0 - 45.0 % [facility] MCH (RBC) [Entitic mass] 27.9 pg 26. 0 - 34.0 pg [facility] MCHC (RBC) [Mass/Vol] 31.2 % 30.5 - 36.0 % [facility] MCV (RBC) [Entitic vol] 89.4 fL 77.0 - 99.0 fL [facility] Monocytes (Bld) [#/Vol] 1.5 10*3/uL High 0.0 - 0.9 10*3/uL [facility] Monocytes/100 WBC (Bld) 13.7 % High 5.0 - 13.0 % [facility] Neutrophils (Bld) [#/Vol] 7 10*3/uL 1.8 - 7.5 10*3/uL [facility] Neutrophils/100 WBC (Bld) 63.7 % 38.0 - 82.0 % [facility] Nucleated RBC/100 WBC (Bld) [Ratio] 0 % [facility] Platelet mean volume (Bld) [Entitic vol] 9.4 fL 9.0 - 12.7 fL [facility] Platelets (Bld) [#/Vol] 346 10*3/uL 140 - 440 10*3/uL [facility] RBC (Bld) [#/Vol] 2.83 10*6/uL Low 4.40 - 5.9 0 10*6/uL [facility] WBC (Bld) [#/Vol] 10.9 10*3/uL High 3.6 - 10.7 10*3/uL [facility] Basophils (Bld) [#/Vol] 0.1 10*3/uL 0.0 - 0.2 10*3/uL [facility] Basophils/100 WBC (Bld) 1.1 % 0.0 - 2.0 % [facility] Eosinophils (Bld) [#/Vol] 0.9 10*3/uL High 0.0 - 0.5 10*3/uL [facility] Eosinophils/100 WBC (Bld) 8 % High 0.0 - 6.0 % [facility] Erythrocyte distribution width (RBC) [Ratio] 18.5 % High 11.5 - 15.0 % [facility] Hematocrit (Bld) [Volume fraction] 23.4 % Low 40.0 - 52.0 % [facility] Hemoglobin (Bld) [Mass/Vol] 7.3 g/dL Low 13.0 - 18.0 g/dL [facility] Immature granulocytes (Bld) [#/Vol] 0.1 10*3/uL High NINF - 0.1 10*3/uL [facility] Immature granulocytes/100 WBC (Bld) 1.1 % 0.0 - 2.0 % [facility] Interpretation and review of laboratory results Abnormal [facility] Lymphocytes (Bld) [#/Vol] 1.4 10*3/uL 1.0 - 4.3 10*3/uL [facility] Lymphocytes/100 WBC (Bld) 12.2 % Low 15.0 - 45.0 % [facility] MCH (RBC) [Entitic mass] 27.7 pg 26. 0 - 34.0 pg [facility] MCHC (RBC) [Mass/Vol] 31.2 % 30.5 - 36.0 % [facility] MCV (RBC) [Entitic vol] 88.6 fL 77.0 - 99.0 fL [facility] Monocytes (Bld) [#/Vol] 1.4 10*3/uL High 0.0 - 0.9 10*3/uL [facility] Monocytes/100 WBC (Bld) 12.9 % 5.0 - 13.0 % [facility] Neutrophils (Bld) [#/Vol] 7.2 10*3/uL 1.8 - 7.5 10*3/uL [facility] Neutrophils/100 WBC (Bld) 64.7 % 38.0 - 82.0 % [facility] Nucleated RBC/100 WBC (Bld) [Ratio] 0 % [facility] Platelet mean volume (Bld) [Entitic vol] 9.1 fL 9.0 - 12.7 fL [facility] Platelets (Bld) [#/Vol] 345 10*3/uL 140 - 440 10*3/uL [facility] RBC (Bld) [#/Vol] 2.64 10*6/uL Low 4.40 - 5.9 0 10*6/uL [facility] WBC (Bld) [#/Vol] 11.1 10*3/uL High 3.6 - 10.7 10*3/uL [facility] Hemoglobin (Bld) [Mass/Vol]o n 01-23-2025 Hematocrit (Bld) [Volume fraction] 25.1 % Low 40.0 - 52.0 % [facility] Interpretation and review of laboratory results Abnormal [facility] Laboratory - Chemistry and C hemistry - challengeon 01-23-2025 Glucose [Mass/Vol] 113 mg/dL High 70 - 100 mg/dL [facility] Glucose [Mass/Vol] 92 mg/dL 70 - 100 mg/dL [facility] Magnesium [Mass/Vol] 2.1 mg/dL 1.6 - 2 .6 mg/dL [facility] Laboratory - Coagulationon 0 01-23-2025 aPTT Coag (PPP) [Time] 30.6 s High 20.0 - 30.5 s [facility] INR Coag (PPP) [Relative time] 1.6 {INR} High 0.9 - 1.1 [facility] PT Coag (Bld) [Time] 16.1 s High 9.0 - 12.0 s [facility] PT Coag (Bld) [Time] 20 s High 9.0 - 12.0 s [facility] Laboratory - Hematology and Cell countson 01-23-2025 Hemoglobin (Bld) [Mass/Vol] 7.9 g/dL Low 13.0 - 18.0 g/dL [facility] Magnesium [Mass/Vol]on 01-23 Interpretation and review of laboratory results Normal [facility] No Panel Informationon 01-23 Interpretation and review of laboratory results Abnormal [facility] Interpretation and review of laboratory results Abnormal [facility] Interpretation and review of laboratory results Normal [facility] PT Coag (Bld) [Time]on 01-23 INR Coag (PPP) [Relative time] 2 {INR} High 0.9 - 1.1 [facility] Interpretation and review of laboratory results Abnormal [facility] Phosphate [Moles/Vol]Ordered By: Jenni Romano on 01-23-2025 Interpretation and review of laboratory results Normal [facility] Phosphate [Mass/Vol] 4.5 mg/dL 2.3 - 4 .7 mg/dL [facility] Basic metabolic 1998 panelOr dered By: Nathaly Dobson on 01-22-2025 Anion gap [Moles/Vol] 13 mmol/L 3 - 13 mmol/L [facility] Calcium [Mass/Vol] 9.8 mg/dL 8.4 - 10. 2 mg/dL [facility] Chloride [Moles/Vol] 94 mmol/L Low 98 - 10 7 mmol/L [facility] CO2 [Moles/Vol] 25 mmol/L 22 - 29 mmol/L [facility] Creatinine [Mass/Vol] 4.18 mg/dL High 0.72 - 1.25 mg/dL [facility] GFR/1.73 sq M.predicted (S/P/Bld) [Vol rate/Area] 15.6 mL/min Low - PINF [facility] Glucose [Mass/Vol] 70 mg/dL Low 74 - 100 mg/dL [facility] Interpretation and review of laboratory results Abnormal [facility] Potassium [Moles/Vol] 4.4 mmol/L 3.5 - 5.1 mmol/L [facility] Sodium [Moles/Vol] 132 mmol/L Low 136 - 145 mmol/L [facility] Urea nitrogen [Mass/Vol] 53 mg/dL High 9 - 23 mg/d L [facility] CBC W Auto Differential pane l (Bld)Ordered By: Tiffanie Chand on 01-22-2025 Basophils (Bld) [#/Vol] 0.1 10*3/uL 0.0 - 0.2 10*3/uL [facility] Basophils/100 WBC (Bld) 0.8 % 0.0 - 2.0 % [facility] Eosinophils (Bld) [#/Vol] 0.7 10*3/uL High 0.0 - 0.5 10*3/uL [facility] Eosinophils/100 WBC (Bld) 6.1 % High 0.0 - 6.0 % [facility] Erythrocyte distribution width (RBC) [Ratio] 18.4 % High 11.5 - 15.0 % [facility] Hematocrit (Bld) [Volume fraction] 23.9 % Low 40.0 - 52.0 % [facility] Hemoglobin (Bld) [Mass/Vol] 7.4 g/dL Low 13.0 - 18.0 g/dL [facility] Immature granulocytes (Bld) [#/Vol] 0.1 10*3/uL High NINF - 0.1 10*3/uL [facility] Immature granulocytes/100 WBC (Bld) 1.1 % 0.0 - 2.0 % [facility] Interpretation and review of laboratory results Abnormal [facility] Lymphocytes (Bld) [#/Vol] 1 10*3/uL 1.0 - 4.3 10*3/uL [facility] Lymphocytes/100 WBC (Bld) 9.7 % Low 15.0 - 45.0 % [facility] MCH (RBC) [Entitic mass] 27.5 pg 26. 0 - 34.0 pg [facility] MCHC (RBC) [Mass/Vol] 31 % 30.5 - 36.0 % [facility] MCV (RBC) [Entitic vol] 88.8 fL 77.0 - 99.0 fL [facility] Monocytes (Bld) [#/Vol] 1.5 10*3/uL High 0.0 - 0.9 10*3/uL [facility] Monocytes/100 WBC (Bld) 14.5 % High 5.0 - 13.0 % [facility] Neutrophils (Bld) [#/Vol] 7.2 10*3/uL 1.8 - 7.5 10*3/uL [facility] Neutrophils/100 WBC (Bld) 67.8 % 38.0 - 82.0 % [facility] Nucleated RBC/100 WBC (Bld) [Ratio] 0 % [facility] Platelet mean volume (Bld) [Entitic vol] 8.2 fL Low 9.0 - 12.7 fL [facility] Platelets (Bld) [#/Vol] 292 10*3/uL 140 - 440 10*3/uL [facility] RBC (Bld) [#/Vol] 2.69 10*6/uL Low 4.40 - 5.9 0 10*6/uL [facility] WBC (Bld) [#/Vol] 10.6 10*3/uL 3.6 - 10.7 10*3/uL [facility] CBC W Auto Differential pane l (Bld)on 01-22-2025 Basophils (Bld) [#/Vol] 0.1 10*3/uL 0.0 - 0.2 10*3/uL [facility] Basophils/100 WBC (Bld) 1.1 % 0.0 - 2.0 % [facility] Eosinophils (Bld) [#/Vol] 0.8 10*3/uL High 0.0 - 0.5 10*3/uL [facility] Eosinophils/100 WBC (Bld) 7.9 % High 0.0 - 6.0 % [facility] Erythrocyte distribution width (RBC) [Ratio] 18.6 % High 11.5 - 15.0 % [facility] Hematocrit (Bld) [Volume fraction] 25.1 % Low 40.0 - 52.0 % [facility] Hemoglobin (Bld) [Mass/Vol] 8 g/dL Low 13.0 - 18.0 g/dL [facility] Immature granulocytes (Bld) [#/Vol] 0.1 10*3/uL High NINF - 0.1 10*3/uL [facility] Immature granulocytes/100 WBC (Bld) 0.8 % 0.0 - 2.0 % [facility] Interpretation and review of laboratory results Abnormal [facility] Lymphocytes (Bld) [#/Vol] 1.5 10*3/uL 1.0 - 4.3 10*3/uL [facility] Lymphocytes/100 WBC (Bld) 14.1 % Low 15.0 - 45.0 % [facility] MCH (RBC) [Entitic mass] 27.7 pg 26. 0 - 34.0 pg [facility] MCHC (RBC) [Mass/Vol] 31.9 % 30.5 - 36.0 % [facility] MCV (RBC) [Entitic vol] 86.9 fL 77.0 - 99.0 fL [facility] Monocytes (Bld) [#/Vol] 1.5 10*3/uL High 0.0 - 0.9 10*3/uL [facility] Monocytes/100 WBC (Bld) 14 % High 5.0 - 13.0 % [facility] Neutrophils (Bld) [#/Vol] 6.6 10*3/uL 1.8 - 7.5 10*3/uL [facility] Neutrophils/100 WBC (Bld) 62.1 % 38.0 - 82.0 % [facility] Nucleated RBC/100 WBC (Bld) [Ratio] 0 % [facility] Platelet mean volume (Bld) [Entitic vol] 8.8 fL Low 9.0 - 12.7 fL [facility] Platelets (Bld) [#/Vol] 330 10*3/uL 140 - 440 10*3/uL [facility] RBC (Bld) [#/Vol] 2.89 10*6/uL Low 4.40 - 5.9 0 10*6/uL [facility] WBC (Bld) [#/Vol] 10.6 10*3/uL 3.6 - 10.7 10*3/uL [facility] Coagulation index TEG Qn (Bl d)Ordered By: Santhosh Acevedo on 01-22-2025 APTEM A10 72 mm High 50 - 70 mm [facility] APTEM A20 75 mm High 50 - 70 mm [facility] Clot angle TEG (Bld) [Angle] 82 High [facility] Clot formation.extrinsic coagulation system activated Rotational TEG (Bld) [Time] 200 s High 43 - 82 s [facility] Clot formation.extrinsic coagulation system activated Rotational TEG (Bld) [Time] 42 s Low 48 - 127 s [facility] Clot formation.extrinsic coagulation system activated Rotational TEG (Bld) [Time] 82 High [facility] Clot formation.extrinsic coagulation system activated Rotational TEG (Bld) [Time] 73 mm High 50 - 70 mm [facility] Clot formation.extrinsic coagulation system activated Rotational TEG (Bld) [Time] 76 mm High 52 - 70 mm [facility] Clot formation.extrinsic coagulation system activated.fibrinolysis suppressed Rotational TEG (Bld) [Time] 44 s Low 48 - 127 s [facility] Clot formation.extrinsic coagulation system activated.fibrinolysis suppressed Rotational TEG (Bld) [Time] 33 mm [facility] Clot formation.extrinsic coagulation system activated.fibrinolysis suppressed Rotational TEG (Bld) [Time] 35 mm [facility] Clot formation.extrinsic coagulation system activated.fibrinolysis suppressed Rotational TEG (Bld) [Time] 36 mm High 7 - 24 mm [facility] Clotting time.extrinsic coagulation system activated.fibrinolysis suppressed Rotational TEG (Bld) 232 s High 43 - 82 s [facility] Interpretation and review of laboratory results Abnormal [facility] Maximum clot firmness.extrinsic coagulation system activated.fibrinolysis suppressed Rotational TEG (Bld) [Length] 75 mm High 52 - 70 mm [facility] Hemoglobin (Bld) [Mass/Vol]o n 01-22-2025 Hematocrit (Bld) [Volume fraction] 24.5 % Low 40.0 - 52.0 % [facility] Interpretation and review of laboratory results Abnormal [facility] Hepatic function 2000 panelo n 01-22-2025 Albumin [Mass/Vol] 2.2 g/dL Low 3.5 - 5.0 g/dL [facility] ALP [Catalytic activity/Vol] 274 U/L High 40 - 150 U/L [facility] ALT [Catalytic activity/Vol] 44 U/L High NINF - 40 U/L [facility] AST [Catalytic activity/Vol] 51 U/L High NINF - 34 U/L [facility] Bilirubin [Mass/Vol] 0.9 mg/dL NINF - 1.2 mg/dL [facility] Bilirubin.conjugated [Mass/Vol] 0.7 mg/dL High NINF - 0.5 mg/dL [facility] Protein [Mass/Vol] 7.6 g/dL 6.4 - 8.3 g/dL [facility] Laboratory - Chemistry and C hemistry - challengeon 01-22-2025 Glucose [Mass/Vol] 101 mg/dL High 70 - 100 mg/dL [facility] Glucose [Mass/Vol] 77 mg/dL 70 - 100 mg/dL [facility] Glucose [Mass/Vol] 81 mg/dL 70 - 100 mg/dL [facility] Magnesium [Mass/Vol] 2.6 mg/dL 1.6 - 2 .6 mg/dL [facility] Glucose [Mass/Vol] 82 mg/dL 70 - 100 mg/dL [facility] Laboratory - Coagulationon 0 01-22-2025 aPTT Coag (PPP) [Time] 42.7 s High 20.0 - 30.5 s [facility] INR Coag (PPP) [Relative time] 3.1 {INR} High 0.9 - 1.1 [facility] PT Coag (Bld) [Time] 31 s High 9.0 - 12.0 s [facility] Fibrin D-dimer FEU (PPP) [Mass/Vol] 14.21 mg/L High NINF - 0.50 mg/L [facility] Fibrinogen Coag (PPP) [Mass/Vol] 436 mg/dL High 200 - 400 mg/dL [facility] Laboratory - CoagulationOrde red By: Maggy Lancaster on 01-22-2025 aPTT Coag (PPP) [Time] 48.1 s High 20.0 - 30.5 s [facility] INR Coag (PPP) [Relative time] 5.5 {INR} Critically high 0.9 - 1.1 [facility] PT Coag (Bld) [Time] 52.6 s High 9.0 - 12.0 s [facility] Laboratory - CoagulationOrde red By: Michelle Olmstead on 01-22-2025 PT Coag (Bld) [Time] 75.4 s High 9.0 - 12.0 s [facility] Laboratory - Hematology and Cell countson 01-22-2025 Hemoglobin (Bld) [Mass/Vol] 7.7 g/dL Low 13.0 - 18.0 g/dL [facility] Magnesium [Mass/Vol]on 01-22 Interpretation and review of laboratory results Normal [facility] No Panel Informationon 01-22 Interpretation and review of laboratory results Abnormal [facility] Interpretation and review of laboratory results Abnormal [facility] Blood Expiration Date [id number] S [facility] Dispense Status Transfused [facility] Product Blood Type 6200 [facility] PRODUCT CODE [id number] [facility] Unit ABO A [facility] Unit Number [id number] [facility] RH Positive [facility] Unit Volume 209 ml [facility] Interpretation and review of laboratory results Normal [facility] Interpretation and review of laboratory results Normal [facility] Interpretation and review of laboratory results Abnormal [facility] Interpretation and review of laboratory results Abnormal [facility] Interpretation and review of laboratory results Normal [facility] No Panel InformationOrdered By: Maggy Lancaster on 01-22-2025 Interpretation and review of laboratory results Abnormal [facility] PT Coag (Bld) [Time]Ordered By: Michelle Olmstead on 01-22-2025 INR Coag (PPP) [Relative time] 8.1 {INR} Critically high 0.9 - 1.1 [facility] Interpretation and review of laboratory results Abnormal [facility] Phosphate [Moles/Vol]on 12-27 Phosphate [Mass/Vol] 6.8 mg/dL High 2.3 - 4 .7 mg/dL [facility] aPTT Coag (Bld) [Time]on aPTT Coag (PPP) [Time] 46 s High 20.0 - 30.5 s [facility] Basic metabolic 1998 panelOr dered By: Jarred José on 01-21-2025 Anion gap [Moles/Vol] 15 mmol/L High 3 - 13 mmol/L [facility] Calcium [Mass/Vol] 9.9 mg/dL 8.4 - 10. 2 mg/dL [facility] Chloride [Moles/Vol] 96 mmol/L Low 98 - 10 7 mmol/L [facility] CO2 [Moles/Vol] 24 mmol/L 22 - 29 mmol/L [facility] Creatinine [Mass/Vol] 2.99 mg/dL High 0.72 - 1.25 mg/dL [facility] GFR/1.73 sq M.predicted (S/P/Bld) [Vol rate/Area] 23.3 mL/min Low - PINF [facility] Glucose [Mass/Vol] 60 mg/dL Low 74 - 100 mg/dL [facility] Interpretation and review of laboratory results Abnormal [facility] Potassium [Moles/Vol] 4.3 mmol/L 3.5 - 5.1 mmol/L [facility] Sodium [Moles/Vol] 135 mmol/L Low 136 - 145 mmol/L [facility] Urea nitrogen [Mass/Vol] 46 mg/dL High 9 - 23 mg/d L [facility] CBC W Auto Differential pane l (Bld)on 01-21-2025 Basophils (Bld) [#/Vol] 0.1 10*3/uL 0.0 - 0.2 10*3/uL [facility] Basophils/100 WBC (Bld) 1 % 0.0 - 2.0 % [facility] Eosinophils (Bld) [#/Vol] 0.4 10*3/uL 0.0 - 0.5 10*3/uL [facility] Eosinophils/100 WBC (Bld) 3.8 % 0.0 - 6.0 % [facility] Erythrocyte distribution width (RBC) [Ratio] 18.6 % High 11.5 - 15.0 % [facility] Hematocrit (Bld) [Volume fraction] 27.3 % Low 40.0 - 52.0 % [facility] Hemoglobin (Bld) [Mass/Vol] 8.3 g/dL Low 13.0 - 18.0 g/dL [facility] Immature granulocytes (Bld) [#/Vol] 0.1 10*3/uL High NINF - 0.1 10*3/uL [facility] Immature granulocytes/100 WBC (Bld) 1.2 % 0.0 - 2.0 % [facility] Interpretation and review of laboratory results Abnormal [facility] Lymphocytes (Bld) [#/Vol] 1.7 10*3/uL 1.0 - 4.3 10*3/uL [facility] Lymphocytes/100 WBC (Bld) 16.5 % 15.0 - 45.0 % [facility] MCH (RBC) [Entitic mass] 27 pg 26. 0 - 34.0 pg [facility] MCHC (RBC) [Mass/Vol] 30.4 % Low 30.5 - 36.0 % [facility] MCV (RBC) [Entitic vol] 88.9 fL 77.0 - 99.0 fL [facility] Monocytes (Bld) [#/Vol] 1.4 10*3/uL High 0.0 - 0.9 10*3/uL [facility] Monocytes/100 WBC (Bld) 14.3 % High 5.0 - 13.0 % [facility] Neutrophils (Bld) [#/Vol] 6.4 10*3/uL 1.8 - 7.5 10*3/uL [facility] Neutrophils/100 WBC (Bld) 63.2 % 38.0 - 82.0 % [facility] Nucleated RBC/100 WBC (Bld) [Ratio] 0 % [facility] Platelet mean volume (Bld) [Entitic vol] 8.7 fL Low 9.0 - 12.7 fL [facility] Platelets (Bld) [#/Vol] 365 10*3/uL 140 - 440 10*3/uL [facility] RBC (Bld) [#/Vol] 3.07 10*6/uL Low 4.40 - 5.9 0 10*6/uL [facility] WBC (Bld) [#/Vol] 10.1 10*3/uL 3.6 - 10.7 10*3/uL [facility] CBC panel Auto (Bld)Ordered By: Piedad Alvarado on 01-21-2025 Erythrocyte distribution width (RBC) [Ratio] 18.6 % High 11.5 - 15.0 % [facility] Hematocrit (Bld) [Volume fraction] 25.3 % Low 40.0 - 52.0 % [facility] Hemoglobin (Bld) [Mass/Vol] 8 g/dL Low 13.0 - 18.0 g/dL [facility] Interpretation and review of laboratory results Abnormal [facility] MCH (RBC) [Entitic mass] 27.7 pg 26. 0 - 34.0 pg [facility] MCHC (RBC) [Mass/Vol] 31.6 % 30.5 - 36.0 % [facility] MCV (RBC) [Entitic vol] 87.5 fL 77.0 - 99.0 fL [facility] Platelet mean volume (Bld) [Entitic vol] 9.1 fL 9.0 - 12.7 fL [facility] Platelets (Bld) [#/Vol] 353 10*3/uL 140 - 440 10*3/uL [facility] RBC (Bld) [#/Vol] 2.89 10*6/uL Low 4.40 - 5.9 0 10*6/uL [facility] WBC (Bld) [#/Vol] 9.2 10*3/uL 3.6 - 10.7 10*3/uL [facility] Hemoglobin (Bld) [Mass/Vol]o n 01-21-2025 Hematocrit (Bld) [Volume fraction] 22.4 % Low 40.0 - 52.0 % [facility] Interpretation and review of laboratory results Abnormal [facility] Laboratory - Chemistry and C hemistry - challengeon 01-21-2025 Glucose [Mass/Vol] 86 mg/dL 70 - 100 mg/dL [facility] Glucose [Mass/Vol] 92 mg/dL 70 - 100 mg/dL [facility] Glucose [Mass/Vol] 92 mg/dL 70 - 100 mg/dL [facility] Glucose [Mass/Vol] 107 mg/dL High 70 - 100 mg/dL [facility] Glucose [Mass/Vol] 129 mg/dL High 70 - 100 mg/dL [facility] Glucose [Mass/Vol] 67 mg/dL Low 70 - 100 mg/dL [facility] Magnesium [Mass/Vol] 2.5 mg/dL 1.6 - 2 .6 mg/dL [facility] Glucose [Mass/Vol] 74 mg/dL 70 - 100 mg/dL [facility] Laboratory - CoagulationOrde red By: Treva Mcfarland on 01-21-2025 PT Coag (Bld) [Time] 73.5 s High 9.0 - 12.0 s [facility] Laboratory - Hematology and Cell countson 01-21-2025 Hemoglobin (Bld) [Mass/Vol] 7.1 g/dL Low 13.0 - 18.0 g/dL [facility] Magnesium [Mass/Vol]on 01-21 Interpretation and review of laboratory results Normal [facility] No Panel Informationon 01-21 Interpretation and [...] Interpretation and review of laboratory results Abnormal [facility] Interpretation and review of laboratory results Normal [facility] PT Coag (Bld) [Time]Ordered By: Treva Mcfarland on 01-21-2025 INR Coag (PPP) [Relative time] 7.9 {INR} Critically high 0.9 - 1.1 [facility] Interpretation and review of laboratory results Abnormal [facility] Phosphate [Moles/Vol]on 12-27 Interpretation and review of laboratory results Abnormal [facility] Phosphate [Mass/Vol] 5.3 mg/dL High 2.3 - 4 .7 mg/dL [facility] Basic metabolic 1998 panelon 01-20-2025 Anion gap [Moles/Vol] 15 mmol/L High 3 - 13 mmol/L [facility] Calcium [Mass/Vol] 9.2 mg/dL 8.4 - 10. 2 mg/dL [facility] Chloride [Moles/Vol] 98 mmol/L 98 - 10 7 mmol/L [facility] CO2 [Moles/Vol] 22 mmol/L 22 - 29 mmol/L [facility] Creatinine [Mass/Vol] 4.31 mg/dL High 0.72 - 1.25 mg/dL [facility] GFR/1.73 sq M.predicted (S/P/Bld) [Vol rate/Area] 15 mL/min Low - PINF [facility] Glucose [Mass/Vol] 68 mg/dL Low 74 - 100 mg/dL [facility] Interpretation and review of laboratory results Abnormal [facility] Potassium [Moles/Vol] 4.8 mmol/L 3.5 - 5.1 mmol/L [facility] Sodium [Moles/Vol] 135 mmol/L Low 136 - 145 mmol/L [facility] Urea nitrogen [Mass/Vol] 91 mg/dL High 9 - 23 mg/d L [facility] Blood type and Crossmatch pa freida (Bld)on 01-20-2025 ABO group Nom (Bld) O [facility] Blood group antibody screen GEL Ql Negative [facility] D Ag Ql (RBC) Negative [facility] CBC W Auto Differential pane l (Bld)Ordered By: Haley Vitale on 01-20-2025 Basophils (Bld) [#/Vol] 0.1 10*3/uL 0.0 - 0.2 10*3/uL [facility] Basophils/100 WBC (Bld) 1.1 % 0.0 - 2.0 % [facility] Eosinophils (Bld) [#/Vol] 0.5 10*3/uL 0.0 - 0.5 10*3/uL [facility] Eosinophils/100 WBC (Bld) 4.5 % 0.0 - 6.0 % [facility] Erythrocyte distribution width (RBC) [Ratio] 18.3 % High 11.5 - 15.0 % [facility] Hematocrit (Bld) [Volume fraction] 21.3 % Low 40.0 - 52.0 % [facility] Hemoglobin (Bld) [Mass/Vol] 6.6 g/dL Critically low 13.0 - 18.0 g/dL [facility] Immature granulocytes (Bld) [#/Vol] 0.1 10*3/uL High NINF - 0.1 10*3/uL [facility] Immature granulocytes/100 WBC (Bld) 1 % 0.0 - 2.0 % [facility] Interpretation and review of laboratory results Abnormal [facility] Lymphocytes (Bld) [#/Vol] 1.2 10*3/uL 1.0 - 4.3 10*3/uL [facility] Lymphocytes/100 WBC (Bld) 11.6 % Low 15.0 - 45.0 % [facility] MCH (RBC) [Entitic mass] 27.4 pg 26. 0 - 34.0 pg [facility] MCHC (RBC) [Mass/Vol] 31 % 30.5 - 36.0 % [facility] MCV (RBC) [Entitic vol] 88.4 fL 77.0 - 99.0 fL [facility] Monocytes (Bld) [#/Vol] 1.1 10*3/uL High 0.0 - 0.9 10*3/uL [facility] Monocytes/100 WBC (Bld) 10.1 % 5.0 - 13.0 % [facility] Neutrophils (Bld) [#/Vol] 7.5 10*3/uL 1.8 - 7.5 10*3/uL [facility] Neutrophils/100 WBC (Bld) 71.7 % 38.0 - 82.0 % [facility] Nucleated RBC/100 WBC (Bld) [Ratio] 0 % [facility] Platelet mean volume (Bld) [Entitic vol] 9 fL 9.0 - 12.7 fL [facility] Platelets (Bld) [#/Vol] 279 10*3/uL 140 - 440 10*3/uL [facility] RBC (Bld) [#/Vol] 2.41 10*6/uL Low 4.40 - 5.9 0 10*6/uL [facility] WBC (Bld) [#/Vol] 10.5 10*3/uL 3.6 - 10.7 10*3/uL [facility] CT Abdomen and Pelvis W cont rast Dimitrios 01-20-2025 [facility] RAD[facility] Radiology Study observation (narrative) [facility] CT Abdomen and Pelvis W cont rast IVOrdered By: Karly Parker on 01-20-2025 [facility] Work Phone: Hemoglobin (Bld) [Mass/Vol]o n 01-20-2025 Hematocrit (Bld) [Volume fraction] 25.8 % Low 40.0 - 52.0 % [facility] Interpretation and review of laboratory results Abnormal [facility] Hematocrit (Bld) [Volume fraction] 25.7 % Low 40.0 - 52.0 % [facility] Interpretation and review of laboratory results Abnormal [facility] Hematocrit (Bld) [Volume fraction] 25.8 % Low 40.0 - 52.0 % [facility] Interpretation and review of laboratory results Abnormal [facility] Laboratory - Chemistry and C hemistry - challengeon 01-20-2025 Magnesium [Mass/Vol] 2.8 mg/dL High 1.6 - 2 .6 mg/dL [facility] Laboratory - Hematology and Cell countson 01-20-2025 Hemoglobin (Bld) [Mass/Vol] 8.3 g/dL Low 13.0 - 18.0 g/dL [facility] Hemoglobin (Bld) [Mass/Vol] 8.2 g/dL Low 13.0 - 18.0 g/dL [facility] Hemoglobin (Bld) [Mass/Vol] 8.2 g/dL Low 13.0 - 18.0 g/dL [facility] Magnesium [Mass/Vol]on 01-20 [facility] No Panel Informationon 01-20 Interpretation and review of laboratory results Abnormal [facility] Phosphate [Moles/Vol]on 12-27 Phosphate [Mass/Vol] 6.1 mg/dL High 2.3 - 4 .7 mg/dL [facility] No Panel Informationon 01-19 P Tiona 69 degrees [facility] UT Interval 148 ms [facility] QRS Tiona 93 degrees [facility] QRSD [facility] 113 [facility]val 413 ms [facility] QTC Interval 515 ms [facility] T Wave Tiona 87 degrees [facility] CV EPIPHANY [facility] 4h Troponin HS (Serial 3rd Troponin) 94 ng/L High NINF - 35 ng/L [facility] Interpretation and review of laboratory results Abnormal [facility] 2h Troponin HS (Serial 2nd Troponin) 106 ng/L High NINF - 35 ng/L [facility] Interpretation and review of laboratory results Abnormal [facility] Vital signson 01-19-2025 Heart rate 93 /min bpm [facility] Airwayon 10-12-2024 Rudolph German CRNA 10/12/2024 7:56 AM Airway Date/Time: 10/12/2024 7:38 AM Urgency: scheduled Airway not difficult General Information and Staff Patient location during procedure: Procedural Anesthesiologist: Vincent Wilson MD Resident/MUNICIPAL BOND TRADER: Rudolph German CRNA Performed: anesthesiologist Indications and [...] 21 Number of attempts at approach: 1 [facility] Arterial Lineon 10-12-2024 Rudolph German [...] procedure well with no complications. Staffing Performed: DECLAN Resident/MUNICIPAL BOND TRADER: Rudolph German CRNA [facility] Central Venous Lineon 2024 Rudolph German [...] during the procedure: no complications. Staffing Performed: MUNICIPAL BOND TRADER Resident/MUNICIPAL BOND TRADER: Rudolph German CRNA [facility] No Panel Informationon 10-12 [facility] CT Head WO contraston 2024 No acute intracranial hemorrhage or large territorial infarct. Nonspecific small air locules within the scalp adjacent to the right temporal bone and within the right meal grinder tender space. Pneumatized secretions within the maxillary sinuses may correspond with acute sinusitis in the appropriate clinical setting. Report Dictated on Electronically Signed By: Yvonne Abraham DO Electronically Signed Date/Time: 10/03/2024 2:14 PM [facility] 1965 [id number] Exam Date/Time: 10/03/2024 11:26 Procedure: CT HEAD [...] right temporal bone and within the right meal grinder tender space. [facility] Yvonne Abraham DO - 10/03/2024 [facility] Name: [facility] 1965 [id number] Exam Date/Time: 10/03/2024 11:26 Procedure: CT HEAD [...] right temporal bone and within the right meal grinder tender space. IMPRESSION: No acute intracranial hemorrhage or large territorial infarct. Nonspecific small air locules within the scalp adjacent to the right temporal bone and within the right meal grinder tender space. Pneumatized secretions within the maxillary sinuses may correspond with acute sinusitis in the appropriate clinical setting. Report Dictated on Electronically Signed By: Yvonne Abraham DO Electronically Signed Date/Time: 10/03/2024 2:14 PM EST [facility] Radiology Study observation (narrative) [facility] Head WO contrastOrdered B y: Yvonne Abraham on 10-03-2024 [employer] [facility] Work Phone: XR Chest Single viewon 10-03 No focal consolidation or pulmonary edema. Report Dictated on Electronically Signed By: Bob Ken MD Electronically Signed Date/Time: 10/03/2024 12:22 PM EST [facility] Patient Name: JUN [...] change of the thoracic spine is noted. [facility] Bob Ken MD - 10/03/2024 Patient [...] Electronically Signed Date/Time: 10/03/2024 12:22 PM EST [facility] Radiology Study observation (narrative) [facility] XR Chest Single viewOrdered By: Bob Ken on 10-03-2024 [facility] Work Phone: ECG 12 leadon 08-28-2024 Sinus Rhythm -Incomplete right bundle branch block. -Left atrial enlargement. Voltage criteria for LVH (S(V1)+R(V6) exceeds 3.50 mV). -ST depression -Seen with left ventricular hypertrophy (strain) -consider ischemia. [facility] CNPAllison 04-12-2024 CNPN Telephone (TXCTGL) LILLIANJUN CRUZ ([id number]) 1965 M Date Time Provider Department 04/12/24 [...] Status:Closed by LANIE LUIS on 04/12/24 Normal [facility] ECG 12 leadon 11-12-2023 Sinus Rhythm -Left atrial enlargement. IRBBB LVH with repolarization ABNORMAL [employer] [facility] ECG 12 leadOrdered By: Michaela Coombs on 11-12-2023 [employer] Work Phone: Basic metabolic 1998 panelon 08-17-2023 Anion gap [Moles/Vol] 15 mmol/L High 3 - 13 mmol/L [employer] [facility] Calcium [Mass/Vol] 8.7 mg/dL 8.4 - 10. 4 mg/dL [employer] [facility] Chloride [Moles/Vol] 94 mmol/L Low 98 - 10 7 mmol/L [employer] [facility] CO2 [Moles/Vol] 26 mmol/L 22 - 30 mmol/L [facility] Creatinine [Mass/Vol] 6.78 mg/dL High 0.66 - 1.25 mg/dL [facility] GFR/1.73 sq M.predicted MDRD (S/P/Bld) [Vol rate/Area] 8.8 mL/min/{1.73_m2} Low - PINF [facility] Comment on above: Calculation based on the Chronic Kidney Disease Epidemiology Collaboration (CKD-EPI) equation refit without adjustment for race Glucose [Mass/Vol] 102 mg/dL High 70 - 100 mg/dL [facility] Interpretation and review of laboratory results Abnormal [facility] Potassium [Moles/Vol] 5.0 mmol/L 3.5 - 5.1 mmol/L [facility] Sodium [Moles/Vol] 134 mmol/L Low 135 - 145 mmol/L [facility] Urea nitrogen [Mass/Vol] 46 mg/dL High 9 - 20 mg/d L [facility] Laboratory - Chemistry and C hemistry - challengeon 08-17-2023 Magnesium [Mass/Vol] 2.1 mg/dL 1.6 - 2 .3 mg/dL [facility] TSH Qn 0.981 m[IU]/L [facility] TSH Qn 1.190 m[IU]/L [facility] Troponin I.cardiac [Mass/Vol] 0.094 ng/mL High NINF - 0.034 ng/mL [facility] Magnesium [Mass/Vol]on 08-17 Interpretation and review of laboratory results Normal [facility] No Panel InformationOrdered By: Ruy Milton on 08-17-2023 P Tiona degrees [employer] Work Phone: UT Interval ms [employer] Work Phone: QRS Tiona 61 degrees [employer] Work Phone: QRSD Interval 114 ms [employer] Work Phone: QT Interval 364 ms [employer] Work Phone: QTC Interval 491 ms [employer] Work Phone: T Wave Tiona -20 degrees [employer] Work Phone: [employer] Work Phone: No Panel Informationon 08-17 ATRIAL [...] On 08-17-2023 6:57:31 EST by Ruy Milton [facility] TSH Qnon 08-17-2023 Interpretation and review of laboratory results Normal [facility] Interpretation and review of laboratory results Normal [facility] Troponin I.cardiac [Mass/Vol ]on 08-17-2023 Interpretation and review of laboratory results Abnormal [facility] Patients with high levels of Biotin oral intake (ie >5 mg/day) may have falsely decreased Troponin levels. [facility] US Heart TransthoracicOrdere d By: Jr Shah on 08-17-2023 Ao Root Index 1.58 cm/m2 [facility] Work Phone: Aortic Root 3.3 cm [facility] Work Phone: Ascending Aorta 3.3 cm [facility] Work Phone: Ascending Aorta Index 1.58 cm/m2 [facility] Work Phone: AV Area by Peak Velocity 1.1 cm2 [facility] Work Phone: AV Area by VTI 1.1 cm2 [facility] Work Phone: AV AT 97.05 ms [facility] Work Phone: AV Mean Gradient 34 mmHg [facility] Work Phone: AV Mean Velocity 2.7 m/s [facility] Work Phone: AV Peak Gradient 59 mmHg [facility] Work Phone: AV Peak Velocity 3.8 m/s [facility] Work Phone: [phone] AV Velocity Ratio 0.26 [facility] Work Phone: [phone] AV VTI 84.0 cm [facility] Work Phone: [phone] MALU/BSA Peak Velocity 0.5 cm2/m2 [facility] Work Phone: [phone] MALU/BSA VTI 0.5 cm2/m2 [facility] Work Phone: E/E' Lateral 11.44 [facility] Work Phone: [phone] E/E' Ratio (Averaged) 13.08 [facility] Work Phone: [phone] E/E' Septal 14.71 [facility] Work Phone: EF BP 62 % 55 - 100 % [facility] Work Phone: Est. RA Pressure 0 mmHg [facility] Work Phone: [phone] Fractional Shortening 2D 30 % 28 - 44 % [facility] Work Phone: [phone] Interpretation and review of laboratory results Abnormal [facility] Work Phone: IVC Diameter 1.1 cm [facility] Work Phone: IVSd 1.1 cm Abnormal 0.6 - 1.0 cm [facility] Work Phone: [phone] LA Diameter 4.0 cm [facility] Work [phone] LA Size Index 1.91 cm/m2 [facility] Work Phone: LA Volume 2C 66 mL Abnormal 18 - 58 mL [facility] Work Phone: [phone] LA Volume 4C 71 mL Abnormal 18 - 58 mL [facility] Work Phone: LA Volume A/L 75 mL [facility] Work Phone: LA Volume BP 69 mL Abnormal 18 - 58 mL [facility] Work Phone: [phone] LA Volume Index 2C 32 mL/m2 16 - 34 mL/m2 [facility] Work Phone: LA Volume Index 4C 34 mL/m2 16 - 34 mL/m2 [facility] Work Phone: LA Volume Index A/L 36 mL/m2 16 - 34 mL/m2 [facility] Work Phone: LA Volume Index BP 33 ml/m2 16 - 34 ml/m2 [facility] Work Phone: LA/AO Root Ratio 1.21 [facility] Work Phone: LV E' Lateral Velocity 9 cm/s [facility] Work Phone: LV E' Septal Velocity 7 cm/s [facility] Work Phone: LV EDV A2C 104 mL [facility] Work Phone: LV EDV A4C 89 mL [facility] Work Phone: LV EDV BP 97 mL 67 - 155 mL [facility] Work Phone: LV EDV Index A2C 50 mL/m2 [facility] Work Phone: LV EDV Index A4C 43 mL/m2 [facility] Work Phone: LV EDV Index BP 46 mL/m2 [facility] Work Phone: LV Ejection Fraction A2C 61 % [facility] Work Phone: LV Ejection Fraction A4C 64 % [facility] Work Phone: LV ESV A2C 41 mL [facility] Work Phone: LV ESV A4C 32 mL [facility] Work Phone: LV ESV BP 37 mL 22 - 58 mL [facility] Work Phone: LV ESV Index A2C 20 mL/m2 [facility] Work Phone: LV ESV Index A4C 15 mL/m2 [facility] Work Phone: LV ESV Index BP 18 mL/m2 [facility] Work Phone: LV Mass 2D 173.6 g 88 - 224 g [facility] Work Phone: LV Mass 2D Index 83.1 g/m2 49 - 115 g/m2 [facility] Work Phone: LV RWT Ratio 0.56 [facility] Work Phone: LVIDd 4.3 cm 4.2 - 5.9 cm [facility] Work Phone: LVIDd Index 2.06 cm/m2 [facility] Work Phone: LVIDs 3.0 cm [facility] Work Phone: LVIDs Index 1.44 cm/m2 [facility] Work Phone: LVOT Area 4.2 cm2 [facility] Work Phone: LVOT Cardiac Output 7.6 liter/minute [facility] Work Phone: LVOT Diameter 2.3 cm [facility] [employer] Work Phone: LVOT Mean Gradient 2 mmHg [facility] Work Phone: LVOT Peak Gradient 4 mmHg [facility] Work Phone: LVOT Peak Velocity 1.0 m/s [facility] Work Phone: [phone] LVOT Stroke Volume Index 46.5 mL/m2 [facility] Work Phone: [phone] LVOT SV 97.2 ml [facility] Work Phone: [phone] LVOT VTI 23.4 cm [facility] Work Phone: [phone] LVOT:AV VTI Index 0.28 [facility] [employer] [facility] Work Phone: LVPWd 1.2 cm Abnormal 0.6 - 1.0 cm [facility] Work Phone: [phone] MV A Velocity 0.79 m/s [facility] Work Phone: [phone] MV Area by PHT 1.9 cm2 [facility] Work Phone: [phone] MV E Velocity 1.03 m/s [facility] Work Phone: [phone] MV E Wave Deceleration Time 278.6 ms [facility] Work Phone: MV E/A 1.30 [facility] Work Phone: [phone] MV Mean Gradient 3 mmHg [facility] Work Phone: [phone] MV Peak Gradient 6 mmHg [facility] Work Phone: [phone] MV PHT 113.0 ms [facility] Work Phone: [phone] RA Area 4C 79.9 mL [facility] Work Phone: [phone] RA Area 4C 77.7 mL [facility] Work Phone: [phone] RV Basal Dimension 4.6 cm [facility] Work Phone: [phone] RV Mid Dimension 3.3 cm [facility] Work Phone: [phone] RVSP 30 mmHg [facility] Work Phone: Sinotubular Junction 3.0 cm [facility] Work Phone: TR Max Velocity 2.72 m/s [employer] [facility] [facility] Work Phone: TR Peak Gradient 30 mmHg [facility] Work Phone: [phone] [facility] Work Phone: Heart Transthoracicon Aortic Valve: [...] on 08-17-2023 Heart rate 109 /min bpm [employer] [facility] Work Phone: Basic metabolic 1998 panelon 08-16-2023 Anion gap [Moles/Vol] 15 mmol/L High 3 - 13 mmol/L [employer] [facility] Calcium [Mass/Vol] 9.1 mg/dL 8.4 - 10. 4 mg/dL [employer] [facility] Chloride [Moles/Vol] 93 mmol/L Low 98 - 10 7 mmol/L [employer] [facility] CO2 [Moles/Vol] 25 mmol/L 22 - 30 mmol/L [employer] [facility] Creatinine [Mass/Vol] 6.01 mg/dL High 0.66 - 1.25 mg/dL [employer] [facility] GFR/1.73 sq M.predicted MDRD (S/P/Bld) [Vol rate/Area] 10.2 mL/min/{1.73_m2} Low - PINF [facility] Comment on above: Calculation based on the Chronic Kidney Disease Epidemiology Collaboration (CKD-EPI) equation refit without adjustment for race Glucose [Mass/Vol] 110 mg/dL High 70 - 100 mg/dL [facility] Interpretation and review of laboratory results Abnormal [facility] Potassium [Moles/Vol] 4.5 mmol/L 3.5 - 5.1 mmol/L [facility] Sodium [Moles/Vol] 133 mmol/L Low 135 - 145 mmol/L [facility] Urea nitrogen [Mass/Vol] 40 mg/dL High 9 - 20 mg/d L [facility] CBC W Auto Differential pane l (Bld)Ordered By: Aric Montejo on 08-16-2023 Basophils (Bld) [#/Vol] 0.1 10*3/uL 0.0 - 0.2 10*3/uL [facility] Basophils/100 WBC (Bld) 1.3 % 0.0 - 2.0 % [facility] Eosinophils (Bld) [#/Vol] 0.5 10*3/uL 0.0 - 0.5 10*3/uL [facility] Eosinophils/100 WBC (Bld) 5.1 % 1.0 - 6.0 % [facility] Erythrocyte distribution width (RBC) [Ratio] 14.7 % High 11.5 - 14.5 % [facility] Hematocrit (Bld) [Volume fraction] 41.6 % 40.0 - 52.0 % [facility] Hemoglobin (Bld) [Mass/Vol] 14.5 g/dL 13.0 - 18.0 g/dL [facility] Interpretation and review of laboratory results Abnormal [facility] Lymphocytes (Bld) [#/Vol] 1.3 10*3/uL 1.0 - 4.3 10*3/uL [facility] Lymphocytes/100 WBC (Bld) 14.2 % Low 20.0 - 40.0 % [facility] MCH (RBC) [Entitic mass] 31.5 pg 26. 0 - 34.0 pg [facility] MCHC (RBC) [Mass/Vol] 34.8 % 32.0 - 36.0 % [facility] MCV (RBC) [Entitic vol] 90.5 fL 80.0 - 98.0 fL [facility] Monocytes (Bld) [#/Vol] 1.3 10*3/uL High 0.0 - 0.8 10*3/uL [facility] Monocytes/100 WBC (Bld) 13.5 % High 2.0 - 10.0 % [facility] Neutrophils (Bld) [#/Vol] 6.2 10*3/uL 1.8 - 7.0 10*3/uL [facility] Neutrophils/100 WBC (Bld) 65.9 % 40.0 - 80.0 % [facility] Nucleated RBC/100 WBC (Bld) [Ratio] 0.1 % [facility] Platelet mean volume (Bld) [Entitic vol] 7.3 fL Low 7.4 - 12.4 fL [facility] Platelets (Bld) [#/Vol] 254 10*3/uL 140 - 440 10*3/uL [facility] RBC (Bld) [#/Vol] 4.60 10*6/uL 4.40 - 5.9 0 10*6/uL [facility] WBC (Bld) [#/Vol] 9.5 10*3/uL 3.6 - 10.7 10*3/uL [facility] Laboratory - Chemistry and C hemistry - challengeon 08-16-2023 Troponin I.cardiac [Mass/Vol] 0.062 ng/mL High [facility] - 0.034 ng/mL [facility] Troponin I.cardiac [Mass/Vol] 0.037 ng/mL High [facility] - 0.034 ng/mL [facility] Troponin I.cardiac [Mass/Vol ]on 08-16-2023 Interpretation and review of laboratory results Abnormal [facility] Patients with high levels of Biotin oral intake (ie >5 mg/day) may have falsely decreased Troponin levels. [facility] Interpretation and review of laboratory results Abnormal [facility] [facility] Patients with high levels of Biotin oral intake (ie >5 mg/day) may have falsely decreased Troponin levels. [facility] XR Chest Single viewon 08-16 1. [...] No apparent pneumothorax. Bony thorax grossly unremarkable. [facility] Justo Milan MD - 08/16/2023 Patient [...] Date/Time: 08/16/2023 6:42 PM EST [facility] Radiology Study observation (narrative) [facility] XR Chest Single viewOrdered By: Justo Milan on 08-16-2023 [facility] Work Phone: POTASSIUM BLDon 12-17-2022 Potassium [Moles/Vol] 7.6 mmol/L Critically high 3.7-5.1 [facility] Comment on above: Order Comment: Speci men Type: BLOOD SPECIMEN Ordering Facility: [facility] Address: , , Performed By: #### K 1 #### [facility] CLIA [id number] 1 [place] [address] [place] POTASSIUM BLDon 08-19-2022 Potassium [Moles/Vol] 7.0 mmol/L Critically high 3.7-5.1 [facility] Comment on above: Order Comment: Dominick richards Type: BLOOD SPECIMEN Ordering Facility: [facility] Address: , , Performed By: #### K 1 #### [facility] CLIA [id number] [address] POTASSIUM BLDon 06-16-2022 Potassium [Moles/Vol] 6.3 mmol/L Critically high 3.7-5.1 [facility] Comment on above: Order Comment: Dominick richards Type: BLOOD SPECIMEN [facility] Address: , , Performed By: #### K 1 #### [facility] CLIA [id number] [address] [facility] Hgb Bld-mCncon 05-12-2022 Hemoglobin (Bld) [Mass/Vol] 8.4 g/dL Low 13.0-17.0 [facility] Comment on above: Order Comment: Dominick richards Type: BLOOD SPECIMEN Ordering Facility: [facility] Address: , , Performed By: #### 7 18-7 #### [facility] CLIA [id number] [address] [facility] XA Special Angiography [facility] 09-15-2021 XA Special Angiography Procedure Patient Name: JUN SNYDER Special Procedures ACCESSION EXAM DATE/TIME PROCEDURE ORDERING PROVIDER [id number] 09/15/2021 11:10 EST XA Special Angiography MD [...] and the needle was removed. A 3 Bahraini dilator was advanced over the wire and [...] after procedure termination. Report Dictated on Workstation: [id number] Final Dictating Physician: MD VICENTE CHRISTOPHER Signed Date and Time: 09/15/2021 12:15 pm Signed by: MD VICENTE CHRISTOPHER Transcribed Date and Time: 09/15/2021 12:16 Normal [facility] IR DIALYSIS INJ W/ANGIOPLAST Yon 11-22-2020 IR DIALYSIS INJ W/ANGIOPLASTY Final Report DATE OF EXAM: Nov 22 2020 2:02PM [facility] 0944 - IR DIALYSIS INJ W/ANGIOPLASTY / [...] This was initially converted to a 6 Bahraini sheath and later converted to a 7 Bahraini sheath. Reflux fistulogram for done in several [...] levels with a 6 x 40 mm Dupree balloon. This gave minimal improvement. We then exchanged the 6 mm balloon for an 8 x 40 mm Dupree balloon. This gave more moderate improvement. At that point we changed the 6 Bahraini sheath to a 7 Bahraini sheath and placed a 9 x 40 [...] site of puncture trauma. With the 7 Bahraini sheath removed pressure was held on the [...] dilation of stenotic lesion as noted above. Doctor'S Assistant: [facility] Transcribe Date/Time: Nov 22 2020 2:07P Dictated by : VINCENT DE LA ROSA MD This examination was interpreted and the report reviewed and electronically signed by: VINCENT DE LA ROSA MD on Nov 22 2020 2:13PM EST Normal [facility] XA SPECIAL ANGIOGRAPHY PROCE [facility] 10-17-2020 Patient Name: GLENN SNYDER Special Procedures ACCESSION EXAM DATE/TIME PROCEDURE ORDERING PROVIDER [id number] 10/17/2020 08:27 EST XA Special Angiography MD [...] KEVIN Transcribed Date and Time: 10/17/2020 1:05 [facility] Incoming Radiology Results From [facility] - 10/17/2020 1:05 PM EST Patient Name: GLENN SNYDER Special Procedures ACCESSION EXAM DATE/TIME PROCEDURE ORDERING PROVIDER [id number] 10/17/2020 08:27 EST XA Special Angiography MD [...] KEVIN Transcribed Date and Time: 10/17/2020 1:05 [facility] [place] XA Special Angiography Proce dure 10-17-2020 XA Special Angiography Procedure Patient Name: GLENN SNYDER Special Procedures ACCESSION EXAM DATE/TIME PROCEDURE ORDERING PROVIDER [id number] 10/17/2020 08:27 EST XA Special Angiography MD [...] Transcribed Date and Time: 10/17/2020 1:05 Normal [facility] Basic Metabolic Panelon 04-27 Anion gap [Moles/Vol] 17 mmol/L Normal 9-18 [facility] Comment on above: Performed By: #### B MP #### [address] [address] Calcium [Mass/Vol] 9.1 mg/dL Normal 8.5-10.2 [facility] Comment on above: Performed By: #### B MP #### [address] [address] Chloride [Moles/Vol] 100 mmol/L Normal 97-105 [facility] Comment on above: Performed By: #### B MP #### [facility] [address] [place], [place] [address] CO2 Blood 18 mmol/L Low 22-30 [facility] Comment on above: Performed By: #### B MP #### [facility] [address] [place], [place] [address] Creatinine [Mass/Vol] 13.39 mg/dL High 0.73-1.22 [facility] Comment on above: Performed By: #### B MP #### [facility] [address] [place], [place] [address] Glucose [Mass/Vol] 83 mg/dL Normal 74-99 [facility] Comment on above: Result Comment: The French Diabetes Association (ADA) provides guidance for cutoff [...] Standards of Medical Care in Diabetes 2016; French Diabetes Association. Diabetes Care. 2016;39(Suppl 1). Performed By: #### B MP #### [facility] [address] [place], [place] [address] Potassium [Moles/Vol] 4.8 mmol/L Normal 3.7-5.1 [facility] Comment on above: Performed By: #### B MP #### [facility] [address] [place], [place] [address] Sodium [Moles/Vol] 135 mmol/L Low 136-144 [facility] Comment on above: Performed By: #### B MP #### [facility] [address] [place], [place] [address] Urea nitrogen [Mass/Vol] 61 mg/dL High 9-24 [facility] Comment on above: Performed By: #### B MP #### [facility] [address] [place] [address] Hemogramon 05-10-2020 Erythrocyte distribution width (RBC) [Ratio] 12.7 % Normal 11.6-14.4 [facility] Comment on above: Performed By: #### C BC1 #### [facility] [address] [place] [address] Hematocrit (Bld) [Volume fraction] 28.4 % Low 40.1-51.0 [facility] Comment on above: Performed By: #### C BC1 #### [facility] [address] [place] [address] Hemoglobin (Bld) [Mass/Vol] 9.2 g/dL Low 13.7-17.5 [facility] Comment on above: Performed By: #### C BC1 #### [facility] [address] [place] [address] MCH (RBC) [Entitic mass] 30.6 pg Normal 25.7-32.2 [facility] Comment on above: Performed By: #### C BC1 #### [facility] [address] [place] [address] MCHC (RBC) [Mass/Vol] 32.4 % Normal 32.3-36.5 [facility] Comment on above: Performed By: #### C BC1 #### [facility] [address] [place] [address] MCV (RBC) [Entitic vol] 94.4 fL Normal 83.2-95.6 [facility] Comment on above: Performed By: #### C BC1 #### [facility] [address] [place] [address] Platelet mean volume (Bld) [Entitic vol] 10.1 fL Normal 8.7-12.0 [facility] Comment on above: Performed By: #### C BC1 #### [facility] [address] [place] [address] Platelets (Bld) [#/Vol] 278 thou/cmm Normal 141-365 [facility] Comment on above: Performed By: #### C BC1 #### [facility] [address] [place], [place] [address] RBC (Bld) [#/Vol] 3.01 mil/cmm Low 4.63-6.08 [facility] Comment on above: Performed By: #### C BC1 #### [facility] [address] [place], [place] [address] RDW SD 43.8 fl Normal 36.1-45.8 [facility] Comment on above: Performed By: #### C BC1 #### [facility] [address] [place], [place] [address] WBC (Bld) [#/Vol] 8.58 thou/cmm Normal 4.23-9.07 [facility] Comment on above: Performed By: #### C BC1 #### [facility] [address] [place], [place] [address] MDRD GFRon 05-10-2020 GFR/1.73 sq M predicted among non-blacks MDRD (S/P/Bld) [Vol rate/Area] 3.89 mL/min/{1.73_m2} Normal >60mL/min/1.7 3m2 [facility] Comment on above: Result Comment: If t he patient is , multiply the result by 1.210. Performed By: #### G FR #### [facility] [address] [place] [id number] Protimeon 05-10-2020 INR Coag (PPP) [Relative time] 0.98 {INR} Normal 0.90-1.30 [facility] Comment on above: Result Comment: Conchita min K Antagonist (VKA) Therapeutic Range: INR 2 to 3 (Target INR of 2.5) Note: For patients treated with VKA drugs, such as warfarin, the [employer] College of [employer]icians 2012 Guideline recommends [...] [phone] Performed By: #### P T #### [address] [address] PT Coag (PPP) [Time] 10.6 s Normal 9.7-13.0 [facility] Comment on above: Performed By: #### P T #### [address] [address] Rapid, COVID 19on 03-20-2020 Rapid, COVID 19 Negative Normal Negative [facility] Comment on above: Result Comment: This test has been authorized by the FDA under an Emergency Use Authorization (EUA). Performed By: #### R COVD #### [place] [address] Basic Metabolic Panelon 02-25 Anion gap [Moles/Vol] 14 mmol/L Normal 9-18 [facility] Comment on above: Performed By: #### B MP #### [place] [address] Calcium [Mass/Vol] 10.0 mg/dL Normal 8.5-10.2 [facility] Comment on above: Performed By: #### B MP #### [place] [address] Chloride [Moles/Vol] 95 mmol/L Low 97-105 [facility] Comment on above: Performed By: #### B MP #### [place] [address] CO2 Blood 26 mmol/L Normal 22-30 [facility] Comment on above: Performed By: #### B MP #### [place] [address] Creatinine [Mass/Vol] 9.29 mg/dL High 0.73-1.22 [facility] Comment on above: Performed By: #### B MP #### [facility] [address] [place], [place] [address] Glucose [Mass/Vol] 84 mg/dL Normal 74-99 [facility] Comment on above: Result Comment: The French Diabetes Association (ADA) provides guidance for cutoff [...] Standards of Medical Care in Diabetes 2016; French Diabetes Association. Diabetes Care. 2016;39(Suppl 1). Performed By: #### B MP #### [address] [address] Potassium [Moles/Vol] 3.7 mmol/L Normal 3.7-5.1 [facility] Comment on above: Performed By: #### B MP #### [facility] [address] [place], [place] [address] Sodium [Moles/Vol] 135 mmol/L Low 136-144 [facility] Comment on above: Performed By: #### B MP #### [address] [address] Urea nitrogen [Mass/Vol] 32 mg/dL High 9-24 [facility] Comment on above: Performed By: #### B MP #### [facility] [address] [place], [place] [address] Hematologyon 03-13-2020 INR Coag (PPP) [Relative time] 0.96 {INR} 0.90 - 1.30 [facility] PT Coag (PPP) [Time] 10.4 s 9.7 - 1 3.0 sec [facility] Hematocrit (Bld) [Volume fraction] 30.6 % Low 40.1 - 51.0 % [facility] Hemoglobin (Bld) [Mass/Vol] 10.8 g/dL Low 13.7 - 17.5 g/dL [facility] MCH (RBC) [Entitic mass] 31.0 pg 25. 7 - 32.2 pg [facility] MCV (RBC) [Entitic vol] 87.9 fL 83.2 - 95.6 fl [facility] Platelets (Bld) [#/Vol] 269 thou/cmm 141 - 365 thou/cmm [facility] RBC (Bld) [#/Vol] 3.48 mil/cmm Low 4.63 - 6.0 8 mil/cmm [facility] WBC (Bld) [#/Vol] 10.79 thou/cmm High 4.23 - 9 .07 thou/cmm [facility] Hemogramon 03-13-2020 Erythrocyte distribution width (RBC) [Ratio] 13.2 % Normal 11.6-14.4 [facility] Comment on above: Performed By: #### C BC1 #### [facility] [address] [place], [place] [address] Hematocrit (Bld) [Volume fraction] 30.6 % Low 40.1-51.0 [facility] Comment on above: Performed By: #### C BC1 #### [facility] [address] [place], [place] [address] Hemoglobin (Bld) [Mass/Vol] 10.8 g/dL Low 13.7-17.5 [facility] Comment on above: Performed By: #### C BC1 #### [facility] [address] [place], [place] [address] MCH (RBC) [Entitic mass] 31.0 pg Normal 25.7-32.2 [facility] Comment on above: Performed By: #### C BC1 #### [facility] [address] [place], [place] [address] MCHC (RBC) [Mass/Vol] 35.3 % Normal 32.3-36.5 [facility] Comment on above: Performed By: #### C BC1 #### [facility] [address] [place], [place] [address] MCV (RBC) [Entitic vol] 87.9 fL Normal 83.2-95.6 [facility] Comment on above: Performed By: #### C BC1 #### [facility] [address] [place], [place] [address] Platelet mean volume (Bld) [Entitic vol] 10.1 fL Normal 8.7-12.0 [facility] Comment on above: Performed By: #### C BC1 #### [facility] [address] [place], [place] [address] Platelets (Bld) [#/Vol] 269 thou/cmm Normal 141-365 [facility] Comment on above: Performed By: #### C BC1 #### [facility] [address] [place], [place] [address] RBC (Bld) [#/Vol] 3.48 mil/cmm Low 4.63-6.08 [facility] Comment on above: Performed By: #### C BC1 #### [facility] [address] [place], [place] [address] RDW SD 42.3 fl Normal 36.1-45.8 [facility] Comment on above: Performed By: #### C BC1 #### [facility] [address] [place], [place] [address] WBC (Bld) [#/Vol] 10.79 thou/cmm High 4.23-9.07 [facility] Comment on above: Performed By: #### C BC1 #### [facility] [address] [place] [id number] MDRD GFRon 03-13-2020 GFR/1.73 sq M predicted among non-blacks MDRD (S/P/Bld) [Vol rate/Area] 5.94 mL/min/{1.73_m2} Normal >60mL/min/1.7 3m2 [facility] Comment on above: Result Comment: If t he patient is , multiply the result by 1.210. Performed By: #### G FR #### [facility] [address] [place] [id number] Metabolic Panelon 03-13-2020 Anion gap [Moles/Vol] 14 mmol/L 9 - 18 mmol/L [facility] Calcium [Mass/Vol] 10.0 mg/dL 8.5 - 10. 2 mg/dL [facility] Chloride [Moles/Vol] 95 mmol/L Low 97 - 10 5 mmol/L [facility] CO2 [Moles/Vol] 26 mmol/L 22 - 30 mmol/L [facility] Creatinine [Mass/Vol] 9.29 mg/dL High 0.73 - 1.22 mg/dL [facility] Glucose [Mass/Vol] 84 mg/dL 74 - 99 mg/dL [facility] Potassium [Moles/Vol] 3.7 mmol/L 3.7 - 5.1 mmol/L [facility] Sodium [Moles/Vol] 135 mmol/L Low 136 - 144 mmol/L [facility] Urea nitrogen [Mass/Vol] 32 mg/dL High 9 - 24 mg/d L [facility] Otheron 03-13-2020 GFR/1.73 sq M.predicted MDRD (S/P/Bld) [Vol rate/Area] 5.94 mL/min/{1.73_m2} >60mL/min/1.7 3m2 [facility] Erythrocyte distribution width (RBC) [Entitic vol] 42.3 fL 36.1 - 45.8 fl [facility] Erythrocyte distribution width (RBC) [Ratio] 13.2 % 11.6 - 14.4 % [facility] MCHC (RBC) [Mass/Vol] 35.3 % 32.3 - 36.5 % [facility] Platelet mean volume (Bld) [Entitic vol] 10.1 fL 8.7 - 12.0 fl [facility] Protimeon 03-13-2020 INR Coag (PPP) [Relative time] 0.96 {INR} Normal 0.90-1.30 [facility] Comment on above: Result Comment: Conchita min K Antagonist (VKA) Therapeutic Range: INR 2 to 3 (Target INR of 2.5) Note: For patients treated with VKA drugs, such as warfarin, the [employer] College of Chest [employer]icians 2012 Guideline recommends [...] Chest 2012; 141:7S-47S Randall PATTON et al. [facility] 2017; 70: 252-289 Performed By: #### P T #### [facility] [address] [place], [place] [address] PT Coag (PPP) [Time] 10.4 s Normal 9.7-13.0 [facility] Comment on above: Performed By: #### P T #### [facility] [address] [place], [place] [address] US VEIN MAPPING UPPER BILon 02-13-2020 US [...] unobstructed. There is no deep venous thrombosis. Doctor'S Assistant: PSCB Transcribe Date/Time: Feb 13 2020 4:27P Dictated by : ANALISA GRANADOS MD This examination was interpreted and the report reviewed and electronically signed by: ANALISA GRANADOS MD on Feb 13 2020 4:30PM EST Normal [facility] Basic Metabolic PanelOrdered By: Darell Sanches on 10-27-2019 Anion gap [Moles/Vol] 18 mmol/L [facility] Work Phone: Calcium [Mass/Vol] 9.2 mg/dL 8.4 - 10. 4 mg/dL [facility] Work Phone: Chloride [Moles/Vol] 93 mmol/L Low 98 - 10 7 mmol/L [facility] Work Phone: CO2 [Moles/Vol] 24 mmol/L 22 - 30 mmol/L [facility] Work Phone: Creatinine [Mass/Vol] 9.99 mg/dL High 0.52 - 1.25 mg/dL [facility] Work Phone: EGFR IF NonAfrican French 5.5 mL/min >60 [facility] Work Phone: Comment on above: Source- MDRD equatio n with creatinine calibration to IDMS(NKDEP) eGFR not recommended for drug dose adjustment GFR/1.73 sq M.predicted among blacks MDRD (S/P/Bld) [Vol rate/Area] 6.6 mL/min/{1.73_m2} >60 [facility] Work Phone: 1 Glucose [Mass/Vol] 103 mg/dL High 70 - 100 mg/dL [facility] Work Phone: 1 Potassium [Moles/Vol] 4.5 mmol/L 3.5 - 5.1 mmol/L [facility] Work Phone: 1 Sodium [Moles/Vol] 135 mmol/L 135 - 145 mmol/L [facility] Work Phone: 1 Urea nitrogen [Mass/Vol] 49 mg/dL High 7 - 20 mg/d L [facility] Work Phone: 1 CBC Auto DifferentialOrdered By: Darell Sanches on 10-27-2019 Absolute Baso # 0.1 10*3/uL 0 - 0.2 10*3/uL [facility] Work Phone: [phone] Absolute Neut # 6.6 10*3/uL 1.8 - 7 10*3/uL [facility] Work Phone: Basophils/100 WBC (Bld) 0.7 % 0 - 2 % [facility] Work Phone: Eosinophils (Bld) [#/Vol] 0.5 10*3/uL 0 - 0.5 10*3/uL [facility] Work Phone: Eosinophils/100 WBC (Bld) 4.9 % 1 - 6 % [facility] Work Phone: Erythrocyte distribution width (RBC) [Ratio] 14.0 % 11.5 - 14.5 % [facility] Work Phone: Granulocytes/100 WBC (Bld) 62.2 % 40 - 80 % [facility] Work Phone: Hematocrit (Bld) [Volume fraction] 28.3 % Low 40 - 52 % [facility] Work Phone: 1 Hemoglobin (Bld) [Mass/Vol] 9.5 g/dL Low 13 - 18 g/dL [facility] Work Phone: Lymphocytes (Bld) [#/Vol] 2.0 10*3/uL 1 - 4.3 10*3/uL [facility] Work Phone: Lymphocytes/100 WBC (Bld) 18.8 % Low 20 - 40 % [email or web address] Work Phone: 1 MCH (RBC) [Entitic mass] 29.1 pg 26 - 34 pg [email or web address] Work Phone: MCHC 33.6 % 32 - 36 % [email or web address] Work Phone: 1 MCV (RBC) [Entitic vol] 86.7 fL 80 - 98 fL [facility] Work Phone: Monocytes (Bld) [#/Vol] 1.4 10*3/uL High 0 - 0.8 10*3/uL [email or web address] Work Phone: 1 Monocytes/100 WBC (Bld) 13.4 % High 2 - 10 % [facility] Work Phone: Platelet mean volume (Bld) [Entitic vol] 8.2 fL 7.4 - 10.4 fL [email or web address] Work Phone: Platelets (Bld) [#/Vol] 259 10*3/uL 140 - 440 10*3/uL [email or web address] Work Phone: RBC (Bld) [#/Vol] 3.27 10*6/uL Low 4.4 - 5.9 10*6/uL [facility] Work Phone: WBC (Bld) [#/Vol] 10.6 10*3/uL 3.6 - 10.7 10*3/uL [email or web address] Work Phone: MAGNESIUMOrdered By: Darell Sanches on 10-27-2019 Magnesium [Mass/Vol] 2.6 mg/dL High 1.6 - 2 .3 mg/dL [email or web address] Work Phone: No Panel InformationOrdered By: Darell Sanches on 10-27-2019 Interpretation and review of laboratory results Abnormal [email or web address] Work Phone: Test Performed by [employer] [address] [address] [facility] Work Phone: PhosphorusOrdered By: Darell Sanches on 10-27-2019 Phosphate [Mass/Vol] 9.9 mg/dL High 2.5 - 4 .5 mg/dL [email or web address] Work Phone: [phone] Basic Metabolic PanelOrdered By: Darell Sanches on 10-26-2019 Anion gap [Moles/Vol] 14 mmol/L [facility] Work Phone: [phone] Calcium [Mass/Vol] 9.0 mg/dL 8.4 - 10. 4 mg/dL [facility] Work Phone: [phone] Chloride [Moles/Vol] 94 mmol/L Low 98 - 10 7 mmol/L [facility] Work Phone: [phone] CO2 [Moles/Vol] 29 mmol/L 22 - 30 mmol/L [facility] Work Phone: [phone] Creatinine [Mass/Vol] 7.06 mg/dL High 0.52 - 1.25 mg/dL [facility] Work Phone: [phone] EGFR IF NonAfrican French 8.2 mL/min >60 [facility] Work Phone: [phone] Comment on above: Source- MDRD equatio n with creatinine calibration to IDMS(NKDEP) eGFR not recommended for drug dose adjustment GFR/1.73 sq M.predicted among blacks MDRD (S/P/Bld) [Vol rate/Area] 9.9 mL/min/{1.73_m2} >60 [facility] Work Phone: [phone] Glucose [Mass/Vol] 95 mg/dL 70 - 100 mg/dL [facility] Work Phone: [phone] Potassium [Moles/Vol] 4.2 mmol/L 3.5 - 5.1 mmol/L [facility] Work Phone: [phone] Sodium [Moles/Vol] 136 mmol/L 135 - 145 mmol/L [facility] Work Phone: [phone] Urea nitrogen [Mass/Vol] 27 mg/dL High 7 - 20 mg/d L [facility] Work Phone: [phone] CBC Auto DifferentialOrdered By: Darell Sanches on 10-26-2019 Absolute Baso # 0.1 10*3/uL 0 - 0.2 10*3/uL [facility] Work Phone: [phone] Absolute Neut # 7.1 10*3/uL High 1.8 - 7 10*3/uL [facility] Work Phone: [phone] Basophils/100 WBC (Bld) 0.8 % 0 - 2 % [facility] [employer] Work Phone: Eosinophils (Bld) [#/Vol] 0.5 10*3/uL 0 - 0.5 10*3/uL [email or web address] Work Phone: [phone] Eosinophils/100 WBC (Bld) 4.7 % 1 - 6 % [email or web address] Work Phone: 1 Erythrocyte distribution width (RBC) [Ratio] 13.9 % 11.5 - 14.5 % [email or web address] Work Phone: [phone] Granulocytes/100 WBC (Bld) 63.9 % 40 - 80 % [facility] Work Phone: Hematocrit (Bld) [Volume fraction] 29.2 % Low 40 - 52 % [facility] Work Phone: [phone] Hemoglobin (Bld) [Mass/Vol] 9.9 g/dL Low 13 - 18 g/dL [facility] Work Phone: Interpretation and review of laboratory results Abnormal [facility] Work Phone: 1 Lymphocytes (Bld) [#/Vol] 2.0 10*3/uL 1 - 4.3 10*3/uL [facility] Work Phone: 1 Lymphocytes/100 WBC (Bld) 17.8 % Low 20 - 40 % [facility] Work Phone: MCH (RBC) [Entitic mass] 29.5 pg 26 - 34 pg [email or web address] Work Phone: 22 MCHC 33.9 % 32 - 36 % [email or web address] Work Phone: MCV (RBC) [Entitic vol] 87.0 fL 80 - 98 fL [facility] Work Phone: Monocytes (Bld) [#/Vol] 1.4 10*3/uL High 0 - 0.8 10*3/uL [email or web address] Work Phone: [phone] Monocytes/100 WBC (Bld) 12.8 % High 2 - 10 % [facility] [employer] [facility] Work Phone: Platelet mean volume (Bld) [Entitic vol] 8.0 fL 7.4 - 10.4 fL [email or web address] Work Phone: 1 Platelets (Bld) [#/Vol] 262 10*3/uL 140 - 440 10*3/uL [email or web address] Work Phone: RBC (Bld) [#/Vol] 3.36 10*6/uL Low 4.4 - 5.9 10*6/uL [facility] Work Phone: WBC (Bld) [#/Vol] 11.0 10*3/uL High 3.6 - 10.7 10*3/uL [email or web address] Work Phone: 1 Test Performed by [employer], [address] [place] [address] [facility] Work Phone: 1 Culture Blood #1Ordered By: Brett Encarnacion on 10-26-2019 Blood Culture, Routine [employer] testing is not routinely performed on Gram positive bacilli. If a Listeria infection is highly suspected, contact the Microbiology laboratory [phone]). Abnormal [facility] Work Phone: 1 Blood Culture, Routine Propionibacterium acnes Abnormal [facility] Work Phone: 1 Blood Culture, Routine Isolated: Contamination likely unless additional blood culture sets are found to be positive with the same organism. [facility] Work Phone: Interpretation and review of laboratory results Abnormal [facility] Work Phone: 1 Test Performed by [employer], [address] [place] [id number] Specimen Source Comment:Blood [facility] Work Phone: MAGNESIUMOrdered By: Darell Sanches on 10-26-2019 Magnesium [Mass/Vol] 2.2 mg/dL 1.6 - 2 .3 mg/dL [facility] Work Phone: 1 No Panel InformationOrdered By: Darell Sanches on 10-26-2019 Interpretation and review of laboratory results Abnormal [facility] Work Phone: 1 Test Performed by [employer], [address] [place], [place] [id number] [place], [place] [email or web address] Work Phone: PhosphorusOrdered By: aDrell Sanches on 10-26-2019 Phosphate [Mass/Vol] 7.1 mg/dL High 2.5 - 4 .5 mg/dL [facility] Work Phone: US BIOPSY RENAL RIGHT PERCOr dered By: Cindy Patel on 10-26-2019 Patient Name: GLENN SNYDER ---Ultrasound--- Exam Date/Time 10/26/2019 10:57:27 EST Exam US Biopsy Renal Right Ordering Physician MD DA, CINDY [place] Accession Number [id number] CPT4 Codes 80085 (), 73304 () Reason For Exam renal failure Report ULTRASOUND GUIDED RIGHT LOWER POLE KIDNEY BIOPSY Reasons for examination: Acute renal failure. After review of prior studies, patient interview and examination, the risks, benefits, and alternatives of the biopsy procedure were discussed, informed consent was obtained. 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 After review of prior studies, patient interview and examination, the risks, benefits, and alternatives of the biopsy procedure were discussed, informed consent was obtained. 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 US scans of the right kidney [...] DARELL MCCLOUD Signed Date and Time: 10/26/2019 12:04 pm Signed by: MD ROTEGA GEORGE RICHARD Transcribed Date and Time: 10/26/2019 12:05 [facility] Work Phone: XA SPECIAL ANGIOGRAPHY PROCE DUREOrdered By: Jeana Pedraza on 10-26-2019 Patient Name: GLENN SNYDER ---Special Procedures--- Exam Date/Time 10/26/2019 15:01:32 EST Exam XA Special Angiography Procedure Ordering Physician MD KEILA, JEANA Accession Number [id number] Reason For Exam non tunneled to tunneled cath Report FLUOROSCOPIC AND ULTRASOUND-GUIDED TUNNELED DIALYSIS CATHETER PLACEMENT REMOVAL OF RIGHT INTERNAL JUGULAR TEMPORARY HEMODIALYSIS CATHETER 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 Fluoroscopy time: Acute renal [...] Phone: Mike, [facility] Incoming Radiology Results From [facility] - 10/26/2019 3:29 PM EST Patient Name: GLENN SNYDER ---Special Procedures--- Exam Date/Time 10/26/2019 15:01:32 EST Exam XA Special Angiography Procedure Ordering Physician MD KEILA, [facility] Accession Number [id number] Reason For Exam non tunneled to tunneled cath Report FLUOROSCOPIC AND ULTRASOUND-GUIDED TUNNELED DIALYSIS CATHETER PLACEMENT REMOVAL OF RIGHT INTERNAL JUGULAR TEMPORARY HEMODIALYSIS CATHETER CLINICAL HISTORY: Need for detention central venous access Fluoroscopy time: Acute renal [...] RICHARD Transcribed Date and Time: 10/26/2019 3:28 [facility] Work Phone: Basic Metabolic PanelOrdered By: Darell Sanches on 10-25-2019 Anion gap [Moles/Vol] 15 mmol/L [facility] Work Phone: Calcium [Mass/Vol] 8.7 mg/dL 8.4 - 10. 4 mg/dL [facility] Work Phone: Chloride [Moles/Vol] 95 mmol/L Low 98 - 10 7 mmol/L [facility] Work Phone: CO2 [Moles/Vol] 26 mmol/L 22 - 30 mmol/L [facility] Work Phone: [phone] Creatinine [Mass/Vol] 9.71 mg/dL High 0.52 - 1.25 mg/dL [email or web address] Work Phone: [phone] IF NonAfrican French 5.7 mL/min >60 [email or web address] Work Phone: [phone] Comment on above: Source- MDRD equatio n with creatinine calibration to IDMS(NKDEP) eGFR not recommended for drug dose adjustment GFR/1.73 sq M.predicted among blacks MDRD (S/P/Bld) [Vol rate/Area] 6.9 mL/min/{1.73_m2} >60 [facility] Work Phone: [phone] Glucose [Mass/Vol] 96 mg/dL 70 - 100 mg/dL [email or web address] Work Phone: [phone] Potassium [Moles/Vol] 4.3 mmol/L 3.5 - 5.1 mmol/L [email or web address] Work Phone: [phone] Sodium [Moles/Vol] 135 mmol/L 135 - 145 mmol/L [email or web address] Work Phone: [phone] Urea nitrogen [Mass/Vol] 39 mg/dL High 7 - 20 mg/d L [email or web address] Work Phone: [phone] Auto DifferentialOrdered By: Darell Sanches on 10-25-2019 Absolute Baso # 0.1 10*3/uL 0 - 0.2 10*3/uL [email or web address] Work Phone: [phone] Absolute Neut # 6.7 10*3/uL 1.8 - 7 10*3/uL [email or web address] Work Phone: Basophils/100 WBC (Bld) 0.9 % 0 - 2 % [facility] Work Phone: [phone] Eosinophils (Bld) [#/Vol] 0.5 10*3/uL 0 - 0.5 10*3/uL [email or web address] Work Phone: Eosinophils/100 WBC (Bld) 4.5 % 1 - 6 % [email or web address] Work Phone: [phone] Erythrocyte distribution width (RBC) [Ratio] 13.8 % 11.5 - 14.5 % [facility] Work Phone: Granulocytes/100 WBC (Bld) 60.1 % 40 - 80 % [facility] Work Phone: 1 Hematocrit (Bld) [Volume fraction] 28.3 % Low 40 - 52 % [facility] Work Phone: 1 Hemoglobin (Bld) [Mass/Vol] 9.7 g/dL Low 13 - 18 g/dL [facility] Work Phone: 1 Interpretation and review of laboratory results Abnormal [facility] Work Phone: 1 Lymphocytes (Bld) [#/Vol] 2.6 10*3/uL 1 - 4.3 10*3/uL [facility] Work Phone: 1 Lymphocytes/100 WBC (Bld) 22.9 % 20 - 40 % [facility] Work Phone: 1 MCH (RBC) [Entitic mass] 30.0 pg 26 - 34 pg [facility] Work Phone: 1 MCHC 34.3 % 32 - 36 % [facility] Work Phone: 1 MCV (RBC) [Entitic vol] 87.3 fL 80 - 98 fL [facility] Work Phone: 1 Monocytes (Bld) [#/Vol] 1.3 10*3/uL High 0 - 0.8 10*3/uL [facility] Work Phone: 1 Monocytes/100 WBC (Bld) 11.6 % High 2 - 10 % [facility] Work Phone: 1 Platelet mean volume (Bld) [Entitic vol] 8.1 fL 7.4 - 10.4 fL [facility] Work Phone: 1 22 Platelets (Bld) [#/Vol] 252 10*3/uL 140 - 440 10*3/uL [facility] Work Phone: 1 22 RBC (Bld) [#/Vol] 3.24 10*6/uL Low 4.4 - 5.9 10*6/uL [facility] Work Phone: 1 WBC (Bld) [#/Vol] 11.2 10*3/uL High 3.6 - 10.7 10*3/uL [facility] Work Phone: 1 Test Performed by [employer], [address] [place], [place] [id number] [place], [place] [address]A Work Phone: 1 MAGNESIUMOrdered By: Darell Sanches on 10-25-2019 Magnesium [Mass/Vol] 2.2 mg/dL 1.6 - 2 .3 mg/dL [facility] Work Phone: 1 No Panel InformationOrdered By: Darell Sanches on 10-25-2019 Interpretation and review of laboratory results Abnormal [facility] Work Phone: 1 Test Performed by [employer], [address] [place], [place] [id number] [place], [place] [address]A Work Phone: 1 PhosphorusOrdered By: Darell Sanches on 10-25-2019 Phosphate [Mass/Vol] 9.3 mg/dL High 2.5 - 4 .5 mg/dL [facility] Work Phone: 1 APTTOrdered By: Cindy Patel on 10-24-2019 aPTT Coag (phoebe) [Time] 28.5 s 20 - 30.5 s S [facility] Work Phone: Comment on above: NOTE: The therapeuti c time for Heparin anticoagulation, based on Xa activity inhibition, is an APTT of 46-80 seconds. Basic Metabolic PanelOrdered By: Darell Sanches on 10-24-2019 Anion gap [Moles/Vol] 10 mmol/L [facility] Work Phone: 1 Calcium [Mass/Vol] 8.6 mg/dL 8.4 - 10. 4 mg/dL [facility] Work Phone: Chloride [Moles/Vol] 94 mmol/L Low 98 - 10 7 mmol/L [facility] Work Phone: CO2 [Moles/Vol] 31 mmol/L High 22 - 30 mmol/L [facility] Work Phone: Creatinine [Mass/Vol] 7.11 mg/dL High 0.52 - 1.25 mg/dL [facility] Work Phone: 1 EGFR IF NonAfrican French 8.1 mL/min >60 [facility] Work Phone: Comment on above: Source- [...] [Moles/Vol] 135 mmol/L 135 - 145 mmol/L [facility] Work Phone: Urea nitrogen [Mass/Vol] 28 mg/dL High 7 - 20 mg/d L [email or web address] Work Phone: CBC Auto DifferentialOrdered By: Darell Sanches on 10-24-2019 Absolute Baso # 0.1 10*3/uL 0 - 0.2 10*3/uL [facility] Work Phone: Absolute Neut # 6.2 10*3/uL 1.8 - 7 10*3/uL [email or web address] Work Phone: Basophils/100 WBC (Bld) 0.7 % 0 - 2 % [facility] Work Phone: Eosinophils (Bld) [#/Vol] 0.4 10*3/uL 0 - 0.5 10*3/uL [facility] Work Phone: 22 Eosinophils/100 WBC (Bld) 3.7 % 1 - 6 % [facility] Work Phone: Erythrocyte distribution width (RBC) [Ratio] 14.0 % 11.5 - 14.5 % [facility] Work Phone: Granulocytes/100 WBC (Bld) 63.8 % 40 - 80 % [facility] Work Phone: Hematocrit (Bld) [Volume fraction] 27.0 % Low 40 - 52 % [facility] Work Phone: Hemoglobin (Bld) [Mass/Vol] 9.2 g/dL Low 13 - 18 g/dL [facility] Work Phone: 1 Interpretation and review of laboratory results Abnormal [facility] Work Phone: 1 Lymphocytes (Bld) [#/Vol] 1.8 10*3/uL 1 - 4.3 10*3/uL [facility] Work Phone: 1 Lymphocytes/100 WBC (Bld) 18.8 % Low 20 - 40 % [facility] Work Phone: MCH (RBC) [Entitic mass] 29.6 pg 26 - 34 pg [facility] Work Phone: 1 MCHC 34.1 % 32 - 36 % [facility] Work Phone: 1 MCV (RBC) [Entitic vol] 86.9 fL 80 - 98 fL [facility] [employer] [facility] Work Phone: Monocytes (Bld) [#/Vol] 1.3 10*3/uL High 0 - 0.8 10*3/uL [facility] Work Phone: Monocytes/100 WBC (Bld) 13.0 % High 2 - 10 % [facility] [employer] [facility] Work Phone: 1 Platelet mean volume (Bld) [Entitic vol] 8.4 fL 7.4 - 10.4 fL [facility] Work Phone: Platelets (Bld) [#/Vol] 245 10*3/uL 140 - 440 10*3/uL [facility] Work Phone: RBC (Bld) [#/Vol] 3.10 10*6/uL Low 4.4 - 5.9 10*6/uL [facility] Work Phone: WBC (Bld) [#/Vol] 9.7 10*3/uL 3.6 - 10.7 10*3/uL [facility] Work Phone: Culture Blood #1Ordered By: Brett Encarnacion on 10-24-2019 Blood Culture, Routine No growth at 5 days. [facility] Work Phone: 1 Test Performed by [employer], [address] [place] [id number] Specimen Source Comment:Blood [facility] Work Phone: 1 Glomerular Basement Membrane (GBM) Antibody IgGOrdered By: Randolph Liz on 10-24-2019 GBM Ab, IgG (IFA) Negative Negative NA [email or web address] Work Phone: Comment on above: INTERPRETIVE INFORMA [...] biopsy. Test developed and characteristics determined by [employer]. See Compliance Statement D: [employer] Performed by [employer], [address] [place] [id number] [email or web address], Malvin Slade MD, Lab. Director MAGNESIUMOrdered By: Darell Sanches on 10-24-2019 Magnesium [Mass/Vol] 2.1 mg/dL 1.6 - 2 .3 mg/dL [email or web address] Work Phone: No Panel InformationOrdered By: Darell Sanches on 10-24-2019 Interpretation and review of laboratory results Abnormal [facility] Work Phone: Test Performed by [facility], [address] [place] [address] [place], [place] [id number] [place], [place] [address]A Work Phone: Test Performed by [facility], [address] [place] [address] [place], [place] [id number] [place], [place] [address]A Work Phone: PhosphorusOrdered By: Darell Sanches on 10-24-2019 Phosphate [Mass/Vol] 5.8 mg/dL High 2.5 - 4 .5 mg/dL [email or web address] Work Phone: Protime-INROrdered By: Darren Patel on 10-24-2019 INR Coag (PPP) [Relative time] 1.1 {INR} [email or web address] Work Phone: Comment on above: Recommended Anticoag [...] - 12 s [facility] Work Phone: [phone] Comment on above: . Basic Metabolic PanelOrdered By: Darell Sanches on 10-23-2019 Anion gap [Moles/Vol] 17 mmol/L [facility] Work Phone: [phone] Calcium [Mass/Vol] 8.6 mg/dL 8.4 - 10. 4 mg/dL [facility] Work Phone: [phone] Chloride [Moles/Vol] 94 mmol/L Low 98 - 10 7 mmol/L [facility] Work Phone: [phone] CO2 [Moles/Vol] 24 mmol/L 22 - 30 mmol/L [facility] Work Phone: [phone] Creatinine [Mass/Vol] 11.03 mg/dL High 0.52 - 1.25 mg/dL [facility] Work Phone: [phone] EGFR IF NonAfrican French 4.9 mL/min >60 [facility] Work Phone: [phone] Comment on above: Source- MDRD equatio n [...] 135 - 145 mmol/L [facility] Work Phone: [phone] Urea nitrogen [Mass/Vol] 61 mg/dL High 7 - 20 mg/d L [facility] Work Phone: [phone] CBC Auto DifferentialOrdered By: Darell Sanches on 10-23-2019 Absolute Baso # 0.1 10*3/uL 0 - 0.2 10*3/uL [email or web address] Work Phone: [phone] Absolute Neut # 7.1 10*3/uL High 1.8 - 7 10*3/uL [email or web address] Work Phone: [phone] Basophils/100 WBC (Bld) 1.0 % 0 - 2 % [facility] [employer] Work Phone: Eosinophils (Bld) [#/Vol] 0.5 10*3/uL 0 - 0.5 10*3/uL [email or web address] Work Phone: Eosinophils/100 WBC (Bld) 4.7 % 1 - 6 % [email or web address] Work Phone: Erythrocyte distribution width (RBC) [Ratio] 13.8 % 11.5 - 14.5 % [email or web address] Work Phone: Granulocytes/100 WBC (Bld) 65.3 % 40 - 80 % [email or web address] Work Phone: Hematocrit (Bld) [Volume fraction] 27.6 % Low 40 - 52 % [email or web address] Work Phone: Hemoglobin (Bld) [Mass/Vol] 9.5 g/dL Low 13 - 18 g/dL [email or web address] Work Phone: [phone] Interpretation and review of laboratory results Abnormal [email or web address] Work Phone: Lymphocytes (Bld) [#/Vol] 1.9 10*3/uL 1 - 4.3 10*3/uL [email or web address] Work Phone: Lymphocytes/100 WBC (Bld) 17.3 % Low 20 - 40 % [email or web address] Work Phone: MCH (RBC) [Entitic mass] 29.7 pg 26 - 34 pg [email or web address] Work Phone: MCHC 34.3 % 32 - 36 % [facility] Work Phone: [phone] MCV (RBC) [Entitic vol] 86.6 fL 80 - 98 fL S [facility] Work Phone: Monocytes (Bld) [#/Vol] 1.3 10*3/uL High 0 - 0.8 10*3/uL [facility] Work Phone: 1 Monocytes/100 WBC (Bld) 11.7 % High 2 - 10 % [facility] Work Phone: Platelet mean volume (Bld) [Entitic vol] 7.7 fL 7.4 - 10.4 fL [facility] Work Phone: Platelets (Bld) [#/Vol] 248 10*3/uL 140 - 440 10*3/uL [facility] Work Phone: RBC (Bld) [#/Vol] 3.18 10*6/uL Low 4.4 - 5.9 10*6/uL [facility] Work Phone: WBC (Bld) [#/Vol] 10.8 10*3/uL High 3.6 - 10.7 10*3/uL [facility] Work Phone: [facility], [address] [place] [address] Work Phone: MAGNESIUMOrdered By: Darell Sanches on 10-23-2019 Magnesium [Mass/Vol] 2.1 mg/dL 1.6 - 2 .3 mg/dL [facility] Work Phone: No Panel InformationOrdered By: Darell Sanches on 10-23-2019 Interpretation and review of laboratory results Abnormal [facility] Work Phone: Test Performed by [employer], [address] [place] [address] Work Phone: PhosphorusOrdered By: Darell Sanches on 10-23-2019 Phosphate [Mass/Vol] 9.5 mg/dL High 2.5 - 4 .5 mg/dL [facility] Work Phone: Basic Metabolic PanelOrdered By: Delon Jessica on 10-22-2019 Anion gap [Moles/Vol] 14 mmol/L [facility] Work Phone: Calcium [Mass/Vol] 8.9 mg/dL 8.4 - 10. 4 mg/dL [facility] Work Phone: [phone] Chloride [Moles/Vol] 95 mmol/L Low 98 - 10 7 mmol/L [facility] Work Phone: [phone] CO2 [Moles/Vol] 28 mmol/L 22 - 30 mmol/L [facility] Work Phone: [phone] Creatinine [Mass/Vol] 8.75 mg/dL High 0.52 - 1.25 mg/dL [facility] Work Phone: [phone] IF NonAfrican French 6.4 mL/min >60 [facility] Work Phone: [phone] Comment on above: Source- MDRD equatio n with creatinine calibration to IDMS(NKDEP) eGFR not recommended for drug dose adjustment GFR/1.73 sq M.predicted among blacks MDRD (S/P/Bld) [Vol rate/Area] 7.7 mL/min/{1.73_m2} >60 [facility] Work Phone: [phone] [Mass/Vol] 94 mg/dL 70 - 100 mg/dL [facility] Work Phone: [phone] Potassium [Moles/Vol] 4.3 mmol/L 3.5 - 5.1 mmol/L [facility] Work Phone: [phone] Sodium [Moles/Vol] 137 mmol/L 135 - 145 mmol/L [facility] Work Phone: [phone] Urea nitrogen [Mass/Vol] 53 mg/dL High 7 - 20 mg/d L [email or web address] Work Phone: [phone] Auto DifferentialOrdered By: Delon Jessica on 10-22-2019 Absolute Baso # 0.1 10*3/uL 0 - 0.2 10*3/uL [facility] Work Phone: [phone] Absolute Neut # 5.9 10*3/uL 1.8 - 7 10*3/uL [email or web address] Work Phone: [phone] Basophils/100 WBC (Bld) 0.9 % 0 - 2 % [facility] Work Phone: [phone] Eosinophils (Bld) [#/Vol] 0.3 10*3/uL 0 - 0.5 10*3/uL [facility] Work Phone: [phone] Eosinophils/100 WBC (Bld) 3.0 % 1 - 6 % [email or web address] Work Phone: [phone] 22 Erythrocyte distribution width (RBC) [Ratio] 14.2 % 11.5 - 14.5 % [facility] Work Phone: 1 22 Granulocytes/100 WBC (Bld) 63.0 % 40 - 80 % [facility] Work Phone: 1 Hematocrit (Bld) [Volume fraction] 27.7 % Low 40 - 52 % [facility] Work Phone: 1 Hemoglobin (Bld) [Mass/Vol] 9.4 g/dL Low 13 - 18 g/dL [facility] Work Phone: Interpretation and review of laboratory results Abnormal [facility] Work Phone: Lymphocytes (Bld) [#/Vol] 1.6 10*3/uL 1 - 4.3 10*3/uL [facility] Work Phone: 22 Lymphocytes/100 WBC (Bld) 17.2 % Low 20 - 40 % [facility] Work Phone: 1 MCH (RBC) [Entitic mass] 29.3 pg 26 - 34 pg [facility] Work Phone: MCHC 33.8 % 32 - 36 % [facility] Work Phone: MCV (RBC) [Entitic vol] 86.7 fL 80 - 98 fL [facility] [employer] [facility] Work Phone: Monocytes (Bld) [#/Vol] 1.5 10*3/uL High 0 - 0.8 10*3/uL [facility] Work Phone: 1 22 Monocytes/100 WBC (Bld) 15.9 % High 2 - 10 % [facility] Work Phone: Platelet mean volume (Bld) [Entitic vol] 8.0 fL 7.4 - 10.4 fL [facility] Work Phone: 1 22 Platelets (Bld) [#/Vol] 264 10*3/uL 140 - 440 10*3/uL [facility] Work Phone: 22 RBC (Bld) [#/Vol] 3.20 10*6/uL Low 4.4 - 5.9 10*6/uL [email or web address] Work Phone: 1 WBC (Bld) [#/Vol] 9.3 10*3/uL 3.6 - 10.7 10*3/uL [facility] Work Phone: 1 Test Performed by [employer], [facility] [address] [place] [address] [email or web address] Work Phone: Calcium, IonizedOrdered By: Delon Jessica on 10-22-2019 Interpretation and review of laboratory results Abnormal [email or web address] Work Phone: Ionized Ca 4.20 mg/dL Low 4.3 - 5.2 mg/dL [email or web address] Work Phone: 1 pH (Bld) 7.43 [pH] [email or web address] Work Phone: 1 Test Performed by [employer], [facility] [address] [place] [address] [email or web address] Work Phone: FOLATEOrdered By: Earlene you on 10-22-2019 Folate 9.2 ng/mL 2.8 - 20 ng/mL [email or web address] Work Phone: Glomerular Basement Membrane (GBM) Antibody IgGOrdered By: Jeana Pedraza on 10-22-2019 GBM Ab, IgG (IFA) Negative Negative NA [facility] Work Phone: Comment on above: INTERPRETIVE INFORMA [...] biopsy. Test developed and characteristics determined by [employer] [facility]. See Compliance Statement D: [employer] Performed by [facility], [address] [place] [address] [email or web address], Malvin Slade MD, Lab. Director Iron and TIBCOrdered By: Al Irving on 10-22-2019 Interpretation and review of laboratory results Abnormal [facility] Work Phone: 1 Iron [Mass/Vol] 64 ug/dL 49 - 181 ug/dL [facility] Work Phone: 1 Sat 27 % 15 - 50 % [facility] Work Phone: TIBC 234 ug/dL Low 261 - 497 ug/dL [facility] Work Phone: 1 Test Performed by [employer], [address] [place] [address] [facility] Work Phone: MagnesiumOrdered By: Delon Jessica on 10-22-2019 Magnesium [Mass/Vol] 2.0 mg/dL 1.6 - 2 .3 mg/dL [facility] Work Phone: 1 No Panel InformationOrdered By: Earlene Irving on 10-22-2019 Test Performed by [facility], [address] [place] [address] [facility] Work Phone: No Panel InformationOrdered By: Delon Jessica on 10-22-2019 Interpretation and review of laboratory results Abnormal [facility] Work [facility]: 1 Test Performed by [employer] [facility], [address] [place] [address] [facility] Work Phone: PhosphorusOrdered By: Patrick Jessica on 10-22-2019 Phosphate [Mass/Vol] 8.7 mg/dL High 2.5 - 4 .5 mg/dL [facility] Work Phone: T4, FREEOrdered By: Earlene toure on 10-22-2019 Free T4 [Mass/Vol] 1.16 ng/dL 0.78 - 2. 19 ng/dL [facility] Work Phone: Test Performed by [employer], [address] [place] [address] [facility] Work Phone: TSH without ReflexOrdered By : Earelne Irving on 10-22-2019 TSH 0.836 u[IU]/mL 0.465 - 4.68 u[IU]/mL [facility] Work Phone: Test Performed by [employer], [address] [place], [place] [address] [facility] Work Phone: RENAL ARTERIAL DUPLEX COM PLETEOrdered By: Brett Encarnacion on 10-22-2019 [facility] Renal Artery Duplex Ordering Physician: Brett Encarnacion Nutrition Helper: Laura Walsh Interpreting Physician: Luciano Shannon Location: [facility] Indications: Hypertension. Smoking history. Acute Kidney [...] supine position. Images were obtained using a [employer]QO E9 vascular ultrasound machine. The abdominal aorta, [...] + Kidney le (more content not included)... [facility] Work Phone: Mike, [facility] Incoming Cardiology Results From Tia/[facility]abel - 10/22/2019 3:01 PM EST [facility] Renal Artery Duplex Ordering Physician: Brett Encarnacion Nutrition Helper: Laura Walsh Interpreting Physician: Luciano Shannon Location: [facility] Indications: Hypertension. Smoking history. Acute Kidney [...] supine position. Images were obtained using a [employer] E9 vascular ultrasound machine. The abdominal aorta, [...] electronically signed by Luciano Shannon 10/22/2019 15:01 [email or web address] Work Phone: [phone] Vitamin [id number] By: Akin Irving on 10-22-2019 Cobalamin (Vitamin B12) [Mass/Vol] 959 pg/mL High 239 - 931 pg/mL [email or web address] Work Phone: [phone] Interpretation and review of laboratory results Abnormal [email or web address] Work Phone: [phone] Basic Metabolic PanelOrdered By: Delon Jessica on 10-21-2019 Anion gap [Moles/Vol] 16 mmol/L [facility] Work Phone: [phone] Calcium [Mass/Vol] 8.7 mg/dL 8.4 - 10. 4 mg/dL [facility] Work Phone: [phone] Chloride [Moles/Vol] 94 mmol/L Low 98 - 10 7 mmol/L [email or web address] Work Phone: [phone] CO2 [Moles/Vol] 25 mmol/L 22 - 30 mmol/L [facility] Work Phone: [phone] Creatinine [Mass/Vol] 11.16 mg/dL High 0.52 - 1.25 mg/dL [email or web address] Work Phone: [phone] EGFR IF NonAfrican French 4.8 mL/min >60 [facility] Work Phone: [phone] Comment on above: Source- MDRD equatio n with creatinine calibration to IDMS(NKDEP) eGFR not recommended for drug dose adjustment GFR/1.73 sq M.predicted among blacks MDRD (S/P/Bld) [Vol rate/Area] 5.8 mL/min/{1.73_m2} >60 [email or web address] Work Phone: [phone] Glucose [Mass/Vol] 103 mg/dL High 70 - 100 mg/dL [facility] Work Phone: Potassium [Moles/Vol] 4.9 mmol/L 3.5 - 5.1 mmol/L [email or web address] Work Phone: Sodium [Moles/Vol] 135 mmol/L 135 - 145 mmol/L [email or web address] Work Phone: [phone] Urea nitrogen [Mass/Vol] 83 mg/dL High 7 - 20 mg/d L [email or web address] Work Phone: [phone] CBC Auto DifferentialOrdered By: Delon Jessica on 10-21-2019 Absolute Baso # 0.1 10*3/uL 0 - 0.2 10*3/uL [email or web address] Work Phone: [phone] Absolute Neut # 6.4 10*3/uL 1.8 - 7 10*3/uL [email or web address] Work Phone: [phone] Basophils/100 WBC (Bld) 0.9 % 0 - 2 % [facility] Work Phone: [phone] Eosinophils (Bld) [#/Vol] 0.2 10*3/uL 0 - 0.5 10*3/uL [email or web address] Work Phone: [phone] Eosinophils/100 WBC (Bld) 2.5 % 1 - 6 % [email or web address] Work Phone: Erythrocyte distribution width (RBC) [Ratio] 14.8 % High 11.5 - 14.5 % [email or web address] Work Phone: [phone] Granulocytes/100 WBC (Bld) 64.7 % 40 - 80 % [email or web address] Work Phone: [phone] Hematocrit (Bld) [Volume fraction] 27.6 % Low 40 - 52 % [email or web address] Work Phone: [phone] Hemoglobin (Bld) [Mass/Vol] 9.7 g/dL Low 13 - 18 g/dL [email or web address] Work Phone: [phone] Comment on above: Post Transfusion Interpretation and review of laboratory results Abnormal [facility] Work Phone: 1 Lymphocytes (Bld) [#/Vol] 1.8 10*3/uL 1 - 4.3 10*3/uL [email or web address] Work Phone: 1 Lymphocytes/100 WBC (Bld) 18.5 % Low 20 - 40 % [email or web address] Work Phone: 1 MCH (RBC) [Entitic mass] 30.0 pg 26 - 34 pg [email or web address] Work Phone: 1 MCHC 35.3 % 32 - 36 % [email or web address] Work Phone: 1 MCV (RBC) [Entitic vol] 84.8 fL 80 - 98 fL [facility] Work Phone: 1 Monocytes (Bld) [#/Vol] 1.3 10*3/uL High 0 - 0.8 10*3/uL [email or web address] Work Phone: 1) Monocytes/100 WBC (Bld) 13.4 % High 2 - 10 % [facility] Work Phone: 1 Platelet mean volume (Bld) [Entitic vol] 7.8 fL 7.4 - 10.4 fL [email or web address] Work Phone: 1) Platelets (Bld) [#/Vol] 299 10*3/uL 140 - 440 10*3/uL [email or web address] Work Phone: 1 RBC (Bld) [#/Vol] 3.25 10*6/uL Low 4.4 - 5.9 10*6/uL [facility]: 1 WBC (Bld) [#/Vol] 9.8 10*3/uL 3.6 - 10.7 10*3/uL [facility] Work Phone: 1 Test Performed by [facility] [address] [facility] Work Phone: 1 Calcium, IonizedOrdered By: Delon Jessica on 10-21-2019 Interpretation and review of laboratory results Abnormal [facility] Work Phone: 1 Ionized Ca 4.10 mg/dL Low 4.3 - 5.2 mg/dL [email or web address] Work Phone: [phone] pH (Bld) 7.41 [pH] [facility] Work Phone: Test Performed by [facility], [address] [place] [address] [email or web address] Work Phone: 1 MagnesiumOrdered By: Delon Jessica on 10-21-2019 Magnesium [Mass/Vol] 1.9 mg/dL 1.6 - 2 .3 mg/dL [email or web address] Work Phone: [phone] Panel InformationOrdered By: Delon Jessica on 10-21-2019 Interpretation and review of laboratory results Abnormal [facility] Work Phone: [phone] Test Performed by [facility], [address] [address] [email or web address] Work Phone: [phone] PERIPHERAL BLOOD SMEAR, PATH REVIEWOrdered By: Jeana Pedraza on 10-21-2019 Peripheral Smear see below [email or web address] Work Phone: [phone] Comment on above: See report under Fredy gical Pathology. Test Performed by [facility] [employer], [address] [place] [address] [address] [place] [address] [email or web address] Work Phone: [phone] PhosphorusOrdered By: Patrick Jessica on 10-21-2019 Phosphate [Mass/Vol] 9.2 mg/dL High 2.5 - 4 .5 mg/dL [email or web address] Work Phone: [phone] RETROPERITONEAL COMPLETEO rdered By: Randolph Liz on 10-21-2019 Patient Name: GLENN SNYDER ---Ultrasound--- Exam Date/Time 10/21/2019 15:32:01 EST Exam US Retroperitoneal Complete Ordering Physician 59RANDOLPH JEREZ Accession Number [id number] CPT4 Codes 09417 () Reason For Exam blossom Report US [...] Phone: Mike, [facility] Incoming Radiology Results From [facility] - 10/21/2019 7:32 PM EST Patient Name: GLENN SNYDER ---Ultrasound--- Exam Date/Time 10/21/2019 15:32:01 EST Exam US Retroperitoneal Complete Ordering Physician RANDOLPH PALAFOX Accession Number [id number] CPT4 Codes 28859 () Reason For Exam blossom Report US [...] Ordering Physician MD ENCARNACION MATTHEW Accession Number [id number] CPT4 Codes 96268 () Reason For Exam vomiting Report ABDOMEN [...] Phone: Mike, [facility] Incoming Radiology Results From [facility] - 10/21/2019 6:30 PM EST Patient Name: GLENN SNYDER ---Diagnostic Radiology--- Exam Date/Time 10/21/2019 18:02:19 EST Exam CR Abdomen AP Ordering Physician MD ENCARNACION MATTHEW Accession Number [id number] CPT4 Codes 42103 () Reason For Exam vomiting Report ABDOMEN [...] on 10-20-2019 CIARAN TITER <1:40 <1:40 {titer} [email or web address] Work Phone: Test Performed by [facility] [place] [address] [email or web address] Work Phone: Anti-Neutrophilic Cytoplasmi c AntibodyOrdered By: Jeana Pedraza on 10-20-2019 C-ANCA Not detected Not-Detected {titer} [email or web address] Work Phone: p-ANCA Titer Not detected Not-Detected {titer} [email or web address] Work Phone: Test Performed by [facility] [place] [address] [employer] Work Phone: Basic Metabolic PanelOrdered By: Brett Encarnacion on 10-20-2019 Anion gap [Moles/Vol] 15 mmol/L [facility] Work Phone: Calcium [Mass/Vol] 8.4 mg/dL 8.4 - 10. 4 mg/dL [facility] Work Phone: Chloride [Moles/Vol] 94 mmol/L Low 98 - 10 7 mmol/L [facility] Work Phone: CO2 [Moles/Vol] 26 mmol/L 22 - 30 mmol/L [facility] Work Phone: Creatinine [Mass/Vol] 9.4 mg/dL High 0.52 - 1.25 mg/dL [facility] Work Phone: EGFR IF NonAfrican French 5.9 mL/min >60 [facility] Work Phone: Comment on above: Source- MDRD equatio n with creatinine calibration to IDMS(NKDEP) eGFR not recommended for drug dose adjustment GFR/1.73 sq M.predicted among blacks MDRD (S/P/Bld) [Vol rate/Area] 7.1 mL/min/{1.73_m2} >60 [facility] Work Phone: Glucose [Mass/Vol] 110 mg/dL High 70 - 100 mg/dL [facility] Work Phone: [phone] Interpretation and review of laboratory results Abnormal [facility] Work Phone: [phone] Potassium [Moles/Vol] 4.0 mmol/L 3.5 - 5.1 mmol/L [facility] Work Phone: [phone] Sodium [Moles/Vol] 135 mmol/L 135 - 145 mmol/L [facility] Work Phone: [phone] Urea nitrogen [Mass/Vol] 76 mg/dL High 7 - 20 mg/d L [facility] Work Phone: [phone] Test Performed by [facility] [employer], [address] [place], [place] [address] [facility] Work Phone: [phone] Basic Metabolic PanelOrdered By: Delon Jessica on 10-20-2019 Anion gap [Moles/Vol] 18 mmol/L [facility] Work Phone: [phone] Calcium [Mass/Vol] 7.9 mg/dL Low 8.4 - 10. 4 mg/dL [facility] Work Phone: [phone] Chloride [Moles/Vol] 95 mmol/L Low 98 - 10 7 mmol/L [facility] Work Phone: [phone] CO2 [Moles/Vol] 24 mmol/L 22 - 30 mmol/L [facility] Work Phone: [phone] Creatinine [Mass/Vol] 13.53 mg/dL High 0.52 - 1.25 mg/dL [facility] Work Phone: [phone] EGFR IF NonAfrican French 3.9 mL/min >60 [facility] Work Phone: [phone] Comment on above: Source- MDRD equatio n with creatinine calibration to IDMS(NKDEP) eGFR not recommended for drug dose adjustment GFR/1.73 sq M.predicted among blacks MDRD (S/P/Bld) [Vol rate/Area] 4.7 mL/min/{1.73_m2} >60 [facility] Work Phone: [phone] Glucose [Mass/Vol] 102 mg/dL High 70 - 100 mg/dL [facility] Work Phone: [phone] Interpretation and review of laboratory results Abnormal [facility] Work Phone: [phone] Potassium [Moles/Vol] 4.7 mmol/L 3.5 - 5.1 mmol/L [facility] Work Phone: 1 Sodium [Moles/Vol] 136 mmol/L 135 - 145 mmol/L [email or web address] Work Phone: Urea nitrogen [Mass/Vol] 123 mg/dL High 7 - 20 mg/d L [email or web address] Work Phone: Test Performed by [employer], [address] [place] [address] [facility] Work Phone: CBC Auto DifferentialOrdered By: Delon Jessica on 10-20-2019 Absolute Baso # 0.0 10*3/uL 0 - 0.2 10*3/uL [facility] Work Phone: Absolute Neut # 6.2 10*3/uL 1.8 - 7 10*3/uL [facility] Work Phone: Basophils/100 WBC (Bld) 0.4 % 0 - 2 % [facility] Work Phone: Eosinophils (Bld) [#/Vol] 0.1 10*3/uL 0 - 0.5 10*3/uL [facility] Work Phone: Eosinophils/100 WBC (Bld) 1.1 % 1 - 6 % [facility] Work Phone: Erythrocyte distribution width (RBC) [Ratio] 13.4 % 11.5 - 14.5 % [facility] Work Phone: Granulocytes/100 WBC (Bld) 69.5 % 40 - 80 % [facility] Work Phone: Hematocrit (Bld) [Volume fraction] 19.3 % Low 40 - 52 % [facility] Work Phone: Hemoglobin (Bld) [Mass/Vol] 6.6 g/dL Critically low 13 - 18 g/dL [facility] Work Phone: Interpretation and review of laboratory results Abnormal [facility] Work Phone: Lymphocytes (Bld) [#/Vol] 1.6 10*3/uL 1 - 4.3 10*3/uL [email or web address] Work Phone: Lymphocytes/100 WBC (Bld) 18.3 % Low 20 - 40 % [facility] Work Phone: 1 MCH (RBC) [Entitic mass] 29.4 pg 26 - 34 pg [facility] Work Phone: MCHC 34.1 % 32 - 36 % [facility] Work Phone: MCV (RBC) [Entitic vol] 86.2 fL 80 - 98 fL [facility] Work Phone: Monocytes (Bld) [#/Vol] 1.0 10*3/uL High 0 - 0.8 10*3/uL [facility] Work Phone: 1 Monocytes/100 WBC (Bld) 10.7 % High 2 - 10 % [facility] Work Phone: Platelet mean volume (Bld) [Entitic vol] 7.4 fL 7.4 - 10.4 fL [facility] Work Phone: Platelets (Bld) [#/Vol] 267 10*3/uL 140 - 440 10*3/uL [facility] Work Phone: RBC (Bld) [#/Vol] 2.24 10*6/uL Low 4.4 - 5.9 10*6/uL [facility] Work Phone: WBC (Bld) [#/Vol] 9.0 10*3/uL 3.6 - 10.7 10*3/uL [facility] Work Phone: Calcium, IonizedOrdered By: Delon Jessica on 10-20-2019 Interpretation and review of laboratory results Abnormal [facility] Work Phone: Ionized Ca 3.80 mg/dL Low 4.3 - 5.2 mg/dL [facility] Work Phone: pH (Bld) 7.41 [pH] [facility] Work Phone: Test Performed by [facility], [address] [place] [address] [facility] Work Phone: Hemoglobin and Hematocrit, B loodOrdered By: Brett Encarnacion on 10-20-2019 Hematocrit (Bld) [Volume fraction] 25.2 % Low 40 - 52 % [email or web address] Work Phone: 1 Hemoglobin (Bld) [Mass/Vol] 9.0 g/dL Low 13 - 18 g/dL [email or web address] Work Phone: Interpretation and review of laboratory results Abnormal [email or web address] Work Phone: 1 Test Performed by [employer], [address] [place] [address] [email or web address] Work Phone: Hemoglobin and Hematocrit, B loodOrdered By: Delon Jessica on 10-20-2019 Hematocrit (Bld) [Volume fraction] 19.6 % Low 40 - 52 % [email or web address] Work Phone: Hemoglobin (Bld) [Mass/Vol] 6.7 g/dL Critically low 13 - 18 g/dL [email or web address] Work Phone: Interpretation and review of laboratory results Abnormal [facility] Work Phone: Test Performed by [employer], [address] [place] [address] [email or web address] Work Phone: Laboratory - Blood bankOrder ed By: Delon Jessica on 10-20-2019 ABO and Rh group Nom (Bld) 9500 [facility] Work Phone: MagnesiumOrdered By: Delon Jessica on 10-20-2019 Magnesium [Mass/Vol] 1.8 mg/dL 1.6 - 2 .3 mg/dL [facility] Work Phone: No Panel InformationOrdered By: Delon Jessica on 10-20-2019 [facility], [address] [place], [place] [address]A Work Phone: Test [facility], [address] [place], [place] [address]A Work Phone: PREPARE RBC (CROSSMATCH), 2 UnitsOrdered By: Delon Jessica on 10-20-2019 Blood product unit ID (Dose) [#] [id number] [email or web address] Work Phone: Blood product unit ID (Dose) [#] [id number] [facility] Work Phone: [phone] Dispense Status Blood Bank transfused [facility] Work Phone: [phone] Expiration Date [id number] [facility] Work Phone: [phone] Product Code Blood Bank [id number] S [facility] Work Phone: [phone] [facility] Work Phone: [phone] PhosphorusOrdered By: Patrick Jessica on 10-20-2019 Interpretation and review of laboratory results Abnormal [facility] Work Phone: [phone] Phosphate [Mass/Vol] 12.3 mg/dL High 2.5 - 4 .5 mg/dL [facility] Work Phone: [phone] RBC MORPHOLOGYOrdered By: Caleb Jessica on 10-20-2019 Hypochromia Slight [facility] Work Phone: [phone] Poikilocytes Slight [facility] Work Phone: [phone] RBC morphology finding Nom (Bld) ABNORMAL [facility] Work Phone: [phone] Surgical PathologyOrdered By : Jeana Pedraza on 10-20-2019 Surgical Pathology Report SEE BELOW [facility] Work Phone: [phone] [id number] [facility] PATHOLOG[facility]ORATORY MEDICINE [address] [place], [place] [id number] FINAL PERIPHERAL BLOOD REPORT NAME: GLENN SNYDER : 1965 53 Y M BILLING NO.: [id number] LOCATION: [place] [address] 5 PROCEDURE 10/19/2019 DATE: SURGEON: JEANA PEDRAZA MD RECEIVED DATE: 10/20/2019 ATTENDING BRETT ENCARNACION REPORT DATE: 10/20/2019 : COPIES TO: DIAGNOSIS: NORMOCYTIC ANEMIA WITH ANISOCYTOSIS, INCLUDING SCHISTOCYTES AND MILD AGGLUTINATION, RULE OUT ANEMIA OF CHRONIC INFLAMMATION/RENAL DISEASE, IRON/NUTRITIONAL DEFICIENCIES, COAGULOPATHY AND/OR PARAPROTEINEMIA NO BLASTS OR DYSGRANULOPOIESIS IS SEEN. 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 CLINICAL INFORMATION: Peripheral [...] characteristics determined by the clinical laboratories of [facility]. They have not been cleared by [...] specimens. DEPARTMENT OF PATHOLOGY AND LABORATORY MEDICINE [place], [place] [address] [email or web address] Work Phone: Add On Lab TestOrdered By: Michelle Encarnacion on 10-19-2019 Add On Rejected [facility] Work Phone: 1 Test Performed by [employer], [address] [place], [place] [address] [facility] Work Phone: 1 Add On Lab TestOrdered By: Phoebe Nieves on 10-19-2019 Add On Accepted [email or web address] Work Phone: 1 Comment on above: Specimen available & acceptable for analysis. Test Performed by [employer], [address] [place] [address] [facility] Work Phone: 1 Add On Accepted [email or web address] Work Phone: 1 Comment on above: Specimen available & acceptable for analysis. Test Performed by [employer], [address] [place], [place] [address] [email or web address] Work Phone: 1 Basic Metabolic PanelOrdered By: [...] mg/dL [facility] Work Phone: EGFR IF NonAfrican French 4.3 mL/min >60 [facility] Work Phone: Comment on above: Source- MDRD equatio n with creatinine calibration to IDMS(NKDEP) eGFR not recommended for drug dose adjustment GFR/1.73 sq M.predicted among blacks MDRD (S/P/Bld) [Vol rate/Area] 5.2 mL/min/{1.73_m2} >60 [facility] Work Phone: [phone] Glucose [Mass/Vol] 109 mg/dL High 70 - 100 mg/dL [email or web address] Work Phone: [phone] Interpretation and review of laboratory results Abnormal [facility] Work Phone: Potassium [Moles/Vol] 4.4 mmol/L 3.5 - 5.1 mmol/L [facility] Work Phone: 1 Sodium [Moles/Vol] 134 mmol/L Low 135 - 145 mmol/L [facility] Work Phone: Urea nitrogen [Mass/Vol] 118 mg/dL High 7 - 20 mg/d L [email or web address] Work Phone: 1 Test Performed by [employer], [facility] [address] [place], [place] [id number] [place], [place] [email or web address] Work Phone: Blood Occult Stool Screen #1 Ordered By: Callie Nieves on 10-19-2019 Hemoglobin.gastrointesti nal Ql (Stl) Negative Negative NA [facility] Work Phone: Test Performed by [employer], [address] [place], [place] [address] [place], [place] [email or web address] Work Phone: [phone] ComplementOrdered By: Nadia Pedraza on 10-19-2019 C3 Complement 115 mg/dL 85 - 165 mg/dL [email or web address] Work Phone: C4 ComplementOrdered By: Nadia Pedraza on 10-19-2019 C4 Complement 37 mg/dL 14 - 44 mg/dL [email or web address] Work Phone: CBC Auto DifferentialOrdered By: Jeana Pedraza on 10-19-2019 Absolute Baso # 0.0 10*3/uL 0 - 0.2 10*3/uL [email or web address] Work Phone: Absolute Neut # 7.7 10*3/uL High 1.8 - 7 10*3/uL [facility] Work Phone: 22 Basophils/100 WBC (Bld) 0.1 % 0 - 2 % [facility] Work Phone: Eosinophils (Bld) [#/Vol] 0.0 10*3/uL 0 - 0.5 10*3/uL [facility] Work Phone: [phone] Eosinophils/100 WBC (Bld) 0.0 % Low 1 - 6 % [email or web address] Work Phone: 1 Erythrocyte distribution width (RBC) [Ratio] 13.1 % 11.5 - 14.5 % [email or web address] Work Phone: Granulocytes/100 WBC (Bld) 93.1 % High 40 - 80 % [email or web address] Work Phone: Hematocrit (Bld) [Volume fraction] 26.9 % Low 40 - 52 % [email or web address] Work Phone: Hemoglobin (Bld) [Mass/Vol] 9.1 g/dL Low 13 - 18 g/dL [email or web address] Work Phone: Interpretation and review of laboratory results Abnormal [facility] Work Phone: Lymphocytes (Bld) [#/Vol] 0.4 10*3/uL Low 1 - 4.3 10*3/uL [facility] Work Phone: Lymphocytes/100 WBC (Bld) 5.1 % Low 20 - 40 % [email or web address] Work Phone: MCH (RBC) [Entitic mass] 29.2 pg 26 - 34 pg [email or web address] Work Phone: MCHC 33.8 % 32 - 36 % [facility] Work Phone: MCV (RBC) [Entitic vol] 86.5 fL 80 - 98 fL [facility] Work Phone: Monocytes (Bld) [#/Vol] 0.1 10*3/uL 0 - 0.8 10*3/uL [email or web address] Work Phone: Monocytes/100 WBC (Bld) 1.7 % Low 2 - 10 % [facility] Work Phone: Platelet mean volume (Bld) [Entitic vol] 8.0 fL 7.4 - 10.4 fL [email or web address] Work Phone: Platelets (Bld) [#/Vol] 246 10*3/uL 140 - 440 10*3/uL [email or web address] Work Phone: RBC (Bld) [#/Vol] 3.11 10*6/uL Low 4.4 - 5.9 10*6/uL [facility] Work Phone: WBC (Bld) [#/Vol] 8.3 10*3/uL 3.6 - 10.7 10*3/uL [facility] Work Phone: Test Performed by [employer], [address] [place], [place] [address] [facility] Work Phone: CT Abdomen Pelvis Wo Contras tOrdered By: Callie Nieves on 10-19-2019 Patient Name: GLENN SNYDER ---CT--- Exam Date/Time 10/19/2019 08:12:[address] Abdomen/Pelvis (No PO, No IV) Ordering Physician DO NIEVES DAVID J Accession Number [id number] CPT4 Codes 35427 (CT Abdomen/Pelvis (No PO, No IV)) Reason [...] bilateral renal atrophy. No urologic calcification. 3. Letx-ly-byrthmqb diverticulosis. No acute diverticulitis. Report Dictated on --- Final --- Dictating Physician: MD BUTCHER ANTHONY J Signed Date and Time: 10/19/2019 8:40 am Signed by: MD BUTCHER ANTHONY J Transcribed Date and Time: 10/19/2019 8:41 [facility] Work Phone: Mike, [facility] Incoming Radiology Results From [facility] - 10/19/2019 8:42 AM EST Patient Name: GLENN SNYDER ---CT--- Exam Date/Time 10/19/2019 08:12:[address] Abdomen/Pelvis (No PO, No IV) Ordering Physician DO NIEVES DAVID J Accession Number [id number] CPT4 Codes 35752 (CT Abdomen/Pelvis (No PO, No IV)) Reason [...] bilateral renal atrophy. No urologic calcification. 3. Fovq-uw-yrhghynb diverticulosis. No acute diverticulitis. Report Dictated on --- Final --- Dictating Physician: MD BUTCHER ANTHONY J Signed Date and Time: 10/19/2019 8:40 am Signed by: MD BUTCHER ANTHONY J Transcribed Date and Time: 10/19/2019 8:41 [facility] Work Phone: [phone] Comprehensive Metabolic Pane lOrdered By: Callie Nieves on 10-19-2019 Albumin [Mass/Vol] 3.9 g/dL 3.5 - 5 g/dL [facility] Work Phone: [phone] ALP [Catalytic activity/Vol] 58 U/L 38 - 126 U/L [facility] Work Phone: [phone] ALT [Catalytic activity/Vol] 27 U/L 13 - 69 U/L [facility] Work Phone: [phone] Anion gap [Moles/Vol] 22 mmol/L [facility] Work Phone: [phone] AST [Catalytic activity/Vol] 41 U/L 15 - 46 U/L [facility] Work Phone: [phone] Bilirubin [Mass/Vol] 0.5 mg/dL 0.2 - 1 .3 mg/dL [facility] Work Phone: [phone] Calcium [Mass/Vol] 8.0 mg/dL Low 8.4 - 10. 4 mg/dL [facility] Work Phone: Chloride [Moles/Vol] 106 mmol/L 98 - 10 7 mmol/L [facility] Work Phone: CO2 [Moles/Vol] 8 mmol/L Low 22 - 30 mmol/L [facility] Work Phone: Creatinine [Mass/Vol] 17.04 mg/dL High 0.52 - 1.25 mg/dL [facility] Work Phone: [phone] EGFR IF NonAfrican French 3.0 mL/min >60 [facility] Work Phone: [phone] Comment on above: Source- MDRD equatio n with creatinine calibration to IDMS(NKDEP) eGFR not recommended for drug dose adjustment GFR/1.73 sq M.predicted among blacks MDRD (S/P/Bld) [Vol rate/Area] 3.6 mL/min/{1.73_m2} >60 [facility] Work Phone: [phone] Glucose [Mass/Vol] 93 mg/dL 70 - 100 mg/dL [facility] Work Phone: [phone] Interpretation and review of laboratory results Abnormal [facility] Work Phone: [phone] Potassium [Moles/Vol] 6.6 mmol/L Critically high 3.5 - 5.1 mmol/L [facility] Work Phone: [phone] Protein [Mass/Vol] 7.1 g/dL 6.3 - 8.2 g/dL [facility] Work Phone: [phone] Sodium [Moles/Vol] 136 mmol/L 135 - 145 mmol/L [facility] Work Phone: [phone] Urea nitrogen [Mass/Vol] 179 mg/dL High 7 - 20 mg/d L [facility] Work Phone: [phone] [facility], [address] [place] [id number] [place], [place] [address]A Work Phone: [phone] Albumin [Mass/Vol] 4.3 g/dL 3.5 - 5 g/dL [facility] Work Phone: [phone] ALP [Catalytic activity/Vol] 68 U/L 38 - 126 U/L [facility] Work Phone: [phone] ALT [Catalytic activity/Vol] 31 U/L 13 - 69 U/L [facility] Work Phone: [phone] Anion gap [Moles/Vol] 22 mmol/L [facility] Work Phone: [phone] AST [Catalytic activity/Vol] 38 U/L 15 - 46 U/L [facility] Work Phone: [phone] Bilirubin [Mass/Vol] 0.3 mg/dL 0.2 - 1 .3 mg/dL [facility] Work Phone: [phone] Calcium [Mass/Vol] 8.1 mg/dL Low 8.4 - 10. 4 mg/dL [email or web address] Work Phone: [phone] Chloride [Moles/Vol] 104 mmol/L 98 - 10 7 mmol/L [facility] Work Phone: CO2 [Moles/Vol] 10 mmol/L Low 22 - 30 mmol/L [email or web address] Work Phone: [phone] Creatinine [Mass/Vol] 17.95 mg/dL High 0.52 - 1.25 mg/dL [email or web address] Work Phone: [phone] EGFR IF NonAfrican French 2.8 mL/min >60 [facility] Work Phone: [phone] Comment on above: Source- MDRD equatio n with creatinine calibration to IDMS(NKDEP) eGFR not recommended for drug dose adjustment GFR/1.73 sq M.predicted among blacks MDRD (S/P/Bld) [Vol rate/Area] 3.4 mL/min/{1.73_m2} >60 [facility] Work Phone: [phone] Glucose [Mass/Vol] 101 mg/dL High 70 - 100 mg/dL [facility] Work Phone: [phone] Interpretation and review of laboratory results Abnormal [facility] Work Phone: [phone] Potassium [Moles/Vol] 7.3 mmol/L Critically high 3.5 - 5.1 mmol/L [facility] Work Phone: [phone] Protein [Mass/Vol] 7.9 g/dL 6.3 - 8.2 g/dL [facility] Work Phone: [phone] Sodium [Moles/Vol] 136 mmol/L 135 - 145 mmol/L [facility] Work Phone: [phone] Urea nitrogen [Mass/Vol] 179 mg/dL High 7 - 20 mg/d L [email or web address] Work Phone: [phone] Test Performed by [facility], [address] [place] [address] [facility] Work Phone: [phone] EKG 12 Lead - Chest PainOrde red By: Callie Nieves on 10-19-2019 [facility] Test Date: 2019-10-19 Pat Name: Glenn Snyder Department: 2AED Room: 19 Gender: M [employer] 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 : 1965 Requested By: CALLIE NIEVES Order Number: [id number] Reading MD: Alessia Tapia Measurements Intervals Tiona Rate: 97 P: 78 UT: 128 QRS: 49 QRSD: 106 T: 83 QT: 376 QTc: 478 Interpretive Statements SINUS RHYTHM LEFT ATRIAL ABNORMALITY INCOMPLETE RIGHT BUNDLE BRANCH BLOCK LEFT VENTRICULAR HYPERTROPHY BORDERLINE PROLONGED QT INTERVAL No previous ECG available for comparison Electronically Signed On 10-19-2019 8:49:06 EST by Alessia Tapia [facility] Work Phone: Mike, [facility] Incoming Cardiology Results From [facility] - 10/19/2019 8:50 AM EST [facility] Test Date: 2019-10-19 Pat Name: Glenn Snyder Department: 2[facility] Room: 19 Gender: M [employer] 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 : 1965 Requested By: CALLIE NIEVES Order Number: [id number] Reading MD: Alessia Tapia Measurements Intervals Tiona Rate: 97 P: 78 UT: 128 QRS: 49 QRSD: 106 T: 83 QT: 376 QTc: 478 Interpretive Statements SINUS RHYTHM LEFT ATRIAL ABNORMALITY INCOMPLETE RIGHT BUNDLE BRANCH BLOCK LEFT VENTRICULAR HYPERTROPHY BORDERLINE PROLONGED QT INTERVAL No previous ECG available for comparison Electronically Signed On 10-19-2019 8:49:06 EST by Alessia Tapia [facility] Work Phone: HEPATITIS B SURFACE ANTIGENO rdered By: Jeana Pedraza on 10-19-2019 Hepatitis B Surface Ag Not detected Not-D etected NA [facility] Work Phone: [phone] HIV ScreenOrdered By: Adan Encarnacion on 10-19-2019 HIV 1+2 AB+[id number] AG, EIA Non-Reactive Nonreactive NA [facility] Work Phone: Comment on above: Results obtained [...] # 0.1 10*3/uL 0 - 0.2 10*3/uL [email or web address] Work Phone: Absolute Neut # 11.3 10*3/uL High 1.8 - 7 10*3/uL [email or web address] Work Phone: 22 Basophils/100 WBC (Bld) 0.6 % 0 - 2 % [facility] Work Phone: Eosinophils (Bld) [#/Vol] 0.2 10*3/uL 0 - 0.5 10*3/uL [email or web address] Work Phone: Eosinophils/100 WBC (Bld) 1.2 % 1 - 6 % [email or web address] Work Phone: Erythrocyte distribution width (RBC) [Ratio] 13.4 % 11.5 - 14.5 % [email or web address] Work Phone: Granulocytes/100 WBC (Bld) 80.5 % High 40 - 80 % [email or web address] Work Phone: Hematocrit (Bld) [Volume fraction] 23.2 % Low 40 - 52 % [email or web address] Work Phone: Hemoglobin (Bld) [Mass/Vol] 7.8 g/dL Low 13 - 18 g/dL [email or web address] Work Phone: Interpretation and review of laboratory results Abnormal [email or web address] Work Phone: Lymphocytes (Bld) [#/Vol] 1.4 10*3/uL 1 - 4.3 10*3/uL [email or web address] Work Phone: 22 Lymphocytes/100 WBC (Bld) 9.8 % Low 20 - 40 % [email or web address] Work Phone: MCH (RBC) [Entitic mass] 29.4 pg 26 - 34 pg [email or web address] Work Phone: 22 MCHC 33.6 % 32 - 36 % [facility] Work Phone: 1 MCV (RBC) [Entitic vol] 87.4 fL 80 - 98 fL [facility] Work Phone: Monocytes (Bld) [#/Vol] 1.1 10*3/uL High 0 - 0.8 10*3/uL [email or web address] Work Phone: Monocytes/100 WBC (Bld) 7.9 % 2 - 10 % [facility] Work Phone: Platelet mean volume (Bld) [Entitic vol] 7.6 fL 7.4 - 10.4 fL [email or web address] Work Phone: 1 Platelets (Bld) [#/Vol] 293 10*3/uL 140 - 440 10*3/uL [facility] Work Phone: RBC (Bld) [#/Vol] 2.66 10*6/uL Low 4.4 - 5.9 10*6/uL [facility] Work Phone: WBC (Bld) [#/Vol] 14.1 10*3/uL High 3.6 - 10.7 10*3/uL [facility] Work Phone: Test Performed by [employer], [address] [place], [place] [address] [facility] Work Phone: Hepatitis C AntibodyOrdered By: Jeana Pedraza on 10-19-2019 Hepatitis C Ab Not detected Not-Detected NA [facility] Work Phone: Comment on above: Patients with DETECT ED Hepatitis C Ab results should have a new specimen submitted for supplemental testing with a Hepatitis C Quantitative RNA assay (viral load), if clinically indicated. MagnesiumOrdered By: Callie shaw on 10-19-2019 Magnesium [Mass/Vol] 2.1 mg/dL 1.6 - 2 .3 mg/dL [facility] Work Phone: Test Performed by [facility], [address] [place], [place] [address] [facility] Work Phone: No Panel InformationOrdered By: Brett Encarnacion on 10-19-2019 Test Performed by [facility], [address] [place] [id number] [email or web address] Work Phone: No Panel InformationOrdered By: Jeana Pedraza on 10-19-2019 Test Performed by [employer], [address] [place], [place] [address] [email or web address] Work Phone: 1 PROCALCITONINOrdered By: Eldon Encarnacion on 10-19-2019 Interpretation See Below [email or web address] Work Phone: Comment on above: PCT <0.50 = Low risk of severe sepsis and/or septic shock. PCT >2.00 = High risk of severe sepsis and/or septic shock. Interpretation and review of laboratory results Abnormal [employer] Work Phone: Procalcitonin 0.74 ng/mL Abnormal <0.10 [email or web address] Work Phone: 1 PhosphorusOrdered By: Callie Nieves on 10-19-2019 Interpretation and review of laboratory results Abnormal [email or web address] Work Phone: 1 Phosphate [Mass/Vol] 14.8 mg/dL High 2.5 - 4 .5 mg/dL [email or web address] Work Phone: Test Performed by [employer], [address] [place], [place] [address] [facility] Work Phone: TYPE AND SCREENOrdered By: Phoebe Nieves on 10-19-2019 ABO Grouping O [email or web address] Work Phone: Rh Type Negative [email or web address] Work Phone: Comment on above: Test Performed by [facility] [employer], [address] [place], [place] [address] [facility], [address] [place], [place] [address] [facility] Work Phone: TroponinOrdered By: Callie garcia on 10-19-2019 Interpretation and review of laboratory results Abnormal [email or web address] Work Phone: Troponin I.cardiac [Mass/Vol] 0.075 ng/mL High 0 - 0.034 ng/mL [email or web address] Work Phone: Comment on above: . Test Performed by [employer], [address] [place], [place] [address] [facility] Work Phone: 1 UrinalysisOrdered By: Callie Nieves on 10-19-2019 AMORPHOUS CRYSTAL Few Negative /[HPF] [facility] Work Phone: 1 Appearance (U) Clear Clear NA [facility] Work Phone: 1 Bacteria, UA Few Negative /[HPF] [facility] Work Phone: 1 Bilirubin Urine Negative Negative mg/dL [facility] Work Phone: 1 Color (U) Colorless Lt. Yellow NA [email or web address] Work Phone: 1 Glucose, Ur 200 mg/dL [...] 2 /[HPF] [facility] Work Phone: 1 Specific [place], Urine 1.009 S [facility] Work Phone: 1 22 Squam Epithel, UA 0-2 3 - 5 /[HPF] [facility] Work Phone: 1 Urobilinogen, Urine Normal Normal ( 0-1) mg/dL [facility] Work Phone: 1 22 WBC, UA 6-10 0 - 5 /[HPF] [facility] Work Phone: 1 Test Performed by [employer], [address] [place], [place] [address] [facility] Work Phone: [phone] XR CHEST PORTABLEOrdered By: Brett Encarnacion on 10-19-2019 Patient Name: GLENN SNYDER ---Diagnostic Radiology--- Exam Date/Time 10/19/2019 12:11:06 EST Exam CR Chest Portable Ordering Physician MD ENCARNACION MATTHEW Accession Number [id number] CPT4 Codes 97472 () Reason For Exam line placement/vascath Report [...] Phone: Mike, [facility] Incoming Radiology Results From [facility] - 10/19/2019 12:57 PM EST Patient Name: GLENN SNYDER ---Diagnostic Radiology--- Exam Date/Time 10/19/2019 12:11:06 EST Exam CR Chest Portable Ordering Physician MD ENCARNACION MATTHEW Accession Number [id number] CPT4 Codes 75126 () Reason For Exam line placement/vascath Report [...] RISA Transcribed Date and Time: 10/19/2019 12:56 [facility] Work Phone: Vital Signs Date Time Vital Sign Value Performing Clinician Faci lity 04-17-2025 09:36-0400 Body height 177.8 cm Keiry Solares MD Work Phone: [facility] 04-17-2025 09:36-0400 Body mass index (BMI) [Ratio] 21.81 kg/m2 Keiry Solares MD Work Phone: [facility] 04-17-2025 09:36-0400 Body temperature 98.01 [degF] Keiry Solares MD Work Phone: [facility] 04-17-2025 09:36-0400 Body weight 68.95 kg Keiry Solares MD Work Phone: [facility] 04-17-2025 09:36-0400 Diastolic blood pressure 88 mm[Hg] Keiry Solares MD Work Phone: [facility] 04-17-2025 09:36-0400 Respiratory rate 18 /min Keiry Solares MD Work Phone: [facility] 04-17-2025 09:36-0400 Systolic blood pressure 113 mm[Hg] Keiry Solares MD Work Phone: [facility] 04-17-2025 09:29-0400 Heart rate 81 /min Keiry Solares MD Work Phone: [facility] 04-17-2025 09:29-0400 SaO2% (BldA) [Mass fraction] 100 % Keiry Solares MD Work Phone: [facility] 04-09-2025 15:00-0400 Body temperature 98.29 [degF] Leilani Troncoso Work Phone: [facility] 04-09-2025 15:00-0400 Diastolic blood pressure 64 mm[Hg] Leilani Aba Work Phone: [facility] 04-09-2025 15:00-0400 Heart rate 90 /min Leilani Aba Work Phone: [facility] 04-09-2025 15:00-0400 Respiratory rate 16 /min Leilani Aba Work Phone: [facility] 04-09-2025 15:00-0400 SaO2% (BldA) [Mass fraction] 98 % Leilani Aba Work Phone: [facility] 04-09-2025 15:00-0400 Systolic blood pressure 117 mm[Hg] Leilani Aba Work Phone: [facility] 04-09-2025 11:58-0400 Body height 177.8 cm Leilani Aba Work Phone: [facility] 04-09-2025 11:58-0400 Body mass index (BMI) [Ratio] 21.52 kg/m2 Leilani Aba Work Phone: [facility] 04-09-2025 11:58-0400 Body weight 68.04 kg Leilani Aba Work Phone: [facility] 04-05-2025 20:00-0400 Diastolic blood pressure 89 mm[Hg] Dieter Villegas MD Work Phone: [facility] 04-05-2025 20:00-0400 Heart rate 91 /min Dieter iVllegas MD Work Phone: [facility] 04-05-2025 20:00-0400 Respiratory rate 16 /min Dieter Villegas MD Work Phone: [facility] 04-05-2025 20:00-0400 SaO2% (BldA) [Mass fraction] 97 % Dieter Villegas MD Work Phone: [facility] 04-05-2025 20:00-0400 Systolic blood pressure 148 mm[Hg] Dieter Villegas MD Work Phone: [facility] 04-05-2025 17:15-0400 Body temperature 97.9 [degF] Dieter Villegas MD Work Phone: [facility] 04-05-2025 10:15-0400 Body height 177.8 cm Dieter Villegas MD Work Phone: [facility] 04-05-2025 10:15-0400 Body mass index (BMI) [Ratio] 21.09 kg/m2 Dieter Villegas MD Work Phone: [facility] 04-05-2025 10:15-0400 Body weight 66.68 kg Dieter Villegas MD Work Phone: [facility] 03-21-2025 16:02-0400 Body temperature 98.29 [degF] Keiry Solares MD Work Phone: [facility] 03-21-2025 16:02-0400 Diastolic blood pressure 85 mm[Hg] Keiry Solares MD Work Phone: [facility] 03-21-2025 16:02-0400 Heart rate 71 /min Keiry Solares MD Work Phone: [facility] 03-21-2025 16:02-0400 Respiratory rate 18 /min Keiry Solares MD Work Phone: [facility] 03-21-2025 16:02-0400 SaO2% (BldA) [Mass fraction] 94 % Keiry Solares MD Work Phone: [facility] 03-21-2025 16:02-0400 Systolic blood pressure 147 mm[Hg] Keiry Solares MD Work Phone: [facility] 03-21-2025 03:15-0400 Body mass index (BMI) [Ratio] 22.24 kg/m2 Keiry Solares MD Work Phone: [facility] 03-21-2025 03:15-0400 Body weight 70.31 kg Keiry Solares MD Work Phone: [facility] 03-14-2025 16:17-0400 Body height 177.8 cm Keiry Solares MD Work Phone: [employer] [facility] 03-05-2025 14:03-0400 Body temperature 97 [degF] Mejgon Cuca DO Work Phone: [facility] 03-05-2025 14:03-0400 Diastolic blood pressure 83 mm[Hg] Mejgon Cuca DO Work Phone: [employer] 03-05-2025 14:03-0400 Heart rate 78 /min Mejgon Cuca DO Work Phone: [facility] 03-05-2025 14:03-0400 Respiratory rate 16 /min jgon Cuca DO Work Phone: [facility] 03-05-2025 14:03-0400 SaO2% (BldA) [Mass fraction] 100 % Mejgon Cuca DO Work Phone: [facility] 03-05-2025 14:03-0400 Systolic blood pressure 137 mm[Hg] Mejgon Cuca DO Work Phone: [facility] 02-23-2025 14:13-0400 Body height 177.8 cm Mejgon Cuca DO Work Phone: [employer] 02-23-2025 14:13-0400 Body mass index (BMI) [Ratio] 19.23 kg/m2 Metaryngon Cuca DO Work Phone: [employer] 02-23-2025 14:13-0400 Body weight 60.78 kg Metaryngon Cuca DO Work Phone: [employer] [facility] 02-14-2025 10:30-0400 Body height 177.8 cm Mikala Day PA-C Work Phone: [employer] 02-14-2025 10:30-0400 Body mass index (BMI) [Ratio] 18.65 kg/m2 Mikala Day PA-C Work Phone: [employer] 02-14-2025 10:30-0400 Body temperature 96.8 [degF] Mikala Day PA-C Work Phone: [employer] [facility] 02-14-2025 10:30-0400 Body weight 58.97 kg Mikala Day PA-C Work Phone: [employer] [facility] 02-14-2025 10:30-0400 Diastolic blood pressure 72 mm[Hg] Mikala Day PA-C Work Phone: [employer] [facility] 02-14-2025 10:30-0400 Heart rate 89 /min Mikala Day PA-C Work Phone: [facility] 02-14-2025 10:30-0400 SaO2% (BldA) [Mass fraction] 98 % Mikala Day PA-C Work Phone: [employer] [facility] 02-14-2025 10:30-0400 Systolic blood pressure 138 mm[Hg] Mikala Day PA-C Work Phone: [employer] [facility] 02-01-2025 15:02-0400 Body temperature 96.69 [degF] Lazaro Rojo MD Work Phone: [employer] [facility] 02-01-2025 15:02-0400 Diastolic blood pressure 60 mm[Hg] Lazaro Rojo MD Work Phone: [employer] [facility] 02-01-2025 15:02-0400 Heart rate 81 /min Lazaro Rojo MD Work Phone: [employer] [facility] 02-01-2025 15:02-0400 Respiratory rate 16 /min Lazaro Rojo MD Work Phone: [employer] [facility] 02-01-2025 15:02-0400 SaO2% (BldA) [Mass fraction] 98 % Lazaro Rojo MD Work Phone: [employer] [facility] 02-01-2025 15:02-0400 Systolic blood pressure 118 mm[Hg] Lazaro Rojo MD Work Phone: [employer] [facility] 02-01-2025 05:36-0400 Body mass index (BMI) [Ratio] 14.58 kg/m2 Lazaro Rojo MD Work Phone: [employer] [facility] 02-01-2025 05:36-0400 Body weight 46.1 kg Lazaro Rojo MD Work Phone: [facility] 01-30-2025 10:02-0400 Body height 177.8 cm Lazaro Rojo MD Work Phone: [facility] 08-28-2024 15:33-0500 Body height 177.8 cm Jr Shah MD Work Phone: [facility] 08-28-2024 15:33-0500 Body mass index (BMI) [Ratio] 29.56 kg/m2 Jr Shah MD Work Phone: [facility] 08-28-2024 15:33-0500 Body weight 93.44 kg Jr Shah MD Work Phone: [facility] 08-28-2024 15:33-0500 Diastolic blood pressure 80 mm[Hg] Jr Shah MD Work Phone: [facility] 08-28-2024 15:33-0500 Heart rate 75 /min Jr Shah MD Work Phone: [facility] 08-28-2024 15:33-0500 Systolic blood pressure 130 mm[Hg] Jr Shah MD Work Phone: [facility] 11-12-2023 14:16-0500 Diastolic blood pressure 84 mm[Hg] Quiana Contreras APRN - WELLNESS NURSE RN Work Phone: [facility] 11-12-2023 14:16-0500 Systolic blood pressure 138 mm[Hg] Quiana Contreras APRN - WELLNESS NURSE RN Work Phone: [facility] 11-12-2023 13:41-0500 Body height 177.8 cm Quiana Contreras APRN - WELLNESS NURSE RN Work Phone: [facility] 11-12-2023 13:41-0500 Body mass index (BMI) [Ratio] 29.84 kg/m2 Quiana Contreras APRN - WELLNESS NURSE RN Work Phone: [facility] 11-12-2023 13:41-0500 Body weight 94.35 kg Quiana Contreras APRN - WELLNESS NURSE RN Work Phone: [employer] [facility] 11-12-2023 13:41-0500 Heart rate 85 /min Quiana Contreras APPLICATIONS MANAGER - WELLNESS NURSE RN Work Phone: [facility] 08-17-2023 13:12-0500 Diastolic blood pressure 67 mm[Hg] Dangelo Horne DO Work Phone: [employer] [facility] 08-17-2023 13:12-0500 Heart rate 84 /min Dionicion Ozzie DO Work Phone: [employer] [facility] 08-17-2023 13:12-0500 Respiratory rate 18 /min Dionicion Entiat DO Work Phone: [employer] [facility] 08-17-2023 13:12-0500 SaO2% (BldA) [Mass fraction] 98 % Dionicion Ozzie DO Work Phone: [employer] [facility] 08-17-2023 13:12-0500 Systolic blood pressure 94 mm[Hg] Dionicion Ozzie DO Work Phone: [employer] [facility] 08-17-2023 09:13-0500 Body height 177.8 cm Dionicion Entiat DO Work Phone: [employer] [facility] 08-17-2023 09:13-0500 Body mass index (BMI) [Ratio] 28.7 kg/m2 Dionicion Entiat DO Work Phone: [employer] [facility] 08-17-2023 09:13-0500 Body weight 90.72 kg Dionicion Ozzie DO Work Phone: [employer] [facility] 08-17-2023 08:50-0500 Body temperature 99 [degF] Gurinderlyn Entiat DO Work Phone: [employer] [facility] 05-01-2023 20:36-0400 Diastolic blood pressure 85 mm[Hg] Jese Frank MD Work Phone: [employer] [facility] 05-01-2023 20:36-0400 Heart rate 74 /min Jese Frank MD Work Phone: [facility] 05-01-2023 20:36-0400 Respiratory rate 20 /min Jese Frank MD Work Phone: [facility] 05-01-2023 20:36-0400 SaO2% (BldA) [Mass fraction] 95 % Jese Frank MD Work Phone: [facility] 05-01-2023 20:36-0400 Systolic blood pressure 135 mm[Hg] Jese Frank MD Work Phone: [facility] 05-01-2023 20:08-0400 Body height 177.8 cm Jese Frank MD Work Phone: [facility] 05-01-2023 20:08-0400 Body mass index (BMI) [Ratio] 28.7 kg/m2 Jese Frank MD Work Phone: [facility] 05-01-2023 20:08-0400 Body temperature 98.2 [degF] Jese Frank MD Work Phone: [facility] 05-01-2023 20:08-0400 Body weight 90.72 kg Jese Frank MD Work Phone: [facility] 12-25-2021 15:50-0400 Body height 177.8 cm Rudy Painter MD Work Phone: [facility] 12-25-2021 15:50-0400 Body weight 99.79 kg Rudy Painter MD Work Phone: [facility] 12-25-2021 15:50-0400 Diastolic blood pressure 72 mm[Hg] Rudy Painter MD Work Phone: [facility] 12-25-2021 15:50-0400 Heart rate 70 /min Rudy Painter MD Work Phone: [facility] 12-25-2021 15:50-0400 Systolic blood pressure 130 mm[Hg] Rudy Painter MD Work Phone: [facility] 09-15-2021 11:20-0500 Body temperature 97.59 [degF] Cindy Patel MD Work Phone: [facility] 09-15-2021 11:20-0500 Diastolic blood pressure 83 mm[Hg] Cindy Patel MD Work Phone: [facility] 09-15-2021 11:20-0500 Heart rate 85 /min Cindy Patel MD Work Phone: [facility] 09-15-2021 11:20-0500 Respiratory rate 20 /min Cindy Patel MD Work Phone: [facility] 09-15-2021 11:20-0500 SaO2% (BldA) [Mass fraction] 98 % Cindy Patel MD Work Phone: [facility] 09-15-2021 11:20-0500 Systolic blood pressure 144 mm[Hg] Cindy Patel MD Work Phone: [facility] 09-15-2021 09:19-0500 Body height 177.8 cm Cindy Patel MD Work Phone: [facility] 09-15-2021 09:19-0500 Body mass index (BMI) [Ratio] 30.05 kg/m2 Cindy Patel MD Work Phone: [facility] 09-15-2021 09:19-0500 Body weight 94.98 kg Cindy Patel MD Work Phone: [facility] 10-27-2019 20:02-0500 Body temperature 97.2 [degF] Callie Damir DO Work Phone: [facility] Work Phone: 10-27-2019 20:02-0500 Diastolic blood pressure 77 mm[Hg] Callie Damir DO Work Phone: [facility] Work Phone: 10-27-2019 20:02-0500 Heart rate 107 /min Callie Damir DO Work Phone: [facility] Work Phone: 10-27-2019 20:02-0500 Respiratory rate 16 /min [employer] Work Phone: [email or web address] Work Phone: 10-27-2019 20:02-0500 SaO2% (BldA) [Mass fraction] 96 % [employer] Work Phone: [email or web address] Work Phone: 10-27-2019 20:02-0500 Systolic blood pressure 112 mm[Hg] [employer] Work Phone: [email or web address] Work Phone: 10-27-2019 14:10-0500 Body mass index (BMI) [Ratio] 27.08 kg/m2 [employer] Work Phone: [email or web address] Work Phone: 10-27-2019 14:10-0500 Body weight 85.6 kg Callie Poolami Work Phone: [email or web address] Work Phone: 10-19-2019 12:45-0500 Body height 177.8 cm Callie Poolami Work Phone: [email or web address] Work Phone: Encounters Encounter Date Encounter Type Care Provider Facility Start: 04-17-2025 End: 04-17-2025 Emergency department patient visit Keiry Solares MD Work Phone: [facility] Comment on above: Supratherapeutic INR (Primary Dx); Necrosis (HCC) Start: 04-17-20[facility] Start: 04-16-[facility] Start: 04-12-2025 End: 04-12-2025 Subsequent hospital visit by physician [facility] Exam Room [address] Comment on above: Hemoptysis Start: 04-12-2025 End: 04-12-2025 [facility] Start: 04-11-2025 End: 04-11-2025 Telephone encounter Piedad Genao DPM Work Phone: [facility] Orthopedics and Sports Medicine [facility] Comment on above: Appointment Start: 04-09-2025 End: 04-09-2025 Emergency department patient visit LEILANI TRONCOSO [facility] Comment on above: ESRD on hemodialysis (CMS/HCC) (HCC) (Primary Dx); Contusion of dorsum of right hand Start: 04-09-2025 [facility] Start: 04-05-2025 End: 04-05-2025 Telephone encounter Sophia Lara APRN - WELLNESS NURSE RN Work Phone: [facility] Comment on above: Cancelled Appointmen t Start: 04-05-2025 End: 04-05-2025 Emergency department patient visit Dieter Villegas MD Work Phone: [facility] Comment on above: Tachycardia (Primary Dx); Dialysis patient (HCC) Start: 04-05-2025 [facility] Start: 04-02-2025 ambulatory [facility] Facility:[facility] Start: 03-29-2025 ambulatory [facility] Facility:[facility] Start: 03-26-2025 End: 03-28-2025 Telephone encounter Sophia Lara APPLICATIONS MANAGER - WELLNESS NURSE RN Work Phone: [facility] Comment on above: Appointment Start: 03-26-2025 ambulatory Jayesh ALBA Faci lity:[facility] Start: 03-22-2025 [facility] Start: 03-22-2025 Registered Referred Kayley ortiz MD -[facility] Start: 03-13-2025 End: 03-21-2025 Evaluation and management of inpatient Keiry Solares MD Work Phone: [facility] Cardiac Progressive Care Unit PCU 5W Comment on above: SOB (shortness of br eath) (Primary Dx); 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, 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) Start: 03-12-2025 ambulatory Jayesh Stubbs PARTH Faci lity:[facility] Start: 03-12-2025 Registered Referred Jayesh Stubbs ADOR Start: 03-09-2025 ambulatory Jayesh Samuelsjennifer ALBA Faci lity:[facility] Start: 03-09-2025 Registered Referred [facility]esh [facility]ubbs [facility] Start: 03-08-2025 End: 03-08-2025 Orders Only Christelle Eckert RN [facility] [place] Comment on above: Tracheostomy depende nce (HCC) (Primary Dx); Tracheostomy complication, unspecified complication type (HCC); Acute respiratory failure with hypoxia (HCC) [J96.01] Start: 03-08-2025 Registered Referred Kayley ortiz MD -[facility] Start: 02-23-2025 End: 02-23-2025 Telephone encounter Elly Jett MD Work Phone: [facility] Comment on above: Appointment Start: 02-21-2025 End: 02-25-2025 Telephone encounter Hussain Quintana MD Work Phone: [facility] Infectious Disease [facility] Comment on above: Other Start: 02-20-2025 End: 03-05-2025 Evaluation and management of inpatient Palak Thurman DO Work Phone: [facility] Trauma Neuro Progressive Care Unit PCU 3W Start: 02-20-2025 End: 02-20-2025 ambulatory Kayley Melendrez MD [facility] Work Phone: Start: 02-20-2025 End: 02-20-2025 Departed Referred Kayley Melendrez MD -[facility] Start: 02-20-2025 [facility]istered [facility] Start: 02-20-2025 End: 02-20-2025 ambulatory Kayley ALBA Facility:[facility] Start: 02-15-2025 End: 02-15-2025 ambulatory Kayley Melendrez MD [facility] Work Phone: Start: 02-15-2025 End: 02-15-2025 Departed Referred Kayley [facility] Start: 02-15-2025 Registered Referred Kayley Shen Alden Wonga Start: 02-14-2025 End: 02-14-2025 Office outpatient visit 25 minutes Mikala Day PA-C Work Phone: [facility] Infectious Disease - [place] Comment on above: Sacral osteomyelitis (CMS/HCC) (HCC) (Primary Dx); ESRD on hemodialysis (CMS/HCC) (HCC); 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, 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); Decubitus ulcer of sacral region, unstageable (HCC); jail (current) use of antibiotics Start: 02-14-2025 End: 02-15-2025 ambulatory Kayley ALBA Facility:[facility] Start: 02-13-2025 ambulatory Kayley bella OLS Facility:[facility] Start: 02-13-2025 Registered Referred Kayley [facility] Start: 02-12-2025 End: 02-12-2025 ambulatory Kayley [facility] Start: 02-12-2025 End: 02-12-2025 Departed Referred Kayley [facility] Start: 02-12-2025 Registered Referred Kayley [facility] Start: 02-12-2025 End: 02-12-2025 ambulatory Kayley ALBA Facility:[facility] Start: 02-08-2025 End: 02-08-2025 ambulatory Kayley [facility] Start: 02-08-2025 End: 02-08-2025 Departed Referred Kayley [facility] Start: 02-08-2025 [facility]istered [facility] Start: 02-07-2025 End: 02-08-2025 ambulatory Kayley ALBA [facility] Work Phone: Start: 02-07-2025 End: 02-07-2025 Departed Referred Jayesh Clarahoward [facility] Start: 02-07-2025 Registered Referred Jayesh [facility]ahoward [facility] Start: 02-07-2025 End: 02-07-2025 ambulatory Jayesh ALBA Facility:[facility] Start: 02-05-2025 End: 02-05-2025 ambulatory Kayley Melendrez MD [facility] Work Phone: Start: 02-05-2025 End: 02-05-2025 Departed Referred Kayley Melendrez MD ADOR Start: 02-05-2025 End: 02-05-2025 ambulatory Lexisamparo Rejianeudymaria teresasamsno ALBA Facility:[facility] Start: 02-02-2025 End: 02-02-2025 Anticoagulant drug monitoring Adalberto SanchezD [facility] Comment on above: S/P AVR (Primary Dx) Start: 01-29-2025 End: 02-05-2025 Telephone encounter Adina Montenegro MA [facility] Anticoagulatio n Management Service Comment on above: Anticoagulation Start: 01-19-2025 End: 02-01-2025 Evaluation and management of inpatient Lazaro Rojo MD Work Phone: [facility] Cardiac Vascular Progressive Care Unit PCC 1C Start: 01-18-2025 End: 01-18-2025 ambulatory Jefferson Nathan MD Work Phone: [facility] Pulmonary and Sleep Medicine [place] Comment on above: Acute respiratory fa ilure with hypoxia (HCC) [J96.01] (Primary Dx); RSV (acute bronchiolitis due to respiratory syncytial virus); Tracheostomy dependence (HCC); Leg DVT (deep venous thromboembolism), acute, left (HCC); Pulmonary embolism, unspecified chronicity, unspecified pulmonary embolism type, unspecified whether acute cor pulmonale present (HCC); S/P AVR Start: 01-17-2025 End: 01-17-2025 ambulatory Jefferson Nathan MD Work Phone: [facility] Pulmonary [facility] Sleep [facility] Comment on above: RSV (acute bronchiol itis due to respiratory syncytial virus) (Primary Dx); Tracheostomy dependence (HCC); Pneumonia of both lungs due to methicillin susceptible Staphylococcus aureus (MSSA), unspecified part of lung (HCC); Acute respiratory failure with hypoxia ([facility]) [J96.01]; Nonrheumatic aortic valve stenosis; Pulmonary embolism, unspecified chronicity, unspecified pulmonary embolism type, unspecified whether acute cor pulmonale present (HCC) Tracheostomy depende nce ([facility]) (Primary Dx); ESRD on hemodialysis (CMS/[facility]) ([facility]); 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; Decubitus ulcer of sacral region, unstageable (HCC); Sacral osteomyelitis (CMS/[facility]) (HCC) Start: 01-16-2025 End: 01-16-2025 ambulatory Jefferson Nathan MD Work Phone: [facility] Sleep [facility] Comment on above: RSV (acute bronchiol itis due to respiratory syncytial virus) (Primary Dx); Tracheostomy dependence (HCC); Pneumonia of both lungs due to methicillin susceptible Staphylococcus aureus (MSSA), unspecified part of lung (HCC); Acute respiratory failure with hypoxia ([facility]) [J96.01]; Nonrheumatic aortic valve stenosis; Pulmonary embolism, unspecified chronicity, unspecified pulmonary embolism type, unspecified whether acute cor pulmonale present (HCC) Start: 01-15-2025 End: 01-15-2025 ambulatory Jefferson Nathan MD Work Phone: [facility] Comment on above: RSV (acute bronchiol itis due to respiratory syncytial virus) (Primary Dx); Tracheostomy dependence (HCC); Acute respiratory failure with hypoxia (HCC) [J96.01]; Leg DVT (deep venous thromboembolism), acute, left (HCC); Pulmonary embolism, unspecified chronicity, unspecified pulmonary embolism type, unspecified whether acute cor pulmonale present (HCC); S/P AVR Tracheostomy depende nce ([facility]) (Primary Dx); ESRD on hemodialysis (CMS/HCC) (HCC); 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, 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); Sacral osteomyelitis (CMS/HCC) (HCC); Leukocytosis, unspecified type Start: 01-14-2025 End: 01-14-2025 ambulatory Hany Berrios MD Work Phone: [facility] Pulmonary and Sleep Medicine [facility] Comment on above: Acute respiratory fa ilure with hypoxia (HCC) [J96.01] (Primary Dx); 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]; Pulmonary embolism, other, unspecified chronicity, unspecified whether acute cor pulmonale present (HCC) Start: 01-12-2025 End: 01-12-2025 ambulatory Mikala Day PA-C Work Phone: [facility] Comment on above: Tracheostomy depende nce (HCC) (Primary Dx); Sacral osteomyelitis (CMS/HCC) (HCC); Leukocytosis, unspecified type; Decubitus ulcer of sacral region, unstageable (HCC); jail (current) use of antibiotics Acute respiratory fa ilure with hypoxia (HCC) [J96.01] (Primary Dx); 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]; Pulmonary embolism, other, unspecified chronicity, unspecified whether acute cor pulmonale present (HCC) Start: 01-11-2025 End: 01-11-2025 ambulatory Mikala Day PA-C Work Phone: [facility] Comment on above: Tracheostomy [...] 01-10-2025 ambulatory Hany Berrios MD Work Phone: [facility] Pulmonary and Sleep Medicine [facility] Comment on above: Acute respiratory fa ilure with hypoxia (HCC) [J96.01] (Primary Dx); 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]; Pulmonary embolism, other, unspecified chronicity, unspecified whether acute cor pulmonale present (HCC) Start: 01-09-2025 End: 01-09-2025 ambulatory Mikala Day PA-C Work Phone: [facility] Comment on above: Tracheostomy [...] 01-08-2025 ambulatory Mikala Day PA-C Work Phone: [facility] Comment on above: Tracheostomy [...] (HCC) Start: 01-05-2025 End: 01-05-2025 ambulatory Sydni Forrester CNP Work Phone: [facility] Infectious Disease - [place] Comment on above: Pneumonia of both marleny ngs due to methicillin susceptible Staphylococcus aureus (MSSA), unspecified part of lung (HCC) (Primary Dx); Acute hypoxic respiratory failure (HCC); Tracheostomy dependence (HCC); ESRD on hemodialysis (CMS/HCC) (HCC); Sacral osteomyelitis (CMS/HCC) (HCC); Decubitus ulcer of sacral region, unstageable (HCC) Start: 01-05-2025 End: 01-05-2025 Patient encounter procedure Chandrika Allen APPLICATIONS MANAGER - WELLNESS NURSE RN Work Phone: [facility] [place] Comment on above: Acute respiratory fa ilure with hypoxia (HCC) [J96.01] (Primary Dx); 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]; LRTI (lower respiratory tract infection) [J22] Start: 01-04-2025 End: 01-04-2025 Admission to same day surgery center Sydni Husain APPLICATIONS MANAGER - WELLNESS NURSE RN Work Phone: [facility] - [place] Comment [...] Start: 01-04-2025 End: 01-04-2025 ambulatory Sydni Husain APPLICATIONS MANAGER - WELLNESS NURSE RN Work Phone: [facility] [place] Start: 01-04-2025 End: 01-04-2025 [facility] hospital care/day 25 minutes Angeles Blackburn DO Work Phone: [facility] [place] Comment on above: 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] (Primary Dx); Acute respiratory failure with hypoxia (HCC) [J96.01] Start: 01-03-2025 End: 01-03-2025 ambulatory Josephine Cash APRN - WELLNESS NURSE RN Work Phone: [facility] Infectious Disease Mitzy Sinha Comment on above: Sacral osteomyelitis (CMS/HCC) (HCC) (Primary Dx); Decubitus ulcer of sacral region, unstageable (HCC); Pneumonia of both lungs due to methicillin susceptible Staphylococcus aureus (MSSA), unspecified part of lung (HCC); Leukocytosis, unspecified type; ESRD on hemodialysis (CMS/[facility]) (HCC); S/P AVR Start: 01-03-2025 End: 01-03-2025 [facility] hospital care/day 25 minutes Angeles Blackburn DO Work Phone: [facility] [place] Comment on above: 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] (Primary Dx); Acute respiratory failure with hypoxia (HCC) [J96.01] Start: 01-02-2025 End: 01-02-2025 ambulatory Josephine Cash APRN - WELLNESS NURSE RN Work Phone: [facility] - [place] Comment on above: Leukocytosis, unspec ified type (Primary Dx); Pneumonia of both lungs due to methicillin susceptible Staphylococcus aureus (MSSA), unspecified part of lung (HCC); Acute hypoxic respiratory failure (HCC); Decubitus ulcer of sacral region, unstageable (HCC); ESRD on hemodialysis ([facility]) (HCC); S/P AVR Start: 01-02-2025 End: 01-02-2025 [facility] hospital care/day 25 minutes Angeles Blackburn DO Work Phone: [facility] [place] Comment on above: 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] (Primary Dx); Acute respiratory failure with hypoxia (HCC) [J96.01] Start: 01-01-2025 End: 01-01-2025 ambulatory Ochoa Guido MD Work Phone: [facility] Cardiology - [place] Comment on above: Persistent atrial fi brillation (HCC) (Primary Dx) Leukocytosis, unspec ified type (Primary Dx); Pneumonia of both lungs due to methicillin susceptible Staphylococcus aureus (MSSA), unspecified part of lung (HCC); Acute hypoxic respiratory failure (HCC); Tracheostomy dependence (HCC); Decubitus ulcer of sacral region, unstageable (HCC); ESRD on hemodialysis (CMS/[facility]) (HCC); S/P AVR Start: 01-01-2025 End: 01-01-2025 [facility] hospital care/day 25 minutes Angeles Blackburn DO Work Phone: [facility] Lung [facility] Comment on above: 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] (Primary Dx); Acute respiratory failure with hypoxia (HCC) [J96.01] Start: 12-30-2024 End: 12-30-2024 ambulatory Josephine Cash APPLICATIONS MANAGER - WELLNESS NURSE RN Work Phone: [facility] Comment on above: Leukocytosis, unspec ified type (Primary Dx); Acute hypoxic respiratory failure (HCC); Tracheostomy dependence (HCC); S/P AVR; ESRD on hemodialysis ([facility]/HCC) (HCC); Decubitus ulcer of sacral region, unstageable (HCC) Start: 12-28-2024 End: 12-28-2024 ambulatory Mercedes Hinton APPLICATIONS MANAGER - WELLNESS NURSE RN [facility] Start: 12-28-2024 End: 12-28-2024 Patient encounter procedure Mercedes Hinton APPLICATIONS MANAGER - WELLNESS NURSE RN Work Phone: [facility] Comment on above: Acute respiratory fa ilure with hypoxia (HCC) [J96.01] (Primary Dx); 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]; Tracheostomy care (HCC) [Z43.0]; History of pulmonary embolus (PE) [Z86.711] Start: 12-27-2024 End: 12-27-2024 ambulatory Mercedes Hinton APPLICATIONS MANAGER - WELLNESS NURSE RN Work Phone: [facility] [place] Start: 12-27-2024 End: 12-27-2024 Patient encounter procedure Mercedes Hinton APPLICATIONS MANAGER - WELLNESS NURSE RN Work Phone: [facility] Comment on above: Acute respiratory fa ilure with hypoxia (HCC) [J96.01] (Primary Dx); 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]; Tracheostomy care (HCC) [Z43.0]; History of pulmonary embolus (PE) [Z86.711] Start: 12-26-2024 End: 12-26-2024 ambulatory Merecdes Hinton APPLICATIONS MANAGER - WELLNESS NURSE RN Work Phone: [facility]od[facility] Start: 12-26-2024 End: 12-26-2024 Patient encounter procedure Mercedes Hinton APPLICATIONS MANAGER - WELLNESS NURSE RN Work Phone: [facility] Comment on above: Acute respiratory fa ilure with hypoxia (HCC) [J96.01] (Primary Dx); 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]; Tracheostomy care (HCC) [Z43.0]; History of pulmonary embolus (PE) [Z86.711] Start: 12-22-2024 End: 12-22-2024 ambulatory Chandrika Allen APPLICATIONS MANAGER - WELLNESS NURSE RN Work Phone: [facility] Start: 12-22-2024 End: 12-22-2024 Patient encounter procedure Chandrika Allen APPLICATIONS MANAGER - WELLNESS NURSE RN Work Phone: [facility] Comment on above: 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] (Primary Dx); Acute respiratory failure with hypoxia (HCC) [J96.01]; LRTI (lower respiratory tract infection) [J22] Start: 12-21-2024 End: 12-21-2024 ambulatory Chandrika Allen APPLICATIONS MANAGER - WELLNESS NURSE RN Work Phone: [facility] Start: 12-21-2024 End: 12-21-2024 Patient encounter procedure Chandrika Allen APPLICATIONS MANAGER - WELLNESS NURSE RN Work Phone: [facility] Comment on above: 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 Start: 12-19-2024 End: 12-19-2024 Patient encounter procedure Chandrika Allen APRN - WELLNESS NURSE RN Work Phone: 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 Comment on above: Acute respiratory fa ilure with hypoxia (HCC) (Primary Dx); Tracheostomy dependence (HCC); RSV (acute bronchiolitis due to respiratory syncytial virus); Leg DVT (deep venous thromboembolism), acute, left (HCC); Nonrheumatic aortic valve stenosis Start: 12-14-2024 End: 12-14-2024 ambulatory Jefferson Nathan MD Work Phone: [facility] Comment on above: Acute respiratory fa ilure with hypoxia (HCC) (Primary Dx); Tracheostomy dependence (HCC); RSV (acute bronchiolitis due to respiratory syncytial virus); ESRD on hemodialysis (CMS/HCC) (HCC); Pulmonary embolism, other, unspecified chronicity, unspecified whether acute cor pulmonale present (HCC); Nonrheumatic aortic valve stenosis Start: 12-13-2024 End: 12-13-2024 ambulatory Jefferson Nathan MD Work Phone: [facility] Comment on above: Acute respiratory fa ilure with hypoxia (HCC) (Primary Dx); Tracheostomy dependence (HCC); RSV (acute bronchiolitis due to respiratory syncytial virus); Paroxysmal A-fib (CMS/HCC) (HCC); Nonrheumatic aortic valve stenosis Start: 12-12-2024 End: 12-12-2024 ambulatory Jefferson Nathan MD Work Phone: [facility] Comment on above: RSV (acute bronchiol itis due to respiratory syncytial virus) (Primary Dx); Tracheostomy dependence (HCC); Acute respiratory failure with hypoxia (HCC); Paroxysmal A-fib (CMS/HCC) (HCC); Peritonitis due to fungus (HCC) Start: 12-11-2024 End: 12-11-2024 ambulatory Jefferson Nathan MD Work Phone: [facility] Comment on above: RSV (acute bronchiol [...] day surgery center Sydni Husain APRN - WELLNESS NURSE RN Work Phone: [facility] Infectious Disease - [place] Comment on above: Acute respiratory fa ilure with hypoxia (HCC) (Primary Dx); Tracheostomy dependence (HCC); S/P AVR; Peritonitis due to fungus (HCC); ESRD on hemodialysis (CMS/HCC) (HCC); 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, 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); Anemia, unspecified type; History of abdominal surgery Start: 12-07-2024 End: 12-07-2024 ambulatory Sydni Husain APRN - WELLNESS NURSE RN Work Phone: [facility] Infectious Disease - [place] Start: 12-07-2024 End: 03-23-2025 [facility] hospital care/day 25 minutes Vincent Meek MD Work Phone: [facility] [place] Comment on above: Acute respiratory fa ilure with hypoxia (HCC) (Primary Dx); Ventilator dependent (HCC); Tracheostomy dependence (HCC); Pulmonary embolism, other, unspecified chronicity, unspecified whether acute cor pulmonale present (HCC); S/P AVR; ESRD on hemodialysis (CMS/HCC) (HCC) Start: 12-06-2024 End: 12-06-2024 Admission to same day surgery center Sydni Husain APPLICATIONS MANAGER - WELLNESS NURSE RN Work Phone: [facility] [place] Comment on above: Acute respiratory fa ilure with hypoxia (HCC) (Primary Dx); Tracheostomy dependence (HCC); S/P AVR; Peritonitis due to fungus (HCC); ESRD on hemodialysis (CMS/HCC) (HCC); 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, 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); History of abdominal surgery Start: 12-06-2024 End: 12-06-2024 ambulatory Sydni Walter Forrester CNP Work Phone: [facility] - [place] Start: 12-06-2024 End: 03-23-2025 [facility] hospital care/day 25 minutes Vincent Meek MD Work Phone: [facility] [place] Comment on above: Acute respiratory fa ilure with hypoxia (HCC) (Primary Dx); Ventilator dependent (HCC); Tracheostomy dependence (HCC); Pulmonary embolism, other, unspecified chronicity, unspecified whether acute cor pulmonale present (HCC); S/P AVR; ESRD on hemodialysis (CMS/HCC) (HCC) Start: 12-05-2024 End: 03-23-2025 [facility] hospital care/day 35 minutes Vincent Meek MD Work Phone: [facility] [place] Comment on above: Acute respiratory fa ilure with hypoxia (HCC) (Primary Dx); Tracheostomy dependence (HCC); Ventilator dependent (HCC); Pulmonary embolism, other, unspecified chronicity, unspecified whether acute cor pulmonale present (HCC); S/P AVR; ESRD on hemodialysis (CMS/HCC) (HCC) Start: 12-04-2024 End: 12-04-2024 Admission to same day surgery center Sydni Husain APRN [employer] Work Phone: [facility] Disease [facility] [place] Comment on above: Acute respiratory fa ilure with hypoxia (HCC) (Primary Dx); Tracheostomy dependence (HCC); S/P AVR; Peritonitis due to fungus (HCC); ESRD on hemodialysis ([facility]/HCC) (HCC); 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, 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); History of abdominal surgery Start: 12-04-2024 End: 12-04-2024 ambulatory Sydni Husain APRN [employer] Work Phone: [facility] Disease - [place] Comment on above: Atypical atrial flut ter (HCC) (Primary Dx) Start: 12-01-2024 End: 12-01-2024 Admission to same day surgery center Sydni Husain APRN [employer] Work Phone: [facility] [place] Comment on above: Acute respiratory fa ilure with hypoxia (HCC) (Primary Dx); Tracheostomy dependence (HCC); S/P AVR; Peritonitis due to fungus (HCC); ESRD on hemodialysis (CMS/HCC) (HCC); 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, 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); Leg DVT (deep venous thromboembolism), acute, left (HCC); History of abdominal surgery Start: 12-01-2024 End: 12-01-2024 ambulatory Jefferson Nathan MD Work Phone: [facility] Lung Nod[facility] Comment on above: Atypical atrial flut ter (HCC) (Primary Dx) Start: 12-01-2024 End: 12-01-2024 Patient encounter procedure Jefferson Nathan MD Work Phone: [facility]od[facility] Comment on above: Acute respiratory fa ilure with hypoxia (HCC) (Primary Dx); Tracheostomy dependence (HCC); Ventilator dependent (HCC); Pulmonary embolism, other, unspecified chronicity, unspecified whether acute cor pulmonale present (HCC); S/P AVR Start: 11-30-2024 End: 11-30-2024 Admission to same day surgery center Sydni Husain APRN - WELLNESS NURSE RN Work Phone: [facility] - [place] Comment on above: Acute respiratory fa ilure with hypoxia (HCC) (Primary Dx); Tracheostomy dependence (HCC); S/P AVR; Peritonitis due to fungus (HCC); ESRD on hemodialysis (CMS/HCC) (HCC); 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, 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); Leg DVT (deep venous thromboembolism), acute, left (HCC); History of abdominal surgery Start: 11-30-2024 End: 11-30-2024 ambulatory Sydni Husain APRN - WELLNESS NURSE RN Work Phone: [facility] [place] Comment on above: Acute respiratory fa ilure with hypoxia (HCC) (Primary Dx); Tracheostomy dependence (HCC); Ventilator dependent (HCC); Pulmonary embolism, other, unspecified chronicity, unspecified whether acute cor pulmonale present (HCC); S/P AVR; Tracheostomy dependent (HCC); Chronic bronchitis, unspecified chronic bronchitis type (HCC); ESRD on hemodialysis (CMS/HCC) (HCC) Start: 11-29-2024 End: 11-30-2024 Admission to same day surgery center Sydni Husain APRN - WELLNESS NURSE RN Work Phone: [facility] - [place] Comment on above: Peritonitis due to f ungus (HCC) (Primary Dx); History of abdominal surgery; S/P AVR; Ischemic ulcer of toe of left foot, 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); Leg DVT (deep venous thromboembolism), acute, left (HCC); Anemia, unspecified type Start: 11-29-2024 End: 11-30-2024 ambulatory Jefferson Nathan MD Work Phone: [facility] Pulmonary and Sleep Medicine [facility] Comment on above: Acute respiratory fa ilure with hypoxia (HCC) (Primary Dx); Atrial flutter, unspecified type (HCC); Pulmonary embolism, other, unspecified chronicity, unspecified whether acute cor pulmonale present (HCC); Ventilator dependent (HCC); Tracheostomy dependent (HCC); S/P AVR; Chronic bronchitis, unspecified chronic bronchitis type (HCC); ESRD on hemodialysis ([facility]/HCC) (HCC) Start: 11-28-2024 End: 11-29-2024 Telephone encounter Jefferson Nathan MD Work Phone: [facility] Pulmonary and Sleep Medicine [facility] Comment on above: Advice Only Start: 10-22-2024 End: 10-22-2024 ambulatory [facility] Start: 10-21-2024 End: 10-25-2024 ambulatory [facility] Start: 10-16-2024 End: 10-16-2024 Telephone encounter Enid Dumont APRN - WELLNESS NURSE RN Work Phone: [facility] Gastroenterology - [place] Comment on above: Care Coordination Start: 10-13-2024 End: 10-13-2024 Telephone encounter Lan Carpenter PA-C Work Phone: [facility] Start: 10-12-2024 End: 10-12-2024 Evaluation and management of inpatient Vincent Wilson MD Work Phone: [facility] Start: 10-03-2024 End: 10-03-2024 Emergency department patient visit LEILANI TRONCOSO [facility] Start: 10-03-2024 End: 10-03-2024 Subsequent hospital visit by physician [facility] Exam Room [address] [facility] [address] Comment on above: Arrived Start: 10-03-2024 End: 11-28-2024 Evaluation and management of inpatient LUCIANO MONTEMAYOR [facility] Start: 08-28-2024 End: 08-28-2024 ambulatory DARYN LOOMIS [facility] Start: 08-28-2024 End: 08-28-2024 Office outpatient visit 25 minutes Jr Shah MD Work Phone: [facility] Cardiology - [place] Comment on above: Paroxysmal A-fib (CM S/HCC) (HCC) (Primary Dx); Nonrheumatic aortic valve stenosis; Tobacco abuse; Alcohol use disorder in remission Start: 05-10-2024 Chart abstracting Alan Barroso RN [facility] Comment on above: Dialysis status upda te Start: 04-12-2024 Telephone encounter [facility] Work Phone: [facility] Start: 02-12-2024 Telephone encounter Jr Shah MD Work Phone: [facility] Comment on above: unable to contact pa tient unable to contact pa tient to schedule Start: 11-12-2023 End: 11-12-2023 Office outpatient visit 25 minutes Quiana Contreras APPLICATIONS MANAGER - WELLNESS NURSE RN Work Phone: [facility] Cardiology Comment on above: Nonrheumatic aortic valve stenosis (Primary Dx); Paroxysmal A-fib (CMS/HCC) (HCC); Primary hypertension; Calcification of abdominal aorta (HCC); Tobacco abuse; ESRD on hemodialysis (CMS/HCC) (HCC) Start: 10-14-2023 Telephone encounter Sasha weeks APPLICATIONS MANAGER - WELLNESS NURSE RN Work Phone: [facility] Cardiology Comment on above: Cancelled Appointmen t Start: 09-07-2023 Transcribe Orders Fransisco toro APPLICATIONS MANAGER Work Phone: [facility] Comment on above: Personal history of nicotine dependence (Primary Dx); Nicotine dependence, cigarettes, uncomplicated Start: 08-18-2023 Telephone encounter Quiana Leal dasia APPLICATIONS MANAGER - WELLNESS NURSE RN Work Phone: [facility] Cardiology Start: 08-16-2023 End: 08-17-2023 Evaluation and management of inpatient Dangelo Horne DO Work Phone: [facility] Comment on above: New onset a-fib (CMS /HCC) (HCC) (Primary Dx); Atrial fibrillation, persistent (HCC) Start: 05-01-2023 End: 05-01-2023 Emergency department patient visit Jese Frank MD Work Phone: [facility] ED Comment on above: Skin sore (Primary D x); ESRD (end stage renal disease) on dialysis (HCC) Start: 12-30-2021 Telephone encounter Giovani mckee MD Work Phone: [facility] Comment on above: Procedure please advise Start: 12-29-2021 ambulatory Rudy Painter MD Work Phone: Ambulatory Surgery Start: 12-29-2021 Telephone encounter Cecilia galo PA-C Work Phone: [facility] Comment on above: cecilia carlson Start: 12-25-2021 End: 12-25-2021 Patient encounter procedure [facility] Comment on above: Acute blood loss ane ruth (Primary Dx); Rectal bleeding Start: 09-15-2021 End: 09-15-2021 Subsequent hospital visit by physician Cindy Patel MD Work Phone: [facility] Cath & IR Lab Start: 10-17-2020 End: 10-17-2020 Subsequent hospital visit by physician Cindy Patel Work Phone: [facility] Cindy Dept Start: 03-13-2020 End: 03-13-2020 Subsequent hospital visit by physician [facility] E[facility] Comment on above: Preoperative testing [Z01.818] Start: 10-19-2019 End: 10-27-2019 Evaluation and management of inpatient Callie Nieves DO Work Phone: [facility] 1E MED SURG Comment on above: Acute kidney injury (HCC) (Primary Dx); Uncontrolled hypertension; Normocytic anemia; Angioedema, initial encounter; Hyperkalemia; Metabolic acidosis; Rectal bleeding Procedures Date Procedure Procedure Detail Performing Clinician Start: 04-17-2025 Comprehensive metabo lic panel Keiry Solares MD Work Phone: Start: 04-09-2025 Radex hand minimum 3 views [employer] PA-C Work Phone: Start: 04-09-2025 Basic metabolic pane l calcium total [employer] PA-C Work Phone: Start: 04-05-2025 Assay of troponin quantitative Barbara CRAVE Levy PA-C Work Phone: Start: 04-05-2025 Radiologic exam ches t 2 views Barbara CRAVE Levy PA-C Work Phone: Start: 04-05-2025 Basic metabolic pane l calcium total Barbara CRAVE Levy PA-C Work Phone: Start: 04-05-2025 Ecg [...] 03-15-2025 Non-invasive physiol ogic study extremity 3 roquels Rubi Sanon MD Work Phone: Start: 03-15-2025 [...] MD Work Phone: Start: 02-21-2025 Antibody screen ANTHONY HURTADO Comment on above: Performed By: #### L [id number] ####Recycling Coordinator: DOMENICA JARA ([phone])[facility] ([facility])[address] [place] [address] Start: 02-21-2025 C-reactive protein Karena Jett MD [...] Start: 01-28-2025 Blood count complete automated Yifan Longoriahuong Senioron DO Work Phone: Start: 01-27-2025 Thromboplastin time [...] Blood count complete automated Crystal D. Meranto APPLICATIONS MANAGER - WELLNESS NURSE RN Work Phone: Start: 01-21-2025 Glucose quantitative blood xcpt reagent strip Keerthi Denson MD Work Phone: Start: 01-21-2025 End: 01-21-2025 Glucose quantitative blood xcpt reagent strip Keerthi Denson MD Work Phone: Start: 01-21-2025 End: 01-21-2025 Basic metabolic panel calcium total Steve Lassiter MD Work Phone: Start: 01-20-2025 Blood count hematocrit Keerthi Denson MD Work Phone: Start: 01-20-2025 Ct angio abd&plvis c ntrst mtrl w/wo cntrst img Japheth Eitavandana Holt DO Work Phone: Start: 01-20-2025 Blood count hematocrit Keerthi Denson MD Work Phone: Start: 01-20-2025 Blood count hematocrit Keerthi Denson MD Work Phone: Start: 01-20-2025 Blood typing serolog ic abo Keerthi Denson MD Work Phone: Start: 01-20-2025 Basic [...] H/O: surgery History of abd ominal surgery Sydniartem Husain APPLICATIONS MANAGER - WELLNESS NURSE RN Work Phone: Start: 10-12-2024 Insj non-tunneled ce ntral venous cath age 5 yr/> Rudolph German MUNICIPAL BOND [employer]ADER Start: 10-12-2024 UT AN CENTRAL LINE T RIPLE LUMEN Rudolph German MUNICIPAL BOND TRADER Start: 10-12-2024 UT AN ELECTIVE ENDOTRACHEAL AIRWAY Rudolph German MUNICIPAL BOND TRADER Start: 10-12-2024 Us vasc access sits vsl patency ndl entry Rudolph German MUNICIPAL BOND TRADER Start: 10-12-2024 ANESTHESIA ARTERIAL LINE PLACEMENT Rudolph German MUNICIPAL BOND TRADER Start: 10-03-2024 Ct head/brain w/o contrast material [...] vaccination due to patient refusal Sasha Lemons APPLICATIONS MANAGER - WELLNESS NURSE RN Work Phone: Start: 08-17-2023 Echo tthrc r-t 2d w/wom-mode compl spec&colr d Earlene Irving MD Work Phone: Start: 08-17-2023 Thyrotropin [Units/volume] in Serum or Plasma Lan Carpenter PA-C Work Phone: Start: 08-17-2023 Basic metabolic pane l calcium total Earlene Irving MD Work Phone: Start: 08-16-2023 End: 08-16-2023 Basic metabolic panel calcium total Sha Granados PA-C Work Phone: Start: 08-16-2023 Radiologic exam ches t single view Sha Quane PA-C Work Phone: Start: 08-16-2023 Ecg routine ecg w/le ast 12 lds i&r only Dangelo Horne DO Work Phone: Start: 10-17-2020 Special treatments a nd procedures Cindy Patel Work Phone: Start: 03-13-2020 Ecg routine ecg w/le ast 12 lds trcg only w/o i&r [facility] Provider Start: 03-13-2020 BASIC METABOLIC PNL Tati farooq ([employer] [facility]) Zachary Work Phone: Start: 03-13-2020 CBC Darya ([facility] [employer] [facility]) Zachary Work Phone: Start: 03-13-2020 MDRD GFR Darya ([facility] [facility]) Zachary Work Phone: Start: 03-13-2020 PROTHROMBIN TIME/PT Tati farooq ([employer] [employer] [facility]) Zachary Work Phone: Start: 10-27-2019 Basic metabolic [...] Basic metabolic panel calcium total Delon Jessica APPLICATIONS MANAGER - WELLNESS NURSE RN Work Phone: Start: 10-22-2019 GLOMERULAR BASEMENT MEMBRANE (GBM) ANTIBODY IGG Randolph Liz MD Work Phone: Start: 10-21-2019 Radiologic exam abdo men 1 view Brett Encarnacion MD Work Phone: Start: 10-21-2019 End: 10-21-2019 Dup-scan artl shayan abdl/pel/scrot&/rpr orgn com Brett Encarnacion MD Work Phone: Start: 10-21-2019 Basic metabolic pane l calcium total Delon Jessica APPLICATIONS MANAGER - WELLNESS NURSE RN Work Phone: Start: 10-20-2019 Basic metabolic pane l calcium total Brett Encarnacion MD Work Phone: Start: 10-20-2019 TRANSFUSE RED BLOOD CELLS Delon Hendersonson APPLICATIONS MANAGER - WELLNESS NURSE RN Work Phone: Start: 10-20-2019 TRANSFUSE RED BLOOD CELLS Delon Hendersonson APPLICATIONS MANAGER - WELLNESS NURSE RN Work Phone: Start: 10-20-2019 Blood count hemoglobin Delon Jessica APPLICATIONS MANAGER - WELLNESS NURSE RN Work Phone: Start: 10-20-2019 Basic metabolic pane l calcium total Delon Hendersonson APPLICATIONS MANAGER - WELLNESS NURSE RN Work Phone: Start: 10-20-2019 RBC morphology findi ng Nom (Bld) Delon Jessica APPLICATIONS MANAGER - WELLNESS NURSE RN Work Phone: Start: 10-19-2019 Basic metabolic pane [...] Phone: Comment on above: Test Performed by [facility], [address] [place] [address] [place] [address] Start: 10-19-2019 End: 10-19-2019 ADD ON LAB [...] History of abdom inal surgery Sydni Husain APPLICATIONS MANAGER - WELLNESS NURSE RN Work Phone: H/O: surgery History of abdom inal surgery Sydni Husain APPLICATIONS MANAGER - WELLNESS NURSE RN Work Phone: H/O: surgery History of abdom inal surgery Sydni Husain APPLICATIONS MANAGER - WELLNESS NURSE RN Work Phone: H/O: surgery History of abdom inal surgery Sydni Husain APPLICATIONS MANAGER - WELLNESS NURSE RN Work Phone: H/O: surgery History of abdom inal surgery Sydni Husain APPLICATIONS MANAGER - WELLNESS NURSE RN Work Phone: H/O: surgery History of abdom inal surgery Sydni Husain APPLICATIONS MANAGER - WELLNESS NURSE RN Work Phone: Vaccine refused by patient Missed vaccination due to patient refusal Palak You Cuca Work Phone: Plan of Treatment Date Care Activity Detail Author Start: 2040 RSV Immunization for Adults (1 - 1-dose 75+ series) RSV Immunization for Adults (1 - 1-dose 75+ series) [facility] Start: 2040 [facility] Start: 01-24-2035 Screening for malignant neoplasm of colon [facility] Start: 03-14-2030 Lipid panel Lipid Panel [facility] Start: 04-17-2026 Creatinine measurement Creatinine Level [facility] Start: 04-17-2026 Potassium measurement Potassium Level [facility] Start: 04-12-2026 Screening for malignant neoplasm of lung Lung Cancer Screening [facility] Start: 04-09-2026 Creatinine measurement Creatinine Level [facility] Start: 04-09-2026 Potassium measurement Potassium Level [facility] Start: 04-05-2026 Creatinine measurement Creatinine Level [facility] Start: 04-05-2026 Potassium measurement Potassium Level [facility] Start: 03-21-2026 Creatinine measurement Creatinine Level [facility] Start: 03-21-2026 Potassium measurement Potassium Level [facility] Start: 03-13-2026 Screening for malignant neoplasm of lung Lung Cancer Screening [facility] Start: 03-05-2026 Creatinine measurement [facility] Start: 03-05-2026 Potassium measurement [facility] Start: 02-23-2026 Creatinine measurement Creatinine Level [facility] Start: 02-23-2026 Echocardiography Echocardiogram [facility] Start: 02-23-2026 Potassium measurement Potassium Level [facility] Start: 02-23-2026 [facility] Start: 02-12-2026 Creatinine measurement Creatinine Level [facility] Start: 02-12-2026 Potassium measurement Potassium Level [facility] Start: 02-01-2026 Creatinine measurement [facility] Start: 02-01-2026 Potassium measurement [facility] Start: 01-16-2026 Creatinine measurement Creatinine Level [facility] Start: 01-16-2026 Potassium measurement Potassium Level [facility] Start: 01-15-2026 Creatinine measurement Creatinine Level [facility] Start: 01-15-2026 Potassium measurement Pot[facility] Level [facility] Start: 01-12-2026 Creatinine measurement Creatinine Level [facility] Start: 01-12-2026 Potassium measurement Potassium Level [facility] Start: 01-08-2026 Creatinine measurement Creatinine Level [facility] Start: 01-08-2026 Potassium measurement Potassium Level [facility] Start: 01-05-2026 Potassium measurement Potassium Level [facility] Start: 01-01-2026 Creatinine measurement Creatinine Level [facility] Start: 01-01-2026 Potassium measurement Potassium Level [facility] Start: 12-30-2025 Creatinine measurement Creatinine Level [facility] Start: 12-30-2025 Potassium measurement Potassium Level [facility] Start: 12-25-2025 Creatinine measurement Creatinine Level [facility] Start: 12-25-2025 Potassium measurement Potassium Level [facility] Start: 12-22-2025 Creatinine measurement Creatinine Level [facility] Start: 12-22-2025 Potassium measurement Potassium Level [facility] Start: 12-18-2025 Creatinine measurement Creatinine Level [facility] Start: 12-18-2025 Potassium measurement Potassium Level [facility] Start: 12-15-2025 Creatinine measurement Creatinine Level [facility] Start: 12-15-2025 Potassium measurement Potassium Level [facility] Start: 12-11-2025 Creatinine measurement Creatinine Level [facility] Start: 12-11-2025 Potassium measurement Potassium Level [facility] Start: 12-04-2025 Creatinine measurement Creatinine Level [facility] Start: 12-04-2025 Potassium measurement Potassium Level [facility] Start: 12-01-2025 Creatinine measurement Creatinine Level [facility] Start: 12-01-2025 Potassium measurement Pot[facility] Level [facility] Start: 11-30-2025 Creatinine measurement Creatinine Level [facility] Start: 11-30-2025 Potassium measurement Potassium Level [facility] Start: 11-29-2025 Creatinine measurement Creatinine Level [facility] Start: 11-29-2025 Potassium measurement Potassium Level [facility] Start: 11-24-2025 Echocardiography Echocardiogram [facility] Start: 11-24-2025 [facility] Start: 2025 RSV Immunization aged 60 or older (1 - 1-dose 60+ series) RSV Immunization aged 60 or older (1 - 1-dose 60+ series) [facility] Start: 11-03-2025 Creatinine measurement Creatinine Level [facility] Start: 11-03-2025 Potassium measurement Potassium Level [facility] Start: 11-02-2025 Echocardiography Echocardiogram [facility] Start: 10-11-2025 Screening for malignant neoplasm of lung [facility] Start: 05-28-2025 Influenza vaccination [facility] Start: 05-28-2025 [facility] Start: 04-26-2025 End: 04-26-2025 Patient encounter procedure 04/26/2025 9:20 AM EDT Office Visit [facility] [place] [address] [place] [phone] Yasemin Lucas, APPLICATIONS MANAGER - WELLNESS NURSE RN [address] [place] [address] [facility] [place] Start: 04-12-2025 End: 04-12-2025 Patient encounter procedure [facility] Start: 04-05-2025 End: 04-05-2025 ambulatory [facility] Start: 04-05-2025 End: 04-05-2025 Patient encounter procedure 04/05/2025 1:00 PM EDT Office Visit [facility] [address] [place] [address] Sophia Lara, APPLICATIONS MANAGER - WELLNESS NURSE RN [address] [place] [address] [facility] Neuroscience [facility] Start: 04-03-2025 End: 04-03-2025 ambulatory [facility] Cardiology - [place] Start: 04-03-2025 End: 04-03-2025 Patient encounter procedure 04/03/2025 10:45 AM EDT Office Visit [facility] Cardiology - [place] [address] [place] [phone] Zoe Valadez, APPLICATIONS MANAGER - WELLNESS NURSE RN [address] [facility] [place] [phone] [facility] Cardiology [facility] Start: 03-26-2025 End: 02-23-2026 CT Chest WO contrast CT chest wo IV contrast Imaging Routine Hemoptysis Expected: 03/26/2025, Expires: 02/23/2026 [facility] Work Phone: Comment on above: Expected: 03/26/2025, Expires: Start: 02-15-2025 End: 02-15-2025 ambulatory [facility] Start: 02-15-2025 End: 02-15-2025 Patient encounter procedure [facility] Start: 02-14-2025 End: 02-14-2025 ambulatory [facility] Infectious Disease - [place] Start: 02-14-2025 End: 02-14-2025 Patient encounter procedure [facility] Special [facility] Start: 12-25-2024 End: 12-25-2024 Patient encounter procedure 12/25/2024 10:00 AM EDT Office Visit [facility] [address] [place] [address] Sophia Lara, APPLICATIONS MANAGER - WELLNESS NURSE RN [address] [place] [address] [facility] Start: 12-18-2024 End: 12-18-2024 Telemedicine consultation with patient 12/18/2024 1:00 PM EDT Telemedicine [facility] Cardiovascular Thoracic Surgery - [place] [address] [place] [phone] Osiris Terrell, APPLICATIONS MANAGER - WELLNESS NURSE RN [address] [place] [address] [facility] Cardiovascular Thoracic Surgery - [place] Start: 10-09-2024 End: 10-09-2024 Patient encounter procedure 10/09/2024 3:00 PM EST Appointment [facility] [address] [facility] [address] [place] [address] Jr Shah MD [address] [facility] [address] [place] [address] [facility] Start: 09-27-2024 Medicare Advantage Annual Wellness Visit Medicare Advantage Annual Wellness Visit [facility] Start: 09-27-2024 [facility] Start: 09-13-2024 End: 09-13-2024 Patient encounter procedure 09/13/2024 3:00 PM EST Appointment [facility] [address] [facility] [address] [place] [phone] Jr Shah MD [address] [facility] [address] [place] [address] [facility] Start: 09-11-2024 End: 08-28-2026 Heart Transthoracic Transthoracic echocardiogram (TTE) complete with contrast, bubble, strain, and 3D PRN CV Echocardiography Routine Nonrheumatic aortic valve stenosis Expected: 09/11/2024 (Approximate), Expires: 08/28/2026 [facility] Work Phone: Comment on above: Expected: 09/11/2024 (Approximate), Expi res: 08/28/2026 Start: 08-17-2024 Thyroid stimulating hormone measurement TSH Level [facility] Start: 05-28-2024 COVID-19 Vaccine ( season) COVID-19 Vaccine ( season) [facility] Start: 05-28-2024 Influenza vaccination [facility] Start: 05-28-2024 [facility] Start: 02-07-2024 End: 02-07-2024 Patient encounter procedure [facility] Start: 11-29-2023 End: 11-29-2023 Patient encounter procedure 11/29/2023 3:00 PM EST Appointment [facility] [address] [place] [address] Fransisco Pineda, APPLICATIONS MANAGER [address] [place] [phone] [facility] CT Imaging Start: 11-24-2023 End: 11-24-2023 Patient encounter procedure 11/24/2023 1:30 PM EST Office Visit [facility] Dermatology [address] [facility] [address] [place] [phone] Madhuri De La Rosa MD [address] [facility] [place], [place] [id number] [facility] Start: 09-27-2023 Behavioral Health Screening Behavioral Health Screening [facility] Start: 09-27-2023 Medicare Advantage Annual Wellness Visit Medicare Advantage Annual Wellness Visit [facility] Start: 09-07-2023 End: 09-07-2024 CT Chest for screening WO contrast CT lung screening low dose Imaging Routine Nicotine dependence, cigarettes, uncomplicated Personal history of nicotine dependence Expected: 09/07/2023, Expires: 09/07/2024 [facility] Work Phone: Comment on above: Expected: 09/07/2023, Expires: Start: 05-28-2023 COVID-19 Vaccine ( season) COVID-19 Vaccine ( season) [facility] Start: 05-28-2023 Influenza vaccination Influenza Vaccine (#1) [facility] Start: 05-10-2023 DIABETES SCREEN DIABETES SCREEN [facility] Start: 05-10-2023 Diabetes Screening Diabetes Screening [facility] Start: 03-13-2023 DIABETES SCREEN DIABETES SCREEN [facility] Start: 05-28-2022 Influenza [facility] Start: 10-22-2021 End: 10-22-2021 Patient encounter procedure 10/22/2021 Office Visit Dermatology Madhuri De La Rosa MD [address] [facility] [place], [place] [phone] [facility] Start: 05-28-2021 Influenza vaccination [facility] Start: 05-20-2021 Hepatitis B Vaccines (1 of 1 - Risk Dialysis 4-dose series) Hepatitis B Vaccines (1 of 1 - Risk Dialysis 4-dose series) [facility] Start: 05-20-2021 [facility] Start: 05-10-2021 HEMOGLOBIN/HEMATOCRIT HEMOGLOBIN/HEMATOCRIT [facility] Start: 05-10-2021 SERUM CREATININE SERUM CREATININE [facility] Start: 12-08-2020 Annual Wellness Visit (AWV) Annual Wellness Visit (AWV) [facility] Start: 2020 PROSTATE CANCER SCREENING DISCUSSION PROSTATE CANCER SCREENING DISCUSSION [facility] Start: 2020 Prostate specific antigen measurement Prostate Cancer Screening Discussion [facility] Start: 11-12-2020 End: 11-12-2020 Office Visit 11/12/2020 Office Visit Dermatology Madhuri De La Rosa MD [address] [facility], [address] [place] [address] [phone] [facility] Start: 10-19-2020 Screening for malignant neoplasm of colon [facility] Start: 05-28-2020 Influenza vaccination [facility] Start: 05-28-2019 Influenza vaccination Flu vaccine (#1) [facility] Work Phone: Start: 2015 Screening for malignant neoplasm of colon Colon cancer screen colonoscopy [place], [place] Start: 2015 Shingles Vaccine (1 of 2) Shingles Vaccine (1 of 2) [facility] Start: 2015 SHINGRIX VACCINE (1 of 2) SHINGRIX VACCINE (1 of 2) [facility] Start: 2015 Tuberculosis screening COLORECTAL CANCER SCREENING,SEE MODIFIER [facility] Start: 2015 Zoster Vaccines (1 of 2) Zoster Vaccines (1 of 2) [facility] Start: 2015 [facility] Start: 2010 COLOGUARD (FIT-DNA) COLOGUARD (FIT-DNA) [facility] Start: 2010 Colonoscopy COLONOSCOPY [facility] Start: 2010 COLORECTAL CANCER SCREENING COLORECTAL CANCER SCREENING [facility] Start: [address] COLONOGRAPHY [facility] Start: 2010 FECAL OCCULT BLOOD FECAL OCCULT BLOOD [facility] Start: 2010 Screening for malignant neoplasm of colon [facility] Start: 2010 SIGMOIDOSCOPY SIGMOIDOSCOPY [facility] Start: 2005 Diabetes screen Diabetes screen [place], [place] Start: 2005 Lipid panel Lipid screen [facility] Start: 2000 Diabetes screen Diabetes screen [facility] Start: 2000 Lipid panel Lipid Screening [facility] Start: 2000 LIPID SCREEN LIPID SCREEN [facility] Start: 1984 DTaP/Tdap/Td vaccine (1 - Tdap) DTaP/Tdap/Td vaccine (1 - Tdap) [facility] Start: 1984 DTaP/Tdap/Td Vaccines (1 - Tdap) DTaP/Tdap/Td Vaccines (1 - Tdap) [facility] Start: 1984 Pneumococcal Vaccine: 50+ Years (1 of 2 - PCV) Pneumococcal Vaccine: 50+ Years (1 of 2 - PCV) [facility] Start: 1984 Urine microalbumin profile [facility] Start: 1984 [facility] Start: 1983 ANNUAL PCP TEAM CHRONIC DISEASE VISIT ANNUAL PCP TEAM CHRONIC DISEASE VISIT [facility] Start: 1983 Anxiety Screening Anxiety Screening [facility] Start: 1983 Depression Screening Depression Screening [facility] Start: 1983 Diabetes mellitus screening [facility] Start: 1983 HEPATITIS C SCREENING HEPATITIS C SCREENING [facility] Start: 1983 HIV SCREENING HIV SCREENING [facility] Start: 1983 HIV screening HIV Screening [facility] Start: 1977 Adult depression screening assessment DEPRESSION SCREENING [facility] Start: 1977 [facility] Start: 1971 Pneumococcal 0-64 years Vaccine (1 of 1 - PPSV23) Pneumococcal 0-64 years Vaccine (1 of 1 - PPSV23) [place], [place] Start: 1971 Pneumococcal 0-64 years Vaccine (1 of 2 - PPSV23) Pneumococcal 0-64 years Vaccine (1 of 2 - PPSV23) [facility] Start: 1971 Pneumococcal vaccination Pneumococcal Vaccine (1 of 2 - PCV) [facility] Start: 1971 Pneumococcal Vaccine: Pediatrics (0 to 5 Years) and At-Risk Patients (6 to 64 Years) (1 - PCV) Pneumococcal Vaccine: Pediatrics (0 to 5 Years) and At-Risk Patients (6 to 64 Years) (1 - PCV) [facility] Start: 1971 Pneumococcal Vaccine: Pediatrics (0 to 5 Years) and At-Risk Patients (6 to 64 Years) (1 of 2 - PCV) Pneumococcal Vaccine: Pediatrics (0 to 5 Years) and At-Risk Patients (6 to 64 Years) (1 of 2 - PCV) [facility] Start: 1970 COVID-19 Vaccine (1) COVID-19 Vaccine (1) [facility] Start: 1966 MMR Vaccines (1 of 1 - Standard series) MMR Vaccines (1 of 1 - Standard series) [facility] Start: 1966 [facility] Start: 05-17-1966 COVID-19 Vaccine (#1) COVID-19 Vaccine (#1) [facility] Start: 05-17-1966 Examination of skin Derm Melanoma Skin Check [facility] Start: 1965 Lipid panel [facility] Start: 1965 Medicare Advantage Annual Wellness Visit (AWV) Medicare Advantage Annual Wellness Visit (AWV) [facility] Start: 1965 Screening for malignant neoplasm of colon [facility] REVENTIVE Basic metabolic 2000 panel - Serum or Plasma Basic Metabolic Panel Lab Routine Daily until discontinued starting 10/23/2019, 5 completed [employer] Work Phone: Comment on above: Daily until discontinued starting 2019, 5 completed CBC W Auto Different ial panel - Blood CBC Auto Differential Lab Routine Daily until discontinued starting 10/23/2019, 5 completed [facility] Work Phone: Comment on above: Daily until discontinued starting 2019, 5 completed End: 12-25-2022 COLONOSCOPY DIAGNOSTIC COLONOSCOPY DIAGNOSTIC Endoscopy Routine Acute blood loss anemia Rectal bleeding 1 Occurrences starting 12/25/2021 until 12/25/2022 [facility] Work Phone: Comment on above: 1 Occurrences starting 12/25/2021 until 12/25/2022 End: 12-30-2022 COLONOSCOPY DIAGNOSTIC COLONOSCOPY DIAGNOSTIC Endoscopy Routine Other iron deficiency anemia Rectal bleeding 1 Occurrences starting 12/30/2021 until 12/30/2022 [facility] Work Phone: Comment on above: 1 Occurrences starting 12/30/2021 until 12/30/2022 End: 04-12-2025 CT Chest WO contrast [employer] Work Phone: Comment on above: Once for 1 Occurrences starting 04/12/20 until 04/12/2025 Electrocardiogram EKG BIC 2019 3:36 PM EDT [facility] End: 01-22-2025 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 [employer] Work Phone: End: 10-19-2019 Hemodialysis inpatient Hemodialysis inpatient Dialysis Routine One Time for 1 Occurrences starting 10/19/2019 until 10/19/2019 [employer] Work Phone: Comment on above: One Time for 1 Occurrences starting 09/28 until 10/19/2019 End: 10-21-2019 Hemodialysis inpatient Hemodialysis inpatient Dialysis Routine One Time for 1 Occurrences starting 10/21/2019 until 10/21/2019 [employer] Work Phone: Comment on above: One Time for 1 Occurrences starting 09/28 until 10/21/2019 End: 10-23-2019 Hemodialysis inpatient Hemodialysis inpatient Dialysis Routine One Time for 1 Occurrences starting 10/23/2019 until 10/23/2019 [employer] Work Phone: Comment on above: One Time for 1 Occurrences starting 09/28 until 10/23/2019 Hemodialysis inpatient Hemodialy sis inpatient Dialysis Routine Every MWF until discontinued starting 10/27/2019 [employer] Work Phone: Comment on above: Every MWF until discontinued starting End: 01-26-2025 Hemoglobin [Mass/volume] in Blood [employer] Work Phone: End: 02-21-2025 Legionella and Streptococcus Urine Antigen [employer] Work Phone: Magnesium [Mass/volu me] in Serum or Plasma MAGNESIUM Lab Routine Daily until discontinued starting 10/23/2019, 5 completed [employer] Work Phone: Comment on above: Daily until discontinued starting 2019, 5 completed End: 01-22-2025 Peripheral blood smear [employer] End: 01-22-2025 Peripheral Blood Smear [facility] REVENTIVE Peripheral blood smear [facility] REVENTIVE Peripheral Blood Smear [facility] REVENTIVE Phosphate [Mass/volu me] in Serum or Plasma Phosphorus Lab Routine Daily until discontinued starting 10/23/2019, 5 completed [facility] Work Phone: Comment on above: Daily until discontinued starting 2019, 5 completed End: 09-15-2021 Special treatments and procedures [facility] Work Phone: Comment on above: Once for 1 Occurrences starting 09/15/20 until 09/15/2021 End: 10-26-2019 Surgical Pathology Surgical Pathology Lab STAT Once for 1 Occurrences starting 10/26/2019 until 10/26/2019 [email or web address] Work Phone: Comment on above: Once for 1 Occurrences starting 10/26/19 until 10/26/2019 Surgical Pathology Surgical Path ology Lab STAT 10/26/2019 10:00 AM EST [employer] Work Phone: End: 02-21-2025 Urine Hold Cup [facility] REVENTIVE [facility] Immunizations Immunization Date Immunization Notes Care Provider Fa [facility] 05-20-2020 hepatitis B vaccine, unspecified formulation Jese Frank MD Work Phone: [facility] REVENT[facility] 01-19-2020 hepatitis B vaccine, unspecified formulation Jese Frank MD Work Phone: [facility] 12-19-2019 hepatitis B vaccine, unspecified formulation Jese Frank MD Work Phone: [facility] 11-15-2019 hepatitis B vaccine, unspecified formulation Jese Frank MD Work Phone: [facility] REVENTIVE Payers Date Payer Category Payer Self-pay 2023 Medicare HMO [id number] 2023 Medicare [id number] 2022 Medicaid HMO [id number] 2022 Medicaid [id number] 2020 Medicaid [id number] 2020 Medicare [id number] 2020 Medicare [id number] 2020 Unknown [id number] 2020 Medicaid MEDICAID [facility] MEDICAID [id number] 2020-Present Medicaid [id number] 2019 Medicare MEDICARE MEDICAR E A AND B [id number] 2019-Present [place] Medicare [id number] Unknown [id number] Unknown [id number] Unknown [id number] Unknown [id number] Unknown [id number] Unknown [id number] Unknown [id number] Unknown [id number] Unknown [id number] Unknown [id number] Unknown [id number] Unknown [id number] Social History Date Type Detail Facility Start: 1993 End: 03-15-2025 Tobacco smoking status OKIS Current every day smoker [facility] Start: 1993 History of tobacco use Cigarette Smoker [facility] Work Phone: Start: 03-13-2020 End: 03-13-2025 Cigarettes smoked current (pack per day) - Reported [facility] Work Phone: Start: 03-13-2020 End: 03-15-2025 Tobacco use and exposure Never used [facility] Start: 03-13-2020 End: 08-16-2023 Alcohol intake Current drinker of alcohol (finding) [facility] Work Phone: Start: 1965 Sex Assigned At Not on file [facility] Work Phone: Start: 12-15-2021 End: 05-01-2023 Exposure to SARS-CoV-2 (event) Not sure [facility] Start: 10-19-2019 Alcohol Comment on weekends [facility] Work Phone: Start: 12-25-2021 End: 04-17-2025 Alcohol intake Ex-drinker (finding) [facility] Start: 1965 Sex Assigned At Male [facility] Start: 05-01-2023 End: 03-13-2025 Alcohol Use Disorder Identification Test - Consumption [AUDIT-C] [facility] How often to you hav e a drink containing alcohol? Never [facility] How many standard dr inks containing alcohol do you have on a typical day? Patient does not drink [facility] Start: 11-15-2020 Gender identity Identifies as male gender (finding) [facility] Start: 08-10-2020 Sexual orientation Heterosexual (finding) [facility] Start: 04-27-2022 Sex Male (finding) [facility] History of tobacco use Passive smoker [facility] Start: 10-13-2024 Tobacco Comment Started at 28, 3 PPD, tapered down to 1 PPD in 2020 after quitting drinking. 10/27/24 [facility] Tobacco smoking stat us OKIS Unknown if ever smoked [facility] Work Phone: Start: 02-20-2025 Tobacco smoking status NHIS Ex-smoker [facility] Start: 1993 History of tobacco use Current smoker [facility] How often do you nee d to have someone help you when you read instructions, pamphlets, or other written material from your doctor or pharmacy [SILS] Sometimes [facility] Has the Smart [employer], or water Any.DO threatened to shut off services in your home in past 12Mo No [facility] Do you feel stress - tense, restless, nervous, or anxious, or unable to sleep at night because your mind is troubled all the time - these days [OSQ] To some extent [facility] (I/We) worried wheth er (my/our) food would run out before (I/we) got money to buy more. Never true [facility] Medical Equipment Procedure Code Equipment Code Equipment Origin al Text Equipment Identifier Dates [id number] Start: 10-12-2024 [id number] Start: 10-09-2024 [id number] Start: 10-14-2024 [id number] Start: 10-14-2024 [id number] Start: 10-14-2024 [id number] Start: 10-14-2024 [id number] Start: 10-14-2024 [id number] Start: 10-14-2024 [id number] Start: 10-14-2024 [id number] Start: 11-03-2024 [id number] Start: 01-30-2025 Functional Status Date Assessment Result Facility 03-13-2025 Total score [AUDIT-C] 0 03/13/20 8:25 AM Karo Sultana RN [facility] Clinical Notes 10-24-2019 to 04-17-2025 Sarina Granado RN - 04/17/2025 1:25 PM Khurram Granado RN - 04/17/2025 1:25 PM Nydia Palencia RN - 04/17/2025 10:13 AM EDTDischarge InstructionsAttachmentsDischarge Instructions Note Date & Type Note Facility 04-17-2025 Emergency department Note Report called to [facility]. [facility] 04-17-2025 Emergency department Note Report called to [facility]. PIV placed, blood collected for lab work, pt states it hurts and he does not want an PIV left in, If I leave it he will rip it out. PIV Dc'd documented in this encounter [facility] 04-17-2025 Hospital Discharg e instructions Keiry Solares [...] Do When Your INR Is Too High (Libyan)documented in this encounter [facility] 04-17-2025 Emergency department Note PIV placed, blood collected for lab work, pt states it hurts and he does not want an PIV left in, If I leave it he will rip it out. PIV Dc'd [facility] 04-11-2025 Note At this time patient s appointment is cancelled due to insurance being a HMO, there is no referral on file. Provided fax number once received will contact to schedule. Please advise [facility] 04-11-2025 Telephone encount er Note At this time patients appointment is cancelled due to insurance being a HMO, there is no referral on file. Provided fax number once received will contact to schedule. Please advise [facility] 04-11-2025 Miscellaneous Notes Formattin g of this [...] Medication Name: n/a documented in this encounter [facility] 04-11-2025 Telephone encount er Note Scheduled next avail with Dr. Mata. [facility] 04-11-2025 Telephone encount er Note Name of Caller: Sabino Contact Reason for Appointment: Sabino requesting to schedule patient appointment for podiatry. Please advise. Office Name: Ortho Medication Refills need, if any: n/a Medication Name: n/a [facility] 04-09-2025 Emergency department Note Consuelo Johnson here to transport pt back to facility. [facility] 04-09-2025 Emergency department Note Consuelo Johnson here [...] to the emergency department via EMS from [facility] for evaluation of hyperkalemia. Patient states that [...] who presents to the emergency department from [facility] with concerns for hyperkalemia. Patient reports they [...] signs. FINAL IMPRESSION 1. ESRD on hemodialysis ([facility]) ([facility]) 2. Contusion of dorsum of right hand DISPOSITION Discharge 04/09/2025 01:35:38 PM Shared decision making preformed. PATIENT REFERRED TO: [facility] [address] [place] [phone] As needed, If symptoms worsen (Comment: [...] History: Diagnosis Date Acute renal failure (ARF) ([facility]) 10/19/2019 Anemia 12/30/2021 Calcification of abdominal aorta ([facility]) 10/08/202309/[address] abd Diverticulosis 10/08/2023 ESRD on hemodialysis ([facility]) ([facility]) 10/26/2019 Hemodialysis patient ([facility]) ([facility]) HTN (hypertension) 12/01/2022 Hypertension IgA nephropathy IgA nephropathy determined by biopsy of kidney 10/26/2019 Missed vaccination due to patient refusal 10/08/2023 Has a number of non-scientific based beliefs which interfere with his understanding and acceptance of the medical benefit of vaccination. Nonrheumatic aortic valve stenosis 10/08/2023 Paroxysmal A-fib ([facility]) ([facility]) 08/18/2023 Tobacco abuse 10/08/2023 [2] Past Surgical History: Procedure Laterality Date APPENDECTOMY CARDIAC CATHETERIZATION N/A 10/09/2024 Performed by Bob Watson MD at [facility] Cardiac Cath/EP Lab CARDIAC CATHETERIZATION Bilateral 11/01/2024 Performed by Bob Watson MD at [facility] Cardiac Cath/EP Lab CARDIAC CATHETERIZATION N/A 11/01/2024 Performed by Bob Watson MD at [facility] Cardiac Cath/EP Lab COLONOSCOPY N/A 01/24/2025 Performed by Chadd Davis MD at [facility] ENDOSCOPY FISTULAGRAM (HISTORICAL) Left 09/15/2021 LEFT UPPER [...] 0 min Stress: Stress Concern Present (02/21/2025) [employer] [place] [employer] - Occupational Stress Questionnaire Feeling of Stress : To some extent Social Connections: Unknown (02/21/2025) Social Connection and Isolation Panel [NHANES] Frequency of Communication with Friends and Family: More than three times a week Frequency of Social Gatherings with Friends and Family: Patient declined Attends Druze Services: Patient declined Active Member of Clubs [...] PA-C 04/09/25 1400 documented in this encounter [facility] 04-09-2025 Hospital Discharg e instructions Yari Santos [...] change or worsen. documented in this encounter [facility] 04-09-2025 Physician Emergen cy department Note EMERGENCY [...] to the emergency department via EMS from [facility] for evaluation of hyperkalemia. Patient states that [...] who presents to the emergency department from [facility] with concerns for hyperkalemia. Patient reports they [...] signs. FINAL IMPRESSION 1. ESRD on hemodialysis ([facility]) ([facility]) 2. Contusion of dorsum of right hand DISPOSITION Discharge 04/09/2025 01:35:38 PM Shared decision making preformed. PATIENT REFERRED TO: [facility] [address] [place] [phone] As needed, If symptoms worsen (Comment: [...] History: Diagnosis Date Acute renal failure (ARF) ([facility]) 10/19/2019 Anemia 12/30/2021 Calcification of abdominal aorta ([facility]) 10/08/202309/[address] abd Diverticulosis 10/08/2023 ESRD on hemodialysis ([facility]) ([facility]) 10/26/2019 Hemodialysis patient ([facility]) ([facility]) HTN (hypertension) 12/01/2022 Hypertension IgA nephropathy IgA nephropathy determined by biopsy of kidney 10/26/2019 Missed vaccination due to patient refusal 10/08/2023 Has a number of non-scientific based beliefs which interfere with his understanding and acceptance of the medical benefit of vaccination. Nonrheumatic aortic valve stenosis 10/08/2023 Paroxysmal A-fib ([facility]) ([facility]) 08/18/2023 Tobacco abuse 10/08/2023 [2] Past Surgical History: Procedure Laterality Date APPENDECTOMY CARDIAC CATHETERIZATION N/A 10/09/2024 Performed by Bob Watson MD at [facility] Cardiac Cath/EP Lab CARDIAC CATHETERIZATION Bilateral 11/01/2024 Performed by Bob Watson MD at [facility] Cardiac Cath/EP Lab CARDIAC CATHETERIZATION N/A 11/01/2024 Performed by Bob Watson MD at [facility] Cardiac Cath/EP Lab COLONOSCOPY N/A 01/24/2025 Performed by Chadd Davis MD at [facility] ENDOSCOPY FISTULAGRAM (HISTORICAL) Left 09/15/2021 LEFT UPPER ARM HX AV FISTULA CREATION IR EMBOLIZATION 10/14/2024 IR EMBOLIZATION 10/14/2024 [facility] SPECIAL PROCEDURES IR FISTULAGRAM 08/07/2022 IR FISTULAGRAM [...] 0 min Stress: Stress Concern Present (02/21/2025) [employer] [place] [employer] - Occupational Stress Questionnaire Feeling of Stress : To some extent Social Connections: Unknown (02/21/2025) Social Connection and Isolation Panel [NHANES] Frequency of Communication with Friends and Family: More than three times a week Frequency of Social Gatherings with Friends and Family: Patient declined Attends [employer]ze Services: Patient declined Active Member of Clubs [...] Year: No Yari Santos PA-C 04/09/25 1400 [facility] 04-05-2025 Hospital Discharg e steven Mckeon PA-C - 04/05/2025 5:13 PM EDT [...] follow-up as recommended. documented in this encounter [facility] 04-05-2025 Nurse Note Patient Name: Jun Snyder Patient : 1965 Acct: [id number] Date of Admission: 04/05/2025 Room/Bed: Code Status: [...] (0) 3 Regular None (Room air) Clear;Diminished [place];Ecchymosis Warm;Dry Soft Present pt consents to dialysis [...] - Before each treatment: Dialysis Machine No.: [id number] RO Machine Number: [id number] Dialyzer Lot No.: [id number] Tubing Lot Number: [id number] [employer] Secure: Yes Venous Parameters Set: Yes Arterial Parameters Set: Yes NS Bag: Yes Saline Line Double Clamped: Yes Dialyzer: Nipro Prime Volume (mL): 200 mL RO Machine Number: [id number] RO Machine Log Sheet Completed: Yes Machine Alarm Self Test: Completed, Passed (1351) (04/05/25 1351) Air Foam Detector: Tested, Proper Function Extracorporeal Circuit Tested for Integrity: Yes Machine Conductivity: 13.6 Manual Conductivity: 13.6 Manual Ph: 7 Bleach Test (Neg): Yes Bath Temperature: 36 C (96.8 F) Conductivity Meter Serial #: [id number] Machine Functioning Alarm Free? Yes Dialysis Bath: K+ (Potassium): 2 Ca+ (Calcium): 2.5 Na+ (Sodium): 137 HCO3 (Bicarb): 35 Bicarbonate Concentrate Lot No.: [id number] Acid Concentrate Lot No.: [id number] Chlorine Testing - Before each treatment and [...] Active Problem List Diagnosis Anemia Paroxysmal A-fib ([facility]) ([facility]) HTN (hypertension) ESRD on hemodialysis ([facility]) ([facility]) IgA nephropathy determined by biopsy of kidney Diverticulosis Nonrheumatic aortic valve stenosis Calcification of abdominal aorta ([facility]) Missed vaccination due to patient refusal Tobacco abuse Alcohol use disorder in remission Atrial flutter, unspecified type ([facility]) RSV (acute bronchiolitis due to respiratory syncytial virus) Aortic stenosis Upper GI bleed S/P AVR Acute hypoxic respiratory failure ([facility]) Acute encephalopathy Pneumoperitoneum Gastric ulceration Severe malnutrition ([facility]) ([facility]) Pleural effusion Peritonitis due to fungus ([facility]) History of abdominal surgery Leg DVT (deep venous thromboembolism), acute, left ([facility]) Ischemic ulcer of toe of left foot, limited to breakdown of skin ([facility]) Tracheostomy dependence ([facility]) Leukocytosis Decubitus ulcer of sacral region, unstageable ([facility]) Pneumonia of both lungs due to methicillin susceptible Staphylococcus aureus (MSSA) ([facility]) Sacral osteomyelitis ([facility]) ([facility]) Acute respiratory failure with hypoxia ([facility]) [J96.01] Tracheostomy care ([facility]) [Z43.0] 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[facility]) 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 Complication of tracheostomy ([facility]) ([facility]) BRBPR (bright red blood per rectum) Hemoptysis SOB (shortness of breath) Moderate malnutrition (CMS/HCC) (HCC) Shortness of breath [3] [facility] 04-05-2025 Nurse Note Patient Name: Jun Snyder Patient : 1965 Acct: [id number] Date of Admission: 04/05/2025 Room/Bed: Code Status: [...] (0) 3 Regular None (Room air) Clear;Diminished [place];Ecchymosis Warm;Dry Soft Present pt consents to dialysis [...] 29 04/05/2025 1025 BUN 34 (H) 04/05/2025 102 CREATININE 3.52 (H) 04/05/2025 102 CREATININE 9.99 (H) 10/27/2019 0545 CALCIUM 9.0 04/05/2025 102 PHOS 2.6 02/23/2025 0032 IV Drips and Rate/Dose Continuous Meds[3] Safety - Before each treatment: Dialysis Machine No.: [id number] RO Machine Number: [id number] Dialyzer Lot No.: [id number] Tubing Lot Number: [id number] [employer] Secure: Yes Venous Parameters Set: Yes Arterial Parameters Set: Yes NS Bag: Yes Saline Line Double Clamped: Yes Dialyzer: Nipro Prime Volume (mL): 200 mL RO Machine Number: [id number] RO Machine Log Sheet Completed: Yes Machine Alarm Self Test: Completed, Passed (1351) (04/05/25 1351) Air Foam Detector: Tested, Proper Function Extracorporeal Circuit Tested for Integrity: Yes Machine Conductivity: 13.6 Manual Conductivity: 13.6 Manual Ph: 7 Bleach Test (Neg): Yes Bath Temperature: 36 C (96.8 F) Conductivity Meter Serial #: [id number] Machine Functioning Alarm Free? Yes Dialysis Bath: K+ (Potassium): 2 Ca+ (Calcium): 2.5 Na+ (Sodium): 137 HCO3 (Bicarb): 35 Bicarbonate Concentrate Lot No.: [id number] Acid Concentrate Lot No.: [id number] Chlorine Testing - Before each treatment and [...] Active Problem List Diagnosis Anemia Paroxysmal A-fib ([facility]) (HCC) HTN (hypertension) ESRD on hemodialysis ([facility]) ([facility]) IgA nephropathy determined by biopsy of kidney [...] Tracheostomy care (HCC) [Z43.0] 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HCC) jail (current) use of antibiotics Complication of tracheostomy (CMS/HCC) (HCC) BRBPR (bright red blood per rectum) Hemoptysis SOB (shortness of breath) Moderate malnutrition (CMS/HCC) (HCC) Shortness of breath [3] documented in this encounter [facility] 04-05-2025 Emergency department Note Dialysis at bedside. [facility] 04-05-2025 Emergency department Note Dialysis at bedside. [...] provider for clarification. Dieter Villegas MD 04/05/25 7742 Pt here to the ER via EMS [...] and get vitals. documented in this encounter [facility] 04-05-2025 Miscellaneous Notes Formattin g of this note might be different from the original. Noted Spoke with patient's nurse from [facility]. Patient's nurse stated will need to cancel today's appointment. Nurse stated Patient was sent to [place] ER for tachycardia. Nurse stated can not complete dialysis with patient's tachycardia. Nurse stated Sabino who scheduled appointments will call the office at a later time to reschedule patient's appointment. FYI to provider. documented in this encounter [facility] 04-05-2025 Telephone encount er Note Noted [facility] Work Phone: 04-05-2025 Emergency department Note Pt has no complaints at this time. [facility] 04-05-2025 Emergency department Triage note Pt here [...] to hook pt up and get vitals. [facility] 04-05-2025 Physician Emergen cy department Note This [...] provider for clarification. Dieter Villegas MD 04/05/25 2942 [facility] 04-05-2025 Telephone encount er Note Spoke with patient's nurse from [facility]. Patient's nurse stated will need to cancel today's appointment. Nurse stated Patient was sent to [place] ER for tachycardia. Nurse stated can not complete dialysis with patient's tachycardia. Nurse stated Sabino who scheduled appointments will call the office at a later time to reschedule patient's appointment. FYI to provider. [facility] 03-26-2025 Telephone encount er Note 3rd attempt unable to speak to Sabino she's not in the office at them moment. Left message to call the office back to schedule [facility] 03-26-2025 Miscellaneous Notes Formattin g of this [...] this? Thank you documented in this encounter [facility] 03-26-2025 Telephone encount er Note Sabino has been notified the visit can not be virtual [facility] 03-26-2025 Miscellaneous Notes Formattin g of this note might be different from the original. Sabino has been notified the visit can not be virtual Name of Caller: Bobbi Washington [facility] Contact Reason for Appointment: Change 04/05/25 hospital follow up to a vv. Please call and advise. Office Name: [facility] Neurology Cindy documented in this encounter [facility] 03-26-2025 Telephone encount er Note Name of Caller: Bobbi Washington [facility] Contact Reason for Appointment: Change 04/05/25 hospital follow up to a vv. Please call and advise. Office Name: [facility] Neurology Cindy [facility] 03-21-2025 Nurse Note Educated pt on importance of prescribed medications. Pt still refused. [facility] 03-21-2025 Nurse Note Educated pt on importance of prescribed medications. Pt still refused. Patient Name: Jun Snyder Patient : 1965 Acct: [id number] Date of Admission: 03/13/2025 Room/Bed: [facility] A Code Status: Full [...] - Before each treatment: Dialysis Machine No.: [id number] RO Machine Number: [id number] Dialyzer Lot No.: [id number] Tubing Lot Number: [id number] All Connections Secure: Yes Venous Parameters Set: Yes Arterial Parameters Set: Yes NS Bag: Yes Saline Line Double Clamped: Yes Dialyzer: Nipro Prime Volume (mL): 200 mL RO Machine Number: [id number] RO Machine Log Sheet Completed: Yes Machine Alarm Self Test: Completed, Passed (03/20/25 1145) Air Foam Detector: Tested, Proper Function, pH Reading Extracorporeal Circuit Tested for Integrity: Yes Machine Conductivity: 13.8 Manual Conductivity: 13.8 Manual Ph: 7 Bleach Test (Neg): Yes Bath Temperature: 36 C (96.8 F) Conductivity Meter Serial #: [id number] Machine Functioning Alarm Free? Yes Dialysis Bath: [...] Other (Comment) (to inform patient arrival from [facility] and need for orders) Provider [...] Active Problem List Diagnosis Anemia Paroxysmal A-fib ([facility]) ([facility]) HTN (hypertension) ESRD on hemodialysis ([facility]) ([facility]) IgA nephropathy determined by biopsy of kidney [...] failure with hypoxia (HCC) [J96.01] Tracheostomy care ([facility]) [Z43.0] 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HCC) jail (current) use of antibiotics Complication of tracheostomy [...] Name: Jun Snyder Patient : 1965 Acct: [id number] Date of Admission: 03/13/2025 Room/Bed: [facility] A Code Status: Full [...] 3.25 (H) 03/17/202546 CREATININE 9.99 (H) 10/27/2019 0545 CALCIUM 9.6 03/17/202546 PHOS 2.6 02/23/202531 IV Drips and Rate/Dose Continuous Meds[3] Safety - Before each treatment: Dialysis Machine No.: [id number] RO Machine Number: [id number] Dialyzer Lot No.: [id number] Tubing Lot Number: [id number] All Connections Secure: Yes Venous Parameters Set: Yes Arterial Parameters Set: Yes NS Bag: Yes Saline Line Double Clamped: Yes Dialyzer: Nipro Prime Volume (mL): 200 mL RO Machine Number: [id number] RO Machine Log Sheet Completed: Yes Machine Alarm Self Test: Completed, Passed (03/17/25 0803) Air Foam Detector: Tested, Proper Function, pH Reading Extracorporeal Circuit Tested for Integrity: Yes Machine Conductivity: 13.6 Manual Conductivity: 13.6 Manual Ph: 7 Bleach Test (Neg): Yes Bath Temperature: 36 C (96.8 F) Conductivity Meter Serial #: [id number] Machine Functioning Alarm Free? Yes Dialysis Bath: [...] Other (Comment) (to inform patient arrival from [facility] and need for orders) Provider [...] Active Problem List Diagnosis Anemia Paroxysmal A-fib ([facility]) ([facility]) HTN (hypertension) ESRD on hemodialysis ([facility]) ([facility]) IgA nephropathy determined by biopsy of kidney Diverticulosis Nonrheumatic aortic valve stenosis Calcification of abdominal aorta ([facility]) Missed vaccination due to patient refusal Tobacco abuse Alcohol use disorder in remission Atrial flutter, unspecified type ([facility]) RSV (acute bronchiolitis due to respiratory syncytial virus) Aortic stenosis Upper GI bleed S/P AVR Acute hypoxic respiratory failure ([facility]) Acute encephalopathy Pneumoperitoneum Gastric ulceration Severe malnutrition [...] failure with hypoxia (HCC) [J96.01] Tracheostomy care ([facility]) [Z43.0] 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HCC) jail (current) use of antibiotics Complication of tracheostomy (CMS/HCC) (HCC) BRBPR (bright red blood per rectum) Hemoptysis SOB (shortness of breath) Moderate malnutrition (CMS/HCC) ([facility]) [3] heparin, 5-30 Units/kg/hr Patient Name: Jun Snyder Patient : 1965 Acct: [id number] Date of Admission: 03/13/2025 Room/Bed: [facility] A Code Status: Full [...] - Before each treatment: Dialysis Machine No.: [id number] RO Machine Number: [id number] Dialyzer Lot No.: [id number] Tubing Lot Number: [id number] All Connections Secure: Yes Venous Parameters Set: Yes Arterial Parameters Set: Yes NS Bag: Yes Saline Line Double Clamped: Yes Dialyzer: Nipro Prime Volume (mL): 200 mL RO Machine Number: [id number] RO Machine Log Sheet Completed: Yes Machine Alarm Self Test: Completed, Passed (03/15/25 1215) Air Foam Detector: Tested, Proper Function, pH Reading Extracorporeal Circuit Tested for Integrity: Yes Machine Conductivity: 13.8 Manual Conductivity: 13.7 Manual Ph: 7 Bleach Test (Neg): Yes Bath Temperature: 36 C (96.8 F) Conductivity Meter Serial #: [id number] Machine Functioning Alarm Free? Yes Dialysis Bath: [...] Other (Comment) (to inform patient arrival from [facility] and need for orders) Provider [...] Active Problem List Diagnosis Anemia Paroxysmal A-fib ([facility]) ([facility]) HTN (hypertension) ESRD on hemodialysis (CMS/HCC) (HCC) [...] (CMS/HCC) (HCC) Acute respiratory failure with hypoxia ([facility]) [J96.01] Tracheostomy care ([facility]) [Z43.0] 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[facility]) jail (current) use of antibiotics Complication of tracheostomy (CMS/HCC) (HCC) BRBPR (bright red blood per rectum) Hemoptysis SOB (shortness of breath) Moderate malnutrition (CMS/HCC) ([facility]) [3] Wound Care consulted for Pressure Injury Prevention. Pt's Kee score= 14 on 03/13 Pt's pressure points assessed. Pt's Heels, Back, Elbows, Occiput and ears all intact. [place] and healed area noted to occiput. Pt moving lower extremities well in bed against gravity. Pt currently followed by Wound [facility] group for wounds to left toes 1-4 and sacrum with wound vac in place. For left toes, sacrum, and sacral wound vac assessments and treatment plan, please see Wound/Ostomy [employer] progress notes. Instructed pt on pressure injury prevention and importance of turning/postioning every 2hrs while in bed and every 15 min while sitting in chair. Instructed on use and care of waffle chair cushion. Verbalized understanding. Prevention Measures in place, including: [place] sheet with pillows/wedges, Heels elevated off bed on pillows, Zinc/Moisture Barrier ointment (obtained), Waffle chair cushion (obtained for pt). Skin Care precaution order set in place. Dietitian consult order placed d/t wounds. PT/OT consult in place. Will continue to follow pt. Please Vocera for any questions or concerns. Yari Pelletier RN Patient Name: Jun Snyder Patient : 1965 Acct: [id number] Date of Admission: 03/13/2025 Room/Bed: [facility] A Code Status: Full [...] - Before each treatment: Dialysis Machine No.: [id number] Machine Number: [id number] Dialyzer Lot No.: [id number] Tubing Lot Number: [id number] All Connections Secure: Yes Venous Parameters Set: Yes Arterial Parameters Set: Yes NS Bag: Yes Saline Line Double Clamped: Yes Dialyzer: Nipro Prime Volume (mL): 200 mL RO Machine Number: [id number] RO Machine Log Sheet Completed: Yes Machine Alarm Self Test: Completed, Passed (03/14/25 1135) Air Foam Detector: Tested, Proper Function, pH Reading Extracorporeal Circuit Tested for Integrity: Yes Machine Conductivity: 13.7 Manual Conductivity: 13.6 Manual Ph: 7 Bleach Test (Neg): Yes Bath Temperature: 36 C (96.8 F) Conductivity Meter Serial #: [id number] Machine Functioning Alarm Free? Yes Dialysis Bath: [...] Other (Comment) (to inform patient arrival from [facility] and need for orders) Provider Name: dr sanon Provider Role: Attending physician Method of Communication: Secure chat Response: At bedside Provider Role: Attending physician Method of Communication: Secure chat Response: At bedside Handoff complete and report given to Primary RN at 1549. Primary RN (First Initial, Last Name, Title): Matt ABRNES RN Education Person Educated: Patient Knowledge Base: Substantial Barriers to Learning?: None Preferred method of Learning: Oral Topic(s): call light, Access Care, Signs and Symptoms of Infection, Fluid Management, and Procedural Teaching Tools: Explanation Response to Education: Verbalized Understanding [1] Allergies Allergen Reactions Lisinopril Swelling and Angioedema [2] Patient Active Problem List Diagnosis Anemia Paroxysmal A-fib ([facility]) ([facility]) HTN (hypertension) ESRD on hemodialysis ([facility]) ([facility]) IgA nephropathy determined by biopsy of kidney Diverticulosis Nonrheumatic aortic valve stenosis Calcification of abdominal aorta ([facility]) Missed vaccination due to patient refusal Tobacco abuse Alcohol use disorder in remission Atrial flutter, unspecified type (HCC) RSV (acute bronchiolitis due to respiratory syncytial virus) Aortic stenosis Upper GI bleed S/P AVR Acute hypoxic respiratory failure ([facility]) Acute encephalopathy Pneumoperitoneum Gastric ulceration Severe malnutrition (CMS/HCC) ([facility]) Pleural effusion Peritonitis due to fungus ([facility]) History of abdominal surgery Leg DVT (deep venous thromboembolism), acute, left (HCC) Ischemic ulcer of toe of left foot, 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) Tracheostomy dependence (HCC) Leukocytosis Decubitus ulcer of sacral region, unstageable ([facility]) Pneumonia of both lungs due to methicillin susceptible Staphylococcus aureus (MSSA) ([facility]) Sacral osteomyelitis ([facility]/HCC) (HCC) Acute respiratory failure with hypoxia ([facility]) [J96.01] Tracheostomy care ([facility]) [Z43.0] 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[facility]) jail (current) use of antibiotics Complication of tracheostomy ([facility]/HCC) ([facility]) BRBPR (bright red blood per rectum) Hemoptysis SOB (shortness of breath) [3] Removed wound vac that patient arrived to 5w from f pictures of all wound taken on rover and saved to chart NSWto DSD applied to sacral wound documented in this encounter [facility] 03-21-2025 Note Formatting of this n ote might be different from the original. MAR, Labs & Discharge med list transmitted to [facility] via [facility] per TCC request. [facility] 03-21-2025 Note Formatting of this n ote might be different from the original. MAR, Labs & Discharge med list transmitted to [facility] via [facility] per TCC request. [facility] 03-21-2025 Miscellaneous Notes Formattin g of this note might be different from the original. MAR, Labs & Discharge med list transmitted to [facility] via [facility] per TCC request. Transport requested in Roundtrip. Awaiting time confirmation. Confirmed pickup time of 5:00PM by transport [place] at phone number . Location of facility drop off is [facility]. Facility notified via [facility], Kaity [facility]ough[facility] notified on secure chat. Care Management Progress Note Short Medical why still here: Heparin gtt stopped today. . INR 2.9 today. Getting Coumadin. Refusing to work with therapy. They would like to skill him if able. Planned Discharge Disposition: Jail/Residential Care Barriers/Today we still Wait: Administering IV [...] Coumadin. INR 1.9 today Planned Discharge Disposition: Jail/Residential Care Barriers/Today we still Wait: Clinical stability [...] When stable plan is to return to [facility].. . Length of Stay (Days): 6 [...] When stable is a bed hold at [facility]. . Length of Stay (Days): 2 [...] therapies are following. Wants to return to [facility]. Is a bed hold, but if they can skill him they would like to.. Length of Stay (Days): 1 GMLOS: No GMLOS Documented Referral placed to [facility] Return - [facility] per [facility] request. Await review and response regarding ability to accept. TCC notified. Problem: Knowledge Deficit Goal: Patient/family/caregiver demonstrates understanding of disease process, treatment plan, medications, and discharge instructions Outcome: Progressing Problem: Potential for Compromised Skin Integrity Goal: Skin Integrity is Maintained or Improved Outcome: Progressing documented in this encounter [facility] 03-21-2025 Note Formatting of this n ote might be different from the original. Transport requested in Roundtrip. Awaiting time confirmation. Confirmed pickup time of 5:00PM by transport [place] at phone number . Location of facility drop off is [facility]. Facility notified via [facility] notified on secure chat. [facility] 03-21-2025 Note Formatting of this n ote might be different from the original. Transport requested in Roundtrip. Awaiting time confirmation. Confirmed pickup time of 5:00PM by transport [place] at phone number . Location of facility drop off is [facility]. Facility notified via [facility] notified on secure chat. [facility] 03-21-2025 Note [facility] 03-21-2025 Hospital course Narrative Discharge Summary Jun Snyder : 1965 ADMIT DATE: 03/13/2025 DISCHARGE DATE: 03/21/2025 PRIMARY CARE PHYSICIAN: Leilnai Troncoso VISIT STATUS: Admission CODE STATUS: Full [...] Klebsiella pneumonia with lung abscess presented to [place] ED with worsening shortness of breath. He [...] Complexity: follow up within 7-14 calendar days (57601) [x] Severe Complexity: follow up within 7 calendar days (40424) FOLLOW UP TESTING, PENDING RESULTS OR REFERRALS AT TRANSITIONAL CARE VISIT: [] Yes [x] No PENDING STUDIES: None DISPOSITION: Nursing Home Care Facility (Non-Skilled) FACILITY/HOME CARE AGENCY NAME: [facility] [id number] Follow up INSTRUCTIONS TO MA/SW: Please call [...] 03/21/2025, 12:07 PM documented in this encounter [facility] 03-21-2025 History of Presen t illness Narrative Patient quit smoking in September. Accepting of handout with contact information for additional support to remain quit if neccesary. Hospitalist Progress Note Subjective: Admit Date: 03/13/2025 PCP: Leilani Troncoso Room#: [id number] A Chief complaint: Shortness of breath Brief Hospital course: Jun is a 59 y.o. male with past medical history of hypertension, IgA nephropathy, ESRD on HD, CAD, history of CABG, history of intracranial bleed, paroxysmal A-fib aortic stenosis, s/p mechanical valve replacement recent admission here from 02/20-03/05 for hemoptysis due to Klebsiella pneumonia with lung abscess presented to [place] ED with worsening shortness of breath. He [...] MD Division of Hospital Medicine Inpatient Medical Services/[facility] [1] Past Medical History: Diagnosis Date Acute renal failure (ARF) (HCC) 10/19/2019 Anemia 12/30/2021 Calcification of abdominal aorta (HCC) 10/08/202309/[address] abd Diverticulosis 10/08/2023 ESRD on hemodialysis ([facility]) ([facility]) 10/26/2019 Hemodialysis patient ([facility]) ([facility]) HTN (hypertension) 12/01/2022 Hypertension IgA nephropathy IgA nephropathy determined by biopsy of kidney 10/26/2019 Missed vaccination due to patient refusal 10/08/2023 Has a number of non-scientific based beliefs which interfere with his understanding and acceptance of the medical benefit of vaccination. Nonrheumatic aortic valve stenosis 10/08/2023 Paroxysmal A-fib ([facility]) ([facility]) 08/18/2023 Tobacco abuse 10/08/2023 [2] Lidocaine, 1 [...] History: Diagnosis Date Acute renal failure (ARF) ([facility]) 10/19/2019 Anemia 12/30/2021 Calcification of abdominal aorta ([facility]) 10/08/202309/[address] abd Diverticulosis 10/08/2023 ESRD on hemodialysis ([facility]) ([facility]) 10/26/2019 Hemodialysis patient ([facility]) ([facility]) HTN (hypertension) 12/01/2022 Hypertension IgA nephropathy IgA nephropathy determined by biopsy of kidney 10/26/2019 Missed vaccination due to patient refusal 10/08/2023 Has a number of non-scientific based beliefs which interfere with his understanding and acceptance of the medical benefit of vaccination. Nonrheumatic aortic valve stenosis 10/08/2023 Paroxysmal A-fib ([facility]) ([facility]) 08/18/2023 Tobacco abuse 10/08/2023 Images from the original note were not included. PHYSICAL THERAPY [facility] Name/MRN: Jair Snyder ([id number]) Date: 03/21/2025 Chart review completed this date. [...] another time/date as schedule permits. Cecy Pierre, INDUSTRIAL RELATIONS REPRESENTATIVE Cosigned by Darryn Tay, PT at 03/21/2025 2:58 PM EDT [facility] Anticoagulation Management Service ([facility]) Inpatient Warfarin [...] dose accordingly. 3. Warfarin is followed by [facility] outpatient. [facility] will manage inpatient and take over management once discharged from SNF. Fatuma Odonnell RPh, PharmD [facility] is available daily [phone] via alooma. If no response on Hybrent Chat then please page [phone]. [1] Past Medical History: Diagnosis Date Acute renal failure (ARF) ([facility]) 10/19/2019 Anemia 12/30/2021 Calcification of abdominal aorta ([facility]) 10/08/202309/[address] abd Diverticulosis 10/08/2023 ESRD on hemodialysis ([facility]) ([facility]) 10/26/2019 Hemodialysis patient ([facility]) ([facility]) HTN (hypertension) 12/01/2022 Hypertension IgA nephropathy IgA nephropathy determined by biopsy of kidney 10/26/2019 Missed vaccination due to patient refusal 10/08/2023 Has a number of non-scientific based beliefs which interfere with his understanding and acceptance of the medical benefit of vaccination. Nonrheumatic aortic valve stenosis 10/08/2023 Paroxysmal A-fib ([facility]) ([facility]) 08/18/2023 Tobacco abuse 10/08/2023 Nutrition Assessment Type [...] mechanical valve replacement recent admission here from 5/27-03/05 for hemoptysis due to Klebsiella pneumonia with lung abscess presented to [place] ED with worsening shortness of breath. He [...] [03/20/251752] Intake/Output Summary (Last 24 hours) at 03/20/20251752 Last data filed at 03/20/2025 1523 Gross [...] Ensure Plus High Protein 03/14/25 1801 03/13/25 174 Adult diet Regular; Low Sodium (2 gm) Diet effective now Question Answer Comment Diet type Regular Sodium restriction: Low Sodium (2 gm) 03/13/25 174 Anthropometric Measures: Height: 177.8 cm (5' 10") Current Body Weight: 69.4 kg (153 lb) Weight Source: Standing Scale Admission Body Weight: 67.1 kg (148 lb) (no method) Usual Body Weight: 93.4 kg (206 lb) (Aug 2024) % Weight Change (Calculated): -28.6 [place] Body Weight (lbs) (Calculated): 166 lbs [place] Body Weight (Kg) (Calculated): 75 kg % [place] Body Weight (Calculated): 88.6 % BMI (kg/m2) [...] Yasemin Ceron MS, RD, LD Contact: or Hybrent Chat (dial *[phone] from hospital phone) [1] Lidocaine, 1 patch, Topical, Daily metoprolol tartrate, 50 mg, Oral, BID pantoprazole, 40 mg, Oral, BID AC sevelamer carbonate, 800 mg, Oral, TID WC sodium zirconium cyclosilicate, 5 g, Oral, Daily [2] heparin, 5-30 Units/kg/hr, Last Rate: 20 Units/kg/hr (03/20/25 1643) [facility] ([facility]) Inpatient Warfarin [...] candidate 2025, staffed with Fatuma Odonnell PharmD, [facility] is available daily [phone] via alooma. If no response on Hybrent Chat then please page [phone]. [1] Past Medical History: Diagnosis Date Acute renal failure (ARF) (HCC) 10/19/2019 Anemia 12/30/2021 Calcification of abdominal aorta (HCC) 10/08/202309/[address] abd Diverticulosis 10/08/2023 ESRD on hemodialysis ([facility]) ([facility]) 10/26/2019 Hemodialysis patient ([facility]) ([facility]) HTN (hypertension) 12/01/2022 Hypertension IgA nephropathy IgA nephropathy determined by biopsy of kidney 10/26/2019 Missed vaccination due to patient refusal 10/08/2023 Has a number of non-scientific based beliefs which interfere with his understanding and acceptance of the medical benefit of vaccination. Nonrheumatic aortic valve stenosis 10/08/2023 Paroxysmal A-fib ([facility]) ([facility]) 08/18/2023 Tobacco abuse 10/08/2023 Cosigned by Fatuma [...] Klebsiella pneumonia with lung abscess presented to [place] ED with worsening shortness of breath. He [...] Net 1038.87 ml LABS: CBC: Recent Labs 03/18/2515803/19/2575103/20/25 0548 WBC 7.6 7.8 8.1 RBC 3.03* 2.98* 3.00* HGB 9.1* 8.9* 9.2* HCT 30.4* 30.4* 30.3* MCV 100.3* 102.0* 101.0* RDW 20.6* 20.8* 20.2* PLT 333 320 308 BMP: Recent Labs 03/18/2515803/19/2575103/20/25 0548 NA 139 137 136 K 3.4* 4.0 5.3* CL 100 102 102 CO2 29 27 24 BUN 16 24* 32* CREATININE 2.64* 3.67* 4.28* GLUCOSE 73* 85 91 CALCIUM 9.0 9.0 9.1 ANIONGAP 10 8 10 LIVER PROFILE: Recent Labs 03/18/2515803/19/2575103/20/25 0548 AST 50* 52* 46* ALT 11 14 13 BILITOT 0.8 0.9 0.8 ALKPHOS 241* 221* 194* PROT 7.3 7.4 7.3 PT/INR: Recent Labs 03/18/2515803/19/2575103/20/25 0548 PROTIME 15.2* 17.0* 19.1* INR 1.5* [...] MD Division of Hospital Medicine Inpatient Medical Services/[facility] [1] Past Medical History: Diagnosis Date Acute renal failure (ARF) ([facility]) 10/19/2019 Anemia 12/30/2021 Calcification of abdominal aorta ([facility]) 10/08/202309/[address] abd Diverticulosis 10/08/2023 ESRD on hemodialysis ([facility]) ([facility]) 10/26/2019 Hemodialysis patient ([facility]) ([facility]) HTN (hypertension) 12/01/2022 Hypertension IgA nephropathy IgA nephropathy determined by biopsy of kidney 10/26/2019 Missed vaccination due to patient refusal 10/08/2023 Has a number of non-scientific based beliefs which interfere with his understanding and acceptance of the medical benefit of vaccination. Nonrheumatic aortic valve stenosis 10/08/2023 Paroxysmal A-fib ([facility]) ([facility]) 08/18/2023 Tobacco abuse 10/08/2023 [2] Lidocaine, 1 [...] History: Diagnosis Date Acute renal failure (ARF) ([facility]) 10/19/2019 Anemia 12/30/2021 Calcification of abdominal aorta ([facility]) 10/08/202309/[address] abd Diverticulosis 10/08/2023 ESRD on hemodialysis ([facility]) ([facility]) 10/26/2019 Hemodialysis patient ([facility]) ([facility]) HTN (hypertension) 12/01/2022 Hypertension IgA nephropathy IgA nephropathy determined by biopsy of kidney 10/26/2019 Missed vaccination due to patient refusal 10/08/2023 Has a number of non-scientific based beliefs which interfere with his understanding and acceptance of the medical benefit of vaccination. Nonrheumatic aortic valve stenosis 10/08/2023 Paroxysmal A-fib ([facility]) ([facility]) 08/18/2023 Tobacco abuse 10/08/2023 [facility] ([facility]) Inpatient Warfarin [...] candidate 2025, staffed with Fatuma Odonnell PharmD, [facility] is available daily [phone] via alooma. If no response on Hybrent Chat then please page [phone]. [1] Past Medical History: Diagnosis Date Acute renal failure (ARF) ([facility]) 10/19/2019 Anemia 12/30/2021 Calcification of abdominal aorta ([facility]) 10/08/202309/[address] abd Diverticulosis 10/08/2023 ESRD on hemodialysis ([facility]) ([facility]) 10/26/2019 Hemodialysis patient ([facility]) ([facility]) HTN (hypertension) 12/01/2022 Hypertension IgA nephropathy IgA nephropathy determined by biopsy of kidney 10/26/2019 Missed vaccination due to patient refusal 10/08/2023 Has a number of non-scientific based beliefs which interfere with his understanding and acceptance of the medical benefit of vaccination. Nonrheumatic aortic valve stenosis 10/08/2023 Paroxysmal A-fib ([facility]) ([facility]) 08/18/2023 Tobacco abuse 10/08/2023 Cosigned by Fatuma Odonnell RP at 03/19/2025 2:39 PM EDT Images from the original note were not included. [facility] Wound Care/NPWT Progress Note Jun Snyder AGE: [...] apply Betadine and allow to dry, leave [employer]ELOP[employer] daily and PRN Centrella Pro Plus bed Reposition q2hrs Incontinent checks q2hrs Nutritional support Wound Care to follow Recommend to follow up at [facility] wound care center after hospital discharge. [...] History: Diagnosis Date Acute renal failure (ARF) ([facility]) 10/19/2019 Anemia 12/30/2021 Calcification of abdominal aorta ([facility]) 10/08/202309/[address] abd Diverticulosis 10/08/2023 ESRD on hemodialysis ([facility]) ([facility]) 10/26/2019 Hemodialysis patient ([facility]) ([facility]) HTN (hypertension) 12/01/2022 Hypertension IgA nephropathy IgA nephropathy determined by biopsy of kidney 10/26/2019 Missed vaccination due to patient refusal 10/08/2023 Has a number of non-scientific based beliefs which interfere with his understanding and acceptance of the medical benefit of vaccination. Nonrheumatic aortic valve stenosis 10/08/2023 Paroxysmal A-fib ([facility]) ([facility]) 08/18/2023 Tobacco abuse 10/08/2023 [2] Past Surgical History: Procedure Laterality Date APPENDECTOMY CARDIAC CATHETERIZATION N/A 10/09/2024 Performed by Bob Watson MD at [facility] Cardiac Cath/EP Lab CARDIAC CATHETERIZATION Bilateral 11/01/2024 Performed by Bob Watson MD at [facility] Cardiac Cath/EP Lab CARDIAC CATHETERIZATION N/A 11/01/2024 Performed by Bob Watson MD at [facility] Cardiac Cath/EP Lab COLONOSCOPY N/A 01/24/2025 Performed by Chadd Davis MD at [facility] ENDOSCOPY FISTULAGRAM (HISTORICAL) Left 09/15/2021 LEFT UPPER ARM HX AV FISTULA CREATION IR EMBOLIZATION 10/14/2024 IR EMBOLIZATION 10/14/2024 [facility] SPECIAL PROCEDURES IR FISTULAGRAM 08/07/2022 IR FISTULAGRAM 08/07/2022 [facility] IR IMAGING TONSILLECTOMY (HISTORICAL) [3] Family History [...] Admit Date: 03/13/2025 PCP: Leilani Troncoso Room#: [id number] A Chief Complaint Patient presents with Shortness of Breath Pt arrived from long-term via EMS. Pt was starting dialysis and [...] Klebsiella pneumonia with lung abscess presented to [place] ED with worsening shortness of breath. He [...] in upper abdomen He was transferred from [facility] to [facility] due to bed availability Nephrology consulted, [...] [phone] BMP: Recent Labs 03/17/25 0047 03/18/25 0159 03/19/25 0752 NA 141 139 137 K 3.9 3.4* 4.0 CL 104 100 102 CO2 25 29 27 BUN 22 16 24* CREATININE 3.25* 2.64* 3.67* GLUCOSE 87 73* 85 CALCIUM 9.6 9.0 9.0 ANIONGAP 12 10 8 LIVER PROFILE: Recent Labs 03/17/25 0047 03/18/25 0159 03/19/25 0752 AST 54* 50* 52* ALT 15 11 14 BILITOT 0.9 0.8 0.9 ALKPHOS 223* 241* 221* PROT 8.0 7.3 7.4 PT/INR: Recent Labs 03/17/257 03/18/25 0159 03/19/25 0752 PROTIME 16.0* 15.2* 17.0* [...] MD Division of Hospital Medicine Inpatient Medical Services/[facility] [1] Past Medical History: Diagnosis Date Acute renal failure (ARF) (HCC) 10/19/2019 Anemia 12/30/2021 Calcification of abdominal aorta ([facility]) 10/08/202309/[address] abd Diverticulosis 10/08/2023 ESRD on hemodialysis ([facility]) ([facility]) 10/26/2019 Hemodialysis patient ([facility]) ([facility]) HTN (hypertension) 12/01/2022 Hypertension IgA nephropathy IgA nephropathy determined by biopsy of kidney 10/26/2019 Missed vaccination due to patient refusal 10/08/2023 Has a number of non-scientific based beliefs which interfere with his understanding and acceptance of the medical benefit of vaccination. Nonrheumatic aortic valve stenosis 10/08/2023 Paroxysmal A-fib ([facility]) ([facility]) 08/18/2023 Tobacco abuse 10/08/2023 [2] Lidocaine, 1 [...] History: Diagnosis Date Acute renal failure (ARF) ([facility]) 10/19/2019 Anemia 12/30/2021 Calcification of abdominal aorta ([facility]) 10/08/202309/[address] abd Diverticulosis 10/08/2023 ESRD on hemodialysis ([facility]) ([facility]) 10/26/2019 Hemodialysis patient ([facility]) ([facility]) HTN (hypertension) 12/01/2022 Hypertension IgA nephropathy IgA nephropathy determined by biopsy of kidney 10/26/2019 Missed vaccination due to patient refusal 10/08/2023 Has a number of non-scientific based beliefs which interfere with his understanding and acceptance of the medical benefit of vaccination. Nonrheumatic aortic valve stenosis 10/08/2023 Paroxysmal A-fib ([facility]) ([facility]) 08/18/2023 Tobacco abuse 10/08/2023 Nephrology Progress Note [...] Intake/Output Summary (Last 24 hours) at 03/19/2025 06 Last data filed at 03/18/2025 1928 Gross [...] sacral wound. Wellington Nicole MD' Please call [phone] or message me through Hybrent with any questions or concerns. Nephrology Progress [...] lower extremity edema Data: Labs: Recent Labs 03/16/2515403/17/257 03/18/25 015 WBC 7.0 6.7 7.6 HGB 9.1* 10.0* 9.1* HCT 30.2* 33.8* 30.4* MCV 100.0* 102.1* 100.3* PLT 372 407 333 Recent Labs 03/16/2515403/17/25 0047 03/18/25 015 NA [...] sacral wound. Wellington Nicole MD' Please call [phone] or message me through Hybrent with any questions or concerns. Hospitalist Progress Note Subjective: Admit Date: 03/13/2025 PCP: Leilani Troncoso Room#: [id number] A Chief Complaint Patient presents with Shortness of Breath Pt arrived from long-term via EMS. Pt was starting dialysis and [...] Klebsiella pneumonia with lung abscess presented to [place] ED with worsening shortness of breath. He [...] in upper abdomen He was transferred from [facility] to [facility] due to bed availability Nephrology consulted, [...] PROFILE: Recent Labs 03/16/25 0155 03/17/25 0047 03/18/25 0159 AST 47* 54* 50* ALT 13 15 11 BILITOT 0.9 0.9 0.8 ALKPHOS 194* 223* 241* PROT 7.3 8.0 7.3 PT/INR: Recent Labs 03/16/25 0155 03/17/25 0047 03/18/25 0159 PROTIME 17.3* 16.0* 15.2* INR 1.7* 1.5* [...] MD Division of Hospital Medicine Inpatient Medical Services/[facility] [1] Past Medical History: Diagnosis Date Acute renal failure (ARF) ([facility]) 10/19/2019 Anemia 12/30/2021 Calcification of abdominal aorta (HCC) 10/08/202309/[address] abd Diverticulosis 10/08/2023 ESRD on hemodialysis ([facility]) ([facility]) 10/26/2019 Hemodialysis patient ([facility]) ([facility]) HTN (hypertension) 12/01/2022 Hypertension IgA nephropathy IgA nephropathy determined by biopsy of kidney 10/26/2019 Missed vaccination due to patient refusal 10/08/2023 Has a number of non-scientific based beliefs which interfere with his understanding and acceptance of the medical benefit of vaccination. Nonrheumatic aortic valve stenosis 10/08/2023 Paroxysmal A-fib ([facility]) ([facility]) 08/18/2023 Tobacco abuse 10/08/2023 [2] Lidocaine, 1 [...] History: Diagnosis Date Acute renal failure (ARF) ([facility]) 10/19/2019 Anemia 12/30/2021 Calcification of abdominal aorta ([facility]) 10/08/202309/[address] abd Diverticulosis 10/08/2023 ESRD on hemodialysis ([facility]) ([facility]) 10/26/2019 Hemodialysis patient ([facility]) ([facility]) HTN (hypertension) 12/01/2022 Hypertension IgA nephropathy IgA nephropathy determined by biopsy of kidney 10/26/2019 Missed vaccination due to patient refusal 10/08/2023 Has a number of non-scientific based beliefs which interfere with his understanding and acceptance of the medical benefit of vaccination. Nonrheumatic aortic valve stenosis 10/08/2023 Paroxysmal A-fib ([facility]) ([facility]) 08/18/2023 Tobacco abuse 10/08/2023 [facility] ([facility]) Inpatient Warfarin [...] dose accordingly. 3. Warfarin is followed by [facility] outpatient. [facility] will manage inpatient and take over management once discharged from [facility]. Darya Mireles RP, PharmD, BCPS [facility] is available daily [phone] via alooma. If no response on alooma then please page [phone]. [1] Past Medical History: Diagnosis Date Acute renal failure (ARF) ([facility]) 10/19/2019 Anemia 12/30/2021 Calcification of abdominal aorta ([facility]) 10/08/202309/[address] abd Diverticulosis 10/08/2023 ESRD on hemodialysis ([facility]) ([facility]) 10/26/2019 Hemodialysis patient ([facility]) ([facility]) HTN (hypertension) 12/01/2022 Hypertension IgA nephropathy IgA [...] with Shortness of Breath Pt arrived from long-term via EMS. Pt was starting dialysis and [...] Klebsiella pneumonia with lung abscess presented to [place] ED with worsening shortness of breath. He [...] in upper abdomen He was transferred from [place] [facility] to [facility] due to bed availability Nephrology consulted, [...] PROT 7.6 7.3 8.0 PT/INR: Recent Labs 03/15/254 03/16/25 01503/17/25 004 PROTIME 17.9* 17.3* 16.0* INR 1.7* [...] MD Division of Hospital Medicine Inpatient Medical Services/[facility] [1] Past Medical History: Diagnosis Date Acute renal failure (ARF) ([facility]) 10/19/2019 Anemia 12/30/2021 Calcification of abdominal aorta ([facility]) 10/08/202309/[address] abd Diverticulosis 10/08/2023 ESRD on hemodialysis ([facility]) ([facility]) 10/26/2019 Hemodialysis patient ([facility]) ([facility]) HTN (hypertension) 12/01/2022 Hypertension IgA nephropathy IgA nephropathy determined by biopsy of kidney 10/26/2019 Missed vaccination due to patient refusal 10/08/2023 Has a number of non-scientific based beliefs which interfere with his understanding and acceptance of the medical benefit of vaccination. Nonrheumatic aortic valve stenosis 10/08/2023 Paroxysmal A-fib ([facility]) ([facility]) 08/18/2023 Tobacco abuse 10/08/2023 [2] Lidocaine, 1 patch, Topical, Daily metoprolol tartrate, 25 mg, Oral, q6h pantoprazole, 40 mg, Oral, BID AC sevelamer carbonate, 800 mg, Oral, TID WC sodium zirconium cyclosilicate, 5 g, Oral, Daily [3] PRN medications: acetaminophen OR acetaminophen, ipratropium-albuterol, melatonin, ondansetron ODT OR ondansetron, polyethylene glycol (PEG) 3350 [4] [5] Past Medical History: Diagnosis Date Acute renal failure (ARF) ([facility]) 10/19/2019 Anemia 12/30/2021 Calcification of abdominal aorta ([facility]) 10/08/202309/[address] abd Diverticulosis 10/08/2023 ESRD on hemodialysis ([facility]) ([facility]) 10/26/2019 Hemodialysis patient ([facility]) ([facility]) HTN (hypertension) 12/01/2022 Hypertension IgA nephropathy IgA nephropathy determined by biopsy of kidney 10/26/2019 Missed vaccination due to patient refusal 10/08/2023 Has a number of non-scientific based beliefs which interfere with his understanding and acceptance of the medical benefit of vaccination. Nonrheumatic aortic valve stenosis 10/08/2023 Paroxysmal A-fib ([facility]) ([facility]) 08/18/2023 Tobacco abuse 10/08/2023 Nephrology Progress Note [...] sacral wound. Wellington Nicole MD' Please call [phone] or message me through Hybrent with any questions or concerns. [facility] ([facility]) Inpatient Warfarin [...] Mireles RPh, PharmD [facility] is available daily [phone] via alooma. If no response on alooma then please page [phone]. [1] Past Medical History: Diagnosis Date Acute renal failure (ARF) ([facility]) 10/19/2019 Anemia 12/30/2021 Calcification of abdominal aorta ([facility]) 10/08/202309/[address] abd Diverticulosis 10/08/2023 ESRD on hemodialysis ([facility]) ([facility]) 10/26/2019 Hemodialysis patient ([facility]) ([facility]) HTN (hypertension) 12/01/2022 Hypertension IgA nephropathy IgA nephropathy determined by biopsy of kidney 10/26/2019 Missed vaccination due to patient refusal 10/08/2023 Has a number of non-scientific based beliefs which interfere with his understanding and acceptance of the medical benefit of vaccination. Nonrheumatic aortic valve stenosis 10/08/2023 Paroxysmal A-fib ([facility]) ([facility]) 08/18/2023 Tobacco abuse 10/08/2023 Images from the original note were not included. OCCUPATIONAL THERAPY [facility] Initial Evaluation Name/MRN: Jair Snyder ([id number]) Evaluation Date: 03/16/2025 Date of : 1965 Admission Date: 03/13/2025 8:18 AM Age: 59 y.o. Room/Bed: [facility]/5[facility] A Discharge Recommendation: Detention Facility [...] List Diagnosis Date Noted Moderate malnutrition (CMS/HCC) ([facility]) 03/14/2025 SOB (shortness of breath) 03/13/2025 Severe malnutrition (CMS/HCC) ([facility]) 02/21/2025 Hemoptysis 02/20/2025 Complication of tracheostomy (CMS/HCC) ([facility]) 01/19/2025 jail (current) use of antibiotics 01/12/2025 Acute respiratory failure with hypoxia ([facility]) [J96.01] 01/08/2025 Tracheostomy care ([facility]) [Z43.0] 01/08/2025 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[facility]) 01/08/2025 Sacral osteomyelitis (CMS/HCC) ([facility]) 01/03/2025 Pneumonia of both lungs due to methicillin susceptible Staphylococcus aureus (MSSA) ([facility]) 01/01/2025 Leukocytosis 12/30/2024 Decubitus ulcer of sacral region, unstageable ([facility]) 12/30/2024 Peritonitis due to fungus ([facility]) 11/30/2024 History of abdominal surgery 11/30/2024 Leg DVT (deep venous thromboembolism), acute, left ([facility]) 11/30/2024 Ischemic ulcer of toe of left foot, limited to breakdown of skin ([facility]) 11/30/2024 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[facility]) 11/30/2024 Pleural effusion 11/28/2024 Gastric ulceration 2024 Atrial flutter, unspecified type ([facility]) 10/03/2024 RSV (acute bronchiolitis due to respiratory syncytial virus) 10/03/2024 Diverticulosis 10/08/2023 Nonrheumatic aortic valve stenosis 10/08/2023 Calcification of abdominal aorta ([facility]) 10/08/2023 Missed vaccination due to patient refusal 10/08/2023 Tobacco abuse 10/08/2023 Alcohol use disorder in remission 10/08/2023 Paroxysmal A-fib ([facility]) ([facility]) 08/18/2023 HTN (hypertension) 12/01/2022 ESRD on hemodialysis ([facility]) ([facility] [facility]) 10/26/2019 IgA nephropathy determined by biopsy of kidney 10/26/2019 BRBPR (bright red blood per rectum) 01/19/2025 Aortic stenosis 10/03/2024 Upper GI bleed 10/03/2024 S/P AVR 10/03/2024 Acute hypoxic respiratory failure ([facility]) 10/03/2024 Acute encephalopathy 10/03/2024 Pneumoperitoneum 10/03/2024 Anemia [...] Daily Activity Raw Score: 17 ADL Inpatient [facility] G-Code Modifier: CK Plan Pt would [...] of Care supervision is transferred to a [facility] Occupational Therapist. Goals and/or treatment plan was established in collaboration with patient/family/other representatives. [1] Past Medical History: Diagnosis Date Acute renal failure (ARF) ([facility]) 10/19/2019 Anemia 12/30/2021 Calcification of abdominal aorta ([facility]) 10/08/202309/[address] abd Diverticulosis 10/08/2023 ESRD on hemodialysis ([facility]) ([facility]) 10/26/2019 Hemodialysis patient ([facility]) ([facility]) HTN (hypertension) 12/01/2022 Hypertension IgA nephropathy IgA nephropathy determined by biopsy of kidney 10/26/2019 Missed vaccination due to patient refusal 10/08/2023 Has a number of non-scientific based beliefs which interfere with his understanding and acceptance of the medical benefit of vaccination. Nonrheumatic aortic valve stenosis 10/08/2023 Paroxysmal A-fib ([facility]) ([facility]) 08/18/2023 Tobacco abuse 10/08/2023 [2] Past Surgical History: Procedure Laterality Date APPENDECTOMY CARDIAC CATHETERIZATION N/A 10/09/2024 Performed by Bob Watson MD at [facility] Cardiac Cath/EP Lab CARDIAC CATHETERIZATION Bilateral 11/01/2024 Performed by Bob Watson MD at [facility] Cardiac Cath/EP Lab CARDIAC CATHETERIZATION N/A 11/01/2024 Performed by Bob Watson MD at [facility] Cardiac Cath/EP Lab COLONOSCOPY N/A 01/24/2025 Performed by Chadd Davis MD at [facility] ENDOSCOPY FISTULAGRAM (HISTORICAL) Left 09/15/2021 LEFT UPPER ARM HX AV FISTULA CREATION IR EMBOLIZATION 10/14/2024 IR EMBOLIZATION 10/14/2024 [facility] SPECIAL PROCEDURES IR FISTULAGRAM 08/07/2022 IR FISTULAGRAM 08/07/2022 [facility] IR IMAGING TONSILLECTOMY (HISTORICAL) Hospitalist Progress Note Subjective: Admit Date: 03/13/2025 PCP: Leilani Troncoso Room#: [id number] A Chief Complaint Patient presents with Shortness of Breath Pt arrived from long-term via EMS. Pt was starting dialysis and [...] Klebsiella pneumonia with lung abscess presented to [place] ED with worsening shortness of breath. He [...] in upper abdomen He was transferred from [place] ED to [facility] due to bed availability Nephrology consulted, [...] 600 ml LABS: CBC: Recent Labs 03/15/25 04303/16/25 0155 WBC 6.7 7.0 RBC 3.02* 3.02* [...] MD Division of Hospital Medicine Inpatient Medical Services/[facility] [1] Past Medical History: Diagnosis Date Acute renal failure (ARF) ([facility]) 10/19/2019 Anemia 12/30/2021 Calcification of abdominal aorta (HCC) 10/08/202309/[address] abd Diverticulosis 10/08/2023 ESRD on hemodialysis ([facility]) ([facility]) 10/26/2019 Hemodialysis patient ([facility]) ([facility]) HTN (hypertension) 12/01/2022 Hypertension IgA nephropathy IgA nephropathy determined by biopsy of kidney 10/26/2019 Missed vaccination due to patient refusal 10/08/2023 Has a number of non-scientific based beliefs which interfere with his understanding and acceptance of the medical benefit of vaccination. Nonrheumatic aortic valve stenosis 10/08/2023 Paroxysmal A-fib ([facility]) ([facility]) 08/18/2023 Tobacco abuse 10/08/2023 [2] Lidocaine, 1 [...] History: Diagnosis Date Acute renal failure (ARF) ([facility]) 10/19/2019 Anemia 12/30/2021 Calcification of abdominal aorta ([facility]) 10/08/202309/[address] abd Diverticulosis 10/08/2023 ESRD on hemodialysis ([facility]) ([facility]) 10/26/2019 Hemodialysis patient ([facility]) ([facility]) HTN (hypertension) 12/01/2022 Hypertension IgA nephropathy IgA nephropathy determined by biopsy of kidney 10/26/2019 Missed vaccination due to patient refusal 10/08/2023 Has a number of non-scientific based beliefs which interfere with his understanding and acceptance of the medical benefit of vaccination. Nonrheumatic aortic valve stenosis 10/08/2023 Paroxysmal A-fib ([facility]) ([facility]) 08/18/2023 Tobacco abuse 10/08/2023 Nephrology Progress Note [...] any questions or concerns Bree Molina APRN WELLNESS NURSE RN A-G SAMPLE SHOE INSPECTOR AND REWORKER [facility] [place] [phone] Pt seen and examined independently by me. I reviewed with DENIA-SAMIA the medical history and the findings on physical examination. I discussed the patient s diagnosis and concur with the treatment plan as documented in his note. Please call [phone] or message me through Hybrent with any questions or concerns. Images from the original note were not included. [facility] Wound VAC Progress Note Jun Snyder AGE: [...] pain with IV pain medication, per staff development coordinator rn, prior to wound VAC dressing change. 1 [...] to follow Recommend to follow up at [facility] wound care center after hospital discharge. Any questions or concerns please secure chat "[facility] wound/ostomy". Thank you for the consult! I [...] History: Diagnosis Date Acute renal failure (ARF) ([facility]) 10/19/2019 Anemia 12/30/2021 Calcification of abdominal aorta ([facility]) 10/08/202309/[address] abd Diverticulosis 10/08/2023 ESRD on hemodialysis ([facility]) ([facility]) 10/26/2019 Hemodialysis patient ([facility]) ([facility]) HTN (hypertension) 12/01/2022 Hypertension IgA nephropathy IgA nephropathy determined by biopsy of kidney 10/26/2019 Missed vaccination due to patient refusal 10/08/2023 Has a number of non-scientific based beliefs which interfere with his understanding and acceptance of the medical benefit of vaccination. Nonrheumatic aortic valve stenosis 10/08/2023 Paroxysmal A-fib ([facility]) ([facility]) 08/18/2023 Tobacco abuse 10/08/2023 [2] Past Surgical History: Procedure Laterality Date APPENDECTOMY CARDIAC CATHETERIZATION N/A 10/09/2024 Performed by Bob Watson MD at [facility] Cardiac Cath/EP Lab CARDIAC CATHETERIZATION Bilateral 11/01/2024 Performed by Bob Watson MD at [facility] Cardiac Cath/EP Lab CARDIAC CATHETERIZATION N/A 11/01/2024 Performed by Bob Watson MD at [facility] Cardiac Cath/EP Lab COLONOSCOPY N/A 01/24/2025 Performed by Chadd Davis MD at [facility] ENDOSCOPY FISTULAGRAM (HISTORICAL) Left 09/15/2021 LEFT UPPER ARM HX AV FISTULA CREATION IR EMBOLIZATION 10/14/2024 IR EMBOLIZATION 10/14/2024 [facility] SPECIAL PROCEDURES IR FISTULAGRAM 08/07/2022 IR FISTULAGRAM [...] Gill DO at 03/19/2025 4:44 PM EDT [facility] ([facility]) Inpatient Warfarin [...] accordingly 3. Will facilitate f/u at [facility] upon discharge Kvng Dugan, Natali 2024 Candidate [facility] is available daily [phone] via alooma. If no response on Hybrent Chat then please page [phone]. [1] Past Medical History: Diagnosis Date Acute renal failure (ARF) ([facility]) 10/19/2019 Anemia 12/30/2021 Calcification of abdominal aorta ([facility]) 10/08/202309/[address] abd Diverticulosis 10/08/2023 ESRD on hemodialysis ([facility]) ([facility]) 10/26/2019 Hemodialysis patient ([facility]) ([facility]) HTN (hypertension) 12/01/2022 Hypertension IgA nephropathy IgA nephropathy determined by biopsy of kidney 10/26/2019 Missed vaccination due to patient refusal 10/08/2023 Has a number of non-scientific based beliefs which interfere with his understanding and acceptance of the medical benefit of vaccination. Nonrheumatic aortic valve stenosis 10/08/2023 Paroxysmal A-fib ([facility]) (HCC) 08/18/2023 Tobacco abuse 10/08/2023 Cosigned by Tiffanie Dial [facility] at 03/16/2025 10:57 AM EDT Patient currently off unit, will attempt smoking cessation counseling at a later date. Hospitalist Progress Note Subjective: Admit Date: 03/13/2025 PCP: Leilani Troncoso Room#: [id number] A Chief Complaint Patient presents with Shortness of Breath Pt arrived from long-term via EMS. Pt was starting dialysis and [...] Klebsiella pneumonia with lung abscess presented to [place] ED with worsening shortness of breath. He [...] in upper abdomen He was transferred from [place] ED to [facility] due to bed availability Nephrology consulted, [...] MD Division of Hospital Medicine Inpatient Medical Services/[facility] [1] Past Medical History: Diagnosis Date Acute renal failure (ARF) ([facility]) 10/19/2019 Anemia 12/30/2021 Calcification of abdominal aorta ([facility]) 10/08/202309/[address] abd Diverticulosis 10/08/2023 ESRD on hemodialysis ([facility]) ([facility]) 10/26/2019 Hemodialysis patient ([facility]) ([facility]) HTN (hypertension) 12/01/2022 Hypertension IgA nephropathy IgA nephropathy determined by biopsy of kidney 10/26/2019 Missed vaccination due to patient refusal 10/08/2023 Has a number of non-scientific based beliefs which interfere with his understanding and acceptance of the medical benefit of vaccination. Nonrheumatic aortic valve stenosis 10/08/2023 Paroxysmal A-fib ([facility]) ([facility]) 08/18/2023 Tobacco abuse 10/08/2023 [2] Lidocaine, 1 [...] History: Diagnosis Date Acute renal failure (ARF) ([facility]) 10/19/2019 Anemia 12/30/2021 Calcification of abdominal aorta ([facility]) 10/08/202309/[address] abd Diverticulosis 10/08/2023 ESRD on hemodialysis ([facility]) ([facility]) 10/26/2019 Hemodialysis patient ([facility]) ([facility]) HTN (hypertension) 12/01/2022 Hypertension IgA nephropathy IgA nephropathy determined by biopsy of kidney 10/26/2019 Missed vaccination due to patient refusal 10/08/2023 Has a number of non-scientific based beliefs which interfere with his understanding and acceptance of the medical benefit of vaccination. Nonrheumatic aortic valve stenosis 10/08/2023 Paroxysmal A-fib ([facility]) ([facility]) 08/18/2023 Tobacco abuse 10/08/2023 Nephrology Progress Note [...] any questions or concerns Bree Molina APRN WELLNESS NURSE RN A-G SAMPLE SHOE INSPECTOR AND REWORKER [facility] [place] [phone] Pt seen and examined independently by me. I reviewed with DENIA-SAMIA the medical history and the findings on physical examination. I discussed the patient s diagnosis and concur with the treatment plan as documented in his note. Please call [phone] or message me through Hybrent with any questions or concerns. [facility] ([facility]) Inpatient Warfarin Consult HPI: Jun Snyder is a 59 y.o. male admitted on 03/13/2025 for SOB (shortness of breath) [R06.02] Medical History[1] Patient is on warfarin for Heart Valve Replacement and has a goal INR 2.0 - 3.0. Warfarin is currently managed by [facility], will be followed by [facility] after return to home. Pt's home dose of warfarin is 1.5 mg on , , Sat and 1 mg all other days [...] accordingly 3. Will facilitate f/u at [facility] upon discharge Kvng Dugan PharmPhoebe 2024 Candidate [facility] is available daily [phone] via alooma. If no response on Hybrent Chat then please page [phone]. [1] Past Medical History: Diagnosis Date Acute renal failure (ARF) ([facility]) 10/19/2019 Anemia 12/30/2021 Calcification of abdominal aorta ([facility]) 10/08/202309/[address] abd Diverticulosis 10/08/2023 ESRD on hemodialysis ([facility]) ([facility]) 10/26/2019 Hemodialysis patient ([facility]) ([facility]) HTN (hypertension) 12/01/2022 Hypertension IgA nephropathy IgA nephropathy determined by biopsy of kidney 10/26/2019 Missed vaccination due to patient refusal 10/08/2023 Has a number of non-scientific based beliefs which interfere with his understanding and acceptance of the medical benefit of vaccination. Nonrheumatic aortic valve stenosis 10/08/2023 Paroxysmal A-fib ([facility]) ([facility]) 08/18/2023 Tobacco abuse 10/08/2023 Cosigned by Tiffanie Dial RPh at 03/15/2025 1:17 PM EDT Images from the original note were not included. [facility] Wound VAC Progress Note Jun Snyder AGE: [...] apply Betadine and allow to dry, leave STRATEGIC PARTNER DEVELOPMENT MANAGER daily and PRN Nutritional support Wound Care to follow Recommend to follow up at [facility] wound care center after hospital discharge. [...] History: Diagnosis Date Acute renal failure (ARF) ([facility]) 10/19/2019 Anemia 12/30/2021 Calcification of abdominal aorta ([facility]) 10/08/202309/[address] abd Diverticulosis 10/08/2023 ESRD on hemodialysis ([facility]) ([facility]) 10/26/2019 Hemodialysis patient ([facility]) ([facility]) HTN (hypertension) 12/01/2022 Hypertension IgA nephropathy IgA nephropathy determined by biopsy of kidney 10/26/2019 Missed vaccination due to patient refusal 10/08/2023 Has a number of non-scientific based beliefs which interfere with his understanding and acceptance of the medical benefit of vaccination. Nonrheumatic aortic valve stenosis 10/08/2023 Paroxysmal A-fib ([facility]) ([facility]) 08/18/2023 Tobacco abuse 10/08/2023 [2] Past Surgical History: Procedure Laterality Date APPENDECTOMY CARDIAC CATHETERIZATION N/A 10/09/2024 Performed by Bob Watson MD at [facility] Cardiac Cath/EP Lab CARDIAC CATHETERIZATION Bilateral 11/01/2024 Performed by Bob Watson MD at [facility] Cardiac Cath/EP Lab CARDIAC CATHETERIZATION N/A 11/01/2024 Performed by Bob Watson MD at [facility] Cardiac Cath/EP Lab COLONOSCOPY N/A 01/24/2025 Performed by Chadd Davis MD at [facility] ENDOSCOPY FISTULAGRAM (HISTORICAL) Left 09/15/2021 LEFT UPPER ARM HX AV FISTULA CREATION IR EMBOLIZATION 10/14/2024 IR EMBOLIZATION 10/14/2024 [facility] SPECIAL PROCEDURES IR FISTULAGRAM 08/07/2022 IR FISTULAGRAM [...] original note were not included. PHYSICAL THERAPY [facility] Initial Evaluation Name/MRN: Jair Snyder ([id number]) Evaluation Date: 03/14/2025 Date of : 1965 Admission Date: 03/13/2025 8:18 AM Age: 59 y.o. 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 01/12/2025 Acute respiratory failure with hypoxia ([facility]) [J96.01] 01/08/2025 Tracheostomy care ([facility]) [Z43.0] 01/08/2025 Pulmonary embolism ([facility]) 01/08/2025 Sacral osteomyelitis ([facility]) ([facility]) 01/03/2025 Pneumonia of both lungs due to methicillin susceptible Staphylococcus aureus (MSSA) ([facility]) 01/01/2025 Leukocytosis 12/30/2024 Decubitus ulcer of sacral region, unstageable ([facility]) 12/30/2024 Peritonitis due to fungus ([facility]) 11/30/2024 History of abdominal surgery 11/30/2024 Leg DVT (deep venous thromboembolism), acute, left ([facility]) 11/30/2024 Ischemic ulcer of toe of left foot, limited to breakdown of skin ([facility]) 11/30/2024 Tracheostomy dependence ([facility]) 11/30/2024 Pleural effusion 11/28/2024 Gastric ulceration 2024 Atrial flutter, unspecified type ([facility]) 10/03/2024 RSV (acute bronchiolitis due to respiratory syncytial virus) 10/03/2024 Diverticulosis 10/08/2023 Nonrheumatic aortic valve stenosis 10/08/2023 Calcification of abdominal aorta ([facility]) 10/08/2023 Missed vaccination due to patient refusal 10/08/2023 Tobacco abuse 10/08/2023 Alcohol use disorder in remission 10/08/2023 Paroxysmal A-fib ([facility]) ([facility]) 08/18/2023 HTN (hypertension) 12/01/2022 ESRD on hemodialysis ([facility]) ([facility]) 10/26/2019 IgA nephropathy determined by biopsy of [...] awareness. Social/Functional History Pt has been at [facility] for rehab for the past ~1 [...] Raw Score (No Stairs) : 15 [facility] Score: Walked 10 steps or more [...] of Care supervision is transferred to a [facility] Physical Therapist. Goals and/or treatment plan was established in collaboration with patient/family/other representatives. [1] Past Medical History: Diagnosis Date Acute renal failure (ARF) ([facility]) 10/19/2019 Anemia 12/30/2021 Calcification of abdominal aorta ([facility]) 10/08/202309/[address] abd Diverticulosis 10/08/2023 ESRD on hemodialysis ([facility]) ([facility]) 10/26/2019 Hemodialysis patient ([facility]) ([facility]) HTN (hypertension) 12/01/2022 Hypertension IgA nephropathy IgA nephropathy determined by biopsy of kidney 10/26/2019 Missed vaccination due to patient refusal 10/08/2023 Has a number of non-scientific based beliefs which interfere with his understanding and acceptance of the medical benefit of vaccination. Nonrheumatic aortic valve stenosis 10/08/2023 Paroxysmal A-fib ([facility]) ([facility]) 08/18/2023 Tobacco abuse 10/08/2023 [2] Past Surgical History: Procedure Laterality Date APPENDECTOMY CARDIAC CATHETERIZATION N/A 10/09/2024 Performed by Bob Watson MD at [facility] Cardiac Cath/EP Lab CARDIAC CATHETERIZATION Bilateral 11/01/2024 Performed by Bob Watson MD at [facility] Cardiac Cath/EP Lab CARDIAC CATHETERIZATION N/A 11/01/2024 Performed by Bob Watson MD at [facility] Cardiac Cath/EP Lab COLONOSCOPY N/A 01/24/2025 Performed by Chadd Davis MD at [facility] ENDOSCOPY FISTULAGRAM (HISTORICAL) Left 09/15/2021 LEFT UPPER ARM HX AV FISTULA CREATION IR EMBOLIZATION 10/14/2024 IR EMBOLIZATION 10/14/2024 [facility] SPECIAL PROCEDURES IR FISTULAGRAM 08/07/2022 IR FISTULAGRAM 08/07/2022 [facility] IR IMAGING TONSILLECTOMY (HISTORICAL) Hospitalist Progress Note Subjective: Admit Date: 03/13/2025 PCP: Leilani Troncoso Room#: [id number] A Chief Complaint Patient presents with Shortness of Breath Pt arrived from long-term via EMS. Pt was starting dialysis and [...] Klebsiella pneumonia with lung abscess presented to [place] ED with worsening shortness of breath. He [...] in upper abdomen He was transferred from [place] ED to [facility] due to bed availability Nephrology consulted, [...] MD Division of Hospital Medicine Inpatient Medical Services/[facility] [1] Past Medical History: Diagnosis Date Acute renal failure (ARF) ([facility]) 10/19/2019 Anemia 12/30/2021 Calcification of abdominal aorta ([facility]) 10/08/202309/[address] abd Diverticulosis 10/08/2023 ESRD on hemodialysis ([facility]) ([facility]) 10/26/2019 Hemodialysis patient ([facility]) ([facility]) HTN (hypertension) 12/01/2022 Hypertension IgA nephropathy IgA nephropathy determined by biopsy of kidney 10/26/2019 Missed vaccination due to patient refusal 10/08/2023 Has a number of non-scientific based beliefs which interfere with his understanding and acceptance of the medical benefit of vaccination. Nonrheumatic aortic valve stenosis 10/08/2023 Paroxysmal A-fib ([facility]) ([facility]) 08/18/2023 Tobacco abuse 10/08/2023 [2] Lidocaine, 1 patch, Topical, Daily metoprolol tartrate, 25 mg, Oral, BID pantoprazole, 40 mg, Oral, BID AC sevelamer carbonate, 800 mg, Oral, TID WC sodium zirconium cyclosilicate, 5 g, Oral, Daily [3] PRN medications: acetaminophen OR acetaminophen, ipratropium-albuterol, melatonin, ondansetron ODT OR ondansetron, polyethylene glycol (PEG) 3350 [4] [5] Past Medical History: Diagnosis Date Acute renal failure (ARF) ([facility]) 10/19/2019 Anemia 12/30/2021 Calcification of abdominal aorta ([facility]) 10/08/202309/[address] abd Diverticulosis 10/08/2023 ESRD on hemodialysis ([facility]) ([facility]) 10/26/2019 Hemodialysis patient ([facility]) ([facility]) HTN (hypertension) 12/01/2022 Hypertension IgA nephropathy IgA nephropathy determined by biopsy of kidney 10/26/2019 Missed vaccination due to patient refusal 10/08/2023 Has a number of non-scientific based beliefs which interfere with his understanding and acceptance of the medical benefit of vaccination. Nonrheumatic aortic valve stenosis 10/08/2023 Paroxysmal A-fib ([facility]) ([facility]) 08/18/2023 Tobacco abuse 10/08/2023 [facility] Anticoagulation Management Service ([facility]) Inpatient Warfarin [...] accordingly 3. Will facilitate f/u at [facility] upon discharge Tiffanie Dial RPh, PharmD [facility] is available daily [phone] via Hybrent Chat. If no response on Epic Chat then please page [phone]. [1] Past Medical History: Diagnosis Date Acute renal failure (ARF) ([facility]) 10/19/2019 Anemia 12/30/2021 Calcification of abdominal aorta ([facility]) 10/08/202309/[address] abd Diverticulosis 10/08/2023 ESRD on hemodialysis ([facility]) ([facility]) 10/26/2019 Hemodialysis patient ([facility]) ([facility]) HTN (hypertension) 12/01/2022 Hypertension IgA nephropathy IgA nephropathy determined by biopsy of kidney 10/26/2019 Missed vaccination due to patient refusal 10/08/2023 Has a number of non-scientific based beliefs which interfere with his understanding and acceptance of the medical benefit of vaccination. Nonrheumatic aortic valve stenosis 10/08/2023 Paroxysmal A-fib ([facility]) ([facility]) 08/18/2023 Tobacco abuse 10/08/2023 documented in this encounter [facility] 03-21-2025 Note Formatting of this n ote might be different from the original. Care Management Progress Note Short Medical why still here: Heparin gtt stopped today. . INR 2.9 today. Getting Coumadin. Refusing to work with therapy. They would like to skill him if able. Planned Discharge Disposition: Jail/Residential Care Barriers/Today we still Wait: Administering IV medications, Test results (comment) Length of Stay (Days): 8 GMLOS: 3.9 [facility] 03-21-2025 Note Formatting of this n ote might be different from the original. Care Management Progress Note Short Medical why still here: Heparin gtt stopped today. . INR 2.9 today. Getting Coumadin. Refusing to work with therapy. They would like to skill him if able. Planned Discharge Disposition: Jail/Residential Care Barriers/Today we still Wait: Administering IV medications, Test results (comment) Length of Stay (Days): 8 GMLOS: 3.9 T [facility] 03-21-2025 Plan of care note Problem: Knowledge [...] and maintained or improved Outcome: Progressing T [facility] 03-20-2025 Nurse Note Patient Name: Jun Snyder Patient : 1965 Acct: [id number] Date of Admission: 03/13/2025 Room/Bed: [facility] A Code Status: Full [...] - Before each treatment: Dialysis Machine No.: [id number] RO Machine Number: [id number] Dialyzer Lot No.: [id number] Tubing Lot Number: [id number] All Connections Secure: Yes Venous Parameters Set: Yes Arterial Parameters Set: Yes NS Bag: Yes Saline Line Double Clamped: Yes Dialyzer: Nipro Prime Volume (mL): 200 mL RO Machine Number: [id number] RO Machine Log Sheet Completed: Yes Machine Alarm Self Test: Completed, Passed (03/20/251144) Air Foam Detector: Tested, Proper Function, pH Reading Extracorporeal Circuit Tested for Integrity: Yes Machine Conductivity: 13.8 Manual Conductivity: 13.8 Manual Ph: 7 Bleach Test (Neg): Yes Bath Temperature: 36 C (96.8 F) Conductivity Meter Serial #: [id number] Machine Functioning Alarm Free? Yes Dialysis Bath: [...] Other (Comment) (to inform patient arrival [facility] and need for orders) Provider [...] Active Problem List Diagnosis Anemia Paroxysmal A-fib ([facility]) ([facility]) HTN (hypertension) ESRD on hemodialysis ([facility]) ([facility]) IgA nephropathy determined by biopsy of kidney Diverticulosis Nonrheumatic aortic valve stenosis Calcification of abdominal aorta ([facility]) Missed vaccination due to patient refusal Tobacco abuse Alcohol use disorder in remission Atrial flutter, unspecified type ([facility]) RSV (acute bronchiolitis due to respiratory syncytial virus) Aortic stenosis Upper GI bleed S/P AVR Acute hypoxic respiratory failure ([facility]) Acute encephalopathy Pneumoperitoneum Gastric ulceration Severe malnutrition ([facility]) ([facility]) Pleural effusion Peritonitis due to fungus ([facility]) History of abdominal surgery Leg DVT (deep venous thromboembolism), acute, left ([facility]) Ischemic ulcer of toe of left foot, limited to breakdown of skin ([facility]) Tracheostomy dependence ([facility]) Leukocytosis Decubitus ulcer of sacral region, unstageable ([facility]) Pneumonia of both lungs due to methicillin susceptible Staphylococcus aureus (MSSA) ([facility]) Sacral osteomyelitis ([facility]) ([facility]) Acute respiratory failure with hypoxia ([facility]) [J96.01] Tracheostomy care ([facility]) [Z43.0] Pulmonary embolism ([facility]) jail (current) use of antibiotics Complication of tracheostomy ([facility]) ([facility]) BRBPR (bright red blood per rectum) Hemoptysis SOB (shortness of breath) Moderate malnutrition ([facility]) ([facility]) [3] heparin, 5-30 Units/kg/hr, Last Rate: 20 Units/kg/hr (03/20/25 1328) [facility] 03-20-2025 Note Formatting of this n ote might be different from the original. Care Management Progress Note Short Medical why still here: Heparin gtt bridging to Coumadin. INR 1.9 today Planned Discharge Disposition: Jail/Residential Care Barriers/Today we still Wait: Clinical stability Length of Stay (Days): 7 GMLOS: 3.9 [facility] 03-20-2025 Note Formatting of this n ote might be different from the original. Care Management Progress Note Short Medical why still here: Heparin gtt bridging to Coumadin. INR 1.9 today Planned Discharge Disposition: Jail/Residential Care Barriers/Today we still Wait: Clinical stability Length of Stay (Days): 7 GMLOS: 3.9 [facility] 03-20-2025 Plan of care note [...] monitored and maintained or improved Outcome: Progressing [facility] 03-19-2025 Note Formatting of this n ote might be different from the original. Care Management Progress Note Continues on a Heparin gtt. Trying to bridge to Coumadin. INR 1.6 today. When stable plan is to return to [facility].. . Length of Stay (Days): 6 GMLOS: 3.9 [facility] 03-19-2025 Note Formatting of this n ote might be different from the original. Care Management Progress Note Continues on a Heparin gtt. Trying to bridge to Coumadin. INR 1.6 today. When stable plan is to return to [facility].. . Length of Stay (Days): 6 GMLOS: 3.9 [facility] 03-19-2025 Plan of care note [...] monitored and maintained or improved Outcome: Progressing [facility] 03-19-2025 Plan of care note [...] monitored and maintained or improved Outcome: Progressing [facility] 03-19-2025 Nurse Note Wound vac suction failing-pt requesting wound vac removed for now. Black foam dressing removed and wound packed with saline-soaked gauze covered with DSD [facility] 03-19-2025 Nurse Note Pt adamantly refusing telemetry at this time, ripped off monitor and threw to the floor [facility] 03-18-2025 Note Problem: Pain - Adul t Goal: Verbalizes/displays adequate comfort level or baseline comfort level Outcome: Progressing Problem: Safety - Adult Goal: Free from fall injury Outcome: Progressing [facility] 03-18-2025 Plan of care note Problem: Pain - Adult Goal: Verbalizes/displays adequate comfort level or baseline comfort level Outcome: Progressing Problem: Safety - Adult Goal: Free from fall injury Outcome: Progressing T [facility] 03-17-2025 Plan of care note Problem: Knowledge [...] monitored and maintained or improved Outcome: Progressing [facility] 03-17-2025 Note Problem: Pain - Adul t Goal: Verbalizes/displays adequate comfort level or baseline comfort level Outcome: Progressing Problem: Safety - Adult Goal: Free from fall injury Outcome: Progressing [facility] 03-17-2025 Plan of care note Problem: Pain - Adult Goal: Verbalizes/displays adequate comfort level or baseline comfort level Outcome: Progressing Problem: Safety - Adult Goal: Free from fall injury Outcome: Progressing T [facility] 03-17-2025 Nurse Note Patient Name: Jun Snyder Patient : 1965 Acct: [id number] Date of Admission: 03/13/2025 Room/Bed: [facility] A Code Status: Full [...] - Before each treatment: Dialysis Machine No.: [id number] RO Machine Number: [id number] Dialyzer Lot No.: [id number] Tubing Lot Number: [id number] All Connections Secure: Yes Venous Parameters Set: Yes Arterial Parameters Set: Yes NS Bag: Yes Saline Line Double Clamped: Yes Dialyzer: Nipro Prime Volume (mL): 200 mL RO Machine Number: [id number] RO Machine Log Sheet Completed: Yes Machine Alarm Self Test: Completed, Passed (03/17/25 0803) Air Foam Detector: Tested, Proper Function, pH Reading Extracorporeal Circuit Tested for Integrity: Yes Machine Conductivity: 13.6 Manual Conductivity: 13.6 Manual Ph: 7 Bleach Test (Neg): Yes Bath Temperature: 36 C (96.8 F) Conductivity Meter Serial #: [id number] Machine Functioning Alarm Free? Yes Dialysis Bath: K+ (Potassium): 2 Ca+ (Calcium): 2.5 Na+ (Sodium): 135 HCO3 (Bicarb): 35 Chlorine Testing - Before each treatment and every 4 hours: Time On: 840 Time Off: 1141 Treatment Goal: 2L Weight [...] Other (Comment) (to inform patient arrival from [facility] and need for orders) Provider [...] Active Problem List Diagnosis Anemia Paroxysmal A-fib ([facility]) (HCC) HTN (hypertension) ESRD on hemodialysis ([facility]) ([facility]) IgA nephropathy determined by biopsy of kidney Diverticulosis Nonrheumatic aortic valve stenosis Calcification of abdominal aorta ([facility]) Missed vaccination due to patient refusal Tobacco [...] (CMS/HCC) (HCC) Acute respiratory failure with hypoxia ([facility]) [J96.01] Tracheostomy care ([facility]) [Z43.0] Pulmonary embolism ([facility]) 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 Complication of tracheostomy (CMS/HCC) ([facility]) BRBPR (bright red blood per rectum) Hemoptysis SOB (shortness of breath) Moderate malnutrition (CMS/HCC) ([facility]) [3] heparin, 5-30 Units/kg/hr T [facility] 03-16-2025 Plan of care note Problem: Knowledge Deficit Goal: Patient/family/caregiver demonstrates understanding of disease process, treatment plan, medications, and discharge instructions Outcome: Progressing Problem: Potential for Compromised Skin Integrity Goal: Nutritional status is improving Outcome: Progressing T [facility] 03-16-2025 Plan of care note Problem: Knowledge [...] Interventions Goal: Assess Nutritional Intake Outcome: Progressing [facility] 03-16-2025 Note Formatting of this n ote might be different from the original. Care Management Progress Note Going to dialysis today. Refusing surgery for gangrenous toes. Anticipate discharge back to [facility] soon. . Length of Stay (Days): 3 GMLOS: 3.9 T [facility] 03-16-2025 Note Formatting of this n ote might be different from the original. Care Management Progress Note Going to dialysis today. Refusing surgery for gangrenous toes. Anticipate discharge back to [facility] soon. . Length of Stay (Days): 3 GMLOS: 3.9 [facility] 03-16-2025 Note Care Management Prog ress Note Going to dialysis today. Refusing surgery for gangrenous toes. Anticipate discharge back to [facility] soon. . Length of Stay (Days): 3 GMLOS: 3.9 [facility] 03-15-2025 Note Formatting of this n ote might be different from the original. ELIA reviewed chart. Copy of DPOA found in electronic chart naming Omar connell as agent. Care Management Return to Hospital Readmission questionnaire- N/A- pt form [facility]CF. [facility] 03-15-2025 Note Formatting of this n ote might be different from the original. ELIA reviewed chart. Copy of DPOA found in electronic chart naming Omar connell as agent. Care Management Return to Hospital Readmission questionnaire- N/A- pt form [facility]CF. [facility] 03-15-2025 Note SW reviewed chart. Copy of DPOA found in electronic chart naming sonOmar as agent. Care Management Return to Hospital Readmission questionnaire- N/A- pt form [facility]CF. [facility] 03-15-2025 Consult note Associated Order (s): [...] 0 min Stress: Stress Concern Present (02/21/2025) [employer] [place] [facility] [employer] - Occupational Stress Questionnaire Feeling of Stress : To some extent Social Connections: Unknown (02/21/2025) Social Connection and Isolation Panel [NHANES] Frequency of Communication with Friends and Family: More than three times a week Frequency of Social Gatherings with Friends and Family: Patient declined Attends Druze Services: Patient declined Active Member of Clubs [...] Department of Surgery General Surgery Resident Pager: [phone] PAGING / Hybrent Secure Chat: From -p (- weekends): Hybrent Secure Chat (FIRST) or Pager above (EMERGENT/Second) From 6p-6a (-s): Find resident physician under [facility] Surgery - General - Surgical ICU Patients: Select 'ACH GEN SURG Night Float ICU RES' or "Page [phone]" - Surgical Floor Patients: Select 'ACH GEN [...] This note may have been dictated using Tripvi Edition and/or NEHP Voice Recognition Feature. The document was proofread; however, unrecognized voice recognition paid search marketing strategist errors may be present. [1] Past Medical History: Diagnosis Date Acute renal failure (ARF) ([facility]) 10/19/2019 Anemia 12/30/2021 Calcification of abdominal aorta ([facility]) 10/08/202309/[address] abd Diverticulosis 10/08/2023 ESRD on hemodialysis ([facility]) ([facility]) 10/26/2019 Hemodialysis patient ([facility]) ([facility]) HTN (hypertension) 12/01/2022 Hypertension IgA nephropathy IgA nephropathy determined by biopsy of kidney 10/26/2019 Missed vaccination due to patient refusal 10/08/2023 Has a number of non-scientific based beliefs which interfere with his understanding and acceptance of the medical benefit of vaccination. Nonrheumatic aortic valve stenosis 10/08/2023 Paroxysmal A-fib ([facility]) ([facility]) 08/18/2023 Tobacco abuse 10/08/2023 [2] Past Surgical History: Procedure Laterality Date APPENDECTOMY CARDIAC CATHETERIZATION N/A 10/09/2024 Performed by Bob Watson MD at [facility] Cardiac Cath/EP Lab CARDIAC CATHETERIZATION Bilateral 11/01/2024 Performed by Bob Watson MD at [facility] Cardiac Cath/EP Lab CARDIAC CATHETERIZATION N/A 11/01/2024 Performed by Bob Watson MD at [facility] Cardiac Cath/EP Lab COLONOSCOPY N/A 01/24/2025 Performed by Chadd Davis MD at [facility] ENDOSCOPY FISTULAGRAM (HISTORICAL) Left 09/15/2021 LEFT UPPER ARM HX AV FISTULA CREATION IR EMBOLIZATION 10/14/2024 IR EMBOLIZATION 10/14/2024 [facility] SPECIAL PROCEDURES IR FISTULAGRAM 08/07/2022 IR FISTULAGRAM 08/07/2022 [facility] IR IMAGING TONSILLECTOMY (HISTORICAL) [3] [4] PRN [...] planning if and when patient is willing. [employer] Phone: 03-15-2025 Consult note Associated Order (s): [...] 0 min Stress: Stress Concern Present (02/21/2025) [employer] [place] [facility] [employer] - Occupational Stress Questionnaire Feeling of Stress : To some extent Social Connections: Unknown (02/21/2025) Social Connection and Isolation Panel [NHANES] Frequency of Communication with Friends and Family: More than three times a week Frequency of Social Gatherings with Friends and Family: Patient declined Attends Druze Services: Patient declined Active Member of Clubs [...] Department of Surgery General Surgery Resident Pager: [phone] PAGING / Hybrent Secure Chat: From 6a-6p (- weekends): Epic [...] This note may have been dictated using [employer] Edition and/or NEHP Voice Recognition Feature. The document was proofread; however, unrecognized voice recognition paid search marketing strategist errors may be present. [1] Past Medical History: Diagnosis Date Acute renal failure (ARF) ([facility]) 10/19/2019 Anemia 12/30/2021 Calcification of abdominal aorta ([facility]) 10/08/202309/[address] abd Diverticulosis 10/08/2023 ESRD on hemodialysis ([facility]) ([facility]) 10/26/2019 Hemodialysis patient ([facility]) ([facility]) HTN (hypertension) 12/01/2022 Hypertension IgA nephropathy IgA nephropathy determined by biopsy of kidney 10/26/2019 Missed vaccination due to patient refusal 10/08/2023 Has a number of non-scientific based beliefs which interfere with his understanding and acceptance of the medical benefit of vaccination. Nonrheumatic aortic valve stenosis 10/08/2023 Paroxysmal A-fib ([facility]) ([facility]) 08/18/2023 Tobacco abuse 10/08/2023 [2] Past Surgical History: Procedure Laterality Date APPENDECTOMY CARDIAC CATHETERIZATION N/A 10/09/2024 Performed by Bob Watson MD at [facility] Cardiac Cath/EP Lab CARDIAC CATHETERIZATION Bilateral 11/01/2024 Performed by Bob Watson MD at [facility] Cardiac Cath/EP Lab CARDIAC CATHETERIZATION N/A 11/01/2024 Performed by Bob Watson MD at [facility] Cardiac Cath/EP Lab COLONOSCOPY N/A 01/24/2025 Performed by Chadd Davis MD at [facility] ENDOSCOPY FISTULAGRAM (HISTORICAL) Left 09/15/2021 LEFT UPPER ARM HX AV FISTULA CREATION IR EMBOLIZATION 10/14/2024 IR EMBOLIZATION 10/14/2024 [facility] SPECIAL PROCEDURES IR FISTULAGRAM 08/07/2022 IR FISTULAGRAM [...] MS, RD, LD Clinical Dietitian Contact: or Hybrent Chat (dial *[phone] from hospital phone) Associated Order(s): IP CONSULT [...] ascites and omental edema in upper abdomen.) Pastoral Assistant Strength: Not Performed Chief Complaint Patient presents with Shortness of Breath Pt arrived from long-term via EMS. Pt was starting dialysis and [...] On: Kcal/kg Weight Used for Energy Requirements: [place] Weight for Energy Calculation (kg): 75 kg Total Energy Requirements (kcals/day): 7379-8113 (25-30 kcals/kg) Weight Used for Protein Requirements: [place] Weight in Kg Used for Protein Requirements: [...] TSH 6.88 (H) 03/13/2025 FREET4 0.89 03/15/2025 [id number] 959 (H) 10/22/2019 FOLATE 9.2 10/22/2019 FERRITIN [...] for updated dry wt - per nephro) [place] Body Weight (lbs) (Calculated): 166 lbs [place] Body Weight (Kg) (Calculated): 75 kg % [place] Body Weight (Calculated): 88.6 % BMI (kg/m2) [...] Yasemin Jonescheco MS, RD, LD Contact: or Hybrent Chat (dial *[phone] from hospital phone) [1] Past Medical History: Diagnosis Date Acute renal failure (ARF) (HCC) 10/19/2019 Anemia 12/30/2021 Calcification of abdominal aorta (HCC) 10/08/202309/[address] abd Diverticulosis 10/08/2023 ESRD on hemodialysis ([facility]) (HCC) 10/26/2019 Hemodialysis patient ([facility]/HCC) (HCC) HTN (hypertension) 12/01/2022 Hypertension IgA nephropathy [...] 10/09/2024 Performed by Bob Watson MD at [facility] Cardiac Cath/EP Lab CARDIAC CATHETERIZATION Bilateral 11/01/2024 Performed by Bob Watson MD at [facility] Cardiac Cath/EP Lab CARDIAC CATHETERIZATION N/A 11/01/2024 Performed by Bob Watson MD at [facility] Cardiac Cath/EP Lab COLONOSCOPY N/A 01/24/2025 Performed by Chadd Davis MD at [facility] ENDOSCOPY FISTULAGRAM (HISTORICAL) Left 09/15/2021 LEFT UPPER ARM HX AV FISTULA CREATION IR EMBOLIZATION 10/14/2024 IR EMBOLIZATION 10/14/2024 [facility] SPECIAL PROCEDURES IR FISTULAGRAM 08/07/2022 IR FISTULAGRAM 08/07/2022 [facility] IR IMAGING TONSILLECTOMY (HISTORICAL) [3] Lidocaine, 1 patch, Topical, Daily metoprolol tartrate, 25 mg, Oral, q6h pantoprazole, 40 mg, Oral, BID AC sevelamer carbonate, 800 mg, Oral, TID WC sodium zirconium cyclosilicate, 5 g, Oral, Daily warfarin, 2.5 mg, Oral, Once [4] [facility] [place] [facility] Consult Note Consults MELO Ramirez is [...] 0 min Stress: Stress Concern Present (02/21/2025) [employer] [place] [employer] - Occupational Stress Questionnaire Feeling of Stress : To some extent Social Connections: Unknown (02/21/2025) Social Connection and Isolation Panel [NHANES] Frequency of Communication with Friends and Family: More than three times a week Frequency of Social Gatherings with Friends and Family: Patient declined Attends Druze Services: Patient declined Active Member of Clubs [...] and sacral wound. Please message me through [employer] chat with any questions or concerns. Wellington Nicole MD 03/14/2025 10:43 AM [facility] [place] [address], [address] [place] [address] Office: [phone] [1] Past Medical History: Diagnosis Date Acute renal failure (ARF) ([facility] CARE) 10/19/2019 Anemia 12/30/2021 Calcification of abdominal aorta ([facility]) 10/08/202309/[address] abd Diverticulosis 10/08/2023 ESRD on hemodialysis ([facility]) ([facility]) 10/26/2019 Hemodialysis patient ([facility]) ([facility]) HTN (hypertension) 12/01/2022 Hypertension IgA nephropathy IgA nephropathy determined by biopsy of kidney 10/26/2019 Missed vaccination due to patient refusal 10/08/2023 Has a number of non-scientific based beliefs which interfere with his understanding and acceptance of the medical benefit of vaccination. Nonrheumatic aortic valve stenosis 10/08/2023 Paroxysmal A-fib ([facility]) ([facility]) 08/18/2023 Tobacco abuse 10/08/2023 [2] Family History [...] 3350 Associated Order(s): IP CONSULT TO CARDIOLOGY [facility] [place] [facility] Cardiology /Electrophysiology Consult Note Reason for Consult/Chief Complaint: Volume overload, afib rvr Referring provider: Dr Kidd Established instrument lens inspector: Dr Shah History of Present Illness: Jun [...] to select rehab. He recently was at [facility] for Klebsiella pneumonia, hemoptysis and [...] Lying Pulse: 112 115 (!) 122 Resp: 16 Temp: 36.5 C (97.7 F) 36.4 [...] of Cardiovascular Disease, Division of Heart Failure [facility] [place] 3:25 PM 03/14/25 Associated Order(s): INPATIENT CONSULT TO WOUND CARE PROVIDERS Images from the original note were not included. [facility] Wound VAC CONSULT Note Jun Snyder AGE: [...] to follow Recommend to follow up at [facility] wound care center after hospital discharge. Any questions or concerns please secure chat "[facility] wound/ostomy". Thank you for the consult! I [...] History: Diagnosis Date Acute renal failure (ARF) ([facility]) 10/19/2019 Anemia 12/30/2021 Calcification of abdominal aorta ([facility]) 10/08/202309/[address] abd Diverticulosis 10/08/2023 ESRD on hemodialysis ([facility]) ([facility]) 10/26/2019 Hemodialysis patient ([facility]) ([facility]) HTN (hypertension) 12/01/2022 Hypertension IgA nephropathy IgA nephropathy determined by biopsy of kidney 10/26/2019 Missed vaccination due to patient refusal 10/08/2023 Has a number of non-scientific based beliefs which interfere with his understanding and acceptance of the medical benefit of vaccination. Nonrheumatic aortic valve stenosis 10/08/2023 Paroxysmal A-fib ([facility]) ([facility]) 08/18/2023 Tobacco abuse 10/08/2023 [2] Past Surgical History: Procedure Laterality Date APPENDECTOMY CARDIAC CATHETERIZATION N/A 10/09/2024 Performed by Bob Watson MD at [facility] Cardiac Cath/EP Lab CARDIAC CATHETERIZATION Bilateral 11/01/2024 Performed by Bob Watson MD at [facility] Cardiac Cath/EP Lab CARDIAC CATHETERIZATION N/A 11/01/2024 Performed by Bob Watson MD at [facility] Cardiac Cath/EP Lab COLONOSCOPY N/A 01/24/2025 Performed by Chadd Davis MD at [facility] ENDOSCOPY FISTULAGRAM (HISTORICAL) Left 09/15/2021 LEFT UPPER ARM HX AV FISTULA CREATION IR EMBOLIZATION 10/14/2024 IR EMBOLIZATION 10/14/2024 [facility] SPECIAL PROCEDURES IR FISTULAGRAM 08/07/2022 IR FISTULAGRAM [...] 4:44 PM EDT documented in this encounter [facility] 03-15-2025 Note Patient currently of f unit, will attempt smoking cessation counseling at a later date. [facility] 03-15-2025 Nurse Note Patient Name: Jun Snyder Patient : 1965 Acct: [id number] Date of Admission: 03/13/2025 Room/Bed: [facility] A Code Status: Full [...] - Before each treatment: Dialysis Machine No.: [id number] Machine Number: [id number] Dialyzer Lot No.: [id number] Tubing Lot Number: [id number] All Connections Secure: Yes Venous Parameters Set: Yes Arterial Parameters Set: Yes NS Bag: Yes Saline Line Double Clamped: Yes Dialyzer: Nipro Prime Volume (mL): 200 mL RO Machine Number: [id number] RO Machine Log Sheet Completed: Yes Machine Alarm Self Test: Completed, Passed (03/15/25 1215) Air Foam Detector: Tested, Proper Function, pH Reading Extracorporeal Circuit Tested for Integrity: Yes Machine Conductivity: 13.8 Manual Conductivity: 13.7 Manual Ph: 7 Bleach Test (Neg): Yes Bath Temperature: 36 C (96.8 F) Conductivity Meter Serial #: [id number] Machine Functioning Alarm Free? Yes Dialysis Bath: [...] Other (Comment) (to inform patient arrival from [facility] and need for orders) Provider Name: dr sanon Provider Role: Attending physician Method of Communication: Secure chat Response: At bedside Provider Role: Attending physician Method of Communication: Secure chat Response: At bedside Handoff complete and report given to Primary RN at 6035. Primary RN (First Initial, Last Name, Title): [...] Active Problem List Diagnosis Anemia Paroxysmal A-fib ([facility]) ([facility]) HTN (hypertension) ESRD on hemodialysis ([facility]) ([facility]) IgA nephropathy determined by biopsy of kidney Diverticulosis Nonrheumatic aortic valve stenosis Calcification of abdominal aorta ([facility]) Missed vaccination due to patient refusal Tobacco abuse Alcohol use disorder in remission Atrial flutter, unspecified type ([facility]) RSV (acute bronchiolitis due to respiratory syncytial virus) Aortic stenosis Upper GI bleed S/P AVR Acute hypoxic respiratory failure ([facility]) Acute encephalopathy Pneumoperitoneum Gastric ulceration Severe malnutrition ([facility]) ([facility]) Pleural effusion Peritonitis due to fungus ([facility]) History of abdominal surgery Leg DVT (deep venous thromboembolism), acute, left ([facility]) Ischemic ulcer of toe of left foot, limited to breakdown of skin ([facility]) Tracheostomy dependence ([facility]) Leukocytosis Decubitus ulcer of sacral region, unstageable ([facility]) Pneumonia of both lungs due to methicillin susceptible Staphylococcus aureus (MSSA) ([facility]) Sacral osteomyelitis ([facility]) (HCC) Acute respiratory failure with hypoxia ([facility]) [J96.01] Tracheostomy care ([facility]) [Z43.0] Pulmonary embolism (HCC) jail (current) use of antibiotics Complication of tracheostomy (CMS/HCC) (HCC) BRBPR (bright red blood per rectum) Hemoptysis SOB (shortness of breath) Moderate malnutrition (CMS/HCC) ([facility]) [3] [facility] 03-15-2025 Consult note Associated Order (s): IP CONSULT TO DIETITIAN See dietitian evortega dated 03/14/25. Pt tolerating diet well, was started on ensure plus HP BID during admission. Will continue to monitor labs, meds, po intakes and/or enteral nutrition tolerance, skin integrity, wt trends, and overall nutrition status - RD to follow weekly Yasemin Ceron MS, RD, LD Clinical Dietitian Contact: or Hybrent Chat (dial *[phone] from hospital phone) [facility] 03-15-2025 Plan of care note Problem: Knowledge [...] Interventions Goal: Assess Nutritional Intake Outcome: Progressing [facility] 03-15-2025 Note Formatting of this n ote might be different from the original. Care Management Progress Note Cardiology following. Pt in A flutter, trying rate control. Has wound vac on sacral area. Pt is refusing surgery. When stable is a bed hold at [facility]. . Length of Stay (Days): 2 GMLOS: No GMLOS Documented [facility] 03-15-2025 Note Formatting of this n ote might be different from the original. Care Management Progress Note Cardiology following. Pt in A flutter, trying rate control. Has wound vac on sacral area. Pt is refusing surgery. When stable is a bed hold at [facility]. . Length of Stay (Days): 2 GMLOS: No GMLOS Documented [facility] 03-15-2025 Nurse Note Wound Care consulted for Pressure Injury Prevention. Pt's Kee score= 14 on 03/13 Pt's pressure points assessed. Pt's Heels, Back, Elbows, Occiput and ears all intact. [place] and healed area noted to occiput. Pt moving lower extremities well in bed against gravity. Pt currently followed by Wound [facility] group for wounds to left toes 1-4 and sacrum with wound vac in place. For left toes, sacrum, and sacral wound vac assessments and treatment plan, please see Wound/Ostomy [employer] progress notes. Instructed pt on pressure injury prevention and importance of turning/postioning every 2hrs while in bed and every 15 min while sitting in chair. Instructed on use and care of waffle chair cushion. Verbalized understanding. Prevention Measures in place, including: [place] sheet with pillows/wedges, Heels elevated off bed on pillows, Zinc/Moisture Barrier ointment (obtained), Waffle chair cushion (obtained for pt). Skin Care precaution order set in place. Dietitian consult order placed d/t wounds. PT/OT consult in place. Will continue to follow pt. Please Vocera for any questions or concerns. Yari Pelletier RN [facility] 03-15-2025 Plan of care note Problem: Knowledge Deficit Goal: Patient/family/caregiver demonstrates understanding of disease process, treatment plan, medications, and discharge instructions Outcome: Progressing Problem: Problem Interventions Goal: Assess Nutritional Intake Outcome: Progressing [facility] 03-14-2025 Plan of care note Problem: [...] Interventions Goal: Assess Nutritional Intake Outcome: Progressing [facility] 03-14-2025 Consult note Associated Order (s): [...] ascites and omental edema in upper abdomen.) Pastoral Assistant Strength: Not Performed Chief Complaint Patient presents with Shortness of Breath Pt arrived from long-term via EMS. Pt was starting dialysis and [...] On: Kcal/kg Weight Used for Energy Requirements: [place] Weight for Energy Calculation (kg): 75 kg Total Energy Requirements (kcals/day): 4539-0148 (25-30 kcals/kg) Weight Used for Protein Requirements: [place] Weight in Kg Used for Protein Requirements: [...] TSH 6.88 (H) 03/13/2025 FREET4 0.89 03/15/2025 [id number] 959 (H) 10/22/2019 FOLATE 9.2 10/22/2019 FERRITIN [...] for updated dry wt - per nephro) [place] Body Weight (lbs) (Calculated): 166 lbs [place] Body Weight (Kg) (Calculated): 75 kg % [place] Body Weight (Calculated): 88.6 % BMI (kg/m2) [...] Discharge Planning: Too soon to determine Yasemin Elizabethsalvador MS, RD, LD Contact: or alooma (dial *[phone] from hospital phone) [1] Past Medical History: Diagnosis Date Acute renal failure (ARF) (HCC) 10/19/2019 Anemia 12/30/2021 Calcification of abdominal aorta ([facility]) 10/08/202309/[address] abd Diverticulosis 10/08/2023 ESRD on hemodialysis ([facility]) ([facility]) 10/26/2019 Hemodialysis patient ([facility]) ([facility]) HTN (hypertension) 12/01/2022 Hypertension IgA nephropathy IgA nephropathy determined by biopsy of kidney 10/26/2019 Missed vaccination due to patient refusal 10/08/2023 Has a number of non-scientific based beliefs which interfere with his understanding and acceptance of the medical benefit of vaccination. Nonrheumatic aortic valve stenosis 10/08/2023 Paroxysmal A-fib ([facility]) ([facility]) 08/18/2023 Tobacco abuse 10/08/2023 [2] Past Surgical History: Procedure Laterality Date APPENDECTOMY CARDIAC CATHETERIZATION N/A 10/09/2024 Performed by Bob Watson MD at [facility] Cardiac Cath/EP Lab CARDIAC CATHETERIZATION Bilateral 11/01/2024 Performed by Bob Watson MD at [facility] Cardiac Cath/EP Lab CARDIAC CATHETERIZATION N/A 11/01/2024 Performed by Bob Watson MD at [facility] Cardiac Cath/EP Lab COLONOSCOPY N/A 01/24/2025 Performed by Chadd Davis MD at [facility] ENDOSCOPY FISTULAGRAM (HISTORICAL) Left 09/15/2021 LEFT UPPER ARM HX AV FISTULA CREATION IR EMBOLIZATION 10/14/2024 IR EMBOLIZATION 10/14/2024 [facility] SPECIAL PROCEDURES IR FISTULAGRAM 08/07/2022 IR FISTULAGRAM 08/07/2022 SB IR IMAGING TONSILLECTOMY (HISTORICAL) [3] Lidocaine, 1 patch, Topical, Daily metoprolol tartrate, 25 mg, Oral, q6h pantoprazole, 40 mg, Oral, BID AC sevelamer carbonate, 800 mg, Oral, TID WC sodium zirconium cyclosilicate, 5 g, Oral, Daily warfarin, 2.5 mg, Oral, Once [4] [facility] 03-14-2025 Hospital Discharg e steven Jones RN - 03/14/2025 2:19 PM EDT My Heart Failure Action Plan Use the below chart as a guide for daily symptom monitoring after you obtain your morning weight. My Food Cart Attendant: Dr. Alyssa West [facility] at [facility] [phone] My Residential Monitor: [facility] [place] [address] [place], [place] [id number] My Diagnosis: Heart failure with improved ejection [...] 5 pounds in a week Call your Residential Monitor/Dialysis center!! My Diet Goal: General diet recommendations [...] 10/09/2024 Performed by Bob Watson MD at [facility] Cardiac Cath/EP Lab CARDIAC CATHETERIZATION Bilateral 11/01/2024 Performed by Bob Watson MD at [facility] Cardiac Cath/EP Lab CARDIAC CATHETERIZATION N/A 11/01/2024 Performed by Bob Watson MD at [facility] Cardiac Cath/EP Lab COLONOSCOPY N/A 01/24/2025 Performed by Chadd Davis MD at [facility] ENDOSCOPY FISTULAGRAM (HISTORICAL) Left 09/15/2021 LEFT UPPER ARM HX AV FISTULA CREATION IR EMBOLIZATION 10/14/2024 IR EMBOLIZATION 10/14/2024 [facility] SPECIAL PROCEDURES IR FISTULAGRAM 08/07/2022 IR FISTULAGRAM 08/07/2022 [facility] IR IMAGING TONSILLECTOMY (HISTORICAL) Immunization History: Immunization [...] failure with hypoxia (HCC) [J96.01] Tracheostomy care ([facility]) [Z43.0] Pulmonary embolism (HCC) jail (current) use of antibiotics Complication of tracheostomy [...] 03/21/25 155 lb (70.3 kg) Mental Status: {[facility] Patient Mental Status:51758} IV Access: {[facility] IV Access:15196} Nursing Mobility/ADLs: Walking {CHRISTY ADL:35917::"Independent"} Transfer {CHRISTY ADL:06873::"Independent"} Bathing {CHRISTY ADL:43827::"Independent"} Dressing {CHRISTY ADL:40121::"Independent"} Toileting {CHRISTY ADL:37759::"Independent"} Feeding {CHRISTY ADL:47507::"Independent"} Check Out Clerk {CHRISTY ADL:11008::"Independent"} Med Delivery {yes/no:23422} Wound Care Documentation and Therapy: Wound/Incision 11/13/24 Pressure Injury Sacrum (Active) Site Assessment Red;[place] 03/21/25 0402 Mahnaz-Wound Assessment [place] 03/13/251999 Drainage Description Sanguineous 03/13/251999 Odor Malodorous/putrid [...] Site Assessment Black;Painful 03/21/25 0402 Mahnaz-Wound Assessment [place] 03/21/25 0402 Odor None 03/18/25 1500 Drainage [...] Number of days: 7 Elimination: Continence: Bowel: {yes/no:91246} Bladder: {yes/no:65224} Urinary Catheter: {ROSENDO Urinary Catheter:51697} Colostomy/Ileostomy/Ileal Conduit: {YES / NO:} Date of Last BM: Intake/Output Summary (Last 24 hours) at 03/21/2025 1206 Last data filed at 03/20/2025 1523 Gross per 24 hour Intake 300 ml Output -- Net 300 ml I/O last 3 completed shifts: In: 1338.9 (19 mL/kg) [P.O.:240; I.V.:1098.9 (15.6 mL/kg)] Out: - (0 mL/kg) Weight: 70.3 kg Safety Concerns: {ROSENDO Safety Concerns:80490} Impairments/Disabilities: {ROSENDO Impairments/Disabilities:93626} Nutrition Therapy: Current Nutrition Therapy: {ROSENDO Diet List:02666} Routes of Feeding: {routes of feedin} Liquids: {liquid consistency:44681} Daily Fluid Restriction: {daily fluid restriction:80722} Last Modified Barium Swallow with Video (Video Swallowing Test): {done not done:57655} Treatments at the Time of Hospital Discharge: Respiratory Treatments: Oxygen Therapy: {Therapy; copd oxygen:57396} Ventilator: {ROSENDO Ventilator:82369} Rehab Therapies: {GEN THERAPY DISCIPLINE SCAL:6708118} Weight Bearing Status/Restrictions: {POD WEIGHT BEARIN} Other Medical Equipment (for information only, NOT a DME order): {Assistive Devices DME:93620} Other Treatments: Patient's personal belongings (please select all that are sent with patient): {ROSENDO Patient Belongings:41743} RN SIGNATURE: {E-signature:59327} CASE MANAGEMENT/SOCIAL WORK SECTION Inpatient Status Date: 02-10-25 Discharging to Facility/ Agency Name: [facility] Address:[address] [place] [address] Fax: Dialysis Facility (if applicable) Name: Address: Dialysis Schedule: Phone: Fax: Orthotic Fitter/Principal Trainer signature: ICIAN SECTION Name: Jun Snyder Prognosis: fair Condition at Discharge: stable Rehab Potential (if transferring to Rehab): fair Recommended Labs or Other Treatments After Discharge: none The individual is being admitted to a nursing facility directly from an [facility] or a unit of a [facility] that is not operated by or licensed by [facility] under section 5119.14 or 5160-3-15.1 [...] H&P PHYSICIAN SIGNATURE: documented in this encounter [facility] 03-14-2025 Nurse Note Patient Name: Jun Snyder Patient : 1965 Acct: [id number] Date of Admission: 03/13/2025 Room/Bed: [facility] A Code Status: Full [...] - Before each treatment: Dialysis Machine No.: [id number] Machine Number: [id number] Dialyzer Lot No.: [id number] Tubing Lot Number: [id number] All Connections Secure: Yes Venous Parameters Set: Yes Arterial Parameters Set: Yes NS Bag: Yes Saline Line Double Clamped: Yes Dialyzer: Nipro Prime Volume (mL): 200 mL RO Machine Number: [id number] RO Machine Log Sheet Completed: Yes Machine Alarm Self Test: Completed, Passed (03/14/25 1135) Air Foam Detector: Tested, Proper Function, pH Reading Extracorporeal Circuit Tested for Integrity: Yes Machine Conductivity: 13.7 Manual Conductivity: 13.6 Manual Ph: 7 Bleach Test (Neg): Yes Bath Temperature: 36 C (96.8 F) Conductivity Meter Serial #: [id number] Machine Functioning Alarm Free? Yes Dialysis Bath: [...] Other (Comment) (to inform patient arrival from [facility] and need for orders) Provider [...] Active Problem List Diagnosis Anemia Paroxysmal A-fib ([facility]/HCC) (HCC) HTN (hypertension) ESRD on hemodialysis ([facility]) ([facility]) IgA nephropathy determined by biopsy of kidney Diverticulosis Nonrheumatic aortic valve stenosis Calcification of abdominal aorta (HCC) Missed vaccination due to patient refusal Tobacco abuse Alcohol use disorder in remission Atrial flutter, unspecified type (HCC) RSV (acute bronchiolitis due to respiratory syncytial virus) Aortic stenosis Upper GI bleed S/P AVR Acute hypoxic respiratory failure ([facility]) Acute encephalopathy Pneumoperitoneum Gastric ulceration Severe malnutrition [...] susceptible Staphylococcus aureus (MSSA) (HCC) Sacral osteomyelitis ([facility]) (HCC) Acute respiratory failure with hypoxia ([facility]) [J96.01] Tracheostomy care ([facility]) [Z43.0] Pulmonary embolism (HCC) jail (current) use of antibiotics Complication of tracheostomy ([facility]) ([facility]) BRBPR (bright red blood per rectum) Hemoptysis SOB (shortness of breath) [3] [facility] 03-14-2025 Consult note Formatting of th is note is different from the original. [facility] [place] Nephrology Consult Note Consults HPI Jun is [...] 0 min Stress: Stress Concern Present (02/21/2025) [employer] [place] of Occupational [employer] - Occupational Stress Questionnaire Feeling of Stress : To some extent Social Connections: Unknown (02/21/2025) Social Connection and Isolation Panel [NHANES] Frequency of Communication with Friends and Family: More than three times a week Frequency of Social Gatherings with Friends and Family: Patient declined Attends Druze Services: Patient declined Active Member of Clubs [...] and sacral wound. Please message me through [employer] chat with any questions or concerns. Wellington Nicole MD 03/14/2025 10:43 AM [facility] [place] [address], [address] [place] [address] Office: [phone] [1] Past Medical History: Diagnosis Date Acute renal failure (ARF) ([facility]) 10/19/2019 Anemia 12/30/2021 Calcification of abdominal aorta ([facility]) 10/08/202309/[address] abd Diverticulosis 10/08/2023 ESRD on hemodialysis ([facility]) ([facility]) 10/26/2019 Hemodialysis patient ([facility]) ([facility]) HTN (hypertension) 12/01/2022 Hypertension IgA nephropathy IgA nephropathy determined by biopsy of kidney 10/26/2019 Missed vaccination due to patient refusal 10/08/2023 Has a number of non-scientific based beliefs which interfere with his understanding and acceptance of the medical benefit of vaccination. Nonrheumatic aortic valve stenosis 10/08/2023 Paroxysmal A-fib ([facility]) ([facility]) 08/18/2023 Tobacco abuse 10/08/2023 [2] Family History [...] mg, 4 mg, IntraVENous, q6h PRN, Rubi Sanno MD pantoprazole (ProtoNix) EC tablet 40 mg, 40 mg, Oral, BID AC, Rubi Sanon MD, 40 mg at 03/14/25 09 polyethylene glycol (PEG) 3350 (Miralax) packet 17 [...] ODT OR ondansetron, polyethylene glycol (PEG) 3350 T [facility] 03-14-2025 Note Formatting of this n ote might be different from the original. Care Management Progress Note Pt was sent to ER from dialysis due to shortness of breath. Needs PVR of BLE. Nephrology, Vascular and therapies are following. Wants to return to [facility]. Is a bed hold, but if they can skill him they would like to.. Length of Stay (Days): 1 GMLOS: No GMLOS Documented [facility] 03-14-2025 Note Formatting of this n ote might be different from the original. Care Management Progress Note Pt was sent to ER from dialysis due to shortness of breath. Needs PVR of BLE. Nephrology, Vascular and therapies are following. Wants to return to [facility]. Is a bed hold, but if they can skill him they would like to.. Length of Stay (Days): 1 GMLOS: No GMLOS Documented [facility] 03-14-2025 Consult note Associated Order (s): IP CONSULT TO CARDIOLOGY [facility] Heart & V[facility] [place] [facility] Cardiology /Electrophysiology Consult Note Reason for Consult/Chief Complaint: Volume overload, afib rvr Referring provider: Dr Kidd Established instrument lens inspector: Dr Shah History of Present Illness: Jun [...] to select rehab. He recently was at [facility] for Klebsiella pneumonia, hemoptysis and [...] of Cardiovascular Disease, Division of Heart Failure [facility] Heart and Vascular [place] 3:25 PM 03/14/25 [facility] Work Phone: 03-14-2025 Consult note Associated Order (s): INPATIENT CONSULT TO WOUND CARE PROVIDERS Images from the original note were not included. [facility] Wound VAC CONSULT Note Jun Snyder AGE: [...] apply Betadine and allow to dry, leave STRATEGIC PARTNER DEVELOPMENT MANAGER daily and PRN Nutritional support Wound Care to follow Recommend to follow up at [facility] wound care center after hospital discharge. [...] History: Diagnosis Date Acute renal failure (ARF) ([facility]) 10/19/2019 Anemia 12/30/2021 Calcification of abdominal aorta ([facility]) 10/08/202309/[address] abd Diverticulosis 10/08/2023 ESRD on hemodialysis ([facility]) ([facility]) 10/26/2019 Hemodialysis patient ([facility]) ([facility]) HTN (hypertension) 12/01/2022 Hypertension IgA nephropathy IgA nephropathy determined by biopsy of kidney 10/26/2019 Missed vaccination due to patient refusal 10/08/2023 Has a number of non-scientific based beliefs which interfere with his understanding and acceptance of the medical benefit of vaccination. Nonrheumatic aortic valve stenosis 10/08/2023 Paroxysmal A-fib ([facility]) ([facility]) 08/18/2023 Tobacco abuse 10/08/2023 [2] Past Surgical History: Procedure Laterality Date APPENDECTOMY CARDIAC CATHETERIZATION N/A 10/09/2024 Performed by Bob Watson MD at [facility] Cardiac Cath/EP Lab CARDIAC CATHETERIZATION Bilateral 11/01/2024 Performed by Bob Watson MD at [facility] Cardiac Cath/EP Lab CARDIAC CATHETERIZATION N/A 11/01/2024 Performed by Bob Watson MD at [facility] Cardiac Cath/EP Lab COLONOSCOPY N/A 01/24/2025 Performed by Chadd Davis MD at [facility] ENDOSCOPY FISTULAGRAM (HISTORICAL) Left 09/15/2021 LEFT UPPER [...] at 03/19/2025 4:44 PM EDT [facility] 03-14-2025 Note Formatting of this n ote might be different from the original. Referral placed to [facility] per [facility] request. Await review and response regarding ability to accept. TCC notified. [facility] 03-14-2025 Note Formatting of this n ote might be different from the original. Referral placed to [facility] per [facility] request. Await review and response regarding ability to accept. TCC notified. Electronically signed by [facility] Sabino Rodrigues [facility] 03-14-2025 Note Referral placed to [facility] [place] [facility] per [facility] request. Await review and response regarding ability to accept. TCC notified. Electronically signed by [facility] Plan of care note Problem: Knowledge Deficit Goal: Patient/family/caregiver demonstrates understanding of disease process, treatment plan, medications, and discharge instructions Outcome: Progressing Problem: Potential for Compromised Skin Integrity Goal: Skin Integrity is Maintained or Improved Outcome: Progressing [facility] 03-13-2025 Nurse Note Removed wound vac that patient arrived to 5w from ecf pictures of all wound taken on rover and saved to chart NSWto DSD applied to sacral wound [facility] 03-13-2025 History and physical note [facility] Attending History and Physical Admit Date: 03/13/2025 [...] Klebsiella pneumonia with lung abscess presented to [place] ED with worsening shortness of breath. He [...] in upper abdomen He was transferred from [facility] to [facility] due to bed availability Past Medical [...] 0 min Stress: Stress Concern Present (02/21/2025) [facility] [place] of Occupational Health - Occupational Stress Questionnaire Feeling of Stress : To some extent Social Connections: Unknown (02/21/2025) Social Connection and Isolation Panel [NHANES] Frequency of Communication with Friends and Family: More than three times a week Frequency of Social Gatherings with Friends and Family: Patient declined Attends Druze Services: Patient declined Active Member of Clubs [...] made to ensure accuracy; however, inadvertent computerized paid search marketing strategist errors may be present. Rubi Sanon MD,MD Division of Hospitalist Medicine [facility]) Please forward a copy of this H&P to the patient's PCP. Thank you. Electronically signed by Rubi aSnon MD at 5:11 PM [1] Past Medical History: Diagnosis Date Acute renal failure (ARF) ([facility]) 10/19/2019 Anemia 12/30/2021 Calcification of abdominal aorta ([facility]) 10/08/202309/[address] abd Diverticulosis 10/08/2023 ESRD on hemodialysis ([facility]) ([facility]) 10/26/2019 Hemodialysis patient ([facility]) ([facility]) HTN (hypertension) 12/01/2022 Hypertension IgA nephropathy IgA nephropathy determined by biopsy of kidney 10/26/2019 Missed vaccination due to patient refusal 10/08/2023 Has a number of non-scientific based beliefs which interfere with his understanding and acceptance of the medical benefit of vaccination. Nonrheumatic aortic valve stenosis 10/08/2023 Paroxysmal A-fib ([facility]) ([facility]) 08/18/2023 Tobacco abuse 10/08/2023 [2] Past Surgical History: Procedure Laterality Date APPENDECTOMY CARDIAC CATHETERIZATION N/A 10/09/2024 Performed by Bob Watson MD at [facility] Cardiac Cath/EP Lab CARDIAC CATHETERIZATION Bilateral 11/01/2024 Performed by Bob Watson MD at [facility] Cardiac Cath/EP Lab CARDIAC CATHETERIZATION N/A 11/01/2024 Performed by Bob Watson MD at [facility] Cardiac Cath/EP Lab COLONOSCOPY N/A 01/24/2025 Performed by Chadd Davis MD at [facility] ENDOSCOPY FISTULAGRAM (HISTORICAL) Left 09/15/2021 LEFT UPPER ARM HX AV FISTULA CREATION IR EMBOLIZATION 10/14/2024 IR EMBOLIZATION 10/14/2024 [facility] SPECIAL PROCEDURES IR FISTULAGRAM 08/07/2022 IR FISTULAGRAM 08/07/2022 [facility] IR IMAGING TONSILLECTOMY (HISTORICAL) [3] Family History Problem Relation Name Age of Onset No Known Problems Mother No Known Problems Father [4] No current facility-administered medications for this encounter. [5] Allergies Allergen Reactions Lisinopril Swelling and Angioedema [facility] 03-13-2025 Note [facility] 03-13-2025 [facility] History and Physical Admit Date: 03/13/2025 [...] Klebsiella pneumonia with lung abscess presented to [place] ED with worsening shortness of breath. He [...] in upper abdomen He was transferred from [place] ED to [facility] due to bed availability Past Medical [...] 0 min Stress: Stress Concern Present (02/21/2025) [facility] [place] of Occupational Health - Occupational Stress Questionnaire Feeling of Stress : To some extent Social Connections: Unknown (02/21/2025) Social Connection and Isolation Panel [NHANES] Frequency of Communication with Friends and Family: More than three times a week Frequency of Social Gatherings with Friends and Family: Patient declined Attends Druze Services: Patient declined Active Member of Clubs [...] made to ensure accuracy; however, inadvertent computerized paid search marketing strategist errors may be present. Rubi Sanon MD,MD Division of Hospitalist Medicine [facility] Please forward a copy of this H&P to the patient's PCP. Thank you. Electronically signed by Rubi Sanon MD at 5:11 PM [1] Past Medical History: Diagnosis Date Acute renal failure (ARF) ([facility]) 10/19/2019 Anemia 12/30/2021 Calcification of abdominal aorta ([facility]) 10/08/202309/[address] abd Diverticulosis 10/08/2023 ESRD on hemodialysis ([facility]) ([facility]) 10/26/2019 Hemodialysis patient ([facility]) ([facility]) HTN (hypertension) 12/01/2022 Hypertension IgA nephropathy IgA [...] 10/09/2024 Performed by Bob Watson MD at [facility] Cardiac Cath/EP Lab CARDIAC CATHETERIZATION Bilateral 11/01/2024 Performed by Bob Watson MD at [facility] Cardiac Cath/EP Lab CARDIAC CATHETERIZATION N/A 11/01/2024 Performed by Bob Watson MD at [facility] Cardiac Cath/EP Lab COLONOSCOPY N/A 01/24/2025 Performed by Chadd Davis MD at [facility] ENDOSCOPY FISTULAGRAM (HISTORICAL) Left 09/15/2021 LEFT UPPER ARM HX AV FISTULA CREATION IR EMBOLIZATION 10/14/2024 IR EMBOLIZATION 10/14/2024 [facility] SPECIAL PROCEDURES IR FISTULAGRAM 08/07/2022 IR FISTULAGRAM 08/07/2022 [facility] IR IMAGING TONSILLECTOMY (HISTORICAL) [3] Family History Problem Relation Name Age of Onset No Known Problems Mother No Known Problems Father [4] No current facility-administered medications for this encounter. [5] Allergies Allergen Reactions Lisinopril Swelling and Angioedema documented in this encounter [facility] 03-13-2025 Emergency department Note When this RN came back from lunch Pt was already taken to [facility] by Consuelo Day. RN covering my lunch called report to RN at [facility]. [facility] 03-13-2025 Emergency department Note When this RN came back from lunch Pt was already taken to [facility] by Consuelo Day. RN covering my lunch called report to RN at [facility]. Called report to SWEETIE Linder at 5W. Consuelo Johnson at bedside to transport patient to [facility]. Emergency Department Encounter Pt Name: Jun Snyder Birthdate 1965 Date of evaluation: 03/13/2025 Provider: Keiry Solares MD CHIEF COMPLAINT Chief Complaint Patient presents with Shortness of Breath Pt arrived from long-term via EMS. Pt was starting dialysis and [...] alert. Psychiatric: Mood and Affect: Mood normal. Harper Coma Scale Best Eye Response: Spontaneous Best Verbal Response: Oriented Best Motor Response: Follows commands Harper Coma Scale Score: 15 EMERGENCY DEPARTMENT COURSE [...] Hoffman, due to no available beds at [place] and available beds at [facility] patient wishes to be transferred. I discussed the case with Dr. Sanon at [facility] who accepts patient for transfer. Chronic conditions and social determinants of health affecting care: atrial fibrillation, ESRD DISPOSITION/PLAN Admit 03/13/2025 02:55:43 PM Keiry Solares MD Emergency Medicine [1] Past Medical History: Diagnosis Date Acute renal failure (ARF) ([facility]) 10/19/2019 Anemia 12/30/2021 Calcification of abdominal aorta ([facility]) 10/08/202309/[address] abd Diverticulosis 10/08/2023 ESRD on hemodialysis ([facility]) ([facility]) 10/26/2019 Hemodialysis patient ([facility]) ([facility]) HTN (hypertension) 12/01/2022 Hypertension IgA nephropathy IgA nephropathy determined by biopsy of kidney 10/26/2019 Missed vaccination due to patient refusal 10/08/2023 Has a number of non-scientific based beliefs which interfere with his understanding and acceptance of the medical benefit of vaccination. Nonrheumatic aortic valve stenosis 10/08/2023 Paroxysmal A-fib ([facility]) ([facility]) 08/18/2023 Tobacco abuse 10/08/2023 Keiry Solares MD 03/13/256 documented in this encounter [facility] 03-13-2025 Emergency department Note Called report to SWEETIE Linder at 5W. [facility] 03-13-2025 Emergency department Note Consuelo Johnson at bedside to transport patient to [facility]. [facility] 03-13-2025 Physician Emergen cy department Note Emergency Department Encounter Pt Name: Jun Snyder Birthdate 1965 Date of evaluation: 03/13/2025 Provider: Keiry Solares MD CHIEF COMPLAINT Chief Complaint Patient presents with Shortness of Breath Pt arrived from long-term via EMS. Pt was starting dialysis and [...] alert. Psychiatric: Mood and Affect: Mood normal. Harper Coma Scale Best Eye Response: Spontaneous Best [...] ED course: ED Course as of 03/13/252112 e Mar 13, 2025 0846 I interpreted the [...] Hoffman, due to no available beds at [place] and available beds at [facility] patient wishes to be transferred. I discussed the case with Dr. Sanon at [facility] who accepts patient for transfer. Chronic conditions and social determinants of health affecting care: atrial fibrillation, ESRD DISPOSITION/PLAN Admit 03/13/2025 02:55:43 PM Keiry Solares MD Emergency Medicine [1] Past Medical History: Diagnosis Date Acute renal failure (ARF) ([facility]) 10/19/2019 Anemia 12/30/2021 Calcification of abdominal aorta ([facility]) 10/08/202309/[address] abd Diverticulosis 10/08/2023 ESRD on hemodialysis ([facility]) ([facility]) 10/26/2019 Hemodialysis patient ([facility]) ([facility]) HTN (hypertension) 12/01/2022 Hypertension IgA nephropathy IgA nephropathy determined by biopsy of kidney 10/26/2019 Missed vaccination due to patient refusal 10/08/2023 Has a number of non-scientific based beliefs which interfere with his understanding and acceptance of the medical benefit of vaccination. Nonrheumatic aortic valve stenosis 10/08/2023 Paroxysmal A-fib (CMS/HCC) (HCC) 08/18/2023 Tobacco abuse 10/08/2023 Keiry Solares MD 03/13/252115 [facility] 03-08-2025 History of Presen t illness Narrative Pt was followed by the Palliative Care Team during hospitalization at [facility]. Provider is recommending continued Palliative follow up in the community. Referral made too [facility] Palliative Care Team, faxed info to [phone] documented in this encounter [facility] 03-08-2025 Telephone encount er Note 2nd attempt called and spoke to the Alyssa the Nurse for the patient at the facility he lives at. She states Sabino is the person who schedules the appointments and she is on vacation and wont be back till next Wednesday. I will try again next wednesday [facility] 03-08-2025 Miscellaneous Notes Formattin g [...] this? Thank you documented in this encounter [facility] 03-05-2025 History of Presen t illness Narrative Images from the original note were not included. PHYSICAL THERAPY [facility] Treatment Note Name/MRN: Jair Snyder ([id number]) Date of : 1965 Age: 59 y.o. Room/Bed: [facility]/3334 A Discharge Recommendation: Detention Facility Equipment Needed: (tbd) Assessment Increased time for all activity completion. SpO2 97% without oxygen. General weakness, SOB. Rec skilled PT Subjective Agree to PT. Reluctant, not feeling well Pain: buttocks, request pain meds. Nurse notified Medical Precautions: No active isolations Proper PPE donned/doffed in accordance with facility standards. Fall Risk: Roque Fall Risk Score: 100 (Low Risk) Orque Fall Risk Score: 100 (High Risk) Precautions/Restrictions: [...] Raw Score (No Stairs) : 19 [facility] Score: Walked 25 ft or more (i.e. [...] any questions or concerns Bree Molina APRN WELLNESS NURSE RN A-G SAMPLE SHOE INSPECTOR AND REWORKER [facility] [place] [phone] I reviewed with DENIA-SAMIA the medical history and the findings on physical examination. I discussed the patient s diagnosis and concur with the treatment plan as documented in his note. Please call [phone] or message me through Hybrent with any questions or concerns. [facility] Anticoagulation Management Service ([facility]) Inpatient Warfarin Consult HPI: Jun Snyder is a 59 y.o. male admitted on 02/20/2025 for Hemoptysis [R04.2]. Medical History[1] Patient is on warfarin for mechanical AVR and has a goal INR 2.0 - 3.0. Patient was referred to [facility], but so far has been managed at facilities, most recently [facility]. Pt's home dose of warfarin is [...] RPh [facility] Consult Service is available daily [phone] via [employer]brent Secure Chat. [1] Past Medical History: Diagnosis Date Acute renal failure (ARF) ([facility]) 10/19/2019 Anemia 12/30/2021 Calcification of abdominal aorta ([facility]) 10/08/202309/[address] abd Diverticulosis 10/08/2023 ESRD on hemodialysis ([facility]) ([facility]) 10/26/2019 Hemodialysis patient ([facility]) ([facility]) HTN (hypertension) 12/01/2022 Hypertension IgA nephropathy IgA nephropathy determined by biopsy of kidney 10/26/2019 Missed vaccination due to patient refusal 10/08/2023 Has a number of non-scientific based beliefs which interfere with his understanding and acceptance of the medical benefit of vaccination. Nonrheumatic aortic valve stenosis 10/08/2023 Paroxysmal A-fib ([facility]) ([facility]) 08/18/2023 Tobacco abuse 10/08/2023 Hospitalist Progress Note - [facility] [employer] ([facility]) 03/05/2025 7:13 AM [phone]: Please page me for patient care issues. [phone]: Please page [facility] Hospitalist - [facility] for any issues. Subjective and Objective: Admit [...] was bright red and it stopped just 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 Adult diet Regular Dietary [...] - (0 mL/kg) Weight: 60.8 kg @IODETAILS@ @[id number]@ Medications: Continuous Meds[1] Scheduled Meds[2] Recent Labs [...] "CHOL" No results found for: "PHART", "PO2ART", "FLP5PUM" Recent Labs 03/04/25 0156 03/04/25 0946 03/05/25 [...] stable for discharge - Location - [facility] ([facility]) - Pending the following - dispo, Oxy [...] DO Division of Hospitalist Medicine Inpatient Medical Services/[facility] [1] heparin, 5-30 Units/kg/hr, Last Rate: 21 [...] original note were not included. PHYSICAL THERAPY [facility] Name/MRN: Jair Snyder ([id number]) Date: 03/04/2025 Attempted to initiate PT this date; upon arrival, patient states he is needs to have a bowel movement and does not want to do PT. Offered to ambulate patient to bathroom or use of a bedpan however patient declines. Will continue to follow. Emily Stanley INDUSTRIAL RELATIONS REPRESENTATIVE Cosigned by Darryn Tay, PT at 03/04/2025 3:38 PM EDT Hospitalist Progress Note - [facility] - [employer] ([facility]) 03/04/2025 9:11 AM [phone]: Please page me for patient care issues. [phone]: Please page [facility] Hospitalist - [facility] for any issues. Subjective and Objective: Admit [...] was bright red and it stopped just 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 Adult diet Regular Dietary [...] - (0 mL/kg) Weight: 60.8 kg @IODETAILS@ @[id number]@ Medications: Continuous Meds[1] Scheduled Meds[2] Recent Labs [...] "CHOL" No results found for: "PHART", "PO2ART", "[id number]" Recent Labs 03/02/25 0004 03/03/252 03/04/25 0156 INR 1.4* 1.6* 1.5* No [...] - 03/04 - 05/05 - Location - [facility] - Pending the following - [...] DO Division of Hospitalist Medicine Inpatient Medical Services/[facility] [1] heparin, 5-30 Units/kg/hr, Last Rate: 20 Units/kg/hr (03/04/25 07) [2] B complex-vitamin C-folic acid, 1 capsule, [...] electrolyte and CBC daily Maryam Marcelo DO [facility] Anticoagulation Management Service ([facility]) Inpatient Warfarin Consult HPI: Jun Snyder is a 59 y.o. male admitted on 02/20/2025 for Hemoptysis [R04.2]. Medical History[1] Patient is on warfarin for mechanical AVR and has a goal INR 2.0 - 3.0. Patient was referred to [facility], but so far has been managed at facilities, most recently [facility]. Pt's home dose of warfarin is [...] 6/7 1.6 6 mg 03/02 1.4 5mg 6/ 1.4 4mg / 1.3 3mg 02/27 1.3 2mg / 1.3 1.5mg 6/ 1.3 1 mg 02/24 [...] PharmD [facility] Consult Service is available daily [phone] via [employer] Secure flo.do. [1] Past Medical History: Diagnosis Date Acute renal failure (ARF) (HCC) 10/19/2019 Anemia 12/30/2021 Calcification of abdominal aorta (HCC) 10/08/202309/[address] abd Diverticulosis 10/08/2023 ESRD on hemodialysis ([facility]) ([facility]) 10/26/2019 Hemodialysis patient ([facility]) ([facility]) HTN (hypertension) 12/01/2022 Hypertension IgA nephropathy IgA nephropathy determined by biopsy of kidney 10/26/2019 Missed vaccination due to patient refusal 10/08/2023 Has a number of non-scientific based beliefs which interfere with his understanding and acceptance of the medical benefit of vaccination. Nonrheumatic aortic valve stenosis 10/08/2023 Paroxysmal A-fib ([facility]) ([facility]) 08/18/2023 Tobacco abuse 10/08/2023 Hospitalist Progress Note - [facility] [employer] ([facility]) 03/03/2025 8:37 AM [phone]: Please page me for patient care issues. [phone]: Please page [facility] Hospital[facility] - [facility] for any issues. Subjective and Objective: Admit [...] was bright red and it stopped just 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 Adult diet Regular Dietary [...] (0.4 mL/kg) [Drains:25] Weight: 60.8 kg @IODETAILS@ @[id number]@ Medications: Continuous Meds[1] Scheduled Meds[2] Recent Labs [...] "CHOL" No results found for: "PHART", "PO2ART", "[id number]" Recent Labs 03/01/25 0003 03/02/25 0004 03/03/25211 [...] - Date - 03/04 - Location - [facility] ([facility]) - Pending the following - [...] Contact Information Primary Emergency Contact: Omar Snyder Relation: Child Secondary Emergency Contact: Toma Mcneil Mobile Relation: Partner Anthony Hurtado DO Division of Hospitalist Medicine Inpatient Medical Services/[facility] [1] heparin, 5-30 Units/kg/hr, Last Rate: 20 [...] any questions or concerns Bree Molina APRN WELLNESS NURSE RN A-G SAMPLE SHOE INSPECTOR AND REWORKER [facility] [place] [phone] Pt seen and examined independently by me. I reviewed with DENIA-WELLNESS NURSE RN the medical history and the findings on physical examination. I discussed the patient s diagnosis and concur with the treatment plan as documented in his note. Please call [phone] or message me through Hybrent with any questions or concerns. Hospitalist Progress Note - [facility] - [employer] ([facility]) 03/02/2025 8:20 AM [phone]: Please page me for patient care issues. [phone]: Please page [facility] - [facility] for any issues. Subjective and Objective: Admit [...] was bright red and it stopped just 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 Adult diet Regular Dietary [...] (0.7 mL/kg) [Drains:40] Weight: 60.8 kg @IODETAILS@ @[id number]@ Medications: Continuous Meds[1] Scheduled Meds[2] Recent Labs [...] "CHOL" No results found for: "PHART", "PO2ART", "[id number]" Recent Labs 02/28/25 0004 03/01/25 0003 03/02/25 [...] Date - 03/03 - Location - SNF ([facility]) - Pending the following - INR [...] DO Division of Hospitalist Medicine Inpatient Medical Services/[facility] [1] heparin, 5-30 Units/kg/hr, Last Rate: 19 Units/kg/hr (03/02/25 0813) [2] B complex-vitamin C-folic acid, 1 capsule, Oral, Daily metoprolol tartrate, 25 mg, Oral, BID pantoprazole, 40 mg, Oral, BID AC piperacillin-tazobactam, 2,250 mg, IntraVENous, q6h QUEtiapine, 25 mg, Oral, Nightly sevelamer carbonate, 800 mg, Oral, TID WC warfarin, 5 mg, Oral, Once [facility] ([facility]) Inpatient Warfarin Consult HPI: Jun Snyder is a 59 y.o. male admitted on 02/20/2025 for Hemoptysis [R04.2]. Medical History[1] Patient is on warfarin for mechanical AVR and has a goal INR 2.0 - 3.0. Patient was referred to [facility], but so far has been managed at facilities, most recently [facility]. Pt's home dose of warfarin is [...] RPh [facility] Consult Service is available daily [phone] via Hybrent Secure Chat. [1] Past Medical History: Diagnosis Date Acute renal failure (ARF) ([facility]) 10/19/2019 Anemia 12/30/2021 Calcification of abdominal aorta ([facility]) 10/08/202309/[address] abd Diverticulosis 10/08/2023 ESRD on hemodialysis ([facility]) ([facility]) 10/26/2019 Hemodialysis patient ([facility]) ([facility]) HTN (hypertension) 12/01/2022 Hypertension IgA nephropathy IgA nephropathy determined by biopsy of kidney 10/26/2019 Missed vaccination due to patient refusal 10/08/2023 Has a number of non-scientific based beliefs which interfere with his understanding and acceptance of the medical benefit of vaccination. Nonrheumatic aortic valve stenosis 10/08/2023 Paroxysmal A-fib ([facility]) ([facility]) 08/18/2023 Tobacco abuse 10/08/2023 Images from the original note were not included. PHYSICAL THERAPY [facility] Treatment Note Name/MRN: Jair Snyder ([id number]) Date of : 1965 Age: 59 y.o. Room[facility]Bed: [facility] A Discharge Recommendation: Detention Facility [...] not have opportunity today to speak to INDUSTRIAL RELATIONS REPRESENTATIVE re: recommendation. Mobility appears to be consistent with homegoing, but know that medical conditions and other factors clearly could influence recommendations. Images from the original note were not included. OCCUPATIONAL THERAPY [facility] Treatment Note Name/MRN: Jair Snyder ([id number]) Date of : 1965 Age: 59 y.o. [...] any questions or concerns Bree Molina APRN WELLNESS NURSE RN A-G SAMPLE SHOE INSPECTOR AND REWORKER [facility] [place] [phone] Pt seen and examined independently by me. I reviewed with Jun Maki, the medical history and the findings on physical examination. I discussed the patient s diagnosis and concur with the treatment plan as documented in his note. Please call [phone] or message me through Hybrent with any questions or concerns. Hospitalist Progress Note - [facility] - [employer] ([facility]) 03/01/2025 9:51 AM [phone]: Please page me for patient care issues. [phone]: Please page [facility] - [facility] for any issues. Subjective and Objective: Admit [...] was bright red and it stopped just 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 Adult diet Regular Dietary Orders (From admission, onward) Start Ordered 02/27/25 1254 Supplement:Breakfast, Dinner; Nepro w/CARB Steady Until discontinued Question Answer Comment Frequency Breakfast Frequency Dinner Select supplement: Nepro w/CARB Steady 02/27/25 1254 02/21/25 1021 Adult diet Regular Diet effective now Question: Diet type Answer: Regular 02/21/25 1021 No intake/output data recorded. @IODETAILS@ @[id number]@ Medications: Continuous Meds[1] Scheduled Meds[2] Recent Labs [...] "CHOL" No results found for: "PHART", "PO2ART", "RME0WSA" Recent Labs 02/27/25 0010 02/28/25 0004 03/01/25 [...] - 03/01 - 03/02 - Location - [facility] ([facility]) - Pending the following - INR [...] DO Division of Hospitalist Medicine Inpatient Medical Services/[facility] [1] heparin, 5-30 Units/kg/hr, Last Rate: 18 Units/kg/hr (03/01/25 0729) [2] B complex-vitamin C-folic acid, 1 capsule, Oral, Daily metoprolol tartrate, 25 mg, Oral, BID pantoprazole, 40 mg, Oral, BID AC piperacillin-tazobactam, 2,250 mg, IntraVENous, q6h QUEtiapine, 25 mg, Oral, Nightly sevelamer carbonate, 800 mg, Oral, TID WC warfarin, 4 mg, Oral, Once Images from the original note were not included. PHYSICAL THERAPY [facility] Name/MRN: Jair Snyder ([id number]) Date: 03/01/2025 Leaving for dialysis. Return later time/date for PT. Merlene León, INDUSTRIAL RELATIONS REPRESENTATIVE Cosigned by Anthony Black PT at 03/01/2025 8:42 AM EDT [facility] ([facility]) Inpatient Warfarin Consult HPI: Jun Snyder is a 59 y.o. male admitted on 02/20/2025 for Hemoptysis [R04.2]. Medical History[1] Patient is on warfarin for mechanical AVR and has a goal INR 2.0 - 3.0. Patient was referred to [facility], but so far has been managed at facilities, most recently [facility]. Pt's home dose of warfarin is [...] RPh [facility] Consult Service is available daily [phone] via Hybrent Secure Chat. [1] Past Medical History: Diagnosis Date Acute renal failure (ARF) ([facility]) 10/19/2019 Anemia 12/30/2021 Calcification of abdominal aorta ([facility]) 10/08/202309/[address] abd Diverticulosis 10/08/2023 ESRD on hemodialysis ([facility]) ([facility]) 10/26/2019 Hemodialysis patient ([facility]) ([facility]) HTN (hypertension) 12/01/2022 Hypertension IgA nephropathy IgA nephropathy determined by biopsy of kidney 10/26/2019 Missed vaccination due to patient refusal 10/08/2023 Has a number of non-scientific based beliefs which interfere with his understanding and acceptance of the medical benefit of vaccination. Nonrheumatic aortic valve stenosis 10/08/2023 Paroxysmal A-fib ([facility]) ([facility]) 08/18/2023 Tobacco abuse 10/08/2023 Nephrology Progress Note [...] any questions or concerns Bree Molina APRN WELLNESS NURSE RN A-G SAMPLE SHOE INSPECTOR AND REWORKER [facility] [place] [phone] Pt seen and examined independently by me. I reviewed with APPLICATIONS MANAGER-WELLNESS NURSE RN the medical history and the findings on physical examination. I discussed the patient s diagnosis and concur with the treatment plan as documented in his note. Please call [phone] or message me through Hybrent with any questions or concerns. Hospitalist Progress Note - [facility] - [employer] ([facility]) 02/28/2025 8:23 AM [phone]: Please page me for patient care issues. [phone]: Please page [facility] - [facility] for any issues. Subjective and Objective: Admit [...] was bright red and it stopped just 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 Adult diet Regular Dietary [...] [Urine:450 (0.2 mL/kg/hr)] Weight: 60.8 kg @IODETAILS@ @[id number]@ Medications: Continuous Meds[1] Scheduled Meds[2] Recent Labs [...] "CHOL" No results found for: "PHART", "PO2ART", "[id number]" Recent Labs 02/25/25 2345 02/27/25 0010 02/28/25 [...] 03/01 - 03/02 - Location - SNF ([facility]) - Pending the following - [...] DO Division of Hospitalist Medicine Inpatient Medical Services/[facility] [1] heparin, 5-30 Units/kg/hr, Last Rate: 18 Units/kg/hr (02/28/25 0714) [2] B complex-vitamin C-folic acid, 1 capsule, Oral, Daily metoprolol tartrate, 25 mg, Oral, BID pantoprazole, 40 mg, Oral, qAM AC piperacillin-tazobactam, 4,500 mg, IntraVENous, q8h QUEtiapine, 25 mg, Oral, Nightly sevelamer carbonate, 800 mg, Oral, TID WC warfarin, 3 mg, Oral, Once Images from the original note were not included. [facility] Wound Care/[facility] Progress Note Jun Snyder AGE: [...] for pain with pain medication, per staff development coordinator rn, prior to wound VAC dressing change. Wet [...] apply Betadine and allow to dry, leave STRATEGIC PARTNER DEVELOPMENT MANAGER daily and PRN Left plantar heel - unstageable pressure injury (POA): -cleanse with NS, apply Betadine and allow to dry, leave STRATEGIC PARTNER DEVELOPMENT MANAGER daily and PRN Right wrist Abrasion: -cleanse with antibacterial soap/water, leave STRATEGIC PARTNER DEVELOPMENT MANAGER daily Sacral Stage 4 pressure injury (POA): [...] to follow Recommend to follow up at [facility] care center after hospital [...] History: Diagnosis Date Acute renal failure (ARF) ([facility]) 10/19/2019 Anemia 12/30/2021 Calcification of abdominal aorta ([facility]) 10/08/202309/[address] abd Diverticulosis 10/08/2023 ESRD on hemodialysis ([facility]) ([facility]) 10/26/2019 Hemodialysis patient ([facility]) ([facility]) HTN (hypertension) 12/01/2022 Hypertension IgA nephropathy IgA [...] 10/09/2024 Performed by Bob Watson MD at [facility] Cardiac Cath/EP Lab CARDIAC CATHETERIZATION Bilateral 11/01/2024 Performed by Bob Watson MD at [facility] Cardiac Cath/EP Lab CARDIAC CATHETERIZATION N/A 11/01/2024 Performed by Bob Watson MD at [facility] Cardiac Cath/EP Lab COLONOSCOPY N/A 01/24/2025 Performed by Chadd Davis MD at [facility] ENDOSCOPY FISTULAGRAM (HISTORICAL) Left 09/15/2021 LEFT UPPER ARM HX AV FISTULA CREATION IR EMBOLIZATION 10/14/2024 IR EMBOLIZATION 10/14/2024 [facility] SPECIAL PROCEDURES IR FISTULAGRAM 08/07/2022 IR FISTULAGRAM [...] Gill DO at 03/01/2025 2:50 PM EDT [facility] ([facility]) Inpatient Warfarin Consult HPI: Jun Snyder is a 59 y.o. male admitted on 02/20/2025 for Hemoptysis [R04.2]. Medical History[1] Patient is on warfarin for mechanical AVR and has a goal INR 2.0 - 3.0. Patient was referred to [facility], but so far has been managed at facilities, most recently [facility]. Pt's home dose of warfarin is [...] Will adjust dose accordingly. 3. Will facilitate [facility] follow-up upon discharge. Likely will return to facility initially where they will manage warfarin, and [facility] will take over when discharged from facility. [facility] Service is available daily [phone] via Hybrent Secure Chat. [1] Past Medical History: Diagnosis Date Acute renal failure (ARF) ([facility]) 10/19/2019 Anemia 12/30/2021 Calcification of abdominal aorta ([facility]) 10/08/202309/[address] abd Diverticulosis 10/08/2023 ESRD on hemodialysis ([facility]) (HCC) 10/26/2019 Hemodialysis patient ([facility]) ([facility]) HTN (hypertension) 12/01/2022 Hypertension IgA nephropathy IgA nephropathy determined by biopsy of kidney 10/26/2019 Missed vaccination due to patient refusal 10/08/2023 Has a number of non-scientific based beliefs which interfere with his understanding and acceptance of the medical benefit of vaccination. Nonrheumatic aortic valve stenosis 10/08/2023 Paroxysmal A-fib ([facility]) ([facility]) 08/18/2023 Tobacco abuse 10/08/2023 Nephrology Progress Note [...] original note were not included. [facility] - Infectious Diseases [...] Total Energy Requirements (kcals/day): 30-35 kcal/kg = 6484-2102 kcal Weight Used for Protein Requirements: Current [...] lb) (08/28/24) % Weight Change (Calculated): -34.6 [place] Body Weight (lbs) (Calculated): 166 lbs [place] Body Weight (Kg) (Calculated): 75 kg % [place] Body Weight (Calculated): 81.1 % BMI (kg/m2) [...] to determine Glenys Juares RD, LD Contact: [phone] Images from the original note were not included. PHYSICAL THERAPY [facility] Name/MRN: Jair Snyder ([id number]) Date: 02/27/2025 Request for "see today" note, [...] Anthony Black PT Hospitalist Progress Note - [facility] - Acute Care [facility] ([facility]) 02/27/2025 9:03 AM [phone]: Please page me for patient care issues. [phone]: Please page [facility] Hospitalist - [facility] for any issues. Subjective and Objective: Admit [...] was bright red and it stopped just 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 Adult diet Regular Dietary Orders (From admission, onward) Start Ordered 02/21/25 1021 Adult diet Regular Diet effective now Question: Diet type Answer: Regular 02/21/25 1021 I/O last 3 completed shifts: In: 750 (12.3 mL/kg) [P.O.:750] Out: 450 (7.4 mL/kg) [Urine:450 (0.2 mL/kg/hr)] Weight: 60.8 kg @IODETAILS@ @[id number]@ Medications: Continuous Meds[1] Scheduled Meds[2] Recent Labs [...] "CHOL" No results found for: "PHART", "PO2ART", "PNP4XDD" Recent Labs 02/25/25 0028 02/25/25 2345 02/27/25 [...] DO Division of Hospitalist Medicine Inpatient Medical Services/[facility] [1] heparin, 5-30 Units/kg/hr, Last Rate: 18 Units/kg/hr (02/27/25 0722) [2] B complex-vitamin C-folic acid, 1 capsule, Oral, Daily metoprolol tartrate, 25 mg, Oral, BID pantoprazole, 40 mg, Oral, qAM AC piperacillin-tazobactam, 4,500 mg, IntraVENous, q8h QUEtiapine, 25 mg, Oral, Nightly sevelamer carbonate, 800 mg, Oral, TID WC warfarin, 2 mg, Oral, Once [facility] ([facility]) Inpatient Warfarin Consult HPI: Jun Snyder is a 59 y.o. male admitted on 02/20/2025 for Hemoptysis [R04.2]. Medical History[1] Patient is on warfarin for mechanical AVR and has a goal INR 2.0 - 3.0. Patient was referred to [facility], but so far has been managed at facilities, most recently [facility]. Pt's home dose of warfarin is [...] 02/27/25 0010 INR 1.3* Date INR Dose 6/3 1.3 2mg 02/26 1.3 1.5mg 02/25 1.3 [...] initially where they will manage warfarin, and [facility] will take over when discharged from facility. Fatuma Odonnell RPh [facility] Consult Service is available daily [phone] via Hybrent Secure Chat. [1] Past Medical History: Diagnosis Date Acute renal failure (ARF) ([facility]) 10/19/2019 Anemia 12/30/2021 Calcification of abdominal aorta ([facility]) 10/08/202309/[address] abd Diverticulosis 10/08/2023 ESRD on hemodialysis ([facility]) ([facility]) 10/26/2019 Hemodialysis patient ([facility]) ([facility]) HTN (hypertension) 12/01/2022 Hypertension IgA nephropathy IgA nephropathy determined by biopsy of kidney 10/26/2019 Missed vaccination due to patient refusal 10/08/2023 Has a number of non-scientific based beliefs which interfere with his understanding and acceptance of the medical benefit of vaccination. Nonrheumatic aortic valve stenosis 10/08/2023 Paroxysmal A-fib ([facility]) ([facility]) 08/18/2023 Tobacco abuse 10/08/2023 Images from the original note were not included. OCCUPATIONAL THERAPY [facility] Initial Evaluation Name/MRN: Jair Snyder ([id number]) Evaluation Date: 02/26/2025 Date of : 1965 Admission Date: 02/20/2025 5:41 PM Age: 59 y.o. Room/Bed: W3-334/W3-334 A Discharge Recommendation: Detention Facility Assessment IMPRESSION: [...] Problem List Diagnosis Date Noted Severe malnutrition ([facility]) ([facility]) 02/21/2025 Hemoptysis 02/20/2025 Complication of tracheostomy ([facility]) ([facility]) 01/19/2025 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 01/12/2025 Acute respiratory failure with hypoxia ([facility]) [J96.01] 01/08/2025 Tracheostomy care ([facility]) [Z43.0] 01/08/2025 Pulmonary embolism ([facility]) 01/08/2025 Sacral osteomyelitis ([facility]) ([facility]) 01/03/2025 Pneumonia of both lungs due to methicillin susceptible Staphylococcus aureus (MSSA) ([facility]) 01/01/2025 Leukocytosis 12/30/2024 Decubitus ulcer of sacral region, unstageable ([facility]) 12/30/2024 Peritonitis due to fungus ([facility]) 11/30/2024 History of abdominal surgery 11/30/2024 Leg DVT (deep venous thromboembolism), acute, left ([facility]) 11/30/2024 Ischemic ulcer of toe of left foot, limited to breakdown of skin ([facility]) 11/30/2024 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[facility]) 11/30/2024 Pleural effusion 11/28/2024 Gastric ulceration 2024 Atrial flutter, unspecified type ([facility]) 10/03/2024 RSV (acute bronchiolitis due to respiratory syncytial virus) 10/03/2024 Diverticulosis 10/08/2023 Nonrheumatic aortic valve stenosis 10/08/2023 Calcification of abdominal aorta ([facility]) 10/08/2023 Missed vaccination due to patient refusal 10/08/2023 Tobacco abuse 10/08/2023 Alcohol use disorder in remission 10/08/2023 Paroxysmal A-fib ([facility]) ([facility]) 08/18/2023 HTN (hypertension) 12/01/2022 ESRD on hemodialysis ([facility]) ([facility]) 10/26/2019 IgA nephropathy determined by biopsy of kidney 10/26/2019 BRBPR (bright red blood per rectum) 01/19/2025 Aortic stenosis 10/03/2024 Upper GI bleed 10/03/2024 S/P AVR 10/03/2024 Acute hypoxic respiratory failure ([facility]) 10/03/2024 Acute encephalopathy 10/03/2024 Pneumoperitoneum 10/03/2024 Anemia [...] Daily Activity Raw Score: 13 ADL Inpatient [facility] G-Code Modifier: CL Plan Pt would [...] of Care supervision is transferred to a [facility] Occupational Therapist. Goals and/or treatment plan was established in collaboration with patient/family/other representatives. Ro Sales MS, OTR/L [1] Past Medical History: Diagnosis Date Acute renal failure (ARF) ([facility]) 10/19/2019 Anemia 12/30/2021 Calcification of abdominal aorta ([facility]) 10/08/202309/[address] abd Diverticulosis 10/08/2023 ESRD on hemodialysis ([facility]) ([facility]) 10/26/2019 Hemodialysis patient ([facility]) ([facility]) HTN (hypertension) 12/01/2022 Hypertension IgA nephropathy IgA [...] 10/09/2024 Performed by Bob Watson MD at [facility] Cardiac Cath/EP Lab CARDIAC CATHETERIZATION Bilateral 11/01/2024 Performed by Bob Watson MD at [facility] Cardiac Cath/EP Lab CARDIAC CATHETERIZATION N/A 11/01/2024 Performed by Bob Watson MD at [facility] Cardiac Cath/EP Lab COLONOSCOPY N/A 01/24/2025 Performed by Chadd Davis MD at [facility] ENDOSCOPY FISTULAGRAM (HISTORICAL) Left 09/15/2021 LEFT UPPER ARM HX AV FISTULA CREATION IR EMBOLIZATION 10/14/2024 IR EMBOLIZATION 10/14/2024 [facility] SPECIAL PROCEDURES IR FISTULAGRAM 08/07/2022 IR FISTULAGRAM 08/07/2022 [facility] IR IMAGING TONSILLECTOMY (HISTORICAL) Hospitalist Progress Note [...] bilateral pleural effusions. 5. Cholelithiasis, and diminutive [place] kidneys. Seen by pulm service Started on [...] controlled No CP Adult diet Regular @IODETAILS@ @[id number]@ Medications: Continuous Meds[1] Scheduled Meds[2] Recent Labs [...] coumadin -- [facility] to manage-- bridge for [facility] valve Following Hgb PT/OT Will ask surg about PEG remove per request-- out Anticipated Discharge - Date - 02/27 - Location - Skilled Facility - Pending the following - course Total time spent (which include face to face and non face to face encounters) : 46 minutes See orders, continue POC Advance Directive: Full Code Ramón Romano MD, [facility] Hospitalist [1] heparin, 5-30 Units/kg/hr, Last Rate: 18 Units/kg/hr (02/26/25 4436) [2] B complex-vitamin C-folic acid, 1 capsule, [...] any questions or concerns Bree Molina APRN WELLNESS NURSE RN A-G SAMPLE SHOE INSPECTOR AND REWORKER [facility] [place] [phone] Pt seen and examined independently by me. I reviewed with, APPLICATIONS MANAGER-WELLNESS NURSE RN the medical history and the findings on physical examination. I discussed the patient s diagnosis and concur with the treatment plan as documented in his note. Please call [phone] or message me through Hybrent with any questions or concerns. PULMONOLOGY CONSULT [...] original note were not included. [facility] Wound Care/NPWT Progress Note Jun Snyder AGE: [...] for pain with pain medication, per staff development coordinator rn, prior to wound VAC dressing change. Wet [...] apply Betadine and allow to dry, leave STRATEGIC PARTNER DEVELOPMENT MANAGER daily and PRN Right wrist Abrasion: -cleanse with antibacterial soap/water, leave STRATEGIC PARTNER DEVELOPMENT MANAGER daily Sacral Stage 4 pressure injury (POA): [...] to follow Recommend to follow up at [facility] wound care center after hospital [...] History: Diagnosis Date Acute renal failure (ARF) ([facility]) 10/19/2019 Anemia 12/30/2021 Calcification of abdominal aorta ([facility]) 10/08/202309/[address] abd Diverticulosis 10/08/2023 ESRD on hemodialysis ([facility]) ([facility]) 10/26/2019 Hemodialysis patient ([facility]) ([facility]) HTN (hypertension) 12/01/2022 Hypertension IgA nephropathy IgA nephropathy determined by biopsy of kidney 10/26/2019 Missed vaccination due to patient refusal 10/08/2023 Has a number of non-scientific based beliefs which interfere with his understanding and acceptance of the medical benefit of vaccination. Nonrheumatic aortic valve stenosis 10/08/2023 Paroxysmal A-fib ([facility]) ([facility]) 08/18/2023 Tobacco abuse 10/08/2023 [2] Past Surgical History: Procedure Laterality Date APPENDECTOMY CARDIAC CATHETERIZATION N/A 10/09/2024 Performed by Bob Watson MD at [facility] Cardiac Cath/EP Lab CARDIAC CATHETERIZATION Bilateral 11/01/2024 Performed by Bob Watson MD at [facility] Cardiac Cath/EP Lab CARDIAC CATHETERIZATION N/A 11/01/2024 Performed by Bob Watson MD at [facility] Cardiac Cath/EP Lab COLONOSCOPY N/A 01/24/2025 Performed by Chadd Davis MD at [facility] ENDOSCOPY FISTULAGRAM (HISTORICAL) Left 09/15/2021 LEFT UPPER ARM HX AV FISTULA CREATION IR EMBOLIZATION 10/14/2024 IR EMBOLIZATION 10/14/2024 [facility] SPECIAL PROCEDURES IR FISTULAGRAM 08/07/2022 IR FISTULAGRAM [...] needed (PRN constipation). [DISCONTINUED] epoetin rowan-epbx (Retacrit) 38282 UNIT/ML injection Inject 0.79 mL (7,900 Units) under the skin 1 (one) time per week. (Patient not taking: Reported on 02/21/2025) [DISCONTINUED] pantoprazole (ProtoNix) 40 MG injection Infuse 40 mg into a venous catheter 2 times daily. Cosigned by Ahsan Gill DO at 02/26/2025 4:59 PM EDT [facility] Anticoagulation Management Service ([facility]) Inpatient Warfarin Consult HPI: Jun Snyder is a 59 y.o. male admitted on 02/20/2025 for Hemoptysis [R04.2]. Medical History[1] Patient is on warfarin for mechanical AVR and has a goal INR 2.0 - 3.0. Patient was referred to [facility], but so far has been managed at facilities, most recently [facility]. Pt's home dose of warfarin is [...] RPh [facility] Consult Service is available daily [phone] via Hybrent Secure Chat. [1] Past Medical History: Diagnosis Date Acute renal failure (ARF) ([facility]) 10/19/2019 Anemia 12/30/2021 Calcification of abdominal aorta ([facility]) 10/08/202309/[address] abd Diverticulosis 10/08/2023 ESRD on hemodialysis ([facility]) ([facility]) 10/26/2019 Hemodialysis patient ([facility]) ([facility]) HTN (hypertension) 12/01/2022 Hypertension IgA nephropathy IgA nephropathy determined by biopsy of kidney 10/26/2019 Missed vaccination due to patient refusal 10/08/2023 Has a number of non-scientific based beliefs which interfere with his understanding and acceptance of the medical benefit of vaccination. Nonrheumatic aortic valve stenosis 10/08/2023 Paroxysmal A-fib ([facility]) ([facility]) 08/18/2023 Tobacco abuse 10/08/2023 Nephrology Progress Note [...] original note were not included. PHYSICAL THERAPY [facility] Initial Evaluation Name/MRN: Jair Snyder ([id number]) Evaluation Date: 02/25/2025 Date of : 1965 Admission Date: 02/20/2025 5:41 PM Age: 59 y.o. Room/Bed: [facility]/3334 A Discharge Recommendation: Detention Facility Equipment Needed: [...] Diagnosis Date Noted Hemoptysis 02/20/2025 Severe malnutrition ([facility]) ([facility]) 01/19/2025 Complication of tracheostomy ([facility]) ([facility]) 01/19/2025 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 01/12/2025 Acute respiratory failure with hypoxia ([facility]) [J96.01] 01/08/2025 Tracheostomy care ([facility]) [Z43.0] 01/08/2025 Pulmonary embolism ([facility]) 01/08/2025 Sacral osteomyelitis ([facility]) ([facility]) 01/03/2025 Pneumonia of both lungs due to methicillin susceptible Staphylococcus aureus (MSSA) ([facility]) 01/01/2025 Leukocytosis 12/30/2024 Decubitus ulcer of sacral region, unstageable ([facility]) 12/30/2024 Peritonitis due to fungus ([facility]) 11/30/2024 History of abdominal surgery 11/30/2024 Leg DVT (deep venous thromboembolism), acute, left ([facility]) 11/30/2024 Ischemic ulcer of toe of left foot, limited to breakdown of skin ([facility]) 11/30/2024 Tracheostomy dependence ([facility]) 11/30/2024 Pleural effusion 11/28/2024 Gastric ulceration 2024 Atrial flutter, unspecified type ([facility]) 10/03/2024 RSV (acute bronchiolitis due to respiratory syncytial virus) 10/03/2024 Diverticulosis 10/08/2023 Nonrheumatic aortic valve stenosis 10/08/2023 Calcification of abdominal aorta ([facility]) 10/08/2023 Missed vaccination due to patient refusal 10/08/2023 Tobacco abuse 10/08/2023 Alcohol use disorder in remission 10/08/2023 Paroxysmal A-fib ([facility]) ([facility]) 08/18/2023 HTN (hypertension) 12/01/2022 ESRD on hemodialysis ([facility]) ([facility]) 10/26/2019 IgA nephropathy determined by biopsy of kidney 10/26/2019 BRBPR (bright red blood per rectum) 01/19/2025 Aortic stenosis 10/03/2024 Upper GI bleed 10/03/2024 S/P AVR 10/03/2024 Acute hypoxic respiratory failure ([facility]) 10/03/2024 Acute encephalopathy 10/03/2024 Pneumoperitoneum 10/03/2024 Anemia [...] Raw Score (No Stairs) : 15 [facility] Score: Transferred to chair/commode Plan Pt would [...] of Care supervision is transferred to a [facility] Therapy Services Physical Therapist. Goals and/or treatment plan was established in collaboration with patient/family/other representatives. [1] Past Medical History: Diagnosis Date Acute renal failure (ARF) ([facility]) 10/19/2019 Anemia 12/30/2021 Calcification of abdominal aorta ([facility]) 10/08/202309/[address] abd Diverticulosis 10/08/2023 ESRD on hemodialysis ([facility]) ([facility]) 10/26/2019 Hemodialysis patient ([facility]) ([facility]) HTN (hypertension) 12/01/2022 Hypertension IgA nephropathy IgA nephropathy determined by biopsy of kidney 10/26/2019 Missed vaccination due to patient refusal 10/08/2023 Has a number of non-scientific based beliefs which interfere with his understanding and acceptance of the medical benefit of vaccination. Nonrheumatic aortic valve stenosis 10/08/2023 Paroxysmal A-fib ([facility]) ([facility]) 08/18/2023 Tobacco abuse 10/08/2023 [2] Past Surgical History: Procedure Laterality Date APPENDECTOMY CARDIAC CATHETERIZATION N/A 10/09/2024 Performed by Bob Watson MD at [facility] Cardiac Cath/EP Lab CARDIAC CATHETERIZATION Bilateral 11/01/2024 Performed by Bob Watson MD at [facility] Cardiac Cath/EP Lab CARDIAC CATHETERIZATION N/A 11/01/2024 Performed by Bob Watson MD at [facility] Cardiac Cath/EP Lab COLONOSCOPY N/A 01/24/2025 Performed by Chadd Davis MD at [facility] ENDOSCOPY FISTULAGRAM (HISTORICAL) Left 09/15/2021 LEFT UPPER ARM HX AV FISTULA CREATION IR EMBOLIZATION 10/14/2024 IR EMBOLIZATION 10/14/2024 [facility] SPECIAL PROCEDURES IR FISTULAGRAM 08/07/2022 IR FISTULAGRAM 08/07/2022 [facility] IR IMAGING TONSILLECTOMY (HISTORICAL) Hospitalist Progress Note [...] bilateral pleural effusions. 5. Cholelithiasis, and diminutive wilton kidneys. Seen by pulm service Started on IV abx Started on heparin gtt as well Interval History: pt feels ok Some dizziness at times No more bleeding issues 02/23 Pt awake Reports his PEG is uncomfortable-- wants removed if able No CP 02/24 Pt awake Some cough at times Sob better 02/25 Pt awake No sob today No CP Adult diet Regular @IODETAILS@ @[id number]@ Medications: Continuous Meds[1] Scheduled Meds[2] Recent Labs [...] TID WC warfarin, 1.5 mg, Oral, Once [facility] Anticoagulation Management Service ([facility]) Inpatient Warfarin Consult HPI: Jun Snyder is a 59 y.o. male admitted on 02/20/2025 for Hemoptysis [R04.2]. Medical History[1] Patient is on warfarin for mechanical AVR and has a goal INR 2.0 - 3.0. Patient was referred to [facility], but so far has been managed at facilities, most recently [facility]. Pt's home dose of warfarin is [...] PharmD [facility] Consult Service is available daily [phone] via Hybrent Secure Chat. [1] Past Medical History: Diagnosis Date Acute renal failure (ARF) ([facility]) 10/19/2019 Anemia 12/30/2021 Calcification of abdominal aorta ([facility]) 10/08/202309/[address] abd Diverticulosis 10/08/2023 ESRD on hemodialysis ([facility]) ([facility]) 10/26/2019 Hemodialysis patient ([facility]) ([facility]) HTN (hypertension) 12/01/2022 Hypertension IgA nephropathy IgA nephropathy determined by biopsy of kidney 10/26/2019 Missed vaccination due to patient refusal 10/08/2023 Has a number of non-scientific based beliefs which interfere with his understanding and acceptance of the medical benefit of vaccination. Nonrheumatic aortic valve stenosis 10/08/2023 Paroxysmal A-fib ([facility]) ([facility]) 08/18/2023 Tobacco abuse 10/08/2023 Vancomycin therapy has [...] bilateral pleural effusions. 5. Cholelithiasis, and diminutive wilton kidneys. Seen by pulm service Started on IV abx Started on heparin gtt as well Interval History: pt feels ok Some dizziness at times No more bleeding issues 02/23 Pt awake Reports his PEG is uncomfortable-- wants removed if able No CP 02/24 Pt awake Some cough at times Sob better Adult diet Regular @IODETAILS@ @[id number]@ Medications: Continuous Meds[1] Scheduled Meds[2] Recent Labs 02/22/259902/23/2531 WBC 9.0 8.6 HGB 7.8* 8.6* PLT 282 316 Recent Labs 02/22/259902/23/25 003 NA 132* 135* K 3.4* 4.1 [...] Advance Directive: Full Code Ramón Romano MD, [facility] Hospitalist [1] heparin, 5-30 Units/kg/hr, Last Rate: 18 Units/kg/hr (02/24/25 0736) [2] B complex-vitamin C-folic acid, 1 capsule, Oral, Daily metoprolol tartrate, 25 mg, Oral, BID pantoprazole, 40 mg, Oral, qAM AC QUEtiapine, 25 mg, Per G Tube, Nightly sevelamer carbonate, 800 mg, Oral, TID WC vancomycin (Vancocin) intermittent dosing (placeholder), , Other, RX Placeholder [facility] Anticoagulation Management Service ([facility]) Inpatient Warfarin Consult HPI: Jun Snyder is a 59 y.o. male admitted on 02/20/2025 for Hemoptysis [R04.2]. Medical History[1] Patient is on warfarin for mechanical AVR and has a goal INR 2.0 - 3.0. Patient was referred to [facility], but so far has been managed at facilities, most recently [facility]. Pt's home dose of warfarin is [...] take over when discharged from facility. Ro Shelton, Natali [facility] Consult Service is available daily [phone] via Hybrent Secure Chat. [1] Past Medical History: Diagnosis Date Acute renal failure (ARF) ([facility]) 10/19/2019 Anemia 12/30/2021 Calcification of abdominal aorta ([facility]) 10/08/202309/[address] abd Diverticulosis 10/08/2023 ESRD on hemodialysis ([facility]) ([facility]) 10/26/2019 Hemodialysis patient ([facility]) ([facility]) HTN (hypertension) 12/01/2022 Hypertension IgA nephropathy IgA [...] from the original note were not included. [facility], Pulmonary Medicine [phone] PULMONARY PROGRESS NOTE. Patient - Jun Snyder, Age - 59 y.o. - 1965 Room Number - W3-334/W3-334 A Consulting - Raómn Romano MD Primary Care Physician - Leilani [...] PLT [phone] BMP: Recent Labs 02/21/255202/22/259902/23/25 003 NA 131* 132* 135* K 3.1* 3.4* 4.1 CL 91* 94* 99 CO2 BUN 29* 36* 21 CREATININE 2.89* 3.99* 2.78* GLUCOSE 74 121* 110* CALCIUM 9.3 9.2 9.2 MG 2.2 2.2 2.0 PHOS 2.0* 3.2 2.6 HEPATIC: Recent Labs 02/21/255202/22/259902/23/25 003 AST 39* 35* [...] PM EDT I have personally performed a nxwg-xe-gamu diagnostic evaluation on this patient on date of service 02/23/25. History, labs, imaging studies, and electronic medical record have been reviewed by me. This note documented by the [x]housekeeping room inspector []ARMIN reflects my history, exam, and medical [...] weekend. Please reach out with any concerns [facility] Anticoagulation Management [facility] ([facility]) Inpatient Warfarin Consult HPI: Jun Snyder is a 59 y.o. male admitted on 02/20/2025 for Hemoptysis [R04.2]. Medical History[1] Patient is on warfarin for mechanical AVR and has a goal INR 2.0 - 3.0. Patient was referred to [facility], but so far has been managed at facilities, most recently [facility]. Pt's home dose of warfarin is [...] PharmD [facility] Consult Service is available daily [phone] via Hybrent Secure flo.do. [1] Past Medical History: Diagnosis Date Acute renal failure (ARF) ([facility]) 10/19/2019 Anemia 12/30/2021 Calcification of abdominal aorta ([facility]) 10/08/202309/[address] abd Diverticulosis 10/08/2023 ESRD on hemodialysis ([facility]) ([facility]) 10/26/2019 Hemodialysis patient ([facility]) ([facility]) HTN (hypertension) 12/01/2022 Hypertension IgA nephropathy IgA nephropathy determined by biopsy of kidney 10/26/2019 Missed vaccination due to patient refusal 10/08/2023 Has a number of non-scientific based beliefs which interfere with his understanding and acceptance of the medical benefit of vaccination. Nonrheumatic aortic valve stenosis 10/08/2023 Paroxysmal A-fib ([facility]) ([facility]) 08/18/2023 Tobacco abuse 10/08/2023 Hospitalist Progress Note [...] bilateral pleural effusions. 5. Cholelithiasis, and diminutive wilton kidneys. Seen by pulm service Started on IV abx Started on heparin gtt as well Interval History: pt feels ok Some dizziness at times No more bleeding issues 02/23 Pt awake Reports his PEG is uncomfortable-- wants removed if able No CP Adult diet Regular @IODETAILS@ @[email or web address]@ Medications: Continuous Meds[1] Scheduled Meds[2] Recent Labs 02/21/255202/22/250 02/23/25 0032 WBC 7.0 9.0 8.6 HGB 8.3* 7.8* 8.6* PLT 316 282 316 Recent Labs 02/21/255202/22/250 02/23/25 0032 NA 131* 132* 135* K [...] original note were not included. [facility] Wound Care/NPWT Progress Note Jun Snyder AGE: [...] pain with PO pain medication, per staff development coordinator rn, prior to wound VAC dressing change. Wet [...] to follow Recommend to follow up at [facility] wound care center after hospital [...] History: Diagnosis Date Acute renal failure (ARF) ([facility]) 10/19/2019 Anemia 12/30/2021 Calcification of abdominal aorta ([facility]) 10/08/202309/[address] abd Diverticulosis 10/08/2023 ESRD on hemodialysis ([facility]) ([facility]) 10/26/2019 Hemodialysis patient ([facility]) ([facility]) HTN (hypertension) 12/01/2022 Hypertension IgA nephropathy IgA nephropathy determined by biopsy of kidney 10/26/2019 Missed vaccination due to patient refusal 10/08/2023 Has a number of non-scientific based beliefs which interfere with his understanding and acceptance of the medical benefit of vaccination. Nonrheumatic aortic valve stenosis 10/08/2023 Paroxysmal A-fib ([facility]) ([facility]) 08/18/2023 Tobacco abuse 10/08/2023 [2] Past Surgical History: Procedure Laterality Date APPENDECTOMY CARDIAC CATHETERIZATION N/A 10/09/2024 Performed by Bob Watson MD at [facility] Cardiac Cath/EP Lab CARDIAC CATHETERIZATION Bilateral 11/01/2024 Performed by Bob Watson MD at [facility] Cardiac Cath/EP Lab CARDIAC CATHETERIZATION N/A 11/01/2024 Performed by Bob Watson MD at [facility] Cardiac Cath/EP Lab COLONOSCOPY N/A 01/24/2025 Performed by Chadd Davis MD at [facility] ENDOSCOPY FISTULAGRAM (HISTORICAL) Left 09/15/2021 LEFT UPPER ARM HX AV FISTULA CREATION IR EMBOLIZATION 10/14/2024 IR EMBOLIZATION 10/14/2024 [facility] SPECIAL PROCEDURES IR FISTULAGRAM 08/07/2022 IR FISTULAGRAM [...] needed (PRN constipation). [DISCONTINUED] epoetin rowan-epbx (Retacrit) 33799 UNIT/ML injection Inject 0.79 mL (7,900 Units) [...] extremity edema Data: Labs: Recent Labs 02/21/255202/22/259902/23/25 0032 WBC 7.0 9.0 8.6 HGB 8.3* [...] any questions or concerns Bree Molina APRN WELLNESS NURSE RN A-G SAMPLE SHOE INSPECTOR AND REWORKER [facility] [place] [phone] Pt seen and examined independently by me. I reviewed with DENIA-WELLNESS NURSE RN the medical history and the findings on physical examination. I discussed the patient s diagnosis and concur with the treatment plan as documented in his note. Please call [phone] or message me through Hybrent with any questions or concerns. Pharmacy Managed [...] [] CrCl ml/min (Cockcroft-Gault, if BLOSSOM, no [employer] W[employer] OFFICER) Infectious Diagnosis: Pneumonia (target level = 15-20 [...] 4:36 PM Daryn Babcock PharmD (available on Max-Viz) Images from the original note were not included. [facility], Pulmonary Medicine [phone] PULMONARY PROGRESS NOTE. Patient - Jun Snyder, [...] PM EDT I have personally performed a evin-pt-cgoh diagnostic evaluation on this patient on date of service 02/22/2025. History, labs, imaging studies, and electronic medical record have been reviewed by me. This note documented by the [x]housekeeping room inspector []ARMIN reflects my history, exam, and medical [...] bilateral pleural effusions. 5. Cholelithiasis, and diminutive wilton kidneys. Seen by pulm service Started on IV abx Started on heparin gtt as well Interval History: pt feels ok Some dizziness at times No more bleeding issues Adult diet Regular @IODETAILS@ @[id number]@ Medications: Continuous Meds[1] Scheduled Meds[2] Recent Labs [...] original note were not included. OCCUPATIONAL THERAPY [facility] Name/MRN: Jair Snyder ([id number]) Date: 02/22/2025 PT refusing to participate in therapy this AM, will continue to follow and re approach for OT evortega. Ro Farnsworth OT Nephrology Progress Note Following [...] any questions or concerns Bree Molina APRN WELLNESS NURSE RN A-G SAMPLE SHOE INSPECTOR AND REWORKER [facility] [place] [phone] Pt seen and examined independently by me. I reviewed with APPLICATIONS MANAGER-WELLNESS NURSE RN the medical history and the findings on physical examination. I discussed the patient s diagnosis and concur with the treatment plan as documented in his note. Please call [phone] or message me through Hybrent with any questions or concerns. Images from the original note were not included. PHYSICAL THERAPY [facility] Name/MRN: Jair Snyder ([id number]) Date: 02/22/2025 Pt declined to work with therapy at this time, stating he wants to wait until after the wound vac is put on. Will reattempt at a later date. Sangeeta Sarabia PT Images from the original note were not included. PHYSICAL THERAPY [facility] Name/MRN: Jair Rodas Lillian ([id number]) Date: 02/21/2025 Pt declined to work with [...] Time 17 min documented in this encounter [facility] 03-05-2025 Miscellaneous Notes Formattin g of this note might be different from the original. Auth is now pending with [facility] for [facility]. Auth ID: [id number] . The insurance needs PT and OT notes- as PT note yesterday incomplete , they are both requested . Confirmed pickup time of 4:00pm on 03/05/25 by transport Deehubs at phone number [phone]. Location of facility drop off is [facility]. Facility notified via [facility], TCC notified on secure chat. Discharge med list transmitted to [facility] per [facility] request. Tcc requested transport to be set up at 4 PM to permit auth to be ongoing- facility can accept- just requested it be started today - financial rep notified, and discharge orders faxed, will confirm in secure chat the time and notify the tx team , orders in epic , rosendo done, [facility] . TCC requested OT notes this am - for ongoing auth - PT INR is now good 1.8 , notified facility want to send today , auth was only good thru 03/02 notified GIS GEOGRAPHER to confirm about auth requirements again today .. Transport in will call, wound VAC to go with patient, discharge orders in [facility] , LIVES at facility LTC - the facility wants to skill- tcc is working with them to have him discharge later today - transport in will call . Gutter Mouth Cutter notified to send orders and med [facility] Problem: Knowledge Deficit Goal: Patient/family/caregiver demonstrates [...] Note DC plan is return to ECF/SNF- [facility], no auth needed to return however [...] Progress Note 03/03/25 1025 Rapid Rounds Attendance Orthotic Fitter Planned Discharge Disposition Jail ([facility]- [facility], is LTC no AUTH needed) Today we still await Other (INR >or = 1.8 per SAILAJA) Clinical stability Attending completion of discharge workflow Additional Comments: We have a skilled AUTH that expires midnight tonight, however facility will still accept without AUTH per previous CM notes This Orthotic Fitter was tasked to follow this patient through the weekend. Chart and Care[facility] were reviewed. INR this am is 1.6, subtherapeutic. Facility updated. Transportation is in will call. culinary manager will continue to follow for transitional [...] list and updated notes transmitted to [facility] via [facility] per TCC request. Per epic review INR still 1.4 - notified ASILAJA of the discharge plan and auth is back - good thru 03/02 however he lives there and does have wound vac, tcc notified tx but remains on hep gtt . mechanical AVR and has a goal INR 2.0 - 3.0. however per SAILAJA he can discharge at 1.8 - and need labs post at snf to follow . Gutter Mouth Cutter tasked to send wound vac and clinicals- requested PT/OT notes for ongoing auth . Rosendo done- transport in will call to return to [facility] where he lives facility did want [...] Roundtrip in will call per TCC. Tasked GIS GEOGRAPHER to set up transport in will call, [...] therapy to start auth for [facility]. Continues on IV antibiotics. On a heparin gtt. SMS following to change to Coumadin. INR 13 today. Plan is to return to [facility]. . Length of Stay (Days): 7 GMLOS: [...] therapy notes. Want to skill him at [facility]. Started on IV antibiotics for aspiration pneumonia. Continues on a heparin gtt. . Updated notes sent to [facility] via [facility] per [facility] request. Await review and response regarding [...] pressure injuries/wounds this shift so RN SHAQ [facility] would prefer to SKILL patient- LTC. + [...] Interventions Goal: Promote nutritional intake Outcome: Progressing [facility] would prefer to SKILL patient- LTC. + bedhold will return - has woundVAC and ivab on hep gtt, not ready for discharge , [facility] tasked to send clinicals facility is updated . Updated notes [facility] to [facility] request. Await review and [...] Outcome: Not Progressing Has dialysis at facility, [facility].. Pt came to ER from dialysis due to hemoptysis. Had a trach removed 01/19. He is a bed hold at [facility]. They would like to skill him if able. Unable to tell me where he went to dialysis this am, asking facility. Referral placed to [facility] Return - [facility] via [facility] per TCC request. Await [...] of blood components. documented in this encounter [facility] 03-05-2025 Note [facility] Hospital course Narrative Images from the original note were not included. Hospitalist Discharge Summary - [facility] ([facility]) Jun Snyder : 1965 Admit date: 02/20/2025 Discharge date: 03/05/2025 Admitting Physician: Bettye Pierre MD Primary Care Physician: Leilani Troncoso Recommended Follow-up: [facility] Ost[facility] [address] [facility] [address] [facility] [address] [place] [address] [facility] [address] Call Call and schedule appointment [...] "CHOL" No results found for: "PHART", "PO2ART", "FDG3PZK" Recent Labs 03/04/25 0156 03/04/25 0946 03/05/25 0343 INR 1.5* 1.6* 1.8* No results for input(s): "DDIMER" in the last 72 hours. No results found for: "HGBA1C" No results found for: "TSH" Urine Culture: No results found for this or any previous visit. Imaging: CTA chest angiogram w and/or wo IV contrast Result Date: 02/20/2025 Patient Name: JUN SNYDER : 1965 [facility]#: [id number] Exam Date/Time: 02/20/2025 19:01 Procedure: CT CHEST [...] bilateral pleural effusions. 5. Cholelithiasis, and diminutive w[place] kidneys. Report Dictated on Electronically Signed By: [...] Your Medications These medications were sent to [facility] [address] [place] [address] [address] [facility] [address] [facility] [address] metoprolol tartrate 25 MG tablet pantoprazole 40 MG EC tablet QUEtiapine 25 MG tablet sevelamer carbonate 800 MG tablet You can get these medications from any pharmacy Bring a paper prescription for each of these medications oxyCODONE 5 MG immediate release tablet Signed: Anthony Hurtado DO 03/05/2025, 9:30 AM documented in this encounter [facility] 03-03-2025 Nurse Note Patient Name: Jun Snyder Patient : 1965 Acct: [id number] Date of Admission: 02/20/2025 [facility]: [facility] [...] - Before each treatment: Dialysis Machine No.: [id number] RO Machine Number: [id number] Dialyzer Lot No.: [id number] Tubing Lot Number: [id number] All Connections Secure: Yes Venous Parameters Set: Yes Arterial Parameters Set: Yes NS Bag: Yes Saline Line Double Clamped: Yes Dialyzer: Nipro Prime Volume (mL): 200 mL RO Machine Number: [id number] RO Machine Log Sheet Completed: Yes Machine Alarm Self Test: Completed, Passed (03/03/25 0740) Air Foam Detector: Tested, Proper Function, pH Reading Extracorporeal Circuit Tested for Integrity: Yes Machine Conductivity: 13.7 Manual Conductivity: 13.6 Manual Ph: 7 Bleach Test (Neg): Yes Bath Temperature: 36 C (96.8 F) Conductivity Meter Serial #: [id number] Machine Functioning Alarm Free? Yes Dialysis Bath: K+ (Potassium): 2 Ca+ (Calcium): 2.5 Na+ (Sodium): 137 HCO3 (Bicarb): 35 Bicarbonate Concentrate Lot No.: [id number] Acid Concentrate Lot No.: [id number] Chlorine Testing - Before each treatment and [...] mmHg 90 600 Yes pt alert, removed 17203/03/25 1200 350 mL/min 830 ml/hr -70 mmHg 180 mmHg 90 600 Yes pt resting, removed 19203/03/25 1215 350 mL/min 830 ml/hr -70 mmHg 170 mmHg 80 600 Yes pt sleeping, removed 214303/03/25 1230 350 mL/min 58044 ml/hr -70 mmHg 170 mmHg 80 600 [...] Active Problem List Diagnosis Anemia Paroxysmal A-fib ([facility]) ([facility]) HTN (hypertension) ESRD on hemodialysis ([facility]) ([facility]) IgA nephropathy determined by biopsy of kidney Diverticulosis Nonrheumatic aortic valve stenosis Calcification of abdominal aorta ([facility]) Missed vaccination due to patient refusal Tobacco abuse Alcohol use disorder in remission Atrial flutter, unspecified type ([facility]) RSV (acute bronchiolitis due to respiratory syncytial virus) Aortic stenosis Upper GI bleed S/P AVR Acute hypoxic respiratory failure ([facility]) Acute encephalopathy Pneumoperitoneum Gastric ulceration Severe malnutrition ([facility]) ([facility]) Pleural effusion Peritonitis due to fungus ([facility]) History of abdominal surgery Leg DVT (deep venous thromboembolism), acute, left ([facility]) Ischemic ulcer of toe of left foot, limited to breakdown of skin ([facility]) Tracheostomy dependence ([facility]) Leukocytosis Decubitus ulcer of sacral region, unstageable ([facility]) Pneumonia of both lungs due to methicillin susceptible Staphylococcus aureus (MSSA) ([facility]) Sacral osteomyelitis ([facility]) ([facility]) Acute respiratory failure with hypoxia ([facility]) [J96.01] Tracheostomy care ([facility]) [Z43.0] Pulmonary embolism (HCC) jail (current) use of antibiotics Complication of tracheostomy (CMS/HCC) (HCC) BRBPR (bright red blood per rectum) Hemoptysis [3] heparin, 5-30 Units/kg/hr, Last Rate: 20 Units/kg/hr (03/03/25706) In patient's chart, d/t patient being on his call light excessively and finally telling me he wants something for pain. Please see eMAR for administration Patient Name: Jun Snyder Patient : 1965 Acct: [id number] Date of Admission: 02/20/2025 [facility] [...] - Before each treatment: Dialysis Machine No.: [id number] RO Machine Number: [id number] Dialyzer Lot No.: [id number] Tubing Lot Number: [id number] All Connections Secure: Yes Venous Parameters Set: Yes Arterial Parameters Set: Yes NS Bag: Yes Saline Line Double Clamped: Yes Dialyzer: Nipro Prime Volume (mL): 200 mL RO Machine Number: [id number] RO Machine Log Sheet Completed: Yes Machine Alarm Self Test: Completed, Passed (03/01/25 07) Air Foam Detector: Tested, Proper Function, pH Reading Extracorporeal Circuit Tested for Integrity: Yes Machine Conductivity: 13.6 Manual Conductivity: 13.5 Manual Ph: 7.2 Bleach Test (Neg): Yes Bath Temperature: 36 C (96.8 F) Conductivity Meter Serial #: [id number] Machine Functioning Alarm Free? Yes Dialysis Bath: K+ (Potassium): 3 Ca+ (Calcium): 2.5 Na+ (Sodium): 137 HCO3 (Bicarb): 35 Bicarbonate Concentrate Lot No.: [id number] Acid Concentrate Lot No.: [id number] Chlorine Testing - Before each treatment and [...] (CMS/HCC) (HCC) HTN (hypertension) ESRD on hemodialysis ([facility]) ([facility]) IgA nephropathy determined by biopsy of kidney Diverticulosis Nonrheumatic aortic valve stenosis Calcification of abdominal aorta ([facility]) Missed vaccination due to patient refusal Tobacco abuse Alcohol use disorder in remission Atrial flutter, unspecified type (HCC) RSV (acute bronchiolitis due to respiratory syncytial virus) Aortic stenosis Upper GI bleed S/P AVR Acute hypoxic respiratory failure ([facility]) Acute encephalopathy Pneumoperitoneum Gastric ulceration Severe malnutrition [...] susceptible Staphylococcus aureus (MSSA) (HCC) Sacral osteomyelitis ([facility]/HCC) (HCC) Acute respiratory failure with hypoxia ([facility]) [J96.01] Tracheostomy care ([facility]) [Z43.0] Pulmonary embolism ([facility]) jail (current) use of antibiotics Complication of tracheostomy ([facility]/HCC) ([facility]) BRBPR (bright red blood per rectum) Hemoptysis [3] heparin, 5-30 Units/kg/hr, Last Rate: 18 Units/kg/hr (03/01/25 0739) This RN walked into pt's room and noticed a running heat gun that was plugged into the wall. Pt has been stating the room is too cold, and that maintenance would not fix the problem. This RN notified nurse manger of the heat gun, the patients growing concerns of the temperature in the room, and the patients agitation. Nurse applications engineering manager notified maintenance of the problem, and [...] nurses aides cannot leave the floor to sheepskin pickler his packages, and pt was agreeable to this as well. Patient Name: Jun Snyder Patient : 1965 Acct: [id number] Date of Admission: 02/20/2025 [facility] [...] 0805. Report Received from Primary RN at 0779. Primary RN (First Initial, Last Name, Title): [...] whom: na Date of Last Dressing Change: justine blair20[address]?: na Red [...] (0) 3 Regular None (Room air) Clear [place] Warm;Dry;No swelling Soft Active 02/27/25 1202 Alert (0) 3 Regular None (Room air) Clear [place] Warm Soft -- 02/27/25 1240 -- -- [...] - Before each treatment: Dialysis Machine No.: [id number] RO Machine Number: [id number] Dialyzer Lot No.: [id number] Tubing Lot Number: [id number] All Connections Secure: Yes Venous Parameters Set: Yes Arterial Parameters Set: Yes NS Bag: Yes Saline Line Double Clamped: Yes Dialyzer: Nipro Prime Volume (mL): 200 mL RO Machine Number: [id number] RO Machine Log Sheet Completed: Yes Machine Alarm Self Test: Completed, Passed (02/27/25 07) Air Foam Detector: Tested, Proper Function, pH Reading Extracorporeal Circuit Tested for Integrity: Yes Machine Conductivity: 13.7 Manual Conductivity: 143.6 Manual Ph: 7 Bleach Test (Neg): Yes Bath Temperature: 36 C (96.8 F) Conductivity Meter Serial #: [id number] Machine Functioning Alarm Free? Yes Dialysis Bath: K+ (Potassium): 3 Ca+ (Calcium): 2.5 Na+ (Sodium): 137 HCO3 (Bicarb): 35 Bicarbonate Concentrate Lot No.: [id number] Acid Concentrate Lot No.: [id number] Chlorine Testing - Before each treatment and every 4 hours: Time On: 842 Time Off: 1143 Treatment Goal: 2L Weight [...] Active Problem List Diagnosis Anemia Paroxysmal A-fib ([facility]/HCC) ([facility]) HTN (hypertension) ESRD on hemodialysis ([facility]) ([facility]) IgA nephropathy determined by biopsy of kidney Diverticulosis Nonrheumatic aortic valve stenosis Calcification of abdominal aorta ([facility]) Missed vaccination due to patient refusal Tobacco abuse Alcohol use disorder in remission Atrial flutter, unspecified type ([facility]) RSV (acute bronchiolitis due to respiratory syncytial virus) Aortic stenosis Upper GI bleed S/P AVR Acute hypoxic respiratory failure ([facility]) Acute encephalopathy Pneumoperitoneum Gastric ulceration Severe malnutrition (CMS/HCC) ([facility]) Pleural effusion Peritonitis due to fungus ([facility]) History of abdominal surgery Leg DVT (deep venous thromboembolism), acute, left (HCC) Ischemic ulcer of toe of left foot, 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) Tracheostomy dependence (HCC) Leukocytosis Decubitus ulcer of sacral region, unstageable (HCC) Pneumonia of both lungs due to methicillin susceptible Staphylococcus aureus (MSSA) ([facility]) Sacral osteomyelitis ([facility]) ([facility]) Acute respiratory failure with hypoxia ([facility]) [J96.01] Tracheostomy care ([facility]) [Z43.0] Pulmonary embolism ([facility]) 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 Complication of tracheostomy ([facility]) ([facility]) BRBPR (bright red blood per rectum) Hemoptysis [...] and will see if the day shift supply chain vice president can put a request in. 2321- Notified Dr. Hathaway of patient complaint of SOB and worsening chest pain that he described as dull and tight. Vitals WDL. STAT EKG ordered, patient given Nitrostat, and troponin sent down. 233- Notified [employer] W[employer] OFFICER to assess the patient. Patient Name: Jun Snyder Patient : 1965 Acct: [id number] Date of Admission: 02/20/2025 [facility] [...] 1058. Report Received from Primary RN at 6362. Primary RN (First Initial, Last Name, Title): [...] WBC 8.6 02/23/2025 0032 HGB 8.6 (L) 02/23/20252 HGB 9.4 11/11/2024 0230 HCT 27.9 (L) 02/23/2025 0032 PLT 316 02/23/2025 0032 NA 135 (L) 02/23/2025 0032 K 4.1 02/23/2025 0032 CL 99 02/23/2025 0032 CO2 25 02/23/2025 0032 BUN 21 02/23/2025 0032 CREATININE 2.78 (H) 02/23/2025 003 CREATININE 9.99 (H) 10/27/2019 0545 CALCIUM 9.2 02/23/202531 PHOS 2.6 02/23/2025 003 IV Drips and Rate/Dose Continuous Meds[3] Safety - Before each treatment: Dialysis Machine No.: [id number] RO Machine Number: [id number] Dialyzer Lot No.: [id number] Tubing Lot Number: [id number] All Connections Secure: Yes Venous Parameters Set: Yes Arterial Parameters Set: Yes NS Bag: Yes Saline Line Double Clamped: Yes Dialyzer: Nipro Prime Volume (mL): 200 mL RO Machine Number: [id number] RO Machine Log Sheet Completed: Yes Machine Alarm Self Test: Completed, Passed (02/24/25 0810) Air Foam Detector: Tested, Proper Function, pH Reading Extracorporeal Circuit Tested for Integrity: Yes Machine Conductivity: 13.7 Manual Conductivity: 13.7 Manual Ph: 7 Bleach Test (Neg): Yes Bath Temperature: 36 C (96.8 F) Conductivity Meter Serial #: [id number] Machine Functioning Alarm Free? Yes Dialysis Bath: K+ (Potassium): 3 Ca+ (Calcium): 2.5 Na+ (Sodium): 137 HCO3 (Bicarb): 35 Bicarbonate Concentrate Lot No.: [id number] Acid Concentrate Lot No.: [id number] Chlorine Testing - Before each treatment and [...] feed based on dietary recommendations) Provider Name: [facility] Provider Role: Hospitalist Method of Communication: Secure [...] Active Problem List Diagnosis Anemia Paroxysmal A-fib ([facility]) ([facility]) HTN (hypertension) ESRD on hemodialysis ([facility]) ([facility]) IgA nephropathy determined by biopsy of kidney Diverticulosis Nonrheumatic aortic valve stenosis Calcification of abdominal aorta ([facility]) Missed vaccination due to patient refusal Tobacco abuse Alcohol use disorder in remission Atrial flutter, unspecified type ([facility]) RSV (acute bronchiolitis due to respiratory syncytial virus) Aortic stenosis Upper GI bleed S/P AVR Acute hypoxic respiratory failure ([facility]) Acute encephalopathy Pneumoperitoneum Gastric ulceration Severe malnutrition ([facility]) ([facility]) Pleural effusion Peritonitis due to fungus ([facility]) History of abdominal surgery Leg DVT (deep venous thromboembolism), acute, left ([facility]) Ischemic ulcer of toe of left foot, limited to breakdown of skin ([facility]) Tracheostomy dependence ([facility]) Leukocytosis Decubitus ulcer of sacral region, unstageable ([facility]) Pneumonia of both lungs due to methicillin susceptible Staphylococcus aureus (MSSA) ([facility]) Sacral osteomyelitis ([facility]) ([facility]) Acute respiratory failure with hypoxia ([facility]) [J96.01] Tracheostomy care ([facility]) [Z43.0] Pulmonary embolism ([facility]) jail (current) use of antibiotics Complication of tracheostomy ([facility]) ([facility]) BRBPR (bright red blood per rectum) Hemoptysis [3] heparin, 5-30 Units/kg/hr, Last Rate: 18 Units/kg/hr (02/24/25 1601) Patient continuing to order packages when he was instructed not to, multiple times, while at the hospital. Dispatch called [employer] and said a package came to the mail courier but they will not have access to retreive until Wednesday morning. It is locked over the weekend. Wound Care consulted for Pressure Injury Prevention. Pt's Kee score= 13 on 02/23 Pt's pressure points assessed. Pt's Right Heel, Elbows, Occiput and ears all intact. Pt currently followed by Wound SAMPLE SHOE INSPECTOR AND REWORKER group for wounds to left toes, left plantar heel, right wrist, and sacrum with wound vac. For left toes, left heel, right wrist, and sacral wound assessments and treatment plan, please see Wound/Ostomy SAMPLE SHOE INSPECTOR AND REWORKER progress notes. [place] sheet noted at bedside and not on [...] Name: Jun Snyder Patient : 1965 Acct: [id number] Date of Admission: 02/20/2025 [facility] [...] Date/Time WBC 9.0 02/22/202599 HGB 7.8 (L) 02/22/2025 010 HGB 9.4 11/11/2024 0230 HCT 24.5 (L) 02/22/202599 PLT 282 02/22/2025 010 NA 132 (L) 02/22/2025 010 K 3.4 (L) 02/22/2025 010 CL 94 (L) 02/22/202599 CO2 25 02/22/2025 010 BUN 36 (H) 02/22/202599 CREATININE 3.99 (H) 02/22/202599 CREATININE 9.99 (H) 10/27/2019 0545 CALCIUM 9.2 02/22/202599 PHOS 3.2 02/22/202599 IV Drips and Rate/Dose Continuous Meds[3] Safety - Before each treatment: Dialysis Machine No.: [id number] RO Machine Number: [id number] Dialyzer Lot No.: [id number] Tubing Lot Number: [id number] All Connections Secure: Yes Venous Parameters Set: Yes Arterial Parameters Set: Yes NS Bag: Yes Saline Line Double Clamped: Yes Dialyzer: Nipro Prime Volume (mL): 200 mL RO Machine Number: [id number] RO Machine Log Sheet Completed: Yes Machine Alarm Self Test: Completed, Passed (test passed at 0938) (02/22/25 0940) Air Foam Detector: Tested, Proper Function, pH Reading Extracorporeal Circuit Tested for Integrity: Yes Machine Conductivity: 13.7 Manual Conductivity: 13.8 Manual Ph: 7 Bleach Test (Neg): Yes (water check negative at 1215) Bath Temperature: 36 C (96.8 F) Conductivity Meter Serial #: [id number] Machine Functioning Alarm Free? Yes Dialysis Bath: K+ (Potassium): 3 Ca+ (Calcium): 2 Na+ (Sodium): 137 HCO3 (Bicarb): 35 Bicarbonate Concentrate Lot No.: [id number] Acid Concentrate Lot No.: [id number] Chlorine Testing - Before each treatment and [...] 120 mmHg 90 600 Yes Brigitte Molina SAMPLE SHOE INSPECTOR AND REWORKER at bedside, no voiced complaints. fluid removal [...] feed based on dietary recommendations) Provider Name: [facility] Provider Role: Hospitalist Method of Communication: Secure [...] Active Problem List Diagnosis Anemia Paroxysmal A-fib ([facility]) ([facility]) HTN (hypertension) ESRD on hemodialysis ([facility]) ([facility]) IgA nephropathy determined by biopsy of kidney Diverticulosis Nonrheumatic aortic valve stenosis Calcification of abdominal aorta ([facility]) Missed vaccination due to patient refusal Tobacco abuse Alcohol use disorder in remission Atrial flutter, unspecified type ([facility] CARE) RSV (acute bronchiolitis due to respiratory syncytial virus) Aortic stenosis Upper GI bleed S/P AVR Acute hypoxic respiratory failure ([facility]) Acute encephalopathy Pneumoperitoneum Gastric ulceration Severe malnutrition ([facility]/HCC) (HCC) Pleural effusion Peritonitis due to fungus ([facility]) History of abdominal surgery Leg DVT (deep venous thromboembolism), acute, left ([facility]) Ischemic ulcer of toe of left foot, limited to breakdown of skin ([facility]) Tracheostomy dependence ([facility]) Leukocytosis Decubitus ulcer of sacral region, unstageable ([facility]) Pneumonia of both lungs due to methicillin susceptible Staphylococcus aureus (MSSA) ([facility]) Sacral osteomyelitis ([facility]) ([facility]) Acute respiratory failure with hypoxia ([facility]) [J96.01] Tracheostomy care ([facility]) [Z43.0] Pulmonary embolism (HCC) 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 Complication of tracheostomy [...] request. This RN spoke with RN at [facility] to verify medications that pt is taking. Pt arrived to hospital with wound vac on coccyx. Pt declined pictures to be taken of wound for charting. Pt states wound is being cared for by halfway facility. Pt also mentioned that his Left [...] " Pt arrived on floor via [employer] documented in this encounter [facility] 02-26-2025 Telephone encount er Note Called spoke with a nurse at the home he lives at. She declined to schedule any appointments at this time because they don't know when patient will be discharged. She said to call back once he is out the hospital. There is no other number to contact patient directly [facility] 02-26-2025 Miscellaneous Notes Formattin g [...] this? Thank you documented in this encounter [facility] 02-23-2025 Telephone encount er Note Called LM to call back and schedule CT and hospital follow up with any ARMIN [facility] 02-23-2025 Miscellaneous Notes Formattin g of this note might be different from the original. Called LM to call back and schedule CT and hospital follow up with any ARMIN Antonio, can we please schedule a 6-week CT scan for this patient and a follow-up appointment after this? Thank you documented in this encounter [facility] 02-23-2025 Consult note Formatting of [...] was bright red and it stopped just 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 Reason for Consult: PEG [...] constipation). 02/21/25 Historical Provider, epoetin rowan-epbx (Retacrit) 54285 UNIT/ML injection Inject 0.79 mL (7,900 Units) under the skin 1 (one) time per week. Patient not taking: Reported on 02/21/2025 12/04/24 02/21/25 DENIA Girard CNP pantoprazole (ProtoNix) 40 MG injection Infuse 40 mg into a venous catheter 2 times daily. 11/28/24 02/21/25 Osiris Terrell APRN - WELLNESS NURSE RN Allergies: Lisinopril Social History[3] Family History[4] REVIEW [...] 02/20/2025 [facility] 1965 [id number] Exam Date/Time: 02/20/2025 19:01 Procedure: CT CHEST [...] bilateral pleural effusions. 5. Cholelithiasis, and diminutive wilton kidneys. Report Dictated on Electronically Signed By: [...] Jaskaran Bey MD General Surgery PGY-2 Pager [phone] [1] Past Medical History: Diagnosis Date Acute renal failure (ARF) ([facility]) 10/19/2019 Anemia 12/30/2021 Calcification of abdominal aorta ([facility]) 10/08/202309/[address] abd Diverticulosis 10/08/2023 ESRD on hemodialysis ([facility]) ([facility]) 10/26/2019 Hemodialysis patient ([facility]) ([facility]) HTN (hypertension) 12/01/2022 Hypertension IgA nephropathy IgA nephropathy determined by biopsy of kidney 10/26/2019 Missed vaccination due to patient refusal 10/08/2023 Has a number of non-scientific based beliefs which interfere with his understanding and acceptance of the medical benefit of vaccination. Nonrheumatic aortic valve stenosis 10/08/2023 Paroxysmal A-fib ([facility]) ([facility]) 08/18/2023 Tobacco abuse 10/08/2023 [2] Past Surgical History: Procedure Laterality Date APPENDECTOMY CARDIAC CATHETERIZATION N/A 10/09/2024 Performed by Bob Watson MD at [facility] Cardiac Cath/EP Lab CARDIAC CATHETERIZATION Bilateral 11/01/2024 Performed by Bob Watson MD at [facility] Cardiac Cath/EP Lab CARDIAC CATHETERIZATION N/A 11/01/2024 Performed by Bob Watson MD at [facility] Cardiac Cath/EP Lab COLONOSCOPY N/A 01/24/2025 Performed by Chadd Davis MD at [facility] ENDOSCOPY FISTULAGRAM (HISTORICAL) Left 09/15/2021 LEFT UPPER ARM HX AV FISTULA CREATION IR EMBOLIZATION 10/14/2024 IR EMBOLIZATION 10/14/2024 [facility] SPECIAL PROCEDURES IR FISTULAGRAM 08/07/2022 IR FISTULAGRAM [...] 0 min Stress: Stress Concern Present (02/21/2025) [employer] [place] [facility] [employer] - Occupational Stress Questionnaire Feeling of Stress : To some extent Social Connections: Unknown (02/21/2025) Social Connection and Isolation Panel [NHANES] Frequency of Communication with Friends and Family: More than three times a week Frequency of Social Gatherings with Friends and Family: Patient declined Attends Druze Services: Patient declined Active Member of Clubs [...] minutes (including chart/data review/analysis, care coordination, and [id number] encounter), and was spent discussing/counseling the patient/family [...] Care Surgery Department of Surgery [facility] Pager: [phone] ~~~~~~~~~~~~~~~~~~~~~~~~~~~~~~~~ ~~~~~~~~~~~~~~~~~~~~~~~~~~~~~ This note may have been dictated using [employer] Medical Practice Edition 2.6 and/or [employer] Voice Recognition Feature. The document was proofread; however, unrecognized voice recognition paid search marketing strategist errors may be present. [1] Patient Active Problem List Diagnosis Anemia Paroxysmal A-fib ([facility]) ([facility]) HTN (hypertension) ESRD on hemodialysis ([facility]) ([facility]) IgA nephropathy determined by biopsy of kidney Diverticulosis Nonrheumatic aortic valve stenosis Calcification of abdominal aorta ([facility]) Missed vaccination due to patient refusal Tobacco abuse Alcohol use disorder in remission Atrial flutter, unspecified type ([facility]) RSV (acute bronchiolitis due to respiratory syncytial virus) Aortic stenosis Upper GI bleed S/P AVR Acute hypoxic respiratory failure ([facility]) Acute encephalopathy Pneumoperitoneum Gastric ulceration Severe malnutrition ([facility]/HCC) ([facility]) Pleural effusion Peritonitis due to fungus ([facility]) History of abdominal surgery Leg DVT (deep venous thromboembolism), acute, left ([facility]) Ischemic ulcer of toe of left foot, limited to breakdown of skin ([facility]) Tracheostomy dependence ([facility]) Leukocytosis Decubitus ulcer of sacral region, unstageable ([facility]) Pneumonia of both lungs due to methicillin susceptible Staphylococcus aureus (MSSA) ([facility]) Sacral osteomyelitis ([facility]) ([facility]) Acute respiratory failure with hypoxia ([facility]) [J96.01] Tracheostomy care ([facility]) [Z43.0] Pulmonary embolism ([facility]) 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 Complication of tracheostomy ([facility]) ([facility]) BRBPR (bright red blood per rectum) Hemoptysis Associated Order(s): IP CONSULT TO INFECTIOUS DISEASES Images from the original note were not included. [facility] - Infectious Diseases Attending Consult [...] bilateral pleural effusions. 5. Cholelithiasis, and diminutive wilton kidneys. Past Medical History: Medical History[1] Past [...] 0 min Stress: Stress Concern Present (02/21/2025) [employer] [place] [employer] - Occupational Stress Questionnaire Feeling of Stress : To some extent Social Connections: Unknown (02/21/2025) Social Connection and Isolation Panel [NHANES] Frequency of Communication with Friends and Family: More than three times a week Frequency of Social Gatherings with Friends and Family: Patient declined Attends Druze Services: Patient declined Active Member of Clubs [...] History: Diagnosis Date Acute renal failure (ARF) ([facility]) 10/19/2019 Anemia 12/30/2021 Calcification of abdominal aorta ([facility]) 10/08/202309/[address] abd Diverticulosis 10/08/2023 ESRD on hemodialysis ([facility]) ([facility]) 10/26/2019 Hemodialysis patient ([facility]) ([facility]) HTN (hypertension) 12/01/2022 Hypertension IgA nephropathy IgA nephropathy determined by biopsy of kidney 10/26/2019 Missed vaccination due to patient refusal 10/08/2023 Has a number of non-scientific based beliefs which interfere with his understanding and acceptance of the medical benefit of vaccination. Nonrheumatic aortic valve stenosis 10/08/2023 Paroxysmal A-fib ([facility]) ([facility]) 08/18/2023 Tobacco abuse 10/08/2023 [2] Past Surgical History: Procedure Laterality Date APPENDECTOMY CARDIAC CATHETERIZATION N/A 10/09/2024 Performed by Bob Watson MD at [facility] Cardiac Cath/EP Lab CARDIAC CATHETERIZATION Bilateral 11/01/2024 Performed by Bob Watson MD at [facility] Cardiac Cath/EP Lab CARDIAC CATHETERIZATION N/A 11/01/2024 Performed by Bob Watson MD at [facility] Cardiac Cath/EP Lab COLONOSCOPY N/A 01/24/2025 Performed by Chadd Davis MD at [facility] ENDOSCOPY FISTULAGRAM (HISTORICAL) Left 09/15/2021 LEFT UPPER ARM HX AV FISTULA CREATION IR EMBOLIZATION 10/14/2024 IR EMBOLIZATION 10/14/2024 [facility] SPECIAL PROCEDURES IR FISTULAGRAM 08/07/2022 IR FISTULAGRAM 08/07/2022 [facility] IR IMAGING TONSILLECTOMY (HISTORICAL) [3] Current Facility-Administered [...] 9:31 AM Jolie Uribe RPh (available on Max-Viz) Associated Order(s): INPATIENT CONSULT TO WOUND CARE PROVIDERS Images from the original note were not included. [facility] Wound Care/NPWT Progress Note Jun Snyder AGE: [...] pain with PO pain medication, per staff development coordinator rn, prior to wound VAC dressing change. Wet [...] to follow Recommend to follow up at [facility] Outpatient wound care center after hospital [...] History: Diagnosis Date Acute renal failure (ARF) ([facility]) 10/19/2019 Anemia 12/30/2021 Calcification of abdominal aorta ([facility]) 10/08/202309/[address] abd Diverticulosis 10/08/2023 ESRD on hemodialysis ([facility]) ([facility]) 10/26/2019 Hemodialysis patient ([facility]) ([facility]) HTN (hypertension) 12/01/2022 Hypertension IgA nephropathy IgA nephropathy determined by biopsy of kidney 10/26/2019 Missed vaccination due to patient refusal 10/08/2023 Has a number of non-scientific based beliefs which interfere with his understanding and acceptance of the medical benefit of vaccination. Nonrheumatic aortic valve stenosis 10/08/2023 Paroxysmal A-fib ([facility]) ([facility]) 08/18/2023 Tobacco abuse 10/08/2023 [2] Past Surgical History: Procedure Laterality Date APPENDECTOMY CARDIAC CATHETERIZATION N/A 10/09/2024 Performed by Bob Watson MD at [facility] Cardiac Cath/EP Lab CARDIAC CATHETERIZATION Bilateral 11/01/2024 Performed by Bob Watson MD at [facility] Cardiac Cath/EP Lab CARDIAC CATHETERIZATION N/A 11/01/2024 Performed by Bob Watson MD at [facility] Cardiac Cath/EP Lab COLONOSCOPY N/A 01/24/2025 Performed by Chadd Davis MD at [facility] ENDOSCOPY FISTULAGRAM (HISTORICAL) Left 09/15/2021 LEFT UPPER ARM HX AV FISTULA CREATION IR EMBOLIZATION 10/14/2024 IR EMBOLIZATION 10/14/2024 [facility] SPECIAL PROCEDURES IR FISTULAGRAM 08/07/2022 IR FISTULAGRAM [...] needed (PRN constipation). [DISCONTINUED] epoetin rowan-epbx (Retacrit) 87673 UNIT/ML injection Inject 0.79 mL (7,900 Units) [...] & deltoids) Fluid Accumulation: Unable to assess Pastoral Assistant Strength: Not Performed Nutrition Assessment: 59yo male admitted from [facility] 02/20 due to coughing up [...] from NPO to Regular this morning. At [facility] diet was Potassium Restricted/Mech Soft/Thin [...] Total Energy Requirements (kcals/day): 30-35 kcal/kg = 7717-0014 kcal Weight Used for Protein Requirements: Current [...] lb) (08/28/24) % Weight Change (Calculated): -34.6 [place] Body Weight (lbs) (Calculated): 166 lbs [place] Body Weight (Kg) (Calculated): 75 kg % [place] Body Weight (Calculated): 81.1 % BMI (kg/m2) [...] soon to determine Jade Rodriguez RD Contact: [place] fanta [place] *[phone] Associated Order(s): INPATIENT CONSULT TO WOUND CARE PROVIDERS Images from the original note were not included. [facility] Wound Care CONSULT Note Jun Snyder AGE: [...] apply Betadine and allow to dry, leave STRATEGIC PARTNER DEVELOPMENT MANAGER daily and PRN Right wrist Abrasion: -cleanse with antibacterial soap/water, leave STRATEGIC PARTNER DEVELOPMENT MANAGER daily Sacral Stage 4 pressure injury (POA): [...] to follow Recommend to follow up at [facility] Outpatient wound care center after hospital discharge. Any questions or concerns please secure chat "[facility] wound/ostomy". Thank you for the consult! I [...] History: Diagnosis Date Acute renal failure (ARF) ([facility]) 10/19/2019 Anemia 12/30/2021 Calcification of abdominal aorta ([facility]) 10/08/202309/[address] abd Diverticulosis 10/08/2023 ESRD on hemodialysis ([facility]) ([facility]) 10/26/2019 Hemodialysis patient ([facility]) ([facility]) HTN (hypertension) 12/01/2022 Hypertension IgA nephropathy IgA nephropathy determined by biopsy of kidney 10/26/2019 Missed vaccination due to patient refusal 10/08/2023 Has a number of non-scientific based beliefs which interfere with his understanding and acceptance of the medical benefit of vaccination. Nonrheumatic aortic valve stenosis 10/08/2023 Paroxysmal A-fib ([facility]) ([facility]) 08/18/2023 Tobacco abuse 10/08/2023 [2] Past Surgical History: Procedure Laterality Date APPENDECTOMY CARDIAC CATHETERIZATION N/A 10/09/2024 Performed by Bob Watson MD at [facility] Cardiac Cath/EP Lab CARDIAC CATHETERIZATION Bilateral 11/01/2024 Performed by Bob Watson MD at [facility] Cardiac Cath/EP Lab CARDIAC CATHETERIZATION N/A 11/01/2024 Performed by Bob Watson MD at [facility] Cardiac Cath/EP Lab COLONOSCOPY N/A 01/24/2025 Performed by Chadd Davis MD at [facility] ENDOSCOPY FISTULAGRAM (HISTORICAL) Left 09/15/2021 LEFT UPPER ARM HX AV FISTULA CREATION IR EMBOLIZATION 10/14/2024 IR EMBOLIZATION 10/14/2024 [facility] SPECIAL PROCEDURES IR FISTULAGRAM 08/07/2022 IR FISTULAGRAM [...] needed (PRN constipation). [DISCONTINUED] epoetin rowan-epbx (Retacrit) 86240 UNIT/ML injection Inject 0.79 mL (7,900 Units) under the skin 1 (one) time per week. (Patient not taking: Reported on 02/21/2025) [DISCONTINUED] pantoprazole (ProtoNix) 40 MG injection Infuse 40 mg into a venous catheter 2 times daily. Cosigned by Ahsan Gill DO at 02/26/2025 4:59 PM EDT Associated Order(s): IP CONSULT TO PULMONOLOGY Images from the original note were not included. [facility], Pulmonary Medicine [phone] PULMONARY CONSULTATION NOTE. Patient - Jun Snyder, [...] Medications Medication Documentation Review Audit Reviewed by Esthre Robbins RN (Registered Nurse) on 02/21/25 at 0203 Medication Order Taking? Sig Documenting Provider Last Dose Status acetaminophen (Tylenol) 325 MG tablet [id number] No Take 650 mg by mouth every 6 hours as needed for mild pain (1-3) or fever. Patient not taking: Reported on 02/21/2025 Historical Provider, Unknown Active Ampicillin-Sulbactam Sodium (UNASYN IV) [id number] Infuse 3 g into a venous catheter Every 24 hours. Historical Provider, 02/14/25 2359 B complex-vitamin C-folic acid (Nephro-Nato Rx) 1 MG tablet [id number] Take 1 tablet by mouth daily. Historical Provider, Active bisacodyl (Dulcolax) 5 MG EC tablet [id number] Take 5 mg by mouth Daily as needed for constipation. Do not crush, chew, or split. Historical Provider, Active bisacodyl (Dulcolax) 5 mg split suppository [id number] Insert 10 mg into the rectum Daily as needed (PRN constipation). Historical Provider, Active epoetin rowan-epbx (Retacrit) 91179 UNIT/ML injection [id number] No Inject 0.79 mL (7,900 Units) under the skin 1 (one) time per week. Patient not taking: Reported on 02/21/2025 DENIA Girard CNP Unknown Active ipratropium-albuterol (Duo-Neb) 0.5-2.5 mg/3 mL nebulizer solution [id number] Yes Take 3 mL by nebulization every 8 hours. DENIA Girard CNP Past Week Active Lidocaine 4 % patch [id number] Apply 1 patch topically daily. DENIA Girard CNP Active magnesium hydroxide (Milk of Magnesia) 800 MG/5ML suspension [id number] Take 30 mL by mouth Daily as needed for constipation (if no bm in 3 days). Historical Provider, Active melatonin 5 MG tablet [id number] 1 tablet (5 mg) by Per G Tube route Nightly as needed (insomnia). DENIA Girard CNP Active metoprolol tartrate (Lopressor) 25 MG tablet [id number] 1 tablet (25 mg) by Per G Tube route 2 times daily. DENIA Girard CNP Active midodrine (Proamatine) 5 MG tablet [id number] 3 tablets (15 mg) by Per G Tube route every 6 hours. DENIA Girard CNP 02/14/25 235 naloxone in sodium chloride (PF) injection injection [id number] Inject 0.04 mg into the shoulder, thigh, or buttocks as needed for opioid reversal or respiratory depression. Historical Provider, Active oxyCODONE (Roxicodone) 5 MG immediate release tablet [id number] Take 1 tablet (5 mg) by mouth every 6 hours as needed for moderate pain (4-6) for up to 5 days. Barb Dawkins MD 02/14/252358 pantoprazole (ProtoNix) 40 MG injection [id number] Infuse 40 mg into a venous catheter 2 times daily. DENIA Girard CNP Active QUEtiapine (SEROquel) 25 MG tablet [id number] 1 tablet (25 mg) by Per G Tube route Nightly. DENIA Girard CNP 02/14/25 235 sevelamer (Renagel) 800 MG tablet [id number] Take 800 mg by mouth 3 times daily (with meals). Swallow tablet whole; do not crush, break, or chew. Give with meals for CKD/dialysis Historical Provider, Active warfarin (Coumadin) 1 MG tablet [id number] Yes Take as directed per After Visit [...] time. LABS and Studies: CBC: Recent Labs 02/20/255 02/21/25 0053 WBC 9.4 [...] 10/09/2024 Performed by Bob Watson MD at [facility] Cardiac Cath/EP Lab CARDIAC CATHETERIZATION Bilateral 11/01/2024 Performed by Bob Watson MD at [facility] Cardiac Cath/EP Lab CARDIAC CATHETERIZATION N/A 11/01/2024 Performed by Bob Watson MD at [facility] Cardiac Cath/EP Lab COLONOSCOPY N/A 01/24/2025 Performed by Chdad Davis MD at [facility] ENDOSCOPY FISTULAGRAM (HISTORICAL) Left 09/15/2021 LEFT UPPER [...] PM EDT I have personally performed a [id number]-[id number] diagnostic evaluation on this patient on date of service 02/21/2025. History, labs, imaging studies, and electronic medical record have been reviewed by me. This note documented by the [x]housekeeping room inspector []ARMIN reflects my history, exam, and medical [...] RA Associated Order(s): IP CONSULT TO NEPHROLOGY [facility] [place] [address] [place], [place] [id number] Consult Note Patient's Name: Jun Snyder 10:[birth year] [...] 88.4 89.9 PLT 312 316 Recent Labs 02/20/25182402/21/253 NA 133* 131* K 3.1* 3.1* CL [...] bilateral pleural effusions. 5. Cholelithiasis, and diminutive wilton kidneys. Assessment and Plan: 59 y.o. male [...] any questions or concerns Bree Molina APRN WELLNESS NURSE RN A-G SAMPLE SHOE INSPECTOR AND REWORKER [facility] [place] [phone] Pt seen and examined independently by me. I reviewed with APPLICATIONS MANAGER-WELLNESS NURSE RN the medical history and the findings on physical examination. I discussed the patient s diagnosis and concur with the treatment plan as documented in his note. Please call [phone] or message me through Hybrent with any questions or concerns. [1] Past Medical History: Diagnosis Date Acute renal failure (ARF) ([facility]) 10/19/2019 Anemia 12/30/2021 Calcification of abdominal aorta ([facility]) 10/08/202309/[address] abd Diverticulosis 10/08/2023 ESRD on hemodialysis ([facility]) ([facility]) 10/26/2019 Hemodialysis patient ([facility]) ([facility]) HTN (hypertension) 12/01/2022 Hypertension IgA nephropathy IgA nephropathy determined by biopsy of kidney 10/26/2019 Missed vaccination due to patient refusal 10/08/2023 Has a number of non-scientific based beliefs which interfere with his understanding and acceptance of the medical benefit of vaccination. Nonrheumatic aortic valve stenosis 10/08/2023 Paroxysmal A-fib ([facility]) ([facility]) 08/18/2023 Tobacco abuse 10/08/2023 [2] Past Surgical History: Procedure Laterality Date APPENDECTOMY CARDIAC CATHETERIZATION N/A 10/09/2024 Performed by Bob Watson MD at [facility] Cardiac Cath/EP Lab CARDIAC CATHETERIZATION Bilateral 11/01/2024 Performed by Bob Watson MD at [facility] Cardiac Cath/EP Lab CARDIAC CATHETERIZATION N/A 11/01/2024 Performed by Bob Watson MD at [facility] Cardiac Cath/EP Lab COLONOSCOPY N/A 01/24/2025 Performed by Chadd Davis MD at [facility] [facility] FISTULAGRAM (HISTORICAL) Left 09/15/2021 LEFT UPPER ARM HX AV FISTULA CREATION IR EMBOLIZATION 10/14/2024 IR EMBOLIZATION 10/14/2024 [facility] SPECIAL PROCEDURES IR FISTULAGRAM 08/07/2022 IR FISTULAGRAM 08/07/2022 [facility] IR IMAGING TONSILLECTOMY (HISTORICAL) [3] Family History Problem Relation Name Age of Onset No Known Problems Mother No Known Problems Father documented in this encounter [facility] 02-23-2025 Telephone encount er Note Antonio, can we please schedule a 6-week CT scan for this patient and a follow-up appointment after this? Thank you [facility] 02-22-2025 Hospital Discharg elder Hurtado DO - 02/22/2025 2:54 PM EDT Images from the original note were not included. Continuity of Care Form Patient Name: Jun Snyder : 1965 Admit date: 02/20/2025 Discharge date: 03/05/2025 Code Status Order: Full Code Advance Directives: Y Admitting Physician: Bettye Pierre MD PCP: Leilani Troncoso Discharging Nurse: Discharging Hospital Unit/Room#: W6-334/W3334 A Discharging Unit Emergency Contact: Extended Emergency Contact Information Primary Emergency Contact: Omar Snyder Mobile Relation: Child Secondary Emergency Contact: Toma Mcneil Mobile Relation: Partner Past Surgical History: Past Surgical History: Procedure Laterality Date APPENDECTOMY CARDIAC CATHETERIZATION N/A 10/09/2024 Performed by Bob Watson MD at [facility] Cardiac Cath/EP Lab CARDIAC CATHETERIZATION Bilateral 11/01/2024 Performed by Bob Watson MD at [facility] Cardiac Cath/EP Lab CARDIAC CATHETERIZATION N/A 11/01/2024 Performed by Bob Watson MD at [facility] Cardiac Cath/EP Lab COLONOSCOPY N/A 01/24/2025 Performed by Chadd Davis MD at [facility] ENDOSCOPY FISTULAGRAM (HISTORICAL) Left 09/15/2021 LEFT UPPER ARM HX AV FISTULA CREATION IR EMBOLIZATION 10/14/2024 IR EMBOLIZATION 10/14/2024 [facility] SPECIAL PROCEDURES IR FISTULAGRAM 08/07/2022 IR FISTULAGRAM 08/07/2022 [facility] IR IMAGING TONSILLECTOMY (HISTORICAL) Immunization History: Immunization [...] to breakdown of skin (HCC) Tracheostomy dependence ([facility]) Leukocytosis Decubitus ulcer of sacral region, unstageable ([facility]) Pneumonia of both lungs due to methicillin susceptible Staphylococcus aureus (MSSA) ([facility]) Sacral osteomyelitis (CMS/HCC) ([facility]) Acute respiratory failure with hypoxia ([facility]) [J96.01] Tracheostomy care ([facility]) [Z43.0] Pulmonary embolism ([facility]) 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 Complication of tracheostomy (CMS/HCC) ([facility]) Anemia Aortic stenosis Upper GI bleed S/P AVR Acute hypoxic respiratory failure ([facility]) Acute encephalopathy Pneumoperitoneum BRBPR (bright red blood [...] Minimal assistance Toileting Minimal assistance Feeding Independent Check Out Clerk Minimal assistance Med Delivery yes Wound Care [...] 05 Drainage Description Unable to assess 02/21/25 0512 [...] Date: 02/20/25 Discharging to Facility/ Agency Name: [facility] Address: [address] [place] [id number] Dialysis Facility (if applicable) Name: Address: Dialysis Schedule: Phone: Fax: Orthotic Fitter/Principal Trainer signature: ICIAN SECTION Name: Jun Snyder Prognosis: [...] - 2mg 6/2 - 1.3 - 1.5mg / - 1.3 - 1 mg 02/24 - 1.3 - 1 mg The individual is being admitted to a nursing facility directly from an [facility] or a unit of a [facility] that is not operated by or licensed by [facility] under section 5119.14 or 5160-3-15.1 5 The individual requires the level of services provided by a nursing facility for the condition for which he or she was treated in the hospital and, Physician Certification: I certify the above information and transfer of Jun Snyder is necessary for the continuing treatment of the diagnosis listed and that he requires halfway facility for less than 30 days. Update [...] - 1 mg documented in this encounter [facility] 02-21-2025 Telephone encount er Note Name of caller: Padmini Contact phone number: [phone] Relationship to Patient: [facility] Provider: Mariano Practice: Infectious Disease Chief Complaint/Reason for Call: [facility] need a routine consult for this patient for Hemoptysis Cavitary lung lesion. Please advise Padmini Best time of day caller can be reached: any Patient advised that office/PCP has 24-48 business hours to return their call: Yes [facility] 02-21-2025 Miscellaneous Notes Formattin g of this note might be different from the original. Name of caller: Padmini Contact phone number: [phone] Relationship to Patient: [facility] Provider: Mariano Practice: Infectious Disease Chief Complaint/Reason for Call: [facility] need a routine consult for this patient for Hemoptysis Cavitary lung lesion. Please advise Padmini Best time of day caller can be reached: any Patient advised that office/PCP has 24-48 business hours to return their call: Yes documented in this encounter [facility] 02-21-2025 Note Referral placed to [facility] via [facility] per TCC request. Await review and response regarding ability to accept. [facility] notified. Electronically signed by [facility] Sabino [facility] 02-20-2025 History and physical note Attending History [...] bilateral pleural effusions. 5. Cholelithiasis, and diminutive wilton kidneys. Past Medical History: Past Medical History: Diagnosis Date Acute renal failure (ARF) ([facility]) 10/19/2019 Anemia 12/30/2021 Calcification of abdominal aorta (HCC) 10/08/202309/[address] abd Diverticulosis 10/08/2023 ESRD on hemodialysis ([facility]) ([facility]) 10/26/2019 Hemodialysis patient ([facility]) ([facility]) HTN (hypertension) 12/01/2022 Hypertension IgA nephropathy IgA nephropathy determined by biopsy of kidney 10/26/2019 Missed vaccination due to patient refusal 10/08/2023 Has a number of non-scientific based beliefs which interfere with his understanding and acceptance of the medical benefit of vaccination. Nonrheumatic aortic valve stenosis 10/08/2023 Paroxysmal A-fib ([facility]) ([facility]) 08/18/2023 Tobacco abuse 10/08/2023 Past Surgical History: [...] Patient Unable To Answer (12/01/2024) Received from [facility] Overall Financial Resource Strain (CARDIA) Difficulty of Paying Living Expenses: Patient unable to answer Food Insecurity: Patient Unable To Answer (12/01/2024) Received from [facility] Hunger Vital Sign Worried About Running [...] Concern Present (01/18/2025) Received from [facility] [place] of Occupational Health - Occupational Stress Questionnaire Feeling of Stress : Not at all Social Connections: Patient Unable To Answer (12/01/2024) Received from [facility] Social Connection and Isolation Panel [NHANES] Frequency of Communication with Friends and Family: Patient unable to answer Frequency of Social Gatherings with Friends and Family: Patient unable to answer Attends Druze Services: Patient unable to answer Active Member of Clubs or Organizations: Patient unable to answer Attends Club or Organization Meetings: Patient unable to answer Marital Status: Patient unable to answer Intimate Partner Violence: Patient Unable To Answer (11/28/2024) Received from [facility] Domestic Abuse Assessment Do you feel safe in your relationships at home?: Unable to assess Physical Abuse: Unable to assess [facility] Domestic Abuse - Type of Abuse: Not on file [facility] Domestic Abuse - Time Frame: Not on file [facility] Domestic Abuse - Signs and Symptoms: Not on file Verbal Abuse: Unable to assess [facility] Domestic Abuse - Reported To: Not [...] MD Division of Hospital Medicine Inpatient Medical Services/[facility] [1] Past Surgical History: Procedure Laterality Date APPENDECTOMY CARDIAC CATHETERIZATION N/A 10/09/2024 Performed by Bob Watson MD at [facility] Cardiac Cath/EP Lab CARDIAC CATHETERIZATION Bilateral 11/01/2024 Performed by Bob Watson MD at [facility] Cardiac Cath/EP Lab CARDIAC CATHETERIZATION N/A 11/01/2024 Performed by Bob Watson MD at [facility] Cardiac Cath/EP Lab COLONOSCOPY N/A 01/24/2025 Performed by Chadd Davis MD at [facility] ENDOSCOPY FISTULAGRAM (HISTORICAL) Left 09/15/2021 LEFT UPPER ARM HX AV FISTULA CREATION IR EMBOLIZATION 10/14/2024 IR EMBOLIZATION 10/14/2024 [facility] SPECIAL PROCEDURES IR FISTULAGRAM 08/07/2022 IR FISTULAGRAM 08/07/2022 [facility] IR IMAGING TONSILLECTOMY (HISTORICAL) [2] Family History Problem Relation Name Age of Onset No Known Problems Mother No Known Problems Father [3] Allergies Allergen Reactions Lisinopril Swelling and Angioedema documented in this encounter [facility] 02-20-2025 Note [facility] 02-20-2025 Emergency department Note Called report to [...] placed. Wound is being cared for by halfway facility where he resides EMERGENCY DEPARTMENT ENCOUNTER [...] was bright red and it stopped just 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 HISTORY OF PRESENT ILLNESS [...] CURRENT MEDICATIONS Previous Medications EPOETIN ROWAN-EPBX (RETACRIT) 41334 UNIT/ML INJECTION Inject 0.79 mL (7,900 Units) [...] Heart Rate Resp BP 02/20/25 1751 02/20/25 17502/20/25 17502/20/25 175 36.6 C (97.9 F) 86 [...] Physician EKG interpretation can be found in [facility] RADIOLOGY (Per Emergency Physician): Interpretation per the [...] bilateral pleural effusions. 5. Cholelithiasis, and diminutive wilton kidneys. Report Dictated on Electronically Signed By: [...] of hemoptysis, he will be admitted at [facility] under the hospitalist service in [...] History: Diagnosis Date Acute renal failure (ARF) ([facility]) 10/19/2019 Anemia 12/30/2021 Calcification of abdominal aorta ([facility]) 10/08/202309/[address] abd Diverticulosis 10/08/2023 ESRD on hemodialysis ([facility]) ([facility]) 10/26/2019 Hemodialysis patient ([facility]) ([facility]) HTN (hypertension) 12/01/2022 Hypertension IgA nephropathy IgA nephropathy determined by biopsy of kidney 10/26/2019 Missed vaccination due to patient refusal 10/08/2023 Has a number of non-scientific based beliefs which interfere with his understanding and acceptance of the medical benefit of vaccination. Nonrheumatic aortic valve stenosis 10/08/2023 Paroxysmal A-fib ([facility]) ([facility]) 08/18/2023 Tobacco abuse 10/08/2023 [2] Past Surgical History: Procedure Laterality Date APPENDECTOMY CARDIAC CATHETERIZATION N/A 10/09/2024 Performed by Bob Watson MD at [facility] Cardiac Cath/EP Lab CARDIAC CATHETERIZATION Bilateral 11/01/2024 Performed by Bob Watson MD at [facility] Cardiac Cath/EP Lab CARDIAC CATHETERIZATION N/A 11/01/2024 Performed by Bob Watson MD at [facility] Cardiac Cath/EP Lab COLONOSCOPY N/A 01/24/2025 Performed by Chadd Davis MD at [facility] ENDOSCOPY FISTULAGRAM (HISTORICAL) Left 09/15/2021 LEFT UPPER ARM HX AV FISTULA CREATION IR EMBOLIZATION 10/14/2024 IR EMBOLIZATION 10/14/2024 [facility] SPECIAL PROCEDURES IR FISTULAGRAM 08/07/2022 IR FISTULAGRAM [...] Patient Unable To Answer (12/01/2024) Received from [facility] Overall Financial Resource Strain (CARDIA) Difficulty of Paying Living Expenses: Patient unable to answer Food Insecurity: Patient Unable To Answer (12/01/2024) Received from [facility] Hunger Vital Sign Worried About Running [...] No Stress Concern Present (01/18/2025) Received from [facility] [place] of Occupational Health - Occupational Stress Questionnaire Feeling of Stress : Not at all Social Connections: Patient Unable To Answer (12/01/2024) Received from [facility] Social Connection and Isolation Panel [NHANES] Frequency of Communication with Friends and Family: Patient unable to answer Frequency of Social Gatherings with Friends and Family: Patient unable to answer Attends Druze Services: Patient unable to answer Active Member [...] Patient Unable To Answer (12/01/2024) Received from [facility] Medical Housing Stability Vital Sign Unable [...] was bright red and it stopped just 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 documented in this encounter [facility] 02-14-2025 History of Presen t illness Narrative Images from the original note were not included. [facility] Medical Group Infectious Diseases Advanced Practice Provider Outpatient Progress Note HISTORYOF PRESENT ILLNESS 59 yo male with PMHx significant for ESRD on HD via AVF, HTN, PAD who was admitted at [facility] (10/03/24-11/28/24) where he underwent AVR (10/12/24). Post-op [...] Pip-Tazo and Anidulafungin. Patient was discharged to [facility] on 11/28/24 where he was followed by our ID group for recurrent MSSA LRTI. He additionally had a sacral wound that was debrided to bone 01/02/25 (Sacral wound Cx + E faecalis, Clostridium clostridioforme). He was on a course of Amp-Sulbactam planned for 6 weeks through 02/13/25 [address] [facility] 01/18/25. Patient then presented to [facility] 01/19 after inadvertently self-dislodging tracheostomy. He was transferred to [facility] ICU for airway management and to determine if replacement tracheostomy was needed; decision was made to leave tracheostomy out. He was transferred to [facility] same day. 01/20 GI and critical care were consulted dt rectal bleeding. He was transferred back to ICU and had an EGD that showed non-bleeding duodenal ulcer. At that time sacral wound was also noted to be bleeding. Wound vac was applied. He continued on course of Amp-Sulbactam as planned through 02/13/25 and had tunneled line placed. Patient was discharged to [facility] 02/01/25. Patient presents today for EOT [...] Patient Unable To Answer (12/01/2024) Received from [facility] Overall Financial Resource Strain (CARDIA) Difficulty of Paying Living Expenses: Patient unable to answer Food Insecurity: Patient Unable To Answer (12/01/2024) Received from [facility] Hunger Vital Sign Worried About Running [...] No Stress Concern Present (01/18/2025) Received from [facility] [place] of Occupational Health - Occupational Stress Questionnaire Feeling of Stress : Not at all Social Connections: Patient Unable To Answer (12/01/2024) Received from [facility] Social Connection and Isolation Panel [NHANES] Frequency of Communication with Friends and Family: Patient unable to answer Frequency of Social Gatherings with Friends and Family: Patient unable to answer Attends Druze Services: Patient unable to answer Active Member of Clubs or Organizations: Patient unable to answer Attends Club or Organization Meetings: Patient unable to answer Marital Status: Patient unable to answer Intimate Partner Violence: Patient Unable To Answer (11/28/2024) Received from [facility] Medical Domestic Abuse Assessment Do you feel safe in your relationships at home?: Unable to assess Physical Abuse: Unable to assess [facility] Domestic Abuse - Type of Abuse: Not on file [facility] Domestic Abuse - Time Frame: Not on file [facility] Domestic Abuse - Signs and Symptoms: Not on file Verbal Abuse: Unable to assess [facility] Domestic Abuse - Reported To: Not on file Housing Stability: Patient Unable To Answer (12/01/2024) Received from [facility] Medical Housing Stability Vital Sign Unable [...] neg 01/22 Acinetobacter baumannii PCR: neg Previous ([facility]) 01/02- sacral wound cx- E faecalis (Amp-S), skin ila, Clostridium clostrioforme 01/01- blood cx- 2/2 NG 12/30- blood cx- 2/2 NGTD 12/30- sputum cx- MSSA, resp ila 12/25- blood cx- 2/2 negative 12/14- sputum cx- MSSA, resp ila 12/14- MRSA pcr- MSSA 12/11- sputum cx- MSSA, resp ila Previous ([facility]) 11/28- L pleural fluid- negative 11/16- abd [...] accounting for open encounter. Mikala MORAN PA-C [facility] Infectious Disease [1] Past Medical History: Diagnosis Date Acute renal failure (ARF) ([facility]) 10/19/2019 Anemia 12/30/2021 Calcification of abdominal aorta ([facility]) 10/08/202309/[address] abd Diverticulosis 10/08/2023 ESRD on hemodialysis ([facility]) ([facility]) 10/26/2019 Hemodialysis patient ([facility]) ([facility]) HTN (hypertension) 12/01/2022 Hypertension IgA nephropathy IgA nephropathy determined by biopsy of kidney 10/26/2019 Missed vaccination due to patient refusal 10/08/2023 Has a number of non-scientific based beliefs which interfere with his understanding and acceptance of the medical benefit of vaccination. Nonrheumatic aortic valve stenosis 10/08/2023 Paroxysmal A-fib ([facility]) ([facility]) 08/18/2023 Tobacco abuse 10/08/2023 [2] Family History Problem Relation Name Age of Onset No Known Problems Mother No Known Problems Father documented in this encounter [facility] 02-02-2025 History of Presen t illness Narrative Images from the original note were not included. Pt discharged to [facility] on 02/01/25. Updated tracker with hospital doses. Warfarin dosing instructions: 0.5 mg per day. New interacting meds: N/a Next SAILAJA appt: post SNF documented in this encounter [facility] 02-02-2025 History of Presen t illness Narrative Images from the original note were not included. Pt discharged to [facility] on 02/01/25. Updated tracker with hospital doses. Warfarin dosing instructions: 0.5 mg per day. New interacting meds: N/a Next SAILAJA appt: post SNF Patient is still at [facility] ([phone]). I left a message for ELIA Anderson, regarding discharge plans. documented in this encounter [facility] 02-02-2025 History of Presen t illness Narrative Images from the original note were not included. Pt discharged to [facility] on 02/01/25. Updated tracker with hospital doses. Warfarin dosing instructions: 0.5 mg per day. New interacting meds: N/a Next SAILAJA appt: post SNF Patient is still at [facility] ([phone]). I left a message for ELIA Anderson, [...] readmitted on 02/20 and discharged back to [facility] on 03/05. documented in this encounter [facility] 02-01-2025 Nurse Note Transport here to take patient to [facility]. Wound Vac tubing clamped and disconnected from wound vac. Facility will determine if tubing is compatible with their wound vacs. Wound Vac Dressing leaking with foam falling out. Dressing removed and W-D drsg applied. Patient Name: Jun Snyder Patient : 1965 Acct: [id number] Date of Admission: 01/19/2025 Room[facility]Bed: [facility] A Code Status: Full Code Allergies: Allergies Allergen Reactions Lisinopril Swelling and Angioedema Diagnosis: Patient Active Problem List Diagnosis Anemia Paroxysmal A-fib (CMS/HCC) (HCC) HTN (hypertension) ESRD on hemodialysis ([facility]) ([facility]) IgA nephropathy determined by biopsy of kidney Diverticulosis Nonrheumatic aortic valve stenosis Calcification of abdominal aorta (HCC) Missed vaccination due to patient refusal Tobacco abuse Alcohol use disorder in remission Atrial flutter, unspecified type (HCC) RSV (acute bronchiolitis due to respiratory syncytial virus) Aortic stenosis Upper GI bleed S/P AVR Acute hypoxic respiratory failure ([facility]) Acute encephalopathy Pneumoperitoneum Gastric ulceration Severe malnutrition [...] (CMS/HCC) (HCC) Acute respiratory failure with hypoxia ([facility]) [J96.01] Tracheostomy care ([facility]) [Z43.0] Pulmonary embolism ([facility]) 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 Complication of tracheostomy (CMS/HCC) ([facility]) BRBPR (bright red blood per rectum) Treatment: [...] Date of Last Dressing Change: N/A N/A , [address]?: N/A Red [...] 01/31/25 0400 -- -- -- -- Diminished Ecchymosis;[place];Mark Warm;Dry Flat;Gastrostomy tube Active 01/31/25 0801 Alert [...] 0010 CO2 27 01/31/2025 0010 BUN 15 01/31/20259 CREATININE 3.64 (H) 01/31/20259 CREATININE 9.99 (H) 10/27/201945 CALCIUM 10.0 01/31/20259 PHOS 4.6 01/31/20259 IV Drips and Rate/Dose sodium chloride, 20 mL/hr, Last Rate: 20 mL/hr (01/30/25 1838) Safety - Before each treatment: Dialysis Machine No.: [id number] RO Machine Number: [id number] Dialyzer Lot No.: [id number] Tubing Lot Number: [id number] All Connections Secure: Yes Venous Parameters Set: Yes Arterial Parameters Set: Yes NS Bag: Yes Saline Line Double Clamped: Yes Dialyzer: Nipro Prime Volume (mL): 200 mL RO Machine Number: [id number] RO Machine Log Sheet Completed: Yes Machine Alarm Self Test: Completed, Passed (722) (01/31/25742) Air Foam Detector: Tested, Proper Function, pH Reading Extracorporeal Circuit Tested for Integrity: Yes Machine Conductivity: 13.7 Manual Conductivity: 13.7 Manual Ph: 7 Bleach Test (Neg): Yes Bath Temperature: 36 C (96.8 F) Conductivity Meter Serial #: [id number] Machine Functioning Alarm Free? Yes Dialysis Bath: K+ (Potassium): 2 Ca+ (Calcium): 2.5 Na+ (Sodium): 137 HCO3 (Bicarb): 35 Bicarbonate Concentrate Lot No.: [id number] Acid Concentrate Lot No.: [id number] Chlorine Testing - Before each treatment and [...] Temp Temp src Pulse Resp SpO2 Weight 05/07/25 1121 130/70 -- -- 57 -- -- [...] to Education: Verbalized Understanding Patient arrived from [facility], Dr. Borrero in to speak [...] Name: Jun Snyder Patient : 1965 Acct: [id number] Date of Admission: 01/19/2025 Room[facility]Bed: [facility] A Code Status: Full Code [...] failure with hypoxia (HCC) [J96.01] Tracheostomy care ([facility]) [Z43.0] Pulmonary embolism (HCC) jail (current) use of antibiotics Complication of tracheostomy [...] 01/29/25 0800 -- -- -- -- Clear [place];Mark Warm;Dry Flat;Soft;Gastrostomy tube Active 01/29/25 0839 Alert (0) 3 Regular None (Room air) Clear [place] Warm;Dry;No swelling Soft Active 01/29/25 1210 Alert (0) 3 Regular None (Room air) Clear [place] -- -- -- Labs Lab Results Component Value Date/Time WBC 9.4 01/29/2025336 HGB 8.6 (L) 01/29/2025336 HGB 9.4 11/11/2024 0230 HCT 27.3 (L) 01/29/2025 033 PLT 271 01/29/2025 033 NA 134 (L) 01/29/2025 033 K 3.7 01/29/2025336 CL 94 (L) 01/29/2025336 CO2 23 01/29/2025336 BUN 21 01/29/2025336 CREATININE 4.17 (H) 01/29/2025 033 CREATININE 9.99 (H) 10/27/2019 0545 CALCIUM 9.8 01/29/2025336 PHOS 4.9 (H) 01/29/2025336 IV Drips and Rate/Dose sodium chloride, 20 mL/hr, Last Rate: 20 mL/hr (01/25/252003) Safety - Before each treatment: Dialysis Machine No.: [id number] RO Machine Number: [id number] Dialyzer Lot No.: [id number] Tubing Lot Number: [id number] All Connections Secure: Yes Venous Parameters Set: Yes Arterial Parameters Set: Yes NS Bag: Yes Saline Line Double Clamped: Yes Dialyzer: Nipro Prime Volume (mL): 200 mL RO Machine Number: [id number] RO Machine Log Sheet Completed: Yes Machine Alarm Self Test: Completed, Passed (01/29/25 0730) Air Foam Detector: Tested, Proper Function, pH Reading Extracorporeal Circuit Tested for Integrity: Yes Machine Conductivity: 13.8 Manual Conductivity: 13.8 Manual Ph: 7 Bleach Test (Neg): Yes Bath Temperature: 36 C (96.8 F) Conductivity Meter Serial #: [id number] Machine Functioning Alarm Free? Yes Dialysis Bath: K+ (Potassium): 3 Ca+ (Calcium): 2.5 Na+ (Sodium): 137 HCO3 (Bicarb): 35 Bicarbonate Concentrate Lot No.: [id number] Acid Concentrate Lot No.: [id number] Chlorine Testing - Before each treatment and [...] 210 mmHg 100 600 Yes Pt stable [id number]. Pt stable , sleeping 01/29/25 1018 400 [...] be restarted at 9 un/kg/hr,) Provider Name: Keyursarojjimbo Provider Role: Resident Method of Communication: Secure [...] lopressor. Report called to Ana Laura in [facility] Multiple attempts to help patient get comfortable. [...] Name: Jun Snyder Patient : 1965 Acct: [id number] Date of Admission: 01/19/2025 Room/Bed: T3-321/T3-321 A Code Status: Full Code Allergies: Allergies Allergen Reactions Lisinopril Swelling and Angioedema Diagnosis: Patient Active Problem List Diagnosis Anemia Paroxysmal A-fib (CMS/HCC) (HCC) HTN (hypertension) ESRD on hemodialysis (CMS/HCC) ([facility]) IgA nephropathy determined by biopsy of kidney Diverticulosis Nonrheumatic aortic valve stenosis Calcification of abdominal aorta (HCC) Missed vaccination due to patient refusal Tobacco abuse Alcohol use disorder in remission Atrial flutter, unspecified type ([facility]) RSV (acute bronchiolitis due to respiratory syncytial [...] failure with hypoxia (HCC) [J96.01] Tracheostomy care ([facility]) [Z43.0] Pulmonary embolism (HCC) jail (current) use of antibiotics Complication of tracheostomy (CMS/HCC) ([facility]) BRBPR (bright red blood per rectum) Treatment: [...] 11/11/2024229 HCT 28.4 (L) 01/26/2025951 PLT 265 01/26/20258 NA 136 01/26/20258 K 5.1 01/26/2025247 CL 100 01/26/2025247 CO2 20 (L) 01/26/2025247 BUN 19 01/26/2025247 CREATININE 3.37 (H) 01/26/2025247 CREATININE 9.99 (H) 10/27/201945 CALCIUM 9.0 01/26/2025247 PHOS 5.3 (H) 01/26/2025247 IV Drips and Rate/Dose heparin, 5-30 Units/kg/hr, Last Rate: 7 Units/kg/hr (01/26/25 1219) sodium chloride, 20 mL/hr, Last Rate: 20 mL/hr (01/25/252003) Safety - Before each treatment: Dialysis Machine No.: [id number] Machine Number: [id number] Dialyzer Lot No.: [id number] Tubing Lot Number: [id number] All Connections Secure: Yes Venous Parameters Set: Yes Arterial Parameters Set: Yes NS Bag: Yes Saline Line Double Clamped: Yes Dialyzer: Nipro Prime Volume (mL): 200 mL RO Machine Number: [id number] RO Machine Log Sheet Completed: Yes Machine Alarm Self Test: Completed, Passed (1226) (01/26/25 1226) Air Foam Detector: Tested, Proper Function, pH Reading Extracorporeal Circuit Tested for Integrity: Yes Machine Conductivity: 13.9 Manual Conductivity: 14 Manual Ph: 7.4 Bleach Test (Neg): Yes Bath Temperature: 36 C (96.8 F) Conductivity Meter Serial #: [id number] Machine Functioning Alarm Free? Yes Dialysis Bath: K+ (Potassium): 2 Ca+ (Calcium): 2.5 Na+ (Sodium): 137 HCO3 (Bicarb): 35 Bicarbonate Concentrate Lot No.: [id number] Acid Concentrate Lot No.: [id number] Chlorine Testing - Before each treatment and [...] -- -- -- -- tx completed, UF [id number] Vital Signs Patient Vitals for the past [...] Name: Jun Snyder Patient : 1965 Acct: [id number] Date of Admission: 01/19/2025 Room/Bed: T3-321/T3-321 A Code Status: Full Code Allergies: Allergies Allergen Reactions Lisinopril Swelling and Angioedema Diagnosis: Patient Active Problem List Diagnosis Anemia Paroxysmal A-fib ([facility]) ([facility]) HTN (hypertension) ESRD on hemodialysis ([facility]) ([facility]) IgA nephropathy determined by biopsy of kidney Diverticulosis Nonrheumatic aortic valve stenosis Calcification of abdominal aorta ([facility]) Missed vaccination due to patient refusal Tobacco abuse Alcohol use disorder in remission Atrial flutter, unspecified type ([facility]) RSV (acute bronchiolitis due to respiratory syncytial virus) Aortic stenosis Upper GI bleed S/P AVR Acute hypoxic respiratory failure ([facility]) Acute encephalopathy Pneumoperitoneum Gastric ulceration Severe malnutrition ([facility]) ([facility]) Pleural effusion Peritonitis due to fungus ([facility]) History of abdominal surgery Leg DVT (deep venous thromboembolism), acute, left ([facility]) Ischemic ulcer of toe of left foot, limited to breakdown of skin ([facility]) Tracheostomy dependence ([facility]) Leukocytosis Decubitus ulcer of sacral region, unstageable ([facility]) Pneumonia of both lungs due to methicillin susceptible Staphylococcus aureus (MSSA) ([facility]) Sacral osteomyelitis ([facility]) ([facility]) Acute respiratory failure with hypoxia ([facility]) [J96.01] Tracheostomy care ([facility]) [Z43.0] Pulmonary embolism ([facility]) jail (current) use of antibiotics Complication of tracheostomy ([facility]) ([facility]) BRBPR (bright red blood per rectum) Treatment: [...] - Before each treatment: Dialysis Machine No.: [id number] RO Machine Number: [id number] Dialyzer Lot No.: [id number] Tubing Lot Number: [id number] All Connections Secure: Yes Venous Parameters Set: Yes Arterial Parameters Set: Yes NS Bag: Yes Saline Line Double Clamped: Yes Dialyzer: Nipro Prime Volume (mL): 200 mL RO Machine Number: [id number] RO Machine Log Sheet Completed: Yes Machine Alarm Self Test: Completed, Passed (test passed at 09) (01/24/25924) Air Foam Detector: Tested, Proper Function, pH Reading Extracorporeal Circuit Tested for Integrity: Yes Machine Conductivity: 13.8 Manual Conductivity: 13.8 Manual Ph: 7.2 Bleach Test (Neg): Yes (water check negative at 0910) Bath Temperature: 36 C (96.8 F) Conductivity Meter Serial #: [id number] Machine Functioning Alarm Free? Yes Dialysis Bath: K+ (Potassium): 3 Ca+ (Calcium): 2.5 Na+ (Sodium): 137 HCO3 (Bicarb): 35 Bicarbonate Concentrate Lot No.: [id number] Acid Concentrate Lot No.: [id number] Chlorine Testing - Before each treatment and [...] (mmHg) TMP DFR Access Visible Intra-Hemodialysis Comments 04/30/25 0930 400 mL/min 550 ml/hr -20 mmHg [...] -- -- 96 (!) 27 100 % 04/30/25 1016 111/59 -- -- 86 12 96 [...] Name: Jun Snyder Patient : 1965 Acct: [id number] Date of Admission: 01/19/2025 Room/Bed: T3321/[facility] A Code Status: Full Code Allergies: Allergies Allergen Reactions Lisinopril Swelling and Angioedema Diagnosis: Patient Active Problem List Diagnosis Anemia Paroxysmal A-fib ([facility]/HCC) (HCC) HTN (hypertension) ESRD on hemodialysis ([facility]) ([facility]) IgA nephropathy determined by biopsy of kidney [...] failure with hypoxia (HCC) [J96.01] Tracheostomy care ([facility]) [Z43.0] Pulmonary embolism (HCC) 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 Complication of tracheostomy (CMS/HCC) ([facility]) Treatment: Hemodialysis 1:1 Priority: Routine Location: ICU Diabetic: No NPO: Yes Isolation Precautions: Contact Consent for Treatment Verified: Yes Blood Consent Verified: Not Applicable ICEBOAT: Identify, Consent, Equipment, HepB Status, Orders Complete, Access Verified, Timeliness Second Clinician Verifying: Robbie Johnson RN Time out performed prior to access [...] 25.1 (L) 01/22/2025 041 PLT 330 01/22/2025 041 NA 132 (L) 01/22/2025418 K 4.4 01/22/2025418 CL 94 (L) 01/22/2025 041 CO2 25 01/22/2025 041 BUN 53 (H) 01/22/2025418 CREATININE 4.18 (H) 01/22/2025 041 CREATININE 9.99 (H) 10/27/2019 0545 CALCIUM 9.8 01/22/2025418 PHOS 6.8 (H) 01/22/2025418 IV Drips and Rate/Dose Safety - Before each treatment: Dialysis Machine No.: [id number] Machine Number: [id number] Dialyzer Lot No.: [id number] Tubing Lot Number: [id number] All Connections Secure: Yes Venous Parameters Set: Yes Arterial Parameters Set: Yes NS Bag: Yes Saline Line Double Clamped: Yes Dialyzer: Nipro Prime Volume (mL): 250 mL RO Machine Number: [id number] RO Machine Log Sheet Completed: Yes Machine Alarm Self Test: Completed, Passed (01/22/25850) Air Foam Detector: Tested, Proper Function, pH Reading Extracorporeal Circuit Tested for Integrity: Yes Machine Conductivity: (13.8) Manual Conductivity: 14 Manual Ph: 7.2 Bleach Test (Neg): Yes Bath Temperature: 36 C (96.8 F) Conductivity Meter Serial #: [id number] Machine Functioning Alarm Free? Yes Dialysis Bath: K+ (Potassium): 2 Ca+ (Calcium): 2.5 Na+ (Sodium): 137 HCO3 (Bicarb): 35 Bicarbonate Concentrate Lot No.: [id number] Acid Concentrate Lot No.: [id number] Chlorine Testing - Before each treatment and [...] BP Temp Temp src Pulse Resp SpO2 04/28/25 1215 111/60 37.3 C (99.2 F) -- [...] Name: Jun Snyder Patient : 1965 Acct: [id number] Date of Admission: 01/19/2025 [facility] A Code Status: Full Code Allergies: Allergies Allergen Reactions Lisinopril Swelling and Angioedema Diagnosis: Patient Active Problem List Diagnosis Anemia Paroxysmal A-fib ([facility]) (HCC) HTN (hypertension) ESRD on hemodialysis ([facility]) ([facility]) IgA nephropathy determined by biopsy of kidney Diverticulosis Nonrheumatic aortic valve stenosis Calcification of abdominal aorta (HCC) Missed vaccination due to patient refusal Tobacco abuse Alcohol use disorder in remission Atrial flutter, unspecified type (HCC) RSV (acute bronchiolitis due to respiratory syncytial virus) Aortic stenosis Upper GI bleed S/P AVR Acute hypoxic respiratory failure ([facility]) Acute encephalopathy Pneumoperitoneum Gastric ulceration Severe malnutrition ([facility]) ([facility]) Pleural effusion Peritonitis due to fungus (HCC) History of abdominal surgery Leg DVT (deep venous thromboembolism), acute, left ([facility]) Ischemic ulcer of toe of left foot, 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) Tracheostomy dependence ([facility]) Leukocytosis Decubitus ulcer of sacral region, unstageable ([facility]) Pneumonia of both lungs due to methicillin susceptible Staphylococcus aureus (MSSA) ([facility]) Sacral osteomyelitis ([facility]) ([facility]) Acute respiratory failure with hypoxia ([facility]) [J96.01] Tracheostomy care ([facility]) [Z43.0] Pulmonary embolism ([facility]) jail (current) use of antibiotics Complication of tracheostomy ([facility]) ([facility]) Treatment: Hemodialysis 1:1 Priority: Routine Location: Bedside Diabetic: Yes NPO: Yes Isolation Precautions: Contact Consent for Treatment Verified: Yes Blood Consent Verified: Not Applicable ICEBOAT: Identify, Consent, Equipment, HepB Status, Orders Complete, Access Verified, Timeliness Second Clinician Verifying: Robbie Johnson RN Time out performed prior to access at 1015. Report Received from Primary RN at 0900. Primary RN (First Initial, Last Name, Title): Robbie Johnson RN Incapacitated Nurse Education Completed: Yes P.K. [...] K 4.8 01/20/2025 0514 CL 98 01/20/2025 05 CO2 22 01/20/2025 0514 BUN 91 (H) 01/20/2025 05 CREATININE 4.31 (H) 01/20/2025 05 CREATININE 9.99 (H) 10/27/2019 0545 CALCIUM 9.2 01/20/2025513 PHOS 6.1 (H) 01/20/2025 0514 IV Drips and Rate/Dose pantoprazole (ProtoNix) 80 mg in sodium chloride 0.9 % 100 mL (0.8 mg/mL) infusion, 8 mg/hr Safety - Before each treatment: Dialysis Machine No.: [id number] RO Machine Number: [id number] Dialyzer Lot No.: [id number] Tubing Lot Number: [id number] All Connections Secure: Yes Venous Parameters Set: Yes Arterial Parameters Set: Yes NS Bag: Yes Saline Line Double Clamped: Yes Dialyzer: Nipro Prime Volume (mL): 200 mL RO Machine Number: [id number] RO Machine Log Sheet Completed: Yes Machine Alarm Self Test: Completed, Passed (1000) (01/20/25 1000) Air Foam Detector: Tested, Proper Function, pH Reading Extracorporeal Circuit Tested for Integrity: Yes Machine Conductivity: 13.6 Manual Conductivity: 13.8 Manual Ph: 7.2 Bleach Test (Neg): Yes Bath Temperature: 36 C (96.8 F) Conductivity Meter Serial #: [id number] Machine Functioning Alarm Free? Yes Dialysis Bath: K+ (Potassium): 2 Ca+ (Calcium): 2.5 Na+ (Sodium): 137 HCO3 (Bicarb): 35 Bicarbonate Concentrate Lot No.: [id number] Acid Concentrate Lot No.: [id number] Chlorine Testing - Before each treatment and [...] -- 87 -- -- 01/20/25 1150 (!) 89/52 -- -- 91 -- -- 01/20/25 1145 (!) /30 -- -- 95 -- -- 01/20/25 1130 91/55 -- -- 115 -- -- 01/20/25 1115 (!) 89/60 -- -- 91 -- -- 01/20/25 1100 [...] (97.3 F) Temporal 78 20 94 % 01/19/25 2001 95/61 -- -- -- -- -- 01/19/251999 [...] lab value (Hgb 6.6) Provider Name: LEONA tongue and groove machine feeder ATT Provider Role: Attending physician Method of Communication: Secure chat Response: Waiting for response Notification Date: 01/20/25 Notification Time: 619 Reason for Communication: Critical lab value (Hgb 6.6) Provider Role: Attending physician Method of Communication: Secure chat Response: Waiting for response Notification Time: 20 Handoff complete and report given to Primary RN at 1320. Primary RN (First Initial, Last Name, Title): Bell Avalos RN Education Person Educated: Patient Knowledge Base: Substantial Barriers to Learning?: None Preferred method of Learning: Oral Topic(s): Access Care, Signs and Symptoms of Infection, Fluid Management, Procedural, and Diet Teaching Tools: Explanation Response to Education: Verbalized Understanding documented in this encounter [facility] 02-01-2025 Miscellaneous Notes Formattin g of this note might be different from the original. 7000 created in [facility] per TCC request. Facility notified via [facility]. Authorization approved for the [facility] through 02/02/25, discharge orders placed, ROSENDO completed. Transportation placed and confirmed for today 02/01/25 at 330pm to the [facility], physician/patient/supply chain vice president/RN aware. GIS GEOGRAPHER tasked to send 7000 and DC summary. Hep B panels, 3 days of HD flowsheets, MAR and [facility] Call placed to the [facility] to confirm able to still take patient [...] Nutrition Support Outcome: Progressing Updates placed to [facility] - [facility] [place] via [facility] per TCC request. Await review [...] Nutrition Support Outcome: Progressing Message sent to Orchestra Director to start [facility] for [facility]. Problem: Pain - Adult Goal: Verbalizes/displays [...] order to start auth to return to [facility] per previous TCC note of plan. [...] Improved Outcome: Progressing Updates placed to [facility] per TCC request. Await review and response regarding ability to accept. TCC notified. Tasked [facility] to send updates to [facility], per their request. Warfarin bridging per MD notes, patient will need NEW auth for return to [facility]. Problem: Pain - Adult Goal: Verbalizes/displays [...] Outcome: Progressing [facility] per TCC request. Care Management Progress Note PCU transfer pending. Received one unit PRBC this AM for low Hgb. HD today. Heparin drip ongoing. IVAB (plan for 6 week course). Wound vac to sacral wound. Room Air. Dysphagia diet; pureed. DC plan - [facility]. Facility updated via careport. GIS GEOGRAPHER asked to send dialysis note per their [...] - Payne indicated: N/A OPAT placed to [facility] via [facility] per TCC request. 01/25/25 1047 Rapid Rounds Attendance Orthotic Fitter Planned Discharge Disposition SNF Today we still await Administering IV medications;Supervisor [employer] recommendations (comment);Clinical stability;Symptomatic control;Post-discharge arrangement completion (comment) Patient remains on MICU. S/P colonoscopy 01/24-negative for active bleeding. Heparin drip resumed post procedure. Wound vac to sacral wound; IVAB till 02/13; OPAT under chart review > media. Plan for MBSS. Room Air. DC plan - [facility] when medically appropriate. CM will continue [...] Goal: Nutrition Support Outcome: Progressing [facility] Patient Name: Jun Snyder Procedure Date: 01/24/2025 12:37 PM Gender: Male Date of : 1965 Age: 59 Admit Type: Inpatient Note Status: Finalized Endoscopist: Chadd Davis MD, [id number] Procedure: Colonoscopy Indications: Evaluation of unexplained GI [...] by the physician, the nurse and the client application support engineer in the pre-procedure area in the procedure [...] anticoagulant use Procedure Code(s): --- Professional --- 03446, Colonoscopy, flexible; diagnostic, including collection of specimen(s) by brushing or washing, when performed (separate procedure) --- Technical --- 33749, Colonoscopy, flexible; diagnostic, including collection of specimen(s) by brushing or washing, when performed (separate procedure) Diagnosis Code(s): --- Professional --- K64.0, First degree hemorrhoids K92.1, Melena (includes Hematochezia) Z79.01, 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 K57.30, Diverticulosis of large intestine without perforation or abscess without bleeding --- Technical --- K64.0, First degree hemorrhoids K92.1, Melena (includes Hematochezia) Z79.01, 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 K57.30, Diverticulosis of large intestine without perforation or abscess without bleeding CPT copyright 2021 [employer]. All rights reserved. The codes documented in this report are preliminary and upon pipe out worker review may be revised to meet current [...] Early Mobility/Exercise Safety Screen: Activity: Bed mobility -[facility] Score: Lying in bed LDAs Peripheral IV 01/19/25 Right Forearm (Active) Number of days: 4 Peripheral IV 01/23/25 Anterior;Distal;Right Forearm (Active) Number of days: 0 Enterostomy Gastric 20 Fr. LUQ (Active) Number of days: 70 - Central Line indicated: N/A - Payne indicated: N/A Problem: Pain - Adult Goal: Verbalizes/displays adequate comfort level or baseline comfort level Outcome: Progressing Flowsheets (Taken 01/24/2025 07) Verbalizes/displays adequate comfort level or baseline comfort [...] Note: Diagnosis: Principal Problem: Complication of tracheostomy ([facility]) ([facility]) Active Problems: Severe malnutrition ([facility]) ([facility]) Chief Complaint: Jun Snyder is a 59 [...] care team, reviewed Health Care Power of Digital Communications Manager (HCPOA) with patient. Patient agreeable to complete [...] secondary agent. DC plan - return to [facility]. CM will continue to follow Length of Stay (Days): 1 GMLOS: 4.5 Images from the original note were not included. [facility] Palliative Care Transitions of Care Note Jun Snyder : 1965 ADMIT DATE: 01/19/2025 DISCHARGE DATE: TBD PRIMARY CARE PHYSICIAN: Leilani Troncoso CODE STATUS: Full Code DISCHARGE DIAGNOSES: Principal Problem: Complication of tracheostomy (CMS/HCC) ([facility]) Active Problems: Severe malnutrition (CMS/HCC) ([facility]) BRBPR (bright red blood per rectum) HOSPITAL [...] to have bile peritonitis" 11/28/24: transferred to [facility] He ended up developing sacral ulcer and osteomyelitis at [facility]. He then ended up dislodging his tracheostomy, and was brought to [facility] ED for further care. Palliative care consulted for goals of care. Goals of care - Patient has capacity to make medical decisions - legal surrogate decision maker HCPOA Omar, 1st alternate is significant other Toma - goals of care include: 1) to continue current management, continue with aggressive medical therapy, procedures, antibiotics at this time - [facility] - will forward chart to [...] AV replacement Supratherapeutic INR - [facility] [employer] valve in 09/2024 - coumadin held due to bleeding and supratherapeutic levels Chronic respiratory failure s/p tracheostomy Tracheostomy dislodgement - has been saturating well without trach on RA so has not been replaced FOLLOW UP TESTING, PENDING RESULTS OR REFERRALS AT TRANSITIONAL CARE VISIT: No DISPOSITION: Skilled Rehab Facility [facility] Follow up with [facility] Care on patient [...] Safety: The patient was placed on a residential monitor and vital signs, pulse oximetry, and [...] as signed by this procedure note. [facility] Patient Name: Jun Snyder Procedure Date: 01/21/2025 9:59 AM Gender: Male Date of : 1965 Age: 59 Admit Type: Inpatient Note Status: Finalized Endoscopist: ELDON Alba MD, [id number] Procedure: Upper GI endoscopy Indications: Acute post [...] by the physician, the nurse and the client application support engineer in the pre-procedure area in the procedure [...] loss: None. Procedure Code(s): --- Professional --- 78672, Esophagogastroduodenoscopy, flexible, transoral; diagnostic, including collection of specimen(s) by brushing or washing, when performed (separate procedure) --- Technical --- 91322, Esophagogastroduodenoscopy, flexible, transoral; diagnostic, including collection of [...] D62, Acute posthemorrhagic anemia CPT copyright 2021 [employer]. All rights reserved. The codes documented in this report are preliminary and upon pipe out worker review may be revised to meet current [...] Care Plan Patient was transferred over from [facility] after self-dislodged tracheostomy this morning around 0600. [...] and treatment plans Return referral placed to [facility] per [facility] request. Await review and response regarding ability to accept. TCC notified. 01/19/25 1300 Rapid Rounds Attendance Orthotic Fitter Planned Discharge Disposition SNF Today we still await Clinical stability;Supervisor [employer] recommendations (comment);Symptomatic control;Post-discharge arrangement completion (comment) Patient admitted due to trach dislodgement. Patient was discharged from [facility] to the [facility]; there only a matter of hours per [...] He would like patient to return to [facility] SNF is able at DC. Does not want patient to return to [facility]. GIS GEOGRAPHER asked to place referral to [facility]. CM will continue to follow for DC [...] improved Outcome: Progressing documented in this encounter [facility] 02-01-2025 History of Presen t illness Narrative Images from the original note were not included. [facility] - Infectious Diseases [...] cx- MSSA, resp ila 11/01- blood cx- 2/ negative 10/25- H pylori ag- negative 10/19- [...] mildly when compared to the previous study. 5/1 MBS No vocal cord penetration or airway [...] of use of antimicrobials. Mikala MORAN PA-C [facility] Infectious Disease Nephrology Progress Note [...] not included. Speech-Language Pathology SPEECH LANGUAGE PATHOLOGY [facility] Dysphagia Treatment Note Patient Name: Jun Snyder [...] strategies. Plan & Recommendations Plan: Continue acute AUTOMOBILE REPAIR SERVICE ESTIMATOR therapy per initial plan of care and [...] Expected End: 02/02/25 Resolved: 01/25/25 Therapy Time AUTOMOBILE REPAIR SERVICE ESTIMATOR Individual Minutes Time In: 816 Time Out: 829 Minutes: 13 Khadijah Carranza CCC-AUTOMOBILE REPAIR SERVICE ESTIMATOR Hospitalist Progress Note Subjective: Admit Date: 01/19/2025 PCP: Leilani Troncoso Room#: 1C-144/1C-144 A Chief Complaint Patient presents with Tracheostomy Tube Change Brief Hospital course: Jun Snyder is a 59 y.o. male who who presented to [facility] 01/19 after inadvertent removal of his tracheostomy. He was transferred to [facility] ICU for surgical evaluation. On arrival he [...] HD successfully. hemodynamically stable. Transferred out to [facility] 01/27 ID following for sacral osteomyelitis, s/p wound debridement to bone on 01/02, cultures grew E faecalis and Clostridium, continue with renally dosed ampicillin sulbactam for 6 weeks course through 02/13/2025, needs tunneled line, status post IR CVC tunneled line on 01/29 Nephrology following, on dialysis AUTOMOBILE REPAIR SERVICE ESTIMATOR following PT/OT recommends SNF Patient will be [...] History: Diagnosis Date Acute renal failure (ARF) ([facility]) 10/19/2019 Anemia 12/30/2021 Calcification of abdominal aorta (HCC) 10/08/202309/[address] abd Diverticulosis 10/08/2023 ESRD on hemodialysis ([facility]) ([facility]) 10/26/2019 Hemodialysis patient ([facility]) ([facility]) HTN (hypertension) 12/01/2022 Hypertension IgA nephropathy IgA nephropathy determined by biopsy of kidney 10/26/2019 Missed vaccination due to patient refusal 10/08/2023 Has a number of non-scientific based beliefs which interfere with his understanding and acceptance of the medical benefit of vaccination. Nonrheumatic aortic valve stenosis 10/08/2023 Paroxysmal A-fib ([facility]) ([facility]) 08/18/2023 Tobacco abuse 10/08/2023 Adult diet Dysphagia [...] Recent Labs 01/30/25 0047 01/31/25 0010 02/01/25 011 NA 135* 138 136 K 3.7 4.3 3.7 CL 99 99 99 CO2 23 27 26 BUN 10 15 7* CREATININE 2.56* 3.64* 2.39* GLUCOSE 88 87 87 CALCIUM 9.6 10.0 9.7 ANIONGAP 13 12 11 LIVER PROFILE: Recent Labs 01/31/250 02/01/25 011 AST 31 32 ALT 11 [...] 20 mL/hr, Last Rate: 20 mL/hr (01/30/25 3058) Assessment Data: (CAT1) Reviewed 2 notes from [...] by ID -S/p tunneled central line placement -AUTOMOBILE REPAIR SERVICE ESTIMATOR follow, dysphagia diet -PT OT DC recommend [...] MD Division of Hospital Medicine Inpatient Medical Services/[facility] ([facility]) Inpatient Warfarin Consult HPI: Jun Snyder is a 59 y.o. male admitted on 01/19/2025 for Complication of tracheostomy ([facility]) ([facility]) [J95.00] Past Medical History: Diagnosis Date Acute renal failure (ARF) ([facility]) 10/19/2019 Anemia 12/30/2021 Calcification of abdominal aorta ([facility]) 10/08/202309/[address] abd Diverticulosis 10/08/2023 ESRD on hemodialysis ([facility]) ([facility]) 10/26/2019 Hemodialysis patient ([facility]) ([facility]) HTN (hypertension) 12/01/2022 Hypertension IgA nephropathy IgA nephropathy determined by biopsy of kidney 10/26/2019 Missed vaccination due to patient refusal 10/08/2023 Has a number of non-scientific based beliefs which interfere with his understanding and acceptance of the medical benefit of vaccination. Nonrheumatic aortic valve stenosis 10/08/2023 Paroxysmal A-fib ([facility]) ([facility]) 08/18/2023 Tobacco abuse 10/08/2023 Patient is on [...] 02/01/25 0114 INR 2.0* Date INR Dose 8 2.0 0.5mg 5/7 2.2 0.5mg 5/6 2.5 HOLD 5/5 2.4 Held 5/4 2.2 0.5mg 5/3 1.9 1mg 5/2 1.8 1 mg 5/1 1.7 0.5 mg 4/30 1.5 1mg 01/23 2.0 HOLD 01/22 8.1/3.1 HOLD vitamin K 2.5mg PO 01/21 7.9 Held 01/20 --- Held 01/19 2.7 HOLD Assessment/Plan: 1. INR is therapeutic. Pt has been very sensitive to warfarin so continue low dose of 0.5mg again today 2. Monitor for s/s of bleeding and drug interactions. Will adjust dose accordingly 3. Will facilitate f/u at [facility] upon discharge Tiffanie Dial RPh [facility] is available daily [phone] via alooma. If no response on Hybrent Chat then please page [phone]. Images from the original note were not included. OCCUPATIONAL THERAPY [facility] Re-Evaluation Name/MRN: Jair Snyder ([id number]) Evaluation Date: 01/31/2025 Date of : 1965 Admission Date: 01/19/2025 2:13 AM Age: 59 y.o. Room/Bed: 1C-144/1C-144 A Discharge Recommendation: Detention Facility Other: DME [...] History: Diagnosis Date Acute renal failure (ARF) ([facility]) 10/19/2019 Anemia 12/30/2021 Calcification of abdominal aorta ([facility]) 10/08/202309/[address] abd Diverticulosis 10/08/2023 ESRD on hemodialysis ([facility]/H[facility]) ([facility]) 10/26/2019 Hemodialysis patient ([facility]) ([facility]) HTN (hypertension) 12/01/2022 Hypertension IgA nephropathy IgA nephropathy determined by biopsy of kidney 10/26/2019 Missed vaccination due to patient refusal 10/08/2023 Has a number of non-scientific based beliefs which interfere with his understanding and acceptance of the medical benefit of vaccination. Nonrheumatic aortic valve stenosis 10/08/2023 Paroxysmal A-fib ([facility]) ([facility]) 08/18/2023 Tobacco abuse 10/08/2023 Past Surgical History: Past Surgical History: Procedure Laterality Date APPENDECTOMY CARDIAC CATHETERIZATION N/A 10/09/2024 Performed by Bob Watson MD at [facility] Cardiac Cath/EP Lab CARDIAC CATHETERIZATION Bilateral 11/01/2024 Performed by Bob Watson MD at [facility] Cardiac Cath/EP Lab CARDIAC CATHETERIZATION N/A 11/01/2024 Performed by Bob Watson MD at [facility] Cardiac Cath/EP Lab COLONOSCOPY N/A 01/24/2025 Performed by Chadd Davis MD at [facility] ENDOSCOPY FISTULAGRAM (HISTORICAL) Left 09/15/2021 LEFT UPPER ARM HX AV FISTULA CREATION IR EMBOLIZATION 10/14/2024 IR EMBOLIZATION 10/14/2024 [facility] SPECIAL PROCEDURES IR FISTULAGRAM 08/07/2022 IR FISTULAGRAM 08/07/2022 [facility] IR IMAGING TONSILLECTOMY (HISTORICAL) Admission Diagnosis: Patient Active Problem List Diagnosis Date Noted Severe malnutrition ([facility]) ([facility]) 01/19/2025 Complication of tracheostomy ([facility]) ([facility]) 01/19/2025 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 01/12/2025 Acute respiratory failure with hypoxia ([facility]) [J96.01] 01/08/2025 Tracheostomy care ([facility]) [Z43.0] 01/08/2025 Pulmonary embolism ([facility]) 01/08/2025 Sacral osteomyelitis ([facility]) ([facility]) 01/03/2025 Pneumonia of both lungs due to methicillin susceptible Staphylococcus aureus (MSSA) ([facility]) 01/01/2025 Leukocytosis 12/30/2024 Decubitus ulcer of sacral region, unstageable ([facility]) 12/30/2024 Peritonitis due to fungus ([facility]) 11/30/2024 History of abdominal surgery 11/30/2024 Leg DVT (deep venous thromboembolism), acute, left ([facility]) 11/30/2024 Ischemic ulcer of toe of left foot, limited to breakdown of skin ([facility]) 11/30/2024 Tracheostomy dependence ([facility]) 11/30/2024 Pleural effusion 11/28/2024 Gastric ulceration 2024 Atrial flutter, unspecified type ([facility]) 10/03/2024 RSV (acute bronchiolitis due to respiratory syncytial virus) 10/03/2024 Diverticulosis 10/08/2023 Nonrheumatic aortic valve stenosis 10/08/2023 Calcification of abdominal aorta ([facility]) 10/08/2023 Missed vaccination due to patient refusal 10/08/2023 Tobacco abuse 10/08/2023 Alcohol use disorder in remission 10/08/2023 Paroxysmal A-fib ([facility]) ([facility]) 08/18/2023 HTN (hypertension) 12/01/2022 ESRD on hemodialysis ([facility]) ([facility]) 10/26/2019 IgA nephropathy determined by biopsy of kidney 10/26/2019 BRBPR (bright red blood per rectum) 01/19/2025 Aortic stenosis 10/03/2024 Upper GI bleed 10/03/2024 S/P AVR 10/03/2024 Acute hypoxic respiratory failure ([facility]) 10/03/2024 Acute encephalopathy 10/03/2024 Pneumoperitoneum 10/03/2024 Anemia [...] Daily Activity Raw Score: 12 ADL Inpatient [facility] G-Code Modifier: CL Plan Pt would [...] of Care supervision is transferred to a [facility] Therapy Services Occupational Therapist. Goals and/or treatment plan was established in collaboration with patient/family/other representatives. Images from the original note were not included. Speech-Language Pathology SPEECH LANGUAGE PATHOLOGY [facility] Dysphagia Treatment Note Patient Name: Jun Snyder Evaluation Date: 01/31/2025 Date of : 1965 Admission Date: 01/19/2025 2:13 AM Age: 59 y.o. Room/Bed: [facility]144/[facility]144 A Subjective Patient alert and cooperative. Seen [...] diet and for oropharyngeal strengthening. Continue acute AUTOMOBILE REPAIR SERVICE ESTIMATOR therapy per initial plan of care and [...] Expected End: 02/02/25 Resolved: 01/25/25 Therapy Time AUTOMOBILE REPAIR SERVICE ESTIMATOR Individual Minutes Time In: 1454 Time Out: 1515 Minutes: 21 FRANKLIN Carmona Images from the original note were not included. OCCUPATIONAL THERAPY [facility] Name/MRN: Jair Snyder ([id number]) Date: 01/31/2025 Attempted OT re-eval once pt [...] negative 01/22 A baumannii screen: negative Previous ([facility]) 01/02- sacral wound cx- E faecalis (Amp-S), skin ila, Clostridium clostrioforme 01/01- blood cx- 2/2 NG 12/30- blood cx- 2/2 NGTD 12/30- sputum cx- MSSA, resp ila 12/25- blood cx- 2/2 negative 12/14- sputum cx- MSSA, resp ila 12/14- MRSA pcr- MSSA 12/11- sputum cx- MSSA, resp ila Previous ([facility]) 11/28- L pleural fluid- negative 11/16- abd [...] cx- MSSA, resp ila 11/01- blood cx- 2/ negative 10/25- H pylori ag- negative 10/19- [...] benefits, and consideration of use of antimicrobials. Mikalajimbo MORAN PA-C [facility] Infectious Disease Images from the original note were not included. OCCUPATIONAL THERAPY [facility] Name/MRN: Jair Snyder ([id number]) Date: 01/31/2025 Attempted OT re-eval this AM, [...] any questions or concerns Bree Molina APRN WELLNESS NURSE RN A-G SAMPLE SHOE INSPECTOR AND REWORKER [facility] [place] [phone] Pt seen and examined independently by me. I reviewed with APPLICATIONS MANAGER-WELLNESS NURSE RN the medical history and the findings on physical examination. I discussed the patient s diagnosis and concur with the treatment plan as documented in his note. Please call [phone] or message me through Hybrent with any questions or concerns. [facility] ([facility]) Inpatient Warfarin Consult HPI: Jun Snyder is a 59 y.o. male admitted on 01/19/2025 for Complication of tracheostomy ([facility]) ([facility]) [J95.00] Past Medical History: Diagnosis Date Acute renal failure (ARF) ([facility]) 10/19/2019 Anemia 12/30/2021 Calcification of abdominal aorta ([facility]) 10/08/202309/[address] abd Diverticulosis 10/08/2023 ESRD on hemodialysis ([facility]) ([facility]) 10/26/2019 Hemodialysis patient ([facility]) ([facility]) HTN (hypertension) 12/01/2022 Hypertension IgA nephropathy IgA nephropathy determined by biopsy of kidney 10/26/2019 Missed vaccination due to patient refusal 10/08/2023 Has a number of non-scientific based beliefs which interfere with his understanding and acceptance of the medical benefit of vaccination. Nonrheumatic aortic valve stenosis 10/08/2023 Paroxysmal A-fib ([facility]) ([facility]) 08/18/2023 Tobacco abuse 10/08/2023 Patient is on [...] Tiffanie Dial RPh [facility] is available daily [phone] via alooma. If no response on Hybrent Chat then please page [phone]. Hospitalist Progress Note Subjective: Admit Date: 01/19/2025 PCP: Leilani Troncoso Room#: 1C-144/1C-144 A Chief Complaint Patient presents with Tracheostomy Tube Change Brief Hospital course: Jun Snyder is a 59 y.o. male who who presented to [facility] 01/19 after inadvertent removal of his tracheostomy. He was transferred to [facility] ICU for surgical evaluation. On arrival he [...] line on 01/29 Nephrology following, on dialysis AUTOMOBILE REPAIR SERVICE ESTIMATOR following PT recommends SNF Interval History: 01/31/2025-No overnight issues. Patient is seen and examined Patient is resting in his bed Dialysis today Denies any new acute complaints Labs reviewed, ESRD picture, hemoglobin 8.8, stable Case and plan discussed with patient and bedside nurse. All questions answered. Past Medical History: Past Medical History: Diagnosis Date Acute renal failure (ARF) ([facility]) 10/19/2019 Anemia 12/30/2021 Calcification of abdominal aorta ([facility]) 10/08/202309/[address] abd Diverticulosis 10/08/2023 ESRD on hemodialysis ([facility]) ([facility]) 10/26/2019 Hemodialysis patient ([facility]) ([facility]) HTN (hypertension) 12/01/2022 Hypertension IgA nephropathy IgA nephropathy determined by biopsy of kidney 10/26/2019 Missed vaccination due to patient refusal 10/08/2023 Has a number of non-scientific based beliefs which interfere with his understanding and acceptance of the medical benefit of vaccination. Nonrheumatic aortic valve stenosis 10/08/2023 Paroxysmal A-fib ([facility]) ([facility]) 08/18/2023 Tobacco abuse 10/08/2023 Adult diet Dysphagia [...] by ID -S/p tunneled central line placement -AUTOMOBILE REPAIR SERVICE ESTIMATOR follow, dysphagia diet -PT OT DC planning [...] MD Division of Hospital Medicine Inpatient Medical Services/[facility] Anticoagulation Management Service ([facility]) Inpatient Warfarin Consult HPI: Jun Snyder is a 59 y.o. male admitted on 01/19/2025 for Complication of tracheostomy ([facility]) ([facility]) [J95.00] Past Medical History: Diagnosis Date Acute renal failure (ARF) ([facility]) 10/19/2019 Anemia 12/30/2021 Calcification of abdominal aorta ([facility]) 10/08/202309/[address] abd Diverticulosis 10/08/2023 ESRD on hemodialysis ([facility]) ([facility]) 10/26/2019 Hemodialysis patient ([facility]) ([facility]) HTN (hypertension) 12/01/2022 Hypertension IgA nephropathy IgA nephropathy determined by biopsy of kidney 10/26/2019 Missed vaccination due to patient refusal 10/08/2023 Has a number of non-scientific based beliefs which interfere with his understanding and acceptance of the medical benefit of vaccination. Nonrheumatic aortic valve stenosis 10/08/2023 Paroxysmal A-fib ([facility]) ([facility]) 08/18/2023 Tobacco abuse 10/08/2023 Patient is on [...] accordingly 3. Will facilitate f/u at [facility] upon discharge Fatuma Odonnell RPh [facility] is available daily [phone] via Hybrent Chat. If no response on Hybrent Chat then please page [phone]. Images from the original note were not included. OCCUPATIONAL THERAPY [facility] Name/MRN: Jair Snyder ([id number]) Date: 01/30/2025 Attempted OT services however, Pt [...] candidate for diet upgrade. Christina Limon MS, CCC/AUTOMOBILE REPAIR SERVICE ESTIMATOR Nutrition Assessment Type and Reason for Visit: [...] Severe who remains admitted after presenting to [facility] on 01/19 after inadvertent removal of his tracheostomy. He was transferred to [facility] ICU for surgical evaluation, however pt was maintaining appropriate O2 saturations on room air and the decision was made to leave the tracheostomy out. Pt transferred to [facility] later that day (01/19). Course c/b acute [...] MWF schedule with Nephrology following. Transferred to [facility] 01/27. ID continues following for sacral osteomyelitis and recs IV Unasyn x 6 weeks--> stop date 02/13. Course c/b anxiousness and paranoia, often refusing care and wound dressing changes. In terms of nutrition, pt was only receiving nutrition via PEG INDUSTRIAL RELATIONS REPRESENTATIVE. He was NPO 01/19, Nepro @ 50mls/hr initiated 01/20 which ran until pt was made NPO/CLD for colonoscopy prep 01/23. Remained NPO 01/24, underwent MBSS 01/25 with recs for pureed/thin which remains his current diet with AUTOMOBILE REPAIR SERVICE ESTIMATOR following and recommending the same. PO intake [...] bedscale, 10/31: 200#, 11/28: 161#, 01/18: 142#) [place] Body Weight (lbs) (Calculated): 166 lbs [place] Body Weight (Kg) (Calculated): 75 kg % [place] Body Weight (Calculated): 70.5 % BMI (kg/m2) [...] soon to determine Marilu Pollock RD Contact: *[phone] Images from the original note were not included. PHYSICAL THERAPY [facility] Treatment Note Name/MRN: Jair Snyder ([id number]) Date of : 1965 Age: 59 y.o. [...] Timed Code Treatment Minutes: (2FA) Jocelin Ramirez INDUSTRIAL RELATIONS REPRESENTATIVE Cosigned by Betty Grady, PT at 01/30/2025 [...] F) Temporal 86 15 97 % -- 01/29/259 115/67 37.1 C (98.7 F) Temporal 83 [...] 9.6 Recent Labs 01/28/25 0516 01/29/25 0337 01/30/2546 WBC 9.8 9.4 8.8 HGB 8.5* [...] be of moderate complexity. Mikala MORAN PA-C [facility] Infectious Disease Hospitalist Progress Note Subjective: Admit Date: 01/19/2025 PCP: Leilani Troncoso Room#: 1C-144/1C-144 A Chief Complaint Patient presents with Tracheostomy Tube Change Brief Hospital course: Jun Snyder is a 59 y.o. male who who presented to [facility] 01/19 after inadvertent removal of his tracheostomy. He was transferred to [facility] ICU for surgical evaluation. On arrival he [...] HD successfully. hemodynamically stable. Transferred out to [facility] 01/27 ID following for sacral osteomyelitis, s/p wound debridement to bone on 01/02, cultures grew E faecalis and Clostridium, continue with renally dosed ampicillin sulbactam for 6 weeks course through 02/13/2025, needs tunneled line, status post IR CVC tunneled line on 01/29 Nephrology following, on dialysis AUTOMOBILE REPAIR SERVICE ESTIMATOR following PT recommends SNF Interval History: 01/30/2025-No [...] History: Diagnosis Date Acute renal failure (ARF) ([facility]) 10/19/2019 Anemia 12/30/2021 Calcification of abdominal aorta ([facility]) 10/08/202309/[address] abd Diverticulosis 10/08/2023 ESRD on hemodialysis ([facility]) ([facility]) 10/26/2019 Hemodialysis patient ([facility]) ([facility]) HTN (hypertension) 12/01/2022 Hypertension IgA nephropathy IgA nephropathy determined by biopsy of kidney 10/26/2019 Missed vaccination due to patient refusal 10/08/2023 Has a number of non-scientific based beliefs which interfere with his understanding and acceptance of the medical benefit of vaccination. Nonrheumatic aortic valve stenosis 10/08/2023 Paroxysmal A-fib ([facility]) ([facility]) 08/18/2023 Tobacco abuse 10/08/2023 Adult diet Dysphagia [...] 271 276 BMP: Recent Labs 01/28/25 0632 01/29/257 01/30/257 NA 137 134* 135* K 3.6 3.7 [...] by ID -S/p tunneled central line placement -AUTOMOBILE REPAIR SERVICE ESTIMATOR follow, dysphagia diet -PT OT DC planning [...] MD Division of Hospital Medicine Inpatient Medical Services/[facility] Progress Note Mr. Jun Snyder is [...] EPIC chat with any questions or concerns. Well[place] Nicole MD 01/30/2025 9:08 AM [facility] [address] [facility], [address] [place] [address] Office: [phone] Images from the original note were not included. Speech-Language Pathology SPEECH LANGUAGE PATHOLOGY [facility] Dysphagia Treatment Note Patient Name: Jun Snyder Evaluation Date: 01/29/2025 Date of : 1965 Admission Date: 01/19/2025 2:13 AM Age: 59 y.o. Room/Bed: 1C144/[facility]144 A Subjective Patient alert, confused and restless, [...] Expected End: 02/02/25 Resolved: 01/25/25 Therapy Time AUTOMOBILE REPAIR SERVICE ESTIMATOR Individual Minutes Time In: 1438 Time Out: 1456 Minutes: 18 FRANKLIN Bailon Images from the original note were not included. [facility] - Infectious Diseases [...] 9.99 (H) 10/27/2019 0545 GLUCOSE 80 01/29/2025 033 CALCIUM 9.8 01/29/2025 0337 PROT 7.6 01/22/2025 [...] low complexity. Radha Yee MD [facility] Progress Note Mr. Jun Snyder is [...] status and labs. Please message me through B[employer] chat with any questions or concerns. Wellington Nicole MD 01/29/2025 10:13 AM [facility] [address] [place] [address], [address] [place] [address] Office: [phone] Images from the original note were not included. Hospitalist Progress Note 01/29/2025 Subjective: Admit Date: 01/19/2025 PCP: Leilani Troncoso Room#: 1C144/144 A Brief Hospital Summary: Jun Snyder is a 59 y.o. male who who presented to [facility] 01/19 after inadvertent removal of his tracheostomy. He was transferred to [facility] ICU for surgical evaluation. On arrival he [...] HD successfully. hemodynamically stable. Transferred out to [facility] 01/27 Interval History: No overnight issues. Patient [...] History: Diagnosis Date Acute renal failure (ARF) ([facility]) 10/19/2019 Anemia 12/30/2021 Calcification of abdominal aorta ([facility]) 10/08/202309/[address] abd Diverticulosis 10/08/2023 ESRD on hemodialysis ([facility]) ([facility]) 10/26/2019 Hemodialysis patient ([facility]) ([facility]) HTN (hypertension) 12/01/2022 Hypertension IgA nephropathy IgA nephropathy determined by biopsy of kidney 10/26/2019 Missed vaccination due to patient refusal 10/08/2023 Has a number of non-scientific based beliefs which interfere with his understanding and acceptance of the medical benefit of vaccination. Nonrheumatic aortic valve stenosis 10/08/2023 Paroxysmal A-fib ([facility]) ([facility]) 08/18/2023 Tobacco abuse 10/08/2023 LABS: CBC: Recent [...] PT/INR: Recent Labs 01/27/25 0006 01/28/25 0516 01/29/257 PROTIME 19.9* 21.9* 24.0* INR 1.9* 2.2* 2.4* CARDIAC ENZYMES: No results for input(s): "TROPONINI" in the last 72 hours. Procalcitonin: No results found for: "PROCAL" COVID-19 PCR: No results for input(s): "COVID19" in the last 72 hours. Encounter Date: 01/19/25 ECG 12 lead Result Value Heart Rate 93 QRSD Interval 113 QT Interval 413 QTC Interval 515 P Tiona 69 QRS Tiona 93 T Wave Tiona 87 UT Interval 148 Impression Sinus rhythm Left atrial [...] sodium chloride 0.9 % 100 mL IVPB (Add-Ashburn), 3,000 mg, IntraVENous, q24h, Radha Yee MD, [...] mg, IntraVENous, q5 min PRN, Earlene Lozano, APPLICATIONS MANAGER - WELLNESS NURSE RN, 5 mg at 01/25/25 1846 metoprolol tartrate (Lopressor) tablet 25 mg, 25 mg, Per G Tube, BID, Earlene Lozano, APPLICATIONS MANAGER - WELLNESS NURSE RN, 25 mg at 01/28/25 2222 midodrine (Proamatine) [...] by ID Ordered tunneled central line placement AUTOMOBILE REPAIR SERVICE ESTIMATOR follow, dysphagia diet PT OT DC planning Past Medical History: Diagnosis Date Acute renal failure (ARF) ([facility]) 10/19/2019 Anemia 12/30/2021 Calcification of abdominal aorta ([facility]) 10/08/202309/[address] abd Diverticulosis 10/08/2023 ESRD on hemodialysis ([facility]) ([facility]) 10/26/2019 Hemodialysis patient ([facility]) ([facility]) HTN (hypertension) 12/01/2022 Hypertension IgA nephropathy IgA nephropathy determined by biopsy of kidney 10/26/2019 Missed vaccination due to patient refusal 10/08/2023 Has a number of non-scientific based beliefs which interfere with his understanding and acceptance of the medical benefit of vaccination. Nonrheumatic aortic valve stenosis 10/08/2023 Paroxysmal A-fib ([facility]) ([facility]) 08/18/2023 Tobacco abuse 10/08/2023 Plan As above [...] MD Division of Hospitalist Medicine Inpatient Medical Services/[facility] Images from the original note were not included. [facility] Wound Care Progress Note Jun Snyder AGE: [...] diverticulosis, IgA nephropathy, severe that presented to [facility] ED from a facility due to trach [...] History: Diagnosis Date Acute renal failure (ARF) ([facility]) 10/19/2019 Anemia 12/30/2021 Calcification of abdominal aorta ([facility]) 10/08/202309/[address] abd Diverticulosis 10/08/2023 ESRD on hemodialysis ([facility]) ([facility]) 10/26/2019 Hemodialysis patient ([facility]) ([facility]) HTN (hypertension) 12/01/2022 Hypertension IgA nephropathy IgA nephropathy determined by biopsy of kidney 10/26/2019 Missed vaccination due to patient refusal 10/08/2023 Has a number of non-scientific based beliefs which interfere with his understanding and acceptance of the medical benefit of vaccination. Nonrheumatic aortic valve stenosis 10/08/2023 Paroxysmal A-fib ([facility]) ([facility]) 08/18/2023 Tobacco abuse 10/08/2023 PAST SURGICAL HISTORY Past Surgical History: Procedure Laterality Date APPENDECTOMY CARDIAC CATHETERIZATION N/A 10/09/2024 Performed by Bob Watson MD at [facility] Cardiac Cath/EP Lab CARDIAC CATHETERIZATION Bilateral 11/01/2024 Performed by Bob Watson MD at [facility] Cardiac Cath/EP Lab CARDIAC CATHETERIZATION N/A 11/01/2024 Performed by Bob Watson MD at [facility] Cardiac Cath/EP Lab COLONOSCOPY N/A 01/24/2025 Performed by Chadd Davis MD at [facility] ENDOSCOPY FISTULAGRAM (HISTORICAL) Left 09/15/2021 LEFT UPPER [...] Medication Sig Dispense Refill epoetin rowan-epbx (Retacrit) 08913 UNIT/ML injection Inject 0.79 mL (7,900 Units) [...] to follow Recommend to follow up at [facility] Out[facility] wound care center after hospital [...] Gill DO at 01/29/2025 4:37 PM EDT [facility] Anticoagulation Management Service ([facility]) Inpatient Warfarin Consult HPI: Jun Snyder is a 59 y.o. male admitted on 01/19/2025 for Complication of tracheostomy (CMS/HCC) (HCC) [J95.00] Past Medical History: Diagnosis Date Acute renal failure (ARF) (HCC) 10/19/2019 Anemia 12/30/2021 Calcification of abdominal aorta (HCC) 10/08/202309/[address] abd Diverticulosis 10/08/2023 ESRD on hemodialysis ([facility]) ([facility]) 10/26/2019 Hemodialysis patient ([facility]) ([facility]) HTN (hypertension) 12/01/2022 Hypertension IgA nephropathy IgA nephropathy determined by biopsy of kidney 10/26/2019 Missed vaccination due to patient refusal 10/08/2023 Has a number of non-scientific based beliefs which interfere with his understanding and acceptance of the medical benefit of vaccination. Nonrheumatic aortic valve stenosis 10/08/2023 Paroxysmal A-fib ([facility]) ([facility]) 08/18/2023 Tobacco abuse 10/08/2023 Patient is on warfarin for Afib, mechanical AVR and has a goal INR 2.0 - 3.0. Warfarin is currently managed by facility, has yet to be seen by [facility]. Pt's home dose of warfarin [...] accordingly 3. Will facilitate f/u at [facility] upon discharge Fatuma Odonnell RPh [facility] is available daily [phone] via Hybrent Chat. If no response on Hybrent Chat then please page [phone]. [facility] Progress Note Mr. Jun Snyder is [...] concerns. Wellington Nicole MD 01/28/2025 2:08 PM [facility] [address] [facility], [address] [place] [address] Office: [phone] Hospitalist Progress Note 01/28/2025 Subjective: Admit Date: 01/19/2025 PCP: Leilani Troncoso Room#: 1C-144/1C-144 A Brief Hospital Summary: Jun Snyder is a 59 y.o. male who who presented to [facility] 01/19 after inadvertent removal of his tracheostomy. He was transferred to [facility] ICU for surgical evaluation. On arrival he [...] HD successfully. hemodynamically stable. Transferred out to [facility] 01/27 Interval History: No overnight issues. Up [...] History: Diagnosis Date Acute renal failure (ARF) ([facility]) 10/19/2019 Anemia 12/30/2021 Calcification of abdominal aorta ([facility]) 10/08/202309/[address] abd Diverticulosis 10/08/2023 ESRD on hemodialysis ([facility]) ([facility]) 10/26/2019 Hemodialysis patient ([facility]) ([facility]) HTN (hypertension) 12/01/2022 Hypertension IgA nephropathy IgA nephropathy determined by biopsy of kidney 10/26/2019 Missed vaccination due to patient refusal 10/08/2023 Has a number of non-scientific based beliefs which interfere with his understanding and acceptance of the medical benefit of vaccination. Nonrheumatic aortic valve stenosis 10/08/2023 Paroxysmal A-fib ([facility]) ([facility]) 08/18/2023 Tobacco abuse 10/08/2023 LABS: CBC: Recent [...] QT Interval 413 QTC Interval 515 P Tiona 69 QRS Tiona 93 T Wave Tiona 87 UT Interval 148 Impression Sinus rhythm Left atrial [...] sodium chloride 0.9 % 100 mL IVPB (Add-Ashburn), 3,000 mg, IntraVENous, q24h, Radha Yee MD, [...] q5 min PRN, Earlene Lozano APRN - WELLNESS NURSE RN, 5 mg at 01/25/25 1846 metoprolol tartrate (Lopressor) tablet 25 mg, 25 mg, Per G Tube, BID, Earlene Lozano APRN - WELLNESS NURSE RN, 25 mg at 01/28/25 0848 midodrine (Proamatine) tablet 10 mg, 10 mg, Oral, BID, Arthur Joseph MD, 10 mg at 01/28/25 0848 naloxone (Narcan) injection 0.4 mg, 0.4 mg, IntraVENous, q5 min PRN, Steev Lassiter MD oxyCODONE (Roxicodone) immediate release tablet [...] for sacral wound by ID PT OT AUTOMOBILE REPAIR SERVICE ESTIMATOR follow, dysphagia diet Past Medical History: Diagnosis Date Acute renal failure (ARF) (HCC) 10/19/2019 Anemia 12/30/2021 Calcification of abdominal aorta ([facility]) 10/08/202309/[address] abd Diverticulosis 10/08/2023 ESRD on hemodialysis ([facility]) ([facility]) 10/26/2019 Hemodialysis patient ([facility]) ([facility]) HTN (hypertension) 12/01/2022 Hypertension IgA nephropathy IgA nephropathy determined by biopsy of kidney 10/26/2019 Missed vaccination due to patient refusal 10/08/2023 Has a number of non-scientific based beliefs which interfere with his understanding and acceptance of the medical benefit of vaccination. Nonrheumatic aortic valve stenosis 10/08/2023 Paroxysmal A-fib ([facility]) ([facility]) 08/18/2023 Tobacco abuse 10/08/2023 Plan As above [...] Division of Hospitalist Medicine Inpatient Medical Services/[facility] Anticoagulation Management Service ([facility]) Inpatient Warfarin Consult HPI: Jun Snyder is a 59 y.o. male admitted on 01/19/2025 for Complication of tracheostomy ([facility]) ([facility]) [J95.00] Past Medical History: Diagnosis Date Acute renal failure (ARF) ([facility]) 10/19/2019 Anemia 12/30/2021 Calcification of abdominal aorta ([facility]) 10/08/202309/[address] abd Diverticulosis 10/08/2023 ESRD on hemodialysis ([facility]) ([facility]) 10/26/2019 Hemodialysis patient ([facility]) ([facility]) HTN (hypertension) 12/01/2022 Hypertension IgA nephropathy IgA [...] accordingly 3. Will facilitate f/u at [facility] upon discharge Vu Guido PharmD [facility] is available daily [phone] via alooma. If no response on Hybrent Chat then please page [phone]. [facility] Anticoagulation Management Service ([facility]) Inpatient Warfarin Consult HPI: Jun Snyder is a 59 y.o. male admitted on 01/19/2025 for Complication of tracheostomy ([facility]) ([facility]) [J95.00] Past Medical History: Diagnosis Date Acute renal failure (ARF) ([facility]) 10/19/2019 Anemia 12/30/2021 Calcification of abdominal aorta ([facility]) 10/08/202309/[address] abd Diverticulosis 10/08/2023 ESRD on hemodialysis ([facility]) ([facility]) 10/26/2019 Hemodialysis patient ([facility]) ([facility]) HTN (hypertension) 12/01/2022 Hypertension IgA nephropathy IgA nephropathy determined by biopsy of kidney 10/26/2019 Missed vaccination due to patient refusal 10/08/2023 Has a number of non-scientific based beliefs which interfere with his understanding and acceptance of the medical benefit of vaccination. Nonrheumatic aortic valve stenosis 10/08/2023 Paroxysmal A-fib ([facility]) ([facility]) 08/18/2023 Tobacco abuse 10/08/2023 Patient is on [...] accordingly 3. Will facilitate f/u at [facility] upon discharge Vu Guido PharmD [facility] is available daily [phone] via alooma. If no response on Hybrent Chat then please page [phone]. [facility] Respiratory Care Department Progress Note As [...] Respiratory in the care of this patient, [facility] Progress Note Mr. Jun Snyder is [...] 7 days Lab Units 01/27/25 00001/26/258 01/25/25 025 MAGNESIUM mg/dL 1.9 2.0 2.1 Results from [...] concerns. Wellington Nicole MD 01/27/2025 7:11 AM [facility] [address] [place] [address], [address] [place] [address] Office: [phone] ICU Progress Note Name: Jun Snyder : 1965(59 y.o.) Date: 01/27/25 Team: MICU Attending: DARRYN HIGGINS Subjective: Hospital Summary: Jun Snyder is a 59 y.o. male who who presented to [facility] 01/19 after inadvertent removal of his tracheostomy. He was transferred to [facility] ICU for surgical evaluation. On arrival he [...] kg/m . I/O: 01/26 07 - 01/27 0659 In: 861 [P.O.:200; I.V.:661] [...] Normal [] Scar/Lesion/Mass Inspection of teeth/lips/gums Dentition: [x][place] Teeth []Dentures Lips/Gums: [x]Intact []Lesion Present Mucosa: [x][place] []Moist []Dry Neck: External Appearance Overall Appearance: [...] displayed. ABGs: No results for input(s): "PHART", "YOS3VQB", "PO2ART", "CAV8JWI", "SO2ART", "N3NUXZLI" in the last 72 hours. Lactic Acid: [...] Plan: Principal Problem: Complication of tracheostomy (CMS/HCC) ([facility]) Active Problems: Severe malnutrition (CMS/HCC) ([facility]) BRBPR (bright red blood per rectum) GIB [...] H/H and PT/INR q12 - Diet per AUTOMOBILE REPAIR SERVICE ESTIMATOR recs Appreciate Recs: Pureed solids and Thin [...] apply Betadine and allow to dry, leave STRATEGIC PARTNER DEVELOPMENT MANAGER daily and PRN - PVRs for circulation [...] and warfarin Disposition: Stable for Transfer to [facility] Cosigned by Darryn Higgins MD at 01/27/2025 [...] PT/OT - Remains stable for transfer to [facility]. Code Status: Full Code Disposition: ok for [facility] Time spent preparing to see the patient, obtaining/reviewing separately obtained history, completing an appropriate medical examination of the patient, ordering medications/tests/procedures, documenting clinical information on the EMR, and/or coordinating care is a subsequent visit: 35 minutes (Level II). Darryn Higgins MD Pulmonary and Critical Care Medicine Attending Pager #[phone] Images from the original note were not included. PHYSICAL THERAPY [facility] Name/MRN: Jair Snyder ([id number]) Date: 01/26/2025 Attempt Note Pt on iHD. Will re-attempt as able. Chantal Rossi PT [facility] Progress Note Mr. Jun Snyder is [...] Results from last 7 days Lab Units 01/26/2524701/25/25 02501/24/25 0429 MAGNESIUM mg/dL 2.0 2.1 2.3 [...] status and labs. Please message me through Bensussen Deutsch chat with any questions or concerns. Wellington Nicole MD 01/26/2025 1:55 PM [facility] [address] [place] [address], [address] [place] [address] Office: [phone] Speech-Language Pathology Pt is a hold at this time, as he is receiving dialysis. Will re-attempt next date as schedule permits. Treva Mccallum MS. JESUS-AUTOMOBILE REPAIR SERVICE ESTIMATOR ICU Transfer Checklist Hospital course: 59 y.o. male PMH trach s/p removal, peg, HTN, afib, ESRD on TTS HD, aortic stenosis s/p mechanical valve who presented to [facility] 01/19 after inadvertent removal of his tracheostomy. Transferred to [facility] ICU for surgical evaluation. On arrival he [...] convert to PO if able) None Anticipated [place] Medications (ICU initiated) or Dose Changes and Indication No Permanently Discontinued Home Medications and Reason for medication contraindication No Payne Catheter (please remove if able. Note: place DC order) No Central Line (please remove if able. Note: place DC order) No Transfer Discussed with: Dr. Russell, [facility] If additional questions for ICU team within 24 hours of ICU transfer, page network consultant ICU resident for clarifications. [facility] Anticoagulation Management Service ([facility]) Inpatient Warfarin Consult HPI: Jun Snyder is a 59 y.o. male admitted on 01/19/2025 for Complication of tracheostomy (CMS/HCC) (HCC) [J95.00] Past Medical History: Diagnosis Date Acute renal failure (ARF) (HCC) 10/19/2019 Anemia 12/30/2021 Calcification of abdominal aorta (HCC) 10/08/202309/[address] abd Diverticulosis 10/08/2023 ESRD on hemodialysis ([facility]) ([facility]) 10/26/2019 Hemodialysis patient ([facility]) ([facility]) HTN (hypertension) 12/01/2022 Hypertension IgA nephropathy IgA nephropathy determined by biopsy of kidney 10/26/2019 Missed vaccination due to patient refusal 10/08/2023 Has a number of non-scientific based beliefs which interfere with his understanding and acceptance of the medical benefit of vaccination. Nonrheumatic aortic valve stenosis 10/08/2023 Paroxysmal A-fib ([facility]) ([facility]) 08/18/2023 Tobacco abuse 10/08/2023 Patient is on [...] accordingly 3. Will facilitate f/u at [facility] upon discharge Adalberto Deleon PharmD [facility] is available daily [phone] via alooma. If no response on Hybrent Chat then please page [phone]. Images from the original note were not [...] 01/26/2025247 CO2 20 (L) 01/26/2025247 BUN 19 01/26/2025 0248 CREATININE 3.37 (H) [...] original note were not included. [facility] Wound Care Progress Note Jun Snyder AGE: [...] diverticulosis, IgA nephropathy, severe that presented to [facility] ED from a facility due to trach dislodgement. Wound Care consulted for Pressure Injury sacrum and Ischemic ulcers to left toes" Patient resting in [place] with floor RN present at bedside. Wound vac changed at time of visit with patient tolerating well. Denies any needs. PAST MEDICAL HISTORY Past Medical History: Diagnosis Date Acute renal failure (ARF) ([facility]) 10/19/2019 Anemia 12/30/2021 Calcification of abdominal aorta ([facility]) 10/08/202309/[address] abd Diverticulosis 10/08/2023 ESRD on hemodialysis ([facility]) ([facility]) 10/26/2019 Hemodialysis patient ([facility]) ([facility]) HTN (hypertension) 12/01/2022 Hypertension IgA nephropathy IgA nephropathy determined by biopsy of kidney 10/26/2019 Missed vaccination due to patient refusal 10/08/2023 Has a number of non-scientific based beliefs which interfere with his understanding and acceptance of the medical benefit of vaccination. Nonrheumatic aortic valve stenosis 10/08/2023 Paroxysmal A-fib ([facility]) ([facility]) 08/18/2023 Tobacco abuse 10/08/2023 PAST SURGICAL HISTORY Past Surgical History: Procedure Laterality Date APPENDECTOMY CARDIAC CATHETERIZATION N/A 10/09/2024 Performed by Bob Watson MD at [facility] Cardiac Cath/EP Lab CARDIAC CATHETERIZATION Bilateral 11/01/2024 Performed by Bob Watson MD at [facility] Cardiac Cath/EP Lab CARDIAC CATHETERIZATION N/A 11/01/2024 Performed by Bob Watson MD at [facility] Cardiac Cath/EP Lab COLONOSCOPY N/A 01/24/2025 Performed by Chadd Davis MD at [facility] ENDOSCOPY FISTULAGRAM (HISTORICAL) Left 09/15/2021 LEFT UPPER ARM HX AV FISTULA CREATION IR EMBOLIZATION 10/14/2024 IR EMBOLIZATION 10/14/2024 [facility] SPECIAL PROCEDURES IR FISTULAGRAM 08/07/2022 IR FISTULAGRAM 08/07/2022 [facility] IR IMAGING TONSILLECTOMY (HISTORICAL) FAMILY HISTORY Family [...] Medication Sig Dispense Refill epoetin rowan-epbx (Retacrit) 15740 UNIT/ML injection Inject 0.79 mL (7,900 Units) [...] apply Betadine and allow to dry, leave STRATEGIC PARTNER DEVELOPMENT MANAGER daily and PRN -Recommend PVRs for circulation check Nutritional support Wound Care to follow Recommend to follow up at [facility] Outpatient wound care center after hospital [...] 59 y.o. male who who presented to [facility] 01/19 after inadvertent removal of his tracheostomy. He was transferred to [facility] ICU for surgical evaluation. On arrival he [...] Normal [] Scar/Lesion/Mass Inspection of teeth/lips/gums Dentition: [x][place] Teeth []Dentures Lips/Gums: [x]Intact []Lesion Present Mucosa: [x][place] []Moist []Dry Neck: External Appearance Overall Appearance: [...] Glucose: Recent Labs 01/23/25 0626 01/23/25 2317 01/24/2542801/24/25121601/25/25 0251 01/26/25 0248 GLUCOSE -- -- 74 [...] displayed. ABGs: No results for input(s): "PHART", "YPA4JLR", "PO2ART", "NQE6GFC", "SO2ART", "M2ZMEDYN" in the last 72 hours. Lactic Acid: [...] Plan: Principal Problem: Complication of tracheostomy (CMS/HCC) ([facility]) Active Problems: Severe malnutrition (CMS/HCC) ([facility]) BRBPR (bright red blood per rectum) GIB [...] peripheral blood smear pending - Diet per AUTOMOBILE REPAIR SERVICE ESTIMATOR recs - continue q12 H/H and PT/INR [...] apply Betadine and allow to dry, leave STRATEGIC PARTNER DEVELOPMENT MANAGER daily and PRN - PVRs for circulation check - rec wound vac for sacral wound, change 3x/wk and PRN Hx CAD s/p CABG Severe Aortic stenosis s/p proesthetic mechanical valve S/p 23mm [facility] mechanical valve replacement on 10/12. TTE 11/24 without mechanical valve regurgitation or stenosis - Continue heparin - Warfarin 0.5 mg once daily, pharmacy to dose ESRD (on HD [facility]) HAGMA - improving Hypotension, chronic HAGMA likely [...] on heparin and warfarin Disposition: Transfer to [facility] Cosigned by Darryn Higgins MD at 01/26/2025 [...] hemoglobin stable today. Stable for transfer to [facility]. Code Status: Full Code Disposition: Transfer to [facility] Time spent preparing to see the patient, obtaining/reviewing separately obtained history, completing an appropriate medical examination of the patient, ordering medications/tests/procedures, documenting clinical information on the EMR, and/or coordinating care is a subsequent visit: 35 minutes (Level II). Darryn Higgins MD Pulmonary and Critical Care Medicine Attending Pager #[phone] Images from the original note were not [...] 01/25/2025250 CALCIUM 10.1 01/25/2025250 PROT 7.6 01/22/2025 0419 BILITOT 0.9 01/22/2025 0419 ALKPHOS 274 (H) 01/22/2025 0419 AST 51 (H) 01/22/2025 0419 ALT 44 (H) 01/22/2025 0419 PROCAL 4.10 (H) 12/31/2024 0108 PROCAL 4.25 (H) 11/23/2024 1430 PROCAL 3.47 (H) 11/01/2024 0732 Lab Results Component Value Date/Time WBC 10.2 01/25/2025 025 HGB 7.7 (L) 01/25/2025 1302 HGB 9.4 [...] stenosis s/p mechanical valve who presented to [facility] 01/19 after inadvertent removal of his tracheostomy. Transferred to [facility] ICU for surgical evaluation. On arrival he [...] convert to PO if able) None Anticipated [place] Medications (ICU initiated) or Dose Changes and Indication No Permanently Discontinued Home Medications and Reason for medication contraindication No Payne Catheter (please remove if able. Note: place DC order) No Central Line (please remove if able. Note: place DC order) No Transfer Discussed with: Dr. Russell [facility] If additional questions for ICU team within 24 hours of ICU transfer, page network consultant ICU resident for clarifications. Images from the original note were not included. Speech-Language Pathology SPEECH LANGUAGE PATHOLOGY [facility] Modified Barium Swallow Study Patient Name: Jun Snyder Evaluation Date: 01/25/2025 Date of : 1965 Admission Date: 01/19/2025 2:13 AM Age: 59 y.o. Room/Bed: T3-321/T3321 A IMPRESSION: The patient presents with moderate [...] swallow). Pt would benefit from skilled acute AUTOMOBILE REPAIR SERVICE ESTIMATOR services to ensure diet tolerance, train swallow [...] History: Diagnosis Date Acute renal failure (ARF) ([facility]) 10/19/2019 Anemia 12/30/2021 Calcification of abdominal aorta ([facility]) 10/08/202309/[address] abd Diverticulosis 10/08/2023 ESRD on hemodialysis ([facility]) ([facility]) 10/26/2019 Hemodialysis patient ([facility]) ([facility]) HTN (hypertension) 12/01/2022 Hypertension IgA nephropathy IgA nephropathy determined by biopsy of kidney 10/26/2019 Missed vaccination due to patient refusal 10/08/2023 Has a number of non-scientific based beliefs which interfere with his understanding and acceptance of the medical benefit of vaccination. Nonrheumatic aortic valve stenosis 10/08/2023 Paroxysmal A-fib ([facility]) ([facility]) 08/18/2023 Tobacco abuse 10/08/2023 Past Surgical History: Past Surgical History: Procedure Laterality Date APPENDECTOMY CARDIAC CATHETERIZATION N/A 10/09/2024 Performed by Bob Watson MD at [facility] Cardiac Cath/EP Lab CARDIAC CATHETERIZATION Bilateral 11/01/2024 Performed by Bob Watson MD at [facility] Cardiac Cath/EP Lab CARDIAC CATHETERIZATION N/A 11/01/2024 Performed by Bob Watson MD at [facility] Cardiac Cath/EP Lab COLONOSCOPY N/A 01/24/2025 Performed by Chadd Davis MD at [facility] ENDOSCOPY FISTULAGRAM (HISTORICAL) Left 09/15/2021 LEFT UPPER ARM HX AV FISTULA CREATION IR EMBOLIZATION 10/14/2024 IR EMBOLIZATION 10/14/2024 [facility] SPECIAL PROCEDURES IR FISTULAGRAM 08/07/2022 IR FISTULAGRAM 08/07/2022 [facility] IR IMAGING TONSILLECTOMY (HISTORICAL) Admission Diagnosis: Patient Active Problem List Diagnosis Date Noted Severe malnutrition ([facility]) ([facility]) 01/19/2025 Complication of tracheostomy ([facility]) ([facility]) 01/19/2025 jail (current) use of antibiotics 01/12/2025 Acute respiratory failure with hypoxia ([facility]) [J96.01] 01/08/2025 Tracheostomy care ([facility]) [Z43.0] 01/08/2025 Pulmonary embolism ([facility]) 01/08/2025 Sacral osteomyelitis ([facility]) ([facility]) 01/03/2025 Pneumonia of both lungs due to methicillin susceptible Staphylococcus aureus (MSSA) ([facility]) 01/01/2025 Leukocytosis 12/30/2024 Decubitus ulcer of sacral region, unstageable ([facility]) 12/30/2024 Peritonitis due to fungus ([facility]) 11/30/2024 History of abdominal surgery 11/30/2024 Leg DVT (deep venous thromboembolism), acute, left ([facility]) 11/30/2024 Ischemic ulcer of toe of left foot, limited to breakdown of skin ([facility]) 11/30/2024 Tracheostomy dependence ([facility]) 11/30/2024 Pleural effusion 11/28/2024 Gastric ulceration 2024 Atrial flutter, unspecified type ([facility]) 10/03/2024 RSV (acute bronchiolitis due to respiratory syncytial virus) 10/03/2024 Diverticulosis 10/08/2023 Nonrheumatic aortic valve stenosis 10/08/2023 Calcification of abdominal aorta (HCC) 10/08/2023 Missed vaccination due to patient refusal 10/08/2023 Tobacco abuse 10/08/2023 Alcohol use disorder in remission 10/08/2023 Paroxysmal A-fib ([facility]) ([facility]) 08/18/2023 HTN (hypertension) 12/01/2022 ESRD on hemodialysis ([facility]) ([facility]) 10/26/2019 IgA nephropathy determined by biopsy of [...] diverticulosis, IgA nephropathy, severe that presented to [facility] ED from a facility due to trach dislodgement. Per patient, was trying to disconnect his vent to transfer to another room but accidentally pulled out his tracheostomy. This event happened approximately 45 minutes before ED arrival. ED attempted to place tracheostomy tube back but were unsuccessful. Decision was made to transfer patient to [facility] ICU for further airway management and determine [...] Expected End: 02/02/25 Resolved: 01/25/25 Therapy Time AUTOMOBILE REPAIR SERVICE ESTIMATOR Individual Minutes Time In: 1145 Time Out: 1205 Minutes: 20 Christina Nunez MA, CCC/AUTOMOBILE REPAIR SERVICE ESTIMATOR [facility] Anticoagulation Management Service ([facility]) Inpatient Warfarin Consult HPI: Jun Snyder is a 59 y.o. male admitted on 01/19/2025 for Complication of tracheostomy (CMS/HCC) ([facility]) [J95.00] Past Medical History: Diagnosis Date Acute renal failure (ARF) ([facility]) 10/19/2019 Anemia 12/30/2021 Calcification of abdominal aorta ([facility]) 10/08/202309/[address] abd Diverticulosis 10/08/2023 ESRD on hemodialysis (CMS/HCC) ([facility]) 10/26/2019 Hemodialysis patient (CMS/HCC) ([facility]) HTN (hypertension) 12/01/2022 Hypertension IgA nephropathy IgA [...] has yet to be seen by [facility]. Pt's home dose of warfarin [...] accordingly 3. Will facilitate f/u at [facility] upon discharge Adalberto Deleon, PharmD, PharmD [facility] is available daily [phone] via Epic Chat. If no response on Hybrent Chat then please page [phone]. [facility] Progress Note Mr. Jun Snyder is [...] from last 7 days Lab Units 01/25/25 02501/23/250 01/22/25 0419 SODIUM mmol/L 138 < > [...] from last 7 days Lab Units 01/25/25 02501/24/2542801/23/25 0430 MAGNESIUM mg/dL 2.1 2.3 2.1 Results [...] status and labs. Please message me through [employer] chat with any questions or concerns. Wellington Nicole MD 01/25/2025 11:44 AM [facility] [address] [place] [address], [address] [place] [address] Office: [phone] Images from the original note were not [...] time - planning to eventually discharge to [facility] - will forward chart to Palliative [...] AV replacement Supratherapeutic INR - [facility] [employer] valve in 09/2024 - coumadin held due to bleeding and supratherapeutic levels Chronic respiratory failure s/p tracheostomy Tracheostomy dislodgement - has been saturating well without trach on RA so has not been replaced Palliative Care Encounter - Code Status: Full Code - Jun Snyder has been seen in consultation by [facility] Palliative Care during their admission to [facility]. They currently have no uncontrolled symptoms and [...] Palliative Care IDT members involved: Palliative Care Principal Trainer Discussed the plan of care with the [...] to have bile peritonitis" 11/28/24: transferred to [facility] He ended up developing sacral ulcer and osteomyelitis at [facility]. He then ended up dislodging his tracheostomy, and was brought to [facility] ED for further care. Palliative care consulted [...] much better. Planning to eventually discharge to [facility]. Discussed trying to get palliative [...] status: SNF Work history: unknown status: unknown Druze annette: Non-Christianity ROS: See palliative care ROS/ESAS below; All other systems were reviewed and are negative. [place] Symptom Assessment Score [place] Score Pain Score (if non-verbal, add .FLACC [...] 59 y.o. male who who presented to [facility] 01/19 after inadvertent removal of his tracheostomy. He was transferred to [facility] ICU for surgical evaluation. On arrival he [...] Infusions:heparin, 5-30 Units/kg/hr, Last Rate: 12 Units/kg/hr (01/24/251657) sodium chloride, 20 mL/hr, Last Rate: 20 mL/hr (01/23/25 164) Objective: Last Vitals: BP MAP 124/74 (01/25/25 0429) 85 (01/25/25 0400) Arterial BP MAP Temp 37.1 C (98.7 F) (01/25/25 042) Pulse 97 (01/25/25 0413) Resp 16 (01/25/25 041) SpO2 97 % (01/25/25 041) Weight 58.9 kg (129 lb 13.6 oz) [...] Normal [] Scar/Lesion/Mass Inspection of teeth/lips/gums Dentition: [x][place] Teeth []Dentures Lips/Gums: [x]Intact []Lesion Present Mucosa: [x][place] []Moist []Dry Neck: External Appearance Overall Appearance: [...] 19.2* ABGs: No results for input(s): "PHART", "ITN5EMK", "PO2ART", "IBL2XZH", "SO2ART", "J5XDRALK" in the last 72 hours. Lactic Acid: [...] Plan: Principal Problem: Complication of tracheostomy (CMS/HCC) ([facility]) Active Problems: Severe malnutrition (CMS/HCC) (HCC) BRBPR [...] peripheral blood smear pending - Diet per AUTOMOBILE REPAIR SERVICE ESTIMATOR recs - continue q12 H/H and PT/INR [...] Prophylaxis: SCDs warfarin held Disposition: Transfer to [facility] Cosigned by Darryn Higgins MD at 01/25/2025 [...] and appropriate. If stable can transfer to [facility]. Code Status: Full Code Disposition: Transfer to [facility] Time spent preparing to see the patient, obtaining/reviewing separately obtained history, completing an appropriate medical examination of the patient, ordering medications/tests/procedures, documenting clinical information on the EMR, and/or coordinating care is a subsequent visit: 35 minutes (Level II). Darryn Higgins MD Pulmonary and Critical Care Medicine Attending Pager #[phone] Images from the original note were not [...] 12/11- sputum cx- MSSA, resp ila Previous ([facility]) 11/28- L pleural fluid- negative 11/16- abd [...] be of moderate complexity. Mikala MORAN PA-C [facility] Infectious Disease [facility] Progress Note Mr. Jun Snyder is [...] status and labs. Please message me through [employer] chat with any questions or concerns. Wellington Nicole MD 01/24/2025 3:17 PM [facility] [address], [address] [place] [address] Office: [phone] Nutrition Assessment Type and Reason for Visit: [...] receiving and tolerating while at [facility]. Noted AUTOMOBILE REPAIR SERVICE ESTIMATOR is following- trach remains out and pt stable without it. AUTOMOBILE REPAIR SERVICE ESTIMATOR most recently recommended MBSS completion- will follow and monitor AUTOMOBILE REPAIR SERVICE ESTIMATOR recs and need for adjustment in EN [...] the ICU after he initially presented to [facility] ED on 01/19/25 due to inadvertent removal of his tracheostomy, pt was transferred to [facility] ICU for surgical evaluation, on arrival he [...] course, Nephrology remains following 2/2 ESRD- continuing M/W/ schedule at this time, pt had HD today with 1000mL removed, Surgery was consulted for evaluation of bleeding sacral wound- saigned off yesterday with recs for no acute surgical intervention and to continue wound care/vac, wound care remains following due to sacrum stage 4 with vac management and also left toes 1-4 arterial ulcers, AUTOMOBILE REPAIR SERVICE ESTIMATOR remains following- yesterday noted recs to continue [...] able to be re-initiated as well as AUTOMOBILE REPAIR SERVICE ESTIMATOR recs for possible diet advancement s/p MBSS. [...] bedscale, 10/31: 200#, 11/28: 161#, 01/18: 142#) [place] Body Weight (lbs) (Calculated): 166 lbs [place] Body Weight (Kg) (Calculated): 75 kg % [place] Body Weight (Calculated): 78.2 % BMI (kg/m2) [...] determine Dana El [address] Contact: available via [employer] chat or *[phone] [facility] Anticoagulation Management [facility] ([facility]) Inpatient Warfarin Consult HPI: Jun Snyder is a 59 y.o. male admitted on 01/19/2025 for Complication of tracheostomy ([facility]) ([facility]) [J95.00] Past Medical History: Diagnosis Date Acute renal failure (ARF) ([facility]) 10/19/2019 Anemia 12/30/2021 Calcification of abdominal aorta ([facility]) 10/08/202309/[address] abd Diverticulosis 10/08/2023 ESRD on hemodialysis ([facility]) ([facility]) 10/26/2019 Hemodialysis patient ([facility]) ([facility]) HTN (hypertension) 12/01/2022 Hypertension IgA nephropathy IgA nephropathy determined by biopsy of kidney 10/26/2019 Missed vaccination due to patient refusal 10/08/2023 Has a number of non-scientific based beliefs which interfere with his understanding and acceptance of the medical benefit of vaccination. Nonrheumatic aortic valve stenosis 10/08/2023 Paroxysmal A-fib ([facility]) ([facility]) 08/18/2023 Tobacco abuse 10/08/2023 Patient is on [...] accordingly 3. Will facilitate f/u at [facility] upon discharge Fatuma Odonnell RPh, PharmD [facility] is available daily [phone] via alooma. If no response on Hybrent Chat then please page [phone]. ICU Progress Note Name: Jun Snyder : 1965(59 y.o.) Date: 01/24/25 Team: MICU Attending: Dr. Higgins Subjective: Hospital Summary: Mr Snyder is a 59 year old male who presented to [facility] 01/19 after inadvertent removal of his tracheostomy. He was transferred to [facility] ICU for surgical evaluation. On arrival he [...] (129 lb 13.6 oz) (01/19/25 06) BMI Body mass index is 18.63 kg/m [...] Anterior;Left (Active) Date First Assessed/Time First Assessed: 02/19/25 2213 Present on Original Admission: No Primary [...] Normal [] Scar/Lesion/Mass Inspection of teeth/lips/gums Dentition: [][place] Teeth []Dentures Lips/Gums: []Intact []Lesion Present Mucosa: [x][place] []Moist [x]Dry Neck: External Appearance Overall Appearance: [...] PHOS 6.8* 4.5 5.1* LFTs: Recent Labs 01/22/25 0419 AST 51* ALT 44* PROT 7.6 [...] 19.4* ABGs: No results for input(s): "PHART", "GAZ6SXS", "PO2ART", "LRV6TQE", "SO2ART", "I9HDKHNY" in the last 72 hours. Lactic Acid: [...] clean toes w NS, apply betadine, leave STRATEGIC PARTNER DEVELOPMENT MANAGER - PVRs for circulation check - rec [...] post scope if stable can transfer to [facility] tomorrow Code Status: Full Code Disposition: Remain in ICU Time spent preparing to see the patient, obtaining/reviewing separately obtained history, completing an appropriate medical examination of the patient, ordering medications/tests/procedures, documenting clinical information on the EMR, and/or coordinating care is a subsequent visit: 35 minutes (Level II). Darryn Higgins MD Pulmonary and Critical Care Medicine Attending Pager #[phone] [facility] Progress Note Mr. Jun Snyder is [...] concerns. Wellington Nicole MD 01/23/2025 5:03 PM [facility] [address] [place] [address], [address] [place] [address] Office: [phone] Images from the original note were not included. Speech-Language Pathology SPEECH LANGUAGE PATHOLOGY [facility] Dysphagia Treatment Note Patient Name: Jun Snyder Evaluation Date: 01/23/2025 Date of : 1965 Admission Date: 01/19/2025 2:13 AM Age: 59 y.o. [facility]: [facility] A Subjective Patient alert and cooperative. [...] Start: 01/19/25 Expected End: 02/02/25 Therapy Time AUTOMOBILE REPAIR SERVICE ESTIMATOR Individual Minutes Time In: 1315 Time Out: [...] normal. Labs: Recent Labs 01/21/25 0243 01/22/25 04101/23/25 0430 NA 135* 132* 140 K 4.3 4.4 3.4* CL 96* 94* 102 CO2 25 BUN 46* 53* 22 CREATININE 2.99* 4.18* 2.34* GLUCOSE 60* 70* 80 CALCIUM 9.9 9.8 9.4 PROT -- 7.6 -- BILITOT -- 0.9 -- ALKPHOS -- 274* -- AST -- 51* -- ALT -- 44* -- Recent Labs 01/22/25418 01/22/25 1539 01/23/25 0430 WBC 10.6 10.6 [...] 12/11- sputum cx- MSSA, resp ila Previous ([facility]) 11/28- L pleural fluid- negative 11/16- abd [...] be of moderate complexity. Mikala MORAN PA-C [facility] Infectious Disease Images from the [...] mL/kg) [I.V.:1484 (25.2 mL/kg); Blood:216; NG/GT:717] Out: 5 (35.6 mL/kg) [Stool:40] Weight: 58.9 kg No [...] mmol/L 102 94* 96* CO2 mmol/L 25 24 BUN mg/dL 22 53* 46* [...] Active Problem List Diagnosis Anemia Paroxysmal A-fib ([facility]) ([facility]) HTN (hypertension) ESRD on hemodialysis (CMS/HCC) (HCC) [...] failure with hypoxia (HCC) [J96.01] Tracheostomy care ([facility]) [Z43.0] Pulmonary embolism (HCC) jail (current) use of antibiotics Complication of tracheostomy (CMS/HCC) (HCC) BRBPR (bright red blood per rectum) I have personally performed a face to face diagnostic evaluation on this patient. I have reviewed and agree with the care plan as documented above by my APPLICATIONS MANAGER/PA-C. I personally discussed the review of systems [...] the wound. I evaluated the patient on 4/29 Hb 8 ->7.3, PLT 345, INR now [...] []SW/TCC []Other Total Care Time (combined between APPLICATIONS MANAGER/PA-C and myself) throughout the day today was >= 35 minutes (including chart/data review/analysis, care coordination, and [id number]-[id number] encounter), and was spent discussing/counseling the patient/family regarding the care plan for this patient. I examined the patient independently. I reviewed relevant data myself and may have also done so in the context of team rounds. A full chart review was performed. Ivett Buckley MD Division of Trauma Department of Surgery [facility] Images from the original note were not [...] sodium chloride 0.9 % 100 mL IVPB (Add-[place]), 3,000 mg, IntraVENous, q12h, Steve Lassiter MD, [...] +scattered ecchymoses Neuro: nonfocal Labs/Studies reviewed in [facility] ASSESSMENT/PLAN: GIB - Hematochezia Chronic Anticoagulation [...] 59 year old male who presented to [facility] 01/19 after inadvertent removal of his tracheostomy. He was transferred to [facility] ICU for surgical evaluation. On arrival he [...] Vitals: BP MAP 127/71 (01/23/25 06) 87 (01/23/25 06) Arterial BP MAP Temp 36.1 C (97 F) (01/23/25 0400) Pulse 89 (01/23/25 06) Resp 14 (01/23/25 06) SpO2 97 % (01/23/25599) Weight 58.9 kg [...] Normal [] Scar/Lesion/Mass Inspection of teeth/lips/gums Dentition: [][place] Teeth []Dentures Lips/Gums: []Intact []Lesion Present Mucosa: [][place] []Moist []Dry Neck: External Appearance Overall Appearance: [...] 18.5* ABGs: No results for input(s): "PHART", "FCJ8VBB", "PO2ART", "ZEW3ZQZ", "SO2ART", "U3WAQDJE" in the last 72 hours. Lactic Acid: [...] Plan: Principal Problem: Complication of tracheostomy (CMS/HCC) ([facility]) Active Problems: Severe malnutrition (CMS/HCC) ([facility]) GI Bleed, worsened by Warfarin Non-bleeding duodenal [...] setting of GI bleed Disposition: Transfer to [facility] Cosigned by Darryn Higgins MD at 01/23/2025 10:56 AM EDT Associated attestation - Darryn Higgins MD - 01/23/2025 10:56 AM EDT I have personally seen the patient and examined along with the resident. I personally obtained the rfancis and relevent portions of the history and [...] Pulmonary and Critical Care Medicine Attending Pager #[phone] [facility] Respiratory Care Department Progress Note As [...] Respiratory in the care of this patient, [facility] [place] Nephrology Progress Note Mr. Jun Snyder is [...] concerns. Wellington Nicole MD 01/22/2025 3:30 PM [facility] [place] [address] [place] [address], [address] [place] [address] Office: [phone] Images from the original note were not included. [facility] - Infectious Diseases Advanced Practice Provider Progress Note Subjective: Following patient for sacral OM. Notes reviewed. Payaln had EGD 01/21 revealing non-bleeding duodenal ulcer. [...] cx- MSSA, resp ila 12/25- blood cx- / negative 12/14- sputum cx- MSSA, resp ila [...] 10/11- GI PCR- negative 10/03- blood cx- / negative 10/03- 4plex- RSV Lines: AVF PIV [...] wound debrided to bone on 01/02 at [facility] (Cx with E faecalis and Clostridium). [...] be of moderate complexity. Mikala MORAN PA-C [facility] Infectious Disease Speech-Language Pathology Spoke with the RN. Patient remains decanulated and doing well on Room Air. Patient is currently NPO for GI. Will defer dysphagia plan of care until patient is cleared to resume TF or a PO diet. Christina Limon MS, CCC/AUTOMOBILE REPAIR SERVICE ESTIMATOR Images from the original note were not [...] sodium chloride 0.9 % 100 mL IVPB (Add-Ashburn), 3,000 mg, IntraVENous, q12h, Steve Lassiter MD, [...] Steve Lassiter MD, 5 mg at 01/21/25 8549 prochlorperazine (Compazine) injection 5 mg, 5 mg, [...] Results from last 7 days Lab Units 01/22/2541801/21/25234701/21/25 1452 01/21/25 0908 01/21/25 0243 WBC AUTO [...] Active Problem List Diagnosis Anemia Paroxysmal A-fib ([facility]) ([facility]) HTN (hypertension) ESRD on hemodialysis ([facility]) ([facility]) IgA nephropathy determined by biopsy of kidney Diverticulosis Nonrheumatic aortic valve stenosis Calcification of abdominal aorta ([facility]) Missed vaccination due to patient refusal Tobacco abuse Alcohol use disorder in remission Atrial flutter, unspecified type ([facility]) RSV (acute bronchiolitis due to respiratory syncytial virus) Aortic stenosis Upper GI bleed S/P AVR Acute hypoxic respiratory failure ([facility]) Acute encephalopathy Pneumoperitoneum Gastric ulceration Severe malnutrition ([facility]) ([facility]) Pleural effusion Peritonitis due to fungus ([facility]) History of abdominal surgery Leg DVT (deep venous thromboembolism), acute, left ([facility]) Ischemic ulcer of toe of left foot, limited to breakdown of skin ([facility]) Tracheostomy dependence ([facility]) Leukocytosis Decubitus ulcer of sacral region, unstageable ([facility]) Pneumonia of both lungs due to methicillin susceptible Staphylococcus aureus (MSSA) ([facility]) Sacral osteomyelitis ([facility]) ([facility]) Acute respiratory failure with hypoxia ([facility]) [J96.01] Tracheostomy care ([facility]) [Z43.0] Pulmonary embolism ([facility]) jail (current) use of antibiotics Complication of tracheostomy ([facility]) ([facility]) I personally supervised the resident in the [...] of Trauma Department of Surgery [facility] ICU Progress Note Name: Jun Snyder : 1965(59 y.o.) Date: 01/22/25 Team: MICU Attending: Dr. Higgins Subjective: Hospital Summary: Mr Snyder is a 59 year old male who presented to [facility] 01/19 after inadvertent removal of his tracheostomy. He was transferred to [facility] ICU for surgical evaluation. On arrival he [...] Normal [] Scar/Lesion/Mass Inspection of teeth/lips/gums Dentition: [][place] Teeth []Dentures Lips/Gums: []Intact []Lesion Present Mucosa: [x][place] []Moist [x]Dry Neck: External Appearance Overall Appearance: [...] 24 hours- BMP: Recent Labs 01/20/25 0514 01/21/2524201/22/25418 NA 135* 135* 132* K 4.8 4.3 [...] 18.6* ABGs: No results for input(s): "PHART", "WVD5HHS", "PO2ART", "TSO4DGR", "SO2ART", "Q2QFCJTV" in the last 72 hours. Lactic Acid: [...] Pulmonary and Critical Care Medicine Attending Pager #[phone] [facility] Progress Note SUBJECTIVE: Jun Adrianna Lillian is a 59 y.o. 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 01/12/2025 Acute respiratory failure with hypoxia ([facility]) [J96.01] 01/08/2025 Tracheostomy care ([facility]) [Z43.0] 01/08/2025 Pulmonary embolism ([facility]) 01/08/2025 Sacral osteomyelitis ([facility]) ([facility]) 01/03/2025 Pneumonia of both lungs due to methicillin susceptible Staphylococcus aureus (MSSA) ([facility]) 01/01/2025 Leukocytosis 12/30/2024 Decubitus ulcer of sacral region, unstageable ([facility]) 12/30/2024 Peritonitis due to fungus ([facility]) 11/30/2024 History of abdominal surgery 11/30/2024 Leg DVT (deep venous thromboembolism), acute, left ([facility]) 11/30/2024 Ischemic ulcer of toe of left foot, limited to breakdown of skin ([facility]) 11/30/2024 Tracheostomy dependence ([facility]) 11/30/2024 Pleural effusion 11/28/2024 Gastric ulceration 2024 Atrial flutter, unspecified type ([facility]) 10/03/2024 RSV (acute bronchiolitis due to respiratory syncytial virus) 10/03/2024 Diverticulosis 10/08/2023 Nonrheumatic aortic valve stenosis 10/08/2023 Calcification of abdominal aorta ([facility]) 10/08/2023 Missed vaccination due to patient refusal 10/08/2023 Tobacco abuse 10/08/2023 Alcohol use disorder in remission 10/08/2023 Paroxysmal A-fib ([facility]) ([facility]) 08/18/2023 HTN (hypertension) 12/01/2022 ESRD on hemodialysis ([facility]) ([facility]) 10/26/2019 IgA nephropathy determined by biopsy of kidney 10/26/2019 Aortic stenosis 10/03/2024 Upper GI bleed 10/03/2024 S/P AVR 10/03/2024 Acute hypoxic respiratory failure ([facility]) 10/03/2024 Acute encephalopathy 10/03/2024 Pneumoperitoneum 10/03/2024 Anemia 12/30/2021 ASSESSMENT/PLAN: ESRD. HD MWF schedule Anemia. PRBC if Hb less than 7 GI bleed. Gastroenterology following Cindy Patel MD 01/21/2025 4:54 PM Family Communication Number Called: [phone] Name of Designated Family Transplant Surgeon: Omar son I spoke with the individual listed above Family Transplant Surgeon Updated on the Following: - Updated Omar [...] sodium chloride 0.9 % 100 mL IVPB (Add-Ashburn), 3,000 mg, IntraVENous, q12h, Steve Lassiter MD, [...] PA-C, Last Rate: 10 mL/hr at 01/21/25 0318, 8 mg/hr at 01/21/25 0318 [Held by [...] W AND/OR WO IV CONTRAST Ordering Provider: CURRY, , KEERTHI Reason For Exam: Bright red blood per [...] Coumadin, last dose suspected 01/18/[address] [facility] Acute Right occipital ICH- 10/22/24 ESRD [...] proceed with planned procedure. Parth VASQUEZ Gastroenterology [facility] Progress Note SUBJECTIVE: Jun Snyder [...] sodium chloride 0.9 % 100 mL IVPB (Add-Ashburn), 3,000 mg, IntraVENous, q12h, Steve Lassiter MD, [...] Problem List Diagnosis Date Noted Severe malnutrition ([facility]) ([facility]) 01/19/2025 Complication of tracheostomy ([facility]) ([facility]) 01/19/2025 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 01/12/2025 Acute respiratory failure with hypoxia ([facility]) [J96.01] 01/08/2025 Tracheostomy care ([facility]) [Z43.0] 01/08/2025 Pulmonary embolism ([facility]) 01/08/2025 Sacral osteomyelitis ([facility]) ([facility]) 01/03/2025 Pneumonia of both lungs due to methicillin susceptible Staphylococcus aureus (MSSA) ([facility]) 01/01/2025 Leukocytosis 12/30/2024 Decubitus ulcer of sacral region, unstageable ([facility]) 12/30/2024 Peritonitis due to fungus ([facility]) 11/30/2024 History of abdominal surgery 11/30/2024 Leg DVT (deep venous thromboembolism), acute, left ([facility]) 11/30/2024 Ischemic ulcer of toe of left foot, limited to breakdown of skin ([facility]) 11/30/2024 Tracheostomy dependence ([facility]) 11/30/2024 Pleural effusion 11/28/2024 Gastric ulceration 2024 Atrial flutter, unspecified type ([facility]) 10/03/2024 RSV (acute bronchiolitis due to respiratory syncytial virus) 10/03/2024 Diverticulosis 10/08/2023 Nonrheumatic aortic valve stenosis 10/08/2023 Calcification of abdominal aorta ([facility]) 10/08/2023 Missed vaccination due to patient refusal 10/08/2023 Tobacco abuse 10/08/2023 Alcohol use disorder in remission 10/08/2023 Paroxysmal A-fib ([facility]) ([facility]) 08/18/2023 HTN (hypertension) 12/01/2022 ESRD on hemodialysis ([facility]) ([facility]) 10/26/2019 IgA nephropathy determined by biopsy of kidney 10/26/2019 Aortic stenosis 10/03/2024 Upper GI bleed 10/03/2024 S/P AVR 10/03/2024 Acute hypoxic respiratory failure ([facility]) 10/03/2024 Acute encephalopathy 10/03/2024 Pneumoperitoneum 10/03/2024 Anemia 12/30/2021 ASSESSMENT/PLAN: ESRD. HD MWF schedule. HD today. See orders Anemia. PRBC if Hb less than 7 Later in the day dialysis had to be discontinued a little early due to GI bleed and other events. Will reassess tomorrow Cindy Patel MD 01/20/2025 5:52 PM Images from the original note were not included. OCCUPATIONAL THERAPY [facility] Initial Evaluation Name/MRN: Jair Snyder ([id number]) Evaluation Date: 01/20/2025 Date of : 1965 Admission Date: 01/19/2025 2:13 AM Age: 59 y.o. Room/Bed: [facility] A Discharge Recommendation: Detention Facility Other: DME [...] planned discharge. Admitting Diagnosis: Complication of tracheostomy ([facility]) ([facility]) Performance Deficits /Impairments: Decreased Functional Mobility, Decreased [...] History: Diagnosis Date Acute renal failure (ARF) ([facility]) 10/19/2019 Anemia 12/30/2021 Calcification of abdominal aorta ([facility]) 10/08/202309/[address] abd Diverticulosis 10/08/2023 ESRD on hemodialysis ([facility]) ([facility]) 10/26/2019 Hemodialysis patient ([facility]) ([facility]) HTN (hypertension) 12/01/2022 Hypertension IgA nephropathy IgA nephropathy determined by biopsy of kidney 10/26/2019 Missed vaccination due to patient refusal 10/08/2023 Has a number of non-scientific based beliefs which interfere with his understanding and acceptance of the medical benefit of vaccination. Nonrheumatic aortic valve stenosis 10/08/2023 Paroxysmal A-fib ([facility]) ([facility]) 08/18/2023 Tobacco abuse 10/08/2023 Past Surgical History: Past Surgical History: Procedure Laterality Date APPENDECTOMY CARDIAC CATHETERIZATION N/A 10/09/2024 Performed by Bob Watson MD at [facility] Cardiac Cath/EP Lab CARDIAC CATHETERIZATION Bilateral 11/01/2024 Performed by Bob Watson MD at [facility] Cardiac Cath/EP Lab CARDIAC CATHETERIZATION N/A 11/01/2024 Performed by Bob Watson MD at [facility] Cardiac Cath/EP Lab FISTULAGRAM (HISTORICAL) Left 09/15/2021 LEFT UPPER ARM HX AV FISTULA CREATION IR EMBOLIZATION 10/14/2024 IR EMBOLIZATION 10/14/2024 [facility] SPECIAL PROCEDURES IR FISTULAGRAM 08/07/2022 IR FISTULAGRAM 08/07/2022 [facility] IR IMAGING TONSILLECTOMY (HISTORICAL) Admission Diagnosis: Patient Active Problem List Diagnosis Date Noted Severe malnutrition ([facility]) ([facility]) 01/19/2025 Complication of tracheostomy ([facility]/H[facility]) ([facility]) 01/19/2025 jail (current) use of antibiotics 01/12/2025 Acute respiratory failure with hypoxia ([facility]) [J96.01] 01/08/2025 Tracheostomy care ([facility]) [Z43.0] 01/08/2025 Pulmonary embolism ([facility]) 01/08/2025 Sacral osteomyelitis ([facility]/HCC) ([facility]) 01/03/2025 Pneumonia of both lungs due to methicillin susceptible Staphylococcus aureus (MSSA) ([facility]) 01/01/2025 Leukocytosis 12/30/2024 Decubitus ulcer of sacral region, unstageable ([facility]) 12/30/2024 Peritonitis due to fungus ([facility]) 11/30/2024 History of abdominal surgery 11/30/2024 Leg DVT (deep venous thromboembolism), acute, left ([facility]) 11/30/2024 Ischemic ulcer of toe of left foot, limited to breakdown of skin ([facility]) 11/30/2024 Tracheostomy dependence ([facility]) 11/30/2024 Pleural effusion 11/28/2024 Gastric ulceration 2024 Atrial flutter, unspecified type ([facility]) 10/03/2024 RSV (acute bronchiolitis due to respiratory syncytial virus) 10/03/2024 Diverticulosis 10/08/2023 Nonrheumatic aortic valve stenosis 10/08/2023 Calcification of abdominal aorta ([facility]) 10/08/2023 Missed vaccination due to patient refusal 10/08/2023 Tobacco abuse 10/08/2023 Alcohol use disorder in remission 10/08/2023 Paroxysmal A-fib (CMS/HCC) ([facility]) 08/18/2023 HTN (hypertension) 12/01/2022 ESRD on hemodialysis ([facility]/H[facility]) ([facility]) 10/26/2019 IgA nephropathy determined by biopsy of [...] events, decreased short term memory, and decreased detention memory - Safety judgement: decreased awareness of [...] Poor historian. Per pt he came from [facility]. Pt unable to recall living situation prior to [facility], states "I've been in and out [...] of Care supervision is transferred to a [facility] Occupational Therapist. Goals and/or treatment plan was established in collaboration with patient/family/other representatives. Hospitalist Progress Note 01/20/2025 Subjective: Admit Date: 01/19/2025 PCP: Leilani Troncoso Room#: [id number] A BRIEF HOSPITAL COURSE: Patient is a 59 yo male with a PMH of Trach and peg, HTN, paroxysmal a-fib, R occipital ICH, Tobacco abuse, ARF - dialysis (TTS; LUE AVF), diverticulosis, IgA nephropathy, severe that presented to [facility] ED from a facility due to trach dislodgement. Per patient, was trying to disconnect his vent to transfer to another room but accidentally pulled out his tracheostomy. This event happened approximately 45 minutes before ED arrival. ED attempted to place tracheostomy tube back but were unsuccessful. Decision was made to transfer patient to [facility] ICU for further airway management and determine if replacement tracheostomy is needed. Was observed at [facility] ICU initially and transferred to [facility] on 01/20. Noted removal of trach. 01/20: [...] History: Diagnosis Date Acute renal failure (ARF) ([facility]) 10/19/2019 Anemia 12/30/2021 Calcification of abdominal aorta ([facility]) 10/08/202309/[address] abd Diverticulosis 10/08/2023 ESRD on hemodialysis ([facility]) ([facility]) 10/26/2019 Hemodialysis patient ([facility]) ([facility]) HTN (hypertension) 12/01/2022 Hypertension IgA nephropathy IgA [...] [phone] -- -- BMP: Recent Labs 01/19/252 01/20/25 0514 NA [...] and limit nighttime disturbances - DVT prophylaxis: [facility] 02-01-2025 Hospital course Narrative Discharge Summary Jun Snyder : 1965 ADMIT DATE: 01/19/2025 DISCHARGE DATE: 02/01/2025 PRIMARY CARE PHYSICIAN: Leilani Troncoso VISIT STATUS: Admission CODE STATUS: Full Code DISCHARGE DIAGNOSES: Principal Problem: Complication of tracheostomy (CMS/HCC) ([facility]) Active Problems: Severe malnutrition (CMS/HCC) ([facility]) BRBPR (bright red blood per rectum) HOSPITAL COURSE: Jun Snyder is a 59 y.o. male who who presented to [facility] 01/19 after inadvertent removal of his tracheostomy. He was transferred to [facility] ICU for surgical evaluation. On arrival he [...] HD successfully. hemodynamically stable. Transferred out to [facility] 01/27 ID following for sacral osteomyelitis, s/p wound debridement to bone on 01/02, cultures grew E faecalis and Clostridium, continue with renally dosed ampicillin sulbactam for 6 weeks course through 02/13/2025, needs tunneled line, status post IR CVC tunneled line on 01/29 Nephrology following, on dialysis AUTOMOBILE REPAIR SERVICE ESTIMATOR following PT/OT recommends SNF Patient will be [...] History: Diagnosis Date Acute renal failure (ARF) ([facility]) 10/19/2019 Anemia 12/30/2021 Calcification of abdominal aorta ([facility]) 10/08/202309/[address] abd Diverticulosis 10/08/2023 ESRD on hemodialysis ([facility]) ([facility]) 10/26/2019 Hemodialysis patient ([facility]) ([facility]) HTN (hypertension) 12/01/2022 Hypertension IgA nephropathy IgA nephropathy determined by biopsy of kidney 10/26/2019 Missed vaccination due to patient refusal 10/08/2023 Has a number of non-scientific based beliefs which interfere with his understanding and acceptance of the medical benefit of vaccination. Nonrheumatic aortic valve stenosis 10/08/2023 Paroxysmal A-fib ([facility]) ([facility]) 08/18/2023 Tobacco abuse 10/08/2023 Adult diet Dysphagia [...] Recent Labs 01/30/25 0047 01/31/25 0010 02/01/25 011 NA 135* 138 136 K 3.7 4.3 3.7 CL 99 99 99 CO2 23 27 26 BUN 10 15 7* CREATININE 2.56* 3.64* 2.39* GLUCOSE 88 87 87 CALCIUM 9.6 10.0 9.7 ANIONGAP 13 12 11 LIVER PROFILE: Recent Labs 01/31/250 02/01/25 011 AST 31 32 ALT 11 [...] by ID -S/p tunneled central line placement -AUTOMOBILE REPAIR SERVICE ESTIMATOR follow, dysphagia diet -PT OT DC recommend SNF SIGNIFICANT DIAGNOSTIC STUDIES: IR cvc tunneled central line placement [[id number]] Collected: 01/30/25 1437 Order Status: Completed Updated: 01/30/25 143 Narrative: [...] FL modified barium with video and speech [[id number]] Collected: 01/25/25 1328 Order Status: Completed Updated: [...] 3:12 PM EDT XR chest 1 view [[id number]] Collected: 01/24/25 0158 Order Status: Completed Updated: [...] pelvis angiogram w and/or wo IV contrast [[id number]] Collected: 01/20/251848 Order Status: Completed Updated: 01/20/251902 Narrative: Patient [...] 7:02 PM EDT XR chest 1 view [[id number]] Collected: 01/19/25 0615 Order Status: Completed Updated: 01/19/25616 Narrative: [facility] 1965 [id number] Exam Date/Time: 01/19/2025 05:58 Procedure: XR CHEST [...] 6:16 AM EDT XR chest 1 view [[id number]] Collected: 01/18/25 1242 Order Status: Completed Updated: [...] days. CONTINUE taking these medications epoetin rowan-epbx 33291 UNIT/ML injection Commonly known as: Retacrit Inject [...] Complexity: follow up within 7-14 calendar days (10788) [] Severe Complexity: follow up within 7 calendar days (96897) FOLLOW UP TESTING, PENDING RESULTS OR REFERRALS AT TRANSITIONAL CARE VISIT: [] Yes [] No PENDING STUDIES: DISPOSITION: Skilled Facility FACILITY/HOME CARE AGENCY NAME: Follow up with [facility] [address] [facility] [id number] Gurdeep Cruz MD [address], [place] [address] [place] [id number] Schedule an appointment as soon as possible [...] 02/01/2025, 10:29 AM documented in this encounter [facility] 01-29-2025 Telephone encount er Note Chart reviewed, patient appears to be sensitive to warfarin at this time and I wouldn't be able to guarantee INR remains less than 3, so opted to hold dose today. I canceled order. [facility] Work Phone: 01-29-2025 Miscellaneous Notes Formattin g of this note might be different from the original. Chart reviewed, patient appears to be sensitive to warfarin at this time and I wouldn't be able to guarantee INR remains less than 3, so opted to hold dose today. I canceled order. SWEETIE Singh with [facility] called to inform SAILAJA patient is scheduled to have a tunnel cath line tomorrow and Dr. Lira is inquiring if patient should hold his warfarin 0.[address] Lira does not want INR to go above to 3.0 tomorrow. Staffed with Natali Richter, EMMANUEL WHITT, she will cancel patient's warfarin dose tomorrow and SAILAJA will make adjustments as needed tomorrow. documented in this encounter [facility] 01-29-2025 Telephone encount er Note SWEETIE Singh with [facility] called to inform SAILAJA patient is scheduled to have a tunnel cath line tomorrow and Dr. Lira is inquiring if patient should hold his warfarin 0.[address] Lira does not want INR to go above to 3.0 tomorrow. Staffed with Natali Richter, EMMANUEL WHITT, she will cancel patient's warfarin dose tomorrow and SAILAJA will make adjustments as needed tomorrow. [facility] 01-26-2025 Hospital Discharg e instructions Kristine Donato RN - 01/26/2025 2:43 PM EDT Images from the original note were not included. Continuity of Care Form Patient Name: Jun Snyder : 1965 Admit date: 01/19/2025 Discharge date: 02/01/2025 Code Status Order: Full Code Advance Directives: Y Admitting Physician: Quiana Jeffery DO PCP: Leilani Troncoso Discharging Nurse: Kristine Donato RN Discharging Hospital Unit/Room#: T3-897/T3321 A Discharging Unit Emergency Contact: Extended Emergency Contact Information Primary Emergency Contact: LillianmOar givens Mobile Relation: Child Secondary Emergency Contact: Toma Mcneil Mobile Relation: Partner Past Surgical History: Past Surgical History: Procedure Laterality Date APPENDECTOMY CARDIAC CATHETERIZATION N/A 10/09/2024 Performed by Bob Watson MD at [facility] Cardiac Cath/EP Lab CARDIAC CATHETERIZATION Bilateral 11/01/2024 Performed by Bob Watson MD at [facility] Cardiac Cath/EP Lab CARDIAC CATHETERIZATION N/A 11/01/2024 Performed by Bob Watson MD at [facility] Cardiac Cath/EP Lab COLONOSCOPY N/A 01/24/2025 Performed by Chadd Davis MD at [facility] ENDOSCOPY FISTULAGRAM (HISTORICAL) Left 09/15/2021 LEFT UPPER ARM HX AV FISTULA CREATION IR EMBOLIZATION 10/14/2024 IR EMBOLIZATION 10/14/2024 [facility] SPECIAL PROCEDURES IR FISTULAGRAM 08/07/2022 IR FISTULAGRAM 08/07/2022 [facility] IR IMAGING TONSILLECTOMY (HISTORICAL) Immunization History: Immunization History Administered Date(s) Administered Hep B, Unspecified 11/15/2019, 12/19/2019, 01/19/2020, 05/20/2020 Active Problems: Medical Problems Problem List * (Principal) Complication of tracheostomy (CMS/HCC) (HCC) Paroxysmal A-fib (CMS/HCC) (HCC) HTN (hypertension) ESRD on hemodialysis (CMS/HCC) ([facility]) IgA nephropathy determined by biopsy of kidney Diverticulosis Nonrheumatic aortic valve stenosis Calcification of abdominal aorta ([facility]) Overview Signed 10/08/2023 4:44 PM by Jr [...] (CMS/HCC) (HCC) Acute respiratory failure with hypoxia ([facility]) [J96.01] Tracheostomy care ([facility]) [Z43.0] Pulmonary embolism (HCC) jail (current) use of antibiotics Anemia Aortic stenosis [...] Total assistance Toileting Total assistance Feeding Independent Check Out Clerk Independent Med Delivery yes Wound Care Documentation and Therapy: Wound/Incision 11/13/24 Pressure Injury Sacrum (Active) Wound Image 01/19/25 0500 Site Assessment [place];Red 01/26/25 1200 Mahnaz-Wound Assessment Intact 01/26/25 0355 [...] Date: 01/21/25 Discharging to Facility/ Agency Name: [facility] Address: [address] [place], [place] [address] Fax: Dialysis Facility (if applicable) Name: Address: Dialysis Schedule: MWF Phone: Fax: Orthotic Fitter/Principal Trainer signature: ICIAN SECTION Name: Jun Snyder Prognosis: fair Condition at Discharge: stable Rehab Potential (if transferring to Rehab): fair Recommended Labs or Other Treatments After Discharge: cbc,cmp, PT/INR for warfarin, C/W Ampicillin-Sulbactam till 02/13, F/U with ID The individual is being admitted to a nursing facility directly from an [facility] or a unit of a [facility] that is not operated by or licensed by [facility] under section 5119.14 or 5160-3-15.1 5 The individual requires the level of services provided by a nursing facility for the condition for which he or she was treated in the hospital and, Physician Certification: I certify the above information and transfer of Jun Snyder is necessary for the continuing treatment of the diagnosis listed and that he requires halfway facility for less than 30 days. Update Admission H&P: No change in H&P PHYSICIAN SIGNATURE: documented in this encounter [facility] 01-24-2025 Procedure note Images from [...] Safety: The patient was placed on a residential monitor and vital signs, pulse oximetry, and [...] of the procedure. documented in this encounter [facility] 01-23-2025 Consult note Associated Order (s): INPATIENT CONSULT TO WOUND CARE PROVIDERS Images from the original note were not included. [facility] Wound Care Re-CONSULT Note Jun Snyder AGE: [...] diverticulosis, IgA nephropathy, severe that presented to [facility] ED from a facility due to trach [...] History: Diagnosis Date Acute renal failure (ARF) ([facility]) 10/19/2019 Anemia 12/30/2021 Calcification of abdominal aorta ([facility]) 10/08/202309/[address] abd Diverticulosis 10/08/2023 ESRD on hemodialysis ([facility]) ([facility]) 10/26/2019 Hemodialysis patient ([facility]) ([facility]) HTN (hypertension) 12/01/2022 Hypertension IgA nephropathy IgA nephropathy determined by biopsy of kidney 10/26/2019 Missed vaccination due to patient refusal 10/08/2023 Has a number of non-scientific based beliefs which interfere with his understanding and acceptance of the medical benefit of vaccination. Nonrheumatic aortic valve stenosis 10/08/2023 Paroxysmal A-fib ([facility]/HCC) (HCC) 08/18/2023 Tobacco abuse 10/08/2023 PAST SURGICAL HISTORY Past Surgical History: Procedure Laterality Date APPENDECTOMY CARDIAC CATHETERIZATION N/A 10/09/2024 Performed by Bob Watson MD at [facility] Cardiac Cath/EP Lab CARDIAC CATHETERIZATION Bilateral 11/01/2024 Performed by Bob Watson MD at [facility] Cardiac Cath/EP Lab CARDIAC CATHETERIZATION N/A 11/01/2024 Performed by Bob Watson MD at [facility] Cardiac Cath/EP Lab FISTULAGRAM (HISTORICAL) Left 09/15/2021 LEFT UPPER ARM HX AV FISTULA CREATION IR EMBOLIZATION 10/14/2024 IR EMBOLIZATION 10/14/2024 [facility] SPECIAL PROCEDURES IR FISTULAGRAM 08/07/2022 IR FISTULAGRAM [...] Medication Sig Dispense Refill epoetin rowan-epbx (Retacrit) 42362 UNIT/ML injection Inject 0.79 mL (7,900 Units) [...] to follow Recommend to follow up at [facility] Outpatient wound care center after hospital [...] Gill DO at 01/29/2025 4:37 PM EDT [facility] (SAILAJA) Inpatient Warfarin Consult HPI: Jun Snyder is a 59 y.o. male admitted on 01/19/2025 for Complication of tracheostomy ([facility]) ([facility]) [J95.00] Past Medical History: Diagnosis Date Acute renal failure (ARF) ([facility]) 10/19/2019 Anemia 12/30/2021 Calcification of abdominal aorta ([facility]) 10/08/202309/[address] abd Diverticulosis 10/08/2023 ESRD on hemodialysis ([facility]) ([facility]) 10/26/2019 Hemodialysis patient ([facility]) ([facility]) HTN (hypertension) 12/01/2022 Hypertension IgA nephropathy IgA nephropathy determined by biopsy of kidney 10/26/2019 Missed vaccination due to patient refusal 10/08/2023 Has a number of non-scientific based beliefs which interfere with his understanding and acceptance of the medical benefit of vaccination. Nonrheumatic aortic valve stenosis 10/08/2023 Paroxysmal A-fib ([facility]) ([facility]) 08/18/2023 Tobacco abuse 10/08/2023 Patient is on [...] plan for colonoscopy tomorrow, please notify [facility] when able to resume anticoagulation. 2. Monitor for s/s of bleeding and drug interactions. Will adjust dose accordingly 3. Will facilitate f/u at [facility] upon discharge Fatuma Odonnell RPh, PharmD [facility] is available daily [phone] via alooma. If no response on Hybrent Chat then please page [phone]. Images from the original note were not [...] AV replacement Supratherapeutic INR - [facility] [employer] valve in 09/2024 - coumadin held due [...] Palliative Care IDT members involved: Palliative Care Principal Trainer Discussed the plan of care with the [...] to have bile peritonitis" 11/28/24: transferred to [facility] He ended up developing sacral ulcer and osteomyelitis at [facility]. He then ended up dislodging his tracheostomy, and was brought to [facility] ED for further care. Palliative care consulted [...] the last several months, with being in [facility] and now back into the hospital. [...] and the size prior to going to [facility]. Discussed current treatment of this, including antibiotics. [...] status: SNF Work history: unknown status: unknown Druze annette: Non-Christianity ROS: See palliative care ROS/ESAS below; All other systems were reviewed and are negative. [place] Symptom Assessment Score [place] Score Pain Score (if non-verbal, add .FLACC [...] History: Diagnosis Date Acute renal failure (ARF) ([facility]) 10/19/2019 Anemia 12/30/2021 Calcification of abdominal aorta ([facility]) 10/08/202309/[address] abd Diverticulosis 10/08/2023 ESRD on hemodialysis ([facility]) ([facility]) 10/26/2019 Hemodialysis patient ([facility]) ([facility]) HTN (hypertension) 12/01/2022 Hypertension IgA nephropathy IgA nephropathy determined by biopsy of kidney 10/26/2019 Missed vaccination due to patient refusal 10/08/2023 Has a number of non-scientific based beliefs which interfere with his understanding and acceptance of the medical benefit of vaccination. Nonrheumatic aortic valve stenosis 10/08/2023 Paroxysmal A-fib ([facility]) ([facility]) 08/18/2023 Tobacco abuse 10/08/2023 Past Surgical History: Procedure Laterality Date APPENDECTOMY CARDIAC CATHETERIZATION N/A 10/09/2024 Performed by Bob Watson MD at [facility] Cardiac Cath/EP Lab CARDIAC CATHETERIZATION Bilateral 11/01/2024 Performed by Bob Watson MD at [facility] Cardiac Cath/EP Lab CARDIAC CATHETERIZATION N/A 11/01/2024 Performed by Bob Watson MD at [facility] Cardiac Cath/EP Lab FISTULAGRAM (HISTORICAL) Left 09/15/2021 LEFT UPPER ARM HX AV FISTULA CREATION IR EMBOLIZATION 10/14/2024 IR EMBOLIZATION 10/14/2024 [facility] SPECIAL PROCEDURES IR FISTULAGRAM 08/07/2022 IR FISTULAGRAM [...] Transition Note Initiated: yes Tex Cotto MD [facility] Anticoagulation Management Service (SAILAJA) Inpatient Warfarin Consult HPI: Jun Snyder is a 59 y.o. male admitted on 01/19/2025 for Complication of tracheostomy ([facility]) ([facility]) [J95.00] Past Medical History: Diagnosis Date Acute renal failure (ARF) ([facility]) 10/19/2019 Anemia 12/30/2021 Calcification of abdominal aorta ([facility]) 10/08/202309/[address] abd Diverticulosis 10/08/2023 ESRD on hemodialysis ([facility]) ([facility]) 10/26/2019 Hemodialysis patient ([facility]) ([facility]) HTN (hypertension) 12/01/2022 Hypertension IgA nephropathy IgA nephropathy determined by biopsy of kidney 10/26/2019 Missed vaccination due to patient refusal 10/08/2023 Has a number of non-scientific based beliefs which interfere with his understanding and acceptance of the medical benefit of vaccination. Nonrheumatic aortic valve stenosis 10/08/2023 Paroxysmal A-fib ([facility]) ([facility]) 08/18/2023 Tobacco abuse 10/08/2023 Patient is on [...] GIB and elevated INR, please notify [facility] when able to resume anticoagulation. 2. Monitor for s/s of bleeding and drug interactions. Will adjust dose accordingly 3. Will facilitate f/u at [facility] upon discharge Fatuma Odonnell RPh, PharmD SA[facility]JA is available daily [phone] via alooma. If no response on Hybrent Chat then please page [phone]. [facility] Anticoagulation Management Service ([facility]) Inpatient Warfarin Consult HPI: Jun Snyder is a 59 y.o. male admitted on 01/19/2025 for Complication of tracheostomy ([facility]) ([facility]) [J95.00] Past Medical History: Diagnosis Date Acute renal failure (ARF) ([facility]) 10/19/2019 Anemia 12/30/2021 Calcification of abdominal aorta ([facility]) 10/08/202309/[address] abd Diverticulosis 10/08/2023 ESRD on hemodialysis ([facility]) ([facility]) 10/26/2019 Hemodialysis patient ([facility]) ([facility]) HTN (hypertension) 12/01/2022 Hypertension IgA nephropathy IgA [...] Holding warfarin for GIB, please notify [facility] when able to resume anticoagulation. 2. Monitor for s/s of bleeding and drug interactions. Will adjust dose accordingly 3. Will facilitate f/u at [facility] upon discharge Darryn Wagner RPh, PharmD [facility] is available daily [phone] via alooma. If no response on Hybrent Chat then please page [phone]. Associated Order(s): IP CONSULT TO GENERAL SURGERY Images from the original note were not included. Department of General Surgery Surgical Service - [facility] Resident Consult Note 01/21/2025 CHIEF COMPLAINT: Chief [...] History: Diagnosis Date Acute renal failure (ARF) ([facility]) 10/19/2019 Anemia 12/30/2021 Calcification of abdominal aorta ([facility]) 10/08/202309/[address] abd Diverticulosis 10/08/2023 ESRD on hemodialysis ([facility]) ([facility]) 10/26/2019 Hemodialysis patient ([facility]) ([facility]) HTN (hypertension) 12/01/2022 Hypertension IgA nephropathy IgA nephropathy determined by biopsy of kidney 10/26/2019 Missed vaccination due to patient refusal 10/08/2023 Has a number of non-scientific based beliefs which interfere with his understanding and acceptance of the medical benefit of vaccination. Nonrheumatic aortic valve stenosis 10/08/2023 Paroxysmal A-fib ([facility]) ([facility]) 08/18/2023 Tobacco abuse 10/08/2023 Past Surgical History: Procedure Laterality Date APPENDECTOMY CARDIAC CATHETERIZATION N/A 10/09/2024 Performed by Bob Watson MD at [facility] Cardiac Cath/EP Lab CARDIAC CATHETERIZATION Bilateral 11/01/2024 Performed by Bob Watson MD at [facility] Cardiac Cath/EP Lab CARDIAC CATHETERIZATION N/A 11/01/2024 Performed by Bob Watson MD at [facility] Cardiac Cath/EP Lab FISTULAGRAM (HISTORICAL) Left 09/15/2021 LEFT UPPER ARM HX AV FISTULA CREATION IR EMBOLIZATION 10/14/2024 IR EMBOLIZATION 10/14/2024 [facility] SPECIAL PROCEDURES IR FISTULAGRAM 08/07/2022 IR FISTULAGRAM 08/07/2022 [facility] IR IMAGING TONSILLECTOMY (HISTORICAL) Medications Prior to Admission: Current Facility-Administered Medications Medication Dose Route Frequency Provider Last Rate Last Admin acetaminophen (Tylenol) tablet 1,000 mg 1,000 mg Oral q8h PRN Steve Lassiter MD 1,000 mg at 01/19/25 1540 ampicillin-sulbactam (Unasyn) 3,000 mg in sodium chloride 0.9 % 100 mL IVPB (Add-[place]burn) 3,000 mg IntraVENous q12h Steve Lassiter MD [...] Patient Unable To Answer (12/01/2024) Received from [facility] Overall Financial Resource Strain (CARDIA) Difficulty of Paying Living Expenses: Patient unable to answer Food Insecurity: Patient Unable To Answer (12/01/2024) Received from [facility] Hunger Vital Sign Worried About Running [...] No Stress Concern Present (01/18/2025) Received from [facility] [place] of Occupational Health - Occupational Stress Questionnaire Feeling of Stress : Not at all Social Connections: Patient Unable To Answer (12/01/2024) Received from [facility] Social Connection and Isolation Panel [NHANES] Frequency of Communication with Friends and Family: Patient unable to answer Frequency of Social Gatherings with Friends and Family: Patient unable to answer Attends Druze Services: Patient unable to answer Active Member [...] LIPASE IMAGING: POCT glucose meter Performed by: [facility], [address] [place] [address] CLIA ID: [id number] POCT glucose meter Performed by: [facility], [address] [place] [address] CLIA ID: [id number] POCT glucose meter Performed by: [facility], [address] [place] [address] CLIA ID: [id number] POCT glucose meter Performed by: [facility], [address] [place] [id number] CLIA ID: [id number] POCT glucose meter Performed by: [facility], [address] [place] [id number] CLIA ID: [id number] POCT glucose meter Performed by: [facility], [address] [place] [address] CLIA ID: [id number] ASSESSMENT AND PLAN: Jun Snyder is a [...] Brenton Goldstein MD General Surgery PGY-1 Pager #[phone] Cosigned by Tex Brush MD at 01/22/2025 6:07 AM EDT Associated attestation - Tex Brush MD - 01/22/2025 6:07 AM EDT ATTENDING ADDENDUM Active Diagnoses/Problems this Admission: Patient Active Problem List Diagnosis Anemia Paroxysmal A-fib ([facility]) ([facility]) HTN (hypertension) ESRD on hemodialysis ([facility]) ([facility]) IgA nephropathy determined by biopsy of kidney Diverticulosis Nonrheumatic aortic valve stenosis Calcification of abdominal aorta ([facility]) Missed vaccination due to patient refusal Tobacco abuse Alcohol use disorder in remission Atrial flutter, unspecified type ([facility]) RSV (acute bronchiolitis due to respiratory syncytial virus) Aortic stenosis Upper GI bleed S/P AVR Acute hypoxic respiratory failure ([facility]) Acute encephalopathy Pneumoperitoneum Gastric ulceration Severe malnutrition ([facility]/HCC) ([facility]) Pleural effusion Peritonitis due to fungus ([facility]) History of abdominal surgery Leg DVT (deep venous thromboembolism), acute, left ([facility]) Ischemic ulcer of toe of left foot, limited to breakdown of skin ([facility]) Tracheostomy dependence ([facility]) Leukocytosis Decubitus ulcer of sacral region, unstageable ([facility]) Pneumonia of both lungs due to methicillin susceptible Staphylococcus aureus (MSSA) ([facility]) Sacral osteomyelitis ([facility]/HCC) ([facility]) Acute respiratory failure with hypoxia ([facility]) [J96.01] Tracheostomy care ([facility]) [Z43.0] Pulmonary embolism ([facility]) jail (current) use of antibiotics Complication of tracheostomy ([facility]) ([facility]) I personally supervised the resident physician in [...] []Other Discussed/ With: [x]Patient/Family [x]RN []Consultants []Primary []/[facility] []Other I spent total time of 60 [...] of Trauma Department of Surgery [facility] Images from the original note were not [...] IgA nephropathy, severe who was admitted to [facility] 01/19 due to trach dislodgement. Since patient [...] Normal [] Scar/Lesion/Mass Inspection of teeth/lips/gums Dentition: [][place] Teeth []Dentures Lips/Gums: [x]Intact []Lesion Present Mucosa: [x][place] []Moist [x]Dry Neck: External Appearance Overall Appearance: [...] Plan: Principal Problem: Complication of tracheostomy (CMS/HCC) ([facility]) Active Problems: Severe malnutrition (CMS/HCC) ([facility]) Assessment: Rectal bleeding with concern for GIB [...] 2:43 PM I have personally performed a xdrq-tl-elci diagnostic evaluation on this patient on date of service 01/21/2025. History, labs, imaging studies, and electronic medical record have been reviewed by me. This note documented by the [x]housekeeping room inspector []ARMIN reflects my history, exam, and medical decision making. I have reviewed and agree with the care plan. Changes were made in the orders as necessary. ROS documentation was reviewed and negative unless otherwise stated in HPI. Additional pertinent interval history, ROS, and physical exam findings: Mr Snyder is a 59 year old male who presented to [facility] 01/19 after inadvertent removal of his tracheostomy. He was transferred to [facility] ICU for surgical evaluation. 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 This event happened approximately 45 minutes before ED arrival. ED attempted to place tracheostomy tube back but were unsuccessful. Decision was made to transfer patient to [facility] ICU for further airway management and determine if replacement tracheostomy is needed. Patient was admitted to the MICU-01/19 where he was evaluated by general surgery for re-do tracheostomy and determined to be saturating appropriately on room air without need for re-placement. 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 The MICU is consulted now for [...] History: Diagnosis Date Acute renal failure (ARF) ([facility]) 10/19/2019 Anemia 12/30/2021 Calcification of abdominal aorta ([facility]) 10/08/202309/[address] abd Diverticulosis 10/08/2023 ESRD on hemodialysis ([facility]) ([facility]) 10/26/2019 Hemodialysis patient ([facility]) ([facility]) HTN (hypertension) 12/01/2022 Hypertension IgA nephropathy IgA [...] 10/09/2024 Performed by Bob Watson MD at [facility] Cardiac Cath/EP Lab CARDIAC CATHETERIZATION Bilateral 11/01/2024 Performed by Bob Watson MD at [facility] Cardiac Cath/EP Lab CARDIAC CATHETERIZATION N/A 11/01/2024 Performed by Bob Watson MD at [facility] Cardiac Cath/EP Lab FISTULAGRAM (HISTORICAL) Left 09/15/2021 LEFT UPPER ARM HX AV FISTULA CREATION IR EMBOLIZATION 10/14/2024 IR EMBOLIZATION 10/14/2024 [facility] SPECIAL PROCEDURES IR FISTULAGRAM 08/07/2022 IR FISTULAGRAM [...] No Stress Concern Present (01/18/2025) Received from [facility] [place] of Occupational Health - Occupational Stress Questionnaire Feeling of Stress : Not at all Social Connections: Patient Unable To Answer (12/01/2024) Received from [facility] Social Connection and Isolation Panel [NHANES] Frequency of Communication with Friends and Family: Patient unable to answer Frequency of Social Gatherings with Friends and Family: Patient unable to answer Attends Druze Services: Patient unable to answer Active Member of Clubs or Organizations: Patient unable to answer Attends Club or Organization Meetings: Patient unable to answer Marital Status: Patient unable to answer Intimate Partner Violence: Patient Unable To Answer (11/28/2024) Received from [facility] Domestic Abuse Assessment Do you feel safe in your relationships at home?: Unable to assess Physical Abuse: Unable to assess [facility] Domestic Abuse - Type of Abuse: Not on file [facility] Domestic Abuse - Time Frame: Not on file [facility] Domestic Abuse - Signs and Symptoms: Not on file Verbal Abuse: Unable to assess [facility] Domestic Abuse - Reported To: Not on file Housing Stability: Patient Unable To Answer (12/01/2024) Received from [facility] Housing Stability Vital Sign Unable to Pay for Housing in the Last Year: Patient unable to answer Number of Times Moved in the Last Year: 0 Homeless in the Last Year: Patient unable to answer Allergies Allergen Reactions Lisinopril Swelling and Angioedema Prior to Admission medications Medication Sig Start Date End Date Taking? Authorizing Provider epoetin rowan-epbx (Retacrit) 47200 UNIT/ML injection Inject 0.79 mL (7,900 Units) [...] Normal [] Scar/Lesion/Mass Inspection of teeth/lips/gums Dentition: [][place] Teeth []Dentures Lips/Gums: [x]Intact []Lesion Present Mucosa: [x][place] []Moist []Dry Neck: External Appearance Overall Appearance: [...] last 72 hours. CBC: Recent Labs 01/19/25 03401/19/25 0652 01/20/25 0514 01/20/25 0801 01/20/25 1302 WBC 11.6* 10.9* 10.5 -- -- HGB 9.1* 9.4* 6.6* 8.2* 8.2* HCT 29.1* 30.2* 21.3* 25.8* 25.7* PLT 404 416 279 -- -- MCV 87.4 87.8 88.4 -- -- RDW 18.5* 18.6* 18.3* -- -- ABGs: No results for input(s): "PHART", "JAQ6IAI", "PO2ART", "BRW6BYN", "SO2ART", "J3DWNLKS" in the last 72 hours. Lactic Acid: [...] Plan: Principal Problem: Complication of tracheostomy (CMS/HCC) ([facility]) Active Problems: Severe malnutrition (CMS/HCC) ([facility]) Assessment: Passage of Bright red blood per [...] normal BMI 18.5-24.9 Disposition: Remain on the [facility] Critical Care Time: Total critical care time [...] PM EDT I have personally performed a [id number] diagnostic evaluation on this patient on date of service 01/20/25. History, labs, imaging studies, and electronic medical record have been reviewed by me. This note documented by the []housekeeping room inspector []ARMIN reflects my history, exam, and medical [...] Sacral ulcer osteomyelitis on IV abx at [facility]- known patient History of Present Illness: 59 yo male with PMHx significant for ESRD on HD, HTN, and PAD who was admitted at [facility] 10/03-11/28/24 after presenting with chest pain, cough, [...] Pip-Tazo and Anidulafungin. He was transferred to [facility] on 11/28/24. There he was followed by our ID group and had had recurrent MSSA LRTI that was treated. Additionally, his sacral wound was debrided to bone on 01/02/25. Sacral wound Cx + E faecalis and Clostridium clostridioforme. He is to be on a course of Amp-Sulbactam x6 weeks through 02/13/25. He was discharged to SNF on 01/18. Patient presented to [facility] on 01/19 after self-dislodging tracheostomy. He was transferred to [facility] ICU for further airway management and to [...] History: Diagnosis Date Acute renal failure (ARF) ([facility]) 10/19/2019 Anemia 12/30/2021 Calcification of abdominal aorta ([facility]) 10/08/202309/[address] abd Diverticulosis 10/08/2023 ESRD on hemodialysis ([facility]) ([facility]) 10/26/2019 Hemodialysis patient ([facility]) ([facility]) HTN (hypertension) 12/01/2022 Hypertension IgA nephropathy IgA [...] 10/09/2024 Performed by Bob Watson MD at [facility] Cardiac Cath/EP Lab CARDIAC CATHETERIZATION Bilateral 11/01/2024 Performed by Bob Watson MD at [facility] Cardiac Cath/EP Lab CARDIAC CATHETERIZATION N/A 11/01/2024 Performed by Bob Watsno MD at [facility] Cardiac Cath/EP Lab FISTULAGRAM (HISTORICAL) Left 09/15/2021 LEFT UPPER ARM HX AV FISTULA CREATION IR EMBOLIZATION 10/14/2024 IR EMBOLIZATION 10/14/2024 [facility] SPECIAL PROCEDURES IR FISTULAGRAM 08/07/2022 IR FISTULAGRAM 08/07/2022 SB IR IMAGING TONSILLECTOMY (HISTORICAL) Current Medications: Current Facility-Administered Medications Medication Dose Route Frequency Provider Last Rate Last Admin acetaminophen (Tylenol) tablet 1,000 mg 1,000 mg Oral q8h PRN Steve Lassiter MD 1,000 mg at 01/19/25 1540 ampicillin-sulbactam (Unasyn) 3,000 mg in sodium chloride 0.9 % 100 mL IVPB (Add-Ashburn) 3,000 mg IntraVENous q12h Steve Lassiter MD [...] injection 40 mg 40 mg IntraVENous BID Steev Lassiter MD 40 mg at 01/20/25 0503 [...] Patient Unable To Answer (12/01/2024) Received from [facility] Hunger Vital Sign Worried About Running Out of Food in the Last Year: Patient unable to answer Ran Out of Food in the Last Year: Patient unable to answer Transportation Needs: No Transportation Needs (01/18/2025) Received from [facility] [place] Transportation Source Has lack of transportation kept you from medical appointments or from getting medications?: No Has lack of transportation kept you from meetings, work, or from getting things needed for daily living?: No Physical Activity: Not on file Stress: No Stress Concern Present (01/18/2025) Received from [facility] [place] of Occupational Health - Occupational Stress Questionnaire Feeling of Stress : Not at all Social Connections: Patient Unable To Answer (12/01/2024) Received from [facility] Social Connection and Isolation Panel [NHANES] Frequency of Communication with Friends and Family: Patient unable to answer Frequency of Social Gatherings with Friends and Family: Patient unable to answer Attends Druze Services: Patient unable to answer Active Member of Clubs or Organizations: Patient unable to answer Attends Club or Organization Meetings: Patient unable to answer Marital Status: Patient unable to answer Intimate Partner Violence: Patient Unable To Answer (11/28/2024) Received from [facility] Domestic Abuse Assessment Do you feel safe in your relationships at home?: Unable to assess Physical Abuse: Unable to assess [facility] Domestic Abuse - Type of Abuse: Not on file [facility] Domestic Abuse - Time Frame: Not on file [facility] Domestic Abuse - Signs and Symptoms: Not on file Verbal Abuse: Unable to assess [facility] Domestic Abuse - Reported To: Not on file Housing Stability: Patient Unable To Answer (12/01/2024) Received from [facility] Housing Stability Vital Sign Unable to [...] (97.3 F) Temporal 78 20 94 % 01/19/25200061 -- -- -- -- -- 01/19/251999 -- [...] slough L toes 1-4 with dry gangrene GAVIN CONNELL Neurological: General: No focal deficit present. Mental [...] wound debrided to bone on 01/02 at [facility] (Cx with E faecalis and Clostridium) [...] accounting for open encounter. Mikala MORAN PA-C [facility] Infectious Disease Cosigned by Gurdeep [...] gastrostomy tube placement, who presented to the [place] emergency room from [facility] on 01/19/2025 where he is admitted for IV antibiotics for multiple infected wounds including dry gangrene to the left foot and sacral ulcers. Patient accidentally pulled his tracheostomy and was therefore transferred to the emergency room. Patient transferred to [facility] for higher level of care. GI consult [...] throughout entire last hospitalization. On presentation to [place] 01/19/2025 hemoglobin was 9.1. This morning dropped to 6.6. No transfusion but repeat hemoglobin 3 hours later at 8.2. Currently getting dialysis. Reports he had a BM 5 minutes ago and he does not know what stools have looked like. He denies abdominal pain. No nausea, vomiting. Per patient girlfriend SNF has been flipping [id number] between Coumadin and heparin secondary to patient INR. Assume last dose of Coumadin to be 01/18/2025. History of appendectomy and PEG placement. Allergies: Lisinopril Current Medications: Current Facility-Administered Medications: acetaminophen (Tylenol) tablet 1,000 mg, 1,000 mg, Oral, q8h PRN, Steve Lassiter MD, 1,000 mg at 01/19/25 1540 ampicillin-sulbactam (Unasyn) 3,000 mg in sodium chloride 0.9 % 100 mL IVPB (Add-Ashburn), 3,000 mg, IntraVENous, q12h, Steve Lassiter MD, [...] Diagnosis Date Noted Anemia 12/30/2021 Paroxysmal A-fib ([facility]) ([facility]) 08/18/2023 HTN (hypertension) 12/01/2022 ESRD on hemodialysis ([facility]) ([facility]) 10/26/2019 IgA nephropathy determined by biopsy of kidney 10/26/2019 Diverticulosis 10/08/2023 Nonrheumatic aortic valve stenosis 10/08/2023 Calcification of abdominal aorta ([facility]) 10/08/2023 Missed vaccination due to patient refusal 10/08/2023 Tobacco abuse 10/08/2023 Alcohol use disorder in remission 10/08/2023 Atrial flutter, unspecified type ([facility]) 10/03/2024 RSV (acute bronchiolitis due to respiratory syncytial virus) 10/03/2024 Aortic stenosis 10/03/2024 Upper GI bleed 10/03/2024 S/P AVR 10/03/2024 Acute hypoxic respiratory failure ([facility]) 10/03/2024 Acute encephalopathy 10/03/2024 Pneumoperitoneum 10/03/2024 Gastric ulceration 2024 Severe malnutrition ([facility]) ([facility]) 01/19/2025 Pleural effusion 11/28/2024 Peritonitis due to fungus ([facility]) 11/30/2024 History of abdominal surgery 11/30/2024 Leg DVT (deep venous thromboembolism), acute, left ([facility]) 11/30/2024 Ischemic ulcer of toe of left foot, limited to breakdown of skin ([facility]) 11/30/2024 Tracheostomy dependence ([facility]) 11/30/2024 Leukocytosis 12/30/2024 Decubitus ulcer of sacral region, unstageable ([facility]) 12/30/2024 Pneumonia of both lungs due to methicillin susceptible Staphylococcus aureus (MSSA) ([facility]) 01/01/2025 Sacral osteomyelitis ([facility]) ([facility]) 01/03/2025 Acute respiratory failure with hypoxia ([facility]) [J96.01] 01/08/2025 Tracheostomy care ([facility]) [Z43.0] 01/08/2025 Pulmonary embolism ([facility]) 01/08/2025 jail (current) use of antibiotics 01/12/2025 Resolved Ambulatory Problems Diagnosis Date Noted Acute renal failure (ARF) ([facility]) 10/19/2019 New onset a-fib ([facility]) ([facility]) 08/16/2023 Pulmonary embolism ([facility]) 10/03/2024 Past Medical History: Diagnosis Date Hemodialysis patient ([facility]) ([facility]) Hypertension IgA nephropathy Past Surgical History: Social [...] Patient Unable To Answer (12/01/2024) Received from [facility] Overall Financial Resource Strain (CARDIA) Difficulty of Paying Living Expenses: Patient unable to answer Food Insecurity: Patient Unable To Answer (12/01/2024) Received from [facility] Hunger Vital Sign Worried About Running Out of Food in the Last Year: Patient unable to answer Ran Out of Food in the Last Year: Patient unable to answer Transportation Needs: No Transportation Needs (01/18/2025) Received from [facility] Transportation Source Has lack of transportation kept you from medical appointments or from getting medications?: No Has lack of transportation kept you from meetings, work, or from getting things needed for daily living?: No Physical Activity: Not on file Stress: No Stress Concern Present (01/18/2025) Received from [facility] [place] of Occupational Health - Occupational Stress Questionnaire Feeling of Stress : Not at all Social Connections: Patient Unable To Answer (12/01/2024) Received from [facility] Social Connection and Isolation Panel [NHANES] Frequency of Communication with Friends and Family: Patient unable to answer Frequency of Social Gatherings with Friends and Family: Patient unable to answer Attends Druze Services: Patient unable to answer Active Member of Clubs or Organizations: Patient unable to answer Attends Club or Organization Meetings: Patient unable to answer Marital Status: Patient unable to answer Intimate Partner Violence: Patient Unable To Answer (11/28/2024) Received from [facility] Domestic Abuse Assessment Do you feel safe in your relationships at home?: Unable to assess Physical Abuse: Unable to assess [facility] Domestic Abuse - Type of Abuse: Not on file [facility] Domestic Abuse - Time Frame: Not on file [facility] Domestic Abuse - Signs and Symptoms: Not on file Verbal Abuse: Unable to assess [facility] Domestic Abuse - Reported To: Not on file Housing Stability: Patient Unable To Answer (12/01/2024) Received from [facility] Housing Stability Vital Sign Unable [...] Coumadin, last dose suspected 01/18/[address] [facility] Acute Right occipital ICH- 10/22/24 ESRD [...] 59 y.o. male with who presented to [facility] as transfer for trach dislodgment. Palliative Care [...] RD, LD on 01/20/25 at 7:18 AM. [facility] [place] [facility] Consult Note Consults HPI The patient [...] History: Diagnosis Date Acute renal failure (ARF) ([facility]) 10/19/2019 Anemia 12/30/2021 Calcification of abdominal aorta ([facility]) 10/08/202309/[address] abd Diverticulosis 10/08/2023 ESRD on hemodialysis ([facility]) ([facility]) 10/26/2019 Hemodialysis patient ([facility]) ([facility]) HTN (hypertension) 12/01/2022 Hypertension IgA nephropathy IgA nephropathy determined by biopsy of kidney 10/26/2019 Missed vaccination due to patient refusal 10/08/2023 Has a number of non-scientific based beliefs which interfere with his understanding and acceptance of the medical benefit of vaccination. Nonrheumatic aortic valve stenosis 10/08/2023 Paroxysmal A-fib ([facility]) ([facility]) 08/18/2023 Tobacco abuse 10/08/2023 Social History Socioeconomic [...] Patient Unable To Answer (12/01/2024) Received from [facility] Hunger Vital Sign Worried About Running Out of Food in the Last Year: Patient unable to answer Ran Out of Food in the Last Year: Patient unable to answer Transportation Needs: No Transportation Needs (01/18/2025) Received from [facility] Transportation Source Has lack of transportation kept you from medical appointments or from getting medications?: No Has lack of transportation kept you from meetings, work, or from getting things needed for daily living?: No Physical Activity: Not on file Stress: No Stress Concern Present (01/18/2025) Received from [facility] [place] of Occupational Health - Occupational Stress Questionnaire Feeling of Stress : Not at all Social Connections: Patient Unable To Answer (12/01/2024) Received from [facility] Social Connection and Isolation Panel [NHANES] Frequency of Communication with Friends and Family: Patient unable to answer Frequency of Social Gatherings with Friends and Family: Patient unable to answer Attends Druze Services: Patient unable to answer Active Member of Clubs or Organizations: Patient unable to answer Attends Club or Organization Meetings: Patient unable to answer Marital Status: Patient unable to answer Intimate Partner Violence: Patient Unable To Answer (11/28/2024) Received from [facility] Domestic Abuse Assessment Do you feel safe in your relationships at home?: Unable to assess Physical Abuse: Unable to assess [facility] Domestic Abuse - Type of Abuse: Not on file [facility] Domestic Abuse - Time Frame: Not on file [facility] Domestic Abuse - Signs and Symptoms: Not on file Verbal Abuse: Unable to assess [facility] Domestic Abuse - Reported To: Not on file Housing Stability: Patient Unable To Answer (12/01/2024) Received from [facility] Housing Stability Vital Sign Unable to [...] sodium chloride 0.9 % 100 mL IVPB (Add-Ashburn), 3,000 mg, IntraVENous, Daily, Steve Lassiter MD [...] injection 40 mg, 40 mg, IntraVENous, BID, Steev Lassiter MD, 40 mg at 01/19/25 1540 [...] CHLORIDE mmol/L 95* 95* 93* CO2 mmol/L BUN mg/dL 80* 64* 117* CREATININE mg/dL [...] airway management needs. Maintain NPO status per AUTOMOBILE REPAIR SERVICE ESTIMATOR recommendations until airway stabilization; consider modification of HD orders if NPO persists beyond 24-48 hours impacting volume/nutrition Please message me through [employer] chat with any questions or concerns. Wellington Nicole MD 01/19/2025 4:13 PM [facility] [place] [address] [place] [address], [address] [place] [address] Office: [phone] Associated Order(s): IP CONSULT TO DIETITIAN; IP [...] EN only as sole source of nutrition. AUTOMOBILE REPAIR SERVICE ESTIMATOR was following while pt was at [facility]. AUTOMOBILE REPAIR SERVICE ESTIMATOR consulted inpatient and recommending strict NPO. RD [...] pt was receiving and tolerating while at [facility]. Will monitor tolerance of nutrition as initiated and increased to goal. Will continue to monitor AUTOMOBILE REPAIR SERVICE ESTIMATOR in the event that oral diet can [...] Accumulation: No significant fluid accumulation (per flowsheets) Pastoral Assistant Strength: Not Performed Nutrition Assessment: pt with [...] Prostat, pt was stabilized and transferred to [facility] for ongoing care, vent liberation and rehab, while at [facility] RD was following and pt was receiving Nepro @ 50mls/hr, pt was discharged from [facility] to SNF on 01/18/25, pt now presented to [facility] ED on 01/19/[address] [facility] due to trach dislodgement, pt stated he was trying to disconnect his vent to transfer to another room but accidentally pulled out his tracheostomy, event happened approximately 45 minutes before ED arrival, ED attempted to place tracheostomy tube back but was unsuccessful thus decision was made to transfer pt to [facility] ICU for further airway management and to [...] states he has been like this since [facility], pt was transferred to ICU for further management, Nephrology and wound care consults pending, AUTOMOBILE REPAIR SERVICE ESTIMATOR was also consulted and recommending strict NPO. In terms of nutrition pt remains NPO at this time, RD spoke with pt in room, no family/visitors present, pt states that he was only receiving nutrition via PEG INDUSTRIAL RELATIONS REPRESENTATIVE, states his goals are to 'eat ice [...] recommendations Nutrition Related Findings: Pt presented from [facility], prolonged admit at [facility] 10/03-11/28/24, discharged to [facility] and recently transferred to [facility] Orientation Level: Oriented to situation, Oriented [...] bedscale, 10/31: 200#, 11/28: 161#, 01/18: 142#) [place] Body Weight (lbs) (Calculated): 166 lbs [place] Body Weight (Kg) (Calculated): 75 kg % [place] Body Weight (Calculated): 78.2 % BMI (kg/m2) [...] Nutrition Dana El RD Contact: available via [employer] chat or *[phone] Associated Order(s): INPATIENT CONSULT TO WOUND CARE PROVIDERS Images from the original note were not included. [facility] Wound Care CONSULT Note Jun Snyder AGE: [...] diverticulosis, IgA nephropathy, severe that presented to [facility] ED from a facility due to trach dislodgement. Wound Care consulted for Pressure Injury sacrum and Ischemic ulcers to left toes" PAST MEDICAL HISTORY Past Medical History: Diagnosis Date Acute renal failure (ARF) ([facility]) 10/19/2019 Anemia 12/30/2021 Calcification of abdominal aorta ([facility]) 10/08/202309/[address] abd Diverticulosis 10/08/2023 ESRD on hemodialysis ([facility]) ([facility]) 10/26/2019 Hemodialysis patient ([facility]) ([facility]) HTN (hypertension) 12/01/2022 Hypertension IgA nephropathy IgA nephropathy determined by biopsy of kidney 10/26/2019 Missed vaccination due to patient refusal 10/08/2023 Has a number of non-scientific based beliefs which interfere with his understanding and acceptance of the medical benefit of vaccination. Nonrheumatic aortic valve stenosis 10/08/2023 Paroxysmal A-fib ([facility]) ([facility]) 08/18/2023 Tobacco abuse 10/08/2023 PAST SURGICAL HISTORY Past Surgical History: Procedure Laterality Date APPENDECTOMY CARDIAC CATHETERIZATION N/A 10/09/2024 Performed by Bob Watson MD at [facility] Cardiac Cath/EP Lab CARDIAC CATHETERIZATION Bilateral 11/01/2024 Performed by Bob Watson MD at [facility] Cardiac Cath/EP Lab CARDIAC CATHETERIZATION N/A 11/01/2024 Performed by Bob Watson MD at [facility] Cardiac Cath/EP Lab FISTULAGRAM (HISTORICAL) Left 09/15/2021 LEFT UPPER ARM HX AV FISTULA CREATION IR EMBOLIZATION 10/14/2024 IR EMBOLIZATION 10/14/2024 [facility] SPECIAL PROCEDURES IR FISTULAGRAM 08/07/2022 IR FISTULAGRAM [...] Medication Sig Dispense Refill epoetin rowan-epbx (Retacrit) 44743 UNIT/ML injection Inject 0.79 mL (7,900 Units) [...] to follow Recommend to follow up at [facility] wound care center after hospital [...] 4:05 PM EDT documented in this encounter [facility] 01-19-2025 History and physical note [...] diverticulosis, IgA nephropathy, severe that presented to [facility] ED from a facility due to trach dislodgement. Per patient, was trying to disconnect his vent to transfer to another room but accidentally pulled out his tracheostomy. This event happened approximately 45 minutes before ED arrival. ED attempted to place tracheostomy tube back but were unsuccessful. Decision was made to transfer patient to [facility] ICU for further airway management and determine [...] History: Diagnosis Date Acute renal failure (ARF) ([facility]) 10/19/2019 Anemia 12/30/2021 Calcification of abdominal aorta (HCC) 10/08/202309/[address] abd Diverticulosis 10/08/2023 ESRD on hemodialysis ([facility]) ([facility]) 10/26/2019 Hemodialysis patient ([facility]) ([facility]) HTN (hypertension) 12/01/2022 Hypertension IgA nephropathy IgA [...] 10/09/2024 Performed by Bob Watson MD at [facility] Cardiac Cath/EP Lab CARDIAC CATHETERIZATION Bilateral 11/01/2024 Performed by Bob Watson MD at [facility] Cardiac Cath/EP Lab CARDIAC CATHETERIZATION N/A 11/01/2024 Performed by Bob Watson MD at [facility] Cardiac Cath/EP Lab FISTULAGRAM (HISTORICAL) Left 09/15/2021 LEFT UPPER ARM HX AV FISTULA CREATION IR EMBOLIZATION 10/14/2024 IR EMBOLIZATION 10/14/2024 [facility] SPECIAL PROCEDURES IR FISTULAGRAM 08/07/2022 IR FISTULAGRAM [...] Patient Unable To Answer (12/01/2024) Received from [facility] Overall Financial Resource Strain (CARDIA) Difficulty of Paying Living Expenses: Patient unable to answer Food Insecurity: Patient Unable To Answer (12/01/2024) Received from [facility] Hunger Vital Sign Worried About Running Out of Food in the Last Year: Patient unable to answer Ran Out of Food in the Last Year: Patient unable to answer Transportation Needs: No Transportation Needs (01/18/2025) Received from [facility] Transportation Source Has lack of transportation kept you from medical appointments or from getting medications?: No Has lack of transportation kept you from meetings, work, or from getting things needed for daily living?: No Physical Activity: Not on file Stress: No Stress Concern Present (01/18/2025) Received from [facility] [place] of Occupational Health - Occupational Stress Questionnaire Feeling of Stress : Not at all Social Connections: Patient Unable To Answer (12/01/2024) Received from [facility] Social Connection and Isolation Panel [NHANES] Frequency of Communication with Friends and Family: Patient unable to answer Frequency of Social Gatherings with Friends and Family: Patient unable to answer Attends Druze Services: Patient unable to answer Active Member of Clubs or Organizations: Patient unable to answer Attends Club or Organization Meetings: Patient unable to answer Marital Status: Patient unable to answer Intimate Partner Violence: Patient Unable To Answer (11/28/2024) Received from [facility] Domestic Abuse Assessment Do you feel safe in your relationships at home?: Unable to assess Physical Abuse: Unable to assess [facility] Domestic Abuse - Type of Abuse: Not on file [facility] Domestic Abuse - Time Frame: Not on file [facility] Domestic Abuse - Signs and Symptoms: Not on file Verbal Abuse: Unable to assess [facility] Domestic Abuse - Reported To: Not on file Housing Stability: Patient Unable To Answer (12/01/2024) Received from [facility] Housing Stability Vital Sign Unable to Pay for Housing in the Last Year: Patient unable to answer Number of Times Moved in the Last Year: 0 Homeless in the Last Year: Patient unable to answer Allergies Allergen Reactions Lisinopril Swelling and Angioedema Prior to Admission medications Medication Sig Start Date End Date Taking? Authorizing Provider epoetin rowan-epbx (Retacrit) 29956 UNIT/ML injection Inject 0.79 mL (7,900 Units) [...] Normal [] Scar/Lesion/Mass Inspection of teeth/lips/gums Dentition: [][place] Teeth []Dentures Lips/Gums: []Intact []Lesion Present Mucosa: [][place] []Moist []Dry Neck: External Appearance Tracheostomy hole [...] 18.5* ABGs: No results for input(s): "PHART", "SBH3BNV", "PO2ART", "HXV2QQF", "SO2ART", "N5OATZKV" in the last 72 hours. Lactic Acid: [...] Plan: Principal Problem: Complication of tracheostomy (CMS/HCC) ([facility]) Assessment: Trach dislodgement Chest pain ESRD Chronic [...] PM EDT I have personally performed a [id number] diagnostic evaluation on this patient on date [...] to have bile peritonitis 11/28/24: transferred to [facility]. He continued on HD at [facility]. Reportedly had ongoing issues with delirium according to his partner, Toma who was at bedside and provided history. Developed severe sacral ulcer and sacral ostomyelitis at [facility]. He was progressing with [employer] and using a PMV. Has not done any capping trials. Was transferred to a facility in [place]; there he inadvertently dislodged his tracheostomy. He initially presented to the [facility] emergency dept. He was transferred to [facility] in case of emergetn airway compromise. Assessment: Trach dislodgement, high risk of respiratory failure Chronic respiratory failure due to failure of airway protection ESRD Sacral osteomyelitis s/p AVR Full Code Plan: Admit to MICU Close monitorign for airway compromise Restart abx for osteomyelitis FRANKLIN nielsen; MBSS Critical Care Time: 33 minutes Total critical care time caring for this patient with life threatening, unstable organ failure, including direct patient contact, management of life support systems, review of data including imaging and labs, discussions with other team members and physicians, excluding procedures. Electronically signed by Bruce Nguyen MD documented in this encounter [facility] 01-19-2025 Emergency department Note EMERGENCY [...] who presents to the emergency department From halfway facility for accidental dislodgment of his tracheostomy [...] nephropathy, hypertension, and currently being treated at halfway facility with IV antibiotics for multiple infected [...] History: Diagnosis Date Acute renal failure (ARF) ([facility]) 10/19/2019 Anemia 12/30/2021 Calcification of abdominal aorta ([facility]) 10/08/202309/[address] abd Diverticulosis 10/08/2023 ESRD on hemodialysis ([facility]) ([facility]) 10/26/2019 Hemodialysis patient ([facility]) ([facility]) HTN (hypertension) 12/01/2022 Hypertension IgA nephropathy IgA nephropathy determined by biopsy of kidney 10/26/2019 Missed vaccination due to patient refusal 10/08/2023 Has a number of non-scientific based beliefs which interfere with his understanding and acceptance of the medical benefit of vaccination. Nonrheumatic aortic valve stenosis 10/08/2023 Paroxysmal A-fib ([facility]) ([facility]) 08/18/2023 Tobacco abuse 10/08/2023 SURGICAL HISTORY Past Surgical History: Procedure Laterality Date APPENDECTOMY CARDIAC CATHETERIZATION N/A 10/09/2024 Performed by Bob Watson MD at [facility] Cardiac Cath/EP Lab CARDIAC CATHETERIZATION Bilateral 11/01/2024 Performed by Bob Watson MD at [facility] Cardiac Cath/EP Lab CARDIAC CATHETERIZATION N/A 11/01/2024 Performed by Bob Watson MD at [facility] Cardiac Cath/EP Lab FISTULAGRAM (HISTORICAL) Left 09/15/2021 LEFT UPPER ARM HX AV FISTULA CREATION IR EMBOLIZATION 10/14/2024 IR EMBOLIZATION 10/14/2024 [facility] SPECIAL PROCEDURES IR FISTULAGRAM 08/07/2022 IR FISTULAGRAM 08/07/2022 [facility] IR IMAGING TONSILLECTOMY (HISTORICAL) CURRENT MEDICATIONS Previous Medications EPOETIN ROWAN-EPBX (RETACRIT) 22455 UNIT/ML INJECTION Inject 0.79 mL (7,900 Units) [...] Patient Unable To Answer (12/01/2024) Received from [facility] Overall Financial Resource Strain (CARDIA) Difficulty of Paying Living Expenses: Patient unable to answer Food Insecurity: Patient Unable To Answer (12/01/2024) Received from [facility] Hunger Vital Sign Worried About Running [...] No Stress Concern Present (01/18/2025) Received from [facility] [place] of Occupational Health - Occupational Stress Questionnaire Feeling of Stress : Not at all Social Connections: Patient Unable To Answer (12/01/2024) Received from [facility] Social Connection and Isolation Panel [NHANES] Frequency of Communication with Friends and Family: Patient unable to answer Frequency of Social Gatherings with Friends and Family: Patient unable to answer Attends Druze Services: Patient unable to answer Active Member [...] nursing note reviewed. Exam conducted with a software engineer web applications present. Constitutional: General: He is not in [...] accidental dislodgment of his tracheostomy tube at halfway facility as described in the HPI. Reportedly [...] necessary. Dr. Ponce recommended ICU admission to [facility] for observation with possible replacement tracheostomy if needed. ICU at [facility] was consulted and I spoke with Dr. Nguyen regarding admission to their service. He agrees with this indication and patient admitted to [facility] ICU. Diagnoses as of 01/19/25 0300 Complication of tracheostomy (CMS/HCC) ([facility]) Medications - No data to display REVAL: [...] FINAL IMPRESSION 1. Complication of tracheostomy (CMS/HCC) ([facility]) DISPOSITION Admit 01/19/2025 03:00:18 AM PATIENT REFERRED [...] 01/19/25 0301 Pt arrived Via EMS from [facility]. Pt removed his trach which he is typically on 5L. 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 He is NPO and receiving IV antibiotics for the results of his blood cultures. Pt was recently transferred to [place] from [facility]. Pt arrived with a pressure of 88/52 and 96% on room air. RT and MD at bedside upon arrival. documented in this encounter [facility] 01-18-2025 History of Presen t illness Narrative [facility] documented in this encounter [facility] 01-17-2025 History of Presen t illness Narrative Seen at [facility] documented in this encounter [facility] 01-17-2025 History of Presen t illness Narrative [facility] documented in this encounter [facility] 01-16-2025 History of Presen t illness Narrative [facility] documented in this encounter [facility] 01-15-2025 History of Presen t illness Narrative Seen at [facility] documented in this encounter [facility] 01-15-2025 History of Presen t illness Narrative [facility] documented in this encounter [facility] 01-14-2025 History of Presen t illness [facility]arrative [facility] documented in this encounter [facility] 01-12-2025 History of Presen t illness Narrative [facility] documented in this encounter [facility] 01-12-2025 History of Presen t illness Narrative [facility]en at [facility] documented in this encounter [facility] 01-11-2025 History of Presen t illness Narrative [facility] documented in this encounter [facility] 01-11-2025 History of Presen t illness Narrative [facility]en at [facility] documented in this encounter [facility] 01-10-2025 History of Presen t illness Narrative [facility] documented in this encounter [facility] 01-09-2025 History of Presen t illness [facility]arrative [facility] documented in this encounter [facility] 01-09-2025 History of Presen t illness Narrative Seen at [facility] documented in this encounter [facility] 01-08-2025 History of Presen t illness Narrative [facility] documented in this encounter [facility] 01-08-2025 History of Presen t illness Narrative Seen at [facility] documented in this encounter [facility] 01-05-2025 History of Presen t illness Narrative Patient seen by me at [facility]. Documentation including history, exam and plan documented in [facility]. This encounter is for billing only. documented in this encounter [facility] 01-05-2025 History of Presen t illness Narrative [facility] 01/05 documented in this encounter [facility] 01-04-2025 History of Presen t illness Narrative Patient seen by me at [facility]. Documentation including history, exam and plan documented in [facility]. This encounter is for billing only. documented in this encounter [facility] 01-04-2025 History of Presen t illness Narrative [facility] 01/04 documented in this encounter [facility] 01-03-2025 History of Presen t illness Narrative Patient seen by me at [facility]. Documentation including history, exam and plan documented in [facility]. This encounter is for billing only. documented in this encounter [facility] 01-03-2025 History of Presen t illness Narrative Pt seen at [facility]. Complete documentation under [facility]'s EMR. documented in this encounter [facility] 01-02-2025 History of Presen t illness Narrative Pt seen at [facility]. Complete documentation under [facility]'s EMR. documented in this encounter [facility] 01-02-2025 History of Presen t illness Narrative Patient seen by me at [facility]. Documentation including history, exam and plan documented in [facility] EMR. This encounter is for billing only. documented in this encounter [facility] 01-01-2025 History of Presen t illness Narrative Pt seen at [facility]. Complete documentation under [facility]'s EMR. documented in this encounter [facility] 01-01-2025 History of Presen t illness Narrative Patient seen by me at [facility]. Documentation including history, exam and plan documented in [facility] EMR. This encounter is for billing only. documented in this encounter [facility] 01-01-2025 History of Presen t illness Narrative Subsequent visit today at [facility] documented in this encounter [facility] 12-30-2024 History of Presen t illness Narrative Pt seen at [facility]. Complete documentation under [facility] EMR. documented in this encounter [facility] 12-28-2024 History of Presen t illness Narrative Patient seen by me at [facility]. Complete documentation including history with assessment and plan were documented in [facility] EMR. This encounter is for billing only. documented in this encounter [facility] 12-27-2024 History of Presen t illness Narrative Patient seen by me at [facility]. Complete documentation including history with assessment and plan were documented in [facility] EMR. This encounter is for billing only. documented in this encounter [facility] 12-26-2024 History of Presen t illness Narrative Patient seen by me at [facility]. Complete documentation including history with assessment and plan were documented in [facility] EMR. This encounter is for billing only. documented in this encounter [facility] 12-22-2024 History of Presen t illness Narrative Patient seen by me at [facility] in [place]. Complete documentation including history with assessment and plan were documented in [facility] EMR. This encounter is for billing only. documented in this encounter [facility] 12-21-2024 History of Presen t illness Narrative Patient seen by me at [facility] in [place]. Complete documentation including history with assessment and plan were documented in [facility] EMR. This encounter is for billing only. documented in this encounter [facility] 12-20-2024 History of Presen t illness Narrative Patient seen by me at [facility] in [place]. Complete documentation including history with assessment and plan were documented in [facility] EMR. This encounter is for billing only. documented in this encounter [facility] 12-19-2024 History of Presen t illness Narrative Patient seen by me at [facility] in [place]. Complete documentation including history with assessment and plan were documented in [facility] EMR. This encounter is for billing only. documented in this encounter [facility] 12-18-2024 History of Presen t illness Narrative Patient seen by me at [facility] in [place]. Complete documentation including history with assessment and plan were documented in [facility] EMR. This encounter is for billing only. documented in this encounter [facility] 12-15-2024 History of Presen t illness Narrative [facility] documented in this encounter [facility] 12-14-2024 History of Presen t illness Narrative [facility] documented in this encounter [facility] 12-14-2024 Telephone encount er Note Patient is still at [facility]. I spoke to Karla, case work aide, and she stated that patient has a tentative discharge date on 12/25. He will be going to a facility after that. Karla is not sure which one. I will check back with her closer to that date. [facility] 12-14-2024 Miscellaneous Notes Formattin g of this note might be different from the original. Patient is still at [facility]. I spoke to Karla, case work aide, and she stated that patient has a tentative discharge date on 12/25. He will be going to a facility after that. Karla is not sure which one. I will check back with her closer to that date. Called and spoke with patients son to discuss scheduling hospital follow up appointment. Omar advised me that the patient will be in the hospital detention as a lot happened while he was hospitalized. Patient does not wish to schedule at this time. Thanks Attempted to call patient to schedule hospital follow up. Patients phone is restricted. Unable to lvm. Sent [employer] message. Thanks Will hold to contact patient s/p discharge. Thanks Pt remains admitted at this time. GI staff to contact pt for scheduling OV s/p discharge. Patient needs close follow up for repeat EGD for duodenal ulcer, had IR embolization of GDA. Currently in ICU. Thanks. documented in this encounter [facility] 12-13-2024 History of Presen t illness Narrative [facility] documented in this encounter [facility] 12-13-2024 Telephone encount er Note Called and spoke with patients son to discuss scheduling hospital follow up appointment. Omar advised me that the patient will be in the hospital detention as a lot happened while he was hospitalized. Patient does not wish to schedule at this time. Thanks [facility] 12-13-2024 Miscellaneous Notes Formattin g of this note might be different from the original. Called and spoke with patients son to discuss scheduling hospital follow up appointment. Omar advised me that the patient will be in the hospital detention as a lot happened while he was hospitalized. Patient does not wish to schedule at this time. Thanks Attempted to call patient to schedule hospital follow up. Patients phone is restricted. Unable to lvm. Sent [employer] message. Thanks Will hold to contact patient s/p discharge. Thanks Pt remains admitted at this time. GI staff to contact pt for scheduling OV s/p discharge. Patient needs close follow up for repeat EGD for duodenal ulcer, had IR embolization of GDA. Currently in ICU. Thanks. documented in this encounter [facility] 12-12-2024 History of Presen t illness Narrative [facility] documented in this encounter [facility] 12-11-2024 History of Presen t illness Narrative Seen at [facility] 12/11/24 documented in this encounter [facility] 12-11-2024 History of Presen t illness Narrative [facility] documented in this encounter [facility] 12-11-2024 Telephone encount er Note Attempted to call patient to schedule hospital follow up. Patients phone is restricted. Unable to lvm. Sent MyChart message. Thanks [facility] 12-11-2024 Miscellaneous Notes Formattin g [...] in ICU. Thanks. documented in this encounter [facility] 12-07-2024 History of Presen t illness Narrative [facility] documented in this encounter [facility] 12-07-2024 History of Presen t illness Narrative [facility] 12/07/24 documented in this encounter [facility] 12-06-2024 History of Presen t illness Narrative [facility] documented in this encounter [facility] 12-06-2024 History of Presen t illness Narrative [facility] 12/06/24 documented in this encounter [facility] 12-05-2024 History of Presen t illness Narrative [facility] documented in this encounter [facility] 12-04-2024 History of Presen t illness Narrative Follow-up visit [facility] at [facility] documented in this encounter [facility] 12-04-2024 History of Presen t illness Narrative [facility] 12/04/24 documented in this encounter [facility] 12-01-2024 History of Presen t illness Narrative [facility] 12/01/24 documented in this encounter [facility] 12-01-2024 History of Presen t illness Narrative I did a level 4 consult on this patient [facility]. In reviewing Dr. Garcia's note she noted acute systolic right heart failure related to and accompanied by pulmonary hypertension. She noted the need for midodrine. Dr. Chow waited on atrial flutter and atrial tachycardia. He was put on amiodarone and attempt was YG cardioversion, unsuccessful. The last electrocardiogram done at the [facility] showed atrial flutter. documented in this encounter [facility] 12-01-2024 History of Presen t illness Narrative [facility] billing documented in this encounter [facility] 11-30-2024 History of Presen t illness Narrative [facility] billing documented in this encounter [facility] 11-30-2024 History of Presen t illness Narrative [facility] 11/30/24 documented in this encounter [facility] 11-29-2024 History of Presen t illness Narrative [facility] 11/29/24 documented in this encounter [facility] 11-29-2024 History of Presen t illness Narrative [facility] billing documented in this encounter [facility] 11-28-2024 Telephone encount er Note Name of Caller: Herminia Contact Physician requesting Consult: Michelle Caruso APRN Patient Location (facility name, room, bed number): [facility], 116 Patient Diagnosis/Reason for Consult:SOB Provider being paged: Dr Nathan Time page was sent: [phone] Department of provider being paged: [facility] Page Content: routine consult requested. Message sent via Secure Chat [facility] 11-28-2024 Miscellaneous Notes Formattin g of this note might be different from the original. Name of Caller: Herminia Contact Physician requesting Consult: Michelle Caruso APRN Patient Location (facility name, room, bed number): [facility], 116 Patient Diagnosis/Reason for Consult:SOB Provider being paged: Dr Nathan Time page was sent: [phone] Department of provider being paged: [facility] Page Content: routine consult requested. Message sent via Secure Chat documented in this encounter [facility] 10-17-2024 Telephone encount er Note Will hold to contact patient s/p discharge. Thanks [facility] 10-17-2024 Miscellaneous Notes Formattin g [...] in ICU. Thanks. documented in this encounter [facility] 10-17-2024 Miscellaneous Notes Formattin g [...] Thanks. documented in this encounter [facility] 10-17-2024 Telephone encount er Note Pt remains admitted at this time. GI staff to contact pt for scheduling OV s/p discharge. [facility] 10-16-2024 Telephone encount er Note Patient needs close follow up for repeat EGD for duodenal ulcer, had IR embolization of GDA. Currently in ICU. Thanks. [employer] Phone: 10-16-2024 Miscellaneous Notes Formattin g of this note might be different from the original. Patient needs close follow up for repeat EGD for duodenal ulcer, had IR embolization of GDA. Currently in ICU. Thanks. documented in this encounter [facility] 10-12-2024 Note Formatting of this n ote is different from the original. Patient: Jair Snyder Procedure Summary Date: 10/12/24 Room / Location: [facility] Operating Room Anesthesia Start: 725 Anesthesia [...] once all PACU criteria has been met. [facility] 10-12-2024 Miscellaneous Notes Formattin g of this note is different from the original. Patient: Jair Snyder Procedure Summary Date: 10/12/24 Room / Location: [address] Operating Room Anesthesia Start: 725 Anesthesia [...] has been met. documented in this encounter [facility] 10-12-2024 Anesthesiology Postoperative evaluation and management note Patient: Jair Snyder Procedure Summary Date: 10/12/24 Room / Location: [address] Operating Room Anesthesia Start: 0726 Anesthesia Stop: 1127 Procedures: AORTIC VALVE REPLACEMENT (Chest) TRICUSPID REPLACEMENT [...] opportunity for questions and acknowledgement of understanding. [employer] Phone: 10-12-2024 Surgical operatio n note Patient: Jair Snyder Procedure Summary Date: 10/12/24 Room / Location: [facility] Operating Room Anesthesia Start: 725 Anesthesia [...] during the procedure: no complications. Staffing Performed: MUNICIPAL BOND TRADER Resident/MUNICIPAL BOND TRADER: Rudolph German CRNA Associated Order(s): Airway Airway Date/Time: 10/12/2024 7:38 AM Urgency: scheduled Airway not difficult General Information and Staff Patient location during procedure: Procedural Anesthesiologist: Vincent Wilson MD Resident/MUNICIPAL BOND TRADER: Rudolph German CRNA Performed: anesthesiologist Indications and [...] procedure well with no complications. Staffing Performed: MUNICIPAL BOND TRADER Resident/MUNICIPAL BOND TRADER: Rudolph eGrman CRNA Patient: Jair Snyder Procedure Information Date/Time: 10/12/24 0730 Procedures: AORTIC VALVE REPAIR, POSSIBLE REPLACEMENT (Chest) - 7:30 am, 5 hours TRICUSPID REPLACEMENT WITH RING (Chest) TRANSESOPHAGEAL ECHOCARDIOGRAM Location: [facility] OR [facility] Operating Room Surgeons: Luciano Montemayor MD Relevant [...] 12/30/2021: Anemia 10/08/2023: Calcification of abdominal aorta ([facility]) Comment: 09/[address] abd 10/08/2023: Diverticulosis 10/26/2019: ESRD on hemodialysis ([facility]) ([facility]) No date: Hemodialysis patient ([facility]) ([facility]) 12/01/2022: HTN (hypertension) No date: Hypertension No date: IgA nephropathy 10/26/2019: IgA nephropathy determined by biopsy of kidney 10/08/2023: Missed vaccination due to patient refusal Comment: Has a number of non-scientific based beliefs which interfere with his understanding and acceptance of the medical benefit of vaccination. 10/08/2023: Nonrheumatic aortic valve stenosis 08/18/2023: Paroxysmal A-fib ([facility]) ([facility]) 10/08/2023: Tobacco abuse Past Surgical History: Past Surgical History: No date: APPENDECTOMY 10/09/2024: CARDIAC CATHETERIZATION; N/A Comment: Performed by Bob Watson MD at [facility] Cardiac Cath/EP Lab 09/15/2021: FISTULAGRAM (HISTORICAL); Left Comment: LEFT UPPER ARM No date: HX AV FISTULA CREATION 08/07/2022: IR FISTULAGRAM Comment: IR FISTULAGRAM 08/07/2022 [facility] IR IMAGING No date: TONSILLECTOMY (HISTORICAL) Social [...] Additional Equipment Requests documented in this encounter [facility] 10-12-2024 Procedure anesthe jaki Narrative Procedure [...] Hunter Dove RN documented in this encounter [facility] [id number] Anesthesiology procedure note* Anesthesia Procedure Notes - [...] during the procedure: no complications. Staffing Performed: MUNICIPAL BOND TRADER Resident/MUNICIPAL BOND TRADER: Rudolph German CRNA [facility]01-16-2025 Anesthesiology procedure note* Anesthesia Procedure Notes - Rudolph German CRNA - 10/12/2024 7:49 AM ESTAssociated Order(s): Airway Airway Date/Time: 10/12/2024 7:38 AM Urgency: scheduled Airway not difficult General Information and Staff Patient location during procedure: Procedural Anesthesiologist: Vincent Wilson MD Resident/MUNICIPAL BOND TRADER: Rudolph German CRNA Performed: anesthesiologist Indications and [...] 21 Number of attempts at approach: [address] [facility]01-16-2025 Anesthesiology procedure note* Anesthesia Procedure Notes [...] procedure well with no complications. Staffing Performed: MUNICIPAL BOND TRADER Resident/MUNICIPAL BOND TRADER: Rudolph German CRNA [facility]01-16-2025 Anesthesiology Preoperative evaluation and management note* Anesthesia Preprocedure Evaluation - Vincent Wilson MD - 10/12/2024 6:56 AM EST Patient: Jair Snyder Procedure Information Date/Time: 10/12/24 0730 Procedures: AORTIC VALVE REPAIR, POSSIBLE REPLACEMENT (Chest) - 7:30 am, 5 hours TRICUSPID REPLACEMENT WITH RING (Chest) TRANSESOPHAGEAL ECHOCARDIOGRAM Location: [facility] OR Operating Room Surgeons: Luciano Montemayor MD Relevant Problems Cardio (+) Aortic stenosis (+) Atrial flutter, unspecified type (HCC) (+) Calcification of abdominal aorta (HCC) (+) HTN (hypertension) (+) Nonrheumatic aortic valve stenosis (+) Paroxysmal A-fib (CMS/HCC) (HCC) GI (+) Diverticulosis /Renal (+) ESRD on hemodialysis ([facility]) ([facility]) (+) IgA nephropathy determined by biopsy of kidney Past Medical History: Past Medical History: 10/19/2019: Acute renal failure (ARF) ([facility]) 12/30/2021: Anemia 10/08/2023: Calcification of abdominal aorta ([facility]) Comment: 09/[address] abd 10/08/2023: Diverticulosis 10/26/2019: ESRD on hemodialysis ([facility]) ([facility]) No date: Hemodialysis patient ([facility]) ([facility]) 12/01/2022: HTN (hypertension) No date: Hypertension No date: IgA nephropathy 10/26/2019: IgA nephropathy determined by biopsy of kidney 10/08/2023: Missed vaccination due to patient refusal Comment: Has a number of non-scientific based beliefs which interfere with his understanding and acceptance of the medical benefit of vaccination. 10/08/2023: Nonrheumatic aortic valve stenosis 08/18/2023: Paroxysmal A-fib ([facility]) ([facility]) 10/08/2023: Tobacco abuse Past Surgical History: Past Surgical History: No date: APPENDECTOMY 10/09/2024: CARDIAC CATHETERIZATION; N/A Comment: Performed by Bob Watson MD at [facility] Cardiac Cath/EP Lab 09/15/2021: FISTULAGRAM (HISTORICAL); Left Comment: LEFT UPPER ARM No date: HX AV FISTULA CREATION 08/07/2022: IR FISTULAGRAM Comment: IR FISTULAGRAM 08/07/2022 [facility] IR IMAGING No date: TONSILLECTOMY (HISTORICAL) Social [...] 10:45 AM Equipment Requests: Additional Equipment Requests [facility] [id number] History of Present illness Narrative* Jr Shah MD - 08/28/2024 3:15 PM EST Images from the original note were not included. [facility] - [address] [place] [id number] Dept: [phone] Dept Visit type: Established : 1965 Reason [...] months (around 02/26/2025) for [facility] f/u in [place]. Subjective Afib after admission 07/2023. ESRD on [...] On theother hand, a mechanical valve with detention OAC carries its own risks with a [...] none/quit. Pt would like to f/u in [place]. Was concerned about location and level of [...] History: Diagnosis Date Acute renal failure (ARF) ([facility]) 10/19/2019 Anemia 12/30/2021 Calcification of abdominal aorta ([facility]) 10/08/202309/[address] abd Diverticulosis 10/08/2023 ESRD on hemodialysis ([facility]) ([facility]) 10/26/2019 Hemodialysis patient ([facility]) ([facility]) HTN (hypertension) 12/01/2022 Hypertension IgA nephropathy IgA nephropathy determined by biopsy of kidney 10/26/2019 Missed vaccination due to patient refusal 10/08/2023 Has a number of non-scientific based beliefs which interfere with his understanding and acceptance of the medical benefit of vaccination. Nonrheumatic aortic valve stenosis 10/08/2023 Paroxysmal A-fib ([facility]) ([facility]) 08/18/2023 Tobacco abuse 10/08/2023 Social History Tobacco Use Smoking status: Every Day Current packs/day: 1.00 Types: Cigarettes Smokeless tobacco: Never Substance Use Topics Alcohol use: Not Currently Past Surgical History: Procedure Laterality Date APPENDECTOMY FISTULAGRAM (HISTORICAL) Left 09/15/2021 LEFT UPPER ARM HX AV FISTULA CREATION IR FISTULAGRAM 08/07/2022 IR FISTULAGRAM 08/07/2022 [facility] IR IMAGING TONSILLECTOMY (HISTORICAL) Family History Problem [...] Shah MD I, Jr Shah MD, provided [facility] Lillian ongoing care for their single serious or complex condition described above. I assume responsibility for the patient's ongoing medical care for thiscondition(s). documented in this [facility]12-02-2024 Evaluation + Plan note* Assessment & Plan Note - Jr Shah MD - 08/28/2024 1:07 PM EST Associated Problem(s): Alcohol use disorder in remission Says he is a "functioning alcoholic". Stopping drinking in 2020. -Recommend stay quit due to addiction and risk of bleeding. [facility] [id number] Evaluation + Plan note* Assessment & Plan Note - Jr Shah MD - 08/28/2024 1:07 PM ESTAssociated Problem(s): Tobacco abuse 1 ppd. Recommend complete cessation. -Recommend CT lung cancer screening. [facility] [id number] Miscellaneous Notes* Assessment & Plan Note - [...] PM EST Associated Problem(s): Paroxysmal A-fib (CMS/HCC) ([facility]) Paroxysmal. Infrequent episodes that he feels, does [...] ablation, watchman device, etc. documented in this [facility]12-02-2024 Evaluation + Plan note* Assessment & [...] which will need to be carefully considered. [id number] Evaluation + Plan note* Assessment & Plan Note - Jr Shah MD - 08/28/2024 1:01 PM ESTAssociated Problem(s): Paroxysmal A-fib (CMS/HCC) ([facility]) Paroxysmal. Infrequent episodes that he feels, does [...] see EP, discuss ablation, watchman device, etc. [facility] [id number] History of Present illness Narrative* Alan Barroso RN - 05/10/2024 2:38 PM EDT Dialysis center status inquiry form received from [facility]. Form completed and faxed back to ELIA Marin at [phone]. Patient was called 04/12/2024 but voicemail was full, letter was sent to please call the office at [phone] to complete intake. Referral was closed. Please have patient call the office to complete intake. JHONY Meier RN May 10, 2024 2:41 PM [facility] Tele[facility] encounter Note * Telephone Encounter - Lanie Luis - 04/12/2024 11:49 AM EDT I called patient to start the kidney referral intake process. Voicemail is full, sent a letter out. Lanie [facility]07-17-2024 Miscellaneous Notes* Telephone Encounter - Lanie Luis - 04/12/2024 11:49 AM EDT I called patient to start the kidney referral intake process. Voicemail is full, sent a letter out. Lanie [facility] Telephone encounter Note * Telephone Encounter - Tracie Chin RN - 02/14/2024 10:23 AM EDT Called LM with pt with central scheduling number. Advised to call to schedule echo. [id number] Miscellaneous Notes* Telephone Encounter - Tracie Chin RN - 02/14/2024 10:23 AM EDT Called LM with pt with central scheduling number. Advised to call to schedule echo. * Telephone Encounter - Dorcas Pabon - 02/12/2024 10:28 AM EDT Unable to contact patient - called and lvm and sent mychart message for echo [facility] documented in this [facility]05-18-2024 Telephone encounter Note* Telephone Encounter - Dorcas Pabon - 02/12/2024 10:28 AM EDT Unable to contact patient - called and lvm and sent mychart message for echo [facility]erred [place] [id number] Miscellaneous Notes* Telephone Encounter - Dorcas Pabon - 02/12/2024 10:28 AM EDT Unable to contact patient - called and lvm and sent mychart message for echo [facility] documented in this [facility]05-18-2024 Telephone encounter Note* Telephone Encounter - Dorcas Pabon - 02/12/2024 10:23 AM EDT Unable to contact patient to schedule CT lung screening - called and sent mychart message [facility] [id number] Miscellaneous Notes* Telephone Encounter - Dorcas Pabon - 02/12/2024 10:23 AM EDT Unable to contact patient to schedule CT lung screening - called and sent mychart message [facility] documented in this [facility]02-16-2024 Evaluation + Plan note* Assessment & Plan Note - DENIA Dumont CNP - 11/12/2023 4:50 PM EST Associated Problem(s): Tobacco abuse 1 ppd. Recommend complete cessation. Consider CT lung cancer screening. [facility] [id number] Miscellaneous Notes* Assessment & Plan Note - [...] * Assessment & Plan Note - DENIA Dumotn CNP - 11/12/2023 4:48 PM EST Associated [...] than just dialysis days. documented in this [facility]02-16-2024 Evaluation + Plan note* Assessment & Plan Note - DENIA Dumont CNP - 11/12/2023 4:48 PM EST Associated Problem(s): Calcification of abdominal aorta (HCC) Sep 2023, by chart review this is the only ASCVD finding. Utility of lipid- lowering agent controversial in ESRD and does not appear to be improved with moderate intensity statins. -expectant mgt [facility] [id number] Evaluation + Plan note* Assessment & Plan Note - DENIA Dumont CNP - 11/12/2023 4:48 PM ESTAssociated Problem(s): HTN (hypertension) Goal BP < 130/80 mmHg. BP today in office borderline. -continues on toprol XL -mgt per PCP and renal [facility]02-16-2024 Evaluation + Plan note* Assessment & [...] cardiac intervention that he is open to. [place] [id number] Evaluation + Plan note* Assessment & Plan [...] dose overall, rather than just dialysis days. [facility] [id number] History of Present illness Narrative* DENIA Dumont CNP - 11/12/2023 1:30 PM EST Images from the original note were not included. [facility] [address] [place] [address] [address] [facility] [address] Dept: [phone] Dept Loc: [phone] Visit type: Established : 1965 Reason for [...] is open to. 2. Paroxysmal A-fib (CMS/HCC) ([facility]) Assessment & Plan: Paroxysmal. Refer to Dr. [...] the other hand, a mechanical valve with detention OAC carries its own risks. Today: He [...] History: Diagnosis Date Acute renal failure (ARF) ([facility]) 10/19/2019 Anemia 12/30/2021 Calcification of abdominal aorta ([facility]) 10/08/202309/[address] abd Diverticulosis 10/08/2023 ESRD on hemodialysis ([facility]) ([facility]) 10/26/2019 Hemodialysis patient ([facility]) ([facility]) HTN (hypertension) 12/01/2022 Hypertension IgA nephropathy IgA [...] PM DENIA Dumont CNP documented in this [facility]02-05-2024 Telephone encounter Note* Telephone Encounter - Sydni Rodrigues - 11/01/2023 9:41 AM EST Called pt lmom for a return call to set up appt [facility] [id number] Miscellaneous Notes* Telephone Encounter - Sydni Rodrigues [...] 10/14/2023 7:58 AM EST Preferred contact number: [phone] Reason for Visit: Jun called in to cancel his appt this morning. He woke up and is very sick. Please contact him to reschedule. Urgency of Appointment: office visit documented in this [facility]01-22-2024 Telephone encounter Note* Telephone Encounter - Sydni Rodrigues - 10/18/2023 2:34 PM EST Called pt LMOM for a return call to set up appt [facility] [id number] Telephone encounter Note* Telephone Encounter - Sydni Rodrigues - 10/14/2023 8:56 AM EST Called pt LMOM for a return call to r/s appt [facility] [id number] Telephone encounter Note* Telephone Encounter - Regino Ortiz - 10/14/2023 7:58 AM EST Preferred contact number: [phone] Reason for Visit: Jun called in to cancel his appt this morning. He woke up and is very sick. Please contact him to reschedule. Urgency of Appointment: office visit [facility] [id number] Telephone encounter Note* Telephone Encounter - Darya Payne - 08/23/2023 1:47 PM EST 2nd attempt to schedule, no answer, left message. [facility] [id number] Miscellaneous Notes* Telephone Encounter - Darya Payne [...] 8:30 AM EST ----- Patient discharged from [facility]. Please assist with s/p hosp "[facility]," okay within the next ~week. Thanks! documented in this encounterSUniversity [facility]als [facility] [id number] Telephone encounter Note* Telephone Encounter - Darya Payne - 08/18/2023 2:13 PM EST Left message requesting a call back from the patient to schedule appointment. [facility] [id number] Telephone encounter Note* Telephone Encounter - Darya Payne - 08/18/2023 2:12 PM EST ----- Message from DENIA Dumont CNP sent at 08/18/2023 8:30 AM EST ----- Patient discharged from [facility]. Please assist with s/p hosp "[facility]," okay within the next ~week. Thanks! [facility] [id number] Emergency department Note* Mary Ann Meraz RN - 08/17/2023 3:11 PM EST Patient education given in regard to medications, as well as following-up with PCP. Patient given eliquis information packet, understanding well. Mary Ann Meraz RN 08/17/231510 [place] [id number] Emergency department Note* Mary Ann Meraz RN - 08/17/2023 3:11 PM EST Patient education given in regard to medications, as well as following-up with PCP. Patient given eliquis information packet, understanding well. Mary Ann Meraz RN 08/17/231510 * Dangelo Horne DO - 08/16/2023 6:16 PM EST Emergency Department Encounter [facility] ED Patient: Jun Snyder : 1965 Date [...] 08/16/2023 6:16 PM EST Emergency Department Encounter [facility] ED Patient: Jun Snyder : 1965 Date [...] CREATION IR FISTULAGRAM 08/07/2022 IR FISTULAGRAM 08/07/2022 [facility] IR IMAGING TONSILLECTOMY (HISTORICAL) Social History Socioeconomic [...] gross facial drooping. No obvious neurologic deficits. Pastoral Assistant strength symmetrical. Moves all 4 extremities spontaneously. [...] 364 ms QTC Interval 491 ms P Tiona degrees QRS Tiona 61 degrees T Wave Tiona -20 degrees UT Interval ms Radiographs: XR chest 1 view Final Result 1. Cardiomegaly. 2. No other acute findings. Report Dictated on Electronically Signed By: Justo Milan MD Electronically Signed Date/Time: 08/16/2023 6:42 PM EST : EKG: All EKG's areinterpreted by the Emergency Department Physician in the absence of a instrument lens inspector. see their note for interpretation of EKG. EMERGENCY DEPARTMENT COURSE and DIFFERENTIAL DIAGNOSIS/MDM: External Records Review: . Social Determinants of Health: . Jun Sndyer is a 57 y.o. male who presented [...] for new onset A-fib. Patient excepted to [facility]. Final Diagnosis: 1. New onset a-fib (CMS/HCC) ([facility]) Medications - No data to display Diagnoses as of 08/16/232129 New onset a-fib (CMS/HCC) ([facility]) CRITICAL CARE TIME CONSULTS: None PROCEDURES: Unless otherwise noted below, none Procedures DISPOSITION/PLAN Admit 08/16/2023 08:09:48 PM PATIENT REFERRED TO: No follow-up provider specified. DISCHARGE MEDICATIONS: New Prescriptions No medications on file @[facility]([id number]:LAST:1)@ (Please note: Portions of this note were completed with a voice recognition program. Efforts were made to edit the dictations but occasionally words and phrases are mis-transcribed.) Form [id number].[id number] Sha Granados PA-C [employer] Sha Granados PA-C 08/16/232129 documented in this [facility]11-21-2023 Hospital Discharge instructions* Discharge Instr - Other Orders* DENIA Lorenzo CNP - 08/17/2023 3:02 PM EST Please discontinue Labetalol and Caduet; see discharge medication list Next dialysis session is 08/18/23 as previously instructed * Attachments The following attachments cannot be sent through Care Everywhere. * Atrial Fibrillation (Libyan) * Going Home on Blood Thinners (Libyan) * Apixaban, ADULT (Libyan) documented in this [facility]11-21-2023 History of Present illness Narrative* Docras Chin, DENIA - SAMIA - 08/17/2023 11:00 AM EST Images from [...] Past Medical History: Diagnosis Date Hemodialysis patient ([facility]) (HCC) Hypertension IgA nephropathy LABS: CBC: Recent [...] Information Primary Emergency Contact: Alexx Snyder Address: [address] [place] [address] [facility] of [place] [employer] Relation: Child DENIA Lorenzo CNP Division of Hospitalist Medicine Inpatient Medical Services/[facility] Comment: Please note this report has been [...] reflects time of documentation. documented in this [facility]11-21-2023 Consult note* Rj Villela MD - 08/17/2023 10:16 AM ESTAssociated Order(s): IP CONSULT TO CARDIOLOGY [facility] CARDIOLOGY CONSULTATION Patient Name: Jun [...] left heart disease. Rj Villela M.D., F.A.C.C. Food Cart Attendant Chief, Division of Cardiac Imaging Clinical Environmental Health Technologist, [facility] Data Collection Cardiac Testin08/16/23 ECG 12-LEAD 08/17/2023 [...] a past medical history of Hemodialysis patient ([facility]/HCC) (HCC), Hypertension, and IgA nephropathy. He has [...] alert. Psychiatric: Mood and Affect: Mood normal. [employer] Work Phone: 1(275) 830-631011-21-2023 Consult note* Rj Villela MD - 08/17/2023 10:16 AM ESTAssociated Order(s): IP CONSULT TO CARDIOLOGY [facility] CARDIOLOGY CONSULTATION Patient Name: Jun Snyder : [...] left heart disease. Rj Villela M.D., F.A.C.C. Food Cart Attendant Chief, Division of Cardiac Imaging Clinical Environmental Health Technologist, [facility] Data Collection Cardiac Testin08/16/23 ECG 12-LEAD 08/17/2023 [...] and Affect: Mood normal. documented in this [facility]11-20-2023 History and physical note* Earlene Irving MD - 08/16/2023 8:38 PM EST Images from the original note were not included. History and Physical [facility] Jun Snyder : 1965 AGE 57 [...] WedAug 16, 2023 8:09 PM (Active) Physician High Risk Case Manager: Sha Granados PA-C, starting on WedAug 16, [...] him When he was getting dialysis his ambulatory technologist detected irregular rhythm suspected A-fib and referred [...] Past Medical History: Diagnosis Date Hemodialysis patient ([facility]) (HCC) Hypertension IgA nephropathy Past Surgical History: [...] 08/16/2023 364 QTC Interval 08/16/2023 491 QRS Tiona 08/16/2023 61 T Wave Tiona 08/16/2023 -20 SODIUM 08/16/2023 133 (L) POTASSIUM [...] QT Interval 364 QTC Interval 491 P Tiona QRS Tiona 61 T Wave Tiona -20 UT Interval Impression ATRIAL FIBRILLATION, V-RATE 88-139 INCOMPLETE [...] monitor him on telemetry asked cardiology to [facility] we will additionally request echocardiogram. He is not experiencing chest pain but he is a current smoker and I do not see a recent cardiac work-up in the computer EKG on admission did confirm atrial fibrillation but he is currently in sinus rhythm Anticoagulation yet to be determined His current [id number] score would be 1 based upon history [...] to due risk bleed/procedure 08/16/2023 Jun Snyder [id number] Any scheduled follow up appointments No future appointments. Extended Emergency Contact Information Primary Emergency Contact: Alexx Snyder Address: [address] [place] [address] [place] of [place] [employer] Relation: Child Portions of this note may be electronically transcribed. Please forward a copy of this H&P to the primary care physician. [facility] [id number] History and physical note* Earlene Irving MD - 08/16/2023 8:38 PM EST Images from the original note were not included. History and Physical [facility] Jun Snyder : 1965 AGE 57 [...] WedAug 16, 2023 8:09 PM (Active) Physician High Risk Case Manager: Sha Granados PA-C, starting on WedAug 16, [...] him When he was getting dialysis his ambulatory technologist detected irregular rhythm suspected A-fib and referred [...] Past Medical History: Diagnosis Date Hemodialysis patient ([facility]) (HCC) Hypertension IgA nephropathy Past Surgical History: Procedure Laterality Date APPENDECTOMY FISTULAGRAM (HISTORICAL) Left 09/15/2021 LEFT UPPER ARM HX AV FISTULA CREATION IR FISTULAGRAM 08/07/2022 IR FISTULAGRAM 08/07/2022 [facility] IR IMAGING TONSILLECTOMY (HISTORICAL) Allergies Allergen Reactions [...] 08/16/2023 364 QTC Interval 08/16/2023 491 QRS Tiona 08/16/2023 61 T Wave Tiona 08/16/2023 -20 SODIUM 08/16/2023 133 (L) POTASSIUM [...] QT Interval 364 QTC Interval 491 P Tiona QRS Tiona 61 T Wave Tiona -20 UT Interval Impression ATRIAL FIBRILLATION, V-RATE 88-139 INCOMPLETE [...] monitor him on telemetry asked cardiology to [facility] we will additionally request echocardiogram. He is not experiencing chest pain but he is a current smoker and I do not see a recent cardiac work-up in the computer EKG on admission did confirm atrial fibrillation but he is currently in sinus rhythm Anticoagulation yet to be determined His current [id number] score would be 1 based upon history [...] to due risk bleed/procedure 08/16/2023 Jun Snyder [id number] Any scheduled follow up appointments No future appointments. Extended Emergency Contact Information Primary Emergency Contact: Alexx Snyder Address: [address] [place] [address] of [facility] Mobile Relation: Child Portions of this note may be electronically transcribed. Please forward a copy of this H&P to the primary care physician. documented in this [facility]11-20-2023 Physician Emergency department Note* Dangelo Horne DO - 08/16/2023 6:16 PM EST Emergency Department Encounter [facility] ED Patient: Jun Snyder : 1965 Date [...] Horne DO 08/16/231922 Dangelo Horne DO 08/16/231957 [employer] Phone: 1(531) 596-953511-20-2023 Physician Emergency department Note* Sha Granados PA-C - 08/16/2023 6:16 PM EST Emergency Department Encounter [facility] ED Patient: Jun Snyder : 1965 Date of Evaluation: 08/16/2023 ED ARMNI Provider: Sha Granados PA-C [facility]care was supervised [...] CREATION IR FISTULAGRAM 08/07/2022 IR FISTULAGRAM 08/07/2022 [facility] IR IMAGING TONSILLECTOMY (HISTORICAL) Social History Socioeconomic [...] gross facial drooping. No obvious neurologic deficits. Pastoral Assistant strength symmetrical. Moves all 4 extremities spontaneously. [...] 364 ms QTC Interval 491 ms P Tiona degrees QRS Tiona 61 degrees T Wave Tiona -20 degrees UT Interval ms Radiographs: XR chest 1 view Final Result 1. Cardiomegaly. 2. No other acute findings. Report Dictated on Electronically Signed By: Justo Milan MD Electronically Signed Date/Time: 08/16/2023 6:42 PM EST : EKG: All EKG's areinterpreted by the Emergency Department Physician in the absence of a instrument lens inspector. see their note for interpretation of EKG. [...] for new onset A-fib. Patient excepted to [facility]. Final Diagnosis: 1. New onset a-fib (CMS/HCC) ([facility]) Medications - No data to display Diagnoses as of 08/16/232129 New onset a-fib (CMS/HCC) ([facility]) CRITICAL CARE TIME CONSULTS: None PROCEDURES: Unless otherwise noted below, none Procedures DISPOSITION/PLAN Admit 08/16/2023 08:09:48 PM PATIENT REFERRED TO: No follow-up provider specified. DISCHARGE MEDICATIONS: New Prescriptions No medications on file @[facility]([id number]:LAST:1)@ (Please note: Portions of this note were completed with a voice recognition program. Efforts were made to edit the dictations but occasionally words and phrases are mis-transcribed.) Form [id number] Sha Granados PA-C [facility] Care [facility] Sha Granadso PA-C 08/16/232129 [facility]08-05-2023 Hospital Discharge instructions* Discharge Instructions* Jese [...] petroleum jelly on it. documented in this [facility]08-05-2023 Emergency department Note* Jese Frank MD [...] ESRD (end stage renal disease) on dialysis ([facility]) * No order type specified * MDM: [...] ESRD (end stage renal disease) on dialysis ([facility]) DISPOSITION/PLAN DISPOSITION Discharge 05/01/2023 08:15:56 PM PATIENT REFERRED TO: Daryn Loomis MD [address] [facility] [address] In 1 week [facility] [place], [place] [id number] Wound Care [address] [address] I prescribed: New Prescriptions EMOLLIENT [...] that bleeds occasionally. Patient was seen in [facility] a month ago for the same problem. Bed locked and low position, call light within reach. Patient has no further needs. documented in this [facility]08-05-2023 Emergency department Triage note* Sony Dacosta RN - 05/01/2023 7:35 PM EDT Patient to ER room 6 without difficulty. Patient is a dialysis patient Wednesday and Wednesday. Patient had dialysis today . Has small sore close to dialysis site that bleeds occasionally. Patient was seen in [facility] a month ago for the same problem. Bed locked and low position, call light within reach. Patient has no further needs. [facility] [id number] Physician Emergency department Note* Jese Frank MD [...] ESRD (end stage renal disease) on dialysis ([facility]) * No order type specified * MDM: [...] ESRD (end stage renal disease) on dialysis ([facility]) DISPOSITION/PLAN DISPOSITION Discharge 05/01/2023 08:15:56 PM PATIENT REFERRED TO: Daryn Loomis MD [address] [facility] [address] In 1 week [facility] [address] [place] [address] [address] [address] I prescribed: New Prescriptions EMOLLIENT [...] MD (electronically signed) Jese Frank MD 05/01/232038 [facility] [id number] Miscellaneous Notes* Telephone Encounter - Karly Fortune Pss - 01/01/2022 2:36 PM EDT I scheduled him w/ Dr. ried on WednesdayFebruary 16 and left him a detailed vm that I did. This is all have at [facility] bc we are in to March and jair needs a Wednesday or Wednesday bc of dialysis I am sorry, I don't have solution or advise for hospital schedule issues. Next best thing is to discuss with Naomi. May be when Dr. King or Marti come in for special cases to [facility], can this case beincluded at that time. Or if you cancel [facility] schedule and make room for me to come to [facility] any day I can get this done. Thanks! * Telephone Encounter - Karly Fortune Pss - 12/30/2021 10:36 AM EDT Antonio I had him scheduled for his colon w/ you for next WednesdayJanuary 05 but Peggy ramirez said he has to be done at [facility] bc of his hgb. I have no openings at [facility] and I don't know what to do Can you please let me know how to proceed. Thank you Eryn PS I NEED A NEW COLON ORDER FOR [facility] Miscellaneous Notes* Telephone Encounter - Karly Fortune Pss - 12/30/2021 9:33 AM EDT Antonio Painter saw a patient the other day and he ordered him a colon for blood loss anemia I scheduled him for [facility] but his hgb is 6 so Chaor wants him at [facility] . He is also on dialysisand could only do a Wednesday. All docs are booked until March You had a cancellation for next . Can I please put him w/ you? Thank you Eryn documented in [facility]04[facility]-2022 Miscellaneous Notes* Telephone Encounter - Karly Fortune Pss - 12/29/2021 4:18 PM EDT Frankielo I know this patient saw Inocencio the other day as a new patient. I have him scheduled her and his hgb is 6 Could you please do an order for me? I have to get him on tayo Thanks Eryn documented in this [facility]Tr[facility]03-31-2022 History of Present illness Narrative* [...] for internal providers or letter via the [employer] for external providers. HPI: Jun Snyder [...] CKD (chronic kidney disease) Dialysis T//Sat @ [place] [facility], Home hemodialysis since 09/2019 Diverticulosis [...] 12/25/21 TIME: 3:56 PM documented in this [facility]Tr[facility]01-31-2020 History of Present illness Narrative* Miracle Jaramillo RN - 10/27/2019 9:00 PM EST Patient left via wheelchair with family member. Pt left with all of documented belongings. * Blane Lei RN - 10/27/2019 2:30 PM EST Patient Name: Glenn Snyder Patient : 1965 Acct: [id number] Date of Admission: 10/19/2019 Room/Bed: [address] [place] [address] Code Status: Full Code Allergies: Allergies Allergen [...] (Bicarb): 35 Na+ Modeling: Not Applicable Dialyzer: [id number] Dialysate Temperature (C): 36 Blood Flow Rate [...] - Before each treatment: Dialysis Machine No.: [id number] RO Machine No.: [id number] Dialyzer Lot No.: [id number] RO Machine Log Sheet Completed: Yes Machine Alarm Self Test: Completed;Passed (10/27/191409) Machine Autotest: Completed, Passed Air Foam Detector: Tested, Proper Function, pH Reading Extracorporeal Circuit Tested for Integrity: Yes Machine Conductivity: 13.9 Manual Conductivity: 13.7 Machine Ph: 7 Manual Ph: 7 Bleach Test (Neg): Yes Bath Temperature: 96.8 F (36 C) Tubing Lot#: [id number] Conductivity Meter Serial #: [id number] [employer] Secure?: Yes Venous Parameters Set?: [...] Response to Education: Verbalized Understanding * Jeana Pedarza MD - 10/27/2019 11:26 AM EST [facility] Progress Note SUBJECTIVE: Glenn Snyder [...] never had kidney Bx and never saw ambulatory technologist before BLOSSOM might be from CKD progression [...] Pt is likely ESRD. Pt on [facility] HD schedule. Last HD session 10/25 Next HD session today Pt has HD spot at [facility]. 2- Hyperkalemia: resolved with HD 3-high anion gap acidosis likely from CKD and BLOSSOM Resolved with HD 4- Hyperphosphatemia: Continue Phosphorus binder 5- HTN: Improved with HD. Continue same BP meds Monitor BP Ok to d/c patient from nephro stand point Will continue to follow Please call if any question at [phone] JEANA PEDRAZA MD 10/27/2019 11:26 AM * Jeana Pedraza MD - 10/26/2019 4:25 PM EST [facility] Progress Note SUBJECTIVE: Glenn Snyder [...] never had kidney Bx and never saw ambulatory technologist before BLOSSOM might be from CKD progression [...] follow Please call if any question at [phone] JEANA PEDRAZA MD 10/26/2019 4:25 PM * Kimber Bajwa RN - 10/26/2019 10:46 AM EST Patient returned from US renal biopsy. VSS, see record. Bandaide is dry and intact to right flank area. Patient instructed on need for bedrest until 12:45. * Darell Sanches, - 10/26/2019 8:19 AM EST Hospitalist Progress Note 10/26/2019 8:19 AM [phone]: Please page me ([phone]) for patient care issues. [phone]: Please page [facility] night Hospitalist for any [...] lab Plan -daily weights, I&Os, dialysis per ambulatory technologist -renal biopsy and dialysis cath pending, ambulatory technologist following -am labs, replace lytes prn -increase activity -DVT prophylaxis: [] Lovenox [x] Heparin [] SCDs [x] Encourage ambulation [] Already on Anticoagulation Advance Directive: Full Code Discharge planning: Awaiting dialysis cath and renal biopsy. Can be discharge once outpatient dialysis arrangements have been made Darell Sanches DO Division of Hospitalist Medicine Inpatient Medical Services PAGER: [phone] * Ivett Cope, RN - 10/25/2019 4:23 PM EST IMS [...] and discharge needs Received a call from [facility] regarding pt dialysis chair spot. Was [...] 5. Fluid Accumulation-No significant fluid accumulation, 6. Pastoral Assistant Strength-Normal Nutrition Risk Level: High Nutrient Needs: Estimated Daily Total Kcal: 1971-3150 Estimated Daily Protein (g): 60-90 Estimated Daily Total Fluid (ml/day): per md Nutrition Diagnosis: Problem: Altered nutrition-related lab values, Predicted suboptimal energy intake, Increased nutrient needs Etiology: related to Renal dysfunction ? Signs and symptoms: as evidenced by Known losses from dialysis, Weight loss, Lab values Objective Information: Nutrition-Focused Physical Findings: appetite improved, no edema, bun 39 , creat 9.71, wbc11.5nkwhn6.3,on renvela tid- NO DRY WT EST. off [...] kg)(summer 2018) % Weight Change: , na [place] Body Wt: 166 lb (75.3 kg), % [place] Body 121 Adjusted Body Wt: , body [...] EST Hospitalist Progress Note 10/25/2019 5:02 PM [phone]: Please page me ([phone]) for patient care issues. [phone]: Please page [facility] night Hospitalist for any issues. [...] lab Plan -daily weights, I&Os, dialysis per ambulatory technologist -renal biopsy and dialysis cath pending, ambulatory technologist following -am labs, replace lytes prn -increase activity -DVT prophylaxis: [] Lovenox [x] Heparin [] SCDs [x] Encourage ambulation [] Already on Anticoagulation Advance Directive: Full Code Discharge planning: awaiting dialysis cath and renal biopsy Darell Sanches DO Division of Hospitalist Medicine Inpatient Medical Services PAGER: [phone] * Ramon Mei RN - 10/25/2019 11:46 AM EST Patient Name: Glenn Snyder Patient : 1965 Acct: [id number] Date of Admission: 10/19/2019 [facility] Code Status: Full Code Allergies: Allergies [...] (Bicarb): 35 Na+ Modeling: Not Applicable Dialyzer: [id number] Dialysate Temperature (C): 36 Blood Flow Rate [...] - Before each treatment: Dialysis Machine No.: [id number] RO Machine No.: [id number] Dialyzer Lot No.: [id number] RO Machine Log Sheet Completed: Yes Machine Alarm Self Test: Completed;Passed (10/25/191119) Machine Autotest: Completed, Passed Air Foam Detector: Tested, Proper Function, pH Reading Extracorporeal Circuit Tested for Integrity: Yes Machine Conductivity: 14 Manual Conductivity: 14.1 Machine Ph: 7 Manual Ph: 7 Bleach Test (Neg): Yes Bath Temperature: 96.8 F (36 C) Tubing Lot#: [id number] Conductivity Meter Serial #: [id number] All Connections Secure?: Yes Venous Parameters Set?: [...] Evaluate (10/25/19 124) Provider Name: Keila (10/25/19 [facility]) Provider Notification: Physician (10/25/19 [facility]) Method of Communication: Call (10/25/19 124) Response: No new orders (10/25/19 124) Notification Time: 1224 (10/25/191244) Handoff complete and [...] Pedraza MD - 10/25/2019 7:58 AM EST [facility] Progress Note SUBJECTIVE: Glenn Snyder [...] never had kidney Bx and never saw ambulatory technologist before BLOSSOM might be from CKD progression [...] follow Please call if any question at [phone] JEANA PEDRAZA MD 10/25/2019 7:58 AM * [...] EST Hospitalist Progress Note 10/24/2019 11:38 AM [phone]: Please page me ([phone]) for patient care issues. [phone]: Please page [facility] night Hospitalist for any [...] lab Plan -daily weights, I&Os, dialysis per ambulatory technologist -renal biopsy and dialysis cath pending, ambulatory technologist following -am labs, replace lytes prn -increase activity -DVT prophylaxis: [] Lovenox [x] Heparin [] SCDs [x] Encourage ambulation [] Already on Anticoagulation Advance Directive: Full Code Discharge planning: ok to discharge today pending renal biopsy and dialysis cath placement Darell Sanches DO Division of Hospitalist Medicine Inpatient Medical Services PAGER: [phone] * Ivett Cope RN - 10/24/2019 10:48 AM EST Microbiology called, pt has 3x blood cultures drawn on 10/19. One came back with Gram positive rods.[employer] message sent to [facility] Dr Sanches regarding results * Jeana Pedraza MD - 10/24/2019 9:15 AM EST [facility] Progress Note SUBJECTIVE: Glenn Snyder [...] never had kidney Bx and never saw ambulatory technologist before BLOSSOM might be from CKD progression [...] follow Please call if any question at [phone] JEANA PEDRAZA MD 10/24/2019 9:15 AM * Radha Foreman RN - 10/23/2019 7:21 PM EST Patient Name: Glenn Snyder Patient : 1965 Acct: [id number] Date of Admission: 10/19/2019 Room/Bed: [facility]/2225 Code Status: Full Code Allergies: Allergies Allergen [...] (Bicarb): 35 Na+ Modeling: Not Applicable Dialyzer: [id number] Dialysate Temperature (C): 35 Blood Flow Rate [...] - Before each treatment: Dialysis Machine No.: [id number] RO Machine No.: [id number] Dialyzer Lot No.: [id number] RO Machine Log Sheet Completed: Yes Machine Alarm Self Test: Completed;Passed (10/23/191709) Machine Autotest: Completed, Passed Air Foam Detector: Tested, Proper Function, pH Reading Extracorporeal Circuit Tested for Integrity: Yes Machine Conductivity: 13.7 Manual Conductivity: 13.6 Machine Ph: 7 Manual Ph: 7 Bleach Test (Neg): Yes Bath Temperature: 95 F (35 C) Tubing Lot#: [id number] Conductivity Meter Serial #: [id number] All Connections Secure?: Yes Venous Parameters Set?: [...] minutes from secondary) Comment", Waited for RN research greenhouse supervisor for 2nd water check. Access Flows [...] Manual conductivity 13.4, pH 7.0 Yes 10/23/19 1945 400 ml/min 380 ml/hr 737 ml -150 [...] 11.5 oz (91.5 kg) Bed scale 1.44 10/23/193 128/68 102 10/23/192243 128/68 102 Post-Dialysis Arterial [...] Patel MD - 10/23/2019 4:54 PM EST [facility] Progress Note SUBJECTIVE: Glenn Snyder [...] Diagnosis Date Noted Acute renal failure (ARF) ([facility]) 10/19/2019 ASSESSMENT/PLAN: 1. Renal failure, most likely chronic. Discussed with patient in detail. 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 Currently not working. 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 Apparently he was admitted at a hospital in [place] about 5 years ago and had cystoscopy [...] EST Hospitalist Progress Note 10/23/2019 5:02 PM [phone]: Please page me ([phone]) for patient care issues. [phone]: Please page [facility] night Hospitalist for any issues. [...] anemia Plan -daily weights, I&Os, dialysis per ambulatory technologist -renal biopsy and temp dialysis cath pending, ambulatory technologist to arrabge -am labs, replace lytes prn -increase activity -DVT prophylaxis: [] Lovenox [x] Heparin [] SCDs [x] Encourage ambulation [] Already on Anticoagulation Advance Directive: Full Code Discharge planning: likely discharge in next 24 hours Darell Sanches DO Division of Hospitalist Medicine Inpatient Medical Services PAGER: [phone] * Darell Sanches DO - 10/22/2019 2:17 PM EST Hospitalist Progress Note 10/22/2019 2:17 PM [phone]: Please page me ([phone]) for patient care issues. [phone]: Please page [facility] night Hospitalist for any [...] 4.9 4.3 CL 94* 94* 95* CO2 25 28 BUN 76* 83* 53* CREATININE [...] anemia Plan -daily weights, I&Os, dialysis per ambulatory technologist -discussed with patient and he is willing to have the renal bx done. Will notify ambulatory technologist -am labs, replace lytes prn -increase activity -DVT prophylaxis: [] Lovenox [x] Heparin [] SCDs [x] Encourage ambulation [] Already on Anticoagulation Advance Directive: Full Code Discharge planning: likely discharge in next 1-2 days after renal biopsy Darell Sanches DO Division of Hospitalist Medicine Inpatient Medical Services PAGER: [phone] * Randolph Liz MD - 10/22/2019 12:46 PM EST [facility] [place] [address] [place] [address] Progress Note Subjective: Patient seen [...] adenopathy no petechiae Data: Labs: Recent Labs 10/20/1940710/20/197 10/21/19 0532 10/22/19 0430 WBC 9.0 -- [...] EST Hospitalist Progress Note 10/21/2019 10:35 PM [phone]: Please page me ([phone]) for patient care issues. [phone]: Please page [facility] Hospitalist for any issues. Subjective: Admit Date: [...] bolus, 20 mL, Intravenous, Once, Delon Jessica, APPLICATIONS MANAGER - WELLNESS NURSE RN hydrALAZINE (APRESOLINE) injection 10 mg, 10 mg, [...] Intake/Output Summary (Last 24 hours) at 10/21/2019 7148 Last data filed at 10/21/2019 1300 Gross [...] of Hospitalist Medicine Inpatient Medical Services PAGER: [phone] * Randolph Liz MD - 10/21/2019 1:44 PM EST [facility] [place] [address] [place] [address] Progress Note Subjective: Patient seen and examined [...] Name: Glenn Snyder Patient : 1965 Acct: [id number] Date of Admission: 10/19/2019 Room/Bed: [address] [place] [address] Code Status: Full Code Allergies: No Known [...] HCO3 (Bicarb): 35 Na+ Modeling: NA Dialyzer: [id number] Dialysate Temperature (C): 36 Blood Flow Rate [...] Regular Unlabored None (Room air) Expiratory wheezes [place] Dry;Warm Distended;Rounded;Soft Audible Generalized 0 10/21/19 1300 0 3 Regular Unlabored None (Room air) Clear;Diminished [place] Dry;Warm Distended;Rounded;Soft Active Generalized 0 Labs Recent [...] - Before each treatment: Dialysis Machine No.: [id number] RO Machine No.: [id number] Dialyzer Lot No.: [id number] RO Machine Log Sheet Completed: Yes Machine Alarm Self Test: Completed;Passed (10/21/19 0940) Machine Autotest: Completed, Passed Air Foam Detector: Tested, Proper Function, pH Reading Extracorporeal Circuit Tested for Integrity: Yes Machine Conductivity: 13.7 Manual Conductivity: 13.8 Machine Ph: 7 Manual Ph: 7 Bleach Test (Neg): Yes Bath Temperature: 96.8 F (36 C) Tubing Lot#: [id number] Conductivity Meter Serial #: [id number] All Connections Secure?: Yes Venous Parameters Set?: [...] Name: Glenn Snyder Patient : 1965 Acct: [id number] Date of Admission: 10/19/2019 Room/Bed: [address] [place] [address] Code Status: Full Code Allergies: No Known [...] (Bicarb): 35 Na+ Modeling: Not Applicable Dialyzer: [email or web address] Dialysate Temperature (C): 36 Blood Flow Rate [...] x3 Regular Unlabored None (Room air) Clear [place] Dry;Warm Good Soft Active None 0 10/20/19 [...] - Before each treatment: Dialysis Machine No.: [id number] RO Machine No.: [id number] Dialyzer Lot No.: [id number] RO Machine Log Sheet Completed: Yes Machine Alarm Self Test: Completed;Passed (10/20/19 1525) Machine Autotest: Completed, Passed Air Foam Detector: Tested, Proper Function, pH Reading Extracorporeal Circuit Tested for Integrity: Yes Machine Conductivity: 13.6 Manual Conductivity: 13.6 Machine Ph: 7 Manual Ph: 7 Bleach Test (Neg): Yes Bath Temperature: 96.8 F (36 C) Tubing Lot#: [id number] Conductivity Meter Serial #: [id number] All Connections Secure?: Yes Venous Parameters Set?: [...] Pedraza MD - 10/20/2019 2:42 PM EST [facility] Progress Note SUBJECTIVE: Glenn Snyder [...] Diagnosis Date Noted Acute renal failure (ARF) ([facility]) 10/19/2019 ASSESSMENT/PLAN: 1. BLOSSOM . Pt likely has CKD at baseline. No previous Cr values to compare. CKD could be from HTN induced nephrosclerosis VS GN since the patient has h/o proteinuria /hematuria since 2000 but he never had kidney Bx and never saw ambulatory technologist before BLOSSOM might be from CKD progression [...] follow Please call if any question at [phone] JEANA PEDRAZA MD 10/20/2019 2:43 PM * Dorcas Chin APRN - CNP - 10/20/2019 12:03 PM EST Patient transferred from ICU to [facility] service * Brett Encarnacion MD [...] []Injected [x]Non-Injected / Pinnae [x]Normal []Other/ Dentitian [][place] Teeth []Dentures Oral Mucosa [x][place] [x]Moist []Dry/ Oral ETT []Present [x]Absent Neck: [...] [x]Absent/ GUAN ([x]RUE [x]RLE [x]LUE [x]LLE) Neurologic: [place] []Yes [x]No Corneal reflexes []Present []Absent / [...] Ordering Physician MD ENCARNACION MATTHEW Accession Number [id number] CPT4 Codes 66595 () Reason For Exam line placement/vascath Report [...] on --- Final --- Dictating Physician: MD CLAY, CHELSEA Signed Date and Time: 10/19/2019 12:55 pm Signed by: MD CLAY, CHELSEA Transcribed Date and Time: 10/19/2019 12:56 A: [...] 5. Fluid Accumulation-No significant fluid accumulation, 6. Pastoral Assistant Strength-Not measured Nutrition Risk Level: High Nutrient Needs: Estimated Daily Total Kcal: 2969-3855 Estimated Daily Protein (g): 60-90 Estimated Daily [...] Wt: (na) % Weight Change: , na [place] Body Wt: 166 lb (75.3 kg), % [place] Body 132 Adjusted Body Wt: , body [...] Name: Glenn Snyder Patient : 1965 Acct: [id number] Date of Admission: 10/19/2019 Room/Bed: [address] [place] [address] Code Status: No Order Allergies: No Known [...] (Bicarb): 40 Na+ Modeling: Not Applicable Dialyzer: [email or web address] Dialysate Temperature (C): 36 Blood Flow Rate [...] - Before each treatment: Dialysis Machine No.: [id number] RO Machine No.: [id number] Dialyzer Lot No.: [id number] RO Machine Log Sheet Completed: Yes Machine Alarm Self Test: Completed;Passed (10/19/191244) Machine Autotest: Completed, Passed Air Foam Detector: Proper Function, Tested, pH Reading Extracorporeal Circuit Tested for Integrity: Yes Machine Conductivity: 13.8 Manual Conductivity: 13.7 Machine Ph: 7 Manual Ph: 7 Bleach Test (Neg): Yes Bath Temperature: 96.8 F (36 C) Tubing Lot#: [id number] Conductivity Meter Serial #: [id number] All Connections Secure?: Yes Venous Parameters Set?: [...] Understanding documented in this encounterSUMMA Work Phone: [phone] Hospital course Narrative* Darell Sanches DO - [...] to presentation. Admitted to ICU, seen by ambulatory technologist and HD initiated. Stabilized and transferred out [...] Medications: Glenn Snyder Home Medication Instructions JOSE M:[id number] Printed on:10/27/19 0250 Medication Information amLODIPine (NORVASC) 5 MG tablet Take 1 tablet by mouth daily metoprolol tartrate (LOPRESSOR) 25 MG tablet Take 0.5 tablets by mouth 2 times daily sevelamer (RENVELA) 800 MG tablet Take 2 tablets by mouth 3 times daily (with meals) Recommended Follow-up: ambulatory technologist In 3 weeks post hospital fu appt Brenton Mckeon MD [address] [place] [address] In 2 weeks post hospital fu appt Readmission Risk Risk of Unplanned Readmission: 15 Complexity of Follow up: ? Moderate Complexity: follow up within 7-14 calendar days (67077) ? Severe Complexity: follow up within 7 calendar days (58888) Follow up Testing, Pending results or Referrals [...] frame. Signed: Darell Sanches DO [facility] 10/27/2019, 11:23 AM documented in this encounterSUMMA Work Phone: [phone] Hospital Discharge instructions* Discharge Instr - Activity* [...] most local grocery stores, pharmacies, and chain [employer]-stores. ? If you have any questions about your diet or nutrition, call the hospital and ask for the dietitian. * Discharge Instr - Lab* Sophia Bai RN - 10/24/2019 2:21 PM EST [facility] [phone] offer services including medical, dental, [facility], behavioral health and a reduced-rate pharmacy. Fees are based on current income and family size. Please refer to your handout for additional information and all location options. [address] [place] [address] Wednesday 8 AM 6 PM Wednesday 8 AM 2 PM Hemodialysis will be Wednesday, Wednesday and Wednesday at [facility] located at [address] [place] [phone] or [phone] Please arrive at 9:45 am * Additional [...] through Care Everywhere. * Kidney Biopsy: Post-op (Libyan) documented in this encounterSUMMA Work Phone: Evaluation [...] [facility]* Diagnosis Other iron deficiency anemia- Primary Rectal bleeding Hemorrhage of rectum and anus documented [facility]* Diagnosis Skin sore- Primary ESRD (end stage renal disease) on dialysis (HCC) End stage renal disease [facility] Diagnosis New onset a-fib (CMS/HCC) (HCC)- Primary Atrial fibrillation New onset a-fib (CMS/HCC) (HCC) Atrial fibrillation Atrial fibrillation, persistent (HCC) [facility]* Diagnosis Nonrheumatic aortic valve stenosis- Primary Paroxysmal A-fib (CMS/HCC) (HCC) Primary hypertension Unspecified essential hypertension Calcification of abdominal aorta (HCC) Tobacco abuse Tobacco use disorder ESRD on hemodialysis (CMS/HCC) (HCC) [facility]* Diagnosis Personal history of nicotine dependence- Primary Nicotine dependence, cigarettes, uncomplicated [facility] Diagnosis Paroxysmal A-fib (CMS/HCC) [...] remission [facility] Diagnosis Paroxysmal A-fib (CMS/HCC) [...] hemodialysis (CMS/HCC) (HCC) [facility] Diagnosis Paroxysmal A-fib (CMS/HCC) [...] (HCC) S/P AVR [facility] Diagnosis Paroxysmal A-fib (CMS/HCC) [...] of abdominal surgery [facility] Diagnosis Paroxysmal A-fib (CMS/HCC) [...] of abdominal surgery [facility] Diagnosis Paroxysmal A-fib (CMS/HCC) [...] chronicity, unspecified whether acute cor pulmonale present ([facility]) [facility]* Diagnosis Paroxysmal A-fib (CMS/HCC) [...] aortic valve stenosis [facility]* Diagnosis Paroxysmal A-fib (CMS/HCC) (HCC)- Primary Nonrheumatic aortic valve stenosis Primary hypertension Unspecified essential hypertension ESRD on hemodialysis ([facility]) (HCC) Calcification of abdominal aorta (HCC) Tobacco abuse Tobacco use disorder Nonrheumatic aortic valve stenosis- Primary Paroxysmal A-fib (CMS/HCC) (HCC) Primary hypertension Unspecified essential hypertension Calcification of abdominal aorta (HCC) Tobacco abuse Tobacco use disorder ESRD on hemodialysis ([facility]) (HCC) Paroxysmal A-fib ([facility]/HCC) (HCC)- Primary Nonrheumatic aortic valve stenosis Tobacco abuse Tobacco use disorder Alcohol use disorder in remission Acute respiratory failure with hypoxia (HCC)- Primary Tracheostomy dependence (HCC) Tracheostomy status RSV (acute bronchiolitis due to respiratory syncytial virus) Acute bronchiolitis due to respiratory syncytial virus (RSV) ESRD on hemodialysis ([facility]/HCC) (HCC) Pulmonary embolism, other, unspecified chronicity, unspecified whether acute cor pulmonale present ([facility]) Nonrheumatic aortic valve stenosis [facility]* Diagnosis Paroxysmal A-fib (CMS/HCC) (HCC)- Primary Nonrheumatic aortic valve stenosis Primary hypertension Unspecified essential hypertension ESRD on hemodialysis ([facility]) (HCC) Calcification of abdominal aorta (HCC) Tobacco abuse Tobacco use disorder Nonrheumatic aortic valve stenosis- Primary Paroxysmal A-fib (CMS/HCC) (HCC) Primary hypertension Unspecified essential hypertension Calcification of abdominal aorta (HCC) Tobacco abuse Tobacco use disorder ESRD on hemodialysis ([facility]) (HCC) Paroxysmal A-fib ([facility]/HCC) (HCC)- Primary Nonrheumatic aortic valve stenosis Tobacco abuse Tobacco use disorder Alcohol use disorder in remission Acute respiratory failure with hypoxia (HCC)- Primary Tracheostomy dependence (HCC) Tracheostomy status RSV (acute bronchiolitis due to respiratory syncytial virus) Acute bronchiolitis due to respiratory syncytial virus (RSV) Leg DVT (deep venous thromboembolism), acute, left (HCC) Nonrheumatic aortic valve stenosis [facility]* Diagnosis Paroxysmal A-fib (CMS/HCC) [...] not elsewhere classified [facility]* Diagnosis Paroxysmal A-fib (CMS/HCC) [...] osteomyelitis (CMS/HCC) (HCC) [facility]* Diagnosis Paroxysmal A-fib (CMS/HCC) [...] with hypoxia (HCC) [J96.01]- Primary Tracheostomy care ([facility]) [Z43.0] Attention to tracheostomy Pulmonary embolism, other, unspecified chronicity, unspecified whether acute cor pulmonale present ([facility]) [facility]* Diagnosis Paroxysmal A-fib (CMS/HCC) [...] Decubitus ulcer of sacral region, unstageable (HCC) 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 [facility]* Diagnosis Paroxysmal A-fib (CMS/HCC) [...] in remission Acute respiratory failure with hypoxia ([facility]) [J96.01]- Primary Tracheostomy dependence ([facility]) [Z93.0] Tracheostomy status Pulmonary embolism, other, unspecified chronicity, unspecified whether acute cor pulmonale present (HCC) [facility]* Diagnosis Paroxysmal A-fib (CMS/HCC) [...] Tracheostomy status Acute respiratory failure with hypoxia ([facility]) [J96.01] Leg DVT (deep venous thromboembolism), acute, left (HCC) Pulmonary embolism, unspecified chronicity, unspecified pulmonary embolism type, unspecified whether acute cor pulmonale present (HCC) S/P AVR [facility]* Diagnosis Paroxysmal A-fib (CMS/HCC) [...] Primary Tracheostomy status ESRD on hemodialysis (CMS/HCC) ([facility]) Ischemic ulcer of toe of left foot, 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) Sacral osteomyelitis (CMS/HCC) ([facility]) Leukocytosis, unspecified type [facility]* Diagnosis Paroxysmal A-fib (CMS/HCC) (HCC)- Primary Nonrheumatic aortic valve stenosis Primary hypertension Unspecified essential hypertension ESRD on hemodialysis (CMS/[facility]) ([facility]) Calcification of abdominal aorta (HCC) Tobacco abuse Tobacco use disorder Nonrheumatic aortic valve stenosis- Primary Paroxysmal A-fib (CMS/HCC) (HCC) Primary hypertension Unspecified essential hypertension Calcification of abdominal aorta (HCC) Tobacco abuse Tobacco use disorder ESRD on hemodialysis ([facility]/HCC) (HCC) Paroxysmal A-fib (CMS/HCC) (HCC)- Primary Nonrheumatic aortic valve stenosis Tobacco abuse Tobacco use disorder Alcohol use disorder in remission RSV (acute bronchiolitis due to respiratory syncytial virus)- Primary Acute bronchiolitis due to respiratory syncytial virus (RSV) Tracheostomy dependence ([facility]) Tracheostomy status Pneumonia of both lungs due to methicillin susceptible Staphylococcus aureus (MSSA), unspecified part of lung ([facility]) Acute respiratory failure with hypoxia ([facility]) [J96.01] Nonrheumatic aortic valve stenosis Pulmonary embolism, unspecified chronicity, unspecified pulmonary embolism type, unspecified whether acute cor pulmonale present ([facility]) [facility]* Diagnosis Paroxysmal A-fib (CMS/HCC) (HCC)- Primary Nonrheumatic aortic valve stenosis Primary hypertension Unspecified essential hypertension ESRD on hemodialysis (CMS/HCC) ([facility]) Calcification of abdominal aorta (HCC) Tobacco abuse [...] Tracheostomy status ESRD on hemodialysis (CMS/HCC) (HCC) 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 Decubitus ulcer of [...] in remission Acute respiratory failure with hypoxia ([facility]) [J96.01]- Primary RSV (acute bronchiolitis due to respiratory syncytial virus) Acute bronchiolitis due to respiratory syncytial virus (RSV) Tracheostomy dependence (HCC) Tracheostomy status Leg DVT (deep venous thromboembolism), acute, left ([facility]) Pulmonary embolism, unspecified chronicity, unspecified pulmonary embolism type, unspecified whether acute cor pulmonale present ([facility]) S/P AVR documented in this encounter [facility] [...] Decubitus ulcer of sacral region, unstageable (HCC) 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 Your dressing will be removed at [...] call and ask for the Interventional Radiologist network consultant. Where can you learn more? Go to [email or web address] and sign in to your [employer] account. Enter P616 in the Search Health Information box to learn more about Hemodialysis Access: What to Expect at Home. If you do not have an account, please click on the "Sign Up Now" link. Current as of: August 12, 2016 Content Version: [id number] better.. Care instructions adapted under license by [employer]. If youhave questions about a medical condition or this instruction, always ask your healthcare professional. better. disclaims any warranty or liability for your use of this information. documented in this encounterSUMMA Work Phone: [facility] (narrative)* Outpatient Procedure (Routine) - Authorized Specialty Diagnoses / Procedures Referred By Contac t Referred To Contact DIGESTIVE DISEASE EMIGRANT Diagnoses Acute blood loss anemia Rectal bleeding Procedures COLONOSCOPY DIAGNOSTIC COLONOSCOPY FLX DX W/COLLJ SPEC WHEN Rudy Buitrago MD [address] [place] [address] [facility] [address] [place] [address] Referral ID Status Reason Start Date Expiration Date Visits Requested Visits Authorized [id number] Authorized Auto-Generat ed Referral 12/25/2021 12/25/2022 1 1 [facility] for referral (narrative)* Outpatient Procedure (Routine) - Authorized Specialty Diagnoses / Procedures Referred By Contac t Referred To Contact [facility] DISEASE EMIGRANT Diagnoses Other iron deficiency anemia Rectal bleeding Procedures COLONOSCOPY DIAGNOSTIC COLONOSCOPY FLX DX W/COLLJ SPEC WHEN Rudy Buitrago MD [address] [facility] [place] [address] [facility] [place] [address] [place] [address] Referral ID Status Reason Start Date Expiration Date Visits Requested Visits Authorized [id number] Authorized Auto-Generat ed Referral 12/30/2021 12/30/2022 1 1 [facility] for referral (narrative)* Consultation (Routine) - Pending Review Specialty Diagnoses / Procedures Referred By Contac t Referred To Contact Wound Care Diagnoses Skin sore Procedures [facility] OFFICE/OUTPATIENT [facility] MDM 60-74 MINUTES Jese Frank MD [address] [place] [address] [facility] Op Wnd Ostomy [address] [place] [address] Referral ID Status Reason Start Date Expiration Date Visits Requested Visits Authorized [id number] Pending Review Specialty Services Required 05/01/2023 04/30/2024 1 1 [facility] for referral (narrative)No reason for referral information availableWCincinnati Children's [facility] Work Phone: Reason for visit Narrative* Auth/Cert (Routine) Specialty Diagnoses / Procedures Referred By Contac t Referred To Contact Diagnoses Atrial flutter, unspecified type (HCC) Procedures . Ramón Romano MD [address] [place] [address] Phone: tel: fax: [facility] ED [address] [place] [address] Phone: tel: Referral ID Status Reason Start Date Expiration Date Visits Re quested Visits Authorized [id number] 1 1 [facility] Narrative* Imaging (Routine) - Closed Specialty Diagnoses / Procedures Referred By Contac t Referred To Contact Radiology Diagnoses Hemoptysis Procedures CT chest wo IV contrast Elly Jett MD [facility] [place] [address] Phone: tel: fax: [facility] 1 [facility] [address] [facility] [address] [place] [address] Phone: tel: fax: Referral ID Status Reason Start Date Expiration Date Visits Re quested Visits Authorized [id number] Closed 02/23/2025 02/23/2026 [facility] Diagnosis Chronic kidney disease, stage [...] Documents on File Type Date Recorded Patient Transplant Surgeon Expl anation Advance Directive(s) 11/22/2020 11:20 AM Advance Directive(s) 06/12/2020 8:15 AM Advance Directive(s) 03/20/2020 7:16 AM Documents on File Type Date Recorded Patient Transplant Surgeon Expl anation Advance Directive(s) 11/22/2020 11:20 AM Advance Directive(s) 06/12/2020 8:15 AM Advance Directive(s) 03/20/2020 7:16 AM Documents on File Type Date Recorded Patient Transplant Surgeon Expl anation Power of Digital Communications Manager 02/14/2023 1:37 PM Advance Directives and Livin g Will 02/14/2023 1:37 PM Documents on File Type Date Recorded Patient Transplant Surgeon Expl anation Power of Digital Communications Manager 02/14/2023 1:37 PM Advance Directives and Livin [...] Documents on File Type Date Recorded Patient Transplant Surgeon Expl anation Advance Directives and Livin g Will 10/03/2024 11:27 AM Power of Digital Communications Manager 02/14/2023 1:37 PM Advance Directives and Livin g Will 02/14/2023 1:37 PM Date Activated Date Inactivated Comments 10/03/2024 6:19 PM Date Activated Date Inactivated Comments 08/17/2023 12:04 AM 08/17/2023 5:18 PM Documents on File Type Date Recorded Patient Transplant Surgeon Expl anation Advance Directives and Livin g Will 10/03/2024 11:27 AM Power of Digital Communications Manager 02/14/2023 1:37 PM Advance Directives and Livin g Will 02/14/2023 1:37 PM Date Activated Date Inactivated Comments 10/03/2024 6:19 PM Date Activated Date Inactivated Comments 08/17/2023 12:04 AM 08/17/2023 5:18 PM Healthcare Agents on File Name Relationship Healthcare Agent Relationshi p Communication Omar Lillian Child Health Care Agent [phone] (Mobile) Healthcare Agents on File Name Relationship Healthcare Agent Relationshi p Communication Omar Lillian Child Health Care Agent [phone] (Mobile) Healthcare Agents on File Name Relationship Healthcare Agent Relationshi p Communication Omar Lillian Child Health Care Agent [phone] (Mobile) Healthcare Agents on File Name Relationship Healthcare Agent Relationshi p Communication Omar Lillian Child Health Care Agent [phone] (Mobile) Date Activated Date Inactivated Comments 11/09/2024 [...] Documents on File Type Date Recorded Patient Transplant Surgeon Expl anation Power of Digital Communications Manager 01/24/2025 12:29 PM Advance Directives and Livin g Will 10/03/2024 11:27 AM Power of Digital Communications Manager 02/14/2023 1:37 PM Advance Directives and Livin [...] Omar Lillian Child Health Care Agent [facility] Documents on File Type Date Recorded Patient Transplant Surgeon Expl anation Power of Digital Communications Manager 01/24/2025 12:29 PM Advance Directives and Livin g Will 10/03/2024 11:27 AM Power of Digital Communications Manager 02/14/2023 1:37 PM Advance Directives and Livin [...] Omar Lillian Child Health Care Agent [facility] Health Care Agent Healthcare Agents on File [...] Documents on File Type Date Recorded Patient Transplant Surgeon Expl anation Power of Digital Communications Manager 01/24/2025 12:29 PM Omar Lillian Advance Directives and Livin g Will 10/03/2024 11:27 AM Power of Digital Communications Manager 02/14/2023 1:37 PM Advance Directives and Livin [...] Child Health Care Agent Toma Mcneil [facility] First Alternate Health Care Agent Healthcare Agents on File Name Relationship Healthcare Agent Relationshi p Communication Omar Lillian Child Health Care Agent Toma Mcneil [facility] Alternate Health Care Agent Documents on File Type Date Recorded Patient Transplant Surgeon Expl anation Power of Digital Communications Manager 01/24/2025 12:29 PM Omar Lillian Advance Directives and Livin g Will 10/03/2024 11:27 AM Power of Digital Communications Manager 02/14/2023 1:37 PM Advance Directives and Livin [...] Omar Lillian Child Health Care Agent [facility] Agent Healthcare Agents on File Name Relationship Healthcare Agent Relationshi p Communication Omar Lillian Child Health Care Agent [facility] Health Care Agent Healthcare Agents on File Name Relationship Healthcare Agent Relationshi p Communication Omar Lillian Child Health Care Agent [facility] Health Care Agent Healthcare Agents on File Name Relationship Healthcare Agent Relationshi p Communication Omar Lillian Child Health Care Agent Toma [facility] First Alternate Health Care Agent Healthcare Agents on File Name Relationship Healthcare Agent Lupe johnson Communication Omar Lillian Child Health Care Agent [...] CT lung screening low dose Fransisco Pineda, APPLICATIONS MANAGER [address] [place] [address] Referral ID Status Reason Start Date Expiration Date V isits Requested Visits Authorized [id number] Authorized 09/07/2023 09/06/2024 1 1 Chief Complaint [...] 2025 5:00a m JAIL LAB WORK February 08, 2025 5:0 0am JAIL LAB WORK February 12, 2025 5:0 0am JAIL LAB WORK February 13, 2025 5:0 0am JAIL LAB WORK February 15, 2025 5:0 [...] or prosecute any alcohol or drug abuse patient.[facility] the event this information is protected by the Federal Confidentiality of Alcohol and Drug Abuse Patient Records regulations: The Federal rules restrict any use of the information to criminally investigate or prosecute any alcohol or drug abuse patient.[facility] the event this information is protected by the Federal Confidentiality of Alcohol and Drug Abuse Patient Records regulations: The Federal rules restrict any use of the information to criminally investigate or prosecute any alcohol or drug abuse patient.[facility] the event this information is protected by the Federal Confidentiality of Alcohol and Drug Abuse Patient Records regulations: The Federal rules restrict any use of the information to criminally investigate or prosecute any alcohol or drug abuse patient.[facility] Center[facility] the event this information is protected by the Federal Confidentiality of Alcohol and Drug Abuse Patient Records regulations: The Federal rules restrict any use of the information to criminally investigate or prosecute any alcohol or drug abuse patient.[facility] Center[facility] the event this information is protected by the Federal Confidentiality of Alcohol and Drug Abuse Patient Records regulations: The Federal rules restrict any use of the information to criminally investigate or prosecute any alcohol or drug abuse patient.[facility] Center[facility] the event this information is protected by the Federal Confidentiality of Alcohol and Drug Abuse Patient Records regulations: The Federal rules restrict any use of the information to criminally investigate or prosecute any alcohol or drug abuse patient.[facility] Center[facility] the event this information is protected by the Federal Confidentiality of Alcohol and Drug Abuse Patient Records regulations: The Federal rules restrict any use of the information to criminally investigate or prosecute any alcohol or drug abuse patient.[facility] (unrecognized sect ion and content) No Status Records FoundNo Status Records FoundNo Status Records FoundNo Status Records FoundNo Status Records FoundNo Status Records Found INFORMATION SOURCE (unrecogn ized section and content) DATE CREATED AUTHOR 11/26/2020 [facility] DATE CREATED AUTHOR AUTHOR'S ORGANIZ ATION 09/18/2021 [facility] DATE CREATED AUTHOR AUTHOR'S ORGANIZ ATION 12/18/2022 [facility] DATE CREATED AUTHOR AUTHOR'S ORGANIZ ATION 04/16/2024 [facility] DATE CREATED AUTHOR AUTHOR'S ORGANIZ ATION 04/17/2025 [facility] DATE CREATED AUTHOR AUTHOR'S ORGANIZ ATION 04/18/2025 [facility] Continuous Active and Recently Administ ered [...] sodium chloride 0.9 % 100 mL IVPB (Add-Ashburn) 3,000 mg, IntraVENous, at 200 mL/hr, Administer over 30 Minutes, Every 24 hours, First dose on Brigid 01/25/25 at 1700, ADD-Ashburn bag, Suspected Indication (Select all that apply): Bone and Joint Infection 1838 (New Bag - Provider: Miriam Reza, SWEETIE)2012 (Stopped - Provider: Casandra Rose, SWEETIE) 1645 (New Bag - Provider: Angella Ley, SWEETIE)1715 (Due: Stopped - Provider: Angella Ley, SWEETIE) 1700 (Canceled Entry - Provider: Automatic Discharge Provider - Comment: Automatically canceled at discontinue of medication order) ampicillin-sulbactam (Unasyn) 3,000 mg in sodium chloride 0.9 % 100 mL IVPB (Add-Ashburn) (CANCELED) 3,000 mg, IntraVENous, at 200 mL/hr, Administer over 30 Minutes, Every 24 hours, First dose on Wed02/01/25 at 1030, For 13 days, ADD-Ashburn bag, Suspected Indication (Select all that apply): Skin and Soft Tissue Infection 1051 (New Bag - Provider: Kristine Donato, SWEETIE)1136 (Stopped - Provider: Kristine Donato, SWEETIE) chlorhexidine (Hibiclens) 4 % solution Topical, Daily, First dose on Wed02/01/25 at 1400 1341 (Given - Provider: Kristine Donato, RN) collagenase 250 UNIT/GM ointment Topical, Daily, [...] mg (COMPLETED) 25 mg, Oral, Once, On Brigid 02/01/25 at 0500, For 1 dose 0528 (Given - Provider: Leilani Jaimes RN) Lidocaine 4 % patch 1 patch 1 patch, Topical, Administer over 12 Hours, Daily, First dose on Wed01/19/25 at 0900, Apply patch to L chest. Patch may remain in place for up to 12 hours in any 24 hour period. 1038 (Medication Applied - Provider: Miriam Reza RN)2203 (Medication Removed - Provider: Casandra Rose RN) [...] Jun Borrero MD) lidocaine-EPINEPHrine (Xylocaine W/EPI) 1 %-[id number] injection (COMPLETED) As needed, Starting on Wed01/30/25 [...] pupils, Starting on Wed01/19/25 at 0614, +++notify network consultant provider if used+++ oxyCODONE (Roxicodone) immediate release [...] or split. 0824 (Given - Provider: Shasta Sinclair, RN)1659 (Given - Provider: Shasta Sinclair RN) [...] apply): Aspiration Pneumonia 0019 (Stopped - Provider: Aev Arnold RN)0213 (New Bag - Provider: Ave Arnold RN)0530 (Stopped - Provider: Ave Arnold RN)0825 (New Bag - Provider: Shasta Sinclair, RN)1340 (Stopped - Provider: Shasta Sinclair RN)1351 (New Bag - Provider: Shasta Sinclair, RN)1819 (Stopped - Provider: Shasta Sinclair RN)2120 (New Bag - Provider: Rudolph Najera, SWEETIE) 0018 (Stopped - Provider: Rudolph Najera RN)0158 (New Bag - Provider: Rudolph Najera RN)0441 (Stopped - Provider: Rudolph Najera RN)0831 (New Bag - Provider: Ochoa Johnson, SWEETIE)1141 (Stopped - Provider: Liv Grimaldo, SWEETIE)1611 (New Bag - Provider: Liv Grimaldo, SWEETIE)2115 (Stopped - Provider: Rosio Bey, SWEETIE)2125 (New Bag - Provider: Rosio Bey, RN) 0025 (Stopped - Provider: Rosio Bey, RN)0438 (New Bag - Provider: Rosio Bey, RN)0739 (Stopped - Provider: Tyson Freeman RN)1034 [...] 1 dose 1659 (Given - Provider: Shasta Sinclair, SWEETIE) warfarin (Coumadin) tablet 7.5 mg (COMPLETED) 7.5 mg, Oral, Once Warfarin, On Wed03/04/25 at 1700, For 1 dose 1612 (Given - Provider: Liv Grimaldo RN) warfarin (Coumadin) tablet 7.5 mg (COMPLETED) 7.5 mg, Oral, Once Warfarin, On Wed03/05/25 at 1545, For 1 dose 1546 (Given [...] sedation for opioid reversal - MUST notify network consultant provider immediately after first dose, may give [...] at 2100 1011 (Given - Provider: Whitney Dobbins RN)2102 (Given - Provider: Rosio Bey, SWEETIE) 0936 (Given - Provider: Whitney Dobbins, RN)2123 (Given - Provider: Mir Cannon RN) [...] 1 dose 1643 (Given - Provider: Whitney Dobbins, SWEETIE) Continuous Medication Order 03/19/2025 03/20/2025 03/21/2025 heparin [...] mg (COMPLETED) 5 mg, IntraVENous, Once, On Wed04/05/25 at 1040, For 1 dose 1100 (Given - Provid er: Michelle Nunes RN) Scheduled Medication Order 04/15/2025 04/16/2025 04/17/2025 phytonadione (Vitamin K) tablet 5 mg (COMPLETED) 5 mg, Oral, Once, On Wed04/17/25 at 1100, For 1 dose 1114 (Given - Provid er: Jade Palencia, SWEETIE) Care Teams (unrecognized sec tion and content) Special Agent Group Insurance Relationship Specialty Start Date End Date Daryn Loomis MD [address] [place] [phone] PCP - General Family Medicine 12/18/20 Special Agent Group Insurance Relationship Specialty Start Date End Date Candido Starr MD [address] [address] Nephrology 02/22/20 Special Agent Group Insurance Relationship Specialty Start Date End Date Candido Starr MD [address] [address] Nephrology 02/22/20 Special Agent Group Insurance Relationship Specialty Start Date End Date Candido Starr MD [address] [address] Nephrology 02/22/20 Special Agent Group Insurance Relationship Specialty Start Date End Date Daryn Loomis MD [address] [place] [phone] PCP - General 12/18/20 Special Agent Group Insurance Relationship Specialty Start Date End Date Daryn Loomis MD [address] [place] [phone] PCP - General 12/18/20 Special Agent Group Insurance Relationship Specialty Start Date End Date Daryn Loomis MD [address] [place] [phone] PCP - General 12/18/20 Special Agent Group Insurance Relationship Specialty Start Date End Date Daryn Loomis MD [address] [place] [phone] PCP - General 12/18/20 Special Agent Group Insurance Relationship Specialty Start Date End Date Daryn Loomis MD [facility] [place] [address] PCP - General 12/18/20 Special Agent Group Insurance Relationship Specialty Start Date End Date Daryn Loomsi MD [address] [place] [phone] PCP - General 12/18/20 Special Agent Group Insurance Relationship Specialty Start Date End Date Daryn Loomis MD [address] [place] [phone] PCP - General 12/18/20 Special Agent Group Insurance Relationship Specialty Start Date End Date Daryn Loomis MD [address] [place] [phone] PCP - General 12/18/20 Special Agent Group Insurance Relationship Specialty Start Date End Date Candido Starr MD [address] [place] [address] Nephrology 02/22/20 Special Agent Group Insurance Relationship Specialty Start Date End Date Candido Starr MD [address] [place] [address] Nephrology 02/22/20 Special Agent Group Insurance Relationship Specialty Start Date End Date Daryn Loomis MD [address] [place] [phone] PCP - General 3/24/21 Special Agent Group Insurance Relationship Specialty Start Date End Date Aba, Leilani [address], [facility] [id number] PCP - General Family Medicine 10/03/24 Special Agent Group Insurance Relationship Specialty Start Date End Date eLilani Troncoso [address], [facility] [id number] PCP - General Family Medicine 10/03/24 Special Agent Group Insurance Relationship Specialty Start Date End Date Leilani Troncoso [address], [facility] [id number] PCP - General Family Medicine 10/03/24 Special Agent Group Insurance Relationship Specialty Start Date End Date Leilani Troncoso [address], [facility] [id number] PCP - General Family Medicine 10/03/24 Special Agent Group Insurance Relationship Specialty Start Date End Date Leilani Troncoso [address], [facility] [id number] PCP - General Family Medicine 10/03/24 Special Agent Group Insurance Relationship Specialty Start Date End Date Leilani Troncoso [address], [facility] [id number] PCP - General Family Medicine 10/03/24 Special Agent Group Insurance Relationship Specialty Start Date End Date Leilani Troncoso [address], [facility] [id number] PCP - General Family Medicine 10/03/24 Special Agent Group Insurance Relationship Specialty Start Date End Date Leilani Troncoso [address] [place] [phone] PCP - General Family Medicine 10/03/24 Special Agent Group Insurance Relationship Specialty Start Date End Date Leilani Troncoso [address] [place] [phone] PCP - General Family Medicine 10/03/24 Special Agent Group Insurance Relationship Specialty Start Date End Date Leilani Troncoso [address] [place] [address] PCP - General Family Medicine 10/03/24 Special Agent Group Insurance Relationship Specialty Start Date End Date Leilani Troncoso [address], [facility] [id number] PCP - General Family Medicine 10/03/24 Special Agent Group Insurance Relationship Specialty Start Date End Date Leilani Troncoso [address] [place] [phone] PCP - General Family Medicine 10/03/24 Special Agent Group Insurance Relationship Specialty Start Date End Date Leilani Troncoso [address] [place] [phone] PCP - General Family Medicine 10/03/24 Special Agent Group Insurance Relationship Specialty Start Date End Date Leilani Troncoso [address] [place] [phone] PCP - General Family Medicine 10/03/24 Special Agent Group Insurance Relationship Specialty Start Date End Date Leilani Troncoso [address] [place] [address] PCP - General Family Medicine 10/03/24 Special Agent Group Insurance Relationship Specialty Start Date End Date Leilani Troncoso [address] [place] [phone] PCP - General Family Medicine 10/03/24 Special Agent Group Insurance Relationship Specialty Start Date End Date Leilani Troncoso [address] [place] [phone] PCP - General Family Medicine 10/03/24 Special Agent Group Insurance Relationship Specialty Start Date End Date Leilani Troncoso [address] [place] [address] PCP - General Family Medicine 10/03/24 Special Agent Group Insurance Relationship Specialty Start Date End Date Leilani Troncoso [address] [place] [phone] PCP - General Family Medicine 10/03/24 Special Agent Group Insurance Relationship Specialty Start Date End Date Leilani Troncoso [address] [place] [address] PCP - General Family Medicine 10/03/24 Special Agent Group Insurance Relationship Specialty Start Date End Date Leilani Troncoso [address] [place] [phone] PCP - General Family Medicine 10/03/24 Special Agent Group Insurance Relationship Specialty Start Date End Date Leilani Troncoso [address] [place] [phone] PCP - General Family Medicine 10/03/24 Special Agent Group Insurance Relationship Specialty Start Date End Date Leilani Troncoso [address] [place] [phone] PCP - General Family Medicine 10/03/24 Special Agent Group Insurance Relationship Specialty Start Date End Date Leilani Troncoso [address] [place] [phone] PCP - General Family Medicine 10/03/24 Special Agent Group Insurance Relationship Specialty Start Date End Date Leilani Troncoso [address] [place] [phone] PCP - General Family Medicine 10/03/24 Special Agent Group Insurance Relationship Specialty Start Date End Date Leilani Troncoso [address] [place] [phone] PCP - General Family Medicine 10/03/24 Team [...] Attending Provider Active Start: February 20, 2025 Special Agent Group Insurance Relationship Specialty Start Date End Date Leilani Troncoso [address] [place] [phone] PCP - General Family Medicine 10/03/24 Special Agent Group Insurance Relationship Specialty Start Date End Date Leilani Troncoso [address] [place], [facility] [id number] PCP - General Family Medicine 10/03/24 Special Agent Group Insurance Relationship Specialty Start Date End Date Leilani Troncoso [address] [place] [address] PCP - General Family Medicine 10/03/24 Special Agent Group Insurance Relationship Specialty Start Date End Date Leilani Troncoso [address] [place], [facility] [id number] PCP - General Family Medicine 10/03/24 Special Agent Group Insurance Relationship Specialty Start Date End Date Leilani Troncoso [address] [place], [facility] [id number] PCP - General Family Medicine 10/03/24 Special Agent Group Insurance Relationship Specialty Start Date End Date Leilani Troncoso [address] [place], [facility] [id number] PCP - General Family Medicine 10/03/24 Team [...] February 20, 2025 End: February 20, 2025 Special Agent Group Insurance Relationship Specialty Start Date End Date Leilani Troncoso [facility] [place] [phone] PCP - General Family Medicine 10/03/24 Team [...] February 12, 2025 End: February 12, 2025 Special Agent Group Insurance Relationship Specialty Start Date End Date Leilani Troncoso [address] [place] [phone] PCP - General Family Medicine 10/03/24 Special Agent Group Insurance Relationship Specialty Start Date End Date Leilani Troncoso [address] [place] [phone] PCP - General Family Medicine 10/03/24 Special Agent Group Insurance Relationship Specialty Start Date End Date Leilani Troncoso [address] [place] [phone] PCP - General Family Medicine 10/03/24 Special Agent Group Insurance Relationship Specialty Start Date End Date Leilani Troncoso [address] [place] [phone] PCP - General Family Medicine 10/03/24 Special Agent Group Insurance Relationship Specialty Start Date End Date AbaLeilani ramos [address] [place] [phone] PCP - General Family Medicine 10/03/24 Reason for Visit (unrecogniz ed section and content) Reason Comments Emesis Diarrhea Oral Swelling Reason Comments Hemoglobin drop 6.8 Rectal bleeding- lab s in Care Everywhere under Summarization Reason Comments Procedure Reason Comments theresabriseidacecilia Reason Comments please advise Reason Comments Sore [...] To Contact Diagnoses New onset a-fib (CMS/HCC) ([facility]) Procedures . Earlene Irving MD [address] [facility] [address] [place] [address] [facility] Emergency Dept [address] [place] [address] Referral ID Status Reason Start Date Expiration Date Visits Re quested Visits Authorized [id number] 1 1 Reason Onset Date Comments Cancelled [...] To Contact Diagnoses Complication of tracheostomy (CMS/HCC) ([facility]) Procedures . 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 Specialty Diagnoses / Procedures Referred By Contac t Referred To Contact Diagnoses Hemoptysis Procedures . Bettye Pierre MD [address] [place] [address] Phone: tel: fax: [facility] Trauma Neuro Progressive Care Unit PCU [address] [place] [address] Phone: tel: Referral ID Status Reason Start Date Expiration Date Visits Re quested Visits Authorized [id number] 1 1 Reason Onset Date Comments Appointment 02/23/2025 Reason Comments Shortness of Breath Pt [facility] via EMS. Pt was starting dialysis and feeling short of breath dialysis was stopped and sent to the hospital to be evaluated. Specialty Diagnoses / Procedures Referred By Contac t Referred To Contact Diagnoses SOB (shortness of breath) Procedures 0 Rubi Sanon MD [address] [place] [address] Phone: tel: fax: [facility] Cardiac Progressive Care Unit PCU [address] [place] [address] Phone: tel: Referral ID Status Reason Start Date Expiration Date Visits Re quested Visits Authorized [id number] 1 Reason Onset Date Comments Appointment [...] BE BASED ON THE PRIMARY CLINICAL RECORDS. [employer] [facility]. provides no warranty or guarantee of the accuracy or completeness of information in this document.
[2025-04-19 09:11] LABS: Prothrombin Time (Protime)PT. 35.0 SECONDS (11.7-14.9)
== END ==
LOC: OLS.SANC 05:00
DX: Z79.01 Long term (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 anticoagulants (principal)
CPT/HCPCS: 36415; 85610

== ENCOUNTER → 2025-04-20 05:00 | Outpatient (REF) | payer MEDICARE, SELFPAY ==
--- OUTSIDE RECORDS SUMMARY | 2025-04-20 04:35 | XMS RPT_ITS | CCD ---
Author Organization 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 Name Role Phone Candido Starr Unavailable Unavailable Primary Care Provider Unavailrickey Loomis MD, Daryn Cali Primary Care Provider Unavailable Primary Care Provider UnavailCandido Hardy MD Unavailable Daryn Loomis MD Primary Care Provider Candido Starr MD Unavailable [facility] Primary Care Provider [phone] [facility] [phone] Kayley Melendrez MD Attending Provider Unava ilable Jayesh Nguyen Attending Provider Unavailab Kalyey Cm MD Referring Provider Unava ilable ANTHONY HURTADO Attending Unavailable TERRELL, WELLINGTON Consulting Unavailable BETTYE PIERRE Admitting Unavailable [facility] Primary Care Unavailable KEIRY SOLARES Attending Unavailable [facility] Primary Care Unavailable [facility] Primary Care Unavailable ANU CASTRO Attending Unavailable TERRELL, WELLINGTON Consulting Unavailable RUBI SANON Admitting Unavailable [facility] Primary Care Unavailable LUCIANO MONTEMAYOR Attending Unavailable MAC LUCIANO Admitting Unavailable CINDY PATEL Consulting Unavailable [facility] Primary Care Unavailable ELDON ALBA Consulting Unavailable TIFFANIE VILLEGAS Consulting Unavailable DARYN SANTACRUZ Consulting Unavailable CALI ARREDONDO Consulting Unavailable DIETER VILLEGAS Attending Unavailable [facility] Primary Care Unavailable BARB DAWKINS Attending Unavailable JUNE CHAPARRO Consulting Unavailable QUIANA JEFFERY Admitting Unavailable ABA, PONTOTOC Primary Care Unavailable ABA, [place] Primary Care Unavailable FRANK, JESE Referring Unavailable ABA, [place] Primary Care Unavailable MIKALA DAY Attending Unavailable ABA, [place] Primary Care Unavailable OSIRIS TERRELL Attending Unavailable ABA, [place] Primary Care Unavailable MONTEMAYOR, LUCIANO Referring Unavailable ABA, [place] Primary Care Unavailable MONTEMAYOR, LUCIANO Referring Unavailable DARYN LOOMIS Primary Care Unavailable JR SHAH Attending Unavailable ABA, [place] Primary Care Unavailable MIKALA DAY Referring Unavailable MIKALA DAY Attending Unavailable ABA, [place] Primary Care Unavailable ELIZABETH, ASHMA Referring Unavailable ABA, [place] Primary Care Unavailable FRANK, JESE Referring Unavailable Mukkamalla OLS, Navarroer Attending Unavail able Katsaros OLS, Jayesh Attending Unavailable Katsaros OLS, Jayesh Attending Unavailable Mukkamalla OLS, Mahaveer Referring Unavail able Mukkamalla OLS, Mahannemarieer Attending Unavail able Mukkamalla OLS, Navarroer Attending Unavail able Katsaros OLS, Jayesh Attending Unavailable Katsaros OLS, Peter Referring Unavailable Katsaros OLS, Peter Attending Unavailable Mukkamalla OLS, Mahaveer Attending Unavail able Mukkamalla OLS, Mahaveer Attending Unavail able Mukkamalla OLS, Mahaveer Attending Unavail able Mukkamalla OLS, Mahaveer Attending Unavail able Mukkamalla OLS, Mahaveer Attending Unavail able Mukkamalla OLS, Mahaveer Referring Unavail able Mukkamalla OLS, Mahaveer Attending Unavail able Mukkamalla OLS, Mahaveer Attending Unavail able Katsaros OLS, Jayesh Attending Unavailable Mukkamalla OLS, Mahaveer Attending Unavail able Mukkamalla OLS, Mahaveer Attending Unavail able Mukkamalla OLS, Mahaveer Attending Unavail able Mukkamalla OLS, Mahaveer Attending Unavail able Mukkamalla OLS, Mahaveer Attending Unavail able Mukkamalla OLS, Mahaveer Attending Unavail able Allergies Allergy Classification Reported Allergen(s) Allergy Type Date of Onset Reaction(s) Facility (11 sources) [facility] ([facility] Lisinopril Allergy to substance [address], [address] [facility] Medications Current Medications Medication Drug Class(es) [...] HMG-CoA Reductase Inhibitor Start: 08-17-20 End: 10-16-19 24 take 1 tablet by mouth once daily [...] Start: 04-05-2025 5 mg, IntraVENous, Once, On Brigid 04/05/25 at 1040, For 1 dose Start: 03-17-2025 End: 03-21-2025 take 50 mg by mouth twice daily 50 mg, Oral, 2 times daily, First dose (after last modification) on 03/17/25 at 2100 Start: 03-15-2025 End: 03-17-2025 take 1 tablet by mouth every six hours 25 mg, Oral, Every 6 hours, First dose (after last modification) on Brigid 03/15/25 at 1200 Start: 03-14-2025 End: 03-15-2025 take 1 tablet by mouth every eight hours 25 mg, Oral, Every 8 hours, First dose (after last modification) on Wed03/14/25 at 1400 Start: 06-17-2025 5 mg, IntraVEN ous, Once, On Wed03/13/25 [...] Indications: ESRD on hemodialysis (CMS/HCC) ([facility]) Take 1 tablet (800 mg) by mouth [...] 025 7.5 mg, Oral, Once Warfarin, On 03/20/25 at 1700, For 1 dose Start: 03-17-2025 [...] sodium chloride 0.9 % 100 mL IVPB (Add-[place]) (2 sources) Start: 02-01-2025 End: 02-01-2025 anidulafungin [...] End: 01-22-2025 Start: 01-22-2025 End: 01-22-2025 B Yvribfs-G-Cgsoi Acid (NEPHRO-NATO) 0.8 MG TABS (1 source) Start: 10-14-2020 take 1 tablet by mouth once daily B Iasomfn-O-Aaoic Acid (NEPHRO-NATO) 0.8 MG TABS TAKE 1 [...] at 1024, Anesthesia Intraprocedure epoetin rowan-epbx (Retacrit) 51225 UNIT/ML injection (20 sources) Start: 12-04-2024 End: 02-21-2025 inject 0.79 mL by subcutaneous injection every week epoetin rowan-epbx (Retacrit) 02715 UNIT/ML injection Indications: ESRD on Dialysis Inject 0.79 mL (7,900 Units) under the skin 1 (one) time per week. 12/04/2024 02/21/2025 Discontinued (Discontinued by another clinician) Start: 12-04-2024 inject 0.79 mL by bangura bcutaneous injection every week epoetin rowan-epbx (Retacrit) 84744 UNIT/ML injection Indications: ESRD on Dialysis Inject [...] 10-12-2024 Perfusion, Continuous PRN, Starting on Brigid 25 at 0727, Anesthesia Intraprocedure 1 ml phenylephrine hydrochloride 10 mg/ml injection (1 source) alpha-1 Adrenergic Agonist Start: 10-12-2024 End: 10-12-2024 IntraVENous, As needed, Starting on Wed10/12/24 at 0903, Anesthesia Intraprocedure Phenylephrine HCl (Pressors) 1 MG/10ML injection (1 source) Start: 10-12-2024 End: 10-12-2024 IntraVENous, As needed, Starting on Wed10/12/24 at 1024, Anesthesia Intraprocedure polyethylene glycol 3350 46601 mg powder for oral solution (6 sources) [...] sodium chloride 5860 mg / sodium sulfate 05626 mg powder for oral solution (6 sources) [...] 10-12-2024 IntraVENous, Continuous PRN, Starting on Brigid /16/25 at 0726, Anesthesia Intraprocedure Start: 09-15-2021 0.9 [...] sources) Long-term current use of antibiotic; Translations: [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 (current) use of antibiotics] Onset: 01-12-2025 01-12-2025 Episodic Other aftercare (2 sources) 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 (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 anticoagulants; Translations: [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 (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 anticoagulants] Onset: 03-24-2025 Episodic Other aftercare (1 source) Other 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 (current) drug therapy; Translations: [Other 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 (current) drug therapy] Onset: 02-28-2025 Episodic Other [...] Onset: 10-03-2024 Episodic Other aftercare (1 source) [facility] (current) use of antibiotics; Translations: [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 (current) use of antibiotics] Onset: 01-12-2025 Episodic [...] Test Name Value Interpretation Reference Range Facility Prothrombin Time w/INRon INR Coag (PPP) [Relative time] 3.4 {INR} Normal [facility] Comment on above: Order Comment: 413.2 Performed By: #### L 500.0397, L100.0100, L300.3900 #### [facility] [place], [address] PT Coag (PPP) [Time] 35.0 s High 11.7-14.9 [facility] Comment on above: Order Comment: 413.2 Performed By: #### L 500.4050, L100.0100, L300.3900 #### [facility] [address] [place], [address] Prothrombin Time w/INRon INR Coag (PPP) [Relative time] 5.2 {INR} Invalid Interpretation Code [facility] Comment on above: Order Comment: 413.2 Result Comment: CRIT ICAL VALUE CALLED TO ROCHELLE BERG ([facility]) 04/18/25 0842 Brett Stack. RESULTS READ BACK BY SAME. Performed By: #### L 500.4050, L100.0100, L300.3900 #### [facility] [address] [place], [address] PT Coag (PPP) [Time] 48.9 s High 11.7-14.9 [facility] Comment on above: Order Comment: 413.2 Performed By: #### L 500.4050, L100.0100, L300.3900 #### [facility] [address] [place], [address] Protime w/INR Fingerstickon 04-18-2025 INR Coag (PPP) [Relative time] 6.0 {INR} Invalid Interpretation Code [facility] Comment on above: Result Comment: Crit ical Value > 4.0 Performed By: #### L 9200.0000 #### [facility] [address] [place], [address] Protime Coagsen 56.7 SEC High 11.7-14.9 [facility] Comment on above: Performed By: #### L 9200.0000 #### [facility] [address] [place], [address] CBC W Auto Differential pane l (Bld)on 04-17-2025 Basophils (Bld) [#/Vol] 0.1 10*3/uL 0.0 - 0.2 10*3/uL [facility] Basophils/100 WBC (Bld) 1.4 % 0.0 - 2.0 % [facility] Eosinophils (Bld) [#/Vol] 0.2 10*3/uL 0.0 - 0.5 10*3/uL [facility] Eosinophils/100 WBC (Bld) 3.3 % 0.0 - 6.0 % [facility] Erythrocyte distribution width (RBC) [Ratio] 16.6 % High 11.5 - 15.0 % [facility] Hematocrit (Bld) [Volume fraction] 29.6 % Low 40.0 - 52.0 % [facility] Hemoglobin (Bld) [Mass/Vol] 9.6 g/dL Low 13.0 - 18.0 g/dL [facility] Immature granulocytes (Bld) [#/Vol] 0 10*3/uL NINF - 0.1 10*3/uL [facility] Immature granulocytes/100 WBC (Bld) 0.4 % 0.0 - 2.0 % [facility] Interpretation and review of laboratory results Abnormal [facility] Lymphocytes (Bld) [#/Vol] 1 10*3/uL 1.0 - 4.3 10*3/uL [facility] Lymphocytes/100 WBC (Bld) 13.3 % Low 15.0 - 45.0 % [facility] MCH (RBC) [Entitic mass] 29.3 pg 26. 0 - 34.[address] [facility] MCHC (RBC) [Mass/Vol] 32.4 % 30.5 - 36.0 % [facility] MCV (RBC) [Entitic vol] 90.2 fL 77.0 - 99.0 fL [facility] Monocytes (Bld) [#/Vol] 1.1 10*3/uL High 0.0 - 0.9 10*3/uL [facility] Monocytes/100 WBC (Bld) 15.2 % High 5.0 - 13.0 % [facility] Neutrophils (Bld) [#/Vol] 4.8 10*3/uL 1.8 - 7.5 10*3/uL [facility] Neutrophils/100 WBC (Bld) 66.4 % 38.0 - 82.0 % [facility] Nucleated RBC/100 WBC (Bld) [Ratio] 0 % [facility] Platelet mean volume (Bld) [Entitic vol] 9.3 fL 9.0 - 12.[address] [facility] Platelets (Bld) [#/Vol] 381 10*3/uL 140 - 440 10*3/uL [facility] RBC (Bld) [#/Vol] 3.28 10*6/uL Low 4.40 - 5.9 0 10*6/uL [facility] WBC (Bld) [#/Vol] 7.3 10*3/uL 3.6 - 10.7 10*3/uL [facility] CBC WITH AUTO DIFFERENTIALon 04-17-2025 Basophils (Bld) [#/Vol] 0.1 10*3/uL Normal 0.0-0.2 [facility] Comment on above: Performed By: #### L [id number] ####Loan Review Analyst: FENG CONSTANTINO ([id number])[facility] [place] ([facility])[address] [place] [address] Basophils/100 WBC (Bld) 1.4 % Normal 0.0-2.[address] [facility] Comment on above: Performed By: #### L [id number] ####Loan Review Analyst: FENG CONSTANTINO ([id number])[facility] ([facility])[address] [place] [address] Eosinophils (Bld) [#/Vol] 0.2 10*3/uL Normal 0.0-0.5 [facility] Comment on above: Performed By: #### L [id number] ####Loan Review Analyst: FENG CONSTANTINO ([id number])[facility] [place] (SBHLAB)[address] [place] [address] Eosinophils/100 WBC (Bld) 3.3 % Normal 0.0-6.0 [facility] Comment on above: Performed By: #### L [id number] ####Loan Review Analyst: FENG CONSTANTINO ([id number])[facility] (SBHL[facility])[address] [place] [address] Erythrocyte distribution width (RBC) [Ratio] 16.6 % High 11.5-15.0 [facility] Comment on above: Performed By: #### L [id number] ####Loan Review Analyst: FENG COLEGEORGE ([id number])[facility] [place] (SBHLAB)[address] Hematocrit (Bld) [Volume fraction] 29.6 % Low 40.0-52.0 [facility] Comment on above: Performed By: #### L [id number] ####Loan Review Analyst: FENG COLEGEORGE ([id number])[facility] [place] (SBHLAB)[address] Hemoglobin (Bld) [Mass/Vol] 9.6 g/dL Low 13.0-18.0 [facility] Comment on above: Performed By: #### L [id number] ####Loan Review Analyst: FENG COLEGEORGE ([id number])[facility] ([facility])[address] IMMATURE GRANS % 0.4 % Normal 0.0-2.0 [facility] Comment on above: Performed By: #### L [id number] ####Loan Review Analyst: FENG COLEGEORGE ([id number])[facility] IMMATURE GRANS ABSOLUTE 0.0 10*3/uL Normal <0.1 [facility] Comment on above: Performed By: #### L [id number] ####Loan Review Analyst: FENG CONSTANTINO ([id number])[facility] [place] (SBHLAB)[address] Lymphocytes (Bld) [#/Vol] 1.0 10*3/uL Normal 1.0-4.3 [facility] Comment on above: Performed By: #### L [id number] ####Loan Review Analyst: FENG CONSTANTINO ([id number])[facility] (SB[facility])[address] [place] [address] [place] Lymphocytes/100 WBC (Bld) 13.3 % Low 15.0-45.0 [facility] Comment on above: Performed By: #### L [id number] ####Loan Review Analyst: FENG CONSTANTINO ([id number])[facility] [place] (SBHLAB)[address] MCH (RBC) [Entitic mass] 29.3 pg Normal 26.0-34.0 [facility] Comment on above: Performed By: #### L [id number] ####Loan Review Analyst: FENG CONSTANTINO ([id number])[facility] [place] (SB[facility])[address] MCHC 32.4 % Normal 30.5-36.0 [facility] Comment on above: Performed By: #### L [id number] ####Loan Review Analyst: FENG COLEGEORGE ([id number])[facility] [place] (SBHLAB)[address] [place] [address] MCV (RBC) [Entitic vol] 90.2 fL Normal 77.0-99.0 [facility] Comment on above: Performed By: #### L [id number] ####Loan Review Analyst: FENG CONSTANTINO ([id number])[facility] [place] (SBHLAB)[address] [place] [address] Monocytes (Bld) [#/Vol] 1.1 10*3/uL High 0.0-0.9 [facility] Comment on above: Performed By: #### L [id number] ####Loan Review Analyst: FENG CONSTANTINO ([id number])[facility] [place] (SB[facility])[address] [place] [address] Monocytes/100 WBC (Bld) 15.2 % High 5.0-13.0 [facility] Comment on above: Performed By: #### L [id number] ####Loan Review Analyst: FENG CONSTANTINO ([id number])[facility] (SB[facility])[address] [place] [address] NEUTROPHILS ABSOLUTE 4.8 10*3/uL Normal 1.8-7.5 [facility] Comment on above: Performed By: #### L [id number] ####Loan Review Analyst: FENG CONSTANTINO ([id number])[facility] [place] (SBHLAB)[address] Neutrophils/100 WBC (Bld) 66.4 % Normal 38.0-82.0 [facility] Comment on above: Performed By: #### L [id number] ####Loan Review Analyst: FENG CONSTANTINO ([id number])[facility] [place] (SBHL[facility])[address] NRBC 0.0 /100 WBCs Normal 0.0-2.0 [facility] Comment on above: Performed By: #### L [id number] ####Loan Review Analyst: FENG CONSTANTINO ([id number])[facility] ([facility])[address] [place] [address] Platelet mean volume (Bld) [Entitic vol] 9.3 fL Normal 9.0-12.7 [facility] Comment on above: Performed By: #### L [id number] ####Loan Review Analyst: FENG CONSTANTINO ([id number])[facility] ([facility])[address] Platelets (Bld) [#/Vol] 381 10*3/uL Normal 140-440 [facility] Comment on above: Performed By: #### L [id number] ####Loan Review Analyst: FENG CONSTANTINO ([id number])[facility] [place] (SBHLAB)[address] [place] [address] [place] RBC (Bld) [#/Vol] 3.28 10*6/uL Low 4.40-5.90 [facility] Comment on above: Performed By: #### L [id number] ####Loan Review Analyst: FENG CONSTANTINO ([id number])[facility] ([facility])[address] [place] [address] [place] WBC (Bld) [#/Vol] 7.3 10*3/uL Normal 3.6-10.7 [facility] Comment on above: Performed By: #### L [id number] ####Loan Review Analyst: FENG CONSTANTINO ([id number])[facility] (SB[facility])[address] COMPREHENSIVE METABOLIC PANE Victor M 04-17-2025 Albumin [Mass/Vol] 2.3 g/dL Low 3.5-5.0 [facility] Comment on above: Performed By: #### L [id number] ####Loan Review Analyst: FENG CONSTANTINO ([id number])[facility] (SB[facility])[address] ALP [Catalytic activity/Vol] 294 U/L High 40-150 [facility] Comment on above: Performed By: #### L [id number] ####Loan Review Analyst: FENG CONSTANTINO ([id number])[facility] ([facility])[address] ALT [Catalytic activity/Vol] 6 U/L Normal <40 [facility] Comment on above: Performed By: #### L [id number] ####Loan Review Analyst: FENG CONSTANTINO ([id number])[facility] ([facility])[address] Anion gap [Moles/Vol] 11 mmol/L Normal 3-13 [facility] Comment on above: Performed By: #### L [id number] ####Loan Review Analyst: FENG CONSTANTINO ([id number])[facility] (SBHL[facility])[address] AST [Catalytic activity/Vol] 57 U/L High <34 [facility] Comment on above: Performed By: #### L [id number] ####Loan Review Analyst: FENG CONSTANTINO ([id number])[facility] (SBHLAB)[address] [place] [address] Bilirubin [Mass/Vol] 0.7 mg/dL Normal <1.2 [facility] Comment on above: Performed By: #### L [id number] ####Loan Review Analyst: FENG CONSTANTINO ([id number])[facility] [place] (SB[facility])[address] Calcium [Mass/Vol] 9.5 mg/dL Normal 8.4-10.2 [facility] Comment on above: Performed By: #### L [id number] ####Loan Review Analyst: FENG CONSTANTINO ([id number])[facility] [place] (SB[facility])[address] Chloride [Moles/Vol] 100 mmol/L Normal 98-107 [facility] Comment on above: Performed By: #### L [id number] ####Loan Review Analyst: FENG CONSTANTINO ([id number])[facility] [place] (SB[facility])[address] CO2 [Moles/Vol] 25 mmol/L Normal 22-29 [facility] Comment on above: Performed By: #### L [id number] ####Loan Review Analyst: FENG CONSTANTINO ([id number])[facility] [place] (SB[facility])[address] Creatinine [Mass/Vol] 4.18 mg/dL High 0.72-1.25 [facility] Comment on above: Performed By: #### L [id number] ####Loan Review Analyst: FENG CONSTANTINO ([id number])[facility] [place] (SBHLAB)[address] [place] [address] [place] GLOMERULAR FILTRATION RATE ML/MIN/1.73 SQ M.PREDICTED 15.6 mL/min/1.73m*2 Low >60.0 [facility] Comment on above: Result Comment: Calc ulation based on the Chronic Kidney Disease Epidemiology Collaboration (CKD-EPI) equation refit without adjustment for race Performed By: #### L [id number] ####Loan Review Analyst: FENG CONSTANTINO ([id number])[facility] [place] (SB[facility])[address] [place] [address] [place] Glucose [Mass/Vol] 98 mg/dL Normal 74-100 [facility] Comment on above: Performed By: #### L [id number] ####Loan Review Analyst: FENG CONSTANTINO ([id number])[facility] [place] (SB[facility])[address] Potassium [Moles/Vol] 5.7 mmol/L High 3.5-5.1 [facility] Comment on above: Result Comment: [facility] potassium values may be up to 0.5 mmol/L lower than serum values. Performed By: #### L [id number] ####Loan Review Analyst: FENG CONSTANTINO ([id number])[facility] [place] (SB[facility])[address] Protein [Mass/Vol] 7.7 g/dL Normal 6.4-8.3 [facility] Comment on above: Performed By: #### L [id number] ####Loan Review Analyst: FENG CONSTANTINO ([id number])[facility] ([facility])[address] Sodium [Moles/Vol] 136 mmol/L Normal 136-145 [facility] Comment on above: Performed By: #### L [id number] ####Loan Review Analyst: FENG CONSTANTINO ([id number])[facility] [place] (SBHLAB)[address] [place] [address] Urea nitrogen [Mass/Vol] 48 mg/dL High 9-23 [facility] Comment on above: Performed By: #### L [id number] ####Loan Review Analyst: FENG OCNSTANTINO ([id number])[facility] ([facility])[address] Comprehensive metabolic 1998 panelon 04-17-2025 Albumin [Mass/Vol] 2.3 g/dL Low 3.5 - 5.0 g/dL [facility] ALP [Catalytic activity/Vol] 294 U/L High 40 - 150 U/L [facility] ALT [Catalytic activity/Vol] 6 U/L NINF - 40 U/L [facility] Anion gap [Moles/Vol] 11 mmol/L 3 - 13 mmol/L [facility] AST [Catalytic activity/Vol] 57 U/L High NINF - 34 U/L [facility] Bilirubin [Mass/Vol] 0.7 mg/dL NINF - 1.2 mg/dL [facility] Calcium [Mass/Vol] 9.5 mg/dL 8.4 - 10. 2 mg/dL [facility] Chloride [Moles/Vol] 100 mmol/L 98 - 10 7 mmol/L [facility] CO2 [Moles/Vol] 25 mmol/L 22 - 29 mmol/L [facility] Creatinine [Mass/Vol] 4.18 mg/dL High 0.72 - 1.25 mg/dL [facility] GFR/1.73 sq M.predicted (S/P/Bld) [Vol rate/Area] 15.6 mL/min Low - PINF [facility] Comment on above: Calculation based on the Chronic Kidney Disease Epidemiology Collaboration (CKD-EPI) equation refit without adjustment for race Glucose [Mass/Vol] 98 mg/dL 74 - 100 mg/dL [facility] Interpretation and review of laboratory results Abnormal [facility] Potassium [Moles/Vol] 5.7 mmol/L High 3.5 - 5.1 mmol/L [facility] Comment on above: Plasma potassium macey ues may be up to 0.5 mmol/L lower than serum values. Protein [Mass/Vol] 7.7 g/dL 6.4 - 8.3 g/dL [facility] Sodium [Moles/Vol] 136 mmol/L 136 - 145 mmol/L [facility] Urea nitrogen [Mass/Vol] 48 mg/dL High 9 - 23 mg/d L [facility] ED Nursing Noteon 04-17-2025 [facility] ED Nursing Note PIV placed, blood collected for lab work, pt states it hurts and he does not want an PIV left in, If I leave it he will rip it out. PIV Dc'd Normal [facility] ED Provider Noteon 5 ED Provider Note Normal [facility] - CoagulationOrde red By: Yifan Howard on 04-17-2025 PT Coag (Bld) [Time] s High 9.0 - 12.0 s [facility] PROTHROMBIN TIMEon 5 INR Coag (PPP) [Relative time] {INR} Critically high 0.9-1.1 [facility] Comment on above: Performed By: #### L [id number] ####Loan Review Analyst: FENG CONSTANTINO ([id number])[facility] (SB[facility])[address] [place], [place] [address] [place] [address] PT Coag (PPP) [Time] s High 9.0-12.0 [facility] Comment on above: Performed By: #### L AB320 ####Loan Review Analyst: FENG COLEGEORGE ([id number])[facility] ([facility])[address] [place] [address] [place] PT Coag (Bld) [Time]Ordered By: Yifan Howard on 04-17-2025 INR Coag (PPP) [Relative time] Critically high 0.9 - 1.1 [facility] Interpretation and review of laboratory results Abnormal [facility] Prothrombin Time w/INRon INR Coag (PPP) [Relative time] 10.8 {INR} Invalid Interpretation Code [facility] Comment on above: Order Comment: 412.2 Result Comment: CRIT ICAL VALUE CALLED TO LEXX BERG ([facility]) 04/17/25 0831 Brett Stack. RESULTS READ BACK BY SAME. Performed By: #### L 300.3900 #### [facility] [address] [place], [place], [id number] PT Coag (PPP) [Time] 87.5 s High 11.7-14.9 [facility] Comment on above: Order Comment: 412.2 Performed By: #### L 300.3900 #### [facility] [address] [place], [place], [id number] CBC W/Diff, Automatedon 03-28 Absolute Lymph 0.94 X10 3/uL Normal 0.83-4.51 [facility] Comment on above: Order Comment: 413.2 Performed By: #### L 500.4050, L100.0100, L300.3900 #### [facility] [address] [place], [address] Absolute Neut 3.9 X10 3/uL Normal 2.0-7.7 [facility] Comment on above: Order Comment: 413.2 Performed By: #### L 500.4050, L100.0100, L300.3900 #### [facility] [address] [place], [address] Basophils/100 WBC (Bld) 1.7 % High 0-1 [facility] Comment on above: Order Comment: 413.2 Performed By: #### L 500.4050, L100.0100, L300.3900 #### [facility] [address] [place], [address] Eosinophils/100 WBC (Bld) 4.3 % Normal 0-5 [facility] Comment on above: Order Comment: 413.2 Performed By: #### L 500.4050, L100.0100, L300.3900 #### [facility] [address] [place], [address] Erythrocyte distribution width (RBC) [Ratio] 16.3 % High 11.6-14.6 [facility] Comment on above: Order Comment: 413.2 Performed By: #### L 500.4050, L100.0100, L300.3900 #### [facility] [address] [place], [address] Hematocrit (Bld) [Volume fraction] 29.3 % Low 40-54 [facility] Comment on above: Order Comment: 413.2 Performed By: #### L 500.4050, L100.0100, L300.3900 #### [facility] [address] [place], [address] Hemoglobin (Bld) [Mass/Vol] 9.4 g/dL Low 13.0-16.5 [facility] Comment on above: Order Comment: 413.2 Performed By: #### L 500.4050, L100.0100, L300.3900 #### [facility] [address] [place], [address] IG% 0.800 Normal 0.0-0.9 [facility] Comment on above: Order Comment: 413.2 Result Comment: IG% - Immature Granulocytes (promyelocytes, myelocytes and metamyelocytes) > 1% indicates that a LEFT SHIFT is Present. Performed By: #### L 500.4050, L100.0100, L300.3900 #### [facility] [address] [place], [address] Lymphocytes/100 WBC (Bld) 15.7 % Low 19-41 [facility] Comment on above: Order Comment: 413.2 Performed By: #### L 500.4050, L100.0100, L300.3900 #### [facility] [address] [place], [address] MCH (RBC) [Entitic mass] 29.7 pg Normal 27.0-32.0 [facility] Comment on above: Order Comment: 413.2 Performed By: #### L 500.4050, L100.0100, L300.3900 #### [facility] [address] [place], [address] MCHC (RBC) [Mass/Vol] 32.1 g/dL Normal 32-36 [facility] Comment on above: Order Comment: 413.2 Performed By: #### L 500.4050, L100.0100, L300.3900 #### [facility] [address] [place], [address] MCV (RBC) [Entitic vol] 92.4 fL Normal 80-94 [facility] Comment on above: Order Comment: 413.2 Performed By: #### L 500.4050, L100.0100, L300.3900 #### [facility] [address] [place], [address] Monocytes/100 WBC (Bld) 13.0 % High 0-10 [facility] Comment on above: Order Comment: 413.2 Performed By: #### L 500.4050, L100.0100, L300.3900 #### [facility] [address] [place], [address] Neutrophils/100 WBC (Bld) 64.5 % Normal 47-70 [facility] Comment on above: Order Comment: 413.2 Performed By: #### L 500.4050, L100.0100, L300.3900 #### [facility] [address] [place], [address] Nucleated RBC (Bld) [#/Vol] 0 10*3/uL Normal 0-5 [facility] Comment on above: Order Comment: 413.2 Performed By: #### L 500.4050, L100.0100, L300.3900 #### [facility] [address] [place], [address] Platelet mean volume (Bld) [Entitic vol] 9.5 fL Normal 6.2-12.0 [facility] Comment on above: Order Comment: 413.2 Performed By: #### L 500.4050, L100.0100, L300.3900 #### [facility] [address] [place], [address] Platelets (Bld) [#/Vol] 397 10*3/uL Normal 150-450 [facility] Comment on above: Order Comment: 413.2 Performed By: #### L 500.4050, L100.0100, L300.3900 #### [facility] [address] [place], [address] RBC (Bld) [#/Vol] 3.17 10*6/uL Low 4.6-6.2 [facility] Comment on above: Order Comment: 413.2 Performed By: #### L 500.4050, L100.0100, L300.3900 #### [facility] [address] [place], [address] RDW SD 54.5 fl High 35.1-43.9 [facility] Comment on above: Order Comment: 413.2 Performed By: #### L 500.4050, L100.0100, L300.3900 #### [facility] [address] [place], [address] WBC (Bld) [#/Vol] 6.0 10*3/uL Normal 4.4-11.0 [facility] Comment on above: Order Comment: 413.2 Performed By: #### L 500.4050, L100.0100, L300.3900 #### [facility] [address] [place], [address] CT CHEST WO IV CONTRASTon CT CHEST WO IV CONTRAST Normal S [facility] Comprehensive Metabolic Prof ilon 04-16-2025 Albumin [Mass/Vol] 3.1 g/dL Low 3.5-5.0 [facility] Comment on above: Order Comment: 413.2 Performed By: #### L 500.4050, L100.0100, L300.3900 #### [facility] [address] [place], [address] Albumin/Globulin [Mass ratio] 0.7 {ratio} Low 0.9-2.4 [facility] Comment on above: Order Comment: 413.2 Performed By: #### L 500.4050, L100.0100, L300.3900 #### [facility] [address] [place], [address] ALK PHOS 331 U/L High 40-129 [facility] Comment on above: Order Comment: 413.2 Performed By: #### L 500.4050, L100.0100, L300.3900 #### [facility] [address] [place], [address] ALT [Catalytic activity/Vol] 13 U/L Normal <=46 [facility] Comment on above: Order Comment: 413.2 Performed By: #### L 500.4050, L100.0100, L300.3900 #### [facility] [address] [place], [address] AST [Catalytic activity/Vol] 41 U/L High <=37 [facility] Comment on above: Order Comment: 413.2 Performed By: #### L 500.4050, L100.0100, L300.3900 #### [facility] [address] [place], [address] Bilirubin [Mass/Vol] 0.68 mg/dL Normal 0.00-1.30 [facility] Comment on above: Order Comment: 413.2 Performed By: #### L 500.4050, L100.0100, L300.3900 #### [facility] [address] [place], [address] BUN/CRE 13.0 RATIO Normal 10-20 [facility] Comment on above: Order Comment: 413.2 Performed By: #### L 500.4050, L100.0100, L300.3900 #### [facility] [address] [place], [address] Calcium [Mass/Vol] 10.2 mg/dL Normal 7.6-11.0 [facility] Comment on above: Order Comment: 413.2 Performed By: #### L 500.4050, L100.0100, L300.3900 #### [facility] [address] [place], [address] Chloride [Moles/Vol] 96 mmol/L Low 98-108 [facility] Comment on above: Order Comment: 413.2 Performed By: #### L 500.4050, L100.0100, L300.3900 #### [facility] [address] [place], [address] CO2 [Moles/Vol] 22.7 mmol/L Normal 21.0-32.0 [facility] Comment on above: Order Comment: 413.2 Performed By: #### L 500.4050, L100.0100, L300.3900 #### [facility] [address] [place], [address] Creatinine [Mass/Vol] 5.22 mg/dL High 0.70-1.20 [facility] Comment on above: Order Comment: 413.2 Performed By: #### L 500.4050, L100.0100, L300.3900 #### [facility] [address] [place], [address] GAP 16 High 5-15 [facility] Comment on above: Order Comment: 413.2 Performed By: #### L 500.4050, L100.0100, L300.3900 #### [facility] [address] [place], [address] GFR/1.73 sq M.predicted among non-blacks MDRD (S/P/Bld) [Vol rate/Area] 12 mL/min/{1.73_m2} Low >60 [facility] Comment on above: Order Comment: 413.2 Result Comment: mL/m in/1.73m2 CKD-EPI Creatinine Equation (2020) Performed By: #### L 500.4050, L100.0100, L300.3900 #### [facility] [address] [place], [address] Globulin (S) [Mass/Vol] 4.4 g/dL High 2.2-4.2 [facility] Comment on above: Order Comment: 413.2 Performed By: #### L 500.4050, L100.0100, L300.3900 #### [facility] [address] [place], [address] Glucose [Mass/Vol] 91 mg/dL Normal 70-99 [facility] Comment on above: Order Comment: 413.2 Performed By: #### L 500.4050, L100.0100, L300.3900 #### [facility] [address] [place], [address] Potassium [Moles/Vol] 6.1 mmol/L Invalid Interpretation Code 3.3-5.1 [facility] Comment on above: Order Comment: 413.2 Result Comment: Crit ical Result(s) Called to: Cindy PITT ([facility]) by: Ella??Results read back by same. Performed By: #### L 500.4050, L100.0100, L300.3900 #### [facility] [address] [place], [address] Sodium [Moles/Vol] 134 mmol/L Normal 133-145 [facility] Comment on above: Order Comment: 413.2 Performed By: #### L 500.4050, L100.0100, L300.3900 #### [facility] [address] [place], [address] T PROT 7.5 g/dL Normal 5.9-8.4 [facility] Comment on above: Order Comment: 413.2 Performed By: #### L 500.4050, L100.0100, L300.3900 #### [facility] [address] [place], [address] Urea nitrogen [Mass/Vol] 68 mg/dL High 4-19 [facility] Comment on above: Order Comment: 413.2 Performed By: #### L 500.4050, L100.0100, L300.3900 #### [facility] [address] [place], [address] Prothrombin Time w/INRon INR Coag (PPP) [Relative time] 7.7 {INR} Invalid Interpretation Code [facility] Comment on above: Order Comment: 413.2 Performed By: #### L 500.4050, L100.0100, L300.3900 #### [facility] [address] [place], [address] PT Coag (PPP) [Time] 66.6 s High 11.7-14.9 [facility] Comment on above: Order Comment: 413.2 Performed By: #### L 500.4050, L100.0100, L300.3900 #### [facility] [address] [place], [address] Prothrombin Time w/INRon INR Coag (PPP) [Relative time] 3.7 {INR} Normal [facility] Comment on above: Order Comment: 413.2 Performed By: #### L 500.4050, L100.0100, L300.3900 #### [facility] [address] [place], [address] PT Coag (PPP) [Time] 37.3 s High 11.7-14.9 [facility] Comment on above: Order Comment: 413.2 Performed By: #### L 500.4050, L100.0100, L300.3900 #### [facility] [address] [place], [address] 36on 04-11-2025 36 Scheduled next avail with Dr. Mata. [facility] 36 Name of Caller: Sabino Contact Reason for Appointment: Sabino requesting to schedule patient appointment for podiatry. Please advise. Office Name: Ortho Medication Refills need, if any: n/a Medication Name: n/a [facility] BASIC METABOLIC PANELon 03-27 Anion gap [Moles/Vol] 14 mmol/L High 3-13 [facility] Comment on above: Performed By: #### L AB15 ####Loan Review Analyst: FENG CONSTANTINO ([id number])[facility] ([facility])[address] Calcium [Mass/Vol] 9.6 mg/dL Normal 8.4-10.2 [facility] Comment on above: Performed By: #### L AB15 ####Loan Review Analyst: FENG CONSTANTINO ([id number])[facility] [place] ([facility])[address] Chloride [Moles/Vol] 96 mmol/L Low 98-107 [facility] Comment on above: Performed By: #### L AB15 ####Loan Review Analyst: FENG CONSTANTINO ([id number])[facility] [place] ([facility])[address] CO2 [Moles/Vol] 26 mmol/L Normal 22-29 [facility] Comment on above: Performed By: #### L AB15 ####Loan Review Analyst: FENG CONSTANTINO ([id number])[facility] [place] ([facility])[address] Creatinine [Mass/Vol] 3.07 mg/dL High 0.72-1.25 [facility] Comment on above: Performed By: #### L AB15 ####Loan Review Analyst: FENG CONSTANTINO ([id number])[facility] [place] ([facility])[address] [place] [address] [place] GLOMERULAR FILTRATION RATE ML/MIN/1.73 SQ M.PREDICTED 22.6 mL/min/1.73m*2 Low >60.0 [facility] Comment on above: Result Comment: Calc ulation based on the Chronic Kidney Disease Epidemiology Collaboration (CKD-EPI) equation refit without adjustment for race Performed By: #### L AB15 ####Loan Review Analyst: FENG CONSTANTINO ([id number])[facility] [place] ([facility])[address] Glucose [Mass/Vol] 80 mg/dL Normal 74-100 [facility] Comment on above: Performed By: #### L AB15 ####Loan Review Analyst: FENG CONSTANTINO ([id number])[facility] ([facility])[address] Potassium [Moles/Vol] 4.6 mmol/L Normal 3.5-5.1 [facility] Comment on above: Result Comment: [facility] potassium values may be up to 0.5 mmol/L lower than serum values. Performed By: #### L AB15 ####Loan Review Analyst: FENG CONSTANTINO ([id number])[facility] ([facility])[address] Sodium [Moles/Vol] 136 mmol/L Normal 136-145 [facility] Comment on above: Performed By: #### L AB15 ####Loan Review Analyst: FENG CONSTANTINO ([id number])[facility] ([facility])[address] Urea nitrogen [Mass/Vol] 33 mg/dL High 9-23 [facility] Comment on above: Performed By: #### L AB15 ####Loan Review Analyst: FENG CONSTANTINO ([id number])[facility] (HLAB)[address] [place] [address] Basic metabolic 1998 panelon 04-09-2025 Anion gap [Moles/Vol] 14 mmol/L High 3 - 13 mmol/L [facility] Calcium [Mass/Vol] 9.6 mg/dL 8.4 - 10. 2 mg/dL [facility] Chloride [Moles/Vol] 96 mmol/L Low 98 - 10 7 mmol/L [facility] CO2 [Moles/Vol] 26 mmol/L 22 - 29 mmol/L [facility] Creatinine [Mass/Vol] 3.07 mg/dL High 0.72 - 1.25 mg/dL [facility] GFR/1.73 sq M.predicted (S/P/Bld) [Vol rate/Area] 22.6 mL/min Low - PINF [facility] Comment on above: Calculation based on the Chronic Kidney Disease Epidemiology Collaboration (CKD-EPI) equation refit without adjustment for race Glucose [Mass/Vol] 80 mg/dL 74 - 100 mg/dL [facility] Interpretation and review of laboratory results Abnormal [facility] Potassium [Moles/Vol] 4.6 mmol/L 3.5 - 5.1 mmol/L [facility] Comment on above: Plasma potassium macey ues may be up to 0.5 mmol/L lower than serum values. Sodium [Moles/Vol] 136 mmol/L 136 - 145 mmol/L [facility] Urea nitrogen [Mass/Vol] 33 mg/dL High 9 - 23 mg/d L [facility] CBC W Auto Differential pane l (Bld)on 04-09-2025 Basophils (Bld) [#/Vol] 0.1 10*3/uL 0.0 - 0.2 10*3/uL [facility] Basophils/100 WBC (Bld) 1.2 % 0.0 - 2.0 % [facility] Eosinophils (Bld) [#/Vol] 0.3 10*3/uL 0.0 - 0.5 10*3/uL [facility] Eosinophils/100 WBC (Bld) 3.3 % 0.0 - 6.0 % [facility] Erythrocyte distribution width (RBC) [Ratio] 15.9 % High 11.5 - 15.0 % [facility] Hematocrit (Bld) [Volume fraction] 29.3 % Low 40.0 - 52.0 % [facility] Hemoglobin (Bld) [Mass/Vol] 9.5 g/dL Low 13.0 - 18.0 g/dL [facility] Immature granulocytes (Bld) [#/Vol] 0 10*3/uL NINF - 0.1 10*3/uL [facility] Immature granulocytes/100 WBC (Bld) 0.5 % 0.0 - 2.0 % [facility] Interpretation and review of laboratory results Abnormal [facility] Lymphocytes (Bld) [#/Vol] 1.1 10*3/uL 1.0 - 4.3 10*3/uL [facility] Lymphocytes/100 WBC (Bld) 13.9 % Low 15.0 - 45.0 % [facility] MCH (RBC) [Entitic mass] 29.3 pg 26. 0 - 34.0 pg [facility] MCHC (RBC) [Mass/Vol] 32.4 % 30.5 - 36.0 % [facility] MCV (RBC) [Entitic vol] 90.4 fL 77.0 - 99.[address] [facility] Monocytes (Bld) [#/Vol] 0.8 10*3/uL 0.0 - 0.9 10*3/uL [facility] Monocytes/100 WBC (Bld) 9.8 % 5.0 - 13.0 % [facility] Neutrophils (Bld) [#/Vol] 5.5 10*3/uL 1.8 - 7.5 10*3/uL [facility] Neutrophils/100 WBC (Bld) 71.3 % 38.0 - 82.0 % [facility] Nucleated RBC/100 WBC (Bld) [Ratio] 0 % [facility] Platelet mean volume (Bld) [Entitic vol] 9 fL 9.0 - 12.[address] [facility] Platelets (Bld) [#/Vol] 354 10*3/uL 140 - 440 10*3/uL [facility] RBC (Bld) [#/Vol] 3.24 10*6/uL Low 4.40 - 5.9 0 10*6/uL [facility] WBC (Bld) [#/Vol] 7.8 10*3/uL 3.6 - 10.7 10*3/uL [facility] CBC W/Diff, Automatedon 03-27-2024 Absolute Lymph 1.07 X10 3/uL Normal 0.83-4.51 [facility] Comment on above: Performed By: #### L 500.4050, L100.0100, L300.3900 #### [facility] [address] [place], [address] Absolute Neut 4.8 X10 3/uL Normal 2.0-7.7 [facility] Comment on above: Performed By: #### L 500.4050, L100.0100, L300.3900 #### [facility] [address] [place], [address] Basophils/100 WBC (Bld) 1.5 % High 0-1 [facility] Comment on above: Performed By: #### L 500.4050, L100.0100, L300.3900 #### [facility] [address] [place], [address] Eosinophils/100 WBC (Bld) 4.6 % Normal 0-5 [facility] Comment on above: Performed By: #### L 500.4050, L100.0100, L300.3900 #### [facility] [address] [place], [address] Erythrocyte distribution width (RBC) [Ratio] 16.0 % High 11.6-14.6 [facility] Comment on above: Performed By: #### L 500.4050, L100.0100, L300.3900 #### [facility] [address] [place], [address] Hematocrit (Bld) [Volume fraction] 29.7 % Low 40-54 [facility] Comment on above: Performed By: #### L 500.4050, L100.0100, L300.3900 #### [facility] [address] [place], [address] Hemoglobin (Bld) [Mass/Vol] 9.5 g/dL Low 13.0-16.5 [facility] Comment on above: Performed By: #### L 500.4050, L100.0100, L300.3900 #### [facility] [address] [place], [address] IG% 0.700 Normal 0.0-0.9 [facility] Comment on above: Result Comment: IG% - Immature Granulocytes (promyelocytes, myelocytes and metamyelocytes) > 1% indicates that a LEFT SHIFT is Present. Performed By: #### L 500.4050, L100.0100, L300.3900 #### [facility] [address] [place], [address] Lymphocytes/100 WBC (Bld) 15.0 % Low 19-41 [facility] Comment on above: Performed By: #### L 500.4050, L100.0100, L300.3900 #### [facility] [address] [place], [address] MCH (RBC) [Entitic mass] 30.4 pg Normal 27.0-32.0 [facility] Comment on above: Performed By: #### L 500.4050, L100.0100, L300.3900 #### [facility] [address] [place], [address] MCHC (RBC) [Mass/Vol] 32.0 g/dL Normal 32-36 [facility] Comment on above: Performed By: #### L 500.4050, L100.0100, L300.3900 #### [facility] [address] [place], [address] MCV (RBC) [Entitic vol] 94.9 fL High 80-94 [facility] Comment on above: Performed By: #### L 500.4050, L100.0100, L300.3900 #### [facility] [address] [place], [address] Monocytes/100 WBC (Bld) 10.8 % High 0-10 [facility] Comment on above: Performed By: #### L 500.4050, L100.0100, L300.3900 #### [facility] [address] [place], [address] Neutrophils/100 WBC (Bld) 67.4 % Normal 47-70 [facility] Comment on above: Performed By: #### L 500.4050, L100.0100, L300.3900 #### [facility] [address] [place], [address] Nucleated RBC (Bld) [#/Vol] 0 10*3/uL Normal 0-5 [facility] Comment on above: Performed By: #### L 500.4050, L100.0100, L300.3900 #### [facility] [address] [place], [address] Platelet mean volume (Bld) [Entitic vol] 9.3 fL Normal 6.2-12.0 [facility] Comment on above: Performed By: #### L 500.4050, L100.0100, L300.3900 #### [facility] [address] [place], [address] Platelets (Bld) [#/Vol] 390 10*3/uL Normal 150-450 [facility] Comment on above: Performed By: #### L 500.4050, L100.0100, L300.3900 #### [facility] [address] [place], [address] RBC (Bld) [#/Vol] 3.13 10*6/uL Low 4.6-6.2 [facility] Comment on above: Performed By: #### L 500.4050, L100.0100, L300.3900 #### [facility] [address] [place], [address] RDW SD 55.3 fl High 35.1-43.9 [facility] Comment on above: Performed By: #### L 500.4050, L100.0100, L300.3900 #### [facility] [address] [place], [address] WBC (Bld) [#/Vol] 7.2 10*3/uL Normal 4.4-11.0 [facility] Comment on above: Performed By: #### L 500.4050, L100.0100, L300.3900 #### [facility] [address] [place], [address] CBC WITH AUTO DIFFERENTIALon 04-09-2025 Basophils (Bld) [#/Vol] 0.1 10*3/uL Normal 0.0-0.2 [facility] Comment on above: Performed By: #### L [id number] ####Loan Review Analyst: FENG CONSTANTINO ([id number])[facility] ([facility]AB)[address] Basophils/100 WBC (Bld) 1.2 % Normal 0.0-2.[address] [facility] Comment on above: Performed By: #### L [id number] ####Loan Review Analyst: FENG COLEGEORGE ([id number])[facility] ([facility])[address] Eosinophils (Bld) [#/Vol] 0.3 10*3/uL Normal 0.0-0.5 [facility] Comment on above: Performed By: #### L [id number] ####Loan Review Analyst: FENG CONSTANTINO ([id number])[facility] ([facility])[address] Eosinophils/100 WBC (Bld) 3.3 % Normal 0.0-6.0 [facility] Comment on above: Performed By: #### L [id number] ####Loan Review Analyst: FENG CONSTANTINO ([id number])[facility] ([facility])[address] Erythrocyte distribution width (RBC) [Ratio] 15.9 % High 11.5-15.0 [facility] Comment on above: Performed By: #### L [id number] ####Loan Review Analyst: FENG CONSTANTINO ([id number])[facility] ([facility])[address] Hematocrit (Bld) [Volume fraction] 29.3 % Low 40.0-52.0 [facility] Comment on above: Performed By: #### L [id number] ####Loan Review Analyst: FENG CONSTANTINO ([id number])[facility] ([facility])[address] [place] [address] [place] Hemoglobin (Bld) [Mass/Vol] 9.5 g/dL Low 13.0-18.0 [facility] Comment on above: Performed By: #### L [id number] ####Loan Review Analyst: FENG CONSTANTINO ([id number])[facility] ([facility])[address] IMMATURE GRANS % 0.5 % Normal 0.0-2.0 [facility] Comment on above: Performed By: #### L [id number] ####Loan Review Analyst: FENG CONSTANTINO ([id number])[facility] IMMATURE GRANS ABSOLUTE 0.0 10*3/uL Normal <0.1 [facility] Comment on above: Performed By: #### L [id number] ####Loan Review Analyst: FENG CONSTANTINO ([id number])[facility])[address] [place] [address] Lymphocytes (Bld) [#/Vol] 1.1 10*3/uL Normal 1.0-4.3 [facility] Comment on above: Performed By: #### L [id number] ####Loan Review Analyst: FENG CONSTANTINO ([id number])[facility])[address] [place] [address] Lymphocytes/100 WBC (Bld) 13.9 % Low 15.0-45.0 [facility] Comment on above: Performed By: #### L [id number] ####Loan Review Analyst: FENG CONSTANTINO ([id number])[facility] (SBAB)[address] MCH (RBC) [Entitic mass] 29.3 pg Normal 26.0-34.0 [facility] Comment on above: Performed By: #### L [id number] ####Loan Review Analyst: FENG CONSTANTINO ([phone])[facility] (SBAB)[address] MCHC 32.4 % Normal 30.5-36.0 [facility] Comment on above: Performed By: #### L [id number] ####Loan Review Analyst: FENG COLEGEORGE ([id number])[facility] (SBHLAB)[address] MCV (RBC) [Entitic vol] 90.4 fL Normal 77.0-99.0 [facility] Comment on above: Performed By: #### L [id number] ####Loan Review Analyst: FENG COLEGEORGE ([id number])[facility] [place] (SBHLAB)[address] Monocytes (Bld) [#/Vol] 0.8 10*3/uL Normal 0.0-0.9 [facility] Comment on above: Performed By: #### L [id number] ####Loan Review Analyst: FENG VILLAGOMEZALESIA ([id number])[facility] [place] ([facility])[address] Monocytes/100 WBC (Bld) 9.8 % Normal 5.0-13.0 [facility] Comment on above: Performed By: #### L [id number] ####Loan Review Analyst: FENG COLEGEORGE ([id number])[facility] (SBHLAB)[address] NEUTROPHILS ABSOLUTE 5.5 10*3/uL Normal 1.8-7.5 [facility] Comment on above: Performed By: #### L [id number] ####Loan Review Analyst: FENG COLEGEORGE ([id number])[facility] (SBHLAB)[address] Neutrophils/100 WBC (Bld) 71.3 % Normal 38.0-82.0 [facility] Comment on above: Performed By: #### L [id number] ####Loan Review Analyst: FENG COLEGEORGE ([id number])[facility] (SBHLAB)[address] NRBC 0.0 /100 WBCs Normal 0.0-2.0 [facility] Comment on above: Performed By: #### L [id number] ####Loan Review Analyst: FENG VILLAGOMEZMitzyGEORGE ([id number])[facility] ([facility])[address] Platelet mean volume (Bld) [Entitic vol] 9.0 fL Normal 9.0-12.7 [facility] Comment on above: Performed By: #### L [id number] ####Loan Review Analyst: FENG DOUGIE ([id number])[facility] ([facility])[address] Platelets (Bld) [#/Vol] 354 10*3/uL Normal 140-440 [facility] Comment on above: Performed By: #### L [id number] ####Loan Review Analyst: FENG DOUGIE ([id number])[facility] ([facility])[address] RBC (Bld) [#/Vol] 3.24 10*6/uL Low 4.40-5.90 [facility] Comment on above: Performed By: #### L [id number] ####Loan Review Analyst: FENG DOUGIE ([id number])[facility] ([facility])[address] WBC (Bld) [#/Vol] 7.8 10*3/uL Normal 3.6-10.7 [facility] Comment on above: Performed By: #### L [id number] ####Loan Review Analyst: FENG VILLAGOMEZALESIA ([id number])[facility] (SBHLAB)[address] Comprehensive Metabolic Prof joe 04-09-2025 Albumin [Mass/Vol] 3.1 g/dL Low 3.5-5.0 [facility] Comment on above: Performed By: #### L 500.4050, L100.0100, L300.3900 #### [facility] [place], [address] Albumin/Globulin [Mass ratio] 0.8 {ratio} Low 0.9-2.4 [facility] Comment on above: Performed By: #### L 500.4050, L100.0100, L300.3900 #### [facility] [address] [place], [address] ALK PHOS 282 U/L High 40-129 [facility] Comment on above: Performed By: #### L 500.4050, L100.0100, L300.3900 #### [facility] [address] [place], [address] ALT [Catalytic activity/Vol] 14 U/L Normal <=46 [facility] Comment on above: Performed By: #### L 500.4050, L100.0100, L300.3900 #### [facility] [address] [place], [address] AST [Catalytic activity/Vol] 38 U/L Normal <=37 [facility] Comment on above: Performed By: #### L 500.4050, L100.0100, L300.3900 #### [facility] [address] [place], [address] Bilirubin [Mass/Vol] 0.59 mg/dL Normal 0.00-1.30 [facility] Comment on above: Performed By: #### L 500.4050, L100.0100, L300.3900 #### [facility] [address] [place], [address] BUN/CRE 10.9 RATIO Normal 10-20 [facility] Comment on above: Performed By: #### L 500.4050, L100.0100, L300.3900 #### [facility] [address] [place], [address] Calcium [Mass/Vol] 9.8 mg/dL Normal 7.6-11.0 [facility] Comment on above: Performed By: #### L 500.4050, L100.0100, L300.3900 #### [facility] [address] [place], [address] Chloride [Moles/Vol] 98 mmol/L Normal 98-108 [facility] Comment on above: Performed By: #### L 500.4050, L100.0100, L300.3900 #### [facility] [address] [place], [address] CO2 [Moles/Vol] 26.0 mmol/L Normal 21.0-32.0 [facility] Comment on above: Performed By: #### L 500.4050, L100.0100, L300.3900 #### [facility] [address] [place], [address] Creatinine [Mass/Vol] 4.78 mg/dL High 0.70-1.20 [facility] Comment on above: Performed By: #### L 500.4050, L100.0100, L300.3900 #### [facility] [address] [place], [address] GAP 12 Normal 5-15 [facility] Comment on above: Performed By: #### L 500.4050, L100.0100, L300.3900 #### [facility] [address] [place], [address] GFR/1.73 sq M.predicted among non-blacks MDRD (S/P/Bld) [Vol rate/Area] 13 mL/min/{1.73_m2} Low >60 [facility] Comment on above: Result Comment: mL/m in/1.73m2 CKD-EPI Creatinine Equation (2020) Performed By: #### L 500.4050, L100.0100, L300.3900 #### [facility] [address] [place], [address] Globulin (S) [Mass/Vol] 4.2 g/dL Normal 2.2-4.2 [facility] Comment on above: Performed By: #### L 500.4050, L100.0100, L300.3900 #### [facility] [address] [place], [address] Glucose [Mass/Vol] 82 mg/dL Normal 70-99 [facility] Comment on above: Performed By: #### L 500.4050, L100.0100, L300.3900 #### [facility] [address] [place], [address] Potassium [Moles/Vol] 6.0 mmol/L Invalid Interpretation Code 3.3-5.1 [facility] Comment on above: Result Comment: Crit ical Result(s) Called at:04-09-25 09:40 TO ENID MENDOZA by: GEORGETTE BABCOCK??Results read back by same. Performed By: #### L 500.4050, L100.0100, L300.3900 #### [facility] [address] [place], [address] Sodium [Moles/Vol] 136 mmol/L Normal 133-145 [facility] Comment on above: Performed By: #### L 500.4050, L100.0100, L300.3900 #### [facility] [address] [place], [address] T PROT 7.3 g/dL Normal 5.9-8.4 [facility] Comment on above: Performed By: #### L 500.4050, L100.0100, L300.3900 #### [facility] [address] [place], [address] Urea nitrogen [Mass/Vol] 52 mg/dL High 4-19 [facility] Comment on above: Performed By: #### L 500.4050, L100.0100, L300.3900 #### [facility] [address] [place], [address] ED Nursing Noteon 04-09-2025 ED Nursing Note Consuelo Johnson here to transport pt back to facility. Normal [facility] ED Provider Noteon ED Provider Note Normal [facility] - Coagulationon 0 04-09-2025 PT Coag (Bld) [Time] 30.5 s High 9.0 - 12.0 s [facility] PROTHROMBIN TIMEon INR Coag (PPP) [Relative time] 3.0 {INR} High 0.9-1.1 [facility] Comment on above: Result Comment: Vaughn [...] Myocardial Infarction Performed By: #### Tameka [id number] ####Loan Review Analyst: FENG CONSTANTINO ([id number])[facility] ([facility])[address] [place] [address] PT Coag (PPP) [Time] 30.5 s High 9.0-12.0 [facility] Comment on above: Performed By: #### L [id number] ####Loan Review Analyst: FENG CONSTANTINO ([id number])[facility] ([facility])[address] PT Coag (Bld) [Time]on 04-09 INR Coag (PPP) [Relative time] 3 {INR} High 0.9 - 1.1 [facility] Comment on above: Recommended Anticoag ulant [...] and review of laboratory results Abnormal [facility] Phosphoruson 04-09-2025 Phosphate [Mass/Vol] 4.2 mg/dL Normal 2.7-4.5 [facility] Comment on above: Performed By: #### L 500.4050, L100.0100, L300.3900 #### [facility] [address] [place], [address] Prothrombin Time w/INRon INR Coag (PPP) [Relative time] 2.3 {INR} Normal [facility] Comment on above: Performed By: #### L 500.4050, L100.0100, L300.3900 #### [facility]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 [address] [place], [address] Comprehensive Metabolic Prof ilon 03-26-2025 Albumin [Mass/Vol] 3.2 g/dL Low 3.5-5.0 [facility] Comment on above: Order Comment: 413.2 Performed By: #### L 300.3900 #### [facility] [address] [place], [address] Albumin/Globulin [Mass ratio] 0.8 {ratio} Low 0.9-2.4 [facility] Comment on above: Order Comment: 413.2 Performed By: #### L 300.3900 #### [facility] [address] [place], [address] ALK PHOS 238 U/L High 40-129 [facility] Comment on above: Order Comment: 413.2 Performed By: #### L 300.3900 #### [facility] [address] [place], [address] ALT [Catalytic activity/Vol] 21 U/L Normal <=46 [facility] Comment on above: Order Comment: 413.2 Performed By: #### L 300.3900 #### [facility] [address] [place], [address] AST [Catalytic activity/Vol] 53 U/L High <=37 [facility] Comment on above: Order Comment: 413.2 Performed By: #### L 300.3900 #### [facility] [address] [place], [address] Bilirubin [Mass/Vol] 0.58 mg/dL Normal 0.00-1.30 [facility] Comment on above: Order Comment: 413.2 Performed By: #### L 300.3900 #### [facility] [address] [place], [address] BUN/CRE 6.9 RATIO Low 10-20 [facility] Comment on above: Order Comment: 413.2 Performed By: #### L 300.3900 #### [facility] [address] [place], [address] Calcium [Mass/Vol] 9.6 mg/dL Normal 7.6-11.0 [facility] Comment on above: Order Comment: 413.2 Performed By: #### L 300.3900 #### [facility] [address] [place], [address] Chloride [Moles/Vol] 102 mmol/L Normal 98-108 [facility] Comment on above: Order Comment: 413.2 Performed By: #### L 300.3900 #### [facility] [address] [place], [address] CO2 [Moles/Vol] 22.8 mmol/L Normal 21.0-32.0 [facility] Comment on above: Order Comment: 413.2 Performed By: #### L 300.3900 #### [facility] [address] [place], [address] Creatinine [Mass/Vol] 5.21 mg/dL High 0.70-1.20 [facility] Comment on above: Order Comment: 413.2 Performed By: #### L 300.3900 #### [facility] [address] [place], [address] GAP 14 Normal 5-15 [facility] Comment on above: Order Comment: 413.2 Performed By: #### L 300.3900 #### [facility] [address] [place], [address] GFR/1.73 sq M.predicted among non-blacks MDRD (S/P/Bld) [Vol rate/Area] 12 mL/min/{1.73_m2} Low >60 [facility] Comment on above: Order Comment: 413.2 Result Comment: mL/m in/1.73m2 CKD-EPI Creatinine Equation (2020) Performed By: #### L 300.3900 #### [facility] [address] [place], [address] Globulin (S) [Mass/Vol] 4.1 g/dL Normal 2.2-4.2 [facility] Comment on above: Order Comment: 413.2 Performed By: #### L 300.3900 #### [facility] [address] [place], [address] Glucose [Mass/Vol] 87 mg/dL Normal 70-99 [facility] Comment on above: Order Comment: 413.2 Performed By: #### L 300.3900 #### [facility] [address] [place], [address] Potassium [Moles/Vol] 4.9 mmol/L Normal 3.3-5.1 [facility] Comment on above: Order Comment: 413.2 Performed By: #### L 300.3900 #### [facility] [address] [place], [address] Sodium [Moles/Vol] 139 mmol/L Normal 133-145 [facility] Comment on above: Order Comment: 413.2 Performed By: #### L 300.3900 #### [facility] [address] [place], [address] T PROT 7.2 g/dL Normal 5.9-8.4 [facility] Comment on above: Order Comment: 413.2 Performed By: #### L 300.3900 #### [facility] [address] [place], [address] Urea nitrogen [Mass/Vol] 36 mg/dL High 4-19 [facility] Comment on above: Order Comment: 413.2 Performed By: #### L 300.3900 #### [facility] [address] [place], [address] Prothrombin Time w/INRon -2024 INR Coag (PPP) [Relative time] 3.3 {INR} Normal [facility] Comment on above: Order Comment: 413.2 Performed By: #### L 300.3900 #### [facility] [address] [place], [address] PT Coag (PPP) [Time] 34.4 s High 11.7-14.9 [facility] Comment on above: Order Comment: 413.2 Performed By: #### L 300.3900 #### [facility] [address] [place], [address] 36on 03-22-2025 36 Patient discharged to [facility] on 03/21 - please follow [facility] [employer] normalized rat io (INR) calculationOrdered By: Kayley Melendrez on 03-22-2025 INR Coag (Bld) [Relative time] 2.9 {INR} [facility] Prothrombin Time w/INRon INR Coag (PPP) [Relative time] 2.9 {INR} [facility] Comment on above: Performed By: #### L 500.4050, L100.0100, L300.3900 #### [facility] [address] [place], [address] PT Coag (PPP) [Time] 30.7 s High 11.7-14.9 [facility] Comment on above: Performed By: #### L 500.4050, L100.0100, L300.3900 #### [facility] [address] [place], [address] Prothrombin timeOrdered By: Kayley Melendrez on 03-22-2025 PT Coag (PPP) [Time] 30.7 s High 11.7-14.9 [facility] 30on 03-21-2025 30 [facility] [id number] 03-21-2025 [id number] [facility] [id number] MAR, Labs & Discharge med list transmitted to [facility] via [employer] per TCC request. Electronically signed by NELSON Rodrigues [facility] [id number] [facility] [id number] [facility] APTTon 03-21-2025 aPTT Coag (Bld) [Time] 50.7 s High 20.0-30.5 [facility] Comment on above: Result Comment: ORDE R COMMENTS:NOTE: The therapeutic time for Heparin anticoagulation, based on Xa activity inhibition, is an APTT of 46-80 seconds. Performed By: #### L AB320, [id number] ####Loan Review Analyst: DOMENICA JARA ([id number])[facility])[address] [place] [address] CBC (HEMOGRAM)on 03-21-2025 Erythrocyte distribution width (RBC) [Ratio] 19.9 % High 11.5-15.0 [facility] Comment on above: Performed By: #### L AB294 ####Loan Review Analyst: DOMENICA JARA ([id number])[facility])[address] [place] [address] Hematocrit (Bld) [Volume fraction] 29.2 % Low 40.0-52.0 [facility] Comment on above: Performed By: #### L AB294 ####Loan Review Analyst: DOMENICA JARA ([id number])[address] Hemoglobin (Bld) [Mass/Vol] 8.8 g/dL Low 13.0-18.0 [facility] Comment on above: Performed By: #### L AB294 ####Loan Review Analyst: DOMENICA JARA ([id number])[address] MCH (RBC) [Entitic mass] 30.2 pg Normal 26.0-34.0 [facility] Comment on above: Performed By: #### L AB294 ####Loan Review Analyst: DOMENICA JARA ([id number])[address] MCHC 30.1 % Low 30.5-36.0 [facility] Comment on above: Performed By: #### L AB294 ####Loan Review Analyst: DOMENICA JARA ([id number])[facility])[address] [place] [address] MCV (RBC) [Entitic vol] 100.3 fL High 77.0-99.0 [facility] Comment on above: Performed By: #### L AB294 ####Loan Review Analyst: DOMENICA JARA ([id number])[facility])[address] [place] [address] Platelet mean volume (Bld) [Entitic vol] 8.9 fL Low 9.0-12.7 [facility] Comment on above: Performed By: #### L AB294 ####Loan Review Analyst: DOMENICA JARA ([id number])[facility] ([facility])[address] [place] [address] Platelets (Bld) [#/Vol] 271 10*3/uL Normal 140-440 [facility] Comment on above: Performed By: #### L AB294 ####Loan Review Analyst: DOMENICA JARA ([phone])[facility])[address] [place] [address] RBC (Bld) [#/Vol] 2.91 10*6/uL Low 4.40-5.90 [facility] Comment on above: Performed By: #### L AB294 ####Loan Review Analyst: DOMENICA JARA ([id number])[facility])[address] [place] [address] WBC (Bld) [#/Vol] 8.0 10*3/uL Normal 3.6-10.7 [facility] Comment on above: Performed By: #### L AB294 ####Loan Review Analyst: DOMENICA JARA ([id number])[facility])[address] [place] [address] CBC panel Auto (Bld)on 03-21 Erythrocyte distribution width (RBC) [Ratio] 19.9 % High 11.5 - 15.0 % [facility] Hematocrit (Bld) [Volume fraction] 29.2 % Low 40.0 - 52.0 % [facility] Hemoglobin (Bld) [Mass/Vol] 8.8 g/dL Low 13.0 - 18.0 g/dL [facility] Interpretation and review of laboratory results Abnormal [facility] MCH (RBC) [Entitic mass] 30.2 pg 26. 0 - 34.[address] [facility] MCHC (RBC) [Mass/Vol] 30.1 % Low 30.5 - 36.0 % [facility] MCV (RBC) [Entitic vol] 100.3 fL High 77.0 - 99.[address] [facility] Platelet mean volume (Bld) [Entitic vol] 8.9 fL Low 9.0 - 12.[address] [facility] Platelets (Bld) [#/Vol] 271 10*3/uL 140 - 440 10*3/uL [facility] RBC (Bld) [#/Vol] 2.91 10*6/uL Low 4.40 - 5.9 0 10*6/uL [facility] WBC (Bld) [#/Vol] 8 10*3/uL 3.6 - 10.7 10*3/uL [facility] COMPREHENSIVE METABOLIC PANE Victor M 03-21-2025 Albumin [Mass/Vol] 2.0 g/dL Low 3.5-5.0 [facility] Comment on above: Performed By: #### L AB17, [id number] ####Loan Review Analyst: DOMENICA JARA ([id number])[facility] ([facility])[address] [place] [address] ALP [Catalytic activity/Vol] 217 U/L High 40-150 [facility] Comment on above: Performed By: #### L AB17, [id number] ####Loan Review Analyst: DOMENICA JARA ([id number])[facility] ([facility])[address] [place] [address] ALT [Catalytic activity/Vol] 13 U/L Normal <40 [facility] Comment on above: Performed By: #### L AB17, [id number] ####Loan Review Analyst: DOMENICA JARA ([id number])[facility] ([facility])[address] [place] [address] Anion gap [Moles/Vol] 8 mmol/L Normal 3-13 [facility] Comment on above: Performed By: #### L AB17, [id number] ####Loan Review Analyst: DOMENICA JARA ([id number])[facility])[address] [place] [address] AST [Catalytic activity/Vol] 59 U/L High <34 [facility] Comment on above: Performed By: #### L AB17, [id number] ####Loan Review Analyst: DOMENICA JARA ([id number])[facility] ([facility])[address] [place] [address] Bilirubin [Mass/Vol] 0.9 mg/dL Normal <1.2 [facility] Comment on above: Performed By: #### L AB17, [id number] ####Loan Review Analyst: DOMENICA JARA ([id number])[facility] ([facility])[address] [place] [address] Calcium [Mass/Vol] 9.0 mg/dL Normal 8.4-10.2 [facility] Comment on above: Performed By: #### L AB17, [id number] ####Loan Review Analyst: DOMENICA JARA ([id number])[facility] ([facility])[address] [place] [address] Chloride [Moles/Vol] 99 mmol/L Normal 98-107 [facility] Comment on above: Performed By: #### L AB17, [id number] ####Loan Review Analyst: DOMENICA JARA ([id number])[facility] ([facility])[address] [place] [address] CO2 [Moles/Vol] 27 mmol/L Normal 22-29 [facility] Comment on above: Performed By: #### L AB17, [id number] ####Loan Review Analyst: DOMENICA JARA ([id number])[facility] ([facility])[address] [place] [address] [place] Creatinine [Mass/Vol] 3.36 mg/dL High 0.72-1.25 [facility] Comment on above: Performed By: #### L AB17, [id number] ####Loan Review Analyst: DOMENICA JARA ([id number])[facility])[address] [place] [address] [place] GLOMERULAR FILTRATION RATE ML/MIN/1.73 SQ M.PREDICTED 20.2 mL/min/1.73m*2 Low >60.0 [facility] Comment on above: Result Comment: Calc ulation based on the Chronic Kidney Disease Epidemiology Collaboration (CKD-EPI) equation refit without adjustment for race Performed By: #### L AB17, [id number] ####Loan Review Analyst: DOMENICA JARA ([id number])[facility] ([facility])[address] [place] [address] Glucose [Mass/Vol] 91 mg/dL Normal 74-100 [facility] Comment on above: Performed By: #### L AB17, [id number] ####Loan Review Analyst: DOMENICA JARA ([id number])[facility])[address] [place] [address] Potassium [Moles/Vol] 5.0 mmol/L Normal 3.5-5.1 [facility] Comment on above: Result Comment: [facility] potassium values may be up to 0.5 mmol/L lower than serum values. Performed By: #### L AB17, [id number] ####Loan Review Analyst: DOMENICA JARA ([id number])[facility] ([facility])[address] [place] [address] Protein [Mass/Vol] 7.2 g/dL Normal 6.4-8.3 [facility] Comment on above: Performed By: #### L AB17, [id number] ####Loan Review Analyst: DOMENICA JARA ([id number])[facility])[address] [place] [address] Sodium [Moles/Vol] 134 mmol/L Low 136-145 [facility] Comment on above: Performed By: #### L AB17, [id number] ####Loan Review Analyst: DOMENICA JARA ([id number])[facility])[address] [place] [address] Urea nitrogen [Mass/Vol] 24 mg/dL High 9-23 [facility] Comment on above: Performed By: #### L AB17, [id number] ####Loan Review Analyst: DOMENICA JARA ([id number])[facility])[address] [place] [address] Comprehensive metabolic 1998 panelon 03-21-2025 Albumin [Mass/Vol] 2 g/dL Low 3.5 - 5.0 g/dL [facility] ALP [Catalytic activity/Vol] 217 U/L High 40 - 150 U/L [facility] ALT [Catalytic activity/Vol] 13 U/L NINF - 40 U/L [facility] Anion gap [Moles/Vol] 8 mmol/L 3 - 13 mmol/L [facility] AST [Catalytic activity/Vol] 59 U/L High NINF - 34 U/L [facility] Bilirubin [Mass/Vol] 0.9 mg/dL NINF - 1.2 mg/dL [facility] Calcium [Mass/Vol] 9 mg/dL 8.4 - 10. 2 mg/dL [facility] Chloride [Moles/Vol] 99 mmol/L 98 - 10 7 mmol/L [facility] CO2 [Moles/Vol] 27 mmol/L 22 - 29 mmol/L [facility] Creatinine [Mass/Vol] 3.36 mg/dL High 0.72 - 1.25 mg/dL [facility] GFR/1.73 sq M.predicted (S/P/Bld) [Vol rate/Area] 20.2 mL/min Low - PINF [facility] Comment on above: Calculation based on the Chronic Kidney Disease Epidemiology Collaboration (CKD-EPI) equation refit without adjustment for race Glucose [Mass/Vol] 91 mg/dL 74 - 100 mg/dL [facility] Interpretation and review of laboratory results Abnormal [facility] Potassium [Moles/Vol] 5 mmol/L 3.5 - 5.1 mmol/L [facility] Comment on above: Plasma potassium macey ues may be up to 0.5 mmol/L lower than serum values. Protein [Mass/Vol] 7.2 g/dL 6.4 - 8.3 g/dL [facility] Sodium [Moles/Vol] 134 mmol/L Low 136 - 145 mmol/L [facility] Urea nitrogen [Mass/Vol] 24 mg/dL High 9 - 23 mg/d L [facility] Laboratory - Chemistry and C hemistry - challengeon 03-21-2025 Glucose [Mass/Vol] 88 mg/dL 70 - 100 mg/dL [facility] Magnesium [Mass/Vol] 1.8 mg/dL 1.6 - 2 .6 mg/dL [facility] Laboratory - Coagulationon 0 03-21-2025 PT Coag (Bld) [Time] 29 s High 9.0 - 12.0 s [facility] MAGNESIUMon 03-21-2025 Magnesium [Mass/Vol] 1.8 mg/dL Normal 1.6-2.6 [facility] Comment on above: Result Comment: ARPAN Kaplan COMMENTS:Higher values can be expected in females during menses. Performed By: #### L AB17, [id number] ####Loan Review Analyst: DOMENICA JARA ([id number])[facility] ([facility])[address] [place] [address] Magnesium [Mass/Vol]on 03-21 Interpretation and review of laboratory results Normal [facility] Higher values can be expected in females during menses. [facility] No Panel Informationon 03-21 Interpretation and review of laboratory results Normal [facility] Performed by: [place] [address] CLIA ID: [id number] [facility] Interpretation and review of laboratory results Abnormal [facility] Nursing Noteon 03-21-2025 Nursing Note Educated pt on importance of prescribed medications. Pt still refused. Normal [facility] PROTHROMBIN TIMEon INR Coag (PPP) [Relative time] 2.9 {INR} High 0.9-1.1 [facility] Comment on above: Result Comment: Vaughn [...] Myocardial Infarction Performed By: #### L AB320, [id number] ####Loan Review Analyst: DOMENICA JARA ([id number])[facility] ([facility])[address] [place] [address] [place] PT Coag (PPP) [Time] 29.0 s High 9.0-12.0 [facility] Comment on above: Performed By: #### L AB320, [id number] ####Loan Review Analyst: DOMENICA JARA ([id number])[facility] ([address] PT Coag (Bld) [Time]on 03-21 INR Coag (PPP) [Relative time] 2.9 {INR} High 0.9 - 1.1 [facility] Comment on above: Recommended Anticoag ulant [...] Infarction Progress Noteon 03-21-2025 Progress Note Normal [facility] Progress Note Patient quit smoking in September. Accepting of handout with contact information for additional support to remain quit if neccesary. Normal [facility] Progress Note Normal [facility] Progress Note Normal [facility] Progress Note Normal [facility] aPTT Coag (Bld) [Time]on aPTT Coag (PPP) [Time] 50.7 s High 20.0 - 30.[address] [facility] NOTE: The therapeutic time for Heparin anticoagulation, based on Xa activity inhibition, is an APTT of 46-[address] [facility] 30on 03-20-2025 30 Normal [facility] [id number] 03-20-2025 [id number] Normal [facility] 36on 03-20-2025 36 Patient was re-admitted on 03/13. Inpatient consult team is following his care. Normal [facility] APTTon 03-20-2025 aPTT Coag (Bld) [Time] 68.9 s High 20.0-30.5 [facility] Comment on above: Result Comment: ARPAN Kaplan COMMENTS:NOTE: The therapeutic time for Heparin anticoagulation, based on Xa activity inhibition, is an APTT of 46-80 seconds. Performed By: #### L AB325 ####Loan Review Analyst: DOMENICA JARA ([id number])[facility])[address] [place] [address] aPTT Coag (Bld) [Time] 61.5 s High 20.0-30.5 [facility] Comment on above: Result Comment: ARPAN Kaplan COMMENTS:NOTE: The therapeutic time for Heparin anticoagulation, based on Xa activity inhibition, is an APTT of 46-80 seconds. Performed By: #### L AB325 ####Loan Review Analyst: DOMENICA JARA ([id number])[facility])[address] [place] [address] aPTT Coag (Bld) [Time] 44.1 s High 20.0-30.5 [facility] Comment on above: Result Comment: ARPAN Kaplan COMMENTS:NOTE: The therapeutic time for Heparin anticoagulation, based on Xa activity inhibition, is an APTT of 46-80 seconds. Performed By: #### L AB320, [id number] ####Loan Review Analyst: DOMENICA JARA ([id number])[facility])[address] [place] [address] CBC (HEMOGRAM)on 03-20-2025 Erythrocyte distribution width (RBC) [Ratio] 20.2 % High 11.5-15.0 [facility] Comment on above: Performed By: #### L AB294 ####Loan Review Analyst: DOMENICA JARA ([id number])[address] Hematocrit (Bld) [Volume fraction] 30.3 % Low 40.0-52.0 [facility] Comment on above: Performed By: #### L AB294 ####Loan Review Analyst: DOMENICA JARA ([id number])[facility])[address] [place] [address] Hemoglobin (Bld) [Mass/Vol] 9.2 g/dL Low 13.0-18.0 [facility] Comment on above: Performed By: #### L AB294 ####Loan Review Analyst: DOMENICA JARA ([id number])[facility] ([facility])[address] [place] [address] MCH (RBC) [Entitic mass] 30.7 pg Normal 26.0-34.0 [facility] Comment on above: Performed By: #### L AB294 ####Loan Review Analyst: DOMENICA JARA ([id number])[facility] ([facility])[address] [place] [address] MCHC 30.4 % Low 30.5-36.0 [facility] Comment on above: Performed By: #### L AB294 ####Loan Review Analyst: DOMENICA JARA ([id number])[facility])[address] [place] [address] MCV (RBC) [Entitic vol] 101.0 fL High 77.0-99.0 [facility] Comment on above: Performed By: #### L AB294 ####Loan Review Analyst: DOMENICA JARA ([id number])[facility] ([facility])[address] [place] [address] Platelet mean volume (Bld) [Entitic vol] 9.2 fL Normal 9.0-12.7 [facility] Comment on above: Performed By: #### L AB294 ####Loan Review Analyst: DOMENICA JARA ([id number])[facility] ([facility])[address] [place] [address] Platelets (Bld) [#/Vol] 308 10*3/uL Normal 140-440 [facility] Comment on above: Performed By: #### L AB294 ####Loan Review Analyst: DOMENICA JARA ([id number])[facility] ([facility])[address] [place] [address] RBC (Bld) [#/Vol] 3.00 10*6/uL Low 4.40-5.90 [facility] Comment on above: Performed By: #### L AB294 ####Loan Review Analyst: DOMENICA JARA ([id number])[facility] ([facility])[address] [place] [address] WBC (Bld) [#/Vol] 8.1 10*3/uL Normal 3.6-10.7 [facility] Comment on above: Performed By: #### L AB294 ####Loan Review Analyst: DOMENICA JARA ([id number])[facility] ([facility])[address] [place] [address] CBC panel Auto (Bld)Ordered By: Anu Graham on 03-20-2025 Erythrocyte distribution width (RBC) [Ratio] 20.2 % High 11.5 - 15.0 % [facility] Hematocrit (Bld) [Volume fraction] 30.3 % Low 40.0 - 52.0 % [facility] Hemoglobin (Bld) [Mass/Vol] 9.2 g/dL Low 13.0 - 18.0 g/dL [facility] Interpretation and review of laboratory results Abnormal [facility] MCH (RBC) [Entitic mass] 30.7 pg 26. 0 - 34.[address] [facility] MCHC (RBC) [Mass/Vol] 30.4 % Low 30.5 - 36.0 % [facility] MCV (RBC) [Entitic vol] 101 fL High 77.0 - 99.[address] [facility] Platelet mean volume (Bld) [Entitic vol] 9.2 fL 9.0 - 12.[address] [facility] Platelets (Bld) [#/Vol] 308 10*3/uL 140 - 440 10*3/uL [facility] RBC (Bld) [#/Vol] 3 10*6/uL Low 4.40 - 5.9 0 10*6/uL [facility] WBC (Bld) [#/Vol] 8.1 10*3/uL 3.6 - 10.7 10*3/uL [facility] COMPREHENSIVE METABOLIC PANE Victor M 03-20-2025 Albumin [Mass/Vol] 1.9 g/dL Low 3.5-5.0 [facility] Comment on above: Performed By: #### L AB103, LAB17 ####Loan Review Analyst: DOMENICA JARA ([id number])[facility] ([facility])[address] [place] [address] ALP [Catalytic activity/Vol] 194 U/L High 40-150 [facility] Comment on above: Performed By: #### L AB103, LAB17 ####Loan Review Analyst: DOMENICA JARA ([id number])[facility])[address] [place] [address] ALT [Catalytic activity/Vol] 13 U/L Normal <40 [facility] Comment on above: Performed By: #### L AB103, LAB17 ####Loan Review Analyst: DOMENICA JARA ([id number])[facility])[address] [place] [address] Anion gap [Moles/Vol] 10 mmol/L Normal 3-13 [facility] Comment on above: Performed By: #### L AB103, LAB17 ####Loan Review Analyst: DOMENICA JARA ([id number])[facility])[address] [place] [address] AST [Catalytic activity/Vol] 46 U/L High <34 [facility] Comment on above: Performed By: #### L AB103, LAB17 ####Loan Review Analyst: DOMENICA JARA ([id number])[facility])[address] [place] [address] Bilirubin [Mass/Vol] 0.8 mg/dL Normal <1.2 [facility] Comment on above: Performed By: #### L AB103, LAB17 ####Loan Review Analyst: DOMENICA JARA ([id number])[facility])[address] [place] [address] Calcium [Mass/Vol] 9.1 mg/dL Normal 8.4-10.2 [facility] Comment on above: Performed By: #### L AB103, LAB17 ####Loan Review Analyst: DOMENICA JARA ([id number])[facility])[address] [place] [address] Chloride [Moles/Vol] 102 mmol/L Normal 98-107 [facility] Comment on above: Performed By: #### L AB103, LAB17 ####Loan Review Analyst: DOMENICA JARA ([id number])[facility] ([facility])[address] [place] [address] CO2 [Moles/Vol] 24 mmol/L Normal 22-29 [facility] Comment on above: Performed By: #### L AB103, LAB17 ####Loan Review Analyst: DOMENICA JARA ([id number])[facility])[address] [place] [address] Creatinine [Mass/Vol] 4.28 mg/dL High 0.72-1.25 [facility] Comment on above: Performed By: #### L AB103, LAB17 ####Loan Review Analyst: DOMENICA JARA ([id number])[facility])[address] [place] [address] GLOMERULAR FILTRATION RATE ML/MIN/1.73 SQ M.PREDICTED 15.1 mL/min/1.73m*2 Low >60.0 [facility] Comment on above: Result Comment: Calc ulation based on the Chronic Kidney Disease Epidemiology Collaboration (CKD-EPI) equation refit without adjustment for race Performed By: #### L AB103, LAB17 ####Loan Review Analyst: DOMENICA JARA ([id number])[facility])[address] [place] [address] Glucose [Mass/Vol] 91 mg/dL Normal 74-100 [facility] Comment on above: Performed By: #### L AB103, LAB17 ####Loan Review Analyst: DOMENICA JARA ([id number])[facility])[address] [place] [address] [place] Potassium [Moles/Vol] 5.3 mmol/L High 3.5-5.1 [facility] Comment on above: Result Comment: [facility] potassium values may be up to 0.5 mmol/L lower than serum values. Performed By: #### L AB103, LAB17 ####Loan Review Analyst: DOMENICA JARA ([id number])[facility])[address] [place] [address] Protein [Mass/Vol] 7.3 g/dL Normal 6.4-8.3 [facility] Comment on above: Performed By: #### L AB103, LAB17 ####Loan Review Analyst: DOMENICA JARA ([id number])[address] Sodium [Moles/Vol] 136 mmol/L Normal 136-145 [facility] Comment on above: Performed By: #### L AB103, LAB17 ####Loan Review Analyst: DOMENICA JARA ([id number])[address] Urea nitrogen [Mass/Vol] 32 mg/dL High 9-23 [facility] Comment on above: Performed By: #### L 103, LAB17 ####Loan Review Analyst: DOMENICA JARA ([id number])[facility])[address] [place] [address] Comprehensive metabolic 1998 panelon 03-20-2025 Albumin [Mass/Vol] 1.9 g/dL Low 3.5 - 5.0 g/dL [facility] ALP [Catalytic activity/Vol] 194 U/L High 40 - 150 U/L [facility] ALT [Catalytic activity/Vol] 13 U/L NINF - 40 U/L [facility] Anion gap [Moles/Vol] 10 mmol/L 3 - 13 mmol/L [facility] AST [Catalytic activity/Vol] 46 U/L [facility]L [facility] Bilirubin [Mass/Vol] 0.8 mg/dL NINF - 1.2 mg/dL [facility] Calcium [Mass/Vol] 9.1 mg/dL 8.4 - 10. 2 mg/dL [facility] Chloride [Moles/Vol] 102 mmol/L 98 - 10 7 mmol/L [facility] CO2 [Moles/Vol] 24 mmol/L 22 - 29 mmol/L [facility] Creatinine [Mass/Vol] 4.28 mg/dL High 0.72 - 1.25 mg/dL [facility] GFR/1.73 sq M.predicted (S/P/Bld) [Vol rate/Area] 15.1 mL/min Low - PINF [facility] Comment on above: Calculation based on the Chronic Kidney Disease Epidemiology Collaboration (CKD-EPI) equation refit without adjustment for race Glucose [Mass/Vol] 91 mg/dL 74 - 100 mg/dL [facility] Interpretation and review of laboratory results Abnormal [facility] Potassium [Moles/Vol] 5.3 mmol/L High 3.5 - 5.1 mmol/L [facility] Comment on above: Plasma potassium macey ues may be up to 0.5 mmol/L lower than serum values. Protein [Mass/Vol] 7.3 g/dL 6.4 - 8.3 g/dL [facility] Sodium [Moles/Vol] 136 mmol/L 136 - 145 mmol/L [facility] Urea nitrogen [Mass/Vol] 32 mg/dL High 9 - 23 mg/d L [facility] HBV surface Ab IA Qnon 03-20 Interpretation: <8.0 Non-Reactive 8.0-11.9 Equivocal >= 12.0 Ab Detected Note: If an equivocal result is interpreted, an antibody status is unable to be determined. Collect new specimen if clinically indicated. [facility] HBV surface Ag IA Qlon 03-20 Interpretation and review of laboratory results Normal [facility] HEPATITIS B SURFACE ANTIBODY on 03-20-2025 HEPATITIS B VIRUS SURFACE AB <8.0 Normal [facility] Comment on above: Result Comment: ARPAN Kaplan COMMENTS:Interpretation:<8.0 Non-Reactive8.0-11.9 Equivocal>= 12.0 Ab DetectedNote: If an equivocal result is interpreted, an antibody status is unable to be determined. Collect new specimen if clinically indicated. Performed By: #### Tameka ISAAC472, [id number] ####Loan Review Analyst: DOMENICA JARA ([id number])[address] HEPATITIS B SURFACE ANTIGENo n 03-20-2025 HEPATITIS B VIRUS SURFACE AG Not detected Normal Not Detected [facility] Comment on above: Performed By: #### Tameka ISAAC472, [id number] ####Loan Review Analyst: DOMENICA JARA ([id number])[facility])[address] [place] [address] Laboratory - Chemistry and C hemistry - challengeon 03-20-2025 Magnesium [Mass/Vol] 2 mg/dL 1.6 - 2 .6 mg/dL [facility] Laboratory - Coagulationon 0 03-20-2025 PT Coag (Bld) [Time] 19.1 s High 9.0 - 12.0 s [facility] Laboratory - Microbiology an d Antimicrobial susceptibilityon 03-20-2025 HBV surface Ag IA Ql Not detected Not Detected [facility] HBV surface Ab IA Qn mIU/mL [facility] MAGNESIUMon 03-20-2025 Magnesium [Mass/Vol] 2.0 mg/dL Normal 1.6-2.6 [facility] Comment on above: Result Comment: ORDE R COMMENTS:Higher values can be expected in females during menses. Performed By: #### L AB103, LAB17 ####Loan Review Analyst: DOMENICA JARA ([id number])[facility])[address] [place] [address] Magnesium [Mass/Vol]on 03-20 Interpretation and review of laboratory results Normal [facility] Higher values can be expected in females during menses. [facility] No Panel Informationon 03-20 [facility] Interpretation and review of laboratory results Abnormal [facility] Nursing Noteon 03-20-2025 Nursing Note Normal [facility] PROTHROMBIN TIMEon INR Coag (PPP) [Relative time] 1.9 {INR} High 0.9-1.1 [facility] Comment on above: Result Comment: Vaughn [...] Myocardial Infarction Performed By: #### L AB320, [id number] ####Loan Review Analyst: DOMENICA JARA ([id number])[facility] ([facility])[address] [place] [address] PT Coag (PPP) [Time] 19.1 s High 9.0-12.0 [facility] Comment on above: Performed By: #### L AB320, [id number] ####Loan Review Analyst: DOMENICA JARA ([phone])[facility] ([address] PT Coag (Bld) [Time]on 03-20 INR Coag (PPP) [Relative time] 1.9 {INR} High 0.9 - 1.1 [facility] Comment on above: Recommended Anticoag ulant [...] Infarction Progress Noteon 03-20-2025 Progress Note Normal [facility] Progress Note Normal [facility] Progress Note Normal [facility] aPTT Coag (Bld) [Time]on aPTT Coag (PPP) [Time] 68.9 s High 20.0 - 30.[address] [facility] Interpretation and review of laboratory results Abnormal [facility] NOTE: The therapeutic time for Heparin anticoagulation, based on Xa activity inhibition, is an APTT of 46-80 seconds. [facility] aPTT Coag (PPP) [Time] 61.5 s High 20.0 - 30.[address] [facility] Interpretation and review of laboratory results Abnormal [facility] NOTE: The therapeutic time for Heparin anticoagulation, based on Xa activity inhibition, is an APTT of 46-80 seconds. [facility] aPTT Coag (PPP) [Time] 44.1 s High 20.0 - 30.[address] [facility] NOTE: The therapeutic time for Heparin anticoagulation, based on Xa activity inhibition, is an APTT of 46-[address] [facility] 30on 03-19-2025 30 Normal [facility] 30 Normal [facility] [id number] 03-19-2025 [id number] Normal [facility] APTTon 03-19-2025 aPTT Coag (Bld) [Time] 47.3 s High 20.0-30.5 [facility] Comment on above: Result Comment: ARPAN Kaplan COMMENTS:NOTE: The therapeutic time for Heparin anticoagulation, based on Xa activity inhibition, is an APTT of 46-80 seconds. Performed By: #### L AB325 ####Loan Review Analyst: DOMENICA JARA ([phone])[facility] ([facility])[address] [place] [address] aPTT Coag (Bld) [Time] 46.4 s High 20.0-30.5 [facility] Comment on above: Result Comment: ARPAN Kaplan COMMENTS:NOTE: The therapeutic time for Heparin anticoagulation, based on Xa activity inhibition, is an APTT of 46-80 seconds. Performed By: #### L AB320, [id number] ####Loan Review Analyst: DOMENICA JARA ([phone])[facility])[address] [place] [address] CBC (HEMOGRAM)on 03-19-2025 Erythrocyte distribution width (RBC) [Ratio] 20.8 % High 11.5-15.0 [facility] Comment on above: Performed By: #### L AB294 ####Loan Review Analyst: DOMENICA JARA ([id number])[facility])[address] [place] [address] Hematocrit (Bld) [Volume fraction] 30.4 % Low 40.0-52.0 [facility] Comment on above: Performed By: #### L AB294 ####Loan Review Analyst: DOMENICA JARA ([id number])[facility])[address] [place] [address] Hemoglobin (Bld) [Mass/Vol] 8.9 g/dL Low 13.0-18.0 [facility] Comment on above: Performed By: #### L AB294 ####Loan Review Analyst: DOMENICA JARA ([id number])[facility] ([facility])[address] [place] [address] MCH (RBC) [Entitic mass] 29.9 pg Normal 26.0-34.0 [facility] Comment on above: Performed By: #### L AB294 ####Loan Review Analyst: DOMENICA JARA ([id number])[facility])[address] [place] [address] MCHC 29.3 % Low 30.5-36.0 [facility] Comment on above: Performed By: #### L AB294 ####Loan Review Analyst: DOMENICA JARA ([id number])[facility])[address] [place] [address] MCV (RBC) [Entitic vol] 102.0 fL High 77.0-99.0 [facility] Comment on above: Performed By: #### L AB294 ####Loan Review Analyst: DOMENICA JARA ([id number])[facility])[address] [place] [address] Platelet mean volume (Bld) [Entitic vol] 9.3 fL Normal 9.0-12.7 [facility] Comment on above: Performed By: #### L AB294 ####Loan Review Analyst: DOMENICA JARA ([id number])[facility])[address] [place] [address] Platelets (Bld) [#/Vol] 320 10*3/uL Normal 140-440 [facility] Comment on above: Performed By: #### L AB294 ####Loan Review Analyst: DOMENICA JARA ([phone])[facility])[address] [place] [address] RBC (Bld) [#/Vol] 2.98 10*6/uL Low 4.40-5.90 [facility] Comment on above: Performed By: #### L AB294 ####Loan Review Analyst: DOMENICA JARA ([id number])[facility])[address] [place] [address] WBC (Bld) [#/Vol] 7.8 10*3/uL Normal 3.6-10.7 [facility] Comment on above: Performed By: #### L AB294 ####Loan Review Analyst: DOMENICA JARA ([id number])[facility] ([facility])[address] [place] [address] CBC panel Auto (Bld)Ordered By: Liseth Granado on 03-19-2025 Erythrocyte distribution width (RBC) [Ratio] 20.8 % High 11.5 - 15.0 % [facility] Hematocrit (Bld) [Volume fraction] 30.4 % Low 40.0 - 52.0 % [facility] Hemoglobin (Bld) [Mass/Vol] 8.9 g/dL Low 13.0 - 18.0 g/dL [facility] Interpretation and review of laboratory results Abnormal [facility] MCH (RBC) [Entitic mass] 29.9 pg 26. 0 - 34.[address] [facility] MCHC (RBC) [Mass/Vol] 29.3 % Low 30.5 - 36.0 % [facility] MCV (RBC) [Entitic vol] 102 fL High 77.0 - 99.[address] [facility] Platelet mean volume (Bld) [Entitic vol] 9.3 fL 9.0 - 12.[address] [facility] Platelets (Bld) [#/Vol] 320 10*3/uL 140 - 440 10*3/uL [facility] RBC (Bld) [#/Vol] 2.98 10*6/uL Low 4.40 - 5.9 0 10*6/uL [facility] WBC (Bld) [#/Vol] 7.8 10*3/uL 3.6 - 10.7 10*3/uL [facility] COMPREHENSIVE METABOLIC PANE Victor M 03-19-2025 Albumin [Mass/Vol] 2.0 g/dL Low 3.5-5.0 [facility] Comment on above: Performed By: #### L AB17, [id number] ####Loan Review Analyst: DOMENICA JARA ([id number])[facility] ([facility])[address] [place] [address] ALP [Catalytic activity/Vol] 221 U/L High 40-150 [facility] [employer] Comment on above: Performed By: #### L AB17, [id number] ####Loan Review Analyst: DOMENICA JARA ([id number])[facility] ([facility])[address] [place] [address] [place] ALT [Catalytic activity/Vol] 14 U/L Normal <40 [facility] Comment on above: Performed By: #### L AB17, [id number] ####Loan Review Analyst: DOMENICA JARA ([id number])[facility] ([facility])[address] [place] [address] Anion gap [Moles/Vol] 8 mmol/L Normal 3-13 [facility] Comment on above: Performed By: #### L AB17, [id number] ####Loan Review Analyst: DOMENICA JARA ([id number])[facility] ([facility])[address] [place] [address] AST [Catalytic activity/Vol] 52 U/L High <34 [facility] Comment on above: Performed By: #### L AB17, [id number] ####Loan Review Analyst: DOMENICA JARA ([id number])[facility] ([facility])[address] [place] [address] Bilirubin [Mass/Vol] 0.9 mg/dL Normal <1.2 [facility] Comment on above: Performed By: #### L AB17, [id number] ####Loan Review Analyst: DOMENICA JARA ([id number])[facility])[address] [place] [address] Calcium [Mass/Vol] 9.0 mg/dL Normal 8.4-10.2 [facility] Comment on above: Performed By: #### L AB17, [id number] ####Loan Review Analyst: DOMENICA JARA ([id number])[facility])[address] [place] [address] [place] Chloride [Moles/Vol] 102 mmol/L Normal 98-107 [facility] Comment on above: Performed By: #### L AB17, [id number] ####Loan Review Analyst: DOMENICA JARA ([id number])[facility])[address] [place] [address] [place] CO2 [Moles/Vol] 27 mmol/L Normal 22-29 [facility] Comment on above: Performed By: #### L AB17, [id number] ####Loan Review Analyst: DOMENICA JARA ([id number])[facility])[address] [place] [address] Creatinine [Mass/Vol] 3.67 mg/dL High 0.72-1.25 [facility] Comment on above: Performed By: #### L AB17, [id number] ####Loan Review Analyst: DOMENICA JARA ([id number])[facility])[address] [place] [address] GLOMERULAR FILTRATION RATE ML/MIN/1.73 SQ M.PREDICTED 18.2 mL/min/1.73m*2 Low >60.0 [facility] Comment on above: Result Comment: Calc ulation based on the Chronic Kidney Disease Epidemiology Collaboration (CKD-EPI) equation refit without adjustment for race Performed By: #### L AB17, [id number] ####Loan Review Analyst: DOMENICA JARA ([id number])[facility])[address] [place] [address] Glucose [Mass/Vol] 85 mg/dL Normal 74-100 [facility] Comment on above: Performed By: #### L AB17, [id number] ####Loan Review Analyst: DOMENICA JARA ([id number])[address] Potassium [Moles/Vol] 4.0 mmol/L Normal 3.5-5.1 [facility] Comment on above: Result Comment: [facility] potassium values may be up to 0.5 mmol/L lower than serum values. Performed By: #### L AB17, [id number] ####Loan Review Analyst: DOMENICA JARA ([id number])[facility])[address] [place] [address] Protein [Mass/Vol] 7.4 g/dL Normal 6.4-8.3 [facility] Comment on above: Performed By: #### L AB17, [id number] ####Loan Review Analyst: DOMENICA JARA ([id number])[facility])[address] [place] [address] [place] Sodium [Moles/Vol] 137 mmol/L Normal 136-145 [facility] Comment on above: Performed By: #### L AB17, [id number] ####Loan Review Analyst: DOMENICA JARA ([id number])[facility] ([facility])[address] [place] [address] Urea nitrogen [Mass/Vol] 24 mg/dL High - [facility] Comment on above: Performed By: #### L AB17, [id number] ####Loan Review Analyst: DOMENICA JARA ([id number])[facility] [place] [address] Comprehensive metabolic 1998 panelOrdered By: Rikki Caballero on 03-19-2025 Albumin [Mass/Vol] 2 g/dL Low 3.5 - 5.0 g/dL [facility] ALP [Catalytic activity/Vol] 221 U/L High 40 - 150 U/L [facility] ALT [Catalytic activity/Vol] 14 U/L NINF - 40 U/L [facility] Anion gap [Moles/Vol] 8 mmol/L 3 - 13 mmol/L [facility] AST [Catalytic activity/Vol] 52 U/L High NINF - 34 U/L [facility] Bilirubin [Mass/Vol] 0.9 mg/dL NINF - 1.2 mg/dL [facility] Calcium [Mass/Vol] 9 mg/dL 8.4 - 10. 2 mg/dL [facility] Chloride [Moles/Vol] 102 mmol/L 98 - 10 7 mmol/L [facility] CO2 [Moles/Vol] 27 mmol/L 22 - 29 mmol/L [facility] Creatinine [Mass/Vol] 3.67 mg/dL High 0.72 - 1.25 mg/dL [facility] GFR/1.73 sq M.predicted (S/P/Bld) [Vol rate/Area] 18.2 mL/min Low - PINF [facility] Comment on above: Calculation based on the Chronic Kidney Disease Epidemiology Collaboration (CKD-EPI) equation refit without adjustment for race Glucose [Mass/Vol] 85 mg/dL 74 - 100 mg/dL [facility] Interpretation and review of laboratory results Abnormal [facility] Potassium [Moles/Vol] 4 mmol/L 3.5 - 5.1 mmol/L [facility] Comment on above: Plasma potassium macey ues may be up to 0.5 mmol/L lower than serum values. Protein [Mass/Vol] 7.4 g/dL 6.4 - 8.3 g/dL [facility] Sodium [Moles/Vol] 137 mmol/L 136 - 145 mmol/L [facility] Urea nitrogen [Mass/Vol] 24 mg/dL High 9 - 23 mg/d L [facility] Laboratory - Chemistry and C hemistry - challengeon 03-19-2025 Magnesium [Mass/Vol] 1.9 mg/dL 1.6 - 2 .6 mg/dL [facility] Laboratory - Coagulationon 0 03-19-2025 PT Coag (Bld) [Time] 17 s High 9.0 - 12.0 s [facility] MAGNESIUMon 03-19-2025 Magnesium [Mass/Vol] 1.9 mg/dL Normal 1.6-2.6 [facility] Comment on above: Result Comment: ARPAN Kaplan COMMENTS:Higher values can be expected in females during menses. Performed By: #### L AB17, [id number] ####Loan Review Analyst: DOMENICA JARA ([id number])[address] Magnesium [Mass/Vol]on 03-19 Interpretation and review of laboratory results Normal [facility] Higher values can be expected in females during menses. [facility] No Panel Informationon 03-19 Interpretation and review of laboratory results Abnormal [facility] Nursing Noteon 03-19-2025 Nursing Note Wound vac suction failing-pt requesting wound vac removed for now. Black foam dressing removed and wound packed with saline-soaked gauze covered with DSD Normal [facility] Nursing Note Pt adamantly refusing telemetry at this time, ripped off monitor and threw to the floor Normal [facility] PROTHROMBIN TIMEon INR Coag (PPP) [Relative time] 1.6 {INR} High 0.9-1.1 [facility] Comment on above: Performed By: #### L AB320, [id number] ####Loan Review Analyst: DOMENICA JARA ([id number])[facility] ([facility])[address] [place] [address] [place] PT Coag (PPP) [Time] 17.0 s High 9.0-12.0 [facility] Comment on above: Performed By: #### L AB320, [id number] ####Loan Review Analyst: DOMENICA JARA ([id number])[facility] ([facility] [place] [address] [place] PT Coag (Bld) [Time]on 03-19 INR Coag (PPP) [Relative time] 1.6 {INR} High 0.9 - 1.1 [facility] Progress Noteon 03-19-2025 [address] [facility] Progress Note Normal [facility] Progress Note Normal [facility] Progress Note Normal [facility] aPTT Coag (Bld) [Time]on aPTT Coag (PPP) [Time] 47.3 s High 20.0 - 30.[address] [facility] Interpretation and review of laboratory results Abnormal [facility] NOTE: The therapeutic time for Heparin anticoagulation, based on Xa activity inhibition, is an APTT of 46-80 seconds. [facility] aPTT Coag (PPP) [Time] 46.4 s High 20.0 - 30.[address] [facility] NOTE: The therapeutic time for Heparin anticoagulation, based on Xa activity inhibition, is an APTT of 46-[address] [facility] APTTon 03-18-2025 aPTT Coag (Bld) [Time] 51.8 s High 20.0-30.5 [facility] Comment on above: Result Comment: ARPAN Kaplan COMMENTS:NOTE: The therapeutic time for Heparin anticoagulation, based on Xa activity inhibition, is an APTT of 46-80 seconds. Performed By: #### L AB325 ####Loan Review Analyst: DOMENICA JARA ([id number])[facility] ([facility])[address] [place] [address] [place] aPTT Coag (Bld) [Time] 47.6 s High 20.0-30.5 [facility] Comment on above: Result Comment: ARPAN Kaplan COMMENTS:NOTE: The therapeutic time for Heparin anticoagulation, based on Xa activity inhibition, is an APTT of 46-80 seconds. Performed By: #### L AB325 ####Loan Review Analyst: DOMENICA JARA ([id number])[facility])[address] [place] [address] aPTT Coag (Bld) [Time] 48.8 s High 20.0-30.5 [facility] Comment on above: Result Comment: ARPAN Kaplan COMMENTS:NOTE: The therapeutic time for Heparin anticoagulation, based on Xa activity inhibition, is an APTT of 46-80 seconds. Performed By: #### L AB325, [id number] ####Loan Review Analyst: DOMENICA JARA ([id number])[facility])[address] [place] [address] CBC (HEMOGRAM)on 03-18-2025 Erythrocyte distribution width (RBC) [Ratio] 20.6 % High 11.5-15.0 [facility] Comment on above: Performed By: #### L AB294 ####Loan Review Analyst: DOMENICA JARA ([id number])[facility])[address] [place] [address] Hematocrit (Bld) [Volume fraction] 30.4 % Low 40.0-52.0 [facility] Comment on above: Performed By: #### L AB294 ####Loan Review Analyst: DOMENICA JARA ([id number])[address] Hemoglobin (Bld) [Mass/Vol] 9.1 g/dL Low 13.0-18.0 [facility] Comment on above: Performed By: #### L AB294 ####Loan Review Analyst: DOMENICA [id number])[address] MCH (RBC) [Entitic mass] 30.0 pg Normal 26.0-34.0 [facility] Comment on above: Performed By: #### L AB294 ####Loan Review Analyst: DOMENICA [id number])[facility] ([facility])[address] [place] [address] MCHC 29.9 % Low 30.5-36.0 [facility] Comment on above: Performed By: #### L AB294 ####Loan Review Analyst: DOMENICA JARA ([id number])[facility] ([facility])[address] [place] [address] MCV (RBC) [Entitic vol] 100.3 fL High 77.0-99.0 [facility] Comment on above: Performed By: #### L AB294 ####Loan Review Analyst: DOMENICA JARA ([id number])[facility] ([facility])[address] [place] [address] Platelet mean volume (Bld) [Entitic vol] 9.4 fL Normal 9.0-12.7 [facility] Comment on above: Performed By: #### L AB294 ####Loan Review Analyst: DOMENICA JARA ([id number])[facility] ([facility])[address] [place] [address] Platelets (Bld) [#/Vol] 333 10*3/uL Normal 140-440 [facility] Comment on above: Performed By: #### L AB294 ####Loan Review Analyst: DOMENICA JARA ([id number])[facility] ([facility])[address] [place] [address] RBC (Bld) [#/Vol] 3.03 10*6/uL Low 4.40-5.90 [facility] Comment on above: Performed By: #### L AB294 ####Loan Review Analyst: DOMENICA JARA ([id number])[facility] ([facility])[address] [place] [address] WBC (Bld) [#/Vol] 7.6 10*3/uL Normal 3.6-10.7 [facility] Comment on above: Performed By: #### L AB294 ####Loan Review Analyst: DOMENICA JARA ([id number])[facility] ([facility])[address] [place] [address] CBC panel Auto (Bld)Ordered By: Haley Vitale on 03-18-2025 Erythrocyte distribution width (RBC) [Ratio] 20.6 % High 11.5 - 15.0 % [facility] Hematocrit (Bld) [Volume fraction] 30.4 % Low 40.0 - 52.0 % [facility] Hemoglobin (Bld) [Mass/Vol] 9.1 g/dL Low 13.0 - 18.0 g/dL [facility] Interpretation and review of laboratory results Abnormal [facility] MCH (RBC) [Entitic mass] 30 pg 26. 0 - 34.[address] [facility] MCHC (RBC) [Mass/Vol] 29.9 % Low 30.5 - 36.0 % [facility] MCV (RBC) [Entitic vol] 100.3 fL High 77.0 - 99.[address] [facility] Platelet mean volume (Bld) [Entitic vol] 9.4 fL 9.0 - 12.[address] [facility] Platelets (Bld) [#/Vol] 333 10*3/uL 140 - 440 10*3/uL [facility] RBC (Bld) [#/Vol] 3.03 10*6/uL Low 4.40 - 5.9 0 10*6/uL [facility] WBC (Bld) [#/Vol] 7.6 10*3/uL 3.6 - 10.7 10*3/uL [facility] COMPREHENSIVE METABOLIC PANE Victor M 03-18-2025 Albumin [Mass/Vol] 2.0 g/dL Low 3.5-5.0 [facility] Comment on above: Performed By: #### L AB103, LAB17 ####Loan Review Analyst: DOMENICA JARA ([id number])[facility] ([facility])[address] [place] [address] ALP [Catalytic activity/Vol] 241 U/L High 40-150 [facility] Comment on above: Performed By: #### L AB103, LAB17 ####Loan Review Analyst: DOMENICA JARA ([id number])[facility] ([facility])[address] [place] [address] ALT [Catalytic activity/Vol] 11 U/L Normal <40 [facility] Comment on above: Performed By: #### L AB103, LAB17 ####Loan Review Analyst: DOMENICA JARA ([id number])[facility] ([facility])[address] [place] [address] Anion gap [Moles/Vol] 10 mmol/L Normal 3-13 [facility] Comment on above: Performed By: #### L AB103, LAB17 ####Loan Review Analyst: DOMENICA JARA ([id number])[facility] ([facility])[address] [place] [address] AST [Catalytic activity/Vol] 50 U/L High <34 [facility] Comment on above: Performed By: #### L AB103, LAB17 ####Loan Review Analyst: DOMENICA JARA ([id number])[facility] ([facility])[address] [place] [address] Bilirubin [Mass/Vol] 0.8 mg/dL Normal <1.2 [facility] Comment on above: Performed By: #### L AB103, LAB17 ####Loan Review Analyst: DOMENICA JARA ([id number])[facility] ([facility])[address] [place] [address] Calcium [Mass/Vol] 9.0 mg/dL Normal 8.4-10.2 [facility] Comment on above: Performed By: #### L AB103, LAB17 ####Loan Review Analyst: DOMENICA JARA ([phone])[facility] ([facility])[address] [place] [address] [place] Chloride [Moles/Vol] 100 mmol/L Normal 98-107 [facility] Comment on above: Performed By: #### L AB103, LAB17 ####Loan Review Analyst: DOMENICA JARA ([id number])[facility] ([facility])[address] [place] [address] [place] CO2 [Moles/Vol] 29 mmol/L Normal 22-29 [facility] Comment on above: Performed By: #### L AB103, LAB17 ####Loan Review Analyst: DOMENICA JARA ([id number])[facility])[address] [place] [address] Creatinine [Mass/Vol] 2.64 mg/dL High 0.72-1.25 [facility] Comment on above: Performed By: #### Tameka KWONG, LAB17 ####Loan Review Analyst: DOMENICA JARA ([phone])[facility])[address] [place] [address] GLOMERULAR FILTRATION RATE ML/MIN/1.73 SQ M.PREDICTED 27.0 mL/min/1.73m*2 Low >60.0 [facility] Comment on above: Result Comment: Calc ulation based on the Chronic Kidney Disease Epidemiology Collaboration (CKD-EPI) equation refit without adjustment for race Performed By: #### Tameka KWONG, LAB17 ####Loan Review Analyst: DOMENICA JARA ([phone])[facility])[address] [place] [address] Glucose [Mass/Vol] 73 mg/dL Low 74-100 [facility] Comment on above: Performed By: #### Tameka KWONG, LAB17 ####Loan Review Analyst: DOMENICA JARA ([id number])[address] Potassium [Moles/Vol] 3.4 mmol/L Low 3.5-5.1 [facility] Comment on above: Result Comment: [facility] potassium values may be up to 0.5 mmol/L lower than serum values. Performed By: #### Tameka KWONG, LAB17 ####Loan Review Analyst: DOMENICA JARA ([id number])[facility])[address] [place] [address] Protein [Mass/Vol] 7.3 g/dL Normal 6.4-8.3 [facility] Comment on above: Performed By: #### Tameka KWONG, LAB17 ####Loan Review Analyst: DOMENICA JARA ([id number])[facility])[address] [place] [address] Sodium [Moles/Vol] 139 mmol/L Normal 136-145 [facility] Comment on above: Performed By: #### L AB103, LAB17 ####Loan Review Analyst: DOMENICA JARA ([id number])[facility] [place] [address] Urea nitrogen [Mass/Vol] 16 mg/dL Normal 9-23 [facility] Comment on above: Performed By: #### L AB103, LAB17 ####Loan Review Analyst: DOMENICA JARA ([id number])[facility] [place] [address] Comprehensive metabolic 1998 panelon 03-18-2025 Albumin [Mass/Vol] 2 g/dL Low 3.5 - 5.0 g/dL [facility] [facility] ALP [Catalytic activity/Vol] 241 U/L High 40 - 150 U/L [facility] ALT [Catalytic activity/Vol] 11 U/L NINF - 40 U/L [facility] Anion gap [Moles/Vol] 10 mmol/L 3 - 13 mmol/L [facility] AST [Catalytic activity/Vol] 50 U/L High NINF - 34 U/L [facility] Bilirubin [Mass/Vol] 0.8 mg/dL NINF - 1.2 mg/dL [facility] Calcium [Mass/Vol] 9 mg/dL 8.4 - 10. 2 mg/dL [facility] Chloride [Moles/Vol] 100 mmol/L 98 - 10 7 mmol/L [facility] CO2 [Moles/Vol] 29 mmol/L 22 - 29 mmol/L [facility] Creatinine [Mass/Vol] 2.64 mg/dL High 0.72 - 1.25 mg/dL [facility] GFR/1.73 sq M.predicted (S/P/Bld) [Vol rate/Area] 27 mL/min Low - PINF [facility] Comment on above: Calculation based on the Chronic Kidney Disease Epidemiology Collaboration (CKD-EPI) equation refit without adjustment for race Glucose [Mass/Vol] 73 mg/dL Low 74 - 100 mg/dL [facility] Interpretation and review of laboratory results Abnormal [facility] Potassium [Moles/Vol] 3.4 mmol/L Low 3.5 - 5.1 mmol/L [facility] Comment on above: Plasma potassium macey ues may be up to 0.5 mmol/L lower than serum values. Protein [Mass/Vol] 7.3 g/dL 6.4 - 8.3 g/dL [facility] Sodium [Moles/Vol] 139 mmol/L 136 - 145 mmol/L [facility] Urea nitrogen [Mass/Vol] 16 mg/dL 9 - 23 mg/d L [facility] Laboratory - Chemistry and C hemistry - challengeon 03-18-2025 Magnesium [Mass/Vol] 1.9 mg/dL 1.6 - 2 .6 mg/dL [facility] Laboratory - Coagulationon 0 03-18-2025 PT Coag (Bld) [Time] 15.2 s High 9.0 - 12.0 s [facility] MAGNESIUMon 03-18-2025 Magnesium [Mass/Vol] 1.9 mg/dL Normal 1.6-2.6 [facility] Comment on above: Result Comment: ARPAN Kaplan COMMENTS:Higher values can be expected in females during menses. Performed By: #### L AB103, LAB17 ####Loan Review Analyst: DOMENICA JARA ([phone])[facility] [employer] Magnesium [Mass/Vol]on 03-18 Interpretation and review of laboratory results Normal [facility] Higher values can be expected in females during menses. [facility] No Panel Informationon 03-18 [facility] Interpretation and review of laboratory results Abnormal [facility] PROTHROMBIN TIMEon INR Coag (PPP) [Relative time] 1.5 {INR} High 0.9-1.1 [facility] Comment on above: Result Comment: Vaughn [...] Myocardial Infarction Performed By: #### L AB325, [id number] ####Loan Review Analyst: DOMENICA JARA ([phone])[facility] [employer])[address] [place] [address] PT Coag (PPP) [Time] 15.2 s High 9.0-12.0 [facility] Comment on above: Performed By: #### L AB325, [id number] ####Loan Review Analyst: DOMENICA JARA ([id number])[facility] ([employer])[address] [place] [address] [facility] PT Coag (Bld) [Time]on 03-18 INR Coag (PPP) [Relative time] 1.5 {INR} High 0.9 - 1.1 [facility] Comment on above: Recommended Anticoag ulant [...] Infarction Progress Noteon 03-18-2025 Progress Note Normal [facility] Progress Note Normal [facility] Progress Note Normal [facility] aPTT Coag (Bld) [Time]on aPTT Coag (PPP) [Time] 51.8 s High 20.0 - 30.[address] [facility] Interpretation and review of laboratory results Abnormal [facility] NOTE: The therapeutic time for Heparin anticoagulation, based on Xa activity inhibition, is an APTT of 46-80 seconds. [facility] aPTT Coag (PPP) [Time] 47.6 s High 20.0 - 30.[address] [facility] Interpretation and review of laboratory results Abnormal [facility] NOTE: The therapeutic time for Heparin anticoagulation, based on Xa activity inhibition, is an APTT of 46-80 seconds. [facility] aPTT Coag (PPP) [Time] 48.8 s High 20.0 - 30.[address] [facility] NOTE: The therapeutic time for Heparin anticoagulation, based on Xa activity inhibition, is an APTT of 46-[address] [facility] 30on 03-17-2025 30 Normal [facility] APTTon 03-17-2025 aPTT Coag (Bld) [Time] 44.1 s High 20.0-30.5 [facility] Comment on above: Result Comment: ARPAN Kaplan COMMENTS:NOTE: The therapeutic time for Heparin anticoagulation, based on Xa activity inhibition, is an APTT of 46-80 seconds. Performed By: #### L AB325 ####Loan Review Analyst: DOMENICA JARA ([id number])[facility])[address] [place] [address] aPTT Coag (Bld) [Time] 29.1 s Normal 20.0-30.5 [facility] Comment on above: Result Comment: ARPAN Kaplan COMMENTS:NOTE: The therapeutic time for Heparin anticoagulation, based on Xa activity inhibition, is an APTT of 46-80 seconds. Performed By: #### L AB325 ####Loan Review Analyst: DOMENICA JARA ([id number])[facility])[address] [place] [address] CBC (HEMOGRAM)on 03-17-2025 Erythrocyte distribution width (RBC) [Ratio] 21.2 % High 11.5-15.0 [facility] Comment on above: Performed By: #### L AB294 ####Loan Review Analyst: DOMENICA JARA ([phone])[facility])[address] [place] [address] Hematocrit (Bld) [Volume fraction] 33.8 % Low 40.0-52.0 [facility] Comment on above: Performed By: #### L AB294 ####Loan Review Analyst: DOMENICA JARA ([id number])[facility])[address] [place] [address] Hemoglobin (Bld) [Mass/Vol] 10.0 g/dL Low 13.0-18.0 [facility] Comment on above: Performed By: #### L AB294 ####Loan Review Analyst: DOMENICA JARA ([id number])[facility] ([facility])[address] [place] [address] MCH (RBC) [Entitic mass] 30.2 pg Normal 26.0-34.0 [facility] Comment on above: Performed By: #### L AB294 ####Loan Review Analyst: DOMENICA JARA ([id number])[facility])[address] [place] [address] MCHC 29.6 % Low 30.5-36.0 [facility] Comment on above: Performed By: #### L AB294 ####Loan Review Analyst: DOMENICA JARA ([id number])[facility])[address] [place] [address] MCV (RBC) [Entitic vol] 102.1 fL High 77.0-99.0 [facility] Comment on above: Performed By: #### L AB294 ####Loan Review Analyst: DOMENICA JARA ([id number])[facility])[address] [place] [address] Platelet mean volume (Bld) [Entitic vol] 9.2 fL Normal 9.0-12.7 [facility] Comment on above: Performed By: #### L AB294 ####Loan Review Analyst: DOMENICA JARA ([id number])[facility])[address] [place] [address] Platelets (Bld) [#/Vol] 407 10*3/uL Normal 140-440 [facility] Comment on above: Performed By: #### L AB294 ####Loan Review Analyst: DOMENICA JARA ([id number])[facility])[address] [place] [address] RBC (Bld) [#/Vol] 3.31 10*6/uL Low 4.40-5.90 [facility] Comment on above: Performed By: #### L AB294 ####Loan Review Analyst: DOMENICA JARA ([phone])[facility])[address] [place] [address] WBC (Bld) [#/Vol] 6.7 10*3/uL Normal 3.6-10.7 [facility] Comment on above: Performed By: #### L AB294 ####Loan Review Analyst: DOMENICA JARA ([id number])[facility] ([facility])[address] [place] [address] CBC panel Auto (Bld)Ordered By: Giancarlo Lakhani on 03-17-2025 Erythrocyte distribution width (RBC) [Ratio] 21.2 % High 11.5 - 15.0 % [facility] Hematocrit (Bld) [Volume fraction] 33.8 % Low 40.0 - 52.0 % [facility] Hemoglobin (Bld) [Mass/Vol] 10 g/dL Low 13.0 - 18.0 g/dL [facility] Interpretation and review of laboratory results Abnormal [facility] MCH (RBC) [Entitic mass] 30.2 pg 26. 0 - 34.[address] [facility] MCHC (RBC) [Mass/Vol] 29.6 % Low 30.5 - 36.0 % [facility] MCV (RBC) [Entitic vol] 102.1 fL High 77.0 - 99.[address] [facility] Platelet mean volume (Bld) [Entitic vol] 9.2 fL 9.0 - 12.[address] [facility] Platelets (Bld) [#/Vol] 407 10*3/uL 140 - 440 10*3/uL [facility] RBC (Bld) [#/Vol] 3.31 10*6/uL Low 4.40 - 5.9 0 10*6/uL [facility] WBC (Bld) [#/Vol] 6.7 10*3/uL 3.6 - 10.7 10*3/uL [facility] COMPREHENSIVE METABOLIC PANE Victor M 03-17-2025 Albumin [Mass/Vol] 2.2 g/dL Low 3.5-5.0 [facility] Comment on above: Performed By: #### L AB17, [id number], [id number] ####Loan Review Analyst: DOMENCIA JARA ([id number])[facility] ([facility] [place] [address] ALP [Catalytic activity/Vol] 223 U/L High 40-150 [facility] [employer] [facility] Comment on above: Performed By: #### L AB17, [id number], [id number] ####Loan Review Analyst: DOMENICA JARA ([id number])[facility] ([facility])[address] [place] [address] [place] ALT [Catalytic activity/Vol] 15 U/L Normal <40 [facility] Comment on above: Performed By: #### L AB17, MII112, UIP453 ####Loan Review Analyst: DOMENICA JARA ([phone])[facility] ([facility])[address] [place] [address] Anion gap [Moles/Vol] 12 mmol/L Normal 3-13 [facility] Comment on above: Performed By: #### L AB17, FDV132, QIS401 ####Loan Review Analyst: DOMENICA JARA ([id number])[facility] ([facility])[address] [place] [address] AST [Catalytic activity/Vol] 54 U/L High <34 [facility] Comment on above: Performed By: #### L AB17, [id number], JRB937 ####Loan Review Analyst: DOMENICA JARA ([id number])[facility] ([facility])[address] [place] [address] Bilirubin [Mass/Vol] 0.9 mg/dL Normal <1.2 [facility] Comment on above: Performed By: #### L AB17, UHI537, ICZ089 ####Loan Review Analyst: DOMENICA JARA ([id number])[facility] ([facility])[address] [place] [address] Calcium [Mass/Vol] 9.6 mg/dL Normal 8.4-10.2 [facility] Comment on above: Performed By: #### L AB17, HCE934, STN364 ####Loan Review Analyst: DOMENICA JARA ([id number])[facility] ([facility])[address] [place] [address] [place] Chloride [Moles/Vol] 104 mmol/L Normal 98-107 [facility] Comment on above: Performed By: #### L AB17, BBV854, GCJ090 ####Loan Review Analyst: DOMENICA JARA ([id number])[facility] ([facility])[address] [place] [address] [place] CO2 [Moles/Vol] 25 mmol/L Normal 22-29 [facility] Comment on above: Performed By: #### L AB17, RZT861, OMT470 ####Loan Review Analyst: DOMENICA JARA ([id number])[facility] ([facility])[address] [place] [address] Creatinine [Mass/Vol] 3.25 mg/dL High 0.72-1.25 [facility] Comment on above: Performed By: #### L AB17, YAQ156, ZZJ382 ####Loan Review Analyst: DOMENICA JARA ([id number])[facility] ([facility])[address] [place] [address] GLOMERULAR FILTRATION RATE ML/MIN/1.73 SQ M.PREDICTED 21.1 mL/min/1.73m*2 Low >60.0 [facility] Comment on above: Result Comment: Calc ulation based on the Chronic Kidney Disease Epidemiology Collaboration (CKD-EPI) equation refit without adjustment for race Performed By: #### L AB17, [id number], [id number] ####Loan Review Analyst: DOMENICA JARA ([id number])[facility] ([facility])[address] [place] [address] Glucose [Mass/Vol] 87 mg/dL Normal 74-100 [facility] Comment on above: Performed By: #### L AB17, FLY363, RCC422 ####Loan Review Analyst: DOMENICA JARA ([id number])[facility])[address] [place] [address] Potassium [Moles/Vol] 3.9 mmol/L Normal 3.5-5.1 [facility] Comment on above: Result Comment: [facility] potassium values may be up to 0.5 mmol/L lower than serum values. Performed By: #### L AB17, [id number], GWP772 ####Loan Review Analyst: DOMENICA JARA ([phone])[facility] ([facility])[address] [place] [address] Protein [Mass/Vol] 8.0 g/dL Normal 6.4-8.3 [facility] Comment on above: Performed By: #### L AB17, [id number], RNB901 ####Loan Review Analyst: DOMENICA JARA ([id number])[facility] ([facility])[address] [place] [address] Sodium [Moles/Vol] 141 mmol/L Normal 136-145 [facility] Comment on above: Performed By: #### L AB17, RJT527, [id number] ####Loan Review Analyst: DOMENICA JARA ([id number])[facility] ([facility])[address] [place] [address] Urea nitrogen [Mass/Vol] 22 mg/dL Normal 9-23 [facility] Comment on above: Performed By: #### L AB17, [id number], BMJ771 ####Loan Review Analyst: DOMENICA JARA ([id number])[facility] ([facility])[address] [place] [address] Comprehensive metabolic 1998 panelon 03-17-2025 Albumin [Mass/Vol] 2.2 g/dL Low 3.5 - 5.0 g/dL [facility] ALP [Catalytic activity/Vol] 223 U/L High 40 - 150 U/L [facility] ALT [Catalytic activity/Vol] 15 U/L NINF - 40 U/L [facility] Anion gap [Moles/Vol] 12 mmol/L 3 - 13 mmol/L [facility] AST [Catalytic activity/Vol] 54 U[facility] Bilirubin [Mass/Vol] 0.9 mg/dL NINF - 1.2 mg/dL [facility] Calcium [Mass/Vol] 9.6 mg/dL 8.4 - 10. 2 mg/dL [facility] Chloride [Moles/Vol] 104 mmol/L 98 - 10 7 mmol/L [facility] CO2 [Moles/Vol] 25 mmol/L 22 - 29 mmol/L [facility] Creatinine [Mass/Vol] 3.25 mg/dL High 0.72 - 1.25 mg/dL [facility] GFR/1.73 sq M.predicted (S/P/Bld) [Vol rate/Area] 21.1 mL/min Low - PINF [facility] Comment on above: Calculation based on the Chronic Kidney Disease Epidemiology Collaboration (CKD-EPI) equation refit without adjustment for race Glucose [Mass/Vol] 87 mg/dL 74 - 100 mg/dL [facility] Interpretation and review of laboratory results Abnormal [facility] Potassium [Moles/Vol] 3.9 mmol/L 3.5 - 5.1 mmol/L [facility] Comment on above: Plasma potassium macey ues may be up to 0.5 mmol/L lower than serum values. Protein [Mass/Vol] 8 g/dL 6.4 - 8.3 g/dL [facility] Sodium [Moles/Vol] 141 mmol/L 136 - 145 mmol/L [facility] Urea nitrogen [Mass/Vol] 22 mg/dL 9 - 23 mg/d L [facility] Laboratory - Chemistry and C hemistry - challengeon 03-17-2025 Magnesium [Mass/Vol] 2.2 mg/dL 1.6 - 2 .6 mg/dL [facility] Laboratory - Coagulationon 0 03-17-2025 PT Coag (Bld) [Time] 16 s High 9.0 - 12.0 s [facility] MAGNESIUMon 03-17-2025 Magnesium [Mass/Vol] 2.2 mg/dL Normal 1.6-2.6 [facility] Comment on above: Result Comment: ARPAN Kapaln COMMENTS:Higher values can be expected in females during menses. Performed By: #### L AB17, [id number], [id number] ####Loan Review Analyst: DOMENICA JARA ([phone])[facility])[address] [place] [address] Magnesium [Mass/Vol]on 03-17 Interpretation and review of laboratory results Normal [facility] Higher values can be expected in females during menses. [facility] NT PRO BNPon 03-17-2025 NT PRO BNP >46509 High <125 [facility] Comment on above: Performed By: #### L AB17, [id number], [id number] ####Loan Review Analyst: DOMENICA JARA ([id number])[facility] ([facility])[address] [place] [address] Natriuretic peptide B [Mass/ Vol]on 03-17-2025 Interpretation and review of laboratory results Abnormal [facility] Natriuretic peptide B (Bld) [Mass/Vol] pg/mL High NINF - 125 pg/mL [facility] No Panel Informationon 03-17 [facility] Nursing Noteon 03-17-2025 Nursing Note Normal [facility] PROTHROMBIN TIMEon INR Coag (PPP) [Relative time] 1.5 {INR} High 0.9-1.1 [facility] Comment on above: Result Comment: Vaughn [...] Myocardial Infarction Performed By: #### L AB320 ####Loan Review Analyst: DOMENICA JARA ([phone])[facility])[address] [place] [address] PT Coag (PPP) [Time] 16.0 s High 9.0-12.0 [facility] Comment on above: Performed By: #### L AB320 ####Loan Review Analyst: DOMENICA JARA ([id number])[facility])[address] [place] [address] PT Coag (Bld) [Time]on 03-17 INR Coag (PPP) [Relative time] 1.5 {INR} High 0.9 - 1.1 [facility] Comment on above: Recommended Anticoag ulant [...] and review of laboratory results Abnormal [facility] Progress Noteon 03-17-2025 Progress Note Normal [facility] Progress Note Normal [facility] Progress Note Normal [facility] aPTT Coag (Bld) [Time]on aPTT Coag (PPP) [Time] 44.1 s High 20.0 - 30.[address] [facility] Interpretation and review of laboratory results Abnormal [facility] NOTE: The therapeutic time for Heparin anticoagulation, based on Xa activity inhibition, is an APTT of 46-80 seconds. [facility] aPTT Coag (PPP) [Time] 29.1 s 20.0 - 30.[address] [facility] Interpretation and review of laboratory results Normal [facility] NOTE: The therapeutic time for Heparin anticoagulation, based on Xa activity inhibition, is an APTT of 46-80 seconds. [facility] 30on 03-16-2025 30 Normal [facility] 30 Normal [facility] CBC (HEMOGRAM)on 03-16-2025 Erythrocyte distribution width (RBC) [Ratio] 21.2 % High 11.5-15.0 [facility] Comment on above: Performed By: #### L AB294 ####Loan Review Analyst: DOMENICA JARA ([id number])[address] Hematocrit (Bld) [Volume fraction] 30.2 % Low 40.0-52.0 [facility] Comment on above: Performed By: #### L AB294 ####Loan Review Analyst: DOMENICA JARA ([id number])[address] Hemoglobin (Bld) [Mass/Vol] 9.1 g/dL Low 13.0-18.0 [facility] Comment on above: Performed By: #### L AB294 ####Loan Review Analyst: DOMENICA JARA ([id number])[address] MCH (RBC) [Entitic mass] 30.1 pg Normal 26.0-34.0 [facility] Comment on above: Performed By: #### L AB294 ####Loan Review Analyst: DOMENICA [id number])[facility])[address] [place] [address] MCHC 30.1 % Low 30.5-36.0 [facility] Comment on above: Performed By: #### L AB294 ####Loan Review Analyst: DOMENICA JARA ([phone])[facility])[address] [place] [address] MCV (RBC) [Entitic vol] 100.0 fL High 77.0-99.0 [facility] Comment on above: Performed By: #### L AB294 ####Loan Review Analyst: DOMENICA JARA ([id number])[facility])[address] [place] [address] Platelet mean volume (Bld) [Entitic vol] 9.0 fL Normal 9.0-12.7 [facility] Comment on above: Performed By: #### L AB294 ####Loan Review Analyst: DOMENICA JARA ([phone])[facility] ([facility])[address] [place] [address] Platelets (Bld) [#/Vol] 372 10*3/uL Normal 140-440 [facility] Comment on above: Performed By: #### L AB294 ####Loan Review Analyst: DOMENICA JARA ([id number])[facility])[address] [place] [address] RBC (Bld) [#/Vol] 3.02 10*6/uL Low 4.40-5.90 [facility] Comment on above: Performed By: #### L AB294 ####Loan Review Analyst: DOMENICA JARA ([phone])[facility])[address] [place] [address] WBC (Bld) [#/Vol] 7.0 10*3/uL Normal 3.6-10.7 [facility] Comment on above: Performed By: #### L AB294 ####Loan Review Analyst: DOMENICA JARA ([id number])[facility])[address] [place] [address] CBC panel Auto (Bld)Ordered By: Callie Steele on 03-16-2025 Erythrocyte distribution width (RBC) [Ratio] 21.2 % High 11.5 - 15.0 % [facility] Hematocrit (Bld) [Volume fraction] 30.2 % Low 40.0 - 52.0 % [facility] Hemoglobin (Bld) [Mass/Vol] 9.1 g/dL Low 13.0 - 18.0 g/dL [facility] Interpretation and review of laboratory results Abnormal [facility] MCH (RBC) [Entitic mass] 30.1 pg 26. 0 - 34.[address] [facility] MCHC (RBC) [Mass/Vol] 30.1 % Low 30.5 - 36.0 % [facility] MCV (RBC) [Entitic vol] 100 fL High 77.0 - 99.[address] [facility] Platelet mean volume (Bld) [Entitic vol] 9 fL 9.0 - 12.[address] [facility] Platelets (Bld) [#/Vol] 372 10*3/uL 140 - 440 10*3/uL [facility] RBC (Bld) [#/Vol] 3.02 10*6/uL Low 4.40 - 5.9 0 10*6/uL [facility] WBC (Bld) [#/Vol] 7 10*3/uL 3.6 - 10.7 10*3/uL [facility] COMPREHENSIVE METABOLIC PANE Victor M 03-16-2025 Albumin [Mass/Vol] 2.0 g/dL Low 3.5-5.0 [facility] Comment on above: Performed By: #### L AB17, [id number] ####Loan Review Analyst: DOMENICA JARA ([id number])[address] ALP [Catalytic activity/Vol] 194 U/L High 40-150 [facility] Comment on above: Performed By: #### L AB17, [id number] ####Loan Review Analyst: DOMENICA JARA ([id number])[facility])[address] [place] [address] ALT [Catalytic activity/Vol] 13 U/L Normal <40 [facility] Comment on above: Performed By: #### L AB17, [id number] ####Loan Review Analyst: DOMENICA JARA ([phone])[facility] ([facility] [place] [address] Anion gap [Moles/Vol] 9 mmol/L Normal 3-13 [facility] Comment on above: Performed By: #### L AB17, [id number] ####Loan Review Analyst: DOMENICA JARA ([id number])[facility] ([facility])[address] [place] [address] AST [Catalytic activity/Vol] 47 U/L High <34 [facility] Comment on above: Performed By: #### L AB17, [id number] ####Loan Review Analyst: DOMENICA JARA ([id number])[facility] ([facility])[address] [place] [address] Bilirubin [Mass/Vol] 0.9 mg/dL Normal <1.2 [facility] Comment on above: Performed By: #### L AB17, [id number] ####Loan Review Analyst: DOMENICA JARA ([id number])[facility] ([facility])[address] [place] [address] Calcium [Mass/Vol] 9.1 mg/dL Normal 8.4-10.2 [facility] Comment on above: Performed By: #### L AB17, [id number] ####Loan Review Analyst: DOMENICA JARA ([id number])[facility] ([facility])[address] [place] [address] [place] Chloride [Moles/Vol] 104 mmol/L Normal 98-107 [facility] Comment on above: Performed By: #### L AB17, [id number] ####Loan Review Analyst: DOMENICA JARA ([id number])[facility] ([facility])[address] [place] [address] [place] CO2 [Moles/Vol] 26 mmol/L Normal 22-29 [facility] Comment on above: Performed By: #### L AB17, [id number] ####Loan Review Analyst: DOMENICA JARA ([phone])[facility] ([facility])[address] [place] [address] [place] Creatinine [Mass/Vol] 2.35 mg/dL High 0.72-1.25 [facility] Comment on above: Performed By: #### L AB17, [id number] ####Loan Review Analyst: DOMENICA JARA ([id number])[facility])[address] [place] [address] GLOMERULAR FILTRATION RATE ML/MIN/1.73 SQ M.PREDICTED 31.1 mL/min/1.73m*2 Low >60.0 [facility] Comment on above: Result Comment: Calc ulation based on the Chronic Kidney Disease Epidemiology Collaboration (CKD-EPI) equation refit without adjustment for race Performed By: #### L 17, [id number] ####Loan Review Analyst: DOMENICA JARA ([id number])[facility])[address] [place] [address] Glucose [Mass/Vol] 83 mg/dL Normal 74-100 [facility] Comment on above: Performed By: #### Tameka ISAAC17, [id number] ####Loan Review Analyst: DOMENICA JARA ([phone])[facility])[address] [place] [address] Potassium [Moles/Vol] 4.1 mmol/L Normal 3.5-5.1 [facility] Comment on above: Result Comment: [facility] potassium values may be up to 0.5 mmol/L lower than serum values. Performed By: #### L 17, [id number] ####Loan Review Analyst: DOMENICA JARA ([id number])[facility])[address] [place] [address] Protein [Mass/Vol] 7.3 g/dL Normal 6.4-8.3 [facility] Comment on above: Performed By: #### L AB17, [id number] ####Loan Review Analyst: DOMENICA JARA ([id number])[facility])[address] [place] [address] Sodium [Moles/Vol] 139 mmol/L Normal 136-145 [facility] Comment on above: Performed By: #### L AB17, [id number] ####Loan Review Analyst: DOMENICA [id number])[facility] ([facility])[address] [place] [address] Urea nitrogen [Mass/Vol] 18 mg/dL Normal 9-23 [facility] Comment on above: Performed By: #### L AB17, [id number] ####Loan Review Analyst: DOMENICA JARA ([phone])[facility] [place] [address] Comprehensive metabolic 1998 panelon 03-16-2025 Albumin [Mass/Vol] 2 g/dL Low 3.5 - 5.0 g/dL [facility] ALP [Catalytic activity/Vol] 194 U/L High 40 - 150 U/L [facility] ALT [Catalytic activity/Vol] 13 U/L NINF - 40 U/L [facility] Anion gap [Moles/Vol] 9 mmol/L 3 - 13 mmol/L [facility] AST [Catalytic activity/Vol] 47 U/L High NINF - 34 U/L [facility] Bilirubin [Mass/Vol] 0.9 mg/dL NINF - 1.2 mg/dL [facility] Calcium [Mass/Vol] 9.1 mg/dL 8.4 - 10. 2 mg/dL [facility] Chloride [Moles/Vol] 104 mmol/L 98 - 10 7 mmol/L [facility] CO2 [Moles/Vol] 26 mmol/L 22 - 29 mmol/L [facility] Creatinine [Mass/Vol] 2.35 mg/dL High 0.72 - 1.25 mg/dL [facility] GFR/1.73 sq M.predicted (S/P/Bld) [Vol rate/Area] 31.1 mL/min Low - PINF [facility] Comment on above: Calculation based on the Chronic Kidney Disease Epidemiology Collaboration (CKD-EPI) equation refit without adjustment for race Glucose [Mass/Vol] 83 mg/dL 74 - 100 mg/dL [facility] Interpretation and review of laboratory results Abnormal [facility] Potassium [Moles/Vol] 4.1 mmol/L 3.5 - 5.1 mmol/L [facility] Comment on above: Plasma potassium macey ues may be up to 0.5 mmol/L lower than serum values. Protein [Mass/Vol] 7.3 g/dL 6.4 - 8.3 g/dL [facility] Sodium [Moles/Vol] 139 mmol/L 136 - 145 mmol/L [facility] Urea nitrogen [Mass/Vol] 18 mg/dL 9 - 23 mg/d L [facility] - Chemistry and C hemistry - challengeon 03-16-2025 Magnesium [Mass/Vol] 2 mg/dL 1.6 - 2 .6 mg/dL [facility] - Coagulationon 0 03-16-2025 PT Coag (Bld) [Time] 17.3 s High 9.0 - 12.0 s [facility] MAGNESIUMon 03-16-2025 Magnesium [Mass/Vol] 2.0 mg/dL Normal 1.6-2.6 [facility] Comment on above: Result Comment: ARPAN R COMMENTS:Higher values can be expected in females during menses. Performed By: #### L AB17, [id number] ####Loan Review Analyst: DOMENICA JARA ([phone])[address] Magnesium [Mass/Vol]on 03-16 Interpretation and review of laboratory results Normal [facility] Higher values can be expected in females during menses. [facility] No Panel Informationon 03-16 [facility] PROTHROMBIN TIMEon INR Coag (PPP) [Relative time] 1.7 {INR} High 0.9-1.1 [facility] Comment on above: Result Comment: Vaughn [...] Myocardial Infarction Performed By: #### L AB320 ####Loan Review Analyst: DOMENICA JARA ([id number])[facility] ([facility])[address] [place] [address] PT Coag (PPP) [Time] 17.3 s High 9.0-12.0 [facility] Comment on above: Performed By: #### L AB320 ####Loan Review Analyst: DOMENICA JARA ([phone])[facility])[address] [place] [address] PT Coag (Bld) [Time]on 03-16 INR Coag (PPP) [Relative time] 1.7 {INR} High 0.9 - 1.1 [facility] Comment on above: Recommended Anticoag ulant [...] and review of laboratory results Abnormal [facility] Progress Noteon 03-16-2025 Progress Note Normal [facility] Progress Note Normal [facility] Progress Note Normal [facility] Progress Note Normal [facility] Progress Note Normal [facility] 30on 03-15-2025 30 Normal [facility] 30 Normal [facility] [id number] 03-15-2025 [id number] Normal [facility] CBC (HEMOGRAM)on 03-15-2025 Erythrocyte distribution width (RBC) [Ratio] 21.3 % High 11.5-15.0 [facility] Comment on above: Performed By: #### L AB294 ####Loan Review Analyst: DOMENICA JARA ([phone])[facility] ([facility])[address] [place] [address] Hematocrit (Bld) [Volume fraction] 30.1 % Low 40.0-52.0 [facility] Comment on above: Performed By: #### L AB294 ####Loan Review Analyst: DOMENICA JARA ([phone])[facility] ([facility])[address] [place] [address] Hemoglobin (Bld) [Mass/Vol] 9.2 g/dL Low 13.0-18.0 [facility] Comment on above: Performed By: #### L AB294 ####Loan Review Analyst: DOMENICA JARA ([id number])[facility])[address] [place] [address] MCH (RBC) [Entitic mass] 30.5 pg Normal 26.0-34.0 [facility] Comment on above: Performed By: #### L AB294 ####Loan Review Analyst: DOMENICA JARA ([phone])[facility] ([facility])[address] [place] [address] MCHC 30.6 % Normal 30.5-36.0 [facility] Comment on above: Performed By: #### L AB294 ####Loan Review Analyst: DOMENICA JARA ([id number])[facility])[address] [place] [address] MCV (RBC) [Entitic vol] 99.7 fL High 77.0-99.0 [facility] Comment on above: Performed By: #### L AB294 ####Loan Review Analyst: DOMENICA JARA ([id number])[facility] ([facility])[address] [place] [address] Platelet mean volume (Bld) [Entitic vol] 9.0 fL Normal 9.0-12.7 [facility] Comment on above: Performed By: #### L AB294 ####Loan Review Analyst: DOMENICA JARA ([id number])[facility])[address] [place] [address] Platelets (Bld) [#/Vol] 392 10*3/uL Normal 140-440 [facility] Comment on above: Performed By: #### L AB294 ####Loan Review Analyst: DOMENICA JARA ([id number])[facility])[address] [place] [address] RBC (Bld) [#/Vol] 3.02 10*6/uL Low 4.40-5.90 [facility] Comment on above: Performed By: #### L AB294 ####Loan Review Analyst: DOMENICA JARA ([id number])[facility] ([facility])[address] [place] [address] WBC (Bld) [#/Vol] 6.7 10*3/uL Normal 3.6-10.7 [facility] Comment on above: Performed By: #### L AB294 ####Loan Review Analyst: DOMENICA JARA ([id number])[facility] ([facility])[address] [place] [address] CBC panel Auto (Bld)on 03-15 Erythrocyte distribution width (RBC) [Ratio] 21.3 % High 11.5 - 15.0 % [facility] Hematocrit (Bld) [Volume fraction] 30.1 % Low 40.0 - 52.0 % [facility] Hemoglobin (Bld) [Mass/Vol] 9.2 g/dL Low 13.0 - 18.0 g/dL [facility] Interpretation and review of laboratory results Abnormal [facility] MCH (RBC) [Entitic mass] 30.5 pg 26. 0 - 34.[address] [facility] MCHC (RBC) [Mass/Vol] 30.6 % 30.5 - 36.0 % [facility] MCV (RBC) [Entitic vol] 99.7 fL High 77.0 - 99.[address] [facility] Platelet mean volume (Bld) [Entitic vol] 9 fL 9.0 - 12.[address] [facility] Platelets (Bld) [#/Vol] 392 10*3/uL 140 - 440 10*3/uL [facility] RBC (Bld) [#/Vol] 3.02 10*6/uL Low 4.40 - 5.9 0 10*6/uL [facility] WBC (Bld) [#/Vol] 6.7 10*3/uL 3.6 - 10.7 10*3/uL [facility] COMPREHENSIVE METABOLIC PANE Victor M 03-15-2025 Albumin [Mass/Vol] 2.0 g/dL Low 3.5-5.0 [facility] Comment on above: Performed By: #### L AB103, LAB17 ####Loan Review Analyst: DOMENICA JARA ([phone])[facility] ([facility] [place] [address] [place] ALP [Catalytic activity/Vol] 201 U/L High 40-150 [facility] Comment on above: Performed By: #### L AB103, LAB17 ####Loan Review Analyst: DOMENICA JARA ([id number])[facility] ([facility])[address] [place] [address] [place] ALT [Catalytic activity/Vol] 14 U/L Normal <40 [facility] Comment on above: Performed By: #### L AB103, LAB17 ####Loan Review Analyst: DOMENICA JARA ([id number])[facility] ([facility])[address] Anion gap [Moles/Vol] 11 mmol/L Normal 3-13 [facility] Comment on above: Performed By: #### L AB103, LAB17 ####Loan Review Analyst: DOMENICA JARA ([id number])[facility] ([facility])[address] [place] [address] [place] AST [Catalytic activity/Vol] 49 U/L High <34 [facility] Comment on above: Performed By: #### L VARGHESE, LAB17 ####Loan Review Analyst: DOMENICA JARA ([id number])[facility] ([facility])[address] [place] [address] [place] Bilirubin [Mass/Vol] 0.8 mg/dL Normal <1.2 [facility] Comment on above: Performed By: #### L AB103, LAB17 ####Loan Review Analyst: DOMENICA JARA ([id number])[facility] ([facility])[address] [place] [address] [place] Calcium [Mass/Vol] 9.2 mg/dL Normal 8.4-10.2 [facility] Comment on above: Performed By: #### L AB103, LAB17 ####Loan Review Analyst: DOMENICA JARA ([id number])[facility] ([facility])[address] [place] [address] [place] Chloride [Moles/Vol] 100 mmol/L Normal 98-107 [facility] Comment on above: Performed By: #### L AB103, LAB17 ####Loan Review Analyst: DOMENICA JARA ([phone])[facility])[address] [place] [address] CO2 [Moles/Vol] 28 mmol/L Normal 22-29 [facility] Comment on above: Performed By: #### L AB103, LAB17 ####Loan Review Analyst: DOMENICA JARA ([phone])[facility])[address] [place] [address] Creatinine [Mass/Vol] 3.13 mg/dL High 0.72-1.25 [facility] Comment on above: Performed By: #### L VARGHESE, LAB17 ####Loan Review Analyst: DOMENICA JARA ([phone])[facility])[address] [place] [address] GLOMERULAR FILTRATION RATE ML/MIN/1.73 SQ M.PREDICTED 22.0 mL/min/1.73m*2 Low >60.0 [facility] Comment on above: Result Comment: Calc ulation based on the Chronic Kidney Disease Epidemiology Collaboration (CKD-EPI) equation refit without adjustment for race Performed By: #### L VARGHESE, LAB17 ####Loan Review Analyst: DOMENICA JARA ([id number])[facility])[address] [place] [address] Glucose [Mass/Vol] 91 mg/dL Normal 74-100 [facility] Comment on above: Performed By: #### L AB103, LAB17 ####Loan Review Analyst: DOMENICA JARA ([id number])[facility])[address] [place] [address] Potassium [Moles/Vol] 4.5 mmol/L Normal 3.5-5.1 [facility] Comment on above: Result Comment: [facility] potassium values may be up to 0.5 mmol/L lower than serum values. Performed By: #### L AB103, LAB17 ####Loan Review Analyst: DOMENICA JARA ([id number])[facility])[address] [place] [address] Protein [Mass/Vol] 7.6 g/dL Normal 6.4-8.3 [facility] Comment on above: Performed By: #### L AB103, LAB17 ####Loan Review Analyst: DOMENICA JARA ([phone])[facility] ([facility])[address] [place] [address] Sodium [Moles/Vol] 139 mmol/L Normal 136-145 [facility] Comment on above: Performed By: #### Tameka AB103, LAB17 ####Loan Review Analyst: DOMENICA JARA ([phone])[facility] ([facility])[address] [place] [address] Urea nitrogen [Mass/Vol] 30 mg/dL High 9-23 [facility] Comment on above: Performed By: #### Tameka ISAAC103, LAB17 ####Loan Review Analyst: DOMENICA JARA ([phone])[facility] ([facility])[address] [place] [address] Comprehensive metabolic 1998 panelOrdered By: Jenni Romano on 03-15-2025 Albumin [Mass/Vol] 2 g/dL Low 3.5 - 5.0 g/dL [facility] ALP [Catalytic activity/Vol] 201 U/L High 40 - 150 U/L [facility] ALT [Catalytic activity/Vol] 14 U/L NINF - 40 U/L [facility] Anion gap [Moles/Vol] 11 mmol/L 3 - 13 mmol/L [facility] AST [Catalytic activity/Vol] 49 U/L High NINF - 34 U/L [facility] Bilirubin [Mass/Vol] 0.8 mg/dL NINF - 1.2 mg/dL [facility] Calcium [Mass/Vol] 9.2 mg/dL 8.4 - 10. 2 mg/dL [facility] Chloride [Moles/Vol] 100 mmol/L 98 - 10 7 mmol/L [facility] CO2 [Moles/Vol] 28 mmol/L 22 - 29 mmol/L [facility] Creatinine [Mass/Vol] 3.13 mg/dL High 0.72 - 1.25 mg/dL [facility] GFR/1.73 sq M.predicted (S/P/Bld) [Vol rate/Area] 22 mL/min Low - PINF [facility] Comment on above: Calculation based on the Chronic Kidney Disease Epidemiology Collaboration (CKD-EPI) equation refit without adjustment for race Glucose [Mass/Vol] 91 mg/dL 74 - 100 mg/dL [facility] Interpretation and review of laboratory results Abnormal [facility] Potassium [Moles/Vol] 4.5 mmol/L 3.5 - 5.1 mmol/L [facility] Comment on above: Plasma potassium macey ues may be up to 0.5 mmol/L lower than serum values. Protein [Mass/Vol] 7.6 g/dL 6.4 - 8.3 g/dL [facility] Sodium [Moles/Vol] 139 mmol/L 136 - 145 mmol/L [facility] Urea nitrogen [Mass/Vol] 30 mg/dL High 9 - 23 mg/d L [facility] Consulton 03-15-2025 Consult Normal [facility] Consult Normal [facility] FREE T4on 03-15-2025 Free T4 [Mass/Vol] 0.89 ng/dL Normal 0.70-1.48 [facility] Comment on above: Performed By: #### L AB127 ####Loan Review Analyst: DOMENICA JARA ([phone])[address] Free T4 [Mass/Vol]on 025 Free T4 Dialysis [Mass/Vol] 0.89 ng/dL 0.70 - 1.48 ng/dL [facility] Interpretation and review of laboratory results Normal [facility] Laboratory - Chemistry and C hemistry - challengeon 03-15-2025 Magnesium [Mass/Vol] 2 mg/dL 1.6 - 2 .6 mg/dL [facility] - Coagulationon 0 03-15-2025 PT Coag (Bld) [Time] 17.9 s High 9.0 - 12.0 s [facility] MAGNESIUMon 03-15-2025 Magnesium [Mass/Vol] 2.0 mg/dL Normal 1.6-2.6 [facility] Comment on above: Result Comment: ORDE R COMMENTS:Higher values can be expected in females during menses. Performed By: #### L AB103, LAB17 ####Loan Review Analyst: DOMENICA JARA ([phone])[facility])[address] [place] [address] Magnesium [Mass/Vol]on 03-15 Interpretation and review of laboratory results Normal [facility] Higher values can be expected in females during menses. [facility] Nursing Noteon 03-15-2025 Nursing Note Normal [facility] Nursing Note Normal [facility] PROTHROMBIN TIMEon INR Coag (PPP) [Relative time] 1.7 {INR} High 0.9-1.1 [facility] Comment on above: Result Comment: Vaughn [...] Myocardial Infarction Performed By: #### L AB320 ####Loan Review Analyst: DOMENICA JARA ([phone])[facility])[address] [place] [address] PT Coag (PPP) [Time] 17.9 s High 9.0-12.0 [facility] Comment on above: Performed By: #### L AB320 ####Loan Review Analyst: DOMENICA JARA ([phone])[facility])[address] [place] [address] PT Coag (Bld) [Time]on 03-15 INR Coag (PPP) [Relative time] 1.7 {INR} High 0.9 - 1.1 [facility] Comment on above: Recommended Anticoag ulant [...] Interpretation and review of laboratory results Abnormal [facility] Progress Noteon 03-15-2025 Progress Note Normal [facility] Progress Note Normal [facility] Progress Note Normal [facility] Progress Note Normal [facility] Prothrombin Time w/INRon INR Normal [facility] Comment on above: Order Comment: 413.2 Result Comment: [facility] Performed By: #### L 300.3900 #### [facility] [address] [place], [place], [address] PROTIME Normal 11.7-14.9 [facility] Comment on above: Order Comment: 413.2 Result Comment: [facility] Performed By: #### L 300.3900 #### [facility] [address] [place], [place], [address] [place] Lower extremity arteryOrd ered By: Sulaiman Mullen on 03-15-2025 Right arm BP 130 mmHg [facility] [employer] Work Phone: Lower extremity arteryon 03-15-2025 Right side findings: [...] feet. CV CPACS 30on 03-14-2025 30 Normal [facility] [id number] 03-14-2025 [id number] Normal [facility] BASIC METABOLIC PANELon 02-25 Anion gap [Moles/Vol] 11 mmol/L Normal 3-13 [facility] Comment on above: Performed By: #### L AB15, [id number], LAB18 ####Loan Review Analyst: DOMENICA JARA ([phone])[facility] ([facility])[address] [place] [address] Calcium [Mass/Vol] 10.1 mg/dL Normal 8.4-10.2 [facility] Comment on above: Performed By: #### L AB15, [id number], LAB18 ####Loan Review Analyst: DOMENICA JARA ([phone])[facility] ([facility])[address] [place] [address] Chloride [Moles/Vol] 102 mmol/L Normal 98-107 [facility] Comment on above: Performed By: #### L AB15, [id number], LAB18 ####Loan Review Analyst: DOMENICA JARA ([phone])[facility] ([facility])[address] [place] [address] [place] CO2 [Moles/Vol] 28 mmol/L Normal 22-29 [facility] Comment on above: Performed By: #### L AB15, [id number], LAB18 ####Loan Review Analyst: DOMENICA JARA ([phone])[facility])[address] [place] [address] Creatinine [Mass/Vol] 4.96 mg/dL High 0.72-1.25 [facility] Comment on above: Performed By: #### L AB15, [id number], LAB18 ####Loan Review Analyst: DOMENICA JARA ([phone])[facility] ([facility])[address] [place] [address] GLOMERULAR FILTRATION RATE ML/MIN/1.73 SQ M.PREDICTED 12.7 mL/min/1.73m*2 Low >60.0 [facility] Comment on above: Result Comment: Calc ulation based on the Chronic Kidney Disease Epidemiology Collaboration (CKD-EPI) equation refit without adjustment for race Performed By: #### L AB15, [id number], LAB18 ####Loan Review Analyst: DOMENICA JARA ([id number])[facility] ([facility])[address] [place] [address] Glucose [Mass/Vol] 99 mg/dL Normal 74-100 [facility] Comment on above: Performed By: #### L AB15, [id number], LAB18 ####Loan Review Analyst: DOMENICA JARA ([phone])[facility])[address] [place] [address] Potassium [Moles/Vol] 5.2 mmol/L High 3.5-5.1 [facility] Comment on above: Result Comment: [facility] potassium values may be up to 0.5 mmol/L lower than serum values. Performed By: #### L AB15, [id number], LAB18 ####Loan Review Analyst: DOMENICA JARA ([phone])[facility] ([facility])[address] [place] [address] Sodium [Moles/Vol] 141 mmol/L Normal 136-145 [facility] Comment on above: Performed By: #### L AB15, [id number], LAB18 ####Loan Review Analyst: DOMENICA JARA ([phone])[facility] ([facility])[address] [place] [address] [place] Urea nitrogen [Mass/Vol] 57 mg/dL High 9-23 [facility] Comment on above: Performed By: #### L AB15, [id number], LAB18 ####Loan Review Analyst: DOMENICA JARA ([phone])[facility] ([facility])[address] [place] [address] [place] Basic metabolic 1998 panelOr dered By: Brandy Ross on 03-14-2025 Anion gap [Moles/Vol] 11 mmol/L 3 - 13 mmol/L [facility] Calcium [Mass/Vol] 10.1 mg/dL 8.4 - 10. 2 mg/dL [facility] Chloride [Moles/Vol] 102 mmol/L 98 - 10 7 mmol/L [facility] CO2 [Moles/Vol] 28 mmol/L 22 - 29 mmol/L [facility] Creatinine [Mass/Vol] 4.96 mg/dL High 0.72 - 1.25 mg/dL [facility] GFR/1.73 sq M.predicted (S/P/Bld) [Vol rate/Area] 12.7 mL/min Low - PINF [facility] Comment on above: Calculation based on the Chronic Kidney Disease Epidemiology Collaboration (CKD-EPI) equation refit without adjustment for race Glucose [Mass/Vol] 99 mg/dL 74 - 100 mg/dL [facility] Interpretation and review of laboratory results Abnormal [facility] Potassium [Moles/Vol] 5.2 mmol/L High 3.5 - 5.1 mmol/L [facility] Comment on above: Plasma potassium macey ues may be up to 0.5 mmol/L lower than serum values. Sodium [Moles/Vol] 141 mmol/L 136 - 145 mmol/L [facility] Urea nitrogen [Mass/Vol] 57 mg/dL High 9 - 23 mg/d L [facility] Consulton 03-14-2025 Consult Normal [facility] Consult Normal [facility] Consult Normal [facility] Consult Normal [facility] ECG 12-LEADon 03-14-2025 ECG 12-LEAD IMPRESSION: Atrial flutter IVCD, consider RBBB Probable lateral infarct, age indeterminate Anteroseptal infarct, 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 Electronically Signed On 03-14-2025 15:38:49 EDT by Ryan Magdaleno [facility] LIPID PANELon 03-14-2025 Cholesterol [Mass/Vol] 159 mg/dL Normal <200 [facility] Comment on above: Performed By: #### L AB15, [id number], LAB18 ####Loan Review Analyst: DOMENICA JARA ([phone])[facility] ([address] Cholesterol in HDL [Mass/Vol] 30 mg/dL Low >=60 [facility] Comment on above: Performed By: #### L AB15, MDR239, LAB18 ####Loan Review Analyst: DOMENICA JARA ([phone])[facility] ([facility])[address] [place] [address] Cholesterol.total/Choles terol in HDL [Mass ratio] 5 {ratio} Normal [facility] Comment on above: Result Comment: Ref Range:< 3 Low Risk for CHD3-6 Mod Risk for CHD> 6 High Risk for CHD Performed By: #### L AB15, [id number], LAB18 ####Loan Review Analyst: DOMENICA JARA ([id number])[facility] ([facility])[address] [place] [address] LOW DENSITY LIPOPROTEIN 109 mg/dL High 0-<100 [facility] Comment on above: Performed By: #### Tameka AB15, [id number], LAB18 ####Loan Review Analyst: DOMENICA JARA ([id number])[facility] ([facility])[address] [place] [address] NON-HDL CHOLESTEROL, CALCULATED 129 Normal <130 [facility] Comment on above: Performed By: #### Tameka AB15, [id number], LAB18 ####Loan Review Analyst: DOMENICA JARA ([id number])[facility] ([facility])[address] [place] [address] Triglyceride [Mass/Vol] 98 mg/dL Normal <150 [facility] Comment on above: Performed By: #### L AB15, [id number], LAB18 ####Loan Review Analyst: DOMENICA JARA ([id number])[facility] ([facility])[address] [place] [address] [place] VERY LOW DENSITY LIPOPROTEIN, CALCULATED 20 mg/dL Normal <=30 [facility] Comment on above: Performed By: #### L AB15, [id number], LAB18 ####Loan Review Analyst: DOMENICA JARA ([id number])[facility] ([facility])[address] [place] [address] Laboratory - Chemistry and C hemistry - challengeon 06-18-2025 Magnesium [Mass/Vol] 2.2 mg/dL 1.6 - 2 .6 mg/dL [facility] [employer] Lipid 1996 panelon 5 Cholesterol [Mass/Vol] 159 mg/dL NINF - 200 mg/dL [facility] Cholesterol in HDL [Mass/Vol] 30 mg/dL Low 60 - PINF mg/dL [facility] Cholesterol in LDL [Mass/Vol] 109 mg/dL High 0 - <100 [facility] Cholesterol.total/Choles terol in HDL [Mass ratio] 5 {ratio} [facility] Comment on above: Ref Range: < 3 Low Risk for CHD 3-6 Mod Risk for CHD > 6 High Risk for CHD Interpretation and review of laboratory results Abnormal [facility] NON-HDL CHOLESTEROL, CALCULATED 129 NINF - 130 [facility] Triglyceride [Mass/Vol] 98 mg/dL NINF - 150 mg/dL [facility] VERY LOW DENSITY LIPOPROTEIN, CALCULATED 20 mg/dL NINF - 30 mg/dL [facility] MAGNESIUMon 03-14-2025 Magnesium [Mass/Vol] 2.2 mg/dL Normal 1.6-2.6 [facility] Comment on above: Result Comment: ARPAN Kaplan COMMENTS:Higher values can be expected in females during menses. Performed By: #### L AB15, [id number], LAB18 ####Loan Review Analyst: DOMENICA JARA ([id number])[address] Magnesium [Mass/Vol]on 03-14 Interpretation and review of laboratory results Normal [facility] Higher values can be expected in females during menses. [facility] No Panel InformationOrdered By: Ryan Magdaleno on 03-14-2025 P Vandiver 0 degrees [employer] Work Phone: CO Interval 0 ms [employer] Work Phone: QRS Vandiver 146 degrees [employer] Work Phone: QRSD Interval 127 ms [facility] [employer] Work Phone: QT Interval 397 ms [employer] Work Phone: QTC Interval 542 ms [employer] Work Phone: T Wave Vandiver -57 degrees [employer] Phone: [employer] Phone: No Panel Informationon 03-14 Atrial flutter IVCD, consider RBBB Probable lateral infarct, age indeterminate Anteroseptal infarct, 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 Electronically Signed On 03-14-2025 15:38:49 EDT by Ryan Yeboah MD - 03/14/2025 IMPRESSION: Atrial flutter IVCD, consider RBBB Probable lateral infarct, age indeterminate Anteroseptal infarct, 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 Electronically Signed On 03-14-2025 15:38:49 EDT by Ryan Magdaleno [facility] Nursing Noteon 03-14-2025 Nursing Note Normal [facility] Progress Noteon 03-14-2025 Progress Note Normal [facility] Progress Note Normal [facility] Progress Note Normal [facility] Vital signsOrdered By: Ryan Magdaleno on 03-14-2025 Heart rate 112 /min bpm [facility] [employer] Phone: 30on 03-13-2025 30 Normal [facility] BLOOD GAS, VENOUSon 03-13-20 25 AMOUNT OF OXYGEN Normal [facility] Comment on above: Result Comment: ARPAN Kaplan COMMENTS:Assessment of oxygenation is best done with an arterial blood gas determination. Reference ranges for pO2, bicarbonate, and base excess are for mixed venous blood. Specimens drawn from a peripheral vein will often have higher values. Performed By: #### L [id number] ####Loan Review Analyst: FENG CONSTANTINO ([id number])[facility] ([facility])[address] [place] [address] Base excess Calc (BldV) [Moles/Vol] 2.2 mmol/L Normal -3.0-3.0 [facility] Comment on above: Performed By: #### L AB79 ####Loan Review Analyst: FENG CONSTANTINO ([id number])[facility] ([facility])[address] [place] [address] [place] CO2 [Moles/Vol] 28.9 mmol/L Normal 23.0-30.0 [facility] Comment on above: Performed By: #### L AB79 ####Loan Review Analyst: FENG COLEGEORGE ([id number])[facility] [place] ([facility])[address] HCO3 (Bld) [Moles/Vol] 27.5 mmol/L Normal 21.0-30.0 [facility] Comment on above: Performed By: #### L AB79 ####Loan Review Analyst: FENG COLEGEORGE ([id number])[facility] ([facility])[address] Hemoglobin (Bld) [Mass/Vol] 11.8 g/dL Low Screen only [facility] Comment on above: Performed By: #### L AB79 ####Loan Review Analyst: FENG VILLAGOMEZALESIA ([id number])[facility] ([facility])[address] OXYGEN (MM HG) IN VENOUS BLOOD 33.5 mm Hg Normal [facility] Comment on above: Performed By: #### L AB79 ####Loan Review Analyst: FENG COLEGEORGE ([id number])[facility] ([facility])[address] OXYGEN SATURATION (%) IN VENOUS BLOOD 57.2 % Normal [facility] Comment on above: Performed By: #### L AB79 ####Loan Review Analyst: FENG COLEGEORGE ([id number])[facility] ([facility])[address] [place] [address] [place] PCO2, JOHNATHAN 45.6 mm Hg Normal 38.0-56.0 [facility] Comment on above: Performed By: #### L AB79 ####Loan Review Analyst: FENG CONSTANTINO ([id number])[facility] ([facility])[address] PH VENOUS 7.398 Normal 7.320-7.420 [facility] Comment on above: Performed By: #### L [id number] ####Loan Review Analyst: FENG CONSTANTINO ([id number])[facility] ([facility])[address] SOURCE OF OXYGEN Nasal Cannula (LPM) Normal [facility] Comment on above: Performed By: #### L AB79 ####Loan Review Analyst: FENG CONSTANTINO ([id number])[facility] ([facility])[address] CBC W Auto Differential pane l (Bld)Ordered By: Lakisha Paula on 03-13-2025 Basophils (Bld) [#/Vol] 0.1 10*3/uL 0.0 - 0.2 10*3/uL [facility] Basophils/100 WBC (Bld) 0.6 % 0.0 - 2.0 % [facility] Eosinophils (Bld) [#/Vol] 0.2 10*3/uL 0.0 - 0.5 10*3/uL [facility] Eosinophils/100 WBC (Bld) 2 % 0.0 - 6.0 % [facility] Erythrocyte distribution width (RBC) [Ratio] 21.2 % High 11.5 - 15.0 % [facility] Hematocrit (Bld) [Volume fraction] 28.4 % Low 40.0 - 52.0 % [facility] Hemoglobin (Bld) [Mass/Vol] 8.5 g/dL Low 13.0 - 18.0 g/dL [facility] Immature granulocytes (Bld) [#/Vol] 0 10*3/uL NINF - 0.1 10*3/uL [facility] Immature granulocytes/100 WBC (Bld) 0.5 % 0.0 - 2.0 % [facility] Interpretation and review of laboratory results Abnormal [facility] Lymphocytes (Bld) [#/Vol] 1.2 10*3/uL 1.0 - 4.3 10*3/uL [employer] [facility] Lymphocytes/100 WBC (Bld) 15.4 % 15.0 - 45.0 % [facility] MCH (RBC) [Entitic mass] 29.7 pg 26. 0 - 34.0 pg [facility] MCHC (RBC) [Mass/Vol] 29.9 % Low 30.5 - 36.0 % [facility] MCV (RBC) [Entitic vol] 99.3 fL High 77.0 - 99.[address] [facility] Monocytes (Bld) [#/Vol] 1.4 10*3/uL High 0.0 - 0.9 10*3/uL [facility] Monocytes/100 WBC (Bld) 16.9 % High 5.0 - 13.0 % [facility] Neutrophils (Bld) [#/Vol] 5.2 10*3/uL 1.8 - 7.5 10*3/uL [facility] Neutrophils/100 WBC (Bld) 64.6 % 38.0 - 82.0 % [facility] Nucleated RBC/100 WBC (Bld) [Ratio] 0 % [facility] Platelet mean volume (Bld) [Entitic vol] 9.2 fL 9.0 - 12.[address] [facility] Platelets (Bld) [#/Vol] 392 10*3/uL 140 - 440 10*3/uL [facility] RBC (Bld) [#/Vol] 2.86 10*6/uL Low 4.40 - 5.9 0 10*6/uL [facility] WBC (Bld) [#/Vol] 8 10*3/uL 3.6 - 10.7 10*3/uL [facility] CBC WITH AUTO DIFFERENTIALon 03-13-2025 Basophils (Bld) [#/Vol] 0.1 10*3/uL Normal 0.0-0.2 [facility] Comment on above: Performed By: #### L [id number] ####Loan Review Analyst: FENG CONSTANTINO ([id number])[facility] ([facility])[address] [place] [address] Basophils/100 WBC (Bld) 0.6 % Normal 0.0-2.0 [facility] Comment on above: Performed By: #### L [id number] ####Loan Review Analyst: FENG CONSTANTINO ([id number])[facility] ([facility])[address] Eosinophils (Bld) [#/Vol] 0.2 10*3/uL Normal 0.0-0.5 [facility] Comment on above: Performed By: #### L [id number] ####Loan Review Analyst: FENG COLEGEORGE ([id number])[facility] ([facility])[address] Eosinophils/100 WBC (Bld) 2.0 % Normal 0.0-6.0 [facility] Comment on above: Performed By: #### L [id number] ####Loan Review Analyst: FENG CONSTANTINO ([id number])[facility] [place] [facility] Erythrocyte distribution width (RBC) [Ratio] 21.2 % High 11.5-15.0 [facility] Comment on above: Performed By: #### L [id number] ####Loan Review Analyst: FENG COLEGEORGE ([id number])[facility])[address] [place] [address] Hematocrit (Bld) [Volume fraction] 28.4 % Low 40.0-52.0 [facility] Comment on above: Performed By: #### L [id number] ####Loan Review Analyst: FENG COLEGEORGE ([id number])[facility])[address] Hemoglobin (Bld) [Mass/Vol] 8.5 g/dL Low 13.0-18.0 [facility] Comment on above: Performed By: #### L [id number] ####Loan Review Analyst: FENG CONSTANTINO ([id number])[facility])[address] IMMATURE GRANS % 0.5 % Normal 0.0-2.0 [facility] Comment on above: Performed By: #### L [id number] ####Loan Review Analyst: FENG CONSTANTINO ([id number])[facility])[address] IMMATURE GRANS ABSOLUTE 0.0 10*3/uL Normal <0.1 [facility] Comment on above: Performed By: #### L [id number] ####Loan Review Analyst: FENGLINO VILLAGOMEZMitzyGEORGE ([id number])[facility] ([facility])[address] Lymphocytes (Bld) [#/Vol] 1.2 10*3/uL Normal 1.0-4.3 [facility] Comment on above: Performed By: #### L [id number] ####Loan Review Analyst: FENG DOUGIE ([id number])[facility] ([facility])[address] Lymphocytes/100 WBC (Bld) 15.4 % Normal 15.0-45.0 [facility] Comment on above: Performed By: #### L [id number] ####Loan Review Analyst: FENG CONSTANTINO ([id number])[facility] [place] ([facility])[address] [place] [address] MCH (RBC) [Entitic mass] 29.7 pg Normal 26.0-34.0 [facility] Comment on above: Performed By: #### L [id number] ####Loan Review Analyst: FENG CONSTANTINO ([id number])[facility] [place] ([facility])[address] MCHC 29.9 % Low 30.5-36.0 [facility] Comment on above: Performed By: #### L [id number] ####Loan Review Analyst: FENG COLEGEORGE ([id number])[facility] ([facility])[address] MCV (RBC) [Entitic vol] 99.3 fL High 77.0-99.0 [facility] Comment on above: Performed By: #### L [id number] ####Loan Review Analyst: FENG DOUGIE ([id number])[facility] ([facility])[address] Monocytes (Bld) [#/Vol] 1.4 10*3/uL High 0.0-0.9 [facility] Comment on above: Performed By: #### L [id number] ####Loan Review Analyst: FENG CONSTANTINO ([id number])[facility] ([facility])[address] Monocytes/100 WBC (Bld) 16.9 % High 5.0-13.0 [facility] Comment on above: Performed By: #### L [id number] ####Loan Review Analyst: FENG CONSTANTINO ([id number])[facility] [place] ([facility])[address] NEUTROPHILS ABSOLUTE 5.2 10*3/uL Normal 1.8-7.5 [facility] Comment on above: Performed By: #### L [id number] ####Loan Review Analyst: FENG CONSTANTINO ([id number])[facility] [place] ([facility])[address] Neutrophils/100 WBC (Bld) 64.6 % Normal 38.0-82.0 [facility] Comment on above: Performed By: #### L [id number] ####Loan Review Analyst: FENG CONSTANTINO ([id number])[facility] [place] ([facility])[address] NRBC 0.0 /100 WBCs Normal 0.0-2.0 [facility] Comment on above: Performed By: #### L [id number] ####Loan Review Analyst: FENG CONSTANTINO ([id number])[facility] [place] ([facility])[address] Platelet mean volume (Bld) [Entitic vol] 9.2 fL Normal 9.0-12.7 [facility] Comment on above: Performed By: #### L [id number] ####Loan Review Analyst: FENG CONSTANTINO ([id number])[facility] [place] ([facility])[address] Platelets (Bld) [#/Vol] 392 10*3/uL Normal 140-440 [facility] Comment on above: Performed By: #### L [id number] ####Loan Review Analyst: FENG CONSTANTINO ([id number])[facility] [place] ([facility])[address] RBC (Bld) [#/Vol] 2.86 10*6/uL Low 4.40-5.90 [facility] Comment on above: Performed By: #### L [id number] ####Loan Review Analyst: FENG CONSTANTINO ([id number])[facility] ([facility])[address] WBC (Bld) [#/Vol] 8.0 10*3/uL Normal 3.6-10.7 [facility] Comment on above: Performed By: #### L [id number] ####Loan Review Analyst: FENG CONSTANTINO ([id number])[facility] ([facility])[address] [place] [address] COMPREHENSIVE METABOLIC PANE Victor M 03-13-2025 Albumin [Mass/Vol] 1.5 g/dL Low 3.5-5.0 [facility] Comment on above: Performed By: #### L AB17 ####Loan Review Analyst: FENG CONSTANTINO ([id number])[facility] ([facility])[address] ALP [Catalytic activity/Vol] 122 U/L Normal 40-150 [facility] Comment on above: Performed By: #### L AB17 ####Loan Review Analyst: FENG CONSTANTINO ([id number])[facility] ([facility])[address] ALT [Catalytic activity/Vol] 7 U/L Normal <40 [facility] Comment on above: Performed By: #### L AB17 ####Loan Review Analyst: FENG CONSTANTINO ([id number])[facility] ([facility])[address] Anion gap [Moles/Vol] 6 mmol/L Normal 3-13 [facility] Comment on above: Performed By: #### L AB17 ####Loan Review Analyst: FENG CONSTANTINO ([id number])[facility] ([facility])[address] AST [Catalytic activity/Vol] 37 U/L High <34 [facility] Comment on above: Performed By: #### L AB17 ####Loan Review Analyst: FENG CONSTANTINO ([id number])[facility] ([facility])[address] Bilirubin [Mass/Vol] 0.5 mg/dL Normal <1.2 [facility] Comment on above: Performed By: #### L AB17 ####Loan Review Analyst: FENG CONSTANTINO ([id number])[facility] [place] ([facility])[address] Calcium [Mass/Vol] 7.3 mg/dL Low 8.4-10.2 [facility] Comment on above: Performed By: #### L AB17 ####Loan Review Analyst: FENG CONSTANTINO ([id number])[facility] [place] ([facility])[address] Chloride [Moles/Vol] 110 mmol/L High 98-107 [facility] Comment on above: Performed By: #### L AB17 ####Loan Review Analyst: FENG CONSTANTINO ([id number])[facility] [place] ([facility])[address] CO2 [Moles/Vol] 25 mmol/L Normal 22-29 [facility] Comment on above: Performed By: #### L AB17 ####Loan Review Analyst: FENG CONSTANTINO ([id number])[facility] [place] ([facility])[address] Creatinine [Mass/Vol] 3.32 mg/dL High 0.72-1.25 [facility] Comment on above: Performed By: #### L AB17 ####Loan Review Analyst: FENG CONSTANTINO ([id number])[facility] [place] ([facility])[address] GLOMERULAR FILTRATION RATE ML/MIN/1.73 SQ M.PREDICTED 20.5 mL/min/1.73m*2 Low >60.0 [facility] Comment on above: Result Comment: Calc ulation based on the Chronic Kidney Disease Epidemiology Collaboration (CKD-EPI) equation refit without adjustment for race Performed By: #### L AB17 ####Loan Review Analyst: FENG CONSTANTINO ([id number])[facility] Glucose [Mass/Vol] 71 mg/dL Low 74-100 [facility] Comment on above: Performed By: #### L AB17 ####Loan Review Analyst: FENG CONSTANTINO ([id number])[facility] ([facility])[address] Potassium [Moles/Vol] 3.5 mmol/L Normal 3.5-5.1 [facility] Comment on above: Result Comment: [facility] potassium values may be up to 0.5 mmol/L lower than serum values. Performed By: #### L AB17 ####Loan Review Analyst: FENG CONSTANTINO ([id number])[facility])[address] Protein [Mass/Vol] 5.5 g/dL Low 6.4-8.3 [facility] Comment on above: Performed By: #### L AB17 ####Loan Review Analyst: FENG CONSTANTINO ([id number])[facility] ([facility])[address] Sodium [Moles/Vol] 141 mmol/L Normal 136-145 [facility] Comment on above: Performed By: #### L AB17 ####Loan Review Analyst: FENG CONSTANTINO ([id number])[facility])[address] Urea nitrogen [Mass/Vol] 41 mg/dL High 9-23 [facility] Comment on above: Performed By: #### L AB17 ####Loan Review Analyst: FENG [id number])[facility] ([facility])[address] [place] [address] CT CHEST WO IV CONTRASTon CT CHEST WO IV CONTRAST Normal [facility] CT Chest WO contraston 03-13 1. Congestive [...] Electronically Signed Date/Time: 03/13/2025 12:44 PM EDT [employer] [facility] Patient Name: JUN SNYDER : 1965 [...] fracture or destructive osseous lesion is identified. [facility] Bettye Ribera MD - 03/13/2025 Patient Name: JUN SNYDER : 1965 [facility]#: [id number] Exam Date/Time: 03/13/2025 11:06 Procedure: CT CHEST [...] Electronically Signed Date/Time: 03/13/2025 12:44 PM EDT [facility] Radiology Study observation (narrative) [facility] Comprehensive Metabolic Prof il 03-13-2025 Bilirubin [Mass/Vol] 0.62 mg/dL Normal 0.00-1.30 [facility] Comment on above: Order Comment: 413.2 Performed By: #### L 551.8882, L100.0100, L300.3900 #### [facility] [address] [place], [address] Comprehensive metabolic 1998 panelon 03-13-2025 Albumin [Mass/Vol] 1.5 g/dL Low 3.5 - 5.0 g/dL [facility] ALP [Catalytic activity/Vol] 122 U/L 40 - 150 U/L [facility] ALT [Catalytic activity/Vol] 7 U/L NINF - 40 U/L [facility] Anion gap [Moles/Vol] 6 mmol/L 3 - 13 mmol/L [facility] AST [Catalytic activity/Vol] 37 U/L High NINF - 34 U/L [facility] Bilirubin [Mass/Vol] 0.5 mg/dL NINF - 1.2 mg/dL [facility] Calcium [Mass/Vol] 7.3 mg/dL Low 8.4 - 10. 2 mg/dL [facility] Chloride [Moles/Vol] 110 mmol/L High 98 - 10 7 mmol/L [facility] CO2 [Moles/Vol] 25 mmol/L 22 - 29 mmol/L [facility] Creatinine [Mass/Vol] 3.32 mg/dL High 0.72 - 1.25 mg/dL [facility] GFR/1.73 sq M.predicted (S/P/Bld) [Vol rate/Area] 20.5 mL/min Low - PINF [facility] Comment on above: Calculation based on the Chronic Kidney Disease Epidemiology Collaboration (CKD-EPI) equation refit without adjustment for race Glucose [Mass/Vol] 71 mg/dL Low 74 - 100 mg/dL [facility] Interpretation and review of laboratory results Abnormal [facility] Potassium [Moles/Vol] 3.5 mmol/L 3.5 - 5.1 mmol/L [facility] Comment on above: Plasma potassium macey ues may be up to 0.5 mmol/L lower than serum values. Protein [Mass/Vol] 5.5 g/dL Low 6.4 - 8.3 g/dL [facility] Sodium [Moles/Vol] 141 mmol/L 136 - 145 mmol/L [facility] Urea nitrogen [Mass/Vol] 41 mg/dL High 9 - 23 mg/d L [facility] ECG 12-LEADon 03-13-2025 ECG 12-LEAD Normal [facility] ED Nursing Noteon 03-13-2025 ED Nursing Note When this RN came back from lunch Pt was already taken to [facility] by Consuelo Day. RN covering my lunch called report to RN at [facility]. Normal [facility] ED Nursing Note Called report to SWEETIE Linder at 5W. Normal [facility] ED Nursing Note Consuelo Johnson at bedside to transport patient to [facility]. Normal [facility] ED Provider Noteon ED Provider Note Normal [facility] HIGH SENSITIVITY TROPONIN, S ERIAL BASELINEon 03-13-2025 TROPONIN HS SERIAL BASELINE 39 ng/L High <=35 [facility] Comment on above: Result Comment: In i ndividuals presenting with symptoms > 2h, a baseline troponin <= 5 ng/L suggests acutecardiac injury is unlikely and further serial testing is generally not indicated. Performed By: #### L [id number] ####Loan Review Analyst: FENG CONSTANTINO ([id number])[facility] [place] ([facility])[address] [place] [address] HIGH SENSITIVITY TROPONIN, S ERIAL, SECOND TESTon 03-13-2025 2H TROPONIN HS (SERIAL 2ND TROPONIN) 44 ng/L High <=35 [facility] Comment on above: Result Comment: 2h [...] 3rd serial troponin Performed By: #### L [id number], [id number], [id number] ####Loan Review Analyst: DOMENICA JARA ([id number])[facility] [facility] ([facility])[address] [place] [address] HIGH SENSITIVITY TROPONIN, S ERIAL, THIRD TESTon 03-13-2025 4H TROPONIN HS (SERIAL 3RD TROPONIN) 50 ng/L High <=35 [facility] Comment on above: Result Comment: 4h t roponin (3rd troponin) samples collected between 1h 40 min and 2h and 20 min of the 2h troponin collection time can be utilized to interpret delta troponins as per [facility] algorithms. Samples collected outside this timeframe need to be interpreted clinically.Rising or falling troponin delta between 2 ??? 15 ng/L as compared to 2h troponin valuerequires further evaluation. Performed By: #### L [id number] ####Loan Review Analyst: DOMENICA JARA ([id number])[address] Laboratory - Chemistry and C hemistry - challengeon 03-13-2025 TSH Qn 6.88 m[IU]/L High [facility] Laboratory - Chemistry and C hemistry - challengeOrdered By: Miya Ang on 03-13-2025 Base excess Calc (BldV) [Moles/Vol] 2.2 mmol/L -3.0 - 3.0 mmol/L [facility] CO2 (BldV) [Partial pressure] 45.6 mm[Hg] [facility] CO2 [Moles/Vol] 28.9 mmol/L 23.0 - 30.0 mmol/L [facility] HCO3 (Bld) [Moles/Vol] 27.5 mmol/L 21.0 - 30.0 mmol/L [facility] Oxygen (BldV) [Partial pressure] 33.5 mm[Hg] mm Hg [facility] pH (BldV) 7.398 [pH] 7.320 - 7.420 [facility] Laboratory - Coagulationon 0 03-13-2025 PT Coag (Bld) [Time] 17.7 s High 9.0 - 12.0 s [facility] Laboratory - Hematology and Cell countsOrdered By: Miya Ang on 03-13-2025 Hemoglobin (Bld) [Mass/Vol] 11.8 g/dL Low 13.5 - 17.5 g/dl [facility] Laboratory - Microbiology an d Antimicrobial susceptibilityon 03-13-2025 FLUAV RNA EMMANUEL+probe Ql (Resp) Not detected Not Detected [facility] FLUBV RNA EMMANUEL+probe Ql (Resp) Not detected Not Detected [facility] RSV RNA EMMANUEL+probe Ql (Resp) Not detected Not Detected [facility] SARS-CoV-2 (COVID-19) RNA EMMANUEL+probe Ql (Resp) Not detected Not Detected [facility] SARS-CoV-2 (COVID-19) RNA EMMANUEL+probe Ql (Unsp spec) Methodology: real-time, RT-PCR The SARS-CoV-2, Flu A/B, and RSV Combo assay is intended for in vitro diagnostic use under the FDA Emergency Use Authorization (EUA). This test has not been FDA cleared or approved. In compliance with this authorization, please visit www.fda.gov/media/ 865/download or www.fda.gov/media/ 160/download to access the applicable information sheets. [facility] NT PRO BNPon 03-13-2025 NT PRO BNP >82698 High <125 [facility] Comment on above: Performed By: #### L [id number], [id number], [id number] ####Loan Review Analyst: DOMENICA JARA ([id number])[facility] ([facility])[address] [place] [address] Natriuretic peptide B [Mass/ Vol]on 03-13-2025 Interpretation and review of laboratory results Abnormal [facility] Natriuretic peptide B (Bld) [Mass/Vol] pg/mL High NINF - 125 pg/mL [facility] No Panel Informationon 03-13 4h Troponin HS (Serial 3rd Troponin) 50 ng/L High NINF - 35 ng/L [facility] Comment on above: 4h troponin (3rd [...] and review of laboratory results Abnormal [facility] 2h Troponin HS (Serial 2nd Troponin) 44 ng/L High NINF - 35 ng/L [facility] Comment on above: 2h troponin (2nd [...] and review of laboratory results Abnormal [facility] Interpretation and review of laboratory results Abnormal [facility] Troponin HS Serial Baseline 39 ng/L High NINF - 35 ng/L [facility] Comment on above: In individuals prese nting with symptoms > 2h, a baseline troponin <= 5 ng/L suggests acute cardiac injury is unlikely and further serial testing is generally not indicated. [facility] P Vandiver [address] [facility] CO Interval [address] [facility] QRS Vandiver [address] [facility] QRSD Interval 113 ms [facility] QT Interval [address] [facility] QTC Interval [address] [facility] T Wave Vandiver [address] [facility] Atrial flutter with predominant 2:1 AV [...] On 03-13-2025 08:47:27 EDT by Keiry Solares [facility] No Panel InformationOrdered By: Miya Ang on 03-13-2025 Amount Of Oxygen [facility] Interpretation and review of laboratory results Abnormal [facility] Source Of Oxygen Nasal Cannula (LPM) [facility] Assessment of oxygenation is best done with an arterial blood gas determination. Reference ranges for pO2, bicarbonate, and base excess are for mixed venous blood. Specimens drawn from a peripheral vein will often have higher values. [facility] Nursing Noteon 03-13-2025 Nursing Note Removed wound vac that patient arrived to [facility] pictures of all wound taken on rover and saved to chart NSWto DSD applied to sacral wound Normal [facility] PROTHROMBIN TIMEon INR Coag (PPP) [Relative time] 1.7 {INR} High 0.9-1.1 [facility] Comment on above: Result Comment: Vaughn [...] Myocardial Infarction Performed By: #### L [id number] ####Loan Review Analyst: FEGN CONSTANTINO ([id number])[facility] ([facility])[address] [place] [address] PT Coag (PPP) [Time] 17.7 s High 9.0-12.0 [facility] Comment on above: Performed By: #### L [id number] ####Loan Review Analyst: FENG CONSTANTINO ([id number])[facility] ([facility])[address] [place] [address] PT Coag (Bld) [Time]on 03-13 INR Coag (PPP) [Relative time] 1.7 {INR} High 0.9 - 1.1 [facility] Comment on above: Recommended Anticoag ulant [...] and review of laboratory results Abnormal [facility] SARS-COV-2, FLU A/B, AND RSV COMBOon 03-13-2025 SARS-CoV-2 (COVID-19) RNA EMMANUEL+probe Ql (Unsp spec) Normal [facility] Comment on above: Performed By: #### L [id number] ####Loan Review Analyst: FENG CONSTANTINO ([id number])[facility] ([facility])[address] [place] [address] SARS-CoV-2, Flu A/B, and RSV Comboon 03-13-2025 Interpretation and review of laboratory results Normal [facility] THYROID STIMULATING HORMONEo n 03-13-2025 THYROID STIMULATING HORMONE 6.88 uIU/mL High 0.35-4.94 [facility] Comment on above: Performed By: #### L [id number], [id number], [id number] ####Loan Review Analyst: DOMENICA JARA ([id number])[facility] ([facility])[address] [place] [address] TSH Qnon 03-13-2025 Interpretation and review of laboratory results Abnormal [facility] Vital signsOrdered By: Delicia Ang on 03-13-2025 Oxygen saturation in Venous blood 57.2 % [facility] Vital signson 03-13-2025 Heart rate 117 /min bpm [facility] XR Chest Single viewon 03-13 1. Limited supine study. 2. Cardiomegaly with probable pulmonary venous congestion. 3. Hyperinflated lungs with chronic, ill-defined opacities in both lungs which are most likely areas of fibrosis. No definite lung consolidation. Report Dictated on Electronically Signed By: Bettye Ribera MD Electronically Signed Date/Time: 03/13/2025 9:18 AM [facility] [employer] [facility] 1965 [id number] Exam Date/Time: 03/13/2025 09:06 Procedure: XR CHEST [...] Biapical pleural thickening is chronic. Bones: Unremarkable [facility] Bettye Ribera MD - 03/13/2025 [facility] Name: [facility]UN [facility] 1965 [id number] Exam Date/Time: 03/13/2025 09:06 Procedure: XR CHEST [...] Electronically Signed Date/Time: 03/13/2025 9:[address] [facility] Radiology Study observation (narrative) [facility] XR Chest Single viewOrdered By: Bettye Ribera on 03-13-2025 [facility] [employer] Work Phone: Absolute lymphocyte countOrd ered By: Jayesh Stubbs on 03-12-2025 Lymphocytes Auto (Unsp spec) [#/Vol] 1.12 10*3/uL 0.83-4.51 [facility] Absolute neutrophil countOrd ered By: Jayesh Stubbs on 03-12-2025 Neutrophils (Bld) [#/Vol] 4.3 10*3/uL 2.0-7.7 [facility] Anion gap in Serum or Plasma Ordered By: Jayesh Stubbs on 03-12-2025 Anion gap [Moles/Vol] 13 mmol/L 5-15 [facility] Automated lymphocyte count a s percentage of total leukocytesOrdered By: Jayesh Stubbs on 03-12-2025 Lymphocytes/100 WBC Auto (Unsp spec) 16.9 % Low 19-41 [facility] BUN/creatinine ratioOrdered By: Jayesh Stubbs on 03-12-2025 Urea nitrogen/Creatinine [Mass ratio] 11.8 mg/mg 10-20 [facility] Basophil percentageOrdered B y: Jayesh Stubbs on 03-12-2025 Basophils/100 WBC (Bld) 2.0 % High 0-1 [facility] Bilirubin, totalOrdered By: Jayesh Stubbs on 03-12-2025 Bilirubin [Mass/Vol] 0.62 mg/dL 0.00-1.30 [facility] CBC W/Diff, Automatedon 02-25 Anisocytosis Ql (Bld) 1+ Normal [facility] Comment on above: Order Comment: 413.2 Performed By: #### L 500.4050, L100.0100, L300.3900 #### [facility] [address] [place], [address] Carbon dioxide, total [Moles /volume] in Central venous bloodOrdered By: Jayesh Stubbs on 03-12-2025 CO2 [Moles/Vol] 27.8 mmol/L 21.0-32.0 [facility] Chloride assayOrdered By: George Dorado on 03-12-2025 Chloride [Moles/Vol] 98 mmol/L 98-108 [facility] Eosinophil percentageOrdered By: Jayesh Stubbs on 03-12-2025 Eosinophils/100 WBC (Bld) 2.3 % 0-5 [facility] Erythrocyte distribution wid th ratioOrdered By: Jayesh Stubbs on 03-12-2025 Erythrocyte distribution width (RBC) [Ratio] 21.6 % High 11.6-14.6 [facility] Erythrocyte distribution wid th standard deviationOrdered By: Jayesh Stubbs on 03-12-2025 Erythrocyte distribution width (RBC) [Ratio] 79.4 fl High 35.1-43.9 [facility] Glomerular filtration rate ( GFR) estimation/1.73 sq m using serum, plasma, or whole bOrdered By: Jayesh Stubbs on 03-12-2025 GFR/1.73 sq M.predicted among non-blacks MDRD (S/P/Bld) [Vol rate/Area] 14 mL/min/{1.73_m2} Low >60 [facility] Comment on above: mL/min/1.73m2 CKD-EP I Creatinine Equation (2020) Hematocrit Auto (Bld) [Volum e fraction]Ordered By: Jayesh Stubbs on 03-12-2025 Hematocrit (Bld) [Volume fraction] 28.7 % Low 40-54 [facility] Hemoglobin measurementOrdere d By: Jayesh Stubbs on 03-12-2025 Hemoglobin (Bld) [Mass/Vol] 8.7 g/dL Low 13.0-16.5 [facility] Immature granulocytes/100 WB C Auto (Bld)Ordered By: Jayesh Stubbs on 03-12-2025 Immature granulocytes/100 WBC (Bld) 0.300 % 0.0-0.9 [facility] Comment on above: IG% - Immature Granu locytes (promyelocytes, myelocytes and metamyelocytes) > 1% indicates that a LEFT SHIFT is Present. International normalized rat io (INR) calculationOrdered By: Jayesh Stubbs on 03-12-2025 INR Coag (Bld) [Relative time] 1.9 {INR} [facility] - Chemistry and C hemistry - challengeOrdered By: Jayesh Stubbs on 03-12-2025 AST [Catalytic activity/Vol] 47 U/L High <38 [facility] - Hematology and Cell countsOrdered By: Jayesh Stubbs on 03-12-2025 Anisocytosis Ql (Bld) 1+ [facility] MCV (mean corpuscular volume ) determinationOrdered By: Jayesh Stubbs on 03-12-2025 MCV (RBC) [Entitic vol] 100.3 fL High 80-94 [facility] Mean corpuscular hemoglobin (MCH) determinationOrdered By: Jayesh Stubbs on 03-12-2025 MCH (RBC) [Entitic mass] 30.4 pg 27.0-32.0 [facility] Mean corpuscular hemoglobin concentration (MCHC) determinationOrdered By: Jayesh Stubbs on 03-12-2025 MCHC (RBC) [Mass/Vol] 30.3 g/dL Low 32-36 [facility] Mean platelet volume determi nationOrdered By: Jayesh Stubbs on 03-12-2025 Platelet mean volume (Bld) [Entitic vol] 9.5 fL 6.2-12.0 [facility] Monocyte percentageOrdered B y: Jayesh Stubbs on 03-12-2025 Monocytes/100 WBC (Bld) 14.2 % High 0-10 [facility] Neutrophil percentageOrdered By: Jayesh Stubbs on 03-12-2025 Neutrophils/100 WBC (Bld) 64.3 % 47-70 [facility] Nucleated red blood cell per centageOrdered By: Jayesh Stubbs on 03-12-2025 Nucleated RBC/100 WBC (Bld) [Ratio] 0.3 % 0-5 [facility] Platelet countOrdered By: George Dorado on 03-12-2025 Platelets (Bld) [#/Vol] 404 10*3/uL 150-450 [facility] Potassium measurement (mass/ volume)Ordered By: Jayesh Stubbs on 03-12-2025 Potassium (Unsp spec) [Mass/Vol] 4.1 mmol/L 3.3-5.1 [facility] Prothrombin Time w/INRon INR Coag (PPP) [Relative time] 1.9 {INR} Normal [facility] Comment on above: Order Comment: 413.2 Performed By: #### L 500.4050, L100.0100, L300.3900 #### [facility] [address] [place], [place], [id number] PT Coag (PPP) [Time] 22.4 s High 11.7-14.9 [facility] Comment on above: Order Comment: 413.2 Performed By: #### L 500.4050, L100.0100, L300.3900 #### [facility] [address] [place], [address] Prothrombin timeOrdered By: Jayesh Stubbs on 03-12-2025 PT Coag (PPP) [Time] 22.4 s High 11.7-14.9 [facility] RBC Auto (Bld) [#/Vol]Ordere d By: Jayesh Stubbs on 03-12-2025 RBC (Bld) [#/Vol] 2.86 10*6/uL Low 4.6-6.2 [facility] Serum creatinine measurement (mass/volume)Ordered By: Jayesh Stubbs on 03-12-2025 Creatinine [Mass/Vol] 4.67 mg/dL High 0.70-1.20 [facility] Serum globulin measurementOr dered By: Jayesh Stubbs on 03-12-2025 Globulin (S) [Mass/Vol] 4.1 g/dL 2.2-4.2 [facility] Serum glucose measurement (m ass/volume)Ordered By: Jayesh Stubbs on 03-12-2025 Glucose [Mass/Vol] 102 mg/dL High 70-99 [facility] Serum or plasma alanine mayorga otransferase (ALT) measurementOrdered By: Jayesh Stubbs on 03-12-2025 ALT [Catalytic activity/Vol] 20 U/L <47 [facility] Serum or plasma albumin audrey urement (mass/volume)Ordered By: Jayesh Stubbs on 03-12-2025 Albumin [Mass/Vol] 3.0 g/dL Low 3.5-5.0 [facility] Serum or plasma albumin/glob ulin mass ratioOrdered By: Jayesh Stubbs on 03-12-2025 Albumin/Globulin [Mass ratio] 0.7 {ratio} Low 0.9-2.4 [facility] Serum or plasma alkaline jacob sphatase measurementOrdered By: Jayesh Stubbs on 03-12-2025 ALP [Catalytic activity/Vol] 171 U/L High 40-129 [facility] Serum or plasma calcium audrey urement (mass/volume)Ordered By: Jayesh Stubbs on 03-12-2025 Calcium [Mass/Vol] 9.9 mg/dL 7.6-11.0 [facility] Serum or plasma urea nitroge n measurement (mass/volume)Ordered By: Jayesh Stubbs on 03-12-2025 Urea nitrogen [Mass/Vol] 55 mg/dL High 4-19 [facility] Sodium levelOrdered By: George Stubbs on 03-12-2025 Sodium [Moles/Vol] 139 mmol/L 133-145 [facility] Total proteinOrdered By: Sonia Stubbs on 03-12-2025 Protein [Mass/Vol] 7.1 g/dL 5.9-8.4 [facility] White blood cell (WBC) count Ordered By: Jayesh Stubbs on 03-12-2025 WBC (Bld) [#/Vol] 6.6 10*3/uL 4.4-11.0 [facility] Potassiumon 03-09-2025 Potassium [Moles/Vol] 4.1 mmol/L Normal 3.3-5.1 [facility] Comment on above: Order Comment: 413-2 Performed By: #### L [id number] #### [facility] [address] [place], [address] Potassium measurement (mass/ volume)Ordered By: Jayesh Stubbs on 03-09-2025 Potassium (Unsp spec) [Mass/Vol] 4.1 mmol/L 3.3-5.1 [facility] 36on 03-08-2025 36 2nd attempt called and spoke to the Alyssa the Nurse for the patient at the facility he lives at. She states Sabino is the person who schedules the appointments and she is on vacation and wont be back till next Wednesday. I will try again next wednesday [facility] Progress Noteon 03-08-[address] [facility] 36on 03-06-2025 36 Pt DC to [facility] [id number] 03-05-2025 [id number] [facility] [id number] Auth is now pending with [facility] for [facility]. Auth ID: [id number] . The insurance needs PT and OT notes- as PT note yesterday incomplete , they are both requested . [facility] [id number] [facility] [id number] Discharge med list transmitted to [facility] via [facility] per TCC request. [facility] [id number] [facility] [id number] [facility] APTTon 03-05-2025 aPTT Coag (Bld) [Time] 37.6 s High 20.0-30.5 [facility] Comment on above: Result Comment: ARPAN [facility] COMMENTS:NOTE: The therapeutic time for Heparin anticoagulation, based on Xa activity inhibition, is an APTT of 46-80 seconds. Performed By: #### L [id number], [id number] ####Loan Review Analyst: DOMENICA JARA ([id number])[facility] ([facility])[address] [place] [address] BASIC METABOLIC PANELon 06 Anion gap [Moles/Vol] 8 mmol/L Normal 3-13 [facility] Comment on above: Performed By: #### L AB15 ####Loan Review Analyst: DOMENICA JARA ([id number])[facility] ([facility])[address] [place] [address] Calcium [Mass/Vol] 9.7 mg/dL Normal 8.4-10.2 [facility] Comment on above: Performed By: #### L AB15 ####Loan Review Analyst: DOMENICA JARA ([id number])[facility] ([facility])[address] [place] [address] [place] Chloride [Moles/Vol] 102 mmol/L Normal 98-107 [facility] Comment on above: Performed By: #### L AB15 ####Loan Review Analyst: DOMENICA JARA ([id number])[facility] ([facility])[address] [place] [address] CO2 [Moles/Vol] 26 mmol/L Normal 22-29 [facility] Comment on above: Performed By: #### L AB15 ####Loan Review Analyst: DOMENICA JARA ([id number])[facility] ([facility])[address] [place] [address] Creatinine [Mass/Vol] 3.10 mg/dL High 0.72-1.25 [facility] Comment on above: Performed By: #### L AB15 ####Loan Review Analyst: DOMENICA JARA ([id number])[facility])[address] [place] [address] GLOMERULAR FILTRATION RATE ML/MIN/1.73 SQ M.PREDICTED 22.3 mL/min/1.73m*2 Low >60.0 [facility] Comment on above: Result Comment: Calc ulation based on the Chronic Kidney Disease Epidemiology Collaboration (CKD-EPI) equation refit without adjustment for race Performed By: #### L AB15 ####Loan Review Analyst: DOMENICA JARA ([id number])[address] Glucose [Mass/Vol] 68 mg/dL Low 74-100 [facility] Comment on above: Performed By: #### L AB15 ####Loan Review Analyst: DOMENICA JARA ([id number])[address] Potassium [Moles/Vol] 5.9 mmol/L High 3.5-5.1 [facility] Comment on above: Result Comment: [facility] potassium values may be up to 0.5 mmol/L lower than serum values. Performed By: #### L AB15 ####Loan Review Analyst: DOMENICA JARA ([id number])[facility])[address] [place] [address] Sodium [Moles/Vol] 136 mmol/L Normal 136-145 [facility] Comment on above: Performed By: #### L AB15 ####Loan Review Analyst: DOMENICA JARA ([id number])[place] [address] [place] Urea nitrogen [Mass/Vol] 27 mg/dL High 9-23 [facility] Comment on above: Performed By: #### L AB15 ####Loan Review Analyst: DOMENICA [id number])[facility] ([facility])[address] [place] [address] Anion gap [Moles/Vol] 9 mmol/L Normal 3-13 [facility] Comment on above: Performed By: #### L AB15 ####Loan Review Analyst: DOMENICA JARA ([id number])[facility] [place] [address] Calcium [Mass/Vol] 9.7 mg/dL Normal 8.4-10.2 [facility] Comment on above: Performed By: #### L AB15 ####Loan Review Analyst: DOMENICA JARA ([id number])[facility] [place] [address] Chloride [Moles/Vol] 102 mmol/L Normal 98-107 [facility] Comment on above: Performed By: #### L AB15 ####Loan Review Analyst: DOMENICA JARA ([id number])[facility] [place] [address] CO2 [Moles/Vol] 25 mmol/L Normal 22-29 [facility] Comment on above: Performed By: #### L AB15 ####Loan Review Analyst: DOMENICA JARA ([id number])[facility] ([facility] [place] [address] Creatinine [Mass/Vol] 3.03 mg/dL High 0.72-1.25 [facility] Comment on above: Performed By: #### L AB15 ####Loan Review Analyst: DOMENICA JARA ([id number])[facility])[address] [place] [address] GLOMERULAR FILTRATION RATE ML/MIN/1.73 SQ M.PREDICTED 22.9 mL/min/1.73m*2 Low >60.0 [facility] Comment on above: Result Comment: Calc ulation based on the Chronic Kidney Disease Epidemiology Collaboration (CKD-EPI) equation refit without adjustment for race Performed By: #### L AB15 ####Loan Review Analyst: DOMENICA JARA ([id number])[facility] ([facility] [place] [address] Glucose [Mass/Vol] 77 mg/dL Normal 74-100 [facility] Comment on above: Performed By: #### L AB15 ####Loan Review Analyst: DOMENICA JARA ([id number])[facility])[address] [place] [address] Potassium [Moles/Vol] 6.6 mmol/L Critically high 3.5-5.1 [facility] Comment on above: Result Comment: [facility] potassium values may be up to 0.5 mmol/L lower than serum values. Performed By: #### L AB15 ####Loan Review Analyst: DOMENICA JARA ([id number])[facility] ([facility])[address] [place] [address] Sodium [Moles/Vol] 136 mmol/L Normal 136-145 [facility] Comment on above: Performed By: #### L AB15 ####Loan Review Analyst: DOMENICA JARA ([id number])[facility] ([facility])[address] [place] [address] Urea nitrogen [Mass/Vol] 26 mg/dL High 9-23 [facility] Comment on above: Performed By: #### L AB15 ####Loan Review Analyst: DOMENICA JARA ([id number])[facility])[address] [place] [address] Basic metabolic 1998 panelon 03-05-2025 Anion gap [Moles/Vol] 8 mmol/L 3 - 13 mmol/L [facility] Calcium [Mass/Vol] 9.7 mg/dL 8.4 - 10. 2 mg/dL [facility] Chloride [Moles/Vol] 102 mmol/L 98 - 10 7 mmol/L [facility] CO2 [Moles/Vol] 26 mmol/L 22 - 29 mmol/L [facility] Creatinine [Mass/Vol] 3.1 mg/dL High 0.72 - 1.25 mg/dL [facility] GFR/1.73 sq M.predicted (S/P/Bld) [Vol rate/Area] 22.3 mL/min Low - PINF [facility] Glucose [Mass/Vol] 68 mg/dL Low 74 - 100 mg/dL [facility] Interpretation and review of laboratory results Abnormal [facility] Potassium [Moles/Vol] 5.9 mmol/L High 3.5 - 5.1 mmol/L [facility] Sodium [Moles/Vol] 136 mmol/L 136 - 145 mmol/L [facility] Urea nitrogen [Mass/Vol] 27 mg/dL High 9 - 23 mg/d L [facility] Anion gap [Moles/Vol] 9 mmol/L 3 - 13 mmol/L [facility] Calcium [Mass/Vol] 9.7 mg/dL 8.4 - 10. 2 mg/dL [facility] Chloride [Moles/Vol] 102 mmol/L 98 - 10 7 mmol/L [facility] [facility] CO2 [Moles/Vol] 25 mmol/L 22 - 29 mmol/L [facility] Creatinine [Mass/Vol] 3.03 mg/dL High 0.72 - 1.25 mg/dL [facility] GFR/1.73 sq M.predicted (S/P/Bld) [Vol rate/Area] 22.9 mL/min Low - PINF [facility] Glucose [Mass/Vol] 77 mg/dL 74 - 100 mg/dL [facility] Interpretation and review of laboratory results Abnormal [facility] Potassium [Moles/Vol] 6.6 mmol/L Critically high 3.5 - 5.1 mmol/L [facility] Sodium [Moles/Vol] 136 mmol/L 136 - 145 mmol/L [facility] Urea nitrogen [Mass/Vol] 26 mg/dL High 9 - 23 mg/d L [facility] CBC (HEMOGRAM)on 03-05-2025 Erythrocyte distribution width (RBC) [Ratio] 21.6 % High 11.5-15.0 [facility] Comment on above: Performed By: #### L [id number] ####Loan Review Analyst: DOMENICA JARA ([id number])[address] Hematocrit (Bld) [Volume fraction] 25.7 % Low 40.0-52.0 [facility] Comment on above: Performed By: #### L AB294 ####Loan Review Analyst: DOMENICA JARA ([id number])[facility])[address] [place] [address] Hemoglobin (Bld) [Mass/Vol] 7.7 g/dL Low 13.0-18.0 [facility] Comment on above: Performed By: #### L AB294 ####Loan Review Analyst: DOMENICA JARA ([id number])[facility] ([facility])[address] [place] [address] MCH (RBC) [Entitic mass] 29.7 pg Normal 26.0-34.0 [facility] Comment on above: Performed By: #### L AB294 ####Loan Review Analyst: DOMENICA JARA ([id number])[facility])[address] [place] [address] MCHC 30.0 % Low 30.5-36.0 [facility] Comment on above: Performed By: #### L AB294 ####Loan Review Analyst: DOMENICA JARA ([id number])[facility] ([facility])[address] [place] [address] MCV (RBC) [Entitic vol] 99.2 fL High 77.0-99.0 [facility] Comment on above: Performed By: #### L AB294 ####Loan Review Analyst: DOMENICA JARA ([id number])[facility] ([facility])[address] [place] [address] Platelet mean volume (Bld) [Entitic vol] 9.1 fL Normal 9.0-12.7 [facility] Comment on above: Performed By: #### L AB294 ####Loan Review Analyst: DOMENICA JARA ([phone])[facility] ([facility])[address] [place] [address] Platelets (Bld) [#/Vol] 303 10*3/uL Normal 140-440 [facility] Comment on above: Performed By: #### L AB294 ####Loan Review Analyst: DOMENICA JARA ([id number])[facility])[address] [place] [address] RBC (Bld) [#/Vol] 2.59 10*6/uL Low 4.40-5.90 [facility] Comment on above: Performed By: #### L AB294 ####Loan Review Analyst: DOMENICA JARA ([id number])[facility] ([facility])[address] [place] [address] WBC (Bld) [#/Vol] 9.1 10*3/uL Normal 3.6-10.7 [facility] Comment on above: Performed By: #### L AB294 ####Loan Review Analyst: DOMENICA ASHLEYELIDA ([id number])[facility] [place] [address] CBC W/Diff, Automatedon 06-0 Absolute Neut Normal 2.0-7.7 [facility] Comment on above: Order Comment: 413.2 Result Comment: [facility] Performed By: #### L 300.3900 #### [facility] [address] [place], [address] HCT Normal 40-54 [facility] Comment on above: Order Comment: 413.2 Result Comment: [facility] Performed By: #### L 300.3900 #### [facility] [address] [place], [address] HGB Normal 13.0-16.5 [facility] Comment on above: Order Comment: 413.2 Result Comment: [facility] Performed By: #### L 300.3900 #### [facility] [address] [place], [address] MCH Normal 27.0-32.0 [facility] Comment on above: Order Comment: 413.2 Result Comment: [facility] Performed By: #### L 300.3900 #### [facility] [address] [place], [address] MCHC Normal 32-36 [facility] Comment on above: Order Comment: 413.2 Result Comment: [facility] Performed By: #### L 300.3900 #### [facility] [address] [place], [address] MCV Normal 80-94 [facility] Comment on above: Order Comment: 413.2 Result Comment: [facility] Performed By: #### L 300.3900 #### [facility] [address] [place], [address] NEUT% Normal 47-70 [facility] Comment on above: Order Comment: 413.2 Result Comment: [facility] Performed By: #### L 300.3900 #### [facility] [address] [place], [address] PLT Normal 150-450 [facility] Comment on above: Order Comment: 413.2 Result Comment: [facility] Performed By: #### L 300.3900 #### [facility] [address] [place], [address] RBC Normal 4.6-6.2 [facility] Comment on above: Order Comment: 413.2 Result Comment: [facility] Performed By: #### L 300.3900 #### [facility] [address] [place], [address] RDW CV Normal 11.6-14.6 [facility] Comment on above: Order Comment: 413.2 Result Comment: [facility] Performed By: #### L 300.3900 #### [facility] [address] [place], [address] RDW SD Normal 35.1-43.9 [facility] Comment on above: Order Comment: 413.2 Result Comment: [facility] Performed By: #### L 300.3900 #### [facility] [address] [place], [address] WBC Normal 4.4-11.0 [facility] Comment on above: Order Comment: 413.2 Result Comment: [facility] Performed By: #### L 300.3900 #### [facility] [address] [place], [place], [address] CBC panel Auto (Bld)on 03-05 Erythrocyte distribution width (RBC) [Ratio] 21.6 % High 11.5 - 15.0 % [facility] Hematocrit (Bld) [Volume fraction] 25.7 % Low 40.0 - 52.0 % [facility] Hemoglobin (Bld) [Mass/Vol] 7.7 g/dL Low 13.0 - 18.0 g/dL [facility] Interpretation and review of laboratory results Abnormal [facility] MCH (RBC) [Entitic mass] 29.7 pg 26. 0 - 34.[address] [facility] MCHC (RBC) [Mass/Vol] 30 % Low 30.5 - 36.0 % [facility] MCV (RBC) [Entitic vol] 99.2 fL High 77.0 - 99.[address] [facility] Platelet mean volume (Bld) [Entitic vol] 9.1 fL 9.0 - 12.[address] [facility] Platelets (Bld) [#/Vol] 303 10*3/uL 140 - 440 10*3/uL [facility] RBC (Bld) [#/Vol] 2.59 10*6/uL Low 4.40 - 5.9 0 10*6/uL [facility] WBC (Bld) [#/Vol] 9.1 10*3/uL 3.6 - 10.7 10*3/uL [facility] Comprehensive Metabolic Prof ilon 03-05-2025 ALB Normal 3.5-5.0 [facility] Comment on above: Order Comment: 413.2 Result Comment: [facility] Performed By: #### L 300.3900 #### [facility] [address] [place] [place], [address] ALK PHOS Normal 40-129 [facility] Comment on above: Order Comment: 413.2 Result Comment: [facility] Performed By: #### L 300.3900 #### [facility] [address] [place] [place], [address] ALT Normal <=46 [facility] Comment on above: Order Comment: 413.2 Result Comment: [facility] Performed By: #### L 300.3900 #### [facility] [address] [place], [address] AST Normal <=37 [facility] Comment on above: Order Comment: 413.2 Result Comment: [facility] Performed By: #### L 300.3900 #### [facility] [address] [place], [address] BUN Normal 4-19 [facility] Comment on above: Order Comment: 413.2 Result Comment: [facility] Performed By: #### L 300.3900 #### [facility] [address] [place], [address] BUN/CRE Normal 10-20 [facility] Comment on above: Order Comment: 413.2 Result Comment: [facility] Performed By: #### L 300.3900 #### [facility] [address] [place], [address] Calcium Normal 7.6-11.0 [facility] Comment on above: Order Comment: 413.2 Result Comment: [facility] Performed By: #### L 300.3900 #### [facility] [address] [place], [address] CL Normal 98-108 [facility] Comment on above: Order Comment: 413.2 Result Comment: [facility] Performed By: #### L 300.3900 #### [facility] [address] [place], [address] CO2 Normal 21.0-32.0 [facility] Comment on above: Order Comment: 413.2 Result Comment: [facility] Performed By: #### L 300.3900 #### [facility] [address] [place], [address] CREAT,SERUM Normal 0.70-1.20 [facility] Comment on above: Order Comment: 413.2 Result Comment: [facility] Performed By: #### L 300.3900 #### [facility] [address] [place], [address] eGFR Normal >60 [facility] Comment on above: Order Comment: 413.2 Result Comment: [facility] Performed By: #### L 300.3900 #### [facility] [address] [place], [address] GAP Normal 5-15 [facility] Comment on above: Order Comment: 413.2 Result Comment: [facility] Performed By: #### L 300.3900 #### [facility] [address] [place], [address] GLU Normal 70-99 [facility] Comment on above: Order Comment: 413.2 Result Comment[facility] Performed By: #### L 300.3900 #### [facility] [address] [place], [address] Potassium Normal 3.3-5.1 [facility] Comment on above: Order Comment: 413.2 Result Comment: [facility] Performed By: #### L 300.3900 #### [facility] [address] [place], [address] T BILI Normal 0.00-1.30 [facility] Comment on above: Order Comment: 413.2 Result Comment: [facility] Performed By: #### L 300.3900 #### [facility] [address] [place], [address] T PROT Normal 5.9-8.4 [facility] Comment on above: Order Comment: 413.2 Result Comment: [facility] Performed By: #### L 300.3900 #### [facility] [address] [place], [address] Comprehensive Metabolic Profil Normal 133-145 [facility] Comment on above: Order Comment: 413.2 Result Comment: [facility] Performed By: #### L 300.3900 #### [facility] [address] [place], [address] Laboratory - Chemistry and C hemistry - challengeon 03-05-2025 Glucose [Mass/Vol] 142 mg/dL High 70 - 100 mg/dL [facility] Glucose [Mass/Vol] 83 mg/dL 70 - 100 mg/dL [facility] - Coagulationon 0 03-05-2025 PT Coag (Bld) [Time] 18.6 s High 9.0 - 12.0 s [facility] No Panel Informationon 03-05 Interpretation and review of laboratory results Abnormal [facility] Interpretation and review of laboratory results Normal [facility] Interpretation and review of laboratory results Abnormal [facility] PROTHROMBIN TIMEon INR Coag (PPP) [Relative time] 1.8 {INR} High 0.9-1.1 [facility] Comment on above: Result Comment: Vaughn [...] Myocardial Infarction Performed By: #### Tameka AB325, [id number] ####Loan Review Analyst: DOMENICA JARA ([id number])[facility])[address] [place] [address] [place] PT Coag (PPP) [Time] 18.6 s High 9.0-12.0 [facility] Comment on above: Performed By: #### Tameka AB325, [id number] ####Loan Review Analyst: DOMENICA JARA ([id number])[facility] ([facility])[address] [place] [address] [place] PT Coag (Bld) [Time]on 03-05 INR Coag (PPP) [Relative time] 1.8 {INR} High 0.9 - 1.1 [facility] Progress Noteon 03-05-2025 Progress Note Normal [facility] Progress Note Normal [facility] Progress Note Normal [facility] Progress Note Normal [facility] Note Normal [facility] Progress Note Normal [facility] Prothrombin Time w/INRon INR Normal [facility] Comment on above: Order Comment: 413.2 Result Comment: [facility] Performed By: #### L 300.3900 #### [facility] [address] [place], [address] PROTIME Normal 11.7-14.9 [facility] Comment on above: Order Comment: 413.2 Result Comment: [facility] Performed By: #### L 300.3900 #### [facility] [address] [place], [address] aPTT Coag (Bld) [Time]on aPTT Coag (PPP) [Time] 37.6 s High 20.0 - 30.5 s [facility] 30on 03-04-2025 30 Normal [facility] [id number] 03-04-2025 [id number] Normal [facility] APTTon 03-04-2025 aPTT Coag (Bld) [Time] 52.2 s High 20.0-30.5 [facility] Comment on above: Result Comment: ARPAN [facility] COMMENTS:NOTE: The therapeutic time for Heparin anticoagulation, based on Xa activity inhibition, is an APTT of 46-80 seconds. Performed By: #### L AB325, [id number] ####Loan Review Analyst: DOMENICA JARA ([phone])[facility] ([address] BASIC METABOLIC PANELon Anion gap [Moles/Vol] 11 mmol/L Normal 3-13 [facility] Comment on above: Performed By: #### L AB15 ####Loan Review Analyst: DOMENICA JARA ([id number])[facility] ([facility])[address] [place] [address] Calcium [Mass/Vol] 9.4 mg/dL Normal 8.4-10.2 [facility] Comment on above: Performed By: #### L AB15 ####Loan Review Analyst: DOMENICA JARA ([id number])[facility] ([facility])[address] [place] [address] [place] Chloride [Moles/Vol] 103 mmol/L Normal 98-107 [facility] Comment on above: Performed By: #### L AB15 ####Loan Review Analyst: DOMENICA JARA ([id number])[facility] ([facility])[address] [place] [address] CO2 [Moles/Vol] 27 mmol/L Normal 22-29 [facility] Comment on above: Performed By: #### L AB15 ####Loan Review Analyst: DOMENICA JARA ([id number])[facility] ([facility])[address] [place] [address] Creatinine [Mass/Vol] 2.41 mg/dL High 0.72-1.25 [facility] Comment on above: Performed By: #### L AB15 ####Loan Review Analyst: DOMENICA JARA ([id number])[facility] ([facility])[address] [place] [address] [place] GLOMERULAR FILTRATION RATE ML/MIN/1.73 SQ M.PREDICTED 30.2 mL/min/1.73m*2 Low >60.0 [facility] Comment on above: Result Comment: Calc ulation based on the Chronic Kidney Disease Epidemiology Collaboration (CKD-EPI) equation refit without adjustment for race Performed By: #### L AB15 ####Loan Review Analyst: DOMENICA JARA ([id number])[facility] ([facility])[address] [place] [address] [place] Glucose [Mass/Vol] 99 mg/dL Normal 74-100 [facility] Comment on above: Performed By: #### L AB15 ####Loan Review Analyst: DOMENICA JARA ([id number])[facility] ([facility])[address] [place] [address] Potassium [Moles/Vol] 5.1 mmol/L Normal 3.5-5.1 [facility] Comment on above: Result Comment: [facility] potassium values may be up to 0.5 mmol/L lower than serum values. Performed By: #### L AB15 ####Loan Review Analyst: DOMENICA JARA ([id number])[facility] ([facility])[address] [place] [address] Sodium [Moles/Vol] 141 mmol/L Normal 136-145 [facility] Comment on above: Performed By: #### L AB15 ####Loan Review Analyst: DOMENICA JARA ([id number])[facility])[address] [place] [address] Urea nitrogen [Mass/Vol] 18 mg/dL Normal 9-23 [facility] Comment on above: Performed By: #### L AB15 ####Loan Review Analyst: DOMENICA JARA ([id number])[facility] ([facility])[address] [place] [address] Basic metabolic 1998 panelon 03-04-2025 Anion gap [Moles/Vol] 11 mmol/L 3 - 13 mmol/L [facility] Calcium [Mass/Vol] 9.4 mg/dL 8.4 - 10. 2 mg/dL [facility] Chloride [Moles/Vol] 103 mmol/L 98 - 10 7 mmol/L [facility] CO2 [Moles/Vol] 27 mmol/L 22 - 29 mmol/L [facility] Creatinine [Mass/Vol] 2.41 mg/dL High 0.72 - 1.25 mg/dL [facility] GFR/1.73 sq M.predicted (S/P/Bld) [Vol rate/Area] 30.2 mL/min Low - PINF [facility] Glucose [Mass/Vol] 99 mg/dL 74 - 100 mg/dL [facility] Interpretation and review of laboratory results Abnormal [facility] Potassium [Moles/Vol] 5.1 mmol/L 3.5 - 5.1 mmol/L [facility] Sodium [Moles/Vol] 141 mmol/L 136 - 145 mmol/L [facility] Urea nitrogen [Mass/Vol] 18 mg/dL 9 - 23 mg/d L [facility] CBC (HEMOGRAM)on 03-04-2025 Erythrocyte distribution width (RBC) [Ratio] 21.4 % High 11.5-15.0 [facility] Comment on above: Performed By: #### L AB294 ####Loan Review Analyst: DOMENICA JARA ([id number])[facility])[address] [place] [address] Hematocrit (Bld) [Volume fraction] 25.9 % Low 40.0-52.0 [facility] Comment on above: Performed By: #### L AB294 ####Loan Review Analyst: DOMENICA JARA ([id number])[address] Hemoglobin (Bld) [Mass/Vol] 7.7 g/dL Low 13.0-18.0 [facility] Comment on above: Performed By: #### L AB294 ####Loan Review Analyst: DOMENICA JARA ([phone])[facility])[address] [place] [address] MCH (RBC) [Entitic mass] 29.3 pg Normal 26.0-34.0 [facility] Comment on above: Performed By: #### L AB294 ####Loan Review Analyst: DOMENICA JARA ([id number])[facility])[address] [place] [address] MCHC 29.7 % Low 30.5-36.0 [facility] Comment on above: Performed By: #### L AB294 ####Loan Review Analyst: DOMENICA JARA ([id number])[facility])[address] [place] [address] MCV (RBC) [Entitic vol] 98.5 fL Normal 77.0-99.0 [facility] Comment on above: Performed By: #### L AB294 ####Loan Review Analyst: DOMENICA JARA ([id number])[facility])[address] [place] [address] Platelet mean volume (Bld) [Entitic vol] 9.3 fL Normal 9.0-12.7 [facility] Comment on above: Performed By: #### L AB294 ####Loan Review Analyst: DOMENICA JARA ([id number])[facility] ([facility])[address] [place] [address] Platelets (Bld) [#/Vol] 324 10*3/uL Normal 140-440 [facility] Comment on above: Performed By: #### L AB294 ####Loan Review Analyst: DOMENICA JARA ([id number])[facility] ([facility])[address] [place] [address] RBC (Bld) [#/Vol] 2.63 10*6/uL Low 4.40-5.90 [facility] Comment on above: Performed By: #### L AB294 ####Loan Review Analyst: DOMENICA JARA ([id number])[facility] ([facility])[address] [place] [address] WBC (Bld) [#/Vol] 7.7 10*3/uL Normal 3.6-10.7 [facility] Comment on above: Performed By: #### L AB294 ####Loan Review Analyst: DOMENICA JARA ([id number])[facility] ([facility])[address] [place] [address] CBC panel Auto (Bld)on 03-04 Erythrocyte distribution width (RBC) [Ratio] 21.4 % High 11.5 - 15.0 % [facility] Hematocrit (Bld) [Volume fraction] 25.9 % Low 40.0 - 52.0 % [facility] Hemoglobin (Bld) [Mass/Vol] 7.7 g/dL Low 13.0 - 18.0 g/dL [facility] Interpretation and review of laboratory results Abnormal [facility] MCH (RBC) [Entitic mass] 29.3 pg 26. 0 - 34.[address] [facility] MCHC (RBC) [Mass/Vol] 29.7 % Low 30.5 - 36.0 % [facility] MCV (RBC) [Entitic vol] 98.5 fL 77.0 - 99.[address] [facility] Platelet mean volume (Bld) [Entitic vol] 9.3 fL 9.0 - 12.[address] [facility] Platelets (Bld) [#/Vol] 324 10*3/uL 140 - 440 10*3/uL [facility] RBC (Bld) [#/Vol] 2.63 10*6/uL Low 4.40 - 5.9 0 10*6/uL [facility] WBC (Bld) [#/Vol] 7.7 10*3/uL 3.6 - 10.7 10*3/uL [facility] - Coagulationon 0 03-04-2025 PT Coag (Bld) [Time] 16.6 s High 9.0 - 12.0 s [facility] PT Coag (Bld) [Time] 15.5 s High 9.0 - 12.0 s [facility] No Panel Informationon 03-04 Interpretation and review of laboratory results Abnormal [facility] PROTHROMBIN TIMEon INR Coag (PPP) [Relative time] 1.6 {INR} High 0.9-1.1 [facility] Comment on above: Result Comment: Vaughn [...] Myocardial Infarction Performed By: #### L AB320 ####Loan Review Analyst: DOMENICA JARA ([phone])[facility] ([facility])[address] [place] [address] PT Coag (PPP) [Time] 16.6 s High 9.0-12.0 [facility] Comment on above: Performed By: #### L AB320 ####Loan Review Analyst: DOMENICA JARA ([id number])[facility] ([facility])[address] [place] [address] [place] INR Coag (PPP) [Relative time] 1.5 {INR} High 0.9-1.1 [facility] Comment on above: Result Comment: Vaughn [...] Myocardial Infarction Performed By: #### Tameka AB325, [id number] ####Loan Review Analyst: DOMENICA JARA ([id number])[place] [address] [place] PT Coag (PPP) [Time] 15.5 s High 9.0-12.0 [facility] Comment on above: Performed By: #### Tameka AB325, [id number] ####Loan Review Analyst: DOMENICA JARA ([id number])[place] [address] [place] PT Coag (Bld) [Time]on 03-04 INR Coag (PPP) [Relative time] 1.6 {INR} High 0.9 - 1.1 [facility] Interpretation and review of laboratory results Abnormal [facility] INR Coag (PPP) [Relative time] 1.5 {INR} High 0.9 - 1.1 [facility] Progress Noteon 03-04-2025 Progress Note Normal [facility] Progress Note Normal [facility] Progress Note Normal [facility] aPTT Coag (Bld) [Time]on aPTT Coag (PPP) [Time] 52.2 s High 20.0 - 30.5 s [facility] 30on 03-03-2025 30 Normal [facility] 30 Normal [facility] 30 Normal [facility] [id number] 03-03-2025 [id number] Normal [facility] APTTon 06-07-2025 aPTT Coag (Bld) [Time] 66.2 s High 20.0-30.5 [facility] Comment on above: Result Comment: ARPAN [facility] COMMENTS:NOTE: The therapeutic time for Heparin anticoagulation, based on Xa activity inhibition, is an APTT of 46-80 seconds. Performed By: #### L AB325 ####Loan Review Analyst: DOMENICA JARA ([phone])[facility] [place] [address] aPTT Coag (Bld) [Time] 52.4 s High 20.0-30.5 [facility] Comment on above: Result Comment: ARPAN [facility] COMMENTS:NOTE: The therapeutic time for Heparin anticoagulation, based on Xa activity inhibition, is an APTT of 46-80 seconds. Performed By: #### L AB325, [id number] ####Loan Review Analyst: DOMENICA JARA ([phone])[facility])[address] [place] [address] BASIC METABOLIC PANELon 06-0 Anion gap [Moles/Vol] 10 mmol/L Normal 3-13 [facility] Comment on above: Performed By: #### L AB15 ####Loan Review Analyst: DOMENICA JARA ([id number])[facility])[address] [place] [address] Calcium [Mass/Vol] 9.2 mg/dL Normal 8.4-10.2 [facility] Comment on above: Performed By: #### L AB15 ####Loan Review Analyst: DOMENICA JARA ([id number])[facility])[address] [place] [address] [place] Chloride [Moles/Vol] 100 mmol/L Normal 98-107 [facility] Comment on above: Performed By: #### L AB15 ####Loan Review Analyst: DOMENICA JARA ([id number])[facility] ([facility])[address] [place] [address] CO2 [Moles/Vol] 29 mmol/L Normal 22-29 [facility] Comment on above: Performed By: #### L AB15 ####Loan Review Analyst: DOMENICA JARA ([id number])[facility])[address] [place] [address] Creatinine [Mass/Vol] 1.92 mg/dL High 0.72-1.25 [facility] Comment on above: Performed By: #### L AB15 ####Loan Review Analyst: DOMENICA JARA ([id number])[facility])[address] [place] [address] [place] GLOMERULAR FILTRATION RATE ML/MIN/1.73 SQ M.PREDICTED 39.6 mL/min/1.73m*2 Low >60.0 [facility] Comment on above: Result Comment: Calc ulation based on the Chronic Kidney Disease Epidemiology Collaboration (CKD-EPI) equation refit without adjustment for race Performed By: #### L AB15 ####Loan Review Analyst: DOMENICA JARA ([id number])[facility])[address] [place] [address] [place] Glucose [Mass/Vol] 71 mg/dL Low 74-100 [facility] Comment on above: Performed By: #### L AB15 ####Loan Review Analyst: DOMENICA JARA ([id number])[facility])[address] [place] [address] Potassium [Moles/Vol] 4.8 mmol/L Normal 3.5-5.1 [facility] Comment on above: Result Comment: [facility] potassium values may be up to 0.5 mmol/L lower than serum values. Performed By: #### L AB15 ####Loan Review Analyst: DOMENICA JARA ([id number])[facility] ([facility])[address] [place] [address] [place] Sodium [Moles/Vol] 139 mmol/L Normal 136-145 [facility] Comment on above: Performed By: #### L AB15 ####Loan Review Analyst: DOMENICA JARA ([id number])[facility])[address] [place] [address] [place] Urea nitrogen [Mass/Vol] 14 mg/dL Normal 9-23 [facility] Comment on above: Performed By: #### L AB15 ####Loan Review Analyst: DOMENICA JARA ([id number])[facility] ([facility])[address] [place] [address] Anion gap [Moles/Vol] 11 mmol/L Normal 3-13 [facility] Comment on above: Performed By: #### L AB15 ####Loan Review Analyst: DOMENICA JARA ([phone])[facility] ([facility])[address] [place] [address] Calcium [Mass/Vol] 9.8 mg/dL Normal 8.4-10.2 [facility] Comment on above: Performed By: #### L AB15 ####Loan Review Analyst: DOMENICA JARA ([id number])[facility] ([facility])[address] [place] [address] Chloride [Moles/Vol] 101 mmol/L Normal 98-107 [facility] Comment on above: Performed By: #### L AB15 ####Loan Review Analyst: DOMENICA JARA ([id number])[facility] ([facility])[address] [place] [address] CO2 [Moles/Vol] 28 mmol/L Normal 22-29 [facility] Comment on above: Performed By: #### L AB15 ####Loan Review Analyst: DOMENICA JARA ([id number])[facility] ([facility])[address] [place] [address] Creatinine [Mass/Vol] 3.21 mg/dL High 0.72-1.25 [facility] Comment on above: Performed By: #### L AB15 ####Loan Review Analyst: DOMENICA JARA ([id number])[facility] ([facility])[address] [place] [address] [place] GLOMERULAR FILTRATION RATE ML/MIN/1.73 SQ M.PREDICTED 21.4 mL/min/1.73m*2 Low >60.0 [facility] Comment on above: Result Comment: Calc ulation based on the Chronic Kidney Disease Epidemiology Collaboration (CKD-EPI) equation refit without adjustment for race Performed By: #### L AB15 ####Loan Review Analyst: DOMENICA JARA ([id number])[facility] ([facility])[address] [place] [address] Glucose [Mass/Vol] 93 mg/dL Normal 74-100 [facility] Comment on above: Performed By: #### L AB15 ####Loan Review Analyst: DOMENICA JARA ([id number])[facility] ([facility])[address] [place] [address] [place] Potassium [Moles/Vol] 6.2 mmol/L Critically high 3.5-5.1 [facility] Comment on above: Result Comment: [facility] potassium values may be up to 0.5 mmol/L lower than serum values. Performed By: #### L AB15 ####Loan Review Analyst: DOMENICA JARA ([id number])[facility] ([facility])[address] [place] [address] Sodium [Moles/Vol] 140 mmol/L Normal 136-145 [facility] Comment on above: Performed By: #### L AB15 ####Loan Review Analyst: DOMENICA JARA ([id number])[facility] ([facility])[address] [place] [address] [place] Urea nitrogen [Mass/Vol] 26 mg/dL High 9-23 [facility] Comment on above: Performed By: #### L AB15 ####Loan Review Analyst: DOMENICA JARA ([id number])[facility] ([facility])[address] [place] [address] Basic metabolic 1998 panelOr dered By: Piedad Alvarado on 03-03-2025 Anion gap [Moles/Vol] 10 mmol/L 3 - 13 mmol/L [facility] Calcium [Mass/Vol] 9.2 mg/dL 8.4 - 10. 2 mg/dL [facility] Chloride [Moles/Vol] 100 mmol/L 98 - 10 7 mmol/L [facility] CO2 [Moles/Vol] 29 mmol/L 22 - 29 mmol/L [facility] Creatinine [Mass/Vol] 1.92 mg/dL High 0.72 - 1.25 mg/dL [facility] GFR/1.73 sq M.predicted (S/P/Bld) [Vol rate/Area] 39.6 mL/min Low - PINF [facility] Glucose [Mass/Vol] 71 mg/dL Low 74 - 100 mg/dL [facility] Interpretation and review of laboratory results Abnormal [facility] Potassium [Moles/Vol] 4.8 mmol/L 3.5 - 5.1 mmol/L [facility] Sodium [Moles/Vol] 139 mmol/L 136 - 145 mmol/L [facility] Urea nitrogen [Mass/Vol] 14 mg/dL 9 - 23 mg/d L [facility] Basic metabolic 1998 panelOr dered By: Jenni Romano on 03-03-2025 Anion gap [Moles/Vol] 11 mmol/L 3 - 13 mmol/L [facility] Calcium [Mass/Vol] 9.8 mg/dL 8.4 - 10. 2 mg/dL [facility] Chloride [Moles/Vol] 101 mmol/L 98 - 10 7 mmol/L [facility] CO2 [Moles/Vol] 28 mmol/L 22 - 29 mmol/L [facility] Creatinine [Mass/Vol] 3.21 mg/dL High 0.72 - 1.25 mg/dL [facility] GFR/1.73 sq M.predicted (S/P/Bld) [Vol rate/Area] 21.4 mL/min Low - PINF [facility] Glucose [Mass/Vol] 93 mg/dL 74 - 100 mg/dL [facility] Interpretation and review of laboratory results Abnormal [facility] Potassium [Moles/Vol] 6.2 mmol/L Critically high 3.5 - 5.1 mmol/L [facility] Sodium [Moles/Vol] 140 mmol/L 136 - 145 mmol/L [facility] Urea nitrogen [Mass/Vol] 26 mg/dL High 9 - 23 mg/d L [facility] CBC (HEMOGRAM)on 03-03-2025 Erythrocyte distribution width (RBC) [Ratio] 20.9 % High 11.5-15.0 [facility] Comment on above: Performed By: #### L [id number] ####Loan Review Analyst: DOMENICA JARA ([id number])[facility] ([address] Hematocrit (Bld) [Volume fraction] 27.8 % Low 40.0-52.0 [facility] Comment on above: Performed By: #### L AB294 ####Loan Review Analyst: DOMENICA JARA ([id number])[facility])[address] [place] [address] Hemoglobin (Bld) [Mass/Vol] 8.3 g/dL Low 13.0-18.0 [facility] Comment on above: Performed By: #### L AB294 ####Loan Review Analyst: DOMENICA JARA ([id number])[facility])[address] [place] [address] IPF 2 Normal [facility] Comment on above: Performed By: #### L AB294 ####Loan Review Analyst: DOMENICA JARA ([id number])[facility])[address] [place] [address] MCH (RBC) [Entitic mass] 29.5 pg Normal 26.0-34.0 [facility] Comment on above: Performed By: #### L AB294 ####Loan Review Analyst: DOMENICA JARA ([id number])[facility])[address] [place] [address] MCHC 29.9 % Low 30.5-36.0 [facility] Comment on above: Performed By: #### L AB294 ####Loan Review Analyst: DOMENICA JARA ([id number])[facility])[address] [place] [address] MCV (RBC) [Entitic vol] 98.9 fL Normal 77.0-99.0 [facility] Comment on above: Performed By: #### L AB294 ####Loan Review Analyst: DOMENICA JARA ([id number])[facility])[address] [place] [address] Platelet mean volume (Bld) [Entitic vol] 9.1 fL Normal 9.0-12.7 [facility] Comment on above: Performed By: #### L AB294 ####Loan Review Analyst: DOMENICA JARA ([id number])[facility])[address] [place] [address] Platelets (Bld) [#/Vol] 397 10*3/uL Normal 140-440 [facility] Comment on above: Performed By: #### L AB294 ####Loan Review Analyst: DOMENICA JAAR ([id number])[facility])[address] [place] [address] RBC (Bld) [#/Vol] 2.81 10*6/uL Low 4.40-5.90 [facility] Comment on above: Performed By: #### L AB294 ####Loan Review Analyst: DOMENICA JARA ([id number])[address] WBC (Bld) [#/Vol] 8.9 10*3/uL Normal 3.6-10.7 [facility] Comment on above: Performed By: #### L AB294 ####Loan Review Analyst: DOMENICA JARA ([id number])[facility])[address] [place] [address] CBC panel Auto (Bld)Ordered By: Anu Graham on 03-03-2025 Erythrocyte distribution width (RBC) [Ratio] 20.9 % High 11.5 - 15.0 % [facility] Hematocrit (Bld) [Volume fraction] 27.8 % Low 40.0 - 52.0 % [facility] Hemoglobin (Bld) [Mass/Vol] 8.3 g/dL Low 13.0 - 18.0 g/dL [facility] Interpretation and review of laboratory results Abnormal [facility] IPF 2 [facility] MCH (RBC) [Entitic mass] 29.5 pg 26. 0 - 34.[address] [facility] MCHC (RBC) [Mass/Vol] 29.9 % Low 30.5 - 36.0 % [facility] MCV (RBC) [Entitic vol] 98.9 fL 77.0 - 99.[address] [facility] Platelet mean volume (Bld) [Entitic vol] 9.1 fL 9.0 - 12.[address] [facility] Platelets (Bld) [#/Vol] 397 10*3/uL 140 - 440 10*3/uL [facility] RBC (Bld) [#/Vol] 2.81 10*6/uL Low 4.40 - 5.9 0 10*6/uL [facility] WBC (Bld) [#/Vol] 8.9 10*3/uL 3.6 - 10.7 10*3/uL [facility] Laboratory - Coagulationon 0 03-03-2025 PT Coag (Bld) [Time] 16.2 s High 9.0 - 12.0 s [facility] No Panel Informationon 03-03 Interpretation and review of laboratory results Abnormal [facility] Nursing Noteon 03-03-2025 Nursing Note Normal [facility] Nursing Note In patient's chart, d/t patient being on his call light excessively and finally telling me he wants something for pain. Please see eMAR for administration Normal [facility] PROTHROMBIN TIMEon INR Coag (PPP) [Relative time] 1.6 {INR} High 0.9-1.1 [facility] Comment on above: Result Comment: Vaughn [...] prevent Myocardial Infarction Performed By: #### Tameka ISAAC325, [id number] ####Loan Review Analyst: DOMENICA JARA ([id number])[address] PT Coag (PPP) [Time] 16.2 s High 9.0-12.0 [facility] Comment on above: Performed By: #### Tameka ISAAC325, [id number] ####Loan Review Analyst: DOMENICA JARA ([id number])[facility] ([facility])[address] [place] [address] PT Coag (Bld) [Time]on 03-03 INR Coag (PPP) [Relative time] 1.6 {INR} High 0.9 - 1.1 [facility] Progress Noteon 03-03-2025 Progress Note Normal [facility] Progress Note Normal [facility] Progress Note Normal [facility] aPTT Coag (Bld) [Time]on aPTT Coag (PPP) [Time] 66.2 s High 20.0 - 30.[address] [facility] Interpretation and review of laboratory results Abnormal [facility] aPTT Coag (PPP) [Time] 52.4 s High 20.0 - 30.5 s [facility] 30on 03-02-2025 30 Switch to augmentin 500mg q24 (to be taken after HD on HD days) until 03/10/25. Team aware of discharge plan Waiting for INR to be in therapeutic range ID will sign off Please re consult if needed Hussain Quintana MD 03/02/2025 12:43 PM Normal [facility] 30 Normal [facility] [id number] 03-02-2025 [id number] Normal [facility] APTTon 03-02-2025 aPTT Coag (Bld) [Time] 68.9 s High 20.0-30.5 [facility] Comment on above: Result Comment: ARPAN Kaplan COMMENTS:NOTE: The therapeutic time for Heparin anticoagulation, based on Xa activity inhibition, is an APTT of 46-80 seconds. Performed By: #### L AB325 ####Loan Review Analyst: DOMENICA JARA ([id number])[address] aPTT Coag (Bld) [Time] 44.7 s High 20.0-30.5 [facility] Comment on above: Result Comment: ARPAN Kaplan COMMENTS:NOTE: The therapeutic time for Heparin anticoagulation, based on Xa activity inhibition, is an APTT of 46-80 seconds. Performed By: #### L AB325 ####Loan Review Analyst: DOMENICA JARA ([id number])[facility] ([facility])[address] [place] [address] aPTT Coag (Bld) [Time] 56.5 s High 20.0-30.5 [facility] Comment on above: Result Comment: ARPAN Kaplan COMMENTS:NOTE: The therapeutic time for Heparin anticoagulation, based on Xa activity inhibition, is an APTT of 46-80 seconds. Performed By: #### L AB325 ####Loan Review Analyst: DOMENICA JARA ([id number])[facility] ([facility])[address] [place] [address] aPTT Coag (Bld) [Time] 44.7 s High 20.0-30.5 [facility] Comment on above: Result Comment: ARPAN Kaplan COMMENTS:NOTE: The therapeutic time for Heparin anticoagulation, based on Xa activity inhibition, is an APTT of 46-80 seconds. Performed By: #### L AB320, [id number] ####Loan Review Analyst: DOMENICA JARA ([id number])[facility] ([facility])[address] [place] [address] BASIC METABOLIC PANELon 06-0 Anion gap [Moles/Vol] 11 mmol/L Normal 3-13 [facility] Comment on above: Performed By: #### L AB15 ####Loan Review Analyst: DOMENICA JARA ([id number])[facility] ([facility])[address] [place] [address] Calcium [Mass/Vol] 9.2 mg/dL Normal 8.4-10.2 [facility] Comment on above: Performed By: #### L AB15 ####Loan Review Analyst: DOMENICA JARA ([id number])[facility])[address] [place] [address] Chloride [Moles/Vol] 102 mmol/L Normal 98-107 [facility] Comment on above: Performed By: #### L AB15 ####Loan Review Analyst: DOMENICA JARA ([id number])[facility] ([facility])[address] [place] [address] CO2 [Moles/Vol] 26 mmol/L Normal 22-29 [facility] Comment on above: Performed By: #### L AB15 ####Loan Review Analyst: DOMENICA JARA ([id number])[facility] ([facility])[address] [place] [address] Creatinine [Mass/Vol] 2.53 mg/dL High 0.72-1.25 [facility] Comment on above: Performed By: #### L AB15 ####Loan Review Analyst: DOMENICA JARA ([id number])[facility])[address] [place] [address] [place] GLOMERULAR FILTRATION RATE ML/MIN/1.73 SQ M.PREDICTED 28.5 mL/min/1.73m*2 Low >60.0 [facility] Comment on above: Result Comment: Calc ulation based on the Chronic Kidney Disease Epidemiology Collaboration (CKD-EPI) equation refit without adjustment for race Performed By: #### L AB15 ####Loan Review Analyst: DOMENICA JARA ([id number])[facility] ([facility])[address] [place] [address] [place] Glucose [Mass/Vol] 107 mg/dL High 74-100 [facility] Comment on above: Performed By: #### L AB15 ####Loan Review Analyst: DOMENICA JARA ([id number])[facility])[address] [place] [address] [place] Potassium [Moles/Vol] 4.6 mmol/L Normal 3.5-5.1 [facility] Comment on above: Result Comment: [facility] potassium values may be up to 0.5 mmol/L lower than serum values. Performed By: #### L AB15 ####Loan Review Analyst: DOMENICA JARA ([id number])[facility] ([facility])[address] [place] [address] [place] Sodium [Moles/Vol] 139 mmol/L Normal 136-145 [facility] Comment on above: Performed By: #### L AB15 ####Loan Review Analyst: DOMENICA JARA ([id number])[facility])[address] [place] [address] [place] Urea nitrogen [Mass/Vol] 16 mg/dL Normal 9-23 [facility] Comment on above: Performed By: #### L AB15 ####Loan Review Analyst: DOMENICA JARA ([id number])[facility])[address] [place] [address] Basic metabolic 1998 panelon 03-02-2025 Anion gap [Moles/Vol] 11 mmol/L 3 - 13 mmol/L [facility] Calcium [Mass/Vol] 9.2 mg/dL 8.4 - 10. 2 mg/dL [facility] Chloride [Moles/Vol] 102 mmol/L 98 - 10 7 mmol/L [facility] CO2 [Moles/Vol] 26 mmol/L 22 - 29 mmol/L [facility] Creatinine [Mass/Vol] 2.53 mg/dL High 0.72 - 1.25 mg/dL [facility] GFR/1.73 sq M.predicted (S/P/Bld) [Vol rate/Area] 28.5 mL/min Low - PINF [facility] Glucose [Mass/Vol] 107 mg/dL High 74 - 100 mg/dL [facility] Interpretation and review of laboratory results Abnormal [facility] Potassium [Moles/Vol] 4.6 mmol/L 3.5 - 5.1 mmol/L [facility] Sodium [Moles/Vol] 139 mmol/L 136 - 145 mmol/L [facility] Urea nitrogen [Mass/Vol] 16 mg/dL 9 - 23 mg/d L [facility] CBC (HEMOGRAM)on 03-02-2025 Erythrocyte distribution width (RBC) [Ratio] 20.1 % High 11.5-15.0 [facility] Comment on above: Performed By: #### L AB294 ####Loan Review Analyst: DOMENICA JARA ([id number])[facility] ([facility])[address] [place] [address] Hematocrit (Bld) [Volume fraction] 25.4 % Low 40.0-52.0 [facility] Comment on above: Performed By: #### L AB294 ####Loan Review Analyst: DOMENICA JARA ([id number])[facility])[address] [place] [address] Hemoglobin (Bld) [Mass/Vol] 7.7 g/dL Low 13.0-18.0 [facility] Comment on above: Performed By: #### L AB294 ####Loan Review Analyst: DOMENICA JARA ([id number])[facility] ([facility])[address] [place] [address] IPF 2 Normal [facility] Comment on above: Performed By: #### L AB294 ####Loan Review Analyst: DOMENICA JARA ([id number])[facility])[address] [place] [address] MCH (RBC) [Entitic mass] 29.7 pg Normal 26.0-34.0 [facility] Comment on above: Performed By: #### L AB294 ####Loan Review Analyst: DOMENICA JARA ([id number])[facility])[address] [place] [address] MCHC 30.3 % Low 30.5-36.0 [facility] Comment on above: Performed By: #### L AB294 ####Loan Review Analyst: DOMENICA JARA ([id number])[facility] ([facility])[address] [place] [address] MCV (RBC) [Entitic vol] 98.1 fL Normal 77.0-99.0 [facility] Comment on above: Performed By: #### L AB294 ####Loan Review Analyst: DOMENICA JARA ([id number])[facility])[address] [place] [address] Platelet mean volume (Bld) [Entitic vol] 9.0 fL Normal 9.0-12.7 [facility] Comment on above: Performed By: #### L AB294 ####Loan Review Analyst: DOMENICA JARA ([id number])[facility] ([facility])[address] [place] [address] Platelets (Bld) [#/Vol] 354 10*3/uL Normal 140-440 [facility] Comment on above: Performed By: #### L AB294 ####Loan Review Analyst: DOMENICA JARA ([id number])[facility])[address] [place] [address] RBC (Bld) [#/Vol] 2.59 10*6/uL Low 4.40-5.90 [facility] Comment on above: Performed By: #### L AB294 ####Loan Review Analyst: DOMENICA JARA ([id number])[facility] ([facility])[address] [place] [address] WBC (Bld) [#/Vol] 7.4 10*3/uL Normal 3.6-10.7 [facility] Comment on above: Performed By: #### L AB294 ####Loan Review Analyst: DOMENICA JARA ([id number])[facility] ([facility])[address] [place] [address] CBC panel Auto (Bld)Ordered By: Callie Steele on 03-02-2025 Erythrocyte distribution width (RBC) [Ratio] 20.1 % High 11.5 - 15.0 % [facility] Hematocrit (Bld) [Volume fraction] 25.4 % Low 40.0 - 52.0 % [facility] Hemoglobin (Bld) [Mass/Vol] 7.7 g/dL Low 13.0 - 18.0 g/dL [facility] Interpretation and review of laboratory results Abnormal [facility] IPF 2 [facility] MCH (RBC) [Entitic mass] 29.7 pg 26. 0 - 34.[address] [facility] MCHC (RBC) [Mass/Vol] 30.3 % Low 30.5 - 36.0 % [facility] MCV (RBC) [Entitic vol] 98.1 fL 77.0 - 99.[address] [facility] Platelet mean volume (Bld) [Entitic vol] 9 fL 9.0 - 12.[address] [facility] Platelets (Bld) [#/Vol] 354 10*3/uL 140 - 440 10*3/uL [facility] RBC (Bld) [#/Vol] 2.59 10*6/uL Low 4.40 - 5.9 0 10*6/uL [facility] WBC (Bld) [#/Vol] 7.4 10*3/uL 3.6 - 10.7 10*3/uL [facility] Laboratory - Coagulationon 0 03-02-2025 PT Coag (Bld) [Time] 14.7 s High 9.0 - 12.0 s [facility] No Panel Informationon 03-02 Interpretation and review of laboratory results Abnormal [facility] PROTHROMBIN TIMEon INR Coag (PPP) [Relative time] 1.4 {INR} High 0.9-1.1 [facility] Comment on above: Result Comment: Vaughn [...] Myocardial Infarction Performed By: #### Tameka [id number], [id number] ####Loan Review Analyst: DOMENICA JARA ([id number])[facility])[address] [place] [address] PT Coag (PPP) [Time] 14.7 s High 9.0-12.0 [facility] Comment on above: Performed By: #### Tameka AB320, [id number] ####Loan Review Analyst: DOMENICA JARA ([id number])[facility])[address] [place] [address] PT Coag (Bld) [Time]on 03-02 INR Coag (PPP) [Relative time] 1.4 {INR} High 0.9 - 1.1 [facility] Progress Noteon 03-02-[address] [facility] Progress [facility] aPTT Coag (Bld) [Time]on aPTT Coag (PPP) [Time] 68.9 s High 20.0 - 30.[address] [facility] Interpretation and review of laboratory results Abnormal [facility] aPTT Coag (PPP) [Time] 44.7 s High 20.0 - 30.[address] [facility] Interpretation and review of laboratory results Abnormal [facility] aPTT Coag (PPP) [Time] 56.5 s High 20.0 - 30.[address] [facility] Interpretation and review of laboratory results Abnormal [facility] aPTT Coag (PPP) [Time] 44.7 s High 20.0 - 30.5 s [facility] 30on 03-01-2025 30 Normal [facility] [id number] 03-01-2025 [id number] Discharge med list and updated notes transmitted to [facility] via [facility] per TCC request. Normal [facility] [id number] Normal [facility] APTTon 03-01-2025 aPTT Coag (Bld) [Time] 51.3 s High 20.0-30.5 [place] Comment on above: Result Comment: ARPAN Kaplan COMMENTS:NOTE: The therapeutic time for Heparin anticoagulation, based on Xa activity inhibition, is an APTT of 46-80 seconds. Performed By: #### L AB320, [id number] ####Loan Review Analyst: DOMENICA JARA ([id number])[facility] ([facility])[address] [place] [address] BASIC METABOLIC PANELon 06-0 Anion gap [Moles/Vol] 13 mmol/L Normal 3-13 [facility] Comment on above: Performed By: #### L AB15 ####Loan Review Analyst: DOMENICA JARA ([id number])[facility] ([facility])[address] [place] [address] [place] Calcium [Mass/Vol] 9.6 mg/dL Normal 8.4-10.2 [facility] Comment on above: Performed By: #### L AB15 ####Loan Review Analyst: DOMENICA JARA ([id number])[facility] ([facility])[address] [place] [address] [place] Chloride [Moles/Vol] 102 mmol/L Normal 98-107 [facility] Comment on above: Performed By: #### L AB15 ####Loan Review Analyst: DOMENICA JARA ([id number])[facility] ([facility])[address] [place] [address] CO2 [Moles/Vol] 23 mmol/L Normal 22-29 [facility] Comment on above: Performed By: #### L AB15 ####Loan Review Analyst: DOMENICA JARA ([id number])[facility] ([facility])[address] [place] [address] Creatinine [Mass/Vol] 3.73 mg/dL High 0.72-1.25 [facility] Comment on above: Performed By: #### L AB15 ####Loan Review Analyst: DOMENICA JARA ([id number])[facility])[address] [place] [address] GLOMERULAR FILTRATION RATE ML/MIN/1.73 SQ M.PREDICTED 17.9 mL/min/1.73m*2 Low >60.0 [facility] Comment on above: Result Comment: Calc ulation based on the Chronic Kidney Disease Epidemiology Collaboration (CKD-EPI) equation refit without adjustment for race Performed By: #### L AB15 ####Loan Review Analyst: DOMENICA JARA ([id number])[facility] ([facility])[address] [place] [address] Glucose [Mass/Vol] 87 mg/dL Normal 74-100 [facility] Comment on above: Performed By: #### L AB15 ####Loan Review Analyst: DOMENICA JARA ([id number])[facility])[address] [place] [address] Potassium [Moles/Vol] 5.8 mmol/L High 3.5-5.1 [facility] Comment on above: Result Comment: [facility] potassium values may be up to 0.5 mmol/L lower than serum values. Performed By: #### L AB15 ####Loan Review Analyst: DOMENICA JARA ([id number])[facility] ([facility])[address] [place] [address] Sodium [Moles/Vol] 138 mmol/L Normal 136-145 [facility] Comment on above: Performed By: #### L AB15 ####Loan Review Analyst: DOMENICA JARA ([id number])[facility] ([facility])[address] [place] [address] Urea nitrogen [Mass/Vol] 28 mg/dL High 9-23 [facility] Comment on above: Performed By: #### L AB15 ####Loan Review Analyst: DOMENICA JARA ([id number])[facility] ([facility])[address] [place] [address] Basic metabolic 1998 panelon 03-01-2025 Anion gap [Moles/Vol] 13 mmol/L 3 - 13 mmol/L [facility] Calcium [Mass/Vol] 9.6 mg/dL 8.4 - 10. 2 mg/dL [facility] Chloride [Moles/Vol] 102 mmol/L 98 - 10 7 mmol/L [facility] CO2 [Moles/Vol] 23 mmol/L 22 - 29 mmol/L [facility] Creatinine [Mass/Vol] 3.73 mg/dL High 0.72 - 1.25 mg/dL [facility] GFR/1.73 sq M.predicted (S/P/Bld) [Vol rate/Area] 17.9 mL/min Low - PINF [facility] Glucose [Mass/Vol] 87 mg/dL 74 - 100 mg/dL [facility] Interpretation and review of laboratory results Abnormal [facility] Potassium [Moles/Vol] 5.8 mmol/L High 3.5 - 5.1 mmol/L [facility] Sodium [Moles/Vol] 138 mmol/L 136 - 145 mmol/L [facility] Urea nitrogen [Mass/Vol] 28 mg/dL High 9 - 23 mg/d L [facility] CBC (HEMOGRAM)on 03-01-2025 Erythrocyte distribution width (RBC) [Ratio] 19.7 % High 11.5-15.0 [facility] Comment on above: Performed By: #### L AB294 ####Loan Review Analyst: DOMENICA JARA ([id number])[facility] ([facility])[address] [place] [address] Hematocrit (Bld) [Volume fraction] 26.9 % Low 40.0-52.0 [facility] Comment on above: Performed By: #### L AB294 ####Loan Review Analyst: DOMENICA JARA ([id number])[facility])[address] [place] [address] Hemoglobin (Bld) [Mass/Vol] 8.0 g/dL Low 13.0-18.0 [facility] Comment on above: Performed By: #### L AB294 ####Loan Review Analyst: DOMENICA JARA ([id number])[facility])[address] [place] [address] MCH (RBC) [Entitic mass] 28.8 pg Normal 26.0-34.0 [facility] Comment on above: Performed By: #### L AB294 ####Loan Review Analyst: DOMENICA JARA ([id number])[facility])[address] [place] [address] MCHC 29.7 % Low 30.5-36.0 [facility] Comment on above: Performed By: #### L AB294 ####Loan Review Analyst: DOMENICA JARA ([id number])[facility] ([facility])[address] [place] [address] MCV (RBC) [Entitic vol] 96.8 fL Normal 77.0-99.0 [facility] Comment on above: Performed By: #### L AB294 ####Loan Review Analyst: DOMENICA JARA ([id number])[facility])[address] [place] [address] Platelet mean volume (Bld) [Entitic vol] 8.7 fL Low 9.0-12.7 [facility] Comment on above: Performed By: #### L AB294 ####Loan Review Analyst: DOMENICA JARA ([id number])[facility])[address] [place] [address] Platelets (Bld) [#/Vol] 306 10*3/uL Normal 140-440 [facility] Comment on above: Performed By: #### L AB294 ####Loan Review Analyst: DOMENICA JARA ([id number])[facility] [place] [address] RBC (Bld) [#/Vol] 2.78 10*6/uL Low 4.40-5.90 [facility] Comment on above: Performed By: #### L AB294 ####Loan Review Analyst: DOMENICA JARA ([id number])[facility])[address] [place] [address] WBC (Bld) [#/Vol] 7.5 10*3/uL Normal 3.6-10.7 [facility] Comment on above: Performed By: #### L AB294 ####Loan Review Analyst: DOMENICA JARA ([id number])[facility])[address] [place] [address] CBC panel Auto (Bld)on 03-01 Erythrocyte distribution width (RBC) [Ratio] 19.7 % High 11.5 - 15.0 % [facility] Hematocrit (Bld) [Volume fraction] 26.9 % Low 40.0 - 52.0 % [facility] Hemoglobin (Bld) [Mass/Vol] 8 g/dL Low 13.0 - 18.0 g/dL [facility] Interpretation and review of laboratory results Abnormal [facility] MCH (RBC) [Entitic mass] 28.8 pg 26. 0 - 34.[address] [facility] MCHC (RBC) [Mass/Vol] 29.7 % Low 30.5 - 36.0 % [facility] MCV (RBC) [Entitic vol] 96.8 fL 77.0 - 99.[address] [facility] Platelet mean volume (Bld) [Entitic vol] 8.7 fL Low 9.0 - 12.[address] [facility] Platelets (Bld) [#/Vol] 306 10*3/uL 140 - 440 10*3/uL [facility] RBC (Bld) [#/Vol] 2.78 10*6/uL Low 4.40 - 5.9 0 10*6/uL [facility] WBC (Bld) [#/Vol] 7.5 10*3/uL 3.6 - 10.7 10*3/uL [facility] Laboratory - Coagulationon 0 03-01-2025 PT Coag (Bld) [Time] 14.3 s High 9.0 - 12.0 s [facility] No Panel Informationon 03-01 Interpretation and review of laboratory results Abnormal [facility] Nursing Noteon 03-01-2025 Nursing Note Normal [facility] PROTHROMBIN TIMEon INR Coag (PPP) [Relative time] 1.4 {INR} High 0.9-1.1 [facility] Comment on above: Result Comment: Vaughn [...] Myocardial Infarction Performed By: #### Tameka AB320, [id number] ####Loan Review Analyst: DOMENICA JARA ([id number])[facility] ([facility])[address] [place] [address] PT Coag (PPP) [Time] 14.3 s High 9.0-12.0 [facility] Comment on above: Performed By: #### Tameka AB320, [id number] ####Loan Review Analyst: DOMENICA JARA ([id number])[facility])[address] [place] [address] PT Coag (Bld) [Time]on 03-01 INR Coag (PPP) [Relative time] 1.4 {INR} High 0.9 - 1.1 [facility] Progress Noteon 03-01-2025 Progress Note Normal [facility] Progress Note Normal [facility] Progress Note Normal [facility] Progress [facility] Progress Note PHYSICAL THERAPY [facility] Name/MRN: Jair Snyder ([id number]) Date: 03/01/2025 Leaving for dialysis. Return later time/date for PT. Merlene León PTA Normal [facility] Progress Note Normal [facility] aPTT Coag (Bld) [Time]on aPTT Coag (PPP) [Time] 51.3 s High 20.0 - 30.5 s [facility] 30on 02-28-2025 30 Normal [facility] 30 Normal [facility] [id number] 02-28-2025 [id number] Auth is back however can not discharge still on hep gtt- auth good thru 03/02- hoping by Wednesday AM . Updated snf . [facility] [phone] Transport requested in [employer] in will call per TCC. [facility] [phone] Tasked [employer] to set up transport in will call, not ready for DC, Auth pending Normal [facility] APTTon 02-28-2025 aPTT Coag (Bld) [Time] 47.7 s High 20.0-30.5 [facility] Comment on above: Result Comment: ARPAN Kaplan COMMENTS:NOTE: The therapeutic time for Heparin anticoagulation, based on Xa activity inhibition, is an APTT of 46-80 seconds. Performed By: #### L AB325, [id number] ####Loan Review Analyst: DOMENICA JARA ([id number])[facility] ([address] BASIC METABOLIC PANELon Anion gap [Moles/Vol] 11 mmol/L Normal 3-13 [facility] Comment on above: Performed By: #### L AB15 ####Loan Review Analyst: DOMENICA JARA ([id number])[facility] ([address] Calcium [Mass/Vol] 9.3 mg/dL Normal 8.4-10.2 [facility] Comment on above: Performed By: #### L AB15 ####Loan Review Analyst: DOMENICA JARA ([id number])[facility])[address] [place] [address] Chloride [Moles/Vol] 100 mmol/L Normal 98-107 [facility] Comment on above: Performed By: #### L AB15 ####Loan Review Analyst: DOMENICA JARA ([id number])[facility] ([facility])[address] [place] [address] CO2 [Moles/Vol] 27 mmol/L Normal 22-29 [facility] Comment on above: Performed By: #### L AB15 ####Loan Review Analyst: DOMENICA JARA ([id number])[facility] ([facility])[address] [place] [address] Creatinine [Mass/Vol] 3.06 mg/dL High 0.72-1.25 [facility] Comment on above: Performed By: #### L AB15 ####Loan Review Analyst: DOMENICA JARA ([id number])[facility] ([facility])[address] [place] [address] GLOMERULAR FILTRATION RATE ML/MIN/1.73 SQ M.PREDICTED 22.7 mL/min/1.73m*2 Low >60.0 [facility] Comment on above: Result Comment: Calc ulation based on the Chronic Kidney Disease Epidemiology Collaboration (CKD-EPI) equation refit without adjustment for race Performed By: #### L AB15 ####Loan Review Analyst: DOMENICA JARA ([id number])[facility] ([facility])[address] [place] [address] Glucose [Mass/Vol] 94 mg/dL Normal 74-100 [facility] Comment on above: Performed By: #### L AB15 ####Loan Review Analyst: DOMENICA JARA ([id number])[facility] ([facility])[address] [place] [address] Potassium [Moles/Vol] 5.0 mmol/L Normal 3.5-5.1 [facility] Comment on above: Result Comment: [facility] potassium values may be up to 0.5 mmol/L lower than serum values. Performed By: #### L AB15 ####Loan Review Analyst: DOMENICA JARA ([id number])[facility] ([facility])[address] [place] [address] Sodium [Moles/Vol] 138 mmol/L Normal 136-145 [facility] Comment on above: Performed By: #### L AB15 ####Loan Review Analyst: DOMENICA JARA ([id number])[facility] ([facility])[address] [place] [address] Urea nitrogen [Mass/Vol] 19 mg/dL Normal 9-23 [facility] Comment on above: Performed By: #### L AB15 ####Loan Review Analyst: DOMENICA JARA ([id number])[facility])[address] [place] [address] Basic metabolic 1998 panelon 02-28-2025 Anion gap [Moles/Vol] 11 mmol/L 3 - 13 mmol/L [facility] Calcium [Mass/Vol] 9.3 mg/dL 8.4 - 10. 2 mg/dL [facility] Chloride [Moles/Vol] 100 mmol/L 98 - 10 7 mmol/L [facility] CO2 [Moles/Vol] 27 mmol/L 22 - 29 mmol/L [facility] Creatinine [Mass/Vol] 3.06 mg/dL High 0.72 - 1.25 mg/dL [facility] GFR/1.73 sq M.predicted (S/P/Bld) [Vol rate/Area] 22.7 mL/min Low - PINF [facility] Glucose [Mass/Vol] 94 mg/dL 74 - 100 mg/dL [facility] Interpretation and review of laboratory results Abnormal [facility] Potassium [Moles/Vol] 5 mmol/L 3.5 - 5.1 mmol/L [facility] Sodium [Moles/Vol] 138 mmol/L 136 - 145 mmol/L [facility] Urea nitrogen [Mass/Vol] 19 mg/dL 9 - 23 mg/d L [facility] CBC (HEMOGRAM)on 02-28-2025 Erythrocyte distribution width (RBC) [Ratio] 19.8 % High 11.5-15.0 [facility] Comment on above: Performed By: #### L AB294 ####Loan Review Analyst: DOMENICA JARA ([id number])[facility] ([facility])[address] [place] [address] Hematocrit (Bld) [Volume fraction] 26.9 % Low 40.0-52.0 [facility] Comment on above: Performed By: #### L AB294 ####Loan Review Analyst: DOMENICA JARA ([id number])[facility])[address] [place] [address] Hemoglobin (Bld) [Mass/Vol] 8.2 g/dL Low 13.0-18.0 [facility] Comment on above: Performed By: #### L AB294 ####Loan Review Analyst: DOMENICA JARA ([id number])[facility])[address] [place] [address] MCH (RBC) [Entitic mass] 29.3 pg Normal 26.0-34.0 [facility] Comment on above: Performed By: #### L AB294 ####Loan Review Analyst: DOMENICA JARA ([id number])[facility] ([facility])[address] [place] [address] MCHC 30.5 % Normal 30.5-36.0 [facility] Comment on above: Performed By: #### L AB294 ####Loan Review Analyst: DOMENICA JARA ([id number])[facility] ([facility])[address] [place] [address] MCV (RBC) [Entitic vol] 96.1 fL Normal 77.0-99.0 S [facility] Comment on above: Performed By: #### L AB294 ####Loan Review Analyst: DOMENICA JARA ([id number])[facility] ([facility])[address] [place] [address] Platelet mean volume (Bld) [Entitic vol] 9.0 fL Normal 9.0-12.7 [facility] Comment on above: Performed By: #### L AB294 ####Loan Review Analyst: DOMENICA JARA ([id number])[facility])[address] [place] [address] Platelets (Bld) [#/Vol] 324 10*3/uL Normal 140-440 [facility] Comment on above: Performed By: #### L AB294 ####Loan Review Analyst: DOMEINCA JARA ([id number])[address] RBC (Bld) [#/Vol] 2.80 10*6/uL Low 4.40-5.90 [facility] Comment on above: Performed By: #### L AB294 ####Loan Review Analyst: DOMENICA JARA ([id number])[facility])[address] [place] [address] WBC (Bld) [#/Vol] 8.0 10*3/uL Normal 3.6-10.7 [facility] Comment on above: Performed By: #### L AB294 ####Loan Review Analyst: DOMENICA JARA ([id number])[address] CBC panel Auto (Bld)Ordered By: Giancarlo Lakhani on 02-28-2025 Erythrocyte distribution width (RBC) [Ratio] 19.8 % High 11.5 - 15.0 % [facility] Hematocrit (Bld) [Volume fraction] 26.9 % Low 40.0 - 52.0 % [facility] Hemoglobin (Bld) [Mass/Vol] 8.2 g/dL Low 13.0 - 18.0 g/dL [facility] Interpretation and review of laboratory results Abnormal [facility] MCH (RBC) [Entitic mass] 29.3 pg 26. 0 - 34.[address] [facility] MCHC (RBC) [Mass/Vol] 30.5 % 30.5 - 36.0 % [facility] MCV (RBC) [Entitic vol] 96.1 fL 77.0 - 99.[address] [facility] Platelet mean volume (Bld) [Entitic vol] 9 fL 9.0 - 12.[address] [facility] Platelets (Bld) [#/Vol] 324 10*3/uL 140 - 440 10*3/uL [facility] RBC (Bld) [#/Vol] 2.8 10*6/uL Low 4.40 - 5.9 0 10*6/uL [facility] WBC (Bld) [#/Vol] 8 10*3/uL 3.6 - 10.7 10*3/uL [facility] Laboratory - Coagulationon 0 02-28-2025 PT Coag (Bld) [Time] 14 s High 9.0 - 12.0 s [facility] No Panel Informationon 02-28 Interpretation and review of laboratory results Abnormal [facility] Nursing Noteon 02-28-2025 Nursing Note Normal [facility] PROTHROMBIN TIMEon INR Coag (PPP) [Relative time] 1.3 {INR} High 0.9-1.1 [facility] Comment on above: Result Comment: Vaughn [...] Myocardial Infarction Performed By: #### Tameka AB325, [id number] ####Loan Review Analyst: DOMENICA JARA ([id number])[address] PT Coag (PPP) [Time] 14.0 s High 9.0-12.0 [facility] Comment on above: Performed By: #### Tameka AB325, [id number] ####Loan Review Analyst: DOMENICA JARA ([id number])[facility])[address] [place] [address] PT Coag (Bld) [Time]on 02-28 INR Coag (PPP) [Relative time] 1.3 {INR} High 0.9 - 1.1 [facility] Progress Noteon 02-28-2025 Progress Note Normal [facility] Progress Note Normal [facility] Progress Note Normal [facility] Progress Note Normal [facility] aPTT Coag (Bld) [Time]on aPTT Coag (PPP) [Time] 47.7 s High 20.0 - 30.5 s [facility] 30on 02-27-2025 30 Normal [facility] 30 Normal [facility] [id number] 02-27-2025 [id number] Normal [facility] APTTon 02-27-2025 aPTT Coag (Bld) [Time] 55.6 s High 20.0-30.5 [place] [facility] Comment on above: Result Comment: ARPAN Kaplan COMMENTS:NOTE: The therapeutic time for Heparin anticoagulation, based on Xa activity inhibition, is an APTT of 46-80 seconds. Performed By: #### L AB325, [id number] ####Loan Review Analyst: DOMENICA JARA ([id number])[facility])[address] [place] [address] Bacteria identified Cx Nom ( Bld)on 02-27-2025 Interpretation and review of laboratory results Normal [facility] Interpretation and review of laboratory results Normal [facility] CBC (HEMOGRAM)on 02-27-2025 Erythrocyte distribution width (RBC) [Ratio] 19.5 % High 11.5-15.0 [facility] Comment on above: Performed By: #### L AB294 ####Loan Review Analyst: DOMENICA JARA ([id number])[address] Hematocrit (Bld) [Volume fraction] 28.8 % Low 40.0-52.0 [facility] Comment on above: Performed By: #### L AB294 ####Loan Review Analyst: DOMENICA JARA ([id number])[facility] ([facility])[address] [place] [address] Hemoglobin (Bld) [Mass/Vol] 8.6 g/dL Low 13.0-18.0 [facility] Comment on above: Performed By: #### L AB294 ####Loan Review Analyst: DOMENICA JARA ([id number])[facility])[address] [place] [address] MCH (RBC) [Entitic mass] 28.7 pg Normal 26.0-34.0 [facility] Comment on above: Performed By: #### L AB294 ####Loan Review Analyst: DOMENICA JARA ([id number])[facility] ([facility])[address] [place] [address] MCHC 29.9 % Low 30.5-36.0 [facility] Comment on above: Performed By: #### L AB294 ####Loan Review Analyst: DOMENICA JARA ([id number])[facility] ([facility])[address] [place] [address] MCV (RBC) [Entitic vol] 96.0 fL Normal 77.0-99.0 S [facility] Comment on above: Performed By: #### L AB294 ####Loan Review Analyst: DOMENICA JARA ([id number])[facility] ([facility])[address] [place] [address] Platelet mean volume (Bld) [Entitic vol] 8.9 fL Low 9.0-12.7 [facility] Comment on above: Performed By: #### L AB294 ####Loan Review Analyst: DOMENICA JARA ([id number])[facility] ([facility])[address] [place] [address] Platelets (Bld) [#/Vol] 302 10*3/uL Normal 140-440 [facility] Comment on above: Performed By: #### L AB294 ####Loan Review Analyst: DOMENICA JARA ([id number])[facility] ([facility])[address] [place] [address] RBC (Bld) [#/Vol] 3.00 10*6/uL Low 4.40-5.90 [facility] Comment on above: Performed By: #### L AB294 ####Loan Review Analyst: DOMENICA JARA ([id number])[facility] ([facility])[address] [place] [address] WBC (Bld) [#/Vol] 7.9 10*3/uL Normal 3.6-10.7 [facility] Comment on above: Performed By: #### L AB294 ####Loan Review Analyst: DOMENICA JARA ([id number])[facility] ([address] CBC panel Auto (Bld)Ordered By: Brandy Ross on 02-27-2025 Erythrocyte distribution width (RBC) [Ratio] 19.5 % High 11.5 - 15.0 % [facility] Hematocrit (Bld) [Volume fraction] 28.8 % Low 40.0 - 52.0 % [facility] Hemoglobin (Bld) [Mass/Vol] 8.6 g/dL Low 13.0 - 18.0 g/dL [facility] Interpretation and review of laboratory results Abnormal [facility] MCH (RBC) [Entitic mass] 28.7 pg 26. 0 - 34.[address] [facility] MCHC (RBC) [Mass/Vol] 29.9 % Low 30.5 - 36.0 % [facility] MCV (RBC) [Entitic vol] 96 fL 77.0 - 99.[address] [facility] Platelet mean volume (Bld) [Entitic vol] 8.9 fL Low 9.0 - 12.[address] [facility] Platelets (Bld) [#/Vol] 302 10*3/uL 140 - 440 10*3/uL [facility] RBC (Bld) [#/Vol] 3 10*6/uL Low 4.40 - 5.9 0 10*6/uL [facility] WBC (Bld) [#/Vol] 7.9 10*3/uL 3.6 - 10.7 10*3/uL [facility] ECG 12-LEADon 02-27-2025 ECG 12-LEAD IMPRESSION: Sinus rhythm Left atrial enlargement RBBB and LPFB Abnrm T, consider ischemia, anterolateral lds Compared to ECG 01/19/2025 06:31:48 Prolonged QT interval no longer present Electronically Signed On 02-27-2025 16:08:17 EDT by Ochoa Rangel [facility] Laboratory - Coagulationon 0 02-27-2025 PT Coag (Bld) [Time] 13.7 s High 9.0 - 12.0 s [facility] Laboratory - Microbiology an d Antimicrobial susceptibilityon 02-27-2025 Bacteria identified Cx Nom (Bld) No growth at 5 days [facility] Bacteria identified Cx Nom (Bld) No growth at 5 days [facility] No Panel InformationOrdered By: Ochoa Guido on 02-27-2025 P Vandiver 76 degrees [facility] Work Phone: CO Interval 150 ms [facility] Work Phone: QRS Vandiver 92 degrees [facility] Work Phone: QRSD Interval 124 ms [facility] Work Phone: QT Interval 417 ms [facility] Work Phone: QTC Interval 482 ms [facility] Work Phone: T Wave Vandiver 95 degrees [facility] Work Phone: [facility] Work Phone: No Panel Informationon 02-[address] [facility] Interpretation and review of laboratory results Abnormal [facility] Nursing Noteon 02-27-2025 Nursing Note Normal [facility] Nursing Note Normal [facility] PROTHROMBIN TIMEon INR Coag (PPP) [Relative time] 1.3 {INR} High 0.9-1.1 [facility] Comment on above: Result Comment: Vaughn [...] Myocardial Infarction Performed By: #### L [id number], [id number] ####Loan Review Analyst: DOMENICA JARA ([id number])[facility] ([address] PT Coag (PPP) [Time] 13.7 s High 9.0-12.0 [facility] Comment on above: Performed By: #### L [id number], [id number] ####Loan Review Analyst: DOMENICA JARA ([id number])[facility] ([facility])[address] [place] [address] PT Coag (Bld) [Time]on 02-27 INR Coag (PPP) [Relative time] 1.3 {INR} High 0.9 - 1.1 [facility] Progress Noteon 02-27-[address] [facility] Progress Note [facility] Progress Note [facility] Progress Note [facility] Progress Note [facility] Progress Note [facility] Vital signsOrdered By: Ochoa Guido on 02-27-2025 Heart rate 80 /min bpm [facility] Work Phone: aPTT Coag (Bld) [Time]on aPTT Coag (PPP) [Time] 55.6 s High 20.0 - 30.5 s [facility] 30on 02-26-2025 30 Normal [facility] [id number] 02-26-2025 [id number] Normal [facility] [id number] 02-26-2025 [id number] Getting updated therapy notes. Want to skill him at [facility]. Started on IV antibiotics for aspiration pneumonia. Continues on a heparin gtt. . [facility] [id number] Updated notes sent to [facility] via [facility] per [facility] request. Await review and response regarding ability to accept. [facility] notified. [facility] 36on 02-26-2025 36 Normal [facility] CBC W/Diff, Automatedon Absolute Neut Normal 2.0-7.7 [facility] Comment on above: Order Comment: 413.2 Result Comment: KIMBER ENT DISCHARGED Performed By: #### L 500.4050, L100.0100, L300.3900 #### [facility] [address] [place], [address] HCT Normal 40-54 [facility] Comment on above: Order Comment: 413.2 Result Comment: KIMBER ENT DISCHARGED Performed By: #### L 500.4050, L100.0100, L300.3900 #### [facility] [address] [place], [address] HGB Normal 13.0-16.5 [facility] Comment on above: Order Comment: 413.2 Result Comment: KIMBER ENT DISCHARGED Performed By: #### L 500.4050, L100.0100, L300.3900 #### [facility] [address] [place], [address] MCH Normal 27.0-32.0 [facility] Comment on above: Order Comment: 413.2 Result Comment: KIMBER ENT DISCHARGED Performed By: #### L 500.4050, L100.0100, L300.3900 #### [facility] [address] [place], [address] MCHC Normal 32-36 [facility] Comment on above: Order Comment: 413.2 Result Comment: KIMBER ENT DISCHARGED Performed By: #### L 500.4050, L100.0100, L300.3900 #### [facility] [address] [place], [address] MCV Normal 80-94 [facility] Comment on above: Order Comment: 413.2 Result Comment: KIMBER ENT DISCHARGED Performed By: #### L 500.4050, L100.0100, L300.3900 #### [facility] [address] [place], [address] NEUT% Normal 47-70 [facility] Comment on above: Order Comment: 413.2 Result Comment: KIMBER ENT DISCHARGED Performed By: #### L 500.4050, L100.0100, L300.3900 #### [facility] [address] [place], [address] PLT Normal 150-450 [facility] Comment on above: Order Comment: 413.2 Result Comment: KIMBER ENT DISCHARGED Performed By: #### L 500.4050, L100.0100, L300.3900 #### [facility] [address] [place], [address] RBC Normal 4.6-6.2 [facility] Comment on above: Order Comment: 413.2 Result Comment: KIMBER ENT DISCHARGED Performed By: #### L 500.4050, L100.0100, L300.3900 #### [facility] [address] [place], [address] RDW CV Normal 11.6-14.6 [facility] Comment on above: Order Comment: 413.2 Result Comment: KIMBER ENT DISCHARGED Performed By: #### L 500.4050, L100.0100, L300.3900 #### [facility] [address] [place], [address] RDW SD Normal 35.1-43.9 [facility] Comment on above: Order Comment: 413.2 Result Comment: KIMBER ENT DISCHARGED Performed By: #### L 500.4050, L100.0100, L300.3900 #### [facility] [address] [place], [address] WBC Normal 4.4-11.0 [facility] Comment on above: Order Comment: 413.2 Result Comment: KIMBER ENT DISCHARGED Performed By: #### L 500.4050, L100.0100, L300.3900 #### [facility] [address] [place], [address] Comprehensive Metabolic Prof ilon 02-26-2025 ALB Normal 3.5-5.0 [facility] Comment on above: Order Comment: 413.2 Result Comment: KIMBER ENT DISCHARGED Performed By: #### L 500.4050, L100.0100, L300.3900 #### [facility] [address] [place], [address] ALK PHOS Normal 40-129 [facility] Comment on above: Order Comment: 413.2 Result Comment: KIMBER ENT DISCHARGED Performed By: #### L 500.4050, L100.0100, L300.3900 #### [facility] [address] [place], [address] ALT Normal <=46 [facility] Comment on above: Order Comment: 413.2 Result Comment: KIMBER ENT DISCHARGED Performed By: #### L 500.4050, L100.0100, L300.3900 #### [facility] [address] [place], [address] AST Normal <=37 [facility] Comment on above: Order Comment: 413.2 Result Comment: KIMBER ENT DISCHARGED Performed By: #### L 500.4050, L100.0100, L300.3900 #### [facility] [address] [place], [address] BUN Normal 4-19 [facility] Comment on above: Order Comment: 413.2 Result Comment: KIMBER ENT DISCHARGED Performed By: #### L 500.4050, L100.0100, L300.3900 #### [facility] [address] [place], [address] BUN/CRE Normal 10-20 [facility] Comment on above: Order Comment: 413.2 Result Comment: KIMBER ENT DISCHARGED Performed By: #### L 500.4050, L100.0100, L300.3900 #### [facility] [address] [place], [address] Calcium Normal 7.6-11.0 [facility] Comment on above: Order Comment: 413.2 Result Comment: KIMBER ENT DISCHARGED Performed By: #### L 500.4050, L100.0100, L300.3900 #### [facility] [address] [place], [address] CL Normal 98-108 [facility] Comment on above: Order Comment: 413.2 Result Comment: KIMBER ENT DISCHARGED Performed By: #### L 500.4050, L100.0100, L300.3900 #### [facility] [address] [place], [address] CO2 Normal 21.0-32.0 [facility] Comment on above: Order Comment: 413.2 Result Comment: KIMBER ENT DISCHARGED Performed By: #### L 500.4050, L100.0100, L300.3900 #### [facility] [address] [place], [address] CREAT,SERUM Normal 0.70-1.20 [facility] Comment on above: Order Comment: 413.2 Result Comment: KIMBER ENT DISCHARGED Performed By: #### L 500.4050, L100.0100, L300.3900 #### [facility] [address] [place], [address] eGFR Normal >60 [facility] Comment on above: Order Comment: 413.2 Result Comment: KIMBER ENT DISCHARGED Performed By: #### L 500.4050, L100.0100, L300.3900 #### [facility] [address] [place], [address] GAP Normal 5-15 [facility] Comment on above: Order Comment: 413.2 Result Comment: KIMBER ENT DISCHARGED Performed By: #### L 500.4050, L100.0100, L300.3900 #### [facility] [address] [place], [address] GLU Normal 70-99 [facility] Comment on above: Order Comment: 413.2 Result Comment: KIMBER ENT DISCHARGED Performed By: #### L 500.4050, L100.0100, L300.3900 #### [facility] [address] [place], [address] Potassium Normal 3.3-5.1 [facility] Comment on above: Order Comment: 413.2 Result Comment: KIMBER ENT DISCHARGED Performed By: #### L 500.4050, L100.0100, L300.3900 #### [facility] [address] [place], [address] T BILI Normal 0.00-1.30 [facility] Comment on above: Order Comment: 413.2 Result Comment: KIMBER ENT DISCHARGED Performed By: #### L 500.4050, L100.0100, L300.3900 #### [facility] [address] [place], [address] T PROT Normal 5.9-8.4 [facility] Comment on above: Order Comment: 413.2 Result Comment: KIMBER ENT DISCHARGED Performed By: #### L 500.4050, L100.0100, L300.3900 #### [facility] [address] [place], [address] Comprehensive Metabolic Profil Normal 133-145 [facility] Comment on above: Order Comment: 413.2 Result Comment: KIMBER ENT DISCHARGED Performed By: #### L 500.4050, L100.0100, L300.3900 #### [facility] [address] [place], [address] HIGH SENSITIVITY TROPONIN, Sarkis MEDRANO, SECOND TESTon 02-26-2025 2H TROPONIN HS (SERIAL 2ND TROPONIN) 80 ng/L High <=35 [facility] Comment on above: Result Comment: 2h t roponin (2nd troponin) samples collected between 1h 40 min and 2h and 20 min of the baseline collection time can be utilized to interpret delta troponins as per [facility] algorithms. Samples collected outside this timeframe need to be interpreted clinically.Rising or falling troponin delta between 2 ??? 15 ng/L as compared to baseline value requires a 3rd serial troponin Performed By: #### L [id number] ####Loan Review Analyst: DOMENICA JARA ([id number])[facility] ([facility])[address] [place] [address] HIGH SENSITIVITY TROPONIN, S ERIAL, THIRD TESTon 02-26-2025 4H TROPONIN HS (SERIAL 3RD TROPONIN) 75 ng/L High <=35 [facility] Comment on above: Result Comment: 4h t roponin (3rd troponin) samples collected between 1h 40 min and 2h and 20 min of the 2h troponin collection time can be utilized to interpret delta troponins as per [facility] algorithms. Samples collected outside this timeframe need to be interpreted clinically.Rising or falling troponin delta between 2 ??? 15 ng/L as compared to 2h troponin valuerequires further evaluation. Performed By: #### L [id number] ####Loan Review Analyst: DOMENICA JARA ([id number])[facility] ([facility])[address] [place] [address] Laboratory - Coagulationon 0 02-26-2025 PT Coag (Bld) [Time] 13.5 s High 9.0 - 12.0 s [facility] No Panel Informationon 02-26 4h Troponin HS (Serial 3rd Troponin) 75 ng/L High NINF - 35 ng/L [facility] Interpretation and review of laboratory results Abnormal [facility] 2h Troponin HS (Serial 2nd Troponin) 80 ng/L [facility]/L [facility] Interpretation and review of laboratory results Abnormal [facility] Interpretation and review of laboratory results Abnormal [facility] Troponin HS Serial Baseline 84 ng/L High NINF - 35 ng/L [facility] Interpretation and review of laboratory results Abnormal [facility] PT Coag (Bld) [Time]on 02-26 INR Coag (PPP) [Relative time] 1.3 {INR} High 0.9 - 1.1 [facility] Progress Noteon 02-26-2025 Progress Note Normal [facility] Progress Note Normal [facility] Progress Note Normal [facility] Progress Note Normal [facility] Progress Note Normal [facility] Progress Note Normal [facility] Prothrombin Time w/INRon INR Normal [facility] Comment on above: Order Comment: 413.2 Result Comment: KIMBER ENT DISCHARGED Performed By: #### L 500.4050, L100.0100, L300.3900 #### [facility] [address] [place], [address] PROTIME Normal 11.7-14.9 [facility] Comment on above: Order Comment: 413.2 Result Comment: KIMBER ENT DISCHARGED Performed By: #### L 500.4050, L100.0100, L300.3900 #### [facility] [address] [place], [address] aPTT Coag (Bld) [Time]on aPTT Coag (PPP) [Time] 48.2 s High 20.0 - 30.5 s [facility] 30on 02-25-2025 30 Normal [facility] 30 Normal [facility] APTTon 02-25-2025 aPTT Coag (Bld) [Time] 48.2 s High 20.0-30.5 [facility] Comment on above: Result Comment: ARPAN Kaplan COMMENTS:NOTE: The therapeutic time for Heparin anticoagulation, based on Xa activity inhibition, is an APTT of 46-80 seconds. Performed By: #### L AB325, [id number] ####Loan Review Analyst: DOMENICA JARA ([id number])[address] aPTT Coag (Bld) [Time] 49.5 s High 20.0-30.5 [facility] Comment on above: Result Comment: ARPAN Kaplan COMMENTS:NOTE: The therapeutic time for Heparin anticoagulation, based on Xa activity inhibition, is an APTT of 46-80 seconds. Performed By: #### L [id number], [id number] ####Loan Review Analyst: DOMENICA JARA ([id number])[address] CBC (HEMOGRAM)on 02-25-2025 Erythrocyte distribution width (RBC) [Ratio] 19.9 % High 11.5-15.0 [facility] Comment on above: Performed By: #### L [id number] ####Loan Review Analyst: DOMENICA JARA ([id number])[facility])[address] [place] [address] Hematocrit (Bld) [Volume fraction] 24.1 % Low 40.0-52.0 [facility] Comment on above: Performed By: #### L [id number] ####Loan Review Analyst: DOMENICA JARA ([id number])[facility])[address] [place] [address] Hemoglobin (Bld) [Mass/Vol] 7.6 g/dL Low 13.0-18.0 [facility] Comment on above: Performed By: #### L [id number] ####Loan Review Analyst: DOMENICA JARA ([id number])[facility])[address] [place] [address] MCH (RBC) [Entitic mass] 29.3 pg Normal 26.0-34.0 [facility] Comment on above: Performed By: #### L [id number] ####Loan Review Analyst: DOMENICA JARA ([id number])[facility] ([facility])[address] [place] [address] MCHC 31.5 % Normal 30.5-36.0 [facility] Comment on above: Performed By: #### L [id number] ####Loan Review Analyst: DOMENICA JARA ([id number])[facility])[address] [place] [address] MCV (RBC) [Entitic vol] 93.1 fL Normal 77.0-99.0 [facility] Comment on above: Performed By: #### L [id number] ####Loan Review Analyst: DOMENICA JARA ([id number])[facility])[address] [place] [address] Platelet mean volume (Bld) [Entitic vol] 8.9 fL Low 9.0-12.7 [facility] Comment on above: Performed By: #### L [id number] ####Loan Review Analyst: DOMENICA JARA ([id number])[facility] ([address] Platelets (Bld) [#/Vol] 280 10*3/uL Normal 140-440 [facility] Comment on above: Performed By: #### L [id number] ####Loan Review Analyst: DOMENICA JARA ([id number])[facility])[address] [place] [address] RBC (Bld) [#/Vol] 2.59 10*6/uL Low 4.40-5.90 [facility] Comment on above: Performed By: #### L [id number] ####Loan Review Analyst: DOMENICA JARA ([id number])[address] WBC (Bld) [#/Vol] 7.5 10*3/uL Normal 3.6-10.7 [facility] Comment on above: Performed By: #### L [id number] ####Loan Review Analyst: DOMENICA JARA ([id number])[facility])[address] [place] [address] CBC panel Auto (Bld)on 02-25 Erythrocyte distribution width (RBC) [Ratio] 19.9 % High 11.5 - 15.0 % [facility] Hematocrit (Bld) [Volume fraction] 24.1 % Low 40.0 - 52.0 % [facility] Hemoglobin (Bld) [Mass/Vol] 7.6 g/dL Low 13.0 - 18.0 g/dL [facility] Interpretation and review of laboratory results Abnormal [facility] MCH (RBC) [Entitic mass] 29.3 pg 26. 0 - 34.[address] [facility] MCHC (RBC) [Mass/Vol] 31.5 % 30.5 - 36.0 % [facility] MCV (RBC) [Entitic vol] 93.1 fL 77.0 - 99.[address] [facility] Platelet mean volume (Bld) [Entitic vol] 8.9 fL Low 9.0 - 12.[address] [facility] Platelets (Bld) [#/Vol] 280 10*3/uL 140 - 440 10*3/uL [facility] RBC (Bld) [#/Vol] 2.59 10*6/uL Low 4.40 - 5.9 0 10*6/uL [facility] WBC (Bld) [#/Vol] 7.5 10*3/uL 3.6 - 10.7 10*3/uL [facility] HIGH SENSITIVITY TROPONIN, S ERIAL BASELINEon 02-25-2025 TROPONIN HS SERIAL BASELINE 84 ng/L High <=35 [facility] Comment on above: Result Comment: In i ndividuals presenting with symptoms > 2h, a baseline troponin <= 5 ng/L suggests acutecardiac injury is unlikely and further serial testing is generally not indicated. Performed By: #### L [id number] ####Loan Review Analyst: DOMENICA JARA ([id number])[address] Laboratory - Coagulationon 0 02-25-2025 PT Coag (Bld) [Time] 13.7 s High 9.0 - 12.0 s [facility] No Panel Informationon 02-25 Interpretation and review of laboratory results Abnormal [facility] Nursing Noteon 02-25-2025 Nursing Note 2322- Notified Dr. Hathaway of patient complaint of SOB and worsening chest pain that he described as dull and tight. Vitals WDL. STAT EKG ordered, patient given Nitrostat, and troponin sent down. 2330- Notified TALLOW PUMPER to assess the patient. Normal [facility] PROTHROMBIN TIMEon INR Coag (PPP) [Relative time] 1.3 {INR} High 0.9-1.1 [facility] Comment on above: Result Comment: Vaughn [...] Myocardial Infarction Performed By: #### L AB325, [id number] ####Loan Review Analyst: DOMENICA JARA ([id number])[facility])[address] [place] [address] PT Coag (PPP) [Time] 13.5 s High 9.0-12.0 [facility] Comment on above: Performed By: #### L AB325, [id number] ####Loan Review Analyst: DOMENICA JARA ([id number])[facility])[address] [place] [address] INR Coag (PPP) [Relative time] 1.3 {INR} High 0.9-1.1 [facility] Comment on above: Result Comment: Vaughn [...] Myocardial Infarction Performed By: #### Tameka AB320, [id number] ####Loan Review Analyst: DOMENICA JARA ([id number])[facility])[address] [place] [address] PT Coag (PPP) [Time] 13.7 s High 9.0-12.0 [facility] Comment on above: Performed By: #### Tameka AB320, [id number] ####Loan Review Analyst: DOMENICA JARA ([id number])[facility])[address] [place] [address] [place] PT Coag (Bld) [Time]on 02-25 INR Coag (PPP) [Relative time] 1.3 {INR} High 0.9 - 1.1 [facility] Progress Noteon 02-25-2025 Progress Note Normal [facility] Progress Note Normal [facility] Progress Note Normal [facility] Progress Note Normal [facility] aPTT Coag (Bld) [Time]on aPTT Coag (PPP) [Time] 49.5 s High 20.0 - 30.5 s [facility] 30on 02-24-2025 30 Normal [facility] 30 Normal [facility] APTTon 02-24-2025 aPTT Coag (Bld) [Time] 54.7 s High 20.0-30.5 [facility] Comment on above: Result Comment: ARPAN Kaplan COMMENTS:NOTE: The therapeutic time for Heparin anticoagulation, based on Xa activity inhibition, is an APTT of 46-80 seconds. Performed By: #### L AB325 ####Loan Review Analyst: DOMENICA JARA ([id number])[facility] ([facility])[address] [place] [id number] [place] [address] aPTT Coag (Bld) [Time] 61.0 s High 20.0-30.5 [facility] Comment on above: Result Comment: ARPAN Kaplan COMMENTS:NOTE: The therapeutic time for Heparin anticoagulation, based on Xa activity inhibition, is an APTT of 46-80 seconds. Performed By: #### L AB320, [id number] ####Loan Review Analyst: DOMENICA JARA ([id number])[facility] ([facility])[address] [place] [id number] [place] [address] Bacteria identified Aer cx N om (Lower resp)Ordered By: Corey Pabon on 02-24-2025 Gram Stain Result Many Polymorphonuclear leukocytes per low power field Abnormal [facility] Gram Stain Result Few Epithelial cells per low power field Abnormal [facility] Gram Stain Result Positive [facility]normal [facility] Gram Stain Result Negative Abnormal [facility] Gram Stain Result Few Yeast Abnormal [facility] Interpretation and review of laboratory results Abnormal [facility] HBV surface Ab IA Qnon 02-24 [facility] HBV surface Ag IA Qlon 02-24 Interpretation and review of laboratory results Normal [facility] HEPATITIS B SURFACE ANTIBODY on 02-24-2025 HEPATITIS B VIRUS SURFACE AB <8.0 Normal [facility] Comment on above: Result Comment: ARPAN Kaplan COMMENTS:Interpretation:<8.0 Non-Reactive8.0-11.9 Equivocal>= 12.0 Ab DetectedNote: If an equivocal result is interpreted, an antibody status is unable to be determined. Collect new specimen if clinically indicated. Performed By: #### L [id number], [id number] ####Loan Review Analyst: DOMENICA JARA ([id number])[facility] ([facility])[address] [place] [address] HEPATITIS B SURFACE ANTIGENo n 02-24-2025 HEPATITIS B VIRUS SURFACE AG Not detected Normal Not Detected [facility] Comment on above: Performed By: #### L [id number], [id number] ####Loan Review Analyst: DOMENICA JARA ([id number])[facility] ([facility])[address] [place] [address] Laboratory - Coagulationon 0 02-24-2025 PT Coag (Bld) [Time] 13.5 s High 9.0 - 12.0 s [facility] Laboratory - Drug toxicology on 02-24-2025 Vancomycin trough [Mass/Vol] 23.4 ug/mL [facility] - Microbiology an d Antimicrobial susceptibilityon 02-24-2025 HBV surface Ab IA Qn mIU/mL [facility] HBV surface Ag IA Ql Not detected Not Detected [facility] - Microbiology an d Antimicrobial susceptibilityOrdered By: Corey Pabon on 02-24-2025 Bacteria identified Aer cx Nom (Lower resp) Few respiratory ila present. [facility] Bacteria identified Aer cx Nom (Lower resp) Moderate Klebsiella oxytoca Abnormal [facility] No Panel Informationon 02-24 [facility] Interpretation and review of laboratory results Abnormal [facility] Nursing Noteon 02-24-2025 Nursing Note Normal [facility] PROTHROMBIN TIMEon INR Coag (PPP) [Relative time] 1.3 {INR} High 0.9-1.1 [facility] Comment on above: Result Comment: Vaughn [...] Myocardial Infarction Performed By: #### L AB320, [id number] ####Loan Review Analyst: DOMENICA JARA ([id number])[facility] [place] [address] PT Coag (PPP) [Time] 13.5 s High 9.0-12.0 [facility] Comment on above: Performed By: #### Tameka AB320, [id number] ####Loan Review Analyst: DOMENICA JARA ([id number])[facility] ([facility])[address] [place] [address] PT Coag (Bld) [Time]on 02-24 INR Coag (PPP) [Relative time] 1.3 {INR} High 0.9 - 1.1 [facility] Progress Noteon 02-24-2025 Progress Note Vancomycin therapy has been discontinued by Hussain Quintana on 02/24. Thank you for the consult. Pharmacy signing off for vancomycin dosing. Marissa Iglesias, PharmD, Date: 02/24/25 Time: 4:08 PM Normal [facility] Progress Note Normal [facility] Progress Note Normal [facility] Progress Note [facility] Note [facility] VANCOMYCIN, AUC TIMED DOSING on 02-24-2025 VANCOMYCIN, AUC 23.4 ug/mL Normal [facility] Comment on above: Result Comment: ARPAN Kaplan COMMENTS:Please draw random level at least >4 hours after the end of hemodialysis.Toxicity is seen at concentrations >80-100 ug/mLTherapeutic (Peak) range: 20-40Therapeutic (Trough) range: 5-10 Performed By: #### L AB39 ####Loan Review Analyst: DOMENICA JARA ([id number])[facility] ([facility])[address] [place] [address] Vancomycin trough [Mass/Vol] on 02-24-2025 [facility] aPTT Coag (Bld) [Time]on aPTT Coag (PPP) [Time] 54.7 s High 20.0 - 30.[address] [facility] Interpretation and review of laboratory results Abnormal [facility] aPTT Coag (PPP) [Time] 61 s High 20.0 - 30.5 s [facility] [id number] 02-23-2025 [id number] Normal [facility] 36on 02-23-2025 36 Called LM to call back and schedule CT and hospital follow up with any ARMIN Normal [facility] 36 Hello, can we please schedule a 6-week CT scan for this patient and a follow-up appointment after this? Thank you Normal [facility] APTTon 02-23-2025 aPTT Coag (Bld) [Time] 49.3 s High 20.0-30.5 [facility] Comment on above: Result Comment: ARPAN Kaplan COMMENTS:NOTE: The therapeutic time for Heparin anticoagulation, based on Xa activity inhibition, is an APTT of 46-80 seconds. Performed By: #### L AB325, [id number] ####Loan Review Analyst: DOMENICA JARA ([phone])[facility])[address] [place] [address] CBC (HEMOGRAM)on 02-23-2025 Erythrocyte distribution width (RBC) [Ratio] 19.7 % High 11.5-15.0 [facility] Comment on above: Performed By: #### L AB294 ####Loan Review Analyst: DOMENICA JARA ([id number])[facility])[address] [place] [address] Hematocrit (Bld) [Volume fraction] 27.9 % Low 40.0-52.0 [facility] Comment on above: Performed By: #### L AB294 ####Loan Review Analyst: DOMENICA JARA ([id number])[facility] ([facility])[address] [place] [address] Hemoglobin (Bld) [Mass/Vol] 8.6 g/dL Low 13.0-18.0 [facility] Comment on above: Performed By: #### L AB294 ####Loan Review Analyst: DOMENICA JARA ([id number])[facility])[address] [place] [address] MCH (RBC) [Entitic mass] 28.7 pg Normal 26.0-34.0 [facility] Comment on above: Performed By: #### L AB294 ####Loan Review Analyst: DOMENICA JARA ([id number])[facility])[address] [place] [address] MCHC 30.8 % Normal 30.5-36.0 [facility] Comment on above: Performed By: #### L AB294 ####Loan Review Analyst: DOMENICA JARA ([id number])[facility])[address] [place] [address] MCV (RBC) [Entitic vol] 93.0 fL Normal 77.0-99.0 [facility] Comment on above: Performed By: #### L AB294 ####Loan Review Analyst: DOMENICA JARA ([id number])[facility])[address] [place] [address] Platelet mean volume (Bld) [Entitic vol] 8.9 fL Low 9.0-12.7 [facility] Comment on above: Performed By: #### L AB294 ####Loan Review Analyst: DOMENICA JARA ([id number])[facility])[address] [place] [address] Platelets (Bld) [#/Vol] 316 10*3/uL Normal 140-440 [facility] Comment on above: Performed By: #### L AB294 ####Loan Review Analyst: DOMENICA JARA ([id number])[facility])[address] [place] [address] RBC (Bld) [#/Vol] 3.00 10*6/uL Low 4.40-5.90 [facility] Comment on above: Performed By: #### L AB294 ####Loan Review Analyst: DOMENICA JARA ([id number])[facility])[address] [place] [address] WBC (Bld) [#/Vol] 8.6 10*3/uL Normal 3.6-10.7 [facility] Comment on above: Performed By: #### L AB294 ####Loan Review Analyst: DOMENICA JARA ([id number])[facility])[address] [place] [address] CBC panel Auto (Bld)on 02-23 Erythrocyte distribution width (RBC) [Ratio] 19.7 % High 11.5 - 15.0 % [facility] Hematocrit (Bld) [Volume fraction] 27.9 % Low 40.0 - 52.0 % [facility] Hemoglobin (Bld) [Mass/Vol] 8.6 g/dL Low 13.0 - 18.0 g/dL [facility] Interpretation and review of laboratory results Abnormal [facility] MCH (RBC) [Entitic mass] 28.7 pg 26. 0 - 34.[address] [facility] MCHC (RBC) [Mass/Vol] 30.8 % 30.5 - 36.0 % [facility] MCV (RBC) [Entitic vol] 93 fL 77.0 - 99.[address] [facility] Platelet mean volume (Bld) [Entitic vol] 8.9 fL Low 9.0 - 12.[address] [facility] Platelets (Bld) [#/Vol] 316 10*3/uL 140 - 440 10*3/uL [facility] RBC (Bld) [#/Vol] 3 10*6/uL Low 4.40 - 5.9 0 10*6/uL [facility] WBC (Bld) [#/Vol] 8.6 10*3/uL 3.6 - 10.7 10*3/uL [facility] COMPREHENSIVE METABOLIC PANE Victor M 02-23-2025 Albumin [Mass/Vol] 1.9 g/dL Low 3.5-5.0 [facility] Comment on above: Performed By: #### L AB113, LAB17, [id number] ####Loan Review Analyst: DOMENICA JARA ([id number])[facility] ([facility])[address] [place] [address] ALP [Catalytic activity/Vol] 136 U/L Normal 40-150 [facility] Comment on above: Performed By: #### L AB113, LAB17, [id number] ####Loan Review Analyst: DOMENICA JARA ([id number])[facility] ([facility])[address] [place] [address] [place] ALT [Catalytic activity/Vol] 10 U/L Normal <40 [facility] Comment on above: Performed By: #### Tameka ABAruna, LAB17, [id number] ####Loan Review Analyst: DOMENICA JARA ([id number])[facility] ([facility] [place] [address] Anion gap [Moles/Vol] 11 mmol/L Normal 3-13 [facility] Comment on above: Performed By: #### L AB113, LAB17, [id number] ####Loan Review Analyst: DOMENICA JARA ([id number])[facility] ([facility])[address] [place] [address] AST [Catalytic activity/Vol] 37 U/L High <34 [facility] Comment on above: Performed By: #### Tameka ABAruna, LAB17, [id number] ####Loan Review Analyst: DOMENICA JARA ([id number])[facility] ([facility])[address] [place] [address] Bilirubin [Mass/Vol] 0.6 mg/dL Normal <1.2 [facility] Comment on above: Performed By: #### Tameka ABAruna, LAB17, [id number] ####Loan Review Analyst: DOMENICA JARA ([id number])[facility] ([facility])[address] [place] [address] Calcium [Mass/Vol] 9.2 mg/dL Normal 8.4-10.2 [facility] Comment on above: Performed By: #### Tameka ABAruna, LAB17, [id number] ####Loan Review Analyst: DOMENICA JARA ([id number])[facility] ([facility])[address] [place] [address] [place] Chloride [Moles/Vol] 99 mmol/L Normal 98-107 [facility] Comment on above: Performed By: #### L AB113, LAB17, [id number] ####Loan Review Analyst: DOMENICA JARA ([id number])[facility] ([facility])[address] [place] [address] [place] CO2 [Moles/Vol] 25 mmol/L Normal 22-29 [facility] Comment on above: Performed By: #### Tameka ABAruna, LAB17, [id number] ####Loan Review Analyst: DOMENICA JARA ([id number])[facility] ([facility])[address] [place] [address] Creatinine [Mass/Vol] 2.78 mg/dL High 0.72-1.25 [facility] Comment on above: Performed By: #### Tameka ABAruna, LAB17, [id number] ####Loan Review Analyst: DOMENICA JARA ([id number])[facility] ([facility])[address] [place] [address] GLOMERULAR FILTRATION RATE ML/MIN/1.73 SQ M.PREDICTED 25.4 mL/min/1.73m*2 Low >60.0 [facility] Comment on above: Result Comment: Calc ulation based on the Chronic Kidney Disease Epidemiology Collaboration (CKD-EPI) equation refit without adjustment for race Performed By: #### Tameka GIMENEZ, LAB17, [id number] ####Loan Review Analyst: DOMENICA JARA ([id number])[facility] ([facility])[address] [place] [address] Glucose [Mass/Vol] 110 mg/dL High 74-100 [facility] Comment on above: Performed By: #### Tameka ABAruna, LAB17, [id number] ####Loan Review Analyst: DOMENICA JARA ([id number])[facility])[address] [place] [address] Potassium [Moles/Vol] 4.1 mmol/L Normal 3.5-5.1 [facility] Comment on above: Result Comment: [facility] potassium values may be up to 0.5 mmol/L lower than serum values. Performed By: #### Tameka AB113, LAB17, [id number] ####Loan Review Analyst: DOMENICA JARA ([id number])[facility])[address] [place] [address] Protein [Mass/Vol] 7.1 g/dL Normal 6.4-8.3 [facility] Comment on above: Performed By: #### L AB113, LAB17, [id number] ####Loan Review Analyst: DOMENICA JARA ([id number])[facility] ([facility])[address] [place] [address] Sodium [Moles/Vol] 135 mmol/L Low 136-145 [facility] Comment on above: Performed By: #### L AB113, LAB17, [id number] ####Loan Review Analyst: DOMENICA JARA ([id number])[facility] ([facility])[address] [place] [address] Urea nitrogen [Mass/Vol] 21 mg/dL Normal 9-23 [facility] Comment on above: Performed By: #### L AB113, LAB17, [id number] ####Loan Review Analyst: DOMENICA JARA ([id number])[facility] ([facility])[address] [place] [address] Comprehensive metabolic 1998 panelOrdered By: Jarred José on 02-23-2025 Albumin [Mass/Vol] 1.9 g/dL Low 3.5 - 5.0 g/dL [facility] ALP [Catalytic activity/Vol] 136 U/L 40 - 150 U/L [facility] ALT [Catalytic activity/Vol] 10 U/L NINF - 40 U/L [facility] Anion gap [Moles/Vol] 11 mmol/L 3 - 13 mmol/L [facility] AST [Catalytic activity/Vol] 37 U/L [facility]L [facility] Bilirubin [Mass/Vol] 0.6 mg/dL NINF - 1.2 mg/dL [facility] Calcium [Mass/Vol] 9.2 mg/dL 8.4 - 10. 2 mg/dL [facility] Chloride [Moles/Vol] 99 mmol/L 98 - 10 7 mmol/L [facility] CO2 [Moles/Vol] 25 mmol/L 22 - 29 mmol/L [facility] Creatinine [Mass/Vol] 2.78 mg/dL High 0.72 - 1.25 mg/dL [facility] GFR/1.73 sq M.predicted (S/P/Bld) [Vol rate/Area] 25.4 mL/min Low - PINF [facility] Glucose [Mass/Vol] 110 mg/dL High 74 - 100 mg/dL [facility] Interpretation and review of laboratory results Abnormal [facility] Potassium [Moles/Vol] 4.1 mmol/L 3.5 - 5.1 mmol/L [facility] Protein [Mass/Vol] 7.1 g/dL 6.4 - 8.3 g/dL [facility] Sodium [Moles/Vol] 135 mmol/L Low 136 - 145 mmol/L [facility] Urea nitrogen [Mass/Vol] 21 mg/dL 9 - 23 mg/d L [facility] Consulton 02-23-2025 Consult Normal [facility] Laboratory - Chemistry and C hemistry - challengeon 02-23-2025 Magnesium [Mass/Vol] 2 mg/dL 1.6 - 2 .6 mg/dL [facility] Laboratory - Coagulationon 0 02-23-2025 PT Coag (Bld) [Time] 14 s High 9.0 - 12.0 s [facility] MAGNESIUMon 02-23-2025 Magnesium [Mass/Vol] 2.0 mg/dL Normal 1.6-2.6 [facility] Comment on above: Result Comment: ARPAN Kaplan COMMENTS:Higher values can be expected in females during menses. Performed By: #### L AB113, LAB17, [id number] ####Loan Review Analyst: DOMENICA JARA ([id number])[facility] [place] [address] Magnesium [Mass/Vol]on 02-23 [facility] No Panel Informationon 02-23 Interpretation and review of laboratory results Normal [facility] Interpretation and review of laboratory results Abnormal [facility] Nursing Noteon 02-23-2025 Nursing Note Normal [facility] Nursing Note Normal [facility] PHOSPHORUSon 02-23-2025 Phosphate [Mass/Vol] 2.6 mg/dL Normal 2.3-4.7 [facility] Comment on above: Performed By: #### L AB113, LAB17, [id number] ####Loan Review Analyst: DOMENICA JARA ([id number])[facility] ([facility])[address] [place] [address] PROTHROMBIN TIMEon INR Coag (PPP) [Relative time] 1.3 {INR} High 0.9-1.1 [facility] Comment on above: Result Comment: Vaughn [...] Myocardial Infarction Performed By: #### L AB325, [id number] ####Loan Review Analyst: DOMENICA JARA ([id number])[facility] ([facility])[address] [place] [address] PT Coag (PPP) [Time] 14.0 s High 9.0-12.0 [facility] [employer] [facility] Comment on above: Performed By: #### L AB325, [id number] ####Loan Review Analyst: DOMENICA JARA ([id number])[facility] ([employer])[address] [place] [address] PT Coag (Bld) [Time]on 02-23 INR Coag (PPP) [Relative time] 1.3 {INR} High 0.9 - 1.1 [facility] [employer] Phosphate [Moles/Vol]on 01-27 Phosphate [Mass/Vol] 2.6 mg/dL 2.3 - 4 .7 mg/dL [facility] Progress Noteon 02-23-2025 Progress Note [address] [facility] Progress Note Normal [facility] Progress Note Normal [facility] Progress Note Normal [facility] Progress Note Normal [facility] Progress Note Normal [facility] US Heart TransthoracicOrdere d By: Daryn Chowdary on 02-23-2025 Aortic valve Mean systole pressure gradient by US.doppler derived full Bernoulli 10 mmHg [facility] Work Phone: Aortic valve Orifice area by US 3.1 cm2 [facility] [employer] Work Phone: Aortic valve Peak systolic flow by US.doppler 1.4 m/s [facility] Work Phone: Ascending Aorta 3.5 cm [facility] Work Phone: Ascending Aorta Index 1.99 cm/m2 [facility] Work Phone: AV Area by Peak Velocity 1.3 cm2 [facility] Work Phone: AV Area by VTI 1.5 cm2 [facility] Work Phone: AV AT 66.6 ms [facility] Work Phone: AV Peak Gradient 20 mmHg [facility] Work Phone: AV Peak Velocity 2.3 m/s [facility] Work Phone: AV Velocity Ratio 0.39 [facility] Work Phone: AV VTI 39.1 cm [facility] Work Phone: MALU/BSA Peak Velocity 0.7 cm2/m2 [facility] Work Phone: MALU/BSA VTI 0.9 cm2/m2 [facility] Work Phone: E/E' Lateral 21.43 [facility] Work Phone: E/E' Ratio (Averaged) 25.71 [facility] Work Phone: E/E' Septal 30 [facility] Work Phone: Est. RA Pressure 15 mmHg [facility] Work Phone: Fractional Shortening 2D 31 % 28 - 44 % [facility] Work Phone: Interpretation and review of laboratory results Abnormal [facility] Work Phone: IVC Diameter 2.5 cm [facility] Work Phone: IVSd 1.6 cm Abnormal 0.6 - 1.0 cm [facility] Work Phone: LA Diameter 3.1 cm [facility] Work Phone: LA Size Index 1.76 [...] LV E' Lateral Velocity 7 cm/s [facility] Work Phone: LV E' Septal Velocity 5 cm/s [facility] Work Phone: LV Mass 2D 201 g 88 - 224 g [facility] Work Phone: LV Mass 2D Index 114.2 g/m2 49 - 115 g/m2 [facility] Work Phone: LV RWT Ratio 0.78 [facility] Work Phone: LVIDd 3.6 cm Abnormal 4.2 - 5.9 cm [facility] Work Phone: LVIDd Index 2.05 cm/m2 [facility] Work Phone: LVIDs 2.5 cm [facility] Work Phone: LVIDs Index 1.42 cm/m2 [facility] Work Phone: LVOT Cardiac Output 5.3 liter/minute [facility] Work Phone: LVOT Diameter 2 cm [facility] Work Phone: LVOT Mean Gradient 2 mmHg [facility] Work Phone: LVOT Peak Gradient 3 mmHg [facility] Work Phone: LVOT Peak Velocity 0.9 m/s [facility] Work Phone: LVOT Stroke Volume Index 33.4 mL/m2 [facility] Work Phone: LVOT SV 58.7 ml [facility] Work Phone: LVOT VTI 18.7 cm [facility] Work Phone: LVOT:AV VTI Index 0.48 [facility] Work Phone: LVPWd 1.4 cm Abnormal 0.6 - 1.0 cm [facility] Work Phone: MV A Velocity 0.97 m/s [facility] Work Phone: MV Area by PHT 3 cm2 [facility] Work Phone: MV Area by VTI 1.3 cm2 [facility] Work Phone: MV E Velocity 1.5 m/s [facility] Work Phone: MV E Wave Deceleration Time 250.1 ms [facility] Work Phone: MV E/A 1.55 [facility] Work Phone: MV Max Velocity 2 m/s [facility] Work Phone: MV Mean Gradient 7 mmHg [facility] Work Phone: MV Mean Velocity 1.2 m/s [facility] Work Phone: MV Peak Gradient 16 mmHg [facility] Work Phone: MV PHT 73.9 ms [facility] Work Phone: MV VTI 44.1 cm [facility] Work Phone: MV:LVOT VTI Index 2.36 [...] [facility] Work Phone: US Heart Transthoracicon [facility] aPTT Coag (Bld) [Time]on aPTT Coag (PPP) [Time] 49.3 s High 20.0 - 30.5 s [facility] Health 30on 02-22-2025 30 Normal [facility] [id number] 02-22-2025 [id number] Normal [facility] [id number] Updated notes sent to [facility] via [facility] per TCC request. Await review and response regarding ability to accept. TCC notified. Normal [facility] APTTon 02-22-2025 aPTT Coag (Bld) [Time] 52.1 s High 20.0-30.5 [facility] Comment on above: Result Comment: ARPAN Kaplan COMMENTS:NOTE: The therapeutic time for Heparin anticoagulation, based on Xa activity inhibition, is an APTT of 46-80 seconds. Performed By: #### L AB325 ####Loan Review Analyst: DOMENICA JARA ([phone])[facility])[address] [place] [address] aPTT Coag (Bld) [Time] 54.9 s High 20.0-30.5 [facility] Comment on above: Result Comment: ARPAN Kaplan COMMENTS:NOTE: The therapeutic time for Heparin anticoagulation, based on Xa activity inhibition, is an APTT of 46-80 seconds. Performed By: #### L AB325, [id number] ####Loan Review Analyst: DOMENICA JARA ([id number])[facility])[address] [place] [address] BLOOD CULTUREon 02-22-2025 Bacteria identified Cx Nom (Bld) Normal [facility] Comment on above: Performed By: #### L AB462 ####Loan Review Analyst: DOMENICA JARA ([id number])[facility])[address] [place] [address] Bacteria identified Cx Nom (Bld) Normal [facility] Comment on above: Performed By: #### L AB462 ####Loan Review Analyst: DOMENICA JARA ([id number])[facility])[address] [place] [address] CBC (HEMOGRAM)on 02-22-2025 Erythrocyte distribution width (RBC) [Ratio] 19.4 % High 11.5-15.0 [facility] Comment on above: Performed By: #### L AB294 ####Loan Review Analyst: DOMENICA JARA ([id number])[facility])[address] [place] [address] Hematocrit (Bld) [Volume fraction] 24.5 % Low 40.0-52.0 [facility] Comment on above: Performed By: #### L AB294 ####Loan Review Analyst: DOMENICA JARA ([id number])[facility])[address] [place] [address] Hemoglobin (Bld) [Mass/Vol] 7.8 g/dL Low 13.0-18.0 [facility] Comment on above: Performed By: #### L AB294 ####Loan Review Analyst: DOMENICA JARA ([id number])[facility] ([facility])[address] [place] [address] MCH (RBC) [Entitic mass] 29.0 pg Normal 26.0-34.0 [facility] Comment on above: Performed By: #### L AB294 ####Loan Review Analyst: DOMENICA JARA ([id number])[facility])[address] [place] [address] MCHC 31.8 % Normal 30.5-36.0 [facility] Comment on above: Performed By: #### L AB294 ####Loan Review Analyst: DOMENICA JARA ([id number])[facility] ([facility])[address] [place] [address] MCV (RBC) [Entitic vol] 91.1 fL Normal 77.0-99.0 [facility] Comment on above: Performed By: #### L AB294 ####Loan Review Analyst: DOMENICA JARA ([id number])[facility])[address] [place] [address] Platelet mean volume (Bld) [Entitic vol] 8.9 fL Low 9.0-12.7 [facility] Comment on above: Performed By: #### L AB294 ####Loan Review Analyst: DOMENICA JARA ([id number])[facility])[address] [place] [address] Platelets (Bld) [#/Vol] 282 10*3/uL Normal 140-440 [facility] Comment on above: Performed By: #### L AB294 ####Loan Review Analyst: DOMENICA JARA ([id number])[facility] ([facility])[address] [place] [address] RBC (Bld) [#/Vol] 2.69 10*6/uL Low 4.40-5.90 [facility] Comment on above: Performed By: #### L AB294 ####Loan Review Analyst: DOMENICA JARA ([id number])[facility] ([facility])[address] [place] [address] WBC (Bld) [#/Vol] 9.0 10*3/uL Normal 3.6-10.7 [facility] Comment on above: Performed By: #### L AB294 ####Loan Review Analyst: DOMENICA JARA ([id number])[facility] ([facility])[address] [place] [address] CBC panel Auto (Bld)on 02-22 Erythrocyte distribution width (RBC) [Ratio] 19.4 % High 11.5 - 15.0 % [facility] Hematocrit (Bld) [Volume fraction] 24.5 % Low 40.0 - 52.0 % [facility] Hemoglobin (Bld) [Mass/Vol] 7.8 g/dL Low 13.0 - 18.0 g/dL [facility] Interpretation and review of laboratory results Abnormal [facility] MCH (RBC) [Entitic mass] 29 pg 26. 0 - 34.[address] [facility] MCHC (RBC) [Mass/Vol] 31.8 % 30.5 - 36.0 % [facility] MCV (RBC) [Entitic vol] 91.1 fL 77.0 - 99.[address] [facility] Platelet mean volume (Bld) [Entitic vol] 8.9 fL Low 9.0 - 12.[address] [facility] Platelets (Bld) [#/Vol] 282 10*3/uL 140 - 440 10*3/uL [facility] RBC (Bld) [#/Vol] 2.69 10*6/uL Low 4.40 - 5.9 0 10*6/uL [facility] WBC (Bld) [#/Vol] 9 10*3/uL 3.6 - 10.7 10*3/uL [facility] COMPREHENSIVE METABOLIC PANE Victor M 02-22-2025 Albumin [Mass/Vol] 1.8 g/dL Low 3.5-5.0 [facility] Comment on above: Performed By: #### Tameka KWONG, LAB17, [id number] ####Loan Review Analyst: DOMENICA JARA ([id number])[facility] ([facility])[address] [place] [address] ALP [Catalytic activity/Vol] 120 U/L Normal 40-150 [facility] Comment on above: Performed By: #### Tameka KWONG, LAB17, [id number] ####Loan Review Analyst: DOMENICA JARA ([id number])[facility] ([facility])[address] [place] [address] ALT [Catalytic activity/Vol] 9 U/L Normal <40 [facility] Comment on above: Performed By: #### Tameka KWONG, LAB17, [id number] ####Loan Review Analyst: DOMENICA JARA ([id number])[facility] ([facility])[address] [place] [address] Anion gap [Moles/Vol] 13 mmol/L Normal 3-13 [facility] Comment on above: Performed By: #### Tameka KWONG, LAB17, [id number] ####Loan Review Analyst: DOMENICA JARA ([id number])[facility] ([facility])[address] [place] [address] AST [Catalytic activity/Vol] 35 U/L High <34 [facility] Comment on above: Performed By: #### Tameka KWONG, LAB17, [id number] ####Loan Review Analyst: DOMENICA JARA ([id number])[facility] ([facility])[address] [place] [address] Bilirubin [Mass/Vol] 0.6 mg/dL Normal <1.2 [facility] Comment on above: Performed By: #### Tameka KWONG, LAB17, [id number] ####Loan Review Analyst: DOMENICA JARA ([id number])[facility] ([facility])[address] [place] [address] Calcium [Mass/Vol] 9.2 mg/dL Normal 8.4-10.2 [facility] Comment on above: Performed By: #### L AB103, LAB17, [id number] ####Loan Review Analyst: DOMENICA JARA ([id number])[facility] [place] [address] Chloride [Moles/Vol] 94 mmol/L Low 98-107 [facility] Comment on above: Performed By: #### Tameka AB103, LAB17, [id number] ####Loan Review Analyst: DOMENICA JARA ([id number])[facility] ([facility] [place] [address] CO2 [Moles/Vol] 25 mmol/L Normal 22-29 [facility] Comment on above: Performed By: #### Tameka AB103, LAB17, [id number] ####Loan Review Analyst: DOMENICA JARA ([id number])[facility] ([facility] [place] [address] Creatinine [Mass/Vol] 3.99 mg/dL High 0.72-1.25 [facility] Comment on above: Performed By: #### Tameka ABRadha, LAB17, [id number] ####Loan Review Analyst: DOMENICA JARA ([id number])[facility] ([facility])[address] [place] [address] GLOMERULAR FILTRATION RATE ML/MIN/1.73 SQ M.PREDICTED 16.5 mL/min/1.73m*2 Low >60.0 [facility] Comment on above: Result Comment: Calc ulation based on the Chronic Kidney Disease Epidemiology Collaboration (CKD-EPI) equation refit without adjustment for race Performed By: #### L AB103, LAB17, [id number] ####Loan Review Analyst: DOMENICA JARA ([id number])[facility] ([facility])[address] [place] [address] [place] Glucose [Mass/Vol] 121 mg/dL High 74-100 [facility] Comment on above: Performed By: #### L AB103, LAB17, [id number] ####Loan Review Analyst: DOMENICA [id number])[facility] ([facility])[address] [place] [address] Potassium [Moles/Vol] 3.4 mmol/L Low 3.5-5.1 [facility] Comment on above: Result Comment: [facility] potassium values may be up to 0.5 mmol/L lower than serum values. Performed By: #### L AB103, LAB17, [id number] ####Loan Review Analyst: DOMENICA JARA ([id number])[facility] ([facility])[address] [place] [address] Protein [Mass/Vol] 6.7 g/dL Normal 6.4-8.3 [facility] Comment on above: Performed By: #### L AB103, LAB17, [id number] ####Loan Review Analyst: DOMENICA JARA ([id number])[facility] ([facility])[address] [place] [address] Sodium [Moles/Vol] 132 mmol/L Low 136-145 [facility] Comment on above: Performed By: #### Tameka AB103, LAB17, [id number] ####Loan Review Analyst: DOMENICA JARA ([id number])[facility] ([facility])[address] [place] [address] Urea nitrogen [Mass/Vol] 36 mg/dL High 9-23 [facility] Comment on above: Performed By: #### L AB103, LAB17, [id number] ####Loan Review Analyst: DOMENICA JARA ([id number])[facility] ([facility])[address] [place] [address] Comprehensive metabolic 1998 panelOrdered By: Michelle Olmstead on 02-22-2025 Albumin [Mass/Vol] 1.8 g/dL Low 3.5 - 5.0 g/dL [facility] ALP [Catalytic activity/Vol] 120 U/L 40 - 150 U/L [facility] ALT [Catalytic activity/Vol] 9 U/L NINF - 40 U/L [facility] Anion gap [Moles/Vol] 13 mmol/L 3 - 13 mmol/L [facility] AST [Catalytic activity/Vol] 35 U/L High NINF - 34 U/L [facility] Bilirubin [Mass/Vol] 0.6 mg/dL NINF - 1.2 mg/dL [facility] Calcium [Mass/Vol] 9.2 mg/dL 8.4 - 10. 2 mg/dL [facility] Chloride [Moles/Vol] 94 mmol/L Low 98 - 10 7 mmol/L [facility] CO2 [Moles/Vol] 25 mmol/L 22 - 29 mmol/L [facility] Creatinine [Mass/Vol] 3.99 mg/dL High 0.72 - 1.25 mg/dL [facility] GFR/1.73 sq M.predicted (S/P/Bld) [Vol rate/Area] 16.5 mL/min Low - PINF [facility] Glucose [Mass/Vol] 121 mg/dL High 74 - 100 mg/dL [facility] Interpretation and review of laboratory results Abnormal [facility] Potassium [Moles/Vol] 3.4 mmol/L Low 3.5 - 5.1 mmol/L [facility] Protein [Mass/Vol] 6.7 g/dL 6.4 - 8.3 g/dL [facility] Sodium [Moles/Vol] 132 mmol/L Low 136 - 145 mmol/L [facility] Urea nitrogen [Mass/Vol] 36 mg/dL High 9 - 23 mg/d L [facility] Consulton 02-22-2025 Consult Normal [facility] Consult Normal [facility] Consult Normal [facility] LEGIONELLA AND STREPTOCOCCUS URINE ANTIGENon 02-22-2025 LEGIONELLA AND STREPTOCOCCUS URINE ANTIGEN Normal [facility] Comment on above: Performed By: #### L [id number] ####Loan Review Analyst: DOMENICA JARA ([id number])[facility] ([address] Laboratory - Chemistry and C hemistry - challengeon 02-22-2025 Magnesium [Mass/Vol] 2.2 mg/dL 1.6 - 2 .6 mg/dL [facility] Laboratory - Coagulationon 0 02-22-2025 PT Coag (Bld) [Time] 14.9 s High 9.0 - 12.0 s [facility] Laboratory - Drug toxicology on 02-22-2025 Vancomycin [Mass/Vol] 12.6 ug/mL [facility] MAGNESIUMon 02-22-2025 Magnesium [Mass/Vol] 2.2 mg/dL Normal 1.6-2.6 [facility] Comment on above: Result Comment: ORDE R COMMENTS:Higher values can be expected in females during menses. Performed By: #### L AB103, LAB17, [id number] ####Loan Review Analyst: DOMENICA JARA ([id number])[facility] ([facility])[address] [place] [address] [place] MRSA BY PCRon 02-22-2025 MRSA BY PCR Normal [facility] Comment on above: Performed By: #### L [id number] ####Loan Review Analyst: DOMENICA JARA ([id number])[facility] ([facility])[address] [place] [address] [place] MRSA DNA EMMANUEL+probe Ql (Nose) on 02-22-2025 Interpretation and review of laboratory results Normal [facility] mecA gene Not detected Not Detected [facility] Staphylococcus aureus Not detected Not Detected [facility] Magnesium [Mass/Vol]on 02-22 [facility] No Panel Informationon 02-22 [facility] Interpretation and review of laboratory results Normal [facility] Interpretation and review of laboratory results Abnormal [facility] No Panel InformationOrdered By: Lorin Bryant on 02-22-2025 Interpretation and review of laboratory results Normal [facility] Legionella pneumophila Ag Not detected Not Detected [facility] Streptococcus pneumoniae Ag Not detected Not Detected [facility] Nursing Noteon 02-22-2025 Nursing Note Pt keeps ordering door dash items. Have explained to pt on multiple occasions that staff cannot leave floor to get items and that it is after hours and door dashers most likely will not be allowed up onto the floors. Normal [facility] Nursing Note Normal [facility] Nursing Note Normal [facility] PHOSPHORUSon 02-22-2025 Phosphate [Mass/Vol] 3.2 mg/dL Normal 2.3-4.7 [facility] Comment on above: Performed By: #### L AB103, LAB17, [id number] ####Loan Review Analyst: DOMENICA JARA ([id number])[facility] ([facility])[address] [place] [address] [place] PNEUMONIA PCR PANELon 2024 PNEUMONIA PCR PANEL Normal [facility] Comment on above: Performed By: #### L [id number] ####Loan Review Analyst: DOMENICA JARA ([id number])[facility])[address] [place] [address] PROTHROMBIN TIMEon INR Coag (PPP) [Relative time] 1.4 {INR} High 0.9-1.1 [facility] Comment on above: Result Comment: Vaughn [...] Myocardial Infarction Performed By: #### Tameka AB325, [id number] ####Loan Review Analyst: DOMENICA JARA ([id number])[facility] ([facility])[address] [place] [address] PT Coag (PPP) [Time] 14.9 s High 9.0-12.0 [facility] Comment on above: Performed By: #### L AB325, [id number] ####Loan Review Analyst: DOMENICA JARA ([id number])[address] PT Coag (Bld) [Time]on 02-22 INR Coag (PPP) [Relative time] 1.4 {INR} High 0.9 - 1.1 [facility] Phosphate [Moles/Vol]on 01-26 Phosphate [Mass/Vol] 3.2 mg/dL 2.3 - 4 .7 mg/dL [facility] Progress Noteon 02-22-2025 Progress Note Normal [facility] Progress Note Normal [facility] Progress Note Normal [facility] Progress Note OCCUPATIONAL THERAPY [facility] Name/MRN: Jair Snyder ([id number]) Date: 02/22/2025 PT refusing to participate in therapy this AM, will continue to follow and re approach for OT eval. Ro Farnsworth, OT Normal [facility] Progress Note Normal [facility] Progress Note Normal [facility] RESPIRATORY CULTURE AND STAI Non 02-22-2025 RESPIRATORY CULTURE AND STAIN Normal [facility] Comment on above: Performed By: #### L AB900 ####Loan Review Analyst: DOMENICA JARA ([id number])[facility] ([facility])[address] [place] [address] Respiratory pathogens DNA an d RNA panel EMMANUEL+non-probe (Lower resp)Ordered By: Odalys Bustamante on 02-22-2025 Acinetobacter baumannii complex Not detected Not Detected [facility] Adenovirus Not detected Not Detected [facility] Chlamydia pneumoniae Not detected Not Detected [facility] Enterobacter cloacae complex Not detected Not Detected [facility] Escherichia coli Not detected Not Detected [facility] FLUAV RNA EMMANUEL+non-probe Ql (Lower resp) Not detected Not Detected [facility] FLUBV RNA EMMANUEL+non-probe Ql (Lower resp) Not detected Not Detected [facility] Haemophilus influenzae Not detected Not Detecte d [facility] Human Metapneumovirus Not detected Not Detected [facility] Human Rhinovirus/Enterovirus Not detected Not Detected [facility] lt Interpretation and review of laboratory results Abnormal [facility] Klebsiella (Enterobacter) aerogenes Not detected Not Detected [facility] ealt Klebsiella oxytoca Detected Abnormal Not Detected [facility] Klebsiella pneumoniae Not detected Not Detected [facility] Legionella pneumophila Not detected Not Detecte d [facility] mecA Not detected Not Detected [facility] Moraxella catarrhalis Not detected Not Detected [facility] Mycoplasma pneumoniae Not detected Not Detected [facility] Parainfluenza virus Not detected Not Detected [facility] Proteus spp Not [facility] Pseud[facility] aeruginosa Not detected Not Detecte d [facility] RSV RNA EMMANUEL+probe Ql (Resp) Not detected Not Detected [facility] S. agalactiae Org specific cx Ql (Vag fld) Not detected Not Detected [facility] ealt SARS-CoV-2 (COVID-19) RNA EMMANUEL+non-probe Ql (Nph) Not detected Not Detected [facility] Serratia marcescens Not detected Not Detected [facility] Staphylococcus aureus Detected Abnormal Not Detected S [facility] Streptococcus pneumoniae Not detected Not Detec yo [facility] Streptococcus pyogenes Not detected Not Detecte d [facility] VANCOMYCIN, RANDOMon 025 VANCOMYCIN 12.6 ug/mL Normal [facility] Comment on above: Result Comment: ARPAN Kaplan COMMENTS:This level is ordered to be drawn 4 hours post- HD. ThanksToxicity is seen at concentrations >80-100 ug/mLTherapeutic (Peak) range: 20-40Therapeutic (Trough) range: 5-10 Performed By: #### L AB40 ####Loan Review Analyst: DOMENICA JARA ([id number])[facility] ([facility])[address] [place] [address] aPTT Coag (Bld) [Time]on aPTT Coag (PPP) [Time] 52.1 s High 20.0 - 30.[address] [facility] Interpretation and review of laboratory results Abnormal [facility] aPTT Coag (PPP) [Time] 54.9 s High 20.0 - 30.5 s [facility] 30on 02-21-2025 30 Normal [facility] [id number] 02-21-2025 [id number] [facility]Benoiti shannan signed by Kaity Sepulveda RN on 02/21/2025 at 12:54 PM Normal [facility] [id number] [facility] 36on 02-21-2025 36 Normal [facility] APTTon 02-21-2025 aPTT Coag (Bld) [Time] 50.3 s High 20.0-30.5 [facility] Comment on above: Result Comment: ARPAN Kaplan COMMENTS:NOTE: The therapeutic time for Heparin anticoagulation, based on Xa activity inhibition, is an APTT of 46-80 seconds. Performed By: #### L AB325 ####Loan Review Analyst: DOMENICA JARA ([id number])[facility] ([facility])[address] [place] [address] [place] aPTT Coag (Bld) [Time] 32.6 s High 20.0-30.5 [facility] Comment on above: Result Comment: ARPAN Kaplan COMMENTS:NOTE: The therapeutic time for Heparin anticoagulation, based on Xa activity inhibition, is an APTT of 46-80 seconds. Performed By: #### L AB325 ####Loan Review Analyst: DOMENICA JARA ([id number])[facility] ([facility])[address] [place] [address] BLOOD TYPE AND SCREEN GELon 02-21-2025 ABO GROUPING O Normal [facility] Comment on above: Performed By: #### L AB276 ####Loan Review Analyst: DOMENICA JARA ([id number])[facility] ([facility])[address] [place] [address] RH TYPE IN BLOOD Negative Normal [facility] Comment on above: Performed By: #### L AB276 ####Loan Review Analyst: DOMENICA JARA ([id number])[facility] ([facility])[address] [place] [address] Blood type and Crossmatch pa freida (Bld)on 02-21-2025 ABO group Nom (Bld) O [facility] Blood group antibody screen GEL Ql Negative [facility] D Ag Ql (RBC) Negative [facility] h [facility] C-REACTIVE PROTEINon 025 CRP [Mass/Vol] 60.3 mg/L High <5.0 [facility] Comment on above: Performed By: #### L AB149, [id number], LAB17, CHX550, [id number] ####Loan Review Analyst: DOMENICA JARA ([id number])[facility] ([facility])[address] [place] [address] CBC (HEMOGRAM)on 02-21-2025 Erythrocyte distribution width (RBC) [Ratio] 19.0 % High 11.5-15.0 [facility] Comment on above: Performed By: #### L AB294 ####Loan Review Analyst: DOMENICA JARA ([id number])[facility] ([facility])[address] [place] [address] Hematocrit (Bld) [Volume fraction] 25.7 % Low 40.0-52.0 [facility] Comment on above: Performed By: #### L AB294 ####Loan Review Analyst: DOMENICA JARA ([phone])[facility])[address] [place] [address] Hemoglobin (Bld) [Mass/Vol] 8.3 g/dL Low 13.0-18.0 [facility] Comment on above: Performed By: #### L AB294 ####Loan Review Analyst: DOMENICA JARA ([id number])[facility] ([facility])[address] [place] [address] MCH (RBC) [Entitic mass] 29.0 pg Normal 26.0-34.0 [facility] Comment on above: Performed By: #### L AB294 ####Loan Review Analyst: DOMENICA JARA ([id number])[facility])[address] [place] [address] MCHC 32.3 % Normal 30.5-36.0 [facility] Comment on above: Performed By: #### L AB294 ####Loan Review Analyst: DOMENICA JARA ([id number])[facility])[address] [place] [address] MCV (RBC) [Entitic vol] 89.9 fL Normal 77.0-99.0 [facility] Comment on above: Performed By: #### L AB294 ####Loan Review Analyst: DOMENICA JARA ([id number])[facility])[address] [place] [address] Platelet mean volume (Bld) [Entitic vol] 8.9 fL Low 9.0-12.7 [facility] Comment on above: Performed By: #### L AB294 ####Loan Review Analyst: DOMENICA JARA ([id number])[facility])[address] [place] [address] Platelets (Bld) [#/Vol] 316 10*3/uL Normal 140-440 [facility] Comment on above: Performed By: #### L AB294 ####Loan Review Analyst: DOMENICA JARA ([id number])[facility])[address] [place] [address] RBC (Bld) [#/Vol] 2.86 10*6/uL Low 4.40-5.90 [facility] Comment on above: Performed By: #### L AB294 ####Loan Review Analyst: DOMENICA JARA ([id number])[facility])[address] [place] [address] WBC (Bld) [#/Vol] 7.0 10*3/uL Normal 3.6-10.7 [facility] Comment on above: Performed By: #### L AB294 ####Loan Review Analyst: DOMENICA JARA ([id number])[facility] ([facility])[address] [place] [address] CBC panel Auto (Bld)on 02-21 Erythrocyte distribution width (RBC) [Ratio] 19 % High 11.5 - 15.0 % [facility] Hematocrit (Bld) [Volume fraction] 25.7 % Low 40.0 - 52.0 % [facility] Hemoglobin (Bld) [Mass/Vol] 8.3 g/dL Low 13.0 - 18.0 g/dL [facility] Interpretation and review of laboratory results Abnormal [facility] MCH (RBC) [Entitic mass] 29 pg 26. 0 - 34.[address] [facility] MCHC (RBC) [Mass/Vol] 32.3 % 30.5 - 36.0 % [facility] MCV (RBC) [Entitic vol] 89.9 fL 77.0 - 99.[address] [facility] Platelet mean volume (Bld) [Entitic vol] 8.9 fL Low 9.0 - 12.[address] [facility] Platelets (Bld) [#/Vol] 316 10*3/uL 140 - 440 10*3/uL [facility] RBC (Bld) [#/Vol] 2.86 10*6/uL Low 4.40 - 5.9 0 10*6/uL [facility] WBC (Bld) [#/Vol] 7 10*3/uL 3.6 - 10.7 10*3/uL [facility] COMPREHENSIVE METABOLIC PANE Victor M 02-21-2025 Albumin [Mass/Vol] 2.0 g/dL Low 3.5-5.0 [facility] Comment on above: Performed By: #### L AB149, [id number], LAB17, KQW657, FME220 ####Loan Review Analyst: DOMENICA JARA ([id number])[facility] ([facility])[address] [place] [address] ALP [Catalytic activity/Vol] 120 U/L Normal 40-150 [facility] Comment on above: Performed By: #### L AB149, [id number], LAB17, IEH020, XTN943 ####Loan Review Analyst: DOMENICA JARA ([id number])[facility] ([facility])[address] [place] [address] ALT [Catalytic activity/Vol] 8 U/L Normal <40 [facility] Comment on above: Performed By: #### L AB149, [id number], LAB17, TRK292, WGU628 ####Loan Review Analyst: DOMENICA JARA ([id number])[facility] ([facility])[address] [place] [address] Anion gap [Moles/Vol] 12 mmol/L Normal 3-13 [facility] Comment on above: Performed By: #### L AB149, [id number], LAB17, JGT099, CZZ463 ####Loan Review Analyst: DOMENICA JARA ([id number])[facility] ([facility])[address] [place] [address] AST [Catalytic activity/Vol] 39 U/L High <34 [facility] Comment on above: Performed By: #### L AB149, [id number], LAB17, ENQ187, SKC496 ####Loan Review Analyst: DOMENICA JARA ([id number])[facility])[address] [place] [address] Bilirubin [Mass/Vol] 0.8 mg/dL Normal <1.2 [facility] Comment on above: Performed By: #### L AB149, [id number], LAB17, RGO062, POB497 ####Loan Review Analyst: DOMENICA JARA ([id number])[facility])[address] [place] [address] Calcium [Mass/Vol] 9.3 mg/dL Normal 8.4-10.2 [facility] Comment on above: Performed By: #### L AB149, [id number], LAB17, OFN900, DPO631 ####Loan Review Analyst: DOMENICA JARA ([id number])[facility] ([facility])[address] [place] [address] Chloride [Moles/Vol] 91 mmol/L Low 98-107 [facility] Comment on above: Performed By: #### L AB149, [id number], LAB17, GXK300, RZU155 ####Loan Review Analyst: DOMENICA JARA ([id number])[facility] ([facility])[address] [place] [address] CO2 [Moles/Vol] 28 mmol/L Normal 22-29 [facility] Comment on above: Performed By: #### L AB149, [id number], LAB17, XYG621, ILS495 ####Loan Review Analyst: DOMENICA JARA ([id number])[facility])[address] [place] [address] Creatinine [Mass/Vol] 2.89 mg/dL High 0.72-1.25 [facility] Comment on above: Performed By: #### L AB149, [id number], LAB17, QXY071, DLS748 ####Loan Review Analyst: DOMENICA JARA ([id number])[facility])[address] [place], [place] [address] GLOMERULAR FILTRATION RATE ML/MIN/1.73 SQ M.PREDICTED 24.3 mL/min/1.73m*2 Low >60.0 [facility] Comment on above: Result Comment: Calc ulation based on the Chronic Kidney Disease Epidemiology Collaboration (CKD-EPI) equation refit without adjustment for race Performed By: #### L AB149, [id number], LAB17, GYP143, TZG794 ####Loan Review Analyst: DOMENICA JARA ([id number])[facility] [place] [address] Glucose [Mass/Vol] 74 mg/dL Normal 74-100 [facility] Comment on above: Performed By: #### L AB149, [id number], LAB17, RET896, NXT241 ####Loan Review Analyst: DOMENICA JARA ([id number])[facility] ([facility])[address] [place] [address] Potassium [Moles/Vol] 3.1 mmol/L Low 3.5-5.1 [facility] Comment on above: Result Comment: [facility] potassium values may be up to 0.5 mmol/L lower than serum values. Performed By: #### L AB149, [id number], LAB17, FIZ734, JXH590 ####Loan Review Analyst: DOMENICA JARA ([id number])[facility] ([facility])[address] [place] [address] Protein [Mass/Vol] 6.8 g/dL Normal 6.4-8.3 [facility] Comment on above: Performed By: #### L AB149, [id number], LAB17, EHK135, MSR309 ####Loan Review Analyst: DOMENICA JARA ([id number])[facility] ([facility])[address] [place] [address] Sodium [Moles/Vol] 131 mmol/L Low 136-145 [facility] Comment on above: Performed By: #### L AB149, [id number], LAB17, EMT955, PNM635 ####Loan Review Analyst: DOMENICA JARA ([id number])[facility] ([facility])[address] [place] [address] [place] Urea nitrogen [Mass/Vol] 29 mg/dL High 9-23 [facility] Comment on above: Performed By: #### L AB149, [id number], LAB17, CBB122, SWH351 ####Loan Review Analyst: DOMENICA JARA ([id number])[facility])[address] [place] [address] [place] CRP [Mass/Vol]on 02-21-2025 Interpretation and review of laboratory results Abnormal [facility] Comprehensive metabolic 1998 panelon 02-21-2025 Albumin [Mass/Vol] 2 g/dL Low 3.5 - 5.0 g/dL [facility] ALP [Catalytic activity/Vol] 120 U/L 40 - 150 U/L [facility] ALT [Catalytic activity/Vol] 8 U/L NINF - 40 U/L [facility] Anion gap [Moles/Vol] 12 mmol/L 3 - 13 mmol/L [facility] AST [Catalytic activity/Vol] 39 U/L High NINF - 34 U/L [facility] Bilirubin [Mass/Vol] 0.8 mg/dL NINF - 1.2 mg/dL [facility] Calcium [Mass/Vol] 9.3 mg/dL 8.4 - 10. 2 mg/dL [facility] Chloride [Moles/Vol] 91 mmol/L Low 98 - 10 7 mmol/L [facility] CO2 [Moles/Vol] 28 mmol/L 22 - 29 mmol/L [facility] Creatinine [Mass/Vol] 2.89 mg/dL High 0.72 - 1.25 mg/dL [facility] GFR/1.73 sq M.predicted (S/P/Bld) [Vol rate/Area] 24.3 mL/min Low - PINF [facility] Glucose [Mass/Vol] 74 mg/dL 74 - 100 mg/dL [facility] Potassium [Moles/Vol] 3.1 mmol/L Low 3.5 - 5.1 mmol/L [facility] Protein [Mass/Vol] 6.8 g/dL 6.4 - 8.3 g/dL [facility] Sodium [Moles/Vol] 131 mmol/L Low 136 - 145 mmol/L [facility] Urea nitrogen [Mass/Vol] 29 mg/dL High 9 - 23 mg/d L [facility] Consulton 02-21-2025 Consult Normal [facility] Consult Normal [facility] Consult Normal [facility] Consult Normal [facility] Laboratory - Chemistry and C hemistry - challengeon 02-21-2025 CRP [Mass/Vol] 60.3 mg/L High NINF - 5.0 mg/L [facility] Procalcitonin [Mass/Vol] 0.68 ng/mL High PROSPER F - 0.07 ng/mL [facility] Magnesium [Mass/Vol] 2.2 mg/dL 1.6 - 2 .6 mg/dL [facility] MAGNESIUMon 02-21-2025 Magnesium [Mass/Vol] 2.2 mg/dL Normal 1.6-2.6 [facility] Comment on above: Result Comment: ORDE R COMMENTS:Higher values can be expected in females during menses. Performed By: #### L AB149, [id number], LAB17, WSZ247, COI525 ####Loan Review Analyst: DOMENICA JARA ([id number])[facility] ([facility])[address] [place] [address] Magnesium [Mass/Vol]on 02-21 Interpretation and review of laboratory results Normal [facility] No Panel Informationon 02-21 Interpretation and review of laboratory results Abnormal [facility] Nursing Noteon 02-21-2025 Nursing Note Pt ordered [employer] food. Assisted pt to sit up on bedside to eat. Normal [facility] Nursing Note Normal [facility] Nursing Note Pt declining scheduled medications until after RN calls facility to see if he is actively taking those medications" per pt request. This RN spoke with RN at [facility] to verify medications that pt is taking. Normal [facility] Nursing Note Normal [facility] Nursing Note Pt removed NC from nose, stated he doesn't need it anymore. Respiratory Therapy came in to give pt, scheduled breathing treatment, pt stated he didn't need one." Normal [facility] Nursing Note Normal [facility] PHOSPHORUSon 02-21-2025 Phosphate [Mass/Vol] 2.0 mg/dL Low 2.3-4.7 [facility] Comment on above: Performed By: #### L AB149, [id number], LAB17, PCP527, DOY237 ####Loan Review Analyst: DOMENICA JARA ([id number])[facility] ([facility])[address] [place] [address] PROCALCITONIN TESTon 025 PROCALCITONIN 0.68 ng/mL High <0.07 [facility] Comment on above: Result Comment: ORDE R COMMENTS:PCT <0.50 = Low risk of severe sepsis and/or septic shock.PCT >2.00 = High risk of severe sepsis and/or septic shock. Performed By: #### L AB149, [id number], LAB17, BYT351, DZN671 ####Loan Review Analyst: DOMENICA JARA ([id number])[facility] [place] [address] Phosphate [Moles/Vol]on 01-26 Phosphate [Mass/Vol] 2 mg/dL Low 2.3 - 4 .7 mg/dL [facility] Procalcitonin [Mass/Vol]on 0 02-21-2025 Interpretation and review of laboratory results Abnormal [facility] Progress Noteon 02-21-2025 Progress Note PHYSICAL THERAPY [facility] Name/MRN: Jair Snyder ([id number]) Date: 02/21/2025 Pt declined to work with therapy at this time, stating he wanted to eat first. Will reattempt at a later date. Sangeeta Sarabia, PT Normal [facility] Progress Note Normal [facility] Progress Note Normal [facility] RESPIRATORY PATHOGENS PANEL BY PCRon 02-21-2025 RESPIRATORY PATHOGENS PANEL BY PCR Normal [facility] Comment on above: Performed By: #### L [id number] ####Loan Review Analyst: DOMENICA JARA ([id number])[facility] ([facility])[address] [place] [address] Respiratory pathogens DNA an d RNA panel EMMANUEL+non-probe (Nph)on 02-21-2025 Adenovirus Not detected Not Detected [facility] th B. pertussis DNA EMMANUEL+probe Ql (Unsp spec) Not detected Not Detected [facility]alth Bordetella parapertussis Not detected Not Detec yo [facility] Chlamydia pneumoniae Not detected Not Detected [facility] Coronavirus 229E Not detected Not Detected [facility] Coronavirus HKU1 Not detected Not Detected [facility] Coronavirus NL63 Not detected Not Detected [facility] Coronavirus OC43 Not detected Not Detected [facility] FLUAV RNA EMMANUEL+non-probe Ql (Nph) Not detected Not Detected [facility] FLUBV RNA EMMANUEL+non-probe Ql (Nph) Not detected Not Detected [facility] Human Metapneumovirus Not detected Not Detected [facility] Human Rhinovirus/Enterovirus Not detected Not Detected [facility] Interpretation and review of laboratory results Normal [facility] Mycoplasma pneumoniae Not detected Not Detected [facility] Parainfluenza 1 Not detected Not Detected [facility] Parainfluenza 2 Not detected Not Detected [facility] Parainfluenza 3 Not detected Not Detected [facility] Parainfluenza 4 Not detected Not Detected [facility] Respiratory Syncytial Virus Not detected Not Detected [facility] SARS-CoV-2 (COVID-19) RNA EMMANUEL+non-probe Ql (Nph) Not detected Not Detected [facility] aPTT Coag (Bld) [Time]on aPTT Coag (PPP) [Time] 50.3 s High 20.0 - 30.[address] [facility] Interpretation and review of laboratory results Abnormal [facility] aPTT Coag (PPP) [Time] 32.6 s High 20.0 - 30.[address] [facility] Interpretation and review of laboratory results Abnormal [facility] APTTon 02-20-2025 aPTT Coag (Bld) [Time] 26.2 s Normal 20.0-30.[address] [facility] Comment on above: Result Comment: ARPAN Kaplan COMMENTS:NOTE: The therapeutic time for Heparin anticoagulation, based on Xa activity inhibition, is an APTT of 46-80 seconds. Performed By: #### L AB320, VCX806 ####Loan Review Analyst: FENG CONSTANTINO ([id number])[facility] ([facility])[address] [place] [address] Absolute lymphocyte countOrd ered By: Kayley Melendrez on 02-20-2025 Lymphocytes Auto (Unsp spec) [#/Vol] 1.13 10*3/uL 0.83-4.51 [facility] Absolute neutrophil countOrd ered By: Kayley Melendrez on 02-20-2025 Neutrophils (Bld) [#/Vol] 4.6 10*3/uL 2.0-7.7 [facility] Anion gap in Serum or Plasma Ordered By: Kayley Melendrez on 02-20-2025 Anion gap [Moles/Vol] 12 mmol/L 5-15 [facility] Automated lymphocyte count a s percentage of total leukocytesOrdered By: Kayley Melendrez on 02-20-2025 Lymphocytes/100 WBC Auto (Unsp spec) 16.4 % Low 19-41 [facility] BASIC METABOLIC PANELon 05- Anion gap [Moles/Vol] 12 mmol/L Normal 3-13 [facility] Comment on above: Performed By: #### L AB15 ####Loan Review Analyst: FENG CONSTANTINO ([id number])[facility] [place] ([facility])[address] Calcium [Mass/Vol] 9.6 mg/dL Normal 8.4-10.2 [facility] Comment on above: Performed By: #### L AB15 ####Loan Review Analyst: FENG CONSTANTINO ([id number])[facility] [place] ([facility])[address] Chloride [Moles/Vol] 92 mmol/L Low 98-107 [facility] Comment on above: Performed By: #### L AB15 ####Loan Review Analyst: FENG CONSTANTINO ([id number])[facility] [place] ([facility])[address] CO2 [Moles/Vol] 29 mmol/L Normal 22-29 [facility] Comment on above: Performed By: #### L AB15 ####Loan Review Analyst: FENG CONSTANTINO ([id number])[facility] [place] ([facility])[address] Creatinine [Mass/Vol] 2.57 mg/dL High 0.72-1.25 [facility] Comment on above: Performed By: #### L AB15 ####Loan Review Analyst: FENG CONSTANTINO ([id number])[facility] [place] ([facility])[address] GLOMERULAR FILTRATION RATE ML/MIN/1.73 SQ M.PREDICTED 27.9 mL/min/1.73m*2 Low >60.0 [facility] Comment on above: Result Comment: Calc ulation based on the Chronic Kidney Disease Epidemiology Collaboration (CKD-EPI) equation refit without adjustment for race Performed By: #### L AB15 ####Loan Review Analyst: FENG CONSTANTINO ([id number])[facility] ([facility])[address] Glucose [Mass/Vol] 80 mg/dL Normal 74-100 [facility] Comment on above: Performed By: #### L AB15 ####Loan Review Analyst: FENG CONSTANTINO ([id number])[facility] ([facility])[address] Potassium [Moles/Vol] 3.1 mmol/L Low 3.5-5.1 [facility] Comment on above: Result Comment: [facility] potassium values may be up to 0.5 mmol/L lower than serum values. Performed By: #### L AB15 ####Loan Review Analyst: FENG CONSTANTINO ([id number])[facility] ([facility])[address] Sodium [Moles/Vol] 133 mmol/L Low 136-145 [facility] Comment on above: Performed By: #### L AB15 ####Loan Review Analyst: FENG CONSTANTINO ([id number])[facility] ([facility])[address] Urea nitrogen [Mass/Vol] 29 mg/dL High 9-23 [facility] Comment on above: Performed By: #### L AB15 ####Loan Review Analyst: FENG CONSTANTINO ([id number])[facility] ([facility])[address] BUN/creatinine ratioOrdered By: Kayley Melendrez on 02-20-2025 Urea nitrogen/Creatinine [Mass ratio] 11.5 mg/mg 10-20 [facility] Basic metabolic 1998 panelon 02-20-2025 Anion gap [Moles/Vol] 12 mmol/L 3 - 13 mmol/L [facility] Calcium [Mass/Vol] 9.6 mg/dL 8.4 - 10. 2 mg/dL [facility] Chloride [Moles/Vol] 92 mmol/L Low 98 - 10 7 mmol/L [facility] CO2 [Moles/Vol] 29 mmol/L 22 - 29 mmol/L [facility] Creatinine [Mass/Vol] 2.57 mg/dL High 0.72 - 1.25 mg/dL [facility] GFR/1.73 sq M.predicted (S/P/Bld) [Vol rate/Area] 27.9 mL/min Low - PINF [facility] Glucose [Mass/Vol] 80 mg/dL 74 - 100 mg/dL [facility] Interpretation and review of laboratory results Abnormal [facility] Potassium [Moles/Vol] 3.1 mmol/L Low 3.5 - 5.1 mmol/L [facility] Sodium [Moles/Vol] 133 mmol/L Low 136 - 145 mmol/L [facility] Urea nitrogen [Mass/Vol] 29 mg/dL High 9 - 23 mg/d L [facility] Basophil percentageOrdered B y: Kayley Melendrez on 02-20-2025 Basophils/100 WBC (Bld) 1.4 % High 0-1 [facility] Bilirubin, totalOrdered By: Kayley Melendrez on 02-20-2025 Bilirubin [Mass/Vol] 0.64 mg/dL 0.00-1.30 [facility] CBC (HEMOGRAM)on 02-20-2025 Erythrocyte distribution width (RBC) [Ratio] 18.8 % High 11.5-15.0 [facility] Comment on above: Performed By: #### L AB294 ####Loan Review Analyst: FENG CONSTANTINO ([id number])[facility] ([facility])[address] [place] [address] Hematocrit (Bld) [Volume fraction] 26.8 % Low 40.0-52.0 [facility] Comment on above: Performed By: #### L AB294 ####Loan Review Analyst: FENG CONSTANTINO ([id number])[facility] ([facility])[address] Hemoglobin (Bld) [Mass/Vol] 8.7 g/dL Low 13.0-18.0 [facility] Comment on above: Performed By: #### L AB294 ####Loan Review Analyst: FENG CONSTANTINO ([id number])[facility] [place] ([facility])[address] MCH (RBC) [Entitic mass] 28.7 pg Normal 26.0-34.0 [facility] Comment on above: Performed By: #### L AB294 ####Loan Review Analyst: FENG CONSTANTINO ([id number])[facility] ([facility])[address] MCHC 32.5 % Normal 30.5-36.0 [facility] Comment on above: Performed By: #### L AB294 ####Loan Review Analyst: FENG CONSTANTINO ([id number])[facility] ([facility])[address] MCV (RBC) [Entitic vol] 88.4 fL Normal 77.0-99.0 [facility] Comment on above: Performed By: #### L AB294 ####Loan Review Analyst: FENG CONSTANTINO ([id number])[facility]ITALMatt [facility] ([facility])[address] Platelet mean volume (Bld) [Entitic vol] 8.5 fL Low 9.0-12.7 [facility] Comment on above: Performed By: #### L AB294 ####Loan Review Analyst: FENG CONSTANTINO ([id number])[facility] ([facility])[address] [place] [address] [place] Platelets (Bld) [#/Vol] 312 10*3/uL Normal 140-440 [facility] Comment on above: Performed By: #### L AB294 ####Loan Review Analyst: FNEG CONSTANTINO ([id number])[facility] ([facility])[address] RBC (Bld) [#/Vol] 3.03 10*6/uL Low 4.40-5.90 [facility] Comment on above: Performed By: #### L AB294 ####Loan Review Analyst: FENG CONSTANTINO ([id number])[facility] ([facility])[address] WBC (Bld) [#/Vol] 9.4 10*3/uL Normal 3.6-10.7 [facility] Comment on above: Performed By: #### L AB294 ####Loan Review Analyst: FENG CONSTANTINO ([id number])[facility] ([facility])[address] CBC W/Diff, Automatedon 05-2 Absolute Lymph 1.13 X10 3/uL Normal 0.83-4.51 [facility] Comment on above: Order Comment: 413.2 Performed By: #### L 500.4050, L100.0100, L300.3900 #### [facility] [address] [place], [address] Absolute Neut 4.6 X10 3/uL Normal 2.0-7.7 [facility] Comment on above: Order Comment: 413.2 Performed By: #### L 500.4050, L100.0100, L300.3900 #### [facility] [address] [place], [address] Basophils/100 WBC (Bld) 1.4 % High 0-1 [facility] Comment on above: Order Comment: 413.2 Performed By: #### L 500.4050, L100.0100, L300.3900 #### [facility] [address] [place], [address] Eosinophils/100 WBC (Bld) 2.5 % Normal 0-5 [facility] Comment on above: Order Comment: 413.2 Performed By: #### L 500.4050, L100.0100, L300.3900 #### [facility] [address] [place], [address] Erythrocyte distribution width (RBC) [Ratio] 19.4 % High 11.6-14.6 [facility] Comment on above: Order Comment: 413.2 Performed By: #### L 500.4050, L100.0100, L300.3900 #### [facility] [address] [place], [address] Hematocrit (Bld) [Volume fraction] 25.9 % Low 40-54 [facility] Comment on above: Order Comment: 413.2 Performed By: #### L 500.4050, L100.0100, L300.3900 #### [facility] [address] [place], [address] Hemoglobin (Bld) [Mass/Vol] 8.5 g/dL Low 13.0-16.5 [facility] Comment on above: Order Comment: 413.2 Performed By: #### L 500.4050, L100.0100, L300.3900 #### [facility] [address] [place], [address] IG% 0.400 Normal 0.0-0.9 [facility] Comment on above: Order Comment: 413.2 Result Comment: IG% - Immature Granulocytes (promyelocytes, myelocytes and metamyelocytes) > 1% indicates that a LEFT SHIFT is Present. Performed By: #### L 500.4050, L100.0100, L300.3900 #### [facility] [address] [place], [address] Lymphocytes/100 WBC (Bld) 16.4 % Low 19-41 [facility] Comment on above: Order Comment: 413.2 Performed By: #### L 500.4050, L100.0100, L300.3900 #### [facility] [address] [place], [address] MCH (RBC) [Entitic mass] 30.1 pg Normal 27.0-32.0 [facility] Comment on above: Order Comment: 413.2 Performed By: #### L 500.4050, L100.0100, L300.3900 #### [facility] [address] [place], [address] MCHC (RBC) [Mass/Vol] 32.8 g/dL Normal 32-36 [facility] Comment on above: Order Comment: 413.2 Performed By: #### L 500.4050, L100.0100, L300.3900 #### [facility] [address] [place], [address] MCV (RBC) [Entitic vol] 91.8 fL Normal 80-94 [facility] Comment on above: Order Comment: 413.2 Performed By: #### L 500.4050, L100.0100, L300.3900 #### [facility] [address] [place], [address] Monocytes/100 WBC (Bld) 12.0 % High 0-10 [facility] Comment on above: Order Comment: 413.2 Performed By: #### L 500.4050, L100.0100, L300.3900 #### [facility] [address] [place], [address] Neutrophils/100 WBC (Bld) 67.3 % Normal 47-70 [facility] Comment on above: Order Comment: 413.2 Performed By: #### L 500.4050, L100.0100, L300.3900 #### [facility] [address] [place], [address] Nucleated RBC (Bld) [#/Vol] 0 10*3/uL Normal 0-5 [facility] Comment on above: Order Comment: 413.2 Performed By: #### L 500.4050, L100.0100, L300.3900 #### [facility] [address] [place], [address] Platelet mean volume (Bld) [Entitic vol] 9.0 fL Normal 6.2-12.0 [facility] Comment on above: Order Comment: 413.2 Performed By: #### L 500.4050, L100.0100, L300.3900 #### [facility] [address] [place], [address] Platelets (Bld) [#/Vol] 322 10*3/uL Normal 150-450 [facility] Comment on above: Order Comment: 413.2 Performed By: #### L 500.4050, L100.0100, L300.3900 #### [facility] [address] [place], [address] RBC (Bld) [#/Vol] 2.82 10*6/uL Low 4.6-6.2 [facility] Comment on above: Order Comment: 413.2 Performed By: #### L 500.4050, L100.0100, L300.3900 #### [facility] [address] [place], [address] RDW SD 63.5 fl High 35.1-43.9 [facility] Comment on above: Order Comment: 413.2 Performed By: #### L 500.4050, L100.0100, L300.3900 #### [facility] [address] [place], [address] WBC (Bld) [#/Vol] 6.9 10*3/uL Normal 4.4-11.0 [facility] Comment on above: Order Comment: 413.2 Performed By: #### L 500.4050, L100.0100, L300.3900 #### [facility] [address] [place], [address] CBC panel Auto (Bld)on 02-20 Erythrocyte distribution width (RBC) [Ratio] 18.8 % High 11.5 - 15.0 % [facility] Hematocrit (Bld) [Volume fraction] 26.8 % Low 40.0 - 52.0 % [facility] Hemoglobin (Bld) [Mass/Vol] 8.7 g/dL Low 13.0 - 18.0 g/dL [facility] Interpretation and review of laboratory results Abnormal [facility] MCH (RBC) [Entitic mass] 28.7 pg 26. 0 - 34.[address] [facility] MCHC (RBC) [Mass/Vol] 32.5 % 30.5 - 36.0 % [facility] MCV (RBC) [Entitic vol] 88.4 fL 77.0 - 99.[address] [facility] Platelet mean volume (Bld) [Entitic vol] 8.5 fL Low 9.0 - 12.[address] [facility] Platelets (Bld) [#/Vol] 312 10*3/uL 140 - 440 10*3/uL [facility] RBC (Bld) [#/Vol] 3.03 10*6/uL Low 4.40 - 5.9 0 10*6/uL [facility] WBC (Bld) [#/Vol] 9.4 10*3/uL 3.6 - 10.7 10*3/uL [facility] CT CHEST ANGIOGRAM W AND/OR WO IV CONTRASTon 02-20-2025 CT CHEST ANGIOGRAM W AND/OR WO IV CONTRAST Normal [facility] CTA Chest vessels WO and W c ontrast Dimitrios 02-20-2025 [facility] RADIOLOGY [facility] Radiology Study observation (narrative) [facility] CTA Chest vessels WO and W c ontrast IVOrdered By: Justo Milan on 02-20-2025 [facility] Work Phone: Carbon dioxide, total [Moles /volume] in Central venous bloodOrdered By: Kayley Melendrez on 02-20-2025 CO2 [Moles/Vol] 30.1 mmol/L 21.0-32.0 [facility] Chloride assayOrdered By: Carmen Melendrez on 02-20-2025 Chloride [Moles/Vol] 91 mmol/L Low 98-108 [facility] Comprehensive Metabolic Prof ilon 02-20-2025 Albumin [Mass/Vol] 3.0 g/dL Low 3.5-5.0 [facility] Comment on above: Order Comment: 413.2 Performed By: #### L 500.4050, L100.0100, L300.3900 #### [facility] [address] [place], [address] Albumin/Globulin [Mass ratio] 0.8 {ratio} Low 0.9-2.4 [facility] Comment on above: Order Comment: 413.2 Performed By: #### L 500.4050, L100.0100, L300.3900 #### [facility] [address] [place], [address] ALK PHOS 133 U/L High 40-129 [facility] Comment on above: Order Comment: 413.2 Performed By: #### L 500.4050, L100.0100, L300.3900 #### [facility] [address] [place], [address] ALT [Catalytic activity/Vol] 13 U/L Normal <=46 [facility] Comment on above: Order Comment: 413.2 Performed By: #### L 500.4050, L100.0100, L300.3900 #### [facility] [address] [place], [address] AST [Catalytic activity/Vol] 32 U/L Normal <=37 [facility] Comment on above: Order Comment: 413.2 Performed By: #### L 500.4050, L100.0100, L300.3900 #### [facility] [address] [place], [address] Bilirubin [Mass/Vol] 0.64 mg/dL Normal 0.00-1.30 [facility] Comment on above: Order Comment: 413.2 Performed By: #### L 500.4050, L100.0100, L300.3900 #### [facility] [address] [place], [address] BUN/CRE 11.5 RATIO Normal 10-20 [facility] Comment on above: Order Comment: 413.2 Performed By: #### L 500.4050, L100.0100, L300.3900 #### [facility] [address] [place], [address] Calcium [Mass/Vol] 9.8 mg/dL Normal 7.6-11.0 [facility] Comment on above: Order Comment: 413.2 Performed By: #### L 500.4050, L100.0100, L300.3900 #### [facility] [address] [place], [address] Chloride [Moles/Vol] 91 mmol/L Low 98-108 [facility] Comment on above: Order Comment: 413.2 Performed By: #### L 500.4050, L100.0100, L300.3900 #### [facility] [address] [place], [address] CO2 [Moles/Vol] 30.1 mmol/L Normal 21.0-32.0 [facility] Comment on above: Order Comment: 413.2 Performed By: #### L 500.4050, L100.0100, L300.3900 #### [facility] [address] [place], [address] Creatinine [Mass/Vol] 3.87 mg/dL High 0.70-1.20 [facility] Comment on above: Order Comment: 413.2 Performed By: #### L 500.4050, L100.0100, L300.3900 #### [facility] [address] [place], [address] GAP 12 Normal 5-15 [facility] Comment on above: Order Comment: 413.2 Performed By: #### L 500.4050, L100.0100, L300.3900 #### [facility] [address] [place], [address] GFR/1.73 sq M.predicted among non-blacks MDRD (S/P/Bld) [Vol rate/Area] 17 mL/min/{1.73_m2} Low >60 [facility] Comment on above: Order Comment: 413.2 Result Comment: mL/m in/1.73m2 CKD-EPI Creatinine Equation (2020) Performed By: #### L 500.4050, L100.0100, L300.3900 #### [facility] [address] [place], [address] Globulin (S) [Mass/Vol] 4.0 g/dL Normal 2.2-4.2 [facility] Comment on above: Order Comment: 413.2 Performed By: #### L 500.4050, L100.0100, L300.3900 #### [facility] [address] [place], [address] Glucose [Mass/Vol] 78 mg/dL Normal 70-99 [facility] Comment on above: Order Comment: 413.2 Performed By: #### L 500.4050, L100.0100, L300.3900 #### [facility] [address] [place], [address] Potassium [Moles/Vol] 3.0 mmol/L Low 3.3-5.1 [facility] Comment on above: Order Comment: 413.2 Performed By: #### L 500.4050, L100.0100, L300.3900 #### [facility] [address] [place], [address] Sodium [Moles/Vol] 134 mmol/L Normal 133-145 [facility] Comment on above: Order Comment: 413.2 Performed By: #### L 500.4050, L100.0100, L300.3900 #### [facility] [address] [place], [place], [id number] T PROT 6.9 g/dL Normal 5.9-8.4 [facility] Comment on above: Order Comment: 413.2 Performed By: #### L 500.4050, L100.0100, L300.3900 #### [facility] [address] [place], [address] Urea nitrogen [Mass/Vol] 44 mg/dL High 4-19 [facility] Comment on above: Order Comment: 413.2 Performed By: #### L 500.4050, L100.0100, L300.3900 #### [facility] [address] [place], [place], [id number] ED Nursing Noteon 02-20-2025 ED Nursing Note Called report to 3W nurse who will be taking over pt care. Normal [facility] ED Nursing Note Attempted to reposition pt and have him sit up but pt states "he feels fine and does not want to sit up"despite coughing up blood. Normal [facility] ED Nursing Note Pt placed on 2L NC due to O2 saturation of 90%. Currently 97 on 2L Normal [facility] ED Nursing Note Suction turned on at this time for pt due to increased coughing up of blood Normal [facility] ED Nursing Note Normal [facility] ED Nursing Note Normal [facility] ED Provider Noteon ED Provider Note Normal [facility] Eosinophil percentageOrdered By: Kayley Melendrez on 02-20-2025 Eosinophils/100 WBC (Bld) 2.5 % 0-5 [facility] Erythrocyte distribution wid th ratioOrdered By: Kayley Melendrez on 02-20-2025 Erythrocyte distribution width (RBC) [Ratio] 19.4 % High 11.6-14.6 [facility] Erythrocyte distribution wid th standard deviationOrdered By: Kayley Melendrez on 02-20-2025 Erythrocyte distribution width (RBC) [Ratio] 63.5 fl High 35.1-43.9 [facility] Glomerular filtration rate ( GFR) estimation/1.73 sq m using serum, plasma, or whole bOrdered By: Kayley Melendrez on 02-20-2025 GFR/1.73 sq M.predicted among non-blacks MDRD (S/P/Bld) [Vol rate/Area] 17 mL/min/{1.73_m2} Low >60 [facility] Comment on above: mL/min/1.73m2 CKD-EP I Creatinine Equation (2020) Hematocrit Auto (Bld) [Volum e fraction]Ordered By: Kayley Melendrez on 02-20-2025 Hematocrit (Bld) [Volume fraction] 25.9 % Low 40-54 [facility] Hemoglobin measurementOrdere d By: Kayley Melendrez on 02-20-2025 Hemoglobin (Bld) [Mass/Vol] 8.5 g/dL Low 13.0-16.5 [facility] Immature granulocytes/100 WB C Auto (Bld)Ordered By: Kayley Melendrez on 02-20-2025 Immature granulocytes/100 WBC (Bld) 0.400 % 0.0-0.9 [facility] Comment on above: IG% - Immature Granu locytes (promyelocytes, myelocytes and metamyelocytes) > 1% indicates that a LEFT SHIFT is Present. International normalized rat io (INR) calculationOrdered By: Kayley Melendrez on 02-20-2025 INR Coag (Bld) [Relative time] 1.4 {INR} [facility] - Chemistry and C hemistry - challengeOrdered By: Kayley Melendrez on 02-20-2025 AST [Catalytic activity/Vol] 32 U/L <38 [facility] - Coagulationon 0 02-20-2025 PT Coag (Bld) [Time] 14.7 s High 9.0 - 12.0 s [facility] MCV (mean corpuscular volume ) determinationOrdered By: Kayley Melendrez on 02-20-2025 MCV (RBC) [Entitic vol] 91.8 fL 80-94 [facility] Mean corpuscular hemoglobin (MCH) determinationOrdered By: Kayley Melendrez on 02-20-2025 MCH (RBC) [Entitic mass] 30.1 pg 27.0-32.0 [facility] Mean corpuscular hemoglobin concentration (MCHC) determinationOrdered By: Kayley Melendrez on 02-20-2025 MCHC (RBC) [Mass/Vol] 32.8 g/dL 32-36 [facility] Mean platelet volume determi nationOrdered By: Kayley Melendrez on 02-20-2025 Platelet mean volume (Bld) [Entitic vol] 9.0 fL 6.2-12.0 [facility] Monocyte percentageOrdered B y: [facility] Melendrez on 02-20-2025 Monocytes/100 WBC (Bld) 12.0 % High 0-10 [facility] Neutrophil percentageOrdered By: [facility] Healthcarejacob Goodensomerdalesamson on 02-20-2025 Neutrophils/100 WBC (Bld) 67.3 % 47-70 [facility] No Panel Informationon 02-20 [facility] Nucleated red blood cell per centageOrdered By: Kayley Melendrez on 02-20-2025 Nucleated RBC/100 WBC (Bld) [Ratio] 0 % 0-5 [facility] Nursing Noteon 02-20-2025 Nursing Note Pt arrived on floor via [employer] Normal [facility] PROTHROMBIN TIMEon INR Coag (PPP) [Relative time] 1.4 {INR} High 0.9-1.1 [facility] Comment on above: Result Comment: Vaughn [...] Myocardial Infarction Performed By: #### L AB320, [id number] ####Loan Review Analyst: FENG CONSTANTINO ([id number])[facility]ITALMatt [facility] ([facility])[address] [place] [address] PT Coag (PPP) [Time] 14.7 s High 9.0-12.0 [facility] Comment on above: Performed By: #### L AB320, [id number] ####Loan Review Analyst: FENG CONSTANTINO ([id number])[facility]ITAL[facility] WH[facility] ([facility])[address] [place] [address] [facility] PT Coag (Bld) [Time]on 02-20 INR Coag (PPP) [Relative time] 1.4 {INR} High 0.9 - 1.1 [facility] Interpretation and review of laboratory results Abnormal [facility] Platelet countOrdered By: Carmen Melendrez on 02-20-2025 Platelets (Bld) [#/Vol] 322 10*3/uL 150-450 [facility] Potassium measurement (mass/ volume)Ordered By: Kayley Melendrez on 02-20-2025 Potassium (Unsp spec) [Mass/Vol] 3.0 mmol/L Low 3.3-5.1 [facility] Prothrombin Time w/INRon INR Coag (PPP) [Relative time] 1.4 {INR} Normal [facility] Comment on above: Order Comment: 413.2 Performed By: #### L 500.4050, L100.0100, L300.3900 #### [facility] [address] [place], [address] PT Coag (PPP) [Time] 17.5 s High 11.7-14.9 [facility] Comment on above: Order Comment: 413.2 Performed By: #### L 500.4050, L100.0100, L300.3900 #### [facility] [address] [place], [address] Prothrombin timeOrdered By: Kayley Melendrez on 02-20-2025 PT Coag (PPP) [Time] 17.5 s High 11.7-14.9 [facility] RBC Auto (Bld) [#/Vol]Ordere d By: Kayley Melendrez on 02-20-2025 RBC (Bld) [#/Vol] 2.82 10*6/uL Low 4.6-6.2 [facility] Serum creatinine measurement (mass/volume)Ordered By: Kayley Melendrez on 02-20-2025 Creatinine [Mass/Vol] 3.87 mg/dL High 0.70-1.20 [facility] Serum globulin measurementOr dered By: Kayley Melendrez on 02-20-2025 Globulin (S) [Mass/Vol] 4.0 g/dL 2.2-4.2 [facility] Serum glucose measurement (m ass/volume)Ordered By: Kayley Melendrez on 02-20-2025 Glucose [Mass/Vol] 78 mg/dL 70-99 [facility] Serum or plasma alanine mayorga otransferase (ALT) measurementOrdered By: Kayley Melendrez on 02-20-2025 ALT [Catalytic activity/Vol] 13 U/L <47 [facility] Serum or plasma albumin audrey urement (mass/volume)Ordered By: Kayley Melendrez on 02-20-2025 Albumin [Mass/Vol] 3.0 g/dL Low 3.5-5.0 [facility] Serum or plasma albumin/glob ulin mass ratioOrdered By: Kayley Melendrez on 02-20-2025 Albumin/Globulin [Mass ratio] 0.8 {ratio} Low 0.9-2.4 [facility] Serum or plasma alkaline jacob sphatase measurementOrdered By: Kayley Melendrez on 02-20-2025 ALP [Catalytic activity/Vol] 133 U/L High 40-129 [facility] Serum or plasma calcium audrey urement (mass/volume)Ordered By: Kayley Melendrez on 02-20-2025 Calcium [Mass/Vol] 9.8 mg/dL 7.6-11.0 [facility] Serum or plasma urea nitroge n measurement (mass/volume)Ordered By: Kayley Melendrez on 02-20-2025 Urea nitrogen [Mass/Vol] 44 mg/dL High 4-19 [facility] [place] [facility] Sodium levelOrdered By: Omega colindreser Parvin on 02-20-2025 Sodium [Moles/Vol] 134 mmol/L 133-145 [facility] Total proteinOrdered By: Lexis christensen Parvin on 02-20-2025 Protein [Mass/Vol] 6.9 g/dL 5.9-8.4 [facility] White blood cell (WBC) count Ordered By: Kayley Melendrez on 02-20-2025 WBC (Bld) [#/Vol] 6.9 10*3/uL 4.4-11.0 [facility] aPTT Coag (Bld) [Time]on aPTT Coag (PPP) [Time] 26.2 s 20.0 - 30.[address] [facility] Interpretation and review of laboratory results Normal [facility] International normalized rat io (INR) calculationOrdered By: Kayley Melendrez on 02-15-2025 INR Coag (Bld) [Relative time] 1.3 {INR} [facility] Prothrombin Time w/INRon INR Coag (PPP) [Relative time] 1.3 {INR} Normal [facility] Comment on above: Order Comment: 413.2 Performed By: #### L 500.4050, L100.0100, L300.3900 #### [facility] [address] [place], [address] PT Coag (PPP) [Time] 16.6 s High 11.7-14.9 [facility] Comment on above: Order Comment: 413.2 Performed By: #### L 500.4050, L100.0100, L300.3900 #### [facility] [address] [place], [address] Prothrombin timeOrdered By: Kayley Melendrez on 02-15-2025 PT Coag (PPP) [Time] 16.6 s High 11.7-14.9 [facility] Progress Noteon 02-14-2025 Progress Note Patient completed 6 week course of Amp-Sulbactam on 02/13/25 for sacral osteomyelitis. Tunneled line has since been removed. Continue to monitor off antibiotics at this time. Continue wound care. Normal [facility] Progress Note Normal [facility] International normalized rat io (INR) measurement by fingerstickOrdered By: Kayley Melendrez on 02-13-2025 INR Coag (BldC) [Relative time] 1.7 [facility] Comment on above: Critical Value > 4.0 Protime w/INR Fingerstickon 02-13-2025 INR Coag (PPP) [Relative time] 1.7 {INR} Normal [facility] Comment on above: Result Comment: Crit ical Value > 4.0 Performed By: #### L 9200.0000 #### [facility] [address] [place], [place], [id number] Protime Coagsen 19.1 SEC High 11.7-14.9 [facility] Comment on above: Performed By: #### L 9200.0000 #### [facility] [address] [place], [place], [id number] Whole blood prothrombin time Ordered By: Kayley Melendrez on 02-13-2025 PT Coag (Bld) [Time] 19.1 s High 11.7-14.9 [facility] Absolute lymphocyte countOrd ered By: Kayley Melendrez on 02-12-2025 Lymphocytes Auto (Unsp spec) [#/Vol] 1.29 10*3/uL 0.83-4.51 [facility] Absolute neutrophil countOrd ered By: Kayley Melendrez on 02-12-2025 Neutrophils (Bld) [#/Vol] 4.7 10*3/uL 2.0-7.7 [facility] Anion gap in Serum or Plasma Ordered By: Kayley Melendrez on 02-12-2025 Anion gap [Moles/Vol] 12 mmol/L 5-15 [facility] Automated lymphocyte count a s percentage of total leukocytesOrdered By: Kayley Melendrez on 02-12-2025 Lymphocytes/100 WBC Auto (Unsp spec) 17.7 % Low 19- [facility] BUN/creatinine ratioOrdered By: Kayley Marquesartemmatt on 02-12-2025 Urea nitrogen/Creatinine [Mass ratio] 10.3 mg/mg 10- [facility] Basophil percentageOrdered B y: Kayley Melendrez on 02-12-2025 Basophils/100 WBC (Bld) 1.1 % High 0-1 [facility] Bilirubin, totalOrdered By: Kayley Marquessamson on 02-12-2025 Bilirubin [Mass/Vol] 0.69 mg/dL 0.00-1.30 [facility] CBC W/Diff, Automatedon 01-25 Absolute Lymph 1.29 X10 3/uL Normal 0.83-4.51 [facility] Comment on above: Performed By: #### L 500.4050, L100.0100, L300.3900 #### [facility] [address] [place], [address] Absolute Neut 4.7 X10 3/uL Normal 2.0-7.7 [facility] Comment on above: Performed By: #### L 500.4050, L100.0100, L300.3900 #### [facility] [address] [place], [address] Basophils/100 WBC (Bld) 1.1 % High 0-1 [facility] Comment on above: Performed By: #### L 500.4050, L100.0100, L300.3900 #### [facility] [address] [place], [address] Eosinophils/100 WBC (Bld) 4.7 % Normal 0-5 [facility] Comment on above: Performed By: #### L 500.4050, L100.0100, L300.3900 #### [facility] [address] [place], [address] Erythrocyte distribution width (RBC) [Ratio] 18.3 % High 11.6-14.6 [facility] Comment on above: Performed By: #### L 500.4050, L100.0100, L300.3900 #### [facility] [address] [place], [address] Hematocrit (Bld) [Volume fraction] 24.6 % Low 40-54 [facility] Comment on above: Performed By: #### L 500.4050, L100.0100, L300.3900 #### [facility] [address] [place], [address] Hemoglobin (Bld) [Mass/Vol] 8.0 g/dL Low 13.0-16.5 [facility] Comment on above: Performed By: #### L 500.4050, L100.0100, L300.3900 #### [facility] [address] [place], [address] IG% 0.500 Normal 0.0-0.9 [facility] Comment on above: Result Comment: IG% - Immature Granulocytes (promyelocytes, myelocytes and metamyelocytes) > 1% indicates that a LEFT SHIFT is Present. Performed By: #### L 500.4050, L100.0100, L300.3900 #### [facility] [address] [place], [address] Lymphocytes/100 WBC (Bld) 17.7 % Low 19-41 [facility] Comment on above: Performed By: #### L 500.4050, L100.0100, L300.3900 #### [facility] [address] [place], [address] MCH (RBC) [Entitic mass] 29.3 pg Normal 27.0-32.0 [facility] Comment on above: Performed By: #### L 500.4050, L100.0100, L300.3900 #### [facility] [address] [place], [address] MCHC (RBC) [Mass/Vol] 32.5 g/dL Normal 32-36 [facility] Comment on above: Performed By: #### L 500.4050, L100.0100, L300.3900 #### [facility] [address] [place], [address] MCV (RBC) [Entitic vol] 90.1 fL Normal 80-94 [facility] Comment on above: Performed By: #### L 500.4050, L100.0100, L300.3900 #### [facility] [address] [place], [address] Monocytes/100 WBC (Bld) 11.9 % High 0-10 [facility] Comment on above: Performed By: #### L 500.4050, L100.0100, L300.3900 #### [facility] [address] [place], [address] Neutrophils/100 WBC (Bld) 64.1 % Normal 47-70 [facility] Comment on above: Performed By: #### L 500.4050, L100.0100, L300.3900 #### [facility] [address] [place], [address] Nucleated RBC (Bld) [#/Vol] 0 10*3/uL Normal 0-5 [facility] Comment on above: Performed By: #### L 500.4050, L100.0100, L300.3900 #### [facility] [address] [place], [address] Platelet mean volume (Bld) [Entitic vol] 9.2 fL Normal 6.2-12.0 [facility] Comment on above: Performed By: #### L 500.4050, L100.0100, L300.3900 #### [facility] [address] [place], [address] Platelets (Bld) [#/Vol] 294 10*3/uL Normal 150-450 [facility] Comment on above: Performed By: #### L 500.4050, L100.0100, L300.3900 #### [facility] [address] [place], [address] RBC (Bld) [#/Vol] 2.73 10*6/uL Low 4.6-6.2 [facility] Comment on above: Performed By: #### L 500.4050, L100.0100, L300.3900 #### [facility] [address] [place], [address] RDW SD 59.4 fl High 35.1-43.9 [facility] Comment on above: Performed By: #### L 500.4050, L100.0100, L300.3900 #### [facility] [address] [place], [address] WBC (Bld) [#/Vol] 7.3 10*3/uL Normal 4.4-11.0 [facility] Comment on above: Performed By: #### L 500.4050, L100.0100, L300.3900 #### [facility] [address] [place], [address] Carbon dioxide, total [Moles /volume] in Central venous bloodOrdered By: Kayley Melendrez on 02-12-2025 CO2 [Moles/Vol] 28.4 mmol/L 21.0-32.0 [facility] Chloride assayOrdered By: Carmen Melendrez on 02-12-2025 Chloride [Moles/Vol] 91 mmol/L Low 98-108 [facility] Comprehensive Metabolic Prof ilon 02-12-2025 Albumin [Mass/Vol] 2.9 g/dL Low 3.5-5.0 [facility] Comment on above: Performed By: #### L 500.4050, L100.0100, L300.3900 #### [facility] [address] [place], [address] Albumin/Globulin [Mass ratio] 0.7 {ratio} Low 0.9-2.4 [facility] Comment on above: Performed By: #### L 500.4050, L100.0100, L300.3900 #### [facility] [address] [place], [address] ALK PHOS 177 U/L High 40-129 [facility] Comment on above: Performed By: #### L 500.4050, L100.0100, L300.3900 #### [facility] [address] [place], [address] ALT [Catalytic activity/Vol] 9 U/L Normal <=46 [facility] Comment on above: Performed By: #### L 500.4050, L100.0100, L300.3900 #### [facility] [address] [place], [address] AST [Catalytic activity/Vol] 34 U/L Normal <=37 [facility] Comment on above: Performed By: #### L 500.4050, L100.0100, L300.3900 #### [facility] [address] [place], [address] Bilirubin [Mass/Vol] 0.69 mg/dL Normal 0.00-1.30 [facility] Comment on above: Performed By: #### L 500.4050, L100.0100, L300.3900 #### [facility] [address] [place], [address] BUN/CRE 10.3 RATIO Normal 10-20 [facility] Comment on above: Performed By: #### L 500.4050, L100.0100, L300.3900 #### [facility] [address] [place], [address] Calcium [Mass/Vol] 9.9 mg/dL Normal 7.6-11.0 [facility] Comment on above: Performed By: #### L 500.4050, L100.0100, L300.3900 #### [facility] [address] [place], [address] Chloride [Moles/Vol] 91 mmol/L Low 98-108 [facility] Comment on above: Performed By: #### L 500.4050, L100.0100, L300.3900 #### [facility] [address] [place], [address] CO2 [Moles/Vol] 28.4 mmol/L Normal 21.0-32.0 [facility] Comment on above: Performed By: #### L 500.4050, L100.0100, L300.3900 #### [facility] [address] [place] [place], [address] Creatinine [Mass/Vol] 4.17 mg/dL High 0.70-1.20 [facility] Comment on above: Performed By: #### L 500.4050, L100.0100, L300.3900 #### [facility] [address] [place], [address] GAP 12 Normal 5-15 [facility] Comment on above: Performed By: #### L 500.4050, L100.0100, L300.3900 #### [facility] [address] [place], [address] GFR/1.73 sq M.predicted among non-blacks MDRD (S/P/Bld) [Vol rate/Area] 16 mL/min/{1.73_m2} Low >60 [facility] Comment on above: Result Comment: mL/m in/1.73m2 CKD-EPI Creatinine Equation (2020) Performed By: #### L 500.4050, L100.0100, L300.3900 #### [facility] [address] [place], [address] Globulin (S) [Mass/Vol] 4.2 g/dL Normal 2.2-4.2 [facility] Comment on above: Performed By: #### L 500.4050, L100.0100, L300.3900 #### [facility] [address] [place], [address] Glucose [Mass/Vol] 77 mg/dL Normal 70-99 [facility] Comment on above: Performed By: #### L 500.4050, L100.0100, L300.3900 #### [facility] [address] [place] [place], [address] Potassium [Moles/Vol] 3.2 mmol/L Low 3.3-5.1 [facility] Comment on above: Performed By: #### L 500.4050, L100.0100, L300.3900 #### [facility] [address] [place], [address] Sodium [Moles/Vol] 131 mmol/L Low 133-145 [facility] Comment on above: Performed By: #### L 500.4050, L100.0100, L300.3900 #### [facility] [address] [place], [address] T PROT 7.1 g/dL Normal 5.9-8.4 [facility] Comment on above: Performed By: #### L 500.4050, L100.0100, L300.3900 #### [facility] [address] [place], [address] Urea nitrogen [Mass/Vol] 43 mg/dL High 4-19 [facility] Comment on above: Performed By: #### L 500.4050, L100.0100, L300.3900 #### [facility] [address] [place], [address] Eosinophil percentageOrdered By: Kayley Melendrez on 02-12-2025 Eosinophils/100 WBC (Bld) 4.7 % 0-5 [facility] Erythrocyte distribution wid th ratioOrdered By: [facility]am[facility]o Melendrez on 02-12-2025 Erythrocyte distribution width (RBC) [Ratio] 18.3 % High 11.6-14.6 [facility] Erythrocyte distribution wid th standard deviationOrdered By: [facility] Healthcarejacob Melendrez on 02-12-2025 Erythrocyte distribution width (RBC) [Ratio] 59.4 fl High 35.1-43.9 [facility] Glomerular filtration rate ( GFR) estimation/1.73 sq m using serum, plasma, or whole bOrdered By: Kayley Melendrez on 02-12-2025 GFR/1.73 sq M.predicted among non-blacks MDRD (S/P/Bld) [Vol rate/Area] 16 mL/min/{1.73_m2} Low >60 [facility] Comment on above: mL/min/1.73m2 CKD-EP I Creatinine Equation (2020) Hematocrit Auto (Bld) [Volum e fraction]Ordered By: Kayley Melendrez on 02-12-2025 Hematocrit (Bld) [Volume fraction] 24.6 % Low 40-54 [facility] Hemoglobin measurementOrdere d By: Kayley Melendrez on 02-12-2025 Hemoglobin (Bld) [Mass/Vol] 8.0 g/dL Low 13.0-16.5 [facility] Immature granulocytes/100 WB C Auto (Bld)Ordered By: Kayley Melendrez on 02-12-2025 Immature granulocytes/100 WBC (Bld) 0.500 % 0.0-0.9 [facility] Comment on above: IG% - Immature Granu locytes (promyelocytes, myelocytes and metamyelocytes) > 1% indicates that a LEFT SHIFT is Present. International normalized rat io (INR) calculationOrdered By: Kayley Melendrez on 02-12-2025 INR Coag (Bld) [Relative time] 1.5 {INR} [facility] - Chemistry and C hemistry - challengeOrdered By: Kayley Melendrez on 02-12-2025 AST [Catalytic activity/Vol] 34 U/L <38 [facility] MCV (mean corpuscular volume ) determinationOrdered By: Kayley Melendrez on 02-12-2025 MCV (RBC) [Entitic vol] 90.1 fL 80-94 [facility] Mean corpuscular hemoglobin (MCH) determinationOrdered By: Kayley Melendrez on 02-12-2025 MCH (RBC) [Entitic mass] 29.3 pg 27.0-32.0 [facility] Mean corpuscular hemoglobin concentration (MCHC) determinationOrdered By: Kayley Melendrez on 02-12-2025 MCHC (RBC) [Mass/Vol] 32.5 g/dL 32-36 [facility] Mean platelet volume determi nationOrdered By: Kayley Melendrez on 02-12-2025 Platelet mean volume (Bld) [Entitic vol] 9.2 fL 6.2-12.0 [facility] Monocyte percentageOrdered B y: Kayley Melendrez on 02-12-2025 Monocytes/100 WBC (Bld) 11.9 % High 0-10 [facility] Neutrophil percentageOrdered By: Kayley Melendrez on 02-12-2025 Neutrophils/100 WBC (Bld) 64.1 % 47-70 [facility] Nucleated red blood cell per centageOrdered By: Kayley Melendrez on 02-12-2025 Nucleated RBC/100 WBC (Bld) [Ratio] 0 % 0-5 [facility] Platelet countOrdered By: Carmen Melendrez on 02-12-2025 Platelets (Bld) [#/Vol] 294 10*3/uL 150-450 [facility] Potassium measurement (mass/ volume)Ordered By: Kayley Melendrez on 02-12-2025 Potassium (Unsp spec) [Mass/Vol] 3.2 mmol/L Low 3.3-5.1 [facility] Prothrombin Time w/INRon INR Coag (PPP) [Relative time] 1.5 {INR} Normal [facility] Comment on above: Performed By: #### L 500.4050, L100.0100, L300.3900 #### [facility] [address] [place], [address] PT Coag (PPP) [Time] 17.9 s High 11.7-14.9 [facility] Comment on above: Performed By: #### L 500.4050, L100.0100, L300.3900 #### [facility] [address] [place], [address] Prothrombin timeOrdered By: Kayley Melendrez on 02-12-2025 PT Coag (PPP) [Time] 17.9 s High 11.7-14.9 [facility] RBC Auto (Bld) [#/Vol]Ordere d By: Kayley Melendrez on 02-12-2025 RBC (Bld) [#/Vol] 2.73 10*6/uL Low 4.6-6.2 [facility] Serum creatinine measurement (mass/volume)Ordered By: Kayley Melendrez on 02-12-2025 Creatinine [Mass/Vol] 4.17 mg/dL High 0.70-1.20 [facility] Serum globulin measurementOr dered By: Kayley Melendrez on 02-12-2025 Globulin (S) [Mass/Vol] 4.2 g/dL 2.2-4.2 [facility] Serum glucose measurement (m ass/volume)Ordered By: Kayley Melendrez on 02-12-2025 Glucose [Mass/Vol] 77 mg/dL 70-99 [facility] Serum or plasma alanine mayorga otransferase (ALT) measurementOrdered By: Kayley Melendrez on 02-12-2025 ALT [Catalytic activity/Vol] 9 U/L <47 [facility] Serum or plasma albumin audrey urement (mass/volume)Ordered By: Kayley Melendrez on 02-12-2025 Albumin [Mass/Vol] 2.9 g/dL Low 3.5-5.0 [facility] Serum or plasma albumin/glob ulin mass ratioOrdered By: Kayley Melendrez on 02-12-2025 Albumin/Globulin [Mass ratio] 0.7 {ratio} Low 0.9-2.4 [facility] Serum or plasma alkaline jacob sphatase measurementOrdered By: Kayley Melendrez on 02-12-2025 ALP [Catalytic activity/Vol] 177 U/L High 40-129 [facility] Serum or plasma calcium audrey urement (mass/volume)Ordered By: Kayley Melendrez on 02-12-2025 Calcium [Mass/Vol] 9.9 mg/dL 7.6-11.0 [facility] Serum or plasma urea nitroge n measurement (mass/volume)Ordered By: Kayley Melendrez on 02-12-2025 Urea nitrogen [Mass/Vol] 43 mg/dL High 4-19 [facility] Sodium levelOrdered By: Omega Melendrez on 02-12-2025 Sodium [Moles/Vol] 131 mmol/L Low 133-145 [facility] Total proteinOrdered By: Lexis Melendrez on 02-12-2025 Protein [Mass/Vol] 7.1 g/dL 5.9-8.4 [facility] White blood cell (WBC) count Ordered By: Kayley Melendrez on 02-12-2025 WBC (Bld) [#/Vol] 7.3 10*3/uL 4.4-11.0 [facility] International normalized rat io (INR) measurement by fingerstickOrdered By: Kayley Melendrez on 02-08-2025 INR Coag (BldC) [Relative time] 2.3 [facility] Comment on above: Critical Value > 4.0 Protime w/INR Fingerstickon 02-08-2025 INR Coag (PPP) [Relative time] 2.3 {INR} Normal [facility] Comment on above: Result Comment: Crit ical Value > 4.0 Performed By: #### L 9200.0000 #### [facility] [address] [place], [place], [id number] Protime Coagsen 24.9 SEC High 11.7-14.9 [facility] Comment on above: Performed By: #### L 9200.0000 #### [facility] [address] [place], [address] Whole blood prothrombin time Ordered By: Kayley Melendrez on 02-08-2025 PT Coag (Bld) [Time] 24.9 s High 11.7-14.9 [facility] International normalized rat io (INR) calculationOrdered By: Jayesh Stubbs on 02-07-2025 INR Coag (Bld) [Relative time] 1.8 {INR} [facility] Prothrombin Time w/INRon INR Coag (PPP) [Relative time] 1.8 {INR} Normal [facility] Comment on above: Order Comment: 413-2 Performed By: #### L 300.3900 #### [facility] [address] [place], [place], [id number] PT Coag (PPP) [Time] 21.1 s High 11.7-14.9 [facility] Comment on above: Order Comment: 413-2 Performed By: #### L 300.3900 #### [facility] [address] [place], [place], [address] Prothrombin timeOrdered By: Jayesh Stubbs on 02-07-2025 PT Coag (PPP) [Time] 21.1 s High 11.7-14.9 [facility] Absolute lymphocyte countOrd ered By: Kayley Melendrez on 02-05-2025 Lymphocytes Auto (Unsp spec) [#/Vol] 1.77 10*3/uL 0.83-4.51 [facility] Absolute neutrophil countOrd ered By: Kayley Melendrez on 02-05-2025 Neutrophils (Bld) [#/Vol] 4.6 10*3/uL 2.0-7.7 [facility] Anion gap in Serum or Plasma Ordered By: Kayley Melendrez on 02-05-2025 Anion gap [Moles/Vol] 18 mmol/L High 5-15 [facility] Automated lymphocyte count a s percentage of total leukocytesOrdered By: Kayley Melendrez on 02-05-2025 Lymphocytes/100 WBC Auto (Unsp spec) 22.0 % 19-41 [facility] BUN/creatinine ratioOrdered By: [facility]jac[facility] Melendrez on 02-05-2025 Urea nitrogen/Creatinine [Mass ratio] 4.1 mg/mg Low 10-20 [facility] Basophil percentageOrdered B y: Kayley Melendrez on 02-05-2025 Basophils/100 WBC (Bld) 1.0 % 0-1 [facility] Bilirubin, totalOrdered By: [facility] Mel[facility] on 02-05-2025 Bilirubin [Mass/Vol] 0.81 mg/dL 0.00-1.30 [facility] CBC W/Diff, Automatedon 01-25 Absolute Lymph 1.77 X10 3/uL Normal 0.83-4.51 [facility] Comment on above: Order Comment: 413.2 Performed By: #### L 500.4050, L100.0100, L300.3900 #### [facility] [address] [place], [address] Absolute Neut 4.6 X10 3/uL Normal 2.0-7.7 [facility] Comment on above: Order Comment: 413.2 Performed By: #### L 500.4050, L100.0100, L300.3900 #### [facility] [address] [place], [address] Basophils/100 WBC (Bld) 1.0 % Normal 0-1 [facility] Comment on above: Order Comment: 413.2 Performed By: #### L 500.4050, L100.0100, L300.3900 #### [facility] [address] [place], [address] Eosinophils/100 WBC (Bld) 4.1 % Normal 0-5 [facility] Comment on above: Order Comment: 413.2 Performed By: #### L 500.4050, L100.0100, L300.3900 #### [facility] [address] [place], [address] Erythrocyte distribution width (RBC) [Ratio] 18.8 % High 11.6-14.6 [facility] Comment on above: Order Comment: 413.2 Performed By: #### L 500.4050, L100.0100, L300.3900 #### [facility] [address] [place], [address] Hematocrit (Bld) [Volume fraction] 28.1 % Low 40-54 [facility] Comment on above: Order Comment: 413.2 Performed By: #### L 500.4050, L100.0100, L300.3900 #### [facility] [address] [place], [address] Hemoglobin (Bld) [Mass/Vol] 8.8 g/dL Low 13.0-16.5 [facility] Comment on above: Order Comment: 413.2 Performed By: #### L 500.4050, L100.0100, L300.3900 #### [facility] [address] [place], [address] IG% 0.600 Normal 0.0-0.9 [facility] Comment on above: Order Comment: 413.2 Result Comment: IG% - Immature Granulocytes (promyelocytes, myelocytes and metamyelocytes) > 1% indicates that a LEFT SHIFT is Present. Performed By: #### L 500.4050, L100.0100, L300.3900 #### [facility] [address] [place], [address] Lymphocytes/100 WBC (Bld) 22.0 % Normal 19-41 [facility] Comment on above: Order Comment: 413.2 Performed By: #### L 500.4050, L100.0100, L300.3900 #### [facility] [address] [place], [address] MCH (RBC) [Entitic mass] 29.0 pg Normal 27.0-32.0 [facility] Comment on above: Order Comment: 413.2 Performed By: #### L 500.4050, L100.0100, L300.3900 #### [facility] [address] [place], [address] MCHC (RBC) [Mass/Vol] 31.3 g/dL Low 32-36 [facility] Comment on above: Order Comment: 413.2 Performed By: #### L 500.4050, L100.0100, L300.3900 #### [facility] [address] [place], [address] MCV (RBC) [Entitic vol] 92.7 fL Normal 80-94 [facility] Comment on above: Order Comment: 413.2 Performed By: #### L 500.4050, L100.0100, L300.3900 #### [facility] [address] [place], [address] Monocytes/100 WBC (Bld) 15.6 % High 0-10 [facility] Comment on above: Order Comment: 413.2 Performed By: #### L 500.4050, L100.0100, L300.3900 #### [facility] [address] [place], [address] Neutrophils/100 WBC (Bld) 56.7 % Normal 47-70 [facility] Comment on above: Order Comment: 413.2 Performed By: #### L 500.4050, L100.0100, L300.3900 #### [facility] [address] [place], [address] Nucleated RBC (Bld) [#/Vol] 0 10*3/uL Normal 0-5 [facility] Comment on above: Order Comment: 413.2 Performed By: #### L 500.4050, L100.0100, L300.3900 #### [facility] [address] [place], [address] Platelet mean volume (Bld) [Entitic vol] 9.2 fL Normal 6.2-12.0 [facility] Comment on above: Order Comment: 413.2 Performed By: #### L 500.4050, L100.0100, L300.3900 #### [facility] [address] [place], [address] Platelets (Bld) [#/Vol] 358 10*3/uL Normal 150-450 [facility] Comment on above: Order Comment: 413.2 Performed By: #### L 500.4050, L100.0100, L300.3900 #### [facility] [address] [place], [address] RBC (Bld) [#/Vol] 3.03 10*6/uL Low 4.6-6.2 [facility] Comment on above: Order Comment: 413.2 Performed By: #### L 500.4050, L100.0100, L300.3900 #### [facility] [address] [place], [address] RDW SD 63.1 fl High 35.1-43.9 [facility] Comment on above: Order Comment: 413.2 Performed By: #### L 500.4050, L100.0100, L300.3900 #### [facility] [address] [place], [address] WBC (Bld) [#/Vol] 8.1 10*3/uL Normal 4.4-11.0 [facility] Comment on above: Order Comment: 413.2 Performed By: #### L 500.4050, L100.0100, L300.3900 #### [facility] [address] [place], [address] Carbon dioxide, total [Moles /volume] in Central venous bloodOrdered By: Kayley Melendrez on 02-05-2025 CO2 [Moles/Vol] 25.9 mmol/L 21.0-32.0 [facility] Chloride assayOrdered By: Carmen Melendrez on 02-05-2025 Chloride [Moles/Vol] 93 mmol/L Low 98-108 [facility] Comprehensive Metabolic Prof ilon 02-05-2025 Albumin [Mass/Vol] 3.1 g/dL Low 3.5-5.0 [facility] Comment on above: Order Comment: 413.2 Performed By: #### L 500.4050, L100.0100, L300.3900 #### [facility] [address] [place], [address] Albumin/Globulin [Mass ratio] 0.7 {ratio} Low 0.9-2.4 [facility] Comment on above: Order Comment: 413.2 Performed By: #### L 500.4050, L100.0100, L300.3900 #### [facility] [address] [place], [address] ALK PHOS 260 U/L High 40-129 [facility] Comment on above: Order Comment: 413.2 Performed By: #### L 500.4050, L100.0100, L300.3900 #### [facility] [address] [place], [address] ALT [Catalytic activity/Vol] 11 U/L Normal <=46 [facility] Comment on above: Order Comment: 413.2 Performed By: #### L 500.4050, L100.0100, L300.3900 #### [facility] [address] [place], [address] AST [Catalytic activity/Vol] 42 U/L High <=37 [facility] Comment on above: Order Comment: 413.2 Performed By: #### L 500.4050, L100.0100, L300.3900 #### [facility] [address] [place], [address] Bilirubin [Mass/Vol] 0.81 mg/dL Normal 0.00-1.30 [facility] Comment on above: Order Comment: 413.2 Performed By: #### L 500.4050, L100.0100, L300.3900 #### [facility] [address] [place], [address] BUN/CRE 4.1 RATIO Low 10-20 [facility] Comment on above: Order Comment: 413.2 Performed By: #### L 500.4050, L100.0100, L300.3900 #### [facility] [address] [place], [address] Calcium [Mass/Vol] 10.0 mg/dL Normal 7.6-11.0 [facility] Comment on above: Order Comment: 413.2 Performed By: #### L 500.4050, L100.0100, L300.3900 #### [facility] [address] [place], [address] Chloride [Moles/Vol] 93 mmol/L Low 98-108 [facility] Comment on above: Order Comment: 413.2 Performed By: #### L 500.4050, L100.0100, L300.3900 #### [facility] [address] [place], [address] CO2 [Moles/Vol] 25.9 mmol/L Normal 21.0-32.0 [facility] Comment on above: Order Comment: 413.2 Performed By: #### L 500.4050, L100.0100, L300.3900 #### [facility] [address] [place], [address] Creatinine [Mass/Vol] 5.27 mg/dL High 0.70-1.20 [facility] Comment on above: Order Comment: 413.2 Performed By: #### L 500.4050, L100.0100, L300.3900 #### [facility] [address] [place], [address] GAP 18 High 5-15 [facility] Comment on above: Order Comment: 413.2 Performed By: #### L 500.4050, L100.0100, L300.3900 #### [facility] [address] [place], [address] GFR/1.73 sq M.predicted among non-blacks MDRD (S/P/Bld) [Vol rate/Area] 12 mL/min/{1.73_m2} Low >60 [facility] Comment on above: Order Comment: 413.2 Result Comment: mL/m in/1.73m2 CKD-EPI Creatinine Equation (2020) Performed By: #### L 500.4050, L100.0100, L300.3900 #### [facility] [address] [place], [address] Globulin (S) [Mass/Vol] 4.3 g/dL High 2.2-4.2 [facility] Comment on above: Order Comment: 413.2 Performed By: #### L 500.4050, L100.0100, L300.3900 #### [facility] [address] [place], [address] Glucose [Mass/Vol] 65 mg/dL Low 70-99 [facility] Comment on above: Order Comment: 413.2 Performed By: #### L 500.4050, L100.0100, L300.3900 #### [facility] [address] [place], [address] Potassium [Moles/Vol] 4.5 mmol/L Normal 3.3-5.1 [facility] Comment on above: Order Comment: 413.2 Performed By: #### L 500.4050, L100.0100, L300.3900 #### [facility] [address] [place], [address] Sodium [Moles/Vol] 136 mmol/L Normal 133-145 [facility] Comment on above: Order Comment: 413.2 Performed By: #### L 500.4050, L100.0100, L300.3900 #### [facility] [address] [place], [address] T PROT 7.4 g/dL Normal 5.9-8.4 [facility] Comment on above: Order Comment: 413.2 Performed By: #### L 500.4050, L100.0100, L300.3900 #### [facility] [address] [place], [address] Urea nitrogen [Mass/Vol] 22 mg/dL High 4-19 [facility] Comment on above: Order Comment: 413.2 Performed By: #### L 500.4050, L100.0100, L300.3900 #### [facility] [address] [place], [address] Eosinophil percentageOrdered By: Kayley Melendrez on 02-05-2025 Eosinophils/100 WBC (Bld) 4.1 % 0-5 [facility] Erythrocyte distribution wid th ratioOrdered By: Kayley Melendrez on 02-05-2025 Erythrocyte distribution width (RBC) [Ratio] 18.8 % High 11.6-14.6 [facility] Erythrocyte distribution wid th standard deviationOrdered By: Kayley Melendrez on 02-05-2025 Erythrocyte distribution width (RBC) [Ratio] 63.1 fl High 35.1-43.9 [facility] Glomerular filtration rate ( GFR) estimation/1.73 sq m using serum, plasma, or whole bOrdered By: Kayley Melendrez on 02-05-2025 GFR/1.73 sq M.predicted among non-blacks MDRD (S/P/Bld) [Vol rate/Area] 12 mL/min/{1.73_m2} Low >60 [facility] Comment on above: mL/min/1.73m2 CKD-EP I Creatinine Equation (2020) Hematocrit Auto (Bld) [Volum e fraction]Ordered By: Kayley Melendrez on 02-05-2025 Hematocrit (Bld) [Volume fraction] 28.1 % Low 40-54 [facility] Hemoglobin measurementOrdere d By: Kayley Melendrez on 02-05-2025 Hemoglobin (Bld) [Mass/Vol] 8.8 g/dL Low 13.0-16.5 [facility] Immature granulocytes/100 WB C Auto (Bld)Ordered By: Kayley Melendrez on 02-05-2025 Immature granulocytes/100 WBC (Bld) 0.600 % 0.0-0.9 [facility] Comment on above: IG% - Immature Granu locytes (promyelocytes, myelocytes and metamyelocytes) > 1% indicates that a LEFT SHIFT is Present. Laboratory - Chemistry and C hemistry - challengeOrdered By: Kayley Melendrez on 02-05-2025 AST [Catalytic activity/Vol] 42 U/L High <38 [facility] MCV (mean corpuscular volume ) determinationOrdered By: Kayley Melendrez on 02-05-2025 MCV (RBC) [Entitic vol] 92.7 fL 80-94 [facility] Mean corpuscular hemoglobin (MCH) determinationOrdered By: Kayley Melendrez on 02-05-2025 MCH (RBC) [Entitic mass] 29.0 pg 27.0-32.0 [facility] Mean corpuscular hemoglobin concentration (MCHC) determinationOrdered By: Kayley Melendrez on 02-05-2025 MCHC (RBC) [Mass/Vol] 31.3 g/dL Low 32-36 [facility] Mean platelet volume determi nationOrdered By: Kayley Melendrez on 02-05-2025 Platelet mean volume (Bld) [Entitic vol] 9.2 fL 6.2-12.0 [facility] Monocyte percentageOrdered B y: Kayley Melendrez on 02-05-2025 Monocytes/100 WBC (Bld) 15.6 % High 0-10 [facility] Neutrophil percentageOrdered By: Kayley Melendrez on 02-05-2025 Neutrophils/100 WBC (Bld) 56.7 % 47-70 [facility] Nucleated red blood cell per centageOrdered By: Kayley Melendrez on 02-05-2025 Nucleated RBC/100 WBC (Bld) [Ratio] 0 % 0-5 [facility] Platelet countOrdered By: Carmen Melendrez on 02-05-2025 Platelets (Bld) [#/Vol] 358 10*3/uL 150-450 [facility] Potassium measurement (mass/ volume)Ordered By: Kayley Melendrez on 02-05-2025 Potassium (Unsp spec) [Mass/Vol] 4.5 mmol/L 3.3-5.1 [facility] RBC Auto (Bld) [#/Vol]Ordere d By: Kayley Melendrez on 02-05-2025 RBC (Bld) [#/Vol] 3.03 10*6/uL Low 4.6-6.2 [facility] Serum creatinine measurement (mass/volume)Ordered By: Kayley Melendrez on 02-05-2025 Creatinine [Mass/Vol] 5.27 mg/dL High 0.70-1.20 [facility] Serum globulin measurementOr dered By: Kayley Melendrez on 02-05-2025 Globulin (S) [Mass/Vol] 4.3 g/dL High 2.2-4.2 [facility] Serum glucose measurement (m ass/volume)Ordered By: Kayley Melendrez on 02-05-2025 Glucose [Mass/Vol] 65 mg/dL Low 70-99 [facility] Serum or plasma alanine mayorga otransferase (ALT) measurementOrdered By: Kayley Melendrez on 02-05-2025 ALT [Catalytic activity/Vol] 11 U/L <47 [facility] Serum or plasma albumin audrey urement (mass/volume)Ordered By: Kayley Melendrez on 02-05-2025 Albumin [Mass/Vol] 3.1 g/dL Low 3.5-5.0 [facility] Serum or plasma albumin/glob ulin mass ratioOrdered By: Kayley Melendrez on 02-05-2025 Albumin/Globulin [Mass ratio] 0.7 {ratio} Low 0.9-2.4 [facility] Serum or plasma alkaline jacob sphatase measurementOrdered By: Kayley Melendrez on 02-05-2025 ALP [Catalytic activity/Vol] 260 U/L High 40-129 [facility] Serum or plasma calcium audrey urement (mass/volume)Ordered By: Kayley Melendrez on 02-05-2025 Calcium [Mass/Vol] 10.0 mg/dL 7.6-11.0 [facility] Serum or plasma urea nitroge n measurement (mass/volume)Ordered By: Kayley Melendrez on 02-05-2025 Urea nitrogen [Mass/Vol] 22 mg/dL High 4-19 [facility] Sodium levelOrdered By: Omega Melendrez on 02-05-2025 Sodium [Moles/Vol] 136 mmol/L 133-145 [facility] Total proteinOrdered By: Lexis Melendrez on 02-05-2025 Protein [Mass/Vol] 7.4 g/dL 5.9-8.4 [facility] White blood cell (WBC) count Ordered By: Kayley Melendrez on 02-05-2025 WBC (Bld) [#/Vol] 8.1 10*3/uL 4.4-11.0 [facility] CBC panel Auto (Bld)on 02-01 Erythrocyte distribution width (RBC) [Ratio] 18.8 % High 11.5 - 15.0 % [facility] Hematocrit (Bld) [Volume fraction] 28.3 % Low 40.0 - 52.0 % [facility] Hemoglobin (Bld) [Mass/Vol] 8.9 g/dL Low 13.0 - 18.0 g/dL [facility] Interpretation and review of laboratory results Abnormal [facility] MCH (RBC) [Entitic mass] 28.2 pg 26. 0 - 34.[address] [facility] MCHC (RBC) [Mass/Vol] 31.4 % 30.5 - 36.0 % [facility] MCV (RBC) [Entitic vol] 89.6 fL 77.0 - 99.[address] [facility] Platelet mean volume (Bld) [Entitic vol] 9 fL 9.0 - 12.[address] [facility] Platelets (Bld) [#/Vol] 282 10*3/uL 140 - 440 10*3/uL [facility] RBC (Bld) [#/Vol] 3.16 10*6/uL Low 4.40 - 5.9 0 10*6/uL [facility] WBC (Bld) [#/Vol] 7.9 10*3/uL 3.6 - 10.7 10*3/uL [facility] Comprehensive metabolic 1998 panelon 02-01-2025 Albumin [Mass/Vol] 2.1 g/dL Low 3.5 - 5.0 g/dL [facility] ALP [Catalytic activity/Vol] 226 U/L High 40 - 150 U/L [facility] ALT [Catalytic activity/Vol] 10 U/L NINF - 40 U/L [facility] Anion gap [Moles/Vol] 11 mmol/L 3 - 13 mmol/L [facility] AST [Catalytic activity/Vol] 32 U/L NINF - 34 U/L [facility] Bilirubin [Mass/Vol] 0.9 mg/dL NINF - 1.2 mg/dL [facility] Calcium [Mass/Vol] 9.7 mg/dL 8.4 - 10. 2 mg/dL [facility] Chloride [Moles/Vol] 99 mmol/L 98 - 10 7 mmol/L [facility] CO2 [Moles/Vol] 26 mmol/L 22 - 29 mmol/L [facility] Creatinine [Mass/Vol] 2.39 mg/dL High 0.72 - 1.25 mg/dL [facility] GFR/1.73 sq M.predicted (S/P/Bld) [Vol rate/Area] 30.5 mL/min Low - PINF [facility] Glucose [Mass/Vol] 87 mg/dL 74 - 100 mg/dL [facility] Interpretation and review of laboratory results Abnormal [facility] Potassium [Moles/Vol] 3.7 mmol/L 3.5 - 5.1 mmol/L [facility] Protein [Mass/Vol] 7.4 g/dL 6.4 - 8.3 g/dL [facility] Sodium [Moles/Vol] 136 mmol/L 136 - 145 mmol/L [facility] Urea nitrogen [Mass/Vol] 7 mg/dL Low 9 - 23 mg/d L [facility] Hemoglobin (Bld) [Mass/Vol]O rdered By: Rosa Juares on 02-01-2025 Hematocrit (Bld) [Volume fraction] 28.8 % Low 40.0 - 52.0 % [facility] Interpretation and review of laboratory results Abnormal [facility] Laboratory - Chemistry and C hemistry - challengeon 02-01-2025 Magnesium [Mass/Vol] 1.9 mg/dL 1.6 - 2 .6 mg/dL [facility] Laboratory - Coagulationon 0 02-01-2025 PT Coag (Bld) [Time] 20.3 s High 9.0 - 12.0 s [facility] Laboratory - Hematology and Cell countsOrdered By: Rosa Juares on 02-01-2025 Hemoglobin (Bld) [Mass/Vol] 8.9 g/dL Low 13.0 - 18.0 g/dL [facility] Magnesium [Mass/Vol]on 02-01 [facility] No Panel Informationon 02-01 Interpretation and review of laboratory results Normal [facility] PT Coag (Bld) [Time]on 02-01 INR Coag (PPP) [Relative time] 2 {INR} High 0.9 - 1.1 [facility] Interpretation and review of laboratory results Abnormal [facility] Phosphate [Moles/Vol]on Phosphate [Mass/Vol] 3.4 mg/dL 2.3 - 4 .7 mg/dL [facility] CBC panel Auto (Bld)on 01-31 Erythrocyte distribution width (RBC) [Ratio] 19.2 % High 11.5 - 15.0 % [facility] Hematocrit (Bld) [Volume fraction] 27.9 % Low 40.0 - 52.0 % [facility] Hemoglobin (Bld) [Mass/Vol] 8.8 g/dL Low 13.0 - 18.0 g/dL [facility] Interpretation and review of laboratory results Abnormal [facility] MCH (RBC) [Entitic mass] 28.4 pg 26. 0 - 34.[address] [facility] MCHC (RBC) [Mass/Vol] 31.5 % 30.5 - 36.0 % [facility] MCV (RBC) [Entitic vol] 90 fL 77.0 - 99.[address] [facility] Platelet mean volume (Bld) [Entitic vol] 9 fL 9.0 - 12.[address] [facility] Platelets (Bld) [#/Vol] 278 10*3/uL 140 - 440 10*3/uL [facility] RBC (Bld) [#/Vol] 3.1 10*6/uL Low 4.40 - 5.9 0 10*6/uL [facility] WBC (Bld) [#/Vol] 9.3 10*3/uL 3.6 - 10.7 10*3/uL [facility] Comprehensive metabolic 1998 panelon 01-31-2025 Albumin [Mass/Vol] 2.1 g/dL Low 3.5 - 5.0 g/dL [facility] ALP [Catalytic activity/Vol] 218 U/L High 40 - 150 U/L [facility] ALT [Catalytic activity/Vol] 11 U/L NINF - 40 U/L [facility] Anion gap [Moles/Vol] 12 mmol/L 3 - 13 mmol/L [facility] AST [Catalytic activity/Vol] 31 U/L NINF - 34 U/L [facility] Bilirubin [Mass/Vol] 0.8 mg/dL NINF - 1.2 mg/dL [facility] Calcium [Mass/Vol] 10 mg/dL 8.4 - 10. 2 mg/dL [facility] Chloride [Moles/Vol] 99 mmol/L 98 - 10 7 mmol/L [facility] CO2 [Moles/Vol] 27 mmol/L 22 - 29 mmol/L [facility] Creatinine [Mass/Vol] 3.64 mg/dL High 0.72 - 1.25 mg/dL [facility] GFR/1.73 sq M.predicted (S/P/Bld) [Vol rate/Area] 18.4 mL/min Low - PINF [facility] Glucose [Mass/Vol] 87 mg/dL 74 - 100 mg/dL [facility] Interpretation and review of laboratory results Abnormal [facility] Potassium [Moles/Vol] 4.3 mmol/L 3.5 - 5.1 mmol/L [facility] Protein [Mass/Vol] 7.3 g/dL 6.4 - 8.3 g/dL [facility] Sodium [Moles/Vol] 138 mmol/L 136 - 145 mmol/L [facility] Urea nitrogen [Mass/Vol] 15 mg/dL 9 - 23 mg/d L [facility] Hemoglobin (Bld) [Mass/Vol]o n 01-31-2025 Hematocrit (Bld) [Volume fraction] 28.8 % Low 40.0 - 52.0 % [facility] Interpretation and review of laboratory results Abnormal [facility] Laboratory - Chemistry and C hemistry - challengeon 01-31-2025 Magnesium [Mass/Vol] 2 mg/dL 1.6 - 2 .6 mg/dL [facility] Laboratory - Coagulationon 01-31-2025 PT Coag (Bld) [Time] 22.4 s High 9.0 - 12.0 s [facility] Laboratory - Hematology and Cell countson 01-31-2025 Hemoglobin (Bld) [Mass/Vol] 9.2 g/dL Low 13.0 - 18.0 g/dL [facility] Magnesium [Mass/Vol]on 01-31 [facility] No Panel Informationon 01-31 Interpretation and review of laboratory results Normal [facility] PT Coag (Bld) [Time]on 01-31 INR Coag (PPP) [Relative time] 2.2 {INR} High 0.9 - 1.1 [facility] Interpretation and review of laboratory results Abnormal [facility] Phosphate [Moles/Vol]on Phosphate [Mass/Vol] 4.6 mg/dL 2.3 - 4 .7 mg/dL [facility] Basic metabolic 1998 panelon 01-30-2025 Anion gap [Moles/Vol] 13 mmol/L 3 - 13 mmol/L [facility] Calcium [Mass/Vol] 9.6 mg/dL 8.4 - 10. 2 mg/dL [facility] Chloride [Moles/Vol] 99 mmol/L 98 - 10 7 mmol/L [facility] CO2 [Moles/Vol] 23 mmol/L 22 - 29 mmol/L [facility] Creatinine [Mass/Vol] 2.56 mg/dL High 0.72 - 1.25 mg/dL [facility] GFR/1.73 sq M.predicted (S/P/Bld) [Vol rate/Area] 28.1 mL/min Low - PINF [facility] Glucose [Mass/Vol] 88 mg/dL 74 - 100 mg/dL [facility] Interpretation and review of laboratory results Abnormal [facility] Potassium [Moles/Vol] 3.7 mmol/L 3.5 - 5.1 mmol/L [facility] Sodium [Moles/Vol] 135 mmol/L Low 136 - 145 mmol/L [facility] Urea nitrogen [Mass/Vol] 10 mg/dL 9 - 23 mg/d L [facility] CBC panel Auto (Bld)on 01-30 Erythrocyte distribution width (RBC) [Ratio] 18.9 % High 11.5 - 15.0 % [facility] Hematocrit (Bld) [Volume fraction] 28.1 % Low 40.0 - 52.0 % [facility] Hemoglobin (Bld) [Mass/Vol] 8.7 g/dL Low 13.0 - 18.0 g/dL [facility] Interpretation and review of laboratory results Abnormal [facility] MCH (RBC) [Entitic mass] 27.6 pg 26. 0 - 34.[address] [facility] MCHC (RBC) [Mass/Vol] 31 % 30.5 - 36.0 % [facility] MCV (RBC) [Entitic vol] 89.2 fL 77.0 - 99.[address] [facility] Platelet mean volume (Bld) [Entitic vol] 9.1 fL 9.0 - 12.[address] [facility] Platelets (Bld) [#/Vol] 276 10*3/uL 140 - 440 10*3/uL [facility] RBC (Bld) [#/Vol] 3.15 10*6/uL Low 4.40 - 5.9 0 10*6/uL [facility] WBC (Bld) [#/Vol] 8.8 10*3/uL 3.6 - 10.7 10*3/uL [facility] Hemoglobin (Bld) [Mass/Vol]O rdered By: Rikki Caballero on 01-30-2025 Hematocrit (Bld) [Volume fraction] 31.5 % Low 40.0 - 52.0 % [facility] Interpretation and review of laboratory results Abnormal [facility] Laboratory - Chemistry and C hemistry - challengeon 01-30-2025 Glucose [Mass/Vol] 106 mg/dL High 70 - 100 mg/dL [facility] Glucose [Mass/Vol] 107 mg/dL High 70 - 100 mg/dL [facility] Glucose [Mass/Vol] 77 mg/dL 70 - 100 mg/dL [facility] Magnesium [Mass/Vol] 1.9 mg/dL 1.6 - 2 .6 mg/dL [facility] Laboratory - Coagulationon 0 01-30-2025 PT Coag (Bld) [Time] 24.9 s High 9.0 - 12.0 s [facility] Laboratory - Hematology and Cell countsOrdered By: Rikki Caballero on 01-30-2025 Hemoglobin (Bld) [Mass/Vol] 9.8 g/dL Low 13.0 - 18.0 g/dL [facility] Magnesium [Mass/Vol]on 01-30 Interpretation and review of laboratory results Normal [facility] No Panel Informationon 01-30 Interpretation and review of laboratory results Abnormal [facility] RADIOLOGY SYSTEM [facility] RADIOLOGY SYSTEM [facility] Radiology Study observation (narrative) [facility] Interpretation and review of laboratory results Abnormal [facility] Interpretation and review of laboratory results Normal [facility] Blood Expiration Date [id number] S [facility] Crossmatch interpretation COMP [facility] Dispense Status Released from [employer] [facility] Product Blood Type 9500 [facility] PRODUCT CODE [id number] [facility] ABO O [facility] Unit Number [id number] [facility] alth Unit RH Negative [facility] Unit Volume 300 mL [facility] No Panel InformationOrdered By: Jun Borrero on 01-30-2025 [facility] Work Phone: PT Coag (Bld) [Time]on 01-30 INR Coag (PPP) [Relative time] 2.5 {INR} High 0.9 - 1.1 [facility] Interpretation and review of laboratory results Abnormal [facility] Phosphate [Moles/Vol]on Interpretation and review of laboratory results Normal [facility] Phosphate [Mass/Vol] 3.7 mg/dL 2.3 - 4 .7 mg/dL [facility] Basic metabolic 1998 panelon 01-29-2025 Anion gap [Moles/Vol] 17 mmol/L High 3 - 13 mmol/L [facility] Calcium [Mass/Vol] 9.8 mg/dL 8.4 - 10. 2 mg/dL [facility] Chloride [Moles/Vol] 94 mmol/L Low 98 - 10 7 mmol/L [facility] CO2 [Moles/Vol] 23 mmol/L 22 - 29 mmol/L [facility] Creatinine [Mass/Vol] 4.17 mg/dL High 0.72 - 1.25 mg/dL [facility] GFR/1.73 sq M.predicted (S/P/Bld) [Vol rate/Area] 15.6 mL/min Low - PINF [facility] Glucose [Mass/Vol] 80 mg/dL 74 - 100 mg/dL [facility] Potassium [Moles/Vol] 3.7 mmol/L 3.5 - 5.1 mmol/L [facility] Sodium [Moles/Vol] 134 mmol/L Low 136 - 145 mmol/L [facility] Urea nitrogen [Mass/Vol] 21 mg/dL 9 - 23 mg/d L [facility] CBC panel Auto (Bld)on 01-29 Erythrocyte distribution width (RBC) [Ratio] 19 % High 11.5 - 15.0 % [facility] Hematocrit (Bld) [Volume fraction] 27.3 % Low 40.0 - 52.0 % [facility] Hemoglobin (Bld) [Mass/Vol] 8.6 g/dL Low 13.0 - 18.0 g/dL [facility] Interpretation and review of laboratory results Abnormal [facility] MCH (RBC) [Entitic mass] 28.1 pg 26. 0 - 34.[address] [facility] MCHC (RBC) [Mass/Vol] 31.5 % 30.5 - 36.0 % [facility] MCV (RBC) [Entitic vol] 89.2 fL 77.0 - 99.[address] [facility] Platelet mean volume (Bld) [Entitic vol] 9.4 fL 9.0 - 12.[address] [facility] Platelets (Bld) [#/Vol] 271 10*3/uL 140 - 440 10*3/uL [facility] RBC (Bld) [#/Vol] 3.06 10*6/uL Low 4.40 - 5.9 0 10*6/uL [facility] WBC (Bld) [#/Vol] 9.4 10*3/uL 3.6 - 10.7 10*3/uL [facility] Laboratory - Chemistry and C hemistry - challengeon 01-29-2025 Glucose [Mass/Vol] 82 mg/dL 70 - 100 mg/dL [facility] Glucose [Mass/Vol] 87 mg/dL 70 - 100 mg/dL [facility] Glucose [Mass/Vol] 91 mg/dL 70 - 100 mg/dL [facility] Magnesium [Mass/Vol] 2 mg/dL 1.6 - 2 .6 mg/dL [facility] Laboratory - Coagulationon 0 01-29-2025 Coagulation factor VIII activity actual/normal Coag (PPP) [Relative time] 412 % High 56 - 191 % [facility] vWf Ag actual/normal IA (PPP) [Relative mass conc] 281 % High 52 - 214 % [facility] vWf multimers Ql (PPP) See Note [facility] vWf ristocetin cofactor act actual/normal Platelet aggregation (PPP) [Relative time] 200 % 51 - 215 % [facility] th PT Coag (Bld) [Time] 24 s High 9.0 - 12.0 s [facility] Magnesium [Mass/Vol]on 01-29 Interpretation and review of laboratory results Normal [facility] No Panel Informationon 01-29 Interpretation and review of laboratory results Normal [facility] Interpretation and review of laboratory results Normal [facility] Interpretation and review of laboratory results Abnormal [facility] Interpretation and review of laboratory results Normal [facility] Interpretation and review of laboratory results Abnormal [facility] Interpretation and review of laboratory results Abnormal [facility] PT Coag (Bld) [Time]on 01-29 INR Coag (PPP) [Relative time] 2.4 {INR} High 0.9 - 1.1 [facility] Phosphate [Moles/Vol]on Phosphate [Mass/Vol] 4.9 mg/dL High 2.3 - 4 .7 mg/dL [facility] aPTT Coag (Bld) [Time]on aPTT Coag (PPP) [Time] 51.4 s High 20.0 - 30.5 s [facility] Basic metabolic 1998 panelon 01-28-2025 Anion gap [Moles/Vol] 13 mmol/L 3 - 13 mmol/L [facility] Calcium [Mass/Vol] 10 mg/dL 8.4 - 10. 2 mg/dL [facility] Chloride [Moles/Vol] 98 mmol/L 98 - 10 7 mmol/L [facility] CO2 [Moles/Vol] 26 mmol/L 22 - 29 mmol/L [facility] Creatinine [Mass/Vol] 3.37 mg/dL High 0.72 - 1.25 mg/dL [facility] GFR/1.73 sq M.predicted (S/P/Bld) [Vol rate/Area] 20.2 mL/min Low - PINF [facility] Glucose [Mass/Vol] 82 mg/dL 74 - 100 mg/dL [facility] Interpretation and review of laboratory results Abnormal [facility] Potassium [Moles/Vol] 3.6 mmol/L 3.5 - 5.1 mmol/L [facility] Sodium [Moles/Vol] 137 mmol/L 136 - 145 mmol/L [facility] Urea nitrogen [Mass/Vol] 14 mg/dL 9 - 23 mg/d L [facility] CBC panel Auto (Bld)on 01-28 Erythrocyte distribution width (RBC) [Ratio] 19 % High 11.5 - 15.0 % [facility] Hematocrit (Bld) [Volume fraction] 26.3 % Low 40.0 - 52.0 % [facility] Hemoglobin (Bld) [Mass/Vol] 8.5 g/dL Low 13.0 - 18.0 g/dL [facility] Interpretation and review of laboratory results Abnormal [facility] MCH (RBC) [Entitic mass] 28.2 pg 26. 0 - 34.[address] [facility] MCHC (RBC) [Mass/Vol] 32.3 % 30.5 - 36.0 % [facility] MCV (RBC) [Entitic vol] 87.4 fL 77.0 - 99.[address] [facility] Platelet mean volume (Bld) [Entitic vol] 9.3 fL 9.0 - 12.[address] [facility] Platelets (Bld) [#/Vol] 240 10*3/uL 140 - 440 10*3/uL [facility] RBC (Bld) [#/Vol] 3.01 10*6/uL Low 4.40 - 5.9 0 10*6/uL [facility] WBC (Bld) [#/Vol] 9.8 10*3/uL 3.6 - 10.7 10*3/uL [facility] Laboratory - Chemistry and C hemistry - challengeon 01-28-2025 Glucose [Mass/Vol] 127 mg/dL High 70 - 100 mg/dL [facility] Magnesium [Mass/Vol] 2 mg/dL 1.6 - 2 .6 mg/dL [facility] Laboratory - Coagulationon 0 01-28-2025 PT Coag (Bld) [Time] 21.9 s High 9.0 - 12.0 s [facility] Magnesium [Mass/Vol]on 01-28 Interpretation and review of laboratory results Normal [facility] No Panel Informationon 01-28 Interpretation and review of laboratory results Abnormal [facility] Interpretation and review of laboratory results Abnormal [facility] PT Coag (Bld) [Time]on 01-28 INR Coag (PPP) [Relative time] 2.2 {INR} High 0.9 - 1.1 [facility] Phosphate [Moles/Vol]on Interpretation and review of laboratory results Abnormal [facility] Phosphate [Mass/Vol] 4.9 mg/dL High 2.3 - 4 .7 mg/dL [facility] aPTT Coag (Bld) [Time]on aPTT Coag (PPP) [Time] 49 s High 20.0 - 30.[address] [facility] Interpretation and review of laboratory results Abnormal [facility] aPTT Coag (PPP) [Time] 46.3 s High 20.0 - 30.5 s [facility] Basic metabolic 1998 panelon 01-27-2025 Anion gap [Moles/Vol] 17 mmol/L High 3 - 13 mmol/L [facility] Calcium [Mass/Vol] 9.9 mg/dL 8.4 - 10. 2 mg/dL [facility] Chloride [Moles/Vol] 99 mmol/L 98 - 10 7 mmol/L [facility] CO2 [Moles/Vol] 23 mmol/L 22 - 29 mmol/L [facility] Creatinine [Mass/Vol] 2.27 mg/dL High 0.72 - 1.25 mg/dL [facility] GFR/1.73 sq M.predicted (S/P/Bld) [Vol rate/Area] 32.4 mL/min Low - PINF [facility] Glucose [Mass/Vol] 115 mg/dL High 74 - 100 mg/dL [facility] Interpretation and review of laboratory results Abnormal [facility] Potassium [Moles/Vol] 3.9 mmol/L 3.5 - 5.1 mmol/L [facility] Sodium [Moles/Vol] 139 mmol/L 136 - 145 mmol/L [facility] Urea nitrogen [Mass/Vol] 9 mg/dL 9 - 23 mg/d L [facility] CBC panel Auto (Bld)on 01-27 Erythrocyte distribution width (RBC) [Ratio] 19.1 % High 11.5 - 15.0 % [facility] Hematocrit (Bld) [Volume fraction] 28.3 % Low 40.0 - 52.0 % [facility] Hemoglobin (Bld) [Mass/Vol] 9 g/dL Low 13.0 - 18.0 g/dL [facility] Interpretation and review of laboratory results Abnormal [facility] MCH (RBC) [Entitic mass] 27.6 pg 26. 0 - 34.[address] [facility] MCHC (RBC) [Mass/Vol] 31.8 % 30.5 - 36.0 % [facility] MCV (RBC) [Entitic vol] 86.8 fL 77.0 - 99.[address] [facility] Platelet mean volume (Bld) [Entitic vol] 8.7 fL Low 9.0 - 12.[address] [facility] Platelets (Bld) [#/Vol] 273 10*3/uL 140 - 440 10*3/uL [facility] RBC (Bld) [#/Vol] 3.26 10*6/uL Low 4.40 - 5.9 0 10*6/uL [facility] WBC (Bld) [#/Vol] 10 10*3/uL 3.6 - 10.7 10*3/uL [facility] Hemoglobin (Bld) [Mass/Vol]o n 01-27-2025 Hematocrit (Bld) [Volume fraction] 26.3 % Low 40.0 - 52.0 % [facility] Interpretation and review of laboratory results Abnormal [facility] Laboratory - Chemistry and C hemistry - challengeon 01-27-2025 Glucose [Mass/Vol] 102 mg/dL High 70 - 100 mg/dL [facility] Glucose [Mass/Vol] 127 mg/dL High 70 - 100 mg/dL [facility] Glucose [Mass/Vol] 87 mg/dL 70 - 100 mg/dL [facility] Magnesium [Mass/Vol] 1.9 mg/dL 1.6 - 2 .6 mg/dL [facility] Laboratory - Coagulationon 01-27-2025 PT Coag (Bld) [Time] 19.9 s High 9.0 - 12.0 s [facility] Laboratory - Hematology and Cell countson 01-27-2025 Hemoglobin (Bld) [Mass/Vol] 8.4 g/dL Low 13.0 - 18.0 g/dL [facility] Magnesium [Mass/Vol]on 01-27 [facility] No Panel Informationon 01-27 Interpretation and review of laboratory results Abnormal [facility] Interpretation and review of laboratory results Abnormal [facility] Interpretation and review of laboratory results Normal [facility] Interpretation and review of laboratory results Abnormal [facility] Interpretation and review of laboratory results Normal [facility] PT Coag (Bld) [Time]on 01-27 INR Coag (PPP) [Relative time] 1.9 {INR} High 0.9 - 1.1 [facility] Phosphate [Moles/Vol]on Phosphate [Mass/Vol] 3.4 mg/dL 2.3 - 4 .7 mg/dL [facility] aPTT Coag (Bld) [Time]on aPTT Coag (PPP) [Time] 47.9 s High 20.0 - 30.[address] [facility] Interpretation and review of laboratory results Abnormal [facility] aPTT Coag (PPP) [Time] 49.6 s High 20.0 - 30.[address] [facility] Interpretation and review of laboratory results Abnormal [facility] aPTT Coag (PPP) [Time] 45 s High 20.0 - 30.[address] [facility] Interpretation and review of laboratory results Abnormal [facility] aPTT Coag (PPP) [Time] 40.2 s High 20.0 - 30.5 s [facility] Basic metabolic 1998 panelon 01-26-2025 Anion gap [Moles/Vol] 16 mmol/L High 3 - 13 mmol/L [facility] Calcium [Mass/Vol] 9 mg/dL 8.4 - 10. 2 mg/dL [facility] Chloride [Moles/Vol] 100 mmol/L 98 - 10 7 mmol/L [facility] CO2 [Moles/Vol] 20 mmol/L Low 22 - 29 mmol/L [facility] Creatinine [Mass/Vol] 3.37 mg/dL High 0.72 - 1.25 mg/dL [facility] GFR/1.73 sq M.predicted (S/P/Bld) [Vol rate/Area] 20.2 mL/min Low - PINF [facility] Glucose [Mass/Vol] 75 mg/dL 74 - 100 mg/dL [facility] Interpretation and review of laboratory results Abnormal [facility] Potassium [Moles/Vol] 5.1 mmol/L 3.5 - 5.1 mmol/L [facility] Sodium [Moles/Vol] 136 mmol/L 136 - 145 mmol/L [facility] Urea nitrogen [Mass/Vol] 19 mg/dL 9 - 23 mg/d L [facility] CBC panel Auto (Bld)Ordered By: Brandy Ross on 01-26-2025 Erythrocyte distribution width (RBC) [Ratio] 19.3 % High 11.5 - 15.0 % [facility] Hematocrit (Bld) [Volume fraction] 21 % Low 40.0 - 52.0 % [facility] Hemoglobin (Bld) [Mass/Vol] 6.7 g/dL Critically low 13.0 - 18.0 g/dL [facility] Interpretation and review of laboratory results Abnormal [facility] MCH (RBC) [Entitic mass] 27.8 pg 26. 0 - 34.[address] [facility] MCHC (RBC) [Mass/Vol] 31.9 % 30.5 - 36.0 % [facility] MCV (RBC) [Entitic vol] 87.1 fL 77.0 - 99.[address] [facility] Platelet mean volume (Bld) [Entitic vol] 10 fL 9.0 - 12.[address] [facility] Platelets (Bld) [#/Vol] 265 10*3/uL 140 - 440 10*3/uL [facility] RBC (Bld) [#/Vol] 2.41 10*6/uL Low 4.40 - 5.9 0 10*6/uL [facility] WBC (Bld) [#/Vol] 8.7 10*3/uL 3.6 - 10.7 10*3/uL [facility] HBV surface Ab IA Qnon 01-26 [facility] HBV surface Ag IA Qlon 01-26 Interpretation and review of laboratory results Normal [facility] Hemoglobin (Bld) [Mass/Vol]o n 01-26-2025 Hematocrit (Bld) [Volume fraction] 27.9 % Low 40.0 - 52.0 % [facility] Interpretation and review of laboratory results Abnormal [facility] Hematocrit (Bld) [Volume fraction] 28.4 % Low 40.0 - 52.0 % [facility] Interpretation and review of laboratory results Abnormal [facility] Laboratory - Chemistry and C hemistry - challengeon 01-26-2025 Magnesium [Mass/Vol] 2 mg/dL 1.6 - 2 .6 mg/dL [facility] Laboratory - Coagulationon 0 01-26-2025 PT Coag (Bld) [Time] 18.3 s High 9.0 - 12.0 s [facility] Laboratory - Hematology and Cell countson 01-26-2025 Hemoglobin (Bld) [Mass/Vol] 9 g/dL Low 13.0 - 18.0 g/dL [facility] Hemoglobin (Bld) [Mass/Vol] 8.9 g/dL Low 13.0 - 18.0 g/dL [facility] Laboratory - Microbiology an d Antimicrobial susceptibilityon 01-26-2025 HBV surface Ab IA Qn mIU/mL [facility] HBV surface Ag IA Ql Not detected Not Detected [facility] Magnesium [Mass/Vol]on 01-26 Interpretation and review of laboratory results Normal [facility] No Panel Informationon 01-26 [facility] Blood Expiration Date [id number] S [facility] Crossmatch interpretation COMP [facility] Dispense Status Transfused [facility] Product Blood Type 9500 [facility] PRODUCT CODE [id number] [facility] ABO O [facility] Unit Number [id number] [facility] Unit RH Negative [facility] Unit Volume 300 mL [facility] Interpretation and review of laboratory results Abnormal [facility] PT Coag (Bld) [Time]on 01-26 INR Coag (PPP) [Relative time] 1.8 {INR} High 0.9 - 1.1 [facility] Phosphate [Moles/Vol]on Interpretation and review of laboratory results Abnormal [facility] Phosphate [Mass/Vol] 5.3 mg/dL High 2.3 - 4 .7 mg/dL [facility] aPTT Coag (Bld) [Time]on aPTT Coag (PPP) [Time] 41.6 s High 20.0 - 30.[address] [facility] Interpretation and review of laboratory results Abnormal [facility] aPTT Coag (PPP) [Time] 47 s High 20.0 - 30.5 s [facility] aPTT Coag (Bld) [Time]Ordere d By: Alan Santos on 01-26-2025 aPTT Coag (PPP) [Time] s Critically high 20.0 - [address] [facility] Interpretation and review of laboratory results Abnormal [facility] Basic metabolic 1998 panelon 01-25-2025 Anion gap [Moles/Vol] 16 mmol/L High 3 - 13 mmol/L [facility] Calcium [Mass/Vol] 10.1 mg/dL 8.4 - 10. 2 mg/dL [facility] Chloride [Moles/Vol] 98 mmol/L 98 - 10 7 mmol/L [facility] CO2 [Moles/Vol] 24 mmol/L 22 - 29 mmol/L [facility] Creatinine [Mass/Vol] 2.54 mg/dL High 0.72 - 1.25 mg/dL [facility] GFR/1.73 sq M.predicted (S/P/Bld) [Vol rate/Area] 28.3 mL/min Low - PINF [facility] Glucose [Mass/Vol] 74 mg/dL 74 - 100 mg/dL [facility] Interpretation and review of laboratory results Abnormal [facility] Potassium [Moles/Vol] 3.9 mmol/L 3.5 - 5.1 mmol/L [facility] Sodium [Moles/Vol] 138 mmol/L 136 - 145 mmol/L [facility] Urea nitrogen [Mass/Vol] 15 mg/dL 9 - 23 mg/d L [facility] Blood type and Crossmatch pa freida (Bld)on 01-25-2025 ABO group Nom (Bld) O [facility] Blood group antibody screen GEL Ql Negative [facility] D Ag Ql (RBC) Negative [facility] CBC panel Auto (Bld)on 01-25 Erythrocyte distribution width (RBC) [Ratio] 19.2 % High 11.5 - 15.0 % [facility] Hematocrit (Bld) [Volume fraction] 22.5 % Low 40.0 - 52.0 % [facility] Hemoglobin (Bld) [Mass/Vol] 7 g/dL Low 13.0 - 18.0 g/dL [facility] Interpretation and review of laboratory results Abnormal [facility] MCH (RBC) [Entitic mass] 27.6 pg 26. 0 - 34.[address] [facility] MCHC (RBC) [Mass/Vol] 31.1 % 30.5 - 36.0 % [facility] MCV (RBC) [Entitic vol] 88.6 fL 77.0 - 99.[address] [facility] Platelet mean volume (Bld) [Entitic vol] 8.8 fL Low 9.0 - 12.[address] [facility] Platelets (Bld) [#/Vol] 285 10*3/uL 140 - 440 10*3/uL [facility] RBC (Bld) [#/Vol] 2.54 10*6/uL Low 4.40 - 5.9 0 10*6/uL [facility] WBC (Bld) [#/Vol] 10.2 10*3/uL 3.6 - 10.7 10*3/uL [facility] Hemoglobin (Bld) [Mass/Vol]o n 01-25-2025 Hematocrit (Bld) [Volume fraction] 23.8 % Low 40.0 - 52.0 % [facility] Interpretation and review of laboratory results Abnormal [facility] Hematocrit (Bld) [Volume fraction] 24.4 % Low 40.0 - 52.0 % [facility] Interpretation and review of laboratory results Abnormal [facility] Hematocrit (Bld) [Volume fraction] 24.6 % Low 40.0 - 52.0 % [facility] Interpretation and review of laboratory results Abnormal [facility] Hematocrit (Bld) [Volume fraction] 20.4 % Low 40.0 - 52.0 % [facility] Interpretation and review of laboratory results Abnormal [facility] Laboratory - Chemistry and C hemistry - challengeon 01-25-2025 Magnesium [Mass/Vol] 2.1 mg/dL 1.6 - 2 .6 mg/dL [facility] Laboratory - Coagulationon 0 01-25-2025 PT Coag (Bld) [Time] 17.4 s High 9.0 - 12.0 s [facility] PT Coag (Bld) [Time] 15.9 s High 9.0 - 12.0 s [facility] Laboratory - Hematology and Cell countson 01-25-2025 Hemoglobin (Bld) [Mass/Vol] 7.6 g/dL Low 13.0 - 18.0 g/dL [facility] Hemoglobin (Bld) [Mass/Vol] 7.7 g/dL Low 13.0 - 18.0 g/dL [facility] Hemoglobin (Bld) [Mass/Vol] 8 g/dL Low 13.0 - 18.0 g/dL [facility] Hemoglobin (Bld) [Mass/Vol] 6.3 g/dL Critically low 13.0 - 18.0 g/dL [facility] Laboratory - Microbiology an d Antimicrobial susceptibilityon 01-25-2025 A. baumannii DNA EMMANUEL+probe Ql (Unsp spec) Not detected Not Detected [facility] - Microbiology an d Antimicrobial susceptibilityOrdered By: Petra Harris on 01-25-2025 C. auris ITS2 gene EMMANUEL+probe Ql (Unsp spec) Not detected Not Detected [facility] ealt Magnesium [Mass/Vol]on 01-25 [facility] No Panel Informationon 01-25 Interpretation and review of laboratory results Normal [facility] Blood Expiration Date S [facility] Crossmatch interpretation COMP [facility] Dispense Status Transfused [facility] Product Blood Type 9500 [facility] PRODUCT CODE [id number] [facility] Unit ABO O [facility] Unit Number [id number] [facility] Unit RH Negative [facility] Unit Volume 300 mL [facility] Interpretation and review of laboratory results Normal [facility] No Panel InformationOrdered By: Petra Harris on 01-25-2025 Interpretation and review of laboratory results Normal [facility] PT Coag (Bld) [Time]on 01-25 INR Coag (PPP) [Relative time] 1.7 {INR} High 0.9 - 1.1 [facility] Interpretation and review of laboratory results Abnormal [facility] INR Coag (PPP) [Relative time] 1.5 {INR} High 0.9 - 1.1 [facility] Interpretation and review of laboratory results Abnormal [facility] Phosphate [Moles/Vol]on Phosphate [Mass/Vol] 3.9 mg/dL 2.3 - 4 .7 mg/dL [facility] RF videography Hypopharynx a nd Esophagus Views for swallowing function W speech and W barium contrast Juan Carlos 01-25-2025 [facility] Radiology Study observation (narrative) [facility] RF videography Hypopharynx a nd Esophagus Views for swallowing function W speech and W barium contrast POOrdered By: Sulaiman Harp on 01-25-2025 [facility] Work Phone: aPTT Coag (Bld) [Time]on aPTT Coag (PPP) [Time] s Critically high 20.0 - [address] [facility] Interpretation and review of laboratory results Abnormal [facility] aPTT Coag (PPP) [Time] 83.1 s High 20.0 - 30.[address] [facility] Interpretation and review of laboratory results Abnormal [facility] aPTT Coag (PPP) [Time] 47.3 s High 20.0 - 30.[address] [facility] Interpretation and review of laboratory results Abnormal [facility] Basic metabolic 1998 panelon 01-24-2025 Anion gap [Moles/Vol] 12 mmol/L 3 - 13 mmol/L [facility] Calcium [Mass/Vol] 9.3 mg/dL 8.4 - 10. 2 mg/dL [facility] Chloride [Moles/Vol] 100 mmol/L 98 - 10 7 mmol/L [facility] CO2 [Moles/Vol] 26 mmol/L 22 - 29 mmol/L [facility] Creatinine [Mass/Vol] 1.47 mg/dL High 0.72 - 1.25 mg/dL [facility] GFR/1.73 sq M.predicted (S/P/Bld) [Vol rate/Area] 54.6 mL/min Low - PINF [facility] Glucose [Mass/Vol] 77 mg/dL 74 - 100 mg/dL [facility] Interpretation and review of laboratory results Abnormal [facility] Potassium [Moles/Vol] 3.5 mmol/L 3.5 - 5.1 mmol/L [facility] Sodium [Moles/Vol] 138 mmol/L 136 - 145 mmol/L [facility] Urea nitrogen [Mass/Vol] 9 mg/dL 9 - 23 mg/d L [facility] Anion gap [Moles/Vol] 20 mmol/L High 3 - 13 mmol/L [facility] Calcium [Mass/Vol] 10.2 mg/dL 8.4 - 10. 2 mg/dL [facility] Chloride [Moles/Vol] 98 mmol/L 98 - 10 7 mmol/L [facility] CO2 [Moles/Vol] 21 mmol/L Low 22 - 29 mmol/L [facility] Creatinine [Mass/Vol] 3.62 mg/dL High 0.72 - 1.25 mg/dL [facility] GFR/1.73 sq M.predicted (S/P/Bld) [Vol rate/Area] 18.5 mL/min Low - PINF [facility] Glucose [Mass/Vol] 74 mg/dL 74 - 100 mg/dL [facility] Potassium [Moles/Vol] 4 mmol/L 3.5 - 5.1 mmol/L [facility] Sodium [Moles/Vol] 139 mmol/L 136 - 145 mmol/L [facility] Urea nitrogen [Mass/Vol] 27 mg/dL High 9 - 23 mg/d L [facility] CBC panel Auto (Bld)Ordered By: Liseth Granado on 01-24-2025 Erythrocyte distribution width (RBC) [Ratio] 19.4 % High 11.5 - 15.0 % [facility] Hematocrit (Bld) [Volume fraction] 27 % Low 40.0 - 52.0 % [facility] Hemoglobin (Bld) [Mass/Vol] 8 g/dL Low 13.0 - 18.0 g/dL [facility] Interpretation and review of laboratory results Abnormal [facility] MCH (RBC) [Entitic mass] 27.9 pg 26. 0 - 34.[address] [facility] MCHC (RBC) [Mass/Vol] 29.6 % Low 30.5 - 36.0 % [facility] MCV (RBC) [Entitic vol] 94.1 fL 77.0 - 99.[address] [facility] Platelet mean volume (Bld) [Entitic vol] 9.2 fL 9.0 - 12.[address] [facility] Platelets (Bld) [#/Vol] 355 10*3/uL 140 - 440 10*3/uL [facility] RBC (Bld) [#/Vol] 2.87 10*6/uL Low 4.40 - 5.9 0 10*6/uL [facility] WBC (Bld) [#/Vol] 11.5 10*3/uL High 3.6 - 10.7 10*3/uL [facility] Hemoglobin (Bld) [Mass/Vol]o n 01-24-2025 Hematocrit (Bld) [Volume fraction] 23 % Low 40.0 - 52.0 % [facility] Interpretation and review of laboratory results Abnormal [facility] Laboratory - Chemistry and C hemistry - challengeon 01-24-2025 Lactate [Moles/Vol] 0.9 mmol/L 0.5 - 2. 2 mmol/L [facility] Laboratory - Chemistry and C hemistry - challengeOrdered By: Farhat Simons on 01-24-2025 Beta hydroxybutyrate [Mass/Vol] 10.5 mg/dL High NINF - 2.8 mg/dL [facility] Laboratory - Chemistry and C hemistry - challengeOrdered By: Anu Graham on 01-24-2025 Magnesium [Mass/Vol] 2.3 mg/dL 1.6 - 2 .6 mg/dL [facility] Laboratory - Coagulationon 0 01-24-2025 PT Coag (Bld) [Time] 15.1 s High 9.0 - 12.0 s [facility] PT Coag (Bld) [Time] 15.6 s High 9.0 - 12.0 s [facility] Laboratory - Hematology and Cell countson 01-24-2025 Hemoglobin (Bld) [Mass/Vol] 7.3 g/dL Low 13.0 - 18.0 g/dL [facility] Magnesium [Mass/Vol]Ordered By: Anu Graham on 01-24-2025 Interpretation and review of laboratory results Normal [facility] No Panel Informationon 01-24 Interpretation and review of laboratory results Abnormal [facility] Interpretation and review of laboratory results Normal [facility] Interpretation and review of laboratory results Abnormal [facility] Blood Expiration Date S [facility] Crossuttch interpretation COMP [facility] Dispense Status Released from [facility] Product Blood Type 9500 [facility] PRODUCT CODE [id number] [facility] Unit ABO O [facility] Unit Number [id number] [facility] Unit RH Negative [facility] Unit Volume 300 mL [facility] No Panel InformationOrdered By: Farhat Simons on 01-24-2025 Interpretation and review of laboratory results Abnormal [facility] No Panel InformationOrdered By: Anu Graham on 01-24-2025 [facility] PT Coag (Bld) [Time]on 01-24 INR Coag (PPP) [Relative time] 1.5 {INR} High 0.9 - 1.1 [facility] INR Coag (PPP) [Relative time] 1.5 {INR} High 0.9 - 1.1 [facility] Interpretation and review of laboratory results Abnormal [facility] Phosphate [Moles/Vol]on 12-28 Phosphate [Mass/Vol] 5.1 mg/dL High 2.3 - 4 .7 mg/dL [facility] XR Chest Single viewon 01-24 [facility] Radiology Study observation (narrative) [facility] aPTT Coag (Bld) [Time]on aPTT Coag (PPP) [Time] 33.7 s High 20.0 - 30.5 s [facility] aPTT Coag (Bld) [Time]Ordere d By: Callie Steele on 01-24-2025 aPTT Coag (PPP) [Time] 114.7 s High 20.0 - 30.[address] [facility] Interpretation and review of laboratory results Abnormal [facility] Basic metabolic 1998 panelon 01-23-2025 Anion gap [Moles/Vol] 13 mmol/L 3 - 13 mmol/L [facility] Calcium [Mass/Vol] 9.4 mg/dL 8.4 - 10. 2 mg/dL [facility] Chloride [Moles/Vol] 102 mmol/L 98 - 10 7 mmol/L [facility] CO2 [Moles/Vol] 25 mmol/L 22 - 29 mmol/L [facility] Creatinine [Mass/Vol] 2.34 mg/dL High 0.72 - 1.25 mg/dL [facility] GFR/1.73 sq M.predicted (S/P/Bld) [Vol rate/Area] 31.3 mL/min Low - PINF [facility] Glucose [Mass/Vol] 80 mg/dL 74 - 100 mg/dL [facility] Interpretation and review of laboratory results Abnormal [facility] Potassium [Moles/Vol] 3.4 mmol/L Low 3.5 - 5.1 mmol/L [facility] Sodium [Moles/Vol] 140 mmol/L 136 - 145 mmol/L [facility] Urea nitrogen [Mass/Vol] 22 mg/dL 9 - 23 mg/d L [facility] CBC W Auto Differential pane l (Bld)on 01-23-2025 Basophils (Bld) [#/Vol] 0.1 10*3/uL 0.0 - 0.2 10*3/uL [facility] Basophils/100 WBC (Bld) 1 % 0.0 - 2.0 % [facility] Eosinophils (Bld) [#/Vol] 0.7 10*3/uL High 0.0 - 0.5 10*3/uL [facility] Eosinophils/100 WBC (Bld) 6.8 % High 0.0 - 6.0 % [facility] Erythrocyte distribution width (RBC) [Ratio] 18.8 % High 11.5 - 15.0 % [facility] Hematocrit (Bld) [Volume fraction] 25.3 % Low 40.0 - 52.0 % [facility] Hemoglobin (Bld) [Mass/Vol] 7.9 g/dL Low 13.0 - 18.0 g/dL [facility] Immature granulocytes (Bld) [#/Vol] 0.1 10*3/uL High NINF - 0.1 10*3/uL [facility] Immature granulocytes/100 WBC (Bld) 1.1 % 0.0 - 2.0 % [facility] Interpretation and review of laboratory results Abnormal [facility] Lymphocytes (Bld) [#/Vol] 1.5 10*3/uL 1.0 - 4.3 10*3/uL [facility] Lymphocytes/100 WBC (Bld) 13.7 % Low 15.0 - 45.0 % [facility] MCH (RBC) [Entitic mass] 27.9 pg 26. 0 - 34.[address] [facility] MCHC (RBC) [Mass/Vol] 31.2 % 30.5 - 36.0 % [facility] MCV (RBC) [Entitic vol] 89.4 fL 77.0 - 99.[address] [facility] Monocytes (Bld) [#/Vol] 1.5 10*3/uL High 0.0 - 0.9 10*3/uL [facility] Monocytes/100 WBC (Bld) 13.7 % High 5.0 - 13.0 % [facility] Neutrophils (Bld) [#/Vol] 7 10*3/uL 1.8 - 7.5 10*3/uL [facility] Neutrophils/100 WBC (Bld) 63.7 % 38.0 - 82.0 % [facility] Nucleated RBC/100 WBC (Bld) [Ratio] 0 % [facility] Platelet mean volume (Bld) [Entitic vol] 9.4 fL 9.0 - 12.[address] [facility] Platelets (Bld) [#/Vol] 346 10*3/uL 140 - 440 10*3/uL [facility] RBC (Bld) [#/Vol] 2.83 10*6/uL Low 4.40 - 5.9 0 10*6/uL [facility] WBC (Bld) [#/Vol] 10.9 10*3/uL High 3.6 - 10.7 10*3/uL [facility] Basophils (Bld) [#/Vol] 0.1 10*3/uL 0.0 - 0.2 10*3/uL [facility] Basophils/100 WBC (Bld) 1.1 % 0.0 - 2.0 % [facility] Eosinophils (Bld) [#/Vol] 0.9 10*3/uL High 0.0 - 0.5 10*3/uL [facility] Eosinophils/100 WBC (Bld) 8 % High 0.0 - 6.0 % [facility] Erythrocyte distribution width (RBC) [Ratio] 18.5 % High 11.5 - 15.0 % [facility] Hematocrit (Bld) [Volume fraction] 23.4 % Low 40.0 - 52.0 % [facility] Hemoglobin (Bld) [Mass/Vol] 7.3 g/dL Low 13.0 - 18.0 g/dL [facility] Immature granulocytes (Bld) [#/Vol] 0.1 10*3/uL High NINF - 0.1 10*3/uL [facility] Immature granulocytes/100 WBC (Bld) 1.1 % 0.0 - 2.0 % [facility] Interpretation and review of laboratory results Abnormal [facility] Lymphocytes (Bld) [#/Vol] 1.4 10*3/uL 1.0 - 4.3 10*3/uL [facility] Lymphocytes/100 WBC (Bld) 12.2 % Low 15.0 - 45.0 % [facility] MCH (RBC) [Entitic mass] 27.7 pg 26. 0 - 34.[address] [facility] MCHC (RBC) [Mass/Vol] 31.2 % 30.5 - 36.0 % [facility] MCV (RBC) [Entitic vol] 88.6 fL 77.0 - 99.[address] [facility] Monocytes (Bld) [#/Vol] 1.4 10*3/uL High 0.0 - 0.9 10*3/uL [facility] Monocytes/100 WBC (Bld) 12.9 % 5.0 - 13.0 % [facility] Neutrophils (Bld) [#/Vol] 7.2 10*3/uL 1.8 - 7.5 10*3/uL [facility] Neutrophils/100 WBC (Bld) 64.7 % 38.0 - 82.0 % [facility] Nucleated RBC/100 WBC (Bld) [Ratio] 0 % [facility] Platelet mean volume (Bld) [Entitic vol] 9.1 fL 9.0 - 12.[address] [facility] Platelets (Bld) [#/Vol] 345 10*3/uL 140 - 440 10*3/uL [facility] RBC (Bld) [#/Vol] 2.64 10*6/uL Low 4.40 - 5.9 0 10*6/uL [facility] WBC (Bld) [#/Vol] 11.1 10*3/uL High 3.6 - 10.7 10*3/uL [facility] Hemoglobin (Bld) [Mass/Vol]o n 01-23-2025 Hematocrit (Bld) [Volume fraction] 25.1 % Low 40.0 - 52.0 % [facility] Interpretation and review of laboratory results Abnormal [facility] Laboratory - Chemistry and C hemistry - challengeon 01-23-2025 Glucose [Mass/Vol] 113 mg/dL High 70 - 100 mg/dL [facility] Glucose [Mass/Vol] 92 mg/dL 70 - 100 mg/dL [facility] Magnesium [Mass/Vol] 2.1 mg/dL 1.6 - 2 .6 mg/dL [facility] Laboratory - Coagulationon 0 01-23-2025 aPTT Coag (PPP) [Time] 30.6 s High 20.0 - 30.[address] [facility] INR Coag (PPP) [Relative time] 1.6 {INR} High 0.9 - 1.1 [facility] PT Coag (Bld) [Time] 16.1 s High 9.0 - 12.0 s [facility] PT Coag (Bld) [Time] 20 s High 9.0 - 12.0 s [facility] Laboratory - Hematology and Cell countson 01-23-2025 Hemoglobin (Bld) [Mass/Vol] 7.9 g/dL Low 13.0 - 18.0 g/dL [facility] Magnesium [Mass/Vol]on 01-23 Interpretation and review of laboratory results Normal [facility] No Panel Informationon 01-23 Interpretation and review of laboratory results Abnormal [facility] Interpretation and review of laboratory results Abnormal [facility] Interpretation and review of laboratory results Normal [facility] PT Coag (Bld) [Time]on 01-23 INR Coag (PPP) [Relative time] 2 {INR} High 0.9 - 1.1 [facility] Interpretation and review of laboratory results Abnormal [facility] Phosphate [Moles/Vol]Ordered By: Jenni Romano on 01-23-2025 Interpretation and review of laboratory results Normal [facility] Phosphate [Mass/Vol] 4.5 mg/dL 2.3 - 4 .7 mg/dL [facility] Basic metabolic 1998 panelOr dered By: Nathaly Dobson on 01-22-2025 Anion gap [Moles/Vol] 13 mmol/L 3 - 13 mmol/L [facility] Calcium [Mass/Vol] 9.8 mg/dL 8.4 - 10. 2 mg/dL [facility] Chloride [Moles/Vol] 94 mmol/L Low 98 - 10 7 mmol/L [facility] CO2 [Moles/Vol] 25 mmol/L 22 - 29 mmol/L [facility] Creatinine [Mass/Vol] 4.18 mg/dL High 0.72 - 1.25 mg/dL [facility] GFR/1.73 sq M.predicted (S/P/Bld) [Vol rate/Area] 15.6 mL/min Low - PINF [facility] Glucose [Mass/Vol] 70 mg/dL Low 74 - 100 mg/dL [facility] Interpretation and review of laboratory results Abnormal [facility] Potassium [Moles/Vol] 4.4 mmol/L 3.5 - 5.1 mmol/L [facility] Sodium [Moles/Vol] 132 mmol/L Low 136 - 145 mmol/L [facility] Urea nitrogen [Mass/Vol] 53 mg/dL High 9 - 23 mg/d L [facility] CBC W Auto Differential pane l (Bld)Ordered By: Tiffanie Chand on 01-22-2025 Basophils (Bld) [#/Vol] 0.1 10*3/uL 0.0 - 0.2 10*3/uL [facility] Basophils/100 WBC (Bld) 0.8 % 0.0 - 2.0 % [facility] Eosinophils (Bld) [#/Vol] 0.7 10*3/uL High 0.0 - 0.5 10*3/uL [facility] Eosinophils/100 WBC (Bld) 6.1 % High 0.0 - 6.0 % [facility] Erythrocyte distribution width (RBC) [Ratio] 18.4 % High 11.5 - 15.0 % [facility] Hematocrit (Bld) [Volume fraction] 23.9 % Low 40.0 - 52.0 % [facility] Hemoglobin (Bld) [Mass/Vol] 7.4 g/dL Low 13.0 - 18.0 g/dL [facility] Immature granulocytes (Bld) [#/Vol] 0.1 10*3/uL High NINF - 0.1 10*3/uL [facility] Immature granulocytes/100 WBC (Bld) 1.1 % 0.0 - 2.0 % [facility] Interpretation and review of laboratory results Abnormal [facility] Lymphocytes (Bld) [#/Vol] 1 10*3/uL 1.0 - 4.3 10*3/uL [facility] Lymphocytes/100 WBC (Bld) 9.7 % Low 15.0 - 45.0 % [facility] MCH (RBC) [Entitic mass] 27.5 pg 26. 0 - 34.[address] [facility] MCHC (RBC) [Mass/Vol] 31 % 30.5 - 36.0 % [facility] MCV (RBC) [Entitic vol] 88.8 fL 77.0 - 99.[address] [facility] Monocytes (Bld) [#/Vol] 1.5 10*3/uL High 0.0 - 0.9 10*3/uL [facility] Monocytes/100 WBC (Bld) 14.5 % High 5.0 - 13.0 % [facility] Neutrophils (Bld) [#/Vol] 7.2 10*3/uL 1.8 - 7.5 10*3/uL [facility] Neutrophils/100 WBC (Bld) 67.8 % 38.0 - 82.0 % [facility] Nucleated RBC/100 WBC (Bld) [Ratio] 0 % [facility] Platelet mean volume (Bld) [Entitic vol] 8.2 fL Low 9.0 - 12.7 fL [facility] Platelets (Bld) [#/Vol] 292 10*3/uL 140 - 440 10*3/uL [facility] RBC (Bld) [#/Vol] 2.69 10*6/uL Low 4.40 - 5.9 0 10*6/uL [facility] WBC (Bld) [#/Vol] 10.6 10*3/uL 3.6 - 10.7 10*3/uL [facility] CBC W Auto Differential pane l (Bld)on 01-22-2025 Basophils (Bld) [#/Vol] 0.1 10*3/uL 0.0 - 0.2 10*3/uL [facility] Basophils/100 WBC (Bld) 1.1 % 0.0 - 2.0 % [facility] Eosinophils (Bld) [#/Vol] 0.8 10*3/uL High 0.0 - 0.5 10*3/uL [facility] Eosinophils/100 WBC (Bld) 7.9 % High 0.0 - 6.0 % [facility] Erythrocyte distribution width (RBC) [Ratio] 18.6 % High 11.5 - 15.0 % [facility] Hematocrit (Bld) [Volume fraction] 25.1 % Low 40.0 - 52.0 % [facility] Hemoglobin (Bld) [Mass/Vol] 8 g/dL Low 13.0 - 18.0 g/dL [facility] Immature granulocytes (Bld) [#/Vol] 0.1 10*3/uL High NINF - 0.1 10*3/uL [facility] Immature granulocytes/100 WBC (Bld) 0.8 % 0.0 - 2.0 % [facility] Interpretation and review of laboratory results Abnormal [facility] Lymphocytes (Bld) [#/Vol] 1.5 10*3/uL 1.0 - 4.3 10*3/uL [facility] Lymphocytes/100 WBC (Bld) 14.1 % Low 15.0 - 45.0 % [facility] MCH (RBC) [Entitic mass] 27.7 pg 26. 0 - 34.0 pg [facility] MCHC (RBC) [Mass/Vol] 31.9 % 30.5 - 36.0 % [facility] MCV (RBC) [Entitic vol] 86.9 fL 77.0 - 99.0 fL [facility] Monocytes (Bld) [#/Vol] 1.5 10*3/uL High 0.0 - 0.9 10*3/uL [facility] Monocytes/100 WBC (Bld) 14 % High 5.0 - 13.0 % [facility] Neutrophils (Bld) [#/Vol] 6.6 10*3/uL 1.8 - 7.5 10*3/uL [facility] Neutrophils/100 WBC (Bld) 62.1 % 38.0 - 82.0 % [facility] Nucleated RBC/100 WBC (Bld) [Ratio] 0 % [facility] Platelet mean volume (Bld) [Entitic vol] 8.8 fL Low 9.0 - 12.7 fL [facility] Platelets (Bld) [#/Vol] 330 10*3/uL 140 - 440 10*3/uL [facility] RBC (Bld) [#/Vol] 2.89 10*6/uL Low 4.40 - 5.9 0 10*6/uL [facility] WBC (Bld) [#/Vol] 10.6 10*3/uL 3.6 - 10.7 10*3/uL [facility] Coagulation index TEG Qn [...] activated Rotational TEG (Bld) [Time] 82 High [facility] Clot formation.extrinsic coagulation system activated Rotational TEG (Bld) [Time] 73 mm High 50 - 70 mm [facility] Clot formation.extrinsic coagulation system activated Rotational TEG (Bld) [Time] 76 mm High 52 - 70 mm [facility] Clot formation.extrinsic coagulation system activated.fibrinolysis suppressed Rotational TEG (Bld) [Time] 44 s Low 48 - 127 s [facility] Clot formation.extrinsic coagulation system activated.fibrinolysis suppressed Rotational TEG (Bld) [Time] 33 mm [facility] Clot formation.extrinsic coagulation system activated.fibrinolysis suppressed Rotational TEG (Bld) [Time] 35 mm [facility] Clot formation.extrinsic coagulation system activated.fibrinolysis suppressed Rotational TEG (Bld) [Time] 36 mm High 7 - 24 mm [facility] Clotting time.extrinsic coagulation system activated.fibrinolysis suppressed Rotational TEG (Bld) 232 s High 43 - [address] [facility] Interpretation and review of laboratory results Abnormal [facility] Maximum clot firmness.extrinsic coagulation system activated.fibrinolysis suppressed Rotational TEG (Bld) [Length] 75 mm High 52 - 70 mm [facility] Hemoglobin (Bld) [Mass/Vol]o n 01-22-2025 Hematocrit (Bld) [Volume fraction] 24.5 % Low 40.0 - 52.0 % [facility] Interpretation and review of laboratory results Abnormal [facility] Hepatic function 2000 panelo n 01-22-2025 Albumin [Mass/Vol] 2.2 g/dL Low 3.5 - 5.0 g/dL [facility] ALP [Catalytic activity/Vol] 274 U/L High 40 - 150 U/L [facility] ALT [Catalytic activity/Vol] 44 U/L High NINF - 40 U/L [facility] AST [Catalytic activity/Vol] 51 U/L High NINF - 34 U/L [facility] Bilirubin [Mass/Vol] 0.9 mg/dL NINF - 1.2 mg/dL [facility] Bilirubin.conjugated [Mass/Vol] 0.7 mg/dL High NINF - 0.5 mg/dL [facility] Protein [Mass/Vol] 7.6 g/dL 6.4 - 8.3 g/dL [facility] Laboratory - Chemistry and C hemistry - challengeon 01-22-2025 Glucose [Mass/Vol] 101 mg/dL High 70 - 100 mg/dL [facility] Glucose [Mass/Vol] 77 mg/dL 70 - 100 mg/dL [facility] Glucose [Mass/Vol] 81 mg/dL 70 - 100 mg/dL [facility] Magnesium [Mass/Vol] 2.6 mg/dL 1.6 - 2 .6 mg/dL [facility] Glucose [Mass/Vol] 82 mg/dL 70 - 100 mg/dL [facility] Laboratory - Coagulationon 0 01-22-2025 aPTT Coag (PPP) [Time] 42.7 s High 20.0 - 30.[address] [facility] INR Coag (PPP) [Relative time] 3.1 {INR} High 0.9 - 1.1 [facility] PT Coag (Bld) [Time] 31 s High 9.0 - 12.0 s [facility] Fibrin D-dimer FEU (PPP) [Mass/Vol] 14.21 mg/L High NINF - 0.50 mg/L [facility] Fibrinogen Coag (PPP) [Mass/Vol] 436 mg/dL High 200 - 400 mg/dL [facility] Laboratory - CoagulationOrde red By: Maggy Lancaster on 01-22-2025 aPTT Coag (PPP) [Time] 48.1 s High 20.0 - 30.[address] [facility] INR Coag (PPP) [Relative time] 5.5 {INR} Critically high 0.9 - 1.1 [facility] PT Coag (Bld) [Time] 52.6 s High 9.0 - 12.0 s [facility] Laboratory - CoagulationOrde red By: Michelle Olmstead on 01-22-2025 PT Coag (Bld) [Time] 75.4 s High 9.0 - 12.0 s [facility] Laboratory - Hematology and Cell countson 01-22-2025 Hemoglobin (Bld) [Mass/Vol] 7.7 g/dL Low 13.0 - 18.0 g/dL [facility] Magnesium [Mass/Vol]on 01-22 Interpretation and review of laboratory results Normal [facility] No Panel Informationon 01-22 Interpretation and review of laboratory results Abnormal [facility] Interpretation and review of laboratory results Abnormal [facility] Blood Expiration Date [id number] [facility] Dispense Status Transfused [facility] Product Blood Type 6200 [facility] PRODUCT CODE [id number] [facility] Unit ABO A [facility] Unit Number [id number] [facility] alth Unit RH Positive [facility] Unit Volume 209 ml [facility] Interpretation and review of laboratory results Normal [facility] Interpretation and review of laboratory results Normal [facility] Interpretation and review of laboratory results Abnormal [facility] Interpretation and review of laboratory results Abnormal [facility] Interpretation and review of laboratory results Normal [facility] No Panel InformationOrdered By: Maggy Lancaster on 01-22-2025 Interpretation and review of laboratory results Abnormal [facility] PT Coag (Bld) [Time]Ordered By: Michelle Olmstead on 01-22-2025 INR Coag (PPP) [Relative time] 8.1 {INR} Critically high 0.9 - 1.1 [facility] Interpretation and review of laboratory results Abnormal [facility] Phosphate [Moles/Vol]on 12-27 Phosphate [Mass/Vol] 6.8 mg/dL High 2.3 - 4 .7 mg/dL [facility] aPTT Coag (Bld) [Time]on aPTT Coag (PPP) [Time] 46 s High 20.0 - 30.[address] [facility] Basic metabolic 1998 panelOr dered By: Jarred José on 01-21-2025 Anion gap [Moles/Vol] 15 mmol/L High 3 - 13 mmol/L [facility] Calcium [Mass/Vol] 9.9 mg/dL 8.4 - 10. 2 mg/dL [facility] Chloride [Moles/Vol] 96 mmol/L Low 98 - 10 7 mmol/L [facility] CO2 [Moles/Vol] 24 mmol/L 22 - 29 mmol/L [facility] Creatinine [Mass/Vol] 2.99 mg/dL High 0.72 - 1.25 mg/dL [facility] GFR/1.73 sq M.predicted (S/P/Bld) [Vol rate/Area] 23.3 mL/min Low - PINF [facility] Glucose [Mass/Vol] 60 mg/dL Low 74 - 100 mg/dL [facility] Interpretation and review of laboratory results Abnormal [facility] Potassium [Moles/Vol] 4.3 mmol/L 3.5 - 5.1 mmol/L [facility] Sodium [Moles/Vol] 135 mmol/L Low 136 - 145 mmol/L [facility] Urea nitrogen [Mass/Vol] 46 mg/dL High 9 - 23 mg/d L [facility] CBC W Auto Differential pane l (Bld)on 01-21-2025 Basophils (Bld) [#/Vol] 0.1 10*3/uL 0.0 - 0.2 10*3/uL [facility] Basophils/100 WBC (Bld) 1 % 0.0 - 2.0 % [facility] Eosinophils (Bld) [#/Vol] 0.4 10*3/uL 0.0 - 0.5 10*3/uL [facility] Eosinophils/100 WBC (Bld) 3.8 % 0.0 - 6.0 % [facility] Erythrocyte distribution width (RBC) [Ratio] 18.6 % High 11.5 - 15.0 % [facility] Hematocrit (Bld) [Volume fraction] 27.3 % Low 40.0 - 52.0 % [facility] Hemoglobin (Bld) [Mass/Vol] 8.3 g/dL Low 13.0 - 18.0 g/dL [facility] Immature granulocytes (Bld) [#/Vol] 0.1 10*3/uL High NINF - 0.1 10*3/uL [facility] Immature granulocytes/100 WBC (Bld) 1.2 % 0.0 - 2.0 % [facility] Interpretation and review of laboratory results Abnormal [facility] Lymphocytes (Bld) [#/Vol] 1.7 10*3/uL 1.0 - 4.3 10*3/uL [facility] Lymphocytes/100 WBC (Bld) 16.5 % 15.0 - 45.0 % [facility] MCH (RBC) [Entitic mass] 27 pg 26. 0 - 34.[address] [facility] MCHC (RBC) [Mass/Vol] 30.4 % Low 30.5 - 36.0 % [facility] MCV (RBC) [Entitic vol] 88.9 fL 77.0 - 99.[address] [facility] Monocytes (Bld) [#/Vol] 1.4 10*3/uL High 0.0 - 0.9 10*3/uL [facility] Monocytes/100 WBC (Bld) 14.3 % High 5.0 - 13.0 % [facility] Neutrophils (Bld) [#/Vol] 6.4 10*3/uL 1.8 - 7.5 10*3/uL [facility] Neutrophils/100 WBC (Bld) 63.2 % 38.0 - 82.0 % [facility] Nucleated RBC/100 WBC (Bld) [Ratio] 0 % [facility] Platelet mean volume (Bld) [Entitic vol] 8.7 fL Low 9.0 - 12.[address] [facility] Platelets (Bld) [#/Vol] 365 10*3/uL 140 - 440 10*3/uL [facility] RBC (Bld) [#/Vol] 3.07 10*6/uL Low 4.40 - 5.9 0 10*6/uL [facility] WBC (Bld) [#/Vol] 10.1 10*3/uL 3.6 - 10.7 10*3/uL [facility] CBC panel Auto (Bld)Ordered By: Piedad Alvarado on 01-21-2025 Erythrocyte distribution width (RBC) [Ratio] 18.6 % High 11.5 - 15.0 % [facility] Hematocrit (Bld) [Volume fraction] 25.3 % Low 40.0 - 52.0 % [facility] Hemoglobin (Bld) [Mass/Vol] 8 g/dL Low 13.0 - 18.0 g/dL [facility] Interpretation and review of laboratory results Abnormal [facility] MCH (RBC) [Entitic mass] 27.7 pg 26. 0 - 34.[address] [facility] MCHC (RBC) [Mass/Vol] 31.6 % 30.5 - 36.0 % [facility] MCV (RBC) [Entitic vol] 87.5 fL 77.0 - 99.[address] [facility] Platelet mean volume (Bld) [Entitic vol] 9.1 fL 9.0 - 12.[address] [facility] Platelets (Bld) [#/Vol] 353 10*3/uL 140 - 440 10*3/uL [facility] RBC (Bld) [#/Vol] 2.89 10*6/uL Low 4.40 - 5.9 0 10*6/uL [facility] WBC (Bld) [#/Vol] 9.2 10*3/uL 3.6 - 10.7 10*3/uL [facility] Hemoglobin (Bld) [Mass/Vol]o n 01-21-2025 Hematocrit (Bld) [Volume fraction] 22.4 % Low 40.0 - 52.0 % [facility] Interpretation and review of laboratory results Abnormal [facility] Laboratory - Chemistry and C hemistry - challengeon 01-21-2025 Glucose [Mass/Vol] 86 mg/dL 70 - 100 mg/dL [facility] Glucose [Mass/Vol] 92 mg/dL 70 - 100 mg/dL [facility] Glucose [Mass/Vol] 92 mg/dL 70 - 100 mg/dL [facility] Glucose [Mass/Vol] 107 mg/dL High 70 - 100 mg/dL [facility] Glucose [Mass/Vol] 129 mg/dL High 70 - 100 mg/dL [facility] Glucose [Mass/Vol] 67 mg/dL Low 70 - 100 mg/dL [facility] Magnesium [Mass/Vol] 2.5 mg/dL 1.6 - 2 .6 mg/dL [facility] Glucose [Mass/Vol] 74 mg/dL 70 - 100 mg/dL [facility] Laboratory - CoagulationOrde red By: Treva Mcfarland on 01-21-2025 PT Coag (Bld) [Time] 73.5 s High 9.0 - 12.0 s [facility] Laboratory - Hematology and Cell countson 01-21-2025 Hemoglobin (Bld) [Mass/Vol] 7.1 g/dL Low 13.0 - 18.0 g/dL [facility] Magnesium [Mass/Vol]on 01-21 Interpretation and review of laboratory results Normal [facility] No Panel Informationon 01-21 Interpretation and review of laboratory results Normal [facility] Interpretation and review of laboratory results Normal [facility] Interpretation and review of laboratory results Normal [facility] Interpretation and review of laboratory results Abnormal [facility] Interpretation and review of laboratory results Abnormal [facility] Interpretation and review of laboratory results Abnormal [facility] Interpretation and review of laboratory results Normal [facility] PT Coag (Bld) [Time]Ordered By: Treva Mcfarland on 01-21-2025 INR Coag (PPP) [Relative time] 7.9 {INR} Critically high 0.9 - 1.1 [facility] Interpretation and review of laboratory results Abnormal [facility] Phosphate [Moles/Vol]on 12-27 Interpretation and review of laboratory results Abnormal [facility] Phosphate [Mass/Vol] 5.3 mg/dL High 2.3 - 4 .7 mg/dL [facility] Basic metabolic 1998 panelon 01-20-2025 Anion gap [Moles/Vol] 15 mmol/L High 3 - 13 mmol/L [facility] Calcium [Mass/Vol] 9.2 mg/dL 8.4 - 10. 2 mg/dL [facility] Chloride [Moles/Vol] 98 mmol/L 98 - 10 7 mmol/L [facility] CO2 [Moles/Vol] 22 mmol/L 22 - 29 mmol/L [facility] Creatinine [Mass/Vol] 4.31 mg/dL High 0.72 - 1.25 mg/dL [facility] GFR/1.73 sq M.predicted (S/P/Bld) [Vol rate/Area] 15 mL/min Low - PINF [facility] Glucose [Mass/Vol] 68 mg/dL Low 74 - 100 mg/dL [facility] Interpretation and review of laboratory results Abnormal [facility] Potassium [Moles/Vol] 4.8 mmol/L 3.5 - 5.1 mmol/L [facility] Sodium [Moles/Vol] 135 mmol/L Low 136 - 145 mmol/L [facility] Urea nitrogen [Mass/Vol] 91 mg/dL High 9 - 23 mg/d L [facility] Blood type and Crossmatch pa freida (Bld)on 01-20-2025 ABO group Nom (Bld) O [facility] Blood group antibody screen GEL Ql Negative [facility] D Ag Ql (RBC) Negative [facility] CBC W Auto Differential pane l (Bld)Ordered By: Haley Vitale on 01-20-2025 Basophils (Bld) [#/Vol] 0.1 10*3/uL 0.0 - 0.2 10*3/uL [facility] Basophils/100 WBC (Bld) 1.1 % 0.0 - 2.0 % [facility] Eosinophils (Bld) [#/Vol] 0.5 10*3/uL 0.0 - 0.5 10*3/uL [facility] Eosinophils/100 WBC (Bld) 4.5 % 0.0 - 6.0 % [facility] Erythrocyte distribution width (RBC) [Ratio] 18.3 % High 11.5 - 15.0 % [facility] Hematocrit (Bld) [Volume fraction] 21.3 % Low 40.0 - 52.0 % [facility] Hemoglobin (Bld) [Mass/Vol] 6.6 g/dL Critically low 13.0 - 18.0 g/dL [facility] Immature granulocytes (Bld) [#/Vol] 0.1 10*3/uL High NINF - 0.1 10*3/uL [facility] Immature granulocytes/100 WBC (Bld) 1 % 0.0 - 2.0 % [facility] Interpretation and review of laboratory results Abnormal [facility] Lymphocytes (Bld) [#/Vol] 1.2 10*3/uL 1.0 - 4.3 10*3/uL [facility] Lymphocytes/100 WBC (Bld) 11.6 % Low 15.0 - 45.0 % [facility] MCH (RBC) [Entitic mass] 27.4 pg 26. 0 - 34.0 pg [facility] MCHC (RBC) [Mass/Vol] 31 % 30.5 - 36.0 % [facility] MCV (RBC) [Entitic vol] 88.4 fL 77.0 - 99.0 fL [facility] Monocytes (Bld) [#/Vol] 1.1 10*3/uL High 0.0 - 0.9 10*3/uL [facility] Monocytes/100 WBC (Bld) 10.1 % 5.0 - 13.0 % [facility] Neutrophils (Bld) [#/Vol] 7.5 10*3/uL 1.8 - 7.5 10*3/uL [facility] Neutrophils/100 WBC (Bld) 71.7 % 38.0 - 82.0 % [facility] Nucleated RBC/100 WBC (Bld) [Ratio] 0 % [facility] Platelet mean volume (Bld) [Entitic vol] 9 fL 9.0 - 12.[address] [facility] Platelets (Bld) [#/Vol] 279 10*3/uL 140 - 440 10*3/uL [facility] RBC (Bld) [#/Vol] 2.41 10*6/uL Low 4.40 - 5.9 0 10*6/uL [facility] WBC (Bld) [#/Vol] 10.5 10*3/uL 3.6 - 10.7 10*3/uL [facility] CT Abdomen and Pelvis W cont rast Dimitrios 01-20-2025 [facility] Radiology Study observation (narrative) [facility] CT Abdomen and Pelvis W cont rast IVOrdered By: Karly Parker on 01-20-2025 [facility] Work Phone: Hemoglobin (Bld) [Mass/Vol]o n 01-20-2025 Hematocrit (Bld) [Volume fraction] 25.8 % Low 40.0 - 52.0 % [facility] Interpretation and review of laboratory results Abnormal [facility] Hematocrit (Bld) [Volume fraction] 25.7 % Low 40.0 - 52.0 % [facility] Interpretation and review of laboratory results Abnormal [facility] Hematocrit (Bld) [Volume fraction] 25.8 % Low 40.0 - 52.0 % [facility] Interpretation and review of laboratory results Abnormal [facility] Laboratory - Chemistry and C hemistry - challengeon 01-20-2025 Magnesium [Mass/Vol] 2.8 mg/dL High 1.6 - 2 .6 mg/dL [facility] Laboratory - Hematology and Cell countson 01-20-2025 Hemoglobin (Bld) [Mass/Vol] 8.3 g/dL Low 13.0 - 18.0 g/dL [facility] Hemoglobin (Bld) [Mass/Vol] 8.2 g/dL Low 13.0 - 18.0 g/dL [facility] Hemoglobin (Bld) [Mass/Vol] 8.2 g/dL Low 13.0 - 18.0 g/dL [facility] Magnesium [Mass/Vol]on 01-20 [facility] No Panel Informationon 01-20 Interpretation and review of laboratory results Abnormal [facility] Phosphate [Moles/Vol]on 12-27 Phosphate [Mass/Vol] 6.1 mg/dL High 2.3 - 4 .7 mg/dL [facility] No Panel Informationon 01-[address] [facility] CO Interval [address] [facility] QRS Vand[address] [facility] QRSD [facility] [address] [facility]val [address] [facility] QTC Interval [address] [facility] T Wave Vandiver [address] [facility] CV EPIPHANY [facility] 4h Troponin HS (Serial 3rd Troponin) 94 ng/L High NINF - 35 ng/L [facility] Interpretation and review of laboratory results Abnormal [facility] 2h Troponin HS (Serial 2nd Troponin) 106 ng/L High NINF - 35 ng/L [facility] Interpretation and review of laboratory results Abnormal [facility] Vital signson 01-19-2025 Heart rate 93 /min bpm [facility] Airwayon 10-12-2024 Rudolph German CRNA 10/12/2024 7:56 AM Airway Date/Time: 10/12/2024 7:38 AM Urgency: scheduled Airway not difficult General Information and Staff Patient location during procedure: Procedural Anesthesiologist: Vincent Wilson MD Resident/BOOM SUPERVISOR: Rudolph German CRNA Performed: anesthesiologist Indications and [...] 21 Number of attempts at approach: 1 [facility] Arterial Lineon 10-12-2024 Rudolph German CRNA [...] procedure well with no complications. Staffing Performed: BOOM SUPERVISOR Resident/BOOM SUPERVISOR: Rudolph German CRNA [facility] Central Venous Lineon 2024 Rudolph German [...] during the procedure: no complications. Staffing Performed: BOOM SUPERVISOR Resident/BOOM SUPERVISOR: Rudolph German CRNA [facility] No Panel Informationon 10-[address] [facility] [address] Head WO contraston 2024 No acute intracranial hemorrhage or large territorial infarct. Nonspecific small air locules within the scalp adjacent to the right temporal bone and within the right agriculture research director space. Pneumatized secretions within the maxillary sinuses may correspond with acute sinusitis in the appropriate clinical setting. Report Dictated on Electronically Signed By: Yvonne Abraham DO Electronically Signed Date/Time: 10/03/2024 2:14 PM EST [facility] Patient Name: JUN SNYDER : 1965 [...] right temporal bone and within the right agriculture research director space. [facility] Yvonne Abraham DO - 10/03/2024 Patient Name: [...] right temporal bone and within the right agriculture research director space. IMPRESSION: No acute intracranial hemorrhage or large territorial infarct. Nonspecific small air locules within the scalp adjacent to the right temporal bone and within the right agriculture research director space. Pneumatized secretions within the maxillary sinuses may correspond with acute sinusitis in the appropriate clinical setting. Report Dictated on Electronically Signed By: Yvonne Abraham DO Electronically Signed Date/Time: 10/03/2024 2:[address] [facility] Radiology Study observation (narrative) [facility] CT Head WO contrastOrdered B y: Yvonne Abraham on 10-03-2024 [employer] Work Phone: XR Chest Single viewon 10-03 No focal consolidation or pulmonary edema. Report Dictated on Electronically Signed By: Bob Ken MD Electronically Signed Date/Time: 10/03/2024 12:22 PM [facility] [employer] Patient Name: JUN SNYDER : 1965 [...] change of the thoracic spine is noted. [facility] [employer] Bob Ken MD - 10/03/2024 Patient [...] Electronically Signed Date/Time: 10/03/2024 12:22 PM EST [employer] Radiology Study observation (narrative) [facility] XR Chest Single viewOrdered By: Bob Ken on 10-03-2024 [employer] Work Phone: ECG 12 leadon 08-28-2024 Sinus Rhythm -Incomplete right bundle branch block. -Left atrial enlargement. Voltage criteria for LVH (S(V1)+R(V6) exceeds 3.50 mV). -ST depression -Seen with left ventricular hypertrophy (strain) -consider ischemia. [employer] CNPNon 04-12-2024 CNPN Telephone (TXCTGL) JUN SNYDER ([id number]) 1965 Date Time Provider Department 04/12/24 KIDNEY TXP [...] Status:Closed by LANIE LUIS on 04/12/[address] [facility] ECG 12 leadon 11-12-2023 Sinus Rhythm -Left atrial enlargement. IRBBB LVH with repolarization ABNORMAL [facility] ECG 12 leadOrdered By: Michaela Coombs on 11-12-2023 [facility] Work Phone: Basic metabolic 1998 panelon 08-17-2023 Anion gap [Moles/Vol] 15 mmol/L High 3 - 13 mmol/L [facility] Calcium [Mass/Vol] 8.7 mg/dL 8.4 - 10. 4 mg/dL [facility] Chloride [Moles/Vol] 94 mmol/L Low 98 - 10 7 mmol/L [facility] CO2 [Moles/Vol] 26 mmol/L 22 - 30 mmol/L [facility] Creatinine [Mass/Vol] 6.78 mg/dL High 0.66 - 1.25 mg/dL [facility] GFR/1.73 sq M.predicted MDRD (S/P/Bld) [Vol rate/Area] 8.8 mL/min/{1.73_m2} Low [facility] PINF [facility] Comment on above: Calculation based on the Chronic Kidney Disease Epidemiology Collaboration (CKD-EPI) equation refit without adjustment for race Glucose [Mass/Vol] 102 mg/dL High 70 - 100 mg/dL [facility] Interpretation and review of laboratory results Abnormal [facility] Potassium [Moles/Vol] 5.0 mmol/L 3.5 - 5.1 mmol/L [facility] Sodium [Moles/Vol] 134 mmol/L Low 135 - 145 mmol/L [facility] Urea nitrogen [Mass/Vol] 46 mg/dL High 9 - 20 mg/d L [facility] Laboratory - Chemistry and C hemistry - challengeon 08-17-2023 Magnesium [Mass/Vol] 2.1 mg/dL 1.6 - 2 .3 mg/dL [employer] TSH Qn 0.981 m[IU]/L [facility] [employer] h TSH Qn 1.190 m[IU]/L [facility] h Troponin I.cardiac [Mass/Vol] 0.094 ng/mL High NINF - 0.034 ng/mL [facility] [employer] Magnesium [Mass/Vol]on 08-17 Interpretation and review of laboratory results Normal [facility] [employer] No Panel InformationOrdered By: Ruy Milton on 08-17-2023 P Vandiver degrees [employer] Work Phone: CO Interval ms [employer] Work Phone: QRS Vandiver 61 degrees [employer] Work Phone: QRSD Interval 114 ms [employer] Work Phone: QT Interval 364 ms [employer] Work Phone: QTC Interval 491 ms [employer] Work Phone: T Wave Vandiver -20 degrees [employer] Work Phone: [employer] Work Phone: No Panel Informationon 08-17 ATRIAL [...] On 08-17-2023 6:57:31 EST by Ruy Milton [facility] [employer] TSH Qnon 08-17-2023 Interpretation and review of laboratory results Normal [facility] Interpretation and review of laboratory results Normal [facility] Troponin I.cardiac [Mass/Vol ]on 08-17-2023 Interpretation and review of laboratory results Abnormal [facility] Patients with high levels of Biotin oral intake (ie >5 mg/day) may have falsely decreased Troponin levels. [facility] US Heart TransthoracicOrdere d By: Jr Shah on 08-17-2023 Ao Root Index 1.58 cm/m2 [facility] Work [phone] Aortic Root 3.3 cm [facility] Work Phone: [phone] Ascending Aorta 3.3 cm [facility] Work Phone: [phone] Ascending Aorta Index 1.58 cm/m2 [facility] Work Phone: [phone] AV Area by Peak Velocity 1.[address] [facility] Work Phone: [phone] AV Area by VTI 1.1 cm2 [facility] Work Phone: [phone] AV AT 97.05 ms [facility] Work Phone: [phone] AV Mean Gradient 34 mmHg [facility] Work Phone: [phone] AV Mean Velocity 2.7 m/s [facility] Work Phone: [phone] AV Peak Gradient 59 mmHg [facility] Work Phone: [phone] AV Peak Velocity 3.8 m/s [facility] Work Phone: [phone] AV Velocity Ratio 0.26 [facility] Work Phone: [phone] AV VTI 84.0 cm [facility] Work Phone: [phone] MALU/BSA Peak Velocity 0.5 cm2/m2 [facility] Work Phone: MALU/BSA VTI 0.5 cm2/m2 [facility] Work Phone: E/E' Lateral 11.44 [facility] Work Phone: E/E' Ratio (Averaged) 13.08 [facility] Work Phone: E/E' Septal 14.71 [facility] [employer] Work Phone: EF BP 62 % 55 - 100 % [facility] [employer] Work Phone: Est. RA Pressure 0 mmHg [facility] Work Phone: [phone] Fractional Shortening 2D 30 % 28 - 44 % [facility] [employer] Work Phone: [phone] Interpretation and review of laboratory results Abnormal [facility] [employer] Work Phone: IVC Diameter 1.1 cm [facility] [employer] Work Phone: [phone] IVSd 1.1 cm Abnormal 0.6 - 1.0 cm [facility] [employer] Work Phone: [phone] LA Diameter 4.0 cm [facility] [employer] Work Phone: [phone] LA Size Index 1.91 cm/m2 [facility] Work Phone: [phone] LA Volume 2C 66 mL Abnormal 18 - 58 mL [facility] [employer] Work Phone: [phone] LA Volume 4C 71 mL Abnormal 18 - 58 mL [facility] [employer] Work Phone: [phone] LA Volume A/L 75 mL [facility] Work Phone: LA Volume BP 69 mL Abnormal 18 - 58 mL [facility] [employer] Work Phone: LA Volume Index 2C 32 mL/m2 16 - 34 mL/m2 [facility] [employer] Work Phone: LA Volume Index 4C 34 mL/m2 16 - 34 mL/m2 [facility] [employer] Work Phone: [phone] LA Volume Index A/L 36 mL/m2 16 - 34 mL/m2 [facility] [facility] [facility] [employer] Work Phone: LA Volume Index BP 33 ml/m2 16 - 34 ml/m2 [facility] [employer] Work Phone: LA/AO Root Ratio 1.21 [facility] Work Phone: LV E' Lateral Velocity 9 cm/s [facility] Work Phone: LV E' Septal Velocity 7 cm/s [facility] [employer] Work Phone: LV EDV A2C 104 mL [facility] [employer] Work Phone: LV EDV A4C 89 mL [facility] [employer] Work Phone: LV EDV BP 97 mL 67 - 155 mL [facility] Work Phone: LV EDV Index A2C 50 mL/m2 [facility] Work Phone: LV EDV Index A4C 43 mL/m2 [facility] Work Phone: LV EDV Index BP 46 mL/m2 [facility] Work Phone: LV Ejection Fraction A2C 61 % [facility] Work Phone: LV Ejection Fraction A4C 64 % [facility] Work Phone: LV ESV A2C 41 mL [facility] Work Phone: LV ESV A4C 32 mL [facility] Work Phone: LV ESV BP 37 mL 22 - 58 mL [facility] Work Phone: LV ESV Index A2C 20 mL/m2 [facility] Work Phone: LV ESV Index A4C 15 mL/m2 [facility] Work Phone: LV ESV Index BP 18 mL/m2 [facility] Work Phone: LV Mass 2D 173.6 g 88 - 224 g [facility] Work Phone: LV Mass 2D Index 83.1 g/m2 49 - 115 g/m2 [facility] Work Phone: LV RWT Ratio 0.56 [facility] Work Phone: LVIDd 4.3 cm 4.2 - 5.9 cm [facility] Work Phone: LVIDd Index 2.06 cm/m2 [facility] Work Phone: LVIDs 3.0 cm [facility] Work Phone: LVIDs Index 1.44 cm/m2 [facility] Work Phone: LVOT Area 4.2 cm2 [facility] Work Phone: LVOT Cardiac Output 7.6 liter/minute [facility] Work Phone: LVOT Diameter 2.3 cm [facility] Work Phone: LVOT Mean Gradient 2 mmHg [facility] Work Phone: [phone] LVOT Peak Gradient 4 mmHg [facility] Work Phone: LVOT Peak Velocity 1.0 m/s [facility] Work Phone: [phone] LVOT Stroke Volume Index 46.5 mL/m2 [facility] Work Phone: [phone] LVOT SV 97.2 ml [facility] Work Phone: LVOT VTI 23.4 cm [facility] Work Phone: [phone] LVOT:AV VTI Index 0.28 [facility] Work Phone: [phone] LVPWd 1.2 cm Abnormal 0.6 - 1.0 cm [facility] Work Phone: [phone] MV A Velocity 0.79 m/s [facility] Work Phone: [phone] MV Area by PHT 1.9 cm2 [facility] Work Phone: [phone] MV E Velocity 1.03 m/s [facility] Work Phone: [phone] MV E Wave Deceleration Time 278.6 ms [facility] Work Phone: [phone] MV E/A 1.30 [facility] Work Phone: [phone] MV Mean Gradient 3 mmHg [facility] Work Phone: [phone] MV Peak Gradient 6 mmHg [facility] Work Phone: MV PHT 113.0 ms [facility] Work Phone: RA Area 4C 79.9 mL [facility] Work Phone: [phone] RA Area 4C 77.7 mL [facility] Work Phone: RV Basal Dimension 4.6 cm [facility] Work Phone: RV Mid Dimension 3.3 cm [facility] Work Phone: [phone] RVSP 30 mmHg [facility] Work Phone: [phone] Sinotubular Junction 3.0 cm [facility] Work Phone: TR Max Velocity 2.72 m/s [employer] [facility] Work Phone: TR Peak Gradient 30 mmHg [employer] [facility] Work Phone: [facility] Work Phone: [facility] Transthoracicon Aortic Valve: Trileaflet. Moderately thickened cusps. [...] on 08-17-2023 Heart rate 109 /min bpm [facility] [employer] Work Phone: Basic metabolic 1998 panelon 08-16-2023 Anion gap [Moles/Vol] 15 mmol/L High 3 - 13 mmol/L [facility] [employer] Calcium [Mass/Vol] 9.1 mg/dL 8.4 - 10. 4 mg/dL [facility] [employer] Chloride [Moles/Vol] 93 mmol/L Low 98 - 10 7 mmol/L [facility] [employer] CO2 [Moles/Vol] 25 mmol/L 22 - 30 mmol/L [facility] Creatinine [Mass/Vol] 6.01 mg/dL High 0.66 - 1.25 mg/dL [facility] GFR/1.73 sq M.predicted MDRD (S/P/Bld) [Vol rate/Area] 10.2 mL/min/{1.73_m2} Low - PINF [facility] Comment on above: Calculation based on the Chronic Kidney Disease Epidemiology Collaboration (CKD-EPI) equation refit without adjustment for race Glucose [Mass/Vol] 110 mg/dL High 70 - 100 mg/dL [facility] Interpretation and review of laboratory results Abnormal [facility] [employer] Potassium [Moles/Vol] 4.5 mmol/L 3.5 - 5.1 mmol/L [facility] [employer] Sodium [Moles/Vol] 133 mmol/L Low 135 - 145 mmol/L [facility] [employer] Urea nitrogen [Mass/Vol] 40 mg/dL High 9 - 20 mg/d L [facility] CBC W Auto Differential pane l (Bld)Ordered By: Aric Montejo on 08-16-2023 Basophils (Bld) [#/Vol] 0.1 10*3/uL 0.0 - 0.2 10*3/uL [facility] Basophils/100 WBC (Bld) 1.3 % 0.0 - 2.0 % [facility] Eosinophils (Bld) [#/Vol] 0.5 10*3/uL 0.0 - 0.5 10*3/uL [facility] Eosinophils/100 WBC (Bld) 5.1 % 1.0 - 6.0 % [facility] Erythrocyte distribution width (RBC) [Ratio] 14.7 % High 11.5 - 14.5 % [facility] Hematocrit (Bld) [Volume fraction] 41.6 % 40.0 - 52.0 % [facility] Hemoglobin (Bld) [Mass/Vol] 14.5 g/dL 13.0 - 18.0 g/dL [facility] Interpretation and review of laboratory results Abnormal [facility] Lymphocytes (Bld) [#/Vol] 1.3 10*3/uL 1.0 - 4.3 10*3/uL [facility] Lymphocytes/100 WBC (Bld) 14.2 % Low 20.0 - 40.0 % [facility] MCH (RBC) [Entitic mass] 31.5 pg 26. 0 - 34.[address] [facility] MCHC (RBC) [Mass/Vol] 34.8 % 32.0 - 36.0 % [facility] MCV (RBC) [Entitic vol] 90.5 fL 80.0 - 98.0 fL [facility] Monocytes (Bld) [#/Vol] 1.3 10*3/uL High 0.0 - 0.8 10*3/uL [facility] Monocytes/100 WBC (Bld) 13.5 % High 2.0 - 10.0 % [facility] Neutrophils (Bld) [#/Vol] 6.2 10*3/uL 1.8 - 7.0 10*3/uL [facility] Neutrophils/100 WBC (Bld) 65.9 % 40.0 - 80.0 % [facility] Nucleated RBC/100 WBC (Bld) [Ratio] 0.1 % [facility] Platelet mean volume (Bld) [Entitic vol] 7.3 fL Low 7.4 - 12.4 fL [facility] Platelets (Bld) [#/Vol] 254 10*3/uL 140 - 440 10*3/uL [facility] RBC (Bld) [#/Vol] 4.60 10*6/uL 4.40 - 5.9 0 10*6/uL [facility] WBC (Bld) [#/Vol] 9.5 10*3/uL 3.6 - 10.7 10*3/uL [facility] Laboratory - Chemistry and C hemistry - challengeon 08-16-2023 Troponin I.cardiac [Mass/Vol] 0.062 ng/mL [facility]/mL [facility] Troponin I.cardiac [Mass/Vol] 0.037 ng/mL High [facility] 0.[facility] ng/mL [facility] Troponin I.cardiac [Mass/Vol ]on 08-16-2023 Interpretation and review of laboratory results Abnormal [facility] Patients with high levels of Biotin oral intake (ie >5 mg/day) may have falsely decreased Troponin levels. [facility] Interpretation and review of laboratory results Abnormal [facility] Patients with high levels of Biotin oral intake (ie >5 mg/day) may have falsely decreased Troponin levels. [facility] XR Chest Single viewon 08-16 1. Cardiomegaly. 2. No other acute findings. Report Dictated on Electronically Signed By: Justo Milan MD Electronically Signed Date/Time: 08/16/2023 6:42 PM EST [facility] [employer] Patient Name: JUN SNYDER : 1965 Exam Date/Time: 08/16/2023 18:39 Procedure: XR CHEST 1 VIEW Ordering Provider: GRANADOS SHAYA Reason For Exam: CHEST PAIN CHEST PORTABLE CLINICAL INDICATION: CHEST PAIN TECHNIQUE: Portable chest x-ray(s). COMPARISON: September,. FINDINGS: Mild cardiomegaly, stable. Lungs are grossly clear. No significant vascular congestion. No apparent pneumothorax. Bony thorax grossly unremarkable. [facility] [employer] Justo Milan MD - 08/16/2023 Patient [...] Electronically Signed Date/Time: 08/16/2023 6:42 PM EST [employer] [facility] Study observation (narrative) [employer] [facility] XR Chest Single viewOrdered By: Justo Milan on 08-16-2023 [employer] Work Phone: [employer] BLDon 12-17-2022 Potassium [Moles/Vol] 7.6 mmol/L Critically high 3.7-5.1 [facility] Comment on above: Order Comment: Dominick richards Type: BLOOD SPECIMEN Ordering Facility: [facility] Address: , , Performed By: #### K 1 #### [facility] CLIA [id number] [address] [place] [employer]OTASSIUM BLDon 08-19-2022 Potassium [Moles/Vol] 7.0 mmol/L Critically high 3.7-5.1 [facility] Comment on above: Order Comment: Dominick richards Type: BLOOD SPECIMEN Ordering Facility: [facility] Address: , , Performed By: #### K 1 #### [facility] CLIA [id number] [address] [place] [facility]ASSIUM BLDon 06-16-2022 Potassium [Moles/Vol] 6.3 mmol/L Critically high 3.7-5.1 [facility] Comment on above: Order Comment: Dominick richards Type: BLOOD SPECIMEN Ordering Facility: [facility] Address: , , Performed By: #### K 1 #### [place] [facility] CLIA [id number] [address] OF [place] [facility] 05-12-2022 Hemoglobin (Bld) [Mass/Vol] 8.4 g/dL Low 13.0-17.0 [facility] Comment on above: Order Comment: Speci men Type: BLOOD SPECIMEN Ordering Facility: [facility] Address: , , Performed By: #### 7 18-7 #### [facility] CLIA [id number] 1 [place] [id number] [facility] XA [facility]21 XA Special Angiography Procedure Patient Name: JUN SNYDER Special Procedures ACCESSION EXAM DATE/TIME PROCEDURE ORDERING PROVIDER [id number] 09/15/2021 11:10 EST XA Special Angiography MD [...] and the needle was removed. A 3 Trinidadian dilator was advanced over the wire and [...] CHRISTOPHER Transcribed Date and Time: 09/15/2021 12:16 [facility] IR DIALYSIS INJ W/ANGIOPLAST Yon 11-22-2020 IR DIALYSIS INJ W/ANGIOPLASTY Final Report DATE OF EXAM: Nov 22 2020 2:02PM JOE Mallory - IR DIALYSIS INJ W/ANGIOPLASTY / PROCEDURE [...] This was initially converted to a 6 Trinidadian sheath and later converted to a 7 Trinidadian sheath. Reflux fistulogram for done in several [...] levels with a 6 x 40 mm [place] balloon. This gave minimal improvement. We then exchanged the 6 mm balloon for an 8 x 40 mm [place] balloon. This gave more moderate improvement. At that point we changed the 6 [place] sheath to a 7 Trinid[place] sheath and placed a 9 x 40 [...] site of puncture trauma. With the 7 Trinidadian sheath removed pressure was held on the [...] dilation of stenotic lesion as noted above. Senior Electronics Engineer: RC Transcribe Date/Time: Nov 22 2020 2:07P Dictated by : VINCENT DE LA ROSA MD This examination was interpreted and the report reviewed and electronically signed by: VINCENT DE LA ROSA MD on Nov 22 2020 2:13PM EST Normal [facility] XA SPECIAL ANGIOGRAPHY PROCE DUREon 10-17-2020 Patient Name: GLENN SNYDER Special Procedures ACCESSION EXAM DATE/TIME PROCEDURE ORDERING PROVIDER [id number] 10/17/2020 08:27 EST XA Special [facility] BISI Reason For Exam (XA Special [...] KEVIN Transcribed Date and Time: 10/17/2020 1:05 [facility], [place] Mike, [facility] Incoming Radiology Results From Counts Include [facility] - 10/17/2020 1:05 PM EST Patient Name: GLENN SNYDER Special Procedures ACCESSION EXAM DATE/TIME PROCEDURE ORDERING PROVIDER [id number] 10/17/2020 08:27 EST XA Special Angiography MD [...] KEVIN Transcribed Date and Time: 10/17/2020 1:05 [place], [place] XA Special Angiography Proce [facility] 10-17-2020 XA Special Angiography Procedure Patient Name: GLENN SNYDER Special Procedures ACCESSION EXAM DATE/TIME PROCEDURE ORDERING PROVIDER [id number] 10/17/2020 08:27 EST XA Special Angiography MD [...] Transcribed Date and Time: 10/17/2020 1:05 Normal [facility] Basic Metabolic Panelon 04-27 Anion gap [Moles/Vol] 17 mmol/L Normal 9-18 [facility] Comment on above: Performed By: #### B MP #### [facility] [address] [place], [place] [address] Calcium [Mass/Vol] 9.1 mg/dL Normal 8.5-10.2 [facility] Comment on above: Performed By: #### B MP #### [facility] [address] [place], [place] [address] Chloride [Moles/Vol] 100 mmol/L Normal 97-105 [facility] Comment on above: Performed By: #### B MP #### [facility] [address] [place], [place] [address] CO2 Blood 18 mmol/L Low 22-30 [facility] Comment on above: Performed By: #### B MP #### [facility] [address] [place], [place] [address] Creatinine [Mass/Vol] 13.39 mg/dL High 0.73-1.22 [facility] Comment on above: Performed By: #### B MP #### [facility] [address] [place], [place] [address] Glucose [Mass/Vol] 83 mg/dL Normal 74-99 [facility] Comment on above: Result Comment: The [place] Diabetes Association (ADA) provides guidance for cutoff [...] Standards of Medical Care in Diabetes 2016; [place] [employer]. Diabetes Care. 2016;39(Suppl 1). Performed By: #### B MP #### [address] [address] Potassium [Moles/Vol] 4.8 mmol/L Normal 3.7-5.1 [facility] Comment on above: Performed By: #### B MP #### [address] [address] Sodium [Moles/Vol] 135 mmol/L Low 136-144 [facility] Comment on above: Performed By: #### B MP #### [address] [address] Urea nitrogen [Mass/Vol] 61 mg/dL High 9-24 [facility] Comment on above: Performed By: #### B MP #### [place] [id number] Hemogramon 05-10-2020 Erythrocyte distribution width (RBC) [Ratio] 12.7 % Normal 11.6-14.4 [facility] Comment on above: Performed By: #### C BC1 #### [address] [address] Hematocrit (Bld) [Volume fraction] 28.4 % Low 40.1-51.0 [facility] Comment on above: Performed By: #### C BC1 #### [address] [address] Hemoglobin (Bld) [Mass/Vol] 9.2 g/dL Low 13.7-17.5 [facility] Comment on above: Performed By: #### C BC1 #### [address], [place] [address] MCH (RBC) [Entitic mass] 30.6 pg Normal 25.7-32.2 [facility] Comment on above: Performed By: #### C BC1 #### [facility] [address] [place], [place] [address] MCHC (RBC) [Mass/Vol] 32.4 % Normal 32.3-36.5 [facility] Comment on above: Performed By: #### C BC1 #### [facility] [address] [place] [id number] MCV (RBC) [Entitic vol] 94.4 fL Normal 83.2-95.6 [facility] Comment on above: Performed By: #### C BC1 #### [facility] [address] [place] [address] Platelet mean volume (Bld) [Entitic vol] 10.1 fL Normal 8.7-12.0 [facility] Comment on above: Performed By: #### C BC1 #### [facility] [address] [place] [id number] Platelets (Bld) [#/Vol] 278 thou/cmm Normal 141-365 [facility] Comment on above: Performed By: #### C BC1 #### [facility] [address] [place] [address] RBC (Bld) [#/Vol] 3.01 mil/cmm Low 4.63-6.08 [facility] Comment on above: Performed By: #### C BC1 #### [facility] [address] [place] [address] RDW SD 43.8 fl Normal 36.1-45.8 [facility] Comment on above: Performed By: #### C BC1 #### [facility] [address] [place], [place] [address] WBC (Bld) [#/Vol] 8.58 thou/cmm Normal 4.23-9.07 [facility] Comment on above: Performed By: #### C BC1 #### [facility] [address] [place] [id number] MDRD GFRon 05-10-2020 GFR/1.73 sq M predicted among non-blacks MDRD (S/P/Bld) [Vol rate/Area] 3.89 mL/min/{1.73_m2} Normal >60mL/min/1.7 3m2 [facility] Comment on above: Result Comment: If t he patient is , multiply the result by 1.210. Performed By: #### G FR #### [place] [id number] Protimeon 05-10-2020 INR Coag (PPP) [Relative time] 0.98 {INR} Normal 0.90-1.30 [facility] Comment on above: Result Comment: [place] min K Antagonist (VKA) Therapeutic Range: INR 2 to 3 (Target INR of 2.5) Note: For patients treated with VKA drugs, such as warfarin, the [place] [employer] 2012 Guideline recommends [...] Chest 2012; 141:7S-47S Randall RA et al. [facility] 2017; 70: 252-289 Performed By: #### P T #### [address] [address] PT Coag (PPP) [Time] 10.6 s Normal 9.7-13.0 [facility] Comment on above: Performed By: #### P T #### [facility] [address] [place], [place] [address] Rapid, COVID 19on 03-20-2020 Rapid, COVID 19 Negative Normal Negative [facility] Comment on above: Result Comment: This test has been authorized by the FDA under an Emergency Use Authorization (EUA). Performed By: #### R COVD #### [facility] [address] [place], [place] [address] Basic Metabolic Panelon 02-25 Anion gap [Moles/Vol] 14 mmol/L Normal 9-18 [facility] Comment on above: Performed By: #### B MP #### [facility] [address] [place], [place] [address] Calcium [Mass/Vol] 10.0 mg/dL Normal 8.5-10.2 [facility] Comment on above: Performed By: #### B MP #### [facility] [address] [place], [place] [address] Chloride [Moles/Vol] 95 mmol/L Low 97-105 [facility] Comment on above: Performed By: #### B MP #### [facility] [address] [place], [place] [address] CO2 Blood 26 mmol/L Normal 22-30 [facility] Comment on above: Performed By: #### B MP #### [facility] [address] [place], [place] [address] Creatinine [Mass/Vol] 9.29 mg/dL High 0.73-1.22 [facility] Comment on above: Performed By: #### B MP #### [facility] [address] [place], [place] [address] Glucose [Mass/Vol] 84 mg/dL Normal 74-99 [facility] Comment on above: Result Comment: The [place] Diabetes Association (ADA) provides guidance for cutoff [...] Standards of Medical Care in Diabetes 2016; [place] [employer]. Diabetes Care. 2016;39(Suppl 1). Performed By: #### B MP #### [facility] [address] [place], [place] [address] Potassium [Moles/Vol] 3.7 mmol/L Normal 3.7-5.1 [facility] Comment on above: Performed By: #### B MP #### [facility] [address] [place], [place] [address] Sodium [Moles/Vol] 135 mmol/L Low 136-144 [facility] Comment on above: Performed By: #### B MP #### [facility] [address] [place], [place] [address] Urea nitrogen [Mass/Vol] 32 mg/dL High 9-24 [facility] Comment on above: Performed By: #### B MP #### [facility] [address] [place], [place] [address] Hematologyon 03-13-2020 INR Coag (PPP) [Relative time] 0.96 {INR} 0.90 - 1.30 [facility] PT Coag (PPP) [Time] 10.4 s 9.7 - 1 3.0 sec [facility] Hematocrit (Bld) [Volume fraction] 30.6 % Low 40.1 - 51.0 % [facility] Hemoglobin (Bld) [Mass/Vol] 10.8 g/dL Low 13.7 - 17.5 g/dL [facility] MCH (RBC) [Entitic mass] 31.0 pg 25. 7 - 32.2 pg [facility] MCV (RBC) [Entitic vol] 87.9 fL 83.2 - 95.6 fl [facility] Platelets (Bld) [#/Vol] 269 thou/cmm 141 - 365 thou/cmm [facility] RBC (Bld) [#/Vol] 3.48 mil/cmm Low 4.63 - 6.0 8 mil/cmm [facility] WBC (Bld) [#/Vol] 10.79 thou/cmm High 4.23 - 9 .07 thou/cmm [facility] Hemogramon 03-13-2020 Erythrocyte distribution width (RBC) [Ratio] 13.2 % Normal 11.6-14.4 [facility] Comment on above: Performed By: #### C BC1 #### [facility] [address] [place], [place] [address] Hematocrit (Bld) [Volume fraction] 30.6 % Low 40.1-51.0 [facility] Comment on above: Performed By: #### C BC1 #### [facility] [address] [place], [place] [address] Hemoglobin (Bld) [Mass/Vol] 10.8 g/dL Low 13.7-17.5 [facility] Comment on above: Performed By: #### C BC1 #### [facility] [address] [place] [address] MCH (RBC) [Entitic mass] 31.0 pg Normal 25.7-32.2 [facility] Comment on above: Performed By: #### C BC1 #### [facility] [address] [place] [address] MCHC (RBC) [Mass/Vol] 35.3 % Normal 32.3-36.5 [facility] Comment on above: Performed By: #### C BC1 #### [facility] [address] [place] [address] MCV (RBC) [Entitic vol] 87.9 fL Normal 83.2-95.6 [facility] Comment on above: Performed By: #### C BC1 #### [facility] [address] [place] [address] Platelet mean volume (Bld) [Entitic vol] 10.1 fL Normal 8.7-12.0 [facility] Comment on above: Performed By: #### C BC1 #### [facility] [address] [place], [place] [address] Platelets (Bld) [#/Vol] 269 thou/cmm Normal 141-365 [facility] Comment on above: Performed By: #### C BC1 #### [facility] [address] [place], [place] [address] RBC (Bld) [#/Vol] 3.48 mil/cmm Low 4.63-6.08 [facility] Comment on above: Performed By: #### C BC1 #### [facility] [address] [place] [id number] RDW SD 42.3 fl Normal 36.1-45.8 [facility] Comment on above: Performed By: #### C BC1 #### [facility] [address] [place], [place] [address] WBC (Bld) [#/Vol] 10.79 thou/cmm High 4.23-9.07 [facility] Comment on above: Performed By: #### C BC1 #### [facility] [address] [place], [place] [address] MDRD GFRon 03-13-2020 GFR/1.73 sq M predicted among non-blacks MDRD (S/P/Bld) [Vol rate/Area] 5.94 mL/min/{1.73_m2} Normal >60mL/min/1.7 3m2 [facility] Comment on above: Result Comment: If t he patient is , multiply the result by 1.210. Performed By: #### G FR #### [facility] [address] [place], [place] [address] Metabolic Panelon 03-13-2020 Anion gap [Moles/Vol] 14 mmol/L 9 - 18 mmol/L [facility] Calcium [Mass/Vol] 10.0 mg/dL 8.5 - 10. 2 mg/dL [facility] Chloride [Moles/Vol] 95 mmol/L Low 97 - 10 5 mmol/L [facility] CO2 [Moles/Vol] 26 mmol/L 22 - 30 mmol/L [facility] Creatinine [Mass/Vol] 9.29 mg/dL High 0.73 - 1.22 mg/dL [facility] Glucose [Mass/Vol] 84 mg/dL 74 - 99 mg/dL [facility] Potassium [Moles/Vol] 3.7 mmol/L 3.7 - 5.1 mmol/L [facility] Sodium [Moles/Vol] 135 mmol/L Low 136 - 144 mmol/L [facility] Urea nitrogen [Mass/Vol] 32 mg/dL High 9 - 24 mg/d L [facility] Otheron 03-13-2020 GFR/1.73 sq M.predicted MDRD (S/P/Bld) [Vol rate/Area] 5.94 mL/min/{1.73_m2} >60mL/min/1.7 3m2 [facility] Erythrocyte distribution width (RBC) [Entitic vol] 42.3 fL 36.1 - 45.8 fl [facility] Erythrocyte distribution width (RBC) [Ratio] 13.2 % 11.6 - 14.4 % [facility] MCHC (RBC) [Mass/Vol] 35.3 % 32.3 - 36.5 % [facility] Platelet mean volume (Bld) [Entitic vol] 10.1 fL 8.7 - 12.0 fl [facility] Protimeon 03-13-2020 INR Coag (PPP) [Relative time] 0.96 {INR} Normal 0.90-1.30 [facility] Comment on above: Result Comment: [place] min K Antagonist (VKA) Therapeutic Range: INR 2 to 3 (Target INR of 2.5) Note: For patients treated with VKA drugs, such as warfarin, the [place] [employer] 2012 Guideline recommends [...] Chest 2012; 141:7S-47S Randall RA et al. [facility] 2017; 70: 252-289 Performed By: #### P T #### [place] [address] PT Coag (PPP) [Time] 10.4 s Normal 9.7-13.0 [facility] Comment on above: Performed By: #### P T #### [place] [address] US VEIN MAPPING UPPER BILon 02-13-2020 US VEIN MAPPING UPPER HO * * *Final Report* * * DATE OF EXAM: Feb 13 2020 2:22PM [facility] 1085 - VEIN MAPPING UPPER HO / [...] unobstructed. There is no deep venous thrombosis. Senior Electronics Engineer: [facility] Transcribe Date/Time: Feb 13 2020 4:27P Dictated by : ANALISA GRANADOS MD This examination was interpreted and the report reviewed and electronically signed by: ANALISA GRANADOS MD on Feb 13 2020 4:30PM EST Normal [facility] Basic Metabolic PanelOrdered By: Darell Sanches on 10-27-2019 Anion gap [Moles/Vol] 18 mmol/L [facility] Work Phone: [phone] Calcium [Mass/Vol] 9.2 mg/dL 8.4 - 10. 4 mg/dL [facility] Work Phone: [phone] Chloride [Moles/Vol] 93 mmol/L Low 98 - 10 7 mmol/L [facility] Work Phone: [phone] CO2 [Moles/Vol] 24 mmol/L 22 - 30 mmol/L [facility] Work Phone: [phone] Creatinine [Mass/Vol] 9.99 mg/dL High 0.52 - 1.25 mg/dL [facility] Work Phone: [phone] EGFR IF NonAfrican [place]i 5.5 mL/min >60 [facility] Work Phone: [phone] Comment on above: Source- MDRD equatio n with creatinine calibration to IDMS(NKDEP) eGFR not recommended for drug dose adjustment GFR/1.73 sq M.predicted among blacks MDRD (S/P/Bld) [Vol rate/Area] 6.6 mL/min/{1.73_m2} >60 [facility] Work Phone: [phone] Glucose [Mass/Vol] 103 mg/dL High 70 - 100 mg/dL [facility] Work Phone: [phone] Potassium [Moles/Vol] 4.5 mmol/L 3.5 - 5.1 mmol/L [facility] Work Phone: [phone] Sodium [Moles/Vol] 135 mmol/L 135 - 145 mmol/L [facility] Work Phone: [phone] Urea nitrogen [Mass/Vol] 49 mg/dL High 7 - 20 mg/d L [facility] Work Phone: [phone] CBC Auto DifferentialOrdered By: Darell Sanches on 10-27-2019 Absolute Baso # 0.1 10*3/uL 0 - 0.2 10*3/uL [facility] Work Phone: [phone] Absolute Neut # 6.6 10*3/uL 1.8 - 7 10*3/uL [facility] Work Phone: [phone] Basophils/100 WBC (Bld) 0.7 % 0 - 2 % S [facility] Work Phone: [phone] Eosinophils (Bld) [#/Vol] 0.5 10*3/uL 0 - 0.5 10*3/uL [facility] Work Phone: [phone] 22 Eosinophils/100 WBC (Bld) 4.9 % 1 - 6 % [facility] Work Phone: 1 22 Erythrocyte distribution width (RBC) [Ratio] 14.0 % 11.5 - 14.5 % [facility] Work Phone: 1 22 Granulocytes/100 WBC (Bld) 62.2 % 40 - 80 % [facility] Work Phone: 1 Hematocrit (Bld) [Volume fraction] 28.3 % Low 40 - 52 % [facility] Work Phone: Hemoglobin (Bld) [Mass/Vol] 9.5 g/dL Low 13 - 18 g/dL [facility] Work Phone: 22 Lymphocytes (Bld) [#/Vol] 2.0 10*3/uL 1 - 4.3 10*3/uL [facility] Work Phone: 1 Lymphocytes/100 WBC (Bld) 18.8 % Low 20 - 40 % [facility] Work Phone: 1 MCH (RBC) [Entitic mass] 29.1 pg 26 - 34 pg [facility] Work Phone: 22 MCHC 33.6 % 32 - 36 % [facility] Work Phone: MCV (RBC) [Entitic vol] 86.7 fL 80 - 98 fL [facility] Work Phone: 22 Monocytes (Bld) [#/Vol] 1.4 10*3/uL High 0 - 0.8 10*3/uL [facility] Work Phone: 22 Monocytes/100 WBC (Bld) 13.4 % High 2 - 10 % [facility] Work Phone: Platelet mean volume (Bld) [Entitic vol] 8.2 fL 7.4 - 10.4 fL [facility] Work Phone: 1 Platelets (Bld) [#/Vol] 259 10*3/uL 140 - 440 10*3/uL [facility] Work Phone: RBC (Bld) [#/Vol] 3.27 10*6/uL Low 4.4 - 5.9 10*6/uL [facility] Work Phone: 1 WBC (Bld) [#/Vol] 10.6 10*3/uL 3.6 - 10.7 10*3/uL [facility] Work Phone: 1 MAGNESIUMOrdered By: Darell Sanches on 10-27-2019 Magnesium [Mass/Vol] 2.6 mg/dL High 1.6 - 2 .3 mg/dL [facility] Work Phone: [phone] No Panel InformationOrdered By: Darell Sanches on 10-27-2019 Interpretation and review of laboratory results Abnormal [facility] Work Phone: Test Performed by [facility] [id number] [place], [place] [address]A Work Phone: PhosphorusOrdered By: Darell Sanches on 10-27-2019 Phosphate [Mass/Vol] 9.9 mg/dL High 2.5 - 4 .5 mg/dL [facility] Work Phone: Basic Metabolic PanelOrdered By: Darell Sanches on 10-26-2019 Anion gap [Moles/Vol] 14 mmol/L [facility] Work Phone: Calcium [Mass/Vol] 9.0 mg/dL 8.4 - 10. 4 mg/dL [facility] Work Phone: Chloride [Moles/Vol] 94 mmol/L Low 98 - 10 7 mmol/L [facility] Work Phone: CO2 [Moles/Vol] 29 mmol/L 22 - 30 mmol/L [facility] Work Phone: Creatinine [Mass/Vol] 7.06 mg/dL High 0.52 - 1.25 mg/dL [facility] Work Phone: EGFR IF NonAfrican [place]i 8.2 mL/min >60 [facility] Work Phone: [phone] Comment on above: Source- MDRD equatio n with creatinine calibration to IDMS(NKDEP) eGFR not recommended for drug dose adjustment GFR/1.73 sq M.predicted among blacks MDRD (S/P/Bld) [Vol rate/Area] 9.9 mL/min/{1.73_m2} >60 [facility] Work Phone: 1 Glucose [Mass/Vol] 95 mg/dL 70 - 100 mg/dL [facility] Work Phone: Potassium [Moles/Vol] 4.2 mmol/L 3.5 - 5.1 mmol/L [facility] Work Phone: Sodium [Moles/Vol] 136 mmol/L 135 - 145 mmol/L [facility] Work Phone: [phone] Urea nitrogen [Mass/Vol] 27 mg/dL High 7 - 20 mg/d L [facility] Work Phone: [phone] CBC Auto DifferentialOrdered By: Darell Sanches on 10-26-2019 Absolute Baso # 0.1 10*3/uL 0 - 0.2 10*3/uL [facility] Work Phone: [phone] Absolute Neut # 7.1 10*3/uL High 1.8 - 7 10*3/uL [facility] Work Phone: [phone] Basophils/100 WBC (Bld) 0.8 % 0 - 2 % [facility] Work Phone: Eosinophils (Bld) [#/Vol] 0.5 10*3/uL 0 - 0.5 10*3/uL [facility] Work Phone: [phone] Eosinophils/100 WBC (Bld) 4.7 % 1 - 6 % [facility] Work Phone: [phone] Erythrocyte distribution width (RBC) [Ratio] 13.9 % 11.5 - 14.5 % [facility] Work Phone: [phone] Granulocytes/100 WBC (Bld) 63.9 % 40 - 80 % [facility] Work Phone: [phone] Hematocrit (Bld) [Volume fraction] 29.2 % Low 40 - 52 % [facility] Work Phone: [phone] Hemoglobin (Bld) [Mass/Vol] 9.9 g/dL Low 13 - 18 g/dL [facility] Work Phone: 1 Interpretation and review of laboratory results Abnormal [facility] Work Phone: Lymphocytes (Bld) [#/Vol] 2.0 10*3/uL 1 - 4.3 10*3/uL [facility] Work Phone: 1 Lymphocytes/100 WBC (Bld) 17.8 % Low 20 - 40 % [facility] Work Phone: MCH (RBC) [Entitic mass] 29.5 pg 26 - 34 pg [facility] Work Phone: 1 MCHC 33.9 % 32 - 36 % [facility] Work Phone: 1 MCV (RBC) [Entitic vol] 87.0 fL 80 - 98 fL [facility] Work Phone: Monocytes (Bld) [#/Vol] 1.4 10*3/uL High 0 - 0.8 10*3/uL [facility] Work Phone: 1 Monocytes/100 WBC (Bld) 12.8 % High 2 - 10 % [facility] Work Phone: Platelet mean volume (Bld) [Entitic vol] 8.0 fL 7.4 - 10.4 fL [facility] Work Phone: Platelets (Bld) [#/Vol] 262 10*3/uL 140 - 440 10*3/uL [facility] Work Phone: RBC (Bld) [#/Vol] 3.36 10*6/uL Low 4.4 - 5.9 10*6/uL [facility] Work Phone: WBC (Bld) [#/Vol] 11.0 10*3/uL High 3.6 - 10.7 10*3/uL [facility] Work Phone: Test Performed by [employer], [address] [place] [address] [facility] Work Phone: Culture Blood #1Ordered By: Brett Encarnacion on 10-26-2019 Blood Culture, Routine Bio[employer] Film[employer] testing is not routinely performed on Gram positive bacilli. If a Listeria infection is highly suspected, contact the Microbiology laboratory [phone] Abnormal [facility] Work Phone: Blood Culture, Routine Propionibacterium acnes Abnormal [facility] Work Phone: Blood Culture, Routine Isolated: Contamination likely unless additional blood culture sets are found to be positive with the same organism. [facility] Work Phone: Interpretation and review of laboratory results Abnormal [facility] Work Phone: [phone] Test Performed by [employer], [address] [place] [address] Specimen Source Comment:Blood [facility] Work Phone: MAGNESIUMOrdered By: Darell Sanches on 10-26-2019 Magnesium [Mass/Vol] 2.2 mg/dL 1.6 - 2 .3 mg/dL [facility] Work Phone: [phone] No Panel InformationOrdered By: Darell Sanches on 10-26-2019 Interpretation and review of laboratory results Abnormal [facility] Work Phone: Test Performed by [employer], [address] [place] [address] [facility] Work Phone: PhosphorusOrdered By: Darell Sanches on 10-26-2019 Phosphate [Mass/Vol] 7.1 mg/dL High 2.5 - 4 .5 mg/dL [facility] Work Phone: US BIOPSY RENAL RIGHT PERCOr dered By: Cindy Patel on 10-26-2019 Patient Name: GLENN SNYDER ---Ultrasound--- Exam Date/Time 10/26/2019 10:57:27 EST Exam US Biopsy Renal Right Ordering Physician MD DA, CINDY MATHEWS Accession Number [id number] CPT4 Codes 76616 (), 68053 () Reason For Exam renal failure Report ULTRASOUND GUIDED RIGHT LOWER POLE KIDNEY BIOPSY Reasons for examination: Acute renal failure. After review of prior studies, patient interview and examination, the risks, benefits, and alternatives of the biopsy procedure were discussed, informed consent was obtained. Systems Auditor US scans of the right kidney were [...] Phone: Mike, [facility] Incoming Radiology Results From Counts Include [facility] - 10/26/2019 12:05 PM EST Patient Name: GLENN SNYDER ---Ultrasound--- Exam Date/Time 10/26/2019 10:57:27 EST Exam US Biopsy Renal Right Ordering Physician MD DA, [facility] Accession Number [id number] CPT4 Codes 57321 (), 53327 () Reason For Exam renal failure Report ULTRASOUND GUIDED RIGHT LOWER POLE KIDNEY BIOPSY Reasons for examination: Acute renal failure. After review of prior studies, patient interview and examination, the risks, benefits, and alternatives of the biopsy procedure were discussed, informed consent was obtained. Systems Auditor US scans of the right kidney were [...] Ordering Physician MD PEDRAZA AZIZ Accession Number [id number] Reason For Exam non tunneled to tunneled cath Report FLUOROSCOPIC AND ULTRASOUND-GUIDED TUNNELED DIALYSIS CATHETER PLACEMENT REMOVAL OF RIGHT INTERNAL JUGULAR TEMPORARY HEMODIALYSIS CATHETER CLINICAL HISTORY: Need for 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 central venous access Fluoroscopy time: Acute renal [...] Phone: Mike, [facility] Incoming [facility]iology Results From Counts Include [facility] - 10/26/2019 3:29 PM EST Patient Name: GLENN SNYDER ---Special Procedures--- Exam Date/Time 10/26/2019 15:01:32 EST Exam XA Special Angiography Procedure Ordering Physician MD KEILA, AZIZ Accession Number [id number] Reason For Exam non tunneled to tunneled cath Report FLUOROSCOPIC AND ULTRASOUND-GUIDED TUNNELED DIALYSIS CATHETER PLACEMENT REMOVAL OF RIGHT INTERNAL JUGULAR TEMPORARY HEMODIALYSIS CATHETER CLINICAL HISTORY: Need for 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 central venous access Fluoroscopy time: Acute renal [...] and Time: 10/26/2019 3:28 [facility] Work Phone: Basic Metabolic PanelOrdered By: Darell Sanches on 10-25-2019 Anion gap [Moles/Vol] 15 mmol/L [facility] Work Phone: Calcium [Mass/Vol] 8.7 mg/dL 8.4 - 10. 4 mg/dL [facility] Work Phone: Chloride [Moles/Vol] 95 mmol/L Low 98 - 10 7 mmol/L [facility] Work Phone: CO2 [Moles/Vol] 26 mmol/L 22 - 30 mmol/L [facility] Work Phone: Creatinine [Mass/Vol] 9.71 mg/dL High 0.52 - 1.25 mg/dL [facility] Work Phone: EGFR IF NonAfrican [place]i 5.7 mL/min >60 [facility] Work Phone: [phone] Comment on above: Source- MDRD equatio n with creatinine calibration to IDMS(NKDEP) eGFR not recommended for drug dose adjustment GFR/1.73 sq M.predicted among blacks MDRD (S/P/Bld) [Vol rate/Area] 6.9 mL/min/{1.73_m2} >60 [facility] Work Phone: Glucose [Mass/Vol] 96 mg/dL 70 - 100 mg/dL [facility] Work Phone: Potassium [Moles/Vol] 4.3 mmol/L 3.5 - 5.1 mmol/L [facility] Work Phone: [phone] Sodium [Moles/Vol] 135 mmol/L 135 - 145 mmol/L [facility] Work Phone: Urea nitrogen [Mass/Vol] 39 mg/dL High 7 - 20 mg/d L [facility] Work Phone: CBC Auto DifferentialOrdered By: Darell Sanches on 10-25-2019 Absolute Baso # 0.1 10*3/uL 0 - 0.2 10*3/uL [facility] Work Phone: 1 Absolute Neut # 6.7 10*3/uL 1.8 - 7 10*3/uL [facility] Work Phone: Basophils/100 WBC (Bld) 0.9 % 0 - 2 % [facility] Work Phone: Eosinophils (Bld) [#/Vol] 0.5 10*3/uL 0 - 0.5 10*3/uL [facility] Work Phone: Eosinophils/100 WBC (Bld) 4.5 % 1 - 6 % [facility] Work Phone: Erythrocyte distribution width (RBC) [Ratio] 13.8 % 11.5 - 14.5 % [facility] Work Phone: Granulocytes/100 WBC (Bld) 60.1 % 40 - 80 % [facility] Work Phone: Hematocrit (Bld) [Volume fraction] 28.3 % Low 40 - 52 % [facility] Work Phone: Hemoglobin (Bld) [Mass/Vol] 9.7 g/dL Low 13 - 18 g/dL [facility] Work Phone: Interpretation and review of laboratory results Abnormal [facility] Work Phone: Lymphocytes (Bld) [#/Vol] 2.6 10*3/uL 1 - 4.3 10*3/uL [facility] Work Phone: Lymphocytes/100 WBC (Bld) 22.9 % 20 - 40 % [facility] Work Phone: MCH (RBC) [Entitic mass] 30.0 pg 26 - 34 pg [facility] Work Phone: MCHC 34.3 % 32 - 36 % [facility] Work Phone: 1 MCV (RBC) [Entitic vol] 87.3 fL 80 - 98 fL [facility] Work Phone: 1 Monocytes (Bld) [#/Vol] 1.3 10*3/uL High 0 - 0.8 10*3/uL [facility] Work Phone: 1 Monocytes/100 WBC (Bld) 11.6 % High 2 - 10 % [facility] Work Phone: Platelet mean volume (Bld) [Entitic vol] 8.1 fL 7.4 - 10.4 fL [facility] Work Phone: Platelets (Bld) [#/Vol] 252 10*3/uL 140 - 440 10*3/uL [facility] Work Phone: RBC (Bld) [#/Vol] 3.24 10*6/uL Low 4.4 - 5.9 10*6/uL [facility] Work Phone: WBC (Bld) [#/Vol] 11.2 10*3/uL High 3.6 - 10.7 10*3/uL [facility] Work Phone: Test Performed by [employer], [address] [facility] [address] [employer] [address] Work Phone: MAGNESIUMOrdered By: Darell Sanches on 10-25-2019 Magnesium [Mass/Vol] 2.2 mg/dL 1.6 - 2 .3 mg/dL [facility] Work Phone: No Panel InformationOrdered By: Darell Sanches on 10-25-2019 Interpretation and review of laboratory results Abnormal [facility] Work Phone: Test Performed by [employer], [address] [place] [address] Work Phone: PhosphorusOrdered By: Darell Sanches on 10-25-2019 Phosphate [Mass/Vol] 9.3 mg/dL High 2.5 - 4 .5 mg/dL [facility] Work Phone: APTTOrdered By: Cindy Patel on 10-24-2019 aPTT Coag (Bld) [Time] 28.5 s 20 - 30.5 s [facility] Work Phone: [phone] Comment on above: NOTE: The therapeuti c time for Heparin anticoagulation, based on Xa activity inhibition, is an APTT of 46-80 seconds. Basic Metabolic PanelOrdered By: Darell Sanches on 10-24-2019 Anion gap [Moles/Vol] 10 mmol/L [facility] Work Phone: [phone] Calcium [Mass/Vol] 8.6 mg/dL 8.4 - 10. 4 mg/dL [facility] Work Phone: Chloride [Moles/Vol] 94 mmol/L Low 98 - 10 7 mmol/L [facility] Work Phone: CO2 [Moles/Vol] 31 mmol/L High 22 - 30 mmol/L [facility] Work Phone: 1 Creatinine [Mass/Vol] 7.11 mg/dL High 0.52 - 1.25 mg/dL [facility] Work Phone: [phone] EGFR IF NonAfrican [place]i 8.1 mL/min >60 [facility] Work Phone: [phone] Comment on above: Source- MDRD equatio n with creatinine calibration to IDMS(NKDEP) eGFR not recommended for drug dose adjustment GFR/1.73 sq M.predicted among blacks MDRD (S/P/Bld) [Vol rate/Area] 9.8 mL/min/{1.73_m2} >60 [facility] Work Phone: [phone] Glucose [Mass/Vol] 93 mg/dL 70 - 100 mg/dL [facility] Work Phone: Potassium [Moles/Vol] 4.1 mmol/L 3.5 - 5.1 mmol/L [facility] Work Phone: [phone] Sodium [Moles/Vol] 135 mmol/L 135 - 145 mmol/L [facility] Work Phone: [phone] Urea nitrogen [Mass/Vol] 28 mg/dL High 7 - 20 mg/d L [facility] Work Phone: [phone] CBC Auto DifferentialOrdered By: Darell Sanches on 10-24-2019 Absolute Baso # 0.1 10*3/uL 0 - 0.2 10*3/uL [facility] Work Phone: 1 Absolute Neut # 6.2 10*3/uL 1.8 - 7 10*3/uL [facility] Work Phone: 1 22 Basophils/100 WBC (Bld) 0.7 % 0 - 2 % [facility] Work Phone: Eosinophils (Bld) [#/Vol] 0.4 10*3/uL 0 - 0.5 10*3/uL [facility] Work Phone: 1 Eosinophils/100 WBC (Bld) 3.7 % 1 - 6 % [facility] Work Phone: 1 Erythrocyte distribution width (RBC) [Ratio] 14.0 % 11.5 - 14.5 % [facility] Work Phone: Granulocytes/100 WBC (Bld) 63.8 % 40 - 80 % [facility] Work Phone: Hematocrit (Bld) [Volume fraction] 27.0 % Low 40 - 52 % [facility] Work Phone: Hemoglobin (Bld) [Mass/Vol] 9.2 g/dL Low 13 - 18 g/dL [facility] Work Phone: Interpretation and review of laboratory results Abnormal [facility] Work Phone: Lymphocytes (Bld) [#/Vol] 1.8 10*3/uL 1 - 4.3 10*3/uL [facility] Work Phone: Lymphocytes/100 WBC (Bld) 18.8 % Low 20 - 40 % [facility] Work Phone: MCH (RBC) [Entitic mass] 29.6 pg 26 - 34 pg [facility] Work Phone: MCHC 34.1 % 32 - 36 % [facility] Work Phone: 1 MCV (RBC) [Entitic vol] 86.9 fL 80 - 98 fL [facility] Work Phone: Monocytes (Bld) [#/Vol] 1.3 10*3/uL High 0 - 0.8 10*3/uL [facility] Work Phone: 1 Monocytes/100 WBC (Bld) 13.0 % High 2 - 10 % [facility] Work Phone: Platelet mean volume (Bld) [Entitic vol] 8.4 fL 7.4 - 10.4 fL [facility] Work Phone: Platelets (Bld) [#/Vol] 245 10*3/uL 140 - 440 10*3/uL [facility] Work Phone: RBC (Bld) [#/Vol] 3.10 10*6/uL Low 4.4 - 5.9 10*6/uL [facility] Work Phone: WBC (Bld) [#/Vol] 9.7 10*3/uL 3.6 - 10.7 10*3/uL [facility] Work Phone: Culture Blood #1Ordered By: Brett Encarnacion on 10-24-2019 Blood Culture, Routine No growth at 5 days. [facility] Work Phone: Test Performed by [employer], [address] [place] [address] Specimen Source Comment:Blood [facility] Work Phone: Glomerular Basement Membrane (GBM) Antibody IgGOrdered By: Randolph Liz on 10-24-2019 GBM Ab, IgG (IFA) Negative Negative NA [facility] Work Phone: Comment on above: INTERPRETIVE INFORMA [...] biopsy. Test developed and characteristics determined by [employer]. See Compliance Statement D: [employer]/CS Performed by [employer], [address] [place] [id number] [email or web address], Malvin Slade MD, Lab. Director MAGNESIUMOrdered By: Darell Sanches on 10-24-2019 Magnesium [Mass/Vol] 2.1 mg/dL 1.6 - 2 .3 mg/dL [facility] Work Phone: No Panel InformationOrdered By: Darell Sanches on 10-24-2019 Interpretation and review of laboratory results Abnormal [facility] Work Phone: Test Performed by [facility], [facility] [address] Work Phone: Test Performed by [facility], [address] Work Phone: PhosphorusOrdered By: Darell Sanches on 10-24-2019 Phosphate [Mass/Vol] 5.8 mg/dL High 2.5 - 4 .5 mg/dL [facility] Work Phone: Protime-INROrdered By: Darren Patel on 10-24-2019 INR Coag (PPP) [Relative time] 1.1 {INR} [facility] Work Phone: Comment on above: Recommended Anticoag [...] [Time] 11.4 s 9 - 12 s [facility] Work Phone: [phone] Comment on above: . Basic Metabolic PanelOrdered By: Darell Sanches on 10-23-2019 Anion gap [Moles/Vol] 17 mmol/L [facility] Work Phone: Calcium [Mass/Vol] 8.6 mg/dL 8.4 - 10. 4 mg/dL [facility] Work Phone: Chloride [Moles/Vol] 94 mmol/L Low 98 - 10 7 mmol/L [facility] Work Phone: [phone] CO2 [Moles/Vol] 24 mmol/L 22 - 30 mmol/L [facility] Work Phone: [phone] Creatinine [Mass/Vol] 11.03 mg/dL High 0.52 - 1.25 mg/dL [facility] Work Phone: EGFR IF NonAfrican [place]i 4.9 mL/min >60 [facility] Work Phone: [phone] Comment on above: Source- MDRD equatio n with creatinine calibration to IDMS(NKDEP) eGFR not recommended for drug dose adjustment GFR/1.73 sq M.predicted among blacks MDRD (S/P/Bld) [Vol rate/Area] 5.9 mL/min/{1.73_m2} >60 [facility] Work Phone: Glucose [Mass/Vol] 97 mg/dL 70 - 100 mg/dL [facility] Work Phone: Potassium [Moles/Vol] 3.9 mmol/L 3.5 - 5.1 mmol/L [facility] Work Phone: [phone] Sodium [Moles/Vol] 135 mmol/L 135 - 145 mmol/L [facility] Work Phone: [phone] Urea nitrogen [Mass/Vol] 61 mg/dL High 7 - 20 mg/d L [facility] Work Phone: [phone] CBC Auto DifferentialOrdered By: Darell Sanches on 10-23-2019 Absolute Baso # 0.1 10*3/uL 0 - 0.2 10*3/uL [facility] Work Phone: [phone] Absolute Neut # 7.1 10*3/uL High 1.8 - 7 10*3/uL [facility] Work Phone: [phone] Basophils/100 WBC (Bld) 1.0 % 0 - 2 % S [facility] Work Phone: [phone] Eosinophils (Bld) [#/Vol] 0.5 10*3/uL 0 - 0.5 10*3/uL [facility] Work Phone: [phone] Eosinophils/100 WBC (Bld) 4.7 % 1 - 6 % [facility] Work Phone: Erythrocyte distribution width (RBC) [Ratio] 13.8 % 11.5 - 14.5 % [facility] Work Phone: 1 Granulocytes/100 WBC (Bld) 65.3 % 40 - 80 % [facility] Work Phone: Hematocrit (Bld) [Volume fraction] 27.6 % Low 40 - 52 % [facility] Work Phone: Hemoglobin (Bld) [Mass/Vol] 9.5 g/dL Low 13 - 18 g/dL [facility] Work Phone: 1 Interpretation and review of laboratory results Abnormal [facility] Work Phone: 1 Lymphocytes (Bld) [#/Vol] 1.9 10*3/uL 1 - 4.3 10*3/uL [facility] Work Phone: Lymphocytes/100 WBC (Bld) 17.3 % Low 20 - 40 % [facility] Work Phone: MCH (RBC) [Entitic mass] 29.7 pg 26 - 34 pg [facility] Work Phone: MCHC 34.3 % 32 - 36 % [facility] Work Phone: MCV (RBC) [Entitic vol] 86.6 fL 80 - 98 fL [facility] Work Phone: Monocytes (Bld) [#/Vol] 1.3 10*3/uL High 0 - 0.8 10*3/uL [facility] Work Phone: Monocytes/100 WBC (Bld) 11.7 % High 2 - 10 % S [employer] Work Phone: Platelet mean volume (Bld) [Entitic vol] 7.7 fL 7.4 - 10.4 fL [facility] Work Phone: ) Platelets (Bld) [#/Vol] 248 10*3/uL 140 - 440 10*3/uL [facility] Work Phone: RBC (Bld) [#/Vol] 3.18 10*6/uL Low 4.4 - 5.9 10*6/uL [facility] Work Phone: WBC (Bld) [#/Vol] 10.8 10*3/uL High 3.6 - 10.7 10*3/uL [facility] Work Phone: 1 Test Performed by [employer], [facility] [address] [place], [place] [id number] [place], [place] [address]A Work Phone: MAGNESIUMOrdered By: Darell Sanches on 10-23-2019 Magnesium [Mass/Vol] 2.1 mg/dL 1.6 - 2 .3 mg/dL [facility] Work Phone: 1 No Panel InformationOrdered By: Darell Sanches on 10-23-2019 Interpretation and review of laboratory results Abnormal [facility] Work Phone: Test Performed by [employer], [address] [place], [place] [id number] [place], [place] [address]A Work Phone: PhosphorusOrdered By: Darell Sanches on 10-23-2019 Phosphate [Mass/Vol] 9.5 mg/dL High 2.5 - 4 .5 mg/dL [facility] Work Phone: Basic Metabolic PanelOrdered By: Delon Jessica on 10-22-2019 Anion gap [Moles/Vol] 14 mmol/L [facility] Work Phone: Calcium [Mass/Vol] 8.9 mg/dL 8.4 - 10. 4 mg/dL [facility] Work Phone: Chloride [Moles/Vol] 95 mmol/L Low 98 - 10 7 mmol/L [facility] Work Phone: CO2 [Moles/Vol] 28 mmol/L 22 - 30 mmol/L [facility] Work Phone: Creatinine [Mass/Vol] 8.75 mg/dL High 0.52 - 1.25 mg/dL [facility] Work Phone: EGFR IF NonAfrican [place]i 6.4 mL/min >60 [facility] Work Phone: Comment on above: Source- MDRD equatio n with creatinine calibration to IDMS(NKDEP) eGFR not recommended for drug dose adjustment GFR/1.73 sq M.predicted among blacks MDRD (S/P/Bld) [Vol rate/Area] 7.7 mL/min/{1.73_m2} >60 [facility] Work Phone: [phone] Glucose [Mass/Vol] 94 mg/dL 70 - 100 mg/dL [facility] Work Phone: [phone] Potassium [Moles/Vol] 4.3 mmol/L 3.5 - 5.1 mmol/L [facility] Work Phone: [phone] Sodium [Moles/Vol] 137 mmol/L 135 - 145 mmol/L [facility] Work Phone: [phone] Urea nitrogen [Mass/Vol] 53 mg/dL High 7 - 20 mg/d L [facility] Work Phone: [phone] CBC Auto DifferentialOrdered By: Delon Jessica on 10-22-2019 Absolute Baso # 0.1 10*3/uL 0 - 0.2 10*3/uL [facility] Work Phone: [phone] Absolute Neut # 5.9 10*3/uL 1.8 - 7 10*3/uL [facility] Work Phone: [phone] Basophils/100 WBC (Bld) 0.9 % 0 - 2 % [facility] Work Phone: [phone] Eosinophils (Bld) [#/Vol] 0.3 10*3/uL 0 - 0.5 10*3/uL [facility] Work Phone: [phone] Eosinophils/100 WBC (Bld) 3.0 % 1 - 6 % [facility] Work Phone: [phone] Erythrocyte distribution width (RBC) [Ratio] 14.2 % 11.5 - 14.5 % [facility] Work Phone: [phone] Granulocytes/100 WBC (Bld) 63.0 % 40 - 80 % [facility] Work Phone: [phone] Hematocrit (Bld) [Volume fraction] 27.7 % Low 40 - 52 % [facility] Work Phone: [phone] Hemoglobin (Bld) [Mass/Vol] 9.4 g/dL Low 13 - 18 g/dL [facility] Work Phone: [phone] Interpretation and review of laboratory results Abnormal [facility] Work Phone: [phone] Lymphocytes (Bld) [#/Vol] 1.6 10*3/uL 1 - 4.3 10*3/uL [facility] Work Phone: [phone] Lymphocytes/100 WBC (Bld) 17.2 % Low 20 - 40 % [facility] Work Phone: 1 MCH (RBC) [Entitic mass] 29.3 pg 26 - 34 pg [facility] Work Phone: 1 MCHC 33.8 % 32 - 36 % [facility] Work Phone: 1 MCV (RBC) [Entitic vol] 86.7 fL 80 - 98 fL [facility] Work Phone: 1 Monocytes (Bld) [#/Vol] 1.5 10*3/uL High 0 - 0.8 10*3/uL [facility] Work Phone: 1 Monocytes/100 WBC (Bld) 15.9 % High 2 - 10 % [facility] Work Phone: 1 Platelet mean volume (Bld) [Entitic vol] 8.0 fL 7.4 - 10.4 fL [facility] Work Phone: 1 Platelets (Bld) [#/Vol] 264 10*3/uL 140 - 440 10*3/uL [facility] Work Phone: RBC (Bld) [#/Vol] 3.20 10*6/uL Low 4.4 - 5.9 10*6/uL [facility] Work Phone: WBC (Bld) [#/Vol] 9.3 10*3/uL 3.6 - 10.7 10*3/uL [facility] Work Phone: 1 Test Performed by [facility], [address] [place] [id number] [facility] Work Phone: 1 Calcium, IonizedOrdered By: Delon Jessica on 10-22-2019 Interpretation and review of laboratory results Abnormal [facility] Work Phone: 1 Ionized Ca 4.20 mg/dL Low 4.3 - 5.2 mg/dL [facility] Work Phone: 1 pH (Bld) 7.43 [pH] [facility] Work Phone: Test Performed by [employer], [address], [place], [place] [address] [facility] Work Phone: FOLATEOrdered By: Earlene deluna on 10-22-2019 Folate 9.2 ng/mL 2.8 - 20 ng/mL [facility] Work Phone: 1 Glomerular Basement Membrane (GBM) Antibody IgGOrdered By: Jeana Pedraza on 10-22-2019 GBM Ab, IgG (IFA) Negative Negative NA [facility] Work Phone: Comment on above: INTERPRETIVE [...] biopsy. Test developed and characteristics determined by [employer]. See Compliance Statement D: [employer]/CS Performed by [employer], [address] [place] [id number] www.[email or web address], Malvin Slade MD, Lab. Director Iron and TIBCOrdered By: Al Irving on 10-22-2019 Interpretation and review of laboratory results Abnormal [facility] Work Phone: 1 Iron [Mass/Vol] 64 ug/dL 49 - 181 ug/dL [facility] Work Phone: Sat 27 % 15 - 50 % [facility] Work Phone: TIBC 234 ug/dL Low 261 - 497 ug/dL [facility] Work Phone: 1 Test Performed by [employer], [address], [place], [place] [address] [facility] Work Phone: MagnesiumOrdered By: Delon Jessica on 10-22-2019 Magnesium [Mass/Vol] 2.0 mg/dL 1.6 - 2 .3 mg/dL [facility] Work Phone: 1 No Panel InformationOrdered By: Earlene Irving on 10-22-2019 Test Performed by [employer], [address] Work Phone: No Panel InformationOrdered By: Delon Jessica on 10-22-2019 Interpretation and review of laboratory results Abnormal [facility] Work Phone: Test Performed by [facility], [address] Work Phone: PhosphorusOrdered By: Patrick Jessica on 10-22-2019 Phosphate [Mass/Vol] 8.7 mg/dL High 2.5 - 4 .5 mg/dL [facility] Work Phone: T4, FREEOrdered By: Earlene toure on 10-22-2019 Free T4 [Mass/Vol] 1.16 ng/dL 0.78 - 2. 19 ng/dL [facility] Work Phone: Test Performed by [facility], [address] [place], [place] [address]A Work Phone: TSH without ReflexOrdered By : Earlene Irving on 10-22-2019 TSH 0.836 u[IU]/mL 0.465 - 4.68 u[IU]/mL [facility] Work Phone: Test Performed by [facility], [address] [place], [place] [address]A Work Phone: VL RENAL ARTERIAL DUPLEX COM PLETEOrdered By: Brett Encarnacion on 10-22-2019 [facility] Renal Artery Duplex Ordering Physician: Brett Encarnacion Settlement Processor: Laura Walsh Interpreting Physician: Luciano Shannon Location: [facility] Indications: Hypertension. Smoking history. Acute Kidney [...] supine position. Images were obtained using a Capton E9 vascular ultrasound machine. The abdominal aorta, [...] + Kidney le (more content not included)... [facility] Work Phone: Mike, [facility] Cardiology Results From Tia/[place] - 10/22/2019 3:01 PM EST [facility] Renal Artery Duplex Ordering Physician: Brett Encarnacion Settlement Processor: Laura Walsh Interpreting Physician: Luciano Shannon Location: [facility] Indications: Hypertension. Smoking history. Acute Kidney [...] supine position. Images were obtained using a [employer] E9 vascular ultrasound machine. The abdominal aorta, [...] electronically signed by Luciano Shannon 10/22/2019 15:01 [facility] Phone: Vitamin Y06Byoedro By: Akin Irving on 10-22-2019 Cobalamin (Vitamin B12) [Mass/Vol] 959 pg/mL High 239 - 931 pg/mL [facility] Work Phone: [phone] Interpretation and review of laboratory results Abnormal [facility] Work Phone: Basic Metabolic PanelOrdered By: Delon Jessica on 10-21-2019 Anion gap [Moles/Vol] 16 mmol/L [facility] Work Phone: Calcium [Mass/Vol] 8.7 mg/dL 8.4 - 10. 4 mg/dL [facility] Work Phone: Chloride [Moles/Vol] 94 mmol/L Low 98 - 10 7 mmol/L [facility] Work Phone: CO2 [Moles/Vol] 25 mmol/L 22 - 30 mmol/L [facility] Work Phone: Creatinine [Mass/Vol] 11.16 mg/dL High 0.52 - 1.25 mg/dL [facility] Work Phone: EGFR IF NonAfrican Kuwaiti 4.8 mL/min >60 [facility] Work Phone: Comment on above: Source- [...] 135 mmol/L 135 - 145 mmol/L [facility] Work Phone: [phone] Urea nitrogen [Mass/Vol] 83 mg/dL High 7 - 20 mg/d L [facility] Work Phone: [phone] CBC Auto DifferentialOrdered By: Delon Jessica on 10-21-2019 Absolute Baso # 0.1 10*3/uL 0 - 0.2 10*3/uL [facility] Work Phone: [phone] Absolute Neut # 6.4 10*3/uL 1.8 - 7 10*3/uL [facility] Work Phone: [phone] Basophils/100 WBC (Bld) 0.9 % 0 - 2 % [facility] Work Phone: [phone] Eosinophils (Bld) [#/Vol] 0.2 10*3/uL 0 - 0.5 10*3/uL [facility] Work Phone: [phone] Eosinophils/100 WBC (Bld) 2.5 % 1 - 6 % [facility] Work Phone: [phone] Erythrocyte distribution width (RBC) [Ratio] 14.8 % High 11.5 - 14.5 % [facility] Work Phone: 1 Granulocytes/100 WBC (Bld) 64.7 % 40 - 80 % [facility] Work Phone: 1 Hematocrit (Bld) [Volume fraction] 27.6 % Low 40 - 52 % [facility] Work Phone: [phone] Hemoglobin (Bld) [Mass/Vol] 9.7 g/dL Low 13 - 18 g/dL [facility] Work Phone: [phone] Comment on above: Post Transfusion Interpretation and review of laboratory results Abnormal [facility] Work Phone: [phone] Lymphocytes (Bld) [#/Vol] 1.8 10*3/uL 1 - 4.3 10*3/uL [facility] Work Phone: [phone] Lymphocytes/100 WBC (Bld) 18.5 % Low 20 - 40 % [facility] Work Phone: 1 MCH (RBC) [Entitic mass] 30.0 pg 26 - 34 pg [facility] Work Phone: [phone] MCHC 35.3 % 32 - 36 % [facility] Work Phone: [phone] MCV (RBC) [Entitic vol] 84.8 fL 80 - 98 fL [facility] Work Phone: [phone] Monocytes (Bld) [#/Vol] 1.3 10*3/uL High 0 - 0.8 10*3/uL [facility] Work Phone: 1 Monocytes/100 WBC (Bld) 13.4 % High 2 - 10 % S [facility] Work Phone: 1 Platelet mean volume (Bld) [Entitic vol] 7.8 fL 7.4 - 10.4 fL [facility] Work Phone: 1 Platelets (Bld) [#/Vol] 299 10*3/uL 140 - 440 10*3/uL [facility] Work Phone: RBC (Bld) [#/Vol] 3.25 10*6/uL Low 4.4 - 5.9 10*6/uL [facility] Work Phone: 1 WBC (Bld) [#/Vol] 9.8 10*3/uL 3.6 - 10.7 10*3/uL [facility] Work Phone: 1 Test Performed by [employer], [address] [place] [address] [facility] Work Phone: 1 Calcium, IonizedOrdered By: Delon Jessica on 10-21-2019 Interpretation and review of laboratory results Abnormal [facility] Work Phone: Ionized Ca 4.10 mg/dL Low 4.3 - 5.2 mg/dL [facility] Work Phone: 1 pH (Bld) 7.41 [pH] [facility] Work Phone: 1 Test Performed by [employer], [address] [place] [address] [facility] Work Phone: MagnesiumOrdered By: Delon Jessica on 10-21-2019 Magnesium [Mass/Vol] 1.9 mg/dL 1.6 - 2 .3 mg/dL [facility] Work Phone: 1 No Panel InformationOrdered By: Delon Jessica on 10-21-2019 Interpretation and review of laboratory results Abnormal [facility] Work Phone: 1 Test Performed by [employer], [address] [place] [address] [facility] Work Phone: PERIPHERAL BLOOD SMEAR, PATH REVIEWOrdered By: Jeana Pedraza on 10-21-2019 Peripheral Smear see below [facility] Work Phone: Comment on above: See report under Fredy gical Pathology. Test Performed by [facility], [address] [place], [place] [address] [facility] Work Phone: PhosphorusOrdered By: Patrick Jessica on 10-21-2019 Phosphate [Mass/Vol] 9.2 mg/dL High 2.5 - 4 .5 mg/dL [facility] Work Phone: US RETROPERITONEAL COMPLETEO rdered By: Randolph Liz on 10-21-2019 Patient Name: GLENN SNYDER ---Ultrasound--- Exam Date/Time 10/21/2019 15:32:01 EST Exam US Retroperitoneal Complete Ordering Physician 59RANDOLPH JEREZ Accession Number [id number] CPT4 Codes 07392 () Reason For Exam blossom Report US [...] Transcribed Date and Time: 10/21/2019 7:31 [facility] Work Phone: Mike, [facility] Incoming Radiology Results From Counts Include [facility] - 10/21/2019 7:32 PM EST Patient Name: GLENN SNYDER ---Ultrasound--- Exam Date/Time 10/21/2019 15:32:01 EST Exam US Retroperitoneal Complete Ordering Physician [id number] BAKER Accession Number [id number] CPT4 Codes 65689 () Reason For Exam blossom Report US [...] Ordering Physician MD ENCARNACION MATTHEW Accession Number [id number] CPT4 Codes 13486 () Reason For Exam vomiting Report ABDOMEN [...] WENDELL Transcribed Date and Time: 10/21/2019 6:30 [facility] Work Phone: Mike, [facility] Incoming Radiology Results From Counts Include [facility] - 10/21/2019 6:30 PM EST Patient Name: GLENN SNYDER ---Diagnostic Radiology--- Exam Date/Time 10/21/2019 18:02:19 EST Exam CR Abdomen AP Ordering Physician MD ENCARNACION MATTHEW Accession Number [id number] CPT4 Codes 57261 () Reason For Exam vomiting Report ABDOMEN [...] WENDELL Transcribed Date and Time: 10/21/2019 6:30 [facility] Work Phone: ANAOrdered By: Jeana Pedraza on 10-20-2019 CIARAN TITER <1:40 <1:40 {titer} [facility] Work Phone: [phone] Test Performed by [employer], [facility] [place] [address] [facility] Work Phone: [phone] Anti-Neutrophilic Cytoplasmi c AntibodyOrdered By: Jeana Pedraza on 10-20-2019 C-ANCA Not detected Not-Detected {titer} [facility] Work Phone: [phone] p-ANCA Titer Not detected Not-Detected {titer} [facility] Work Phone: [phone] Test Performed by [employer], [facility] [place] [address] [facility] Work Phone: [phone] Basic Metabolic PanelOrdered By: Brett Encarnacion on 10-20-2019 Anion gap [Moles/Vol] 15 mmol/L [facility] Work Phone: [phone] Calcium [Mass/Vol] 8.4 mg/dL 8.4 - 10. 4 mg/dL [facility] Work Phone: Chloride [Moles/Vol] 94 mmol/L Low 98 - 10 7 mmol/L [facility] Work Phone: CO2 [Moles/Vol] 26 mmol/L 22 - 30 mmol/L [facility] Work Phone: Creatinine [Mass/Vol] 9.4 mg/dL High 0.52 - 1.25 mg/dL [facility] Work Phone: EGFR IF NonAfrican Kuwaiti 5.9 mL/min >60 [facility] Work Phone: Comment on above: Source- MDRD equatio n with creatinine calibration to IDMS(NKDEP) eGFR not recommended for drug dose adjustment GFR/1.73 sq M.predicted among blacks MDRD (S/P/Bld) [Vol rate/Area] 7.1 mL/min/{1.73_m2} >60 [facility] Work Phone: Glucose [Mass/Vol] 110 mg/dL High 70 - 100 mg/dL [facility] Work Phone: [phone] Interpretation and review of laboratory results Abnormal [facility] Work Phone: Potassium [Moles/Vol] 4.0 mmol/L 3.5 - 5.1 mmol/L [facility] Work Phone: Sodium [Moles/Vol] 135 mmol/L 135 - 145 mmol/L [facility] Work Phone: [phone] Urea nitrogen [Mass/Vol] 76 mg/dL High 7 - 20 mg/d L [facility] Work Phone: [phone] Test Performed by [employer] [address] [facility] Work Phone: [phone] Basic Metabolic PanelOrdered By: Delon Jessica on 10-20-2019 Anion gap [Moles/Vol] 18 mmol/L [facility] Work Phone: [phone] Calcium [Mass/Vol] 7.9 mg/dL Low 8.4 - 10. 4 mg/dL [facility] Work Phone: [phone] Chloride [Moles/Vol] 95 mmol/L Low 98 - 10 7 mmol/L [facility] Work Phone: [phone] CO2 [Moles/Vol] 24 mmol/L 22 - 30 mmol/L [facility] Work Phone: [phone] Creatinine [Mass/Vol] 13.53 mg/dL High 0.52 - 1.25 mg/dL [facility] Work Phone: EGFR IF NonAfrican Kuwaiti 3.9 mL/min >60 [facility] Work Phone: [phone] Comment on above: Source- MDRD equatio n with creatinine calibration to IDMS(NKDEP) eGFR not recommended for drug dose adjustment GFR/1.73 sq M.predicted among blacks MDRD (S/P/Bld) [Vol rate/Area] 4.7 mL/min/{1.73_m2} >60 [facility] Work Phone: [phone] Glucose [Mass/Vol] 102 mg/dL High 70 - 100 mg/dL [facility] Work Phone: [phone] Interpretation and review of laboratory results Abnormal [facility] Work Phone: [phone] Potassium [Moles/Vol] 4.7 mmol/L 3.5 - 5.1 mmol/L [facility] Work Phone: [phone] Sodium [Moles/Vol] 136 mmol/L 135 - 145 mmol/L [facility] Work Phone: [phone] Urea nitrogen [Mass/Vol] 123 mg/dL High 7 - 20 mg/d L [facility] Work Phone: [phone] Test Performed by [employer], [address] [place], [place] [address] [facility] Work Phone: [phone] CBC Auto DifferentialOrdered By: Delon Jessica on 10-20-2019 Absolute Baso # 0.0 10*3/uL 0 - 0.2 10*3/uL [facility] Work Phone: [phone] Absolute Neut # 6.2 10*3/uL 1.8 - 7 10*3/uL [facility] Work Phone: [phone] Basophils/100 WBC (Bld) 0.4 % 0 - 2 % S [facility] [employer] [facility] Work Phone: 1 Eosinophils (Bld) [#/Vol] 0.1 10*3/uL 0 - 0.5 10*3/uL [facility] Work Phone: 1 22 Eosinophils/100 WBC (Bld) 1.1 % 1 - 6 % [facility] Work Phone: 1 Erythrocyte distribution width (RBC) [Ratio] 13.4 % 11.5 - 14.5 % [facility] Work Phone: 1 Granulocytes/100 WBC (Bld) 69.5 % 40 - 80 % [facility] Work Phone: Hematocrit (Bld) [Volume fraction] 19.3 % Low 40 - 52 % [facility] Work Phone: Hemoglobin (Bld) [Mass/Vol] 6.6 g/dL Critically low 13 - 18 g/dL [facility] Work Phone: 1 Interpretation and review of laboratory results Abnormal [facility] Work Phone: 1 Lymphocytes (Bld) [#/Vol] 1.6 10*3/uL 1 - 4.3 10*3/uL [facility] Work Phone: 1 22 Lymphocytes/100 WBC (Bld) 18.3 % Low 20 - 40 % [facility] Work Phone: MCH (RBC) [Entitic mass] 29.4 pg 26 - 34 pg [facility] Work Phone: 22 MCHC 34.1 % 32 - 36 % [facility] Work Phone: 1 MCV (RBC) [Entitic vol] 86.2 fL 80 - 98 fL [facility] Work Phone: Monocytes (Bld) [#/Vol] 1.0 10*3/uL High 0 - 0.8 10*3/uL [facility] Work Phone: [phone] Monocytes/100 WBC (Bld) 10.7 % High 2 - 10 % [facility] Work Phone: Platelet mean volume (Bld) [Entitic vol] 7.4 fL 7.4 - 10.4 fL [facility] Work Phone: 1 Platelets (Bld) [#/Vol] 267 10*3/uL 140 - 440 10*3/uL [facility] Work Phone: RBC (Bld) [#/Vol] 2.24 10*6/uL Low 4.4 - 5.9 10*6/uL [facility] Work Phone: WBC (Bld) [#/Vol] 9.0 10*3/uL 3.6 - 10.7 10*3/uL [facility] Work Phone: 1 Calcium, IonizedOrdered By: Delon Jessica on 10-20-2019 Interpretation and review of laboratory results Abnormal [facility] Work Phone: Ionized Ca 3.80 mg/dL Low 4.3 - 5.2 mg/dL [facility] Work Phone: pH (Bld) 7.41 [pH] [facility] Work Phone: Test Performed by [employer], [address] [place] [address] [facility] Work Phone: Hemoglobin and Hematocrit, B loodOrdered By: Brett Encarnacion on 10-20-2019 Hematocrit (Bld) [Volume fraction] 25.2 % Low 40 - 52 % [facility] Work Phone: Hemoglobin (Bld) [Mass/Vol] 9.0 g/dL Low 13 - 18 g/dL [facility] Work Phone: Interpretation and review of laboratory results Abnormal [facility] Work Phone: 1 Test Performed by [employer], [facility] [address] [place] [address] [facility] Work Phone: Hemoglobin and Hematocrit, B loodOrdered By: Delon Jessica on 10-20-2019 Hematocrit (Bld) [Volume fraction] 19.6 % Low 40 - 52 % [facility] Work Phone: 1 Hemoglobin (Bld) [Mass/Vol] 6.7 g/dL Critically low 13 - 18 g/dL [facility] Work Phone: 1 Interpretation and review of laboratory results Abnormal [facility] Work Phone: 1 Test Performed by [facility], [address] [place], [place] [address]A Work Phone: Laboratory - Blood bankOrder ed By: Delon Jessica on 10-20-2019 ABO and Rh group Nom (Bld) 9500 [facility] Work Phone: MagnesiumOrdered By: Delon Jessica on 10-20-2019 Magnesium [Mass/Vol] 1.8 mg/dL 1.6 - 2 .3 mg/dL [facility] Work Phone: No Panel InformationOrdered By: Delon Jessica on 10-20-2019 Test Performed by [facility], [address] [place] [address] [facility] Work Phone: Test Performed by [facility] [place] [address] [facility] Work Phone: PREPARE RBC (CROSSMATCH), 2 UnitsOrdered By: Delon Jessica on 10-20-2019 Blood product unit ID (Dose) [#] [id number] [facility] Work Phone: Blood product unit ID (Dose) [#] [id number] [facility] Work Phone: Dispense Status Blood Bank transfused [facility] Work Phone: Expiration Date [id number] [facility] Work Phone: Product Code Blood Bank [id number] [facility] Work Phone: [facility] Work Phone: PhosphorusOrdered By: Patrick Jessica on 10-20-2019 Interpretation and review of laboratory results Abnormal [facility] Work Phone: Phosphate [Mass/Vol] 12.3 mg/dL High 2.5 - 4 .5 mg/dL [facility] Work Phone: RBC MORPHOLOGYOrdered By: Caleb Jessica on 10-20-2019 Hypochromia Slight [facility] Work Phone: Poikilocytes Slight [facility] Work Phone: RBC morphology finding Nom (Bld) ABNORMAL [facility] Work Phone: Surgical PathologyOrdered By : Jeana Pedraza on 10-20-2019 Surgical Pathology Report SEE BELOW [facility] Work Phone: [phone] [facility] PATHOLOGY AND LABORATORY MEDICINE [address] [place] [phone] FINAL PERIPHERAL BLOOD REPORT NAME: GLENN SNYDER N [id number] : 1965 53 Y M [facility] NO.: [id number] LOCATION: [place] [address] 5 PROCEDURE 10/19/2019 DATE: SURGEON: JEANA PEDRAZA MD RECEIVED DATE: 10/20/2019 ATTENDING BRETT ENCARNACION REPORT DATE: 10/20/2019 : COPIES TO: DIAGNOSIS: NORMOCYTIC ANEMIA WITH ANISOCYTOSIS, INCLUDING SCHISTOCYTES AND MILD AGGLUTINATION, RULE OUT ANEMIA OF CHRONIC INFLAMMATION/RENAL DISEASE, IRON/NUTRITIONAL DEFICIENCIES, COAGULOPATHY AND/OR PARAPROTEINEMIA NO BLASTS OR DYSGRANULOPOIESIS IS SEEN. POT FIRER/POT FIRER Signature> YOHANNES DIAL M.D. CLINICAL INFORMATION: Peripheral [...] characteristics determined by the clinical laboratories of [facility]. They have not been cleared by [...] specimens. DEPARTMENT OF PATHOLOGY AND LABORATORY MEDICINE [place], [place] [address] [facility] Work Phone: [phone] Add On Lab TestOrdered By: Michelle Encarnacion on 10-19-2019 Add On Rejected [facility] Work Phone: [phone] Test Performed by [employer], [address] [place], [place] [address] [facility] Work Phone: [phone] Add On Lab TestOrdered By: Cecil Nieves on 10-19-2019 Add On Accepted [facility] Work Phone: [phone] Comment on above: Specimen available & acceptable for analysis. Test Performed by [employer], [address] [place], [place] [address] [facility] Work Phone: [phone] Add On Accepted [facility] Work Phone: [phone] Comment on above: Specimen available & acceptable for analysis. Test Performed by [employer], [address] [place], [place] [address] [facility] Work Phone: Basic Metabolic PanelOrdered By: Brett Encarnacion on 10-19-2019 Anion gap [Moles/Vol] 20 mmol/L [facility] Work Phone: [phone] Calcium [Mass/Vol] 8.4 mg/dL 8.4 - 10. 4 mg/dL [facility] Work Phone: 1 Chloride [Moles/Vol] 96 mmol/L Low 98 - 10 7 mmol/L [facility] Work Phone: CO2 [Moles/Vol] 18 mmol/L Low 22 - 30 mmol/L [facility] Work Phone: [phone] Creatinine [Mass/Vol] 12.26 mg/dL High 0.52 - 1.25 mg/dL [facility] Work Phone: [phone] EGFR IF NonAfrican Kuwaiti 4.3 mL/min >60 [facility] Work Phone: Comment on above: Source- MDRD equatio n with creatinine calibration to IDMS(NKDEP) eGFR not recommended for drug dose adjustment GFR/1.73 sq M.predicted among blacks MDRD (S/P/Bld) [Vol rate/Area] 5.2 mL/min/{1.73_m2} >60 [facility] Work Phone: [phone] Glucose [Mass/Vol] 109 mg/dL High 70 - 100 mg/dL [facility] Work Phone: [phone] Interpretation and review of laboratory results Abnormal [facility] Work Phone: [phone] Potassium [Moles/Vol] 4.4 mmol/L 3.5 - 5.1 mmol/L [facility] Work Phone: [phone] Sodium [Moles/Vol] 134 mmol/L Low 135 - 145 mmol/L [facility] Work Phone: [phone] Urea nitrogen [Mass/Vol] 118 mg/dL High 7 - 20 mg/d L [facility] Work Phone: [phone] Test Performed by [facility], [address] [place] [address] [facility] Work Phone: [phone] Blood Occult Stool Screen #1 Ordered By: Callie Nieves on 10-19-2019 Hemoglobin.gastrointesti nal Ql (Stl) Negative Negative NA [facility] Work Phone: 1 Test Performed by [facility], [address] [place], [place], [place] [address] [facility] Work Phone: 1 C3 ComplementOrdered By: Nadia z Keila on 10-19-2019 C3 Complement 115 mg/dL 85 - 165 mg/dL [facility] Work Phone: C4 ComplementOrdered By: Nadia z Keila on 10-19-2019 C4 Complement 37 mg/dL 14 - 44 mg/dL [facility] Work Phone: 1 CBC Auto DifferentialOrdered By: Jeana Pedraza on 10-19-2019 Absolute Baso # 0.0 10*3/uL 0 - 0.2 10*3/uL [facility] Work Phone: 1 Absolute Neut # 7.7 10*3/uL High 1.8 - 7 10*3/uL [facility] Work Phone: Basophils/100 WBC (Bld) 0.1 % 0 - 2 % [facility] Work Phone: Eosinophils (Bld) [#/Vol] 0.0 10*3/uL 0 - 0.5 10*3/uL [facility] Work Phone: 1 Eosinophils/100 WBC (Bld) 0.0 % Low 1 - 6 % [facility] Work Phone: Erythrocyte distribution width (RBC) [Ratio] 13.1 % 11.5 - 14.5 % [facility] Work Phone: Granulocytes/100 WBC (Bld) 93.1 % High 40 - 80 % [facility] Work Phone: Hematocrit (Bld) [Volume fraction] 26.9 % Low 40 - 52 % [facility] Work Phone: Hemoglobin (Bld) [Mass/Vol] 9.1 g/dL Low 13 - 18 g/dL [facility] Work Phone: Interpretation and review of laboratory results Abnormal [facility] Work Phone: Lymphocytes (Bld) [#/Vol] 0.4 10*3/uL Low 1 - 4.3 10*3/uL [facility] Work Phone: [phone] 22 Lymphocytes/100 WBC (Bld) 5.1 % Low 20 - 40 % [facility] Work Phone: 1 MCH (RBC) [Entitic mass] 29.2 pg 26 - 34 pg [facility] Work Phone: MCHC 33.8 % 32 - 36 % [facility] Work Phone: MCV (RBC) [Entitic vol] 86.5 fL 80 - 98 fL [facility] Work Phone: Monocytes (Bld) [#/Vol] 0.1 10*3/uL 0 - 0.8 10*3/uL [facility] Work Phone: 1 22 Monocytes/100 WBC (Bld) 1.7 % Low 2 - 10 % [facility] Work Phone: Platelet mean volume (Bld) [Entitic vol] 8.0 fL 7.4 - 10.4 fL [facility] Work Phone: Platelets (Bld) [#/Vol] 246 10*3/uL 140 - 440 10*3/uL [facility] Work Phone: 22 RBC (Bld) [#/Vol] 3.11 10*6/uL Low 4.4 - 5.9 10*6/uL [facility] Work Phone: WBC (Bld) [#/Vol] 8.3 10*3/uL 3.6 - 10.7 10*3/uL [facility] Work Phone: Test Performed by [facility], [address] [place] [address] [facility] Work Phone: CT Abdomen Pelvis Wo Contras tOrdered By: Callie Nieves on 10-19-2019 Patient Name: GLENN SNYDER ---CT--- Exam Date/Time 10/19/2019 08:12:[address] Abdomen/Pelvis (No PO, No IV) Ordering Physician DO NIEVES DAVID J Accession Number [id number] CPT4 Codes 30506 (CT Abdomen/Pelvis (No PO, No IV)) Reason [...] bilateral renal atrophy. No urologic calcification. 3. Bbmv-gw-hqpngmcg diverticulosis. No acute diverticulitis. Report Dictated on --- Final --- Dictating Physician: MD BUTCHER ANTHONY J Signed Date and Time: 10/19/2019 8:40 am Signed by: MD BUTCHER ANTHONY J Transcribed Date and Time: 10/19/2019 8:41 [facility] Work Phone: Mike, [facility] Incoming Radiology Results From Counts Include [facility] - 10/19/2019 8:42 AM EST Patient Name: GLENN SNYDER ---CT--- Exam Date/Time 10/19/2019 08:12:[address] Abdomen/Pelvis (No PO, No IV) Ordering Physician DO NIEVES DAVID J Accession Number [id number] CPT4 Codes 19464 (CT Abdomen/Pelvis (No PO, No IV)) Reason [...] bilateral renal atrophy. No urologic calcification. 3. Ormj-kg-csdueccy diverticulosis. No acute diverticulitis. Report Dictated on --- Final --- Dictating Physician: MD BUTCHER ANTHONY J Signed Date and Time: 10/19/2019 8:40 am Signed by: MD BUTCHER ANTHONY J Transcribed Date and Time: 10/19/2019 8:41 [facility] Work Phone: Comprehensive Metabolic Pane lOrdered By: Callie Nieves on 10-19-2019 Albumin [Mass/Vol] 3.9 g/dL 3.5 - 5 g/dL [facility] Work Phone: [phone] ALP [Catalytic activity/Vol] 58 U/L 38 - 126 U/L [facility] Work Phone: [phone] ALT [Catalytic activity/Vol] 27 U/L 13 - 69 U/L [facility] Work Phone: [phone] Anion gap [Moles/Vol] 22 mmol/L [facility] Work Phone: [phone] AST [Catalytic activity/Vol] 41 U/L 15 - 46 U/L [facility] Work Phone: [phone] Bilirubin [Mass/Vol] 0.5 mg/dL 0.2 - 1 .3 mg/dL [facility] Work Phone: [phone] Calcium [Mass/Vol] 8.0 mg/dL Low 8.4 - 10. 4 mg/dL [facility] Work Phone: [phone] Chloride [Moles/Vol] 106 mmol/L 98 - 10 7 mmol/L [facility] Work Phone: [phone] CO2 [Moles/Vol] 8 mmol/L Low 22 - 30 mmol/L [facility] Work Phone: [phone] Creatinine [Mass/Vol] 17.04 mg/dL High 0.52 - 1.25 mg/dL [facility] Work Phone: [phone] EGFR IF NonAfrican [place] 3.0 mL/min >60 [facility] Work Phone: [phone] Comment on above: Source- MDRD equatio n with creatinine calibration to IDMS(NKDEP) eGFR not recommended for drug dose adjustment GFR/1.73 sq M.predicted among blacks MDRD (S/P/Bld) [Vol rate/Area] 3.6 mL/min/{1.73_m2} >60 [facility] Work Phone: [phone] Glucose [Mass/Vol] 93 mg/dL 70 - 100 mg/dL [facility] Work Phone: [phone] Interpretation and review of laboratory results Abnormal [facility] Work Phone: [phone] Potassium [Moles/Vol] 6.6 mmol/L Critically high 3.5 - 5.1 mmol/L [facility] Work Phone: 1 Protein [Mass/Vol] 7.1 g/dL 6.3 - 8.2 g/dL [facility] Work Phone: Sodium [Moles/Vol] 136 mmol/L 135 - 145 mmol/L [facility] Work Phone: 1 Urea nitrogen [Mass/Vol] 179 mg/dL High 7 - 20 mg/d L [facility] Work Phone: 1 Test Performed by [facility], [address] [place] [id number] [place], [place] [address]A Work Phone: 1 Albumin [Mass/Vol] 4.3 g/dL 3.5 - 5 g/dL [facility] Work Phone: 1 ALP [Catalytic activity/Vol] 68 U/L 38 - 126 U/L [facility] Work Phone: ALT [Catalytic activity/Vol] 31 U/L 13 - 69 U/L [facility] Work Phone: 1 Anion gap [Moles/Vol] 22 mmol/L [facility] Work Phone: AST [Catalytic activity/Vol] 38 U/L 15 - 46 U/L [facility] Work Phone: Bilirubin [Mass/Vol] 0.3 mg/dL 0.2 - 1 .3 mg/dL [facility] Work Phone: 1 Calcium [Mass/Vol] 8.1 mg/dL Low 8.4 - 10. 4 mg/dL [facility] Work Phone: 1 Chloride [Moles/Vol] 104 mmol/L 98 - 10 7 mmol/L [facility] Work Phone: CO2 [Moles/Vol] 10 mmol/L Low 22 - 30 mmol/L [facility] Work Phone: Creatinine [Mass/Vol] 17.95 mg/dL High 0.52 - 1.25 mg/dL [facility] Work Phone: 1 EGFR IF NonAfrican [place]i 2.8 mL/min >60 [facility] Work Phone: [phone] Comment on above: Source- MDRD equatio n with creatinine calibration to IDMS(NKDEP) eGFR not recommended for drug dose adjustment GFR/1.73 sq M.predicted among blacks MDRD (S/P/Bld) [Vol rate/Area] 3.4 mL/min/{1.73_m2} >60 [facility] Work Phone: [phone] Glucose [Mass/Vol] 101 mg/dL High 70 - 100 mg/dL [facility] Work Phone: [phone] Interpretation and review of laboratory results Abnormal [facility] Work Phone: [phone] Potassium [Moles/Vol] 7.3 mmol/L Critically high 3.5 - 5.1 mmol/L [facility] Work Phone: [phone] Protein [Mass/Vol] 7.9 g/dL 6.3 - 8.2 g/dL [facility] Work Phone: [phone] Sodium [Moles/Vol] 136 mmol/L 135 - 145 mmol/L [facility] Work Phone: [phone] Urea nitrogen [Mass/Vol] 179 mg/dL High 7 - 20 mg/d L [facility] Work Phone: Test Performed by [employer] [address] [facility] Work Phone: EKG 12 Lead - Chest PainOrde red By: Callie Nieves on 10-19-2019 [employer] Test Date: 2019-10-19 Pat Name: Glenn Snyder Department: 2[facility]ED Room: 19 Gender: M Solutions 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: MILA : 1965 Requested By: CALLIE NIEVES Order Number: [id number] Reading MD: Alessia Tapia Measurements Intervals [employer] Rate: 97 P: 78 CO: 128 QRS: 49 QRSD: 106 T: 83 QT: 376 QTc: 478 Interpretive Statements SINUS RHYTHM LEFT ATRIAL ABNORMALITY INCOMPLETE RIGHT BUNDLE BRANCH BLOCK LEFT VENTRICULAR HYPERTROPHY BORDERLINE PROLONGED QT INTERVAL No previous ECG available for comparison Electronically Signed On 10-19-2019 8:49:06 EST by Alessia Tapia [facility] Work Phone: Mike, [facility] Incoming Cardiology Results From [facility] - 10/19/2019 8:50 AM EST [employer] [facility] Test Date: 2019-10-19 Pat Name: Glenn Snyder Department: [facility] Room: 19 Gender: M [employer] 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: MILA : 1965 Requested By: CALLIE NIEVES Order Number: [id number] Reading MD: Alessia Tapia Measurements Intervals [employer] Rate: 97 P: 78 CO: 128 QRS: 49 QRSD: 106 T: 83 QT: 376 QTc: 478 Interpretive Statements SINUS RHYTHM LEFT ATRIAL ABNORMALITY INCOMPLETE RIGHT BUNDLE BRANCH BLOCK LEFT VENTRICULAR HYPERTROPHY BORDERLINE PROLONGED QT INTERVAL No previous ECG available for comparison Electronically Signed On 10-19-2019 8:49:06 EST by Alessia Tapia [facility] Work Phone: [phone] HEPATITIS B SURFACE ANTIGENO rdered By: Jeana Pedraza on 10-19-2019 Hepatitis B Surface Ag Not detected Not-D etected NA [facility] Work Phone: [phone] HIV ScreenOrdered By: Adan Encarnacion on 10-19-2019 HIV 1+2 [id number] AG, EIA Non-Reactive Nonreactive NA [facility] Work Phone: [phone] Comment on above: Results obtained usi mila [...] # 0.1 10*3/uL 0 - 0.2 10*3/uL [facility] Work Phone: [phone] Absolute Neut # 11.3 10*3/uL High 1.8 - 7 10*3/uL [facility] Work Phone: Basophils/100 WBC (Bld) 0.6 % 0 - 2 % [facility] Work Phone: [phone] Eosinophils (Bld) [#/Vol] 0.2 10*3/uL 0 - 0.5 10*3/uL [facility] Work Phone: [phone] 22 Eosinophils/100 WBC (Bld) 1.2 % 1 - 6 % [facility] Work Phone: 22 Erythrocyte distribution width (RBC) [Ratio] 13.4 % 11.5 - 14.5 % [facility] Work Phone: 1 22 Granulocytes/100 WBC (Bld) 80.5 % High 40 - 80 % [facility] Work Phone: Hematocrit (Bld) [Volume fraction] 23.2 % Low 40 - 52 % [facility] Work Phone: 1 Hemoglobin (Bld) [Mass/Vol] 7.8 g/dL Low 13 - 18 g/dL [facility] Work Phone: 1 22 Interpretation and review of laboratory results Abnormal [facility] Work Phone: Lymphocytes (Bld) [#/Vol] 1.4 10*3/uL 1 - 4.3 10*3/uL [facility] Work Phone: 1 22 Lymphocytes/100 WBC (Bld) 9.8 % Low 20 - 40 % [facility] Work Phone: 22 MCH (RBC) [Entitic mass] 29.4 pg 26 - 34 pg [facility] Work Phone: 22 MCHC 33.6 % 32 - 36 % [facility] Work Phone: 1 MCV (RBC) [Entitic vol] 87.4 fL 80 - 98 fL [facility] Work Phone: 22 Monocytes (Bld) [#/Vol] 1.1 10*3/uL High 0 - 0.8 10*3/uL [facility] Work Phone: 22 Monocytes/100 WBC (Bld) 7.9 % 2 - 10 % [facility] Work Phone: 22 Platelet mean volume (Bld) [Entitic vol] 7.6 fL 7.4 - 10.4 fL [facility] Work Phone: 22 Platelets (Bld) [#/Vol] 293 10*3/uL 140 - 440 10*3/uL [facility] Work Phone: 22 RBC (Bld) [#/Vol] 2.66 10*6/uL Low 4.4 - 5.9 10*6/uL [facility] Work Phone: WBC (Bld) [#/Vol] 14.1 10*3/uL High 3.6 - 10.7 10*3/uL [facility] Work Phone: 1 Test Performed by [employer], [address] [place], [place] [address] [facility] Work Phone: Hepatitis C AntibodyOrdered By: Jeana Pedraza on 10-19-2019 Hepatitis C Ab Not detected Not-Detected NA [facility] Work Phone: Comment on above: Patients with DETECT ED Hepatitis C Ab results should have a new specimen submitted for supplemental testing with a Hepatitis C Quantitative RNA assay (viral load), if clinically indicated. MagnesiumOrdered By: Callie shaw on 10-19-2019 Magnesium [Mass/Vol] 2.1 mg/dL 1.6 - 2 .3 mg/dL [facility] Work Phone: Test Performed by [employer], [address] [place] [address] [facility] Work Phone: No Panel InformationOrdered By: Brett Encarnacion on 10-19-2019 Test Performed by [employer], [address] [place] [address] [facility] Work Phone: No Panel InformationOrdered By: Jeana Pedraza on 10-19-2019 Test Performed by [employer], [address] [place], [place] [address] [facility] Work Phone: PROCALCITONINOrdered By: Eldon Encarnacion on 10-19-2019 Interpretation See Below [facility] Work Phone: Comment on above: PCT <0.50 = Low risk of severe sepsis and/or septic shock. PCT >2.00 = High risk of severe sepsis and/or septic shock. Interpretation and review of laboratory results Abnormal [facility] Work Phone: Procalcitonin 0.74 ng/mL Abnormal <0.10 [facility] Work Phone: PhosphorusOrdered By: Callie Nieves on 10-19-2019 Interpretation and review of laboratory results Abnormal [facility] Work Phone: 1 Phosphate [Mass/Vol] 14.8 mg/dL High 2.5 - 4 .5 mg/dL [facility] Work Phone: 1 Test Performed by [employer], [address] [place], [place] [address] [facility] Work Phone: TYPE AND SCREENOrdered By: Cecil Nieves on 10-19-2019 ABO Grouping O [facility] Work Phone: 1 Rh Type Negative [facility] Work Phone: Comment on above: Test Performed by [facility], [address] [place] [address] Test Performed by [employer] [facility], [address] [place], [place] [address] [facility] Work Phone: TroponinOrdered By: Callie garcia on 10-19-2019 Interpretation and review of laboratory results Abnormal [facility] Work Phone: 1 Troponin I.cardiac [Mass/Vol] 0.075 ng/mL High 0 - 0.034 ng/mL [facility] Work Phone: 1 Comment on above: . Test Performed by [employer], [address] [place], [place] [address] [facility] Work Phone: 1 UrinalysisOrdered By: Callie Nieves on 10-19-2019 AMORPHOUS CRYSTAL Few Negative /[HPF] [facility] Work Phone: Appearance (U) Clear Clear NA [facility] Work Phone: Bacteria, UA Few Negative /[HPF] [facility] Work Phone: 1 Bilirubin Urine Negative Negative mg/dL [facility] Work Phone: Color (U) Colorless Lt. Yellow NA [facility] Work Phone: Glucose, Ur 200 mg/dL Normal (<70) [facility] Work Phone: 1 Ketones Ql (U) Negative Negative mg/dL [facility] Work Phone: [phone] LEUKOCYTES, UA Negative Negative Juliana/uL [facility] Work Phone: [phone] Mucous Threads Few Negative /[LPF] [facility] Work Phone: [phone] Nitrite, Urine Negative Negative NA [facility] Work Phone: [phone] Occult Blood,Urine 0.2 mg/dL Negative [facility] Work Phone: [phone] pH (U) 6.0 [pH] [facility] Work Phone: [phone] Protein (U) [Mass/Vol] 200 mg/dL Negative [facility] [employer] Work Phone: [phone] RBC, UA 6-10 0 - 2 /[HPF] [facility] Work Phone: [phone] Specific [place], Urine 1.009 S [facility] Work Phone: [phone] Epithel, UA 0-2 3 - 5 /[HPF] [facility] Work Phone: [phone] Urobilinogen, Urine Normal Normal ( 0-1) mg/dL [facility] Work Phone: [phone] WBC, UA 6-10 0 - 5 /[HPF] [facility] Work Phone: [phone] Test Performed by [employer], [address] [place] [id number] [place] [address] Work Phone: [phone] XR CHEST PORTABLEOrdered By: Brett Encarnacion on 10-19-2019 Patient Name: GLENN SNYDER ---Diagnostic Radiology--- Exam Date/Time 10/19/2019 12:11:06 EST Exam CR Chest Portable Ordering Physician MD ENCARNACION MATTHEW Accession Number [id number] CPT4 Codes 12548 () Reason For Exam line placement/vascath Report [...] Transcribed Date and Time: 10/19/2019 12:56 [facility] Work Phone: Mike, [facility] Incoming Radiology Results From Counts Include [facility] - 10/19/2019 12:57 PM EST Patient Name: GLENN SNYDER ---Diagnostic Radiology--- Exam Date/Time 10/19/2019 12:11:06 EST Exam CR Chest Portable Ordering Physician MD ENCARNACION MATTHEW Accession Number [id number] CPT4 Codes 54838 () Reason For Exam line placement/vascath Report [...] Transcribed Date and Time: 10/19/2019 12:56 [facility] Work Phone: Vital Signs Date Time Vital Sign Value Performing Clinician Faci lity 04-17-2025 09:36-0400 Body height 177.8 cm Keiry Solares MD Work Phone: [employer] [facility] 04-17-2025 09:36-0400 Body mass index (BMI) [Ratio] 21.81 kg/m2 Keiry Solares MD Work Phone: [employer] 04-17-2025 09:36-0400 Body temperature 98.01 [degF] Keiry Solares MD Work Phone: [facility] 04-17-2025 09:36-0400 Body weight 68.95 kg Keiry Solares MD Work Phone: [facility] 04-17-2025 09:36-0400 Diastolic blood pressure 88 mm[Hg] Keiry Solares MD Work Phone: [facility] 04-17-2025 09:36-0400 Respiratory rate 18 /min Keiry Solares MD Work Phone: [facility] 04-17-2025 09:36-0400 Systolic blood pressure 113 mm[Hg] Keiry Solares MD Work Phone: [facility] 04-17-2025 09:29-0400 Heart rate 81 /min Keiry Solares MD Work Phone: [facility] 04-17-2025 09:29-0400 SaO2% (BldA) [Mass fraction] 100 % Keiry Solares MD Work Phone: [facility] 04-09-2025 15:00-0400 Body temperature 98.29 [degF] Leilani Aba Work Phone: [facility] 04-09-2025 15:00-0400 Diastolic blood pressure 64 mm[Hg] Leilani Aba Work Phone: [facility] 04-09-2025 15:00-0400 Heart rate 90 /min Leilani Aba Work Phone: [facility] 04-09-2025 15:00-0400 Respiratory rate 16 /min Leilani Aba Work Phone: [facility] 04-09-2025 15:00-0400 SaO2% (BldA) [Mass fraction] 98 % Leilani Aba Work Phone: [facility] 04-09-2025 15:00-0400 Systolic blood pressure 117 mm[Hg] Leilani Aba Work Phone: [facility] 04-09-2025 11:58-0400 Body height 177.8 cm Leilani Han Work Phone: [facility] 04-09-2025 11:58-0400 Body mass index (BMI) [Ratio] 21.52 kg/m2 Leilani Aba Work Phone: [facility] 04-09-2025 11:58-0400 Body weight 68.04 kg Leilani Aba Work Phone: [facility] 04-05-2025 20:00-0400 Diastolic blood pressure 89 mm[Hg] Dieter Villegas MD Work Phone: [facility] 04-05-2025 20:00-0400 Heart rate 91 /min Dieter Villegas MD Work Phone: [facility] 04-05-2025 20:00-0400 Respiratory rate 16 /min Dieter Villegas MD Work Phone: [facility] 04-05-2025 20:00-0400 SaO2% (BldA) [Mass fraction] 97 % Dieter Villegas MD Work Phone: [facility] 04-05-2025 20:00-0400 Systolic blood pressure 148 mm[Hg] Dieter Villegas MD Work Phone: [facility] 04-05-2025 17:15-0400 Body temperature 97.9 [degF] Dieter Villegas MD Work Phone: [facility] 04-05-2025 10:15-0400 Body height 177.8 cm Dieter Villegas MD Work Phone: [facility] 04-05-2025 10:15-0400 Body mass index (BMI) [Ratio] 21.09 kg/m2 Dieter Villegas MD Work Phone: [facility] 04-05-2025 10:15-0400 Body weight 66.68 kg Dieter Villegas MD Work Phone: [facility] 03-21-2025 16:02-0400 Body temperature 98.29 [degF] Keiry Solares MD Work Phone: [facility] 03-21-2025 16:02-0400 Diastolic blood pressure 85 mm[Hg] Keiry Solares MD Work Phone: [facility] 03-21-2025 16:02-0400 Heart rate 71 /min Keiry Solares MD Work Phone: [facility] 03-21-2025 16:02-0400 Respiratory rate 18 /min Keiry Solares MD Work Phone: [facility] 03-21-2025 16:02-0400 SaO2% (BldA) [Mass fraction] 94 % Keiry Solares MD Work Phone: [facility] 03-21-2025 16:02-0400 Systolic blood pressure 147 mm[Hg] Keiry Solares MD Work Phone: [facility] 03-21-2025 03:15-0400 Body mass index (BMI) [Ratio] 22.24 kg/m2 Keiry Solares MD Work Phone: [facility] 03-21-2025 03:15-0400 Body weight 70.31 kg Keiry Solares MD Work Phone: [facility] 03-14-2025 16:17-0400 Body height 177.8 cm Keiry Solares MD Work Phone: [facility] 03-05-2025 14:03-0400 Body temperature 97 [degF] Mejgon Cuca DO Work Phone: [facility] 03-05-2025 14:03-0400 Diastolic blood pressure 83 mm[Hg] Mejgon Cuca DO Work Phone: [facility] 03-05-2025 14:03-0400 Heart rate 78 /min Mejgon Cuca DO Work Phone: [facility] 03-05-2025 14:03-0400 Respiratory rate 16 /min Mejgon Cuca DO Work Phone: [facility] 03-05-2025 14:03-0400 SaO2% (BldA) [Mass fraction] 100 % Mejgon Cuca DO Work Phone: [employer] [facility] 03-05-2025 14:03-0400 Systolic blood pressure 137 mm[Hg] Palak Thurman DO Work Phone: [employer] [facility] 02-23-2025 14:13-0400 Body height 177.8 cm Palak Thurman DO Work Phone: [employer] 02-23-2025 14:13-0400 Body mass index (BMI) [Ratio] 19.23 kg/m2 Palak Thurman DO Work Phone: [employer] 02-23-2025 14:13-0400 Body weight 60.78 kg Palak Thurman DO Work Phone: [employer] [facility] 02-14-2025 10:30-0400 Body height 177.8 cm Mikala Day PA-C Work Phone: [employer] 02-14-2025 10:30-0400 Body mass index (BMI) [Ratio] 18.65 kg/m2 Mikala Day PA-C Work Phone: [employer] 02-14-2025 10:30-0400 Body temperature 96.8 [degF] Mikala Day PA-C Work Phone: [employer] 02-14-2025 10:30-0400 Body weight 58.97 kg Mikala Day PA-C Work Phone: [employer] 02-14-2025 10:30-0400 Diastolic blood pressure 72 mm[Hg] Mikala Day PA-C Work Phone: [employer] 02-14-2025 10:30-0400 Heart rate 89 /min Mikala Day PA-C Work Phone: [employer] 02-14-2025 10:30-0400 SaO2% (BldA) [Mass fraction] 98 % Mikala Day PA-C Work Phone: [employer] 02-14-2025 10:30-0400 Systolic blood pressure 138 mm[Hg] Mikala Day PA-C Work Phone: [employer] 02-01-2025 15:02-0400 Body temperature 96.69 [degF] Lazaro Rojo MD Work Phone: [facility] 02-01-2025 15:02-0400 Diastolic blood pressure 60 mm[Hg] Lazaro Rojo MD Work Phone: [facility] 02-01-2025 15:02-0400 Heart rate 81 /min Lazaro Rojo MD Work Phone: [facility] 02-01-2025 15:02-0400 Respiratory rate 16 /min Lazaro Rojo MD Work Phone: [facility] 02-01-2025 15:02-0400 SaO2% (BldA) [Mass fraction] 98 % Lazaro Rojo MD Work Phone: [facility] 02-01-2025 15:02-0400 Systolic blood pressure 118 mm[Hg] Lazaro Rojo MD Work Phone: [facility] 02-01-2025 05:36-0400 Body mass index (BMI) [Ratio] 14.58 kg/m2 Lazaro Rojo MD Work Phone: [facility] 02-01-2025 05:36-0400 Body weight 46.1 kg Lazaro Rojo MD Work Phone: [facility] 01-30-2025 10:02-0400 Body height 177.8 cm Lazaro Rojo MD Work Phone: [facility] 08-28-2024 15:33-0500 Body height 177.8 cm Jr Shah MD Work Phone: [employer] [facility] 08-28-2024 15:33-0500 Body mass index (BMI) [Ratio] 29.56 kg/m2 Jr Shah MD Work Phone: [employer] [facility] 08-28-2024 15:33-0500 Body weight 93.44 kg Jr Shah MD Work Phone: [employer] [facility] 08-28-2024 15:33-0500 Diastolic blood pressure 80 mm[Hg] Jr Shah MD Work Phone: [employer] [facility] 08-28-2024 15:33-0500 Heart rate 75 /min Jr Shah MD Work Phone: [employer] [facility] 08-28-2024 15:33-0500 Systolic blood pressure 130 mm[Hg] Jr Shah MD Work Phone: [facility] 11-12-2023 14:16-0500 Diastolic blood pressure 84 mm[Hg] Quiana Contreras STUDENT SERVICES COUNSELOR - SECURITY VEHICLE PATROL OFFICER Work Phone: [employer] [facility] 11-12-2023 14:16-0500 Systolic blood pressure 138 mm[Hg] Quiana Contreras STUDENT SERVICES COUNSELOR - SECURITY VEHICLE PATROL OFFICER Work Phone: [facility] 11-12-2023 13:41-0500 Body height 177.8 cm Quiana Contreras STUDENT SERVICES COUNSELOR - SECURITY VEHIC[employer] PATROL OFFICER Work Phone: [facility] 11-12-2023 13:41-0500 Body mass index (BMI) [Ratio] 29.84 kg/m2 Quiana Contreras STUDENT SERVICES COUNSELOR - SECURITY VEHIC[employer] PATROL OFFICER Work Phone: [facility] 11-12-2023 13:41-0500 Body weight 94.35 kg Quiana Contreras STUDENT SERVICES COUNSELOR - SECURITY VEHICLE PATROL OFFICER Work Phone: [facility] 11-12-2023 13:41-0500 Heart rate 85 /min Quiana Contreras STUDENT SERVICES COUNSELOR - SECURITY VEHICLE PATROL OFFICER Work Phone: [facility] 08-17-2023 13:12-0500 Diastolic blood pressure 67 mm[Hg] Dangelo Horne DO Work Phone: [employer] [facility] 08-17-2023 13:12-0500 Heart rate 84 /min Dangelo Landworth DO Work Phone: [employer] [facility] 08-17-2023 13:12-0500 Respiratory rate 18 /min Dangelo Horne DO Work Phone: [employer] [facility] 08-17-2023 13:12-0500 SaO2% (BldA) [Mass fraction] 98 % Dangelo Horne DO Work Phone: [facility] 08-17-2023 13:12-0500 Systolic blood pressure 94 mm[Hg] Dangelo Horne DO Work Phone: [employer] [facility] 08-17-2023 09:13-0500 Body height 177.8 cm Dangelo Horne DO Work Phone: [employer] [facility] 08-17-2023 09:13-0500 Body mass index (BMI) [Ratio] 28.7 kg/m2 Dangelo Horne DO Work Phone: [employer] [facility] 08-17-2023 09:13-0500 Body weight 90.72 kg Dangelo Horne DO Work Phone: [facility] 08-17-2023 08:50-0500 Body temperature 99 [degF] Dangelo Horne DO Work Phone: [facility] 05-01-2023 20:36-0400 Diastolic blood pressure 85 mm[Hg] Jese Frank MD Work Phone: [employer] [facility] 05-01-2023 20:36-0400 Heart rate 74 /min Jese Frank MD Work Phone: [employer] [facility] 05-01-2023 20:36-0400 Respiratory rate 20 /min Jese Frank MD Work Phone: [employer] [facility] 05-01-2023 20:36-0400 SaO2% (BldA) [Mass fraction] 95 % Jese Frank MD Work Phone: [employer] [facility] 05-01-2023 20:36-0400 Systolic blood pressure 135 mm[Hg] Jese Frank MD Work Phone: [employer] 05-01-2023 20:08-0400 Body height 177.8 cm Jese Frank MD Work Phone: [employer] 05-01-2023 20:08-0400 Body mass index (BMI) [Ratio] 28.7 kg/m2 Jese Frank MD Work Phone: [facility] 05-01-2023 20:08-0400 Body temperature 98.2 [degF] Jese Frank MD Work Phone: [facility] 05-01-2023 20:08-0400 Body weight 90.72 kg Jese Frank MD Work Phone: [facility] 12-25-2021 15:50-0400 Body height 177.8 cm Rudy Painter MD Work Phone: [facility] 12-25-2021 15:50-0400 Body weight 99.79 kg Rudy Painter MD Work Phone: [facility] 12-25-2021 15:50-0400 Diastolic blood pressure 72 mm[Hg] Rudy Painter MD Work Phone: [facility] 12-25-2021 15:50-0400 Heart rate 70 /min Rudy Painter MD Work Phone: [facility] 12-25-2021 15:50-0400 Systolic blood pressure 130 mm[Hg] Rudy Painter MD Work Phone: [facility] 09-15-2021 11:20-0500 Body temperature 97.59 [degF] Cindy Patel MD Work Phone: [facility] 09-15-2021 11:20-0500 Diastolic blood pressure 83 mm[Hg] Cindy Patel MD Work Phone: [facility] 09-15-2021 11:20-0500 Heart rate 85 /min Cindy Patel MD Work Phone: [facility] 09-15-2021 11:20-0500 Respiratory rate 20 /min Cindy Patel MD Work Phone: [facility] 09-15-2021 11:20-0500 SaO2% (BldA) [Mass fraction] 98 % Cidny Patel MD Work Phone: [facility] 09-15-2021 11:20-0500 Systolic blood pressure 144 mm[Hg] Cindy Patel MD Work Phone: [facility] 09-15-2021 09:19-0500 Body height 177.8 cm Cindy Patel MD Work Phone: [facility] 09-15-2021 09:19-0500 Body mass index (BMI) [Ratio] 30.05 kg/m2 Cindy Paetl MD Work Phone: [facility] 09-15-2021 09:19-0500 Body weight 94.98 kg Cindy Patel MD Work Phone: [facility] 10-27-2019 20:02-0500 Body temperature 97.2 [degF] [employer] Work Phone: [facility] Work Phone: 10-27-2019 20:02-0500 Diastolic blood pressure 77 mm[Hg] Callie [employer] DO Work Phone: [facility] Work Phone: 10-27-2019 20:02-0500 Heart rate 107 /min [employer] DO Work Phone: [facility] Work Phone: 10-27-2019 20:02-0500 Respiratory rate 16 /min Callie Tribzi Work Phone: [facility] Work Phone: 10-27-2019 20:02-0500 SaO2% (BldA) [Mass fraction] 96 % [employer] DO Work Phone: [facility] Work Phone: 10-27-2019 20:02-0500 Systolic blood pressure 112 mm[Hg] [employer] DO Work Phone: [facility] Work Phone: 10-27-2019 14:10-0500 Body mass index (BMI) [Ratio] 27.08 kg/m2 [employer] Work Phone: [facility] Work Phone: 10-27-2019 14:10-0500 Body weight 85.6 kg Callie Nieves DO Work Phone: [facility] Work Phone: 10-19-2019 12:45-0500 Body height 177.8 cm Callie [facility]ieves DO [facility] Work [facility]: Encounters Encounter Date Encounter Type Care Provider Facility Start: [facility]19[facility]20[facility] [facility] Start: 04-18-2025 ambulatory Jayesh Clarahoward ALBA Faci lity:[facility] Start: 04-17-2025 End: 04-17-2025 Emergency department patient visit Keiry Solares MD Work Phone: [facility] ED Comment on above: Supratherapeutic INR (Primary Dx); Necrosis (HCC) Start: 04-17-2025 ambulatory [facility] PARTH Facility:[facility] Start: 04-16-2025 ambulatory [facility] GBS Facility:[facility] Start: 04-12-2025 End: 04-12-2025 Subsequent hospital visit by physician [facility] Exam Room [address] Comment on above: Hemoptysis Start: 04-12-2025 End: 04-12-2025 [facility] Start: 04-11-2025 End: 04-11-2025 Telephone encounter Piedad Genao DPM Work Phone: [facility] Mitzy White Comment on above: Appointment Start: 04-09-2025 End: 04-09-2025 [facility] Comment on above: ESRD on hemodialysis (CMS/HCC) (HCC) (Primary Dx); Contusion of dorsum of right hand Start: 04-09-2025 ambulatory [facility] jena GBS Facility:[facility] Start: 04-05-2025 End: 04-05-2025 Telephone encounter Sophia Forrester CNP Work Phone: [facility] Comment on above: Cancelled Appointmen t Start: 04-05-2025 End: 04-05-2025 Emergency department patient visit Dieter Villegas MD Work Phone: [facility] ED Comment on above: Tachycardia (Primary Dx); Dialysis patient (HCC) Start: 04-05-2025 ambulatory [facility] OLS Facility:[facility] Start: 04-02-2025 ambulatory [facility] Facility:[facility] Start: 03-29-2025 ambulatory [facility] Facility:[facility] Start: 03-26-2025 End: 03-28-2025 Telephone encounter Sophia Forrester CNP Work Phone: [facility] Comment on above: Appointment Start: 03-26-2025 ambulatory Jayesh ALBA Faci lity:[facility] Start: 03-22-2025 ambulatory [facility] OLS Facility:[facility] Start: 03-22-2025 Registered Referred Kayley ortiz MD -[employer] 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) Start: 03-12-2025 ambulatory Jayesh ALBA Faci lity:[facility] Start: 03-12-2025 Registered Referred Jayesh Stubbs [employer] Start: 03-09-2025 ambulatory Jayesh ALBA Faci lity:[facility] Start: 03-09-2025 Registered Referred Jayesh Stubbs [employer] Start: 03-08-2025 End: 03-08-2025 Orders Only Christelle Eckert RN [facility] Comment on above: Tracheostomy depende nce (HCC) (Primary Dx); Tracheostomy complication, unspecified complication type (HCC); Acute respiratory failure with hypoxia (HCC) [J96.01] Start: 03-08-2025 Registered Referred Kayley ortiz MD -[employer] Start: 02-23-2025 End: 02-23-2025 Telephone encounter Elly Jett MD Work Phone: [facility] Critical Care Comment on above: Appointment Start: 02-21-2025 End: 02-25-2025 Telephone encounter Hussain Quintana MD Work Phone: [facility] [place] Comment on above: Other Start: 02-20-2025 End: 03-05-2025 Evaluation and management of inpatient Palak Thurman DO Work Phone: [facility] Trauma Neuro Progressive Care Unit PCU 3W Start: 02-20-2025 End: 02-20-2025 ambulatory Kayley Melendrez MD [facility] Work Phone: Start: 02-20-2025 End: 02-20-2025 Departed Referred Kayley Melendrez MD -[employer] Start: 02-20-2025 Registered Referred Kayley ortiz MD -[employer] Start: 02-20-2025 End: 02-20-2025 ambulatory Kayley ALBA Facility:[facility] Start: 02-15-2025 End: 02-15-2025 ambulatory Kayley Melendrez MD [facility] Work Phone: Start: 02-15-2025 End: 02-15-2025 Departed Referred Kayley Melendrez MD -[employer] Start: 02-15-2025 Registered Referred Kayley ortiz MD -[employer] Start: 02-14-2025 End: 02-14-2025 Office outpatient visit 25 minutes Mikala Day PA-C Work Phone: 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 Start: 02-14-2025 End: 02-15-2025 ambulatory [facility] Start: 02-13-2025 ambulatory Kayley ALBA Facility:[facility] Start: 02-13-2025 Registered Referred Kayley [employer] Start: 02-12-2025 End: 02-12-2025 ambulatory Kayley [facility]er[facility]ick [employer] Start: 02-12-2025 End: 02-12-2025 Departed Referred Kayley [employer] Start: 02-12-2025 Registered Referred Kayley [employer] Start: 02-12-2025 End: 02-12-2025 ambulatory Kayley ALBA Facility:[facility] Start: 02-08-2025 End: 02-08-2025 ambulatory Kayley [facility]er[facility]ick [employer] Start: 02-08-2025 End: 02-08-2025 Departed Referred Kayley [employer]er[employer]ick [employer] Start: 02-08-2025 Registered Referred Kayley [employer] Start: 02-07-2025 End: 02-08-2025 ambulatory Kayley ALBA [facility] Work Phone: Start: 02-07-2025 End: 02-07-2025 Departed Referred Jayesh Shen [employer] Start: 02-07-2025 Registered Referred Jayesh [employer] Start: 02-07-2025 End: 02-07-2025 ambulatory Jayesh ALBA Facility:[facility] Start: 02-05-2025 End: 02-05-2025 ambulatory Kayley Melendrez MD [facility] Work Phone: Start: 02-05-2025 End: 02-05-2025 Departed Referred Kayley Melendrez MD -[facility] Start: 02-05-2025 End: 02-05-2025 ambulatory Kayley ALBA Facility:[facility] Start: 02-02-2025 End: 02-02-2025 Anticoagulant drug monitoring Adalberto SanchezD [facility] Pharmacy Comment on above: S/P AVR (Primary Dx) Start: 01-29-2025 End: 02-05-2025 Telephone encounter Adina Montenegro MA [facility] Anticoagulatio n Management Service Comment on above: Anticoagulation Start: 01-19-2025 End: 02-01-2025 Evaluation and management of inpatient Lazaro Rojo MD Work Phone: [facility] Cardiac Vascular Progressive Care Unit PCC 1C Start: 01-18-2025 End: 01-18-2025 ambulatory Jefferson Nathan MD Work Phone: [facility] Pulmonary and Sleep Medicine [facility] Comment on above: Acute respiratory fa ilure with hypoxia (HCC) [J96.01] (Primary Dx); RSV (acute bronchiolitis due to respiratory syncytial virus); Tracheostomy dependence (HCC); Leg DVT (deep venous thromboembolism), acute, left (HCC); Pulmonary embolism, unspecified chronicity, unspecified pulmonary embolism type, unspecified whether acute cor pulmonale present (HCC); S/P AVR Start: 01-17-2025 End: 01-17-2025 ambulatory Jefferson Nathan MD Work Phone: [facility] Sleep Medicine [facility] Comment on above: RSV (acute bronchiol [...] (Primary Dx); ESRD on hemodialysis (CMS/HCC) (HCC); 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 (current) use of antibiotics; Decubitus ulcer of sacral region, unstageable (HCC); Sacral osteomyelitis (CMS/HCC) (HCC) Start: 01-16-2025 End: 01-16-2025 ambulatory Jefferson Nathan MD Work Phone: [facility] Pulmonary [facility] Sleep Medicine [facility] Comment on above: RSV (acute bronchiol itis due to respiratory syncytial virus) (Primary Dx); Tracheostomy dependence (HCC); Pneumonia of both lungs due to methicillin susceptible Staphylococcus aureus (MSSA), unspecified part of lung (HCC); Acute respiratory failure with hypoxia ([facility]) [J96.01]; Nonrheumatic aortic valve stenosis; Pulmonary embolism, unspecified chronicity, unspecified pulmonary embolism type, unspecified whether acute cor pulmonale present (HCC) Start: 01-15-2025 End: 01-15-2025 ambulatory Jefferson Nathan MD Work Phone: [facility] Sleep Medicine [facility] Comment on above: RSV (acute bronchiol [...] 01-14-2025 ambulatory Hany Berrios MD Work Phone: [facility] Pul[facility] Sleep Medicine 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]; Pulmonary embolism, other, unspecified chronicity, unspecified whether acute cor pulmonale present (HCC) Start: 01-12-2025 End: 01-12-2025 ambulatory Mikala Day PA-C Work Phone: [facility] Infectious Dis Comment on above: Tracheostomy depende nce (HCC) (Primary Dx); Sacral osteomyelitis (CMS/HCC) (HCC); Leukocytosis, unspecified type; Decubitus ulcer of sacral region, unstageable (HCC); FPC (current) use of antibiotics Acute respiratory fa ilure with hypoxia (HCC) [J96.01] (Primary Dx); 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 Sleep Medicine 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 [place] Comment on above: Pneumonia of both marleny ngs due to methicillin susceptible Staphylococcus aureus (MSSA), unspecified part of lung (HCC) (Primary Dx); Acute hypoxic respiratory failure (HCC); Tracheostomy dependence (HCC); ESRD on hemodialysis (CMS/HCC) (HCC); Sacral osteomyelitis (CMS/HCC) (HCC); Decubitus ulcer of sacral region, unstageable (HCC) Start: 01-05-2025 End: 01-05-2025 Patient encounter procedure Chandrika Allen APRN - [employer] OFFICER Work Phone: 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 [place] Comment on above: Tracheostomy depende nce (HCC) (Primary Dx); Pneumonia of both lungs due to methicillin susceptible Staphylococcus aureus (MSSA), unspecified part of lung (HCC); Acute hypoxic respiratory failure (HCC); Peritonitis due to fungus (HCC); ESRD on hemodialysis (CMS/HCC) (HCC); Sacral osteomyelitis (CMS/HCC) (HCC); Leukocytosis, unspecified type; History of abdominal surgery Start: 01-04-2025 End: 01-04-2025 ambulatory Sydni Husain APRN - [employer] Work Phone: [facility] [place] Start: 01-04-2025 End: 01-04-2025 [facility] hospital care/day 25 minutes Angeles Blackburn DO Work Phone: [facility] [place] Comment on above: 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] (Primary Dx); Acute respiratory failure with hypoxia ([facility]) [J96.01] Start: 01-03-2025 End: 01-03-2025 ambulatory Josephine Cash STUDENT SERVICES COUNSELOR [place] Work Phone: [facility] [place] Comment on above: Sacral osteomyelitis (CMS/HCC) (HCC) (Primary Dx); Decubitus ulcer of sacral region, unstageable (HCC); Pneumonia of both lungs due to methicillin susceptible Staphylococcus aureus (MSSA), unspecified part of lung (HCC); Leukocytosis, unspecified type; ESRD on hemodialysis (CMS/[facility]) ([facility]); S/P AVR Start: 01-03-2025 End: 01-03-2025 [facility] hospital care/day 25 minutes Angeles Blackburn DO Work Phone: [facility] [place] Comment on above: 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] (Primary Dx); Acute respiratory failure with hypoxia ([facility]) [J96.01] Start: 01-02-2025 End: 01-02-2025 ambulatory Josephine Cash STUDENT SERVICES COUNSELOR [place] Work Phone: [facility] [place] Comment on above: Leukocytosis, unspec ified type (Primary Dx); Pneumonia of both lungs due to methicillin susceptible Staphylococcus aureus (MSSA), unspecified part of lung (HCC); Acute hypoxic respiratory failure (HCC); Decubitus ulcer of sacral region, unstageable (HCC); ESRD on hemodialysis (CMS/HCC) (HCC); S/P AVR Start: 01-02-2025 End: 01-02-2025 [facility] hospital care/day 25 minutes Angeles Bere DO Work Phone: [facility]od[facility] [place] Comment on above: 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] (Primary Dx); Acute respiratory failure with hypoxia (HCC) [J96.01] Start: 01-01-2025 End: 01-01-2025 ambulatory Ochoa Guido MD Work Phone: [facility] Cardiology [facility] Comment on above: Persistent atrial fi brillation (HCC) (Primary Dx) Leukocytosis, unspec ified type (Primary Dx); Pneumonia of both lungs due to methicillin susceptible Staphylococcus aureus (MSSA), unspecified part of lung (HCC); Acute hypoxic respiratory failure (HCC); Tracheostomy dependence (HCC); Decubitus ulcer of sacral region, unstageable (HCC); ESRD on hemodialysis (CMS/HCC) (HCC); S/P AVR Start: 01-01-2025 End: 01-01-2025 [facility] hospital care/day 25 minutes Angeles Bere DO Work Phone: [facility] [place] Comment on above: 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] (Primary Dx); Acute respiratory failure with hypoxia (HCC) [J96.01] Start: 12-30-2024 End: 12-30-2024 ambulatory Josephine Cash APRN - [employer] OFFICER Work Phone: [facility] Infectious Dis Comment on above: Leukocytosis, unspec ified type (Primary Dx); Acute hypoxic respiratory failure (HCC); Tracheostomy dependence (HCC); S/P AVR; ESRD on hemodialysis (CMS/HCC) (HCC); Decubitus ulcer of sacral region, unstageable (HCC) Start: 12-28-2024 End: 12-28-2024 ambulatory Mercedes Hinton STUDENT SERVICES COUNSELOR - SECURITY [employer]ICLE PATROL OFFICER Work Phone: [facility] Start: 12-28-2024 End: 12-28-2024 Patient encounter procedure Mercedes Hinton STUDENT SERVICES COUNSELOR - SECUR[employer]LE PATROL OFFICER Work Phone: [facility] Comment on above: Acute respiratory fa ilure with hypoxia (HCC) [J96.01] (Primary Dx); 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]; Tracheostomy care (HCC) [Z43.0]; History of pulmonary embolus (PE) [Z86.711] Start: 12-27-2024 End: 12-27-2024 ambulatory Mercedes Hinton STUDENT SERVICES COUNSELOR - [employer]ROL OFFICER Work Phone: [facility] Start: 12-27-2024 End: 12-27-2024 Patient encounter procedure Mercedes Hinton STUDENT SERVICES COUNSELOR - SEC[employer] PATROL OFFICER Work Phone: [facility] Comment on above: Acute respiratory fa ilure with hypoxia (HCC) [J96.01] (Primary Dx); 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]; Tracheostomy care (HCC) [Z43.0]; History of pulmonary embolus (PE) [Z86.711] Start: 12-26-2024 End: 12-26-2024 ambulatory Mercedes Hinton STUDENT SERVICES COUNSELOR - [employer] OFFICER Work Phone: [facility] Start: 12-26-2024 End: 12-26-2024 Patient encounter procedure Mercedes Hinton STUDENT SERVICES COUNSELOR - SECUR[employer]ROL OFFICER Work Phone: [facility] Comment on above: Acute respiratory fa ilure with hypoxia (HCC) [J96.01] (Primary Dx); 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 Start: 12-22-2024 End: 12-22-2024 Patient encounter procedure Chandrika Castillo Alejandro STUDENT SERVICES COUNSELOR - SECURITY [employer]HICLE PATROL OFFICER Work Phone: [facility] Comment on above: 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] (Primary Dx); Acute respiratory failure with hypoxia (HCC) [J96.01]; LRTI (lower respiratory tract infection) [J22] Start: 12-21-2024 End: 12-21-2024 ambulatory Chandrika Castillo Alejandro STUDENT SERVICES COUNSELOR - SECURITY [employer]LE [employer]ROL OFFICER Work Phone: [facility] Lung [facility] Start: 12-21-2024 End: 12-21-2024 Patient encounter procedure Chandrika BorjaRomulo Allen STUDENT SERVICES COUNSELOR - SECURITY VEHICLE PATROL OFFICER Work Phone: [facility] Comment on above: 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] (Primary Dx); Acute respiratory failure with hypoxia (HCC) [J96.01]; LRTI (lower respiratory tract infection) [J22] Start: 12-20-2024 End: 12-20-2024 ambulatory Chandrika BorjaRomulo Allen STUDENT SERVICES COUNSELOR - SECURITY VEHICLE PATROL OFFICER Work Phone: [facility] Start: 12-20-2024 End: 12-20-2024 Patient encounter procedure Chandrika BorjaRomulo Allen STUDENT SERVICES COUNSELOR - SECURITY VEHICLE PATROL OFFICER Work Phone: [facility] Comment on above: 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] (Primary Dx); Acute respiratory failure with hypoxia (HCC) [J96.01]; LRTI (lower respiratory tract infection) [J22] Start: 12-19-2024 End: 12-19-2024 ambulatory Chandrika BorjaRomulo Allen STUDENT SERVICES COUNSELOR - SECURITY VEHICLE PATROL OFFICER Work Phone: [facility] Start: 12-19-2024 End: 12-19-2024 Patient encounter procedure Chandrika Allen STUDENT SERVICES COUNSELOR - SECURITY [employer]HICLE PATROL OFFICER Work Phone: [facility] Comment on above: 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] (Primary Dx); Acute respiratory failure with hypoxia (HCC) [J96.01]; LRTI (lower respiratory tract infection) [J22] Start: 12-18-2024 End: 12-18-2024 Patient encounter procedure Chandrika Allen STUDENT SERVICES COUNSELOR - SECURITY [employer]LE [employer]ROL OFFICER Work Phone: 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 Start: 12-15-2024 End: 12-15-2024 ambulatory Jefferson Nathan MD Work Phone: [facility] Start: 12-15-2024 End: 12-15-2024 Patient encounter procedure Jefferson Nathan MD Work Phone: [facility] Comment on above: Acute respiratory fa ilure with hypoxia (HCC) (Primary Dx); Tracheostomy dependence (HCC); RSV (acute bronchiolitis due to respiratory syncytial virus); Leg DVT (deep venous thromboembolism), acute, left (HCC); Nonrheumatic aortic valve stenosis Start: 12-14-2024 End: 12-14-2024 ambulatory Jefferson Nathan MD Work Phone: [facility] Sleep Medicine [facility] Comment on above: Acute respiratory fa ilure with hypoxia (HCC) (Primary Dx); Tracheostomy dependence (HCC); RSV (acute bronchiolitis due to respiratory syncytial virus); ESRD on hemodialysis (CMS/HCC) (HCC); Pulmonary embolism, other, unspecified chronicity, unspecified whether acute cor pulmonale present (HCC); Nonrheumatic aortic valve stenosis Start: 12-13-2024 End: 12-13-2024 ambulatory Jefferson Nathan MD Work Phone: [facility] Sleep [facility] Comment on above: Acute respiratory fa ilure with hypoxia (HCC) (Primary Dx); Tracheostomy dependence (HCC); RSV (acute bronchiolitis due to respiratory syncytial virus); Paroxysmal A-fib (CMS/HCC) (HCC); Nonrheumatic aortic valve stenosis Start: 12-12-2024 End: 12-12-2024 ambulatory Jefferson Nathan MD Work Phone: [facility] [place] Comment on above: RSV (acute bronchiol itis due to respiratory syncytial virus) (Primary Dx); Tracheostomy dependence (HCC); Acute respiratory failure with hypoxia (HCC); Paroxysmal A-fib (CMS/HCC) (HCC); Peritonitis due to fungus (HCC) Start: 12-11-2024 End: 12-11-2024 ambulatory Jefferson Nathan MD Work Phone: [facility] Comment on above: RSV (acute [...] surgery center Sydni Forrester CNP Work Phone: [facility]ious Disease [place] Comment on above: Acute respiratory fa ilure with hypoxia (HCC) (Primary Dx); Tracheostomy dependence (HCC); S/P AVR; Peritonitis due to fungus (HCC); ESRD on hemodialysis (CMS/HCC) (HCC); Ischemic ulcer of toe of left foot, 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); Anemia, unspecified type; History of abdominal surgery Start: 12-07-2024 End: 12-07-2024 ambulatory Sydni Husain APRN - SECUR[employer]HIC[employer] OFFICER Work Phone: [facility] [place] Start: 12-07-2024 End: 03-23-2025 [facility] hospital care/day 25 minutes Vincent Meek MD Work Phone: [facility] Comment on above: Acute respiratory fa ilure with hypoxia (HCC) (Primary Dx); Ventilator dependent (HCC); Tracheostomy dependence (HCC); Pulmonary embolism, other, unspecified chronicity, unspecified whether acute cor pulmonale present (HCC); S/P AVR; ESRD on hemodialysis (CMS/HCC) (HCC) Start: 12-06-2024 End: 12-06-2024 Admission to same day surgery center Sydni Husain APRN - [employer]HICLE PATROL OFFICER Work Phone: [facility] Comment on above: Acute respiratory fa ilure with hypoxia (HCC) (Primary Dx); Tracheostomy dependence (HCC); S/P AVR; Peritonitis due to fungus (HCC); ESRD on hemodialysis (CMS/HCC) (HCC); Ischemic ulcer of toe of left foot, 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); History of abdominal surgery Start: 12-06-2024 End: 12-06-2024 ambulatory Sydni Husain APRN - SEC[employer]HIC[employer]ROL OFFICER Work Phone: [facility] [place] Start: 12-06-2024 End: 03-23-2025 [facility] hospital care/day 25 minutes Vincent Meek MD Work Phone: [facility] Comment on above: Acute respiratory fa ilure with hypoxia (HCC) (Primary Dx); Ventilator dependent (HCC); Tracheostomy dependence (HCC); Pulmonary embolism, other, unspecified chronicity, unspecified whether acute cor pulmonale present (HCC); S/P AVR; ESRD on hemodialysis (CMS/HCC) (HCC) Start: 12-05-2024 End: 03-23-2025 [facility] hospital care/day 35 minutes Vincent Meek MD Work Phone: [facility] [place] Comment on above: Acute respiratory fa ilure with hypoxia (HCC) (Primary Dx); Tracheostomy dependence (HCC); Ventilator dependent (HCC); Pulmonary embolism, other, unspecified chronicity, unspecified whether acute cor pulmonale present (HCC); S/P AVR; ESRD on hemodialysis (CMS/HCC) (HCC) Start: 12-04-2024 End: 12-04-2024 Admission to same day surgery center Sydni Husain STUDENT SERVICES COUNSELOR - SECURITY VEHICLE PATROL OFFICER Work Phone: [facility] [place] Comment on above: Acute respiratory fa ilure with hypoxia (HCC) (Primary Dx); Tracheostomy dependence (HCC); S/P AVR; Peritonitis due to fungus (HCC); ESRD on hemodialysis (CMS/HCC) (HCC); Ischemic ulcer of toe of left foot, 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); History of abdominal surgery Start: 12-04-2024 End: 12-04-2024 ambulatory Sydni Husain STUDENT SERVICES COUNSELOR - SECURITY VEHICLE PATROL OFFICER Work Phone: [facility] - [place] Comment on above: Atypical atrial flut ter (HCC) (Primary Dx) Start: 12-01-2024 End: 12-01-2024 Admission to same day surgery center Sydni Husain STUDENT SERVICES COUNSELOR - SECURITY VEHICLE PATROL OFFICER Work Phone: [facility] [place] Comment on above: Acute respiratory fa ilure with hypoxia (HCC) (Primary Dx); Tracheostomy dependence (HCC); S/P AVR; Peritonitis due to fungus (HCC); ESRD on hemodialysis (CMS/HCC) (HCC); Ischemic ulcer of toe of left foot, 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); Leg DVT (deep venous thromboembolism), acute, left (HCC); History of abdominal surgery Start: 12-01-2024 End: 12-01-2024 ambulatory Jefferson Nathan MD Work Phone: [facility] [place] Comment on above: Atypical atrial flut ter (HCC) (Primary Dx) Start: 12-01-2024 End: 12-01-2024 Patient encounter procedure Jefferson Nathan MD Work Phone: [facility] Comment on above: Acute respiratory fa ilure with hypoxia (HCC) (Primary Dx); Tracheostomy dependence (HCC); Ventilator dependent (HCC); Pulmonary embolism, other, unspecified chronicity, unspecified whether acute cor pulmonale present (HCC); S/P AVR Start: 11-30-2024 End: 11-30-2024 Admission to same day surgery center Sydni Husain STUDENT SERVICES COUNSELOR - SECURITY VEHICLE PATROL OFFICER Work Phone: [facility] [place] Comment on above: Acute respiratory fa ilure with hypoxia (HCC) (Primary Dx); Tracheostomy dependence (HCC); S/P AVR; Peritonitis due to fungus (HCC); ESRD on hemodialysis (CMS/HCC) (HCC); Ischemic ulcer of toe of left foot, 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); Leg DVT (deep venous thromboembolism), acute, left (HCC); History of abdominal surgery Start: 11-30-2024 End: 11-30-2024 ambulatory Sydni Husain APRN - SECURITY VEHICLE PATROL OFFICER Work Phone: [facility] [place] Comment on above: Acute respiratory fa ilure with hypoxia (HCC) (Primary Dx); Tracheostomy dependence (HCC); Ventilator dependent (HCC); Pulmonary embolism, other, unspecified chronicity, unspecified whether acute cor pulmonale present (HCC); S/P AVR; Tracheostomy dependent (HCC); Chronic bronchitis, unspecified chronic bronchitis type (HCC); ESRD on hemodialysis (CMS/HCC) (HCC) Start: 11-29-2024 End: 11-30-2024 Admission to same day surgery center Sydni Husain APRN - SECURITY VEHICLE PATROL OFFICER Work Phone: [facility] [place] Comment on above: Peritonitis due to f ungus (HCC) (Primary Dx); History of abdominal surgery; S/P AVR; Ischemic ulcer of toe of left foot, 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); Leg DVT (deep venous thromboembolism), acute, left (HCC); Anemia, unspecified type Start: 11-29-2024 End: 11-30-2024 ambulatory Jefferson Nathan MD Work Phone: [facility] - [place] [...] Telephone encounter Jefferson Nathan MD Work Phone: [facility] [place] Comment on above: Advice Only Start: 10-22-2024 End: 10-22-2024 ambulatory [facility] Start: 10-21-2024 End: 10-25-2024 ambulatory [facility] Start: 10-16-2024 End: 10-16-2024 Telephone encounter Enid Dumont APRN - SECURITY VEHICLE PATROL OFFICER Work Phone: [facility] [place] Comment on above: Care Coordination Start: 10-13-2024 End: 10-13-2024 Telephone encounter Lan Carpenter PA-C Work Phone: [facility] Start: 10-12-2024 End: 10-12-2024 Evaluation and management of inpatient Vincent Wilson MD Work Phone: [facility] Start: 10-03-2024 End: 10-03-2024 Emergency department patient visit [facility] Start: 10-03-2024 End: 10-03-2024 Subsequent hospital visit by physician [facility] Exam Room [address] [facility] [address] Comment on above: Arrived Start: 10-03-2024 End: 11-28-2024 Evaluation and management of inpatient LUCIANO MONTEMAYOR [facility] Start: 08-28-2024 End: 08-28-2024 ambulatory DARYN LOOMIS [facility] Start: 08-28-2024 End: 08-28-2024 Office outpatient visit 25 minutes Jr Shah MD Work Phone: [facility] Cardiology - [place] Comment on above: Paroxysmal A-fib (CM S/HCC) (HCC) (Primary Dx); Nonrheumatic aortic valve stenosis; Tobacco abuse; Alcohol use disorder in remission Start: 05-10-2024 Chart abstracting Alan Barroso RN [facility] Comment on above: Dialysis status upda te Start: 04-12-2024 Telephone encounter [facility] Coordinators Work Phone: [facility] Start: 02-12-2024 Telephone encounter Jr Shah MD Work Phone: [facility] Central Scheduling Comment on above: unable to contact pa jadon unable to contact greg diop to schedule Start: 11-12-2023 End: 11-12-2023 Office outpatient visit 25 minutes Quiana Contreras STUDENT SERVICES COUNSELOR - SECURITY VEHICLE PATROL OFFICER Work Phone: [facility] Card[facility] Comment on above: Nonrheumatic aortic valve stenosis (Primary Dx); Paroxysmal A-fib (CMS/HCC) (HCC); Primary hypertension; Calcification of abdominal aorta (HCC); Tobacco abuse; ESRD on hemodialysis (CMS/HCC) (HCC) Start: 10-14-2023 Telephone encounter Sasha weeks STUDENT SERVICES COUNSELOR - SECURITY VEHICLE PATROL OFFICER Work Phone: [facility] Cardiology Comment on above: Cancelled Appointmen t Start: 09-07-2023 Transcribe Orders Fransisco toro STUDENT SERVICES COUNSELOR Work Phone: [facility] Central Scheduling Comment on above: Personal history of nicotine dependence (Primary Dx); Nicotine dependence, cigarettes, uncomplicated Start: 08-18-2023 Telephone encounter Quiana forman STUDENT SERVICES COUNSELOR - SECURITY VEHICLE PATROL OFFICER Work Phone: [facility] Cardiology Start: 08-16-2023 End: 08-17-2023 Evaluation and management of inpatient Dangelo Horne Work Phone: [facility] ED Comment on above: New onset a-fib (CMS /HCC) (HCC) (Primary Dx); Atrial fibrillation, persistent (HCC) Start: 05-01-2023 End: 05-01-2023 Emergency department patient visit Jese Frank MD Work Phone: [facility] Comment on above: Skin sore (Primary D x); ESRD (end stage renal disease) on dialysis (HCC) Start: 12-30-2021 Telephone encounter [facility]ckee [facility] Comment on above: Procedure please advise Start: 12-29-2021 ambulatory Rudy Painter MD Work Phone: Ambulatory Surgery Start: 12-29-2021 Telephone encounter Cecilia galo PA-C [facility] Comment on above: cecilia carlson Start: 12-25-2021 End: 12-25-2021 Patient encounter procedure Rudy Painter [facility] Comment on above: Acute blood loss ane ruth (Primary Dx); Rectal bleeding Start: 09-15-2021 End: 09-15-2021 Subsequent hospital visit by physician Cindy Patel MD Work Phone: [facility] Cath & IR Lab Start: 10-17-2020 End: 10-17-2020 Subsequent hospital visit by physician Cindy Patel Work Phone: [facility] [place] [facility] Start: 03-13-2020 End: 03-13-2020 Subsequent hospital visit by physician Nora Sinha Acc LAB EKG [facility] Comment on above: Preoperative testing [Z01.818] Start: 10-19-2019 End: 10-27-2019 Evaluation and management of inpatient Callie Nieves Work Phone: [facility] Comment on above: Acute kidney injury (HCC) (Primary Dx); Uncontrolled hypertension; Normocytic anemia; Angioedema, initial encounter; Hyperkalemia; Metabolic acidosis; Rectal bleeding Procedures Date Procedure Procedure Detail Performing Clinician Start: 04-17-2025 Comprehensive metabo lic panel Keiry Solares MD Work Phone: Start: 04-09-2025 Radex hand minimum 3 views Yari MARLEYC Work Phone: Start: 04-09-2025 Basic metabolic pane l calcium total Yari Oplinger PA-C Work Phone: Start: 04-05-2025 Assay of troponin quantitative Barbara Centeno Levy PA-C Work Phone: Start: 04-05-2025 Radiologic exam ches t 2 views Barbara Centeno Levy PA-C Work Phone: Start: 04-05-2025 Basic metabolic pane l calcium total Barbara Centeno Levy PA-C Work Phone: Start: 04-05-2025 Ecg [...] on above: Performed By: #### L [id number] ####Loan Review Analyst: DOMENICA JARA ([phone])[facility] ([facility])[address] [place] [address] Start: 02-21-2025 C-reactive protein Karena Jett MD [...] Start: 01-25-2025 Compatibility each u nit electronic SangeetamyQaas DO Start: 01-25-2025 End: 01-25-2025 TRANSFUSE RED BLOOD CELLS Sangeeta [employer] sharif DO Start: 01-25-2025 Basic metabolic pane l [...] frz w /in 8 hr Nils S Antwanh DO Work Phone: Start: 01-22-2025 End: 01-22-2025 [...] Blood count complete automated Crystal D. Meranto STUDENT SERVICES COUNSELOR - SECURITY VEHICLE PATROL OFFICER Work Phone: Start: 01-21-2025 Glucose quantitative blood [...] History of abd ominal surgery Sydni Husain STUDENT SERVICES COUNSELOR - SECURITY VEHICLE PATROL OFFICER Work Phone: Start: 10-12-2024 Insj non-tunneled ce ntral venous cath age 5 yr/> Rudolph German BOOM SUPERVISOR Start: 10-12-2024 CO AN CENTRAL LINE T RIPLE LUMEN Rudolph German BOOM SUPERVISOR Start: 10-12-2024 CO AN ELECTIVE ENDOTRACHEAL AIRWAY Rudolph German BOOM SUPERVISOR Start: 10-12-2024 Us vasc access sits vsl patency ndl entry Rudolph German BOOM SUPERVISOR Start: 10-12-2024 ANESTHESIA ARTERIAL LINE PLACEMENT Rudolph German BOOM SUPERVISOR Start: 10-03-2024 Ct head/brain w/o contrast material [...] vaccination due to patient refusal Sasha Vesta STUDENT SERVICES COUNSELOR - SECURITY VEHICLE PATROL OFFICER Work Phone: Start: 08-17-2023 Echo tthrc r-t 2d w/wom-mode compl spec&colr d Earlene Irving MD Work Phone: Start: 08-17-2023 Thyrotropin [Units/volume] in Serum or Plasma Lan [facility] PA-C Work Phone: Start: 08-17-2023 Basic metabolic pane l calcium total Earlene Irving MD Work Phone: Start: 08-16-2023 End: 08-16-2023 Basic metabolic panel calcium total Sha Chandana Roberta PA-[employer] Work Phone: Start: 08-16-2023 Radiologic exam ches t single view Sha N Roberta PA-C Work Phone: Start: 08-16-2023 Ecg routine ecg w/le ast 12 lds i&r only Dangleo Horne DO Work Phone: Start: 10-17-2020 Special treatments a nd procedures Cindy Patel Work Phone: Start: 03-13-2020 Ecg routine ecg w/le ast 12 lds trcg only w/o i&r [place] Provider Start: 03-13-2020 BASIC METABOLIC PNL Tati farooq ([employer] Admissions Officer) Zachary Work Phone: Start: 03-13-2020 CBC Darya (A prn Admissions Officer) Zachary Work Phone: Start: 03-13-2020 MDRD GFR Darya (A prn Admissions Officer) Zachary Work Phone: Start: 03-13-2020 PROTHROMBIN TIME/PT Tati trivedi ([employer] Admissions Officer) Zachary Work Phone: Start: 10-27-2019 Basic metabolic [...] Basic metabolic panel calcium total Delon Jessica STUDENT SERVICES COUNSELOR - SECURITY VEHICLE PATROL OFFICER Work Phone: Start: 10-22-2019 GLOMERULAR BASEMENT MEMBRANE (GBM) ANTIBODY IGG Randolph Liz MD Work Phone: Start: 10-21-2019 Radiologic exam abdo men 1 view Brett Encarnacion MD Work Phone: Start: 10-21-2019 End: 10-21-2019 Dup-scan artl shayan abdl/pel/scrot&/rpr orgn com Brett Encarnacion MD Work Phone: Start: 10-21-2019 Basic metabolic pane l calcium total Delon Jessica STUDENT SERVICES COUNSELOR - SECURITY VEHICLE PATROL OFFICER Work Phone: Start: 10-20-2019 Basic metabolic pane l calcium total Brett Encarnacion MD Work Phone: Start: 10-20-2019 TRANSFUSE RED BLOOD CELLS Delon Jessica STUDENT SERVICES COUNSELOR - SECURITY VEHICLE PATROL OFFICER Work Phone: Start: 10-20-2019 TRANSFUSE RED BLOOD CELLS Delon Jessica STUDENT SERVICES COUNSELOR - SECURITY VEHICLE PATROL OFFICER Work Phone: Start: 10-20-2019 Blood count hemoglobin Delon Jessica STUDENT SERVICES COUNSELOR - SECURITY VEHICLE PATROL OFFICER Work Phone: Start: 10-20-2019 Basic metabolic pane l calcium total Delon Jessica STUDENT SERVICES COUNSELOR - SECURITY VEHICLE PATROL OFFICER Work Phone: Start: 10-20-2019 RBC morphology findi ng Nom (Bld) Delon Jessica STUDENT SERVICES COUNSELOR - SECURITY VEHICLE PATROL OFFICER Work Phone: Start: 10-19-2019 Basic metabolic pane [...] above: Test Performed by [facility], [address] [place], [place] [address] Start: 10-19-2019 End: 10-19-2019 ADD ON LAB [...] History of abdom inal surgery Sydni Husain STUDENT SERVICES COUNSELOR - SECURITY VEHICLE PATROL OFFICER Work Phone: H/O: surgery History of abdom inal surgery Sydni Husain STUDENT SERVICES COUNSELOR - SECURITY VEHICLE PATROL OFFICER Work Phone: H/O: surgery History of abdom inal surgery Sydni Husain STUDENT SERVICES COUNSELOR - SECURITY VEHICLE PATROL OFFICER Work Phone: H/O: surgery History of abdom inal surgery Sydni Husain STUDENT SERVICES COUNSELOR - SECURITY VEHICLE PATROL OFFICER Work Phone: H/O: surgery History of abdom inal surgery Sydni Husain STUDENT SERVICES COUNSELOR - SECURITY VEHICLE PATROL OFFICER Work Phone: H/O: surgery History of abdom inal surgery Sydni Husain STUDENT SERVICES COUNSELOR - SECURITY VEHICLE PATROL OFFICER Work Phone: Vaccine refused by patient Missed vaccination due to patient refusal Palak Thurman DO Work Phone: Plan of Treatment Date Care Activity Detail Author Start: 2040 RSV Immunization for Adults (1 - 1-dose 75+ series) RSV Immunization for Adults (1 - 1-dose 75+ series) [facility] Start: 2040 [facility] Start: 01-24-2035 Screening for malignant neoplasm of colon [facility] Start: 03-14-2030 Lipid panel Lipid Panel [facility] Start: 04-17-2026 Creatinine measurement Creatinine Level [facility] Start: 04-17-2026 Potassium measurement Potassium Level [facility] Start: 04-12-2026 Screening for malignant neoplasm of lung Lung Cancer Screening [facility] Start: 04-09-2026 Creatinine measurement Creatinine Level [facility] Start: 04-09-2026 Potassium measurement Potassium Level [facility] Start: 04-05-2026 Creatinine measurement Creatinine Level [facility] Start: 04-05-2026 Potassium measurement Potassium Level [facility] Start: 03-21-2026 Creatinine measurement Creatinine Level [facility] Start: 03-21-2026 Potassium measurement Potassium Level [facility] Start: 03-13-2026 Screening for malignant neoplasm of lung Lung Cancer Screening [facility] Start: 03-05-2026 Creatinine measurement [facility] Start: 03-05-2026 Potassium measurement [facility] Start: 02-23-2026 Creatinine measurement Creatinine Level [facility] Start: 02-23-2026 Echocardiography Echocardiogram [facility] Start: 02-23-2026 Potassium measurement Potassium Level [facility] Start: 02-23-2026 [facility] Start: 02-12-2026 Creatinine measurement Creatinine Level [facility] Start: 02-12-2026 Potassium measurement Potassium Level [facility] Start: 02-01-2026 Creatinine measurement [facility] Start: 02-01-2026 Potassium measurement [facility] Start: 01-16-2026 Creatinine measurement Creatinine Level [facility] Start: 01-16-2026 Potassium measurement Potassium Level [facility] Start: 01-15-2026 Creatinine measurement Creatinine Level [facility] Start: 01-15-2026 Potassium measurement Potassium Level [facility] Start: 01-12-2026 Creatinine measurement Creatinine Level [facility] Start: 01-12-2026 Potassium measurement Potassium Level [facility] Start: 01-08-2026 Creatinine measurement Creatinine Level [facility] Start: 01-08-2026 Potassium measurement Potassium Level [facility] Start: 01-05-2026 Potassium measurement Potassium Level [facility] Start: 01-01-2026 Creatinine measurement Creatinine Level [facility] Start: 01-01-2026 Potassium measurement Potassium Level [facility] Start: 12-30-2025 Creatinine measurement Creatinine Level [facility] Start: 12-30-2025 Potassium measurement Potassium Level [facility] Start: 12-25-2025 Creatinine measurement Creatinine Level [facility] Start: 12-25-2025 Potassium measurement Potassium Level [facility] Start: 12-22-2025 Creatinine measurement Creatinine Level [facility] Start: 12-22-2025 Potassium measurement Potassium Level [facility] Start: 12-18-2025 Creatinine measurement Creatinine Level [facility] Start: 12-18-2025 Potassium measurement Potassium Level [facility] Start: 12-15-2025 Creatinine measurement Creatinine Level [facility] Start: 12-15-2025 Potassium measurement Potassium Level [facility] Start: 12-11-2025 Creatinine measurement Creatinine Level [facility] Start: 12-11-2025 Potassium measurement Potassium Level [facility] Start: 12-04-2025 Creatinine measurement Creatinine Level [facility] Start: 12-04-2025 Potassium measurement Potassium Level [facility] Start: 12-01-2025 Creatinine measurement Creatinine Level [facility] Start: 12-01-2025 Potassium measurement Potassium Level [facility] Start: 11-30-2025 Creatinine measurement Creatinine Level [facility] Start: 11-30-2025 Potassium measurement Potassium Level [facility] Start: 11-29-2025 Creatinine measurement Creatinine Level [facility] Start: 11-29-2025 Potassium measurement Potassium Level [facility] Start: 11-24-[address] [facility] Start: 11-24-2025 [facility] Start: 2025 RSV Immunization aged 60 or older (1 - 1-dose 60+ series) RSV Immunization aged 60 or older (1 - 1-dose 60+ series) [facility] Start: 11-03-2025 Creatinine measurement Creatinine Level [facility] Start: 11-03-2025 Potassium measurement Potassium Level [facility] Start: 11-02-2025 Echocardiography Echocardiogram [facility] Start: 10-11-2025 Screening for malignant neoplasm of lung [facility] Start: 05-28-[address] [facility] Start: 05-28-2025 [facility] Start: 04-26-2025 End: 04-26-2025 Patient encounter procedure 04/26/2025 9:20 AM EDT Office Visit [facility] [place] [address] [place] [address] Yasemin Lucas, STUDENT SERVICES COUNSELOR - SECURITY VEHICLE PATROL OFFICER [address] [place] [address] [facility] [place] Start: 04-12-2025 End: 04-12-2025 Patient encounter procedure [facility] [address] [facility] [facility] [address] Start: 04-05-2025 End: 04-05-2025 ambulatory [facility] Start: 04-05-2025 End: 04-05-2025 Patient encounter procedure 04/05/2025 1:00 PM EDT Office Visit [facility] [address] [place] [phone] Sophia Lara STUDENT SERVICES COUNSELOR - SECURITY VEHICLE PATROL OFFICER [address] [place] [address] [facility] Start: 04-03-2025 End: 04-03-2025 ambulatory [facility] Start: 04-03-2025 End: 04-03-2025 Patient encounter procedure 04/03/2025 10:45 AM EDT Office Visit [facility] [address] [place] [phone] Zoe Valadez, STUDENT SERVICES COUNSELOR - SECURITY VEHICLE PATROL OFFICER [address] [place] [phone] [facility] Start: 03-26-2025 End: 02-23-2026 CT Chest WO contrast CT chest wo IV contrast Imaging Routine Hemoptysis Expected: 03/26/2025, Expires: 02/23/2026 [facility] Work Phone: Comment on above: Expected: 03/26/2025, Expires: Start: 02-15-2025 End: 02-15-2025 ambulatory [facility] Start: 02-15-2025 End: 02-15-2025 Patient encounter procedure [facility] Start: 02-14-2025 End: 02-14-[address] [facility] [place] Start: 02-14-2025 End: 02-14-2025 Patient encounter procedure [facility] Start: 12-25-2024 End: 12-25-2024 Patient encounter procedure 12/25/2024 10:00 AM EDT Office Visit [facility] [address] [place] [address] Sophia Lara, STUDENT SERVICES COUNSELOR - SECURITY VEHICLE PATROL OFFICER [address] [place] [address] [facility] Start: 12-18-2024 End: 12-18-2024 Telemedicine consultation with patient 12/18/2024 1:[address] [facility] [place] [address] [place] [id number] Osiris Terrell, STUDENT SERVICES COUNSELOR - SECURITY VEHICLE PATROL OFFICER [address] [place] [address] [facility] [place] Start: 10-09-2024 End: 10-09-2024 Patient encounter procedure 10/09/2024 3:00 PM EST Appointment [facility] [address] [facility] [address] [place] [phone] Jr Shah MD [address] [place] [address] [facility] [address] Start: 09-27-2024 Medicare Advantage Annual Wellness Visit Medicare Advantage Annual Wellness Visit [facility] Start: 09-27-2024 [facility] Start: 09-13-2024 End: 09-13-2024 Patient encounter procedure 09/13/2024 3:00 PM EST Appointment [facility] [address] [place] [phone] Jr Shah MD [address] [facility] [address] [place] [address] [facility] Start: 09-11-2024 End: 08-28-2026 US Heart Transthoracic Transthoracic echocardiogram (TTE) complete with contrast, bubble, strain, and 3D PRN CV Echocardiography Routine Nonrheumatic aortic valve stenosis Expected: 09/11/2024 (Approximate), Expires: 08/28/2026 [facility] Work Phone: Comment on above: Expected: 09/11/2024 (Approximate), Expi res: 08/28/2026 Start: 08-17-2024 Thyroid stimulating hormone measurement TSH Level [facility] Start: 05-28-2024 COVID-19 Vaccine ( season) COVID-19 Vaccine () [facility] Start: 05-28-[address] [facility] Start: 05-28-2024 [facility] Start: 02-07-2024 End: 02-07-2024 Patient encounter procedure [facility] 1 [facility] Start: 11-29-2023 End: 11-29-2023 Patient encounter procedure 11/29/2023 3:00 PM EST Appointment [facility] CT Imaging [address] [place] [phone] Fransisco Pineda, STUDENT SERVICES COUNSELOR [address] [place] [address] [facility] Imaging Start: 11-24-2023 End: 11-24-2023 Patient encounter procedure 11/24/2023 1:30 PM EST Office Visit [facility] Dermatology 1 [facility] [address] [place] [phone] Madhuri De La Rosa MD 1 [facility] [address] [place] [address] [facility] Dermatology Start: 09-27-2023 Behavioral Health Screening Behavioral Health Screening [facility] Start: 09-27-2023 Medicare Advantage Annual Wellness Visit Medicare Advantage Annual Wellness Visit [facility] Start: 09-07-2023 End: 09-07-2024 CT Chest for screening WO contrast CT lung screening low dose Imaging Routine Nicotine dependence, cigarettes, uncomplicated Personal history of nicotine dependence Expected: 09/07/2023, Expires: 09/07/2024 [facility] Work Phone: Comment on above: Expected: 09/07/2023, Expires: Start: 05-28-2023 COVID-19 Vaccine ( season) COVID-19 Vaccine () [facility] Start: 05-28-2023 Influenza vaccination Influenza Vaccine (#1) [facility] Start: 05-10-2023 DIABETES SCREEN DIABETES SCREEN [facility] Start: 05-10-2023 Diabetes Screening Diabetes Screening [facility] Start: 03-13-2023 DIABETES SCREEN DIABETES SCREEN [facility] Start: 05-28-2022 Influenza vaccination INFLUENZA (Season Ended) [facility] Start: 10-22-2021 End: 10-22-2021 Patient encounter procedure 10/22/2021 Office Visit Dermatology Madhuri De La Rosa MD 1 [facility], [address] [place] [address] Dermatology [facility] Start: 05-28-2021 Influenza vaccination [facility] Start: 05-20-2021 Hepatitis B Vaccines (1 of 1 - Risk Dialysis 4-dose series) Hepatitis B Vaccines (1 of 1 - Risk Dialysis 4-dose series) [facility] Start: 05-20-2021 [facility] Start: 05-10-2021 HEMOGLOBIN/HEMATOCRIT HEMOGLOBIN/HEMATOCRIT [facility] Start: 05-10-2021 SERUM CREATININE SERUM CREATININE [facility] Start: 12-08-2020 Annual Wellness Visit (AWV) Annual Wellness Visit (AWV) [facility] Start: 2020 PROSTATE CANCER SCREENING DISCUSSION PROSTATE CANCER SCREENING DISCUSSION [facility] Start: 2020 Prostate specific antigen measurement Prostate Cancer Screening Discussion [facility] Start: 11-12-2020 End: 11-12-2020 Office Visit 11/12/2020 Office Visit Dermatology Madhuri De La Rosa MD 1 [facility] [place] [address] [phone] Dermatology Start: 10-19-2020 Screening for malignant neoplasm of colon [facility] Start: 05-28-2020 Influenza vaccination [facility] Start: 05-28-2019 Influenza vaccination Flu vaccine (#1) [facility] Work Phone: Start: 2015 Screening for malignant neoplasm of colon Colon cancer screen colonoscopy [place], [place] Start: 2015 Shingles Vaccine (1 of 2) Shingles Vaccine (1 of 2) [facility] Start: 2015 SHINGRIX VACCINE (1 of 2) SHINGRIX VACCINE (1 of 2) [facility] Start: 2015 Tuberculosis screening COLORECTAL CANCER SCREENING,SEE MODIFIER [facility] Start: 2015 Zoster Vaccines (1 of 2) Zoster Vaccines (1 of 2) [facility] Start: 2015 [facility] Start: 2010 COLOGUARD (FIT-DNA) COLOGUARD (FIT-DNA) [facility] Start: 2010 Colonoscopy COLONOSCOPY [facility] Start: 2010 COLORECTAL CANCER SCREENING COLORECTAL CANCER SCREENING [facility] Start: [address] COLONOGRAPHY [facility] Start: 2010 FECAL OCCULT BLOOD FECAL OCCULT BLOOD [facility] Start: 2010 Screening for malignant neoplasm of colon [facility] Start: 2010 SIGMOIDOSCOPY SIGMOIDOSCOPY [facility] Start: 2005 Diabetes screen Diabetes screen [place], [place] Start: 2005 Lipid panel Lipid screen [facility] Start: 2000 Diabetes screen Diabetes screen [facility] Start: 2000 Lipid panel Lipid Screening [facility] Start: 2000 LIPID SCREEN LIPID SCREEN [facility] Start: 1984 DTaP/Tdap/Td vaccine (1 - Tdap) DTaP/Tdap/Td vaccine (1 - Tdap) [facility] Start: 1984 DTaP/Tdap/Td Vaccines (1 - Tdap) DTaP/Tdap/Td Vaccines (1 - Tdap) [facility] Start: 1984 Pneumococcal Vaccine: 50+ Years (1 of 2 - PCV) Pneumococcal Vaccine: 50+ Years (1 of 2 - PCV) [facility] Start: 1984 Urine microalbumin profile [facility] Start: 1984 [facility] Start: 1983 ANNUAL PCP TEAM CHRONIC DISEASE VISIT ANNUAL PCP TEAM CHRONIC DISEASE VISIT [facility] Start: 1983 Anxiety Screening Anxiety Screening [facility] Start: 1983 Depression Screening Depression Screening [facility] Start: [address] [facility] Start: 1983 HEPATITIS C SCREENING HEPATITIS C SCREENING [facility] Start: 1983 HIV SCREENING HIV SCREENING [facility] Start: 1983 HIV screening HIV Screening [facility] Start: 1977 Adult depression screening assessment DEPRESSION SCREENING [facility] Start: 1977 [facility] Start: 1971 Pneumococcal 0-64 years Vaccine (1 of 1 - PPSV23) Pneumococcal 0-64 years Vaccine (1 of 1 - PPSV23) [place] Start: 1971 Pneumococcal 0-64 years Vaccine (1 of 2 - PPSV23) Pneumococcal 0-64 years Vaccine (1 of 2 - PPSV23) [facility] Start: 1971 Pneumococcal vaccination Pneumococcal Vaccine (1 of 2 - PCV) [facility] Start: 1971 Pneumococcal Vaccine: Pediatrics (0 to 5 Years) and At-Risk Patients (6 to 64 Years) (1 - PCV) Pneumococcal Vaccine: Pediatrics (0 to 5 Years) and At-Risk Patients (6 to 64 Years) (1 - PCV) [facility] Start: 1971 Pneumococcal Vaccine: Pediatrics (0 to 5 Years) and At-Risk Patients (6 to 64 Years) (1 of 2 - PCV) Pneumococcal Vaccine: Pediatrics (0 to 5 Years) and At-Risk Patients (6 to 64 Years) (1 of 2 - PCV) [facility] Start: 1970 COVID-19 Vaccine (1) COVID-19 Vaccine (1) [facility] Start: 1966 MMR Vaccines (1 of 1 - Standard series) MMR Vaccines (1 of 1 - Standard series) [facility] Start: 1966 [facility] Start: 05-17-1966 COVID-19 Vaccine (#1) COVID-19 Vaccine (#1) [facility] Start: 05-17-1966 Examination of skin Derm Melanoma Skin Check [facility] Start: 1965 Lipid panel [facility] Start: 1965 Medicare Advantage Annual Wellness Visit (AWV) Medicare Advantage Annual Wellness Visit (AWV) [facility] Start: 1965 Screening for malignant neoplasm of colon [facility] Basic metabolic 2000 panel - Serum or Plasma Basic Metabolic Panel Lab Routine Daily until discontinued starting 10/23/2019, 5 completed [facility] Work Phone: Comment on above: Daily until discontinued starting 2019, 5 completed CBC W Auto Different ial panel - Blood CBC Auto Differential Lab Routine Daily until discontinued starting 10/23/2019, 5 completed [facility] Work Phone: Comment on above: Daily until discontinued starting 2019, 5 completed End: 12-25-2022 COLONOSCOPY DIAGNOSTIC COLONOSCOPY DIAGNOSTIC Endoscopy Routine Acute blood loss anemia Rectal bleeding 1 Occurrences starting 12/25/2021 until 12/25/2022 [facility] Work Phone: Comment on above: 1 Occurrences starting 12/25/2021 until 12/25/2022 End: 12-30-2022 COLONOSCOPY DIAGNOSTIC COLONOSCOPY DIAGNOSTIC Endoscopy Routine Other iron deficiency anemia Rectal bleeding 1 Occurrences starting 12/30/2021 until 12/30/2022 [facility] Work Phone: Comment on above: 1 Occurrences starting 12/30/2021 until 12/30/2022 End: 04-12-2025 CT Chest WO contrast [facility] Work Phone: Comment on above: Once for 1 Occurrences starting 04/12/20 until 04/12/2025 Electrocardiogram EKG BIC 2019 3:36 PM EDT [facility] End: 01-22-2025 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 [facility] Work Phone: End: 10-19-2019 Hemodialysis inpatient Hemodialysis inpatient Dialysis Routine One Time for 1 Occurrences starting 10/19/2019 until 10/19/2019 [facility] Work Phone: Comment on above: One Time for 1 Occurrences starting 09/28 until 10/19/2019 End: 10-21-2019 Hemodialysis inpatient Hemodialysis inpatient Dialysis Routine One Time for 1 Occurrences starting 10/21/2019 until 10/21/2019 [email or web address] Work Phone: Comment on above: One Time for 1 Occurrences starting 09/28 until 10/21/2019 End: 10-23-2019 Hemodialysis inpatient Hemodialysis inpatient Dialysis Routine One Time for 1 Occurrences starting 10/23/2019 until 10/23/2019 [email or web address] Work Phone: Comment on above: One Time for 1 Occurrences starting 09/28 until 10/23/2019 Hemodialysis inpatient Hemodialy sis inpatient Dialysis Routine Every MWF until discontinued starting 10/27/2019 [email or web address] Work Phone: Comment on above: Every MWF until discontinued starting End: 01-26-2025 Hemoglobin [Mass/volume] in Blood [facility] Work Phone: End: 02-21-2025 Legionella and Streptococcus Urine Antigen [facility] Work Phone: Magnesium [Mass/volu me] in Serum or Plasma MAGNESIUM Lab Routine Daily until discontinued starting 10/23/2019, 5 completed [facility] Work Phone: Comment on above: Daily until discontinued starting 2019, 5 completed End: 01-22-2025 Peripheral blood smear [facility] End: 01-22-2025 Peripheral Blood Smear [facility] Peripheral blood smear [facility] Peripheral Blood Smear [facility] Phosphate [Mass/volu me] in Serum or Plasma Phosphorus Lab Routine Daily until discontinued starting 10/23/2019, 5 completed [facility] Work Phone: Comment on above: Daily until discontinued starting 2019, 5 completed End: 09-15-2021 Special treatments and procedures [facility] Work Phone: Comment on above: Once for 1 Occurrences starting 09/15/20 until 09/15/2021 End: 10-26-2019 Surgical Pathology Surgical Pathology Lab STAT Once for 1 Occurrences starting 10/26/2019 until 10/26/2019 [email or web address] Work Phone: Comment on above: Once for 1 Occurrences starting 10/26/19 20 until 10/26/2019 Surgical Pathology Surgical Path ology Lab STAT 10/26/2019 10:00 AM EST [facility] Work Phone: End: 02-21-2025 Urine Hold Cup [facility] Immunizations Immunization Date Immunization Notes Care Provider Fa domitila 05-20-2020 hepatitis B vaccine, unspecified formulation Jese Frank MD Work Phone: [facility] 01-19-2020 hepatitis B vaccine, unspecified formulation Jese Frank MD Work Phone: [facility] 12-19-2019 hepatitis B vaccine, unspecified formulation Jese Frank MD Work Phone: [facility] 11-15-2019 hepatitis B vaccine, unspecified formulation Jese Frank MD Work Phone: [facility] Payers Date Payer Category Payer Self-pay 2023 Medicare HMO [id number] 2023 Medicare [id number] 2022 Medicaid HMO [id number] 2022 Medicaid [id number] 2020 Medicaid [id number] 2020 Medicare [id number] 2020 Medicare [id number] 2020 Unknown [id number] 2020 Medicaid MEDICAID [facility] MEDICAID [id number] 2020-Present Medicaid [id number] 2019 Medicare MEDICARE MEDICAR E A AND B [id number] 2019-Present [place], [place] Medicare [id number] Unknown [id number] Unknown [id number] Unknown [id number] Unknown [id number] Unknown [id number] Unknown [id number] Unknown [id number] Unknown [id number] Unknown [id number] Unknown [id number] Unknown [id number] Unknown [id number] Unknown [id number] Social History Date Type Detail Facility Start: 1993 End: 03-15-2025 Tobacco smoking status MAIS Current every day smoker [facility] Start: 1993 History of tobacco use Cigarette Smoker [facility] Work Phone: Start: 03-13-2020 End: 03-13-2025 Cigarettes smoked current (pack per day) - Reported [facility] Work Phone: Start: 03-13-2020 End: 03-15-2025 Tobacco use and exposure Never used [facility] Start: 03-13-2020 End: 08-16-2023 Alcohol intake Current drinker of alcohol (finding) [facility] Work Phone: Start: 1965 Sex Assigned At Not on file [facility] Work Phone: Start: 12-15-2021 End: 05-01-2023 Exposure to SARS-CoV-2 (event) Not sure [facility] Start: 10-19-2019 Alcohol Comment on weekends [facility] Work Phone: Start: 12-25-2021 End: 04-17-2025 Alcohol intake Ex-drinker (finding) [facility] Start: 1965 Sex Assigned At Male [facility] Start: 05-01-2023 End: 03-13-2025 Alcohol Use Disorder Identification Test - Consumption [AUDIT-C] [facility] How often to you hav e a drink containing alcohol? Never [facility] How many standard dr inks containing alcohol do you have on a typical day? Patient does not drink [facility] Start: 11-15-2020 Gender identity Identifies as male gender (finding) [facility] Start: 08-10-2020 Sexual orientation Heterosexual (finding) [facility] Start: 04-27-2022 Sex Male (finding) [facility] History of tobacco use Passive smoker [facility] Start: 10-13-2024 Tobacco Comment Started at 28, 3 PPD, tapered down to 1 PPD in 2020 after quitting drinking. 10/27/24 [facility] Tobacco smoking stat us MAIS Unknown if ever smoked [facility] Work Phone: Start: 02-20-2025 Tobacco smoking status NHIS Ex-smoker [facility] Start: 1993 History of tobacco use Current smoker [facility] How often do you nee d to have someone help you when you read instructions, pamphlets, or other written material from your doctor or pharmacy [SILS] Sometimes [facility] Has the electric, ga s, oil, or water [employer] threatened to shut off services in your home in past 12Mo No [facility] Do you feel stress - tense, restless, nervous, or anxious, or unable to sleep at night because your mind is troubled all the time - these days [OSQ] To some extent [facility] (I/We) worried wheth er (my/our) food would run out before (I/we) got money to buy more. Never true [facility] Medical Equipment Procedure Code Equipment Code Equipment Origin al Text Equipment Identifier Dates [id number] Start: 10-12-2024 [id number] Start: 10-09-2024 [id number] Start: 10-14-2024 [id number] Start: 10-14-2024 [id number] Start: 10-14-2024 [id number] Start: 10-14-2024 [id number] Start: 10-14-2024 [id number] Start: 10-14-2024 [id number] Start: 10-14-2024 [id number] Start: 11-03-2024 [id number] Start: 01-30-2025 Functional Status Date Assessment Result Facility 03-13-2025 Total score [AUDIT-C] 0 03/13/20 8:25 AM EDT Karo Pérez RN [facility] Clinical Notes 10-24-2019 to 04-17-2025 Sarina Granado RN - 04/17/2025 1:25 PM EDTCblack Granaod RN - 04/17/2025 1:25 PM Nydia Palencia RN - 04/17/2025 10:13 AM EDTDischarge InstructionsAttachmentsDischarge Instructions Note Date & Type Note Facility 04-17-2025 Emergency department Note Report called to [facility]. [facility] 04-17-2025 Emergency department Note Report called to [facility]. PIV placed, blood collected for lab work, pt states it hurts and he does not want an PIV left in, If I leave it he will rip it out. PIV Dc'd documented in this encounter [facility] 04-17-2025 Hospital Discharg e instructions Keiry [...] Do When Your INR Is Too High ([place] Irish)documented in this encounter [facility] 04-17-2025 Emergency department Note PIV placed, blood collected for lab work, pt states it hurts and he does not want an PIV left in, If I leave it he will rip it out. PIV Dc'd [facility] 04-11-2025 Note At this time patient s appointment is cancelled due to insurance being a HMO, there is no referral on file. Provided fax number once received will contact to schedule. Please advise [facility] 04-11-2025 Telephone encount er Note At this time patients appointment is cancelled due to insurance being a HMO, there is no referral on file. Provided fax number once received will contact to schedule. Please advise [facility] 04-11-2025 Miscellaneous Notes Formattin g of [...] Medication Name: n/a documented in this encounter [facility] 04-11-2025 Telephone encount er Note Scheduled next avail with Dr. Mata. [facility] 04-11-2025 Telephone encount er Note Name of Caller: Sabino Contact Reason for Appointment: Sabino requesting to schedule patient appointment for podiatry. Please advise. Office Name: Ortho Medication Refills need, if any: n/a Medication Name: n/a [facility] 04-09-2025 Emergency department Note Consuelo Johnson here to transport pt back to facility. [facility] 04-09-2025 Emergency department Note Consuelo Johnson [...] to the emergency department via EMS from [facility] for evaluation of hyperkalemia. Patient states [...] who presents to the emergency department from [facility] with concerns for hyperkalemia. Patient [...] signs. FINAL IMPRESSION 1. ESRD on hemodialysis ([facility]) ([facility]) 2. Contusion of dorsum of right hand DISPOSITION Discharge 04/09/2025 01:35:38 PM Shared decision making preformed. PATIENT REFERRED TO: [facility] [address] [facility] [phone] As needed, If symptoms worsen [...] Date Acute renal failure (ARF) ([facility]) 10/19/2019 Anemia 12/30/2021 Calcification of abdominal aorta ([facility]) 10/08/202309/[address] abd Diverticulosis 10/08/2023 [place] 10/26/2019 [place]od[place]) HTN (hypertension) 12/01/2022 Hypertension IgA nephropathy IgA nephropathy determined by biopsy of kidney 10/26/2019 Missed vaccination due to patient refusal 10/08/2023 Has a number of non-scientific based beliefs which interfere with his understanding and acceptance of the medical benefit of vaccination. Nonrheumatic aortic valve stenosis 10/08/2023 Paroxysmal A-fib ([facility]) ([facility]) 08/18/2023 Tobacco abuse 10/08/2023 [2] Past Surgical History: Procedure Laterality Date APPENDECTOMY CARDIAC CATHETERIZATION N/A 10/09/2024 Performed by Bob Watson MD at [facility] Cardiac Cath/EP Lab CARDIAC CATHETERIZATION Bilateral 11/01/2024 Performed by Bob Watson MD at [facility] Cardiac Cath/EP Lab CARDIAC CATHETERIZATION N/A 11/01/2024 Performed by Bob Watson MD at [facility] Cardiac Cath/EP Lab COLONOSCOPY N/A 01/24/2025 Performed by Chadd Davis MD at [facility] ENDOSCOPY FISTULAGRAM (HISTORICAL) Left 09/15/2021 LEFT UPPER ARM HX AV FISTULA CREATION IR EMBOLIZATION 10/14/2024 IR EMBOLIZATION 10/14/2024 [facility] SPECIAL PROCEDURES IR FISTULAGRAM 08/07/2022 IR FISTULAGRAM 08/07/2022 [facility] IR IMAGING TONSILLECTOMY (HISTORICAL) [3] Family [...] 0 min Stress: Stress Concern Present (02/21/2025) [employer] - Occupational Stress Questionnaire Feeling of Stress : To some extent Social Connections: Unknown (02/21/2025) Social Connection and Isolation Panel [NHANES] Frequency of Communication with Friends and Family: More than three times a week Frequency of Social Gatherings with Friends and Family: Patient declined Attends Tenriism Services: Patient declined Active Member of Clubs [...] PA-C 04/09/25 1400 documented in this encounter [facility] 04-09-2025 Hospital Discharg e instructions Yari [...] change or worsen. documented in this encounter [facility] 04-09-2025 Physician Emergen cy department Note [...] to the emergency department via EMS from [facility] for evaluation of hyperkalemia. Patient states [...] who presents to the emergency department from [facility] with concerns for hyperkalemia. Patient [...] signs. FINAL IMPRESSION 1. ESRD on hemodialysis ([facility]) ([facility]) 2. Contusion of dorsum of right hand DISPOSITION Discharge 04/09/2025 01:35:38 PM Shared decision making preformed. PATIENT REFERRED TO: [facility] ED [address] [facility] [phone] As needed, If symptoms worsen (Comment: [...] Date Acute renal failure (ARF) ([facility]) 10/19/2019 Anemia 12/30/2021 Calcification of abdominal aorta ([facility]) 10/08/202309/[address] abd Diverticulosis 10/08/2023 ESRD on hemodialysis ([facility]) ([facility]) 10/26/2019 [place]) HTN (hypertension) 12/01/2022 Hypertension IgA nephropathy IgA nephropathy determined by biopsy of kidney 10/26/2019 Missed vaccination due to patient refusal 10/08/2023 Has a number of non-scientific based beliefs which interfere with his understanding and acceptance of the medical benefit of vaccination. Nonrheumatic aortic valve stenosis 10/08/2023 Paroxysmal A-fib ([facility]) ([facility]) 08/18/2023 Tobacco abuse 10/08/2023 [2] Past Surgical History: Procedure Laterality Date APPENDECTOMY CARDIAC CATHETERIZATION N/A 10/09/2024 Performed by Bob Watson MD at [facility] Cardiac Cath/EP Lab CARDIAC CATHETERIZATION Bilateral 11/01/2024 Performed by Bob Watson MD at [facility] Cardiac Cath/EP Lab CARDIAC CATHETERIZATION N/A 11/01/2024 Performed by Bob Watson MD at [facility] Cardiac Cath/EP Lab COLONOSCOPY N/A 01/24/2025 Performed by Chadd Davis MD at [facility] ENDOSCOPY FISTULAGRAM (HISTORICAL) Left 09/15/2021 LEFT UPPER ARM HX AV FISTULA CREATION IR EMBOLIZATION 10/14/2024 IR EMBOLIZATION 10/14/2024 [facility] SPECIAL PROCEDURES IR FISTULAGRAM 08/07/2022 IR FISTULAGRAM 08/07/2022 [facility] IR IMAGING TONSILLECTOMY (HISTORICAL) [3] Family [...] 0 min Stress: Stress Concern Present (02/21/2025) [employer] [place] [employer] - Occupational Stress Questionnaire Feeling of Stress : To some extent Social Connections: Unknown (02/21/2025) Social Connection and Isolation Panel [NHANES] Frequency of Communication with Friends and Family: More than three times a week Frequency of Social Gatherings with Friends and Family: Patient declined Attends Tenriism Services: Patient declined Active Member of Clubs [...] Year: No Yari Santos PA-C 04/09/[address] [facility] 04-05-2025 Hospital Discharg e instructions Barbara [...] follow-up as recommended. documented in this encounter [facility] 04-05-2025 Nurse Note Patient Name: Jun Snyder Patient : 1965 Acct: [id number] Date of Admission: 04/05/2025 Room/Bed: Code Status: [...] (0) 3 Regular None (Room air) Clear;Diminished [place];Ecchymosis Warm;Dry Soft Present pt consents to dialysis [...] - Before each treatment: Dialysis Machine No.: [id number] Machine Number: [id number] Dialyzer Lot No.: [id number] Tubing Lot Number: [id number] All Connections Secure: Yes Venous Parameters Set: Yes Arterial Parameters Set: Yes NS Bag: Yes Saline Line Double Clamped: Yes Dialyzer: Nipro Prime Volume (mL): 200 mL RO Machine Number: [id number] RO Machine Log Sheet Completed: Yes Machine Alarm Self Test: Completed, Passed (1351) (04/05/25 1351) Air Foam Detector: Tested, Proper Function Extracorporeal Circuit Tested for Integrity: Yes Machine Conductivity: 13.6 Manual Conductivity: 13.6 Manual Ph: 7 Bleach Test (Neg): Yes Bath Temperature: 36 C (96.8 F) Conductivity Meter Serial #: [id number] Machine Functioning Alarm Free? Yes Dialysis Bath: K+ (Potassium): 2 Ca+ (Calcium): 2.5 Na+ (Sodium): 137 HCO3 (Bicarb): 35 Bicarbonate Concentrate Lot No.: [id number] Acid Concentrate Lot No.: [id number] Chlorine Testing - Before each treatment and every 4 hours: Time On: 3 Treatment Goal: 2L Weight Height: 177.8 cm (5' 10") (04/05/25 1015) Weight: 66.7 kg (147 lb) (04/05/251014) BMI (Calculated): 21.09 (04/05/251014) 1st check: less than 0.1 ppm at: [...] 110 600 Yes pt resting, uf removal 18904/05/25 1630 450 mL/min 830 ml/hr -150 mmHg [...] and report given to Primary RN at 7140. Primary RN (First Initial, Last Name, Title): [...] Active Problem List Diagnosis Anemia Paroxysmal A-fib ([facility]) ([facility]) HTN (hypertension) ESRD on hemodialysis ([facility]) ([facility]) IgA nephropathy determined by biopsy of kidney Diverticulosis Nonrheumatic aortic valve stenosis Calcification of abdominal aorta ([facility]) Missed vaccination due to patient refusal Tobacco abuse Alcohol use disorder in remission Atrial flutter, unspecified type ([facility]) RSV (acute bronchiolitis due to respiratory syncytial virus) Aortic stenosis Upper GI bleed S/P AVR Acute hypoxic respiratory failure ([facility]) Acute encephalopathy Pneumoperitoneum Gastric ulceration Severe malnutrition ([facility]) ([facility]) Pleural effusion Peritonitis due to fungus ([facility]) History of abdominal surgery Leg DVT (deep venous thromboembolism), acute, left ([facility]) Ischemic ulcer of toe of left foot, limited to breakdown of skin ([facility]) Tracheostomy dependence ([facility]) Leukocytosis Decubitus ulcer of sacral region, unstageable ([facility]) Pneumonia of both lungs due to methicillin susceptible Staphylococcus aureus (MSSA) ([facility]) Sacral osteomyelitis ([facility]) ([facility]) Acute respiratory failure with hypoxia ([facility]) [J96.01] Tracheostomy care ([facility]) [Z43.0] Pulmonary embolism ([facility]) 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 (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) use of antibiotics Complication of tracheostomy ([facility]) ([facility]) BRBPR (bright red blood per rectum) Hemoptysis SOB (shortness of breath) Moderate malnutrition ([facility]) ([facility]) Shortness of breath [3] [facility] 04-05-2025 Nurse Note Patient Name: Jun Snyder Patient : 1965 Acct: [id number] Date of Admission: 04/05/2025 Room/Bed: Code Status: [...] (0) 3 Regular None (Room air) Clear;Diminished [place];Ecchymosis Warm;Dry Soft Present pt consents to dialysis [...] - Before each treatment: Dialysis Machine No.: [id number] RO Machine Number: [id number] Dialyzer Lot No.: [id number] Tubing Lot Number: [id number] All Connections Secure: Yes Venous Parameters Set: Yes Arterial Parameters Set: Yes NS Bag: Yes Saline Line Double Clamped: Yes Dialyzer: Nipro Prime Volume (mL): 200 mL RO Machine Number: [id number] RO Machine Log Sheet Completed: Yes Machine Alarm Self Test: Completed, Passed (1351) (04/05/25 1351) Air Foam Detector: Tested, Proper Function Extracorporeal Circuit Tested for Integrity: Yes Machine Conductivity: 13.6 Manual Conductivity: 13.6 Manual Ph: 7 Bleach Test (Neg): Yes Bath Temperature: 36 C (96.8 F) Conductivity Meter Serial #: [id number] Machine Functioning Alarm Free? Yes Dialysis Bath: K+ (Potassium): 2 Ca+ (Calcium): 2.5 Na+ (Sodium): 137 HCO3 (Bicarb): 35 Bicarbonate Concentrate Lot No.: [id number] Acid Concentrate Lot No.: [id number] Chlorine Testing - Before each treatment and [...] and report given to Primary RN at 1790. Primary RN (First Initial, Last Name, Title): [...] Active Problem List Diagnosis Anemia Paroxysmal A-fib ([facility]) ([facility]) HTN (hypertension) [place] ([facility]) IgA nephropathy determined by biopsy of kidney Diverticulosis Nonrheumatic aortic valve stenosis Calcification of abdominal aorta ([facility]) Missed vaccination due to patient refusal Tobacco abuse Alcohol use disorder in remission Atrial flutter, unspecified type ([facility]) RSV (acute bronchiolitis due to respiratory syncytial virus) Aortic stenosis Upper GI bleed S/P AVR Acute hypoxic respiratory failure ([facility]) Acute encephalopathy Pneumoperitoneum Gastric ulceration Severe malnutrition ([facility]) ([facility]) Pleural effusion Peritonitis due to fungus ([facility]) History of abdominal surgery Leg DVT (deep venous thromboembolism), acute, left ([facility]) Ischemic ulcer of toe of left foot, limited to breakdown of skin ([facility]) Tracheostomy dependence ([facility]) Leukocytosis Decubitus ulcer of sacral region, unstageable ([facility]) Pneumonia of both lungs due to methicillin susceptible Staphylococcus aureus (MSSA) ([facility]) Sacral osteomyelitis (CMS/HCC) ([facility]) Acute respiratory failure with hypoxia ([facility]) [J96.01] Tracheostomy care ([facility]) [Z43.0] Pulmonary embolism ([facility]) FPC (current) use of antibiotics Complication of tracheostomy (CMS/HCC) ([facility]) BRBPR (bright red blood per rectum) Hemoptysis SOB (shortness of breath) Moderate malnutrition ([facility]) ([facility]) Shortness of breath [3] documented in this encounter [facility] 04-05-2025 Emergency department Note Dialysis at bedside. [facility] 04-05-2025 Emergency department Note Dialysis at [...] provider for clarification. Dieter Villegas MD 04/05/25 2913 Pt here to the ER via EMS [...] and get vitals. documented in this encounter [facility] 04-05-2025 Miscellaneous Notes Formattin g of this note might be different from the original. Noted Spoke with patient's nurse from [facility]. Patient's nurse stated will need to cancel today's appointment. Nurse stated Patient was sent to [facility] for tachycardia. Nurse stated can not complete dialysis with patient's tachycardia. Nurse stated Sabino who scheduled appointments will call the office at a later time to reschedule patient's appointment. FYI to provider. documented in this encounter [facility] 04-05-2025 Telephone encount er Note Noted [facility] Work Phone: 04-05-2025 Emergency department Note Pt has no complaints at this time. [facility] 04-05-2025 Emergency department Triage note Pt [...] to hook pt up and get vitals. [facility] 04-05-2025 Physician Emergen cy department Note [...] provider for clarification. Dieter Villegas MD 04/05/25 1327 [facility] 04-05-2025 Telephone encount er Note Spoke with patient's nurse from [facility]. Patient's nurse stated will need to cancel today's appointment. Nurse stated Patient was sent to [facility] for tachycardia. Nurse stated can not complete dialysis with patient's tachycardia. Nurse stated Sabino who scheduled appointments will call the office at a later time to reschedule patient's appointment. FYI to provider. [facility] 03-26-2025 Telephone encount er Note 3rd attempt unable to speak to Sabino she's not in the office at them moment. Left message to call the office back to schedule [facility] 03-26-2025 Miscellaneous Notes Formattin g of [...] this? Thank you documented in this encounter [facility] 03-26-2025 Telephone encount er Note Sabino has been notified the visit can not be virtual [facility] 03-26-2025 Miscellaneous Notes Formattin g of this note might be different from the original. Sabino has been notified the visit can not be virtual Name of Caller: Bobbi Delvalle Beatrice Contact Reason for Appointment: Change 04/05/25 hospital follow up to a vv. Please call and advise. Office Name: [facility] Cindy documented in this encounter [facility] 03-26-2025 Telephone encount er Note Name of Caller: Bobbi Delvalle Beatrice Contact Reason for Appointment: Change 04/05/25 hospital follow up to a vv. Please call and advise. Office Name: [facility] [place] C[place] [facility] 03-21-2025 Nurse Note Educated pt on importance of prescribed medications. Pt still refused. [facility] 03-21-2025 Nurse Note Educated pt on importance of prescribed medications. Pt still refused. Patient Name: Jun Snyder Patient : 1965 Acct: [id number] Date of Admission: 03/13/2025 Room[facility]Bed: [facility] A Code Status: Full Code Allergies: [...] - Before each treatment: Dialysis Machine No.: [id number] RO Machine Number: [id number] Dialyzer Lot No.: [id number] Tubing Lot Number: [id number] All Connections Secure: Yes Venous Parameters Set: Yes Arterial Parameters Set: Yes NS Bag: Yes Saline Line Double Clamped: Yes Dialyzer: Nipro Prime Volume (mL): 200 mL RO Machine Number: [id number] RO Machine Log Sheet Completed: Yes Machine Alarm Self Test: Completed, Passed (03/20/25 1145) Air Foam Detector: Tested, Proper Function, pH Reading Extracorporeal Circuit Tested for Integrity: Yes Machine Conductivity: 13.8 Manual Conductivity: 13.8 Manual Ph: 7 Bleach Test (Neg): Yes Bath Temperature: 36 C (96.8 F) Conductivity Meter Serial #: [id number] Machine Functioning Alarm Free? Yes Dialysis Bath: K+ (Potassium): 2 Ca+ (Calcium): 2.5 Na+ (Sodium): 135 HCO3 (Bicarb): 35 Chlorine Testing - Before each treatment and every 4 hours: Time On: 1216 Time Off: 1516 Treatment Goal: 2L Weight Height: 177.8 cm (5' 10") (03/14/25 1617) Weight: 69.8 kg (153 lb 12.8 oz) (03/20/25421) BMI (Calculated): 22.07 (03/20/25 042) 1st check: less than 0.1 ppm at: [...] Other (Comment) (to inform patient arrival from [facility] emergency room and need for orders) Provider [...] Active Problem List Diagnosis Anemia Paroxysmal A-fib ([facility]) ([facility]) HTN (hypertension) ESRD on hemodialysis ([facility]) ([facility]) IgA nephropathy determined by biopsy of kidney Diverticulosis Nonrheumatic aortic valve stenosis Calcification of abdominal aorta ([facility]) Missed vaccination due to patient refusal Tobacco abuse Alcohol use disorder in remission Atrial flutter, unspecified type ([facility]) RSV (acute bronchiolitis due to respiratory syncytial virus) Aortic stenosis Upper GI bleed S/P AVR Acute hypoxic respiratory failure ([facility]) Acute encephalopathy Pneumoperitoneum Gastric ulceration Severe malnutrition ([facility]) ([facility]) Pleural effusion Peritonitis due to fungus ([facility]) History of abdominal surgery Leg DVT (deep venous thromboembolism), acute, left ([facility]) Ischemic ulcer of toe of left foot, limited to breakdown of skin ([facility]) Tracheostomy dependence (HCC) Leukocytosis Decubitus ulcer of sacral region, unstageable (HCC) Pneumonia of both lungs due to methicillin susceptible Staphylococcus aureus (MSSA) (HCC) Sacral osteomyelitis (CMS/HCC) (HCC) Acute respiratory failure with hypoxia ([facility]) [J96.01] Tracheostomy care ([facility]) [Z43.0] Pulmonary embolism ([facility]) 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 (current) use of antibiotics Complication of tracheostomy (CMS/HCC) (HCC) BRBPR (bright red blood per rectum) Hemoptysis SOB (shortness of breath) Moderate malnutrition (CMS/HCC) ([facility]) [3] heparin, 5-30 Units/kg/hr, Last Rate: 20 Units/kg/hr (03/20/25 1328) Wound vac suction failing-pt requesting wound vac removed for now. Black foam dressing removed and wound packed with saline-soaked gauze covered with DSD Pt adamantly refusing telemetry at this time, ripped off monitor and threw to the floor Patient Name: Jun Snyder Patient : 1965 Acct: [id number] Date of Admission: 03/13/2025 Room/Bed: [facility] A Code Status: Full Code Allergies: [...] 10/27/2019 0545 CALCIUM 9.6 03/17/202546 PHOS 2.6 02/23/2025 0032 IV Drips and Rate/Dose Continuous Meds[3] Safety - Before each treatment: Dialysis Machine No.: [id number] RO Machine Number: [id number] Dialyzer Lot No.: [id number] Tubing Lot Number: [id number] All Connections Secure: Yes Venous Parameters Set: Yes Arterial Parameters Set: Yes NS Bag: Yes Saline Line Double Clamped: Yes Dialyzer: Nipro Prime Volume (mL): 200 mL RO Machine Number: [id number] RO Machine Log Sheet Completed: Yes Machine Alarm Self Test: Completed, Passed (03/17/25802) Air Foam Detector: Tested, Proper Function, pH Reading Extracorporeal Circuit Tested for Integrity: Yes Machine Conductivity: 13.6 Manual Conductivity: 13.6 Manual Ph: 7 Bleach Test (Neg): Yes Bath Temperature: 36 C (96.8 F) Conductivity Meter Serial #: [id number] Machine Functioning Alarm Free? Yes Dialysis Bath: [...] Other (Comment) (to inform patient arrival from [facility] emergency room and need for orders) Provider [...] Active Problem List Diagnosis Anemia Paroxysmal A-fib ([facility]) ([facility]) HTN (hypertension) ESRD on hemodialysis ([facility]) ([facility]) IgA nephropathy determined by biopsy of kidney Diverticulosis Nonrheumatic aortic valve stenosis Calcification of abdominal aorta ([facility]) Missed vaccination due to patient refusal Tobacco abuse Alcohol use disorder in remission Atrial flutter, unspecified type ([facility]) RSV (acute bronchiolitis due to respiratory syncytial virus) Aortic stenosis Upper GI bleed S/P AVR Acute hypoxic respiratory failure ([facility]) Acute encephalopathy Pneumoperitoneum Gastric ulceration Severe malnutrition ([facility]) ([facility]) Pleural effusion Peritonitis due to fungus ([facility]) History of abdominal surgery Leg DVT (deep venous thromboembolism), acute, left ([facility]) Ischemic ulcer of toe of left foot, limited to breakdown of skin ([facility]) Tracheostomy dependence ([facility]) Leukocytosis Decubitus ulcer of sacral region, unstageable ([facility]) Pneumonia of both lungs due to methicillin susceptible Staphylococcus aureus (MSSA) ([facility]) Sacral osteomyelitis ([facility]) ([facility]) Acute respiratory failure with hypoxia ([facility]) [J96.01] Tracheostomy care ([facility]) [Z43.0] Pulmonary embolism ([facility]) FPC (current) use of antibiotics Complication of tracheostomy (CMS/HCC) (HCC) BRBPR (bright red blood per rectum) Hemoptysis SOB (shortness of breath) Moderate malnutrition (CMS/HCC) (HCC) [3] heparin, 5-30 Units/kg/hr Patient Name: Jun Snyder Patient : 1965 Acct: [id number] Date of Admission: 03/13/2025 Room/Bed: [facility] A Code Status: Full Code Allergies: [...] - Before each treatment: Dialysis Machine No.: [id number] Machine Number: [id number] Dialyzer Lot No.: [id number] Tubing Lot Number: [id number] All Connections Secure: Yes Venous Parameters Set: Yes Arterial Parameters Set: Yes NS Bag: Yes Saline Line Double Clamped: Yes Dialyzer: Nipro Prime Volume (mL): 200 mL RO Machine Number: [id number] RO Machine Log Sheet Completed: Yes Machine Alarm Self Test: Completed, Passed (03/15/25 1215) Air Foam Detector: Tested, Proper Function, pH Reading Extracorporeal Circuit Tested for Integrity: Yes Machine Conductivity: 13.8 Manual Conductivity: 13.7 Manual Ph: 7 Bleach Test (Neg): Yes Bath Temperature: 36 C (96.8 F) Conductivity Meter Serial #: [id number] Machine Functioning Alarm Free? Yes Dialysis Bath: [...] Other (Comment) (to inform patient arrival from [facility] emergency room and need for orders) Provider [...] Active Problem List Diagnosis Anemia Paroxysmal A-fib ([facility]) ([facility]) HTN (hypertension) ESRD on hemodialysis ([facility]) ([facility]) IgA nephropathy determined by biopsy of kidney Diverticulosis Nonrheumatic aortic valve stenosis Calcification of abdominal aorta ([facility]) Missed vaccination due to patient refusal Tobacco abuse Alcohol use disorder in remission Atrial flutter, unspecified type ([facility]) RSV (acute bronchiolitis due to respiratory syncytial virus) Aortic stenosis Upper GI bleed S/P AVR Acute hypoxic respiratory failure ([facility]) Acute encephalopathy Pneumoperitoneum Gastric ulceration Severe malnutrition ([facility]) ([facility]) Pleural effusion Peritonitis due to fungus ([facility]) History of abdominal surgery Leg DVT (deep venous thromboembolism), acute, left ([facility]) Ischemic ulcer of toe of left foot, limited to breakdown of skin ([facility]) Tracheostomy dependence ([facility]) Leukocytosis Decubitus ulcer of sacral region, unstageable ([facility]) Pneumonia of both lungs due to methicillin susceptible Staphylococcus aureus (MSSA) ([facility]) Sacral osteomyelitis ([facility]) ([facility]) Acute respiratory failure with hypoxia ([facility]) [J96.01] Tracheostomy care ([facility]) [Z43.0] Pulmonary embolism ([facility]) FPC (current) use of antibiotics Complication of tracheostomy ([facility]) ([facility]) BRBPR (bright red blood per rectum) Hemoptysis SOB (shortness of breath) Moderate malnutrition ([facility]) ([facility]) [3] Wound Care consulted for Pressure Injury Prevention. Pt's Kee score= 14 on 03/13 Pt's pressure points assessed. Pt's Heels, Back, Elbows, Occiput and ears all intact. [place] and healed area noted to occiput. Pt moving lower extremities well in bed against gravity. Pt currently followed by Wound SUPERVISOR [facility] group for wounds to left toes 1-4 and sacrum with wound vac in place. For left toes, sacrum, and sacral wound vac assessments and treatment plan, please see Wound/Ostomy SUPERVISOR [facility] progress notes. Instructed pt on pressure injury prevention and importance of turning/postioning every 2hrs while in bed and every 15 min while sitting in chair. Instructed on use and care of waffle chair cushion. Verbalized understanding. Prevention Measures in place, including: [place] sheet with pillows/wedges, Heels elevated off bed on pillows, Zinc/Moisture Barrier ointment (obtained), Waffle chair cushion (obtained for pt). Skin Care precaution order set in place. Dietitian consult order placed d/t wounds. PT/OT consult in place. Will continue to follow pt. Please Vocera for any questions or concerns. Yari Pelletier RN Patient Name: Jun Snyder Patient : 1965 Acct: [id number] Date of Admission: 03/13/2025 Room[facility]Bed: [facility] A Code Status: Full Code Allergies: [...] - Before each treatment: Dialysis Machine No.: [id number] RO Machine Number: [id number] Dialyzer Lot No.: [id number] Tubing Lot Number: [id number] All Connections Secure: Yes Venous Parameters Set: Yes Arterial Parameters Set: Yes NS Bag: Yes Saline Line Double Clamped: Yes Dialyzer: Nipro Prime Volume (mL): 200 mL RO Machine Number: [id number] RO Machine Log Sheet Completed: Yes Machine Alarm Self Test: Completed, Passed (03/14/25 1135) Air Foam Detector: Tested, Proper Function, pH Reading Extracorporeal Circuit Tested for Integrity: Yes Machine Conductivity: 13.7 Manual Conductivity: 13.6 Manual Ph: 7 Bleach Test (Neg): Yes Bath Temperature: 36 C (96.8 F) Conductivity Meter Serial #: [id number] Machine Functioning Alarm Free? Yes Dialysis Bath: [...] Other (Comment) (to inform patient arrival from [facility] emergency room and need for orders) Provider Name: dr sanon Provider Role: Attending physician Method of Communication: Secure chat Response: At bedside Provider Role: Attending physician Method of Communication: Secure chat Response: At bedside Handoff complete and report given to Primary RN at 3439. 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 03-21-2025 Note Formatting of this n ote might be different from the original. MAR, Labs & Discharge med list transmitted to [facility] Return - Renick Beatrice via [facility] per [facility] request. [facility] 03-21-2025 Note Formatting of this n ote might be different from the original. MAR, Labs & Discharge med list transmitted to [facility] Return [facility] via [facility] per [facility] request. [facility] 03-21-2025 Miscellaneous Notes Formattin g of this note might be different from the original. MAR, Labs & Discharge med list transmitted to [facility] via [facility] per TCC request. Transport requested in Roundtrip. Awaiting time confirmation. Confirmed pickup time of 5:00PM by transport company [employer] at phone number . Location of facility drop off is [facility]. Facility notified via [employer], Kaity Rivera notified on secure chat. Care Management Progress Note Short Medical why still here: Heparin gtt stopped today. . INR 2.9 today. Getting Coumadin. Refusing to work with therapy. They would like to skill him if able. Planned Discharge Disposition: [facility]Residential Care Barriers/Today we still Wait: Administering IV [...] Coumadin. INR 1.9 today Planned Discharge Disposition: [facility]Residential Care Barriers/Today we still Wait: Clinical stability [...] When stable plan is to return to [facility].. . Length of Stay (Days): 6 GMLOS: [...] When stable is a bed hold at [facility]. . Length of Stay (Days): 2 GMLOS: [...] therapies are following. Wants to return to [facility]. Is a bed hold, but if they can skill him they would like to.. Length of Stay (Days): 1 GMLOS: No GMLOS Documented Referral placed to [facility] Return - [facility] via [facility] per TCC request. Await review and response regarding ability to accept. TCC notified. Problem: Knowledge Deficit Goal: Patient/family/caregiver demonstrates understanding of disease process, treatment plan, medications, and discharge instructions Outcome: Progressing Problem: Potential for Compromised Skin Integrity Goal: Skin Integrity is Maintained or Improved Outcome: Progressing documented in this encounter [facility] 03-21-2025 Note Formatting of this n ote might be different from the original. Transport requested in Roundtrip. Awaiting time confirmation. Confirmed pickup time of 5:00PM by transport company [employer] at phone number . Location of facility drop off is [facility]. Facility notified via Kaity George notified on secure chat. [facility] 03-21-2025 Note Formatting of this n ote might be different from the original. Transport requested in Roundtrip. Awaiting time confirmation. Confirmed pickup time of 5:00PM by transport company [employer] Mitchell at phone number . Location of facility drop off is [facility]. Facility notified via [employer] notified on secure chat. [facility] 03-21-[address] [facility] Hospital course Narrative Discharge Summary [...] Klebsiella pneumonia with lung abscess presented to [facility] with worsening shortness of breath. He [...] Complexity: follow up within 7-14 calendar days (32956) [x] Severe Complexity: follow up within 7 calendar days (78355) FOLLOW UP TESTING, PENDING RESULTS OR REFERRALS AT TRANSITIONAL CARE VISIT: [] Yes [x] No PENDING STUDIES: None DISPOSITION: [facility] Facility (Non-Skilled) FACILITY/HOME CARE AGENCY NAME: [facility] [place] [id number] Follow up INSTRUCTIONS TO MA/SW: Please call [...] 03/21/2025, 12:07 PM documented in this encounter [facility] 03-21-2025 History of Presen t illness Narrative Patient quit smoking in September. Accepting of handout with contact information for additional support to remain quit if neccesary. Hospitalist Progress Note Subjective: Admit Date: 03/13/2025 PCP: Leilani Han Room#: [id number] A Chief complaint: Shortness of breath Brief Hospital course: Jun is a 59 y.o. male with past medical history of hypertension, IgA nephropathy, ESRD on HD, CAD, history of CABG, history of intracranial bleed, paroxysmal A-fib aortic stenosis, s/p mechanical valve replacement recent admission here from 02/20-03/05 for hemoptysis due to Klebsiella pneumonia with lung abscess presented to [facility] with worsening shortness of breath. He [...] MD Division of Hospital Medicine Inpatient Medical Services/[facility] [1] Past Medical History: Diagnosis Date Acute renal failure (ARF) ([facility]) 10/19/2019 Anemia 12/30/2021 Calcification of abdominal aorta ([facility]) 10/08/202309/[address] abd Diverticulosis 10/08/2023 [place]) 10/26/2019 [place]) HTN (hypertension) 12/01/2022 Hypertension IgA nephropathy IgA nephropathy determined by biopsy of kidney 10/26/2019 Missed vaccination due to patient refusal 10/08/2023 Has a number of non-scientific based beliefs which interfere with his understanding and acceptance of the medical benefit of vaccination. Nonrheumatic aortic valve stenosis 10/08/2023 Paroxysmal A-fib ([facility]) ([facility]) 08/18/2023 Tobacco abuse 10/08/2023 [2] Lidocaine, 1 [...] Date Acute renal failure (ARF) ([facility]) 10/19/2019 Anemia 12/30/2021 Calcification of abdominal aorta ([facility]) 10/08/202309/[address] abd Diverticulosis 10/08/2023 [place]) 10/26/2019 [place]) HTN (hypertension) 12/01/2022 Hypertension IgA nephropathy IgA nephropathy determined by biopsy of kidney 10/26/2019 Missed vaccination due to patient refusal 10/08/2023 Has a number of non-scientific based beliefs which interfere with his understanding and acceptance of the medical benefit of vaccination. Nonrheumatic aortic valve stenosis 10/08/2023 Paroxysmal A-fib ([facility]) ([facility]) 08/18/2023 Tobacco abuse 10/08/2023 Images from the original note were not included. PHYSICAL THERAPY [facility] Name/MRN: Jair Snyder ([id number]) Date: 03/21/2025 Chart review completed this date. [...] permits. Cecy Pierre PTA Cosigned by Darryn Tay, PT at 03/21/2025 2:58 PM EDT [facility] Anticoagulation Management Service ([facility]) Inpatient Warfarin [...] management once discharged from SNF. Fatuma Odonnell RP, PharmD [facility] is available daily [phone] via [employer]where [employer]. If no response on Anywhere [employer] Go then please page [phone]. [1] Past Medical History: Diagnosis Date Acute renal failure (ARF) ([facility]) 10/19/2019 Anemia 12/30/2021 Calcification of abdominal aorta ([facility]) 10/08/202309/[address] abd Diverticulosis 10/08/2023 ESRD on hemodialysis ([facility]) ([facility]) 10/26/2019 [place]) HTN (hypertension) 12/01/2022 Hypertension IgA nephropathy IgA nephropathy determined by biopsy of kidney 10/26/2019 Missed vaccination due to patient refusal 10/08/2023 Has a number of non-scientific based beliefs which interfere with his understanding and acceptance of the medical benefit of vaccination. Nonrheumatic aortic valve stenosis 10/08/2023 Paroxysmal A-fib ([facility]) ([facility]) 08/18/2023 Tobacco abuse 10/08/2023 Nutrition Assessment Type [...] Klebsiella pneumonia with lung abscess presented to [facility] with worsening shortness of breath. He [...] Chocolate Ensure Plus High Protein 03/14/25 18003/13/25 174 Adult diet Regular; Low Sodium (2 [...] (Aug 2024) % Weight Change (Calculated): -28.6 [place] Body Weight (lbs) (Calculated): 166 lbs [place] Body Weight (Kg) (Calculated): 75 kg % [place] Body Weight (Calculated): 88.6 % BMI (kg/m2) [...] Too soon to determine Yasemin Ceron MS, NIKKY, LD Contact: or [employer] Chat (dial *[phone] from hospital phone) [1] Lidocaine, 1 patch, Topical, Daily metoprolol tartrate, 50 mg, Oral, BID pantoprazole, 40 mg, Oral, BID AC sevelamer carbonate, 800 mg, Oral, TID WC sodium zirconium cyclosilicate, 5 g, Oral, Daily [2] heparin, 5-30 Units/kg/hr, Last Rate: 20 Units/kg/hr (03/20/25 1643) [facility] Anticoagulation Management Service ([facility]) Inpatient Warfarin [...] SNF. Laura BenítezD candidate 2025, staffed with Laura SlaughterD, [facility] is available daily [phone] via [employer]where [employer]. If no response on [employer] Chat then please page [phone]. [1] Past Medical History: Diagnosis Date Acute renal failure (ARF) ([facility]) 10/19/2019 Anemia 12/30/2021 Calcification of abdominal aorta ([facility]) 10/08/202309/[address] abd Diverticulosis 10/08/2023 ESRD on hemodialysis ([facility]) ([facility]) 10/26/2019 [place]) HTN (hypertension) 12/01/2022 Hypertension IgA nephropathy IgA nephropathy determined by biopsy of kidney 10/26/2019 Missed vaccination due to patient refusal 10/08/2023 Has a number of non-scientific based beliefs which interfere with his understanding and acceptance of the medical benefit of vaccination. Nonrheumatic aortic valve stenosis 10/08/2023 Paroxysmal A-fib ([facility]) (HCC) 08/18/2023 Tobacco abuse 10/08/2023 Cosigned by Fatuma Odonnell RPh at 03/20/2025 10:38 AM EDT Hospitalist Progress Note Subjective: Admit Date: 03/13/2025 PCP: Leilani Han Room#: [id number] A Chief complaint: Shortness of breath Brief Hospital course: Jun is a 59 y.o. male with past medical history of hypertension, IgA nephropathy, ESRD on HD, CAD, history of CABG, history of intracranial bleed, paroxysmal A-fib aortic stenosis, s/p mechanical valve replacement recent admission here from 02/20-03/05 for hemoptysis due to Klebsiella pneumonia with lung abscess presented to [facility] with worsening shortness of breath. He [...] MD Division of Hospital Medicine Inpatient Medical Services/[facility] [1] Past Medical History: Diagnosis Date Acute renal failure (ARF) ([facility]) 10/19/2019 Anemia 12/30/2021 Calcification of abdominal aorta ([facility]) 10/08/202309/[address] abd Diverticulosis 10/08/2023 [place] [place] [place]) 10/26/2019 [place]) HTN (hypertension) 12/01/2022 Hypertension IgA nephropathy IgA nephropathy determined by biopsy of kidney 10/26/2019 Missed vaccination due to patient refusal 10/08/2023 Has a number of non-scientific based beliefs which interfere with his understanding and acceptance of the medical benefit of vaccination. Nonrheumatic aortic valve stenosis 10/08/2023 Paroxysmal A-fib ([facility]) ([facility]) 08/18/2023 Tobacco abuse 10/08/2023 [2] Lidocaine, 1 [...] Date Acute renal failure (ARF) ([facility]) 10/19/2019 Anemia 12/30/2021 Calcification of abdominal aorta ([facility]) 10/08/202309/[address] abd Diverticulosis 10/08/2023 [place]) 10/26/2019 [place]) HTN (hypertension) 12/01/2022 Hypertension IgA nephropathy IgA nephropathy determined by biopsy of kidney 10/26/2019 Missed vaccination due to patient refusal 10/08/2023 Has a number of non-scientific based beliefs which interfere with his understanding and acceptance of the medical benefit of vaccination. Nonrheumatic aortic valve stenosis 10/08/2023 Paroxysmal A-fib [place] ([facility]) 08/18/2023 Tobacco abuse 10/08/2023 [facility] Anticoagulation Management Service ([facility]) Inpatient Warfarin [...] 1.7 2.5 mg 03/14 --- 1.5 mg 6/17 1.7 3 mg Assessment/Plan: 1. Subtherapeutic INR. During last admission, patient required much higher dosing than reported home regimen. Still subtherapeutic despite two 5 mg doses. Will increase to 7.5 mg for 1 dose and continue heparin continuous infusion. 2. Monitor for s/s of bleeding and drug interactions. Will adjust dose accordingly. 3. Warfarin is followed by [facility] outpatient. [facility] will manage inpatient and take over management once discharged from SNF. Michael Koehler PharmD candidate 2025, staffed with Fatuma Odonnell PharmD, [facility] is available daily [phone] via [employer]where [employer]. If no response on [employer] Chat then please page [phone]. [1] Past Medical History: Diagnosis Date Acute renal failure (ARF) ([facility]) 10/19/2019 Anemia 12/30/2021 Calcification of abdominal aorta ([facility]) 10/08/202309/[address] abd Diverticulosis 10/08/2023 [place]) 10/26/2019 [place]od[place]) HTN (hypertension) 12/01/2022 Hypertension IgA nephropathy IgA nephropathy determined by biopsy of kidney 10/26/2019 Missed vaccination due to patient refusal 10/08/2023 Has a number of non-scientific based beliefs which interfere with his understanding and acceptance of the medical benefit of vaccination. Nonrheumatic aortic valve stenosis 10/08/2023 Paroxysmal A-fib ([facility]) ([facility]) 08/18/2023 Tobacco abuse 10/08/2023 Cosigned by Fatuma Odonnell RPh at 03/19/2025 2:39 PM EDT Images from the original note were not included. [facility] Wound Care/NPWT Progress Note Jun Snyder [...] apply Betadine and allow to dry, leave ADMITTING CLERK daily and PRN Centrella Pro Plus bed Reposition q2hrs Incontinent checks q2hrs Nutritional support Wound Care to follow Recommend to follow up at [facility] wound care center after hospital discharge. [...] CT abd Diverticulosis 10/08/2023 [place]) 10/26/2019 [place]od[place] [place]) HTN (hypertension) 12/01/2022 Hypertension IgA nephropathy IgA nephropathy determined by biopsy of kidney 10/26/2019 Missed vaccination due to patient refusal 10/08/2023 Has a number of non-scientific based beliefs which interfere with his understanding and acceptance of the medical benefit of vaccination. Nonrheumatic aortic valve stenosis 10/08/2023 Paroxysmal A-fib [place]) 08/18/2023 Tobacco abuse 10/08/2023 [2] Past Surgical History: Procedure Laterality Date APPENDECTOMY CARDIAC CATHETERIZATION N/A 10/09/2024 Performed by Bob Watson MD at [facility] Cardiac Cath/EP Lab CARDIAC CATHETERIZATION Bilateral 11/01/2024 Performed by Bob Watson MD at [facility] Cardiac Cath/EP Lab CARDIAC CATHETERIZATION N/A 11/01/2024 Performed by Bob Watson MD at [facility] Cardiac Cath/EP Lab COLONOSCOPY N/A 01/24/2025 Performed by Chadd Davis MD at [facility] ENDOSCOPY FISTULAGRAM (HISTORICAL) Left 09/15/2021 LEFT UPPER ARM HX AV FISTULA CREATION IR EMBOLIZATION 10/14/2024 IR EMBOLIZATION 10/14/2024 [facility] SPECIAL PROCEDURES IR FISTULAGRAM 08/07/2022 IR FISTULAGRAM [...] with Shortness of Breath Pt arrived from longterm via EMS. Pt was starting dialysis and [...] Klebsiella pneumonia with lung abscess presented to [facility] with worsening shortness of breath. He [...] in upper abdomen He was transferred from [facility] to [facility] due to bed availability Nephrology consulted, [...] 200 ml LABS: CBC: Recent Labs 03/17/254603/18/2515803/19/25 075 WBC 6.7 7.6 7.8 RBC 3.31* 3.03* [...] 10 8 LIVER PROFILE: Recent Labs 03/17/254603/18/2515803/19/25 0752 AST 54* 50* 52* ALT 15 [...] Date -1 to 2 days - Location -[facility] - Pending the following -clinical course, subtherapeutic INR, on bridging with heparin drip Total time spent (which include face to face and non face to face encounters) : 38.5 minutes Extended Emergency Contact Information Primary Emergency Contact: Omar Snyder Mobile Relation: Child Secondary Emergency Contact: Toma Mcneil Mobile Relation: Partner Barb Dawkins MD Division of Hospital Medicine Inpatient Medical Services/[facility] [1] Past Medical History: Diagnosis Date Acute renal failure (ARF) ([facility]) 10/19/2019 Anemia 12/30/2021 Calcification of abdominal aorta (HCC) 10/08/202309/[address] abd Diverticulosis 10/08/2023 ESRD on hemodialysis ([facility]) ([facility]) 10/26/2019 Hemodialysis patient ([facility]) ([facility]) HTN (hypertension) 12/01/2022 Hypertension IgA nephropathy IgA nephropathy determined by biopsy of kidney 10/26/2019 Missed vaccination due to patient refusal 10/08/2023 Has a number of non-scientific based beliefs which interfere with his understanding and acceptance of the medical benefit of vaccination. Nonrheumatic aortic valve stenosis 10/08/2023 Paroxysmal A-fib [place]) 08/18/2023 Tobacco abuse 10/08/2023 [2] Lidocaine, 1 [...] Date Acute renal failure (ARF) ([facility]) 10/19/2019 Anemia 12/30/2021 Calcification of abdominal aorta ([facility]) 10/08/202309/[address] abd Diverticulosis 10/08/2023 [place] hemodialysis [place]) 10/26/2019 [place]od[place]) HTN (hypertension) 12/01/2022 Hypertension IgA nephropathy IgA nephropathy determined by biopsy of kidney 10/26/2019 Missed vaccination due to patient refusal 10/08/2023 Has a number of non-scientific based beliefs which interfere with his understanding and acceptance of the medical benefit of vaccination. Nonrheumatic aortic valve stenosis 10/08/2023 Paroxysmal A-fib [place]) 08/18/2023 Tobacco abuse 10/08/2023 Nephrology Progress Note [...] 102.1* 100.3* PLT 407 333 Recent Labs 03/17/257 03/18/25 0159 NA 141 139 K 3.9 [...] sacral wound. Wellington Nicole MD' Please call [phone] or message me through [employer] with any questions or concerns. Nephrology Progress [...] 100.3* PLT [phone] Recent Labs 03/16/2515403/17/254603/18/25 015 NA 139 141 139 K 4.1 [...] sacral wound. Wellington Nicole MD' Please call [phone] or message me through [employer] with any questions or concerns. Hospitalist Progress Note Subjective: Admit Date: 03/13/2025 PCP: Leilani Han Room#: [id number]/[id number] A Chief Complaint Patient presents with Shortness of Breath Pt arrived from longterm via EMS. Pt was starting dialysis and [...] Klebsiella pneumonia with lung abscess presented to [facility] with worsening shortness of breath. He [...] in upper abdomen He was transferred from [facility] to [facility] due to bed availability Nephrology consulted, [...] Date -1 to 2 days - Location -[facility] - Pending the following -clinical course Total time spent (which include face to face and non face to face encounters) : 38 minutes Extended Emergency Contact Information Primary Emergency Contact: Omar Snyder Mobile Relation: Child Secondary Emergency Contact: Toma Mcneil Mobile Relation: Partner Barb Dawkins MD Division of Hospital Medicine Inpatient Medical Services/[facility] [1] Past Medical History: Diagnosis Date Acute renal failure (ARF) ([facility]) 10/19/2019 Anemia 12/30/2021 Calcification of abdominal aorta ([facility]) 10/08/202309/[address] abd Diverticulosis 10/08/2023 [place]) 10/26/2019 [place]) HTN (hypertension) 12/01/2022 Hypertension IgA nephropathy IgA nephropathy determined by biopsy of kidney 10/26/2019 Missed vaccination due to patient refusal 10/08/2023 Has a number of non-scientific based beliefs which interfere with his understanding and acceptance of the medical benefit of vaccination. Nonrheumatic aortic valve stenosis 10/08/2023 Paroxysmal A-fib ([facility]) ([facility]) 08/18/2023 Tobacco abuse 10/08/2023 [2] Lidocaine, 1 [...] Date Acute renal failure (ARF) ([facility]) 10/19/2019 Anemia 12/30/2021 Calcification of abdominal aorta ([facility]) 10/08/202309/[address] abd Diverticulosis 10/08/2023 [place]) 10/26/2019 [place] [place]) HTN (hypertension) 12/01/2022 Hypertension IgA nephropathy IgA nephropathy determined by biopsy of kidney 10/26/2019 Missed vaccination due to patient refusal 10/08/2023 Has a number of non-scientific based beliefs which interfere with his understanding and acceptance of the medical benefit of vaccination. Nonrheumatic aortic valve stenosis 10/08/2023 Paroxysmal A-fib [place] ([facility]) 08/18/2023 Tobacco abuse 10/08/2023 [facility] Anticoagulation Management Service ([facility]) Inpatient Warfarin [...] dose accordingly. 3. Warfarin is followed by [facility] outpatient. [facility] will manage inpatient and take over management once discharged from [facility]. Darya Mireles RPh, PharmD, BCPS [facility] is available daily [phone] via [employer]. If no response on [employer] then please page [phone]. [1] Past Medical History: Diagnosis Date Acute renal failure (ARF) ([facility]) 10/19/2019 Anemia 12/30/2021 Calcification of abdominal aorta ([facility]) 10/08/202309/[address] abd Diverticulosis 10/08/2023 ESRD on hemodialysis ([facility]) ([facility]) 10/26/2019 [place]) HTN (hypertension) 12/01/2022 Hypertension IgA nephropathy IgA nephropathy determined by biopsy of kidney 10/26/2019 Missed vaccination due to patient refusal 10/08/2023 Has a number of non-scientific based beliefs which interfere with his understanding and acceptance of the medical benefit of vaccination. Nonrheumatic aortic valve stenosis 10/08/2023 Paroxysmal A-fib ([facility]) ([facility]) 08/18/2023 Tobacco abuse 10/08/2023 Hospitalist Progress Note Subjective: Admit Date: 03/13/2025 PCP: Leilani Han Room#: [id number]/[id number] A Chief Complaint Patient presents with Shortness of Breath Pt arrived from longterm via EMS. Pt was starting dialysis and [...] Klebsiella pneumonia with lung abscess presented to [facility] with worsening shortness of breath. He [...] in upper abdomen He was transferred from [facility] to [facility] due to bed availability Nephrology consulted, [...] 03/17/25 0933 LABS: CBC: Recent Labs 03/15/254 03/16/255 03/17/2546 WBC 6.7 7.0 6.7 RBC 3.02* 3.02* [...] MD Division of Hospital Medicine Inpatient Medical Services/[facility] [1] Past Medical History: Diagnosis Date Acute renal failure (ARF) ([facility]) 10/19/2019 Anemia 12/30/2021 Calcification of abdominal aorta ([facility]) 10/08/202309/[address] abd Diverticulosis 10/08/2023 [place]) 10/26/2019 [place]) HTN (hypertension) 12/01/2022 Hypertension IgA nephropathy IgA nephropathy determined by biopsy of kidney 10/26/2019 Missed vaccination due to patient refusal 10/08/2023 Has a number of non-scientific based beliefs which interfere with his understanding and acceptance of the medical benefit of vaccination. Nonrheumatic aortic valve stenosis 10/08/2023 Paroxysmal A-fib [place] ([facility]) 08/18/2023 Tobacco abuse 10/08/2023 [2] Lidocaine, 1 [...] Date Acute renal failure (ARF) ([facility]) 10/19/2019 Anemia 12/30/2021 Calcification of abdominal aorta ([facility]) 10/08/202309/[address] abd Diverticulosis 10/08/2023 [place]D [place] hemodialysis [place]) 10/26/2019 Hemod[place] [place]) HTN (hypertension) 12/01/2022 Hypertension IgA nephropathy IgA [...] sacral wound. Wellington Nicole MD' Please call [phone] or message me through [employer] with any questions or concerns. [facility] Anticoagulation Management Service ([facility]) Inpatient Warfarin [...] Mireles RPh, PharmD [facility] is available daily [phone] via Anywhere to Go. If no response on Anywhere to Go then please page [phone]. [1] Past Medical History: Diagnosis Date Acute renal failure (ARF) ([facility]) 10/19/2019 Anemia 12/30/2021 Calcification of abdominal aorta ([facility]) 10/08/202309/[address] abd Diverticulosis 10/08/2023 ESRD on hemodialysis ([facility]) ([facility]) 10/26/2019 Hemod[place]) HTN (hypertension) 12/01/2022 Hypertension IgA nephropathy IgA nephropathy determined by biopsy of kidney 10/26/2019 Missed vaccination due to patient refusal 10/08/2023 Has a number of non-scientific based beliefs which interfere with his understanding and acceptance of the medical benefit of vaccination. Nonrheumatic aortic valve stenosis 10/08/2023 Paroxysmal A-fib ([facility]) ([facility]) 08/18/2023 Tobacco abuse 10/08/2023 Images from the original note were not included. OCCUPATIONAL THERAPY [facility] Initial Evaluation Name/MRN: Jair Snyder ([id number]) Evaluation Date: 03/16/2025 Date of : 1965 Admission Date: 03/13/2025 8:18 AM Age: 59 y.o. Room/Bed: [facility] A Discharge Recommendation: Jail Facility Assessment IMPRESSION: Pt presented with SOB, [...] Problem List Diagnosis Date Noted Moderate malnutrition ([facility]) ([facility]) 03/14/2025 SOB (shortness of breath) 03/13/2025 Severe malnutrition ([facility]/HCC) ([facility]) 02/21/2025 Hemoptysis 02/20/2025 Complication of tracheostomy ([facility]) ([facility]) 01/19/2025 FPC (current) use of antibiotics 01/12/2025 Acute respiratory failure with hypoxia ([facility]) [J96.01] 01/08/2025 Tracheostomy care ([facility]) [Z43.0] 01/08/2025 Pulmonary embolism ([facility]) 01/08/2025 Sacral osteomyelitis ([facility]) ([facility]) 01/03/2025 Pneumonia of both lungs due to methicillin susceptible Staphylococcus aureus (MSSA) ([facility]) 01/01/2025 Leukocytosis 12/30/2024 Decubitus ulcer of sacral region, unstageable ([facility]) 12/30/2024 Peritonitis due to fungus ([facility]) 11/30/2024 History of abdominal surgery 11/30/2024 Leg DVT (deep venous thromboembolism), acute, left ([facility]) 11/30/2024 Ischemic ulcer of toe of left foot, limited to breakdown of skin ([facility]) 11/30/2024 Tracheostomy dependence ([facility]) 11/30/2024 Pleural effusion 11/28/2024 Gastric ulceration 2024 Atrial flutter, unspecified type ([facility]) 10/03/2024 RSV (acute bronchiolitis due to respiratory syncytial virus) 10/03/2024 Diverticulosis 10/08/2023 Nonrheumatic aortic valve stenosis 10/08/2023 Calcification of abdominal aorta ([facility]) 10/08/2023 Missed vaccination due to patient refusal 10/08/2023 Tobacco abuse 10/08/2023 Alcohol use disorder in remission 10/08/2023 Paroxysmal A-fib ([facility]) ([facility]) 08/18/2023 HTN (hypertension) 12/01/2022 [place]D [place] hemodialysis [place] ([facility]) 10/26/2019 IgA nephropathy determined by biopsy of kidney 10/26/2019 BRBPR (bright red blood per rectum) 01/19/2025 Aortic stenosis 10/03/2024 Upper GI bleed 10/03/2024 S/P AVR 10/03/2024 Acute hypoxic respiratory failure ([facility]) 10/03/2024 Acute encephalopathy 10/03/2024 Pneumoperitoneum 10/03/2024 Anemia 12/30/2021 Medical Precautions: No active isolations Proper PPE donned/doffed in accordance with facility standards. Fall Risk: Roqeu Fall Risk Score: 75 (Low Risk) Roque [...] Daily Activity Raw Score: 17 ADL Inpatient [facility] G-Code Modifier: CK Plan Pt would [...] of Care supervision is transferred to a [facility] Therapy Services Occupational Therapist. Goals and/or treatment plan was established in collaboration with patient/family/other representatives. [1] Past Medical History: Diagnosis Date Acute renal failure (ARF) ([facility]) 10/19/2019 Anemia 12/30/2021 Calcification of abdominal aorta ([facility]) 10/08/202309/[address] abd Diverticulosis 10/08/2023 [place]D [place] hemodialysis [place] ([facility]) 10/26/2019 Hemod[place] [place] ([facility]) HTN (hypertension) 12/01/2022 Hypertension IgA nephropathy IgA nephropathy determined by biopsy of kidney 10/26/2019 Missed vaccination due to patient refusal 10/08/2023 Has a number of non-scientific based beliefs which interfere with his understanding and acceptance of the medical benefit of vaccination. Nonrheumatic aortic valve stenosis 10/08/2023 Paroxysmal A-fib ([facility]/HCC) (HCC) 08/18/2023 Tobacco abuse 10/08/2023 [2] Past Surgical History: Procedure Laterality Date APPENDECTOMY CARDIAC CATHETERIZATION N/A 10/09/2024 Performed by Bob Watson MD at [facility] Cardiac Cath/EP Lab CARDIAC CATHETERIZATION Bilateral 11/01/2024 Performed by Bob Watson MD at [facility] Cardiac Cath/EP Lab CARDIAC CATHETERIZATION N/A 11/01/2024 Performed by Bob Watson MD at [facility] Cardiac Cath/EP Lab COLONOSCOPY N/A 01/24/2025 Performed by Chadd Davis MD at [facility] ENDOSCOPY FISTULAGRAM (HISTORICAL) Left 09/15/2021 LEFT UPPER ARM HX AV FISTULA CREATION IR EMBOLIZATION 10/14/2024 IR EMBOLIZATION 10/14/2024 [facility] SPECIAL PROCEDURES IR FISTULAGRAM 08/07/2022 IR FISTULAGRAM 08/07/2022 [facility] IR IMAGING TONSILLECTOMY (HISTORICAL) Hospitalist Progress Note Subjective: Admit Date: 03/13/2025 PCP: Leilani Han Room#: [id number] A Chief Complaint Patient presents with Shortness of Breath Pt arrived from longterm via EMS. Pt was starting dialysis and [...] Klebsiella pneumonia with lung abscess presented to [facility] ED with worsening shortness of breath. He [...] in upper abdomen He was transferred from [facility] to [facility] due to bed availability Nephrology consulted, [...] Net 600 ml LABS: CBC: Recent Labs 03/15/2543303/16/25 015 WBC 6.7 7.0 RBC 3.02* 3.02* HGB 9.2* 9.1* HCT 30.1* 30.2* MCV 99.7* 100.0* RDW 21.3* 21.2* PLT 392 372 BMP: Recent Labs 03/14/25 0507 03/15/25 04303/16/25 015 NA 141 139 139 K 5.2* 4.5 4.1 CL 102 100 104 CO2 28 28 26 BUN 57* 30* 18 CREATININE 4.96* 3.13* 2.35* GLUCOSE 99 91 83 CALCIUM 10.1 9.2 9.1 ANIONGAP 11 11 9 LIVER PROFILE: Recent Labs 03/15/2543303/16/25 015 AST 49* 47* ALT 14 13 BILITOT 0.8 0.9 ALKPHOS 201* 194* PROT 7.6 7.3 PT/INR: Recent Labs 03/15/2543303/16/25 015 PROTIME 17.9* 17.3* INR 1.7* 1.7* CARDIAC [...] Date -1 to 2 days - Location -[facility] - Pending the following -clinical course Total time spent (which include face to face and non face to face encounters) : 36 minutes Extended Emergency Contact Information Primary Emergency Contact: LillianOmar Mobile Relation: Child Secondary Emergency Contact: Toma Mcneil Mobile Relation: Partner Barb Dawkins MD Division of Hospital Medicine Inpatient Medical Services/[facility] [1] Past Medical History: Diagnosis Date Acute renal failure (ARF) ([facility]) 10/19/2019 Anemia 12/30/2021 Calcification of abdominal aorta ([facility]) 10/08/202309/[address] abd Diverticulosis 10/08/2023 [place] hemodialysis [place] ([facility]) 10/26/2019 Hemod[place]) HTN (hypertension) 12/01/2022 Hypertension IgA nephropathy IgA nephropathy determined by biopsy of kidney 10/26/2019 Missed vaccination due to patient refusal 10/08/2023 Has a number of non-scientific based beliefs which interfere with his understanding and acceptance of the medical benefit of vaccination. Nonrheumatic aortic valve stenosis 10/08/2023 Paroxysmal A-fib ([facility]) ([facility]) 08/18/2023 Tobacco abuse 10/08/2023 [2] Lidocaine, 1 [...] Date Acute renal failure (ARF) ([facility]) 10/19/2019 Anemia 12/30/2021 Calcification of abdominal aorta ([facility]) 10/08/202309/[address] abd Diverticulosis 10/08/2023 ESRD [place] hemodialysis [place] ([facility]) 10/26/2019 Hemodialysis [place] ([facility]) HTN (hypertension) 12/01/2022 Hypertension IgA nephropathy IgA nephropathy determined by biopsy of kidney 10/26/2019 Missed vaccination due to patient refusal 10/08/2023 Has a number of non-scientific based beliefs which interfere with his understanding and acceptance of the medical benefit of vaccination. Nonrheumatic aortic valve stenosis 10/08/2023 Paroxysmal A-fib [place] ([facility]) 08/18/2023 Tobacco abuse 10/08/2023 Nephrology Progress Note [...] any questions or concerns Bree Molina APRN SECURITY VEHICLE PATROL OFFICER A-G SUPERVISOR PROP MAKING [facility] [place] [phone] Pt seen and examined independently by me. I reviewed with EDNIA-SAMIA the medical history and the findings on physical examination. I discussed the patient s diagnosis and concur with the treatment plan as documented in his note. Please call [phone] or message me through [employer] with any questions or concerns. Images from the original note were not included. [facility] Wound VAC Progress Note Jun Snyder [...] for pain with IV pain medication, per junior staff accountant, prior to wound VAC dressing change. 1 [...] apply Betadine and allow to dry, leave ADMITTING CLERK daily and PRN Centrella Pro Plus bed Reposition q2hrs Incontinent checks q2hrs Nutritional support Wound Care to follow Recommend to follow up at [facility] wound care center after hospital discharge. [...] Date Acute renal failure (ARF) ([facility]) 10/19/2019 Anemia 12/30/2021 Calcification of abdominal aorta ([facility]) 10/08/202309/[address] abd Diverticulosis 10/08/2023 ESRD on hemodialysis ([facility]) ([facility]) 10/26/2019 Hemodialysis [place] ([facility]) HTN (hypertension) 12/01/2022 Hypertension IgA nephropathy IgA nephropathy determined by biopsy of kidney 10/26/2019 Missed vaccination due to patient refusal 10/08/2023 Has a number of non-scientific based beliefs which interfere with his understanding and acceptance of the medical benefit of vaccination. Nonrheumatic aortic valve stenosis 10/08/2023 Paroxysmal A-fib ([facility]) ([facility]) 08/18/2023 Tobacco abuse 10/08/2023 [2] Past Surgical History: Procedure Laterality Date APPENDECTOMY CARDIAC CATHETERIZATION N/A 10/09/2024 Performed by Bob Watson MD at [facility] Cardiac Cath/EP Lab CARDIAC CATHETERIZATION Bilateral 11/01/2024 Performed by Bob Watson MD at [facility] Cardiac Cath/EP Lab CARDIAC CATHETERIZATION N/A 11/01/2024 Performed by Bob Watson MD at [facility] Cardiac Cath/EP Lab COLONOSCOPY N/A 01/24/2025 Performed by Chadd Davis MD at [facility] ENDOSCOPY FISTULAGRAM (HISTORICAL) Left 09/15/2021 LEFT UPPER ARM HX AV FISTULA CREATION IR EMBOLIZATION 10/14/2024 IR EMBOLIZATION 10/14/2024 [facility] SPECIAL PROCEDURES IR FISTULAGRAM 08/07/2022 IR FISTULAGRAM 08/07/2022 [facility] IR IMAGING TONSILLECTOMY (HISTORICAL) [3] Family [...] Gill DO at 03/19/2025 4:44 PM EDT [facility] Anticoagulation Management Service ([facility]) Inpatient Warfarin [...] dose accordingly 3. Will facilitate f/u at [facility] upon discharge Kvng Dugan PharmD 2024 Candidate [facility] is available daily [phone] via Anywhere to Go. If no response on [employer] Chat then please page [phone]. [1] Past Medical History: Diagnosis Date Acute renal failure (ARF) ([facility]) 10/19/2019 Anemia 12/30/2021 Calcification of abdominal aorta ([facility]) 10/08/202309/[address] abd Diverticulosis 10/08/2023 ESRD on hemodialysis ([facility]) ([facility]) 10/26/2019 [place] ([facility]) HTN (hypertension) 12/01/2022 Hypertension IgA nephropathy IgA nephropathy determined by biopsy of kidney 10/26/2019 Missed vaccination due to patient refusal 10/08/2023 Has a number of non-scientific based beliefs which interfere with his understanding and acceptance of the medical benefit of vaccination. Nonrheumatic aortic valve stenosis 10/08/2023 Paroxysmal A-fib ([facility]) ([facility]) 08/18/2023 Tobacco abuse 10/08/2023 Cosigned by Tiffanie Dial RPh at 03/16/2025 10:57 AM EDT Patient currently off unit, will attempt smoking cessation counseling at a later date. Hospitalist Progress Note Subjective: Admit Date: 03/13/2025 PCP: Leilani Han Room#: [id number] A Chief Complaint Patient presents with Shortness of Breath Pt arrived from longterm via EMS. Pt was starting dialysis and [...] Klebsiella pneumonia with lung abscess presented to [facility] ED with worsening shortness of breath. He [...] in upper abdomen He was transferred from [facility] ED to [facility] due to bed availability Nephrology consulted, [...] Extended Emergency Contact Information Primary Emergency Contact: Lillian,Omar Mobile Relation: Child Secondary Emergency Contact: Toma Mcneil Mobile Relation: Partner [place] Annamarie Dawkins MD Division of Hospital Medicine Inpatient Medical Services/[facility] [1] Past Medical History: Diagnosis Date Acute renal failure (ARF) ([facility]) 10/19/2019 Anemia 12/30/2021 Calcification of abdominal aorta ([facility]) 10/08/202309/[address] abd Diverticulosis 10/08/2023 ESRD [place] hemodialysis [place] ([facility]) 10/26/2019 Hemodialysis [place] ([facility]) HTN (hypertension) 12/01/2022 Hypertension IgA nephropathy IgA nephropathy determined by biopsy of kidney 10/26/2019 Missed vaccination due to patient refusal 10/08/2023 Has a number of non-scientific based beliefs which interfere with his understanding and acceptance of the medical benefit of vaccination. Nonrheumatic aortic valve stenosis 10/08/2023 Paroxysmal A-fib [place] ([facility]) 08/18/2023 Tobacco abuse 10/08/2023 [2] Lidocaine, 1 [...] Date Acute renal failure (ARF) ([facility]) 10/19/2019 Anemia 12/30/2021 Calcification of abdominal aorta ([facility]) 10/08/202309/[address] abd Diverticulosis 10/08/2023 ESRD [place] hemodialysis [place] ([facility]) 10/26/2019 Hemodialysis [place] ([facility]) HTN (hypertension) 12/01/2022 Hypertension IgA nephropathy IgA [...] Following for ESRD Pt seen in room [facility] SOB NVD + cough Current Inpatient [...] any questions or concerns Bree Molina APRN SECURITY VEHICLE PATROL OFFICER A-G SUPERVISOR PROP MAKING [facility] [place] [phone] Pt seen and examined independently by me. I reviewed with STUDENT SERVICES COUNSELOR-SECURITY VEHICLE PATROL OFFICER the medical history and the findings on physical examination. I discussed the patient s diagnosis and concur with the treatment plan as documented in his note. Please call [phone] or message me through [employer] with any questions or concerns. [facility] Anticoagulation Management Service ([facility]) Inpatient Warfarin [...] 28.4* 30.1* PLT 392 392 Recent Labs 03/15/25433 INR 1.7* Date INR Dose 03/15 1.7 2.5 mg 03/14 --- 1.5mg 03/13 1.7 3mg Assessment/Plan: 1. Subtherapeutic INR yesterday, received boost dose. Will give 2.5mg today--higher than home dose 2. Monitor for s/s of bleeding and drug interactions. Will adjust dose accordingly 3. Will facilitate f/u at [facility] upon discharge Kvng Dugan, Natali 2024 Candidate [facility] is available daily [phone] via [employer] Chat. If no response on Epic Chat then please page [phone]. [1] Past Medical History: Diagnosis Date Acute renal failure (ARF) ([facility]) 10/19/2019 Anemia 12/30/2021 Calcification of abdominal aorta ([facility]) 10/08/202309/[address] abd Diverticulosis 10/08/2023 ESRD [place] hemodialysis [place] ([facility]) 10/26/2019 Hemodialysis [place] ([facility]) HTN (hypertension) 12/01/2022 Hypertension IgA nephropathy IgA nephropathy determined by biopsy of kidney 10/26/2019 Missed vaccination due to patient refusal 10/08/2023 Has a number of non-scientific based beliefs which interfere with his understanding and acceptance of the medical benefit of vaccination. Nonrheumatic aortic valve stenosis 10/08/2023 Paroxysmal A-fib ([facility]) ([facility]) 08/18/2023 Tobacco abuse 10/08/2023 Cosigned by Tiffanie Dial RP at 03/15/2025 1:17 PM EDT Images from the original note were not included. [facility] Wound VAC Progress Note Jun Snyder [...] apply Betadine and allow to dry, leave ADMITTING CLERK daily and PRN Nutritional support Wound Care to follow Recommend to follow up at [facility] wound care center after hospital discharge. [...] Date Acute renal failure (ARF) ([facility]) 10/19/2019 Anemia 12/30/2021 Calcification of abdominal aorta ([facility]) 10/08/202309/[address] abd Diverticulosis 10/08/2023 ESRD on hemodialysis ([facility]) ([facility]) 10/26/2019 Hemodialysis patient ([facility]) ([facility]) HTN (hypertension) 12/01/2022 Hypertension IgA nephropathy IgA [...] 10/09/2024 Performed by Bob Watson MD at [facility] Cardiac Cath/EP Lab CARDIAC CATHETERIZATION Bilateral 11/01/2024 Performed by Bob Watson MD at [facility] Cardiac Cath/EP Lab CARDIAC CATHETERIZATION N/A 11/01/2024 Performed by Bob Watson MD at [facility] Cardiac Cath/EP Lab COLONOSCOPY N/A 01/24/2025 Performed by Chadd Davis MD at [facility] ENDOSCOPY FISTULAGRAM (HISTORICAL) Left 09/15/2021 LEFT UPPER ARM HX AV FISTULA CREATION IR EMBOLIZATION 10/14/2024 IR EMBOLIZATION 10/14/2024 [facility] SPECIAL PROCEDURES IR FISTULAGRAM 08/07/2022 IR FISTULAGRAM [...] were not included. PHYSICAL THERAPY [facility] Initial Evaluation Name/MRN: Jair Snyder ([id number]) Evaluation Date: 03/14/2025 Date of : 1965 Admission Date: 03/13/2025 8:18 AM Age: 59 y.o. Room/Bed: [facility] A Discharge Recommendation: Jail Facility Equipment Needed: No Assessment IMPRESSION: Pt [...] breath) 03/13/2025 Severe malnutrition (CMS/HCC) ([facility]) 02/21/2025 Hemoptysis 02/20/2025 Complication of tracheostomy (CMS/HCC) ([facility]) 01/19/2025 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 (current) use of antibiotics 01/12/2025 Acute respiratory failure with hypoxia ([facility]) [J96.01] 01/08/2025 Tracheostomy care ([facility]) [Z43.0] 01/08/2025 Pulmonary embolism ([facility]) 01/08/2025 Sacral osteomyelitis ([facility]) ([facility]) 01/03/2025 Pneumonia of both lungs due to methicillin susceptible Staphylococcus aureus (MSSA) ([facility]) 01/01/2025 Leukocytosis 12/30/2024 Decubitus ulcer of sacral region, unstageable ([facility]) 12/30/2024 Peritonitis due to fungus ([facility]) 11/30/2024 History of abdominal surgery 11/30/2024 Leg DVT (deep venous thromboembolism), acute, left ([facility]) 11/30/2024 Ischemic ulcer of toe of left foot, limited to breakdown of skin ([facility]) 11/30/2024 Tracheostomy dependence ([facility]) 11/30/2024 Pleural effusion 11/28/2024 Gastric ulceration 2024 Atrial flutter, unspecified type ([facility]) 10/03/2024 RSV (acute bronchiolitis due to respiratory syncytial virus) 10/03/2024 Diverticulosis 10/08/2023 Nonrheumatic aortic valve stenosis 10/08/2023 Calcification of abdominal aorta ([facility]) 10/08/2023 Missed vaccination due to patient refusal 10/08/2023 Tobacco abuse 10/08/2023 Alcohol use disorder in remission 10/08/2023 Paroxysmal A-fib [place] ([facility]) 08/18/2023 HTN (hypertension) 12/01/2022 ESRD [place] hemodialysis [place] ([facility]) 10/26/2019 IgA nephropathy determined by biopsy of kidney 10/26/2019 BRBPR (bright red blood per rectum) 01/19/2025 Aortic stenosis 10/03/2024 Upper GI bleed 10/03/2024 S/P AVR 10/03/2024 Acute hypoxic respiratory failure ([facility]) 10/03/2024 Acute encephalopathy 10/03/2024 Pneumoperitoneum 10/03/2024 Anemia [...] awareness. Social/Functional History Pt has been at [facility] for rehab for the past ~1 [...] 0942 Time Out 1002 Minutes 20 Wilder Francois, PT Patient's Physical Therapy Plan of Care supervision is transferred to a [facility] Therapy Services Physical Therapist. Goals and/or treatment plan was established in collaboration with patient/family/other representatives. [1] Past Medical History: Diagnosis Date Acute renal failure (ARF) ([facility]) 10/19/2019 Anemia 12/30/2021 Calcification of abdominal aorta ([facility]) 10/08/202309/[address] abd Diverticulosis 10/08/2023 ESRD on hemodialysis ([facility]) ([facility]) 10/26/2019 [place]) HTN (hypertension) 12/01/2022 Hypertension IgA nephropathy IgA [...] 10/09/2024 Performed by Bob Watson MD at [facility] Cardiac Cath/EP Lab CARDIAC CATHETERIZATION Bilateral 11/01/2024 Performed by Bob Watson MD at [facility] Cardiac Cath/EP Lab CARDIAC CATHETERIZATION N/A 11/01/2024 Performed by Bob Watson MD at [facility] Cardiac Cath/EP Lab COLONOSCOPY N/A 01/24/2025 Performed by Chadd Davis MD at [facility] ENDOSCOPY FISTULAGRAM (HISTORICAL) Left 09/15/2021 LEFT UPPER ARM HX AV FISTULA CREATION IR EMBOLIZATION 10/14/2024 IR EMBOLIZATION 10/14/2024 [facility] SPECIAL PROCEDURES IR FISTULAGRAM 08/07/2022 IR FISTULAGRAM 08/07/2022 [facility] IR IMAGING TONSILLECTOMY (HISTORICAL) Hospitalist Progress Note Subjective: Admit Date: 03/13/2025 PCP: Leilani Han Room#: W5-058/[id number] A Chief Complaint Patient presents with Shortness of Breath Pt arrived from longterm via EMS. Pt was starting dialysis and [...] Klebsiella pneumonia with lung abscess presented to [facility] with worsening shortness of breath. He [...] in upper abdomen He was transferred from [facility] to [facility] due to bed availability Nephrology consulted, [...] MD Division of Hospital Medicine Inpatient Medical Services/[facility] [1] Past Medical History: Diagnosis Date Acute renal failure (ARF) ([facility]) 10/19/2019 Anemia 12/30/2021 Calcification of abdominal aorta ([facility]) 10/08/202309/[address] abd Diverticulosis 10/08/2023 [place] [place]) 10/26/2019 [place] [place]) HTN (hypertension) 12/01/2022 Hypertension IgA nephropathy IgA nephropathy determined by biopsy of kidney 10/26/2019 Missed vaccination due to patient refusal 10/08/2023 Has a number of non-scientific based beliefs which interfere with his understanding and acceptance of the medical benefit of vaccination. Nonrheumatic aortic valve stenosis 10/08/2023 Paroxysmal A-fib ([facility]) ([facility]) 08/18/2023 Tobacco abuse 10/08/2023 [2] Lidocaine, 1 [...] Date Acute renal failure (ARF) ([facility]) 10/19/2019 Anemia 12/30/2021 Calcification of abdominal aorta ([facility]) 10/08/202309/[address] abd Diverticulosis 10/08/2023 [place] [place]) 10/26/2019 [place] [place]) HTN (hypertension) 12/01/2022 Hypertension IgA nephropathy IgA nephropathy determined by biopsy of kidney 10/26/2019 Missed vaccination due to patient refusal 10/08/2023 Has a number of non-scientific based beliefs which interfere with his understanding and acceptance of the medical benefit of vaccination. Nonrheumatic aortic valve stenosis 10/08/2023 Paroxysmal A-fib [place] [place]) 08/18/2023 Tobacco abuse 10/08/2023 [facility] Anticoagulation Management Service ([facility]) Inpatient Warfarin [...] dose accordingly 3. Will facilitate f/u at [facility] upon discharge Tiffanie Dial RPh, PharmD [facility] is available daily [phone] via [employer] Chat. If no response on [employer] Chat then please page [phone]. [1] Past Medical History: Diagnosis Date Acute renal failure (ARF) ([facility]) 10/19/2019 Anemia 12/30/2021 Calcification of abdominal aorta ([facility]) 10/08/202309/[address] abd Diverticulosis 10/08/2023 [place] hemodialysis [place] [place]) 10/26/2019 [place] [place]) HTN (hypertension) 12/01/2022 Hypertension IgA nephropathy IgA nephropathy determined by biopsy of kidney 10/26/2019 Missed vaccination due to patient refusal 10/08/2023 Has a number of non-scientific based beliefs which interfere with his understanding and acceptance of the medical benefit of vaccination. Nonrheumatic aortic valve stenosis 10/08/2023 Paroxysmal A-fib [place] ([facility]) 08/18/2023 Tobacco abuse 10/08/[address] documented in this encounter [facility] 03-21-2025 Note Formatting of this n ote might be different from the original. Care Management Progress Note Short Medical why still here: Heparin gtt stopped today. . INR 2.9 today. Getting Coumadin. Refusing to work with therapy. They would like to skill him if able. Planned Discharge Dis[facility] Care Barriers/Today we still Wait: Administering IV medications, Test results (comment) Length of Stay (Days): 8 GMLOS: 3.9 [facility] 03-21-2025 Note Formatting of this n ote might be different from the original. Care Management Progress Note Short Medical why still here: Heparin gtt stopped today. . INR 2.9 today. Getting Coumadin. Refusing to work with therapy. They would like to skill him if able. Planned Discharge Disposition: [facility]Residential Care Barriers/Today we still Wait: Administering IV medications, Test results (comment) Length of Stay (Days): 8 GMLOS: 3.9 [facility] 03-21-2025 Plan of care note Problem: [...] and maintained or improved Outcome: Progressing T [facility] 03-20-2025 Nurse Note Patient Name: Jun Snyder Patient : 1965 Acct: [id number] Date of Admission: 03/13/2025 Room[facility]Bed: [facility] A Code Status: Full Code Allergies: [...] - Before each treatment: Dialysis Machine No.: [id number] RENY Machine Number: [id number] Dialyzer Lot No.: [id number] Tubing Lot Number: [id number] All Connections Secure: Yes Venous Parameters Set: Yes Arterial Parameters Set: Yes NS Bag: Yes Saline Line Double Clamped: Yes Dialyzer: Nipro Prime Volume (mL): 200 mL RO Machine Number: [id number] RO Machine Log Sheet Completed: Yes Machine Alarm Self Test: Completed, Passed (03/20/25 1145) Air Foam Detector: Tested, Proper Function, pH Reading Extracorporeal Circuit Tested for Integrity: Yes Machine Conductivity: 13.8 Manual Conductivity: 13.8 Manual Ph: 7 Bleach Test (Neg): Yes Bath Temperature: 36 C (96.8 F) Conductivity Meter Serial #: [id number] Machine Functioning Alarm Free? Yes Dialysis Bath: [...] Other (Comment) (to inform patient arrival from [facility] emergency room and need for orders) Provider [...] Active Problem List Diagnosis Anemia Paroxysmal A-fib ([facility]) ([facility]) HTN (hypertension) ESRD on hemodialysis ([facility]) ([facility]) IgA nephropathy determined by biopsy of kidney Diverticulosis Nonrheumatic aortic valve stenosis Calcification of abdominal aorta ([facility]) Missed vaccination due to patient refusal Tobacco abuse Alcohol use disorder in remission Atrial flutter, unspecified type ([facility]) RSV (acute bronchiolitis due to respiratory syncytial virus) Aortic stenosis Upper GI bleed S/P AVR Acute hypoxic respiratory failure ([facility]) Acute encephalopathy Pneumoperitoneum Gastric ulceration Severe malnutrition ([facility]) ([facility]) Pleural effusion Peritonitis due to fungus ([facility]) History of abdominal surgery Leg DVT (deep venous thromboembolism), acute, left ([facility]) 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, limited to breakdown of skin ([facility]) Tracheostomy dependence ([facility]) Leukocytosis Decubitus ulcer of sacral region, unstageable ([facility]) Pneumonia of both lungs due to methicillin susceptible Staphylococcus aureus (MSSA) ([facility]) Sacral osteomyelitis ([facility]) ([facility]) Acute respiratory failure with hypoxia ([facility]) [J96.01] Tracheostomy care ([facility]) [Z43.0] Pulmonary embolism ([facility]) 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 03-20-2025 Note Formatting of this n ote might be different from the original. Care Management Progress Note Short Medical why still here: Heparin gtt bridging to Coumadin. INR 1.9 today Planned Discharge Disposition: [facility] Care Barriers/Today we still Wait: Clinical stability Length of Stay (Days): 7 GMLOS: 3.[address] [facility] 03-20-2025 Note Formatting of this n ote might be different from the original. Care Management Progress Note Short Medical why still here: Heparin gtt bridging to Coumadin. INR 1.9 today Planned Discharge Disposition: [facility]idential Care Barriers/Today we still Wait: Clinical stability Length of Stay (Days): 7 GMLOS: 3.9 [facility] 03-20-2025 Plan of care note Problem: Knowledge [...] and maintained or improved Outcome: Progressing T [facility] 03-19-2025 Note Formatting of this n ote might be different from the original. Care Management Progress Note Continues on a Heparin gtt. Trying to bridge to Coumadin. INR 1.6 today. When stable plan is to return to [facility].. . Length of Stay (Days): 6 GMLOS: 3.[address] [facility] 03-19-2025 Note Formatting of this n ote might be different from the original. Care Management Progress Note Continues on a Heparin gtt. Trying to bridge to Coumadin. INR 1.6 today. When stable plan is to return to [facility].. . Length of Stay (Days): 6 GMLOS: 3.9 [facility] 03-19-2025 Plan of care note Problem: Knowledge [...] and maintained or improved Outcome: Progressing T [facility] 03-19-2025 Plan of care note Problem: [...] monitored and maintained or improved Outcome: Progressing [facility] 03-19-2025 Nurse Note Wound vac suction failing-pt requesting wound vac removed for now. Black foam dressing removed and wound packed with saline-soaked gauze covered with DSD [facility] 03-19-2025 Nurse Note Pt adamantly refusing telemetry at this time, ripped off monitor and threw to the floor [facility] 03-18-2025 Note Problem: Pain - Adul t Goal: Verbalizes/displays adequate comfort level or baseline comfort level Outcome: Progressing Problem: Safety - Adult Goal: Free from fall injury Outcome: Progressing [facility] 03-18-2025 Plan of care note Problem: Pain - Adult Goal: Verbalizes/displays adequate comfort level or baseline comfort level Outcome: Progressing Problem: Safety - Adult Goal: Free from fall injury Outcome: Progressing T [facility] 03-17-2025 Plan of care note Problem: [...] monitored and maintained or improved Outcome: Progressing [facility] 03-17-2025 Note Problem: Pain - Adul t Goal: Verbalizes/displays adequate comfort level or baseline comfort level Outcome: Progressing Problem: Safety - Adult Goal: Free from fall injury Outcome: Progressing [facility] 03-17-2025 Plan of care note Problem: Pain - Adult Goal: Verbalizes/displays adequate comfort level or baseline comfort level Outcome: Progressing Problem: Safety - Adult Goal: Free from fall injury Outcome: Progressing T [facility] 03-17-2025 Nurse Note Patient Name: Jun Snyder Patient : 1965 Acct: [id number] Date of Admission: 03/13/2025 Room[facility]Bed: [facility] A Code Status: Full Code Allergies: [...] 6.7 03/17/2025 0047 HGB 10.0 (L) 03/17/2025 004 HGB 11.8 (L) 03/13/2025 0902 HCT 33.8 (L) 03/17/2025 004 PLT 407 03/17/2025 0047 NA 141 03/17/2025 0047 K 3.9 03/17/2025 0047 CL 104 03/17/2025 0047 CO2 25 03/17/2025 0047 BUN 22 03/17/20257 CREATININE 3.25 (H) 03/17/202546 CREATININE 9.99 (H) 10/27/2019544 CALCIUM 9.6 03/17/202546 PHOS 2.6 02/23/2025 0032 IV Drips and Rate/Dose Continuous Meds[3] Safety - Before each treatment: Dialysis Machine No.: [id number] RO Machine Number: [id number] Dialyzer Lot No.: [id number] Tubing Lot Number: [id number] All Connections Secure: Yes Venous Parameters Set: Yes Arterial Parameters Set: Yes NS Bag: Yes Saline Line Double Clamped: Yes Dialyzer: Nipro Prime Volume (mL): 200 mL RO Machine Number: [id number] RO Machine Log Sheet Completed: Yes Machine Alarm Self Test: Completed, Passed (03/17/25 0803) Air Foam Detector: Tested, Proper Function, pH Reading Extracorporeal Circuit Tested for Integrity: Yes Machine Conductivity: 13.6 Manual Conductivity: 13.6 Manual Ph: 7 Bleach Test (Neg): Yes Bath Temperature: 36 C (96.8 F) Conductivity Meter Serial #: [id number] Machine Functioning Alarm Free? Yes Dialysis Bath: K+ (Potassium): 2 Ca+ (Calcium): 2.5 Na+ (Sodium): 135 HCO3 (Bicarb): 35 Chlorine Testing - Before each treatment and every 4 hours: Time On: 0841 Time Off: 1141 Treatment Goal: 2L Weight Height: 177.8 cm (5' 10") (03/14/25 1617) Weight: 64.4 kg (142 lb) (03/17/25536) BMI (Calculated): 20.37 (03/17/2537) 1st check: less than 0.1 ppm at: [...] Other (Comment) (to inform patient arrival from [facility] emergency room and need for orders) Provider [...] Active Problem List Diagnosis Anemia Paroxysmal A-fib ([facility]) ([facility]) HTN (hypertension) [place]D [place] hemodialysis [place] ([facility]) IgA nephropathy determined by biopsy of kidney Diverticulosis Nonrheumatic aortic valve stenosis Calcification of abdominal aorta ([facility]) Missed vaccination due to patient refusal Tobacco abuse Alcohol use disorder in remission Atrial flutter, unspecified type ([facility]) RSV (acute bronchiolitis due to respiratory syncytial virus) Aortic stenosis Upper GI bleed S/P AVR Acute hypoxic respiratory failure ([facility]) Acute encephalopathy Pneumoperitoneum Gastric ulceration Severe malnutrition ([facility]) ([facility]) Pleural effusion Peritonitis due to fungus ([facility]) History of abdominal surgery Leg DVT (deep venous thromboembolism), acute, left ([facility]) Ischemic ulcer of toe of left foot, limited to breakdown of skin ([facility]) Tracheostomy dependence ([facility]) Leukocytosis Decubitus ulcer of sacral region, unstageable ([facility]) Pneumonia of both lungs due to methicillin susceptible Staphylococcus aureus (MSSA) ([facility]) Sacral osteomyelitis (CMS/HCC) ([facility]) Acute respiratory failure with hypoxia ([facility]) [J96.01] Tracheostomy care ([facility]) [Z43.0] Pulmonary embolism ([facility]) FPC (current) use of antibiotics Complication of tracheostomy (CMS/HCC) ([facility]) BRBPR (bright red blood per rectum) Hemoptysis SOB (shortness of breath) Moderate malnutrition (CMS/HCC) ([facility]) [3] heparin, 5-30 Units/kg/hr T [facility] 03-16-2025 Plan of care note Problem: Knowledge Deficit Goal: Patient/family/caregiver demonstrates understanding of disease process, treatment plan, medications, and discharge instructions Outcome: Progressing Problem: Potential for Compromised Skin Integrity Goal: Nutritional status is improving Outcome: Progressing [facility] 03-16-2025 Plan of care note Problem: Knowledge [...] Goal: Assess Nutritional Intake Outcome: Progressing T [facility] 03-16-2025 Note Formatting of this n ote might be different from the original. Care Management Progress Note Going to dialysis today. Refusing surgery for gangrenous toes. Anticipate discharge back to [facility] soon. . Length of Stay (Days): 3 GMLOS: 3.9 [facility] 03-16-2025 Note Formatting of this n ote might be different from the original. Care Management Progress Note Going to dialysis today. Refusing surgery for gangrenous toes. Anticipate discharge back to [facility] soon. . Length of Stay (Days): 3 GMLOS: 3.[address] [facility] 03-16-2025 Note Care Management Prog ress Note Going to dialysis today. Refusing surgery for gangrenous toes. Anticipate discharge back to [facility] soon. . Length of Stay (Days): 3 GMLOS: 3.9 [facility] 03-15-2025 Note Formatting of this n ote might be different from the original. ELIA reviewed chart. Copy of DPOA found in electronic chart naming Omar connell as agent. Care Management Return to Hospital Readmission questionnaire- N/A- pt form [facility]. T [facility] 03-15-2025 Note Formatting of this n ote might be different from the original. ELIA reviewed chart. Copy of DPOA found in electronic chart naming Omar connell as agent. Care Management Return to Hospital Readmission questionnaire- N/A- pt form [facility]. T [facility] 03-15-2025 Note ELIA reviewed chart. Copy of DPOA found in electronic chart naming Omar connell as agent. Care Management Return to Hospital Readmission questionnaire- N/A- pt form [facility]. [facility] 03-15-2025 Consult note Associated Order (s): Inpatient consult to Vascular Surgery--[facility]; Gangrenous toes noted on first 4 toes on left lower extremity, please evaluate Images from the original note were not included. Inpatient consult to Vascular Surgery--[facility]; Gangrenous toes noted on [...] 0 min Stress: Stress Concern Present (02/21/2025) [place] [place] [employer] - Occupational Stress Questionnaire Feeling of Stress : To some extent Social Connections: Unknown (02/21/2025) Social Connection and Isolation Panel [NHANES] Frequency of Communication with Friends and Family: More than three times a week Frequency of Social Gatherings with Friends and Family: Patient declined Attends Tenriism Services: Patient declined Active Member of Clubs [...] Department of Surgery General Surgery Resident Pager: [phone] PAGING / [employer] Secure Chat: From 6a-6p (-s): [employer] Secure Chat (FIRST) or Pager above (EMERGENT/Second) From p-6a (-s): Find resident physician under [facility] Surgery [...] This note may have been dictated using Equals6 Practice Edition and/or textmetix Voice Recognition Feature. The document was proofread; however, unrecognized voice recognition home care administrator errors may be present. [1] Past Medical History: Diagnosis Date Acute renal failure (ARF) (HCC) 10/19/2019 Anemia 12/30/2021 Calcification of abdominal aorta (HCC) 10/08/202309/[address] abd Diverticulosis 10/08/2023 [place]) 10/26/2019 [place]) HTN (hypertension) 12/01/2022 Hypertension IgA nephropathy IgA nephropathy determined by biopsy of kidney 10/26/2019 Missed vaccination due to patient refusal 10/08/2023 Has a number of non-scientific based beliefs which interfere with his understanding and acceptance of the medical benefit of vaccination. Nonrheumatic aortic valve stenosis 10/08/2023 Paroxysmal A-fib [place] ([facility]) 08/18/2023 Tobacco abuse 10/08/2023 [2] Past Surgical History: Procedure Laterality Date APPENDECTOMY CARDIAC CATHETERIZATION N/A 10/09/2024 Performed by Bob Watson MD at [facility] Cardiac Cath/EP Lab CARDIAC CATHETERIZATION Bilateral 11/01/2024 Performed by Bob Watson MD at [facility] Cardiac Cath/EP Lab CARDIAC CATHETERIZATION N/A 11/01/2024 Performed by Bob Watson MD at [facility] Cardiac Cath/EP Lab COLONOSCOPY N/A 01/24/2025 Performed by Chadd Davis MD at [facility] ENDOSCOPY FISTULAGRAM (HISTORICAL) Left 09/15/2021 LEFT UPPER ARM HX AV FISTULA CREATION IR EMBOLIZATION 10/14/2024 IR EMBOLIZATION 10/14/2024 [facility] SPECIAL PROCEDURES IR FISTULAGRAM 08/07/2022 IR FISTULAGRAM 08/07/2022 [facility] IR IMAGING TONSILLECTOMY (HISTORICAL) [3] [4] PRN [...] planning if and when patient is willing. [employer] Phone: 03-15-2025 Consult note Associated Order (s): Inpatient consult to Vascular Surgery--[facility]; Gangrenous toes noted on first 4 toes on left lower extremity, please evaluate Images from the original note were not included. Inpatient consult to Vascular Surgery--[facility]; Gangrenous toes noted on [...] 0 min Stress: Stress Concern Present (02/21/2025) [place] [employer] - Occupational Stress Questionnaire Feeling of Stress : To some extent Social Connections: Unknown (02/21/2025) Social Connection and Isolation Panel [NHANES] Frequency of Communication with Friends and Family: More than three times a week Frequency of Social Gatherings with Friends and Family: Patient declined Attends Tenriism Services: Patient declined Active Member of Clubs [...] Department of Surgery General Surgery Resident Pager: [phone] PAGING / [employer] Secure Chat: From -p (- weekends): Epic Secure Chat (FIRST) or Pager above (EMERGENT/Second) From 6p-6a (- weekends): Find resident physician under [facility] Surgery - General - Surgical ICU Patients: Select 'ACH GEN SURG Night Float ICU RES' or "Page [phone]" - Surgical Floor Patients: Select 'ACH GEN SURG Night Float Floor RES' or "Page [phone]" Disclaimers: INFORMED CONSENT: The nature and purpose [...] This note may have been dictated using Equals6 Practice Edition and/or textmetix Voice Recognition Feature. The document was proofread; however, unrecognized voice recognition home care administrator errors may be present. [1] Past Medical History: Diagnosis Date Acute renal failure (ARF) ([facility]) 10/19/2019 Anemia 12/30/2021 Calcification of abdominal aorta ([facility]) 10/08/202309/[address] abd Diverticulosis 10/08/2023 ESRD on hemodialysis ([facility]) ([facility]) 10/26/2019 [place] [facility] HTN (hypertension) 12/01/2022 Hypertension IgA nephropathy IgA nephropathy determined by biopsy of kidney 10/26/2019 Missed vaccination due to patient refusal 10/08/2023 Has a number of non-scientific based beliefs which interfere with his understanding and acceptance of the medical benefit of vaccination. Nonrheumatic aortic valve stenosis 10/08/2023 Paroxysmal A-fib ([facility]) ([facility]) 08/18/2023 Tobacco abuse 10/08/2023 [2] Past Surgical History: Procedure Laterality Date APPENDECTOMY CARDIAC CATHETERIZATION N/A 10/09/2024 Performed by Bob Watson MD at [facility] Cardiac Cath/EP Lab CARDIAC CATHETERIZATION Bilateral 11/01/2024 Performed by Bob Watson MD at [facility] Cardiac Cath/EP Lab CARDIAC CATHETERIZATION N/A 11/01/2024 Performed by Bbo Watson MD at [facility] Cardiac Cath/EP Lab COLONOSCOPY N/A 01/24/2025 Performed by Chadd Davis MD at [facility] ENDOSCOPY FISTULAGRAM (HISTORICAL) Left 09/15/2021 LEFT UPPER ARM HX AV FISTULA CREATION IR EMBOLIZATION 10/14/2024 IR EMBOLIZATION 10/14/2024 [facility] SPECIAL PROCEDURES IR FISTULAGRAM 08/07/2022 IR FISTULAGRAM 08/07/2022 [facility] IR IMAGING TONSILLECTOMY (HISTORICAL) [3] [4] PRN [...] Order(s): IP CONSULT TO DIETITIAN See dietitian eval dated 03/14/25. Pt tolerating diet well, was started on ensure plus HP BID during admission. 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 Pt was starting dialysis and [...] On: Kcal/kg Weight Used for Energy Requirements: [place] Weight for Energy Calculation (kg): 75 kg Total Energy Requirements (kcals/day): 8449-8589 (25-30 kcals/kg) Weight Used for Protein Requirements: [place] Weight in Kg Used for Protein Requirements: [...] TSH 6.88 (H) 03/13/2025 FREET4 0.89 03/15/2025 [id number] 959 (H) 10/22/2019 FOLATE 9.2 10/22/2019 FERRITIN [...] for updated dry wt - per nephro) [place] Body Weight (lbs) (Calculated): 166 lbs [place] Body Weight (Kg) (Calculated): 75 kg % [place] Body Weight (Calculated): 88.6 % BMI (kg/m2) [...] Yasemin Jonescheco MS, RD, LD Contact: or [employer] Chat (dial *[phone] from hospital phone) [1] Past Medical History: Diagnosis Date Acute renal failure (ARF) ([facility]) 10/19/2019 Anemia 12/30/2021 Calcification of abdominal aorta ([facility]) 10/08/202309/[address] abd Diverticulosis 10/08/2023 [place] [place]) 10/26/2019 [place]) HTN (hypertension) 12/01/2022 Hypertension IgA nephropathy IgA nephropathy determined by biopsy of kidney 10/26/2019 Missed vaccination due to patient refusal 10/08/2023 Has a number of non-scientific based beliefs which interfere with his understanding and acceptance of the medical benefit of vaccination. Nonrheumatic aortic valve stenosis 10/08/2023 Paroxysmal A-fib ([facility]) ([facility]) 08/18/2023 Tobacco abuse 10/08/2023 [2] Past Surgical History: Procedure Laterality Date APPENDECTOMY CARDIAC CATHETERIZATION N/A 10/09/2024 Performed by Bob Watson MD at [facility] Cardiac Cath/EP Lab CARDIAC CATHETERIZATION Bilateral 11/01/2024 Performed by Bob Watson MD at [facility] Cardiac Cath/EP Lab CARDIAC CATHETERIZATION N/A 11/01/2024 Performed by Bob Watson MD at [facility] Cardiac Cath/EP Lab COLONOSCOPY N/A 01/24/2025 Performed by Chadd Davis MD at [facility] ENDOSCOPY FISTULAGRAM (HISTORICAL) Left 09/15/2021 LEFT UPPER ARM HX AV FISTULA CREATION IR EMBOLIZATION 10/14/2024 IR EMBOLIZATION 10/14/2024 [facility] SPECIAL PROCEDURES IR FISTULAGRAM 08/07/2022 IR FISTULAGRAM 08/07/2022 SB IR IMAGING TONSILLECTOMY (HISTORICAL) [3] Lidocaine, 1 patch, Topical, Daily metoprolol tartrate, 25 mg, Oral, q6h pantoprazole, 40 mg, Oral, BID AC sevelamer carbonate, 800 mg, Oral, TID WC sodium zirconium cyclosilicate, 5 g, Oral, Daily warfarin, 2.5 mg, Oral, Once [4] [facility] Consult Note Consults MELO Ramirez is [...] 0 min Stress: Stress Concern Present (02/21/2025) [place] [employer] - Occupational Stress Questionnaire Feeling of Stress : To some extent Social Connections: Unknown (02/21/2025) Social Connection and Isolation Panel [NHANES] Frequency of Communication with Friends and Family: More than three times a week Frequency of Social Gatherings with Friends and Family: Patient declined Attends Tenriism Services: Patient declined Active Member of Clubs [...] Nicole MD 03/14/2025 10:43 AM [facility] [address] [place] [address], [address] [place] [address] Office: [phone] [1] Past Medical History: Diagnosis Date Acute renal failure (ARF) (HCC) 10/19/2019 Anemia 12/30/2021 Calcification of abdominal aorta (HCC) 10/08/202309/[address] abd Diverticulosis 10/08/2023 [place] [place]) 10/26/2019 [place] [place]) HTN (hypertension) 12/01/2022 Hypertension IgA nephropathy IgA nephropathy determined by biopsy of kidney 10/26/2019 Missed vaccination due to patient refusal 10/08/2023 Has a number of non-scientific based beliefs which interfere with his understanding and acceptance of the medical benefit of vaccination. Nonrheumatic aortic valve stenosis 10/08/2023 Paroxysmal [place]-fib [place]) 08/18/2023 Tobacco abuse 10/08/2023 [2] Family History [...] 3350 Associated Order(s): IP CONSULT TO CARDIOLOGY [facility] Cardiology /Electrophysiology Consult Note Reason for Consult/Chief Complaint: Volume overload, afib rvr Referring provider: Dr Kidd Established helmet hat brim cutter: Dr Shah History of Present Illness: Jun [...] to select rehab. He recently was at [facility] for Klebsiella pneumonia, hemoptysis and [...] Coumadin - goal INR 2-3 Managed by pharmacy/[facility] Medications: Scheduled Meds[1] Infusion Medications: Continuous [...] of Cardiovascular Disease, Division of Heart Failure [facility] [place] 3:25 PM 03/14/25 Associated Order(s): INPATIENT CONSULT TO WOUND CARE PROVIDERS Images from the original note were not included. [facility] Wound VAC CONSULT Note Jun Snyder [...] apply Betadine and allow to dry, leave ADMITTING CLERK daily and PRN Nutritional support Wound Care to follow Recommend to follow up at [facility] wound care center after hospital discharge. [...] Date Acute renal failure (ARF) ([facility]) 10/19/2019 Anemia 12/30/2021 Calcification of abdominal aorta ([facility]) 10/08/202309/[address] abd Diverticulosis 10/08/2023 ESRD on hemodialysis ([facility]) ([facility]) 10/26/2019 [place] [place]) HTN (hypertension) 12/01/2022 Hypertension IgA nephropathy IgA nephropathy determined by biopsy of kidney 10/26/2019 Missed vaccination due to patient refusal 10/08/2023 Has a number of non-scientific based beliefs which interfere with his understanding and acceptance of the medical benefit of vaccination. Nonrheumatic aortic valve stenosis 10/08/2023 Paroxysmal A-fib ([facility]) ([facility]) 08/18/2023 Tobacco abuse 10/08/2023 [2] Past Surgical History: Procedure Laterality Date APPENDECTOMY CARDIAC CATHETERIZATION N/A 10/09/2024 Performed by Bob Watson MD at [facility] Cardiac Cath/EP Lab CARDIAC CATHETERIZATION Bilateral 11/01/2024 Performed by Bob Watson MD at [facility] Cardiac Cath/EP Lab CARDIAC CATHETERIZATION N/A 11/01/2024 Performed by Bob Watson MD at [facility] Cardiac Cath/EP Lab COLONOSCOPY N/A 01/24/2025 Performed by Chadd Davis MD at [facility] ENDOSCOPY FISTULAGRAM (HISTORICAL) Left 09/15/2021 LEFT UPPER ARM HX AV FISTULA CREATION IR EMBOLIZATION 10/14/2024 IR EMBOLIZATION 10/14/2024 [facility] SPECIAL PROCEDURES IR FISTULAGRAM 08/07/2022 IR FISTULAGRAM [...] 4:44 PM EDT documented in this encounter [facility] 03-15-2025 Note Patient currently of f unit, will attempt smoking cessation counseling at a later date. [facility] 03-15-2025 Nurse Note Patient Name: Jun Snyder Patient : 1965 Acct: [id number] Date of Admission: 03/13/2025 Room/Bed: [facility] A Code Status: Full Code Allergies: [...] - Before each treatment: Dialysis Machine No.: [id number] RO Machine Number: [id number] Dialyzer Lot No.: [id number] Tubing Lot Number: [id number] All Connections Secure: Yes Venous Parameters Set: Yes Arterial Parameters Set: Yes NS Bag: Yes Saline Line Double Clamped: Yes Dialyzer: Nipro Prime Volume (mL): 200 mL RO Machine Number: [id number] RO Machine Log Sheet Completed: Yes Machine Alarm Self Test: Completed, Passed (03/15/25 1215) Air Foam Detector: Tested, Proper Function, pH Reading Extracorporeal Circuit Tested for Integrity: Yes Machine Conductivity: 13.8 Manual Conductivity: 13.7 Manual Ph: 7 Bleach Test (Neg): Yes Bath Temperature: 36 C (96.8 F) Conductivity Meter Serial #: [id number] Machine Functioning Alarm Free? Yes Dialysis Bath: [...] Other (Comment) (to inform patient arrival from [facility] and need for orders) Provider [...] Active Problem List Diagnosis Anemia Paroxysmal A-fib ([facility]) ([facility]) HTN (hypertension) ESRD on hemodialysis ([facility]) ([facility]) IgA nephropathy determined by biopsy of kidney Diverticulosis Nonrheumatic aortic valve stenosis Calcification of abdominal aorta ([facility]) Missed vaccination due to patient refusal Tobacco abuse Alcohol use disorder in remission Atrial flutter, unspecified type ([facility]) RSV (acute bronchiolitis due to respiratory syncytial virus) Aortic stenosis Upper GI bleed S/P AVR Acute hypoxic respiratory failure ([facility]) Acute encephalopathy Pneumoperitoneum Gastric ulceration Severe malnutrition (CMS/HCC) ([facility]) Pleural effusion Peritonitis due to fungus ([facility]) History of abdominal surgery Leg DVT (deep venous thromboembolism), acute, left (HCC) Ischemic ulcer of toe of left foot, 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) Tracheostomy dependence (HCC) Leukocytosis Decubitus ulcer of sacral region, unstageable ([facility]) Pneumonia of both lungs due to methicillin susceptible Staphylococcus aureus (MSSA) ([facility]) Sacral osteomyelitis ([facility]) ([facility]) Acute respiratory failure with hypoxia ([facility]) [J96.01] Tracheostomy care ([facility]) [Z43.0] Pulmonary embolism ([facility]) 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 (current) use of antibiotics Complication of tracheostomy ([facility]) ([facility]) BRBPR (bright red blood per rectum) Hemoptysis SOB (shortness of breath) Moderate malnutrition (CMS/HCC) ([facility]) [3] [facility] 03-15-2025 Consult note Associated Order (s): IP CONSULT TO DIETITIAN See dietitian eval dated 03/14/25. Pt tolerating diet well, was started on ensure plus HP BID during admission. Will continue to monitor labs, meds, po intakes and/or enteral nutrition tolerance, skin integrity, wt trends, and overall nutrition status - RD to follow weekly Yasemin Ceron MS, RD, LD Clinical Dietitian Contact: or [employer] Chat (dial *[phone] from hospital phone) [facility] 03-15-2025 Plan of care note Problem: [...] Goal: Assess Nutritional Intake Outcome: Progressing T [facility] 03-15-2025 Note Formatting of this n ote might be different from the original. Care Management Progress Note Cardiology following. Pt in A flutter, trying rate control. Has wound vac on sacral area. Pt is refusing surgery. When stable is a bed hold at [facility]. . Length of Stay (Days): 2 GMLOS: No GMLOS Documented T [facility] 03-15-2025 Note Formatting of this n ote might be different from the original. Care Management Progress Note Cardiology following. Pt in A flutter, trying rate control. Has wound vac on sacral area. Pt is refusing surgery. When stable is a bed hold at [facility]. . Length of Stay (Days): 2 GMLOS: No GMLOS Documented [facility] 03-15-2025 Nurse Note Wound Care consulted for Pressure Injury Prevention. Pt's Kee score= 14 on 03/13 Pt's pressure points assessed. Pt's Heels, Back, Elbows, Occiput and ears all intact. [place] and healed area noted to occiput. Pt moving lower extremities well in bed against gravity. Pt currently followed by Wound SUPERVISOR PROP MAKING group for wounds to left toes 1-4 and sacrum with wound vac in place. For left toes, sacrum, and sacral wound vac assessments and treatment plan, please see Wound/Ostomy SUPERVISOR PROP MAKING progress notes. Instructed pt on pressure injury prevention and importance of turning/postioning every 2hrs while in bed and every 15 min while sitting in chair. Instructed on use and care of waffle chair cushion. Verbalized understanding. Prevention Measures in place, including: [place] sheet with pillows/wedges, Heels elevated off bed on pillows, Zinc/Moisture Barrier ointment (obtained), Waffle chair cushion (obtained for pt). Skin Care precaution order set in place. Dietitian consult order placed d/t wounds. PT/OT consult in place. Will continue to follow pt. Please Vocera for any questions or concerns. Yari Pelletier RN [facility] 03-15-2025 Plan of care note Problem: Knowledge Deficit Goal: Patient/family/caregiver demonstrates understanding of disease process, treatment plan, medications, and discharge instructions Outcome: Progressing Problem: Problem Interventions Goal: Assess Nutritional Intake Outcome: Progressing [facility] 03-14-2025 Plan of care note Problem: Knowledge [...] Interventions Goal: Assess Nutritional Intake Outcome: Progressing 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 Pt was starting dialysis and [...] On: Kcal/kg Weight Used for Energy Requirements: [place] Weight for Energy Calculation (kg): 75 kg Total Energy Requirements (kcals/day): 8091-3465 (25-30 kcals/kg) Weight Used for Protein Requirements: [place] Weight in Kg Used for Protein Requirements: [...] TSH 6.88 (H) 03/13/2025 FREET4 0.89 03/15/2025 [id number] 959 (H) 10/22/2019 FOLATE 9.2 10/22/2019 FERRITIN [...] for updated dry wt - per nephro) [place] Body Weight (lbs) (Calculated): 166 lbs [place] Body Weight (Kg) (Calculated): 75 kg % [place] Body Weight (Calculated): 88.6 % BMI (kg/m2) [...] Yasemin Elizabethsalvador MS, RD, LD Contact: or [employer] Chat (dial *[phone] from hospital phone) [1] Past Medical History: Diagnosis Date Acute renal failure (ARF) ([facility]) 10/19/2019 Anemia 12/30/2021 Calcification of abdominal aorta (HCC) 10/08/202309/[address] abd Diverticulosis 10/08/2023 ESRD on hemodialysis ([facility]) ([facility]) 10/26/2019 Hemodialysis patient ([facility]) ([facility]) HTN (hypertension) 12/01/2022 Hypertension IgA nephropathy IgA [...] 10/09/2024 Performed by Bob Watson MD at [facility] Cardiac Cath/EP Lab CARDIAC CATHETERIZATION Bilateral 11/01/2024 Performed by Bob Watson MD at [facility] Cardiac Cath/EP Lab CARDIAC CATHETERIZATION N/A 11/01/2024 Performed by Bob Watson MD at [facility] Cardiac Cath/EP Lab COLONOSCOPY N/A 01/24/2025 Performed by Chadd Davis MD at [facility] ENDOSCOPY FISTULAGRAM (HISTORICAL) Left 09/15/2021 LEFT UPPER ARM HX AV FISTULA CREATION IR EMBOLIZATION 10/14/2024 IR EMBOLIZATION 10/14/2024 [facility] SPECIAL PROCEDURES IR FISTULAGRAM 08/07/2022 IR FISTULAGRAM 08/07/2022 [facility] IR IMAGING TONSILLECTOMY (HISTORICAL) [3] Lidocaine, 1 patch, Topical, Daily metoprolol tartrate, 25 mg, Oral, q6h pantoprazole, 40 mg, Oral, BID AC sevelamer carbonate, 800 mg, Oral, TID WC sodium zirconium cyclosilicate, 5 g, Oral, Daily warfarin, 2.5 mg, Oral, Once [4] [facility] 03-14-2025 Hospital Discharg e steven Jones RN - 03/14/2025 2:19 PM EDT My Heart Failure Action Plan Use the below chart as a guide for daily symptom monitoring after you obtain your morning weight. My Blending Plant Operator: Dr. Shah [facility] Cardiology at [facility] [phone] My Strapper And Buffer: [facility] [address] [place] [address] My Diagnosis: Heart failure with [...] 5 pounds in a week Call your Strapper And Buffer/Dialysis center!! My Diet Goal: General diet recommendations [...] 10/09/2024 Performed by Bob Watson MD at [facility] Cardiac Cath/EP Lab CARDIAC CATHETERIZATION Bilateral 11/01/2024 Performed by Bob Watson MD at [facility] Cardiac Cath/EP Lab CARDIAC CATHETERIZATION N/A 11/01/2024 Performed by Bob Watson MD at [facility] Cardiac Cath/EP Lab COLONOSCOPY N/A 01/24/2025 Performed by Chadd Davis MD at [facility] ENDOSCOPY FISTULAGRAM (HISTORICAL) Left 09/15/2021 LEFT UPPER ARM HX AV FISTULA CREATION IR EMBOLIZATION 10/14/2024 IR EMBOLIZATION 10/14/2024 [facility] SPECIAL PROCEDURES IR FISTULAGRAM 08/07/2022 IR FISTULAGRAM 08/07/2022 [facility] IR IMAGING TONSILLECTOMY (HISTORICAL) Immunization History: Immunization History Administered Date(s) Administered Hep B, Unspecified 11/15/2019, 12/19/2019, 01/19/2020, 05/20/2020 Active Problems: Medical Problems Problem List * (Principal) SOB (shortness of breath) Paroxysmal A-fib (CMS/HCC) (HCC) HTN (hypertension) ESRD on hemodialysis (CMS/HCC) ([facility]) IgA nephropathy determined by biopsy of kidney Diverticulosis Nonrheumatic aortic valve stenosis Calcification of abdominal aorta ([facility]) Overview Signed 10/08/2023 4:44 PM by Jr [...] syncytial virus) Gastric ulceration Severe malnutrition (CMS/HCC) ([facility]) (Chronic) Pleural effusion Peritonitis due to fungus ([facility]) History of abdominal surgery Leg DVT (deep venous thromboembolism), acute, left (HCC) Ischemic ulcer of toe of left foot, 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) Tracheostomy dependence (HCC) Leukocytosis Decubitus ulcer of sacral region, unstageable (HCC) Pneumonia of both lungs due to methicillin susceptible Staphylococcus aureus (MSSA) (HCC) Sacral osteomyelitis (CMS/HCC) (HCC) Acute respiratory failure with hypoxia ([facility]) [J96.01] Tracheostomy care ([facility]) [Z43.0] Pulmonary embolism ([facility]) 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 (current) use of antibiotics Complication of tracheostomy [...] (70.3 kg) Mental Status: {ROSENDO Patient Mental Status:19930} IV Access: {ROSENDO IV Access:43565} Nursing Mobility/ADLs: Walking {CHRISTY ADL:56467::"Independent"} Transfer {CHRISTY ADL:21751::"Independent"} Bathing {CHRISTY ADL:64492::"Independent"} Dressing {CHRISTY ADL:35617::"Independent"} Toileting {CHRISTY ADL:35608::"Independent"} Feeding {CHRISTY ADL:13323::"Independent"} Wound Care Coordinator {CHRISTY ADL:78383::"Independent"} Med Delivery {yes/no:78060} Wound Care Documentation and Therapy: Wound/Incision 11/13/24 Pressure Injury Sacrum (Active) Site Assessment Red;[place] 03/21/25 0402 Mahnaz-Wound Assessment [place] 03/13/251999 Drainage Description Sanguineous 03/13/251999 Odor Malodorous/putrid 03/13/25 2000 Drainage Amount Scant [...] Site Assessment Black;Painful 03/21/25 0402 Mahnaz-Wound Assessment [place] 03/21/25 0402 Odor None 03/18/25 1500 Drainage [...] Number of days: 7 Elimination: Continence: Bowel: {yes/no:18742} Bladder: {yes/no:64910} Urinary Catheter: {ROSENDO Urinary Catheter:32968} Colostomy/Ileostomy/Ileal Conduit: {YES / NO:} Date of Last BM: Intake/Output Summary (Last 24 hours) at 03/21/2025 1206 Last data filed at 03/20/2025 1523 Gross per 24 hour Intake 300 ml Output -- Net 300 ml I/O last 3 completed shifts: In: 1338.9 (19 mL/kg) [P.O.:240; I.V.:1098.9 (15.6 mL/kg)] Out: - (0 mL/kg) Weight: 70.3 kg Safety Concerns: {ROSENDO Safety Concerns:62105} Impairments/Disabilities: {ROSENDO Impairments/Disabilities:11644} Nutrition Therapy: Current Nutrition Therapy: {ROSENDO Diet List:98834} Routes of Feeding: {routes of feedin} Liquids: {liquid consistency:12969} Daily Fluid Restriction: {daily fluid restriction:85704} Last Modified Barium Swallow with Video (Video Swallowing Test): {done not done:39578} Treatments at the Time of Hospital Discharge: Respiratory Treatments: Oxygen Therapy: {Therapy; copd oxygen:75538} Ventilator: {ROSENDO Ventilator:24054} Rehab Therapies: {GEN THERAPY DISCIPLINE SCAL:4367688} Weight Bearing Status/Restrictions: {POD WEIGHT BEARIN} Other Medical Equipment (for information only, NOT a DME order): {Assistive Devices DME:11843} Other Treatments: Patient's personal belongings (please select all that are sent with patient): {ROSENDO Patient Belongings:47381} RN SIGNATURE: {E-signature:66973} CASE MANAGEMENT/SOCIAL WORK SECTION Inpatient Status Date: 02-10-25 Discharging to Facility/ Agency Name: [facility] Address:[address] [place] [address] Fax: Dialysis Facility (if applicable) Name: Address: Dialysis Schedule: Phone: Fax: Director Digital Catalogue/Wire Drawing Die Maker signature: ICIAN SECTION Name: Jun Snyder Prognosis: fair Condition at Discharge: stable Rehab Potential (if transferring to Rehab): fair Recommended Labs or Other Treatments After Discharge: none The individual is being admitted to a nursing facility directly from an [facility] or a unit of a [facility] that is not operated by or licensed by [facility] under section 5119.14 or 5160-3-15.1 5 [...] H&P PHYSICIAN SIGNATURE: documented in this encounter [facility] 03-14-2025 Nurse Note Patient Name: Jun Snyder Patient : 1965 Acct: [id number] Date of Admission: 03/13/2025 Room/Bed: [facility] A Code Status: Full Code Allergies: [...] - Before each treatment: Dialysis Machine No.: [id number] RO Machine Number: [id number] Dialyzer Lot No.: [id number] Tubing Lot Number: [id number] All Connections Secure: Yes Venous Parameters Set: Yes Arterial Parameters Set: Yes NS Bag: Yes Saline Line Double Clamped: Yes Dialyzer: Nipro Prime Volume (mL): 200 mL RO Machine Number: [id number] RO Machine Log Sheet Completed: Yes Machine Alarm Self Test: Completed, Passed (03/14/25 1135) Air Foam Detector: Tested, Proper Function, pH Reading Extracorporeal Circuit Tested for Integrity: Yes Machine Conductivity: 13.7 Manual Conductivity: 13.6 Manual Ph: 7 Bleach Test (Neg): Yes Bath Temperature: 36 C (96.8 F) Conductivity Meter Serial #: [id number] Machine Functioning Alarm Free? Yes Dialysis Bath: [...] Yes pt alert, lines secure removed 1415 06/18/25 1537 -- -- -- -- -- -- [...] Other (Comment) (to inform patient arrival from [facility] emergency room and need for orders) Provider [...] Acute respiratory failure with hypoxia ([facility]) [J96.01] Tracheostomy care ([facility]) [Z43.0] Pulmonary embolism (HCC) 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 (current) use of antibiotics Complication of tracheostomy (CMS/HCC) (HCC) BRBPR (bright red blood per rectum) Hemoptysis SOB (shortness of breath) [3] T [facility] 03-14-2025 Consult note Formatting of th is note is different from the original. [facility] Consult Note Consults HPI Jun is [...] 0 min Stress: Stress Concern Present (02/21/2025) [place] [facility] - Occupational Stress Questionnaire Feeling of Stress : To some extent Social Connections: Unknown (02/21/2025) Social Connection and Isolation Panel [NHANES] Frequency of Communication with Friends and Family: More than three times a week Frequency of Social Gatherings with Friends and Family: Patient declined Attends Tenriism Services: Patient declined Active Member of Clubs [...] and sacral wound. Please message me through Tk20 chat with any questions or concerns. Wellington Nicole MD 03/14/2025 10:43 AM [facility] [address], [address] [place] [address] Office: [phone] [1] Past Medical History: Diagnosis Date Acute renal failure (ARF) ([facility]) 10/19/2019 Anemia 12/30/2021 Calcification of abdominal aorta ([facility]) 10/08/202309/[address] abd Diverticulosis 10/08/2023 [place]) 10/26/2019 [place]od[place]) HTN (hypertension) 12/01/2022 Hypertension IgA nephropathy IgA nephropathy determined by biopsy of kidney 10/26/2019 Missed vaccination due to patient refusal 10/08/2023 Has a number of non-scientific based beliefs which interfere with his understanding and acceptance of the medical benefit of vaccination. Nonrheumatic aortic valve stenosis 10/08/2023 Paroxysmal A-fib ([facility] ([facility]) 08/18/2023 Tobacco abuse 10/08/2023 [2] Family History [...] OR ondansetron, polyethylene glycol (PEG) [address] [facility] 03-14-2025 Note Formatting of this n ote might be different from the original. Care Management Progress Note Pt was sent to ER from dialysis due to shortness of breath. Needs PVR of BLE. Nephrology, Vascular and therapies are following. Wants to return to [facility]. Is a bed hold, but if they can skill him they would like to.. Length of Stay (Days): 1 GMLOS: No GMLOS Documented [facility] 03-14-2025 Note Formatting of this n ote might be different from the original. Care Management Progress Note Pt was sent to ER from dialysis due to shortness of breath. Needs PVR of BLE. Nephrology, Vascular and therapies are following. Wants to return to [facility]. Is a bed hold, but if they can skill him they would like to.. Length of Stay (Days): 1 GMLOS: No GMLOS Documented [facility] 03-14-2025 Consult note Associated Order (s): IP CONSULT TO CARDIOLOGY [facility] Cardiology /Electrophysiology Consult Note Reason for Consult/Chief Complaint: Volume overload, afib rvr Referring provider: Dr Kidd Established helmet hat brim cutter: Dr Shah History of Present Illness: Jun [...] to select rehab. He recently was at [facility] for Klebsiella pneumonia, hemoptysis and [...] of Cardiovascular Disease, Division of Heart Failure [facility] [place] 3:25 PM 03/14/25 [facility] [employer] Work Phone: 03-14-2025 Consult note Associated Order (s): INPATIENT CONSULT TO WOUND CARE PROVIDERS Images from the original note were not included. [facility] Wound VAC CONSULT Note Jun Snyder [...] to follow Recommend to follow up at [facility] wound care center after hospital discharge. [...] Date Acute renal failure (ARF) ([facility]) 10/19/2019 Anemia 12/30/2021 Calcification of abdominal aorta ([facility]) 10/08/202309/[address] abd Diverticulosis 10/08/2023 ESRD on hemodialysis ([facility]) ([facility]) 10/26/2019 Hemodialysis [place] ([facility]) HTN (hypertension) 12/01/2022 Hypertension IgA nephropathy IgA nephropathy determined by biopsy of kidney 10/26/2019 Missed vaccination due to patient refusal 10/08/2023 Has a number of non-scientific based beliefs which interfere with his understanding and acceptance of the medical benefit of vaccination. Nonrheumatic aortic valve stenosis 10/08/2023 Paroxysmal A-fib ([facility] ([facility]) 08/18/2023 Tobacco abuse 10/08/2023 [2] Past Surgical History: Procedure Laterality Date APPENDECTOMY CARDIAC CATHETERIZATION N/A 10/09/2024 Performed by Bob Watson MD at [facility] Cardiac Cath/EP Lab CARDIAC CATHETERIZATION Bilateral 11/01/2024 Performed by Bob Watson MD at [facility] Cardiac Cath/EP Lab CARDIAC CATHETERIZATION N/A 11/01/2024 Performed by Bob Watson MD at [facility] Cardiac Cath/EP Lab COLONOSCOPY N/A 01/24/2025 Performed by Chadd Davis MD at [facility] ENDOSCOPY FISTULAGRAM (HISTORICAL) Left 09/15/2021 LEFT UPPER ARM HX AV FISTULA CREATION IR EMBOLIZATION 10/14/2024 IR EMBOLIZATION 10/14/2024 [facility] SPECIAL PROCEDURES IR FISTULAGRAM 08/07/2022 IR FISTULAGRAM [...] DO at 03/19/2025 4:[address] [facility] 03-14-2025 Note Formatting of this n ote might be different from the original. [place] [facility] request. Await review and response regarding ability to accept. [facility] notified. [facility] 03-14-2025 Note Formatting of this n ote might be different from the original. [place] [facility] request. Await review and response regarding ability to accept. [facility] notified. [facility] 03-14-2025 Note Referral placed to [facility] per [facility] request. Await review and response regarding ability to accept. [facility] notified. Electronically signed by NELSON Rodrigues [facility] 03-13-2025 Plan of care note Problem: Knowledge Deficit Goal: Patient/family/caregiver demonstrates understanding of disease process, treatment plan, medications, and discharge instructions Outcome: Progressing Problem: Potential for Compromised Skin Integrity Goal: Skin Integrity is Maintained or Improved Outcome: Progressing [facility] 03-13-2025 Nurse Note Removed wound vac that patient arrived to 5w from f pictures of all wound taken on rover and saved to chart NSWto DSD applied to sacral wound [facility] 03-13-2025 History and physical note USACS [...] Klebsiella pneumonia with lung abscess presented to [facility] ED with worsening shortness of breath. He [...] in upper abdomen He was transferred from [facility] to [facility] due to bed availability Past Medical [...] 0 min Stress: Stress Concern Present (02/21/2025) [place] [facility] - Occupational Stress Questionnaire Feeling of Stress : To some extent Social Connections: Unknown (02/21/2025) Social Connection and Isolation Panel [NHANES] Frequency of Communication with Friends and Family: More than three times a week Frequency of Social Gatherings with Friends and Family: Patient declined Attends Tenriism Services: Patient declined Active Member of Clubs [...] made to ensure accuracy; however, inadvertent computerized home care administrator errors may be present. Rubi Sanon MD, Division of Hospitalist Medicine [facility] Please forward a copy of this H&P to the patient's PCP. Thank you. Electronically signed by Rubi Sanon MD at 5:11 PM [1] Past Medical History: Diagnosis Date Acute renal failure (ARF) ([facility]) 10/19/2019 Anemia 12/30/2021 Calcification of abdominal aorta (HCC) 10/08/202309/[address] abd Diverticulosis 10/08/2023 ESRD on hemodialysis ([facility]) ([facility]) 10/26/2019 [place]) HTN (hypertension) 12/01/2022 Hypertension IgA nephropathy IgA nephropathy determined by biopsy of kidney 10/26/2019 Missed vaccination due to patient refusal 10/08/2023 Has a number of non-scientific based beliefs which interfere with his understanding and acceptance of the medical benefit of vaccination. Nonrheumatic aortic valve stenosis 10/08/2023 Paroxysmal A-fib ([facility]) ([facility]) 08/18/2023 Tobacco abuse 10/08/2023 [2] Past Surgical History: Procedure Laterality Date APPENDECTOMY CARDIAC CATHETERIZATION N/A 10/09/2024 Performed by Bob Watson MD at [facility] Cardiac Cath/EP Lab CARDIAC CATHETERIZATION Bilateral 11/01/2024 Performed by Bob Watson MD at [facility] Cardiac Cath/EP Lab CARDIAC CATHETERIZATION N/A 11/01/2024 Performed by Bob Watson MD at [facility] Cardiac Cath/EP Lab COLONOSCOPY N/A 01/24/2025 Performed by Chadd Davis MD at [facility] ENDOSCOPY FISTULAGRAM (HISTORICAL) Left 09/15/2021 LEFT UPPER ARM HX AV FISTULA CREATION IR EMBOLIZATION 10/14/2024 IR EMBOLIZATION 10/14/2024 [facility] SPECIAL PROCEDURES IR FISTULAGRAM 08/07/2022 IR FISTULAGRAM 08/07/2022 [facility] IR IMAGING TONSILLECTOMY (HISTORICAL) [3] Family History Problem Relation Name Age of Onset No Known Problems Mother No Known Problems Father [4] No current facility-administered medications for this encounter. [5] Allergies Allergen Reactions Lisinopril Swelling and Angioedema [facility] 03-13-2025 Note [facility] 03-13-2025 History and physical note [facility] Attending History and Physical Admit [...] Klebsiella pneumonia with lung abscess presented to [facility] ED with worsening shortness of breath. He [...] in upper abdomen He was transferred from [facility] ED to [facility] due to bed availability Past Medical [...] 0 min Stress: Stress Concern Present (02/21/2025) [place] [facility] - Occupational Stress Questionnaire Feeling of Stress : To some extent Social Connections: Unknown (02/21/2025) Social Connection and Isolation Panel [NHANES] Frequency of Communication with Friends and Family: More than three times a week Frequency of Social Gatherings with Friends and Family: Patient declined Attends Tenriism Services: Patient declined Active Member of Clubs [...] made to ensure accuracy; however, inadvertent computerized home care administrator errors may be present. Rubi Sanon MD,MD Division of Hospitalist Medicine [facility] Please forward a copy of this H&P to the patient's PCP. Thank you. Electronically signed by Rubi Sanon MD at 5:11 PM [1] Past Medical History: Diagnosis Date Acute renal failure (ARF) ([facility]) 10/19/2019 Anemia 12/30/2021 Calcification of abdominal aorta ([facility]) 10/08/202309/[address] abd Diverticulosis 10/08/2023 ESRD on hemodialysis ([facility]) ([facility]) 10/26/2019 [place]) HTN (hypertension) 12/01/2022 Hypertension IgA nephropathy IgA nephropathy determined by biopsy of kidney 10/26/2019 Missed vaccination due to patient refusal 10/08/2023 Has a number of non-scientific based beliefs which interfere with his understanding and acceptance of the medical benefit of vaccination. Nonrheumatic aortic valve stenosis 10/08/2023 Paroxysmal A-fib ([facility]) ([facility]) 08/18/2023 Tobacco abuse 10/08/2023 [2] Past Surgical History: Procedure Laterality Date APPENDECTOMY CARDIAC CATHETERIZATION N/A 10/09/2024 Performed by Bob Watson MD at [facility] Cardiac Cath/EP Lab CARDIAC CATHETERIZATION Bilateral 11/01/2024 Performed by Bob Watson MD at [facility] Cardiac Cath/EP Lab CARDIAC CATHETERIZATION N/A 11/01/2024 Performed by Bob Watson MD at [facility] Cardiac Cath/EP Lab COLONOSCOPY N/A 01/24/2025 Performed by Chadd Davis MD at [facility] ENDOSCOPY FISTULAGRAM (HISTORICAL) Left 09/15/2021 LEFT UPPER ARM HX AV FISTULA CREATION IR EMBOLIZATION 10/14/2024 IR EMBOLIZATION 10/14/2024 [facility] SPECIAL PROCEDURES IR FISTULAGRAM 08/07/2022 IR FISTULAGRAM 08/07/2022 [facility] IR IMAGING TONSILLECTOMY (HISTORICAL) [3] Family History Problem Relation Name Age of Onset No Known Problems Mother No Known Problems Father [4] No current facility-administered medications for this encounter. [5] Allergies Allergen Reactions Lisinopril Swelling and Angioedema documented in this encounter [facility] 03-13-2025 Emergency department Note When this RN came back from lunch Pt was already taken to [facility] by Consuelo Day. RN covering my lunch called report to RN at [facility]. [facility] 03-13-2025 Emergency department Note When this RN came back from lunch Pt was already taken to [facility] by Consuelo Day. RN covering my lunch called report to RN at [facility]. Called report to SWEETIE Linder at 5W. Consuelo Johnson at bedside to transport patient to [facility]. Emergency Department Encounter Pt Name: Jun Snyder Birthdate 1965 Date of evaluation: 03/13/2025 Provider: Keiry Solares MD CHIEF COMPLAINT Chief Complaint Patient presents with Shortness of Breath Pt arrived from longterm via EMS. Pt was starting dialysis and [...] Hoffman, due to no available beds at [facility] and available beds at [facility] patient wishes to be transferred. I discussed the case with Dr. Sanon at [facility] who accepts patient for transfer. Chronic conditions and social determinants of health affecting care: atrial fibrillation, ESRD DISPOSITION/PLAN Admit 03/13/2025 02:55:43 PM Keiry Solares MD Emergency Medicine [1] Past Medical History: Diagnosis Date Acute renal failure (ARF) ([facility]) 10/19/2019 Anemia 12/30/2021 Calcification of abdominal aorta (HCC) 10/08/202309/[address] abd Diverticulosis 10/08/2023 ESRD on hemodialysis ([facility]) ([facility]) 10/26/2019 Hemodialysis patient ([facility]) ([facility]) HTN (hypertension) 12/01/2022 Hypertension IgA nephropathy IgA nephropathy determined by biopsy of kidney 10/26/2019 Missed vaccination due to patient refusal 10/08/2023 Has a number of non-scientific based beliefs which interfere with his understanding and acceptance of the medical benefit of vaccination. Nonrheumatic aortic valve stenosis 10/08/2023 Paroxysmal A-fib ([facility]) ([facility]) 08/18/2023 Tobacco abuse 10/08/2023 Keiry Solares MD 03/13/252115 documented in this encounter [facility] 03-13-2025 Emergency department Note Called report to SWEETIE Linder at [address]W. [facility] 03-13-2025 Emergency department Note Consuelo Johnson at bedside to transport patient to [facility]. [facility] 03-13-2025 Physician Emergen cy department Note Emergency Department Encounter Pt Name: Jun Snyder Birthdate 1965 Date of evaluation: 03/13/2025 Provider: Keiry Solares MD CHIEF COMPLAINT Chief Complaint Patient presents with Shortness of Breath Pt arrived from longterm via EMS. Pt was starting dialysis and [...] Hoffman, due to no available beds at [facility] and available beds at [facility] patient wishes to be transferred. I discussed the case with Dr. Sanon at [facility] who accepts patient for transfer. Chronic conditions and social determinants of health affecting care: atrial fibrillation, ESRD DISPOSITION/PLAN Admit 03/13/2025 02:55:43 PM Keiry Solares MD Emergency Medicine [1] Past Medical History: Diagnosis Date Acute renal failure (ARF) ([facility]) 10/19/2019 Anemia 12/30/2021 Calcification of abdominal aorta ([facility]) 10/08/202309/[address] abd Diverticulosis 10/08/2023 ESRD on hemodialysis ([facility]) ([facility]) 10/26/2019 Hemodialysis patient ([facility]) ([facility]) HTN (hypertension) 12/01/2022 Hypertension IgA nephropathy IgA nephropathy determined by biopsy of kidney 10/26/2019 Missed vaccination due to patient refusal 10/08/2023 Has a number of non-scientific based beliefs which interfere with his understanding and acceptance of the medical benefit of vaccination. Nonrheumatic aortic valve stenosis 10/08/2023 Paroxysmal A-fib ([facility]) ([facility]) 08/18/2023 Tobacco abuse 10/08/2023 Keiry Solares MD 03/13/252115 [facility] 03-08-2025 History of Presen t illness Narrative Pt was followed by the Palliative Care Team during hospitalization at [facility]. Provider is recommending continued Palliative follow up in the community. Referral made too [facility] Palliative Care Team, faxed info to [phone] documented in this encounter [facility] 03-08-2025 Telephone encount er Note 2nd attempt called and spoke to the Alyssa the Nurse for the patient at the facility he lives at. She states Sabino is the person who schedules the appointments and she is on vacation and wont be back till next Wednesday. I will try again next wednesday [facility] 03-08-2025 Miscellaneous Notes Formattin g of [...] this? Thank you documented in this encounter [facility] 03-05-2025 History of Presen t illness Narrative Images from the original note were not included. PHYSICAL THERAPY [facility] Treatment Note Name/MRN: Jair Snyder ([id number]) Date of : 1965 Age: 59 y.o. Room/Bed: W3-334/W3-334 A Discharge Recommendation: Jail Facility Equipment Needed: [...] any questions or concerns Bree Molina APRN SECURITY VEHICLE PATROL OFFICER A-G SUPERVISOR PROP MAKING [facility] [phone] I reviewed with STUDENT SERVICES COUNSELOR-SECURITY VEHICLE PATROL OFFICER the medical history and the findings on physical examination. I discussed the patient s diagnosis and concur with the treatment plan as documented in his note. Please call [phone] or message me through [employer] with any questions or concerns. [facility] Anticoagulation Management Service ([facility]) Inpatient Warfarin Consult HPI: Jun Snyder is a 59 y.o. male admitted on 02/20/2025 for Hemoptysis [R04.2]. Medical History[1] Patient is on warfarin for mechanical AVR and has a goal INR 2.0 - 3.0. Patient was referred to [facility], but so far has been managed at facilities, most recently [facility]. Pt's home dose of warfarin is 1.5mg [...] over when discharged from facility. Tiffanie Dial [facility] Consult Service is available daily [phone] via [employer] Secure Chat. [1] Past Medical History: Diagnosis Date Acute renal failure (ARF) ([facility]) 10/19/2019 Anemia 12/30/2021 Calcification of abdominal aorta ([facility]) 10/08/202309/[address] abd Diverticulosis 10/08/2023 [place]) 10/26/2019 Hemod[place]) HTN (hypertension) 12/01/2022 Hypertension IgA nephropathy IgA nephropathy determined by biopsy of kidney 10/26/2019 Missed vaccination due to patient refusal 10/08/2023 Has a number of non-scientific based beliefs which interfere with his understanding and acceptance of the medical benefit of vaccination. Nonrheumatic aortic valve stenosis 10/08/2023 Paroxysmal A-fib ([facility] ([facility]) 08/18/2023 Tobacco abuse 10/08/2023 Hospitalist Progress Note - [facility] ([facility]) 03/05/2025 7:13 AM [phone]: Please page me for patient care issues. [phone]: Please page [facility] Hospitalist - [facility] for any issues. Subjective and [...] was bright red and it stopped just DOOR TECHNICIAN when in transport. Adult diet Regular Dietary [...] - (0 mL/kg) Weight: 60.8 kg @IODETAILS@ @[id number]@ Medications: Continuous Meds[1] Scheduled Meds[2] Recent Labs [...] "CHOL" No results found for: "PHART", "PO2ART", "[id number]" Recent Labs 03/04/25 0156 03/04/25 0946 03/05/25 [...] medically stable for discharge - Location - [facility] ([facility]) - Pending the following - [...] DO Division of Hospitalist Medicine Inpatient Medical Services/[facility] [1] heparin, 5-30 Units/kg/hr, Last [...] were not included. PHYSICAL THERAPY [facility] Name/MRN: Jair Snyder ([id number]) Date: 03/04/2025 Attempted to initiate PT this date; upon arrival, patient states he is needs to have a bowel movement and does not want to do PT. Offered to ambulate patient to bathroom or use of a bedpan however patient declines. Will continue to follow. Emily Stanley DOOR TECHNICIAN Cosigned by Darryn Tay, PT at 03/04/2025 3:38 PM EDT Hospitalist Progress Note - [facility] ([facility]) 03/04/2025 9:11 AM [phone]: Please page me for patient care issues. [phone]: Please page [facility] Hospitalist - [facility] for any issues. Subjective and [...] was bright red and it stopped just DOOR TECHNICIAN when in transport. Adult diet Regular Dietary [...] - (0 mL/kg) Weight: 60.8 kg @IODETAILS@ @[id number]@ Medications: Continuous Meds[1] Scheduled Meds[2] Recent Labs [...] "CHOL" No results found for: "PHART", "PO2ART", "[id number]" Recent Labs 03/02/25 0004 03/03/25 0212 03/04/25 [...] - 03/04 - 05/05 - Location - [facility] ([facility]) - Pending the following - INR 1.8, [...] DO Division of Hospitalist Medicine Inpatient Medical Services/[facility] [1] heparin, 5-30 Units/kg/hr, Last [...] electrolyte and CBC daily Maryam Marcelo DO [facility] Anticoagulation Management Service ([facility]) Inpatient Warfarin Consult HPI: Jun Snyder is a 59 y.o. male admitted on 02/20/2025 for Hemoptysis [R04.2]. Medical History[1] Patient is on warfarin for mechanical AVR and has a goal INR 2.0 - 3.0. Patient was referred to [facility], but so far has been managed at facilities, most recently [facility]. Pt's home dose of warfarin is 1.5mg [...] Date INR Dose 03/04 1.5 7.5 mg 03/03 1.6 6 mg 03/02 1.4 5mg 6 1.4 4mg 02/28 1.3 3mg 02/27 1.3 [...] PharmD [facility] Consult Service is available daily [phone] via [employer] Secure Chat. [1] Past Medical History: Diagnosis Date Acute renal failure (ARF) ([facility]) 10/19/2019 Anemia 12/30/2021 Calcification of abdominal aorta ([facility]) 10/08/202309/[address] abd Diverticulosis 10/08/2023 [place]) 10/26/2019 [place]) HTN (hypertension) 12/01/2022 Hypertension IgA nephropathy IgA nephropathy determined by biopsy of kidney 10/26/2019 Missed vaccination due to patient refusal 10/08/2023 Has a number of non-scientific based beliefs which interfere with his understanding and acceptance of the medical benefit of vaccination. Nonrheumatic aortic valve stenosis 10/08/2023 Paroxysmal A-fib ([facility]) ([facility]) 08/18/2023 Tobacco abuse 10/08/2023 Hospitalist Progress Note - [facility] - [employer] ([facility]) 03/03/2025 8:37 AM [phone]: Please page me for patient care issues. [phone]: Please page [facility] Hospitalist - [facility] for any issues. Subjective and [...] was bright red and it stopped just DOOR TECHNICIAN when in transport. Adult diet Regular Dietary [...] (0.4 mL/kg) [Drains:25] Weight: 60.8 kg @IODETAILS@ @[id number]@ Medications: Continuous Meds[1] Scheduled Meds[2] Recent Labs [...] "CHOL" No results found for: "PHART", "PO2ART", "[id number]" Recent Labs 03/01/25 0003 03/02/25 0004 03/03/25 [...] Date - 03/04 - Location - SNF ([facility]) - Pending the following - INR 1.8, [...] DO Division of Hospitalist Medicine Inpatient Medical Services/[facility] [1] heparin, 5-30 Units/kg/hr, Last [...] any questions or concerns Bree Molina APRN SECURITY VEHICLE PATROL OFFICER A-G SUPERVISOR PROP MAKING [facility] [phone] Pt seen and examined independently by me. I reviewed with DENIA-SECURITY VEHICLE PATROL OFFICER the medical history and the findings on physical examination. I discussed the patient s diagnosis and concur with the treatment plan as documented in his note. Please call [phone] or message me through [employer] with any questions or concerns. Hospitalist Progress Note - [facility] - [employer] ([facility]) 03/02/2025 8:20 AM [phone]: Please page me for patient care issues. [phone]: Please page [facility] Hospitalist - [facility] for any issues. Subjective and [...] was bright red and it stopped just DOOR TECHNICIAN when in transport. Adult diet Regular Dietary [...] (0.7 mL/kg) [Drains:40] Weight: 60.8 kg @IODETAILS@ @[id number]@ Medications: Continuous Meds[1] Scheduled Meds[2] Recent Labs [...] "CHOL" No results found for: "PHART", "PO2ART", "XMD2INQ" Recent Labs 02/28/25 0004 03/01/25 0003 03/02/25 [...] Date - 03/03 - Location - SNF ([facility]) - Pending the following - INR 1.8, [...] DO Division of Hospitalist Medicine Inpatient Medical Services/[facility] [1] heparin, 5-30 Units/kg/hr, Last Rate: 19 Units/kg/hr (03/02/25 0813) [2] B complex-vitamin C-folic acid, 1 capsule, Oral, Daily metoprolol tartrate, 25 mg, Oral, BID pantoprazole, 40 mg, Oral, BID AC piperacillin-tazobactam, 2,250 mg, IntraVENous, q6h QUEtiapine, 25 mg, Oral, Nightly sevelamer carbonate, 800 mg, Oral, TID WC warfarin, 5 mg, Oral, Once [facility] ([facility]) Inpatient Warfarin Consult HPI: Jun Snyder is a 59 y.o. male admitted on 02/20/2025 for Hemoptysis [R04.2]. Medical History[1] Patient is on warfarin for mechanical AVR and has a goal INR 2.0 - 3.0. Patient was referred to [facility], but so far has been managed at facilities, most recently [facility]. Pt's home dose of warfarin is 1.5mg [...] Dillon [facility] Consult Service is available daily [phone] via [employer] Secure Chat. [1] Past Medical History: Diagnosis Date Acute renal failure (ARF) ([facility]) 10/19/2019 Anemia 12/30/2021 Calcification of abdominal aorta ([facility]) 10/08/202309/[address] abd Diverticulosis 10/08/2023 ESRD on hemodialysis ([facility]) ([facility]) 10/26/2019 Hemodialysis patient ([facility]) ([facility]) HTN (hypertension) 12/01/2022 Hypertension IgA nephropathy IgA [...] were not included. PHYSICAL THERAPY [facility] Treatment Note Name/MRN: Jair Snyder ([id number]) Date of : 1965 Age: 59 y.o. Room/Bed: 3[facility]334 A Discharge Recommendation: Jail Facility Equipment Needed: [...] Timed Code Treatment Minutes: (gt-fa) Merlene León DOOR TECHNICIAN Cosigned by Anthony Black PT at 03/01/2025 4:34 PM EDT Associated attestation - Anthony Black PT - 03/01/2025 4:34 PM EDT Did not have opportunity today to speak to DOOR TECHNICIAN re: recommendation. Mobility appears to be consistent with homegoing, but know that medical conditions and other factors clearly could influence recommendations. Images from the original note were not included. OCCUPATIONAL THERAPY [facility] Treatment Note Name/MRN: Jair Snyder ([id number]) Date of : 1965 Age: 59 y.o. [...] any questions or concerns Bree Molina APRN SECURITY VEHICLE PATROL OFFICER A-G SUPERVISOR PROP MAKING [facility] [place] [phone] Pt seen and examined independently by me. I reviewed with Jun Maki, the medical history and the findings on physical examination. I discussed the patient s diagnosis and concur with the treatment plan as documented in his note. Please call [phone] or message me through [employer] with any questions or concerns. Hospitalist Progress Note - [facility] - [employer] ([place]) 03/01/2025 9:51 AM [phone]: Please page me for patient care issues. [phone]: Please page [facility] Hospitalist - [facility] for any issues. Subjective and [...] was bright red and it stopped just DOOR TECHNICIAN when in transport. Adult diet Regular Dietary Orders (From admission, onward) Start Ordered 02/27/25 1254 Supplement:Breakfast, Dinner; Nepro w/CARB Steady Until discontinued Question Answer Comment Frequency Breakfast Frequency Dinner Select supplement: Nepro w/CARB Steady 02/27/25 1254 02/21/25 1021 Adult diet Regular Diet effective now Question: Diet type Answer: Regular 02/21/25 1021 No intake/output data recorded. @IODETAILS@ @[email or web address]@ Medications: Continuous Meds[1] Scheduled Meds[2] Recent Labs [...] "CHOL" No results found for: "PHART", "PO2ART", "[id number]" Recent Labs 02/27/25 0010 02/28/25 0004 03/01/25 [...] - 03/01 - 03/02 - Location - [facility] ([facility]) - Pending the following - INR 1.8, [...] DO Division of Hospitalist Medicine Inpatient Medical Services/[facility] [1] heparin, 5-30 Units/kg/hr, Last Rate: 18 Units/kg/hr (03/01/25 07) [2] B complex-vitamin C-folic acid, 1 capsule, Oral, Daily metoprolol tartrate, 25 mg, Oral, BID pantoprazole, 40 mg, Oral, BID AC piperacillin-tazobactam, 2,250 mg, IntraVENous, q6h QUEtiapine, 25 mg, Oral, Nightly sevelamer carbonate, 800 mg, Oral, TID WC warfarin, 4 mg, Oral, Once Images from the original note were not included. PHYSICAL THERAPY [facility] Name/MRN: Jair Snyder ([id number]) Date: 03/01/2025 Leaving for dialysis. Return later time/date for PT. Merlene León PTA Cosigned by Anthony Black PT at 03/01/2025 8:42 AM EDT [facility] ([facility]) Inpatient Warfarin Consult HPI: Jun Snyder is a 59 y.o. male admitted on 02/20/2025 for Hemoptysis [R04.2]. Medical History[1] Patient is on warfarin for mechanical AVR and has a goal INR 2.0 - 3.0. Patient was referred to [facility], but so far has been managed at facilities, most recently [facility]. Pt's home dose of warfarin is 1.5mg [...] Dillon [facility] Consult Service is available daily [phone] via [employer] Secure Chat. [1] Past Medical History: Diagnosis Date Acute renal failure (ARF) ([facility]) 10/19/2019 Anemia 12/30/2021 Calcification of abdominal aorta ([facility]) 10/08/202309/[address] abd Diverticulosis 10/08/2023 [place]) 10/26/2019 [place]od[place]) HTN (hypertension) 12/01/2022 Hypertension IgA nephropathy IgA nephropathy determined by biopsy of kidney 10/26/2019 Missed vaccination due to patient refusal 10/08/2023 Has a number of non-scientific based beliefs which interfere with his understanding and acceptance of the medical benefit of vaccination. Nonrheumatic aortic valve stenosis 10/08/2023 Paroxysmal A-fib [place] ([facility]) 08/18/2023 Tobacco abuse 10/08/2023 Nephrology Progress Note [...] any questions or concerns Bree Molina APRN SECURITY VEHICLE PATROL OFFICER A-G SUPERVISOR PROP MAKING [facility] [place] [phone] Pt seen and examined independently by me. I reviewed with STUDENT SERVICES COUNSELOR-SECURITY VEHICLE PATROL OFFICER the medical history and the findings on physical examination. I discussed the patient s diagnosis and concur with the treatment plan as documented in his note. Please call [phone] or message me through [employer] with any questions or concerns. Hospitalist Progress Note - [facility] [employer] [facility] [employer] ([facility]) 02/28/2025 8:23 AM [phone]: Please page me for patient care issues. [phone]: Please page [facility] Hospitalist - [facility] for any issues. Subjective and [...] was bright red and it stopped just DOOR TECHNICIAN when in transport. Adult diet Regular Dietary [...] [Urine:450 (0.2 mL/kg/hr)] Weight: 60.8 kg @IODETAILS@ @[id number]@ Medications: Continuous Meds[1] Scheduled Meds[2] Recent Labs [...] "CHOL" No results found for: "PHART", "PO2ART", "[id number]" Recent Labs 02/25/25 2345 02/27/25 0010 02/28/25 [...] 03/01 - 03/02 - Location - SNF ([facility]) - Pending the following - INR 2.0, [...] DO Division of Hospitalist Medicine Inpatient Medical Services/[facility] [1] heparin, 5-30 Units/kg/hr, Last Rate: 18 Units/kg/hr (02/28/25 0714) [2] B complex-vitamin C-folic acid, 1 capsule, Oral, Daily metoprolol tartrate, 25 mg, Oral, BID pantoprazole, 40 mg, Oral, qAM AC piperacillin-tazobactam, 4,500 mg, IntraVENous, q8h QUEtiapine, 25 mg, Oral, Nightly sevelamer carbonate, 800 mg, Oral, TID WC warfarin, 3 mg, Oral, Once Images from the original note were not included. [facility] Wound Care/[facility] Progress Note Jun Snyder [...] premedicated for pain with pain medication, per junior staff accountant, prior to wound VAC dressing change. Wet [...] apply Betadine and allow to dry, leave ADMITTING CLERK daily and PRN Left plantar heel - unstageable pressure injury (POA): -cleanse with NS, apply Betadine and allow to dry, leave TISHA daily and PRN Right wrist Abrasion: -cleanse with antibacterial soap/water, leave ADMITTING CLERK daily Sacral Stage 4 pressure injury (POA): [...] and change every 12 hours -resting on [facility] + bed at time of visit -waffle chair cushion if up in chair -Q2hr/PRN turns -glide sheets for T&R -continence checks Q1-2 Hrs/PRN Nutritional support Wound Care to follow Recommend to follow up at [facility] Outpatient wound care center after hospital discharge. Any questions or concerns please secure chat "[facility] wound/ostomy". Thank you for the consult! I [...] Date Acute renal failure (ARF) ([facility]) 10/19/2019 Anemia 12/30/2021 Calcification of abdominal aorta ([facility]) 10/08/202309/[address] abd Diverticulosis 10/08/2023 ESRD on hemodialysis ([facility]) ([facility]) 10/26/2019 [place]) HTN (hypertension) 12/01/2022 Hypertension IgA nephropathy IgA nephropathy determined by biopsy of kidney 10/26/2019 Missed vaccination due to patient refusal 10/08/2023 Has a number of non-scientific based beliefs which interfere with his understanding and acceptance of the medical benefit of vaccination. Nonrheumatic aortic valve stenosis 10/08/2023 Paroxysmal A-fib ([facility]) ([facility]) 08/18/2023 Tobacco abuse 10/08/2023 [2] Past Surgical History: Procedure Laterality Date APPENDECTOMY CARDIAC CATHETERIZATION N/A 10/09/2024 Performed by Bob Watson MD at [facility] Cardiac Cath/EP Lab CARDIAC CATHETERIZATION Bilateral 11/01/2024 Performed by Bob Watson MD at [facility] Cardiac Cath/EP Lab CARDIAC CATHETERIZATION N/A 11/01/2024 Performed by Bob Watson MD at [facility] Cardiac Cath/EP Lab COLONOSCOPY N/A 01/24/2025 Performed by Chadd Davis MD at [facility] ENDOSCOPY FISTULAGRAM (HISTORICAL) Left 09/15/2021 LEFT UPPER ARM HX AV FISTULA CREATION IR EMBOLIZATION 10/14/2024 IR EMBOLIZATION 10/14/2024 [facility] SPECIAL PROCEDURES IR FISTULAGRAM 08/07/2022 IR FISTULAGRAM [...] Gill DO at 03/01/2025 2:50 PM EDT [facility] Anticoagulation Management Service ([facility]) Inpatient Warfarin Consult HPI: Jun Snyder is a 59 y.o. male admitted on 02/20/2025 for Hemoptysis [R04.2]. Medical History[1] Patient is on warfarin for mechanical AVR and has a goal INR 2.0 - 3.0. Patient was referred to [facility], but so far has been managed at facilities, most recently [facility]. Pt's home dose of warfarin is 1.5mg [...] will take over when discharged from facility. aFtuma Odonnell RPh [facility] Consult Service is available daily [phone] via [employer] Secure [employer]. [1] Past Medical History: Diagnosis Date Acute renal failure (ARF) ([facility]) 10/19/2019 Anemia 12/30/2021 Calcification of abdominal aorta ([facility]) 10/08/202309/[address] abd Diverticulosis 10/08/2023 ESRD on hemodialysis ([facility]) ([facility]) 10/26/2019 [place]) HTN (hypertension) 12/01/2022 Hypertension IgA nephropathy IgA nephropathy determined by biopsy of kidney 10/26/2019 Missed vaccination due to patient refusal 10/08/2023 Has a number of non-scientific based beliefs which interfere with his understanding and acceptance of the medical benefit of vaccination. Nonrheumatic aortic valve stenosis 10/08/2023 Paroxysmal A-fib ([facility]) ([facility]) 08/18/2023 Tobacco abuse 10/08/2023 Nephrology Progress Note [...] from the original note were not included. [facility] - Infectious Diseases Attending Progress Note [...] Total Energy Requirements (kcals/day): 30-35 kcal/kg = 6036-7044 kcal Weight Used for Protein Requirements: Current [...] lb) (08/28/24) % Weight Change (Calculated): -34.6 [place] Body Weight (lbs) (Calculated): 166 lbs [place] Body Weight (Kg) (Calculated): 75 kg % [place] Body Weight (Calculated): 81.1 % BMI (kg/m2) [...] to determine Glenys Juares RD, LD Contact: [phone] Images from the original note were not included. PHYSICAL THERAPY [facility] Name/MRN: Jair Snyder ([id number]) Date: 02/27/2025 Request for "see today" note, [...] Anthony Black PT Hospitalist Progress Note - [facility] - [employer] ([facility]) 02/27/2025 9:03 AM [phone]: Please page me for patient care issues. [phone]: Please page [facility] Hospitalist - [facility] for any issues. Subjective and [...] was bright red and it stopped just DOOR TECHNICIAN when in transport. Adult diet Regular Dietary Orders (From admission, onward) Start Ordered 02/21/25 1021 Adult diet Regular Diet effective now Question: Diet type Answer: Regular 02/21/25 1021 I/O last 3 completed shifts: In: 750 (12.3 mL/kg) [P.O.:750] Out: 450 (7.4 mL/kg) [Urine:450 (0.2 mL/kg/hr)] Weight: 60.8 kg @IODETAILS@ @[id number]@ Medications: Continuous Meds[1] Scheduled Meds[2] Recent Labs [...] "CHOL" No results found for: "PHART", "PO2ART", "[id number]" Recent Labs 02/25/25 0028 02/25/25 2345 02/27/25 [...] DO Division of Hospitalist Medicine Inpatient Medical Services/[facility] [1] heparin, 5-30 Units/kg/hr, Last Rate: 18 Units/kg/hr (02/27/25 0722) [2] B complex-vitamin C-folic acid, 1 capsule, Oral, Daily metoprolol tartrate, 25 mg, Oral, BID pantoprazole, 40 mg, Oral, qAM AC piperacillin-tazobactam, 4,500 mg, IntraVENous, q8h QUEtiapine, 25 mg, Oral, Nightly sevelamer carbonate, 800 mg, Oral, TID WC warfarin, 2 mg, Oral, Once [facility] Anticoagulation Management Service ([facility]) Inpatient Warfarin Consult HPI: Jun Snyder is a 59 y.o. male admitted on 02/20/2025 for Hemoptysis [R04.2]. Medical History[1] Patient is on warfarin for mechanical AVR and has a goal INR 2.0 - 3.0. Patient was referred to [facility], but so far has been managed at facilities, most recently [facility]. Pt's home dose of warfarin is 1.5mg [...] RPh [facility] Consult Service is available daily [phone] via [employer] Secure Chat. [1] Past Medical History: Diagnosis Date Acute renal failure (ARF) ([facility]) 10/19/2019 Anemia 12/30/2021 Calcification of abdominal aorta ([facility]) 10/08/202309/[address] abd Diverticulosis 10/08/2023 ESRD on hemodialysis ([facility]) ([facility]) 10/26/2019 [place]) HTN (hypertension) 12/01/2022 Hypertension IgA nephropathy IgA nephropathy determined by biopsy of kidney 10/26/2019 Missed vaccination due to patient refusal 10/08/2023 Has a number of non-scientific based beliefs which interfere with his understanding and acceptance of the medical benefit of vaccination. Nonrheumatic aortic valve stenosis 10/08/2023 Paroxysmal A-fib ([facility]) ([facility]) 08/18/2023 Tobacco abuse 10/08/2023 Images from the original note were not included. OCCUPATIONAL THERAPY [facility] Initial Evaluation Name/MRN: Jair Snyder ([id number]) Evaluation Date: 02/26/2025 Date of : 1965 Admission Date: 02/20/2025 5:41 PM Age: 59 y.o. Room/Bed: W3-334/W3-334 A Discharge Recommendation: Jail Facility Assessment IMPRESSION: [...] Problem List Diagnosis Date Noted Severe malnutrition ([facility]) ([facility]) 02/21/2025 Hemoptysis 02/20/2025 Complication of tracheostomy ([facility]) ([facility]) 01/19/2025 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 (current) use of antibiotics 01/12/2025 Acute respiratory failure with hypoxia ([facility]) [J96.01] 01/08/2025 Tracheostomy care ([facility]) [Z43.0] 01/08/2025 Pulmonary embolism ([facility]) 01/08/2025 Sacral osteomyelitis ([facility]) ([facility]) 01/03/2025 Pneumonia of both lungs due to methicillin susceptible Staphylococcus aureus (MSSA) ([facility]) 01/01/2025 Leukocytosis 12/30/2024 Decubitus ulcer of sacral region, unstageable ([facility]) 12/30/2024 Peritonitis due to fungus ([facility]) 11/30/2024 History of abdominal surgery 11/30/2024 Leg DVT (deep venous thromboembolism), acute, left ([facility]) 11/30/2024 Ischemic ulcer of toe of left foot, limited to breakdown of skin ([facility]) 11/30/2024 Tracheostomy dependence ([facility]) 11/30/2024 Pleural effusion 11/28/2024 Gastric ulceration 2024 Atrial flutter, unspecified type ([facility]) 10/03/2024 RSV (acute bronchiolitis due to respiratory syncytial virus) 10/03/2024 Diverticulosis 10/08/2023 Nonrheumatic aortic valve stenosis 10/08/2023 Calcification of abdominal aorta ([facility]) 10/08/2023 Missed vaccination due to patient refusal 10/08/2023 Tobacco abuse 10/08/2023 Alcohol use disorder in remission 10/08/2023 Paroxysmal A-fib ([facility]) ([facility]) 08/18/2023 HTN (hypertension) 12/01/2022 [place]) 10/26/2019 IgA nephropathy determined by biopsy of [...] of Care supervision is transferred to a [facility] Therapy Services Occupational Therapist. Goals and/or treatment plan was established in collaboration with patient/family/other representatives. Ro Sales MS, OTR/L [1] Past Medical History: Diagnosis Date Acute renal failure (ARF) ([facility]) 10/19/2019 Anemia 12/30/2021 Calcification of abdominal aorta ([facility]) 10/08/202309/[address] abd Diverticulosis 10/08/2023 [place]) 10/26/2019 Hemod[place]) HTN (hypertension) 12/01/2022 Hypertension IgA nephropathy IgA nephropathy determined by biopsy of kidney 10/26/2019 Missed vaccination due to patient refusal 10/08/2023 Has a number of non-scientific based beliefs which interfere with his understanding and acceptance of the medical benefit of vaccination. Nonrheumatic aortic valve stenosis 10/08/2023 Paroxysmal A-fib ([facility]) ([facility]) 08/18/2023 Tobacco abuse 10/08/2023 [2] Past Surgical History: Procedure Laterality Date APPENDECTOMY CARDIAC CATHETERIZATION N/A 10/09/2024 Performed by Bob Watson MD at [facility] Cardiac Cath/EP Lab CARDIAC CATHETERIZATION Bilateral 11/01/2024 Performed by Bob Watson MD at [facility] Cardiac Cath/EP Lab CARDIAC CATHETERIZATION N/A 11/01/2024 Performed by Bob Watson MD at [facility] Cardiac Cath/EP Lab COLONOSCOPY N/A 01/24/2025 Performed by Chadd Davis MD at [facility] ENDOSCOPY FISTULAGRAM (HISTORICAL) Left 09/15/2021 LEFT UPPER ARM HX AV FISTULA CREATION IR EMBOLIZATION 10/14/2024 IR EMBOLIZATION 10/14/2024 [facility] SPECIAL PROCEDURES IR FISTULAGRAM 08/07/2022 IR FISTULAGRAM [...] controlled No CP Adult diet Regular @IODETAILS@ @[email or web address]@ Medications: Continuous Meds[1] Scheduled Meds[2] Recent Labs [...] coumadin -- [facility]OT Will ask surg about PEG remove per request-- out Anticipated Discharge - Date - 02/27 - Location - Skilled Facility - Pending the following - course Total time spent (which include face to face and non face to face encounters) : 46 minutes See orders, continue POC Advance Directive: Full Code Ramón Romano MD, [facility] Hospitalist [1] heparin, 5-30 Units/kg/hr, Last Rate: [...] any questions or concerns Bree Molina APRN SECURITY VEHICLE PATROL OFFICER A-G SUPERVISOR PROP MAKING [facility] [phone] Pt seen and examined independently by me. I reviewed with, STUDENT SERVICES COUNSELOR-SECURITY VEHICLE PATROL OFFICER the medical history and the findings on physical examination. I discussed the patient s diagnosis and concur with the treatment plan as documented in his note. Please call [phone] or message me through [employer] with any questions or concerns. PULMONOLOGY CONSULT [...] from the original note were not included. [facility] Wound Care/NPWT Progress Note Jun Snyder [...] premedicated for pain with pain medication, per junior staff accountant, prior to wound VAC dressing change. Wet [...] apply Betadine and allow to dry, leave ADMITTING CLERK daily and PRN Left plantar heel - [...] to follow Recommend to follow up at [facility] Outpatient wound care center after hospital [...] Date Acute renal failure (ARF) ([facility]) 10/19/2019 Anemia 12/30/2021 Calcification of abdominal aorta ([facility]) 10/08/202309/[address] abd Diverticulosis 10/08/2023 ESRD on hemodialysis ([facility]) ([facility]) 10/26/2019 [place]) HTN (hypertension) 12/01/2022 Hypertension IgA nephropathy IgA nephropathy determined by biopsy of kidney 10/26/2019 Missed vaccination due to patient refusal 10/08/2023 Has a number of non-scientific based beliefs which interfere with his understanding and acceptance of the medical benefit of vaccination. Nonrheumatic aortic valve stenosis 10/08/2023 Paroxysmal A-fib ([facility]) ([facility]) 08/18/2023 Tobacco abuse 10/08/2023 [2] Past Surgical History: Procedure Laterality Date APPENDECTOMY CARDIAC CATHETERIZATION N/A 10/09/2024 Performed by Bob Watson MD at [facility] Cardiac Cath/EP Lab CARDIAC CATHETERIZATION Bilateral 11/01/2024 Performed by Bob Watson MD at [facility] Cardiac Cath/EP Lab CARDIAC CATHETERIZATION N/A 11/01/2024 Performed by Bob Watson MD at [facility] Cardiac Cath/EP Lab COLONOSCOPY N/A 01/24/2025 Performed by Chadd Davis MD at [facility] ENDOSCOPY FISTULAGRAM (HISTORICAL) Left 09/15/2021 LEFT UPPER ARM HX AV FISTULA CREATION IR EMBOLIZATION 10/14/2024 IR EMBOLIZATION 10/14/2024 [facility] SPECIAL PROCEDURES IR FISTULAGRAM 08/07/2022 IR FISTULAGRAM [...] needed (PRN constipation). [DISCONTINUED] epoetin rowan-epbx (Retacrit) 02355 UNIT/ML injection Inject 0.79 mL (7,900 Units) under the skin 1 (one) time per week. (Patient not taking: Reported on 02/21/2025) [DISCONTINUED] pantoprazole (ProtoNix) 40 MG injection Infuse 40 mg into a venous catheter 2 times daily. Cosigned by Ahsan Gill DO at 02/26/2025 4:59 PM EDT [facility] Anticoagulation Management Service ([facility]) Inpatient Warfarin Consult HPI: Jun Snyder is a 59 y.o. male admitted on 02/20/2025 for Hemoptysis [R04.2]. Medical History[1] Patient is on warfarin for mechanical AVR and has a goal INR 2.0 - 3.0. Patient was referred to [facility], but so far has been managed at facilities, most recently [facility]. Pt's home dose of warfarin is 1.5mg [...] Dillon [facility] Consult Service is available daily [phone] via [employer] Secure Chat. [1] Past Medical History: Diagnosis Date Acute renal failure (ARF) (HCC) 10/19/2019 Anemia 12/30/2021 Calcification of abdominal aorta (HCC) 10/08/202309/[address] abd Diverticulosis 10/08/2023 [place]) 10/26/2019 [place]) HTN (hypertension) 12/01/2022 Hypertension IgA nephropathy IgA nephropathy determined by biopsy of kidney 10/26/2019 Missed vaccination due to patient refusal 10/08/2023 Has a number of non-scientific based beliefs which interfere with his understanding and acceptance of the medical benefit of vaccination. Nonrheumatic aortic valve stenosis 10/08/2023 Paroxysmal A-fib [place]) 08/18/2023 Tobacco abuse 10/08/2023 Nephrology Progress Note [...] were not included. PHYSICAL THERAPY [facility] Initial Evaluation Name/MRN: Jair Snyder ([id number]) Evaluation Date: 02/25/2025 Date of : 1965 Admission Date: 02/20/2025 5:41 PM Age: 59 y.o. Room/Bed: 3334/3334 A Discharge Recommendation: Jail Facility Equipment Needed: [...] Diagnosis Date Noted Hemoptysis 02/20/2025 Severe malnutrition ([facility]) ([facility]) 01/19/2025 Complication of tracheostomy ([facility]) ([facility]) 01/19/2025 FPC (current) use of antibiotics 01/12/2025 Acute respiratory failure with hypoxia ([facility]) [J96.01] 01/08/2025 Tracheostomy care ([facility]) [Z43.0] 01/08/2025 Pulmonary embolism ([facility]) 01/08/2025 Sacral osteomyelitis ([facility]) ([facility]) 01/03/2025 Pneumonia of both lungs due to methicillin susceptible Staphylococcus aureus (MSSA) ([facility]) 01/01/2025 Leukocytosis 12/30/2024 Decubitus ulcer of sacral region, unstageable ([facility]) 12/30/2024 Peritonitis due to fungus ([facility]) 11/30/2024 History of abdominal surgery 11/30/2024 Leg DVT (deep venous thromboembolism), acute, left ([facility]) 11/30/2024 Ischemic ulcer of toe of left foot, limited to breakdown of skin ([facility]) 11/30/2024 Tracheostomy dependence ([facility]) 11/30/2024 Pleural effusion 11/28/2024 Gastric ulceration 2024 Atrial flutter, unspecified type ([facility]) 10/03/2024 RSV (acute bronchiolitis due to respiratory syncytial virus) 10/03/2024 Diverticulosis 10/08/2023 Nonrheumatic aortic valve stenosis 10/08/2023 Calcification of abdominal aorta ([facility]) 10/08/2023 Missed vaccination due to patient refusal 10/08/2023 Tobacco abuse 10/08/2023 Alcohol use disorder in remission 10/08/2023 Paroxysmal A-fib ([facility]) ([facility]) 08/18/2023 HTN (hypertension) 12/01/2022 ESRD on hemodialysis ([facility]) ([facility]) 10/26/2019 IgA nephropathy determined by biopsy of kidney 10/26/2019 BRBPR (bright red blood per rectum) 01/19/2025 Aortic stenosis 10/03/2024 Upper GI bleed 10/03/2024 S/P AVR 10/03/2024 Acute hypoxic respiratory failure ([facility]) 10/03/2024 Acute encephalopathy 10/03/2024 Pneumoperitoneum 10/03/2024 Anemia [...] of Care supervision is transferred to a [facility] Therapy Services Physical Therapist. Goals and/or treatment plan was established in collaboration with patient/family/other representatives. [1] Past Medical History: Diagnosis Date Acute renal failure (ARF) ([facility]) 10/19/2019 Anemia 12/30/2021 Calcification of abdominal aorta ([facility]) 10/08/202309/[address] abd Diverticulosis 10/08/2023 [place]) 10/26/2019 [place]) HTN (hypertension) 12/01/2022 Hypertension IgA nephropathy IgA nephropathy determined by biopsy of kidney 10/26/2019 Missed vaccination due to patient refusal 10/08/2023 Has a number of non-scientific based beliefs which interfere with his understanding and acceptance of the medical benefit of vaccination. Nonrheumatic aortic valve stenosis 10/08/2023 Paroxysmal A-fib [place]) 08/18/2023 Tobacco abuse 10/08/2023 [2] Past Surgical History: Procedure Laterality Date APPENDECTOMY CARDIAC CATHETERIZATION N/A 10/09/2024 Performed by Bob Watson MD at [facility] Cardiac Cath/EP Lab CARDIAC CATHETERIZATION Bilateral 11/01/2024 Performed by Bob Watson MD at [facility] Cardiac Cath/EP Lab CARDIAC CATHETERIZATION N/A 11/01/2024 Performed by Bob Watson MD at [facility] Cardiac Cath/EP Lab COLONOSCOPY N/A 01/24/2025 Performed by Chadd Davis MD at [facility] ENDOSCOPY FISTULAGRAM (HISTORICAL) Left 09/15/2021 LEFT UPPER ARM HX AV FISTULA CREATION IR EMBOLIZATION 10/14/2024 IR EMBOLIZATION 10/14/2024 [facility] SPECIAL PROCEDURES IR FISTULAGRAM 08/07/2022 IR FISTULAGRAM 08/07/2022 [facility] IR IMAGING TONSILLECTOMY (HISTORICAL) [...] today No CP Adult diet Regular @IODETAILS@ @[email or web address]@ Medications: Continuous Meds[1] Scheduled Meds[2] Recent Labs [...] Advance Directive: Full Code Ramón Romano MD, [facility] Hospitalist [1] heparin, 5-30 Units/kg/hr, Last Rate: 18 Units/kg/hr (02/26/25 0736) [2] B complex-vitamin C-folic acid, 1 capsule, Oral, Daily metoprolol tartrate, 25 mg, Oral, BID pantoprazole, 40 mg, Oral, qAM AC piperacillin-tazobactam, 4,500 mg, IntraVENous, q8h QUEtiapine, 25 mg, Oral, Nightly sevelamer carbonate, 800 mg, Oral, TID WC warfarin, 1.5 mg, Oral, Once [facility] Anticoagulation Management Service ([facility]) Inpatient Warfarin Consult HPI: Jun Snyder is a 59 y.o. male admitted on 02/20/2025 for Hemoptysis [R04.2]. Medical History[1] Patient is on warfarin for mechanical AVR and has a goal INR 2.0 - 3.0. Patient was referred to [facility], but so far has been managed at facilities, most recently [facility]. Pt's home dose of warfarin is 1.5mg [...] PharmD [facility] Consult Service is available daily [phone] via [employer] Secure Chat. [1] Past Medical History: Diagnosis Date Acute renal failure (ARF) ([facility]) 10/19/2019 Anemia 12/30/2021 Calcification of abdominal aorta ([facility]) 10/08/202309/[address] abd Diverticulosis 10/08/2023 [place]D [place] hemodialysis [place]) 10/26/2019 [place]od[place]) HTN (hypertension) 12/01/2022 Hypertension IgA nephropathy IgA nephropathy determined by biopsy of kidney 10/26/2019 Missed vaccination due to patient refusal 10/08/2023 Has a number of non-scientific based beliefs which interfere with his understanding and acceptance of the medical benefit of vaccination. Nonrheumatic aortic valve stenosis 10/08/2023 Paroxysmal A-fib [place]) 08/18/2023 Tobacco abuse 10/08/2023 Vancomycin therapy has been discontinued by Hussain Quintana on 02/24. Thank you for the consult. Pharmacy signing off for vancomycin dosing. Marissa Iglesias PharmD, Date: 02/24/25 Time: 4:08 PM Images from the original note were not included. [facility] - Infectious Diseases Attending [...] times Sob better Adult diet Regular @IODETAILS@ @[email or web address]@ Medications: Continuous Meds[1] Scheduled Meds[2] Recent Labs [...] "TRIG", "HDL", "LDLCALC", "CHOL" Recent Labs 02/22/259902/23/253102/24/25 0010 INR 1.4* 1.3* [...] intermittent dosing (placeholder), , Other, RX Placeholder [facility] Anticoagulation Management Service ([facility]) Inpatient Warfarin Consult HPI: Jun Snyder is a 59 y.o. male admitted on 02/20/2025 for Hemoptysis [R04.2]. Medical History[1] Patient is on warfarin for mechanical AVR and has a goal INR 2.0 - 3.0. Patient was referred to [facility], but so far has been managed at facilities, most recently [facility]. Pt's home dose of warfarin is 1.5mg [...] PharmD [facility] Consult Service is available daily [phone] via [employer] Secure Chat. [1] Past Medical History: Diagnosis Date Acute renal failure (ARF) ([facility]) 10/19/2019 Anemia 12/30/2021 Calcification of abdominal aorta ([facility]) 10/08/202309/[address] abd Diverticulosis 10/08/2023 ESRD on hemodialysis ([facility]) ([facility]) 10/26/2019 [place]) HTN (hypertension) 12/01/2022 Hypertension IgA nephropathy IgA nephropathy determined by biopsy of kidney 10/26/2019 Missed vaccination due to patient refusal 10/08/2023 Has a number of non-scientific based beliefs which interfere with his understanding and acceptance of the medical benefit of vaccination. Nonrheumatic aortic valve stenosis 10/08/2023 Paroxysmal A-fib ([facility]) ([facility]) 08/18/2023 Tobacco abuse 10/08/2023 Images from the original note were not included. [facility] - Infectious Diseases Attending Progress Note [...] from the original note were not included. [facility], Pulmonary Medicine [phone] PULMONARY PROGRESS NOTE. Patient - Jun Snyder, [...] alert. LABS and Studies: CBC: Recent Labs 02/21/255202/22/259902/23/25 003 WBC 7.0 9.0 [...] PM EDT I have personally performed a [id number]-uu-[id number] diagnostic evaluation on this patient on date of service 02/23/25. History, labs, imaging studies, and electronic medical record have been reviewed by me. This note documented by the [x]plumbing warehouse helper []ARMIN reflects my history, exam, and medical [...] weekend. Please reach out with any concerns [facility] Anticoagulation Management Service ([facility]) Inpatient Warfarin Consult HPI: Jun Snyder is a 59 y.o. male admitted on 02/20/2025 for Hemoptysis [R04.2]. Medical History[1] Patient is on warfarin for mechanical AVR and has a goal INR 2.0 - 3.0. Patient was referred to [facility], but so far has been managed at facilities, most recently [facility]. Pt's home dose of warfarin is 1.5mg [...] PharmD [facility] Consult Service is available daily [phone] via [employer] Secure Chat. [1] Past Medical History: Diagnosis Date Acute renal failure (ARF) ([facility]) 10/19/2019 Anemia 12/30/2021 Calcification of abdominal aorta ([facility]) 10/08/202309/[address] abd Diverticulosis 10/08/2023 ESRD on hemodialysis ([facility]) ([facility]) 10/26/2019 [place]) HTN (hypertension) 12/01/2022 Hypertension IgA nephropathy IgA nephropathy determined by biopsy of kidney 10/26/2019 Missed vaccination due to patient refusal 10/08/2023 Has a number of non-scientific based beliefs which interfere with his understanding and acceptance of the medical benefit of vaccination. Nonrheumatic aortic valve stenosis 10/08/2023 Paroxysmal A-fib ([facility]) ([facility]) 08/18/2023 Tobacco abuse 10/08/2023 Hospitalist Progress Note [...] able No CP Adult diet Regular @IODETAILS@ @[email or web address]@ Medications: Continuous Meds[1] Scheduled Meds[2] Recent Labs 02/21/25 00502/22/250 02/23/25 0032 WBC 7.0 9.0 8.6 HGB 8.3* 7.8* 8.6* PLT 316 282 316 Recent Labs 02/21/25 00502/22/250 02/23/25 0032 NA 131* 132* 135* K [...] Advance Directive: Full Code Ramón Romano MD, [facility] Hospitalist [1] heparin, 5-30 Units/kg/hr, Last Rate: 18 Units/kg/hr (02/23/25 0718) [2] B complex-vitamin C-folic acid, 1 capsule, Oral, Daily metoprolol tartrate, 25 mg, Oral, BID pantoprazole, 40 mg, Oral, qAM AC QUEtiapine, 25 mg, Per G Tube, Nightly sevelamer carbonate, 800 mg, Oral, TID WC vancomycin (Vancocin) intermittent dosing (placeholder), , Other, RX Placeholder Images from the original note were not included. [facility] Wound Care/NPWT Progress Note Jun Snyder [...] for pain with PO pain medication, per junior staff accountant, prior to wound VAC dressing change. Wet [...] apply Betadine and allow to dry, leave ADMITTING CLERK daily and PRN Left plantar heel - unstageable pressure injury (POA): -cleanse with NS, apply Betadine and allow to dry, leave TISHA daily and PRN Right wrist Abrasion: -cleanse with antibacterial soap/water, leave ADMITTING CLERK daily Sacral Stage 4 pressure injury (POA): [...] to follow Recommend to follow up at [facility] Outpatient wound care center after hospital [...] 12/30/2021 Calcification of abdominal aorta ([facility]) 10/08/202309/[address] abd Diverticulosis 10/08/2023 [place]D [place] hemodialysis [place]) 10/26/2019 Hemod[place] [place]) HTN (hypertension) 12/01/2022 Hypertension IgA nephropathy IgA nephropathy determined by biopsy of kidney 10/26/2019 Missed vaccination due to patient refusal 10/08/2023 Has a number of non-scientific based beliefs which interfere with his understanding and acceptance of the medical benefit of vaccination. Nonrheumatic aortic valve stenosis 10/08/2023 Paroxysmal A-fib [place]) 08/18/2023 Tobacco abuse 10/08/2023 [2] Past Surgical History: Procedure Laterality Date APPENDECTOMY CARDIAC CATHETERIZATION N/A 10/09/2024 Performed by Bob Watson MD at [facility] Cardiac Cath/EP Lab CARDIAC CATHETERIZATION Bilateral 11/01/2024 Performed by Bob Watson MD at [facility] Cardiac Cath/EP Lab CARDIAC CATHETERIZATION N/A 11/01/2024 Performed by Bob Watson MD at [facility] Cardiac Cath/EP Lab COLONOSCOPY N/A 01/24/2025 Performed by Chadd Davis MD at [facility] ENDOSCOPY FISTULAGRAM (HISTORICAL) Left 09/15/2021 LEFT UPPER ARM HX AV FISTULA CREATION IR EMBOLIZATION 10/14/2024 IR EMBOLIZATION 10/14/2024 [facility] SPECIAL PROCEDURES IR FISTULAGRAM 08/07/2022 IR FISTULAGRAM [...] needed (PRN constipation). [DISCONTINUED] epoetin rowan-epbx (Retacrit) 28755 UNIT/ML injection Inject 0.79 mL (7,900 Units) [...] 4.1 CL 91* 94* 99 CO2 25 25 GLUCOSE 74 121* 110* CALCIUM [...] any questions or concerns Bree Molina APRN SECURITY VEHICLE PATROL OFFICER A-G SUPERVISOR PROP MAKING [facility] [phone] Pt seen and examined independently by me. I reviewed with DENIA-SAMIA the medical history and the findings on physical examination. I discussed the patient s diagnosis and concur with the treatment plan as documented in his note. Please call [phone] or message me through [employer] with any questions or concerns. Pharmacy Managed [...] [] CrCl ml/min (Cockcroft-Gault, if BLOSSOM, no TALLOW PUMPER) Infectious Diagnosis: Pneumonia (target level = 15-20 [...] 4:36 PM Daryn Babcock PharmD (available on [employer]u) Images from the original note were not included. [facility], Pulmonary Medicine [phone] PULMONARY PROGRESS NOTE. Patient - Jun Snyder, Age - 59 y.o. - 1965 Room Number - W3-334/W3-334 A Consulting - Ramón Romano MD [id number] Date of Admission - 02/20/2025 5:41 PM [...] PM EDT I have personally performed a sjkt-lw-fiyo diagnostic evaluation on this patient on date of service 02/22/2025. History, labs, imaging studies, and electronic medical record have been reviewed by me. This note documented by the [x]plumbing warehouse helper []ARMIN reflects my history, exam, and medical [...] more bleeding issues Adult diet Regular @IODETAILS@ @[email or web address]@ Medications: Continuous Meds[1] Scheduled Meds[2] Recent Labs 02/20/25182402/21/253 02/22/25 0100 WBC 9.4 7.0 9.0 HGB 8.7* 8.3* 7.8* PLT 312 316 282 Recent Labs 02/20/25182402/21/253 02/22/25 0100 NA 133* 131* 132* K 3.1* 3.1* 3.4* CL 92* 91* 94* CO2 BUN 29* 29* 36* CREATININE 2.57* 2.89* 3.99* GLUCOSE 80 74 121* Recent Labs 02/21/25 0053 02/22/25 0100 AST [...] Advance Directive: Full Code Ramón Romano MD, [facility] Hospitalist [1] heparin, 5-30 Units/kg/hr, Last Rate: [...] were not included. OCCUPATIONAL THERAPY [facility] Name/MRN: Jair Snyder ([id number]) Date: 02/22/2025 PT refusing to participate in [...] lower extremity edema Data: Labs: Recent Labs 05/182402/21/253 02/22/25 0100 WBC 9.4 7.0 9.0 HGB [...] any questions or concerns Bree Molina APRN SECURITY VEHICLE PATROL OFFICER A-G SUPERVISOR PROP MAKING [facility] [phone] Pt seen and examined independently by me. I reviewed with DENIA-SECURITY VEHICLE PATROL OFFICER the medical history and the findings on physical examination. I discussed the patient s diagnosis and concur with the treatment plan as documented in his note. Please call [phone] or message me through [employer] with any questions or concerns. Images from the original note were not included. PHYSICAL THERAPY [facility] Name/MRN: Jair Snyder ([id number]) Date: 02/22/2025 Pt declined to work with therapy at this time, stating he wants to wait until after the wound vac is put on. Will reattempt at a later date. Sangeeta Sarabia PT Images from the original note were not included. PHYSICAL THERAPY [facility] Name/MRN: Jair Snyder ([id number]) Date: 02/21/2025 Pt declined to work with [...] Time 17 min documented in this encounter [facility] 03-05-2025 Miscellaneous Notes Formattin g of this note might be different from the original. Auth is now pending with [facility] for [facility] [place]. Auth ID: [id number] . The insurance needs PT and OT notes- as PT note yesterday incomplete , they are both requested . Confirmed pickup time of 4:00pm on 03/05/25 by transport Gogo at phone number [phone]. Location of facility drop off is [facility]. Facility notified via [employer], TCC notified on secure chat. Discharge med list transmitted to [facility] via [facility] per TCC request. Tcc requested transport to be set up at 4 PM to permit auth to be ongoing- facility can accept- just requested it be started today - collision worker notified, and discharge orders faxed, will confirm in secure chat the time and notify the tx team , orders in [facility] , rosendo done, return to [facility] . TCC requested OT notes this am - for ongoing auth - PT INR is now good 1.8 , notified facility want to send today , auth was only good thru 03/02 notified WELLHEAD PUMPER to confirm about auth requirements again today .. Transport in will call, wound VAC to go with patient, discharge orders in [facility] , LIVES at facility LT - the facility wants to skill- tcc is working with them to have him discharge later today - transport in will call . Environmental Intern notified to send orders and med rec to [facility] Problem: Knowledge Deficit Goal: Patient/family/caregiver demonstrates understanding [...] Note DC plan is return to ECF/SNF- [facility], no auth needed to return however facility [...] Progress Note 03/03/25 1025 Rapid Rounds Attendance Director Digital Catalogue Planned Discharge Disposition [facility] no AUTH needed) Today we still await Other (INR >or = 1.8 per [facility]) Clinical stability Attending completion of discharge workflow Additional Comments: We have a skilled AUTH that expires midnight tonight, however facility will still accept without AUTH per previous CM notes This Director Digital Catalogue was tasked to follow this patient through the weekend. Chart and [facility] were reviewed. INR this am is 1.6, subtherapeutic. Facility updated. Transportation is in will call. solar manager will continue to follow for transitional [...] med list and updated notes transmitted to [facility] via [facility] per TCC request. Per [...] 1.8 - and need labs post at [facility] to follow . Environmental Intern tasked to send wound vac and clinicals- requested PT/OT notes for ongoing auth . Rosendo done- transport in will call to return to [facility] where he lives facility did [...] Roundtrip in will call per TCC. Tasked WELLHEAD PUMPER to set up transport in will call, [...] therapy to start auth for [facility]. Continues on IV antibiotics. On a heparin gtt. SMS following to change to Coumadin. INR 13 today. Plan is to return to [facility]. . Length of Stay (Days): 7 GMLOS: [...] therapy notes. Want to skill him at [facility]. Started on IV antibiotics for aspiration pneumonia. Continues on a heparin gtt. . Updated notes sent to [facility] via [facility] per [facility] request. Await review and response regarding [...] pressure injuries/wounds this shift so RN SHAQ [facility] would prefer to SKILL patient- LTC. [...] Interventions Goal: Promote nutritional intake Outcome: Progressing [facility] would prefer to SKILL patient- LTC. + bedhold will return - has woundVAC and ivab on hep gtt, not ready for discharge , collision worker tasked to send clinicals facility is updated . Updated notes sent to [facility] per [facility] request. Await review and response regarding [...] Outcome: Not Progressing Has dialysis at facility, [facility].. Pt came to ER from dialysis due to hemoptysis. Had a trach removed 01/19. He is a bed hold at [facility]. They would like to skill him if able. Unable to tell me where he went to dialysis this am, asking facility. Referral placed to [facility] Return - [facility] via [facility] per TCC request. Await [...] of blood components. documented in this encounter [facility] 03-05-2025 Note [facility] 03-05-2025 Hospital course Narrative Images from the original note were not included. Hospitalist Discharge Summary - [facility] - [facility] ([facility]) Jun Snyder : 1965 Admit date: 02/20/2025 Discharge date: 03/05/2025 Admitting Physician: Bettye Pierre MD Primary Care Physician: Leilani Han Recommended Follow-up: [facility] [address] [facility] [address] [place] [facility] [address] [place] [facility] [address] Call Call and schedule appointment in [...] "CHOL" No results found for: "PHART", "PO2ART", "QSY1CIF" Recent Labs 03/04/25 0156 03/04/25 0946 03/05/25 [...] mg/3 mL nebulizer solution Commonly known as: JavierNeb Lidocaine 4 % patch Apply 1 patch [...] Your Medications These medications were sent to [address] - [address] [address] metoprolol tartrate 25 MG tablet pantoprazole 40 MG EC tablet QUEtiapine 25 MG tablet sevelamer carbonate 800 MG tablet You can get these medications from any pharmacy Bring a paper prescription for each of these medications oxyCODONE 5 MG immediate release tablet Signed: Anthony Hurtado DO 03/05/2025, 9:30 AM documented in this encounter [facility] 03-03-2025 Nurse Note Patient Name: Jun Snyder Patient : 1965 Acct: [id number] Date of Admission: 02/20/2025 Room[facility]Bed: [facility] A Code Status: Full Code Allergies: [...] na Date of Last Dressing Change: na na, [address]?: na Red Alcohol [...] Results Component Value Date/Time WBC 8.9 03/03/2025 021 HGB 8.3 (L) 03/03/2025 021 HGB 9.4 11/11/2024 0230 HCT 27.8 (L) 03/03/2025 021 PLT 397 03/03/2025211 NA 140 03/03/2025211 K 6.2 (HH) 03/03/2025 021 CL 101 03/03/2025211 CO2 28 03/03/2025211 BUN 26 (H) 03/03/2025211 CREATININE 3.21 (H) 03/03/2025 021 CREATININE 9.99 (H) 10/27/2019 0545 CALCIUM 9.8 03/03/2025 0212 PHOS 2.6 02/23/2025 0032 IV Drips and Rate/Dose Continuous Meds[3] Safety - Before each treatment: Dialysis Machine No.: [id number] RO Machine Number: [id number] Dialyzer Lot No.: [id number] Tubing Lot Number: [id number] All Connections Secure: Yes Venous Parameters Set: Yes Arterial Parameters Set: Yes NS Bag: Yes Saline Line Double Clamped: Yes Dialyzer: Nipro Prime Volume (mL): 200 mL RO Machine Number: [id number] RO Machine Log Sheet Completed: Yes Machine Alarm Self Test: Completed, Passed (03/03/25 0740) Air Foam Detector: Tested, Proper Function, pH Reading Extracorporeal Circuit Tested for Integrity: Yes Machine Conductivity: 13.7 Manual Conductivity: 13.6 Manual Ph: 7 Bleach Test (Neg): Yes Bath Temperature: 36 C (96.8 F) Conductivity Meter Serial #: [id number] Machine Functioning Alarm Free? Yes Dialysis Bath: K+ (Potassium): 2 Ca+ (Calcium): 2.5 Na+ (Sodium): 137 HCO3 (Bicarb): 35 Bicarbonate Concentrate Lot No.: [id number] Acid Concentrate Lot No.: [id number] Chlorine Testing - Before each treatment and [...] pt sleeping, removed 214303/03/25 1230 350 mL/min 98453 ml/hr -70 mmHg 170 mmHg 80 600 [...] Active Problem List Diagnosis Anemia Paroxysmal A-fib ([facility]) ([facility]) HTN (hypertension) ESRD on hemodialysis ([facility]) ([facility]) IgA nephropathy determined by biopsy of kidney Diverticulosis Nonrheumatic aortic valve stenosis Calcification of abdominal aorta ([facility]) Missed vaccination due to patient refusal Tobacco abuse Alcohol use disorder in remission Atrial flutter, unspecified type ([facility]) RSV (acute bronchiolitis due to respiratory syncytial virus) Aortic stenosis Upper GI bleed S/P AVR Acute hypoxic respiratory failure ([facility]) Acute encephalopathy Pneumoperitoneum Gastric ulceration Severe malnutrition ([facility]) ([facility]) Pleural effusion Peritonitis due to fungus ([facility]) History of abdominal surgery Leg DVT (deep venous thromboembolism), acute, left ([facility]) Ischemic ulcer of toe of left foot, 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) Tracheostomy dependence ([facility]) Leukocytosis Decubitus ulcer of sacral region, unstageable ([facility]) Pneumonia of both lungs due to methicillin susceptible Staphylococcus aureus (MSSA) ([facility]) Sacral osteomyelitis ([facility]) ([facility]) Acute respiratory failure with hypoxia ([facility]) [J96.01] Tracheostomy care ([facility]) [Z43.0] Pulmonary embolism ([facility]) FPC (current) use of antibiotics Complication of tracheostomy ([facility]) ([facility]) BRBPR (bright red blood per rectum) Hemoptysis [3] heparin, 5-30 Units/kg/hr, Last Rate: 20 Units/kg/hr (03/03/25 0707) In patient's chart, d/t patient being on his call light excessively and finally telling me he wants something for pain. Please see eMAR for administration Patient Name: Jun Snyder Patient : 1965 Acct: [id number] Date of Admission: 02/20/2025 Room/Bed: [facility] A Code Status: Full Code Allergies: [...] HGB 9.4 11/11/2024 0230 HCT 26.9 (L) 03/01/20252 PLT 306 03/01/2025 0003 NA 138 03/01/2025 0003 K 5.8 (H) 03/01/20252 CL 102 03/01/20252 CO2 23 03/01/20252 BUN 28 (H) 03/01/20252 CREATININE 3.73 (H) 03/01/20252 CREATININE 9.99 (H) 10/27/201945 CALCIUM 9.6 03/01/20252 PHOS 2.6 02/23/2025 0032 IV Drips and Rate/Dose Continuous Meds[3] Safety - Before each treatment: Dialysis Machine No.: [id number] Machine Number: [id number] Dialyzer Lot No.: [id number] Tubing Lot Number: [id number] All Connections Secure: Yes Venous Parameters Set: Yes Arterial Parameters Set: Yes NS Bag: Yes Saline Line Double Clamped: Yes Dialyzer: Nipro Prime Volume (mL): 200 mL RO Machine Number: [id number] RO Machine Log Sheet Completed: Yes Machine Alarm Self Test: Completed, Passed (03/01/25 0749) Air Foam Detector: Tested, Proper Function, pH Reading Extracorporeal Circuit Tested for Integrity: Yes Machine Conductivity: 13.6 Manual Conductivity: 13.5 Manual Ph: 7.2 Bleach Test (Neg): Yes Bath Temperature: 36 C (96.8 F) Conductivity Meter Serial #: [id number] Machine Functioning Alarm Free? Yes Dialysis Bath: K+ (Potassium): 3 Ca+ (Calcium): 2.5 Na+ (Sodium): 137 HCO3 (Bicarb): 35 Bicarbonate Concentrate Lot No.: [id number] Acid Concentrate Lot No.: [id number] Chlorine Testing - Before each treatment and [...] Acute respiratory failure with hypoxia ([facility]) [J96.01] Tracheostomy care ([facility]) [Z43.0] Pulmonary embolism (HCC) 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 (current) use of antibiotics Complication of tracheostomy (CMS/HCC) (HCC) BRBPR (bright red blood per rectum) Hemoptysis [3] heparin, 5-30 Units/kg/hr, Last Rate: 18 Units/kg/hr (03/01/25 0720) This RN walked into pt's room and noticed a running heat gun that was plugged into the wall. Pt has been stating the room is too cold, and that maintenance would not fix the problem. This RN notified nurse manger of the heat gun, the patients growing concerns of the temperature in the room, and the patients agitation. Nurse primary health organisation manager notified maintenance of the problem, and [...] nurses aides cannot leave the floor to hop picker his packages, and pt was agreeable to this as well. Patient Name: Jun Snyder Patient : 1965 Acct: [id number] Date of Admission: 02/20/2025 Room[facility]Bed: [facility] A Code Status: Full Code Allergies: [...] Condition/Temp Abdomen Inspection Bowel Sounds (All Quadrants) 06/03/25 0757 -- -- -- -- Diminished Ecchymosis -- -- -- 02/27/25 0840 Alert (0) 3 Regular None (Room air) Clear [place] Warm;Dry;No swelling Soft Active 02/27/25 1202 Alert (0) 3 Regular None (Room air) Clear [place] Warm Soft -- 02/27/25 1240 -- -- -- -- Diminished Ecchymosis -- -- -- Labs Lab Results Component Value Date/Time WBC 7.9 02/27/2025 0010 HGB 8.6 (L) 02/27/2025 001 HGB 9.4 11/11/2024 0230 HCT 28.8 (L) 02/27/2025 0010 PLT 302 02/27/2025 0010 NA 135 (L) 02/23/2025 0032 K 4.1 02/23/2025 0032 CL 99 02/23/2025 0032 CO2 25 02/23/2025 0032 BUN 21 02/23/2025 0032 CREATININE 2.78 (H) 02/23/2025 003 CREATININE 9.99 (H) 10/27/2019 0545 CALCIUM 9.2 02/23/2025 0032 PHOS 2.6 02/23/2025 003 IV Drips and Rate/Dose Continuous Meds[3] Safety - Before each treatment: Dialysis Machine No.: [id number] Machine Number: [id number] Dialyzer Lot No.: [id number] Tubing Lot Number: [id number] All Connections Secure: Yes Venous Parameters Set: Yes Arterial Parameters Set: Yes NS Bag: Yes Saline Line Double Clamped: Yes Dialyzer: Nipro Prime Volume (mL): 200 mL RO Machine Number: [id number] RO Machine Log Sheet Completed: Yes Machine Alarm Self Test: Completed, Passed (02/27/25 0745) Air Foam Detector: Tested, Proper Function, pH Reading Extracorporeal Circuit Tested for Integrity: Yes Machine Conductivity: 13.7 Manual Conductivity: 143.6 Manual Ph: 7 Bleach Test (Neg): Yes Bath Temperature: 36 C (96.8 F) Conductivity Meter Serial #: [id number] Machine Functioning Alarm Free? Yes Dialysis Bath: K+ (Potassium): 3 Ca+ (Calcium): 2.5 Na+ (Sodium): 137 HCO3 (Bicarb): 35 Bicarbonate Concentrate Lot No.: [id number] Acid Concentrate Lot No.: [id number] Chlorine Testing - Before each treatment and [...] hypoxia (HCC) [J96.01] Tracheostomy care ([facility]) [Z43.0] Pulmonary embolism (HCC) FPC (current) use of antibiotics Complication of tracheostomy [...] and will see if the day shift executive legal secretary can put a request in. 232- Notified Dr. Hathaway of patient complaint of SOB and worsening chest pain that he described as dull and tight. Vitals WDL. STAT EKG ordered, patient given Nitrostat, and troponin sent down. 2330- Notified TALLOW PUMPER to assess the patient. Patient Name: Jun Snyder Patient : 1965 Acct: [id number] Date of Admission: 02/20/2025 Room[facility]Bed: [facility] A Code Status: Full Code Allergies: [...] 1058. Report Received from Primary RN at 0756. Primary RN (First Initial, Last Name, Title): [...] na Date of Last Dressing Change: na na, [address]?: na Red Alcohol [...] 316 02/23/2025 003 NA 135 (L) 02/23/2025 0032 K 4.1 02/23/2025 003 CL 99 02/23/2025 0032 CO2 25 02/23/2025 0032 BUN 21 02/23/2025 0032 CREATININE 2.78 (H) 02/23/202531 CREATININE 9.99 (H) 10/27/2019 0545 CALCIUM 9.2 02/23/20252 PHOS 2.6 02/23/2025 003 IV Drips and Rate/Dose Continuous Meds[3] Safety - Before each treatment: Dialysis Machine No.: [id number] RO Machine Number: [id number] Dialyzer Lot No.: [id number] Tubing Lot Number: [id number] All Connections Secure: Yes Venous Parameters Set: Yes Arterial Parameters Set: Yes NS Bag: Yes Saline Line Double Clamped: Yes Dialyzer: Nipro Prime Volume (mL): 200 mL RO Machine Number: [id number] RO Machine Log Sheet Completed: Yes Machine Alarm Self Test: Completed, Passed (02/24/25 0810) Air Foam Detector: Tested, Proper Function, pH Reading Extracorporeal Circuit Tested for Integrity: Yes Machine Conductivity: 13.7 Manual Conductivity: 13.7 Manual Ph: 7 Bleach Test (Neg): Yes Bath Temperature: 36 C (96.8 F) Conductivity Meter Serial #: [id number] Machine Functioning Alarm Free? Yes Dialysis Bath: K+ (Potassium): 3 Ca+ (Calcium): 2.5 Na+ (Sodium): 137 HCO3 (Bicarb): 35 Bicarbonate Concentrate Lot No.: [id number] Acid Concentrate Lot No.: [id number] Chlorine Testing - Before each treatment and [...] feed based on dietary recommendations) Provider Name: [facility] Provider Role: Hospitalist Method of [...] Active Problem List Diagnosis Anemia Paroxysmal A-fib ([facility]) ([facility]) HTN (hypertension) ESRD on hemodialysis ([facility]) ([facility]) IgA nephropathy determined by biopsy of kidney Diverticulosis Nonrheumatic aortic valve stenosis Calcification of abdominal aorta ([facility]) Missed vaccination due to patient refusal Tobacco abuse Alcohol use disorder in remission Atrial flutter, unspecified type ([facility]) RSV (acute bronchiolitis due to respiratory syncytial virus) Aortic stenosis Upper GI bleed S/P AVR Acute hypoxic respiratory failure ([facility]) Acute encephalopathy Pneumoperitoneum Gastric ulceration Severe malnutrition ([facility]) ([facility]) Pleural effusion Peritonitis due to fungus ([facility]) History of abdominal surgery Leg DVT (deep venous thromboembolism), acute, left ([facility]) Ischemic ulcer of toe of left foot, limited to breakdown of skin ([facility]) Tracheostomy dependence ([facility]) Leukocytosis Decubitus ulcer of sacral region, unstageable ([facility]) Pneumonia of both lungs due to methicillin susceptible Staphylococcus aureus (MSSA) ([facility]) Sacral osteomyelitis ([facility]) ([facility]) Acute respiratory failure with hypoxia ([facility]) [J96.01] Tracheostomy care ([facility]) [Z43.0] Pulmonary embolism ([facility]) 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 (current) use of antibiotics Complication of tracheostomy ([facility]) ([facility]) BRBPR (bright red blood per rectum) Hemoptysis [3] heparin, 5-30 Units/kg/hr, Last Rate: 18 Units/kg/hr (02/24/25 1601) Patient continuing to order packages when he was instructed not to, multiple times, while at the hospital. Dispatch called [employer] and said a package came to the mailroom personnel but they will not have access to retreive until Wednesday morning. It is locked over the weekend. Wound Care consulted for Pressure Injury Prevention. Pt's Kee score= 13 on 02/23 Pt's pressure points assessed. Pt's Right Heel, Elbows, Occiput and ears all intact. Pt currently followed by Wound SUPERVISOR PROP MAKING group for wounds to left toes, left plantar heel, right wrist, and sacrum with wound vac. For left toes, left heel, right wrist, and sacral wound assessments and treatment plan, please see Wound/Ostomy SUPERVISOR PROP MAKING progress notes. [place] sheet noted at bedside and not on [...] Name: Jun Snyder Patient : 1965 Acct: [id number] Date of Admission: 02/20/2025 Room/Bed: [facility] A Code Status: Full Code Allergies: [...] PLT 282 02/22/2025 010 NA 132 (L) 02/22/202599 K 3.4 (L) 02/22/202599 CL 94 (L) 02/22/2025 010 CO2 25 02/22/2025 010 BUN 36 (H) 02/22/202599 CREATININE 3.99 (H) 02/22/202599 CREATININE 9.99 (H) 10/27/2019 0545 CALCIUM 9.2 02/22/202599 PHOS 3.2 02/22/202599 IV Drips and Rate/Dose Continuous Meds[3] Safety - Before each treatment: Dialysis Machine No.: [id number] Machine Number: [id number] Dialyzer Lot No.: [id number] Tubing Lot Number: [id number] All Connections Secure: Yes Venous Parameters Set: Yes Arterial Parameters Set: Yes NS Bag: Yes Saline Line Double Clamped: Yes Dialyzer: Nipro Prime Volume (mL): 200 mL RO Machine Number: [id number] RO Machine Log Sheet Completed: Yes Machine Alarm Self Test: Completed, Passed (test passed at 0938) (02/22/25 0940) Air Foam Detector: Tested, Proper Function, pH Reading Extracorporeal Circuit Tested for Integrity: Yes Machine Conductivity: 13.7 Manual Conductivity: 13.8 Manual Ph: 7 Bleach Test (Neg): Yes (water check negative at 1215) Bath Temperature: 36 C (96.8 F) Conductivity Meter Serial #: [id number] Machine Functioning Alarm Free? Yes Dialysis Bath: K+ (Potassium): 3 Ca+ (Calcium): 2 Na+ (Sodium): 137 HCO3 (Bicarb): 35 Bicarbonate Concentrate Lot No.: [id number] Acid Concentrate Lot No.: [id number] Chlorine Testing - Before each treatment and [...] 120 mmHg 90 600 Yes Brigitte Molina SUPERVISOR PROP MAKING at bedside, no voiced complaints. fluid removal [...] feed based on dietary recommendations) Provider Name: [facility] Provider Role: Hospitalist Method of [...] (CMS/HCC) (HCC) HTN (hypertension) ESRD on hemodialysis ([facility]) ([facility]) IgA nephropathy determined by biopsy of kidney Diverticulosis Nonrheumatic aortic valve stenosis Calcification of abdominal aorta ([facility]) Missed vaccination due to patient refusal Tobacco abuse Alcohol use disorder in remission Atrial flutter, unspecified type (HCC) RSV (acute bronchiolitis due to respiratory syncytial virus) Aortic stenosis Upper GI bleed S/P AVR Acute hypoxic respiratory failure ([facility]) Acute encephalopathy Pneumoperitoneum Gastric ulceration Severe malnutrition [...] Acute respiratory failure with hypoxia ([facility]) [J96.01] Tracheostomy care ([facility]) [Z43.0] Pulmonary embolism ([facility]) 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 (current) use of antibiotics Complication of tracheostomy (CMS/HCC) ([facility]) BRBPR (bright red blood per rectum) Hemoptysis [...] request. This RN spoke with RN at [facility] to verify medications that pt is taking. Pt arrived to hospital with wound vac on coccyx. Pt declined pictures to be taken of wound for charting. Pt states wound is being cared [facility]. Pt also mentioned that his Left [...] " Pt arrived on floor via [facility] documented in this encounter [facility] 02-26-2025 Telephone encount er Note Called spoke with a nurse at the home he lives at. She declined to schedule any appointments at this time because they don't know when patient will be discharged. She said to call back once he is out the hospital. There is no other number to contact patient directly [facility] 02-26-2025 Miscellaneous Notes Formattin g of [...] this? Thank you documented in this encounter [facility] 02-23-2025 Telephone encount er Note Called LM to call back and schedule CT and hospital follow up with any ARMIN [facility] 02-23-2025 Miscellaneous Notes Formattin g of this note might be different from the original. Called LM to call back and schedule CT and hospital follow up with any ARMIN Antonio, can we please schedule a 6-week CT scan for this patient and a follow-up appointment after this? Thank you documented in this encounter [facility] 02-23-2025 Consult note Formatting of th [...] was bright red and it stopped just DOOR TECHNICIAN when in transport. Reason for Consult: PEG [...] constipation). 02/21/25 Historical Provider, epoetin rowan-epbx (Retacrit) [id number] UNIT/ML injection Inject 0.79 mL (7,900 Units) [...] 02/20/2025 Patient Name: JUN SNYDER : 1965 [facility]#: [id number] Exam Date/Time: 02/20/2025 19:01 Procedure: CT CHEST [...] Jaskaran Bey MD General Surgery PGY-2 Pager [phone] [1] Past Medical History: Diagnosis Date Acute renal failure (ARF) ([facility]) 10/19/2019 Anemia 12/30/2021 Calcification of abdominal aorta ([facility]) 10/08/202309/[address] abd Diverticulosis 10/08/2023 ESRD on hemodialysis ([facility]) ([facility]) 10/26/2019 [place] ([facility]) HTN (hypertension) 12/01/2022 Hypertension IgA nephropathy IgA nephropathy determined by biopsy of kidney 10/26/2019 Missed vaccination due to patient refusal 10/08/2023 Has a number of non-scientific based beliefs which interfere with his understanding and acceptance of the medical benefit of vaccination. Nonrheumatic aortic valve stenosis 10/08/2023 Paroxysmal A-fib ([facility]) ([facility]) 08/18/2023 Tobacco abuse 10/08/2023 [2] Past Surgical History: Procedure Laterality Date APPENDECTOMY CARDIAC CATHETERIZATION N/A 10/09/2024 Performed by Bob Watson MD at [facility] Cardiac Cath/EP Lab CARDIAC CATHETERIZATION Bilateral 11/01/2024 Performed by Bob Watson MD at [facility] Cardiac Cath/EP Lab CARDIAC CATHETERIZATION N/A 11/01/2024 Performed by Bob Watson MD at [facility] Cardiac Cath/EP Lab COLONOSCOPY N/A 01/24/2025 Performed by Chadd Davis MD at [facility] ENDOSCOPY FISTULAGRAM (HISTORICAL) Left 09/15/2021 LEFT UPPER [...] 0 min Stress: Stress Concern Present (02/21/2025) [employer] [place] [employer] - Occupational Stress Questionnaire Feeling of Stress : To some extent Social Connections: Unknown (02/21/2025) Social Connection and Isolation Panel [NHANES] Frequency of Communication with Friends and Family: More than three times a week Frequency of Social Gatherings with Friends and Family: Patient declined Attends Tenriism Services: Patient declined Active Member of Clubs [...] minutes (including chart/data review/analysis, care coordination, and [id number] encounter), and was spent discussing/counseling the patient/family [...] & Acute Care Surgery Department of Surgery [facility] [facility] [place] Pager: [phone] ~~~~~~~~~~~~~~~~~~~~~~~~~~~~~~~~ ~~~~~~~~~~~~~~~~~~~~~~~~~~~~~ This note may have been dictated using [employer] Medical Practice Edition 2.6 and/or textmetix Voice Recognition Feature. The document was proofread; however, unrecognized voice recognition home care administrator errors may be present. [1] Patient Active [...] Acute respiratory failure with hypoxia ([facility]) [J96.01] Tracheostomy care ([facility]) [Z43.0] Pulmonary embolism (HCC) FPC (current) use of antibiotics Complication of tracheostomy (CMS/HCC) (HCC) BRBPR (bright red blood per rectum) Hemoptysis Associated Order(s): IP CONSULT TO INFECTIOUS DISEASES Images from the original note were not included. [facility] - Infectious Diseases Attending [...] 0 min Stress: Stress Concern Present (02/21/2025) [place] [facility] - Occupational Stress Questionnaire Feeling of Stress : To some extent Social Connections: Unknown (02/21/2025) Social Connection and Isolation Panel [NHANES] Frequency of Communication with Friends and Family: More than three times a week Frequency of Social Gatherings with Friends and Family: Patient declined Attends Tenriism Services: Patient declined Active Member of Clubs [...] Date Acute renal failure (ARF) ([facility]) 10/19/2019 Anemia 12/30/2021 Calcification of abdominal aorta ([facility]) 10/08/202309/[address] abd Diverticulosis 10/08/2023 ESRD on hemodialysis ([facility]) ([facility]) 10/26/2019 [place]) HTN (hypertension) 12/01/2022 Hypertension IgA nephropathy IgA [...] 10/09/2024 Performed by Bob Watson MD at [facility] Cardiac Cath/EP Lab CARDIAC CATHETERIZATION Bilateral 11/01/2024 Performed by Bob Watson MD at [facility] Cardiac Cath/EP Lab CARDIAC CATHETERIZATION N/A 11/01/2024 Performed by Bob Watson MD at [facility] Cardiac Cath/EP Lab COLONOSCOPY N/A 01/24/2025 Performed by Chadd Davis MD at [facility] ENDOSCOPY FISTULAGRAM (HISTORICAL) Left 09/15/2021 LEFT UPPER ARM HX AV FISTULA CREATION IR EMBOLIZATION 10/14/2024 IR EMBOLIZATION 10/14/2024 [facility] SPECIAL PROCEDURES IR FISTULAGRAM 08/07/2022 IR FISTULAGRAM [...] Note Consult Date: 02/22/25 Patient Name: Jun JOELN: [id number] Allergies: Lisinopril Age: 59 y.o. Sex: male [...] 9:31 AM Jolie Uribe RPh (available on ampriceu) Associated Order(s): INPATIENT CONSULT TO WOUND CARE PROVIDERS Images from the original note were not included. [facility] Wound Care/NPWT Progress Note Jun Snyder [...] for pain with PO pain medication, per junior staff accountant, prior to wound VAC dressing change. Wet [...] apply Betadine and allow to dry, leave ADMITTING CLERK daily and PRN Right wrist Abrasion: -cleanse with antibacterial soap/water, leave ADMITTING CLERK daily Sacral Stage 4 pressure injury (POA): [...] to follow Recommend to follow up at [facility] Outpatient wound care center after hospital [...] Date Acute renal failure (ARF) ([facility]) 10/19/2019 Anemia 12/30/2021 Calcification of abdominal aorta ([facility]) 10/08/202309/[address] abd Diverticulosis 10/08/2023 ESRD on hemodialysis ([facility]) ([facility]) 10/26/2019 Hemodialysis patient ([facility]) ([facility]) HTN (hypertension) 12/01/2022 Hypertension IgA nephropathy IgA [...] 10/09/2024 Performed by Bob Watson MD at [facility] Cardiac Cath/EP Lab CARDIAC CATHETERIZATION Bilateral 11/01/2024 Performed by Bob Watson MD at [facility] Cardiac Cath/EP Lab CARDIAC CATHETERIZATION N/A 11/01/2024 Performed by Bob Watson MD at [facility] Cardiac Cath/EP Lab COLONOSCOPY N/A 01/24/2025 Performed by Chadd Davis MD at [facility] ENDOSCOPY FISTULAGRAM (HISTORICAL) Left 09/15/2021 LEFT UPPER ARM HX AV FISTULA CREATION IR EMBOLIZATION 10/14/2024 IR EMBOLIZATION 10/14/2024 [facility] SPECIAL PROCEDURES IR FISTULAGRAM 08/07/2022 IR FISTULAGRAM [...] needed (PRN constipation). 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 Strength: Not Performed Nutrition Assessment: 59yo male admitted from [facility] 02/20 due to coughing up [...] Total Energy Requirements (kcals/day): 30-35 kcal/kg = 5956-6195 kcal Weight Used for Protein Requirements: Current [...] lb) (08/28/24) % Weight Change (Calculated): -34.6 [place] Body Weight (lbs) (Calculated): 166 lbs [place] Body Weight (Kg) (Calculated): 75 kg % [place] Body Weight (Calculated): 81.1 % BMI (kg/m2) [...] soon to determine Jade Rodriguez RD Contact: Physitrack or *[phone] Associated Order(s): INPATIENT CONSULT TO WOUND CARE PROVIDERS Images from the original note were not included. [facility] Wound Care CONSULT Note Jun Snyder [...] to follow Recommend to follow up at [facility] Outpatient wound care center after hospital [...] Date Acute renal failure (ARF) ([facility]) 10/19/2019 Anemia 12/30/2021 Calcification of abdominal aorta ([facility]) 10/08/202309/[address] abd Diverticulosis 10/08/2023 ESRD on hemodialysis ([facility]) ([facility]) 10/26/2019 [place]) HTN (hypertension) 12/01/2022 Hypertension IgA nephropathy IgA nephropathy determined by biopsy of kidney 10/26/2019 Missed vaccination due to patient refusal 10/08/2023 Has a number of non-scientific based beliefs which interfere with his understanding and acceptance of the medical benefit of vaccination. Nonrheumatic aortic valve stenosis 10/08/2023 Paroxysmal A-fib ([facility]) ([facility]) 08/18/2023 Tobacco abuse 10/08/2023 [2] Past Surgical History: Procedure Laterality Date APPENDECTOMY CARDIAC CATHETERIZATION N/A 10/09/2024 Performed by Bob Watson MD at [facility] Cardiac Cath/EP Lab CARDIAC CATHETERIZATION Bilateral 11/01/2024 Performed by Bob Watson MD at [facility] Cardiac Cath/EP Lab CARDIAC CATHETERIZATION N/A 11/01/2024 Performed by Bob Watson MD at [facility] Cardiac Cath/EP Lab COLONOSCOPY N/A 01/24/2025 Performed by Chadd Davis MD at [facility] ENDOSCOPY FISTULAGRAM (HISTORICAL) Left 09/15/2021 LEFT UPPER ARM HX AV FISTULA CREATION IR EMBOLIZATION 10/14/2024 IR EMBOLIZATION 10/14/2024 [facility] SPECIAL PROCEDURES IR FISTULAGRAM 08/07/2022 IR FISTULAGRAM 08/07/2022 [facility] IR IMAGING TONSILLECTOMY (HISTORICAL) [3] Family [...] needed (PRN constipation). [DISCONTINUED] epoetin rowan-epbx (Retacrit) 63962 UNIT/ML injection Inject 0.79 mL (7,900 Units) under the skin 1 (one) time per week. (Patient not taking: Reported on 02/21/2025) [DISCONTINUED] pantoprazole (ProtoNix) 40 MG injection Infuse 40 mg into a venous catheter 2 times daily. Cosigned by Ahsan Gill DO at 02/26/2025 4:59 PM EDT Associated Order(s): IP CONSULT TO PULMONOLOGY Images from the original note were not included. [facility], Pulmonary Medicine [phone] PULMONARY CONSULTATION NOTE. Patient - Jun Snyder, [...] Dose Status acetaminophen (Tylenol) 325 MG tablet [id number] No Take 650 mg by mouth every 6 hours as needed for mild pain (1-3) or fever. Patient not taking: Reported on 02/21/2025 Historical Provider, Unknown Active Ampicillin-Sulbactam Sodium (UNASYN IV) [id number] Infuse 3 g into a venous catheter Every 24 hours. Historical Provider, 02/14/25 2353 B complex-vitamin C-folic acid (Nephro-Nato Rx) 1 MG tablet [id number] Take 1 tablet by mouth daily. Historical ProviderMD Active bisacodyl (Dulcolax) 5 MG EC tablet [id number] Take 5 mg by mouth Daily as needed for constipation. Do not crush, chew, or split. Historical ProviderMD Active bisacodyl (Dulcolax) 5 mg split suppository [id number] Insert 10 mg into the rectum Daily as needed (PRN constipation). Historical Provider, Active epoetin rowan-epbx (Retacrit) 83998 UNIT/ML injection [id number] No Inject 0.79 mL (7,900 Units) under the skin 1 (one) time per week. Patient not taking: Reported on 02/21/2025 DENIA Girard CNP Unknown Active ipratropium-albuterol (Duo-Neb) 0.5-2.5 mg/3 mL nebulizer solution [id number] Yes Take 3 mL by nebulization every 8 hours. DENIA Girard CNP Past Week Active Lidocaine 4 % patch [id number] Apply 1 patch topically daily. DENIA Girard CNP Active magnesium hydroxide (Milk of Magnesia) 800 MG/5ML suspension [id number] Take 30 mL by mouth Daily as needed for constipation (if no bm in 3 days). Historical ProviderMD Active melatonin 5 MG tablet [id number] 1 tablet (5 mg) by Per G Tube route Nightly as needed (insomnia). DENIA Girard CNP Active metoprolol tartrate (Lopressor) 25 MG tablet [id number] 1 tablet (25 mg) by Per G Tube route 2 times daily. DENIA Girard CNP Active midodrine (Proamatine) 5 MG tablet [id number] 3 tablets (15 mg) by Per G Tube route every 6 hours. DENIA Girard CNP 02/14/25 235 naloxone in sodium chloride (PF) injection injection [id number] Inject 0.04 mg into the shoulder, thigh, or buttocks as needed for opioid reversal or respiratory depression. Historical Provider, Active oxyCODONE (Roxicodone) 5 MG immediate release tablet [id number] Take 1 tablet (5 mg) by mouth every 6 hours as needed for moderate pain (4-6) for up to 5 days. Barb Dawkins MD 02/14/25 235 pantoprazole (ProtoNix) 40 MG injection [id number] Infuse 40 mg into a venous catheter 2 times daily. DENIA Girard CNP Active QUEtiapine (SEROquel) 25 MG tablet [id number] 1 tablet (25 mg) by Per G Tube route Nightly. DENIA Girard CNP 02/14/252358 sevelamer (Renagel) 800 MG tablet [id number] Take 800 mg by mouth 3 times daily (with meals). Swallow tablet whole; do not crush, break, or chew. Give with meals for CKD/dialysis Historical Provider, Active warfarin (Coumadin) 1 MG tablet [id number] Yes Take as directed per After Visit [...] 10/09/2024 Performed by Bob Watson MD at [facility] Cardiac Cath/EP Lab CARDIAC CATHETERIZATION Bilateral 11/01/2024 Performed by Bob Watson MD at [facility] Cardiac Cath/EP Lab CARDIAC CATHETERIZATION N/A 11/01/2024 Performed by Bob Watson MD at [facility] Cardiac Cath/EP Lab COLONOSCOPY N/A 01/24/2025 Performed by Chadd Davis MD at [facility] ENDOSCOPY FISTULAGRAM (HISTORICAL) Left 09/15/2021 LEFT UPPER ARM HX AV FISTULA CREATION IR EMBOLIZATION 10/14/2024 IR EMBOLIZATION 10/14/2024 [facility] SPECIAL PROCEDURES IR FISTULAGRAM 08/07/2022 IR FISTULAGRAM [...] PM EDT I have personally performed a [id number] diagnostic evaluation on this patient on date of service 02/21/2025. History, labs, imaging studies, and electronic medical record have been reviewed by me. This note documented by the [x]plumbing warehouse helper []ARMIN reflects my history, exam, and medical [...] RA Associated Order(s): IP CONSULT TO NEPHROLOGY [facility] [address] [place], [place] [id number] Consult Note Patient's Name: Jun Snyder 10:29 [...] any questions or concerns Bree Molina APRN SECURITY VEHICLE PATROL OFFICER A-G SUPERVISOR PROP MAKING [facility] [phone] Pt seen and examined independently by me. I reviewed with STUDENT SERVICES COUNSELOR-SECURITY VEHICLE PATROL OFFICER the medical history and the findings on physical examination. I discussed the patient s diagnosis and concur with the treatment plan as documented in his note. Please call [phone] or message me through [employer] with any questions or concerns. [1] Past Medical History: Diagnosis Date Acute renal failure (ARF) ([facility]) 10/19/2019 Anemia 12/30/2021 Calcification of abdominal aorta ([facility]) 10/08/202309/[address] abd Diverticulosis 10/08/2023 ESRD on hemodialysis ([facility]) ([facility]) 10/26/2019 Hemodialysis patient ([facility]) ([facility]) HTN (hypertension) 12/01/2022 Hypertension IgA nephropathy IgA nephropathy determined by biopsy of kidney 10/26/2019 Missed vaccination due to patient refusal 10/08/2023 Has a number of non-scientific based beliefs which interfere with his understanding and acceptance of the medical benefit of vaccination. Nonrheumatic aortic valve stenosis 10/08/2023 Paroxysmal A-fib ([facility]) ([facility]) 08/18/2023 Tobacco abuse 10/08/2023 [2] Past Surgical History: Procedure Laterality Date APPENDECTOMY CARDIAC CATHETERIZATION N/A 10/09/2024 Performed by Bob Waston MD at [facility] Cardiac Cath/EP Lab CARDIAC CATHETERIZATION Bilateral 11/01/2024 Performed by Bob Watson MD at [facility] Cardiac Cath/EP Lab CARDIAC CATHETERIZATION N/A 11/01/2024 Performed by Bob Watson MD at [facility] Cardiac Cath/EP Lab COLONOSCOPY N/A 01/24/2025 Performed by Chadd Davis MD at [facility] ENDOSCOPY FISTULAGRAM (HISTORICAL) Left 09/15/2021 LEFT UPPER ARM HX AV FISTULA CREATION IR EMBOLIZATION 10/14/2024 IR EMBOLIZATION 10/14/2024 [facility] SPECIAL PROCEDURES IR FISTULAGRAM 08/07/2022 IR FISTULAGRAM 08/07/2022 [facility] IR IMAGING TONSILLECTOMY (HISTORICAL) [3] Family History Problem Relation Name Age of Onset No Known Problems Mother No Known Problems Father documented in this encounter [facility] 02-23-2025 Telephone encount er Note Antonio, can we please schedule a 6-week CT scan for this patient and a follow-up appointment after this? Thank you [facility] 02-22-2025 Hospital Discharg e steven Hurtado DO [...] Extended Emergency Contact Information Primary Emergency Contact: Lillian,Omar Mobile Relation: Child Secondary Emergency Contact: Toma Mcneil Mobile Relation: Partner Past Surgical History: Past Surgical History: Procedure Laterality Date APPENDECTOMY CARDIAC CATHETERIZATION N/A 10/09/2024 Performed by Bob Watson MD at [facility] Cardiac Cath/EP Lab CARDIAC CATHETERIZATION Bilateral 11/01/2024 Performed by Bob Watson MD at [facility] Cardiac Cath/EP Lab CARDIAC CATHETERIZATION N/A 11/01/2024 Performed by Bob Watson MD at [facility] Cardiac Cath/EP Lab COLONOSCOPY N/A 01/24/2025 Performed by Chadd Davis MD at [facility] ENDOSCOPY FISTULAGRAM (HISTORICAL) Left 09/15/2021 LEFT UPPER ARM HX AV FISTULA CREATION IR EMBOLIZATION 10/14/2024 IR EMBOLIZATION 10/14/2024 [facility] SPECIAL PROCEDURES IR FISTULAGRAM 08/07/2022 IR FISTULAGRAM [...] Acute respiratory failure with hypoxia ([facility]) [J96.01] Tracheostomy care ([facility]) [Z43.0] Pulmonary embolism (HCC) FPC (current) use of antibiotics Complication of tracheostomy [...] Minimal assistance Toileting Minimal assistance Feeding Independent Wound Care Coordinator Minimal assistance Med Delivery yes Wound Care [...] Date: 02/20/25 Discharging to Facility/ Agency Name: [facility] Address: [address] [place] [address] Dialysis Facility (if applicable) Name: Address: Dialysis Schedule: Phone: Fax: Director Digital Catalogue/Wire Drawing Die Maker signature: ICIAN SECTION Name: Jun Snyder Prognosis: [...] to a nursing facility directly from an [facility] or a unit of a hospital that is not operated by or licensed by [facility] under section 5119.14 or 5160-3-15.1 5 The individual requires the level of services provided by a nursing facility for the condition for which he or she was treated in the hospital and, Physician Certification: I certify the above information and transfer of Jun Snyder is necessary for the continuing treatment of the diagnosis listed and that he requires [facility] for less than 30 days. Update [...] 1.5mg 6/1 - 1.3 - 1 mg 5/31 - 1.3 - 1 mg documented in this encounter [facility] 02-21-2025 Telephone encount er Note Name of caller: Padmini Contact phone number: [phone] Relationship to Patient: [facility] Provider: Mariano Practice: Infectious Disease Chief Complaint/Reason for Call: [facility] need a routine consult for this patient for Hemoptysis Cavitary lung lesion. Please advise Padmini Best time of day caller can be reached: any Patient advised that office/PCP has 24-48 business hours to return their call: Yes [facility] 02-21-2025 Miscellaneous Notes Formattin g of this note might be different from the original. Name of caller: Padmini Contact phone number: [phone] Relationship to Patient: [facility] Provider: Mariano Practice: Infectious Disease Chief Complaint/Reason for Call: [facility] need a routine consult for this patient for Hemoptysis Cavitary lung lesion. Please advise Padmini Best time of day caller can be reached: any Patient advised that office/PCP has 24-48 business hours to return their call: Yes documented in this encounter [facility] 02-21-2025 Note Referral placed to [facility] via [facility] per [facility] request. Await review and response regarding ability to accept. [facility] notified. Electronically signed by NELSON Rodrigues [facility] 02-20-2025 History and physical note Attending [...] warfarin. Patient recently admitted to this facility 4/25 for accidental removal of tracheostomy, patient also [...] Date Acute renal failure (ARF) ([facility]) 10/19/2019 Anemia 12/30/2021 Calcification of abdominal aorta ([facility]) 10/08/202309/[address] abd Diverticulosis 10/08/2023 [place]) 10/26/2019 [place]) HTN (hypertension) 12/01/2022 Hypertension IgA nephropathy IgA nephropathy determined by biopsy of kidney 10/26/2019 Missed vaccination due to patient refusal 10/08/2023 Has a number of non-scientific based beliefs which interfere with his understanding and acceptance of the medical benefit of vaccination. Nonrheumatic aortic valve stenosis 10/08/2023 Paroxysmal A-fib ([facility]) ([facility]) 08/18/2023 Tobacco abuse 10/08/2023 Past Surgical History: [...] Patient Unable To Answer (12/01/2024) Received from [facility] Overall Financial Resource Strain (CARDIA) Difficulty of Paying Living Expenses: Patient unable to answer Food Insecurity: Patient Unable To Answer (12/01/2024) Received from [facility] Hunger Vital Sign Worried About Running Out of Food in the Last Year: Patient unable to answer Ran Out of Food in the Last Year: Patient unable to answer Transportation Needs: No Transportation Needs (01/18/2025) Received from [facility] Transportation Source Has lack of transportation kept you from medical appointments or from getting medications?: No Has lack of transportation kept you from meetings, work, or from getting things needed for daily living?: No Physical Activity: Not on file Stress: No Stress Concern Present (01/18/2025) Received from [facility] [place] [facility] - Occupational Stress Questionnaire Feeling of Stress : Not at all Social Connections: Patient Unable To Answer (12/01/2024) Received from [facility] Social Connection and Isolation Panel [NHANES] Frequency of Communication with Friends and Family: Patient unable to answer Frequency of Social Gatherings with Friends and Family: Patient unable to answer Attends Tenriism Services: Patient unable to answer Active Member of Clubs or Organizations: Patient unable to answer Attends Club or Organization Meetings: Patient unable to answer Marital Status: Patient unable to answer Intimate Partner Violence: Patient Unable To Answer (11/28/2024) Received from [facility] Domestic Abuse Assessment Do you feel safe in your relationships at home?: Unable to assess Physical Abuse: Unable to assess [facility] Domestic Abuse - Type of Abuse: Not on file [facility] Domestic Abuse - Time Frame: Not on file [facility] Domestic Abuse - Signs and Symptoms: Not on file Verbal Abuse: Unable to assess [facility] Domestic Abuse - Reported To: Not on file Housing Stability: Patient Unable To Answer (12/01/2024) Received from [facility] Housing Stability Vital Sign Unable [...] MD Division of Hospital Medicine Inpatient Medical Services/[facility] [1] Past Surgical History: Procedure Laterality Date APPENDECTOMY CARDIAC CATHETERIZATION N/A 10/09/2024 Performed by Bob Watson MD at [facility] Cardiac Cath/EP Lab CARDIAC CATHETERIZATION Bilateral 11/01/2024 Performed by Bob Watson MD at [facility] Cardiac Cath/EP Lab CARDIAC CATHETERIZATION N/A 11/01/2024 Performed by Bob Watson MD at [facility] Cardiac Cath/EP Lab COLONOSCOPY N/A 01/24/2025 Performed by Chadd Davis MD at [facility] ENDOSCOPY FISTULAGRAM (HISTORICAL) Left 09/15/2021 LEFT UPPER ARM HX AV FISTULA CREATION IR EMBOLIZATION 10/14/2024 IR EMBOLIZATION 10/14/2024 [facility] SPECIAL PROCEDURES IR FISTULAGRAM 08/07/2022 IR FISTULAGRAM 08/07/2022 [facility] IR IMAGING TONSILLECTOMY (HISTORICAL) [2] Family History Problem Relation Name Age of Onset No Known Problems Mother No Known Problems Father [3] Allergies Allergen Reactions Lisinopril Swelling and Angioedema documented in this encounter [facility] 02-20-[address] [facility] 02-20-2025 Emergency department Note Called [...] placed. Wound is being cared for by [facility] EMERGENCY DEPARTMENT ENCOUNTER [...] was bright red and it stopped just DOOR TECHNICIAN when in transport. HISTORY OF PRESENT ILLNESS [...] CURRENT MEDICATIONS Previous Medications EPOETIN ROWAN-EPBX (RETACRIT) 09601 UNIT/ML INJECTION Inject 0.79 mL (7,900 Units) [...] 02/20/25 1751 02/20/25 1751 02/20/25 1751 02/20/25 175 36.6 C (97.9 F) 86 18 [...] [facility] (Per Emergency Physician): Interpretation per [...] of hemoptysis, he will be admitted at [facility] under the hospitalist service in case [...] Date Acute renal failure (ARF) ([facility]) 10/19/2019 Anemia 12/30/2021 Calcification of abdominal aorta ([facility]) 10/08/202309/[address] abd Diverticulosis 10/08/2023 ESRD on hemodialysis ([facility]) ([facility]) 10/26/2019 [place]) HTN (hypertension) 12/01/2022 Hypertension IgA nephropathy IgA nephropathy determined by biopsy of kidney 10/26/2019 Missed vaccination due to patient refusal 10/08/2023 Has a number of non-scientific based beliefs which interfere with his understanding and acceptance of the medical benefit of vaccination. Nonrheumatic aortic valve stenosis 10/08/2023 Paroxysmal A-fib ([facility] [facility]) ([facility]) 08/18/2023 Tobacco abuse 10/08/2023 [2] Past Surgical History: Procedure Laterality Date APPENDECTOMY CARDIAC CATHETERIZATION N/A 10/09/2024 Performed by Bob Watson MD at [facility] Cardiac Cath/EP Lab CARDIAC CATHETERIZATION Bilateral 11/01/2024 Performed by Bob Watson MD at [facility] Cardiac Cath/EP Lab CARDIAC CATHETERIZATION N/A 11/01/2024 Performed by Bob Watson MD at [facility] Cardiac Cath/EP Lab COLONOSCOPY N/A 01/24/2025 Performed by Chadd Davis MD at [facility] ENDOSCOPY FISTULAGRAM (HISTORICAL) Left 09/15/2021 LEFT UPPER ARM HX AV FISTULA CREATION IR EMBOLIZATION 10/14/2024 IR EMBOLIZATION 10/14/2024 [facility] SPECIAL PROCEDURES IR FISTULAGRAM 08/07/2022 IR FISTULAGRAM [...] Patient Unable To Answer (12/01/2024) Received from [facility] Overall Financial Resource Strain (CARDIA) Difficulty of Paying Living Expenses: Patient unable to answer Food Insecurity: Patient Unable To Answer (12/01/2024) Received from [facility] Medical Hunger Vital Sign Worried About Running Out of Food in the Last Year: Patient unable to answer Ran Out of Food in the Last Year: Patient unable to answer Transportation Needs: No Transportation Needs (01/18/2025) Received from [facility] Transportation Source Has lack of transportation kept you from medical appointments or from getting medications?: No Has lack of transportation kept you from meetings, work, or from getting things needed for daily living?: No Stress: No Stress Concern Present (01/18/2025) Received from [facility] [place] of Occupational Health - Occupational Stress Questionnaire Feeling of Stress : Not at all Social Connections: Patient Unable To Answer (12/01/2024) Received from [facility] Medical Social Connection and Isolation Panel [NHANES] Frequency of Communication with Friends and Family: Patient unable to answer Frequency of Social Gatherings with Friends and Family: Patient unable to answer Attends Tenriism Services: Patient unable to answer Active Member of Clubs or Organizations: Patient unable to answer Attends Club or Organization Meetings: Patient unable to answer Marital Status: Patient unable to answer Intimate Partner Violence: Patient Unable To Answer (11/28/2024) Received from [facility] Medical Domestic Abuse Assessment Do you feel safe in your relationships at home?: Unable to assess Physical Abuse: Unable to assess Verbal Abuse: Unable to assess Housing Stability: Patient Unable To Answer (12/01/2024) Received from [facility] Housing Stability Vital Sign Unable [...] was bright red and it stopped just DOOR TECHNICIAN when in transport. documented in this encounter [facility] 02-14-2025 History of Presen t illness Narrative Images from the original note were not included. [facility] Infectious Diseases Advanced Practice Provider Outpatient Progress Note HISTORYOF PRESENT ILLNESS 59 yo male with PMHx significant for ESRD on HD via AVF, HTN, PAD who was admitted at [facility] (10/03/24-11/28/24) where he underwent AVR (10/12/24). Post-op [...] Pip-Tazo and Anidulafungin. Patient was discharged to [facility] on 11/28/24 where he was followed by our ID group for recurrent MSSA LRTI. He additionally had a sacral wound that was debrided to bone 01/02/25 (Sacral wound Cx + E faecalis, Clostridium clostridioforme). He was on a course of Amp-Sulbactam planned for 6 weeks through 02/13/25 and discharged to SNF 01/18/25. Patient then presented to [facility] 01/19 after inadvertently self-dislodging tracheostomy. He was transferred to [facility] ICU for airway management and to determine if replacement tracheostomy was needed; decision was made to leave tracheostomy out. He was transferred to [facility] same day. 01/20 GI and critical [...] Patient Unable To Answer (12/01/2024) Received from [facility] Overall Financial Resource Strain (CARDIA) Difficulty of Paying Living Expenses: Patient unable to answer Food Insecurity: Patient Unable To Answer (12/01/2024) Received from [facility] Hunger Vital Sign Worried About Running Out of Food in the Last Year: Patient unable to answer Ran Out of Food in the Last Year: Patient unable to answer Transportation Needs: No Transportation Needs (01/18/2025) Received from [facility] Transportation Source Has lack of transportation kept you from medical appointments or from getting medications?: No Has lack of transportation kept you from meetings, work, or from getting things needed for daily living?: No Physical Activity: Not on file Stress: No Stress Concern Present (01/18/2025) Received from [facility] [place] of Occupational Health - Occupational Stress Questionnaire Feeling of Stress : Not at all Social Connections: Patient Unable To Answer (12/01/2024) Received from [facility] Medical Social Connection and Isolation Panel [NHANES] Frequency of Communication with Friends and Family: Patient unable to answer Frequency of Social Gatherings with Friends and Family: Patient unable to answer Attends Tenriism Services: Patient unable to answer Active Member of Clubs or Organizations: Patient unable to answer Attends Club or Organization Meetings: Patient unable to answer Marital Status: Patient unable to answer Intimate Partner Violence: Patient Unable To Answer (11/28/2024) Received from [facility] Medical Domestic Abuse Assessment Do you feel safe in your relationships at home?: Unable to assess Physical Abuse: Unable to assess [facility] Domestic Abuse - Type of Abuse: Not on file [facility] Domestic Abuse - Time Frame: Not on file [facility] Domestic Abuse - Signs and Symptoms: Not on file Verbal Abuse: Unable to assess [facility] Domestic Abuse - Reported To: Not [...] neg 01/22 Acinetobacter baumannii PCR: neg Previous ([facility]) 01/02- sacral wound cx- E faecalis (Amp-S), skin ila, Clostridium clostrioforme 01/01- blood cx- 2/2 NG 12/30- blood cx- 2/2 NGTD 12/30- sputum cx- MSSA, resp ila 12/25- blood cx- 2/2 negative 12/14- sputum cx- MSSA, resp ila 12/14- MRSA pcr- MSSA 12/11- sputum cx- MSSA, resp ila Previous ([facility]) 11/28- L pleural fluid- negative 11/16- abd [...] for accounting for open encounter. Mikala MORAN, [facility] Infectious Disease [1] Past Medical History: Diagnosis Date Acute renal failure (ARF) ([facility]) 10/19/2019 Anemia 12/30/2021 Calcification of abdominal aorta ([facility]) 10/08/202309/[address] abd Diverticulosis 10/08/2023 ESRD on hemodialysis ([facility]) ([facility]) 10/26/2019 [place] ([facility]) HTN (hypertension) 12/01/2022 Hypertension IgA nephropathy IgA [...] Known Problems Father documented in this encounter [facility] 02-02-2025 History of Presen t illness Narrative Images from the original note were not included. Pt discharged to [facility] on 02/01/25. Updated tracker with hospital doses. Warfarin dosing instructions: 0.5 mg per day. New interacting meds: N/a Next SAILAJA appt: post SNF documented in this encounter [facility] 02-02-2025 History of Presen t illness Narrative Images from the original note were not included. Pt discharged to [facility] on 02/01/25. Updated tracker with hospital doses. Warfarin dosing instructions: 0.5 mg per day. New interacting meds: N/a Next SAILAJA appt: post SNF Patient is still at [facility] ([phone]). I left a message for ELIA Anderson, regarding discharge plans. documented in this encounter [facility] 02-02-2025 History of Presen t illness Narrative Images from the original note were not included. Pt discharged to [facility] on 02/01/25. Updated tracker with hospital doses. Warfarin dosing instructions: 0.5 mg per day. New interacting meds: N/a Next SAILAJA appt: post SNF Patient is still at [facility] ([phone]). I left a message for ELIA Anderson, [...] readmitted on 02/20 and discharged back to [facility] on 03/05. documented in this encounter [facility] 02-01-2025 Nurse Note Transport here to take patient to [facility]. Wound Vac tubing clamped and disconnected from wound vac. Facility will determine if tubing is compatible with their wound vacs. Wound Vac Dressing leaking with foam falling out. Dressing removed and W-D drsg applied. Patient Name: Jun Snyder Patient : 1965 Acct: [id number] Date of Admission: 01/19/2025 [place]: [place] [...] hypoxia (HCC) [J96.01] Tracheostomy care ([facility]) [Z43.0] Pulmonary embolism (HCC) 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 (current) use of antibiotics Complication of tracheostomy [...] 01/31/25 0400 -- -- -- -- Diminished Ecchymosis;[place];Mark Warm;Dry Flat;Gastrostomy tube Active 01/31/25 0801 Alert [...] - Before each treatment: Dialysis Machine No.: [id number] RO Machine Number: [id number] Dialyzer Lot No.: [id number] Tubing Lot Number: [id number] All Connections Secure: Yes Venous Parameters Set: Yes Arterial Parameters Set: Yes NS Bag: Yes Saline Line Double Clamped: Yes Dialyzer: Nipro Prime Volume (mL): 200 mL RO Machine Number: [id number] RO Machine Log Sheet Completed: Yes Machine Alarm Self Test: Completed, Passed (722) (01/31/25742) Air Foam Detector: Tested, Proper Function, pH Reading Extracorporeal Circuit Tested for Integrity: Yes Machine Conductivity: 13.7 Manual Conductivity: 13.7 Manual Ph: 7 Bleach Test (Neg): Yes Bath Temperature: 36 C (96.8 F) Conductivity Meter Serial #: [id number] Machine Functioning Alarm Free? Yes Dialysis Bath: K+ (Potassium): 2 Ca+ (Calcium): 2.5 Na+ (Sodium): 137 HCO3 (Bicarb): 35 Bicarbonate Concentrate Lot No.: [id number] Acid Concentrate Lot No.: [id number] Chlorine Testing - Before each treatment and [...] to Education: Verbalized Understanding [facility] [...] Name: Jun Snyder Patient : 1965 Acct: [id number] Date of Admission: 01/19/2025 Room[facility]Bed: [facility] A Code Status: Full Code Allergies: Allergies Allergen Reactions Lisinopril Swelling and Angioedema Diagnosis: Patient Active Problem List Diagnosis Anemia Paroxysmal A-fib ([facility]) ([facility]) HTN (hypertension) ESRD on hemodialysis ([facility]) ([facility]) IgA nephropathy determined by biopsy of kidney Diverticulosis Nonrheumatic aortic valve stenosis Calcification of abdominal aorta ([facility]) Missed vaccination due to patient refusal Tobacco abuse Alcohol use disorder in remission Atrial flutter, unspecified type ([facility]) RSV (acute bronchiolitis due to respiratory syncytial virus) Aortic stenosis Upper GI bleed S/P AVR Acute hypoxic respiratory failure ([facility]) Acute encephalopathy Pneumoperitoneum Gastric ulceration Severe malnutrition ([facility]) ([facility]) Pleural effusion Peritonitis due to fungus ([facility]) History of abdominal surgery Leg DVT (deep venous thromboembolism), acute, left ([facility]) Ischemic ulcer of toe of left foot, limited to breakdown of skin ([facility]) Tracheostomy dependence ([facility]) Leukocytosis Decubitus ulcer of sacral region, unstageable ([facility]) Pneumonia of both lungs due to methicillin susceptible Staphylococcus aureus (MSSA) ([facility]) Sacral osteomyelitis (CMS/HCC) ([facility]) Acute respiratory failure with hypoxia ([facility]) [J96.01] Tracheostomy care ([facility]) [Z43.0] Pulmonary embolism ([facility]) 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 (current) use of antibiotics Complication of tracheostomy (CMS/HCC) ([facility]) BRBPR (bright red blood per rectum) Treatment: [...] 01/29/25 0800 -- -- -- -- Clear [place];Mark Warm;Dry Flat;Soft;Gastrostomy tube Active 01/29/25 0839 Alert (0) 3 Regular None (Room air) Clear [place] Warm;Dry;No swelling Soft Active 01/29/25 1210 Alert (0) 3 Regular None (Room air) Clear [place] -- -- -- Labs Lab Results Component [...] - Before each treatment: Dialysis Machine No.: [id number] RO Machine Number: [id number] Dialyzer Lot No.: [id number] Tubing Lot Number: [id number] All Connections Secure: Yes Venous Parameters Set: Yes Arterial Parameters Set: Yes NS Bag: Yes Saline Line Double Clamped: Yes Dialyzer: Nipro Prime Volume (mL): 200 mL RO Machine Number: [id number] RO Machine Log Sheet Completed: Yes Machine Alarm Self Test: Completed, Passed (01/29/25 0730) Air Foam Detector: Tested, Proper Function, pH Reading Extracorporeal Circuit Tested for Integrity: Yes Machine Conductivity: 13.8 Manual Conductivity: 13.8 Manual Ph: 7 Bleach Test (Neg): Yes Bath Temperature: 36 C (96.8 F) Conductivity Meter Serial #: [id number] Machine Functioning Alarm Free? Yes Dialysis Bath: K+ (Potassium): 3 Ca+ (Calcium): 2.5 Na+ (Sodium): 137 HCO3 (Bicarb): 35 Bicarbonate Concentrate Lot No.: [id number] Acid Concentrate Lot No.: [id number] Chlorine Testing - Before each treatment and every 4 hours: Time On: 0847 Time Off: 1147 Treatment Goal: 2L Weight Height: 177.8 cm (5' 10") (01/24/25 1321) Weight: 53.1 kg (117 lb 1 oz) (01/29/25 06) BMI (Calculated): 16.8 (01/29/25650) 1st check: less [...] 210 mmHg 100 600 Yes Pt stable [id number]. Pt stable , sleeping 01/29/25 1018 400 [...] -- -- -- -- Tx completed [id number] Vital Signs Patient Vitals for the past [...] Name: Jun Snyder Patient : 1965 Acct: [id number] Date of Admission: 01/19/2025 Room/Bed: T3-321/T3-321 A Code Status: Full Code Allergies: Allergies Allergen Reactions Lisinopril Swelling and Angioedema Diagnosis: Patient Active Problem List Diagnosis Anemia Paroxysmal A-fib ([facility]) ([facility]) HTN (hypertension) ESRD on hemodialysis ([facility]) ([facility]) IgA nephropathy determined by biopsy of kidney Diverticulosis Nonrheumatic aortic valve stenosis Calcification of abdominal aorta ([facility]) Missed vaccination due to patient refusal Tobacco abuse Alcohol use disorder in remission Atrial flutter, unspecified type ([facility]) RSV (acute bronchiolitis due to respiratory syncytial virus) Aortic stenosis Upper GI bleed S/P AVR Acute hypoxic respiratory failure ([facility]) Acute encephalopathy Pneumoperitoneum Gastric ulceration Severe malnutrition ([facility]) ([facility]) Pleural effusion Peritonitis due to fungus ([facility]) History of abdominal surgery Leg DVT (deep venous thromboembolism), acute, left ([facility]) Ischemic ulcer of toe of left foot, limited to breakdown of skin ([facility]) Tracheostomy dependence ([facility]) Leukocytosis Decubitus ulcer of sacral region, unstageable ([facility]) Pneumonia of both lungs due to methicillin susceptible Staphylococcus aureus (MSSA) ([facility]) Sacral osteomyelitis ([facility]) ([facility]) Acute respiratory failure with hypoxia ([facility]) [J96.01] Tracheostomy care ([facility]) [Z43.0] Pulmonary embolism ([facility]) 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 (current) use of antibiotics Complication of tracheostomy ([facility]) ([facility]) BRBPR (bright red blood per rectum) Treatment: [...] WBC 8.7 01/26/2025 0248 HGB 8.9 (L) 01/26/2025951 HGB 9.4 11/11/2024229 HCT 28.4 (L) 01/26/2025951 PLT 265 01/26/2025247 NA 136 01/26/2025247 K 5.1 01/26/2025247 CL 100 01/26/2025247 CO2 20 (L) 01/26/2025247 BUN 19 01/26/2025247 CREATININE 3.37 (H) 01/26/2025247 CREATININE 9.99 (H) 10/27/2019544 CALCIUM 9.0 01/26/2025247 PHOS 5.3 (H) 01/26/2025247 IV Drips and Rate/Dose heparin, 5-30 Units/kg/hr, Last Rate: 7 Units/kg/hr (01/26/251218) sodium chloride, 20 mL/hr, Last Rate: 20 mL/hr (01/25/252003) Safety - Before each treatment: Dialysis Machine No.: [id number] Machine Number: [id number] Dialyzer Lot No.: [id number] Tubing Lot Number: [id number] All Connections Secure: Yes Venous Parameters Set: Yes Arterial Parameters Set: Yes NS Bag: Yes Saline Line Double Clamped: Yes Dialyzer: Nipro Prime Volume (mL): 200 mL RO Machine Number: [id number] RO Machine Log Sheet Completed: Yes Machine Alarm Self Test: Completed, Passed (1226) (01/26/25 1226) Air Foam Detector: Tested, Proper Function, pH Reading Extracorporeal Circuit Tested for Integrity: Yes Machine Conductivity: 13.9 Manual Conductivity: 14 Manual Ph: 7.4 Bleach Test (Neg): Yes Bath Temperature: 36 C (96.8 F) Conductivity Meter Serial #: [id number] Machine Functioning Alarm Free? Yes Dialysis Bath: K+ (Potassium): 2 Ca+ (Calcium): 2.5 Na+ (Sodium): 137 HCO3 (Bicarb): 35 Bicarbonate Concentrate Lot No.: [id number] Acid Concentrate Lot No.: [id number] Chlorine Testing - Before each treatment and every 4 hours: Time On: 1245 Time Off: 1215 Treatment Goal: 2L Weight Height: 177.8 cm (5' 10") (01/24/25 1321) Weight: 58.9 kg (129 lb 13.6 oz) (01/19/25 06) BMI (Calculated): 18.63 (01/19/25656) 1st check: less [...] Pt playing on phone, UF removed 1806 05/02/25 1530 400 mL/min 860 ml/hr -120 mmHg 210 mmHg 70 600 Yes Pt tolerating tx well, UF removed 193501/26/25 1545 220 mL/min -- -- -- -- -- -- tx completed, UF [id number] Vital Signs Patient Vitals for the past [...] Name: Jun Snyder Patient : 1965 Acct: [id number] Date of Admission: 01/19/2025 Room/Bed: T3-321/T3321 A Code Status: Full Code Allergies: Allergies Allergen Reactions Lisinopril Swelling and Angioedema Diagnosis: Patient Active Problem List Diagnosis Anemia Paroxysmal A-fib (CMS/HCC) (HCC) HTN (hypertension) ESRD on hemodialysis (CMS/HCC) ([facility]) IgA nephropathy determined by biopsy of kidney [...] Acute respiratory failure with hypoxia ([facility]) [J96.01] Tracheostomy care ([facility]) [Z43.0] Pulmonary embolism ([facility]) FPC (current) use of antibiotics Complication of tracheostomy (CMS/HCC) ([facility]) BRBPR (bright red blood per rectum) Treatment: [...] - Before each treatment: Dialysis Machine No.: [id number] RO Machine Number: [id number] Dialyzer Lot No.: [id number] Tubing Lot Number: [id number] All Connections Secure: Yes Venous Parameters Set: Yes Arterial Parameters Set: Yes NS Bag: Yes Saline Line Double Clamped: Yes Dialyzer: Nipro Prime Volume (mL): 200 mL RO Machine Number: [id number] RO Machine Log Sheet Completed: Yes Machine Alarm Self Test: Completed, Passed (test passed at 0923) (01/24/25924) Air Foam Detector: Tested, Proper Function, pH Reading Extracorporeal Circuit Tested for Integrity: Yes Machine Conductivity: 13.8 Manual Conductivity: 13.8 Manual Ph: 7.2 Bleach Test (Neg): Yes (water check negative at 0910) Bath Temperature: 36 C (96.8 F) Conductivity Meter Serial #: [id number] Machine Functioning Alarm Free? Yes Dialysis Bath: K+ (Potassium): 3 Ca+ (Calcium): 2.5 Na+ (Sodium): 137 HCO3 (Bicarb): 35 Bicarbonate Concentrate Lot No.: [id number] Acid Concentrate Lot No.: [id number] Chlorine Testing - Before each treatment and [...] Name: Jun Snyder Patient : 1965 Acct: [id number] Date of Admission: 01/19/2025 [facility] A Code Status: Full Code Allergies: Allergies Allergen Reactions Lisinopril Swelling and Angioedema Diagnosis: Patient Active Problem List Diagnosis Anemia Paroxysmal A-fib ([facility]) ([facility]) HTN (hypertension) ESRD on hemodialysis ([facility]) ([facility]) IgA nephropathy determined by biopsy of kidney Diverticulosis Nonrheumatic aortic valve stenosis Calcification of abdominal aorta ([facility]) Missed vaccination due to patient refusal Tobacco abuse Alcohol use disorder in remission Atrial flutter, unspecified type ([facility]) RSV (acute bronchiolitis due to respiratory syncytial virus) Aortic stenosis Upper GI bleed S/P AVR Acute hypoxic respiratory failure ([facility]) Acute encephalopathy Pneumoperitoneum Gastric ulceration Severe malnutrition ([facility]) ([facility]) Pleural effusion Peritonitis due to fungus ([facility]) History of abdominal surgery Leg DVT (deep venous thromboembolism), acute, left ([facility]) Ischemic ulcer of toe of left foot, limited to breakdown of skin ([facility]) Tracheostomy dependence ([facility]) Leukocytosis Decubitus ulcer of sacral region, unstageable ([facility]) Pneumonia of both lungs due to methicillin susceptible Staphylococcus aureus (MSSA) ([facility]) Sacral osteomyelitis ([facility]) ([facility]) Acute respiratory failure with hypoxia ([facility]) [J96.01] Tracheostomy care (HCC) [Z43.0] Pulmonary embolism (HCC) 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 (current) use of antibiotics Complication of tracheostomy [...] WBC 10.6 01/22/2025 0419 HGB 8.0 (L) 01/22/2025418 HGB 9.4 11/11/2024 0230 HCT 25.1 (L) 01/22/2025418 PLT 330 01/22/2025418 NA 132 (L) 01/22/2025418 K 4.4 01/22/2025418 CL 94 (L) 01/22/2025418 CO2 25 01/22/2025418 BUN 53 (H) 01/22/2025418 CREATININE 4.18 (H) 01/22/2025418 CREATININE 9.99 (H) 10/27/2019 0545 CALCIUM 9.8 01/22/2025418 PHOS 6.8 (H) 01/22/2025418 IV Drips and Rate/Dose Safety - Before each treatment: Dialysis Machine No.: [id number] RO Machine Number: [id number] Dialyzer Lot No.: [id number] Tubing Lot Number: [id number] All Connections Secure: Yes Venous Parameters Set: Yes Arterial Parameters Set: Yes NS Bag: Yes Saline Line Double Clamped: Yes Dialyzer: Nipro Prime Volume (mL): 250 mL RO Machine Number: [id number] RO Machine Log Sheet Completed: Yes Machine Alarm Self Test: Completed, Passed (01/22/25850) Air Foam Detector: Tested, Proper Function, pH Reading Extracorporeal Circuit Tested for Integrity: Yes Machine Conductivity: (13.8) Manual Conductivity: 14 Manual Ph: 7.2 Bleach Test (Neg): Yes Bath Temperature: 36 C (96.8 F) Conductivity Meter Serial #: [id number] Machine Functioning Alarm Free? Yes Dialysis Bath: K+ (Potassium): 2 Ca+ (Calcium): 2.5 Na+ (Sodium): 137 HCO3 (Bicarb): 35 Bicarbonate Concentrate Lot No.: [id number] Acid Concentrate Lot No.: [id number] Chlorine Testing - Before each treatment and every 4 hours: Time On: 0902 Time Off: 1203 Treatment Goal: 0-2L as tolerated MAP >65 Weight Height: 177.8 cm (5' 10") (01/19/25656) Weight: 58.9 kg (129 lb 13.6 oz) (01/19/25656) BMI (Calculated): 18.63 (01/19/2557) 1st check: less than 0.1 ppm at: [...] -- 76 17 94 % 01/22/25 0200 -- -- 81 17 94 % 01/22/25 [...] Name: Jun Snyder Patient : 1965 Acct: [id number] Date of Admission: 01/19/2025 Room[facility] A Code Status: Full Code Allergies: Allergies [...] hypoxia (HCC) [J96.01] Tracheostomy care ([facility]) [Z43.0] Pulmonary embolism (HCC) FPC (current) use of antibiotics Complication of tracheostomy (CMS/HCC) ([facility]) Treatment: Hemodialysis 1:1 Priority: Routine Location: Bedside [...] 0514 K 4.8 01/20/2025 0514 CL 98 01/20/2025513 CO2 22 01/20/2025 0514 BUN 91 (H) 01/20/2025 0514 CREATININE 4.31 (H) 01/20/2025 0514 CREATININE 9.99 (H) 10/27/2019 0545 CALCIUM 9.2 01/20/2025513 PHOS 6.1 (H) 01/20/2025513 IV Drips and Rate/Dose pantoprazole (ProtoNix) 80 mg in sodium chloride 0.9 % 100 mL (0.8 mg/mL) infusion, 8 mg/hr Safety - Before each treatment: Dialysis Machine No.: [id number] RO Machine Number: [id number] Dialyzer Lot No.: [id number] Tubing Lot Number: [id number] All Connections Secure: Yes Venous Parameters Set: Yes Arterial Parameters Set: Yes NS Bag: Yes Saline Line Double Clamped: Yes Dialyzer: Nipro Prime Volume (mL): 200 mL RO Machine Number: [id number] RO Machine Log Sheet Completed: Yes Machine Alarm Self Test: Completed, Passed (1000) (01/20/25 1000) Air Foam Detector: Tested, Proper Function, pH Reading Extracorporeal Circuit Tested for Integrity: Yes Machine Conductivity: 13.6 Manual Conductivity: 13.8 Manual Ph: 7.2 Bleach Test (Neg): Yes Bath Temperature: 36 C (96.8 F) Conductivity Meter Serial #: [id number] Machine Functioning Alarm Free? Yes Dialysis Bath: K+ (Potassium): 2 Ca+ (Calcium): 2.5 Na+ (Sodium): 137 HCO3 (Bicarb): 35 Bicarbonate Concentrate Lot No.: [id number] Acid Concentrate Lot No.: [id number] Chlorine Testing - Before each treatment and [...] 600 Yes Primary RN at bedside, Lucinda givenat this time, UF removed 726 01/20/25 [...] Education: Verbalized Understanding documented in this encounter [facility] 02-01-2025 Miscellaneous Notes Formattin g of this note might be different from the original. 7000 created in H[facility] per TCC request. Facility notified via Careport. Authorization approved for the [facility] through 02/02/25, discharge orders placed, ROSENDO completed. Transportation placed and confirmed for today 02/01/25 at 330pm to the [facility], physician/patient/executive legal secretary/RN aware. WELLHEAD PUMPER tasked to send 7000 and DC summary. Hep B panels, 3 days of HD flowsheets, MAR and OPAT sent to the [facility] via [facility]. Call placed to the [facility] to confirm able to still take patient [...] Nutrition Support Outcome: Progressing Updates placed to [facility] via Careport per TCC request. [...] Nutrition Support Outcome: Progressing Message sent to Catheter Builder to start [facility] auth for [facility]. Problem: Pain - Adult Goal: Verbalizes/displays adequate [...] order to start auth to return to [facility] per previous TCC note of plan. [...] or Improved Outcome: Progressing Updates placed to SNF Return - [facility] via Careport per TCC request. Await review and response regarding ability to accept. TCC notified. Tasked [facility] to send updates to [facility], per their request. Warfarin bridging per MD notes, patient will need NEW auth for return to [facility]. Problem: Pain - Adult Goal: [...] Nutrition Support Outcome: Progressing [facility]. Care Management Progress Note PCU transfer pending. Received one unit PRBC this AM for low Hgb. HD today. Heparin drip ongoing. IVAB (plan for 6 week course). Wound vac to sacral wound. Room Air. Dysphagia diet; pureed. DC plan - [facility]. Facility updated via careport. WELLHEAD PUMPER asked to send dialysis note per their [...] Early Mobility/Exercise Safety Screen: Activity: Bed mobility -[facility] Score: Bed activity LDAs Peripheral IV 01/19/25 Right Forearm (Active) Number of days: 4 Peripheral IV 01/23/25 Anterior;Distal;Right Forearm (Active) Number of days: 0 Enterostomy Gastric 20 Fr. LUQ (Active) Number of days: 70 - Central Line indicated: N/A - Payne indicated: N/A OPAT placed to [facility] via Careport per TCC request. 01/25/25 1047 Rapid Rounds Attendance Director Digital Catalogue Planned Discharge Disposition SNF Today we still await Administering IV medications;Marine Steamfitter recommendations (comment);Clinical stability;Symptomatic control;Post-discharge arrangement completion (comment) Patient remains on MICU. S/P colonoscopy 01/24-negative for active bleeding. Heparin drip resumed post procedure. Wound vac to sacral wound; IVAB till 02/13; OPAT under chart review > media. Plan for MBSS. Room Air. DC plan - [facility] when medically appropriate. CM will continue [...] Interventions Goal: Nutrition Support Outcome: Progressing [facility] Patient Name: Jun Snyder Procedure Date: 01/24/2025 12:37 PM Gender: Male Date of : 1965 Age: 59 Admit Type: Inpatient Note Status: Finalized Endoscopist: Chadd Davis MD, [id number] Procedure: Colonoscopy Indications: Evaluation of unexplained GI [...] by the physician, the nurse and the code enforcement officer in the pre-procedure area in the procedure [...] anticoagulant use Procedure Code(s): --- Professional --- 88360, Colonoscopy, flexible; diagnostic, including collection of specimen(s) by brushing or washing, when performed (separate procedure) --- Technical --- 45494, Colonoscopy, flexible; diagnostic, including collection of specimen(s) by brushing or washing, when performed (separate procedure) Diagnosis Code(s): --- Professional --- K64.0, First degree hemorrhoids K92.1, Melena (includes Hematochezia) Z79.01, FPC (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 anticoagulants K57.30, Diverticulosis of large intestine without perforation or abscess without bleeding --- Technical --- K64.0, First degree hemorrhoids K92.1, Melena (includes Hematochezia) Z79.01, FPC (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 anticoagulants K57.30, Diverticulosis of large intestine without perforation or abscess without bleeding CPT copyright 2021 [employer]. All rights reserved. The codes documented in this report are preliminary and upon side piece coverer review may be revised to meet current [...] Early Mobility/Exercise Safety Screen: Activity: Bed mobility -[facility] Score: Lying in bed LDAs Peripheral [...] Note: Diagnosis: Principal Problem: Complication of tracheostomy ([facility]) ([facility]) Active Problems: Severe malnutrition ([facility]) ([facility]) Chief Complaint: Jun Snyder is a 59 [...] care team, reviewed Health Care Power of Birthing Nurse (HCPOA) with patient. Patient agreeable to complete [...] secondary agent. DC plan - return to [facility]. CM will continue to follow Length of Stay (Days): 1 GMLOS: 4.5 Images from the original note were not included. [facility] Palliative Care Transitions of Care Note Jun [...] to have bile peritonitis" 11/28/24: transferred to [facility] He ended up developing sacral ulcer and osteomyelitis at [facility] He then ended up dislodging his tracheostomy, and was brought to [facility] ED for further care. Palliative care consulted for goals of care. Goals of care - Patient has capacity to make medical decisions - legal surrogate decision maker HCPOA Omar, 1st alternate is significant other Toma - goals of care include: 1) to continue current management, continue with aggressive medical therapy, procedures, antibiotics at this time - planning to eventually discharge to [facility] - will forward chart to Palliative RN [...] Sacral Osteomyelitis - currently on antibiotics at [facility] for 6 weeks (through 02/13/25) - sacral [...] AV replacement Supratherapeutic INR - [facility] [employer] Mirror valve in 09/2024 - coumadin held due to bleeding and supratherapeutic levels Chronic respiratory failure s/p tracheostomy Tracheostomy dislodgement - has been saturating well without trach on RA so has not been replaced FOLLOW UP TESTING, PENDING RESULTS OR REFERRALS AT TRANSITIONAL CARE VISIT: No DISPOSITION: Skilled Rehab Facility FACILITY/HOME CARE AGENCY NAME: [facility] Follow up with Palliative Care on patient [...] The patient was placed on a cardiac monitor technician and vital signs, pulse oximetry, and level [...] as signed by this procedure note. [facility] Patient Name: Jun Snyder Procedure Date: 01/21/2025 9:59 AM Gender: Male Date of : 1965 Age: 59 Admit Type: Inpatient Note Status: Finalized Endoscopist: ELDON Alba MD, [id number] Procedure: Upper GI endoscopy Indications: Acute post [...] by the physician, the nurse and the code enforcement officer in the pre-procedure area in the procedure [...] loss: None. Procedure Code(s): --- Professional --- 79913, Esophagogastroduodenoscopy, flexible, transoral; diagnostic, including collection of specimen(s) by brushing or washing, when performed (separate procedure) --- Technical --- 67917, Esophagogastroduodenoscopy, flexible, transoral; diagnostic, including collection of [...] D62, Acute posthemorrhagic anemia CPT copyright 2021 [employer]. All rights reserved. The codes documented in this report are preliminary and upon side piece coverer review may be revised to meet current [...] Care Plan Patient was transferred over from [facility] after self-dislodged tracheostomy this [...] and treatment plans Return referral placed to [facility] via Careport per TCC request. Await review and response regarding ability to accept. TCC notified. 01/19/25 1300 Rapid Rounds Attendance Director Digital Catalogue Planned Discharge Disposition SNF Today we still await Clinical stability;Marine Steamfitter recommendations (comment);Symptomatic control;Post-discharge arrangement completion (comment) Patient admitted due to trach dislodgement. Patient was [facility]; there only a matter of hours per [...] He would like patient to return to [facility] SNF is able at DC. Does not want patient to return to [facility] WELLHEAD PUMPER asked to place referral to [facility]. CM will continue to follow for DC [...] improved Outcome: Progressing documented in this encounter [facility] 02-01-2025 History of Presen t illness Narrative Images from the original note were not included. [facility] Medical [facility] - Infectious Diseases Advanced Practice Provider [...] negative 01/22 A baumannii screen: negative Previous ([facility]) 01/02- sacral wound cx- E faecalis (Amp-S), skin ila, Clostridium clostrioforme 01/01- blood cx- 2/2 NG 12/30- blood cx- 2/2 NGTD 12/30- sputum cx- MSSA, resp ila 12/25- blood cx- 2/2 negative 12/14- sputum cx- MSSA, resp ila 12/14- MRSA pcr- MSSA 12/11- sputum cx- MSSA, resp ila Previous ([facility]) 11/28- L pleural fluid- negative 11/16- abd [...] coronavirus, RSV 10/16- BAL cx- resp ila 1/15- GI PCR- negative 10/03- blood cx- 2/2 [...] of use of antimicrobials. Mikala MORAN PA-C [facility] Infectious Disease Nephrology Progress Note Following for [...] Speech-Language Pathology SPEECH LANGUAGE PATHOLOGY [facility] Dysphagia Treatment Note Patient Name: uJn Snyder Evaluation Date: 02/01/2025 Date of : [...] strategies. Plan & Recommendations Plan: Continue acute ASSOCIATE DRAFTER therapy per initial plan of care and [...] Expected End: 02/02/25 Resolved: 01/25/25 Therapy Time ASSOCIATE DRAFTER Individual Minutes Time In: 08 Time Out: 08 Minutes: 13 Khadijah Carranza CCC-ASSOCIATE DRAFTER Hospitalist Progress Note Subjective: Admit Date: 01/19/2025 PCP: Leilani Han Room#: 1C-144/1C-144 A Chief Complaint Patient presents with Tracheostomy Tube Change Brief Hospital course: Jun Snyder is a 59 y.o. male who who presented to [facility] 01/19 after inadvertent removal of his tracheostomy. He was transferred to [facility] ICU for surgical evaluation. On arrival he [...] HD successfully. hemodynamically stable. Transferred out to [facility] 01/27 ID following for sacral osteomyelitis, s/p wound debridement to bone on 01/02, cultures grew E faecalis and Clostridium, continue with renally dosed ampicillin sulbactam for 6 weeks course through 02/13/2025, needs tunneled line, status post IR CVC tunneled line on 01/29 Nephrology following, on dialysis ASSOCIATE DRAFTER following PT/OT recommends SNF Patient will be [...] Date Acute renal failure (ARF) ([facility]) 10/19/2019 Anemia 12/30/2021 Calcification of abdominal aorta ([facility]) 10/08/202309/[address] abd Diverticulosis 10/08/2023 [place] ([facility]) 10/26/2019 Hemodialysis [place] ([facility]) HTN (hypertension) 12/01/2022 Hypertension IgA nephropathy IgA nephropathy determined by biopsy of kidney 10/26/2019 Missed vaccination due to patient refusal 10/08/2023 Has a number of non-scientific based beliefs which interfere with his understanding and acceptance of the medical benefit of vaccination. Nonrheumatic aortic valve stenosis 10/08/2023 Paroxysmal A-fib ([facility]) ([facility]) 08/18/2023 Tobacco abuse 10/08/2023 Adult diet Dysphagia [...] by ID -S/p tunneled central line placement -ASSOCIATE DRAFTER follow, dysphagia diet -PT OT DC recommend [...] MD Division of Hospital Medicine Inpatient Medical Services/[facility] Anticoagulation Management Service ([facility]) Inpatient Warfarin Consult HPI: Jun Snyder is a 59 y.o. male admitted on 01/19/2025 for Complication of tracheostomy ([facility]/HCC) ([facility]) [J95.00] Past Medical History: Diagnosis Date Acute renal failure (ARF) ([facility]) 10/19/2019 Anemia 12/30/2021 Calcification of abdominal aorta ([facility]) 10/08/202309/[address] abd Diverticulosis 10/08/2023 ESRD on hemodialysis (CMS/HCC) ([facility]) 10/26/2019 Hemod[place] ([facility]) HTN (hypertension) 12/01/2022 Hypertension IgA nephropathy IgA nephropathy determined by biopsy of kidney 10/26/2019 Missed vaccination due to patient refusal 10/08/2023 Has a number of non-scientific based beliefs which interfere with his understanding and acceptance of the medical benefit of vaccination. Nonrheumatic aortic valve stenosis 10/08/2023 Paroxysmal A-fib [place] ([facility]) 08/18/2023 Tobacco abuse 10/08/2023 Patient is on warfarin for Afib, mechanical AVR and has a goal INR 2.0 - 3.0. Warfarin is currently managed by facility, has yet to be seen by [facility]. Pt's home dose of warfarin is not [...] dose accordingly 3. Will facilitate f/u at [facility] upon discharge Tiffanie Dial [facility] is available daily [phone] via Epic Chat. If no response on [employer] Chat then please page [phone]. Images from the original note were not included. OCCUPATIONAL THERAPY [facility] Re-Evaluation Name/MRN: Jair Snyder ([id number]) Evaluation Date: 01/31/2025 Date of : 1965 Admission Date: 01/19/2025 2:13 AM Age: 59 y.o. Room/Bed: 1C-144/1C-144 A Discharge Recommendation: Jail Facility Other: DME [...] Date Acute renal failure (ARF) ([facility]) 10/19/2019 Anemia 12/30/2021 Calcification of abdominal aorta ([facility]) 10/08/202309/[address] abd Diverticulosis 10/08/2023 ESRD [place] hemodialysis [place] ([facility]) 10/26/2019 Hemodialysis [place] ([facility]) HTN (hypertension) 12/01/2022 Hypertension IgA nephropathy IgA nephropathy determined by biopsy of kidney 10/26/2019 Missed vaccination due to patient refusal 10/08/2023 Has a number of non-scientific based beliefs which interfere with his understanding and acceptance of the medical benefit of vaccination. Nonrheumatic aortic valve stenosis 10/08/2023 Paroxysmal A-fib ([facility]) ([facility]) 08/18/2023 Tobacco abuse 10/08/2023 Past Surgical History: Past Surgical History: Procedure Laterality Date APPENDECTOMY CARDIAC CATHETERIZATION N/A 10/09/2024 Performed by Bob Watson MD at [facility] Cardiac Cath/EP Lab CARDIAC CATHETERIZATION Bilateral 11/01/2024 Performed by Bob Watson MD at [facility] Cardiac Cath/EP Lab CARDIAC CATHETERIZATION N/A 11/01/2024 Performed by Bob Watson MD at [facility] Cardiac Cath/EP Lab COLONOSCOPY N/A 01/24/2025 Performed by Chadd Davis MD at [facility] ENDOSCOPY FISTULAGRAM (HISTORICAL) Left 09/15/2021 LEFT UPPER ARM HX AV FISTULA CREATION IR EMBOLIZATION 10/14/2024 IR EMBOLIZATION 10/14/2024 [facility] SPECIAL PROCEDURES IR FISTULAGRAM 08/07/2022 IR FISTULAGRAM 08/07/2022 [facility] IR IMAGING TONSILLECTOMY (HISTORICAL) Admission Diagnosis: Patient Active Problem List Diagnosis Date Noted Severe malnutrition (CMS/HCC) ([facility]) 01/19/2025 Complication of tracheostomy (CMS/HCC) ([facility]) 01/19/2025 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 (current) use of antibiotics 01/12/2025 Acute respiratory failure with hypoxia ([facility]) [J96.01] 01/08/2025 Tracheostomy care ([facility]) [Z43.0] 01/08/2025 Pulmonary embolism ([facility]) 01/08/2025 Sacral osteomyelitis (CMS/HCC) ([facility]) 01/03/2025 Pneumonia of both lungs due to methicillin susceptible Staphylococcus aureus (MSSA) ([facility]) 01/01/2025 Leukocytosis 12/30/2024 Decubitus ulcer of sacral region, unstageable ([facility]) 12/30/2024 Peritonitis due to fungus ([facility]) 11/30/2024 History of abdominal surgery 11/30/2024 Leg DVT (deep venous thromboembolism), acute, left ([facility]) 11/30/2024 Ischemic ulcer of toe of left foot, limited to breakdown of skin ([facility]) 11/30/2024 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[facility]) 11/30/2024 Pleural effusion 11/28/2024 Gastric ulceration 2024 Atrial flutter, unspecified type ([facility]) 10/03/2024 RSV (acute bronchiolitis due to respiratory syncytial virus) 10/03/2024 Diverticulosis 10/08/2023 Nonrheumatic aortic valve stenosis 10/08/2023 Calcification of abdominal aorta ([facility]) 10/08/2023 Missed vaccination due to patient refusal 10/08/2023 Tobacco abuse 10/08/2023 Alcohol use disorder in remission 10/08/2023 Paroxysmal A-fib ([facility]) ([facility]) 08/18/2023 HTN (hypertension) 12/01/2022 ESRD on hemodialysis ([facility]) ([facility]) 10/26/2019 IgA nephropathy determined by biopsy of kidney 10/26/2019 BRBPR (bright red blood per rectum) 01/19/2025 Aortic stenosis 10/03/2024 Upper GI bleed 10/03/2024 S/P AVR 10/03/2024 Acute hypoxic respiratory failure ([facility]) 10/03/2024 Acute encephalopathy 10/03/2024 Pneumoperitoneum 10/03/2024 Anemia [...] Daily Activity Raw Score: 12 ADL Inpatient [facility] G-Code Modifier: CL Plan Pt would [...] of Care supervision is transferred to a [facility] Therapy Services Occupational Therapist. Goals and/or treatment plan was established in collaboration with patient/family/other representatives. Images from the original note were not included. Speech-Language Pathology SPEECH LANGUAGE PATHOLOGY [facility] Dysphagia Treatment Note Patient Name: Jun [...] diet and for oropharyngeal strengthening. Continue acute ASSOCIATE DRAFTER therapy per initial plan of care and [...] Expected End: 02/02/25 Resolved: 01/25/25 Therapy Time ASSOCIATE DRAFTER Individual Minutes Time In: 1454 Time Out: 1515 Minutes: 21 FRANKLIN Carmona Images from the original note were not included. OCCUPATIONAL THERAPY [facility] Name/MRN: Jair Snyder ([id number]) Date: 01/31/2025 Attempted OT re-eval once pt returned from dialysis, pt very fatigued. Initially responsive to OT then stops conversing and unable to remain roused. Will follow and attempt as able. [place] Ramirez Images from the original note were not included. [facility] - Infectious Diseases Advanced Practice Provider [...] negative 01/22 A baumannii screen: negative Previous ([facility]) 01/02- sacral wound cx- E faecalis (Amp-S), skin ila, Clostridium clostrioforme 01/01- blood cx- 2/2 NG 12/30- blood cx- 2/2 NGTD 12/30- sputum cx- MSSA, resp ila 12/25- blood cx- 2/2 negative 12/14- sputum cx- MSSA, resp ila 12/14- MRSA pcr- MSSA 12/11- sputum cx- MSSA, resp ila Previous ([facility]) 11/28- L pleural fluid- negative 11/16- abd [...] of use of antimicrobials. Mikala MORAN PA-C [facility] Infectious Disease Images from the original note were not included. OCCUPATIONAL THERAPY [facility] Name/MRN: Jair Snyder ([id number]) Date: 01/31/2025 Attempted OT re-eval this AM, [...] any questions or concerns Bree Molina APRN SECURITY VEHICLE PATROL OFFICER A-G SUPERVISOR PROP MAKING [facility] [place] [phone] Pt seen and examined independently by me. I reviewed with STUDENT SERVICES COUNSELOR-SECURITY VEHICLE PATROL OFFICER the medical history and the findings on physical examination. I discussed the patient s diagnosis and concur with the treatment plan as documented in his note. Please call [phone] or message me through [employer] with any questions or concerns. [facility] Anticoagulation Management [facility] ([facility]) Inpatient Warfarin Consult HPI: Jun Snyder is a 59 y.o. male admitted on 01/19/2025 for Complication of tracheostomy ([facility]) ([facility]) [J95.00] Past Medical History: Diagnosis Date Acute renal failure (ARF) ([facility]) 10/19/2019 Anemia 12/30/2021 Calcification of abdominal aorta ([facility]) 10/08/202309/[address] abd Diverticulosis 10/08/2023 ESRD on hemodialysis ([facility]) ([facility]) 10/26/2019 Hemodialysis patient ([facility]) ([facility]) HTN (hypertension) 12/01/2022 Hypertension IgA nephropathy IgA [...] dose accordingly 3. Will facilitate f/u at [facility] upon discharge Tiffanie Dial RPh [facility] is available daily [phone] via [employer] Chat. If no response on [employer] Chat then please page [phone]. Hospitalist Progress Note Subjective: Admit Date: 01/19/2025 PCP: Leilani Han Room#: 1C-144/1C-144 A Chief Complaint Patient presents with Tracheostomy Tube Change Brief Hospital course: Jun Snyder is a 59 y.o. male who who presented to [facility] 01/19 after inadvertent removal of his tracheostomy. He was transferred to [facility] ICU for surgical evaluation. On arrival he [...] HD successfully. hemodynamically stable. Transferred out to [facility] 01/27 ID following for sacral osteomyelitis, s/p wound debridement to bone on 01/02, cultures grew E faecalis and Clostridium, continue with renally dosed ampicillin sulbactam for 6 weeks course through 02/13/2025, needs tunneled line, status post IR CVC tunneled line on 01/29 Nephrology following, on dialysis ASSOCIATE DRAFTER following PT recommends SNF Interval History: 01/31/2025-No overnight issues. Patient is seen and examined Patient is resting in his bed Dialysis today Denies any new acute complaints Labs reviewed, ESRD picture, hemoglobin 8.8, stable Case and plan discussed with patient and bedside nurse. All questions answered. Past Medical History: Past Medical History: Diagnosis Date Acute renal failure (ARF) ([facility]) 10/19/2019 Anemia 12/30/2021 Calcification of abdominal aorta ([facility]) 10/08/202309/[address] abd Diverticulosis 10/08/2023 ESRD on hemodialysis ([facility]) ([facility]) 10/26/2019 Hemodialysis patient ([facility]) ([facility]) HTN (hypertension) 12/01/2022 Hypertension IgA nephropathy IgA [...] 20 mL/hr, Last Rate: 20 mL/hr (01/30/25 067) Assessment Data: (CAT1) Reviewed 2 notes from [...] by ID -S/p tunneled central line placement -ASSOCIATE DRAFTER follow, dysphagia diet -PT OT DC planning [...] MD Division of Hospital Medicine Inpatient Medical Services/[facility] Anticoagulation Management Service ([facility]) Inpatient Warfarin Consult HPI: Jun Snyder is a 59 y.o. male admitted on 01/19/2025 for Complication of tracheostomy ([facility]) ([facility]) [J95.00] Past Medical History: Diagnosis Date Acute renal failure (ARF) ([facility]) 10/19/2019 Anemia 12/30/2021 Calcification of abdominal aorta ([facility]) 10/08/202309/[address] abd Diverticulosis 10/08/2023 ESRD on hemodialysis ([facility]) ([facility]) 10/26/2019 Hemodialysis patient ([facility]) ([facility]) HTN (hypertension) 12/01/2022 Hypertension IgA nephropathy IgA [...] will continue to hold warfarin. Please notify [facility] when able to resume warfarin. 2. Monitor for s/s of bleeding and drug interactions. Will adjust dose accordingly 3. Will facilitate f/u at [facility] upon discharge Fatuma Odonnell RPh [facility] is available daily [phone] via Anywhere to Go. If no response on [employer] Chat then please page [phone]. Images from the original note were not included. OCCUPATIONAL THERAPY [facility] Name/MRN: Jair Snyder ([id number]) Date: 01/30/2025 Attempted OT services however, Pt [...] candidate for diet upgrade. Christina Limon MS, CCC/ASSOCIATE DRAFTER Nutrition Assessment Type and Reason for Visit: [...] Severe who remains admitted after presenting to [facility] on 01/19 after inadvertent removal of his tracheostomy. He was transferred to [facility] ICU for surgical evaluation, however pt was maintaining appropriate O2 saturations on room air and the decision was made to leave the tracheostomy out. Pt transferred to [facility] later that day (01/19). Course c/b [...] MWF schedule with Nephrology following. Transferred to [facility] 01/27. ID continues following for sacral osteomyelitis and recs IV Unasyn x 6 weeks--> stop date 02/13. Course c/b anxiousness and paranoia, often refusing care and wound dressing changes. In terms of nutrition, pt was only receiving nutrition via PEG DOOR TECHNICIAN. He was NPO 01/19, Nepro @ 50mls/hr initiated 01/20 which ran until pt was made NPO/CLD for colonoscopy prep 01/23. Remained NPO 01/24, underwent MBSS 01/25 with recs for pureed/thin which remains his current diet with ASSOCIATE DRAFTER following and recommending the same. PO intake [...] bedscale, 10/31: 200#, 11/28: 161#, 01/18: 142#) [place] Body Weight (lbs) (Calculated): 166 lbs [place] Body Weight (Kg) (Calculated): 75 kg % [place] Body Weight (Calculated): 70.5 % BMI (kg/m2) [...] soon to determine Marilu Pollock RD Contact: *[phone] Images from the original note were not included. PHYSICAL THERAPY [facility] Treatment Note Name/MRN: Jair Snyder ([id number]) Date of : 1965 Age: 59 y.o. [...] from the original note were not included. [facility] - Infectious Diseases Advanced Practice Provider [...] Behavior normal. Labs: Recent Labs 01/28/25 0632 01/29/257 01/30/257 NA [...] negative 01/22 A baumannii screen: negative Previous ([facility]) 01/02- sacral wound cx- E faecalis (Amp-S), [...] be of moderate complexity. Mikala MORAN PA-C [facility] Infectious Disease Hospitalist Progress Note Subjective: Admit Date: 01/19/2025 PCP: Leilani Han Room#: 1C-144/1C-144 A Chief Complaint Patient presents with Tracheostomy Tube Change Brief Hospital course: Jun Snyder is a 59 y.o. male who who presented to [facility] 01/19 after inadvertent removal of his tracheostomy. He was transferred to [facility] ICU for surgical evaluation. On arrival he [...] line on 01/29 Nephrology following, on dialysis ASSOCIATE DRAFTER following PT recommends SNF Interval History: 01/30/2025-No [...] Date Acute renal failure (ARF) ([facility]) 10/19/2019 Anemia 12/30/2021 Calcification of abdominal aorta ([facility]) 10/08/202309/[address] abd Diverticulosis 10/08/2023 [place] ([facility]) 10/26/2019 Hemod[place] ([facility]) HTN (hypertension) 12/01/2022 Hypertension IgA nephropathy IgA nephropathy determined by biopsy of kidney 10/26/2019 Missed vaccination due to patient refusal 10/08/2023 Has a number of non-scientific based beliefs which interfere with his understanding and acceptance of the medical benefit of vaccination. Nonrheumatic aortic valve stenosis 10/08/2023 Paroxysmal A-fib ([facility] ([facility]) 08/18/2023 Tobacco abuse 10/08/2023 Adult diet Dysphagia [...] Recent Labs 01/28/25 0632 01/29/25 0337 01/30/25 004 NA 137 134* 135* K 3.6 3.7 [...] by ID -S/p tunneled central line placement -ASSOCIATE DRAFTER follow, dysphagia diet -PT OT DC planning [...] MD Division of Hospital Medicine Inpatient Medical Services/[facility] Nephrology Progress Note Mr. Jun Snyder is [...] Nicole MD 01/30/2025 9:08 AM [facility] [address], [address] [place] [address] Office: [phone] Images from the original note were not included. Speech-Language Pathology SPEECH LANGUAGE PATHOLOGY [facility] Dysphagia Treatment Note Patient Name: Jun [...] Expected End: 02/02/25 Resolved: 01/25/25 Therapy Time ASSOCIATE DRAFTER Individual Minutes Time In: 1438 Time Out: 1456 Minutes: 18 FRANKLIN Bailon Images from the original note were not included. [facility] - Infectious Diseases Attending [...] 0545 GLUCOSE 80 01/29/2025336 CALCIUM 9.8 01/29/2025 033 PROT 7.6 01/22/2025 0419 BILITOT 0.9 01/22/2025 [...] low complexity. Radha Yee MD [facility] Nephrology Progress Note Mr. Jun Snyder is [...] status and labs. Please message me through Tk20 chat with any questions or concerns. Wellington Nicole MD 01/29/2025 10:13 AM [facility] [address] [place] [address], [address] [place] [address] Office: [phone] Images from the original note were not included. Hospitalist Progress Note 01/29/2025 Subjective: Admit Date: 01/19/2025 PCP: Leilani Han Room#: 1C-144/1C-144 A Brief Hospital Summary: Jun Snyder is a 59 y.o. male who who presented to [facility] 01/19 after inadvertent removal of his tracheostomy. He was transferred to [facility] ICU for surgical evaluation. On arrival he [...] HD successfully. hemodynamically stable. Transferred out to [facility] 01/27 Interval History: No overnight issues. [...] Date Acute renal failure (ARF) ([facility]) 10/19/2019 Anemia 12/30/2021 Calcification of abdominal aorta ([facility]) 10/08/202309/[address] abd Diverticulosis 10/08/2023 ESRD [place] hemodialysis [place] ([facility]) 10/26/2019 Hemodialysis [place] ([facility]) HTN (hypertension) 12/01/2022 Hypertension IgA nephropathy IgA nephropathy determined by biopsy of kidney 10/26/2019 Missed vaccination due to patient refusal 10/08/2023 Has a number of non-scientific based beliefs which interfere with his understanding and acceptance of the medical benefit of vaccination. Nonrheumatic aortic valve stenosis 10/08/2023 Paroxysmal A-fib ([facility]) ([facility]) 08/18/2023 Tobacco abuse 10/08/2023 LABS: CBC: Recent [...] QT Interval 413 QTC Interval 515 P Vandiver 69 QRS Vandiver 93 T Wave Vandiver 87 CO Interval 148 Impression Sinus rhythm Left atrial [...] sodium chloride 0.9 % 100 mL IVPB (Add-[place]), 3,000 mg, IntraVENous, q24h, Radha Yee MD, [...] mg, IntraVENous, q5 min PRN, Earlene Lozano, STUDENT SERVICES COUNSELOR - SECURITY VEHICLE PATROL OFFICER, 5 mg at 01/25/25 1846 metoprolol tartrate (Lopressor) tablet 25 mg, 25 mg, Per G Tube, BID, Earlene Lozano, DENIA - SECURITY VEHICLE PATROL OFFICER, 25 mg at 01/28/25 2222 midodrine (Proamatine) [...] by ID Ordered tunneled central line placement ASSOCIATE DRAFTER follow, dysphagia diet PT OT DC planning Past Medical History: Diagnosis Date Acute renal failure (ARF) ([facility]) 10/19/2019 Anemia 12/30/2021 Calcification of abdominal aorta ([facility]) 10/08/202309/[address] abd Diverticulosis 10/08/2023 ESRD [place] hemodialysis [place] ([facility]) 10/26/2019 Hemodialysis [place] ([facility]) HTN (hypertension) 12/01/2022 Hypertension IgA nephropathy IgA nephropathy determined by biopsy of kidney 10/26/2019 Missed vaccination due to patient refusal 10/08/2023 Has a number of non-scientific based beliefs which interfere with his understanding and acceptance of the medical benefit of vaccination. Nonrheumatic aortic valve stenosis 10/08/2023 Paroxysmal A-fib [place] ([facility]) 08/18/2023 Tobacco abuse 10/08/2023 Plan As above [...] MD Division of Hospitalist Medicine Inpatient Medical Services/[facility] Images from the original note were not included. [facility] Wound Care Progress Note Jun Snyder [...] diverticulosis, IgA nephropathy, severe that presented to [facility] ED from a facility [...] Date Acute renal failure (ARF) ([facility]) 10/19/2019 Anemia 12/30/2021 Calcification of abdominal aorta ([facility]) 10/08/202309/[address] abd Diverticulosis 10/08/2023 ESRD [place] hemodialysis [place] ([facility]) 10/26/2019 Hemodialysis [place]) HTN (hypertension) 12/01/2022 Hypertension IgA nephropathy IgA nephropathy determined by biopsy of kidney 10/26/2019 Missed vaccination due to patient refusal 10/08/2023 Has a number of non-scientific based beliefs which interfere with his understanding and acceptance of the medical benefit of vaccination. Nonrheumatic aortic valve stenosis 10/08/2023 Paroxysmal A-fib [place] ([facility]) 08/18/2023 Tobacco abuse 10/08/2023 PAST SURGICAL HISTORY Past Surgical History: Procedure Laterality Date APPENDECTOMY CARDIAC CATHETERIZATION N/A 10/09/2024 Performed by Bob Watson MD at [facility] Cardiac Cath/EP Lab CARDIAC CATHETERIZATION Bilateral 11/01/2024 Performed by Bob Watson MD at [facility] Cardiac Cath/EP Lab CARDIAC CATHETERIZATION N/A 11/01/2024 Performed by Bob Watson MD at [facility] Cardiac Cath/EP Lab COLONOSCOPY N/A 01/24/2025 Performed by Chadd Davis MD at [facility] ENDOSCOPY FISTULAGRAM (HISTORICAL) Left 09/15/2021 LEFT UPPER ARM HX AV FISTULA CREATION IR EMBOLIZATION 10/14/2024 IR EMBOLIZATION 10/14/2024 [facility] SPECIAL PROCEDURES IR FISTULAGRAM 08/07/2022 IR FISTULAGRAM [...] Medication Sig Dispense Refill epoetin rowan-epbx (Retacrit) 11514 UNIT/ML injection Inject 0.79 mL (7,900 Units) [...] apply Betadine and allow to dry, leave ADMITTING CLERK daily and PRN -Recommend PVRs for circulation check Nutritional support Wound Care to follow Recommend to follow up at [facility] Outpatient wound care center after hospital [...] Gill DO at 01/29/2025 4:37 PM EDT [facility] Anticoagulation Management Service ([facility]) Inpatient Warfarin Consult HPI: Jun Snyder is a 59 y.o. male admitted on 01/19/2025 for Complication of tracheostomy ([facility]) ([facility]) [J95.00] Past Medical History: Diagnosis Date Acute renal failure (ARF) ([facility]) 10/19/2019 Anemia 12/30/2021 Calcification of abdominal aorta ([facility]) 10/08/202309/[address] abd Diverticulosis 10/08/2023 ESRD on hemodialysis ([facility]) ([facility]) 10/26/2019 Hemod[place] ([facility]) HTN (hypertension) 12/01/2022 Hypertension IgA nephropathy IgA nephropathy determined by biopsy of kidney 10/26/2019 Missed vaccination due to patient refusal 10/08/2023 Has a number of non-scientific based beliefs which interfere with his understanding and acceptance of the medical benefit of vaccination. Nonrheumatic aortic valve stenosis 10/08/2023 Paroxysmal A-fib ([facility]) ([facility]) 08/18/2023 Tobacco abuse 10/08/2023 Patient is on warfarin for Afib, mechanical AVR and has a goal INR 2.0 - 3.0. Warfarin is currently managed by facility, has yet to be seen by [facility]. Pt's home dose of warfarin is not [...] dose accordingly 3. Will facilitate f/u at [facility] upon discharge Fatuma Odonnell RPh [facility] is available daily [phone] via Anywhere to Go. If no response on [employer] Chat then please page [phone]. [facility] Nephrology Progress Note Mr. Jun Snyder is [...] concerns. Wellington Nicole MD 01/28/2025 2:08 PM [facility] [address] [place] [address], [address] [place] [id number] Office: [phone] Hospitalist Progress Note 01/28/2025 Subjective: Admit Date: 01/19/2025 PCP: Leilani Han Room#: 1C-144/1C-144 A Brief Hospital Summary: Jun Snyder is a 59 y.o. male who who presented to [facility] 01/19 after inadvertent removal of his tracheostomy. He was transferred to [facility] ICU for surgical evaluation. On arrival he [...] HD successfully. hemodynamically stable. Transferred out to [facility] 01/27 Interval History: No overnight issues. [...] Date Acute renal failure (ARF) ([facility]) 10/19/2019 Anemia 12/30/2021 Calcification of abdominal aorta ([facility]) 10/08/202309/[address] abd Diverticulosis 10/08/2023 ESRD on hemodialysis ([facility]) ([facility]) 10/26/2019 Hemodialysis patient ([facility]) ([facility]) HTN (hypertension) 12/01/2022 Hypertension IgA nephropathy IgA [...] QT Interval 413 QTC Interval 515 P Vandiver 69 QRS Vandiver 93 T Wave Vandiver 87 CO Interval 148 Impression Sinus rhythm Left atrial [...] sodium chloride 0.9 % 100 mL IVPB (Add-[place]), 3,000 mg, IntraVENous, q24h, Radha Yee MD, [...] infusion (premix), 5-30 Units/kg/hr, IntraVENous, Continuous, Nils Boyle, DO, Last Rate: 7.7 mL/hr at 01/28/25 0737, 13 Units/kg/hr at 01/28/25 0737 ipratropium-albuterol (Duo-Neb) 0.5-2.5 mg/3 mL nebulizer solution 3 mL, 3 mL, Nebulization, PRN, Darryn Higgins MD Lidocaine 4 % patch 1 patch, 1 patch, Topical, Daily, Steve Lassiter MD, 1 patch at 01/28/25 0848 melatonin tablet 5 mg, 5 mg, Per G Tube, Nightly PRN, Steve aLssiter MD metoprolol tartrate (Lopressor) injection 5 mg, 5 mg, IntraVENous, q5 min PRN, Earlene Lozano APRN - SECURITY VEHICLE PATROL OFFICER, 5 mg at 01/25/25 1846 metoprolol tartrate (Lopressor) tablet 25 mg, 25 mg, Per G Tube, BID, Earlene Lozano APRN - SECURITY VEHICLE PATROL OFFICER, 25 mg at 01/28/25 0848 midodrine (Proamatine) [...] for sacral wound by ID PT OT ASSOCIATE DRAFTER follow, dysphagia diet Past Medical History: Diagnosis Date Acute renal failure (ARF) ([facility]) 10/19/2019 Anemia 12/30/2021 Calcification of abdominal aorta ([facility]) 10/08/202309/[address] abd Diverticulosis 10/08/2023 ESRD on hemodialysis ([facility]) ([facility]) 10/26/2019 [place]od[place] ([facility]) HTN (hypertension) 12/01/2022 Hypertension IgA nephropathy IgA nephropathy determined by biopsy of kidney 10/26/2019 Missed vaccination due to patient refusal 10/08/2023 Has a number of non-scientific based beliefs which interfere with his understanding and acceptance of the medical benefit of vaccination. Nonrheumatic aortic valve stenosis 10/08/2023 Paroxysmal A-fib [place] ([facility]) 08/18/2023 Tobacco abuse 10/08/2023 Plan As above [...] Division of Hospitalist Medicine Inpatient Medical Services/[facility] Anticoagulation Management Service ([facility]) Inpatient Warfarin Consult HPI: Jun Snyder is a 59 y.o. male admitted on 01/19/2025 for Complication of tracheostomy ([facility] ([facility]) [J95.00] Past Medical History: Diagnosis Date Acute renal failure (ARF) ([facility]) 10/19/2019 Anemia 12/30/2021 Calcification of abdominal aorta ([facility]) 10/08/202309/[address] abd Diverticulosis 10/08/2023 ESRD [place] hemodialysis [place] ([facility]) 10/26/2019 Hemodialysis [place] ([facility]) HTN (hypertension) 12/01/2022 Hypertension IgA nephropathy IgA nephropathy determined by biopsy of kidney 10/26/2019 Missed vaccination due to patient refusal 10/08/2023 Has a number of non-scientific based beliefs which interfere with his understanding and acceptance of the medical benefit of vaccination. Nonrheumatic aortic valve stenosis 10/08/2023 Paroxysmal A-fib [place] ([facility]) 08/18/2023 Tobacco abuse 10/08/2023 Patient is on [...] dose accordingly 3. Will facilitate f/u at [facility] upon discharge Vu Guido PharmD [facility] is available daily [phone] via Anywhere to Go. If no response on Anywhere to Go then please page [phone]. [facility] Anticoagulation Management Service ([facility]) Inpatient Warfarin Consult HPI: Jun Snyder is a 59 y.o. male admitted on 01/19/2025 for Complication of tracheostomy ([facility]) ([facility]) [J95.00] Past Medical History: Diagnosis Date Acute renal failure (ARF) ([facility]) 10/19/2019 Anemia 12/30/2021 Calcification of abdominal aorta ([facility]) 10/08/202309/[address] abd Diverticulosis 10/08/2023 ESRD on hemodialysis ([facility]) ([facility]) 10/26/2019 Hemodialysis patient ([facility]) ([facility]) HTN (hypertension) 12/01/2022 Hypertension IgA nephropathy IgA [...] facility, has yet to be seen by [facility]. Pt's home dose of warfarin is not [...] dose accordingly 3. Will facilitate f/u at [facility] upon discharge Vu Guido PharmD [facility] is available daily [phone] via Anywhere to Go. If no response on Epic Chat then please page [phone]. [facility] Respiratory Care Department Progress Note As [...] Respiratory in the care of this patient, [facility] Nephrology Progress Note Mr. Jun Snyder is [...] heparin, 5-30 Units/kg/hr, Last Rate: 12 Units/kg/hr (01/27/25 0612) sodium chloride, 20 mL/hr, Last Rate: 20 [...] last 7 days Lab Units 01/27/25 0006 01/26/258 01/25/25 0251 MAGNESIUM mg/dL 1.9 2.0 2.1 Results from last 7 days Lab Units 01/27/25 0006 01/26/25205201/26/2552 01/26/258 01/25/25 0953 01/25/25 0251 WBC AUTO 10*3/uL [...] status and labs. Please message me through Tk20 chat with any questions or concerns. Wellington Nicole MD 01/27/2025 7:11 AM [facility] [address] [place] [address], [address] [place] [address] Office: [phone] ICU Progress Note Name: Jun Snyder : 1965(59 y.o.) Date: 01/27/25 Team: MICU Attending: DARRYN HIGGINS Subjective: Hospital Summary: Jun Snyder is a 59 y.o. male who who presented to [facility] 01/19 after inadvertent removal of his tracheostomy. He was transferred to [facility] ICU for surgical evaluation. On arrival he [...] Normal [] Scar/Lesion/Mass Inspection of teeth/lips/gums Dentition: [x]Habematolel Teeth []Dentures Lips/Gums: [x]Intact []Lesion Present Mucosa: [x][place] []Moist []Dry Neck: External Appearance Overall Appearance: [...] Recent Labs 01/25/2525001/25/25 0953 01/26/2524701/26/25 0952 01/26/25205201/27/25 000 WBC 10.2 -- 8.7 -- -- 10.0 HGB 7.0* < > 6.7* 8.9* 9.0* 9.0* HCT 22.5* < > 21.0* 28.4* 27.9* 28.3* PLT 285 -- 265 -- -- 273 MCV 88.6 -- 87.1 -- -- 86.8 RDW 19.2* -- 19.3* -- -- 19.1* < > = values in this interval not displayed. ABGs: No results for input(s): "PHART", "HWN4QZO", "PO2ART", "NNY9CZE", "SO2ART", "Z7LIJEIV" in the last 72 hours. Lactic Acid: Recent Labs 01/24/25 0830 LACTATE 0.9 INR: Recent Labs 01/25/25 0618 01/26/2524701/27/25 0006 INR 1.7* 1.8* 1.9* Cardiac Injury [...] Problem: Complication of tracheostomy (CMS/HCC) ([facility]) Active Problems: Severe malnutrition (CMS/HCC) ([facility]) BRBPR (bright red blood per rectum) GIB [...] H/H and PT/INR q12 - Diet per ASSOCIATE DRAFTER recs Appreciate Recs: Pureed solids and Thin [...] and warfarin Disposition: Stable for Transfer to [facility] Cosigned by Darryn Higgins MD at [...] PT/OT - Remains stable for transfer to [facility]. Code Status: Full Code Disposition: ok for [facility] Time spent preparing to see the patient, obtaining/reviewing separately obtained history, completing an appropriate medical examination of the patient, ordering medications/tests/procedures, documenting clinical information on the EMR, and/or coordinating care is a subsequent visit: 35 minutes (Level II). Darryn Higgins MD Pulmonary and Critical Care Medicine Attending Pager #[phone] Images from the original note were not included. PHYSICAL THERAPY [facility] Name/MRN: Jair Snyder ([id number]) Date: 01/26/2025 Attempt Note Pt on iHD. Will re-attempt as able. Chantal Rossi PT [facility] Nephrology Progress Note Mr. Jun Snyder is [...] 5-30 Units/kg/hr, Last Rate: 7 Units/kg/hr (01/26/25 121) sodium chloride, 20 mL/hr, Last Rate: 20 [...] status and labs. Please message me through Tk20 chat with any questions or concerns. Wellington Nicole MD 01/26/2025 1:55 PM [facility] [address] [place] [address], [address] [place] [address] Office: [phone] Speech-Language Pathology Pt is a hold at this time, as he is receiving dialysis. Will re-attempt next date as schedule permits. Treva Mccallum MS. JESUS-ASSOCIATE DRAFTER ICU Transfer Checklist Hospital course: 59 y.o. male PMH trach s/p removal, peg, HTN, afib, ESRD on TTS HD, aortic stenosis s/p mechanical valve who presented to [facility] 01/19 after inadvertent removal of his tracheostomy. Transferred to [facility] ICU for surgical evaluation. On arrival he [...] convert to PO if able) None Anticipated [place] Medications (ICU initiated) or Dose Changes and Indication No Permanently Discontinued Home Medications and Reason for medication contraindication No Payne Catheter (please remove if able. Note: place DC order) No Central Line (please remove if able. Note: place DC order) No Transfer Discussed with: Dr. Russell [facility] If additional questions for ICU team within 24 hours of ICU transfer, page client solutions manager ICU resident for clarifications. [facility] Anticoagulation Management Service (SAILAJA) Inpatient Warfarin Consult HPI: Jun Snyder is a 59 y.o. male admitted on 01/19/2025 for Complication of tracheostomy ([facility]) ([facility]) [J95.00] Past Medical History: Diagnosis Date Acute renal failure (ARF) ([facility]) 10/19/2019 Anemia 12/30/2021 Calcification of abdominal aorta ([facility]) 10/08/202309/[address] abd Diverticulosis 10/08/2023 ESRD on hemodialysis ([facility]) ([facility]) 10/26/2019 Hemodialysis patient ([facility]) ([facility]) HTN (hypertension) 12/01/2022 Hypertension IgA nephropathy IgA nephropathy determined by biopsy of kidney 10/26/2019 Missed vaccination due to patient refusal 10/08/2023 Has a number of non-scientific based beliefs which interfere with his understanding and acceptance of the medical benefit of vaccination. Nonrheumatic aortic valve stenosis 10/08/2023 Paroxysmal A-fib ([facility]) ([facility]) 08/18/2023 Tobacco abuse 10/08/2023 Patient is on [...] dose accordingly 3. Will facilitate f/u at [facility] upon discharge Adalberto Deleon PharmD [facility] is available daily [phone] via [employer] Chat. If no response on [employer] Chat then please page [phone]. Images from the original note were not included. [facility] - Infectious Diseases Attending Progress Note [...] 01/26/2025 024 K 5.1 01/26/2025247 CL 100 01/26/2025 0248 CO2 20 (L) 01/26/2025 0248 BUN 19 01/26/2025 0248 CREATININE 3.37 (H) 01/26/2025 024 CREATININE 9.99 (H) 10/27/2019 0545 GLUCOSE 75 01/26/2025247 CALCIUM 9.0 01/26/2025 024 PROT 7.6 01/22/2025 0419 BILITOT 0.9 01/22/2025418 ALKPHOS 274 (H) 01/22/2025418 AST 51 (H) 01/22/2025418 ALT 44 (H) 01/22/2025418 PROCAL 4.10 (H) 12/31/2024 0108 PROCAL 4.25 [...] from the original note were not included. [facility] Wound Care Progress Note Jun Snyder [...] diverticulosis, IgA nephropathy, severe that presented to [facility] ED from a facility [...] CT abd Diverticulosis 10/08/2023 [place] hemodialysis [place] ([facility]) 10/26/2019 Hemodialysis patient ([facility] ([facility]) HTN (hypertension) 12/01/2022 Hypertension IgA nephropathy IgA nephropathy determined by biopsy of kidney 10/26/2019 Missed vaccination due to patient refusal 10/08/2023 Has a number of non-scientific based beliefs which interfere with his understanding and acceptance of the medical benefit of vaccination. Nonrheumatic aortic valve stenosis 10/08/2023 Paroxysmal A-fib ([facility] ([facility]) 08/18/2023 Tobacco abuse 10/08/2023 PAST SURGICAL HISTORY Past Surgical History: Procedure Laterality Date APPENDECTOMY CARDIAC CATHETERIZATION N/A 10/09/2024 Performed by Bob Watson MD at [facility] Cardiac Cath/EP Lab CARDIAC CATHETERIZATION Bilateral 11/01/2024 Performed by Bob Watson MD at [facility] Cardiac Cath/EP Lab CARDIAC CATHETERIZATION N/A 11/01/2024 Performed by Bob Watson MD at [facility] Cardiac Cath/EP Lab COLONOSCOPY N/A 01/24/2025 Performed by Chadd Davis MD at [facility] ENDOSCOPY FISTULAGRAM (HISTORICAL) Left 09/15/2021 LEFT UPPER ARM HX AV FISTULA CREATION IR EMBOLIZATION 10/14/2024 IR EMBOLIZATION 10/14/2024 [facility] SPECIAL PROCEDURES IR FISTULAGRAM 08/07/2022 IR FISTULAGRAM 08/07/2022 [facility] IR IMAGING TONSILLECTOMY (HISTORICAL) [...] Medication Sig Dispense Refill epoetin rowan-epbx (Retacrit) 02094 UNIT/ML injection Inject 0.79 mL (7,900 Units) [...] to follow Recommend to follow up at [facility] Outpatient wound care center after hospital [...] 59 y.o. male who who presented to [facility] 01/19 after inadvertent removal of his tracheostomy. He was transferred to [facility] ICU for surgical evaluation. On arrival he [...] Normal [] Scar/Lesion/Mass Inspection of teeth/lips/gums Dentition: [x]Habematolel Teeth []Dentures Lips/Gums: [x]Intact []Lesion Present Mucosa: [x][place] []Moist []Dry Neck: External Appearance Overall Appearance: [...] Labs 01/23/25 0626 01/23/25 2317 01/24/25 0429 01/24/25121601/25/25 0251 01/26/25 0248 GLUCOSE -- -- 74 [...] displayed. ABGs: No results for input(s): "PHART", "ZRA4VWT", "PO2ART", "REA2SQC", "SO2ART", "L2CAPVUE" in the last 72 hours. Lactic Acid: [...] Problem: Complication of tracheostomy (CMS/HCC) ([facility]) Active Problems: Severe malnutrition (CMS/HCC) ([facility]) BRBPR (bright red blood per rectum) GIB [...] peripheral blood smear pending - Diet per ASSOCIATE DRAFTER recs - continue q12 H/H and PT/INR [...] apply Betadine and allow to dry, leave ADMITTING CLERK daily and PRN - PVRs for circulation [...] on heparin and warfarin Disposition: Transfer to [facility] Cosigned by Darryn Higgins MD at [...] hemoglobin stable today. Stable for transfer to [facility]. Code Status: Full Code Disposition: Transfer to [facility] Time spent preparing to see the patient, obtaining/reviewing separately obtained history, completing an appropriate medical examination of the patient, ordering medications/tests/procedures, documenting clinical information on the EMR, and/or coordinating care is a subsequent visit: 35 minutes (Level II). Darryn Higgins MD Pulmonary and Critical Care Medicine Attending Pager #[phone] Images from the original note were not included. [facility] - Infectious Diseases Attending Progress Note [...] stenosis s/p mechanical valve who presented to [facility] 01/19 after inadvertent removal of his tracheostomy. Transferred to [facility] ICU for surgical evaluation. On arrival he was maintaining appropriate O2 saturations on room air and decision was made to leave the tracheostomy out. Transferred to [facility] but later developed rectal bleeding and [...] convert to PO if able) None Anticipated [place] Medications (ICU initiated) or Dose Changes and Indication No Permanently Discontinued Home Medications and Reason for medication contraindication No Payne Catheter (please remove if able. Note: place DC order) No Central Line (please remove if able. Note: place DC order) No Transfer Discussed with: Dr. Russell [facility] If additional questions for ICU team within 24 hours of ICU transfer, page client solutions manager ICU resident for clarifications. Images from the original note were not included. Speech-Language Pathology SPEECH LANGUAGE PATHOLOGY [facility] Modified Barium Swallow Study Patient Name: Jun Snyder Evaluation Date: 01/25/2025 Date of : 1965 Admission Date: 01/19/2025 2:13 AM Age: 59 y.o. Room[facility]Bed: [facility] A IMPRESSION: The patient presents with moderate [...] swallow). Pt would benefit from skilled acute ASSOCIATE DRAFTER services to ensure diet tolerance, train swallow [...] Date Acute renal failure (ARF) ([facility]) 10/19/2019 Anemia 12/30/2021 Calcification of abdominal aorta ([facility]) 10/08/202309/[address] abd Diverticulosis 10/08/2023 ESRD [place] hemodialysis [place] ([facility]) 10/26/2019 Hemodialysis patient [place] ([facility]) HTN (hypertension) 12/01/2022 Hypertension IgA nephropathy IgA nephropathy determined by biopsy of kidney 10/26/2019 Missed vaccination due to patient refusal 10/08/2023 Has a number of non-scientific based beliefs which interfere with his understanding and acceptance of the medical benefit of vaccination. Nonrheumatic aortic valve stenosis 10/08/2023 Paroxysmal A-fib ([facility]) ([facility]) 08/18/2023 Tobacco abuse 10/08/2023 Past Surgical History: Past Surgical History: Procedure Laterality Date APPENDECTOMY CARDIAC CATHETERIZATION N/A 10/09/2024 Performed by Bob Watson MD at [facility] Cardiac Cath/EP Lab CARDIAC CATHETERIZATION Bilateral 11/01/2024 Performed by Bob Watson MD at [facility] Cardiac Cath/EP Lab CARDIAC CATHETERIZATION N/A 11/01/2024 Performed by Bob Watson MD at [facility] Cardiac Cath/EP Lab COLONOSCOPY N/A 01/24/2025 Performed by Chadd Davis MD at [facility] ENDOSCOPY FISTULAGRAM (HISTORICAL) Left 09/15/2021 LEFT UPPER ARM HX AV FISTULA CREATION IR EMBOLIZATION 10/14/2024 IR EMBOLIZATION 10/14/2024 [facility] SPECIAL PROCEDURES IR FISTULAGRAM 08/07/2022 IR FISTULAGRAM 08/07/2022 [facility] IR IMAGING TONSILLECTOMY (HISTORICAL) Admission Diagnosis: Patient Active Problem List Diagnosis Date Noted Severe malnutrition ([facility]) ([facility]) 01/19/2025 Complication of tracheostomy ([facility]) ([facility]) 01/19/2025 FPC (current) use of antibiotics 01/12/2025 Acute respiratory failure with hypoxia ([facility]) [J96.01] 01/08/2025 Tracheostomy care ([facility]) [Z43.0] 01/08/2025 Pulmonary embolism ([facility]) 01/08/2025 Sacral osteomyelitis ([facility]) ([facility]) 01/03/2025 Pneumonia of both lungs due to methicillin susceptible Staphylococcus aureus (MSSA) ([facility]) 01/01/2025 Leukocytosis 12/30/2024 Decubitus ulcer of sacral region, unstageable ([facility]) 12/30/2024 Peritonitis due to fungus ([facility]) 11/30/2024 History of abdominal surgery 11/30/2024 Leg DVT (deep venous thromboembolism), acute, left ([facility]) 11/30/2024 Ischemic ulcer of toe of left foot, limited to breakdown of skin ([facility]) 11/30/2024 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[facility]) 11/30/2024 Pleural effusion 11/28/2024 Gastric ulceration 2024 Atrial flutter, unspecified type ([facility]) 10/03/2024 RSV (acute bronchiolitis due to respiratory syncytial virus) 10/03/2024 Diverticulosis 10/08/2023 Nonrheumatic aortic valve stenosis 10/08/2023 Calcification of abdominal aorta ([facility]) 10/08/2023 Missed vaccination due to patient refusal 10/08/2023 Tobacco abuse 10/08/2023 Alcohol use disorder in remission 10/08/2023 Paroxysmal A-fib ([facility]) ([facility]) 08/18/2023 HTN (hypertension) 12/01/2022 ESRD on hemodialysis ([facility]) ([facility]) 10/26/2019 IgA nephropathy determined by biopsy of [...] diverticulosis, IgA nephropathy, severe that presented to [facility] ED from a facility due to trach dislodgement. Per patient, was trying to disconnect his vent to transfer to another room but accidentally pulled out his tracheostomy. This event happened approximately 45 minutes before ED arrival. ED attempted to place tracheostomy tube back but were unsuccessful. Decision was made to transfer patient to [facility] ICU for further airway management and determine [...] Expected End: 02/02/25 Resolved: 01/25/25 Therapy Time ASSOCIATE DRAFTER Individual Minutes Time In: 1145 Time Out: 1205 Minutes: 20 Christina Nunez MA, CCC/ASSOCIATE DRAFTER [facility] Anticoagulation Management Service (SAILAJA) Inpatient Warfarin Consult HPI: Jun Snyder is a 59 y.o. male admitted on 01/19/2025 for Complication of tracheostomy ([facility]) ([facility]) [J95.00] Past Medical History: Diagnosis Date Acute renal failure (ARF) ([facility]) 10/19/2019 Anemia 12/30/2021 Calcification of abdominal aorta ([facility]) 10/08/202309/[address] abd Diverticulosis 10/08/2023 ESRD on hemodialysis ([facility]) ([facility]) 10/26/2019 Hemodialysis patient ([facility]) ([facility]) HTN (hypertension) 12/01/2022 Hypertension IgA nephropathy IgA nephropathy determined by biopsy of kidney 10/26/2019 Missed vaccination due to patient refusal 10/08/2023 Has a number of non-scientific based beliefs which interfere with his understanding and acceptance of the medical benefit of vaccination. Nonrheumatic aortic valve stenosis 10/08/2023 Paroxysmal A-fib ([facility]) ([facility]) 08/18/2023 Tobacco abuse 10/08/2023 Patient is on [...] dose accordingly 3. Will facilitate f/u at [facility] upon discharge Adalberto Deleon PharmD, PharmD [facility] is available daily [phone] via Anywhere [employer] Go. If no response on [employer] Chat then please page [phone]. [facility] Nephrology Progress Note Mr. Jun Snyder is [...] concerns. Wellington Nicole MD 01/25/2025 11:44 AM [facility] [address] [place] [address], [address] [place] [id number] Office: [phone] Images from the original note were not [...] time - planning to eventually discharge to [facility] - will forward chart to Palliative RN [...] AV replacement Supratherapeutic INR - [facility] [employer] valve in 09/2024 - coumadin held due to bleeding and supratherapeutic levels Chronic respiratory failure s/p tracheostomy Tracheostomy dislodgement - has been saturating well without trach on RA so has not been replaced Palliative Care Encounter - Code Status: Full Code - Jun Snyder has been seen in consultation by [facility] during their admission to [facility]. They currently have no uncontrolled symptoms [...] Palliative Care IDT members involved: Palliative Care Wire Drawing Die Maker Discussed the plan of care with the [...] to have bile peritonitis" 11/28/24: transferred to [facility] He ended up developing sacral ulcer and osteomyelitis at [facility] He then ended up dislodging his tracheostomy, and was brought to [facility] ED for further care. Palliative care consulted [...] much better. Planning to eventually discharge to [facility]. Discussed trying to get palliative care to [...] status: SNF Work history: unknown status: unknown Tenriism annette: Non-Mormon ROS: See palliative care ROS/ESAS below; All other systems were reviewed and are negative. [place] Symptom Assessment Score [place] Score Pain Score (if non-verbal, add .FLACC [...] 59 y.o. male who who presented to [facility] 01/19 after inadvertent removal of his tracheostomy. He was transferred to [facility] ICU for surgical evaluation. On arrival he [...] Normal [] Scar/Lesion/Mass Inspection of teeth/lips/gums Dentition: [x]Habematolel Teeth []Dentures Lips/Gums: [x]Intact []Lesion Present Mucosa: [x][place] []Moist []Dry Neck: External Appearance Overall Appearance: [...] 19.2* ABGs: No results for input(s): "PHART", "AWN0YUP", "PO2ART", "SKZ3KYS", "SO2ART", "B2AUYLFL" in the last 72 hours. Lactic Acid: [...] Problem: Complication of tracheostomy (CMS/HCC) ([facility]) Active Problems: Severe malnutrition (CMS/HCC) (HCC) BRBPR [...] peripheral blood smear pending - Diet per ASSOCIATE DRAFTER recs - continue q12 H/H and PT/INR [...] apply Betadine and allow to dry, leave ADMITTING CLERK daily and PRN - PVRs for circulation [...] Prophylaxis: SCDs warfarin held Disposition: Transfer to [facility] Cosigned by Darryn Higgins MD at [...] and appropriate. If stable can transfer to [facility]. Code Status: Full Code Disposition: Transfer to [facility] Time spent preparing to see the patient, obtaining/reviewing separately obtained history, completing an appropriate medical examination of the patient, ordering medications/tests/procedures, documenting clinical information on the EMR, and/or coordinating care is a subsequent visit: 35 minutes (Level II). Darryn Higgins MD Pulmonary and Critical Care Medicine Attending Pager #[phone] Images from the original note were not included. [facility] - Infectious Diseases Advanced Practice Provider [...] pcr- MSSA 12/11- sputum cx- MSSA, resp lia Previous (ACH) 11/28- L pleural fluid- negative [...] be of moderate complexity. Mikala MORAN PA-C [facility] Infectious Disease [facility] Nephrology Progress Note Mr. Jun Snyder is [...] status and labs. Please message me through [employer] chat with any questions or concerns. Wellington Nicole MD 01/24/2025 3:17 PM [facility] [address] [place] [address], [address] [place] [address] Office: [phone] Nutrition Assessment Type and Reason for Visit: [...] receiving and tolerating while at [facility]. Noted ASSOCIATE DRAFTER is following- trach remains out and pt stable without it. ASSOCIATE DRAFTER most recently recommended MBSS completion- will follow and monitor ASSOCIATE DRAFTER recs and need for adjustment in EN [...] the ICU after he initially presented to [facility] ED on 01/19/25 due to inadvertent removal of his tracheostomy, pt was transferred to [facility] ICU for surgical evaluation, on arrival he [...] and also left toes 1-4 arterial ulcers, ASSOCIATE DRAFTER remains following- yesterday noted recs to continue [...] able to be re-initiated as well as ASSOCIATE DRAFTER recs for possible diet advancement s/p MBSS. [...] weight was obtained) Usual Body Weight: (per [facility] review --> 10/08/23: 207#, 11/12: 208#, 08/28: 206#, 10/04/24: 192#, 10/15: 207# bedscale, 10/31: 200#, 11/28: 161#, 01/18: 142#) [place] Body Weight (lbs) (Calculated): 166 lbs [place] Body Weight (Kg) (Calculated): 75 kg % [place] Body Weight (Calculated): 78.2 % BMI (kg/m2) [...] determine [address] Contact: available via [facility] chat or *[phone] [facility] Anticoagulation Management Service (SAILAJA) Inpatient Warfarin Consult HPI: Jun Snyder is a 59 y.o. male admitted on 01/19/2025 for Complication of tracheostomy ([facility]) ([facility]) [J95.00] Past Medical History: Diagnosis Date Acute renal failure (ARF) ([facility]) 10/19/2019 Anemia 12/30/2021 Calcification of abdominal aorta ([facility]) 10/08/202309/[address] abd Diverticulosis 10/08/2023 ESRD on hemodialysis (CMS/HCC) ([facility]) 10/26/2019 Hemodialysis patient (CMS/HCC) ([facility]) HTN (hypertension) 12/01/2022 Hypertension IgA nephropathy IgA nephropathy determined by biopsy of kidney 10/26/2019 Missed vaccination due to patient refusal 10/08/2023 Has a number of non-scientific based beliefs which interfere with his understanding and acceptance of the medical benefit of vaccination. Nonrheumatic aortic valve stenosis 10/08/2023 Paroxysmal A-fib ([facility]) ([facility]) 08/18/2023 Tobacco abuse 10/08/2023 Patient is on warfarin for Afib, mechanical AVR and has a goal INR 2.0 - 3.0. Warfarin is currently managed by facility, has yet to be seen by [facility]. Pt's home dose of warfarin is not [...] dose accordingly 3. Will facilitate f/u at [facility] upon discharge Fatuma Odonnell RPh, PharmD [facility] is available daily [phone] via [employer] Chat. If no response on [employer] Chat then please page [phone]. ICU Progress Note Name: Jun Snyder : 1965(59 y.o.) Date: 01/24/25 Team: MICU Attending: Dr. Higgins Subjective: Hospital Summary: Mr Snyder is a 59 year old male who presented to [facility] 01/19 after inadvertent removal of his tracheostomy. He was transferred to [facility] ICU for surgical evaluation. On arrival he [...] Weight 58.9 kg (129 lb 13.6 oz) (01/19/2557) BMI Body mass index is 18.63 kg/m [...] Normal [] Scar/Lesion/Mass Inspection of teeth/lips/gums Dentition: []Habematolel Teeth []Dentures Lips/Gums: []Intact []Lesion Present Mucosa: [x][place] []Moist [x]Dry Neck: External Appearance Overall Appearance: [...] 19.4* ABGs: No results for input(s): "PHART", "YTB0BNO", "PO2ART", "AID2AFK", "SO2ART", "P6CSETVK" in the last 72 hours. Lactic Acid: [...] post scope if stable can transfer to [facility] tomorrow Code Status: Full Code Disposition: Remain in ICU Time spent preparing to see the patient, obtaining/reviewing separately obtained history, completing an appropriate medical examination of the patient, ordering medications/tests/procedures, documenting clinical information on the EMR, and/or coordinating care is a subsequent visit: 35 minutes (Level II). Darryn Higgins MD Pulmonary and Critical Care Medicine Attending Pager #[phone] [facility]phrology Progress Note Mr. Jun Snyder is [...] Nicole MD 01/23/2025 5:03 PM [facility] [address], [address] [place] [address] Office: [phone] Images from the original note were not included. Speech-Language Pathology SPEECH LANGUAGE PATHOLOGY [facility] Dysphagia Treatment Note Patient Name: Jun Snyder Evaluation Date: 01/23/2025 Date of : 1965 Admission Date: 01/19/2025 2:13 AM Age: 59 y.o. Room/Bed: [facility] A Subjective Patient alert and cooperative. Seen [...] Start: 01/19/25 Expected End: 02/02/25 Therapy Time ASSOCIATE DRAFTER Individual Minutes Time In: 1315 Time Out: 1330 Minutes: 15 FRANKLIN Singh Images from the original note were not included. [facility] - Infectious Diseases Advanced Practice Provider [...] considered to be of moderate complexity. Mikala MORAN, [facility] Infectious Disease Images from the original note [...] Results from last 7 days Lab Units 01/23/2542901/22/25 1538 01/22/25 1043 INR 2.0* 3.1* 5.5* [...] Active Problem List Diagnosis Anemia Paroxysmal A-fib ([facility]) ([facility]) HTN (hypertension) ESRD on hemodialysis ([facility]) ([facility]) IgA nephropathy determined by biopsy of kidney Diverticulosis Nonrheumatic aortic valve stenosis Calcification of abdominal aorta ([facility]) Missed vaccination due to patient refusal Tobacco abuse Alcohol use disorder in remission Atrial flutter, unspecified type ([facility]) RSV (acute bronchiolitis due to respiratory syncytial virus) Aortic stenosis Upper GI bleed S/P AVR Acute hypoxic respiratory failure ([facility]) Acute encephalopathy Pneumoperitoneum Gastric ulceration Severe malnutrition ([facility]) ([facility]) Pleural effusion Peritonitis due to fungus ([facility]) History of abdominal surgery Leg DVT (deep venous thromboembolism), acute, left ([facility]) Ischemic ulcer of toe of left foot, limited to breakdown of skin ([facility]) Tracheostomy dependence ([facility]) Leukocytosis Decubitus ulcer of sacral region, unstageable (HCC) Pneumonia of both lungs due to methicillin susceptible Staphylococcus aureus (MSSA) ([facility]) Sacral osteomyelitis (CMS/HCC) (HCC) Acute respiratory failure with hypoxia ([facility]) [J96.01] Tracheostomy care ([facility]) [Z43.0] Pulmonary embolism ([facility]) FPC (current) use of antibiotics Complication of tracheostomy (CMS/HCC) ([facility]) BRBPR (bright red blood per rectum) I have personally performed a face to face diagnostic evaluation on this patient. I have reviewed and agree with the care plan as documented above by my STUDENT SERVICES COUNSELOR/PA-C. I personally discussed the review of systems [...] []SW/TCC []Other Total Care Time (combined between STUDENT SERVICES COUNSELOR/PA-C and myself) throughout the day today was >= 35 minutes (including chart/data review/analysis, care coordination, and [id number] encounter), and was spent discussing/counseling the patient/family regarding the care plan for this patient. I examined the patient independently. I reviewed relevant data myself and may have also done so in the context of team rounds. A full chart review was performed. Ivett Buckley MD Division of Trauma Department of Surgery [facility] Images from the original note were [...] sodium chloride 0.9 % 100 mL IVPB (Add-[place]), 3,000 mg, IntraVENous, q12h, Steve Lassiter MD, [...] 20 mEq, 20 mEq, IntraVENous, Once, Nils Moncadah, DO prochlorperazine (Compazine) injection 5 mg, 5 mg, IntraVENous, q6h PRN, Sangeeta Reyes DO sodium chloride 0.9 % infusion, 250 mL/hr, IntraVENous, PRN, Nils Moncadah, DO OBJECTIVE VITALS: BP 127/71 Pulse 92 [...] +scattered ecchymoses Neuro: nonfocal Labs/Studies reviewed in [facility] ASSESSMENT/PLAN: GIB - Hematochezia Chronic Anticoagulation -h/o [...] y.o.) Date: 01/23/25 Team: MICU Attending: Dr. iHggins Subjective: Hospital Summary: Mr Snyder is a 59 year old male who presented to [facility] 01/19 after inadvertent removal of his tracheostomy. He was transferred to [facility] ICU for surgical evaluation. On arrival he [...] Normal [] Scar/Lesion/Mass Inspection of teeth/lips/gums Dentition: []Habematolel Teeth []Dentures Lips/Gums: []Intact []Lesion Present Mucosa: [][place] []Moist []Dry Neck: External Appearance Overall Appearance: [...] 18.5* ABGs: No results for input(s): "PHART", "PCY6ADV", "PO2ART", "VHL7ZWM", "SO2ART", "R0KBEWFF" in the last 72 hours. Lactic Acid: [...] Problem: Complication of tracheostomy (CMS/HCC) ([facility]) Active Problems: Severe malnutrition (CMS/HCC) ([facility]) GI Bleed, worsened by Warfarin Non-bleeding duodenal [...] setting of GI bleed Disposition: Transfer to [facility] Cosigned by Darryn Higgins MD at [...] Pulmonary and Critical Care Medicine Attending Pager #[phone] [facility] Respiratory Care Department Progress Note As [...] Respiratory in the care of this patient, [facility] [place] [facility] Progress Note Mr. Jun Snyder is [...] status and labs. Please message me through [email or web address] chat with any questions or concerns. Wellington Nicole MD 01/22/2025 3:30 PM [facility] [address], [address] [place] [address] Office: [phone] Images from the original note were not included. [facility] - Infectious Diseases Advanced Practice Provider Progress Note Subjective: Following patient for sacral OM. Notes reviewed. Patialonzon had EGD 01/21 revealing non-bleeding duodenal ulcer. [...] be of moderate complexity. Mikala MORAN PA-C [facility] Infectious Disease Speech-Language Pathology Spoke with the RN. Patient remains decanulated and doing well on Room Air. Patient is currently NPO for GI. Will defer dysphagia plan of care until patient is cleared to resume TF or a PO diet. Christina Limon MS, CCC/ASSOCIATE DRAFTER Images from the original note were not [...] sodium chloride 0.9 % 100 mL IVPB (Add-[place]), 3,000 mg, IntraVENous, q12h, Steve Lassiter MD, [...] Steve Lassiter MD, 5 mg at 01/21/25 7488 prochlorperazine (Compazine) injection 5 mg, 5 mg, [...] -- 44* PT/INR: Recent Labs 01/21/25 1452 01/21/252347 INR 7.9* 8.1* IR Embolization 10/14/2024 IMPRESSION: [...] 10/12/24, Coumadin, last dose suspected 01/18/25 at [facility] Stage V sacral wound Necrotic left toes [...] no c/c/e Neuro: nonfocal Labs/Studies reviewed in [facility] ASSESSMENT/PLAN: GIB Chronic Anticoagulation -h/o Coumadin H/O [...] Results from last 7 days Lab Units 04/41801/21/25 0243 01/20/25 0514 SODIUM mmol/L 132* 135* [...] primary - will be discussed with Dr CranDENIA Morales 01/22/25 7:33 AM Cosigned by Ivett Buckley MD at 01/23/2025 10:55 AM EDT Associated attestation - Ivett Buckley MD - 01/23/2025 10:55 AM EDT ATTENDING ADDENDUM Patient Active Problem List Diagnosis Anemia Paroxysmal A-fib (CMS/HCC) ([facility]) HTN (hypertension) ESRD on hemodialysis ([facility]/HCC) ([facility]) IgA nephropathy determined by biopsy of kidney Diverticulosis Nonrheumatic aortic valve stenosis Calcification of abdominal aorta (HCC) Missed vaccination due to patient refusal Tobacco abuse Alcohol use disorder in remission Atrial flutter, unspecified type (HCC) RSV (acute bronchiolitis due to respiratory syncytial virus) Aortic stenosis Upper GI bleed S/P AVR Acute hypoxic respiratory failure ([facility]) Acute encephalopathy Pneumoperitoneum Gastric ulceration Severe malnutrition (CMS/HCC) (HCC) Pleural effusion Peritonitis due to fungus (HCC) History of abdominal surgery Leg DVT (deep venous thromboembolism), acute, left (HCC) Ischemic ulcer of toe of left foot, 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) Tracheostomy dependence ([facility]) Leukocytosis Decubitus ulcer of sacral region, unstageable (HCC) Pneumonia of both lungs due to methicillin susceptible Staphylococcus aureus (MSSA) ([facility]) Sacral osteomyelitis (CMS/HCC) ([facility]) Acute respiratory failure with hypoxia ([facility]) [J96.01] Tracheostomy care ([facility]) [Z43.0] Pulmonary embolism ([facility]) FPC (current) use of antibiotics Complication of tracheostomy (CMS/HCC) ([facility]) I personally supervised the resident in the [...] MD Division of Trauma Department of Surgery [facility] ICU Progress Note Name: Jun Snyder : 1965(59 y.o.) Date: 01/22/25 Team: MICU Attending: Dr. Higgins Subjective: Hospital Summary: Mr Snyder is a 59 year old male who presented to [facility] 01/19 after inadvertent removal of his tracheostomy. He was transferred to [facility] ICU for surgical evaluation. On arrival he [...] index is 18.63 kg/m . I/O: 01/21 07 - 01/22 0659 In: 1036 [I.V.:726] Out: [...] Normal [] Scar/Lesion/Mass Inspection of teeth/lips/gums Dentition: []Habematolel Teeth []Dentures Lips/Gums: []Intact []Lesion Present Mucosa: [x][place] []Moist [x]Dry Neck: External Appearance Overall Appearance: [...] 18.6* ABGs: No results for input(s): "PHART", "NHE8OTB", "PO2ART", "BFT5BOU", "SO2ART", "Q2PNYNZY" in the last 72 hours. Lactic Acid: No results for input(s): "LACTATE" in the last 72 hours. INR: Recent Labs 01/19/25 0652 01/21/25 1452 01/21/258 INR 2.7* 7.9* 8.1* Cardiac Injury Profile: [...] Pulmonary and Critical Care Medicine Attending Pager #[phone] [facility] Progress Note SUBJECTIVE: Jun Snyder [...] sodium chloride 0.9 % 100 mL IVPB (Add-[place]), 3,000 mg, IntraVENous, q12h, Steve Lassiter MD, [...] Problem List Diagnosis Date Noted Severe malnutrition ([facility]) ([facility]) 01/19/2025 Complication of tracheostomy ([facility]) ([facility]) 01/19/2025 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 (current) use of antibiotics 01/12/2025 Acute respiratory failure with hypoxia ([facility]) [J96.01] 01/08/2025 Tracheostomy care ([facility]) [Z43.0] 01/08/2025 Pulmonary embolism ([facility]) 01/08/2025 Sacral osteomyelitis ([facility]) ([facility]) 01/03/2025 Pneumonia of both lungs due to methicillin susceptible Staphylococcus aureus (MSSA) ([facility]) 01/01/2025 Leukocytosis 12/30/2024 Decubitus ulcer of sacral region, unstageable ([facility]) 12/30/2024 Peritonitis due to fungus ([facility]) 11/30/2024 History of abdominal surgery 11/30/2024 Leg DVT (deep venous thromboembolism), acute, left ([facility]) 11/30/2024 Ischemic ulcer of toe of left foot, limited to breakdown of skin ([facility]) 11/30/2024 Tracheostomy dependence ([facility]) 11/30/2024 Pleural effusion 11/28/2024 Gastric ulceration 2024 Atrial flutter, unspecified type ([facility]) 10/03/2024 RSV (acute bronchiolitis due to respiratory syncytial virus) 10/03/2024 Diverticulosis 10/08/2023 Nonrheumatic aortic valve stenosis 10/08/2023 Calcification of abdominal aorta ([facility]) 10/08/2023 Missed vaccination due to patient refusal 10/08/2023 Tobacco abuse 10/08/2023 Alcohol use disorder in remission 10/08/2023 Paroxysmal A-fib ([facility]) ([facility]) 08/18/2023 HTN (hypertension) 12/01/2022 ESRD on hemodialysis ([facility]) ([facility]) 10/26/2019 IgA nephropathy determined by biopsy of kidney 10/26/2019 Aortic stenosis 10/03/2024 Upper GI bleed 10/03/2024 S/P AVR 10/03/2024 Acute hypoxic respiratory failure ([facility]) 10/03/2024 Acute encephalopathy 10/03/2024 Pneumoperitoneum 10/03/2024 Anemia 12/30/2021 ASSESSMENT/PLAN: ESRD. HD MWF schedule Anemia. PRBC if Hb less than 7 GI bleed. Gastroenterology following Cindy Patel MD 01/21/2025 4:54 PM Family Communication Number Called: [phone] Name of Designated Family Keymodule Assembly Supervisor: Omar son I spoke with the individual listed above Family Keymodule Assembly Supervisor Updated on the Following: - Updated Omar [...] sodium chloride 0.9 % 100 mL IVPB (Add-[place]), 3,000 mg, IntraVENous, q12h, Steve Lassiter MD, [...] 4.3 CL 95* 98 96* CO2 25 24 BUN 80* 91* 46* CREATININE 3.50* [...] 10/12/24, Coumadin, last dose suspected 01/18/25 at [facility] Acute Right occipital ICH- 10/22/24 ESRD on [...] proceed with planned procedure. Parth VASQUEZ Gastroenterology [facility] Progress Note SUBJECTIVE: Jun Snyder [...] sodium chloride 0.9 % 100 mL IVPB (Add-[place]), 3,000 mg, IntraVENous, q12h, Steve Lassiter MD, [...] Problem List Diagnosis Date Noted Severe malnutrition ([facility]) ([facility]) 01/19/2025 Complication of tracheostomy ([facility]) ([facility]) 01/19/2025 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 (current) use of antibiotics 01/12/2025 Acute respiratory failure with hypoxia ([facility]) [J96.01] 01/08/2025 Tracheostomy care ([facility]) [Z43.0] 01/08/2025 Pulmonary embolism ([facility]) 01/08/2025 Sacral osteomyelitis ([facility]) ([facility]) 01/03/2025 Pneumonia of both lungs due to methicillin susceptible Staphylococcus aureus (MSSA) ([facility]) 01/01/2025 Leukocytosis 12/30/2024 Decubitus ulcer of sacral region, unstageable ([facility]) 12/30/2024 Peritonitis due to fungus ([facility]) 11/30/2024 History of abdominal surgery 11/30/2024 Leg DVT (deep venous thromboembolism), acute, left ([facility]) 11/30/2024 Ischemic ulcer of toe of left foot, limited to breakdown of skin ([facility]) 11/30/2024 Tracheostomy dependence ([facility]) 11/30/2024 Pleural effusion 11/28/2024 Gastric ulceration 2024 Atrial flutter, unspecified type ([facility]) 10/03/2024 RSV (acute bronchiolitis due to respiratory syncytial virus) 10/03/2024 Diverticulosis 10/08/2023 Nonrheumatic aortic valve stenosis 10/08/2023 Calcification of abdominal aorta ([facility]) 10/08/2023 Missed vaccination due to patient refusal 10/08/2023 Tobacco abuse 10/08/2023 Alcohol use disorder in remission 10/08/2023 Paroxysmal A-fib ([facility]) ([facility]) 08/18/2023 HTN (hypertension) 12/01/2022 ESRD on hemodialysis ([facility]) ([facility]) 10/26/2019 IgA nephropathy determined by biopsy of kidney 10/26/2019 Aortic stenosis 10/03/2024 Upper GI bleed 10/03/2024 S/P AVR 10/03/2024 Acute hypoxic respiratory failure ([facility]) 10/03/2024 Acute encephalopathy 10/03/2024 Pneumoperitoneum 10/03/2024 Anemia [...] were not included. OCCUPATIONAL THERAPY [facility] Initial Evaluation Name/MRN: Jair Snyder ([id number]) Evaluation Date: 01/20/2025 Date of : 1965 Admission Date: 01/19/2025 2:13 AM Age: 59 y.o. Room[facility]: [facility] A Discharge Recommendation: Jail Facility Other: DME [...] planned discharge. Admitting Diagnosis: Complication of tracheostomy ([facility]) ([facility]) Performance Deficits /Impairments: Decreased Functional Mobility, Decreased [...] Date Acute renal failure (ARF) ([facility]) 10/19/2019 Anemia 12/30/2021 Calcification of abdominal aorta ([facility]) 10/08/202309/[address] abd Diverticulosis 10/08/2023 ESRD on hemodialysis ([facility]) ([facility]) 10/26/2019 [place] ([facility]) HTN (hypertension) 12/01/2022 Hypertension IgA nephropathy IgA nephropathy determined by biopsy of kidney 10/26/2019 Missed vaccination due to patient refusal 10/08/2023 Has a number of non-scientific based beliefs which interfere with his understanding and acceptance of the medical benefit of vaccination. Nonrheumatic aortic valve stenosis 10/08/2023 Paroxysmal A-fib ([facility]) ([facility]) 08/18/2023 Tobacco abuse 10/08/2023 Past Surgical History: Past Surgical History: Procedure Laterality Date APPENDECTOMY CARDIAC CATHETERIZATION N/A 10/09/2024 Performed by Bob Watson MD at [facility] Cardiac Cath/EP Lab CARDIAC CATHETERIZATION Bilateral 11/01/2024 Performed by Bob Watson MD at [facility] Cardiac Cath/EP Lab CARDIAC CATHETERIZATION N/A 11/01/2024 Performed by Bob Watson MD at [facility] Cardiac Cath/EP Lab FISTULAGRAM (HISTORICAL) Left 09/15/2021 LEFT UPPER ARM HX AV FISTULA CREATION IR EMBOLIZATION 10/14/2024 IR EMBOLIZATION 10/14/2024 [facility] SPECIAL PROCEDURES IR FISTULAGRAM 08/07/2022 IR FISTULAGRAM 08/07/2022 [facility] IR IMAGING TONSILLECTOMY (HISTORICAL) Admission Diagnosis: Patient Active Problem List Diagnosis Date Noted Severe malnutrition ([facility]) ([facility]) 01/19/2025 Complication of tracheostomy ([facility] ([facility]) 01/19/2025 FPC (current) use of antibiotics 01/12/2025 Acute respiratory failure with hypoxia ([facility]) [J96.01] 01/08/2025 Tracheostomy care ([facility]) [Z43.0] 01/08/2025 Pulmonary embolism ([facility]) 01/08/2025 Sacral osteomyelitis ([facility] ([facility]) 01/03/2025 Pneumonia of both lungs due to methicillin susceptible Staphylococcus aureus (MSSA) ([facility]) 01/01/2025 Leukocytosis 12/30/2024 Decubitus ulcer of sacral region, unstageable ([facility]) 12/30/2024 Peritonitis due to fungus ([facility]) 11/30/2024 History of abdominal surgery 11/30/2024 Leg DVT (deep venous thromboembolism), acute, left ([facility]) 11/30/2024 Ischemic ulcer of toe of left foot, limited to breakdown of skin ([facility]) 11/30/2024 Tracheostomy dependence ([facility]) 11/30/2024 Pleural effusion 11/28/2024 Gastric ulceration 2024 Atrial flutter, unspecified type ([facility]) 10/03/2024 RSV (acute bronchiolitis due to respiratory syncytial virus) 10/03/2024 Diverticulosis 10/08/2023 Nonrheumatic aortic valve stenosis 10/08/2023 Calcification of abdominal aorta ([facility]) 10/08/2023 Missed vaccination due to patient refusal 10/08/2023 Tobacco abuse 10/08/2023 Alcohol use disorder in remission 10/08/2023 Paroxysmal A-fib [place] ([facility]) 08/18/2023 HTN (hypertension) 12/01/2022 ESRD [place] hemodialysis [place] ([facility]) 10/26/2019 IgA nephropathy determined by biopsy of kidney 10/26/2019 Aortic stenosis 10/03/2024 Upper GI bleed 10/03/2024 S/P AVR 10/03/2024 Acute hypoxic respiratory failure ([facility]) 10/03/2024 Acute encephalopathy 10/03/2024 Pneumoperitoneum 10/03/2024 Anemia [...] events, decreased short term memory, and decreased usp memory - Safety judgement: decreased awareness of [...] Poor historian. Per pt he came from [facility] Pt unable to recall living situation prior to [facility], states "I've been in and out of [...] of Care supervision is transferred to a [facility] Therapy Services Occupational Therapist. Goals and/or treatment plan was established in collaboration with patient/family/other representatives. Hospitalist Progress Note 01/20/2025 Subjective: Admit Date: 01/19/2025 PCP: Leilani Han Room#: [id number] A BRIEF HOSPITAL COURSE: Patient is a 59 yo male with a PMH of Trach and peg, HTN, paroxysmal a-fib, R occipital ICH, Tobacco abuse, ARF - dialysis (TTS; LUE AVF), diverticulosis, IgA nephropathy, severe that presented to [facility] ED from a facility due to trach dislodgement. Per patient, was trying to disconnect his vent to transfer to another room but accidentally pulled out his tracheostomy. This event happened approximately 45 minutes before ED arrival. ED attempted to place tracheostomy tube back but were unsuccessful. Decision was made to transfer patient to [facility] ICU for further airway management and determine if replacement tracheostomy is needed. Was observed at [facility] ICU initially and transferred to [facility] on 01/20. Noted removal of trach. [...] Date Acute renal failure (ARF) ([facility]) 10/19/2019 Anemia 12/30/2021 Calcification of abdominal aorta ([facility]) 10/08/202309/[address] abd Diverticulosis 10/08/2023 ESRD [place] hemodialysis [place] ([facility]) 10/26/2019 Hemod[place] ([facility]) HTN (hypertension) 12/01/2022 Hypertension IgA nephropathy IgA nephropathy determined by biopsy of kidney 10/26/2019 Missed vaccination due to patient refusal 10/08/2023 Has a number of non-scientific based beliefs which interfere with his understanding and acceptance of the medical benefit of vaccination. Nonrheumatic aortic valve stenosis 10/08/2023 Paroxysmal A-fib ([facility]) ([facility]) 08/18/2023 Tobacco abuse 10/08/2023 LABS: CBC: Recent [...] and limit nighttime disturbances - DVT prophylaxis: [facility] 02-01-2025 Hospital course Narrative Discharge [...] 59 y.o. male who who presented to [facility] 01/19 after inadvertent removal of his tracheostomy. He was transferred to [facility] ICU for surgical evaluation. On arrival he [...] HD successfully. hemodynamically stable. Transferred out to [facility] 01/27 ID following for sacral osteomyelitis, s/p wound debridement to bone on 01/02, cultures grew E faecalis and Clostridium, continue with renally dosed ampicillin sulbactam for 6 weeks course through 02/13/2025, needs tunneled line, status post IR CVC tunneled line on 01/29 Nephrology following, on dialysis ASSOCIATE DRAFTER following PT/OT recommends SNF Patient will be [...] Date Acute renal failure (ARF) ([facility]) 10/19/2019 Anemia 12/30/2021 Calcification of abdominal aorta ([facility]) 10/08/202309/[address] abd Diverticulosis 10/08/2023 ESRD [place] hemodialysis [place] ([facility]) 10/26/2019 [place]) HTN (hypertension) 12/01/2022 Hypertension IgA nephropathy IgA nephropathy determined by biopsy of kidney 10/26/2019 Missed vaccination due to patient refusal 10/08/2023 Has a number of non-scientific based beliefs which interfere with his understanding and acceptance of the medical benefit of vaccination. Nonrheumatic aortic valve stenosis 10/08/2023 Paroxysmal A-fib ([facility]) ([facility]) 08/18/2023 Tobacco abuse 10/08/2023 Adult diet Dysphagia [...] 20 mL/hr, Last Rate: 20 mL/hr (01/30/25 9768) Assessment Data: (CAT1) Reviewed 2 notes from [...] by ID -S/p tunneled central line placement -ASSOCIATE DRAFTER follow, dysphagia diet -PT OT DC recommend SNF SIGNIFICANT DIAGNOSTIC STUDIES: IR cvc tunneled central line placement [[id number]] Collected: 01/30/251436 Order Status: Completed Updated: 01/30/251438 [...] FL modified barium with video and speech [[id number]] Collected: 01/25/25 1328 Order Status: Completed Updated: 01/25/25 1343 Narrative: [facility] 1965 [id number] Exam Date/Time: 01/25/2025 11:42 Procedure: FL MODIFIED [...] 3:12 PM EDT XR chest 1 view [[id number]] Collected: 01/24/25157 Order Status: Completed Updated: 01/24/25199 [...] pelvis angiogram w and/or wo IV contrast [[id number]] Collected: 01/20/251848 Order Status: Completed Updated: 01/20/251902 Narrative: [facility]UN SNY[facility] 1965 [id number] Exam Date/Time: 01/20/2025 17:02 Procedure: CT ABDOMEN [...] 7:02 PM EDT XR chest 1 view [[id number]] Collected: 01/19/25614 Order Status: Completed Updated: 01/19/25616 [...] 6:16 AM EDT XR chest 1 view [[id number]] Collected: 01/18/25 1242 Order Status: Completed Updated: [...] days. CONTINUE taking these medications epoetin rowan-epbx 00119 UNIT/ML injection Commonly known as: Retacrit Inject [...] Complexity: follow up within 7-14 calendar days (77238) [] Severe Complexity: follow up within 7 calendar days (67559) FOLLOW UP TESTING, PENDING RESULTS OR REFERRALS AT TRANSITIONAL CARE VISIT: [] Yes [] No PENDING STUDIES: DISPOSITION: Skilled Facility FACILITY/HOME CARE AGENCY NAME: Follow up with [facility] [address] [facility] [id number] Gurdeep Cruz MD [address] [place] [address], [place] [address] [facility] [address] Schedule an appointment as soon [...] 02/01/2025, 10:29 AM documented in this encounter [facility] 01-29-2025 Telephone encount er Note Chart reviewed, patient appears to be sensitive to warfarin at this time and I wouldn't be able to guarantee INR remains less than 3, so opted to hold dose today. I canceled order. [facility] [employer] Work Phone: 01-29-2025 Miscellaneous Notes Formattin g of this note might be different from the original. Chart reviewed, patient appears to be sensitive to warfarin at this time and I wouldn't be able to guarantee INR remains less than 3, so opted to hold dose today. I canceled order. SWEETIE Singh with [facility] called to inform [facility] patient is scheduled to have a tunnel cath line tomorrow and Dr. Lira is inquiring if patient should hold his warfarin 0.[address] Lira does not want INR to go above to 3.0 tomorrow. Staffed with Neelam, PharmD, BCACP, CACP, she will cancel patient's warfarin dose tomorrow and [facility] will make adjustments as needed tomorrow. documented in this encounter [facility] 01-29-2025 Telephone encount er Note SWEETIE Singh with [facility] called to inform [facility] patient is scheduled to have a tunnel cath line tomorrow and Dr. Lira is inquiring if patient should hold his warfarin 0.[address] Lira does not want INR to go above to 3.0 tomorrow. Staffed with Natali Richter, BCACP, CACP, she will cancel patient's warfarin dose tomorrow and [facility] will make adjustments as needed tomorrow. [facility] 01-26-2025 Hospital Discharg e instructions Kristine [...] 10/09/2024 Performed by Bob Watson MD at [facility] Cardiac Cath/EP Lab CARDIAC CATHETERIZATION Bilateral 11/01/2024 Performed by Bob Watson MD at [facility] Cardiac Cath/EP Lab CARDIAC CATHETERIZATION N/A 11/01/2024 Performed by Bob Watson MD at [facility] Cardiac Cath/EP Lab COLONOSCOPY N/A 01/24/2025 Performed by Chadd Davis MD at [facility] ENDOSCOPY FISTULAGRAM (HISTORICAL) Left 09/15/2021 LEFT UPPER ARM HX AV FISTULA CREATION IR EMBOLIZATION 10/14/2024 IR EMBOLIZATION 10/14/2024 [facility] SPECIAL PROCEDURES IR FISTULAGRAM 08/07/2022 IR FISTULAGRAM 08/07/2022 [facility] IR IMAGING TONSILLECTOMY (HISTORICAL) [...] Acute respiratory failure with hypoxia ([facility]) [J96.01] Tracheostomy care ([facility]) [Z43.0] Pulmonary embolism ([facility]) FPC (current) use of antibiotics Anemia Aortic stenosis [...] Total assistance Toileting Total assistance Feeding Independent Wound Care Coordinator Independent Med Delivery yes Wound Care Documentation and Therapy: Wound/Incision 11/13/24 Pressure Injury Sacrum (Active) Wound Image 01/19/25 0500 Site Assessment [place];Red 01/26/25 1200 [place]naz-Wound Assessment Intact 01/26/25 0355 [...] Date: 01/21/25 Discharging to Facility/ Agency Name: Annia Beatrice Address: [address] [place] [address] Fax: Dialysis Facility (if applicable) Name: Address: Dialysis Schedule: [facility] Phone: Fax: Director Digital Catalogue/Wire Drawing Die Maker signature: ICIAN SECTION Name: Jun Snyder Prognosis: fair Condition at Discharge: stable Rehab Potential (if transferring to Rehab): fair Recommended Labs or Other Treatments After Discharge: cbc,cmp, PT/INR for warfarin, C/W Ampicillin-Sulbactam till 02/13, F/U with ID The individual is being admitted to a nursing facility directly from an [facility] or a unit of a hospital that is not operated by or licensed by [facility] under section 5119.14 or 5160-3-15.1 5 The individual requires the level of services provided by a nursing facility for the condition for which he or she was treated in the hospital and, Physician Certification: I certify the above information and transfer of Jun Snyder is necessary for the continuing treatment of the diagnosis listed and that he requires [facility] facility for less than 30 days. Update Admission H&P: No change in H&P PHYSICIAN SIGNATURE: documented in this encounter [facility] 01-24-2025 Procedure note Images from the [...] The patient was placed on a cardiac monitor technician and vital signs, pulse oximetry, and level [...] of the procedure. documented in this encounter [facility] 01-23-2025 Consult note Associated Order (s): INPATIENT CONSULT TO WOUND CARE PROVIDERS Images from the original note were not included. [facility] Wound Care Re-CONSULT Note Jun Snyder [...] diverticulosis, IgA nephropathy, severe that presented to [facility] ED from a facility [...] Date Acute renal failure (ARF) ([facility]) 10/19/2019 Anemia 12/30/2021 Calcification of abdominal aorta ([facility]) 10/08/202309/[address] abd Diverticulosis 10/08/2023 ESRD on hemodialysis ([facility]) ([facility]) 10/26/2019 Hemodialysis patient ([facility]) ([facility]) HTN (hypertension) 12/01/2022 Hypertension IgA nephropathy IgA nephropathy determined by biopsy of kidney 10/26/2019 Missed vaccination due to patient refusal 10/08/2023 Has a number of non-scientific based beliefs which interfere with his understanding and acceptance of the medical benefit of vaccination. Nonrheumatic aortic valve stenosis 10/08/2023 Paroxysmal A-fib ([facility]) ([facility]) 08/18/2023 Tobacco abuse 10/08/2023 PAST SURGICAL HISTORY Past Surgical History: Procedure Laterality Date APPENDECTOMY CARDIAC CATHETERIZATION N/A 10/09/2024 Performed by Bob Watson MD at [facility] Cardiac Cath/EP Lab CARDIAC CATHETERIZATION Bilateral 11/01/2024 Performed by Bob Watson MD at [facility] Cardiac Cath/EP Lab CARDIAC CATHETERIZATION N/A 11/01/2024 Performed by Bob Watson MD at [facility] Cardiac Cath/EP Lab FISTULAGRAM (HISTORICAL) Left 09/15/2021 [...] Medication Sig Dispense Refill epoetin rowan-epbx (Retacrit) 79018 UNIT/ML injection Inject 0.79 mL (7,900 Units) [...] to follow Recommend to follow up at [facility] Outpatient wound care center after hospital [...] admitted on 01/19/2025 for Complication of tracheostomy [place] ([facility]) [J95.00] Past Medical History: Diagnosis Date Acute renal failure (ARF) ([facility]) 10/19/2019 Anemia 12/30/2021 Calcification of abdominal aorta ([facility]) 10/08/202309/[address] abd Diverticulosis 10/08/2023 ESRD [place] hemodialysis [place] ([facility]) 10/26/2019 Hemodialysis [place] ([facility]) HTN (hypertension) 12/01/2022 Hypertension IgA nephropathy IgA nephropathy determined by biopsy of kidney 10/26/2019 Missed vaccination due to patient refusal 10/08/2023 Has a number of non-scientific based beliefs which interfere with his understanding and acceptance of the medical benefit of vaccination. Nonrheumatic aortic valve stenosis 10/08/2023 Paroxysmal A-fib ([facility]) ([facility]) 08/18/2023 Tobacco abuse 10/08/2023 Patient is on [...] dose accordingly 3. Will facilitate f/u at [facility] upon discharge Fatuma Odonnell RPh, PharmD [facility] is available daily [phone] via [employer] Chat. If no response on Epic Chat then please page [phone]. Images from the original note were not [...] AV replacement Supratherapeutic INR - [facility] [employer] [facility] [employer] valve in 09/2024 - coumadin held due [...] Palliative Care IDT members involved: Palliative Care Wire Drawing Die Maker Discussed the plan of care with the [...] to have bile peritonitis" 11/28/24: transferred to [facility] He ended up developing sacral ulcer and osteomyelitis at [facility] He then ended up dislodging his tracheostomy, and was brought to [facility] ED for further care. Palliative care consulted [...] status: SNF Work history: unknown status: unknown Tenriism annette: Non-Mormon ROS: See palliative care ROS/ESAS below; All other systems were reviewed and are negative. [place] Symptom Assessment Score [place] Score Pain Score (if non-verbal, add .FLACC [...] Date Acute renal failure (ARF) ([facility]) 10/19/2019 Anemia 12/30/2021 Calcification of abdominal aorta ([facility]) 10/08/202309/[address] abd Diverticulosis 10/08/2023 ESRD on hemodialysis ([facility]) ([facility]) 10/26/2019 Hemod[place] ([facility]) HTN (hypertension) 12/01/2022 Hypertension IgA nephropathy IgA [...] 10/09/2024 Performed by Bob Watson MD at [facility] Cardiac Cath/EP Lab CARDIAC CATHETERIZATION Bilateral 11/01/2024 Performed by Bob Watson MD at [facility] Cardiac Cath/EP Lab CARDIAC CATHETERIZATION N/A 11/01/2024 Performed by Bob Watson MD at [facility] Cardiac Cath/EP Lab FISTULAGRAM (HISTORICAL) Left 09/15/2021 LEFT UPPER ARM HX AV FISTULA CREATION IR EMBOLIZATION 10/14/2024 IR EMBOLIZATION 10/14/2024 [facility] SPECIAL PROCEDURES IR FISTULAGRAM 08/07/2022 IR FISTULAGRAM [...] Transition Note Initiated: yes Tex Cotto MD [facility] Anticoagulation Management Service ([facility]) Inpatient Warfarin Consult HPI: Jun Snyder is a 59 y.o. male admitted on 01/19/2025 for Complication of tracheostomy [place] ([facility]) [J95.00] Past Medical History: Diagnosis Date Acute renal failure (ARF) ([facility]) 10/19/2019 Anemia 12/30/2021 Calcification of abdominal aorta ([facility]) 10/08/202309/[address] abd Diverticulosis 10/08/2023 [place]D [place] hemodialysis [place] ([facility]) 10/26/2019 Hemod[place]) HTN (hypertension) 12/01/2022 Hypertension IgA nephropathy IgA nephropathy determined by biopsy of kidney 10/26/2019 Missed vaccination due to patient refusal 10/08/2023 Has a number of non-scientific based beliefs which interfere with his understanding and acceptance of the medical benefit of vaccination. Nonrheumatic aortic valve stenosis 10/08/2023 Paroxysmal A-fib ([facility]) ([facility]) 08/18/2023 Tobacco abuse 10/08/2023 Patient is on [...] possible GIB and elevated INR, please notify [facility] when able to resume anticoagulation. 2. Monitor for s/s of bleeding and drug interactions. Will adjust dose accordingly 3. Will facilitate f/u at [facility] upon discharge Fatuma Odonnell RPh, PharmD [facility] is available daily [phone] via [employer] Chat. If no response on Epic Chat then please page [phone]. [facility] Anticoagulation Management Service ([facility]) Inpatient Warfarin Consult HPI: Jun Snyder is a 59 y.o. male admitted on 01/19/2025 for Complication of tracheostomy ([facility]) ([facility]) [J95.00] Past Medical History: Diagnosis Date Acute renal failure (ARF) ([facility]) 10/19/2019 Anemia 12/30/2021 Calcification of abdominal aorta ([facility]) 10/08/202309/[address] abd Diverticulosis 10/08/2023 ESRD on hemodialysis ([facility]) ([facility]) 10/26/2019 Hemod[place]) HTN (hypertension) 12/01/2022 Hypertension IgA nephropathy IgA nephropathy determined by biopsy of kidney 10/26/2019 Missed vaccination due to patient refusal 10/08/2023 Has a number of non-scientific based beliefs which interfere with his understanding and acceptance of the medical benefit of vaccination. Nonrheumatic aortic valve stenosis 10/08/2023 Paroxysmal A-fib ([facility]) ([facility]) 08/18/2023 Tobacco abuse 10/08/2023 Patient is on [...] admission. Holding warfarin for GIB, please notify [facility] when able to resume anticoagulation. 2. Monitor for s/s of bleeding and drug interactions. Will adjust dose accordingly 3. Will facilitate f/u at [facility] upon discharge Darryn Wagner RPh, PharmD [facility] is available daily [phone] via Anywhere to Go. If no response on [employer] Chat then please page [phone]. Associated Order(s): IP CONSULT TO GENERAL SURGERY [...] Date Acute renal failure (ARF) ([facility]) 10/19/2019 Anemia 12/30/2021 Calcification of abdominal aorta ([facility]) 10/08/202309/[address] abd Diverticulosis 10/08/2023 ESRD [place] hemodialysis [place]) 10/26/2019 Hemod[place]) HTN (hypertension) 12/01/2022 Hypertension IgA nephropathy IgA nephropathy determined by biopsy of kidney 10/26/2019 Missed vaccination due to patient refusal 10/08/2023 Has a number of non-scientific based beliefs which interfere with his understanding and acceptance of the medical benefit of vaccination. Nonrheumatic aortic valve stenosis 10/08/2023 Paroxysmal A-fib [place] ([facility]) 08/18/2023 Tobacco abuse 10/08/2023 Past Surgical History: Procedure Laterality Date APPENDECTOMY CARDIAC CATHETERIZATION N/A 10/09/2024 Performed by Bob Watson MD at [facility] Cardiac Cath/EP Lab CARDIAC CATHETERIZATION Bilateral 11/01/2024 Performed by Bob Watson MD at [facility] Cardiac Cath/EP Lab CARDIAC CATHETERIZATION N/A 11/01/2024 Performed by Bob Watson MD at [facility] Cardiac Cath/EP Lab FISTULAGRAM (HISTORICAL) Left 09/15/2021 LEFT UPPER ARM HX AV FISTULA CREATION IR EMBOLIZATION 10/14/2024 IR EMBOLIZATION 10/14/2024 [facility] SPECIAL PROCEDURES IR FISTULAGRAM 08/07/2022 IR FISTULAGRAM 08/07/2022 [facility] IR IMAGING TONSILLECTOMY (HISTORICAL) Medications Prior to Admission: Current Facility-Administered Medications Medication Dose Route Frequency Provider Last Rate Last Admin acetaminophen (Tylenol) tablet 1,000 mg 1,000 mg Oral q8h PRN Steve Lassiter MD 1,000 mg at 01/19/25 1540 ampicillin-sulbactam (Unasyn) 3,000 mg in sodium chloride 0.9 % 100 mL IVPB (Add-[place]) 3,000 mg IntraVENous q12h Steve Lassiter MD [...] mL injection 40 mg IntraVENous BID Chantell Laquidara, DO Phenylephrine HCl (Pressors) 1 MG/10ML injection [...] Patient Unable To Answer (12/01/2024) Received from [facility] Overall Financial Resource Strain (CARDIA) Difficulty of Paying Living Expenses: Patient unable to answer Food Insecurity: Patient Unable To Answer (12/01/2024) Received from [facility] Hunger Vital Sign Worried About Running Out of Food in the Last Year: Patient unable to answer Ran Out of Food in the Last Year: Patient unable to answer Transportation Needs: No Transportation Needs (01/18/2025) Received from [facility] Transportation Source Has lack of transportation kept you from medical appointments or from getting medications?: No Has lack of transportation kept you from meetings, work, or from getting things needed for daily living?: No Stress: No Stress Concern Present (01/18/2025) Received from [facility] [place] of Occupational Health - Occupational Stress Questionnaire Feeling of Stress : Not at all Social Connections: Patient Unable To Answer (12/01/2024) Received from [facility] Social Connection and Isolation Panel [NHANES] Frequency of Communication with Friends and Family: Patient unable to answer Frequency of Social Gatherings with Friends and Family: Patient unable to answer Attends Tenriism Services: Patient unable to answer Active Member of Clubs or Organizations: Patient unable to answer Attends Club or Organization Meetings: Patient unable to answer Marital Status: Patient unable to answer Intimate Partner Violence: Patient Unable To Answer (11/28/2024) Received from [facility] Domestic Abuse Assessment Do you [...] LIPASE IMAGING: POCT glucose meter Performed by: [facility], [address] [place] [id number] CLIA ID: [id number] POCT glucose meter Performed by: [facility], [address] [place] [id number] CLIA ID: [id number] POCT glucose meter Performed by: [facility], [address] [place] [id number] CLIA ID: [id number] POCT glucose meter Performed by: [facility], [address] [place] [address] CLIA ID: [id number] POCT glucose meter Performed by: [facility], [address] [place] [id number] CLIA ID: [id number] POCT glucose meter Performed by: [facility], [address] [place] [id number] CLIA ID: [id number] ASSESSMENT AND PLAN: Jun Snyder is a [...] Brenton Goldstein MD General Surgery PGY-1 Pager #[phone] Cosigned by Tex Brush MD at 01/22/2025 6:07 AM EDT Associated attestation - Tex Brush MD - 01/22/2025 6:07 AM EDT ATTENDING ADDENDUM Active Diagnoses/Problems this Admission: Patient Active Problem List Diagnosis Anemia Paroxysmal A-fib ([facility]) ([facility]) HTN (hypertension) ESRD on hemodialysis ([facility]) ([facility]) IgA nephropathy determined by biopsy of kidney Diverticulosis Nonrheumatic aortic valve stenosis Calcification of abdominal aorta ([facility]) Missed vaccination due to patient refusal Tobacco abuse Alcohol use disorder in remission Atrial flutter, unspecified type ([facility]) RSV (acute bronchiolitis due to respiratory syncytial virus) Aortic stenosis Upper GI bleed S/P AVR Acute hypoxic respiratory failure ([facility]) Acute encephalopathy Pneumoperitoneum Gastric ulceration Severe malnutrition (CMS/HCC) ([facility]) Pleural effusion Peritonitis due to fungus ([facility]) History of abdominal surgery Leg DVT (deep venous thromboembolism), acute, left ([facility]) Ischemic ulcer of toe of left foot, limited to breakdown of skin ([facility]) Tracheostomy dependence ([facility]) Leukocytosis Decubitus ulcer of sacral region, unstageable ([facility]) Pneumonia of both lungs due to methicillin susceptible Staphylococcus aureus (MSSA) ([facility]) Sacral osteomyelitis (CMS/HCC) ([facility]) Acute respiratory failure with hypoxia ([facility]) [J96.01] Tracheostomy care ([facility]) [Z43.0] Pulmonary embolism ([facility]) FPC (current) use of antibiotics Complication of tracheostomy ([facility]) ([facility]) I personally supervised the resident physician in [...] Surgery Division of Trauma Department of Surgery [facility] Images from the original note were [...] IgA nephropathy, severe who was admitted to [facility] 01/19 due to trach dislodgement. Since patient [...] Normal [] Scar/Lesion/Mass Inspection of teeth/lips/gums Dentition: []Habematolel Teeth []Dentures Lips/Gums: [x]Intact []Lesion Present Mucosa: [x][place] []Moist [x]Dry Neck: External Appearance Overall Appearance: [...] 2:43 PM I have personally performed a [id number] diagnostic evaluation on this patient on date of service 01/21/2025. History, labs, imaging studies, and electronic medical record have been reviewed by me. This note documented by the [x]plumbing warehouse helper []ARMIN reflects my history, exam, and medical decision making. I have reviewed and agree with the care plan. Changes were made in the orders as necessary. ROS documentation was reviewed and negative unless otherwise stated in HPI. Additional pertinent interval history, ROS, and physical exam findings: Mr Snyder is a 59 year old male who presented to [facility] 01/19 after inadvertent removal of his tracheostomy. He was transferred to [facility] ICU for surgical evaluation. On arrival he [...] maintain >7 -Hold coumadin -Continue protonix bid -TALLOW PUMPER per nephrology, will appreciate recs -Consult general [...] Abhishek gastrostomy tube placement, who presented to [facility] on 01/19/25 as a transfer from [facility] Per patient, was trying to disconnect his vent to transfer to another room but accidentally pulled out his tracheostomy. This event happened approximately 45 minutes before ED arrival. ED attempted to place tracheostomy tube back but were unsuccessful. Decision was made to transfer patient to [facility] ICU for further airway management and determine if replacement tracheostomy is needed. Patient was admitted to the MICU-01/19 where he was evaluated by general surgery for re-do tracheostomy and determined to be saturating appropriately on room air without need for re-placement. Patient was transferred out of the MICU for potential discharge back to [facility] facility. The MICU is consulted now for [...] Date Acute renal failure (ARF) ([facility]) 10/19/2019 Anemia 12/30/2021 Calcification of abdominal aorta ([facility]) 10/08/202309/[address] abd Diverticulosis 10/08/2023 ESRD on hemodialysis ([facility]) ([facility]) 10/26/2019 [place]) HTN (hypertension) 12/01/2022 Hypertension IgA nephropathy IgA nephropathy determined by biopsy of kidney 10/26/2019 Missed vaccination due to patient refusal 10/08/2023 Has a number of non-scientific based beliefs which interfere with his understanding and acceptance of the medical benefit of vaccination. Nonrheumatic aortic valve stenosis 10/08/2023 Paroxysmal A-fib ([facility]) ([facility]) 08/18/2023 Tobacco abuse 10/08/2023 Past Surgical History: Procedure Laterality Date APPENDECTOMY CARDIAC CATHETERIZATION N/A 10/09/2024 Performed by Bob Watson MD at [facility] Cardiac Cath/EP Lab CARDIAC CATHETERIZATION Bilateral 11/01/2024 Performed by Bob Watson MD at [facility] Cardiac Cath/EP Lab CARDIAC CATHETERIZATION N/A 11/01/2024 Performed by Bob Watson MD at [facility] Cardiac Cath/EP Lab FISTULAGRAM (HISTORICAL) Left 09/15/2021 LEFT UPPER ARM HX AV FISTULA CREATION IR EMBOLIZATION 10/14/2024 IR EMBOLIZATION 10/14/2024 [facility] SPECIAL PROCEDURES IR FISTULAGRAM 08/07/2022 IR FISTULAGRAM [...] Patient Unable To Answer (12/01/2024) Received from [facility] Overall Financial Resource Strain (CARDIA) Difficulty of Paying Living Expenses: Patient unable to answer Food Insecurity: Patient Unable To Answer (12/01/2024) Received from [facility] Hunger Vital Sign Worried About Running Out of Food in the Last Year: Patient unable to answer Ran Out of Food in the Last Year: Patient unable to answer Transportation Needs: No Transportation Needs (01/18/2025) Received from [facility] Transportation Source Has lack of transportation kept you from medical appointments or from getting medications?: No Has lack of transportation kept you from meetings, work, or from getting things needed for daily living?: No Physical Activity: Not on file Stress: No Stress Concern Present (01/18/2025) Received from [facility] [place] of Occupational [facility] - Occupational Stress Questionnaire Feeling of Stress : Not at all Social Connections: Patient Unable To Answer (12/01/2024) Received from [facility] Social Connection and Isolation Panel [NHANES] Frequency of Communication with Friends and Family: Patient unable to answer Frequency of Social Gatherings with Friends and Family: Patient unable to answer Attends Tenriism Services: Patient unable to answer Active Member of Clubs or Organizations: Patient unable to answer Attends Club or Organization Meetings: Patient unable to answer Marital Status: Patient unable to answer Intimate Partner Violence: Patient Unable To Answer (11/28/2024) Received from [facility] Medical Domestic Abuse Assessment Do you feel safe in your relationships at home?: Unable to assess Physical Abuse: Unable to assess [facility] Domestic Abuse - Type of Abuse: Not on file [facility] Domestic Abuse - Time Frame: Not on file [facility] Domestic Abuse - Signs and Symptoms: Not on file Verbal Abuse: Unable to assess [facility] Domestic Abuse - Reported To: Not on file Housing Stability: Patient Unable To Answer (12/01/2024) Received from [facility] Medical Housing Stability Vital Sign Unable to Pay for Housing in the Last Year: Patient unable to answer Number of Times Moved in the Last Year: 0 Homeless in the Last Year: Patient unable to answer Allergies Allergen Reactions Lisinopril Swelling and Angioedema Prior to Admission medications Medication Sig Start Date End Date Taking? Authorizing Provider epoetin rowan-epbx (Retacrit) 21170 UNIT/ML injection Inject 0.79 mL (7,900 Units) [...] Normal [] Scar/Lesion/Mass Inspection of teeth/lips/gums Dentition: []Habematolel Teeth []Dentures Lips/Gums: [x]Intact []Lesion Present Mucosa: [x][place] []Moist []Dry Neck: External Appearance Overall Appearance: [...] -- ABGs: No results for input(s): "PHART", "ECM4LQS", "PO2ART", "KEW3VKA", "SO2ART", "R6PMDLDC" in the last 72 hours. Lactic Acid: [...] Problem: Complication of tracheostomy (CMS/HCC) ([facility]) Active Problems: Severe malnutrition (CMS/HCC) ([facility]) Assessment: Passage of Bright red blood per [...] normal BMI 18.5-24.9 Disposition: Remain on the [facility] Critical Care Time: Total critical care [...] PM EDT I have personally performed a [id number] diagnostic evaluation on this patient on date of service 01/20/25. History, labs, imaging studies, and electronic medical record have been reviewed by me. This note documented by the []plumbing warehouse helper []ARMIN reflects my history, exam, and medical [...] from the original note were not included. [facility] - Infectious Diseases Advanced Practice Provider Consult Note Reason for Consult: Sacral ulcer osteomyelitis on IV abx at [facility] known patient History of Present Illness: 59 yo male with PMHx significant for ESRD on HD, HTN, and PAD who was admitted at [facility] 10/03-11/28/24 after presenting with chest pain, cough, [...] Pip-Tazo and Anidulafungin. He was transferred to [facility] on 11/28/24. There he was followed by our ID group and had had recurrent MSSA LRTI that was treated. Additionally, his sacral wound was debrided to bone on 01/02/25. Sacral wound Cx + E faecalis and Clostridium clostridioforme. He is to be on a course of Amp-Sulbactam x6 weeks through 02/13/25. He was discharged to SNF on 01/18. Patient presented to [facility] on 01/19 after self-dislodging tracheostomy. He was transferred to [facility] ICU for further airway management and to [...] Date Acute renal failure (ARF) ([facility]) 10/19/2019 Anemia 12/30/2021 Calcification of abdominal aorta ([facility]) 10/08/202309/[address] abd Diverticulosis 10/08/2023 [place]) 10/26/2019 [place]) HTN (hypertension) 12/01/2022 Hypertension IgA nephropathy IgA nephropathy determined by biopsy of kidney 10/26/2019 Missed vaccination due to patient refusal 10/08/2023 Has a number of non-scientific based beliefs which interfere with his understanding and acceptance of the medical benefit of vaccination. Nonrheumatic aortic valve stenosis 10/08/2023 Paroxysmal A-fib ([facility]) ([facility]) 08/18/2023 Tobacco abuse 10/08/2023 Past Surgical History: Past Surgical History: Procedure Laterality Date APPENDECTOMY CARDIAC CATHETERIZATION N/A 10/09/2024 Performed by Bob Watson MD at [facility] Cardiac Cath/EP Lab CARDIAC CATHETERIZATION Bilateral 11/01/2024 Performed by Bob Watson MD at [facility] Cardiac Cath/EP Lab CARDIAC CATHETERIZATION N/A 11/01/2024 Performed by Bob Watson MD at [facility] Cardiac Cath/EP Lab FISTULAGRAM (HISTORICAL) Left 09/15/2021 LEFT UPPER ARM HX AV FISTULA CREATION IR EMBOLIZATION 10/14/2024 IR EMBOLIZATION 10/14/2024 [facility] SPECIAL PROCEDURES IR FISTULAGRAM 08/07/2022 IR FISTULAGRAM 08/07/2022 SB IR IMAGING TONSILLECTOMY (HISTORICAL) Current Medications: Current Facility-Administered Medications Medication Dose Route Frequency Provider Last Rate Last Admin acetaminophen (Tylenol) tablet 1,000 mg 1,000 mg Oral q8h PRN Steve Lassiter MD 1,000 mg at 01/19/25 1540 ampicillin-sulbactam (Unasyn) 3,000 mg in sodium chloride 0.9 % 100 mL IVPB (Add-[place]) 3,000 mg IntraVENous q12h Steve Lassiter MD [...] Patient Unable To Answer (12/01/2024) Received from [facility] Medical Overall Financial Resource Strain (CARDIA) Difficulty of Paying Living Expenses: Patient unable to answer Food Insecurity: Patient Unable To Answer (12/01/2024) Received from [facility] Medical Hunger Vital Sign Worried About Running Out of Food in the Last Year: Patient unable to answer Ran Out of Food in the Last Year: Patient unable to answer Transportation Needs: No Transportation Needs (01/18/2025) Received from [facility] Medical [facility] Transportation Source Has lack of transportation kept you from medical appointments or from getting medications?: No Has lack of transportation kept you from meetings, work, or from getting things needed for daily living?: No Physical Activity: Not on file Stress: No Stress Concern Present (01/18/2025) Received from [facility] [place] [facility] - Occupational Stress Questionnaire Feeling of Stress : Not at all Social Connections: Patient Unable To Answer (12/01/2024) Received from [facility] Medical Social Connection and Isolation Panel [NHANES] Frequency of Communication with Friends and Family: Patient unable to answer Frequency of Social Gatherings with Friends and Family: Patient unable to answer Attends Tenriism Services: Patient unable to answer Active Member of Clubs or Organizations: Patient unable to answer Attends Club or Organization Meetings: Patient unable to answer Marital Status: Patient unable to answer Intimate Partner Violence: Patient Unable To Answer (11/28/2024) Received from [facility] Medical Domestic Abuse Assessment Do you feel safe in your relationships at home?: Unable to assess Physical Abuse: Unable to assess [facility] Domestic Abuse - Type of Abuse: Not on file [facility] Domestic Abuse - Time Frame: Not on file [facility] Domestic Abuse - Signs and Symptoms: Not on file Verbal Abuse: Unable to assess [facility] Domestic Abuse - Reported To: Not on file Housing Stability: Patient Unable To Answer (12/01/2024) Received from [facility] Medical Housing Stability Vital Sign Unable to [...] NEUTROABS 7.6* 7.5 7.5 -- Micro: Previous ([facility]) 01/02- sacral wound cx- E faecalis (Amp-S), [...] wound debrided to bone on 01/02 at [facility] (Cx with E faecalis and Clostridium) Plan [...] accounting for open encounter. Mikala MORAN PA-C [facility] Infectious Disease Cosigned by Gurdeep Cruz MD [...] gastrostomy tube placement, who presented to the [facility] emergency room from [facility] on 01/19/2025 where he is admitted for IV antibiotics for multiple infected wounds including dry gangrene to the left foot and sacral ulcers. Patient accidentally pulled his tracheostomy and was therefore transferred to the emergency room. Patient transferred to [facility] for higher level of care. GI [...] throughout entire last hospitalization. On presentation to [facility] 01/19/2025 hemoglobin was 9.1. This morning dropped to 6.6. No transfusion but repeat hemoglobin 3 hours later at 8.2. Currently getting dialysis. Reports he had a BM 5 minutes ago and he does not know what stools have looked like. He denies abdominal pain. No nausea, vomiting. Per patient girlfriend SNF has been flipping [id number] between Coumadin and heparin secondary to patient INR. Assume last dose of Coumadin to be 01/18/2025. History of appendectomy and PEG placement. Allergies: Lisinopril Current Medications: Current Facility-Administered Medications: acetaminophen (Tylenol) tablet 1,000 mg, 1,000 mg, Oral, q8h PRN, Steve Lassiter MD, 1,000 mg at 01/19/25 1540 ampicillin-sulbactam (Unasyn) 3,000 mg in sodium chloride 0.9 % 100 mL IVPB (Add-[place]), 3,000 mg, IntraVENous, q12h, Steve Lassiter MD, [...] Diagnosis Date Noted Anemia 12/30/2021 Paroxysmal A-fib ([facility]) ([facility]) 08/18/2023 HTN (hypertension) 12/01/2022 ESRD on hemodialysis ([facility]) ([facility]) 10/26/2019 IgA nephropathy determined by biopsy of kidney 10/26/2019 Diverticulosis 10/08/2023 Nonrheumatic aortic valve stenosis 10/08/2023 Calcification of abdominal aorta ([facility]) 10/08/2023 Missed vaccination due to patient refusal 10/08/2023 Tobacco abuse 10/08/2023 Alcohol use disorder in remission 10/08/2023 Atrial flutter, unspecified type ([facility]) 10/03/2024 RSV (acute bronchiolitis due to respiratory syncytial virus) 10/03/2024 Aortic stenosis 10/03/2024 Upper GI bleed 10/03/2024 S/P AVR 10/03/2024 Acute hypoxic respiratory failure ([facility]) 10/03/2024 Acute encephalopathy 10/03/2024 Pneumoperitoneum 10/03/2024 Gastric ulceration 2024 Severe malnutrition ([facility]) ([facility]) 01/19/2025 Pleural effusion 11/28/2024 Peritonitis due to fungus ([facility]) 11/30/2024 History of abdominal surgery 11/30/2024 Leg DVT (deep venous thromboembolism), acute, left ([facility]) 11/30/2024 Ischemic ulcer of toe of left foot, limited to breakdown of skin ([facility]) 11/30/2024 Tracheostomy dependence ([facility]) 11/30/2024 Leukocytosis 12/30/2024 Decubitus ulcer of sacral region, unstageable ([facility]) 12/30/2024 Pneumonia of both lungs due to methicillin susceptible Staphylococcus aureus (MSSA) ([facility]) 01/01/2025 Sacral osteomyelitis ([facility]) ([facility]) 01/03/2025 Acute respiratory failure with hypoxia ([facility]) [J96.01] 01/08/2025 Tracheostomy care ([facility]) [Z43.0] 01/08/2025 Pulmonary embolism ([facility]) 01/08/2025 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 (current) use of antibiotics 01/12/2025 Resolved Ambulatory Problems Diagnosis Date Noted Acute renal failure (ARF) ([facility]) 10/19/2019 New onset a-fib ([facility]) ([facility]) 08/16/2023 Pulmonary embolism ([facility]) 10/03/2024 Past Medical History: Diagnosis Date Hemodialysis patient (CMS/HCC) (HCC) Hypertension IgA nephropathy Past Surgical History: Social [...] Patient Unable To Answer (12/01/2024) Received from [facility] Overall Financial Resource Strain (CARDIA) Difficulty of Paying Living Expenses: Patient unable to answer Food Insecurity: Patient Unable To Answer (12/01/2024) Received from [facility] Hunger Vital Sign Worried About Running Out of Food in the Last Year: Patient unable to answer Ran Out of Food in the Last Year: Patient unable to answer Transportation Needs: No Transportation Needs (01/18/2025) Received from [facility] Transportation Source Has lack of transportation kept you from medical appointments or from getting medications?: No Has lack of transportation kept you from meetings, work, or from getting things needed for daily living?: No Physical Activity: Not on file Stress: No Stress Concern Present (01/18/2025) Received from [facility] [place] [facility] - Occupational Stress Questionnaire Feeling of Stress : Not at all Social Connections: Patient Unable To Answer (12/01/2024) Received from [facility] Social Connection and Isolation Panel [NHANES] Frequency of Communication with Friends and Family: Patient unable to answer Frequency of Social Gatherings with Friends and Family: Patient unable to answer Attends Tenriism Services: Patient unable to answer Active Member of Clubs or Organizations: Patient unable to answer Attends Club or Organization Meetings: Patient unable to answer Marital Status: Patient unable to answer Intimate Partner Violence: Patient Unable To Answer (11/28/2024) Received from [facility] Domestic Abuse Assessment Do you feel safe in your relationships at home?: Unable to assess Physical Abuse: Unable to assess [facility] Domestic Abuse - Type of Abuse: Not on file [facility] Domestic Abuse - Time Frame: Not on file [facility] Domestic Abuse - Signs and Symptoms: Not on file Verbal Abuse: Unable to assess [facility] Domestic Abuse - Reported To: Not on file Housing Stability: Patient Unable To Answer (12/01/2024) Received from [facility] Medical Housing Stability Vital Sign Unable to [...] 10/12/24, Coumadin, last dose suspected 01/18/25 at [facility] Acute Right occipital ICH- 10/22/24 ESRD on [...] team - GI to follow Cosigned by Eldno Alba MD at 01/21/2025 8:23 AM EDT Associated Order(s): IP CONSULT TO PALLIATIVE CARE Consult acknowledged. Chart reviewed. Jun Snyder is a 59 y.o. male with who presented to [facility] as transfer for trach dislodgment. Palliative Care [...] pt was receiving and tolerating while at [facility] Per MNT protocol will initiate EN as above given prior consult for TF ordering and management. This result has been reviewed by Casandra Everett RD, LD on 01/20/25 at 7:18 AM. [facility] Consult Note Consults HPI The patient [...] Date Acute renal failure (ARF) ([facility]) 10/19/2019 Anemia 12/30/2021 Calcification of abdominal aorta ([facility]) 10/08/202309/[address] abd Diverticulosis 10/08/2023 [place]) 10/26/2019 [place]od[place]) HTN (hypertension) 12/01/2022 Hypertension IgA nephropathy IgA nephropathy determined by biopsy of kidney 10/26/2019 Missed vaccination due to patient refusal 10/08/2023 Has a number of non-scientific based beliefs which interfere with his understanding and acceptance of the medical benefit of vaccination. Nonrheumatic aortic valve stenosis 10/08/2023 Paroxysmal A-fib [place] ([facility]) 08/18/2023 Tobacco abuse 10/08/2023 Social History Socioeconomic [...] Patient Unable To Answer (12/01/2024) Received from [facility] Overall Financial Resource Strain (CARDIA) Difficulty of Paying Living Expenses: Patient unable to answer Food Insecurity: Patient Unable To Answer (12/01/2024) Received from [facility] Hunger Vital Sign Worried About Running Out of Food in the Last Year: Patient unable to answer Ran Out of Food in the Last Year: Patient unable to answer Transportation Needs: No Transportation Needs (01/18/2025) Received from [facility] Transportation Source Has lack of transportation kept you from medical appointments or from getting medications?: No Has lack of transportation kept you from meetings, work, or from getting things needed for daily living?: No Physical Activity: Not on file Stress: No Stress Concern Present (01/18/2025) Received from [facility] [place] [facility] - Occupational Stress Questionnaire Feeling of Stress : Not at all Social Connections: Patient Unable To Answer (12/01/2024) Received from [facility] Medical Social Connection and Isolation Panel [NHANES] Frequency of Communication with Friends and Family: Patient unable to answer Frequency of Social Gatherings with Friends and Family: Patient unable to answer Attends Tenriism Services: Patient unable to answer Active Member of Clubs or Organizations: Patient unable to answer Attends Club or Organization Meetings: Patient unable to answer Marital Status: Patient unable to answer Intimate Partner Violence: Patient Unable To Answer (11/28/2024) Received from [facility] Medical Domestic Abuse Assessment Do you feel safe in your relationships at home?: Unable to assess Physical Abuse: Unable to assess [facility] Domestic Abuse - Type of Abuse: Not on file [facility] Domestic Abuse - Time Frame: Not on file [facility] Domestic Abuse - Signs and Symptoms: Not on file Verbal Abuse: Unable to assess [facility] Domestic Abuse - Reported To: Not on file Housing Stability: Patient Unable To Answer (12/01/2024) Received from [facility] Medical Housing Stability Vital Sign Unable to [...] sodium chloride 0.9 % 100 mL IVPB (Add-[place]), 3,000 mg, IntraVENous, Daily, Steve Lassiter MD [...] 7 days Lab Units 01/19/25 0342 01/16/25 03101/15/25 0257 SODIUM mmol/L 135* 138 135* POTASSIUM mmol/L 4.4 4.0 5.6* CHLORIDE mmol/L 95* 95* 93* CO2 mmol/L 25 28 27 BUN mg/dL 80* 64* 117* CREATININE mg/dL 3.50* 2.46* 3.97* GLUCOSE mg/dL 85 85 95 CALCIUM mg/dL 10.6* 9.6 10.2 Results from last 7 days Lab Units 01/19/25 0342 01/16/25 03101/15/25 0257 SODIUM mmol/L 135* < > 135* [...] airway management needs. Maintain NPO status per ASSOCIATE DRAFTER recommendations until airway stabilization; consider modification of HD orders if NPO persists beyond 24-48 hours impacting volume/nutrition Please message me through [employer] chat with any questions or concerns. Wellington Nicole MD 01/19/2025 4:13 PM [facility] [place] [address], [address] [place] [address] Office: [phone] Associated Order(s): IP CONSULT TO DIETITIAN; IP [...] EN only as sole source of nutrition. ASSOCIATE DRAFTER was following while pt was at [facility] ASSOCIATE DRAFTER consulted inpatient and recommending strict NPO. RD [...] pt was receiving and tolerating while at [facility] Will monitor tolerance of nutrition as initiated and increased to goal. 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 Operator Strength: Not Performed Nutrition Assessment: pt [...] Prostat, pt was stabilized and transferred to [facility] for ongoing care, vent liberation and rehab, while at [facility] RD was following and pt was receiving Nepro @ 50mls/hr, pt was discharged from [facility] to SNF on 01/18/25, pt now presented to [facility] ED on 01/19/25 from SNF ([facility]) due to trach dislodgement, pt stated he was trying to disconnect his vent to transfer to another room but accidentally pulled out his tracheostomy, event happened approximately 45 minutes before ED arrival, ED attempted to place tracheostomy tube back but was unsuccessful thus decision was made to transfer pt to [facility] ICU for further airway management and to [...] states he has been like this since [facility], pt was transferred to ICU for further management, Nephrology and wound care consults pending, ASSOCIATE DRAFTER was also consulted and recommending strict NPO. In terms of nutrition pt remains NPO at this time, RD spoke with pt in room, no family/visitors present, pt states that he was only receiving nutrition via PEG DOOR TECHNICIAN, states his goals are to 'eat ice [...] Pt presented from SNF, prolonged admit at [facility] 10/03-11/28/24, discharged to [facility] and recently transferred to [facility] Orientation Level: Oriented to situation, Oriented [...] bedscale, 10/31: 200#, 11/28: 161#, 01/18: 142#) [place] Body Weight (lbs) (Calculated): 166 lbs [place] Body Weight (Kg) (Calculated): 75 kg % [place] Body Weight (Calculated): 78.2 % BMI (kg/m2) [...] Nutrition Dana El RD Contact: available via [employer] or *[id number] Associated Order(s): INPATIENT CONSULT TO WOUND CARE PROVIDERS Images from the original note were not included. [facility] Wound Care CONSULT Note Jun Snyder [...] diverticulosis, IgA nephropathy, severe that presented to [facility] ED from a facility due to trach dislodgement. Wound Care consulted for Pressure Injury sacrum and Ischemic ulcers to left toes" PAST MEDICAL HISTORY Past Medical History: Diagnosis Date Acute renal failure (ARF) ([facility]) 10/19/2019 Anemia 12/30/2021 Calcification of abdominal aorta ([facility]) 10/08/202309/[address] abd Diverticulosis 10/08/2023 ESRD on hemodialysis ([facility]) ([facility]) 10/26/2019 Hemodialysis patient ([facility]) ([facility]) HTN (hypertension) 12/01/2022 Hypertension IgA nephropathy IgA nephropathy determined by biopsy of kidney 10/26/2019 Missed vaccination due to patient refusal 10/08/2023 Has a number of non-scientific based beliefs which interfere with his understanding and acceptance of the medical benefit of vaccination. Nonrheumatic aortic valve stenosis 10/08/2023 Paroxysmal A-fib ([facility] [facility]) ([facility]) 08/18/2023 Tobacco abuse 10/08/2023 PAST SURGICAL HISTORY Past Surgical History: Procedure Laterality Date APPENDECTOMY CARDIAC CATHETERIZATION N/A 10/09/2024 Performed by Bob Watson MD at [facility] Cardiac Cath/EP Lab CARDIAC CATHETERIZATION Bilateral 11/01/2024 Performed by Bob Watson MD at [facility] Cardiac Cath/EP Lab CARDIAC CATHETERIZATION N/A 11/01/2024 Performed by Bob Watson MD at [facility] Cardiac Cath/EP Lab FISTULAGRAM (HISTORICAL) Left 09/15/2021 LEFT UPPER ARM HX AV FISTULA CREATION IR EMBOLIZATION 10/14/2024 IR EMBOLIZATION 10/14/2024 [facility] SPECIAL PROCEDURES IR FISTULAGRAM 08/07/2022 IR FISTULAGRAM 08/07/2022 [facility] IR IMAGING TONSILLECTOMY (HISTORICAL) [...] Medication Sig Dispense Refill epoetin rowan-epbx (Retacrit) 69225 UNIT/ML injection Inject 0.79 mL (7,900 Units) [...] to follow Recommend to follow up at [facility] Outpatient wound care center after hospital [...] 4:05 PM EDT documented in this encounter [facility] 01-19-2025 History and physical note Images [...] diverticulosis, IgA nephropathy, severe that presented to [facility] ED from a facility due to trach dislodgement. Per patient, was trying to disconnect his vent to transfer to another room but accidentally pulled out his tracheostomy. This event happened approximately 45 minutes before ED arrival. ED attempted to place tracheostomy tube back but were unsuccessful. Decision was made to transfer patient to [facility] ICU for further airway management and determine [...] Date Acute renal failure (ARF) ([facility]) 10/19/2019 Anemia 12/30/2021 Calcification of abdominal aorta ([facility]) 10/08/202309/[address] abd Diverticulosis 10/08/2023 ESRD on hemodialysis ([facility]) ([facility]) 10/26/2019 Hemodialysis patient ([facility]) ([facility]) HTN (hypertension) 12/01/2022 Hypertension IgA nephropathy IgA nephropathy determined by biopsy of kidney 10/26/2019 Missed vaccination due to patient refusal 10/08/2023 Has a number of non-scientific based beliefs which interfere with his understanding and acceptance of the medical benefit of vaccination. Nonrheumatic aortic valve stenosis 10/08/2023 Paroxysmal A-fib ([facility]) ([facility]) 08/18/2023 Tobacco abuse 10/08/2023 Past Surgical History: Procedure Laterality Date APPENDECTOMY CARDIAC CATHETERIZATION N/A 10/09/2024 Performed by Bob Watson MD at [facility] Cardiac Cath/EP Lab CARDIAC CATHETERIZATION Bilateral 11/01/2024 Performed by Bob Watson MD at [facility] Cardiac Cath/EP Lab CARDIAC CATHETERIZATION N/A 11/01/2024 Performed by Bob Watson MD at [facility] Cardiac Cath/EP Lab FISTULAGRAM (HISTORICAL) Left 09/15/2021 [...] Patient Unable To Answer (12/01/2024) Received from [facility] Overall Financial Resource Strain (CARDIA) Difficulty of Paying Living Expenses: Patient unable to answer Food Insecurity: Patient Unable To Answer (12/01/2024) Received from [facility] Hunger Vital Sign Worried About Running Out of Food in the Last Year: Patient unable to answer Ran Out of Food in the Last Year: Patient unable to answer Transportation Needs: No Transportation Needs (01/18/2025) Received from [facility] Transportation Source Has lack of transportation kept you from medical appointments or from getting medications?: No Has lack of transportation kept you from meetings, work, or from getting things needed for daily living?: No Physical Activity: Not on file Stress: No Stress Concern Present (01/18/2025) Received from [facility] [place] of Occupational Health - Occupational Stress Questionnaire Feeling of Stress : Not at all Social Connections: Patient Unable To Answer (12/01/2024) Received from [facility] Medical Social Connection and Isolation Panel [NHANES] Frequency of Communication with Friends and Family: Patient unable to answer Frequency of Social Gatherings with Friends and Family: Patient unable to answer Attends Tenriism Services: Patient unable to answer Active Member of Clubs or Organizations: Patient unable to answer Attends Club or Organization Meetings: Patient unable to answer Marital Status: Patient unable to answer Intimate Partner Violence: Patient Unable To Answer (11/28/2024) [facility] from [facility] Domestic Abuse Assessment Do you feel safe in your relationships at home?: Unable to assess Physical Abuse: Unable to assess [facility] Domestic Abuse - Type of Abuse: Not on file HRSN Domestic Abuse - Time Frame: Not on file HRSN Domestic Abuse - Signs and Symptoms: Not on file Verbal Abuse: Unable to assess [facility] Domestic Abuse - Reported To: Not [...] Date Taking? Authorizing Provider epoetin rowan-epbx (Retacrit) 52655 UNIT/ML injection Inject 0.79 mL (7,900 Units) [...] Normal [] Scar/Lesion/Mass Inspection of teeth/lips/gums Dentition: []Habematolel Teeth []Dentures Lips/Gums: []Intact []Lesion Present Mucosa: [][place] []Moist []Dry Neck: External Appearance Tracheostomy hole [...] 18.5* ABGs: No results for input(s): "PHART", "EOS5FMC", "PO2ART", "LXO5UPE", "SO2ART", "V1BMCPAH" in the last 72 hours. Lactic Acid: [...] Problem: Complication of tracheostomy (CMS/HCC) ([facility]) Assessment: Trach dislodgement Chest pain ESRD Chronic [...] PM EDT I have personally performed a [id number] diagnostic evaluation on this patient on date [...] to have bile peritonitis 11/28/24: transferred to [facility] He continued on HD at [facility] Reportedly had ongoing issues with delirium according to his partner, Toma who was at bedside and provided history. Developed severe sacral ulcer and sacral ostomyelitis at [facility] He was progressing with [employer] and using a PMV. Has not done any capping trials. Was transferred to a facility in [place]; there he inadvertently dislodged his tracheostomy. He initially presented to the [facility] emergency dept. He was transferred to [facility] in case of emergetn airway compromise. Assessment: Trach dislodgement, high risk of respiratory failure Chronic respiratory failure due to failure of airway protection ESRD Sacral osteomyelitis s/p AVR Full Code Plan: Admit to MICU Close monitorign for airway compromise Restart abx for osteomyelitis [employer] eval; [facility] Critical Care Time: 33 minutes Total critical care time caring for this patient with life threatening, unstable organ failure, including direct patient contact, management of life support systems, review of data including imaging and labs, discussions with other team members and physicians, excluding procedures. Electronically signed by Bruce Nguyen MD documented in this encounter [facility] 01-19-2025 Emergency department Note EMERGENCY DEPARTMENT [...] who presents to the emergency department From [facility] for accidental dislodgment of his tracheostomy [...] nephropathy, hypertension, and currently being treated at [facility] with IV antibiotics for multiple infected [...] Date Acute renal failure (ARF) ([facility]) 10/19/2019 Anemia 12/30/2021 Calcification of abdominal aorta (HCC) 10/08/202309/[address] abd Diverticulosis 10/08/2023 ESRD on hemodialysis ([facility]) ([facility]) 10/26/2019 Hemodialysis patient ([facility]) ([facility]) HTN (hypertension) 12/01/2022 Hypertension IgA nephropathy IgA nephropathy determined by biopsy of kidney 10/26/2019 Missed vaccination due to patient refusal 10/08/2023 Has a number of non-scientific based beliefs which interfere with his understanding and acceptance of the medical benefit of vaccination. Nonrheumatic aortic valve stenosis 10/08/2023 Paroxysmal A-fib (CMS/HCC) ([facility]) 08/18/2023 Tobacco abuse 10/08/2023 SURGICAL HISTORY Past Surgical History: Procedure Laterality Date APPENDECTOMY CARDIAC CATHETERIZATION N/A 10/09/2024 Performed by Bob Watson MD at [facility] Cardiac Cath/EP Lab CARDIAC CATHETERIZATION Bilateral 11/01/2024 Performed by Bob Watson MD at [facility] Cardiac Cath/EP Lab CARDIAC CATHETERIZATION N/A 11/01/2024 Performed by Bob Watson MD at [facility] Cardiac Cath/EP Lab FISTULAGRAM (HISTORICAL) Left 09/15/2021 LEFT UPPER ARM HX AV FISTULA CREATION IR EMBOLIZATION 10/14/2024 IR EMBOLIZATION 10/14/2024 [facility] SPECIAL PROCEDURES IR FISTULAGRAM 08/07/2022 IR FISTULAGRAM 08/07/2022 [facility] IR IMAGING TONSILLECTOMY (HISTORICAL) CURRENT MEDICATIONS Previous Medications EPOETIN ROWAN-EPBX (RETACRIT) 46500 UNIT/ML INJECTION Inject 0.79 mL (7,900 Units) [...] Patient Unable To Answer (12/01/2024) Received from [facility] Overall Financial Resource Strain (CARDIA) Difficulty of Paying Living Expenses: Patient unable to answer Food Insecurity: Patient Unable To Answer (12/01/2024) Received from [facility] Medical Hunger Vital Sign Worried About Running Out of Food in the Last Year: Patient unable to answer Ran Out of Food in the Last Year: Patient unable to answer Transportation Needs: No Transportation Needs (01/18/2025) Received from [facility] Transportation Source Has lack of transportation kept you from medical appointments or from getting medications?: No Has lack of transportation kept you from meetings, work, or from getting things needed for daily living?: No Stress: No Stress Concern Present (01/18/2025) Received from [facility] [place] of Occupational Health - Occupational Stress Questionnaire Feeling of Stress : Not at all Social Connections: Patient Unable To Answer (12/01/2024) Received from [facility] Medical Social Connection and Isolation Panel [NHANES] Frequency of Communication with Friends and Family: Patient unable to answer Frequency of Social Gatherings with Friends and Family: Patient unable to answer Attends Tenriism Services: Patient unable to answer Active Member of Clubs or Organizations: Patient unable to answer Attends Club or Organization Meetings: Patient unable to answer Marital Status: Patient unable to answer Intimate Partner Violence: Patient Unable To Answer (11/28/2024) Received from [facility] Medical Domestic Abuse Assessment Do you feel [...] nursing note reviewed. Exam conducted with a vehicle operator present. Constitutional: General: He is not in [...] [facility] (Per Emergency Physician): Interpretation per [...] accidental dislodgment of his tracheostomy tube at [facility] as described in the HPI. Reportedly [...] Ponce recommended ICU admission to [facility] for observation with possible replacement tracheostomy if needed. ICU at [facility] was consulted and I spoke with Dr. Nguyen regarding admission to their service. He agrees with this indication and patient admitted to [facility] ICU. Diagnoses as of 01/19/25299 Complication of tracheostomy ([facility]) ([facility]) Medications - No data to display REVAL: [...] No FINAL IMPRESSION 1. Complication of tracheostomy ([facility]) ([facility]) DISPOSITION Admit 01/19/2025 03:00:18 AM PATIENT REFERRED [...] signed) Emergency Medicine Provider Lazaro Rojo MD 01/19/25300 Pt arrived Via EMS from [facility]. Pt removed his trach which he is typically on 5L. 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 He is NPO and receiving IV antibiotics for the results of his blood cultures. Pt was recently transferred to [place] from [facility]. Pt arrived with a pressure of 88/52 and 96% on room air. RT and MD at bedside upon arrival. documented in this encounter [facility] 01-18-2025 History of Presen t illness Narrative [facility] documented in this encounter [facility] 01-17-2025 History of Presen t illness Narrative Seen at [facility] documented in this encounter [facility] 01-17-2025 History of Presen t illness Narrative [facility] documented in this encounter [facility] 01-16-2025 History of Presen t illness Narrative [facility] documented in this encounter [facility] 01-15-2025 History of Presen t illness Narrative Seen at [facility] documented in this encounter [facility] 01-15-2025 History of Presen t illness Narrative [facility] documented in this encounter [facility] 01-14-2025 History of Presen t illness Narrative [facility] documented in this encounter [facility] 01-12-2025 History of Presen t illness Narrative [facility] documented in this encounter [facility] 01-12-2025 History of Presen t illness Narrative Seen at [facility] documented in this encounter [facility] 01-11-2025 History of Presen t illness Narrative [facility] documented in this encounter [facility] 01-11-2025 History of Presen t illness Narrative Seen at [facility] documented in this encounter [facility] 01-10-2025 History of Presen t illness Narrative [facility] documented in this encounter [facility] 01-09-2025 History of Presen t illness Narrative [facility] documented in this encounter [facility] 01-09-2025 History of Presen t illness Narrative Seen at [facility] documented in this encounter [facility] 01-08-2025 History of Presen t illness Narrative [facility] documented in this encounter [facility] 01-08-2025 History of Presen t illness Narrative Seen at [facility] documented in this encounter [facility] 01-05-2025 History of Presen t illness Narrative Patient seen by me at [facility]. Documentation including history, exam and plan documented in [facility]. This encounter is for billing only. documented in this encounter [facility] 01-05-2025 History of Presen t illness Narrative [facility] 01/05 documented in this encounter [facility] 01-04-2025 History of Presen t illness Narrative Patient seen by me at [facility]. Documentation including history, exam and plan documented in [facility] EMR. This encounter is for billing only. documented in this encounter [facility] 01-04-2025 History of Presen t illness Narrative [facility] 01/04 documented in this encounter [facility] 01-03-2025 History of Presen t illness Narrative Patient seen by me at [facility]. Documentation including history, exam and plan documented in [facility] EMR. This encounter is for billing only. documented in this encounter [facility] 01-03-2025 History of Presen t illness Narrative Pt seen at [facility]. Complete documentation under [facility]s EMR. documented in this encounter [facility] 01-02-2025 History of Presen t illness Narrative Pt seen at [facility]. Complete documentation under [facility] EMR. documented in this encounter [facility] 01-02-2025 History of Presen t illness Narrative Patient seen by me at [facility]. Documentation including history, exam and plan documented in [facility] EMR. This encounter is for billing only. documented in this encounter [facility] 01-01-2025 History of Presen t illness Narrative Pt seen at [facility]. Complete documentation under [facility] EMR. documented in this encounter [facility] 01-01-2025 History of Presen t illness Narrative Patient seen by me at [facility]. Documentation including history, exam and plan documented in [facility] EMR. This encounter is for billing only. documented in this encounter [facility] 01-01-2025 History of Presen t illness Narrative Subsequent visit today at [facility] documented in this encounter [facility] 12-30-2024 History of Presen t illness Narrative Pt seen at [facility]. Complete documentation under [facility]'s EMR. documented in this encounter [facility] 12-28-2024 History of Presen t illness Narrative Patient seen by me at [facility]. Complete documentation including history with assessment and plan were documented in [facility] EMR. This encounter is for billing only. documented in this encounter [facility] 12-27-2024 History of Presen t illness Narrative Patient seen by me at [facility]. Complete documentation including history with assessment and plan were documented in [facility] EMR. This encounter is for billing only. documented in this encounter [facility] 12-26-2024 History of Presen t illness Narrative Patient seen by me at [facility]. Complete documentation including history with assessment and plan were documented in [facility] EMR. This encounter is for billing only. documented in this encounter [facility] 12-22-2024 History of Presen t illness Narrative Patient seen by me at [facility] in [place]. Complete documentation including history with assessment and plan were documented in [facility] EMR. This encounter is for billing only. documented in this encounter [facility] 12-21-2024 History of Presen t illness Narrative Patient seen by me at [facility] in [place]. Complete documentation including history with assessment and plan were documented in [facility] EMR. This encounter is for billing only. documented in this encounter [facility] 12-20-2024 History of Presen t illness Narrative Patient seen by me at [facility] in [place]. Complete documentation including history with assessment and plan were documented in [facility] EMR. This encounter is for billing only. documented in this encounter [facility] 12-19-2024 History of Presen t illness Narrative Patient seen by me at [facility] in [place]. Complete documentation including history with assessment and plan were documented in [facility] EMR. This encounter is for billing only. documented in this encounter [facility] 12-18-2024 History of Presen t illness Narrative Patient seen by me at [facility] in [place]. Complete documentation including history with assessment and plan were documented in [facility] EMR. This encounter is for billing only. documented in this encounter [facility] 12-15-2024 History of Presen t illness Narrative [facility] billing documented in this encounter [facility] 12-14-2024 History of Presen t illness Narrative [facility] billing documented in this encounter [facility] 12-14-2024 Telephone encount er Note Patient is still at [facility] I spoke to Karla, nurse outreach case manager, and she stated that patient has a tentative discharge date on 12/25. He will be going to a facility after that. Karla is not sure which one. I will check back with her closer to that date. [facility] 12-14-2024 Miscellaneous Notes Formattin g of this note might be different from the original. Patient is still at [facility] I spoke to Karla, nurse outreach case manager, and she stated that patient has a tentative discharge date on 12/25. He will be going to a facility after that. Karla is not sure which one. I will check back with her closer to that date. Called and spoke with patients son to discuss scheduling hospital follow up appointment. Omar advised me that the patient will be in the hospital 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 as a lot happened while he was hospitalized. Patient does not wish to schedule at this time. Thanks Attempted to call patient to schedule hospital follow up. Patients phone is restricted. Unable to lvm. Sent [employer] message. Thanks Will hold to contact patient s/p discharge. Thanks Pt remains admitted at this time. GI staff to contact pt for scheduling OV s/p discharge. Patient needs close follow up for repeat EGD for duodenal ulcer, had IR embolization of GDA. Currently in ICU. Thanks. documented in this encounter [facility] 12-13-2024 History of Presen t illness Narrative [facility] documented in this encounter [facility] 12-13-2024 Telephone encount er Note Called and spoke with patients son to discuss scheduling hospital follow up appointment. Omar advised me that the patient will be in the hospital 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 as a lot happened while he was hospitalized. Patient does not wish to schedule at this time. Thanks [facility] 12-13-2024 Miscellaneous Notes Formattin g of this note might be different from the original. Called and spoke with patients son to discuss scheduling hospital follow up appointment. Omar advised me that the patient will be in the hospital 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 as a lot happened while he was hospitalized. Patient does not wish to schedule at this time. Thanks Attempted to call patient to schedule hospital follow up. Patients phone is restricted. Unable to lvm. Sent [employer] message. Thanks Will hold to contact patient s/p discharge. Thanks Pt remains admitted at this time. GI staff to contact pt for scheduling OV s/p discharge. Patient needs close follow up for repeat EGD for duodenal ulcer, had IR embolization of GDA. Currently in ICU. Thanks. documented in this encounter [facility] 12-12-2024 History of Presen t illness Narrative [facility] documented in this encounter [facility] 12-11-2024 History of Presen t illness Narrative Seen at [facility] 12/11/24 documented in this encounter [facility] 12-11-2024 History of Presen t illness Narrative [facility] documented in this encounter [facility] 12-11-2024 Telephone encount er Note Attempted to call patient to schedule hospital follow up. Patients phone is restricted. Unable to lvm. Sent MyChart message. Thanks [facility] 12-11-2024 Miscellaneous Notes Formattin g of [...] in ICU. Thanks. documented in this encounter [facility] 12-07-2024 History of Presen t illness Narrative [facility] documented in this encounter [facility] 12-07-2024 History of Presen t illness Narrative [facility] 12/07/24 documented in this encounter [facility] 12-06-2024 History of Presen t illness Narrative [facility] documented in this encounter [facility] 12-06-2024 History of Presen t illness Narrative [facility] ([facility]) 12/06/[address] encounter [facility] 12-05-2024 History of Presen t illness Narrative [facility] documented in this encounter [facility] 12-04-2024 History of Presen t illness Narrative Follow-up visit today at [facility] documented in this encounter [facility] 12-04-2024 History of Presen t illness Narrative [facility] ([facility] 12/04/24 documented in this encounter [facility] 12-01-2024 History of Presen t illness Narrative [facility] ([facility] 12/01/[address] this encounter [facility] 12-01-2024 History of Presen t illness Narrative I did a level 4 consult on this patient [facility]. In reviewing Dr. Garcia's note she noted acute systolic right heart failure related to and accompanied by pulmonary hypertension. She noted the need for midodrine. Dr. Chow waited on atrial flutter and atrial tachycardia. He was put on amiodarone and attempt was YG cardioversion, unsuccessful. The last electrocardiogram done at the [facility] showed atrial flutter. documented in this encounter [facility] 12-01-2024 History of Presen t illness Narrative [facility] documented in this encounter [facility] 11-30-2024 History of Presen t illness Narrative [facility] documented in this encounter [facility] 11-30-2024 History of Presen t illness Narrative [facility] 11/30/24 documented in this encounter [facility] 11-29-2024 History of Presen t illness Narrative [facility] 11/29/24 documented in this encounter [facility] 11-29-2024 History of Presen t illness Narrative [facility] documented in this encounter [facility] 11-28-2024 Telephone encount er Note Name of Caller: Herminia Contact Physician requesting Consult: Michelle Caruso APRN Patient Location (facility name, room, bed number): [facility] 116 Patient Diagnosis/Reason for Consult:SOB Provider being paged: Dr Nathan Time page was sent: [phone] Department of provider being paged: [facility] Page Content: routine consult requested. Message sent via Secure Chat [facility] 11-28-2024 Miscellaneous Notes Formattin g of this note might be different from the original. Name of Caller: Herminia Contact Physician requesting Consult: Michelle Caruso APRN Patient Location (facility name, room, bed number): [facility] 116 Patient Diagnosis/Reason for Consult:SOB Provider being paged: Dr Nathan Time page was sent: [phone] Department of provider being paged: [facility] Page Content: routine consult requested. Message sent via Secure Chat documented in this encounter [facility] 10-17-2024 Telephone encount er Note Will hold to contact patient s/p discharge. Thanks [facility] 10-17-2024 Miscellaneous Notes Formattin g of this note might be different from the original. Will hold to contact patient s/p discharge. Thanks Pt remains admitted at this time. GI staff to contact pt for scheduling OV s/p discharge. Patient needs close follow up for repeat EGD for duodenal ulcer, had IR embolization of GDA. Currently in ICU. Thanks. documented in this encounter [facility] 10-17-2024 Miscellaneous Notes Formattin g of this note might be different from the original. Will hold to contact patient s/p discharge. Thanks Pt remains admitted at this time. GI staff to contact pt for scheduling OV s/p discharge. Patient needs close follow up for repeat EGD for duodenal ulcer, had IR embolization of GDA. Currently in ICU. Thanks. documented in this encounter [facility] 10-17-2024 Telephone encount er Note Pt remains admitted at this time. GI staff to contact pt for scheduling OV s/p discharge. [employer] 10-16-2024 Telephone encount er Note Patient needs close follow up for repeat EGD for duodenal ulcer, had IR embolization of GDA. Currently in ICU. Thanks. [employer] Work Phone: 10-16-2024 Miscellaneous Notes Formattin g of this note might be different from the original. Patient needs close follow up for repeat EGD for duodenal ulcer, had IR embolization of GDA. Currently in ICU. Thanks. documented in this encounter [facility] [employer] 10-12-2024 Note Formatting of this n ote is different from the original. Patient: Jair Snyder Procedure Summary Date: 10/12/24 Room / Location: [facility] Operating Room Anesthesia Start: 725 Anesthesia [...] once all PACU criteria has been met. [facility] 10-12-2024 Miscellaneous Notes Formattin g of this note is different from the original. Patient: Jair Snyder Procedure Summary Date: 10/12/24 Room / Location: [address] Operating Room Anesthesia Start: 725 Anesthesia [...] has been met. documented in this encounter [facility] 10-12-2024 Anesthesiology Postoperative evaluation and management note Patient: Jair Snyder Procedure Summary Date: 10/12/24 Room / Location: [address] Operating Room Anesthesia Start: 725 Anesthesia [...] opportunity for questions and acknowledgement of understanding. [employer] Phone: 10-12-2024 Surgical operatio n note Patient: Jair Snyder Procedure Summary Date: 10/12/24 Room / Location: [facility] Operating Room Anesthesia Start: 725 Anesthesia [...] during the procedure: no complications. Staffing Performed: BOOM SUPERVISOR Resident/BOOM SUPERVISOR: Rudolph German CRNA Associated Order(s): Airway Airway Date/Time: 10/12/2024 7:38 AM Urgency: scheduled Airway not difficult General Information and Staff Patient location during procedure: Procedural Anesthesiologist: Vincent Wilson MD Resident/BOOM SUPERVISOR: Rudolph German CRNA Performed: anesthesiologist Indications and [...] procedure well with no complications. Staffing Performed: BOOM SUPERVISOR Resident/BOOM SUPERVISOR: Rudolph German CRNA Patient: Jair Snyder Procedure Information Date/Time: 10/12/2430 Procedures: AORTIC VALVE REPAIR, POSSIBLE REPLACEMENT (Chest) - 7:30 am, 5 hours TRICUSPID REPLACEMENT WITH RING (Chest) TRANSESOPHAGEAL ECHOCARDIOGRAM Location: [address] Operating Room Surgeons: Luciano Montemayor MD [...] aortic valve stenosis 08/18/2023: Paroxysmal A-fib (CMS/HCC) ([facility]) 10/08/2023: Tobacco abuse Past Surgical History: Past Surgical History: No date: APPENDECTOMY 10/09/2024: CARDIAC CATHETERIZATION; N/A Comment: Performed by Bob Watson MD at [facility] Cardiac Cath/EP Lab 09/15/2021: FISTULAGRAM (HISTORICAL); Left Comment: LEFT UPPER ARM No date: HX AV FISTULA CREATION 08/07/2022: IR FISTULAGRAM Comment: IR FISTULAGRAM 08/07/2022 [facility] IR IMAGING No date: [...] Additional Equipment Requests documented in this encounter [facility] 10-12-2024 Procedure anesthe jaki Narrative Procedure [...] Drift Start 0902 HC (UF) Start 0930 Ainbal Patient on dial ysis; Anuric 0934 Drift [...] Arterial Line Placement Date: 10/12/24; Placement Time: 07 (created via procedure documentation); Size: 20 G; Orientation: Right; Location: Radial; Securement: Taped; Patient Tolerance: Tolerated well; Removal Date: 10/16/24; Removal Time: 0930; Removal Reason: Per order 10/12/24 07 by Rudolph German CRNA 10/16/24 09 by Wanda Hays RN ETT Placement Date: [...] Hunter Dove RN [id number] Anesthesiology procedure note* Anesthesia Procedure Notes - [...] during the procedure: no complications. Staffing Performed: BOOM SUPERVISOR Resident/BOOM SUPERVISOR: Rudolph German CRNA [facility] [id number] Anesthesiology procedure note* Anesthesia Procedure Notes - Rudolph German CRNA - 10/12/2024 7:49 AM ESTAssociated Order(s): Airway Airway Date/Time: 10/12/2024 7:38 AM Urgency: scheduled Airway not difficult General Information and Staff Patient location during procedure: Procedural Anesthesiologist: Vincent Wilson MD Resident/BOOM SUPERVISOR: Rudolph German CRNA Performed: anesthesiologist Indications and [...] 21 Number of attempts at approach: 1 [facility] [id number] Anesthesiology procedure note* Anesthesia Procedure Notes - [...] procedure well with no complications. Staffing Performed: BOOM SUPERVISOR Resident/BOOM SUPERVISOR: Rudolph German CRNA [facility]afgjo24-02-1107 Anesthesiology Preoperative evaluation and management note* Anesthesia Preprocedure Evaluation - Vincent Wilson MD - 10/12/2024 6:56 AM EST Patient: Jair Snyder Procedure Information Date/Time: 10/12/24 0730 Procedures: AORTIC VALVE REPAIR, POSSIBLE REPLACEMENT (Chest) - 7:30 am, 5 hours TRICUSPID REPLACEMENT WITH RING (Chest) TRANSESOPHAGEAL ECHOCARDIOGRAM Location: [facility] OR [address] [place] [address] Operating Room Surgeons: Luciano Montemayor MD Relevant [...] aortic valve stenosis 08/18/2023: Paroxysmal A-fib (CMS/HCC) ([facility]) 10/08/2023: Tobacco abuse Past Surgical History: Past Surgical History: No date: APPENDECTOMY 10/09/2024: CARDIAC CATHETERIZATION; N/A Comment: Performed by Bob Watson MD at [facility] Cardiac Cath/EP Lab 09/15/2021: FISTULAGRAM (HISTORICAL); Left [...] Anesthetic plan and risks discussed with patient. MIZTI Screening Labs: Lab Results Component Value Date [...] 10:45 AM Equipment Requests: Additional Equipment Requests [id number] History of Present illness Narrative* Jr Shah MD - 08/28/2024 3:15 PM EST Images from the original note were not included. [facility] CARDIOLOGY - [place] [address] [place] [address] [address] [facility] [address] Dept: [phone] Dept Visit type: Established : 1965 Reason [...] months (around 02/26/2025) for [facility] f/u in [place]. Subjective Afib after admission 07/2023. ESRD on [...] On theother hand, a mechanical valve with usp OAC carries its own risks with a [...] none/quit. Pt would like to f/u in [place]. Was concerned about location and level of [...] Date Acute renal failure (ARF) ([facility]) 10/19/2019 Anemia 12/30/2021 Calcification of abdominal aorta ([facility]) 10/08/202309/[address] abd Diverticulosis 10/08/2023 [place] hemod[place] ([facility]) 10/26/2019 Hemodialysis patient [place] ([facility]) HTN (hypertension) 12/01/2022 Hypertension IgA nephropathy IgA nephropathy determined by biopsy of kidney 10/26/2019 Missed vaccination due to patient refusal 10/08/2023 Has a number of non-scientific based beliefs which interfere with his understanding and acceptance of the medical benefit of vaccination. Nonrheumatic aortic valve stenosis 10/08/2023 Paroxysmal A-fib ([facility] ([facility]) 08/18/2023 Tobacco abuse 10/08/2023 Social History Tobacco [...] due to addiction and risk of bleeding. [id number] Evaluation + Plan note* Assessment & Plan Note - Jr Shah MD - 08/28/2024 1:07 PM ESTAssociated Problem(s): Tobacco abuse 1 ppd. Recommend complete cessation. -Recommend CT lung cancer screening. [facility] [id number] Miscellaneous Notes* Assessment & Plan Note - [...] which will need to be carefully considered. [facility] [id number] Evaluation + Plan note* Assessment & Plan [...] see EP, discuss ablation, watchman device, etc. [facility] [id number] History of Present illness Narrative* Alan Barroso RN - 05/10/2024 2:38 PM EDT Dialysis center status inquiry form received from [facility]. Form completed and faxed back to ELIA Marin at [phone]. Patient was called 04/12/2024 but voicemail was full, letter was sent to please call the office at [phone] to complete intake. Referral was closed. Please have patient call the office to complete intake. JHONY Meier RN May 10, 2024 2:41 PM [facility] Tele[facility] encounter Note * Telephone Encounter - Lanie Luis - 04/12/2024 11:49 AM EDT I called patient to start the kidney referral intake process. Voicemail is full, sent a letter out. [facility]07-17-2024 Miscellaneous Notes* Telephone Encounter - Lanie Luis - 04/12/2024 11:49 AM EDT I called patient to start the kidney referral intake process. Voicemail is full, sent a letter out. Lanie [facility] Telephone encounter Note * Telephone Encounter - Tracie Chin RN - 02/14/2024 10:23 AM EDT Called LM with pt with central scheduling number. Advised to call to schedule echo. [facility]Cadgkg65-66-1396 Miscellaneous Notes* Telephone Encounter - Tracie Chin [...] and sent mychart message for echo [facility] [id number] Miscellaneous Notes* Telephone Encounter - Dorcas Pabon - 02/12/2024 10:28 AM EDT Unable to contact patient - called and lvm and sent mychart message for echo [facility] documented [facility] this [facility]05-18-[facility] Telephone encounter Note* Telephone Encounter - Dorcas Pabon - 02/12/2024 10:23 AM EDT Unable to contact patient to schedule CT lung screening - called and sent mychart message [facility] [id number] Miscellaneous Notes* Telephone Encounter - Dorcas Pabon - 02/12/2024 10:23 AM EDT Unable to contact patient to schedule CT lung screening - called and sent mychart message [facility] documented in this [facility]02-16-[facility]24 Evaluation + Plan note* Assessment & Plan Note - DENIA Dumont CNP - 11/12/2023 4:50 PM EST Associated Problem(s): Tobacco abuse 1 ppd. Recommend complete cessation. Consider CT lung cancer screening. [place] [id number] Miscellaneous Notes* Assessment & Plan Note - [...] improved with moderate intensity statins. -expectant mgt [facility]Rkjqff80-59-4287 Evaluation + Plan note* Assessment & Plan Note - DENIA Dumont CNP - 11/12/2023 4:48 PM ESTAssociated Problem(s): HTN (hypertension) Goal BP < 130/80 mmHg. BP today in office borderline. -continues on toprol XL -mgt per PCP and renal [facility]02-16-2024 Evaluation + Plan note* Assessment [...] cardiac intervention that he is open to. [place] [id number] Evaluation + Plan note* Assessment & Plan [...] dose overall, rather than just dialysis days. [facility] HospitalEzduza01-23-1077 History of Present illness Narrative* DENIA Dumont CNP - 11/12/2023 1:30 PM EST Images from the original note were not included. [facility] [address] [place] [address] [address] [facility] [address] Dept: [phone] Dept Loc: [phone] Visit type: Established : 1965 Reason for [...] is open to. 2. Paroxysmal A-fib (CMS/HCC) ([facility]) Assessment & Plan: Paroxysmal. Refer to Dr. [...] the other hand, a mechanical valve with 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 OAC carries its own risks. Today: He comes in to discuss episodes of a fib during HD. HD on T Sat. He is Oliguric. When he goes [...] Date Acute renal failure (ARF) ([facility]) 10/19/2019 Anemia 12/30/2021 Calcification of abdominal aorta ([facility]) 10/08/202309/[address] abd Diverticulosis 10/08/2023 ESRD [place] hemodialysis [place] ([facility]) 10/26/2019 Hemodialysis patient [place] ([facility]) HTN (hypertension) 12/01/2022 Hypertension IgA nephropathy IgA nephropathy determined by biopsy of kidney 10/26/2019 Missed vaccination due to patient refusal 10/08/2023 Has a number of non-scientific based beliefs which interfere with his understanding and acceptance of the medical benefit of vaccination. Nonrheumatic aortic valve stenosis 10/08/2023 Paroxysmal A-fib ([facility]) ([facility]) 08/18/2023 Tobacco abuse 10/08/2023 Social History Tobacco [...] Dumont CNP documented in this encounterSSelect [facility], AvonWydtpy44-08-2573 Telephone encounter Note* Telephone Encounter - Sydni Rodrigues - 11/01/2023 9:41 AM EST Called pt lmom for a return call to set up appt [facility]Dklggt59-75-3954 Miscellaneous Notes* Telephone Encounter - Sydni Rodrigues [...] 10/14/2023 7:58 AM EST Preferred contact number: [phone] Reason for Visit: Jun called in to cancel his appt this morning. He woke up and is very sick. Please contact him to reschedule. Urgency of Appointment: office visit documented in this encounterSSelect Medical [facility], AvonZqgsyw71-47-3978 Telephone encounter Note* Telephone Encounter - Sydni Rodrigues - 10/18/2023 2:34 PM EST Called pt LMOM for a return call to set up appt [facility] HospitalQrptfz18-37-2391 Telephone encounter Note* Telephone Encounter - Sydni Rodrigues - 10/14/2023 8:56 AM EST Called pt LMOM for a return call to r/s appt [facility] HospitalFcwcnb20-42-0302 Telephone encounter Note* Telephone Encounter - Regino Ortiz - 10/14/2023 7:58 AM EST Preferred contact number: [phone] Reason for Visit: Jun called in to cancel his appt this morning. He woke up and is very sick. Please contact him to reschedule. Urgency of Appointment: office visit [facility] HospitalKvezaf48-64-4964 Telephone encounter Note* Telephone Encounter - Darya Payne - 08/23/2023 1:47 PM EST 2nd attempt to schedule, no answer, left message. [facility] HospitalHpvwly15-96-6856 Miscellaneous Notes* Telephone Encounter - Daryabernadette Payne - 08/23/2023 1:47 PM EST 2nd attempt to schedule, no answer, left message. * Telephone Encounter - Daryabernadette Payne - 08/18/2023 2:13 PM EST Left message requesting a call back from the patient to schedule appointment. * Telephone Encounter - Darya Payne - 08/18/2023 2:12 PM EST ----- Message from DENIA Dumont CNP sent at 08/18/2023 8:30 AM EST ----- Patient discharged from [facility]. Please assist with s/p hosp "[facility]," okay within the next ~week. Thanks! documented in this [facility]11[facility] Telephone encounter Note* Telephone Encounter - Darya Payne - 08/18/2023 2:13 PM EST Left message requesting a call back from the patient to schedule appointment. [facility] HospitalKngdem79-89-4067 Telephone encounter Note* Telephone Encounter - Darya Kerry - 08/18/2023 2:12 PM EST ----- Message from Quiana Contreras APRN - SECURITY VEHICLE PATROL OFFICER sent at 08/18/2023 8:30 AM EST ----- Patient discharged from [facility]. Please assist with s/p hosp "[facility]," okay within the next ~week. Thanks! [place] [id number] Emergency department Note* Mary Ann Meraz RN - 08/17/2023 3:11 PM EST Patient education given in regard to medications, as well as following-up with PCP. Patient given eliquis information packet, understanding well. Mary Ann Meraz RN 08/17/23 [address] [place] [id number] Emergency department Note* Mary Ann Meraz RN - 08/17/2023 3:11 PM EST Patient education given in regard to medications, as well as following-up with PCP. Patient given eliquis information packet, understanding well. Mary Ann Meraz RN 08/17/23 1511 * Dangelo Horne DO - 08/16/2023 6:16 PM EST Emergency Department Encounter [facility] ED Patient: Jun Snyder [...] 08/16/2023 6:16 PM EST Emergency Department Encounter [facility] ED Patient: Jun Snyder [...] Past Medical History: Diagnosis Date Hemodialysis patient ([facility]) (HCC) Hypertension Past Surgical History: Procedure Laterality Date APPENDECTOMY FISTULAGRAM (HISTORICAL) Left 09/15/2021 LEFT UPPER ARM HX AV FISTULA CREATION IR FISTULAGRAM 08/07/2022 IR FISTULAGRAM 08/07/2022 [facility] IR IMAGING TONSILLECTOMY (HISTORICAL) [...] gross facial drooping. No obvious neurologic deficits. Box Truck Owner Operator strength symmetrical. Moves all 4 extremities [...] 364 ms QTC Interval 491 ms P Vandiver degrees QRS Vandiver 61 degrees T Wave Vandiver -20 degrees CO Interval ms Radiographs: XR chest 1 view Final Result 1. Cardiomegaly. 2. No other acute findings. Report Dictated on Electronically Signed By: Justo Milan MD Electronically Signed Date/Time: 08/16/2023 6:42 PM EST : EKG: All EKG's areinterpreted by the Emergency Department Physician in the absence of a helmet hat brim cutter. see their note for interpretation of EKG. [...] for new onset A-fib. Patient except[facility] to [facility]. Final Diagnosis: 1. New onset a-fib (CMS/HCC) (HCC) Medications - No data to display Diagnoses as of 08/16/232129 New onset a-fib (CMS/HCC) (HCC) CRITICAL CARE TIME CONSULTS: None PROCEDURES: Unless otherwise noted below, none Procedures DISPOSITION/PLAN Admit 08/16/2023 08:09:48 PM PATIENT REFERRED TO: No follow-up provider specified. DISCHARGE MEDICATIONS: New Prescriptions No medications on file @[facility]([id number]:LAST:1)@ (Please note: Portions of this note were completed with a voice recognition program. Efforts were made to edit the dictations but occasionally words and phrases are mis-transcribed.) Form [id number] Sha Granados PA-C Acute Care [facility] Sha Granados PA-C 08/16/232129 documented in this [facility]11[facility] Hospital Discharge instructions* Discharge Instr - Other Orders* DENIA Lorenzo CNP - 08/17/2023 3:02 PM EST Please discontinue Labetalol and Caduet; see discharge medication list Next dialysis session is 08/18/23 as previously instructed * Attachments The following attachments cannot be sent through Care Everywhere. * Atrial Fibrillation (Northern Irish) * Going Home on Blood Thinners ([place]) * Apixaban, ADULT ([place] Irish) documented in this [facility]11[facility]2023 History of [...] Past Medical History: Diagnosis Date Hemodialysis patient ([facility]) (HCC) Hypertension IgA nephropathy LABS: CBC: Recent Labs 08/16/231842 WBC 9.5 RBC 4.60 HGB 14.5 HCT 41.6 MCV 90.5 RDW 14.7* PLT 254 BMP: Recent Labs 08/16/23 18408/17/23 0058 NA 133* 134* K 4.5 5.0 [...] 72 hours. CARDIAC ENZYMES: Recent Labs 08/16/23 18408/16/23 2200 08/17/23 0058 TROPONINI 0.037* 0.062* 0.094* [...] Primary Emergency Contact: Alexx Snyder Address: [address] [place] [address] [facility] Jae Mobile Relation: Child DENIA Lorenzo CNP Division of Hospitalist Medicine Inpatient Medical Services/[facility] Comment: Please note this report [...] AM ESTAssociated Order(s): IP CONSULT TO CARDIOLOGY [facility] CARDIOLOGY CONSULTATION Patient Name: Jun Snyder : [...] left heart disease. Rj Villela M.D., F.A.C.C. Blending Plant Operator Chief, Division of Cardiac Imaging Clinical Tool Chaser, [facility] Data Collection Cardiac Testin08/16/23 ECG 12-LEAD 08/17/2023 [...] a past medical history of Hemodialysis patient ([facility]) (HCC), Hypertension, and IgA nephropathy. He has [...] alert. Psychiatric: Mood and Affect: Mood normal. [employer] Work Phone: 1(176) 805-871211-21-2023 Consult note* Rj Villela MD - 08/17/2023 10:16 AM ESTAssociated Order(s): IP CONSULT TO CARDIOLOGY [employer] CARDIOLOGY CONSULTATION Patient Name: Jun Snyder : 1965 Date of Service: 08/17/23 Reason for Consultation: A-fib History uJn Snyder is a 57 y.o.year-old male with [...] left heart disease. Rj Villela M.D., F.A.C.C. Blending Plant Operator Chief, Division of Cardiac Imaging Clinical Tool Chaser, [facility] Data Collection Cardiac Testin08/16/23 ECG 12-LEAD 08/17/2023 [...] a past medical history of Hemodialysis patient ([facility]/H[facility]) (HCC), Hypertension, and IgA nephropathy. He [...] note were not included. History and Physical [facility] Jun Snyder : 1965 AGE [...] WedAug 16, 2023 8:09 PM (Active) Physician Flight Crew Scheduler: Sha Granados PA-C, starting on WedAug 16, [...] him When he was getting dialysis his crts detected irregular rhythm suspected A-fib and referred [...] Past Medical History: Diagnosis Date Hemodialysis patient ([facility]) (HCC) Hypertension IgA nephropathy Past Surgical History: [...] 08/16/2023 364 QTC Interval 08/16/2023 491 QRS Vandiver 08/16/2023 61 T Wave Vandiver 08/16/2023 -20 SODIUM 08/16/2023 133 (L) POTASSIUM [...] QT Interval 364 QTC Interval 491 P Vandiver QRS Vandiver 61 T Wave Vandiver -20 CO Interval Impression ATRIAL FIBRILLATION, V-RATE 88-139 INCOMPLETE [...] Anticoagulation yet to be determined His current [id number] score would be 1 based upon history [...] to due risk bleed/procedure 08/16/2023 Jun Snyder [id number] Any scheduled follow up appointments No future appointments. Extended Emergency Contact Information Primary Emergency Contact: LillianAlexx givens [address]: [address] [place] [address] [place] Relation: Child Portions of this note may be electronically transcribed. Please forward a copy of this H&P to the primary care physician. [facility] [id number] History and physical note* Earlene Irving MD - 08/16/2023 8:38 PM EST Images from the original note were not included. History and Physical [facility] Jun Snyder : 1965 AGE [...] WedAug 16, 2023 8:09 PM (Active) Physician Flight Crew Scheduler: Sha Granados PA-C, starting on WedAug 16, [...] him When he was getting dialysis his crts detected irregular rhythm suspected A-fib and referred [...] Past Medical History: Diagnosis Date Hemodialysis patient ([facility]) (HCC) Hypertension IgA nephropathy Past Surgical History: [...] 08/16/2023 364 QTC Interval 08/16/2023 491 QRS Vandiver 08/16/2023 61 T Wave Vandiver 08/16/2023 -20 SODIUM 08/16/2023 133 (L) POTASSIUM [...] QT Interval 364 QTC Interval 491 P Vandiver QRS Vandiver 61 T Wave Vandiver -20 CO Interval Impression ATRIAL FIBRILLATION, V-RATE 88-139 INCOMPLETE [...] monitor him on telemetry asked cardiology to [facility] we will additionally request echocardiogram. He is not experiencing chest pain but he is a current smoker and I do not see a recent cardiac work-up in the computer EKG on admission did confirm atrial fibrillation but he is currently in sinus rhythm Anticoagulation yet to be determined His current [id number] score would be 1 based upon history [...] to due risk bleed/procedure 08/16/2023 Jun Snyder [id number] Any scheduled follow up appointments No future appointments. Extended Emergency Contact Information Primary Emergency Contact: Alexx Snyder Address: [facility] [facility] [place] [address] [place] Relation: Child Portions of this note may be electronically transcribed. Please forward a copy of this H&P to the primary care physician. documented in this [facility]11-20-2023 Physician Emergency department Note* Dangelo Horne DO - 08/16/2023 6:16 PM EST Emergency Department Encounter [facility] ED Patient: Jun Snyder [...] Horne DO 08/16/231922 Dangelo Horne DO 08/16/231957 [employer] Phone: 1(789) 787-111011-20-2023 Physician Emergency department Note* Sha Granados PA-C - 08/16/2023 6:16 PM EST Emergency Department Encounter [facility] ED Patient: Jun Snyder [...] gross facial drooping. No obvious neurologic deficits. Box Truck Owner Operator strength symmetrical. Moves all 4 extremities [...] 364 ms QTC Interval 491 ms P Vandiver degrees QRS Vandiver 61 degrees T Wave Vandiver -20 degrees CO Interval ms Radiographs: XR chest 1 view Final Result 1. Cardiomegaly. 2. No other acute findings. Report Dictated on Electronically Signed By: Justo Milan MD Electronically Signed Date/Time: 08/16/2023 6:42 PM EST : EKG: All EKG's areinterpreted by the Emergency Department Physician in the absence of a helmet hat brim cutter. see their note for interpretation of EKG. [...] for new onset A-fib. Patient excepted to [facility]. Final Diagnosis: 1. New onset a-fib (CMS/HCC) ([facility]) Medications - No data to display Diagnoses as of 08/16/232129 New onset a-fib (CMS/HCC) ([facility]) CRITICAL CARE TIME CONSULTS: None PROCEDURES: Unless otherwise noted below, none Procedures DISPOSITION/PLAN Admit 08/16/2023 08:09:48 PM PATIENT REFERRED TO: No follow-up provider specified. DISCHARGE MEDICATIONS: New Prescriptions No medications on file @[facility]([id number]:LAST:1)@ (Please note: Portions of this note were completed with a voice recognition program. Efforts were made to edit the dictations but occasionally words and phrases are mis-transcribed.) Form [id number] Sha Granados PA-C Acute Care [facility] Sha Granados PA-C 08/16/232129 [facility]08-05-2023 Hospital Discharge instructions* Discharge Instructions* Jese [...] stage renal disease) on dialysis ([facility]) DISPOSITION/PLAN DISPOSITION Discharge 05/01/2023 08:15:56 PM PATIENT REFERRED TO: Daryn Loomis MD [address] [facility] [address] In 1 week [facility] Cardiac, Thoracic and Vascular Specialties [address] [place] [address] [address] [address] I prescribed: New Prescriptions EMOLLIENT [...] that bleeds occasionally. Patient was seen in [facility] a month ago for the same problem. Bed locked and low position, call light within reach. Patient has no further needs. [id number] Physician Emergency department Note* Jese Frank MD [...] Yes Drug use: Never PHYSICAL EXAM Vitals: 08200705/01/232035 BP: (!) 148/82 135/85 BP Location: Right [...] stage renal disease) on dialysis ([facility]): complicated acute illness or injury Skin sore: [...] stage renal disease) on dialysis ([facility]) * No order type specified * MDM: [...] stage renal disease) on dialysis ([facility]) DISPOSITION/PLAN DISPOSITION Discharge 05/01/2023 08:15:56 PM PATIENT REFERRED TO: Daryn Loomis MD [address] [facility] [address] In 1 week [facility] Cardiac, Thoracic [facility] Specialties [phone] Wound Care [address] [address] I prescribed: New Prescriptions EMOLLIENT [...] MD (electronically signed) Jese Frank MD 05/01/232038 [id number] Miscellaneous Notes* Telephone Encounter - Karly Devika Pss - 01/01/2022 2:36 PM EDT I scheduled him w/ Dr. reid on WednesdayFebruary 16 and left him a detailed vm that I did. This is all have at [facility] bc we are in to March and jair needs a Wednesday or Wednesday bc of dialysis I am sorry, I don't have solution or advise for hospital schedule issues. Next best thing is to discuss with Naomi. May be when Dr. King or Marti come in for special cases to [facility], can this case beincluded at that time. Or if you cancel [facility] schedule and make room for me to come to [facility] any day I can get this done. Thanks! * Telephone Encounter - Karly Kumar - 12/30/2021 10:36 AM EDT Antonio I had him scheduled for his colon w/ you for next WednesdayJanuary 05 but Peggy james said he has to be done at [facility] bc of his hgb. I have no openings at [facility] and I don't know what to do Can you please let me know how to proceed. Thank you Eryn PS I NEED A NEW COLON ORDER FOR [facility] Miscellaneous Notes* Telephone Encounter - Karly Fortune [facility] - 12/30/2021 9:33 AM EDT Antonio Painter saw a patient the other day and he ordered him a colon for blood loss anemia I scheduled him for [facility] but his hgb is 6 so Charo wants him at [facility] . He is also on dialysisand could only do a Wednesday. All docs are booked until March You had a cancellation for next . Can I please put him w/ you? Thank you Eryn documented in [facility]04-[facility]-2022 Miscellaneous Notes* Telephone Encounter - Karly Fortune [facility] - 12/29/2021 4:18 PM EDT Antonio I know this patient saw Inocencio the other day as a new patient. I have him scheduled her and his hgb is 6 Could you please do an order for me? I have to get him on tayo Thanks Eryn documented in this [facility]Ber[facility]03-31-2022 History of Present illness Narrative* Rudy [...] for internal providers or letter via the [employer] for external providers. HPI: Jun Snyder is [...] CKD (chronic kidney disease) Dialysis T//Sat @ [facility], Home hemodialysis since 09/2019 Diverticulosis [...] 12/25/21 TIME: 3:56 PM documented in this [facility]Berger [facility]01-31-2020 History of Present illness Narrative* Miracle Jaramillo RN - 10/27/2019 9:00 PM EST Patient left via wheelchair with family member. Pt left with all of documented belongings. * Blane Lei RN - 10/27/2019 2:30 PM EST Patient Name: Glenn Snyder Patient : 1965 Acct: [id number] Date of Admission: 10/19/2019 Room/Bed: 156/1561 Code [...] (Bicarb): 35 Na+ Modeling: Not Applicable Dialyzer: [id number] Dialysate Temperature (C): 36 Blood Flow Rate [...] - Before each treatment: Dialysis Machine No.: [id number] RO Machine No.: [id number] Dialyzer Lot No.: [id number] RO Machine Log Sheet Completed: Yes Machine Alarm Self Test: Completed;Passed (10/27/191409) Machine Autotest: Completed, Passed Air Foam Detector: Tested, Proper Function, pH Reading Extracorporeal Circuit Tested for Integrity: Yes Machine Conductivity: 13.9 Manual Conductivity: 13.7 Machine Ph: 7 Manual Ph: 7 Bleach Test (Neg): Yes Bath Temperature: 96.8 F (36 C) Tubing Lot#: [id number] Conductivity Meter Serial #: [id number] [employer] Secure?: Yes Venous Parameters Set?: [...] Pedraza MD - 10/27/2019 11:26 AM EST [facility] Progress Note SUBJECTIVE: Glenn Snyder [...] never had kidney Bx and never saw crts before BLOSSOM might be from CKD progression [...] . Pt is likely ESRD. Pt on [facility] HD schedule. Last HD session 10/25 Next HD session today Pt has HD spot at [facility]. 2- Hyperkalemia: resolved with HD 3-high anion gap acidosis likely from CKD and BLOSSOM Resolved with HD 4- Hyperphosphatemia: Continue Phosphorus binder 5- HTN: Improved with HD. Continue same BP meds Monitor BP Ok to d/c patient from nephro stand point Will continue to follow Please call if any question at [phone] JEANA PEDRAZA MD 10/27/2019 11:26 AM * [...] never had kidney Bx and never saw crts before BLOSSOM might be from CKD progression [...] follow Please call if any question at [phone] JEANA PEDRAZA MD 10/26/2019 4:25 PM * Kimber Bajwa RN - 10/26/2019 10:46 AM EST Patient returned from renal biopsy. VSS, see record. Bandaide is dry and intact to right flank area. Patient instructed on need for bedrest until 12:45. * Darell Sanches DO - 10/26/2019 8:19 AM EST Hospitalist Progress Note 10/26/2019 8:19 AM [phone]: Please page me ([phone]) for patient care issues. [phone]: Please page [facility] night Hospitalist for any issues. Subjective: [...] lab Plan -daily weights, I&Os, dialysis per crts -renal biopsy and dialysis cath pending, crts following -am labs, replace lytes prn -increase activity -DVT prophylaxis: [] Lovenox [x] Heparin [] SCDs [x] Encourage ambulation [] Already on Anticoagulation Advance Directive: Full Code Discharge planning: Awaiting dialysis cath and renal biopsy. Can be discharge once outpatient dialysis arrangements have been made Darell Sanches DO Division of Hospitalist Medicine Inpatient Medical Services PAGER: [phone] * Ivett Cope RN - 10/25/2019 4:23 [...] and discharge needs Received a call from [employer] regarding pt dialysis chair spot. Was informed [...] 5. 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 Signs and symptoms: as evidenced by Known losses from dialysis, Weight loss, Lab values Objective Information: Nutrition-Focused Physical Findings: appetite improved, no edema, bun 39 , creat 9.71, wbc11.4fleyn5.3,on renvela tid- NO DRY WT EST. off [...] kg)(summer 2018) % Weight Change: , na [place] Body Wt: 166 lb (75.3 kg), % [place] Body 121 Adjusted Body Wt: , body [...] EST Hospitalist Progress Note 10/25/2019 5:02 PM [phone]: Please page me ([phone]) for patient care issues. [phone]: Please page [facility] night Hospitalist for any issues. Subjective: [...] lab Plan -daily weights, I&Os, dialysis per crts -renal biopsy and dialysis cath pending, crts following -am labs, replace lytes prn -increase activity -DVT prophylaxis: [] Lovenox [x] Heparin [] SCDs [x] Encourage ambulation [] Already on Anticoagulation Advance Directive: Full Code Discharge planning: awaiting dialysis cath and renal biopsy Darell Sanches DO Division of Hospitalist Medicine Inpatient Medical Services PAGER: [phone] * Ramon Mei RN - 10/25/2019 11:46 AM EST Patient Name: Glenn Snyder Patient : 1965 Acct: [id number] Date of Admission: 10/19/2019 Room[facility]Bed: [facility] Code Status: Full Code Allergies: [...] (Bicarb): 35 Na+ Modeling: Not Applicable Dialyzer: [id number] Dialysate Temperature (C): 36 Blood Flow Rate [...] - Before each treatment: Dialysis Machine No.: [id number] RO Machine No.: [id number] Dialyzer Lot No.: [id number] RO Machine Log Sheet Completed: Yes Machine Alarm Self Test: Completed;Passed (10/25/19 112) Machine Autotest: Completed, Passed Air Foam Detector: Tested, Proper Function, pH Reading Extracorporeal Circuit Tested for Integrity: Yes Machine Conductivity: 14 Manual Conductivity: 14.1 Machine Ph: 7 Manual Ph: 7 Bleach Test (Neg): Yes Bath Temperature: 96.8 F (36 C) Tubing Lot#: [id number] Conductivity Meter Serial #: [id number] All Connections Secure?: Yes Venous Parameters Set?: Yes Arterial Parameters Set?: Yes Saline Line Double Clamped?: Yes Air Foam Detector Engaged?: Yes Machine Functioning Alarm Free? Yes Prime Given: 200ml Chlorine Testing - Before each treatment and every 4 hours: Treatment Treatment Number: 4 Time On: 1124 Time Off: 1524 Treatment Goal: 2500 Weight: 188 lb 12.8 [...] Communication: Evaluate (10/25/19 1245) Provider Name: Keila (10/25/191244) Provider Notification: Physician (10/25/19 124) Method of Communication: Call (10/25/19 1245) Response: [...] Pedraza MD - 10/25/2019 7:58 AM EST [facility] Progress Note SUBJECTIVE: Glenn Snyder [...] never had kidney Bx and never saw crts before BLOSSOM might be from CKD progression [...] follow Please call if any question at [phone] JEANA PEDRAZA MD 10/25/2019 7:58 AM * [...] EST Hospitalist Progress Note 10/24/2019 11:38 AM [phone]: Please page me ([phone]) for patient care issues. [phone]: Please page [facility] night Hospitalist for any issues. Subjective: [...] the last 72 hours. PT/INR: Recent Labs 10/24/196 PROTIME 11.4 INR 1.1 CARDIAC ENZYMES: No [...] lab Plan -daily weights, I&Os, dialysis per crts -renal biopsy and dialysis cath pending, crts following -am labs, replace lytes prn -increase activity -DVT prophylaxis: [] Lovenox [x] Heparin [] SCDs [x] Encourage ambulation [] Already on Anticoagulation Advance Directive: Full Code Discharge planning: ok to discharge today pending renal biopsy and dialysis cath placement Darell Sanches DO Division of Hospitalist Medicine Inpatient Medical Services PAGER: [phone] * Ivett Cope RN - 10/24/2019 10:48 AM EST Microbiology called, pt has 3x blood cultures drawn on 10/19. One came back with Gram positive rods.[employer] message sent to [facility] Dr Sanches regarding results * Jeana Pedraza [...] never had kidney Bx and never saw crts before BLOSSOM might be from CKD progression [...] follow Please call if any question at [phone] JEANA PEDRAZA MD 10/24/2019 9:15 AM * Radha Foreman RN - 10/23/2019 7:21 PM EST Patient Name: Glenn Snyder Patient : 1965 Acct: [id number] Date of Admission: 10/19/2019 Room/Bed: 222/2225 Code [...] (Bicarb): 35 Na+ Modeling: Not Applicable Dialyzer: [id number] Dialysate Temperature (C): 35 Blood Flow Rate (BFR): 400 Dialysate Flow Rate (DFR): 800 Treatment Treatment Number: 4 Time On: 9 Time Off: 2153 Treatment Goal: 1L Weight: [...] - Before each treatment: Dialysis Machine No.: [id number] Machine No.: [id number] Dialyzer Lot No.: [id number] RO Machine Log Sheet Completed: Yes Machine Alarm Self Test: Completed;Passed (10/23/191709) Machine Autotest: Completed, Passed Air Foam Detector: Tested, Proper Function, pH Reading Extracorporeal Circuit Tested for Integrity: Yes Machine Conductivity: 13.7 Manual Conductivity: 13.6 Machine Ph: 7 Manual Ph: 7 Bleach Test (Neg): Yes Bath Temperature: 95 F (35 C) Tubing Lot#: [id number] Conductivity Meter Serial #: [id number] [employer] Conne[employer] Secure?: Yes Venous Parameters Set?: Yes Arterial Parameters Set?: Yes Saline Line Double Clamped?: Yes Air Foam Detector Engaged?: Yes Machine Functioning Alarm Free? 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 Access Flows [...] Patel MD - 10/23/2019 4:54 PM EST [facility] Progress Note SUBJECTIVE: Glenn Snyder [...] Noted Acute renal failure (ARF) ([facility]) 10/19/2019 ASSESSMENT/PLAN: 1. Renal failure, most likely chronic. Discussed with patient in detail. 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 Currently not working. 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 Apparently he was admitted at a hospital in [place] about 5 years ago and had cystoscopy [...] EST Hospitalist Progress Note 10/23/2019 5:02 PM [phone]: Please page me ([phone]) for patient care issues. [phone]: Please page [facility] night Hospitalist for any [...] anemia Plan -daily weights, I&Os, dialysis per crts -renal biopsy and temp dialysis cath pending, crts to arrabge -am labs, replace lytes prn -increase activity -DVT prophylaxis: [] Lovenox [x] Heparin [] SCDs [x] Encourage ambulation [] Already on Anticoagulation Advance Directive: Full Code Discharge planning: likely discharge in next 24 hours Darell Sanches DO Division of Hospitalist Medicine Inpatient Medical Services PAGER: [phone] * Darell Sanches DO - 10/22/2019 2:17 PM EST Hospitalist Progress Note 10/22/2019 2:17 PM [phone]: Please page me ([phone]) for patient care issues. [phone]: Please page [facility] night Hospitalist for any [...] 4.9 4.3 CL 94* 94* 95* CO2 28 BUN 76* 83* 53* CREATININE 9.40* [...] anemia Plan -daily weights, I&Os, dialysis per crts -discussed with patient and he is willing to have the renal bx done. Will notify crts -am labs, replace lytes prn -increase activity -DVT prophylaxis: [] Lovenox [x] Heparin [] SCDs [x] Encourage ambulation [] Already on Anticoagulation Advance Directive: Full Code Discharge planning: likely discharge in next 1-2 days after renal biopsy Darell Sanches DO Division of Hospitalist Medicine Inpatient Medical Services PAGER: [phone] * Randolph Liz MD - 10/22/2019 12:46 PM EST [facility] [address] [place] [address] Progress Note Subjective: Patient seen [...] interval not displayed. Recent Labs 10/20/19 0408 10/20/19184610/21/19 0532 10/22/19 0430 NA 136 135 135 [...] start binders bp better continue norvasc Randolph Agusto,M.D 10/22/2019 12:46 PM * Earlene Irving MD - 10/21/2019 10:34 PM EST Hospitalist Progress Note 10/21/2019 10:35 PM [phone]: Please page me ([phone]) for patient care issues. [phone]: Please page [facility] night Hospitalist for any issues. Subjective: [...] bolus, 20 mL, Intravenous, Once, Delon Jessica, STUDENT SERVICES COUNSELOR - SECURITY VEHICLE PATROL OFFICER hydrALAZINE (APRESOLINE) injection 10 mg, 10 mg, [...] of Hospitalist Medicine Inpatient Medical Services PAGER: [phone] * Randolph Liz MD - 10/21/2019 1:44 PM EST [facility] [address] [place] [address] Progress Note Subjective: Patient seen and examined [...] Name: Glenn Snyder Patient : 1965 Acct: [id number] Date of Admission: 10/19/2019 [facility]: [facility] Code Status: Full Code Allergies: [...] HCO3 (Bicarb): 35 Na+ Modeling: NA Dialyzer: [id number] Dialysate Temperature (C): 36 Blood Flow Rate [...] Regular Unlabored None (Room air) Expiratory wheezes [place] Dry;Warm Distended;Rounded;Soft Audible Generalized 0 10/21/19 1300 0 3 Regular Unlabored None (Room air) Clear;Diminished [place] Dry;Warm Distended;Rounded;Soft Active Generalized 0 Labs Recent [...] - Before each treatment: Dialysis Machine No.: [id number] RO Machine No.: [id number] Dialyzer Lot No.: [id number] RO Machine Log Sheet Completed: Yes Machine Alarm Self Test: Completed;Passed (10/21/19 0940) Machine Autotest: Completed, Passed Air Foam Detector: Tested, Proper Function, pH Reading Extracorporeal Circuit Tested for Integrity: Yes Machine Conductivity: 13.7 Manual Conductivity: 13.8 Machine Ph: 7 Manual Ph: 7 Bleach Test (Neg): Yes Bath Temperature: 96.8 F (36 C) Tubing Lot#: [id number] Conductivity Meter Serial #: [id number] All Connections Secure?: Yes Venous Parameters Set?: [...] Name: Glenn Snyder Patient : 1965 Acct: [id number] Date of Admission: 10/19/2019 Room/Bed: [address] [place] [address] Code Status: Full Code Allergies: No Known [...] (Bicarb): 35 Na+ Modeling: Not Applicable Dialyzer: [id number] Dialysate Temperature (C): 36 Blood Flow Rate [...] x3 Regular Unlabored None (Room air) Clear [place] Dry;Warm Good Soft Active None 0 10/20/19 [...] - Before each treatment: Dialysis Machine No.: [id number] RO Machine No.: [id number] Dialyzer Lot No.: [id number] RO Machine Log Sheet Completed: Yes Machine Alarm Self Test: Completed;Passed (10/20/191524) Machine Autotest: Completed, Passed Air Foam Detector: Tested, Proper Function, pH Reading Extracorporeal Circuit Tested for Integrity: Yes Machine Conductivity: 13.6 Manual Conductivity: 13.6 Machine Ph: 7 Manual Ph: 7 Bleach Test (Neg): Yes Bath Temperature: 96.8 F (36 C) Tubing Lot#: [id number] Conductivity Meter Serial #: [id number] All Connections Secure?: Yes Venous Parameters Set?: [...] Pedraza MD - 10/20/2019 2:42 PM EST [facility] Progress Note SUBJECTIVE: Glenn Snyder [...] never had kidney Bx and never saw crts before BLOSSOM might be from CKD progression [...] follow Please call if any question at [phone] JEANA PEDRAZA MD 10/20/2019 2:43 PM * [...] []Injected [x]Non-Injected / Pinnae [x]Normal []Other/ Dentitian []Habematolel Teeth []Dentures Oral Mucosa [x][place] [x]Moist []Dry/ Oral ETT []Present [x]Absent Neck: [...] [x]Absent/ GUAN ([x]RUE [x]RLE [x]LUE [x]LLE) Neurologic: [place] []Yes [x]No Corneal reflexes []Present []Absent / [...] Ordering Physician MD ENCARNACION MATTHEW Accession Number [id number] CPT4 Codes 12998 () Reason For Exam line placement/vascath Report [...] 5. 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 Nutrition Risk Level: High Nutrient Needs: Estimated Daily Total Kcal: [phone] Estimated Daily Protein (g): 60-90 Estimated Daily [...] Wt: (na) % Weight Change: , na [place] Body Wt: 166 lb (75.3 kg), % [place] Body 132 Adjusted Body Wt: , body [...] Name: Glenn Snyder Patient : 1965 Acct: [id number] Date of Admission: 10/19/2019 Room/Bed: 222/5 Code Status: No Order Allergies: No Known [...] (Bicarb): 40 Na+ Modeling: Not Applicable Dialyzer: [id number] Dialysate Temperature (C): 36 Blood Flow Rate [...] - Before each treatment: Dialysis Machine No.: [id number] RO Machine No.: [id number] Dialyzer Lot No.: [id number] RO Machine Log Sheet Completed: Yes Machine Alarm Self Test: Completed;Passed (10/19/19 1245) Machine Autotest: Completed, Passed Air Foam Detector: Proper Function, Tested, pH Reading Extracorporeal Circuit Tested for Integrity: Yes Machine Conductivity: 13.8 Manual Conductivity: 13.7 Machine Ph: 7 Manual Ph: 7 Bleach Test (Neg): Yes Bath Temperature: 96.8 F (36 C) Tubing Lot#: [id number] Conductivity Meter Serial #: [id number] All [employer] Secure?: Yes Venous Parameters Set?: [...] to Education: Verbalized Understanding documented in this [facility] Work Phone: [phone] Hospital course Narrative* Darell Sanches, DO - 10/27/2019 11:23 AM EST Hospitalist [...] to presentation. Admitted to ICU, seen by crts and HD initiated. Stabilized and transferred out [...] Medications: Glenn Snyder Home Medication Instructions JOSE M:[id number] Printed on:10/27/19 1123 Medication Information amLODIPine (NORVASC) 5 MG tablet Take 1 tablet by mouth daily metoprolol tartrate (LOPRESSOR) 25 MG tablet Take 0.5 tablets by mouth 2 times daily sevelamer (RENVELA) 800 MG tablet Take 2 tablets by mouth 3 times daily (with meals) Recommended Follow-up: crts In 3 weeks post hospital fu appt Brenton Mckeon MD [address] [facility] [address] In 2 weeks post hospital fu appt Readmission Risk Risk of Unplanned Readmission: 15 Complexity of Follow up: ? Moderate Complexity: follow up within 7-14 calendar days (31865) ? Severe Complexity: follow up within 7 calendar days (10296) Follow up Testing, Pending results or Referrals [...] frame. Signed: Darell Sanches DO [facility] 10/27/2019, 11:23 AM documented in this [facility] Work Phone: [phone] 618-327601-28-2020 Hospital Discharge instructions* Discharge Instr - Activity* [...] Bai RN - 10/24/2019 2:21 PM EST [facility] [phone] offer services including medical, dental, [facility], behavioral health and a reduced-rate pharmacy. Fees are based on current income and family size. Please refer to your handout for additional information and all location options. ISAURAREJI Sharpe. [facility] [place] [address] Wednesday 8 AM 6 PM Wednesday 8 AM 2 PM Hemodialysis will be Wednesday, Wednesday and Wednesday at [facility] located at [address] [place] [phone] or [phone] Please arrive at 9:45 am * Additional [...] through Care Everywhere. * Kidney Biopsy: Post-op (Northern Irish) [facility]: Evaluation note* Diagnosis Acute kidney [...] rectum and anus [facility] Other iron deficiency anemia- Primary Rectal bleeding Hemorrhage of rectum and anus [facility]* Diagnosis Skin sore- Primary ESRD (end stage renal disease) on dialysis (HCC) End stage renal disease [facility] Diagnosis New onset a-fib (CMS/HCC) (HCC)- Primary Atrial fibrillation New onset a-fib (CMS/HCC) (HCC) Atrial fibrillation Atrial fibrillation, persistent (HCC) [facility] Diagnosis Nonrheumatic aortic valve stenosis- Primary Paroxysmal A-fib (CMS/HCC) (HCC) Primary hypertension Unspecified essential hypertension Calcification of abdominal aorta (HCC) Tobacco abuse Tobacco use disorder ESRD on hemodialysis (CMS/HCC) (HCC) [facility] Diagnosis Personal history of nicotine dependence- Primary Nicotine dependence, cigarettes, uncomplicated [facility] Diagnosis Paroxysmal A-fib (CMS/HCC) (HCC)- [...] (CMS/HCC) (HCC) [facility] Diagnosis Paroxysmal A-fib (CMS/HCC) (HCC)- [...] abdominal surgery [facility] Diagnosis Paroxysmal A-fib (CMS/HCC) (HCC)- [...] pulmonale present (HCC) documented in this encounter [facility]* Diagnosis Paroxysmal A-fib (CMS/HCC) [...] to fungus (HCC) [facility] Diagnosis Paroxysmal A-fib (CMS/HCC) (HCC)- [...] aortic valve stenosis documented in this encounter [facility]* Diagnosis Paroxysmal A-fib (CMS/HCC) (HCC)- Primary Nonrheumatic aortic valve stenosis Primary hypertension Unspecified essential hypertension ESRD on hemodialysis ([facility]/HCC) (HCC) Calcification of abdominal aorta (HCC) Tobacco abuse Tobacco use disorder Nonrheumatic aortic valve stenosis- Primary Paroxysmal A-fib (CMS/HCC) (HCC) Primary hypertension Unspecified essential hypertension Calcification of abdominal aorta (HCC) Tobacco abuse Tobacco use disorder ESRD on hemodialysis ([facility]/HCC) (HCC) Paroxysmal A-fib ([facility]/HCC) (HCC)- Primary Nonrheumatic aortic valve stenosis Tobacco abuse Tobacco use disorder Alcohol use disorder in remission Acute respiratory failure with hypoxia (HCC)- Primary Tracheostomy dependence (HCC) Tracheostomy status RSV (acute bronchiolitis due to respiratory syncytial virus) Acute bronchiolitis due to respiratory syncytial virus (RSV) Leg DVT (deep venous thromboembolism), acute, left (HCC) Nonrheumatic aortic valve stenosis [facility] Diagnosis Paroxysmal A-fib (CMS/HCC) (HCC)- Primary Nonrheumatic aortic valve stenosis Primary hypertension Unspecified essential hypertension ESRD on hemodialysis ([facility]/HCC) (HCC) Calcification of abdominal aorta (HCC) Tobacco abuse Tobacco use disorder Nonrheumatic aortic valve stenosis- Primary Paroxysmal A-fib (CMS/HCC) (HCC) Primary hypertension Unspecified essential hypertension Calcification of abdominal aorta (HCC) Tobacco abuse Tobacco use disorder ESRD on hemodialysis ([facility]/HCC) (HCC) Paroxysmal A-fib (CMS/HCC) (HCC)- Primary [...] elsewhere classified [facility] Diagnosis Paroxysmal A-fib (CMS/HCC) (HCC)- [...] (CMS/HCC) (HCC) [facility] Diagnosis Paroxysmal A-fib (CMS/HCC) (HCC)- [...] Acute respiratory failure with hypoxia ([facility]) [J96.01]- Primary Tracheostomy care ([facility]) [Z43.0] Attention to tracheostomy Pulmonary embolism, other, unspecified chronicity, unspecified whether acute cor pulmonale present ([facility]) documented in this encounter [facility]* Diagnosis Paroxysmal A-fib (CMS/HCC) [...] Acute respiratory failure with hypoxia ([facility]) [J96.01]- Primary 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] Tracheostomy status Pulmonary embolism, other, unspecified chronicity, unspecified whether acute cor pulmonale present (HCC) [facility] Diagnosis Paroxysmal A-fib (CMS/HCC) (HCC)- [...] region, unstageable (HCC) [facility] Diagnosis Paroxysmal A-fib (CMS/HCC) (HCC)- [...] Decubitus ulcer of sacral region, unstageable (HCC) 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 (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 of antibiotics [facility] Diagnosis Paroxysmal A-fib (CMS/HCC) (HCC)- [...] Acute respiratory failure with hypoxia ([facility]) [J96.01]- Primary 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] Tracheostomy [...] Acute respiratory failure with hypoxia ([facility]) [J96.01] Leg DVT (deep venous thromboembolism), acute, [...] Leukocytosis, unspecified type documented in this encounter [facility]* Diagnosis Paroxysmal A-fib (CMS/HCC) [...] (MSSA), unspecified part of lung ([facility]) Acute respiratory failure with hypoxia ([facility]) [J96.01] Nonrheumatic aortic valve stenosis Pulmonary embolism, unspecified chronicity, unspecified pulmonary embolism type, unspecified whether acute cor pulmonale present ([facility]) documented in this encounter [facility]* Diagnosis Paroxysmal A-fib (CMS/HCC) [...] Tracheostomy status ESRD on hemodialysis (CMS/HCC) (HCC) 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 (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 of antibiotics Decubitus ulcer of sacral region, unstageable (HCC) Sacral osteomyelitis (CMS/HCC) (HCC) [facility] Diagnosis Paroxysmal A-fib (CMS/HCC) (HCC)- [...] Acute respiratory failure with hypoxia ([facility]) [J96.01]- Primary RSV (acute bronchiolitis due to respiratory syncytial virus) Acute bronchiolitis due to respiratory syncytial virus (RSV) Tracheostomy dependence (HCC) Tracheostomy status Leg DVT (deep venous thromboembolism), acute, left (HCC) Pulmonary embolism, unspecified chronicity, unspecified pulmonary embolism type, unspecified whether acute cor pulmonale present ([facility]) S/P AVR [facility] [...] Decubitus ulcer of sacral region, unstageable (HCC) 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 (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) use of antibiotics [facility] noteNo assessment information availableW[facility]Paulding [facility] Work Phone: Evaluation note* Diagnosis Paroxysmal [...] hypoxia (HCC) [J96.01] documented in this encounter [facility]* Diagnosis Paroxysmal A-fib (CMS/HCC) [...] malnutrition (CMS/HCC) (HCC) [facility] Diagnosis Paroxysmal A-fib (CMS/HCC) (HCC)- [...] (CMS/HCC) (HCC) [facility] Diagnosis Paroxysmal A-fib (CMS/HCC) (HCC)- [...] of right hand documented in this encounter [facility]* Diagnosis Paroxysmal A-fib (CMS/HCC) [...] in remission Hemoptysis [facility] Diagnosis Paroxysmal A-fib (CMS/HCC) (HCC)- [...] Necrosis (HCC) Gangrene [facility]* Instructions* Fabiola Huitron RN [...] or dog food bags, or a vacuum bobbin cleaner hand. Your dressing will be removed at your [...] call and ask for the Interventional Radiologist client solutions manager. Where can you learn more? Go to [email or web address] and sign in to your [employer] account. Enter P616 in the Search Health Information box to learn more about Hemodialysis Access: What to Expect at Home. If you do not have an account, please click on the "Sign Up Now" link. Current as of: August 12, 2016 Content Version: 11.2 8818-2718 [employer]. Care instructions adapted under license by [employer]. If youhave questions about a medical condition or this instruction, always ask your healthcare professional. [employer] disclaims any warranty or liability for your use of this information. [facility] Phone: Reason for referral (narrative)* Outpatient Procedure (Routine) - Authorized Specialty Diagnoses / Procedures Referred By Contac t Referred To Contact [facility] Diagnoses Acute blood loss anemia Rectal bleeding Procedures COLONOSCOPY DIAGNOSTIC COLONOSCOPY FLX DX W/COLLJ SPEC WHEN Rudy Buitrago MD [address] [place] [address] [address] Referral ID Status Reason Start Date Expiration Date Visits Requested Visits Authorized [id number] Authorized Auto-Generat ed Referral 12/25/2021 12/25/2022 1 1 [facility] for referral (narrative)* Outpatient Procedure (Routine) - Authorized Specialty Diagnoses / Procedures Referred By Contac t Referred To Contact [facility] Diagnoses Other iron deficiency anemia Rectal bleeding Procedures COLONOSCOPY DIAGNOSTIC COLONOSCOPY FLX DX W/COLLJ SPEC WHEN Rudy Buitrago MD [address] [place] [address] [address] Referral ID Status Reason Start Date Expiration Date Visits Requested Visits Authorized [id number] Authorized Auto-Generat ed Referral 12/30/2021 12/30/2022 1 1 [facility] for referral (narrative)* Consultation (Routine) - Pending Review Specialty Diagnoses / Procedures Referred By Contac t Referred To Contact Wound Care Diagnoses Skin sore Procedures CO OFFICE/OUTPATIENT NEW HIGH MDM 60-74 MINUTES Jese Frank MD [address] [place] [address] [facility] W[facility] Ostomy H[facility] [address] [place] [address] Referral ID Status Reason Start Date Expiration Date Visits Requested Visits Authorized [id number] Pending Review Specialty Services Required 05/01/2023 04/30/2024 1 1 [facility] for referral (narrative)No reason for referral information availableWMercy Health [facility] Work Phone: Reason for visit Narrative* Auth/Cert (Routine) Specialty Diagnoses / Procedures Referred By Contjayant t Referred To Contact Diagnoses Atrial flutter, unspecified type (HCC) Procedures . Ramón Romano MD [address] [place] [address] Phone: tel: fax: [facility] [address] [place] [address] Phone: tel: Referral ID Status Reason Start Date Expiration Date Visits Re quested Visits Authorized [id number] [address] [facility] N[facility]* Imaging (Routine) - Closed Specialty Diagnoses / Procedures Referred By Contjayant t Referred To Contact Radiology Diagnoses Hemoptysis Procedures CT chest wo IV contrast Elly Jett [place] [address] Phone: tel: fax: [address] [place] [address] Phone: tel: fax: Referral ID Status Reason Start Date Expiration Date Visits Re quested Visits Authorized [id number] Closed 02/23/2025 02/23/2026 1 1 [facility] Assessments Diagnosis Chronic kidney disease, stage V (HCC) Chronic kidney disease, Stage V Diagnosis Preoperative testing Preoperative examination, unspecified Hypertensive kidney disease with CKD stage IV (HCC) Unspecified hypertensive kidney disease with chronic kidney disease stage I through stage IV, or unspecified History of Present Illness * Brandy iLnd RN - 10/17/2020 8:00 AM EST Removed [...] Documents on File Type Date Recorded Patient Keymodule Assembly Supervisor Expl anation Advance Directive(s) 11/22/2020 11:20 AM Advance Directive(s) 06/12/2020 8:15 AM Advance Directive(s) 03/20/2020 7:16 AM Documents on File Type Date Recorded Patient Keymodule Assembly Supervisor Expl anation Advance Directive(s) 11/22/2020 11:20 AM Advance Directive(s) 06/12/2020 8:15 AM Advance Directive(s) 03/20/2020 7:16 AM Documents on File Type Date Recorded Patient Keymodule Assembly Supervisor Expl anation Power of Birthing Nurse 02/14/2023 1:37 PM Advance Directives and Livin g Will 02/14/2023 1:37 PM Documents on File Type Date Recorded Patient Keymodule Assembly Supervisor Expl anation Power of Birthing Nurse 02/14/2023 1:37 PM Advance Directives and Livin [...] Documents on File Type Date Recorded Patient Keymodule Assembly Supervisor Expl anation Advance Directives and Livin g Will 10/03/2024 11:27 AM Power of Birthing Nurse 02/14/2023 1:37 PM Advance Directives and Livin g Will 02/14/2023 1:37 PM Date Activated Date Inactivated Comments 10/03/2024 6:19 PM Date Activated Date Inactivated Comments 08/17/2023 12:04 AM 08/17/2023 5:18 PM Documents on File Type Date Recorded Patient Keymodule Assembly Supervisor Expl anation Advance Directives and Livin g Will 10/03/2024 11:27 AM Power of Birthing Nurse 02/14/2023 1:37 PM Advance Directives and Livin [...] Documents on File Type Date Recorded Patient Keymodule Assembly Supervisor Expl anation Power of Birthing Nurse 01/24/2025 12:29 PM Advance Directives and Livin g Will 10/03/2024 11:27 AM Power of Birthing Nurse 02/14/2023 1:37 PM Advance Directives and Livin [...] Omar Lillian Child Health Care Agent [facility] Alternate Health Care Agent Documents on File Type Date Recorded Patient Keymodule Assembly Supervisor Expl anation Power of Birthing Nurse 01/24/2025 12:29 PM Advance Directives and Livin g Will 10/03/2024 11:27 AM Power of Birthing Nurse 02/14/2023 1:37 PM Advance Directives and Livin [...] Omar Lillian Child Health Care Agent [facility] Alternate Health Care Agent Healthcare Agents on File Name Relationship Healthcare Agent Relationshi p Communication Omar Lillian Child Health Care Agent [facility] Alternate Health Care Agent Healthcare Agents on File Name Relationship Healthcare Agent Relationshi p Communication Omar Lillian Child Health Care Agent [facility] Alternate Health Care Agent Healthcare Agents on File Name Relationship Healthcare Agent Relationshi p Communication Omar Lillian Child Health Care Agent [facility] Alternate Health Care Agent Date Activated [...] Lillian Child Health Care Agent Toma Mcneil [facility] Alternate Health Care Agent Healthcare Agents on File Name Relationship Healthcare Agent Relationshi p Communication Omar Lillian Child Health Care Agent [facility] Alternate Health Care Agent Documents on File Type Date Recorded Patient Keymodule Assembly Supervisor Expl anation Power of Birthing Nurse 01/24/2025 12:29 PM Omar Lillian Advance Directives and Livin g Will 10/03/2024 11:27 AM Power of Birthing Nurse 02/14/2023 1:37 PM Advance Directives and Livin [...] Omar Lillian Child Health Care Agent [facility] Alternate Health Care Agent Healthcare Agents on File Name Relationship Healthcare Agent Relationshi p Communication Omar Lillian Child Health Care Agent [facility] Alternate Health Care Agent Documents on File Type Date Recorded Patient Keymodule Assembly Supervisor Expl anation Power of Birthing Nurse 01/24/2025 12:29 PM Omar Lillian Advance Directives and Livin g Will 10/03/2024 11:27 AM Power of Birthing Nurse 02/14/2023 1:37 PM Advance Directives and Livin [...] Referral Specialty Diagnoses / Procedures Referred By Manny t Referred To Contact Radiology Diagnoses Nicotine dependence, cigarettes, uncomplicated Personal history of nicotine dependence Procedures CT lung screening low dose MiriamFransisco dodd, STUDENT SERVICES COUNSELOR [address] [place] [address] Referral ID Status Reason Start Date Expiration Date V isits Requested Visits Authorized [id number] Authorized 09/07/2023 09/06/2024 1 1 Chief Complaint and Reason for Visit Chief Complaint Admit Date LABWORK February 05, 2025 5:56a m Chief Complaint Admit Date LABWORK February 05, 2025 5:56a m LABOWRK February 07, 2025 5:00a m CORRECTION LAB WORK February 15, 2025 5:0 0am CORRECTION LAB WORK February 20, 2025 4:0 0am Chief Complaint Admit Date LABWORK February 05, 2025 5:56a m LABOWRK February 07, 2025 5:00a m Chief Complaint Admit Date LABWORK February 05, 2025 5:56a m LABOWRK February 07, 2025 5:00a m CORRECTION LAB WORK February 08, 2025 5:0 0am CORRECTION LAB WORK February 12, 2025 5:0 0am CORRECTION LAB WORK February 13, 2025 5:0 0am CORRECTION LAB WORK February 15, 2025 5:0 0am CORRECTION LAB WORK February 20, 2025 4:0 0am Additional Source Comments Source Comments (unrecognize d section and content) In the event this informatio n is protected by the Federal Confidentiality of Alcohol and Drug Abuse Patient Records regulations: The Federal rules restrict any use of the information to criminally investigate or prosecute any alcohol or drug abuse patient.[facility] the event this information is protected by the Federal Confidentiality of Alcohol and Drug Abuse Patient Records regulations: The Federal rules restrict any use of the information to criminally investigate or prosecute any alcohol or drug abuse patient.[facility] HospitalIn the event this information is protected by the Federal Confidentiality of Alcohol and Drug Abuse Patient Records regulations: The Federal rules restrict any use of the information to criminally investigate or prosecute any alcohol or drug abuse patient.[facility] HospitalIn the event this information is protected by the Federal Confidentiality of Alcohol and Drug Abuse Patient Records regulations: The Federal rules restrict any use of the information to criminally investigate or prosecute any alcohol or drug abuse patient.[facility] HospitalIn the event this information is protected by the Federal Confidentiality of Alcohol and Drug Abuse Patient Records regulations: The Federal rules restrict any use of the information to criminally investigate or prosecute any alcohol or drug abuse patient.[facility] HospitalIn the event this information is protected by the Federal Confidentiality of Alcohol and Drug Abuse Patient Records regulations: The Federal rules restrict any use of the information to criminally investigate or prosecute any alcohol or drug abuse patient.[facility] HospitalIn the event this information is protected by the Federal Confidentiality of Alcohol and Drug Abuse Patient Records regulations: The Federal rules restrict any use of the information to criminally investigate or prosecute any alcohol or drug abuse patient.[facility] HospitalIn the event this information is protected by the Federal Confidentiality of Alcohol and Drug Abuse Patient Records regulations: The Federal rules restrict any use of the information to criminally investigate or prosecute any alcohol or drug abuse patient.[facility] (unrecognized sect ion and content) No Status Records FoundNo Status Records FoundNo Status Records FoundNo Status Records FoundNo Status Records FoundNo Status Records Found INFORMATION SOURCE (unrecogn ized section and content) DATE CREATED AUTHOR 11/26/2020 Rodrigo Dorado [facility] DATE CREATED AUTHOR AUTHOR'S ORGANIZ ATION 09/18/2021 [facility] DATE CREATED AUTHOR AUTHOR'S ORGANIZ ATION 12/18/2022 [facility] [place] DATE CREATED AUTHOR AUTHOR'S ORGANIZ ATION 04/16/2024 [facility] DATE CREATED AUTHOR AUTHOR'S ORGANIZ ATION 04/18/2025 [facility] DATE CREATED AUTHOR AUTHOR'S ORGANIZ ATION 04/19/2025 [facility] Continuous Active and Recently Administ ered [...] On 05/01/23 at 2020, For 1 dose 2020 (Given - Provid er: Sony Dacosta RN) [...] sodium chloride 0.9 % 100 mL IVPB (Add-[place]) 3,000 mg, IntraVENous, at 200 mL/hr, Administer over 30 Minutes, Every 24 hours, First dose on Brigid 01/25/25 at 1700, ADD-[place] bag, Suspected Indication (Select all that apply): Bone and Joint Infection 183 (New Bag - Provider: Miriam Reza, SWEETIE)2012 (Stopped - Provider: Casandra Rose, SWEETIE) 1645 (New Bag - Provider: Angella Ley RN)1715 (Due: Stopped - Provider: Angella Ley RN) 1700 (Canceled Entry - Provider: Automatic Discharge Provider - Comment: Automatically canceled at discontinue of medication order) ampicillin-sulbactam (Unasyn) 3,000 mg in sodium chloride 0.9 % 100 mL IVPB (Add-[place]) (CANCELED) 3,000 mg, IntraVENous, at 200 mL/hr, Administer over 30 Minutes, Every 24 hours, First dose on Wed02/01/25 at 1030, For 13 days, ADD-[place] bag, Suspected Indication (Select all that apply): [...] 2100 1038 (Given - Provider: Miriam Reza, RN)2023 (Given - Provider: Casandra Rose, SWEETIE) 1529 (Not Given - Provider: Angella Ley RN - Reason: Other - Comment: dialysis)2041 (Given - Provider: Leilani Jaimes RN) 0815 (Given - Provider: Kristine Dnoato, RN) midodrine (Proamatine) tablet 10 mg 10 [...] Jun Borrero MD) lidocaine-EPINEPHrine (Xylocaine W/EPI) 1 %-1:[id number] injection (COMPLETED) As needed, Starting on Wed01/30/25 [...] pupils, Starting on Wed01/19/25 at 0614, +++notify client solutions manager provider if used+++ oxyCODONE (Roxicodone) immediate release [...] Najera RN) 0831 (Given - Provider: Ochoa Johnson RN)2123 (Given - Provider: Rosio Bey, SWEETIE) 0913 [...] Shasta Sinclair RN)1340 (Stopped - Provider: Shasta Sinclair, RN)1351 (New Bag - Provider: Shasta Sinclair, RN)1819 (Stopped - Provider: Shasta Sinclair RN)2120 (New Bag - Provider: Rudolph Najera RN) 0018 (Stopped - Provider: Rudolph Najera RN)0158 (New Bag - Provider: Rudolph Najera RN)0441 (Stopped - Provider: Rudolph Najera RN)0831 (New Bag - Provider: Ochoa Johnson RN)1141 (Stopped - Provider: Liv Grimaldo, SWEETIE)1611 (New Bag - Provider: Liv Grimaldo RN)2115 (Stopped - Provider: Rosio Bey RN)2125 (New Bag - Provider: Rosio Bey, SWEETIE) 0025 (Stopped - Provider: Rosio Bey, SWEETIE)0438 (New Bag - Provider: Rosio Bey RN)0739 [...] Rudolph Najera RN)0727 (Handoff - Provider: Ochoa Johnson RN)1032 (Handoff - Provider: Ochoa Johnson, SWEETIE)1920 [...] sedation for opioid reversal - MUST notify client solutions manager provider immediately after first dose, may give [...] 2100 1011 (Given - Provider: Whitney Dobbins RN)2101 (Given - Provider: Rosio Bey RN) 0936 (Given - Provider: Whitney Dobbins RN)212 (Given - Provider: Mir Cannon RN) 0843 [...] to 3.2-19.3 mL/hr), IntraVENous, Continuous, Starting on Wed03/17/25 at 1100, HIGH Dose Heparin Weight Based [...] Care Teams (unrecognized sec tion and content) 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 Relationship Specialty Start Date End Date Daryn Loomis MD [facility] [facility], [place] [address] PCP - General Family Medicine 12/18/20 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 Relationship Specialty Start Date End Date Candido Starr MD [address] [facility] [address] [place] [address] Nephrology 02/22/20 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 Relationship Specialty Start Date End Date Candido Starr MD [address] [place] [phone] Nephrology 02/22/20 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 Relationship Specialty Start Date End Date Candido Starr MD [address] [place] [phone] Nephrology 02/22/20 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 Relationship Specialty Start Date End Date Daryn Loomis MD [facility] [place] [address] PCP - General 12/18/20 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 Relationship Specialty Start Date End Date Daryn Loomis MD [address] [place] [phone] PCP - General 12/18/20 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 Relationship Specialty Start Date End Date Daryn Loomis MD [address] [place] [phone] PCP - General 12/18/20 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 Relationship Specialty Start Date End Date Daryn Loomis MD [address] [place] [phone] PCP - General 12/18/20 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 Relationship Specialty Start Date End Date Daryn Loomis MD [address] [place] [phone] PCP - General 12/18/20 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 Relationship Specialty Start Date End Date Daryn Loomis MD [address] [place] [phone] PCP - General 12/18/20 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 Relationship Specialty Start Date End Date Daryn Loomis MD [address] [place] [phone] PCP - General 12/18/20 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 Relationship Specialty Start Date End Date Daryn Loomis MD [address] [place] [phone] PCP - General 12/18/20 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 Relationship Specialty Start Date End Date Candido Starr MD [address] [place] [phone] Nephrology 02/22/20 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 Relationship Specialty Start Date End Date Candido Starr MD [address] [place] [address] Nephrology 02/22/20 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 Relationship Specialty Start Date End Date Daryn Loomis MD [address] [place] [phone] PCP - General 12/18/20 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 Relationship Specialty Start Date End Date Leilani Han [address] [place] [address] PCP - General Family Medicine 10/03/24 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 Relationship Specialty Start Date End Date Leilani Han [address] [place] [address] PCP - General Family Medicine 10/03/24 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 Relationship Specialty Start Date End Date Leilani Han [address], [phone] PCP - General Family Medicine 10/03/24 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 Relationship Specialty Start Date End Date Leilani Han [address], [phone] PCP - General Family Medicine 10/03/24 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 Relationship Specialty Start Date End Date Leilani Han [address], [phone] PCP - General Family Medicine 10/03/24 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 Relationship Specialty Start Date End Date Leilani Han [address], [phone] PCP - General Family Medicine 10/03/24 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 Relationship Specialty Start Date End Date Leilani Han [address], [phone] PCP - General Family Medicine 10/03/24 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 Relationship Specialty Start Date End Date Leilani Han [address], [phone] PCP - General Family Medicine 10/03/24 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 Relationship Specialty Start Date End Date Leilani Han [address], [phone] PCP - General Family Medicine 10/03/24 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 Relationship Specialty Start Date End Date Leilani Han [address] [place] [phone] PCP - General Family Medicine 10/03/24 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 Relationship Specialty Start Date End Date Leilani Han [address] [place] [address] PCP - General Family Medicine 10/03/24 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 Relationship Specialty Start Date End Date Leilani Han [address] [place] [address] PCP - General Family Medicine 10/03/24 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 Relationship Specialty Start Date End Date Leilani Han [address], [phone] PCP - General Family Medicine 10/03/24 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 Relationship Specialty Start Date End Date Leilani Han [address] [place] [address] PCP - General Family Medicine 10/03/24 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 Relationship Specialty Start Date End Date Leilani Han [address], [phone] PCP - General Family Medicine 10/03/24 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 Relationship Specialty Start Date End Date Leilani Han [address] [place] [phone] PCP - General Family Medicine 10/03/24 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 Relationship Specialty Start Date End Date Leilani Han [address] [place] [phone] PCP - General Family Medicine 10/03/24 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 Relationship Specialty Start Date End Date Leilani Han [address] [place] [phone] PCP - General Family Medicine 10/03/24 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 Relationship Specialty Start Date End Date Leilani Han [address] [place] [phone] PCP - General Family Medicine 10/03/24 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 Relationship Specialty Start Date End Date Leilani Han [address], [phone] PCP - General Family Medicine 10/03/24 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 Relationship Specialty Start Date End Date Leilani Han [address] [place] [phone] PCP - General Family Medicine 10/03/24 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 Relationship Specialty Start Date End Date Leilani Han [address] [place] [phone] PCP - General Family Medicine 10/03/24 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 Relationship Specialty Start Date End Date Leilani Han [address] [place] [phone] PCP - General Family Medicine 10/03/24 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 Relationship Specialty Start Date End Date Leilani Han [address] [place] [phone] PCP - General Family Medicine 10/03/24 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 Relationship Specialty Start Date End Date Leilani Han [address] [place] [address] PCP - General Family Medicine 10/03/24 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 Relationship Specialty Start Date End Date Leilani Han [address] [place] [address] PCP - General Family Medicine 10/03/24 [...] Attending Provider Active Start: February 20, 2025 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 Relationship Specialty Start Date End Date Leilani Han [address] [place] [address] PCP - General Family Medicine 10/03/24 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 Relationship Specialty Start Date End Date Leilani Han [address] [place] [address] PCP - General Family Medicine 10/03/24 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 Relationship Specialty Start Date End Date Leilani Han [address] [place] [phone] PCP - General Family Medicine 10/03/24 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 Relationship Specialty Start Date End Date Leilani Han [address] [place] [address] PCP - General Family Medicine 10/03/24 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 Relationship Specialty Start Date End Date Leilani Han [address] [place] [phone] PCP - General Family Medicine 10/03/24 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 Relationship Specialty Start Date End Date Leilani Han [address] [place] [phone] PCP - General Family Medicine 10/03/24 Team [...] February 20, 2025 End: February 20, 2025 Kaylye ALBA MD Referring Provider Active Start: February 20, 2025 End: February 20, 2025 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 Relationship Specialty Start Date End Date Leilani [place] [phone] PCP - General Family Medicine 10/03/24 Team [...] February 12, 2025 End: February 12, 2025 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 Relationship Specialty Start Date End Date Leilani Han [address] [place] [phone] PCP - General Family Medicine 10/03/24 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 Relationship Specialty Start Date End Date Leilani Han [address] [place] [phone] PCP - General Family Medicine 10/03/24 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 Earlene [place] MD [address] [place] [address] [facility] [address] [place] [address] Referral ID Status Reason Start Date Expiration Date Visits Re quested Visits Authorized [id number] 1 1 Reason Onset Date Comments Cancelled [...] To Contact Diagnoses Complication of tracheostomy (CMS/HCC) ([facility]) Procedures . 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 Specialty Diagnoses / Procedures Referred By Contac t Referred To Contact Diagnoses Hemoptysis Procedures . Bettye Pierre MD [address] [place] [address] Phone: tel: fax: [facility] Trauma Neuro Progressive Care Unit PCU [address] [place] [address] Phone: tel: Referral ID Status Reason Start Date Expiration Date Visits Re quested Visits Authorized [id number] 1 1 Reason Onset Date Comments Appointment 02/23/2025 Reason Comments Shortness of Breath Pt arrived from [facility] via EMS. Pt was starting dialysis and feeling short of breath dialysis was stopped and sent to the hospital to be evaluated. Specialty Diagnoses / Procedures Referred By Manny t Referred To Contact Diagnoses SOB (shortness of breath) Procedures 0 Rubi Sanon MD [address] [place] [address] Phone: tel: fax: [facility] Cardiac Progressive Care Unit PCU [address] [place] [address] Phone: tel: Referral ID Status Reason Start Date Expiration Date Visits Re quested Visits Authorized [id number] 1 1 Reason Onset Date Comments Appointment [...] BE BASED ON THE PRIMARY CLINICAL RECORDS. [employer] provides no warranty or guarantee of the accuracy or completeness of information in this document.
[2025-04-20 08:24] LABS: Prothrombin Time (Protime)PT. 29.8 SECONDS (11.7-14.9)
== END ==
LOC: OLS.SANC 05:00
PROVIDERS: Visit Provider Internal Medicine
DX: Z79.01 Long term (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 anticoagulants (principal)
CPT/HCPCS: 36415; 85610

== ENCOUNTER → 2025-04-23 05:00 | Outpatient (REF) | payer MEDICARE, SELFPAY ==
[2025-04-23 09:02] LABS: Hematocrit 29.3 % (40-54); Hemoglobin 9.4 g/dL (13.0-16.5); Immature Granulocytes Count 0.050 X10^3/uL (0.0-0.0); Mean Corp Hgb Conc 32.1 g/dL (32-36); Mean Corpuscular Volume 92.1 fL (80-94); Mean Platelet Vol. 9.4 fl (6.2-12.0); NRBC Flagged by Analyzer 0 % (0-5); Platelet Count 357 K/mm3 (150-450); RBC Distribution Width CV 17.1 % (11.6-14.6); RBC Distribution Width SD 57.9 fl (35.1-43.9); Red Blood Count 3.18 M/mm3 (4.6-6.2); White Blood Count 6.5 K/mm3 (4.4-11.0)
[2025-04-23 09:26] LABS: Prothrombin Time (Protime)PT. 36.1 SECONDS (11.7-14.9)
[2025-04-23 09:30] LABS: AST(SGOT) 32 U/L (<=37); Alanine Aminotransfer ALT/SGPT 8 U/L (<=46); Albumin, Serum 3.1 g/dL (3.5-5.0); Alkaline Phosphatase 352 U/L (40-129); Anion Gap 13 (5-15); BUN 70 mg/dL (4-19); BUN/Creat Ratio 12.2 RATIO (10-20); Calcium,Total 10.0 mg/dL (7.6-11.0); Carbon Dioxide 22.3 mmol/L (21.0-32.0); Chloride 99 mmol/L (98-108); Globulin 4.4 g/dL (2.2-4.2); Glucose 109 mg/dL (70-99); Potassium 5.9 mmol/L (3.3-5.1)
== END ==
LOC: OLS.SANC 05:00
PROVIDERS: Visit Provider Internal Medicine
DX: I48.91 Unspecified atrial fibrillation (principal); I10 Essential (primary) hypertension; Z99.2 Dependence on renal dialysis
CPT/HCPCS: 36415; 80053; 85025; 85610

== ENCOUNTER → 2025-04-24 04:00 | Outpatient (REF) | payer MEDICARE, SELFPAY ==
--- OUTSIDE RECORDS SUMMARY | 2025-04-24 04:21 | XMS RPT_ITS | CCD ---
Author Organization [facility] Care Team Providers Care Cardiology Clinical Nurse Specialist Name Role Phone Candido Starr Unavailable Unavailable Primary Care Provider Unavailrickey Loomis MD, Daryn Cali Primary Care Provider Unavailable Primary Care Provider UnavailCandido Hardy MD Unavailable Daryn Loomis MD Primary Care Provider Candido Starr MD Unavailable [facility] Primary Care Provider [phone] [facility] Provider Kayley Melendrez MD Attending Provider Unava ilable Jayesh Nguyen Attending Provider Unavailab Kayley Cm MD Referring Provider Unava ilable [facility] Primary Care Unavailable BARB DAWKINS Attending Unavailable QUIANA JEFFERY Admitting Unavailable JUNE CHAPARRO Consulting Unavailable [facility] Primary Care Unavailable DIETER VILLEGAS Attending Unavailable [facility] Primary Care Unavailable DA, JAYAPRAKASH Consulting Unavailable JACOB MONTEMAYORIC Attending Unavailable MONTEMAYOR, LUCIANO Admitting Unavailable ELDON ALBA Consulting Unavailable TIFFANIE VILLEGAS Consulting Unavailable DARYN SANTACRUZ Consulting Unavailable CALI ARREDONDO Consulting Unavailable [facility] Primary Care Unavailable WELLINGTON NICOLE Consulting Unavailable RUBI SANON Admitting Unavailable ANU CASTRO Attending Unavailable [facility] Primary Care Unavailable [facility] Primary Care Unavailable KEIRY SOLARES Attending Unavailable BETTYE PIERRE Admitting Unavailable [facility] Primary Care Unavailable ANTHONY HURTADO Attending Unavailable BONNIE, WELLINGTON Consulting Unavailable [facility], CONGERS Primary Care Unavailable FRANK, JESE Referring Unavailable [facility] Primary Care Unavailable ELIZABETH, ASHMA Referring Unavailable [facility]GERS Primary Care Unavailable MIKALA DAY Referring Unavailable MIKALA DAY Attending Unavailable JR SHAH Attending Unavailable DARYN LOOMIS Primary Care Unavailable [facility] Primary Care Unavailable MONTEMAYOR, LUCIANO Referring Unavailable [facility], CONGERS Primary Care Unavailable MONTEMAYOR, LUCIANO Referring Unavailable [facility], CONGERS Primary Care Unavailable OSIRIS TERRELL Attending Unavailable [facility] Primary Care Unavailable MIKALA DAY Attending Unavailable [facility], CONGERS Primary Care Unavailable FRANK, JESE Referring Unavailable [place] OLS, Jayesh Attending Unavailable [...] OLS, Peter Attending Unavailable [place] OLS, Peter Attending Unavailable [place] O[facility], Mahaveer Attending Unavail able [place] OLS, Peter Attending Unavailable [place] OLS, Mahaveer Attending Unavail able [place] OLS, Mahaveer Referring Unavail able Katsaros OLS, Peter Attending Unavailable [place] OLS, Peter Referring Unavailable [place] OLS, Mahaveer Attending Unavail able [...] (11 sources) Lisinopril Drug Allergy 0 Swelling [facility] Work Phone: (20 sources) Lisinopril Allergy to substance 2 Swelling, Angioedema [facility] Medications Current Medications Medication Drug [...] IV) (1 source) Start: 01-26-20 End: 02-15-20 25 take 3 g intravenously every twenty-four hours [...] Start: 04-05-2025 5 mg, IntraVENous, Once, On [facility] 04/05/25 at 1040, For 1 dose Start: 03-17-2025 End: 03-21-2025 take 50 mg by mouth twice daily 50 mg, Oral, 2 times daily, First dose (after last modification) on [facility] 03/17/25 at 2100 Start: 03-15-2025 End: 03-17-2025 take 1 tablet by mouth every six hours 25 mg, Oral, Every 6 hours, First dose (after last modification) on [facility] 03/15/25 at 1200 Start: 03-14-2025 End: 03-15-2025 [...] MG tablet Indications: ESRD on hemodialysis (CMS/HCC) (HCC) Take 1 tablet (800 mg) by mouth 3 times daily (with meals). Swallow tablet whole; do not crush, break, or chew. 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 Take 3 tablets by [facility] three times daily with meals. sodium chloride flush 0.9 % injection 3 mL (1 source) Start: sodium chloride flush 0.9 % injection 3 mL sodium zirconium cyclosilicate 5000 mg powder for oral suspension (20 sources) Start: 025 End: 025 take 5 g by mouth once daily [...] sodium chloride 0.9 % 100 mL IVPB (Add-[place]) (2 sources) Start: 02-01-2025 End: 02-01-2025 anidulafungin [...] End: 01-22-2025 Start: 01-22-2025 End: 01-22-2025 B Mwxouup-R-Fmbpx Acid (NEPHRO-NATO) 0.8 MG TABS (1 source) Start: 10-14-2020 take 1 tablet by mouth once daily B Coydmrs-L-Jwecs Acid (NEPHRO-NATO) 0.8 MG TABS TAKE 1 [...] at 1024, Anesthesia Intraprocedure epoetin rowan-epbx (Retacrit) 23084 UNIT/ML injection (20 sources) Start: 12-04-2024 End: 02-21-2025 inject 0.79 mL by subcutaneous injection every week epoetin rowan-epbx (Retacrit) 55631 UNIT/ML injection Indications: ESRD on Dialysis Inject 0.79 mL (7,900 Units) under the skin 1 (one) time per week. 12/04/2024 02/21/2025 Discontinued (Discontinued by another clinician) Start: 12-04-2024 inject 0.79 mL by bangura bcutaneous injection every week epoetin rowan-epbx (Retacrit) 97594 UNIT/ML injection Indications: ESRD on Dialysis Inject [...] at 1024, Anesthesia Intraprocedure polyethylene glycol 3350 93790 mg powder for oral solution (6 sources) [...] sodium chloride 5860 mg / sodium sulfate 13313 mg powder for oral solution (6 sources) [...] breakdown of skin] Onset: 11-30-2024 11-30-2024 Chronic Congestive heart failure; nonhypertensive (2 sources) Acute [...] sources) Long-term current use of antibiotic; Translations: [long term care pharmacist (current) use of antibiotics] Onset: 01-12-2025 01-12-2025 Episodic Other aftercare (2 sources) [facility] (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 anticoagulants; Translations: [long term care pharmacist (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 anticoagulants] Onset: 03-24-2025 Episodic Other aftercare (1 source) Other [facility] (current) drug therapy; Translations: [Other long term care pharmacist (current) drug therapy] Onset: 02-28-2025 Episodic Other [...] respiratory syncytial virus] Onset: 10-03-2024 10-03-2024 Episodic Complications of surgical procedures or medical care (20 sources) Tracheostomy complication; Translations: [Unspecified tracheostomy complication] Onset: 01-19-2025 01-19-2025 Episodic Deficiency and other anemia (1 source) Normocytic anemia Episodic Deficiency and other anemia (20 sources) Anemia; Translations: [Anemia, unspecified] Onset: 12-30-2021 07-09-2022 Episodic Fluid and electrolyte disorders (5 sources) Angioedema; Translations: [Hyperkalemia] Onset: 10-03-2024 Episodic Other aftercare (1 source) [facility] (current) use of antibiotics; Translations: [[facility] (current) use of antibiotics] Onset: 01-12-2025 Episodic [...] Name Value Interpretation Reference Range Facility CBC W/Diff, Automatedon 03-28 Absolute Lymph 0.95 X10 3/uL Normal 0.83-4.51 [facility] Comment on above: Order Comment: 412.2 Performed By: #### L 100.0100, L500.4050, L300.3900 #### [facility] [address] [place], [address] Absolute Neut 4.2 X10 3/uL Normal 2.0-7.7 [facility] Comment on above: Order Comment: 412.2 Performed By: #### L 100.0100, L500.4050, L300.3900 #### [facility] [address] [place], [address] Basophils/100 WBC (Bld) 1.5 % High 0-1 [facility] Comment on above: Order Comment: 412.2 Performed By: #### L 100.0100, L500.4050, L300.3900 #### [facility] [address] [place], [address] Eosinophils/100 WBC (Bld) 5.7 % High 0-5 [facility] Comment on above: Order Comment: 412.2 Performed By: #### L 100.0100, L500.4050, L300.3900 #### [facility] [address] [place], [address] Erythrocyte distribution width (RBC) [Ratio] 17.1 % High 11.6-14.6 [facility] Comment on above: Order Comment: 412.2 Performed By: #### L 100.0100, L500.4050, [id number] #### [facility] [address] [place], [address] Hematocrit (Bld) [Volume fraction] 29.3 % Low 40-54 [facility] Comment on above: Order Comment: 412.2 Performed By: #### L 100.0100, L500.4050, L300.3900 #### [facility] [address] [place], [address] Hemoglobin (Bld) [Mass/Vol] 9.4 g/dL Low 13.0-16.5 [facility] Comment on above: Order Comment: 412.2 Performed By: #### L 100.0100, L500.4050, L300.3900 #### [facility] [address] [place], [address] IG% 0.800 Normal 0.0-0.9 [facility] Comment on above: Order Comment: 412.2 Result Comment: IG% - Immature Granulocytes (promyelocytes, myelocytes and metamyelocytes) > 1% indicates that a LEFT SHIFT is Present. Performed By: #### L 100.0100, L500.4050, L300.3900 #### [facility] [address] [place], [address] Lymphocytes/100 WBC (Bld) 14.6 % Low 19-41 [facility] Comment on above: Order Comment: 412.2 Performed By: #### L 100.0100, L500.4050, [id number] #### [facility] [address] [place], [address] MCH (RBC) [Entitic mass] 29.6 pg Normal 27.0-32.0 [facility] Comment on above: Order Comment: 412.2 Performed By: #### L 100.0100, L500.4050, [id number] #### [facility] [address] [place], [address] MCHC (RBC) [Mass/Vol] 32.1 g/dL Normal 32-36 [facility] Comment on above: Order Comment: 412.2 Performed By: #### L 100.0100, L500.4050, L300.3900 #### [facility] [address] [place], [address] MCV (RBC) [Entitic vol] 92.1 fL Normal 80-94 [facility] Comment on above: Order Comment: 412.2 Performed By: #### L 100.0100, L500.4050, L300.3900 #### [facility] [address] [place], [address] Monocytes/100 WBC (Bld) 12.6 % High 0-10 [facility] Comment on above: Order Comment: 412.2 Performed By: #### L 100.0100, L500.4050, L300.3900 #### [facility] [address] [place], [address] Neutrophils/100 WBC (Bld) 64.8 % Normal 47-70 [facility] Comment on above: Order Comment: 412.2 Performed By: #### L 100.0100, L500.4050, [id number] #### [facility] [address] [place], [address] Nucleated RBC (Bld) [#/Vol] 0 10*3/uL Normal 0-5 [facility] Comment on above: Order Comment: 412.2 Performed By: #### L 100.0100, L500.4050, L300.3900 #### [facility] [address] [place], [address] Platelet mean volume (Bld) [Entitic vol] 9.4 fL Normal 6.2-12.0 [facility] Comment on above: Order Comment: 412.2 Performed By: #### L 100.0100, L500.4050, L300.3900 #### [facility] [address] [place], [address] Platelets (Bld) [#/Vol] 357 10*3/uL Normal 150-450 [facility] Comment on above: Order Comment: 412.2 Performed By: #### L 100.0100, L500.4050, L300.3900 #### [facility] [address] [place], [address] RBC (Bld) [#/Vol] 3.18 10*6/uL Low 4.6-6.[address] [facility] Comment on above: Order Comment: 412.2 Performed By: #### L 100.0100, L500.4050, L300.3900 #### [facility] [address] [place], [address] RDW SD 57.9 fl High 35.1-43.9 [facility] Comment on above: Order Comment: 412.2 Performed By: #### L 100.0100, L500.4050, [id number] #### [facility] [address] [place], [address] WBC (Bld) [#/Vol] 6.5 10*3/uL Normal 4.4-11.[address] [facility] Comment on above: Order Comment: 412.2 Performed By: #### L 100.0100, L500.4050, [id number] #### [facility] [address] [place], [address] Comprehensive Metabolic Prof [facility] 04-23-2025 Albumin [Mass/Vol] 3.1 g/dL Low 3.5-5.[address] [facility] Comment on above: Order Comment: 412.2 Performed By: #### L 100.0100, L500.4050, L300.3900 #### [facility] [address] [place], [address] Albumin/Globulin [Mass ratio] 0.7 {ratio} Low 0.9-2.4 [facility] Comment on above: Order Comment: 412.2 Performed By: #### L 100.0100, L500.4050, L300.3900 #### [facility] [address] [place], [address] ALK PHOS 352 U/L High 40-129 [facility] Comment on above: Order Comment: 412.2 Performed By: #### L 100.0100, L500.4050, [id number] #### [facility] [address] [place], [address] ALT [Catalytic activity/Vol] 8 U/L Normal <=46 [facility] Comment on above: Order Comment: 412.2 Performed By: #### L 100.0100, L500.4050, L300.3900 #### [facility] [address] [place], [address] AST [Catalytic activity/Vol] 32 U/L Normal <=37 [facility] Comment on above: Order Comment: 412.2 Performed By: #### L 100.0100, L500.4050, [id number] #### [facility] [address] [place], [address] Bilirubin [Mass/Vol] 0.58 mg/dL Normal 0.00-1.30 [facility] Comment on above: Order Comment: 412.2 Performed By: #### L 100.0100, L500.4050, L300.3900 #### [facility] [address] [place], [address] BUN/CRE 12.2 RATIO Normal 10-20 [facility] Comment on above: Order Comment: 412.2 Performed By: #### L 100.0100, L500.4050, L300.3900 #### [facility] [address] [place], [address] Calcium [Mass/Vol] 10.0 mg/dL Normal 7.6-11.[address] [facility] Comment on above: Order Comment: 412.2 Performed By: #### L 100.0100, L500.4050, L300.3900 #### [facility] [address] [place], [address] Chloride [Moles/Vol] 99 mmol/L Normal 98-108 [facility] Comment on above: Order Comment: 412.2 Performed By: #### L 100.0100, L500.4050, L300.3900 #### [facility] [address] [place], [address] CO2 [Moles/Vol] 22.3 mmol/L Normal 21.0-32.0 [facility] Comment on above: Order Comment: 412.2 Performed By: #### L 100.0100, L500.4050, [id number] #### [facility] [address] [place], [address] Creatinine [Mass/Vol] 5.69 mg/dL High 0.70-1.20 [facility] Comment on above: Order Comment: 412.2 Performed By: #### L 100.0100, L500.4050, L300.3900 #### [facility] [address] [place], [address] GAP 13 Normal 5-15 [facility] Comment on above: Order Comment: 412.2 Performed By: #### L 100.0100, L500.4050, [id number] #### [facility] [address] [place], [address] GFR/1.73 sq M.predicted among non-blacks MDRD (S/P/Bld) [Vol rate/Area] 11 mL/min/{1.73_m2} Low >60 [facility] Comment on above: Order Comment: 412.2 Result Comment: mL/m in/1.73m2 CKD-EPI Creatinine Equation (2020) Performed By: #### L 100.0100, L500.4050, L300.3900 #### [facility] [address] [place], [address] Globulin (S) [Mass/Vol] 4.4 g/dL High 2.2-4.2 [facility] Comment on above: Order Comment: 412.2 Performed By: #### L 100.0100, L500.4050, L300.3900 #### [facility] [address] [place], [address] Glucose [Mass/Vol] 109 mg/dL High 70-[address] [facility] Comment on above: Order Comment: 412.2 Performed By: #### L 100.0100, L500.4050, [id number] #### [facility] [address] [place], [address] Potassium [Moles/Vol] 5.9 mmol/L High 3.3-5.1 [facility] Comment on above: Order Comment: 412.2 Performed By: #### L 100.0100, L500.4050, [id number] #### [facility] [address] [place], [address] Sodium [Moles/Vol] 135 mmol/L Normal 133-[address] [facility] Comment on above: Order Comment: 412.2 Performed By: #### L 100.0100, L500.4050, L300.3900 #### [facility] [address] [place], [address] T PROT 7.5 g/dL Normal 5.9-8.4 [facility] Comment on above: Order Comment: 412.2 Performed By: #### L 100.0100, L500.4050, L300.3900 #### [facility] [address] [place], [address] Urea nitrogen [Mass/Vol] 70 mg/dL High 4-19 [facility] Comment on above: Order Comment: 412.2 Performed By: #### L 100.0100, L500.4050, L300.3900 #### [facility] [address] [place], [address] Prothrombin Time w/INRon INR Coag (PPP) [Relative time] 3.5 {INR} Normal [facility] Comment on above: Order Comment: 412.2 Performed By: #### L 100.0100, L500.4050, [id number] #### [facility] [address] [place], [address] PT Coag (PPP) [Time] 36.1 s High 11.7-14.9 [facility] Comment on above: Order Comment: 412.2 Performed By: #### L 100.0100, L500.4050, [id number] #### [facility] [address] [place], [address] 36on 04-20-2025 36 Normal [facility] Prothrombin Time w/INRon INR Coag (PPP) [Relative time] 2.8 {INR} Normal [facility] Comment on above: Order Comment: 412.2 Performed By: #### L 100.0100, L500.4050, [id number] #### [facility] [address] [place], [address] PT Coag (PPP) [Time] 29.8 s High 11.7-14.9 [facility] Comment on above: Order Comment: 412.2 Performed By: #### L 100.0100, L500.4050, [id number] #### [facility] [address] [place], [address] Prothrombin Time w/INRon INR Coag (PPP) [Relative time] 3.4 {INR} Normal [facility] Comment on above: Order Comment: 413.2 Performed By: #### L 500.4050, L100.0100, L300.3900 #### [facility] [address] [place], [address] PT Coag (PPP) [Time] 35.0 s High 11.7-14.9 [facility] Comment on above: Order Comment: 413.2 Performed By: #### L 500.4050, L100.0100, L300.3900 #### [facility] [address] [place], [address] Prothrombin Time w/INRon INR Coag (PPP) [Relative time] 5.2 {INR} Invalid Interpretation Code [facility] Comment on above: Order Comment: 412.2 Result Comment: CRIT ICAL VALUE CALLED TO ROCHELLE BERG ([facility]) 04/18/25 0842 Brett Stack. RESULTS READ BACK BY SAME. Performed By: #### L 100.0100, L500.4050, L300.3900 #### [facility] [address] [place], [address] PT Coag (PPP) [Time] 48.9 s High 11.7-14.9 [facility] Comment on above: Order Comment: 412.2 Performed By: #### L 100.0100, L500.4050, L300.3900 #### [facility] [address] [place], [address] Protime w/INR Fingerstickon 04-18-2025 INR Coag (PPP) [Relative time] 6.0 {INR} Invalid Interpretation Code [facility] Comment on above: Result Comment: Crit ical Value > 4.0 Performed By: #### L 100.0100, L500.4050, L300.3900 #### [facility] [address] [place], [address] Protime Coagsen 56.7 SEC High 11.7-14.9 [facility] Comment on above: Performed By: #### L 100.0100, L500.4050, [id number] #### [facility] [address] [place], [address] CBC W Auto Differential pane l (Bld)on 04-17-2025 Basophils (Bld) [#/Vol] 0.1 10*3/uL 0.0 - 0.2 10*3/uL [employer] Basophils/100 WBC (Bld) 1.4 % 0.0 - 2.0 % [employer] Eosinophils (Bld) [#/Vol] 0.2 10*3/uL 0.0 - 0.5 10*3/uL [facility] Eosinophils/100 WBC (Bld) 3.3 % 0.0 - 6.0 % [facility] Erythrocyte distribution width (RBC) [Ratio] 16.6 % High 11.5 - 15.0 % [facility] Hematocrit (Bld) [Volume fraction] 29.6 % Low 40.0 - 52.0 % [facility] Hemoglobin (Bld) [Mass/Vol] 9.6 g/dL Low 13.0 - 18.0 g/dL [facility] Immature granulocytes (Bld) [#/Vol] 0 10*3/uL NINF - 0.1 10*3/uL [facility] Immature granulocytes/100 WBC (Bld) 0.4 % 0.0 - 2.0 % [facility] Interpretation and review of laboratory results Abnormal [facility] Lymphocytes (Bld) [#/Vol] 1 10*3/uL 1.0 - 4.3 10*3/uL [facility] Lymphocytes/100 WBC (Bld) 13.3 % Low 15.0 - 45.0 % [facility] MCH (RBC) [Entitic mass] 29.3 pg 26. 0 - 34.0 pg [facility] MCHC (RBC) [Mass/Vol] 32.4 % 30.5 - 36.0 % [facility] MCV (RBC) [Entitic vol] 90.2 fL 77.0 - 99.0 fL [facility] Monocytes (Bld) [#/Vol] 1.1 10*3/uL High 0.0 - 0.9 10*3/uL [facility] Monocytes/100 WBC (Bld) 15.2 % High 5.0 - 13.0 % [facility] Neutrophils (Bld) [#/Vol] 4.8 10*3/uL 1.8 - 7.5 10*3/uL [facility] Neutrophils/100 WBC (Bld) 66.4 % 38.0 - 82.0 % [facility] Nucleated RBC/100 WBC (Bld) [Ratio] 0 % [facility] Platelet mean volume (Bld) [Entitic vol] 9.3 fL 9.0 - 12.7 fL [facility] Platelets (Bld) [#/Vol] 381 10*3/uL 140 - 440 10*3/uL [facility] RBC (Bld) [#/Vol] 3.28 10*6/uL Low 4.40 - 5.9 0 10*6/uL [facility] WBC (Bld) [#/Vol] 7.3 10*3/uL 3.6 - 10.7 10*3/uL [facility] CBC WITH AUTO DIFFERENTIALon 04-17-2025 Basophils (Bld) [#/Vol] 0.1 10*3/uL Normal 0.0-0.2 [facility] Comment on above: Performed By: #### L [id number] ####Weather Strip Mechanic: FENG CONSTANTINO ([id number])[facility] ([facility])[address] [place] [address] Basophils/100 WBC (Bld) 1.4 % Normal 0.0-2.0 [facility] Comment on above: Performed By: #### L [id number] ####Weather Strip Mechanic: FENG CONSTANTINO ([id number])[facility] ([facility])[address] [place] [address] Eosinophils (Bld) [#/Vol] 0.2 10*3/uL Normal 0.0-0.5 [facility] Comment on above: Performed By: #### L [id number] ####Weather Strip Mechanic: FENG CONSTANTINO ([id number])[facility] [place] (SB[facility])[address] [place] [address] Eosinophils/100 WBC (Bld) 3.3 % Normal 0.0-6.0 [facility] Comment on above: Performed By: #### L [id number] ####Weather Strip Mechanic: FENG CONSTANTINO ([id number])[facility] ([facility])[address] [place] [address] Erythrocyte distribution width (RBC) [Ratio] 16.6 % High 11.5-15.0 [facility] Comment on above: Performed By: #### L [id number] ####Weather Strip Mechanic: FENG CONSTANTINO ([id number])[facility] [place] (SBHLAB)[address] Hematocrit (Bld) [Volume fraction] 29.6 % Low 40.0-52.0 [facility] Comment on above: Performed By: #### L [id number] ####Weather Strip Mechanic: FENG CONSTANTINO ([id number])[facility] ([facility])[address] Hemoglobin (Bld) [Mass/Vol] 9.6 g/dL Low 13.0-18.0 [facility] [facility] Comment on above: Performed By: #### L [id number] ####Weather Strip Mechanic: FENG CONSTANTINO ([id number])[facility] (SB[facility])[address] IMMATURE GRANS % 0.4 % Normal 0.0-2.0 [facility] Comment on above: Performed By: #### L [id number] ####Weather Strip Mechanic: FENG CONSTANTINO ([id number])[facility] (SBHLAB)[address] IMMATURE GRANS ABSOLUTE 0.0 10*3/uL Normal <0.1 [facility] Comment on above: Performed By: #### L [id number] ####Weather Strip Mechanic: FENG CONSTANTINO ([id number])[facility] (SBAB)[address] [place] [address] Lymphocytes (Bld) [#/Vol] 1.0 10*3/uL Normal 1.0-4.3 [facility] Comment on above: Performed By: #### L [id number] ####Weather Strip Mechanic: FENG CONSTANTINO ([id number])[facility] (SBAB)[address] [place] [address] [place] Lymphocytes/100 WBC (Bld) 13.3 % Low 15.0-45.0 [facility] Comment on above: Performed By: #### L [id number] ####Weather Strip Mechanic: FENG CONSTANTINO ([id number])[facility] [place] (SBHLAB)[address] MCH (RBC) [Entitic mass] 29.3 pg Normal 26.0-34.0 [facility] Comment on above: Performed By: #### L [id number] ####Weather Strip Mechanic: FENG CONSTANTINO ([id number])[facility] [place] (SBHLAB)[address] MCHC 32.4 % Normal 30.5-36.0 [facility] Comment on above: Performed By: #### L [id number] ####Weather Strip Mechanic: FENG CONSTANTINO ([id number])[facility] [place] (SBHLAB)[address] MCV (RBC) [Entitic vol] 90.2 fL Normal 77.0-99.0 [facility] Comment on above: Performed By: #### L [id number] ####Weather Strip Mechanic: FENG CONSTANTINO ([id number])[facility] [place] (SBHLAB)[address] Monocytes (Bld) [#/Vol] 1.1 10*3/uL High 0.0-0.9 [facility] Comment on above: Performed By: #### L [id number] ####Weather Strip Mechanic: FENG CONSTANTINO ([id number])[facility] [place] (SBHLAB)[address] Monocytes/100 WBC (Bld) 15.2 % High 5.0-13.0 [facility] Comment on above: Performed By: #### L [id number] ####Weather Strip Mechanic: FENG CONSTANTINO ([id number])[facility] [place] (SBHLAB)[address] NEUTROPHILS ABSOLUTE 4.8 10*3/uL Normal 1.8-7.5 [facility] Comment on above: Performed By: #### L [id number] ####Weather Strip Mechanic: FENG CONSTANTINO ([id number])[facility] [place] (SBHLAB)[address] Neutrophils/100 WBC (Bld) 66.4 % Normal 38.0-82.0 [facility] Comment on above: Performed By: #### L [id number] ####Weather Strip Mechanic: FENG COSNTANTINO ([id number])[facility]Matt [place] (SBHLAB)[address] NRBC 0.0 /100 WBCs Normal 0.0-2.0 [facility] Comment on above: Performed By: #### L [id number] ####Weather Strip Mechanic: FENG CONSTANTINO ([id number])[facility] (SBHLAB)[address] Platelet mean volume (Bld) [Entitic vol] 9.3 fL Normal 9.0-12.7 [facility] Comment on above: Performed By: #### L [id number] ####Weather Strip Mechanic: FENG CONSTANTINO ([id number])[facility] [place] (SBHLAB)[address] [place] [address] [place] Platelets (Bld) [#/Vol] 381 10*3/uL Normal 140-440 [facility] Comment on above: Performed By: #### L [id number] ####Weather Strip Mechanic: FENG CONSTANTINO ([id number])[facility] (SBHLAB)[address] [place] [address] [place] RBC (Bld) [#/Vol] 3.28 10*6/uL Low 4.40-5.90 [facility] Comment on above: Performed By: #### L [id number] ####Weather Strip Mechanic: FENG CONSTANTINO ([id number])[facility] [place] (SBHLAB)[address] [place] [address] [place] WBC (Bld) [#/Vol] 7.3 10*3/uL Normal 3.6-10.7 [facility] Comment on above: Performed By: #### L [id number] ####Weather Strip Mechanic: FENG CONSTANTINO ([id number])[facility] [place] (SBHLAB)[address] COMPREHENSIVE METABOLIC PANE Victor M 04-17-2025 Albumin [Mass/Vol] 2.3 g/dL Low 3.5-5.0 [facility] Comment on above: Performed By: #### L [id number] ####Weather Strip Mechanic: FENG CONSTANTINO ([id number])[facility] [place] (SBHLAB)[address] ALP [Catalytic activity/Vol] 294 U/L High 40-150 [facility] Comment on above: Performed By: #### L [id number] ####Weather Strip Mechanic: FENG CONSTANTINO ([id number])[facility] [place] (SBHLAB)[address] ALT [Catalytic activity/Vol] 6 U/L Normal <40 [facility] Comment on above: Performed By: #### L [id number] ####Weather Strip Mechanic: FENG CONSTANTINO ([id number])[facility] [place] (SBHLAB)[address] Anion gap [Moles/Vol] 11 mmol/L Normal 3-13 [facility] Comment on above: Performed By: #### L [id number] ####Weather Strip Mechanic: FENG CONSTANTINO ([id number])[facility] [place] (SBHLAB)[address] AST [Catalytic activity/Vol] 57 U/L High <34 [facility] Comment on above: Performed By: #### L [id number] ####Weather Strip Mechanic: FENG CONSTANTINO ([id number])[facility] [place] (SBHLAB)[address] [place] [address] [place] Bilirubin [Mass/Vol] 0.7 mg/dL Normal <1.2 [facility] Comment on above: Performed By: #### L [id number] ####Weather Strip Mechanic: FENG CONSTANTINO ([id number])[facility] [place] (SBHLAB)[address] [place] [address] [place] Calcium [Mass/Vol] 9.5 mg/dL Normal 8.4-10.2 [facility] Comment on above: Performed By: #### L [id number] ####Weather Strip Mechanic: FENG CONSTANTINO ([id number])[facility]Matt [place] (SBHLAB)[address] Chloride [Moles/Vol] 100 mmol/L Normal 98-107 [facility] Comment on above: Performed By: #### L [id number] ####Weather Strip Mechanic: FENG CONSTANTINO ([id number])[facility] (SBHLAB)[address] CO2 [Moles/Vol] 25 mmol/L Normal 22-29 [facility] Comment on above: Performed By: #### L [id number] ####Weather Strip Mechanic: FENG CONSTANTINO ([id number])[facility] (SBHLAB)[address] Creatinine [Mass/Vol] 4.18 mg/dL High 0.72-1.25 [facility] Comment on above: Performed By: #### L [id number] ####Weather Strip Mechanic: FENG CONSTANTINO ([id number])[facility] (SBHLAB)[address] GLOMERULAR FILTRATION RATE ML/MIN/1.73 SQ M.PREDICTED 15.6 mL/min/1.73m*2 Low >60.0 [facility] Comment on above: Result Comment: Calc ulation based on the Chronic Kidney Disease Epidemiology Collaboration (CKD-EPI) equation refit without adjustment for race Performed By: #### L [id number] ####Weather Strip Mechanic: FENG CONSTANTINO ([id number])[facility] (SBHLAB)[address] Glucose [Mass/Vol] 98 mg/dL Normal 74-100 [facility] Comment on above: Performed By: #### L [id number] ####Weather Strip Mechanic: FENG CONSTANTINO ([id number])[facility] (SBHLAB)[address] Potassium [Moles/Vol] 5.7 mmol/L High 3.5-5.1 [facility] Comment on above: Result Comment: [facility] potassium values may be up to 0.5 mmol/L lower than serum values. Performed By: #### L [id number] ####Weather Strip Mechanic: FENG CONSTANTINO ([id number])[facility] (SBHLAB)[address] Protein [Mass/Vol] 7.7 g/dL Normal 6.4-8.3 [facility] Comment on above: Performed By: #### L [id number] ####Weather Strip Mechanic: FENG CONSTANTINO ([id number])[facility] (SBHLAB)[address] Sodium [Moles/Vol] 136 mmol/L Normal 136-145 [facility] Comment on above: Performed By: #### L [id number] ####Weather Strip Mechanic: FENG CONSTANTINO ([id number])[facility] (SBHLAB)[address] Urea nitrogen [Mass/Vol] 48 mg/dL High 9-23 [facility] Comment on above: Performed By: #### L [id number] ####Weather Strip Mechanic: FENG CONSTANTINO ([id number])[facility] (SBHLAB)[address] [place] [address] Comprehensive metabolic 1998 panelon 04-17-2025 Albumin [Mass/Vol] 2.3 g/dL Low 3.5 - 5.0 g/dL [facility] ALP [Catalytic activity/Vol] 294 U/L High 40 - 150 U/L [facility] ALT [Catalytic activity/Vol] 6 U/L NINF - 40 U/L [facility] Anion gap [Moles/Vol] 11 mmol/L 3 - 13 mmol/L [facility] AST [Catalytic activity/Vol] 57 U/L High NINF - 34 U/L [facility] Bilirubin [Mass/Vol] 0.7 mg/dL NINF - 1.2 mg/dL [facility] Calcium [Mass/Vol] 9.5 mg/dL 8.4 - 10. 2 mg/dL [facility] Chloride [Moles/Vol] 100 mmol/L 98 - 10 7 mmol/L [facility] CO2 [Moles/Vol] 25 mmol/L 22 - 29 mmol/L [facility] Creatinine [Mass/Vol] 4.18 mg/dL High 0.72 - 1.25 mg/dL [facility] GFR/1.73 sq M.predicted (S/P/Bld) [Vol rate/Area] 15.6 mL/min Low - PINF [facility] Comment on above: Calculation based on the Chronic Kidney Disease Epidemiology Collaboration (CKD-EPI) equation refit without adjustment for race Glucose [Mass/Vol] 98 mg/dL 74 - 100 mg/dL [facility] Interpretation and review of laboratory results Abnormal [facility] Potassium [Moles/Vol] 5.7 mmol/L High 3.5 - 5.1 mmol/L [facility] Comment on above: Plasma potassium macey ues may be up to 0.5 mmol/L lower than serum values. Protein [Mass/Vol] 7.7 g/dL 6.4 - 8.3 g/dL [facility] Sodium [Moles/Vol] 136 mmol/L 136 - 145 mmol/L [facility] Urea nitrogen [Mass/Vol] 48 mg/dL High 9 - 23 mg/d L [facility] ED Nursing Noteon 04-17-2025 ED Nursing Note Report called to [facility] [place]. Normal [facility] ED Nursing Note PIV placed, blood collected for lab work, pt states it hurts and he does not want an PIV left in, If I leave it he will rip it out. PIV Dc'd Normal [facility] ED Provider Noteon 5 ED Provider Note Normal [facility] - CoagulationOrde red By: Yifan Howard on 04-17-2025 PT Coag (Bld) [Time] s High 9.0 - 12.0 s [facility] PROTHROMBIN TIMEon 5 INR Coag (PPP) [Relative time] {INR} Critically high 0.9-1.1 [facility] Comment on above: Performed By: #### L [id number] ####Weather Strip Mechanic: FENG CONSTANTINO ([id number])[facility] (SBHLAB)[address] [place] [address] [facility] PT Coag (PPP) [Time] s High 9.0-12.0 [facility] Comment on above: Performed By: #### L [id number] ####Weather Strip Mechanic: FENG CONSTANTINO ([phone])[facility] [place] (SBHLAB)[address] [place] [address] [facility] PT Coag (Bld) [Time]Ordered By: Yifan Howard on 04-17-2025 INR Coag (PPP) [Relative time] Critically high 0.9 - 1.1 [facility] Interpretation and review of laboratory results Abnormal [facility] Prothrombin Time w/INRon INR Coag (PPP) [Relative time] 10.8 {INR} Invalid Interpretation Code [facility] Comment on above: Order Comment: 412.2 Result Comment: CRIT ICAL VALUE CALLED TO LEXX BERG ([facility]) 04/17/25 0831 Brett Stack. RESULTS READ BACK BY SAME. Performed By: #### L 100.0100, L500.4050, L300.3900 #### [facility] [address] [place], [address] PT Coag (PPP) [Time] 87.5 s High 11.7-14.9 [facility] Comment on above: Order Comment: 412.2 Performed By: #### L 100.0100, L500.4050, L300.3900 #### [facility] [address] [place], [address] CBC W/Diff, Automatedon 03-28 Absolute Lymph 0.94 X10 3/uL Normal 0.83-4.51 [facility] Comment on above: Order Comment: 412.2 Performed By: #### L 100.0100, L500.4050, L300.3900 #### [facility] [address] [place], [address] Absolute Neut 3.9 X10 3/uL Normal 2.0-7.7 [facility] Comment on above: Order Comment: 412.2 Performed By: #### L 100.0100, L500.4050, L300.3900 #### [facility] [address] [place], [address] Basophils/100 WBC (Bld) 1.7 % High 0-1 [facility] Comment on above: Order Comment: 412.2 Performed By: #### L 100.0100, L500.4050, L300.3900 #### [facility] [address] [place], [address] Eosinophils/100 WBC (Bld) 4.3 % Normal 0-5 [facility] Comment on above: Order Comment: 412.2 Performed By: #### L 100.0100, L500.4050, L300.3900 #### [facility] [address] [place], [address] Erythrocyte distribution width (RBC) [Ratio] 16.3 % High 11.6-14.6 [facility] Comment on above: Order Comment: 412.2 Performed By: #### L 100.0100, L500.4050, L300.3900 #### [facility] [address] [place], [address] Hematocrit (Bld) [Volume fraction] 29.3 % Low 40-54 [facility] Comment on above: Order Comment: 412.2 Performed By: #### L 100.0100, L500.4050, L300.3900 #### [facility] [address] [place], [address] Hemoglobin (Bld) [Mass/Vol] 9.4 g/dL Low 13.0-16.5 [facility] Comment on above: Order Comment: 412.2 Performed By: #### L 100.0100, L500.4050, L300.3900 #### [facility] [address] [place], [address] IG% 0.800 Normal 0.0-0.9 [facility] Comment on above: Order Comment: 412.2 Result Comment: IG% - Immature Granulocytes (promyelocytes, myelocytes and metamyelocytes) > 1% indicates that a LEFT SHIFT is Present. Performed By: #### L 100.0100, L500.4050, L300.3900 #### [facility] [address] [place], [address] Lymphocytes/100 WBC (Bld) 15.7 % Low 19-41 [facility] Comment on above: Order Comment: 412.2 Performed By: #### L 100.0100, L500.4050, L300.3900 #### [facility] [address] [place], [address] MCH (RBC) [Entitic mass] 29.7 pg Normal 27.0-32.0 [facility] Comment on above: Order Comment: 412.2 Performed By: #### L 100.0100, L500.4050, L300.3900 #### [facility] [address] [place], [address] MCHC (RBC) [Mass/Vol] 32.1 g/dL Normal 32-36 [facility] Comment on above: Order Comment: 412.2 Performed By: #### L 100.0100, L500.4050, L300.3900 #### [facility] [address] [place], [address] MCV (RBC) [Entitic vol] 92.4 fL Normal 80-94 [facility] Comment on above: Order Comment: 412.2 Performed By: #### L 100.0100, L500.4050, L300.3900 #### [facility] [address] [place], [address] Monocytes/100 WBC (Bld) 13.0 % High 0-10 [facility] Comment on above: Order Comment: 412.2 Performed By: #### L 100.0100, L500.4050, L300.3900 #### [facility] [address] [place], [address] Neutrophils/100 WBC (Bld) 64.5 % Normal 47-70 [facility] Comment on above: Order Comment: 412.2 Performed By: #### L 100.0100, L500.4050, L300.3900 #### [facility] [address] [place], [address] Nucleated RBC (Bld) [#/Vol] 0 10*3/uL Normal 0-5 [facility] Comment on above: Order Comment: 412.2 Performed By: #### L 100.0100, L500.4050, L300.3900 #### [facility] [address] [place], [address] Platelet mean volume (Bld) [Entitic vol] 9.5 fL Normal 6.2-12.0 [facility] Comment on above: Order Comment: 412.2 Performed By: #### L 100.0100, L500.4050, L300.3900 #### [facility] [address] [place], [address] Platelets (Bld) [#/Vol] 397 10*3/uL Normal 150-450 [facility] Comment on above: Order Comment: 412.2 Performed By: #### L 100.0100, L500.4050, L300.3900 #### [facility] [address] [place], [address] RBC (Bld) [#/Vol] 3.17 10*6/uL Low 4.6-6.[address] [facility] Comment on above: Order Comment: 412.2 Performed By: #### L 100.0100, L500.4050, L300.3900 #### [facility] [address] [place], [address] RDW SD 54.5 fl High 35.1-43.9 [facility] Comment on above: Order Comment: 412.2 Performed By: #### L 100.0100, L500.4050, L300.3900 #### [facility] [address] [place], [address] WBC (Bld) [#/Vol] 6.0 10*3/uL Normal 4.4-11.[address] [facility] Comment on above: Order Comment: 412.2 Performed By: #### L 100.0100, L500.4050, L300.3900 #### [facility] [address] [place], [address] CT CHEST WO IV CONTRASTon CT CHEST WO IV CONTRAST Normal S [facility] Metabolic Prof ilon 04-16-2025 Albumin [Mass/Vol] 3.1 g/dL Low 3.5-5.[address] [facility] Comment on above: Order Comment: 412.2 Performed By: #### L 100.0100, L500.4050, L300.3900 #### [facility] [address] [place], [address] Albumin/Globulin [Mass ratio] 0.7 {ratio} Low 0.9-2.4 [facility] Comment on above: Order Comment: 412.2 Performed By: #### L 100.0100, L500.4050, L300.3900 #### [facility] [address] [place], [address] ALK PHOS 331 U/L High 40-129 [facility] Comment on above: Order Comment: 412.2 Performed By: #### L 100.0100, L500.4050, L300.3900 #### [facility] [address] [place], [address] ALT [Catalytic activity/Vol] 13 U/L Normal <=46 [facility] Comment on above: Order Comment: 412.2 Performed By: #### L 100.0100, L500.4050, L300.3900 #### [facility] [address] [place], [address] AST [Catalytic activity/Vol] 41 U/L High <=37 [facility] Comment on above: Order Comment: 412.2 Performed By: #### L 100.0100, L500.4050, L300.3900 #### [facility] [address] [place], [address] Bilirubin [Mass/Vol] 0.68 mg/dL Normal 0.00-1.30 [facility] Comment on above: Order Comment: 412.2 Performed By: #### L 100.0100, L500.4050, L300.3900 #### [facility] [address] [place], [address] BUN/CRE 13.0 RATIO Normal 10-20 [facility] Comment on above: Order Comment: 412.2 Performed By: #### L 100.0100, L500.4050, L300.3900 #### [facility] [address] [place], [address] Calcium [Mass/Vol] 10.2 mg/dL Normal 7.6-11.[address] [facility] Comment on above: Order Comment: 412.2 Performed By: #### L 100.0100, L500.4050, L300.3900 #### [facility] [address] [place], [address] Chloride [Moles/Vol] 96 mmol/L Low 98-108 [facility] Comment on above: Order Comment: 412.2 Performed By: #### L 100.0100, L500.4050, L300.3900 #### [facility] [address] [place], [address] CO2 [Moles/Vol] 22.7 mmol/L Normal 21.0-32.0 [facility] Comment on above: Order Comment: 412.2 Performed By: #### L 100.0100, L500.4050, L300.3900 #### [facility] [address] [place], [address] Creatinine [Mass/Vol] 5.22 mg/dL High 0.70-1.20 [facility] Comment on above: Order Comment: 412.2 Performed By: #### L 100.0100, L500.4050, L300.3900 #### [facility] [address] [place], [address] GAP 16 High 5-15 [facility] Comment on above: Order Comment: 412.2 Performed By: #### L 100.0100, L500.4050, L300.3900 #### [facility] [address] [place], [address] GFR/1.73 sq M.predicted among non-blacks MDRD (S/P/Bld) [Vol rate/Area] 12 mL/min/{1.73_m2} Low >60 [facility] Comment on above: Order Comment: 412.2 Result Comment: mL/m in/1.73m2 CKD-EPI Creatinine Equation (2020) Performed By: #### L 100.0100, L500.4050, L300.3900 #### [facility] [address] [place], [address] Globulin (S) [Mass/Vol] 4.4 g/dL High 2.2-4.2 [facility] Comment on above: Order Comment: 412.2 Performed By: #### L 100.0100, L500.4050, L300.3900 #### [facility] [address] [place], [address] Glucose [Mass/Vol] 91 mg/dL Normal 70-[address] [facility] Comment on above: Order Comment: 412.2 Performed By: #### L 100.0100, L500.4050, L300.3900 #### [facility] [address] [place], [address] Potassium [Moles/Vol] 6.1 mmol/L Invalid Interpretation Code 3.3-5.1 [facility] Comment on above: Order Comment: 412.2 Result Comment: Crit ical Result(s) Called to: Cindy PITT ([facility]) by: Ella??Results read back by same. Performed By: #### L 100.0100, L500.4050, L300.3900 #### [facility] [address] [place], [address] Sodium [Moles/Vol] 134 mmol/L Normal 133-[address] [facility] Comment on above: Order Comment: 412.2 Performed By: #### L 100.0100, L500.4050, L300.3900 #### [facility] [address] [place], [address] T PROT 7.5 g/dL Normal 5.9-8.4 [facility] Comment on above: Order Comment: 412.2 Performed By: #### L 100.0100, L500.4050, L300.3900 #### [facility] [address] [place], [address] Urea nitrogen [Mass/Vol] 68 mg/dL High 4-19 [facility] Comment on above: Order Comment: 412.2 Performed By: #### L 100.0100, L500.4050, L300.3900 #### [facility] [address] [place], [address] Prothrombin Time w/INRon INR Coag (PPP) [Relative time] 7.7 {INR} Invalid Interpretation Code [facility] Comment on above: Order Comment: 412.2 Performed By: #### L 100.0100, L500.4050, L300.3900 #### [facility] [address] [place], [address] PT Coag (PPP) [Time] 66.6 s High 11.7-14.9 [facility] Comment on above: Order Comment: 412.2 Performed By: #### L 100.0100, L500.4050, L300.3900 #### [facility] [address] [place], [address] Prothrombin Time w/INRon INR Coag (PPP) [Relative time] 3.7 {INR} Normal [facility] Comment on above: Order Comment: 412.2 Performed By: #### L 100.0100, L500.4050, L300.3900 #### [facility] [address] [place], [address] PT Coag (PPP) [Time] 37.3 s High 11.7-14.9 [facility] Comment on above: Order Comment: 412.2 Performed By: #### L 100.0100, L500.4050, L300.3900 #### [facility] [facility] [address] [place], [address] 36on 04-11-2025 36 Scheduled next avail with Dr. Mata. 36 Name of Caller: Sabino Contact Reason for Appointment: Sabino requesting to schedule patient appointment for podiatry. Please advise. Office Name: Ortho Medication Refills need, if any: n/a Medication Name: n/a BASIC METABOLIC PANELon 03-27 Anion gap [Moles/Vol] 14 mmol/L High 3-13 [facility] Comment on above: Performed By: #### L [id number] ####Weather Strip Mechanic: FENG CONSTANTINO ([id number])[facility] [place] (SBHLAB)[address] Calcium [Mass/Vol] 9.6 mg/dL Normal 8.4-10.2 [facility] Comment on above: Performed By: #### L [id number] ####Weather Strip Mechanic: FENG CONSTANTINO ([id number])[facility] [place] (SBHLAB)[address] Chloride [Moles/Vol] 96 mmol/L Low 98-107 [facility] Comment on above: Performed By: #### L [id number] ####Weather Strip Mechanic: FENG CONSTANTINO ([id number])[facility] (SBHLAB)[address] CO2 [Moles/Vol] 26 mmol/L Normal 22-29 [facility] Comment on above: Performed By: #### L [id number] ####Weather Strip Mechanic: FENG CONSTANTINO ([id number])[facility] [place] [facility] (SBHLAB)[address] Creatinine [Mass/Vol] 3.07 mg/dL High 0.72-1.25 [facility] Comment on above: Performed By: #### L AB15 ####Weather Strip Mechanic: FENG CONSTANTINO ([id number])[facility] (SBHLAB)155 [place] [address] [place] GLOMERULAR FILTRATION RATE ML/MIN/1.73 SQ M.PREDICTED 22.6 mL/min/1.73m*2 Low >60.0 [facility] Comment on above: Result Comment: Calc ulation based on the Chronic Kidney Disease Epidemiology Collaboration (CKD-EPI) equation refit without adjustment for race Performed By: #### L [id number] ####Weather Strip Mechanic: FENG CONSTANTINO ([id number])[facility] [place] (SBHLAB)[address] Glucose [Mass/Vol] 80 mg/dL Normal 74-100 [facility] Comment on above: Performed By: #### L AB15 ####Weather Strip Mechanic: FENG DOUGIE ([id number])[facility] (SBHLAB)[address] Potassium [Moles/Vol] 4.6 mmol/L Normal 3.5-5.1 [facility] Comment on above: Result Comment: [facility] potassium values may be up to 0.5 mmol/L lower than serum values. Performed By: #### L AB15 ####Weather Strip Mechanic: FENG VILLAGOMEZALESIA ([id number])[facility] [place] [facility] (SBHLAB)[address] Sodium [Moles/Vol] 136 mmol/L Normal 136-145 [facility] Comment on above: Performed By: #### L AB15 ####Weather Strip Mechanic: FENG COLEGEORGE ([id number])[facility] (SBHLAB)[address] Urea nitrogen [Mass/Vol] 33 mg/dL High 9-23 [facility] Comment on above: Performed By: #### L AB15 ####Weather Strip Mechanic: FENG VILLAGOMEZALESIA ([id number])[facility] (SBHLAB)[address] Basic metabolic 1998 panelon 04-09-2025 Anion gap [Moles/Vol] 14 mmol/L High 3 - 13 mmol/L [facility] Calcium [Mass/Vol] 9.6 mg/dL 8.4 - 10. 2 mg/dL [facility] Chloride [Moles/Vol] 96 mmol/L Low 98 - 10 7 mmol/L [facility] CO2 [Moles/Vol] 26 mmol/L 22 - 29 mmol/L [facility] Creatinine [Mass/Vol] 3.07 mg/dL High 0.72 - 1.25 mg/dL [facility] GFR/1.73 sq M.predicted (S/P/Bld) [Vol rate/Area] 22.6 mL/min Low - PINF [facility] Comment on above: Calculation based on the Chronic Kidney Disease Epidemiology Collaboration (CKD-EPI) equation refit without adjustment for race Glucose [Mass/Vol] 80 mg/dL 74 - 100 mg/dL [facility] Interpretation and review of laboratory results Abnormal [facility] Potassium [Moles/Vol] 4.6 mmol/L 3.5 - 5.1 mmol/L [facility] Comment on above: Plasma potassium macey ues may be up to 0.5 mmol/L lower than serum values. Sodium [Moles/Vol] 136 mmol/L 136 - 145 mmol/L [facility] Urea nitrogen [Mass/Vol] 33 mg/dL High 9 - 23 mg/d L [facility] CBC W Auto Differential pane l (Bld)on 04-09-2025 Basophils (Bld) [#/Vol] 0.1 10*3/uL 0.0 - 0.2 10*3/uL [facility] Basophils/100 WBC (Bld) 1.2 % 0.0 - 2.0 % [facility] Eosinophils (Bld) [#/Vol] 0.3 10*3/uL 0.0 - 0.5 10*3/uL [facility] Eosinophils/100 WBC (Bld) 3.3 % 0.0 - 6.0 % [facility] Erythrocyte distribution width (RBC) [Ratio] 15.9 % High 11.5 - 15.0 % [facility] Hematocrit (Bld) [Volume fraction] 29.3 % Low 40.0 - 52.0 % [facility] Hemoglobin (Bld) [Mass/Vol] 9.5 g/dL Low 13.0 - 18.0 g/dL [facility] Immature granulocytes (Bld) [#/Vol] 0 10*3/uL NINF - 0.1 10*3/uL [facility] Immature granulocytes/100 WBC (Bld) 0.5 % 0.0 - 2.0 % [facility] Interpretation and review of laboratory results Abnormal [facility] Lymphocytes (Bld) [#/Vol] 1.1 10*3/uL 1.0 - 4.3 10*3/uL [facility] Lymphocytes/100 WBC (Bld) 13.9 % Low 15.0 - 45.0 % [facility] MCH (RBC) [Entitic mass] 29.3 pg 26. 0 - 34.0 pg [facility] MCHC (RBC) [Mass/Vol] 32.4 % 30.5 - 36.0 % [facility] MCV (RBC) [Entitic vol] 90.4 fL 77.0 - 99.0 fL [facility] Monocytes (Bld) [#/Vol] 0.8 10*3/uL 0.0 - 0.9 10*3/uL [facility] Monocytes/100 WBC (Bld) 9.8 % 5.0 - 13.0 % [facility] Neutrophils (Bld) [#/Vol] 5.5 10*3/uL 1.8 - 7.5 10*3/uL [facility] Neutrophils/100 WBC (Bld) 71.3 % 38.0 - 82.0 % [facility] Nucleated RBC/100 WBC (Bld) [Ratio] 0 % [facility] Platelet mean volume (Bld) [Entitic vol] 9 fL 9.0 - 12.7 fL [facility] Platelets (Bld) [#/Vol] 354 10*3/uL 140 - 440 10*3/uL [facility] RBC (Bld) [#/Vol] 3.24 10*6/uL Low 4.40 - 5.9 0 10*6/uL [facility] WBC (Bld) [#/Vol] 7.8 10*3/uL 3.6 - 10.7 10*3/uL [facility] CBC W/Diff, Automatedon -09 30-2024 Absolute Lymph 1.07 X10 3/uL Normal 0.83-4.51 [facility] Comment on above: Performed By: #### L 300.3900 #### [facility] [address] [place], [address] Absolute Neut 4.8 X10 3/uL Normal 2.0-7.7 [facility] Comment on above: Performed By: #### L 300.3900 #### [facility] [address] [place], [address] Basophils/100 WBC (Bld) 1.5 % High 0-1 [facility] Comment on above: Performed By: #### L 300.3900 #### [facility] [address] [place], [address] Eosinophils/100 WBC (Bld) 4.6 % Normal 0-5 [facility] Comment on above: Performed By: #### L 300.3900 #### [facility] [address] [place], [address] Erythrocyte distribution width (RBC) [Ratio] 16.0 % High 11.6-14.6 [facility] Comment on above: Performed By: #### L 300.3900 #### [facility] [address] [place], [address] Hematocrit (Bld) [Volume fraction] 29.7 % Low 40-54 [facility] Comment on above: Performed By: #### L 300.3900 #### [facility] [address] [place], [address] Hemoglobin (Bld) [Mass/Vol] 9.5 g/dL Low 13.0-16.5 [facility] Comment on above: Performed By: #### L 300.3900 #### [facility] [address] [place], [address] IG% 0.700 Normal 0.0-0.9 [facility] Comment on above: Result Comment: IG% - Immature Granulocytes (promyelocytes, myelocytes and metamyelocytes) > 1% indicates that a LEFT SHIFT is Present. Performed By: #### L 300.3900 #### [facility] [address] [place], [address] Lymphocytes/100 WBC (Bld) 15.0 % Low 19-41 [facility] Comment on above: Performed By: #### L 300.3900 #### [facility] [address] [place], [address] MCH (RBC) [Entitic mass] 30.4 pg Normal 27.0-32.0 [facility] Comment on above: Performed By: #### L 300.3900 #### [facility] [address] [place], [address] MCHC (RBC) [Mass/Vol] 32.0 g/dL Normal 32-36 [facility] Comment on above: Performed By: #### L 300.3900 #### [facility] [address] [place], [address] MCV (RBC) [Entitic vol] 94.9 fL High 80-94 [facility] Comment on above: Performed By: #### L 300.3900 #### [facility] [address] [place], [address] Monocytes/100 WBC (Bld) 10.8 % High 0-10 [facility] Comment on above: Performed By: #### L 300.3900 #### [facility] [address] [place], [address] Neutrophils/100 WBC (Bld) 67.4 % Normal 47-70 [facility] Comment on above: Performed By: #### L 300.3900 #### [facility] [address] [place], [address] Nucleated RBC (Bld) [#/Vol] 0 10*3/uL Normal 0-5 [facility] Comment on above: Performed By: #### L 300.3900 #### [facility] [address] [place], [address] Platelet mean volume (Bld) [Entitic vol] 9.3 fL Normal 6.2-12.0 [facility] Comment on above: Performed By: #### L 300.3900 #### [facility] [address] [place], [address] Platelets (Bld) [#/Vol] 390 10*3/uL Normal 150-450 [facility] Comment on above: Performed By: #### L 300.3900 #### [facility] [address] [place], [address] RBC (Bld) [#/Vol] 3.13 10*6/uL Low 4.6-6.[address] [facility] Comment on above: Performed By: #### L 300.3900 #### [facility] [address] [place], [address] RDW SD 55.3 fl High 35.1-43.9 [facility] Comment on above: Performed By: #### L 300.3900 #### [facility] [address] [place], [address] WBC (Bld) [#/Vol] 7.2 10*3/uL Normal 4.4-11.[address] [facility] Comment on above: Performed By: #### L 300.3900 #### [facility] [address] [place], [address] CBC WITH AUTO DIFFERENTIALon 04-09-2025 Basophils (Bld) [#/Vol] 0.1 10*3/uL Normal 0.0-0.2 [facility] Comment on above: Performed By: #### L [id number] ####Weather Strip Mechanic: FENG CONSTANTINO ([id number])[facility] [place] (SBHLAB)[address] [place] [address] Basophils/100 WBC (Bld) 1.2 % Normal 0.0-2.0 [facility] Comment on above: Performed By: #### L [id number] ####Weather Strip Mechanic: FENG CONSTANTINO ([id number])[facility] [place] (SBHLAB)[address] [place] [address] [place] Eosinophils (Bld) [#/Vol] 0.3 10*3/uL Normal 0.0-0.5 [facility] Comment on above: Performed By: #### L [id number] ####Weather Strip Mechanic: FENG CONSTANTINO ([id number])[facility] [place] (SBHLAB)[address] [place] [address] [place] Eosinophils/100 WBC (Bld) 3.3 % Normal 0.0-6.0 [facility] Comment on above: Performed By: #### L [id number] ####Weather Strip Mechanic: FENG CONSTANTINO ([id number])[facility] [place] [address] Erythrocyte distribution width (RBC) [Ratio] 15.9 % High 11.5-15.0 [facility] Comment on above: Performed By: #### L [id number] ####Weather Strip Mechanic: FENG CONSTANTINO ([id number])[facility] [place] [address] Hematocrit (Bld) [Volume fraction] 29.3 % Low 40.0-52.0 [facility] Comment on above: Performed By: #### L [id number] ####Weather Strip Mechanic: FENG CONSTANTINO ([id number])[facility]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 [place] 04/03/25, and he is at [facility]. Spoke to Rosa and left message for nurse to call about appointment. Normal [facility] CBC W/Diff, Automatedon 07- Absolute Lymph 0.83 X10 3/uL Normal 0.83-4.51 [facility] Comment on above: Order Comment: 412.2 Performed By: #### L 100.0100, [id number], L300.3900 #### [facility] [address] [place], [address] Absolute Neut 4.2 X10 3/uL Normal 2.0-7.7 [facility] Comment on above: Order Comment: 412.2 Performed By: #### L 100.0100, [id number], L300.3900 #### [facility] [address] [place], [address] Basophils/100 WBC (Bld) 1.9 % High 0-1 [facility] Comment on above: Order Comment: 412.2 Performed By: #### L 100.0100, [id number], L300.3900 #### [facility] [address] [place], [address] Eosinophils/100 WBC (Bld) 3.5 % Normal 0-5 [facility] Comment on above: Order Comment: 412.2 Performed By: #### L 100.0100, [id number], L300.3900 #### [facility] [address] [place], [address] Erythrocyte distribution width (RBC) [Ratio] 16.3 % High 11.6-14.6 [facility] Comment on above: Order Comment: 412.2 Performed By: #### L 100.0100, [id number], L300.3900 #### [facility] [address] [place], [address] Hematocrit (Bld) [Volume fraction] 32.8 % Low 40-54 [facility] Comment on above: Order Comment: 412.2 Performed By: #### L 100.0100, [id number], L300.3900 #### [facility] [address] [place], [address] Hemoglobin (Bld) [Mass/Vol] 10.1 g/dL Low 13.0-16.5 [facility] Comment on above: Order Comment: 412.2 Performed By: #### L 100.0100, [id number], L300.3900 #### [facility] [address] [place], [address] IG% 0.500 Normal 0.0-0.9 [facility] Comment on above: Order Comment: 412.2 Result Comment: IG% - Immature Granulocytes (promyelocytes, myelocytes and metamyelocytes) > 1% indicates that a LEFT SHIFT is Present. Performed By: #### L 100.0100, [id number], L300.3900 #### [facility] [address] [place], [address] Lymphocytes/100 WBC (Bld) 13.2 % Low 19-41 [facility] Comment on above: Order Comment: 412.2 Performed By: #### L 100.0100, [id number], L300.3900 #### [facility] [address] [place], [address] MCH (RBC) [Entitic mass] 30.1 pg Normal 27.0-32.0 [facility] Comment on above: Order Comment: 412.2 Performed By: #### L 100.0100, [id number], L300.3900 #### [facility] [address] [place], [address] MCHC (RBC) [Mass/Vol] 30.8 g/dL Low 32-36 [facility] Comment on above: Order Comment: 412.2 Performed By: #### L 100.0100, [id number], L300.3900 #### [facility] [address] [place], [address] MCV (RBC) [Entitic vol] 97.6 fL High 80-94 [facility] Comment on above: Order Comment: 412.2 Performed By: #### L 100.0100, [id number], L300.3900 #### [facility] [address] [place], [address] Monocytes/100 WBC (Bld) 14.3 % High 0-10 [facility] Comment on above: Order Comment: 412.2 Performed By: #### L 100.0100, [id number], L300.3900 #### [facility] [address] [place], [address] Neutrophils/100 WBC (Bld) 66.6 % Normal 47-70 [facility] Comment on above: Order Comment: 412.2 Performed By: #### L 100.0100, [id number], L300.3900 #### [facility] [address] [place], [address] Nucleated RBC (Bld) [#/Vol] 0 10*3/uL Normal 0-5 [facility] Comment on above: Order Comment: 412.2 Performed By: #### L 100.0100, [id number], L300.3900 #### [facility] [address] [place], [address] Platelet mean volume (Bld) [Entitic vol] 9.4 fL Normal 6.2-12.0 [facility] Comment on above: Order Comment: 412.2 Performed By: #### L 100.0100, L500.4050, L300.3900 #### [facility] [address] [place], [address] Platelets (Bld) [#/Vol] 383 10*3/uL Normal 150-450 [facility] Comment on above: Order Comment: 412.2 Performed By: #### L 100.0100, L500.4050, L300.3900 #### [facility] [address] [place], [address] RBC (Bld) [#/Vol] 3.36 10*6/uL Low 4.6-6.[address] [facility] Comment on above: Order Comment: 412.2 Performed By: #### L 100.0100, L500.4050, L300.3900 #### [facility] [address] [place], [address] RDW SD 58.6 fl High 35.1-43.9 [facility] Comment on above: Order Comment: 412.2 Performed By: #### L 100.0100, L500.4050, L300.3900 #### [facility] [address] [place], [address] WBC (Bld) [#/Vol] 6.3 10*3/uL Normal 4.4-11.[address] [facility] Comment on above: Order Comment: 412.2 Performed By: #### L 100.0100, L500.4050, L300.3900 #### [facility] [address] [place], [address] Comprehensive Metabolic Prof aron 04-02-2025 Albumin [Mass/Vol] 3.2 g/dL Low 3.5-5.[address] [facility] Comment on above: Order Comment: 412.2 Performed By: #### L 100.0100, L500.4050, L300.3900 #### [facility] [address] [place], [address] Albumin/Globulin [Mass ratio] 0.8 {ratio} Low 0.9-2.4 [facility] Comment on above: Order Comment: 412.2 Performed By: #### L 100.0100, L500.4050, L300.3900 #### [facility] [address] [place], [address] ALK PHOS 229 U/L High 40-129 [facility] Comment on above: Order Comment: 412.2 Performed By: #### L 100.0100, L500.4050, L300.3900 #### [facility] [address] [place], [address] ALT [Catalytic activity/Vol] 20 U/L Normal <=46 [facility] Comment on above: Order Comment: 412.2 Performed By: #### L 100.0100, L500.4050, L300.3900 #### [facility] [address] [place], [address] AST [Catalytic activity/Vol] 46 U/L High <=37 [facility] Comment on above: Order Comment: 412.2 Performed By: #### L 100.0100, L500.4050, L300.3900 #### [facility] [address] [place], [address] Bilirubin [Mass/Vol] 0.74 mg/dL Normal 0.00-1.30 [facility] Comment on above: Order Comment: 412.2 Performed By: #### L 100.0100, L500.4050, L300.3900 #### [facility] [address] [place], [address] BUN/CRE 8.2 RATIO Low 10-20 [facility] Comment on above: Order Comment: 412.2 Performed By: #### L 100.0100, L500.4050, L300.3900 #### [facility] [address] [place], [address] Calcium [Mass/Vol] 9.9 mg/dL Normal 7.6-11.[address] [facility] Comment on above: Order Comment: 412.2 Performed By: #### L 100.0100, L500.4050, L300.3900 #### [facility] [address] [place], [address] Chloride [Moles/Vol] 98 mmol/L Normal 98-108 [facility] Comment on above: Order Comment: 412.2 Performed By: #### L 100.0100, L500.4050, L300.3900 #### [facility] [address] [place], [address] CO2 [Moles/Vol] 25.9 mmol/L Normal 21.0-32.0 [facility] Comment on above: Order Comment: 412.2 Performed By: #### L 100.0100, L500.4050, L300.3900 #### [facility] [address] [place], [address] Creatinine [Mass/Vol] 5.14 mg/dL High 0.70-1.20 [facility] Comment on above: Order Comment: 412.2 Performed By: #### L 100.0100, L500.4050, L300.3900 #### [facility] [address] [place], [address] GAP 12 Normal 5-15 [facility] Comment on above: Order Comment: 412.2 Performed By: #### L 100.0100, L500.4050, L300.3900 #### [facility] [address] [place], [address] GFR/1.73 sq M.predicted among non-blacks MDRD (S/P/Bld) [Vol rate/Area] 12 mL/min/{1.73_m2} Low >60 [facility] Comment on above: Order Comment: 412.2 Result Comment: mL/m in/1.73m2 CKD-EPI Creatinine Equation (2020) Performed By: #### L 100.0100, L500.4050, L300.3900 #### [facility] [address] [place], [address] Globulin (S) [Mass/Vol] 4.2 g/dL Normal 2.2-4.2 [facility] Comment on above: Order Comment: 412.2 Performed By: #### L 100.0100, L500.4050, L300.3900 #### [facility] [address] [place], [address] Glucose [Mass/Vol] 84 mg/dL Normal 70-[address] [facility] Comment on above: Order Comment: 412.2 Performed By: #### L 100.0100, L500.4050, L300.3900 #### [facility] [address] [place], [address] Potassium [Moles/Vol] 5.6 mmol/L High 3.3-5.1 [facility] Comment on above: Order Comment: 412.2 Performed By: #### L 100.0100, L500.4050, L300.3900 #### [facility] [address] [place], [address] Sodium [Moles/Vol] 136 mmol/L Normal 133-[address] [facility] Comment on above: Order Comment: 412.2 Performed By: #### L 100.0100, L500.4050, L300.3900 #### [facility] [address] [place], [address] T PROT 7.5 g/dL Normal 5.9-8.4 [facility] Comment on above: Order Comment: 412.2 Performed By: #### L 100.0100, L500.4050, L300.3900 #### [facility] [address] [place], [address] Urea nitrogen [Mass/Vol] 42 mg/dL High 4-19 [facility] Comment on above: Order Comment: 412.2 Performed By: #### L 100.0100, L500.4050, L300.3900 #### [facility] [address] [place], [address] Prothrombin Time w/INRon INR Coag (PPP) [Relative time] 2.1 {INR} Normal [facility] Comment on above: Order Comment: 412.2 Performed By: #### L 100.0100, L500.4050, L300.3900 #### [facility] [address] [place], [address] PT Coag (PPP) [Time] 23.9 s High 11.7-14.9 [facility] Comment on above: Order Comment: 412.2 Performed By: #### L 100.0100, L500.4050, L300.3900 #### [facility] [address] [place], [address] Prothrombin Time w/INRon INR Coag (PPP) [Relative time] 3.4 {INR} Normal [facility] Comment on above: Performed By: #### L 100.0100, L500.4050, L300.3900 #### [facility] [address] [place], [address] PT Coag (PPP) [Time] 35.4 s High 11.7-14.9 [facility] Comment on above: Performed By: #### L 100.0100, L500.4050, L300.3900 #### [facility] [address] [place], [address] 36on 03-26-2025 36 3rd attempt unable to speak to Sabino she's not in the office at them moment. Left message to call the office back to schedule [place] [address] Sabino has been notified the visit can not be virtual [place] [address] Name of Caller: Bobbi Rodriguezworth Contact Reason for Appointment: Change 04/05/25 hospital follow up to a vv. Please call and advise. Office Name: [facility] Neurology Cindy CBC W/Diff, Automatedon 02-27 Anisocytosis Ql (Bld) 1+ Normal [facility] Comment on above: Order Comment: 412.2 Performed By: #### L 100.0100, L500.4050, L300.3900 #### [facility] [address] [place], [address] Comprehensive Metabolic Prof ilon 03-26-2025 Albumin [Mass/Vol] 3.2 g/dL Low 3.5-5.[address] [facility] Comment on above: Order Comment: 412.2 Performed By: #### L 100.0100, L500.4050, L300.3900 #### [facility] [address] [place], [address] Albumin/Globulin [Mass ratio] 0.8 {ratio} Low 0.9-2.4 [facility] Comment on above: Order Comment: 412.2 Performed By: #### L 100.0100, L500.4050, L300.3900 #### [facility] [address] [place], [address] ALK PHOS 238 U/L High 40-129 [facility] Comment on above: Order Comment: 412.2 Performed By: #### L 100.0100, L500.4050, L300.3900 #### [facility] [address] [place], [address] ALT [Catalytic activity/Vol] 21 U/L Normal <=46 [facility] Comment on above: Order Comment: 412.2 Performed By: #### L 100.0100, L500.4050, L300.3900 #### [facility] [address] [place], [address] AST [Catalytic activity/Vol] 53 U/L High <=37 [facility] Comment on above: Order Comment: 412.2 Performed By: #### L 100.0100, L500.4050, L300.3900 #### [facility] [address] [place], [address] Bilirubin [Mass/Vol] 0.58 mg/dL Normal 0.00-1.30 [facility] Comment on above: Order Comment: 412.2 Performed By: #### L 100.0100, L500.4050, L300.3900 #### [facility] [address] [place], [address] BUN/CRE 6.9 RATIO Low 10-20 [facility] Comment on above: Order Comment: 412.2 Performed By: #### L 100.0100, L500.4050, L300.3900 #### [facility] [address] [place], [address] Calcium [Mass/Vol] 9.6 mg/dL Normal 7.6-11.[address] [facility] Comment on above: Order Comment: 412.2 Performed By: #### L 100.0100, L500.4050, L300.3900 #### [facility] [address] [place], [address] Chloride [Moles/Vol] 102 mmol/L Normal 98-108 [facility] Comment on above: Order Comment: 412.2 Performed By: #### L 100.0100, L500.4050, L300.3900 #### [facility] [address] [place], [address] CO2 [Moles/Vol] 22.8 mmol/L Normal 21.0-32.0 [facility] Comment on above: Order Comment: 412.2 Performed By: #### L 100.0100, L500.4050, L300.3900 #### [facility] [address] [place], [address] Creatinine [Mass/Vol] 5.21 mg/dL High 0.70-1.20 [facility] Comment on above: Order Comment: 412.2 Performed By: #### L 100.0100, L500.4050, L300.3900 #### [facility] [address] [place], [address] GAP 14 Normal 5-15 [facility] Comment on above: Order Comment: 412.2 Performed By: #### L 100.0100, L500.4050, L300.3900 #### [facility] [address] [place], [address] GFR/1.73 sq M.predicted among non-blacks MDRD (S/P/Bld) [Vol rate/Area] 12 mL/min/{1.73_m2} Low >60 [facility] Comment on above: Order Comment: 412.2 Result Comment: mL/m in/1.73m2 CKD-EPI Creatinine Equation (2020) Performed By: #### L 100.0100, L500.4050, L300.3900 #### [facility] [address] [place], [address] Globulin (S) [Mass/Vol] 4.1 g/dL Normal 2.2-4.2 [facility] Comment on above: Order Comment: 412.2 Performed By: #### L 100.0100, L500.4050, L300.3900 #### [facility] [address] [place], [address] Glucose [Mass/Vol] 87 mg/dL Normal 70-[address] [facility] Comment on above: Order Comment: 412.2 Performed By: #### L 100.0100, L500.4050, L300.3900 #### [facility] [address] [place], [address] Potassium [Moles/Vol] 4.9 mmol/L Normal 3.3-5.1 [facility] Comment on above: Order Comment: 412.2 Performed By: #### L 100.0100, L500.4050, L300.3900 #### [facility] [address] [place], [address] Sodium [Moles/Vol] 139 mmol/L Normal 133-[address] [facility] Comment on above: Order Comment: 412.2 Performed By: #### L 100.0100, L500.4050, L300.3900 #### [facility] [address] [place], [address] T PROT 7.2 g/dL Normal 5.9-8.4 [facility] Comment on above: Order Comment: 412.2 Performed By: #### L 100.0100, L500.4050, L300.3900 #### [facility] [address] [place], [address] Urea nitrogen [Mass/Vol] 36 mg/dL High 4-19 [facility] Comment on above: Order Comment: 412.2 Performed By: #### L 100.0100, L500.4050, L300.3900 #### [facility] [address] [place], [address] Prothrombin Time w/INRon INR Coag (PPP) [Relative time] 3.3 {INR} Normal [facility] Comment on above: Order Comment: 412.2 Performed By: #### L 100.0100, L500.4050, L300.3900 #### [facility] [address] [place], [address] PT Coag (PPP) [Time] 34.4 s High 11.7-14.9 [facility] Comment on above: Order Comment: 412.2 Performed By: #### L 100.0100, L500.4050, L300.3900 #### [facility] [address] [place], [address] 36on 03-22-2025 36 Patient discharged to [facility] on 03/21 - please follow International normalized rat io (INR) calculationOrdered By: Kayley Melendrez on 03-22-2025 INR Coag (Bld) [Relative time] 2.9 {INR} [facility] Prothrombin Time w/INRon INR Coag (PPP) [Relative time] 2.9 {INR} Normal [facility] Comment on above: Performed By: #### L 300.3900 #### [facility] [address] [place], [address] PT Coag (PPP) [Time] 30.7 s High 11.7-14.9 [facility] Comment on above: Performed By: #### L 300.3900 #### [facility] [address] [place], [address] Prothrombin timeOrdered By: Kayley Melendrez on 03-22-2025 PT Coag (PPP) [Time] 30.7 s High 11.7-14.9 [facility] 30on 03-21-2025 30 Normal [facility] [id number] 03-21-2025 [id number] Normal [facility] [id number] MAR, Labs & Discharge med [facility] via [employer] per TCC request. Electronically signed by NELSON Rodrigues [id number] APTTon 03-21-2025 aPTT Coag (Bld) [Time] 50.7 s High 20.0-30.5 [facility] Comment on above: Result Comment: ARPAN Kaplan COMMENTS:NOTE: The therapeutic time for Heparin anticoagulation, based on Xa activity inhibition, is an APTT of 46-80 seconds. Performed By: #### L AB320, [id number] ####Weather [employer] Mechanic: DOMENICA JARA ([id number])[facility])[address] [place] [address] CBC (HEMOGRAM)on 03-21-2025 Erythrocyte distribution width (RBC) [Ratio] 19.9 % High 11.5-15.0 [facility] Comment on above: Performed By: #### L AB294 ####Weather Strip Mechanic: DOMENICA JARA ([id number])[facility] ([facility])[address] [place] [address] Hematocrit (Bld) [Volume fraction] 29.2 % Low 40.0-52.0 [facility] Comment on above: Performed By: #### L AB294 ####We[employer] Mechanic: DOMENICA JARA ([id number])[facility])[address] [place] [address] Hemoglobin (Bld) [Mass/Vol] 8.8 g/dL Low 13.0-18.0 [facility] Comment on above: Performed By: #### L AB294 ####Weather [employer] Mechanic: DOMENICA JARA ([id number])[facility] ([facility])[address] [place] [address] MCH (RBC) [Entitic mass] 30.2 pg Normal 26.0-34.0 [facility] Comment on above: Performed By: #### L AB294 ####Weather Strip Mechanic: DOMENICA JARA ([id number])[facility] ([facility])[address] [place] [address] MCHC 30.1 % Low 30.5-36.0 [facility] Comment on above: Performed By: #### L AB294 ####Weather Strip Mechanic: DOMENICA JARA ([id number])[facility] ([facility])[address] [place] [address] MCV (RBC) [Entitic vol] 100.3 fL High 77.0-99.0 [facility] Comment on above: Performed By: #### L AB294 ####Weather Strip Mechanic: DOMENICA JARA ([id number])[facility] ([facility])[address] [place] [address] Platelet mean volume (Bld) [Entitic vol] 8.9 fL Low 9.0-12.7 [facility] Comment on above: Performed By: #### L AB294 ####Weather Strip Mechanic: DOMENICA JARA ([id number])[facility] ([facility])[address] [place] [address] Platelets (Bld) [#/Vol] 271 10*3/uL Normal 140-440 [facility] Comment on above: Performed By: #### L AB294 ####Weather [employer] Mechanic: DOMENICA JARA ([id number])[facility])[address] [place] [address] RBC (Bld) [#/Vol] 2.91 10*6/uL Low 4.40-5.90 [facility] Comment on above: Performed By: #### L AB294 ####Weather [employer] Mechanic: DOMENICA JARA ([id number])[facility] ([facility])[address] [place] [address] WBC (Bld) [#/Vol] 8.0 10*3/uL Normal 3.6-10.7 [facility] Comment on above: Performed By: #### L AB294 ####Weather Strip Mechanic: DOMENICA JARA ([id number])[facility] ([facility])[address] [place] [address] CBC panel Auto (Bld)on 03-21 Erythrocyte distribution width (RBC) [Ratio] 19.9 % High 11.5 - 15.0 % [facility] Hematocrit (Bld) [Volume fraction] 29.2 % Low 40.0 - 52.0 % [facility] Hemoglobin (Bld) [Mass/Vol] 8.8 g/dL Low 13.0 - 18.0 g/dL [facility] Interpretation and review of laboratory results Abnormal [facility] MCH (RBC) [Entitic mass] 30.2 pg 26. 0 - 34.0 pg [facility] MCHC (RBC) [Mass/Vol] 30.1 % Low 30.5 - 36.0 % [facility] MCV (RBC) [Entitic vol] 100.3 fL High 77.0 - 99.0 fL [facility] Platelet mean volume (Bld) [Entitic vol] 8.9 fL Low 9.0 - 12.7 fL [facility] Platelets (Bld) [#/Vol] 271 10*3/uL 140 - 440 10*3/uL [facility] RBC (Bld) [#/Vol] 2.91 10*6/uL Low 4.40 - 5.9 0 10*6/uL [facility] WBC (Bld) [#/Vol] 8 10*3/uL 3.6 - 10.7 10*3/uL [facility] COMPREHENSIVE METABOLIC PANE Victor M 03-21-2025 Albumin [Mass/Vol] 2.0 g/dL Low 3.5-5.0 [facility] Comment on above: Performed By: #### L AB17, [id number] ####Weather Strip Mechanic: DOMENICA JARA ([id number])[facility] ([facility])[address] [place] [address] [place] ALP [Catalytic activity/Vol] 217 U/L High 40-150 [facility] Comment on above: Performed By: #### L AB17, [id number] ####Weather Strip Mechanic: DOMENICA JARA ([id number])[facility])[address] [place] [address] ALT [Catalytic activity/Vol] 13 U/L Normal <40 [facility] Comment on above: Performed By: #### L AB17, [id number] ####Weather Strip Mechanic: DOMENICA JARA ([id number])[facility] ([facility])[address] [place] [address] Anion gap [Moles/Vol] 8 mmol/L Normal 3-13 [facility] Comment on above: Performed By: #### L AB17, [id number] ####Weather Strip Mechanic: DOMENICA JARA ([id number])[facility])[address] [place] [address] AST [Catalytic activity/Vol] 59 U/L High <34 [facility] Comment on above: Performed By: #### L AB17, [id number] ####Weather Strip Mechanic: DOMENICA JARA ([id number])[facility])[address] [place] [address] Bilirubin [Mass/Vol] 0.9 mg/dL Normal <1.2 [facility] Comment on above: Performed By: #### L AB17, [id number] ####Weather Strip Mechanic: DOMENICA JARA ([id number])[facility])[address] [place] [address] Calcium [Mass/Vol] 9.0 mg/dL Normal 8.4-10.2 [facility] Comment on above: Performed By: #### L AB17, [id number] ####Weather Strip Mechanic: DOMENICA JARA ([id number])[facility])[address] [place] [address] Chloride [Moles/Vol] 99 mmol/L Normal 98-107 [facility] Comment on above: Performed By: #### L AB17, [id number] ####Weather Strip Mechanic: DOMENICA JARA ([id number])[facility])[address] [place] [address] CO2 [Moles/Vol] 27 mmol/L Normal 22-29 [facility] Comment on above: Performed By: #### L AB17, [id number] ####Weather Strip Mechanic: DOMENICA JARA ([id number])[facility])[address] [place] [address] Creatinine [Mass/Vol] 3.36 mg/dL High 0.72-1.25 [facility] Comment on above: Performed By: #### L AB17, [id number] ####Weather Strip Mechanic: DOMENICA JARA ([id number])[facility])[address] [place] [address] GLOMERULAR FILTRATION RATE ML/MIN/1.73 SQ M.PREDICTED 20.2 mL/min/1.73m*2 Low >60.0 [facility] Comment on above: Result Comment: Calc ulation based on the Chronic Kidney Disease Epidemiology Collaboration (CKD-EPI) equation refit without adjustment for race Performed By: #### L AB17, [id number] ####Weather Strip Mechanic: DOMENICA JARA ([id number])[facility])[address] [place] [address] Glucose [Mass/Vol] 91 mg/dL Normal 74-100 [facility] Comment on above: Performed By: #### L AB17, [id number] ####Weather Strip Mechanic: DOMENICA JARA ([id number])[facility])[address] [place] [address] [place] Potassium [Moles/Vol] 5.0 mmol/L Normal 3.5-5.1 [facility] Comment on above: Result Comment: [facility] potassium values may be up to 0.5 mmol/L lower than serum values. Performed By: #### L AB17, [id number] ####Weather Strip Mechanic: DOMENICA JARA ([id number])[facility])[address] [place] [address] Protein [Mass/Vol] 7.2 g/dL Normal 6.4-8.3 [facility] Comment on above: Performed By: #### L AB17, [id number] ####Weather Strip Mechanic: DOMENICA JARA ([id number])[address] Sodium [Moles/Vol] 134 mmol/L Low 136-145 [facility] Comment on above: Performed By: #### L AB17, [id number] ####Weather Strip Mechanic: DOMENICA JARA ([id number])[facility])[address] [place] [address] Urea nitrogen [Mass/Vol] 24 mg/dL High 9-23 [facility] Comment on above: Performed By: #### L AB17, [id number] ####Weather Strip Mechanic: DOMENICA JARA ([id number])[facility])[address] [place] [address] Comprehensive metabolic 1998 panelon 03-21-2025 Albumin [Mass/Vol] 2 g/dL Low 3.5 - 5.0 g/dL [facility] ALP [Catalytic activity/Vol] 217 U/L High 40 - 150 U/L [facility] ALT [Catalytic activity/Vol] 13 U/L [facility]/L [facility] Anion gap [Moles/Vol] 8 mmol/L 3 - 13 mmol/L [facility] AST [Catalytic activity/Vol] 59 U/L High NINF - 34 U/L [facility] Bilirubin [Mass/Vol] 0.9 mg/dL NINF - 1.2 mg/dL [facility] Calcium [Mass/Vol] 9 mg/dL 8.4 - 10. 2 mg/dL [facility] Chloride [Moles/Vol] 99 mmol/L 98 - 10 7 mmol/L [facility] CO2 [Moles/Vol] 27 mmol/L 22 - 29 mmol/L [facility] Creatinine [Mass/Vol] 3.36 mg/dL High 0.72 - 1.25 mg/dL [facility] GFR/1.73 sq M.predicted (S/P/Bld) [Vol rate/Area] 20.2 mL/min Low - PINF [facility] Comment on above: Calculation based on the Chronic Kidney Disease Epidemiology Collaboration (CKD-EPI) equation refit without adjustment for race Glucose [Mass/Vol] 91 mg/dL 74 - 100 mg/dL [facility] Interpretation and review of laboratory results Abnormal [facility] Potassium [Moles/Vol] 5 mmol/L 3.5 - 5.1 mmol/L [facility] Comment on above: Plasma potassium macey ues may be up to 0.5 mmol/L lower than serum values. Protein [Mass/Vol] 7.2 g/dL 6.4 - 8.3 g/dL [facility] Sodium [Moles/Vol] 134 mmol/L Low 136 - 145 mmol/L [facility] Urea nitrogen [Mass/Vol] 24 mg/dL High 9 - 23 mg/d L [facility] Laboratory - Chemistry and C hemistry - challengeon 03-21-2025 Glucose [Mass/Vol] 88 mg/dL 70 - 100 mg/dL [facility] Magnesium [Mass/Vol] 1.8 mg/dL 1.6 - 2 .6 mg/dL [facility] Laboratory - Coagulationon 0 03-21-2025 PT Coag (Bld) [Time] 29 s High 9.0 - 12.0 s [facility] MAGNESIUMon 03-21-2025 Magnesium [Mass/Vol] 1.8 mg/dL Normal 1.6-2.6 [facility] Comment on above: Result Comment: ARPAN Kaplan COMMENTS:Higher values can be expected in females during menses. Performed By: #### L AB17, [id number] ####Weather Strip Mechanic: DOMENICA JARA ([id number])[facility] ([facility])[address] [place] [address] Magnesium [Mass/Vol]on 03-21 Interpretation and review of laboratory results Normal [facility] Higher values can be expected in females during menses. [facility] No Panel Informationon 03-21 Interpretation and review of laboratory results Normal [facility] Performed by: [facility], [address] [place] [address] CLIA ID: [id number] [facility] Interpretation and review of laboratory results Abnormal [facility] Nursing Noteon 03-21-2025 Nursing Note Educated pt on importance of prescribed medications. Pt still refused. Normal [facility] PROTHROMBIN TIMEon INR Coag (PPP) [Relative time] 2.9 {INR} High 0.9-1.1 [facility] Comment on above: Result Comment: Vaughn mmended [...] Myocardial Infarction Performed By: #### Tameka AB320, [id number] ####Weather Strip Mechanic: DOMENICA JARA ([phone])[facility])[address] [place] [address] PT Coag (PPP) [Time] 29.0 s High 9.0-12.0 [facility] Comment on above: Performed By: #### Tameka AB320, [id number] ####Weather Strip Mechanic: DOMENICA JARA ([phone])[facility] ([facility])[address] [place] [address] PT Coag (Bld) [Time]on 03-21 INR Coag (PPP) [Relative time] 2.9 {INR} High 0.9 - 1.1 [facility] Comment on above: Recommended Anticoag ulant Therapy: [...] Infarction Progress Noteon 03-21-2025 Progress Note Normal [facility] Progress Note Patient quit smoking in September. Accepting of handout with contact information for additional support to remain quit if neccesary. Normal [facility] Progress Note Normal [facility] Progress Note Normal [facility] Progress Note Normal [facility] aPTT Coag (Bld) [Time]on aPTT Coag (PPP) [Time] 50.7 s High 20.0 - 30.5 s [facility] NOTE: The therapeutic time for Heparin anticoagulation, based on Xa activity inhibition, is an APTT of 46-80 seconds. [facility] 30on 03-20-2025 30 Normal [facility] [id number] 03-20-2025 [id number] Normal [facility] 36on 03-20-2025 36 Patient was re-admitted on 03/13. Inpatient consult team is following his care. Normal [facility] APTTon 03-20-2025 aPTT Coag (Bld) [Time] 68.9 s High 20.0-30.5 [facility] Comment on above: Result Comment: ARPAN Kaplan COMMENTS:NOTE: The therapeutic time for Heparin anticoagulation, based on Xa activity inhibition, is an APTT of 46-80 seconds. Performed By: #### L AB325 ####Weather Strip Mechanic: DOMENICA JARA ([phone])[address] aPTT Coag (Bld) [Time] 61.5 s High 20.0-30.5 [facility] Comment on above: Result Comment: ARPAN Kaplan COMMENTS:NOTE: The therapeutic time for Heparin anticoagulation, based on Xa activity inhibition, is an APTT of 46-80 seconds. Performed By: #### L AB325 ####Weather Strip Mechanic: DOMENICA JARA ([id number])[facility] ([facility])[address] [place] [address] aPTT Coag (Bld) [Time] 44.1 s High 20.0-30.5 [facility] Comment on above: Result Comment: ARPAN Kaplan COMMENTS:NOTE: The therapeutic time for Heparin anticoagulation, based on Xa activity inhibition, is an APTT of 46-80 seconds. Performed By: #### L AB320, [id number] ####Weather Strip Mechanic: DOMENICA JARA ([id number])[facility] ([facility])[address] [place] [address] CBC (HEMOGRAM)on 03-20-2025 Erythrocyte distribution width (RBC) [Ratio] 20.2 % High 11.5-15.0 [facility] Comment on above: Performed By: #### L AB294 ####Weather Strip Mechanic: DOMENICA JARA ([phone])[facility])[address] [place] [address] Hematocrit (Bld) [Volume fraction] 30.3 % Low 40.0-52.0 [facility] Comment on above: Performed By: #### L AB294 ####Weather Strip Mechanic: DOMENICA JARA ([phone])[facility])[address] [place] [address] Hemoglobin (Bld) [Mass/Vol] 9.2 g/dL Low 13.0-18.0 [facility] Comment on above: Performed By: #### L AB294 ####Weather Strip Mechanic: DOMENICA JARA ([id number])[facility] ([facility])[address] [place] [address] MCH (RBC) [Entitic mass] 30.7 pg Normal 26.0-34.0 [facility] Comment on above: Performed By: #### L AB294 ####Weather Strip Mechanic: DOMENICA JARA ([id number])[facility])[address] [place] [address] MCHC 30.4 % Low 30.5-36.0 [facility] Comment on above: Performed By: #### L AB294 ####Weather Strip Mechanic: DOMENICA JARA ([phone])[facility] ([facility])[address] [place] [address] MCV (RBC) [Entitic vol] 101.0 fL High 77.0-99.0 [facility] Comment on above: Performed By: #### L AB294 ####Weather Strip Mechanic: DOMENICA JARA ([phone])[facility])[address] [place] [address] Platelet mean volume (Bld) [Entitic vol] 9.2 fL Normal 9.0-12.7 [facility] Comment on above: Performed By: #### L AB294 ####Weather Strip Mechanic: DOMENICA JARA ([id number])[facility])[address] [place] [address] Platelets (Bld) [#/Vol] 308 10*3/uL Normal 140-440 [facility] Comment on above: Performed By: #### L AB294 ####Weather Strip Mechanic: DOMENICA JARA ([id number])[facility] ([facility])[address] [place] [address] RBC (Bld) [#/Vol] 3.00 10*6/uL Low 4.40-5.90 [facility] Comment on above: Performed By: #### L AB294 ####Weather Strip Mechanic: DOMENICA JARA ([id number])[facility])[address] [place] [address] WBC (Bld) [#/Vol] 8.1 10*3/uL Normal 3.6-10.7 [facility] Comment on above: Performed By: #### L AB294 ####Weather Strip Mechanic: DOMENICA JARA ([id number])[facility])[address] [place] [address] CBC panel Auto (Bld)Ordered By: Anu Graham on 03-20-2025 Erythrocyte distribution width (RBC) [Ratio] 20.2 % High 11.5 - 15.0 % [facility] Hematocrit (Bld) [Volume fraction] 30.3 % Low 40.0 - 52.0 % [facility] Hemoglobin (Bld) [Mass/Vol] 9.2 g/dL Low 13.0 - 18.0 g/dL [facility] Interpretation and review of laboratory results Abnormal [facility] MCH (RBC) [Entitic mass] 30.7 pg 26. 0 - 34.0 pg [facility] MCHC (RBC) [Mass/Vol] 30.4 % Low 30.5 - 36.0 % [facility] MCV (RBC) [Entitic vol] 101 fL High 77.0 - 99.0 fL [facility] Platelet mean volume (Bld) [Entitic vol] 9.2 fL 9.0 - 12.7 fL [facility] Platelets (Bld) [#/Vol] 308 10*3/uL 140 - 440 10*3/uL [facility] RBC (Bld) [#/Vol] 3 10*6/uL Low 4.40 - 5.9 0 10*6/uL [facility] WBC (Bld) [#/Vol] 8.1 10*3/uL 3.6 - 10.7 10*3/uL [facility] COMPREHENSIVE METABOLIC PANE Victor M 03-20-2025 Albumin [Mass/Vol] 1.9 g/dL Low 3.5-5.0 [facility] Comment on above: Performed By: #### L AB103, LAB17 ####Weather Strip Mechanic: DOMENICA JARA ([phone])[facility] ([facility])[address] [place] [address] ALP [Catalytic activity/Vol] 194 U/L High 40-150 [facility] Comment on above: Performed By: #### L AB103, LAB17 ####Weather Strip Mechanic: DOMENICA JARA ([phone])[facility] ([facility])[address] [place] [address] ALT [Catalytic activity/Vol] 13 U/L Normal <40 [facility] Comment on above: Performed By: #### L AB103, LAB17 ####Weather Strip Mechanic: DOMENICA JARA ([id number])[facility] ([facility])[address] [place] [address] Anion gap [Moles/Vol] 10 mmol/L Normal 3-13 [facility] Comment on above: Performed By: #### L AB103, LAB17 ####Weather Strip Mechanic: DOMENICA JARA ([id number])[facility] ([facility])[address] [place] [address] AST [Catalytic activity/Vol] 46 U/L High <34 [facility] Comment on above: Performed By: #### L AB103, LAB17 ####Weather Strip Mechanic: DOMENICA JARA ([id number])[facility] ([facility])[address] [place] [address] Bilirubin [Mass/Vol] 0.8 mg/dL Normal <1.2 [facility] Comment on above: Performed By: #### Tameka KWONG, LAB17 ####Weather Strip Mechanic: DOMENICA JARA ([id number])[facility])[address] [place] [address] Calcium [Mass/Vol] 9.1 mg/dL Normal 8.4-10.2 [facility] Comment on above: Performed By: #### Tameka KWONG, LAB17 ####Weather Strip Mechanic: DOMENICA AJRA ([id number])[facility] ([facility])[address] [place] [address] Chloride [Moles/Vol] 102 mmol/L Normal 98-107 [facility] Comment on above: Performed By: #### Tameka KWONG, LAB17 ####Weather Strip Mechanic: DOMENICA JARA ([id number])[facility] ([facility])[address] [place] [address] CO2 [Moles/Vol] 24 mmol/L Normal 22-29 [facility] Comment on above: Performed By: #### Tameka KWONG, LAB17 ####Weather Strip Mechanic: DOMENICA JARA ([id number])[facility] ([facility])[address] [place] [address] Creatinine [Mass/Vol] 4.28 mg/dL High 0.72-1.25 [facility] Comment on above: Performed By: #### Tameka KWONG, LAB17 ####Weather Strip Mechanic: DOMENICA JARA ([phone])[facility])[address] [place] [address] [place] GLOMERULAR FILTRATION RATE ML/MIN/1.73 SQ M.PREDICTED 15.1 mL/min/1.73m*2 Low >60.0 [facility] Comment on above: Result Comment: Calc ulation based on the Chronic Kidney Disease Epidemiology Collaboration (CKD-EPI) equation refit without adjustment for race Performed By: #### L AB103, LAB17 ####Weather Strip Mechanic: DOMENICA JARA ([phone])[facility] ([facility])[address] [place] [address] Glucose [Mass/Vol] 91 mg/dL Normal 74-100 [facility] Comment on above: Performed By: #### L AB103, LAB17 ####Weather Strip Mechanic: DOMENICA JARA ([id number])[facility] ([facility])[address] [place] [address] Potassium [Moles/Vol] 5.3 mmol/L High 3.5-5.1 [facility] Comment on above: Result Comment: [facility] potassium values may be up to 0.5 mmol/L lower than serum values. Performed By: #### L AB103, LAB17 ####Weather Strip Mechanic: DOMENICA JARA ([id number])[facility] ([facility])[address] [place] [address] Protein [Mass/Vol] 7.3 g/dL Normal 6.4-8.3 [facility] Comment on above: Performed By: #### L AB103, LAB17 ####Weather Strip Mechanic: DOMENICA JARA ([id number])[facility] ([facility])[address] [place] [address] Sodium [Moles/Vol] 136 mmol/L Normal 136-145 [facility] Comment on above: Performed By: #### L AB103, LAB17 ####Weather Strip Mechanic: DOMENICA JARA ([phone])[facility] ([facility])[address] [place] [address] Urea nitrogen [Mass/Vol] 32 mg/dL High 9-23 [facility] Comment on above: Performed By: #### L AB103, LAB17 ####Weather Strip Mechanic: DOMENICA JARA ([id number])[facility] ([facility])[address] [place] [address] Comprehensive metabolic 1998 panelon 03-20-2025 Albumin [Mass/Vol] 1.9 g/dL Low 3.5 - 5.0 g/dL [facility] ALP [Catalytic activity/Vol] 194 U/L High 40 - 150 U/L [facility] ALT [Catalytic activity/Vol] 13 U/L NINF - 40 U/L [facility] Anion gap [Moles/Vol] 10 mmol/L 3 - 13 mmol/L [facility] AST [Catalytic activity/Vol] 46 U/L High NINF - 34 U/L [facility] Bilirubin [Mass/Vol] 0.8 mg/dL NINF - 1.2 mg/dL [facility] Calcium [Mass/Vol] 9.1 mg/dL 8.4 - 10. 2 mg/dL [facility] Chloride [Moles/Vol] 102 mmol/L 98 - 10 7 mmol/L [facility] CO2 [Moles/Vol] 24 mmol/L 22 - 29 mmol/L [facility] Creatinine [Mass/Vol] 4.28 mg/dL High 0.72 - 1.25 mg/dL [facility] GFR/1.73 sq M.predicted (S/P/Bld) [Vol rate/Area] 15.1 mL/min Low - PINF [facility] Comment on above: Calculation based on the Chronic Kidney Disease Epidemiology Collaboration (CKD-EPI) equation refit without adjustment for race Glucose [Mass/Vol] 91 mg/dL 74 - 100 mg/dL [facility] Interpretation and review of laboratory results Abnormal [facility] Potassium [Moles/Vol] 5.3 mmol/L High 3.5 - 5.1 mmol/L [facility] Comment on above: Plasma potassium macey ues may be up to 0.5 mmol/L lower than serum values. Protein [Mass/Vol] 7.3 g/dL 6.4 - 8.3 g/dL [facility] Sodium [Moles/Vol] 136 mmol/L 136 - 145 mmol/L [facility] Urea nitrogen [Mass/Vol] 32 mg/dL High 9 - 23 mg/d L [facility] HBV surface Ab IA Qnon 03-20 Interpretation: <8.0 Non-Reactive 8.0-11.9 Equivocal >= 12.0 Ab Detected Note: If an equivocal result is interpreted, an antibody status is unable to be determined. Collect new specimen if clinically indicated. [facility] HBV surface Ag IA Qlon 03-20 Interpretation and review of laboratory results Normal [facility] HEPATITIS B SURFACE ANTIBODY on 03-20-2025 HEPATITIS B VIRUS SURFACE AB <8.0 Normal [facility] Comment on above: Result Comment: ARPAN Kaplan COMMENTS:Interpretation:<8.0 Non-Reactive8.0-11.9 Equivocal>= 12.0 Ab DetectedNote: If an equivocal result is interpreted, an antibody status is unable to be determined. Collect new specimen if clinically indicated. Performed By: #### L AB472, [id number] ####Weather Strip Mechanic: DOMENICA JARA ([phone])[facility] ([facility])[address] [place] [address] HEPATITIS B SURFACE ANTIGENo n 03-20-2025 HEPATITIS B VIRUS SURFACE AG Not detected Normal Not Detected [facility] Comment on above: Performed By: #### L AB472, [id number] ####Weather Strip Mechanic: DOMENICA JARA ([id number])[facility] ([facility])[address] [place] [address] Laboratory - Chemistry and C hemistry - challengeon 03-20-2025 Magnesium [Mass/Vol] 2 mg/dL 1.6 - 2 .6 mg/dL [facility] Laboratory - Coagulationon 0 03-20-2025 PT Coag (Bld) [Time] 19.1 s High 9.0 - 12.0 s [facility] Laboratory - Microbiology an d Antimicrobial susceptibilityon 03-20-2025 HBV surface Ag IA Ql Not detected Not Detected [facility] HBV surface Ab IA Qn mIU/mL [facility] MAGNESIUMon 03-20-2025 Magnesium [Mass/Vol] 2.0 mg/dL Normal 1.6-2.6 [facility] Comment on above: Result Comment: ARPAN R COMMENTS:Higher values can be expected in females during menses. Performed By: #### L AB103, LAB17 ####Weather Strip Mechanic: DOMENICA JARA ([id number])[facility] ([facility])[address] [place] [address] Magnesium [Mass/Vol]on 03-20 Interpretation and review of laboratory results Normal [facility] Higher values can be expected in females during menses. [facility] No Panel Informationon 03-20 [facility] Interpretation and review of laboratory results Abnormal [facility] Nursing Noteon 03-20-2025 Nursing Note Normal [facility] PROTHROMBIN TIMEon INR Coag (PPP) [Relative time] 1.9 {INR} High 0.9-1.1 [facility] Comment on above: Result Comment: Vaughn mmended [...] Myocardial Infarction Performed By: #### Tameka AB320, [id number] ####Weather Strip Mechanic: DOMENICA JARA ([phone])[address] PT Coag (PPP) [Time] 19.1 s High 9.0-12.0 [facility] Comment on above: Performed By: #### Tameka AB320, [id number] ####Weather Strip Mechanic: DOMENICA JARA ([id number])[facility] [employer] PT Coag (Bld) [Time]on 03-20 INR Coag (PPP) [Relative time] 1.9 {INR} High 0.9 - 1.1 [facility] Comment on above: Recommended Anticoag ulant Therapy: [...] Infarction Progress Noteon 03-20-[address] [facility] Progress Note Normal [facility] aPTT Coag (Bld) [Time]on aPTT Coag (PPP) [Time] 68.9 s High 20.0 - 30.5 s [facility] Interpretation and review of laboratory results Abnormal [facility] NOTE: The therapeutic time for Heparin anticoagulation, based on Xa activity inhibition, is an APTT of 46-80 seconds. [facility] aPTT Coag (PPP) [Time] 61.5 s High 20.0 - 30.5 s [facility] Interpretation and review of laboratory results Abnormal [facility] NOTE: The therapeutic time for Heparin anticoagulation, based on Xa activity inhibition, is an APTT of 46-80 seconds. [facility] aPTT Coag (PPP) [Time] 44.1 s High 20.0 - 30.5 s [facility] NOTE: The therapeutic time for Heparin anticoagulation, based on Xa activity inhibition, is an APTT of 46-80 seconds. [facility] 30on 03-19-2025 30 Normal [facility] 30 Normal [facility] [id number] 03-19-2025 [id number] Normal [facility] APTTon 03-19-2025 aPTT Coag (Bld) [Time] 47.3 s High 20.0-30.5 [facility] Comment on above: Result Comment: ARPAN Kaplan COMMENTS:NOTE: The therapeutic time for Heparin anticoagulation, based on Xa activity inhibition, is an APTT of 46-80 seconds. Performed By: #### L AB325 ####Weather Strip Mechanic: DOMENICA JARA ([phone])[address] aPTT Coag (Bld) [Time] 46.4 s High 20.0-30.5 [facility] Comment on above: Result Comment: ARPAN Kaplan COMMENTS:NOTE: The therapeutic time for Heparin anticoagulation, based on Xa activity inhibition, is an APTT of 46-80 seconds. Performed By: #### L AB320, [id number] ####Weather Strip Mechanic: DOMENICA JARA ([id number])[address] CBC (HEMOGRAM)on 03-19-2025 Erythrocyte distribution width (RBC) [Ratio] 20.8 % High 11.5-15.0 [facility] Comment on above: Performed By: #### L AB294 ####Weather Strip Mechanic: DOMENICA JARA ([id number])[facility] ([facility])[address] [place] [address] Hematocrit (Bld) [Volume fraction] 30.4 % Low 40.0-52.0 [facility] Comment on above: Performed By: #### L AB294 ####Weather Strip Mechanic: DOMENICA JARA ([phone])[facility])[address] [place] [address] Hemoglobin (Bld) [Mass/Vol] 8.9 g/dL Low 13.0-18.0 [facility] Comment on above: Performed By: #### L AB294 ####Weather Strip Mechanic: DOMENICA JARA ([phone])[facility])[address] [place] [address] MCH (RBC) [Entitic mass] 29.9 pg Normal 26.0-34.0 [facility] Comment on above: Performed By: #### L AB294 ####Weather Strip Mechanic: DOMENICA JARA ([id number])[facility] ([facility])[address] [place] [address] MCHC 29.3 % Low 30.5-36.0 [facility] Comment on above: Performed By: #### L AB294 ####Weather Strip Mechanic: DOMENICA JARA ([id number])[facility])[address] [place] [address] MCV (RBC) [Entitic vol] 102.0 fL High 77.0-99.0 [facility] Comment on above: Performed By: #### L AB294 ####Weather Strip Mechanic: DOMENICA JARA ([phone])[facility])[address] [place] [address] Platelet mean volume (Bld) [Entitic vol] 9.3 fL Normal 9.0-12.7 [facility] Comment on above: Performed By: #### L AB294 ####Weather Strip Mechanic: DOMENICA JARA ([id number])[facility])[address] [place] [address] Platelets (Bld) [#/Vol] 320 10*3/uL Normal 140-440 [facility] Comment on above: Performed By: #### L AB294 ####Weather Strip Mechanic: DOMENICA JARA ([id number])[facility])[address] [place] [address] RBC (Bld) [#/Vol] 2.98 10*6/uL Low 4.40-5.90 [facility] Comment on above: Performed By: #### L AB294 ####Weather Strip Mechanic: DOMENICA JARA ([phone])[facility])[address] [place] [address] WBC (Bld) [#/Vol] 7.8 10*3/uL Normal 3.6-10.7 [facility] Comment on above: Performed By: #### L AB294 ####Weather Strip Mechanic: DOMENICA JARA ([id number])[facility] ([facility])[address] [place] [address] CBC panel Auto (Bld)Ordered By: Liseth Granado on 03-19-2025 Erythrocyte distribution width (RBC) [Ratio] 20.8 % High 11.5 - 15.0 % [facility] Hematocrit (Bld) [Volume fraction] 30.4 % Low 40.0 - 52.0 % [facility] Hemoglobin (Bld) [Mass/Vol] 8.9 g/dL Low 13.0 - 18.0 g/dL [facility] Interpretation and review of laboratory results Abnormal [facility] MCH (RBC) [Entitic mass] 29.9 pg 26. 0 - 34.0 pg [facility] MCHC (RBC) [Mass/Vol] 29.3 % Low 30.5 - 36.0 % [facility] MCV (RBC) [Entitic vol] 102 fL High 77.0 - 99.0 fL [facility] Platelet mean volume (Bld) [Entitic vol] 9.3 fL 9.0 - 12.7 fL [facility] Platelets (Bld) [#/Vol] 320 10*3/uL 140 - 440 10*3/uL [facility] [facility] RBC (Bld) [#/Vol] 2.98 10*6/uL Low 4.40 - 5.9 0 10*6/uL [facility] WBC (Bld) [#/Vol] 7.8 10*3/uL 3.6 - 10.7 10*3/uL [facility] COMPREHENSIVE METABOLIC PANE Victor M 03-19-2025 Albumin [Mass/Vol] 2.0 g/dL Low 3.5-5.0 [facility] Comment on above: Performed By: #### L AB17, [id number] ####Weather Strip Mechanic: DOMENICA JARA ([phone])[facility] ([facility])[address] [place] [address] ALP [Catalytic activity/Vol] 221 U/L High 40-150 [facility] Comment on above: Performed By: #### L AB17, [id number] ####Weather Strip Mechanic: DOMENICA JARA ([phone])[facility] ([facility])[address] [place] [address] ALT [Catalytic activity/Vol] 14 U/L Normal <40 [facility] Comment on above: Performed By: #### L AB17, [id number] ####Weather Strip Mechanic: DOMENICA JARA ([phone])[facility] ([facility])[address] [place] [address] Anion gap [Moles/Vol] 8 mmol/L Normal 3-13 [facility] Comment on above: Performed By: #### L AB17, [id number] ####Weather Strip Mechanic: DOMENICA JARA ([phone])[facility])[address] [place] [address] AST [Catalytic activity/Vol] 52 U/L High <34 [facility] Comment on above: Performed By: #### L AB17, [id number] ####Weather Strip Mechanic: DOMENICA JARA ([phone])[facility])[address] [place] [address] Bilirubin [Mass/Vol] 0.9 mg/dL Normal <1.2 [facility] Comment on above: Performed By: #### L AB17, [id number] ####Weather Strip Mechanic: DOMENICA JARA ([phone])[facility] [place] [address] Calcium [Mass/Vol] 9.0 mg/dL Normal 8.4-10.2 [facility] Comment on above: Performed By: #### L AB17, [id number] ####Weather Strip Mechanic: DOMENICA JARA ([id number])[facility] [place] [address] [place] Chloride [Moles/Vol] 102 mmol/L Normal 98-107 [facility] Comment on above: Performed By: #### L AB17, [id number] ####Weather Strip Mechanic: DOMENICA JARA ([phone])[facility] ([facility])[address] [place] [address] CO2 [Moles/Vol] 27 mmol/L Normal 22-29 [facility] Comment on above: Performed By: #### L AB17, [id number] ####Weather Strip Mechanic: DOMENICA JARA ([phone])[facility] ([facility])[address] [place] [address] Creatinine [Mass/Vol] 3.67 mg/dL High 0.72-1.25 [facility] Comment on above: Performed By: #### L AB17, [id number] ####Weather Strip Mechanic: DOMENICA JARA ([phone])[facility] ([facility])[address] [place] [address] [place] GLOMERULAR FILTRATION RATE ML/MIN/1.73 SQ M.PREDICTED 18.2 mL/min/1.73m*2 Low >60.0 [facility] Comment on above: Result Comment: Calc ulation based on the Chronic Kidney Disease Epidemiology Collaboration (CKD-EPI) equation refit without adjustment for race Performed By: #### L AB17, [id number] ####Weather Strip Mechanic: DOMENICA JARA ([phone])[facility] ([facility])[address] [place] [address] [place] Glucose [Mass/Vol] 85 mg/dL Normal 74-100 [facility] Comment on above: Performed By: #### L AB17, [id number] ####Weather Strip Mechanic: DOMENICA JARA ([id number])[facility] ([facility])[address] [place] [address] Potassium [Moles/Vol] 4.0 mmol/L Normal 3.5-5.1 [facility] Comment on above: Result Comment: [facility] potassium values may be up to 0.5 mmol/L lower than serum values. Performed By: #### L AB17, [id number] ####Weather Strip Mechanic: DOMENICA JARA ([phone])[facility] ([facility])[address] [place] [address] Protein [Mass/Vol] 7.4 g/dL Normal 6.4-8.3 [facility] Comment on above: Performed By: #### L AB17, [id number] ####Weather Strip Mechanic: DOMENICA JARA ([phone])[facility])[address] [place] [address] Sodium [Moles/Vol] 137 mmol/L Normal 136-145 [facility] Comment on above: Performed By: #### L AB17, [id number] ####Weather Strip Mechanic: DOMENICA JARA ([phone])[facility] ([facility])[address] [place] [address] Urea nitrogen [Mass/Vol] 24 mg/dL High 06-19 [facility] Comment on above: Performed By: #### L AB17, [id number] ####Weather Strip Mechanic: DOMENICA JARA ([phone])[facility])[address] [place] [address] Comprehensive metabolic 1998 panelOrdered By: Rikki Caballero on 03-19-2025 Albumin [Mass/Vol] 2 g/dL Low 3.5 - 5.0 g/dL [facility] ALP [Catalytic activity/Vol] 221 U/L High 40 - 150 U/L [facility] ALT [Catalytic activity/Vol] 14 U/L NINF - 40 U/L [facility] Anion gap [Moles/Vol] 8 mmol/L 3 - 13 mmol/L [facility] AST [Catalytic activity/Vol] 52 U/L High NINF - 34 U/L [facility] Bilirubin [Mass/Vol] 0.9 mg/dL NINF - 1.2 mg/dL [facility] Calcium [Mass/Vol] 9 mg/dL 8.4 - 10. 2 mg/dL [facility] Chloride [Moles/Vol] 102 mmol/L 98 - 10 7 mmol/L [facility] CO2 [Moles/Vol] 27 mmol/L 22 - 29 mmol/L [facility] Creatinine [Mass/Vol] 3.67 mg/dL High 0.72 - 1.25 mg/dL [facility] GFR/1.73 sq M.predicted (S/P/Bld) [Vol rate/Area] 18.2 mL/min Low - PINF [facility] Comment on above: Calculation based on the Chronic Kidney Disease Epidemiology Collaboration (CKD-EPI) equation refit without adjustment for race Glucose [Mass/Vol] 85 mg/dL 74 - 100 mg/dL [facility] Interpretation and review of laboratory results Abnormal [facility] Potassium [Moles/Vol] 4 mmol/L 3.5 - 5.1 mmol/L [facility] Comment on above: Plasma potassium macey ues may be up to 0.5 mmol/L lower than serum values. Protein [Mass/Vol] 7.4 g/dL 6.4 - 8.3 g/dL [facility] Sodium [Moles/Vol] 137 mmol/L 136 - 145 mmol/L [facility] Urea nitrogen [Mass/Vol] 24 mg/dL High 9 - 23 mg/d L [facility] Laboratory - Chemistry and C hemistry - challengeon 03-19-2025 Magnesium [Mass/Vol] 1.9 mg/dL 1.6 - 2 .6 mg/dL [facility] Laboratory - Coagulationon 0 03-19-2025 PT Coag (Bld) [Time] 17 s High 9.0 - 12.0 s [facility] MAGNESIUMon 03-19-2025 Magnesium [Mass/Vol] 1.9 mg/dL Normal 1.6-2.6 [facility] Comment on above: Result Comment: ARPAN Kaplan COMMENTS:Higher values can be expected in females during menses. Performed By: #### L AB17, [id number] ####Weather Strip Mechanic: DOMENICA JARA ([id number])[facility] ([id number] Magnesium [Mass/Vol]on 03-19 Interpretation and review of laboratory results Normal [facility] Higher values can be expected in females during menses. [facility] No Panel Informationon 03-19 Interpretation and review of laboratory results Abnormal [facility] Nursing Noteon 03-19-2025 Nursing Note Wound vac suction failing-pt requesting wound vac removed for now. Black foam dressing removed and wound packed with saline-soaked gauze covered with DSD Normal [facility] Nursing Note Pt adamantly refusing telemetry at this time, ripped off monitor and threw to the floor Normal [facility] PROTHROMBIN TIMEon INR Coag (PPP) [Relative time] 1.6 {INR} High 0.9-1.1 [facility] Comment on above: Performed By: #### L AB320, [id number] ####Weather Strip Mechanic: DOMENICA JARA ([phone])[address] PT Coag (PPP) [Time] 17.0 s High 9.0-12.0 [facility] Comment on above: Performed By: #### L AB320, [id number] ####Weather Strip Mechanic: DOMENICA JARA ([id number])[address] PT Coag (Bld) [Time]on 03-19 INR Coag (PPP) [Relative time] 1.6 {INR} High 0.9 - 1.1 [facility] Progress Noteon 03-19-2025 Progress Note Normal [facility] Progress Note [facility] Progress Note Normal [facility] Progress Note Normal [facility] aPTT Coag (Bld) [Time]on aPTT Coag (PPP) [Time] 47.3 s High 20.0 - 30.5 s [facility] Interpretation and review of laboratory results Abnormal [facility] NOTE: The therapeutic time for Heparin anticoagulation, based on Xa activity inhibition, is an APTT of 46-80 seconds. [facility] aPTT Coag (PPP) [Time] 46.4 s High 20.0 - 30.5 s [facility] NOTE: The therapeutic time for Heparin anticoagulation, based on Xa activity inhibition, is an APTT of 46-80 seconds. [facility] APTTon 03-18-2025 aPTT Coag (Bld) [Time] 51.8 s High 20.0-30.5 [facility] Comment on above: Result Comment: ARPAN Kaplan COMMENTS:NOTE: The therapeutic time for Heparin anticoagulation, based on Xa activity inhibition, is an APTT of 46-80 seconds. Performed By: #### L AB325 ####Weather Strip Mechanic: DOMENICA JARA ([phone])[address] aPTT Coag (Bld) [Time] 47.6 s High 20.0-30.5 [facility] Comment on above: Result Comment: ARPAN Kaplan COMMENTS:NOTE: The therapeutic time for Heparin anticoagulation, based on Xa activity inhibition, is an APTT of 46-80 seconds. Performed By: #### L AB325 ####Weather Strip Mechanic: DOMENICA JARA ([phone])[facility] ([facility])[address] [place] [address] aPTT Coag (Bld) [Time] 48.8 s High 20.0-30.5 [facility] Comment on above: Result Comment: ARPAN Kaplan COMMENTS:NOTE: The therapeutic time for Heparin anticoagulation, based on Xa activity inhibition, is an APTT of 46-80 seconds. Performed By: #### L AB325, [id number] ####Weather Strip Mechanic: DOMENICA JARA ([id number])[facility] ([facility])[address] [place] [address] CBC (HEMOGRAM)on 03-18-2025 Erythrocyte distribution width (RBC) [Ratio] 20.6 % High 11.5-15.0 [facility] Comment on above: Performed By: #### L AB294 ####Weather Strip Mechanic: DOMENICA [id number])[facility] ([facility])[address] [place] [address] Hematocrit (Bld) [Volume fraction] 30.4 % Low 40.0-52.0 [facility] Comment on above: Performed By: #### L AB294 ####Weather Strip Mechanic: DOMENICA JARA ([id number])[facility])[address] [place] [address] Hemoglobin (Bld) [Mass/Vol] 9.1 g/dL Low 13.0-18.0 [facility] Comment on above: Performed By: #### L AB294 ####Weather Strip Mechanic: DOMENICA JARA ([phone])[facility] ([facility])[address] [place] [address] MCH (RBC) [Entitic mass] 30.0 pg Normal 26.0-34.0 [facility] Comment on above: Performed By: #### L AB294 ####Weather Strip Mechanic: DOMENICA JARA ([id number])[facility])[address] [place] [address] MCHC 29.9 % Low 30.5-36.0 [facility] Comment on above: Performed By: #### L AB294 ####Weather Strip Mechanic: DOMENICA JARA ([phone])[facility])[address] [place] [address] MCV (RBC) [Entitic vol] 100.3 fL High 77.0-99.0 [facility] Comment on above: Performed By: #### L AB294 ####Weather Strip Mechanic: DOMENICA JARA ([id number])[facility])[address] [place] [address] Platelet mean volume (Bld) [Entitic vol] 9.4 fL Normal 9.0-12.7 [facility] Comment on above: Performed By: #### L AB294 ####Weather Strip Mechanic: DOMENICA JARA ([id number])[facility])[address] [place] [address] Platelets (Bld) [#/Vol] 333 10*3/uL Normal 140-440 [facility] Comment on above: Performed By: #### L AB294 ####Weather Strip Mechanic: DOMENICA JARA ([phone])[facility])[address] [place] [address] RBC (Bld) [#/Vol] 3.03 10*6/uL Low 4.40-5.90 [facility] Comment on above: Performed By: #### L AB294 ####Weather Strip Mechanic: DOMENICA JARA ([id number])[facility])[address] [place] [address] WBC (Bld) [#/Vol] 7.6 10*3/uL Normal 3.6-10.7 [facility] Comment on above: Performed By: #### L AB294 ####Weather Strip Mechanic: DOMENICA JARA ([phone])[address] CBC panel Auto (Bld)Ordered By: Haley Vitale on 03-18-2025 Erythrocyte distribution width (RBC) [Ratio] 20.6 % High 11.5 - 15.0 % [facility] Hematocrit (Bld) [Volume fraction] 30.4 % Low 40.0 - 52.0 % [facility] Hemoglobin (Bld) [Mass/Vol] 9.1 g/dL Low 13.0 - 18.0 g/dL [facility] Interpretation and review of laboratory results Abnormal [facility] MCH (RBC) [Entitic mass] 30 pg 26. 0 - 34.0 pg [facility] MCHC (RBC) [Mass/Vol] 29.9 % Low 30.5 - 36.0 % [facility] MCV (RBC) [Entitic vol] 100.3 fL High 77.0 - 99.0 fL [facility] Platelet mean volume (Bld) [Entitic vol] 9.4 fL 9.0 - 12.7 fL [facility] Platelets (Bld) [#/Vol] 333 10*3/uL 140 - 440 10*3/uL [facility] RBC (Bld) [#/Vol] 3.03 10*6/uL Low 4.40 - 5.9 0 10*6/uL [facility] WBC (Bld) [#/Vol] 7.6 10*3/uL 3.6 - 10.7 10*3/uL [facility] COMPREHENSIVE METABOLIC PANE Victor M 03-18-2025 Albumin [Mass/Vol] 2.0 g/dL Low 3.5-5.0 [facility] Comment on above: Performed By: #### L AB103, LAB17 ####Weather Strip Mechanic: DOMENICA JARA ([id number])[facility] ([facility])[address] [place] [address] ALP [Catalytic activity/Vol] 241 U/L High 40-150 [facility] Comment on above: Performed By: #### L VARGHESE, LAB17 ####Weather Strip Mechanic: DOMENICA JARA ([id number])[facility] ([facility])[address] [place] [address] ALT [Catalytic activity/Vol] 11 U/L Normal <40 [facility] Comment on above: Performed By: #### Tameka KWONG, LAB17 ####Weather Strip Mechanic: DOMENICA JARA ([id number])[facility] ([facility])[address] [place] [address] Anion gap [Moles/Vol] 10 mmol/L Normal 3-13 [facility] Comment on above: Performed By: #### L AB103, LAB17 ####Weather Strip Mechanic: DOMENICA JARA ([id number])[facility] ([facility])[address] [place] [address] [place] AST [Catalytic activity/Vol] 50 U/L High <34 [facility] Comment on above: Performed By: #### L AB103, LAB17 ####Weather Strip Mechanic: DOMENICA JARA ([phone])[facility] ([facility])[address] [place] [address] [place] Bilirubin [Mass/Vol] 0.8 mg/dL Normal <1.2 [facility] Comment on above: Performed By: #### L AB103, LAB17 ####Weather Strip Mechanic: DOMENICA JARA ([id number])[facility] ([facility])[address] [place] [address] [place] Calcium [Mass/Vol] 9.0 mg/dL Normal 8.4-10.2 [facility] Comment on above: Performed By: #### L AB103, LAB17 ####Weather Strip Mechanic: DOMENICA JARA ([id number])[facility] [place] [address] [place] Chloride [Moles/Vol] 100 mmol/L Normal 98-107 [facility] Comment on above: Performed By: #### L AB103, LAB17 ####Weather Strip Mechanic: DOMENICA JARA ([phone])[facility] [place] [address] CO2 [Moles/Vol] 29 mmol/L Normal 22-29 [facility] Comment on above: Performed By: #### L AB103, LAB17 ####Weather Strip Mechanic: DOMENICA JARA ([phone])[facility] ([facility])[address] [place] [address] Creatinine [Mass/Vol] 2.64 mg/dL High 0.72-1.25 [facility] Comment on above: Performed By: #### L AB103, LAB17 ####Weather Strip Mechanic: DOMENICA JARA ([phone])[facility] ([facility])[address] [place] [address] [place] GLOMERULAR FILTRATION RATE ML/MIN/1.73 SQ M.PREDICTED 27.0 mL/min/1.73m*2 Low >60.0 [facility] Comment on above: Result Comment: Calc ulation based on the Chronic Kidney Disease Epidemiology Collaboration (CKD-EPI) equation refit without adjustment for race Performed By: #### L AB103, LAB17 ####Weather Strip Mechanic: DOMENICA JARA ([id number])[facility] ([facility])[address] [place] [address] [place] Glucose [Mass/Vol] 73 mg/dL Low 74-100 [facility] Comment on above: Performed By: #### L AB103, LAB17 ####Weather Strip Mechanic: DOMENICA JARA ([phone])[facility] ([facility])[address] [place] [address] [place] Potassium [Moles/Vol] 3.4 mmol/L Low 3.5-5.1 [facility] Comment on above: Result Comment: [facility] potassium values may be up to 0.5 mmol/L lower than serum values. Performed By: #### L AB103, LAB17 ####Weather Strip Mechanic: DOMENICA JARA ([phone])[facility])[address] [place] [address] Protein [Mass/Vol] 7.3 g/dL Normal 6.4-8.3 [facility] Comment on above: Performed By: #### L AB103, LAB17 ####Weather Strip Mechanic: DOMENICA JARA ([id number])[facility])[address] [place] [address] Sodium [Moles/Vol] 139 mmol/L Normal 136-145 [facility] Comment on above: Performed By: #### L AB103, LAB17 ####Weather Strip Mechanic: DOMENICA JARA ([phone])[facility])[address] [place] [address] Urea nitrogen [Mass/Vol] 16 mg/dL Normal 9-23 [facility] Comment on above: Performed By: #### L AB103, LAB17 ####Weather Strip Mechanic: DOMENICA JARA ([id number])[facility])[address] [place] [address] Comprehensive metabolic 1998 panelon 03-18-2025 Albumin [Mass/Vol] 2 g/dL Low 3.5 - 5.0 g/dL [facility] ALP [Catalytic activity/Vol] 241 U/L High 40 - 150 U/L [facility] ALT [Catalytic activity/Vol] 11 U/L NINF - 40 U/L [facility] Anion gap [Moles/Vol] 10 mmol/L 3 - 13 mmol/L [facility] AST [Catalytic activity/Vol] 50 U/L High NINF - 34 U/L [facility] Bilirubin [Mass/Vol] 0.8 mg/dL NINF - 1.2 mg/dL [facility] Calcium [Mass/Vol] 9 mg/dL 8.4 - 10. 2 mg/dL [facility] Chloride [Moles/Vol] 100 mmol/L 98 - 10 7 mmol/L [facility] CO2 [Moles/Vol] 29 mmol/L 22 - 29 mmol/L [facility] Creatinine [Mass/Vol] 2.64 mg/dL High 0.72 - 1.25 mg/dL [facility] GFR/1.73 sq M.predicted (S/P/Bld) [Vol rate/Area] 27 mL/min Low - PINF [facility] Comment on above: Calculation based on the Chronic Kidney Disease Epidemiology Collaboration (CKD-EPI) equation refit without adjustment for race Glucose [Mass/Vol] 73 mg/dL Low 74 - 100 mg/dL [facility] Interpretation and review of laboratory results Abnormal [facility] Potassium [Moles/Vol] 3.4 mmol/L Low 3.5 - 5.1 mmol/L [facility] Comment on above: Plasma potassium macey ues may be up to 0.5 mmol/L lower than serum values. Protein [Mass/Vol] 7.3 g/dL 6.4 - 8.3 g/dL [facility] Sodium [Moles/Vol] 139 mmol/L 136 - 145 mmol/L [facility] Urea nitrogen [Mass/Vol] 16 mg/dL 9 - 23 mg/d L [facility] Laboratory - Chemistry and C hemistry - challengeon 03-18-2025 Magnesium [Mass/Vol] 1.9 mg/dL 1.6 - 2 .6 mg/dL [facility] Laboratory - Coagulationon 0 03-18-2025 PT Coag (Bld) [Time] 15.2 s High 9.0 - 12.0 s [facility] MAGNESIUMon 03-18-2025 Magnesium [Mass/Vol] 1.9 mg/dL Normal 1.6-2.6 [facility] Comment on above: Result Comment: ORDE R COMMENTS:Higher values can be expected in females during menses. Performed By: #### L AB103, LAB17 ####Weather Strip Mechanic: DOMENICA JARA ([phone])[facility] ([facility])[address] [place] [address] Magnesium [Mass/Vol]on 03-18 Interpretation and review of laboratory results Normal [facility] Higher values can be expected in females during menses. [facility] No Panel Informationon 03-18 [facility] Interpretation and review of laboratory results Abnormal [facility] PROTHROMBIN TIMEon INR Coag (PPP) [Relative time] 1.5 {INR} High 0.9-1.1 [facility] Comment on above: Result Comment: Vaughn mmended [...] Myocardial Infarction Performed By: #### Tameka AB325, [id number] ####Weather Strip Mechanic: DOMENICA JARA ([phone])[address] PT Coag (PPP) [Time] 15.2 s High 9.0-12.0 [facility] Comment on above: Performed By: #### Tameka AB325, [id number] ####Weather Strip Mechanic: DOMENICA JARA ([id number])[place] [address] [place] PT Coag (Bld) [Time]on 03-18 INR Coag (PPP) [Relative time] 1.5 {INR} High 0.9 - 1.1 [facility] Comment on above: Recommended Anticoag ulant Therapy: [...] Infarction Progress Noteon 03-18-2025 Progress Note Normal [facility] Progress Note [facility] aPTT Coag (Bld) [Time]on aPTT Coag (PPP) [Time] 51.8 s High 20.0 - 30.5 s [facility] Interpretation and review of laboratory results Abnormal [facility] NOTE: The therapeutic time for Heparin anticoagulation, based on Xa activity inhibition, is an APTT of 46-80 seconds. [facility] aPTT Coag (PPP) [Time] 47.6 s High 20.0 - 30.5 s [facility] Interpretation and review of laboratory results Abnormal [facility] NOTE: The therapeutic time for Heparin anticoagulation, based on Xa activity inhibition, is an APTT of 46-80 seconds. [facility] aPTT Coag (PPP) [Time] 48.8 s High 20.0 - 30.5 s [facility] NOTE: The therapeutic time for Heparin anticoagulation, based on Xa activity inhibition, is an APTT of 46-80 seconds. [facility] 30on 03-17-2025 30 Normal [facility] APTTon 03-17-2025 aPTT Coag (Bld) [Time] 44.1 s High 20.0-30.5 [facility] Comment on above: Result Comment: ARPAN Kaplan COMMENTS:NOTE: The therapeutic time for Heparin anticoagulation, based on Xa activity inhibition, is an APTT of 46-80 seconds. Performed By: #### L AB325 ####Weather Strip Mechanic: DOMENICA JARA ([phone])[address] aPTT Coag (Bld) [Time] 29.1 s Normal 20.0-30.5 [facility] Comment on above: Result Comment: ARPAN Kaplan COMMENTS:NOTE: The therapeutic time for Heparin anticoagulation, based on Xa activity inhibition, is an APTT of 46-80 seconds. Performed By: #### L AB325 ####Weather Strip Mechanic: DOMENICA JARA ([phone])[address] CBC (HEMOGRAM)on 03-17-2025 Erythrocyte distribution width (RBC) [Ratio] 21.2 % High 11.5-15.0 [facility] Comment on above: Performed By: #### L AB294 ####Weather Strip Mechanic: DOMENICA JARA ([phone])[facility])[address] [place] [address] Hematocrit (Bld) [Volume fraction] 33.8 % Low 40.0-52.0 [facility] Comment on above: Performed By: #### L AB294 ####Weather Strip Mechanic: DOMENICA JARA ([phone])[facility])[address] [place] [address] Hemoglobin (Bld) [Mass/Vol] 10.0 g/dL Low 13.0-18.0 [facility] Comment on above: Performed By: #### L AB294 ####Weather Strip Mechanic: DOMENICA JARA ([phone])[facility])[address] [place] [address] MCH (RBC) [Entitic mass] 30.2 pg Normal 26.0-34.0 [facility] Comment on above: Performed By: #### L AB294 ####Weather Strip Mechanic: DOMENICA JARA ([phone])[facility] ([facility])[address] [place] [address] MCHC 29.6 % Low 30.5-36.0 [facility] Comment on above: Performed By: #### L AB294 ####Weather Strip Mechanic: DOMENICA JARA ([phone])[facility])[address] [place] [address] MCV (RBC) [Entitic vol] 102.1 fL High 77.0-99.0 [facility] Comment on above: Performed By: #### L AB294 ####Weather Strip Mechanic: DOMENICA JARA ([phone])[facility])[address] [place] [address] Platelet mean volume (Bld) [Entitic vol] 9.2 fL Normal 9.0-12.7 [facility] Comment on above: Performed By: #### L AB294 ####Weather Strip Mechanic: DOMENICA JARA ([phone])[facility])[address] [place] [address] Platelets (Bld) [#/Vol] 407 10*3/uL Normal 140-440 [facility] Comment on above: Performed By: #### L AB294 ####Weather Strip Mechanic: DOMENICA JARA ([phone])[facility])[address] [place] [address] RBC (Bld) [#/Vol] 3.31 10*6/uL Low 4.40-5.90 [facility] Comment on above: Performed By: #### L AB294 ####Weather Strip Mechanic: DOMENICA JARA ([phone])[address] WBC (Bld) [#/Vol] 6.7 10*3/uL Normal 3.6-10.7 [facility] Comment on above: Performed By: #### L AB294 ####Weather Strip Mechanic: DOMENICA JARA ([phone])[facility])[address] [place] [address] CBC panel Auto (Bld)Ordered By: Giancarlo Lakhani on 03-17-2025 Erythrocyte distribution width (RBC) [Ratio] 21.2 % High 11.5 - 15.0 % [facility] Hematocrit (Bld) [Volume fraction] 33.8 % Low 40.0 - 52.0 % [facility] Hemoglobin (Bld) [Mass/Vol] 10 g/dL Low 13.0 - 18.0 g/dL [facility] Interpretation and review of laboratory results Abnormal [facility] MCH (RBC) [Entitic mass] 30.2 pg 26. 0 - 34.0 pg [facility] MCHC (RBC) [Mass/Vol] 29.6 % Low 30.5 - 36.0 % [facility] MCV (RBC) [Entitic vol] 102.1 fL High 77.0 - 99.0 fL [facility] Platelet mean volume (Bld) [Entitic vol] 9.2 fL 9.0 - 12.7 fL [facility] Platelets (Bld) [#/Vol] 407 10*3/uL 140 - 440 10*3/uL [facility] RBC (Bld) [#/Vol] 3.31 10*6/uL Low 4.40 - 5.9 0 10*6/uL [facility] WBC (Bld) [#/Vol] 6.7 10*3/uL 3.6 - 10.7 10*3/uL [facility] COMPREHENSIVE METABOLIC PANE Victor M 03-17-2025 Albumin [Mass/Vol] 2.2 g/dL Low 3.5-5.0 [facility] Comment on above: Performed By: #### L AB17, [id number], [id number] ####Weather Strip Mechanic: DOMENICA JARA ([phone])[facility] ([facility])[address] [place] [address] ALP [Catalytic activity/Vol] 223 U/L High 40-150 [facility] Comment on above: Performed By: #### L AB17, [id number], [id number] ####Weather Strip Mechanic: DOMENICA JARA ([phone])[facility] ([facility])[address] [place] [address] ALT [Catalytic activity/Vol] 15 U/L Normal <40 [facility] Comment on above: Performed By: #### L AB17, [id number], [id number] ####Weather Strip Mechanic: DOMENICA JARA ([id number])[facility] ([facility])[address] [place] [address] Anion gap [Moles/Vol] 12 mmol/L Normal 3-13 [facility] Comment on above: Performed By: #### L AB17, [id number], [id number] ####Weather Strip Mechanic: DOMENICA JARA ([phone])[facility] ([facility])[address] [place] [address] AST [Catalytic activity/Vol] 54 U/L High <34 [facility] Comment on above: Performed By: #### L AB17, [id number], [id number] ####Weather Strip Mechanic: DOMENICA JARA ([phone])[facility])[address] [place] [address] Bilirubin [Mass/Vol] 0.9 mg/dL Normal <1.2 [facility] Comment on above: Performed By: #### L AB17, [id number], [id number] ####Weather Strip Mechanic: DOMENICA JARA ([phone])[facility])[address] [place] [address] Calcium [Mass/Vol] 9.6 mg/dL Normal 8.4-10.2 [facility] Comment on above: Performed By: #### L AB17, [id number], [id number] ####Weather Strip Mechanic: DOMENICA JARA ([id number])[facility] ([facility])[address] [place] [address] Chloride [Moles/Vol] 104 mmol/L Normal 98-107 [facility] Comment on above: Performed By: #### L AB17, [id number], [id number] ####Weather Strip Mechanic: DOMENICA JARA ([phone])[facility] ([facility])[address] [place] [address] CO2 [Moles/Vol] 25 mmol/L Normal 22-29 [facility] Comment on above: Performed By: #### L AB17, [id number], [id number] ####Weather Strip Mechanic: DOMENICA JARA ([id number])[facility] ([facility])[address] [place] [address] Creatinine [Mass/Vol] 3.25 mg/dL High 0.72-1.25 [facility] Comment on above: Performed By: #### L AB17, [id number], [id number] ####Weather Strip Mechanic: DOMENICA JARA ([phone])[facility])[address] [place] [address] GLOMERULAR FILTRATION RATE ML/MIN/1.73 SQ M.PREDICTED 21.1 mL/min/1.73m*2 Low >60.0 [facility] Comment on above: Result Comment: Calc ulation based on the Chronic Kidney Disease Epidemiology Collaboration (CKD-EPI) equation refit without adjustment for race Performed By: #### L AB17, [id number], [id number] ####Weather Strip Mechanic: DOMENICA JARA ([id number])[facility] ([facility])[address] [place] [address] [place] Glucose [Mass/Vol] 87 mg/dL Normal 74-100 [facility] Comment on above: Performed By: #### L AB17, [id number], [id number] ####Weather Strip Mechanic: DOMENICA JARA ([phone])[facility] ([facility])[address] [place] [address] Potassium [Moles/Vol] 3.9 mmol/L Normal 3.5-5.1 [facility] Comment on above: Result Comment: [facility] potassium values may be up to 0.5 mmol/L lower than serum values. Performed By: #### L AB17, [id number], [id number] ####Weather Strip Mechanic: DOMENICA JARA ([phone])[facility] ([facility])[address] [place] [address] Protein [Mass/Vol] 8.0 g/dL Normal 6.4-8.3 [facility] Comment on above: Performed By: #### L AB17, [id number], [id number] ####Weather Strip Mechanic: DOMENICA JARA ([phone])[facility] ([facility])[address] [place] [address] Sodium [Moles/Vol] 141 mmol/L Normal 136-145 [facility] Comment on above: Performed By: #### L AB17, [id number], [id number] ####Weather Strip Mechanic: DOMENICA JARA ([id number])[facility])[address] [place] [address] Urea nitrogen [Mass/Vol] 22 mg/dL Normal 9-23 [facility] Comment on above: Performed By: #### L AB17, [id number], [id number] ####Weather Strip Mechanic: DOMENICA JARA ([phone])[facility] ([facility])[address] [place] [address] Comprehensive metabolic 1998 panelon 03-17-2025 Albumin [Mass/Vol] 2.2 g/dL Low 3.5 - 5.0 g/dL [facility] ALP [Catalytic activity/Vol] 223 U/L High 40 - 150 U/L [facility] ALT [Catalytic activity/Vol] 15 U/L NINF - 40 U/L [facility] Anion gap [Moles/Vol] 12 mmol/L 3 - 13 mmol/L [facility] AST [Catalytic activity/Vol] 54 U/L High NINF - 34 U/L [facility] Bilirubin [Mass/Vol] 0.9 mg/dL NINF - 1.2 mg/dL [facility] Calcium [Mass/Vol] 9.6 mg/dL 8.4 - 10. 2 mg/dL [facility] Chloride [Moles/Vol] 104 mmol/L 98 - 10 7 mmol/L [facility] CO2 [Moles/Vol] 25 mmol/L 22 - 29 mmol/L [facility] Creatinine [Mass/Vol] 3.25 mg/dL High 0.72 - 1.25 mg/dL [facility] GFR/1.73 sq M.predicted (S/P/Bld) [Vol rate/Area] 21.1 mL/min Low - PINF [facility] Comment on above: Calculation based on the Chronic Kidney Disease Epidemiology Collaboration (CKD-EPI) equation refit without adjustment for race Glucose [Mass/Vol] 87 mg/dL 74 - 100 mg/dL [facility] Interpretation and review of laboratory results Abnormal [facility] Potassium [Moles/Vol] 3.9 mmol/L 3.5 - 5.1 mmol/L [facility] Comment on above: Plasma potassium macey ues may be up to 0.5 mmol/L lower than serum values. Protein [Mass/Vol] 8 g/dL 6.4 - 8.3 g/dL [facility] Sodium [Moles/Vol] 141 mmol/L 136 - 145 mmol/L [facility] Urea nitrogen [Mass/Vol] 22 mg/dL 9 - 23 mg/d L [facility] Laboratory - Chemistry and C hemistry - challengeon 03-17-2025 Magnesium [Mass/Vol] 2.2 mg/dL 1.6 - 2 .6 mg/dL [facility] Laboratory - Coagulationon 0 03-17-2025 PT Coag (Bld) [Time] 16 s High 9.0 - 12.0 s [facility] MAGNESIUMon 03-17-2025 Magnesium [Mass/Vol] 2.2 mg/dL Normal 1.6-2.6 [facility] Comment on above: Result Comment: ARPAN Kaplan COMMENTS:Higher values can be expected in females during menses. Performed By: #### L AB17, [id number], [id number] ####Weather Strip Mechanic: DOMENICA JARA ([phone])[facility] ([facility])[address] [place] [address] Magnesium [Mass/Vol]on 03-17 Interpretation and review of laboratory results Normal [facility] Higher values can be expected in females during menses. [facility] NT PRO BNPon 03-17-2025 NT PRO BNP >75234 High <125 [facility] Comment on above: Performed By: #### L AB17, [id number], [id number] ####Weather Strip Mechanic: DOMENICA JARA ([phone])[facility] ([facility])[address] [place] [address] Natriuretic peptide B [Mass/ Vol]on 03-17-2025 Interpretation and review of laboratory results Abnormal [facility] Natriuretic peptide B (Bld) [Mass/Vol] pg/mL High NINF - 125 pg/mL [facility] No Panel Informationon 03-17 [facility] Nursing Noteon 03-17-2025 Nursing Note Normal [facility] PROTHROMBIN TIMEon INR Coag (PPP) [Relative time] 1.5 {INR} High 0.9-1.1 [facility] Comment on above: Result Comment: Vaughn mmended [...] Myocardial Infarction Performed By: #### L AB320 ####Weather Strip Mechanic: DOMENICA JARA ([phone])[facility] ([facility])[address] [place] [address] PT Coag (PPP) [Time] 16.0 s High 9.0-12.0 [facility] Comment on above: Performed By: #### L AB320 ####Weather Strip Mechanic: DOMENICA JARA ([phone])[facility] ([facility])[address] [place] [address] PT Coag (Bld) [Time]on 03-17 INR Coag (PPP) [Relative time] 1.5 {INR} High 0.9 - 1.1 [facility] Comment on above: Recommended Anticoag ulant Therapy: [...] Interpretation and review of laboratory results Abnormal [facility] Progress Noteon 03-17-2025 Progress Note Normal [facility] Progress Note Normal [facility] Progress Note Normal [facility] aPTT Coag (Bld) [Time]on aPTT Coag (PPP) [Time] 44.1 s High 20.0 - 30.5 s [facility] Interpretation and review of laboratory results Abnormal [facility] NOTE: The therapeutic time for Heparin anticoagulation, based on Xa activity inhibition, is an APTT of 46-80 seconds. [facility] aPTT Coag (PPP) [Time] 29.1 s 20.0 - 30.5 s [facility] Interpretation and review of laboratory results Normal [facility] NOTE: The therapeutic time for Heparin anticoagulation, based on Xa activity inhibition, is an APTT of 46-80 seconds. [facility] 30on 03-16-2025 30 Normal [facility] 30 Normal [facility] CBC (HEMOGRAM)on 03-16-2025 Erythrocyte distribution width (RBC) [Ratio] 21.2 % High 11.5-15.0 [facility] Comment on above: Performed By: #### L AB294 ####Weather Strip Mechanic: DOMENICA JARA ([id number])[facility] ([facility])[address] [place] [address] Hematocrit (Bld) [Volume fraction] 30.2 % Low 40.0-52.0 [facility] Comment on above: Performed By: #### L AB294 ####Weather Strip Mechanic: DOMENICA JARA ([phone])[facility])[address] [place] [address] Hemoglobin (Bld) [Mass/Vol] 9.1 g/dL Low 13.0-18.0 [facility] Comment on above: Performed By: #### L AB294 ####Weather Strip Mechanic: DOMENICA JARA ([phone])[facility] ([facility])[address] [place] [address] MCH (RBC) [Entitic mass] 30.1 pg Normal 26.0-34.0 [facility] Comment on above: Performed By: #### L AB294 ####Weather Strip Mechanic: DOMENICA JARA ([phone])[facility])[address] [place] [address] MCHC 30.1 % Low 30.5-36.0 [facility] Comment on above: Performed By: #### L AB294 ####Weather Strip Mechanic: DOMENICA JARA ([phone])[facility])[address] [place] [address] MCV (RBC) [Entitic vol] 100.0 fL High 77.0-99.0 [facility] Comment on above: Performed By: #### L AB294 ####Weather Strip Mechanic: DOMENICA JARA ([id number])[facility])[address] [place] [address] Platelet mean volume (Bld) [Entitic vol] 9.0 fL Normal 9.0-12.7 [facility] Comment on above: Performed By: #### L AB294 ####Weather Strip Mechanic: DOMENICA JARA ([phone])[facility])[address] [place] [address] Platelets (Bld) [#/Vol] 372 10*3/uL Normal 140-440 [facility] Comment on above: Performed By: #### L AB294 ####Weather Strip Mechanic: DOMENICA JARA ([phone])[facility])[address] [place] [address] RBC (Bld) [#/Vol] 3.02 10*6/uL Low 4.40-5.90 [facility] Comment on above: Performed By: #### L AB294 ####Weather Strip Mechanic: DOMENICA JARA ([phone])[facility])[address] [place] [address] WBC (Bld) [#/Vol] 7.0 10*3/uL Normal 3.6-10.7 [facility] Comment on above: Performed By: #### L AB294 ####Weather Strip Mechanic: DOMENICA JARA ([phone])[facility] ([facility])[address] [place] [address] CBC panel Auto (Bld)Ordered By: Callie Steele on 03-16-2025 Erythrocyte distribution width (RBC) [Ratio] 21.2 % High 11.5 - 15.0 % [facility] Hematocrit (Bld) [Volume fraction] 30.2 % Low 40.0 - 52.0 % [facility] Hemoglobin (Bld) [Mass/Vol] 9.1 g/dL Low 13.0 - 18.0 g/dL [facility] Interpretation and review of laboratory results Abnormal [facility] MCH (RBC) [Entitic mass] 30.1 pg 26. 0 - 34.0 pg [facility] MCHC (RBC) [Mass/Vol] 30.1 % Low 30.5 - 36.0 % [facility] MCV (RBC) [Entitic vol] 100 fL High 77.0 - 99.0 fL [facility] Platelet mean volume (Bld) [Entitic vol] 9 fL 9.0 - 12.7 fL [facility] Platelets (Bld) [#/Vol] 372 10*3/uL 140 - 440 10*3/uL [facility] RBC (Bld) [#/Vol] 3.02 10*6/uL Low 4.40 - 5.9 0 10*6/uL [facility] WBC (Bld) [#/Vol] 7 10*3/uL 3.6 - 10.7 10*3/uL [facility] COMPREHENSIVE METABOLIC PANE Victor M 03-16-2025 Albumin [Mass/Vol] 2.0 g/dL Low 3.5-5.0 [facility] Comment on above: Performed By: #### L AB17, [id number] ####Weather Strip Mechanic: DOMENICA JARA ([id number])[facility] ([facility])[address] [place] [address] ALP [Catalytic activity/Vol] 194 U/L High 40-150 [facility] Comment on above: Performed By: #### L AB17, [id number] ####Weather Strip Mechanic: DOMENICA JARA ([phone])[facility] ([facility])[address] [place] [address] ALT [Catalytic activity/Vol] 13 U/L Normal <40 [facility] Comment on above: Performed By: #### L AB17, [id number] ####Weather Strip Mechanic: DOMENICA JARA ([id number])[facility] ([facility])[address] [place] [address] Anion gap [Moles/Vol] 9 mmol/L Normal 3-13 [facility] Comment on above: Performed By: #### L AB17, [id number] ####Weather Strip Mechanic: DOMENICA JARA ([phone])[facility] ([facility])[address] [place] [address] [place] AST [Catalytic activity/Vol] 47 U/L High <34 [facility] Comment on above: Performed By: #### L AB17, [id number] ####Weather Strip Mechanic: DOMENICA JARA ([phone])[facility] ([facility])[address] [place] [address] [place] Bilirubin [Mass/Vol] 0.9 mg/dL Normal <1.2 [facility] Comment on above: Performed By: #### L AB17, [id number] ####Weather Strip Mechanic: DOMENICA JARA ([id number])[facility] ([facility])[address] [place] [address] [place] Calcium [Mass/Vol] 9.1 mg/dL Normal 8.4-10.2 [facility] Comment on above: Performed By: #### L AB17, [id number] ####Weather Strip Mechanic: DOMENICA JARA ([phone])[facility])[address] [place] [address] Chloride [Moles/Vol] 104 mmol/L Normal 98-107 [facility] Comment on above: Performed By: #### L AB17, [id number] ####Weather Strip Mechanic: DOMENICA JARA ([id number])[facility] ([facility])[address] [place] [address] [place] CO2 [Moles/Vol] 26 mmol/L Normal 22-29 [facility] Comment on above: Performed By: #### L AB17, [id number] ####Weather Strip Mechanic: DOMENICA JARA ([phone])[facility] ([facility])[address] [place] [address] Creatinine [Mass/Vol] 2.35 mg/dL High 0.72-1.25 [facility] Comment on above: Performed By: #### L AB17, [id number] ####Weather Strip Mechanic: DOMENICA JARA ([id number])[facility] ([facility])[address] [place] [address] GLOMERULAR FILTRATION RATE ML/MIN/1.73 SQ M.PREDICTED 31.1 mL/min/1.73m*2 Low >60.0 [facility] Comment on above: Result Comment: Calc ulation based on the Chronic Kidney Disease Epidemiology Collaboration (CKD-EPI) equation refit without adjustment for race Performed By: #### L AB17, [id number] ####Weather Strip Mechanic: DOMENICA JARA ([phone])[facility] ([facility])[address] [place] [address] [place] Glucose [Mass/Vol] 83 mg/dL Normal 74-100 [facility] Comment on above: Performed By: #### L AB17, [id number] ####Weather Strip Mechanic: DOMENICA JARA ([phone])[facility])[address] [place] [address] [place] Potassium [Moles/Vol] 4.1 mmol/L Normal 3.5-5.1 [facility] Comment on above: Result Comment: [facility] potassium values may be up to 0.5 mmol/L lower than serum values. Performed By: #### L AB17, [id number] ####Weather Strip Mechanic: DOMENICA JARA ([phone])[facility] ([facility])[address] [place] [address] Protein [Mass/Vol] 7.3 g/dL Normal 6.4-8.3 [facility] Comment on above: Performed By: #### L AB17, [id number] ####Weather Strip Mechanic: DOMENICA JARA ([phone])[facility] ([facility])[address] [place] [address] Sodium [Moles/Vol] 139 mmol/L Normal 136-145 [facility] Comment on above: Performed By: #### L AB17, [id number] ####Weather Strip Mechanic: DOMENICA JARA ([phone])[facility])[address] [place] [address] Urea nitrogen [Mass/Vol] 18 mg/dL Normal 9-23 [facility] Comment on above: Performed By: #### L AB17, [id number] ####Weather Strip Mechanic: DOMENICA JARA ([phone])[facility])[address] [place] [address] Comprehensive metabolic 1998 panelon 03-16-2025 Albumin [Mass/Vol] 2 g/dL Low 3.5 - 5.0 g/dL [facility] ALP [Catalytic activity/Vol] 194 U/L High 40 - 150 U/L [facility] ALT [Catalytic activity/Vol] 13 U/L NINF - 40 U/L [facility] Anion gap [Moles/Vol] 9 mmol/L 3 - 13 mmol/L [facility] AST [Catalytic activity/Vol] 47 U/L High NINF - 34 U/L [facility] Bilirubin [Mass/Vol] 0.9 mg/dL NINF - 1.2 mg/dL [facility] Calcium [Mass/Vol] 9.1 mg/dL 8.4 - 10. 2 mg/dL [facility] Chloride [Moles/Vol] 104 mmol/L 98 - 10 7 mmol/L [facility] CO2 [Moles/Vol] 26 mmol/L 22 - 29 mmol/L [facility] Creatinine [Mass/Vol] 2.35 mg/dL High 0.72 - 1.25 mg/dL [facility] GFR/1.73 sq M.predicted (S/P/Bld) [Vol rate/Area] 31.1 mL/min Low - PINF [facility] Comment on above: Calculation based on the Chronic Kidney Disease Epidemiology Collaboration (CKD-EPI) equation refit without adjustment for race Glucose [Mass/Vol] 83 mg/dL 74 - 100 mg/dL [facility] Interpretation and review of laboratory results Abnormal [facility] Potassium [Moles/Vol] 4.1 mmol/L 3.5 - 5.1 mmol/L [facility] Comment on above: Plasma potassium macey ues may be up to 0.5 mmol/L lower than serum values. Protein [Mass/Vol] 7.3 g/dL 6.4 - 8.3 g/dL [facility] Sodium [Moles/Vol] 139 mmol/L 136 - 145 mmol/L [facility] Urea nitrogen [Mass/Vol] 18 mg/dL 9 - 23 mg/d L [facility] Laboratory - Chemistry and C hemistry - challengeon 03-16-2025 Magnesium [Mass/Vol] 2 mg/dL 1.6 - 2 .6 mg/dL [facility] Laboratory - Coagulationon 0 03-16-2025 PT Coag (Bld) [Time] 17.3 s High 9.0 - 12.0 s [facility] MAGNESIUMon 03-16-2025 Magnesium [Mass/Vol] 2.0 mg/dL Normal 1.6-2.6 [facility] Comment on above: Result Comment: ARPAN R COMMENTS:Higher values can be expected in females during menses. Performed By: #### L AB17, [id number] ####Weather Strip Mechanic: DOMENICA JARA ([phone])[facility] ([address] Magnesium [Mass/Vol]on 03-16 Interpretation and review of laboratory results Normal [facility] Higher values can be expected in females during menses. [facility] No Panel Informationon 03-16 [facility] PROTHROMBIN TIMEon INR Coag (PPP) [Relative time] 1.7 {INR} High 0.9-1.1 [facility] Comment on above: Result Comment: Vaughn mmended [...] Myocardial Infarction Performed By: #### L AB320 ####Weather Strip Mechanic: DOMENICA JARA ([phone])[facility] ([facility])[address] [place] [address] PT Coag (PPP) [Time] 17.3 s High 9.0-12.0 [facility] Comment on above: Performed By: #### Tameka AB320 ####Weather Strip Mechanic: DOMENICA JARA ([phone])[facility] ([facility])[address] [place] [address] [place] PT Coag (Bld) [Time]on 03-16 INR Coag (PPP) [Relative time] 1.7 {INR} High 0.9 - 1.1 [facility] Comment on above: Recommended Anticoag ulant Therapy: [...] Interpretation and review of laboratory results Abnormal [facility] Progress Noteon 03-16-2025 Progress Note Normal [facility] Progress Note Normal [facility] Progress [facility] Progress Note [facility] Progress Note Normal [facility] 30on 03-15-2025 30 Normal [facility] 30 Normal [facility] [id number] 03-15-2025 [id number] Normal [facility] CBC (HEMOGRAM)on 03-15-2025 Erythrocyte distribution width (RBC) [Ratio] 21.3 % High 11.5-15.0 [facility] Comment on above: Performed By: #### L AB294 ####Weather Strip Mechanic: DOMENICA JARA ([id number])[facility])[address] [place] [address] Hematocrit (Bld) [Volume fraction] 30.1 % Low 40.0-52.0 [facility] Comment on above: Performed By: #### L AB294 ####Weather Strip Mechanic: DOMENICA JARA ([id number])[address] Hemoglobin (Bld) [Mass/Vol] 9.2 g/dL Low 13.0-18.0 [facility] Comment on above: Performed By: #### L AB294 ####Weather Strip Mechanic: DOMENICA JARA ([phone])[facility])[address] [place] [address] MCH (RBC) [Entitic mass] 30.5 pg Normal 26.0-34.0 [facility] Comment on above: Performed By: #### L AB294 ####Weather Strip Mechanic: DOMENICA JARA ([phone])[facility])[address] [place] [address] MCHC 30.6 % Normal 30.5-36.0 [facility] Comment on above: Performed By: #### L AB294 ####Weather Strip Mechanic: DOMENICA JARA ([id number])[address] MCV (RBC) [Entitic vol] 99.7 fL High 77.0-99.0 [facility] Comment on above: Performed By: #### L AB294 ####Weather Strip Mechanic: DOMENICA JARA ([id number])[facility])[address] [place] [address] Platelet mean volume (Bld) [Entitic vol] 9.0 fL Normal 9.0-12.7 [facility] Comment on above: Performed By: #### L AB294 ####Weather Strip Mechanic: DOMENICA JARA ([id number])[facility])[address] [place] [address] Platelets (Bld) [#/Vol] 392 10*3/uL Normal 140-440 [facility] Comment on above: Performed By: #### L AB294 ####Weather Strip Mechanic: DOMENICA JARA ([id number])[facility])[address] [place] [address] RBC (Bld) [#/Vol] 3.02 10*6/uL Low 4.40-5.90 [facility] Comment on above: Performed By: #### L AB294 ####Weather Strip Mechanic: DOMENICA JARA ([id number])[facility])[address] [place] [address] WBC (Bld) [#/Vol] 6.7 10*3/uL Normal 3.6-10.7 [facility] Comment on above: Performed By: #### L AB294 ####Weather Strip Mechanic: DOMENICA JARA ([phone])[address] CBC panel Auto (Bld)on 03-15 Erythrocyte distribution width (RBC) [Ratio] 21.3 % High 11.5 - 15.0 % [facility] Hematocrit (Bld) [Volume fraction] 30.1 % Low 40.0 - 52.0 % [facility] Hemoglobin (Bld) [Mass/Vol] 9.2 g/dL Low 13.0 - 18.0 g/dL [facility] Interpretation and review of laboratory results Abnormal [facility] MCH (RBC) [Entitic mass] 30.5 pg 26. 0 - 34.0 pg [facility] MCHC (RBC) [Mass/Vol] 30.6 % 30.5 - 36.0 % [facility] MCV (RBC) [Entitic vol] 99.7 fL High 77.0 - 99.0 fL [facility] Platelet mean volume (Bld) [Entitic vol] 9 fL 9.0 - 12.7 fL [facility] Platelets (Bld) [#/Vol] 392 10*3/uL 140 - 440 10*3/uL [facility] RBC (Bld) [#/Vol] 3.02 10*6/uL Low 4.40 - 5.9 0 10*6/uL [facility] WBC (Bld) [#/Vol] 6.7 10*3/uL 3.6 - 10.7 10*3/uL [facility] COMPREHENSIVE METABOLIC PANE Victor M 03-15-2025 Albumin [Mass/Vol] 2.0 g/dL Low 3.5-5.0 [facility] Comment on above: Performed By: #### Tameka AB103, LAB17 ####Weather Strip Mechanic: DOMENICA JARA ([id number])[facility])[address] [place] [address] ALP [Catalytic activity/Vol] 201 U/L High 40-150 [facility] Comment on above: Performed By: #### Tameka KWONG, LAB17 ####Weather Strip Mechanic: DOMENICA JARA ([id number])[facility])[address] [place] [address] ALT [Catalytic activity/Vol] 14 U/L Normal <40 [facility] Comment on above: Performed By: #### Tameka KWONG, LAB17 ####Weather Strip Mechanic: DOMENICA JARA ([phone])[facility])[address] [place] [address] Anion gap [Moles/Vol] 11 mmol/L Normal 3-13 [facility] Comment on above: Performed By: #### Tameka AB103, LAB17 ####Weather Strip Mechanic: DOMENICA JARA ([id number])[facility])[address] [place] [address] AST [Catalytic activity/Vol] 49 U/L High <34 [facility] Comment on above: Performed By: #### L AB103, LAB17 ####Weather Strip Mechanic: DOMENICA JARA ([id number])[facility] ([facility] [place] [address] [place] Bilirubin [Mass/Vol] 0.8 mg/dL Normal <1.2 [facility] Comment on above: Performed By: #### L AB103, LAB17 ####Weather Strip Mechanic: DOMENICA JARA ([id number])[facility] ([facility])[address] [place] [address] Calcium [Mass/Vol] 9.2 mg/dL Normal 8.4-10.2 [facility] Comment on above: Performed By: #### L AB103, LAB17 ####Weather Strip Mechanic: DOMENICA JARA ([phone])[facility] ([facility])[address] [place] [address] Chloride [Moles/Vol] 100 mmol/L Normal 98-107 [facility] Comment on above: Performed By: #### Tameka KWONG, LAB17 ####Weather Strip Mechanic: DOMENICA JARA ([id number])[facility] ([facility] [place] [address] [place] CO2 [Moles/Vol] 28 mmol/L Normal 22-29 [facility] Comment on above: Performed By: #### L AB103, LAB17 ####Weather Strip Mechanic: DOMENICA JARA ([id number])[facility] ([facility])[address] [place] [address] [place] Creatinine [Mass/Vol] 3.13 mg/dL High 0.72-1.25 [facility] Comment on above: Performed By: #### L AB103, LAB17 ####Weather Strip Mechanic: DOMENICA JARA ([id number])[facility] ([facility])[address] [place] [address] [place] GLOMERULAR FILTRATION RATE ML/MIN/1.73 SQ M.PREDICTED 22.0 mL/min/1.73m*2 Low >60.0 [facility] Comment on above: Result Comment: Calc ulation based on the Chronic Kidney Disease Epidemiology Collaboration (CKD-EPI) equation refit without adjustment for race Performed By: #### L AB103, LAB17 ####Weather Strip Mechanic: DOMENICA JARA ([id number])[facility] ([facility])[address] [place] [address] Glucose [Mass/Vol] 91 mg/dL Normal 74-100 [facility] Comment on above: Performed By: #### L AB103, LAB17 ####Weather Strip Mechanic: DOMENICA JARA ([phone])[facility] ([facility])[address] [place] [address] Potassium [Moles/Vol] 4.5 mmol/L Normal 3.5-5.1 [facility] Comment on above: Result Comment: [facility] potassium values may be up to 0.5 mmol/L lower than serum values. Performed By: #### L AB103, LAB17 ####Weather Strip Mechanic: DOMENICA JARA ([id number])[facility] ([facility])[address] [place] [address] Protein [Mass/Vol] 7.6 g/dL Normal 6.4-8.3 [facility] Comment on above: Performed By: #### L AB103, LAB17 ####Weather Strip Mechanic: DOMENICA JARA ([phone])[facility] ([facility])[address] [place] [address] Sodium [Moles/Vol] 139 mmol/L Normal 136-145 [facility] Comment on above: Performed By: #### L AB103, LAB17 ####Weather Strip Mechanic: DOMENICA JARA ([id number])[facility] ([facility])[address] [place] [address] Urea nitrogen [Mass/Vol] 30 mg/dL High 9-23 [facility] Comment on above: Performed By: #### L AB103, LAB17 ####Weather Strip Mechanic: DOMENICA JARA ([phone])[facility])[address] [place] [address] Comprehensive metabolic 1998 panelOrdered By: Jenni Romano on 03-15-2025 Albumin [Mass/Vol] 2 g/dL Low 3.5 - 5.0 g/dL [facility] ALP [Catalytic activity/Vol] 201 U/L High 40 - 150 U/L [facility] ALT [Catalytic activity/Vol] 14 U/L NINF - 40 U/L [facility] Anion gap [Moles/Vol] 11 mmol/L 3 - 13 mmol/L [facility] AST [Catalytic activity/Vol] 49 U/L High NINF - 34 U/L [facility] Bilirubin [Mass/Vol] 0.8 mg/dL NINF - 1.2 mg/dL [facility] Calcium [Mass/Vol] 9.2 mg/dL 8.4 - 10. 2 mg/dL [facility] Chloride [Moles/Vol] 100 mmol/L 98 - 10 7 mmol/L [facility] CO2 [Moles/Vol] 28 mmol/L 22 - 29 mmol/L [facility] Creatinine [Mass/Vol] 3.13 mg/dL High 0.72 - 1.25 mg/dL [facility] GFR/1.73 sq M.predicted (S/P/Bld) [Vol rate/Area] 22 mL/min Low - PINF [facility] Comment on above: Calculation based on the Chronic Kidney Disease Epidemiology Collaboration (CKD-EPI) equation refit without adjustment for race Glucose [Mass/Vol] 91 mg/dL 74 - 100 mg/dL [facility] Interpretation and review of laboratory results Abnormal [facility] Potassium [Moles/Vol] 4.5 mmol/L 3.5 - 5.1 mmol/L [facility] Comment on above: Plasma potassium macey ues may be up to 0.5 mmol/L lower than serum values. Protein [Mass/Vol] 7.6 g/dL 6.4 - 8.3 g/dL [facility] Sodium [Moles/Vol] 139 mmol/L 136 - 145 mmol/L [facility] Urea nitrogen [Mass/Vol] 30 mg/dL High 9 - 23 mg/d L [facility] Consulton 03-15-2025 Consult Normal [facility] Consult Normal [facility] FREE T4on 03-15-2025 Free T4 [Mass/Vol] 0.89 ng/dL Normal 0.70-1.48 [facility] Comment on above: Performed By: #### L AB127 ####Weather Strip Mechanic: DOMENICA JARA ([id number])[facility] [address] Free T4 [Mass/Vol]on 025 Free T4 Dialysis [Mass/Vol] 0.89 ng/dL 0.70 - 1.48 ng/dL [facility] Interpretation and review of laboratory results Normal [facility] Laboratory - Chemistry and C hemistry - challengeon 03-15-2025 Magnesium [Mass/Vol] 2 mg/dL 1.6 - 2 .6 mg/dL [facility] Laboratory - Coagulationon 0 03-15-2025 PT Coag (Bld) [Time] 17.9 s High 9.0 - 12.0 s [facility] MAGNESIUMon 03-15-2025 Magnesium [Mass/Vol] 2.0 mg/dL Normal 1.6-2.6 [facility] Comment on above: Result Comment: ARPAN R COMMENTS:Higher values can be expected in females during menses. Performed By: #### L AB103, LAB17 ####Weather Strip Mechanic: DOMENICA JARA ([phone])[facility])[address] [place] [address] Magnesium [Mass/Vol]on 03-15 Interpretation and review of laboratory results Normal [facility] Higher values can be expected in females during menses. [facility] Nursing Noteon 03-15-2025 Nursing Note Normal [facility] Nursing Note Normal [facility] PROTHROMBIN TIMEon INR Coag (PPP) [Relative time] 1.7 {INR} High 0.9-1.1 [facility] Comment on above: Result Comment: Vaughn mmended [...] Myocardial Infarction Performed By: #### L AB320 ####Weather Strip Mechanic: DOMENICA JARA ([phone])[facility])[address] [place] [address] [place] PT Coag (PPP) [Time] 17.9 s High 9.0-12.0 [facility] Comment on above: Performed By: #### L AB320 ####Weather Strip Mechanic: DOMENICA JARA ([id number])[facility] ([facility])[address] [place] [address] [facility] PT Coag (Bld) [Time]on 03-15 INR Coag (PPP) [Relative time] 1.7 {INR} High 0.9 - 1.1 [facility] Comment on above: Recommended Anticoag ulant Therapy: [...] Interpretation and review of laboratory results Abnormal [facility] Progress Noteon 03-15-2025 Progress Note Normal [facility] Progress Note Normal [facility] Progress Note Normal [facility] Prothrombin Time w/INRon INR Normal [facility] Comment on above: Order Comment: 413.2 Result Comment: [facility] Performed By: #### L [id number] #### [facility] [address] [place], [place], [id number] PROTIME Normal 11.7-14.9 [facility] Comment on above: Order Comment: 413.2 Result Comment: [facility] Performed By: #### L [id number] #### [facility] [address] [place], [place], [id number] [place] Lower extremity arteryOrd ered By: Sulaiman Mullen on 03-15-2025 Right arm BP 130 mmHg [facility] Work Phone: [place] Lower extremity arteryon 03-15-2025 [...] feet. CV CPACS 30on 03-14-2025 30 Normal [facility] [id number] 03-14-2025 [id number] Normal [facility] BASIC METABOLIC PANELon 06- Anion gap [Moles/Vol] 11 mmol/L Normal 3-13 [facility] Comment on above: Performed By: #### L AB15, [id number], LAB18 ####Weather Strip Mechanic: DOMENICA JARA ([phone])[facility] ([facility])[address] [place] [address] Calcium [Mass/Vol] 10.1 mg/dL Normal 8.4-10.2 [facility] Comment on above: Performed By: #### L AB15, [id number], LAB18 ####Weather Strip Mechanic: DOMENICA JARA ([id number])[facility] ([facility])[address] [place] [address] Chloride [Moles/Vol] 102 mmol/L Normal 98-107 [facility] Comment on above: Performed By: #### L AB15, [id number], LAB18 ####Weather Strip Mechanic: DOMENICA JARA ([phone])[facility])[address] [place] [address] CO2 [Moles/Vol] 28 mmol/L Normal 22-29 [facility] Comment on above: Performed By: #### L AB15, [id number], LAB18 ####Weather Strip Mechanic: DOMENICA JARA ([id number])[facility])[address] [place] [address] Creatinine [Mass/Vol] 4.96 mg/dL High 0.72-1.25 [facility] Comment on above: Performed By: #### L AB15, [id number], LAB18 ####Weather Strip Mechanic: DOMENICA JARA ([phone])[facility])[address] [place] [address] GLOMERULAR FILTRATION RATE ML/MIN/1.73 SQ M.PREDICTED 12.7 mL/min/1.73m*2 Low >60.0 [facility] Comment on above: Result Comment: Calc ulation based on the Chronic Kidney Disease Epidemiology Collaboration (CKD-EPI) equation refit without adjustment for race Performed By: #### L AB15, [id number], LAB18 ####Weather Strip Mechanic: DOMENICA JARA ([phone])[facility])[address] [place] [address] Glucose [Mass/Vol] 99 mg/dL Normal 74-100 [facility] Comment on above: Performed By: #### L AB15, [id number], LAB18 ####Weather Strip Mechanic: DOMENICA JARA ([phone])[facility])[address] [place] [address] Potassium [Moles/Vol] 5.2 mmol/L High 3.5-5.1 [facility] Comment on above: Result Comment: [facility] potassium values may be up to 0.5 mmol/L lower than serum values. Performed By: #### L AB15, [id number], LAB18 ####Weather Strip Mechanic: DOMENICA JARA ([phone])[facility] ([facility])[address] [place] [address] Sodium [Moles/Vol] 141 mmol/L Normal 136-145 [facility] Comment on above: Performed By: #### L AB15, [id number], LAB18 ####Weather Strip Mechanic: DOMENICA JARA ([phone])[facility] ([facility])[address] [place] [address] Urea nitrogen [Mass/Vol] 57 mg/dL High 9-23 [facility] Comment on above: Performed By: #### L AB15, [id number], LAB18 ####Weather Strip Mechanic: DOMENICA JARA ([phone])[facility] ([facility])[address] [place] [address] Basic metabolic 1998 panelOr dered By: Brandy Ross on 03-14-2025 Anion gap [Moles/Vol] 11 mmol/L 3 - 13 mmol/L [facility] Calcium [Mass/Vol] 10.1 mg/dL 8.4 - 10. 2 mg/dL [facility] Chloride [Moles/Vol] 102 mmol/L 98 - 10 7 mmol/L [facility] CO2 [Moles/Vol] 28 mmol/L 22 - 29 mmol/L [facility] Creatinine [Mass/Vol] 4.96 mg/dL High 0.72 - 1.25 mg/dL [facility] GFR/1.73 sq M.predicted (S/P/Bld) [Vol rate/Area] 12.7 mL/min Low - PINF [facility] Comment on above: Calculation based on the Chronic Kidney Disease Epidemiology Collaboration (CKD-EPI) equation refit without adjustment for race Glucose [Mass/Vol] 99 mg/dL 74 - 100 mg/dL [facility] Interpretation and review of laboratory results Abnormal [facility] Potassium [Moles/Vol] 5.2 mmol/L High 3.5 - 5.1 mmol/L [facility] Comment on above: Plasma potassium macey ues may be up to 0.5 mmol/L lower than serum values. Sodium [Moles/Vol] 141 mmol/L 136 - 145 mmol/L [facility] Urea nitrogen [Mass/Vol] 57 mg/dL High 9 - 23 mg/d L [facility] Consulton 03-14-2025 Consult Normal [facility] Consult Normal [facility] Consult Normal [facility] Consult Normal [facility] ECG 12-LEADon 03-14-2025 ECG 12-LEAD IMPRESSION: Atrial flutter IVCD, consider RBBB Probable lateral infarct, age indeterminate Anteroseptal infarct, 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 Electronically Signed On 03-14-2025 15:38:49 EDT by Ryan Magdaleno Normal [facility] LIPID PANELon 03-14-2025 Cholesterol [Mass/Vol] 159 mg/dL Normal <200 [facility] Comment on above: Performed By: #### L AB15, [id number], LAB18 ####Weather Strip Mechanic: DOMENICA JARA ([id number])[facility] ([facility])[address] [place] [address] Cholesterol in HDL [Mass/Vol] 30 mg/dL Low >=60 [facility] Comment on above: Performed By: #### L AB15, [id number], LAB18 ####Weather Strip Mechanic: DOMENICA JARA ([id number])[facility])[address] [place] [address] Cholesterol.total/Choles terol in HDL [Mass ratio] 5 {ratio} Normal [facility] Comment on above: Result Comment: Ref Range:< 3 Low Risk for CHD3-6 Mod Risk for CHD> 6 High Risk for CHD Performed By: #### L AB15, [id number], LAB18 ####Weather Strip Mechanic: DOMENICA JARA ([id number])[facility] [place] [address] LOW DENSITY LIPOPROTEIN 109 mg/dL High 0-<100 [facility] Comment on above: Performed By: #### L AB15, [id number], LAB18 ####Weather Strip Mechanic: DOMENICA JARA ([phone])[facility])[address] [place] [address] NON-HDL CHOLESTEROL, CALCULATED 129 Normal <130 [facility] Comment on above: Performed By: #### L AB15, [id number], LAB18 ####Weather Strip Mechanic: DOMENICA JARA ([phone])[facility] ([facility])[address] [place] [address] Triglyceride [Mass/Vol] 98 mg/dL Normal <150 [facility] Comment on above: Performed By: #### L AB15, [id number], LAB18 ####Weather Strip Mechanic: DOMENICA JARA ([id number])[facility] ([facility])[address] [place] [address] VERY LOW DENSITY LIPOPROTEIN, CALCULATED 20 mg/dL Normal <=30 [facility] Comment on above: Performed By: #### L AB15, [id number], LAB18 ####Weather Strip Mechanic: DOMENICA JARA ([phone])[facility] ([facility])[address] [place] [address] Laboratory - Chemistry and C hemistry - challengeon 03-14-2025 Magnesium [Mass/Vol] 2.2 mg/dL 1.6 - 2 .6 mg/dL [facility] Lipid 1996 panelon Cholesterol [Mass/Vol] 159 mg/dL NINF - 200 mg/dL [facility] Cholesterol in HDL [Mass/Vol] 30 mg/dL Low 60 - PINF mg/dL [facility] Cholesterol in LDL [Mass/Vol] 109 mg/dL High 0 - <100 [facility] Cholesterol.total/Choles terol in HDL [Mass ratio] 5 {ratio} [facility] Comment on above: Ref Range: < 3 Low Risk for CHD 3-6 Mod Risk for CHD > 6 High Risk for CHD Interpretation and review of laboratory results Abnormal [facility] NON-HDL CHOLESTEROL, CALCULATED 129 NINF - 130 [facility] Triglyceride [Mass/Vol] 98 mg/dL NINF - 150 mg/dL [facility] VERY LOW DENSITY LIPOPROTEIN, CALCULATED 20 mg/dL NINF - 30 mg/dL [facility] MAGNESIUMon 03-14-2025 Magnesium [Mass/Vol] 2.2 mg/dL Normal 1.6-2.6 [facility] Comment on above: Result Comment: ARPAN Kaplan COMMENTS:Higher values can be expected in females during menses. Performed By: #### L AB15, [id number], [id number] ####Weather Strip Mechanic: DOMENICA JARA ([id number])[facility] ([place] [address] [place] Magnesium [Mass/Vol]on 03-14 Interpretation and review of laboratory results Normal [facility] Higher values can be expected in females during menses. [facility] No Panel InformationOrdered By: Ryan Magdaleno on 03-14-2025 P [place] 0 degrees [employer] Work Phone: VT Interval 0 ms [employer] Work Phone: QRS [place] 146 degrees [employer] Work Phone: QRSD Interval 127 ms [employer] Work Phone: QT Interval 397 ms [employer] Work Phone: QTC Interval 542 ms [employer] Work Phone: T Wave [place] -57 degrees [employer] Work Phone: [employer] Work Phone: No Panel Informationon 03-14 Atrial flutter IVCD, consider RBBB Probable lateral infarct, age indeterminate Anteroseptal infarct, 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 Electronically Signed On 03-14-2025 15:38:49 EDT by Ryan Yeboah MD - 03/14/2025 IMPRESSION: Atrial flutter IVCD, consider RBBB Probable lateral infarct, age indeterminate Anteroseptal infarct, 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 Electronically Signed On 03-14-2025 15:38:49 EDT by Ryan Magdaleno [facility] Nursing Noteon 03-14-2025 Nursing Note Normal [facility] Progress Noteon 03-14-2025 Progress Note Normal [facility] Normal [facility] Progress Note Normal [facility] Vital signsOrdered By: Ryan Magdaleno on 03-14-2025 Heart rate 112 /min bpm [facility] Work Phone: 30on 03-13-2025 30 Normal [facility] BLOOD GAS, VENOUSon 03-13-20 25 AMOUNT OF OXYGEN Normal [facility] Comment on above: Result Comment: ARPAN Kaplan COMMENTS:Assessment of oxygenation is best done with an arterial blood gas determination. Reference ranges for pO2, bicarbonate, and base excess are for mixed venous blood. Specimens drawn from a peripheral vein will often have higher values. Performed By: #### L [id number] ####Weather Strip Mechanic: FENG CONSTANTINO ([id number])[facility] [place] (SBHLAB)[address] Base excess Calc (BldV) [Moles/Vol] 2.2 mmol/L Normal -3.0-3.0 [facility] Comment on above: Performed By: #### L [id number] ####Weather Strip Mechanic: FENG CONSTANTINO ([id number])[facility] (SBHL[facility])[address] CO2 [Moles/Vol] 28.9 mmol/L Normal 23.0-30.0 [facility] Comment on above: Performed By: #### L [id number] ####Weather Strip Mechanic: FENG CONSTANTINO ([id number])[facility] (SBHLAB)[address] HCO3 (Bld) [Moles/Vol] 27.5 mmol/L Normal 21.0-30.0 [facility] Comment on above: Performed By: #### L [id number] ####Weather Strip Mechanic: FENG CONSTANTINO ([id number])[facility] (SBHLAB)[address] Hemoglobin (Bld) [Mass/Vol] 11.8 g/dL Low Screen only [facility] Comment on above: Performed By: #### L [id number] ####Weather Strip Mechanic: FENG CONSTANTINO ([id number])[facility] (SBHLAB)[address] OXYGEN (MM HG) IN VENOUS BLOOD 33.5 mm Hg Normal [facility] Comment on above: Performed By: #### L [id number] ####Weather Strip Mechanic: FENG CONSTANTINO ([id number])[facility] [place] (SBHLAB)[address] OXYGEN SATURATION (%) IN VENOUS BLOOD 57.2 % Normal [facility] Comment on above: Performed By: #### L [id number] ####Weather Strip Mechanic: FENG COLEGEORGE ([id number])[facility] [place] (SBHLAB)[address] PCO2, JOHNATHAN 45.6 mm Hg Normal 38.0-56.0 [facility] Comment on above: Performed By: #### L [id number] ####Weather Strip Mechanic: FENG COLEGEORGE ([id number])[facility] [place] (SBHLAB)[address] PH VENOUS 7.398 Normal 7.320-7.420 [facility] Comment on above: Performed By: #### L [id number] ####Weather Strip Mechanic: FENG COLEGEORGE ([id number])[facility]Matt [facility] (SBHLAB)[address] SOURCE OF OXYGEN Nasal Cannula (LPM) Normal [facility] Comment on above: Performed By: #### L [id number] ####Weather Strip Mechanic: FENG COLEGEORGE ([id number])[facility] [place] (SBHLAB)[address] CBC W Auto Differential pane l (Bld)Ordered By: Lakisha Paula on 03-13-2025 Basophils (Bld) [#/Vol] 0.1 10*3/uL 0.0 - 0.2 10*3/uL [facility] Basophils/100 WBC (Bld) 0.6 % 0.0 - 2.0 % [facility] Eosinophils (Bld) [#/Vol] 0.2 10*3/uL 0.0 - 0.5 10*3/uL [facility] Eosinophils/100 WBC (Bld) 2 % 0.0 - 6.0 % [facility] Erythrocyte distribution width (RBC) [Ratio] 21.2 % High 11.5 - 15.0 % [facility] Hematocrit (Bld) [Volume fraction] 28.4 % Low 40.0 - 52.0 % [facility] Hemoglobin (Bld) [Mass/Vol] 8.5 g/dL Low 13.0 - 18.0 g/dL [facility] Immature granulocytes (Bld) [#/Vol] 0 10*3/uL NINF - 0.1 10*3/uL [facility] Immature granulocytes/100 WBC (Bld) 0.5 % 0.0 - 2.0 % [facility] Interpretation and review of laboratory results Abnormal [facility] Lymphocytes (Bld) [#/Vol] 1.2 10*3/uL 1.0 - 4.3 10*3/uL [facility] Lymphocytes/100 WBC (Bld) 15.4 % 15.0 - 45.0 % [facility] MCH (RBC) [Entitic mass] 29.7 pg 26. 0 - 34.0 pg [facility] MCHC (RBC) [Mass/Vol] 29.9 % Low 30.5 - 36.0 % [facility] MCV (RBC) [Entitic vol] 99.3 fL High 77.0 - 99.0 fL [facility] Monocytes (Bld) [#/Vol] 1.4 10*3/uL High 0.0 - 0.9 10*3/uL [facility] Monocytes/100 WBC (Bld) 16.9 % High 5.0 - 13.0 % [facility] Neutrophils (Bld) [#/Vol] 5.2 10*3/uL 1.8 - 7.5 10*3/uL [facility] Neutrophils/100 WBC (Bld) 64.6 % 38.0 - 82.0 % [facility] Nucleated RBC/100 WBC (Bld) [Ratio] 0 % [facility] Platelet mean volume (Bld) [Entitic vol] 9.2 fL 9.0 - 12.7 fL [facility] Platelets (Bld) [#/Vol] 392 10*3/uL 140 - 440 10*3/uL [facility] RBC (Bld) [#/Vol] 2.86 10*6/uL Low 4.40 - 5.9 0 10*6/uL [facility] WBC (Bld) [#/Vol] 8 10*3/uL 3.6 - 10.7 10*3/uL [facility] CBC WITH AUTO DIFFERENTIALon 03-13-2025 Basophils (Bld) [#/Vol] 0.1 10*3/uL Normal 0.0-0.2 [facility] Comment on above: Performed By: #### L [id number] ####Weather Strip Mechanic: FENG CONSTANTINO ([id number])[facility] [place] (SBHLAB)[address] Basophils/100 WBC (Bld) 0.6 % Normal 0.0-2.0 [facility] Comment on above: Performed By: #### L [id number] ####Weather Strip Mechanic: FENG CONSTANTINO ([id number])[facility] [place] (SBHLAB)[address] Eosinophils (Bld) [#/Vol] 0.2 10*3/uL Normal 0.0-0.5 [facility] Comment on above: Performed By: #### L [id number] ####Weather Strip Mechanic: FENG CONSTANTINO ([id number])[facility] [place] (SBHLAB)[address] Eosinophils/100 WBC (Bld) 2.0 % Normal 0.0-6.0 [facility] Comment on above: Performed By: #### L [id number] ####Weather Strip Mechanic: FENG CONSTANTINO ([id number])[facility] [place] (SBHLAB)[address] [place] [address] Erythrocyte distribution width (RBC) [Ratio] 21.2 % High 11.5-15.0 [facility] Comment on above: Performed By: #### L [id number] ####Weather Strip Mechanic: FENG CONSTANTINO ([id number])[facility] [place] (SBHLAB)[address] Hematocrit (Bld) [Volume fraction] 28.4 % Low 40.0-52.0 [facility] Comment on above: Performed By: #### L [id number] ####Weather Strip Mechanic: FENG CONSTANTINO ([id number])[facility] [place] (SBHLAB)[address] Hemoglobin (Bld) [Mass/Vol] 8.5 g/dL Low 13.0-18.0 [facility] Comment on above: Performed By: #### L [id number] ####Weather Strip Mechanic: FENG CONSTANTINO ([id number])[facility] (SBHLAB)[address] IMMATURE GRANS % 0.5 % Normal 0.0-2.0 [facility] Comment on above: Performed By: #### L [id number] ####Weather Strip Mechanic: FENG CONSTANTINO ([id number])[facility] IMMATURE GRANS ABSOLUTE 0.0 10*3/uL Normal <0.1 [facility] Comment on above: Performed By: #### L [id number] ####Weather Strip Mechanic: FENG CONSTANTINO ([id number])[facility] (SBHLAB)[address] Lymphocytes (Bld) [#/Vol] 1.2 10*3/uL Normal 1.0-4.3 [facility] Comment on above: Performed By: #### L [id number] ####Weather Strip Mechanic: FENG CONSTANTINO ([id number])[facility] (SBHLAB)[address] [place] [address] Lymphocytes/100 WBC (Bld) 15.4 % Normal 15.0-45.0 [facility] Comment on above: Performed By: #### L [id number] ####Weather Strip Mechanic: FENG CONSTANTINO ([id number])[facility] (SBHLAB)[address] MCH (RBC) [Entitic mass] 29.7 pg Normal 26.0-34.0 [facility] Comment on above: Performed By: #### L [id number] ####Weather Strip Mechanic: FENG CONSTANTINO ([id number])[facility] (SBHLAB)[address] MCHC 29.9 % Low 30.5-36.0 [facility] Comment on above: Performed By: #### L [id number] ####Weather Strip Mechanic: FENG COLEGEORGE ([id number])[facility] [place] (SBHLAB)[address] MCV (RBC) [Entitic vol] 99.3 fL High 77.0-99.0 [facility] Comment on above: Performed By: #### L [id number] ####Weather Strip Mechanic: FENG VILLAGOMEZALESIA ([id number])[facility] [place] (SBHLAB)[address] Monocytes (Bld) [#/Vol] 1.4 10*3/uL High 0.0-0.9 [facility] Comment on above: Performed By: #### L [id number] ####Weather Strip Mechanic: FENG VILLAGOMEZALESIA ([id number])[facility] [place] (SBHLAB)[address] Monocytes/100 WBC (Bld) 16.9 % High 5.0-13.0 [facility] Comment on above: Performed By: #### L [id number] ####Weather Strip Mechanic: FENG COLEGEORGE ([id number])[facility] [place] (SBHLAB)[address] NEUTROPHILS ABSOLUTE 5.2 10*3/uL Normal 1.8-7.5 [facility] Comment on above: Performed By: #### L [id number] ####Weather Strip Mechanic: FENG VILLAGOMEZALESIA ([id number])[facility] [place] (SBHLAB)[address] Neutrophils/100 WBC (Bld) 64.6 % Normal 38.0-82.0 [facility] Comment on above: Performed By: #### L [id number] ####Weather Strip Mechanic: FENG COLEGEORGE ([id number])[facility] [place] (SBHLAB)[address] NRBC 0.0 /100 WBCs Normal 0.0-2.0 [facility] Comment on above: Performed By: #### L [id number] ####Weather Strip Mechanic: FENG CONSTANTINO ([id number])[facility] [place] (SBHLAB)[address] Platelet mean volume (Bld) [Entitic vol] 9.2 fL Normal 9.0-12.7 [facility] Comment on above: Performed By: #### L [id number] ####Weather Strip Mechanic: FENG CONSTANTINO ([id number])[facility] [place] (SBHLAB)[address] Platelets (Bld) [#/Vol] 392 10*3/uL Normal 140-440 [facility] Comment on above: Performed By: #### L [id number] ####Weather Strip Mechanic: FENG CONSTANTINO ([id number])[facility] [place] (SBHLAB)[address] RBC (Bld) [#/Vol] 2.86 10*6/uL Low 4.40-5.90 [facility] Comment on above: Performed By: #### L [id number] ####Weather Strip Mechanic: FENG CONSTANTINO ([id number])[facility] [place] (SBHLAB)[address] WBC (Bld) [#/Vol] 8.0 10*3/uL Normal 3.6-10.7 [facility] Comment on above: Performed By: #### L [id number] ####Weather Strip Mechanic: FENG CONSTANTINO ([id number])[facility] [place] (SBHLAB)[address] COMPREHENSIVE METABOLIC PANE Victor M 03-13-2025 Albumin [Mass/Vol] 1.5 g/dL Low 3.5-5.0 [facility] Comment on above: Performed By: #### L [id number] ####Weather Strip Mechanic: FENG CONSTANTINO ([id number])[facility] [place] (SBHLAB)[address] [place] [address] [place] ALP [Catalytic activity/Vol] 122 U/L Normal 40-150 [facility] Comment on above: Performed By: #### L [id number] ####Weather Strip Mechanic: FENG COLEGEORGE ([id number])[facility] [place] (SBHLAB)[address] [place] [address] [place] ALT [Catalytic activity/Vol] 7 U/L Normal <40 [facility] Comment on above: Performed By: #### L [id number] ####Weather Strip Mechanic: FENG CONSTANTINO ([id number])[facility] [place] (SBHLAB)[address] Anion gap [Moles/Vol] 6 mmol/L Normal 3-13 [facility] Comment on above: Performed By: #### L [id number] ####Weather Strip Mechanic: FENG CONSTANTINO ([id number])[facility] [place] (SBHLAB)[address] AST [Catalytic activity/Vol] 37 U/L High <34 [facility] Comment on above: Performed By: #### L [id number] ####Weather Strip Mechanic: FENG CONSTANTINO ([id number])[facility] [place] (SBHLAB)[address] Bilirubin [Mass/Vol] 0.5 mg/dL Normal <1.2 [facility] Comment on above: Performed By: #### L [id number] ####Weather Strip Mechanic: FENG CONSTANTINO ([id number])[facility] [place] (SBHLAB)[address] Calcium [Mass/Vol] 7.3 mg/dL Low 8.4-10.2 [facility] Comment on above: Performed By: #### L [id number] ####Weather Strip Mechanic: FENG CONSTANTINO ([id number])[facility] [place] (SBHLAB)[address] [place] [address] [place] Chloride [Moles/Vol] 110 mmol/L High 98-107 [facility] Comment on above: Performed By: #### L [id number] ####Weather Strip Mechanic: FENG CONSTANTINO ([id number])[facility]ENTERMatt [facility]UN[facility] (SBHLAB)[address] CO2 [Moles/Vol] 25 mmol/L Normal 22-29 [facility] Comment on above: Performed By: #### L [id number] ####Weather Strip Mechanic: FENG CONSTANTINO ([id number])[facility] (SBHLAB)[address] Creatinine [Mass/Vol] 3.32 mg/dL High 0.72-1.25 [facility] Comment on above: Performed By: #### L [id number] ####Weather Strip Mechanic: FENG CONSTANTINO ([id number])[facility] (SBHLAB)[address] [place] [address] [place] GLOMERULAR FILTRATION RATE ML/MIN/1.73 SQ M.PREDICTED 20.5 mL/min/1.73m*2 Low >60.0 [facility] Comment on above: Result Comment: Calc ulation based on the Chronic Kidney Disease Epidemiology Collaboration (CKD-EPI) equation refit without adjustment for race Performed By: #### L [id number] ####Weather Strip Mechanic: FENG CONSTANTINO ([id number])[facility] (SBHLAB)[address] Glucose [Mass/Vol] 71 mg/dL Low 74-100 [facility] Comment on above: Performed By: #### L [id number] ####Weather Strip Mechanic: FENG CONSTANTINO ([id number])[facility] (SBHLAB)[address] [place] [address] [place] Potassium [Moles/Vol] 3.5 mmol/L Normal 3.5-5.1 [facility] Comment on above: Result Comment: [facility] potassium values may be up to 0.5 mmol/L lower than serum values. Performed By: #### L [id number] ####Weather Strip Mechanic: FENG CONSTANTINO ([id number])[facility] (SBHLAB)[address] Protein [Mass/Vol] 5.5 g/dL Low 6.4-8.3 [facility] Comment on above: Performed By: #### L [id number] ####Weather Strip Mechanic: FENG CONSTANTINO ([id number])[facility]ENTERMatt [place] (SBHLAB)[address] Sodium [Moles/Vol] 141 mmol/L Normal 136-145 [facility] Comment on above: Performed By: #### L [id number] ####Weather Strip Mechanic: FENG CONSTANTINO ([id number])[facility] (SBHLAB)[address] Urea nitrogen [Mass/Vol] 41 mg/dL High 9-23 [facility] Comment on above: Performed By: #### L [id number] ####Weather Strip Mechanic: FENG DOUGIE ([id number])[facility] (SBHLAB)[address] CHEST WO IV CONTRASTon CT CHEST WO IV CONTRAST Normal [facility] CT Chest WO contraston 03-13 1. [...] MD Electronically Signed Date/Time: 03/13/2025 12:44 PM [facility] Patient Name: JUN SNYDER : 1965 [...] Electronically Signed Date/Time: 03/13/2025 12:44 PM EDT [facility] Radiology Study observation (narrative) [facility] Comprehensive Metabolic Prof ilon 03-13-2025 Bilirubin [Mass/Vol] 0.62 mg/dL Normal 0.00-1.30 [facility] Comment on above: Order Comment: 413.2 Performed By: #### L 500.4050, L100.0100, L300.3900 #### [facility] [address] [place], [address] Comprehensive metabolic 1998 panelon 03-13-2025 Albumin [Mass/Vol] 1.5 g/dL Low 3.5 - 5.0 g/dL [facility] ALP [Catalytic activity/Vol] 122 U/L 40 - 150 U/L [facility] ALT [Catalytic activity/Vol] 7 U/L [facility] U/L [facility] Anion gap [Moles/Vol] 6 mmol/L 3 - 13 mmol/L [facility] AST [Catalytic activity/Vol] 37 U/L High NINF - 34 U/L [facility] Bilirubin [Mass/Vol] 0.5 mg/dL NINF - 1.2 mg/dL [facility] Calcium [Mass/Vol] 7.3 mg/dL Low 8.4 - 10. 2 mg/dL [facility] Chloride [Moles/Vol] 110 mmol/L High 98 - 10 7 mmol/L [facility] CO2 [Moles/Vol] 25 mmol/L 22 - 29 mmol/L [facility] Creatinine [Mass/Vol] 3.32 mg/dL High 0.72 - 1.25 mg/dL [facility] GFR/1.73 sq M.predicted (S/P/Bld) [Vol rate/Area] 20.5 mL/min Low - PINF [facility] Comment on above: Calculation based on the Chronic Kidney Disease Epidemiology Collaboration (CKD-EPI) equation refit without adjustment for race Glucose [Mass/Vol] 71 mg/dL Low 74 - 100 mg/dL [facility] Interpretation and review of laboratory results Abnormal [facility] Potassium [Moles/Vol] 3.5 mmol/L 3.5 - 5.1 mmol/L [facility] Comment on above: Plasma potassium macey ues may be up to 0.5 mmol/L lower than serum values. Protein [Mass/Vol] 5.5 g/dL Low 6.4 - 8.3 g/dL [facility] Sodium [Moles/Vol] 141 mmol/L 136 - 145 mmol/L [facility] Urea nitrogen [Mass/Vol] 41 mg/dL High 9 - 23 mg/d L [facility] ECG 12-LEADon 03-13-2025 ECG 12-LEAD Normal [facility] ED Nursing Noteon 03-13-2025 ED Nursing Note When this RN came back from lunch Pt was already taken to [facility] by Consuelo Day. RN covering my lunch called report to RN at [facility]. Normal [facility] ED Nursing Note Called report to SWEETIE Linder at . Normal [facility] ED Nursing Note Consuelo Johnson at bedside to transport patient to [facility]. Normal [facility] ED Provider Noteon ED Provider Note Normal [facility] HIGH SENSITIVITY TROPONIN, S ERIAL BASELINEon 03-13-2025 TROPONIN HS SERIAL BASELINE 39 ng/L High <=35 [facility] Comment on above: Result Comment: In i ndividuals presenting with symptoms > 2h, a baseline troponin <= 5 ng/L suggests acutecardiac injury is unlikely and further serial testing is generally not indicated. Performed By: #### L [id number] ####Weather Strip Mechanic: FENG CONSTANTINO ([id number])[facility] CINDY ([facility])[address] [place] [address] HIGH SENSITIVITY TROPONIN, S ERIAL, SECOND TESTon 03-13-2025 2H TROPONIN HS (SERIAL 2ND TROPONIN) 44 ng/L High <=35 [facility] Comment on above: Result Comment: 2h t [...] 3rd serial troponin Performed By: #### L [id number], [id number], [id number] ####Weather Strip Mechanic: DOMENICA JARA ([id number])[facility] ([facility])[address] [place] [address] HIGH SENSITIVITY TROPONIN, S ERIAL, THIRD TESTon 03-13-2025 4H TROPONIN HS (SERIAL 3RD TROPONIN) 50 ng/L High <=35 [facility] Comment on above: Result Comment: 4h t [...] valuerequires further evaluation. Performed By: #### L [id number] ####Weather Strip Mechanic: DOMENICA JARA ([id number])[facility] ([facility])[address] [place] [address] Laboratory - Chemistry and C hemistry - challengeon 03-13-2025 TSH Qn 6.88 m[IU]/L High [facility] Laboratory - Chemistry and C hemistry - challengeOrdered By: Miya Ang on 03-13-2025 Base excess Calc (BldV) [Moles/Vol] 2.2 mmol/L -3.0 - 3.0 mmol/L [facility] CO2 (BldV) [Partial pressure] 45.6 mm[Hg] [facility] CO2 [Moles/Vol] 28.9 mmol/L 23.0 - 30.0 mmol/L [facility] HCO3 (Bld) [Moles/Vol] 27.5 mmol/L 21.0 - 30.0 mmol/L [facility] Oxygen (BldV) [Partial pressure] 33.5 mm[Hg] mm Hg [facility] pH (BldV) 7.398 [pH] 7.320 - 7.420 [facility] Laboratory - Coagulationon 0 03-13-2025 PT Coag (Bld) [Time] 17.7 s High 9.0 - 12.0 s [facility] Laboratory - Hematology and Cell countsOrdered By: Miya Ang on 03-13-2025 Hemoglobin (Bld) [Mass/Vol] 11.8 g/dL Low 13.5 - 17.5 g/dl [facility] Laboratory - Microbiology an d Antimicrobial susceptibilityon 03-13-2025 FLUAV RNA EMMANUEL+probe Ql (Resp) Not detected Not Detected [facility] FLUBV RNA EMMANUEL+probe Ql (Resp) Not detected Not Detected [facility] [facility] RNA EMMANUEL+probe Ql (Resp) Not detected Not Detected [facility] SARS-CoV-2 (COVID-19) RNA EMMANUEL+probe Ql (Resp) Not detected Not Detected [facility] alth SARS-CoV-2 (COVID-19) RNA EMMANUEL+probe Ql (Unsp spec) Methodology: real-time, RT-PCR The SARS-CoV-2, Flu A/B, and RSV Combo assay is intended for in vitro diagnostic use under the FDA Emergency Use Authorization (EUA). This test has not been FDA cleared or approved. In compliance with this authorization, please visit www.fda.gov/media/ 189/download or www.fda.gov/media/ 849/download to access the applicable information sheets. [facility] NT PRO BNPon 03-13-2025 NT PRO BNP >53295 High <125 [facility] Comment on above: Performed By: #### L [id number], [id number], [id number] ####Weather Strip Mechanic: DOMENICA JARA ([id number])[facility] ([address] Natriuretic peptide B [Mass/ Vol]on 03-13-2025 Interpretation and review of laboratory results Abnormal [facility] Natriuretic peptide B (Bld) [Mass/Vol] pg/mL High NINF - 125 pg/mL [facility] No Panel Informationon 03-13 4h Troponin HS (Serial 3rd Troponin) 50 ng/L High NINF - 35 ng/L [facility] Comment on above: 4h troponin (3rd tro ponin) samples collected between 1h 40 min and 2h and 20 min of the 2h troponin collection time can be utilized to interpret delta troponins as per [facility] algorithms. Samples collected outside this timeframe need to be interpreted clinically. Rising or falling troponin delta between 2 15 ng/L as compared to 2h troponin value requires further evaluation. Interpretation and review of laboratory results Abnormal [facility] 2h Troponin HS (Serial 2nd Troponin) 44 ng/L High NINF - 35 ng/L [facility] Comment on above: 2h troponin (2nd tro ponin) samples collected between 1h 40 min and 2h and 20 min of the baseline collection time can be utilized to interpret delta troponins as per [facility] algorithms. Samples collected outside this timeframe need to be interpreted clinically. Rising or falling troponin delta between 2 15 ng/L as compared to baseline value requires a 3rd serial troponin Interpretation and review of laboratory results Abnormal [facility] Interpretation and review of laboratory results Abnormal [facility] Troponin HS Serial Baseline 39 ng/L High NINF - 35 ng/L [facility] Comment on above: In individuals prese nting with symptoms > 2h, a baseline troponin <= 5 ng/L suggests acute cardiac injury is unlikely and further serial testing is generally not indicated. [facility] P [place] 0 degrees [facility] VT Interval 0 ms [facility] QRS [place] 66 degrees [facility] QRSD Interval [address] [facility] Interval 372 ms [facility] QTC Interval 520 ms [facility] T Wave [place] 228 degrees [facility] Atrial flutter with predominant 2:1 AV block [...] On 03-13-2025 08:47:27 EDT by Keiry Solares [facility] No Panel InformationOrdered By: Miya Ang on 03-13-2025 Amount Of Oxygen [facility] alth Interpretation and review of laboratory results Abnormal [facility] Source Of Oxygen Nasal Cannula (LPM) [facility] Assessment of oxygenation is best done with an arterial blood gas determination. Reference ranges for pO2, bicarbonate, and base excess are for mixed venous blood. Specimens drawn from a peripheral vein will often have higher values. [facility] Nursing Noteon 03-13-2025 Nursing Note Removed wound vac that patient arrived to 5w from f pictures of all wound taken on rover and saved to chart NSWto DSD applied to sacral wound Normal [facility] PROTHROMBIN TIMEon INR Coag (PPP) [Relative time] 1.7 {INR} High 0.9-1.1 [facility] Comment on above: Result Comment: Vaughn mmended [...] Myocardial Infarction Performed By: #### L [id number] ####Weather Strip Mechanic: FENG CONSTANTINO ([id number])[facility] ([facility])[address] [place] [address] PT Coag (PPP) [Time] 17.7 s High 9.0-12.0 [facility] Comment on above: Performed By: #### L [id number] ####Weather Strip Mechanic: FENG CONSTANTINO ([id number])[facility] ([facility])[address] PT Coag (Bld) [Time]on 03-13 INR Coag (PPP) [Relative time] 1.7 {INR} High 0.9 - 1.1 [facility] Comment on above: Recommended Anticoag ulant Therapy: [...] Interpretation and review of laboratory results Abnormal [facility] SARS-COV-2, FLU A/B, AND RSV COMBOon 03-13-2025 SARS-CoV-2 (COVID-19) RNA EMMANUEL+probe Ql (Unsp spec) Normal [facility] Comment on above: Performed By: #### L [id number] ####Weather Strip Mechanic: FENG CONSTANTINO ([id number])[facility] [place] [address] SARS-CoV-2, Flu A/B, and RSV Comboon 03-13-2025 Interpretation and review of laboratory results Normal [facility] THYROID STIMULATING HORMONEo n 03-13-2025 THYROID STIMULATING HORMONE 6.88 uIU/mL High 0.35-4.94 [facility] Comment on above: Performed By: #### L [id number] ####Weather Strip Mechanic: DOMENICA JARA ([id number])[facility] ([id number] TSH Qnon 03-13-2025 Interpretation and review of laboratory results Abnormal [facility] Vital signsOrdered By: Delicia Ang on 03-13-2025 Oxygen saturation in Venous blood 57.2 % [facility] Vital signson 03-13-2025 Heart rate 117 /min bpm [facility] XR Chest Single viewon 03-13 1. Limited supine study. 2. Cardiomegaly with probable pulmonary venous congestion. 3. Hyperinflated lungs with chronic, ill-defined opacities in both lungs which are most likely areas of fibrosis. No definite lung consolidation. Report Dictated on Electronically Signed By: Bettye Ribera MD Electronically Signed Date/Time: 03/13/2025 9:18 AM [facility] Patient Name: JUN SNYDER : 1965 [...] Biapical pleural thickening is chronic. Bones: Unremarkable [facility] Bettye [...] Electronically Signed Date/Time: 03/13/2025 9:18 AM EDT [facility] Radiology Study [facility]narrative) [facility] Chest Single viewOrdered By: Bettye Ribera on 03-13-2025 [facility] Work Phone: Absolute lymphocyte countOrd ered By: Jayesh Stubbs on 03-12-2025 Lymphocytes Auto (Unsp spec) [#/Vol] 1.12 10*3/uL 0.83-4.51 [facility] Absolute neutrophil countOrd ered By: Jayesh Stubbs on 03-12-2025 Neutrophils (Bld) [#/Vol] 4.3 10*3/uL 2.0-7.7 [facility] Anion gap in Serum or Plasma Ordered By: Jayesh Stubbs on 03-12-2025 Anion gap [Moles/Vol] 13 mmol/L 5-15 [facility] Automated lymphocyte count a s percentage of total leukocytesOrdered By: Jayesh Stubbs on 03-12-2025 Lymphocytes/100 WBC Auto (Unsp spec) 16.9 % Low 19-41 [facility] BUN/creatinine ratioOrdered By: Jayesh Stubbs on 03-12-2025 Urea nitrogen/Creatinine [Mass ratio] 11.8 mg/mg 10-20 [facility] Basophil percentageOrdered B y: Jayesh Stubbs on 03-12-2025 Basophils/100 WBC (Bld) 2.0 % High 0-1 [facility] Bilirubin, totalOrdered By: Jayesh Stubbs on 03-12-2025 Bilirubin [Mass/Vol] 0.62 mg/dL 0.00-1.30 [facility] CBC W/Diff, Automatedon 02-25 Anisocytosis Ql (Bld) 1+ Normal [facility] Comment on above: Order Comment: 413.2 Performed By: #### L 500.4050, L100.0100, L300.3900 #### [facility] [address] [place], [place], [id number] Carbon dioxide, total [Moles /volume] in Central venous bloodOrdered By: Jayesh Stubbs on 03-12-2025 CO2 [Moles/Vol] 27.8 mmol/L 21.0-32.0 [facility] Chloride assayOrdered By: George Dorado on 03-12-2025 Chloride [Moles/Vol] 98 mmol/L 98-108 [facility] Eosinophil percentageOrdered By: Jayesh Stubbs on 03-12-2025 Eosinophils/100 WBC (Bld) 2.3 % 0-5 [facility] Erythrocyte distribution wid th ratioOrdered By: Jayesh Stubbs on 03-12-2025 Erythrocyte distribution width (RBC) [Ratio] 21.6 % High 11.6-14.6 [facility] Erythrocyte distribution wid th standard deviationOrdered By: Jayesh Stubbs on 03-12-2025 Erythrocyte distribution width (RBC) [Ratio] 79.4 fl High 35.1-43.9 [facility] Glomerular filtration rate ( GFR) estimation/1.73 sq m using serum, plasma, or whole bOrdered By: Jayesh Stubbs on 03-12-2025 GFR/1.73 sq M.predicted among non-blacks MDRD (S/P/Bld) [Vol rate/Area] 14 mL/min/{1.73_m2} Low >60 [facility] Comment on above: mL/min/1.73m2 CKD-EP I Creatinine Equation (2020) Hematocrit Auto (Bld) [Volum e fraction]Ordered By: Jayesh Stubbs on 03-12-2025 Hematocrit (Bld) [Volume fraction] 28.7 % Low 40-54 [facility] Hemoglobin measurementOrdere d By: Jayesh Stubbs on 03-12-2025 Hemoglobin (Bld) [Mass/Vol] 8.7 g/dL Low 13.0-16.5 [facility] Immature granulocytes/100 WB C Auto (Bld)Ordered By: Jayesh Stubbs on 03-12-2025 Immature granulocytes/100 WBC (Bld) 0.300 % 0.0-0.9 [facility] Comment on above: IG% - Immature Granu locytes (promyelocytes, myelocytes and metamyelocytes) > 1% indicates that a LEFT SHIFT is Present. International normalized rat io (INR) calculationOrdered By: Jayesh Stubbs on 03-12-2025 INR Coag (Bld) [Relative time] 1.9 {INR} [facility] - Chemistry and C hemistry - challengeOrdered By: Jayesh Stubbs on 03-12-2025 AST [Catalytic activity/Vol] 47 U/L High <38 [facility] - Hematology and Cell countsOrdered By: Jayesh Stubbs on 03-12-2025 Anisocytosis Ql (Bld) 1+ [facility] MCV (mean corpuscular volume ) determinationOrdered By: Jayesh Stubbs on 03-12-2025 MCV (RBC) [Entitic vol] 100.3 fL High 80-94 [facility] Mean corpuscular hemoglobin (MCH) determinationOrdered By: Jayesh Stubbs on 03-12-2025 MCH (RBC) [Entitic mass] 30.4 pg 27.0-32.0 [facility] Mean corpuscular hemoglobin concentration (MCHC) determinationOrdered By: Jayesh Stubbs on 03-12-2025 MCHC (RBC) [Mass/Vol] 30.3 g/dL Low 32-36 [facility] Mean platelet volume determi nationOrdered By: Jayesh Stubbs on 03-12-2025 Platelet mean volume (Bld) [Entitic vol] 9.5 fL 6.2-12.0 [facility] Monocyte percentageOrdered B y: Jayesh Stubbs on 03-12-2025 Monocytes/100 WBC (Bld) 14.2 % High 0-10 [facility] Neutrophil percentageOrdered By: Jayesh Stubbs on 03-12-2025 Neutrophils/100 WBC (Bld) 64.3 % 47-70 [facility] Nucleated red blood cell per centageOrdered By: Jayesh Stubbs on 03-12-2025 Nucleated RBC/100 WBC (Bld) [Ratio] 0.3 % 0-5 [facility] Platelet countOrdered By: George Dorado on 03-12-2025 Platelets (Bld) [#/Vol] 404 10*3/uL 150-450 [facility] Potassium measurement (mass/ volume)Ordered By: Jayesh Stubbs on 03-12-2025 Potassium (Unsp spec) [Mass/Vol] 4.1 mmol/L 3.3-5.1 [facility] Prothrombin Time w/INRon INR Coag (PPP) [Relative time] 1.9 {INR} Normal [facility] Comment on above: Order Comment: 413.2 Performed By: #### L 500.4050, L100.0100, L300.3900 #### [facility] [address] [place], [address] PT Coag (PPP) [Time] 22.4 s High 11.7-14.9 [facility] Comment on above: Order Comment: 413.2 Performed By: #### L 500.4050, L100.0100, L300.3900 #### [facility] [address] [place], [address] Prothrombin timeOrdered By: Jayesh Stubbs on 03-12-2025 PT Coag (PPP) [Time] 22.4 s High 11.7-14.9 [facility] RBC Auto (Bld) [#/Vol]Ordere d By: Jayesh Stubbs on 03-12-2025 RBC (Bld) [#/Vol] 2.86 10*6/uL Low 4.6-6.[address] [facility] Serum creatinine measurement (mass/volume)Ordered By: Jayesh Stubbs on 03-12-2025 Creatinine [Mass/Vol] 4.67 mg/dL High 0.70-1.20 [facility] Serum globulin measurementOr dered By: Jayesh Stubbs on 03-12-2025 Globulin (S) [Mass/Vol] 4.1 g/dL 2.2-4.2 [facility] Serum glucose measurement (m ass/volume)Ordered By: Jayesh Stubbs on 03-12-2025 Glucose [Mass/Vol] 102 mg/dL High 70-[address] [facility] Serum or plasma alanine mayorga otransferase (ALT) measurementOrdered By: Jayesh Stubbs on 03-12-2025 ALT [Catalytic activity/Vol] 20 U/L <47 [facility] Serum or plasma albumin audrey urement (mass/volume)Ordered By: Jayesh Stubbs on 03-12-2025 Albumin [Mass/Vol] 3.0 g/dL Low 3.5-5.[address] [facility] Serum or plasma albumin/glob ulin mass ratioOrdered By: Jayesh Stubbs on 03-12-2025 Albumin/Globulin [Mass ratio] 0.7 {ratio} Low 0.9-2.4 [facility] Serum or plasma alkaline jacob sphatase measurementOrdered By: Jayesh Stubbs on 03-12-2025 ALP [Catalytic activity/Vol] 171 U/L High 40-129 [facility] Serum or plasma calcium audrey urement (mass/volume)Ordered By: Jayesh Stubbs on 03-12-2025 Calcium [Mass/Vol] 9.9 mg/dL 7.6-11.[address] [facility] Serum or plasma urea nitroge n measurement (mass/volume)Ordered By: Jayesh Stubbs on 03-12-2025 Urea nitrogen [Mass/Vol] 55 mg/dL High 4-19 [facility] Sodium levelOrdered By: George Stubbs on 03-12-2025 Sodium [Moles/Vol] 139 mmol/L 133-[address] [facility] Total proteinOrdered By: Sonia Stubbs on 03-12-2025 Protein [Mass/Vol] 7.1 g/dL 5.9-8.[address] [facility] White blood cell (WBC) count Ordered By: Jayesh Stubbs on 03-12-2025 WBC (Bld) [#/Vol] 6.6 10*3/uL 4.4-11.[address] [facility] Potassiumon 03-09-2025 Potassium [Moles/Vol] 4.1 mmol/L Normal 3.3-5.1 [facility] Comment on above: Order Comment: 413-2 Performed By: #### L [id number] #### [facility] [address] [place], [address] Potassium measurement (mass/ volume)Ordered By: Jayesh Stubbs on 03-09-2025 Potassium (Unsp spec) [Mass/Vol] 4.1 mmol/L 3.3-5.1 [facility] 36on 03-08-2025 36 2nd attempt called and spoke to the Alyssa the Nurse for the patient at the facility he lives at. She states Sabino is the person who schedules the appointments and she is on vacation and wont be back till next Wednesday. I will try again next wednesday Progress Noteon 03-08-2025 Progress Note Normal [facility] 36on 03-06-2025 36 Pt DC to [facility] [id number] 03-05-2025 [id number] Auth is now pending with [facility] for [facility]. Auth ID: [id number] . The insurance needs PT and OT notes- as PT note yesterday incomplete , they are both requested . [id number] Discharge med list transmitted to [facility] via [facility] per [facility] request. [id number] APTTon 03-05-2025 aPTT Coag (Bld) [Time] 37.6 s High 20.0-30.5 [facility] Comment on above: Result Comment: ARPAN Kaplan COMMENTS:NOTE: The therapeutic time for Heparin anticoagulation, based on Xa activity inhibition, is an APTT of 46-80 seconds. Performed By: #### L [id number], [id number] ####Weather Strip Mechanic: DOMENICA JARA ([id number])[facility] ([address] BASIC METABOLIC PANELon Anion gap [Moles/Vol] 8 mmol/L Normal 3-13 [facility] Comment on above: Performed By: #### L AB15 ####Weather Strip Mechanic: DOMENICA JARA ([id number])[facility] ([facility])[address] [place] [address] Calcium [Mass/Vol] 9.7 mg/dL Normal 8.4-10.2 [facility] Comment on above: Performed By: #### L AB15 ####Weather Strip Mechanic: DOMENICA JARA ([id number])[facility] ([facility] [place] [address] Chloride [Moles/Vol] 102 mmol/L Normal 98-107 [facility] Comment on above: Performed By: #### L AB15 ####Weather Strip Mechanic: DOMENICA JARA ([id number])[facility] ([facility] [place] [address] CO2 [Moles/Vol] 26 mmol/L Normal 22-29 [facility] Comment on above: Performed By: #### L AB15 ####Weather Strip Mechanic: DOMENICA JARA ([id number])[facility] ([facility])[address] [place] [address] Creatinine [Mass/Vol] 3.10 mg/dL High 0.72-1.25 [facility] Comment on above: Performed By: #### L AB15 ####Weather Strip Mechanic: DOMENICA JARA ([id number])[facility] ([facility])[address] [place] [address] [place] GLOMERULAR FILTRATION RATE ML/MIN/1.73 SQ M.PREDICTED 22.3 mL/min/1.73m*2 Low >60.0 [facility] Comment on above: Result Comment: Calc ulation based on the Chronic Kidney Disease Epidemiology Collaboration (CKD-EPI) equation refit without adjustment for race Performed By: #### L AB15 ####Weather Strip Mechanic: DOMENICA JARA ([id number])[facility] ([facility])[address] [place] [address] [place] Glucose [Mass/Vol] 68 mg/dL Low 74-100 [facility] Comment on above: Performed By: #### L AB15 ####Weather Strip Mechanic: DOMENICA JARA ([id number])[facility] ([facility])[address] [place] [address] [place] Potassium [Moles/Vol] 5.9 mmol/L High 3.5-5.1 [facility] Comment on above: Result Comment: [facility] potassium values may be up to 0.5 mmol/L lower than serum values. Performed By: #### L AB15 ####Weather Strip Mechanic: DOMENICA JARA ([id number])[facility] ([facility] [place] [address] Sodium [Moles/Vol] 136 mmol/L Normal 136-145 [facility] Comment on above: Performed By: #### L AB15 ####Weather Strip Mechanic: DOMENICA JARA ([id number])[facility] ([facility])[address] [place] [address] Urea nitrogen [Mass/Vol] 27 mg/dL High 9-23 [facility] Comment on above: Performed By: #### L AB15 ####Weather Strip Mechanic: DOMENICA JARA ([id number])[facility] ([facility])[address] [place] [address] Anion gap [Moles/Vol] 9 mmol/L Normal 3-13 [facility] Comment on above: Performed By: #### L AB15 ####Weather Strip Mechanic: DOMENICA JARA ([id number])[facility] ([facility])[address] [place] [address] Calcium [Mass/Vol] 9.7 mg/dL Normal 8.4-10.2 [facility] Comment on above: Performed By: #### L AB15 ####Weather Strip Mechanic: DOMENICA JARA ([id number])[facility] ([facility])[address] [place] [address] Chloride [Moles/Vol] 102 mmol/L Normal 98-107 [facility] Comment on above: Performed By: #### L AB15 ####Weather Strip Mechanic: DOMENICA JARA ([id number])[facility] ([facility])[address] [place] [address] CO2 [Moles/Vol] 25 mmol/L Normal 22-29 [facility] Comment on above: Performed By: #### L AB15 ####Weather Strip Mechanic: DOMENICA JARA ([id number])[facility] ([facility])[address] [place] [address] Creatinine [Mass/Vol] 3.03 mg/dL High 0.72-1.25 [facility] Comment on above: Performed By: #### L AB15 ####Weather Strip Mechanic: DOMENICA JARA ([id number])[facility])[address] [place] [address] [place] GLOMERULAR FILTRATION RATE ML/MIN/1.73 SQ M.PREDICTED 22.9 mL/min/1.73m*2 Low >60.0 [facility] Comment on above: Result Comment: Calc ulation based on the Chronic Kidney Disease Epidemiology Collaboration (CKD-EPI) equation refit without adjustment for race Performed By: #### L AB15 ####Weather Strip Mechanic: DOMENICA JARA ([id number])[facility] ([facility])[address] [place] [address] [place] Glucose [Mass/Vol] 77 mg/dL Normal 74-100 [facility] Comment on above: Performed By: #### L AB15 ####Weather Strip Mechanic: DOMENICA JARA ([id number])[facility])[address] [place] [address] [place] Potassium [Moles/Vol] 6.6 mmol/L Critically high 3.5-5.1 [facility] Comment on above: Result Comment: [facility] potassium values may be up to 0.5 mmol/L lower than serum values. Performed By: #### L AB15 ####Weather Strip Mechanic: DOMENICA JARA ([id number])[facility] ([facility])[address] [place] [address] [place] Sodium [Moles/Vol] 136 mmol/L Normal 136-145 [facility] Comment on above: Performed By: #### L AB15 ####Weather Strip Mechanic: DOMENICA JARA ([id number])[facility])[address] [place] [address] [place] Urea nitrogen [Mass/Vol] 26 mg/dL High 9-23 [facility] Comment on above: Performed By: #### L AB15 ####Weather Strip Mechanic: DOMENICA JARA ([id number])[facility] ([facility])[address] [place] [address] Basic metabolic 1998 panelon 03-05-2025 Anion gap [Moles/Vol] 8 mmol/L 3 - 13 mmol/L [facility] Calcium [Mass/Vol] 9.7 mg/dL 8.4 - 10. 2 mg/dL [facility] Chloride [Moles/Vol] 102 mmol/L 98 - 10 7 mmol/L [facility] CO2 [Moles/Vol] 26 mmol/L 22 - 29 mmol/L [facility] Creatinine [Mass/Vol] 3.1 mg/dL High 0.72 - 1.25 mg/dL [facility] GFR/1.73 sq M.predicted (S/P/Bld) [Vol rate/Area] 22.3 mL/min Low - PINF [facility] Glucose [Mass/Vol] 68 mg/dL Low 74 - 100 mg/dL [facility] Interpretation and review of laboratory results Abnormal [facility] Potassium [Moles/Vol] 5.9 mmol/L High 3.5 - 5.1 mmol/L [facility] Sodium [Moles/Vol] 136 mmol/L 136 - 145 mmol/L [facility] Urea nitrogen [Mass/Vol] 27 mg/dL High 9 - 23 mg/d L [facility] Anion gap [Moles/Vol] 9 mmol/L 3 - 13 mmol/L [facility] Calcium [Mass/Vol] 9.7 mg/dL 8.4 - 10. 2 mg/dL [facility] Chloride [Moles/Vol] 102 mmol/L 98 - 10 7 mmol/L [facility] CO2 [Moles/Vol] 25 mmol/L 22 - 29 mmol/L [facility] Creatinine [Mass/Vol] 3.03 mg/dL High 0.72 - 1.25 mg/dL [facility] GFR/1.73 sq M.predicted (S/P/Bld) [Vol rate/Area] 22.9 mL/min Low - PINF [facility] Glucose [Mass/Vol] 77 mg/dL 74 - 100 mg/dL [facility] Interpretation and review of laboratory results Abnormal [facility] Potassium [Moles/Vol] 6.6 mmol/L Critically high 3.5 - 5.1 mmol/L [facility] Sodium [Moles/Vol] 136 mmol/L 136 - 145 mmol/L [facility] Urea nitrogen [Mass/Vol] 26 mg/dL High 9 - 23 mg/d L [facility] CBC (HEMOGRAM)on 03-05-2025 Erythrocyte distribution width (RBC) [Ratio] 21.6 % High 11.5-15.0 [facility] Comment on above: Performed By: #### L [id number] ####Weather Strip Mechanic: DOMENICA JARA ([phone])[facility])[address] [place] [address] Hematocrit (Bld) [Volume fraction] 25.7 % Low 40.0-52.0 [facility] Comment on above: Performed By: #### L AB294 ####Weather Strip Mechanic: DOMENICA JARA ([phone])[address] Hemoglobin (Bld) [Mass/Vol] 7.7 g/dL Low 13.0-18.0 [facility] Comment on above: Performed By: #### L AB294 ####Weather Strip Mechanic: DOMENICA JARA ([phone])[address] MCH (RBC) [Entitic mass] 29.7 pg Normal 26.0-34.0 [facility] Comment on above: Performed By: #### L [id number] ####Weather Strip Mechanic: DOMENICA JARA ([phone])[address] MCHC 30.0 % Low 30.5-36.0 [facility] Comment on above: Performed By: #### L AB294 ####Weather Strip Mechanic: DOMENICA JARA ([id number])[address] MCV (RBC) [Entitic vol] 99.2 fL High 77.0-99.0 [facility] Comment on above: Performed By: #### L AB294 ####Weather Strip Mechanic: DOMENICA JARA ([phone])[facility] ([facility])[address] [place] [address] Platelet mean volume (Bld) [Entitic vol] 9.1 fL Normal 9.0-12.7 [facility] Comment on above: Performed By: #### L AB294 ####Weather Strip Mechanic: DOMENICA JARA ([phone])[facility])[address] [place] [address] Platelets (Bld) [#/Vol] 303 10*3/uL Normal 140-440 [facility] Comment on above: Performed By: #### L AB294 ####Weather Strip Mechanic: DOMENICA JARA ([id number])[facility])[address] [place] [address] RBC (Bld) [#/Vol] 2.59 10*6/uL Low 4.40-5.90 [facility] Comment on above: Performed By: #### L AB294 ####Weather Strip Mechanic: DOMENICA JARA ([id number])[facility] ([facility])[address] [place] [address] WBC (Bld) [#/Vol] 9.1 10*3/uL Normal 3.6-10.7 [facility] Comment on above: Performed By: #### L AB294 ####Weather Strip Mechanic: DOMENICA JARA ([phone])[facility])[address] [place] [address] CBC W/Diff, Automatedon 06-0 Absolute Neut Normal 2.0-7.7 [facility] Comment on above: Order Comment: 412.2 Result Comment: [facility] Performed By: #### L 100.0100, L500.4050, L300.3900 #### [facility] [address] [place], [place], [address] HCT Normal 40-54 [facility] Comment on above: Order Comment: 412.2 Result Comment: [facility] Performed By: #### L 100.0100, L500.4050, [id number] #### [facility] [address] [place], [address] HGB Normal 13.0-16.5 [facility] Comment on above: Order Comment: 412.2 Result Comment: [facility] Performed By: #### L 100.0100, L500.4050, [id number] #### [facility] [address] [place], [address] MCH Normal 27.0-32.0 [facility] Comment on above: Order Comment: 412.2 Result Comment: [facility] Performed By: #### L 100.0100, L500.4050, [id number] #### [facility] [address] [place], [address] MCHC Normal 32-36 [facility] Comment on above: Order Comment: 412.2 Result Comment: [facility] Performed By: #### L 100.0100, L500.4050, [id number] #### [facility] [address] [place], [address] MCV Normal 80-94 [facility] Comment on above: Order Comment: 412.2 Result Comment: [facility] Performed By: #### L 100.0100, L500.4050, [id number] #### [facility] [address] [place], [address] NEUT% Normal 47-70 [facility] Comment on above: Order Comment: 412.2 Result Comment: [facility] Performed By: #### L 100.0100, L500.4050, [id number] #### [facility] [address] [place], [address] PLT Normal 150-450 [facility] Comment on above: Order Comment: 412.2 Result Comment: [facility] Performed By: #### L 100.0100, L500.4050, [id number] #### [facility] [address] [place], [address] RBC Normal 4.6-6.2 [facility] Comment on above: Order Comment: 412.2 Result Comment: [facility] Performed By: #### L 100.0100, L500.4050, [id number] #### [facility] [address] [place], [address] RDW CV Normal 11.6-14.6 [facility] Comment on above: Order Comment: 412.2 Result Comment: [facility] AT [facility] Performed By: #### L 100.0100, L500.4050, [id number] #### [facility] [address] [place], [address] RDW SD Normal 35.1-43.9 [facility] Comment on above: Order Comment: 412.2 Result Comment: [facility] AT [facility] Performed By: #### L 100.0100, L500.4050, [id number] #### [facility] [address] [place], [address] WBC Normal 4.4-11.0 [facility] Comment on above: Order Comment: 412.2 Result Comment: [facility] Performed By: #### L 100.0100, L500.4050, L300.3900 #### [facility] [address] [place], [address] CBC panel Auto (Bld)on 03-05 Erythrocyte distribution width (RBC) [Ratio] 21.6 % High 11.5 - 15.0 % [facility] Hematocrit (Bld) [Volume fraction] 25.7 % Low 40.0 - 52.0 % [facility] Hemoglobin (Bld) [Mass/Vol] 7.7 g/dL Low 13.0 - 18.0 g/dL [facility] Interpretation and review of laboratory results Abnormal [facility] MCH (RBC) [Entitic mass] 29.7 pg 26. 0 - 34.0 pg [facility] MCHC (RBC) [Mass/Vol] 30 % Low 30.5 - 36.0 % [facility] MCV (RBC) [Entitic vol] 99.2 fL High 77.0 - 99.0 fL [facility] Platelet mean volume (Bld) [Entitic vol] 9.1 fL 9.0 - 12.7 fL [facility] Platelets (Bld) [#/Vol] 303 10*3/uL 140 - 440 10*3/uL [facility] RBC (Bld) [#/Vol] 2.59 10*6/uL Low 4.40 - 5.9 0 10*6/uL [facility] WBC (Bld) [#/Vol] 9.1 10*3/uL 3.6 - 10.7 10*3/uL [facility] Comprehensive Metabolic Prof ilon 03-05-2025 ALB Normal 3.5-5.0 [facility] Comment on above: Order Comment: 412.2 Result Comment: [facility] Performed By: #### L 100.0100, L500.4050, L300.3900 #### [facility] [address] [place], [address] ALK PHOS Normal 40-129 [facility] Comment on above: Order Comment: 412.2 Result Comment: [facility] Performed By: #### L 100.0100, L500.4050, L300.3900 #### [facility] [address] [place], [address] ALT Normal <=46 [facility] Comment on above: Order Comment: 412.2 Result Comment: [facility] Performed By: #### L 100.0100, L500.4050, L300.3900 #### [facility] [address] [place], [address] AST Normal <=37 [facility] Comment on above: Order Comment: 412.2 Result Comment: [facility] Performed By: #### L 100.0100, L500.4050, [id number] #### [facility] [address] [place], [address] BUN Normal 4-19 [facility] Comment on above: Order Comment: 412.2 Result Comment: [facility] Performed By: #### L 100.0100, L500.4050, [id number] #### [facility] [address] [place], [address] BUN/CRE Normal 10-20 [facility] Comment on above: Order Comment: 412.2 Result Comment: [facility] Performed By: #### L 100.0100, L500.4050, [id number] #### [facility] [address] [place], [address] Calcium Normal 7.6-11.0 [facility] Comment on above: Order Comment: 412.2 Result Comment: [facility] Performed By: #### L 100.0100, L500.4050, L300.3900 #### [facility] [address] [place], [address] CL Normal 98-108 [facility] Comment on above: Order Comment: 412.2 Result Comment: [facility] Performed By: #### L 100.0100, L500.4050, [id number] #### [facility] [address] [place], [address] CO2 Normal 21.0-32.0 [facility] Comment on above: Order Comment: 412.2 Result Comment: [facility] Performed By: #### L 100.0100, L500.4050, L300.3900 #### [facility] [address] [place], [address] CREAT,SERUM Normal 0.70-1.20 [facility] Comment on above: Order Comment: 412.2 Result Comment: [facility] Performed By: #### L 100.0100, L500.4050, L300.3900 #### [facility] [address] [place], [address] eGFR Normal >60 [facility] Comment on above: Order Comment: 412.2 Result Comment: [facility] Performed By: #### L 100.0100, L500.4050, [id number] #### [facility] [address] [place], [address] GAP Normal 5-15 [facility] Comment on above: Order Comment: 412.2 Result Comment: [facility] Performed By: #### L 100.0100, L500.4050, [id number] #### [facility] [address] [place], [address] GLU Normal 70-99 [facility] Comment on above: Order Comment: 412.2 Result Comment: [facility] Performed By: #### L 100.0100, L500.4050, [id number] #### [facility] [address] [place], [address] Potassium Normal 3.3-5.1 [facility] Comment on above: Order Comment: 412.2 Result Comment: [facility] Performed By: #### L 100.0100, L500.4050, L300.3900 #### [facility] [address] [place], [address] T BILI Normal 0.00-1.30 [facility] Comment on above: Order Comment: 412.2 Result Comment: [facility] Performed By: #### L 100.0100, L500.4050, [id number] #### [facility] [address] [place], [address] T PROT Normal 5.9-8.4 [facility] Comment on above: Order Comment: 412.2 Result Comment: [facility] Performed By: #### L 100.0100, L500.4050, L300.3900 #### [facility] [address] [place], [address] Comprehensive Metabolic Profil Normal 133-145 [facility] Comment on above: Order Comment: 412.2 Result Comment: [facility] Performed By: #### L 100.0100, L500.4050, L300.3900 #### [facility] [address] [place], [address] Laboratory - Chemistry and C hemistry - challengeon 03-05-2025 Glucose [Mass/Vol] 142 mg/dL High 70 - 100 mg/dL [facility] Glucose [Mass/Vol] 83 mg/dL 70 - 100 mg/dL [facility] Laboratory - Coagulationon 0 03-05-2025 PT Coag (Bld) [Time] 18.6 s High 9.0 - 12.0 s [facility] No Panel Informationon 03-05 Interpretation and review of laboratory results Abnormal [facility] Interpretation and review of laboratory results Normal [facility] Interpretation and review of laboratory results Abnormal [facility] PROTHROMBIN TIMEon INR Coag (PPP) [Relative time] 1.8 {INR} High 0.9-1.1 [facility] Comment on above: Result Comment: Vaughn [...] Myocardial Infarction Performed By: #### L AB325, [id number] ####Weather Strip Mechanic: DOMENICA JARA ([phone])[facility] ([address] PT Coag (PPP) [Time] 18.6 s High 9.0-12.0 [facility] Comment on above: Performed By: #### L AB325, [id number] ####Weather Strip Mechanic: DOMENICA JARA ([phone])[facility] ([address] PT Coag (Bld) [Time]on 03-05 INR Coag (PPP) [Relative time] 1.8 {INR} High 0.9 - 1.1 [facility] Progress Noteon 03-05-2025 Progress Note Normal [facility] Progress Note Normal [facility] Progress Note Normal [facility] Progress Note Normal [facility] Progress Note Normal [facility] Progress Note Normal [facility] Prothrombin Time w/INRon INR Normal [facility] Comment on above: Order Comment: 412.2 Result Comment: [facility] Performed By: #### L 100.0100, L500.4050, L300.3900 #### [facility] [address] [place], [address] PROTIME Normal 11.7-14.9 [facility] Comment on above: Order Comment: 412.2 Result Comment: [facility] Performed By: #### L 100.0100, L500.4050, L300.3900 #### [facility] [address] [place], [address] aPTT Coag (Bld) [Time]on aPTT Coag (PPP) [Time] 37.6 s High 20.0 - 30.5 s [facility] 30on 03-04-2025 30 Normal [facility] [id number] 03-04-2025 [id number] Normal [facility] APTTon 03-04-2025 aPTT Coag (Bld) [Time] 52.2 s High 20.0-30.5 [facility] Comment on above: Result Comment: ORDE R COMMENTS:NOTE: The therapeutic time for Heparin anticoagulation, based on Xa activity inhibition, is an APTT of 46-80 seconds. Performed By: #### L AB325, [id number] ####Weather Strip Mechanic: DOMENICA JARA ([phone])[facility] ([facility])[address] [place] [address] BASIC METABOLIC PANELon 06-0 Anion gap [Moles/Vol] 11 mmol/L Normal 3-13 [facility] Comment on above: Performed By: #### L AB15 ####Weather Strip Mechanic: DOMENICA JARA ([phone])[facility] ([facility])[address] [place] [address] Calcium [Mass/Vol] 9.4 mg/dL Normal 8.4-10.2 [facility] Comment on above: Performed By: #### L AB15 ####Weather Strip Mechanic: DOMENICA JARA ([phone])[facility] ([facility])[address] [place] [address] Chloride [Moles/Vol] 103 mmol/L Normal 98-107 [facility] Comment on above: Performed By: #### L AB15 ####Weather Strip Mechanic: DOMENICA JARA ([phone])[facility] [place] [address] CO2 [Moles/Vol] 27 mmol/L Normal 22-29 [facility] Comment on above: Performed By: #### L AB15 ####Weather Strip Mechanic: DOMENICA JARA ([phone])[facility] ([facility])[address] [place] [address] Creatinine [Mass/Vol] 2.41 mg/dL High 0.72-1.25 [facility] Comment on above: Performed By: #### L AB15 ####Weather Strip Mechanic: DOMENICA JARA ([phone])[facility] ([facility])[address] [place] [address] [place] GLOMERULAR FILTRATION RATE ML/MIN/1.73 SQ M.PREDICTED 30.2 mL/min/1.73m*2 Low >60.0 [facility] Comment on above: Result Comment: Calc ulation based on the Chronic Kidney Disease Epidemiology Collaboration (CKD-EPI) equation refit without adjustment for race Performed By: #### L AB15 ####Weather Strip Mechanic: DOMENICA JARA ([phone])[facility] ([facility])[address] [place] [address] Glucose [Mass/Vol] 99 mg/dL Normal 74-100 [facility] Comment on above: Performed By: #### L AB15 ####Weather Strip Mechanic: DOMENICA JARA ([phone])[facility] ([facility])[address] [place] [address] Potassium [Moles/Vol] 5.1 mmol/L Normal 3.5-5.1 [facility] Comment on above: Result Comment: [facility] potassium values may be up to 0.5 mmol/L lower than serum values. Performed By: #### L AB15 ####Weather Strip Mechanic: DOMENICA JARA ([phone])[facility] ([facility])[address] [place] [address] Sodium [Moles/Vol] 141 mmol/L Normal 136-145 [facility] Comment on above: Performed By: #### L AB15 ####Weather Strip Mechanic: DOMENICA JARA ([phone])[facility] ([facility])[address] [place] [address] Urea nitrogen [Mass/Vol] 18 mg/dL Normal 9-23 [facility] Comment on above: Performed By: #### L AB15 ####Weather Strip Mechanic: DOMENICA JARA ([phone])[facility] ([facility])[address] [place] [address] Basic metabolic 1998 panelon 03-04-2025 Anion gap [Moles/Vol] 11 mmol/L 3 - 13 mmol/L [facility] Calcium [Mass/Vol] 9.4 mg/dL 8.4 - 10. 2 mg/dL [facility] Chloride [Moles/Vol] 103 mmol/L 98 - 10 7 mmol/L [facility] CO2 [Moles/Vol] 27 mmol/L 22 - 29 mmol/L [facility] Creatinine [Mass/Vol] 2.41 mg/dL High 0.72 - 1.25 mg/dL [facility] GFR/1.73 sq M.predicted (S/P/Bld) [Vol rate/Area] 30.2 mL/min Low - PINF [facility] Glucose [Mass/Vol] 99 mg/dL 74 - 100 mg/dL [facility] Interpretation and review of laboratory results Abnormal [facility] Potassium [Moles/Vol] 5.1 mmol/L 3.5 - 5.1 mmol/L [facility] Sodium [Moles/Vol] 141 mmol/L 136 - 145 mmol/L [facility] Urea nitrogen [Mass/Vol] 18 mg/dL 9 - 23 mg/d L [facility] CBC (HEMOGRAM)on 03-04-2025 Erythrocyte distribution width (RBC) [Ratio] 21.4 % High 11.5-15.0 [facility] Comment on above: Performed By: #### L [id number] ####Weather Strip Mechanic: DOMENICA JARA ([phone])[address] Hematocrit (Bld) [Volume fraction] 25.9 % Low 40.0-52.0 [facility] Comment on above: Performed By: #### L [id number] ####Weather Strip Mechanic: DOMENICA JARA ([phone])[address] Hemoglobin (Bld) [Mass/Vol] 7.7 g/dL Low 13.0-18.0 [facility] Comment on above: Performed By: #### L [id number] ####Weather Strip Mechanic: DOMENICA JARA ([phone])[facility])[address] [place] [address] MCH (RBC) [Entitic mass] 29.3 pg Normal 26.0-34.0 [facility] Comment on above: Performed By: #### L [id number] ####Weather Strip Mechanic: DOMENICA JARA ([phone])[address] MCHC 29.7 % Low 30.5-36.0 [facility] Comment on above: Performed By: #### L AB294 ####Weather Strip Mechanic: DOMENICA JARA ([phone])[facility] ([facility])[address] [place] [address] MCV (RBC) [Entitic vol] 98.5 fL Normal 77.0-99.0 [facility] Comment on above: Performed By: #### L [id number] ####Weather Strip Mechanic: DOMENICA JARA ([id number])[facility])[address] [place] [address] Platelet mean volume (Bld) [Entitic vol] 9.3 fL Normal 9.0-12.7 [facility] Comment on above: Performed By: #### L [id number] ####Weather Strip Mechanic: DOMENICA JARA ([phone])[address] Platelets (Bld) [#/Vol] 324 10*3/uL Normal 140-440 [facility] Comment on above: Performed By: #### L [id number] ####Weather Strip Mechanic: DOMENICA JARA ([id number])[facility])[address] [place] [address] RBC (Bld) [#/Vol] 2.63 10*6/uL Low 4.40-5.90 [facility] Comment on above: Performed By: #### L [id number] ####Weather Strip Mechanic: DOMENICA JARA ([phone])[address] WBC (Bld) [#/Vol] 7.7 10*3/uL Normal 3.6-10.7 [facility] Comment on above: Performed By: #### L [id number] ####Weather Strip Mechanic: DOMENICA JARA ([id number])[facility])[address] [place] [address] CBC panel Auto (Bld)on 03-04 Erythrocyte distribution width (RBC) [Ratio] 21.4 % High 11.5 - 15.0 % [facility] Hematocrit (Bld) [Volume fraction] 25.9 % Low 40.0 - 52.0 % [facility] Hemoglobin (Bld) [Mass/Vol] 7.7 g/dL Low 13.0 - 18.0 g/dL [facility] Interpretation and review of laboratory results Abnormal [facility] MCH (RBC) [Entitic mass] 29.3 pg 26. 0 - 34.0 pg [facility] MCHC (RBC) [Mass/Vol] 29.7 % Low 30.5 - 36.0 % [facility] MCV (RBC) [Entitic vol] 98.5 fL 77.0 - 99.0 fL [facility] Platelet mean volume (Bld) [Entitic vol] 9.3 fL 9.0 - 12.7 fL [facility] Platelets (Bld) [#/Vol] 324 10*3/uL 140 - 440 10*3/uL [facility] RBC (Bld) [#/Vol] 2.63 10*6/uL Low 4.40 - 5.9 0 10*6/uL [facility] WBC (Bld) [#/Vol] 7.7 10*3/uL 3.6 - 10.7 10*3/uL [facility] Laboratory - Coagulationon 0 03-04-2025 PT Coag (Bld) [Time] 16.6 s High 9.0 - 12.0 s [facility] PT Coag (Bld) [Time] 15.5 s High 9.0 - 12.0 s [facility] No Panel Informationon 03-04 Interpretation and review of laboratory results Abnormal [facility] PROTHROMBIN TIMEon INR Coag (PPP) [Relative time] 1.6 {INR} High 0.9-1.1 [facility] Comment on above: Result Comment: Vaughn mmended [...] Myocardial Infarction Performed By: #### L AB320 ####Weather Strip Mechanic: DOMENICA JARA ([phone])[facility] ([facility])[address] [place] [address] PT Coag (PPP) [Time] 16.6 s High 9.0-12.0 [facility] Comment on above: Performed By: #### L AB320 ####Weather Strip Mechanic: DOMENICA JARA ([phone])[facility])[address] [place] [address] INR Coag (PPP) [Relative time] 1.5 {INR} High 0.9-1.1 [facility] Comment on above: Result Comment: Vaughn mmended [...] Myocardial Infarction Performed By: #### [place] AB325, [id number] ####Weather Strip Mechanic: DOMENICA JARA ([id number])[facility] ([facility])[address] [place] [address] [place] PT Coag (PPP) [Time] 15.5 s High 9.0-12.0 [facility] Comment on above: Performed By: #### [place] AB325, [id number] ####Weather Strip Mechanic: DOMENICA JARA ([phone])[facility])[address] [place] [address] [place] PT Coag (Bld) [Time]on 03-04 INR Coag (PPP) [Relative time] 1.6 {INR} High 0.9 - 1.1 [facility] Interpretation and review of laboratory results Abnormal [facility] INR Coag (PPP) [Relative time] 1.5 {INR} High 0.9 - 1.1 [facility] Progress Noteon 03-04-[address] [facility] Progress Note Normal [facility] Progress [facility] aPTT Coag (Bld) [Time]on aPTT Coag (PPP) [Time] 52.2 s High 20.0 - 30.5 s [facility] 30on 03-03-2025 30 Normal [facility] 30 Normal [facility] 30 Normal [facility] [id number] 03-03-2025 [id number] Normal [facility] APTTon 03-03-2025 aPTT Coag (Bld) [Time] 66.2 s High 20.0-30.5 [facility] Comment on above: Result Comment: ARPAN Kaplan COMMENTS:NOTE: The therapeutic time for Heparin anticoagulation, based on Xa activity inhibition, is an APTT of 46-80 seconds. Performed By: #### L AB325 ####Weather Strip Mechanic: DOMENICA JARA ([phone])[facility])[address] [place] [address] aPTT Coag (Bld) [Time] 52.4 s High 20.0-30.5 [facility] Comment on above: Result Comment: ARPAN Kaplan COMMENTS:NOTE: The therapeutic time for Heparin anticoagulation, based on Xa activity inhibition, is an APTT of 46-80 seconds. Performed By: #### L AB325, [id number] ####Weather Strip Mechanic: DOMENICA JARA ([id number])[facility])[address] [place] [address] BASIC METABOLIC PANELon 06-0 Anion gap [Moles/Vol] 10 mmol/L Normal 3-13 [facility] Comment on above: Performed By: #### L AB15 ####Weather Strip Mechanic: DOMENICA JARA ([id number])[facility] ([facility])[address] [place] [address] Calcium [Mass/Vol] 9.2 mg/dL Normal 8.4-10.2 [facility] Comment on above: Performed By: #### L AB15 ####Weather Strip Mechanic: DOMENICA JARA ([phone])[facility])[address] [place] [address] Chloride [Moles/Vol] 100 mmol/L Normal 98-107 [facility] Comment on above: Performed By: #### L AB15 ####Weather Strip Mechanic: DOMENICA JARA ([id number])[facility])[address] [place] [address] CO2 [Moles/Vol] 29 mmol/L Normal 22-29 [facility] Comment on above: Performed By: #### L AB15 ####Weather Strip Mechanic: DOMENICA JARA ([id number])[facility])[address] [place] [address] Creatinine [Mass/Vol] 1.92 mg/dL High 0.72-1.25 [facility] Comment on above: Performed By: #### L AB15 ####Weather Strip Mechanic: DOMENICA JARA ([phone])[facility])[address] [place] [address] GLOMERULAR FILTRATION RATE ML/MIN/1.73 SQ M.PREDICTED 39.6 mL/min/1.73m*2 Low >60.0 [facility] Comment on above: Result Comment: Calc ulation based on the Chronic Kidney Disease Epidemiology Collaboration (CKD-EPI) equation refit without adjustment for race Performed By: #### L AB15 ####Weather Strip Mechanic: DOMENICA JARA ([id number])[facility])[address] [place] [address] Glucose [Mass/Vol] 71 mg/dL Low 74-100 [facility] Comment on above: Performed By: #### L AB15 ####Weather Strip Mechanic: DOMENICA JARA ([id number])[facility])[address] [place] [address] Potassium [Moles/Vol] 4.8 mmol/L Normal 3.5-5.1 [facility] Comment on above: Result Comment: [facility] potassium values may be up to 0.5 mmol/L lower than serum values. Performed By: #### L AB15 ####Weather Strip Mechanic: DOMENICA JARA ([id number])[facility])[address] [place] [address] Sodium [Moles/Vol] 139 mmol/L Normal 136-145 [facility] Comment on above: Performed By: #### L AB15 ####Weather Strip Mechanic: DOMENICA JARA ([id number])[facility] ([facility])[address] [place] [address] Urea nitrogen [Mass/Vol] 14 mg/dL Normal 9-23 [facility] Comment on above: Performed By: #### L AB15 ####Weather Strip Mechanic: DOMENICA JARA ([id number])[facility] [place] [address] Anion gap [Moles/Vol] 11 mmol/L Normal 3-13 [facility] Comment on above: Performed By: #### L AB15 ####Weather Strip Mechanic: DOMENICA JARA ([phone])[facility] ([facility])[address] [place] [address] Calcium [Mass/Vol] 9.8 mg/dL Normal 8.4-10.2 [facility] Comment on above: Performed By: #### L AB15 ####Weather Strip Mechanic: DOMENICA JARA ([id number])[facility])[address] [place] [address] [place] Chloride [Moles/Vol] 101 mmol/L Normal 98-107 [facility] Comment on above: Performed By: #### L AB15 ####Weather Strip Mechanic: DOMENICA JARA ([id number])[facility] ([facility])[address] [place] [address] [place] CO2 [Moles/Vol] 28 mmol/L Normal 22-29 [facility] Comment on above: Performed By: #### L AB15 ####Weather Strip Mechanic: DOMENICA JARA ([id number])[facility] ([facility])[address] [place] [address] [place] Creatinine [Mass/Vol] 3.21 mg/dL High 0.72-1.25 [facility] Comment on above: Performed By: #### L AB15 ####Weather Strip Mechanic: DOMENICA JARA ([id number])[facility] ([facility])[address] [place] [address] GLOMERULAR FILTRATION RATE ML/MIN/1.73 SQ M.PREDICTED 21.4 mL/min/1.73m*2 Low >60.0 [facility] Comment on above: Result Comment: Calc ulation based on the Chronic Kidney Disease Epidemiology Collaboration (CKD-EPI) equation refit without adjustment for race Performed By: #### L AB15 ####Weather Strip Mechanic: DOMENICA JARA ([id number])[facility])[address] [place] [address] Glucose [Mass/Vol] 93 mg/dL Normal 74-100 [facility] Comment on above: Performed By: #### L AB15 ####Weather Strip Mechanic: DOMENICA JARA ([id number])[address] Potassium [Moles/Vol] 6.2 mmol/L Critically high 3.5-5.1 [facility] Comment on above: Result Comment: [facility] potassium values may be up to 0.5 mmol/L lower than serum values. Performed By: #### L AB15 ####Weather Strip Mechanic: DOMENICA JARA ([id number])[facility])[address] [place] [address] Sodium [Moles/Vol] 140 mmol/L Normal 136-145 [facility] Comment on above: Performed By: #### L AB15 ####Weather Strip Mechanic: DOMENICA JRAA ([id number])[address] Urea nitrogen [Mass/Vol] 26 mg/dL High 9-23 [facility] Comment on above: Performed By: #### L AB15 ####Weather Strip Mechanic: DOMENICA JARA ([id number])[address] Basic metabolic 1998 panelOr dered By: Piedad Alvarado on 03-03-2025 Anion gap [Moles/Vol] 10 mmol/L 3 - 13 mmol/L [facility] Calcium [Mass/Vol] 9.2 mg/dL 8.4 - 10. 2 mg/dL [facility] Chloride [Moles/Vol] 100 mmol/L 98 - 10 7 mmol/L [facility] CO2 [Moles/Vol] 29 mmol/L 22 - 29 mmol/L [facility] Creatinine [Mass/Vol] 1.92 mg/dL High 0.72 - 1.25 mg/dL [facility] GFR/1.73 sq M.predicted (S/P/Bld) [Vol rate/Area] 39.6 mL/min Low - PINF [facility] Glucose [Mass/Vol] 71 mg/dL Low 74 - 100 mg/dL [facility] Interpretation and review of laboratory results Abnormal [facility] Potassium [Moles/Vol] 4.8 mmol/L 3.5 - 5.1 mmol/L [facility] Sodium [Moles/Vol] 139 mmol/L 136 - 145 mmol/L [facility] Urea nitrogen [Mass/Vol] 14 mg/dL 9 - 23 mg/d L [facility] Basic metabolic 1998 panelOr dered By: Jenni Romano on 03-03-2025 Anion gap [Moles/Vol] 11 mmol/L 3 - 13 mmol/L [facility] Calcium [Mass/Vol] 9.8 mg/dL 8.4 - 10. 2 mg/dL [facility] Chloride [Moles/Vol] 101 mmol/L 98 - 10 7 mmol/L [facility] CO2 [Moles/Vol] 28 mmol/L 22 - 29 mmol/L [facility] Creatinine [Mass/Vol] 3.21 mg/dL High 0.72 - 1.25 mg/dL [facility] GFR/1.73 sq M.predicted (S/P/Bld) [Vol rate/Area] 21.4 mL/min Low - PINF [facility] Glucose [Mass/Vol] 93 mg/dL 74 - 100 mg/dL [facility] Interpretation and review of laboratory results Abnormal [facility] Potassium [Moles/Vol] 6.2 mmol/L Critically high 3.5 - 5.1 mmol/L [facility] Sodium [Moles/Vol] 140 mmol/L 136 - 145 mmol/L [facility] Urea nitrogen [Mass/Vol] 26 mg/dL High 9 - 23 mg/d L [facility] CBC (HEMOGRAM)on 03-03-2025 Erythrocyte distribution width (RBC) [Ratio] 20.9 % High 11.5-15.0 [facility] Comment on above: Performed By: #### L [id number] ####Weather Strip Mechanic: DOMENICA JARA ([id number])[facility])[address] [place] [address] Hematocrit (Bld) [Volume fraction] 27.8 % Low 40.0-52.0 [facility] Comment on above: Performed By: #### L AB294 ####Weather Strip Mechanic: DOMENICA JARA ([id number])[facility])[address] [place] [address] Hemoglobin (Bld) [Mass/Vol] 8.3 g/dL Low 13.0-18.0 [facility] Comment on above: Performed By: #### L AB294 ####Weather Strip Mechanic: DOMENICA JARA ([id number])[address] IPF 2 Normal [facility] Comment on above: Performed By: #### L AB294 ####Weather Strip Mechanic: DOMENICA JARA ([phone])[facility])[address] [place] [address] MCH (RBC) [Entitic mass] 29.5 pg Normal 26.0-34.0 [facility] Comment on above: Performed By: #### L AB294 ####Weather Strip Mechanic: DOMENICA JARA ([id number])[facility])[address] [place] [address] MCHC 29.9 % Low 30.5-36.0 [facility] Comment on above: Performed By: #### L AB294 ####Weather Strip Mechanic: DOMENICA JARA ([id number])[address] MCV (RBC) [Entitic vol] 98.9 fL Normal 77.0-99.0 [facility] Comment on above: Performed By: #### L AB294 ####Weather Strip Mechanic: DOMENICA JARA ([id number])[facility] ([facility])[address] [place] [address] Platelet mean volume (Bld) [Entitic vol] 9.1 fL Normal 9.0-12.7 [facility] Comment on above: Performed By: #### L AB294 ####Weather Strip Mechanic: DOMENICA JARA ([id number])[facility])[address] [place] [address] Platelets (Bld) [#/Vol] 397 10*3/uL Normal 140-440 [facility] Comment on above: Performed By: #### L AB294 ####Weather Strip Mechanic: DOMENICA JARA ([id number])[facility])[address] [place] [address] RBC (Bld) [#/Vol] 2.81 10*6/uL Low 4.40-5.90 [facility] Comment on above: Performed By: #### L AB294 ####Weather Strip Mechanic: DOMENICA JARA ([id number])[facility])[address] [place] [address] WBC (Bld) [#/Vol] 8.9 10*3/uL Normal 3.6-10.7 [facility] Comment on above: Performed By: #### L AB294 ####Weather Strip Mechanic: DOMENICA JARA ([id number])[facility])[address] [place] [address] CBC panel Auto (Bld)Ordered By: Anu Graham on 03-03-2025 Erythrocyte distribution width (RBC) [Ratio] 20.9 % High 11.5 - 15.0 % [facility] Hematocrit (Bld) [Volume fraction] 27.8 % Low 40.0 - 52.0 % [facility] Hemoglobin (Bld) [Mass/Vol] 8.3 g/dL Low 13.0 - 18.0 g/dL [facility] Interpretation and review of laboratory results Abnormal [facility] IPF 2 [facility] MCH (RBC) [Entitic mass] 29.5 pg 26. 0 - 34.0 pg [facility] MCHC (RBC) [Mass/Vol] 29.9 % Low 30.5 - 36.0 % [facility] MCV (RBC) [Entitic vol] 98.9 fL 77.0 - 99.0 fL [facility] Platelet mean volume (Bld) [Entitic vol] 9.1 fL 9.0 - 12.7 fL [facility] Platelets (Bld) [#/Vol] 397 10*3/uL 140 - 440 10*3/uL [facility] RBC (Bld) [#/Vol] 2.81 10*6/uL Low 4.40 - 5.9 0 10*6/uL [facility] WBC (Bld) [#/Vol] 8.9 10*3/uL 3.6 - 10.7 10*3/uL [facility] Laboratory - Coagulationon 0 03-03-2025 PT Coag (Bld) [Time] 16.2 s High 9.0 - 12.0 s [facility] No Panel Informationon 03-03 Interpretation and review of laboratory results Abnormal [facility] Nursing Noteon 03-03-2025 Nursing Note Normal [facility] Nursing Note In patient's chart, d/t patient being on his call light excessively and finally telling me he wants something for pain. Please see eMAR for administration Normal [facility] PROTHROMBIN TIMEon INR Coag (PPP) [Relative time] 1.6 {INR} High 0.9-1.1 [facility] Comment on above: Result Comment: Vaughn mmended [...] Myocardial Infarction Performed By: #### L AB325, [id number] ####Weather Strip Mechanic: DOMENICA JARA ([id number])[facility] ([address] PT Coag (PPP) [Time] 16.2 s High 9.0-12.0 [facility] Comment on above: Performed By: #### L AB325, [id number] ####Weather Strip Mechanic: DOMENICA JARA ([id number])[facility] ([facility])[address] [place] [address] PT Coag (Bld) [Time]on 03-03 INR Coag (PPP) [Relative time] 1.6 {INR} High 0.9 - 1.1 [facility] Progress Noteon 03-03-2025 Progress Note Normal [facility] Progress Note Normal [facility] Progress Note Normal [facility] aPTT Coag (Bld) [Time]on aPTT Coag (PPP) [Time] 66.2 s High 20.0 - 30.5 s [facility] Interpretation and review of laboratory results Abnormal [facility] aPTT Coag (PPP) [Time] 52.4 s High 20.0 - 30.5 s [facility] 30on 03-02-2025 30 Switch to augmentin 500mg q24 (to be taken after HD on HD days) until 03/10/25. Team aware of discharge plan Waiting for INR to be in therapeutic range ID will sign off Please re consult if needed Hussain Quintana MD 03/02/2025 12:43 PM Normal [facility] 30 Normal [facility] [id number] 03-02-2025 [id number] Normal [facility] APTTon 03-02-2025 aPTT Coag (Bld) [Time] 68.9 s High 20.0-30.5 [facility] Comment on above: Result Comment: ARPAN Kaplan COMMENTS:NOTE: The therapeutic time for Heparin anticoagulation, based on Xa activity inhibition, is an APTT of 46-80 seconds. Performed By: #### L AB325 ####Weather Strip Mechanic: DOMENICA JARA ([id number])[facility] ([facility])[address] [place] [address] [place] aPTT Coag (Bld) [Time] 44.7 s High 20.0-30.5 [facility] Comment on above: Result Comment: ARPAN Kaplan COMMENTS:NOTE: The therapeutic time for Heparin anticoagulation, based on Xa activity inhibition, is an APTT of 46-80 seconds. Performed By: #### L AB325 ####Weather Strip Mechanic: DOMENICA JARA ([id number])[facility])[address] [place] [address] aPTT Coag (Bld) [Time] 56.5 s High 20.0-30.5 [facility] Comment on above: Result Comment: ARPAN Kaplan COMMENTS:NOTE: The therapeutic time for Heparin anticoagulation, based on Xa activity inhibition, is an APTT of 46-80 seconds. Performed By: #### L AB325 ####Weather Strip Mechanic: DOMENICA JARA ([id number])[facility])[address] [place] [address] aPTT Coag (Bld) [Time] 44.7 s High 20.0-30.5 [facility] Comment on above: Result Comment: ARPAN Kaplan COMMENTS:NOTE: The therapeutic time for Heparin anticoagulation, based on Xa activity inhibition, is an APTT of 46-80 seconds. Performed By: #### L AB320, [id number] ####Weather Strip Mechanic: DOMENICA JARA ([id number])[facility])[address] [place] [address] BASIC METABOLIC PANELon 06-0 Anion gap [Moles/Vol] 11 mmol/L Normal 3-13 [facility] Comment on above: Performed By: #### L AB15 ####Weather Strip Mechanic: DOMENICA JARA ([id number])[facility])[address] [place] [address] Calcium [Mass/Vol] 9.2 mg/dL Normal 8.4-10.2 [facility] Comment on above: Performed By: #### L AB15 ####Weather Strip Mechanic: DOMENICA [id number])[facility])[address] [place] [address] Chloride [Moles/Vol] 102 mmol/L Normal 98-107 [facility] Comment on above: Performed By: #### L AB15 ####Weather Strip Mechanic: DOMENICA JARA ([id number])[facility] ([facility])[address] [place] [address] CO2 [Moles/Vol] 26 mmol/L Normal 22-29 [facility] Comment on above: Performed By: #### L AB15 ####Weather Strip Mechanic: DOMENICA JARA ([id number])[facility])[address] [place] [address] Creatinine [Mass/Vol] 2.53 mg/dL High 0.72-1.25 [facility] Comment on above: Performed By: #### L AB15 ####Weather Strip Mechanic: DOMENICA JARA ([phone])[facility])[address] [place] [address] GLOMERULAR FILTRATION RATE ML/MIN/1.73 SQ M.PREDICTED 28.5 mL/min/1.73m*2 Low >60.0 [facility] Comment on above: Result Comment: Calc ulation based on the Chronic Kidney Disease Epidemiology Collaboration (CKD-EPI) equation refit without adjustment for race Performed By: #### L AB15 ####Weather Strip Mechanic: DOMENICA JARA ([phone])[facility])[address] [place] [address] Glucose [Mass/Vol] 107 mg/dL High 74-100 [facility] Comment on above: Performed By: #### L AB15 ####Weather Strip Mechanic: DOMENICA JRAA ([id number])[facility])[address] [place] [address] Potassium [Moles/Vol] 4.6 mmol/L Normal 3.5-5.1 [facility] Comment on above: Result Comment: [facility] potassium values may be up to 0.5 mmol/L lower than serum values. Performed By: #### L AB15 ####Weather Strip Mechanic: DOMENICA JARA ([id number])[facility])[address] [place] [address] Sodium [Moles/Vol] 139 mmol/L Normal 136-145 [facility] Comment on above: Performed By: #### L AB15 ####Weather Strip Mechanic: DOMENICA JARA ([id number])[address] Urea nitrogen [Mass/Vol] 16 mg/dL Normal 9-23 [facility] Comment on above: Performed By: #### L AB15 ####Weather Strip Mechanic: DOMENICA JARA ([id number])[facility])[address] [place] [address] Basic metabolic 1998 panelon 03-02-2025 Anion gap [Moles/Vol] 11 mmol/L 3 - 13 mmol/L [facility] Calcium [Mass/Vol] 9.2 mg/dL 8.4 - 10. 2 mg/dL [facility] Chloride [Moles/Vol] 102 mmol/L 98 - 10 7 mmol/L [facility] CO2 [Moles/Vol] 26 mmol/L 22 - 29 mmol/L [facility] Creatinine [Mass/Vol] 2.53 mg/dL High 0.72 - 1.25 mg/dL [facility] GFR/1.73 sq M.predicted (S/P/Bld) [Vol rate/Area] 28.5 mL/min Low - PINF [facility] Glucose [Mass/Vol] 107 mg/dL High 74 - 100 mg/dL [facility] Interpretation and review of laboratory results Abnormal [facility] Potassium [Moles/Vol] 4.6 mmol/L 3.5 - 5.1 mmol/L [facility] Sodium [Moles/Vol] 139 mmol/L 136 - 145 mmol/L [facility] Urea nitrogen [Mass/Vol] 16 mg/dL 9 - 23 mg/d L [facility] CBC (HEMOGRAM)on 03-02-2025 Erythrocyte distribution width (RBC) [Ratio] 20.1 % High 11.5-15.0 [facility] Comment on above: Performed By: #### L [id number] ####Weather Strip Mechanic: DOMENICA JARA ([phone])[facility] ([facility])[address] [place] [address] Hematocrit (Bld) [Volume fraction] 25.4 % Low 40.0-52.0 [facility] Comment on above: Performed By: #### L [id number] ####Weather Strip Mechanic: DOMENICA JARA ([id number])[facility])[address] [place] [address] Hemoglobin (Bld) [Mass/Vol] 7.7 g/dL Low 13.0-18.0 [facility] Comment on above: Performed By: #### L AB294 ####Weather Strip Mechanic: DOMENICA JARA ([id number])[facility])[address] [place] [address] IPF 2 Normal [facility] Comment on above: Performed By: #### L [id number] ####Weather Strip Mechanic: DOMENICA JARA ([id number])[facility])[address] [place] [address] MCH (RBC) [Entitic mass] 29.7 pg Normal 26.0-34.0 [facility] Comment on above: Performed By: #### L AB294 ####Weather Strip Mechanic: DOMENICA JARA ([id number])[facility] ([facility])[address] [place] [address] MCHC 30.3 % Low 30.5-36.0 [facility] Comment on above: Performed By: #### L AB294 ####Weather Strip Mechanic: DOMENICA JARA ([id number])[facility])[address] [place] [address] MCV (RBC) [Entitic vol] 98.1 fL Normal 77.0-99.0 [facility] Comment on above: Performed By: #### L AB294 ####Weather Strip Mechanic: DOMENICA JARA ([id number])[facility])[address] [place] [address] Platelet mean volume (Bld) [Entitic vol] 9.0 fL Normal 9.0-12.7 [facility] Comment on above: Performed By: #### L AB294 ####Weather Strip Mechanic: DOMENICA JARA ([id number])[facility])[address] [place] [address] Platelets (Bld) [#/Vol] 354 10*3/uL Normal 140-440 [facility] Comment on above: Performed By: #### L [id number] ####Weather Strip Mechanic: DOMENICA JARA ([id number])[facility] ([facility])[address] [place] [address] RBC (Bld) [#/Vol] 2.59 10*6/uL Low 4.40-5.90 [facility] Comment on above: Performed By: #### L [id number] ####Weather Strip Mechanic: DOMENICA JARA ([id number])[facility] ([facility])[address] [place] [address] WBC (Bld) [#/Vol] 7.4 10*3/uL Normal 3.6-10.7 [facility] Comment on above: Performed By: #### L [id number] ####Weather Strip Mechanic: DOMENICA JARA ([id number])[facility] ([facility])[address] [place] [address] CBC panel Auto (Bld)Ordered By: Callie Steele on 03-02-2025 Erythrocyte distribution width (RBC) [Ratio] 20.1 % High 11.5 - 15.0 % [facility] Hematocrit (Bld) [Volume fraction] 25.4 % Low 40.0 - 52.0 % [facility] Hemoglobin (Bld) [Mass/Vol] 7.7 g/dL Low 13.0 - 18.0 g/dL [facility] Interpretation and review of laboratory results Abnormal [facility] IPF 2 [facility] MCH (RBC) [Entitic mass] 29.7 pg 26. 0 - 34.0 pg [facility] MCHC (RBC) [Mass/Vol] 30.3 % Low 30.5 - 36.0 % [facility] MCV (RBC) [Entitic vol] 98.1 fL 77.0 - 99.0 fL [facility] Platelet mean volume (Bld) [Entitic vol] 9 fL 9.0 - 12.7 fL [facility] Platelets (Bld) [#/Vol] 354 10*3/uL 140 - 440 10*3/uL [facility] RBC (Bld) [#/Vol] 2.59 10*6/uL Low 4.40 - 5.9 0 10*6/uL [facility] WBC (Bld) [#/Vol] 7.4 10*3/uL 3.6 - 10.7 10*3/uL [facility] Laboratory - Coagulationon 0 03-02-2025 PT Coag (Bld) [Time] 14.7 s High 9.0 - 12.0 s [facility] No Panel Informationon 03-02 Interpretation and review of laboratory results Abnormal [facility] PROTHROMBIN TIMEon INR Coag (PPP) [Relative time] 1.4 {INR} High 0.9-1.1 [facility] [facility] Comment on above: Result Comment: Vaughn mmended [...] Myocardial Infarction Performed By: #### Tameka [id number], [id number] ####Weather Strip Mechanic: DOMENICA JARA ([id number])[address] PT Coag (PPP) [Time] 14.7 s High 9.0-12.0 [facility] Comment on above: Performed By: #### Tameka AB320, [id number] ####Weather Strip Mechanic: DOMENICA JARA ([id number])[address] PT Coag (Bld) [Time]on 03-02 INR Coag (PPP) [Relative time] 1.4 {INR} High 0.9 - 1.1 [facility] Progress Noteon 03-02-2025 Progress Note Normal [facility] Progress Note Normal [facility] Progress Note Normal [facility] aPTT Coag (Bld) [Time]on aPTT Coag (PPP) [Time] 68.9 s High 20.0 - 30.5 s [facility] Interpretation and review of laboratory results Abnormal [facility] aPTT Coag (PPP) [Time] 44.7 s High 20.0 - 30.5 s [facility] Interpretation and review of laboratory results Abnormal [facility] aPTT Coag (PPP) [Time] 56.5 s High 20.0 - 30.5 s [facility] Interpretation and review of laboratory results Abnormal [facility] aPTT Coag (PPP) [Time] 44.7 s High 20.0 - 30.5 s [facility] 30on 03-01-2025 30 Normal [facility] [id number] 03-01-2025 [id number] Discharge med list and updated notes transmitted to [facility] via [facility] per TCC request. [id number] Normal [facility] APTTon 03-01-2025 aPTT Coag (Bld) [Time] 51.3 s High 20.0-30.5 [facility] Comment on above: Result Comment: ARPAN Kaplan COMMENTS:NOTE: The therapeutic time for Heparin anticoagulation, based on Xa activity inhibition, is an APTT of 46-80 seconds. Performed By: #### L AB320, [id number] ####Weather Strip Mechanic: DOMENICA JARA ([id number])[facility] ([facility])[address] [place] [address] BASIC METABOLIC PANELon Anion gap [Moles/Vol] 13 mmol/L Normal 3-13 [facility] Comment on above: Performed By: #### L AB15 ####Weather Strip Mechanic: DOMENICA JARA ([id number])[facility] ([facility])[address] [place] [address] Calcium [Mass/Vol] 9.6 mg/dL Normal 8.4-10.2 [facility] Comment on above: Performed By: #### L AB15 ####Weather Strip Mechanic: DOMENICA JARA ([id number])[facility] ([facility])[address] [place] [address] Chloride [Moles/Vol] 102 mmol/L Normal 98-107 [facility] Comment on above: Performed By: #### L AB15 ####Weather Strip Mechanic: DOMENICA JARA ([id number])[facility] ([facility])[address] [place] [address] CO2 [Moles/Vol] 23 mmol/L Normal 22-29 [facility] Comment on above: Performed By: #### L AB15 ####Weather Strip Mechanic: DOMENICA JARA ([id number])[facility] ([facility])[address] [place] [address] Creatinine [Mass/Vol] 3.73 mg/dL High 0.72-1.25 [facility] Comment on above: Performed By: #### L AB15 ####Weather Strip Mechanic: DOMENICA JARA ([id number])[facility] ([facility])[address] [place] [address] [place] GLOMERULAR FILTRATION RATE ML/MIN/1.73 SQ M.PREDICTED 17.9 mL/min/1.73m*2 Low >60.0 [facility] Comment on above: Result Comment: Calc ulation based on the Chronic Kidney Disease Epidemiology Collaboration (CKD-EPI) equation refit without adjustment for race Performed By: #### L AB15 ####Weather Strip Mechanic: DOMENICA JARA ([id number])[facility] ([facility])[address] [place] [address] Glucose [Mass/Vol] 87 mg/dL Normal 74-100 [facility] Comment on above: Performed By: #### L AB15 ####Weather Strip Mechanic: DOMENICA JARA ([id number])[facility] ([facility])[address] [place] [address] [place] Potassium [Moles/Vol] 5.8 mmol/L High 3.5-5.1 [facility] Comment on above: Result Comment: [facility]as [facility] potassium values may be up to 0.5 mmol/L lower than serum values. Performed By: #### L AB15 ####Weather Strip Mechanic: DOMENICA JARA ([id number])[facility])[address] [place] [address] Sodium [Moles/Vol] 138 mmol/L Normal 136-145 [facility] Comment on above: Performed By: #### L AB15 ####Weather Strip Mechanic: DOMENICA JARA ([id number])[facility] ([facility])[address] [place] [address] Urea nitrogen [Mass/Vol] 28 mg/dL High 9-23 [facility] Comment on above: Performed By: #### L AB15 ####Weather Strip Mechanic: DOMENICA JARA ([phone])[facility])[address] [place] [address] Basic metabolic 1998 panelon 03-01-2025 Anion gap [Moles/Vol] 13 mmol/L 3 - 13 mmol/L [facility] Calcium [Mass/Vol] 9.6 mg/dL 8.4 - 10. 2 mg/dL [facility] Chloride [Moles/Vol] 102 mmol/L 98 - 10 7 mmol/L [facility] CO2 [Moles/Vol] 23 mmol/L 22 - 29 mmol/L [facility] Creatinine [Mass/Vol] 3.73 mg/dL High 0.72 - 1.25 mg/dL [facility] GFR/1.73 sq M.predicted (S/P/Bld) [Vol rate/Area] 17.9 mL/min Low - PINF [facility] Glucose [Mass/Vol] 87 mg/dL 74 - 100 mg/dL [facility] Interpretation and review of laboratory results Abnormal [facility] Potassium [Moles/Vol] 5.8 mmol/L High 3.5 - 5.1 mmol/L [facility] Sodium [Moles/Vol] 138 mmol/L 136 - 145 mmol/L [facility] Urea nitrogen [Mass/Vol] 28 mg/dL High 9 - 23 mg/d L [facility] CBC (HEMOGRAM)on 03-01-2025 Erythrocyte distribution width (RBC) [Ratio] 19.7 % High 11.5-15.0 [facility] Comment on above: Performed By: #### L AB294 ####Weather Strip Mechanic: DOMENICA JARA ([id number])[address] Hematocrit (Bld) [Volume fraction] 26.9 % Low 40.0-52.0 [facility] Comment on above: Performed By: #### L AB294 ####Weather Strip Mechanic: DOMENICA JARA ([id number])[facility])[address] [place] [address] Hemoglobin (Bld) [Mass/Vol] 8.0 g/dL Low 13.0-18.0 [facility] Comment on above: Performed By: #### L AB294 ####Weather Strip Mechanic: DOMENICA JARA ([id number])[address] MCH (RBC) [Entitic mass] 28.8 pg Normal 26.0-34.0 [facility] Comment on above: Performed By: #### L AB294 ####Weather Strip Mechanic: DOMENICA JARA ([id number])[facility])[address] [place] [address] MCHC 29.7 % Low 30.5-36.0 [facility] Comment on above: Performed By: #### L AB294 ####Weather Strip Mechanic: DOMENICA JARA ([id number])[facility])[address] [place] [address] MCV (RBC) [Entitic vol] 96.8 fL Normal 77.0-99.0 [facility] Comment on above: Performed By: #### L AB294 ####Weather Strip Mechanic: DOMENICA JARA ([id number])[address] Platelet mean volume (Bld) [Entitic vol] 8.7 fL Low 9.0-12.7 [facility] Comment on above: Performed By: #### L AB294 ####Weather Strip Mechanic: DOMENICA [id number])[facility] ([facility])[address] [place] [address] Platelets (Bld) [#/Vol] 306 10*3/uL Normal 140-440 [facility] Comment on above: Performed By: #### L AB294 ####Weather Strip Mechanic: DOMENICA JARA ([id number])[facility])[address] [place] [address] RBC (Bld) [#/Vol] 2.78 10*6/uL Low 4.40-5.90 [facility] Comment on above: Performed By: #### L AB294 ####Weather Strip Mechanic: DOMENICA JARA ([id number])[facility])[address] [place] [address] WBC (Bld) [#/Vol] 7.5 10*3/uL Normal 3.6-10.7 [facility] Comment on above: Performed By: #### L AB294 ####Weather Strip Mechanic: DOMENICA JARA ([id number])[facility] ([facility])[address] [place] [address] CBC panel Auto (Bld)on 03-01 Erythrocyte distribution width (RBC) [Ratio] 19.7 % High 11.5 - 15.0 % [facility] Hematocrit (Bld) [Volume fraction] 26.9 % Low 40.0 - 52.0 % [facility] Hemoglobin (Bld) [Mass/Vol] 8 g/dL Low 13.0 - 18.0 g/dL [facility] Interpretation and review of laboratory results Abnormal [facility] MCH (RBC) [Entitic mass] 28.8 pg 26. 0 - 34.0 pg [facility] MCHC (RBC) [Mass/Vol] 29.7 % Low 30.5 - 36.0 % [facility] MCV (RBC) [Entitic vol] 96.8 fL 77.0 - 99.0 fL [facility] Platelet mean volume (Bld) [Entitic vol] 8.7 fL Low 9.0 - 12.7 fL [facility] Platelets (Bld) [#/Vol] 306 10*3/uL 140 - 440 10*3/uL [facility] RBC (Bld) [#/Vol] 2.78 10*6/uL Low 4.40 - 5.9 0 10*6/uL [facility] WBC (Bld) [#/Vol] 7.5 10*3/uL 3.6 - 10.7 10*3/uL [facility] Laboratory - Coagulationon 0 03-01-2025 PT Coag (Bld) [Time] 14.3 s High 9.0 - 12.0 s [facility] No Panel Informationon 03-01 Interpretation and review of laboratory results Abnormal [facility] Nursing Noteon 03-01-2025 Nursing Note Normal [facility] PROTHROMBIN TIMEon INR Coag (PPP) [Relative time] 1.4 {INR} High 0.9-1.1 [facility] Comment on above: Result Comment: Vaughn mmended [...] Myocardial Infarction Performed By: #### Tameka AB320, [id number] ####Weather Strip Mechanic: DOMENICA JARA ([phone])[address] PT Coag (PPP) [Time] 14.3 s High 9.0-12.0 [facility] Comment on above: Performed By: #### L AB320, [id number] ####Weather Strip Mechanic: DOMENICA JARA ([id number])[facility] ([facility])[address] [place] [address] PT Coag (Bld) [Time]on 03-01 INR Coag (PPP) [Relative time] 1.4 {INR} High 0.9 - 1.1 [facility] Progress Noteon 03-01-2025 Progress Note Normal [facility] Progress Note Normal [facility] Progress Note Normal [facility] Progress Note Normal [facility] Progress Note PHYSICAL THERAPY [facility] Name/MRN: Jair Snyder ([id number]) Date: 03/01/2025 Leaving for dialysis. Return later time/date for PT. Merlene León, COPYWRITING INTERN Normal [facility] Progress Note Normal [facility] aPTT Coag (Bld) [Time]on aPTT Coag (PPP) [Time] 51.3 s High 20.0 - 30.5 s [facility] 30on 02-28-2025 30 Normal [facility] 30 Normal [facility] [id number] 02-28-2025 [id number] Auth is back however can not discharge still on hep gtt- auth good thru 03/02- hoping by Wednesday AM . Updated snf . [phone] Transport requested in [employer] in will call per TCC. [phone] Tasked [employer] to set up transport in will call, not ready for DC, Auth pending APTTon 02-28-2025 aPTT Coag (Bld) [Time] 47.7 s High 20.0-30.5 [facility] Comment on above: Result Comment: ARPAN Kaplan COMMENTS:NOTE: The therapeutic time for Heparin anticoagulation, based on Xa activity inhibition, is an APTT of 46-80 seconds. Performed By: #### L AB325, [id number] ####Weather Strip Mechanic: DOMENICA JARA ([id number])[facility] ([id number] BASIC METABOLIC PANELon 060 Anion gap [Moles/Vol] 11 mmol/L Normal 3-13 [facility] Comment on above: Performed By: #### L AB15 ####Weather Strip Mechanic: DOMENICA JARA ([id number])[facility] [place] [address] Calcium [Mass/Vol] 9.3 mg/dL Normal 8.4-10.2 [facility] Comment on above: Performed By: #### L AB15 ####Weather Strip Mechanic: DOMENICA JARA ([id number])[facility] [place] [address] Chloride [Moles/Vol] 100 mmol/L Normal 98-107 [facility] Comment on above: Performed By: #### L AB15 ####Weather Strip Mechanic: DOMENICA JARA ([id number])[facility] ([facility])[address] [place] [address] CO2 [Moles/Vol] 27 mmol/L Normal 22-29 [facility] Comment on above: Performed By: #### L AB15 ####Weather Strip Mechanic: DOMENICA JARA ([id number])[facility] ([facility])[address] [place] [address] Creatinine [Mass/Vol] 3.06 mg/dL High 0.72-1.25 [facility] Comment on above: Performed By: #### L AB15 ####Weather Strip Mechanic: DOMENICA JARA ([id number])[facility] ([facility])[address] [place] [address] GLOMERULAR FILTRATION RATE ML/MIN/1.73 SQ M.PREDICTED 22.7 mL/min/1.73m*2 Low >60.0 [facility] Comment on above: Result Comment: Calc ulation based on the Chronic Kidney Disease Epidemiology Collaboration (CKD-EPI) equation refit without adjustment for race Performed By: #### L AB15 ####Weather Strip Mechanic: DOMENICA JARA ([id number])[facility] ([facility])[address] [place] [address] [place] Glucose [Mass/Vol] 94 mg/dL Normal 74-100 [facility] Comment on above: Performed By: #### L AB15 ####Weather Strip Mechanic: DOMENICA [id number])[facility] ([facility] Potassium [Moles/Vol] 5.0 mmol/L Normal 3.5-5.1 [facility] Comment on above: Result Comment: [facility] potassium values may be up to 0.5 mmol/L lower than serum values. Performed By: #### L AB15 ####Weather Strip Mechanic: DOMENICA JARA ([id number])[facility] ([facility])[address] [place] [address] Sodium [Moles/Vol] 138 mmol/L Normal 136-145 [facility] Comment on above: Performed By: #### L AB15 ####Weather Strip Mechanic: DOMENICA JARA ([id number])[facility])[address] [place] [address] Urea nitrogen [Mass/Vol] 19 mg/dL Normal 9-23 [facility] Comment on above: Performed By: #### L AB15 ####Weather Strip Mechanic: DOMENICA JARA ([id number])[facility] ([facility])[address] [place] [address] Basic metabolic 1998 panelon 02-28-2025 Anion gap [Moles/Vol] 11 mmol/L 3 - 13 mmol/L [facility] Calcium [Mass/Vol] 9.3 mg/dL 8.4 - 10. 2 mg/dL [facility] Chloride [Moles/Vol] 100 mmol/L 98 - 10 7 mmol/L [facility] CO2 [Moles/Vol] 27 mmol/L 22 - 29 mmol/L [facility] Creatinine [Mass/Vol] 3.06 mg/dL High 0.72 - 1.25 mg/dL [facility] GFR/1.73 sq M.predicted (S/P/Bld) [Vol rate/Area] 22.7 mL/min Low - PINF [facility] Glucose [Mass/Vol] 94 mg/dL 74 - 100 mg/dL [facility] Interpretation and review of laboratory results Abnormal [facility] Potassium [Moles/Vol] 5 mmol/L 3.5 - 5.1 mmol/L [facility] Sodium [Moles/Vol] 138 mmol/L 136 - 145 mmol/L [facility] Urea nitrogen [Mass/Vol] 19 mg/dL 9 - 23 mg/d L [facility] CBC (HEMOGRAM)on 02-28-2025 Erythrocyte distribution width (RBC) [Ratio] 19.8 % High 11.5-15.0 [facility] Comment on above: Performed By: #### L [id number] ####Weather Strip Mechanic: DOMENICA JARA ([id number])[facility] ([facility])[address] [place] [address] Hematocrit (Bld) [Volume fraction] 26.9 % Low 40.0-52.0 [facility] Comment on above: Performed By: #### L AB294 ####Weather Strip Mechanic: DOMENICA JARA ([id number])[facility])[address] [place] [address] Hemoglobin (Bld) [Mass/Vol] 8.2 g/dL Low 13.0-18.0 [facility] Comment on above: Performed By: #### L AB294 ####Weather Strip Mechanic: DOMENICA JARA ([id number])[facility] ([facility])[address] [place] [address] MCH (RBC) [Entitic mass] 29.3 pg Normal 26.0-34.0 [facility] Comment on above: Performed By: #### L AB294 ####Weather Strip Mechanic: DOMENICA JARA ([id number])[facility])[address] [place] [address] MCHC 30.5 % Normal 30.5-36.0 [facility] Comment on above: Performed By: #### L AB294 ####Weather Strip Mechanic: DOMENICA JARA ([id number])[facility] ([facility])[address] [place] [address] MCV (RBC) [Entitic vol] 96.1 fL Normal 77.0-99.0 [facility] Comment on above: Performed By: #### L AB294 ####Weather Strip Mechanic: DOMENICA JARA ([id number])[facility])[address] [place] [address] Platelet mean volume (Bld) [Entitic vol] 9.0 fL Normal 9.0-12.7 [facility] Comment on above: Performed By: #### L AB294 ####Weather Strip Mechanic: DOMENICA JARA ([id number])[facility] ([facility])[address] [place] [address] Platelets (Bld) [#/Vol] 324 10*3/uL Normal 140-440 [facility] Comment on above: Performed By: #### L AB294 ####Weather Strip Mechanic: DOMENICA JARA ([id number])[facility] ([facility])[address] [place] [address] RBC (Bld) [#/Vol] 2.80 10*6/uL Low 4.40-5.90 [facility] Comment on above: Performed By: #### L AB294 ####Weather Strip Mechanic: DOMENICA JARA ([id number])[facility] ([facility])[address] [place] [address] WBC (Bld) [#/Vol] 8.0 10*3/uL Normal 3.6-10.7 [facility] Comment on above: Performed By: #### L AB294 ####Weather Strip Mechanic: DOMENICA JARA ([id number])[facility] ([facility])[address] [place] [address] CBC panel Auto (Bld)Ordered By: Giancarlo Lakhani on 02-28-2025 Erythrocyte distribution width (RBC) [Ratio] 19.8 % High 11.5 - 15.0 % [facility] Hematocrit (Bld) [Volume fraction] 26.9 % Low 40.0 - 52.0 % [facility] Hemoglobin (Bld) [Mass/Vol] 8.2 g/dL Low 13.0 - 18.0 g/dL [facility] Interpretation and review of laboratory results Abnormal [facility] MCH (RBC) [Entitic mass] 29.3 pg 26. 0 - 34.0 pg [facility] MCHC (RBC) [Mass/Vol] 30.5 % 30.5 - 36.0 % [facility] MCV (RBC) [Entitic vol] 96.1 fL 77.0 - 99.0 fL [facility] Platelet mean volume (Bld) [Entitic vol] 9 fL 9.0 - 12.7 fL [facility] Platelets (Bld) [#/Vol] 324 10*3/uL 140 - 440 10*3/uL [facility] RBC (Bld) [#/Vol] 2.8 10*6/uL Low 4.40 - 5.9 0 10*6/uL [facility] WBC (Bld) [#/Vol] 8 10*3/uL 3.6 - 10.7 10*3/uL [facility] Laboratory - Coagulationon 0 02-28-2025 PT Coag (Bld) [Time] 14 s High 9.0 - 12.0 s [facility] No Panel Informationon 02-28 Interpretation and review of laboratory results Abnormal [facility] Nursing Noteon 02-28-2025 Nursing Note Normal [facility] PROTHROMBIN TIMEon INR Coag (PPP) [Relative time] 1.3 {INR} High 0.9-1.1 [facility] Comment on above: Result Comment: Vaughn mmended [...] Myocardial Infarction Performed By: #### Tameka AB325, [id number] ####Weather Strip Mechanic: DOMENICA JARA ([id number])[facility] ([facility])[address] [place] [address] [place] PT Coag (PPP) [Time] 14.0 s High 9.0-12.0 [facility] Comment on above: Performed By: #### Tameka AB325, [id number] ####Weather Strip Mechanic: DOMENICA JARA ([id number])[facility] ([facility])[address] [place] [address] [place] PT Coag (Bld) [Time]on 02-28 INR Coag (PPP) [Relative time] 1.3 {INR} High 0.9 - 1.1 [facility] Progress Noteon 02-28-[address] [facility] Progress Note Normal [facility] Progress Note Normal [facility] Progress Note Normal [facility] aPTT Coag (Bld) [Time]on aPTT Coag (PPP) [Time] 47.7 s High 20.0 - 30.5 s [facility] 30on 02-27-2025 30 Normal [facility] 30 Normal [facility] [id number] 02-27-2025 [id number] Normal [facility] APTTon 02-27-2025 aPTT Coag (Bld) [Time] 55.6 s High 20.0-30.5 [facility] Comment on above: Result Comment: ARPAN Kaplan COMMENTS:NOTE: The therapeutic time for Heparin anticoagulation, based on Xa activity inhibition, is an APTT of 46-80 seconds. Performed By: #### L AB325, [id number] ####Weather Strip Mechanic: DOMENICA JARA ([id number])[address] Bacteria identified Cx Nom ( Bld)on 02-27-2025 Interpretation and review of laboratory results Normal [facility] Interpretation and review of laboratory results Normal [facility] CBC (HEMOGRAM)on 02-27-2025 Erythrocyte distribution width (RBC) [Ratio] 19.5 % High 11.5-15.0 [facility] Comment on above: Performed By: #### L AB294 ####Weather Strip Mechanic: DOMENICA JARA ([id number])[address] Hematocrit (Bld) [Volume fraction] 28.8 % Low 40.0-52.0 [facility] Comment on above: Performed By: #### L AB294 ####Weather Strip Mechanic: DOMENICA JARA ([id number])[address] [address] [place] Hemoglobin (Bld) [Mass/Vol] 8.6 g/dL Low 13.0-18.0 [facility] Comment on above: Performed By: #### L AB294 ####Weather Strip Mechanic: DOMENICA JARA ([id number])[facility] ([facility])[address] [place] [address] MCH (RBC) [Entitic mass] 28.7 pg Normal 26.0-34.0 [facility] Comment on above: Performed By: #### L AB294 ####Weather Strip Mechanic: DOMENICA JARA ([id number])[facility])[address] [place] [address] MCHC 29.9 % Low 30.5-36.0 [facility] Comment on above: Performed By: #### L AB294 ####Weather Strip Mechanic: DOMENICA JARA ([id number])[facility] ([facility])[address] [place] [address] MCV (RBC) [Entitic vol] 96.0 fL Normal 77.0-99.0 [facility] Comment on above: Performed By: #### L AB294 ####Weather Strip Mechanic: DOMENICA JARA ([id number])[facility])[address] [place] [address] Platelet mean volume (Bld) [Entitic vol] 8.9 fL Low 9.0-12.7 [facility] Comment on above: Performed By: #### L [id number] ####Weather Strip Mechanic: DOMENICA JARA ([id number])[facility] ([facility])[address] [place] [address] Platelets (Bld) [#/Vol] 302 10*3/uL Normal 140-440 [facility] Comment on above: Performed By: #### L [id number] ####Weather Strip Mechanic: DOMENICA JARA ([id number])[facility] ([facility])[address] [place] [address] RBC (Bld) [#/Vol] 3.00 10*6/uL Low 4.40-5.90 [facility] Comment on above: Performed By: #### L [id number] ####Weather Strip Mechanic: DOMENICA JARA ([id number])[facility] [place] [address] WBC (Bld) [#/Vol] 7.9 10*3/uL Normal 3.6-10.7 [facility] Comment on above: Performed By: #### L [id number] ####Weather Strip Mechanic: DOMENICA JARA ([id number])[facility] ([facility])[address] [place] [address] CBC panel Auto (Bld)Ordered By: Brandy Ross on 02-27-2025 Erythrocyte distribution width (RBC) [Ratio] 19.5 % High 11.5 - 15.0 % [facility] Hematocrit (Bld) [Volume fraction] 28.8 % Low 40.0 - 52.0 % [facility] Hemoglobin (Bld) [Mass/Vol] 8.6 g/dL Low 13.0 - 18.0 g/dL [facility] Interpretation and review of laboratory results Abnormal [facility] MCH (RBC) [Entitic mass] 28.7 pg 26. 0 - 34.0 pg [facility] MCHC (RBC) [Mass/Vol] 29.9 % Low 30.5 - 36.0 % [facility] MCV (RBC) [Entitic vol] 96 fL 77.0 - 99.0 fL [facility] Platelet mean volume (Bld) [Entitic vol] 8.9 fL Low 9.0 - 12.7 fL [facility] Platelets (Bld) [#/Vol] 302 10*3/uL 140 - 440 10*3/uL [facility] RBC (Bld) [#/Vol] 3 10*6/uL Low 4.40 - 5.9 0 10*6/uL [facility] WBC (Bld) [#/Vol] 7.9 10*3/uL 3.6 - 10.7 10*3/uL [facility] ECG 12-LEADon 02-27-2025 ECG 12-LEAD IMPRESSION: Sinus rhythm Left atrial enlargement RBBB and LPFB Abnrm T, consider ischemia, anterolateral lds Compared to ECG 01/19/2025 06:31:48 Prolonged QT interval no longer present Electronically Signed On 02-27-2025 16:08:17 EDT by Ochoa Guido Normal [facility] Laboratory - Coagulationon 0 02-27-2025 PT Coag (Bld) [Time] 13.7 s High 9.0 - 12.0 s [facility] Laboratory - Microbiology an d Antimicrobial susceptibilityon 02-27-2025 Bacteria identified Cx Nom (Bld) No growth at 5 days [facility] [employer] Bacteria identified Cx Nom (Bld) No growth at 5 days [facility] [employer] [facility] No Panel InformationOrdered By: Ochoa Guido on 02-27-2025 P [place] 76 degrees [facility] [employer] Work Phone: VT Interval 150 ms [facility] Work Phone: QRS [place] 92 degrees [facility] [employer] Work Phone: QRSD Interval 124 ms [facility] [employer] Work Phone: QT Interval 417 ms [facility] [employer] Work Phone: QTC Interval 482 ms [facility] [employer] Work Phone: T Wave [place] 95 degrees [facility] Work Phone: [facility] Work Phone: No Panel Informationon 02-27 CV EPIPHANY [facility] Interpretation and review of laboratory results Abnormal [facility] Nursing Noteon 02-27-2025 Nursing Note Normal [facility] Nursing Note Normal [facility] PROTHROMBIN TIMEon INR Coag (PPP) [Relative time] 1.3 {INR} High 0.9-1.1 [facility] Comment on above: Result Comment: Vaughn mmended [...] Myocardial Infarction Performed By: #### L [id number], [id number] ####Weather Strip Mechanic: DOMENICA JARA ([id number])[facility] ([facility])[address] [place] [address] PT Coag (PPP) [Time] 13.7 s High 9.0-12.0 [facility] Comment on above: Performed By: #### Tameka [id number], [id number] ####Weather Strip Mechanic: DOMENICA JARA ([id number])[facility] ([facility])[address] [place] [address] PT Coag (Bld) [Time]on 02-27 INR Coag (PPP) [Relative time] 1.3 {INR} High 0.9 - 1.1 [facility] Progress Noteon 02-27-[address] [facility] Progress Note Normal [facility] Progress Note Normal [facility] Progress Note Normal [facility] Vital signsOrdered By: Ochoa Guido on 02-27-2025 Heart rate 80 /min bpm [facility] Work Phone: aPTT Coag (Bld) [Time]on aPTT Coag (PPP) [Time] 55.6 s High 20.0 - 30.5 s [facility] 30on 02-26-2025 30 Normal [facility] [id number] 02-26-2025 [id number] Normal [facility] [id number] 02-26-2025 [id number] Getting updated therapy notes. Want to skill him at [facility]. Started on IV antibiotics for aspiration pneumonia. Continues on a heparin gtt. . [id number] Updated notes sent to [facility] per [facility] request. Await review and response regarding ability to accept. TCC notified. 36on 02-26-2025 36 Normal [facility] CBC W/Diff, Automatedon 06-0 Absolute Neut Normal 2.0-7.7 [facility] Comment on above: Order Comment: 413.2 Result Comment: KIMBER ENT DISCHARGED Performed By: #### L 300.3900 #### [facility] [address] [place], [address] HCT Normal 40-54 [facility] Comment on above: Order Comment: 413.2 Result Comment: KIMBER ENT DISCHARGED Performed By: #### L 300.3900 #### [facility] [address] [place], [address] HGB Normal 13.0-16.5 [facility] Comment on above: Order Comment: 413.2 Result Comment: KIMBER ENT DISCHARGED Performed By: #### L [id number] #### [facility] [address] [place], [address] MCH Normal 27.0-32.0 [facility] Comment on above: Order Comment: 413.2 Result Comment: KIMBER ENT DISCHARGED Performed By: #### L 300.3900 #### [facility] [address] [place], [address] MCHC Normal 32-36 [facility] Comment on above: Order Comment: 413.2 Result Comment: KIMBER ENT DISCHARGED Performed By: #### L 300.3900 #### [facility] [address] [place], [address] MCV Normal 80-94 [facility] Comment on above: Order Comment: 413.2 Result Comment: KIMBER ENT DISCHARGED Performed By: #### L 300.3900 #### [facility] [address] [place], [address] NEUT% Normal 47-70 [facility] Comment on above: Order Comment: 413.2 Result Comment: KIMBER ENT DISCHARGED Performed By: #### L 300.3900 #### [facility] [address] [place], [address] PLT Normal 150-450 [facility] Comment on above: Order Comment: 413.2 Result Comment: KIMBER ENT DISCHARGED Performed By: #### L 300.3900 #### [facility] [address] [place], [address] RBC Normal 4.6-6.2 [facility] Comment on above: Order Comment: 413.2 Result Comment: KIMBER ENT DISCHARGED Performed By: #### L 300.3900 #### [facility] [address] [place], [address] RDW CV Normal 11.6-14.6 [facility] Comment on above: Order Comment: 413.2 Result Comment: KIMBER ENT DISCHARGED Performed By: #### L 300.3900 #### [facility] [address] [place], [address] RDW SD Normal 35.1-43.9 [facility] Comment on above: Order Comment: 413.2 Result Comment: KIMBER ENT DISCHARGED Performed By: #### L 300.3900 #### [facility] [address] [place], [address] WBC Normal 4.4-11.0 [facility] Comment on above: Order Comment: 413.2 Result Comment: KIMBER ENT DISCHARGED Performed By: #### L 300.3900 #### [facility] [address] [place], [address] Comprehensive Metabolic Prof ilon 02-26-2025 ALB Normal 3.5-5.0 [facility] Comment on above: Order Comment: 413.2 Result Comment: KIMBER ENT DISCHARGED Performed By: #### L 300.3900 #### [facility] [address] [place], [address] ALK PHOS Normal 40-129 [facility] Comment on above: Order Comment: 413.2 Result Comment: KIMBER ENT DISCHARGED Performed By: #### L 300.3900 #### [facility] [address] [place], [address] ALT Normal <=46 [facility] Comment on above: Order Comment: 413.2 Result Comment: KIMBER ENT DISCHARGED Performed By: #### L 300.3900 #### [facility] [address] [place], [address] AST Normal <=37 [facility] Comment on above: Order Comment: 413.2 Result Comment: KIMBER ENT DISCHARGED Performed By: #### L 300.3900 #### [facility] [address] [place], [address] BUN Normal 4-19 [facility] Comment on above: Order Comment: 413.2 Result Comment: KIMBER ENT DISCHARGED Performed By: #### L 300.3900 #### [facility] [address] [place], [address] BUN/CRE Normal 10-20 [facility] Comment on above: Order Comment: 413.2 Result Comment: KIMBER ENT DISCHARGED Performed By: #### L 300.3900 #### [facility] [address] [place], [address] Calcium Normal 7.6-11.0 [facility] Comment on above: Order Comment: 413.2 Result Comment: KIMBRE ENT DISCHARGED Performed By: #### L 300.3900 #### [facility] [address] [place], [address] CL Normal 98-108 [facility] Comment on above: Order Comment: 413.2 Result Comment: KIMBER ENT DISCHARGED Performed By: #### L 300.3900 #### [facility] [address] [place], [address] CO2 Normal 21.0-32.0 [facility] Comment on above: Order Comment: 413.2 Result Comment: KIMBER ENT DISCHARGED Performed By: #### L 300.3900 #### [facility] [address] [place], [address] CREAT,SERUM Normal 0.70-1.20 [facility] Comment on above: Order Comment: 413.2 Result Comment: KIMBER ENT DISCHARGED Performed By: #### L 300.3900 #### [facility] [address] [place], [address] eGFR Normal >60 [facility] Comment on above: Order Comment: 413.2 Result Comment: KIMBER ENT DISCHARGED Performed By: #### L 300.3900 #### [facility] [address] [place], [address] GAP Normal 5-15 [facility] Comment on above: Order Comment: 413.2 Result Comment: KIMBER ENT DISCHARGED Performed By: #### L 300.3900 #### [facility] [address] [place], [address] GLU Normal 70-99 [facility] Comment on above: Order Comment: 413.2 Result Comment: KIMBER ENT DISCHARGED Performed By: #### L 300.3900 #### [facility] [address] [place], [address] Potassium Normal 3.3-5.1 [facility] Comment on above: Order Comment: 413.2 Result Comment: KIMBER ENT DISCHARGED Performed By: #### L 300.3900 #### [facility] [address] [place], [address] T BILI Normal 0.00-1.30 [facility] Comment on above: Order Comment: 413.2 Result Comment: KIMBER ENT DISCHARGED Performed By: #### L 300.3900 #### [facility] [address] [place], [address] T PROT Normal 5.9-8.4 [facility] Comment on above: Order Comment: 413.2 Result Comment: KIMBER ENT DISCHARGED Performed By: #### L 300.3900 #### [facility] [address] [place], [address] Comprehensive Metabolic Profil Normal 133-145 [facility] Comment on above: Order Comment: 413.2 Result Comment: KIMBER ENT DISCHARGED Performed By: #### L 300.3900 #### [facility] [address] [place], [place], [address] HIGH SENSITIVITY TROPONIN, S ERIAL, SECOND TESTon 02-26-2025 2H TROPONIN HS (SERIAL 2ND TROPONIN) 80 ng/L High <=35 [facility] Comment on above: Result Comment: 2h t roponin (2nd troponin) samples collected between 1h 40 min and 2h and 20 min of the baseline collection time can be utilized to interpret delta troponins as per [facility] algorithms. Samples collected outside this timeframe need to be interpreted clinically.Rising or falling troponin delta between 2 ??? 15 ng/L as compared to baseline value requires a 3rd serial troponin Performed By: #### L [id number] ####Weather Strip Mechanic: DOMENICA JARA ([id number])[facility] ([facility])[address] [place] [address] HIGH SENSITIVITY TROPONIN, S ERIAL, THIRD TESTon 02-26-2025 4H TROPONIN HS (SERIAL 3RD TROPONIN) 75 ng/L High <=35 [facility] Comment on above: Result Comment: 4h t roponin (3rd troponin) samples collected between 1h 40 min and 2h and 20 min of the 2h troponin collection time can be utilized to interpret delta troponins as per [facility] algorithms. Samples collected outside this timeframe need to be interpreted clinically.Rising or falling troponin delta between 2 ??? 15 ng/L as compared to 2h troponin valuerequires further evaluation. Performed By: #### L [id number] ####Weather Strip Mechanic: DOMENICA JARA ([id number])[facility] ([facility])[address] [place] [address] Laboratory - Coagulationon 0 02-26-2025 PT Coag (Bld) [Time] 13.5 s High 9.0 - 12.0 s [facility] No Panel Informationon 02-26 4h Troponin HS (Serial 3rd Troponin) 75 ng/L High NINF - 35 ng/L [facility] Interpretation and review of laboratory results Abnormal [facility] 2h Troponin HS (Serial 2nd Troponin) 80 ng/L High NINF - 35 ng/L [facility] Interpretation and review of laboratory results Abnormal [facility] Interpretation and review of laboratory results Abnormal [facility] Troponin HS Serial Baseline 84 ng/L High NINF - 35 ng/L [facility] Interpretation and review of laboratory results Abnormal [facility] PT Coag (Bld) [Time]on 02-26 INR Coag (PPP) [Relative time] 1.3 {INR} High 0.9 - 1.1 [facility] Progress Noteon 02-26-2025 Progress Note [facility] Note Normal [facility] Progress Note Normal [facility] Note Normal [facility] Note Normal [facility] Progress Note Normal [facility] Prothrombin Time w/INRon INR Normal [facility] Comment on above: Order Comment: 413.2 Result Comment: KIMBER ENT DISCHARGED Performed By: #### L 300.3900 #### [facility] [address] [place], [place], [address] PROTIME Normal 11.7-14.9 [facility] Comment on above: Order Comment: 413.2 Result Comment: KIMBER ENT DISCHARGED Performed By: #### L 300.3900 #### [facility] [address] [place], [place], [address] aPTT Coag (Bld) [Time]on aPTT Coag (PPP) [Time] 48.2 s High 20.0 - 30.5 s [facility] 30on 02-25-2025 30 Normal [facility] 30 Normal [facility] APTTon 02-25-2025 aPTT Coag (Bld) [Time] 48.2 s High 20.0-30.5 [facility] Comment on above: Result Comment: ORDE R COMMENTS:NOTE: The therapeutic time for Heparin anticoagulation, based on Xa activity inhibition, is an APTT of 46-80 seconds. Performed By: #### L [id number], [id number] ####Weather Strip Mechanic: DOMENICA JARA ([id number])[facility])[address] [place] [address] aPTT Coag (Bld) [Time] 49.5 s High 20.0-30.5 [facility] Comment on above: Result Comment: ARPAN Kaplan COMMENTS:NOTE: The therapeutic time for Heparin anticoagulation, based on Xa activity inhibition, is an APTT of 46-80 seconds. Performed By: #### L [id number], [id number] ####Weather Strip Mechanic: DOMENICA JARA ([id number])[facility])[address] [place] [address] CBC (HEMOGRAM)on 02-25-2025 Erythrocyte distribution width (RBC) [Ratio] 19.9 % High 11.5-15.0 [facility] Comment on above: Performed By: #### L [id number] ####Weather Strip Mechanic: DOMENICA JARA ([phone])[facility])[address] [place] [address] Hematocrit (Bld) [Volume fraction] 24.1 % Low 40.0-52.0 [facility] Comment on above: Performed By: #### L [id number] ####Weather Strip Mechanic: DOMENICA JARA ([id number])[facility])[address] [place] [address] Hemoglobin (Bld) [Mass/Vol] 7.6 g/dL Low 13.0-18.0 [facility] Comment on above: Performed By: #### L [id number] ####Weather Strip Mechanic: DOMENICA JARA ([id number])[facility])[address] [place] [address] MCH (RBC) [Entitic mass] 29.3 pg Normal 26.0-34.0 [facility] Comment on above: Performed By: #### L [id number] ####Weather Strip Mechanic: DOMENICA JARA ([id number])[facility])[address] [place] [address] MCHC 31.5 % Normal 30.5-36.0 [facility] Comment on above: Performed By: #### L [id number] ####Weather Strip Mechanic: DOMENICA JARA ([id number])[facility])[address] [place] [address] MCV (RBC) [Entitic vol] 93.1 fL Normal 77.0-99.0 [facility] Comment on above: Performed By: #### L [id number] ####Weather Strip Mechanic: DOMENICA JARA ([id number])[facility])[address] [place] [address] Platelet mean volume (Bld) [Entitic vol] 8.9 fL Low 9.0-12.7 [facility] Comment on above: Performed By: #### L [id number] ####Weather Strip Mechanic: DOMENICA JARA ([id number])[facility])[address] [place] [address] Platelets (Bld) [#/Vol] 280 10*3/uL Normal 140-440 [facility] Comment on above: Performed By: #### L [id number] ####Weather Strip Mechanic: DOMENICA JARA ([id number])[facility])[address] [place] [address] RBC (Bld) [#/Vol] 2.59 10*6/uL Low 4.40-5.90 [facility] Comment on above: Performed By: #### L [id number] ####Weather Strip Mechanic: DOMENICA JARA ([id number])[facility])[address] [place] [address] WBC (Bld) [#/Vol] 7.5 10*3/uL Normal 3.6-10.7 [facility] Comment on above: Performed By: #### L [id number] ####Weather Strip Mechanic: DOMENICA JARA ([phone])[facility])[address] [place] [address] CBC panel Auto (Bld)on 02-25 Erythrocyte distribution width (RBC) [Ratio] 19.9 % High 11.5 - 15.0 % [facility] Hematocrit (Bld) [Volume fraction] 24.1 % Low 40.0 - 52.0 % [facility] Hemoglobin (Bld) [Mass/Vol] 7.6 g/dL Low 13.0 - 18.0 g/dL [facility] Interpretation and review of laboratory results Abnormal [facility] MCH (RBC) [Entitic mass] 29.3 pg 26. 0 - 34.0 pg [facility] MCHC (RBC) [Mass/Vol] 31.5 % 30.5 - 36.0 % [facility] MCV (RBC) [Entitic vol] 93.1 fL 77.0 - 99.0 fL [facility] Platelet mean volume (Bld) [Entitic vol] 8.9 fL Low 9.0 - 12.7 fL [facility] Platelets (Bld) [#/Vol] 280 10*3/uL 140 - 440 10*3/uL [facility] RBC (Bld) [#/Vol] 2.59 10*6/uL Low 4.40 - 5.9 0 10*6/uL [facility] WBC (Bld) [#/Vol] 7.5 10*3/uL 3.6 - 10.7 10*3/uL [facility] HIGH SENSITIVITY TROPONIN, S ERIAL BASELINEon 02-25-2025 TROPONIN HS SERIAL BASELINE 84 ng/L High <=35 [facility] Comment on above: Result Comment: In i ndividuals presenting with symptoms > 2h, a baseline troponin <= 5 ng/L suggests acutecardiac injury is unlikely and further serial testing is generally not indicated. Performed By: #### L [id number] ####Weather Strip Mechanic: DOMENICA JARA ([id number])[facility] ([facility])[address] [place] [address] Laboratory - Coagulationon 0 02-25-2025 PT Coag (Bld) [Time] 13.7 s High 9.0 - 12.0 s [facility] No Panel Informationon 02-25 Interpretation and review of laboratory results Abnormal [facility] Nursing Noteon 02-25-2025 Nursing Note 2739- Notified Dr. Hathaway of patient complaint of SOB and worsening chest pain that he described as dull and tight. Vitals WDL. STAT EKG ordered, patient given Nitrostat, and troponin sent down. 2330- Notified POLICY CHANGE CLERK to assess the patient. Normal [facility] PROTHROMBIN TIMEon 02-25- 5 INR Coag (PPP) [Relative time] 1.3 {INR} High 0.9-1.1 [facility] Comment on above: Result Comment: Vaughn mmended [...] Myocardial Infarction Performed By: #### Tameka AB325, [id number] ####Weather Strip Mechanic: DOMENICA JARA ([id number])[address] PT Coag (PPP) [Time] 13.5 s High 9.0-12.0 [facility] Comment on above: Performed By: #### Tameka AB325, [id number] ####Weather Strip Mechanic: DOMENICA [id number])[address] INR Coag (PPP) [Relative time] 1.3 {INR} High 0.9-1.1 [facility] Comment on above: Result Comment: Vaughn mmended [...] Myocardial Infarction Performed By: #### L [id number], [id number] ####Weather Strip Mechanic: DOMENICA [id number])[address] [place] [address] [place] PT Coag (PPP) [Time] 13.7 s High 9.0-12.0 [facility] Comment on above: Performed By: #### L [id number], [id number] ####Weather Strip Mechanic: DOMENICA JARA ([id number])[facility] [place] [address] PT Coag (Bld) [Time]on 02-25 INR Coag (PPP) [Relative time] 1.3 {INR} High 0.9 - 1.1 [facility] Progress Noteon 02-25-[address] [facility] Progress Note Normal [facility] Progress Note Normal [facility] Progress Note Normal [facility] aPTT Coag (Bld) [Time]on aPTT Coag (PPP) [Time] 49.5 s High 20.0 - 30.5 s [facility] 30on 02-24-2025 30 Normal [facility] 30 Normal [facility] APTTon 02-24-2025 aPTT Coag (Bld) [Time] 54.7 s High 20.0-30.5 [facility] Comment on above: Result Comment: ARPAN Kaplan COMMENTS:NOTE: The therapeutic time for Heparin anticoagulation, based on Xa activity inhibition, is an APTT of 46-80 seconds. Performed By: #### L [id number] ####Weather Strip Mechanic: DOMENICA JARA ([id number])[facility] ([facility])[address] [place] [address] [place] aPTT Coag (Bld) [Time] 61.0 s High 20.0-30.5 [facility] Comment on above: Result Comment: ARPAN Kaplan COMMENTS:NOTE: The therapeutic time for Heparin anticoagulation, based on Xa activity inhibition, is an APTT of 46-80 seconds. Performed By: #### L AB320, [id number] ####Weather Strip Mechanic: DOMENICA JARA ([id number])[facility] ([facility])[address] [place] [address] [place] Bacteria identified Aer cx N om (Lower resp)Ordered By: Corey Pabon on 02-24-2025 Gram Stain Result Many Polymorphonuclear leukocytes per low power field Abnormal [facility] Gram Stain Result Few Epithelial cells per low power field Abnormal [facility] Gram Stain Result Positive Ab[facility] Gram Stain Result Negative Abnormal [facility] Gram Stain Result Few Yeast Abnormal [facility] Interpretation and review of laboratory results Abnormal [facility] HBV surface Ab IA Qnon 02-24 [facility] HBV surface Ag IA Qlon 02-24 Interpretation and review of laboratory results Normal [facility] HEPATITIS B SURFACE ANTIBODY on 02-24-2025 HEPATITIS B VIRUS SURFACE AB <8.0 Normal [facility] Comment on above: Result Comment: ARPAN R COMMENTS:Interpretation:<8.0 Non-Reactive8.0-11.9 Equivocal>= 12.0 Ab DetectedNote: If an equivocal result is interpreted, an antibody status is unable to be determined. Collect new specimen if clinically indicated. Performed By: #### Tameka AB472, [id number] ####Weather Strip Mechanic: DOMENICA JRAA ([id number])[facility] [place] [address] HEPATITIS B SURFACE ANTIGENo n 02-24-2025 HEPATITIS B VIRUS SURFACE AG Not detected Normal Not Detected [facility] Comment on above: Performed By: #### Tameka AB472, [id number] ####Weather Strip Mechanic: DOMENICA JARA ([id number])[facility] ([facility])[address] [place] [address] Laboratory - Coagulationon 0 02-24-2025 PT Coag (Bld) [Time] 13.5 s High 9.0 - 12.0 s [facility] Laboratory - Drug toxicology on 02-24-2025 Vancomycin trough [Mass/Vol] 23.4 ug/mL [facility] Laboratory - Microbiology an d Antimicrobial susceptibilityon 02-24-2025 HBV surface Ab IA Qn mIU/mL [facility] HBV surface Ag IA Ql Not detected Not Detected [facility] Laboratory - Microbiology an d Antimicrobial susceptibilityOrdered By: Corey Pabon on 02-24-2025 Bacteria identified Aer cx Nom (Lower resp) Few respiratory ila present. [facility] Bacteria identified Aer cx Nom (Lower resp) Moderate Klebsiella oxytoca Abnormal [facility] No Panel Informationon 02-24 [facility] Interpretation and review of laboratory results Abnormal [facility] Nursing Noteon 02-24-2025 Nursing Note Normal [facility] PROTHROMBIN TIMEon INR Coag (PPP) [Relative time] 1.3 {INR} High 0.9-1.1 [facility] Comment on above: Result Comment: Vaughn mmended [...] Myocardial Infarction Performed By: #### Tameka AB320, [id number] ####Weather Strip Mechanic: DOMENICA JARA ([id number])[facility] ([facility])[address] [place] [address] PT Coag (PPP) [Time] 13.5 s High 9.0-12.0 [facility] Comment on above: Performed By: #### Tameka AB320, [id number] ####Weather Strip Mechanic: DOMENICA JARA ([id number])[facility] ([facility])[address] [place] [address] PT Coag (Bld) [Time]on 02-24 INR Coag (PPP) [Relative time] 1.3 {INR} High 0.9 - 1.1 [facility] Progress Noteon 02-24-2025 Progress Note Vancomycin therapy has been discontinued by Hussain Quintana on 02/24. Thank you for the consult. Pharmacy signing off for vancomycin dosing. Marissa Iglesias, PharmD, Date: 02/24/25 Time: 4:08 PM Normal [facility] Progress Note Normal [facility] Progress Note Normal [facility] Progress Note Normal [facility] Progress Note Normal [facility] VANCOMYCIN, AUC TIMED DOSING on 02-24-2025 VANCOMYCIN, AUC 23.4 ug/mL Normal [facility] Comment on above: Result Comment: ARPAN Kaplan COMMENTS:Please draw random level at least >4 hours after the end of hemodialysis.Toxicity is seen at concentrations >80-100 ug/mLTherapeutic (Peak) range: 20-40Therapeutic (Trough) range: 5-10 Performed By: #### L AB39 ####Weather Strip Mechanic: DOMENICA JARA ([id number])[facility] ([facility])[address] [place] [address] Vancomycin trough [Mass/Vol] on 02-24-2025 [facility] aPTT Coag (Bld) [Time]on aPTT Coag (PPP) [Time] 54.7 s High 20.0 - 30.5 s [facility] Interpretation and review of laboratory results Abnormal [facility] aPTT Coag (PPP) [Time] 61 s High 20.0 - 30.5 s [facility] [id number] 02-23-2025 [id number] Normal [facility] 36on 02-23-2025 36 Called LM to call back and schedule CT and hospital follow up with any ARMIN 36 Hello, can we please schedule a 6-week CT scan for this patient and a follow-up appointment after this? Thank you APTTon 02-23-2025 aPTT Coag (Bld) [Time] 49.3 s High 20.0-30.5 [place] Comment on above: Result Comment: ARPAN Kaplan COMMENTS:NOTE: The therapeutic time for Heparin anticoagulation, based on Xa activity inhibition, is an APTT of 46-80 seconds. Performed By: #### L AB325, [id number] ####Weather Strip Mechanic: DOMENICA JARA ([id number])[facility] ([facility])[address] [place] [address] CBC (HEMOGRAM)on 02-23-2025 Erythrocyte distribution width (RBC) [Ratio] 19.7 % High 11.5-15.0 [facility] Comment on above: Performed By: #### L AB294 ####Weather Strip Mechanic: DOMENICA JARA ([id number])[facility])[address] [place] [address] Hematocrit (Bld) [Volume fraction] 27.9 % Low 40.0-52.0 [facility] Comment on above: Performed By: #### L AB294 ####Weather Strip Mechanic: DOMENICA JARA ([id number])[facility])[address] [place] [address] Hemoglobin (Bld) [Mass/Vol] 8.6 g/dL Low 13.0-18.0 [facility] Comment on above: Performed By: #### L AB294 ####Weather Strip Mechanic: DOMENICA JARA ([id number])[facility])[address] [place] [address] MCH (RBC) [Entitic mass] 28.7 pg Normal 26.0-34.0 [facility] Comment on above: Performed By: #### L AB294 ####Weather Strip Mechanic: DOMENICA JARA ([id number])[facility] ([facility])[address] [place] [address] MCHC 30.8 % Normal 30.5-36.0 [facility] Comment on above: Performed By: #### L AB294 ####Weather Strip Mechanic: DOMENICA JARA ([id number])[facility])[address] [place] [address] MCV (RBC) [Entitic vol] 93.0 fL Normal 77.0-99.0 [facility] Comment on above: Performed By: #### L AB294 ####Weather Strip Mechanic: DOMENICA JARA ([id number])[facility])[address] [place] [address] Platelet mean volume (Bld) [Entitic vol] 8.9 fL Low 9.0-12.7 [facility] Comment on above: Performed By: #### L AB294 ####Weather Strip Mechanic: DOMENICA JARA ([id number])[facility])[address] [place] [address] Platelets (Bld) [#/Vol] 316 10*3/uL Normal 140-440 [facility] Comment on above: Performed By: #### L AB294 ####Weather Strip Mechanic: DOMENICA JARA ([id number])[facility])[address] [place] [address] RBC (Bld) [#/Vol] 3.00 10*6/uL Low 4.40-5.90 [facility] Comment on above: Performed By: #### L AB294 ####Weather Strip Mechanic: DOMENICA JARA ([id number])[address] WBC (Bld) [#/Vol] 8.6 10*3/uL Normal 3.6-10.7 [facility] Comment on above: Performed By: #### L AB294 ####Weather Strip Mechanic: DOMENICA JARA ([id number])[address] CBC panel Auto (Bld)on 02-23 Erythrocyte distribution width (RBC) [Ratio] 19.7 % High 11.5 - 15.0 % [facility] Hematocrit (Bld) [Volume fraction] 27.9 % Low 40.0 - 52.0 % [facility] Hemoglobin (Bld) [Mass/Vol] 8.6 g/dL Low 13.0 - 18.0 g/dL [facility] Interpretation and review of laboratory results Abnormal [facility] MCH (RBC) [Entitic mass] 28.7 pg 26. 0 - 34.0 pg [facility] MCHC (RBC) [Mass/Vol] 30.8 % 30.5 - 36.0 % [facility] MCV (RBC) [Entitic vol] 93 fL 77.0 - 99.0 fL [facility] Platelet mean volume (Bld) [Entitic vol] 8.9 fL Low 9.0 - 12.7 fL [facility] Platelets (Bld) [#/Vol] 316 10*3/uL 140 - 440 10*3/uL [facility] RBC (Bld) [#/Vol] 3 10*6/uL Low 4.40 - 5.9 0 10*6/uL [facility] WBC (Bld) [#/Vol] 8.6 10*3/uL 3.6 - 10.7 10*3/uL [facility] COMPREHENSIVE METABOLIC PANE Victor M 02-23-2025 Albumin [Mass/Vol] 1.9 g/dL Low 3.5-5.0 [facility] Comment on above: Performed By: #### Tameka ABAruna, LAB17, [id number] ####Weather Strip Mechanic: DOMENICA JARA ([id number])[facility] ([facility])[address] [place] [address] ALP [Catalytic activity/Vol] 136 U/L Normal 40-150 [facility] Comment on above: Performed By: #### Tameka GIMENEZ, LAB17, [id number] ####Weather Strip Mechanic: DOMENICA JARA ([id number])[facility] ([facility])[address] [place] [address] ALT [Catalytic activity/Vol] 10 U/L Normal <40 [facility] Comment on above: Performed By: #### Tameka GIMENEZ, LAB17, [id number] ####Weather Strip Mechanic: DOMENICA JARA ([id number])[facility] ([facility])[address] [place] [address] Anion gap [Moles/Vol] 11 mmol/L Normal 3-13 [facility] Comment on above: Performed By: #### Tameka GIMENEZ, LAB17, [id number] ####Weather Strip Mechanic: DOMENICA JARA ([id number])[facility])[address] [place] [address] AST [Catalytic activity/Vol] 37 U/L High <34 [facility] Comment on above: Performed By: #### Tameka ABAruna, LAB17, [id number] ####Weather Strip Mechanic: DOMENICA JARA ([id number])[facility])[address] [place] [address] Bilirubin [Mass/Vol] 0.6 mg/dL Normal <1.2 [facility] Comment on above: Performed By: #### L AB113, LAB17, [id number] ####Weather Strip Mechanic: DOMENICA JARA ([id number])[facility] [place] [address] Calcium [Mass/Vol] 9.2 mg/dL Normal 8.4-10.2 [facility] Comment on above: Performed By: #### L AB113, LAB17, [id number] ####Weather Strip Mechanic: DOMENICA JARA ([id number])[facility] [place] [address] Chloride [Moles/Vol] 99 mmol/L Normal 98-107 [facility] Comment on above: Performed By: #### L AB113, LAB17, [id number] ####Weather Strip Mechanic: DOMENICA JARA ([id number])[facility] [place] [address] CO2 [Moles/Vol] 25 mmol/L Normal 22-29 [facility] Comment on above: Performed By: #### Tameka ABAruna, LAB17, [id number] ####Weather Strip Mechanic: DOMENICA JARA ([id number])[facility] [place] [address] Creatinine [Mass/Vol] 2.78 mg/dL High 0.72-1.25 [facility] Comment on above: Performed By: #### Tameka AB113, LAB17, [id number] ####Weather Strip Mechanic: DOMENICA JARA ([id number])[facility] [place] [address] [place] GLOMERULAR FILTRATION RATE ML/MIN/1.73 SQ M.PREDICTED 25.4 mL/min/1.73m*2 Low >60.0 [facility] Comment on above: Result Comment: Calc ulation based on the Chronic Kidney Disease Epidemiology Collaboration (CKD-EPI) equation refit without adjustment for race Performed By: #### L AB113, LAB17, [id number] ####Weather Strip Mechanic: DOMENICA JARA ([id number])[facility] [place] [address] [place] Glucose [Mass/Vol] 110 mg/dL High 74-100 [facility] Comment on above: Performed By: #### L AB113, LAB17, [id number] ####Weather Strip Mechanic: DOMENICA JARA ([id number])[facility])[address] [place] [address] Potassium [Moles/Vol] 4.1 mmol/L Normal 3.5-5.1 [facility] Comment on above: Result Comment: [facility] potassium values may be up to 0.5 mmol/L lower than serum values. Performed By: #### L AB113, LAB17, [id number] ####Weather Strip Mechanic: DOMENICA JARA ([phone])[facility] ([facility])[address] [place] [address] Protein [Mass/Vol] 7.1 g/dL Normal 6.4-8.3 [facility] Comment on above: Performed By: #### Tameka GIMENEZ, LAB17, [id number] ####Weather Strip Mechanic: DOMENICA JARA ([id number])[facility] ([facility])[address] [place] [address] Sodium [Moles/Vol] 135 mmol/L Low 136-145 [facility] Comment on above: Performed By: #### Tameka ABAruna, LAB17, [id number] ####Weather Strip Mechanic: DOMENICA JARA ([id number])[facility] ([facility])[address] [place] [address] Urea nitrogen [Mass/Vol] 21 mg/dL Normal 9-23 [facility] Comment on above: Performed By: #### L AB113, LAB17, [id number] ####Weather Strip Mechanic: DOMENICA JARA ([id number])[facility])[address] [place] [address] Comprehensive metabolic 1998 panelOrdered By: Jarred José on 02-23-2025 Albumin [Mass/Vol] 1.9 g/dL Low 3.5 - 5.0 g/dL [facility] ALP [Catalytic activity/Vol] 136 U/L 40 - 150 U/L [facility] ALT [Catalytic activity/Vol] 10 U/L NINF - 40 U/L [facility] Anion gap [Moles/Vol] 11 mmol/L 3 - 13 mmol/L [facility] AST [Catalytic activity/Vol] 37 U/L High NINF - 34 U/L [facility] Bilirubin [Mass/Vol] 0.6 mg/dL NINF - 1.2 mg/dL [facility] Calcium [Mass/Vol] 9.2 mg/dL 8.4 - 10. 2 mg/dL [facility] Chloride [Moles/Vol] 99 mmol/L 98 - 10 7 mmol/L [facility] CO2 [Moles/Vol] 25 mmol/L 22 - 29 mmol/L [facility] Creatinine [Mass/Vol] 2.78 mg/dL High 0.72 - 1.25 mg/dL [facility] GFR/1.73 sq M.predicted (S/P/Bld) [Vol rate/Area] 25.4 mL/min Low - PINF [facility] Glucose [Mass/Vol] 110 mg/dL High 74 - 100 mg/dL [facility] Interpretation and review of laboratory results Abnormal [facility] Potassium [Moles/Vol] 4.1 mmol/L 3.5 - 5.1 mmol/L [facility] Protein [Mass/Vol] 7.1 g/dL 6.4 - 8.3 g/dL [facility] Sodium [Moles/Vol] 135 mmol/L Low 136 - 145 mmol/L [facility] Urea nitrogen [Mass/Vol] 21 mg/dL 9 - 23 mg/d L [facility] Consulton 02-23-2025 Consult Normal [facility] Laboratory - Chemistry and C hemistry - challengeon 02-23-2025 Magnesium [Mass/Vol] 2 mg/dL 1.6 - 2 .6 mg/dL [facility] Laboratory - Coagulationon 0 02-23-2025 PT Coag (Bld) [Time] 14 s High 9.0 - 12.0 s [facility] MAGNESIUMon 02-23-2025 Magnesium [Mass/Vol] 2.0 mg/dL Normal 1.6-2.6 [facility] Comment on above: Result Comment: ARPAN Kaplan COMMENTS:Higher values can be expected in females during menses. Performed By: #### L AB113, LAB17, [id number] ####Weather Strip Mechanic: DOMENICA JARA ([id number])[facility])[address] [place] [address] Magnesium [Mass/Vol]on 02-23 [facility] No Panel Informationon 02-23 Interpretation and review of laboratory results Normal [facility] Interpretation and review of laboratory results Abnormal [facility] Nursing Noteon 02-23-2025 Nursing Note Normal [facility] Nursing Note Normal [facility] PHOSPHORUSon 02-23-2025 Phosphate [Mass/Vol] 2.6 mg/dL Normal 2.3-4.7 [facility] Comment on above: Performed By: #### L AB113, LAB17, [id number] ####Weather Strip Mechanic: DOMENICA JARA ([phone])[facility])[address] [place] [address] PROTHROMBIN TIMEon INR Coag (PPP) [Relative time] 1.3 {INR} High 0.9-1.1 [facility] Comment on above: Result Comment: Vaughn mmended [...] Myocardial Infarction Performed By: #### L AB325, [id number] ####Weather Strip Mechanic: DOMENICA JARA ([phone])[facility] ([facility])[address] [place] [address] PT Coag (PPP) [Time] 14.0 s High 9.0-12.0 [facility] Comment on above: Performed By: #### L AB325, [id number] ####Weather Strip Mechanic: DOMENICA JARA ([phone])[facility])[address] [place] [address] PT Coag (Bld) [Time]on 02-23 INR Coag (PPP) [Relative time] 1.3 {INR} High 0.9 - 1.1 [facility] [employer] Phosphate [Moles/Vol]on 01-27 Phosphate [Mass/Vol] 2.6 mg/dL 2.3 - 4 .7 mg/dL [facility] Progress Noteon 02-23-2025 Progress [facility] Progress Note [facility] Progress Note [facility] Progress Note Normal [facility] Progress Note Normal [facility] US Heart TransthoracicOrdere d By: Daryn Chowdary on 02-23-2025 Aortic valve Mean systole pressure gradient by US.doppler derived full Bernoulli 10 mmHg [facility] Work Phone: Aortic valve Orifice area by US 3.1 cm2 [facility] Work Phone: Aortic valve Peak systolic flow by US.doppler 1.4 m/s [facility] [employer] Work Phone: Ascending Aorta 3.5 cm [facility] Work Phone: Ascending Aorta Index 1.99 cm/m2 [facility] [employer] Work Phone: AV Area by Peak Velocity 1.3 cm2 [facility] Work Phone: AV Area by VTI 1.5 cm2 [facility] Work Phone: AV AT 66.6 ms [facility] Work Phone: AV Peak Gradient 20 mmHg [facility] Work Phone: AV Peak Velocity 2.3 m/s [facility] He [facility] Work Phone: AV Velocity Ratio 0.39 [facility] Work Phone: AV VTI 39.1 cm [facility] Work Phone: MALU/BSA Peak Velocity 0.7 cm2/m2 [facility] Work Phone: MALU/BSA VTI 0.9 cm2/m2 [facility] Work Phone: E/E' Lateral 21.43 [facility] [employer] Work Phone: E/E' Ratio (Averaged) 25.71 [facility] [employer] Work Phone: E/E' Septal 30 [facility] [employer] Work Phone: Est. RA Pressure 15 mmHg [facility] Work Phone: Fractional Shortening 2D 31 % 28 - 44 % [facility] [employer] Work Phone: Interpretation and review of laboratory results Abnormal [facility] [employer] Work Phone: IVC Diameter 2.5 cm [facility] [employer] Work Phone: IVSd 1.6 cm Abnormal 0.6 - 1.0 cm [facility] [employer] Work Phone: LA Diameter 3.1 cm [facility] [employer] Work Phone: LA Size Index 1.76 cm/m2 [facility] Work Phone: LA Volume 2C 69 mL Abnormal 18 - 58 mL [facility] [employer] Work Phone: LA Volume 4C 84 mL Abnormal 18 - 58 mL [facility] [employer] Work Phone: LA Volume A/L 85 mL [facility] [employer] Work Phone: LA Volume BP 78 mL Abnormal 18 - 58 mL [facility] [employer] Work Phone: LA Volume Index 2C 39 mL/m2 Abnormal 16 - 34 mL/m2 [facility] [employer] [facility] Work Phone: LA Volume Index 4C 48 mL/m2 Abnormal 16 - 34 mL/m2 [facility] [employer] [facility] Work Phone: LA Volume Index A/L 48 mL/m2 16 - 34 mL/m2 [facility] [employer] Work Phone: LA Volume Index BP 44 ml/m2 Abnormal 16 - 34 ml/m2 [facility] [employer] Work Phone: LV E' Lateral Velocity 7 cm/s [place] [facility] [employer] Work Phone: LV E' Septal Velocity 5 cm/s [facility] [employer] Work Phone: LV Mass 2D 201 g 88 - 224 g [facility] [employer] Work Phone: LV Mass 2D Index 114.2 g/m2 49 - 115 g/m2 [facility] [employer] Work Phone: LV RWT Ratio 0.78 [facility] [employer] Work Phone: LVIDd 3.6 cm Abnormal 4.2 - 5.9 cm [facility] Work Phone: LVIDd Index 2.05 cm/m2 [facility] Work Phone: LVIDs 2.5 cm [facility] [employer] Work Phone: LVIDs Index 1.42 cm/m2 [facility] [employer] Work Phone: LVOT Cardiac Output 5.3 liter/minute [facility] [employer] Work Phone: LVOT Diameter 2 cm [facility] [employer] Work Phone: LVOT Mean Gradient 2 mmHg [facility] [employer] Work Phone: LVOT Peak Gradient 3 mmHg [facility] [employer] Work Phone: LVOT Peak Velocity 0.9 m/s [facility] [employer] Work Phone: LVOT Stroke Volume Index 33.4 mL/m2 [facility] [employer] Work Phone: LVOT SV 58.7 ml [facility] [employer] Work Phone: LVOT VTI 18.7 cm [facility] [employer] Work Phone: LVOT:AV VTI Index 0.48 [facility] [employer] Work Phone: LVPWd 1.4 cm Abnormal 0.6 - 1.0 cm [facility] [employer] Work Phone: MV A Velocity 0.97 m/s [facility] Work Phone: MV Area by PHT 3 cm2 [facility] Work Phone: MV Area by VTI 1.3 cm2 [facility] Work Phone: MV E Velocity [...] Work Phone: TR Max Velocity 3.23 m/s [employer] [facility] Work Phone: TR Peak Gradient 42 mmHg [facility] Work Phone: [facility] Work Phone: US Heart Transthoracicon [facility] aPTT Coag (Bld) [Time]on aPTT Coag (PPP) [Time] 49.3 s High 20.0 - 30.5 s [facility] 30on 02-22-2025 30 Normal [facility] [id number] 02-22-2025 [id number] Normal [facility] [id number] Updated notes sent to [facility] via [employer] per [facility] request. Await review and response regarding ability to accept. TCC notified. on 02-22-2025 aPTT Coag (Bld) [Time] 52.1 s High 20.0-30.5 [facility] Comment on above: Result Comment: ARPAN Kaplan COMMENTS:NOTE: The therapeutic time for Heparin anticoagulation, based on Xa activity inhibition, is an APTT of 46-80 seconds. Performed By: #### L AB325 ####Weather Strip Mechanic: DOMENICA JARA ([id number])[address] aPTT Coag (Bld) [Time] 54.9 s High 20.0-30.5 [facility] Comment on above: Result Comment: ARPAN Kaplan COMMENTS:NOTE: The therapeutic time for Heparin anticoagulation, based on Xa activity inhibition, is an APTT of 46-80 seconds. Performed By: #### L AB325, [id number] ####Weather Strip Mechanic: DOMENICA JARA ([phone])[facility])[address] [place] [address] BLOOD CULTUREon 02-22-2025 Bacteria identified Cx Nom (Bld) Comment on above: Performed By: #### L [id number] ####Weather Strip Mechanic: DOMENICA JARA ([id number])[facility])[address] [place] [address] Bacteria identified Cx Nom (Bld) Normal [facility] Comment on above: Performed By: #### L AB462 ####Weather Strip Mechanic: DOMENICA JARA ([id number])[facility])[address] [place] [address] CBC (HEMOGRAM)on 02-22-2025 Erythrocyte distribution width (RBC) [Ratio] 19.4 % High 11.5-15.0 [facility] Comment on above: Performed By: #### L [id number] ####Weather Strip Mechanic: DOMENICA JARA ([id number])[address] Hematocrit (Bld) [Volume fraction] 24.5 % Low 40.0-52.0 [facility] Comment on above: Performed By: #### L [id number] ####Weather Strip Mechanic: DOMENICA JARA ([id number])[address] Hemoglobin (Bld) [Mass/Vol] 7.8 g/dL Low 13.0-18.0 [facility] Comment on above: Performed By: #### L [id number] ####Weather Strip Mechanic: DOMENICA JARA ([id number])[facility])[address] [place] [address] MCH (RBC) [Entitic mass] 29.0 pg Normal 26.0-34.0 [facility] Comment on above: Performed By: #### L [id number] ####Weather Strip Mechanic: DOMENICA JARA ([id number])[address] MCHC 31.8 % Normal 30.5-36.0 [facility] Comment on above: Performed By: #### L AB294 ####Weather Strip Mechanic: DOMENICA JARA ([id number])[facility] ([facility])[address] [place] [address] MCV (RBC) [Entitic vol] 91.1 fL Normal 77.0-99.0 [facility] Comment on above: Performed By: #### L [id number] ####Weather Strip Mechanic: DOMENICA JARA ([id number])[facility])[address] [place] [address] Platelet mean volume (Bld) [Entitic vol] 8.9 fL Low 9.0-12.7 [facility] Comment on above: Performed By: #### L [id number] ####Weather Strip Mechanic: DOMENICA JARA ([id number])[address] Platelets (Bld) [#/Vol] 282 10*3/uL Normal 140-440 [facility] Comment on above: Performed By: #### L [id number] ####Weather Strip Mechanic: DOMENICA JARA ([id number])[facility])[address] [place] [address] RBC (Bld) [#/Vol] 2.69 10*6/uL Low 4.40-5.90 [facility] Comment on above: Performed By: #### L [id number] ####Weather Strip Mechanic: DOMENICA JARA ([id number])[address] WBC (Bld) [#/Vol] 9.0 10*3/uL Normal 3.6-10.7 [facility] Comment on above: Performed By: #### L [id number] ####Weather Strip Mechanic: DOMENICA JARA ([id number])[facility])[address] [place] [address] CBC panel Auto (Bld)on 02-22 Erythrocyte distribution width (RBC) [Ratio] 19.4 % High 11.5 - 15.0 % [facility] Hematocrit (Bld) [Volume fraction] 24.5 % Low 40.0 - 52.0 % [facility] Hemoglobin (Bld) [Mass/Vol] 7.8 g/dL Low 13.0 - 18.0 g/dL [facility] Interpretation and review of laboratory results Abnormal [facility] MCH (RBC) [Entitic mass] 29 pg 26. 0 - 34.0 pg [facility] MCHC (RBC) [Mass/Vol] 31.8 % 30.5 - 36.0 % [facility] MCV (RBC) [Entitic vol] 91.1 fL 77.0 - 99.0 fL [facility] Platelet mean volume (Bld) [Entitic vol] 8.9 fL Low 9.0 - 12.7 fL [facility] Platelets (Bld) [#/Vol] 282 10*3/uL 140 - 440 10*3/uL [facility] RBC (Bld) [#/Vol] 2.69 10*6/uL Low 4.40 - 5.9 0 10*6/uL [facility] WBC (Bld) [#/Vol] 9 10*3/uL 3.6 - 10.7 10*3/uL [facility] COMPREHENSIVE METABOLIC PANE Victor M 02-22-2025 Albumin [Mass/Vol] 1.8 g/dL Low 3.5-5.0 [facility] Comment on above: Performed By: #### L VARGHESE, LAB17, [id number] ####Weather Strip Mechanic: DOMENICA JARA ([id number])[address] ALP [Catalytic activity/Vol] 120 U/L Normal 40-150 [facility] Comment on above: Performed By: #### L VARGHESE, LAB17, [id number] ####Weather Strip Mechanic: DOMENICA JARA ([id number])[facility] ([facility])[address] [place] [address] ALT [Catalytic activity/Vol] 9 U/L Normal <40 [facility] Comment on above: Performed By: #### L AB103, LAB17, [id number] ####Weather Strip Mechanic: DOMENICA JARA ([id number])[facility])[address] [place] [address] Anion gap [Moles/Vol] 13 mmol/L Normal 3-13 [facility] Comment on above: Performed By: #### L AB103, LAB17, [id number] ####Weather Strip Mechanic: DOMENICA JARA ([id number])[facility] ([facility])[address] [place] [address] AST [Catalytic activity/Vol] 35 U/L High <34 [facility] Comment on above: Performed By: #### L AB103, LAB17, [id number] ####Weather Strip Mechanic: DOMENICA JARA ([id number])[facility] ([facility])[address] [place] [address] Bilirubin [Mass/Vol] 0.6 mg/dL Normal <1.2 [facility] Comment on above: Performed By: #### Tameka ABRadha, LAB17, [id number] ####Weather Strip Mechanic: DOMENICA JARA ([phone])[facility] ([facility])[address] [place] [address] Calcium [Mass/Vol] 9.2 mg/dL Normal 8.4-10.2 [facility] Comment on above: Performed By: #### Tameka AB103, LAB17, [id number] ####Weather Strip Mechanic: DOMENICA JARA ([id number])[facility] ([facility])[address] [place] [address] Chloride [Moles/Vol] 94 mmol/L Low 98-107 [facility] Comment on above: Performed By: #### Tameka ABRadha, LAB17, [id number] ####Weather Strip Mechanic: DOMENICA JARA ([id number])[facility] ([facility])[address] [place] [address] [place] CO2 [Moles/Vol] 25 mmol/L Normal 22-29 [facility] Comment on above: Performed By: #### L AB103, LAB17, [id number] ####Weather Strip Mechanic: DOMENICA JARA ([id number])[facility])[address] [place] [address] Creatinine [Mass/Vol] 3.99 mg/dL High 0.72-1.25 [facility] Comment on above: Performed By: #### L AB103, LAB17, [id number] ####Weather Strip Mechanic: DOMENICA JARA ([id number])[facility])[address] [place] [address] GLOMERULAR FILTRATION RATE ML/MIN/1.73 SQ M.PREDICTED 16.5 mL/min/1.73m*2 Low >60.0 [facility] Comment on above: Result Comment: Calc ulation based on the Chronic Kidney Disease Epidemiology Collaboration (CKD-EPI) equation refit without adjustment for race Performed By: #### Tameka KWONG, LAB17, [id number] ####Weather Strip Mechanic: DOMENICA JARA ([id number])[facility])[address] [place] [address] Glucose [Mass/Vol] 121 mg/dL High 74-100 [facility] Comment on above: Performed By: #### Tameka ISAAC103, LAB17, [id number] ####Weather Strip Mechanic: DOMENICA JARA ([id number])[facility])[address] [place] [address] Potassium [Moles/Vol] 3.4 mmol/L Low 3.5-5.1 [facility] Comment on above: Result Comment: [facility] potassium values may be up to 0.5 mmol/L lower than serum values. Performed By: #### Tameka KWONG, LAB17, [id number] ####Weather Strip Mechanic: DOMENICA JARA ([id number])[facility])[address] [place] [address] Protein [Mass/Vol] 6.7 g/dL Normal 6.4-8.3 [facility] Comment on above: Performed By: #### L AB103, LAB17, [id number] ####Weather Strip Mechanic: DOMENICA JARA ([phone])[facility])[address] [place] [address] [place] Sodium [Moles/Vol] 132 mmol/L Low 136-145 [facility] Comment on above: Performed By: #### L AB103, LAB17, [id number] ####Weather Strip Mechanic: DOMENICA JARA ([id number])[facility])[address] [place] [address] [place] Urea nitrogen [Mass/Vol] 36 mg/dL High 9-23 [facility] Comment on above: Performed By: #### L AB103, LAB17, [id number] ####Weather Strip Mechanic: DOMENICA JARA ([id number])[facility] ([facility])[address] [place] [address] Comprehensive metabolic 1998 panelOrdered By: Michelle Olmstead on 02-22-2025 Albumin [Mass/Vol] 1.8 g/dL Low 3.5 - 5.0 g/dL [facility] ALP [Catalytic activity/Vol] 120 U/L 40 - 150 U/L [facility] ALT [Catalytic activity/Vol] 9 U/L NINF - 40 U/L [facility] Anion gap [Moles/Vol] 13 mmol/L 3 - 13 mmol/L [facility] AST [Catalytic activity/Vol] 35 U/L High NINF - 34 U/L [facility] Bilirubin [Mass/Vol] 0.6 mg/dL NINF - 1.2 mg/dL [facility] Calcium [Mass/Vol] 9.2 mg/dL 8.4 - 10. 2 mg/dL [facility] Chloride [Moles/Vol] 94 mmol/L Low 98 - 10 7 mmol/L [facility] CO2 [Moles/Vol] 25 mmol/L 22 - 29 mmol/L [facility] Creatinine [Mass/Vol] 3.99 mg/dL High 0.72 - 1.25 mg/dL [facility] GFR/1.73 sq M.predicted (S/P/Bld) [Vol rate/Area] 16.5 mL/min Low - PINF [facility] Glucose [Mass/Vol] 121 mg/dL High 74 - 100 mg/dL [facility] Interpretation and review of laboratory results Abnormal [facility] Potassium [Moles/Vol] 3.4 mmol/L Low 3.5 - 5.1 mmol/L [facility] Protein [Mass/Vol] 6.7 g/dL 6.4 - 8.3 g/dL [facility] Sodium [Moles/Vol] 132 mmol/L Low 136 - 145 mmol/L [facility] Urea nitrogen [Mass/Vol] 36 mg/dL High 9 - 23 mg/d L [facility] Consulton 02-22-2025 Consult Normal [facility] Consult Normal [facility] Consult Normal [facility] LEGIONELLA AND STREPTOCOCCUS URINE ANTIGENon 02-22-2025 LEGIONELLA AND STREPTOCOCCUS URINE ANTIGEN Normal [facility] Comment on above: Performed By: #### L [id number] ####Weather Strip Mechanic: DOMENICA JARA ([id number])[facility] ([facility])[address] [place] [address] Laboratory - Chemistry and C hemistry - challengeon 02-22-2025 Magnesium [Mass/Vol] 2.2 mg/dL 1.6 - 2 .6 mg/dL [facility] Laboratory - Coagulationon 0 02-22-2025 PT Coag (Bld) [Time] 14.9 s High 9.0 - 12.0 s [facility] Laboratory - Drug toxicology on 02-22-2025 Vancomycin [Mass/Vol] 12.6 ug/mL [facility] MAGNESIUMon 02-22-2025 Magnesium [Mass/Vol] 2.2 mg/dL Normal 1.6-2.6 [facility] Comment on above: Result Comment: ARPAN Kaplan COMMENTS:Higher values can be expected in females during menses. Performed By: #### L AB103, LAB17, [id number] ####Weather Strip Mechanic: DOMENICA JARA ([id number])[facility] ([facility])[address] [place] [address] MRSA BY PCRon 02-22-2025 MRSA BY PCR Normal [facility] Comment on above: Performed By: #### L [id number] ####Weather Strip Mechanic: DOMENICA JARA ([id number])[facility] ([facility])[address] [place] [address] MRSA DNA EMMANUEL+probe Ql (Nose) on 02-22-2025 Interpretation and review of laboratory results Normal [facility] mecA gene Not detected Not Detected [facility] Staphylococcus aureus Not detected Not Detected [facility] Magnesium [Mass/Vol]on 02-22 [facility] No Panel Informationon 02-22 [facility] Interpretation and review of laboratory results Normal [facility] Interpretation and review of laboratory results Abnormal [facility] No Panel InformationOrdered By: Lorin Bryant on 02-22-2025 Interpretation and review of laboratory results Normal [facility] Legionella pneumophila Ag Not detected Not Detected [facility] Streptococcus pneumoniae Ag Not detected Not Detected [facility] Nursing Noteon 02-22-2025 Nursing Note Pt keeps ordering door dash items. Have explained to pt on multiple occasions that staff cannot leave floor to get items and that it is after hours and door dashers most likely will not be allowed up onto the floors. Normal [facility] Nursing Note Normal [facility] Nursing Note Normal [facility] PHOSPHORUSon 02-22-2025 Phosphate [Mass/Vol] 3.2 mg/dL Normal 2.3-4.7 [facility] Comment on above: Performed By: #### L AB103, LAB17, [id number] ####Weather Strip Mechanic: DOMENICA JARA ([id number])[facility] [place] [address] PNEUMONIA PCR PANELon 2024 PNEUMONIA PCR PANEL Normal [facility] Comment on above: Performed By: #### L [id number] ####Weather Strip Mechanic: DOMENICA JARA ([phone])[facility] ([facility])[address] [place] [address] PROTHROMBIN TIMEon INR Coag (PPP) [Relative time] 1.4 {INR} High 0.9-1.1 [facility] Comment on above: Result Comment: Vaughn mmended [...] Myocardial Infarction Performed By: #### L AB325, [id number] ####Weather Strip Mechanic: DOMENICA JARA ([id number])[facility] ([facility])[address] [place] [address] PT Coag (PPP) [Time] 14.9 s High 9.0-12.0 [facility] Comment on above: Performed By: #### L AB325, [id number] ####Weather Strip Mechanic: DOMENICA JARA ([id number])[facility] ([facility])[address] [place] [address] PT Coag (Bld) [Time]on 02-22 INR Coag (PPP) [Relative time] 1.4 {INR} High 0.9 - 1.1 [facility] Phosphate [Moles/Vol]on 01-26 Phosphate [Mass/Vol] 3.2 mg/dL 2.3 - 4 .7 mg/dL [facility] Progress Noteon 02-22-2025 Progress Note Normal [facility] Progress [facility] Progress Note [facility] Progress Note OCCUPATIONAL THERAPY [facility] Name/MRN: Jair Snyder ([id number]) Date: 02/22/2025 PT refusing to participate in therapy this AM, will continue to follow and re approach for OT eval. Ro Farnsworth, OT Normal [facility] Progress Note Normal [facility] Progress Note Normal [facility] RESPIRATORY CULTURE AND STAI Non 02-22-2025 RESPIRATORY CULTURE AND STAIN Normal [facility] Comment on above: Performed By: #### L [id number] ####Weather Strip Mechanic: DOMENICA JARA ([id number])[facility] [place] [address] Respiratory pathogens DNA an d RNA panel EMMANUEL+non-probe (Lower resp)Ordered By: Odalys Bustamante on 02-22-2025 Acinetobacter baumannii complex Not detected Not Detected [facility] Adenovirus Not detected Not Detected [facility] Chlamydia pneumoniae Not detected Not Detected [facility] Enterobacter cloacae complex Not detected Not Detected [facility] Escherichia coli Not detected Not Detected [facility] FLUAV RNA EMMANUEL+non-probe Ql (Lower resp) Not detected Not Detected [facility] FLUBV RNA EMMANUEL+non-probe Ql (Lower resp) Not detected Not Detected [facility] Haemophilus influenzae Not detected Not Detecte d [facility] Human Metapneumovirus Not detected Not Detected [facility] Human Rhinovirus/Enterovirus Not detected Not Detected [facility] Interpretation and review of laboratory results Abnormal [facility] Klebsiella (Enterobacter) aerogenes Not detected Not Detected [facility] Klebsiella oxytoca Detected Abnormal Not Detected [facility] Klebsiella pneumoniae Not detected Not Detected [facility] Legionella pneumophila Not detected Not Detecte d [facility] mecA Not detected Not Detected [facility] Moraxella catarrhalis Not detected Not Detected [facility] Mycoplasma pneumoniae Not detected Not Detected [facility] Parainfluenza virus Not detected Not Detected [facility] Proteus spp Not detected Not Detected [facility] Pseudomonas aeruginosa Not detected Not Detecte d [facility] RSV RNA EMMANUEL+probe Ql (Resp) Not detected Not Detected [facility] S. agalactiae Org specific cx Ql (Vag fld) Not detected Not Detected [facility] SARS-CoV-2 (COVID-19) RNA EMMANUEL+non-probe Ql (Nph) Not detected Not Detected [facility] Serratia marcescens Not detected Not Detected [facility] Staphylococcus aureus Detected Abnormal Not Detected [facility] Streptococcus pneumoniae Not detected Not Detec yo [facility] Streptococcus pyogenes Not detected Not Detecte d [facility] VANCOMYCIN, RANDOMon 025 VANCOMYCIN 12.6 ug/mL Normal [facility] Comment on above: Result Comment: ARPAN Kaplan COMMENTS:This level is ordered to be drawn 4 hours post- HD. ThanksToxicity is seen at concentrations >80-100 ug/mLTherapeutic (Peak) range: 20-40Therapeutic (Trough) range: 5-10 Performed By: #### L AB40 ####Weather Strip Mechanic: DOMENICA JARA ([id number])[facility] ([facility])[address] [place] [address] aPTT Coag (Bld) [Time]on aPTT Coag (PPP) [Time] 52.1 s High 20.0 - 30.5 s [facility] Interpretation and review of laboratory results Abnormal [facility] aPTT Coag (PPP) [Time] 54.9 s High 20.0 - 30.5 s [facility] 30on 02-21-2025 30 Normal [facility] [id number] 02-21-2025 [id number] Has dialysis at [facility], [facility]..Tiffanie campbell signed by Kaity Sepulveda RN on 02/21/2025 at 12:54 PM [id number] Normal [facility] 36on 02-21-2025 36 Normal [facility] APTTon 02-21-2025 aPTT Coag (Bld) [Time] 50.3 s High 20.0-30.5 [facility] Comment on above: Result Comment: ARPAN Kaplan COMMENTS:NOTE: The therapeutic time for Heparin anticoagulation, based on Xa activity inhibition, is an APTT of 46-80 seconds. Performed By: #### L AB325 ####Weather Strip Mechanic: DOMENICA JARA ([id number])[facility])[address] [place] [address] aPTT Coag (Bld) [Time] 32.6 s High 20.0-30.5 [facility] Comment on above: Result Comment: ARPAN Kaplan COMMENTS:NOTE: The therapeutic time for Heparin anticoagulation, based on Xa activity inhibition, is an APTT of 46-80 seconds. Performed By: #### L AB325 ####Weather Strip Mechanic: DOMENICA JARA ([phone])[facility] ([facility])[address] [place] [address] BLOOD TYPE AND SCREEN GELon 02-21-2025 ABO GROUPING O Normal [facility] Comment on above: Performed By: #### L AB276 ####Weather Strip Mechanic: DOMENICA JARA ([id number])[facility] ([facility])[address] [place] [address] RH TYPE IN BLOOD Negative Normal [facility] Comment on above: Performed By: #### L AB276 ####Weather Strip Mechanic: DOMENICA JARA ([phone])[facility] ([facility])[address] [place] [address] Blood type and Crossmatch pa freida (Bld)on 02-21-2025 ABO group Nom (Bld) O [facility] Blood group antibody screen GEL Ql Negative [facility] D Ag Ql (RBC) Negative [facility] h [facility] C-REACTIVE PROTEINon 025 CRP [Mass/Vol] 60.3 mg/L High <5.0 [facility] Comment on above: Performed By: #### L AB149, [id number], LAB17, MHI242, [id number] ####Weather Strip Mechanic: DOMENICA JARA ([phone])[facility])[address] [place] [address] CBC (HEMOGRAM)on 02-21-2025 Erythrocyte distribution width (RBC) [Ratio] 19.0 % High 11.5-15.0 [facility] Comment on above: Performed By: #### L AB294 ####Weather Strip Mechanic: DOMENICA JARA ([phone])[facility])[address] [place] [address] Hematocrit (Bld) [Volume fraction] 25.7 % Low 40.0-52.0 [facility] Comment on above: Performed By: #### L AB294 ####Weather Strip Mechanic: DOMENICA JARA ([phone])[address] Hemoglobin (Bld) [Mass/Vol] 8.3 g/dL Low 13.0-18.0 [facility] Comment on above: Performed By: #### L AB294 ####Weather Strip Mechanic: DOMENICA JARA ([phone])[facility])[address] [place] [address] MCH (RBC) [Entitic mass] 29.0 pg Normal 26.0-34.0 [facility] Comment on above: Performed By: #### L AB294 ####Weather Strip Mechanic: DOMENICA JARA ([id number])[facility])[address] [place] [address] MCHC 32.3 % Normal 30.5-36.0 [facility] Comment on above: Performed By: #### L AB294 ####Weather Strip Mechanic: DOMENICA JARA ([id number])[facility])[address] [place] [address] MCV (RBC) [Entitic vol] 89.9 fL Normal 77.0-99.0 [facility] Comment on above: Performed By: #### L AB294 ####Weather Strip Mechanic: DOMENICA JARA ([phone])[facility])[address] [place] [address] Platelet mean volume (Bld) [Entitic vol] 8.9 fL Low 9.0-12.7 [facility] Comment on above: Performed By: #### L AB294 ####Weather Strip Mechanic: DOMENICA JARA ([id number])[facility])[address] [place] [address] Platelets (Bld) [#/Vol] 316 10*3/uL Normal 140-440 [facility] Comment on above: Performed By: #### L AB294 ####Weather Strip Mechanic: DOMENICA JARA ([id number])[facility] [facility])[address] [place] [address] RBC (Bld) [#/Vol] 2.86 10*6/uL Low 4.40-5.90 [facility] Comment on above: Performed By: #### L [id number] ####Weather Strip Mechanic: DOMENICA JARA ([phone])[facility])[address] [place] [address] WBC (Bld) [#/Vol] 7.0 10*3/uL Normal 3.6-10.7 [facility] Comment on above: Performed By: #### L [id number] ####Weather Strip Mechanic: DOMENICA JARA ([phone])[facility])[address] [place] [address] CBC panel Auto (Bld)on 02-21 Erythrocyte distribution width (RBC) [Ratio] 19 % High 11.5 - 15.0 % [facility] Hematocrit (Bld) [Volume fraction] 25.7 % Low 40.0 - 52.0 % [facility] Hemoglobin (Bld) [Mass/Vol] 8.3 g/dL Low 13.0 - 18.0 g/dL [facility] Interpretation and review of laboratory results Abnormal [facility] MCH (RBC) [Entitic mass] 29 pg 26. 0 - 34.0 pg [facility] MCHC (RBC) [Mass/Vol] 32.3 % 30.5 - 36.0 % [facility] MCV (RBC) [Entitic vol] 89.9 fL 77.0 - 99.0 fL [facility] Platelet mean volume (Bld) [Entitic vol] 8.9 fL Low 9.0 - 12.7 fL [facility] Platelets (Bld) [#/Vol] 316 10*3/uL 140 - 440 10*3/uL [facility] RBC (Bld) [#/Vol] 2.86 10*6/uL Low 4.40 - 5.9 0 10*6/uL [facility] WBC (Bld) [#/Vol] 7 10*3/uL 3.6 - 10.7 10*3/uL [facility] COMPREHENSIVE METABOLIC PANE Victor M 02-21-2025 Albumin [Mass/Vol] 2.0 g/dL Low 3.5-5.0 [facility] Comment on above: Performed By: #### L AB149, [id number], LAB17, [id number], [id number] ####Weather Strip Mechanic: DOMENICA JARA ([phone])[facility])[address] [place] [address] ALP [Catalytic activity/Vol] 120 U/L Normal 40-150 [facility] Comment on above: Performed By: #### L AB149, [id number], LAB17, [id number], [id number] ####Weather Strip Mechanic: DOMENICA JARA ([phone])[facility] ([facility])[address] [place] [address] ALT [Catalytic activity/Vol] 8 U/L Normal <40 [facility] Comment on above: Performed By: #### L AB149, [id number], LAB17, ZCL758, PFR114 ####Weather Strip Mechanic: DOMENICA JARA ([id number])[facility] ([facility])[address] [place] [address] Anion gap [Moles/Vol] 12 mmol/L Normal 3-13 [facility] Comment on above: Performed By: #### L AB149, [id number], LAB17, QHG684, OBF006 ####Weather Strip Mechanic: DOMENICA JARA ([phone])[facility] ([facility])[address] [place] [address] AST [Catalytic activity/Vol] 39 U/L High <34 [facility] Comment on above: Performed By: #### L AB149, [id number], LAB17, SYA814, EFN358 ####Weather Strip Mechanic: DOMENICA JARA ([id number])[facility] ([facility])[address] [place] [address] Bilirubin [Mass/Vol] 0.8 mg/dL Normal <1.2 [facility] Comment on above: Performed By: #### L AB149, [id number], LAB17, FYB634, OUQ315 ####Weather Strip Mechanic: DOMENICA JARA ([id number])[facility] ([facility])[address] [place] [address] Calcium [Mass/Vol] 9.3 mg/dL Normal 8.4-10.2 [facility] Comment on above: Performed By: #### L AB149, [id number], LAB17, HWA219, JHG617 ####Weather Strip Mechanic: DOMENICA JARA ([id number])[facility] ([facility])[address] [place] [address] Chloride [Moles/Vol] 91 mmol/L Low 98-107 [facility] Comment on above: Performed By: #### L AB149, [id number], LAB17, JAJ483, VXS840 ####Weather Strip Mechanic: DOMENICA JARA ([phone])[facility] ([facility])[address] [place] [address] CO2 [Moles/Vol] 28 mmol/L Normal 22-29 [facility] Comment on above: Performed By: #### L AB149, [id number], LAB17, OKO759, XXS738 ####Weather Strip Mechanic: DOMENICA JARA ([phone])[facility])[address] [place] [address] Creatinine [Mass/Vol] 2.89 mg/dL High 0.72-1.25 [facility] Comment on above: Performed By: #### L AB149, [id number], LAB17, NNF726, DPL195 ####Weather Strip Mechanic: DOMENICA JARA ([phone])[facility])[address] [place] [address] GLOMERULAR FILTRATION RATE ML/MIN/1.73 SQ M.PREDICTED 24.3 mL/min/1.73m*2 Low >60.0 [facility] Comment on above: Result Comment: Calc ulation based on the Chronic Kidney Disease Epidemiology Collaboration (CKD-EPI) equation refit without adjustment for race Performed By: #### L AB149, [id number], LAB17, RDW244, PAG596 ####Weather Strip Mechanic: DOMENICA JARA ([id number])[facility])[address] [place] [address] Glucose [Mass/Vol] 74 mg/dL Normal 74-100 [facility] Comment on above: Performed By: #### L AB149, [id number], LAB17, PEB046, ZKO391 ####Weather Strip Mechanic: DOMENICA JARA ([phone])[facility])[address] [place] [address] Potassium [Moles/Vol] 3.1 mmol/L Low 3.5-5.1 [facility] Comment on above: Result Comment: [facility] potassium values may be up to 0.5 mmol/L lower than serum values. Performed By: #### L AB149, [id number], LAB17, KUL264, NEA527 ####Weather Strip Mechanic: DOMENICA JARA ([id number])[facility])[address] [place] [address] Protein [Mass/Vol] 6.8 g/dL Normal 6.4-8.3 [facility] Comment on above: Performed By: #### L AB149, [id number], LAB17, BTF360, UOM915 ####Weather Strip Mechanic: DOMENICA JARA ([id number])[facility] ([facility])[address] [place] [address] Sodium [Moles/Vol] 131 mmol/L Low 136-145 [facility] Comment on above: Performed By: #### L AB149, [id number], LAB17, QGI805, NBB129 ####Weather Strip Mechanic: DOMENICA JARA ([id number])[facility] ([facility])[address] [place] [address] Urea nitrogen [Mass/Vol] 29 mg/dL High 9-23 [facility] Comment on above: Performed By: #### L AB149, [id number], LAB17, LYS487, MNW340 ####Weather Strip Mechanic: DOMENICA JARA ([phone])[facility] [place] [address] CRP [Mass/Vol]on 02-21-2025 Interpretation and review of laboratory results Abnormal [facility] Comprehensive metabolic 1998 panelon 02-21-2025 Albumin [Mass/Vol] 2 g/dL Low 3.5 - 5.0 g/dL [facility] ALP [Catalytic activity/Vol] 120 U/L 40 - 150 U/L [facility] ALT [Catalytic activity/Vol] 8 U/L [facility]/L [facility] Anion gap [Moles/Vol] 12 mmol/L 3 - 13 mmol/L [facility] AST [Catalytic activity/Vol] 39 U/L High NINF - 34 U/L [facility] Bilirubin [Mass/Vol] 0.8 mg/dL NINF - 1.2 mg/dL [facility] Calcium [Mass/Vol] 9.3 mg/dL 8.4 - 10. 2 mg/dL [facility] Chloride [Moles/Vol] 91 mmol/L Low 98 - 10 7 mmol/L [facility] CO2 [Moles/Vol] 28 mmol/L 22 - 29 mmol/L [facility] Creatinine [Mass/Vol] 2.89 mg/dL High 0.72 - 1.25 mg/dL [facility] GFR/1.73 sq M.predicted (S/P/Bld) [Vol rate/Area] 24.3 mL/min Low - PINF [facility] Glucose [Mass/Vol] 74 mg/dL 74 - 100 mg/dL [facility] Potassium [Moles/Vol] 3.1 mmol/L Low 3.5 - 5.1 mmol/L [facility] Protein [Mass/Vol] 6.8 g/dL 6.4 - 8.3 g/dL [facility] Sodium [Moles/Vol] 131 mmol/L Low 136 - 145 mmol/L [facility] Urea nitrogen [Mass/Vol] 29 mg/dL High 9 - 23 mg/d L [facility] Consulton 02-21-2025 Consult Normal [facility] Consult Normal [facility] Consult Normal [facility] Consult Normal [facility] Laboratory - Chemistry and C hemistry - challengeon 02-21-2025 CRP [Mass/Vol] 60.3 mg/L High NINF - 5.0 mg/L [facility] Procalcitonin [Mass/Vol] 0.68 ng/mL High PROSPER F - 0.07 ng/mL [facility] Magnesium [Mass/Vol] 2.2 mg/dL 1.6 - 2 .6 mg/dL [facility] MAGNESIUMon 02-21-2025 Magnesium [Mass/Vol] 2.2 mg/dL Normal 1.6-2.6 [facility] Comment on above: Result Comment: ARPAN Kaplan COMMENTS:Higher values can be expected in females during menses. Performed By: #### L AB149, [id number], LAB17, WAD216, ART115 ####Weather Strip Mechanic: DOMENICA JARA ([phone])[address] Magnesium [Mass/Vol]on 02-21 Interpretation and review of laboratory results Normal [facility] No Panel Informationon 02-21 Interpretation and review of laboratory results Abnormal [facility] Nursing Noteon 02-21-2025 Nursing Note Pt ordered [employer] food. Assisted pt to sit up on bedside to eat. Normal [facility] Nursing Note Normal [facility] Nursing Note Pt declining scheduled medications until after RN calls facility to see if he is actively taking those medications" per pt request. [facility]. Normal [facility] Nursing Note Normal [facility] Nursing Note Pt removed NC from nose, stated he doesn't need it anymore. Respiratory Therapy came in to give pt, scheduled breathing treatment, pt stated he didn't need one." Normal [facility] Nursing Note Normal [facility] PHOSPHORUSon 02-21-2025 Phosphate [Mass/Vol] 2.0 mg/dL Low 2.3-4.7 [facility] Comment on above: Performed By: #### L AB149, [id number], LAB17, UQZ458, XIX526 ####Weather Strip Mechanic: DOMENICA JARA ([phone])[facility])[address] [place] [address] PROCALCITONIN TESTon 025 PROCALCITONIN 0.68 ng/mL High <0.07 [facility] Comment on above: Result Comment: ARPAN Kaplan COMMENTS:PCT <0.50 = Low risk of severe sepsis and/or septic shock.PCT >2.00 = High risk of severe sepsis and/or septic shock. Performed By: #### L AB149, [id number], LAB17, ZTM333, LBD559 ####Weather Strip Mechanic: DOMENICA JARA ([phone])[facility])[address] [place] [address] Phosphate [Moles/Vol]on 01-26 Phosphate [Mass/Vol] 2 mg/dL Low 2.3 - 4 .7 mg/dL [facility] Procalcitonin [Mass/Vol]on 0 02-21-2025 Interpretation and review of laboratory results Abnormal [facility] Progress Noteon 02-21-2025 Progress Note PHYSICAL THERAPY [facility] Name/MRN: Jair Snyder ([id number]) Date: 02/21/2025 Pt declined to work with therapy at this time, stating he wanted to eat first. Will reattempt at a later date. Sangeeta Sarabia, PT Normal [facility] Progress Note Normal [facility] Progress Note Normal [facility] RESPIRATORY PATHOGENS PANEL BY PCRon 02-21-2025 RESPIRATORY PATHOGENS PANEL BY PCR Normal [facility] Comment on above: Performed By: #### L [id number] ####Weather Strip Mechanic: DOMENICA JARA ([id number])[facility] ([address] Respiratory pathogens DNA an d RNA panel EMMANUEL+non-probe (Nph)on 02-21-2025 Adenovirus Not detected Not Detected [facility] B. pertussis DNA EMMANUEL+probe Ql (Unsp spec) Not detected Not Detected [facility] ealth Bordetella parapertussis Not detected Not Detec yo [facility] Chlamydia pneumoniae Not detected Not Detected [facility] Coronavirus 229E Not detected Not Detected [facility] Coronavirus HKU1 Not detected Not Detected [facility] Coronavirus NL63 Not detected Not Detected [facility] Coronavirus OC43 Not detected Not Detected [facility] FLUAV RNA EMMANUEL+non-probe Ql (Nph) Not detected Not Detected [facility] FLUBV RNA EMMANUEL+non-probe Ql (Nph) Not detected Not Detected [facility] Human Metapneumovirus Not detected Not Detected [facility] Human Rhinovirus/Enterovirus Not detected Not Detected [facility] Interpretation and review of laboratory results Normal [facility] Mycoplasma pneumoniae Not detected Not Detected [facility] Parainfluenza 1 Not detected Not Detected [facility] Parainfluenza 2 Not detected Not Detected [facility] Parainfluenza 3 Not detected Not Detected [facility] Parainfluenza 4 Not detected Not Detected [facility] Respiratory Syncytial Virus Not detected Not Detected [facility] SARS-CoV-2 (COVID-19) RNA EMMANUEL+non-probe Ql (Nph) Not detected Not Detected [facility] aPTT Coag (Bld) [Time]on aPTT Coag (PPP) [Time] 50.3 s High 20.0 - 30.5 s [facility] Interpretation and review of laboratory results Abnormal [facility] aPTT Coag (PPP) [Time] 32.6 s High 20.0 - 30.5 s [facility] Interpretation and review of laboratory results Abnormal [facility] APTTon 02-20-2025 aPTT Coag (Bld) [Time] 26.2 s Normal 20.0-30.5 [facility] Comment on above: Result Comment: ORDE R COMMENTS:NOTE: The therapeutic time for Heparin anticoagulation, based on Xa activity inhibition, is an APTT of 46-80 seconds. Performed By: #### L AB320, [id number] ####Weather Strip Mechanic: FENG CONSTANTINO ([id number])APPLE DO ([facility])[address] Absolute lymphocyte countOrd ered By: Kayley Melendrez on 02-20-2025 Lymphocytes Auto (Unsp spec) [#/Vol] 1.13 10*3/uL 0.83-4.51 [facility] Absolute neutrophil countOrd ered By: Kayley Melendrez on 02-20-2025 Neutrophils (Bld) [#/Vol] 4.6 10*3/uL 2.0-7.7 [facility] Anion gap in Serum or Plasma Ordered By: Kayley Melendrez on 02-20-2025 Anion gap [Moles/Vol] 12 mmol/L 5-15 [facility] Automated lymphocyte count a s percentage of total leukocytesOrdered By: Kayley Melendrez on 02-20-2025 Lymphocytes/100 WBC Auto (Unsp spec) 16.4 % Low 19-41 [facility] BASIC METABOLIC PANELon 01-26 Anion gap [Moles/Vol] 12 mmol/L Normal 3-13 [facility] Comment on above: Performed By: #### L AB15 ####Weather Strip Mechanic: FENG CONSTANTINO ([id number])APPLE DO ([facility])[address] [place] [address] Calcium [Mass/Vol] 9.6 mg/dL Normal 8.4-10.2 [facility] Comment on above: Performed By: #### L AB15 ####Weather Strip Mechanic: FENG CONSTANTINO ([id number])APPLE DO ([facility])[address] Chloride [Moles/Vol] 92 mmol/L Low 98-107 [facility] Comment on above: Performed By: #### L AB15 ####Weather Strip Mechanic: FENG CONSTANTINO ([id number])[facility] [place] ([facility])[address] CO2 [Moles/Vol] 29 mmol/L Normal 22-29 [facility] Comment on above: Performed By: #### L AB15 ####Weather Strip Mechanic: FENG CONSTANTINO ([id number])[facility] ([facility])[address] Creatinine [Mass/Vol] 2.57 mg/dL High 0.72-1.25 [facility] Comment on above: Performed By: #### L AB15 ####Weather Strip Mechanic: FENG CONSTANTINO ([id number])[facility] ([facility])[address] GLOMERULAR FILTRATION RATE ML/MIN/1.73 SQ M.PREDICTED 27.9 mL/min/1.73m*2 Low >60.0 [facility] Comment on above: Result Comment: Calc ulation based on the Chronic Kidney Disease Epidemiology Collaboration (CKD-EPI) equation refit without adjustment for race Performed By: #### L AB15 ####Weather Strip Mechanic: FENG CONSTANTINO ([id number])[facility] [place] ([facility])[address] Glucose [Mass/Vol] 80 mg/dL Normal 74-100 [facility] Comment on above: Performed By: #### L AB15 ####Weather Strip Mechanic: FNEG CONSTANTINO ([id number])[facility] ([facility])[address] Potassium [Moles/Vol] 3.1 mmol/L Low 3.5-5.1 [facility] Comment on above: Result Comment: [facility] potassium values may be up to 0.5 mmol/L lower than serum values. Performed By: #### L AB15 ####Weather Strip Mechanic: FENG CONSTANTINO ([phone])[facility] ([facility])[address] [place] [address] [place] Sodium [Moles/Vol] 133 mmol/L Low 136-145 [facility] Comment on above: Performed By: #### L AB15 ####Weather Strip Mechanic: FENG FELIXCER ([id number])[facility] ([facility])[address] Urea nitrogen [Mass/Vol] 29 mg/dL High 9-23 [facility] Comment on above: Performed By: #### L AB15 ####Weather Strip Mechanic: FENG DOUGIE ([id number])[facility] ([facility])[address] BUN/creatinine ratioOrdered By: Kayley Melendrez on 02-20-2025 Urea nitrogen/Creatinine [Mass ratio] 11.5 mg/mg 10-20 [facility] Basic metabolic 1998 panelon 02-20-2025 Anion gap [Moles/Vol] 12 mmol/L 3 - 13 mmol/L [facility] Calcium [Mass/Vol] 9.6 mg/dL 8.4 - 10. 2 mg/dL [facility] Chloride [Moles/Vol] 92 mmol/L Low 98 - 10 7 mmol/L [facility] CO2 [Moles/Vol] 29 mmol/L 22 - 29 mmol/L [facility] Creatinine [Mass/Vol] 2.57 mg/dL High 0.72 - 1.25 mg/dL [facility] GFR/1.73 sq M.predicted (S/P/Bld) [Vol rate/Area] 27.9 mL/min Low - PINF [facility] Glucose [Mass/Vol] 80 mg/dL 74 - 100 mg/dL [facility] Interpretation and review of laboratory results Abnormal [facility] Potassium [Moles/Vol] 3.1 mmol/L Low 3.5 - 5.1 mmol/L [facility] Sodium [Moles/Vol] 133 mmol/L Low 136 - 145 mmol/L [facility] Urea nitrogen [Mass/Vol] 29 mg/dL High 9 - 23 mg/d L [facility] Basophil percentageOrdered B y: Kayley Melendrez on 02-20-2025 Basophils/100 WBC (Bld) 1.4 % High 0-1 [facility] Bilirubin, totalOrdered By: Kayley Melendrez on 02-20-2025 Bilirubin [Mass/Vol] 0.64 mg/dL 0.00-1.30 [facility] CBC (HEMOGRAM)on 02-20-2025 Erythrocyte distribution width (RBC) [Ratio] 18.8 % High 11.5-15.0 [facility] Comment on above: Performed By: #### L [id number] ####Weather Strip Mechanic: FENG CONSTANTINO ([id number])[facility]ENTERMatt [facility] CENTERDAPHNIE (SBHLAB)[address] Hematocrit (Bld) [Volume fraction] 26.8 % Low 40.0-52.0 [facility] Comment on above: Performed By: #### L AB294 ####Weather Strip Mechanic: FENG CONSTANTINO ([id number])[facility] ([facility])[address] [place] [address] Hemoglobin (Bld) [Mass/Vol] 8.7 g/dL Low 13.0-18.0 [facility] Comment on above: Performed By: #### L AB294 ####Weather Strip Mechanic: FENG CONSTANTINO ([id number])[facility] ([facility])[address] [place] [address] MCH (RBC) [Entitic mass] 28.7 pg Normal 26.0-34.0 [facility] Comment on above: Performed By: #### L AB294 ####Weather Strip Mechanic: FENG CONSTANTINO ([id number])[facility] ([facility])[address] [place] [address] MCHC 32.5 % Normal 30.5-36.0 [facility] Comment on above: Performed By: #### L AB294 ####Weather Strip Mechanic: FENG CONSTANTINO ([id number])[facility] ([facility])[address] [place] [address] MCV (RBC) [Entitic vol] 88.4 fL Normal 77.0-99.0 [facility] Comment on above: Performed By: #### L AB294 ####Weather Strip Mechanic: FENGLINO CONSTANTINO ([id number])APPLE DO (SBHLAB)[address] Platelet mean volume (Bld) [Entitic vol] 8.5 fL Low 9.0-12.7 [facility] Comment on above: Performed By: #### L AB294 ####Weather Strip Mechanic: FENGLINO CONSTANTINO ([id number])[facility] [place] (SBHLAB)[address] Platelets (Bld) [#/Vol] 312 10*3/uL Normal 140-440 [facility] Comment on above: Performed By: #### L AB294 ####Weather Strip Mechanic: FENG CONSTANTINO ([id number])[facility]ENTERMatt DO (SBHLAB)[address] RBC (Bld) [#/Vol] 3.03 10*6/uL Low 4.40-5.90 [facility] Comment on above: Performed By: #### L AB294 ####Weather Strip Mechanic: FENG CONSTANTINO ([id number])[facility]AL[facility] (SB[facility]AB)[address] WBC (Bld) [#/Vol] 9.4 10*3/uL Normal 3.6-10.7 [facility] Comment on above: Performed By: #### L AB294 ####Weather Strip Mechanic: FENG DOUGIE ([id number])[facility]ENTERMatt [place] (SBHLAB)[address] CBC W/Diff, Automatedon 05-2 Absolute Lymph 1.13 X10 3/uL Normal 0.83-4.51 [facility] Comment on above: Order Comment: 413.2 Performed By: #### L [id number] #### [facility] [address] [place], [address] Absolute Neut 4.6 X10 3/uL Normal 2.0-7.7 [facility] Comment on above: Order Comment: 413.2 Performed By: #### L [id number] #### [facility] [address] [place], [address] Basophils/100 WBC (Bld) 1.4 % High 0-1 [facility] Comment on above: Order Comment: 413.2 Performed By: #### L [id number] #### [facility] [address] [place], [address] Eosinophils/100 WBC (Bld) 2.5 % Normal 0-5 [facility] Comment on above: Order Comment: 413.2 Performed By: #### L [id number] #### [facility] [address] [place], [address] Erythrocyte distribution width (RBC) [Ratio] 19.4 % High 11.6-14.6 [facility] Comment on above: Order Comment: 413.2 Performed By: #### L [id number] #### [facility] [address] [place], [address] Hematocrit (Bld) [Volume fraction] 25.9 % Low 40-54 [facility] Comment on above: Order Comment: 413.2 Performed By: #### L [id number] #### [facility] [address] [place], [address] Hemoglobin (Bld) [Mass/Vol] 8.5 g/dL Low 13.0-16.5 [facility] Comment on above: Order Comment: 413.2 Performed By: #### L [id number] #### [facility] [address] [place], [address] IG% 0.400 Normal 0.0-0.9 [facility] Comment on above: Order Comment: 413.2 Result Comment: IG% - Immature Granulocytes (promyelocytes, myelocytes and metamyelocytes) > 1% indicates that a LEFT SHIFT is Present. Performed By: #### L [id number] #### [facility] [address] [place], [address] Lymphocytes/100 WBC (Bld) 16.4 % Low 19-41 [facility] Comment on above: Order Comment: 413.2 Performed By: #### L 300.3900 #### [facility] [address] [place], [address] MCH (RBC) [Entitic mass] 30.1 pg Normal 27.0-32.0 [facility] Comment on above: Order Comment: 413.2 Performed By: #### L [id number] #### [facility] [address] [place], [address] MCHC (RBC) [Mass/Vol] 32.8 g/dL Normal 32-36 [facility] Comment on above: Order Comment: 413.2 Performed By: #### L 300.3900 #### [facility] [address] [place], [address] MCV (RBC) [Entitic vol] 91.8 fL Normal 80-94 [facility] Comment on above: Order Comment: 413.2 Performed By: #### L [id number] #### [facility] [address] [place], [address] Monocytes/100 WBC (Bld) 12.0 % High 0-10 [facility] Comment on above: Order Comment: 413.2 Performed By: #### L [id number] #### [facility] [address] [place], [address] Neutrophils/100 WBC (Bld) 67.3 % Normal 47-70 [facility] Comment on above: Order Comment: 413.2 Performed By: #### L [id number] #### [facility] [address] [place], [address] Nucleated RBC (Bld) [#/Vol] 0 10*3/uL Normal 0-5 [facility] Comment on above: Order Comment: 413.2 Performed By: #### L [id number] #### [facility] [address] [place], [address] Platelet mean volume (Bld) [Entitic vol] 9.0 fL Normal 6.2-12.0 [facility] Comment on above: Order Comment: 413.2 Performed By: #### L 300.3900 #### [facility] [address] [place], [address] Platelets (Bld) [#/Vol] 322 10*3/uL Normal 150-450 [facility] Comment on above: Order Comment: 413.2 Performed By: #### L [id number] #### [facility] [address] [place], [address] RBC (Bld) [#/Vol] 2.82 10*6/uL Low 4.6-6.[address] [facility] Comment on above: Order Comment: 413.2 Performed By: #### L [id number] #### [facility] [address] [place], [address] RDW SD 63.5 fl High 35.1-43.9 [facility] Comment on above: Order Comment: 413.2 Performed By: #### L [id number] #### [facility] [address] [place], [address] WBC (Bld) [#/Vol] 6.9 10*3/uL Normal 4.4-11.[address] [facility] Comment on above: Order Comment: 413.2 Performed By: #### L [id number] #### [facility] [address] [place], [address] CBC panel Auto (Bld)on 02-20 Erythrocyte distribution width (RBC) [Ratio] 18.8 % High 11.5 - 15.0 % [facility] Hematocrit (Bld) [Volume fraction] 26.8 % Low 40.0 - 52.0 % [facility] Hemoglobin (Bld) [Mass/Vol] 8.7 g/dL Low 13.0 - 18.0 g/dL [facility] Interpretation and review of laboratory results Abnormal [facility] MCH (RBC) [Entitic mass] 28.7 pg 26. 0 - 34.0 pg [facility] MCHC (RBC) [Mass/Vol] 32.5 % 30.5 - 36.0 % [facility] MCV (RBC) [Entitic vol] 88.4 fL 77.0 - 99.0 fL [facility] Platelet mean volume (Bld) [Entitic vol] 8.5 fL Low 9.0 - 12.7 fL [facility] Platelets (Bld) [#/Vol] 312 10*3/uL 140 - 440 10*3/uL [facility] RBC (Bld) [#/Vol] 3.03 10*6/uL Low 4.40 - 5.9 0 10*6/uL [facility] WBC (Bld) [#/Vol] 9.4 10*3/uL 3.6 - 10.7 10*3/uL [facility] CT CHEST ANGIOGRAM W AND/OR WO IV CONTRASTon 02-20-2025 CT CHEST ANGIOGRAM W AND/OR WO IV CONTRAST Normal [facility] CTA Chest vessels WO and W c ontrast Dimitrios 02-20-2025 [facility] Radiology Study observation (narrative) [facility] alth CTA Chest vessels WO and W c ontrast IVOrdered By: Justo Milan on 02-20-2025 [facility] Work Phone: Carbon dioxide, total [Moles /volume] in Central venous bloodOrdered By: Kayley Melendrez on 02-20-2025 CO2 [Moles/Vol] 30.1 mmol/L 21.0-32.0 [facility] Chloride assayOrdered By: Carmen Melendrez on 02-20-2025 Chloride [Moles/Vol] 91 mmol/L Low 98-108 [facility]-20-2025 Albumin [Mass/Vol] 3.0 g/dL Low 3.5-5.[address] [facility] Comment on above: Order Comment: 413.2 Performed By: #### L 300.3900 #### [facility] [address] [place], [address] Albumin/Globulin [Mass ratio] 0.8 {ratio} Low 0.9-2.4 [facility] Comment on above: Order Comment: 413.2 Performed By: #### L 300.3900 #### [facility] [address] [place], [address] ALK PHOS 133 U/L High 40-129 [facility] Comment on above: Order Comment: 413.2 Performed By: #### L [id number] #### [facility] [address] [place], [address] ALT [Catalytic activity/Vol] 13 U/L Normal <=46 [facility] Comment on above: Order Comment: 413.2 Performed By: #### L 300.3900 #### [facility] [address] [place], [address] AST [Catalytic activity/Vol] 32 U/L Normal <=37 [facility] Comment on above: Order Comment: 413.2 Performed By: #### L [id number] #### [facility] [address] [place], [address] Bilirubin [Mass/Vol] 0.64 mg/dL Normal 0.00-1.30 [facility] Comment on above: Order Comment: 413.2 Performed By: #### L 300.3900 #### [facility] [address] [place], [address] BUN/CRE 11.5 RATIO Normal 10-20 [facility] Comment on above: Order Comment: 413.2 Performed By: #### L 300.3900 #### [facility] [address] [place], [address] Calcium [Mass/Vol] 9.8 mg/dL Normal 7.6-11.[address] [facility] Comment on above: Order Comment: 413.2 Performed By: #### L [id number] #### [facility] [address] [place], [address] Chloride [Moles/Vol] 91 mmol/L Low 98-108 [facility] Comment on above: Order Comment: 413.2 Performed By: #### L [id number] #### [facility] [address] [place], [address] CO2 [Moles/Vol] 30.1 mmol/L Normal 21.0-32.0 [facility] Comment on above: Order Comment: 413.2 Performed By: #### L [id number] #### [facility] [address] [place], [address] Creatinine [Mass/Vol] 3.87 mg/dL High 0.70-1.20 [facility] Comment on above: Order Comment: 413.2 Performed By: #### L [id number] #### [facility] [address] [place], [address] GAP 12 Normal 5-15 [facility] Comment on above: Order Comment: 413.2 Performed By: #### L [id number] #### [facility] [address] [place], [address] GFR/1.73 sq M.predicted among non-blacks MDRD (S/P/Bld) [Vol rate/Area] 17 mL/min/{1.73_m2} Low >60 [facility] Comment on above: Order Comment: 413.2 Result Comment: mL/m in/1.73m2 CKD-EPI Creatinine Equation (2020) Performed By: #### L [id number] #### [facility] [address] [place], [address] Globulin (S) [Mass/Vol] 4.0 g/dL Normal 2.2-4.2 [facility] Comment on above: Order Comment: 413.2 Performed By: #### L [id number] #### [facility] [address] [place], [address] Glucose [Mass/Vol] 78 mg/dL Normal 70-[address] [facility] Comment on above: Order Comment: 413.2 Performed By: #### L [id number] #### [facility] [address] [place], [address] Potassium [Moles/Vol] 3.0 mmol/L Low 3.3-5.1 [facility] Comment on above: Order Comment: 413.2 Performed By: #### L [id number] #### [facility] [address] [place], [address] Sodium [Moles/Vol] 134 mmol/L Normal 133-[address] [facility] Comment on above: Order Comment: 413.2 Performed By: #### L [id number] #### [facility] [address] [place], [address] T PROT 6.9 g/dL Normal 5.9-8.4 [facility] Comment on above: Order Comment: 413.2 Performed By: #### L [id number] #### [facility] [address] [place], [address] Urea nitrogen [Mass/Vol] 44 mg/dL High 4-19 [facility] Comment on above: Order Comment: 413.2 Performed By: #### L [id number] #### [facility] [address] [place], [address] ED Nursing Noteon 02-20-2025 ED Nursing Note Called report to 3W nurse who will be taking over pt care. Normal [facility] ED Nursing Note Attempted to reposition pt and have him sit up but pt states "he feels fine and does not want to sit up"despite coughing up blood. Normal [facility] ED Nursing Note Pt placed on 2L NC due to O2 saturation of 90%. Currently 97 on 2L Normal [facility] ED Nursing Note Suction turned on at this time for pt due to increased coughing up of blood Normal [facility] ED Nursing Note Normal [facility] ED Nursing Note Normal [facility] ED Provider Noteon ED Provider Note Normal [facility] Eosinophil percentageOrdered By: Kayley Melendrez on 02-20-2025 Eosinophils/100 WBC (Bld) 2.5 % 0-5 [facility] Erythrocyte distribution wid th ratioOrdered By: Kayley Melendrez on 02-20-2025 Erythrocyte distribution width (RBC) [Ratio] 19.4 % High 11.6-14.6 [facility] Erythrocyte distribution wid th standard deviationOrdered By: Kayley Melendrez on 02-20-2025 Erythrocyte distribution width (RBC) [Ratio] 63.5 fl High 35.1-43.9 [facility] Glomerular filtration rate ( GFR) estimation/1.73 sq m using serum, plasma, or whole bOrdered By: Kayley Melendrez on 02-20-2025 GFR/1.73 sq M.predicted among non-blacks MDRD (S/P/Bld) [Vol rate/Area] 17 mL/min/{1.73_m2} Low >60 [facility] Comment on above: mL/min/1.73m2 CKD-EP I Creatinine Equation (2020) Hematocrit Auto (Bld) [Volum e fraction]Ordered By: Kayley Melendrez on 02-20-2025 Hematocrit (Bld) [Volume fraction] 25.9 % Low 40-54 [facility] Hemoglobin measurementOrdere d By: Kayley Melendrez on 02-20-2025 Hemoglobin (Bld) [Mass/Vol] 8.5 g/dL Low 13.0-16.5 [facility] Immature granulocytes/100 WB C Auto (Bld)Ordered By: Kayley Melendrez on 02-20-2025 Immature granulocytes/100 WBC (Bld) 0.400 % 0.0-0.9 [facility] Comment on above: IG% - Immature Granu locytes (promyelocytes, myelocytes and metamyelocytes) > 1% indicates that a LEFT SHIFT is Present. International normalized rat io (INR) calculationOrdered By: Kayley Melendrez on 02-20-2025 INR Coag (Bld) [Relative time] 1.4 {INR} [facility] - Chemistry and C hemistry - challengeOrdered By: Kayley Melendrez on 02-20-2025 AST [Catalytic activity/Vol] 32 U/L <38 [facility] - Coagulationon 0 02-20-2025 PT Coag (Bld) [Time] 14.7 s High 9.0 - 12.0 s [facility] MCV (mean corpuscular volume ) determinationOrdered By: Kayley Melendrez on 02-20-2025 MCV (RBC) [Entitic vol] 91.8 fL 80-94 [facility] Mean corpuscular hemoglobin (MCH) determinationOrdered By: Kayley Melendrez on 02-20-2025 MCH (RBC) [Entitic mass] 30.1 pg 27.0-32.0 [facility] Mean corpuscular hemoglobin concentration (MCHC) determinationOrdered By: Kayley Melendrez on 02-20-2025 MCHC (RBC) [Mass/Vol] 32.8 g/dL 32-36 [facility] Mean platelet volume determi nationOrdered By: Kayley Melendrez on 02-20-2025 Platelet mean volume (Bld) [Entitic vol] 9.0 fL 6.2-12.0 [facility] Monocyte percentageOrdered B y: Kayley Melendrez on 02-20-2025 Monocytes/100 WBC (Bld) 12.0 % High 0-10 [facility] Neutrophil percentageOrdered By: Kayley Melendrez on 02-20-2025 Neutrophils/100 WBC (Bld) 67.3 % 47-70 [facility] No Panel Informationon 02-20 [facility] Nucleated red blood cell per centageOrdered By: Kayley Melendrez on 02-20-2025 Nucleated RBC/100 WBC (Bld) [Ratio] 0 % 0-5 [facility] Nursing Noteon 02-20-2025 Nursing Note Pt arrived on floor via [facility] Normal [facility] PROTHROMBIN TIMEon INR Coag (PPP) [Relative time] 1.4 {INR} High 0.9-1.1 [facility] Comment on above: Result Comment: Vaughn mmended [...] Myocardial Infarction Performed By: #### Tameka [id number], [id number] ####Weather Strip Mechanic: FENG CONSTANTINO ([phone])[facility] [place] [address] PT Coag (PPP) [Time] 14.7 s High 9.0-12.0 [facility] Comment on above: Performed By: #### Tameka [id number], [id number] ####Weather Strip Mechanic: FENG CONSTANTINO ([phone])[facility] ([facility])[address] [place] [address] PT Coag (Bld) [Time]on 02-20 INR Coag (PPP) [Relative time] 1.4 {INR} High 0.9 - 1.1 [facility] Interpretation and review of laboratory results Abnormal [facility] Platelet countOrdered By: Carmen Melendrez on 02-20-2025 Platelets (Bld) [#/Vol] 322 10*3/uL 150-450 [facility] Potassium measurement (mass/ volume)Ordered By: Kayley Melendrez on 02-20-2025 Potassium (Unsp spec) [Mass/Vol] 3.0 mmol/L Low 3.3-5.1 [facility] Prothrombin Time w/INRon INR Coag (PPP) [Relative time] 1.4 {INR} Normal [facility] Comment on above: Order Comment: 413.2 Performed By: #### L [id number], L100.0100, L300.3900 #### [facility] [address] [place], [address] PT Coag (PPP) [Time] 17.5 s High 11.7-14.9 [facility] Comment on above: Order Comment: 413.2 Performed By: #### L [id number], L100.0100, L300.3900 #### [facility] [address] [place], [address] Prothrombin timeOrdered By: Kayley Melendrez on 02-20-2025 PT Coag (PPP) [Time] 17.5 s High 11.7-14.9 [facility] RBC Auto (Bld) [#/Vol]Ordere d By: Kayley Melendrez on 02-20-2025 RBC (Bld) [#/Vol] 2.82 10*6/uL Low 4.6-6.[address] [facility] Serum creatinine measurement (mass/volume)Ordered By: Kayley Melendrez on 02-20-2025 Creatinine [Mass/Vol] 3.87 mg/dL High 0.70-1.20 [facility] Serum globulin measurementOr dered By: Kayley Melendrez on 02-20-2025 Globulin (S) [Mass/Vol] 4.0 g/dL 2.2-4.2 [facility] Serum glucose measurement (m ass/volume)Ordered By: Kayley Melendrez on 02-20-2025 Glucose [Mass/Vol] 78 mg/dL 70-[address] [facility] Serum or plasma alanine mayorga otransferase (ALT) measurementOrdered By: Kayley Melendrez on 02-20-2025 ALT [Catalytic activity/Vol] 13 U/L <47 [facility] Serum or plasma albumin audrey urement (mass/volume)Ordered By: Kayley Melendrez on 02-20-2025 Albumin [Mass/Vol] 3.0 g/dL Low 3.5-5.[address] [facility] Serum or plasma albumin/glob ulin mass ratioOrdered By: Kayley Melendrez on 02-20-2025 Albumin/Globulin [Mass ratio] 0.8 {ratio} Low 0.9-2.4 [facility] Serum or plasma alkaline jacob sphatase measurementOrdered By: Kayley Melendrez on 02-20-2025 ALP [Catalytic activity/Vol] 133 U/L High 40-129 [facility] Serum or plasma calcium audrey urement (mass/volume)Ordered By: Kayley Melendrez on 02-20-2025 Calcium [Mass/Vol] 9.8 mg/dL 7.6-11.[address] [facility] Serum or plasma urea nitroge n measurement (mass/volume)Ordered By: Kayley Melendrez on 02-20-2025 Urea nitrogen [Mass/Vol] 44 mg/dL High 4-19 [facility] Sodium levelOrdered By: Omega Melendrez on 02-20-2025 Sodium [Moles/Vol] 134 mmol/L 133-[address] [facility] Total proteinOrdered By: Lexis Melendrez on 02-20-2025 Protein [Mass/Vol] 6.9 g/dL 5.9-8.[address] [facility] White blood cell (WBC) count Ordered By: Kayley Melendrez on 02-20-2025 WBC (Bld) [#/Vol] 6.9 10*3/uL 4.4-11.[address] [facility] aPTT Coag (Bld) [Time]on aPTT Coag (PPP) [Time] 26.2 s 20.0 - 30.5 s [facility] Interpretation and review of laboratory results Normal [facility] International normalized rat io (INR) calculationOrdered By: Kayley Melendrez on 02-15-2025 INR Coag (Bld) [Relative time] 1.3 {INR} [facility] Prothrombin Time w/INRon INR Coag (PPP) [Relative time] 1.3 {INR} Normal [facility] Comment on above: Order Comment: 413.2 Performed By: #### L [id number], L100.0100, L300.3900 #### [facility] [address] [place], [address] PT Coag (PPP) [Time] 16.6 s High 11.7-14.9 [facility] Comment on above: Order Comment: 413.2 Performed By: #### L [id number], L100.0100, L300.3900 #### [facility] [address] [place], [address] Prothrombin timeOrdered By: Kayley Melendrez on 02-15-2025 PT Coag (PPP) [Time] 16.6 s High 11.7-14.9 [facility] Progress Noteon 02-14-2025 Progress Note Patient completed 6 week course of Amp-Sulbactam on 02/13/25 for sacral osteomyelitis. Tunneled line has since been removed. Continue to monitor off antibiotics at this time. Continue wound care. Normal [facility] Progress Note Normal [facility] International normalized rat io (INR) measurement by fingerstickOrdered By: Kayley Melendrez on 02-13-2025 INR Coag (BldC) [Relative time] 1.7 [facility] Comment on above: Critical Value > 4.0 Protime w/INR Fingerstickon 02-13-2025 INR Coag (PPP) [Relative time] 1.7 {INR} Normal [facility] Comment on above: Result Comment: Crit ical Value > 4.0 Performed By: #### L [id number] #### [facility] [address] [place], [address] Protime Coagsen 19.1 SEC High 11.7-14.9 [facility] Comment on above: Performed By: #### L [id number] #### [facility] [address] [place], [address] Whole blood prothrombin time Ordered By: Kayley Melendrez on 02-13-2025 PT Coag (Bld) [Time] 19.1 s High 11.7-14.9 [facility] Absolute lymphocyte countOrd ered By: Lexisamparo Rejistephen on 02-12-2025 Lymphocytes Auto (Unsp spec) [#/Vol] 1.29 10*3/uL 0.83-4.51 [facility] Absolute neutrophil countOrd ered By: [facility] Re[facility]istephen on 02-12-2025 Neutrophils (Bld) [#/Vol] 4.7 10*3/uL 2.0-7.7 [facility] Anion gap in Serum or Plasma Ordered By: Kayley Melendrez on 02-12-2025 Anion gap [Moles/Vol] 12 mmol/L 5-15 [facility] Automated lymphocyte count a s percentage of total leukocytesOrdered By: Kayley Melendrez on 02-12-2025 Lymphocytes/100 WBC Auto (Unsp spec) 17.7 % Low 19-41 [facility] BUN/creatinine ratioOrdered By: [facility] Melendrez on 02-12-2025 Urea nitrogen/Creatinine [Mass ratio] 10.3 mg/mg 10-20 [facility] Basophil percentageOrdered B y: Kayley Melendrez on 02-12-2025 Basophils/100 WBC (Bld) 1.1 % High 0-1 [facility] Bilirubin, totalOrdered By: Kayley Melendrez on 02-12-2025 Bilirubin [Mass/Vol] 0.69 mg/dL 0.00-1.30 [facility] CBC W/Diff, Automatedon 01-25 Absolute Lymph 1.29 X10 3/uL Normal 0.83-4.51 [facility] Comment on above: Performed By: #### L [id number], L100.0100, L300.3900 #### [facility] [address] [facility] [place], [address] Absolute Neut 4.7 X10 3/uL Normal 2.0-7.7 [facility] Comment on above: Performed By: #### L [id number], L100.0100, L300.3900 #### [facility] [address] [place], [address] Basophils/100 WBC (Bld) 1.1 % High 0-1 [facility] Comment on above: Performed By: #### L [id number], L100.0100, [id number] #### [facility] [address] [place], [address] Eosinophils/100 WBC (Bld) 4.7 % Normal 0-5 [facility] Comment on above: Performed By: #### L [id number], L100.0100, [id number] #### [facility] [address] [place], [address] Erythrocyte distribution width (RBC) [Ratio] 18.3 % High 11.6-14.6 [facility] Comment on above: Performed By: #### L [id number], L100.0100, [id number] #### [facility] [address] [place], [address] Hematocrit (Bld) [Volume fraction] 24.6 % Low 40-54 [facility] Comment on above: Performed By: #### L [id number], L100.0100, [id number] #### [facility] [address] [place], [address] Hemoglobin (Bld) [Mass/Vol] 8.0 g/dL Low 13.0-16.5 [facility] Comment on above: Performed By: #### L [id number], L100.0100, [id number] #### [facility] [address] [place], [address] IG% 0.500 Normal 0.0-0.9 [facility] Comment on above: Result Comment: IG% - Immature Granulocytes (promyelocytes, myelocytes and metamyelocytes) > 1% indicates that a LEFT SHIFT is Present. Performed By: #### L [id number], L100.0100, L300.3900 #### [facility] [address] [place], [address] Lymphocytes/100 WBC (Bld) 17.7 % Low 19-41 [facility] Comment on above: Performed By: #### L [id number], L100.0100, [id number] #### [facility] [address] [place], [address] MCH (RBC) [Entitic mass] 29.3 pg Normal 27.0-32.0 [facility] Comment on above: Performed By: #### L [id number], L100.0100, [id number] #### [facility] [address] [place], [address] MCHC (RBC) [Mass/Vol] 32.5 g/dL Normal 32-36 [facility] Comment on above: Performed By: #### L [id number], L100.0100, [id number] #### [facility] [address] [place], [address] MCV (RBC) [Entitic vol] 90.1 fL Normal 80-94 [facility] Comment on above: Performed By: #### L [id number], L100.0100, [id number] #### [facility] [address] [place], [address] Monocytes/100 WBC (Bld) 11.9 % High 0-10 [facility] Comment on above: Performed By: #### L [id number], L100.0100, [id number] #### [facility] [address] [place], [address] Neutrophils/100 WBC (Bld) 64.1 % Normal 47-70 [facility] Comment on above: Performed By: #### L [id number], L100.0100, [id number] #### [facility] [address] [place], [address] Nucleated RBC (Bld) [#/Vol] 0 10*3/uL Normal 0-5 [facility] Comment on above: Performed By: #### L [id number], L100.0100, [id number] #### [facility] [address] [place], [address] Platelet mean volume (Bld) [Entitic vol] 9.2 fL Normal 6.2-12.0 [facility] Comment on above: Performed By: #### L [id number], L100.0100, [id number] #### [facility] [address] [place], [address] Platelets (Bld) [#/Vol] 294 10*3/uL Normal 150-450 [facility] Comment on above: Performed By: #### L [id number], L100.0100, [id number] #### [facility] [address] [place], [address] RBC (Bld) [#/Vol] 2.73 10*6/uL Low 4.6-6.[address] [facility] Comment on above: Performed By: #### L [id number], L100.0100, [id number] #### [facility] [address] [place], [address] RDW SD 59.4 fl High 35.1-43.9 [facility] Comment on above: Performed By: #### L [id number], L100.0100, [id number] #### [facility] [address] [place], [address] WBC (Bld) [#/Vol] 7.3 10*3/uL Normal 4.4-11.[address] [facility] Comment on above: Performed By: #### L 500.4050, L100.0100, L300.3900 #### [facility] [address] [place], [address] Carbon dioxide, total [Moles /volume] in Central venous bloodOrdered By: Kayley Melendrez on 02-12-2025 CO2 [Moles/Vol] 28.4 mmol/L 21.0-32.0 [facility] Chloride assayOrdered By: Carmen Melendrez on 02-12-2025 Chloride [Moles/Vol] 91 mmol/L Low 98-108 [facility] Comprehensive Metabolic Prof ilon 02-12-2025 Albumin [Mass/Vol] 2.9 g/dL Low 3.5-5.[address] [facility] Comment on above: Performed By: #### L 500.4050, L100.0100, [id number] #### [facility] [address] [place], [address] Albumin/Globulin [Mass ratio] 0.7 {ratio} Low 0.9-2.4 [facility] Comment on above: Performed By: #### L 500.4050, L100.0100, [id number] #### [facility] [address] [place], [address] ALK PHOS 177 U/L High 40-129 [facility] Comment on above: Performed By: #### L 500.4050, L100.0100, [id number] #### [facility] [address] [place], [address] ALT [Catalytic activity/Vol] 9 U/L Normal <=46 [facility] Comment on above: Performed By: #### L 500.4050, L100.0100, [id number] #### [facility] [address] [place], [address] AST [Catalytic activity/Vol] 34 U/L Normal <=37 [facility] Comment on above: Performed By: #### L 500.4050, L100.0100, [id number] #### [facility] [address] [place], [address] Bilirubin [Mass/Vol] 0.69 mg/dL Normal 0.00-1.30 [facility] Comment on above: Performed By: #### L 500.4050, L100.0100, [id number] #### [facility] [address] [place], [address] BUN/CRE 10.3 RATIO Normal 10-20 [facility] Comment on above: Performed By: #### L 500.4050, L100.0100, [id number] #### [facility] [address] [place], [address] Calcium [Mass/Vol] 9.9 mg/dL Normal 7.6-11.[address] [facility] Comment on above: Performed By: #### L 500.4050, L100.0100, [id number] #### [facility] [address] [place], [address] Chloride [Moles/Vol] 91 mmol/L Low 98-108 [facility] Comment on above: Performed By: #### L 500.4050, L100.0100, [id number] #### [facility] [address] [place], [address] CO2 [Moles/Vol] 28.4 mmol/L Normal 21.0-32.0 [facility] Comment on above: Performed By: #### L 500.4050, L100.0100, [id number] #### [facility] [address] [place], [address] Creatinine [Mass/Vol] 4.17 mg/dL High 0.70-1.20 [facility] Comment on above: Performed By: #### L 500.4050, L100.0100, [id number] #### [facility] [address] [place], [address] GAP 12 Normal 5-15 [facility] Comment on above: Performed By: #### L 500.4050, L100.0100, [id number] #### [facility] [address] [place], [address] GFR/1.73 sq M.predicted among non-blacks MDRD (S/P/Bld) [Vol rate/Area] 16 mL/min/{1.73_m2} Low >60 [facility] Comment on above: Result Comment: mL/m in/1.73m2 CKD-EPI Creatinine Equation (2020) Performed By: #### L 500.4050, L100.0100, [id number] #### [facility] [address] [place], [address] Globulin (S) [Mass/Vol] 4.2 g/dL Normal 2.2-4.2 [facility] Comment on above: Performed By: #### L 500.4050, L100.0100, [id number] #### [facility] [address] [place], [address] Glucose [Mass/Vol] 77 mg/dL Normal 70-[address] [facility] Comment on above: Performed By: #### L 500.4050, L100.0100, [id number] #### [facility] [address] [place], [address] Potassium [Moles/Vol] 3.2 mmol/L Low 3.3-5.1 [facility] Comment on above: Performed By: #### L 500.4050, L100.0100, [id number] #### [facility] [address] [place], [address] Sodium [Moles/Vol] 131 mmol/L Low 133-[address] [facility] Comment on above: Performed By: #### L 500.4050, L100.0100, [id number] #### [facility] [address] [place], [address] T PROT 7.1 g/dL Normal 5.9-8.4 [facility] Comment on above: Performed By: #### L 500.4050, L100.0100, [id number] #### [facility] [address] [place], [address] Urea nitrogen [Mass/Vol] 43 mg/dL High 4-19 [facility] Comment on above: Performed By: #### L 500.4050, L100.0100, [id number] #### [facility] [address] [place], [address] Eosinophil percentageOrdered By: Kayley Melendrez on 02-12-2025 Eosinophils/100 WBC (Bld) 4.7 % 0-5 [facility] Erythrocyte distribution wid th ratioOrdered By: [facility] on 02-12-2025 Erythrocyte distribution width (RBC) [Ratio] 18.3 % High 11.6-14.6 [facility] Erythrocyte distribution wid th standard deviationOrdered By: [facility] Centerjacob aneudywoostersamson on 02-12-2025 Erythrocyte distribution width (RBC) [Ratio] 59.4 fl High 35.1-43.9 [facility] Glomerular filtration rate ( GFR) estimation/1.73 sq m using serum, plasma, or whole bOrdered By: Kayley Melendrez on 02-12-2025 GFR/1.73 sq M.predicted among non-blacks MDRD (S/P/Bld) [Vol rate/Area] 16 mL/min/{1.73_m2} Low >60 [facility] Comment on above: mL/min/1.73m2 CKD-EP I Creatinine Equation (2020) Hematocrit Auto (Bld) [Volum e fraction]Ordered By: Kayley Melendrez on 02-12-2025 Hematocrit (Bld) [Volume fraction] 24.6 % Low 40-54 [facility] Hemoglobin measurementOrdere d By: Kayley Melendrez on 02-12-2025 Hemoglobin (Bld) [Mass/Vol] 8.0 g/dL Low 13.0-16.5 [facility] Immature granulocytes/100 WB C Auto (Bld)Ordered By: Kayley Melendrez on 02-12-2025 Immature granulocytes/100 WBC (Bld) 0.500 % 0.0-0.9 [facility] Comment on above: IG% - Immature Granu locytes (promyelocytes, myelocytes and metamyelocytes) > 1% indicates that a LEFT SHIFT is Present. International normalized rat io (INR) calculationOrdered By: Kayley Melendrez on 02-12-2025 INR Coag (Bld) [Relative time] 1.5 {INR} [facility] - Chemistry and C hemistry - challengeOrdered By: Kayley Melendrez on 02-12-2025 AST [Catalytic activity/Vol] 34 U/L <38 [facility] MCV (mean corpuscular volume ) determinationOrdered By: Kayley Melendrez on 02-12-2025 MCV (RBC) [Entitic vol] 90.1 fL 80-94 [facility] Mean corpuscular hemoglobin (MCH) determinationOrdered By: Kayley Melendrez on 02-12-2025 MCH (RBC) [Entitic mass] 29.3 pg 27.0-32.0 [facility] Mean corpuscular hemoglobin concentration (MCHC) determinationOrdered By: Kayley Melendrez on 02-12-2025 MCHC (RBC) [Mass/Vol] 32.5 g/dL 32-36 [facility] Mean platelet volume determi nationOrdered By: Kayley Melendrez on 02-12-2025 Platelet mean volume (Bld) [Entitic vol] 9.2 fL 6.2-12.0 [facility] Monocyte percentageOrdered B y: Kayley Melendrez on 02-12-2025 Monocytes/100 WBC (Bld) 11.9 % High 0-10 [facility] Neutrophil percentageOrdered By: Lexisamparo Melendrez on 02-12-2025 Neutrophils/100 WBC (Bld) 64.1 % 47-70 [facility] Nucleated red blood cell per centageOrdered By: Kayley Melendrez on 02-12-2025 Nucleated RBC/100 WBC (Bld) [Ratio] 0 % 0-5 [facility] Platelet countOrdered By: Carmen Melendrez on 02-12-2025 Platelets (Bld) [#/Vol] 294 10*3/uL 150-450 [facility] Potassium measurement (mass/ volume)Ordered By: Kayley Melendrez on 02-12-2025 Potassium (Unsp spec) [Mass/Vol] 3.2 mmol/L Low 3.3-5.1 [facility] Prothrombin Time w/INRon INR Coag (PPP) [Relative time] 1.5 {INR} Normal [facility] Comment on above: Performed By: #### L [id number], L100.0100, L300.3900 #### [facility] [address] [place], [address] PT Coag (PPP) [Time] 17.9 s High 11.7-14.9 [facility] Comment on above: Performed By: #### L [id number], L100.0100, [id number] #### [facility] [address] [place], [address] Prothrombin timeOrdered By: Kayley Melendrez on 02-12-2025 PT Coag (PPP) [Time] 17.9 s High 11.7-14.9 [facility] RBC Auto (Bld) [#/Vol]Ordere d By: Kayley Melendrez on 02-12-2025 RBC (Bld) [#/Vol] 2.73 10*6/uL Low 4.6-6.[address] [facility] Serum creatinine measurement (mass/volume)Ordered By: Kayley Melendrez on 02-12-2025 Creatinine [Mass/Vol] 4.17 mg/dL High 0.70-1.20 [facility] Serum globulin measurementOr dered By: Kayley Melendrez on 02-12-2025 Globulin (S) [Mass/Vol] 4.2 g/dL 2.2-4.2 [facility] Serum glucose measurement (m ass/volume)Ordered By: Kayley Melendrez on 02-12-2025 Glucose [Mass/Vol] 77 mg/dL 70-[address] [facility] Serum or plasma alanine mayorga otransferase (ALT) measurementOrdered By: Kayley Melendrez on 02-12-2025 ALT [Catalytic activity/Vol] 9 U/L <47 [facility] Serum or plasma albumin audrey urement (mass/volume)Ordered By: Kayley Melendrez on 02-12-2025 Albumin [Mass/Vol] 2.9 g/dL Low 3.5-5.[address] [facility] Serum or plasma albumin/glob ulin mass ratioOrdered By: Kayley Melendrez on 02-12-2025 Albumin/Globulin [Mass ratio] 0.7 {ratio} Low 0.9-2.4 [facility] Serum or plasma alkaline jacob sphatase measurementOrdered By: Kayley Melendrez on 02-12-2025 ALP [Catalytic activity/Vol] 177 U/L High 40-129 [facility] Serum or plasma calcium audrey urement (mass/volume)Ordered By: Kayley Melendrez on 02-12-2025 Calcium [Mass/Vol] 9.9 mg/dL 7.6-11.[address] [facility] Serum or plasma urea nitroge n measurement (mass/volume)Ordered By: Kayley Melendrez on 02-12-2025 Urea nitrogen [Mass/Vol] 43 mg/dL High 4-19 [facility] Sodium levelOrdered By: Omega Melendrez on 02-12-2025 Sodium [Moles/Vol] 131 mmol/L Low 133-[address] [facility] Total proteinOrdered By: Lexis Melendrez on 02-12-2025 Protein [Mass/Vol] 7.1 g/dL 5.9-8.[address] [facility] White blood cell (WBC) count Ordered By: Kayley Melendrez on 02-12-2025 WBC (Bld) [#/Vol] 7.3 10*3/uL 4.4-11.[address] [facility] International normalized rat io (INR) measurement by fingerstickOrdered By: Kayley Melendrez on 02-08-2025 INR Coag (BldC) [Relative time] 2.3 [facility] Comment on above: Critical Value > 4.0 Protime w/INR Fingerstickon 02-08-2025 INR Coag (PPP) [Relative time] 2.3 {INR} Normal [facility] Comment on above: Result Comment: Crit ical Value > 4.0 Performed By: #### L 9200.0000 #### [facility] [address] [place], [address] Protime Coagsen 24.9 SEC High 11.7-14.9 [facility] Comment on above: Performed By: #### L 9200.0000 #### [facility] [address] [place], [place], [id number] Whole blood prothrombin time Ordered By: Kayley Melendrez on 02-08-2025 PT Coag (Bld) [Time] 24.9 s High 11.7-14.9 [facility] International normalized rat io (INR) calculationOrdered By: Jayesh Stubbs on 02-07-2025 INR Coag (Bld) [Relative time] 1.8 {INR} [facility] Prothrombin Time w/INRon INR Coag (PPP) [Relative time] 1.8 {INR} Normal [facility] Comment on above: Order Comment: 412.2 Performed By: #### L 100.0100, L500.4050, L300.3900 #### [facility] [address] [place], [address] PT Coag (PPP) [Time] 21.1 s High 11.7-14.9 [facility] Comment on above: Order Comment: 412.2 Performed By: #### L 100.0100, L500.4050, [id number] #### [facility] [address] [place], [address] Prothrombin timeOrdered By: Jayesh Stubbs on 02-07-2025 PT Coag (PPP) [Time] 21.1 s High 11.7-14.9 [facility] Absolute lymphocyte countOrd ered By: Kayley Melendrez on 02-05-2025 Lymphocytes Auto (Unsp spec) [#/Vol] 1.77 10*3/uL 0.83-4.51 [facility] Absolute neutrophil countOrd ered By: Kayley Melendrez on 02-05-2025 Neutrophils (Bld) [#/Vol] 4.6 10*3/uL 2.0-7.7 [facility] Anion gap in Serum or Plasma Ordered By: Kayley Melendrez on 02-05-2025 Anion gap [Moles/Vol] 18 mmol/L High 5-15 [facility] Automated lymphocyte count a s percentage of total leukocytesOrdered By: Kayley Melendrez on 02-05-2025 Lymphocytes/100 WBC Auto (Unsp spec) 22.0 % 19-41 [facility] BUN/creatinine ratioOrdered By: Kayley Melendrez on 02-05-2025 Urea nitrogen/Creatinine [Mass ratio] 4.1 mg/mg Low 10-20 [facility] Basophil percentageOrdered B y: Kayley Melendrez on 02-05-2025 Basophils/100 WBC (Bld) 1.0 % 0-1 [facility] Bilirubin, totalOrdered By: Kayley Melendrez on 02-05-2025 Bilirubin [Mass/Vol] 0.81 mg/dL 0.00-1.30 [facility] CBC W/Diff, Automatedon 05-1 -2024 Absolute Lymph 1.77 X10 3/uL Normal 0.83-4.51 [facility] Comment on above: Order Comment: 413.2 Performed By: #### L 500.4050, L100.0100, L300.3900 #### [facility] [address] [place], [address] Absolute Neut 4.6 X10 3/uL Normal 2.0-7.7 [facility] Comment on above: Order Comment: 413.2 Performed By: #### L 500.4050, L100.0100, L300.3900 #### [facility] [address] [place], [address] Basophils/100 WBC (Bld) 1.0 % Normal 0-1 [facility] Comment on above: Order Comment: 413.2 Performed By: #### L 500.4050, L100.0100, [id number] #### [facility] [address] [place], [address] Eosinophils/100 WBC (Bld) 4.1 % Normal 0-5 [facility] Comment on above: Order Comment: 413.2 Performed By: #### L 500.4050, L100.0100, [id number] #### [facility] [address] [place], [address] Erythrocyte distribution width (RBC) [Ratio] 18.8 % High 11.6-14.6 [facility] Comment on above: Order Comment: 413.2 Performed By: #### L 500.4050, L100.0100, [id number] #### [facility] [address] [place], [address] Hematocrit (Bld) [Volume fraction] 28.1 % Low 40-54 [facility] Comment on above: Order Comment: 413.2 Performed By: #### L 500.4050, L100.0100, [id number] #### [facility] [address] [place], [address] Hemoglobin (Bld) [Mass/Vol] 8.8 g/dL Low 13.0-16.5 [facility] Comment on above: Order Comment: 413.2 Performed By: #### L 500.4050, L100.0100, [id number] #### [facility] [address] [place], [address] IG% 0.600 Normal 0.0-0.9 [facility] Comment on above: Order Comment: 413.2 Result Comment: IG% - Immature Granulocytes (promyelocytes, myelocytes and metamyelocytes) > 1% indicates that a LEFT SHIFT is Present. Performed By: #### L 500.4050, L100.0100, L300.3900 #### [facility] [address] [place], [address] Lymphocytes/100 WBC (Bld) 22.0 % Normal 19-41 [facility] Comment on above: Order Comment: 413.2 Performed By: #### L 500.4050, L100.0100, [id number] #### [facility] [address] [place], [address] MCH (RBC) [Entitic mass] 29.0 pg Normal 27.0-32.0 [facility] Comment on above: Order Comment: 413.2 Performed By: #### L 500.4050, L100.0100, [id number] #### [facility] [address] [place], [address] MCHC (RBC) [Mass/Vol] 31.3 g/dL Low 32-36 [facility] Comment on above: Order Comment: 413.2 Performed By: #### L 500.4050, L100.0100, [id number] #### [facility] [address] [place], [address] MCV (RBC) [Entitic vol] 92.7 fL Normal 80-94 [facility] Comment on above: Order Comment: 413.2 Performed By: #### L 500.4050, L100.0100, [id number] #### [facility] [address] [place], [address] Monocytes/100 WBC (Bld) 15.6 % High 0-10 [facility] Comment on above: Order Comment: 413.2 Performed By: #### L 500.4050, L100.0100, [id number] #### [facility] [address] [place], [address] Neutrophils/100 WBC (Bld) 56.7 % Normal 47-70 [facility] Comment on above: Order Comment: 413.2 Performed By: #### L 500.4050, L100.0100, [id number] #### [facility] [address] [place], [address] Nucleated RBC (Bld) [#/Vol] 0 10*3/uL Normal 0-5 [facility] Comment on above: Order Comment: 413.2 Performed By: #### L 500.4050, L100.0100, [id number] #### [facility] [address] [place], [address] Platelet mean volume (Bld) [Entitic vol] 9.2 fL Normal 6.2-12.0 [facility] Comment on above: Order Comment: 413.2 Performed By: #### L 500.4050, L100.0100, [id number] #### [facility] [address] [place], [address] Platelets (Bld) [#/Vol] 358 10*3/uL Normal 150-450 [facility] Comment on above: Order Comment: 413.2 Performed By: #### L 500.4050, L100.0100, [id number] #### [facility] [address] [place], [address] RBC (Bld) [#/Vol] 3.03 10*6/uL Low 4.6-6.[address] [facility] Comment on above: Order Comment: 413.2 Performed By: #### L 500.4050, L100.0100, [id number] #### [facility] [address] [place], [address] RDW SD 63.1 fl High 35.1-43.9 [facility] Comment on above: Order Comment: 413.2 Performed By: #### L 500.4050, L100.0100, [id number] #### [facility] [address] [place], [address] WBC (Bld) [#/Vol] 8.1 10*3/uL Normal 4.4-11.[address] [facility] Comment on above: Order Comment: 413.2 Performed By: #### L 500.4050, L100.0100, [id number] #### [facility] [address] [place], [address] Carbon dioxide, total [Moles /volume] in Central venous bloodOrdered By: Kayley Melendrez on 02-05-2025 CO2 [Moles/Vol] 25.9 mmol/L 21.0-32.0 [facility] Chloride assayOrdered By: Carmen Melendrez on 02-05-2025 Chloride [Moles/Vol] 93 mmol/L Low 98-108 [facility] Comprehensive Metabolic Prof ilon 02-05-2025 Albumin [Mass/Vol] 3.1 g/dL Low 3.5-5.[address] [facility] Comment on above: Order Comment: 413.2 Performed By: #### L 500.4050, L100.0100, [id number] #### [facility] [address] [place], [address] Albumin/Globulin [Mass ratio] 0.7 {ratio} Low 0.9-2.4 [facility] Comment on above: Order Comment: 413.2 Performed By: #### L 500.4050, L100.0100, [id number] #### [facility] [address] [place], [address] ALK PHOS 260 U/L High 40-129 [facility] Comment on above: Order Comment: 413.2 Performed By: #### L 500.4050, L100.0100, [id number] #### [facility] [address] [place], [address] ALT [Catalytic activity/Vol] 11 U/L Normal <=46 [facility] Comment on above: Order Comment: 413.2 Performed By: #### L 500.4050, L100.0100, [id number] #### [facility] [address] [place], [address] AST [Catalytic activity/Vol] 42 U/L High <=37 [facility] Comment on above: Order Comment: 413.2 Performed By: #### L 500.4050, L100.0100, [id number] #### [facility] [address] [place], [address] Bilirubin [Mass/Vol] 0.81 mg/dL Normal 0.00-1.30 [facility] Comment on above: Order Comment: 413.2 Performed By: #### L 500.4050, L100.0100, [id number] #### [facility] [address] [place], [address] BUN/CRE 4.1 RATIO Low 10-20 [facility] Comment on above: Order Comment: 413.2 Performed By: #### L 500.4050, L100.0100, [id number] #### [facility] [address] [place], [address] Calcium [Mass/Vol] 10.0 mg/dL Normal 7.6-11.[address] [facility] Comment on above: Order Comment: 413.2 Performed By: #### L 500.4050, L100.0100, [id number] #### [facility] [address] [place], [address] Chloride [Moles/Vol] 93 mmol/L Low 98-108 [facility] Comment on above: Order Comment: 413.2 Performed By: #### L 500.4050, L100.0100, [id number] #### [facility] [address] [place], [address] CO2 [Moles/Vol] 25.9 mmol/L Normal 21.0-32.0 [facility] Comment on above: Order Comment: 413.2 Performed By: #### L 500.4050, L100.0100, [id number] #### [facility] [address] [place], [address] Creatinine [Mass/Vol] 5.27 mg/dL High 0.70-1.20 [facility] Comment on above: Order Comment: 413.2 Performed By: #### L 500.4050, L100.0100, [id number] #### [facility] [address] [place], [address] GAP 18 High 5-15 [facility] Comment on above: Order Comment: 413.2 Performed By: #### L 500.4050, L100.0100, [id number] #### [facility] [address] [place], [address] GFR/1.73 sq M.predicted among non-blacks MDRD (S/P/Bld) [Vol rate/Area] 12 mL/min/{1.73_m2} Low >60 [facility] Comment on above: Order Comment: 413.2 Result Comment: mL/m in/1.73m2 CKD-EPI Creatinine Equation (2020) Performed By: #### L 500.4050, L100.0100, [id number] #### [facility] [address] [place], [address] Globulin (S) [Mass/Vol] 4.3 g/dL High 2.2-4.2 [facility] Comment on above: Order Comment: 413.2 Performed By: #### L 500.4050, L100.0100, [id number] #### [facility] [address] [place], [address] Glucose [Mass/Vol] 65 mg/dL Low 70-[address] [facility] Comment on above: Order Comment: 413.2 Performed By: #### L 500.4050, L100.0100, [id number] #### [facility] [address] [place], [address] Potassium [Moles/Vol] 4.5 mmol/L Normal 3.3-5.1 [facility] Comment on above: Order Comment: 413.2 Performed By: #### L 500.4050, L100.0100, [id number] #### [facility] [address] [place], [address] Sodium [Moles/Vol] 136 mmol/L Normal 133-[address] [facility] Comment on above: Order Comment: 413.2 Performed By: #### L 500.4050, L100.0100, [id number] #### [facility] [address] [place], [address] T PROT 7.4 g/dL Normal 5.9-8.4 [facility] Comment on above: Order Comment: 413.2 Performed By: #### L 500.4050, L100.0100, [id number] #### [facility] [address] [place], [address] Urea nitrogen [Mass/Vol] 22 mg/dL High 4-19 [facility] Comment on above: Order Comment: 413.2 Performed By: #### L 500.4050, L100.0100, L300.3900 #### [facility] [address] [place], [address] Eosinophil percentageOrdered By: Kayley Melendrez on 02-05-2025 Eosinophils/100 WBC (Bld) 4.1 % 0-5 [facility] Erythrocyte distribution wid th ratioOrdered By: Kayley Melendrez on 02-05-2025 Erythrocyte distribution width (RBC) [Ratio] 18.8 % High 11.6-14.6 [facility] Erythrocyte distribution wid th standard deviationOrdered By: Kayley Melendrez on 02-05-2025 Erythrocyte distribution width (RBC) [Ratio] 63.1 fl High 35.1-43.9 [facility] [facility] Glomerular filtration rate ( GFR) estimation/1.73 sq m using serum, plasma, or whole bOrdered By: Kayley Melendrez on 02-05-2025 GFR/1.73 sq M.predicted among non-blacks MDRD (S/P/Bld) [Vol rate/Area] 12 mL/min/{1.73_m2} Low >60 [facility] Comment on above: mL/min/1.73m2 CKD-EP I Creatinine Equation (2020) Hematocrit Auto (Bld) [Volum e fraction]Ordered By: Kayley Melendrez on 02-05-2025 Hematocrit (Bld) [Volume fraction] 28.1 % Low 40-54 [facility] Hemoglobin measurementOrdere d By: Kayley Melendrez on 02-05-2025 Hemoglobin (Bld) [Mass/Vol] 8.8 g/dL Low 13.0-16.5 [facility] Immature granulocytes/100 WB C Auto (Bld)Ordered By: Kayley Melendrez on 02-05-2025 Immature granulocytes/100 WBC (Bld) 0.600 % 0.0-0.9 [facility] Comment on above: IG% - Immature Granu locytes (promyelocytes, myelocytes and metamyelocytes) > 1% indicates that a LEFT SHIFT is Present. Laboratory - Chemistry and C hemistry - challengeOrdered By: Kayley Melendrez on 02-05-2025 AST [Catalytic activity/Vol] 42 U/L High <38 [facility] MCV (mean corpuscular volume ) determinationOrdered By: Kayley Melendrez on 02-05-2025 MCV (RBC) [Entitic vol] 92.7 fL 80-94 [facility] Mean corpuscular hemoglobin (MCH) determinationOrdered By: Kayley Melendrez on 02-05-2025 MCH (RBC) [Entitic mass] 29.0 pg 27.0-32.0 [facility] Mean corpuscular hemoglobin concentration (MCHC) determinationOrdered By: Kayley Melendrez on 02-05-2025 MCHC (RBC) [Mass/Vol] 31.3 g/dL Low 32-36 [facility] Mean platelet volume determi nationOrdered By: Kayley Melendrez on 02-05-2025 Platelet mean volume (Bld) [Entitic vol] 9.2 fL 6.2-12.0 [facility] Monocyte percentageOrdered B y: Kayley Melendrez on 02-05-2025 Monocytes/100 WBC (Bld) 15.6 % High 0-10 [facility] Neutrophil percentageOrdered By: Kayley Melendrez on 02-05-2025 Neutrophils/100 WBC (Bld) 56.7 % 47-70 [facility] Nucleated red blood cell per centageOrdered By: Kayley Melendrez on 02-05-2025 Nucleated RBC/100 WBC (Bld) [Ratio] 0 % 0-5 [facility] Platelet countOrdered By: Carmen Melendrez on 02-05-2025 Platelets (Bld) [#/Vol] 358 10*3/uL 150-450 [facility] Potassium measurement (mass/ volume)Ordered By: Kayley Melendrez on 02-05-2025 Potassium (Unsp spec) [Mass/Vol] 4.5 mmol/L 3.3-5.1 [facility] RBC Auto (Bld) [#/Vol]Ordere d By: Kayley Melendrez on 02-05-2025 RBC (Bld) [#/Vol] 3.03 10*6/uL Low 4.6-6.[address] [facility] Serum creatinine measurement (mass/volume)Ordered By: Kayley Melendrez on 02-05-2025 Creatinine [Mass/Vol] 5.27 mg/dL High 0.70-1.20 [facility] Serum globulin measurementOr dered By: Kayley Melendrez on 02-05-2025 Globulin (S) [Mass/Vol] 4.3 g/dL High 2.2-4.2 [facility] Serum glucose measurement (m ass/volume)Ordered By: Kayley Melendrez on 02-05-2025 Glucose [Mass/Vol] 65 mg/dL Low 70-[address] [facility] Serum or plasma alanine mayorga otransferase (ALT) measurementOrdered By: Kayley Melendrez on 02-05-2025 ALT [Catalytic activity/Vol] 11 U/L <47 [facility] Serum or plasma albumin audrey urement (mass/volume)Ordered By: Kayley Melendrez on 02-05-2025 Albumin [Mass/Vol] 3.1 g/dL Low 3.5-5.[address] [facility] Serum or plasma albumin/glob ulin mass ratioOrdered By: Kayley Melendrez on 02-05-2025 Albumin/Globulin [Mass ratio] 0.7 {ratio} Low 0.9-2.4 [facility] Serum or plasma alkaline jacob sphatase measurementOrdered By: Kayley Melendrez on 02-05-2025 ALP [Catalytic activity/Vol] 260 U/L High 40-129 [facility] Serum or plasma calcium audrey urement (mass/volume)Ordered By: Kayley Melendrez on 02-05-2025 Calcium [Mass/Vol] 10.0 mg/dL 7.6-11.[address] [facility] Serum or plasma urea nitroge n measurement (mass/volume)Ordered By: Kayley Melendrez on 02-05-2025 Urea nitrogen [Mass/Vol] 22 mg/dL High 4-19 [facility] Sodium levelOrdered By: Lexismatt vásquez Parvin on 02-05-2025 Sodium [Moles/Vol] 136 mmol/L 133-[address] [facility] Total proteinOrdered By: Lexis Melendrez on 02-05-2025 Protein [Mass/Vol] 7.4 g/dL 5.9-8.[address] [facility] White blood cell (WBC) count Ordered By: Lexisamparo Melendrez on 02-05-2025 WBC (Bld) [#/Vol] 8.1 10*3/uL 4.4-11.[address] [facility] CBC panel Auto (Bld)on 02-01 Erythrocyte distribution width (RBC) [Ratio] 18.8 % High 11.5 - 15.0 % [facility] Hematocrit (Bld) [Volume fraction] 28.3 % Low 40.0 - 52.0 % [facility] Hemoglobin (Bld) [Mass/Vol] 8.9 g/dL Low 13.0 - 18.0 g/dL [facility] Interpretation and review of laboratory results Abnormal [facility] MCH (RBC) [Entitic mass] 28.2 pg 26. 0 - 34.0 pg [facility] MCHC (RBC) [Mass/Vol] 31.4 % 30.5 - 36.0 % [facility] MCV (RBC) [Entitic vol] 89.6 fL 77.0 - 99.0 fL [facility] Platelet mean volume (Bld) [Entitic vol] 9 fL 9.0 - 12.7 fL [facility] Platelets (Bld) [#/Vol] 282 10*3/uL 140 - 440 10*3/uL [facility] RBC (Bld) [#/Vol] 3.16 10*6/uL Low 4.40 - 5.9 0 10*6/uL [facility] WBC (Bld) [#/Vol] 7.9 10*3/uL 3.6 - 10.7 10*3/uL [facility] Comprehensive metabolic 1998 panelon 02-01-2025 Albumin [Mass/Vol] 2.1 g/dL Low 3.5 - 5.0 g/dL [facility] ALP [Catalytic activity/Vol] 226 U/L High 40 - 150 U/L [facility] ALT [Catalytic activity/Vol] 10 U/L NINF - 40 U/L [facility] Anion gap [Moles/Vol] 11 mmol/L 3 - 13 mmol/L [facility] AST [Catalytic activity/Vol] 32 U/L NINF - 34 U/L [facility] Bilirubin [Mass/Vol] 0.9 mg/dL NINF - 1.2 mg/dL [facility] Calcium [Mass/Vol] 9.7 mg/dL 8.4 - 10. 2 mg/dL [facility] Chloride [Moles/Vol] 99 mmol/L 98 - 10 7 mmol/L [facility] CO2 [Moles/Vol] 26 mmol/L 22 - 29 mmol/L [facility] Creatinine [Mass/Vol] 2.39 mg/dL High 0.72 - 1.25 mg/dL [facility] GFR/1.73 sq M.predicted (S/P/Bld) [Vol rate/Area] 30.5 mL/min Low - PINF [facility] Glucose [Mass/Vol] 87 mg/dL 74 - 100 mg/dL [facility] Interpretation and review of laboratory results Abnormal [facility] Potassium [Moles/Vol] 3.7 mmol/L 3.5 - 5.1 mmol/L [facility] Protein [Mass/Vol] 7.4 g/dL 6.4 - 8.3 g/dL [facility] Sodium [Moles/Vol] 136 mmol/L 136 - 145 mmol/L [facility] Urea nitrogen [Mass/Vol] 7 mg/dL Low 9 - 23 mg/d L [facility] Hemoglobin (Bld) [Mass/Vol]O rdered By: Rosa Juares on 02-01-2025 Hematocrit (Bld) [Volume fraction] 28.8 % Low 40.0 - 52.0 % [facility] Interpretation and review of laboratory results Abnormal [facility] Laboratory - Chemistry and C hemistry - challengeon 02-01-2025 Magnesium [Mass/Vol] 1.9 mg/dL 1.6 - 2 .6 mg/dL [facility] Laboratory - Coagulationon 0 02-01-2025 PT Coag (Bld) [Time] 20.3 s High 9.0 - 12.0 s [facility] Laboratory - Hematology and Cell countsOrdered By: Rosa Juares on 02-01-2025 Hemoglobin (Bld) [Mass/Vol] 8.9 g/dL Low 13.0 - 18.0 g/dL [facility] Magnesium [Mass/Vol]on 02-01 [facility] No Panel Informationon 02-01 Interpretation and review of laboratory results Normal [facility] PT Coag (Bld) [Time]on 02-01 INR Coag (PPP) [Relative time] 2 {INR} High 0.9 - 1.1 [facility] Interpretation and review of laboratory results Abnormal [facility] Phosphate [Moles/Vol]on Phosphate [Mass/Vol] 3.4 mg/dL 2.3 - 4 .7 mg/dL [facility] CBC panel Auto (Bld)on 01-31 Erythrocyte distribution width (RBC) [Ratio] 19.2 % High 11.5 - 15.0 % [facility] Hematocrit (Bld) [Volume fraction] 27.9 % Low 40.0 - 52.0 % [facility] Hemoglobin (Bld) [Mass/Vol] 8.8 g/dL Low 13.0 - 18.0 g/dL [facility] Interpretation and review of laboratory results Abnormal [facility] MCH (RBC) [Entitic mass] 28.4 pg 26. 0 - 34.0 pg [facility] MCHC (RBC) [Mass/Vol] 31.5 % 30.5 - 36.0 % [facility] MCV (RBC) [Entitic vol] 90 fL 77.0 - 99.0 fL [facility] Platelet mean volume (Bld) [Entitic vol] 9 fL 9.0 - 12.7 fL [facility] Platelets (Bld) [#/Vol] 278 10*3/uL 140 - 440 10*3/uL [facility] RBC (Bld) [#/Vol] 3.1 10*6/uL Low 4.40 - 5.9 0 10*6/uL [facility] WBC (Bld) [#/Vol] 9.3 10*3/uL 3.6 - 10.7 10*3/uL [facility] Comprehensive metabolic 1998 panelon 01-31-2025 Albumin [Mass/Vol] 2.1 g/dL Low 3.5 - 5.0 g/dL [facility] ALP [Catalytic activity/Vol] 218 U/L High 40 - 150 U/L [facility] ALT [Catalytic activity/Vol] 11 U/L NINF - 40 U/L [facility] Anion gap [Moles/Vol] 12 mmol/L 3 - 13 mmol/L [facility] AST [Catalytic activity/Vol] 31 U/L NINF - 34 U/L [facility] Bilirubin [Mass/Vol] 0.8 mg/dL NINF - 1.2 mg/dL [facility] Calcium [Mass/Vol] 10 mg/dL 8.4 - 10. 2 mg/dL [facility] Chloride [Moles/Vol] 99 mmol/L 98 - 10 7 mmol/L [facility] CO2 [Moles/Vol] 27 mmol/L 22 - 29 mmol/L [facility] Creatinine [Mass/Vol] 3.64 mg/dL High 0.72 - 1.25 mg/dL [facility] GFR/1.73 sq M.predicted (S/P/Bld) [Vol rate/Area] 18.4 mL/min Low - PINF [facility] Glucose [Mass/Vol] 87 mg/dL 74 - 100 mg/dL [facility] Interpretation and review of laboratory results Abnormal [facility] Potassium [Moles/Vol] 4.3 mmol/L 3.5 - 5.1 mmol/L [facility] Protein [Mass/Vol] 7.3 g/dL 6.4 - 8.3 g/dL [facility] Sodium [Moles/Vol] 138 mmol/L 136 - 145 mmol/L [facility] Urea nitrogen [Mass/Vol] 15 mg/dL 9 - 23 mg/d L [facility] Hemoglobin (Bld) [Mass/Vol]o n 01-31-2025 Hematocrit (Bld) [Volume fraction] 28.8 % Low 40.0 - 52.0 % [facility] Interpretation and review of laboratory results Abnormal [facility] Laboratory - Chemistry and C hemistry - challengeon 01-31-2025 Magnesium [Mass/Vol] 2 mg/dL 1.6 - 2 .6 mg/dL [facility] Laboratory - Coagulationon 0 01-31-2025 PT Coag (Bld) [Time] 22.4 s High 9.0 - 12.0 s [facility] Laboratory - Hematology and Cell countson 01-31-2025 Hemoglobin (Bld) [Mass/Vol] 9.2 g/dL Low 13.0 - 18.0 g/dL [facility] Magnesium [Mass/Vol]on 01-31 [facility] No Panel Informationon 01-31 Interpretation and review of laboratory results Normal [facility] PT Coag (Bld) [Time]on 01-31 INR Coag (PPP) [Relative time] 2.2 {INR} High 0.9 - 1.1 [facility] Interpretation and review of laboratory results Abnormal [facility] Phosphate [Moles/Vol]on Phosphate [Mass/Vol] 4.6 mg/dL 2.3 - 4 .7 mg/dL [facility] Basic metabolic 1998 panelon 01-30-2025 Anion gap [Moles/Vol] 13 mmol/L 3 - 13 mmol/L [facility] Calcium [Mass/Vol] 9.6 mg/dL 8.4 - 10. 2 mg/dL [facility] Chloride [Moles/Vol] 99 mmol/L 98 - 10 7 mmol/L [facility] CO2 [Moles/Vol] 23 mmol/L 22 - 29 mmol/L [facility] Creatinine [Mass/Vol] 2.56 mg/dL High 0.72 - 1.25 mg/dL [facility] GFR/1.73 sq M.predicted (S/P/Bld) [Vol rate/Area] 28.1 mL/min Low - PINF [facility] Glucose [Mass/Vol] 88 mg/dL 74 - 100 mg/dL [facility] Interpretation and review of laboratory results Abnormal [facility] Potassium [Moles/Vol] 3.7 mmol/L 3.5 - 5.1 mmol/L [facility] Sodium [Moles/Vol] 135 mmol/L Low 136 - 145 mmol/L [facility] Urea nitrogen [Mass/Vol] 10 mg/dL 9 - 23 mg/d L [facility] CBC panel Auto (Bld)on 01-30 Erythrocyte distribution width (RBC) [Ratio] 18.9 % High 11.5 - 15.0 % [facility] Hematocrit (Bld) [Volume fraction] 28.1 % Low 40.0 - 52.0 % [facility] Hemoglobin (Bld) [Mass/Vol] 8.7 g/dL Low 13.0 - 18.0 g/dL [facility] Interpretation and review of laboratory results Abnormal [facility] MCH (RBC) [Entitic mass] 27.6 pg 26. 0 - 34.0 pg [facility] MCHC (RBC) [Mass/Vol] 31 % 30.5 - 36.0 % [facility] MCV (RBC) [Entitic vol] 89.2 fL 77.0 - 99.0 fL [facility] Platelet mean volume (Bld) [Entitic vol] 9.1 fL 9.0 - 12.7 fL [facility] Platelets (Bld) [#/Vol] 276 10*3/uL 140 - 440 10*3/uL [facility] RBC (Bld) [#/Vol] 3.15 10*6/uL Low 4.40 - 5.9 0 10*6/uL [facility] WBC (Bld) [#/Vol] 8.8 10*3/uL 3.6 - 10.7 10*3/uL [facility] Hemoglobin (Bld) [Mass/Vol]O rdered By: Rikki Caballero on 01-30-2025 Hematocrit (Bld) [Volume fraction] 31.5 % Low 40.0 - 52.0 % [facility] Interpretation and review of laboratory results Abnormal [facility] Laboratory - Chemistry and C hemistry - challengeon 01-30-2025 Glucose [Mass/Vol] 106 mg/dL High 70 - 100 mg/dL [facility] Glucose [Mass/Vol] 107 mg/dL High 70 - 100 mg/dL [facility] Glucose [Mass/Vol] 77 mg/dL 70 - 100 mg/dL [facility] Magnesium [Mass/Vol] 1.9 mg/dL 1.6 - 2 .6 mg/dL [facility] Laboratory - Coagulationon 0 01-30-2025 PT Coag (Bld) [Time] 24.9 s High 9.0 - 12.0 s [facility] Laboratory - Hematology and Cell countsOrdered By: Rikki Caballero on 01-30-2025 Hemoglobin (Bld) [Mass/Vol] 9.8 g/dL Low 13.0 - 18.0 g/dL [facility] Magnesium [Mass/Vol]on 01-30 Interpretation and review of laboratory results Normal [facility] No Panel Informationon 01-30 Interpretation and review of laboratory results Abnormal [facility] Radiology Study observation (narrative) [facility] Interpretation and review of laboratory results Abnormal [facility] Interpretation and review of laboratory results Normal [facility] Blood Expiration Date [id number] S [facility] Crossmatch interpretation COMP [facility] Dispense Status Released from [employer] [facility] Product Blood Type 9500 [facility] PRODUCT CODE [id number] [facility] ABO O [facility] Unit Number [id number] [facility] alth Unit RH Negative [facility] Unit Volume 300 mL [facility] No Panel InformationOrdered By: Jun Borrero on 01-30-2025 [facility] Work Phone: PT Coag (Bld) [Time]on 01-30 INR Coag (PPP) [Relative time] 2.5 {INR} High 0.9 - 1.1 [facility] Interpretation and review of laboratory results Abnormal [facility] Phosphate [Moles/Vol]on Interpretation and review of laboratory results Normal [facility] Phosphate [Mass/Vol] 3.7 mg/dL 2.3 - 4 .7 mg/dL [facility] Basic metabolic 1998 panelon 01-29-2025 Anion gap [Moles/Vol] 17 mmol/L High 3 - 13 mmol/L [facility] Calcium [Mass/Vol] 9.8 mg/dL 8.4 - 10. 2 mg/dL [facility] Chloride [Moles/Vol] 94 mmol/L Low 98 - 10 7 mmol/L [facility] CO2 [Moles/Vol] 23 mmol/L 22 - 29 mmol/L [facility] Creatinine [Mass/Vol] 4.17 mg/dL High 0.72 - 1.25 mg/dL [facility] GFR/1.73 sq M.predicted (S/P/Bld) [Vol rate/Area] 15.6 mL/min Low - PINF [facility] Glucose [Mass/Vol] 80 mg/dL 74 - 100 mg/dL [facility] Potassium [Moles/Vol] 3.7 mmol/L 3.5 - 5.1 mmol/L [facility] Sodium [Moles/Vol] 134 mmol/L Low 136 - 145 mmol/L [facility] Urea nitrogen [Mass/Vol] 21 mg/dL 9 - 23 mg/d L [facility] CBC panel Auto (Bld)on 01-29 Erythrocyte distribution width (RBC) [Ratio] 19 % High 11.5 - 15.0 % [facility] Hematocrit (Bld) [Volume fraction] 27.3 % Low 40.0 - 52.0 % [facility] Hemoglobin (Bld) [Mass/Vol] 8.6 g/dL Low 13.0 - 18.0 g/dL [facility] Interpretation and review of laboratory results Abnormal [facility] MCH (RBC) [Entitic mass] 28.1 pg 26. 0 - 34.0 pg [facility] MCHC (RBC) [Mass/Vol] 31.5 % 30.5 - 36.0 % [facility] MCV (RBC) [Entitic vol] 89.2 fL 77.0 - 99.0 fL [facility] Platelet mean volume (Bld) [Entitic vol] 9.4 fL 9.0 - 12.7 fL [facility] Platelets (Bld) [#/Vol] 271 10*3/uL 140 - 440 10*3/uL [facility] RBC (Bld) [#/Vol] 3.06 10*6/uL Low 4.40 - 5.9 0 10*6/uL [facility] WBC (Bld) [#/Vol] 9.4 10*3/uL 3.6 - 10.7 10*3/uL [facility] Laboratory - Chemistry and C hemistry - challengeon 01-29-2025 Glucose [Mass/Vol] 82 mg/dL 70 - 100 mg/dL [facility] Glucose [Mass/Vol] 87 mg/dL 70 - 100 mg/dL [facility] Glucose [Mass/Vol] 91 mg/dL 70 - 100 mg/dL [facility] Magnesium [Mass/Vol] 2 mg/dL 1.6 - 2 .6 mg/dL [facility] Laboratory - Coagulationon 0 01-29-2025 Coagulation factor VIII activity actual/normal Coag (PPP) [Relative time] 412 % High 56 - 191 % [facility] vWf Ag actual/normal IA (PPP) [Relative mass conc] 281 % High 52 - 214 % [facility] vWf multimers Ql (PPP) See Note [facility] vWf ristocetin cofactor act actual/normal Platelet aggregation (PPP) [Relative time] 200 % 51 - 215 % [facility] th PT Coag (Bld) [Time] 24 s High 9.0 - 12.0 s [facility] Magnesium [Mass/Vol]on 01-29 Interpretation and review of laboratory results Normal [facility] No Panel Informationon 01-29 Interpretation and review of laboratory results Normal [facility] Interpretation and review of laboratory results Normal [facility] Interpretation and review of laboratory results Abnormal [facility] Interpretation and review of laboratory results Normal [facility] Interpretation and review of laboratory results Abnormal [facility] Interpretation and review of laboratory results Abnormal [facility] PT Coag (Bld) [Time]on 01-29 INR Coag (PPP) [Relative time] 2.4 {INR} High 0.9 - 1.1 [facility] Phosphate [Moles/Vol]on Phosphate [Mass/Vol] 4.9 mg/dL High 2.3 - 4 .7 mg/dL [facility] aPTT Coag (Bld) [Time]on aPTT Coag (PPP) [Time] 51.4 s High 20.0 - 30.5 s [facility] Basic metabolic 1998 panelon 01-28-2025 Anion gap [Moles/Vol] 13 mmol/L 3 - 13 mmol/L [facility] Calcium [Mass/Vol] 10 mg/dL 8.4 - 10. 2 mg/dL [facility] Chloride [Moles/Vol] 98 mmol/L 98 - 10 7 mmol/L [facility] CO2 [Moles/Vol] 26 mmol/L 22 - 29 mmol/L [facility] Creatinine [Mass/Vol] 3.37 mg/dL High 0.72 - 1.25 mg/dL [facility] GFR/1.73 sq M.predicted (S/P/Bld) [Vol rate/Area] 20.2 mL/min Low - PINF [facility] Glucose [Mass/Vol] 82 mg/dL 74 - 100 mg/dL [facility] Interpretation and review of laboratory results Abnormal [facility] Potassium [Moles/Vol] 3.6 mmol/L 3.5 - 5.1 mmol/L [facility] Sodium [Moles/Vol] 137 mmol/L 136 - 145 mmol/L [facility] Urea nitrogen [Mass/Vol] 14 mg/dL 9 - 23 mg/d L [facility] CBC panel Auto (Bld)on 01-28 Erythrocyte distribution width (RBC) [Ratio] 19 % High 11.5 - 15.0 % [facility] Hematocrit (Bld) [Volume fraction] 26.3 % Low 40.0 - 52.0 % [facility] Hemoglobin (Bld) [Mass/Vol] 8.5 g/dL Low 13.0 - 18.0 g/dL [facility] Interpretation and review of laboratory results Abnormal [facility] MCH (RBC) [Entitic mass] 28.2 pg 26. 0 - 34.0 pg [facility] MCHC (RBC) [Mass/Vol] 32.3 % 30.5 - 36.0 % [facility] MCV (RBC) [Entitic vol] 87.4 fL 77.0 - 99.0 fL [facility] Platelet mean volume (Bld) [Entitic vol] 9.3 fL 9.0 - 12.7 fL [facility] Platelets (Bld) [#/Vol] 240 10*3/uL 140 - 440 10*3/uL [facility] RBC (Bld) [#/Vol] 3.01 10*6/uL Low 4.40 - 5.9 0 10*6/uL [facility] WBC (Bld) [#/Vol] 9.8 10*3/uL 3.6 - 10.7 10*3/uL [facility] Laboratory - Chemistry and C hemistry - challengeon 01-28-2025 Glucose [Mass/Vol] 127 mg/dL High 70 - 100 mg/dL [facility] Magnesium [Mass/Vol] 2 mg/dL 1.6 - 2 .6 mg/dL [facility] Laboratory - Coagulationon 0 01-28-2025 PT Coag (Bld) [Time] 21.9 s High 9.0 - 12.0 s [facility] Magnesium [Mass/Vol]on 01-28 Interpretation and review of laboratory results Normal [facility] No Panel Informationon 01-28 Interpretation and review of laboratory results Abnormal [facility] Interpretation and review of laboratory results Abnormal [facility] PT Coag (Bld) [Time]on 01-28 INR Coag (PPP) [Relative time] 2.2 {INR} High 0.9 - 1.1 [facility] Phosphate [Moles/Vol]on Interpretation and review of laboratory results Abnormal [facility] Phosphate [Mass/Vol] 4.9 mg/dL High 2.3 - 4 .7 mg/dL [facility] aPTT Coag (Bld) [Time]on aPTT Coag (PPP) [Time] 49 s High 20.0 - 30.5 s [facility] Interpretation and review of laboratory results Abnormal [facility] aPTT Coag (PPP) [Time] 46.3 s High 20.0 - 30.5 s [facility] Basic metabolic 1998 panelon 01-27-2025 Anion gap [Moles/Vol] 17 mmol/L High 3 - 13 mmol/L [facility] [facility] Calcium [Mass/Vol] 9.9 mg/dL 8.4 - 10. 2 mg/dL [facility] Chloride [Moles/Vol] 99 mmol/L 98 - 10 7 mmol/L [facility] CO2 [Moles/Vol] 23 mmol/L 22 - 29 mmol/L [facility] Creatinine [Mass/Vol] 2.27 mg/dL High 0.72 - 1.25 mg/dL [facility] GFR/1.73 sq M.predicted (S/P/Bld) [Vol rate/Area] 32.4 mL/min Low - PINF [facility] Glucose [Mass/Vol] 115 mg/dL High 74 - 100 mg/dL [facility] Interpretation and review of laboratory results Abnormal [facility] Potassium [Moles/Vol] 3.9 mmol/L 3.5 - 5.1 mmol/L [facility] Sodium [Moles/Vol] 139 mmol/L 136 - 145 mmol/L [facility] Urea nitrogen [Mass/Vol] 9 mg/dL 9 - 23 mg/d L [facility] CBC panel Auto (Bld)on 01-27 Erythrocyte distribution width (RBC) [Ratio] 19.1 % High 11.5 - 15.0 % [facility] Hematocrit (Bld) [Volume fraction] 28.3 % Low 40.0 - 52.0 % [facility] Hemoglobin (Bld) [Mass/Vol] 9 g/dL Low 13.0 - 18.0 g/dL [facility] Interpretation and review of laboratory results Abnormal [facility] MCH (RBC) [Entitic mass] 27.6 pg 26. 0 - 34.0 pg [facility] MCHC (RBC) [Mass/Vol] 31.8 % 30.5 - 36.0 % [facility] MCV (RBC) [Entitic vol] 86.8 fL 77.0 - 99.0 fL [facility] Platelet mean volume (Bld) [Entitic vol] 8.7 fL Low 9.0 - 12.7 fL [facility] Platelets (Bld) [#/Vol] 273 10*3/uL 140 - 440 10*3/uL [facility] RBC (Bld) [#/Vol] 3.26 10*6/uL Low 4.40 - 5.9 0 10*6/uL [facility] WBC (Bld) [#/Vol] 10 10*3/uL 3.6 - 10.7 10*3/uL [facility] Hemoglobin (Bld) [Mass/Vol]o n 01-27-2025 Hematocrit (Bld) [Volume fraction] 26.3 % Low 40.0 - 52.0 % [facility] Interpretation and review of laboratory results Abnormal [facility] Laboratory - Chemistry and C hemistry - challengeon 01-27-2025 Glucose [Mass/Vol] 102 mg/dL High 70 - 100 mg/dL [facility] Glucose [Mass/Vol] 127 mg/dL High 70 - 100 mg/dL [facility] Glucose [Mass/Vol] 87 mg/dL 70 - 100 mg/dL [facility] Magnesium [Mass/Vol] 1.9 mg/dL 1.6 - 2 .6 mg/dL [facility] Laboratory - Coagulationon 0 01-27-2025 PT Coag (Bld) [Time] 19.9 s High 9.0 - 12.0 s [facility] Laboratory - Hematology and Cell countson 01-27-2025 Hemoglobin (Bld) [Mass/Vol] 8.4 g/dL Low 13.0 - 18.0 g/dL [facility] Magnesium [Mass/Vol]on 01-27 [facility] No Panel Informationon 01-27 Interpretation and review of laboratory results Abnormal [facility] Interpretation and review of laboratory results Abnormal [facility] Interpretation and review of laboratory results Normal [facility] Interpretation and review of laboratory results Abnormal [facility] Interpretation and review of laboratory results Normal [facility] PT Coag (Bld) [Time]on 01-27 INR Coag (PPP) [Relative time] 1.9 {INR} High 0.9 - 1.1 [facility] Phosphate [Moles/Vol]on Phosphate [Mass/Vol] 3.4 mg/dL 2.3 - 4 .7 mg/dL [facility] aPTT Coag (Bld) [Time]on aPTT Coag (PPP) [Time] 47.9 s High 20.0 - 30.5 s [facility] Interpretation and review of laboratory results Abnormal [facility] aPTT Coag (PPP) [Time] 49.6 s High 20.0 - 30.5 s [facility] Interpretation and review of laboratory results Abnormal [facility] aPTT Coag (PPP) [Time] 45 s High 20.0 - 30.5 s [facility] Interpretation and review of laboratory results Abnormal [facility] aPTT Coag (PPP) [Time] 40.2 s High 20.0 - 30.5 s [facility] Basic metabolic 1998 panelon 01-26-2025 Anion gap [Moles/Vol] 16 mmol/L High 3 - 13 mmol/L [facility] Calcium [Mass/Vol] 9 mg/dL 8.4 - 10. 2 mg/dL [facility] Chloride [Moles/Vol] 100 mmol/L 98 - 10 7 mmol/L [facility] CO2 [Moles/Vol] 20 mmol/L Low 22 - 29 mmol/L [facility] Creatinine [Mass/Vol] 3.37 mg/dL High 0.72 - 1.25 mg/dL [facility] GFR/1.73 sq M.predicted (S/P/Bld) [Vol rate/Area] 20.2 mL/min Low - PINF [facility] Glucose [Mass/Vol] 75 mg/dL 74 - 100 mg/dL [facility] Interpretation and review of laboratory results Abnormal [facility] Potassium [Moles/Vol] 5.1 mmol/L 3.5 - 5.1 mmol/L [facility] Sodium [Moles/Vol] 136 mmol/L 136 - 145 mmol/L [facility] Urea nitrogen [Mass/Vol] 19 mg/dL 9 - 23 mg/d L [facility] CBC panel Auto (Bld)Ordered By: Brandy Ross on 01-26-2025 Erythrocyte distribution width (RBC) [Ratio] 19.3 % High 11.5 - 15.0 % [facility] Hematocrit (Bld) [Volume fraction] 21 % Low 40.0 - 52.0 % [facility] Hemoglobin (Bld) [Mass/Vol] 6.7 g/dL Critically low 13.0 - 18.0 g/dL [facility] Interpretation and review of laboratory results Abnormal [facility] MCH (RBC) [Entitic mass] 27.8 pg 26. 0 - 34.0 pg [facility] MCHC (RBC) [Mass/Vol] 31.9 % 30.5 - 36.0 % [facility] MCV (RBC) [Entitic vol] 87.1 fL 77.0 - 99.0 fL [facility] Platelet mean volume (Bld) [Entitic vol] 10 fL 9.0 - 12.7 fL [facility] Platelets (Bld) [#/Vol] 265 10*3/uL 140 - 440 10*3/uL [facility] RBC (Bld) [#/Vol] 2.41 10*6/uL Low 4.40 - 5.9 0 10*6/uL [facility] WBC (Bld) [#/Vol] 8.7 10*3/uL 3.6 - 10.7 10*3/uL [facility] HBV surface Ab IA Qnon 01-26 [facility] HBV surface Ag IA Qlon 01-26 Interpretation and review of laboratory results Normal [facility] Hemoglobin (Bld) [Mass/Vol]o n 01-26-2025 Hematocrit (Bld) [Volume fraction] 27.9 % Low 40.0 - 52.0 % [facility] Interpretation and review of laboratory results Abnormal [facility] Hematocrit (Bld) [Volume fraction] 28.4 % Low 40.0 - 52.0 % [facility] Interpretation and review of laboratory results Abnormal [facility] Laboratory - Chemistry and C hemistry - challengeon 01-26-2025 Magnesium [Mass/Vol] 2 mg/dL 1.6 - 2 .6 mg/dL [facility] Laboratory - Coagulationon 0 01-26-2025 PT Coag (Bld) [Time] 18.3 s High 9.0 - 12.0 s [facility] Laboratory - Hematology and Cell countson 01-26-2025 Hemoglobin (Bld) [Mass/Vol] 9 g/dL Low 13.0 - 18.0 g/dL [facility] Hemoglobin (Bld) [Mass/Vol] 8.9 g/dL Low 13.0 - 18.0 g/dL [facility] Laboratory - Microbiology an d Antimicrobial susceptibilityon 01-26-2025 HBV surface Ab IA Qn mIU/mL [facility] HBV surface Ag IA Ql Not detected Not Detected [facility] Magnesium [Mass/Vol]on 01-26 Interpretation and review of laboratory results Normal [facility] No Panel Informationon 01-26 [facility] Blood Expiration Date [id number] S [facility] Crossmatch interpretation COMP [facility] Dispense Status Transfused [facility] Product Blood Type 9500 [facility] PRODUCT CODE [id number] [facility] ABO O [facility] Unit Number [id number] [facility] Unit RH Negative [facility] Unit Volume 300 mL [facility] Interpretation and review of laboratory results Abnormal [facility] PT Coag (Bld) [Time]on 01-26 INR Coag (PPP) [Relative time] 1.8 {INR} High 0.9 - 1.1 [facility] Phosphate [Moles/Vol]on Interpretation and review of laboratory results Abnormal [facility] Phosphate [Mass/Vol] 5.3 mg/dL High 2.3 - 4 .7 mg/dL [facility] aPTT Coag (Bld) [Time]on aPTT Coag (PPP) [Time] 41.6 s High 20.0 - 30.5 s [facility] Interpretation and review of laboratory results Abnormal [facility] aPTT Coag (PPP) [Time] 47 s High 20.0 - 30.5 s [facility] aPTT Coag (Bld) [Time]Ordere d By: Alan Santos on 01-26-2025 aPTT Coag (PPP) [Time] s Critically high 20.0 - 3 0.5 s [facility] Interpretation and review of laboratory results Abnormal [facility] Basic metabolic 1998 panelon 01-25-2025 Anion gap [Moles/Vol] 16 mmol/L High 3 - 13 mmol/L [facility] Calcium [Mass/Vol] 10.1 mg/dL 8.4 - 10. 2 mg/dL [facility] Chloride [Moles/Vol] 98 mmol/L 98 - 10 7 mmol/L [facility] CO2 [Moles/Vol] 24 mmol/L 22 - 29 mmol/L [facility] Creatinine [Mass/Vol] 2.54 mg/dL High 0.72 - 1.25 mg/dL [facility] GFR/1.73 sq M.predicted (S/P/Bld) [Vol rate/Area] 28.3 mL/min Low - PINF [facility] Glucose [Mass/Vol] 74 mg/dL 74 - 100 mg/dL [facility] Interpretation and review of laboratory results Abnormal [facility] Potassium [Moles/Vol] 3.9 mmol/L 3.5 - 5.1 mmol/L [facility] Sodium [Moles/Vol] 138 mmol/L 136 - 145 mmol/L [facility] Urea nitrogen [Mass/Vol] 15 mg/dL 9 - 23 mg/d L [facility] Blood type and Crossmatch greg guan (Bld)on 01-25-2025 ABO group Nom (Bld) O [facility] Blood group antibody screen GEL Ql Negative [facility] D Ag Ql (RBC) Negative [facility] CBC panel Auto (Bld)on 01-25 Erythrocyte distribution width (RBC) [Ratio] 19.2 % High 11.5 - 15.0 % [facility] Hematocrit (Bld) [Volume fraction] 22.5 % Low 40.0 - 52.0 % [facility] Hemoglobin (Bld) [Mass/Vol] 7 g/dL Low 13.0 - 18.0 g/dL [facility] Interpretation and review of laboratory results Abnormal [facility] MCH (RBC) [Entitic mass] 27.6 pg 26. 0 - 34.0 pg [facility] MCHC (RBC) [Mass/Vol] 31.1 % 30.5 - 36.0 % [facility] MCV (RBC) [Entitic vol] 88.6 fL 77.0 - 99.0 fL [facility] Platelet mean volume (Bld) [Entitic vol] 8.8 fL Low 9.0 - 12.7 fL [facility] Platelets (Bld) [#/Vol] 285 10*3/uL 140 - 440 10*3/uL [facility] RBC (Bld) [#/Vol] 2.54 10*6/uL Low 4.40 - 5.9 0 10*6/uL [facility] WBC (Bld) [#/Vol] 10.2 10*3/uL 3.6 - 10.7 10*3/uL [facility] Hemoglobin (Bld) [Mass/Vol]o n 01-25-2025 Hematocrit (Bld) [Volume fraction] 23.8 % Low 40.0 - 52.0 % [facility] Interpretation and review of laboratory results Abnormal [facility] Hematocrit (Bld) [Volume fraction] 24.4 % Low 40.0 - 52.0 % [facility] Interpretation and review of laboratory results Abnormal [facility] Hematocrit (Bld) [Volume fraction] 24.6 % Low 40.0 - 52.0 % [facility] Interpretation and review of laboratory results Abnormal [facility] Hematocrit (Bld) [Volume fraction] 20.4 % Low 40.0 - 52.0 % [facility] Interpretation and review of laboratory results Abnormal [facility] Laboratory - Chemistry and C hemistry - challengeon 01-25-2025 Magnesium [Mass/Vol] 2.1 mg/dL 1.6 - 2 .6 mg/dL [facility] Laboratory - Coagulationon 0 01-25-2025 PT Coag (Bld) [Time] 17.4 s High 9.0 - 12.0 s [facility] PT Coag (Bld) [Time] 15.9 s High 9.0 - 12.0 s [facility] Laboratory - Hematology and Cell countson 01-25-2025 Hemoglobin (Bld) [Mass/Vol] 7.6 g/dL Low 13.0 - 18.0 g/dL [facility] Hemoglobin (Bld) [Mass/Vol] 7.7 g/dL Low 13.0 - 18.0 g/dL [facility] Hemoglobin (Bld) [Mass/Vol] 8 g/dL Low 13.0 - 18.0 g/dL [facility] Hemoglobin (Bld) [Mass/Vol] 6.3 g/dL Critically low 13.0 - 18.0 g/dL [facility] Laboratory - Microbiology an d Antimicrobial susceptibilityon 01-25-2025 A. baumannii DNA EMMANUEL+probe Ql (Unsp spec) Not detected Not Detected [facility] Laboratory - Microbiology an d Antimicrobial susceptibilityOrdered By: Petra Harris on 01-25-2025 C. auris ITS2 gene EMMANUEL+probe Ql (Unsp spec) Not detected Not Detected [facility] Magnesium [Mass/Vol]on 01-25 [facility] No Panel Informationon 01-25 Interpretation and review of laboratory results Normal [facility] Blood Expiration Date [id number] S [facility] Crossmatch interpretation COMP [facility] Dispense Status Transfused [facility] Product Blood Type 9500 [facility] PRODUCT CODE [id number] [facility] ABO O [facility] Unit Number [id number] [facility] Unit RH Negative [facility] Unit Volume 300 mL [facility] Interpretation and review of laboratory results Normal [facility] No Panel InformationOrdered By: Petra Harris on 01-25-2025 Interpretation and review of laboratory results Normal [facility] PT Coag (Bld) [Time]on 01-25 INR Coag (PPP) [Relative time] 1.7 {INR} High 0.9 - 1.1 [facility] Interpretation and review of laboratory results Abnormal [facility] INR Coag (PPP) [Relative time] 1.5 {INR} High 0.9 - 1.1 [facility] Interpretation and review of laboratory results Abnormal [facility] Phosphate [Moles/Vol]on Phosphate [Mass/Vol] 3.9 mg/dL 2.3 - 4 .7 mg/dL [facility] RF videography Hypopharynx a nd Esophagus Views for swallowing function W speech and W barium contrast Juan Carlos 01-25-2025 [facility] RADIOLOGY [facility] RADIOLOGY [facility] Radiology Study observation (narrative) [facility] RF videography Hypopharynx a nd Esophagus Views for swallowing function W speech and W barium contrast POOrdered By: Sulaiman Harp on 01-25-2025 [facility] Work Phone: aPTT Coag (Bld) [Time]on aPTT Coag (PPP) [Time] s Critically high 20.0 - 3 0.5 s [facility] Interpretation and review of laboratory results Abnormal [facility] aPTT Coag (PPP) [Time] 83.1 s High 20.0 - 30.5 s [facility] Interpretation and review of laboratory results Abnormal [facility] aPTT Coag (PPP) [Time] 47.3 s High 20.0 - 30.5 s [facility] Interpretation and review of laboratory results Abnormal [facility] Basic metabolic 1998 panelon 01-24-2025 Anion gap [Moles/Vol] 12 mmol/L 3 - 13 mmol/L [facility] Calcium [Mass/Vol] 9.3 mg/dL 8.4 - 10. 2 mg/dL [facility] Chloride [Moles/Vol] 100 mmol/L 98 - 10 7 mmol/L [facility] CO2 [Moles/Vol] 26 mmol/L 22 - 29 mmol/L [facility] Creatinine [Mass/Vol] 1.47 mg/dL High 0.72 - 1.25 mg/dL [facility] GFR/1.73 sq M.predicted (S/P/Bld) [Vol rate/Area] 54.6 mL/min Low - PINF [facility] Glucose [Mass/Vol] 77 mg/dL 74 - 100 mg/dL [facility] Interpretation and review of laboratory results Abnormal [facility] Potassium [Moles/Vol] 3.5 mmol/L 3.5 - 5.1 mmol/L [facility] Sodium [Moles/Vol] 138 mmol/L 136 - 145 mmol/L [facility] Urea nitrogen [Mass/Vol] 9 mg/dL 9 - 23 mg/d L [facility] Anion gap [Moles/Vol] 20 mmol/L High 3 - 13 mmol/L [facility] Calcium [Mass/Vol] 10.2 mg/dL 8.4 - 10. 2 mg/dL [facility] Chloride [Moles/Vol] 98 mmol/L 98 - 10 7 mmol/L [facility] CO2 [Moles/Vol] 21 mmol/L Low 22 - 29 mmol/L [facility] Creatinine [Mass/Vol] 3.62 mg/dL High 0.72 - 1.25 mg/dL [facility] GFR/1.73 sq M.predicted (S/P/Bld) [Vol rate/Area] 18.5 mL/min Low - PINF [facility] Glucose [Mass/Vol] 74 mg/dL 74 - 100 mg/dL [facility] Potassium [Moles/Vol] 4 mmol/L 3.5 - 5.1 mmol/L [facility] Sodium [Moles/Vol] 139 mmol/L 136 - 145 mmol/L [facility] Urea nitrogen [Mass/Vol] 27 mg/dL High 9 - 23 mg/d L [facility] CBC panel Auto (Bld)Ordered By: Liseth Granado on 01-24-2025 Erythrocyte distribution width (RBC) [Ratio] 19.4 % High 11.5 - 15.0 % [facility] Hematocrit (Bld) [Volume fraction] 27 % Low 40.0 - 52.0 % [facility] Hemoglobin (Bld) [Mass/Vol] 8 g/dL Low 13.0 - 18.0 g/dL [facility] Interpretation and review of laboratory results Abnormal [facility] MCH (RBC) [Entitic mass] 27.9 pg 26. 0 - 34.0 pg [facility] MCHC (RBC) [Mass/Vol] 29.6 % Low 30.5 - 36.0 % [facility] MCV (RBC) [Entitic vol] 94.1 fL 77.0 - 99.0 fL [facility] Platelet mean volume (Bld) [Entitic vol] 9.2 fL 9.0 - 12.7 fL [facility] Platelets (Bld) [#/Vol] 355 10*3/uL 140 - 440 10*3/uL [facility] RBC (Bld) [#/Vol] 2.87 10*6/uL Low 4.40 - 5.9 0 10*6/uL [facility] WBC (Bld) [#/Vol] 11.5 10*3/uL High 3.6 - 10.7 10*3/uL [facility] Hemoglobin (Bld) [Mass/Vol]o n 01-24-2025 Hematocrit (Bld) [Volume fraction] 23 % Low 40.0 - 52.0 % [facility] Interpretation and review of laboratory results Abnormal [facility] Laboratory - Chemistry and C hemistry - challengeon 01-24-2025 Lactate [Moles/Vol] 0.9 mmol/L 0.5 - 2. 2 mmol/L [facility] Laboratory - Chemistry and C hemistry - challengeOrdered By: Farhat Simons on 01-24-2025 Beta hydroxybutyrate [Mass/Vol] 10.5 mg/dL High NINF - 2.8 mg/dL [facility] Laboratory - Chemistry and C hemistry - challengeOrdered By: Anu Graham on 01-24-2025 Magnesium [Mass/Vol] 2.3 mg/dL 1.6 - 2 .6 mg/dL [facility] Laboratory - Coagulationon 0 01-24-2025 PT Coag (Bld) [Time] 15.1 s High 9.0 - 12.0 s [facility] PT Coag (Bld) [Time] 15.6 s High 9.0 - 12.0 s [facility] Laboratory - Hematology and Cell countson 01-24-2025 Hemoglobin (Bld) [Mass/Vol] 7.3 g/dL Low 13.0 - 18.0 g/dL [facility] Magnesium [Mass/Vol]Ordered By: Anu Graham on 01-24-2025 Interpretation and review of laboratory results Normal [facility] No Panel Informationon 01-24 Interpretation and review of laboratory results Abnormal [facility] Interpretation and review of laboratory results Normal [facility] Interpretation and review of laboratory results Abnormal [facility] Blood Expiration Date [id number] S [facility] Crossmatch interpretation COMP [facility] Dispense Status Released from [employer] [facility] Product Blood Type 9500 [facility] PRODUCT CODE [id number] [facility] ABO O [facility] Unit Number [id number] [facility] alth Unit RH Negative [facility] Unit Volume 300 mL [facility] No Panel InformationOrdered By: Farhat Simons on 01-24-2025 Interpretation and review of laboratory results Abnormal [facility] No Panel InformationOrdered By: Anu Graham on 01-24-2025 [facility] PT Coag (Bld) [Time]on 01-24 INR Coag (PPP) [Relative time] 1.5 {INR} High 0.9 - 1.1 [facility] INR Coag (PPP) [Relative time] 1.5 {INR} High 0.9 - 1.1 [facility] Interpretation and review of laboratory results Abnormal [facility] Phosphate [Moles/Vol]on 12-28 Phosphate [Mass/Vol] 5.1 mg/dL High 2.3 - 4 .7 mg/dL [facility] XR Chest Single viewon 01-24 [facility] RADIOLOGY SYSTEM [facility] Radiology Study observation (narrative) [facility] [facility] aPTT Coag (Bld) [Time]on aPTT Coag (PPP) [Time] 33.7 s High 20.0 - 30.5 s [facility] aPTT Coag (Bld) [Time]Ordere d By: Callie Steele on 01-24-2025 aPTT Coag (PPP) [Time] 114.7 s High 20.0 - 30.5 s [facility] Interpretation and review of laboratory results Abnormal [facility] Basic metabolic 1998 panelon 01-23-2025 Anion gap [Moles/Vol] 13 mmol/L 3 - 13 mmol/L [facility] Calcium [Mass/Vol] 9.4 mg/dL 8.4 - 10. 2 mg/dL [facility] Chloride [Moles/Vol] 102 mmol/L 98 - 10 7 mmol/L [facility] CO2 [Moles/Vol] 25 mmol/L 22 - 29 mmol/L [facility] Creatinine [Mass/Vol] 2.34 mg/dL High 0.72 - 1.25 mg/dL [facility] GFR/1.73 sq M.predicted (S/P/Bld) [Vol rate/Area] 31.3 mL/min Low - PINF [facility] Glucose [Mass/Vol] 80 mg/dL 74 - 100 mg/dL [facility] Interpretation and review of laboratory results Abnormal [facility] Potassium [Moles/Vol] 3.4 mmol/L Low 3.5 - 5.1 mmol/L [facility] Sodium [Moles/Vol] 140 mmol/L 136 - 145 mmol/L [facility] Urea nitrogen [Mass/Vol] 22 mg/dL 9 - 23 mg/d L [facility] CBC W Auto Differential pane l (Bld)on 01-23-2025 Basophils (Bld) [#/Vol] 0.1 10*3/uL 0.0 - 0.2 10*3/uL [facility] Basophils/100 WBC (Bld) 1 % 0.0 - 2.0 % [facility] Eosinophils (Bld) [#/Vol] 0.7 10*3/uL High 0.0 - 0.5 10*3/uL [facility] Eosinophils/100 WBC (Bld) 6.8 % High 0.0 - 6.0 % [facility] Erythrocyte distribution width (RBC) [Ratio] 18.8 % High 11.5 - 15.0 % [facility] Hematocrit (Bld) [Volume fraction] 25.3 % Low 40.0 - 52.0 % [facility] [facility] Hemoglobin (Bld) [Mass/Vol] 7.9 g/dL Low 13.0 - 18.0 g/dL [facility] Immature granulocytes (Bld) [#/Vol] 0.1 10*3/uL High NINF - 0.1 10*3/uL [facility] Immature granulocytes/100 WBC (Bld) 1.1 % 0.0 - 2.0 % [facility] Interpretation and review of laboratory results Abnormal [facility] Lymphocytes (Bld) [#/Vol] 1.5 10*3/uL 1.0 - 4.3 10*3/uL [facility] Lymphocytes/100 WBC (Bld) 13.7 % Low 15.0 - 45.0 % [facility] MCH (RBC) [Entitic mass] 27.9 pg 26. 0 - 34.0 pg [facility] MCHC (RBC) [Mass/Vol] 31.2 % 30.5 - 36.0 % [facility] MCV (RBC) [Entitic vol] 89.4 fL 77.0 - 99.0 fL [facility] Monocytes (Bld) [#/Vol] 1.5 10*3/uL High 0.0 - 0.9 10*3/uL [facility] Monocytes/100 WBC (Bld) 13.7 % High 5.0 - 13.0 % [facility] Neutrophils (Bld) [#/Vol] 7 10*3/uL 1.8 - 7.5 10*3/uL [facility] Neutrophils/100 WBC (Bld) 63.7 % 38.0 - 82.0 % [facility] Nucleated RBC/100 WBC (Bld) [Ratio] 0 % [facility] Platelet mean volume (Bld) [Entitic vol] 9.4 fL 9.0 - 12.7 fL [facility] Platelets (Bld) [#/Vol] 346 10*3/uL 140 - 440 10*3/uL [facility] RBC (Bld) [#/Vol] 2.83 10*6/uL Low 4.40 - 5.9 0 10*6/uL [facility] WBC (Bld) [#/Vol] 10.9 10*3/uL High 3.6 - 10.7 10*3/uL [facility] Basophils (Bld) [#/Vol] 0.1 10*3/uL 0.0 - 0.2 10*3/uL [facility] Basophils/100 WBC (Bld) 1.1 % 0.0 - 2.0 % [facility] Eosinophils (Bld) [#/Vol] 0.9 10*3/uL High 0.0 - 0.5 10*3/uL [facility] Eosinophils/100 WBC (Bld) 8 % High 0.0 - 6.0 % [facility] Erythrocyte distribution width (RBC) [Ratio] 18.5 % High 11.5 - 15.0 % [facility] Hematocrit (Bld) [Volume fraction] 23.4 % Low 40.0 - 52.0 % [facility] Hemoglobin (Bld) [Mass/Vol] 7.3 g/dL Low 13.0 - 18.0 g/dL [facility] Immature granulocytes (Bld) [#/Vol] 0.1 10*3/uL High NINF - 0.1 10*3/uL [facility] Immature granulocytes/100 WBC (Bld) 1.1 % 0.0 - 2.0 % [facility] Interpretation and review of laboratory results Abnormal [facility] Lymphocytes (Bld) [#/Vol] 1.4 10*3/uL 1.0 - 4.3 10*3/uL [facility] Lymphocytes/100 WBC (Bld) 12.2 % Low 15.0 - 45.0 % [facility] MCH (RBC) [Entitic mass] 27.7 pg 26. 0 - 34.0 pg [facility] MCHC (RBC) [Mass/Vol] 31.2 % 30.5 - 36.0 % [facility] MCV (RBC) [Entitic vol] 88.6 fL 77.0 - 99.0 fL [facility] Monocytes (Bld) [#/Vol] 1.4 10*3/uL High 0.0 - 0.9 10*3/uL [facility] Monocytes/100 WBC (Bld) 12.9 % 5.0 - 13.0 % [facility] Neutrophils (Bld) [#/Vol] 7.2 10*3/uL 1.8 - 7.5 10*3/uL [facility] Neutrophils/100 WBC (Bld) 64.7 % 38.0 - 82.0 % [facility] Nucleated RBC/100 WBC (Bld) [Ratio] 0 % [facility] Platelet mean volume (Bld) [Entitic vol] 9.1 fL 9.0 - 12.7 fL [facility] Platelets (Bld) [#/Vol] 345 10*3/uL 140 - 440 10*3/uL [facility] RBC (Bld) [#/Vol] 2.64 10*6/uL Low 4.40 - 5.9 0 10*6/uL [facility] WBC (Bld) [#/Vol] 11.1 10*3/uL High 3.6 - 10.7 10*3/uL [facility] Hemoglobin (Bld) [Mass/Vol]o n 01-23-2025 Hematocrit (Bld) [Volume fraction] 25.1 % Low 40.0 - 52.0 % [facility] Interpretation and review of laboratory results Abnormal [facility] Laboratory - Chemistry and C hemistry - challengeon 01-23-2025 Glucose [Mass/Vol] 113 mg/dL High 70 - 100 mg/dL [facility] Glucose [Mass/Vol] 92 mg/dL 70 - 100 mg/dL [facility] Magnesium [Mass/Vol] 2.1 mg/dL 1.6 - 2 .6 mg/dL [facility] Laboratory - Coagulationon 0 01-23-2025 aPTT Coag (PPP) [Time] 30.6 s High 20.0 - 30.5 s [facility] INR Coag (PPP) [Relative time] 1.6 {INR} High 0.9 - 1.1 [facility] PT Coag (Bld) [Time] 16.1 s High 9.0 - 12.0 s [facility] PT Coag (Bld) [Time] 20 s High 9.0 - 12.0 s [facility] Laboratory - Hematology and Cell countson 01-23-2025 Hemoglobin (Bld) [Mass/Vol] 7.9 g/dL Low 13.0 - 18.0 g/dL [facility] Magnesium [Mass/Vol]on 01-23 Interpretation and review of laboratory results Normal [facility] No Panel Informationon 01-23 Interpretation and review of laboratory results Abnormal [facility] Interpretation and review of laboratory results Abnormal [facility] Interpretation and review of laboratory results Normal [facility] PT Coag (Bld) [Time]on 01-23 INR Coag (PPP) [Relative time] 2 {INR} High 0.9 - 1.1 [facility] Interpretation and review of laboratory results Abnormal [facility] Phosphate [Moles/Vol]Ordered By: Jenni Romano on 01-23-2025 Interpretation and review of laboratory results Normal [facility] Phosphate [Mass/Vol] 4.5 mg/dL 2.3 - 4 .7 mg/dL [facility] Basic metabolic 1998 panelOr dered By: Nathaly Dobson on 01-22-2025 Anion gap [Moles/Vol] 13 mmol/L 3 - 13 mmol/L [facility] Calcium [Mass/Vol] 9.8 mg/dL 8.4 - 10. 2 mg/dL [facility] Chloride [Moles/Vol] 94 mmol/L Low 98 - 10 7 mmol/L [facility] CO2 [Moles/Vol] 25 mmol/L 22 - 29 mmol/L [facility] Creatinine [Mass/Vol] 4.18 mg/dL High 0.72 - 1.25 mg/dL [facility] GFR/1.73 sq M.predicted (S/P/Bld) [Vol rate/Area] 15.6 mL/min Low - PINF [facility] Glucose [Mass/Vol] 70 mg/dL Low 74 - 100 mg/dL [facility] Interpretation and review of laboratory results Abnormal [facility] Potassium [Moles/Vol] 4.4 mmol/L 3.5 - 5.1 mmol/L [facility] Sodium [Moles/Vol] 132 mmol/L Low 136 - 145 mmol/L [facility] Urea nitrogen [Mass/Vol] 53 mg/dL High 9 - 23 mg/d L [facility] CBC W Auto Differential pane l (Bld)Ordered By: Tiffanie Chand on 01-22-2025 Basophils (Bld) [#/Vol] 0.1 10*3/uL 0.0 - 0.2 10*3/uL [facility] Basophils/100 WBC (Bld) 0.8 % 0.0 - 2.0 % [facility] Eosinophils (Bld) [#/Vol] 0.7 10*3/uL High 0.0 - 0.5 10*3/uL [facility] Eosinophils/100 WBC (Bld) 6.1 % High 0.0 - 6.0 % [facility] Erythrocyte distribution width (RBC) [Ratio] 18.4 % High 11.5 - 15.0 % [facility] Hematocrit (Bld) [Volume fraction] 23.9 % Low 40.0 - 52.0 % [facility] Hemoglobin (Bld) [Mass/Vol] 7.4 g/dL Low 13.0 - 18.0 g/dL [facility] Immature granulocytes (Bld) [#/Vol] 0.1 10*3/uL High NINF - 0.1 10*3/uL [facility] Immature granulocytes/100 WBC (Bld) 1.1 % 0.0 - 2.0 % [facility] Interpretation and review of laboratory results Abnormal [facility] Lymphocytes (Bld) [#/Vol] 1 10*3/uL 1.0 - 4.3 10*3/uL [facility] Lymphocytes/100 WBC (Bld) 9.7 % Low 15.0 - 45.0 % [facility] MCH (RBC) [Entitic mass] 27.5 pg 26. 0 - 34.0 pg [facility] MCHC (RBC) [Mass/Vol] 31 % 30.5 - 36.0 % [facility] MCV (RBC) [Entitic vol] 88.8 fL 77.0 - 99.0 fL [facility] Monocytes (Bld) [#/Vol] 1.5 10*3/uL High 0.0 - 0.9 10*3/uL [facility] Monocytes/100 WBC (Bld) 14.5 % High 5.0 - 13.0 % [facility] Neutrophils (Bld) [#/Vol] 7.2 10*3/uL 1.8 - 7.5 10*3/uL [facility] Neutrophils/100 WBC (Bld) 67.8 % 38.0 - 82.0 % [facility] Nucleated RBC/100 WBC (Bld) [Ratio] 0 % [facility] Platelet mean volume (Bld) [Entitic vol] 8.2 fL Low 9.0 - 12.7 fL [facility] Platelets (Bld) [#/Vol] 292 10*3/uL 140 - 440 10*3/uL [facility] RBC (Bld) [#/Vol] 2.69 10*6/uL Low 4.40 - 5.9 0 10*6/uL [facility] WBC (Bld) [#/Vol] 10.6 10*3/uL 3.6 - 10.7 10*3/uL [facility] CBC W Auto Differential pane l (Bld)on 01-22-2025 Basophils (Bld) [#/Vol] 0.1 10*3/uL 0.0 - 0.2 10*3/uL [facility] Basophils/100 WBC (Bld) 1.1 % 0.0 - 2.0 % [facility] Eosinophils (Bld) [#/Vol] 0.8 10*3/uL High 0.0 - 0.5 10*3/uL [facility] Eosinophils/100 WBC (Bld) 7.9 % High 0.0 - 6.0 % [facility] [employer] Erythrocyte distribution width (RBC) [Ratio] 18.6 % High 11.5 - 15.0 % [facility] Hematocrit (Bld) [Volume fraction] 25.1 % Low 40.0 - 52.0 % [facility] Hemoglobin (Bld) [Mass/Vol] 8 g/dL Low 13.0 - 18.0 g/dL [facility] [employer] Immature granulocytes (Bld) [#/Vol] 0.1 10*3/uL High NINF - 0.1 10*3/uL [facility] [employer] Immature granulocytes/100 WBC (Bld) 0.8 % 0.0 - 2.0 % [facility] Interpretation and review of laboratory results Abnormal [facility] Lymphocytes (Bld) [#/Vol] 1.5 10*3/uL 1.0 - 4.3 10*3/uL [facility] [employer] Lymphocytes/100 WBC (Bld) 14.1 % Low 15.0 - 45.0 % [facility] MCH (RBC) [Entitic mass] 27.7 pg 26. 0 - 34.0 pg [facility] MCHC (RBC) [Mass/Vol] 31.9 % 30.5 - 36.0 % [facility] MCV (RBC) [Entitic vol] 86.9 fL 77.0 - 99.0 fL [facility] [employer] Monocytes (Bld) [#/Vol] 1.5 10*3/uL High 0.0 - 0.9 10*3/uL [facility] Monocytes/100 WBC (Bld) 14 % High 5.0 - 13.0 % [facility] Neutrophils (Bld) [#/Vol] 6.6 10*3/uL 1.8 - 7.5 10*3/uL [facility] Neutrophils/100 WBC (Bld) 62.1 % 38.0 - 82.0 % [facility] Nucleated RBC/100 WBC (Bld) [Ratio] 0 % [facility] Platelet mean volume (Bld) [Entitic vol] 8.8 fL Low 9.0 - 12.7 fL [facility] Platelets (Bld) [#/Vol] 330 10*3/uL 140 - 440 10*3/uL [facility] RBC (Bld) [#/Vol] 2.89 10*6/uL Low 4.40 - 5.9 0 10*6/uL [facility] WBC (Bld) [#/Vol] 10.6 10*3/uL 3.6 - 10.7 10*3/uL [facility] Coagulation index TEG Qn (Bl d)Ordered [...] 36 mm High 7 - 24 mm [facility] Clotting time.extrinsic coagulation system activated.fibrinolysis suppressed Rotational TEG (Bld) 232 s High 43 - 82 s [facility] Interpretation and review of laboratory results Abnormal [facility] Maximum clot firmness.extrinsic coagulation system activated.fibrinolysis suppressed Rotational TEG (Bld) [Length] 75 mm High 52 - 70 mm [facility] Hemoglobin (Bld) [Mass/Vol]o n 01-22-2025 Hematocrit (Bld) [Volume fraction] 24.5 % Low 40.0 - 52.0 % [facility] Interpretation and review of laboratory results Abnormal [facility] Hepatic function 2000 panelo n 01-22-2025 Albumin [Mass/Vol] 2.2 g/dL Low 3.5 - 5.0 g/dL [facility] ALP [Catalytic activity/Vol] 274 U/L High 40 - 150 U/L [facility] ALT [Catalytic activity/Vol] 44 U/L High NINF - 40 U/L [facility] AST [Catalytic activity/Vol] 51 U/L High NINF - 34 U/L [facility] Bilirubin [Mass/Vol] 0.9 mg/dL NINF - 1.2 mg/dL [facility] Bilirubin.conjugated [Mass/Vol] 0.7 mg/dL High NINF - 0.5 mg/dL [facility] Protein [Mass/Vol] 7.6 g/dL 6.4 - 8.3 g/dL [facility] Laboratory - Chemistry and C hemistry - challengeon 01-22-2025 Glucose [Mass/Vol] 101 mg/dL High 70 - 100 mg/dL [facility] Glucose [Mass/Vol] 77 mg/dL 70 - 100 mg/dL [facility] Glucose [Mass/Vol] 81 mg/dL 70 - 100 mg/dL [facility] Magnesium [Mass/Vol] 2.6 mg/dL 1.6 - 2 .6 mg/dL [facility] Glucose [Mass/Vol] 82 mg/dL 70 - 100 mg/dL [facility] Laboratory - Coagulationon 0 01-22-2025 aPTT Coag (PPP) [Time] 42.7 s High 20.0 - 30.5 s [facility] INR Coag (PPP) [Relative time] 3.1 {INR} High 0.9 - 1.1 [facility] PT Coag (Bld) [Time] 31 s High 9.0 - 12.0 s [facility] Fibrin D-dimer FEU (PPP) [Mass/Vol] 14.21 mg/L High NINF - 0.50 mg/L [facility] Fibrinogen Coag (PPP) [Mass/Vol] 436 mg/dL High 200 - 400 mg/dL [facility] Laboratory - CoagulationOrde red By: Maggy Lancaster on 01-22-2025 aPTT Coag (PPP) [Time] 48.1 s High 20.0 - 30.5 s [facility] INR Coag (PPP) [Relative time] 5.5 {INR} Critically high 0.9 - 1.1 [facility] PT Coag (Bld) [Time] 52.6 s High 9.0 - 12.0 s [facility] Laboratory - CoagulationOrde red By: Michelle Olmstead on 01-22-2025 PT Coag (Bld) [Time] 75.4 s High 9.0 - 12.0 s [facility] Laboratory - Hematology and Cell countson 01-22-2025 Hemoglobin (Bld) [Mass/Vol] 7.7 g/dL Low 13.0 - 18.0 g/dL [facility] Magnesium [Mass/Vol]on 01-22 Interpretation and review of laboratory results Normal [facility] No Panel Informationon 01-22 Interpretation and review of laboratory results Abnormal [facility] Interpretation and review of laboratory results Abnormal [facility] Blood Expiration Date [id number] S [facility] Status Transfused [facility] Product Blood Type 6200 [facility] PRODUCT CODE [id number] [facility] Unit ABO A [facility] Unit Number [id number] [facility] alth Unit RH Positive [facility] Unit Volume 209 ml [facility] Interpretation and review of laboratory results Normal [facility] Interpretation and review of laboratory results Normal [facility] Interpretation and review of laboratory results Abnormal [facility] Interpretation and review of laboratory results Abnormal [facility] Interpretation and review of laboratory results Normal [facility] No Panel InformationOrdered By: Maggy Lancaster on 01-22-2025 Interpretation and review of laboratory results Abnormal [facility] PT Coag (Bld) [Time]Ordered By: Michelle Olmstead on 01-22-2025 INR Coag (PPP) [Relative time] 8.1 {INR} Critically high 0.9 - 1.1 [facility] Interpretation and review of laboratory results Abnormal [facility] Phosphate [Moles/Vol]on 12-27 Phosphate [Mass/Vol] 6.8 mg/dL High 2.3 - 4 .7 mg/dL [facility] aPTT Coag (Bld) [Time]on aPTT Coag (PPP) [Time] 46 s High 20.0 - 30.5 s [facility] Basic metabolic 1998 panelOr dered By: Jarred José on 01-21-2025 Anion gap [Moles/Vol] 15 mmol/L High 3 - 13 mmol/L [facility] Calcium [Mass/Vol] 9.9 mg/dL 8.4 - 10. 2 mg/dL [facility] Chloride [Moles/Vol] 96 mmol/L Low 98 - 10 7 mmol/L [facility] CO2 [Moles/Vol] 24 mmol/L 22 - 29 mmol/L [facility] Creatinine [Mass/Vol] 2.99 mg/dL High 0.72 - 1.25 mg/dL [facility] GFR/1.73 sq M.predicted (S/P/Bld) [Vol rate/Area] 23.3 mL/min Low - PINF [facility] Glucose [Mass/Vol] 60 mg/dL Low 74 - 100 mg/dL [facility] Interpretation and review of laboratory results Abnormal [facility] Potassium [Moles/Vol] 4.3 mmol/L 3.5 - 5.1 mmol/L [facility] Sodium [Moles/Vol] 135 mmol/L Low 136 - 145 mmol/L [facility] Urea nitrogen [Mass/Vol] 46 mg/dL High 9 - 23 mg/d L [facility] CBC W Auto Differential pane l (Bld)on 01-21-2025 Basophils (Bld) [#/Vol] 0.1 10*3/uL 0.0 - 0.2 10*3/uL [facility] Basophils/100 WBC (Bld) 1 % 0.0 - 2.0 % [facility] Eosinophils (Bld) [#/Vol] 0.4 10*3/uL 0.0 - 0.5 10*3/uL [facility] Eosinophils/100 WBC (Bld) 3.8 % 0.0 - 6.0 % [facility] [employer] Erythrocyte distribution width (RBC) [Ratio] 18.6 % High 11.5 - 15.0 % [facility] Hematocrit (Bld) [Volume fraction] 27.3 % Low 40.0 - 52.0 % [facility] Hemoglobin (Bld) [Mass/Vol] 8.3 g/dL Low 13.0 - 18.0 g/dL [facility] Immature granulocytes (Bld) [#/Vol] 0.1 10*3/uL High NINF - 0.1 10*3/uL [facility] Immature granulocytes/100 WBC (Bld) 1.2 % 0.0 - 2.0 % [facility] Interpretation and review of laboratory results Abnormal [facility] Lymphocytes (Bld) [#/Vol] 1.7 10*3/uL 1.0 - 4.3 10*3/uL [facility] Lymphocytes/100 WBC (Bld) 16.5 % 15.0 - 45.0 % [facility] MCH (RBC) [Entitic mass] 27 pg 26. 0 - 34.0 pg [facility] MCHC (RBC) [Mass/Vol] 30.4 % Low 30.5 - 36.0 % [facility] MCV (RBC) [Entitic vol] 88.9 fL 77.0 - 99.0 fL [facility] Monocytes (Bld) [#/Vol] 1.4 10*3/uL High 0.0 - 0.9 10*3/uL [facility] Monocytes/100 WBC (Bld) 14.3 % High 5.0 - 13.0 % [facility] Neutrophils (Bld) [#/Vol] 6.4 10*3/uL 1.8 - 7.5 10*3/uL [facility] Neutrophils/100 WBC (Bld) 63.2 % 38.0 - 82.0 % [facility] Nucleated RBC/100 WBC (Bld) [Ratio] 0 % [facility] [employer] Platelet mean volume (Bld) [Entitic vol] 8.7 fL Low 9.0 - 12.7 fL [facility] Platelets (Bld) [#/Vol] 365 10*3/uL 140 - 440 10*3/uL [facility] RBC (Bld) [#/Vol] 3.07 10*6/uL Low 4.40 - 5.9 0 10*6/uL [facility] WBC (Bld) [#/Vol] 10.1 10*3/uL 3.6 - 10.7 10*3/uL [facility] CBC panel Auto (Bld)Ordered By: Piedad Alvarado on 01-21-2025 Erythrocyte distribution width (RBC) [Ratio] 18.6 % High 11.5 - 15.0 % [facility] Hematocrit (Bld) [Volume fraction] 25.3 % Low 40.0 - 52.0 % [facility] Hemoglobin (Bld) [Mass/Vol] 8 g/dL Low 13.0 - 18.0 g/dL [facility] Interpretation and review of laboratory results Abnormal [facility] MCH (RBC) [Entitic mass] 27.7 pg 26. 0 - 34.0 pg [facility] MCHC (RBC) [Mass/Vol] 31.6 % 30.5 - 36.0 % [facility] MCV (RBC) [Entitic vol] 87.5 fL 77.0 - 99.0 fL [facility] Platelet mean volume (Bld) [Entitic vol] 9.1 fL 9.0 - 12.7 fL [facility] Platelets (Bld) [#/Vol] 353 10*3/uL 140 - 440 10*3/uL [facility] RBC (Bld) [#/Vol] 2.89 10*6/uL Low 4.40 - 5.9 0 10*6/uL [facility] WBC (Bld) [#/Vol] 9.2 10*3/uL 3.6 - 10.7 10*3/uL [facility] Hemoglobin (Bld) [Mass/Vol]o n 01-21-2025 Hematocrit (Bld) [Volume fraction] 22.4 % Low 40.0 - 52.0 % [facility] Interpretation and review of laboratory results Abnormal [facility] Laboratory - Chemistry and C hemistry - challengeon 01-21-2025 Glucose [Mass/Vol] 86 mg/dL 70 - 100 mg/dL [facility] Glucose [Mass/Vol] 92 mg/dL 70 - 100 mg/dL [facility] Glucose [Mass/Vol] 92 mg/dL 70 - 100 mg/dL [facility] Glucose [Mass/Vol] 107 mg/dL High 70 - 100 mg/dL [facility] Glucose [Mass/Vol] 129 mg/dL High 70 - 100 mg/dL [facility] Glucose [Mass/Vol] 67 mg/dL Low 70 - 100 mg/dL [facility] Magnesium [Mass/Vol] 2.5 mg/dL 1.6 - 2 .6 mg/dL [facility] Glucose [Mass/Vol] 74 mg/dL 70 - 100 mg/dL [facility] Laboratory - CoagulationOrde red By: Treva Mcfarland on 01-21-2025 PT Coag (Bld) [Time] 73.5 s High 9.0 - 12.0 s [facility] Laboratory - Hematology and Cell countson 01-21-2025 Hemoglobin (Bld) [Mass/Vol] 7.1 g/dL Low 13.0 - 18.0 g/dL [facility] Magnesium [Mass/Vol]on 01-21 Interpretation and review of laboratory results Normal [facility] No Panel Informationon 01-21 Interpretation and review of laboratory results Normal [facility] Interpretation and review of laboratory results Normal [facility] Interpretation and review of laboratory results Normal [facility] Interpretation and review of laboratory results Abnormal [facility] Interpretation and review of laboratory results Abnormal [facility] Interpretation and review of laboratory results Abnormal [facility] Interpretation and review of laboratory results Normal [facility] PT Coag (Bld) [Time]Ordered By: Treva Mcfarland on 01-21-2025 INR Coag (PPP) [Relative time] 7.9 {INR} Critically high 0.9 - 1.1 [facility] Interpretation and review of laboratory results Abnormal [facility] Phosphate [Moles/Vol]on 12-27 Interpretation and review of laboratory results Abnormal [facility] Phosphate [Mass/Vol] 5.3 mg/dL High 2.3 - 4 .7 mg/dL [facility] Basic metabolic 1998 panelon 01-20-2025 Anion gap [Moles/Vol] 15 mmol/L High 3 - 13 mmol/L [facility] Calcium [Mass/Vol] 9.2 mg/dL 8.4 - 10. 2 mg/dL [facility] Chloride [Moles/Vol] 98 mmol/L 98 - 10 7 mmol/L [facility] CO2 [Moles/Vol] 22 mmol/L 22 - 29 mmol/L [facility] Creatinine [Mass/Vol] 4.31 mg/dL High 0.72 - 1.25 mg/dL [facility] GFR/1.73 sq M.predicted (S/P/Bld) [Vol rate/Area] 15 mL/min Low - PINF [facility] [facility] Glucose [Mass/Vol] 68 mg/dL Low 74 - 100 mg/dL [facility] Interpretation and review of laboratory results Abnormal [facility] Potassium [Moles/Vol] 4.8 mmol/L 3.5 - 5.1 mmol/L [facility] Sodium [Moles/Vol] 135 mmol/L Low 136 - 145 mmol/L [facility] Urea nitrogen [Mass/Vol] 91 mg/dL High 9 - 23 mg/d L [facility] Blood type and Crossmatch pa freida (Bld)on 01-20-2025 ABO group Nom (Bld) O [facility] Blood group antibody screen GEL Ql Negative [facility] D Ag Ql (RBC) Negative [facility] CBC W Auto Differential pane l (Bld)Ordered By: Haley Vitale on 01-20-2025 Basophils (Bld) [#/Vol] 0.1 10*3/uL 0.0 - 0.2 10*3/uL [facility] Basophils/100 WBC (Bld) 1.1 % 0.0 - 2.0 % [facility] Eosinophils (Bld) [#/Vol] 0.5 10*3/uL 0.0 - 0.5 10*3/uL [facility] Eosinophils/100 WBC (Bld) 4.5 % 0.0 - 6.0 % [facility] Erythrocyte distribution width (RBC) [Ratio] 18.3 % High 11.5 - 15.0 % [facility] Hematocrit (Bld) [Volume fraction] 21.3 % Low 40.0 - 52.0 % [facility] Hemoglobin (Bld) [Mass/Vol] 6.6 g/dL Critically low 13.0 - 18.0 g/dL [facility] Immature granulocytes (Bld) [#/Vol] 0.1 10*3/uL High NINF - 0.1 10*3/uL [facility] Immature granulocytes/100 WBC (Bld) 1 % 0.0 - 2.0 % [facility] Interpretation and review of laboratory results Abnormal [facility] Lymphocytes (Bld) [#/Vol] 1.2 10*3/uL 1.0 - 4.3 10*3/uL [facility] Lymphocytes/100 WBC (Bld) 11.6 % Low 15.0 - 45.0 % [facility] MCH (RBC) [Entitic mass] 27.4 pg 26. 0 - 34.0 pg [facility] MCHC (RBC) [Mass/Vol] 31 % 30.5 - 36.0 % [facility] MCV (RBC) [Entitic vol] 88.4 fL 77.0 - 99.0 fL [facility] Monocytes (Bld) [#/Vol] 1.1 10*3/uL High 0.0 - 0.9 10*3/uL [facility] Monocytes/100 WBC (Bld) 10.1 % 5.0 - 13.0 % [facility] Neutrophils (Bld) [#/Vol] 7.5 10*3/uL 1.8 - 7.5 10*3/uL [facility] Neutrophils/100 WBC (Bld) 71.7 % 38.0 - 82.0 % [facility] Nucleated RBC/100 WBC (Bld) [Ratio] 0 % [facility] Platelet mean volume (Bld) [Entitic vol] 9 fL 9.0 - 12.7 fL [facility] Platelets (Bld) [#/Vol] 279 10*3/uL 140 - 440 10*3/uL [facility] RBC (Bld) [#/Vol] 2.41 10*6/uL Low 4.40 - 5.9 0 10*6/uL [facility] WBC (Bld) [#/Vol] 10.5 10*3/uL 3.6 - 10.7 10*3/uL [facility] CT Abdomen and Pelvis W cont rast Dimitrios 01-20-2025 [facility] Radiology Study observation (narrative) [facility] CT Abdomen and Pelvis W cont rast IVOrdered By: Karly Parker on 01-20-2025 [facility] Work Phone: Hemoglobin (Bld) [Mass/Vol]o n 01-20-2025 Hematocrit (Bld) [Volume fraction] 25.8 % Low 40.0 - 52.0 % [facility] Interpretation and review of laboratory results Abnormal [facility] Hematocrit (Bld) [Volume fraction] 25.7 % Low 40.0 - 52.0 % [facility] Interpretation and review of laboratory results Abnormal [facility] Hematocrit (Bld) [Volume fraction] 25.8 % Low 40.0 - 52.0 % [facility] Interpretation and review of laboratory results Abnormal [facility] Laboratory - Chemistry and C hemistry - challengeon 01-20-2025 Magnesium [Mass/Vol] 2.8 mg/dL High 1.6 - 2 .6 mg/dL [facility] Laboratory - Hematology and Cell countson 01-20-2025 Hemoglobin (Bld) [Mass/Vol] 8.3 g/dL Low 13.0 - 18.0 g/dL [facility] Hemoglobin (Bld) [Mass/Vol] 8.2 g/dL Low 13.0 - 18.0 g/dL [facility] Hemoglobin (Bld) [Mass/Vol] 8.2 g/dL Low 13.0 - 18.0 g/dL [facility] Magnesium [Mass/Vol]on 01-20 [facility] No Panel Informationon 01-20 Interpretation and review of laboratory results Abnormal [facility] Phosphate [Moles/Vol]on 12-27 Phosphate [Mass/Vol] 6.1 mg/dL High 2.3 - 4 .7 mg/dL [facility] No Panel Informationon 01-19 [address] [place] 69 degrees [facility] VT Interval 148 ms [facility] QRS [place] 93 degrees [facility] QRSD Interval [address] [facility]val 413 ms [facility] QTC Interval 515 ms [facility] T Wave [place] 87 degrees [facility] CV EPIPHANY [facility] 4h Troponin HS (Serial 3rd Troponin) 94 ng/L High NINF - 35 ng/L [facility] Interpretation and review of laboratory results Abnormal [facility] 2h Troponin HS (Serial 2nd Troponin) 106 ng/L High NINF - 35 ng/L [facility] Interpretation and review of laboratory results Abnormal [facility] Vital signson 01-19-2025 Heart rate 93 /min bpm [facility] Airwayon 10-12-2024 Rudolph German CRNA 10/12/2024 7:56 AM Airway Date/Time: 10/12/2024 7:38 AM Urgency: scheduled Airway not difficult General Information and Staff Patient location during procedure: Procedural Anesthesiologist: Vincent Wilson MD Resident/FOAM CHARGER: Rudolph German CRNA Performed: anesthesiologist Indications and [...] 21 Number of attempts at approach: 1 [facility] Arterial Lineon 10-12-2024 Rudolph German CRNA 10/12/2024 [...] procedure well with no complications. Staffing Performed: FOAM CHARGER Resident/FOAM CHARGER: Rudolph German CRNA [facility] Central Venous Lineon 2024 Rudolph [...] during the procedure: no complications. Staffing Performed: FOAM CHARGER Resident/FOAM CHARGER: Rudolph German, DECLAN [facility] No Panel Informationon 10-12 [facility] CT Head WO contraston 2024 No acute intracranial hemorrhage or large territorial infarct. Nonspecific small air locules within the scalp adjacent to the right temporal bone and within the right football coach space. Pneumatized secretions within the maxillary sinuses may correspond with acute sinusitis in the appropriate clinical setting. Report Dictated on Electronically Signed By: Yvonne Abraham DO Electronically Signed Date/Time: 10/03/2024 2:14 PM [facility] Patient Name: JUN SNYDER : [...] right temporal bone and within the right football coach space. [facility] Yvonne Abraham DO - 10/03/2024 [facility]UN [facility] 1965 [id number] Exam Date/Time: 10/03/2024 11:26 Procedure: CT HEAD [...] right temporal bone and within the right football coach space. IMPRESSION: No acute intracranial hemorrhage or large territorial infarct. Nonspecific small air locules within the scalp adjacent to the right temporal bone and within the right football coach space. Pneumatized secretions within the maxillary sinuses may correspond with acute sinusitis in the appropriate clinical setting. Report Dictated on Electronically Signed By: Yvonne Abraham DO Electronically Signed Date/Time: 10/03/2024 2:14 PM [facility] Radiology Study observation (narrative) [facility] Head WO contrastOrdered B y: Yvonne Abraham on 10-03-2024 [employer] Phone: XR Chest Single viewon 10-03 No focal consolidation or pulmonary edema. Report Dictated on Electronically Signed By: Bob Ken MD Electronically Signed Date/Time: 10/03/2024 12:22 PM EST [facility] Patient Name: JUN SNYDER : [...] change of the thoracic spine is noted. [facility] Bob Ken MD - 10/03/2024 [...] Electronically Signed Date/Time: 10/03/2024 12:22 PM EST [employer] Radiology Study observation (narrative) [employer] XR Chest Single viewOrdered By: Bob Ken on 10-03-2024 [employer] Phone: ECG 12 leadon 08-28-2024 Sinus Rhythm -Incomplete right bundle branch block. -Left atrial enlargement. Voltage criteria for LVH (S(V1)+R(V6) exceeds 3.50 mV). -ST depression -Seen with left ventricular hypertrophy (strain) -consider ischemia. [facility] Patricia 04-12-2024 [facility] Telephone (TXCTGL) JUN SNYDER ([id number]) 1965 M Date Time Provider Department 04/12/24 [...] Date Reviewed: 12/25/2021 Reviewed by: Michelle Streeter, MA - Fully Assessed Prescriptions as of [...] Status:Closed by LANIE LUIS on 04/12/24 [facility]on 11-12-2023 Sinus Rhythm -Left atrial enlargement. IRBBB LVH with repolarization ABNORMAL [facility] ECG 12 leadOrdered By: Michaela Coombs on 11-12-2023 [facility] [employer] Work Phone: Basic metabolic 1998 panelon 08-17-2023 Anion gap [Moles/Vol] 15 mmol/L High 3 - 13 mmol/L [facility] Calcium [Mass/Vol] 8.7 mg/dL 8.4 - 10. 4 mg/dL [facility] Chloride [Moles/Vol] 94 mmol/L Low 98 - 10 7 mmol/L [facility] CO2 [Moles/Vol] 26 mmol/L 22 - 30 mmol/L [facility] Creatinine [Mass/Vol] 6.78 mg/dL High 0.66 - 1.25 mg/dL [facility] GFR/1.73 sq M.predicted MDRD (S/P/Bld) [Vol rate/Area] 8.8 mL/min/{1.73_m2} Low - PINF [facility] Comment on above: Calculation based on the Chronic Kidney Disease Epidemiology Collaboration (CKD-EPI) equation refit without adjustment for race Glucose [Mass/Vol] 102 mg/dL High 70 - 100 mg/dL [facility] Interpretation and review of laboratory results Abnormal [facility] Potassium [Moles/Vol] 5.0 mmol/L 3.5 - 5.1 mmol/L [facility] Sodium [Moles/Vol] 134 mmol/L Low 135 - 145 mmol/L [facility] Urea nitrogen [Mass/Vol] 46 mg/dL High 9 - 20 mg/d L [facility] Laboratory - Chemistry and C hemistry - challengeon 08-17-2023 Magnesium [Mass/Vol] 2.1 mg/dL 1.6 - 2 .3 mg/dL [facility] TSH Qn 0.981 m[IU]/L [facility] TSH Qn 1.190 m[IU]/L [facility] Troponin I.cardiac [Mass/Vol] 0.094 ng/mL High NINF - 0.034 ng/mL [facility] Magnesium [Mass/Vol]on 08-17 Interpretation and review of laboratory results Normal [facility] No Panel InformationOrdered By: Ruy Milton on 08-17-2023 [address] [place] degrees [facility] [employer] Work Phone: VT Interval ms [facility] [employer] Work Phone: QRS [place] 61 degrees [facility] [employer] Work Phone: QRSD Interval 114 ms [facility] [employer] Work Phone: QT Interval 364 ms [facility] [employer] Work Phone: QTC Interval 491 ms [facility] [employer] Work Phone: T Wave [place] -20 degrees [facility] [employer] Work Phone: [facility] [employer] Work Phone: No Panel Informationon 08-17 ATRIAL [...] On 08-17-2023 6:57:31 EST by Ruy Milton [facility] TSH Qnon 08-17-2023 Interpretation and review of laboratory results Normal [facility] Interpretation and review of laboratory results Normal [facility] Troponin I.cardiac [Mass/Vol ]on 08-17-2023 Interpretation and review of laboratory results Abnormal [facility] Patients with high levels of Biotin oral intake (ie >5 mg/day) may have falsely decreased Troponin levels. [facility] US Heart TransthoracicOrdere d By: Jr Shah on 08-17-2023 Ao Root Index 1.58 cm/m2 [facility] h Work Phone: Aortic Root 3.3 cm [facility] Work Phone: Ascending Aorta 3.3 cm [facility] Work Phone: Ascending Aorta Index 1.58 cm/m2 [facility] Work Phone: AV Area by Peak Velocity 1.1 cm2 [facility] Work Phone: AV Area by VTI 1.1 cm2 [facility] Work Phone: AV AT 97.05 ms [facility] Work Phone: [phone] AV Mean Gradient 34 mmHg [facility] Work Phone: [phone] AV Mean Velocity 2.7 m/s [facility] Work Phone: AV Peak Gradient 59 mmHg [facility] Work Phone: [phone] AV Peak Velocity 3.8 m/s [facility] Work Phone: [phone] AV Velocity Ratio 0.26 [facility] Work Phone: [phone] AV VTI 84.0 cm [facility] Work Phone: [phone] MALU/BSA Peak Velocity 0.5 cm2/m2 [facility] Work Phone: [phone] MALU/BSA VTI 0.5 cm2/m2 [facility] Work Phone: [phone] E/E' Lateral 11.44 [facility] Work Phone: 1() E/E' Ratio (Averaged) 13.08 [facility] Work Phone: [phone] E/E' Septal 14.71 [facility] Work Phone: [phone] EF BP 62 % 55 - 100 % [facility] Work Phone: [phone] Est. RA Pressure 0 mmHg [facility] Work Phone: [phone] Fractional Shortening 2D 30 % 28 - 44 % [facility] Work Phone: [phone] Interpretation and review of laboratory results Abnormal [facility] Work Phone: [phone] IVC Diameter 1.1 cm [facility] Work Phone: [phone] IVSd 1.1 cm Abnormal 0.6 - 1.0 cm [facility] Work Phone: [phone] LA Diameter 4.0 cm [facility] Work Phone: [phone] LA Size Index 1.91 cm/m2 [facility] Work Phone: [phone] LA Volume 2C 66 mL Abnormal 18 - 58 mL [facility] Work Phone: LA Volume 4C 71 mL Abnormal 18 - 58 mL [facility] Work Phone: [phone] LA Volume A/L 75 mL [facility] Work Phone: LA Volume BP 69 mL Abnormal 18 - 58 mL [facility] Work Phone: LA Volume Index 2C 32 mL/m2 16 - 34 mL/m2 [facility] Work Phone: LA Volume Index 4C 34 mL/m2 16 - 34 mL/m2 [facility] Work Phone: LA Volume Index A/L 36 mL/m2 16 - 34 mL/m2 [facility] Work Phone: LA Volume Index BP 33 ml/m2 16 - 34 ml/m2 [facility] Work Phone: LA/AO Root Ratio 1.21 [facility] Work Phone: LV E' Lateral Velocity 9 cm/s [facility] Work Phone: LV E' Septal Velocity 7 cm/s [facility] Work Phone: LV EDV A2C 104 mL [facility] Work Phone: LV EDV A4C 89 mL [facility] Work Phone: LV EDV BP 97 mL 67 - 155 mL [facility] Work Phone: LV EDV Index A2C 50 mL/m2 [facility] Work Phone: LV EDV Index A4C 43 mL/m2 [facility] Work Phone: LV EDV Index BP 46 mL/m2 [facility] [facility] Work Phone: LV Ejection Fraction A2C 61 % [facility] Work Phone: LV Ejection Fraction A4C 64 % [facility] Work Phone: LV ESV A2C 41 mL [facility] Work Phone: LV ESV A4C 32 mL [facility] Work Phone: LV ESV BP 37 mL 22 - 58 mL [facility] Work Phone: LV ESV Index A2C 20 mL/m2 [facility] Work Phone: LV ESV Index A4C 15 mL/m2 [facility] Work Phone: LV ESV Index BP 18 mL/m2 [facility] Work Phone: LV Mass 2D 173.6 g 88 - 224 g [facility] Work Phone: LV Mass 2D Index 83.1 g/m2 49 - 115 g/m2 [facility] Work Phone: LV RWT Ratio 0.56 [facility] Work Phone: LVIDd 4.3 cm 4.2 - 5.9 cm [facility] Work Phone: LVIDd Index 2.06 cm/m2 [facility] [employer] Work Phone: LVIDs 3.0 cm [facility] [employer] Work Phone: LVIDs Index 1.44 cm/m2 [facility] [employer] Work Phone: LVOT Area 4.2 cm2 [facility] [employer] Work Phone: LVOT Cardiac Output 7.6 liter/minute [facility] [employer] Work Phone: LVOT Diameter 2.3 cm [facility] [employer] Work Phone: LVOT Mean Gradient 2 mmHg [facility] [employer] Work Phone: LVOT Peak Gradient 4 mmHg [facility] [employer] Work Phone: [phone] LVOT Peak Velocity 1.0 m/s [facility] [employer] Work Phone: LVOT Stroke Volume Index 46.5 mL/m2 [facility] [employer] Work Phone: LVOT SV 97.2 ml [facility] Work Phone: LVOT VTI 23.4 cm [facility] Work Phone: LVOT:AV VTI Index 0.28 [facility] ealth Work Phone: LVPWd 1.2 cm Abnormal 0.6 - 1.0 cm [facility] Work Phone: [phone] MV A Velocity 0.79 m/s [facility] Work Phone: MV Area by PHT 1.9 cm2 [facility] Work Phone: [phone] MV E Velocity 1.03 m/s [facility] Work Phone: MV E Wave Deceleration Time 278.6 ms [facility] Work Phone: MV E/A 1.30 [facility] Work Phone: MV Mean Gradient 3 mmHg [facility] Work Phone: MV Peak Gradient 6 mmHg [facility] Work Phone: MV PHT 113.0 ms [facility] Work Phone: RA Area 4C 79.9 mL [facility] Work Phone: RA Area 4C 77.7 mL [facility] Work Phone: RV Basal Dimension 4.6 cm [facility] Work Phone: [phone] RV Mid Dimension 3.3 cm [facility] Work Phone: RVSP 30 mmHg [facility] Work Phone: Sinotubular Junction 3.0 cm [facility] Work Phone: TR Max Velocity 2.72 m/s [employer] Work Phone: TR Peak Gradient 30 mmHg [facility] Work Phone: [phone] [facility] [...] on 08-17-2023 Heart rate 109 /min bpm [employer] Work Phone: Basic metabolic 1998 panelon 08-16-2023 Anion gap [Moles/Vol] 15 mmol/L High 3 - 13 mmol/L [employer] Calcium [Mass/Vol] 9.1 mg/dL 8.4 - 10. 4 mg/dL [employer] Chloride [Moles/Vol] 93 mmol/L Low 98 - 10 7 mmol/L [employer] CO2 [Moles/Vol] 25 mmol/L 22 - 30 mmol/L [facility] [employer] Creatinine [Mass/Vol] 6.01 mg/dL High 0.66 - 1.25 mg/dL [facility] GFR/1.73 sq M.predicted MDRD (S/P/Bld) [Vol rate/Area] 10.2 mL/min/{1.73_m2} Low - PINF [facility] Comment on above: Calculation based on the Chronic Kidney Disease Epidemiology Collaboration (CKD-EPI) equation refit without adjustment for race Glucose [Mass/Vol] 110 mg/dL High 70 - 100 mg/dL [facility] Interpretation and review of laboratory results Abnormal [facility] Potassium [Moles/Vol] 4.5 mmol/L 3.5 - 5.1 mmol/L [facility] Sodium [Moles/Vol] 133 mmol/L Low 135 - 145 mmol/L [facility] Urea nitrogen [Mass/Vol] 40 mg/dL High 9 - 20 mg/d L [facility] CBC W Auto Differential pane l (Bld)Ordered By: Aric Montejo on 08-16-2023 Basophils (Bld) [#/Vol] 0.1 10*3/uL 0.0 - 0.2 10*3/uL [facility] Basophils/100 WBC (Bld) 1.3 % 0.0 - 2.0 % [facility] Eosinophils (Bld) [#/Vol] 0.5 10*3/uL 0.0 - 0.5 10*3/uL [facility] Eosinophils/100 WBC (Bld) 5.1 % 1.0 - 6.0 % [facility] Erythrocyte distribution width (RBC) [Ratio] 14.7 % High 11.5 - 14.5 % [facility] Hematocrit (Bld) [Volume fraction] 41.6 % 40.0 - 52.0 % [facility] Hemoglobin (Bld) [Mass/Vol] 14.5 g/dL 13.0 - 18.0 g/dL [facility] Interpretation and review of laboratory results Abnormal [facility] Lymphocytes (Bld) [#/Vol] 1.3 10*3/uL 1.0 - 4.3 10*3/uL [facility] Lymphocytes/100 WBC (Bld) 14.2 % Low 20.0 - 40.0 % [facility] MCH (RBC) [Entitic mass] 31.5 pg 26. 0 - 34.0 pg [facility] MCHC (RBC) [Mass/Vol] 34.8 % 32.0 - 36.0 % [facility] MCV (RBC) [Entitic vol] 90.5 fL 80.0 - 98.0 fL [facility] Monocytes (Bld) [#/Vol] 1.3 10*3/uL High 0.0 - 0.8 10*3/uL [facility] Monocytes/100 WBC (Bld) 13.5 % High 2.0 - 10.0 % [facility] Neutrophils (Bld) [#/Vol] 6.2 10*3/uL 1.8 - 7.0 10*3/uL [facility] Neutrophils/100 WBC (Bld) 65.9 % 40.0 - 80.0 % [facility] Nucleated RBC/100 WBC (Bld) [Ratio] 0.1 % [facility] Platelet mean volume (Bld) [Entitic vol] 7.3 fL Low 7.4 - 12.4 fL [facility] Platelets (Bld) [#/Vol] 254 10*3/uL 140 - 440 10*3/uL [facility] RBC (Bld) [#/Vol] 4.60 10*6/uL 4.40 - 5.9 0 10*6/uL [facility] WBC (Bld) [#/Vol] 9.5 10*3/uL 3.6 - 10.7 10*3/uL [facility] Laboratory - Chemistry and C hemistry - challengeon 08-16-2023 Troponin I.cardiac [Mass/Vol] 0.062 ng/mL High [facility] - 0.034 ng/mL [facility] Troponin I.cardiac [Mass/Vol] 0.037 ng/mL High [facility] - 0.034 ng/mL [facility] Troponin I.cardiac [Mass/Vol ]on 08-16-2023 Interpretation and review of laboratory results Abnormal [facility] Patients with high levels of Biotin oral intake (ie >5 mg/day) may have falsely decreased Troponin levels. [facility] Interpretation and review of laboratory results Abnormal [facility] Patients with high levels of Biotin oral intake (ie >5 mg/day) may have falsely decreased Troponin levels. [facility] XR Chest Single viewon 08-16 1. Cardiomegaly. 2. No other acute findings. Report Dictated on Electronically Signed By: Justo Milan MD Electronically Signed Date/Time: 08/16/2023 6:42 PM [facility] SYSTEM Patient Name: JUN SNYDER : 1965 Exam Date/Time: 08/16/2023 18:39 Procedure: XR CHEST 1 VIEW Ordering Provider: GRANADOS SHAYA Reason For Exam: CHEST PAIN CHEST PORTABLE CLINICAL INDICATION: CHEST PAIN TECHNIQUE: Portable chest x-ray(s). COMPARISON: September,. FINDINGS: Mild cardiomegaly, stable. Lungs are grossly clear. No significant vascular congestion. No apparent pneumothorax. Bony thorax grossly unremarkable. [facility] Justo Milan MD - 08/16/2023 Patient Name: JNU SNYDER : 1965 Exam Date/Time: 08/16/2023 18:39 [...] Electronically Signed Date/Time: 08/16/2023 6:42 PM EST [facility] Radiology Study observation (narrative) [facility] XR Chest Single viewOrdered By: Justo Milan on 08-16-2023 [facility] Work Phone: POTASSIUM BLDon 12-17-2022 Potassium [Moles/Vol] 7.6 mmol/L Critically high 3.7-5.1 [facility] Comment on above: Order Comment: Speci men Type: BLOOD SPECIMEN Ordering Facility: [facility] Address: , , Performed By: #### K 1 #### [facility] CLIA [id number] [address] POTASSIUM BLDon 08-19-2022 Potassium [Moles/Vol] 7.0 mmol/L Critically high 3.7-5.1 [facility] Comment on above: Order Comment: Dominick richards Type: BLOOD SPECIMEN [facility] Address: , , Performed By: #### K 1 #### [facility] CLIA [id number] [address] POTASSIUM BLDon 06-16-2022 Potassium [Moles/Vol] 6.3 mmol/L Critically high 3.7-5.1 [facility] Comment on above: Order Comment: Dominick richards Type: BLOOD SPECIMEN Ordering Facility: [facility] Address: , , Performed By: #### K 1 #### [facility] CLIA [id number] [address] Hgb Bld-ncon 05-12-2022 Hemoglobin (Bld) [Mass/Vol] 8.4 g/dL Low 13.0-17.0 [facility] Comment on above: Order Comment: Dominick richards Type: BLOOD SPECIMEN [facility] Address: , , Performed By: #### 7 18-7 #### [facility] CLIA [id number] [address] [facility] XA Special Angiography Proce dureon 09-15-2021 XA Special Angiography Procedure Patient Name: JUN SNYDER Special Procedures ACCESSION EXAM DATE/TIME PROCEDURE ORDERING PROVIDER [id number] 09/15/2021 11:10 EST XA Special Angiography MD [...] and the needle was removed. A 3 Qatari dilator was advanced over the wire and [...] after procedure termination. Report Dictated on Workstation: [employer] Final Dictating Physician: MD VICENTE CHRISTOPHER Signed Date and Time: 09/15/2021 12:15 pm Signed by: MD VICENTE CHRISTOPHER Transcribed Date and Time: 09/15/2021 12:16 Normal [facility] IR DIALYSIS INJ W/ANGIOPLAST Yon 11-22-2020 [...] This was initially converted to a 6 Qatari sheath and later converted to a 7 Qatari sheath. Reflux fistulogram for done in several [...] levels with a 6 x 40 mm [place] balloon. This gave minimal improvement. We then exchanged the 6 mm balloon for an 8 x 40 mm [place] balloon. This gave more moderate improvement. At that point we changed the 6 Qatari sheath to a 7 Qatari sheath and placed a 9 x 40 [...] site of puncture trauma. With the 7 Qatari sheath removed pressure was held on the [...] dilation of stenotic lesion as noted above. Machine Shorthand Reporter: PSC[facility] Transcribe Date/Time: Nov 22 2020 2:07P Dictated by : VINCENT DE LA ROSA MD This examination was interpreted and the report reviewed and electronically signed by: VINCENT DE LA ROSA MD on Nov 22 2020 2:13PM EST Normal [facility] XA SPECIAL ANGIOGRAPHY PROCE TDon 10-17-2020 Patient Name: GLENN SNYDER Special Procedures ACCESSION EXAM DATE/TIME PROCEDURE ORDERING PROVIDER [id number] 10/17/2020 08:27 EST XA Special Angiography MD [...] 10/17/2020 1:05 [facility] Incoming Radiology Results From [facility] - 10/17/2020 1:05 PM EST [facility]: [id number] Special Procedures ACCESSION EXAM DATE/TIME PROCEDURE ORDERING PROVIDER [id number] 10/17/2020 08:27 EST XA Special Angiography MD DA, OCHOAYAPRAPATRICIA Procedure BISI Reason For Exam (XA Special [...] KEVIN Transcribed Date and Time: 10/17/2020 1:05 [facility] [place] XA Special Angiography Proce [facility] 10-17-2020 XA Special Angiography Procedure Patient Name: GLENN SNYDER Special Procedures ACCESSION EXAM DATE/TIME PROCEDURE ORDERING PROVIDER [id number] 10/17/2020 08:27 EST XA [facility] BISI Reason For Exam (XA [...] Transcribed Date and Time: 10/17/2020 1:05 Normal [facility] Basic Metabolic Panelon 04-27 Anion gap [Moles/Vol] 17 mmol/L Normal 9-18 [facility] Comment on above: Performed By: #### B MP #### [place] [address] Calcium [Mass/Vol] 9.1 mg/dL Normal 8.5-10.2 [facility] Comment on above: Performed By: #### B MP #### [facility] [address] [place], [place] [address] Chloride [Moles/Vol] 100 mmol/L Normal 97-105 [facility] Comment on above: Performed By: #### B MP #### [facility] [address] [place], [place] [address] CO2 Blood 18 mmol/L Low 22-30 [facility] Comment on above: Performed By: #### B MP #### [facility] [address] [place], [place] [address] Creatinine [Mass/Vol] 13.39 mg/dL High 0.73-1.22 [facility] Comment on above: Performed By: #### B MP #### [facility] [address] [place], [place] [address] Glucose [Mass/Vol] 83 mg/dL Normal 74-99 [facility] Comment on above: Result Comment: The [place] Diabetes Association (ADA) provides guidance for cutoff [...] Standards of Medical Care in Diabetes 2016; [place] [employer] Association. Diabetes Care. 2016;39(Suppl 1). Performed By: #### B MP #### [facility] [address] [place], [place] [address] Potassium [Moles/Vol] 4.8 mmol/L Normal 3.7-5.1 [facility] Comment on above: Performed By: #### B MP #### [facility] [address] [place], [place] [address] Sodium [Moles/Vol] 135 mmol/L Low 136-144 [facility] Comment on above: Performed By: #### B MP #### [facility] [address] [place] [address] Urea nitrogen [Mass/Vol] 61 mg/dL High 9-24 [facility] Comment on above: Performed By: #### B MP #### [facility] [address] [place] [address] Hemogramon 05-10-2020 Erythrocyte distribution width (RBC) [Ratio] 12.7 % Normal 11.6-14.4 [facility] Comment on above: Performed By: #### C BC1 #### [facility] [address] [place] [address] Hematocrit (Bld) [Volume fraction] 28.4 % Low 40.1-51.0 [facility] Comment on above: Performed By: #### C BC1 #### [facility] [address] [place] [address] Hemoglobin (Bld) [Mass/Vol] 9.2 g/dL Low 13.7-17.5 [facility] Comment on above: Performed By: #### C BC1 #### [facility] [address] [place] [address] MCH (RBC) [Entitic mass] 30.6 pg Normal 25.7-32.2 [facility] Comment on above: Performed By: #### C BC1 #### [facility] [address] [place] [address] MCHC (RBC) [Mass/Vol] 32.4 % Normal 32.3-36.5 [facility] Comment on above: Performed By: #### C BC1 #### [facility] [address] [place] [address] MCV (RBC) [Entitic vol] 94.4 fL Normal 83.2-95.6 [facility] Comment on above: Performed By: #### C BC1 #### [facility] [address] [place] [address] Platelet mean volume (Bld) [Entitic vol] 10.1 fL Normal 8.7-12.0 [facility] Comment on above: Performed By: #### C BC1 #### [facility] [address] [place], [place] [address] Platelets (Bld) [#/Vol] 278 thou/cmm Normal 141-365 [facility] Comment on above: Performed By: #### C BC1 #### [facility] [address] [place], [place] [address] RBC (Bld) [#/Vol] 3.01 mil/cmm Low 4.63-6.08 [facility] Comment on above: Performed By: #### C BC1 #### [facility] [address] [place], [place] [address] RDW SD 43.8 fl Normal 36.1-45.8 [facility] Comment on above: Performed By: #### C BC1 #### [facility] [address] [place], [place] [address] WBC (Bld) [#/Vol] 8.58 thou/cmm Normal 4.23-9.07 [facility] Comment on above: Performed By: #### C BC1 #### [facility] [address] [place], [place] [address] MDRD GFRon 05-10-2020 GFR/1.73 sq M predicted among non-blacks MDRD (S/P/Bld) [Vol rate/Area] 3.89 mL/min/{1.73_m2} Normal >60mL/min/1.7 3m2 [facility] Comment on above: Result Comment: If t he patient is , multiply the result by 1.210. Performed By: #### G FR #### [facility] [address] [place] [id number] Protimeon 05-10-2020 INR Coag (PPP) [Relative time] 0.98 {INR} Normal 0.90-1.30 [facility] Comment on above: Result Comment: Conchita min K Antagonist (VKA) Therapeutic Range: INR 2 to 3 (Target INR of 2.5) Note: For patients treated with VKA drugs, such as warfarin, the [place] [employer] 2012 Guideline recommends [...] [phone] Performed By: #### P T #### [place] [address] PT Coag (PPP) [Time] 10.6 s Normal 9.7-13.0 [facility] Comment on above: Performed By: #### P T #### [place] [address] Rapid, COVID 19on 03-20-2020 Rapid, COVID 19 Negative Normal Negative [facility] Comment on above: Result Comment: This test has been authorized by the FDA under an Emergency Use Authorization (EUA). Performed By: #### R COVD #### [place] [address] Basic Metabolic Panelon 02-25 Anion gap [Moles/Vol] 14 mmol/L Normal 9-18 [facility] Comment on above: Performed By: #### B MP #### [place] [address] Calcium [Mass/Vol] 10.0 mg/dL Normal 8.5-10.2 [facility] Comment on above: Performed By: #### B MP #### [place] [id number] Chloride [Moles/Vol] 95 mmol/L Low 97-105 [facility] Comment on above: Performed By: #### B MP #### [place] [id number] CO2 Blood 26 mmol/L Normal 22-30 [facility] Comment on above: Performed By: #### B MP #### [facility] [address] [place], [place] [address] Creatinine [Mass/Vol] 9.29 mg/dL High 0.73-1.22 [facility] Comment on above: Performed By: #### B MP #### [facility] [address] [place], [place] [address] Glucose [Mass/Vol] 84 mg/dL Normal 74-99 [facility] Comment on above: Result Comment: The [place] Diabetes Association (ADA) provides guidance for cutoff [...] Standards of Medical Care in Diabetes 2016; [place] Diabetes Association. Diabetes Care. 2016;39(Suppl 1). Performed By: #### B MP #### [facility] [address] [place], [place] [address] Potassium [Moles/Vol] 3.7 mmol/L Normal 3.7-5.1 [facility] Comment on above: Performed By: #### B MP #### [facility] [address] [place], [place] [address] Sodium [Moles/Vol] 135 mmol/L Low 136-144 [facility] Comment on above: Performed By: #### B MP #### [facility] [address] [place], [place] [address] Urea nitrogen [Mass/Vol] 32 mg/dL High 9-24 [facility] Comment on above: Performed By: #### B MP #### [facility] [address] [place], [place] [address] Hematologyon 03-13-2020 INR Coag (PPP) [Relative time] 0.96 {INR} 0.90 - 1.30 [facility] PT Coag (PPP) [Time] 10.4 s 9.7 - 1 3.0 sec [facility] Hematocrit (Bld) [Volume fraction] 30.6 % Low 40.1 - 51.0 % [facility] Hemoglobin (Bld) [Mass/Vol] 10.8 g/dL Low 13.7 - 17.5 g/dL [facility] MCH (RBC) [Entitic mass] 31.0 pg 25. 7 - 32.2 pg [facility] MCV (RBC) [Entitic vol] 87.9 fL 83.2 - 95.6 fl [facility] Platelets (Bld) [#/Vol] 269 thou/cmm 141 - 365 thou/cmm [facility] RBC (Bld) [#/Vol] 3.48 mil/cmm Low 4.63 - 6.0 8 mil/cmm [facility] WBC (Bld) [#/Vol] 10.79 thou/cmm High 4.23 - 9 .07 thou/cmm [facility] Hemogramon 03-13-2020 Erythrocyte distribution width (RBC) [Ratio] 13.2 % Normal 11.6-14.4 [facility] Comment on above: Performed By: #### C BC1 #### [facility] [address] [place], [place] [address] Hematocrit (Bld) [Volume fraction] 30.6 % Low 40.1-51.0 [facility] Comment on above: Performed By: #### C BC1 #### [facility] [address] [place], [place] [address] Hemoglobin (Bld) [Mass/Vol] 10.8 g/dL Low 13.7-17.5 [facility] Comment on above: Performed By: #### C BC1 #### [facility] [address] [place], [place] [address] MCH (RBC) [Entitic mass] 31.0 pg Normal 25.7-32.2 [facility] Comment on above: Performed By: #### C BC1 #### [facility] [address] [place], [place] [address] MCHC (RBC) [Mass/Vol] 35.3 % Normal 32.3-36.5 [facility] Comment on above: Performed By: #### C BC1 #### [facility] [address] [place], [place] [address] MCV (RBC) [Entitic vol] 87.9 fL Normal 83.2-95.6 [facility] Comment on above: Performed By: #### C BC1 #### [facility] [address] [place], [place] [address] Platelet mean volume (Bld) [Entitic vol] 10.1 fL Normal 8.7-12.0 [facility] Comment on above: Performed By: #### C BC1 #### [facility] [address] [place] [address] Platelets (Bld) [#/Vol] 269 thou/cmm Normal 141-365 [facility] Comment on above: Performed By: #### C BC1 #### [facility] [address] [place] [address] RBC (Bld) [#/Vol] 3.48 mil/cmm Low 4.63-6.08 [facility] Comment on above: Performed By: #### C BC1 #### [facility] [address] [place] [address] RDW SD 42.3 fl Normal 36.1-45.8 [facility] Comment on above: Performed By: #### C BC1 #### [facility] [address] [place], [place] [address] WBC (Bld) [#/Vol] 10.79 thou/cmm High 4.23-9.07 [facility] Comment on above: Performed By: #### C BC1 #### [facility] [address] [place], [place] [address] MDRD GFRon 03-13-2020 GFR/1.73 sq M predicted among non-blacks MDRD (S/P/Bld) [Vol rate/Area] 5.94 mL/min/{1.73_m2} Normal >60mL/min/1.7 3m2 [facility] Comment on above: Result Comment: If t he patient is , multiply the result by 1.210. Performed By: #### G FR #### [facility] [address] [place] [id number] Metabolic Panelon 03-13-2020 Anion gap [Moles/Vol] 14 mmol/L 9 - 18 mmol/L [facility] Calcium [Mass/Vol] 10.0 mg/dL 8.5 - 10. 2 mg/dL [facility] Chloride [Moles/Vol] 95 mmol/L Low 97 - 10 5 mmol/L [facility] CO2 [Moles/Vol] 26 mmol/L 22 - 30 mmol/L [facility] Creatinine [Mass/Vol] 9.29 mg/dL High 0.73 - 1.22 mg/dL [facility] Glucose [Mass/Vol] 84 mg/dL 74 - 99 mg/dL [facility] Potassium [Moles/Vol] 3.7 mmol/L 3.7 - 5.1 mmol/L [facility] Sodium [Moles/Vol] 135 mmol/L Low 136 - 144 mmol/L [facility] Urea nitrogen [Mass/Vol] 32 mg/dL High 9 - 24 mg/d L [facility] Otheron 03-13-2020 GFR/1.73 sq M.predicted MDRD (S/P/Bld) [Vol rate/Area] 5.94 mL/min/{1.73_m2} >60mL/min/1.7 3m2 [facility] Erythrocyte distribution width (RBC) [Entitic vol] 42.3 fL 36.1 - 45.8 fl [facility] Erythrocyte distribution width (RBC) [Ratio] 13.2 % 11.6 - 14.4 % [facility] MCHC (RBC) [Mass/Vol] 35.3 % 32.3 - 36.5 % [facility] Platelet mean volume (Bld) [Entitic vol] 10.1 fL 8.7 - 12.0 fl [facility] Protimeon 03-13-2020 INR Coag (PPP) [Relative time] 0.96 {INR} Normal 0.90-1.30 [facility] Comment on above: Result Comment: Conchita min K Antagonist (VKA) Therapeutic Range: INR 2 to 3 (Target INR of 2.5) Note: For patients treated with VKA drugs, such as warfarin, the [place] [employer]icians 2012 Guideline recommends [...] Chest 2012; 141:7S-47S Randall PATTON et al. [facility] 2017; 70: 252-289 Performed By: #### P T #### [facility] [address] [place] [address] PT Coag (PPP) [Time] 10.4 s Normal 9.7-13.0 [facility] Comment on above: Performed By: #### P T #### [facility] [address] [place] [address] US VEIN MAPPING UPPER BILon 02-13-2020 US VEIN MAPPING UPPER HO * * *Final Report* * * DATE OF EXAM: Feb 13 2020 2:22PM [facility] 1085 - VEIN MAPPING UPPER HO [...] unobstructed. There is no deep venous thrombosis. Machine Shorthand Reporter: [facility] Transcribe Date/Time: Feb 13 2020 4:27P Dictated by : ANALISA GRANADOS MD This examination was interpreted and the report reviewed and electronically signed by: ANALISA GRANADOS MD on Feb 13 2020 4:30PM EST Normal [facility] Basic Metabolic PanelOrdered By: Darell Sanches on 10-27-2019 Anion gap [Moles/Vol] 18 mmol/L [facility] Work Phone: Calcium [Mass/Vol] 9.2 mg/dL 8.4 - 10. 4 mg/dL [facility] Work Phone: Chloride [Moles/Vol] 93 mmol/L Low 98 - 10 7 mmol/L [facility] Work Phone: CO2 [Moles/Vol] 24 mmol/L 22 - 30 mmol/L [facility] Work Phone: [phone] Creatinine [Mass/Vol] 9.99 mg/dL High 0.52 - 1.25 mg/dL [facility] Work Phone: [phone] EGFR IF NonAfrican [place]i 5.5 mL/min >60 [facility] Work Phone: Comment on above: Source- MDRD equatio n with creatinine calibration to IDMS(NKDEP) eGFR not recommended for drug dose adjustment GFR/1.73 sq M.predicted among blacks MDRD (S/P/Bld) [Vol rate/Area] 6.6 mL/min/{1.73_m2} >60 [employer] Work Phone: [phone] Glucose [Mass/Vol] 103 mg/dL High 70 - 100 mg/dL [facility] Work Phone: Potassium [Moles/Vol] 4.5 mmol/L 3.5 - 5.1 mmol/L [facility] Work Phone: Sodium [Moles/Vol] 135 mmol/L 135 - 145 mmol/L [employer] Work Phone: Urea nitrogen [Mass/Vol] 49 mg/dL High 7 - 20 mg/d L [employer] Work Phone: CBC Auto DifferentialOrdered By: Darell Sanches on 10-27-2019 Absolute Baso # 0.1 10*3/uL 0 - 0.2 10*3/uL [employer] Work Phone: [phone] Absolute Neut # 6.6 10*3/uL 1.8 - 7 10*3/uL [employer] Work Phone: [phone] Basophils/100 WBC (Bld) 0.7 % 0 - 2 % [facility] Work Phone: Eosinophils (Bld) [#/Vol] 0.5 10*3/uL 0 - 0.5 10*3/uL [employer] Work Phone: [phone] Eosinophils/100 WBC (Bld) 4.9 % 1 - 6 % [facility] Work Phone: [phone] Erythrocyte distribution width (RBC) [Ratio] 14.0 % 11.5 - 14.5 % [employer] Work Phone: [phone] Granulocytes/100 WBC (Bld) 62.2 % 40 - 80 % [employer] Work Phone: [phone] Hematocrit (Bld) [Volume fraction] 28.3 % Low 40 - 52 % [employer] Work Phone: [phone] Hemoglobin (Bld) [Mass/Vol] 9.5 g/dL Low 13 - 18 g/dL [employer] Work Phone: 1 Lymphocytes (Bld) [#/Vol] 2.0 10*3/uL 1 - 4.3 10*3/uL [employer] Work Phone: 1 Lymphocytes/100 WBC (Bld) 18.8 % Low 20 - 40 % [facility] Work Phone: 1 MCH (RBC) [Entitic mass] 29.1 pg 26 - 34 pg [employer] Work Phone: 1 MCHC 33.6 % 32 - 36 % [employer] Work Phone: 1 MCV (RBC) [Entitic vol] 86.7 fL 80 - 98 fL S [employer] Work Phone: 1 Monocytes (Bld) [#/Vol] 1.4 10*3/uL High 0 - 0.8 10*3/uL [employer] Work Phone: 1 Monocytes/100 WBC (Bld) 13.4 % High 2 - 10 % S [employer] Work Phone: 1 Platelet mean volume (Bld) [Entitic vol] 8.2 fL 7.4 - 10.4 fL [employer] Work Phone: 1 Platelets (Bld) [#/Vol] 259 10*3/uL 140 - 440 10*3/uL [employer] Work Phone: 1 RBC (Bld) [#/Vol] 3.27 10*6/uL Low 4.4 - 5.9 10*6/uL [employer] Work Phone: 1 WBC (Bld) [#/Vol] 10.6 10*3/uL 3.6 - 10.7 10*3/uL [employer] Work Phone: 1 MAGNESIUMOrdered By: Darell Sanches on 10-27-2019 Magnesium [Mass/Vol] 2.6 mg/dL High 1.6 - 2 .3 mg/dL [facility] Work Phone: 1 No Panel InformationOrdered By: Darell Sanches on 10-27-2019 Interpretation and review of laboratory results Abnormal [facility] Work Phone: 1 Test Performed by [employer], [address] [place], [place] [address] [facility] Work Phone: 1 PhosphorusOrdered By: Darell Sanches on 10-27-2019 Phosphate [Mass/Vol] 9.9 mg/dL High 2.5 - 4 .5 mg/dL [facility] Work Phone: 1 Basic Metabolic PanelOrdered By: Darell Sanches on 10-26-2019 Anion gap [Moles/Vol] 14 mmol/L [facility] Work Phone: Calcium [Mass/Vol] 9.0 mg/dL 8.4 - 10. 4 mg/dL [facility] Work Phone: Chloride [Moles/Vol] 94 mmol/L Low 98 - 10 7 mmol/L [facility] Work Phone: CO2 [Moles/Vol] 29 mmol/L 22 - 30 mmol/L [facility] Work Phone: 1 Creatinine [Mass/Vol] 7.06 mg/dL High 0.52 - 1.25 mg/dL [facility] Work Phone: EGFR IF NonAfrican [place]raini 8.2 mL/min >60 [facility] Work Phone: Comment on above: Source- MDRD equatio n with creatinine calibration to IDMS(NKDEP) eGFR not recommended for drug dose adjustment GFR/1.73 sq M.predicted among blacks MDRD (S/P/Bld) [Vol rate/Area] 9.9 mL/min/{1.73_m2} >60 [facility] Work Phone: 1 Glucose [Mass/Vol] 95 mg/dL 70 - 100 mg/dL [facility] Work Phone: Potassium [Moles/Vol] 4.2 mmol/L 3.5 - 5.1 mmol/L [facility] Work Phone: Sodium [Moles/Vol] 136 mmol/L 135 - 145 mmol/L [facility] Work Phone: 1 Urea nitrogen [Mass/Vol] 27 mg/dL High 7 - 20 mg/d L [facility] Work Phone: [phone] CBC Auto DifferentialOrdered By: Darell Sanches on 10-26-2019 Absolute Baso # 0.1 10*3/uL 0 - 0.2 10*3/uL [facility] Work Phone: [phone] Absolute Neut # 7.1 10*3/uL High 1.8 - 7 10*3/uL [facility] Work Phone: [phone] 22 Basophils/100 WBC (Bld) 0.8 % 0 - 2 % S [employer] Work Phone: Eosinophils (Bld) [#/Vol] 0.5 10*3/uL 0 - 0.5 10*3/uL [employer] Work Phone: 1 Eosinophils/100 WBC (Bld) 4.7 % 1 - 6 % [employer] Work Phone: 1 Erythrocyte distribution width (RBC) [Ratio] 13.9 % 11.5 - 14.5 % [employer] Work Phone: Granulocytes/100 WBC (Bld) 63.9 % 40 - 80 % [facility] Work Phone: Hematocrit (Bld) [Volume fraction] 29.2 % Low 40 - 52 % [employer] Work Phone: Hemoglobin (Bld) [Mass/Vol] 9.9 g/dL Low 13 - 18 g/dL [employer] Work Phone: 1 Interpretation and review of laboratory results Abnormal [employer] Work Phone: Lymphocytes (Bld) [#/Vol] 2.0 10*3/uL 1 - 4.3 10*3/uL [facility] Work Phone: 22 Lymphocytes/100 WBC (Bld) 17.8 % Low 20 - 40 % [employer] Work Phone: MCH (RBC) [Entitic mass] 29.5 pg 26 - 34 pg [facility] Work Phone: 22 MCHC 33.9 % 32 - 36 % [facility] Work Phone: 1 MCV (RBC) [Entitic vol] 87.0 fL 80 - 98 fL S [employer] Work Phone: Monocytes (Bld) [#/Vol] 1.4 10*3/uL High 0 - 0.8 10*3/uL [facility] Work Phone: Monocytes/100 WBC (Bld) 12.8 % High 2 - 10 % S [facility] Work Phone: Platelet mean volume (Bld) [Entitic vol] 8.0 fL 7.4 - 10.4 fL [employer] Work Phone: Platelets (Bld) [#/Vol] 262 10*3/uL 140 - 440 10*3/uL [facility] Work Phone: RBC (Bld) [#/Vol] 3.36 10*6/uL Low 4.4 - 5.9 10*6/uL [employer] Work Phone: WBC (Bld) [#/Vol] 11.0 10*3/uL High 3.6 - 10.7 10*3/uL [employer] Work Phone: Test Performed by [employer], [address] [place] [id number] [facility] Work Phone: Culture Blood #1Ordered By: Brett Encarnacion on 10-26-2019 Blood Culture, Routine [employer] testing is not routinely performed on Gram positive bacilli. If a Listeria infection is highly suspected, contact the Microbiology laboratory [phone]). Abnormal [employer] Work Phone: Blood Culture, Routine Propionibacterium acnes Abnormal [employer] Work Phone: Blood Culture, Routine Isolated: Contamination likely unless additional blood culture sets are found to be positive with the same organism. [employer] Work Phone: Interpretation and review of laboratory results Abnormal [employer] Work Phone: Test Performed by [employer] [address] Specimen Source Comment:Blood [facility] Work Phone: MAGNESIUMOrdered By: Darell Sanches on 10-26-2019 Magnesium [Mass/Vol] 2.2 mg/dL 1.6 - 2 .3 mg/dL [employer] Work Phone: No Panel InformationOrdered By: Darell Sanches on 10-26-2019 Interpretation and review of laboratory results Abnormal [facility] Work Phone: [phone] Performed by [employer] [facility], [address] [place], [place] [address] [facility] Work Phone: [phone] PhosphorusOrdered By: Darell Sanches on 10-26-2019 Phosphate [Mass/Vol] 7.1 mg/dL High 2.5 - 4 .5 mg/dL [facility] Work Phone: [phone] US BIOPSY RENAL RIGHT PERCOr dered By: Cindy Patel on 10-26-2019 Patient Name: GLENN SNYDER ---Ultrasound--- Exam Date/Time 10/26/2019 10:57:27 EST Exam US Biopsy Renal Right Ordering Physician MD DA, CINDY MATHEWS Accession Number [id number] CPT4 Codes 95748 (), 38431 () Reason For Exam renal failure Report ULTRASOUND GUIDED RIGHT LOWER POLE KIDNEY BIOPSY Reasons for examination: Acute renal failure. After review of prior studies, patient interview and examination, the risks, benefits, and alternatives of the biopsy procedure were discussed, informed consent was obtained. Cath Lab Manager US scans of the right kidney were [...] RICHARD Transcribed Date and Time: 10/26/2019 12:05 [facility] Work Phone: Mike, [facility] Incoming Radiology Results From [facility] - 10/26/2019 12:05 PM EST Patient Name: GLENN SNYDER ---Ultrasound--- Exam Date/Time 10/26/2019 10:57:27 EST Exam US Biopsy Renal Right Ordering Physician MD DA, [facility] Accession Number [id number] CPT4 Codes 37282 (), 56340 () Reason For Exam renal failure Report ULTRASOUND GUIDED RIGHT LOWER POLE KIDNEY BIOPSY Reasons for examination: Acute renal failure. After review of prior studies, patient interview and examination, the risks, benefits, and alternatives of the biopsy procedure were discussed, informed consent was obtained. Cath Lab Manager US scans of the right kidney were [...] RICHARD Transcribed Date and Time: 10/26/2019 12:05 [facility] Work Phone: [phone] SPECIAL ANGIOGRAPHY PROCE DUREOrdered By: Jeana Pedraza on 10-26-2019 Patient Name: GLENN SNYDER ---Special Procedures--- Exam Date/Time 10/26/2019 15:01:32 EST Exam XA Special Angiography Procedure Ordering Physician MD KEILA, JEANA Accession Number [id number] Reason For Exam non tunneled to tunneled [...] Phone: Mike, [facility] Incoming Radiology Results From [facility] - 10/26/2019 3:29 PM EST Patient Name: GLENN SNYDER ---Special Procedures--- Exam Date/Time 10/26/2019 15:01:32 EST Exam XA Special Angiography Procedure Ordering Physician MD KEILA, RIIZ Accession Number [id number] Reason For Exam non tunneled to tunneled [...] Date and Time: 10/26/2019 3:28 [facility] Work Phone: Basic Metabolic PanelOrdered By: Darell Sanches on 10-25-2019 Anion gap [Moles/Vol] 15 mmol/L [facility] Work Phone: [phone] Calcium [Mass/Vol] 8.7 mg/dL 8.4 - 10. 4 mg/dL [facility] Work Phone: Chloride [Moles/Vol] 95 mmol/L Low 98 - 10 7 mmol/L [facility] Work Phone: [phone] CO2 [Moles/Vol] 26 mmol/L 22 - 30 mmol/L [facility] Work Phone: [phone] Creatinine [Mass/Vol] 9.71 mg/dL High 0.52 - 1.25 mg/dL [facility] Work Phone: [phone] IF NonAfrican Bahraini 5.7 mL/min >60 [facility] Work Phone: [phone] Comment on above: Source- MDRD equatio n with creatinine calibration to IDMS(NKDEP) eGFR not recommended for drug dose adjustment GFR/1.73 sq M.predicted among blacks MDRD (S/P/Bld) [Vol rate/Area] 6.9 mL/min/{1.73_m2} >60 [facility] Work Phone: [phone] Glucose [Mass/Vol] 96 mg/dL 70 - 100 mg/dL [facility] Work Phone: [phone] Potassium [Moles/Vol] 4.3 mmol/L 3.5 - 5.1 mmol/L [facility] Work Phone: [phone] Sodium [Moles/Vol] 135 mmol/L 135 - 145 mmol/L [facility] Work Phone: [phone] Urea nitrogen [Mass/Vol] 39 mg/dL High 7 - 20 mg/d L [facility] Work Phone: [phone] Auto DifferentialOrdered By: Darell Sanches on 10-25-2019 Absolute Baso # 0.1 10*3/uL 0 - 0.2 10*3/uL [facility] Work Phone: Absolute Neut # 6.7 10*3/uL 1.8 - 7 10*3/uL [facility] Work Phone: [phone] Basophils/100 WBC (Bld) 0.9 % 0 - 2 % S [facility] Work Phone: [phone] Eosinophils (Bld) [#/Vol] 0.5 10*3/uL 0 - 0.5 10*3/uL [facility] Work Phone: Eosinophils/100 WBC (Bld) 4.5 % 1 - 6 % [employer] Work Phone: 1 Erythrocyte distribution width (RBC) [Ratio] 13.8 % 11.5 - 14.5 % [employer] Work Phone: [phone] 22 Granulocytes/100 WBC (Bld) 60.1 % 40 - 80 % [employer] Work Phone: Hematocrit (Bld) [Volume fraction] 28.3 % Low 40 - 52 % [employer] Work Phone: 1 Hemoglobin (Bld) [Mass/Vol] 9.7 g/dL Low 13 - 18 g/dL [employer] Work Phone: 1 Interpretation and review of laboratory results Abnormal [employer] Work Phone: 1 Lymphocytes (Bld) [#/Vol] 2.6 10*3/uL 1 - 4.3 10*3/uL [employer] Work Phone: 1 Lymphocytes/100 WBC (Bld) 22.9 % 20 - 40 % [employer] Work Phone: 1 MCH (RBC) [Entitic mass] 30.0 pg 26 - 34 pg [employer] Work Phone: 1 MCHC 34.3 % 32 - 36 % [employer] Work Phone: 1 MCV (RBC) [Entitic vol] 87.3 fL 80 - 98 fL S [employer] Work Phone: Monocytes (Bld) [#/Vol] 1.3 10*3/uL High 0 - 0.8 10*3/uL [employer] Work Phone: 1 22 Monocytes/100 WBC (Bld) 11.6 % High 2 - 10 % S [employer] Work Phone: Platelet mean volume (Bld) [Entitic vol] 8.1 fL 7.4 - 10.4 fL [employer] Work Phone: 1 Platelets (Bld) [#/Vol] 252 10*3/uL 140 - 440 10*3/uL [employer] Work Phone: RBC (Bld) [#/Vol] 3.24 10*6/uL Low 4.4 - 5.9 10*6/uL [facility] Work Phone: WBC (Bld) [#/Vol] 11.2 10*3/uL High 3.6 - 10.7 10*3/uL [facility] Work Phone: Test Performed by [facility], [facility] [address] Work Phone: MAGNESIUMOrdered By: Darell Sanches on 10-25-2019 Magnesium [Mass/Vol] 2.2 mg/dL 1.6 - 2 .3 mg/dL [facility] Work Phone: No Panel InformationOrdered By: Darell Snaches on 10-25-2019 Interpretation and review of laboratory results Abnormal [facility] Work Phone: Test Performed by [place] [address] [address] Work Phone: PhosphorusOrdered By: Darell Sanches on 10-25-2019 Phosphate [Mass/Vol] 9.3 mg/dL High 2.5 - 4 .5 mg/dL [facility] Work Phone: APTTOrdered By: Cindy Patel on 10-24-2019 aPTT Coag (Bld) [Time] 28.5 s 20 - 30.5 s S [facility] Work Phone: Comment on above: NOTE: The therapeuti c time for Heparin anticoagulation, based on Xa activity inhibition, is an APTT of 46-80 seconds. Basic Metabolic PanelOrdered By: Darell Sanches on 10-24-2019 Anion gap [Moles/Vol] 10 mmol/L [facility] Work Phone: Calcium [Mass/Vol] 8.6 mg/dL 8.4 - 10. 4 mg/dL [facility] Work Phone: Chloride [Moles/Vol] 94 mmol/L Low 98 - 10 7 mmol/L [facility] Work Phone: CO2 [Moles/Vol] 31 mmol/L High 22 - 30 mmol/L [facility] Work Phone: Creatinine [Mass/Vol] 7.11 mg/dL High 0.52 - 1.25 mg/dL [employer] Work Phone: [phone] EGFR IF NonAfrican Bahraini 8.1 mL/min >60 [employer] Work Phone: [phone] Comment on above: Source- MDRD equatio n with creatinine calibration to IDMS(NKDEP) eGFR not recommended for drug dose adjustment GFR/1.73 sq M.predicted among blacks MDRD (S/P/Bld) [Vol rate/Area] 9.8 mL/min/{1.73_m2} >60 [facility] Work Phone: [phone] Glucose [Mass/Vol] 93 mg/dL 70 - 100 mg/dL [employer] Work Phone: [phone] Potassium [Moles/Vol] 4.1 mmol/L 3.5 - 5.1 mmol/L [employer] Work Phone: [phone] Sodium [Moles/Vol] 135 mmol/L 135 - 145 mmol/L [employer] Work Phone: [phone] Urea nitrogen [Mass/Vol] 28 mg/dL High 7 - 20 mg/d L [employer] Work Phone: [phone] Auto DifferentialOrdered By: Darell Sanches on 10-24-2019 Absolute Baso # 0.1 10*3/uL 0 - 0.2 10*3/uL [employer] Work Phone: [phone] Absolute Neut # 6.2 10*3/uL 1.8 - 7 10*3/uL [employer] Work Phone: [phone] Basophils/100 WBC (Bld) 0.7 % 0 - 2 % [facility] Work Phone: [phone] Eosinophils (Bld) [#/Vol] 0.4 10*3/uL 0 - 0.5 10*3/uL [employer] Work Phone: Eosinophils/100 WBC (Bld) 3.7 % 1 - 6 % [facility] Work Phone: [phone] Erythrocyte distribution width (RBC) [Ratio] 14.0 % 11.5 - 14.5 % [facility] Work Phone: [phone] Granulocytes/100 WBC (Bld) 63.8 % 40 - 80 % [employer] Work Phone: 1 Hematocrit (Bld) [Volume fraction] 27.0 % Low 40 - 52 % [employer] Work Phone: 1 Hemoglobin (Bld) [Mass/Vol] 9.2 g/dL Low 13 - 18 g/dL [employer] Work Phone: 1 Interpretation and review of laboratory results Abnormal [employer] Work Phone: 1 Lymphocytes (Bld) [#/Vol] 1.8 10*3/uL 1 - 4.3 10*3/uL [employer] Work Phone: 1 22 Lymphocytes/100 WBC (Bld) 18.8 % Low 20 - 40 % [employer] Work Phone: 1 MCH (RBC) [Entitic mass] 29.6 pg 26 - 34 pg [employer] Work Phone: 1 MCHC 34.1 % 32 - 36 % [employer] Work Phone: 1 MCV (RBC) [Entitic vol] 86.9 fL 80 - 98 fL S [employer] Work Phone: 1 Monocytes (Bld) [#/Vol] 1.3 10*3/uL High 0 - 0.8 10*3/uL [employer] Work Phone: 1 22 Monocytes/100 WBC (Bld) 13.0 % High 2 - 10 % S [employer] Work Phone: 1 Platelet mean volume (Bld) [Entitic vol] 8.4 fL 7.4 - 10.4 fL [employer] Work Phone: 1 22 Platelets (Bld) [#/Vol] 245 10*3/uL 140 - 440 10*3/uL [employer] Work Phone: 1 22 RBC (Bld) [#/Vol] 3.10 10*6/uL Low 4.4 - 5.9 10*6/uL [employer] Work Phone: 1 22 WBC (Bld) [#/Vol] 9.7 10*3/uL 3.6 - 10.7 10*3/uL [employer] Work Phone: [phone] Culture Blood #1Ordered By: Brett Encarnacion on 10-24-2019 Blood Culture, Routine No growth at 5 days. [facility] Work Phone: 1 Test Performed by [facility] [employer], [address] [place] [id number] Specimen Source Comment:Blood [facility] Work Phone: 1 Glomerular Basement Membrane (GBM) Antibody IgGOrdered By: Randolph Euceda on 10-24-2019 GBM Ab, IgG (IFA) Negative Negative NA [facility] Work Phone: 1 Comment on above: INTERPRETIVE [...] biopsy. Test developed and characteristics determined by [facility]. See Compliance Statement D: [employer]/ Performed by [facility], [address] [place] [id number] [email or web address], Malvin Slade MD, Lab. Director MAGNESIUMOrdered By: Darell Sanches on 10-24-2019 Magnesium [Mass/Vol] 2.1 mg/dL 1.6 - 2 .3 mg/dL [facility] Work Phone: 1 No Panel InformationOrdered By: Darell Sanches on 10-24-2019 Interpretation and review of laboratory results Abnormal [facility] Work Phone: Test Performed by [facility], [address] [place], [place] [address] [place], [place] [address]A Work Phone: Test Performed by [facility] [employer], [address] [place], [place] [address] [facility] Work Phone: PhosphorusOrdered By: Darell Sanches on 10-24-2019 Phosphate [Mass/Vol] 5.8 mg/dL High 2.5 - 4 .5 mg/dL [facility] Work Phone: 1 Protime-INROrdered By: Darren Patel on 10-24-2019 INR [...] [Moles/Vol] 17 mmol/L [facility] Work Phone: [phone] Calcium [Mass/Vol] 8.6 mg/dL 8.4 - 10. 4 mg/dL [facility] Work Phone: Chloride [Moles/Vol] 94 mmol/L Low 98 - 10 7 mmol/L [facility] Work Phone: CO2 [Moles/Vol] 24 mmol/L 22 - 30 mmol/L [facility] Work Phone: [phone] Creatinine [Mass/Vol] 11.03 mg/dL High 0.52 - 1.25 mg/dL [facility] Work Phone: [phone] EGFR IF NonAfrican Bahraini 4.9 mL/min >60 [facility] Work Phone: Comment on above: Source- MDRD equatio n with creatinine calibration to IDMS(NKDEP) eGFR not recommended for drug dose adjustment GFR/1.73 sq M.predicted among blacks MDRD (S/P/Bld) [Vol rate/Area] 5.9 mL/min/{1.73_m2} >60 [facility] Work Phone: Glucose [Mass/Vol] 97 mg/dL 70 - 100 mg/dL [facility] Work Phone: Potassium [Moles/Vol] 3.9 mmol/L 3.5 - 5.1 mmol/L [facility] Work Phone: [phone] Sodium [Moles/Vol] 135 mmol/L 135 - 145 mmol/L [facility] Work Phone: 1 Urea nitrogen [Mass/Vol] 61 mg/dL High 7 - 20 mg/d L [employer] Work Phone: [phone] CBC Auto DifferentialOrdered By: Darell Sanches on 10-23-2019 Absolute Baso # 0.1 10*3/uL 0 - 0.2 10*3/uL [facility] Work Phone: [phone] Absolute Neut # 7.1 10*3/uL High 1.8 - 7 10*3/uL [employer] Work Phone: 1 Basophils/100 WBC (Bld) 1.0 % 0 - 2 % [facility] Work Phone: Eosinophils (Bld) [#/Vol] 0.5 10*3/uL 0 - 0.5 10*3/uL [employer] Work Phone: 1 Eosinophils/100 WBC (Bld) 4.7 % 1 - 6 % [employer] Work Phone: 1 Erythrocyte distribution width (RBC) [Ratio] 13.8 % 11.5 - 14.5 % [employer] Work Phone: 1 Granulocytes/100 WBC (Bld) 65.3 % 40 - 80 % [employer] Work Phone: Hematocrit (Bld) [Volume fraction] 27.6 % Low 40 - 52 % [employer] Work Phone: Hemoglobin (Bld) [Mass/Vol] 9.5 g/dL Low 13 - 18 g/dL [employer] Work Phone: Interpretation and review of laboratory results Abnormal [employer] Work Phone: Lymphocytes (Bld) [#/Vol] 1.9 10*3/uL 1 - 4.3 10*3/uL [employer] Work Phone: 1 Lymphocytes/100 WBC (Bld) 17.3 % Low 20 - 40 % [employer] Work Phone: MCH (RBC) [Entitic mass] 29.7 pg 26 - 34 pg [employer] Work Phone: 1 MCHC 34.3 % 32 - 36 % [employer] Work Phone: 1 MCV (RBC) [Entitic vol] 86.6 fL 80 - 98 fL S [employer] Work Phone: 1 Monocytes (Bld) [#/Vol] 1.3 10*3/uL High 0 - 0.8 10*3/uL [employer] Work Phone: Monocytes/100 WBC (Bld) 11.7 % High 2 - 10 % S [employer] Work Phone: Platelet mean volume (Bld) [Entitic vol] 7.7 fL 7.4 - 10.4 fL [facility] Work Phone: 1 Platelets (Bld) [#/Vol] 248 10*3/uL 140 - 440 10*3/uL [employer] Work Phone: RBC (Bld) [#/Vol] 3.18 10*6/uL Low 4.4 - 5.9 10*6/uL [employer] Work Phone: WBC (Bld) [#/Vol] 10.8 10*3/uL High 3.6 - 10.7 10*3/uL [facility] Work Phone: Test Performed by [facility], [address] [place] [address] [employer] Work Phone: MAGNESIUMOrdered By: Darell Sanches on 10-23-2019 Magnesium [Mass/Vol] 2.1 mg/dL 1.6 - 2 .3 mg/dL [facility] Work Phone: No Panel InformationOrdered By: Darell Sanches on 10-23-2019 Interpretation and review of laboratory results Abnormal [facility] Work Phone: Test Performed by [facility] [employer], [address] [place] [address] [employer] Work Phone: PhosphorusOrdered By: Darell Sanches on 10-23-2019 Phosphate [Mass/Vol] 9.5 mg/dL High 2.5 - 4 .5 mg/dL [facility] Work Phone: [phone] Basic Metabolic PanelOrdered By: Delon Jessica on 10-22-2019 Anion gap [Moles/Vol] 14 mmol/L [facility] Work Phone: [phone] Calcium [Mass/Vol] 8.9 mg/dL 8.4 - 10. 4 mg/dL [facility] Work Phone: Chloride [Moles/Vol] 95 mmol/L Low 98 - 10 7 mmol/L [facility] Work Phone: 1 CO2 [Moles/Vol] 28 mmol/L 22 - 30 mmol/L [facility] Work Phone: [phone] Creatinine [Mass/Vol] 8.75 mg/dL High 0.52 - 1.25 mg/dL [facility] Work Phone: [phone] EGFR IF NonAfrican Bahraini 6.4 mL/min >60 [facility] Work Phone: [phone] Comment on above: Source- MDRD equatio n with creatinine calibration to IDMS(NKDEP) eGFR not recommended for drug dose adjustment GFR/1.73 sq M.predicted among blacks MDRD (S/P/Bld) [Vol rate/Area] 7.7 mL/min/{1.73_m2} >60 [facility] Work Phone: [phone] Glucose [Mass/Vol] 94 mg/dL 70 - 100 mg/dL [facility] Work Phone: Potassium [Moles/Vol] 4.3 mmol/L 3.5 - 5.1 mmol/L [facility] Work Phone: Sodium [Moles/Vol] 137 mmol/L 135 - 145 mmol/L [facility] Work Phone: [phone] Urea nitrogen [Mass/Vol] 53 mg/dL High 7 - 20 mg/d L [facility] Work Phone: [phone] CBC Auto DifferentialOrdered By: Delon Jessica on 10-22-2019 Absolute Baso # 0.1 10*3/uL 0 - 0.2 10*3/uL [facility] Work Phone: [phone] Absolute Neut # 5.9 10*3/uL 1.8 - 7 10*3/uL [facility] Work Phone: [phone] 22 Basophils/100 WBC (Bld) 0.9 % 0 - 2 % S [employer] Work Phone: Eosinophils (Bld) [#/Vol] 0.3 10*3/uL 0 - 0.5 10*3/uL [employer] Work Phone: 1 22 Eosinophils/100 WBC (Bld) 3.0 % 1 - 6 % [employer] Work Phone: 1 Erythrocyte distribution width (RBC) [Ratio] 14.2 % 11.5 - 14.5 % [employer] Work Phone: 1 Granulocytes/100 WBC (Bld) 63.0 % 40 - 80 % [employer] Work Phone: Hematocrit (Bld) [Volume fraction] 27.7 % Low 40 - 52 % [employer] Work Phone: Hemoglobin (Bld) [Mass/Vol] 9.4 g/dL Low 13 - 18 g/dL [employer] Work Phone: 1 Interpretation and review of laboratory results Abnormal [employer] Work Phone: 1 Lymphocytes (Bld) [#/Vol] 1.6 10*3/uL 1 - 4.3 10*3/uL [employer] Work Phone: 1 22 Lymphocytes/100 WBC (Bld) 17.2 % Low 20 - 40 % [employer] Work Phone: MCH (RBC) [Entitic mass] 29.3 pg 26 - 34 pg [employer] Work Phone: 22 MCHC 33.8 % 32 - 36 % [employer] Work Phone: 1 MCV (RBC) [Entitic vol] 86.7 fL 80 - 98 fL S [employer] Work Phone: Monocytes (Bld) [#/Vol] 1.5 10*3/uL High 0 - 0.8 10*3/uL [employer] Work Phone: 1 22 Monocytes/100 WBC (Bld) 15.9 % High 2 - 10 % S [employer] Work Phone: Platelet mean volume (Bld) [Entitic vol] 8.0 fL 7.4 - 10.4 fL [facility] Work Phone: 1 Platelets (Bld) [#/Vol] 264 10*3/uL 140 - 440 10*3/uL [facility] Work Phone: RBC (Bld) [#/Vol] 3.20 10*6/uL Low 4.4 - 5.9 10*6/uL [facility] Work Phone: WBC (Bld) [#/Vol] 9.3 10*3/uL 3.6 - 10.7 10*3/uL [facility] Work Phone: 1 Test Performed by [facility], [address] [place] [id number] [place], [place] [address] Work Phone: Calcium, IonizedOrdered By: Delon Jessica on 10-22-2019 Interpretation and review of laboratory results Abnormal [facility] Work Phone: Ionized Ca 4.20 mg/dL Low 4.3 - 5.2 mg/dL [facility] Work Phone: pH (Bld) 7.43 [pH] [facility] Work Phone: 1 Test Performed by [facility], [address] [place] [id number] [place], [place] [address] Work Phone: FOLATEOrdered By: Earlene deluna on 10-22-2019 Folate 9.2 ng/mL 2.8 - 20 ng/mL [facility] Work Phone: Glomerular Basement Membrane (GBM) Antibody IgGOrdered By: Jeana Pedraza on 10-22-2019 GBM Ab, IgG (IFA) Negative Negative NA [facility] Work Phone: Comment on above: INTERPRETIVE INFORMA [...] biopsy. Test developed and characteristics determined by [facility]. See Compliance Statement D: [employer] Performed by [facility], [address] [place] [address] www[employer], Malvin Slade MD, Lab. Director Iron and TIBCOrdered By: Al Irving on 10-22-2019 Interpretation and review of laboratory results Abnormal [facility] Work Phone: 1 Iron [Mass/Vol] 64 ug/dL 49 - 181 ug/dL [facility] Work Phone: Sat 27 % 15 - 50 % [facility] Work Phone: 1 TIBC 234 ug/dL Low 261 - 497 ug/dL [facility] Work Phone: Test Performed by [facility] [employer], [address] [place] [address] [facility] Work Phone: MagnesiumOrdered By: Delon Jessica on 10-22-2019 Magnesium [Mass/Vol] 2.0 mg/dL 1.6 - 2 .3 mg/dL [facility] Work Phone: No Panel InformationOrdered By: Earlene Irving on 10-22-2019 Test Performed by [employer] [facility], [address] [place] [address] [facility] Work Phone: 1 No Panel InformationOrdered By: Delon Jessica on 10-22-2019 Interpretation and review of laboratory results Abnormal [facility] Work Phone: Test Performed by [facility], [address] [place] [address] [facility] Work Phone: PhosphorusOrdered By: Patrick Jessica on 10-22-2019 Phosphate [Mass/Vol] 8.7 mg/dL High 2.5 - 4 .5 mg/dL [facility] Work Phone: T4, FREEOrdered By: Earlene toure on 10-22-2019 Free T4 [Mass/Vol] 1.16 ng/dL 0.78 - 2. 19 ng/dL [facility] Work Phone: Test Performed by [facility] [employer], [address] [facility] [place] [address] [facility] Work Phone: TSH without ReflexOrdered By : Earlene Irving on 10-22-2019 TSH 0.836 u[IU]/mL 0.465 - 4.68 u[IU]/mL [facility] Work Phone: Test Performed by [facility], [address] [place], [place], [place] [address] [facility] Work Phone: VL RENAL ARTERIAL DUPLEX COM PLETEOrdered By: Brett Encarnacion on 10-22-2019 [facility] Renal Artery Duplex Ordering Physician: Brett Encarnacion Electrical Service Technician: Laura Walsh Interpreting Physician: Luciano Shannon Location: [facility] Indications: Hypertension. Smoking history. Acute Kidney [...] supine position. Images were obtained using a [employer] E9 vascular ultrasound machine. The abdominal aorta, [...] + Kidney le (more content not included)... [employer] Work Phone: Mike, [place] Incoming Cardiology Results From Tia/Mabel - 10/22/2019 3:01 PM EST [facility] Renal Artery Duplex Ordering Physician: Brett Encarnacion Electrical Service Technician: Laura Walsh Interpreting Physician: Luciano Shannon Location: [facility] Indications: Hypertension. Smoking history. Acute Kidney [...] supine position. Images were obtained using a [employer] E9 vascular ultrasound machine. The abdominal aorta, [...] electronically signed by Luciano Shannon 10/22/2019 15:01 [facility] Work Phone: [phone] [id number] By: Akin Irving on 10-22-2019 Cobalamin (Vitamin B12) [Mass/Vol] 959 pg/mL High 239 - 931 pg/mL [facility] Work Phone: [phone] Interpretation and review of laboratory results Abnormal [facility] Work Phone: [phone] Metabolic PanelOrdered By: Delon Jessica on 10-21-2019 Anion gap [Moles/Vol] 16 mmol/L [facility] Work Phone: [phone] Calcium [Mass/Vol] 8.7 mg/dL 8.4 - 10. 4 mg/dL [facility] Work Phone: [phone] Chloride [Moles/Vol] 94 mmol/L Low 98 - 10 7 mmol/L [facility] Work Phone: [phone] CO2 [Moles/Vol] 25 mmol/L 22 - 30 mmol/L [facility] Work Phone: [phone] Creatinine [Mass/Vol] 11.16 mg/dL High 0.52 - 1.25 mg/dL [facility] Work Phone: EGFR IF NonAfrican Bahraini 4.8 mL/min >60 [employer] Work Phone: Comment on above: Source- MDRD [...] mg/dL High 7 - 20 mg/d L [employer] Work Phone: CBC Auto DifferentialOrdered By: Delon Jessica on 10-21-2019 Absolute Baso # 0.1 10*3/uL 0 - 0.2 10*3/uL [employer] Work Phone: Absolute Neut # 6.4 10*3/uL 1.8 - 7 10*3/uL [employer] Work Phone: Basophils/100 WBC (Bld) 0.9 % 0 - 2 % S [facility] Work Phone: Eosinophils (Bld) [#/Vol] 0.2 10*3/uL 0 - 0.5 10*3/uL [facility] Work Phone: 22 Eosinophils/100 WBC (Bld) 2.5 % 1 - 6 % [employer] Work Phone: Erythrocyte distribution width (RBC) [Ratio] 14.8 % High 11.5 - 14.5 % [facility] Work Phone: Granulocytes/100 WBC (Bld) 64.7 % 40 - 80 % [facility] Work Phone: [phone] Hematocrit (Bld) [Volume fraction] 27.6 % Low 40 - 52 % [employer] Work Phone: 1 Hemoglobin (Bld) [Mass/Vol] 9.7 g/dL Low 13 - 18 g/dL [employer] Work Phone: 1 Comment on above: Post Transfusion Interpretation and review of laboratory results Abnormal [employer] Work Phone: 1 Lymphocytes (Bld) [#/Vol] 1.8 10*3/uL 1 - 4.3 10*3/uL [employer] Work Phone: 1 Lymphocytes/100 WBC (Bld) 18.5 % Low 20 - 40 % [employer] Work Phone: 1 MCH (RBC) [Entitic mass] 30.0 pg 26 - 34 pg [employer] Work Phone: 1 MCHC 35.3 % 32 - 36 % [employer] Work Phone: 1 MCV (RBC) [Entitic vol] 84.8 fL 80 - 98 fL S [employer] Work Phone: 1 Monocytes (Bld) [#/Vol] 1.3 10*3/uL High 0 - 0.8 10*3/uL [employer] Work Phone: 1) Monocytes/100 WBC (Bld) 13.4 % High 2 - 10 % [facility] [employer] Work Phone: 1 Platelet mean volume (Bld) [Entitic vol] 7.8 fL 7.4 - 10.4 fL [employer] Work Phone: [phone] Platelets (Bld) [#/Vol] 299 10*3/uL 140 - 440 10*3/uL [employer] Work Phone: [phone] RBC (Bld) [#/Vol] 3.25 10*6/uL Low 4.4 - 5.9 10*6/uL [employer] Work Phone: 1 WBC (Bld) [#/Vol] 9.8 10*3/uL 3.6 - 10.7 10*3/uL [employer] Work Phone: 1 Test Performed by [facility] [employer], [address] [place] [address] [facility] Work Phone: [phone] Calcium, IonizedOrdered By: Delon Jessica on 10-21-2019 Interpretation and review of laboratory results Abnormal [facility] Work Phone: 1 Ionized Ca 4.10 mg/dL Low 4.3 - 5.2 mg/dL [facility] Work Phone: 1 pH (Bld) 7.41 [pH] [facility] Work Phone: 1 Test Performed by [facility], [address] [place] [address] [facility] Work Phone: MagnesiumOrdered By: Delon Jessica on 10-21-2019 Magnesium [Mass/Vol] 1.9 mg/dL 1.6 - 2 .3 mg/dL [employer] Work Phone: 1 No Panel InformationOrdered By: Delon Jessica on 10-21-2019 Interpretation and review of laboratory results Abnormal [facility] Work Phone: 1 Test Performed by [facility], [address] [place] [address] [facility] Work Phone: [phone] PERIPHERAL BLOOD SMEAR, PATH REVIEWOrdered By: Jeana Pedraza on 10-21-2019 Peripheral Smear see below [facility] Work Phone: [phone] Comment on above: See report under Fredy gical Pathology. Test Performed by [place] [address] [facility] Work Phone: PhosphorusOrdered By: Patrick Jessica on 10-21-2019 Phosphate [Mass/Vol] 9.2 mg/dL High 2.5 - 4 .5 mg/dL [facility] Work Phone: [phone] RETROPERITONEAL COMPLETEO rdered By: Randolph Euceda on 10-21-2019 Patient Name: GLENN SNYDER ---Ultrasound--- Exam Date/Time 10/21/2019 15:32:01 EST Exam US Retroperitoneal Complete Ordering Physician [id number] -RANDOLPH EUCEDA Accession Number [id number] CPT4 Codes 33907 () Reason For Exam blossom Report US [...] Phone: Mike, [facility] Incoming Rad[facility] Results From [facility] - 10/21/2019 7:32 PM EST Patient Name: GLENN SNYDER ---Ultrasound--- Exam Date/Time 10/21/2019 15:32:01 EST Exam US Retroperitoneal Complete Ordering Physician RANDOLPH PALAFOX Accession Number [id number] CPT4 Codes 04562 () Reason For Exam blossom Report US [...] Ordering Physician MD ENCARNACION MATTHEW Accession Number [id number] CPT4 Codes 97886 () Reason For Exam vomiting Report ABDOMEN [...] Phone: Mike, [facility] Results From [facility] - 10/21/2019 6:30 PM EST Patient Name: GLENN SNYDER ---Diagnostic Radiology--- Exam Date/Time 10/21/2019 18:02:19 EST Exam CR Abdomen AP Ordering Physician MD ENCARNACION MATTHEW Accession Number [id number] CPT4 Codes 28796 () Reason For Exam vomiting Report ABDOMEN [...] WENDELL Transcribed Date and Time: 10/21/2019 6:30 [employer] Work Phone: 1 ANAOrdered By: Jeana Pedraza on 10-20-2019 CIARAN TITER <1:40 <1:40 {titer} [employer] Work Phone: 1 Test Performed by [email or web address] [address] [employer] Work Phone: 1 Anti-Neutrophilic Cytoplasmi c AntibodyOrdered By: Jeana Pedraza on 10-20-2019 C-ANCA Not detected Not-Detected {titer} [employer] Work Phone: 1 p-ANCA Titer Not detected Not-Detected {titer} [employer] Work Phone: 1 Test Performed by [facility] [place] [address] [employer] Work Phone: 1 Basic Metabolic PanelOrdered By: Brett Encarnacion on 10-20-2019 Anion gap [Moles/Vol] 15 mmol/L [facility] Work Phone: Calcium [Mass/Vol] 8.4 mg/dL 8.4 - 10. 4 mg/dL [facility] Work Phone: Chloride [Moles/Vol] 94 mmol/L Low 98 - 10 7 mmol/L [facility] Work Phone: CO2 [Moles/Vol] 26 mmol/L 22 - 30 mmol/L [facility] Work Phone: Creatinine [Mass/Vol] 9.4 mg/dL High 0.52 - 1.25 mg/dL [facility] Work Phone: 1 EGFR IF NonAfrican Bahraini 5.9 mL/min >60 [facility] Work Phone: Comment on above: Source- MDRD equatio n with creatinine calibration to IDMS(NKDEP) eGFR not recommended for drug dose adjustment GFR/1.73 sq M.predicted among blacks MDRD (S/P/Bld) [Vol rate/Area] 7.1 mL/min/{1.73_m2} >60 [facility] Work Phone: [phone] Glucose [Mass/Vol] 110 mg/dL High 70 - 100 mg/dL [facility] Work Phone: [phone] Interpretation and review of laboratory results Abnormal [facility] Work Phone: [phone] Potassium [Moles/Vol] 4.0 mmol/L 3.5 - 5.1 mmol/L [facility] Work Phone: [phone] Sodium [Moles/Vol] 135 mmol/L 135 - 145 mmol/L [facility] Work Phone: [phone] Urea nitrogen [Mass/Vol] 76 mg/dL High 7 - 20 mg/d L [facility] Work Phone: [phone] Test Performed by [employer] [facility], [address] [place], [place] [address]A Work Phone: [phone] Basic Metabolic PanelOrdered By: Delon Jessica on 10-20-2019 Anion gap [Moles/Vol] 18 mmol/L [facility] Work Phone: [phone] Calcium [Mass/Vol] 7.9 mg/dL Low 8.4 - 10. 4 mg/dL [facility] Work Phone: [phone] Chloride [Moles/Vol] 95 mmol/L Low 98 - 10 7 mmol/L [facility] Work Phone: [phone] CO2 [Moles/Vol] 24 mmol/L 22 - 30 mmol/L [facility] Work Phone: [phone] Creatinine [Mass/Vol] 13.53 mg/dL High 0.52 - 1.25 mg/dL [facility] Work Phone: [phone] EGFR IF NonAfrican Bahraini 3.9 mL/min >60 [facility] Work Phone: [phone] Comment on above: Source- MDRD equatio n with creatinine calibration to IDMS(NKDEP) eGFR not recommended for drug dose adjustment GFR/1.73 sq M.predicted among blacks MDRD (S/P/Bld) [Vol rate/Area] 4.7 mL/min/{1.73_m2} >60 [employer] Work Phone: 1 Glucose [Mass/Vol] 102 mg/dL High 70 - 100 mg/dL [employer] Work Phone: Interpretation and review of laboratory results Abnormal [employer] Work Phone: Potassium [Moles/Vol] 4.7 mmol/L 3.5 - 5.1 mmol/L [employer] Work Phone: Sodium [Moles/Vol] 136 mmol/L 135 - 145 mmol/L [employer] Work Phone: Urea nitrogen [Mass/Vol] 123 mg/dL High 7 - 20 mg/d L [employer] Work Phone: Test Performed by [employer] [facility], [address] [place] [address] [employer] Work Phone: CBC Auto DifferentialOrdered By: Delon Jessica on 10-20-2019 Absolute Baso # 0.0 10*3/uL 0 - 0.2 10*3/uL [employer] Work Phone: Absolute Neut # 6.2 10*3/uL 1.8 - 7 10*3/uL [employer] Work Phone: Basophils/100 WBC (Bld) 0.4 % 0 - 2 % S [facility] Work Phone: Eosinophils (Bld) [#/Vol] 0.1 10*3/uL 0 - 0.5 10*3/uL [facility] Work Phone: Eosinophils/100 WBC (Bld) 1.1 % 1 - 6 % [facility] Work Phone: Erythrocyte distribution width (RBC) [Ratio] 13.4 % 11.5 - 14.5 % [employer] Work Phone: Granulocytes/100 WBC (Bld) 69.5 % 40 - 80 % [employer] Work Phone: Hematocrit (Bld) [Volume fraction] 19.3 % Low 40 - 52 % [facility] Work Phone: Hemoglobin (Bld) [Mass/Vol] 6.6 g/dL Critically low 13 - 18 g/dL [employer] Work Phone: 1 Interpretation and review of laboratory results Abnormal [employer] Work Phone: 1 Lymphocytes (Bld) [#/Vol] 1.6 10*3/uL 1 - 4.3 10*3/uL [employer] Work Phone: 1 Lymphocytes/100 WBC (Bld) 18.3 % Low 20 - 40 % [employer] Work Phone: MCH (RBC) [Entitic mass] 29.4 pg 26 - 34 pg [employer] Work Phone: 1 MCHC 34.1 % 32 - 36 % [employer] Work Phone: 1 MCV (RBC) [Entitic vol] 86.2 fL 80 - 98 fL S [employer] Work Phone: Monocytes (Bld) [#/Vol] 1.0 10*3/uL High 0 - 0.8 10*3/uL [employer] Work Phone: 1 Monocytes/100 WBC (Bld) 10.7 % High 2 - 10 % [facility] [employer] Work Phone: 1 Platelet mean volume (Bld) [Entitic vol] 7.4 fL 7.4 - 10.4 fL [employer] Work Phone: 1 Platelets (Bld) [#/Vol] 267 10*3/uL 140 - 440 10*3/uL [employer] Work Phone: RBC (Bld) [#/Vol] 2.24 10*6/uL Low 4.4 - 5.9 10*6/uL [employer] Work Phone: 1 WBC (Bld) [#/Vol] 9.0 10*3/uL 3.6 - 10.7 10*3/uL [employer] Work Phone: 1 Calcium, IonizedOrdered By: Delon Jessica on 10-20-2019 Interpretation and review of laboratory results Abnormal [employer] Work Phone: [phone] Ionized Ca 3.80 mg/dL Low 4.3 - 5.2 mg/dL [facility] Work Phone: 1 pH (Bld) 7.41 [pH] [employer] Work Phone: 1 Test Performed by [employer] [facility], [address] [place] [address] [employer] Work Phone: Hemoglobin and Hematocrit, B loodOrdered By: Brett Encarnacion on 10-20-2019 Hematocrit (Bld) [Volume fraction] 25.2 % Low 40 - 52 % [facility] Work Phone: Hemoglobin (Bld) [Mass/Vol] 9.0 g/dL Low 13 - 18 g/dL [facility] Work Phone: 1 Interpretation and review of laboratory results Abnormal [employer] Work Phone: 1 Test Performed by [employer], [address] [place] [address] [employer] Work Phone: Hemoglobin and Hematocrit, B loodOrdered By: Delon Jessica on 10-20-2019 Hematocrit (Bld) [Volume fraction] 19.6 % Low 40 - 52 % [facility] Work Phone: Hemoglobin (Bld) [Mass/Vol] 6.7 g/dL Critically low 13 - 18 g/dL [facility] Work Phone: Interpretation and review of laboratory results Abnormal [employer] Work Phone: 1 Test Performed by [employer], [facility] [address] [place] [address] [employer] Work Phone: Laboratory - Blood bankOrder ed By: Delon Jessica on 10-20-2019 ABO and Rh group Nom (Bld) 9500 [facility] Work Phone: MagnesiumOrdered By: Delon Jessica on 10-20-2019 Magnesium [Mass/Vol] 1.8 mg/dL 1.6 - 2 .3 mg/dL [facility] Work Phone: No Panel InformationOrdered By: Delon Jessica on 10-20-2019 Test Performed by [employer] [facility], [facility] [address] [place] [address] [facility] Work Phone: 1 Test Performed by [employer] [facility], [facility] [address] [place] [address] [facility] Work Phone: [phone] PREPARE RBC (CROSSMATCH), 2 UnitsOrdered By: Delon Jessica on 10-20-2019 Blood product unit ID (Dose) [#] [id number] [facility] Work Phone: [phone] Blood product unit ID (Dose) [#] [id number] [facility] Work Phone: Dispense Status Blood Bank transfused [facility] Work Phone: Expiration Date [facility] Work Phone: 1 Product Code Blood Bank [id number] S [facility] Work Phone: [facility] Work Phone: 1 PhosphorusOrdered By: Patrick Jessica on 10-20-2019 Interpretation and review of laboratory results Abnormal [facility] Work Phone: [phone] Phosphate [Mass/Vol] 12.3 mg/dL High 2.5 - 4 .5 mg/dL [facility] Work Phone: 1 RBC MORPHOLOGYOrdered By: Caleb Jessica on 10-20-2019 Hypochromia Slight [facility] Work Phone: [phone] Poikilocytes Slight [facility] Work Phone: [phone] RBC morphology finding Nom (Bld) ABNORMAL [facility] Work Phone: [phone] Surgical PathologyOrdered By : Jeana Pedraza on 10-20-2019 Surgical Pathology Report SEE BELOW [facility] Work Phone: [phone] [facility] PATHOLOGY AND [facility]ORATORY MEDICINE [address] [place] [address] FINAL PERIPHERAL BLOOD REPORT NAME: LILLIAN, GLENN : 1965 53 Y M BILLING NO.: [id number] LOCATION: [id number] [id number] 5 PROCEDURE 10/19/2019 DATE: SURGEON: JEANA PEDRAZA MD RECEIVED DATE: 10/20/2019 ATTENDING BRETT ENCARNACION REPORT DATE: 10/20/2019 : COPIES TO: DIAGNOSIS: NORMOCYTIC ANEMIA WITH ANISOCYTOSIS, INCLUDING SCHISTOCYTES AND MILD AGGLUTINATION, RULE OUT ANEMIA OF CHRONIC INFLAMMATION/RENAL DISEASE, IRON/NUTRITIONAL DEFICIENCIES, COAGULOPATHY AND/OR PARAPROTEINEMIA NO BLASTS OR DYSGRANULOPOIESIS IS SEEN. CYBER SECURITY/CYBER SECURITY Signature> YOHANNES DIAL M.D. CLINICAL INFORMATION: Peripheral [...] characteristics determined by the clinical laboratories of [facility]. They have not been cleared by [...] specimens. DEPARTMENT OF PATHOLOGY AND LABORATORY MEDICINE [place], [place] [address] [facility] Work Phone: 1 Add On Lab TestOrdered By: Michelle Encarnacion on 10-19-2019 Add On Rejected [facility] Work Phone: 1 Test Performed by [employer], [address] [place] [address] [facility] Work Phone: 1 Add On Lab TestOrdered By: Cecil Nieves on 10-19-2019 Add On Accepted [employer] Work Phone: Comment on above: Specimen available & acceptable for analysis. Test Performed by [employer], [address] [place] [address] [facility] Work Phone: 1 Add On Accepted [facility] Work Phone: Comment on above: Specimen available & acceptable for analysis. Test Performed by [employer], [address] Work Phone: 1 Basic Metabolic PanelOrdered By: Brett Encarnacion on 10-19-2019 Anion gap [Moles/Vol] 20 mmol/L [facility] Work Phone: Calcium [Mass/Vol] 8.4 mg/dL 8.4 - 10. 4 mg/dL [facility] Work Phone: Chloride [Moles/Vol] 96 mmol/L Low 98 - 10 7 mmol/L [facility] Work Phone: CO2 [Moles/Vol] 18 mmol/L Low 22 - 30 mmol/L [facility] Work Phone: Creatinine [Mass/Vol] 12.26 mg/dL High 0.52 - 1.25 mg/dL [facility] Work Phone: EGFR IF NonAfrican Bahraini 4.3 mL/min >60 [facility] Work Phone: Comment on above: Source- MDRD equatio n with creatinine calibration to IDMS(NKDEP) eGFR not recommended for drug dose adjustment GFR/1.73 sq M.predicted among blacks MDRD (S/P/Bld) [Vol rate/Area] 5.2 mL/min/{1.73_m2} >60 [facility] Work Phone: Glucose [Mass/Vol] 109 mg/dL High 70 - 100 mg/dL [employer] Work Phone: Interpretation and review of laboratory results Abnormal [facility] Work Phone: Potassium [Moles/Vol] 4.4 mmol/L 3.5 - 5.1 mmol/L [facility] Work Phone: Sodium [Moles/Vol] 134 mmol/L Low 135 - 145 mmol/L [facility] Work Phone: Urea nitrogen [Mass/Vol] 118 mg/dL High 7 - 20 mg/d L [employer] Work Phone: Test Performed by [facility] [employer], [address] [place] [id number] [place], [place] [address]A Work Phone: Blood Occult Stool Screen #1 Ordered By: Callie Nieves on 10-19-2019 Hemoglobin.gastrointesti nal Ql (Stl) Negative Negative NA [facility] Work Phone: Test Performed by [employer], [address] [place] [address] [employer] Work Phone: C3 ComplementOrdered By: Nadia Pedraza on 10-19-2019 C3 Complement 115 mg/dL 85 - 165 mg/dL [facility] Work Phone: C4 ComplementOrdered By: Nadia Pedraza on 10-19-2019 C4 Complement 37 mg/dL 14 - 44 mg/dL [employer] Work Phone: CBC Auto DifferentialOrdered By: Jeana Pedraza on 10-19-2019 Absolute Baso # 0.0 10*3/uL 0 - 0.2 10*3/uL [employer] Work Phone: Absolute Neut # 7.7 10*3/uL High 1.8 - 7 10*3/uL [employer] Work Phone: 22 Basophils/100 WBC (Bld) 0.1 % 0 - 2 % [facility] [employer] Work Phone: 1 Eosinophils (Bld) [#/Vol] 0.0 10*3/uL 0 - 0.5 10*3/uL [facility] Work Phone: 1 Eosinophils/100 WBC (Bld) 0.0 % Low 1 - 6 % [facility] Work Phone: Erythrocyte distribution width (RBC) [Ratio] 13.1 % 11.5 - 14.5 % [employer] Work Phone: 1 Granulocytes/100 WBC (Bld) 93.1 % High 40 - 80 % [facility] Work Phone: Hematocrit (Bld) [Volume fraction] 26.9 % Low 40 - 52 % [facility] Work Phone: Hemoglobin (Bld) [Mass/Vol] 9.1 g/dL Low 13 - 18 g/dL [facility] Work Phone: Interpretation and review of laboratory results Abnormal [facility] Work Phone: Lymphocytes (Bld) [#/Vol] 0.4 10*3/uL Low 1 - 4.3 10*3/uL [facility] Work Phone: Lymphocytes/100 WBC (Bld) 5.1 % Low 20 - 40 % [facility] Work Phone: MCH (RBC) [Entitic mass] 29.2 pg 26 - 34 pg [facility] Work Phone: MCHC 33.8 % 32 - 36 % [facility] Work Phone: MCV (RBC) [Entitic vol] 86.5 fL 80 - 98 fL [facility] [employer] Work Phone: Monocytes (Bld) [#/Vol] 0.1 10*3/uL 0 - 0.8 10*3/uL [employer] Work Phone: Monocytes/100 WBC (Bld) 1.7 % Low 2 - 10 % [employer] Work Phone: Platelet mean volume (Bld) [Entitic vol] 8.0 fL 7.4 - 10.4 fL [employer] Work Phone: Platelets (Bld) [#/Vol] 246 10*3/uL 140 - 440 10*3/uL [employer] Work Phone: RBC (Bld) [#/Vol] 3.11 10*6/uL Low 4.4 - 5.9 10*6/uL [employer] Work Phone: WBC (Bld) [#/Vol] 8.3 10*3/uL 3.6 - 10.7 10*3/uL [employer] Work Phone: Test Performed by [employer], [address] [place], [place] [address] [employer] Work Phone: CT Abdomen Pelvis Wo Contras tOrdered By: Callie Nieves on 10-19-2019 Patient Name: GLENN SNYDER ---CT--- Exam Date/Time 10/19/2019 08:12:[address] Abdomen/Pelvis (No PO, No IV) Ordering Physician DO NIEVES DAVID J Accession Number [id number] CPT4 Codes 72717 (CT Abdomen/Pelvis (No PO, No IV)) Reason [...] bilateral renal atrophy. No urologic calcification. 3. [id number] diverticulosis. No acute diverticulitis. Report Dictated on --- Final --- Dictating Physician: MD BUTCHER ANTHONY J Signed Date and Time: 10/19/2019 8:40 am Signed by: MD BUTCHER ANTHONY J Transcribed Date and Time: 10/19/2019 8:41 [facility] Work Phone: Mike, [facility] Incoming Radiology Results From [facility] - 10/19/2019 8:42 AM EST Patient Name: GLENN SNYDER ---CT--- Exam Date/Time 10/19/2019 08:12:[address] Abdomen/Pelvis (No PO, No IV) Ordering Physician DO NIEVES DAVID J Accession Number [id number] CPT4 Codes 26260 (CT Abdomen/Pelvis (No PO, No IV)) Reason [...] bilateral renal atrophy. No urologic calcification. 3. Ydnf-ns-[id number] diverticulosis. No acute diverticulitis. Report Dictated on --- Final --- Dictating Physician: MD BUTCHER ANTHONY J Signed Date and Time: 10/19/2019 8:40 am Signed by: MD BUTCHER ANTHONY J Transcribed Date and Time: 10/19/2019 8:41 [facility] Work Phone: [phone] Comprehensive Metabolic Pane lOrdered By: Callie Nieves on 10-19-2019 Albumin [Mass/Vol] 3.9 g/dL 3.5 - 5 g/dL [facility] Work Phone: [phone] ALP [Catalytic activity/Vol] 58 U/L 38 - 126 U/L [facility] Work Phone: [phone] ALT [Catalytic activity/Vol] 27 U/L 13 - 69 U/L [facility] Work Phone: Anion gap [Moles/Vol] 22 mmol/L [facility] Work Phone: [phone] AST [Catalytic activity/Vol] 41 U/L 15 - 46 U/L [facility] Work Phone: [phone] Bilirubin [Mass/Vol] 0.5 mg/dL 0.2 - 1 .3 mg/dL [facility] Work Phone: [phone] Calcium [Mass/Vol] 8.0 mg/dL Low 8.4 - 10. 4 mg/dL [facility] Work Phone: [phone] Chloride [Moles/Vol] 106 mmol/L 98 - 10 7 mmol/L [facility] Work Phone: 1 CO2 [Moles/Vol] 8 mmol/L Low 22 - 30 mmol/L [facility] Work Phone: 1 Creatinine [Mass/Vol] 17.04 mg/dL High 0.52 - 1.25 mg/dL [facility] Work Phone: EGFR IF NonAfrican Bahraini 3.0 mL/min >60 [facility] Work Phone: 1 Comment on above: Source- MDRD equatio n with creatinine calibration to IDMS(NKDEP) eGFR not recommended for drug dose adjustment GFR/1.73 sq M.predicted among blacks MDRD (S/P/Bld) [Vol rate/Area] 3.6 mL/min/{1.73_m2} >60 [facility] Work Phone: 1 Glucose [Mass/Vol] 93 mg/dL 70 - 100 mg/dL [facility] Work Phone: Interpretation and review of laboratory results Abnormal [facility] Work Phone: 1 Potassium [Moles/Vol] 6.6 mmol/L Critically high 3.5 - 5.1 mmol/L [facility] Work Phone: Protein [Mass/Vol] 7.1 g/dL 6.3 - 8.2 g/dL [facility] Work Phone: Sodium [Moles/Vol] 136 mmol/L 135 - 145 mmol/L [facility] Work Phone: Urea nitrogen [Mass/Vol] 179 mg/dL High 7 - 20 mg/d L [facility] Work Phone: Test Performed by [employer], [address] [place] [address] [facility] Work Phone: Albumin [Mass/Vol] 4.3 g/dL 3.5 - 5 g/dL [facility] Work Phone: ALP [Catalytic activity/Vol] 68 U/L 38 - 126 U/L [facility] Work Phone: [phone] [Catalytic activity/Vol] 31 U/L 13 - 69 U/L [facility] Work Phone: [phone] Anion gap [Moles/Vol] 22 mmol/L [facility] Work Phone: [phone] AST [Catalytic activity/Vol] 38 U/L 15 - 46 U/L [facility] Work Phone: [phone] Bilirubin [Mass/Vol] 0.3 mg/dL 0.2 - 1 .3 mg/dL [facility] Work Phone: [phone] Calcium [Mass/Vol] 8.1 mg/dL Low 8.4 - 10. 4 mg/dL [facility] Work Phone: [phone] Chloride [Moles/Vol] 104 mmol/L 98 - 10 7 mmol/L [facility] Work Phone: [phone] CO2 [Moles/Vol] 10 mmol/L Low 22 - 30 mmol/L [facility] Work Phone: [phone] Creatinine [Mass/Vol] 17.95 mg/dL High 0.52 - 1.25 mg/dL [facility] Work Phone: [phone] EGFR IF NonAfrican Bahraini 2.8 mL/min >60 [facility] Work Phone: [phone] Comment on above: Source- MDRD equatio n with creatinine calibration to IDMS(NKDEP) eGFR not recommended for drug dose adjustment GFR/1.73 sq M.predicted among blacks MDRD (S/P/Bld) [Vol rate/Area] 3.4 mL/min/{1.73_m2} >60 [facility] Work Phone: [phone] Glucose [Mass/Vol] 101 mg/dL High 70 - 100 mg/dL [facility] Work Phone: [phone] Interpretation and review of laboratory results Abnormal [facility] Work Phone: [phone] Potassium [Moles/Vol] 7.3 mmol/L Critically high 3.5 - 5.1 mmol/L [facility] Work Phone: [phone] Protein [Mass/Vol] 7.9 g/dL 6.3 - 8.2 g/dL [facility] Work Phone: [phone] Sodium [Moles/Vol] 136 mmol/L 135 - 145 mmol/L [employer] Work Phone: [phone] Urea nitrogen [Mass/Vol] 179 mg/dL High 7 - 20 mg/d L [employer] Work Phone: [phone] Test Performed by [facility], [address] 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 : 1965 Requested By: CALLIE NIEVES Order Number: [id number] Reading MD: Alessia Tapia Measurements Intervals [place] Rate: 97 P: 78 VT: 128 QRS: 49 QRSD: 106 T: 83 QT: 376 QTc: 478 Interpretive Statements SINUS RHYTHM LEFT ATRIAL ABNORMALITY INCOMPLETE RIGHT BUNDLE BRANCH BLOCK LEFT VENTRICULAR HYPERTROPHY BORDERLINE PROLONGED QT INTERVAL No previous ECG available for comparison Electronically Signed On 10-19-2019 8:49:06 EST by Alessia Any.DOjevon [employer] Work Phone: [phone] Mike, [facility] Incoming Cardiology Results From [facility] - 10/19/2019 8:50 AM EST [facility] Test Date: 2019-10-19 Pat Name: Glenn Snyder Department: 2AED Room: 19 Gender: M Graduate Recruiter: SHAWN : 1965 Requested By: CALLIE NIEVES Order Number: [id number] Reading MD: Alessia Tapia Measurements Intervals [place] Rate: 97 P: 78 VT: 128 QRS: 49 QRSD: 106 T: 83 QT: 376 QTc: 478 Interpretive Statements SINUS RHYTHM LEFT ATRIAL ABNORMALITY INCOMPLETE RIGHT BUNDLE BRANCH BLOCK LEFT VENTRICULAR HYPERTROPHY BORDERLINE PROLONGED QT INTERVAL No previous ECG available for comparison Electronically Signed On 10-19-2019 8:49:06 EST by Alessia Tapia [employer] Work Phone: [phone] HEPATITIS B SURFACE ANTIGENO rdered By: Jeana Pedraza on 10-19-2019 Hepatitis B Surface Ag Not detected Not-D etected NA [employer] Work Phone: [phone] HIV ScreenOrdered By: Adan Encarnacion on 10-19-2019 HIV 1+2 [id number] AG, EIA Non-Reactive Nonreactive NA [employer] Work Phone: Comment on above: Results obtained [...] # 0.1 10*3/uL 0 - 0.2 10*3/uL [employer] Work Phone: Absolute Neut # 11.3 10*3/uL High 1.8 - 7 10*3/uL [employer] Work Phone: Basophils/100 WBC (Bld) 0.6 % 0 - 2 % [facility] Work Phone: Eosinophils (Bld) [#/Vol] 0.2 10*3/uL 0 - 0.5 10*3/uL [employer] Work Phone: Eosinophils/100 WBC (Bld) 1.2 % 1 - 6 % [employer] Work Phone: Erythrocyte distribution width (RBC) [Ratio] 13.4 % 11.5 - 14.5 % [employer] Work Phone: Granulocytes/100 WBC (Bld) 80.5 % High 40 - 80 % [employer] Work Phone: Hematocrit (Bld) [Volume fraction] 23.2 % Low 40 - 52 % [employer] Work Phone: Hemoglobin (Bld) [Mass/Vol] 7.8 g/dL Low 13 - 18 g/dL [employer] Work Phone: Interpretation and review of laboratory results Abnormal [employer] Work Phone: Lymphocytes (Bld) [#/Vol] 1.4 10*3/uL 1 - 4.3 10*3/uL [facility] Work Phone: 1 Lymphocytes/100 WBC (Bld) 9.8 % Low 20 - 40 % [employer] Work Phone: 1 MCH (RBC) [Entitic mass] 29.4 pg 26 - 34 pg [employer] Work Phone: MCHC 33.6 % 32 - 36 % [employer] Work Phone: MCV (RBC) [Entitic vol] 87.4 fL 80 - 98 fL S [employer] Work Phone: Monocytes (Bld) [#/Vol] 1.1 10*3/uL High 0 - 0.8 10*3/uL [employer] Work Phone: 1 Monocytes/100 WBC (Bld) 7.9 % 2 - 10 % S [employer] Work Phone: Platelet mean volume (Bld) [Entitic vol] 7.6 fL 7.4 - 10.4 fL [employer] Work Phone: Platelets (Bld) [#/Vol] 293 10*3/uL 140 - 440 10*3/uL [employer] Work Phone: RBC (Bld) [#/Vol] 2.66 10*6/uL Low 4.4 - 5.9 10*6/uL [employer] Work Phone: WBC (Bld) [#/Vol] 14.1 10*3/uL High 3.6 - 10.7 10*3/uL [employer] Work Phone: Test Performed by [employer] [facility], [address] [place] [id number] [employer] Work Phone: Hepatitis C AntibodyOrdered By: Jeana Pedraza on 10-19-2019 Hepatitis C Ab Not detected Not-Detected NA [employer] Work Phone: Comment on above: Patients with DETECT ED Hepatitis C Ab results should have a new specimen submitted for supplemental testing with a Hepatitis C Quantitative RNA assay (viral load), if clinically indicated. MagnesiumOrdered By: Callie shaw on 10-19-2019 Magnesium [Mass/Vol] 2.1 mg/dL 1.6 - 2 .3 mg/dL [employer] Work Phone: 1 [facility], [address] [place], [place] [address] [facility] Work Phone: No Panel InformationOrdered By: Brett Encarnacion on 10-19-2019 Test Performed by [facility], [address] [place] [address] [facility] Work Phone: 1 No Panel InformationOrdered By: Jeana Pedraza on 10-19-2019 Test Performed by [facility], [address] [place], [place] [address] [employer] Work Phone: PROCALCITONINOrdered By: Eldon Encarnacion on 10-19-2019 Interpretation See Below [employer] Work Phone: Comment on above: PCT <0.50 = Low risk of severe sepsis and/or septic shock. PCT >2.00 = High risk of severe sepsis and/or septic shock. Interpretation and review of laboratory results Abnormal [employer] Work Phone: Procalcitonin 0.74 ng/mL Abnormal <0.10 [employer] Work Phone: PhosphorusOrdered By: Callie Nieves on 10-19-2019 Interpretation and review of laboratory results Abnormal [employer] Work Phone: Phosphate [Mass/Vol] 14.8 mg/dL High 2.5 - 4 .5 mg/dL [employer] Work Phone: 1 Test Performed by [facility], [address] [place], [place] [address] [employer] Work Phone: TYPE AND SCREENOrdered By: Cecil Nieves on 10-19-2019 ABO Group[employer] O [facility] Work Phone: Rh Type Negative [employer] Work Phone: Comment on above: Test Performed by [facility] [employer], [address] [place], [place] [address] Test Performed by [facility], [address] [place], [place] [address] [employer] Work Phone: TroponinOrdered By: Callie garcia on 10-19-2019 Interpretation and review of laboratory results Abnormal [facility] Work Phone: 1 Troponin I.cardiac [Mass/Vol] 0.075 ng/mL High 0 - 0.034 ng/mL [facility] Work Phone: 1 Comment on above: . Test Performed by [facility], [address] [place], [place] [address] [facility] Work Phone: 1 UrinalysisOrdered By: Callie Nieves on 10-19-2019 AMORPHOUS CRYSTAL Few Negative /[HPF] [employer] Work Phone: 1 Appearance (U) Clear Clear NA [employer] Work Phone: 1 Bacteria, UA Few Negative /[HPF] [facility] Work Phone: 1 Bilirubin Urine Negative Negative mg/dL [facility] Work Phone: 1 Color (U) Colorless Lt. Yellow NA [facility] Work Phone: 1 Glucose, Ur 200 mg/dL Normal (<70) [facility] Work Phone: 1 Ketones Ql (U) Negative Negative mg/dL [facility] Work Phone: 1 LEUKOCYTES, UA Negative Negative Juliana/uL [facility] Work Phone: 1 Mucous Threads Few Negative /[LPF] [facility] Work Phone: 1 Nitrite, Urine Negative Negative NA [facility] Work Phone: 1 Occult Blood,Urine 0.2 mg/dL Negative [facility] Work Phone: 1 pH (U) 6.0 [pH] [facility] Work Phone: 1 Protein (U) [Mass/Vol] 200 mg/dL Negative [employer] Work Phone: 1 RBC, UA 6-10 0 - 2 /[HPF] [facility] Work Phone: 1 Specific [place], Urine 1.009 S [facility] Work Phone: 1 22 Squam Epithel, UA 0-2 3 - 5 /[HPF] [facility] Work Phone: 1 Urobilinogen, Urine Normal Normal ( 0-1) mg/dL [facility] Work Phone: WBC, UA 6-10 0 - 5 /[HPF] [facility] Work Phone: Test Performed by [facility], [address] [place], [place] [address] [facility] Work Phone: XR CHEST PORTABLEOrdered By: Brett Encarnacion on 10-19-2019 Patient Name: GLENN SNYDER ---Diagnostic Radiology--- Exam Date/Time 10/19/2019 12:11:06 EST Exam CR Chest Portable Ordering Physician MD ENCARNACION MATTHEW Accession Number [id number] CPT4 Codes 49051 () Reason For Exam line placement/vascath Report [...] RISA Transcribed Date and Time: 10/19/2019 12:56 [facility] Work Phone: Mike, [facility] Incoming Radiology Results From [facility] - 10/19/2019 12:57 PM EST Patient Name: GLENN SNYDER ---Diagnostic Radiology--- Exam Date/Time 10/19/2019 12:11:06 EST Exam CR Chest Portable Ordering Physician MD ENCARNACION MATTHEW Accession Number [id number] CPT4 Codes 88240 () Reason For Exam line placement/vascath Report [...] RISA Transcribed Date and Time: 10/19/2019 12:56 [facility] Work Phone: Vital Signs Date Time Vital Sign Value Performing Clinician Angelia sweet 04-17-2025 09:36-0400 Body height 177.8 cm Keiry Solares MD Work Phone: [facility] 04-17-2025 09:36-0400 Body mass index (BMI) [Ratio] 21.81 kg/m2 Keiry Solares MD Work Phone: [facility] 04-17-2025 09:36-0400 Body temperature 98.01 [degF] Keiry Solares MD Work Phone: [facility] 04-17-2025 09:36-0400 Body weight 68.95 kg Keiry Solares MD Work Phone: [facility] 04-17-2025 09:36-0400 Diastolic blood pressure 88 mm[Hg] Keiry Solares MD Work Phone: [facility] 04-17-2025 09:36-0400 Respiratory rate 18 /min Keiry Solares MD Work Phone: [facility] 04-17-2025 09:36-0400 Systolic blood pressure 113 mm[Hg] Keiry Solares MD Work Phone: [facility] 04-17-2025 09:29-0400 Heart rate 81 /min Keiry Solares MD Work Phone: [facility] 04-17-2025 09:29-0400 SaO2% (BldA) [Mass fraction] 100 % Keiry Solares MD Work Phone: [facility] 04-09-2025 15:00-0400 Body temperature 98.29 [degF] Leilani Aba Work Phone: [facility] 04-09-2025 15:00-0400 Diastolic blood pressure 64 mm[Hg] Leilani Aba Work Phone: [facility] 04-09-2025 15:00-0400 Heart rate 90 /min Leilani Aba Work Phone: [facility] 04-09-2025 15:00-0400 Respiratory rate 16 /min Leilani Aba Work Phone: [facility] 04-09-2025 15:00-0400 SaO2% (BldA) [Mass fraction] 98 % Leilani Aba Work Phone: [facility] 04-09-2025 15:00-0400 Systolic blood pressure 117 mm[Hg] Leilani Aba Work Phone: [facility] 04-09-2025 11:58-0400 Body height 177.8 cm Leilani Aba Work Phone: [facility] 04-09-2025 11:58-0400 Body mass index (BMI) [Ratio] 21.52 kg/m2 Leilani Aba Work Phone: [facility] 04-09-2025 11:58-0400 Body weight 68.04 kg Leilani Aba Work Phone: [facility] 04-05-2025 20:00-0400 Diastolic blood pressure 89 mm[Hg] Dieter Villegas MD Work Phone: [facility] 04-05-2025 20:00-0400 Heart rate 91 /min Dieter Villegas MD Work Phone: [facility] 04-05-2025 20:00-0400 Respiratory rate 16 /min Dieter Villegas MD Work Phone: [facility] 04-05-2025 20:00-0400 SaO2% (BldA) [Mass fraction] 97 % Dieter Villegas MD Work Phone: [facility] 04-05-2025 20:00-0400 Systolic blood pressure 148 mm[Hg] Dieter Villegas MD Work Phone: [facility] 04-05-2025 17:15-0400 Body temperature 97.9 [degF] Dieter Villegas MD Work Phone: [facility] 04-05-2025 10:15-0400 Body height 177.8 cm Dieter Villegas MD Work Phone: [facility] 04-05-2025 10:15-0400 Body mass index (BMI) [Ratio] 21.09 kg/m2 Dieter Villegas MD Work Phone: [facility] 04-05-2025 10:15-0400 Body weight 66.68 kg Dieter Villegas MD Work Phone: [facility] 03-21-2025 16:02-0400 Body temperature 98.29 [degF] Keiry Solares MD Work Phone: [facility] 03-21-2025 16:02-0400 Diastolic blood pressure 85 mm[Hg] Keiry Solares MD Work Phone: [facility] 03-21-2025 16:02-0400 Heart rate 71 /min Keiry Solares MD Work Phone: [facility] 03-21-2025 16:02-0400 Respiratory rate 18 /min Keiry Solares MD Work Phone: [facility] 03-21-2025 16:02-0400 SaO2% (BldA) [Mass fraction] 94 % Keiry Solares MD Work Phone: [facility] 03-21-2025 16:02-0400 Systolic blood pressure 147 mm[Hg] Keiry Solares MD Work Phone: [facility] 03-21-2025 03:15-0400 Body mass index (BMI) [Ratio] 22.24 kg/m2 Keiry Solares MD Work Phone: [employer] 03-21-2025 03:15-0400 Body weight 70.31 kg Keiry Solares MD Work Phone: [employer] [facility] 03-14-2025 16:17-0400 Body height 177.8 cm Keiry Solares MD Work Phone: [employer] [facility] 03-05-2025 14:03-0400 Body temperature 97 [degF] Mejgon Cuca DO Work Phone: [employer] [facility] 03-05-2025 14:03-0400 Diastolic blood pressure 83 mm[Hg] Mejgon Cuca DO Work Phone: [employer] 03-05-2025 14:03-0400 Heart rate 78 /min Mejgon Cuca DO Work Phone: [employer] 03-05-2025 14:03-0400 Respiratory rate 16 /min Mejgon Cuca DO Work Phone: [employer] 03-05-2025 14:03-0400 SaO2% (BldA) [Mass fraction] 100 % Mejgon Cuca DO Work Phone: [employer] 03-05-2025 14:03-0400 Systolic blood pressure 137 mm[Hg] Mejgon Cuca DO Work Phone: [employer] 02-23-2025 14:13-0400 Body height 177.8 cm Mejgon Cuca DO Work Phone: [employer] 02-23-2025 14:13-0400 Body mass index (BMI) [Ratio] 19.23 kg/m2 Mejgon Cuca DO Work Phone: [employer] 02-23-2025 14:13-0400 Body weight 60.78 kg Mejgon Cuca DO Work Phone: [employer] 02-14-2025 10:30-0400 Body height 177.8 cm Mikala Day PA-C Work Phone: [employer] 05-21-2025 10:30-0400 Body mass index (BMI) [Ratio] 18.65 kg/m2 Mikala JO-C Work Phone: [employer] [facility] 02-14-2025 10:30-0400 Body temperature 96.8 [degF] Mikala Day PA-C Work Phone: [employer] [facility] 02-14-2025 10:30-0400 Body weight 58.97 kg Mikala JO-C Work Phone: [facility] 02-14-2025 10:30-0400 Diastolic blood pressure 72 mm[Hg] Mikala JO-C Work Phone: [employer] [facility] 02-14-2025 10:30-0400 Heart rate 89 /min Mikala JO-C Work Phone: [employer] [facility] 02-14-2025 10:30-0400 SaO2% (BldA) [Mass fraction] 98 % Mikala JO-Walter Work Phone: [facility] 02-14-2025 10:30-0400 Systolic blood pressure 138 mm[Hg] Mikala JO-Walter Work Phone: [employer] [facility] 02-01-2025 15:02-0400 Body temperature 96.69 [degF] Lazaro Rojo MD Work Phone: [employer] [facility] 02-01-2025 15:02-0400 Diastolic blood pressure 60 mm[Hg] Lazaro Rojo MD Work Phone: [employer] [facility] 02-01-2025 15:02-0400 Heart rate 81 /min Lazaro Rojo MD Work Phone: [employer] [facility] 02-01-2025 15:02-0400 Respiratory rate 16 /min Lazaro Rojo MD Work Phone: [employer] [facility] 02-01-2025 15:02-0400 SaO2% (BldA) [Mass fraction] 98 % Lazaro Rojo MD Work Phone: [employer] [facility] 02-01-2025 15:02-0400 Systolic blood pressure 118 mm[Hg] Lazaro Rojo MD Work Phone: [facility] 02-01-2025 05:36-0400 Body mass index (BMI) [Ratio] 14.58 kg/m2 Lazaro Rojo MD Work Phone: [facility] 02-01-2025 05:36-0400 Body weight 46.1 kg Lazaro Rojo MD Work Phone: [facility] 01-30-2025 10:02-0400 Body height 177.8 cm Lazaro Rojo MD Work Phone: [facility] 08-28-2024 15:33-0500 Body height 177.8 cm Jr Shah MD Work Phone: [facility] 08-28-2024 15:33-0500 Body mass index (BMI) [Ratio] 29.56 kg/m2 Jr Shah MD Work Phone: [facility] 08-28-2024 15:33-0500 Body weight 93.44 kg Jr Shah MD Work Phone: [facility] 08-28-2024 15:33-0500 Diastolic blood pressure 80 mm[Hg] Jr Shah MD Work Phone: [facility] 08-28-2024 15:33-0500 Heart rate 75 /min Jr Shah MD Work Phone: [facility] 08-28-2024 15:33-0500 Systolic blood pressure 130 mm[Hg] Jr Shah MD Work Phone: [facility] 11-12-2023 14:16-0500 Diastolic blood pressure 84 mm[Hg] Quiana Contreras PASSENGER FLAGMAN - ALCOHOL STILL OPERATOR Work Phone: [facility] 11-12-2023 14:16-0500 Systolic blood pressure 138 mm[Hg] Quiana Contreras PASSENGER FLAGMAN - ALCOHOL STILL OPERATOR Work Phone: [facility] 11-12-2023 13:41-0500 Body height 177.8 cm Quiana Contreras PASSENGER FLAGMAN - ALCOHOL STILL OPERATOR Work Phone: [employer] [facility] 11-12-2023 13:41-0500 Body mass index (BMI) [Ratio] 29.84 kg/m2 Quiana Contreras APRN - ALCOHOL STILL OPERATOR Work Phone: [employer] [facility] 11-12-2023 13:41-0500 Body weight 94.35 kg Quiana Contreras APRN - ALCOHOL STILL OPERATOR Work Phone: [employer] [facility] 11-12-2023 13:41-0500 Heart rate 85 /min Quiana Contreras APRN - ALCOHOL STILL OPERATOR Work Phone: [employer] [facility] 08-17-2023 13:12-0500 Diastolic blood pressure 67 mm[Hg] Dangelo Landworth DO Work Phone: [employer] [facility] 08-17-2023 13:12-0500 Heart rate 84 /min Dionicion Haywood DO Work Phone: [employer] [facility] 08-17-2023 13:12-0500 Respiratory rate 18 /min Dionicion Ozzie DO Work Phone: [employer] [facility] 08-17-2023 13:12-0500 SaO2% (BldA) [Mass fraction] 98 % Dionicion Ozzie DO Work Phone: [employer] [facility] 08-17-2023 13:12-0500 Systolic blood pressure 94 mm[Hg] Dionicion Haywood DO Work Phone: [employer] [facility] 08-17-2023 09:13-0500 Body height 177.8 cm Dionicion Ozzie DO Work Phone: [employer] [facility] 08-17-2023 09:13-0500 Body mass index (BMI) [Ratio] 28.7 kg/m2 Gurinderlyn Ozzie DO Work Phone: [employer] [facility] 08-17-2023 09:13-0500 Body weight 90.72 kg Dionicion Ozzie DO Work Phone: [employer] [facility] 08-17-2023 08:50-0500 Body temperature 99 [degF] Gurinderserenen Ozzie DO Work Phone: [facility] 05-01-2023 20:36-0400 Diastolic blood pressure 85 mm[Hg] Jese Frank MD Work Phone: [facility] 05-01-2023 20:36-0400 Heart rate 74 /min Jese Frank MD Work Phone: [facility] 05-01-2023 20:36-0400 Respiratory rate 20 /min Jese Frank MD Work Phone: [facility] 05-01-2023 20:36-0400 SaO2% (BldA) [Mass fraction] 95 % Jese Frank MD Work Phone: [facility] 05-01-2023 20:36-0400 Systolic blood pressure 135 mm[Hg] Jese Frank MD Work Phone: [facility] 05-01-2023 20:08-0400 Body height 177.8 cm Jese Frank MD Work Phone: [facility] 05-01-2023 20:08-0400 Body mass index (BMI) [Ratio] 28.7 kg/m2 Jese Frank MD Work Phone: [facility] 05-01-2023 20:08-0400 Body temperature 98.2 [degF] Jese Frank MD Work Phone: [facility] 05-01-2023 20:08-0400 Body weight 90.72 kg Jese Frank MD Work Phone: [facility] 12-25-2021 15:50-0400 Body height 177.8 cm Rudy Painter MD Work Phone: [facility] 12-25-2021 15:50-0400 Body weight 99.79 kg Rudy Painter MD Work Phone: [facility] 12-25-2021 15:50-0400 Diastolic blood pressure 72 mm[Hg] Rudy Painter MD Work Phone: [facility] 12-25-2021 15:50-0400 Heart rate 70 /min Rudy Painter MD Work Phone: [facility] 12-25-2021 15:50-0400 Systolic blood pressure 130 mm[Hg] Rudy Painter MD Work Phone: [facility] 09-15-2021 11:20-0500 Body temperature 97.59 [degF] Cindy Patel MD Work Phone: [facility] 09-15-2021 11:20-0500 Diastolic blood pressure 83 mm[Hg] Cindy Patel MD Work Phone: [facility] 09-15-2021 11:20-0500 Heart rate 85 /min Cindy Patel MD Work Phone: [facility] 09-15-2021 11:20-0500 Respiratory rate 20 /min Cindy Patel MD Work Phone: [facility] 09-15-2021 11:20-0500 SaO2% (BldA) [Mass fraction] 98 % Cindy Patel MD Work Phone: [facility] 09-15-2021 11:20-0500 Systolic blood pressure 144 mm[Hg] Cindy Patel MD Work Phone: [facility] 09-15-2021 09:19-0500 Body height 177.8 cm Cindy Patel MD Work Phone: [facility] 09-15-2021 09:19-0500 Body mass index (BMI) [Ratio] 30.05 kg/m2 Cindy Patel MD Work Phone: [facility] 09-15-2021 09:19-0500 Body weight 94.98 kg Cindy Patel MD Work Phone: [facility] 10-27-2019 20:02-0500 Body temperature 97.2 [degF] Callie Nieves DO Work Phone: [facility] Work Phone: 10-27-2019 20:02-0500 Diastolic blood pressure 77 mm[Hg] Callie Gomezh DO Work Phone: [employer] Work Phone: 10-27-2019 20:02-0500 Heart rate 107 /min Callie Synoste Oy Work Phone: [employer] Work Phone: 10-27-2019 20:02-0500 Respiratory rate 16 /min Callie Synoste Oy Work Phone: [employer] Work Phone: 10-27-2019 20:02-0500 SaO2% (BldA) [Mass fraction] 96 % Versa Work Phone: [employer] Work Phone: 10-27-2019 20:02-0500 Systolic blood pressure 112 mm[Hg] Versa Work Phone: [employer] Work Phone: 10-27-2019 14:10-0500 Body mass index (BMI) [Ratio] 27.08 kg/m2 Callie Synoste Oy Work Phone: [employer] Work Phone: 10-27-2019 14:10-0500 Body weight 85.6 kg Callie Synoste Oy Work Phone: [employer] Work Phone: 10-19-2019 12:45-0500 Body height 177.8 cm Callie Synoste Oy Work Phone: [employer] Work Phone: Encounters Encounter Date Encounter Type Care Provider Facility Start: 04-23-2025 ambulatory Jayesh Stubbs OLS Faci lity:[facility] Start: 04-20-2025 ambulatory Jayesh Stubbs OLS Faci lity:[facility] Start: 04-19-2025 ambulatory Kayley ALBA Facility:[facility] Start: 04-18-2025 ambulatory Jayesh Stubbs OLS Faci lity:[facility] Start: 04-17-2025 End: 04-17-2025 Emergency department patient visit Keiry Solares MD Work Phone: [facility] Comment on above: Supratherapeutic INR (Primary Dx); Necrosis (HCC) Start: [facility] Start: [facility] Start: 04-12-2025 End: 04-12-2025 Subsequent hospital visit by physician [facility] Exam Room [address] Comment on above: Hemoptysis Start: 04-12-2025 End: 04-12-2025 [facility] Start: 04-11-2025 End: 04-11-2025 Telephone encounter Piedad Genao DPM Work Phone: [facility] Orthopedics and Sports Medicine [facility] Comment on above: Appointment Start: 04-09-2025 End: 04-09-2025 [facility] Comment on above: ESRD on hemodialysis (CMS/HCC) (HCC) (Primary Dx); Contusion of dorsum of right hand Start: 04-09-2025 [facility] Start: 04-05-2025 End: 04-05-2025 Telephone encounter Sophia Forrester CNP Work Phone: [facility] Comment on above: Cancelled Appointmen t Start: 04-05-2025 End: 04-05-2025 Emergency department patient visit Dieter Villegas MD Work Phone: [facility] ED Comment on above: Tachycardia (Primary Dx); Dialysis patient (HCC) Start: 04-05-2025 [facility] Start: 04-02-2025 [facility] Start: 03-29-2025 ambulatory [facility] jena O[facility] Facility:[facility] Start: 03-26-2025 End: 03-28-2025 Telephone encounter Sophia Forrester CNP Work Phone: [facility] Neuroscience [facility] Comment on above: Appointment Start: 03-26-2025 ambulatory Jayesh Clarahoward ALBA Faci lity:[facility] Start: 03-22-2025 ambulatory Kayley ALBA Facility:[facility] Start: 03-22-2025 Registered Referred Kayley ortiz MD -[facility] Start: 03-13-2025 End: 03-21-2025 Evaluation and management of inpatient Keiry Solares MD Work Phone: [facility] Cardiac Progressive Care Unit PCU 5W Comment on above: SOB (shortness of br eath) (Primary Dx); 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, 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) Start: 03-12-2025 ambulatory Jayesh Sortoi lity:[facility] Start: 03-12-2025 Registered Referred Jayesh Clarajennifer Vamo Start: 03-09-2025 ambulatory Jayesh Stubbs PARTH Faci lity:[facility] Start: 03-09-2025 Registered Referred Jayesh Evelyne Vamo Start: 03-08-2025 End: 03-08-2025 Orders Only Christelle Eckert RN [facility] [place] Comment on above: Tracheostomy depende nce (HCC) (Primary Dx); Tracheostomy complication, unspecified complication type (HCC); Acute respiratory failure with hypoxia (HCC) [J96.01] Start: 03-08-2025 Registered Referred Kayley ortiz MD -[facility] Start: 02-23-2025 End: 02-23-2025 Telephone encounter Elly Jett MD Work Phone: [facility] Critical Care Comment on above: Appointment Start: 02-21-2025 End: 02-25-2025 Telephone encounter Hussain Quintana MD Work Phone: [facility] Infectious Disease - [place] Comment on above: Other Start: 02-20-2025 End: 03-05-2025 Evaluation and management of inpatient Palak Thurman DO Work Phone: [facility] Trauma Neuro Progressive Care Unit PCU 3W Start: 02-20-2025 End: 02-20-2025 ambulatory Kayley Melendrez MD [facility] Work Phone: Start: 02-20-2025 End: 02-20-2025 Departed Referred [facility] [employer] Start: 02-20-2025 Registered Referred Kayley [employer] Start: 02-20-2025 End: 02-20-2025 ambulatory Kayley ALBA Facility:[facility] Start: 02-15-2025 End: 02-15-2025 ambulatory Kayley Melendrez MD [facility] Work Phone: Start: 02-15-2025 End: 02-15-2025 Departed Referred Kayley Shen [employer] Start: 02-15-2025 Registered Referred [facility] [employer] Start: 02-14-2025 End: 02-14-2025 Office outpatient visit 25 minutes Mikala Day PA-C Work Phone: [facility] Infectious Disease - [place] Comment on above: Sacral osteomyelitis (CMS/HCC) (HCC) (Primary Dx); ESRD on hemodialysis (CMS/HCC) (HCC); 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, 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); Decubitus ulcer of sacral region, unstageable (HCC); long term care pharmacist (current) use of antibiotics Start: 02-14-2025 End: 02-15-2025 ambulatory [facility] Start: 02-13-2025 ambulatory Kayley ALBA Facility:[facility] Start: 02-13-2025 Registered Referred Kayley Shen [employer] Start: 02-12-2025 End: 02-12-2025 ambulatory [facility]ley [facility] [employer] Start: 02-12-2025 End: 02-12-2025 Departed Referred Kayley Meelndrez MD -[employer] Start: 02-12-2025 Registered Referred Kayley ortiz MD -[employer] Start: 02-12-2025 End: 02-12-2025 ambulatory Kayley ALBA Facility:[facility] Start: 02-08-2025 End: 02-08-2025 ambulatory Kayley Melendrez MD -[employer] Start: 02-08-2025 End: 02-08-2025 Departed Referred Kayley Melendrez MD -[employer] Start: 02-08-2025 Registered Referred Kayley ortiz MD -[employer] Start: 02-07-2025 End: 02-08-2025 ambulatory Kayley LABA [facility] Work Phone: Start: 02-07-2025 End: 02-07-2025 Departed Referred Jayesh Stubbs -[employer] Start: 02-07-2025 Registered Referred Jayesh Stubbs - [employer] Start: 02-07-2025 End: 02-07-2025 ambulatory Jayesh ALBA Facility:[facility] Start: 02-05-2025 End: 02-05-2025 ambulatory Kayley Melendrez MD [facility] Work Phone: Start: 02-05-2025 End: 02-05-2025 Departed Referred Kayley Melendrez MD -[employer] Start: 02-05-2025 End: 02-05-2025 ambulatory Kayley ALBA Facility:[facility] Start: 02-02-2025 End: 02-02-2025 Anticoagulant drug monitoring Adalberto SanchezD [facility] Pharmacy Comment on above: S/P AVR (Primary Dx) Start: 01-29-2025 End: 02-05-2025 Telephone encounter Ad[facility] Comment on above: Anticoagulation Start: 01-19-2025 End: 02-01-2025 Evaluation and management of inpatient Lazaro Rojo MD Work Phone: [facility] Cardiac Vascular Progressive Care Unit PCC 1C Start: 01-18-2025 End: 01-18-2025 ambulatory Jefferson Nathan MD Work Phone: [facility] Comment on above: Acute respiratory fa ilure with hypoxia (HCC) [J96.01] (Primary Dx); RSV (acute bronchiolitis due to respiratory syncytial virus); Tracheostomy dependence (HCC); Leg DVT (deep venous thromboembolism), acute, left (HCC); Pulmonary embolism, unspecified chronicity, unspecified pulmonary embolism type, unspecified whether acute cor pulmonale present (HCC); S/P AVR Start: 01-17-2025 End: 01-17-2025 ambulatory Jefferson Nathan MD Work Phone: [facility] Pulmonary and Sleep Medicine - [place] Comment on above: RSV (acute bronchiol itis [...] (Primary Dx); ESRD on hemodialysis (CMS/HCC) (HCC); MCC (current) use of antibiotics; Decubitus ulcer of sacral region, unstageable (HCC); Sacral osteomyelitis (CMS/HCC) (HCC) Start: 01-16-2025 End: 01-16-2025 ambulatory Jefferson Nathan MD Work Phone: [facility] Comment on above: RSV (acute bronchiol itis [...] 01-15-2025 ambulatory Jefferson Nathan MD Work Phone: [facility] Pulmonary and Sleep Medicine [facility] Comment on above: RSV (acute bronchiol itis [...] 01-14-2025 ambulatory Hany Berrios MD Work Phone: [facility] Pulmonary and Sleep Medicine [facility] Comment on above: Acute respiratory fa ilure with hypoxia (HCC) [J96.01] (Primary Dx); 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]; Pulmonary embolism, other, unspecified chronicity, unspecified whether acute cor pulmonale present (HCC) Start: 01-12-2025 End: 01-12-2025 ambulatory Mikala Day PA-C Work Phone: [facility] Infectious Dis Comment on above: Tracheostomy depende nce (HCC) (Primary Dx); Sacral osteomyelitis (CMS/HCC) (HCC); Leukocytosis, unspecified type; Decubitus ulcer of sacral region, unstageable (HCC); MCC (current) use of antibiotics Acute respiratory fa ilure with hypoxia (HCC) [J96.01] (Primary Dx); 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]; Pulmonary embolism, other, unspecified chronicity, unspecified whether acute cor pulmonale present (HCC) Start: 01-11-2025 End: 01-11-2025 ambulatory Mikala Day PA-C Work Phone: [facility] Infectious Dis Comment on above: Tracheostomy [...] 01-10-2025 ambulatory Hany Berrios MD Work Phone: [facility] Pulmonary and Sleep Medicine [facility] Comment on above: Acute respiratory fa ilure with hypoxia (HCC) [J96.01] (Primary Dx); 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]; Pulmonary embolism, other, unspecified chronicity, unspecified whether acute cor pulmonale present (HCC) Start: 01-09-2025 End: 01-09-2025 ambulatory Mikala Day PA-C Work Phone: [facility] Infectious Dis Comment on above: Tracheostomy [...] 01-08-2025 ambulatory Mikala Day PA-C Work Phone: [facility] Infectious Dis Comment on above: Tracheostomy [...] Start: 01-05-2025 End: 01-05-2025 ambulatory Sydni Husain PASSENGER [employer] - ALCOHOL STILL OPERATOR Work Phone: [facility] Infectious Disease - [place] Comment on above: Pneumonia of both marleny ngs due to methicillin susceptible Staphylococcus aureus (MSSA), unspecified part of lung (HCC) (Primary Dx); Acute hypoxic respiratory failure (HCC); Tracheostomy dependence (HCC); ESRD on hemodialysis (CMS/HCC) (HCC); Sacral osteomyelitis (CMS/HCC) (HCC); Decubitus ulcer of sacral region, unstageable (HCC) Start: 01-05-2025 End: 01-05-2025 Patient encounter procedure Chandrika Allen P[employer]ENGER [employer] Work Phone: [facility] [place] Comment on above: Acute respiratory fa ilure with hypoxia (HCC) [J96.01] (Primary Dx); 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]; LRTI (lower respiratory tract infection) [J22] Start: 01-04-2025 End: 01-04-2025 Admission to same day surgery center Sydni Husain APRN - ALCOHOL STILL OPERATOR Work Phone: [facility] Infectious Disease - [place] Comment on above: Tracheostomy depende nce (HCC) (Primary Dx); Pneumonia of both lungs due to methicillin susceptible Staphylococcus aureus (MSSA), unspecified part of lung (HCC); Acute hypoxic respiratory failure (HCC); Peritonitis due to fungus (HCC); ESRD on hemodialysis (CMS/HCC) (HCC); Sacral osteomyelitis (CMS/HCC) (HCC); Leukocytosis, unspecified type; History of abdominal surgery Start: 01-04-2025 End: 01-04-2025 ambulatory Sydni Husain PASSENGER [employer] - ALCOHOL STILL OPERATOR Work Phone: [facility] Infectious Disease - [place] Start: 01-04-2025 End: 01-04-2025 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] (Primary Dx); Acute respiratory failure with hypoxia (HCC) [J96.01] Start: 01-02-2025 End: 01-02-2025 ambulatory Josephine Adrianna Cash [employer] Work Phone: [facility] Infectious Disease - [place] Comment on above: Leukocytosis, unspec ified type (Primary Dx); Pneumonia of both lungs due to methicillin susceptible Staphylococcus aureus (MSSA), unspecified part of lung (HCC); Acute hypoxic respiratory failure (HCC); Decubitus ulcer of sacral region, unstageable (HCC); ESRD on hemodialysis (CMS/HCC) (HCC); S/P AVR Start: 01-02-2025 End: 01-02-2025 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] (Primary Dx); Acute respiratory failure with hypoxia (HCC) [J96.01] Start: 01-01-2025 End: 01-01-2025 ambulatory Ochoa Guido MD Work Phone: [facility] Cardiology [facility] Comment on above: Persistent atrial fi brillation (HCC) (Primary Dx) Leukocytosis, unspec ified type (Primary Dx); Pneumonia of both lungs due to methicillin susceptible Staphylococcus aureus (MSSA), unspecified part of lung (HCC); Acute hypoxic respiratory failure (HCC); Tracheostomy dependence (HCC); Decubitus ulcer of sacral region, unstageable (HCC); ESRD on hemodialysis (CMS/HCC) (HCC); S/P AVR Start: 01-01-2025 End: 01-01-2025 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] (Primary Dx); Acute respiratory failure with hypoxia (HCC) [J96.01] Start: 12-30-2024 End: 12-30-2024 ambulatory Josephine Cash PASSENGER [employer] - ALCOHOL STILL OPERATOR Work Phone: [facility] Infectious Dis Comment on above: Leukocytosis, unspec ified type (Primary Dx); Acute hypoxic respiratory failure (HCC); Tracheostomy dependence (HCC); S/P AVR; ESRD on hemodialysis (CMS/HCC) (HCC); Decubitus ulcer of sacral region, unstageable (HCC) Start: 12-28-2024 End: 12-28-2024 ambulatory Mercedes Hinton PASSENGER [employer] - ALCOHOL STILL OPERATOR Work Phone: [facility] Lung Nodule [facility] [place] Start: 12-28-2024 End: 12-28-2024 Patient encounter procedure Mercedes Hinton PASSENGER [employer] - ALCOHOL STILL OPERATOR Work Phone: [facility] Lung Nodule [facility] [place] Comment on above: Acute respiratory fa ilure with hypoxia (HCC) [J96.01] (Primary Dx); 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]; Tracheostomy care (HCC) [Z43.0]; History of pulmonary embolus (PE) [Z86.711] Start: 12-26-2024 End: 12-26-2024 ambulatory Mercedesfrancisco Hinton PASSENGER [employer] - ALCOHOL STILL OPERATOR Work Phone: [facility] Start: 12-26-2024 End: 12-26-2024 Patient encounter procedure Mercedes Hinton PASSENGER [employer] - ALCOHOL STILL OPERATOR Work Phone: [facility] Comment on above: Acute respiratory fa ilure with hypoxia (HCC) [J96.01] (Primary Dx); 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]; Tracheostomy care (HCC) [Z43.0]; History of pulmonary embolus (PE) [Z86.711] Start: 12-22-2024 End: 12-22-2024 ambulatory Chandrika Allen P[employer]ENGER [employer] Work Phone: [facility] Start: 12-22-2024 End: 12-22-2024 Patient encounter procedure Chandrika Allen P[employer]ENGER [employer] Work Phone: [facility] Comment on above: 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] (Primary Dx); Acute respiratory failure with hypoxia (HCC) [J96.01]; LRTI (lower respiratory tract infection) [J22] Start: 12-21-2024 End: 12-21-2024 ambulatory Chandrika Allen P[employer]ENGER [employer] Work Phone: [facility] Lung [facility] Start: 12-21-2024 End: 12-21-2024 Patient encounter procedure Chandrika Allen PASSENGER [employer] - ALCOHOL STILL OPERATOR Work Phone: [facility] Comment on above: 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] (Primary Dx); Acute respiratory failure with hypoxia (HCC) [J96.01]; LRTI (lower respiratory tract infection) [J22] Start: 12-20-2024 End: 12-20-2024 ambulatory Chandrika Allen PASSENGER [employer] - ALCOHOL STILL OPERATOR Work Phone: [facility] Lung Nodule [facility] Start: 12-20-2024 End: 12-20-2024 Patient encounter procedure Chandrika Allen PASSENGER [employer] - ALCOHOL STILL OPERATOR Work Phone: [facility] Lung Nodule [facility] Comment on above: 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] (Primary Dx); Acute respiratory failure with hypoxia (HCC) [J96.01]; LRTI (lower respiratory tract infection) [J22] Start: 12-19-2024 End: 12-19-2024 ambulatory Chandrika Allen PASSENGER [employer] - ALCOHOL STILL OPERATOR Work Phone: [facility] Start: 12-19-2024 End: 12-19-2024 Patient encounter procedure Chandrika Jonathan Allen PASSENGER [employer] - ALCOHOL STILL OPERATOR Work Phone: [facility] Comment on above: 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] (Primary Dx); Acute respiratory failure with hypoxia (HCC) [J96.01]; LRTI (lower respiratory tract infection) [J22] Start: 12-18-2024 End: 12-18-2024 Patient encounter procedure Chandrika Allen PASSENGER [employer] - ALCOHOL STILL OPERATOR Work Phone: [facility] Nodule [facility] Comment on above: Acute respiratory fa ilure with hypoxia (HCC) [J96.01] (Primary Dx); 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]; LRTI (lower respiratory tract infection) [J22] Start: 12-18-2024 End: 12-18-2024 ambulatory Chandrika Forrester CNP Work Phone: [facility] Lung Nodule [facility] [place] Start: 12-15-2024 End: 12-15-2024 ambulatory Jefferson Nathan MD Work Phone: [facility] Lung Nodule [facility] Start: 12-15-2024 End: 12-15-2024 Patient encounter procedure Jefferson Nathan MD Work Phone: [facility] Lung Nodule [facility] Comment on above: Acute respiratory fa ilure with hypoxia (HCC) (Primary Dx); Tracheostomy dependence (HCC); RSV (acute bronchiolitis due to respiratory syncytial virus); Leg DVT (deep venous thromboembolism), acute, left (HCC); Nonrheumatic aortic valve stenosis Start: 12-14-2024 End: 12-14-2024 ambulatory Jefferson Nathan MD Work Phone: [facility] Pulmonary and Sleep Medicine [facility] Comment on above: Acute respiratory fa ilure with hypoxia (HCC) (Primary Dx); Tracheostomy dependence (HCC); RSV (acute bronchiolitis due to respiratory syncytial virus); ESRD on hemodialysis (CMS/HCC) (HCC); Pulmonary embolism, other, unspecified chronicity, unspecified whether acute cor pulmonale present (HCC); Nonrheumatic aortic valve stenosis Start: 12-13-2024 End: 12-13-2024 ambulatory Jefferson Nathan MD Work Phone: [facility] Pulmonary and Sleep Medicine [facility] Comment on above: Acute respiratory fa ilure with hypoxia (HCC) (Primary Dx); Tracheostomy dependence (HCC); RSV (acute bronchiolitis due to respiratory syncytial virus); Paroxysmal A-fib (CMS/HCC) (HCC); Nonrheumatic aortic valve stenosis Start: 12-12-2024 End: 12-12-2024 ambulatory Jefferson Nathan MD Work Phone: [facility] Pulmonary and Sleep [facility] Comment on above: RSV (acute bronchiol itis due to respiratory syncytial virus) (Primary Dx); Tracheostomy dependence (HCC); Acute respiratory failure with hypoxia (HCC); Paroxysmal A-fib (CMS/HCC) (HCC); Peritonitis due to fungus (HCC) Start: 12-11-2024 End: 12-11-2024 ambulatory Jefferson Nathan MD Work Phone: [facility] Pulmonary and Sleep Medicine [facility] Comment on above: RSV (acute bronchiol itis [...] day surgery center Sydni Husain APRN - ALCOHOL STILL OPERATOR Work Phone: [facility] Infectious Disease - [place] Comment on above: Acute respiratory fa ilure with hypoxia (HCC) (Primary Dx); Tracheostomy dependence (HCC); S/P AVR; Peritonitis due to fungus (HCC); ESRD on hemodialysis (CMS/HCC) (HCC); 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 hospital care/day 25 minutes Vincent Meek MD Work Phone: [facility] Lung [facility] - [place] Comment on above: Acute respiratory fa ilure with hypoxia (HCC) (Primary Dx); Ventilator dependent (HCC); Tracheostomy dependence (HCC); Pulmonary embolism, other, unspecified chronicity, unspecified whether acute cor pulmonale present (HCC); S/P AVR; ESRD on hemodialysis ([facility]/HCC) (HCC) Start: 12-06-2024 End: 12-06-2024 Admission to same day surgery center Sydni Husain APRN - ALCOHOL STILL OPERATOR Work Phone: [facility] Disease - [place] Comment on above: Acute respiratory fa ilure with hypoxia (HCC) (Primary Dx); Tracheostomy dependence (HCC); S/P AVR; Peritonitis due to fungus (HCC); ESRD on hemodialysis ([facility]/HCC) (HCC); 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 hospital care/day 25 minutes Vincent Meek MD Work Phone: [facility] Lung Nodule [facility] [place] Comment on above: Acute respiratory fa ilure with hypoxia (HCC) (Primary Dx); Ventilator dependent (HCC); Tracheostomy dependence (HCC); Pulmonary embolism, other, unspecified chronicity, unspecified whether acute cor pulmonale present (HCC); S/P AVR; ESRD on hemodialysis ([facility]/HCC) (HCC) Start: 12-05-2024 End: 03-23-2025 [facility] hospital care/day 35 minutes Vincent Meek MD Work Phone: [facility] Lung Nodule [facility] [place] Comment on above: Acute respiratory fa ilure with hypoxia (HCC) (Primary Dx); Tracheostomy dependence (HCC); Ventilator dependent (HCC); Pulmonary embolism, other, unspecified chronicity, unspecified whether acute cor pulmonale present (HCC); S/P AVR; ESRD on hemodialysis ([facility] [facility]/HCC) (HCC) Start: 12-04-2024 End: 12-04-2024 Admission to same day surgery center Sydni Husain PASSENGER FLAGMAN - ALCOHOL STILL OPERATOR Work Phone: [facility] Infectious Disease - [place] Comment on above: Acute respiratory fa ilure with hypoxia (HCC) (Primary Dx); Tracheostomy dependence (HCC); S/P AVR; Peritonitis due to fungus (HCC); ESRD on hemodialysis (CMS/HCC) (HCC); 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, 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); History of abdominal surgery Start: 12-04-2024 End: 12-04-2024 ambulatory Sydni Husain PASSENGER FLAGMAN - ALCOHOL STILL OPERATOR Work Phone: [facility] Infectious Disease - [place] Comment on above: Atypical atrial flut ter (HCC) (Primary Dx) Start: 12-01-2024 End: 12-01-2024 Admission to same day surgery center Sydni Husain PASSENGER FLAGMAN - ALCOHOL STILL OPERATOR Work Phone: [facility] Infectious Disease - [place] Comment on above: [...] 12-01-2024 ambulatory Jefferson Nathan MD Work Phone: [facility] Lung Nodule [facility] Comment on above: Atypical atrial flut ter (HCC) (Primary Dx) Start: 12-01-2024 End: 12-01-2024 Patient encounter procedure Jefferson Nathan MD Work Phone: [facility] Lung Nodule [facility] Comment on above: Acute respiratory fa ilure with hypoxia (HCC) (Primary Dx); Tracheostomy dependence (HCC); Ventilator dependent (HCC); Pulmonary embolism, other, unspecified chronicity, unspecified whether acute cor pulmonale present (HCC); S/P AVR Start: 11-30-2024 End: 11-30-2024 Admission to same day surgery center Sydni Husain PASSENGER FLAGMAN - ALCOHOL STILL OPERATOR Work Phone: [facility] Infectious Disease - [place] Comment on above: Acute respiratory fa ilure with hypoxia (HCC) (Primary Dx); Tracheostomy dependence (HCC); S/P AVR; Peritonitis due to fungus (HCC); ESRD on hemodialysis (CMS/HCC) (HCC); 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, 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); Leg DVT (deep venous thromboembolism), acute, left (HCC); History of abdominal surgery Start: 11-30-2024 End: 11-30-2024 ambulatory Sydni Husain PASSENGER FLAGMAN - ALCOHOL STILL OPERATOR Work Phone: [facility] Infectious Disease - [place] Comment on above: Acute respiratory fa ilure with hypoxia (HCC) (Primary Dx); Tracheostomy dependence (HCC); Ventilator dependent (HCC); Pulmonary embolism, other, unspecified chronicity, unspecified whether acute cor pulmonale present (HCC); S/P AVR; Tracheostomy dependent (HCC); Chronic bronchitis, unspecified chronic bronchitis type (HCC); ESRD on hemodialysis (CMS/HCC) (HCC) Start: 11-29-2024 End: 11-30-2024 Admission to same day surgery center Sydni Husain PASSENGER FLAGMAN - ALCOHOL STILL OPERATOR Work Phone: [facility] Infectious Disease - [place] Comment on above: Peritonitis due to f ungus (HCC) (Primary Dx); History of abdominal surgery; S/P AVR; Ischemic ulcer of toe of left foot, 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); Leg DVT (deep venous thromboembolism), acute, left (HCC); Anemia, unspecified type Start: 11-29-2024 End: 11-30-2024 ambulatory Jefferson Nathan MD Work Phone: [facility] Pulmonary and Sleep Medicine [facility] Comment on above: Acute respiratory fa ilure with hypoxia (HCC) (Primary Dx); Atrial flutter, unspecified type (HCC); Pulmonary embolism, other, unspecified chronicity, unspecified whether acute cor pulmonale present (HCC); Ventilator dependent (HCC); Tracheostomy dependent (HCC); S/P AVR; Chronic bronchitis, unspecified chronic bronchitis type (HCC); ESRD on hemodialysis (CMS/HCC) (HCC) Start: 11-28-2024 End: 11-29-2024 Telephone encounter Jefferson Nathan MD Work Phone: [facility] Pulmonary and Sleep Medicine [facility] Comment on above: Advice Only Start: 10-22-2024 End: 10-22-2024 ambulatory [facility] Start: 10-21-2024 End: 10-25-2024 ambulatory [facility] Start: 10-16-2024 End: 10-16-2024 Telephone encounter Enid MartinezRomulo Leslienavdeep PASSENGER FLAGMAN - ALCOHOL STILL OPERATOR Work Phone: [facility] Gastroenterology - [place] Comment on above: Care Coordination Start: 10-13-2024 End: 10-13-2024 Telephone encounter Lan Carpenter PA-C Work Phone: [facility] Start: 10-12-2024 End: 10-12-2024 Evaluation and management of inpatient Vincent Wilson MD Work Phone: [facility] OR Start: 10-03-2024 End: 10-03-2024 Emergency department patient visit [facility] Start: 10-03-2024 End: 10-03-2024 Subsequent hospital visit by physician [facility] Exam Room [facility] [address] Comment on above: Arrived Start: 10-03-2024 End: 11-28-2024 Evaluation and management of inpatient [facility] Start: 08-28-2024 End: 08-28-2024 ambulatory JR SHAH [facility] Start: 08-28-2024 End: 08-28-2024 Office outpatient visit 25 minutes Jr Shah MD Work Phone: [facility] Cardiology [facility] Comment on above: Paroxysmal A-fib (CM S/HCC) (HCC) (Primary Dx); Nonrheumatic aortic valve stenosis; Tobacco abuse; Alcohol use disorder in remission Start: 05-10-2024 Chart abstracting Alan Barroso RN [facility] Comment on above: Dialysis status upda te Start: 04-12-2024 Telephone encounter Kidney Txp Coordinators Work Phone: Transplant Center Start: 02-12-2024 Telephone encounter Jr Shah MD Work Phone: [facility] Central Scheduling Comment on above: unable to contact pa gilmernt unable to contact greg diop to schedule Start: 11-12-2023 End: 11-12-2023 Office outpatient visit 25 minutes Quiana Contreras PASSENGER FLAGMAN - ALCOHOL STILL OPERATOR Work Phone: [facility] Cardiology Comment on above: Nonrheumatic aortic valve stenosis (Primary Dx); Paroxysmal A-fib (CMS/HCC) (HCC); Primary hypertension; Calcification of abdominal aorta (HCC); Tobacco abuse; ESRD on hemodialysis (CMS/HCC) (HCC) Start: 10-14-2023 Telephone encounter Sasha Taryn weeks PASSENGER FLAGMAN - ALCOHOL STILL OPERATOR Work Phone: [facility] Cardiology Comment on above: Cancelled Appointmen t Start: 09-07-2023 Transcribe Orders Fransisco toro PASSENGER FLAGMAN Work Phone: [facility] Central Scheduling Comment on above: Personal history of nicotine dependence (Primary Dx); Nicotine dependence, cigarettes, uncomplicated Start: 08-18-2023 Telephone encounter Quiana forman PASSENGER FLAGMAN - ALCOHOL STILL OPERATOR Work Phone: [facility] Cardiology Start: 08-16-2023 End: 08-17-2023 Evaluation and management of inpatient Dangelo Horne Work Phone: [facility] ED Comment on above: New onset a-fib (CMS /HCC) (HCC) (Primary Dx); Atrial fibrillation, persistent (HCC) Start: 05-01-2023 End: 05-01-2023 Emergency department patient visit Jese Frank MD Work Phone: [facility] ED Comment on above: Skin sore (Primary D x); ESRD (end stage renal disease) on dialysis (HCC) Start: 12-30-2021 Telephone encounter Giovani mckee MD Work Phone: [facility] [place] Comment on above: Procedure please advise Start: 12-29-2021 ambulatory Shameem Santa Painter MD Work Phone: Ambulatory Surgery Start: 12-29-2021 Telephone encounter Cecilia galo PA-C Work Phone: [facility] [place] Comment on above: cecilia carlson Start: 12-25-2021 End: 12-25-2021 Patient encounter procedure Rudy Painter MD Work Phone: [facility] [place] Comment on above: Acute blood loss ane ruth (Primary Dx); Rectal bleeding Start: 09-15-2021 End: 09-15-2021 Subsequent hospital visit by physician Cindy Patel MD Work Phone: [facility] Cath & IR Lab Start: 10-17-2020 End: 10-17-2020 Subsequent hospital visit by physician Cindy Patel Work Phone: [facility] [place] [facility] Start: 03-13-2020 End: 03-13-2020 Subsequent hospital visit by physician Lab [place] Acc LAB EKG [place] [facility] Comment on above: Preoperative testing [Z01.818] Start: 10-19-2019 End: 10-27-2019 Evaluation and management of inpatient Callie Nieves DO Work Phone: [facility] MED SURG Comment on above: Acute kidney injury (HCC) (Primary Dx); Uncontrolled hypertension; Normocytic anemia; Angioedema, initial encounter; Hyperkalemia; Metabolic acidosis; Rectal bleeding Procedures Date Procedure Procedure Detail Performing Clinician Start: 04-17-2025 Comprehensive metabo lic panel Keiry Solares MD Work Phone: Start: 04-09-2025 Radex hand minimum 3 views Terascala PA-C Work Phone: Start: 04-09-2025 Basic metabolic pane l calcium total Yari CasaHop PA-C Work Phone: Start: 04-05-2025 Assay of [...] quantitative Rudolph Ibarra DO Work Phone: Start: 02-25-2025 Prothrombin time [...] on above: Performed By: #### L [id number] ####Weather Strip Mechanic: DOMENICA JARA ([phone])[facility] BLOOD [facility] ([address] Start: 02-21-2025 C-reactive protein Karena Jett [...] Work Phone: Start: 01-26-2025 Blood count hematocrit Hcantell Laquidara DO Work Phone: Start: 01-26-2025 Thromboplastin [...] Phone: Start: 01-25-2025 Blood count hematocrit Yifan Longoriasophia Stewart DO Work Phone: Start: 01-25-2025 Radiologic exam swal low function contrast study Elly Jett MD Work Phone: Start: 01-25-2025 Blood count hematocrit Chantell Laquidara DO Work Phone: Start: 01-25-2025 Prothrombin time Elly Jett MD Work Phone: Start: 01-25-2025 Compatibility each u nit electronic Sangeeta Reyes DO Start: 01-25-2025 End: 01-25-2025 TRANSFUSE RED BLOOD CELLS Sangeeta olguin DO Start: 01-25-2025 Basic metabolic pane l calcium total Chantell Laquidara DO Work Phone: Start: 01-25-2025 Blood typing serolog ic abo Sangeetamk Reyes DO Start: 01-24-2025 Prothrombin time Linda [...] Blood count complete automated [place] Román Flores PASSENGER FLAGMAN - ALCOHOL STILL OPERATOR Work Phone: Start: 01-21-2025 Glucose quantitative blood [...] ntrst mtrl w/wo cntrst img Japheth Eitamaegbe Okcharleyolo DO Work Phone: Start: 01-20-2025 Blood count [...] History of abd ominal surgery Sydni Husain PASSENGER FLAGMAN - ALCOHOL STILL OPERATOR Work Phone: Start: 10-12-2024 Insj non-tunneled ce ntral venous cath age 5 yr/> Rudolph German FOAM CHARGER Start: 10-12-2024 VT AN CENTRAL LINE T RIPLE LUMEN Rudolph German FOAM CHARGER Start: 10-12-2024 VT AN ELECTIVE ENDOTRACHEAL AIRWAY Rudolph German FOAM CHARGER Start: 10-12-2024 Us vasc access sits vsl patency ndl entry Rudolph German FOAM CHARGER Start: 10-12-2024 ANESTHESIA ARTERIAL LINE PLACEMENT Rudolph German FOAM CHARGER Start: 10-03-2024 Ct head/brain w/o contrast material [...] vaccination due to patient refusal Sasha Lemons PASSENGER FLAGMAN - ALCOHOL STILL OPERATOR Work Phone: Start: 08-17-2023 Echo tthrc r-t 2d w/wom-mode compl spec&colr d Earlene Irving MD Work Phone: Start: 08-17-2023 Thyrotropin [Units/volume] in Serum or Plasma Lan JO-Walter Work Phone: Start: 08-17-2023 Basic metabolic pane l calcium total Earlene Irving MD Work Phone: Start: 08-16-2023 End: 08-16-2023 Basic metabolic panel calcium total Sha Baltazar Roberta PAEons Work Phone: Start: 08-16-2023 Radiologic exam ches t single view Sha Chandana Roberta PA-[employer] Work Phone: Start: 08-16-2023 Ecg routine ecg w/le ast 12 lds i&r only Dangelo Horne DO Work Phone: Start: 10-17-2020 Special treatments a nd procedures Cindy Patel Work Phone: Start: 03-13-2020 Ecg routine ecg w/le ast 12 lds trcg only w/o i&r [place] Provider Start: 03-13-2020 BASIC METABOLIC PNL Tati farooq (Assurance Senior Rehabilitation Manager) Zachary Work Phone: Start: 03-13-2020 CBC Darya (A prn Rehabilitation Manager) aZchary Work Phone: Start: 03-13-2020 MDRD GFR Darya (A prn Rehabilitation Manager) Zachary Work Phone: Start: 03-13-2020 PROTHROMBIN TIME/PT Tati farooq (Assurance Senior Rehabilitation Manager) Zachary Work Phone: Start: 10-27-2019 Basic [...] metabolic panel calcium total Delon Gutierrez Jaskaran PASSENGER FLAGMAN - ALCOHOL STILL OPERATOR Work Phone: Start: 10-22-2019 GLOMERULAR BASEMENT MEMBRANE (GBM) ANTIBODY IGG Randolph Euceda MD Work Phone: Start: 10-21-2019 Radiologic exam abdo men 1 view Brett Encarnacion MD Work Phone: Start: 10-21-2019 End: 10-21-2019 Dup-scan artl shayan abdl/pel/scrot&/rpr orgn com Brett Encarnacion MD Work Phone: Start: 10-21-2019 Basic metabolic pane l calcium total Delon Matt Jaskaran PASSENGER FLAGMAN - ALCOHOL STILL OPERATOR Work Phone: Start: 10-20-2019 Basic metabolic pane l calcium total Brett Encarnacion MD Work Phone: Start: 10-20-2019 TRANSFUSE RED BLOOD CELLS Delon A Jaskaran PASSENGER FLAGMAN - ALCOHOL STILL OPERATOR Work Phone: Start: 10-20-2019 TRANSFUSE RED BLOOD CELLS Delon A Jaskaran PASSENGER FLAGMAN - ALCOHOL STILL OPERATOR Work Phone: Start: 10-20-2019 Blood count hemoglobin Delon Gutierrez Jaskaran PASSENGER FLAGMAN - ALCOHOL STILL OPERATOR Work Phone: Start: 10-20-2019 Basic metabolic pane l calcium total Delon Matt Jaskaran PASSENGER FLAGMAN - ALCOHOL STILL OPERATOR Work Phone: Start: 10-20-2019 RBC morphology findi ng Nom (Bld) Delon Matt Jaskaran PASSENGER FLAGMAN - ALCOHOL STILL OPERATOR Work Phone: Start: 10-19-2019 Basic metabolic pane [...] Phone: Comment on above: Test Performed by [facility], [address] [place], [place] [address] Start: 10-19-2019 End: 10-19-2019 ADD ON LAB [...] of abdom inal surgery Sydni C [place] PASSENGER FLAGMAN - ALCOHOL STILL OPERATOR Work Phone: H/O: surgery History of abdom inal surgery Sydni Watson [place] PASSENGER FLAGMAN - ALCOHOL STILL OPERATOR Work Phone: H/O: surgery History of abdom inal surgery Sydni C [place] PASSENGER FLAGMAN - ALCOHOL STILL OPERATOR Work Phone: H/O: surgery History of abdom inal surgery Sydni Watson [place] PASSENGER FLAGMAN - ALCOHOL STILL OPERATOR Work Phone: H/O: surgery History of abdom inal surgery Sydni Walter [place] PASSENGER FLAGMAN - ALCOHOL STILL OPERATOR Work Phone: H/O: surgery History of abdom inal surgery Sydni Watson [place] PASSENGER FLAGMAN - ALCOHOL STILL OPERATOR Work Phone: Vaccine refused by patient Missed vaccination due to patient refusal Palak Thurman DO Work Phone: Plan of Treatment Date Care Activity Detail Author Start: 2040 RSV Immunization for Adults (1 - 1-dose 75+ series) RSV Immunization for Adults (1 - 1-dose 75+ series) [facility] Start: 2040 [facility] Start: 01-24-2035 Screening for malignant neoplasm of colon [facility] Start: 03-14-2030 Lipid panel Lipid Panel [facility] Start: 04-17-2026 Creatinine measurement Creatinine Level [facility] Start: 04-17-2026 Potassium measurement Potassium Level [facility] Start: 04-12-2026 Screening for malignant neoplasm of lung Lung Cancer Screening [facility] Start: 04-09-2026 Creatinine measurement Creatinine Level [facility] Start: 04-09-2026 Potassium measurement Potassium Level [facility] Start: 04-05-2026 Creatinine measurement Creatinine Level [facility] Start: 04-05-2026 Potassium measurement Potassium Level [facility] Start: 03-21-2026 Creatinine measurement Creatinine Level [facility] Start: 03-21-2026 Potassium measurement Potassium Level [facility] Start: 03-13-2026 Screening for malignant neoplasm [...] measurement [facility] Start: 02-01-2026 [facility] [...] Health Start: 01-01-2026 Creatinine measurement Creatinine Level [facility] Start: 01-01-2026 Potassium measurement Potassium Level [facility] Start: 12-30-2025 Creatinine measurement Creatinine Level [facility] Start: 12-30-2025 Potassium measurement Potassium Level [facility] Start: 12-25-2025 Creatinine measurement Creatinine Level [facility] Start: 12-25-2025 Potassium measurement Potassium Level [facility] Start: 12-22-2025 Creatinine measurement Creatinine Level [facility] Start: 12-22-2025 Potassium measurement Potassium Level [facility] Start: 12-18-2025 Creatinine measurement Creatinine Level [facility] Start: 12-18-2025 Potassium measurement Potassium Level [facility] Start: 12-15-2025 Creatinine measurement Creatinine Level [facility] Start: 12-15-2025 Potassium measurement Potassium Level [facility] Start: 12-11-2025 Creatinine measurement Creatinine Level [facility] Start: 12-11-2025 Potassium measurement Potassium Level [facility] Start: 12-04-2025 Creatinine measurement Creatinine Level [facility] Start: 12-04-2025 Potassium measurement Potassium Level [facility] Start: 12-01-2025 Creatinine measurement Creatinine Level [facility] Start: 12-01-2025 Potassium measurement Potassium Level [facility] Start: 11-30-2025 Creatinine measurement Creatinine Level [facility] Start: 11-30-2025 Potassium measurement Potassium Level [facility] Start: 11-29-2025 Creatinine measurement Creatinine Level [facility] Start: 11-29-2025 Potassium measurement Potassium Level [facility] Start: 11-24-2025 Echocardiography Echocardiogram [facility] Start: 11-24-2025 [facility] Start: 2025 RSV Immunization aged 60 or older (1 - 1-dose 60+ series) RSV Immunization aged 60 or older (1 - 1-dose 60+ series) [facility] Start: 11-03-2025 Creatinine measurement Creatinine Level [facility] Start: 11-03-2025 Potassium measurement Potassium Level [facility] Start: 11-02-2025 Echocardiography Echocardiogram [facility] Start: 10-11-2025 Screening for malignant neoplasm of lung [facility] Start: 05-28-2025 Influenza vaccination [facility] Start: 05-28-2025 [facility] Start: 04-26-2025 End: 04-26-2025 Patient encounter procedure 04/26/2025 9:20 AM EDT Office Visit [facility] Lung Nodule [facility] [place] [address] [place] [phone] Yasemin Lucas, DENIA - ALCOHOL STILL OPERATOR [address] [place] [address] [facility] Lung Nodule [facility] [place] Start: 04-12-2025 End: 04-12-2025 Patient encounter procedure [facility] [address] Start: 04-05-2025 End: 04-05-2025 ambulatory [facility] Start: 04-05-2025 End: 04-05-2025 Patient encounter procedure 04/05/2025 1:00 PM EDT Office Visit [facility] [address] [place] [phone] Sophia Lara, PASSENGER FLAGMAN - ALCOHOL STILL OPERATOR [address] [facility] [place] [address] [facility] Start: 04-03-2025 End: 04-03-2025 ambulatory [facility] Cardiology [facility] Start: 04-03-2025 End: 04-03-2025 Patient encounter procedure 04/03/2025 10:45 AM EDT Office Visit [facility] [address] [place] [phone] Zoe Valadez, PASSENGER FLAGMAN - ALCOHOL STILL OPERATOR [address] [facility] [address] [place] [phone] [facility] Start: 03-26-2025 End: 02-23-2026 CT Chest WO contrast CT chest wo IV contrast Imaging Routine Hemoptysis Expected: 03/26/2025, Expires: 02/23/2026 [facility] Work Phone: Comment on above: Expected: 03/26/2025, Expires: Start: 02-15-2025 End: 02-15-2025 ambulatory [facility] Start: 02-15-2025 End: 02-15-2025 Patient encounter procedure [facility] Start: 02-14-2025 End: 02-14-2025 ambulatory [facility] Infectious Disease - [place] Start: 02-14-2025 End: 02-14-2025 Patient encounter procedure [facility] Special Procedures Start: 12-25-2024 End: 12-25-2024 Patient encounter procedure 12/25/2024 10:00 AM EDT Office Visit [facility] [address] [facility] [place] [phone] Sophia Lara, PASSENGER FLAGMAN - ALCOHOL STILL OPERATOR [address] [place] [address] [facility] [place] Start: 12-18-2024 End: 12-18-2024 Telemedicine consultation with patient 12/18/2024 1:00 PM EDT Telemedicine [facility] Cardiovascular Thoracic Surgery - [place] [address] [place] [phone] Osiris Terrell, PASSENGER FLAGMAN - ALCOHOL STILL OPERATOR [address] [place] [address] [facility] Cardiovascular Thoracic Surgery - [place] Start: 10-09-2024 End: 10-09-2024 Patient encounter procedure 10/09/2024 3:00 PM EST Appointment [facility] 1 [facility] Stress [address] [facility] [address] [place] [phone] Jr Shah MD [address] [facility] [address] [place] [address] [facility] 1 [facility] Start: 09-27-2024 Medicare Advantage Annual Wellness Visit Medicare Advantage Annual Wellness Visit [facility] Start: 09-27-2024 [facility] Start: 09-13-2024 End: 09-13-2024 Patient encounter procedure 09/13/2024 3:00 PM EST Appointment [facility] 1 [facility] Stress [address] [facility] [address] [place] [phone] Jr Shah MD [address] [facility] [address] [place], [place] [phone] [facility] [address] [facility] Start: 09-11-2024 End: 08-28-2026 US Heart Transthoracic Transthoracic echocardiogram (TTE) complete with contrast, bubble, strain, and 3D PRN CV Echocardiography Routine Nonrheumatic aortic valve stenosis Expected: 09/11/2024 (Approximate), Expires: 08/28/2026 [facility] Work Phone: Comment on above: Expected: 09/11/2024 (Approximate), Expi res: 08/28/2026 Start: 08-17-2024 Thyroid stimulating hormone measurement TSH Level [facility] Start: 05-28-2024 COVID-19 Vaccine ( season) COVID-19 Vaccine ( season) [facility] Start: 05-28-2024 Influenza vaccination [facility] Start: 05-28-2024 [facility] Start: 02-07-2024 End: 02-07-2024 Patient encounter procedure [facility] Start: 11-29-2023 End: 11-29-2023 Patient encounter procedure 11/29/2023 3:00 PM EST Appointment [facility] CT Imaging [address] [place] [phone] Fransisco Pineda, PASSENGER FLAGMAN [address] [place] [address] [facility] CT Imaging Start: 11-24-2023 End: 11-24-2023 Patient encounter procedure 11/24/2023 1:30 PM EST Office Visit [facility] Dermatology [address] [facility] [address] [place] [address] Madhuri De La Rosa MD [address] [facility] [place] [address] [facility] Dermatology Start: 09-27-2023 Behavioral Health Screening Behavioral Health Screening [facility] Start: 09-27-2023 Medicare Advantage Annual Wellness Visit Medicare Advantage Annual Wellness Visit [facility] Start: 09-07-2023 End: 09-07-2024 CT Chest for screening WO contrast CT lung screening low dose Imaging Routine Nicotine dependence, cigarettes, uncomplicated Personal history of nicotine dependence Expected: 09/07/2023, Expires: 09/07/2024 [facility] Work Phone: Comment on above: Expected: 09/07/2023, Expires: Start: 05-28-2023 COVID-19 Vaccine ( season) COVID-19 Vaccine () [facility] Start: 05-28-2023 Influenza vaccination Influenza Vaccine (#1) [facility] Start: 05-10-2023 DIABETES SCREEN DIABETES SCREEN [facility] Start: 05-10-2023 Diabetes Screening Diabetes Screening [facility] Start: 03-13-2023 DIABETES SCREEN DIABETES SCREEN [facility] Start: 05-28-2022 Influenza vaccination INFLUENZA (Season Ended) [facility] Start: 10-22-2021 End: 10-22-2021 Patient encounter procedure 10/22/2021 Office Visit Dermatology Madhuri De La Rosa MD [address] [facility] [place] [id number] [facility] Start: 05-28-2021 Influenza vaccination [facility] Start: 05-20-2021 Hepatitis B Vaccines (1 of 1 - Risk Dialysis 4-dose series) Hepatitis B Vaccines (1 of 1 - Risk Dialysis 4-dose series) [facility] Start: 05-20-2021 [facility] Start: 05-10-2021 HEMOGLOBIN/HEMATOCRIT HEMOGLOBIN/HEMATOCRIT [facility] Start: 05-10-2021 SERUM CREATININE SERUM CREATININE [facility] Start: 12-08-2020 Annual Wellness Visit (AWV) Annual Wellness Visit (AWV) [facility] Start: 2020 PROSTATE CANCER SCREENING DISCUSSION PROSTATE CANCER SCREENING DISCUSSION [facility] Start: 2020 Prostate specific antigen measurement Prostate Cancer Screening Discussion [facility] Start: 11-12-2020 End: 11-12-2020 Office Visit 11/12/2020 Office Visit Dermatology Madhuri De La Rosa MD [address] [facility] [place] [id number] Dermatology [facility] Start: 10-19-2020 Screening for malignant neoplasm of colon [facility] Start: 05-28-2020 Influenza vaccination [facility] Start: 05-28-2019 Influenza vaccination Flu vaccine (#1) [facility] Work Phone: Start: 2015 Screening for malignant neoplasm of colon Colon cancer screen colonoscopy [facility] [place] Start: 2015 Shingles Vaccine (1 of 2) Shingles Vaccine (1 of 2) [facility] Start: 2015 SHINGRIX VACCINE (1 of 2) SHINGRIX VACCINE (1 of 2) [facility] Start: 2015 Tuberculosis screening COLORECTAL CANCER SCREENING,SEE MODIFIER [facility] Start: 2015 Zoster Vaccines (1 of 2) Zoster Vaccines (1 of 2) [facility] Start: 2015 [facility] Start: 2010 COLOGUARD (FIT-DNA) COLOGUARD (FIT-DNA) [facility] Start: 2010 Colonoscopy COLONOSCOPY [facility] Start: 2010 COLORECTAL CANCER SCREENING COLORECTAL CANCER SCREENING [facility] Start: [address] COLONOGRAPHY [facility] Start: 2010 FECAL OCCULT BLOOD FECAL OCCULT BLOOD [facility] Start: 2010 Screening for malignant neoplasm of colon [facility] Start: 2010 SIGMOIDOSCOPY SIGMOIDOSCOPY [facility] Start: 2005 Diabetes screen Diabetes screen [facility] [place] Start: 2005 Lipid panel Lipid screen [facility] Start: 2000 Diabetes screen Diabetes screen [facility] Start: 2000 Lipid panel Lipid Screening [facility] Start: 2000 LIPID SCREEN LIPID SCREEN [facility] Start: 1984 DTaP/Tdap/Td vaccine (1 - Tdap) DTaP/Tdap/Td vaccine (1 - Tdap) [facility] Start: 1984 DTaP/Tdap/Td Vaccines (1 - Tdap) DTaP/Tdap/Td Vaccines (1 - Tdap) [facility] Start: 1984 Pneumococcal Vaccine: 50+ Years (1 of 2 - PCV) Pneumococcal Vaccine: 50+ Years (1 of 2 - PCV) [facility] Start: 1984 Urine microalbumin profile [facility] Start: 1984 [facility] Start: 1983 ANNUAL PCP TEAM CHRONIC DISEASE VISIT ANNUAL PCP TEAM CHRONIC DISEASE VISIT [facility] Start: 1983 Anxiety Screening Anxiety Screening [facility] Start: 1983 Depression Screening Depression Screening [facility] Start: 1983 Diabetes mellitus screening [facility] Start: 1983 HEPATITIS C SCREENING HEPATITIS C SCREENING [facility] Start: 1983 HIV SCREENING HIV SCREENING [facility] Start: 1983 HIV screening HIV Screening [facility] Start: 1977 Adult depression screening assessment DEPRESSION SCREENING [facility] Start: 1977 [facility] Start: 1971 Pneumococcal 0-64 years Vaccine (1 of 1 - PPSV23) Pneumococcal 0-64 years Vaccine (1 of 1 - PPSV23) [place] Start: 1971 Pneumococcal 0-64 years Vaccine (1 of 2 - PPSV23) Pneumococcal 0-64 years Vaccine (1 of 2 - PPSV23) [facility] Start: 1971 Pneumococcal vaccination Pneumococcal Vaccine (1 of 2 - PCV) [facility] Start: 1971 Pneumococcal Vaccine: Pediatrics (0 to 5 Years) and At-Risk Patients (6 to 64 Years) (1 - PCV) Pneumococcal Vaccine: Pediatrics (0 to 5 Years) and At-Risk Patients (6 to 64 Years) (1 - PCV) [facility] Start: 1971 Pneumococcal Vaccine: Pediatrics (0 to 5 Years) and At-Risk Patients (6 to 64 Years) (1 of 2 - PCV) Pneumococcal Vaccine: Pediatrics (0 to 5 Years) and At-Risk Patients (6 to 64 Years) (1 of 2 - PCV) [facility] Start: 1970 COVID-19 Vaccine (1) COVID-19 Vaccine (1) [facility] Start: 1966 MMR Vaccines (1 of 1 - Standard series) MMR Vaccines (1 of 1 - Standard series) [facility] Start: 1966 [facility] Start: 05-17-1966 COVID-19 Vaccine (#1) COVID-19 Vaccine (#1) [facility] Start: 05-17-1966 Examination of skin Derm Melanoma Skin Check [facility] Start: 1965 Lipid panel [facility] Start: 1965 Medicare Advantage Annual Wellness Visit (AWV) Medicare Advantage Annual Wellness Visit (AWV) [facility] Start: 1965 Screening for malignant neoplasm of colon [facility] Basic metabolic 2000 panel - Serum or Plasma Basic Metabolic Panel Lab Routine Daily until discontinued starting 10/23/2019, 5 completed [employer] Work Phone: Comment on above: Daily until discontinued starting 2019, 5 completed CBC W Auto Different ial panel - Blood CBC Auto Differential Lab Routine Daily until discontinued starting 10/23/2019, 5 completed [facility] Work Phone: Comment on above: Daily until discontinued starting 2019, 5 completed End: 12-25-2022 COLONOSCOPY DIAGNOSTIC COLONOSCOPY DIAGNOSTIC Endoscopy Routine Acute blood loss anemia Rectal bleeding 1 Occurrences starting 12/25/2021 until 12/25/2022 [facility] Work Phone: Comment on above: 1 Occurrences starting 12/25/2021 until 12/25/2022 End: 12-30-2022 COLONOSCOPY DIAGNOSTIC COLONOSCOPY DIAGNOSTIC Endoscopy Routine Other iron deficiency anemia Rectal bleeding 1 Occurrences starting 12/30/2021 until 12/30/2022 [facility] Work Phone: Comment on above: 1 Occurrences starting 12/30/2021 until 12/30/2022 End: 04-12-2025 CT Chest WO contrast [employer] Work Phone: Comment on above: Once for 1 Occurrences starting 04/12/20 until 04/12/2025 Electrocardiogram EKG BIC 2019 3:36 PM EDT [facility] End: 01-22-2025 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 [employer] Work Phone: End: 10-19-2019 Hemodialysis inpatient Hemodialysis inpatient Dialysis Routine One Time for 1 Occurrences starting 10/19/2019 until 10/19/2019 [employer] Work Phone: Comment on above: One Time for 1 Occurrences starting 09/28 until 10/19/2019 End: 10-21-2019 Hemodialysis inpatient Hemodialysis inpatient Dialysis Routine One Time for 1 Occurrences starting 10/21/2019 until 10/21/2019 [employer] Work Phone: Comment on above: One Time for 1 Occurrences starting 09/28 until 10/21/2019 End: 10-23-2019 Hemodialysis inpatient Hemodialysis inpatient Dialysis Routine One Time for 1 Occurrences starting 10/23/2019 until 10/23/2019 [employer] Work Phone: Comment on above: One Time for 1 Occurrences starting 09/28 until 10/23/2019 Hemodialysis inpatient Hemodialy sis inpatient Dialysis Routine Every MWF until discontinued starting 10/27/2019 [employer] Work Phone: Comment on above: Every MWF until discontinued starting End: 01-26-2025 Hemoglobin [Mass/volume] in Blood [facility] Work Phone: End: 02-21-2025 Legionella and Streptococcus Urine Antigen [facility] Work Phone: Magnesium [Mass/volu me] in Serum or Plasma MAGNESIUM Lab Routine Daily until discontinued starting 10/23/2019, 5 completed [facility] Work Phone: Comment on above: Daily until discontinued starting 2019, 5 completed End: 01-22-2025 Peripheral blood smear [facility] End: 01-22-2025 Peripheral Blood Smear [facility] Peripheral blood smear [facility] Peripheral Blood Smear [facility] Phosphate [Mass/volu me] in Serum or Plasma Phosphorus Lab Routine Daily until discontinued starting 10/23/2019, 5 completed [facility] Work Phone: Comment on above: Daily until discontinued starting 2019, 5 completed End: 09-15-2021 Special treatments and procedures [facility] Work Phone: Comment on above: Once for 1 Occurrences starting 09/15/20 until 09/15/2021 End: 10-26-2019 Surgical Pathology Surgical Pathology Lab STAT Once for 1 Occurrences starting 10/26/2019 until 10/26/2019 [facility] Work Phone: Comment on above: Once for 1 Occurrences starting 10/26/19 until 10/26/2019 Surgical Pathology Surgical Path ology Lab STAT 10/26/2019 10:00 AM EST [facility] Work Phone: End: 02-21-2025 Urine Hold Cup [facility] [place] [facility] Immunizations Immunization Date Immunization Notes Care Provider [facility] 05-20-2020 hepatitis B vaccine, unspecified formulation Jese Frank MD Work Phone: [facility] 01-19-2020 hepatitis B vaccine, unspecified formulation Jese Frank MD Work Phone: [facility] 12-19-2019 hepatitis B vaccine, unspecified formulation Jese Frank MD Work Phone: [facility] 11-15-2019 hepatitis B vaccine, unspecified formulation Jese Frank MD Work Phone: [facility] Payers Date Payer Category Payer Self-pay 2023 Medicare HMO [id number] 2023 Medicare [id number] 2022 Medicaid HMO [id number] 2022 Medicaid [id number] 2020 Medicaid [id number] 2020 Medicare [id number] 2020 Medicare [id number] 2020 Unknown [id number] 2020 Medicaid MEDICAID [facility] MEDICAID [id number] 2020-Present Medicaid [id number] 2019 Medicare MEDICARE MEDICAR E A AND B [id number] 2019-Present [place], [place] Medicare [id number] Unknown [id number] Unknown [id number] Unknown [id number] Unknown [id number] Unknown [id number] Unknown [id number] Unknown [id number] Unknown [id number] Unknown [id number] Unknown [id number] Unknown [id number] Unknown [id number] Unknown [id number] Unknown [id number] Social History Date Type Detail Facility Start: 1993 End: 03-15-2025 Tobacco smoking status NCIS Current every day smoker [facility] Start: 1993 History of tobacco use Cigarette Smoker [employer] Work Phone: Start: 03-13-2020 End: 03-13-2025 Cigarettes smoked current (pack per day) - Reported [employer] Work Phone: Start: 03-13-2020 End: 03-15-2025 Tobacco use and exposure [facility] Start: 03-13-2020 End: 08-16-2023 Alcohol intake Current drinker of alcohol (finding) [employer] Work Phone: Start: 1965 Sex Assigned At Not on file [employer] Work Phone: Start: 12-15-2021 End: 05-01-2023 Exposure to SARS-CoV-2 (event) Not sure [facility] Start: 10-19-2019 Alcohol Comment on weekends [facility] Work Phone: Start: 12-25-2021 End: 04-17-2025 Alcohol intake Ex-drinker (finding) [facility] Start: 1965 Sex Assigned At Male [facility] Start: 05-01-2023 End: 03-13-2025 Alcohol Use Disorder Identification Test - Consumption [AUDIT-C] [facility] How often to you hav e a drink containing alcohol? Never [facility] How many standard dr inks containing alcohol do you have on a typical day? Patient does not drink [facility] Start: 11-15-2020 Gender identity Identifies as male gender (finding) [facility] Start: 08-10-2020 Sexual orientation Heterosexual (finding) [facility] Start: 04-27-2022 Sex Male (finding) [facility] History of tobacco use Passive smoker [facility] Start: 10-13-2024 Tobacco Comment Started at 28, 3 PPD, tapered down to 1 PPD in 2020 after quitting drinking. 10/27/24 [facility] Tobacco smoking stat us NCIS Unknown if ever smoked [facility] Work Phone: Start: 02-20-2025 Tobacco smoking status NHIS Ex-smoker [facility] Start: 1993 History of tobacco use Current smoker [facility] How often do you nee d to have someone help you when you read instructions, pamphlets, or other written material from your doctor or pharmacy [SILS] Sometimes [facility] Has the [employer], or [employer] threatened to shut off services in your home in past 12Mo No [facility] Do you feel stress - tense, restless, nervous, or anxious, or unable to sleep at night because your mind is troubled all the time - these days [OSQ] To some extent [facility] (I/We) worried wheth er (my/our) food would run out before (I/we) got money to buy more. Never true [facility] Medical Equipment Procedure Code Equipment Code Equipment Origin al Text Equipment Identifier Dates [id number] Start: 10-12-2024 [id number] Start: 10-09-2024 [id number] Start: 10-14-2024 [id number] Start: 10-14-2024 [id number] Start: 10-14-2024 [id number] Start: 10-14-2024 [id number] Start: 10-14-2024 [id number] Start: 10-14-2024 [id number] Start: 10-14-2024 [id number] Start: 11-03-2024 [id number] Start: 01-30-2025 Functional Status Date Assessment Result Facility 03-13-2025 Total score [AUDIT-C] 0 03/13/20 8:25 AM EDT Karo Péerz RN [facility] Clinical Notes 10-24-2019 to 04-17-2025 Sarina Granado RN - 04/17/2025 1:25 PM EDTCblack Granado RN - 04/17/2025 1:25 PM Nydia Palencia RN - 04/17/2025 10:13 AM EDTDischarge InstructionsAttachmentsDischarge Instructions Note Date & Type Note Facility 04-17-2025 Emergency department Note Report called to [facility]. [facility] 04-17-2025 Emergency department Note Report called to [facility]. PIV placed, blood collected for lab work, pt states it hurts and he does not want an PIV left in, If I leave it he will rip it out. PIV Dc'd documented in this encounter [facility] 04-17-2025 Hospital Discharg e steven Solares MD - 04/17/2025 10:58 AM EDT [...] Do When Your INR Is Too High ([place])documented in this encounter [facility] 04-17-2025 Emergency department Note PIV placed, blood collected for lab work, pt states it hurts and he does not want an PIV left in, If I leave it he will rip it out. PIV Dc'd [facility] 04-11-2025 Note At this time patient s appointment is cancelled due to insurance being a HMO, there is no referral on file. Provided fax number once received will contact to schedule. Please advise [facility] 04-11-2025 Telephone encount er Note At this time patients appointment is cancelled due to insurance being a HMO, there is no referral on file. Provided fax number once received will contact to schedule. Please advise [facility] 04-11-2025 Miscellaneous Notes Formattin g of this [...] Medication Name: n/a documented in this encounter [facility] 04-11-2025 Telephone encount er Note Scheduled next avail with Dr. Mata. [facility] 04-11-2025 Telephone encount er Note Name of Caller: Sabino Contact Reason for Appointment: Sabino requesting to schedule patient appointment for podiatry. Please advise. Office Name: Ortho Medication Refills need, if any: n/a Medication Name: n/a [facility] 04-09-2025 Emergency department Note Consuelo Johnson here to transport pt back to facility. [facility] 04-09-2025 Emergency department Note Consuelo Johnson here [...] to the emergency department via EMS from [facility] for evaluation of hyperkalemia. Patient [...] who presents to the emergency department from [facility] with concerns for hyperkalemia. Patient reports they [...] signs. FINAL IMPRESSION 1. ESRD on hemodialysis ([facility]) ([facility]) 2. Contusion of dorsum of right hand DISPOSITION Discharge 04/09/2025 01:35:38 PM Shared decision making preformed. PATIENT REFERRED TO: [facility] ED [address] [place] [phone] As needed, If symptoms worsen (Comment: [...] History: Diagnosis Date Acute renal failure (ARF) ([facility]) 10/19/2019 Anemia 12/30/2021 Calcification of abdominal aorta ([facility]) 10/08/202309/[address] abd Diverticulosis 10/08/2023 ESRD on hemodialysis ([facility]) ([facility]) 10/26/2019 Hemodialysis patient ([facility]) ([facility]) HTN (hypertension) 12/01/2022 Hypertension IgA nephropathy IgA [...] Performed by Bob Watson MD at [facility] Cardiac Cath/EP Lab CARDIAC CATHETERIZATION Bilateral 11/01/2024 Performed by Bob Watson MD at [facility] Cardiac Cath/EP Lab CARDIAC CATHETERIZATION N/A 11/01/2024 Performed by Bob Watson MD at [facility] Cardiac Cath/EP Lab COLONOSCOPY N/A 01/24/2025 Performed by Chadd Davis MD at [facility] ENDOSCOPY FISTULAGRAM (HISTORICAL) Left 09/15/2021 LEFT UPPER ARM HX AV FISTULA CREATION IR EMBOLIZATION 10/14/2024 IR EMBOLIZATION 10/14/2024 [facility] SPECIAL PROCEDURES IR FISTULAGRAM 08/07/2022 IR [...] 0 min Stress: Stress Concern Present (02/21/2025) [employer] - Occupational Stress Questionnaire Feeling of Stress : To some extent Social Connections: Unknown (02/21/2025) Social Connection and Isolation Panel [NHANES] Frequency of Communication with Friends and Family: More than three times a week Frequency of Social Gatherings with Friends and Family: Patient declined Attends Confucianism Services: Patient declined Active Member of Club[employer] [...] PA-C 04/09/25 1400 documented in this encounter [facility] 04-09-2025 Hospital Discharg e instructions Yari Santos [...] change or worsen. documented in this encounter [facility] 04-09-2025 Physician Emergen cy department Note EMERGENCY [...] to the emergency department via EMS from [facility] for evaluation of hyperkalemia. Patient [...] who presents to the emergency department from [facility] with concerns for hyperkalemia. Patient reports they [...] signs. FINAL IMPRESSION 1. ESRD on hemodialysis ([facility]) ([facility]) 2. Contusion of dorsum of right hand DISPOSITION Discharge 04/09/2025 01:35:38 PM Shared decision making preformed. PATIENT REFERRED TO: [facility] [address] [facility] [phone] As needed, If symptoms worsen [...] History: Diagnosis Date Acute renal failure (ARF) ([facility]) 10/19/2019 Anemia 12/30/2021 Calcification of abdominal aorta ([facility]) 10/08/202309/[address] abd Diverticulosis 10/08/2023 ESRD on hemodialysis ([facility]) ([facility]) 10/26/2019 Hemodialysis patient ([facility]) ([facility]) HTN (hypertension) 12/01/2022 Hypertension IgA nephropathy IgA nephropathy determined by biopsy of kidney 10/26/2019 Missed vaccination due to patient refusal 10/08/2023 Has a number of non-scientific based beliefs which interfere with his understanding and acceptance of the medical benefit of vaccination. Nonrheumatic aortic valve stenosis 10/08/2023 Paroxysmal A-fib ([facility]) ([facility]) 08/18/2023 Tobacco abuse 10/08/2023 [2] Past Surgical History: Procedure Laterality Date APPENDECTOMY CARDIAC CATHETERIZATION N/A 10/09/2024 Performed by Bob Watson MD at [facility] Cardiac Cath/EP Lab CARDIAC CATHETERIZATION Bilateral 11/01/2024 Performed by Bob Watson MD at [facility] Cardiac Cath/EP Lab CARDIAC CATHETERIZATION N/A 11/01/2024 Performed by Bob Watson MD at [facility] Cardiac Cath/EP Lab COLONOSCOPY N/A 01/24/2025 Performed by Chadd Davis MD at [facility] ENDOSCOPY FISTULAGRAM (HISTORICAL) Left 09/15/2021 LEFT UPPER ARM HX AV FISTULA CREATION IR EMBOLIZATION 10/14/2024 IR EMBOLIZATION 10/14/2024 [facility] SPECIAL PROCEDURES IR FISTULAGRAM 08/07/2022 IR [...] 0 min Stress: Stress Concern Present (02/21/2025) [employer] - Occupational Stress Questionnaire Feeling of Stress : To some extent Social Connections: Unknown (02/21/2025) Social Connection and Isolation Panel [NHANES] Frequency of Communication with Friends and Family: More than three times a week Frequency of Social Gatherings with Friends and Family: Patient declined Attends Confucianism Services: Patient declined Active Member of Club[employer] [...] Year: No Yari Santos PA-C 04/09/25 1400 [facility] 04-05-2025 Hospital Discharg e instructions Barbara Mckeon [...] follow-up as recommended. documented in this encounter [facility] 04-05-2025 Nurse Note Patient Name: Jun Snyder Patient : 1965 Acct: [id number] Date of Admission: 04/05/2025 Room/Bed: Code Status: [...] (0) 3 Regular None (Room air) Clear;Diminished Yoder;Ecchymosis Warm;Dry Soft Present pt consents to dialysis [...] - Before each treatment: Dialysis Machine No.: [id number] RO Machine Number: [id number] Dialyzer Lot No.: [id number] Tubing Lot Number: [id number] All Connections Secure: Yes Venous Parameters Set: Yes Arterial Parameters Set: Yes NS Bag: Yes Saline Line Double Clamped: Yes Dialyzer: Nipro Prime Volume (mL): 200 mL RO Machine Number: [id number] RO Machine Log Sheet Completed: Yes Machine Alarm Self Test: Completed, Passed (1351) (04/05/25 1351) Air Foam Detector: Tested, Proper Function Extracorporeal Circuit Tested for Integrity: Yes Machine Conductivity: 13.6 Manual Conductivity: 13.6 Manual Ph: 7 Bleach Test (Neg): Yes Bath Temperature: 36 C (96.8 F) Conductivity Meter Serial #: [id number] Machine Functioning Alarm Free? Yes Dialysis Bath: K+ (Potassium): 2 Ca+ (Calcium): 2.5 Na+ (Sodium): 137 HCO3 (Bicarb): 35 Bicarbonate Concentrate Lot No.: [id number] Acid Concentrate Lot No.: [id number] Chlorine Testing - Before each treatment and every 4 hours: Time On: 1403 Treatment Goal: 2L Weight Height: 177.8 cm (5' 10") (04/05/25 1015) Weight: 66.7 kg (147 lb) (07/10/25 1015) BMI (Calculated): 21.09 (04/05/25 1015) 1st [...] pt alert, no complaints, uf removal 2247 07/10/25 1703 250 mL/min -- -- -- -- [...] Active Problem List Diagnosis Anemia Paroxysmal A-fib ([facility]) (HCC) HTN (hypertension) ESRD on hemodialysis ([facility]) ([facility]) IgA nephropathy determined by biopsy of kidney Diverticulosis Nonrheumatic aortic valve stenosis Calcification of abdominal aorta ([facility]) Missed vaccination due to patient refusal Tobacco [...] Tracheostomy care (HCC) [Z43.0] Pulmonary embolism (HCC) MCC (current) use of antibiotics Complication of tracheostomy (CMS/HCC) (HCC) BRBPR (bright red blood per rectum) Hemoptysis SOB (shortness of breath) Moderate malnutrition (CMS/HCC) (HCC) Shortness of breath [3] T [facility] 04-05-2025 Nurse Note Patient Name: Jun Snyder Patient : 1965 Acct: [id number] Date of Admission: 04/05/2025 Room/Bed: Code Status: [...] (0) 3 Regular None (Room air) Clear;Diminished Yoder;Ecchymosis Warm;Dry Soft Present pt consents to dialysis [...] - Before each treatment: Dialysis Machine No.: [id number] RO Machine Number: [id number] Dialyzer Lot No.: [id number] Tubing Lot Number: [id number] All Connections Secure: Yes Venous Parameters Set: Yes Arterial Parameters Set: Yes NS Bag: Yes Saline Line Double Clamped: Yes Dialyzer: Nipro Prime Volume (mL): 200 mL RO Machine Number: [id number] RO Machine Log Sheet Completed: Yes Machine Alarm Self Test: Completed, Passed (1351) (04/05/25 1351) Air Foam Detector: Tested, Proper Function Extracorporeal Circuit Tested for Integrity: Yes Machine Conductivity: 13.6 Manual Conductivity: 13.6 Manual Ph: 7 Bleach Test (Neg): Yes Bath Temperature: 36 C (96.8 F) Conductivity Meter Serial #: [id number] Machine Functioning Alarm Free? Yes Dialysis Bath: K+ (Potassium): 2 Ca+ (Calcium): 2.5 Na+ (Sodium): 137 HCO3 (Bicarb): 35 Bicarbonate Concentrate Lot No.: [id number] Acid Concentrate Lot No.: [id number] Chlorine Testing - Before each treatment and [...] Active Problem List Diagnosis Anemia Paroxysmal A-fib ([facility]) ([facility]) HTN (hypertension) ESRD on hemodialysis ([facility]) ([facility]) IgA nephropathy determined by biopsy of kidney Diverticulosis Nonrheumatic aortic valve stenosis Calcification of abdominal aorta ([facility]) Missed vaccination due to patient refusal Tobacco abuse Alcohol use disorder in remission Atrial flutter, unspecified type ([facility]) RSV (acute bronchiolitis due to respiratory syncytial virus) Aortic stenosis Upper GI bleed S/P AVR Acute hypoxic respiratory failure ([facility]) Acute encephalopathy Pneumoperitoneum Gastric ulceration Severe malnutrition ([facility]/HCC) ([facility]) Pleural effusion Peritonitis due to fungus ([facility]) History of abdominal surgery Leg DVT (deep venous thromboembolism), acute, left (HCC) Ischemic ulcer of toe of left foot, limited to breakdown of skin ([facility]) Tracheostomy dependence ([facility]) Leukocytosis Decubitus ulcer of sacral region, unstageable ([facility]) Pneumonia of both lungs due to methicillin susceptible Staphylococcus aureus (MSSA) ([facility]) Sacral osteomyelitis ([facility]/HCC) ([facility]) Acute respiratory failure with hypoxia ([facility]) [J96.01] Tracheostomy care ([facility]) [Z43.0] Pulmonary embolism ([facility]) MCC (current) use of antibiotics Complication of tracheostomy ([facility]/HCC) ([facility]) BRBPR (bright red blood per rectum) Hemoptysis SOB (shortness of breath) Moderate malnutrition ([facility]/HCC) ([facility]) Shortness of breath [3] documented in this encounter [facility] 04-05-2025 Emergency department Note Dialysis at bedside. [facility] 04-05-2025 Emergency department Note Dialysis at bedside. [...] provider for clarification. Dieter Villegas MD 04/05/25 0349 Pt here to the ER via EMS [...] and get vitals. documented in this encounter [facility] 04-05-2025 Miscellaneous Notes Formattin g of this note might be different from the original. Noted Spoke with patient's nurse from [facility]. Patient's nurse stated will need to cancel today's appointment. Nurse stated Patient was sent to [facility] [place] [facility] for tachycardia. Nurse stated can not complete dialysis with patient's tachycardia. Nurse stated Sabino who scheduled appointments will call the office at a later time to reschedule patient's appointment. FYI to provider. documented in this encounter [facility] 04-05-2025 Telephone encount er Note Noted [facility] Work Phone: 04-05-2025 Emergency department Note Pt has no complaints at this time. [facility] 04-05-2025 Emergency department Triage note Pt here [...] to hook pt up and get vitals. T [facility] 04-05-2025 Physician Emergen cy department Note This [...] for clarification. Dieter Villegas MD 04/05/25 1329 [facility] 04-05-2025 Telephone encount er Note Spoke with patient's nurse from [facility]. Patient's nurse stated will need to cancel today's appointment. Nurse stated Patient was sent to [place] [facility] for tachycardia. Nurse stated can not complete dialysis with patient's tachycardia. Nurse stated Sabino who scheduled appointments will call the office at a later time to reschedule patient's appointment. FYI to provider. [facility] 03-26-2025 Telephone encount er Note 3rd attempt unable to speak to Sabino she's not in the office at them moment. Left message to call the office back to schedule [facility] 03-26-2025 Miscellaneous Notes Formattin g of this note might be different from the original. 3rd attempt unable to speak to Sabino she's not in the office at them moment. Left message to call the office back to schedule 2nd attempt called and spoke to the Alyssa barroso Nurse for the patient at the facility [...] this? Thank you documented in this encounter [facility] 03-26-2025 Telephone encount er Note Sabino has been notified the visit can not be virtual [facility] 03-26-2025 Miscellaneous Notes Formattin g of this note might be different from the original. Sabino has been notified the visit can not be virtual Name of Caller: SabinoMitzy Trangjosemanuel walsh Cutler Contact Reason for Appointment: Change 04/05/25 hospital follow up to a vv. Please call and advise. Office Name: [facility] Neurology Cindy documented in this encounter [facility] 03-26-2025 Telephone encount er Note Name of Caller: Bobbi Moncada Contact Reason for Appointment: Change 04/05/25 hospital follow up to a vv. Please call and advise. Office Name: [facility] Neurology Cindy [facility] 03-21-2025 Nurse Note Educated pt on importance of prescribed medications. Pt still refused. [facility] 03-21-2025 Nurse Note Educated pt on importance of prescribed medications. Pt still refused. Patient Name: Jun Snyder Patient : 1965 Acct: [id number] Date of Admission: 03/13/2025 [facility] [...] - Before each treatment: Dialysis Machine No.: [id number] RO Machine Number: [id number] Dialyzer Lot No.: [id number] Tubing Lot Number: [id number] All Connections Secure: Yes Venous Parameters Set: Yes Arterial Parameters Set: Yes NS Bag: Yes Saline Line Double Clamped: Yes Dialyzer: Nipro Prime Volume (mL): 200 mL RO Machine Number: [id number] RO Machine Log Sheet Completed: Yes Machine Alarm Self Test: Completed, Passed (03/20/25 1145) Air Foam Detector: Tested, Proper Function, pH Reading Extracorporeal Circuit Tested for Integrity: Yes Machine Conductivity: 13.8 Manual Conductivity: 13.8 Manual Ph: 7 Bleach Test (Neg): Yes Bath Temperature: 36 C (96.8 F) Conductivity Meter Serial #: [id number] Machine Functioning Alarm Free? Yes Dialysis Bath: K+ (Potassium): 2 Ca+ (Calcium): 2.5 Na+ (Sodium): 135 HCO3 (Bicarb): 35 Chlorine Testing - Before each treatment and every 4 hours: Time On: 1216 Time Off: 1516 Treatment Goal: 2L Weight Height: 177.8 cm (5' 10") (03/14/25 1617) Weight: 69.8 kg (153 lb 12.8 oz) (03/20/25 0422) BMI (Calculated): 22.07 (03/20/25 0422) 1st check: [...] Other (Comment) (to inform patient arrival from [place] emergency room and need for orders) Provider [...] Active Problem List Diagnosis Anemia Paroxysmal A-fib ([facility]) ([facility]) HTN (hypertension) ESRD on hemodialysis ([facility]) ([facility]) IgA nephropathy determined by biopsy of kidney Diverticulosis Nonrheumatic aortic valve stenosis Calcification of abdominal aorta ([facility]) Missed vaccination due to patient refusal Tobacco abuse Alcohol use disorder in remission Atrial flutter, unspecified type ([facility]) RSV (acute bronchiolitis due to respiratory syncytial virus) Aortic stenosis Upper GI bleed S/P AVR Acute hypoxic respiratory failure ([facility]) Acute encephalopathy Pneumoperitoneum Gastric ulceration Severe malnutrition ([facility]) ([facility]) Pleural effusion Peritonitis due to fungus ([facility]) History of abdominal surgery Leg DVT (deep venous thromboembolism), acute, left ([facility]) Ischemic ulcer of toe of left foot, limited to breakdown of skin ([facility]) Tracheostomy dependence ([facility]) Leukocytosis Decubitus ulcer of sacral region, unstageable ([facility]) Pneumonia of both lungs due to methicillin susceptible Staphylococcus aureus (MSSA) ([facility]) Sacral osteomyelitis ([facility]) ([facility] Acute respiratory failure with hypoxia ([facility]) [J96.01] Tracheostomy care ([facility]) [Z43.0] Pulmonary embolism ([facility]) long term care pharmacist (current) use of antibiotics Complication of tracheostomy ([facility]) ([facility]) BRBPR (bright red blood per rectum) Hemoptysis SOB (shortness of breath) Moderate malnutrition ([facility]) ([facility]) [3] heparin, 5-30 Units/kg/hr, Last Rate: 20 Units/kg/hr (03/20/25 1328) Wound vac suction failing-pt requesting wound vac removed for now. Black foam dressing removed and wound packed with saline-soaked gauze covered with DSD Pt adamantly refusing telemetry at this time, ripped off monitor and threw to the floor Patient Name: Jun Snyder Patient : 1965 Acct: [id number] Date of Admission: 03/13/2025 [facility] [...] - Before each treatment: Dialysis Machine No.: [id number] RO Machine Number: [id number] Dialyzer Lot No.: [id number] Tubing Lot Number: [id number] All Connections Secure: Yes Venous Parameters Set: Yes Arterial Parameters Set: Yes NS Bag: Yes Saline Line Double Clamped: Yes Dialyzer: Nipro Prime Volume (mL): 200 mL RO Machine Number: [id number] RO Machine Log Sheet Completed: Yes Machine Alarm Self Test: Completed, Passed (03/17/25 0803) Air Foam Detector: Tested, Proper Function, pH Reading Extracorporeal Circuit Tested for Integrity: Yes Machine Conductivity: 13.6 Manual Conductivity: 13.6 Manual Ph: 7 Bleach Test (Neg): Yes Bath Temperature: 36 C (96.8 F) Conductivity Meter Serial #: [id number] Machine Functioning Alarm Free? Yes Dialysis Bath: [...] Other (Comment) (to inform patient arrival from [place] emergency room and need for orders) Provider [...] Problem List Diagnosis Anemia Paroxysmal A-fib (CMS/HCC) ([facility]) HTN (hypertension) ESRD on hemodialysis ([facility]/HCC) ([facility]) IgA nephropathy determined by biopsy of kidney Diverticulosis Nonrheumatic aortic valve stenosis Calcification of abdominal aorta ([facility]) Missed vaccination due to patient refusal Tobacco abuse Alcohol use disorder in remission Atrial flutter, unspecified type ([facility]) RSV (acute bronchiolitis due to respiratory syncytial virus) Aortic stenosis Upper GI bleed S/P AVR Acute hypoxic respiratory failure ([facility]) Acute encephalopathy Pneumoperitoneum Gastric ulceration Severe malnutrition (CMS/HCC) ([facility]) Pleural effusion Peritonitis due to fungus ([facility]) History of abdominal surgery Leg DVT (deep venous thromboembolism), acute, left ([facility]) Ischemic ulcer of toe of left foot, limited to breakdown of skin ([facility]) Tracheostomy dependence ([facility]) Leukocytosis Decubitus ulcer of sacral region, unstageable ([facility]) Pneumonia of both lungs due to methicillin susceptible Staphylococcus aureus (MSSA) ([facility]) Sacral osteomyelitis (CMS/HCC) (HCC) Acute respiratory failure with hypoxia ([facility]) [J96.01] Tracheostomy care ([facility]) [Z43.0] Pulmonary embolism ([facility]) long term care pharmacist (current) use of antibiotics Complication of tracheostomy ([facility]/HCC) ([facility]) BRBPR (bright red blood per rectum) Hemoptysis SOB (shortness of breath) Moderate malnutrition ([facility]CC) ([facility]) [3] heparin, 5-30 Units/kg/hr Patient Name: Jun Snyder Patient : 1965 Acct: [id number] Date of Admission: 03/13/2025 Room[facility]Bed: [facility] [...] - Before each treatment: Dialysis Machine No.: [id number] RO Machine Number: [id number] Dialyzer Lot No.: [id number] Tubing Lot Number: [id number] All Connections Secure: Yes Venous Parameters Set: Yes Arterial Parameters Set: Yes NS Bag: Yes Saline Line Double Clamped: Yes Dialyzer: Nipro Prime Volume (mL): 200 mL RO Machine Number: [id number] RO Machine Log Sheet Completed: Yes Machine Alarm Self Test: Completed, Passed (03/15/25 1215) Air Foam Detector: Tested, Proper Function, pH Reading Extracorporeal Circuit Tested for Integrity: Yes Machine Conductivity: 13.8 Manual Conductivity: 13.7 Manual Ph: 7 Bleach Test (Neg): Yes Bath Temperature: 36 C (96.8 F) Conductivity Meter Serial #: [id number] Machine Functioning Alarm Free? Yes Dialysis Bath: [...] Other (Comment) (to inform patient arrival from [place] emergency room and need for orders) Provider [...] Active Problem List Diagnosis Anemia Paroxysmal A-fib ([facility]) ([facility]) HTN (hypertension) ESRD on hemodialysis ([facility]) ([facility]) IgA nephropathy determined by biopsy of kidney Diverticulosis Nonrheumatic aortic valve stenosis Calcification of abdominal aorta ([facility]) Missed vaccination due to patient refusal Tobacco abuse Alcohol use disorder in remission Atrial flutter, unspecified type ([facility]) RSV (acute bronchiolitis due to respiratory syncytial virus) Aortic stenosis Upper GI bleed S/P AVR Acute hypoxic respiratory failure ([facility]) Acute encephalopathy Pneumoperitoneum Gastric ulceration Severe malnutrition ([facility]) ([facility]) Pleural effusion Peritonitis due to fungus ([facility]) History of abdominal surgery Leg DVT (deep venous thromboembolism), acute, left ([facility]) Ischemic ulcer of toe of left foot, limited to breakdown of skin ([facility]) Tracheostomy dependence ([facility]) Leukocytosis Decubitus ulcer of sacral region, unstageable ([facility]) Pneumonia of both lungs due to methicillin susceptible Staphylococcus aureus (MSSA) ([facility]) Sacral osteomyelitis ([facility]) ([facility] Acute respiratory failure with hypoxia ([facility]) [J96.01] Tracheostomy care ([facility]) [Z43.0] Pulmonary embolism ([facility]) long term care pharmacist (current) use of antibiotics Complication of tracheostomy ([facility]) ([facility]) BRBPR (bright red blood per rectum) Hemoptysis SOB (shortness of breath) Moderate malnutrition ([facility]) ([facility]) [3] Wound Care consulted for Pressure Injury Prevention. Pt's Kee score= 14 on 03/13 Pt's pressure points assessed. Pt's Heels, Back, Elbows, Occiput and ears all intact. Yoder and healed area noted to occiput. Pt moving lower extremities well in bed against gravity. Pt currently followed by Wound ALTERATION INSPECTOR group for wounds to left toes 1-4 and sacrum with wound vac in place. For left toes, sacrum, and sacral wound vac assessments and treatment plan, please see Wound/Ostomy ALTERATION INSPECTOR progress notes. Instructed pt on pressure injury prevention and importance of turning/postioning every 2hrs while in bed and every 15 min while sitting in chair. Instructed on use and care of waffle chair cushion. Verbalized understanding. Prevention Measures in place, including: [place] sheet with pillows/wedges, Heels elevated off bed on pillows, Zinc/Moisture Barrier ointment (obtained), Waffle chair cushion (obtained for pt). Skin Care precaution order set in place. Dietitian consult order placed d/t wounds. PT/OT consult in place. Will continue to follow pt. Please Vocera for any questions or concerns. Yari Pelletier RN Patient Name: Jun Snyder Patient : 1965 Acct: [id number] Date of Admission: 03/13/2025 Room[facility]Bed[facility] [...] - Before each treatment: Dialysis Machine No.: [id number] RO Machine Number: [id number] Dialyzer Lot No.: [id number] Tubing Lot Number: [id number] All Connections Secure: Yes Venous Parameters Set: Yes Arterial Parameters Set: Yes NS Bag: Yes Saline Line Double Clamped: Yes Dialyzer: Nipro Prime Volume (mL): 200 mL RO Machine Number: [id number] RO Machine Log Sheet Completed: Yes Machine Alarm Self Test: Completed, Passed (03/14/25 1135) Air Foam Detector: Tested, Proper Function, pH Reading Extracorporeal Circuit Tested for Integrity: Yes Machine Conductivity: 13.7 Manual Conductivity: 13.6 Manual Ph: 7 Bleach Test (Neg): Yes Bath Temperature: 36 C (96.8 F) Conductivity Meter Serial #: [id number] Machine Functioning Alarm Free? Yes Dialysis Bath: K+ (Potassium): 3 Ca+ (Calcium): 2.5 Na+ (Sodium): 135 HCO3 (Bicarb): 35 Chlorine Testing - Before each treatment and every 4 hours: Time On: 1237 Time Off: 1537 Treatment Goal: 1L Weight Height: 177.8 cm (5' 10") (03/13/25 1654) Weight: 66.8 kg (147 lb 3.2 oz) (03/14/25322) BMI (Calculated): 21.12 (03/14/25 032) 1st check: [...] -- -- 110 -- -- -- -- 06/17/25 1957 144/94 36.3 C (97.4 F) Temporal 114 19 100 % -- -- 03/13/251653 141/93 36.3 C (97.3 F) Temporal 115 [...] Other (Comment) (to inform patient arrival from [place] emergency room and need for orders) Provider [...] Active Problem List Diagnosis Anemia Paroxysmal A-fib ([facility] ([facility]) HTN (hypertension) ESRD on hemodialysis ([facility]) ([facility]) IgA nephropathy determined by biopsy of kidney Diverticulosis Nonrheumatic aortic valve stenosis Calcification of abdominal aorta ([facility]) Missed vaccination due to patient refusal Tobacco abuse Alcohol use disorder in remission Atrial flutter, unspecified type ([facility]) RSV (acute bronchiolitis due to respiratory syncytial virus) Aortic stenosis Upper GI bleed S/P AVR Acute hypoxic respiratory failure ([facility]) Acute encephalopathy Pneumoperitoneum Gastric ulceration Severe malnutrition ([facility]) ([facility]) Pleural effusion Peritonitis due to fungus (HCC) [...] (CMS/HCC) (HCC) Acute respiratory failure with hypoxia ([facility]) [J96.01] Tracheostomy care ([facility]) [Z43.0] Pulmonary embolism ([facility]) long term care pharmacist (current) use of antibiotics Complication of tracheostomy (CMS/HCC) (HCC) BRBPR (bright red blood per rectum) Hemoptysis SOB (shortness of breath) [3] Removed wound vac that patient arrived to 5w from [facility] pictures of all wound taken on rover and saved to chart [facility] DSD applied to sacral wound documented in this encounter [facility] 03-21-2025 Note Formatting of this n ote might be different from the original. MAR, Labs & Discharge med list transmitted to [facility] via [facility] per [facility] request. [facility] 03-21-2025 Note Formatting of this n ote might be different from the original. MAR, Labs & Discharge med [facility] Hospital via [facility] per TCC request. [facility] 03-21-2025 Miscellaneous Notes Formattin g of this note might be different from the original. MAR, Labs & Discharge med list transmitted to [facility] via [facility] per [facility] request. Transport requested in Roundtrip. Awaiting time confirmation. Confirmed pickup time of 5:00PM by transport company Consuelo Mitchell at phone number . Location of facility drop off is [facility]. Facility notified via Careport, Kaity Rivera notified on secure chat. Care Management Progress Note Short Medical why still here: Heparin gtt stopped today. . INR 2.9 today. Getting Coumadin. Refusing to work with therapy. They would like to skill him if able. Planned Discharge Disposition: Penitentiary/Residential Care Barriers/Today we still Wait: Administering IV [...] Coumadin. INR 1.9 today Planned Discharge Disposition: Penitentiary/Residential Care Barriers/Today we still Wait: Clinical stability [...] When stable plan is to return to [facility].. . Length of Stay (Days): 6 [...] toes. Anticipate discharge back to [facility] soon. . Length of Stay [...] When stable is a bed hold at [facility]. . Length of Stay (Days): 2 [...] therapies are following. Wants to return to [facility]. Is a bed hold, but if they can skill him they would like to.. Length of Stay (Days): 1 GMLOS: No GMLOS Documented Referral placed to [facility] Return - [facility] via [facility] per TCC request. Await review and response regarding ability to accept. TCC notified. Problem: Knowledge Deficit Goal: Patient/family/caregiver demonstrates understanding of disease process, treatment plan, medications, and discharge instructions Outcome: Progressing Problem: Potential for Compromised Skin Integrity Goal: Skin Integrity is Maintained or Improved Outcome: Progressing documented in this encounter [facility] 03-21-2025 Note Formatting of this n ote might be different from the original. Transport requested in Roundtrip. Awaiting time confirmation. Confirmed pickup time of 5:00PM by transport [employer] at phone number . Location of facility drop off is [facility]. Facility notified [facility], Kaity Rivera notified on secure chat. [facility] 03-21-2025 Note Formatting of this n ote might be different from the original. Transport requested in Roundtrip. Awaiting time confirmation. Confirmed pickup time of 5:00PM by transport company Consuelo Mitchell at phone number . Location of facility drop off is [facility]. Facility notified via [facility], Kaity Willoughby Fast notified on secure chat. [facility] 03-21-2025 Note [facility] course Narrative Discharge [...] Klebsiella pneumonia with lung abscess presented to [facility] ED with worsening shortness of breath. He [...] Complexity: follow up within 7-14 calendar days (16339) [x] Severe Complexity: follow up within 7 calendar days (60783) FOLLOW UP TESTING, PENDING RESULTS OR REFERRALS AT TRANSITIONAL CARE VISIT: [] Yes [x] No PENDING STUDIES: None DISPOSITION: [facility] (Non-Skilled) FACILITY/HOME CARE AGENCY NAME: [facility] Follow up [address] [place] [address] [place] [address] Follow up INSTRUCTIONS TO MA/SW: [...] 03/21/2025, 12:07 PM documented in this encounter [facility] 03-21-2025 History of Presen t illness Narrative [...] Klebsiella pneumonia with lung abscess presented to [facility] ED with worsening shortness of breath. He [...] MD Division of Hospital Medicine Inpatient Medical Services/[facility] [1] Past Medical History: Diagnosis Date Acute renal failure (ARF) ([facility]) 10/19/2019 Anemia 12/30/2021 Calcification of abdominal aorta ([facility]) 10/08/202309/[address] abd Diverticulosis 10/08/2023 ESRD on hemodialysis ([facility]) ([facility]) 10/26/2019 Hemodialysis patient ([facility]) ([facility]) HTN (hypertension) 12/01/2022 Hypertension IgA nephropathy IgA nephropathy determined by biopsy of kidney 10/26/2019 Missed vaccination due to patient refusal 10/08/2023 Has a number of non-scientific based beliefs which interfere with his understanding and acceptance of the medical benefit of vaccination. Nonrheumatic aortic valve stenosis 10/08/2023 Paroxysmal A-fib ([facility]) ([facility]) 08/18/2023 Tobacco abuse 10/08/2023 [2] Lidocaine, 1 [...] History: Diagnosis Date Acute renal failure (ARF) ([facility]) 10/19/2019 Anemia 12/30/2021 Calcification of abdominal aorta ([facility]) 10/08/202309/[address] abd Diverticulosis 10/08/2023 ESRD on hemodialysis ([facility]) ([facility]) 10/26/2019 Hemodialysis patient ([facility]) ([facility]) HTN (hypertension) 12/01/2022 Hypertension IgA nephropathy IgA nephropathy determined by biopsy of kidney 10/26/2019 Missed vaccination due to patient refusal 10/08/2023 Has a number of non-scientific based beliefs which interfere with his understanding and acceptance of the medical benefit of vaccination. Nonrheumatic aortic valve stenosis 10/08/2023 Paroxysmal A-fib ([facility]) ([facility]) 08/18/2023 Tobacco abuse 10/08/2023 Images from the original note were not included. PHYSICAL THERAPY [facility] Name/MRN: Jair Snyder ([id number]) Date: 03/21/2025 Chart review completed this date. [...] Tay PT at 03/21/2025 2:58 PM EDT [facility] Anticoagulation Management Service ([facility]) Inpatient Warfarin [...] PLT [phone] Recent Labs 03/21/25 06 INR 2.9* Date INR Dose 03/21 2.9 [...] Odonnell RP, PharmD [facility] is available daily [phone] via [employer]. If no response on [employer] Chat then please page [phone]. [1] Past Medical History: Diagnosis Date Acute renal failure (ARF) ([facility]) 10/19/2019 Anemia 12/30/2021 Calcification of abdominal aorta (HCC) 10/08/202309/[address] abd Diverticulosis 10/08/2023 ESRD on hemodialysis ([facility]) ([facility]) 10/26/2019 Hemodialysis patient ([facility] ([facility]) HTN (hypertension) 12/01/2022 Hypertension IgA nephropathy IgA nephropathy determined by biopsy of kidney 10/26/2019 Missed vaccination due to patient refusal 10/08/2023 Has a number of non-scientific based beliefs which interfere with his understanding and acceptance of the medical benefit of vaccination. Nonrheumatic aortic valve stenosis 10/08/2023 Paroxysmal A-fib (CMS/HCC) (HCC) 08/18/2023 Tobacco abuse 10/08/2023 Nutrition Assessment Type [...] Klebsiella pneumonia with lung abscess presented to [facility] ED with worsening shortness of breath. He [...] Select supplement: Chocolate Ensure Plus High Protein 03/14/25180003/13/25 174 Adult diet Regular; Low Sodium (2 [...] (Aug 2024) % Weight Change (Calculated): -28.6 [place] Body Weight (lbs) (Calculated): 166 lbs [place] Body Weight (Kg) (Calculated): 75 kg % [place] Body Weight (Calculated): 88.6 % BMI (kg/m2) [...] Yasemin Ceron MS, RD, LD Contact: or [employer] Chat (wdew *[phone] from hospital phone) [1] Lidocaine, 1 patch, Topical, Daily metoprolol tartrate, 50 mg, Oral, BID pantoprazole, 40 mg, Oral, BID AC sevelamer carbonate, 800 mg, Oral, TID WC sodium zirconium cyclosilicate, 5 g, Oral, Daily [2] heparin, 5-30 Units/kg/hr, Last Rate: 20 Units/kg/hr (03/20/25 1643) [facility] Anticoagulation Management Service ([facility]) Inpatient Warfarin [...] 1.6 7.5 mg 03/18 1.5 5 mg 6/21 1.5 5 mg 03/16 1.7 2.5 mg [...] dose accordingly. 4. Warfarin is followed by [facility] outpatient. [facility] will manage inpatient and take over management once discharged from [facility]. Michael Koehler PharmD candidate 2025, staffed with Fatuma Odonnell PharmD, [facility] is available daily [phone] via [employer]. If no response on [employer] Chat then please page [phone]. [1] Past Medical History: Diagnosis Date Acute renal failure (ARF) ([facility]) 10/19/2019 Anemia 12/30/2021 Calcification of abdominal aorta ([facility]) 10/08/202309/[address] abd Diverticulosis 10/08/2023 ESRD on hemodialysis ([facility] ([facility]) 10/26/2019 Hemodialysis patient ([facility]) ([facility]) HTN (hypertension) 12/01/2022 Hypertension IgA nephropathy IgA nephropathy determined by biopsy of kidney 10/26/2019 Missed vaccination due to patient refusal 10/08/2023 Has a number of non-scientific based beliefs which interfere with his understanding and acceptance of the medical benefit of vaccination. Nonrheumatic aortic valve stenosis 10/08/2023 Paroxysmal A-fib ([facility]) ([facility]) 08/18/2023 Tobacco abuse 10/08/2023 Cosigned by Fatuma Odonnell RPh at 03/20/2025 10:38 AM EDT Hospitalist Progress Note Subjective: Admit Date: 03/13/2025 PCP: Leilani Troncoso Room#: [id number] A Chief complaint: Shortness of breath Brief Hospital course: Jun is a 59 y.o. male with past medical history of hypertension, IgA nephropathy, ESRD on HD, CAD, history of CABG, history of intracranial bleed, paroxysmal A-fib aortic stenosis, s/p mechanical valve replacement recent admission here from 02/20-03/05 for hemoptysis due to Klebsiella pneumonia with lung abscess presented to [facility] ED with worsening shortness of breath. He [...] MD Division of Hospital Medicine Inpatient Medical Services/[facility] [1] Past Medical History: Diagnosis Date Acute renal failure (ARF) ([facility]) 10/19/2019 Anemia 12/30/2021 Calcification of abdominal aorta ([facility]) 10/08/202309/[address] abd Diverticulosis 10/08/2023 ESRD on hemodialysis ([facility]) ([facility]) 10/26/2019 Hemodialysis patient ([facility]) ([facility]) HTN (hypertension) 12/01/2022 Hypertension IgA nephropathy IgA nephropathy determined by biopsy of kidney 10/26/2019 Missed vaccination due to patient refusal 10/08/2023 Has a number of non-scientific based beliefs which interfere with his understanding and acceptance of the medical benefit of vaccination. Nonrheumatic aortic valve stenosis 10/08/2023 Paroxysmal A-fib ([facility]) ([facility]) 08/18/2023 Tobacco abuse 10/08/2023 [2] Lidocaine, 1 [...] History: Diagnosis Date Acute renal failure (ARF) ([facility]) 10/19/2019 Anemia 12/30/2021 Calcification of abdominal aorta ([facility]) 10/08/202309/[address] abd Diverticulosis 10/08/2023 ESRD on hemodialysis ([facility]) ([facility]) 10/26/2019 Hemodialysis patient ([facility]) ([facility]) HTN (hypertension) 12/01/2022 Hypertension IgA nephropathy IgA nephropathy determined by biopsy of kidney 10/26/2019 Missed vaccination due to patient refusal 10/08/2023 Has a number of non-scientific based beliefs which interfere with his understanding and acceptance of the medical benefit of vaccination. Nonrheumatic aortic valve stenosis 10/08/2023 Paroxysmal A-fib (CMS/HCC) (HCC) 08/18/2023 Tobacco abuse 10/08/2023 [facility] Anticoagulation Management Service ([facility]) Inpatient Warfarin [...] candidate 2025, staffed with Fatuma Odonnell PharmD, [facility]JA is available daily [phone] via [employer]. If no response on Epic Chat then please page [phone]. [1] Past Medical History: Diagnosis Date Acute renal failure (ARF) ([facility]) 10/19/2019 Anemia 12/30/2021 Calcification of abdominal aorta ([facility]) 10/08/202309/[address] abd Diverticulosis 10/08/2023 ESRD on hemodialysis ([facility] ([facility]) 10/26/2019 Hemodialysis patient ([facility]) ([facility]) HTN (hypertension) 12/01/2022 Hypertension IgA nephropathy IgA nephropathy determined by biopsy of kidney 10/26/2019 Missed vaccination due to patient refusal 10/08/2023 Has a number of non-scientific based beliefs which interfere with his understanding and acceptance of the medical benefit of vaccination. Nonrheumatic aortic valve stenosis 10/08/2023 Paroxysmal A-fib ([facility]) ([facility]) 08/18/2023 Tobacco abuse 10/08/2023 Cosigned by Fatuma Odonnell RP at 03/19/2025 2:39 PM EDT Images from the original note were not included. [facility] Wound Care/NPWT Progress Note Jun [...] to follow Recommend to follow up at [facility] wound care center after hospital discharge. Any [...] History: Diagnosis Date Acute renal failure (ARF) ([facility]) 10/19/2019 Anemia 12/30/2021 Calcification of abdominal aorta ([facility]) 10/08/202309/[address] abd Diverticulosis 10/08/2023 ESRD on hemodialysis ([facility] ([facility]) 10/26/2019 Hemodialysis patient ([facility]) ([facility]) HTN (hypertension) 12/01/2022 Hypertension IgA nephropathy IgA nephropathy determined by biopsy of kidney 10/26/2019 Missed vaccination due to patient refusal 10/08/2023 Has a number of non-scientific based beliefs which interfere with his understanding and acceptance of the medical benefit of vaccination. Nonrheumatic aortic valve stenosis 10/08/2023 Paroxysmal A-fib ([facility]) ([facility]) 08/18/2023 Tobacco abuse 10/08/2023 [2] Past Surgical History: Procedure Laterality Date APPENDECTOMY CARDIAC CATHETERIZATION N/A 10/09/2024 Performed by Bob Watson MD at [facility] Cardiac Cath/EP Lab CARDIAC CATHETERIZATION Bilateral 11/01/2024 Performed by Bob Watson MD at [facility] Cardiac Cath/EP Lab CARDIAC CATHETERIZATION N/A 11/01/2024 Performed by Bob Watson MD at [facility] Cardiac Cath/EP Lab COLONOSCOPY N/A 01/24/2025 Performed by Chadd Davis MD at [facility] ENDOSCOPY FISTULAGRAM (HISTORICAL) Left 09/15/2021 LEFT UPPER ARM HX AV FISTULA CREATION IR EMBOLIZATION 10/14/2024 IR EMBOLIZATION 10/14/2024 [facility] SPECIAL PROCEDURES IR FISTULAGRAM 08/07/2022 IR [...] Note Subjective: Admit Date: 03/13/2025 PCP: Leilani Torncoso Room#: [id number] A Chief Complaint Patient presents with Shortness of Breath Pt arrived [facility] jail via EMS. Pt was starting dialysis and [...] Klebsiella pneumonia with lung abscess presented to [facility] [place] ED with worsening shortness of breath. He [...] in upper abdomen He was transferred from [facility] ED to [facility] due to bed availability Nephrology consulted, seen [...] [phone] BMP: Recent Labs 03/17/254603/18/2515803/19/25 0752 NA 141 139 137 K 3.9 [...] -1 to 2 days - Location -[facility] - Pending the following -clinical course, subtherapeutic INR, on bridging with heparin drip Total time spent (which include face to face and non face to face encounters) : 38.5 minutes Extended Emergency Contact Information Primary Emergency Contact: Omar Snyder Mobile Relation: Child Secondary Emergency Contact: Toma Mcneil Mobile Relation: Partner [employer] Annamarie Dawkins MD Division of Hospital Medicine Inpatient Medical Services/[facility] [1] Past Medical History: Diagnosis Date Acute renal failure (ARF) ([facility]) 10/19/2019 Anemia 12/30/2021 Calcification of abdominal aorta ([facility]) 10/08/202309/[address] abd Diverticulosis 10/08/2023 ESRD on hemodialysis ([facility]) ([facility]) 10/26/2019 Hemodialysis patient ([facility]) ([facility]) HTN (hypertension) 12/01/2022 Hypertension IgA nephropathy IgA nephropathy determined by biopsy of kidney 10/26/2019 Missed vaccination due to patient refusal 10/08/2023 Has a number of non-scientific based beliefs which interfere with his understanding and acceptance of the medical benefit of vaccination. Nonrheumatic aortic valve stenosis 10/08/2023 Paroxysmal A-fib ([facility] ([facility]) 08/18/2023 Tobacco abuse 10/08/2023 [2] Lidocaine, 1 [...] History: Diagnosis Date Acute renal failure (ARF) ([facility]) 10/19/2019 Anemia 12/30/2021 Calcification of abdominal aorta ([facility]) 10/08/202309/[address] abd Diverticulosis 10/08/2023 ESRD on hemodialysis ([facility]) ([facility]) 10/26/2019 Hemodialysis patient ([facility]) ([facility]) HTN (hypertension) 12/01/2022 Hypertension IgA nephropathy IgA nephropathy determined by biopsy of kidney 10/26/2019 Missed vaccination due to patient refusal 10/08/2023 Has a number of non-scientific based beliefs which interfere with his understanding and acceptance of the medical benefit of vaccination. Nonrheumatic aortic valve stenosis 10/08/2023 Paroxysmal A-fib ([facility]) ([facility]) 08/18/2023 Tobacco abuse 10/08/2023 Nephrology Progress Note [...] sacral wound. Wellington Nicole MD' Please call [phone] or message me through [employer] with any questions or concerns. Nephrology Progress [...] extremity edema Data: Labs: Recent Labs 03/16/2515403/17/257 03/18/25158 WBC 7.0 6.7 7.6 HGB 9.1* 10.0* [...] sacral wound. Wellington Nicole MD' Please call [phone] or message me through [employer] with any questions or concerns. Hospitalist Progress Note Subjective: Admit Date: 03/13/2025 PCP: Leilani Troncoso Room#: [id number] A Chief Complaint Patient presents with Shortness of Breath Pt arrived from jail via EMS. Pt was starting dialysis and [...] Klebsiella pneumonia with lung abscess presented to [facility] ED with worsening shortness of breath. He [...] in upper abdomen He was transferred from [facility] ED to [facility] due to bed availability Nephrology consulted, seen [...] Intake/Output Summary (Last 24 hours) at 03/18/2025 6819 Last data filed at 03/17/2025 1948 Gross [...] MD Division of Hospital Medicine Inpatient Medical Services/[facility] [1] Past Medical History: Diagnosis Date Acute renal failure (ARF) ([facility]) 10/19/2019 Anemia 12/30/2021 Calcification of abdominal aorta ([facility]) 10/08/202309/[address] abd Diverticulosis 10/08/2023 ESRD on hemodialysis ([facility]) ([facility]) 10/26/2019 Hemodialysis patient ([facility]) ([facility]) HTN (hypertension) 12/01/2022 Hypertension IgA nephropathy IgA nephropathy determined by biopsy of kidney 10/26/2019 Missed vaccination due to patient refusal 10/08/2023 Has a number of non-scientific based beliefs which interfere with his understanding and acceptance of the medical benefit of vaccination. Nonrheumatic aortic valve stenosis 10/08/2023 Paroxysmal A-fib ([facility] ([facility]) 08/18/2023 Tobacco abuse 10/08/2023 [2] Lidocaine, 1 [...] History: Diagnosis Date Acute renal failure (ARF) ([facility]) 10/19/2019 Anemia 12/30/2021 Calcification of abdominal aorta ([facility]) 10/08/202309/[address] abd Diverticulosis 10/08/2023 ESRD on hemodialysis ([facility]) ([facility]) 10/26/2019 Hemodialysis patient ([facility]) ([facility]) HTN (hypertension) 12/01/2022 Hypertension IgA nephropathy IgA nephropathy determined by biopsy of kidney 10/26/2019 Missed vaccination due to patient refusal 10/08/2023 Has a number of non-scientific based beliefs which interfere with his understanding and acceptance of the medical benefit of vaccination. Nonrheumatic aortic valve stenosis 10/08/2023 Paroxysmal A-fib ([facility] ([facility]) 08/18/2023 Tobacco abuse 10/08/2023 [facility] Anticoagulation Management Service ([facility]) Inpatient Warfarin [...] accordingly. 3. Warfarin is followed by [facility] outpatient. SAILAJA will manage inpatient and take over management once discharged from SNF. Darya Mireles RPh, PharmD, BCPS SAILAJA is available daily [phone] via [employer]. If no response on [employer] Chat then please page [phone]. [1] Past Medical History: Diagnosis Date Acute renal failure (ARF) ([facility]) 10/19/2019 Anemia 12/30/2021 Calcification of abdominal aorta ([facility]) 10/08/202309/[address] abd Diverticulosis 10/08/2023 ESRD on hemodialysis ([facility] ([facility]) 10/26/2019 Hemodialysis patient ([facility]) ([facility]) HTN (hypertension) 12/01/2022 Hypertension IgA nephropathy IgA nephropathy determined by biopsy of kidney 10/26/2019 Missed vaccination due to patient refusal 10/08/2023 Has a number of non-scientific based beliefs which interfere with his understanding and acceptance of the medical benefit of vaccination. Nonrheumatic aortic valve stenosis 10/08/2023 Paroxysmal A-fib ([facility] ([facility]) 08/18/2023 Tobacco abuse 10/08/2023 Hospitalist Progress Note Subjective: Admit Date: 03/13/2025 PCP: Leilani Troncoso Room#: [id number] A Chief Complaint Patient presents with Shortness of Breath Pt arrived from jail via EMS. Pt was starting dialysis and [...] Klebsiella pneumonia with lung abscess presented to [facility] [place] ED with worsening shortness of breath. He [...] in upper abdomen He was transferred from [facility] ED to [facility] due to bed availability Nephrology consulted, seen [...] MD Division of Hospital Medicine Inpatient Medical Services/[facility] [1] Past Medical History: Diagnosis Date Acute renal failure (ARF) (HCC) 10/19/2019 Anemia 12/30/2021 Calcification of abdominal aorta (HCC) 10/08/202309/[address] abd Diverticulosis 10/08/2023 ESRD on hemodialysis ([facility]) ([facility]) 10/26/2019 Hemodialysis patient ([facility]) ([facility]) HTN (hypertension) 12/01/2022 Hypertension IgA nephropathy IgA nephropathy determined by biopsy of kidney 10/26/2019 Missed vaccination due to patient refusal 10/08/2023 Has a number of non-scientific based beliefs which interfere with his understanding and acceptance of the medical benefit of vaccination. Nonrheumatic aortic valve stenosis 10/08/2023 Paroxysmal A-fib ([facility]) ([facility]) 08/18/2023 Tobacco abuse 10/08/2023 [2] Lidocaine, 1 patch, Topical, Daily metoprolol tartrate, 25 mg, Oral, q6h pantoprazole, 40 mg, Oral, BID AC sevelamer carbonate, 800 mg, Oral, TID WC sodium zirconium cyclosilicate, 5 g, Oral, Daily [3] PRN medications: acetaminophen OR acetaminophen, ipratropium-albuterol, melatonin, ondansetron ODT OR ondansetron, polyethylene glycol (PEG) 3350 [4] [5] Past Medical History: Diagnosis Date Acute renal failure (ARF) ([facility]) 10/19/2019 Anemia 12/30/2021 Calcification of abdominal aorta ([facility]) 10/08/202309/[address] abd Diverticulosis 10/08/2023 ESRD on hemodialysis ([facility]) ([facility]) 10/26/2019 Hemodialysis patient ([facility]) ([facility]) HTN (hypertension) 12/01/2022 Hypertension IgA nephropathy IgA nephropathy determined by biopsy of kidney 10/26/2019 Missed vaccination due to patient refusal 10/08/2023 Has a number of non-scientific based beliefs which interfere with his understanding and acceptance of the medical benefit of vaccination. Nonrheumatic aortic valve stenosis 10/08/2023 Paroxysmal A-fib ([facility]) ([facility]) 08/18/2023 Tobacco abuse 10/08/2023 Nephrology Progress Note [...] for dry gangrene and sacral wound. Wellington Bonnie, MD' Please call [phone] or message me through [employer] with any questions or concerns. [facility] Anticoagulation Management Service ([facility]) Inpatient Warfarin [...] heparin while INR is subtherapeutic. Darya Mireles RP, PharmD [facility] is available daily [phone] via [employer] Chat. If no response on [employer] Chat then please page [phone]. [1] Past Medical History: Diagnosis Date Acute renal failure (ARF) ([facility]) 10/19/2019 Anemia 12/30/2021 Calcification of abdominal aorta ([facility]) 10/08/202309/[address] abd Diverticulosis 10/08/2023 ESRD on hemodialysis ([facility]) ([facility]) 10/26/2019 Hemodialysis patient ([facility]) ([facility]) HTN (hypertension) 12/01/2022 Hypertension IgA nephropathy IgA nephropathy determined by biopsy of kidney 10/26/2019 Missed vaccination due to patient refusal 10/08/2023 Has a number of non-scientific based beliefs which interfere with his understanding and acceptance of the medical benefit of vaccination. Nonrheumatic aortic valve stenosis 10/08/2023 Paroxysmal A-fib ([facility]) ([facility]) 08/18/2023 Tobacco abuse 10/08/2023 Images from the original note were not included. OCCUPATIONAL THERAPY [facility] Initial Evaluation Name/MRN: Jair Snyder ([id number]) Evaluation Date: 03/16/2025 Date of : 1965 Admission Date: 03/13/2025 8:18 AM Age: 59 y.o. Room/Bed: [facility] A Discharge Recommendation: Intermediate Facility Assessment IMPRESSION: Pt presented with SOB, [...] Problem List Diagnosis Date Noted Moderate malnutrition ([facility]) ([facility]) 03/14/2025 SOB (shortness of breath) 03/13/2025 Severe malnutrition ([facility]) ([facility]) 02/21/2025 Hemoptysis 02/20/2025 Complication of tracheostomy ([facility]) ([facility]) 01/19/2025 [facility] (current) use of antibiotics 01/12/2025 Acute respiratory failure with hypoxia ([facility]) [J96.01] 01/08/2025 Tracheostomy care ([facility]) [Z43.0] 01/08/2025 Pulmonary embolism ([facility]) 01/08/2025 Sacral osteomyelitis ([facility]) ([facility]) 01/03/2025 Pneumonia of both lungs due to methicillin susceptible Staphylococcus aureus (MSSA) ([facility]) 01/01/2025 Leukocytosis 12/30/2024 Decubitus ulcer of sacral region, unstageable ([facility]) 12/30/2024 Peritonitis due to fungus ([facility]) 11/30/2024 History of abdominal surgery 11/30/2024 Leg DVT (deep venous thromboembolism), acute, left ([facility]) 11/30/2024 Ischemic ulcer of toe of left foot, limited to breakdown of skin ([facility]) 11/30/2024 Tracheostomy dependence ([facility]) 11/30/2024 Pleural effusion 11/28/2024 Gastric ulceration 2024 Atrial flutter, unspecified type ([facility]) 10/03/2024 RSV (acute bronchiolitis due to respiratory syncytial virus) 10/03/2024 Diverticulosis 10/08/2023 Nonrheumatic aortic valve stenosis 10/08/2023 Calcification of abdominal aorta ([facility]) 10/08/2023 Missed vaccination due to patient refusal 10/08/2023 Tobacco abuse 10/08/2023 Alcohol use disorder in remission 10/08/2023 Paroxysmal A-fib ([facility]) ([facility]) 08/18/2023 HTN (hypertension) 12/01/2022 ESRD on hemodialysis ([facility]) ([facility]) 10/26/2019 IgA nephropathy determined by biopsy of [...] of Care supervision is transferred to a [facility] Therapy Services Occupational Therapist. Goals and/or treatment plan was established in collaboration with patient/family/other representatives. [1] Past Medical History: Diagnosis Date Acute renal failure (ARF) ([facility]) 10/19/2019 Anemia 12/30/2021 Calcification of abdominal aorta ([facility]) 10/08/202309/[address] abd Diverticulosis 10/08/2023 ESRD on hemodialysis ([facility]) ([facility]) 10/26/2019 Hemodialysis patient ([facility]) ([facility]) HTN (hypertension) 12/01/2022 Hypertension IgA nephropathy IgA nephropathy determined by biopsy of kidney 10/26/2019 Missed vaccination due to patient refusal 10/08/2023 Has a number of non-scientific based beliefs which interfere with his understanding and acceptance of the medical benefit of vaccination. Nonrheumatic aortic valve stenosis 10/08/2023 Paroxysmal A-fib ([facility]) ([facility]) 08/18/2023 Tobacco abuse 10/08/2023 [2] Past Surgical History: Procedure Laterality Date APPENDECTOMY CARDIAC CATHETERIZATION N/A 10/09/2024 Performed by Bob Watson MD at [facility] Cardiac Cath/EP Lab CARDIAC CATHETERIZATION Bilateral 11/01/2024 Performed by Bob Watson MD at [facility] Cardiac Cath/EP Lab CARDIAC CATHETERIZATION N/A 11/01/2024 Performed by Bob Watson MD at [facility] Cardiac Cath/EP Lab COLONOSCOPY N/A 01/24/2025 Performed by Chadd Davis MD at [facility] ENDOSCOPY FISTULAGRAM (HISTORICAL) Left 09/15/2021 LEFT UPPER ARM HX AV FISTULA CREATION IR EMBOLIZATION 10/14/2024 IR EMBOLIZATION 10/14/2024 [facility] SPECIAL PROCEDURES IR FISTULAGRAM 08/07/2022 IR FISTULAGRAM 08/07/2022 [facility] IR IMAGING TONSILLECTOMY (HISTORICAL) Hospitalist Progress Note Subjective: Admit Date: 03/13/2025 PCP: Leilani Troncoso Room#: [id number] A Chief Complaint Patient presents with Shortness of Breath Pt arrived [facility] EMS. Pt was starting dialysis and [...] Klebsiella pneumonia with lung abscess presented to [place] ED with worsening shortness of breath. He [...] in upper abdomen He was transferred from [place] ED to [facility] due to bed availability Nephrology consulted, seen [...] 11 9 LIVER PROFILE: Recent Labs 03/15/2543303/16/25 0155 AST 49* 47* ALT 14 13 BILITOT 0.8 0.9 ALKPHOS 201* 194* PROT 7.6 7.3 PT/INR: Recent Labs 03/15/2543303/16/25 0155 PROTIME 17.9* 17.3* INR 1.7* 1.7* [...] MD Division of Hospital Medicine Inpatient Medical Services/[facility] [1] Past Medical History: Diagnosis Date Acute renal failure (ARF) ([facility]) 10/19/2019 Anemia 12/30/2021 Calcification of abdominal aorta ([facility]) 10/08/202309/[address] abd Diverticulosis 10/08/2023 ESRD on hemodialysis ([facility]) ([facility]) 10/26/2019 Hemodialysis patient ([facility]) ([facility]) HTN (hypertension) 12/01/2022 Hypertension IgA nephropathy IgA nephropathy determined by biopsy of kidney 10/26/2019 Missed vaccination due to patient refusal 10/08/2023 Has a number of non-scientific based beliefs which interfere with his understanding and acceptance of the medical benefit of vaccination. Nonrheumatic aortic valve stenosis 10/08/2023 Paroxysmal A-fib ([facility]) ([facility]) 08/18/2023 Tobacco abuse 10/08/2023 [2] Lidocaine, 1 [...] History: Diagnosis Date Acute renal failure (ARF) ([facility]) 10/19/2019 Anemia 12/30/2021 Calcification of abdominal aorta ([facility]) 10/08/202309/[address] abd Diverticulosis 10/08/2023 ESRD on hemodialysis ([facility]) ([facility]) 10/26/2019 Hemodialysis patient ([facility]) ([facility]) HTN (hypertension) 12/01/2022 Hypertension IgA nephropathy IgA nephropathy determined by biopsy of kidney 10/26/2019 Missed vaccination due to patient refusal 10/08/2023 Has a number of non-scientific based beliefs which interfere with his understanding and acceptance of the medical benefit of vaccination. Nonrheumatic aortic valve stenosis 10/08/2023 Paroxysmal A-fib ([facility]) ([facility]) 08/18/2023 Tobacco abuse 10/08/2023 Nephrology Progress Note [...] with any questions or concerns Bree Molina PASSENGER FLAGMAN ALCOHOL STILL OPERATOR A-G ALTERATION INSPECTOR [facility] [phone] Pt seen and examined independently by me. I reviewed with PASSENGER FLAGMAN-ALCOHOL STILL OPERATOR the medical history and the findings on physical examination. I discussed the patient s diagnosis and concur with the treatment plan as documented in his note. Please call [phone] or message me through [employer] with any questions or concerns. Images from the original note were not included. [facility] Wound VAC Progress Note Jun [...] with IV pain medication, per staff nurse midwife, prior to wound VAC dressing change. 1 [...] apply Betadine and allow to dry, leave [employer] daily and PRN Centrella Pro Plus bed Reposition q2hrs Incontinent checks q2hrs Nutritional support Wound Care to follow Recommend to follow up at [facility] wound care center after hospital discharge. Any [...] History: Diagnosis Date Acute renal failure (ARF) ([facility]) 10/19/2019 Anemia 12/30/2021 Calcification of abdominal aorta ([facility]) 10/08/202309/[address] abd Diverticulosis 10/08/2023 ESRD on hemodialysis ([facility]) ([facility]) 10/26/2019 Hemodialysis patient ([facility]) ([facility]) HTN (hypertension) 12/01/2022 Hypertension IgA nephropathy IgA nephropathy determined by biopsy of kidney 10/26/2019 Missed vaccination due to patient refusal 10/08/2023 Has a number of non-scientific based beliefs which interfere with his understanding and acceptance of the medical benefit of vaccination. Nonrheumatic aortic valve stenosis 10/08/2023 Paroxysmal A-fib ([facility]) ([facility]) 08/18/2023 Tobacco abuse 10/08/2023 [2] Past Surgical History: Procedure Laterality Date APPENDECTOMY CARDIAC CATHETERIZATION N/A 10/09/2024 Performed by Bob Watson MD at [facility] Cardiac Cath/EP Lab CARDIAC CATHETERIZATION Bilateral 11/01/2024 Performed by Bob Watson MD at [facility] Cardiac Cath/EP Lab CARDIAC CATHETERIZATION N/A 11/01/2024 Performed by Bob Watson MD at [facility] Cardiac Cath/EP Lab COLONOSCOPY N/A 01/24/2025 Performed by Chadd Davis MD at [facility] ENDOSCOPY FISTULAGRAM (HISTORICAL) Left 09/15/2021 LEFT UPPER ARM HX AV FISTULA CREATION IR EMBOLIZATION 10/14/2024 IR EMBOLIZATION 10/14/2024 [facility] SPECIAL PROCEDURES IR FISTULAGRAM 08/07/2022 IR FISTULAGRAM 08/07/2022 [facility] IR IMAGING TONSILLECTOMY (HISTORICAL) [3] Family History [...] Gill DO at 03/19/2025 4:44 PM EDT [facility] Anticoagulation Management Service ([facility]) Inpatient Warfarin [...] medications= none Labs: Recent Labs 03/15/25 0434 03/16/25154 HGB 9.2* 9.1* HCT 30.1* 30.2* PLT 392 372 Recent Labs 03/16/25154 INR 1.7* Date INR Dose 03/16 1.7 2.5 mg 03/15 1.7 2.5 mg 03/14 --- 1.5mg 03/13 1.7 3mg Assessment/Plan: 1. Subtherapeutic INR yesterday, received boost dose. Will give 2.5mg today--higher than home dose 2. Monitor for s/s of bleeding and drug interactions. Will adjust dose accordingly 3. Will facilitate f/u at [facility] upon discharge Kvng Dugan, Natali 2024 Candidate [facility] is available daily [phone] via [employer] Chat. If no response on [employer] Chat then please page [phone]. [1] Past Medical History: Diagnosis Date Acute renal failure (ARF) ([facility]) 10/19/2019 Anemia 12/30/2021 Calcification of abdominal aorta ([facility]) 10/08/202309/[address] abd Diverticulosis 10/08/2023 ESRD on hemodialysis ([facility] ([facility]) 10/26/2019 Hemodialysis patient ([facility]) ([facility]) HTN (hypertension) 12/01/2022 Hypertension IgA nephropathy IgA nephropathy determined by biopsy of kidney 10/26/2019 Missed vaccination due to patient refusal 10/08/2023 Has a number of non-scientific based beliefs which interfere with his understanding and acceptance of the medical benefit of vaccination. Nonrheumatic aortic valve stenosis 10/08/2023 Paroxysmal A-fib ([facility]) ([facility]) 08/18/2023 Tobacco abuse 10/08/2023 Cosigned by Tiffanie Dial RP at 03/16/2025 10:57 AM EDT Patient currently off unit, will attempt smoking cessation counseling at a later date. Hospitalist Progress Note Subjective: Admit Date: 03/13/2025 PCP: Leilani Troncoso Room#: [id number] A Chief Complaint Patient presents with Shortness of Breath Pt arrived from jail via EMS. Pt was starting dialysis and [...] Klebsiella pneumonia with lung abscess presented to [place] ED with worsening shortness of breath. He [...] in upper abdomen He was transferred from [place] ED to [facility] due to bed availability Nephrology consulted, seen [...] MD Division of Hospital Medicine Inpatient Medical Services/[facility] [1] Past Medical History: Diagnosis Date Acute renal failure (ARF) ([facility]) 10/19/2019 Anemia 12/30/2021 Calcification of abdominal aorta ([facility]) 10/08/202309/[address] abd Diverticulosis 10/08/2023 ESRD on hemodialysis ([facility]) ([facility]) 10/26/2019 Hemodialysis patient ([facility]) ([facility]) HTN (hypertension) 12/01/2022 Hypertension IgA nephropathy IgA nephropathy determined by biopsy of kidney 10/26/2019 Missed vaccination due to patient refusal 10/08/2023 Has a number of non-scientific based beliefs which interfere with his understanding and acceptance of the medical benefit of vaccination. Nonrheumatic aortic valve stenosis 10/08/2023 Paroxysmal A-fib ([facility]) ([facility]) 08/18/2023 Tobacco abuse 10/08/2023 [2] Lidocaine, 1 [...] History: Diagnosis Date Acute renal failure (ARF) ([facility]) 10/19/2019 Anemia 12/30/2021 Calcification of abdominal aorta ([facility]) 10/08/202309/[address] abd Diverticulosis 10/08/2023 ESRD on hemodialysis ([facility]) ([facility]) 10/26/2019 Hemodialysis patient ([facility]) ([facility]) HTN (hypertension) 12/01/2022 Hypertension IgA nephropathy IgA nephropathy determined by biopsy of kidney 10/26/2019 Missed vaccination due to patient refusal 10/08/2023 Has a number of non-scientific based beliefs which interfere with his understanding and acceptance of the medical benefit of vaccination. Nonrheumatic aortic valve stenosis 10/08/2023 Paroxysmal A-fib ([facility]) ([facility]) 08/18/2023 Tobacco abuse 10/08/2023 Nephrology Progress Note [...] any questions or concerns Bree Molina APRN ALCOHOL STILL OPERATOR A-G ALTERATION INSPECTOR [facility] [phone] Pt seen and examined independently by me. I reviewed with DEINA-SAMIA the medical history and the findings on physical examination. I discussed the patient s diagnosis and concur with the treatment plan as documented in his note. Please call [phone] or message me through [employer] with any questions or concerns. [facility] Anticoagulation Management Service ([facility]) Inpatient Warfarin [...] dose accordingly 3. Will facilitate f/u at [facility] upon discharge Kvng Dugan, Natali 2024 Candidate [facility] is available daily [phone] via [employer] Chat. If no response on [employer] Chat then please page [phone]. [1] Past Medical History: Diagnosis Date Acute renal failure (ARF) ([facility]) 10/19/2019 Anemia 12/30/2021 Calcification of abdominal aorta ([facility]) 10/08/202309/[address] abd Diverticulosis 10/08/2023 ESRD on hemodialysis ([facility]) ([facility]) 10/26/2019 Hemodialysis patient ([facility]) ([facility]) HTN (hypertension) 12/01/2022 Hypertension IgA nephropathy IgA nephropathy determined by biopsy of kidney 10/26/2019 Missed vaccination due to patient refusal 10/08/2023 Has a number of non-scientific based beliefs which interfere with his understanding and acceptance of the medical benefit of vaccination. Nonrheumatic aortic valve stenosis 10/08/2023 Paroxysmal A-fib ([facility]) ([facility]) 08/18/2023 Tobacco abuse 10/08/2023 Cosigned by Tiffanie Dial RPh at 03/15/2025 1:17 PM EDT Images from the original note were not included. [facility] Wound VAC Progress Note Jun [...] to follow Recommend to follow up at [facility] wound care center after hospital discharge. Any questions or concerns please secure chat "[facility] wound/ostomy". Thank you for the consult! [...] History: Diagnosis Date Acute renal failure (ARF) ([facility]) 10/19/2019 Anemia 12/30/2021 Calcification of abdominal aorta ([facility]) 10/08/202309/[address] abd Diverticulosis 10/08/2023 ESRD on hemodialysis ([facility]) ([facility]) 10/26/2019 Hemodialysis patient ([facility]) ([facility]) HTN (hypertension) 12/01/2022 Hypertension IgA nephropathy IgA nephropathy determined by biopsy of kidney 10/26/2019 Missed vaccination due to patient refusal 10/08/2023 Has a number of non-scientific based beliefs which interfere with his understanding and acceptance of the medical benefit of vaccination. Nonrheumatic aortic valve stenosis 10/08/2023 Paroxysmal A-fib ([facility]) ([facility]) 08/18/2023 Tobacco abuse 10/08/2023 [2] Past Surgical History: Procedure Laterality Date APPENDECTOMY CARDIAC CATHETERIZATION N/A 10/09/2024 Performed by Bob Watson MD at [facility] Cardiac Cath/EP Lab CARDIAC CATHETERIZATION Bilateral 11/01/2024 Performed by Bob Watson MD at [facility] Cardiac Cath/EP Lab CARDIAC CATHETERIZATION N/A 11/01/2024 Performed by Bob Watson MD at [facility] Cardiac Cath/EP Lab COLONOSCOPY N/A 01/24/2025 Performed by Chadd Davis MD at [facility] ENDOSCOPY FISTULAGRAM (HISTORICAL) Left 09/15/2021 LEFT UPPER ARM HX AV FISTULA CREATION IR EMBOLIZATION 10/14/2024 IR EMBOLIZATION 10/14/2024 [facility] SPECIAL PROCEDURES IR FISTULAGRAM 08/07/2022 IR [...] on 03/13/2025) 30 tablet 0 Cosigned by Ahsna Gill DO at 03/19/2025 4:44 PM EDT Images from the original note were not included. PHYSICAL THERAPY [facility] Initial Evaluation Name/MRN: Jair Snyder ([id number]) Evaluation Date: 03/14/2025 Date of : 1965 Admission Date: 03/13/2025 8:18 AM Age: 59 y.o. Room/Bed: W5-[facility]/[id number] A Discharge Recommendation: Intermediate Facility Equipment Needed: No Assessment IMPRESSION: Pt [...] SOB (shortness of breath) 03/13/2025 Severe malnutrition ([facility]) ([facility]) 02/21/2025 Hemoptysis 02/20/2025 Complication of tracheostomy ([facility]) ([facility]) 01/19/2025 [facility] (current) use of antibiotics 01/12/2025 Acute respiratory failure with hypoxia ([facility]) [J96.01] 01/08/2025 Tracheostomy care ([facility]) [Z43.0] 01/08/2025 Pulmonary embolism ([facility]) 01/08/2025 Sacral osteomyelitis ([facility]) ([facility]) 01/03/2025 Pneumonia of both lungs due to methicillin susceptible Staphylococcus aureus (MSSA) ([facility]) 01/01/2025 Leukocytosis 12/30/2024 Decubitus ulcer of sacral region, unstageable ([facility]) 12/30/2024 Peritonitis due to fungus ([facility]) 11/30/2024 History of abdominal surgery 11/30/2024 Leg DVT (deep venous thromboembolism), acute, left ([facility]) 11/30/2024 Ischemic ulcer of toe of left foot, limited to breakdown of skin ([facility]) 11/30/2024 Tracheostomy dependence ([facility]) 11/30/2024 Pleural effusion 11/28/2024 Gastric ulceration 2024 Atrial flutter, unspecified type ([facility]) 10/03/2024 RSV (acute bronchiolitis due to respiratory syncytial virus) 10/03/2024 Diverticulosis 10/08/2023 Nonrheumatic aortic valve stenosis 10/08/2023 Calcification of abdominal aorta ([facility]) 10/08/2023 Missed vaccination due to patient refusal 10/08/2023 Tobacco abuse 10/08/2023 Alcohol use disorder in remission 10/08/2023 Paroxysmal A-fib ([facility]) ([facility]) 08/18/2023 HTN (hypertension) 12/01/2022 ESRD on hemodialysis ([facility]) ([facility]) 10/26/2019 IgA nephropathy determined by biopsy of kidney 10/26/2019 BRBPR (bright red blood per rectum) 01/19/2025 Aortic stenosis 10/03/2024 Upper GI bleed 10/03/2024 S/P AVR 10/03/2024 Acute hypoxic respiratory failure ([facility]) 10/03/2024 Acute encephalopathy 10/03/2024 Pneumoperitoneum 10/03/2024 Anemia [...] awareness. Social/Functional History Pt has been at [facility] for rehab for the past ~1 [...] Score (No Stairs) : 15 [facility] Score: Walked 10 steps or more (i.e. [...] of Care supervision is transferred to a [facility] Therapy Services Physical Therapist. Goals and/or treatment plan was established in collaboration with patient/family/other representatives. [1] Past Medical History: Diagnosis Date Acute renal failure (ARF) ([facility]) 10/19/2019 Anemia 12/30/2021 Calcification of abdominal aorta ([facility]) 10/08/202309/[address] abd Diverticulosis 10/08/2023 ESRD on hemodialysis ([facility]) ([facility]) 10/26/2019 Hemodialysis patient ([facility]) ([facility]) HTN (hypertension) 12/01/2022 Hypertension IgA nephropathy IgA nephropathy determined by biopsy of kidney 10/26/2019 Missed vaccination due to patient refusal 10/08/2023 Has a number of non-scientific based beliefs which interfere with his understanding and acceptance of the medical benefit of vaccination. Nonrheumatic aortic valve stenosis 10/08/2023 Paroxysmal A-fib ([facility]) ([facility]) 08/18/2023 Tobacco abuse 10/08/2023 [2] Past Surgical History: Procedure Laterality Date APPENDECTOMY CARDIAC CATHETERIZATION N/A 10/09/2024 Performed by Bob Watson MD at [facility] Cardiac Cath/EP Lab CARDIAC CATHETERIZATION Bilateral 11/01/2024 Performed by Bob Watson MD at [facility] Cardiac Cath/EP Lab CARDIAC CATHETERIZATION N/A 11/01/2024 Performed by Bob Watson MD at [facility] Cardiac Cath/EP Lab COLONOSCOPY N/A 01/24/2025 Performed by Chadd Davis MD at [facility] ENDOSCOPY FISTULAGRAM (HISTORICAL) Left 09/15/2021 LEFT UPPER ARM HX AV FISTULA CREATION IR EMBOLIZATION 10/14/2024 IR EMBOLIZATION 10/14/2024 [facility] SPECIAL PROCEDURES IR FISTULAGRAM 08/07/2022 IR FISTULAGRAM 08/07/2022 [facility] IR IMAGING TONSILLECTOMY (HISTORICAL) Hospitalist Progress Note Subjective: Admit Date: 03/13/2025 PCP: Leilani Troncoso Room#: [id number] A Chief Complaint Patient presents with Shortness of Breath [facility]. Pt was starting dialysis and [...] Klebsiella pneumonia with lung abscess presented to [place] ED with worsening shortness of breath. He [...] in upper abdomen He was transferred from [place] ED to [facility] due to bed availability Nephrology consulted, seen [...] MD Division of Hospital Medicine Inpatient Medical Services/[facility] [1] Past Medical History: Diagnosis Date Acute renal failure (ARF) ([facility]) 10/19/2019 Anemia 12/30/2021 Calcification of abdominal aorta ([facility]) 10/08/202309/[address] abd Diverticulosis 10/08/2023 ESRD on hemodialysis ([facility]) ([facility]) 10/26/2019 Hemodialysis patient ([facility]) ([facility]) HTN (hypertension) 12/01/2022 Hypertension IgA nephropathy IgA nephropathy determined by biopsy of kidney 10/26/2019 Missed vaccination due to patient refusal 10/08/2023 Has a number of non-scientific based beliefs which interfere with his understanding and acceptance of the medical benefit of vaccination. Nonrheumatic aortic valve stenosis 10/08/2023 Paroxysmal A-fib ([facility]) ([facility]) 08/18/2023 Tobacco abuse 10/08/2023 [2] Lidocaine, 1 patch, Topical, Daily metoprolol tartrate, 25 mg, Oral, BID pantoprazole, 40 mg, Oral, BID AC sevelamer carbonate, 800 mg, Oral, TID WC sodium zirconium cyclosilicate, 5 g, Oral, Daily [3] PRN medications: acetaminophen OR acetaminophen, ipratropium-albuterol, melatonin, ondansetron ODT OR ondansetron, polyethylene glycol (PEG) 3350 [4] [5] Past Medical History: Diagnosis Date Acute renal failure (ARF) ([facility]) 10/19/2019 Anemia 12/30/2021 Calcification of abdominal aorta ([facility]) 10/08/202309/[address] abd Diverticulosis 10/08/2023 ESRD on hemodialysis ([facility]) ([facility]) 10/26/2019 Hemodialysis patient ([facility]) ([facility]) HTN (hypertension) 12/01/2022 Hypertension IgA nephropathy IgA nephropathy determined by biopsy of kidney 10/26/2019 Missed vaccination due to patient refusal 10/08/2023 Has a number of non-scientific based beliefs which interfere with his understanding and acceptance of the medical benefit of vaccination. Nonrheumatic aortic valve stenosis 10/08/2023 Paroxysmal A-fib ([facility]) ([facility]) 08/18/2023 Tobacco abuse 10/08/2023 [facility] Anticoagulation Management Service ([facility]) Inpatient Warfarin [...] dose accordingly 3. Will facilitate f/u at [facility] upon discharge Tiffanie Dial [facility], PharmD [facility] is available daily [phone] via [employer] Chat. If no response on [employer] Chat then please page [phone]. [1] Past Medical History: Diagnosis Date Acute renal failure (ARF) ([facility]) 10/19/2019 Anemia 12/30/2021 Calcification of abdominal aorta ([facility]) 10/08/202309/[address] abd Diverticulosis 10/08/2023 ESRD on hemodialysis ([facility]) ([facility]) 10/26/2019 Hemodialysis patient ([facility]) ([facility]) HTN (hypertension) 12/01/2022 Hypertension IgA nephropathy IgA nephropathy determined by biopsy of kidney 10/26/2019 Missed vaccination due to patient refusal 10/08/2023 Has a number of non-scientific based beliefs which interfere with his understanding and acceptance of the medical benefit of vaccination. Nonrheumatic aortic valve stenosis 10/08/2023 Paroxysmal A-fib (CMS/HCC) (HCC) 08/18/2023 Tobacco abuse 10/08/2023 documented in this encounter [facility] 03-21-2025 Note Formatting of this n ote might be different from the original. Care Management Progress Note Short Medical why still here: Heparin gtt stopped today. . INR 2.9 today. Getting Coumadin. Refusing to work with therapy. They would like to skill him if able. Planned Discharge Disposition: Penitentiary/Residential Care Barriers/Today we still Wait: Administering IV medications, Test results (comment) Length of Stay (Days): 8 GMLOS: 3.9 [facility] 03-21-2025 Note Formatting of this n ote might be different from the original. Care Management Progress Note Short Medical why still here: Heparin gtt stopped today. . INR 2.9 today. Getting Coumadin. Refusing to work with therapy. They would like to skill him if able. Planned Discharge Disposition: Penitentiary/Residential Care Barriers/Today we still Wait: Administering IV medications, Test results (comment) Length of Stay (Days): 8 GMLOS: 3.9 [facility] 03-21-2025 Plan of care note Problem: Knowledge [...] monitored and maintained or improved Outcome: Progressing [facility] 03-20-2025 Nurse Note Patient Name: Jun Snyder Patient : 1965 Acct: [id number] Date of Admission: 03/13/2025 [facility] [...] - Before each treatment: Dialysis Machine No.: [id number] RO Machine Number: [id number] Dialyzer Lot No.: [id number] Tubing Lot Number: [id number] [employer] Secure: Yes Venous Parameters Set: Yes Arterial Parameters Set: Yes NS Bag: Yes Saline Line Double Clamped: Yes Dialyzer: Nipro Prime Volume (mL): 200 mL RO Machine Number: [id number] RO Machine Log Sheet Completed: Yes Machine Alarm Self Test: Completed, Passed (03/20/25 1145) Air Foam Detector: Tested, Proper Function, pH Reading Extracorporeal Circuit Tested for Integrity: Yes Machine Conductivity: 13.8 Manual Conductivity: 13.8 Manual Ph: 7 Bleach Test (Neg): Yes Bath Temperature: 36 C (96.8 F) Conductivity Meter Serial #: [id number] Machine Functioning Alarm Free? Yes Dialysis Bath: [...] Other (Comment) (to inform patient arrival from [place] emergency room and need for orders) Provider [...] (CMS/HCC) (HCC) HTN (hypertension) ESRD on hemodialysis ([facility]) ([facility]) IgA nephropathy determined by biopsy of kidney Diverticulosis Nonrheumatic aortic valve stenosis Calcification of abdominal aorta (HCC) Missed vaccination due to patient refusal Tobacco abuse Alcohol use disorder in remission Atrial flutter, unspecified type (HCC) RSV (acute bronchiolitis due to respiratory syncytial virus) Aortic stenosis Upper GI bleed S/P AVR Acute hypoxic respiratory failure ([facility]) Acute encephalopathy Pneumoperitoneum Gastric ulceration Severe malnutrition (CMS/HCC) ([facility]) Pleural effusion Peritonitis due to fungus ([facility]) History of abdominal surgery Leg DVT (deep venous thromboembolism), acute, left ([facility]) Ischemic ulcer of toe of left foot, limited to breakdown of skin ([facility]) Tracheostomy dependence ([facility]) Leukocytosis Decubitus ulcer of sacral region, unstageable ([facility]) Pneumonia of both lungs due to methicillin susceptible Staphylococcus aureus (MSSA) ([facility]) Sacral osteomyelitis (CMS/HCC) ([facility]) Acute respiratory failure with hypoxia ([facility]) [J96.01] Tracheostomy care ([facility]) [Z43.0] Pulmonary embolism ([facility]) MCC (current) use of antibiotics Complication of tracheostomy ([facility]/HCC) ([facility]) BRBPR (bright red blood per rectum) Hemoptysis SOB (shortness of breath) Moderate malnutrition ([facility]/HCC) ([facility]) [3] heparin, 5-30 Units/kg/hr, Last Rate: 20 Units/kg/hr (03/20/25 1328) [facility] 03-20-2025 Note Formatting of this n ote might be different from the original. Care Management Progress Note Short Medical why still here: Heparin gtt bridging to Coumadin. INR 1.9 today Planned Discharge Disposition: Penitentiary/Residential Care Barriers/Today we still Wait: Clinical stability Length of Stay (Days): 7 GMLOS: 3.9 [facility] 03-20-2025 Note Formatting of this n ote might be different from the original. Care Management Progress Note Short Medical why still here: Heparin gtt bridging to Coumadin. INR 1.9 today Planned Discharge Disposition: Penitentiary/Residential Care Barriers/Today we still Wait: Clinical stability Length of Stay (Days): 7 GMLOS: 3.9 [facility] 03-20-2025 Plan of care note Problem: Knowledge [...] monitored and maintained or improved Outcome: Progressing [facility] 03-19-2025 Note Formatting of this n ote might be different from the original. Care Management Progress Note Continues on a Heparin gtt. Trying to bridge to Coumadin. INR 1.6 today. When stable plan is to return to [facility].. . Length of Stay (Days): 6 GMLOS: 3.9 T [facility] 03-19-2025 Note Formatting of this n ote might be different from the original. Care Management Progress Note Continues on a Heparin gtt. Trying to bridge to Coumadin. INR 1.6 today. When stable plan is to return to [facility].. . Length of Stay (Days): 6 GMLOS: 3.9 T [facility] 03-19-2025 Plan of care note Problem: Knowledge [...] monitored and maintained or improved Outcome: Progressing [facility] 03-19-2025 Plan of care note Problem: [...] monitored and maintained or improved Outcome: Progressing [facility] 03-19-2025 Nurse Note Wound vac suction failing-pt requesting wound vac removed for now. Black foam dressing removed and wound packed with saline-soaked gauze covered with DSD [facility] 03-19-2025 Nurse Note Pt adamantly refusing telemetry at this time, ripped off monitor and threw to the floor [facility] 03-18-2025 Note Problem: Pain - Adul t Goal: Verbalizes/displays adequate comfort level or baseline comfort level Outcome: Progressing Problem: Safety - Adult Goal: Free from fall injury Outcome: Progressing [facility] 03-18-2025 Plan of care note Problem: Pain - Adult Goal: Verbalizes/displays adequate comfort level or baseline comfort level Outcome: Progressing Problem: Safety - Adult Goal: Free from fall injury Outcome: Progressing [facility] 03-17-2025 Plan of care note Problem: Knowledge [...] monitored and maintained or improved Outcome: Progressing [facility] 03-17-2025 Note Problem: Pain - Adul t Goal: Verbalizes/displays adequate comfort level or baseline comfort level Outcome: Progressing Problem: Safety - Adult Goal: Free from fall injury Outcome: Progressing [facility] 03-17-2025 Plan of care note Problem: Pain - Adult Goal: Verbalizes/displays adequate comfort level or baseline comfort level Outcome: Progressing Problem: Safety - Adult Goal: Free from fall injury Outcome: Progressing [facility] 03-17-2025 Nurse Note Patient Name: Jun Snyder Patient : 1965 Acct: [id number] Date of Admission: 03/13/2025 [facility] [...] - Before each treatment: Dialysis Machine No.: [id number] RO Machine Number: [id number] Dialyzer Lot No.: [id number] Tubing Lot Number: [id number] [employer] Secure: Yes Venous Parameters Set: Yes Arterial Parameters Set: Yes NS Bag: Yes Saline Line Double Clamped: Yes Dialyzer: Nipro Prime Volume (mL): 200 mL RENY Machine Number: [id number] RO Machine Log Sheet Completed: Yes Machine Alarm Self Test: Completed, Passed (03/17/25 0803) Air Foam Detector: Tested, Proper Function, pH Reading Extracorporeal Circuit Tested for Integrity: Yes Machine Conductivity: 13.6 Manual Conductivity: 13.6 Manual Ph: 7 Bleach Test (Neg): Yes Bath Temperature: 36 C (96.8 F) Conductivity Meter Serial #: [id number] Machine Functioning Alarm Free? Yes Dialysis Bath: [...] Other (Comment) (to inform patient arrival from [place] emergency room and need for orders) Provider [...] Active Problem List Diagnosis Anemia Paroxysmal A-fib ([facility]) ([facility]) HTN (hypertension) ESRD on hemodialysis ([facility]) ([facility]) IgA nephropathy determined by biopsy of kidney Diverticulosis Nonrheumatic aortic valve stenosis Calcification of abdominal aorta ([facility]) Missed vaccination due to patient refusal Tobacco abuse Alcohol use disorder in remission Atrial flutter, unspecified type ([facility]) RSV (acute bronchiolitis due to respiratory syncytial virus) Aortic stenosis Upper GI bleed S/P AVR Acute hypoxic respiratory failure ([facility]) Acute encephalopathy Pneumoperitoneum Gastric ulceration Severe malnutrition ([facility]) ([facility]) Pleural effusion Peritonitis due to fungus ([facility]) History of abdominal surgery Leg DVT (deep venous thromboembolism), acute, left (HCC) Ischemic ulcer of toe of left foot, limited to breakdown of skin ([facility]) Tracheostomy dependence ([facility]) Leukocytosis Decubitus ulcer of sacral region, unstageable ([facility]) Pneumonia of both lungs due to methicillin susceptible Staphylococcus aureus (MSSA) ([facility]) Sacral osteomyelitis ([facility]) ([facility] Acute respiratory failure with hypoxia ([facility]) [J96.01] Tracheostomy care ([facility]) [Z43.0] Pulmonary embolism ([facility]) long term care pharmacist (current) use of antibiotics Complication of tracheostomy ([facility]) ([facility]) BRBPR (bright red blood per rectum) Hemoptysis SOB (shortness of breath) Moderate malnutrition ([facility]) ([facility]) [3] heparin, 5-30 Units/kg/hr [facility] 03-16-2025 Plan of care note Problem: Knowledge Deficit Goal: Patient/family/caregiver demonstrates understanding of disease process, treatment plan, medications, and discharge instructions Outcome: Progressing Problem: Potential for Compromised Skin Integrity Goal: Nutritional status is improving Outcome: Progressing T [facility] 03-16-2025 Plan of care note Problem: Knowledge [...] Goal: Assess Nutritional Intake Outcome: Progressing T [facility] 03-16-2025 Note Formatting of this n ote might be different from the original. Care Management Progress Note Going to dialysis today. Refusing surgery for gangrenous toes. Anticipate discharge back to [facility] soon. . Length of Stay (Days): 3 GMLOS: 3.9 [facility] 03-16-2025 Note Formatting of this n ote might be different from the original. Care Management Progress Note Going to dialysis today. Refusing surgery for gangrenous toes. Anticipate discharge back to ECF soon. . Length of Stay (Days): 3 GMLOS: 3.9 [facility] 03-16-2025 Note Care Management Prog ress Note Going to dialysis today. Refusing surgery for gangrenous toes. Anticipate discharge back to ECF soon. . Length of Stay (Days): 3 GMLOS: 3.9 [facility] 03-15-2025 Note Formatting of this n ote might be different from the original. ELIA reviewed chart. Copy of DPOA found in electronic chart naming Omar connell as agent. Care Management Return to Hospital Readmission questionnaire- N/A- pt form ECF. [facility] 03-15-2025 Note Formatting of this n ote might be different from the original. ELIA reviewed chart. Copy of DPOA found in electronic chart naming Omar connell as agent. Care Management Return to Hospital Readmission questionnaire- N/A- pt form ECF. [facility] 03-15-2025 Note ELIA reviewed chart. Copy of DPOA found in electronic chart naming Omar connell as agent. Care Management Return to Hospital Readmission questionnaire- N/A- pt form ECF. [facility] 03-15-2025 Consult note Associated Order (s): Inpatient consult to Vascular Surgery--[facility]; Gangrenous toes noted on first 4 toes on left lower extremity, please evaluate Images from the original note were not included. Inpatient consult to Vascular Surgery--[facility]; Gangrenous toes noted on first [...] 0 min Stress: Stress Concern Present (02/21/2025) [employer] - Occupational Stress Questionnaire Feeling of Stress : To some extent Social Connections: Unknown (02/21/2025) Social Connection and Isolation Panel [NHANES] Frequency of Communication with Friends and Family: More than three times a week Frequency of Social Gatherings with Friends and Family: Patient declined Attends Confucianism Services: Patient declined Active Member of Clubs [...] Department of Surgery General Surgery Resident Pager: [phone] PAGING / [employer] Secure Chat: From 6a-6p (-s): Epic Secure [...] This note may have been dictated using [employer] Practice Edition and/or [employer] Voice Recognition Feature. The document was proofread; however, unrecognized voice recognition expert witness errors may be present. [1] Past Medical History: Diagnosis Date Acute renal failure (ARF) ([facility]) 10/19/2019 Anemia 12/30/2021 Calcification of abdominal aorta (HCC) 10/08/202309/[address] abd Diverticulosis 10/08/2023 ESRD on hemodialysis ([facility]) ([facility]) 10/26/2019 Hemodialysis patient ([facility]) ([facility]) HTN (hypertension) 12/01/2022 Hypertension IgA nephropathy IgA nephropathy determined by biopsy of kidney 10/26/2019 Missed vaccination due to patient refusal 10/08/2023 Has a number of non-scientific based beliefs which interfere with his understanding and acceptance of the medical benefit of vaccination. Nonrheumatic aortic valve stenosis 10/08/2023 Paroxysmal A-fib ([facility]) ([facility]) 08/18/2023 Tobacco abuse 10/08/2023 [2] Past Surgical History: Procedure Laterality Date APPENDECTOMY CARDIAC CATHETERIZATION N/A 10/09/2024 Performed by Bob Watson MD at [facility] Cardiac Cath/EP Lab CARDIAC CATHETERIZATION Bilateral 11/01/2024 Performed by Bob Watson MD at [facility] Cardiac Cath/EP Lab CARDIAC CATHETERIZATION N/A 11/01/2024 Performed by Bob Watson MD at [facility] Cardiac Cath/EP Lab COLONOSCOPY N/A 01/24/2025 Performed by Chadd Davis MD at [facility] ENDOSCOPY FISTULAGRAM (HISTORICAL) Left 09/15/2021 LEFT UPPER ARM HX AV FISTULA CREATION IR EMBOLIZATION 10/14/2024 IR EMBOLIZATION 10/14/2024 [facility] SPECIAL PROCEDURES IR FISTULAGRAM 08/07/2022 IR [...] planning if and when patient is willing. [employer] Phone: 03-15-2025 Consult note Associated Order (s): Inpatient consult to Vascular Surgery--[facility]; Gangrenous toes noted on first 4 toes on left lower extremity, please evaluate Images from the original note were not included. Inpatient consult to Vascular Surgery--[facility]; Gangrenous toes noted on [...] 0 min Stress: Stress Concern Present (02/21/2025) [place] [employer] - Occupational Stress Questionnaire Feeling of Stress : To some extent Social Connections: Unknown (02/21/2025) Social Connection and Isolation Panel [NHANES] Frequency of Communication with Friends and Family: More than three times a week Frequency of Social Gatherings with Friends and Family: Patient declined Attends Confucianism Services: Patient declined Active Member of Clubs [...] Department of Surgery General Surgery Resident Pager: [phone] PAGING / [employer] Secure Chat: From 6a-6p (- weekends): [employer] Secure Chat (FIRST) or Pager above (EMERGENT/Second) From 6p-6a (-s): Find resident physician under [facility] Surgery - General - Surgical ICU [...] This note may have been dictated using [employer] Practice Edition and/or [employer] Voice Recognition Feature. The document was proofread; however, unrecognized voice recognition expert witness errors may be present. [1] Past Medical History: Diagnosis Date Acute renal failure (ARF) ([facility]) 10/19/2019 Anemia 12/30/2021 Calcification of abdominal aorta ([facility]) 10/08/202309/[address] abd Diverticulosis 10/08/2023 ESRD on hemodialysis ([facility]) ([facility]) 10/26/2019 Hemodialysis patient ([facility]) ([facility]) HTN (hypertension) 12/01/2022 Hypertension IgA nephropathy IgA nephropathy determined by biopsy of kidney 10/26/2019 Missed vaccination due to patient refusal 10/08/2023 Has a number of non-scientific based beliefs which interfere with his understanding and acceptance of the medical benefit of vaccination. Nonrheumatic aortic valve stenosis 10/08/2023 Paroxysmal A-fib ([facility]) ([facility]) 08/18/2023 Tobacco abuse 10/08/2023 [2] Past Surgical History: Procedure Laterality Date APPENDECTOMY CARDIAC CATHETERIZATION N/A 10/09/2024 Performed by Bob Watson MD at [facility] Cardiac Cath/EP Lab CARDIAC CATHETERIZATION Bilateral 11/01/2024 Performed by Bob Watson MD at [facility] Cardiac Cath/EP Lab CARDIAC CATHETERIZATION N/A 11/01/2024 Performed by Bob Watson MD at [facility] Cardiac Cath/EP Lab COLONOSCOPY N/A 01/24/2025 Performed by Chadd Davis MD at [facility] ENDOSCOPY FISTULAGRAM (HISTORICAL) Left 09/15/2021 LEFT UPPER ARM HX AV FISTULA CREATION IR EMBOLIZATION 10/14/2024 IR EMBOLIZATION 10/14/2024 [facility] SPECIAL PROCEDURES IR FISTULAGRAM 08/07/2022 IR FISTULAGRAM 08/07/2022 [facility] IR IMAGING TONSILLECTOMY (HISTORICAL) [3] [4] PRN [...] MS, RD, LD Clinical Dietitian Contact: or [employer] Chat (dial *[phone] from hospital phone) Associated Order(s): IP CONSULT [...] ascites and omental edema in upper abdomen.) Pull Tab Dealer Strength: Not Performed Chief Complaint Patient presents with Shortness of Breath [facility]. Pt was starting dialysis and [...] On: Kcal/kg Weight Used for Energy Requirements: [place] Weight for Energy Calculation (kg): 75 kg Total Energy Requirements (kcals/day): 1255-1194 (25-30 kcals/kg) Weight Used for Protein Requirements: Kimmell Weight in Kg Used for Protein Requirements: [...] TSH 6.88 (H) 03/13/2025 FREET4 0.89 03/15/2025 [id number] 959 (H) 10/22/2019 FOLATE 9.2 10/22/2019 FERRITIN [...] for updated dry wt - per nephro) Kim[place]ell Body Weight (lbs) (Calculated): 166 lbs Kimmell Body Weight (Kg) (Calculated): 75 kg % Kim[place]ell Body Weight (Calculated): 88.6 % BMI (kg/m2) [...] Yasemin Elizabethsalvador MS, RD, LD Contact: or [employer]sk[employer] (dial *[phone] from hospital phone) [1] Past Medical History: Diagnosis Date Acute renal failure (ARF) ([facility]) 10/19/2019 Anemia 12/30/2021 Calcification of abdominal aorta ([facility]) 10/08/202309/[address] abd Diverticulosis 10/08/2023 ESRD on hemodialysis ([facility] ([facility]) 10/26/2019 Hemodialysis patient ([facility]) ([facility]) HTN (hypertension) 12/01/2022 Hypertension IgA nephropathy IgA nephropathy determined by biopsy of kidney 10/26/2019 Missed vaccination due to patient refusal 10/08/2023 Has a number of non-scientific based beliefs which interfere with his understanding and acceptance of the medical benefit of vaccination. Nonrheumatic aortic valve stenosis 10/08/2023 Paroxysmal A-fib ([facility]) ([facility]) 08/18/2023 Tobacco abuse 10/08/2023 [2] Past Surgical History: Procedure Laterality Date APPENDECTOMY CARDIAC CATHETERIZATION N/A 10/09/2024 Performed by Bob Watson MD at [facility] Cardiac Cath/EP Lab CARDIAC CATHETERIZATION Bilateral 11/01/2024 Performed by Bob Watson MD at [facility] Cardiac Cath/EP Lab CARDIAC CATHETERIZATION N/A 11/01/2024 Performed by Bob Watson MD at [facility] Cardiac Cath/EP Lab COLONOSCOPY N/A 01/24/2025 Performed by Chadd Davis MD at [facility] ENDOSCOPY FISTULAGRAM (HISTORICAL) Left 09/15/2021 LEFT UPPER ARM HX AV FISTULA CREATION IR EMBOLIZATION 10/14/2024 IR EMBOLIZATION 10/14/2024 [facility] SPECIAL PROCEDURES IR FISTULAGRAM 08/07/2022 IR FISTULAGRAM 08/07/2022 [facility] IR IMAGING TONSILLECTOMY (HISTORICAL) [3] Lidocaine, 1 patch, Topical, Daily metoprolol tartrate, 25 mg, Oral, q6h pantoprazole, 40 mg, Oral, BID AC sevelamer carbonate, 800 mg, Oral, TID WC sodium zirconium cyclosilicate, 5 g, Oral, Daily warfarin, 2.5 mg, Oral, Once [4] [facility] Consult Note Consults HPI Jun is [...] 0 min Stress: Stress Concern Present (02/21/2025) [place] [employer] - Occupational Stress Questionnaire Feeling of Stress : To some extent Social Connections: Unknown (02/21/2025) Social Connection and Isolation Panel [NHANES] Frequency of Communication with Friends and Family: More than three times a week Frequency of Social Gatherings with Friends and Family: Patient declined Attends Confucianism Services: Patient declined Active Member of Clubs [...] and sacral wound. Please message me through [employer] chat with any questions or concerns. Wellington Nicole MD 03/14/2025 10:43 AM [facility] [address] [place] [address], [address] [place] [address] Office: [phone] [1] Past Medical History: Diagnosis Date Acute renal failure (ARF) ([facility]) 10/19/2019 Anemia 12/30/2021 Calcification of abdominal aorta ([facility]) 10/08/202309/[address] abd Diverticulosis 10/08/2023 ESRD on hemodialysis ([facility] ([facility]) 10/26/2019 Hemodialysis patient ([facility]) ([facility]) HTN (hypertension) 12/01/2022 Hypertension IgA nephropathy IgA nephropathy determined by biopsy of kidney 10/26/2019 Missed vaccination due to patient refusal 10/08/2023 Has a number of non-scientific based beliefs which interfere with his understanding and acceptance of the medical benefit of vaccination. Nonrheumatic aortic valve stenosis 10/08/2023 Paroxysmal A-fib ([facility]) ([facility]) 08/18/2023 Tobacco abuse 10/08/2023 [2] Family History [...] AC, Rubi Sanon MD, 40 mg at 03/14/2521 polyethylene glycol (PEG) 3350 (Miralax) packet 17 [...] 3350 Associated Order(s): IP CONSULT TO CARDIOLOGY [facility] Cardiology /Electrophysiology Consult Note Reason for Consult/Chief Complaint: Volume overload, afib rvr Referring provider: Dr Kidd Established cert pharmacy tech: Dr Shah History of Present Illness: [...] to select rehab. He recently was at [facility] for Klebsiella pneumonia, hemoptysis and lung [...] of Cardiovascular Disease, Division of Heart Failure [facility] 3:25 PM 03/14/25 Associated Order(s): INPATIENT CONSULT TO WOUND CARE PROVIDERS Images from the original note were not included. [facility] Wound VAC CONSULT Note Jun [...] apply Betadine and allow to dry, leave SUPERVISOR SHIPFITTERS daily and PRN Nutritional support Wound Care to follow Recommend to follow up at [facility] wound care center after hospital discharge. Any [...] 10/19/2019 Anemia 12/30/2021 Calcification of abdominal aorta ([facility]) 10/08/202309/[address] abd Diverticulosis 10/08/2023 ESRD on hemodialysis ([facility]) ([facility]) 10/26/2019 Hemodialysis patient ([facility]) ([facility]) HTN (hypertension) 12/01/2022 Hypertension IgA nephropathy IgA nephropathy determined by biopsy of kidney 10/26/2019 Missed vaccination due to patient refusal 10/08/2023 Has a number of non-scientific based beliefs which interfere with his understanding and acceptance of the medical benefit of vaccination. Nonrheumatic aortic valve stenosis 10/08/2023 Paroxysmal A-fib ([facility]) ([facility]) 08/18/2023 Tobacco abuse 10/08/2023 [2] Past Surgical History: Procedure Laterality Date APPENDECTOMY CARDIAC CATHETERIZATION N/A 10/09/2024 Performed by Bob Watson MD at [facility] Cardiac Cath/EP Lab CARDIAC CATHETERIZATION Bilateral 11/01/2024 Performed by Bob Watson MD at [facility] Cardiac Cath/EP Lab CARDIAC CATHETERIZATION N/A 11/01/2024 Performed by Bob Watson MD at [facility] Cardiac Cath/EP Lab COLONOSCOPY N/A 01/24/2025 Performed by Chadd Davis MD at [facility] ENDOSCOPY FISTULAGRAM (HISTORICAL) Left 09/15/2021 LEFT UPPER ARM HX AV FISTULA CREATION IR EMBOLIZATION 10/14/2024 IR EMBOLIZATION 10/14/2024 [facility] SPECIAL PROCEDURES IR FISTULAGRAM 08/07/2022 IR [...] 4:44 PM EDT documented in this encounter [facility] 03-15-2025 Note Patient currently of f unit, will attempt smoking cessation counseling at a later date. [facility] 03-15-2025 Nurse Note Patient Name: Jun Snyder Patient : 1965 Acct: [id number] Date of Admission: 03/13/2025 Room[facility] [...] - Before each treatment: Dialysis Machine No.: [id number] RO Machine Number: [id number] Dialyzer Lot No.: [id number] Tubing Lot Number: [id number] [employer] Secure: Yes Venous Parameters Set: Yes Arterial Parameters Set: Yes NS Bag: Yes Saline Line Double Clamped: Yes Dialyzer: Nipro Prime Volume (mL): 200 mL RO Machine Number: [id number] RO Machine Log Sheet Completed: Yes Machine Alarm Self Test: Completed, Passed (03/15/25 1215) Air Foam Detector: Tested, Proper Function, pH Reading Extracorporeal Circuit Tested for Integrity: Yes Machine Conductivity: 13.8 Manual Conductivity: 13.7 Manual Ph: 7 Bleach Test (Neg): Yes Bath Temperature: 36 C (96.8 F) Conductivity Meter Serial #: [id number] Machine Functioning Alarm Free? Yes Dialysis Bath: [...] Other (Comment) (to inform patient arrival from [place] emergency room and need for orders) Provider [...] failure with hypoxia (HCC) [J96.01] Tracheostomy care ([facility]) [Z43.0] Pulmonary embolism (HCC) MCC (current) use of antibiotics Complication of tracheostomy (CMS/HCC) (HCC) BRBPR (bright red blood per rectum) Hemoptysis SOB (shortness of breath) Moderate malnutrition (CMS/HCC) (HCC) [3] [facility] 03-15-2025 Consult note Associated Order (s): IP CONSULT TO DIETITIAN See dietitian eval dated 03/14/25. Pt tolerating diet well, was started on ensure plus HP BID during admission. Will continue to monitor labs, meds, po intakes and/or enteral nutrition tolerance, skin integrity, wt trends, and overall nutrition status - RD to follow weekly Yasemin Ceron MS, RD, LD Clinical Dietitian Contact: or [employer] Chat (dial *[phone] from hospital phone) [facility] 03-15-2025 Plan of care note Problem: Knowledge [...] Interventions Goal: Assess Nutritional Intake Outcome: Progressing [facility] 03-15-2025 Note Formatting of this n ote might be different from the original. Care Management Progress Note Cardiology following. Pt in A flutter, trying rate control. Has wound vac on sacral area. Pt is refusing surgery. When stable is a bed hold at [facility]. . Length of Stay (Days): 2 GMLOS: No GMLOS Documented [facility] 03-15-2025 Note Formatting of this n ote might be different from the original. Care Management Progress Note Cardiology following. Pt in A flutter, trying rate control. Has wound vac on sacral area. Pt is refusing surgery. When stable is a bed hold at [facility]. . Length of Stay (Days): 2 GMLOS: No GMLOS Documented [facility] 03-15-2025 Nurse Note Wound Care consulted for Pressure Injury Prevention. Pt's Kee score= 14 on 03/13 Pt's pressure points assessed. Pt's Heels, Back, Elbows, Occiput and ears all intact. Yoder and healed area noted to occiput. Pt moving lower extremities well in bed against gravity. Pt currently followed by Wound ALTERATION INSPECTOR group for wounds to left toes 1-4 and sacrum with wound vac in place. For left toes, sacrum, and sacral wound vac assessments and treatment plan, please see Wound/Ostomy ALTERATION INSPECTOR progress notes. Instructed pt on pressure injury prevention and importance of turning/postioning every 2hrs while in bed and every 15 min while sitting in chair. Instructed on use and care of waffle chair cushion. Verbalized understanding. Prevention Measures in place, including: [place] sheet with pillows/wedges, Heels elevated off bed on pillows, Zinc/Moisture Barrier ointment (obtained), Waffle chair cushion (obtained for pt). Skin Care precaution order set in place. Dietitian consult order placed d/t wounds. PT/OT consult in place. Will continue to follow pt. Please Vocera for any questions or concerns. Yari Pelletier RN [facility] 03-15-2025 Plan of care note Problem: Knowledge Deficit Goal: Patient/family/caregiver demonstrates understanding of disease process, treatment plan, medications, and discharge instructions Outcome: Progressing Problem: Problem Interventions Goal: Assess Nutritional Intake Outcome: Progressing [facility] 03-14-2025 Plan of care note Problem: Knowledge [...] Interventions Goal: Assess Nutritional Intake Outcome: Progressing [facility] 03-14-2025 Consult note Associated Order (s): [...] ascites and omental edema in upper abdomen.) Pull Tab Dealer Strength: Not Performed Chief Complaint Patient presents with Shortness of Breath [facility]. Pt was starting dialysis and [...] On: Kcal/kg Weight Used for Energy Requirements: Kimmell Weight for Energy Calculation (kg): 75 kg Total Energy Requirements (kcals/day): 1871-9997 (25-30 kcals/kg) Weight Used for Protein Requirements: Kimmell Weight in Kg Used for Protein Requirements: [...] TSH 6.88 (H) 03/13/2025 FREET4 0.89 03/15/2025 [id number] 959 (H) 10/22/2019 FOLATE 9.2 10/22/2019 FERRITIN [...] for updated dry wt - per nephro) Kimmell Body Weight (lbs) (Calculated): 166 lbs Kimmell Body Weight (Kg) (Calculated): 75 kg % Kim[place]ell Body Weight (Calculated): 88.6 % BMI (kg/m2) [...] Yasemin Osmany MS, RD, LD Contact: or [employer] (dial *[phone] from hospital phone) [1] Past Medical History: Diagnosis Date Acute renal failure (ARF) ([facility]) 10/19/2019 Anemia 12/30/2021 Calcification of abdominal aorta ([facility]) 10/08/202309/[address] abd Diverticulosis 10/08/2023 ESRD on hemodialysis ([facility] ([facility]) 10/26/2019 Hemodialysis patient ([facility] ([facility]) HTN (hypertension) 12/01/2022 Hypertension IgA nephropathy IgA nephropathy determined by biopsy of kidney 10/26/2019 Missed vaccination due to patient refusal 10/08/2023 Has a number of non-scientific based beliefs which interfere with his understanding and acceptance of the medical benefit of vaccination. Nonrheumatic aortic valve stenosis 10/08/2023 Paroxysmal A-fib ([facility]) ([facility]) 08/18/2023 Tobacco abuse 10/08/2023 [2] Past Surgical History: Procedure Laterality Date APPENDECTOMY CARDIAC CATHETERIZATION N/A 10/09/2024 Performed by Bob Watson MD at [facility] Cardiac Cath/EP Lab CARDIAC CATHETERIZATION Bilateral 11/01/2024 Performed by Bob Watson MD at [facility] Cardiac Cath/EP Lab CARDIAC CATHETERIZATION N/A 11/01/2024 Performed by Bob Watson MD at [facility] Cardiac Cath/EP Lab COLONOSCOPY N/A 01/24/2025 Performed by Chadd Davis MD at [facility] ENDOSCOPY FISTULAGRAM (HISTORICAL) Left 09/15/2021 LEFT [...] Daily warfarin, 2.5 mg, Oral, Once [4] [facility] 03-14-2025 Hospital Discharg e steven Jones RN - 03/14/2025 2:19 PM EDT My Heart Failure Action Plan Use the below chart as a guide for daily symptom monitoring after you obtain your morning weight. My Guide Cruise: Dr. Shah [facility] Cardiology at [facility] [phone] My Copy Lathe Operator: [facility] [address] [place] [address] My Diagnosis: Heart failure with [...] 5 pounds in a week Call your Copy Lathe Operator/Dialysis center!! My Diet Goal: General diet recommendations [...] Performed by Bob Watson MD at [facility] Cardiac Cath/EP Lab CARDIAC CATHETERIZATION Bilateral 11/01/2024 Performed by Bob Watson MD at [facility] Cardiac Cath/EP Lab CARDIAC CATHETERIZATION N/A 11/01/2024 Performed by Bob Watson MD at [facility] Cardiac Cath/EP Lab COLONOSCOPY N/A 01/24/2025 Performed by Chadd Davis MD at [facility] ENDOSCOPY FISTULAGRAM (HISTORICAL) Left 09/15/2021 LEFT UPPER ARM HX AV FISTULA CREATION IR EMBOLIZATION 10/14/2024 IR EMBOLIZATION 10/14/2024 [facility] SPECIAL PROCEDURES IR FISTULAGRAM 08/07/2022 IR [...] (CMS/HCC) (HCC) Acute respiratory failure with hypoxia ([facility]) [J96.01] Tracheostomy care ([facility]) [Z43.0] Pulmonary embolism (HCC) long term care pharmacist (current) use of antibiotics Complication of tracheostomy (CMS/HCC) (HCC) Hemoptysis Moderate malnutrition (CMS/HCC) (HCC) Anemia Aortic stenosis Upper GI bleed S/P AVR Acute hypoxic respiratory failure ([facility]) Acute encephalopathy Pneumoperitoneum BRBPR (bright red blood [...] (70.3 kg) Mental Status: {ROSENDO Patient Mental Status:64142} IV Access: {[facility] IV Access:29504} Nursing Mobility/ADLs: Walking {CHRISTY ADL:::"Independent"} Transfer {CHRISTY ADL:::"Independent"} Bathing {CHRISTY ADL:::"Independent"} Dressing {CHRISTY ADL:::"Independent"} Toileting {CHRISTY ADL:::"Independent"} Feeding {CHRISTY ADL:::"Independent"} Inside Sales Advisor {CHRISTY ADL:::"Independent"} Med Delivery {yes/no:51756} Wound Care Documentation and Therapy: Wound/Incision 11/13/24 Pressure Injury Sacrum (Active) Site Assessment Red;Yoder 03/21/25 0402 Mahnaz-Wound Assessment Yoder 03/13/251999 Drainage Description Sanguineous 03/13/251999 Odor Malodorous/putrid [...] Site Assessment Black;Painful 03/21/25 0402 Mahnaz-Wound Assessment Yoder 03/21/25 0402 Odor None 03/18/25 1500 Drainage [...] Number of days: 7 Elimination: Continence: Bowel: {yes/no:66982} Bladder: {yes/no:06788} Urinary Catheter: {ROSENDO Urinary Catheter:62378} Colostomy/Ileostomy/Ileal Conduit: {YES / NO:61892} Date of Last BM: Intake/Output Summary (Last 24 hours) at 03/21/2025 1206 Last data filed at 03/20/2025 1523 Gross per 24 hour Intake 300 ml Output -- Net 300 ml I/O last 3 completed shifts: In: 1338.9 (19 mL/kg) [P.O.:240; I.V.:1098.9 (15.6 mL/kg)] Out: - (0 mL/kg) Weight: 70.3 kg Safety Concerns: {ROSENDO Safety Concerns:31555} Impairments/Disabilities: {ROSENDO Impairments/Disabilities:43534} Nutrition Therapy: Current Nutrition Therapy: {ROSENDO Diet List:32374} Routes of Feeding: {routes of feedin} Liquids: {liquid consistency:23024} Daily Fluid Restriction: {daily fluid restriction:48360} Last Modified Barium Swallow with Video (Video Swallowing Test): {done not done:58466} Treatments at the Time of Hospital Discharge: Respiratory Treatments: Oxygen Therapy: {Therapy; copd oxygen:65699} Ventilator: {ROSENDO Ventilator:86692} Rehab Therapies: {GEN THERAPY DISCIPLINE SCAL:3244288} Weight Bearing Status/Restrictions: {POD WEIGHT BEARIN} Other Medical Equipment (for information only, NOT a DME order): {Assistive Devices DME:02458} Other Treatments: Patient's personal belongings (please select all that are sent with patient): {ROSENDO Patient Belongings:06945} RN SIGNATURE: {E-signature:98091} CASE MANAGEMENT/SOCIAL WORK SECTION Inpatient Status Date: 02-10-25 Discharging to Facility/ Agency Name: [facility] Address:[address] [place] [address] Fax: Dialysis Facility (if applicable) Name: Address: Dialysis Schedule: Phone: Fax: Caustic Room Operator/Grey Goods Tester signature: ICIAN SECTION Name: Jun Snyder Prognosis: fair Condition at Discharge: stable Rehab Potential (if transferring to Rehab): fair Recommended Labs or Other Treatments After Discharge: none The individual is being admitted to a nursing facility directly from an [facility] or a unit of a [facility] that is not operated by or licensed by [facility] under section 5119.14 or 5160-3-15.1 5 The [...] H&P PHYSICIAN SIGNATURE: documented in this encounter [facility] 03-14-2025 Nurse Note Patient Name: Jun Snyder Patient : 1965 Acct: [id number] Date of Admission: 03/13/2025 [facility] [...] - Before each treatment: Dialysis Machine No.: [id number] Machine Number: [id number] Dialyzer Lot No.: [id number] Tubing Lot Number: [id number] All Connections Secure: Yes Venous Parameters Set: Yes Arterial Parameters Set: Yes NS Bag: Yes Saline Line Double Clamped: Yes Dialyzer: Nipro Prime Volume (mL): 200 mL RO Machine Number: [id number] RO Machine Log Sheet Completed: Yes Machine Alarm Self Test: Completed, Passed (03/14/25 1135) Air Foam Detector: Tested, Proper Function, pH Reading Extracorporeal Circuit Tested for Integrity: Yes Machine Conductivity: 13.7 Manual Conductivity: 13.6 Manual Ph: 7 Bleach Test (Neg): Yes Bath Temperature: 36 C (96.8 F) Conductivity Meter Serial #: [id number] Machine Functioning Alarm Free? Yes Dialysis Bath: [...] Other (Comment) (to inform patient arrival from [place] emergency room and need for orders) Provider [...] Active Problem List Diagnosis Anemia Paroxysmal A-fib ([facility] ([facility]) HTN (hypertension) ESRD on hemodialysis ([facility]) ([facility]) IgA nephropathy determined by biopsy of kidney Diverticulosis Nonrheumatic aortic valve stenosis Calcification of abdominal aorta ([facility]) Missed vaccination due to patient refusal Tobacco abuse Alcohol use disorder in remission Atrial flutter, unspecified type ([facility]) RSV (acute bronchiolitis due to respiratory syncytial virus) Aortic stenosis Upper GI bleed S/P AVR Acute hypoxic respiratory failure ([facility]) Acute encephalopathy Pneumoperitoneum Gastric ulceration Severe malnutrition ([facility]) ([facility]) Pleural effusion Peritonitis due to fungus ([facility]) History of abdominal surgery Leg DVT (deep venous thromboembolism), acute, left (HCC) Ischemic ulcer of toe of left foot, 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) Tracheostomy dependence (HCC) Leukocytosis Decubitus ulcer of sacral region, unstageable (HCC) Pneumonia of both lungs due to methicillin susceptible Staphylococcus aureus (MSSA) (HCC) Sacral osteomyelitis (CMS/HCC) (HCC) Acute respiratory failure with hypoxia (HCC) [J96.01] Tracheostomy care ([facility]) [Z43.0] Pulmonary embolism (HCC) MCC (current) use of antibiotics Complication of tracheostomy (CMS/HCC) (HCC) BRBPR (bright red blood per rectum) Hemoptysis SOB (shortness of breath) [3] T [facility] 03-14-2025 Consult note Formatting of th is note is different from the original. [facility] Consult Note Consults MELO Ramirez is [...] 0 min Stress: Stress Concern Present (02/21/2025) [facility] [place] [employer] - Occupational Stress Questionnaire Feeling of Stress : To some extent Social Connections: Unknown (02/21/2025) Social Connection and Isolation Panel [NHANES] Frequency of Communication with Friends and Family: More than three times a week Frequency of Social Gatherings with Friends and Family: Patient declined Attends Confucianism Services: Patient declined Active Member of Clubs [...] and sacral wound. Please message me through [employer] chat with any questions or concerns. Wellington Nicole MD 03/14/2025 10:43 AM [facility] [address] [place] [address], [address] [place] [address] Office: [phone] [1] Past Medical History: Diagnosis Date Acute renal failure (ARF) (HCC) 10/19/2019 Anemia 12/30/2021 Calcification of abdominal aorta (HCC) 10/08/202309/[address] abd Diverticulosis 10/08/2023 ESRD on hemodialysis (CMS/HCC) (HCC) 10/26/2019 Hemodialysis patient ([facility]) (HCC) HTN (hypertension) 12/01/2022 Hypertension IgA nephropathy [...] ODT OR ondansetron, polyethylene glycol (PEG) 3350 [facility] 03-14-2025 Note Formatting of this n ote might be different from the original. Care Management Progress Note Pt was sent to ER from dialysis due to shortness of breath. Needs PVR of BLE. Nephrology, Vascular and therapies are following. Wants to return to [facility]. Is a bed hold, but if they can skill him they would like to.. Length of Stay (Days): 1 GMLOS: No GMLOS Documented [facility] 03-14-2025 Note Formatting of this n ote might be different from the original. Care Management Progress Note Pt was sent to ER from dialysis due to shortness of breath. Needs PVR of BLE. Nephrology, Vascular and therapies are following. Wants to return to [facility]. Is a bed hold, but if they can skill him they would like to.. Length of Stay (Days): 1 GMLOS: No GMLOS Documented [facility] 03-14-2025 Consult note Associated Order (s): IP CONSULT TO CARDIOLOGY [facility] Cardiology /Electrophysiology Consult Note Reason for Consult/Chief Complaint: Volume overload, afib rvr Referring provider: Dr Kidd Established cert pharmacy tech: Dr Shah History of Present Illness: [...] to select rehab. He recently was at [facility] for Klebsiella pneumonia, hemoptysis and lung [...] of Cardiovascular Disease, Division of Heart Failure [facility] 3:25 PM 03/14/25 [facility] Work Phone: 03-14-2025 Consult note Associated Order (s): INPATIENT CONSULT TO WOUND CARE PROVIDERS Images from the original note were not included. [facility] Wound VAC CONSULT Note Jun [...] apply Betadine and allow to dry, leave SUPERVISOR SHIPFITTER[employer] daily and PRN Nutritional support Wound Care to follow Recommend to follow up at [facility] wound care center after hospital discharge. Any [...] History: Diagnosis Date Acute renal failure (ARF) ([facility]) 10/19/2019 Anemia 12/30/2021 Calcification of abdominal aorta ([facility]) 10/08/202309/[address] abd Diverticulosis 10/08/2023 ESRD on hemodialysis ([facility]) ([facility]) 10/26/2019 Hemodialysis patient ([facility]) ([facility]) HTN (hypertension) 12/01/2022 Hypertension IgA nephropathy IgA [...] Performed by Bob Watson MD at [facility] Cardiac Cath/EP Lab CARDIAC CATHETERIZATION Bilateral 11/01/2024 Performed by Bob Watson MD at [facility] Cardiac Cath/EP Lab CARDIAC CATHETERIZATION N/A 11/01/2024 Performed by Bob Watson MD at [facility] Cardiac Cath/EP Lab COLONOSCOPY N/A 01/24/2025 Performed by Chadd Dvais MD at [facility] ENDOSCOPY FISTULAGRAM (HISTORICAL) Left 09/15/2021 LEFT UPPER ARM HX AV FISTULA CREATION IR EMBOLIZATION 10/14/2024 IR EMBOLIZATION 10/14/2024 [facility] SPECIAL PROCEDURES IR FISTULAGRAM 08/07/2022 IR [...] DO at 03/19/2025 4:44 PM EDT T [facility] 03-14-2025 Note Formatting of this n ote might be different from the original. Referral placed to [facility] via [facility] per TCC request. Await review and response regarding ability to accept. TCC notified. Electronically signed by [facility] Sabino Rodrigues [facility] 03-14-2025 Note Formatting of this n ote might be different from the original. Referral placed to [facility] via [facility] per TCC request. Await review and response regarding ability to accept. TCC notified. Electronically signed by [facility] Sabino Rodrigues [facility] 03-14-2025 Note Referral placed to [facility] via [facility] per TCC request. Await review and response regarding ability to accept. TCC notified. Electronically signed by [facility] Plan of care note Problem: Knowledge Deficit Goal: Patient/family/caregiver demonstrates understanding of disease process, treatment plan, medications, and discharge instructions Outcome: Progressing Problem: Potential for Compromised Skin Integrity Goal: Skin Integrity is Maintained or Improved Outcome: Progressing [facility] 03-13-2025 Nurse Note Removed wound vac that patient arrived to 5w from ecf pictures of all wound taken on rover and saved to chart NSWto DSD applied to sacral wound [facility] 03-13-2025 History and physical note [facility] Attending History and Physical Admit Date: 03/13/2025 [...] Klebsiella pneumonia with lung abscess presented to [facility] ED with worsening shortness of breath. He [...] in upper abdomen He was transferred from [facility] ED to [facility] due to bed availability Past Medical History: [...] 0 min Stress: Stress Concern Present (02/21/2025) [facility] [place] [employer] - Occupational Stress Questionnaire Feeling of Stress : To some extent Social Connections: Unknown (02/21/2025) Social Connection and Isolation Panel [NHANES] Frequency of Communication with Friends and Family: More than three times a week Frequency of Social Gatherings with Friends and Family: Patient declined Attends Confucianism Services: Patient declined Active Member of Clubs [...] made to ensure accuracy; however, inadvertent computerized expert witness errors may be present. Rubi Sanon MD,MD Division of Hospitalist Medicine [facility] Please forward a copy of this H&P to the patient's PCP. Thank you. Electronically signed by Rubi Sanon MD at 5:11 PM [1] Past Medical History: Diagnosis Date Acute renal failure (ARF) ([facility]) 10/19/2019 Anemia 12/30/2021 Calcification of abdominal aorta ([facility]) 10/08/202309/[address] abd Diverticulosis 10/08/2023 ESRD on hemodialysis ([facility]) ([facility]) 10/26/2019 Hemodialysis patient ([facility]) ([facility]) HTN (hypertension) 12/01/2022 Hypertension IgA nephropathy IgA nephropathy determined by biopsy of kidney 10/26/2019 Missed vaccination due to patient refusal 10/08/2023 Has a number of non-scientific based beliefs which interfere with his understanding and acceptance of the medical benefit of vaccination. Nonrheumatic aortic valve stenosis 10/08/2023 Paroxysmal A-fib ([facility]) ([facility]) 08/18/2023 Tobacco abuse 10/08/2023 [2] Past Surgical History: Procedure Laterality Date APPENDECTOMY CARDIAC CATHETERIZATION N/A 10/09/2024 Performed by Bob Watson MD at [facility] Cardiac Cath/EP Lab CARDIAC CATHETERIZATION Bilateral 11/01/2024 Performed by Bob Watson MD at [facility] Cardiac Cath/EP Lab CARDIAC CATHETERIZATION N/A 11/01/2024 Performed by Bob Watson MD at [facility] Cardiac Cath/EP Lab COLONOSCOPY N/A 01/24/2025 Performed by Chadd Davis MD at [facility] ENDOSCOPY FISTULAGRAM (HISTORICAL) Left 09/15/2021 LEFT UPPER ARM HX AV FISTULA CREATION IR EMBOLIZATION 10/14/2024 IR EMBOLIZATION 10/14/2024 [facility] SPECIAL PROCEDURES IR FISTULAGRAM 08/07/2022 IR FISTULAGRAM 08/07/2022 [facility] IR IMAGING TONSILLECTOMY (HISTORICAL) [3] Family History Problem Relation Name Age of Onset No Known Problems Mother No Known Problems Father [4] No current facility-administered medications for this encounter. [5] Allergies Allergen Reactions Lisinopril Swelling and Angioedema [facility] 03-13-2025 Note [facility] 03-13-2025 History and physical note [facility] Attending History and Physical Admit Date: 03/13/2025 [...] Klebsiella pneumonia with lung abscess presented to [facility] ED with worsening shortness of breath. He [...] in upper abdomen He was transferred from [facility] to [facility] due to bed availability Past Medical History: [...] 0 min Stress: Stress Concern Present (02/21/2025) [facility] [place] [employer] - Occupational Stress Questionnaire Feeling of Stress : To some extent Social Connections: Unknown (02/21/2025) Social Connection and Isolation Panel [NHANES] Frequency of Communication with Friends and Family: More than three times a week Frequency of Social Gatherings with Friends and Family: Patient declined Attends Confucianism Services: Patient declined Active Member of Clubs [...] made to ensure accuracy; however, inadvertent computerized expert witness errors may be present. Rubi Sanon MD,MD Division of Hospitalist Medicine [facility] Please forward a copy of this H&P to the patient's PCP. Thank you. Electronically signed by Rubi Sanon MD at 5:11 PM [1] Past Medical History: Diagnosis Date Acute renal failure (ARF) ([facility]) 10/19/2019 Anemia 12/30/2021 Calcification of abdominal aorta ([facility]) 10/08/202309/[address] abd Diverticulosis 10/08/2023 ESRD on hemodialysis ([facility]) ([facility]) 10/26/2019 Hemodialysis patient ([facility]) ([facility]) HTN (hypertension) 12/01/2022 Hypertension IgA nephropathy IgA nephropathy determined by biopsy of kidney 10/26/2019 Missed vaccination due to patient refusal 10/08/2023 Has a number of non-scientific based beliefs which interfere with his understanding and acceptance of the medical benefit of vaccination. Nonrheumatic aortic valve stenosis 10/08/2023 Paroxysmal A-fib ([facility]) ([facility]) 08/18/2023 Tobacco abuse 10/08/2023 [2] Past Surgical History: Procedure Laterality Date APPENDECTOMY CARDIAC CATHETERIZATION N/A 10/09/2024 Performed by Bob Watson MD at [facility] Cardiac Cath/EP Lab CARDIAC CATHETERIZATION Bilateral 11/01/2024 Performed by Bob Watson MD at [facility] Cardiac Cath/EP Lab CARDIAC CATHETERIZATION N/A 11/01/2024 Performed by Bob Watson MD at [facility] Cardiac Cath/EP Lab COLONOSCOPY N/A 01/24/2025 Performed by Chadd Davis MD at [facility] ENDOSCOPY FISTULAGRAM (HISTORICAL) Left 09/15/2021 LEFT UPPER ARM HX AV FISTULA CREATION IR EMBOLIZATION 10/14/2024 IR EMBOLIZATION 10/14/2024 [facility] SPECIAL PROCEDURES IR FISTULAGRAM 08/07/2022 IR FISTULAGRAM 08/07/2022 [facility] IR IMAGING TONSILLECTOMY (HISTORICAL) [3] Family History Problem Relation Name Age of Onset No Known Problems Mother No Known Problems Father [4] No current facility-administered medications for this encounter. [5] Allergies Allergen Reactions Lisinopril Swelling and Angioedema documented in this encounter [facility] 03-13-2025 Emergency department Note When this RN came back from [facility] Pt was already taken to [facility] by Consuelo Day. RN covering my lunch called report to RN [facility]. [facility] 03-13-2025 Emergency department Note When this RN came back from lunch Pt was already taken to [facility] by Consuelo Day. RN covering my lunch called report to RN [facility]. Called report to SWEETIE Linder at 5W. Consuelo Johnson at bedside to transport patient to [facility]. Emergency Department Encounter Pt Name: Jun Snyder Birthdate 1965 Date of evaluation: 03/13/2025 Provider: Keiry Solares MD CHIEF COMPLAINT Chief Complaint Patient presents with Shortness of Breath [facility]. Pt was starting dialysis and [...] Response: Oriented Best Motor Response: Follows commands [place] Coma Scale Score: 15 EMERGENCY DEPARTMENT COURSE and DIFFERENTIAL DIAGNOSIS/MDM: Differential diagnoses include: Arrhythmia, pulmonary edema, pneumonia, electrolyte abnormality particular hyperkalemia Sources of history: discharge summary from 03/05/25, incorporated findings into the note Diagnostic tests considered but not performed: d-dimer; doubt PE. ED course: ED Course as of 03/13/252112Mar 13, [id number] I interpreted the ECG as showing atrial [...] Hoffman, due to no available beds at [facility] and available beds at [facility] patient wishes to be transferred. I discussed the case with Dr. Sanon at [facility] who accepts patient for transfer. Chronic conditions and social determinants of health affecting care: atrial fibrillation, ESRD DISPOSITION/PLAN Admit 03/13/2025 02:55:43 PM Keiry Solares MD Emergency Medicine [1] Past Medical History: Diagnosis Date Acute renal failure (ARF) ([facility]) 10/19/2019 Anemia 12/30/2021 Calcification of abdominal aorta ([facility]) 10/08/202309/[address] abd Diverticulosis 10/08/2023 ESRD on hemodialysis ([facility]) ([facility]) 10/26/2019 Hemodialysis patient ([facility]) ([facility]) HTN (hypertension) 12/01/2022 Hypertension IgA nephropathy IgA nephropathy determined by biopsy of kidney 10/26/2019 Missed vaccination due to patient refusal 10/08/2023 Has a number of non-scientific based beliefs which interfere with his understanding and acceptance of the medical benefit of vaccination. Nonrheumatic aortic valve stenosis 10/08/2023 Paroxysmal A-fib ([facility]) ([facility]) 08/18/2023 Tobacco abuse 10/08/2023 Keiry Solares MD 03/13/252115 documented in this encounter [facility] 03-13-2025 Emergency department Note Called report to SWEETIE Linder at 5W. [facility] 03-13-2025 Emergency department Note Consuelo Johnson at bedside to transport patient to [facility]. [facility] 03-13-2025 Physician Emergen cy department Note Emergency Department Encounter Pt Name: Jun Snyder Birthdate 1965 Date of evaluation: 03/13/2025 Provider: Keiry Solares MD CHIEF COMPLAINT Chief Complaint Patient presents with Shortness of Breath Pt arrived from jail via EMS. Pt was starting dialysis and [...] Response: Oriented Best Motor Response: Follows commands [place] Coma Scale Score: 15 EMERGENCY DEPARTMENT COURSE and DIFFERENTIAL DIAGNOSIS/MDM: Differential diagnoses include: Arrhythmia, pulmonary edema, pneumonia, electrolyte abnormality particular hyperkalemia Sources of history: discharge summary from 03/05/25, incorporated findings into the note Diagnostic tests considered but not performed: d-dimer; doubt PE. ED course: ED Course as of 03/13/252112e Mar 13, [id number] I interpreted the ECG as showing atrial [...] Hoffman, due to no available beds at [facility] and available beds at [facility] patient wishes to be transferred. I discussed the case with Dr. Sanon at [facility] who accepts patient for transfer. Chronic conditions and social determinants of health affecting care: atrial fibrillation, ESRD DISPOSITION/PLAN Admit 03/13/2025 02:55:43 PM Keiry Solares MD Emergency Medicine [1] Past Medical History: Diagnosis Date Acute renal failure (ARF) ([facility]) 10/19/2019 Anemia 12/30/2021 Calcification of abdominal aorta ([facility]) 10/08/202309/[address] abd Diverticulosis 10/08/2023 ESRD on hemodialysis ([facility] ([facility]) 10/26/2019 Hemodialysis patient ([facility]) ([facility]) HTN (hypertension) 12/01/2022 Hypertension IgA nephropathy IgA nephropathy determined by biopsy of kidney 10/26/2019 Missed vaccination due to patient refusal 10/08/2023 Has a number of non-scientific based beliefs which interfere with his understanding and acceptance of the medical benefit of vaccination. Nonrheumatic aortic valve stenosis 10/08/2023 Paroxysmal A-fib ([facility]) ([facility]) 08/18/2023 Tobacco abuse 10/08/2023 Keiry Solares MD 03/13/252115 [facility] 03-08-2025 History of Presen t illness Narrative Pt was followed by the Palliative Care Team during hospitalization at [facility]. Provider is recommending continued Palliative follow up in the community. Referral made too [facility] Palliative Care Team, faxed info to [phone] documented in this encounter [facility] 03-08-2025 Telephone encount er Note 2nd attempt called and spoke to the Alyssa the Nurse for the patient at the facility he lives at. She states Sabino is the person who schedules the appointments and she is on vacation and wont be back till next Wednesday. I will try again next wednesday [facility] 03-08-2025 Miscellaneous Notes Formattin g of this [...] this? Thank you documented in this encounter [facility] 03-05-2025 History of Presen t illness Narrative Images from the original note were not included. PHYSICAL THERAPY [facility] Treatment Note Name/MRN: Jair Snyder ([id number]) Date of : 1965 Age: 59 y.o. Room/Bed: W3-334/W3-334 A Discharge Recommendation: Intermediate Facility Equipment Needed: (tbd) Assessment Increased time [...] (fa-gt) Merlene León PTA Cosigned by Anthony Black, PT at 03/05/2025 [...] any questions or concerns Bree Molina APRN ALCOHOL STILL OPERATOR A-G ALTERATION INSPECTOR [facility] [phone] I reviewed with PASSENGER FLAGMAN-ALCOHOL STILL OPERATOR the medical history and the findings on physical examination. I discussed the patient s diagnosis and concur with the treatment plan as documented in his note. Please call [phone] or message me through [employer] with any questions or concerns. [facility] Anticoagulation Management Service ([facility]) Inpatient Warfarin Consult HPI: Jun Snyder is a 59 y.o. male admitted on 02/20/2025 for Hemoptysis [R04.2]. Medical History[1] Patient is on warfarin for mechanical AVR and has a goal INR 2.0 - 3.0. Patient was referred to [facility], but so far has been managed at facilities, most recently [facility]. Pt's home dose of warfarin is [...] over when discharged from facility. Tiffanie Dial [facility] Consult Service is available daily [phone] via [employer] Secure Chat. [1] Past Medical History: Diagnosis Date Acute renal failure (ARF) ([facility]) 10/19/2019 Anemia 12/30/2021 Calcification of abdominal aorta ([facility]) 10/08/202309/[address] abd Diverticulosis 10/08/2023 ESRD on hemodialysis ([facility] ([facility]) 10/26/2019 Hemodialysis patient ([facility] ([facility]) HTN (hypertension) 12/01/2022 Hypertension IgA nephropathy IgA nephropathy determined by biopsy of kidney 10/26/2019 Missed vaccination due to patient refusal 10/08/2023 Has a number of non-scientific based beliefs which interfere with his understanding and acceptance of the medical benefit of vaccination. Nonrheumatic aortic valve stenosis 10/08/2023 Paroxysmal A-fib (CMS/HCC) (HCC) 08/18/2023 Tobacco abuse 10/08/2023 Hospitalist Progress Note - [facility] ([facility]) 03/05/2025 7:13 AM [phone]: Please page me for patient care issues. [phone]: Please page [facility] Hospitalist - [facility] for any issues. Subjective and Objective: Admit [...] was bright red and it stopped just COPYWRITING INTERN when in transport. Adult diet Regular Dietary [...] - (0 mL/kg) Weight: 60.8 kg @IODETAILS@ @[id number]@ Medications: Continuous Meds[1] Scheduled Meds[2] Recent Labs [...] "CHOL" No results found for: "PHART", "PO2ART", "REE1FUZ" Recent Labs 03/04/25 0156 03/04/25 0946 03/05/25 [...] stable for discharge - Location - [facility] ([facility]) - Pending the following - [...] DO Division of Hospitalist Medicine Inpatient Medical Services/[facility] [1] heparin, 5-30 Units/kg/hr, Last Rate: 21 Units/kg/hr (03/05/25 7753) [2] B complex-vitamin C-folic acid, 1 capsule, [...] were not included. PHYSICAL THERAPY [facility] Name/MRN: Jair Snyder ([id number]) Date: 03/04/2025 Attempted to initiate PT this date; upon arrival, patient states he is needs to have a bowel movement and does not want to do PT. Offered to ambulate patient to bathroom or use of a bedpan however patient declines. Will continue to follow. Emily Stanley PTA Cosigned by Darryn Tay PT at 03/04/2025 3:38 PM EDT Hospitalist Progress Note - [facility] [employer] ([facility]) 03/04/2025 9:11 AM [phone]: Please page me for patient care issues. [phone]: Please page [facility] Hospitalist - [facility] for any issues. Subjective and Objective: Admit [...] was bright red and it stopped just COPYWRITING INTERN when in transport. Adult diet Regular Dietary [...] - (0 mL/kg) Weight: 60.8 kg @IODETAILS@ @[id number]@ Medications: Continuous Meds[1] Scheduled Meds[2] Recent Labs [...] "CHOL" No results found for: "PHART", "PO2ART", "[id number]" Recent Labs 03/02/25 0004 03/03/25 0212 03/04/25 [...] 03/04 - 05/05 - Location - [facility] ([facility]) - Pending the following - [...] DO Division of Hospitalist Medicine Inpatient Medical Services/[facility] [1] heparin, 5-30 Units/kg/hr, Last Rate: 20 [...] electrolyte and CBC daily Maryam Marcelo DO [facility] Anticoagulation Management Service ([facility]) Inpatient Warfarin Consult HPI: Jun Snyder is a 59 y.o. male admitted on 02/20/2025 for Hemoptysis [R04.2]. Medical History[1] Patient is on warfarin for mechanical AVR and has a goal INR 2.0 - 3.0. Patient was referred to [facility], but so far has been managed at facilities, most recently [facility]. Pt's home dose of warfarin is [...] 4mg 6/4 1.3 3mg / 1.3 2mg / 1.3 1.5mg 02/25 1.3 [...] PharmD [facility] Consult Service is available daily [phone] via [employer]. [1] Past Medical History: Diagnosis Date Acute renal failure (ARF) ([facility]) 10/19/2019 Anemia 12/30/2021 Calcification of abdominal aorta ([facility]) 10/08/202309/[address] abd Diverticulosis 10/08/2023 ESRD on hemodialysis ([facility]) ([facility]) 10/26/2019 Hemodialysis patient ([facility]) ([facility]) HTN (hypertension) 12/01/2022 Hypertension IgA nephropathy IgA nephropathy determined by biopsy of kidney 10/26/2019 Missed vaccination due to patient refusal 10/08/2023 Has a number of non-scientific based beliefs which interfere with his understanding and acceptance of the medical benefit of vaccination. Nonrheumatic aortic valve stenosis 10/08/2023 Paroxysmal A-fib ([facility]) ([facility]) 08/18/2023 Tobacco abuse 10/08/2023 Hospitalist Progress Note - [facility] [employer] ([facility]) 03/03/2025 8:37 AM [phone]: Please page me for patient care issues. [phone]: Please page [facility] Hospitalist - [facility] for any issues. Subjective and Objective: Admit [...] was bright red and it stopped just COPYWRITING INTERN when in transport. Adult diet Regular Dietary [...] (0.4 mL/kg) [Drains:25] Weight: 60.8 kg @IODETAILS@ @[id number]@ Medications: Continuous Meds[1] Scheduled Meds[2] Recent Labs [...] "CHOL" No results found for: "PHART", "PO2ART", "CMJ1VHL" Recent Labs 03/01/25 0003 03/02/25 0004 03/03/25 [...] Date - 03/04 - Location - [facility] ([facility]) - Pending the following - [...] DO Division of Hospitalist Medicine Inpatient Medical Services/[facility] [1] heparin, 5-30 Units/kg/hr, Last Rate: 20 [...] any questions or concerns Bree Molina APRN ALCOHOL STILL OPERATOR A-G ALTERATION INSPECTOR [facility] [phone] Pt seen and examined independently by me. I reviewed with PASSENGER FLAGMAN-ALCOHOL STILL OPERATOR the medical history and the findings on physical examination. I discussed the patient s diagnosis and concur with the treatment plan as documented in his note. Please call [phone] or message me through [employer] with any questions or concerns. Hospitalist Progress Note - [facility] [employer] [facility] [employer] ([facility]) 03/02/2025 8:20 AM [phone]: Please page me for patient care issues. [phone]: Please page [facility] Hospitalist - [facility] for any issues. Subjective and Objective: Admit [...] was bright red and it stopped just COPYWRITING INTERN when in transport. Adult diet Regular Dietary [...] (0.7 mL/kg) [Drains:40] Weight: 60.8 kg @IODETAILS@ @[id number]@ Medications: Continuous Meds[1] Scheduled Meds[2] Recent Labs [...] "CHOL" No results found for: "PHART", "PO2ART", "LJP7KEH" Recent Labs 02/28/25 0004 03/01/25 0003 03/02/25 [...] Date - 03/03 - Location - [facility] ([facility]) - Pending the following - INR 1.8, [...] DO Division of Hospitalist Medicine Inpatient Medical Services/[facility] [1] heparin, 5-30 Units/kg/hr, Last Rate: 19 Units/kg/hr (03/02/25 0813) [2] B complex-vitamin C-folic acid, 1 capsule, Oral, Daily metoprolol tartrate, 25 mg, Oral, BID pantoprazole, 40 mg, Oral, BID AC piperacillin-tazobactam, 2,250 mg, IntraVENous, q6h QUEtiapine, 25 mg, Oral, Nightly sevelamer carbonate, 800 mg, Oral, TID WC warfarin, 5 mg, Oral, Once [facility] Anticoagulation Management Service ([facility]) Inpatient Warfarin Consult HPI: Jun Snyder is a 59 y.o. male admitted on 02/20/2025 for Hemoptysis [R04.2]. Medical History[1] Patient is on warfarin for mechanical AVR and has a goal INR 2.0 - 3.0. Patient was referred to [facility], but so far has been managed at facilities, most recently [facility]. Pt's home dose of warfarin is [...] 03/02/25 0004 INR 1.4* Date INR Dose 6/5 1.4 5mg 03/01 1.4 4mg 02/28 1.3 [...] RPh [facility] Consult Service is available daily [phone] via [employer]. [1] Past Medical History: Diagnosis Date Acute renal failure (ARF) ([facility]) 10/19/2019 Anemia 12/30/2021 Calcification of abdominal aorta ([facility]) 10/08/202309/[address] abd Diverticulosis 10/08/2023 ESRD on hemodialysis ([facility]) ([facility]) 10/26/2019 Hemodialysis patient ([facility]) ([facility]) HTN (hypertension) 12/01/2022 Hypertension IgA nephropathy IgA nephropathy determined by biopsy of kidney 10/26/2019 Missed vaccination due to patient refusal 10/08/2023 Has a number of non-scientific based beliefs which interfere with his understanding and acceptance of the medical benefit of vaccination. Nonrheumatic aortic valve stenosis 10/08/2023 Paroxysmal A-fib ([facility]) ([facility]) 08/18/2023 Tobacco abuse 10/08/2023 Images from the original note were not included. PHYSICAL THERAPY [facility] Treatment Note Name/MRN: Jair Snyder ([id number]) Date of : 1965 Age: 59 y.o. Room/Bed: W3-334/W3-334 A Discharge Recommendation: Intermediate Facility Equipment Needed: No Assessment Good distance, [...] Timed Code Treatment Minutes: (gt-fa) Merlene León, COPYWRITING INTERN Cosigned by Anthony Black PT at 03/01/2025 4:34 PM EDT Associated attestation - Anthony Black, PT - 03/01/2025 4:34 PM EDT Did not have opportunity today to speak to COPYWRITING INTERN re: recommendation. Mobility appears to be consistent with homegoing, but know that medical conditions and other factors clearly could influence recommendations. Images from the original note were not included. OCCUPATIONAL THERAPY [facility] Treatment Note Name/MRN: Jair Snyder ([id number]) Date of : 1965 Age: 59 y.o. Room/Bed: W3-334/W3-334 A Discharge Recommendation: Intermediate Facility Other: DME TBD at next level [...] Treatment Minutes: 18 Minutes (x1 ADL) Ro Farnswroth OT Nephrology Progress Note Following for ESRD [...] with any questions or concerns Bree Molina PASSENGER FLAGMAN ALCOHOL STILL OPERATOR A-G ALTERATION INSPECTOR [facility] [phone] Pt seen and examined independently by me. I reviewed with Jun Maki, the medical history and the findings on physical examination. I discussed the patient s diagnosis and concur with the treatment plan as documented in his note. Please call [phone] or message me through [employer] with any questions or concerns. Hospitalist Progress Note - [facility] [employer] ([facility]) 03/01/2025 9:51 AM [phone]: Please page me for patient care issues. [phone]: Please page [facility] Hospitalist - [facility] for any issues. Subjective and Objective: Admit [...] was bright red and it stopped just COPYWRITING INTERN when in transport. Adult diet Regular Dietary Orders (From admission, onward) Start Ordered 02/27/25 1254 Supplement:Breakfast, Dinner; Nepro w/CARB Steady Until discontinued Question Answer Comment Frequency Breakfast Frequency Dinner Select supplement: Nepro w/CARB Steady 02/27/25 1254 02/21/25 1021 Adult diet Regular Diet effective now Question: Diet type Answer: Regular 02/21/25 1021 No intake/output data recorded. @IODRETAILS@ @[id number]@ Medications: Continuous Meds[1] Scheduled Meds[2] Recent Labs [...] "CHOL" No results found for: "PHART", "PO2ART", "GLZ2WLT" Recent Labs 02/27/25 0010 02/28/25 0004 03/01/25 [...] 03/01 - 03/02 - Location - SN[facility] ([facility]) - Pending the following - INR 1.8, [...] DO Division of Hospitalist Medicine Inpatient Medical Services/[facility] [1] heparin, 5-30 Units/kg/hr, Last Rate: 18 [...] were not included. PHYSICAL THERAPY [facility] Name/MRN: Jair Snyder ([id number]) Date: 03/01/2025 Leaving for dialysis. Return later time/date for PT. Merlene León PTA Cosigned by Anthony Black PT at 03/01/2025 8:42 AM EDT [facility] Anticoagulation Management Service ([facility]) Inpatient Warfarin Consult HPI: Jun Snyder is a 59 y.o. male admitted on 02/20/2025 for Hemoptysis [R04.2]. Medical History[1] Patient is on warfarin for mechanical AVR and has a goal INR 2.0 - 3.0. Patient was referred to [facility], but so far has been managed at facilities, most recently [facility]. Pt's home dose of warfarin is [...] over when discharged from facility. Fatuma Odonnell [facility] Consult Service is available daily [phone] via [employer]. [1] Past Medical History: Diagnosis Date Acute renal failure (ARF) ([facility]) 10/19/2019 Anemia 12/30/2021 Calcification of abdominal aorta ([facility]) 10/08/202309/[address] abd Diverticulosis 10/08/2023 ESRD on hemodialysis ([facility]) ([facility]) 10/26/2019 Hemodialysis patient ([facility]) ([facility]) HTN (hypertension) 12/01/2022 Hypertension IgA nephropathy IgA [...] any questions or concerns Bree Molina APRN ALCOHOL STILL OPERATOR A-G ALTERATION INSPECTOR [facility] [phone] Pt seen and examined independently by me. I reviewed with DENIA-SAMIA the medical history and the findings on physical examination. I discussed the patient s diagnosis and concur with the treatment plan as documented in his note. Please call [phone] or message me through [employer] with any questions or concerns. Hospitalist Progress Note - [facility] [employer] ([facility]) 02/28/2025 8:23 AM [phone]: Please page me for patient care issues. [phone]: Please page [facility] Hospitalist - [facility] for any issues. Subjective and Objective: Admit [...] was bright red and it stopped just COPYWRITING INTERN when in transport. Adult diet Regular Dietary [...] [Urine:450 (0.2 mL/kg/hr)] Weight: 60.8 kg @IODETAILS@ @[id number]@ Medications: Continuous Meds[1] Scheduled Meds[2] Recent Labs [...] "CHOL" No results found for: "PHART", "PO2ART", "ORS8ERQ" Recent Labs 02/25/25 2345 02/27/25 0010 02/28/25 [...] 03/01 - 03/02 - Location - [facility] ([facility]) - Pending the following - INR 2.0, [...] DO Division of Hospitalist Medicine Inpatient Medical Services/[facility] [1] heparin, 5-30 Units/kg/hr, Last Rate: 18 Units/kg/hr (02/28/25 0714) [2] B complex-vitamin C-folic acid, 1 capsule, Oral, Daily metoprolol tartrate, 25 mg, Oral, BID pantoprazole, 40 mg, Oral, qAM AC piperacillin-tazobactam, 4,500 mg, IntraVENous, q8h QUEtiapine, 25 mg, Oral, Nightly sevelamer carbonate, 800 mg, Oral, TID WC warfarin, 3 mg, Oral, Once Images from the original note were not included. [facility] Wound Care/[facility] Progress Note Jun [...] pain with pain medication, per staff nurse midwife, prior to wound VAC dressing change. Wet [...] apply Betadine and allow to dry, leave SUPERVISOR SHIPFITTERS daily and PRN Left plantar heel - unstageable pressure injury (POA): -cleanse with NS, apply Betadine and allow to dry, leave TISHA daily and PRN Right wrist Abrasion: -cleanse with antibacterial soap/water, leave SUPERVISOR SHIPFITTERS daily Sacral Stage 4 pressure injury (POA): [...] follow Recommend to follow up at [facility] Outpatient wound care center after hospital [...] History: Diagnosis Date Acute renal failure (ARF) ([facility]) 10/19/2019 Anemia 12/30/2021 Calcification of abdominal aorta ([facility]) 10/08/202309/[address] abd Diverticulosis 10/08/2023 ESRD on hemodialysis ([facility]) ([facility]) 10/26/2019 Hemodialysis patient ([facility]) ([facility]) HTN (hypertension) 12/01/2022 Hypertension IgA nephropathy IgA nephropathy determined by biopsy of kidney 10/26/2019 Missed vaccination due to patient refusal 10/08/2023 Has a number of non-scientific based beliefs which interfere with his understanding and acceptance of the medical benefit of vaccination. Nonrheumatic aortic valve stenosis 10/08/2023 Paroxysmal A-fib ([facility]) ([facility]) 08/18/2023 Tobacco abuse 10/08/2023 [2] Past Surgical History: Procedure Laterality Date APPENDECTOMY CARDIAC CATHETERIZATION N/A 10/09/2024 Performed by Bob Watson MD at [facility] Cardiac Cath/EP Lab CARDIAC CATHETERIZATION Bilateral 11/01/2024 Performed by Bob Watson MD at [facility] Cardiac Cath/EP Lab CARDIAC CATHETERIZATION N/A 11/01/2024 Performed by Bob Watson MD at [facility] Cardiac Cath/EP Lab COLONOSCOPY N/A 01/24/2025 Performed by Chadd Davis MD at [facility] ENDOSCOPY FISTULAGRAM (HISTORICAL) Left 09/15/2021 LEFT UPPER ARM HX AV FISTULA CREATION IR EMBOLIZATION 10/14/2024 IR EMBOLIZATION 10/14/2024 [facility] SPECIAL PROCEDURES IR FISTULAGRAM 08/07/2022 IR [...] Gill DO at 03/01/2025 2:50 PM EDT [facility] Anticoagulation Management Service ([facility]) Inpatient Warfarin Consult HPI: Jun Snyder is a 59 y.o. male admitted on 02/20/2025 for Hemoptysis [R04.2]. Medical History[1] Patient is on warfarin for mechanical AVR and has a goal INR 2.0 - 3.0. Patient was referred to [facility], but so far has been managed at facilities, most recently [facility]. Pt's home dose of warfarin is [...] RPh [facility] Consult Service is available daily [phone] via [employer]. [1] Past Medical History: Diagnosis Date Acute renal failure (ARF) ([facility]) 10/19/2019 Anemia 12/30/2021 Calcification of abdominal aorta ([facility]) 10/08/202309/[address] abd Diverticulosis 10/08/2023 ESRD on hemodialysis ([facility]) ([facility]) 10/26/2019 Hemodialysis patient ([facility]) ([facility]) HTN (hypertension) 12/01/2022 Hypertension IgA nephropathy IgA nephropathy determined by biopsy of kidney 10/26/2019 Missed vaccination due to patient refusal 10/08/2023 Has a number of non-scientific based beliefs which interfere with his understanding and acceptance of the medical benefit of vaccination. Nonrheumatic aortic valve stenosis 10/08/2023 Paroxysmal A-fib ([facility]) ([facility]) 08/18/2023 Tobacco abuse 10/08/2023 Nephrology Progress Note [...] from the original note were not included. [facility] - Infectious Diseases Attending Progress [...] Total Energy Requirements (kcals/day): 30-35 kcal/kg = 0355-5547 kcal Weight Used for Protein Requirements: Current [...] lb) (08/28/24) % Weight Change (Calculated): -34.6 [place] Body Weight (lbs) (Calculated): 166 lbs [place] Body Weight (Kg) (Calculated): 75 kg % [place] Body Weight (Calculated): 81.1 % BMI (kg/m2) [...] to determine Glenys Juares RD, LD Contact: [phone] Images from the original note were not included. PHYSICAL THERAPY [facility] Name/MRN: Jair Snyder ([id number]) Date: 02/27/2025 Request for "see today" note, [...] Anthony Black, PT Hospitalist Progress Note - [facility] [employer] ([employer]) 02/27/2025 9:03 AM [phone]: Please page me for patient care issues. [phone]: Please page [facility] Hospitalist - [facility] for any issues. Subjective and Objective: Admit [...] was bright red and it stopped just COPYWRITING INTERN when in transport. Adult diet Regular Dietary Orders (From admission, onward) Start Ordered 02/21/25 1021 Adult diet Regular Diet effective now Question: Diet type Answer: Regular 02/21/25 1021 I/O last 3 completed shifts: In: 750 (12.3 mL/kg) [P.O.:750] Out: 450 (7.4 mL/kg) [Urine:450 (0.2 mL/kg/hr)] Weight: 60.8 kg @IODETAILS@ @[id number]@ Medications: Continuous Meds[1] Scheduled Meds[2] Recent Labs [...] "CHOL" No results found for: "PHART", "PO2ART", "EXS0AUG" Recent Labs 02/25/25 0028 02/25/25 2345 02/27/25 [...] DO Division of Hospitalist Medicine Inpatient Medical Services/[facility] [1] heparin, 5-30 Units/kg/hr, Last Rate: 18 Units/kg/hr (02/27/25 0722) [2] B complex-vitamin C-folic acid, 1 capsule, Oral, Daily metoprolol tartrate, 25 mg, Oral, BID pantoprazole, 40 mg, Oral, qAM AC piperacillin-tazobactam, 4,500 mg, IntraVENous, q8h QUEtiapine, 25 mg, Oral, Nightly sevelamer carbonate, 800 mg, Oral, TID WC warfarin, 2 mg, Oral, Once [facility] Anticoagulation Management Service ([facility]) Inpatient Warfarin Consult HPI: Jun Snyder is a 59 y.o. male admitted on 02/20/2025 for Hemoptysis [R04.2]. Medical History[1] Patient is on warfarin for mechanical AVR and has a goal INR 2.0 - 3.0. Patient was referred to [facility], but so far has been managed at facilities, most recently [facility]. Pt's home dose of warfarin is [...] over when discharged from facility. Fatuma Odonnell [facility] Consult Service is available daily [phone] via [employer]. [1] Past Medical History: Diagnosis Date Acute renal failure (ARF) (HCC) 10/19/2019 Anemia 12/30/2021 Calcification of abdominal aorta (HCC) 10/08/202309/[address] abd Diverticulosis 10/08/2023 ESRD on hemodialysis (CMS/HCC) (HCC) 10/26/2019 Hemodialysis patient ([facility]) ([facility]) HTN (hypertension) 12/01/2022 Hypertension IgA nephropathy IgA nephropathy determined by biopsy of kidney 10/26/2019 Missed vaccination due to patient refusal 10/08/2023 Has a number of non-scientific based beliefs which interfere with his understanding and acceptance of the medical benefit of vaccination. Nonrheumatic aortic valve stenosis 10/08/2023 Paroxysmal A-fib ([facility]) ([facility]) 08/18/2023 Tobacco abuse 10/08/2023 Images from the original note were not included. OCCUPATIONAL THERAPY [facility] Initial Evaluation Name/MRN: Jair Snyder ([id number]) Evaluation Date: 02/26/2025 Date of : 1965 Admission Date: 02/20/2025 5:41 PM Age: 59 y.o. Room[facility]Bed: [facility] A Discharge Recommendation: Intermediate Facility Assessment IMPRESSION: Pt would benefit from [...] Problem List Diagnosis Date Noted Severe malnutrition ([facility]) ([facility]) 02/21/2025 Hemoptysis 02/20/2025 Complication of tracheostomy ([facility]) ([facility]) 01/19/2025 long term care pharmacist (current) use of antibiotics 01/12/2025 Acute respiratory failure with hypoxia ([facility]) [J96.01] 01/08/2025 Tracheostomy care ([facility]) [Z43.0] 01/08/2025 Pulmonary embolism ([facility]) 01/08/2025 Sacral osteomyelitis ([facility]) ([facility]) 01/03/2025 Pneumonia of both lungs due to methicillin susceptible Staphylococcus aureus (MSSA) ([facility]) 01/01/2025 Leukocytosis 12/30/2024 Decubitus ulcer of sacral region, unstageable ([facility]) 12/30/2024 Peritonitis due to fungus ([facility]) 11/30/2024 History of abdominal surgery 11/30/2024 Leg DVT (deep venous thromboembolism), acute, left ([facility]) 11/30/2024 Ischemic ulcer of toe of left foot, limited to breakdown of skin ([facility]) 11/30/2024 Tracheostomy dependence ([facility]) 11/30/2024 Pleural effusion 11/28/2024 Gastric ulceration 2024 Atrial flutter, unspecified type ([facility]) 10/03/2024 RSV (acute bronchiolitis due to respiratory syncytial virus) 10/03/2024 Diverticulosis 10/08/2023 Nonrheumatic aortic valve stenosis 10/08/2023 Calcification of abdominal aorta ([facility]) 10/08/2023 Missed vaccination due to patient refusal 10/08/2023 Tobacco abuse 10/08/2023 Alcohol use disorder in remission 10/08/2023 Paroxysmal A-fib ([facility]) ([facility]) 08/18/2023 HTN (hypertension) 12/01/2022 ESRD on hemodialysis ([facility]) ([facility]) 10/26/2019 IgA nephropathy determined by biopsy of kidney 10/26/2019 BRBPR (bright red blood per rectum) 01/19/2025 Aortic stenosis 10/03/2024 Upper GI bleed 10/03/2024 S/P AVR 10/03/2024 Acute hypoxic respiratory failure ([facility]) 10/03/2024 Acute encephalopathy 10/03/2024 Pneumoperitoneum 10/03/2024 Anemia [...] of Care supervision is transferred to a [facility] Therapy Services Occupational Therapist. Goals and/or treatment plan was established in collaboration with patient/family/other representatives. Ro Sales MS, OTR/L [1] Past Medical History: Diagnosis Date Acute renal failure (ARF) ([facility]) 10/19/2019 Anemia 12/30/2021 Calcification of abdominal aorta ([facility]) 10/08/202309/[address] abd Diverticulosis 10/08/2023 ESRD on hemodialysis ([facility]) ([facility]) 10/26/2019 Hemodialysis patient ([facility]) ([facility]) HTN (hypertension) 12/01/2022 Hypertension IgA nephropathy IgA nephropathy determined by biopsy of kidney 10/26/2019 Missed vaccination due to patient refusal 10/08/2023 Has a number of non-scientific based beliefs which interfere with his understanding and acceptance of the medical benefit of vaccination. Nonrheumatic aortic valve stenosis 10/08/2023 Paroxysmal A-fib ([facility]) ([facility]) 08/18/2023 Tobacco abuse 10/08/2023 [2] Past Surgical History: Procedure Laterality Date APPENDECTOMY CARDIAC CATHETERIZATION N/A 10/09/2024 Performed by Bob Watson MD at [facility] Cardiac Cath/EP Lab CARDIAC CATHETERIZATION Bilateral 11/01/2024 Performed by Bob Watson MD at [facility] Cardiac Cath/EP Lab CARDIAC CATHETERIZATION N/A 11/01/2024 Performed by Bob Watson MD at [facility] Cardiac Cath/EP Lab COLONOSCOPY N/A 01/24/2025 Performed by Chadd Davis MD at [facility] ENDOSCOPY FISTULAGRAM (HISTORICAL) Left 09/15/2021 LEFT UPPER ARM HX AV FISTULA CREATION IR EMBOLIZATION 10/14/2024 IR EMBOLIZATION 10/14/2024 [facility] SPECIAL PROCEDURES IR FISTULAGRAM 08/07/2022 IR [...] bilateral pleural effusions. 5. Cholelithiasis, and diminutive [place] kidneys. Seen by pulm service Started on IV abx Started on heparin gtt as well Interval History: pt feels ok Some dizziness at times No more bleeding issues 02/23 Pt awake Reports his PEG is uncomfortable-- wants removed if able No CP 02/24 Pt awake Some cough at times Sob better 02/25 Pt awake No sob today No CP 6/2 Pt awake Pain controlled No CP Adult diet Regular @IODETAILS@ @[email or web address]@ Medications: Continuous Meds[1] Scheduled Meds[2] Recent Labs [...] any questions or concerns Bree Molina APRN ALCOHOL STILL OPERATOR A-G ALTERATION INSPECTOR [facility] [phone] Pt seen and examined independently by me. I reviewed with, PASSENGER FLAGMAN-ALCOHOL STILL OPERATOR the medical history and the findings on physical examination. I discussed the patient s diagnosis and concur with the treatment plan as documented in his note. Please call [phone] or message me through [employer] with any questions or concerns. PULMONOLOGY CONSULT [...] from the original note were not included. [facility] Wound Care/NPWT Progress Note Jun [...] pain with pain medication, per staff nurse midwife, prior to wound VAC dressing change. Wet [...] apply Betadine and allow to dry, leave SUPERVISOR SHIPFITTERS daily and PRN Left plantar heel - unstageable pressure injury (POA): -cleanse with NS, apply Betadine and allow to dry, leave SUPERVISOR SHIPFITTER[employer] daily and PRN Right wrist Abrasion: -cleanse [...] follow Recommend to follow up at [facility] Outpatient wound care center after hospital [...] History: Diagnosis Date Acute renal failure (ARF) ([facility]) 10/19/2019 Anemia 12/30/2021 Calcification of abdominal aorta ([facility]) 10/08/202309/[address] abd Diverticulosis 10/08/2023 ESRD on hemodialysis ([facility]) ([facility]) 10/26/2019 Hemodialysis patient ([facility]) ([facility]) HTN (hypertension) 12/01/2022 Hypertension IgA nephropathy IgA nephropathy determined by biopsy of kidney 10/26/2019 Missed vaccination due to patient refusal 10/08/2023 Has a number of non-scientific based beliefs which interfere with his understanding and acceptance of the medical benefit of vaccination. Nonrheumatic aortic valve stenosis 10/08/2023 Paroxysmal A-fib ([facility]) ([facility]) 08/18/2023 Tobacco abuse 10/08/2023 [2] Past Surgical History: Procedure Laterality Date APPENDECTOMY CARDIAC CATHETERIZATION N/A 10/09/2024 Performed by Bob Watson MD at [facility] Cardiac Cath/EP Lab CARDIAC CATHETERIZATION Bilateral 11/01/2024 Performed by Bob Watson MD at [facility] Cardiac Cath/EP Lab CARDIAC CATHETERIZATION N/A 11/01/2024 Performed by Bob Watson MD at [facility] Cardiac Cath/EP Lab COLONOSCOPY N/A 01/24/2025 Performed by Chadd Davis MD at [facility] ENDOSCOPY FISTULAGRAM (HISTORICAL) Left 09/15/2021 LEFT [...] needed (PRN constipation). [DISCONTINUED] epoetin rowan-epbx (Retacrit) 42103 UNIT/ML injection Inject 0.79 mL (7,900 Units) under the skin 1 (one) time per week. (Patient not taking: Reported on 02/21/2025) [DISCONTINUED] pantoprazole (ProtoNix) 40 MG injection Infuse 40 mg into a venous catheter 2 times daily. Cosigned by Ahsan Gill DO at 02/26/2025 4:59 PM EDT [facility] Anticoagulation Management Service ([facility]) Inpatient Warfarin Consult HPI: Jun Snyder is a 59 y.o. male admitted on 02/20/2025 for Hemoptysis [R04.2]. Medical History[1] Patient is on warfarin for mechanical AVR and has a goal INR 2.0 - 3.0. Patient was referred to [facility], but so far has been managed at facilities, most recently [facility]. Pt's home dose of warfarin is [...] over when discharged from facility. Fatuma Odonnell [facility] Consult Service is available daily [phone] via [employer] Secure Chat. [1] Past Medical History: Diagnosis Date Acute renal failure (ARF) ([facility]) 10/19/2019 Anemia 12/30/2021 Calcification of abdominal aorta ([facility]) 10/08/202309/[address] abd Diverticulosis 10/08/2023 ESRD on hemodialysis ([facility]) ([facility]) 10/26/2019 Hemodialysis patient ([facility]) ([facility]) HTN (hypertension) 12/01/2022 Hypertension IgA nephropathy IgA nephropathy determined by biopsy of kidney 10/26/2019 Missed vaccination due to patient refusal 10/08/2023 Has a number of non-scientific based beliefs which interfere with his understanding and acceptance of the medical benefit of vaccination. Nonrheumatic aortic valve stenosis 10/08/2023 Paroxysmal A-fib ([facility]) ([facility]) 08/18/2023 Tobacco abuse 10/08/2023 Nephrology Progress Note [...] were not included. PHYSICAL THERAPY [facility] Initial Evaluation Name/MRN: Jair Snyder ([id number]) Evaluation Date: 02/25/2025 Date of : 1965 Admission Date: 02/20/2025 5:41 PM Age: 59 y.o. Room/Bed: [facility] A Discharge Recommendation: Intermediate Facility Equipment Needed: No Assessment IMPRESSION: Patient [...] Date Noted Hemoptysis 02/20/2025 Severe malnutrition (CMS/HCC) ([facility]) 01/19/2025 Complication of tracheostomy ([facility]) ([facility]) 01/19/2025 long term care pharmacist (current) use of antibiotics 01/12/2025 Acute respiratory failure with hypoxia ([facility]) [J96.01] 01/08/2025 Tracheostomy care ([facility]) [Z43.0] 01/08/2025 Pulmonary embolism ([facility]) 01/08/2025 Sacral osteomyelitis ([facility]) ([facility]) 01/03/2025 Pneumonia of both lungs due to methicillin susceptible Staphylococcus aureus (MSSA) ([facility]) 01/01/2025 Leukocytosis 12/30/2024 Decubitus ulcer of sacral region, unstageable ([facility]) 12/30/2024 Peritonitis due to fungus ([facility]) 11/30/2024 History of abdominal surgery 11/30/2024 Leg DVT (deep venous thromboembolism), acute, left ([facility]) 11/30/2024 Ischemic ulcer of toe of left foot, limited to breakdown of skin ([facility]) 11/30/2024 Tracheostomy dependence ([facility]) 11/30/2024 Pleural effusion 11/28/2024 Gastric ulceration 2024 Atrial flutter, unspecified type ([facility]) 10/03/2024 RSV (acute bronchiolitis due to respiratory syncytial virus) 10/03/2024 Diverticulosis 10/08/2023 Nonrheumatic aortic valve stenosis 10/08/2023 Calcification of abdominal aorta ([facility]) 10/08/2023 Missed vaccination due to patient refusal 10/08/2023 Tobacco abuse 10/08/2023 Alcohol use disorder in remission 10/08/2023 Paroxysmal A-fib ([facility]) ([facility]) 08/18/2023 HTN (hypertension) 12/01/2022 ESRD on hemodialysis ([facility]) ([facility]) 10/26/2019 IgA nephropathy determined by biopsy of kidney 10/26/2019 BRBPR (bright red blood per rectum) 01/19/2025 Aortic stenosis 10/03/2024 Upper GI bleed 10/03/2024 S/P AVR 10/03/2024 Acute hypoxic respiratory failure ([facility]) 10/03/2024 Acute encephalopathy 10/03/2024 Pneumoperitoneum 10/03/2024 Anemia [...] of Care supervision is transferred to a [facility] Therapy Services Physical Therapist. Goals and/or treatment plan was established in collaboration with patient/family/other representatives. [1] Past Medical History: Diagnosis Date Acute renal failure (ARF) ([facility]) 10/19/2019 Anemia 12/30/2021 Calcification of abdominal aorta ([facility]) 10/08/202309/[address] abd Diverticulosis 10/08/2023 ESRD on hemodialysis ([facility]) ([facility]) 10/26/2019 Hemodialysis patient ([facility]) ([facility]) HTN (hypertension) 12/01/2022 Hypertension IgA nephropathy IgA [...] Performed by Bob Watson MD at [facility] Cardiac Cath/EP Lab CARDIAC CATHETERIZATION Bilateral 11/01/2024 Performed by Bob Watson MD at [facility] Cardiac Cath/EP Lab CARDIAC CATHETERIZATION N/A 11/01/2024 Performed by Bob Watson MD at [facility] Cardiac Cath/EP Lab COLONOSCOPY N/A 01/24/2025 Performed by Chadd Davis MD at [facility] ENDOSCOPY FISTULAGRAM (HISTORICAL) Left 09/15/2021 LEFT UPPER ARM HX AV FISTULA CREATION IR EMBOLIZATION 10/14/2024 IR EMBOLIZATION 10/14/2024 [facility] SPECIAL PROCEDURES IR FISTULAGRAM 08/07/2022 IR [...] bilateral pleural effusions. 5. Cholelithiasis, and diminutive [place] kidneys. Seen by pulm service Started on IV abx Started on heparin gtt as well Interval History: pt feels ok Some dizziness at times No more bleeding issues 02/23 Pt awake Reports his PEG is uncomfortable-- wants removed if able No CP 02/24 Pt awake Some cough at times Sob better 02/25 Pt awake No sob today No CP Adult diet Regular @IODETAILS@ @[email or web address]@ Medications: Continuous Meds[1] Scheduled Meds[2] Recent Labs [...] Directive: Full Code Ramón Romano MD, [facility] Hospitalist [1] heparin, 5-30 Units/kg/hr, Last Rate: 18 Units/kg/hr (02/26/25 0736) [2] B complex-vitamin C-folic acid, 1 capsule, Oral, Daily metoprolol tartrate, 25 mg, Oral, BID pantoprazole, 40 mg, Oral, qAM AC piperacillin-tazobactam, 4,500 mg, IntraVENous, q8h QUEtiapine, 25 mg, Oral, Nightly sevelamer carbonate, 800 mg, Oral, TID WC warfarin, 1.5 mg, Oral, Once [facility] Anticoagulation Management Service ([facility]) Inpatient Warfarin Consult HPI: Jun Snyder is a 59 y.o. male admitted on 02/20/2025 for Hemoptysis [R04.2]. Medical History[1] Patient is on warfarin for mechanical AVR and has a goal INR 2.0 - 3.0. Patient was referred to [facility], but so far has been managed at facilities, most recently [facility]. Pt's home dose of warfarin is [...] PharmD [facility] Consult Service is available daily [phone] via [employer] Secure Chat. [1] Past Medical History: Diagnosis Date Acute renal failure (ARF) (HCC) 10/19/2019 Anemia 12/30/2021 Calcification of abdominal aorta (HCC) 10/08/202309/[address] abd Diverticulosis 10/08/2023 ESRD on hemodialysis ([facility]) (HCC) 10/26/2019 Hemodialysis patient ([facility]) (HCC) HTN (hypertension) 12/01/2022 Hypertension IgA nephropathy [...] from the original note were not included. [facility] - Infectious Diseases Attending Progress [...] Lines: sites clean Labs: Recent Labs 02/22/250 02/23/25 003 NA 132* 135* K 3.4* 4.1 CL 94* 99 CO2 25 BUN 36* 21 CREATININE 3.99* 2.78* GLUCOSE 121* 110* CALCIUM 9.2 9.2 PROT 6.7 7.1 BILITOT 0.6 0.6 ALKPHOS 120 136 AST 35* 37* ALT 9 10 Recent Labs 02/22/25 0100 02/23/25 003 WBC [...] bilateral pleural effusions. 5. Cholelithiasis, and diminutive [place] kidneys. Seen by pulm service Started on IV abx Started on heparin gtt as well Interval History: pt feels ok Some dizziness at times No more bleeding issues 02/23 Pt awake Reports his PEG is uncomfortable-- wants removed if able No CP 02/24 Pt awake Some cough at times Sob better Adult diet Regular @IODETAILS@ @[email or web address]@ Medications: Continuous Meds[1] Scheduled Meds[2] Recent Labs 02/22/259902/23/2531 WBC 9.0 8.6 HGB 7.8* 8.6* PLT 282 316 Recent Labs 02/22/259902/23/2531 NA 132* 135* K 3.4* 4.1 CL 94* 99 CO2 BUN 36* 21 CREATININE 3.99* 2.78* GLUCOSE 121* 110* Recent Labs 05/29/25 0100 05/30/25 0032 AST 35* 37* ALT 9 10 [...] Directive: Full Code Ramón Romano MD, [facility] Hospitalist [1] heparin, 5-30 Units/kg/hr, Last Rate: 18 Units/kg/hr (02/24/25 0736) [2] B complex-vitamin C-folic acid, 1 capsule, Oral, Daily metoprolol tartrate, 25 mg, Oral, BID pantoprazole, 40 mg, Oral, qAM AC QUEtiapine, 25 mg, Per G Tube, Nightly sevelamer carbonate, 800 mg, Oral, TID WC vancomycin (Vancocin) intermittent dosing (placeholder), , Other, RX Placeholder [facility] Anticoagulation Management Service ([facility]) Inpatient Warfarin Consult HPI: Jun Snyder is a 59 y.o. male admitted on 02/20/2025 for Hemoptysis [R04.2]. Medical History[1] Patient is on warfarin for mechanical AVR and has a goal INR 2.0 - 3.0. Patient was referred to [facility], but so far has been managed at facilities, most recently [facility]. Pt's home dose of warfarin is [...] PharmD [facility] Consult Service is available daily [phone] via [employer]. [1] Past Medical History: Diagnosis Date Acute renal failure (ARF) ([facility]) 10/19/2019 Anemia 12/30/2021 Calcification of abdominal aorta ([facility]) 10/08/202309/[address] abd Diverticulosis 10/08/2023 ESRD on hemodialysis ([facility]) ([facility]) 10/26/2019 Hemodialysis patient ([facility]) ([facility]) HTN (hypertension) 12/01/2022 Hypertension IgA nephropathy IgA nephropathy determined by biopsy of kidney 10/26/2019 Missed vaccination due to patient refusal 10/08/2023 Has a number of non-scientific based beliefs which interfere with his understanding and acceptance of the medical benefit of vaccination. Nonrheumatic aortic valve stenosis 10/08/2023 Paroxysmal A-fib ([facility]) ([facility]) 08/18/2023 Tobacco abuse 10/08/2023 Images from the original note were not included. [facility] - Infectious Diseases Attending Progress [...] from the original note were not included. [facility], Pulmonary Medicine [phone] PULMONARY PROGRESS NOTE. Patient - Jun Snyder, Age - 59 y.o. - 1965 Room Number - [id number] A Consulting - Ramón Romano MD [facility] Phys[id number] Date of Admission - 02/20/2025 5:41 PM [...] Labs 02/21/25 0053 02/22/25 0100 02/23/25 003 WBC 7.0 9.0 8.6 HGB 8.3* [...] 2.0* 3.2 2.6 HEPATIC: Recent Labs 02/21/25 00502/22/259902/23/25 003 AST 39* 35* 37* ALT 8 [...] 0100 02/23/25 003 INR 1.4* 1.4* 1.3* BLOOD GAS: [...] PM EDT I have personally performed a ucxt-zb-[id number] diagnostic evaluation on this patient on date of service 02/23/25. History, labs, imaging studies, and electronic medical record have been reviewed by me. This note documented by the [x]visiting housekeeper []ARMIN reflects my history, exam, and medical [...] has been managed at facilities, most recently [facility]. Pt's home dose of warfarin is [...] PharmD [facility] Consult Service is available daily [phone] via [employer] Secure Chat. [1] Past Medical History: Diagnosis Date Acute renal failure (ARF) (HCC) 10/19/2019 Anemia 12/30/2021 Calcification of abdominal aorta (HCC) 10/08/202309/[address] abd Diverticulosis 10/08/2023 ESRD on hemodialysis (CMS/HCC) (HCC) 10/26/2019 Hemodialysis patient ([facility] ([facility]) HTN (hypertension) 12/01/2022 Hypertension IgA nephropathy IgA nephropathy determined by biopsy of kidney 10/26/2019 Missed vaccination due to patient refusal 10/08/2023 Has a number of non-scientific based beliefs which interfere with his understanding and acceptance of the medical benefit of vaccination. Nonrheumatic aortic valve stenosis 10/08/2023 Paroxysmal A-fib ([facility]) ([facility]) 08/18/2023 Tobacco abuse 10/08/2023 Hospitalist Progress Note [...] bilateral pleural effusions. 5. Cholelithiasis, and diminutive [place] kidneys. Seen by pulm service Started on IV abx Started on heparin gtt as well Interval History: pt feels ok Some dizziness at times No more bleeding issues 02/23 Pt awake Reports his PEG is uncomfortable-- wants removed if able No CP Adult diet Regular @IODETAILS@ @[email or web address]@ Medications: Continuous Meds[1] Scheduled Meds[2] Recent Labs 02/21/25 00502/22/259902/23/25 0032 WBC 7.0 9.0 8.6 HGB 8.3* [...] "HDL", "LDLCALC", "CHOL" Recent Labs 02/20/25 1825 02/22/250 02/23/25 0032 INR 1.4* 1.4* 1.3* No [...] Directive: Full Code Ramón Romano MD, [facility] Hospitalist [1] heparin, 5-30 Units/kg/hr, [...] from the original note were not included. [facility] Wound Care/NPWT Progress Note Jun [...] with PO pain medication, per staff nurse midwife, prior to wound VAC dressing change. Wet [...] wrist Abrasion: -cleanse with antibacterial soap/water, leave SUPERVISOR SHIPFITTERS daily Sacral Stage 4 pressure injury (POA): [...] follow Recommend to follow up at [facility] Outpatient wound care center after hospital [...] History: Diagnosis Date Acute renal failure (ARF) ([facility]) 10/19/2019 Anemia 12/30/2021 Calcification of abdominal aorta ([facility]) 10/08/202309/[address] abd Diverticulosis 10/08/2023 ESRD on hemodialysis ([facility]) ([facility]) 10/26/2019 Hemodialysis patient ([facility]) ([facility]) HTN (hypertension) 12/01/2022 Hypertension IgA nephropathy IgA nephropathy determined by biopsy of kidney 10/26/2019 Missed vaccination due to patient refusal 10/08/2023 Has a number of non-scientific based beliefs which interfere with his understanding and acceptance of the medical benefit of vaccination. Nonrheumatic aortic valve stenosis 10/08/2023 Paroxysmal A-fib ([facility]/HCC) (HCC) 08/18/2023 Tobacco abuse 10/08/2023 [2] Past Surgical History: Procedure Laterality Date APPENDECTOMY CARDIAC CATHETERIZATION N/A 10/09/2024 Performed by Bob Watson MD at [facility] Cardiac Cath/EP Lab CARDIAC CATHETERIZATION Bilateral 11/01/2024 Performed by Bob Watson MD at [facility] Cardiac Cath/EP Lab CARDIAC CATHETERIZATION N/A 11/01/2024 Performed by Bob Watson MD at [facility] Cardiac Cath/EP Lab COLONOSCOPY N/A 01/24/2025 Performed by Chadd Davis MD at [facility] ENDOSCOPY FISTULAGRAM (HISTORICAL) Left 09/15/2021 LEFT UPPER ARM HX AV FISTULA CREATION IR EMBOLIZATION 10/14/2024 IR EMBOLIZATION 10/14/2024 [facility] SPECIAL PROCEDURES IR FISTULAGRAM 08/07/2022 IR [...] needed (PRN constipation). [DISCONTINUED] epoetin rowan-epbx (Retacrit) 87127 UNIT/ML injection Inject 0.79 mL (7,900 Units) [...] any questions or concerns Bree Molina APRN ALCOHOL STILL OPERATOR A-G ALTERATION INSPECTOR [facility] [phone] Pt seen and examined independently by me. I reviewed with PASSENGER FLAGMAN-ALCOHOL STILL OPERATOR the medical history and the findings on physical examination. I discussed the patient s diagnosis and concur with the treatment plan as documented in his note. Please call [phone] or message me through [employer] with any questions or concerns. Pharmacy Managed [...] [] CrCl ml/min (Cockcroft-Gault, if BLOSSOM, no POLICY CHANGE CLERK) Infectious Diagnosis: Pneumonia (target level = 15-20 [...] 4:36 PM Daryn Babcock PharmD (available on [employer]) Images from the original note were not included. [facility], Pulmonary Medicine [phone] PULMONARY PROGRESS NOTE. Patient - Jun Snyder, [...] -- 2.0* 3.2 HEPATIC: Recent Labs 02/21/255202/22/25 0100 AST 39* 35* [...] PM EDT I have personally performed a [id number]-[id number] diagnostic evaluation on this patient on date of service 02/22/2025. History, labs, imaging studies, and electronic medical record have been reviewed by me. This note documented by the [x]visiting housekeeper []ARMIN reflects my history, exam, and medical [...] bilateral pleural effusions. 5. Cholelithiasis, and diminutive [place] kidneys. Seen by pulm service Started on IV abx Started on heparin gtt as well Interval History: pt feels ok Some dizziness at times No more bleeding issues Adult diet Regular @IODETAILS@ @[email or web address]@ Medications: Continuous Meds[1] Scheduled Meds[2] Recent Labs 02/20/25182402/21/255202/22/2599 WBC 9.4 7.0 9.0 HGB 8.7* 8.3* 7.8* PLT 312 316 282 Recent Labs 02/20/25182402/21/255202/22/2599 NA 133* 131* 132* K 3.1* 3.1* 3.4* CL 92* 91* 94* CO2 25 BUN 29* 29* 36* CREATININE 2.57* 2.89* [...] Directive: Full Code Ramón Romano MD, [facility] Hospitalist [1] heparin, 5-30 Units/kg/hr, [...] were not included. OCCUPATIONAL THERAPY [facility] Name/MRN: Jair Snyder ([id number]) Date: 02/22/2025 PT refusing to participate in [...] any questions or concerns Bree Molina APRN ALCOHOL STILL OPERATOR A-G ALTERATION INSPECTOR [facility] [phone] Pt seen and examined independently by me. I reviewed with PASSENGER FLAGMAN-ALCOHOL STILL OPERATOR the medical history and the findings on physical examination. I discussed the patient s diagnosis and concur with the treatment plan as documented in his note. Please call [phone] or message me through [employer] with any questions or concerns. Images from the original note were not included. PHYSICAL THERAPY [facility] Name/MRN: Jair Snyder ([id number]) Date: 02/22/2025 Pt declined to work with therapy at this time, stating he wants to wait until after the wound vac is put on. Will reattempt at a later date. Sangeeta Sarabia PT Images from the original note were not included. PHYSICAL THERAPY [facility] Name/MRN: Jair Snyder ([id number]) Date: 02/21/2025 Pt declined to work with [...] Time 17 min documented in this encounter [facility] 03-05-2025 Miscellaneous Notes Formattin g of this note might be different from the original. Auth is now pending with [facility] for [facility]. Auth ID: [id number] . The insurance needs PT and OT notes- as PT note yesterday incomplete , they are both requested . Confirmed pickup time of 4:00pm on 03/05/25 by [employer] at phone number [phone]. Location of facility drop off is [facility]. Facility notified via [facility], [facility] notified on secure chat. Discharge med list transmitted to [facility] via Careport per TCC request. Tcc requested transport to be set up at 4 PM to permit auth to be ongoing- facility can accept- just requested it be started today - toe stapler notified, and discharge orders faxed, will confirm in secure chat the time and notify the tx team , orders in [facility] , rosendo done, return to [facility] . TCC requested OT notes this am - for ongoing auth - PT INR is now good 1.8 , notified facility want to send today , auth was only good thru 03/02 notified [employer] to confirm about auth requirements again today .. Transport in will call, wound VAC to go with patient, discharge orders in [facility] , LIVES at facility LTC - the facility wants to skill- [facility] is working with them to have him discharge later today - transport in will call . Correctional Program Officer notified to send orders and med rec to [facility] Problem: Knowledge Deficit Goal: Patient/family/caregiver demonstrates [...] Note DC plan is return to ECF/SNF- [facility], no auth needed to return however [...] Progress Note 03/03/25 1025 Rapid Rounds Attendance Caustic Room Operator Planned Discharge Disposition Penitentiary ([facility]- return, is LTC no AUTH needed) Today we still await Other (INR >or = 1.8 per SAILAJA) Clinical stability Attending completion of discharge workflow Additional Comments: We have a skilled AUTH that expires midnight tonight, however facility will still accept without AUTH per previous CM notes This Caustic Room Operator was tasked to follow this patient through the weekend. Chart and Careport were reviewed. INR this am is 1.6, subtherapeutic. Facility updated. Transportation is in will call. manager mail will continue to follow for transitional care [...] med list and updated notes transmitted to [facility] via Careport per TCC request. Per epic [...] 1.8 - and need labs post at [facility] to follow . Correctional Program Officer tasked to send wound vac and clinicals- requested PT/OT notes for ongoing auth . Rosendo done- transport in will call to return to [facility] where he lives facility did want [...] Roundtrip in will call per TCC. Tasked [employer] to set up transport in will call, [...] therapy to start auth for [facility]. Continues on IV antibiotics. On a heparin gtt. SMS following to change to Coumadin. INR 13 today. Plan is to return to [facility]. . Length of Stay (Days): 7 GMLOS: [...] therapy notes. Want to skill him at [facility]. Started on IV antibiotics for aspiration pneumonia. Continues on a heparin gtt. . Updated notes sent to [facility] per TCC request. Await review and [...] pressure injuries/wounds this shift so RN SHAQ [facility] would prefer to SKILL patient- [...] Interventions Goal: Promote nutritional intake Outcome: Progressing [facility] would prefer to SKILL patient- LTC. + bedhold will return - has woundVAC and ivab on hep gtt, not ready for discharge , [facility] tasked to send clinicals facility is updated . Updated notes sent to [facility] via [facility] per [facility] request. Await [...] intake Outcome: Not Progressing Has dialysis at [facility] Pt came to ER from dialysis due to hemoptysis. Had a trach removed 01/19. He is a bed hold at [facility]. They would like to skill him if able. Unable to tell me where he went to dialysis this am, asking facility. [facility] TCC request. Await [...] of blood components. documented in this encounter [facility] 03-05-2025 Note [facility] 03-05-2025 Hospital course Narrative Images from the original note were not included. Hospitalist Discharge Summary - [facility] - Acute Care [facility] ([facility]) Jun Adrianna GurrolaLillian : 1965 Admit date: 02/20/2025 Discharge date: 03/05/2025 Admitting Physician: Bettye Pierre MD Primary Care Physician: Leliani Troncoso Recommended Follow-up: [facility] Wound Ostomy [address] [facility] [address] [place] [facility] [address] [facility] [address] Call Call and schedule appointment [...] "CHOL" No results found for: "PHART", "PO2ART", "[id number]" Recent Labs 03/04/25 0156 03/04/25 0946 03/05/25 [...] bilateral pleural effusions. 5. Cholelithiasis, and diminutive [place] kidneys. Report Dictated on Electronically Signed By: [...] Your Medications These medications were sent to [facility] [address] [place] [id number] metoprolol tartrate 25 MG tablet pantoprazole 40 MG EC tablet QUEtiapine 25 MG tablet sevelamer carbonate 800 MG tablet You can get these medications from any pharmacy Bring a paper prescription for each of these medications oxyCODONE 5 MG immediate release tablet Signed: Anthony Hurtado DO 03/05/2025, 9:30 AM documented in this encounter [facility] 03-03-2025 Nurse Note Patient Name: Jun Snyder Patient : 1965 Acct: [id number] Date of Admission: 02/20/2025 [facility] A Code Status: Full Code Allergies: [...] 0545 CALCIUM 9.8 03/03/2025211 PHOS 2.6 02/23/2025 003 IV Drips and Rate/Dose Continuous Meds[3] Safety - Before each treatment: Dialysis Machine No.: [id number] RO Machine Number: [id number] Dialyzer Lot No.: [id number] Tubing Lot Number: [id number] [employer] Secure: Yes Venous Parameters Set: Yes Arterial Parameters Set: Yes NS Bag: Yes Saline Line Double Clamped: Yes Dialyzer: Nipro Prime Volume (mL): 200 mL RO Machine Number: [id number] RO Machine Log Sheet Completed: Yes Machine Alarm Self Test: Completed, Passed (03/03/25 0740) Air Foam Detector: Tested, Proper Function, pH Reading Extracorporeal Circuit Tested for Integrity: Yes Machine Conductivity: 13.7 Manual Conductivity: 13.6 Manual Ph: 7 Bleach Test (Neg): Yes Bath Temperature: 36 C (96.8 F) Conductivity Meter Serial #: [id number] Machine Functioning Alarm Free? Yes Dialysis Bath: K+ (Potassium): 2 Ca+ (Calcium): 2.5 Na+ (Sodium): 137 HCO3 (Bicarb): 35 Bicarbonate Concentrate Lot No.: [id number] Acid Concentrate Lot No.: [id number] Chlorine Testing - Before each treatment and [...] sleeping, removed 2144 03/03/25 1230 350 mL/min 18344 ml/hr -70 mmHg 170 mmHg 80 600 [...] Active Problem List Diagnosis Anemia Paroxysmal A-fib ([facility] ([facility]) HTN (hypertension) ESRD on hemodialysis (CMS/HCC) (HCC) [...] (CMS/HCC) (HCC) Acute respiratory failure with hypoxia ([facility]) [J96.01] Tracheostomy care ([facility]) [Z43.0] Pulmonary embolism (HCC) MCC (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 Please see eMAR for administration Patient Name: Jun Snyder Patient : 1965 Acct: [id number] Date of Admission: 02/20/2025 Room/Bed: W3-334/W3-334 A [...] 28 (H) 03/01/2025 0003 CREATININE 3.73 (H) 03/01/20252 CREATININE 9.99 (H) 10/27/2019 0545 CALCIUM 9.6 03/01/20252 PHOS 2.6 02/23/2025 0032 IV Drips and Rate/Dose Continuous Meds[3] Safety - Before each treatment: Dialysis Machine No.: [id number] RO Machine Number: [id number] Dialyzer Lot No.: [id number] Tubing Lot Number: [id number] [employer] Secure: Yes Venous Parameters Set: Yes Arterial Parameters Set: Yes NS Bag: Yes Saline Line Double Clamped: Yes Dialyzer: Nipro Prime Volume (mL): 200 mL RO Machine Number: [id number] RO Machine Log Sheet Completed: Yes Machine Alarm Self Test: Completed, Passed (03/01/25748) Air Foam Detector: Tested, Proper Function, pH Reading Extracorporeal Circuit Tested for Integrity: Yes Machine Conductivity: 13.6 Manual Conductivity: 13.5 Manual Ph: 7.2 Bleach Test (Neg): Yes Bath Temperature: 36 C (96.8 F) Conductivity Meter Serial #: [id number] Machine Functioning Alarm Free? Yes Dialysis Bath: K+ (Potassium): 3 Ca+ (Calcium): 2.5 Na+ (Sodium): 137 HCO3 (Bicarb): 35 Bicarbonate Concentrate Lot No.: [id number] Acid Concentrate Lot No.: [id number] Chlorine Testing - Before each treatment and [...] Active Problem List Diagnosis Anemia Paroxysmal A-fib ([facility]) ([facility]) HTN (hypertension) ESRD on hemodialysis ([facility]) ([facility]) IgA nephropathy determined by biopsy of kidney Diverticulosis Nonrheumatic aortic valve stenosis Calcification of abdominal aorta ([facility]) Missed vaccination due to patient refusal Tobacco abuse Alcohol use disorder in remission Atrial flutter, unspecified type ([facility]) RSV (acute bronchiolitis due to respiratory syncytial virus) Aortic stenosis Upper GI bleed S/P AVR Acute hypoxic respiratory failure ([facility]) Acute encephalopathy Pneumoperitoneum Gastric ulceration Severe malnutrition ([facility]) ([facility]) Pleural effusion Peritonitis due to fungus ([facility]) History of abdominal surgery Leg DVT (deep venous thromboembolism), acute, left ([facility]) Ischemic ulcer of toe of left foot, 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) Tracheostomy dependence (HCC) Leukocytosis Decubitus ulcer of sacral region, unstageable (HCC) Pneumonia of both lungs due to methicillin susceptible Staphylococcus aureus (MSSA) (HCC) Sacral osteomyelitis (CMS/HCC) (HCC) Acute respiratory failure with hypoxia ([facility]) [J96.01] Tracheostomy care ([facility]) [Z43.0] Pulmonary embolism (HCC) long term care pharmacist (current) use of antibiotics Complication of tracheostomy [...] the room, and the patients agitation. Nurse foundation relations manager notified maintenance of the problem, and [...] nurses aides cannot leave the floor to forklift picker his packages, and pt was agreeable to this as well. Patient Name: Jun Snyder Patient : 1965 Acct: [id number] Date of Admission: 02/20/2025 [facility] A Code Status: Full Code Allergies: [...] (0) 3 Regular None (Room air) Clear Yoder Warm;Dry;No swelling Soft Active 02/27/25 1202 Alert (0) 3 Regular None (Room air) Clear Yoder Warm Soft -- 02/27/25 1240 -- -- [...] - Before each treatment: Dialysis Machine No.: [id number] RO Machine Number: [id number] Dialyzer Lot No.: [id number] Tubing Lot Number: [id number] All Connections Secure: Yes Venous Parameters Set: Yes Arterial Parameters Set: Yes NS Bag: Yes Saline Line Double Clamped: Yes Dialyzer: Nipro Prime Volume (mL): 200 mL RO Machine Number: [id number] RO Machine Log Sheet Completed: Yes Machine Alarm Self Test: Completed, Passed (02/27/25 0745) Air Foam Detector: Tested, Proper Function, pH Reading Extracorporeal Circuit Tested for Integrity: Yes Machine Conductivity: 13.7 Manual Conductivity: 143.6 Manual Ph: 7 Bleach Test (Neg): Yes Bath Temperature: 36 C (96.8 F) Conductivity Meter Serial #: [id number] Machine Functioning Alarm Free? Yes Dialysis Bath: K+ (Potassium): 3 Ca+ (Calcium): 2.5 Na+ (Sodium): 137 HCO3 (Bicarb): 35 Bicarbonate Concentrate Lot No.: [id number] Acid Concentrate Lot No.: [id number] Chlorine Testing - Before each treatment and [...] Active Problem List Diagnosis Anemia Paroxysmal A-fib ([facility]) ([facility]) HTN (hypertension) ESRD on hemodialysis ([facility]) ([facility]) IgA nephropathy determined by biopsy of kidney Diverticulosis Nonrheumatic aortic valve stenosis Calcification of abdominal aorta ([facility]) Missed vaccination due to patient refusal Tobacco abuse Alcohol use disorder in remission Atrial flutter, unspecified type ([facility]) RSV (acute bronchiolitis due to respiratory syncytial virus) Aortic stenosis Upper GI bleed S/P AVR Acute hypoxic respiratory failure ([facility]) Acute encephalopathy Pneumoperitoneum Gastric ulceration Severe malnutrition ([facility]) ([facility]) Pleural effusion Peritonitis due to fungus ([facility]) History of abdominal surgery Leg DVT (deep venous thromboembolism), acute, left (HCC) Ischemic ulcer of toe of left foot, 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) Tracheostomy dependence (HCC) Leukocytosis Decubitus ulcer of sacral region, unstageable (HCC) Pneumonia of both lungs due to methicillin susceptible Staphylococcus aureus (MSSA) (HCC) Sacral osteomyelitis (CMS/HCC) (HCC) Acute respiratory failure with hypoxia (HCC) [J96.01] Tracheostomy care ([facility]) [Z43.0] Pulmonary embolism (HCC) long term care pharmacist (current) use of antibiotics Complication of tracheostomy (CMS/HCC) (HCC) BRBPR (bright red blood per rectum) Hemoptysis [3] heparin, 5-30 Units/kg/hr, Last Rate: 18 Units/kg/hr (02/27/25 07) Pt called this RN into room and [...] and will see if the day shift sales secretary can put a request in. 2321- Notified Dr. Hathaway of patient complaint of SOB and worsening chest pain that he described as dull and tight. Vitals WDL. STAT EKG ordered, patient given Nitrostat, and troponin sent down. 2330- Notified POLICY CHANGE CLERK to assess the patient. Patient Name: Jun Snyder Patient : 1965 Acct: [id number] Date of Admission: 02/20/2025 [facility] A Code Status: Full Code Allergies: [...] - Before each treatment: Dialysis Machine No.: [id number] RO Machine Number: [id number] Dialyzer Lot No.: [id number] Tubing Lot Number: [id number] All Connections Secure: Yes Venous Parameters Set: Yes Arterial Parameters Set: Yes NS Bag: Yes Saline Line Double Clamped: Yes Dialyzer: Nipro Prime Volume (mL): 200 mL RO Machine Number: [id number] RO Machine Log Sheet Completed: Yes Machine Alarm Self Test: Completed, Passed (02/24/25 0810) Air Foam Detector: Tested, Proper Function, pH Reading Extracorporeal Circuit Tested for Integrity: Yes Machine Conductivity: 13.7 Manual Conductivity: 13.7 Manual Ph: 7 Bleach Test (Neg): Yes Bath Temperature: 36 C (96.8 F) Conductivity Meter Serial #: [id number] Machine Functioning Alarm Free? Yes Dialysis Bath: K+ (Potassium): 3 Ca+ (Calcium): 2.5 Na+ (Sodium): 137 HCO3 (Bicarb): 35 Bicarbonate Concentrate Lot No.: [id number] Acid Concentrate Lot No.: [id number] Chlorine Testing - Before each treatment and every 4 hours: Time On: 3 Time Off: 141 Treatment Goal: 2L Weight Height: 177.8 cm (5' 10") (02/23/25 141) Weight: 60.8 kg (134 lb) (05/30/25 1413) BMI (Calculated): 19.23 (02/23/25 1413) 1st [...] feed based on dietary recommendations) Provider Name: [facility] Provider Role: Hospitalist Method of Communication: Secure [...] Active Problem List Diagnosis Anemia Paroxysmal A-fib ([facility]) (HCC) HTN (hypertension) ESRD on hemodialysis ([facility]) (HCC) IgA nephropathy determined by biopsy of [...] failure with hypoxia (HCC) [J96.01] Tracheostomy care ([facility]) [Z43.0] Pulmonary embolism (HCC) long term care pharmacist (current) use of antibiotics Complication of tracheostomy (CMS/HCC) (HCC) BRBPR (bright red blood per rectum) Hemoptysis [3] heparin, 5-30 Units/kg/hr, Last Rate: 18 Units/kg/hr (02/24/25 1601) Patient continuing to order packages when he was instructed not to, multiple times, while at the hospital. Dispatch called [employer] and said a package came to the mailing section clerk but they will not have access to retreive until Wednesday morning. It is locked over the weekend. Wound Care consulted for Pressure Injury Prevention. Pt's Kee score= 13 on 02/23 Pt's pressure points assessed. Pt's Right Heel, Elbows, Occiput and ears all intact. Pt currently followed by Wound ALTERATION INSPECTOR group for wounds to left toes, left plantar heel, right wrist, and sacrum with wound vac. For left toes, left heel, right wrist, and sacral wound assessments and treatment plan, please see Wound/Ostomy ALTERATION INSPECTOR progress notes. [place] sheet noted at bedside and not on [...] Name: Jun Snyder Patient : 1965 Acct: [id number] Date of Admission: 02/20/2025 Room/Bed: W3-334/W3-334 A [...] Results Component Value Date/Time WBC 9.0 02/22/2025 0100 HGB 7.8 (L) 02/22/2025 0100 HGB 9.4 11/11/2024 0230 HCT 24.5 (L) 02/22/202599 PLT 282 02/22/202599 NA 132 (L) 02/22/202599 K 3.4 (L) 02/22/202599 CL 94 (L) 02/22/2025 010 CO2 25 02/22/202599 BUN 36 (H) 02/22/202599 CREATININE 3.99 (H) 02/22/202599 CREATININE 9.99 (H) 10/27/2019 0545 CALCIUM 9.2 02/22/202599 PHOS 3.2 02/22/202599 IV Drips and Rate/Dose Continuous Meds[3] Safety - Before each treatment: Dialysis Machine No.: [id number] RO Machine Number: [id number] Dialyzer Lot No.: [id number] Tubing Lot Number: [id number] All Connections Secure: Yes Venous Parameters Set: Yes Arterial Parameters Set: Yes NS Bag: Yes Saline Line Double Clamped: Yes Dialyzer: Nipro Prime Volume (mL): 200 mL RO Machine Number: [id number] RO Machine Log Sheet Completed: Yes Machine Alarm Self Test: Completed, Passed (test passed at 0938) (02/22/25 0940) Air Foam Detector: Tested, Proper Function, pH Reading Extracorporeal Circuit Tested for Integrity: Yes Machine Conductivity: 13.7 Manual Conductivity: 13.8 Manual Ph: 7 Bleach Test (Neg): Yes (water check negative at 1215) Bath Temperature: 36 C (96.8 F) Conductivity Meter Serial #: [id number] Machine Functioning Alarm Free? Yes Dialysis Bath: K+ (Potassium): 3 Ca+ (Calcium): 2 Na+ (Sodium): 137 HCO3 (Bicarb): 35 Bicarbonate Concentrate Lot No.: [id number] Acid Concentrate Lot No.: [id number] Chlorine Testing - Before each treatment and [...] 120 mmHg 90 600 Yes Brigitte Molina ALTERATION INSPECTOR at bedside, no voiced complaints. fluid removal [...] feed based on dietary recommendations) Provider Name: [facility] Provider Role: Hospitalist Method of Communication: Secure [...] Active Problem List Diagnosis Anemia Paroxysmal A-fib ([facility]) ([facility]) HTN (hypertension) ESRD on hemodialysis (CMS/HCC) (HCC) [...] failure with hypoxia (HCC) [J96.01] Tracheostomy care ([facility]) [Z43.0] Pulmonary embolism (HCC) long term care pharmacist (current) use of antibiotics Complication of tracheostomy [...] request. This RN spoke with RN at [facility] to verify medications that pt is [...] consuelo marten transport documented in this encounter [facility] 02-26-2025 Telephone encount er Note Called spoke with a nurse at the home he lives at. She declined to schedule any appointments at this time because they don't know when patient will be discharged. She said to call back once he is out the hospital. There is no other number to contact patient directly [facility] 02-26-2025 Miscellaneous Notes Formattin g of this [...] this? Thank you documented in this encounter [facility] 02-23-2025 Telephone encount er Note Called LM to call back and schedule CT and hospital follow up with any ARMIN [facility] 02-23-2025 Miscellaneous Notes Formattin g of this note might be different from the original. Called LM to call back and schedule CT and hospital follow up with any ARMIN Antonio, can we please schedule a 6-week CT scan for this patient and a follow-up appointment after this? Thank you documented in this encounter [facility] 02-23-2025 Consult note Formatting of th is [...] was bright red and it stopped just COPYWRITING INTERN when in transport. Reason for Consult: PEG [...] directed per After Visit Summary. 11/28/24 Yes Osiris Terrell APRN - [facility] ipratropium-albuterol (Duo-Neb) 0.5-2.5 mg/3 mL nebulizer solution [...] constipation). 02/21/25 Historical Provider, epoetin rowan-epbx (Retacrit) 32422 UNIT/ML injection Inject 0.79 mL (7,900 Units) [...] bilateral pleural effusions. 5. Cholelithiasis, and diminutive [place] kidneys. Report Dictated on Electronically Signed By: [...] Jaskaran Bey MD General Surgery PGY-2 Pager [phone] [1] Past Medical History: Diagnosis Date Acute renal failure (ARF) ([facility]) 10/19/2019 Anemia 12/30/2021 Calcification of abdominal aorta ([facility]) 10/08/202309/[address] abd Diverticulosis 10/08/2023 ESRD on hemodialysis ([facility]) ([facility]) 10/26/2019 Hemodialysis patient ([facility]) ([facility]) HTN (hypertension) 12/01/2022 Hypertension IgA nephropathy IgA nephropathy determined by biopsy of kidney 10/26/2019 Missed vaccination due to patient refusal 10/08/2023 Has a number of non-scientific based beliefs which interfere with his understanding and acceptance of the medical benefit of vaccination. Nonrheumatic aortic valve stenosis 10/08/2023 Paroxysmal A-fib ([facility]) ([facility]) 08/18/2023 Tobacco abuse 10/08/2023 [2] Past Surgical History: Procedure Laterality Date APPENDECTOMY CARDIAC CATHETERIZATION N/A 10/09/2024 Performed by Bob Watson MD at [facility] Cardiac Cath/EP Lab CARDIAC CATHETERIZATION Bilateral 11/01/2024 Performed by Bob Watson MD at [facility] Cardiac Cath/EP Lab CARDIAC CATHETERIZATION N/A 11/01/2024 Performed by Bob Watson MD at [facility] Cardiac Cath/EP Lab COLONOSCOPY N/A 01/24/2025 Performed by Chadd Davis MD at [facility] ENDOSCOPY FISTULAGRAM (HISTORICAL) Left 09/15/2021 LEFT UPPER ARM HX AV FISTULA CREATION IR EMBOLIZATION 10/14/2024 IR EMBOLIZATION 10/14/2024 [facility] SPECIAL PROCEDURES IR FISTULAGRAM 08/07/2022 IR FISTULAGRAM 08/07/2022 [facility] IR IMAGING TONSILLECTOMY (HISTORICAL) [3] Social History [...] 0 min Stress: Stress Concern Present (02/21/2025) [facility] [place] [facility] [employer] - Occupational Stress Questionnaire Feeling of Stress : To some extent Social Connections: Unknown (02/21/2025) Social Connection and Isolation Panel [NHANES] Frequency of Communication with Friends and Family: More than three times a week Frequency of Social Gatherings with Friends and Family: Patient declined Attends Confucianism Services: Patient declined Active Member of Clubs [...] minutes (including chart/data review/analysis, care coordination, and [id number] encounter), and was spent discussing/counseling the patient/family [...] Care Surgery Department of Surgery [facility] Pager: [phone] ~~~~~~~~~~~~~~~~~~~~~~~~~~~~~~~~ ~~~~~~~~~~~~~~~~~~~~~~~~~~~~~ This note may have been dictated using TRA Medical Practice Edition 2.6 and/or [employer] Voice Recognition Feature. The document was proofread; however, unrecognized voice recognition expert witness errors may be present. [1] Patient Active Problem List Diagnosis Anemia Paroxysmal A-fib (CMS/HCC) (HCC) HTN (hypertension) ESRD on hemodialysis (CMS/HCC) ([facility]) IgA nephropathy determined by biopsy of kidney [...] (CMS/HCC) (HCC) Acute respiratory failure with hypoxia ([facility]) [J96.01] Tracheostomy care ([facility]) [Z43.0] Pulmonary embolism ([facility]) MCC (current) use of antibiotics Complication of tracheostomy (CMS/HCC) (HCC) BRBPR (bright red blood per rectum) Hemoptysis Associated Order(s): IP CONSULT TO INFECTIOUS DISEASES Images from the original note were not included. [facility] - Infectious Diseases Attending Consult [...] bilateral pleural effusions. 5. Cholelithiasis, and diminutive [place] kidneys. Past Medical History: Medical History[1] Past [...] 0 min Stress: Stress Concern Present (02/21/2025) [place] [employer] - Occupational Stress Questionnaire Feeling of Stress : To some extent Social Connections: Unknown (02/21/2025) Social Connection and Isolation Panel [NHANES] Frequency of Communication with Friends and Family: More than three times a week Frequency of Social Gatherings with Friends and Family: Patient declined Attends Confucianism Services: Patient declined Active Member of Clubs [...] inflammation Lines: sites clean Labs: Recent Labs 02/20/25182402/21/25 0053 02/22/25 0100 NA 133* 131* 132* K 3.1* 3.1* 3.4* CL 92* 91* 94* CO2 28 25 BUN 29* 29* 36* CREATININE 2.57* 2.89* 3.99* GLUCOSE 80 74 121* CALCIUM 9.6 9.3 9.2 PROT -- 6.8 6.7 BILITOT -- 0.8 0.6 ALKPHOS -- 120 120 AST -- 39* 35* ALT -- 8 9 PROCAL -- 0.68* -- Recent Labs 02/20/25182402/21/25 0053 02/22/25 0100 WBC [...] History: Diagnosis Date Acute renal failure (ARF) ([facility]) 10/19/2019 Anemia 12/30/2021 Calcification of abdominal aorta ([facility]) 10/08/202309/[address] abd Diverticulosis 10/08/2023 ESRD on hemodialysis ([facility]) ([facility]) 10/26/2019 Hemodialysis patient ([facility]) ([facility]) HTN (hypertension) 12/01/2022 Hypertension IgA nephropathy IgA nephropathy determined by biopsy of kidney 10/26/2019 Missed vaccination due to patient refusal 10/08/2023 Has a number of non-scientific based beliefs which interfere with his understanding and acceptance of the medical benefit of vaccination. Nonrheumatic aortic valve stenosis 10/08/2023 Paroxysmal A-fib ([facility]) ([facility]) 08/18/2023 Tobacco abuse 10/08/2023 [2] Past Surgical History: Procedure Laterality Date APPENDECTOMY CARDIAC CATHETERIZATION N/A 10/09/2024 Performed by Bob Watson MD at [facility] Cardiac Cath/EP Lab CARDIAC CATHETERIZATION Bilateral 11/01/2024 Performed by Bob Watson MD at [facility] Cardiac Cath/EP Lab CARDIAC CATHETERIZATION N/A 11/01/2024 Performed by Bob Watson MD at [facility] Cardiac Cath/EP Lab COLONOSCOPY N/A 01/24/2025 Performed by Chadd Davis MD at [facility] ENDOSCOPY FISTULAGRAM (HISTORICAL) Left 09/15/2021 LEFT UPPER ARM HX AV FISTULA CREATION IR EMBOLIZATION 10/14/2024 IR EMBOLIZATION 10/14/2024 [facility] SPECIAL PROCEDURES IR FISTULAGRAM 08/07/2022 IR FISTULAGRAM 08/07/2022 [facility] IR IMAGING TONSILLECTOMY (HISTORICAL) [3] Current Facility-Administered [...] PRN Bettye Pierre MD 5 mg at 05/29/25 0809 pantoprazole (ProtoNix) EC tablet 40 mg [...] 9:31 AM Jolie Uribe RPh (available on Renkoo) Associated Order(s): INPATIENT CONSULT TO WOUND CARE PROVIDERS Images from the original note were not included. [facility] Wound Care/NPWT Progress Note Jun [...] with PO pain medication, per staff nurse midwife, prior to wound VAC dressing change. Wet [...] apply Betadine and allow to dry, leave SUPERVISOR SHIPFITTERS daily and PRN Left plantar heel - [...] follow Recommend to follow up at [facility] Outpatient wound care center after hospital [...] History: Diagnosis Date Acute renal failure (ARF) ([facility]) 10/19/2019 Anemia 12/30/2021 Calcification of abdominal aorta ([facility]) 10/08/202309/[address] abd Diverticulosis 10/08/2023 ESRD on hemodialysis ([facility]) ([facility]) 10/26/2019 Hemodialysis patient ([facility]) ([facility]) HTN (hypertension) 12/01/2022 Hypertension IgA nephropathy IgA nephropathy determined by biopsy of kidney 10/26/2019 Missed vaccination due to patient refusal 10/08/2023 Has a number of non-scientific based beliefs which interfere with his understanding and acceptance of the medical benefit of vaccination. Nonrheumatic aortic valve stenosis 10/08/2023 Paroxysmal A-fib ([facility]) ([facility]) 08/18/2023 Tobacco abuse 10/08/2023 [2] Past Surgical History: Procedure Laterality Date APPENDECTOMY CARDIAC CATHETERIZATION N/A 10/09/2024 Performed by Bob Watson MD at [facility] Cardiac Cath/EP Lab CARDIAC CATHETERIZATION Bilateral 11/01/2024 Performed by Bob Watson MD at [facility] Cardiac Cath/EP Lab CARDIAC CATHETERIZATION N/A 11/01/2024 Performed by Bob Watson MD at [facility] Cardiac Cath/EP Lab COLONOSCOPY N/A 01/24/2025 Performed by Chadd Davis MD at [facility] ENDOSCOPY FISTULAGRAM (HISTORICAL) Left 09/15/2021 LEFT UPPER ARM HX AV FISTULA CREATION IR EMBOLIZATION 10/14/2024 IR EMBOLIZATION 10/14/2024 [facility] SPECIAL PROCEDURES IR FISTULAGRAM 08/07/2022 IR [...] needed (PRN constipation). [DISCONTINUED] epoetin rowan-epbx (Retacrit) 35990 UNIT/ML injection Inject 0.79 mL (7,900 Units) [...] & deltoids) Fluid Accumulation: Unable to assess Pull Tab Dealer Strength: Not Performed Nutrition Assessment: 59yo male [...] to Regular this morning. At [facility] diet was Potassium Restricted/Mech Soft/Thin [...] Total Energy Requirements (kcals/day): 30-35 kcal/kg = 4430-7002 kcal Weight Used for Protein Requirements: Current [...] lb) (08/28/24) % Weight Change (Calculated): -34.6 [place] Body Weight (lbs) (Calculated): 166 lbs [place] Body Weight (Kg) (Calculated): 75 kg % [place] Body Weight (Calculated): 81.1 % BMI (kg/m2) [...] soon to determine Jade Rodriguez RD Contact: Caliber Data or *[phone] Associated Order(s): INPATIENT CONSULT TO WOUND CARE PROVIDERS Images from the original note were not included. [facility] Wound Care CONSULT Note Jun [...] follow Recommend to follow up at [facility] Outpatient wound care center after hospital [...] History: Diagnosis Date Acute renal failure (ARF) ([facility]) 10/19/2019 Anemia 12/30/2021 Calcification of abdominal aorta (HCC) 10/08/202309/[address] abd Diverticulosis 10/08/2023 ESRD on hemodialysis (CMS/HCC) ([facility]) 10/26/2019 Hemodialysis patient ([facility]) ([facility]) HTN (hypertension) 12/01/2022 Hypertension IgA nephropathy IgA nephropathy determined by biopsy of kidney 10/26/2019 Missed vaccination due to patient refusal 10/08/2023 Has a number of non-scientific based beliefs which interfere with his understanding and acceptance of the medical benefit of vaccination. Nonrheumatic aortic valve stenosis 10/08/2023 Paroxysmal A-fib ([facility]) ([facility]) 08/18/2023 Tobacco abuse 10/08/2023 [2] Past Surgical History: Procedure Laterality Date APPENDECTOMY CARDIAC CATHETERIZATION N/A 10/09/2024 Performed by Bob Watson MD at [facility] Cardiac Cath/EP Lab CARDIAC CATHETERIZATION Bilateral 11/01/2024 Performed by Bob Watson MD at [facility] Cardiac Cath/EP Lab CARDIAC CATHETERIZATION N/A 11/01/2024 Performed by Bob Watson MD at [facility] Cardiac Cath/EP Lab COLONOSCOPY N/A 01/24/2025 Performed by Chadd Davis MD at [facility] ENDOSCOPY FISTULAGRAM (HISTORICAL) Left 09/15/2021 LEFT UPPER ARM HX AV FISTULA CREATION IR EMBOLIZATION 10/14/2024 IR EMBOLIZATION 10/14/2024 [facility] SPECIAL PROCEDURES IR FISTULAGRAM 08/07/2022 IR [...] needed (PRN constipation). [DISCONTINUED] epoetin rowan-epbx (Retacrit) 18581 UNIT/ML injection Inject 0.79 mL (7,900 Units) under the skin 1 (one) time per week. (Patient not taking: Reported on 02/21/2025) [DISCONTINUED] pantoprazole (ProtoNix) 40 MG injection Infuse 40 mg into a venous catheter 2 times daily. Cosigned by Ahsan Gill DO at 02/26/2025 4:59 PM EDT Associated Order(s): IP CONSULT TO PULMONOLOGY Images from the original note were not included. [facility], Pulmonary Medicine [phone] PULMONARY CONSULTATION NOTE. Patient - Jun Snyder, [...] Dose Status acetaminophen (Tylenol) 325 MG tablet [id number] No Take 650 mg by mouth every 6 hours as needed for mild pain (1-3) or fever. Patient not taking: Reported on 02/21/2025 Historical ProviderMD Unknown Active Ampicillin-Sulbactam Sodium (UNASYN IV) [id number] Infuse 3 g into a venous catheter Every 24 hours. Historical ProviderMD 02/14/25 0751 B complex-vitamin C-folic acid (Nephro-Nato Rx) 1 MG tablet [id number] Take 1 tablet by mouth daily. Historical ProviderMD Active bisacodyl (Dulcolax) 5 MG EC tablet [id number] Take 5 mg by mouth Daily as needed for constipation. Do not crush, chew, or split. Historical ProviderMD Active bisacodyl (Dulcolax) 5 mg split suppository [id number] Insert 10 mg into the rectum Daily as needed (PRN constipation). Historical ProviderMD Active epoetin rowan-epbx (Retacrit) 04303 UNIT/ML injection [id number] No Inject 0.79 mL (7,900 Units) under the skin 1 (one) time per week. Patient not taking: Reported on 02/21/2025 DENIA Girard CNP Unknown Active ipratropium-albuterol (Duo-Neb) 0.5-2.5 mg/3 mL nebulizer solution [id number] Yes Take 3 mL by nebulization every 8 hours. DENIA Girard CNP Past Week Active Lidocaine 4 % patch [id number] Apply 1 patch topically daily. DENIA Girard CNP Active magnesium hydroxide (Milk of Magnesia) 800 MG/5ML suspension [id number] Take 30 mL by mouth Daily as needed for constipation (if no bm in 3 days). Historical ProviderMD Active melatonin 5 MG tablet [id number] 1 tablet (5 mg) by Per G Tube route Nightly as needed (insomnia). DENIA Girard CNP Active metoprolol tartrate (Lopressor) 25 MG tablet [id number] 1 tablet (25 mg) by Per G Tube route 2 times daily. DENIA Girard CNP Active midodrine (Proamatine) 5 MG tablet [id number] 3 tablets (15 mg) by Per G Tube route every 6 hours. DENIA Girard CNP 02/14/25 2352 naloxone in sodium chloride (PF) injection injection [id number] Inject 0.04 mg into the shoulder, thigh, or buttocks as needed for opioid reversal or respiratory depression. Historical ProviderMD Active oxyCODONE (Roxicodone) 5 MG immediate release tablet [id number] Take 1 tablet (5 mg) by mouth every 6 hours as needed for moderate pain (4-6) for up to 5 days. Barb Dawkins MD 02/14/25 235 pantoprazole (ProtoNix) 40 MG injection [id number] Infuse 40 mg into a venous catheter 2 times daily. DENIA Girard CNP Active QUEtiapine (SEROquel) 25 MG tablet [id number] 1 tablet (25 mg) by Per G Tube route Nightly. DENIA Girard CNP 02/14/25 2359 sevelamer (Renagel) 800 MG tablet [id number] Take 800 mg by mouth 3 times daily (with meals). Swallow tablet whole; do not crush, break, or chew. Give with meals for CKD/dialysis Historical Provider, Active warfarin (Coumadin) 1 MG tablet [id number] Yes Take as directed per After Visit [...] Performed by Bob Watson MD at [facility] Cardiac Cath/EP Lab CARDIAC CATHETERIZATION Bilateral 11/01/2024 Performed by Bob Watson MD at [facility] Cardiac Cath/EP Lab CARDIAC CATHETERIZATION N/A 11/01/2024 Performed by Bob Watson MD at [facility] Cardiac Cath/EP Lab COLONOSCOPY N/A 01/24/2025 Performed by Chadd Davis MD at [facility] ENDOSCOPY FISTULAGRAM (HISTORICAL) Left 09/15/2021 LEFT UPPER ARM HX AV FISTULA CREATION IR EMBOLIZATION 10/14/2024 IR EMBOLIZATION 10/14/2024 [facility] SPECIAL PROCEDURES IR FISTULAGRAM 08/07/2022 IR [...] PM EDT I have personally performed a [id number] diagnostic evaluation on this patient on date of service 02/21/2025. History, labs, imaging studies, and electronic medical record have been reviewed by me. This note documented by the [x]visiting housekeeper []ARMIN reflects my history, exam, and medical [...] RA Associated Order(s): IP CONSULT TO NEPHROLOGY [facility] [address] [place], [place] [id number] Consult Note Patient's Name: Jun Snyder 10:29 [...] bilateral pleural effusions. 5. Cholelithiasis, and diminutive [place] kidneys. Assessment and Plan: 59 y.o. male [...] any questions or concerns Bree Molina APRN ALCOHOL STILL OPERATOR A-G ALTERATION INSPECTOR [facility] [phone] Pt seen and examined independently by me. I reviewed with PASSENGER FLAGMAN-ALCOHOL STILL OPERATOR the medical history and the findings on physical examination. I discussed the patient s diagnosis and concur with the treatment plan as documented in his note. Please call [phone] or message me through [employer] with any questions or concerns. [1] Past Medical History: Diagnosis Date Acute renal failure (ARF) ([facility]) 10/19/2019 Anemia 12/30/2021 Calcification of abdominal aorta ([facility]) 10/08/202309/[address] abd Diverticulosis 10/08/2023 ESRD on hemodialysis ([facility]) ([facility]) 10/26/2019 Hemodialysis patient ([facility]) ([facility]) HTN (hypertension) 12/01/2022 Hypertension IgA nephropathy IgA nephropathy determined by biopsy of kidney 10/26/2019 Missed vaccination due to patient refusal 10/08/2023 Has a number of non-scientific based beliefs which interfere with his understanding and acceptance of the medical benefit of vaccination. Nonrheumatic aortic valve stenosis 10/08/2023 Paroxysmal A-fib ([facility]) ([facility]) 08/18/2023 Tobacco abuse 10/08/2023 [2] Past Surgical History: Procedure Laterality Date APPENDECTOMY CARDIAC CATHETERIZATION N/A 10/09/2024 Performed by Bob Watson MD at [facility] Cardiac Cath/EP Lab CARDIAC CATHETERIZATION Bilateral 11/01/2024 Performed by Bob Watson MD at [facility] Cardiac Cath/EP Lab CARDIAC CATHETERIZATION N/A 11/01/2024 Performed by Bob Watson MD at [facility] Cardiac Cath/EP Lab COLONOSCOPY N/A 01/24/2025 Performed by Chadd Davis MD at [facility] ENDOSCOPY FISTULAGRAM (HISTORICAL) Left 09/15/2021 LEFT UPPER ARM HX AV FISTULA CREATION IR EMBOLIZATION 10/14/2024 IR EMBOLIZATION 10/14/2024 [facility] SPECIAL PROCEDURES IR FISTULAGRAM 08/07/2022 IR FISTULAGRAM 08/07/2022 [facility] IR IMAGING TONSILLECTOMY (HISTORICAL) [3] Family History Problem Relation Name Age of Onset No Known Problems Mother No Known Problems Father documented in this encounter [facility] 02-23-2025 Telephone encount er Note Antonio, can we please schedule a 6-week CT scan for this patient and a follow-up appointment after this? Thank you [facility] 02-22-2025 Hospital Discharg e instructions Anthony Hurtado, DO - 02/22/2025 2:54 PM EDT Images from the original note were not included. Continuity of Care Form Patient Name: Jun Snyder : 1965 Admit date: 02/20/2025 Discharge date: 03/05/2025 Code Status Order: Full Code Advance Directives: Y Admitting Physician: Bettye Pierre MD PCP: Leilani Troncoso Discharging Nurse: Discharging Hospital Unit/Room#: [id number] A Discharging Unit Emergency Contact: Extended Emergency Contact Information Primary Emergency Contact: Omar Snyder Mobile Relation: Child Secondary Emergency Contact: Toma Mcneil Mobile Relation: Partner Past Surgical History: Past Surgical History: Procedure Laterality Date APPENDECTOMY CARDIAC CATHETERIZATION N/A 10/09/2024 Performed by Bob Watson MD at [facility] Cardiac Cath/EP Lab CARDIAC CATHETERIZATION Bilateral 11/01/2024 Performed by Bob Watson MD at [facility] Cardiac Cath/EP Lab CARDIAC CATHETERIZATION N/A 11/01/2024 Performed by Bob Watson MD at [facility] Cardiac Cath/EP Lab COLONOSCOPY N/A 01/24/2025 Performed by Chadd Davis MD at [facility] ENDOSCOPY FISTULAGRAM (HISTORICAL) Left 09/15/2021 LEFT UPPER ARM HX AV FISTULA CREATION IR EMBOLIZATION 10/14/2024 IR EMBOLIZATION 10/14/2024 [facility] SPECIAL PROCEDURES IR FISTULAGRAM 08/07/2022 IR FISTULAGRAM 08/07/2022 [facility] IR IMAGING TONSILLECTOMY (HISTORICAL) Immunization History: Immunization [...] to breakdown of skin (HCC) Tracheostomy dependence ([facility]) Leukocytosis Decubitus ulcer of sacral region, unstageable (HCC) Pneumonia of both lungs due to methicillin susceptible Staphylococcus aureus (MSSA) (HCC) Sacral osteomyelitis (CMS/HCC) (HCC) Acute respiratory failure with hypoxia ([facility]) [J96.01] Tracheostomy care ([facility]) [Z43.0] Pulmonary embolism ([facility]) long term care pharmacist (current) use of antibiotics Complication of tracheostomy (CMS/HCC) (HCC) Anemia Aortic stenosis Upper GI bleed S/P AVR Acute hypoxic respiratory failure ([facility]) Acute encephalopathy Pneumoperitoneum BRBPR (bright red blood [...] Minimal assistance Toileting Minimal assistance Feeding Independent Inside Sales Advisor Minimal assistance Med Delivery yes Wound Care [...] 02/21/25 05 Drainage Description Unable to assess 02/21/25511 Drainage Amount Unable to assess 02/21/25511 Treatments [...] Date: 02/20/25 Discharging to Facility/ Agency Name: [facility] Address: [address] [place] [address] Dialysis Facility (if applicable) Name: Address: Dialysis Schedule: Phone: Fax: Caustic Room Operator/Grey Goods Tester signature: ICIAN SECTION Name: Jun Snyder Prognosis: [...] to a nursing facility directly from an [facility] or a unit of a hospital that is not operated by or licensed by [facility] under section 5119.14 or 5160-3-15.1 5 The [...] - 1 mg documented in this encounter [facility] 02-21-2025 Telephone encount er Note Name of caller: Padmini Contact phone number: [phone] Relationship to Patient: [facility] Provider: Mariano Practice: Infectious Disease Chief Complaint/Reason for Call: [facility] need a routine consult for this patient for Hemoptysis Cavitary lung lesion. Please advise Padmini Best time of day caller can be reached: any Patient advised that office/PCP has 24-48 business hours to return their call: Yes [facility] 02-21-2025 Miscellaneous Notes Formattin g of this note might be different from the original. Name of caller: Padmini Contact phone number: [phone] Relationship to Patient: [facility] Provider: Mariano Practice: Infectious Disease Chief Complaint/Reason for Call: [facility] need a routine consult for this patient for Hemoptysis Cavitary lung lesion. Please advise Padmini Best time of day caller can be reached: any Patient advised that office/PCP has 24-48 business hours to return their call: Yes documented in this encounter [facility] 02-21-2025 Note Referral placed to [facility] via [facility] per TCC request. Await review and response regarding ability to accept. TCC notified. Electronically signed by [facility] Sabino [facility] 02-20-2025 History and physical note Attending History [...] bilateral pleural effusions. 5. Cholelithiasis, and diminutive [place] kidneys. Past Medical History: Past Medical History: Diagnosis Date Acute renal failure (ARF) ([facility]) 10/19/2019 Anemia 12/30/2021 Calcification of abdominal aorta ([facility]) 10/08/202309/[address] abd Diverticulosis 10/08/2023 ESRD on hemodialysis ([facility]) ([facility]) 10/26/2019 Hemodialysis patient ([facility]) ([facility]) HTN (hypertension) 12/01/2022 Hypertension IgA nephropathy IgA nephropathy determined by biopsy of kidney 10/26/2019 Missed vaccination due to patient refusal 10/08/2023 Has a number of non-scientific based beliefs which interfere with his understanding and acceptance of the medical benefit of vaccination. Nonrheumatic aortic valve stenosis 10/08/2023 Paroxysmal A-fib ([facility]) ([facility]) 08/18/2023 Tobacco abuse 10/08/2023 Past Surgical History: [...] Patient Unable To Answer (12/01/2024) Received from [facility] Overall Financial Resource Strain (CARDIA) Difficulty of Paying Living Expenses: Patient unable to answer Food Insecurity: Patient Unable To Answer (12/01/2024) Received from [facility] Hunger Vital Sign Worried About Running Out of Food in the Last Year: Patient unable to answer Ran Out of Food in the Last Year: Patient unable to answer Transportation Needs: No Transportation Needs (01/18/2025) Received from [facility] SDOH Transportation Source Has lack of transportation kept you from medical appointments or from getting medications?: No Has lack of transportation kept you from meetings, work, or from getting things needed for daily living?: No Physical Activity: Not on file Stress: No Stress Concern Present (01/18/2025) Received from [facility] of Occupational Health - Occupational Stress Questionnaire Feeling of Stress : Not at all Social Connections: Patient Unable To Answer (12/01/2024) Received from [facility] Social Connection and Isolation Panel [NHANES] Frequency of Communication with Friends and Family: Patient unable to answer Frequency of Social Gatherings with Friends and Family: Patient unable to answer Attends Confucianism Services: Patient unable to answer Active Member of Clubs or Organizations: Patient unable to answer Attends Club or Organization Meetings: Patient unable to answer Marital Status: Patient unable to answer Intimate Partner Violence: Patient Unable To Answer (11/28/2024) Received from [facility] Domestic Abuse Assessment Do you feel safe in your relationships at home?: Unable to assess Physical Abuse: Unable to assess [facility] Domestic Abuse - Type of Abuse: Not on file [facility] Domestic Abuse - Time Frame: Not on file [facility] Domestic Abuse - Signs and Symptoms: Not on file Verbal Abuse: Unable to assess [facility] Domestic Abuse - Reported To: Not on file Housing Stability: Patient Unable To Answer (12/01/2024) Received from [facility] Housing Stability Vital Sign Unable [...] MD Division of Hospital Medicine Inpatient Medical Services/[facility] [1] Past Surgical History: Procedure Laterality Date APPENDECTOMY CARDIAC CATHETERIZATION N/A 10/09/2024 Performed by Bob Watson MD at [facility] Cardiac Cath/EP Lab CARDIAC CATHETERIZATION Bilateral 11/01/2024 Performed by Bob Watson MD at [facility] Cardiac Cath/EP Lab CARDIAC CATHETERIZATION N/A 11/01/2024 Performed by Bob Watson MD at [facility] Cardiac Cath/EP Lab COLONOSCOPY N/A 01/24/2025 Performed by Chadd Davis MD at [facility] ENDOSCOPY FISTULAGRAM (HISTORICAL) Left 09/15/2021 LEFT UPPER ARM HX AV FISTULA CREATION IR EMBOLIZATION 10/14/2024 IR EMBOLIZATION 10/14/2024 [facility] SPECIAL PROCEDURES IR FISTULAGRAM 08/07/2022 IR FISTULAGRAM 08/07/2022 [facility] IR IMAGING TONSILLECTOMY (HISTORICAL) [2] Family History Problem Relation Name Age of Onset No Known Problems Mother No Known Problems Father [3] Allergies Allergen Reactions Lisinopril Swelling and Angioedema documented in this encounter [facility] 02-20-2025 Note [facility] 02-20-2025 Emergency department Note Called [...] was bright red and it stopped just COPYWRITING INTERN when in transport. HISTORY OF PRESENT ILLNESS [...] CURRENT MEDICATIONS Previous Medications EPOETIN ROWAN-EPBX (RETACRIT) 53944 UNIT/ML INJECTION Inject 0.79 mL (7,900 Units) [...] Triage Vitals Temp Heart Rate Resp BP 02/20/25175002/20/25175002/20/25175002/20/25 175 36.6 C (97.9 F) 86 18 135/81 SpO2 Temp Source Heart Rate Source Patient Position 02/20/25201202/20/25 17502/20/25175002/20/251750 99 % Oral Monitor Lying BP Location [...] bilateral pleural effusions. 5. Cholelithiasis, and diminutive [place] kidneys. Report Dictated on Electronically Signed By: [...] of hemoptysis, he will be admitted at [facility] under the hospitalist service in case [...] History: Diagnosis Date Acute renal failure (ARF) ([facility]) 10/19/2019 Anemia 12/30/2021 Calcification of abdominal aorta ([facility]) 10/08/202309/[address] abd Diverticulosis 10/08/2023 ESRD on hemodialysis ([facility]) ([facility]) 10/26/2019 Hemodialysis patient ([facility]) ([facility]) HTN (hypertension) 12/01/2022 Hypertension IgA nephropathy IgA nephropathy determined by biopsy of kidney 10/26/2019 Missed vaccination due to patient refusal 10/08/2023 Has a number of non-scientific based beliefs which interfere with his understanding and acceptance of the medical benefit of vaccination. Nonrheumatic aortic valve stenosis 10/08/2023 Paroxysmal A-fib ([facility]) ([facility]) 08/18/2023 Tobacco abuse 10/08/2023 [2] Past Surgical History: Procedure Laterality Date APPENDECTOMY CARDIAC CATHETERIZATION N/A 10/09/2024 Performed by Bob Watson MD at [facility] Cardiac Cath/EP Lab CARDIAC CATHETERIZATION Bilateral 11/01/2024 Performed by Bob Watson MD at [facility] Cardiac Cath/EP Lab CARDIAC CATHETERIZATION N/A 11/01/2024 Performed by Bob Watson MD at [facility] Cardiac Cath/EP Lab COLONOSCOPY N/A 01/24/2025 Performed by Chadd Davis MD at [facility] ENDOSCOPY FISTULAGRAM (HISTORICAL) Left 09/15/2021 LEFT UPPER ARM HX AV FISTULA CREATION IR EMBOLIZATION 10/14/2024 IR EMBOLIZATION 10/14/2024 [facility] SPECIAL PROCEDURES IR FISTULAGRAM 08/07/2022 IR [...] Unable To Answer (12/01/2024) Received from [facility] Overall Financial Resource Strain (CARDIA) Difficulty of Paying Living Expenses: Patient unable to answer Food Insecurity: Patient Unable To Answer (12/01/2024) Received from [facility] Hunger Vital Sign Worried About Running Out of Food in the Last Year: Patient unable to answer Ran Out of Food in the Last Year: Patient unable to answer Transportation Needs: No Transportation Needs (01/18/2025) Received from [facility] [place] Transportation Source Has lack of transportation kept you from medical appointments or from getting medications?: No Has lack of transportation kept you from meetings, work, or from getting things needed for daily living?: No Stress: No Stress Concern Present (01/18/2025) Received from [facility] [place] of Occupational Health - Occupational Stress Questionnaire Feeling of Stress : Not at all Social Connections: Patient Unable To Answer (12/01/2024) Received from [facility] Social Connection and Isolation Panel [NHANES] Frequency of Communication with Friends and Family: Patient unable to answer Frequency of Social Gatherings with Friends and Family: Patient unable to answer Attends Confucianism Services: Patient unable to answer Active Member of Clubs or Organizations: Patient unable to answer Attends Club or Organization Meetings: Patient unable to answer Marital Status: Patient unable to answer Intimate Partner Violence: Patient Unable To Answer (11/28/2024) Received from [facility] Domestic Abuse Assessment Do you feel safe in your relationships at home?: Unable to assess Physical Abuse: Unable to assess Verbal Abuse: Unable to assess Housing Stability: Patient Unable To Answer (12/01/2024) Received from [facility] Housing Stability Vital Sign Unable to [...] was bright red and it stopped just COPYWRITING INTERN when in transport. documented in this encounter [facility] 02-14-2025 History of Presen t illness Narrative Images from the original note were not included. [facility] Infectious Diseases Advanced Practice Provider Outpatient Progress Note HISTORYOF PRESENT ILLNESS 59 yo male with PMHx significant for ESRD on HD via AVF, HTN, PAD who was admitted at [facility] (10/03/24-11/28/24) where he underwent AVR (10/12/24). [...] and Anidulafungin. Patient was discharged to [facility] 11/28/24 where he was followed by our ID group for recurrent MSSA LRTI. He additionally had a sacral wound that was debrided to bone 01/02/25 (Sacral wound Cx + E faecalis, Clostridium clostridioforme). He was on a course of Amp-Sulbactam planned for 6 weeks through 02/13/25 and discharged to SNF 01/18/25. Patient then presented to [facility] 01/19 after inadvertently self-dislodging tracheostomy. He was transferred to [facility] ICU for airway management and to determine if replacement tracheostomy was needed; decision was made to leave tracheostomy out. He was transferred to [facility] same day. 01/20 GI and critical [...] Unable To Answer (12/01/2024) Received from [facility] Overall Financial Resource Strain (CARDIA) Difficulty of Paying Living Expenses: Patient unable to answer Food Insecurity: Patient Unable To Answer (12/01/2024) Received from [facility] Hunger Vital Sign Worried About Running Out of Food in the Last Year: Patient unable to answer Ran Out of Food in the Last Year: Patient unable to answer Transportation Needs: No Transportation Needs (01/18/2025) Received from [facility] Transportation Source Has lack of transportation kept you from medical appointments or from getting medications?: No Has lack of transportation kept you from meetings, work, or from getting things needed for daily living?: No Physical Activity: Not on file Stress: No Stress Concern Present (01/18/2025) Received from [facility] [place] [facility] [employer] [facility] - Occupational Stress Questionnaire Feeling of Stress : Not at all Social Connections: Patient Unable To Answer (12/01/2024) Received from [facility] Social Connection and Isolation Panel [NHANES] Frequency of Communication with Friends and Family: Patient unable to answer Frequency of Social Gatherings with Friends and Family: Patient unable to answer Attends Confucianism Services: Patient unable to answer Active Member of Clubs or Organizations: Patient unable to answer Attends Club or Organization Meetings: Patient unable to answer Marital Status: Patient unable to answer Intimate Partner Violence: Patient Unable To Answer (11/28/2024) Received from [facility] Domestic Abuse Assessment Do you feel safe in your relationships at home?: Unable to assess Physical Abuse: Unable to assess [facility] Domestic Abuse - Type of Abuse: Not on file [facility] Domestic Abuse - Time Frame: Not on file [facility] Domestic Abuse - Signs and Symptoms: Not on file Verbal Abuse: Unable to assess [facility] Domestic Abuse - Reported To: Not on file Housing Stability: Patient Unable To Answer (12/01/2024) Received from [facility] Housing Stability Vital Sign Unable to [...] neg 01/22 Acinetobacter baumannii PCR: neg Previous ([facility]) 01/02- sacral wound cx- E faecalis [...] accounting for open encounter. Mikala MORAN PA-C [facility] Infectious Disease [1] Past Medical History: Diagnosis Date Acute renal failure (ARF) ([facility]) 10/19/2019 Anemia 12/30/2021 Calcification of abdominal aorta ([facility]) 10/08/202309/[address] abd Diverticulosis 10/08/2023 ESRD on hemodialysis ([facility]) ([facility]) 10/26/2019 Hemodialysis patient ([facility]) ([facility]) HTN (hypertension) 12/01/2022 Hypertension IgA nephropathy IgA nephropathy determined by biopsy of kidney 10/26/2019 Missed vaccination due to patient refusal 10/08/2023 Has a number of non-scientific based beliefs which interfere with his understanding and acceptance of the medical benefit of vaccination. Nonrheumatic aortic valve stenosis 10/08/2023 Paroxysmal A-fib ([facility]) ([facility]) 08/18/2023 Tobacco abuse 10/08/2023 [2] Family History Problem Relation Name Age of Onset No Known Problems Mother No Known Problems Father documented in this encounter [facility] 02-02-2025 History of Presen t illness Narrative Images from the original note were not included. Pt discharged to [facility] on 02/01/25. Updated tracker with hospital doses. Warfarin dosing instructions: 0.5 mg per day. New interacting meds: N/a Next SAILAJA appt: post SNF documented in this encounter [facility] 02-02-2025 History of Presen t illness Narrative Images from the original note were not included. Pt discharged to [facility] on 02/01/25. Updated tracker with hospital doses. Warfarin dosing instructions: 0.5 mg per day. New interacting meds: N/a Next SAILAJA appt: post SNF Patient is still at [facility] ([phone]). I left a message for ELIA Anderson, regarding discharge plans. documented in this encounter [facility] 02-02-2025 History of Presen t illness Narrative Images from the original note were not included. Pt discharged to [facility] on 02/01/25. Updated tracker with hospital doses. Warfarin dosing instructions: 0.5 mg per day. New interacting meds: N/a Next SAILAJA appt: post SNF Patient is still at [facility] ([phone]). I left a message for ELIA Anderson, [...] readmitted on 02/20 and discharged back to [facility] on 03/05. documented in this encounter [facility] 02-01-2025 Nurse Note Transport here to take patient to [facility]. Wound Vac tubing clamped and disconnected from wound vac. Facility will determine if tubing is compatible with their wound vacs. Wound Vac Dressing leaking with foam falling out. Dressing removed and W-D drsg applied. Patient Name: Jun Snyder Patient : 1965 Acct: [id number] Date of Admission: 01/19/2025 [facility] A Code Status: Full Code Allergies: Allergies Allergen Reactions Lisinopril Swelling and Angioedema Diagnosis: Patient Active Problem List Diagnosis Anemia Paroxysmal A-fib ([facility]) ([facility]) HTN (hypertension) ESRD on hemodialysis ([facility]) ([facility]) IgA nephropathy determined by biopsy of kidney Diverticulosis Nonrheumatic aortic valve stenosis Calcification of abdominal aorta ([facility]) Missed vaccination due to patient refusal Tobacco abuse Alcohol use disorder in remission Atrial flutter, unspecified type ([facility]) RSV (acute bronchiolitis due to respiratory syncytial virus) Aortic stenosis Upper GI bleed S/P AVR Acute hypoxic respiratory failure ([facility]) Acute encephalopathy Pneumoperitoneum Gastric ulceration Severe malnutrition ([facility]) ([facility]) Pleural effusion Peritonitis due to fungus ([facility]) History of abdominal surgery Leg DVT (deep venous thromboembolism), acute, left ([facility]) Ischemic ulcer of toe of left foot, limited to breakdown of skin ([facility]) Tracheostomy dependence ([facility]) Leukocytosis Decubitus ulcer of sacral region, unstageable ([facility]) Pneumonia of both lungs due to methicillin susceptible Staphylococcus aureus (MSSA) ([facility]) Sacral osteomyelitis (CMS/HCC) (HCC) Acute respiratory failure with hypoxia ([facility]) [J96.01] Tracheostomy care ([facility]) [Z43.0] Pulmonary embolism ([facility]) long term care pharmacist (current) use of antibiotics Complication of tracheostomy (CMS/HCC) ([facility]) BRBPR (bright red blood per rectum) Treatment: [...] 01/31/25 0400 -- -- -- -- Diminished Ecchymosis;Yoder;Mark Warm;Dry Flat;Gastrostomy tube Active 01/31/25 0801 Alert [...] - Before each treatment: Dialysis Machine No.: [id number] Machine Number: [id number] Dialyzer Lot No.: [id number] Tubing Lot Number: [id number] All Connections Secure: Yes Venous Parameters Set: Yes Arterial Parameters Set: Yes NS Bag: Yes Saline Line Double Clamped: Yes Dialyzer: Nipro Prime Volume (mL): 200 mL RO Machine Number: [id number] RO Machine Log Sheet Completed: Yes Machine Alarm Self Test: Completed, Passed (722) (01/31/25742) Air Foam Detector: Tested, Proper Function, pH Reading Extracorporeal Circuit Tested for Integrity: Yes Machine Conductivity: 13.7 Manual Conductivity: 13.7 Manual Ph: 7 Bleach Test (Neg): Yes Bath Temperature: 36 C (96.8 F) Conductivity Meter Serial #: [id number] Machine Functioning Alarm Free? Yes Dialysis Bath: K+ (Potassium): 2 Ca+ (Calcium): 2.5 Na+ (Sodium): 137 HCO3 (Bicarb): 35 Bicarbonate Concentrate Lot No.: [id number] Acid Concentrate Lot No.: [id number] Chlorine Testing - Before each treatment and every 4 hours: Time On: 0811 Time Off: 1111 Treatment Goal: 2L Weight Height: 177.8 cm (5' 10") (01/30/251001) Weight: 53.2 kg (117 lb 4.6 oz) [...] to Education: Verbalized Understanding Patient arrived from [facility], Dr. Borrero in to speak [...] Name: Jun Snyder Patient : 1965 Acct: [id number] Date of Admission: 01/19/2025 Room/Bed: 1C144/[facility] A Code Status: Full Code Allergies: Allergies Allergen Reactions Lisinopril Swelling and Angioedema Diagnosis: Patient Active Problem List Diagnosis Anemia Paroxysmal A-fib ([facility]) ([facility]) HTN (hypertension) ESRD on hemodialysis ([facility]) ([facility]) IgA nephropathy determined by biopsy of kidney Diverticulosis Nonrheumatic aortic valve stenosis Calcification of abdominal aorta ([facility]) Missed vaccination due to patient refusal Tobacco abuse Alcohol use disorder in remission Atrial flutter, unspecified type ([facility]) RSV (acute bronchiolitis due to respiratory syncytial virus) Aortic stenosis Upper GI bleed S/P AVR Acute hypoxic respiratory failure ([facility]) Acute encephalopathy Pneumoperitoneum Gastric ulceration Severe malnutrition ([facility]) ([facility]) Pleural effusion Peritonitis due to fungus ([facility]) History of abdominal surgery Leg DVT (deep venous thromboembolism), acute, left ([facility]) Ischemic ulcer of toe of left foot, limited to breakdown of skin ([facility]) Tracheostomy dependence ([facility]) Leukocytosis Decubitus ulcer of sacral region, unstageable ([facility]) Pneumonia of both lungs due to methicillin susceptible Staphylococcus aureus (MSSA) ([facility]) Sacral osteomyelitis ([facility]) ([facility]) Acute respiratory failure with hypoxia ([facility]) [J96.01] Tracheostomy care ([facility]) [Z43.0] Pulmonary embolism ([facility]) MCC (current) use of antibiotics Complication of tracheostomy ([facility]) ([facility]) BRBPR (bright red blood per rectum) Treatment: [...] 01/29/25 0800 -- -- -- -- Clear Yoder;Mark Warm;Dry Flat;Soft;Gastrostomy tube Active 01/29/25 0839 Alert (0) 3 Regular None (Room air) Clear [place] Warm;Dry;No swelling Soft Active 01/29/25 1210 Alert (0) 3 Regular None (Room air) Clear Yoder -- -- -- Labs Lab Results Component Value Date/Time WBC 9.4 01/29/2025336 HGB 8.6 (L) 01/29/2025336 HGB 9.4 11/11/2024 0230 HCT 27.3 (L) 01/29/2025336 PLT 271 01/29/2025336 NA 134 (L) 01/29/2025336 K 3.7 01/29/2025336 CL 94 (L) 01/29/2025 033 CO2 23 01/29/2025 033 BUN 21 01/29/2025336 CREATININE 4.17 (H) 01/29/2025336 CREATININE 9.99 (H) 10/27/2019 05 CALCIUM 9.8 01/29/2025336 PHOS 4.9 (H) 01/29/2025336 IV Drips and Rate/Dose sodium chloride, 20 mL/hr, Last Rate: 20 mL/hr (01/25/252003) Safety - Before each treatment: Dialysis Machine No.: [id number] RO Machine Number: [id number] Dialyzer Lot No.: [id number] Tubing Lot Number: [id number] All Connections Secure: Yes Venous Parameters Set: Yes Arterial Parameters Set: Yes NS Bag: Yes Saline Line Double Clamped: Yes Dialyzer: Nipro Prime Volume (mL): 200 mL RO Machine Number: [id number] RO Machine Log Sheet Completed: Yes Machine Alarm Self Test: Completed, Passed (01/29/25729) Air Foam Detector: Tested, Proper Function, pH Reading Extracorporeal Circuit Tested for Integrity: Yes Machine Conductivity: 13.8 Manual Conductivity: 13.8 Manual Ph: 7 Bleach Test (Neg): Yes Bath Temperature: 36 C (96.8 F) Conductivity Meter Serial #: [id number] Machine Functioning Alarm Free? Yes Dialysis Bath: K+ (Potassium): 3 Ca+ (Calcium): 2.5 Na+ (Sodium): 137 HCO3 (Bicarb): 35 Bicarbonate Concentrate Lot No.: [id number] Acid Concentrate Lot No.: [id number] Chlorine Testing - Before each treatment and [...] 210 mmHg 100 600 Yes Pt stable [id number]. Pt stable , sleeping 01/29/25 1018 400 [...] -- -- -- -- -- Tx completed [facility] 1999 Vital Signs Patient Vitals for the [...] Name: Jun Snyder Patient : 1965 Acct: [id number] Date of Admission: 01/19/2025 Room/Bed: T3-321/T3-321 A Code Status: Full Code Allergies: Allergies Allergen Reactions Lisinopril Swelling and Angioedema Diagnosis: Patient Active Problem List Diagnosis Anemia Paroxysmal A-fib (CMS/HCC) (HCC) HTN (hypertension) ESRD on hemodialysis ([facility]) ([facility]) IgA nephropathy determined by biopsy of kidney Diverticulosis Nonrheumatic aortic valve stenosis Calcification of abdominal aorta (HCC) Missed vaccination due to patient refusal Tobacco abuse Alcohol use disorder in remission Atrial flutter, unspecified type (HCC) RSV (acute bronchiolitis due to respiratory syncytial virus) Aortic stenosis Upper GI bleed S/P AVR Acute hypoxic respiratory failure ([facility]) Acute encephalopathy Pneumoperitoneum Gastric ulceration Severe malnutrition [...] susceptible Staphylococcus aureus (MSSA) (HCC) Sacral osteomyelitis ([facility]) ([facility]) Acute respiratory failure with hypoxia ([facility]) [J96.01] Tracheostomy care ([facility]) [Z43.0] Pulmonary embolism ([facility]) MCC (current) use of antibiotics Complication of tracheostomy ([facility]) ([facility]) BRBPR (bright red blood per rectum) Treatment: [...] 01/26/2025 0952 PLT 265 01/26/2025247 NA 136 01/26/2025247 K [...] - Before each treatment: Dialysis Machine No.: [id number] RO Machine Number: [id number] Dialyzer Lot No.: [id number] Tubing Lot Number: [id number] All Connections Secure: Yes Venous Parameters Set: Yes Arterial Parameters Set: Yes NS Bag: Yes Saline Line Double Clamped: Yes Dialyzer: Nipro Prime Volume (mL): 200 mL RO Machine Number: [id number] RO Machine Log Sheet Completed: Yes Machine Alarm Self Test: Completed, Passed (1226) (01/26/25 1226) Air Foam Detector: Tested, Proper Function, pH Reading Extracorporeal Circuit Tested for Integrity: Yes Machine Conductivity: 13.9 Manual Conductivity: 14 Manual Ph: 7.4 Bleach Test (Neg): Yes Bath Temperature: 36 C (96.8 F) Conductivity Meter Serial #: [id number] Machine Functioning Alarm Free? Yes Dialysis Bath: K+ (Potassium): 2 Ca+ (Calcium): 2.5 Na+ (Sodium): 137 HCO3 (Bicarb): 35 Bicarbonate Concentrate Lot No.: [id number] Acid Concentrate Lot No.: [id number] Chlorine Testing - Before each treatment and [...] -- -- -- -- tx completed, UF [id number] Vital Signs Patient Vitals for the past [...] Name: Jun Snyder Patient : 1965 Acct: [id number] Date of Admission: 01/19/2025 Room/Bed: T3321/T3321 A Code Status: Full Code Allergies: Allergies Allergen Reactions Lisinopril Swelling and Angioedema Diagnosis: Patient Active Problem List Diagnosis Anemia Paroxysmal A-fib ([facility]) ([facility]) HTN (hypertension) ESRD on hemodialysis ([facility]) ([facility]) IgA nephropathy determined by biopsy of kidney Diverticulosis Nonrheumatic aortic valve stenosis Calcification of abdominal aorta ([facility]) Missed vaccination due to patient refusal Tobacco abuse Alcohol use disorder in remission Atrial flutter, unspecified type ([facility]) RSV (acute bronchiolitis due to respiratory syncytial virus) Aortic stenosis Upper GI bleed S/P AVR Acute hypoxic respiratory failure ([facility]) Acute encephalopathy Pneumoperitoneum Gastric ulceration Severe malnutrition ([facility]/HCC) ([facility]) Pleural effusion Peritonitis due to fungus ([facility]) History of abdominal surgery Leg DVT (deep venous thromboembolism), acute, left ([facility]) Ischemic ulcer of toe of left foot, limited to breakdown of skin ([facility]) Tracheostomy dependence ([facility]) Leukocytosis Decubitus ulcer of sacral region, unstageable ([facility]) Pneumonia of both lungs due to methicillin susceptible Staphylococcus aureus (MSSA) ([facility]) Sacral osteomyelitis (CMS/HCC) ([facility]) Acute respiratory failure with hypoxia ([facility]) [J96.01] Tracheostomy care ([facility]) [Z43.0] Pulmonary embolism ([facility]) long term care pharmacist (current) use of antibiotics Complication of tracheostomy ([facility]) ([facility]) BRBPR (bright red blood per rectum) Treatment: [...] - Before each treatment: Dialysis Machine No.: [id number] RO Machine Number: [id number] Dialyzer Lot No.: [id number] Tubing Lot Number: [id number] All Connections Secure: Yes Venous Parameters Set: Yes Arterial Parameters Set: Yes NS Bag: Yes Saline Line Double Clamped: Yes Dialyzer: Nipro Prime Volume (mL): 200 mL RO Machine Number: [id number] RO Machine Log Sheet Completed: Yes Machine Alarm Self Test: Completed, Passed (test passed at 0923) (01/24/25 0925) Air Foam Detector: Tested, Proper Function, pH Reading Extracorporeal Circuit Tested for Integrity: Yes Machine Conductivity: 13.8 Manual Conductivity: 13.8 Manual Ph: 7.2 Bleach Test (Neg): Yes (water check negative at 0910) Bath Temperature: 36 C (96.8 F) Conductivity Meter Serial #: [id number] Machine Functioning Alarm Free? Yes Dialysis Bath: K+ (Potassium): 3 Ca+ (Calcium): 2.5 Na+ (Sodium): 137 HCO3 (Bicarb): 35 Bicarbonate Concentrate Lot No.: [id number] Acid Concentrate Lot No.: [id number] Chlorine Testing - Before each treatment and [...] Name: Jun Snyder Patient : 1965 Acct: [id number] Date of Admission: 01/19/2025 Room/Bed: T3-321/T3-321 A Code Status: Full Code Allergies: Allergies Allergen Reactions Lisinopril Swelling and Angioedema Diagnosis: Patient Active Problem List Diagnosis Anemia Paroxysmal A-fib (CMS/HCC) (HCC) HTN (hypertension) ESRD on hemodialysis (CMS/HCC) ([facility]) IgA nephropathy determined by biopsy of kidney [...] (CMS/HCC) (HCC) Acute respiratory failure with hypoxia ([facility]) [J96.01] Tracheostomy care ([facility]) [Z43.0] Pulmonary embolism ([facility]) long term care pharmacist (current) use of antibiotics Complication of tracheostomy (CMS/HCC) ([facility]) Treatment: Hemodialysis 1:1 Priority: Routine Location: ICU [...] PLT 330 01/22/2025 041 NA 132 (L) 01/22/2025 0419 K 4.4 01/22/2025 041 CL 94 (L) 01/22/2025 041 CO2 25 01/22/2025 041 BUN 53 (H) 01/22/2025 041 CREATININE 4.18 (H) 01/22/2025418 CREATININE 9.99 (H) 10/27/2019 0545 CALCIUM 9.8 01/22/20259 PHOS 6.8 (H) 01/22/2025418 IV Drips and Rate/Dose Safety - Before each treatment: Dialysis Machine No.: [id number] RO Machine Number: [id number] Dialyzer Lot No.: [id number] Tubing Lot Number: [id number] All Connections Secure: Yes Venous Parameters Set: Yes Arterial Parameters Set: Yes NS Bag: Yes Saline Line Double Clamped: Yes Dialyzer: Nipro Prime Volume (mL): 250 mL RO Machine Number: [id number] RO Machine Log Sheet Completed: Yes Machine Alarm Self Test: Completed, Passed (01/22/25850) Air Foam Detector: Tested, Proper Function, pH Reading Extracorporeal Circuit Tested for Integrity: Yes Machine Conductivity: (13.8) Manual Conductivity: 14 Manual Ph: 7.2 Bleach Test (Neg): Yes Bath Temperature: 36 C (96.8 F) Conductivity Meter Serial #: [id number] Machine Functioning Alarm Free? Yes Dialysis Bath: K+ (Potassium): 2 Ca+ (Calcium): 2.5 Na+ (Sodium): 137 HCO3 (Bicarb): 35 Bicarbonate Concentrate Lot No.: [id number] Acid Concentrate Lot No.: [id number] Chlorine Testing - Before each treatment and [...] Name: Jun Snyder Patient : 1965 Acct: [id number] Date of Admission: 01/19/2025 Room/Bed: [facility] A Code Status: Full Code Allergies: Allergies Allergen Reactions Lisinopril Swelling and Angioedema Diagnosis: Patient Active Problem List Diagnosis Anemia Paroxysmal A-fib ([facility]/HCC) ([facility]) HTN (hypertension) ESRD on hemodialysis ([facility]) ([facility]) IgA nephropathy determined by biopsy of kidney Diverticulosis Nonrheumatic aortic valve stenosis Calcification of abdominal aorta ([facility]) Missed vaccination due to patient refusal Tobacco abuse Alcohol use disorder in remission Atrial flutter, unspecified type ([facility]) RSV (acute bronchiolitis due to respiratory syncytial virus) Aortic stenosis Upper GI bleed S/P AVR Acute hypoxic respiratory failure ([facility]) Acute encephalopathy Pneumoperitoneum Gastric ulceration Severe malnutrition (CMS/HCC) ([facility]) Pleural effusion Peritonitis due to fungus ([facility]) History of abdominal surgery Leg DVT (deep venous thromboembolism), acute, left ([facility]) Ischemic ulcer of toe of left foot, 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) Tracheostomy dependence (HCC) Leukocytosis Decubitus ulcer of sacral region, unstageable (HCC) Pneumonia of both lungs due to methicillin susceptible Staphylococcus aureus (MSSA) ([facility]) Sacral osteomyelitis (CMS/HCC) ([facility]) Acute respiratory failure with hypoxia ([facility]) [J96.01] Tracheostomy care ([facility]) [Z43.0] Pulmonary embolism ([facility]) MCC (current) use of antibiotics Complication of tracheostomy ([facility]) ([facility]) Treatment: Hemodialysis 1:1 Priority: Routine Location: Bedside [...] 10.5 01/20/2025 05 HGB 8.2 (L) 01/20/2025 08 HGB 9.4 11/11/2024 0230 HCT 25.8 (L) 01/20/2025 0801 PLT 279 01/20/2025 0514 NA 135 (L) 01/20/2025513 K 4.8 01/20/2025513 CL 98 01/20/2025513 CO2 22 01/20/2025513 BUN 91 (H) 01/20/2025513 CREATININE 4.31 (H) 01/20/2025513 CREATININE 9.99 (H) 10/27/2019 05 CALCIUM 9.2 01/20/2025513 PHOS 6.1 (H) 01/20/2025513 IV Drips and Rate/Dose pantoprazole (ProtoNix) 80 mg in sodium chloride 0.9 % 100 mL (0.8 mg/mL) infusion, 8 mg/hr Safety - Before each treatment: Dialysis Machine No.: [id number] RO Machine Number: [id number] Dialyzer Lot No.: [id number] Tubing Lot Number: [id number] All Connections Secure: Yes Venous Parameters Set: Yes Arterial Parameters Set: Yes NS Bag: Yes Saline Line Double Clamped: Yes Dialyzer: Nipro Prime Volume (mL): 200 mL RO Machine Number: [id number] RO Machine Log Sheet Completed: Yes Machine Alarm Self Test: Completed, Passed (1000) (01/20/25 1000) Air Foam Detector: Tested, Proper Function, pH Reading Extracorporeal Circuit Tested for Integrity: Yes Machine Conductivity: 13.6 Manual Conductivity: 13.8 Manual Ph: 7.2 Bleach Test (Neg): Yes Bath Temperature: 36 C (96.8 F) Conductivity Meter Serial #: [id number] Machine Functioning Alarm Free? Yes Dialysis Bath: K+ (Potassium): 2 Ca+ (Calcium): 2.5 Na+ (Sodium): 137 HCO3 (Bicarb): 35 Bicarbonate Concentrate Lot No.: [id number] Acid Concentrate Lot No.: [id number] Chlorine Testing - Before each treatment and [...] -- 115 -- -- 01/20/25 1115 (!) 8960 -- -- 91 -- -- 01/20/25 1100 [...] lab value (Hgb 6.6) Provider Name: LEONA lyles ATT Provider Role: Attending physician Method of [...] Education: Verbalized Understanding documented in this encounter [facility] 02-01-2025 Miscellaneous Notes Formattin g of this note might be different from the original. 7000 created in [facility] per TCC request. Facility notified via Careport. Authorization approved for the [facility] through 02/02/25, discharge orders placed, ROSENDO completed. Transportation placed and confirmed for today 02/01/25 at 330pm to the [facility], physician/patient/sales secretary/RN aware. [employer] tasked to send 7000 and DC summary. Hep B panels, 3 days of HD flowsheets, MAR and OPAT sent to the [facility] via [facility]. Call placed to the [facility] to confirm able to still take patient [...] Nutrition Support Outcome: Progressing Updates placed to [facility] - [facility] via [facility] per [facility] request. Await [...] Nutrition Support Outcome: Progressing Message sent to Rrt to start [facility] for [facility]. Problem: Pain - Adult Goal: Verbalizes/displays [...] order to start auth to return to [facility] per previous TCC note of plan. [...] Improved Outcome: Progressing Updates placed to [facility] Return - [facility] via Careport per TCC request. Await review and response regarding ability to accept. TCC notified. Electronically signed by [facility] Sabino Rodrigues Tasked [facility] to send updates to [facility], per their request. Warfarin bridging per MD notes, patient will need NEW auth for return to [facility]. Problem: Pain - Adult Goal: Verbalizes/displays adequate [...] Outcome: [facility]ing [facility]. Care Management Progress Note PCU transfer pending. Received one unit PRBC this AM for low Hgb. HD today. Heparin drip ongoing. IVAB (plan for 6 week course). Wound vac to sacral wound. Room Air. Dysphagia diet; pureed. DC plan - [facility]. Facility updated via careport. [facility] P[employer] asked to send dialysis note per their [...] Mobility/Exercise Safety Screen: Activity: Bed mobility -[facility] Score: Bed activity LDAs Peripheral IV 01/19/25 Right Forearm (Active) Number of days: 4 Peripheral IV 01/23/25 Anterior;Distal;Right Forearm (Active) Number of days: 0 Enterostomy Gastric 20 Fr. LUQ (Active) Number of days: 70 - Central Line indicated: N/A - Christian indicated: N/A OPAT placed to [facility] via Careport per TCC request. 01/25/25 1047 Rapid Rounds Attendance Caustic Room Operator Planned Discharge Disposition SNF Today we still await Administering IV medications;Net Developer Software Engineer C recommendations (comment);Clinical stability;Symptomatic control;Post-discharge arrangement completion (comment) Patient remains on MICU. S/P colonoscopy 01/24-negative for active bleeding. Heparin drip resumed post procedure. Wound vac to sacral wound; IVAB till 02/13; OPAT under chart review > media. Plan for MBSS. Room Air. DC plan - [facility] when medically appropriate. CM will continue to [...] Interventions Goal: Nutrition Support Outcome: [facility] Name: Jun Snyder Procedure Date: 01/24/2025 12:37 PM Gender: Male Date of : 1965 Age: 59 Admit Type: Inpatient Note Status: Finalized Endoscopist: Chadd Davis MD, [id number] Procedure: Colonoscopy Indications: Evaluation of unexplained GI [...] by the physician, the nurse and the costume cutter in the pre-procedure area in the procedure [...] anticoagulant use Procedure Code(s): --- Professional --- 54716, Colonoscopy, flexible; diagnostic, including collection of specimen(s) by brushing or washing, when performed (separate procedure) --- Technical --- 48724, Colonoscopy, flexible; diagnostic, including collection of specimen(s) by brushing or washing, when performed (separate procedure) Diagnosis Code(s): --- Professional --- K64.0, First degree hemorrhoids K92.1, Melena (includes Hematochezia) Z79.01, MCC (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 anticoagulants K57.30, Diverticulosis of large intestine without perforation or abscess without bleeding --- Technical --- K64.0, First degree hemorrhoids K92.1, Melena (includes Hematochezia) Z79.01, long term care pharmacist (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 anticoagulants K57.30, Diverticulosis of large intestine without perforation or abscess without bleeding CPT copyright 2021 [employer]. All rights reserved. The codes documented in this report are preliminary and upon concrete paving machine operator review may be revised to meet current [...] baseline comfort level Outcome: Progressing Flowsheets (Taken 01/24/2025706) Verbalizes/displays adequate comfort level or baseline comfort [...] Diagnosis: Principal Problem: Complication of tracheostomy (CMS/HCC) ([facility]) Active Problems: Severe malnutrition (CMS/HCC) ([facility]) Chief Complaint: Jun Snyder is a 59 y.o. male with chief complaint of: trach complications, OM from decub Reason Palliative Following:Goals of Care Plan:Ongoing Goals of Care Discussions and Support Code Status: Full Code Medications: Palliative Care Not Managing Any Medications Nursing: Intermediate Care and Skin Integrity Social Work: Palliative [...] care team, reviewed Health Care Power of Engineering Executive (HCPOA) with patient. Patient agreeable to complete [...] secondary agent. DC plan - return to [facility]. CM will continue to follow Length of Stay (Days): 1 GMLOS: 4.5 Images from the original note were not included. [facility] Palliative Care Transitions of Care [...] to have bile peritonitis" 11/28/24: transferred to [facility] He ended up developing sacral ulcer and osteomyelitis at [facility]. He then ended up dislodging his tracheostomy, and was brought to [facility] ED for further care. Palliative care consulted for goals of care. Goals of care - Patient has capacity to make medical decisions - legal surrogate decision maker VIRGINIA Nelson, 1st alternate is significant other Toma - goals of care include: 1) to continue current management, continue with aggressive medical therapy, procedures, antibiotics at this time - planning to eventually discharge to [facility] - will forward chart to Palliative [...] AV replacement Supratherapeutic INR - [facility] 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 valve in 09/2024 - coumadin held due to bleeding and supratherapeutic levels Chronic respiratory failure s/p tracheostomy Tracheostomy dislodgement - has been saturating well without trach on RA so has not been replaced FOLLOW UP TESTING, PENDING RESULTS OR REFERRALS AT TRANSITIONAL CARE VISIT: No DISPOSITION: Skilled Rehab Facility FACILITY/HOME CARE AGENCY NAME: [facility] Follow up with Palliative Care on patient to call. Reason for Outpatient/Home/ECF Palliative Care follow-up: Continue goals of care discussion SIGNED: Tex Cotto MD 01/25/2025, 11:45 AM Problem: Pain - Adult Goal: Verbalizes/displays adequate comfort level or baseline comfort level Outcome: Progressing Flowsheets (Taken 01/22/2025 0569) Verbalizes/displays adequate comfort level or baseline comfort [...] Safety: The patient was placed on a excel analyst and vital signs, pulse oximetry, and level [...] by this procedure note. [facility] Patient Name: Jun Snyder Procedure Date: 01/21/2025 9:59 AM Gender: Male Date of : 1965 Age: 59 Admit Type: Inpatient Note Status: Finalized Endoscopist: ELDON Alba MD, [id number] Procedure: Upper GI endoscopy Indications: Acute post [...] by the physician, the nurse and the costume cutter in the pre-procedure area in the procedure [...] loss: None. Procedure Code(s): --- Professional --- 06022, Esophagogastroduodenoscopy, flexible, transoral; diagnostic, including collection of specimen(s) by brushing or washing, when performed (separate procedure) --- Technical --- 93753, Esophagogastroduodenoscopy, flexible, transoral; diagnostic, including collection of [...] D62, Acute posthemorrhagic anemia CPT copyright 2021 [employer]. All rights reserved. The codes documented in this report are preliminary and upon concrete paving machine operator review may be revised to meet current [...] Plan Patient was transferred over from [facility] after self-dislodged tracheostomy this morning around 0600. [...] his airway and need for redo tracheostomy. ANTHNOY Bey MD General Surgery PGY-2 Pager [phone] Problem: Pain - Adult Goal: Verbalizes/displays adequate comfort level or baseline comfort level Outcome: Progressing Flowsheets (Taken 01/19/2025 08) Verbalizes/displays adequate comfort level or baseline comfort level: Encourage patient to monitor pain and request assistance Assess pain using appropriate pain scale Administer analgesics based on type and severity of pain and evaluate response Problem: Safety - Adult Goal: Free from fall injury Outcome: Progressing Flowsheets (Taken 01/19/2025 08) Free from fall injury: Instruct family/caregiver [...] and treatment plans Return referral placed to SNF - [facility] via [facility] per TCC request. Await review and response regarding ability to accept. TCC notified. 01/19/25 1300 Rapid Rounds Attendance Caustic Room Operator Planned Discharge Disposition SNF Today we still await Clinical stability;Net Developer Software Engineer C recommendations (comment);Symptomatic control;Post-discharge arrangement completion (comment) Patient admitted due to trach dislodgement. Patient was discharged from LT[facility] to the [facility]; there only a matter of hours per [...] He would like patient to return to [facility] SNF is able at DC. Does not want patient to return to [facility]. LAPEL PADDER asked to place referral to [facility]. CM will continue to follow for DC [...] improved Outcome: Progressing documented in this encounter [facility] 02-01-2025 History of Presen t illness Narrative Images from the original note were not included. [facility] - Infectious Diseases Advanced Practice [...] of use of antimicrobials. Mikala MORAN PA-C [facility] Infectious Disease Nephrology Progress Note Following for [...] Speech-Language Pathology SPEECH LANGUAGE PATHOLOGY [facility] Dysphagia Treatment Note Patient Name: Jun Snyder [...] strategies. Plan & Recommendations Plan: Continue acute STAVE INSPECTOR therapy per initial plan of care and [...] Expected End: 02/02/25 Resolved: 01/25/25 Therapy Time STAVE INSPECTOR Individual Minutes Time In: 0817 Time Out: 0830 Minutes: 13 KARLA Salazar Hospitalist Progress Note Subjective: Admit Date: 01/19/2025 PCP: Leilani Troncoso Room#: 1C-144/-144 A Chief Complaint Patient presents with Tracheostomy Tube Change Brief Hospital course: Jun Snyder is a 59 y.o. male who who presented to [facility] 01/19 after inadvertent removal of his tracheostomy. He was transferred to [facility] ICU for surgical evaluation. On arrival [...] HD successfully. hemodynamically stable. Transferred out to [facility] 01/27 ID following for sacral osteomyelitis, s/p wound debridement to bone on 01/02, cultures grew E faecalis and Clostridium, continue with renally dosed ampicillin sulbactam for 6 weeks course through 02/13/2025, needs tunneled line, status post IR CVC tunneled line on 01/29 Nephrology following, on dialysis STAVE INSPECTOR following PT/OT recommends SNF Patient will be [...] History: Diagnosis Date Acute renal failure (ARF) ([facility]) 10/19/2019 Anemia 12/30/2021 Calcification of abdominal aorta ([facility]) 10/08/202309/[address] abd Diverticulosis 10/08/2023 ESRD on hemodialysis ([facility]) ([facility]) 10/26/2019 Hemodialysis patient ([facility]) ([facility]) HTN (hypertension) 12/01/2022 Hypertension IgA nephropathy IgA nephropathy determined by biopsy of kidney 10/26/2019 Missed vaccination due to patient refusal 10/08/2023 Has a number of non-scientific based beliefs which interfere with his understanding and acceptance of the medical benefit of vaccination. Nonrheumatic aortic valve stenosis 10/08/2023 Paroxysmal A-fib ([facility]) ([facility]) 08/18/2023 Tobacco abuse 10/08/2023 Adult diet Dysphagia [...] by ID -S/p tunneled central line placement -STAVE INSPECTOR follow, dysphagia diet -PT OT DC recommend [...] MD Division of Hospital Medicine Inpatient Medical Services/[facility] Anticoagulation Management Service ([facility]) Inpatient Warfarin Consult HPI: Jun Snyder is a 59 y.o. male admitted on 01/19/2025 for Complication of tracheostomy ([facility]) ([facility]) [J95.00] Past Medical History: Diagnosis Date Acute renal failure (ARF) ([facility]) 10/19/2019 Anemia 12/30/2021 Calcification of abdominal aorta ([facility]) 10/08/202309/[address] abd Diverticulosis 10/08/2023 ESRD on hemodialysis ([facility]) ([facility]) 10/26/2019 Hemodialysis patient ([facility]) ([facility]) HTN (hypertension) 12/01/2022 Hypertension IgA nephropathy IgA nephropathy determined by biopsy of kidney 10/26/2019 Missed vaccination due to patient refusal 10/08/2023 Has a number of non-scientific based beliefs which interfere with his understanding and acceptance of the medical benefit of vaccination. Nonrheumatic aortic valve stenosis 10/08/2023 Paroxysmal A-fib ([facility]) ([facility]) 08/18/2023 Tobacco abuse 10/08/2023 Patient is on [...] dose accordingly 3. Will facilitate f/u at [facility] upon discharge Tiffanie Dial RPh [facility] is available daily [phone] via [employer]. If no response on [employer] Chat then please page [phone]. Images from the original note were not included. OCCUPATIONAL THERAPY [facility] Re-Evaluation Name/MRN: Jair Snyder ([id number]) Evaluation Date: 01/31/2025 Date of : 1965 Admission Date: 01/19/2025 2:13 AM Age: 59 y.o. Room[facility]Bed: [facility] [facility] A Discharge Recommendation: Intermediate Facility Other: DME TBD Assessment IMPRESSION: OT [...] History: Diagnosis Date Acute renal failure (ARF) ([facility]) 10/19/2019 Anemia 12/30/2021 Calcification of abdominal aorta ([facility]) 10/08/202309/[address] abd Diverticulosis 10/08/2023 ESRD on hemodialysis ([facility]) ([facility]) 10/26/2019 Hemodialysis patient ([facility]) ([facility]) HTN (hypertension) 12/01/2022 Hypertension IgA nephropathy IgA nephropathy determined by biopsy of kidney 10/26/2019 Missed vaccination due to patient refusal 10/08/2023 Has a number of non-scientific based beliefs which interfere with his understanding and acceptance of the medical benefit of vaccination. Nonrheumatic aortic valve stenosis 10/08/2023 Paroxysmal A-fib ([facility]) ([facility]) 08/18/2023 Tobacco abuse 10/08/2023 Past Surgical History: Past Surgical History: Procedure Laterality Date APPENDECTOMY CARDIAC CATHETERIZATION N/A 10/09/2024 Performed by Bob Watson MD at [facility] Cardiac Cath/EP Lab CARDIAC CATHETERIZATION Bilateral 11/01/2024 Performed by Bob Watson MD at [facility] Cardiac Cath/EP Lab CARDIAC CATHETERIZATION N/A 11/01/2024 Performed by Bob Watsno MD at [facility] Cardiac Cath/EP Lab COLONOSCOPY N/A 01/24/2025 Performed by Chadd Davis MD at [facility] ENDOSCOPY FISTULAGRAM (HISTORICAL) Left 09/15/2021 LEFT UPPER ARM HX AV FISTULA CREATION IR EMBOLIZATION 10/14/2024 IR EMBOLIZATION 10/14/2024 [facility] SPECIAL PROCEDURES IR FISTULAGRAM 08/07/2022 IR FISTULAGRAM 08/07/2022 [facility] IR IMAGING TONSILLECTOMY (HISTORICAL) Admission Diagnosis: Patient Active Problem List Diagnosis Date Noted Severe malnutrition ([facility]) ([facility]) 01/19/2025 Complication of tracheostomy ([facility]) ([facility]) 01/19/2025 [facility] (current) use of antibiotics 01/12/2025 Acute respiratory failure with hypoxia ([facility]) [J96.01] 01/08/2025 Tracheostomy care ([facility]) [Z43.0] 01/08/2025 Pulmonary embolism ([facility]) 01/08/2025 Sacral osteomyelitis ([facility]) ([facility]) 01/03/2025 Pneumonia of both lungs due to methicillin susceptible Staphylococcus aureus (MSSA) ([facility]) 01/01/2025 Leukocytosis 12/30/2024 Decubitus ulcer of sacral region, unstageable ([facility]) 12/30/2024 Peritonitis due to fungus ([facility]) 11/30/2024 History of abdominal surgery 11/30/2024 Leg DVT (deep venous thromboembolism), acute, left ([facility]) 11/30/2024 Ischemic ulcer of toe of left foot, limited to breakdown of skin ([facility]) 11/30/2024 Tracheostomy dependence ([facility]) 11/30/2024 Pleural effusion 11/28/2024 Gastric ulceration 2024 Atrial flutter, unspecified type ([facility]) 10/03/2024 RSV (acute bronchiolitis due to respiratory syncytial virus) 10/03/2024 Diverticulosis 10/08/2023 Nonrheumatic aortic valve stenosis 10/08/2023 Calcification of abdominal aorta ([facility]) 10/08/2023 Missed vaccination due to patient refusal 10/08/2023 Tobacco abuse 10/08/2023 Alcohol use disorder in remission 10/08/2023 Paroxysmal A-fib ([facility]) ([facility]) 08/18/2023 HTN (hypertension) 12/01/2022 ESRD on hemodialysis ([facility]) ([facility]) 10/26/2019 IgA nephropathy determined by biopsy of kidney 10/26/2019 BRBPR (bright red blood per rectum) 01/19/2025 Aortic stenosis 10/03/2024 Upper GI bleed 10/03/2024 S/P AVR 10/03/2024 Acute hypoxic respiratory failure ([facility]) 10/03/2024 Acute encephalopathy 10/03/2024 Pneumoperitoneum 10/03/2024 Anemia [...] of Care supervision is transferred to a [facility] Therapy Services Occupational Therapist. Goals and/or treatment plan was established in collaboration with patient/family/other representatives. Images from the original note were not included. Speech-Language Pathology SPEECH LANGUAGE PATHOLOGY [facility] Dysphagia Treatment Note Patient Name: Jun Snyder [...] diet and for oropharyngeal strengthening. Continue acute STAVE INSPECTOR therapy per initial plan of care and [...] Expected End: 02/02/25 Resolved: 01/25/25 Therapy Time STAVE INSPECTOR Individual Minutes Time In: 1454 Time Out: 1515 Minutes: 21 FRANKLIN Carmona Images from the original note were not included. OCCUPATIONAL THERAPY [facility] Name/MRN: Jair Snyder ([id number]) Date: 01/31/2025 Attempted OT re-eval once pt returned from dialysis, pt very fatigued. Initially responsive to OT then stops conversing and unable to remain roused. Will follow and attempt as able. RONNY Ramirez/Tameka Images from the original note were not included. [facility] - Infectious Diseases Advanced Practice [...] of use of antimicrobials. Mikala MORAN PA-C [facility] Infectious Disease Images from the original note were not included. OCCUPATIONAL THERAPY [facility] Name/MRN: Jair Snyder ([id number]) Date: 01/31/2025 Attempted OT re-eval this AM, [...] PLT 271 276 -- 278 Recent Labs 01/29/2533601/30/25 0047 01/31/25 0010 NA [...] any questions or concerns Bree Molina APRN ALCOHOL STILL OPERATOR A-G ALTERATION INSPECTOR [facility] [phone] Pt seen and examined independently by me. I reviewed with DENIA-SAMIA the medical history and the findings on physical examination. I discussed the patient s diagnosis and concur with the treatment plan as documented in his note. Please call [phone] or message me through [employer] with any questions or concerns. [facility] Anticoagulation Management Service ([facility]) Inpatient Warfarin Consult HPI: Jun Snyder is a 59 y.o. male admitted on 01/19/2025 for Complication of tracheostomy ([facility]) ([facility]) [J95.00] Past Medical History: Diagnosis Date Acute renal failure (ARF) ([facility]) 10/19/2019 Anemia 12/30/2021 Calcification of abdominal aorta ([facility]) 10/08/202309/[address] abd Diverticulosis 10/08/2023 ESRD on hemodialysis ([facility]) ([facility]) 10/26/2019 Hemodialysis patient ([facility]) ([facility]) HTN (hypertension) 12/01/2022 Hypertension IgA nephropathy IgA nephropathy determined by biopsy of kidney 10/26/2019 Missed vaccination due to patient refusal 10/08/2023 Has a number of non-scientific based beliefs which interfere with his understanding and acceptance of the medical benefit of vaccination. Nonrheumatic aortic valve stenosis 10/08/2023 Paroxysmal A-fib ([facility]) ([facility]) 08/18/2023 Tobacco abuse 10/08/2023 Patient is on [...] 2.2* Date INR Dose 01/31 2.2 0.5mg 6 2.5 HOLD 01/29 [...] dose accordingly 3. Will facilitate f/u at [facility] upon discharge Tiffanie Dial RPh [facility] is available daily [phone] via [employer] Chat. If no response on [employer] Chat then please page [phone]. Hospitalist Progress Note Subjective: Admit Date: 01/19/2025 PCP: Leilani Troncoso Room#: 1C-144/1C-144 A Chief Complaint Patient presents with Tracheostomy Tube Change Brief Hospital course: Jun Snyder is a 59 y.o. male who who presented to [facility] 01/19 after inadvertent removal of his tracheostomy. He was transferred to [facility] ICU for surgical evaluation. On arrival [...] HD successfully. hemodynamically stable. Transferred out to [facility] 01/27 ID following for sacral osteomyelitis, s/p wound debridement to bone on 01/02, cultures grew E faecalis and Clostridium, continue with renally dosed ampicillin sulbactam for 6 weeks course through 02/13/2025, needs tunneled line, status post IR CVC tunneled line on 01/29 Nephrology following, on dialysis STAVE INSPECTOR following PT recommends SNF Interval History: 01/31/2025-No overnight issues. Patient is seen and examined Patient is resting in his bed Dialysis today Denies any new acute complaints Labs reviewed, ESRD picture, hemoglobin 8.8, stable Case and plan discussed with patient and bedside nurse. All questions answered. Past Medical History: Past Medical History: Diagnosis Date Acute renal failure (ARF) ([facility]) 10/19/2019 Anemia 12/30/2021 Calcification of abdominal aorta ([facility]) 10/08/202309/[address] abd Diverticulosis 10/08/2023 ESRD on hemodialysis ([facility]) ([facility]) 10/26/2019 Hemodialysis patient ([facility]) ([facility]) HTN (hypertension) 12/01/2022 Hypertension IgA nephropathy IgA nephropathy determined by biopsy of kidney 10/26/2019 Missed vaccination due to patient refusal 10/08/2023 Has a number of non-scientific based beliefs which interfere with his understanding and acceptance of the medical benefit of vaccination. Nonrheumatic aortic valve stenosis 10/08/2023 Paroxysmal A-fib ([facility]) ([facility]) 08/18/2023 Tobacco abuse 10/08/2023 Adult diet Dysphagia [...] 276 -- 278 BMP: Recent Labs 01/29/25 03301/30/25 0047 01/31/25 0010 NA 134* 135* 138 K 3.7 3.7 4.3 CL 94* 99 99 CO2 23 23 27 BUN 21 10 15 CREATININE 4.17* 2.56* 3.64* GLUCOSE 80 88 87 CALCIUM 9.8 9.6 10.0 ANIONGAP 17* 13 12 LIVER PROFILE: Recent Labs 01/31/25 0010 AST 31 ALT 11 BILITOT 0.8 ALKPHOS 218* PROT 7.3 PT/INR: Recent Labs 01/29/2533601/30/254601/31/25 0010 PROTIME 24.0* 24.9* 22.4* INR 2.4* [...] by ID -S/p tunneled central line placement -STAVE INSPECTOR follow, dysphagia diet -PT OT DC planning [...] MD Division of Hospital Medicine Inpatient Medical Services/[facility] Anticoagulation Management Service ([facility]) Inpatient Warfarin Consult HPI: Jun Snyder is a 59 y.o. male admitted on 01/19/2025 for Complication of tracheostomy ([facility]) ([facility]) [J95.00] Past Medical History: Diagnosis Date Acute renal failure (ARF) ([facility]) 10/19/2019 Anemia 12/30/2021 Calcification of abdominal aorta ([facility]) 10/08/202309/[address] abd Diverticulosis 10/08/2023 ESRD on hemodialysis ([facility]) ([facility]) 10/26/2019 Hemodialysis patient ([facility]) ([facility]) HTN (hypertension) 12/01/2022 Hypertension IgA nephropathy IgA nephropathy determined by biopsy of kidney 10/26/2019 Missed vaccination due to patient refusal 10/08/2023 Has a number of non-scientific based beliefs which interfere with his understanding and acceptance of the medical benefit of vaccination. Nonrheumatic aortic valve stenosis 10/08/2023 Paroxysmal A-fib ([facility]) ([facility]) 08/18/2023 Tobacco abuse 10/08/2023 Patient is on [...] will continue to hold warfarin. Please notify [facility] when able to resume warfarin. 2. Monitor for s/s of bleeding and drug interactions. Will adjust dose accordingly 3. Will facilitate f/u at [facility] upon discharge Fatuma Odonnell RPh [facility] is available daily [phone] via [employer]. If no response on [employer] Chat then please page [phone]. Images from the original note were not included. OCCUPATIONAL THERAPY [facility] Name/MRN: Jair Snyder ([id number]) Date: 01/30/2025 Attempted OT services however, Pt [...] candidate for diet upgrade. Christina Limon MS, CCC/STAVE INSPECTOR Nutrition Assessment Type and Reason for Visit: [...] who remains admitted after presenting to [facility] on 01/19 after inadvertent removal of his tracheostomy. He was transferred to [facility] ICU for surgical evaluation, however pt was maintaining appropriate O2 saturations on room air and the decision was made to leave the tracheostomy out. Pt transferred to [facility] later that day (01/19). Course c/b [...] MWF schedule with Nephrology following. Transferred to [facility] 01/27. ID continues following for sacral osteomyelitis and recs IV Unasyn x 6 weeks--> stop date 02/13. Course c/b anxiousness and paranoia, often refusing care and wound dressing changes. In terms of nutrition, pt was only receiving nutrition via PEG COPYWRITING INTERN. He was NPO 01/19, Nepro @ 50mls/hr initiated 01/20 which ran until pt was made NPO/CLD for colonoscopy prep 01/23. Remained NPO 01/24, underwent MBSS 01/25 with recs for pureed/thin which remains his current diet with STAVE INSPECTOR following and recommending the same. PO intake [...] bedscale, 10/31: 200#, 11/28: 161#, 01/18: 142#) [place] Body Weight (lbs) (Calculated): 166 lbs [place] Body Weight (Kg) (Calculated): 75 kg % [place] Body Weight (Calculated): 70.5 % BMI (kg/m2) [...] soon to determine Marilu Pollock RD Contact: *[phone] Images from the original note were not included. PHYSICAL THERAPY [facility] Treatment Note Name/MRN: Jair Snyder ([id number]) Date of : 1965 Age: 59 y.o. Room/Bed: 1C-144/1C144 A Discharge Recommendation: Intermediate Facility Other: tbd Assessment Pt requires mod [...] Timed Code Treatment Minutes: (2FA) Jocelin Ramirez COPYWRITING INTERN Cosigned by Betty Grady PT at 01/30/2025 1:28 PM EDT Patient receiving other care, will attempt smoking cessation counseling at a later date. Images from the original note were not included. [facility] - Infectious Diseases Advanced Practice [...] be of moderate complexity. Mikala MORAN PA-C [facility] Infectious Disease Hospitalist Progress Note Subjective: Admit Date: 01/19/2025 PCP: Leilani Troncoso Room#: 1C-144/1C-144 A Chief Complaint Patient presents with Tracheostomy Tube Change Brief Hospital course: Jun Snyder is a 59 y.o. male who who presented to [facility] 01/19 after inadvertent removal of his tracheostomy. He was transferred to [facility] ICU for surgical evaluation. On arrival [...] HD successfully. hemodynamically stable. Transferred out to [facility] 01/27 ID following for sacral osteomyelitis, s/p wound debridement to bone on 01/02, cultures grew E faecalis and Clostridium, continue with renally dosed ampicillin sulbactam for 6 weeks course through 02/13/2025, needs tunneled line, status post IR CVC tunneled line on 01/29 Nephrology following, on dialysis STAVE INSPECTOR following PT recommends SNF Interval History: 01/30/2025-No [...] History: Diagnosis Date Acute renal failure (ARF) ([facility]) 10/19/2019 Anemia 12/30/2021 Calcification of abdominal aorta ([facility]) 10/08/202309/[address] abd Diverticulosis 10/08/2023 ESRD on hemodialysis ([facility] ([facility]) 10/26/2019 Hemodialysis patient ([facility]) ([facility]) HTN (hypertension) 12/01/2022 Hypertension IgA nephropathy IgA [...] ml LABS: CBC: Recent Labs 01/28/25 0516 01/29/2533601/30/25 0047 WBC 9.8 9.4 8.8 RBC 3.01* 3.06* 3.15* HGB 8.5* 8.6* 8.7* HCT 26.3* 27.3* 28.1* MCV 87.4 89.2 89.2 RDW 19.0* 19.0* 18.9* PLT 240 271 276 BMP: Recent Labs 01/28/25 0632 01/29/257 01/30/25 004 NA 137 134* 135* K [...] component: LABALBU PT/INR: Recent Labs 01/28/25 0516 01/29/2533601/30/25 0047 PROTIME 21.9* 24.0* 24.9* INR 2.2* [...] by ID -S/p tunneled central line placement -STAVE INSPECTOR follow, dysphagia diet -PT OT DC planning [...] MD Division of Hospital Medicine Inpatient Medical Services/[facility] Nephrology Progress Note Mr. Jun Snyder is [...] status and labs. Please message me through [employer] chat with any questions or concerns. Wellington Nicole MD 01/30/2025 9:08 AM [facility] [address] [place] [address], [address] [place] [address] Office: [phone] Images from the original note were not included. Speech-Language Pathology SPEECH LANGUAGE PATHOLOGY [facility] Dysphagia Treatment Note Patient Name: Jun Snyder [...] Expected End: 02/02/25 Resolved: 01/25/25 Therapy Time STAVE INSPECTOR Individual Minutes Time In: 1438 Time Out: 1456 Minutes: 18 FRANKLIN Bailon Images from the original note were not included. [facility] - Infectious Diseases Attending Progress [...] 53.1 kg (117 lb 1 oz) 01/29/25 010 132/63 36.4 C (97.5 F) Temporal -- [...] be of low complexity. Radha Yee MD [facility] Nephrology Progress Note Mr. Jun Snyder is [...] MD 01/29/2025 10:13 AM [facility] [address] [place] [address], [address] [place] [address] Office: [phone] Images from the original note were not included. Hospitalist Progress Note 01/29/2025 Subjective: Admit Date: 01/19/2025 PCP: Leilani Troncoso Room#: 1C-144/1C-144 A Brief Hospital Summary: Jun Snyder is a 59 y.o. male who who presented to [facility] 01/19 after inadvertent removal of his tracheostomy. He was transferred to [facility] ICU for surgical evaluation. On arrival [...] HD successfully. hemodynamically stable. Transferred out to [facility] 01/27 Interval History: No overnight issues. Patient returned from HD Resting in bed comfortably No complaints Phlegm much decreased today Afebrile vss Reported he declined wound care for dressing change today Adult diet Dysphagia - Pureed 3 Day Weight Change: Unable to Calculate 24HR INTAKE/OUTPUT: Intake/Output Summary (Last 24 hours) at 01/29/2025 0890 Last data filed at 01/29/2025 0651 Gross per 24 hour Intake 800 ml Output -- Net 800 ml Past Medical History: Past Medical History: Diagnosis Date Acute renal failure (ARF) ([facility]) 10/19/2019 Anemia 12/30/2021 Calcification of abdominal aorta ([facility]) 10/08/202309/[address] abd Diverticulosis 10/08/2023 ESRD on hemodialysis ([facility]) ([facility]) 10/26/2019 Hemodialysis patient ([facility]) ([facility]) HTN (hypertension) 12/01/2022 Hypertension IgA nephropathy IgA nephropathy determined by biopsy of kidney 10/26/2019 Missed vaccination due to patient refusal 10/08/2023 Has a number of non-scientific based beliefs which interfere with his understanding and acceptance of the medical benefit of vaccination. Nonrheumatic aortic valve stenosis 10/08/2023 Paroxysmal A-fib ([facility]) ([facility]) 08/18/2023 Tobacco abuse 10/08/2023 LABS: CBC: Recent [...] QT Interval 413 QTC Interval 515 P [place] 69 QRS [place] 93 T Wave [place] 87 VT Interval 148 Impression Sinus rhythm Left atrial [...] sodium chloride 0.9 % 100 mL IVPB (Add-[place]), 3,000 mg, IntraVENous, q24h, Radha Yee MD, [...] q5 min PRN, Earlene Lozano APRN - ALCOHOL STILL OPERATOR, 5 mg at 01/25/25 1846 metoprolol tartrate (Lopressor) tablet 25 mg, 25 mg, Per G Tube, BID, Earlene Lozano APRN - ALCOHOL STILL OPERATOR, 25 mg at 01/28/25 2222 midodrine (Proamatine) [...] PRN, Noman Owens MD, 10 mg at 01/28/252 prochlorperazine (Compazine) injection 5 mg, 5 mg, [...] by ID Ordered tunneled central line placement STAVE INSPECTOR follow, dysphagia diet PT OT DC planning Past Medical History: Diagnosis Date Acute renal failure (ARF) ([facility]) 10/19/2019 Anemia 12/30/2021 Calcification of abdominal aorta (HCC) 10/08/202309/[address] abd Diverticulosis 10/08/2023 ESRD on hemodialysis ([facility] ([facility]) 10/26/2019 Hemodialysis patient ([facility] ([facility]) HTN (hypertension) 12/01/2022 Hypertension IgA nephropathy IgA nephropathy determined by biopsy of kidney 10/26/2019 Missed vaccination due to patient refusal 10/08/2023 Has a number of non-scientific based beliefs which interfere with his understanding and acceptance of the medical benefit of vaccination. Nonrheumatic aortic valve stenosis 10/08/2023 Paroxysmal A-fib ([facility]) ([facility]) 08/18/2023 Tobacco abuse 10/08/2023 Plan As above [...] MD Division of Hospitalist Medicine Inpatient Medical Services/[facility] Images from the original note were not included. [facility] Wound Care Progress Note Jun [...] IgA nephropathy, severe that presented to [facility] ED from a facility due to trach [...] History: Diagnosis Date Acute renal failure (ARF) ([facility]) 10/19/2019 Anemia 12/30/2021 Calcification of abdominal aorta ([facility]) 10/08/202309/[address] abd Diverticulosis 10/08/2023 ESRD on hemodialysis ([facility] ([facility]) 10/26/2019 Hemodialysis patient ([facility]) ([facility]) HTN (hypertension) 12/01/2022 Hypertension IgA nephropathy IgA [...] Performed by Bob Watson MD at [facility] Cardiac Cath/EP Lab CARDIAC CATHETERIZATION Bilateral 11/01/2024 Performed by Bob Watson MD at [facility] Cardiac Cath/EP Lab CARDIAC CATHETERIZATION N/A 11/01/2024 Performed by Bob Watson MD at [facility] Cardiac Cath/EP Lab COLONOSCOPY N/A 01/24/2025 Performed by Chadd Davis MD at [facility] ENDOSCOPY FISTULAGRAM (HISTORICAL) Left 09/15/2021 LEFT UPPER ARM HX AV FISTULA CREATION IR EMBOLIZATION 10/14/2024 IR EMBOLIZATION 10/14/2024 [facility] SPECIAL PROCEDURES IR FISTULAGRAM 08/07/2022 IR [...] Medication Sig Dispense Refill epoetin rowan-epbx (Retacrit) 54521 UNIT/ML injection Inject 0.79 mL (7,900 Units) [...] apply Betadine and allow to dry, leave SUPERVISOR SHIPFITTERS daily and PRN -Recommend PVRs for circulation check Nutritional support Wound Care to follow Recommend to follow up at [facility] Outpatient wound care center after hospital [...] Gill DO at 01/29/2025 4:37 PM EDT [facility] Hospital Anticoagulation Management Service (SAILAJA) Inpatient Warfarin Consult HPI: Jun Snyder is a 59 y.o. male admitted on 01/19/2025 for Complication of tracheostomy ([facility] ([facility]) [J95.00] Past Medical History: Diagnosis Date Acute renal failure (ARF) ([facility]) 10/19/2019 Anemia 12/30/2021 Calcification of abdominal aorta ([facility]) 10/08/202309/[address] abd Diverticulosis 10/08/2023 ESRD on hemodialysis ([facility] ([facility]) 10/26/2019 Hemodialysis patient ([facility] ([facility]) HTN (hypertension) 12/01/2022 Hypertension IgA nephropathy IgA nephropathy determined by biopsy of kidney 10/26/2019 Missed vaccination due to patient refusal 10/08/2023 Has a number of non-scientific based beliefs which interfere with his understanding and acceptance of the medical benefit of vaccination. Nonrheumatic aortic valve stenosis 10/08/2023 Paroxysmal A-fib ([facility]) ([facility]) 08/18/2023 Tobacco abuse 10/08/2023 Patient is on [...] dose accordingly 3. Will facilitate f/u at [facility] upon discharge Fatuma Odonnell RPh SAILAJA is available daily [phone] via Uskape. If no response on [employer] Chat then please page [phone]. [facility] Progress Note Mr. Jun Snyder is [...] status and labs. Please message me through [employer] chat with any questions or concerns. Wellington Nicole MD 01/28/2025 2:08 PM [facility] [address] [place] [address], [address] [place] [address] Office: [phone] Hospitalist Progress Note 01/28/2025 Subjective: Admit Date: 01/19/2025 PCP: Leilani Troncoso Room#: 1C-144/1C-144 A Brief Hospital Summary: Jun Snyder is a 59 y.o. male who who presented to [facility] 01/19 after inadvertent removal of his tracheostomy. He was transferred to [facility] ICU for surgical evaluation. On arrival [...] HD successfully. hemodynamically stable. Transferred out to [facility] 01/27 Interval History: No overnight issues. [...] History: Diagnosis Date Acute renal failure (ARF) ([facility]) 10/19/2019 Anemia 12/30/2021 Calcification of abdominal aorta ([facility]) 10/08/202309/[address] abd Diverticulosis 10/08/2023 ESRD on hemodialysis ([facility]) ([facility]) 10/26/2019 Hemodialysis patient ([facility]) ([facility]) HTN (hypertension) 12/01/2022 Hypertension IgA nephropathy IgA nephropathy determined by biopsy of kidney 10/26/2019 Missed vaccination due to patient refusal 10/08/2023 Has a number of non-scientific based beliefs which interfere with his understanding and acceptance of the medical benefit of vaccination. Nonrheumatic aortic valve stenosis 10/08/2023 Paroxysmal A-fib ([facility]) ([facility]) 08/18/2023 Tobacco abuse 10/08/2023 LABS: CBC: Recent [...] exists for component: LABALBU PT/INR: Recent Labs 01/26/258 01/27/25 0006 01/28/25 0516 PROTIME 18.3* 19.9* 21.9* INR 1.8* 1.9* 2.2* CARDIAC ENZYMES: No results for input(s): "TROPONINI" in the last 72 hours. Procalcitonin: No results found for: "PROCAL" COVID-19 PCR: No results for input(s): "COVID19" in the last 72 hours. Encounter Date: 01/19/25 ECG 12 lead Result Value Heart Rate 93 QRSD Interval 113 QT Interval 413 QTC Interval 515 P [place] 69 QRS [place] 93 T Wave [place] 87 VT Interval 148 Impression Sinus rhythm Left atrial [...] sodium chloride 0.9 % 100 mL IVPB (Add-[place]), 3,000 mg, IntraVENous, q24h, Radha Yee MD, [...] 15 g, 15 g, Oral, PRN, Minor Clolier MD heparin 25,000 units in dextrose 5% [...] q5 min PRN, Earlene Lozano APRN - ALCOHOL STILL OPERATOR, 5 mg at 01/25/25 1846 metoprolol tartrate (Lopressor) tablet 25 mg, 25 mg, Per G Tube, BID, Earlene Lozano APRN - ALCOHOL STILL OPERATOR, 25 mg at 01/28/25 0848 midodrine (Proamatine) [...] for sacral wound by ID PT OT STAVE INSPECTOR follow, dysphagia diet Past Medical History: Diagnosis Date Acute renal failure (ARF) ([facility]) 10/19/2019 Anemia 12/30/2021 Calcification of abdominal aorta ([facility]) 10/08/202309/[address] abd Diverticulosis 10/08/2023 ESRD on hemodialysis ([facility]) ([facility]) 10/26/2019 Hemodialysis patient ([facility]) ([facility]) HTN (hypertension) 12/01/2022 Hypertension IgA nephropathy IgA nephropathy determined by biopsy of kidney 10/26/2019 Missed vaccination due to patient refusal 10/08/2023 Has a number of non-scientific based beliefs which interfere with his understanding and acceptance of the medical benefit of vaccination. Nonrheumatic aortic valve stenosis 10/08/2023 Paroxysmal A-fib ([facility]) ([facility]) 08/18/2023 Tobacco abuse 10/08/2023 Plan As above [...] MD Division of Hospitalist Medicine Inpatient Medical Services/[facility] Anticoagulation Management Service (SAILAJA) Inpatient Warfarin Consult HPI: Jun Snyder is a 59 y.o. male admitted on 01/19/2025 for Complication of tracheostomy ([facility]) ([facility]) [J95.00] Past Medical History: Diagnosis Date Acute renal failure (ARF) ([facility]) 10/19/2019 Anemia 12/30/2021 Calcification of abdominal aorta ([facility]) 10/08/202309/[address] abd Diverticulosis 10/08/2023 ESRD on hemodialysis ([facility]) ([facility]) 10/26/2019 Hemodialysis patient ([facility]) ([facility]) HTN (hypertension) 12/01/2022 Hypertension IgA nephropathy IgA nephropathy determined by biopsy of kidney 10/26/2019 Missed vaccination due to patient refusal 10/08/2023 Has a number of non-scientific based beliefs which interfere with his understanding and acceptance of the medical benefit of vaccination. Nonrheumatic aortic valve stenosis 10/08/2023 Paroxysmal A-fib ([facility] ([facility]) 08/18/2023 Tobacco abuse 10/08/2023 Patient is on [...] dose accordingly 3. Will facilitate f/u at [facility] upon discharge Vu Guido PharmD [facility] is available daily [phone] via [employer]sk[employer]. If no response on [employer] Chat then please page [phone]. [facility] Anticoagulation Management Service (SAILAJA) Inpatient Warfarin Consult HPI: Jun Snyder is a 59 y.o. male admitted on 01/19/2025 for Complication of tracheostomy ([facility]) ([facility]) [J95.00] Past Medical History: Diagnosis Date Acute renal failure (ARF) ([facility]) 10/19/2019 Anemia 12/30/2021 Calcification of abdominal aorta ([facility]) 10/08/202309/[address] abd Diverticulosis 10/08/2023 ESRD on hemodialysis ([facility]) ([facility]) 10/26/2019 Hemodialysis patient ([facility]) ([facility]) HTN (hypertension) 12/01/2022 Hypertension IgA nephropathy IgA nephropathy determined by biopsy of kidney 10/26/2019 Missed vaccination due to patient refusal 10/08/2023 Has a number of non-scientific based beliefs which interfere with his understanding and acceptance of the medical benefit of vaccination. Nonrheumatic aortic valve stenosis 10/08/2023 Paroxysmal A-fib ([facility] ([facility]) 08/18/2023 Tobacco abuse 10/08/2023 Patient is on [...] dose accordingly 3. Will facilitate f/u at [facility] upon discharge Vu Guido PharmD [facility] is available daily [phone] via [employer]. If no response on [employer] then please page [phone]. [facility] Respiratory Care Department Progress Note As [...] care of this patient, [facility] Progress Note Mr. Jun Snyder is [...] last 7 days Lab Units 01/27/25 0006 01/26/25205201/26/2595101/26/2524701/25/2553 01/25/25 0251 WBC AUTO 10*3/uL 10.0 -- [...] MD 01/27/2025 7:11 AM [facility] [address] [place] [address], [address] [place] [address] Office: [phone] ICU Progress Note Name: Jun Snyder : 1965(59 y.o.) Date: 01/27/25 Team: MICU Attending: DARRYN HIGGINS Subjective: Hospital Summary: Jun Snyder is a 59 y.o. male who who presented to [facility] 01/19 after inadvertent removal of his tracheostomy. He was transferred to [facility] ICU for surgical evaluation. On arrival [...] Normal [] Scar/Lesion/Mass Inspection of teeth/lips/gums Dentition: [x]Ute Teeth []Dentures Lips/Gums: [x]Intact []Lesion Present Mucosa: [x]Yoder []Moist []Dry Neck: External Appearance Overall Appearance: [...] displayed. ABGs: No results for input(s): "PHART", "ZJA1BAV", "PO2ART", "QNS2CLW", "SO2ART", "Y8RYWJKS" in the last 72 hours. Lactic Acid: [...] Plan: Principal Problem: Complication of tracheostomy (CMS/HCC) ([facility]) Active Problems: Severe malnutrition (CMS/HCC) ([facility]) BRBPR (bright red blood per rectum) GIB [...] H/H and PT/INR q12 - Diet per STAVE INSPECTOR recs Appreciate Recs: Pureed solids and Thin [...] apply Betadine and allow to dry, leave SUPERVISOR SHIPFITTERS daily and PRN - PVRs for circulation check - rec wound vac for sacral wound, change 3x/wk and PRN Hx CAD s/p CABG Severe Aortic stenosis s/p proesthetic mechanical valve S/p 23mm [place] mechanical valve replacement on 10/12. TTE 11/24 without mechanical valve regurgitation or stenosis - heparin - Warfarin 0.5 mg once daily, pharmacy to dose ESRD (on HD [facility]) HAGMA - improving Hypotension, chronic S/P HD, [...] and warfarin Disposition: Stable for Transfer to [facility] Cosigned by Darryn Higgins MD at [...] PT/OT - Remains stable for transfer to [facility]. Code Status: Full Code Disposition: ok for F Time spent preparing to see the patient, obtaining/reviewing separately obtained history, completing an appropriate medical examination of the patient, ordering medications/tests/procedures, documenting clinical information on the EMR, and/or coordinating care is a subsequent visit: 35 minutes (Level II). Darryn Higgins MD Pulmonary and Critical Care Medicine Attending Pager #[phone] Images from the original note were not included. PHYSICAL THERAPY [facility] Name/MRN: Jair Snyder ([id number]) Date: 01/26/2025 Attempt Note Pt on iHD. Will re-attempt as able. Chantal Rossi PT [facility] Progress Note Mr. Jun Snyder is [...] MD 01/26/2025 1:55 PM [facility] [address], [address] [place] [id number] Office: [phone] Speech-Language Pathology Pt is a hold at this time, as he is receiving dialysis. Will re-attempt next date as schedule permits. Treva Mccallum MS. CCC-STAVE INSPECTOR ICU Transfer Checklist Hospital course: 59 y.o. male PMH trach s/p removal, peg, HTN, afib, ESRD on TTS HD, aortic stenosis s/p mechanical valve who presented to [facility] 01/19 after inadvertent removal of his tracheostomy. Transferred to [facility] ICU for surgical evaluation. On arrival [...] convert to PO if able) None Anticipated Ballinger Medications (ICU initiated) or Dose Changes and Indication No Permanently Discontinued Home Medications and Reason for medication contraindication No Payne Catheter (please remove if able. Note: place DC order) No Central Line (please remove if able. Note: place DC order) No Transfer Discussed with: Dr. Russell [facility] If additional questions for ICU team within 24 hours of ICU transfer, page argon tester ICU resident for clarifications. [facility] Anticoagulation Management Service (SAILAJA) Inpatient Warfarin Consult HPI: Jun Snyder is a 59 y.o. male admitted on 01/19/2025 for Complication of tracheostomy ([facility] ([facility]) [J95.00] Past Medical History: Diagnosis Date Acute renal failure (ARF) ([facility]) 10/19/2019 Anemia 12/30/2021 Calcification of abdominal aorta ([facility]) 10/08/202309/[address] abd Diverticulosis 10/08/2023 ESRD on hemodialysis ([facility] ([facility]) 10/26/2019 Hemodialysis patient ([facility] ([facility]) HTN (hypertension) 12/01/2022 Hypertension IgA nephropathy IgA nephropathy determined by biopsy of kidney 10/26/2019 Missed vaccination due to patient refusal 10/08/2023 Has a number of non-scientific based beliefs which interfere with his understanding and acceptance of the medical benefit of vaccination. Nonrheumatic aortic valve stenosis 10/08/2023 Paroxysmal A-fib ([facility] ([facility]) 08/18/2023 Tobacco abuse 10/08/2023 Patient is on [...] 01/24/25 1217 01/25/25 0251 01/25/25 0953 01/25/25 19401/26/2524701/26/25 09 HGB 8.0* < > 7.0* < > [...] dose accordingly 3. Will facilitate f/u at [facility] upon discharge Adalberto Deleon PharmD [facility] is available daily [phone] via [employer]. If no response on [employer] Chat then please page [phone]. Images from the original note were not included. [facility] - Infectious Diseases Attending Progress [...] from the original note were not included. [facility] Wound Care Progress Note Jun [...] IgA nephropathy, severe that presented to [facility] ED from a facility due to trach dislodgement. Wound Care consulted for Pressure Injury sacrum and Ischemic ulcers to left toes" Patient resting in [place] with floor RN present at bedside. Wound vac changed at time of visit with patient tolerating well. Denies any needs. PAST MEDICAL HISTORY Past Medical History: Diagnosis Date Acute renal failure (ARF) ([facility]) 10/19/2019 Anemia 12/30/2021 Calcification of abdominal aorta ([facility]) 10/08/202309/[address] abd Diverticulosis 10/08/2023 ESRD on hemodialysis ([facility] ([facility]) 10/26/2019 Hemodialysis patient ([facility] ([facility]) HTN (hypertension) 12/01/2022 Hypertension IgA nephropathy IgA nephropathy determined by biopsy of kidney 10/26/2019 Missed vaccination due to patient refusal 10/08/2023 Has a number of non-scientific based beliefs which interfere with his understanding and acceptance of the medical benefit of vaccination. Nonrheumatic aortic valve stenosis 10/08/2023 Paroxysmal A-fib ([facility] ([facility]) 08/18/2023 Tobacco abuse 10/08/2023 PAST SURGICAL HISTORY Past Surgical History: Procedure Laterality Date APPENDECTOMY CARDIAC CATHETERIZATION N/A 10/09/2024 Performed by Bob Watson MD at [facility] Cardiac Cath/EP Lab CARDIAC CATHETERIZATION Bilateral 11/01/2024 Performed by Bob Watson MD at [facility] Cardiac Cath/EP Lab CARDIAC CATHETERIZATION N/A 11/01/2024 Performed by Bob Watson MD at [facility] Cardiac Cath/EP Lab COLONOSCOPY N/A 01/24/2025 Performed by Chadd Davis MD at [facility] ENDOSCOPY FISTULAGRAM (HISTORICAL) Left 09/15/2021 LEFT UPPER ARM HX AV FISTULA CREATION IR EMBOLIZATION 10/14/2024 IR EMBOLIZATION 10/14/2024 [facility] SPECIAL PROCEDURES IR FISTULAGRAM 08/07/2022 IR [...] Medication Sig Dispense Refill epoetin rowan-epbx (Retacrit) 05312 UNIT/ML injection Inject 0.79 mL (7,900 Units) [...] follow Recommend to follow up at [facility] Outpatient wound care center after hospital [...] 59 y.o. male who who presented to [facility] 01/19 after inadvertent removal of his tracheostomy. He was transferred to [facility] ICU for surgical evaluation. On arrival [...] Normal [] Scar/Lesion/Mass Inspection of teeth/lips/gums Dentition: [x]Ute Teeth []Dentures Lips/Gums: [x]Intact []Lesion Present Mucosa: [x]Yoder []Moist []Dry Neck: External Appearance Overall Appearance: [...] displayed. ABGs: No results for input(s): "PHART", "PMG1QKI", "PO2ART", "IAU9NSY", "SO2ART", "Y4YYWULA" in the last 72 hours. Lactic Acid: [...] Plan: Principal Problem: Complication of tracheostomy (CMS/HCC) ([facility]) Active Problems: Severe malnutrition (CMS/HCC) ([facility]) BRBPR (bright red blood per rectum) GIB [...] peripheral blood smear pending - Diet per STAVE INSPECTOR recs - continue q12 H/H and PT/INR [...] apply Betadine and allow to dry, leave SUPERVISOR SHIPFITTERS daily and PRN - PVRs for circulation [...] on heparin and warfarin Disposition: Transfer to [facility] Cosigned by Darryn Higgins MD at [...] hemoglobin stable today. Stable for transfer to [facility]. Code Status: Full Code Disposition: Transfer to [facility] Time spent preparing to see the patient, obtaining/reviewing separately obtained history, completing an appropriate medical examination of the patient, ordering medications/tests/procedures, documenting clinical information on the EMR, and/or coordinating care is a subsequent visit: 35 minutes (Level II). Darryn Higgins MD Pulmonary and Critical Care Medicine Attending Pager #[phone] Images from the original note were not included. [facility] - Infectious Diseases Attending Progress [...] NA 138 01/25/2025 0251 K 3.9 01/25/2025 025 CL 98 01/25/2025 025 CO2 24 01/25/2025 025 BUN 15 01/25/2025 025 CREATININE 2.54 (H) 01/25/2025 025 CREATININE 9.99 (H) 10/27/2019 0545 GLUCOSE 74 01/25/2025 025 CALCIUM 10.1 01/25/2025 0251 PROT 7.6 01/22/2025 [...] s/p mechanical valve who presented to [facility] 01/19 after inadvertent removal of his tracheostomy. Transferred to [facility] ICU for surgical evaluation. On arrival [...] convert to PO if able) None Anticipated Ballinger Medications (ICU initiated) or Dose Changes and Indication No Permanently Discontinued Home Medications and Reason for medication contraindication No Payne Catheter (please remove if able. Note: place DC order) No Central Line (please remove if able. Note: place DC order) No Transfer Discussed with: Dr. Russell, [facility] If additional questions for ICU team within 24 hours of ICU transfer, page argon tester ICU resident for clarifications. Images from the original note were not included. Speech-Language Pathology SPEECH LANGUAGE PATHOLOGY [facility] Modified Barium Swallow Study Patient Name: Jun [...] swallow). Pt would benefit from skilled acute STAVE INSPECTOR services to ensure diet tolerance, train swallow [...] History: Diagnosis Date Acute renal failure (ARF) ([facility]) 10/19/2019 Anemia 12/30/2021 Calcification of abdominal aorta ([facility]) 10/08/202309/[address] abd Diverticulosis 10/08/2023 ESRD on hemodialysis ([facility] ([facility]) 10/26/2019 Hemodialysis patient ([facility]) ([facility]) HTN (hypertension) 12/01/2022 Hypertension IgA nephropathy IgA nephropathy determined by biopsy of kidney 10/26/2019 Missed vaccination due to patient refusal 10/08/2023 Has a number of non-scientific based beliefs which interfere with his understanding and acceptance of the medical benefit of vaccination. Nonrheumatic aortic valve stenosis 10/08/2023 Paroxysmal A-fib ([facility]) ([facility]) 08/18/2023 Tobacco abuse 10/08/2023 Past Surgical History: Past Surgical History: Procedure Laterality Date APPENDECTOMY CARDIAC CATHETERIZATION N/A 10/09/2024 Performed by Bob Watson MD at [facility] Cardiac Cath/EP Lab CARDIAC CATHETERIZATION Bilateral 11/01/2024 Performed by Bob Watson MD at [facility] Cardiac Cath/EP Lab CARDIAC CATHETERIZATION N/A 11/01/2024 Performed by Bob Watson MD at [facility] Cardiac Cath/EP Lab COLONOSCOPY N/A 01/24/2025 Performed by Chadd Davis MD at [facility] ENDOSCOPY FISTULAGRAM (HISTORICAL) Left 09/15/2021 LEFT UPPER ARM HX AV FISTULA CREATION IR EMBOLIZATION 10/14/2024 IR EMBOLIZATION 10/14/2024 [facility] SPECIAL PROCEDURES IR FISTULAGRAM 08/07/2022 IR FISTULAGRAM 08/07/2022 [facility] IR IMAGING TONSILLECTOMY (HISTORICAL) Admission Diagnosis: Patient Active Problem List Diagnosis Date Noted Severe malnutrition ([facility]) ([facility]) 01/19/2025 Complication of tracheostomy ([facility]) ([facility]) 01/19/2025 long term care pharmacist (current) use of antibiotics 01/12/2025 Acute respiratory failure with hypoxia ([facility]) [J96.01] 01/08/2025 Tracheostomy care ([facility]) [Z43.0] 01/08/2025 Pulmonary embolism ([facility]) 01/08/2025 Sacral osteomyelitis ([facility]) ([facility]) 01/03/2025 Pneumonia of both lungs due to methicillin susceptible Staphylococcus aureus (MSSA) ([facility]) 01/01/2025 Leukocytosis 12/30/2024 Decubitus ulcer of sacral region, unstageable ([facility]) 12/30/2024 Peritonitis due to fungus ([facility]) 11/30/2024 History of abdominal surgery 11/30/2024 Leg DVT (deep venous thromboembolism), acute, left ([facility]) 11/30/2024 Ischemic ulcer of toe of left foot, limited to breakdown of skin ([facility]) 11/30/2024 Tracheostomy dependence ([facility]) 11/30/2024 Pleural effusion 11/28/2024 Gastric ulceration 2024 Atrial flutter, unspecified type ([facility]) 10/03/2024 RSV (acute bronchiolitis due to respiratory syncytial virus) 10/03/2024 Diverticulosis 10/08/2023 Nonrheumatic aortic valve stenosis 10/08/2023 Calcification of abdominal aorta ([facility]) 10/08/2023 Missed vaccination due to patient refusal 10/08/2023 Tobacco abuse 10/08/2023 Alcohol use disorder in remission 10/08/2023 Paroxysmal A-fib [facility] CENTER/[facility]) ([facility]) 08/18/2023 HTN (hypertension) 12/01/2022 ESRD on hemodialysis ([facility]) ([facility]) 10/26/2019 IgA nephropathy determined by biopsy of kidney 10/26/2019 BRBPR (bright red blood per rectum) 01/19/2025 Aortic stenosis 10/03/2024 Upper GI bleed 10/03/2024 S/P AVR 10/03/2024 Acute hypoxic respiratory failure ([facility]) 10/03/2024 Acute encephalopathy 10/03/2024 Pneumoperitoneum 10/03/2024 Anemia 12/30/2021 Pain: Pt denies any current pain. Reason for current admission: Patient is a 59 yo male with a PMH of Trach and peg, HTN, paroxysmal a-fib, R occipital ICH, Tobacco abuse, ARF - dialysis (TTS; LUE AVF), diverticulosis, IgA nephropathy, severe that presented to [facility] ED from a facility due to trach dislodgement. Per patient, was trying to disconnect his vent to transfer to another room but accidentally pulled out his tracheostomy. This event happened approximately 45 minutes before ED arrival. ED attempted to place tracheostomy tube back but were unsuccessful. Decision was made to transfer patient to [facility] ICU for further airway management and [...] Expected End: 02/02/25 Resolved: 01/25/25 Therapy Time STAVE INSPECTOR Individual Minutes Time In: 1145 Time Out: 1205 Minutes: 20 Christina Nunez MA, CCC/STAVE INSPECTOR [facility] Anticoagulation Management Service ([facility]) Inpatient Warfarin Consult HPI: Jun Snyder is a 59 y.o. male admitted on 01/19/2025 for Complication of tracheostomy ([facility]) ([facility]) [J95.00] Past Medical History: Diagnosis Date Acute renal failure (ARF) ([facility]) 10/19/2019 Anemia 12/30/2021 Calcification of abdominal aorta ([facility]) 10/08/202309/[address] abd Diverticulosis 10/08/2023 ESRD on hemodialysis ([facility]) ([facility]) 10/26/2019 Hemodialysis patient ([facility]) ([facility]) HTN (hypertension) 12/01/2022 Hypertension IgA nephropathy IgA nephropathy determined by biopsy of kidney 10/26/2019 Missed vaccination due to patient refusal 10/08/2023 Has a number of non-scientific based beliefs which interfere with his understanding and acceptance of the medical benefit of vaccination. Nonrheumatic aortic valve stenosis 10/08/2023 Paroxysmal A-fib ([facility]) ([facility]) 08/18/2023 Tobacco abuse 10/08/2023 Patient is on [...] dose accordingly 3. Will facilitate f/u at [facility] upon discharge Adalberto Deleon PharmD, PharmD [facility] is available daily [phone] via [employer]. If no response on [employer] Chat then please page [phone]. [facility] Progress Note Mr. Jun Snyder is [...] 7 days Lab Units 01/25/25 0953 01/25/25 02501/24/25 2348 01/24/25 1217 01/24/25 0610 01/23/25 1514 [...] Nicole MD 01/25/2025 11:44 AM [facility] [address] [place] [address], [address] [place] [address] Office: [phone] Images from the original note were not [...] time - planning to eventually discharge to [facility] - will forward chart to Palliative [...] AV replacement Supratherapeutic INR - [facility] 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 valve in 09/2024 - coumadin held due to bleeding and supratherapeutic levels Chronic respiratory failure s/p tracheostomy Tracheostomy dislodgement - has been saturating well without trach on RA so has not been replaced Palliative Care Encounter - Code Status: Full Code - Jun Snyder has been seen in consultation by [facility] Palliative Care during their admission to [facility]. They currently have no uncontrolled symptoms and [...] Palliative Care IDT members involved: Palliative Care Grey Goods Tester Discussed the plan of care with the [...] to have bile peritonitis" 11/28/24: transferred to [facility] He ended up developing sacral ulcer and osteomyelitis at [facility]. He then ended up dislodging his tracheostomy, and was brought to [facility] ED for further care. Palliative care [...] much better. Planning to eventually discharge to [facility]. Discussed trying to get palliative care to [...] status: SNF Work history: unknown status: unknown Confucianism annette: Non-Scientologist ROS: See palliative care ROS/ESAS below; All other systems were reviewed and are negative. Purchase Symptom Assessment Score Purchase Score Pain Score (if non-verbal, add .FLACC [...] 59 y.o. male who who presented to [facility] 01/19 after inadvertent removal of his tracheostomy. He was transferred to [facility] ICU for surgical evaluation. On arrival [...] 042) Pulse 97 (01/25/25 0413) Resp 16 (01/25/25412) [...] Normal [] Scar/Lesion/Mass Inspection of teeth/lips/gums Dentition: [x]Ute Teeth []Dentures Lips/Gums: [x]Intact []Lesion Present Mucosa: [x]Yoder []Moist []Dry Neck: External Appearance Overall Appearance: [...] hours- BMP: Recent Labs 01/23/25 0430 01/24/25 04201/24/25121601/25/25 0251 NA 140 139 138 138 [...] 19.2* ABGs: No results for input(s): "PHART", "AQN2HTZ", "PO2ART", "EPL8QUN", "SO2ART", "F6OLQWET" in the last 72 hours. Lactic Acid: Recent Labs 01/24/25 0830 LACTATE 0.9 INR: Recent Labs 01/24/25 0429 01/24/257 01/24/258 INR 1.5* 1.5* 1.5* Cardiac Injury Profile: [...] Plan: Principal Problem: Complication of tracheostomy (CMS/HCC) ([facility]) Active Problems: Severe malnutrition (CMS/HCC) ([facility]) BRBPR (bright red blood per rectum) GIB [...] peripheral blood smear pending - Diet per STAVE INSPECTOR recs - continue q12 H/H and PT/INR [...] HD MW) HAGMA - improving Hypotension, chronic HAGMA likely [...] Prophylaxis: SCDs warfarin held Disposition: Transfer to [facility] Cosigned by Darryn Higgins MD at [...] and appropriate. If stable can transfer to [facility]. Code Status: Full Code Disposition: Transfer to [facility] Time spent preparing to see the patient, obtaining/reviewing separately obtained history, completing an appropriate medical examination of the patient, ordering medications/tests/procedures, documenting clinical information on the EMR, and/or coordinating care is a subsequent visit: 35 minutes (Level II). Darryn Higgins MD Pulmonary and Critical Care Medicine Attending Pager #[phone] Images from the original note were not included. [facility] - Infectious Diseases Advanced Practice [...] 3.5 CL 94* 102 98 100 CO2 21* 26 BUN 53* 22 27* 9 [...] 01/22 A baumannii screen: in process Previous ([facility]) 01/02- sacral wound cx- E faecalis (Amp-S), skin ila, Clostridium clostrioforme 01/01- blood cx- 2/2 NG 12/30- blood cx- 2/2 NGTD 12/30- sputum cx- MSSA, resp ila 12/25- blood cx- 2/2 negative 12/14- sputum cx- MSSA, resp ila 12/14- MRSA pcr- MSSA 12/11- sputum cx- MSSA, resp ila Previous ([facility]) 11/28- L pleural fluid- negative 11/16- [...] be of moderate complexity. Mikala MORAN PA-C [facility] Infectious Disease [facility] Progress Note Mr. Jun Snyder is [...] status and labs. Please message me through [employer] chat with any questions or concerns. Wellington Nicole MD 01/24/2025 3:17 PM [facility] [address], [address] [place] [address] Office: [phone] Nutrition Assessment Type and Reason for Visit: [...] was receiving and tolerating while at [facility]. Noted STAVE INSPECTOR is following- trach remains out and pt stable without it. STAVE INSPECTOR most recently recommended MBSS completion- will follow and monitor STAVE INSPECTOR recs and need for adjustment in EN [...] ICU after he initially presented to [facility] ED on 01/19/25 due to inadvertent removal of his tracheostomy, pt was transferred to [facility] ICU for surgical evaluation, on arrival [...] complete 6 week course, Nephrology remains following / ESRD- continuing M/W/F schedule at this time, pt had HD today with 1000mL removed, Surgery was consulted for evaluation of bleeding sacral wound- saigned off yesterday with recs for no acute surgical intervention and to continue wound care/vac, wound care remains following due to sacrum stage 4 with vac management and also left toes 1-4 arterial ulcers, STAVE INSPECTOR remains following- yesterday noted recs to continue [...] able to be re-initiated as well as STAVE INSPECTOR recs for possible diet advancement s/p MBSS. [...] bedscale, 10/31: 200#, 11/28: 161#, 01/18: 142#) [place] Body Weight (lbs) (Calculated): 166 lbs [place] Body Weight (Kg) (Calculated): 75 kg % [place] Body Weight (Calculated): 78.2 % BMI (kg/m2) [...] determine [address] Contact: available via IMANIN or *[phone] [facility] Anticoagulation Management Service ([facility]ILAJA) Inpatient Warfarin Consult HPI: Jun Snyder is a 59 y.o. male admitted on 01/19/2025 for Complication of tracheostomy ([facility]) ([facility]) [J95.00] Past Medical History: Diagnosis Date Acute renal failure (ARF) ([facility]) 10/19/2019 Anemia 12/30/2021 Calcification of abdominal aorta ([facility]) 10/08/202309/[address] abd Diverticulosis 10/08/2023 ESRD on hemodialysis ([facility]) ([facility]) 10/26/2019 Hemodialysis patient ([facility]) ([facility]) HTN (hypertension) 12/01/2022 Hypertension IgA nephropathy IgA nephropathy determined by biopsy of kidney 10/26/2019 Missed vaccination due to patient refusal 10/08/2023 Has a number of non-scientific based beliefs which interfere with his understanding and acceptance of the medical benefit of vaccination. Nonrheumatic aortic valve stenosis 10/08/2023 Paroxysmal A-fib ([facility]) ([facility]) 08/18/2023 Tobacco abuse 10/08/2023 Patient is on [...] dose accordingly 3. Will facilitate f/u at [facility] upon discharge Fatuma Odonnell RPh, PharmD [facility] is available daily [phone] via [employer]. If no response on [employer] Chat then please page [phone]. ICU Progress Note Name: Jun Snyder : 1965(59 y.o.) Date: 01/24/25 Team: MICU Attending: Dr. Higgins Subjective: Hospital Summary: Mr Snyder is a 59 year old male who presented to [facility] 01/19 after inadvertent removal of his tracheostomy. He was transferred to [facility] ICU for surgical evaluation. On arrival [...] Normal [] Scar/Lesion/Mass Inspection of teeth/lips/gums Dentition: []Ute Teeth []Dentures Lips/Gums: []Intact []Lesion Present Mucosa: [x]Yoder []Moist [x]Dry Neck: External Appearance Overall Appearance: [...] 19.4* ABGs: No results for input(s): "PHART", "CQC5LXK", "PO2ART", "PUF9UKO", "SO2ART", "J8IGKHZV" in the last 72 hours. Lactic Acid: [...] post scope if stable can transfer to [facility] tomorrow Code Status: Full Code Disposition: Remain in ICU Time spent preparing to see the patient, obtaining/reviewing separately obtained history, completing an appropriate medical examination of the patient, ordering medications/tests/procedures, documenting clinical information on the EMR, and/or coordinating care is a subsequent visit: 35 minutes (Level II). Darryn Higgins MD Pulmonary and Critical Care Medicine Attending Pager #[phone] [facility] Progress Note Mr. Jun Snyder is [...] Nicole MD 01/23/2025 5:03 PM [facility] [address], [address] [place] [address] Office: [phone] Images from the original note were not included. Speech-Language Pathology SPEECH LANGUAGE PATHOLOGY [facility] Dysphagia Treatment Note Patient Name: Jun Snyder [...] Start: 01/19/25 Expected End: 02/02/25 Therapy Time STAVE INSPECTOR Individual Minutes Time In: 1315 Time Out: 1330 Minutes: 15 FRANKLIN Singh Images from the original note were not included. [facility] - Infectious Diseases Advanced Practice [...] sputum cx- MSSA, resp ila Previous ([facility]) 11/28- L pleural fluid- negative 11/16- [...] be of moderate complexity. Mikala MORAN PA-C [facility] Infectious Disease Images from the original note [...] Active Problem List Diagnosis Anemia Paroxysmal A-fib ([facility]) ([facility]) HTN (hypertension) ESRD on hemodialysis ([facility]) ([facility]) IgA nephropathy determined by biopsy of kidney Diverticulosis Nonrheumatic aortic valve stenosis Calcification of abdominal aorta ([facility]) Missed vaccination due to patient refusal Tobacco abuse Alcohol use disorder in remission Atrial flutter, unspecified type (HCC) RSV (acute bronchiolitis due to respiratory syncytial virus) Aortic stenosis Upper GI bleed S/P AVR Acute hypoxic respiratory failure ([facility]) Acute encephalopathy Pneumoperitoneum Gastric ulceration Severe malnutrition (CMS/HCC) (HCC) Pleural effusion Peritonitis due to fungus (HCC) History of abdominal surgery Leg DVT (deep venous thromboembolism), acute, left ([facility]) Ischemic ulcer of toe of left foot, 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) Tracheostomy dependence ([facility]) Leukocytosis Decubitus ulcer of sacral region, unstageable (HCC) Pneumonia of both lungs due to methicillin susceptible Staphylococcus aureus (MSSA) ([facility]) Sacral osteomyelitis ([facility]) ([facility]) Acute respiratory failure with hypoxia ([facility]) [J96.01] Tracheostomy care ([facility]) [Z43.0] Pulmonary embolism ([facility]) long term care pharmacist (current) use of antibiotics Complication of tracheostomy ([facility]) ([facility]) BRBPR (bright red blood per rectum) I have personally performed a face to face diagnostic evaluation on this patient. I have reviewed and agree with the care plan as documented above by my PASSENGER FLAGMAN/PA-C. I personally discussed the review of systems [...] []SW/TCC []Other Total Care Time (combined between PASSENGER FLAGMAN/PA-C and myself) throughout the day today was >= 35 minutes (including chart/data review/analysis, care coordination, and [id number] encounter), and was spent discussing/counseling the patient/family regarding the care plan for this patient. I examined the patient independently. I reviewed relevant data myself and may have also done so in the context of team rounds. A full chart review was performed. Ivett Buckley MD Division of Trauma Department of Surgery [facility] Images from the original note were not [...] sodium chloride 0.9 % 100 mL IVPB (Add-[place]), 3,000 mg, IntraVENous, q12h, Steve Lassiter MD, [...] % infusion, 250 mL/hr, IntraVENous, PRN, Nils Boyle DO OBJECTIVE VITALS: BP 127/71 Pulse 92 [...] 59 year old male who presented to [facility] 01/19 after inadvertent removal of his tracheostomy. He was transferred to [facility] ICU for surgical evaluation. On arrival [...] Normal [] Scar/Lesion/Mass Inspection of teeth/lips/gums Dentition: []Ute Teeth []Dentures Lips/Gums: []Intact []Lesion Present Mucosa: []Yoder []Moist []Dry Neck: External Appearance Overall Appearance: [...] 18.5* ABGs: No results for input(s): "PHART", "GGH8HBS", "PO2ART", "DTU3VKF", "SO2ART", "K5XZMWJS" in the last 72 hours. Lactic Acid: [...] setting of GI bleed Disposition: Transfer to [facility] Cosigned by Darryn Higgins MD at [...] Pulmonary and Critical Care Medicine Attending Pager #[phone] [facility] Respiratory Care Department Progress Note As [...] care of this patient, [facility] Progress Note Mr. Jun Snyder is [...] Nicole MD 01/22/2025 3:30 PM [facility] [address], [address] [place] [address] Office: [phone] Images from the original note were not included. [facility] - Infectious Diseases Advanced Practice [...] in this interval not displayed. Micro: Previous ([facility]) 01/02- sacral wound cx- E faecalis [...] debrided to bone on 01/02 at [facility] (Cx with E faecalis and Clostridium). Sacral [...] be of moderate complexity. Mikala MORAN PA-C [facility] Infectious Disease Speech-Language Pathology Spoke with the RN. Patient remains decanulated and doing well on Room Air. Patient is currently NPO for GI. Will defer dysphagia plan of care until patient is cleared to resume TF or a PO diet. Christina Limon MS, CCC/STAVE INSPECTOR Images from the original note were not [...] sodium chloride 0.9 % 100 mL IVPB (Add-[place]), 3,000 mg, IntraVENous, q12h, Steve Lassiter MD, [...] Steve Lassiter MD, 5 mg at 01/21/25 3051 prochlorperazine (Compazine) injection 5 mg, 5 mg, [...] ADMIT DATE: 01/19/2025 TODAY'S DATE: 01/22/2025 HPI: Jnu Snyder is a 59 y.o. male with [...] Intake/Output Summary (Last 24 hours) at 01/22/2025 0749 Last data filed at 01/22/2025 0537 Gross [...] (CMS/HCC) (HCC) Acute respiratory failure with hypoxia ([facility]) [J96.01] Tracheostomy care ([facility]) [Z43.0] Pulmonary embolism ([facility]) long term care pharmacist (current) use of antibiotics Complication of tracheostomy (CMS/HCC) ([facility]) I personally supervised the resident in the [...] of Trauma Department of Surgery [facility] ICU Progress Note Name: Jun Snyder : 1965(59 y.o.) Date: 01/22/25 Team: MICU Attending: Dr. Higgins Subjective: Hospital Summary: Mr Snyder is a 59 year old male who presented to [facility] 01/19 after inadvertent removal of his tracheostomy. He was transferred to [facility] ICU for surgical evaluation. On arrival [...] Normal [] Scar/Lesion/Mass Inspection of teeth/lips/gums Dentition: []Ute Teeth []Dentures Lips/Gums: []Intact []Lesion Present Mucosa: [x]Yoder []Moist [x]Dry Neck: External Appearance Overall Appearance: [...] 18.6* ABGs: No results for input(s): "PHART", "MLH1BMN", "PO2ART", "NTJ9JDM", "SO2ART", "X9CTSOPX" in the last 72 hours. Lactic Acid: [...] Pulmonary and Critical Care Medicine Attending Pager #[phone] [facility] Progress Note SUBJECTIVE: Jun [...] sodium chloride 0.9 % 100 mL IVPB (Add-[place]), 3,000 mg, IntraVENous, q12h, Steve Lassiter MD, Stopped at 01/21/25 0441 collagenase 250 UNIT/GM ointment, , Topical, PRN, tSeve Lassiter MD, Given at 01/21/25 1339 collagenase [...] Problem List Diagnosis Date Noted Severe malnutrition ([facility]) ([facility]) 01/19/2025 Complication of tracheostomy ([facility]) ([facility]) 01/19/2025 [facility] (current) use of antibiotics 01/12/2025 Acute respiratory failure with hypoxia ([facility]) [J96.01] 01/08/2025 Tracheostomy care ([facility]) [Z43.0] 01/08/2025 Pulmonary embolism ([facility]) 01/08/2025 Sacral osteomyelitis ([facility]) ([facility]) 01/03/2025 Pneumonia of both lungs due to methicillin susceptible Staphylococcus aureus (MSSA) ([facility]) 01/01/2025 Leukocytosis 12/30/2024 Decubitus ulcer of sacral region, unstageable ([facility]) 12/30/2024 Peritonitis due to fungus ([facility]) 11/30/2024 History of abdominal surgery 11/30/2024 Leg DVT (deep venous thromboembolism), acute, left ([facility]) 11/30/2024 Ischemic ulcer of toe of left foot, limited to breakdown of skin ([facility]) 11/30/2024 Tracheostomy dependence ([facility]) 11/30/2024 Pleural effusion 11/28/2024 Gastric ulceration 2024 Atrial flutter, unspecified type ([facility]) 10/03/2024 RSV (acute bronchiolitis due to respiratory syncytial virus) 10/03/2024 Diverticulosis 10/08/2023 Nonrheumatic aortic valve stenosis 10/08/2023 Calcification of abdominal aorta ([facility]) 10/08/2023 Missed vaccination due to patient refusal 10/08/2023 Tobacco abuse 10/08/2023 Alcohol use disorder in remission 10/08/2023 Paroxysmal A-fib ([facility]) ([facility]) 08/18/2023 HTN (hypertension) 12/01/2022 ESRD on hemodialysis ([facility]) ([facility]) 10/26/2019 IgA nephropathy determined by biopsy of kidney 10/26/2019 Aortic stenosis 10/03/2024 Upper GI bleed 10/03/2024 S/P AVR 10/03/2024 Acute hypoxic respiratory failure ([facility]) 10/03/2024 Acute encephalopathy 10/03/2024 Pneumoperitoneum 10/03/2024 Anemia 12/30/2021 ASSESSMENT/PLAN: ESRD. HD MWF schedule Anemia. PRBC if Hb less than 7 GI bleed. Gastroenterology following Cindy Patel MD 01/21/2025 4:54 PM Family Communication Number Called: [phone] Name of Designated Family House Carpenter: Omar son I spoke with the individual listed above Family House Carpenter Updated on the Following: - Updated Omar [...] sodium chloride 0.9 % 100 mL IVPB (Add-[place]), 3,000 mg, IntraVENous, q12h, Steve Lassiter MD, [...] 1 mg, 1 mg, IntraMUSCular, PRN, Minor Clolier MD glucose oral gel 15 g, 15 [...] Coumadin, last dose suspected 01/18/25 at [facility] Acute Right occipital ICH- 10/22/24 ESRD [...] proceed with planned procedure. Parth VASQUEZ Gastroenterology [facility] Progress Note SUBJECTIVE: Jun [...] sodium chloride 0.9 % 100 mL IVPB (Add-[place]), 3,000 mg, IntraVENous, q12h, Steve Lassiter MD, [...] Problem List Diagnosis Date Noted Severe malnutrition ([facility]) ([facility]) 01/19/2025 Complication of tracheostomy ([facility]) ([facility]) 01/19/2025 [facility] (current) use of antibiotics 01/12/2025 Acute respiratory failure with hypoxia ([facility]) [J96.01] 01/08/2025 Tracheostomy care ([facility]) [Z43.0] 01/08/2025 Pulmonary embolism ([facility]) 01/08/2025 Sacral osteomyelitis ([facility]) ([facility]) 01/03/2025 Pneumonia of both lungs due to methicillin susceptible Staphylococcus aureus (MSSA) ([facility]) 01/01/2025 Leukocytosis 12/30/2024 Decubitus ulcer of sacral region, unstageable ([facility]) 12/30/2024 Peritonitis due to fungus ([facility]) 11/30/2024 History of abdominal surgery 11/30/2024 Leg DVT (deep venous thromboembolism), acute, left ([facility]) 11/30/2024 Ischemic ulcer of toe of left foot, limited to breakdown of skin ([facility]) 11/30/2024 Tracheostomy dependence ([facility]) 11/30/2024 Pleural effusion 11/28/2024 Gastric ulceration 2024 Atrial flutter, unspecified type ([facility]) 10/03/2024 RSV (acute bronchiolitis due to respiratory syncytial virus) 10/03/2024 Diverticulosis 10/08/2023 Nonrheumatic aortic valve stenosis 10/08/2023 Calcification of abdominal aorta ([facility]) 10/08/2023 Missed vaccination due to patient refusal 10/08/2023 Tobacco abuse 10/08/2023 Alcohol use disorder in remission 10/08/2023 Paroxysmal A-fib ([facility]) ([facility]) 08/18/2023 HTN (hypertension) 12/01/2022 ESRD on hemodialysis ([facility]) ([facility]) 10/26/2019 IgA nephropathy determined by biopsy of [...] were not included. OCCUPATIONAL THERAPY [facility] Initial Evaluation Name/MRN: Jair Snyder ([id number]) Evaluation Date: 01/20/2025 Date of : 1965 Admission Date: 01/19/2025 2:13 AM Age: 59 y.o. Room/Bed: [facility] A Discharge Recommendation: Intermediate Facility Other: DME TBD Assessment IMPRESSION: Pt [...] discharge. Admitting Diagnosis: Complication of tracheostomy (CMS/HCC) ([facility]) Performance Deficits /Impairments: Decreased Functional Mobility, Decreased [...] 10/19/2019 Anemia 12/30/2021 Calcification of abdominal aorta ([facility]) 10/08/202309/[address] abd Diverticulosis 10/08/2023 ESRD on hemodialysis ([facility]) ([facility]) 10/26/2019 Hemodialysis patient ([facility]) ([facility]) HTN (hypertension) 12/01/2022 Hypertension IgA nephropathy IgA nephropathy determined by biopsy of kidney 10/26/2019 Missed vaccination due to patient refusal 10/08/2023 Has a number of non-scientific based beliefs which interfere with his understanding and acceptance of the medical benefit of vaccination. Nonrheumatic aortic valve stenosis 10/08/2023 Paroxysmal A-fib ([facility]) ([facility]) 08/18/2023 Tobacco abuse 10/08/2023 Past Surgical History: Past Surgical History: Procedure Laterality Date APPENDECTOMY CARDIAC CATHETERIZATION N/A 10/09/2024 Performed by Bob Watson MD at [facility] Cardiac Cath/EP Lab CARDIAC CATHETERIZATION Bilateral 11/01/2024 Performed by Bob Watson MD at [facility] Cardiac Cath/EP Lab CARDIAC CATHETERIZATION N/A 11/01/2024 Performed by Bob Watson MD at [facility] Cardiac Cath/EP Lab FISTULAGRAM (HISTORICAL) Left 09/15/2021 LEFT UPPER ARM HX AV FISTULA CREATION IR EMBOLIZATION 10/14/2024 IR EMBOLIZATION 10/14/2024 [facility] SPECIAL PROCEDURES IR FISTULAGRAM 08/07/2022 IR FISTULAGRAM 08/07/2022 [facility] IR IMAGING TONSILLECTOMY (HISTORICAL) Admission Diagnosis: Patient Active Problem List Diagnosis Date Noted Severe malnutrition ([facility]) ([facility]) 01/19/2025 Complication of tracheostomy ([facility] ([facility]) 01/19/2025 long term care pharmacist (current) use of antibiotics 01/12/2025 Acute respiratory failure with hypoxia ([facility]) [J96.01] 01/08/2025 Tracheostomy care ([facility]) [Z43.0] 01/08/2025 Pulmonary embolism ([facility]) 01/08/2025 Sacral osteomyelitis ([facility]) ([facility]) 01/03/2025 Pneumonia of both lungs due to methicillin susceptible Staphylococcus aureus (MSSA) ([facility]) 01/01/2025 Leukocytosis 12/30/2024 Decubitus ulcer of sacral region, unstageable ([facility]) 12/30/2024 Peritonitis due to fungus ([facility]) 11/30/2024 History of abdominal surgery 11/30/2024 Leg DVT (deep venous thromboembolism), acute, left ([facility]) 11/30/2024 Ischemic ulcer of toe of left foot, limited to breakdown of skin ([facility]) 11/30/2024 Tracheostomy dependence ([facility]) 11/30/2024 Pleural effusion 11/28/2024 Gastric ulceration 2024 Atrial flutter, unspecified type ([facility]) 10/03/2024 RSV (acute bronchiolitis due to respiratory syncytial virus) 10/03/2024 Diverticulosis 10/08/2023 Nonrheumatic aortic valve stenosis 10/08/2023 Calcification of abdominal aorta ([facility]) 10/08/2023 Missed vaccination due to patient refusal 10/08/2023 Tobacco abuse 10/08/2023 Alcohol use disorder in remission 10/08/2023 Paroxysmal A-fib ([facility]) ([facility]) 08/18/2023 HTN (hypertension) 12/01/2022 ESRD on hemodialysis ([facility]) ([facility]) 10/26/2019 IgA nephropathy determined by biopsy of kidney 10/26/2019 Aortic stenosis 10/03/2024 Upper GI bleed 10/03/2024 S/P AVR 10/03/2024 Acute hypoxic respiratory failure ([facility]) 10/03/2024 Acute encephalopathy 10/03/2024 Pneumoperitoneum 10/03/2024 Anemia [...] events, decreased short term memory, and decreased long term care pharmacist memory - Safety judgement: decreased awareness of [...] historian. Per pt he came from [facility]. Pt unable to recall living situation prior to [facility], states "I've been in and out of [...] of Care supervision is transferred to a [facility] Therapy Services Occupational Therapist. Goals and/or [...] IgA nephropathy, severe that presented to [facility] ED from a facility due to trach dislodgement. Per patient, was trying to disconnect his vent to transfer to another room but accidentally pulled out his tracheostomy. This event happened approximately 45 minutes before ED arrival. ED attempted to place tracheostomy tube back but were unsuccessful. Decision was made to transfer patient to [facility] ICU for further airway management and determine if replacement tracheostomy is needed. Was observed at [facility] ICU initially and transferred to [facility] on 01/20. Noted removal of trach. [...] History: Diagnosis Date Acute renal failure (ARF) ([facility]) 10/19/2019 Anemia 12/30/2021 Calcification of abdominal aorta ([facility]) 10/08/202309/[address] abd Diverticulosis 10/08/2023 ESRD on hemodialysis ([facility]) ([facility]) 10/26/2019 Hemodialysis patient ([facility]) ([facility]) HTN (hypertension) 12/01/2022 Hypertension IgA nephropathy IgA nephropathy determined by biopsy of kidney 10/26/2019 Missed vaccination due to patient refusal 10/08/2023 Has a number of non-scientific based beliefs which interfere with his understanding and acceptance of the medical benefit of vaccination. Nonrheumatic aortic valve stenosis 10/08/2023 Paroxysmal A-fib ([facility]) ([facility]) 08/18/2023 Tobacco abuse 10/08/2023 LABS: CBC: Recent [...] and limit nighttime disturbances - DVT prophylaxis: [facility] 02-01-2025 Hospital course Narrative Discharge [...] 59 y.o. male who who presented to [facility] 01/19 after inadvertent removal of his tracheostomy. He was transferred to [facility] ICU for surgical evaluation. On arrival [...] HD successfully. hemodynamically stable. Transferred out to [facility] 01/27 ID following for sacral osteomyelitis, s/p wound debridement to bone on 01/02, cultures grew E faecalis and Clostridium, continue with renally dosed ampicillin sulbactam for 6 weeks course through 02/13/2025, needs tunneled line, status post IR CVC tunneled line on 01/29 Nephrology following, on dialysis STAVE INSPECTOR following PT/OT recommends SNF Patient will be [...] History: Diagnosis Date Acute renal failure (ARF) ([facility]) 10/19/2019 Anemia 12/30/2021 Calcification of abdominal aorta ([facility]) 10/08/202309/[address] abd Diverticulosis 10/08/2023 ESRD on hemodialysis ([facility]) ([facility]) 10/26/2019 Hemodialysis patient ([facility]) ([facility]) HTN (hypertension) 12/01/2022 Hypertension IgA nephropathy IgA nephropathy determined by biopsy of kidney 10/26/2019 Missed vaccination due to patient refusal 10/08/2023 Has a number of non-scientific based beliefs which interfere with his understanding and acceptance of the medical benefit of vaccination. Nonrheumatic aortic valve stenosis 10/08/2023 Paroxysmal A-fib ([facility] ([facility]) 08/18/2023 Tobacco abuse 10/08/2023 Adult diet Dysphagia [...] by ID -S/p tunneled central line placement -STAVE INSPECTOR follow, dysphagia diet -PT OT DC recommend SNF SIGNIFICANT DIAGNOSTIC STUDIES: IR cvc tunneled central line placement [[id number]] Collected: 01/30/251436 Order Status: Completed Updated: 01/30/251438 Narrative: [facility] 1965 [id number] Exam Date/Time: 01/30/2025 14:00 Procedure: IR CVC [...] FL modified barium with video and speech [[id number]] Collected: 01/25/25 1328 Order Status: Completed Updated: 01/25/25 1513 Narrative: Patient Name[facility]UN SNYDER [facility] 1965 [id number] Exam Date/Time: 01/25/2025 11:42 Procedure: FL MODIFIED [...] 3:12 PM EDT XR chest 1 view [[id number]] Collected: 01/24/25 0158 Order Status: Completed Updated: [...] pelvis angiogram w and/or wo IV contrast [[id number]] Collected: 01/20/25 1849 Order Status: Completed Updated: [...] 7:02 PM EDT XR chest 1 view [[id number]] Collected: 01/19/25614 Order Status: Completed Updated: 01/19/25616 [...] 6:16 AM EDT XR chest 1 view [[id number]] Collected: 01/18/25 1242 Order Status: Completed Updated: [...] days. CONTINUE taking these medications epoetin rowan-epbx 30313 UNIT/ML injection Commonly known as: Retacrit Inject [...] Complexity: follow up within 7-14 calendar days (67902) [] Severe Complexity: follow up within 7 calendar days (85852) FOLLOW UP TESTING, PENDING RESULTS OR REFERRALS AT TRANSITIONAL CARE VISIT: [] Yes [] No PENDING STUDIES: DISPOSITION: Skilled Facility FACILITY/HOME CARE AGENCY NAME: Follow up with [facility] [address] [place] [id number] Gurdeep Cruz MD [address] [place] [address] [address] [facility] [id number] Schedule an appointment as [...] 02/01/2025, 10:29 AM documented in this encounter [facility] 01-29-2025 Telephone encount er Note Chart reviewed, patient appears to be sensitive to warfarin at this time and I wouldn't be able to guarantee INR remains less than 3, so opted to hold dose today. I canceled order. [facility] [facility] Work Phone: 01-29-2025 Miscellaneous Notes Formattin g of this note might be different from the original. Chart reviewed, patient appears to be sensitive to warfarin at this time and I wouldn't be able to guarantee INR remains less than 3, so opted to hold dose today. I canceled order. SWEETIE Singh with [facility] called to inform [facility] patient is scheduled to have a tunnel cath line tomorrow and Dr. Lira is inquiring if patient should hold his warfarin 0.[address] Lira does not want INR to go above to 3.0 tomorrow. Staffed with Natali Richter, PERI, CACP, she will cancel patient's warfarin dose tomorrow and SAILAJA will make adjustments as needed tomorrow. documented in this encounter [facility] 01-29-2025 Telephone encount er Note SWEETIE Singh with [facility] called to inform [facility] patient is scheduled to have a tunnel cath line tomorrow and Dr. Lira is inquiring if patient should hold his warfarin 0.[address] Lira does not want INR to go above to 3.0 tomorrow. Staffed with Natali Richter, FABIOCP, CACP, she will cancel patient's warfarin dose tomorrow and SAILAJA will make adjustments as needed tomorrow. [facility] 01-26-2025 Hospital Discharg e instructions Kristine Donato [...] Performed by Bob Watson MD at [facility] Cardiac Cath/EP Lab CARDIAC CATHETERIZATION Bilateral 11/01/2024 Performed by Bob Watson MD at [facility] Cardiac Cath/EP Lab CARDIAC CATHETERIZATION N/A 11/01/2024 Performed by Bob Watson MD at [facility] Cardiac Cath/EP Lab COLONOSCOPY N/A 01/24/2025 Performed by Chadd Davis MD at [facility] ENDOSCOPY FISTULAGRAM (HISTORICAL) Left 09/15/2021 LEFT UPPER ARM HX AV FISTULA CREATION IR EMBOLIZATION 10/14/2024 IR EMBOLIZATION 10/14/2024 [facility] SPECIAL PROCEDURES IR FISTULAGRAM 08/07/2022 IR FISTULAGRAM 08/07/2022 [facility] IR IMAGING TONSILLECTOMY (HISTORICAL) Immunization History: Immunization [...] (CMS/HCC) (HCC) Acute respiratory failure with hypoxia ([facility]) [J96.01] Tracheostomy care ([facility]) [Z43.0] Pulmonary embolism ([facility]) long term care pharmacist (current) use of antibiotics Anemia Aortic stenosis Upper GI bleed S/P AVR Acute hypoxic respiratory failure ([facility]) Acute encephalopathy Pneumoperitoneum BRBPR (bright red blood [...] Total assistance Toileting Total assistance Feeding Independent Inside Sales Advisor Independent Med Delivery yes Wound Care Documentation and Therapy: Wound/Incision 11/13/24 Pressure Injury Sacrum (Active) Wound Image 01/19/25 0500 Site Assessment Yoder;Red 01/26/25 1200 Mahnaz-Wound Assessment Intact 01/26/25 0355 [...] Date: 01/21/25 Discharging to Facility/ Agency Name: [facility] Address: [address] [place] [address] Fax: Dialysis Facility (if applicable) Name: Address: Dialysis Schedule: [facility] Phone: Fax: Caustic Room Operator/Grey Goods Tester signature: ICIAN SECTION Name: Jun Snyder Prognosis: fair Condition at Discharge: stable Rehab Potential (if transferring to Rehab): fair Recommended Labs or Other Treatments After Discharge: cbc,cmp, PT/INR for warfarin, C/W Ampicillin-Sulbactam till 02/13, F/U with ID The individual is being admitted to a nursing facility directly from an [facility] or a unit of a [facility] that is not operated by or licensed by [facility] under section 5119.14 or 5160-3-15.1 5 The [...] H&P PHYSICIAN SIGNATURE: documented in this encounter [facility] 01-24-2025 Procedure note Images from the original [...] Safety: The patient was placed on a excel analyst and vital signs, pulse oximetry, and level [...] of the procedure. documented in this encounter [facility] 01-23-2025 Consult note Associated Order (s): INPATIENT CONSULT TO WOUND CARE PROVIDERS Images from the original note were not included. [facility] Wound Care Re-CONSULT Note Jun [...] IgA nephropathy, severe that presented to [facility] ED from a facility due to trach [...] History: Diagnosis Date Acute renal failure (ARF) ([facility]) 10/19/2019 Anemia 12/30/2021 Calcification of abdominal aorta ([facility]) 10/08/202309/[address] abd Diverticulosis 10/08/2023 ESRD on hemodialysis ([facility]) ([facility]) 10/26/2019 Hemodialysis patient ([facility]) ([facility]) HTN (hypertension) 12/01/2022 Hypertension IgA nephropathy IgA nephropathy determined by biopsy of kidney 10/26/2019 Missed vaccination due to patient refusal 10/08/2023 Has a number of non-scientific based beliefs which interfere with his understanding and acceptance of the medical benefit of vaccination. Nonrheumatic aortic valve stenosis 10/08/2023 Paroxysmal A-fib ([facility]) ([facility]) 08/18/2023 Tobacco abuse 10/08/2023 PAST SURGICAL HISTORY Past Surgical History: Procedure Laterality Date APPENDECTOMY CARDIAC CATHETERIZATION N/A 10/09/2024 Performed by Bob Watson MD at [facility] Cardiac Cath/EP Lab CARDIAC CATHETERIZATION Bilateral 11/01/2024 Performed by Bob Watson MD at [facility] Cardiac Cath/EP Lab CARDIAC CATHETERIZATION N/A 11/01/2024 Performed by Bob Watson MD at [facility] Cardiac Cath/EP Lab FISTULAGRAM (HISTORICAL) Left 09/15/2021 LEFT UPPER ARM HX AV FISTULA CREATION IR EMBOLIZATION 10/14/2024 IR EMBOLIZATION 10/14/2024 [facility] SPECIAL PROCEDURES IR FISTULAGRAM 08/07/2022 IR FISTULAGRAM 08/07/2022 [facility] IR IMAGING TONSILLECTOMY (HISTORICAL) FAMILY HISTORY Family [...] Medication Sig Dispense Refill epoetin rowan-epbx (Retacrit) 91384 UNIT/ML injection Inject 0.79 mL (7,900 Units) [...] apply Betadine and allow to dry, leave SUPERVISOR SHIPFITTERS daily and PRN -Recommend PVRs for circulation check Nutritional support Wound Care to follow Recommend to follow up at [facility] Outpatient wound care center after hospital [...] Gill DO at 01/29/2025 4:37 PM EDT [facility] Anticoagulation Management Service (SAILAJA) Inpatient Warfarin Consult HPI: Jun Snyder is a 59 y.o. male admitted on 01/19/2025 for Complication of tracheostomy (CMS/HCC) ([facility]) [J95.00] Past Medical History: Diagnosis Date Acute renal failure (ARF) (HCC) 10/19/2019 Anemia 12/30/2021 Calcification of abdominal aorta (HCC) 10/08/202309/[address] abd Diverticulosis 10/08/2023 ESRD on hemodialysis (CMS/HCC) ([facility]) 10/26/2019 Hemodialysis patient ([facility]) ([facility]) HTN (hypertension) 12/01/2022 Hypertension IgA nephropathy IgA nephropathy determined by biopsy of kidney 10/26/2019 Missed vaccination due to patient refusal 10/08/2023 Has a number of non-scientific based beliefs which interfere with his understanding and acceptance of the medical benefit of vaccination. Nonrheumatic aortic valve stenosis 10/08/2023 Paroxysmal A-fib ([facility]) ([facility]) 08/18/2023 Tobacco abuse 10/08/2023 Patient is on [...] and plan for colonoscopy tomorrow, please notify [facility] when able to resume anticoagulation. 2. Monitor for s/s of bleeding and drug interactions. Will adjust dose accordingly 3. Will facilitate f/u at [facility] upon discharge Fatuma Odonnell RPh, PharmD [facility] is available daily [phone] via [employer] Chat. If no response on [employer] then please page [phone]. Images from the original note were not [...] AV replacement Supratherapeutic INR - [facility] 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 valve in 09/2024 - coumadin held due [...] Palliative Care IDT members involved: Palliative Care Grey Goods Tester Discussed the plan of care with the other interdisciplinary team (IDT) members of the Palliative Care and Hospice teams and Patient. Tex Cotto MD Subjective: Subjective/Events Mr. Jun Synder is a 59 year old male with [...] to have bile peritonitis" 11/28/24: transferred to [facility] He ended up developing sacral ulcer and osteomyelitis at [facility]. He then ended up dislodging his tracheostomy, and was brought to [facility] ED for further care. Palliative care [...] last several months, with being in [facility] and now back into the hospital. I [...] child(rocky) Living status: SNF Work history: unknown [place] status: unknown Confucianism annette: Non-Scientologist ROS: See palliative care ROS/ESAS below; All other systems were reviewed and are negative. Purchase Symptom Assessment Score Purchase Score Pain Score (if non-verbal, add .FLACC [...] History: Diagnosis Date Acute renal failure (ARF) ([facility]) 10/19/2019 Anemia 12/30/2021 Calcification of abdominal aorta ([facility]) 10/08/202309/[address] abd Diverticulosis 10/08/2023 ESRD on hemodialysis ([facility]) ([facility]) 10/26/2019 Hemodialysis patient ([facility]) ([facility]) HTN (hypertension) 12/01/2022 Hypertension IgA nephropathy IgA nephropathy determined by biopsy of kidney 10/26/2019 Missed vaccination due to patient refusal 10/08/2023 Has a number of non-scientific based beliefs which interfere with his understanding and acceptance of the medical benefit of vaccination. Nonrheumatic aortic valve stenosis 10/08/2023 Paroxysmal A-fib ([facility] ([facility]) 08/18/2023 Tobacco abuse 10/08/2023 Past Surgical History: Procedure Laterality Date APPENDECTOMY CARDIAC CATHETERIZATION N/A 10/09/2024 Performed by Bob Watson MD at [facility] Cardiac Cath/EP Lab CARDIAC CATHETERIZATION Bilateral 11/01/2024 Performed by Bob Watson MD at [facility] Cardiac Cath/EP Lab CARDIAC CATHETERIZATION N/A 11/01/2024 Performed by Bob Watson MD at [facility] Cardiac Cath/EP Lab FISTULAGRAM (HISTORICAL) Left [...] Transition Note Initiated: yes Tex Cotto MD [facility] Anticoagulation Management Service (SAILAJA) Inpatient Warfarin Consult HPI: Jun Snyder is a 59 y.o. male admitted on 01/19/2025 for Complication of tracheostomy (CMS/HCC) ([facility]) [J95.00] Past Medical History: Diagnosis Date Acute renal failure (ARF) ([facility]) 10/19/2019 Anemia 12/30/2021 Calcification of abdominal aorta (HCC) 10/08/202309/[address] abd Diverticulosis 10/08/2023 ESRD on hemodialysis ([facility]) ([facility]) 10/26/2019 Hemodialysis patient ([facility]) ([facility]) HTN (hypertension) 12/01/2022 Hypertension IgA nephropathy IgA nephropathy determined by biopsy of kidney 10/26/2019 Missed vaccination due to patient refusal 10/08/2023 Has a number of non-scientific based beliefs which interfere with his understanding and acceptance of the medical benefit of vaccination. Nonrheumatic aortic valve stenosis 10/08/2023 Paroxysmal A-fib ([facility]) ([facility]) 08/18/2023 Tobacco abuse 10/08/2023 Patient is on [...] possible GIB and elevated INR, please notify [facility] [facility] when able to resume [facility]. 2. Monitor for s/s of bleeding and drug interactions. Will adjust dose accordingly 3. Will facilitate f/u at [facility] upon discharge Fatuma Odonnell RPh, PharmD [facility] is available daily [phone] via [employer]. If no response on [employer] Chat then please page [phone]. [facility] Anticoagulation Management Service ([facility]) Inpatient Warfarin Consult HPI: Jun Snyder is a 59 y.o. male admitted on 01/19/2025 for Complication of tracheostomy ([facility]) ([facility]) [J95.00] Past Medical History: Diagnosis Date Acute renal failure (ARF) ([facility]) 10/19/2019 Anemia 12/30/2021 Calcification of abdominal aorta ([facility]) 10/08/202309/[address] abd Diverticulosis 10/08/2023 ESRD on hemodialysis ([facility]) ([facility]) 10/26/2019 Hemodialysis patient ([facility]) ([facility]) HTN (hypertension) 12/01/2022 Hypertension IgA nephropathy IgA nephropathy determined by biopsy of kidney 10/26/2019 Missed vaccination due to patient refusal 10/08/2023 Has a number of non-scientific based beliefs which interfere with his understanding and acceptance of the medical benefit of vaccination. Nonrheumatic aortic valve stenosis 10/08/2023 Paroxysmal A-fib ([facility]) ([facility]) 08/18/2023 Tobacco abuse 10/08/2023 Patient is on warfarin for Afib, mechanical AVR and has a goal INR 2.0 - 3.0. Warfarin is currently managed by facility, has yet to be seen by [facility]. Pt's home dose of warfarin is [...] admission. Holding warfarin for GIB, please notify [facility] when able to resume anticoagulation. 2. Monitor for s/s of bleeding and drug interactions. Will adjust dose accordingly 3. Will facilitate f/u at [facility] upon discharge Darryn Wagner RPh, PharmD [facility] is available daily [phone] via [employer]. If no response on [employer] Chat then please page [phone]. Associated Order(s): IP CONSULT TO GENERAL SURGERY [...] History: Diagnosis Date Acute renal failure (ARF) ([facility]) 10/19/2019 Anemia 12/30/2021 Calcification of abdominal aorta ([facility]) 10/08/202309/[address] abd Diverticulosis 10/08/2023 ESRD on hemodialysis ([facility] ([facility]) 10/26/2019 Hemodialysis patient ([facility]) ([facility]) HTN (hypertension) 12/01/2022 Hypertension IgA nephropathy IgA nephropathy determined by biopsy of kidney 10/26/2019 Missed vaccination due to patient refusal 10/08/2023 Has a number of non-scientific based beliefs which interfere with his understanding and acceptance of the medical benefit of vaccination. Nonrheumatic aortic valve stenosis 10/08/2023 Paroxysmal A-fib ([facility]) ([facility]) 08/18/2023 Tobacco abuse 10/08/2023 Past Surgical History: Procedure Laterality Date APPENDECTOMY CARDIAC CATHETERIZATION N/A 10/09/2024 Performed by Bob Watson MD at [facility] Cardiac Cath/EP Lab CARDIAC CATHETERIZATION Bilateral 11/01/2024 Performed by Bob Watson MD at [facility] Cardiac Cath/EP Lab CARDIAC CATHETERIZATION N/A 11/01/2024 Performed by Bob Watson MD at [facility] Cardiac Cath/EP Lab FISTULAGRAM (HISTORICAL) Left 09/15/2021 LEFT UPPER ARM HX AV FISTULA CREATION IR EMBOLIZATION 10/14/2024 IR EMBOLIZATION 10/14/2024 [facility] SPECIAL PROCEDURES IR FISTULAGRAM 08/07/2022 IR FISTULAGRAM 08/07/2022 SB IR IMAGING TONSILLECTOMY (HISTORICAL) Medications Prior to Admission: Current Facility-Administered Medications Medication Dose Route Frequency Provider Last Rate Last Admin acetaminophen (Tylenol) tablet 1,000 mg 1,000 mg Oral q8h PRN Steve Lassiter MD 1,000 mg at 01/19/25 1540 ampicillin-sulbactam (Unasyn) 3,000 mg in sodium chloride 0.9 % 100 mL IVPB (Add[place]) 3,000 mg IntraVENous q12h Steve Lassiter MD [...] Unable To Answer (12/01/2024) Received from [facility] Overall Financial Resource Strain (CARDIA) Difficulty of Paying Living Expenses: Patient unable to answer Food Insecurity: Patient Unable To Answer (12/01/2024) Received from [facility] Hunger Vital Sign Worried About Running Out of Food in the Last Year: Patient unable to answer Ran Out of Food in the Last Year: Patient unable to answer Transportation Needs: No Transportation Needs (01/18/2025) Received from [facility] SDOH Transportation Source Has lack of transportation kept you from medical appointments or from getting medications?: No Has lack of transportation kept you from meetings, work, or from getting things needed for daily living?: No Stress: No Stress Concern Present (01/18/2025) Received from [facility] [place] [employer] [facility] [employer] - Occupational Stress Questionnaire Feeling of Stress : Not at all Social Connections: Patient Unable To Answer (12/01/2024) Received from [facility] Social Connection and Isolation Panel [NHANES] Frequency of Communication with Friends and Family: Patient unable to answer Frequency of Social Gatherings with Friends and Family: Patient unable to answer Attends Confucianism Services: Patient unable to answer Active Member of Clubs or Organizations: Patient unable to answer Attends Club or Organization Meetings: Patient unable to answer Marital Status: Patient unable to answer Intimate Partner Violence: Patient Unable To Answer (11/28/2024) Received from [facility] Domestic Abuse Assessment Do you feel safe in your relationships at home?: Unable to assess Physical Abuse: Unable to assess Verbal Abuse: Unable to assess Housing Stability: Patient Unable To Answer (12/01/2024) Received from [facility] Housing Stability Vital Sign Unable [...] LIPASE IMAGING: POCT glucose meter Performed by: [facility] [place] [facility], [address] [place] [address], [place] [address] CLIA ID: [id number] POCT glucose meter Performed by: [facility] [place] [facility], [address] [place] [address], [place] [address] CLIA ID: [id number] POCT glucose meter Performed by: [facility] [place] [facility], [address] [place] [address], [place] [address] CLIA ID: [id number] POCT glucose meter Performed by: [facility] [place] [facility], [address] [place] [address], [place] [address] CLIA ID: [id number] POCT glucose meter Performed by: [facility] [place] [facility], [address] [place] [address], [facility] [address] CLIA ID: [id number] POCT glucose meter Performed by: [facility], [address] [place] [address], [facility] [address] CLIA ID: [id number] ASSESSMENT AND PLAN: Jun Snyder is a [...] Brenton Goldstein MD General Surgery PGY-1 Pager #[phone] Cosigned by Tex Brush MD at 01/22/2025 [...] (CMS/HCC) (HCC) Acute respiratory failure with hypoxia ([facility]) [J96.01] Tracheostomy care ([facility]) [Z43.0] Pulmonary embolism ([facility]) MCC (current) use of antibiotics Complication of tracheostomy (CMS/HCC) ([facility]) I personally supervised the resident physician in [...] of Trauma Department of Surgery [facility] Images from the original note were not [...] nephropathy, severe who was admitted to [facility] 01/19 due to trach dislodgement. Since [...] Normal [] Scar/Lesion/Mass Inspection of teeth/lips/gums Dentition: []Ute Teeth []Dentures Lips/Gums: [x]Intact []Lesion Present Mucosa: [x]Yoder []Moist [x]Dry Neck: External Appearance Overall Appearance: [...] Plan: Principal Problem: Complication of tracheostomy (CMS/HCC) ([facility]) Active Problems: Severe malnutrition (CMS/HCC) (HCC) Assessment: [...] 2:43 PM I have personally performed a onhi-is-ptok diagnostic evaluation on this patient on date of service 01/21/2025. History, labs, imaging studies, and electronic medical record have been reviewed by me. This note documented by the [x]visiting housekeeper []ARMIN reflects my history, exam, and medical decision making. I have reviewed and agree with the care plan. Changes were made in the orders as necessary. ROS documentation was reviewed and negative unless otherwise stated in HPI. Additional pertinent interval history, ROS, and physical exam findings: Mr Snyder is a 59 year old male who presented to [facility] 01/19 after inadvertent removal of his tracheostomy. He was transferred to [facility] ICU for surgical evaluation. On arrival [...] maintain >7 -Hold coumadin -Continue protonix bid -POLICY CHANGE CLERK per nephrology, will appreciate recs -Consult general [...] gastrostomy tube placement, who presented to [facility] on 01/19/25 as a transfer from [facility] Per patient, was trying to disconnect his vent to transfer to another room but accidentally pulled out his tracheostomy. This event happened approximately 45 minutes before ED arrival. ED attempted to place tracheostomy tube back but were unsuccessful. Decision was made to transfer patient to [facility] ICU for further airway management and determine if replacement tracheostomy is needed. Patient was admitted to the MICU-01/19 where he was evaluated by general surgery for re-do tracheostomy and determined to be saturating appropriately on room air without need for re-placement. Patient was transferred out of the MICU for potential discharge back to he long term care pharmacist facility. The MICU is consulted now for [...] History: Diagnosis Date Acute renal failure (ARF) ([facility]) 10/19/2019 Anemia 12/30/2021 Calcification of abdominal aorta ([facility]) 10/08/202309/[address] abd Diverticulosis 10/08/2023 ESRD on hemodialysis ([facility]) ([facility]) 10/26/2019 Hemodialysis patient ([facility]) ([facility]) HTN (hypertension) 12/01/2022 Hypertension IgA nephropathy IgA nephropathy determined by biopsy of kidney 10/26/2019 Missed vaccination due to patient refusal 10/08/2023 Has a number of non-scientific based beliefs which interfere with his understanding and acceptance of the medical benefit of vaccination. Nonrheumatic aortic valve stenosis 10/08/2023 Paroxysmal A-fib ([facility]) ([facility]) 08/18/2023 Tobacco abuse 10/08/2023 Past Surgical History: Procedure Laterality Date APPENDECTOMY CARDIAC CATHETERIZATION N/A 10/09/2024 Performed by Bob Watson MD at [facility] Cardiac Cath/EP Lab CARDIAC CATHETERIZATION Bilateral 11/01/2024 Performed by Bob Watson MD at [facility] Cardiac Cath/EP Lab CARDIAC CATHETERIZATION N/A 11/01/2024 Performed by Bob Watson MD at [facility] Cardiac Cath/EP Lab FISTULAGRAM (HISTORICAL) Left 09/15/2021 LEFT UPPER ARM HX AV FISTULA CREATION IR EMBOLIZATION 10/14/2024 IR EMBOLIZATION 10/14/2024 [facility] SPECIAL PROCEDURES IR FISTULAGRAM 08/07/2022 IR FISTULAGRAM 08/07/2022 [facility] IR IMAGING TONSILLECTOMY (HISTORICAL) Family History Problem [...] Patient Unable To Answer (12/01/2024) Received from [facility] Overall Financial Resource Strain (CARDIA) Difficulty of Paying Living Expenses: Patient unable to answer Food Insecurity: Patient Unable To Answer (12/01/2024) Received from [facility] Hunger Vital Sign Worried About Running Out of Food in the Last Year: Patient unable to answer Ran Out of Food in the Last Year: Patient unable to answer Transportation Needs: No Transportation Needs (01/18/2025) Received from [facility] Transportation Source Has lack of transportation kept you from medical appointments or from getting medications?: No Has lack of transportation kept you from meetings, work, or from getting things needed for daily living?: No Physical Activity: Not on file Stress: No Stress Concern Present (01/18/2025) Received from [facility] [place] [employer] - Occupational Stress Questionnaire Feeling of Stress : Not at all Social Connections: Patient Unable To Answer (12/01/2024) Received from [facility] Social Connection and Isolation Panel [NHANES] Frequency of Communication with Friends and Family: Patient unable to answer Frequency of Social Gatherings with Friends and Family: Patient unable to answer Attends Confucianism Services: Patient unable to answer Active Member of Clubs or Organizations: Patient unable to answer Attends Club or Organization Meetings: Patient unable to answer Marital Status: Patient unable to answer Intimate Partner Violence: Patient Unable To Answer (11/28/2024) Received from [facility] Domestic Abuse Assessment Do you feel safe in your relationships at home?: Unable to assess Physical Abuse: Unable to assess [facility] Domestic Abuse - Type of Abuse: Not on file [facility] Domestic Abuse - Time Frame: Not on file [facility] Domestic Abuse - Signs and Symptoms: Not on file Verbal Abuse: Unable to assess HRSN Domestic Abuse - Reported To: Not on file Housing Stability: Patient Unable To Answer (12/01/2024) Received from [facility] Housing Stability Vital Sign Unable to Pay for Housing in the Last Year: Patient unable to answer Number of Times Moved in the Last Year: 0 Homeless in the Last Year: Patient unable to answer Allergies Allergen Reactions Lisinopril Swelling and Angioedema Prior to Admission medications Medication Sig Start Date End Date Taking? Authorizing Provider epoetin rowan-epbx (Retacrit) 48653 UNIT/ML injection Inject 0.79 mL (7,900 Units) [...] Normal [] Scar/Lesion/Mass Inspection of teeth/lips/gums Dentition: []Ute Teeth []Dentures Lips/Gums: [x]Intact []Lesion Present Mucosa: [x]Yoder []Moist []Dry Neck: External Appearance Overall Appearance: [...] -- ABGs: No results for input(s): "PHART", "NVE7OTJ", "PO2ART", "VGZ7TOC", "SO2ART", "E0RXVCQF" in the last 72 hours. Lactic Acid: [...] Plan: Principal Problem: Complication of tracheostomy (CMS/HCC) ([facility]) Active Problems: Severe malnutrition (CMS/HCC) ([facility]) Assessment: Passage of Bright red blood per [...] normal BMI 18.5-24.9 Disposition: Remain on the [facility] Critical Care Time: Total critical care [...] PM EDT I have personally performed a hmed-cx-mwij diagnostic evaluation on this patient on date of service 01/20/25. History, labs, imaging studies, and electronic medical record have been reviewed by me. This note documented by the []visiting housekeeper []ARMIN reflects my history, exam, and medical [...] from the original note were not included. 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 He was transferred to [facility] on 11/28/24. There he was followed by our ID group and had had recurrent MSSA LRTI that was treated. Additionally, his sacral wound was debrided to bone on 01/02/25. Sacral wound Cx + E faecalis and Clostridium clostridioforme. He is to be on a course of Amp-Sulbactam x6 weeks through 02/13/25. He was discharged to SNF on 01/18. Patient presented to [facility] on 01/19 after self-dislodging tracheostomy. He was transferred to [facility] ICU for further airway management and [...] History: Diagnosis Date Acute renal failure (ARF) ([facility]) 10/19/2019 Anemia 12/30/2021 Calcification of abdominal aorta ([facility]) 10/08/202309/[address] abd Diverticulosis 10/08/2023 ESRD on hemodialysis ([facility]) ([facility]) 10/26/2019 Hemodialysis patient ([facility]) ([facility]) HTN (hypertension) 12/01/2022 Hypertension IgA nephropathy IgA nephropathy determined by biopsy of kidney 10/26/2019 Missed vaccination due to patient refusal 10/08/2023 Has a number of non-scientific based beliefs which interfere with his understanding and acceptance of the medical benefit of vaccination. Nonrheumatic aortic valve stenosis 10/08/2023 Paroxysmal A-fib ([facility]) ([facility]) 08/18/2023 Tobacco abuse 10/08/2023 Past Surgical History: Past Surgical History: Procedure Laterality Date APPENDECTOMY CARDIAC CATHETERIZATION N/A 10/09/2024 Performed by Bob Watson MD at [facility] Cardiac Cath/EP Lab CARDIAC CATHETERIZATION Bilateral 11/01/2024 Performed by Bob Watson MD at [facility] Cardiac Cath/EP Lab CARDIAC CATHETERIZATION N/A 11/01/2024 Performed by Bob Watson MD at [facility] Cardiac Cath/EP Lab FISTULAGRAM (HISTORICAL) Left 09/15/2021 LEFT UPPER ARM HX AV FISTULA CREATION IR EMBOLIZATION 10/14/2024 IR EMBOLIZATION 10/14/2024 [facility] SPECIAL PROCEDURES IR FISTULAGRAM 08/07/2022 IR FISTULAGRAM 08/07/2022 [facility] IR IMAGING TONSILLECTOMY (HISTORICAL) Current Medications: Current Facility-Administered Medications Medication Dose Route Frequency Provider Last Rate Last Admin acetaminophen (Tylenol) tablet 1,000 mg 1,000 mg Oral q8h PRN Steve Lassiter MD 1,000 mg at 01/19/25 1540 ampicillin-sulbactam (Unasyn) 3,000 mg in sodium chloride 0.9 % 100 mL IVPB (Add-[place]) 3,000 mg IntraVENous q12h Steve Lassiter MD [...] Patient Unable To Answer (12/01/2024) Received from [facility] Overall Financial Resource Strain (CARDIA) Difficulty of Paying Living Expenses: Patient unable to answer Food Insecurity: Patient Unable To Answer (12/01/2024) Received from [facility] Hunger Vital Sign Worried About Running Out of Food in the Last Year: Patient unable to answer Ran Out of Food in the Last Year: Patient unable to answer Transportation Needs: No Transportation Needs (01/18/2025) Received from [facility] Transportation Source Has lack of transportation kept you from medical appointments or from getting medications?: No Has lack of transportation kept you from meetings, work, or from getting things needed for daily living?: No Physical Activity: Not on file Stress: No Stress Concern Present (01/18/2025) Received from [facility] [place] [employer] - Occupational Stress Questionnaire Feeling of Stress : Not at all Social Connections: Patient Unable To Answer (12/01/2024) Received from [facility] Social Connection and Isolation Panel [NHANES] Frequency of Communication with Friends and Family: Patient unable to answer Frequency of Social Gatherings with Friends and Family: Patient unable to answer Attends Confucianism Services: Patient unable to answer Active Member [...] Abuse: Unable to assess [facility] Domestic Abuse - Type of Abuse: Not on file [facility] Domestic Abuse - Time Frame: Not on file [facility] Domestic Abuse - Signs and Symptoms: Not on file Verbal Abuse: Unable to assess [facility] Domestic Abuse - Reported To: Not [...] NEUTROABS 7.6* 7.5 7.5 -- Micro: Previous ([facility]) 01/02- sacral wound cx- E faecalis (Amp-S), skin ila, Clostridium clostrioforme 01/01- blood cx- 2/2 NG 12/30- blood cx- 2/2 NGTD 12/30- sputum cx- MSSA, resp ila 12/25- blood cx- 2/2 negative 12/14- sputum cx- MSSA, resp ila 12/14- MRSA pcr- MSSA 12/11- sputum cx- MSSA, resp ila Previous ([facility]) 11/28- L pleural fluid- negative 11/16- [...] negative 10/03- blood cx- 2/ negative 10/03- plex- RSV Lines: AVF PIV [...] accounting for open encounter. Mikala MORAN PA-C [facility] Infectious Disease Cosigned by Gurdeep Cruz MD [...] gastrostomy tube placement, who presented to the [place] emergency room from [facility] on 01/[facility]/2025 where he is admitted for IV antibiotics for multiple infected wounds including dry gangrene to the left foot and sacral ulcers. Patient accidentally pulled his tracheostomy and was therefore transferred to the emergency room. Patient transferred to [facility] for higher level of care. GI consult [...] throughout entire last hospitalization. On presentation to [facility] [place] 01/19/2025 hemoglobin was 9.1. This morning dropped to 6.6. No transfusion but repeat hemoglobin 3 hours later at 8.2. Currently getting dialysis. Reports he had a BM 5 minutes ago and he does not know what stools have looked like. He denies abdominal pain. No nausea, vomiting. Per patient girlfriend SNF has been flipping [id number]-[id number] between Coumadin and heparin secondary to patient INR. Assume last dose of Coumadin to be 01/18/2025. History of appendectomy and PEG placement. Allergies: Lisinopril Current Medications: Current Facility-Administered Medications: acetaminophen (Tylenol) tablet 1,000 mg, 1,000 mg, Oral, q8h PRN, Steve Lassiter MD, 1,000 mg at 01/19/25 1540 ampicillin-sulbactam (Unasyn) 3,000 mg in sodium chloride 0.9 % 100 mL IVPB (Add-[place]), 3,000 mg, IntraVENous, q12h, Steve Lassiter MD, [...] Diagnosis Date Noted Anemia 12/30/2021 Paroxysmal A-fib ([facility]) ([facility]) 08/18/2023 HTN (hypertension) 12/01/2022 ESRD on hemodialysis ([facility]) ([facility]) 10/26/2019 IgA nephropathy determined by biopsy of kidney 10/26/2019 Diverticulosis 10/08/2023 Nonrheumatic aortic valve stenosis 10/08/2023 Calcification of abdominal aorta ([facility]) 10/08/2023 Missed vaccination due to patient refusal 10/08/2023 Tobacco abuse 10/08/2023 Alcohol use disorder in remission 10/08/2023 Atrial flutter, unspecified type ([facility]) 10/03/2024 RSV (acute bronchiolitis due to respiratory syncytial virus) 10/03/2024 Aortic stenosis 10/03/2024 Upper GI bleed 10/03/2024 S/P AVR 10/03/2024 Acute hypoxic respiratory failure ([facility]) 10/03/2024 Acute encephalopathy 10/03/2024 Pneumoperitoneum 10/03/2024 Gastric ulceration 2024 Severe malnutrition ([facility]) ([facility]) 01/19/2025 Pleural effusion 11/28/2024 Peritonitis due to fungus ([facility]) 11/30/2024 History of abdominal surgery 11/30/2024 Leg DVT (deep venous thromboembolism), acute, left ([facility]) 11/30/2024 Ischemic ulcer of toe of left foot, limited to breakdown of skin ([facility]) 11/30/2024 Tracheostomy dependence ([facility]) 11/30/2024 Leukocytosis 12/30/2024 Decubitus ulcer of sacral region, unstageable ([facility]) 12/30/2024 Pneumonia of both lungs due to methicillin susceptible Staphylococcus aureus (MSSA) ([facility]) 01/01/2025 Sacral osteomyelitis ([facility]) ([facility]) 01/03/2025 Acute respiratory failure with hypoxia ([facility]) [J96.01] 01/08/2025 Tracheostomy care ([facility]) [Z43.0] 01/08/2025 Pulmonary embolism ([facility]) 01/08/2025 [facility] (current) use of antibiotics 01/12/2025 Resolved Ambulatory Problems Diagnosis Date Noted Acute renal failure (ARF) ([facility]) 10/19/2019 New onset a-fib ([facility]) ([facility]) 08/16/2023 Pulmonary embolism ([facility]) 10/03/2024 Past Medical History: Diagnosis Date Hemodialysis patient ([facility]) ([facility]) Hypertension IgA nephropathy Past Surgical History: Social [...] Unable To Answer (12/01/2024) Received from [facility] Overall Financial Resource Strain (CARDIA) Difficulty of Paying Living Expenses: Patient unable to answer Food Insecurity: Patient Unable To Answer (12/01/2024) Received from [facility] Hunger Vital Sign Worried About Running Out of Food in the Last Year: Patient unable to answer Ran Out of Food in the Last Year: Patient unable to answer Transportation Needs: No Transportation Needs (01/18/2025) Received from [facility] [place] Transportation Source Has lack of transportation kept you from medical appointments or from getting medications?: No Has lack of transportation kept you from meetings, work, or from getting things needed for daily living?: No Physical Activity: Not on file Stress: No Stress Concern Present (01/18/2025) Received from [facility] [place] of [facility] - Occupational Stress Questionnaire Feeling of Stress : Not at all Social Connections: Patient Unable To Answer (12/01/2024) Received from [facility] Social Connection and Isolation Panel [NHANES] Frequency of Communication with Friends and Family: Patient unable to answer Frequency of Social Gatherings with Friends and Family: Patient unable to answer Attends Confucianism Services: Patient unable to answer Active Member of Clubs or Organizations: Patient unable to answer Attends Club or Organization Meetings: Patient unable to answer Marital Status: Patient unable to answer Intimate Partner Violence: Patient Unable To Answer (11/28/2024) Received from [facility] Domestic Abuse Assessment Do you feel safe in your relationships at home?: Unable to assess Physical Abuse: Unable to assess [facility] Domestic Abuse - Type of Abuse: Not on file [facility] Domestic Abuse - Time Frame: Not on file [facility] Domestic Abuse - Signs and Symptoms: Not on file Verbal Abuse: Unable to assess [facility] Domestic Abuse - Reported To: Not on file Housing Stability: Patient Unable To Answer (12/01/2024) Received from [facility] Housing Stability Vital Sign Unable to [...] K 4.4 4.8 CL 95* 98 CO2 22 BUN 80* 91* CREATININE 3.50* 4.31* [...] Coumadin, last dose suspected 01/18/25 at [facility] Acute Right occipital ICH- 10/22/24 ESRD [...] y.o. male with who presented to [facility] as transfer for trach dislodgment. Palliative [...] RD, LD on 01/20/25 at 7:18 AM. [facility] Nephrology Consult Note Consults HPI The patient is a history of ESRD secondary to IgA nephropathy, currently HD-dependent via a left upper extremity AVF, on a Wednesday//Wednesday ([facility]) dialysis schedule, with the last [...] History: Diagnosis Date Acute renal failure (ARF) ([facility]) 10/19/2019 Anemia 12/30/2021 Calcification of abdominal aorta ([facility]) 10/08/202309/[address] abd Diverticulosis 10/08/2023 ESRD on hemodialysis ([facility]) ([facility]) 10/26/2019 Hemodialysis patient ([facility]) ([facility]) HTN (hypertension) 12/01/2022 Hypertension IgA nephropathy IgA nephropathy determined by biopsy of kidney 10/26/2019 Missed vaccination due to patient refusal 10/08/2023 Has a number of non-scientific based beliefs which interfere with his understanding and acceptance of the medical benefit of vaccination. Nonrheumatic aortic valve stenosis 10/08/2023 Paroxysmal A-fib ([facility]) ([facility]) 08/18/2023 Tobacco abuse 10/08/2023 Social History Socioeconomic [...] Patient Unable To Answer (12/01/2024) Received from [facility] Overall Financial Resource Strain (CARDIA) Difficulty of Paying Living Expenses: Patient unable to answer Food Insecurity: Patient Unable To Answer (12/01/2024) Received from [facility] Hunger Vital Sign Worried About Running Out of Food in the Last Year: Patient unable to answer Ran Out of Food in the Last Year: Patient unable to answer Transportation Needs: No Transportation Needs (01/18/2025) Received from [facility] Transportation Source Has lack of transportation kept you from medical appointments or from getting medications?: No Has lack of transportation kept you from meetings, work, or from getting things needed for daily living?: No Physical Activity: Not on file Stress: No Stress Concern Present (01/18/2025) Received from [facility] [place] of [facility]ational Health - Occupational Stress Questionnaire Feeling of Stress : Not at all Social Connections: Patient Unable To Answer (12/01/2024) Received from [facility] Social Connection and Isolation Panel [NHANES] Frequency of Communication with Friends and Family: Patient unable to answer Frequency of Social Gatherings with Friends and Family: Patient unable to answer Attends Confucianism Services: Patient unable to answer Active Member of Clubs or Organizations: Patient unable to answer Attends Club or Organization Meetings: Patient unable to answer Marital Status: Patient unable to answer Intimate Partner Violence: Patient Unable To Answer (11/28/2024) Received from [facility] Domestic Abuse Assessment Do you feel safe in your relationships at home?: Unable to assess Physical Abuse: Unable to assess [facility] Domestic Abuse - Type of Abuse: Not on file [facility] Domestic Abuse - Time Frame: Not on file [facility] Domestic Abuse - Signs and Symptoms: Not on file Verbal Abuse: Unable to assess [facility] Domestic Abuse - Reported To: Not on file Housing Stability: Patient Unable To Answer (12/01/2024) Received from [facility] Stability Vital Sign Unable to Pay [...] sodium chloride 0.9 % 100 mL IVPB ([place]), 3,000 mg, IntraVENous, Daily, Steve Lassiter MD [...] Results from last 7 days Lab Units 01/19/2534101/16/2531501/15/25256 SODIUM mmol/L 135* < > 135* POTASSIUM [...] 7 days Lab Units 01/19/25 0652 01/19/2534101/15/25 025 WBC AUTO 10*3/uL 10.9* 11.6* 12.0* HEMOGLOBIN [...] airway management needs. Maintain NPO status per STAVE INSPECTOR recommendations until airway stabilization; consider modification of HD orders if NPO persists beyond 24-48 hours impacting volume/nutrition Please message me through [employer] chat with any questions or concerns. Wellington Nicole MD 01/19/2025 4:13 PM [facility] [address] [place] [address], [address] [place] [address] Office: [phone] Associated Order(s): IP CONSULT TO DIETITIAN; IP [...] EN only as sole source of nutrition. STAVE INSPECTOR was following while pt was at [facility]. STAVE INSPECTOR consulted inpatient and recommending strict NPO. RD [...] was receiving and tolerating while at [facility]. Will monitor tolerance of nutrition as initiated and increased to goal. Will continue to monitor STAVE INSPECTOR in the event that oral diet can [...] Accumulation: No significant fluid accumulation (per flowsheets) Pull Tab Dealer Strength: Not Performed Nutrition Assessment: pt with [...] pt was stabilized and transferred to [facility] for ongoing care, vent liberation and rehab, while at [facility] RD was following and pt was receiving Nepro @ 50mls/hr, pt was discharged from [facility] to SNF on 01/18/25, pt now presented to [facility] ED on [facility] due to trach dislod[facility], pt stated he was trying to disconnect his vent to transfer to another room but accidentally pulled out his tracheostomy, event happened approximately 45 minutes before ED arrival, ED attempted to place tracheostomy tube back but was unsuccessful thus decision was made to transfer pt to [facility] ICU for further airway management and [...] has been like this since [facility], pt was transferred to ICU for further management, Nephrology and wound care consults pending, STAVE INSPECTOR was also consulted and recommending strict NPO. In terms of nutrition pt remains NPO at this time, RD spoke with pt in room, no family/visitors present, pt states that he was only receiving nutrition via PEG COPYWRITING INTER[employer], states his goals are to 'eat ice [...] presented from SNF, prolonged admit at [facility] 10/03-11/28/24, discharged to [facility] and recently transferred to [facility] [place] [facility] [place] Orientation Level: Oriented to situation, Oriented to [...] bedscale, 10/31: 200#, 11/28: 161#, 01/18: 142#) [place] Body Weight (lbs) (Calculated): 166 lbs [place] Body Weight (Kg) (Calculated): 75 kg % [place] Body Weight (Calculated): 78.2 % BMI (kg/m2) [...] Nutrition Dana El RD Contact: available via IMANIN or *[phone] Associated Order(s): INPATIENT CONSULT TO WOUND CARE PROVIDERS Images from the original note were not included. [facility] Wound Care CONSULT Note Jun [...] IgA nephropathy, severe that presented to [facility] ED from a facility due to trach dislodgement. Wound Care consulted for Pressure Injury sacrum and Ischemic ulcers to left toes" PAST MEDICAL HISTORY Past Medical History: Diagnosis Date Acute renal failure (ARF) ([facility]) 10/19/2019 Anemia 12/30/2021 Calcification of abdominal aorta ([facility]) 10/08/202309/[address] abd Diverticulosis 10/08/2023 ESRD on hemodialysis ([facility]) ([facility]) 10/26/2019 Hemodialysis patient ([facility]) ([facility]) HTN (hypertension) 12/01/2022 Hypertension IgA nephropathy IgA nephropathy determined by biopsy of kidney 10/26/2019 Missed vaccination due to patient refusal 10/08/2023 Has a number of non-scientific based beliefs which interfere with his understanding and acceptance of the medical benefit of vaccination. Nonrheumatic aortic valve stenosis 10/08/2023 Paroxysmal A-fib ([facility]) ([facility]) 08/18/2023 Tobacco abuse 10/08/2023 PAST SURGICAL HISTORY Past Surgical History: Procedure Laterality Date APPENDECTOMY CARDIAC CATHETERIZATION N/A 10/09/2024 Performed by Bob Watson MD at [facility] Cardiac Cath/EP Lab CARDIAC CATHETERIZATION Bilateral 11/01/2024 Performed by Bob Watson MD at [facility] Cardiac Cath/EP Lab CARDIAC CATHETERIZATION N/A 11/01/2024 Performed by Bob Watson MD at [facility] Cardiac Cath/EP Lab FISTULAGRAM (HISTORICAL) Left 09/15/2021 LEFT UPPER ARM HX AV FISTULA CREATION IR EMBOLIZATION 10/14/2024 IR EMBOLIZATION 10/14/2024 [facility] SPECIAL PROCEDURES IR FISTULAGRAM 08/07/2022 IR FISTULAGRAM 08/07/2022 [facility] IR IMAGING TONSILLECTOMY (HISTORICAL) FAMILY HISTORY Family [...] Medication Sig Dispense Refill epoetin rowan-epbx (Retacrit) 20752 UNIT/ML injection Inject 0.79 mL (7,900 Units) [...] follow Recommend to follow up at [facility] Outpatient wound care center after hospital [...] 4:05 PM EDT documented in this encounter [facility] 01-19-2025 History and physical note Images from [...] IgA nephropathy, severe that presented to [facility] ED from a facility due to trach dislodgement. Per patient, was trying to disconnect his vent to transfer to another room but accidentally pulled out his tracheostomy. This event happened approximately 45 minutes before ED arrival. ED attempted to place tracheostomy tube back but were unsuccessful. Decision was made to transfer patient to [facility] ICU for further airway management and [...] History: Diagnosis Date Acute renal failure (ARF) ([facility]) 10/19/2019 Anemia 12/30/2021 Calcification of abdominal aorta ([facility]) 10/08/202309/[address] abd Diverticulosis 10/08/2023 ESRD on hemodialysis ([facility]) ([facility]) 10/26/2019 Hemodialysis patient ([facility]) ([facility]) HTN (hypertension) 12/01/2022 Hypertension IgA nephropathy IgA nephropathy determined by biopsy of kidney 10/26/2019 Missed vaccination due to patient refusal 10/08/2023 Has a number of non-scientific based beliefs which interfere with his understanding and acceptance of the medical benefit of vaccination. Nonrheumatic aortic valve stenosis 10/08/2023 Paroxysmal A-fib ([facility]) ([facility]) 08/18/2023 Tobacco abuse 10/08/2023 Past Surgical History: Procedure Laterality Date APPENDECTOMY CARDIAC CATHETERIZATION N/A 10/09/2024 Performed by Bob Watson MD at [facility] Cardiac Cath/EP Lab CARDIAC CATHETERIZATION Bilateral 11/01/2024 Performed by Bob Watson MD at [facility] Cardiac Cath/EP Lab CARDIAC CATHETERIZATION N/A 11/01/2024 Performed by Bob Watson MD at [facility] Cardiac Cath/EP Lab FISTULAGRAM (HISTORICAL) Left 09/15/2021 LEFT UPPER ARM HX AV FISTULA CREATION IR EMBOLIZATION 10/14/2024 IR EMBOLIZATION 10/14/2024 [facility] SPECIAL PROCEDURES IR FISTULAGRAM 08/07/2022 IR FISTULAGRAM 08/07/2022 [facility] IR IMAGING TONSILLECTOMY (HISTORICAL) Family History Problem [...] Unable To Answer (12/01/2024) Received from [facility] Overall Financial Resource Strain (CARDIA) Difficulty of Paying Living Expenses: Patient unable to answer Food Insecurity: Patient Unable To Answer (12/01/2024) Received from [facility] Hunger Vital Sign Worried About Running Out of Food in the Last Year: Patient unable to answer Ran Out of Food in the Last Year: Patient unable to answer Transportation Needs: No Transportation Needs (01/18/2025) Received from [facility] Transportation Source Has lack of transportation kept you from medical appointments or from getting medications?: No Has lack of transportation kept you from meetings, work, or from getting things needed for daily living?: No Physical Activity: Not on file Stress: No Stress Concern Present (01/18/2025) Received from [facility] [place] [facility] Health - Occupational Stress Questionnaire Feeling of Stress : Not at all Social Connections: Patient Unable To Answer (12/01/2024) Received from [facility] Social Connection and Isolation Panel [NHANES] Frequency of Communication with Friends and Family: Patient unable to answer Frequency of Social Gatherings with Friends and Family: Patient unable to answer Attends Confucianism Services: Patient unable to answer Active Member of Clubs or Organizations: Patient unable to answer Attends Club or Organization Meetings: Patient unable to answer Marital Status: Patient unable to answer Intimate Partner Violence: Patient Unable To Answer (11/28/2024) Received from [facility] Domestic Abuse Assessment Do you feel safe in your relationships at home?: Unable to assess Physical Abuse: Unable to assess [facility] Domestic Abuse - Type of Abuse: Not on file [facility] Domestic Abuse - Time Frame: Not on file [facility] Domestic Abuse - Signs and Symptoms: Not on file Verbal Abuse: Unable to assess [facility] Domestic Abuse - Reported To: Not on file Housing Stability: Patient Unable To Answer (12/01/2024) Received from [facility] Housing Stability Vital Sign Unable to Pay for Housing in the Last Year: Patient unable to answer Number of Times Moved in the Last Year: 0 Homeless in the Last Year: Patient unable to answer Allergies Allergen Reactions Lisinopril Swelling and Angioedema Prior to Admission medications Medication Sig Start Date End Date Taking? Authorizing Provider epoetin rowan-epbx (Retacrit) 25797 UNIT/ML injection Inject 0.79 mL (7,900 Units) [...] Normal [] Scar/Lesion/Mass Inspection of teeth/lips/gums Dentition: []Ute Teeth []Dentures Lips/Gums: []Intact []Lesion Present Mucosa: []Yoder []Moist []Dry Neck: External Appearance Tracheostomy hole [...] 18.5* ABGs: No results for input(s): "PHART", "XVL3SGB", "PO2ART", "OAH2CEM", "SO2ART", "[id number]" in the last 72 hours. Lactic Acid: [...] Plan: Principal Problem: Complication of tracheostomy (CMS/HCC) ([facility]) Assessment: Trach dislodgement Chest pain ESRD Chronic [...] PM EDT I have personally performed a [id number] diagnostic evaluation on this patient on date [...] have bile peritonitis 11/28/24: transferred to [facility]. He continued on HD at [facility]. Reportedly had ongoing issues with delirium according to his partner, Toma who was at bedside and provided history. Developed severe sacral ulcer and sacral ostomyelitis at [facility]. He was progressing with STAVE INSPECTOR and using a PMV. Has not done any capping trials. Was transferred to a facility in [place]; there he inadvertently dislodged his tracheostomy. He initially presented to the [facility] emergency dept. He was transferred to [facility] in case of emergetn airway compromise. Assessment: Trach dislodgement, high risk of respiratory failure Chronic respiratory failure due to failure of airway protection ESRD Sacral osteomyelitis s/p AVR Full Code Plan: Admit to MICU Close monitorign for airway compromise Restart abx for osteomyelitis STAVE INSPECTOR eval; [facility] Critical Care Time: 33 minutes Total critical care time caring for this patient with life threatening, unstable organ failure, including direct patient contact, management of life support systems, review of data including imaging and labs, discussions with other team members and physicians, excluding procedures. Electronically signed by Bruce Nguyen MD documented in this encounter [facility] 01-19-2025 Emergency department Note EMERGENCY DEPARTMENT ENCOUNTER [...] History: Diagnosis Date Acute renal failure (ARF) ([facility]) 10/19/2019 Anemia 12/30/2021 Calcification of abdominal aorta ([facility]) 10/08/202309/[address] abd Diverticulosis 10/08/2023 ESRD on hemodialysis ([facility] ([facility]) 10/26/2019 Hemodialysis patient ([facility]) ([facility]) HTN (hypertension) 12/01/2022 Hypertension IgA nephropathy IgA nephropathy determined by biopsy of kidney 10/26/2019 Missed vaccination due to patient refusal 10/08/2023 Has a number of non-scientific based beliefs which interfere with his understanding and acceptance of the medical benefit of vaccination. Nonrheumatic aortic valve stenosis 10/08/2023 Paroxysmal A-fib ([facility]) ([facility]) 08/18/2023 Tobacco abuse 10/08/2023 SURGICAL HISTORY Past Surgical History: Procedure Laterality Date APPENDECTOMY CARDIAC CATHETERIZATION N/A 10/09/2024 Performed by Bob Watson MD at [facility] Cardiac Cath/EP Lab CARDIAC CATHETERIZATION Bilateral 11/01/2024 Performed by Bob Watson MD at [facility] Cardiac Cath/EP Lab CARDIAC CATHETERIZATION N/A 11/01/2024 Performed by Bob Watson MD at [facility] Cardiac Cath/EP Lab FISTULAGRAM (HISTORICAL) Left 09/15/2021 LEFT UPPER ARM HX AV FISTULA CREATION IR EMBOLIZATION 10/14/2024 IR EMBOLIZATION 10/14/2024 [facility] SPECIAL PROCEDURES IR FISTULAGRAM 08/07/2022 IR FISTULAGRAM 08/07/2022 [facility] IR IMAGING TONSILLECTOMY (HISTORICAL) CURRENT MEDICATIONS Previous Medications EPOETIN ROWAN-EPBX (RETACRIT) 06972 UNIT/ML INJECTION Inject 0.79 mL (7,900 Units) [...] Unable To Answer (12/01/2024) Received from [facility] Overall Financial Resource Strain (CARDIA) Difficulty of Paying Living Expenses: Patient unable to answer Food Insecurity: Patient Unable To Answer (12/01/2024) Received from [facility] Hunger Vital Sign Worried About Running Out of Food in the Last Year: Patient unable to answer Ran Out of Food in the Last Year: Patient unable to answer Transportation Needs: No Transportation Needs (01/18/2025) Received from [facility] Transportation Source Has lack of transportation kept you from medical appointments or from getting medications?: No Has lack of transportation kept you from meetings, work, or from getting things needed for daily living?: No Stress: No Stress Concern Present (01/18/2025) Received from [facility] [place] of Occupational Health - Occupational Stress Questionnaire Feeling of Stress : Not at all Social Connections: Patient Unable To Answer (12/01/2024) Received from [facility] Social Connection and Isolation Panel [NHANES] Frequency of Communication with Friends and Family: Patient unable to answer Frequency of Social Gatherings with Friends and Family: Patient unable to answer Attends Confucianism Services: Patient unable to answer Active Member of Clubs or Organizations: Patient unable to answer Attends Club or Organization Meetings: Patient unable to answer Marital Status: Patient unable to answer Intimate Partner Violence: Patient Unable To Answer (11/28/2024) Received from [facility] Domestic Abuse Assessment Do you feel safe in your relationships at home?: Unable to assess Physical Abuse: Unable to assess Verbal Abuse: Unable to assess Housing Stability: Patient Unable To Answer (12/01/2024) Received from [facility] Housing Stability Vital Sign Unable to [...] nursing note reviewed. Exam conducted with a apparel patternmaker present. Constitutional: General: He is not in [...] [facility] [facility] for observation with possible replacement tracheostomy if needed. ICU at [facility] was consulted and I spoke with Dr. Nguyen regarding admission to their service. He agrees with this indication and patient admitted to [facility] ICU. Diagnoses as of 01/19/25 0300 Complication of tracheostomy ([facility]) ([facility]) Medications - No data to display REVAL: [...] FINAL IMPRESSION 1. Complication of tracheostomy (CMS/HCC) ([facility]) DISPOSITION Admit 01/19/2025 03:00:18 AM PATIENT REFERRED [...] 01/19/25 0301 Pt arrived Via EMS from [facility]. Pt removed his trach which he is typically on 5L. 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 He is NPO and receiving IV antibiotics for the results of his blood cultures. Pt was recently transferred to [place] from [facility]. Pt arrived with a pressure of 88/52 and 96% on room air. RT and MD at bedside upon arrival. documented in this encounter [facility] 01-18-2025 History of Presen t illness Narrative [facility] documented in this encounter [facility] 01-17-2025 History of Presen t illness Narrative [facility]en at [facility] documented in this encounter [facility] 01-17-2025 History of Presen t illness Narrative [facility] documented in this encounter [facility] 01-16-2025 History of Presen t illness Narrative [facility] documented in this encounter [facility] 01-15-2025 History of Presen t illness Narrative Seen at [facility] documented in this encounter [facility] 01-15-2025 History of Presen t illness Narrative [facility] documented in this encounter [facility] 01-14-2025 History of Presen [facility] illness [facility] documented in this encounter [facility] 01-12-2025 History of Presen [facility] illness [facility] documented in this encounter [facility] 01-12-2025 History of Presen t illness Narrative Seen at [facility] documented in this encounter [facility] 01-11-2025 History of Presen [facility] illness [facility] documented in this encounter [facility] 01-11-2025 History of Presen t illness Narrative Seen at [facility] documented in this encounter [facility] 01-10-2025 History of Presen [facility] illness [facility] documented in this encounter [facility] 01-09-2025 History of Presen [facility] illness [facility] documented in this encounter [facility] 01-09-2025 History of Presen t illness Narrative Seen at [facility] documented in this encounter [facility] 01-08-2025 History of Presen [facility] illness [facility] documented in this encounter [facility] 01-08-2025 History of Presen t illness Narrative Seen at [facility] documented in this encounter [facility] 01-05-2025 History of Presen t illness Narrative [facility] Documentation including history, exam and plan documented in [facility] EMR. This encounter is for billing only. documented in this encounter [facility] 01-05-2025 History of Presen t illness Narrative [facility] 01/05 documented in this encounter [facility] 01-04-2025 History of Presen t illness Narrative Patient seen by me at [facility]. Documentation including history, exam and plan documented in [facility]. This encounter is for billing only. documented in this encounter [facility] 01-04-2025 History of Presen t illness Narrative [facility] 01/04 documented in this encounter [facility] 01-03-2025 History of Presen t illness Narrative Patient seen by me at [facility]. Documentation including history, exam and plan documented in [facility]. This encounter is for billing only. documented in this encounter [facility] 01-03-2025 History of Presen t illness Narrative Pt seen at [facility]. Complete documentation under [facility] EMR. documented in this encounter [facility] 01-02-2025 History of Presen t illness Narrative Pt seen at [facility]. Complete documentation under [facility] EMR. documented in this encounter [facility] 01-02-2025 History of Presen t illness Narrative Patient seen by me at [facility]. Documentation including history, exam and plan documented in [facility]. This encounter is for billing only. documented in this encounter [facility] 01-01-2025 History of Presen t illness Narrative Pt seen at [facility]. Complete documentation under [facility] EMR. documented in this encounter [facility] 01-01-2025 History of Presen t illness Narrative Patient seen by me at [facility]. Documentation including history, exam and plan documented in [facility] EMR. This encounter is for billing only. documented in this encounter [facility] 01-01-2025 History of Presen t illness Narrative Subsequent visit today at [facility] documented in this encounter [facility] 12-30-2024 History of Presen t illness Narrative Pt seen at [facility]. Complete documentation under [facility] E[facility]. documented in this encounter [facility] 12-28-2024 History of Presen t illness Narrative Patient seen by me at [facility]. Complete documentation including history with assessment and plan were documented in [facility] EMR. This encounter is for billing only. documented in this encounter [facility] 12-27-2024 History of Presen t illness Narrative Patient seen by me at [facility]. Complete documentation including history with assessment and plan were documented in [facility] EMR. This encounter is for billing only. documented in this encounter [facility] 12-26-2024 History of Presen t illness Narrative Patient seen by me at [facility]. Complete documentation including history with assessment and plan were documented in [facility] EMR. This encounter is for billing only. documented in this encounter [facility] 12-22-2024 History of Presen t illness Narrative Patient seen by me at [facility] in [place]. Complete documentation including history with assessment and plan were documented in [facility] EMR. This encounter is for billing only. documented in this encounter [facility] 12-21-2024 History of Presen t illness Narrative Patient seen by me at [facility] in [place]. Complete documentation including history with assessment and plan were documented in [facility] EMR. This encounter is for billing only. documented in this encounter [facility] 12-20-2024 History of Presen t illness Narrative Patient seen by ok at [facility] in [place]. Complete documentation including history with assessment and plan were documented in [facility] EMR. This encounter is for billing only. documented in this encounter [facility] 12-19-2024 History of Presen t illness Narrative Patient seen by me at [facility] in [place]. Complete documentation including history with assessment and plan were documented in [facility] EMR. This encounter is for billing only. documented in this encounter [facility] 12-18-2024 History of Presen t illness Narrative Patient seen by me at [facility] in [place]. Complete documentation including history with assessment and plan were documented in [facility] EMR. This encounter is for billing only. documented in this encounter [facility] 12-15-2024 History of Presen t illness [facility]ative [facility] documented in this encounter [facility] 12-14-2024 History of Presen t illness Narrative [facility] documented in this encounter [facility] 12-14-2024 Telephone encount er Note [facility] is [facility] at [facility]. I spoke to Karla, case resolution specialist, and she stated that patient has a tentative discharge date on 12/25. He will be going to a facility after that. Karla is not sure which one. I will check back with her closer to that date. [facility] 12-14-2024 Miscellaneous Notes Formattin g of this note might be different from the original. [facility] is [facility] at [facility]. I spoke to Karla, case resolution specialist, and she stated that patient has a [...] phone is restricted. Unable to lvm. Sent [employer] message. Thanks Will hold to contact patient s/p discharge. Thanks Pt remains admitted at this time. GI staff to contact pt for scheduling OV s/p discharge. Patient needs close follow up for repeat EGD for duodenal ulcer, had IR embolization of GDA. Currently in ICU. Thanks. documented in this encounter [facility] 12-13-2024 History of Presen t illness Narrative [facility] documented in this encounter [facility] 12-13-2024 Telephone encount er Note Called and spoke with patients son to discuss scheduling hospital follow up appointment. Omar advised me that the patient will be in the hospital long term care pharmacist as a lot happened while he was hospitalized. Patient does not wish to schedule at this time. Thanks [facility] 12-13-2024 Miscellaneous Notes Formattin g of this note might be different from the original. Called and spoke with patients son to discuss scheduling hospital follow up appointment. Omar advised me that the patient will be in the hospital long term care pharmacist as a lot happened while he was hospitalized. Patient does not wish to schedule at this time. Thanks Attempted to call patient to schedule hospital follow up. Patients phone is restricted. Unable to lvm. Sent [employer] message. Thanks Will hold to contact patient s/p discharge. Thanks Pt remains admitted at this time. GI staff to contact pt for scheduling OV s/p discharge. Patient needs close follow up for repeat EGD for duodenal ulcer, had IR embolization of GDA. Currently in ICU. Thanks. documented in this encounter [facility] 12-12-2024 History of Presen t illness Narrative [facility] documented in this encounter [facility] 12-11-2024 History of Presen t illness Narrative Seen at [facility] 12/11/24 documented in this encounter [facility] 12-11-2024 History of Presen t illness Narrative [facility] documented in this encounter [facility] 12-11-2024 Telephone encount er Note Attempted to call patient to schedule hospital follow up. Patients phone is restricted. Unable to lvm. Sent MyChart message. Thanks [facility] 12-11-2024 Miscellaneous Notes Formattin g of this [...] in ICU. Thanks. documented in this encounter [facility] 12-07-2024 History of Presen t illness Narrative [facility] documented in this encounter [facility] 12-07-2024 History of Presen t illness [facility]ative [facility] 12/07/24 documented in this encounter [facility] 12-06-2024 History of Presen t illness Narrative [facility] documented in this encounter [facility] 12-06-2024 History of Presen t illness Narrative [facility] 12/06/24 documented in this encounter [facility] 12-05-2024 History of Presen t illness Narrative [facility] documented in this encounter [facility] 12-04-2024 History of Presen t illness Narrative Follow[facility]up visit today [facility] documented in this encounter [facility] 12-04-2024 History of Presen t illness [facility]ative [facility] 12/04/24 documented in this encounter [facility] 12-01-2024 History of Presen t illness [facility]ative [facility] 12/01/24 documented in this encounter [facility] 12-01-2024 History of Presen t illness Narrative I did a level 4 consult on this patient [facility]. In reviewing Dr. Garcia's note she noted acute systolic right heart failure related to and accompanied by pulmonary hypertension. She noted the need for midodrine. Dr. Chow waited on atrial flutter and atrial tachycardia. He was put on amiodarone and attempt was YG cardioversion, unsuccessful. The last electrocardiogram done at the [facility] showed atrial flutter. documented in this encounter [facility] 12-01-2024 History of Presen t illness Narrative [facility] documented in this encounter [facility] 11-30-2024 History of Presen t illness Narrative [facility] documented in this encounter [facility] 11-30-2024 History of Presen t illness Narrative [facility] 11/30/24 documented in this encounter [facility] 11-29-2024 History of Presen t illness Narrative [facility] 11/29/24 documented in this encounter [facility] 11-29-2024 History of Presen t illness Narrative [facility] documented in this encounter [facility] 11-28-2024 Telephone encount er Note Name of Caller: Herminia Contact Physician requesting Consult: Michelle Caruso APRN Patient Location (facility name, room, bed number): [facility], 116 Patient Diagnosis/Reason for Consult:SOB Provider being paged: Dr Nathan Time page was sent: [phone] Department of provider being paged: [facility] Page Content: routine consult requested. Message sent via Secure Chat [facility] 11-28-2024 Miscellaneous Notes Formattin g of this note might be different from the original. Name of Caller: Herminia Contact Physician requesting Consult: Michelle Caruso APRN Patient Location (facility name, room, bed number): [facility], 116 Patient Diagnosis/Reason for Consult:SOB Provider being paged: Dr Nathan Time page was sent: [phone] Department of provider being paged: [facility] Page Content: routine consult requested. Message sent via Secure Chat documented in this encounter [facility] 10-17-2024 Telephone encount er Note Will hold to contact patient s/p discharge. Thanks [facility] 10-17-2024 Miscellaneous Notes Formattin g of this note might be different from the original. Will hold to contact patient s/p discharge. Thanks Pt remains admitted at this time. GI staff to contact pt for scheduling OV s/p discharge. Patient needs close follow up for repeat EGD for duodenal ulcer, had IR embolization of GDA. Currently in ICU. Thanks. documented in this encounter [facility] 10-17-2024 Miscellaneous Notes Formattin g of this note might be different from the original. Will hold to contact patient s/p discharge. Thanks Pt remains admitted at this time. GI staff to contact pt for scheduling OV s/p discharge. Patient needs close follow up for repeat EGD for duodenal ulcer, had IR embolization of GDA. Currently in ICU. Thanks. documented in this encounter [employer] [facility] 10-17-2024 Telephone encount er Note Pt remains admitted at this time. GI staff to contact pt for scheduling OV s/p discharge. [facility] 10-16-2024 Telephone encount er Note Patient needs close follow up for repeat EGD for duodenal ulcer, had IR embolization of GDA. Currently in ICU. Thanks. [employer] Work Phone: 10-16-2024 Miscellaneous Notes Formattin g of this note might be different from the original. Patient needs close follow up for repeat EGD for duodenal ulcer, had IR embolization of GDA. Currently in ICU. Thanks. documented in this encounter [facility] 10-12-2024 Note Formatting of this n ote is different from the original. Patient: Jair Snyder Procedure Summary Date: 10/12/24 Room / Location: [address] Operating Room Anesthesia Start: 725 Anesthesia [...] once all PACU criteria has been met. [facility] 10-12-2024 Miscellaneous Notes Formattin g of this note is different from the original. Patient: Jair Snyder Procedure Summary Date: 10/12/24 Room / Location: [facility] OR [address] [place] [address] Operating Room Anesthesia Start: 725 Anesthesia Stop: [...] has been met. documented in this encounter [facility] 10-12-2024 Anesthesiology Postoperative evaluation and management note Patient: Jair Snyder Procedure Summary Date: 10/12/24 Room / Location: [address] Operating Room Anesthesia Start: 725 Anesthesia [...] opportunity for questions and acknowledgement of understanding. [email or web address] Phone: 10-12-2024 Surgical operatio n note Patient: Jair Snyder Procedure Summary Date: 10/12/24 Room / Location: [address] Operating Room Anesthesia Start: 725 Anesthesia [...] during the procedure: no complications. Staffing Performed: FOAM CHARGER Resident/FOAM CHARGER: Rudolph German CRNA Associated Order(s): Airway Airway Date/Time: 10/12/2024 7:38 AM Urgency: scheduled Airway not difficult General Information and Staff Patient location during procedure: Procedural Anesthesiologist: Vincent Wilson MD Resident/FOAM CHARGER: Rudolph German CRNA Performed: anesthesiologist Indications and [...] well with no complications. Staffing Performed: DECLAN Resident/FOAM CHARGER: Rudolph German CRNA Patient: Jair Snyder Procedure Information Date/Time: 10/12/24729 Procedures: AORTIC VALVE REPAIR, POSSIBLE REPLACEMENT (Chest) - 7:30 am, 5 hours TRICUSPID REPLACEMENT WITH RING (Chest) TRANSESOPHAGEAL ECHOCARDIOGRAM Location: [facility] OR [address] [place] [address] Operating Room Surgeons: Luciano Montemayor MD Relevant Problems Cardio (+) Aortic stenosis (+) Atrial flutter, unspecified type ([facility]) (+) Calcification of abdominal aorta (HCC) (+) HTN (hypertension) (+) Nonrheumatic aortic valve stenosis (+) Paroxysmal A-fib (CMS/HCC) ([facility]) GI (+) Diverticulosis /Renal (+) ESRD on hemodialysis (CMS/HCC) ([facility]) (+) IgA nephropathy determined by biopsy of kidney Past Medical History: Past Medical History: 10/19/2019: Acute renal failure (ARF) ([facility]) 12/30/2021: Anemia 10/08/2023: Calcification of abdominal aorta ([facility]) Comment: 09/[address] abd 10/08/2023: Diverticulosis 10/26/2019: ESRD on hemodialysis (CMS/HCC) ([facility]) No date: Hemodialysis patient (CMS/HCC) ([facility]) 12/01/2022: HTN (hypertension) No date: Hypertension No date: IgA nephropathy 10/26/2019: IgA nephropathy determined by biopsy of kidney 10/08/2023: Missed vaccination due to patient refusal Comment: Has a number of non-scientific based beliefs which interfere with his understanding and acceptance of the medical benefit of vaccination. 10/08/2023: Nonrheumatic aortic valve stenosis 08/18/2023: Paroxysmal A-fib (CMS/HCC) ([facility]) 10/08/2023: Tobacco abuse Past Surgical History: Past Surgical History: No date: APPENDECTOMY 10/09/2024: CARDIAC CATHETERIZATION; N/A Comment: Performed by Bob Watson MD at [facility] Cardiac Cath/EP Lab 09/15/2021: FISTULAGRAM (HISTORICAL); Left Comment: LEFT UPPER ARM No date: HX AV FISTULA CREATION 08/07/2022: IR FISTULAGRAM Comment: IR FISTULAGRAM 08/07/2022 [facility] IR IMAGING No date: TONSILLECTOMY (HISTORICAL) Social [...] Additional Equipment Requests documented in this encounter [facility] 10-12-2024 Procedure anesthe jaki Narrative Procedure Name [...] Arteriovenous Fistula Placement Date: 08/17/23; Placement Time: 11008/17/23 110 by Jayesh Sotomayor RN Wound/Incision 10/09/24; 0330; [...] Per order 10/12/24 0737 by Rudolph German, FOAM CHARGER 10/16/24 0930 by Wanda Hays RN ETT Placement Date: 10/12/24; Placement Time: 0738 (created via procedure documentation); Type: ETT - single; Single Lumen Tube Size: 8 mm; Cuffed: Yes; Location: Oral; Placement Verification: Capnometry; Airway Comments: Pt self-extubated, placed on 6lnc.; Removal Date: 10/12/24; Removal Time: 1319 10/12/24 0738 by Rudolph German, FOAM CHARGER 10/12/24 1319 by Darryn Naik RCP Pulmonary [...] Hunter Dove RN [id number] Anesthesiology procedure note* Anesthesia Procedure Notes - [...] during the procedure: no complications. Staffing Performed: DECLAN Resident/FOAM CHARGER: Rudolph German CRNA [facility]01-16-2025 Anesthesiology procedure note* Anesthesia Procedure Notes - Rudolph German CRNA - 10/12/2024 7:49 AM ESTAssociated Order(s): Airway Airway Date/Time: 10/12/2024 7:38 AM Urgency: scheduled Airway not difficult General Information and Staff Patient location during procedure: Procedural Anesthesiologist: Vincent Wilson MD Resident/FOAM CHARGER: Rudolph German CRNA Performed: anesthesiologist Indications and [...] 21 Number of attempts at approach: 1 [facility]01-16-2025 Anesthesiology procedure note* Anesthesia Procedure Notes - [...] procedure well with no complications. Staffing Performed: FOAM CHARGER Resident/FOAM CHARGER: uRdolph German CRNA [id number] Anesthesiology Preoperative evaluation and management note* Anesthesia Preprocedure Evaluation - Vincent Wilson MD - 10/12/2024 6:56 AM EST Patient: Jair Snyder Procedure Information Date/Time: 10/12/24 0730 Procedures: AORTIC VALVE REPAIR, POSSIBLE REPLACEMENT (Chest) - 7:30 am, 5 hours TRICUSPID REPLACEMENT WITH RING (Chest) TRANSESOPHAGEAL ECHOCARDIOGRAM Location: [facility] Operating Room Surgeons: Luciano Montemayor MD Relevant Problems Cardio (+) Aortic stenosis (+) Atrial flutter, unspecified type (HCC) (+) Calcification of abdominal aorta (HCC) (+) HTN (hypertension) (+) Nonrheumatic aortic valve stenosis (+) Paroxysmal A-fib (CMS/HCC) ([facility]) GI (+) Diverticulosis /Renal (+) ESRD on hemodialysis (CMS/HCC) ([facility]) (+) IgA nephropathy determined by biopsy of kidney Past Medical History: Past Medical History: 10/19/2019: Acute renal failure (ARF) ([facility]) 12/30/2021: Anemia 10/08/2023: Calcification of abdominal aorta ([facility]) Comment: 09/[address] abd 10/08/2023: Diverticulosis 10/26/2019: ESRD on hemodialysis ([facility]/HCC) ([facility]) No date: Hemodialysis patient (CMS/HCC) ([facility]) 12/01/2022: HTN (hypertension) No date: Hypertension No date: IgA nephropathy 10/26/2019: IgA nephropathy determined by biopsy of kidney 10/08/2023: Missed vaccination due to patient refusal Comment: Has a number of non-scientific based beliefs which interfere with his understanding and acceptance of the medical benefit of vaccination. 10/08/2023: Nonrheumatic aortic valve stenosis 08/18/2023: Paroxysmal A-fib (CMS/HCC) ([facility]) 10/08/2023: Tobacco abuse Past Surgical History: Past Surgical History: No date: APPENDECTOMY 10/09/2024: CARDIAC CATHETERIZATION; N/A Comment: Performed by Bob Watson MD at [facility] Cardiac Cath/EP Lab 09/15/2021: FISTULAGRAM (HISTORICAL); Left Comment: LEFT UPPER ARM No date: HX AV FISTULA CREATION 08/07/2022: IR FISTULAGRAM Comment: IR FISTULAGRAM 08/07/2022 [facility] IR IMAGING No date: TONSILLECTOMY (HISTORICAL) Social [...] 10:45 AM Equipment Requests: Additional Equipment Requests [facility] [id number] History of Present illness Narrative* Jr Shah MD - 08/28/2024 3:15 PM EST Images from the original note were not included. [facility] CARDIOLOGY - [address] [place] [id number] Dept: [phone] Dept Visit type: Established : 1965 Reason for Visit: 6 Month Follow-up Assessment and Plan 1. Paroxysmal A-fib (CMS/HCC) ([facility]) Assessment & Plan: Paroxysmal. Infrequent episodes that [...] months (around 02/26/2025) for [facility] f/u in [place]. Subjective Afib after admission 07/2023. ESRD on [...] On theother hand, a mechanical valve with long term care pharmacist OAC carries its own risks with a [...] none/quit. Pt would like to f/u in [place]. Was concerned about location and level of [...] History: Diagnosis Date Acute renal failure (ARF) ([facility]) 10/19/2019 Anemia 12/30/2021 Calcification of abdominal aorta ([facility]) 10/08/202309/[address] abd Diverticulosis 10/08/2023 ESRD on hemodialysis ([facility]) ([facility]) 10/26/2019 Hemodialysis patient ([facility]) ([facility]) HTN (hypertension) 12/01/2022 Hypertension IgA nephropathy IgA [...] medical care for thiscondition(s). documented in this [facility]12-02-2024 Evaluation + Plan note* Assessment & Plan Note - Jr Shah MD - 08/28/2024 1:07 PM EST Associated Problem(s): Alcohol use disorder in remission Says he is a "functioning alcoholic". Stopping drinking in 2019. -Recommend stay quit due to addiction and risk of bleeding. [facility] [id number] Evaluation + Plan note* Assessment & Plan Note - Jr Shah MD - 08/28/2024 1:07 PM ESTAssociated Problem(s): Tobacco abuse 1 ppd. Recommend complete cessation. -Recommend CT lung cancer screening. [facility] [id number] Miscellaneous Notes* Assessment & Plan Note - [...] ablation, watchman device, etc. documented in this [facility]12-02-2024 Evaluation + Plan note* Assessment & Plan [...] which will need to be carefully considered. [facility] [id number] Evaluation + Plan note* Assessment & Plan [...] see EP, discuss ablation, watchman device, etc. [facility] [id number] History of Present illness Narrative* Alan Barroso RN - 05/10/2024 2:38 PM EDT Dialysis center status inquiry form received from [facility]. Form completed and faxed back to ELIA Marin at [phone]. Patient was called 04/12/2024 but voicemail was full, letter was sent to please call the office at [phone] to complete intake. Referral was closed. Please have patient call the office to complete intake. JHONY Meier RN May 10, 2024 2:41 PM [facility] Telephone encounter Note * Telephone Encounter - Lanie Luis - 04/12/2024 11:49 AM EDT I called patient to start the kidney referral intake process. Voicemail is full, sent a letter out. Lanie [facility]07-17-2024 Miscellaneous Notes* Telephone Encounter - Lanie Luis - 04/12/2024 11:49 AM EDT I called patient to start the kidney referral intake process. Voicemail is full, sent a letter out. Lanie [facility] Telephone encounter Note * Telephone Encounter - Tracie Chin RN - 02/14/2024 10:23 AM EDT Called LM with pt with central scheduling number. Advised to call to schedule echo. [facility] [id number] Miscellaneous Notes* Telephone Encounter - Tracie Chin RN - 02/14/2024 10:23 AM EDT Called LM with pt with central scheduling number. Advised to call to schedule echo. * Telephone Encounter - Dorcas Pabon - 02/12/2024 10:28 AM EDT Unable to contact patient - called and lvm and sent mychart message for echo Deferred documented in this encounterSOhio [facility] SystemBghcza12-41-0337 Telephone encounter Note* Telephone Encounter - Dorcas Pabon - 02/12/2024 10:28 AM EDT Unable to contact patient - called and lvm and sent mychart message for echo Deferred [facility] [id number] Miscellaneous Notes* Telephone Encounter - Dorcas Pabon - 02/12/2024 10:28 AM EDT Unable to contact patient - called and lvm and sent mychart message for echo Deferred documented in this [facility]05-18-2024 Telephone encounter Note* Telephone Encounter - Dorcas Pabon - 02/12/2024 10:23 AM EDT Unable to contact patient to schedule CT lung screening - called and sent mychart message Deferred [facility] [id number] Miscellaneous Notes* Telephone Encounter - Dorcas Pabon - 02/12/2024 10:23 AM EDT Unable to contact patient to schedule CT lung screening - called and sent mychart message Deferred documented in this [facility]02-16-2024 Evaluation + Plan note* Assessment & Plan Note - DENIA Dumont CNP - 11/12/2023 4:50 PM EST Associated Problem(s): Tobacco abuse 1 ppd. Recommend complete cessation. Consider CT lung cancer screening. [facility] [id number] Miscellaneous Notes* Assessment & Plan Note - [...] than just dialysis days. documented in this [facility]02-16-2024 Evaluation + Plan note* Assessment & Plan Note - DENIA Dumont CNP - 11/12/2023 4:48 PM EST Associated Problem(s): Calcification of abdominal aorta (HCC) Sep 2023, by chart review this is the only ASCVD finding. Utility of lipid- lowering agent controversial in ESRD and does not appear to be improved with moderate intensity statins. -expectant mgt [facility] [id number] Evaluation + Plan note* Assessment & Plan Note - DENIA Dumont CNP - 11/12/2023 4:48 PM ESTAssociated Problem(s): HTN (hypertension) Goal BP < 130/80 mmHg. BP today in office borderline. -continues on toprol XL -mgt per PCP and renal [place] [id number] Evaluation + Plan note* Assessment & Plan [...] cardiac intervention that he is open to. [facility] [id number] Evaluation + Plan note* Assessment & Plan [...] dose overall, rather than just dialysis days. [facility] [id number] History of Present illness Narrative* DENIA Dumont CNP - 11/12/2023 1:30 PM EST Images from the original note were not included. [facility] MED[facility] C[facility]IOLOG[facility] [address] [place] [address] [address] [facility] [address] Dept: [phone] Dept Loc: [phone] Visit type: Established : 1965 Reason for [...] he is open to. 2. Paroxysmal A-fib ([facility]) ([facility]) Assessment & Plan: Paroxysmal. Refer to Dr. [...] lung cancer screening. 6. ESRD on hemodialysis ([facility]) ([facility]) Follow up in about 6 months (around [...] History: Diagnosis Date Acute renal failure (ARF) ([facility]) 10/19/2019 Anemia 12/30/2021 Calcification of abdominal aorta ([facility]) 10/08/202309/[address] abd Diverticulosis 10/08/2023 ESRD on hemodialysis ([facility]) ([facility]) 10/26/2019 Hemodialysis patient ([facility]) ([facility]) HTN (hypertension) 12/01/2022 Hypertension IgA nephropathy IgA nephropathy determined by biopsy of kidney 10/26/2019 Missed vaccination due to patient refusal 10/08/2023 Has a number of non-scientific based beliefs which interfere with his understanding and acceptance of the medical benefit of vaccination. Nonrheumatic aortic valve stenosis 10/08/2023 Paroxysmal A-fib ([facility]) ([facility]) 08/18/2023 Tobacco abuse 10/08/2023 Social History Tobacco [...] PM DENIA Dumont CNP documented in this encounterSOhio State Health SystemOtlpdh62-60-1622 Telephone encounter Note* Telephone Encounter - Sydni Rodrigues - 11/01/2023 9:41 AM EST Called pt lmom for a return call to set up appt [facility] WestKlwinu09-14-0518 Miscellaneous Notes* Telephone Encounter - Sydni Rodrigues [...] 10/14/2023 7:58 AM EST Preferred contact number: [phone] Reason for Visit: Jun called in to cancel his appt this morning. He woke up and is very sick. Please contact him to reschedule. Urgency of Appointment: office visit documented in this [facility]01-22-2024 Telephone encounter Note* Telephone Encounter - Sydni Rodrigues - 10/18/2023 2:34 PM EST Called pt LMOM for a return call to set up appt [facility] [id number] Telephone encounter Note* Telephone Encounter - Sydni Rodrigues - 10/14/2023 8:56 AM EST Called pt LMOM for a return call to r/s appt [facility] [id number] Telephone encounter Note* Telephone Encounter - Regino Ortiz - 10/14/2023 7:58 AM EST Preferred contact number: [phone] Reason for Visit: Jnu called in to cancel his appt this morning. He woke up and is very sick. Please contact him to reschedule. Urgency of Appointment: office visit [facility] [id number] Telephone encounter Note* Telephone Encounter - Darya Payne - 08/23/2023 1:47 PM EST 2nd attempt to schedule, no answer, left message. [facility] [id number] Miscellaneous Notes* Telephone Encounter - Daryawilton Payne - 08/23/2023 1:47 PM EST 2nd attempt to schedule, no answer, left message. * Telephone Encounter - Daryawilton Payne - 08/18/2023 2:13 PM EST Left message requesting a call back from the patient to schedule appointment. * Telephone Encounter - Daryabernadette Payne - 08/18/2023 2:12 PM EST ----- Message from DENIA Dumont CNP sent at 08/18/2023 8:30 AM EST ----- Patient discharged from [facility]. Please assist with s/p hosp "[facility]," okay within the next ~week. Thanks! documented in this encounterSOhio State Health SystemWixupf68-89-8056 Telephone encounter Note* Telephone Encounter - Darya Cotabritton - 08/18/2023 2:13 PM EST Left message requesting a call back from the patient to schedule appointment. [facility] [id number] Telephone encounter Note* Telephone Encounter - Daryawilton Payne - 08/18/2023 2:12 PM EST ----- Message from DENIA Dumont CNP sent at 08/18/2023 8:30 AM EST ----- Patient discharged from [facility]. Please assist with s/p hosp "[facility]," okay within the next ~week. Thanks! [place] [id number] Emergency department Note* Mary Ann Meraz RN - 08/17/2023 3:11 PM EST Patient education given in regard to medications, as well as following-up with PCP. Patient given eliquis information packet, understanding well. Mary Ann Meraz RN 08/17/23 151 [facility] [id number] Emergency department Note* Mary Ann Meraz RN - 08/17/2023 3:11 PM EST Patient education given in regard to medications, as well as following-up with PCP. Patient given eliquis information packet, understanding well. Mary Ann Meraz RN 08/17/23 151 * Dangelo Horne DO - 08/16/2023 6:16 PM EST Emergency Department Encounter [facility] ED Patient: Jun Snyder : 1965 Date [...] for clarification.) Dangelo Horne DO Acute Care [facility] Dangelo Horne DO 08/16/231922 Dangelo Horne DO 08/16/231957 * Sha Granados PA-C - 08/16/2023 6:16 PM EST Emergency Department Encounter [facility] ED Patient: Jun Snyder : 1965 Date [...] gross facial drooping. No obvious neurologic deficits. Pull Tab Dealer strength symmetrical. Moves all 4 extremities spontaneously. [...] 364 ms QTC Interval 491 ms P [place] degrees QRS [place] 61 degrees T Wave [place] -20 degrees [place] Interval ms Radiographs: XR chest 1 view Final Result 1. Cardiomegaly. 2. No other acute findings. Report Dictated on Electronically Signed By: Justo Milan MD Electronically Signed Date/Time: 08/16/2023 6:42 PM EST : EKG: All EKG's areinterpreted by the Emergency Department Physician in the absence of a cert pharmacy tech. see their note for interpretation of [...] for new onset A-fib. Patient excepted to [facility]. Final Diagnosis: 1. New onset a-fib (CMS/HCC) ([facility]) Medications - No data to display Diagnoses as of 08/16/232129 New onset a-fib (CMS/HCC) ([facility]) CRITICAL CARE TIME CONSULTS: None PROCEDURES: Unless otherwise noted below, none Procedures DISPOSITION/PLAN Admit 08/16/2023 08:09:48 PM PATIENT REFERRED TO: No follow-up provider specified. DISCHARGE MEDICATIONS: New Prescriptions No medications on file @[facility]([id number]:LAST:1)@ (Please note: Portions of this note were completed with a voice recognition program. Efforts were made to edit the dictations but occasionally words and phrases are mis-transcribed.) Form [id number] Sha Granados PA-C Acute [facility] Sha Granados PA-C 08/16/230 documented in this [facility]11-21-2023 Hospital Discharge instructions* Discharge Instr - Other Orders* DENIA Lorenzo CNP - 08/17/2023 3:02 PM EST Please discontinue Labetalol and Caduet; see discharge medication list Next dialysis session is 08/18/23 as previously instructed * Attachments The following attachments cannot be sent through Care Everywhere. * Atrial Fibrillation (Palauan) * Going Home on Blood Thinners (Palauan) * Apixaban, ADULT (Palauan) documented in this [facility]11-21-2023 History of Present illness Narrative* DENIA Lorenzo [...] Past Medical History: Diagnosis Date Hemodialysis patient ([facility]) (HCC) Hypertension IgA nephropathy LABS: CBC: Recent Labs 08/16/23 1843 WBC 9.5 RBC 4.60 HGB 14.5 HCT 41.6 MCV 90.5 RDW 14.7* PLT 254 BMP: Recent Labs 08/16/233 08/17/23 0058 NA 133* 134* K 4.5 [...] last 72 hours. CARDIAC ENZYMES: Recent Labs 08/16/23184208/16/23219908/17/23 0058 TROPONINI 0.037* 0.062* 0.094* Procalcitonin: No [...] Information Primary Emergency Contact: Alexx Snyder Address: [address] [place] [address] [place] Relation: Child DENIA Lorenzo CNP Division of Hospitalist Medicine Inpatient Medical Services/[facility] Comment: Please note this report has been [...] reflects time of documentation. documented in this [facility]11-21-2023 Consult note* Rj Villela MD - 08/17/2023 10:16 AM ESTAssociated Order(s): IP CONSULT TO CARDIOLOGY [facility] CARDIOLOGY CONSULTATION Patient Name: Jun Snyder : [...] left heart disease. Rj Villela M.D., F.A.C.C. Guide Cruise Chief, Division of Cardiac Imaging Clinical [employer], [employer] Data Collection Cardiac Testin08/16/23 ECG 12-LEAD 08/17/2023 [...] a past medical history of Hemodialysis patient ([facility]) (HCC), Hypertension, and IgA nephropathy. He has [...] alert. Psychiatric: Mood and Affect: Mood normal. [employer] Work Phone: 1(414) 502-119511-21-2023 Consult note* Rj Villela MD - 08/17/2023 10:16 AM ESTAssociated Order(s): IP CONSULT TO CARDIOLOGY [facility] CARDIOLOGY CONSULTATION Patient Name: Jun Snyder : [...] to left heart disease. Rj [place]illela M.D., F.Matt.CRomuloC. Guide Cruise Chief, Division of Cardiac Imaging Clinical Automatic [employer], [facility] Data Collection Cardiac Testin08/16/23 ECG 12-LEAD 08/17/2023 [...] a past medical history of Hemodialysis patient ([facility]) (HCC), Hypertension, and IgA nephropathy. He has [...] and Affect: Mood normal. documented in this [facility]11-20-2023 History and physical note* Earlene Irving MD - 08/16/2023 8:38 PM EST Images from the original note were not included. 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 irregular rhythm suspected A-fib and referred [...] Past Medical History: Diagnosis Date Hemodialysis patient ([facility]) (HCC) Hypertension IgA nephropathy Past Surgical History: [...] 08/16/2023 364 QTC Interval 08/16/2023 491 QRS [place] 08/16/2023 61 T Wave [place] 08/16/2023 -20 SODIUM 08/16/2023 133 (L) POTASSIUM [...] QT Interval 364 QTC Interval 491 P [place] QRS [place] 61 T Wave [place] -20 [place] Interval Impression ATRIAL FIBRILLATION, V-RATE 88-139 INCOMPLETE [...] monitor him on telemetry asked cardiology to [facility] we will additionally request echocardiogram. He is not experiencing chest pain but he is a current smoker and I do not see a recent cardiac work-up in the computer EKG on admission did confirm atrial fibrillation but he is currently in sinus rhythm Anticoagulation yet to be determined His current [id number] score would be 1 based upon history [...] to due risk bleed/procedure 08/16/2023 Jun Snyder [id number] Any scheduled follow up appointments No future appointments. Extended Emergency Contact Information Primary Emergency Contact: LillianAlexx Address: [address] [place] [address] [facility] of [place] Relation: Child Portions of this note may be electronically transcribed. Please forward a copy of this H&P to the primary care physician. [facility] [id number] History and physical note* Earlene Irving MD - 08/16/2023 8:38 PM EST Images from the original note were not included. 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 we will additionally request echocardiogram. He is not experiencing chest pain but he is a current smoker and I do not see a recent cardiac work-up in the computer EKG on admission did confirm atrial fibrillation but he is currently in sinus rhythm Anticoagulation yet to be determined His current PDM1PO6-[id number] score would be 1 based upon history [...] to due risk bleed/procedure 08/16/2023 Jun Snyder [id number] Any scheduled follow up appointments No future appointments. Extended Emergency Contact Information Primary Emergency Contact: Alexx Snyder Address: [address] [place] [address] of [facility] Mobile Relation: Child Portions of this note may be electronically transcribed. Please forward a copy of this H&P to the primary care physician. documented in this [facility]11-20-2023 Physician Emergency department Note* Dangelo Horne, - 08/16/2023 6:16 PM EST Emergency Department Encounter [facility] ED Patient: Jun Snyder : 1965 Date [...] Horne DO 08/16/231922 Dangelo Horne DO 08/16/231957 [facility] [employer] Phone: 1(287) 319-829211-20-2023 Physician Emergency department Note* Sha Granados PA-C - 08/16/2023 6:16 PM EST Emergency Department Encounter [facility] ED Patient: Jun Snyder : 1965 Date of Evaluation: 08/16/2023 ED [facility] Provider: Sha Granados PA-C EDcare was supervised by Dr. Honre who independently examined and evaluated the patient. [...] IR FISTULAGRAM 08/07/2022 IR FISTULAGRAM 08/07/2022 [facility] IR IMAGING TONSILLECTOMY (HISTORICAL) Social History Socioeconomic [...] gross facial drooping. No obvious neurologic deficits. Pull Tab Dealer strength symmetrical. Moves all 4 extremities spontaneously. [...] 364 ms QTC Interval 491 ms P [place] degrees QRS [place] 61 degrees T Wave [place] -20 degrees [place] Interval ms Radiographs: XR chest 1 view Final Result 1. Cardiomegaly. 2. No other acute findings. Report Dictated on Electronically Signed By: Justo Milan MD Electronically Signed Date/Time: 08/16/2023 6:42 PM EST : EKG: All EKG's areinterpreted by the Emergency Department Physician in the absence of a cert pharmacy tech. see their note for interpretation of [...] for new onset A-fib. Patient excepted to [facility]. Final Diagnosis: 1. New onset a-fib (CMS/HCC) ([facility]) Medications - No data to display Diagnoses as of 08/16/232129 New onset a-fib (CMS/HCC) ([facility]) CRITICAL CARE TIME CONSULTS: None PROCEDURES: Unless otherwise noted below, none Procedures DISPOSITION/PLAN Admit 08/16/2023 08:09:48 PM PATIENT REFERRED TO: No follow-up provider specified. DISCHARGE MEDICATIONS: New Prescriptions No medications on file @[facility]([id number]:LAST:1)@ (Please note: Portions of this note were completed with a voice recognition program. Efforts were made to edit the dictations but occasionally words and phrases are mis-transcribed.) Form [id number] Sha Granados PA-C [employer] Sha Granados PA-C 08/16/232129 [facility]08-05-2023 Hospital Discharge instructions* Discharge Instructions* Jese Frank [...] petroleum jelly on it. documented in this [facility]08-05-2023 Emergency department Note* Jese Frank MD - [...] ESRD (end stage renal disease) on dialysis ([facility]): complicated acute illness or injury Skin sore: [...] ESRD (end stage renal disease) on dialysis ([facility]) * No order type specified * MDM: [...] ESRD (end stage renal disease) on dialysis ([facility]) DISPOSITION/PLAN DISPOSITION Discharge 05/01/2023 08:15:56 PM PATIENT REFERRED TO: Daryn Loomis MD [address] [facility] [address] In 1 week [facility] [address] [place] [address] [address] [address] I prescribed: New Prescriptions EMOLLIENT [...] has no further needs. documented in this [facility]08-05-2023 Emergency department Triage note* Sony Dacosta RN [...] within reach. Patient has no further needs. [facility] [id number] Physician Emergency department Note* Jese Frank MD [...] ESRD (end stage renal disease) on dialysis ([facility]): complicated acute illness or injury Skin sore: [...] ESRD (end stage renal disease) on dialysis ([facility] [facility] * No order type specified * MDM: [...] ESRD (end stage renal disease) on dialysis ([facility]) DISPOSITION/PLAN DISPOSITION Discharge 05/01/2023 08:15:56 PM PATIENT REFERRED TO: Daryn Loomis MD [address] [facility] [address] In 1 week [facility] Cardiac, Thoracic and Vascular Specialties [address] [place] [address] [address] [address] I prescribed: New Prescriptions EMOLLIENT [...] MD (electronically signed) Jese Frank MD 05/01/232038 [id number] Miscellaneous Notes* Telephone Encounter - Karly Fortune Pss - 01/01/2022 2:36 PM EDT I scheduled him w/ Dr. reid on WednesdayFebruary 16 and left him a detailed vm that I did. This is all have at [facility] we are in to March and jair needs a Wednesday or Wednesday bc of dialysis I am sorry, I don't have solution or advise for hospital schedule issues. Next best thing is to discuss with Naomi. May be when Dr. King or Marti come in for special cases to [facility], can this case beincluded at that time. Or if you [facility] schedule and make room for me to come to [facility] any day I can get this done. Thanks! * Telephone Encounter - Karly Fortune Pss - 12/30/2021 10:36 AM EDT Antonio I had him scheduled for his colon w/ tejas for next WednesdayJanuary 05 but Peggy ramirez said he has to be done at [facility] bc of his hgb. I have no openings at [facility] and I don't know what to do Can you please let me know how to proceed. Thank you Eryn PS I NEED A NEW COLON ORDER FOR [facility] documented in this encounterFlower [facility]04-05-2022 Miscellaneous Notes* Telephone Encounter - Karly Fortune Pss - 12/30/2021 9:33 AM EDT Antonio Painter saw a patient the other day and he ordered him a colon for blood loss anemia I scheduled him for [facility] but his hgb is 6 so Charo wants him at [facility] . He is also on dialysisand could only do a Wednesday. All docs are booked until March You had a cancellation for next . Can I please put him w/ you? Thank you Eryn documented in this encounterFlower Hospital04-04-2022 Miscellaneous Notes* Telephone Encounter - Karly Fortune [facility] - 12/29/2021 4:18 PM EDT Antonio I know this patient saw Inocencio the other day as a new patient. I have him scheduled her and his hgb is 6 Could you please do an order for me? I have to get him on tayo Thanks Eryn documented in this encounterFlower Hospital03-31-2022 History of Present illness Narrative* Rudy [...] for internal providers or letter via the [employer] for external providers. HPI: Jun [...] CKD (chronic kidney disease) Dialysis T//Sat @ [facility], Home hemodialysis since 09/2019 Diverticulosis [...] 12/25/21 TIME: 3:56 PM documented in this encounterFlower Hospital01-31-2020 History of Present illness Narrative* Miracle Jaramillo RN - 10/27/2019 9:00 PM EST Patient left via wheelchair with family member. Pt left with all of documented belongings. * Blane Lei RN - 10/27/2019 2:30 PM EST Patient Name: Glenn Snyder Patient : 1965 Acct: [id number] Date of Admission: 10/19/2019 Room/Bed: [facility] [...] (Bicarb): 35 Na+ Modeling: Not Applicable Dialyzer: [id number] Dialysate Temperature (C): 36 Blood Flow Rate [...] - Before each treatment: Dialysis Machine No.: [id number] RO Machine No.: [id number] Dialyzer Lot No.: [id number] RO Machine Log Sheet Completed: Yes Machine Alarm Self Test: Completed;Passed (10/27/19 1410) Machine Autotest: Completed, Passed Air Foam Detector: Tested, Proper Function, pH Reading Extracorporeal Circuit Tested for Integrity: Yes Machine Conductivity: 13.9 Manual Conductivity: 13.7 Machine Ph: 7 Manual Ph: 7 Bleach Test (Neg): Yes Bath Temperature: 96.8 F (36 C) Tubing Lot#: [id number] Conductivity Meter Serial #: [id number] All Connections Secure?: Yes Venous Parameters Set?: [...] Pedraza MD - 10/27/2019 11:26 AM EST [facility] Progress Note SUBJECTIVE: Glenn [...] Diagnosis Date Noted Acute renal failure (ARF) ([facility]) 10/19/2019 ASSESSMENT/PLAN: 1. BLOSSOM . Pt likely has CKD at baseline. No previous Cr values to compare. CKD could be from HTN induced nephrosclerosis VS GN since the patient has h/o proteinuria /hematuria since 2000 but he never had kidney Bx and never saw sugar mill worker before BLOSSOM might be from CKD progression [...] . Pt is likely ESRD. Pt on [facility] HD schedule. Last HD session 10/25 Next HD session today Pt has HD spot at [facility]. 2- Hyperkalemia: resolved with HD 3-high anion gap acidosis likely from CKD and BLOSSOM Resolved with HD 4- Hyperphosphatemia: Continue Phosphorus binder 5- HTN: Improved with HD. Continue same BP meds Monitor BP Ok to d/c patient from nephro stand point Will continue to follow Please call if any question at [phone] JEANA PEDRAZA MD 10/27/2019 11:26 AM * Jeana Pedraza MD - 10/26/2019 4:25 PM EST [facility] Progress Note SUBJECTIVE: Glenn [...] never had kidney Bx and never saw sugar mill worker before BLOSSOM might be from CKD progression [...] follow Please call if any question at [phone] JEANA PEDRAZA MD 10/26/2019 4:25 PM * Kimber Bajwa RN - 10/26/2019 10:46 AM EST Patient returned from renal biopsy. VSS, see record. Bandaide is dry and intact to right flank area. Patient instructed on need for bedrest until 12:45. * Darell Sanches DO - 10/26/2019 8:19 AM EST Hospitalist Progress Note 10/26/2019 8:19 AM [phone]: Please page me ([phone]) for patient care issues. [phone]: Please page [facility] night Hospitalist for any issues. [...] lab Plan -daily weights, I&Os, dialysis per sugar mill worker -renal biopsy and dialysis cath pending, sugar mill worker following -am labs, replace lytes prn -increase activity -DVT prophylaxis: [] Lovenox [x] Heparin [] SCDs [x] Encourage ambulation [] Already on Anticoagulation Advance Directive: Full Code Discharge planning: Awaiting dialysis cath and renal biopsy. Can be discharge once outpatient dialysis arrangements have been made Darell Sanches DO Division of Hospitalist Medicine Inpatient Medical Services PAGER: [phone] * Ivett Cope RN - 10/25/2019 4:23 [...] and discharge needs Received a call from [employer] regarding pt dialysis chair spot. Was informed [...] 5. Fluid Accumulation-No significant fluid accumulation, 6. Pull Tab Dealer Strength-Normal Nutrition Risk Level: High Nutrient Needs: Estimated Daily Total Kcal: 2981-2392 Estimated Daily Protein (g): 60-90 Estimated Daily Total Fluid (ml/day): per md Nutrition Diagnosis: Problem: Altered nutrition-related lab values, Predicted suboptimal energy intake, Increased nutrient needs Etiology: related to Renal dysfunction ? Signs and symptoms: as evidenced by Known losses from dialysis, Weight loss, Lab values Objective Information: Nutrition-Focused Physical Findings: appetite improved, no edema, bun 39 , creat 9.71, wbc11.4utmxq0.3,on renvela tid- NO DRY WT EST. off [...] kg)(summer 2018) % Weight Change: , na Kimmell Body Wt: 166 lb (75.3 kg), % Kimmell Body 121 Adjusted Body Wt: , body [...] EST Hospitalist Progress Note 10/25/2019 5:02 PM [phone]: Please page me ([phone]) for patient care issues. [phone]: Please page [facility] night Hospitalist for any issues. [...] lab Plan -daily weights, I&Os, dialysis per sugar mill worker -renal biopsy and dialysis cath pending, sugar mill worker following -am labs, replace lytes prn -increase activity -DVT prophylaxis: [] Lovenox [x] Heparin [] SCDs [x] Encourage ambulation [] Already on Anticoagulation Advance Directive: Full Code Discharge planning: awaiting dialysis cath and renal biopsy Darell Sanches DO [email or web address] Medicine Inpatient Medical Services PAGER: [phone] * Ramon Mei RN - 10/25/2019 11:46 AM EST Patient Name: Glenn Snyder Patient : 1965 Acct: [id number] Date of Admission: 10/19/2019 Room/Bed: [address] [place] [address] Code Status: Full Code Allergies: Allergies Allergen [...] (Bicarb): 35 Na+ Modeling: Not Applicable Dialyzer: [id number] Dialysate Temperature (C): 36 Blood Flow Rate [...] - Before each treatment: Dialysis Machine No.: [id number] RO Machine No.: [id number] Dialyzer Lot No.: [id number] RO Machine Log Sheet Completed: Yes Machine Alarm Self Test: Completed;Passed (10/25/19 1120) Machine Autotest: Completed, Passed Air Foam Detector: Tested, Proper Function, pH Reading Extracorporeal Circuit Tested for Integrity: Yes Machine Conductivity: 14 Manual Conductivity: 14.1 Machine Ph: 7 Manual Ph: 7 Bleach Test (Neg): Yes Bath Temperature: 96.8 F (36 C) Tubing Lot#: [id number] Conductivity Meter Serial #: [id number] All Connections Secure?: Yes Venous Parameters Set?: [...] for Communication: Evaluate (10/25/191244) Provider Name: Keila (10/25/191244) Provider Notification: Physician (10/25/191244) Method of Communication: [...] Pedraza MD - 10/25/2019 7:58 AM EST [facility] Progress Note SUBJECTIVE: Glenn [...] never had kidney Bx and 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 [phone]: Please page [facility] night Hospitalist for any [...] lab Plan -daily weights, I&Os, dialysis per sugar mill worker -renal biopsy and dialysis cath pending, sugar mill worker following -am labs, replace lytes prn -increase activity -DVT prophylaxis: [] Lovenox [x] Heparin [] SCDs [x] Encourage ambulation [] Already on Anticoagulation Advance Directive: Full Code Discharge planning: ok to discharge today pending renal biopsy and dialysis cath placement Darell Sanches DO Division of Hospitalist Medicine Inpatient Medical Services PAGER: [phone] * Ivett Cope RN - 10/24/2019 10:48 AM EST Microbiology called, pt has 3x blood cultures drawn on 10/19. One came back with Gram positive rods.[employer] message sent to [facility] Dr Sanches regarding results * [...] never had kidney Bx and never saw sugar mill worker before BLOSSOM might be from CKD progression [...] follow Please call if any question at [phone] JEANA PEDRAZA MD 10/24/2019 9:15 AM * Radha Foreman RN - 10/23/2019 7:21 PM EST Patient Name: Glenn Snyder Patient : 1965 Acct: [id number] Date of Admission: 10/19/2019 Room/Bed: 222/2225 Code [...] (Bicarb): 35 Na+ Modeling: Not Applicable Dialyzer: [id number] Dialysate Temperature (C): 35 Blood Flow Rate [...] - Before each treatment: Dialysis Machine No.: [id number] RO Machine No.: [id number] Dialyzer Lot No.: [id number] RO Machine Log Sheet Completed: Yes Machine Alarm Self Test: Completed;Passed (10/23/19 1710) Machine Autotest: Completed, Passed Air Foam Detector: Tested, Proper Function, pH Reading Extracorporeal Circuit Tested for Integrity: Yes Machine Conductivity: 13.7 Manual Conductivity: 13.6 Machine Ph: 7 Manual Ph: 7 Bleach Test (Neg): Yes Bath Temperature: 95 F (35 C) Tubing Lot#: [id number] Conductivity Meter Serial #: [id number] All Connections Secure?: Yes Venous Parameters Set?: [...] minutes from secondary) Comment", 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 Access Flows [...] Patel MD - 10/23/2019 4:54 PM EST [facility] Progress Note SUBJECTIVE: Glenn [...] Diagnosis Date Noted Acute renal failure (ARF) ([facility]) 10/19/2019 ASSESSMENT/PLAN: 1. Renal failure, most likely chronic. Discussed with patient in detail. 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 Currently not working. 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 Apparently he was admitted at a hospital in [place] about 5 years ago and had cystoscopy [...] EST Hospitalist Progress Note 10/23/2019 5:02 PM [phone]: Please page me ([phone]) for patient care issues. [phone]: Please page [facility] night Hospitalist for any issues. [...] anemia Plan -daily weights, I&Os, dialysis per sugar mill worker -renal biopsy and temp dialysis cath pending, sugar mill worker to arrabge -am labs, replace lytes prn -increase activity -DVT prophylaxis: [] Lovenox [x] Heparin [] SCDs [x] Encourage ambulation [] Already on Anticoagulation Advance Directive: Full Code Discharge planning: likely discharge in next 24 hours Darell Sanches DO Division of Hospitalist Medicine Inpatient Medical Services PAGER: [phone] * Darell Sanches DO - 10/22/2019 2:17 PM EST Hospitalist Progress Note 10/22/2019 2:17 PM [phone]: Please page me ([phone]) for patient care issues. [phone]: Please page [facility] night Hospitalist for any issues. Subjective: Admit Date: 10/19/2019 PCP: No primary care provider on file. Room#: 357/2577 Interval History: No overnight issues. Denies chest [...] anemia Plan -daily weights, I&Os, dialysis per sugar mill worker -discussed with patient and he is willing to have the renal bx done. Will notify sugar mill worker -am labs, replace lytes prn -increase activity -DVT prophylaxis: [] Lovenox [x] Heparin [] SCDs [x] Encourage ambulation [] Already on Anticoagulation Advance Directive: Full Code Discharge planning: likely discharge in next 1-2 days after renal biopsy Darell Sanches DO Division of Hospitalist Medicine Inpatient Medical Services PAGER: [phone] * Randolph Euceda MD - 10/22/2019 12:46 PM EST [facility] [address] [place] [address] Progress Note Subjective: Patient seen [...] no petechiae Data: Labs: Recent Labs 10/20/19 04010/20/19184610/21/19 0532 10/22/19 0430 WBC 9.0 -- -- [...] 4.3 CL 95* 94* 94* 95* CO2 24 26 25 28 GLUCOSE 102* 110* 103* 94 PHOS [...] 10/19/2019 Urine Culture: No components found for: LINDAINE Blood Culture: No components found for: CBLOOD, [...] EST Hospitalist Progress Note 10/21/2019 10:35 PM [phone]: Please page me ([phone]) for patient care issues. [phone]: Please page [facility] night Hospitalist for any [...] bolus, 20 mL, Intravenous, Once, Delon Jessica, PASSENGER FLAGMAN - ALCOHOL STILL OPERATOR hydrALAZINE (APRESOLINE) injection 10 mg, 10 mg, [...] of Hospitalist Medicine Inpatient Medical Services PAGER: [phone] * Randolph Euceda MD - 10/21/2019 1:44 PM EST [facility] [address] [place], [place] [id number] Progress Note Subjective: Patient seen and examined [...] Name: Glenn Snyder Patient : 1965 Acct: [id number] Date of Admission: 10/19/2019 Room/Bed: 222/2225 Code [...] HCO3 (Bicarb): 35 Na+ Modeling: NA Dialyzer: [id number] Dialysate Temperature (C): 36 Blood Flow Rate (BFR): 300 Dialysate Flow Rate (DFR): 600 Treatment Treatment Number: 3 Time On: 944 Time Off: 124 Treatment Goal: 2L Weight: 181 lb (82.1 [...] Regular Unlabored None (Room air) Expiratory wheezes Yoder Dry;Warm Distended;Rounded;Soft Audible Generalized 0 10/21/19 1300 0 3 Regular Unlabored None (Room air) Clear;Diminished Yoder Dry;Warm Distended;Rounded;Soft Active Generalized 0 Labs Recent [...] - Before each treatment: Dialysis Machine No.: [id number] RO Machine No.: [id number] Dialyzer Lot No.: [id number] RO Machine Log Sheet Completed: Yes Machine Alarm Self Test: Completed;Passed (10/21/19939) Machine Autotest: Completed, Passed Air Foam Detector: Tested, Proper Function, pH Reading Extracorporeal Circuit Tested for Integrity: Yes Machine Conductivity: 13.7 Manual Conductivity: 13.8 Machine Ph: 7 Manual Ph: 7 Bleach Test (Neg): Yes Bath Temperature: 96.8 F (36 C) Tubing Lot#: [id number] Conductivity Meter Serial #: [id number] All Connections Secure?: Yes Venous Parameters Set?: [...] Name: Glenn Snyder Patient : 1965 Acct: [id number] Date of Admission: 10/19/2019 Room/Bed: 222/2225 Code [...] (Bicarb): 35 Na+ Modeling: Not Applicable Dialyzer: [id number] Dialysate Temperature (C): 36 Blood Flow Rate [...] x3 Regular Unlabored None (Room air) Clear Yoder Dry;Warm Good Soft Active None 0 10/20/19 [...] - Before each treatment: Dialysis Machine No.: [id number] RO Machine No.: [id number] Dialyzer Lot No.: [id number] RO Machine Log Sheet Completed: Yes Machine Alarm Self Test: Completed;Passed (10/20/19 1525) Machine Autotest: Completed, Passed Air Foam Detector: Tested, Proper Function, pH Reading Extracorporeal Circuit Tested for Integrity: Yes Machine Conductivity: 13.6 Manual Conductivity: 13.6 Machine Ph: 7 Manual Ph: 7 Bleach Test (Neg): Yes Bath Temperature: 96.8 F (36 C) Tubing Lot#: [id number] Conductivity Meter Serial #: [id number] All Connections Secure?: Yes Venous Parameters Set?: [...] Pedraza MD - 10/20/2019 2:42 PM EST [facility] Progress Note SUBJECTIVE: Glenn [...] never had kidney Bx and never saw sugar mill worker before BLOSSOM might be from CKD progression [...] follow Please call if any question at [phone] JEANA PEDRAZA MD 10/20/2019 2:43 PM * [...] []Injected [x]Non-Injected / Pinnae [x]Normal []Other/ Dentitian []Ute Teeth []Dentures Oral Mucosa [x]Yoder [x]Moist []Dry/ Oral ETT []Present [x]Absent Neck: [...] [x]Absent/ GUAN ([x]RUE [x]RLE [x]LUE [x]LLE) Neurologic: [place] []Yes [x]No Corneal reflexes []Present []Absent / [...] Ordering Physician MD ENCARNACION MATTHEW Accession Number [id number] CPT4 Codes 30946 () Reason For Exam line placement/vascath Report [...] 5. Fluid Accumulation-No significant fluid accumulation, 6. Pull Tab Dealer Strength-Not measured Nutrition Risk Level: High Nutrient Needs: Estimated Daily Total Kcal: 1562-5528 Estimated Daily Protein (g): 60-90 Estimated Daily [...] Wt: (na) % Weight Change: , na Kimmell Body Wt: 166 lb (75.3 kg), % Kimmell Body 132 Adjusted Body Wt: , body [...] Name: Glenn Snyder Patient : 1965 Acct: [id number] Date of Admission: 10/19/2019 Room/Bed: [address] [place] [address] Code Status: No Order Allergies: No Known [...] (Bicarb): 40 Na+ Modeling: Not Applicable Dialyzer: [id number] Dialysate Temperature (C): 36 Blood Flow Rate [...] - Before each treatment: Dialysis Machine No.: [id number] RO Machine No.: [id number] Dialyzer Lot No.: [id number] RO Machine Log Sheet Completed: Yes Machine Alarm Self Test: Completed;Passed (10/19/19 1245) Machine Autotest: Completed, Passed Air Foam Detector: Proper Function, Tested, pH Reading Extracorporeal Circuit Tested for Integrity: Yes Machine Conductivity: 13.8 Manual Conductivity: 13.7 Machine Ph: 7 Manual Ph: 7 Bleach Test (Neg): Yes Bath Temperature: 96.8 F (36 C) Tubing Lot#: [id number] Conductivity Meter Serial #: [id number] All Connections Secure?: Yes Venous Parameters Set?: [...] to Education: Verbalized Understanding documented in this encounterSUMBiomoti Work Phone: [phone] Hospital course Narrative* Darell Sanches, - 10/27/2019 11:23 AM EST Hospitalist Discharge [...] to presentation. Admitted to ICU, seen by sugar mill worker and HD initiated. Stabilized and transferred out [...] Medications: Glenn Snyder Home Medication Instructions JOSE M:[id number] Printed on:10/27/19 2621 Medication Information amLODIPine (NORVASC) 5 MG tablet Take 1 tablet by mouth daily metoprolol tartrate (LOPRESSOR) 25 MG tablet Take 0.5 tablets by mouth 2 times daily sevelamer (RENVELA) 800 MG tablet Take 2 tablets by mouth 3 times daily (with meals) Recommended Follow-up: sugar mill worker In 3 weeks post hospital fu appt Brenton Mckeon MD [facility] [place] [phone] In 2 weeks post hospital fu appt Readmission Risk Risk of Unplanned Readmission: 15 Complexity of Follow up: ? Moderate Complexity: follow up within 7-14 calendar days (18983) ? Severe Complexity: follow up within 7 calendar days (91633) Follow up Testing, Pending results or Referrals [...] frame. Signed: Darell Sanches DO [email or web address]] Medicine Inpatient Medical Services 10/27/2019, 11:23 AM documented in this [facility] Work Phone: [phone] Hospital Discharge instructions* Discharge Instr - Activity* [...] at most local grocery stores, pharmacies, and Pharmaca-stores. ? If you have any questions about your diet or nutrition, call the hospital and ask for the dietitian. * Discharge Instr - Lab* Sophia Bai RN - 10/24/2019 2:21 PM EST [facility] [phone] offer services including medical, dental, [facility], behavioral health and a reduced-rate pharmacy. Fees are based on current income and family size. Please refer to your handout for additional information and all location options. [address] [place] [phone] Wednesday 8 AM 6 PM Wednesday 8 AM 2 PM Hemodialysis will be Wednesday, Wednesday and Wednesday at [facility] located at [address] [place] [address] or [phone] Please arrive at 9:45 am * Additional [...] through Care Everywhere. * Kidney Biopsy: Post-op ([place]) documented in this [facility] Work Phone: Evaluation note* Diagnosis Acute kidney injury (HCC)- Primary Acute kidney failure, unspecified Uncontrolled hypertension Unspecified essential hypertension Normocytic anemia Anemia, unspecified Angioedema, initial encounter Hyperkalemia Hyperpotassemia Metabolic acidosis Acidosis Rectal bleeding Hemorrhage of rectum and anus Acute renal failure (ARF) (HCC) Acute kidney failure, unspecified documented in this encounter [facility] Work Phone: Evaluation note* Diagnosis Acute blood loss anemia- Primary Acute posthemorrhagic anemia Rectal bleeding Hemorrhage of rectum and anus documented [facility] Diagnosis Other iron deficiency anemia- Primary Rectal bleeding Hemorrhage of rectum and anus documented in this encounter [facility] note* Diagnosis Skin sore- Primary ESRD (end stage renal disease) on dialysis (HCC) End stage renal disease [facility]* Diagnosis New onset a-fib (CMS/HCC) (HCC)- Primary Atrial fibrillation New onset a-fib (CMS/HCC) (HCC) Atrial fibrillation Atrial fibrillation, persistent (HCC) documented [facility] this encounter [facility]* Diagnosis Nonrheumatic aortic valve stenosis- Primary Paroxysmal A-fib (CMS/HCC) (HCC) Primary hypertension Unspecified essential hypertension Calcification of abdominal aorta (HCC) Tobacco abuse Tobacco use disorder ESRD on hemodialysis (CMS/HCC) (HCC) documented [facility] encounter [facility]* Diagnosis Personal history of nicotine dependence- Primary Nicotine dependence, cigarettes, uncomplicated documented [facility]* Diagnosis Paroxysmal A-fib (CMS/HCC) (HCC)- Primary [...] disorder in remission [facility] Diagnosis Paroxysmal A-fib [...] hemodialysis (CMS/HCC) (HCC) [facility]* Diagnosis Paroxysmal A-fib [...] chronicity, unspecified whether acute cor pulmonale present ([facility]) S/P AVR documented in this encounter [facility] [...] of abdominal surgery [facility]* Diagnosis Paroxysmal A-fib [...] pulmonale present (HCC) [facility]* Diagnosis Paroxysmal A-fib [...] to fungus (HCC) [facility]* Diagnosis Paroxysmal A-fib [...] aortic valve stenosis [facility]* Diagnosis Paroxysmal A-fib [...] aortic valve stenosis documented in this encounter [facility]* Diagnosis Paroxysmal A-fib (CMS/HCC) [...] not elsewhere classified documented in this encounter [facility]* Diagnosis Paroxysmal A-fib (CMS/HCC) [...] Primary Atrial fibrillation [facility] Diagnosis Paroxysmal A-fib [...] hypoxia (HCC) [J96.01] [facility]* Diagnosis Paroxysmal A-fib [...] Decubitus ulcer of sacral region, unstageable (HCC) MCC (current) use of antibiotics documented in this [...] in remission Acute respiratory failure with hypoxia ([facility]) [J96.01]- Primary 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] Tracheostomy status Pulmonary embolism, other, unspecified chronicity, unspecified whether acute cor pulmonale present ([facility]) [facility] [...] abuse Tobacco use disorder ESRD on hemodialysis ([facility]/HCC) (HCC) Paroxysmal A-fib (CMS/HCC) (HCC)- Primary Nonrheumatic aortic valve stenosis Tobacco abuse Tobacco use disorder Alcohol use disorder in remission RSV (acute bronchiolitis due to respiratory syncytial virus)- Primary Acute bronchiolitis due to respiratory syncytial virus (RSV) Tracheostomy dependence (HCC) Tracheostomy status Acute respiratory failure with hypoxia ([facility]) [J96.01] Leg DVT (deep venous thromboembolism), acute, left ([facility]) Pulmonary embolism, unspecified chronicity, unspecified pulmonary embolism type, unspecified whether acute cor pulmonale present ([facility]) S/P AVR [facility]* Diagnosis Paroxysmal A-fib (CMS/HCC) ([facility])- Primary Nonrheumatic aortic valve stenosis Primary hypertension Unspecified essential hypertension ESRD on hemodialysis ([facility]) ([facility]) Calcification of abdominal aorta (HCC) Tobacco abuse Tobacco use disorder Nonrheumatic aortic valve stenosis- Primary Paroxysmal A-fib ([facility]/HCC) ([facility]) Primary hypertension Unspecified essential hypertension Calcification of abdominal aorta (HCC) Tobacco abuse Tobacco use disorder ESRD on hemodialysis ([facility]) (HCC) Paroxysmal A-fib (CMS/HCC) (HCC)- Primary Nonrheumatic aortic valve stenosis Tobacco abuse Tobacco use disorder Alcohol use disorder in remission Tracheostomy dependence ([facility])- Primary Tracheostomy status ESRD on hemodialysis ([facility]/HCC) ([facility]) Ischemic ulcer of toe of left foot, 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) Sacral osteomyelitis (CMS/HCC) (HCC) Leukocytosis, unspecified type [facility]* Diagnosis Paroxysmal A-fib (CMS/HCC) (HCC)- Primary Nonrheumatic aortic valve stenosis Primary hypertension Unspecified essential hypertension ESRD on hemodialysis ([facility]/HCC) (HCC) Calcification of abdominal aorta (HCC) Tobacco abuse Tobacco use disorder Nonrheumatic aortic valve stenosis- Primary Paroxysmal A-fib (CMS/HCC) ([facility]) Primary hypertension Unspecified essential hypertension Calcification of abdominal aorta (HCC) Tobacco abuse Tobacco use disorder ESRD on hemodialysis (CMS/HCC) ([facility]) Paroxysmal A-fib ([facility]) ([facility])- Primary Nonrheumatic aortic valve stenosis Tobacco abuse Tobacco use disorder Alcohol use disorder in remission RSV (acute bronchiolitis due to respiratory syncytial virus)- Primary Acute bronchiolitis due to respiratory syncytial virus (RSV) Tracheostomy dependence (HCC) Tracheostomy status Pneumonia of both lungs due to methicillin susceptible Staphylococcus aureus (MSSA), unspecified part of lung ([facility]) Acute respiratory failure with hypoxia ([facility]) [J96.01] Nonrheumatic aortic valve stenosis Pulmonary embolism, unspecified chronicity, unspecified pulmonary embolism type, unspecified whether acute cor pulmonale present ([facility]) documented in this encounter [facility]* Diagnosis Paroxysmal A-fib ([facility]) ([facility])- Primary Nonrheumatic aortic valve stenosis Primary hypertension Unspecified essential hypertension ESRD on hemodialysis ([facility]) ([facility]) Calcification of abdominal aorta (HCC) Tobacco abuse Tobacco use disorder Nonrheumatic aortic valve stenosis- Primary Paroxysmal A-fib ([facility]) ([facility]) Primary hypertension Unspecified essential hypertension Calcification of abdominal aorta (HCC) Tobacco abuse Tobacco use disorder ESRD on hemodialysis ([facility]) ([facility]) Paroxysmal A-fib ([facility]) ([facility])- Primary Nonrheumatic aortic valve stenosis Tobacco abuse Tobacco use disorder Alcohol use disorder in remission Tracheostomy dependence ([facility])- Primary Tracheostomy status ESRD on hemodialysis ([facility]) ([facility]) MCC (current) use of antibiotics Decubitus ulcer of sacral region, unstageable (HCC) Sacral osteomyelitis ([facility]) ([facility]) documented in this encounter [facility]* Diagnosis Paroxysmal A-fib ([facility]) ([facility])- Primary Nonrheumatic aortic valve stenosis Primary hypertension Unspecified essential hypertension ESRD on hemodialysis ([facility]) ([facility]) Calcification of abdominal aorta (HCC) Tobacco abuse Tobacco use disorder Nonrheumatic aortic valve stenosis- Primary Paroxysmal A-fib ([facility]) ([facility]) Primary hypertension Unspecified essential hypertension Calcification of abdominal aorta (HCC) Tobacco abuse Tobacco use disorder ESRD on hemodialysis ([facility]) ([facility]) Paroxysmal A-fib ([facility]) ([facility])- Primary Nonrheumatic aortic valve stenosis Tobacco abuse Tobacco use disorder Alcohol use disorder in remission Acute respiratory failure with hypoxia ([facility]) [J96.01]- Primary RSV (acute bronchiolitis due to [...] Decubitus ulcer of sacral region, unstageable (HCC) MCC (current) use of antibiotics [facility] noteNo assessment information availableWMarymount Hospital Work Phone: Evaluation note* Diagnosis Paroxysmal [...] of right hand [facility] Diagnosis Paroxysmal A-fib (CMS/HCC) (HCC)- Primary [...] in remission Hemoptysis [facility]* Diagnosis Paroxysmal A-fib (CMS/HCC) (HCC)- Primary [...] Necrosis (HCC) Gangrene [facility] instructions* Instructions* Fabiola Huitron RN - [...] or dog food bags, or a vacuum curve cleaner. Your dressing will be removed at [...] call and ask for the Interventional Radiologist argon tester. Where can you learn more? Go to [email or web address] and sign in to your [employer] account. Enter P616 in the Search Health Information box to learn more about Hemodialysis Access: What to Expect at Home. If you do not have an account, please click on the "Sign Up Now" link. Current as of: August 12, 2016 Content Version: 11.2 9747-1008 [employer]. Care instructions adapted under license by [employer]. If youhave questions about a medical condition or this instruction, always ask your healthcare professional. [employer] disclaims any warranty or liability for your use of this information. [facility] Work Phone: Reason for referral (narrative)* Outpatient Procedure (Routine) - Authorized Specialty Diagnoses / Procedures Referred By Contac t Referred To Contact [facility] Diagnoses Acute blood loss anemia Rectal bleeding Procedures COLONOSCOPY DIAGNOSTIC COLONOSCOPY FLX DX W/COLLJ SPEC WHEN PFRMD Rudy Painter MD [address] [place] [address] [address] Referral ID Status Reason Start Date Expiration Date Visits Requested Visits Authorized [id number] Authorized Auto-Generat ed Referral 12/25/2021 12/25/2022 1 1 [facility] for referral (narrative)* Outpatient Procedure (Routine) - Authorized Specialty Diagnoses / Procedures Referred By Contac t Referred To Contact [facility] Diagnoses Other iron deficiency anemia Rectal bleeding Procedures COLONOSCOPY DIAGNOSTIC COLONOSCOPY FLX DX W/COLLJ SPEC WHEN PFRMD Rudy Painter MD [address] [facility] [place] [address] [address] Referral ID Status Reason Start Date Expiration Date Visits Requested Visits Authorized [id number] Authorized Auto-Generat ed Referral 12/30/2021 12/30/2022 1 1 [facility] for referral (narrative)* Consultation (Routine) - Pending Review Specialty Diagnoses / Procedures Referred By Contac t Referred To Contact Wound Care Diagnoses Skin sore Procedures [place] OFFICE/OUTPATIENT NEW HIGH MDM 60-74 MINUTES Jese Frank MD [address] [place] [address] S[address] Op Wnd Ostomy [address] [place] [address] Referral ID Status Reason Start Date Expiration Date Visits Requested Visits Authorized [id number] Pending Review Specialty Services Required 05/01/2023 04/30/2024 1 1 [facility] for referral (narrative)No reason for referral information availableWooster Community Hospital Work Phone: Reason for visit Narrative* Auth/Cert (Routine) Specialty Diagnoses / Procedures Referred By Manny dodd Referred To Contact Diagnoses Atrial flutter, unspecified type (HCC) Procedures . Ramón Romano MD [address] [place] [address] Phone: tel: fax: [facility] [address] [place] [address] Phone: tel: Referral ID Status Reason Start Date Expiration Date Visits Re quested Visits Authorized [id number] 1 1 [facility] N[facility]* Imaging (Routine) - Closed Specialty Diagnoses / Procedures Referred By Manny dodd Referred To Contact Radiology Diagnoses Hemoptysis Procedures CT chest wo IV contrast Elly Jett MD [address] [place] [address] Phone: tel: fax: [facility] [address] [facility] [address] [place] [address] Phone: tel: fax: Referral ID Status Reason Start Date Expiration Date Visits Re quested Visits Authorized [id number] Closed 02/23/2025 02/23/2026 1 1 [facility] Assessments Diagnosis Chronic kidney disease, stage V [...] Documents on File Type Date Recorded Patient House Carpenter Expl anation Advance Directive(s) 11/22/2020 11:20 AM Advance Directive(s) 06/12/2020 8:15 AM Advance Directive(s) 03/20/2020 7:16 AM Documents on File Type Date Recorded Patient House Carpenter Expl anation Advance Directive(s) 11/22/2020 11:20 AM Advance Directive(s) 06/12/2020 8:15 AM Advance Directive(s) 03/20/2020 7:16 AM Documents on File Type Date Recorded Patient House Carpenter Expl anation Power of Engineering Executive 02/14/2023 1:37 PM Advance Directives and Livin g Will 02/14/2023 1:37 PM Documents on File Type Date Recorded Patient House Carpenter Expl anation Power of Engineering Executive 02/14/2023 1:37 PM Advance Directives and Livin [...] Documents on File Type Date Recorded Patient House Carpenter Expl anation Advance Directives and Livin g Will 10/03/2024 11:27 AM Power of Engineering Executive 02/14/2023 1:37 PM Advance Directives and Livin g Will 02/14/2023 1:37 PM Date Activated Date Inactivated Comments 10/03/2024 6:19 PM Date Activated Date Inactivated Comments 08/17/2023 12:04 AM 08/17/2023 5:18 PM Documents on File Type Date Recorded Patient House Carpenter Expl anation Advance Directives and Livin g Will 10/03/2024 11:27 AM Power of Engineering Executive 02/14/2023 1:37 PM Advance Directives and Livin [...] Communication Moar Lillian Child Health Care Agent Date Activated [...] Documents on File Type Date Recorded Patient House Carpenter Expl anation Power of Engineering Executive 01/24/2025 12:29 PM Advance Directives and Livin g Will 10/03/2024 11:27 AM Power of Engineering Executive 02/14/2023 1:37 PM Advance Directives and Livin [...] Health Care Agent Toma Tarun Partner First [facility] Health Care Agent Documents on File Type Date Recorded Patient House Carpenter Expl anation Power of Engineering Executive 01/24/2025 12:29 PM Advance Directives and Livin g Will 10/03/2024 11:27 AM Power of Engineering Executive 02/14/2023 1:37 PM Advance Directives and Livin [...] [place] Partner First Alternate Health Care Agent Documents on File Type Date Recorded Patient House Carpenter Expl anation Power of Engineering Executive 01/24/2025 12:29 PM Omar Lillian Advance Directives and Livin g Will 10/03/2024 11:27 AM Power of Engineering Executive 02/14/2023 1:37 PM Advance Directives and Livin [...] Omar Lillian Child Health Care Agent Toma Count Includes [facility] Alternate Health Care Agent Healthcare Agents on File Name Relationship Healthcare Agent Relationshi p Communication Omar Lillian Child Health Care Agent Toma Count Includes [facility] Alternate Health Care Agent Documents on File Type Date Recorded Patient House Carpenter Expl anation Power of Engineering Executive 01/24/2025 12:29 PM Omar Lillian Advance Directives and Livin g Will 10/03/2024 11:27 AM Power of Engineering Executive 02/14/2023 1:37 PM Advance Directives and Livin [...] CT lung screening low dose Fransisco Pineda, PASSENGER FLAGMAN [address] [place] [address] Referral ID Status Reason Start Date Expiration Date V isits Requested Visits Authorized [id number] Authorized 09/07/2023 09/06/2024 1 1 Chief Complaint and Reason for Visit Chief Complaint Admit Date LABWORK February 05, 2025 5:56a m Chief Complaint Admit Date LABWORK February 05, 2025 5:56a m LABOWRK February 07, 2025 5:00a m PRISON LAB WORK February 15, 2025 5:0 0am PRISON LAB WORK February 20, 2025 4:0 0am Chief Complaint Admit Date LABWORK February 05, 2025 5:56a m LABOWRK February 07, 2025 5:00a m Chief Complaint Admit Date LABWORK February 05, 2025 5:56a m LABOWRK February 07, 2025 5:00a m PRISON LAB WORK February 08, 2025 5:0 0am PRISON LAB WORK February 12, 2025 5:0 0am PRISON LAB WORK February 13, 2025 5:0 0am PRISON LAB WORK February 15, 2025 5:0 0am PRISON LAB WORK February 20, 2025 4:0 0am Additional Source Comments Source Comments (unrecognize d section and content) In the event this informatio n is protected by the Federal Confidentiality of Alcohol and Drug Abuse Patient Records regulations: The Federal rules restrict any use of the information to criminally investigate or prosecute any alcohol or drug abuse patient.[facility] HospitalIn the event this information is protected by the Federal Confidentiality of Alcohol and Drug Abuse Patient Records regulations: The Federal rules restrict any use of the information to criminally investigate or prosecute any alcohol or drug abuse patient.[facility] HospitalIn the event this information is protected by the Federal Confidentiality of Alcohol and Drug Abuse Patient Records regulations: The Federal rules restrict any use of the information to criminally investigate or prosecute any alcohol or drug abuse patient.[facility] HospitalIn the event this information is protected by the Federal Confidentiality of Alcohol and Drug Abuse Patient Records regulations: The Federal rules restrict any use of the information to criminally investigate or prosecute any alcohol or drug abuse patient.[facility] HospitalIn the event this information is protected by the Federal Confidentiality of Alcohol and Drug Abuse Patient Records regulations: The Federal rules restrict any use of the information to criminally investigate or prosecute any alcohol or drug abuse patient.[facility] HospitalIn the event this information is protected by the Federal Confidentiality of Alcohol and Drug Abuse Patient Records regulations: The Federal rules restrict any use of the information to criminally investigate or prosecute any alcohol or drug abuse patient.[facility] HospitalIn the event this information is protected by the Federal Confidentiality of Alcohol and Drug Abuse Patient Records regulations: The Federal rules restrict any use of the information to criminally investigate or prosecute any alcohol or drug abuse patient.[facility] HospitalIn the event this information is protected by the Federal Confidentiality of Alcohol and Drug Abuse Patient Records regulations: The Federal rules restrict any use of the information to criminally investigate or prosecute any alcohol or drug abuse patient.[facility] (unrecognized sect ion and content) No Status Records FoundNo Status Records FoundNo Status Records FoundNo Status Records FoundNo Status Records FoundNo Status Records Found INFORMATION SOURCE (unrecogn ized section and content) DATE CREATED AUTHOR 11/26/2020 [facility] DATE CREATED AUTHOR AUTHOR'S ORGANIZ ATION 09/18/2021 [employer] [facility] DATE CREATED AUTHOR AUTHOR'S ORGANIZ ATION 12/18/2022 [facility] DATE CREATED AUTHOR AUTHOR'S ORGANIZ ATION 04/16/2024 [facility] DATE CREATED AUTHOR AUTHOR'S ORGANIZ ATION 04/21/2025 [employer] [facility] DATE CREATED AUTHOR AUTHOR'S ORGANIZ ATION 04/23/2025 [facility] Continuous Active and Recently Administ ered Medications (unrecognized section and content) Medication Order 09/13/2021 09/14/2021 09/15/2021 0.9 % sodium chloride infusion IntraVENous, at 50 mL/hr, CONTINUOUS, Starting on 09/15/21 at 0945, Pre-op (day of surgery) 0955 ([facility] ider: Marjorie Menjivar RN) PRN Medication Order 09/13/2021 09/14/2021 09/15/2021 lidocaine PF 1 % injection (COMPLETED) ONCE PRN, Starting on 09/15/21 at 1048, For 1 dose 1048 (Given - Provid er: Brenton Vicente MD) Scheduled Medication Order 04/29/2023 04/30/2023 05/01/2023 gelatin absorbable (Gelfoam) sponge 1 each (COMPLETED) 1 each, Apply externally, Once, On Wed05/01/23 at 2020, For 1 dose 2019 (Given - Provid er: Sony Dacosta, SWEETIE) Scheduled Medication Order 08/15/2023 08/16/2023 08/17/2023 apixaban [...] sodium chloride 0.9 % 100 mL IVPB (Add[place]) 3,000 mg, IntraVENous, at 200 mL/hr, Administer over 30 Minutes, Every 24 hours, First dose on Brigid 01/25/25 at 1700, ADD-[place] bag, Suspected Indication (Select all that apply): [...] sodium chloride 0.9 % 100 mL IVPB (Add-[place]) (CANCELED) 3,000 mg, IntraVENous, at 200 mL/hr, Administer over 30 Minutes, Every 24 hours, First dose on Brigid 02/01/25 at 1030, For 13 days, ADD[place] bag, Suspected Indication (Select all that apply): Skin and Soft Tissue Infection 1051 (New Bag - Provider: Kristine Donato RN)1136 (Stopped - Provider: Kristine Donato RN) chlorhexidine (Hibiclens) 4 % solution Topical, Daily, First dose on Brigid 02/01/25 at 1400 1341 (Given - Provider: Kristine [...] 1038 (Medication Applied - Provider: Miriam Reza RN)220 (Medication Removed - Provider: Casandra Rose RN) [...] Jun Borrero MD) lidocaine-EPINEPHrine (Xylocaine W/EPI) 1 %-1:[id number] injection (COMPLETED) As needed, Starting on Wed01/30/25 [...] pupils, Starting on Wed01/19/25 at 0614, +++notify argon tester provider if used+++ oxyCODONE (Roxicodone) immediate release tablet 10 mg(Linked Group 1) 10 mg, Oral, Every 6 hours PRN, severe pain (7-10), Starting on Wed01/23/25 at 1312 1038 (Given - Provider: Miriam Reza, SWEETIE) oxyCODONE (Roxicodone) immediate release tablet 5 mg(Linked Group 1) 5 mg, Oral, Every 6 hours PRN, moderate pain (4-6), Starting on Wed01/23/25 at 1312 1038 (See Alternative - Provider: Miriam Reza, RN) prochlorperazine (Compazine) injection 5 mg 5 [...] Johnson, SWEETIE) 0913 (Given - Provider: Tyson Freeman RN) dextrose [...] dr hurtado)2119 (Given - Provider: Rudolph Najera, RN) 0831 (Given - Provider: Ochoa Johnson, RN)2123 (Given - Provider: Rosio Bey RN) 0913 (Given - Provider: Tyson Freeman RN) pantoprazole [...] Arnold RN)0213 (New Bag - Provider: Ave Arnold, SWEETIE)0530 (Stopped - Provider: Ave Arnold, RN)0825 (New [...] Nightly, First dose (after last modification) on Wed02/24/25 at 2200 2120 (Given - Provider: Rudolph [...] Ave Arnold RN)1501 (Rate/Dose Verify - Provider: Shatsa Sinclair RN)1914 (Handoff - Provider: Shasta Sinclair RN) 0203 (Rate/Dose Verify - Provider: Rudolph Najera RN)0204 (New Bag - Provider: Rudolph Najera, SWEETIE)0727 (Handoff - Provider: Ochoa Johnson, SWEETIE)1032 (Handoff - Provider: Ochoa Johnson RN)1920 (Handoff - Provider: Susanna Jackson, RN) 0222 (New Bag - Provider: Rosio Bey, SWEETIE)0433 (Rate/Dose Change - Provider: Rosio Bey, SWEETIE)0719 (Stopped - Provider: Susanna Jackson RN) PRN [...] at 0713 0755 (Given - Provider: Lazaro Anaay) melatonin tablet 3 mg 3 mg, Oral, Nightly PRN, sleep, Starting on Wed02/21/25 at 0023 naloxone (Narcan) injection 0.4 mg 0.4 mg, IntraVENous, Every 5 min PRN, opioid reversal, respiratory depression, Starting on Wed02/21/25 at 0024, +++ For RR <10, pinpoint pupils, over sedation for opioid reversal - MUST notify argon tester provider immediately after first dose, may give [...] 2100 1011 (Given - Provider: Whitney Dobbins, RN)2102 (Given - Provider: Rosio Bey, SWEETIE) 0936 (Given - Provider: Whitney Dobbins, SWEETIE)2123 (Given - Provider: Mir Cannon, SWEETIE) 0843 (Given - Provider: Christopher Chen, SWEETIE) [...] (COMPLETED) 7.5 mg, Oral, Once Warfarin, On 03/19/25 at 1700, For 1 dose 1639 (Given - Provider: Whitney Dobbins RN) warfarin (Coumadin) tablet 7.5 mg (COMPLETED) 7.5 mg, Oral, Once Warfarin, On Tu03/20/25 at 1700, For 1 dose 1643 (Given [...] at this time)1643 (Rate/Dose Verify - Provider: Wihtney Dobbins RN)1827 (Rate/Dose Verify - Provider: Whitney [...] Care Teams (unrecognized sec tion and content) Cardiology Clinical Nurse Specialist Relationship Specialty Start Date End Date Daryn Loomis MD [address] [place] [address] [place] [address] PCP - General Family Medicine 12/18/20 Cardiology Clinical Nurse Specialist Relationship Specialty Start Date End Date Candido Starr MD [address] [address] Nephrology 02/22/20 Cardiology Clinical Nurse Specialist Relationship Specialty Start Date End Date Candido Starr MD [address] [address] Nephrology 02/22/20 Cardiology Clinical Nurse Specialist Relationship Specialty Start Date End Date Candido Starr MD [address] [address] Nephrology 02/22/20 Cardiology Clinical Nurse Specialist Relationship Specialty Start Date End Date Daryn Loomis MD [address] [place] [address] [facility] [place] [address] PCP - General 12/18/20 Cardiology Clinical Nurse Specialist Relationship Specialty Start Date End Date Daryn Loomis MD Count includes the [facility] [place] [address] PCP - General 12/18/20 Cardiology Clinical Nurse Specialist Relationship Specialty Start Date End Date Daryn Loomis MD Count includes the [facility] [place] [address] PCP - General 12/18/20 Cardiology Clinical Nurse Specialist Relationship Specialty Start Date End Date Daryn Loomis MD Count includes the [facility] [place] [address] PCP - General 12/18/20 Cardiology Clinical Nurse Specialist Relationship Specialty Start Date End Date Daryn Loomis MD Count includes the [facility] [place] [address] PCP - General 12/18/20 Cardiology Clinical Nurse Specialist Relationship Specialty Start Date End Date Daryn Loomis MD Count includes the [facility] [place] [address] PCP - General 12/18/20 Cardiology Clinical Nurse Specialist Relationship Specialty Start Date End Date Daryn Loomis MD Count includes the [facility] [place] [address] PCP - General 12/18/20 Cardiology Clinical Nurse Specialist Relationship Specialty Start Date End Date Daryn Loomis MD Count includes the [facility] [place] [address] PCP - General 12/18/20 Cardiology Clinical Nurse Specialist Relationship Specialty Start Date End Date Candido Starr MD [address] [place] [phone] Nephrology 02/22/20 Cardiology Clinical Nurse Specialist Relationship Specialty Start Date End Date Candido Starr MD [address] [place] [phone] Nephrology 02/22/20 Cardiology Clinical Nurse Specialist Relationship Specialty Start Date End Date Daryn Loomis MD [address] [place] [address] PCP - General 12/18/20 Cardiology Clinical Nurse Specialist Relationship Specialty Start Date End Date Leilani Troncoso [address] [place] [address] PCP - General Family Medicine 10/03/24 Cardiology Clinical Nurse Specialist Relationship Specialty Start Date End Date Leilani Troncoso [address] [place] [phone] PCP - General Family Medicine 10/03/24 Cardiology Clinical Nurse Specialist Relationship Specialty Start Date End Date Leilani Troncoso [address] [place] [phone] PCP - General Family Medicine 10/03/24 Cardiology Clinical Nurse Specialist Relationship Specialty Start Date End Date Leilani Troncoso [address] [place] [phone] PCP - General Family Medicine 10/03/24 Cardiology Clinical Nurse Specialist Relationship Specialty Start Date End Date Leilani T[address]coso [address] [place] [address] PCP - General Family Medicine 10/03/24 Cardiology Clinical Nurse Specialist Relationship Specialty Start Date End Date Leilani Troncoso [address] [place] [address] PCP - General Family Medicine 10/03/24 Cardiology Clinical Nurse Specialist Relationship Specialty Start Date End Date Leilnai Troncoso [address], [facility] PCP - General Family Medicine 10/03/24 Cardiology Clinical Nurse Specialist Relationship Specialty Start Date End Date Leilani Troncoso [address], [phone] PCP - General Family Medicine 10/03/24 Cardiology Clinical Nurse Specialist Relationship Specialty Start Date End Date Leilani Troncoso [address], [phone] PCP - General Family Medicine 10/03/24 Cardiology Clinical Nurse Specialist Relationship Specialty Start Date End Date Leilani Troncoso [address], [phone] PCP - General Family Medicine 10/03/24 Cardiology Clinical Nurse Specialist Relationship Specialty Start Date End Date Leilani Troncoso [address], [phone] PCP - General Family Medicine 10/03/24 Cardiology Clinical Nurse Specialist Relationship Specialty Start Date End Date Leilani Troncoso [address] [place] [phone] PCP - General Family Medicine 10/03/24 Cardiology Clinical Nurse Specialist Relationship Specialty Start Date End Date Leilani Troncoso [address] [place] [phone] PCP - General Family Medicine 10/03/24 Cardiology Clinical Nurse Specialist Relationship Specialty Start Date End Date Leilani Troncoso [address] [place] [phone] PCP - General Family Medicine 10/03/24 Cardiology Clinical Nurse Specialist Relationship Specialty Start Date End Date Leilani Troncoso [address], [phone] PCP - General Family Medicine 10/03/24 Cardiology Clinical Nurse Specialist Relationship Specialty Start Date End Date Leilani Troncoso [address] [place] [address] PCP - General Family Medicine 10/03/24 Cardiology Clinical Nurse Specialist Relationship Specialty Start Date End Date Leilani Troncoso [address] [place] [phone] PCP - General Family Medicine 10/03/24 Cardiology Clinical Nurse Specialist Relationship Specialty Start Date End Date Leilani Troncoso [address] [place] [phone] PCP - General Family Medicine 10/03/24 Cardiology Clinical Nurse Specialist Relationship Specialty Start Date End Date Leilani Troncoso [address] [place] [phone] PCP - General Family Medicine 10/03/24 Cardiology Clinical Nurse Specialist Relationship Specialty Start Date End Date Leilani Troncoso [address] [place] [phone] PCP - General Family Medicine 10/03/24 Cardiology Clinical Nurse Specialist Relationship Specialty Start Date End Date Leilani Troncoso [address] [place] [phone] PCP - General Family Medicine 10/03/24 Cardiology Clinical Nurse Specialist Relationship Specialty Start Date End Date Leilani Troncoso [address] [place] [phone] PCP - General Family Medicine 10/03/24 Cardiology Clinical Nurse Specialist Relationship Specialty Start Date End Date Leilani Troncoso [address] [place] [phone] PCP - General Family Medicine 10/03/24 Cardiology Clinical Nurse Specialist Relationship Specialty Start Date End Date Leilani Troncoso [address] [place] [phone] PCP - General Family Medicine 10/03/24 Cardiology Clinical Nurse Specialist Relationship Specialty Start Date End Date Leilani Troncoso [address] [place] [phone] PCP - General Family Medicine 10/03/24 Cardiology Clinical Nurse Specialist Relationship Specialty Start Date End Date Leilani Troncoso [address] [place] [phone] PCP - General Family Medicine 10/03/24 Team [...] Attending Provider Active Start: February 20, 2025 Cardiology Clinical Nurse Specialist Relationship Specialty Start Date End Date AbaLeilani gore [address] [place] [phone] PCP - General Family Medicine 10/03/24 Cardiology Clinical Nurse Specialist Relationship Specialty Start Date End Date AbaLeilani ramos [address] [place] [address] PCP - General Family Medicine 10/03/24 Cardiology Clinical Nurse Specialist Relationship Specialty Start Date End Date AbaLeilani ramos [address] [place] [phone] PCP - General Family Medicine 10/03/24 Cardiology Clinical Nurse Specialist Relationship Specialty Start Date End Date AbaLeilani ramos [address] [place] [address] PCP - General Family Medicine 10/03/24 Cardiology Clinical Nurse Specialist Relationship Specialty Start Date End Date Aba, Leilani [address] [place] [phone] PCP - General [facility] Medicine 10/03/24 Cardiology Clinical Nurse Specialist Relationship Specialty Start Date End Date Leilani Troncoso [address] [place] [phone] PCP - General [facility] Medicine 10/03/24 Team Status: Inactive Member Role [...] February 20, 2025 End: February 20, 2025 Cardiology Clinical Nurse Specialist Relationship Specialty Start Date End Date Leilani Troncoso [address] [place] [phone] PCP - [facility] Medicine 10/03/24 Team Status: Inactive Member Role/Relationship [...] February 12, 2025 End: February 12, 2025 Cardiology Clinical Nurse Specialist Relationship Specialty Start Date End Date Leilani Troncoso [address] [place] [address] PCP - General Family Medicine 10/03/24 Cardiology Clinical Nurse Specialist Relationship Specialty Start Date End Date Leil[place] [address] PCP - General Family Medicine 10/03/24 Cardiology Clinical Nurse Specialist Relationship Specialty Start Date End Date Leilani Troncoso [address] [place] [address] PCP - General Family Medicine 10/03/24 Cardiology Clinical Nurse Specialist Relationship Specialty Start Date End Date Leilani Troncoso [address] [place] [address] PCP - General Family Medicine 10/03/24 Cardiology Clinical Nurse Specialist Relationship Specialty Start Date End Date Leilani Troncoso [address] [place] [address] PCP - General Family Medicine [...] (CMS/HCC) (HCC) Procedures . Earlene Irving MD [address] [facility] [place] [address] [facility] Emergency Dept [address] [place] [address] Referral ID Status Reason Start Date Expiration Date Visits Re quested Visits Authorized [id number] 1 1 Reason Onset Date Comments Cancelled [...] (HCC) Procedures . Bruce Nguyen MD [address] [place] [address] Phone: tel: fax: [facility] Medical Intensive Care Unit MICU [address] [place] [address] Phone: tel: Referral ID Status Reason Start Date Expiration Date Visits Re quested Visits Authorized [id number] 1 1 Reason Onset Date Comments Anticoagulation [...] was bright red and it stopped just [employer] when in transport. Specialty Diagnoses / Procedures Referred By Contac t Referred To Contact Diagnoses Hemoptysis Procedures . Bettye Pierre MD [address] [place] [address] Phone: tel: fax: [facility] Trauma Neuro Progressive Care Unit [address]U [address] [place] [address] Phone: tel: Referral ID Status Reason Start Date Expiration Date Visits Re quested Visits Authorized [id number] 1 1 Reason Onset Date Comments Appointment 02/23/2025 Reason Comments Shortness of Breath Pt arrived from [facility] via EMS. Pt was starting dialysis and feeling short of breath dialysis was stopped and sent to the hospital to be evaluated. Specialty Diagnoses / Procedures Referred By Contac t Referred To Contact Diagnoses SOB (shortness of breath) Procedures 0 Rubi Sanon MD [address] [place] [address] Phone: tel: fax: [facility] Cardiac Progressive Care Unit PCU [address] [place] [address] Phone: tel: Referral ID Status Reason Start Date Expiration Date Visits Re quested Visits Authorized [id number] 1 1 Reason Onset Date Comments Appointment [...] BE BASED ON THE PRIMARY CLINICAL RECORDS. [facility] [employer] provides no warranty or guarantee of the accuracy or completeness of information in this document.
[2025-04-24 08:35] LABS: Prothrombin Time (Protime)PT. 42.3 SECONDS (11.7-14.9)
[2025-04-24 08:40] LABS: AST(SGOT) 32 U/L (<=37); Alanine Aminotransfer ALT/SGPT 9 U/L (<=46); Albumin, Serum 3.1 g/dL (3.5-5.0); Alkaline Phosphatase 373 U/L (40-129); Anion Gap 12 (5-15); BUN 52 mg/dL (4-19); BUN/Creat Ratio 11.1 RATIO (10-20); Calcium,Total 10.0 mg/dL (7.6-11.0); Carbon Dioxide 26.3 mmol/L (21.0-32.0); Chloride 97 mmol/L (98-108); Globulin 4.6 g/dL (2.2-4.2); Glucose 86 mg/dL (70-99); Potassium 5.6 mmol/L (3.3-5.1)
== END ==
LOC: OLS.SANC 04:00
DX: I48.91 Unspecified atrial fibrillation (principal); D64.9 Anemia, unspecified; I12.0 Hypertensive chronic kidney disease with stage 5 chronic kidney disease or end stage renal disease; N18.6 End stage renal disease; Z79.01 Long term (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 anticoagulants
CPT/HCPCS: 36415; 80053; 85610

== ENCOUNTER → 2025-04-25 05:00 | Outpatient (REF) | payer MEDICARE, SELFPAY ==
[2025-04-25 07:47] LABS: Prothrombin Time (Protime)PT. 31.5 SECONDS (11.7-14.9)
== END ==
LOC: OLS.SANC 05:00
PROVIDERS: Visit Provider Internal Medicine
DX: Z79.01 Long term (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 anticoagulants (principal)
CPT/HCPCS: 36415; 85610

== ENCOUNTER → 2025-04-26 | Outpatient (REF) | payer MEDICARE, SELFPAY ==
[2025-04-26 09:09] LABS: Prothrombin Time (Protime)PT. 26.2 SECONDS (11.7-14.9)
== END ==
LOC: OLS.SANC 05:00
DX: Z79.01 Long term (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 anticoagulants (principal)
CPT/HCPCS: 36415; 85610

== ENCOUNTER → 2025-04-30 | Outpatient (REF) | payer MEDICARE, SELFPAY ==
[2025-04-30 09:29] LABS: Hematocrit 30.4 % (40-54); Hemoglobin 9.7 g/dL (13.0-16.5); Immature Granulocytes Count 0.030 X10^3/uL (0.0-0.0); Mean Corp Hgb Conc 31.9 g/dL (32-36); Mean Corpuscular Volume 90.7 fL (80-94); Mean Platelet Vol. 9.1 fl (6.2-12.0); NRBC Flagged by Analyzer 0 % (0-5); Platelet Count 294 K/mm3 (150-450); RBC Distribution Width CV 16.7 % (11.6-14.6); RBC Distribution Width SD 55.3 fl (35.1-43.9); Red Blood Count 3.35 M/mm3 (4.6-6.2); White Blood Count 7.8 K/mm3 (4.4-11.0)
[2025-04-30 09:32] LABS: Prothrombin Time (Protime)PT. 28.7 SECONDS (11.7-14.9)
[2025-04-30 09:43] LABS: AST(SGOT) 30 U/L (<=37); Alanine Aminotransfer ALT/SGPT 9 U/L (<=46); Albumin, Serum 3.2 g/dL (3.5-5.0); Alkaline Phosphatase 347 U/L (40-129); Anion Gap 13 (5-15); BUN 61 mg/dL (4-19); BUN/Creat Ratio 10.0 RATIO (10-20); Calcium,Total 9.8 mg/dL (7.6-11.0); Carbon Dioxide 24.2 mmol/L (21.0-32.0); Chloride 93 mmol/L (98-108); Globulin 4.5 g/dL (2.2-4.2); Glucose 111 mg/dL (70-99); Potassium 6.3 mmol/L (3.3-5.1)
== END ==
LOC: OLS.SANC 05:00
DX: I48.91 Unspecified atrial fibrillation (principal); I10 Essential (primary) hypertension; D64.9 Anemia, unspecified; Z99.2 Dependence on renal dialysis; Z79.01 Long term (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 anticoagulants
CPT/HCPCS: 36415; 80053; 85025; 85610

== ENCOUNTER → 2025-05-03 05:00 | Outpatient (REF) | payer MEDICARE, SELFPAY ==
--- OUTSIDE RECORDS SUMMARY | 2025-05-03 04:51 | XMS RPT_ITS | CCD ---
Author Organization [facility] Care Team Providers Care Tractor Mechanic Name Role Phone Candido Starr Unavailable Unavailable Primary Care Provider Unavailrickey Loomis MD, Daryn Cali Primary Care Provider [phone] Unavailable Primary Care Provider UnavailCandido Hardy MD Unavailable Daryn Loomis MD Primary Care Provider Candido Starr MD Unavailable [facility] Primary [facility] Provider [facility] Primary Care Provider [phone] Kayley Melendrez MD Attending Provider Unava ilable Jayesh Nguyen Attending Provider Unavailab Kayley Cm MD Referring Provider Unava ilable BARB DAWKINS Attending Unavailable JUNE CHAPARRO Consulting Unavailable QUIANA JEFFERY Admitting Unavailable [facility] Primary Care Unavailable DIETER VILLEGAS Attending Unavailable [facility] Primary Care Unavailable LUCIANO MONTEMAYOR Attending Unavailable MONTEMAYOR, LUCIANO Admitting Unavailable JORGE, JAYAPRAKASH Consulting Unavailable [facility] Primary Care Unavailable ELDON ALBA Consulting Unavailable TIFFANIE VILLEGAS Consulting Unavailable DARYN SANTACRUZ Consulting Unavailable CALI ARREDONDO Consulting Unavailable ANU CASTRO Attending Unavailable WELLINGTON NICOLE Consulting Unavailable RUBI SANON Admitting Unavailable [facility] Primary Care Unavailable [facility] Primary Care Unavailable KEIRY SOLARES Attending Unavailable [facility] Primary Care Unavailable ANTHONY HURTADO Attending Unavailable TERRELL, WELLINGTON Consulting Unavailable BETTYE PIERRE Admitting Unavailable ABA, LEILANI Primary Care Unavailable ABA, LEILANI Primary Care Unavailable FRANK, JESE Referring Unavailable ABA, LEILANI Primary Care Unavailable ELIZABETH, ASHMA Referring Unavailable ABA, LEILANI Primary Care Unavailable MIKALA DAY Referring Unavailable MIKALA DAY Attending Unavailable DARYN LOOMIS Primary Care Unavailable JR SHAH Attending Unavailable ABA, LEILANI Primary Care Unavailable MONTEMAYOR, LUCIANO Referring Unavailable ABA, LEILANI Primary Care Unavailable MONTEMAYOR, LUCIANO Referring Unavailable ABA, LEILANI Primary Care Unavailable OSIRIS TERRELL Attending Unavailable ABA, LEILANI Primary Care Unavailable MIKALA DAY Attending Unavailable ABA, LEILANI Primary Care Unavailable FRANK, JESE Referring Unavailable Katsaros OLS, Peter Attending Unavailable Katsaros OLS, Peter Attending Unavailable Katsaros OLS, [...] able Mukkamalla OLS, Mahaveer Attending Unavail able Kayley Jones Attending Unavail able Allergies Allergy Classification Reported Allergen(s) Allergy Type Date of Onset Reaction(s) Facility (11 sources) Lisinopril Drug Allergy 0 Swelling [facility] Work Phone: (20 sources) Lisinopril Allergy to substance 2 Swelling, Angioedema [facility] Medications Current Medications Medication Drug [...] Sodium (UNASYN IV) (1 source) Start: 01-26-20 25 End: 02-15-20 25 take 3 g intravenously every twenty-four hours Ampicillin-Sulbacta m Sodium (UNASYN IV) Infuse 3 g into a venous catheter Every 24 hours. 01/25/2025 02/14/2025 Active atorvastatin 10 mg oral tablet (3 sources) HMG-CoA Reductase Inhibitor Start: 08-17-20 23 End: 10-16-19 24 take 1 tablet by [...] Start: 04-05-2025 5 mg, IntraVENous, Once, On [facility] 04/05/25 at 1040, For 1 dose Start: 03-17-2025 End: 03-21-2025 take 50 mg by mouth twice daily 50 mg, Oral, 2 times daily, First dose (after last modification) on [facility] 03/17/25 at 2100 Start: 03-15-2025 End: 03-17-2025 [...] MG tablet Indications: ESRD on hemodialysis (CMS/HCC) ([facility]) Take 1 tablet (800 mg) by mouth [...] with meals. Take 3 tablets by mo [facility] three times daily with meals. sodium [...] 025 7.5 mg, Oral, Once Warfarin, On Wed03/20/25 [...] tablet 650 mg 20 ml albumin human, assisted 250 mg/ml injection (1 source) Human Serum [...] sodium chloride 0.9 % 100 mL IVPB ([facility]) (2 sources) Start: 02-01-2025 End: 02-01-2025 anidulafungin [...] End: 01-22-2025 Start: 01-22-2025 End: 01-22-2025 B Exqypxa-V-Xvipv Acid (NEPHRO-NATO) 0.8 MG TABS (1 source) Start: 10-14-2020 take 1 tablet by mouth once daily B Svjgtzq-F-Lgdod Acid (NEPHRO-NATO) 0.8 MG TABS TAKE 1 [...] at 1024, Anesthesia Intraprocedure epoetin rowan-epbx (Retacrit) 91172 UNIT/ML injection (20 sources) Start: 12-04-2024 End: 02-21-2025 inject 0.79 mL by subcutaneous injection every week epoetin rowan-epbx (Retacrit) 47964 UNIT/ML injection Indications: ESRD on Dialysis Inject 0.79 mL (7,900 Units) under the skin 1 (one) time per week. 12/04/2024 02/21/2025 Discontinued (Discontinued by another clinician) Start: 12-04-2024 inject 0.79 mL by bangura bcutaneous injection every week epoetin rowan-epbx (Retacrit) 99509 UNIT/ML injection Indications: ESRD on Dialysis Inject [...] at 1024, Anesthesia Intraprocedure polyethylene glycol 3350 92304 mg powder for oral solution (6 sources) [...] sodium chloride 5860 mg / sodium sulfate 36990 mg powder for oral solution (6 sources) [...] 1105, Anesthesia Intraprocedure 25 ml protamine sulfate (assisted) 10 mg/ml injection (1 source) Start: 10-12-2024 [...] Active Problems Problem Classification Problem Date Documented Date Episodic/Chronic Acute posthemorrhagic anemia (1 source) Acute [...] hemorrhage or perforation] Onset: 2024 2024 Chronic Heart valve disorders (20 sources) Aortic stenosis, [...] sources) Long-term current use of antibiotic; Translations: [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] Onset: 01-12-2025 01-12-2025 Episodic Other aftercare (2 sources) parts counterman (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 anticoagulants; Translations: [parts counterman (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 anticoagulants] Onset: 03-24-2025 Episodic Other aftercare (1 source) Other 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 designer (current) drug therapy; Translations: [Other 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 designer (current) drug therapy] Onset: 02-28-2025 Episodic Other [...] sources) Angioedema; Translations: [Hyperkalemia] Onset: 10-03-2024 Episodic Gastrointestinal hemorrhage (20 sources) Rectal hemorrhage; Translations: [Hemorrhage of anus and rectum] Onset: 10-03-2024 Episodic Other aftercare (1 source) [facility] (current) use of antibiotics; Translations: [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] Onset: 01-12-2025 Episodic [...] Interpretation Reference Range Facility CBC W/Diff, Automatedon 08-0 Absolute Lymph 1.23 X10 3/uL Normal 0.83-4.51 [facility] Comment on above: Order Comment: 413.2 Performed By: #### L 300.3900, L500.4050, L100.0100 #### [facility] [address] [place], [address] Absolute Neut 5.0 X10 3/uL Normal 2.0-7.7 [facility] Comment on above: Order Comment: 413.2 Performed By: #### L 300.3900, L500.4050, L100.0100 #### [facility] [address] [place], [address] Basophils/100 WBC (Bld) 1.5 % High 0-1 [facility] Comment on above: Order Comment: 413.2 Performed By: #### L 300.3900, L500.4050, L100.0100 #### [facility] [address] [place], [address] Eosinophils/100 WBC (Bld) 5.9 % High 0-5 [facility] Comment on above: Order Comment: 413.2 Performed By: #### L 300.3900, L500.4050, L100.0100 #### [facility] [address] [place], [address] Erythrocyte distribution width (RBC) [Ratio] 16.7 % High 11.6-14.6 [facility] Comment on above: Order Comment: 413.2 Performed By: #### L 300.3900, L500.4050, L100.0100 #### [facility] [address] [place], [address] Hematocrit (Bld) [Volume fraction] 30.4 % Low 40-54 [facility] Comment on above: Order Comment: 413.2 Performed By: #### L 300.3900, L500.4050, L100.0100 #### [facility] [address] [place], [address] Hemoglobin (Bld) [Mass/Vol] 9.7 g/dL Low 13.0-16.5 [facility] Comment on above: Order Comment: 413.2 Performed By: #### L 300.3900, L500.4050, L100.0100 #### [facility] [address] [place], [address] IG% 0.400 Normal 0.0-0.9 [facility] Comment on above: Order Comment: 413.2 Result Comment: IG% - Immature Granulocytes (promyelocytes, myelocytes and metamyelocytes) > 1% indicates that a LEFT SHIFT is Present. Performed By: #### L 300.3900, L500.4050, L100.0100 #### [facility] [address] [place], [address] Lymphocytes/100 WBC (Bld) 15.7 % Low 19-41 [facility] Comment on above: Order Comment: 413.2 Performed By: #### L 300.3900, L500.4050, L100.0100 #### [facility] [address] [place], [address] MCH (RBC) [Entitic mass] 29.0 pg Normal 27.0-32.0 [facility] Comment on above: Order Comment: 413.2 Performed By: #### L 300.3900, L500.4050, L100.0100 #### [facility] [address] [place], [address] MCHC (RBC) [Mass/Vol] 31.9 g/dL Low 32-36 [facility] Comment on above: Order Comment: 413.2 Performed By: #### L 300.3900, L500.4050, L100.0100 #### [facility] [address] [place], [address] MCV (RBC) [Entitic vol] 90.7 fL Normal 80-94 [facility] Comment on above: Order Comment: 413.2 Performed By: #### L 300.3900, L500.4050, L100.0100 #### [facility] [address] [place], [address] Monocytes/100 WBC (Bld) 12.7 % High 0-10 [facility] Comment on above: Order Comment: 413.2 Performed By: #### L 300.3900, L500.4050, L100.0100 #### [facility] [address] [place], [address] Neutrophils/100 WBC (Bld) 63.8 % Normal 47-70 [facility] Comment on above: Order Comment: 413.2 Performed By: #### L 300.3900, L500.4050, L100.0100 #### [facility] [address] [place], [address] Nucleated RBC (Bld) [#/Vol] 0 10*3/uL Normal 0-5 [facility] Comment on above: Order Comment: 413.2 Performed By: #### L 300.3900, L500.4050, L100.0100 #### [facility] [address] [place], [address] Platelet mean volume (Bld) [Entitic vol] 9.1 fL Normal 6.2-12.0 [facility] Comment on above: Order Comment: 413.2 Performed By: #### L 300.3900, L500.4050, L100.0100 #### [facility] [address] [place], [address] Platelets (Bld) [#/Vol] 294 10*3/uL Normal 150-450 [facility] Comment on above: Order Comment: 413.2 Performed By: #### L 300.3900, L500.4050, L100.0100 #### [facility] [address] [place], [address] RBC (Bld) [#/Vol] 3.35 10*6/uL Low 4.6-6.2 [facility] Comment on above: Order Comment: 413.2 Performed By: #### L 300.3900, L500.4050, L100.0100 #### [facility] [address] [place], [address] RDW SD 55.3 fl High 35.1-43.9 [facility] Comment on above: Order Comment: 413.2 Performed By: #### L 300.3900, L500.4050, L100.0100 #### [facility] [address] [place], [address] WBC (Bld) [#/Vol] 7.8 10*3/uL Normal 4.4-11.0 [facility] Comment on above: Order Comment: 413.2 Performed By: #### L 300.3900, L500.4050, L100.0100 #### [facility] [address] [place], [address] Comprehensive Metabolic Prof [facility] 04-30-2025 Albumin [Mass/Vol] 3.2 g/dL Low 3.5-5.0 [facility] Comment on above: Order Comment: 413.2 Performed By: #### L 300.3900, L500.4050, L100.0100 #### [facility] [address] [place], [address] Albumin/Globulin [Mass ratio] 0.7 {ratio} Low 0.9-2.4 [facility] Comment on above: Order Comment: 413.2 Performed By: #### L 300.3900, L500.4050, L100.0100 #### [facility] [address] [place], [address] ALK PHOS 347 U/L High 40-129 [facility] Comment on above: Order Comment: 413.2 Performed By: #### L 300.3900, L500.4050, L100.0100 #### [facility] [address] [place], [address] ALT [Catalytic activity/Vol] 9 U/L Normal <=46 [facility] Comment on above: Order Comment: 413.2 Performed By: #### L 300.3900, L500.4050, L100.0100 #### [facility] [address] [place], [address] AST [Catalytic activity/Vol] 30 U/L Normal <=37 [facility] Comment on above: Order Comment: 413.2 Performed By: #### L 300.3900, L500.4050, L100.0100 #### [facility] [address] [place], [address] Bilirubin [Mass/Vol] 0.70 mg/dL Normal 0.00-1.30 [facility] Comment on above: Order Comment: 413.2 Performed By: #### L 300.3900, L500.4050, L100.0100 #### [facility] [address] [place], [address] BUN/CRE 10.0 RATIO Normal 10-20 [facility] Comment on above: Order Comment: 413.2 Performed By: #### L 300.3900, L500.4050, L100.0100 #### [facility] [address] [place], [address] Calcium [Mass/Vol] 9.8 mg/dL Normal 7.6-11.0 [facility] Comment on above: Order Comment: 413.2 Performed By: #### L 300.3900, L500.4050, L100.0100 #### [facility] [address] [place], [address] Chloride [Moles/Vol] 93 mmol/L Low 98-108 [facility] Comment on above: Order Comment: 413.2 Performed By: #### L 300.3900, L500.4050, L100.0100 #### [facility] [address] [place], [address] CO2 [Moles/Vol] 24.2 mmol/L Normal 21.0-32.0 [facility] Comment on above: Order Comment: 413.2 Performed By: #### L 300.3900, L500.4050, L100.0100 #### [facility] [address] [place], [address] Creatinine [Mass/Vol] 6.05 mg/dL High 0.70-1.20 [facility] Comment on above: Order Comment: 413.2 Performed By: #### L 300.3900, L500.4050, L100.0100 #### [facility] [address] [place], [address] GAP 13 Normal 5-15 [facility] Comment on above: Order Comment: 413.2 Performed By: #### L 300.3900, L500.4050, L100.0100 #### [facility] [address] [place], [address] GFR/1.73 sq M.predicted among non-blacks MDRD (S/P/Bld) [Vol rate/Area] 10 mL/min/{1.73_m2} Low >60 [facility] Comment on above: Order Comment: 413.2 Result Comment: mL/m in/1.73m2 CKD-EPI Creatinine Equation (2020) Performed By: #### L 300.3900, L500.4050, L100.0100 #### [facility] [address] [place], [address] Globulin (S) [Mass/Vol] 4.5 g/dL High 2.2-4.2 [facility] Comment on above: Order Comment: 413.2 Performed By: #### L 300.3900, L500.4050, L100.0100 #### [facility] [address] [place], [address] Glucose [Mass/Vol] 111 mg/dL High 70-99 [facility] Comment on above: Order Comment: 413.2 Performed By: #### L 300.3900, L500.4050, L100.0100 #### [facility] [address] [place], [address] Potassium [Moles/Vol] 6.3 mmol/L Invalid Interpretation Code 3.3-5.1 [facility] Comment on above: Order Comment: 413.2 Result Comment: Crit ical Result(s) Called at 0943: by: JOSHUA SYED TO ARMAND. ??Results read back by same. Performed By: #### L 300.3900, L500.4050, L100.0100 #### [facility] [address] [place], [address] Sodium [Moles/Vol] 131 mmol/L Low 133-145 [facility] Comment on above: Order Comment: 413.2 Performed By: #### L 300.3900, L500.4050, L100.0100 #### [facility] [address] [place], [address] T PROT 7.8 g/dL Normal 5.9-8.4 [facility] Comment on above: Order Comment: 413.2 Performed By: #### L 300.3900, L500.4050, L100.0100 #### [facility] [address] [place], [address] Urea nitrogen [Mass/Vol] 61 mg/dL High 4-19 [facility] Comment on above: Order Comment: 413.2 Performed By: #### L 300.3900, L500.4050, L100.0100 #### [facility] [address] [place], [address] Prothrombin Time w/INRon 08- 04-2025 INR Coag (PPP) [Relative time] 2.6 {INR} Normal [facility] Comment on above: Order Comment: 413.2 Performed By: #### L 300.3900, L500.4050, L100.0100 #### [facility] [address] [place], [address] PT Coag (PPP) [Time] 28.7 s High 11.7-14.9 [facility] Comment on above: Order Comment: 413.2 Performed By: #### L 300.3900, L500.4050, L100.0100 #### [facility] [address] [place], [address] Prothrombin Time w/INRon INR Coag (PPP) [Relative time] 2.3 {INR} Normal [facility] Comment on above: Order Comment: 412.2 Performed By: #### L 100.0100, L500.4050, L300.3900 #### [facility] [address] [place], [address] PT Coag (PPP) [Time] 26.2 s High 11.7-14.9 [facility] Comment on above: Order Comment: 412.2 Performed By: #### L 100.0100, L500.4050, L300.3900 #### [facility] [address] [place], [address] 36on 04-25-2025 36 Normal [facility] Prothrombin Time w/INRon INR Coag (PPP) [Relative time] 3.0 {INR} Normal [facility] Comment on above: Order Comment: 412-2 Performed By: #### L 300.3900 #### [facility] [address] [place], [address] PT Coag (PPP) [Time] 31.5 s High 11.7-14.9 [facility] Comment on above: Order Comment: 412-2 Performed By: #### L 300.3900 #### [facility] [address] [place], [address] Comprehensive Metabolic Prof ilon 04-24-2025 Albumin [Mass/Vol] 3.1 g/dL Low 3.5-5.0 [facility] Comment on above: Order Comment: 412.2 Performed By: #### L 100.0100, L500.4050, L300.3900 #### [facility] [address] [place], [address] Albumin/Globulin [Mass ratio] 0.7 {ratio} Low 0.9-2.4 [facility] Comment on above: Order Comment: 412.2 Performed By: #### L 100.0100, L500.4050, L300.3900 #### [facility] [address] [place], [address] ALK PHOS 373 U/L High 40-129 [facility] Comment on above: Order Comment: 412.2 Performed By: #### L 100.0100, L500.4050, L300.3900 #### [facility] [address] [place], [address] ALT [Catalytic activity/Vol] 9 U/L Normal <=46 [facility] Comment on above: Order Comment: 412.2 Performed By: #### L 100.0100, L500.4050, L300.3900 #### [facility] [address] [place], [address] AST [Catalytic activity/Vol] 32 U/L Normal <=37 [facility] Comment on above: Order Comment: 412.2 Performed By: #### L 100.0100, L500.4050, L300.3900 #### [facility] [address] [place], [address] Bilirubin [Mass/Vol] 0.61 mg/dL Normal 0.00-1.30 [facility] Comment on above: Order Comment: 412.2 Performed By: #### L 100.0100, L500.4050, L300.3900 #### [facility] [address] [place], [address] BUN/CRE 11.1 RATIO Normal 10-20 [facility] Comment on above: Order Comment: 412.2 Performed By: #### L 100.0100, L500.4050, L300.3900 #### [facility] [address] [place], [address] Calcium [Mass/Vol] 10.0 mg/dL Normal 7.6-11.0 [facility] Comment on above: Order Comment: 412.2 Performed By: #### L 100.0100, L500.4050, L300.3900 #### [facility] [address] [place], [address] Chloride [Moles/Vol] 97 mmol/L Low 98-108 [facility] Comment on above: Order Comment: 412.2 Performed By: #### L 100.0100, L500.4050, L300.3900 #### [facility] [address] [place], [address] CO2 [Moles/Vol] 26.3 mmol/L Normal 21.0-32.0 [facility] Comment on above: Order Comment: 412.2 Performed By: #### L 100.0100, L500.4050, L300.3900 #### [facility] [address] [place], [address] Creatinine [Mass/Vol] 4.72 mg/dL High 0.70-1.20 [facility] Comment on above: Order Comment: 412.2 Performed By: #### L 100.0100, L500.4050, L300.3900 #### [facility] [address] [place], [address] GAP 12 Normal 5-15 [facility] Comment on above: Order Comment: 412.2 Performed By: #### L 100.0100, L500.4050, L300.3900 #### [facility] [address] [place], [address] GFR/1.73 sq M.predicted among non-blacks MDRD (S/P/Bld) [Vol rate/Area] 13 mL/min/{1.73_m2} Low >60 [facility] Comment on above: Order Comment: 412.2 Result Comment: mL/m in/1.73m2 CKD-EPI Creatinine Equation (2020) Performed By: #### L 100.0100, L500.4050, L300.3900 #### [facility] [address] [place], [address] Globulin (S) [Mass/Vol] 4.6 g/dL High 2.2-4.2 [facility] Comment on above: Order Comment: 412.2 Performed By: #### L 100.0100, L500.4050, L300.3900 #### [facility] [address] [place], [address] Glucose [Mass/Vol] 86 mg/dL Normal 70-99 [facility] Comment on above: Order Comment: 412.2 Performed By: #### L 100.0100, L500.4050, L300.3900 #### [facility] [address] [place], [address] Potassium [Moles/Vol] 5.6 mmol/L High 3.3-5.1 [facility] Comment on above: Order Comment: 412.2 Performed By: #### L 100.0100, L500.4050, L300.3900 #### [facility] [address] [place], [address] Sodium [Moles/Vol] 135 mmol/L Normal 133-145 [facility] Comment on above: Order Comment: 412.2 Performed By: #### L 100.0100, L500.4050, L300.3900 #### [facility] [address] [place], [address] T PROT 7.7 g/dL Normal 5.9-8.4 [facility] Comment on above: Order Comment: 412.2 Performed By: #### L 100.0100, L500.4050, L300.3900 #### [facility] [address] [place], [address] Urea nitrogen [Mass/Vol] 52 mg/dL High 4-19 [facility] Comment on above: Order Comment: 412.2 Performed By: #### L 100.0100, L500.4050, L300.3900 #### [facility] [address] [place], [address] Prothrombin Time w/INRon INR Coag (PPP) [Relative time] 4.3 {INR} Invalid Interpretation Code [facility] Comment on above: Order Comment: 412.2 Result Comment: CRIT ICAL VALUE CALLED TO JANUSZ PITT ([facility]) 04/24/25 0858 Brett Stack. RESULTS READ BACK BY SAME. Performed By: #### L 100.0100, L500.4050, L300.3900 #### [facility] [address] [place], [address] PT Coag (PPP) [Time] 42.3 s High 11.7-14.9 [facility] Comment on above: Order Comment: 412.2 Performed By: #### L 100.0100, L500.4050, L300.3900 #### [facility] [address] [place], [address] CBC W/Diff, Automatedon - Absolute Lymph 0.95 X10 3/uL Normal 0.83-4.51 [facility] Comment on above: Order Comment: 412.2 Performed By: #### L 100.0100, L500.4050, L300.3900 #### [facility] [address] [place], [address] Absolute Neut 4.2 X10 3/uL Normal 2.0-7.7 [facility] Comment on above: Order Comment: 412.2 Performed By: #### L 100.0100, L500.4050, L300.3900 #### [facility] [address] [place], [address] Basophils/100 WBC (Bld) 1.5 % High 0-1 [facility] Comment on above: Order Comment: 412.2 Performed By: #### L 100.0100, L500.4050, L300.3900 #### [facility] [address] [place], [address] Eosinophils/100 WBC (Bld) 5.7 % High 0-5 [facility] Comment on above: Order Comment: 412.2 Performed By: #### L 100.0100, L500.4050, L300.3900 #### [facility] [address] [place], [address] Erythrocyte distribution width (RBC) [Ratio] 17.1 % High 11.6-14.6 [facility] Comment on above: Order Comment: 412.2 Performed By: #### L 100.0100, L500.4050, L300.3900 #### [facility] [address] [place], [place], [address] Hematocrit (Bld) [Volume fraction] 29.3 % Low 40-54 [facility] Comment on above: Order Comment: 412.2 Performed By: #### L 100.0100, L500.4050, L300.3900 #### [facility] [address] [place], [address] Hemoglobin (Bld) [Mass/Vol] 9.4 g/dL Low 13.0-16.5 [facility] Comment on above: Order Comment: 412.2 Performed By: #### L 100.0100, L500.4050, L300.3900 #### [facility] [address] [place], [address] IG% 0.800 Normal 0.0-0.9 [facility] Comment on above: Order Comment: 412.2 Result Comment: IG% - Immature Granulocytes (promyelocytes, myelocytes and metamyelocytes) > 1% indicates that a LEFT SHIFT is Present. Performed By: #### L 100.0100, L500.4050, L300.3900 #### [facility] [address] [place], [address] Lymphocytes/100 WBC (Bld) 14.6 % Low 19-41 [facility] Comment on above: Order Comment: 412.2 Performed By: #### L 100.0100, L500.4050, L300.3900 #### [facility] [address] [place], [address] MCH (RBC) [Entitic mass] 29.6 pg Normal 27.0-32.0 [facility] Comment on above: Order Comment: 412.2 Performed By: #### L 100.0100, L500.4050, L300.3900 #### [facility] [address] [place], [address] MCHC (RBC) [Mass/Vol] 32.1 g/dL Normal 32-36 [facility] Comment on above: Order Comment: 412.2 Performed By: #### L 100.0100, L500.4050, L300.3900 #### [facility] [address] [place], [address] MCV (RBC) [Entitic vol] 92.1 fL Normal 80-94 [facility] Comment on above: Order Comment: 412.2 Performed By: #### L 100.0100, L500.4050, L300.3900 #### [facility] [address] [place], [address] Monocytes/100 WBC (Bld) 12.6 % High 0-10 [facility] Comment on above: Order Comment: 412.2 Performed By: #### L 100.0100, L500.4050, L300.3900 #### [facility] [address] [place], [address] Neutrophils/100 WBC (Bld) 64.8 % Normal 47-70 [facility] Comment on above: Order Comment: 412.2 Performed By: #### L 100.0100, L500.4050, L300.3900 #### [facility] [address] [place], [address] Nucleated RBC (Bld) [#/Vol] 0 10*3/uL Normal 0-5 [facility] Comment on above: Order Comment: 412.2 Performed By: #### L 100.0100, L500.4050, L300.3900 #### [facility] [address] [place], [address] Platelet mean volume (Bld) [Entitic vol] 9.4 fL Normal 6.2-12.0 [facility] Comment on above: Order Comment: 412.2 Performed By: #### L 100.0100, L500.4050, L300.3900 #### [facility] [address] [place], [address] Platelets (Bld) [#/Vol] 357 10*3/uL Normal 150-450 [facility] Comment on above: Order Comment: 412.2 Performed By: #### L 100.0100, L500.4050, L300.3900 #### [facility] [address] [place], [address] RBC (Bld) [#/Vol] 3.18 10*6/uL Low 4.6-6.2 [facility] Comment on above: Order Comment: 412.2 Performed By: #### L 100.0100, L500.4050, L300.3900 #### [facility] [address] [place], [address] RDW SD 57.9 fl High 35.1-43.9 [facility] Comment on above: Order Comment: 412.2 Performed By: #### L 100.0100, L500.4050, L300.3900 #### [facility] [address] [place], [address] WBC (Bld) [#/Vol] 6.5 10*3/uL Normal 4.4-11.0 [facility] Comment on above: Order Comment: 412.2 Performed By: #### L 100.0100, L500.4050, L300.3900 #### [facility] [address] [place], [address] Comprehensive Metabolic Prof [facility] 04-23-2025 Albumin [Mass/Vol] 3.1 g/dL Low 3.5-5.0 [facility] Comment on above: Order Comment: 412.2 Performed By: #### L 100.0100, L500.4050, L300.3900 #### [facility] [address] [place], [address] Albumin/Globulin [Mass ratio] 0.7 {ratio} Low 0.9-2.4 [facility] Comment on above: Order Comment: 412.2 Performed By: #### L 100.0100, L500.4050, L300.3900 #### [facility] [address] [place], [address] ALK PHOS 352 U/L High 40-129 [facility] Comment on above: Order Comment: 412.2 Performed By: #### L 100.0100, L500.4050, L300.3900 #### [facility] [address] [place], [address] ALT [Catalytic activity/Vol] 8 U/L Normal <=46 [facility] Comment on above: Order Comment: 412.2 Performed By: #### L 100.0100, L500.4050, L300.3900 #### [facility] [address] [place], [address] AST [Catalytic activity/Vol] 32 U/L Normal <=37 [facility] Comment on above: Order Comment: 412.2 Performed By: #### L 100.0100, L500.4050, L300.3900 #### [facility] [address] [place], [address] Bilirubin [Mass/Vol] 0.58 mg/dL Normal 0.00-1.30 [facility] Comment on above: Order Comment: 412.2 Performed By: #### L 100.0100, L500.4050, L300.3900 #### [facility] [address] [place], [address] BUN/CRE 12.2 RATIO Normal 10-20 [facility] Comment on above: Order Comment: 412.2 Performed By: #### L 100.0100, L500.4050, L300.3900 #### [facility] [address] [place], [address] Calcium [Mass/Vol] 10.0 mg/dL Normal 7.6-11.0 [facility] Comment on above: Order Comment: 412.2 Performed By: #### L 100.0100, L500.4050, L300.3900 #### [facility] [address] [place], [address] Chloride [Moles/Vol] 99 mmol/L Normal 98-108 [facility] Comment on above: Order Comment: 412.2 Performed By: #### L 100.0100, L500.4050, L300.3900 #### [facility] [address] [place], [address] CO2 [Moles/Vol] 22.3 mmol/L Normal 21.0-32.0 [facility] Comment on above: Order Comment: 412.2 Performed By: #### L 100.0100, L500.4050, L300.3900 #### [facility] [address] [place], [address] Creatinine [Mass/Vol] 5.69 mg/dL High 0.70-1.20 [facility] Comment on above: Order Comment: 412.2 Performed By: #### L 100.0100, L500.4050, L300.3900 #### [facility] [address] [place], [address] GAP 13 Normal 5-15 [facility] Comment on above: Order Comment: 412.2 Performed By: #### L 100.0100, L500.4050, L300.3900 #### [facility] [address] [place], [address] GFR/1.73 sq M.predicted among non-blacks MDRD (S/P/Bld) [Vol rate/Area] 11 mL/min/{1.73_m2} Low >60 [facility] Comment on above: Order Comment: 412.2 Result Comment: mL/m in/1.73m2 CKD-EPI Creatinine Equation (2020) Performed By: #### L 100.0100, L500.4050, L300.3900 #### [facility] [address] [place], [address] Globulin (S) [Mass/Vol] 4.4 g/dL High 2.2-4.2 [facility] Comment on above: Order Comment: 412.2 Performed By: #### L 100.0100, L500.4050, L300.3900 #### [facility] [address] [place], [address] Glucose [Mass/Vol] 109 mg/dL High 70-99 [facility] Comment on above: Order Comment: 412.2 Performed By: #### L 100.0100, L500.4050, L300.3900 #### [facility] [address] [place], [address] Potassium [Moles/Vol] 5.9 mmol/L High 3.3-5.1 [facility] Comment on above: Order Comment: 412.2 Performed By: #### L 100.0100, L500.4050, L300.3900 #### [facility] [address] [place], [address] Sodium [Moles/Vol] 135 mmol/L Normal 133-145 [facility] Comment on above: Order Comment: 412.2 Performed By: #### L 100.0100, L500.4050, L300.3900 #### [facility] [address] [place], [address] T PROT 7.5 g/dL Normal 5.9-8.4 [facility] Comment on above: Order Comment: 412.2 Performed By: #### L 100.0100, L500.4050, L300.3900 #### [facility] [address] [place], [address] Urea nitrogen [Mass/Vol] 70 mg/dL High 4-19 [facility] Comment on above: Order Comment: 412.2 Performed By: #### L 100.0100, L500.4050, L300.3900 #### [facility] [address] [place], [address] Prothrombin Time w/INRon INR Coag (PPP) [Relative time] 3.5 {INR} Normal [facility] Comment on above: Order Comment: 412.2 Performed By: #### L 100.0100, L500.4050, L300.3900 #### [facility] [address] [place], [address] PT Coag (PPP) [Time] 36.1 s High 11.7-14.9 [facility] Comment on above: Order Comment: 412.2 Performed By: #### L 100.0100, L500.4050, L300.3900 #### [facility] [address] [place], [address] 36on 04-20-2025 36 Normal [facility] Prothrombin Time w/INRon INR Coag (PPP) [Relative time] 2.8 {INR} Normal [facility] Comment on above: Order Comment: 412.2 Performed By: #### L 100.0100, L500.4050, L300.3900 #### [facility] [address] [place], [address] PT Coag (PPP) [Time] 29.8 s High 11.7-14.9 [facility] Comment on above: Order Comment: 412.2 Performed By: #### L 100.0100, L500.4050, L300.3900 #### [facility] [address] [place], [address] Prothrombin Time w/INRon INR Coag (PPP) [Relative time] 3.4 {INR} Normal [facility] Comment on above: Order Comment: 412.2 Performed By: #### L 300.3900 #### [facility] [address] [place], [address] PT Coag (PPP) [Time] 35.0 s High 11.7-14.9 [facility] Comment on above: Order Comment: 412.2 Performed By: #### L 300.3900 #### [facility] [address] [place], [address] Prothrombin Time w/INRon INR Coag (PPP) [Relative time] 5.2 {INR} Invalid Interpretation Code [facility] Comment on above: Order Comment: 412.2 Result Comment: CRIT ICAL VALUE CALLED TO [place]HELLE BERG ([facility]) 04/18/25 0842 Brett Stack. RESULTS READ BACK BY SAME. Performed By: #### L 100.0100, L500.4050, L300.3900 #### [facility] [address] [place], [address] PT Coag (PPP) [Time] 48.9 s High 11.7-14.9 [facility] Comment on above: Order Comment: 412.2 Performed By: #### L 100.0100, L500.4050, L300.3900 #### [facility] [address] [place], [address] Protime w/INR Fingerstickon 04-18-2025 INR Coag (PPP) [Relative time] 6.0 {INR} Invalid Interpretation Code [facility] Comment on above: Result Comment: Crit ical Value > 4.0 Performed By: #### L 300.3900 #### [facility] [address] [place], [address] Protime Coagsen 56.7 SEC High 11.7-14.9 [facility] Comment on above: Performed By: #### L 300.3900 #### [facility] [address] [place], [address] CBC W Auto Differential pane l (Bld)on 04-17-2025 Basophils (Bld) [#/Vol] 0.1 10*3/uL 0.0 - 0.2 10*3/uL [facility] Basophils/100 WBC (Bld) 1.4 % 0.0 - 2.0 % [facility] Eosinophils (Bld) [#/Vol] 0.2 10*3/uL 0.0 - 0.5 10*3/uL [facility] Eosinophils/100 WBC (Bld) 3.3 % 0.0 - 6.0 % [facility] Erythrocyte distribution width (RBC) [Ratio] 16.6 % High 11.5 - 15.0 % [facility] Hematocrit (Bld) [Volume fraction] 29.6 % Low 40.0 - 52.0 % [facility] Hemoglobin (Bld) [Mass/Vol] 9.6 g/dL Low 13.0 - 18.0 g/dL [facility] Immature granulocytes (Bld) [#/Vol] 0 10*3/uL NINF - 0.1 10*3/uL [facility] Immature granulocytes/100 WBC (Bld) 0.4 % 0.0 - 2.0 % [facility] Interpretation and review of laboratory results Abnormal [facility] Lymphocytes (Bld) [#/Vol] 1 10*3/uL 1.0 - 4.3 10*3/uL [facility] Lymphocytes/100 WBC (Bld) 13.3 % Low 15.0 - 45.0 % [facility] MCH (RBC) [Entitic mass] 29.3 pg 26. 0 - 34.0 pg [facility] MCHC (RBC) [Mass/Vol] 32.4 % 30.5 - 36.0 % [facility] MCV (RBC) [Entitic vol] 90.2 fL 77.0 - 99.0 fL [facility] Monocytes (Bld) [#/Vol] 1.1 10*3/uL High 0.0 - 0.9 10*3/uL [facility] Monocytes/100 WBC (Bld) 15.2 % High 5.0 - 13.0 % [facility] Neutrophils (Bld) [#/Vol] 4.8 10*3/uL 1.8 - 7.5 10*3/uL [facility] Neutrophils/100 WBC (Bld) 66.4 % 38.0 - 82.0 % [facility] Nucleated RBC/100 WBC (Bld) [Ratio] 0 % [facility] [employer] Platelet mean volume (Bld) [Entitic vol] 9.3 fL 9.0 - 12.7 fL [facility] Platelets (Bld) [#/Vol] 381 10*3/uL 140 - 440 10*3/uL [facility] RBC (Bld) [#/Vol] 3.28 10*6/uL Low 4.40 - 5.9 0 10*6/uL [facility] WBC (Bld) [#/Vol] 7.3 10*3/uL 3.6 - 10.7 10*3/uL [facility] CBC WITH AUTO DIFFERENTIALon 04-17-2025 Basophils (Bld) [#/Vol] 0.1 10*3/uL Normal 0.0-0.2 [facility] Comment on above: Performed By: #### L [id number] ####Assisted Living Home Director: FENG CONSTANTINO ([phone])[facility] [place] [address] Basophils/100 WBC (Bld) 1.4 % Normal 0.0-2.0 [facility] Comment on above: Performed By: #### L [id number] ####Assisted Living [facility] Director: FENG CONSTANTINO ([id number])[facility] [place] ([facility])[address] [place] [address] [place] Eosinophils (Bld) [#/Vol] 0.2 10*3/uL Normal 0.0-0.5 [facility] Comment on above: Performed By: #### L [id number] ####Assisted Living [facility] Director: FENG CONSTANTINO ([id number])[facility] [place] ([facility])[address] Eosinophils/100 WBC (Bld) 3.3 % Normal 0.0-6.0 [facility] Comment on above: Performed By: #### L [id number] ####Assisted Living [facility] Director: FENG CONSTANTINO ([id number])[facility] [place] ([facility])[address] Erythrocyte distribution width (RBC) [Ratio] 16.6 % High 11.5-15.0 [facility] Comment on above: Performed By: #### L [id number] ####Assisted Living [facility] Director: FENG CONSTANTINO ([id number])[facility] ([facility])[address] Hematocrit (Bld) [Volume fraction] 29.6 % Low 40.0-52.0 [facility] Comment on above: Performed By: #### L [id number] ####Assisted Living Home Director: FENG COLEGEORGE ([phone])[facility] Hemoglobin (Bld) [Mass/Vol] 9.6 g/dL Low 13.0-18.0 [facility] Comment on above: Performed By: #### L [id number] ####Assisted Living Home Director: FENG CONSTANTINO ([phone])[facility] IMMATURE GRANS % 0.4 % Normal 0.0-2.0 [facility] Comment on above: Performed By: #### L [id number] ####Assisted Living Home Director: FENG COLEGEORGE ([id number])[facility] IMMATURE GRANS ABSOLUTE 0.0 10*3/uL Normal <0.1 [facility] Comment on above: Performed By: #### L [id number] ####Assisted Living Home Director: FENG COLEGEORGE ([phone])[facility] Lymphocytes (Bld) [#/Vol] 1.0 10*3/uL Normal 1.0-4.3 [facility] Comment on above: Performed By: #### L [id number] ####Assisted Living Home Director: FENG CONSTANTINO ([id number])[facility] Lymphocytes/100 WBC (Bld) 13.3 % Low 15.0-45.0 [facility] Comment on above: Performed By: #### L [id number] ####Assisted Living Home Director: FENG CONSTANTINO ([id number])[facility] ([facility])[address] MCH (RBC) [Entitic mass] 29.3 pg Normal 26.0-34.0 [facility] Comment on above: Performed By: #### L [id number] ####Assisted Living Home Director: FENG CONSTANTINO ([id number])[facility] ([facility])[address] MCHC 32.4 % Normal 30.5-36.0 [facility] Comment on above: Performed By: #### L [id number] ####Assisted Living Home Director: FENG CONSTANTINO ([id number])[facility] ([facility])[address] MCV (RBC) [Entitic vol] 90.2 fL Normal 77.0-99.0 [facility] Comment on above: Performed By: #### L [id number] ####Assisted Living Home Director: FENG CONSTANTINO ([phone])[facility] [place] ([facility])[address] Monocytes (Bld) [#/Vol] 1.1 10*3/uL High 0.0-0.9 [facility] Comment on above: Performed By: #### L [id number] ####Assisted Living Home Director: FENG CONSTANTINO ([id number])[facility] ([facility])[address] Monocytes/100 WBC (Bld) 15.2 % High 5.0-13.0 [facility] Comment on above: Performed By: #### L [id number] ####Assisted Living Home Director: FENG CONSTANTINO ([id number])[facility] [place] ([facility])[address] NEUTROPHILS ABSOLUTE 4.8 10*3/uL Normal 1.8-7.5 [facility] Comment on above: Performed By: #### L [id number] ####Assisted Living Home Director: FENG CONSTANTINO ([id number])[facility] [place] ([facility])[address] Neutrophils/100 WBC (Bld) 66.4 % Normal 38.0-82.0 [facility] Comment on above: Performed By: #### L [id number] ####Assisted Living Home Director: FENG CONSTANTINO ([id number])[facility] [place] ([facility])[address] NRBC 0.0 /100 WBCs Normal 0.0-2.0 [facility] Comment on above: Performed By: #### L [id number] ####Assisted Living Home Director: FENG CONSTANTINO ([id number])[facility] [place] ([facility])[address] Platelet mean volume (Bld) [Entitic vol] 9.3 fL Normal 9.0-12.7 [facility] Comment on above: Performed By: #### L [id number] ####Assisted Living Home Director: FENG CONSTANTINO ([id number])[facility] [place] ([facility])[address] [place] [address] [place] Platelets (Bld) [#/Vol] 381 10*3/uL Normal 140-440 [facility] Comment on above: Performed By: #### L [id number] ####Assisted Living Home Director: FENG CONSTANTINO ([id number])[facility] [place] ([facility])[address] [place] [address] [place] RBC (Bld) [#/Vol] 3.28 10*6/uL Low 4.40-5.90 [facility] Comment on above: Performed By: #### L [id number] ####Assisted Living Home Director: FENG CONSTANTINO ([id number])[facility] [place] ([facility])[address] [place] [address] [place] WBC (Bld) [#/Vol] 7.3 10*3/uL Normal 3.6-10.7 [facility] Comment on above: Performed By: #### L [id number] ####Assisted Living Home Director: FENG CONSTANTINO ([id number])[facility] [place] ([facility])[address] COMPREHENSIVE METABOLIC PANE Victor M 04-17-2025 Albumin [Mass/Vol] 2.3 g/dL Low 3.5-5.0 [facility] Comment on above: Performed By: #### L [id number] ####Assisted Living Home Director: FENG CONSTANTINO ([id number])[facility] [place] ([facility])[address] ALP [Catalytic activity/Vol] 294 U/L High 40-150 [facility] Comment on above: Performed By: #### L [id number] ####Assisted Living Home Director: FENG CONSTANTINO ([id number])[facility] [place] ([facility])[address] ALT [Catalytic activity/Vol] 6 U/L Normal <40 [facility] Comment on above: Performed By: #### L [id number] ####Assisted Living Home Director: FENG COLEGEORGE ([id number])[facility] [place] ([facility])[address] Anion gap [Moles/Vol] 11 mmol/L Normal 3-13 [facility] Comment on above: Performed By: #### L [id number] ####Assisted Living Home Director: FENG COLEGEORGE ([id number])[facility] [place] ([facility])[address] [place] [address] [place] AST [Catalytic activity/Vol] 57 U/L High <34 [facility] Comment on above: Performed By: #### L [id number] ####Assisted Living Home Director: FENG CONSTANTINO ([id number])[facility] [place] ([facility])[address] [place] [address] [place] Bilirubin [Mass/Vol] 0.7 mg/dL Normal <1.2 [facility] Comment on above: Performed By: #### L [id number] ####Assisted Living Home Director: FENG CONSTANTINO ([phone])[facility] [place] ([facility])[address] Calcium [Mass/Vol] 9.5 mg/dL Normal 8.4-10.2 [facility] Comment on above: Performed By: #### L [id number] ####Assisted Living Home Director: FENG CONSTANTINO ([phone])[facility] ([facility])[address] Chloride [Moles/Vol] 100 mmol/L Normal 98-107 [facility] Comment on above: Performed By: #### L [id number] ####Assisted Living Home Director: FENG CONSTANTINO ([phone])[facility] ([facility])[address] CO2 [Moles/Vol] 25 mmol/L Normal 22-29 [facility] Comment on above: Performed By: #### L AB17 ####Assisted Living Home Director: FENG CONSTANTINO ([id number])[facility] ([facility])[address] Creatinine [Mass/Vol] 4.18 mg/dL High 0.72-1.25 [facility] Comment on above: Performed By: #### L AB17 ####Assisted Living Home Director: FENG CONSTANTINO ([id number])[facility] GLOMERULAR FILTRATION RATE ML/MIN/1.73 SQ M.PREDICTED 15.6 mL/min/1.73m*2 Low >60.0 [facility] Comment on above: Result Comment: Calc ulation based on the Chronic Kidney Disease Epidemiology Collaboration (CKD-EPI) equation refit without adjustment for race Performed By: #### L AB17 ####Assisted Living Home Director: FENG CONSTANTINO ([phone])[facility] ([facility])[address] Glucose [Mass/Vol] 98 mg/dL Normal 74-100 [facility] Comment on above: Performed By: #### L AB17 ####Assisted Living Home Director: FENG CONSTANTINO ([id number])[facility] [place] ([facility])[address] Potassium [Moles/Vol] 5.7 mmol/L High 3.5-5.1 [facility] Comment on above: Result Comment: [facility] potassium values may be up to 0.5 mmol/L lower than serum values. Performed By: #### L AB17 ####Assisted Living Home Director: FENG CONSTANTINO ([phone])[facility] [place] ([facility])[address] Protein [Mass/Vol] 7.7 g/dL Normal 6.4-8.3 [facility] Comment on above: Performed By: #### L AB17 ####Assisted Living Home Director: FENG CONSTANTINO ([id number])[facility] ([facility])[address] Sodium [Moles/Vol] 136 mmol/L Normal 136-145 [facility] Comment on above: Performed By: #### L AB17 ####Assisted Living Home Director: FENG CONSTANTINO ([phone])[facility] ([facility])[address] Urea nitrogen [Mass/Vol] 48 mg/dL High 9-23 [facility] Comment on above: Performed By: #### L AB17 ####Assisted Living Home Director: FENG CONSTANTINO ([id number])[facility] ([facility])[address] Comprehensive metabolic 1998 panelon 04-17-2025 Albumin [Mass/Vol] 2.3 g/dL Low 3.5 - 5.0 g/dL [facility] ALP [Catalytic activity/Vol] 294 U/L High 40 - 150 U/L [facility] ALT [Catalytic activity/Vol] 6 U/L NINF - 40 U/L [facility] Anion gap [Moles/Vol] 11 mmol/L 3 - 13 mmol/L [facility] AST [Catalytic activity/Vol] 57 U/L High NINF - 34 U/L [facility] Bilirubin [Mass/Vol] 0.7 mg/dL NINF - 1.2 mg/dL [facility] Calcium [Mass/Vol] 9.5 mg/dL 8.4 - 10. 2 mg/dL [facility] Chloride [Moles/Vol] 100 mmol/L 98 - 10 7 mmol/L [facility] CO2 [Moles/Vol] 25 mmol/L 22 - 29 mmol/L [facility] Creatinine [Mass/Vol] 4.18 mg/dL High 0.72 - 1.25 mg/dL [facility] GFR/1.73 sq M.predicted (S/P/Bld) [Vol rate/Area] 15.6 mL/min Low - PINF [facility] Comment on above: Calculation based on the Chronic Kidney Disease Epidemiology Collaboration (CKD-EPI) equation refit without adjustment for race Glucose [Mass/Vol] 98 mg/dL 74 - 100 mg/dL [facility] Interpretation and review of laboratory results Abnormal [facility] Potassium [Moles/Vol] 5.7 mmol/L High 3.5 - 5.1 mmol/L [facility] Comment on above: Plasma potassium macey ues may be up to 0.5 mmol/L lower than serum values. Protein [Mass/Vol] 7.7 g/dL 6.4 - 8.3 g/dL [facility] Sodium [Moles/Vol] 136 mmol/L 136 - 145 mmol/L [facility] Urea nitrogen [Mass/Vol] 48 mg/dL High 9 - 23 mg/d L [facility] ED Nursing Noteon 04-17-2025 ED Nursing Note Report called to [place]. Normal [facility] ED Nursing Note PIV placed, blood collected for lab work, pt states it hurts and he does not want an PIV left in, If I leave it he will rip it out. PIV Dc'd Normal [facility] ED Provider Noteon 5 ED Provider Note Normal [facility] - CoagulationOrde red By: Yifan Howard on 04-17-2025 PT Coag (Bld) [Time] s High 9.0 - 12.0 s [facility] PROTHROMBIN TIMEon 5 INR Coag (PPP) [Relative time] {INR} Critically high 0.9-1.1 [facility] Comment on above: Performed By: #### L AB320 ####Assisted Living Home Director: FENG CONSTANTINO ([phone])[facility] (SBHLAB)[address] [place] [address] [facility] PT Coag (PPP) [Time] s High 9.0-12.0 [facility] Comment on above: Performed By: #### L AB320 ####Assisted Living Home Director: FENGLINO VILLAGOMEZMitzyGEORGE ([phone])[facility] (SBHLAB)[address] [place] [address] [facility] PT Coag (Bld) [Time]Ordered By: Yifan Howrad on 04-17-2025 INR Coag (PPP) [Relative time] Critically high 0.9 - 1.1 [facility] Interpretation and review of laboratory results Abnormal [facility] Prothrombin Time w/INRon INR Coag (PPP) [Relative time] 10.8 {INR} Invalid Interpretation Code [facility] Comment on above: Order Comment: 412.2 Result Comment: CRIT ICAL VALUE CALLED TO LEXX BERG ([facility]) 04/17/25 0831 Brett Stack. RESULTS READ BACK BY SAME. Performed By: #### L 100.0100, L500.4050, L300.3900 #### [facility] [address] [facility] [address] PT Coag (PPP) [Time] 87.5 s High 11.7-14.9 [facility] Comment on above: Order Comment: 412.2 Performed By: #### L 100.0100, L500.4050, L300.3900 #### [facility] [address] [place], [address] CBC W/Diff, Automatedon 03-28 Absolute Lymph 0.94 X10 3/uL Normal 0.83-4.51 [facility] Comment on above: Order Comment: 412.2 Performed By: #### L 100.0100, L500.4050, L300.3900 #### [facility] [address] [place], [address] Absolute Neut 3.9 X10 3/uL Normal 2.0-7.7 [facility] Comment on above: Order Comment: 412.2 Performed By: #### L 100.0100, L500.4050, L300.3900 #### [facility] [address] [place], [address] Basophils/100 WBC (Bld) 1.7 % High 0-1 [facility] Comment on above: Order Comment: 412.2 Performed By: #### L 100.0100, L500.4050, L300.3900 #### [facility] [address] [place], [address] Eosinophils/100 WBC (Bld) 4.3 % Normal 0-5 [facility] Comment on above: Order Comment: 412.2 Performed By: #### L 100.0100, L500.4050, L300.3900 #### [facility] [address] [place], [address] Erythrocyte distribution width (RBC) [Ratio] 16.3 % High 11.6-14.6 [facility] Comment on above: Order Comment: 412.2 Performed By: #### L 100.0100, L500.4050, L300.3900 #### [facility] [address] [place], [address] Hematocrit (Bld) [Volume fraction] 29.3 % Low 40-54 [facility] Comment on above: Order Comment: 412.2 Performed By: #### L 100.0100, L500.4050, L300.3900 #### [facility] [address] [place], [address] Hemoglobin (Bld) [Mass/Vol] 9.4 g/dL Low 13.0-16.5 [facility] Comment on above: Order Comment: 412.2 Performed By: #### L 100.0100, L500.4050, L300.3900 #### [facility] [address] [place], [address] IG% 0.800 Normal 0.0-0.9 [facility] Comment on above: Order Comment: 412.2 Result Comment: IG% - Immature Granulocytes (promyelocytes, myelocytes and metamyelocytes) > 1% indicates that a LEFT SHIFT is Present. Performed By: #### L 100.0100, L500.4050, L300.3900 #### [facility] [address] [place], [address] Lymphocytes/100 WBC (Bld) 15.7 % Low 19-41 [facility] Comment on above: Order Comment: 412.2 Performed By: #### L 100.0100, L500.4050, L300.3900 #### [facility] [address] [place], [address] MCH (RBC) [Entitic mass] 29.7 pg Normal 27.0-32.0 [facility] Comment on above: Order Comment: 412.2 Performed By: #### L 100.0100, L500.4050, L300.3900 #### [facility] [address] [place], [address] MCHC (RBC) [Mass/Vol] 32.1 g/dL Normal 32-36 [facility] Comment on above: Order Comment: 412.2 Performed By: #### L 100.0100, L500.4050, L300.3900 #### [facility] [address] [place], [address] MCV (RBC) [Entitic vol] 92.4 fL Normal 80-94 [facility] Comment on above: Order Comment: 412.2 Performed By: #### L 100.0100, L500.4050, L300.3900 #### [facility] [address] [place], [address] Monocytes/100 WBC (Bld) 13.0 % High 0-10 [facility] Comment on above: Order Comment: 412.2 Performed By: #### L 100.0100, L500.4050, L300.3900 #### [facility] [address] [place], [address] Neutrophils/100 WBC (Bld) 64.5 % Normal 47-70 [facility] Comment on above: Order Comment: 412.2 Performed By: #### L 100.0100, L500.4050, L300.3900 #### [facility] [address] [place], [address] Nucleated RBC (Bld) [#/Vol] 0 10*3/uL Normal 0-5 [facility] Comment on above: Order Comment: 412.2 Performed By: #### L 100.0100, L500.4050, L300.3900 #### [facility] [address] [place], [address] Platelet mean volume (Bld) [Entitic vol] 9.5 fL Normal 6.2-12.0 [facility] Comment on above: Order Comment: 412.2 Performed By: #### L 100.0100, L500.4050, L300.3900 #### [facility] [address] [place], [address] Platelets (Bld) [#/Vol] 397 10*3/uL Normal 150-450 [facility] Comment on above: Order Comment: 412.2 Performed By: #### L 100.0100, L500.4050, L300.3900 #### [facility] [address] [place], [address] RBC (Bld) [#/Vol] 3.17 10*6/uL Low 4.6-6.2 [facility] Comment on above: Order Comment: 412.2 Performed By: #### L 100.0100, L500.4050, L300.3900 #### [facility] [address] [place], [address] RDW SD 54.5 fl High 35.1-43.9 [facility] Comment on above: Order Comment: 412.2 Performed By: #### L 100.0100, L500.4050, L300.3900 #### [facility] [address] [place], [address] WBC (Bld) [#/Vol] 6.0 10*3/uL Normal 4.4-11.0 [facility] Comment on above: Order Comment: 412.2 Performed By: #### L 100.0100, L500.4050, L300.3900 #### [facility] [address] [place], [address] CT CHEST WO IV CONTRASTon CT CHEST WO IV CONTRAST Normal S [facility] Comprehensive Metabolic Prof ilon 04-16-2025 Albumin [Mass/Vol] 3.1 g/dL Low 3.5-5.0 [facility] Comment on above: Order Comment: 412.2 Performed By: #### L 100.0100, L500.4050, L300.3900 #### [facility] [address] [place], [address] Albumin/Globulin [Mass ratio] 0.7 {ratio} Low 0.9-2.4 [facility] Comment on above: Order Comment: 412.2 Performed By: #### L 100.0100, L500.4050, L300.3900 #### [facility] [address] [place], [address] ALK PHOS 331 U/L High 40-129 [facility] Comment on above: Order Comment: 412.2 Performed By: #### L 100.0100, L500.4050, L300.3900 #### [facility] [address] [place], [address] ALT [Catalytic activity/Vol] 13 U/L Normal <=46 [facility] Comment on above: Order Comment: 412.2 Performed By: #### L 100.0100, L500.4050, L300.3900 #### [facility] [address] [place], [address] AST [Catalytic activity/Vol] 41 U/L High <=37 [facility] Comment on above: Order Comment: 412.2 Performed By: #### L 100.0100, L500.4050, L300.3900 #### [facility] [address] [place], [address] Bilirubin [Mass/Vol] 0.68 mg/dL Normal 0.00-1.30 [facility] Comment on above: Order Comment: 412.2 Performed By: #### L 100.0100, L500.4050, L300.3900 #### [facility] [address] [place], [address] BUN/CRE 13.0 RATIO Normal 10-20 [facility] Comment on above: Order Comment: 412.2 Performed By: #### L 100.0100, L500.4050,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 Performed By: #### L AB15, [id number] ####Assisted Living Home Director: FENG CONSTANTINO ([phone])[facility] (SBHLAB)[address] [place] [address] [place] GLOMERULAR FILTRATION RATE ML/MIN/1.73 SQ M.PREDICTED 19.1 mL/min/1.73m*2 Low >60.0 [facility] Comment on above: Result Comment: Calc ulation based on the Chronic Kidney Disease Epidemiology Collaboration (CKD-EPI) equation refit without adjustment for race Performed By: #### L 15, [id number] ####Assisted Living Home Director: FENG CONSTANTINO ([phone])[facility] (HLAB)[address] Glucose [Mass/Vol] 94 mg/dL Normal 74-100 [facility] Comment on above: Performed By: #### L AB15, [id number] ####Assisted Living Home Director: FENG CONSTANTINO ([phone])[facility] (SBHLAB)[address] [place] [address] [place] Potassium [Moles/Vol] 5.5 mmol/L High 3.5-5.1 [facility] Comment on above: Result Comment: [facility] potassium values may be up to 0.5 mmol/L lower than serum values. Performed By: #### L AB15, [id number] ####Assisted Living Home Director: FENG CONSTANTINO ([phone])[facility] (SBHLAB)[address] Sodium [Moles/Vol] 140 mmol/L Normal 136-145 [facility] Comment on above: Performed By: #### L AB15, [id number] ####Assisted Living Home Director: FENG FELIXCER ([phone])[facility] (SBHLAB)[address] Urea nitrogen [Mass/Vol] 34 mg/dL High 9-23 [facility] Comment on above: Performed By: #### L AB15, [id number] ####Assisted Living Home Director: FENG VILLAGOMEZALESIA ([phone])[facility]ENTER[facility] (SBHLAB)[address] Basic metabolic 1998 panelon 04-05-2025 Anion gap [Moles/Vol] 10 mmol/L 3 - 13 mmol/L [facility] Calcium [Mass/Vol] 9 mg/dL 8.4 - 10. 2 mg/dL [facility] [employer] Chloride [Moles/Vol] 101 mmol/L 98 - 10 7 mmol/L [facility] CO2 [Moles/Vol] 29 mmol/L 22 - 29 mmol/L [facility] Creatinine [Mass/Vol] 3.52 mg/dL High 0.72 - 1.25 mg/dL [facility] GFR/1.73 sq M.predicted (S/P/Bld) [Vol rate/Area] 19.1 mL/min Low - PINF [facility] Comment on above: Calculation based on the Chronic Kidney Disease Epidemiology Collaboration (CKD-EPI) equation refit without adjustment for race Glucose [Mass/Vol] 94 mg/dL 74 - 100 mg/dL [facility] Interpretation and review of laboratory results Abnormal [facility] Potassium [Moles/Vol] 5.5 mmol/L High 3.5 - 5.1 mmol/L [facility] Comment on above: Plasma potassium macey ues may be up to 0.5 mmol/L lower than serum values. Sodium [Moles/Vol] 140 mmol/L 136 - 145 mmol/L [facility] Urea nitrogen [Mass/Vol] 34 mg/dL High 9 - 23 mg/d L [facility] CBC W Auto Differential pane l (Bld)Ordered By: Yifan Howard on 04-05-2025 Basophils (Bld) [#/Vol] 0.1 10*3/uL 0.0 - 0.2 10*3/uL [facility] Basophils/100 WBC (Bld) 1.5 % 0.0 - 2.0 % [facility] Eosinophils (Bld) [#/Vol] 0.2 10*3/uL 0.0 - 0.5 10*3/uL [facility] Eosinophils/100 WBC (Bld) 3.5 % 0.0 - 6.0 % [facility] Erythrocyte distribution width (RBC) [Ratio] 16 % High 11.5 - 15.0 % [facility] Hematocrit (Bld) [Volume fraction] 30.1 % Low 40.0 - 52.0 % [facility] Hemoglobin (Bld) [Mass/Vol] 9.3 g/dL Low 13.0 - 18.0 g/dL [facility] [employer] Immature granulocytes (Bld) [#/Vol] 0 10*3/uL NINF - 0.1 10*3/uL [facility] Immature granulocytes/100 WBC (Bld) 0.4 % 0.0 - 2.0 % [facility] Interpretation and review of laboratory results Abnormal [facility] Lymphocytes (Bld) [#/Vol] 1.1 10*3/uL 1.0 - 4.3 10*3/uL [facility] Lymphocytes/100 WBC (Bld) 15.4 % 15.0 - 45.0 % [facility] MCH (RBC) [Entitic mass] 29.5 pg 26. 0 - 34.0 pg [facility] [employer] MCHC (RBC) [Mass/Vol] 30.9 % 30.5 - 36.0 % [facility] MCV (RBC) [Entitic vol] 95.6 fL 77.0 - 99.0 fL [facility] Monocytes (Bld) [#/Vol] 0.9 10*3/uL 0.0 - 0.9 10*3/uL [facility] Monocytes/100 WBC (Bld) 13.2 % High 5.0 - 13.0 % [facility] Neutrophils (Bld) [#/Vol] 4.5 10*3/uL 1.8 - 7.5 10*3/uL [facility] Neutrophils/100 WBC (Bld) 66 % 38.0 - 82.0 % [facility] Nucleated RBC/100 WBC (Bld) [Ratio] 0 % [facility] Platelet mean volume (Bld) [Entitic vol] 8.8 fL Low 9.0 - 12.7 fL [facility] Platelets (Bld) [#/Vol] 329 10*3/uL 140 - 440 10*3/uL [facility] RBC (Bld) [#/Vol] 3.15 10*6/uL Low 4.40 - 5.9 0 10*6/uL [facility] WBC (Bld) [#/Vol] 6.8 10*3/uL 3.6 - 10.7 10*3/uL [facility] CBC WITH AUTO DIFFERENTIALon 04-05-2025 Basophils (Bld) [#/Vol] 0.1 10*3/uL Normal 0.0-0.2 [facility] Comment on above: Performed By: #### L [id number] ####Assisted Living Home Director: FENG CONSTANTINO ([phone])[facility] (SB[facility])[address] [place] [address] Basophils/100 WBC (Bld) 1.5 % Normal 0.0-2.0 [facility] Comment on above: Performed By: #### L [id number] ####Assisted Living Home Director: FENG CONSTANTINO ([id number])[facility] (SBAB)[address] [place] [address] Eosinophils (Bld) [#/Vol] 0.2 10*3/uL Normal 0.0-0.5 [facility] Comment on above: Performed By: #### L [id number] ####Assisted Living Home Director: FENG CONSTANTINO ([id number])[facility] (SB[facility])[address] [place] [address] Eosinophils/100 WBC (Bld) 3.5 % Normal 0.0-6.0 [facility] Comment on above: Performed By: #### L [id number] ####Assisted Living Home Director: FENG CONSTANTINO ([phone])[facility] (SB[facility])[address] [place] [address] Erythrocyte distribution width (RBC) [Ratio] 16.0 % High 11.5-15.0 [facility] Comment on above: Performed By: #### L [id number] ####Assisted Living Home Director: FENG VILLAGOMEZMitzyGEORGE ([phone])[facility] (SBHLAB)[address] Hematocrit (Bld) [Volume fraction] 30.1 % Low 40.0-52.0 [facility] Comment on above: Performed By: #### L [id number] ####Assisted Living Home Director: FENG VILLAGOMEZALESIA ([phone])[facility] ([facility] Hemoglobin (Bld) [Mass/Vol] 9.3 g/dL Low 13.0-18.0 [facility] Comment on above: Performed By: #### L [id number] ####Assisted Living Home Director: FENG COLEGEORGE ([phone])[facility] ([facility])[address] IMMATURE GRANS % 0.4 % Normal 0.0-2.0 [facility] Comment on above: Performed By: #### L [id number] ####Assisted Living Home Director: FENG COLEGEORGE ([phone])[facility] ([facility])[address] [place] [address] IMMATURE GRANS ABSOLUTE 0.0 10*3/uL Normal <0.1 [facility] Comment on above: Performed By: #### L [id number] ####Assisted Living Home Director: FENG COLEGEORGE ([phone])[facility] Lymphocytes (Bld) [#/Vol] 1.1 10*3/uL Normal 1.0-4.3 [facility] Comment on above: Performed By: #### L [id number] ####Assisted Living Home Director: FENG COLEGEORGE ([phone])[facility] [place] [address] [place] Lymphocytes/100 WBC (Bld) 15.4 % Normal 15.0-45.0 [facility] Comment on above: Performed By: #### L [id number] ####Assisted Living Home Director: FENG COLEGEORGE ([phone])[facility] [place] (SBHL[facility])[address] MCH (RBC) [Entitic mass] 29.5 pg Normal 26.0-34.0 [facility] Comment on above: Performed By: #### L [id number] ####Assisted Living [facility] Director: FENG VILLAGOMEZMitzyGEORGE ([id number])[facility] ([facility])[address] MCHC 30.9 % Normal 30.5-36.0 [facility] Comment on above: Performed By: #### L [id number] ####Assisted Living [facility] Director: FENG COLEGEORGE ([id number])[facility] [place] (SBHLAB)[address] MCV (RBC) [Entitic vol] 95.6 fL Normal 77.0-99.0 [facility] Comment on above: Performed By: #### L [id number] ####Assisted Living [facility] Director: FENG CONSTANTINO ([id number])[facility] [facility] ([facility] [place] [address] Monocytes (Bld) [#/Vol] 0.9 10*3/uL Normal 0.0-0.9 [facility] Comment on above: Performed By: #### L [id number] ####Assisted Living Home Director: FENG COLEGEORGE ([id number])[facility] [place] ([facility])[address] Monocytes/100 WBC (Bld) 13.2 % High 5.0-13.0 S [facility] Comment on above: Performed By: #### L [id number] ####Assisted Living Home Director: FENG CONSTANTINO ([id number])[facility] [place] ([facility])[address] [place] [address] [place] NEUTROPHILS ABSOLUTE 4.5 10*3/uL Normal 1.8-7.5 [facility] Comment on above: Performed By: #### L [id number] ####Assisted Living Home Director: FENG CONSTANTINO ([id number])[facility] [place] ([facility])[address] Neutrophils/100 WBC (Bld) 66.0 % Normal 38.0-82.0 [facility] Comment on above: Performed By: #### L [id number] ####Assisted Living Home Director: FENG CONSTANTINO ([id number])[facility] [place] ([facility])[address] NRBC 0.0 /100 WBCs Normal 0.0-2.0 [facility] Comment on above: Performed By: #### L [id number] ####Assisted Living Home Director: FENG CONSTANTINO ([id number])[facility] [place] ([facility])[address] Platelet mean volume (Bld) [Entitic vol] 8.8 fL Low 9.0-12.7 [facility] Comment on above: Performed By: #### L [id number] ####Assisted Living Home Director: FENG CONSTANTINO ([id number])[facility] [place] ([facility])[address] [place] [address] [place] Platelets (Bld) [#/Vol] 329 10*3/uL Normal 140-440 [facility] Comment on above: Performed By: #### L [id number] ####Assisted Living Home Director: FENG CONSTANTINO ([id number])[facility] [place] ([facility])[address] [place] [address] [place] RBC (Bld) [#/Vol] 3.15 10*6/uL Low 4.40-5.90 [facility] Comment on above: Performed By: #### L [id number] ####Assisted Living Home Director: FENG CONSTANTINO ([id number])[facility] [place] ([facility])[address] [place] [address] [place] WBC (Bld) [#/Vol] 6.8 10*3/uL Normal 3.6-10.7 [facility] Comment on above: Performed By: #### L [id number] ####Assisted Living Home Director: FENG CONSTANTINO ([id number])[facility] [place] [facility] ECG 12-LEADon 04-05-2025 ECG 12-LEAD IMPRESSION: Atrial flutter with varied AV block, Right axis deviation Repol abnrm, severe global ischemia (LM/MVD) Prolonged QT interval Electronically Signed On 04-05-2025 10:13:24 EDT by Dieter Villegas Normal [facility] ED Nursing Noteon 04-05-2025 ED Nursing Note Dialysis at bedside. Normal [facility] ED Nursing Note Pt has no complaints at this time. Normal [facility] ED Nursing Note Normal [facility] ED Provider Noteon ED Provider Note Normal [facility] HIGH SENSITIVITY TROPONIN, S ERIAL BASELINEon 04-05-2025 TROPONIN HS SERIAL BASELINE 36 ng/L High <=35 [facility] Comment on above: Result Comment: In i ndividuals presenting with symptoms > 2h, a baseline troponin <= 5 ng/L suggests acutecardiac injury is unlikely and further serial testing is generally not indicated. Performed By: #### L AB15, [id number] ####Assisted Living Home Director: FENG CONSTANTINO ([id number])[facility] HIGH SENSITIVITY TROPONIN, S ERIAL, SECOND TESTon 04-05-2025 2H TROPONIN HS (SERIAL 2ND TROPONIN) 29 ng/L Normal <=35 [facility] Comment on above: Result Comment: Risi ng or falling troponin delta between 2 ??? 15 ng/L as compared to baseline value requires a 3rd serial troponin Performed By: #### L [id number] ####Assisted Living Home Director: FENG CONSTANTINO ([id number])[facility] [place] (SBAB)[address] Laboratory - Coagulationon 0 04-05-2025 PT Coag (Bld) [Time] 26.3 s High 9.0 - 12.0 s [facility] No Panel Informationon 04-05 2h Troponin HS (Serial 2nd Troponin) 29 ng/L NINF - 35 ng/L [facility] Comment on above: Rising or falling tr oponin delta between 2 15 ng/L as compared to baseline value requires a 3rd serial troponin Interpretation and review of laboratory results Normal [facility] Interpretation and review of laboratory results Abnormal [facility] Troponin HS Serial Baseline 36 ng/L High NINF - 35 ng/L [facility] Comment on above: In individuals prese nting with symptoms > 2h, a baseline troponin <= 5 ng/L suggests acute cardiac injury is unlikely and further serial testing is generally not indicated. [facility] P Edgar 0 degrees [facility] DE Interval 0 ms [facility] QRS Edgar 101 degrees [facility] QRSD Interval 102 ms [facility]val 361 ms [facility] QTC Interval 510 ms [facility] T Wave Edgar 0 degrees [facility] Atrial flutter with varied AV block, Right axis deviation Repol abnrm, severe global ischemia (LM/MVD) Prolonged QT interval Electronically Signed On 04-05-2025 10:13:24 EDT by Dieter Villegas CV Dieter Iyer MD - 04/05/2025 IMPRESSION: Atrial flutter with varied AV block, Right axis deviation Repol abnrm, severe global ischemia (LM/MVD) Prolonged QT interval Electronically Signed On 04-05-2025 10:13:24 EDT by Dieter Villegas [facility] Nursing Noteon 04-05-2025 Nursing Note Normal [facility] PROTHROMBIN TIMEon INR Coag (PPP) [Relative time] 2.6 {INR} High 0.9-1.1 [facility] Comment on above: Result Comment: Vaughn mmended [...] Myocardial Infarction Performed By: #### L [id number] ####Assisted Living Home Director: FENG CONSTANTINO ([id number])[facility] [place] (SB[facility]AB)[address] [place], [place] [id number] [place] [address] PT Coag (PPP) [Time] 26.3 s High 9.0-12.0 [facility] Comment on above: Performed By: #### L [id number] ####Assisted Living Home Director: FENG CONSTANTINO ([id number])[facility] ([facility])[address] [place] [address] [facility] PT Coag (Bld) [Time]on 04-05 INR Coag (PPP) [Relative time] 2.6 {INR} High 0.9 - 1.1 [facility] Comment on above: Recommended Anticoag ulant [...] Interpretation and review of laboratory results Abnormal [facility] Protime w/INR Fingerstickon 04-05-2025 INR Coag (PPP) [Relative time] 2.7 {INR} Normal [facility] Comment on above: Result Comment: Crit ical Value > 4.0 Performed By: #### L 100.0100, L500.4050, L300.3900 #### [facility] [address] [place], [address] Protime [place] 28.2 SEC High 11.7-14.9 [facility] Comment on above: Performed By: #### L 100.0100, L500.4050, L300.3900 #### [facility] [address] [place], [address] Vital signson 04-05-2025 Heart rate 120 /min bpm [facility] [employer] XR Chest 2 Viewson Cardiomegaly with median [...] Electronically Signed Date/Time: 04/05/2025 11:36 AM EDT [facility] Patient Name: JUN SNYDER [...] the spine are present at multiple levels. [facility] Devonte Bocanegra MD - 04/05/2025 Patient [...] Electronically Signed Date/Time: 04/05/2025 11:36 AM EDT [facility] Radiology Study observation (narrative) [facility] alth XR Chest 2 ViewsOrdered By: Devonte Bocanegra on 04-05-2025 [facility] Work Phone: 36on 04-04-2025 36 noted Normal [facility] 36 Normal [facility] 36 Patient is still in facility. I spoke with his nurse, Chandrika, and she stated that he is suppose to be discharging around 04/26. She is not sure where he will be going. I will call paper machine back tender to that date and speak with the perinatal social worker. Normal [facility] 36on 04-02-2025 36 Called patient to confirm appointment with Maryann in [place] 04/03/25, and he is at [facility]. Spoke to Rosa and left message for nurse to call about appointment. Normal [facility] CBC W/Diff, Automatedon 07-0 Absolute Lymph 0.83 X10 3/uL Normal 0.83-4.51 [facility] Comment on above: Order Comment: 412.2 Performed By: #### L 100.0100, L500.4050, L300.3900 #### [facility] [address] [place], [address] Absolute Neut 4.2 X10 3/uL Normal 2.0-7.7 [facility] Comment on above: Order Comment: 412.2 Performed By: #### L 100.0100, L500.4050, L300.3900 #### [facility] [address] [place], [address] Basophils/100 WBC (Bld) 1.9 % High 0-1 [facility] Comment on above: Order Comment: 412.2 Performed By: #### L 100.0100, L500.4050, L300.3900 #### [facility] [address] [place], [address] Eosinophils/100 WBC (Bld) 3.5 % Normal 0-5 [facility] Comment on above: Order Comment: 412.2 Performed By: #### L 100.0100, L500.4050, L300.3900 #### [facility] [address] [place], [address] Erythrocyte distribution width (RBC) [Ratio] 16.3 % High 11.6-14.6 [facility] Comment on above: Order Comment: 412.2 Performed By: #### L 100.0100, L500.4050, L300.3900 #### [facility] [address] [place], [address] Hematocrit (Bld) [Volume fraction] 32.8 % Low 40-54 [facility] Comment on above: Order Comment: 412.2 Performed By: #### L 100.0100, L500.4050, L300.3900 #### [facility] [address] [place], [address] Hemoglobin (Bld) [Mass/Vol] 10.1 g/dL Low 13.0-16.5 [facility] Comment on above: Order Comment: 412.2 Performed By: #### L 100.0100, L500.4050, L300.3900 #### [facility] [address] [place], [address] IG% 0.500 Normal 0.0-0.9 [facility] Comment on above: Order Comment: 412.2 Result Comment: IG% - Immature Granulocytes (promyelocytes, myelocytes and metamyelocytes) > 1% indicates that a LEFT SHIFT is Present. Performed By: #### L 100.0100, L500.4050, L300.3900 #### [facility] [address] [place], [address] Lymphocytes/100 WBC (Bld) 13.2 % Low 19-41 [facility] Comment on above: Order Comment: 412.2 Performed By: #### L 100.0100, L500.4050, L300.3900 #### [facility] [address] [place], [address] MCH (RBC) [Entitic mass] 30.1 pg Normal 27.0-32.0 [facility] Comment on above: Order Comment: 412.2 Performed By: #### L 100.0100, L500.4050, L300.3900 #### [facility] [address] [place], [address] MCHC (RBC) [Mass/Vol] 30.8 g/dL Low 32-36 [facility] Comment on above: Order Comment: 412.2 Performed By: #### L 100.0100, L500.4050, L300.3900 #### [facility] [address] [place], [address] MCV (RBC) [Entitic vol] 97.6 fL High 80-94 [facility] Comment on above: Order Comment: 412.2 Performed By: #### L 100.0100, L500.4050, L300.3900 #### [facility] [address] [place], [address] Monocytes/100 WBC (Bld) 14.3 % High 0-10 [facility] Comment on above: Order Comment: 412.2 Performed By: #### L 100.0100, L500.4050, L300.3900 #### [facility] [address] [place], [address] Neutrophils/100 WBC (Bld) 66.6 % Normal 47-70 [facility] Comment on above: Order Comment: 412.2 Performed By: #### L 100.0100, L500.4050, L300.3900 #### [facility] [address] [place], [address] Nucleated RBC (Bld) [#/Vol] 0 10*3/uL Normal 0-5 [facility] Comment on above: Order Comment: 412.2 Performed By: #### L 100.0100, L500.4050, L300.3900 #### [facility] [address] [place], [address] Platelet mean volume (Bld) [Entitic vol] 9.4 fL Normal 6.2-12.0 [facility] Comment on above: Order Comment: 412.2 Performed By: #### L 100.0100, L500.4050, L300.3900 #### [facility] [address] [place], [address] Platelets (Bld) [#/Vol] 383 10*3/uL Normal 150-450 [facility] Comment on above: Order Comment: 412.2 Performed By: #### L 100.0100, L500.4050, L300.3900 #### [facility] [address] [place], [address] RBC (Bld) [#/Vol] 3.36 10*6/uL Low 4.6-6.2 [facility] Comment on above: Order Comment: 412.2 Performed By: #### L 100.0100, L500.4050, L300.3900 #### [facility] [address] [place], [address] RDW SD 58.6 fl High 35.1-43.9 [facility] Comment on above: Order Comment: 412.2 Performed By: #### L 100.0100, L500.4050, L300.3900 #### [facility] [address] [place], [address] WBC (Bld) [#/Vol] 6.3 10*3/uL Normal 4.4-11.0 [facility] Comment on above: Order Comment: 412.2 Performed By: #### L 100.0100, L500.4050, L300.3900 #### [facility] [address] [place], [address] Comprehensive Metabolic Prof [facility] 04-02-2025 Albumin [Mass/Vol] 3.2 g/dL Low 3.5-5.0 [facility] Comment on above: Order Comment: 412.2 Performed By: #### L 100.0100, L500.4050, L300.3900 #### [facility] [address] [place], [address] Albumin/Globulin [Mass ratio] 0.8 {ratio} Low 0.9-2.4 [facility] Comment on above: Order Comment: 412.2 Performed By: #### L 100.0100, L500.4050, L300.3900 #### [facility] [address] [place], [address] ALK PHOS 229 U/L High 40-129 [facility] Comment on above: Order Comment: 412.2 Performed By: #### L 100.0100, L500.4050, L300.3900 #### [facility] [address] [place], [address] ALT [Catalytic activity/Vol] 20 U/L Normal <=46 [facility] Comment on above: Order Comment: 412.2 Performed By: #### L 100.0100, L500.4050, L300.3900 #### [facility] [address] [place], [address] AST [Catalytic activity/Vol] 46 U/L High <=37 [facility] Comment on above: Order Comment: 412.2 Performed By: #### L 100.0100, L500.4050, L300.3900 #### [facility] [address] [place], [address] Bilirubin [Mass/Vol] 0.74 mg/dL Normal 0.00-1.30 [facility] Comment on above: Order Comment: 412.2 Performed By: #### L 100.0100, L500.4050, L300.3900 #### [facility] [address] [place], [address] BUN/CRE 8.2 RATIO Low 10-20 [facility] Comment on above: Order Comment: 412.2 Performed By: #### L 100.0100, L500.4050, L300.3900 #### [facility] [address] [place], [address] Calcium [Mass/Vol] 9.9 mg/dL Normal 7.6-11.0 [facility] Comment on above: Order Comment: 412.2 Performed By: #### L 100.0100, L500.4050, L300.3900 #### [facility] [address] [place], [address] Chloride [Moles/Vol] 98 mmol/L Normal 98-108 [facility] Comment on above: Order Comment: 412.2 Performed By: #### L 100.0100, L500.4050, L300.3900 #### [facility] [address] [place], [address] CO2 [Moles/Vol] 25.9 mmol/L Normal 21.0-32.0 [facility] Comment on above: Order Comment: 412.2 Performed By: #### L 100.0100, L500.4050, L300.3900 #### [facility] [address] [place], [address] Creatinine [Mass/Vol] 5.14 mg/dL High 0.70-1.20 [facility] Comment on above: Order Comment: 412.2 Performed By: #### L 100.0100, L500.4050, L300.3900 #### [facility] [address] [place], [address] GAP 12 Normal 5-15 [facility] Comment on above: Order Comment: 412.2 Performed By: #### L 100.0100, L500.4050, L300.3900 #### [facility] [address] [place], [address] GFR/1.73 sq M.predicted among non-blacks MDRD (S/P/Bld) [Vol rate/Area] 12 mL/min/{1.73_m2} Low >60 [facility] Comment on above: Order Comment: 412.2 Result Comment: mL/m in/1.73m2 CKD-EPI Creatinine Equation (2020) Performed By: #### L 100.0100, L500.4050, L300.3900 #### [facility] [address] [place], [address] Globulin (S) [Mass/Vol] 4.2 g/dL Normal 2.2-4.2 [facility] Comment on above: Order Comment: 412.2 Performed By: #### L 100.0100, L500.4050, L300.3900 #### [facility] [address] [place], [address] Glucose [Mass/Vol] 84 mg/dL Normal 70-99 [facility] Comment on above: Order Comment: 412.2 Performed By: #### L 100.0100, L500.4050, L300.3900 #### [facility] [address] [place], [address] Potassium [Moles/Vol] 5.6 mmol/L High 3.3-5.1 [facility] Comment on above: Order Comment: 412.2 Performed By: #### L 100.0100, L500.4050, L300.3900 #### [facility] [address] [place], [address] Sodium [Moles/Vol] 136 mmol/L Normal 133-145 [facility] Comment on above: Order Comment: 412.2 Performed By: #### L 100.0100, L500.4050, L300.3900 #### [facility] [address] [place], [address] T PROT 7.5 g/dL Normal 5.9-8.4 [facility] Comment on above: Order Comment: 412.2 Performed By: #### L 100.0100, L500.4050, L300.3900 #### [facility] [address] [place], [address] Urea nitrogen [Mass/Vol] 42 mg/dL High 4-19 [facility] Comment on above: Order Comment: 412.2 Performed By: #### L 100.0100, L500.4050, L300.3900 #### [facility] [address] [place], [address] Prothrombin Time w/INRon INR Coag (PPP) [Relative time] 2.1 {INR} Normal [facility] Comment on above: Order Comment: 412.2 Performed By: #### L 100.0100, L500.4050, L300.3900 #### [facility] [address] [place], [address] PT Coag (PPP) [Time] 23.9 s High 11.7-14.9 [facility] Comment on above: Order Comment: 412.2 Performed By: #### L 100.0100, L500.4050, L300.3900 #### [facility] [address] [place], [address] Prothrombin Time w/INRon INR Coag (PPP) [Relative time] 3.4 {INR} Normal [facility] Comment on above: Performed By: #### L 300.3900 #### [facility] [address] [place], [address] PT Coag (PPP) [Time] 35.4 s High 11.7-14.9 [facility] Comment on above: Performed By: #### L 300.3900 #### [facility] [address] [place], [place], [address] 36on 03-26-2025 36 3rd attempt unable to speak to Sabino she's not in the office at them moment. Left message to call the office back to schedule [facility] 36 Sabino has been notified the visit can not be virtual [facility] 36 Name of Caller: Bobbi Moncada Contact Reason for Appointment: Change 04/05/25 hospital follow up to a vv. Please call and advise. [place] Name[place] [facility] CBC W/Diff, Automatedon 02-27 Anisocytosis Ql (Bld) 1+ Normal [facility] Comment on above: Order Comment: 412.2 Performed By: #### L 300.3900 #### [facility] [address] [place], [place], [address] Comprehensive Metabolic Prof ilon 03-26-2025 Albumin [Mass/Vol] 3.2 g/dL Low 3.5-5.0 [facility] Comment on above: Order Comment: 412.2 Performed By: #### L 300.3900 #### [facility] [address] [place], [address] Albumin/Globulin [Mass ratio] 0.8 {ratio} Low 0.9-2.4 [facility] Comment on above: Order Comment: 412.2 Performed By: #### L 300.3900 #### [facility] [address] [place], [address] ALK PHOS 238 U/L High 40-129 [facility] Comment on above: Order Comment: 412.2 Performed By: #### L 300.3900 #### [facility] [address] [place], [address] ALT [Catalytic activity/Vol] 21 U/L Normal <=46 [facility] Comment on above: Order Comment: 412.2 Performed By: #### L 300.3900 #### [facility] [address] [place], [address] AST [Catalytic activity/Vol] 53 U/L High <=37 [facility] Comment on above: Order Comment: 412.2 Performed By: #### L 300.3900 #### [facility] [address] [place], [address] Bilirubin [Mass/Vol] 0.58 mg/dL Normal 0.00-1.30 [facility] Comment on above: Order Comment: 412.2 Performed By: #### L 300.3900 #### [facility] [address] [place], [address] BUN/CRE 6.9 RATIO Low 10-20 [facility] Comment on above: Order Comment: 412.2 Performed By: #### L 300.3900 #### [facility] [address] [place], [address] Calcium [Mass/Vol] 9.6 mg/dL Normal 7.6-11.0 [facility] Comment on above: Order Comment: 412.2 Performed By: #### L 300.3900 #### [facility] [address] [place], [address] Chloride [Moles/Vol] 102 mmol/L Normal 98-108 [facility] Comment on above: Order Comment: 412.2 Performed By: #### L 300.3900 #### [facility] [address] [place], [address] CO2 [Moles/Vol] 22.8 mmol/L Normal 21.0-32.0 [facility] Comment on above: Order Comment: 412.2 Performed By: #### L 300.3900 #### [facility] [address] [place], [address] Creatinine [Mass/Vol] 5.21 mg/dL High 0.70-1.20 [facility] Comment on above: Order Comment: 412.2 Performed By: #### L 300.3900 #### [facility] [address] [place], [address] GAP 14 Normal 5-15 [facility] Comment on above: Order Comment: 412.2 Performed By: #### L 300.3900 #### [facility] [address] [place], [address] GFR/1.73 sq M.predicted among non-blacks MDRD (S/P/Bld) [Vol rate/Area] 12 mL/min/{1.73_m2} Low >60 [facility] Comment on above: Order Comment: 412.2 Result Comment: mL/m in/1.73m2 CKD-EPI Creatinine Equation (2020) Performed By: #### L 300.3900 #### [facility] [address] [place], [address] Globulin (S) [Mass/Vol] 4.1 g/dL Normal 2.2-4.2 [facility] Comment on above: Order Comment: 412.2 Performed By: #### L 300.3900 #### [facility] [address] [place], [address] Glucose [Mass/Vol] 87 mg/dL Normal 70-99 [facility] Comment on above: Order Comment: 412.2 Performed By: #### L 300.3900 #### [facility] [address] [place], [address] Potassium [Moles/Vol] 4.9 mmol/L Normal 3.3-5.1 [facility] Comment on above: Order Comment: 412.2 Performed By: #### L 300.3900 #### [facility] [address] [place], [address] Sodium [Moles/Vol] 139 mmol/L Normal 133-145 [facility] Comment on above: Order Comment: 412.2 Performed By: #### L 300.3900 #### [facility] [address] [place], [address] T PROT 7.2 g/dL Normal 5.9-8.4 [facility] Comment on above: Order Comment: 412.2 Performed By: #### L 300.3900 #### [facility] [address] [place], [address] Urea nitrogen [Mass/Vol] 36 mg/dL High 4-19 [facility] Comment on above: Order Comment: 412.2 Performed By: #### L 300.3900 #### [facility] [address] [place], [address] Prothrombin Time w/INRon INR Coag (PPP) [Relative time] 3.3 {INR} Normal [facility] Comment on above: Order Comment: 412.2 Performed By: #### L 300.3900 #### [facility] [address] [place], [address] PT Coag (PPP) [Time] 34.4 s High 11.7-14.9 [facility] Comment on above: Order Comment: 412.2 Performed By: #### L 300.3900 #### [facility] [address] [place], [address] 36on 03-22-2025 36 Patient discharged to [facility] on 03/21 - please follow [facility] International normalized rat io (INR) calculationOrdered By: Kayley Melendrez on 03-22-2025 INR Coag (Bld) [Relative time] 2.9 {INR} [facility] Prothrombin Time w/INRon INR Coag (PPP) [Relative time] 2.9 {INR} [facility] Comment on above: Performed By: #### L 100.0100, L500.4050, L300.3900 #### [facility] [address] [place], [place], [id number] PT Coag (PPP) [Time] 30.7 s High 11.7-14.9 [facility] Comment on above: Performed By: #### L 100.0100, L500.4050, L300.3900 #### [facility] [address] [place], [place], [address] Prothrombin timeOrdered By: Kayley Melendrez on 03-22-2025 PT Coag (PPP) [Time] 30.7 s High 11.7-14.9 [facility] 30on 03-21-2025 30 Normal [facility] [id number] 03-21-2025 [id number] [facility] [id number] MAR, Labs & Discharge med list transmitted to [facility] Return - [facility] via [employer] per TCC request. Electronically signed by NELSON Rodrigues [facility] [phone] [facility] [phone] [facility] APTTon 03-21-2025 aPTT Coag (Bld) [Time] 50.7 s High 20.0-30.5 [facility] Comment on above: Result Comment: ARPAN Kaplan COMMENTS:NOTE: The therapeutic time for Heparin anticoagulation, based on Xa activity inhibition, is an APTT of 46-80 seconds. Performed By: #### L AB320, [id number] ####Assisted Living Home Director: DOMENICA JARA ([phone])[facility])[address] [place] [address] CBC (HEMOGRAM)on 03-21-2025 Erythrocyte distribution width (RBC) [Ratio] 19.9 % High 11.5-15.0 [facility] Comment on above: Performed By: #### L AB294 ####Assisted Living Home Director: DOMENICA JARA ([phone])[facility])[address] [place] [address] Hematocrit (Bld) [Volume fraction] 29.2 % Low 40.0-52.0 [facility] Comment on above: Performed By: #### L AB294 ####Assisted Living Home Director: DOMENICA JARA ([phone])[address] Hemoglobin (Bld) [Mass/Vol] 8.8 g/dL Low 13.0-18.0 [facility] Comment on above: Performed By: #### L AB294 ####Assisted Living Home Director: DOMENICA JARA ([id number])[address] MCH (RBC) [Entitic mass] 30.2 pg Normal 26.0-34.0 [facility] Comment on above: Performed By: #### L AB294 ####Assisted Living Home Director: DOMENICA JARA ([phone])[address] MCHC 30.1 % Low 30.5-36.0 [facility] Comment on above: Performed By: #### L AB294 ####Assisted Living Home Director: DOMENICA JARA ([id number])[address] MCV (RBC) [Entitic vol] 100.3 fL High 77.0-99.0 S [facility] Comment on above: Performed By: #### L AB294 ####Assisted Living Home Director: DOMENICA JARA ([phone])[facility])[address] [place] [address] Platelet mean volume (Bld) [Entitic vol] 8.9 fL Low 9.0-12.7 [facility] Comment on above: Performed By: #### L AB294 ####Assisted Living Home Director: DOMENICA JARA ([phone])[facility])[address] [place] [address] Platelets (Bld) [#/Vol] 271 10*3/uL Normal 140-440 [facility] Comment on above: Performed By: #### L AB294 ####Assisted Living Home Director: DOMENICA AJRA ([phone])[facility])[address] [place] [address] RBC (Bld) [#/Vol] 2.91 10*6/uL Low 4.40-5.90 [facility] Comment on above: Performed By: #### L AB294 ####Assisted Living Home Director: DOMENICA JARA ([phone])[facility])[address] [place] [address] WBC (Bld) [#/Vol] 8.0 10*3/uL Normal 3.6-10.7 [facility] Comment on above: Performed By: #### L AB294 ####Assisted Living Home Director: DOMENICA JARA ([phone])[address] CBC panel Auto (Bld)on 03-21 Erythrocyte distribution width (RBC) [Ratio] 19.9 % High 11.5 - 15.0 % [facility] Hematocrit (Bld) [Volume fraction] 29.2 % Low 40.0 - 52.0 % [facility] Hemoglobin (Bld) [Mass/Vol] 8.8 g/dL Low 13.0 - 18.0 g/dL [facility] Interpretation and review of laboratory results Abnormal [facility] MCH (RBC) [Entitic mass] 30.2 pg 26. 0 - 34.0 pg [facility] MCHC (RBC) [Mass/Vol] 30.1 % Low 30.5 - 36.0 % [facility] MCV (RBC) [Entitic vol] 100.3 fL High 77.0 - 99.0 fL [facility] Platelet mean volume (Bld) [Entitic vol] 8.9 fL Low 9.0 - 12.7 fL [facility] Platelets (Bld) [#/Vol] 271 10*3/uL 140 - 440 10*3/uL [facility] RBC (Bld) [#/Vol] 2.91 10*6/uL Low 4.40 - 5.9 0 10*6/uL [facility] WBC (Bld) [#/Vol] 8 10*3/uL 3.6 - 10.7 10*3/uL [facility] COMPREHENSIVE METABOLIC PANE Victor M 03-21-2025 Albumin [Mass/Vol] 2.0 g/dL Low 3.5-5.0 [facility] Comment on above: Performed By: #### L AB17, [id number] ####Assisted Living Home Director: DOMENICA JARA ([phone])[facility])[address] [place] [address] ALP [Catalytic activity/Vol] 217 U/L High 40-150 [facility] Comment on above: Performed By: #### L AB17, [id number] ####Assisted Living Home Director: DOMENICA JARA ([phone])[facility])[address] [place] [address] ALT [Catalytic activity/Vol] 13 U/L Normal <40 [facility] Comment on above: Performed By: #### L AB17, [id number] ####Assisted Living Home Director: DOMENICA JARA ([phone])[facility])[address] [place] [address] Anion gap [Moles/Vol] 8 mmol/L Normal 3-13 [facility] Comment on above: Performed By: #### L AB17, [id number] ####Assisted Living Home Director: DOMENICA JARA ([phone])[facility])[address] [place] [address] AST [Catalytic activity/Vol] 59 U/L High <34 [facility] Comment on above: Performed By: #### L AB17, [id number] ####Assisted Living Home Director: DOMENICA JARA ([phone])[facility])[address] [place] [address] [place] Bilirubin [Mass/Vol] 0.9 mg/dL Normal <1.2 [facility] Comment on above: Performed By: #### L AB17, [id number] ####Assisted Living Home Director: DOMENICA JARA ([phone])[facility] ([facility])[address] [place] [address] Calcium [Mass/Vol] 9.0 mg/dL Normal 8.4-10.2 [facility] Comment on above: Performed By: #### L AB17, [id number] ####Assisted Living Home Director: DOMENICA JARA ([id number])[facility] ([facility])[address] [place] [address] Chloride [Moles/Vol] 99 mmol/L Normal 98-107 [facility] Comment on above: Performed By: #### L AB17, [id number] ####Assisted Living Home Director: DOMENICA JARA ([id number])[facility] ([facility])[address] [place] [address] [place] CO2 [Moles/Vol] 27 mmol/L Normal 22-29 [facility] Comment on above: Performed By: #### L AB17, [id number] ####Assisted Living Home Director: DOMENICA JARA ([phone])[facility] ([facility])[address] [place] [address] [place] Creatinine [Mass/Vol] 3.36 mg/dL High 0.72-1.25 [facility] Comment on above: Performed By: #### L AB17, [id number] ####Assisted Living Home Director: DOMENICA JARA ([phone])[facility] ([facility])[address] [place] [address] [place] GLOMERULAR FILTRATION RATE ML/MIN/1.73 SQ M.PREDICTED 20.2 mL/min/1.73m*2 Low >60.0 [facility] Comment on above: Result Comment: Calc ulation based on the Chronic Kidney Disease Epidemiology Collaboration (CKD-EPI) equation refit without adjustment for race Performed By: #### L AB17, [id number] ####Assisted Living Home Director: DOMENICA JARA ([id number])[facility] ([facility])[address] [place] [address] Glucose [Mass/Vol] 91 mg/dL Normal 74-100 [facility] Comment on above: Performed By: #### L AB17, [id number] ####Assisted Living Home Director: DOMENICA JARA ([phone])[facility])[address] [place] [address] Potassium [Moles/Vol] 5.0 mmol/L Normal 3.5-5.1 [facility] Comment on above: Result Comment: [facility] potassium values may be up to 0.5 mmol/L lower than serum values. Performed By: #### L AB17, [id number] ####Assisted Living Home Director: DOMENICA JARA ([id number])[facility] ([facility])[address] [place] [address] Protein [Mass/Vol] 7.2 g/dL Normal 6.4-8.3 [facility] Comment on above: Performed By: #### L AB17, [id number] ####Assisted Living Home Director: DOMENICA JARA ([phone])[facility] ([facility])[address] [place] [address] Sodium [Moles/Vol] 134 mmol/L Low 136-145 [facility] Comment on above: Performed By: #### L AB17, [id number] ####Assisted Living Home Director: DOMENICA JARA ([phone])[facility])[address] [place] [address] Urea nitrogen [Mass/Vol] 24 mg/dL High 9-23 [facility] Comment on above: Performed By: #### L AB17, [id number] ####Assisted Living Home Director: DOMENICA JARA ([phone])[facility])[address] [place] [address] Comprehensive metabolic 1998 panelon 03-21-2025 Albumin [Mass/Vol] 2 g/dL Low 3.5 - 5.0 g/dL [facility] ALP [Catalytic activity/Vol] 217 U/L High 40 - 150 U/L [facility] ALT [Catalytic activity/Vol] 13 [facility] Anion gap [Moles/Vol] 8 mmol/L 3 - 13 mmol/L [facility] AST [Catalytic activity/Vol] 59 U/L High NINF - 34 U/L [facility] Bilirubin [Mass/Vol] 0.9 mg/dL NINF - 1.2 mg/dL [facility] Calcium [Mass/Vol] 9 mg/dL 8.4 - 10. 2 mg/dL [facility] Chloride [Moles/Vol] 99 mmol/L 98 - 10 7 mmol/L [facility] CO2 [Moles/Vol] 27 mmol/L 22 - 29 mmol/L [facility] Creatinine [Mass/Vol] 3.36 mg/dL High 0.72 - 1.25 mg/dL [facility] GFR/1.73 sq M.predicted (S/P/Bld) [Vol rate/Area] 20.2 mL/min Low - PINF [facility] Comment on above: Calculation based on the Chronic Kidney Disease Epidemiology Collaboration (CKD-EPI) equation refit without adjustment for race Glucose [Mass/Vol] 91 mg/dL 74 - 100 mg/dL [facility] Interpretation and review of laboratory results Abnormal [facility] Potassium [Moles/Vol] 5 mmol/L 3.5 - 5.1 mmol/L [facility] Comment on above: Plasma potassium macey ues may be up to 0.5 mmol/L lower than serum values. Protein [Mass/Vol] 7.2 g/dL 6.4 - 8.3 g/dL [facility] Sodium [Moles/Vol] 134 mmol/L Low 136 - 145 mmol/L [facility] Urea nitrogen [Mass/Vol] 24 mg/dL High 9 - 23 mg/d L [facility] - Chemistry and C hemistry - challengeon 03-21-2025 Glucose [Mass/Vol] 88 mg/dL 70 - 100 mg/dL [facility] Magnesium [Mass/Vol] 1.8 mg/dL 1.6 - 2 .6 mg/dL [facility] - Coagulationon 0 03-21-2025 PT Coag (Bld) [Time] 29 s High 9.0 - 12.0 s [facility] MAGNESIUMon 03-21-2025 Magnesium [Mass/Vol] 1.8 mg/dL Normal 1.6-2.6 [facility] Comment on above: Result Comment: ARPAN R COMMENTS:Higher values can be expected in females during menses. Performed By: #### L AB17, [id number] ####Assisted Living Home Director: DOMENICA JARA ([phone])[facility] ([facility])[address] [place] [address] Magnesium [Mass/Vol]on 03-21 Interpretation and review of laboratory results Normal [facility] Higher values can be expected in females during menses. [facility] No Panel Informationon 03-21 Interpretation and review of laboratory results Normal [facility] Performed by: [place] [address] CLIA ID: [id number] [facility] Interpretation and review of laboratory results Abnormal [facility] Nursing Noteon 03-21-2025 Nursing Note Educated pt on importance of prescribed medications. Pt still refused. Normal [facility] PROTHROMBIN TIMEon INR Coag (PPP) [Relative time] 2.9 {INR} High 0.9-1.1 [facility] Comment on above: Result Comment: Vaughn mmended [...] Myocardial Infarction Performed By: #### L AB320, [id number] ####Assisted Living Home Director: DOMENICA JARA ([id number])[facility] ([facility])[address] [place] [address] PT Coag (PPP) [Time] 29.0 s High 9.0-12.0 [facility] Comment on above: Performed By: #### L AB320, [id number] ####Assisted Living Home Director: DOMENICA JARA ([id number])[facility] ([facility])[address] [place] [address] [facility] PT Coag (Bld) [Time]on 03-21 INR Coag (PPP) [Relative time] 2.9 {INR} High 0.9 - 1.1 [facility] Comment on above: Recommended Anticoag ulant [...] Infarction Progress Noteon 03-21-2025 Progress Note Normal [facility] Progress Note Patient quit smoking in September. Accepting of handout with contact information for additional support to remain quit if neccesary. Normal [facility] Progress Note Normal [facility] Progress Note Normal [facility] Progress Note Normal [facility] aPTT Coag (Bld) [Time]on aPTT Coag (PPP) [Time] 50.7 s High 20.0 - 30.5 s [facility] NOTE: The therapeutic time for Heparin anticoagulation, based on Xa activity inhibition, is an APTT of 46-80 seconds. [facility] 30on 03-20-2025 30 Normal [facility] [id number] 03-20-2025 [id number] [facility] 36on 03-20-2025 36 Patient was re-admitted on 03/13. Inpatient consult team is following his care. Normal [facility] APTTon 03-20-2025 aPTT Coag (Bld) [Time] 68.9 s High 20.0-30.5 [facility] Comment on above: Result Comment: ARPAN Kaplan COMMENTS:NOTE: The therapeutic time for Heparin anticoagulation, based on Xa activity inhibition, is an APTT of 46-80 seconds. Performed By: #### L AB325 ####Assisted Living Home Director: DOMENICA JARA ([id number])[facility] ([facility])[address] [place] [address] aPTT Coag (Bld) [Time] 61.5 s High 20.0-30.5 [facility] Comment on above: Result Comment: ARPAN Kaplan COMMENTS:NOTE: The therapeutic time for Heparin anticoagulation, based on Xa activity inhibition, is an APTT of 46-80 seconds. Performed By: #### L AB325 ####Assisted Living Home Director: DOMENICA JARA ([phone])[facility])[address] [place] [address] aPTT Coag (Bld) [Time] 44.1 s High 20.0-30.5 [facility] Comment on above: Result Comment: ARPAN Kaplan COMMENTS:NOTE: The therapeutic time for Heparin anticoagulation, based on Xa activity inhibition, is an APTT of 46-80 seconds. Performed By: #### L AB320, [id number] ####Assisted Living Home Director: DOMENICA JARA ([id number])[facility])[address] [place] [address] CBC (HEMOGRAM)on 03-20-2025 Erythrocyte distribution width (RBC) [Ratio] 20.2 % High 11.5-15.0 [facility] Comment on above: Performed By: #### L AB294 ####Assisted Living Home Director: DOMENICA JARA ([phone])[facility])[address] [place] [address] Hematocrit (Bld) [Volume fraction] 30.3 % Low 40.0-52.0 [facility] Comment on above: Performed By: #### L AB294 ####Assisted Living Home Director: DOMENICA JARA ([phone])[facility])[address] [place] [address] Hemoglobin (Bld) [Mass/Vol] 9.2 g/dL Low 13.0-18.0 [facility] Comment on above: Performed By: #### L AB294 ####Assisted Living Home Director: DOMENICA JARA ([phone])[facility] ([facility])[address] [place] [address] MCH (RBC) [Entitic mass] 30.7 pg Normal 26.0-34.0 [facility] Comment on above: Performed By: #### L AB294 ####Assisted Living Home Director: DOMENICA JARA ([phone])[facility])[address] [place] [address] MCHC 30.4 % Low 30.5-36.0 [facility] Comment on above: Performed By: #### L AB294 ####Assisted Living Home Director: DOMENICA JARA ([phone])[facility] ([facility])[address] [place] [address] MCV (RBC) [Entitic vol] 101.0 fL High 77.0-99.0 [facility] Comment on above: Performed By: #### L AB294 ####Assisted Living Home Director: DOMENICA JARA ([phone])[facility])[address] [place] [address] Platelet mean volume (Bld) [Entitic vol] 9.2 fL Normal 9.0-12.7 [facility] Comment on above: Performed By: #### L AB294 ####Assisted Living Home Director: DOMENICA JARA ([phone])[facility])[address] [place] [address] Platelets (Bld) [#/Vol] 308 10*3/uL Normal 140-440 [facility] Comment on above: Performed By: #### L AB294 ####Assisted Living Home Director: DOMENICA JARA ([phone])[facility])[address] [place] [address] RBC (Bld) [#/Vol] 3.00 10*6/uL Low 4.40-5.90 [facility] Comment on above: Performed By: #### L AB294 ####Assisted Living Home Director: DOMENICA JARA ([id number])[facility])[address] [place] [address] WBC (Bld) [#/Vol] 8.1 10*3/uL Normal 3.6-10.7 [facility] Comment on above: Performed By: #### L AB294 ####Assisted Living Home Director: DOMENICA JARA ([id number])[facility] ([facility])[address] [place] [address] CBC panel Auto (Bld)Ordered By: Anu Graham on 03-20-2025 Erythrocyte distribution width (RBC) [Ratio] 20.2 % High 11.5 - 15.0 % [facility] Hematocrit (Bld) [Volume fraction] 30.3 % Low 40.0 - 52.0 % [facility] Hemoglobin (Bld) [Mass/Vol] 9.2 g/dL Low 13.0 - 18.0 g/dL [facility] Interpretation and review of laboratory results Abnormal [facility] MCH (RBC) [Entitic mass] 30.7 pg 26. 0 - 34.0 pg [facility] MCHC (RBC) [Mass/Vol] 30.4 % Low 30.5 - 36.0 % [facility] MCV (RBC) [Entitic vol] 101 fL High 77.0 - 99.0 fL [facility] Platelet mean volume (Bld) [Entitic vol] 9.2 fL 9.0 - 12.7 fL [facility] Platelets (Bld) [#/Vol] 308 10*3/uL 140 - 440 10*3/uL [facility] RBC (Bld) [#/Vol] 3 10*6/uL Low 4.40 - 5.9 0 10*6/uL [facility] WBC (Bld) [#/Vol] 8.1 10*3/uL 3.6 - 10.7 10*3/uL [facility] COMPREHENSIVE METABOLIC PANE Victor M 03-20-2025 Albumin [Mass/Vol] 1.9 g/dL Low 3.5-5.0 [facility] Comment on above: Performed By: #### L AB103, LAB17 ####Assisted Living Home Director: DOMENICA JARA ([phone])[facility] ([facility])[address] [place] [address] ALP [Catalytic activity/Vol] 194 U/L High 40-150 [facility] Comment on above: Performed By: #### L AB103, LAB17 ####Assisted Living Home Director: DOMENICA AJRA ([phone])[facility] ([facility] [place] [address] [place] ALT [Catalytic activity/Vol] 13 U/L Normal <40 [facility] Comment on above: Performed By: #### L AB103, LAB17 ####Assisted Living Home Director: DOMENICA JARA ([phone])[facility])[address] [place] [address] [place] Anion gap [Moles/Vol] 10 mmol/L Normal 3-13 [facility] Comment on above: Performed By: #### L AB103, LAB17 ####Assisted Living Home Director: DOMENICA JARA ([id number])[facility] ([facility])[address] [place] [address] AST [Catalytic activity/Vol] 46 U/L High <34 [facility] Comment on above: Performed By: #### L 103, LAB17 ####Assisted Living Home Director: DOMENICA JARA ([phone])[facility] ([facility])[address] [place] [address] [place] Bilirubin [Mass/Vol] 0.8 mg/dL Normal <1.2 [facility] Comment on above: Performed By: #### L VARGHESE, LAB17 ####Assisted Living Home Director: DOMENICA JARA ([id number])[facility] ([facility])[address] [place] [address] [place] Calcium [Mass/Vol] 9.1 mg/dL Normal 8.4-10.2 [facility] Comment on above: Performed By: #### L AB103, LAB17 ####Assisted Living Home Director: DOMENICA JARA ([phone])[facility] ([facility])[address] [place] [address] [place] Chloride [Moles/Vol] 102 mmol/L Normal 98-107 [facility] Comment on above: Performed By: #### L AB103, LAB17 ####Assisted Living Home Director: DOMENICA JARA ([id number])[facility] ([facility])[address] [place] [address] [place] CO2 [Moles/Vol] 24 mmol/L Normal 22-29 [facility] Comment on above: Performed By: #### L AB103, LAB17 ####Assisted Living Home Director: DOMENICA JARA ([phone])[facility])[address] [place] [address] Creatinine [Mass/Vol] 4.28 mg/dL High 0.72-1.25 [facility] Comment on above: Performed By: #### L 103, LAB17 ####Assisted Living Home Director: DOMENICA JAAR ([phone])[facility])[address] [place] [address] GLOMERULAR FILTRATION RATE ML/MIN/1.73 SQ M.PREDICTED 15.1 mL/min/1.73m*2 Low >60.0 [facility] Comment on above: Result Comment: Calc ulation based on the Chronic Kidney Disease Epidemiology Collaboration (CKD-EPI) equation refit without adjustment for race Performed By: #### L VARGHESE, LAB17 ####Assisted Living Home Director: DOMENICA JARA ([phone])[facility])[address] [place] [address] Glucose [Mass/Vol] 91 mg/dL Normal 74-100 [facility] Comment on above: Performed By: #### Tameka KWONG, LAB17 ####Assisted Living Home Director: DOMENICA JARA ([id number])[address] Potassium [Moles/Vol] 5.3 mmol/L High 3.5-5.1 [facility] Comment on above: Result Comment: [facility] potassium values may be up to 0.5 mmol/L lower than serum values. Performed By: #### L AB103, LAB17 ####Assisted Living Home Director: DOMENICA JARA ([phone])[facility])[address] [place] [address] Protein [Mass/Vol] 7.3 g/dL Normal 6.4-8.3 [facility] Comment on above: Performed By: #### L AB103, LAB17 ####Assisted Living Home Director: DOMENICA JARA ([phone])[facility])[address] [place] [address] Sodium [Moles/Vol] 136 mmol/L Normal 136-145 [facility] Comment on above: Performed By: #### L AB103, LAB17 ####Assisted Living Home Director: DOMENICA JARA ([id number])[facility] ([facility])[address] [place] [address] Urea nitrogen [Mass/Vol] 32 mg/dL High 9-23 [facility] Comment on above: Performed By: #### L AB103, LAB17 ####Assisted Living Home Director: DOMENICA JARA ([phone])[facility] ([facility])[address] [place] [address] Comprehensive metabolic 1998 panelon 03-20-2025 Albumin [Mass/Vol] 1.9 g/dL Low 3.5 - 5.0 g/dL [facility] ALP [Catalytic activity/Vol] 194 U/L High 40 - 150 U/L [facility] ALT [Catalytic activity/Vol] 13 U/L NINF - 40 U/L [facility] Anion gap [Moles/Vol] 10 mmol/L 3 - 13 mmol/L [facility] AST [Catalytic activity/Vol] 46 U/L High NINF - 34 U/L [facility] Bilirubin [Mass/Vol] 0.8 mg/[facility]dL [facility] Calcium [Mass/Vol] 9.1 mg/dL 8.4 - 10. 2 mg/dL [facility] Chloride [Moles/Vol] 102 mmol/L 98 - 10 7 mmol/L [facility] CO2 [Moles/Vol] 24 mmol/L 22 - 29 mmol/L [facility] Creatinine [Mass/Vol] 4.28 mg/dL High 0.72 - 1.25 mg/dL [facility] GFR/1.73 sq M.predicted (S/P/Bld) [Vol rate/Area] 15.1 mL/min Low - PINF [facility] Comment on above: Calculation based on the Chronic Kidney Disease Epidemiology Collaboration (CKD-EPI) equation refit without adjustment for race Glucose [Mass/Vol] 91 mg/dL 74 - 100 mg/dL [facility] Interpretation and review of laboratory results Abnormal [facility] Potassium [Moles/Vol] 5.3 mmol/L High 3.5 - 5.1 mmol/L [facility] Comment on above: Plasma potassium macey ues may be up to 0.5 mmol/L lower than serum values. Protein [Mass/Vol] 7.3 g/dL 6.4 - 8.3 g/dL [facility] Sodium [Moles/Vol] 136 mmol/L 136 - 145 mmol/L [facility] Urea nitrogen [Mass/Vol] 32 mg/dL High 9 - 23 mg/d L [facility] HBV surface Ab IA Qnon 03-20 Interpretation: <8.0 Non-Reactive 8.0-11.9 Equivocal >= 12.0 Ab Detected Note: If an equivocal result is interpreted, an antibody status is unable to be determined. Collect new specimen if clinically indicated. [facility] HBV surface Ag IA Qlon 03-20 Interpretation and review of laboratory results Normal [facility] HEPATITIS B SURFACE ANTIBODY on 03-20-2025 HEPATITIS B VIRUS SURFACE AB <8.0 Normal [facility] Comment on above: Result Comment: ARPAN Kaplan COMMENTS:Interpretation:<8.0 Non-Reactive8.0-11.9 Equivocal>= 12.0 Ab DetectedNote: If an equivocal result is interpreted, an antibody status is unable to be determined. Collect new specimen if clinically indicated. Performed By: #### Tameka [id number], [id number] ####Assisted Living Home Director: DOMENICA JARA ([phone])[address] HEPATITIS B SURFACE ANTIGENo n 03-20-2025 HEPATITIS B VIRUS SURFACE AG Not detected Normal Not Detected [facility] Comment on above: Performed By: #### Tameka AB472, [id number] ####Assisted Living Home Director: DOMENICA JARA ([id number])[address] Laboratory - Chemistry and C hemistry - challengeon 03-20-2025 Magnesium [Mass/Vol] 2 mg/dL 1.6 - 2 .6 mg/dL [facility] Laboratory - Coagulationon 0 03-20-2025 PT Coag (Bld) [Time] 19.1 s High 9.0 - 12.0 s [facility] - Microbiology an d Antimicrobial susceptibilityon 03-20-2025 HBV surface Ag IA Ql Not detected Not Detected [facility] HBV surface Ab IA Qn mIU/mL [facility] MAGNESIUMon 03-20-2025 Magnesium [Mass/Vol] 2.0 mg/dL Normal 1.6-2.6 [facility] Comment on above: Result Comment: ORDE R COMMENTS:Higher values can be expected in females during menses. Performed By: #### L AB103, [id number] ####Assisted Living Home Director: DOMENICA JARA ([phone])[address] Magnesium [Mass/Vol]on 03-20 Interpretation and review of laboratory results Normal [facility] Higher values can be expected in females during menses. [facility] No Panel Informationon 03-20 [facility] Interpretation and review of laboratory results Abnormal [facility] Nursing Noteon 03-20-2025 Nursing Note Normal [facility] PROTHROMBIN TIMEon INR Coag (PPP) [Relative time] 1.9 {INR} High 0.9-1.1 [facility] Comment on above: Result Comment: Vaughn mmended [...] Myocardial Infarction Performed By: #### L AB320, [id number] ####Assisted Living Home Director: DOMENICA JARA ([id number])[facility] ([facility])[address] [place] [address] PT Coag (PPP) [Time] 19.1 s High 9.0-12.0 [facility] Comment on above: Performed By: #### L AB320, [id number] ####Assisted Living Home Director: DOMENICA JARA ([id number])[facility] ([facility])[address] [place] [address] [facility] PT Coag (Bld) [Time]on 03-20 INR Coag (PPP) [Relative time] 1.9 {INR} High 0.9 - 1.1 [facility] Comment on above: Recommended Anticoag ulant [...] Infarction Progress Noteon 03-20-2025 Progress Note Normal [facility] Progress Note Normal [facility] Progress Note Normal [facility] aPTT Coag (Bld) [Time]on aPTT Coag (PPP) [Time] 68.9 s High 20.0 - 30.5 s [facility] Interpretation and review of laboratory results Abnormal [facility] NOTE: The therapeutic time for Heparin anticoagulation, based on Xa activity inhibition, is an APTT of 46-80 seconds. [facility] aPTT Coag (PPP) [Time] 61.5 s High 20.0 - 30.5 s [facility] Interpretation and review of laboratory results Abnormal [facility] NOTE: The therapeutic time for Heparin anticoagulation, based on Xa activity inhibition, is an APTT of 46-80 seconds. [facility] aPTT Coag (PPP) [Time] 44.1 s High 20.0 - 30.5 s [facility] NOTE: The therapeutic time for Heparin anticoagulation, based on Xa activity inhibition, is an APTT of 46-80 seconds. [facility] 30on 03-19-2025 30 Normal [facility] 30 Normal [facility] [id number] 03-19-2025 [id number] Normal [facility] APTTon 03-19-2025 aPTT Coag (Bld) [Time] 47.3 s High 20.0-30.5 [facility] Comment on above: Result Comment: ARPAN Kaplan COMMENTS:NOTE: The therapeutic time for Heparin anticoagulation, based on Xa activity inhibition, is an APTT of 46-80 seconds. Performed By: #### L AB325 ####Assisted Living Home Director: DOMENICA JARA ([phone])[facility])[address] [place] [address] aPTT Coag (Bld) [Time] 46.4 s High 20.0-30.5 [facility] Comment on above: Result Comment: ARPAN Kaplan COMMENTS:NOTE: The therapeutic time for Heparin anticoagulation, based on Xa activity inhibition, is an APTT of 46-80 seconds. Performed By: #### L AB320, [id number] ####Assisted Living Home Director: DOMENICA JARA ([phone])[facility])[address] [place] [address] CBC (HEMOGRAM)on 03-19-2025 Erythrocyte distribution width (RBC) [Ratio] 20.8 % High 11.5-15.0 [facility] Comment on above: Performed By: #### L AB294 ####Assisted Living Home Director: DOMENICA JARA ([id number])[facility] ([facility])[address] [place] [address] Hematocrit (Bld) [Volume fraction] 30.4 % Low 40.0-52.0 [facility] Comment on above: Performed By: #### L AB294 ####Assisted Living Home Director: DOMENICA JARA ([id number])[address] Hemoglobin (Bld) [Mass/Vol] 8.9 g/dL Low 13.0-18.0 [facility] Comment on above: Performed By: #### L AB294 ####Assisted Living Home Director: DOMENICA JARA ([phone])[address] MCH (RBC) [Entitic mass] 29.9 pg Normal 26.0-34.0 [facility] Comment on above: Performed By: #### L AB294 ####Assisted Living Home Director: DOMENICA [phone])[facility])[address] [place] [address] MCHC 29.3 % Low 30.5-36.0 [facility] Comment on above: Performed By: #### L AB294 ####Assisted Living Home Director: DOMENICA JARA ([id number])[facility] ([facility])[address] [place] [address] MCV (RBC) [Entitic vol] 102.0 fL High 77.0-99.0 S [facility] Comment on above: Performed By: #### L AB294 ####Assisted Living Home Director: DOMENICA JARA ([phone])[facility])[address] [place] [address] Platelet mean volume (Bld) [Entitic vol] 9.3 fL Normal 9.0-12.7 [facility] Comment on above: Performed By: #### L AB294 ####Assisted Living Home Director: DOMENICA JARA ([id number])[facility] ([facility])[address] [place] [address] Platelets (Bld) [#/Vol] 320 10*3/uL Normal 140-440 [facility] Comment on above: Performed By: #### L AB294 ####Assisted Living Home Director: DOMENICA JARA ([phone])[facility])[address] [place] [address] RBC (Bld) [#/Vol] 2.98 10*6/uL Low 4.40-5.90 [facility] Comment on above: Performed By: #### L AB294 ####Assisted Living Home Director: DOMENICA JARA ([id number])[facility])[address] [place] [address] WBC (Bld) [#/Vol] 7.8 10*3/uL Normal 3.6-10.7 [facility] Comment on above: Performed By: #### L AB294 ####Assisted Living Home Director: DOMENICA JARA ([id number])[facility])[address] [place] [address] CBC panel Auto (Bld)Ordered By: Liseth Granado on 03-19-2025 Erythrocyte distribution width (RBC) [Ratio] 20.8 % High 11.5 - 15.0 % [facility] Hematocrit (Bld) [Volume fraction] 30.4 % Low 40.0 - 52.0 % [facility] Hemoglobin (Bld) [Mass/Vol] 8.9 g/dL Low 13.0 - 18.0 g/dL [facility] Interpretation and review of laboratory results Abnormal [facility] MCH (RBC) [Entitic mass] 29.9 pg 26. 0 - 34.0 pg [facility] MCHC (RBC) [Mass/Vol] 29.3 % Low 30.5 - 36.0 % [facility] MCV (RBC) [Entitic vol] 102 fL High 77.0 - 99.0 fL [facility] Platelet mean volume (Bld) [Entitic vol] 9.3 fL 9.0 - 12.7 fL [facility] Platelets (Bld) [#/Vol] 320 10*3/uL 140 - 440 10*3/uL [facility] RBC (Bld) [#/Vol] 2.98 10*6/uL Low 4.40 - 5.9 0 10*6/uL [facility] WBC (Bld) [#/Vol] 7.8 10*3/uL 3.6 - 10.7 10*3/uL [facility] COMPREHENSIVE METABOLIC PANE Victor M 03-19-2025 Albumin [Mass/Vol] 2.0 g/dL Low 3.5-5.0 [facility] Comment on above: Performed By: #### L AB17, [id number] ####Assisted Living Home Director: DOMENICA JARA ([id number])[facility] ([facility])[address] [place] [address] ALP [Catalytic activity/Vol] 221 U/L High 40-150 [facility] Comment on above: Performed By: #### L AB17, [id number] ####Assisted Living Home Director: DOMENICA JARA ([id number])[facility] ([facility])[address] [place] [address] ALT [Catalytic activity/Vol] 14 U/L Normal <40 [facility] Comment on above: Performed By: #### L AB17, [id number] ####Assisted Living Home Director: DOMENICA JARA ([id number])[facility] ([facility])[address] [place] [address] Anion gap [Moles/Vol] 8 mmol/L Normal 3-13 [facility] Comment on above: Performed By: #### L AB17, [id number] ####Assisted Living Home Director: DOMENICA JARA ([id number])[facility] ([facility])[address] [place] [address] AST [Catalytic activity/Vol] 52 U/L High <34 [facility] Comment on above: Performed By: #### L AB17, [id number] ####Assisted Living Home Director: DOMENICA JARA ([id number])[facility] ([facility])[address] [place] [address] Bilirubin [Mass/Vol] 0.9 mg/dL Normal <1.2 [facility] Comment on above: Performed By: #### L AB17, [id number] ####Assisted Living Home Director: DOMENICA JARA ([id number])[facility] ([facility])[address] [place] [address] Calcium [Mass/Vol] 9.0 mg/dL Normal 8.4-10.2 [facility] Comment on above: Performed By: #### L AB17, [id number] ####Assisted Living Home Director: DOMENICA JARA ([id number])[facility] ([facility])[address] [place] [address] [place] Chloride [Moles/Vol] 102 mmol/L Normal 98-107 [facility] Comment on above: Performed By: #### L AB17, [id number] ####Assisted Living Home Director: DOMEINCA JARA ([id number])[facility] ([facility])[address] [place] [address] [place] CO2 [Moles/Vol] 27 mmol/L Normal 22-29 [facility] Comment on above: Performed By: #### L AB17, [id number] ####Assisted Living Home Director: DOMENICA JARA ([phone])[facility] ([facility])[address] [place] [address] Creatinine [Mass/Vol] 3.67 mg/dL High 0.72-1.25 [facility] Comment on above: Performed By: #### L 17, [id number] ####Assisted Living Home Director: DOMENICA JARA ([phone])[facility])[address] [place] [address] GLOMERULAR FILTRATION RATE ML/MIN/1.73 SQ M.PREDICTED 18.2 mL/min/1.73m*2 Low >60.0 [facility] Comment on above: Result Comment: Calc ulation based on the Chronic Kidney Disease Epidemiology Collaboration (CKD-EPI) equation refit without adjustment for race Performed By: #### Tameka ISAAC17, [id number] ####Assisted Living Home Director: DOMENICA JARA ([phone])[facility])[address] [place] [address] Glucose [Mass/Vol] 85 mg/dL Normal 74-100 [facility] Comment on above: Performed By: #### Tameka ISAAC17, [id number] ####Assisted Living Home Director: DOMENICA JARA ([id number])[address] Potassium [Moles/Vol] 4.0 mmol/L Normal 3.5-5.1 [facility] Comment on above: Result Comment: [facility] potassium values may be up to 0.5 mmol/L lower than serum values. Performed By: #### Tameka ISAAC17, [id number] ####Assisted Living Home Director: DOMENICA JARA ([id number])[facility])[address] [place] [address] Protein [Mass/Vol] 7.4 g/dL Normal 6.4-8.3 [facility] Comment on above: Performed By: #### L AB17, [id number] ####Assisted Living Home Director: DOMENICA JARA ([id number])[address] Sodium [Moles/Vol] 137 mmol/L Normal 136-145 [facility] Comment on above: Performed By: #### L AB17, [id number] ####Assisted Living Home Director: DOMENICA JARA ([id number])[facility] ([facility])[address] [place] [address] Urea nitrogen [Mass/Vol] 24 mg/dL High 06-19 [facility] Comment on above: Performed By: #### L AB17, [id number] ####Assisted Living Home Director: DOMENICA JARA ([id number])[facility] ([facility])[address] [place] [address] Comprehensive metabolic 1998 panelOrdered By: Rikki Caballero on 03-19-2025 Albumin [Mass/Vol] 2 g/dL Low 3.5 - 5.0 g/dL [facility] ALP [Catalytic activity/Vol] 221 U/L High 40 - 150 U/L [facility] ALT [Catalytic activity/Vol] 14 U/L NINF - 40 U/L [facility] Anion gap [Moles/Vol] 8 mmol/L 3 - 13 mmol/L [facility] AST [Catalytic activity/Vol] 52 U/L High NINF - 34 U/L [facility] Bilirubin [Mass/Vol] 0.9 mg/dL NINF - 1.2 mg/dL [facility] Calcium [Mass/Vol] 9 mg/dL 8.4 - 10. 2 mg/dL [facility] Chloride [Moles/Vol] 102 mmol/L 98 - 10 7 mmol/L [facility] CO2 [Moles/Vol] 27 mmol/L 22 - 29 mmol/L [facility] Creatinine [Mass/Vol] 3.67 mg/dL High 0.72 - 1.25 mg/dL [facility] GFR/1.73 sq M.predicted (S/P/Bld) [Vol rate/Area] 18.2 mL/min Low - PINF [facility] Comment on above: Calculation based on the Chronic Kidney Disease Epidemiology Collaboration (CKD-EPI) equation refit without adjustment for race Glucose [Mass/Vol] 85 mg/dL 74 - 100 mg/dL [facility] Interpretation and review of laboratory results Abnormal [facility] Potassium [Moles/Vol] 4 mmol/L 3.5 - 5.1 mmol/L [facility] Comment on above: Plasma potassium macey ues may be up to 0.5 mmol/L lower than serum values. Protein [Mass/Vol] 7.4 g/dL 6.4 - 8.3 g/dL [facility] Sodium [Moles/Vol] 137 mmol/L 136 - 145 mmol/L [facility] Urea nitrogen [Mass/Vol] 24 mg/dL High 9 - 23 mg/d L [facility] Laboratory - Chemistry and C hemistry - challengeon 03-19-2025 Magnesium [Mass/Vol] 1.9 mg/dL 1.6 - 2 .6 mg/dL [facility] Laboratory - Coagulationon 0 03-19-2025 PT Coag (Bld) [Time] 17 s High 9.0 - 12.0 s [facility] MAGNESIUMon 03-19-2025 Magnesium [Mass/Vol] 1.9 mg/dL Normal 1.6-2.6 [facility] Comment on above: Result Comment: ARPAN Kaplan COMMENTS:Higher values can be expected in females during menses. Performed By: #### L AB17, [id number] ####Assisted Living Home Director: DOMENICA JARA ([phone])[address] Magnesium [Mass/Vol]on 03-19 Interpretation and review of laboratory results Normal [facility] Higher values can be expected in females during menses. [facility] No Panel Informationon 03-19 Interpretation and review of laboratory results Abnormal [facility] Nursing Noteon 03-19-2025 Nursing Note Wound vac suction failing-pt requesting wound vac removed for now. Black foam dressing removed and wound packed with saline-soaked gauze covered with DSD Normal [facility] Nursing Note Pt adamantly refusing telemetry at this time, ripped off monitor and threw to the floor Normal [facility] PROTHROMBIN TIMEon INR Coag (PPP) [Relative time] 1.6 {INR} High 0.9-1.1 [facility] Comment on above: Performed By: #### L AB320, [id number] ####Assisted Living Home Director: DOMENICA JARA ([id number])[facility] ([facility])[address] [place] [address] PT Coag (PPP) [Time] 17.0 s High 9.0-12.0 [facility] Comment on above: Performed By: #### L AB320, [id number] ####Assisted Living Home Director: DOMENICA JARA ([phone])[facility] ([facility])[address] [place] [address] PT Coag (Bld) [Time]on 03-19 INR Coag (PPP) [Relative time] 1.6 {INR} High 0.9 - 1.1 [facility] Progress Noteon 03-19-2025 Progress [facility] Progress Note Normal [facility] aPTT Coag (Bld) [Time]on aPTT Coag (PPP) [Time] 47.3 s High 20.0 - 30.5 s [facility] Interpretation and review of laboratory results Abnormal [facility] NOTE: The therapeutic time for Heparin anticoagulation, based on Xa activity inhibition, is an APTT of 46-80 seconds. [facility] aPTT Coag (PPP) [Time] 46.4 s High 20.0 - 30.5 s [facility] NOTE: The therapeutic time for Heparin anticoagulation, based on Xa activity inhibition, is an APTT of 46-80 seconds. [facility] APTTon 03-18-2025 aPTT Coag (Bld) [Time] 51.8 s High 20.0-30.5 [facility] Comment on above: Result Comment: ARPAN Kaplan COMMENTS:NOTE: The therapeutic time for Heparin anticoagulation, based on Xa activity inhibition, is an APTT of 46-80 seconds. Performed By: #### L AB325 ####Assisted Living Home Director: DOMENICA JARA ([id number])[facility] ([facility] [place] [address] aPTT Coag (Bld) [Time] 47.6 s High 20.0-30.5 [facility] Comment on above: Result Comment: ARPAN Kaplan COMMENTS:NOTE: The therapeutic time for Heparin anticoagulation, based on Xa activity inhibition, is an APTT of 46-80 seconds. Performed By: #### L AB325 ####Assisted Living Home Director: DOMENICA JARA ([phone])[facility])[address] [place] [address] aPTT Coag (Bld) [Time] 48.8 s High 20.0-30.5 [facility] Comment on above: Result Comment: ARPAN Kaplan COMMENTS:NOTE: The therapeutic time for Heparin anticoagulation, based on Xa activity inhibition, is an APTT of 46-80 seconds. Performed By: #### L AB325, [id number] ####Assisted Living Home Director: DOMENICA JARA ([id number])[facility])[address] [place] [address] CBC (HEMOGRAM)on 03-18-2025 Erythrocyte distribution width (RBC) [Ratio] 20.6 % High 11.5-15.0 [facility] Comment on above: Performed By: #### L AB294 ####Assisted Living Home Director: DOMENICA JARA ([id number])[facility] ([facility])[address] [place] [address] Hematocrit (Bld) [Volume fraction] 30.4 % Low 40.0-52.0 [facility] Comment on above: Performed By: #### L AB294 ####Assisted Living Home Director: DOMENICA JARA ([id number])[facility])[address] [place] [address] Hemoglobin (Bld) [Mass/Vol] 9.1 g/dL Low 13.0-18.0 [facility] Comment on above: Performed By: #### L AB294 ####Assisted Living Home Director: DOMENICA JARA ([phone])[facility])[address] [place] [address] MCH (RBC) [Entitic mass] 30.0 pg Normal 26.0-34.0 [facility] Comment on above: Performed By: #### L AB294 ####Assisted Living Home Director: DOMENICA JARA ([id number])[facility])[address] [place] [address] MCHC 29.9 % Low 30.5-36.0 [facility] Comment on above: Performed By: #### L AB294 ####Assisted Living Home Director: DOMENICA JARA ([id number])[facility] ([facility])[address] [place] [address] MCV (RBC) [Entitic vol] 100.3 fL High 77.0-99.0 [facility] Comment on above: Performed By: #### L AB294 ####Assisted Living Home Director: DOMENICA JARA ([id number])[facility] ([facility])[address] [place] [address] Platelet mean volume (Bld) [Entitic vol] 9.4 fL Normal 9.0-12.7 [facility] Comment on above: Performed By: #### L AB294 ####Assisted Living Home Director: DOMENICA JARA ([id number])[facility] ([facility])[address] [place] [address] Platelets (Bld) [#/Vol] 333 10*3/uL Normal 140-440 [facility] Comment on above: Performed By: #### L AB294 ####Assisted Living Home Director: DOMENICA JARA ([id number])[facility] ([facility])[address] [place] [address] RBC (Bld) [#/Vol] 3.03 10*6/uL Low 4.40-5.90 [facility] Comment on above: Performed By: #### L AB294 ####Assisted Living Home Director: DOMENICA JARA ([id number])[facility] ([facility])[address] [place] [address] WBC (Bld) [#/Vol] 7.6 10*3/uL Normal 3.6-10.7 [facility] Comment on above: Performed By: #### L AB294 ####Assisted Living Home Director: DOMENICA JARA ([phone])[facility])[address] [place] [address] CBC panel Auto (Bld)Ordered By: Haley Vitale on 03-18-2025 Erythrocyte distribution width (RBC) [Ratio] 20.6 % High 11.5 - 15.0 % [facility] Hematocrit (Bld) [Volume fraction] 30.4 % Low 40.0 - 52.0 % [facility] Hemoglobin (Bld) [Mass/Vol] 9.1 g/dL Low 13.0 - 18.0 g/dL [facility] Hospital Interpretation and review of laboratory results Abnormal [facility] MCH (RBC) [Entitic mass] 30 pg 26. 0 - 34.0 pg [facility] MCHC (RBC) [Mass/Vol] 29.9 % Low 30.5 - 36.0 % [facility] MCV (RBC) [Entitic vol] 100.3 fL High 77.0 - 99.0 fL [facility] Platelet mean volume (Bld) [Entitic vol] 9.4 fL 9.0 - 12.7 fL [facility] Platelets (Bld) [#/Vol] 333 10*3/uL 140 - 440 10*3/uL [facility] RBC (Bld) [#/Vol] 3.03 10*6/uL Low 4.40 - 5.9 0 10*6/uL [facility] WBC (Bld) [#/Vol] 7.6 10*3/uL 3.6 - 10.7 10*3/uL [facility] COMPREHENSIVE METABOLIC PANE Victor M 03-18-2025 Albumin [Mass/Vol] 2.0 g/dL Low 3.5-5.0 [facility] Comment on above: Performed By: #### L AB103, LAB17 ####Assisted Living Home Director: DOMENICA JARA ([phone])[address] ALP [Catalytic activity/Vol] 241 U/L High 40-150 [facility] Comment on above: Performed By: #### L AB103, LAB17 ####Assisted Living Home Director: DOMENICA JARA ([phone])[address] ALT [Catalytic activity/Vol] 11 U/L Normal <40 [facility] Comment on above: Performed By: #### L AB103, LAB17 ####Assisted Living Home Director: DOMENICA JARA ([id number])[address] [place] [address] [place] Anion gap [Moles/Vol] 10 mmol/L Normal 3-13 [facility] Comment on above: Performed By: #### L AB103, LAB17 ####Assisted Living Home Director: DOMENICA JARA ([phone])[facility] ([facility])[address] [place] [address] AST [Catalytic activity/Vol] 50 U/L High <34 [facility] Comment on above: Performed By: #### L AB103, LAB17 ####Assisted Living Home Director: DOMENICA JARA ([id number])[facility] ([facility])[address] [place] [address] Bilirubin [Mass/Vol] 0.8 mg/dL Normal <1.2 [facility] Comment on above: Performed By: #### Tameka KWONG, LAB17 ####Assisted Living Home Director: DOMENICA JARA ([phone])[facility] ([facility])[address] [place] [address] Calcium [Mass/Vol] 9.0 mg/dL Normal 8.4-10.2 [facility] Comment on above: Performed By: #### Tameka KWONG, LAB17 ####Assisted Living Home Director: DOMENICA JARA ([phone])[facility] ([facility])[address] [place] [address] [place] Chloride [Moles/Vol] 100 mmol/L Normal 98-107 [facility] Comment on above: Performed By: #### L VARGHESE, LAB17 ####Assisted Living Home Director: DOMENICA JARA ([phone])[facility] ([facility])[address] [place] [address] [place] CO2 [Moles/Vol] 29 mmol/L Normal 22-29 [facility] Comment on above: Performed By: #### L AB103, LAB17 ####Assisted Living Home Director: DOMENICA JARA ([phone])[facility] ([facility])[address] [place] [address] [place] Creatinine [Mass/Vol] 2.64 mg/dL High 0.72-1.25 [facility] Comment on above: Performed By: #### L AB103, LAB17 ####Assisted Living Home Director: DOMENICA JARA ([phone])[facility])[address] [place] [address] GLOMERULAR FILTRATION RATE ML/MIN/1.73 SQ M.PREDICTED 27.0 mL/min/1.73m*2 Low >60.0 [facility] Comment on above: Result Comment: Calc ulation based on the Chronic Kidney Disease Epidemiology Collaboration (CKD-EPI) equation refit without adjustment for race Performed By: #### L AB103, LAB17 ####Assisted Living Home Director: DOMENICA JARA ([phone])[address] Glucose [Mass/Vol] 73 mg/dL Low 74-100 [facility] Comment on above: Performed By: #### L VARGHESE, LAB17 ####Assisted Living Home Director: DOMENICA JARA ([phone])[address] Potassium [Moles/Vol] 3.4 mmol/L Low 3.5-5.1 [facility] Comment on above: Result Comment: [facility] potassium values may be up to 0.5 mmol/L lower than serum values. Performed By: #### L 103, LAB17 ####Assisted Living Home Director: DOMENICA JARA ([phone])[address] Protein [Mass/Vol] 7.3 g/dL Normal 6.4-8.3 [facility] Comment on above: Performed By: #### L AB103, LAB17 ####Assisted Living Home Director: DOMENICA JARA ([phone])[facility])[address] [place] [address] Sodium [Moles/Vol] 139 mmol/L Normal 136-145 [facility] Comment on above: Performed By: #### L AB103, LAB17 ####Assisted Living Home Director: DOMENICA JARA ([phone])[place] [address] [place] Urea nitrogen [Mass/Vol] 16 mg/dL Normal 9-23 [facility] Comment on above: Performed By: #### L AB103, LAB17 ####Assisted Living Home Director: DOMENICA JARA ([phone])[facility] ([facility])[address] [place] [address] Comprehensive metabolic 1998 panelon 03-18-2025 Albumin [Mass/Vol] 2 g/dL Low 3.5 - 5.0 g/dL [facility] ALP [Catalytic activity/Vol] 241 U/L High 40 - 150 U/L [facility] ALT [Catalytic activity/Vol] 11 U/L NINF - 40 U/L [facility] Anion gap [Moles/Vol] 10 mmol/L 3 - 13 mmol/L [facility] AST [Catalytic activity/Vol] 50 U/L High NINF - 34 U/L [facility] Bilirubin [Mass/Vol] 0.8 mg/dL NINF - 1.2 mg/dL [facility] Calcium [Mass/Vol] 9 mg/dL 8.4 - 10. 2 mg/dL [facility] Chloride [Moles/Vol] 100 mmol/L 98 - 10 7 mmol/L [facility] CO2 [Moles/Vol] 29 mmol/L 22 - 29 mmol/L [facility] Creatinine [Mass/Vol] 2.64 mg/dL High 0.72 - 1.25 mg/dL [facility] GFR/1.73 sq M.predicted (S/P/Bld) [Vol rate/Area] 27 mL/min Low - PINF [facility] Comment on above: Calculation based on the Chronic Kidney Disease Epidemiology Collaboration (CKD-EPI) equation refit without adjustment for race Glucose [Mass/Vol] 73 mg/dL Low 74 - 100 mg/dL [facility] Interpretation and review of laboratory results Abnormal [facility] Potassium [Moles/Vol] 3.4 mmol/L Low 3.5 - 5.1 mmol/L [facility] Comment on above: Plasma potassium macey ues may be up to 0.5 mmol/L lower than serum values. Protein [Mass/Vol] 7.3 g/dL 6.4 - 8.3 g/dL [facility] Sodium [Moles/Vol] 139 mmol/L 136 - 145 mmol/L [facility] Urea nitrogen [Mass/Vol] 16 mg/dL 9 - 23 mg/d L [facility] Laboratory - Chemistry and C hemistry - challengeon 03-18-2025 Magnesium [Mass/Vol] 1.9 mg/dL 1.6 - 2 .6 mg/dL [facility] Laboratory - Coagulationon 0 03-18-2025 PT Coag (Bld) [Time] 15.2 s High 9.0 - 12.0 s [facility] MAGNESIUMon 03-18-2025 Magnesium [Mass/Vol] 1.9 mg/dL Normal 1.6-2.6 [facility] Comment on above: Result Comment: ORDE R COMMENTS:Higher values can be expected in females during menses. Performed By: #### L AB103, LAB17 ####Assisted Living Home Director: DOMENICA JARA ([phone])[facility])[address] [place] [address] Magnesium [Mass/Vol]on 03-18 Interpretation and review of laboratory results Normal [facility] Higher values can be expected in females during menses. [facility] No Panel Informationon 03-18 [facility] Interpretation and review of laboratory results Abnormal [facility] PROTHROMBIN TIMEon INR Coag (PPP) [Relative time] 1.5 {INR} High 0.9-1.1 [facility] Comment on above: Result Comment: Vaughn mmended [...] Myocardial Infarction Performed By: #### L AB325, [id number] ####Assisted Living Home Director: DOMENICA JARA ([id number])[facility] ([facility])[address] [place] [address] PT Coag (PPP) [Time] 15.2 s High 9.0-12.0 [facility] Comment on above: Performed By: #### L AB325, [id number] ####Assisted Living Home Director: DOMENICA JARA ([phone])[address] PT Coag (Bld) [Time]on 03-18 INR Coag (PPP) [Relative time] 1.5 {INR} High 0.9 - 1.1 [facility] Comment on above: Recommended Anticoag ulant [...] Infarction Progress Noteon 03-18-2025 Progress Note Normal [facility] Progress Note Normal [facility] Progress Note Normal [facility] aPTT Coag (Bld) [Time]on aPTT Coag (PPP) [Time] 51.8 s High 20.0 - 30.5 s [facility] Interpretation and review of laboratory results Abnormal [facility] NOTE: The therapeutic time for Heparin anticoagulation, based on Xa activity inhibition, is an APTT of 46-80 seconds. [facility] aPTT Coag (PPP) [Time] 47.6 s High 20.0 - 30.5 s [facility] Interpretation and review of laboratory results Abnormal [facility] NOTE: The therapeutic time for Heparin anticoagulation, based on Xa activity inhibition, is an APTT of 46-80 seconds. [facility] aPTT Coag (PPP) [Time] 48.8 s High 20.0 - 30.5 s [facility] NOTE: The therapeutic time for Heparin anticoagulation, based on Xa activity inhibition, is an APTT of 46-80 seconds. [facility] 30on 03-17-2025 30 Normal [facility] APTTon 03-17-2025 aPTT Coag (Bld) [Time] 44.1 s High 20.0-30.5 [facility] Comment on above: Result Comment: ARPAN Kaplan COMMENTS:NOTE: The therapeutic time for Heparin anticoagulation, based on Xa activity inhibition, is an APTT of 46-80 seconds. Performed By: #### L AB325 ####Assisted Living Home Director: DOMENICA JARA ([phone])[facility])[address] [place] [address] aPTT Coag (Bld) [Time] 29.1 s Normal 20.0-30.5 [facility] Comment on above: Result Comment: ARPAN Kaplan COMMENTS:NOTE: The therapeutic time for Heparin anticoagulation, based on Xa activity inhibition, is an APTT of 46-80 seconds. Performed By: #### L AB325 ####Assisted Living Home Director: DOMENICA JARA ([phone])[facility])[address] [place] [address] CBC (HEMOGRAM)on 03-17-2025 Erythrocyte distribution width (RBC) [Ratio] 21.2 % High 11.5-15.0 [facility] Comment on above: Performed By: #### L AB294 ####Assisted Living Home Director: DOMENICA JARA ([phone])[facility] ([facility])[address] [place] [address] Hematocrit (Bld) [Volume fraction] 33.8 % Low 40.0-52.0 [facility] Comment on above: Performed By: #### L AB294 ####Assisted Living Home Director: DOMENICA JARA ([phone])[address] Hemoglobin (Bld) [Mass/Vol] 10.0 g/dL Low 13.0-18.0 [facility] Comment on above: Performed By: #### L AB294 ####Assisted Living Home Director: DOMENICA [phone])[address] MCH (RBC) [Entitic mass] 30.2 pg Normal 26.0-34.0 [facility] Comment on above: Performed By: #### L AB294 ####Assisted Living Home Director: DOMENICA [id number])[facility] ([facility])[address] [place] [address] MCHC 29.6 % Low 30.5-36.0 [facility] Comment on above: Performed By: #### L AB294 ####Assisted Living Home Director: DOMENICA JARA ([phone])[facility] ([facility])[address] [place] [address] MCV (RBC) [Entitic vol] 102.1 fL High 77.0-99.0 [facility] Comment on above: Performed By: #### L AB294 ####Assisted Living Home Director: DOMENICA JARA ([phone])[facility] ([facility])[address] [place] [address] Platelet mean volume (Bld) [Entitic vol] 9.2 fL Normal 9.0-12.7 [facility] Comment on above: Performed By: #### L AB294 ####Assisted Living Home Director: DOMENICA JARA ([id number])[facility] ([facility])[address] [place] [address] Platelets (Bld) [#/Vol] 407 10*3/uL Normal 140-440 [facility] Comment on above: Performed By: #### L AB294 ####Assisted Living Home Director: DOMENICA JARA ([phone])[facility] ([facility])[address] [place] [address] RBC (Bld) [#/Vol] 3.31 10*6/uL Low 4.40-5.90 [facility] Comment on above: Performed By: #### L AB294 ####Assisted Living Home Director: DOMENICA JARA ([id number])[facility] ([facility])[address] [place] [address] WBC (Bld) [#/Vol] 6.7 10*3/uL Normal 3.6-10.7 [facility] Comment on above: Performed By: #### L AB294 ####Assisted Living Home Director: DOMENICA JARA ([phone])[facility] ([facility])[address] [place] [address] CBC panel Auto (Bld)Ordered By: Giancarlo Lakhani on 03-17-2025 Erythrocyte distribution width (RBC) [Ratio] 21.2 % High 11.5 - 15.0 % [facility] Hematocrit (Bld) [Volume fraction] 33.8 % Low 40.0 - 52.0 % [facility] Hemoglobin (Bld) [Mass/Vol] 10 g/dL Low 13.0 - 18.0 g/dL [facility] Interpretation and review of laboratory results Abnormal [facility] MCH (RBC) [Entitic mass] 30.2 pg 26. 0 - 34.0 pg [facility] MCHC (RBC) [Mass/Vol] 29.6 % Low 30.5 - 36.0 % [facility] MCV (RBC) [Entitic vol] 102.1 fL High 77.0 - 99.0 fL [facility] Platelet mean volume (Bld) [Entitic vol] 9.2 fL 9.0 - 12.7 fL [facility] Platelets (Bld) [#/Vol] 407 10*3/uL 140 - 440 10*3/uL [facility] RBC (Bld) [#/Vol] 3.31 10*6/uL Low 4.40 - 5.9 0 10*6/uL [facility] WBC (Bld) [#/Vol] 6.7 10*3/uL 3.6 - 10.7 10*3/uL [facility] COMPREHENSIVE METABOLIC PANE Victor M 03-17-2025 Albumin [Mass/Vol] 2.2 g/dL Low 3.5-5.0 [facility] Comment on above: Performed By: #### L AB17, [id number], [id number] ####Assisted Living Home Director: DOMENICA JARA ([phone])[facility] ([facility])[address] [place] [address] ALP [Catalytic activity/Vol] 223 U/L High 40-150 [facility] Comment on above: Performed By: #### L AB17, [id number], [id number] ####Assisted Living Home Director: DOMENICA JARA ([phone])[facility] ([facility])[address] [place] [address] ALT [Catalytic activity/Vol] 15 U/L Normal <40 [facility] Comment on above: Performed By: #### L AB17, [id number], [id number] ####Assisted Living Home Director: DOMENICA JARA ([phone])[facility])[address] [place] [address] Anion gap [Moles/Vol] 12 mmol/L Normal 3-13 [facility] Comment on above: Performed By: #### L AB17, [id number], [id number] ####Assisted Living Home Director: DOMENICA JARA ([id number])[facility] ([facility])[address] [place] [address] AST [Catalytic activity/Vol] 54 U/L High <34 [facility] Comment on above: Performed By: #### L AB17, [id number], [id number] ####Assisted Living Home Director: DOMENICA JARA ([id number])[facility] ([facility])[address] [place] [address] Bilirubin [Mass/Vol] 0.9 mg/dL Normal <1.2 [facility] Comment on above: Performed By: #### L AB17, [id number], [id number] ####Assisted Living Home Director: DOMENICA JARA ([phone])[facility] ([facility])[address] [place] [address] Calcium [Mass/Vol] 9.6 mg/dL Normal 8.4-10.2 [facility] Comment on above: Performed By: #### L AB17, [id number], [id number] ####Assisted Living Home Director: DOMENICA JARA ([phone])[facility] ([facility])[address] [place] [address] Chloride [Moles/Vol] 104 mmol/L Normal 98-107 [facility] Comment on above: Performed By: #### L AB17, [id number], [id number] ####Assisted Living Home Director: DOMENICA JARA ([phone])[facility])[address] [place] [address] CO2 [Moles/Vol] 25 mmol/L Normal 22-29 [facility] Comment on above: Performed By: #### L AB17, PYU554, SGE576 ####Assisted Living Home Director: DOMENICA JARA ([phone])[facility])[address] [place] [address] Creatinine [Mass/Vol] 3.25 mg/dL High 0.72-1.25 [facility] Comment on above: Performed By: #### L AB17, DRZ536, MDE764 ####Assisted Living Home Director: DOMENICA JAAR ([phone])[facility])[address] [place] [address] GLOMERULAR FILTRATION RATE ML/MIN/1.73 SQ M.PREDICTED 21.1 mL/min/1.73m*2 Low >60.0 [facility] Comment on above: Result Comment: Calc ulation based on the Chronic Kidney Disease Epidemiology Collaboration (CKD-EPI) equation refit without adjustment for race Performed By: #### L AB17, IMC884, MSP352 ####Assisted Living Home Director: DOMENICA JARA ([phone])[facility])[address] [place] [address] Glucose [Mass/Vol] 87 mg/dL Normal 74-100 [facility] Comment on above: Performed By: #### L AB17, MHG933, RJC776 ####Assisted Living Home Director: DOMENICA JARA ([phone])[address] Potassium [Moles/Vol] 3.9 mmol/L Normal 3.5-5.1 [facility] Comment on above: Result Comment: [facility] potassium values may be up to 0.5 mmol/L lower than serum values. Performed By: #### L AB17, [id number], [id number] ####Assisted Living Home Director: DOMENICA JARA ([phone])[facility])[address] [place] [address] Protein [Mass/Vol] 8.0 g/dL Normal 6.4-8.3 [facility] Comment on above: Performed By: #### L AB17, VLR172, [id number] ####Assisted Living Home Director: DOMENICA JARA ([id number])[address] [place] [address] [place] Sodium [Moles/Vol] 141 mmol/L Normal 136-145 [facility] Comment on above: Performed By: #### L AB17, [id number], WZD157 ####Assisted Living Home Director: DOMENICA JARA ([phone])[facility] [place] [address] Urea nitrogen [Mass/Vol] 22 mg/dL Normal 9-23 [facility] Comment on above: Performed By: #### L AB17, [id number], [id number] ####Assisted Living Home Director: DOMENICA JARA ([phone])[facility] [place] [address] Comprehensive metabolic 1998 panelon 03-17-2025 Albumin [Mass/Vol] 2.2 g/dL Low 3.5 - 5.0 g/dL [facility] ALP [Catalytic activity/Vol] 223 U/L High 40 - 150 U/L [facility] ALT [Catalytic activity/Vol] 15 U/L NINF - 40 U/L [facility] Anion gap [Moles/Vol] 12 mmol/L 3 - 13 mmol/L [facility] AST [Catalytic activity/Vol] 54 U/L High NINF - 34 U/L [facility] Bilirubin [Mass/Vol] 0.9 mg/[facility] mg/dL [facility] Calcium [Mass/Vol] 9.6 mg/dL 8.4 - 10. 2 mg/dL [facility] Chloride [Moles/Vol] 104 mmol/L 98 - 10 7 mmol/L [facility] CO2 [Moles/Vol] 25 mmol/L 22 - 29 mmol/L [facility] Creatinine [Mass/Vol] 3.25 mg/dL High 0.72 - 1.25 mg/dL [facility] GFR/1.73 sq M.predicted (S/P/Bld) [Vol rate/Area] 21.1 mL/min Low - PINF [facility] Comment on above: Calculation based on the Chronic Kidney Disease Epidemiology Collaboration (CKD-EPI) equation refit without adjustment for race Glucose [Mass/Vol] 87 mg/dL 74 - 100 mg/dL [facility] Interpretation and review of laboratory results Abnormal [facility] Potassium [Moles/Vol] 3.9 mmol/L 3.5 - 5.1 mmol/L [facility] Comment on above: Plasma potassium macey ues may be up to 0.5 mmol/L lower than serum values. Protein [Mass/Vol] 8 g/dL 6.4 - 8.3 g/dL [facility] Sodium [Moles/Vol] 141 mmol/L 136 - 145 mmol/L [facility] Urea nitrogen [Mass/Vol] 22 mg/dL 9 - 23 mg/d L [facility] Laboratory - Chemistry and C hemistry - challengeon 03-17-2025 Magnesium [Mass/Vol] 2.2 mg/dL 1.6 - 2 .6 mg/dL [facility] Laboratory - Coagulationon 0 03-17-2025 PT Coag (Bld) [Time] 16 s High 9.0 - 12.0 s [facility] MAGNESIUMon 03-17-2025 Magnesium [Mass/Vol] 2.2 mg/dL Normal 1.6-2.6 [facility] [employer] [facility] Comment on above: Result Comment: ARPAN Kaplan COMMENTS:Higher values can be expected in females during menses. Performed By: #### L AB17, [id number], [id number] ####Assisted Living Home Director: DOMENICA JARA ([phone])[facility])[address] [place] [address] Magnesium [Mass/Vol]on 03-17 Interpretation and review of laboratory results Normal [facility] Higher values can be expected in females during menses. [facility] NT PRO BNPon 03-17-2025 NT PRO BNP >09126 High <125 [facility] Comment on above: Performed By: #### L AB17, [id number], APV559 ####Assisted Living Home Director: DOMENICA JARA ([phone])[facility] ([facility])[address] [place] [address] [place] Natriuretic peptide B [Mass/ Vol]on 03-17-2025 Interpretation and review of laboratory results Abnormal [facility] Natriuretic peptide B (Bld) [Mass/Vol] pg/mL High NINF - 125 pg/mL [facility] No Panel Informationon 03-17 [facility] Nursing Noteon 03-17-2025 Nursing Note Normal [facility] PROTHROMBIN TIMEon INR Coag (PPP) [Relative time] 1.5 {INR} High 0.9-1.1 [facility] Comment on above: Result Comment: Vaughn mmended [...] Myocardial Infarction Performed By: #### L AB320 ####Assisted Living Home Director: DOMENICA JARA ([phone])[facility] ([facility])[address] [place] [address] PT Coag (PPP) [Time] 16.0 s High 9.0-12.0 [facility] Comment on above: Performed By: #### Tameka AB320 ####Assisted Living Home Director: DOMENICA JARA ([phone])[facility] ([facility])[address] [place] [address] PT Coag (Bld) [Time]on 03-17 INR Coag (PPP) [Relative time] 1.5 {INR} High 0.9 - 1.1 [facility] Comment on above: Recommended Anticoag ulant [...] Interpretation and review of laboratory results Abnormal [facility] Progress Noteon 03-17-2025 Progress [facility] Normal [facility] Progress Note Normal [facility] aPTT Coag (Bld) [Time]on aPTT Coag (PPP) [Time] 44.1 s High 20.0 - 30.5 s [facility] Interpretation and review of laboratory results Abnormal [facility] NOTE: The therapeutic time for Heparin anticoagulation, based on Xa activity inhibition, is an APTT of 46-80 seconds. [facility] aPTT Coag (PPP) [Time] 29.1 s 20.0 - 30.5 s [facility] Interpretation and review of laboratory results Normal [facility] NOTE: The therapeutic time for Heparin anticoagulation, based on Xa activity inhibition, is an APTT of 46-80 seconds. [facility] 30on 03-16-2025 30 Normal [facility] 30 Normal [facility] CBC (HEMOGRAM)on 03-16-2025 Erythrocyte distribution width (RBC) [Ratio] 21.2 % High 11.5-15.0 [facility] Comment on above: Performed By: #### L AB294 ####Assisted Living Home Director: DOMENICA JARA ([phone])[facility])[address] [place] [address] Hematocrit (Bld) [Volume fraction] 30.2 % Low 40.0-52.0 [facility] Comment on above: Performed By: #### L AB294 ####Assisted Living Home Director: DOMENICA JARA ([phone])[facility])[address] [place] [address] Hemoglobin (Bld) [Mass/Vol] 9.1 g/dL Low 13.0-18.0 [facility] Comment on above: Performed By: #### L [id number] ####Assisted Living Home Director: DOMENICA JARA ([phone])[facility])[address] [place] [address] MCH (RBC) [Entitic mass] 30.1 pg Normal 26.0-34.0 [facility] Comment on above: Performed By: #### L AB294 ####Assisted Living Home Director: DOMENICA JARA ([phone])[facility])[address] [place] [address] MCHC 30.1 % Low 30.5-36.0 [facility] Comment on above: Performed By: #### L AB294 ####Assisted Living Home Director: DOMENICA JARA ([id number])[facility] ([facility])[address] [place] [address] MCV (RBC) [Entitic vol] 100.0 fL High 77.0-99.0 S [facility] Comment on above: Performed By: #### L AB294 ####Assisted Living Home Director: DOMENICA JARA ([phone])[facility] ([facility])[address] [place] [address] Platelet mean volume (Bld) [Entitic vol] 9.0 fL Normal 9.0-12.7 [facility] Comment on above: Performed By: #### L AB294 ####Assisted Living Home Director: DOMENICA JARA ([id number])[facility] ([facility])[address] [place] [address] Platelets (Bld) [#/Vol] 372 10*3/uL Normal 140-440 [facility] Comment on above: Performed By: #### L AB294 ####Assisted Living Home Director: DOMENICA JARA ([phone])[facility] ([facility])[address] [place] [address] RBC (Bld) [#/Vol] 3.02 10*6/uL Low 4.40-5.90 [facility] Comment on above: Performed By: #### L AB294 ####Assisted Living Home Director: DOMENICA JARA ([id number])[facility] ([facility])[address] [place] [address] WBC (Bld) [#/Vol] 7.0 10*3/uL Normal 3.6-10.7 [facility] Comment on above: Performed By: #### L AB294 ####Assisted Living Home Director: DOMENICA JARA ([phone])[facility])[address] [place] [address] CBC panel Auto (Bld)Ordered By: Callie Steele on 03-16-2025 Erythrocyte distribution width (RBC) [Ratio] 21.2 % High 11.5 - 15.0 % [facility] Hematocrit (Bld) [Volume fraction] 30.2 % Low 40.0 - 52.0 % [facility] Hemoglobin (Bld) [Mass/Vol] 9.1 g/dL Low 13.0 - 18.0 g/dL [facility] Interpretation and review of laboratory results Abnormal [facility] MCH (RBC) [Entitic mass] 30.1 pg 26. 0 - 34.0 pg [facility] MCHC (RBC) [Mass/Vol] 30.1 % Low 30.5 - 36.0 % [facility] MCV (RBC) [Entitic vol] 100 fL High 77.0 - 99.0 fL [facility] Platelet mean volume (Bld) [Entitic vol] 9 fL 9.0 - 12.7 fL [facility] Platelets (Bld) [#/Vol] 372 10*3/uL 140 - 440 10*3/uL [facility] RBC (Bld) [#/Vol] 3.02 10*6/uL Low 4.40 - 5.9 0 10*6/uL [facility] WBC (Bld) [#/Vol] 7 10*3/uL 3.6 - 10.7 10*3/uL [facility] COMPREHENSIVE METABOLIC PANE Victor M 03-16-2025 Albumin [Mass/Vol] 2.0 g/dL Low 3.5-5.0 [facility] Comment on above: Performed By: #### L AB17, [id number] ####Assisted Living Home Director: DOMENICA JARA ([id number])[address] ALP [Catalytic activity/Vol] 194 U/L High 40-150 [facility] Comment on above: Performed By: #### L AB17, [id number] ####Assisted Living Home Director: DOMENICA JARA ([id number])[facility] ([facility])[address] [place] [address] ALT [Catalytic activity/Vol] 13 U/L Normal <40 [facility] Comment on above: Performed By: #### L AB17, [id number] ####Assisted Living Home Director: DOMENICA JARA ([phone])[facility])[address] [place] [address] Anion gap [Moles/Vol] 9 mmol/L Normal 3-13 [facility] Comment on above: Performed By: #### L AB17, [id number] ####Assisted Living Home Director: DOMENICA JARA ([phone])[facility] ([facility])[address] [place] [address] AST [Catalytic activity/Vol] 47 U/L High <34 [facility] Comment on above: Performed By: #### L AB17, [id number] ####Assisted Living Home Director: DOMENICA JARA ([id number])[facility] ([facility])[address] [place] [address] Bilirubin [Mass/Vol] 0.9 mg/dL Normal <1.2 [facility] Comment on above: Performed By: #### L AB17, [id number] ####Assisted Living Home Director: DOMENICA JARA ([phone])[facility] ([facility])[address] [place] [address] Calcium [Mass/Vol] 9.1 mg/dL Normal 8.4-10.2 [facility] Comment on above: Performed By: #### L AB17, [id number] ####Assisted Living Home Director: DOMENICA JARA ([id number])[facility] ([facility])[address] [place] [address] Chloride [Moles/Vol] 104 mmol/L Normal 98-107 [facility] Comment on above: Performed By: #### L AB17, [id number] ####Assisted Living Home Director: DOMENICA JARA ([phone])[facility] ([facility])[address] [place] [address] CO2 [Moles/Vol] 26 mmol/L Normal 22-29 [facility] Comment on above: Performed By: #### L AB17, [id number] ####Assisted Living Home Director: DOMENICA JARA ([id number])[facility])[address] [place] [address] Creatinine [Mass/Vol] 2.35 mg/dL High 0.72-1.25 [facility] Comment on above: Performed By: #### L AB17, [id number] ####Assisted Living Home Director: DOMENICA JARA ([phone])[facility])[address] [place] [address] [place] GLOMERULAR FILTRATION RATE ML/MIN/1.73 SQ M.PREDICTED 31.1 mL/min/1.73m*2 Low >60.0 [facility] Comment on above: Result Comment: Calc ulation based on the Chronic Kidney Disease Epidemiology Collaboration (CKD-EPI) equation refit without adjustment for race Performed By: #### L 17, [id number] ####Assisted Living Home Director: DOMENICA JARA ([id number])[facility])[address] [place] [address] Glucose [Mass/Vol] 83 mg/dL Normal 74-100 [facility] Comment on above: Performed By: #### Tameka ISAAC17, [id number] ####Assisted Living Home Director: DOMENICA JARA ([phone])[facility])[address] [place] [address] [place] Potassium [Moles/Vol] 4.1 mmol/L Normal 3.5-5.1 [facility] Comment on above: Result Comment: [facility] potassium values may be up to 0.5 mmol/L lower than serum values. Performed By: #### L 17, [id number] ####Assisted Living Home Director: DOMENICA JARA ([phone])[facility])[address] [place] [address] [place] Protein [Mass/Vol] 7.3 g/dL Normal 6.4-8.3 [facility] Comment on above: Performed By: #### L AB17, [id number] ####Assisted Living Home Director: DOMENICA JARA ([id number])[facility])[address] [place] [address] [place] Sodium [Moles/Vol] 139 mmol/L Normal 136-145 [facility] Comment on above: Performed By: #### L AB17, [id number] ####Assisted Living Home Director: DOMENICA JARA ([id number])[facility])[address] [place] [address] [place] Urea nitrogen [Mass/Vol] 18 mg/dL Normal 9-23 [facility] Comment on above: Performed By: #### L AB17, [id number] ####Assisted Living Home Director: DOMENICA JARA ([id number])[facility] ([facility] Comprehensive metabolic 1998 panelon 03-16-2025 Albumin [Mass/Vol] 2 g/dL Low 3.5 - 5.0 g/dL [facility] ALP [Catalytic activity/Vol] 194 U/L High 40 - 150 U/L [facility] ALT [Catalytic activity/Vol] 13 U/L NINF - 40 U/L [facility] Anion gap [Moles/Vol] 9 mmol/L 3 - 13 mmol/L [facility] AST [Catalytic activity/Vol] 47 U/L High NINF - 34 U/L [facility] Bilirubin [Mass/Vol] 0.9 mg/dL NINF - 1.2 mg/dL [facility] Calcium [Mass/Vol] 9.1 mg/dL 8.4 - 10. 2 mg/dL [facility] Chloride [Moles/Vol] 104 mmol/L 98 - 10 7 mmol/L [facility] CO2 [Moles/Vol] 26 mmol/L 22 - 29 mmol/L [facility] Creatinine [Mass/Vol] 2.35 mg/dL High 0.72 - 1.25 mg/dL [facility] GFR/1.73 sq M.predicted (S/P/Bld) [Vol rate/Area] 31.1 mL/min Low - PINF [facility] Comment on above: Calculation based on the Chronic Kidney Disease Epidemiology Collaboration (CKD-EPI) equation refit without adjustment for race Glucose [Mass/Vol] 83 mg/dL 74 - 100 mg/dL [facility] Interpretation and review of laboratory results Abnormal [facility] Potassium [Moles/Vol] 4.1 mmol/L 3.5 - 5.1 mmol/L [facility] Comment on above: Plasma potassium macey ues may be up to 0.5 mmol/L lower than serum values. Protein [Mass/Vol] 7.3 g/dL 6.4 - 8.3 g/dL [facility] Sodium [Moles/Vol] 139 mmol/L 136 - 145 mmol/L [facility] Urea nitrogen [Mass/Vol] 18 mg/dL 9 - 23 mg/d L [facility] Laboratory - Chemistry and C hemistry - challengeon 03-16-2025 Magnesium [Mass/Vol] 2 mg/dL 1.6 - 2 .6 mg/dL [facility] Laboratory - Coagulationon 0 03-16-2025 PT Coag (Bld) [Time] 17.3 s High 9.0 - 12.0 s [facility] MAGNESIUMon 03-16-2025 Magnesium [Mass/Vol] 2.0 mg/dL Normal 1.6-2.6 [facility] Comment on above: Result Comment: ARPAN Kaplan COMMENTS:Higher values can be expected in females during menses. Performed By: #### L AB17, [id number] ####Assisted Living Home Director: DOMENICA JARA ([id number])[address] Magnesium [Mass/Vol]on 03-16 Interpretation and review of laboratory results Normal [facility] Higher values can be expected in females during menses. [facility] No Panel Informationon 03-16 [facility] PROTHROMBIN TIMEon INR Coag (PPP) [Relative time] 1.7 {INR} High 0.9-1.1 [facility] Comment on above: Result Comment: Vaughn mmended [...] Myocardial Infarction Performed By: #### L AB320 ####Assisted Living Home Director: DOMENICA JARA ([id number])[address] PT Coag (PPP) [Time] 17.3 s High 9.0-12.0 [facility] [employer] [facility] Comment on above: Performed By: #### L AB320 ####Assisted Living Home Director: DOMENICA [id number])[facility] ([facility])[address] [place] [address] PT Coag (Bld) [Time]on 03-16 INR Coag (PPP) [Relative time] 1.7 {INR} High 0.9 - 1.1 [facility] Comment on above: Recommended Anticoag ulant [...] Interpretation and review of laboratory results Abnormal [facility] Progress Noteon 03-16-2025 [facility] Progress [facility] Progress [facility] Normal [facility] Progress Note Normal [facility] Progress Note Normal [facility] 30on 03-15-2025 30 Normal [facility] 30 Normal [facility] [id number] 03-15-2025 [id number] Normal [facility] CBC (HEMOGRAM)on 03-15-2025 Erythrocyte distribution width (RBC) [Ratio] 21.3 % High 11.5-15.0 [facility] Comment on above: Performed By: #### L AB294 ####Assisted Living Home Director: DOMENICA JARA ([id number])[facility] ([facility])[address] [place] [address] Hematocrit (Bld) [Volume fraction] 30.1 % Low 40.0-52.0 [facility] Comment on above: Performed By: #### L AB294 ####Assisted Living Home Director: DOMENICA JARA ([id number])[address] Hemoglobin (Bld) [Mass/Vol] 9.2 g/dL Low 13.0-18.0 [facility] Comment on above: Performed By: #### L AB294 ####Assisted Living Home Director: DOMENICA JARA ([id number])[facility] ([facility])[address] [place] [address] MCH (RBC) [Entitic mass] 30.5 pg Normal 26.0-34.0 [facility] Comment on above: Performed By: #### L AB294 ####Assisted Living Home Director: DOMENICA JARA ([phone])[facility] ([facility])[address] [place] [address] MCHC 30.6 % Normal 30.5-36.0 [facility] Comment on above: Performed By: #### L AB294 ####Assisted Living Home Director: DOMENICA AJRA ([id number])[facility] ([facility])[address] [place] [address] MCV (RBC) [Entitic vol] 99.7 fL High 77.0-99.0 S [facility] Comment on above: Performed By: #### L AB294 ####Assisted Living Home Director: DOMENICA JARA ([id number])[facility] ([facility])[address] [place] [address] Platelet mean volume (Bld) [Entitic vol] 9.0 fL Normal 9.0-12.7 [facility] Comment on above: Performed By: #### L AB294 ####Assisted Living Home Director: DOMENICA JARA ([id number])[facility] ([facility])[address] [place] [address] Platelets (Bld) [#/Vol] 392 10*3/uL Normal 140-440 [facility] Comment on above: Performed By: #### L AB294 ####Assisted Living Home Director: DOMENICA JARA ([id number])[facility] ([facility])[address] [place] [address] RBC (Bld) [#/Vol] 3.02 10*6/uL Low 4.40-5.90 [facility] Comment on above: Performed By: #### L AB294 ####Assisted Living Home Director: DOMENICA JARA ([id number])[facility] ([facility])[address] [place] [address] WBC (Bld) [#/Vol] 6.7 10*3/uL Normal 3.6-10.7 [facility] Comment on above: Performed By: #### L AB294 ####Assisted Living Home Director: DOMENICA JARA ([id number])[facility] ([facility])[address] [place] [address] CBC panel Auto (Bld)on 03-15 Erythrocyte distribution width (RBC) [Ratio] 21.3 % High 11.5 - 15.0 % [facility] Hematocrit (Bld) [Volume fraction] 30.1 % Low 40.0 - 52.0 % [facility] Hemoglobin (Bld) [Mass/Vol] 9.2 g/dL Low 13.0 - 18.0 g/dL [facility] Interpretation and review of laboratory results Abnormal [facility] MCH (RBC) [Entitic mass] 30.5 pg 26. 0 - 34.0 pg [facility] MCHC (RBC) [Mass/Vol] 30.6 % 30.5 - 36.0 % [facility] MCV (RBC) [Entitic vol] 99.7 fL High 77.0 - 99.0 fL [facility] Platelet mean volume (Bld) [Entitic vol] 9 fL 9.0 - 12.7 fL [facility] Platelets (Bld) [#/Vol] 392 10*3/uL 140 - 440 10*3/uL [facility] RBC (Bld) [#/Vol] 3.02 10*6/uL Low 4.40 - 5.9 0 10*6/uL [facility] WBC (Bld) [#/Vol] 6.7 10*3/uL 3.6 - 10.7 10*3/uL [facility] COMPREHENSIVE METABOLIC PANE Victor M 03-15-2025 Albumin [Mass/Vol] 2.0 g/dL Low 3.5-5.0 [facility] Comment on above: Performed By: #### L AB103, LAB17 ####Assisted Living Home Director: DOMENICA JARA ([id number])[facility] ([facility])[address] [place] [address] ALP [Catalytic activity/Vol] 201 U/L High 40-150 [facility] Comment on above: Performed By: #### L AB103, LAB17 ####Assisted Living Home Director: DOMENICA JARA ([id number])[facility] ([facility])[address] [place] [address] ALT [Catalytic activity/Vol] 14 U/L Normal <40 [facility] Comment on above: Performed By: #### L AB103, LAB17 ####Assisted Living Home Director: DOMENICA JARA ([phone])[facility] ([facility])[address] [place] [address] Anion gap [Moles/Vol] 11 mmol/L Normal 3-13 [facility] Comment on above: Performed By: #### L AB103, LAB17 ####Assisted Living Home Director: DOMENICA JARA ([id number])[facility] ([facility])[address] [place] [address] AST [Catalytic activity/Vol] 49 U/L High <34 [facility] Comment on above: Performed By: #### L AB103, LAB17 ####Assisted Living Home Director: DOMENICA JARA ([phone])[facility] ([facility])[address] [place] [address] Bilirubin [Mass/Vol] 0.8 mg/dL Normal <1.2 [facility] Comment on above: Performed By: #### L AB103, LAB17 ####Assisted Living Home Director: DOMENICA JARA ([id number])[facility] ([facility])[address] [place] [address] Calcium [Mass/Vol] 9.2 mg/dL Normal 8.4-10.2 [facility] Comment on above: Performed By: #### L AB103, LAB17 ####Assisted Living Home Director: DOMENICA JARA ([phone])[facility])[address] [place] [address] [place] Chloride [Moles/Vol] 100 mmol/L Normal 98-107 [facility] Comment on above: Performed By: #### L AB103, LAB17 ####Assisted Living Home Director: DOMENICA JARA ([phone])[facility] ([facility])[address] [place] [address] CO2 [Moles/Vol] 28 mmol/L Normal 22-29 [facility] Comment on above: Performed By: #### L AB103, LAB17 ####Assisted Living Home Director: DOMENICA JARA ([id number])[facility] ([facility])[address] [place] [address] Creatinine [Mass/Vol] 3.13 mg/dL High 0.72-1.25 [facility] Comment on above: Performed By: #### L AB103, LAB17 ####Assisted Living Home Director: DOMENICA JARA ([phone])[facility] ([facility])[address] [place] [address] GLOMERULAR FILTRATION RATE ML/MIN/1.73 SQ M.PREDICTED 22.0 mL/min/1.73m*2 Low >60.0 [facility] Comment on above: Result Comment: Calc ulation based on the Chronic Kidney Disease Epidemiology Collaboration (CKD-EPI) equation refit without adjustment for race Performed By: #### L AB103, LAB17 ####Assisted Living Home Director: DOMENICA JARA ([id number])[facility] ([facility])[address] [place] [address] Glucose [Mass/Vol] 91 mg/dL Normal 74-100 [facility] Comment on above: Performed By: #### L 103, LAB17 ####Assisted Living Home Director: DOMENICA JARA ([phone])[facility])[address] [place] [address] [place] Potassium [Moles/Vol] 4.5 mmol/L Normal 3.5-5.1 [facility] Comment on above: Result Comment: [facility] potassium values may be up to 0.5 mmol/L lower than serum values. Performed By: #### L AB103, LAB17 ####Assisted Living Home Director: DOMENICA AJRA ([phone])[facility])[address] [place] [address] Protein [Mass/Vol] 7.6 g/dL Normal 6.4-8.3 [facility] Comment on above: Performed By: #### L AB103, LAB17 ####Assisted Living Home Director: DOMENICA JARA ([id number])[facility] ([facility])[address] [place] [address] Sodium [Moles/Vol] 139 mmol/L Normal 136-145 [facility] Comment on above: Performed By: #### L AB103, LAB17 ####Assisted Living Home Director: DOMENICA JARA ([id number])[facility] ([facility])[address] [place] [address] Urea nitrogen [Mass/Vol] 30 mg/dL High 9-23 [facility] Comment on above: Performed By: #### L AB103, LAB17 ####Assisted Living Home Director: DOMENICA JARA ([id number])[facility] ([facility])[address] [place] [address] Comprehensive metabolic 1998 panelOrdered By: Jenni Romano on 03-15-2025 Albumin [Mass/Vol] 2 g/dL Low 3.5 - 5.0 g/dL [facility] ALP [Catalytic activity/Vol] 201 U/L High 40 - 150 U/L [facility] ALT [Catalytic activity/Vol] 14 U/L NINF - 40 U/L [facility] Anion gap [Moles/Vol] 11 mmol/L 3 - 13 mmol/L [facility] AST [Catalytic activity/Vol] 49 U/L High NINF - 34 U/L [facility] Bilirubin [Mass/Vol] 0.8 mg/dL NINF - 1.2 mg/dL [facility] Calcium [Mass/Vol] 9.2 mg/dL 8.4 - 10. 2 mg/dL [facility] Chloride [Moles/Vol] 100 mmol/L 98 - 10 7 mmol/L [facility] CO2 [Moles/Vol] 28 mmol/L 22 - 29 mmol/L [facility] Creatinine [Mass/Vol] 3.13 mg/dL High 0.72 - 1.25 mg/dL [facility] GFR/1.73 sq M.predicted (S/P/Bld) [Vol rate/Area] 22 mL/min Low - PINF [facility] Comment on above: Calculation based on the Chronic Kidney Disease Epidemiology Collaboration (CKD-EPI) equation refit without adjustment for race Glucose [Mass/Vol] 91 mg/dL 74 - 100 mg/dL [facility] Interpretation and review of laboratory results Abnormal [facility] Potassium [Moles/Vol] 4.5 mmol/L 3.5 - 5.1 mmol/L [facility] Comment on above: Plasma potassium macey ues may be up to 0.5 mmol/L lower than serum values. Protein [Mass/Vol] 7.6 g/dL 6.4 - 8.3 g/dL [facility] Sodium [Moles/Vol] 139 mmol/L 136 - 145 mmol/L [facility] Urea nitrogen [Mass/Vol] 30 mg/dL High 9 - 23 mg/d L [facility] Consulton 03-15-2025 Consult Normal [facility] Consult Normal [facility] FREE T4on 03-15-2025 Free T4 [Mass/Vol] 0.89 ng/dL Normal 0.70-1.48 [facility] Comment on above: Performed By: #### L AB127 ####Assisted Living Home Director: DOMENICA JARA ([id number])[facility] [place] [address] Free T4 [Mass/Vol]on 025 Free T4 Dialysis [Mass/Vol] 0.89 ng/dL 0.70 - 1.48 ng/dL [facility] Interpretation and review of laboratory results Normal [facility] Laboratory - Chemistry and C hemistry - challengeon 03-15-2025 Magnesium [Mass/Vol] 2 mg/dL 1.6 - 2 .6 mg/dL [facility] Laboratory - Coagulationon 0 03-15-2025 PT Coag (Bld) [Time] 17.9 s High 9.0 - 12.0 s [facility] MAGNESIUMon 03-15-2025 Magnesium [Mass/Vol] 2.0 mg/dL Normal 1.6-2.6 [facility] Comment on above: Result Comment: ARPAN Kaplan COMMENTS:Higher values can be expected in females during menses. Performed By: #### L AB103, LAB17 ####Assisted Living Home Director: DOMENICA JARA ([phone])[facility] ([facility])[address] [place] [address] Magnesium [Mass/Vol]on 03-15 Interpretation and review of laboratory results Normal [facility] Higher values can be expected in females during menses. [facility] Nursing Noteon 03-15-2025 Nursing Note Normal [facility] Nursing Note Normal [facility] PROTHROMBIN TIMEon INR Coag (PPP) [Relative time] 1.7 {INR} High 0.9-1.1 [facility] Comment on above: Result Comment: Vaughn mmended [...] Myocardial Infarction Performed By: #### Tameka AB320 ####Assisted Living Home Director: DOMENICA JARA ([phone])[facility])[address] [place] [address] PT Coag (PPP) [Time] 17.9 s High 9.0-12.0 [facility] Comment on above: Performed By: #### Tameka AB320 ####Assisted Living Home Director: DMOENICA JARA ([phone])[address] PT Coag (Bld) [Time]on 03-15 INR Coag (PPP) [Relative time] 1.7 {INR} High 0.9 - 1.1 [facility] Comment on above: Recommended Anticoag ulant [...] Interpretation and review of laboratory results Abnormal [facility] Progress Noteon 03-15-2025 Progress Note Normal [facility] Progress Note Normal [facility] Progress [facility] Prothrombin Time w/INRon INR Normal [facility] Comment on above: Order Comment: 412.2 Result Comment: [facility] Performed By: #### L 100.0100, L500.4050, L300.3900 #### [facility] [address] [place], [address] PROTIME Normal 11.7-14.9 [facility] Comment on above: Order Comment: 412.2 Result Comment: [facility] Performed By: #### L 100.0100, L500.4050, L300.3900 #### [facility] [address] [place], [address] [place] Lower extremity arteryOrd ered By: Sulaiman Mullen on 03-15-2025 Right arm BP 130 mmHg [facility] [employer] Work Phone: [place] Lower extremity arteryon 03-15-2025 [...] feet. CV CPACS 30on 03-14-2025 30 Normal [facility] [id number] 03-14-2025 [id number] Normal [facility] BASIC METABOLIC PANELon 02-25 Anion gap [Moles/Vol] 11 mmol/L Normal 3-13 [facility] Comment on above: Performed By: #### L AB15, [id number], LAB18 ####Assisted Living Home Director: DOMENICA JARA ([phone])[facility] ([facility])[address] [place] [address] Calcium [Mass/Vol] 10.1 mg/dL Normal 8.4-10.2 [facility] Comment on above: Performed By: #### L AB15, [id number], LAB18 ####Assisted Living Home Director: DOMENICA JARA ([id number])[facility] ([facility])[address] [place] [address] Chloride [Moles/Vol] 102 mmol/L Normal 98-107 [facility] Comment on above: Performed By: #### L AB15, [id number], LAB18 ####Assisted Living Home Director: DOMENICA JARA ([id number])[facility] ([facility])[address] [place] [address] CO2 [Moles/Vol] 28 mmol/L Normal 22-29 [facility] Comment on above: Performed By: #### L AB15, [id number], LAB18 ####Assisted Living Home Director: DOMENICA JARA ([phone])[facility] ([facility])[address] [place] [address] Creatinine [Mass/Vol] 4.96 mg/dL High 0.72-1.25 [facility] Comment on above: Performed By: #### L AB15, [id number], LAB18 ####Assisted Living Home Director: DOMENICA JARA ([id number])[facility])[address] [place] [address] GLOMERULAR FILTRATION RATE ML/MIN/1.73 SQ M.PREDICTED 12.7 mL/min/1.73m*2 Low >60.0 [facility] Comment on above: Result Comment: Calc ulation based on the Chronic Kidney Disease Epidemiology Collaboration (CKD-EPI) equation refit without adjustment for race Performed By: #### L AB15, [id number], LAB18 ####Assisted Living Home Director: DOMENICA JARA ([id number])[facility])[address] [place] [address] Glucose [Mass/Vol] 99 mg/dL Normal 74-100 [facility] Comment on above: Performed By: #### Tameka AB15, [id number], LAB18 ####Assisted Living Home Director: DOMENICA JARA ([id number])[address] Potassium [Moles/Vol] 5.2 mmol/L High 3.5-5.1 [facility] Comment on above: Result Comment: [facility] potassium values may be up to 0.5 mmol/L lower than serum values. Performed By: #### Tameka AB15, [id number], LAB18 ####Assisted Living Home Director: DOMENICA JARA ([phone])[address] Sodium [Moles/Vol] 141 mmol/L Normal 136-145 [facility] Comment on above: Performed By: #### Tameka AB15, [id number], LAB18 ####Assisted Living Home Director: DOMENICA JARA ([id number])[place] [address] [place] Urea nitrogen [Mass/Vol] 57 mg/dL High 9-23 [facility] Comment on above: Performed By: #### L AB15, [id number], LAB18 ####Assisted Living Home Director: DOMENICA JARA ([phone])[facility])[address] [place] [address] Basic metabolic 1998 panelOr dered By: Brandy Ross on 03-14-2025 Anion gap [Moles/Vol] 11 mmol/L 3 - 13 mmol/L [facility] Calcium [Mass/Vol] 10.1 mg/dL 8.4 - 10. 2 mg/dL [facility] Chloride [Moles/Vol] 102 mmol/L 98 - 10 7 mmol/L [facility] CO2 [Moles/Vol] 28 mmol/L 22 - 29 mmol/L [facility] Creatinine [Mass/Vol] 4.96 mg/dL High 0.72 - 1.25 mg/dL [facility] GFR/1.73 sq M.predicted (S/P/Bld) [Vol rate/Area] 12.7 mL/min Low - PINF [facility] Comment on above: Calculation based on the Chronic Kidney Disease Epidemiology Collaboration (CKD-EPI) equation refit without adjustment for race Glucose [Mass/Vol] 99 mg/dL 74 - 100 mg/dL [facility] Interpretation and review of laboratory results Abnormal [facility] Potassium [Moles/Vol] 5.2 mmol/L High 3.5 - 5.1 mmol/L [facility] Comment on above: Plasma potassium macey ues may be up to 0.5 mmol/L lower than serum values. Sodium [Moles/Vol] 141 mmol/L 136 - 145 mmol/L [facility] Urea nitrogen [Mass/Vol] 57 mg/dL High 9 - 23 mg/d L [facility] Consulton 03-14-2025 Consult Normal [facility] Consult Normal [facility] Consult Normal [facility] Consult Normal [facility] ECG 12-LEADon 03-14-2025 ECG 12-LEAD IMPRESSION: Atrial flutter IVCD, consider RBBB Probable lateral infarct, age indeterminate Anteroseptal infarct, 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 Electronically Signed On 03-14-2025 15:38:49 EDT by Ryan Magdaleno Normal [facility] LIPID PANELon 03-14-2025 Cholesterol [Mass/Vol] 159 mg/dL Normal <200 [facility] Comment on above: Performed By: #### L AB15, [id number], LAB18 ####Assisted Living Home Director: DOMENICA JARA ([id number])[facility] ([address] Cholesterol in HDL [Mass/Vol] 30 mg/dL Low >=60 [facility] Comment on above: Performed By: #### L AB15, [id number], LAB18 ####Assisted Living Home Director: DOMENICA JARA ([phone])[facility])[address] [place] [address] Cholesterol.total/Choles terol in HDL [Mass ratio] 5 {ratio} Normal [facility] Comment on above: Result Comment: Ref Range:< 3 Low Risk for CHD3-6 Mod Risk for CHD> 6 High Risk for CHD Performed By: #### L AB15, [id number], LAB18 ####Assisted Living Home Director: DOMENICA JARA ([id number])[facility] ([facility])[address] [place] [address] LOW DENSITY LIPOPROTEIN 109 mg/dL High 0-<100 [facility] Comment on above: Performed By: #### Tameka AB15, [id number], LAB18 ####Assisted Living Home Director: DOMENICA JARA ([id number])[facility] ([facility])[address] [place] [address] NON-HDL CHOLESTEROL, CALCULATED 129 Normal <130 [facility] Comment on above: Performed By: #### Tameka AB15, [id number], LAB18 ####Assisted Living Home Director: DOMENICA JARA ([id number])[facility] ([facility])[address] [place] [address] Triglyceride [Mass/Vol] 98 mg/dL Normal <150 [facility] Comment on above: Performed By: #### Tameka AB15, [id number], LAB18 ####Assisted Living Home Director: DOMENICA JARA ([phone])[facility] ([facility])[address] [place] [address] VERY LOW DENSITY LIPOPROTEIN, CALCULATED 20 mg/dL Normal <=30 [facility] Comment on above: Performed By: #### L AB15, [id number], LAB18 ####Assisted Living Home Director: DOMENICA JARA ([phone])[facility] ([facility])[address] [place] [address] Laboratory - Chemistry and C hemistry - challengeon 03-14-2025 Magnesium [Mass/Vol] 2.2 mg/dL 1.6 - 2 .6 mg/dL [facility] [employer] Lipid 1996 panelon 5 Cholesterol [Mass/Vol] 159 mg/dL NINF - 200 mg/dL [facility] [employer] Cholesterol in HDL [Mass/Vol] 30 mg/dL Low 60 - PINF mg/dL [facility] [employer] Cholesterol in LDL [Mass/Vol] 109 mg/dL High 0 - <100 [facility] [employer] Cholesterol.total/Choles terol in HDL [Mass ratio] 5 {ratio} [facility] [employer] Comment on above: Ref Range: < 3 Low Risk for CHD 3-6 Mod Risk for CHD > 6 High Risk for CHD Interpretation and review of laboratory results Abnormal [facility] [employer] NON-HDL CHOLESTEROL, CALCULATED 129 NINF - 130 [facility] [employer] Triglyceride [Mass/Vol] 98 mg/dL NINF - 150 mg/dL [facility] [employer] VERY LOW DENSITY LIPOPROTEIN, CALCULATED 20 mg/dL NINF - 30 mg/dL [facility] [employer] MAGNESIUMon 03-14-2025 Magnesium [Mass/Vol] 2.2 mg/dL Normal 1.6-2.6 [facility] [employer] [facility] Comment on above: Result Comment: ARPAN Kaplan COMMENTS:Higher values can be expected in females during menses. Performed By: #### L AB15, [id number], LAB18 ####Assisted Living Home Director: DOMENICA JARA ([id number])[address] Magnesium [Mass/Vol]on 03-14 Interpretation and review of laboratory results Normal [facility] [employer] Higher values can be expected in females during menses. [facility] [employer] No Panel InformationOrdered By: Ryan Magdaleno on 03-14-2025 P Edgar 0 degrees [employer] Work Phone: DE Interval 0 ms [employer] Work Phone: QRS Edgar 146 degrees [employer] Work Phone: QRSD Interval 127 ms [facility] [employer] Work Phone: QT Interval 397 ms [employer] Work Phone: QTC Interval 542 ms [employer] Work Phone: T Wave Edgar -57 degrees [facility] [employer] Work Phone: [employer] Phone: No Panel Informationon 03-14 Atrial flutter IVCD, consider RBBB Probable lateral infarct, age indeterminate Anteroseptal infarct, 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 Electronically Signed On 03-14-2025 15:38:49 EDT by Ryan Yeboah MD - 03/14/2025 IMPRESSION: Atrial flutter IVCD, consider RBBB Probable lateral infarct, age indeterminate Anteroseptal infarct, 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 Electronically Signed On 03-14-2025 15:38:49 EDT by Ryan Magdaleno [facility] Nursing Noteon 03-14-2025 Nursing Note Normal [facility] Progress Noteon 03-14-2025 Progress Note Normal [facility] Progress Note Normal [facility] Progress Note Normal [facility] Vital signsOrdered By: Ryan Magdaleno on 03-14-2025 Heart rate 112 /min bpm [facility] Phone: 30on 03-13-2025 30 Normal [facility] BLOOD GAS, VENOUSon 03-13-20 25 AMOUNT OF OXYGEN Normal [facility] Comment on above: Result Comment: ARPAN Kaplan COMMENTS:Assessment of oxygenation is best done with an arterial blood gas determination. Reference ranges for pO2, bicarbonate, and base excess are for mixed venous blood. Specimens drawn from a peripheral vein will often have higher values. Performed By: #### L AB79 ####Assisted Living Home Director: FENG CONSTANTINO ([id number])[facility] [place] [address] Base excess Calc (BldV) [Moles/Vol] 2.2 mmol/L Normal -3.0-3.0 [facility] Comment on above: Performed By: #### L AB79 ####Assisted Living Home Director: FENG CONSTANTINO ([id number])[facility])[address] [place] [address] CO2 [Moles/Vol] 28.9 mmol/L Normal 23.0-30.0 [facility] Comment on above: Performed By: #### L AB79 ####Assisted Living Home Director: FENG CONSTANTINO ([id number])[facility] [place] ([facility])[address] HCO3 (Bld) [Moles/Vol] 27.5 mmol/L Normal 21.0-30.0 [facility] Comment on above: Performed By: #### L AB79 ####Assisted Living Home Director: FENG CONSTANTINO ([id number])[facility] [place] ([facility])[address] Hemoglobin (Bld) [Mass/Vol] 11.8 g/dL Low Screen only [facility] Comment on above: Performed By: #### L AB79 ####Assisted Living Home Director: FENG CONSTANTINO ([id number])[facility] ([facility])[address] OXYGEN (MM HG) IN VENOUS BLOOD 33.5 mm Hg Normal [facility] Comment on above: Performed By: #### L AB79 ####Assisted Living Home Director: FENG CONSTANTINO ([id number])[facility] ([facility])[address] OXYGEN SATURATION (%) IN VENOUS BLOOD 57.2 % Normal [facility] Comment on above: Performed By: #### L AB79 ####Assisted Living Home Director: FENG CONSTANTINO ([id number])[facility] [place] ([facility])[address] [place] [address] [place] PCO2, JOHNATHAN 45.6 mm Hg Normal 38.0-56.0 [facility] Comment on above: Performed By: #### L AB79 ####Assisted Living Home Director: FENG CONSTANTINO ([id number])[facility] ([facility])[address] PH VENOUS 7.398 Normal 7.320-7.420 [facility] Comment on above: Performed By: #### L AB79 ####Assisted Living Home Director: FENG CONSTANTINO ([id number])[facility]ITAL[facility] ([facility])[address] SOURCE OF OXYGEN Nasal Cannula (LPM) Normal [facility] Comment on above: Performed By: #### L AB79 ####Assisted Living Home Director: FENG CONSTANTINO ([id number])[facility] ([facility])[address] CBC W Auto Differential pane l (Bld)Ordered By: Lakisha Paula on 03-13-2025 Basophils (Bld) [#/Vol] 0.1 10*3/uL 0.0 - 0.2 10*3/uL [facility] [employer] Basophils/100 WBC (Bld) 0.6 % 0.0 - 2.0 % [facility] Eosinophils (Bld) [#/Vol] 0.2 10*3/uL 0.0 - 0.5 10*3/uL [facility] Eosinophils/100 WBC (Bld) 2 % 0.0 - 6.0 % [facility] [employer] Erythrocyte distribution width (RBC) [Ratio] 21.2 % High 11.5 - 15.0 % [facility] [employer] Hematocrit (Bld) [Volume fraction] 28.4 % Low 40.0 - 52.0 % [facility] Hemoglobin (Bld) [Mass/Vol] 8.5 g/dL Low 13.0 - 18.0 g/dL [facility] Immature granulocytes (Bld) [#/Vol] 0 10*3/uL NINF - 0.1 10*3/uL [facility] [employer] Immature granulocytes/100 WBC (Bld) 0.5 % 0.0 - 2.0 % [facility] Interpretation and review of laboratory results Abnormal [facility] Lymphocytes (Bld) [#/Vol] 1.2 10*3/uL 1.0 - 4.3 10*3/uL [facility] [employer] Lymphocytes/100 WBC (Bld) 15.4 % 15.0 - 45.0 % [facility] MCH (RBC) [Entitic mass] 29.7 pg 26. 0 - 34.0 pg [facility] MCHC (RBC) [Mass/Vol] 29.9 % Low 30.5 - 36.0 % [facility] MCV (RBC) [Entitic vol] 99.3 fL High 77.0 - 99.0 fL [facility] Monocytes (Bld) [#/Vol] 1.4 10*3/uL High 0.0 - 0.9 10*3/uL [facility] Monocytes/100 WBC (Bld) 16.9 % High 5.0 - 13.0 % [facility] Neutrophils (Bld) [#/Vol] 5.2 10*3/uL 1.8 - 7.5 10*3/uL [facility] Neutrophils/100 WBC (Bld) 64.6 % 38.0 - 82.0 % [facility] Nucleated RBC/100 WBC (Bld) [Ratio] 0 % [facility] Platelet mean volume (Bld) [Entitic vol] 9.2 fL 9.0 - 12.7 fL [facility] Platelets (Bld) [#/Vol] 392 10*3/uL 140 - 440 10*3/uL [facility] RBC (Bld) [#/Vol] 2.86 10*6/uL Low 4.40 - 5.9 0 10*6/uL [facility] WBC (Bld) [#/Vol] 8 10*3/uL 3.6 - 10.7 10*3/uL [facility] CBC WITH AUTO DIFFERENTIALon 03-13-2025 Basophils (Bld) [#/Vol] 0.1 10*3/uL Normal 0.0-0.2 [facility] Comment on above: Performed By: #### L [id number] ####Assisted Living Home Director: FENG CONSTANTINO ([id number])[facility] ([facility])[address] [place] [address] Basophils/100 WBC (Bld) 0.6 % Normal 0.0-2.0 [facility] Comment on above: Performed By: #### L [id number] ####Assisted Living Home Director: FENG CONSTANTINO ([id number])[facility] ([facility])[address] Eosinophils (Bld) [#/Vol] 0.2 10*3/uL Normal 0.0-0.5 [facility] Comment on above: Performed By: #### L [id number] ####Assisted Living Home Director: FENG [id number])[facility] [place] ([facility])[address] Eosinophils/100 WBC (Bld) 2.0 % Normal 0.0-6.0 [facility] Comment on above: Performed By: #### L [id number] ####Assisted Living Home Director: FENG CONSTANTINO ([id number])[facility] ([facility])[address] Erythrocyte distribution width (RBC) [Ratio] 21.2 % High 11.5-15.0 [facility] Comment on above: Performed By: #### L [id number] ####Assisted Living Home Director: FENG CONSTANTINO ([phone])[facility] ([facility])[address] [place] [address] Hematocrit (Bld) [Volume fraction] 28.4 % Low 40.0-52.0 [facility] Comment on above: Performed By: #### L [id number] ####Assisted Living Home Director: FENG CONSTANTINO ([id number])[facility] ([facility])[address] [place] [address] Hemoglobin (Bld) [Mass/Vol] 8.5 g/dL Low 13.0-18.0 [facility] Comment on above: Performed By: #### L [id number] ####Assisted Living Home Director: FENG CONSTANTINO ([id number])[facility])[address] IMMATURE GRANS % 0.5 % Normal 0.0-2.0 [facility] Comment on above: Performed By: #### L [id number] ####Assisted Living Home Director: FENG CONSTANTINO ([id number])[facility])[address] IMMATURE GRANS ABSOLUTE 0.0 10*3/uL Normal <0.1 [facility] Comment on above: Performed By: #### L [id number] ####Assisted Living Home Director: FENG CONSTANTINO ([id number])[facility] ([facility])[address] Lymphocytes (Bld) [#/Vol] 1.2 10*3/uL Normal 1.0-4.3 [facility] Comment on above: Performed By: #### L [id number] ####Assisted Living Home Director: FENG CONSTANTINO ([id number])[facility] [place] ([facility])[address] Lymphocytes/100 WBC (Bld) 15.4 % Normal 15.0-45.0 [facility] Comment on above: Performed By: #### L [id number] ####Assisted Living Home Director: FENG CONSTANTINO ([id number])[facility] [place] ([facility])[address] MCH (RBC) [Entitic mass] 29.7 pg Normal 26.0-34.0 [facility] Comment on above: Performed By: #### L [id number] ####Assisted Living Home Director: FENG CONSTANTINO ([id number])[facility] [place] ([facility])[address] MCHC 29.9 % Low 30.5-36.0 [facility] Comment on above: Performed By: #### L [id number] ####Assisted Living Home Director: FENG CONSTANTINO ([id number])[facility] [place] ([facility])[address] MCV (RBC) [Entitic vol] 99.3 fL High 77.0-99.0 [facility] Comment on above: Performed By: #### L [id number] ####Assisted Living Home Director: FENG CONSTANTINO ([id number])[facility] [place] ([facility])[address] [place] [address] [place] Monocytes (Bld) [#/Vol] 1.4 10*3/uL High 0.0-0.9 [facility] Comment on above: Performed By: #### L [id number] ####Assisted Living Home Director: FENG CONSTANTINO ([id number])[facility] ([facility])[address] Monocytes/100 WBC (Bld) 16.9 % High 5.0-13.0 [facility] Comment on above: Performed By: #### L [id number] ####Assisted Living Home Director: FENG CONSTANTINO ([id number])[facility] [place] ([facility])[address] NEUTROPHILS ABSOLUTE 5.2 10*3/uL Normal 1.8-7.5 [facility] Comment on above: Performed By: #### L [id number] ####Assisted Living Home Director: FENG CONSTANTINO ([id number])[facility] ([facility])[address] Neutrophils/100 WBC (Bld) 64.6 % Normal 38.0-82.0 [facility] Comment on above: Performed By: #### L [id number] ####Assisted Living Home Director: FENG CONSTANTINO ([id number])[facility] [place] ([facility])[address] NRBC 0.0 /100 WBCs Normal 0.0-2.0 [facility] Comment on above: Performed By: #### L [id number] ####Assisted Living Home Director: FENG CONSTANTINO ([id number])[facility] [place] ([facility])[address] Platelet mean volume (Bld) [Entitic vol] 9.2 fL Normal 9.0-12.7 [facility] Comment on above: Performed By: #### L [id number] ####Assisted Living Home Director: FENG CONSTANTINO ([id number])[facility] [place] ([facility])[address] [place] [address] [place] Platelets (Bld) [#/Vol] 392 10*3/uL Normal 140-440 [facility] Comment on above: Performed By: #### L [id number] ####Assisted Living Home Director: FENG CONSTANTINO ([id number])[facility] [place] ([facility])[address] RBC (Bld) [#/Vol] 2.86 10*6/uL Low 4.40-5.90 [facility] Comment on above: Performed By: #### L [id number] ####Assisted Living Home Director: FENG CONSTANTINO ([id number])[facility] [place] ([facility])[address] WBC (Bld) [#/Vol] 8.0 10*3/uL Normal 3.6-10.7 [facility] Comment on above: Performed By: #### L [id number] ####Assisted Living Home Director: FENG CONSTANTINO ([id number])[facility] ([facility])[address] COMPREHENSIVE METABOLIC PANE Victor M 03-13-2025 Albumin [Mass/Vol] 1.5 g/dL Low 3.5-5.0 [facility] Comment on above: Performed By: #### L AB17 ####Assisted Living Home Director: FENG CONSTANTINO ([id number])[facility] ([facility])[address] ALP [Catalytic activity/Vol] 122 U/L Normal 40-150 [facility] Comment on above: Performed By: #### L AB17 ####Assisted Living Home Director: FENG CONSTANTINO ([id number])[facility] ([facility])[address] ALT [Catalytic activity/Vol] 7 U/L Normal <40 [facility] Comment on above: Performed By: #### L AB17 ####Assisted Living Home Director: FENG CONSTANTINO ([id number])[facility] ([facility])[address] Anion gap [Moles/Vol] 6 mmol/L Normal 3-13 [facility] Comment on above: Performed By: #### L AB17 ####Assisted Living Home Director: FENG CONSTANTINO ([id number])[facility] [place] ([facility])[address] AST [Catalytic activity/Vol] 37 U/L High <34 [facility] Comment on above: Performed By: #### L AB17 ####Assisted Living Home Director: FENG CONSTANTINO ([id number])[facility] [place] ([facility])[address] Bilirubin [Mass/Vol] 0.5 mg/dL Normal <1.2 [facility] Comment on above: Performed By: #### L [id number] ####Assisted Living Home Director: FENG CONSTANTINO ([id number])[facility] [place] (SBHLAB)[address] Calcium [Mass/Vol] 7.3 mg/dL Low 8.4-10.2 [facility] Comment on above: Performed By: #### L [id number] ####Assisted Living Home Director: FENG CONSTANTINO ([id number])[facility] [place] (SB[facility]AB)[address] Chloride [Moles/Vol] 110 mmol/L High 98-107 [facility] Comment on above: Performed By: #### L [id number] ####Assisted Living Home Director: FENG CONSTANTINO ([id number])[facility] [place] (SBHLAB)[address] CO2 [Moles/Vol] 25 mmol/L Normal 22-29 [facility] Comment on above: Performed By: #### L [id number] ####Assisted Living Home Director: FENG CONSTANTINO ([id number])[facility] [place] (SBHLAB)[address] [place] [address] [place] Creatinine [Mass/Vol] 3.32 mg/dL High 0.72-1.25 [facility] Comment on above: Performed By: #### L [id number] ####Assisted Living Home Director: FENG CONSTANTINO ([id number])[facility] [place] (SBHLAB)[address] [place] [address] [place] GLOMERULAR FILTRATION RATE ML/MIN/1.73 SQ M.PREDICTED 20.5 mL/min/1.73m*2 Low >60.0 [facility] Comment on above: Result Comment: Calc ulation based on the Chronic Kidney Disease Epidemiology Collaboration (CKD-EPI) equation refit without adjustment for race Performed By: #### L [id number] ####Assisted Living Home Director: FENG CONSTANTINO ([id number])[facility] [place] (SBHLAB)[address] Glucose [Mass/Vol] 71 mg/dL Low 74-100 [facility] Comment on above: Performed By: #### L [id number] ####Assisted Living Home Director: FENG CONSTANTINO ([id number])[facility] [place] (SBHLAB)[address] Potassium [Moles/Vol] 3.5 mmol/L Normal 3.5-5.1 [facility] Comment on above: Result Comment: [facility] potassium values may be up to 0.5 mmol/L lower than serum values. Performed By: #### L [id number] ####Assisted Living Home Director: FENG CONSTANTINO ([id number])[facility] [place] (SBHLAB)[address] Protein [Mass/Vol] 5.5 g/dL Low 6.4-8.3 [facility] Comment on above: Performed By: #### L [id number] ####Assisted Living Home Director: FENG CONSTANTINO ([id number])[facility] [place] (SBHLAB)[address] [place] [address] [place] Sodium [Moles/Vol] 141 mmol/L Normal 136-145 [facility] Comment on above: Performed By: #### L [id number] ####Assisted Living Home Director: FENG CONSTANTINO ([id number])[facility] [place] (SBHLAB)[address] [place] [address] [place] Urea nitrogen [Mass/Vol] 41 mg/dL High 9-23 [facility] Comment on above: Performed By: #### L [id number] ####Assisted Living Home Director: FENG CONSTANTINO ([id number])[facility] [place] (SBHLAB)155 [place] [id number] [facility] [place] CT CHEST WO IV CONTRASTon CT CHEST WO IV CONTRAST Normal S [facility] CT Chest WO contraston 03-13 1. Congestive [...] Electronically Signed Date/Time: 03/13/2025 12:44 PM EDT [facility] [email or web address] SYSTEM Patient Name: JUN SNYDER : 1965 [id number] Exam Date/Time: 03/13/2025 11:06 Procedure: CT CHEST [...] fracture or destructive osseous lesion is identified. [facility] [employer] Bettye Ribera MD - 03/13/2025 Patient Name: JUN SNYDER : 1965 [facility] [id number] Exam Date/Time: 03/13/2025 11:06 Procedure: CT CHEST [...] Electronically Signed Date/Time: 03/13/2025 12:44 PM EDT [facility] Radiology Study observation (narrative) [facility] Comprehensive Metabolic Prof il 03-13-2025 Bilirubin [Mass/Vol] 0.62 mg/dL Normal 0.00-1.30 [facility] Comment on above: Order Comment: 413.2 Performed By: #### L 300.3900, L500.4050, L100.0100 #### [facility] [address] [place], [address] Comprehensive metabolic 1998 panelon 03-13-2025 Albumin [Mass/Vol] 1.5 g/dL Low 3.5 - 5.0 g/dL [facility] ALP [Catalytic activity/Vol] 122 U/L 40 - 150 U/L [facility] ALT [Catalytic activity/Vol] 7 U/L NINF - 40 U/L [facility] Anion gap [Moles/Vol] 6 mmol/L 3 - 13 mmol/L [facility] AST [Catalytic activity/Vol] 37 U/L High NINF - 34 U/L [facility] Bilirubin [Mass/Vol] 0.5 mg/dL NINF - 1.2 mg/dL [facility] Calcium [Mass/Vol] 7.3 mg/dL Low 8.4 - 10. 2 mg/dL [facility] Chloride [Moles/Vol] 110 mmol/L High 98 - 10 7 mmol/L [facility] CO2 [Moles/Vol] 25 mmol/L 22 - 29 mmol/L [facility] Creatinine [Mass/Vol] 3.32 mg/dL High 0.72 - 1.25 mg/dL [facility] GFR/1.73 sq M.predicted (S/P/Bld) [Vol rate/Area] 20.5 mL/min Low - PINF [facility] Comment on above: Calculation based on the Chronic Kidney Disease Epidemiology Collaboration (CKD-EPI) equation refit without adjustment for race Glucose [Mass/Vol] 71 mg/dL Low 74 - 100 mg/dL [facility] Interpretation and review of laboratory results Abnormal [facility] Potassium [Moles/Vol] 3.5 mmol/L 3.5 - 5.1 mmol/L [facility] Comment on above: Plasma potassium macey ues may be up to 0.5 mmol/L lower than serum values. Protein [Mass/Vol] 5.5 g/dL Low 6.4 - 8.3 g/dL [facility] Sodium [Moles/Vol] 141 mmol/L 136 - 145 mmol/L [facility] Urea nitrogen [Mass/Vol] 41 mg/dL High 9 - 23 mg/d L [facility] ECG 12-LEADon 03-13-2025 ECG 12-LEAD Normal [facility] ED Nursing Noteon 03-13-2025 ED Nursing Note When this RN came back from lunch Pt was already taken to [facility] by Consuelo Day. RN covering my lunch called report to RN at [facility]. Normal [facility] ED Nursing Note Called report to SWEETIE Linder at 5W. Normal [facility] ED Nursing Note Consuelo Johnson at bedside to transport patient to [facility]. Normal [facility] ED Provider Noteon ED Provider Note Normal [facility] HIGH SENSITIVITY TROPONIN, S ERIAL BASELINEon 03-13-2025 TROPONIN HS SERIAL BASELINE 39 ng/L High <=35 [facility] Comment on above: Result Comment: In i ndividuals presenting with symptoms > 2h, a baseline troponin <= 5 ng/L suggests acutecardiac injury is unlikely and further serial testing is generally not indicated. Performed By: #### L [id number] ####Assisted Living Home Director: FENG CONSTANTINO ([id number])[facility] J[place]IE (SBHLAB)[address] [place] [address] HIGH SENSITIVITY TROPONIN, S ERIAL, SECOND TESTon 03-13-2025 2H TROPONIN HS (SERIAL 2ND TROPONIN) 44 ng/L High <=35 [facility] Comment on above: Result Comment: 2h t [...] 3rd serial troponin Performed By: #### L [id number], [id number], [id number] ####Assisted Living Home Director: DOMENICA JARA ([id number])[facility] ([facility])[address] [place] [address] HIGH SENSITIVITY TROPONIN, S ERIAL, THIRD TESTon 03-13-2025 4H TROPONIN HS (SERIAL 3RD TROPONIN) 50 ng/L High <=35 [facility] Comment on above: Result Comment: 4h t [...] valuerequires further evaluation. Performed By: #### L [id number] ####Assisted Living Home Director: DOMENICA JARA ([id number])[facility] ([facility] [place] [address] Laboratory - Chemistry and C hemistry - challengeon 03-13-2025 TSH Qn 6.88 m[IU]/L High [facility] Laboratory - Chemistry and C hemistry - challengeOrdered By: Miya Ang on 03-13-2025 Base excess Calc (BldV) [Moles/Vol] 2.2 mmol/L -3.0 - 3.0 mmol/L [facility] CO2 (BldV) [Partial pressure] 45.6 mm[Hg] [facility] CO2 [Moles/Vol] 28.9 mmol/L 23.0 - 30.0 mmol/L [facility] HCO3 (Bld) [Moles/Vol] 27.5 mmol/L 21.0 - 30.0 mmol/L [facility] Oxygen (BldV) [Partial pressure] 33.5 mm[Hg] mm Hg [facility] pH (BldV) 7.398 [pH] 7.320 - 7.420 [facility] Laboratory - Coagulationon 0 03-13-2025 PT Coag (Bld) [Time] 17.7 s High 9.0 - 12.0 s [facility] - Hematology and Cell countsOrdered By: Miya Ang on 03-13-2025 Hemoglobin (Bld) [Mass/Vol] 11.8 g/dL Low 13.5 - 17.5 g/dl [facility] Laboratory - Microbiology an d Antimicrobial susceptibilityon 03-13-2025 FLUAV RNA EMMANUEL+probe Ql (Resp) Not detected Not Detected [facility] FLUBV RNA EMMANUEL+probe Ql (Resp) Not detected Not Detected [facility] RSV RNA EMMANUEL+probe Ql (Resp) Not detected Not Detected [facility] SARS-CoV-2 (COVID-19) RNA EMMANUEL+probe Ql (Resp) Not detected Not Detected [facility] SARS-CoV-2 (COVID-19) RNA EMMANUEL+probe Ql (Unsp spec) Methodology: real-time, RT-PCR The SARS-CoV-2, Flu A/B, and RSV Combo assay is intended for in vitro diagnostic use under the FDA Emergency Use Authorization (EUA). This test has not been FDA cleared or approved. In compliance with this authorization, please visit www.fda.gov/media/ 9237/download or www.fda.gov/media/ 5632/download to access the applicable information sheets. [facility] NT PRO BNPon 03-13-2025 NT PRO BNP >90578 High <125 [facility] Comment on above: Performed By: #### L [id number], [id number], [id number] ####Assisted Living Home Director: DOMENICA JARA ([id number])[facility] ([address] Natriuretic peptide B [Mass/ Vol]on 03-13-2025 Interpretation and review of laboratory results Abnormal [facility] Natriuretic peptide B (Bld) [Mass/Vol] pg/mL High NINF - 125 pg/mL [facility] No Panel Informationon 03-13 4h Troponin HS (Serial 3rd Troponin) 50 ng/L High NINF - 35 ng/L [facility] Comment on above: 4h troponin (3rd [...] Interpretation and review of laboratory results Abnormal [facility] 2h Troponin HS (Serial 2nd Troponin) 44 ng/L High NINF - 35 ng/L [facility] Comment on above: 2h troponin (2nd [...] Interpretation and review of laboratory results Abnormal [facility] Interpretation and review of laboratory results Abnormal [facility] Troponin HS Serial Baseline 39 ng/L High NINF - 35 ng/L [facility] Comment on above: In individuals prese nting with symptoms > 2h, a baseline troponin <= 5 ng/L suggests acute cardiac injury is unlikely and further serial testing is generally not indicated. [facility] P Edgar 0 degrees [facility] DE Interval 0 ms [facility] QRS Edgar 66 degrees [facility] QRSD Interval 113 ms [facility] QT Interval 372 ms [facility] QTC Interval 520 ms [facility] T Wave Edgar 228 degrees [facility] Atrial flutter with predominant 2:1 AV [...] On 03-13-2025 08:47:27 EDT by Keiry Solares [facility] No Panel InformationOrdered By: Miya Ang on 03-13-2025 Amount Of Oxygen [facility] alth Interpretation and review of laboratory results Abnormal [facility] Source Of Oxygen Nasal Cannula (LPM) [facility] Assessment of oxygenation is best done with an arterial blood gas determination. Reference ranges for pO2, bicarbonate, and base excess are for mixed venous blood. Specimens drawn from a peripheral vein will often have higher values. [facility] Nursing Noteon 03-13-2025 Nursing Note Removed wound vac that patient arrived to 5w from f pictures of all wound taken on rover and saved to chart NSWto DSD applied to sacral wound Normal [facility] PROTHROMBIN TIMEon INR Coag (PPP) [Relative time] 1.7 {INR} High 0.9-1.1 [facility] Comment on above: Result Comment: Vaughn mmended [...] Myocardial Infarction Performed By: #### L [id number] ####Assisted Living Home Director: FENG CONSTANTINO ([id number])[facility])[address] [place] [address] PT Coag (PPP) [Time] 17.7 s High 9.0-12.0 [facility] Comment on above: Performed By: #### L [id number] ####Assisted Living Home Director: FENG CONSTANTINO ([id number])[facility] ([facility])[address] [place] [address] PT Coag (Bld) [Time]on 03-13 INR Coag (PPP) [Relative time] 1.7 {INR} High 0.9 - 1.1 [facility] Comment on above: Recommended Anticoag ulant [...] Interpretation and review of laboratory results Abnormal [facility] SARS-COV-2, FLU A/B, AND RSV COMBOon 03-13-2025 SARS-CoV-2 (COVID-19) RNA EMMANUEL+probe Ql (Unsp spec) Normal [facility] Comment on above: Performed By: #### L [id number] ####Assisted Living Home Director: FENG CONSTANTINO ([id number])[facility] ([facility])[address] [place] [address] SARS-CoV-2, Flu A/B, and RSV Comboon 03-13-2025 Interpretation and review of laboratory results Normal [facility] THYROID STIMULATING HORMONEo n 03-13-2025 THYROID STIMULATING HORMONE 6.88 uIU/mL High 0.35-4.94 [facility] Comment on above: Performed By: #### L [id number], [id number], [id number] ####Assisted Living Home Director: DOMENICA JARA ([id number])[facility] ([facility])[address] [place] [address] TSH Qnon 03-13-2025 Interpretation and review of laboratory results Abnormal [facility] Vital signsOrdered By: Delicia Ang on 03-13-2025 Oxygen saturation in Venous blood 57.2 % [facility] Vital signson 03-13-2025 Heart rate 117 /min bpm [facility] XR Chest Single viewon 03-13 1. Limited supine study. 2. Cardiomegaly with probable pulmonary venous congestion. 3. Hyperinflated lungs with chronic, ill-defined opacities in both lungs which are most likely areas of fibrosis. No definite lung consolidation. Report Dictated on Electronically Signed By: Bettye Ribera MD Electronically Signed Date/Time: 03/13/2025 9:18 AM [facility] [email or web address] SYSTEM Patient Name: JUN SNYDER : 1965 [...] Biapical pleural thickening is chronic. Bones: Unremarkable [facility] Bettye Ribera MD - 03/13/2025 Patient [...] Electronically Signed Date/Time: 03/13/2025 9:18 AM EDT [facility] Radiology Study observation (narrative) [facility] alth XR Chest Single viewOrdered By: Bettye Ribera on 03-13-2025 [facility] [employer] Work Phone: Absolute lymphocyte countOrd ered By: Jayesh Stubbs on 03-12-2025 Lymphocytes Auto (Unsp spec) [#/Vol] 1.12 10*3/uL 0.83-4.51 [facility] Absolute neutrophil countOrd ered By: Jayesh Stbubs on 03-12-2025 Neutrophils (Bld) [#/Vol] 4.3 10*3/uL 2.0-7.7 [facility] Anion gap in Serum or Plasma Ordered By: Jayesh Stubbs on 03-12-2025 Anion gap [Moles/Vol] 13 mmol/L 5-15 [facility] Automated lymphocyte count a s percentage of total leukocytesOrdered By: Jayesh Stubbs on 03-12-2025 Lymphocytes/100 WBC Auto (Unsp spec) 16.9 % Low 19-41 [facility] BUN/creatinine ratioOrdered By: Jayesh Stubbs on 03-12-2025 Urea nitrogen/Creatinine [Mass ratio] 11.8 mg/mg 10-20 [facility] Basophil percentageOrdered B y: Jayesh Stubbs on 03-12-2025 Basophils/100 WBC (Bld) 2.0 % High 0-1 [facility] Bilirubin, totalOrdered By: Jayesh Stubbs on 03-12-2025 Bilirubin [Mass/Vol] 0.62 mg/dL 0.00-1.30 [facility] CBC W/Diff, Automatedon 02-25 Anisocytosis Ql (Bld) 1+ Normal [facility] Comment on above: Order Comment: 413.2 Performed By: #### L 300.3900, L500.4050, L100.0100 #### [facility] [address] [place] [address], [address] Carbon dioxide, total [Moles /volume] in Central venous bloodOrdered By: Jayesh Stubbs on 03-12-2025 CO2 [Moles/Vol] 27.8 mmol/L 21.0-32.0 [facility] Chloride assayOrdered By: George Dorado on 03-12-2025 Chloride [Moles/Vol] 98 mmol/L 98-108 [facility] Eosinophil percentageOrdered By: Jayesh Stubbs on 03-12-2025 Eosinophils/100 WBC (Bld) 2.3 % 0-5 [facility] Erythrocyte distribution wid th ratioOrdered By: Jayesh Stubbs on 03-12-2025 Erythrocyte distribution width (RBC) [Ratio] 21.6 % High 11.6-14.6 [facility] Erythrocyte distribution wid th standard deviationOrdered By: Jayesh Stubbs on 03-12-2025 Erythrocyte distribution width (RBC) [Ratio] 79.4 fl High 35.1-43.9 [facility] Glomerular filtration rate ( GFR) estimation/1.73 sq m using serum, plasma, or whole bOrdered By: Jayesh Stubbs on 03-12-2025 GFR/1.73 sq M.predicted among non-blacks MDRD (S/P/Bld) [Vol rate/Area] 14 mL/min/{1.73_m2} Low >60 [facility] Comment on above: mL/min/1.73m2 CKD-EP I Creatinine Equation (2020) Hematocrit Auto (Bld) [Volum e fraction]Ordered By: Jayesh Stubbs on 03-12-2025 Hematocrit (Bld) [Volume fraction] 28.7 % Low 40-54 [facility] Hemoglobin measurementOrdere d By: Jayesh Stubbs on 03-12-2025 Hemoglobin (Bld) [Mass/Vol] 8.7 g/dL Low 13.0-16.5 [facility] Immature granulocytes/100 WB C Auto (Bld)Ordered By: Jayesh Stubbs on 03-12-2025 Immature granulocytes/100 WBC (Bld) 0.300 % 0.0-0.9 [facility] Comment on above: IG% - Immature Granu locytes (promyelocytes, myelocytes and metamyelocytes) > 1% indicates that a LEFT SHIFT is Present. International normalized rat io (INR) calculationOrdered By: Jayesh Stubbs on 03-12-2025 INR Coag (Bld) [Relative time] 1.9 {INR} [facility] - Chemistry and C hemistry - challengeOrdered By: Jayesh Stubbs on 03-12-2025 AST [Catalytic activity/Vol] 47 U/L High <38 [facility] - Hematology and Cell countsOrdered By: Jayesh Stubbs on 03-12-2025 Anisocytosis Ql (Bld) 1+ [facility] MCV (mean corpuscular volume ) determinationOrdered By: Jayesh Stubbs on 03-12-2025 MCV (RBC) [Entitic vol] 100.3 fL High 80-94 [facility] Mean corpuscular hemoglobin (MCH) determinationOrdered By: Jayesh Stubbs on 03-12-2025 MCH (RBC) [Entitic mass] 30.4 pg 27.0-32.0 [facility] Mean corpuscular hemoglobin concentration (MCHC) determinationOrdered By: Jayesh Stubbs on 03-12-2025 MCHC (RBC) [Mass/Vol] 30.3 g/dL Low 32-36 [facility] Mean platelet volume determi nationOrdered By: Jayesh Stubbs on 03-12-2025 Platelet mean volume (Bld) [Entitic vol] 9.5 fL 6.2-12.0 [facility] Monocyte percentageOrdered B y: Jayesh Stubbs on 03-12-2025 Monocytes/100 WBC (Bld) 14.2 % High 0-10 [facility] Neutrophil percentageOrdered By: Jayehs Stubbs on 03-12-2025 Neutrophils/100 WBC (Bld) 64.3 % 47-70 [facility] Nucleated red blood cell per centageOrdered By: Jayesh Stubbs on 03-12-2025 Nucleated RBC/100 WBC (Bld) [Ratio] 0.3 % 0-5 [facility] Platelet countOrdered By: George Dorado on 03-12-2025 Platelets (Bld) [#/Vol] 404 10*3/uL 150-450 [facility] Potassium measurement (mass/ volume)Ordered By: Jayesh Stubbs on 03-12-2025 Potassium (Unsp spec) [Mass/Vol] 4.1 mmol/L 3.3-5.1 [facility] Prothrombin Time w/INRon INR Coag (PPP) [Relative time] 1.9 {INR} Normal [facility] Comment on above: Order Comment: 413.2 Performed By: #### L 300.3900, L500.4050, L100.0100 #### [facility] [address] [place], [address] PT Coag (PPP) [Time] 22.4 s High 11.7-14.9 [facility] Comment on above: Order Comment: 413.2 Performed By: #### L 300.3900, L500.4050, L100.0100 #### [facility] [address] [place], [address] Prothrombin timeOrdered By: Jayesh Stubbs on 03-12-2025 PT Coag (PPP) [Time] 22.4 s High 11.7-14.9 [facility] RBC Auto (Bld) [#/Vol]Ordere d By: Jayesh Stubbs on 03-12-2025 RBC (Bld) [#/Vol] 2.86 10*6/uL Low 4.6-6.2 [facility] Serum creatinine measurement (mass/volume)Ordered By: Jayesh Stubbs on 03-12-2025 Creatinine [Mass/Vol] 4.67 mg/dL High 0.70-1.20 [facility] Serum globulin measurementOr dered By: Jayesh Stubbs on 03-12-2025 Globulin (S) [Mass/Vol] 4.1 g/dL 2.2-4.2 [facility] Serum glucose measurement (m ass/volume)Ordered By: Jayesh Stubbs on 03-12-2025 Glucose [Mass/Vol] 102 mg/dL High 70-99 [facility] Serum or plasma alanine mayorga otransferase (ALT) measurementOrdered By: Jayesh Stubbs on 03-12-2025 ALT [Catalytic activity/Vol] 20 U/L <47 [facility] Serum or plasma albumin audrey urement (mass/volume)Ordered By: Jayesh Stubbs on 03-12-2025 Albumin [Mass/Vol] 3.0 g/dL Low 3.5-5.0 [facility] Serum or plasma albumin/glob ulin mass ratioOrdered By: Jayesh Stubbs on 03-12-2025 Albumin/Globulin [Mass ratio] 0.7 {ratio} Low 0.9-2.4 [facility] Serum or plasma alkaline jacob sphatase measurementOrdered By: Jayesh Stubbs on 03-12-2025 ALP [Catalytic activity/Vol] 171 U/L High 40-129 [facility] Serum or plasma calcium audrey urement (mass/volume)Ordered By: Jayesh Stubbs on 03-12-2025 Calcium [Mass/Vol] 9.9 mg/dL 7.6-11.0 [facility] Serum or plasma urea nitroge n measurement (mass/volume)Ordered By: Jayesh Stubbs on 03-12-2025 Urea nitrogen [Mass/Vol] 55 mg/dL High 4-19 [facility] Sodium levelOrdered By: George Stubbs on 03-12-2025 Sodium [Moles/Vol] 139 mmol/L 133-145 [facility] Total proteinOrdered By: Snoia Stubbs on 03-12-2025 Protein [Mass/Vol] 7.1 g/dL 5.9-8.4 [facility] White blood cell (WBC) count Ordered By: Jayesh Stubbs on 03-12-2025 WBC (Bld) [#/Vol] 6.6 10*3/uL 4.4-11.0 [facility] Potassiumon 03-09-2025 Potassium [Moles/Vol] 4.1 mmol/L Normal 3.3-5.1 [facility] Comment on above: Order Comment: 412.2 Performed By: #### L 100.0100, L500.4050, L300.3900 #### [facility] [address] [place], [place], [id number] Potassium measurement (mass/ volume)Ordered By: Jayesh Stubbs on 03-09-2025 Potassium (Unsp spec) [Mass/Vol] 4.1 mmol/L 3.3-5.1 [facility] 36on 03-08-2025 36 2nd attempt called and spoke to the Alyssa the Nurse for the patient at the facility he lives at. She states Sabino is the person who schedules the appointments and she is on vacation and wont be back till next Wednesday. I will try again next wednesday [facility] Progress Noteon 03-08-2025 Progress Note [facility] 36on 03-06-2025 36 Pt DC to [facility] [phone] 03-05-2025 [id number] [facility] [id number] Auth is now pending with [facility] for [facility]. Auth ID: [id number] . The insurance needs PT and OT notes- as PT note yesterday incomplete , they are both requested . [facility] [id number] [facility] [phone] Discharge med list transmitted to [facility] via [employer] per TCC request. Normal [facility] [id number] Normal [facility] [phone] Normal [facility] APTTon 03-05-2025 aPTT Coag (Bld) [Time] 37.6 s High 20.0-30.5 [facility] Comment on above: Result Comment: ARPAN [facility] COMMENTS:NOTE: The therapeutic time for Heparin anticoagulation, based on Xa activity inhibition, is an APTT of 46-80 seconds. Performed By: #### L [id number], [id number] ####Assisted Living Home Director: DOMENICA JARA ([id number])[facility])[address] [place] [address] BASIC METABOLIC PANELon 06-0 Anion gap [Moles/Vol] 8 mmol/L Normal 3-13 [facility] Comment on above: Performed By: #### L AB15 ####Assisted Living Home Director: DOMENICA JARA ([phone])[facility] ([facility])[address] [place] [address] Calcium [Mass/Vol] 9.7 mg/dL Normal 8.4-10.2 [facility] Comment on above: Performed By: #### L AB15 ####Assisted Living Home Director: DOMENICA JARA ([phone])[facility] ([facility])[address] [place] [address] [place] Chloride [Moles/Vol] 102 mmol/L Normal 98-107 [facility] Comment on above: Performed By: #### L AB15 ####Assisted Living Home Director: DOMENICA JARA ([phone])[facility] ([facility])[address] [place] [address] [place] CO2 [Moles/Vol] 26 mmol/L Normal 22-29 [facility] Comment on above: Performed By: #### L AB15 ####Assisted Living Home Director: DOMENICA JARA ([phone])[facility] ([facility])[address] [place] [address] [place] Creatinine [Mass/Vol] 3.10 mg/dL High 0.72-1.25 [facility] Comment on above: Performed By: #### L AB15 ####Assisted Living Home Director: DOMENICA JARA ([phone])[facility])[address] [place] [address] GLOMERULAR FILTRATION RATE ML/MIN/1.73 SQ M.PREDICTED 22.3 mL/min/1.73m*2 Low >60.0 [facility] Comment on above: Result Comment: Calc ulation based on the Chronic Kidney Disease Epidemiology Collaboration (CKD-EPI) equation refit without adjustment for race Performed By: #### L AB15 ####Assisted Living Home Director: DOMENICA JARA ([phone])[facility])[address] [place] [address] Glucose [Mass/Vol] 68 mg/dL Low 74-100 [facility] Comment on above: Performed By: #### L AB15 ####Assisted Living Home Director: DOMENICA JARA ([phone])[facility])[address] [place] [address] Potassium [Moles/Vol] 5.9 mmol/L High 3.5-5.1 [facility] Comment on above: Result Comment: [facility] potassium values may be up to 0.5 mmol/L lower than serum values. Performed By: #### L AB15 ####Assisted Living Home Director: DOMENICA JARA ([phone])[facility] ([facility])[address] [place] [address] Sodium [Moles/Vol] 136 mmol/L Normal 136-145 [facility] Comment on above: Performed By: #### L AB15 ####Assisted Living Home Director: DOMENICA JARA ([phone])[facility])[address] [place] [address] Urea nitrogen [Mass/Vol] 27 mg/dL High 9-23 [facility] Comment on above: Performed By: #### L AB15 ####Assisted Living Home Director: DOMENICA [phone])[facility])[address] Anion gap [Moles/Vol] 9 mmol/L Normal 3-13 [facility] Comment on above: Performed By: #### L AB15 ####Assisted Living Home Director: DOMENICA JARA ([phone])[facility] ([facility])[address] [place] [address] Calcium [Mass/Vol] 9.7 mg/dL Normal 8.4-10.2 [facility] Comment on above: Performed By: #### L AB15 ####Assisted Living Home Director: DOMENICA JARA ([phone])[facility] ([facility])[address] [place] [address] Chloride [Moles/Vol] 102 mmol/L Normal 98-107 [facility] Comment on above: Performed By: #### L AB15 ####Assisted Living Home Director: DOMENICA JARA ([phone])[facility])[address] [place] [address] CO2 [Moles/Vol] 25 mmol/L Normal 22-29 [facility] Comment on above: Performed By: #### L AB15 ####Assisted Living Home Director: DOMENICA JARA ([phone])[facility] ([facility])[address] [place] [address] Creatinine [Mass/Vol] 3.03 mg/dL High 0.72-1.25 [facility] Comment on above: Performed By: #### L AB15 ####Assisted Living Home Director: DOMENICA JARA ([phone])[facility])[address] [place] [address] GLOMERULAR FILTRATION RATE ML/MIN/1.73 SQ M.PREDICTED 22.9 mL/min/1.73m*2 Low >60.0 [facility] Comment on above: Result Comment: Calc ulation based on the Chronic Kidney Disease Epidemiology Collaboration (CKD-EPI) equation refit without adjustment for race Performed By: #### L AB15 ####Assisted Living Home Director: DOMENICA JARA ([phone])[facility] ([facility])[address] [place] [address] Glucose [Mass/Vol] 77 mg/dL Normal 74-100 [facility] Comment on above: Performed By: #### L AB15 ####Assisted Living Home Director: DOMENICA JARA ([phone])[facility])[address] [place] [address] Potassium [Moles/Vol] 6.6 mmol/L Critically high 3.5-5.1 [facility] Comment on above: Result Comment: [facility] potassium values may be up to 0.5 mmol/L lower than serum values. Performed By: #### L AB15 ####Assisted Living Home Director: DOMENICA JARA ([phone])[facility] ([facility])[address] [place] [address] Sodium [Moles/Vol] 136 mmol/L Normal 136-145 [facility] Comment on above: Performed By: #### L AB15 ####Assisted Living Home Director: DOMENICA JARA ([phone])[facility] ([facility])[address] [place] [address] Urea nitrogen [Mass/Vol] 26 mg/dL High 9-23 [facility] Comment on above: Performed By: #### L AB15 ####Assisted Living Home Director: DOMENICA JARA ([phone])[facility])[address] [place] [address] Basic metabolic 1998 panelon 03-05-2025 Anion gap [Moles/Vol] 8 mmol/L 3 - 13 mmol/L [facility] Calcium [Mass/Vol] 9.7 mg/dL 8.4 - 10. 2 mg/dL [facility] Chloride [Moles/Vol] 102 mmol/L 98 - 10 7 mmol/L [facility] CO2 [Moles/Vol] 26 mmol/L 22 - 29 mmol/L [facility] Creatinine [Mass/Vol] 3.1 mg/dL High 0.72 - 1.25 mg/dL [facility] GFR/1.73 sq M.predicted (S/P/Bld) [Vol rate/Area] 22.3 mL/min Low - PINF [facility] Glucose [Mass/Vol] 68 mg/dL Low 74 - 100 mg/dL [facility] Interpretation and review of laboratory results Abnormal [facility] Potassium [Moles/Vol] 5.9 mmol/L High 3.5 - 5.1 mmol/L [facility] Sodium [Moles/Vol] 136 mmol/L 136 - 145 mmol/L [facility] Urea nitrogen [Mass/Vol] 27 mg/dL High 9 - 23 mg/d L [facility] Anion gap [Moles/Vol] 9 mmol/L 3 - 13 mmol/L [facility] Calcium [Mass/Vol] 9.7 mg/dL 8.4 - 10. 2 mg/dL [facility] Chloride [Moles/Vol] 102 mmol/L 98 - 10 7 mmol/L [facility] CO2 [Moles/Vol] 25 mmol/L 22 - 29 mmol/L [facility] Creatinine [Mass/Vol] 3.03 mg/dL High 0.72 - 1.25 mg/dL [facility] GFR/1.73 sq M.predicted (S/P/Bld) [Vol rate/Area] 22.9 mL/min Low - PINF [facility] Glucose [Mass/Vol] 77 mg/dL 74 - 100 mg/dL [facility] Interpretation and review of laboratory results Abnormal [facility] Potassium [Moles/Vol] 6.6 mmol/L Critically high 3.5 - 5.1 mmol/L [facility] Sodium [Moles/Vol] 136 mmol/L 136 - 145 mmol/L [facility] Urea nitrogen [Mass/Vol] 26 mg/dL High 9 - 23 mg/d L [facility] CBC (HEMOGRAM)on 03-05-2025 Erythrocyte distribution width (RBC) [Ratio] 21.6 % High 11.5-15.0 [facility] Comment on above: Performed By: #### L AB294 ####Assisted Living Home Director: DOMENICA JARA ([phone])[address] Hematocrit (Bld) [Volume fraction] 25.7 % Low 40.0-52.0 [facility] Comment on above: Performed By: #### L AB294 ####Assisted Living Home Director: DOMENICA JARA ([phone])[address] Hemoglobin (Bld) [Mass/Vol] 7.7 g/dL Low 13.0-18.0 [facility] Comment on above: Performed By: #### L AB294 ####Assisted Living Home Director: DOMENICA JARA ([phone])[facility] ([facility])[address] [place] [address] MCH (RBC) [Entitic mass] 29.7 pg Normal 26.0-34.0 [facility] Comment on above: Performed By: #### L AB294 ####Assisted Living Home Director: DOMENICA JARA ([phone])[facility] ([facility])[address] [place] [address] MCHC 30.0 % Low 30.5-36.0 [facility] Comment on above: Performed By: #### L AB294 ####Assisted Living Home Director: DOMENICA JARA ([phone])[facility])[address] [place] [address] MCV (RBC) [Entitic vol] 99.2 fL High 77.0-99.0 [facility] Comment on above: Performed By: #### L AB294 ####Assisted Living Home Director: DOMENICA JARA ([phone])[facility] ([facility])[address] [place] [address] Platelet mean volume (Bld) [Entitic vol] 9.1 fL Normal 9.0-12.7 [facility] Comment on above: Performed By: #### L AB294 ####Assisted Living Home Director: DOMENICA JARA ([phone])[facility] ([facility])[address] [place] [address] Platelets (Bld) [#/Vol] 303 10*3/uL Normal 140-440 [facility] Comment on above: Performed By: #### L AB294 ####Assisted Living Home Director: DOMENICA JARA ([phone])[facility])[address] [place] [address] RBC (Bld) [#/Vol] 2.59 10*6/uL Low 4.40-5.90 [facility] Comment on above: Performed By: #### L AB294 ####Assisted Living Home Director: DOMENICA JARA ([phone])[facility] ([facility])[address] [place] [address] WBC (Bld) [#/Vol] 9.1 10*3/uL Normal 3.6-10.7 [facility] Comment on above: Performed By: #### L AB294 ####Assisted Living Home Director: DOMENICA JARA ([phone])[facility] ([facility])[address] [place] [address] CBC W/Diff, Automatedon 06-0 Absolute Neut Normal 2.0-7.7 [facility] Comment on above: Order Comment: 412.2 Result Comment: [facility] Performed By: #### L 300.3900 #### [facility] [address] [place], [address] HCT Normal 40-54 [facility] Comment on above: Order Comment: 412.2 Result Comment: [facility] Performed By: #### L 300.3900 #### [facility] [address] [place], [address] HGB Normal 13.0-16.5 [facility] Comment on above: Order Comment: 412.2 Result Comment: [facility] Performed By: #### L 300.3900 #### [facility] [address] [place], [address] MCH Normal 27.0-32.0 [facility] Comment on above: Order Comment: 412.2 Result Comment: [facility] Performed By: #### L 300.3900 #### [facility] [address] [place], [address] MCHC Normal 32-36 [facility] Comment on above: Order Comment: 412.2 Result Comment: [facility] Performed By: #### L 300.3900 #### [facility] [address] [place], [address] MCV Normal 80-94 [facility] Comment on above: Order Comment: 412.2 Result Comment: [facility] Performed By: #### L 300.3900 #### [facility] [address] [place], [address] NEUT% Normal 47-70 [facility] Comment on above: Order Comment: 412.2 Result Comment: [facility] Performed By: #### L 300.3900 #### [facility] [address] [place], [address] PLT Normal 150-450 [facility] Comment on above: Order Comment: 412.2 Result Comment: [facility] Performed By: #### L 300.3900 #### [facility] [address] [place], [address] RBC Normal 4.6-6.2 [facility] Comment on above: Order Comment: 412.2 Result Comment: [facility] Performed By: #### L 300.3900 #### [facility] [address] [place], [address] RDW CV Normal 11.6-14.6 [facility] Comment on above: Order Comment: 412.2 Result Comment: [facility] Performed By: #### L 300.3900 #### [facility] [address] [place], [address] RDW SD Normal 35.1-43.9 [facility] Comment on above: Order Comment: 412.2 Result Comment: [facility] Performed By: #### L 300.3900 #### [facility] [address] [place], [address] WBC Normal 4.4-11.0 [facility] Comment on above: Order Comment: 412.2 Result Comment: [facility] Performed By: #### L 300.3900 #### [facility] [address] [place], [address] CBC panel Auto (Bld)on 03-05 Erythrocyte distribution width (RBC) [Ratio] 21.6 % High 11.5 - 15.0 % [facility] Hematocrit (Bld) [Volume fraction] 25.7 % Low 40.0 - 52.0 % [facility] Hemoglobin (Bld) [Mass/Vol] 7.7 g/dL Low 13.0 - 18.0 g/dL [facility] Interpretation and review of laboratory results Abnormal [facility] MCH (RBC) [Entitic mass] 29.7 pg 26. 0 - 34.0 pg [facility] MCHC (RBC) [Mass/Vol] 30 % Low 30.5 - 36.0 % [facility] MCV (RBC) [Entitic vol] 99.2 fL High 77.0 - 99.0 fL [facility] Platelet mean volume (Bld) [Entitic vol] 9.1 fL 9.0 - 12.7 fL [facility] Platelets (Bld) [#/Vol] 303 10*3/uL 140 - 440 10*3/uL [facility] RBC (Bld) [#/Vol] 2.59 10*6/uL Low 4.40 - 5.9 0 10*6/uL [facility] WBC (Bld) [#/Vol] 9.1 10*3/uL 3.6 - 10.7 10*3/uL [facility] Comprehensive Metabolic Prof ilon 03-05-2025 ALB Normal 3.5-5.0 [facility] Comment on above: Order Comment: 412.2 Result Comment: [facility] Performed By: #### L 300.3900 #### [facility] [address] [place], [address] ALK PHOS Normal 40-129 [facility] Comment on above: Order Comment: 412.2 Result Comment: [facility] Performed By: #### L 300.3900 #### [facility] [address] [place], [address] ALT Normal <=46 [facility] Comment on above: Order Comment: 412.2 Result Comment: [facility] Performed By: #### L 300.3900 #### [facility] [address] [place], [address] AST Normal <=37 [facility] Comment on above: Order Comment: 412.2 Result Comment: [facility] Performed By: #### L 300.3900 #### [facility] [address] [place], [address] BUN Normal 4-19 [facility] Comment on above: Order Comment: 412.2 Result Comment: [facility] Performed By: #### L 300.3900 #### [facility] [address] [place], [address] BUN/CRE Normal 10-20 [facility] Comment on above: Order Comment: 412.2 Result Comment: [facility] Performed By: #### L 300.3900 #### [facility] [address] [place], [address] Calcium Normal 7.6-11.0 [facility] Comment on above: Order Comment: 412.2 Result Comment: [facility] Performed By: #### L 300.3900 #### [facility] [address] [place], [address] CL Normal 98-108 [facility] Comment on above: Order Comment: 412.2 Result Comment: [facility] Performed By: #### L 300.3900 #### [facility] [address] [place], [address] CO2 Normal 21.0-32.0 [facility] Comment on above: Order Comment: 412.2 Result Comment: [facility] Performed By: #### L 300.3900 #### [facility] [address] [place], [address] CREAT,SERUM Normal 0.70-1.20 [facility] Comment on above: Order Comment: 412.2 Result Comment: [facility] Performed By: #### L 300.3900 #### [facility] [address] [place], [address] eGFR Normal >60 [facility] Comment on above: Order Comment: 412.2 Result Comment: [facility] Performed By: #### L 300.3900 #### [facility] [address] [place], [address] GAP Normal 5-15 [facility] Comment on above: Order Comment: 412.2 Result Comment: [facility] Performed By: #### L 300.3900 #### [facility] [address] [place], [address] GLU Normal 70-99 [facility] Comment on above: Order Comment: 412.2 Result Comment: [facility] Performed By: #### L 300.3900 #### [facility] [address] [place], [address] Potassium Normal 3.3-5.1 [facility] Comment on above: Order Comment: 412.2 Result Comment: [facility] Performed By: #### L 300.3900 #### [facility] [address] [place], [address] T BILI Normal 0.00-1.30 [facility] Comment on above: Order Comment: 412.2 Result Comment: [facility] Performed By: #### L 300.3900 #### [facility] [address] [place], [address] T PROT Normal 5.9-8.4 [facility] Comment on above: Order Comment: 412.2 Result Comment: [facility] Performed By: #### L 300.3900 #### [facility] [address] [place], [address] Comprehensive Metabolic Profil Normal 133-145 [facility] Comment on above: Order Comment: 412.2 Result Comment: [facility] Performed By: #### L 300.3900 #### [facility] [address] [place], [address] Laboratory - Chemistry and C hemistry - challengeon 03-05-2025 Glucose [Mass/Vol] 142 mg/dL High 70 - 100 mg/dL [facility] Glucose [Mass/Vol] 83 mg/dL 70 - 100 mg/dL [facility] Laboratory - Coagulationon 0 03-05-2025 PT Coag (Bld) [Time] 18.6 s High 9.0 - 12.0 s [facility] No Panel Informationon 03-05 Interpretation and review of laboratory results Abnormal [facility] Interpretation and review of laboratory results Normal [facility] Interpretation and review of laboratory results Abnormal [facility] PROTHROMBIN TIMEon INR Coag (PPP) [Relative time] 1.8 {INR} High 0.9-1.1 [facility] Comment on above: Result Comment: Vaughn mmended [...] Myocardial Infarction Performed By: #### Tameka AB325, [id number] ####Assisted Living Home Director: DOMENICA JARA ([phone])[facility])[address] [place] [address] PT Coag (PPP) [Time] 18.6 s High 9.0-12.0 [facility] [employer] [facility] Comment on above: Performed By: #### Tameka AB325, [id number] ####Assisted Living Home Director: DOMENICA JARA ([phone])[facility] ([facility])[address] [place] [address] PT Coag (Bld) [Time]on 03-05 INR Coag (PPP) [Relative time] 1.8 {INR} High 0.9 - 1.1 [facility] Progress Noteon 03-05-2025 Progress Note [facility] Progress Note Normal [facility] Progress Note Normal [facility] Progress Note Normal [facility] Progress Note Normal [facility] Prothrombin Time w/INRon INR Normal [facility] Comment on above: Order Comment: 412.2 Result Comment: [facility] Performed By: #### L 300.3900 #### [facility] [address] [place], [place], [address] PROTIME Normal 11.7-14.9 [facility] Comment on above: Order Comment: 412.2 Result Comment: [facility] Performed By: #### L 300.3900 #### [facility] [address] [place], [place], [address] aPTT Coag (Bld) [Time]on aPTT Coag (PPP) [Time] 37.6 s High 20.0 - 30.5 s [facility] 30on 03-04-2025 30 Normal [facility] [id number] 03-04-2025 [id number] Normal [facility] APTTon 03-04-2025 aPTT Coag (Bld) [Time] 52.2 s High 20.0-30.5 [facility] Comment on above: Result Comment: ARPAN [facility] COMMENTS:NOTE: The therapeutic time for Heparin anticoagulation, based on Xa activity inhibition, is an APTT of 46-80 seconds. Performed By: #### L AB325, [id number] ####Assisted Living Home Director: DOMENICA JARA ([phone])[address] BASIC METABOLIC PANELon Anion gap [Moles/Vol] 11 mmol/L Normal 3-13 [facility] Comment on above: Performed By: #### L AB15 ####Assisted Living Home Director: DOMENICA JARA ([phone])[facility] [place] [address] Calcium [Mass/Vol] 9.4 mg/dL Normal 8.4-10.2 [facility] Comment on above: Performed By: #### L AB15 ####Assisted Living Home Director: DOMENICA JARA ([phone])[facility] ([facility])[address] [place] [address] Chloride [Moles/Vol] 103 mmol/L Normal 98-107 [facility] Comment on above: Performed By: #### L AB15 ####Assisted Living Home Director: DOMENICA JARA ([phone])[facility] ([facility])[address] [place] [address] CO2 [Moles/Vol] 27 mmol/L Normal 22-29 [facility] Comment on above: Performed By: #### L AB15 ####Assisted Living Home Director: DOMENICA JARA ([phone])[facility] ([facility])[address] [place] [address] Creatinine [Mass/Vol] 2.41 mg/dL High 0.72-1.25 [facility] Comment on above: Performed By: #### L AB15 ####Assisted Living Home Director: DOMENICA JARA ([phone])[facility] ([facility])[address] [place] [address] [place] GLOMERULAR FILTRATION RATE ML/MIN/1.73 SQ M.PREDICTED 30.2 mL/min/1.73m*2 Low >60.0 [facility] Comment on above: Result Comment: Calc ulation based on the Chronic Kidney Disease Epidemiology Collaboration (CKD-EPI) equation refit without adjustment for race Performed By: #### L AB15 ####Assisted Living Home Director: DOMENICA JARA ([phone])[facility] ([facility])[address] [place] [address] Glucose [Mass/Vol] 99 mg/dL Normal 74-100 [facility] Comment on above: Performed By: #### L AB15 ####Assisted Living Home Director: DOMENICA JARA ([phone])[facility] ([facility])[address] [place] [address] Potassium [Moles/Vol] 5.1 mmol/L Normal 3.5-5.1 [facility] Comment on above: Result Comment: [facility] potassium values may be up to 0.5 mmol/L lower than serum values. Performed By: #### L AB15 ####Assisted Living Home Director: DOMENICA JARA ([phone])[facility] ([facility])[address] [place] [address] Sodium [Moles/Vol] 141 mmol/L Normal 136-145 [facility] Comment on above: Performed By: #### L AB15 ####Assisted Living Home Director: DOMENICA JARA ([phone])[facility] ([facility])[address] [place] [address] Urea nitrogen [Mass/Vol] 18 mg/dL Normal 9-23 [facility] Comment on above: Performed By: #### L AB15 ####Assisted Living Home Director: DOMENICA JARA ([phone])[facility] [facility])[address] [place] [address] Basic metabolic 1998 panelon 03-04-2025 Anion gap [Moles/Vol] 11 mmol/L 3 - 13 mmol/L [facility] Calcium [Mass/Vol] 9.4 mg/dL 8.4 - 10. 2 mg/dL [facility] Chloride [Moles/Vol] 103 mmol/L 98 - 10 7 mmol/L [facility] CO2 [Moles/Vol] 27 mmol/L 22 - 29 mmol/L [facility] Creatinine [Mass/Vol] 2.41 mg/dL High 0.72 - 1.25 mg/dL [facility] GFR/1.73 sq M.predicted (S/P/Bld) [Vol rate/Area] 30.2 mL/min Low - PINF [facility] Glucose [Mass/Vol] 99 mg/dL 74 - 100 mg/dL [facility] Interpretation and review of laboratory results Abnormal [facility] Potassium [Moles/Vol] 5.1 mmol/L 3.5 - 5.1 mmol/L [facility] Sodium [Moles/Vol] 141 mmol/L 136 - 145 mmol/L [facility] Urea nitrogen [Mass/Vol] 18 mg/dL 9 - 23 mg/d L [facility] CBC (HEMOGRAM)on 03-04-2025 Erythrocyte distribution width (RBC) [Ratio] 21.4 % High 11.5-15.0 [facility] Comment on above: Performed By: #### L [id number] ####Assisted Living Home Director: DOMENICA JARA ([phone])[facility])[address] [place] [address] Hematocrit (Bld) [Volume fraction] 25.9 % Low 40.0-52.0 [facility] Comment on above: Performed By: #### L AB294 ####Assisted Living Home Director: DOMENICA JARA ([phone])[facility])[address] [place] [address] Hemoglobin (Bld) [Mass/Vol] 7.7 g/dL Low 13.0-18.0 [facility] Comment on above: Performed By: #### L AB294 ####Assisted Living Home Director: DOMENICA JARA ([phone])[facility])[address] [place] [address] MCH (RBC) [Entitic mass] 29.3 pg Normal 26.0-34.0 [facility] Comment on above: Performed By: #### L AB294 ####Assisted Living Home Director: DOMENICA JARA ([id number])[facility])[address] [place] [address] MCHC 29.7 % Low 30.5-36.0 [facility] Comment on above: Performed By: #### L AB294 ####Assisted Living Home Director: DOMENICA JARA ([phone])[facility])[address] [place] [address] MCV (RBC) [Entitic vol] 98.5 fL Normal 77.0-99.0 [facility] Comment on above: Performed By: #### L AB294 ####Assisted Living Home Director: DOMENICA JARA ([phone])[facility])[address] [place] [address] Platelet mean volume (Bld) [Entitic vol] 9.3 fL Normal 9.0-12.7 [facility] Comment on above: Performed By: #### L AB294 ####Assisted Living Home Director: DOMENICA JARA ([phone])[facility] ([facility])[address] [place] [address] Platelets (Bld) [#/Vol] 324 10*3/uL Normal 140-440 [facility] Comment on above: Performed By: #### L AB294 ####Assisted Living Home Director: DOMENICA JARA ([phone])[facility] ([facility])[address] [place] [address] RBC (Bld) [#/Vol] 2.63 10*6/uL Low 4.40-5.90 [facility] Comment on above: Performed By: #### L AB294 ####Assisted Living Home Director: DOMENICA JARA ([id number])[facility] ([facility])[address] [place] [address] WBC (Bld) [#/Vol] 7.7 10*3/uL Normal 3.6-10.7 [facility] Comment on above: Performed By: #### L AB294 ####Assisted Living Home Director: DOMENICA JARA ([phone])[facility])[address] [place] [address] CBC panel Auto (Bld)on 03-04 Erythrocyte distribution width (RBC) [Ratio] 21.4 % High 11.5 - 15.0 % [facility] Hematocrit (Bld) [Volume fraction] 25.9 % Low 40.0 - 52.0 % [facility] Hemoglobin (Bld) [Mass/Vol] 7.7 g/dL Low 13.0 - 18.0 g/dL [facility] Interpretation and review of laboratory results Abnormal [facility] MCH (RBC) [Entitic mass] 29.3 pg 26. 0 - 34.0 pg [facility] MCHC (RBC) [Mass/Vol] 29.7 % Low 30.5 - 36.0 % [facility] MCV (RBC) [Entitic vol] 98.5 fL 77.0 - 99.0 fL [facility] Platelet mean volume (Bld) [Entitic vol] 9.3 fL 9.0 - 12.7 fL [facility] Platelets (Bld) [#/Vol] 324 10*3/uL 140 - 440 10*3/uL [facility] RBC (Bld) [#/Vol] 2.63 10*6/uL Low 4.40 - 5.9 0 10*6/uL [facility] WBC (Bld) [#/Vol] 7.7 10*3/uL 3.6 - 10.7 10*3/uL [facility] Laboratory - Coagulationon 0 03-04-2025 PT Coag (Bld) [Time] 16.6 s High 9.0 - 12.0 s [facility] PT Coag (Bld) [Time] 15.5 s High 9.0 - 12.0 s [facility] No Panel Informationon 03-04 Interpretation and review of laboratory results Abnormal [facility] PROTHROMBIN TIMEon INR Coag (PPP) [Relative time] 1.6 {INR} High 0.9-1.1 [facility] Comment on above: Result Comment: Vaughn mmended [...] Myocardial Infarction Performed By: #### L AB320 ####Assisted Living Home Director: DOMENICA JARA ([id number])[facility] ([facility])[address] [place] [address] PT Coag (PPP) [Time] 16.6 s High 9.0-12.0 [facility] Comment on above: Performed By: #### L AB320 ####Assisted Living Home Director: DOMENICA JARA ([phone])[facility] ([facility])[address] [place] [address] INR Coag (PPP) [Relative time] 1.5 {INR} High 0.9-1.1 [facility] Comment on above: Result Comment: Vaughn mmended [...] Myocardial Infarction Performed By: #### Tameka AB325, [id number] ####Assisted Living Home Director: DOMENICA JARA ([id number])[address] PT Coag (PPP) [Time] 15.5 s High 9.0-12.0 [facility] Comment on above: Performed By: #### Tameka AB325, [id number] ####Assisted Living Home Director: DOMENICA JARA ([id number])[address] PT Coag (Bld) [Time]on 03-04 INR Coag (PPP) [Relative time] 1.6 {INR} High 0.9 - 1.1 [facility] Interpretation and review of laboratory results Abnormal [facility] INR Coag (PPP) [Relative time] 1.5 {INR} High 0.9 - 1.1 [facility] Progress Noteon 03-04-2025 Progress Note Normal [facility] Progress Note Normal [facility] Progress Note Normal [facility] aPTT Coag (Bld) [Time]on aPTT Coag (PPP) [Time] 52.2 s High 20.0 - 30.5 s [facility] 30on 03-03-2025 30 Normal [facility] 30 Normal [facility] 30 Normal [facility] [id number] 03-03-2025 [id number] Normal [facility] APTTon 03-03-2025 aPTT Coag (Bld) [Time] 66.2 s High 20.0-30.5 [facility] Comment on above: Result Comment: ARPAN Kaplan COMMENTS:NOTE: The therapeutic time for Heparin anticoagulation, based on Xa activity inhibition, is an APTT of 46-80 seconds. Performed By: #### L AB325 ####Assisted Living Home Director: DOMENICA JARA ([phone])[facility])[address] [place] [address] aPTT Coag (Bld) [Time] 52.4 s High 20.0-30.5 [facility] Comment on above: Result Comment: ARPAN Kaplan COMMENTS:NOTE: The therapeutic time for Heparin anticoagulation, based on Xa activity inhibition, is an APTT of 46-80 seconds. Performed By: #### L AB325, [id number] ####Assisted Living Home Director: DOMENICA JARA ([phone])[facility])[address] [place] [address] BASIC METABOLIC PANELon 06-0 Anion gap [Moles/Vol] 10 mmol/L Normal 3-13 [facility] Comment on above: Performed By: #### L AB15 ####Assisted Living Home Director: DOMENICA JARA ([phone])[facility])[address] [place] [address] Calcium [Mass/Vol] 9.2 mg/dL Normal 8.4-10.2 [facility] Comment on above: Performed By: #### L AB15 ####Assisted Living Home Director: DOMENICA JARA ([phone])[facility])[address] [place] [address] Chloride [Moles/Vol] 100 mmol/L Normal 98-107 [facility] Comment on above: Performed By: #### L AB15 ####Assisted Living Home Director: DOMENICA JARA ([phone])[facility])[address] [place] [address] CO2 [Moles/Vol] 29 mmol/L Normal 22-29 [facility] Comment on above: Performed By: #### L AB15 ####Assisted Living Home Director: DOMENICA [phone])[facility] ([facility])[address] [place] [address] Creatinine [Mass/Vol] 1.92 mg/dL High 0.72-1.25 [facility] Comment on above: Performed By: #### L AB15 ####Assisted Living Home Director: DOMENICA JARA ([phone])[facility] ([facility])[address] [place] [address] [place] GLOMERULAR FILTRATION RATE ML/MIN/1.73 SQ M.PREDICTED 39.6 mL/min/1.73m*2 Low >60.0 [facility] Comment on above: Result Comment: Calc ulation based on the Chronic Kidney Disease Epidemiology Collaboration (CKD-EPI) equation refit without adjustment for race Performed By: #### L AB15 ####Assisted Living Home Director: DOMENICA JARA ([id number])[facility] ([facility])[address] [place] [address] [place] Glucose [Mass/Vol] 71 mg/dL Low 74-100 [facility] Comment on above: Performed By: #### L AB15 ####Assisted Living Home Director: DOMENICA JARA ([phone])[facility])[address] [place] [address] [place] Potassium [Moles/Vol] 4.8 mmol/L Normal 3.5-5.1 [facility] Comment on above: Result Comment: [facility] potassium values may be up to 0.5 mmol/L lower than serum values. Performed By: #### L AB15 ####Assisted Living Home Director: DOMENICA JARA ([phone])[facility] ([facility])[address] [place] [address] [place] Sodium [Moles/Vol] 139 mmol/L Normal 136-145 [facility] Comment on above: Performed By: #### L AB15 ####Assisted Living Home Director: DOMENICA JARA ([phone])[facility])[address] [place] [address] [place] Urea nitrogen [Mass/Vol] 14 mg/dL Normal 9-23 [facility] Comment on above: Performed By: #### L AB15 ####Assisted Living Home Director: DOMENICA JARA ([id number])[facility])[address] [place] [address] Anion gap [Moles/Vol] 11 mmol/L Normal 3-13 [facility] Comment on above: Performed By: #### L AB15 ####Assisted Living Home Director: DOMENICA JARA ([id number])[facility] ([facility])[address] [place] [address] Calcium [Mass/Vol] 9.8 mg/dL Normal 8.4-10.2 [facility] Comment on above: Performed By: #### L AB15 ####Assisted Living Home Director: DOMENICA JARA ([id number])[facility] ([facility])[address] [place] [address] Chloride [Moles/Vol] 101 mmol/L Normal 98-107 [facility] Comment on above: Performed By: #### L AB15 ####Assisted Living Home Director: DOMENICA JARA ([phone])[facility])[address] [place] [address] CO2 [Moles/Vol] 28 mmol/L Normal 22-29 [facility] Comment on above: Performed By: #### L AB15 ####Assisted Living Home Director: DOMENICA JARA ([id number])[facility] ([facility])[address] [place] [address] Creatinine [Mass/Vol] 3.21 mg/dL High 0.72-1.25 [facility] Comment on above: Performed By: #### L AB15 ####Assisted Living Home Director: DOMENICA JARA ([id number])[facility] ([facility])[address] [place] [address] [place] GLOMERULAR FILTRATION RATE ML/MIN/1.73 SQ M.PREDICTED 21.4 mL/min/1.73m*2 Low >60.0 [facility] Comment on above: Result Comment: Calc ulation based on the Chronic Kidney Disease Epidemiology Collaboration (CKD-EPI) equation refit without adjustment for race Performed By: #### L AB15 ####Assisted Living Home Director: DOMENICA JARA ([id number])[facility] ([facility])[address] [place] [address] Glucose [Mass/Vol] 93 mg/dL Normal 74-100 [facility] Comment on above: Performed By: #### L AB15 ####Assisted Living Home Director: DOMENICA JARA ([id number])[facility] ([facility])[address] [place] [address] Potassium [Moles/Vol] 6.2 mmol/L Critically high 3.5-5.1 [facility] Comment on above: Result Comment: [facility] potassium values may be up to 0.5 mmol/L lower than serum values. Performed By: #### L AB15 ####Assisted Living Home Director: DOMENICA JARA ([id number])[facility] ([facility])[address] [place] [address] Sodium [Moles/Vol] 140 mmol/L Normal 136-145 [facility] Comment on above: Performed By: #### L AB15 ####Assisted Living Home Director: DOMENICA JARA ([id number])[facility] ([facility])[address] [place] [address] [place] Urea nitrogen [Mass/Vol] 26 mg/dL High 9-23 [facility] Comment on above: Performed By: #### L AB15 ####Assisted Living Home Director: DOMENICA JARA ([id number])[facility] ([facility])[address] [place] [address] Basic metabolic 1998 panelOr dered By: Piedad Alvarado on 03-03-2025 Anion gap [Moles/Vol] 10 mmol/L 3 - 13 mmol/L [facility] Calcium [Mass/Vol] 9.2 mg/dL 8.4 - 10. 2 mg/dL [facility] Chloride [Moles/Vol] 100 mmol/L 98 - 10 7 mmol/L [facility] CO2 [Moles/Vol] 29 mmol/L 22 - 29 mmol/L [facility] Creatinine [Mass/Vol] 1.92 mg/dL High 0.72 - 1.25 mg/dL [facility] GFR/1.73 sq M.predicted (S/P/Bld) [Vol rate/Area] 39.6 mL/min Low - PINF [facility] Glucose [Mass/Vol] 71 mg/dL Low 74 - 100 mg/dL [facility] Interpretation and review of laboratory results Abnormal [facility] Potassium [Moles/Vol] 4.8 mmol/L 3.5 - 5.1 mmol/L [facility] Sodium [Moles/Vol] 139 mmol/L 136 - 145 mmol/L [facility] Urea nitrogen [Mass/Vol] 14 mg/dL 9 - 23 mg/d L [facility] Basic metabolic 1998 panelOr dered By: Jenni Romano on 03-03-2025 Anion gap [Moles/Vol] 11 mmol/L 3 - 13 mmol/L [facility] Calcium [Mass/Vol] 9.8 mg/dL 8.4 - 10. 2 mg/dL [facility] Chloride [Moles/Vol] 101 mmol/L 98 - 10 7 mmol/L [facility] CO2 [Moles/Vol] 28 mmol/L 22 - 29 mmol/L [facility] Creatinine [Mass/Vol] 3.21 mg/dL High 0.72 - 1.25 mg/dL [facility] GFR/1.73 sq M.predicted (S/P/Bld) [Vol rate/Area] 21.4 mL/min Low - PINF [facility] Glucose [Mass/Vol] 93 mg/dL 74 - 100 mg/dL [facility] Interpretation and review of laboratory results Abnormal [facility] Potassium [Moles/Vol] 6.2 mmol/L Critically high 3.5 - 5.1 mmol/L [facility] Sodium [Moles/Vol] 140 mmol/L 136 - 145 mmol/L [facility] Urea nitrogen [Mass/Vol] 26 mg/dL High 9 - 23 mg/d L [facility] CBC (HEMOGRAM)on 03-03-2025 Erythrocyte distribution width (RBC) [Ratio] 20.9 % High 11.5-15.0 [facility] Comment on above: Performed By: #### L [id number] ####Assisted Living Home Director: DOMENICA JARA ([id number])[facility] ([address] Hematocrit (Bld) [Volume fraction] 27.8 % Low 40.0-52.0 [facility] Comment on above: Performed By: #### L AB294 ####Assisted Living Home Director: DOMENICA JARA ([id number])[facility])[address] [place] [address] Hemoglobin (Bld) [Mass/Vol] 8.3 g/dL Low 13.0-18.0 [facility] Comment on above: Performed By: #### L AB294 ####Assisted Living Home Director: DOMENICA JARA ([id number])[facility] ([facility])[address] [place] [address] IPF 2 Normal [facility] Comment on above: Performed By: #### L AB294 ####Assisted Living Home Director: DOMENICA JARA ([phone])[facility])[address] [place] [address] MCH (RBC) [Entitic mass] 29.5 pg Normal 26.0-34.0 [facility] Comment on above: Performed By: #### L AB294 ####Assisted Living Home Director: DOMENICA JARA ([id number])[facility] ([facility])[address] [place] [address] MCHC 29.9 % Low 30.5-36.0 [facility] Comment on above: Performed By: #### L AB294 ####Assisted Living Home Director: DOMENICA JARA ([id number])[facility])[address] [place] [address] MCV (RBC) [Entitic vol] 98.9 fL Normal 77.0-99.0 [facility] Comment on above: Performed By: #### L AB294 ####Assisted Living Home Director: DOMENICA JARA ([id number])[facility])[address] [place] [address] Platelet mean volume (Bld) [Entitic vol] 9.1 fL Normal 9.0-12.7 [facility] Comment on above: Performed By: #### L AB294 ####Assisted Living Home Director: DOMENICA JARA ([id number])[facility] ([facility] Platelets (Bld) [#/Vol] 397 10*3/uL Normal 140-440 [facility] Comment on above: Performed By: #### L AB294 ####Assisted Living Home Director: DOMENICA JARA ([id number])[facility])[address] [place] [address] RBC (Bld) [#/Vol] 2.81 10*6/uL Low 4.40-5.90 [facility] Comment on above: Performed By: #### L AB294 ####Assisted Living Home Director: DOMENICA JARA ([id number])[facility])[address] [place] [address] WBC (Bld) [#/Vol] 8.9 10*3/uL Normal 3.6-10.7 [facility] Comment on above: Performed By: #### L AB294 ####Assisted Living Home Director: DOMENICA JARA ([id number])[facility])[address] [place] [address] CBC panel Auto (Bld)Ordered By: Anu Graham on 03-03-2025 Erythrocyte distribution width (RBC) [Ratio] 20.9 % High 11.5 - 15.0 % [facility] Hematocrit (Bld) [Volume fraction] 27.8 % Low 40.0 - 52.0 % [facility] Hemoglobin (Bld) [Mass/Vol] 8.3 g/dL Low 13.0 - 18.0 g/dL [facility] Interpretation and review of laboratory results Abnormal [facility] IPF 2 [facility] MCH (RBC) [Entitic mass] 29.5 pg 26. 0 - 34.0 pg [facility] MCHC (RBC) [Mass/Vol] 29.9 % Low 30.5 - 36.0 % [facility] MCV (RBC) [Entitic vol] 98.9 fL 77.0 - 99.0 fL [facility] Platelet mean volume (Bld) [Entitic vol] 9.1 fL 9.0 - 12.7 fL [facility] Platelets (Bld) [#/Vol] 397 10*3/uL 140 - 440 10*3/uL [facility] RBC (Bld) [#/Vol] 2.81 10*6/uL Low 4.40 - 5.9 0 10*6/uL [facility] WBC (Bld) [#/Vol] 8.9 10*3/uL 3.6 - 10.7 10*3/uL [facility] Laboratory - Coagulationon 0 03-03-2025 PT Coag (Bld) [Time] 16.2 s High 9.0 - 12.0 s [facility] No Panel Informationon 03-03 Interpretation and review of laboratory results Abnormal [facility] Nursing Noteon 03-03-2025 Nursing Note Normal [facility] Nursing Note In patient's chart, d/t patient being on his call light excessively and finally telling me he wants something for pain. Please see eMAR for administration Normal [facility] PROTHROMBIN TIMEon INR Coag (PPP) [Relative time] 1.6 {INR} High 0.9-1.1 [facility] Comment on above: Result Comment: Vaughn mmended [...] Myocardial Infarction Performed By: #### Tameka AB325, [id number] ####Assisted Living Home Director: DOMENICA JARA ([phone])[address] PT Coag (PPP) [Time] 16.2 s High 9.0-12.0 [facility] Comment on above: Performed By: #### L AB325, [id number] ####Assisted Living Home Director: DOMENICA JARA ([phone])[facility])[address] [place] [address] PT Coag (Bld) [Time]on 03-03 INR Coag (PPP) [Relative time] 1.6 {INR} High 0.9 - 1.1 [facility] Progress Noteon 03-03-2025 Progress Note Normal [facility] Progress Note Normal [facility] Progress Note Normal [facility] aPTT Coag (Bld) [Time]on aPTT Coag (PPP) [Time] 66.2 s High 20.0 - 30.5 s [facility] Interpretation and review of laboratory results Abnormal [facility] aPTT Coag (PPP) [Time] 52.4 s High 20.0 - 30.5 s [facility] 30on 03-02-2025 30 Switch to augmentin 500mg q24 (to be taken after HD on HD days) until 03/10/25. Team aware of discharge plan Waiting for INR to be in therapeutic range ID will sign off Please re consult if needed Hussain Quintana MD 03/02/2025 12:43 PM Normal [facility] 30 Normal [facility] [id number] 03-02-2025 [id number] Normal [facility] APTTon 03-02-2025 aPTT Coag (Bld) [Time] 68.9 s High 20.0-30.5 [facility] Comment on above: Result Comment: ARPAN Kaplan COMMENTS:NOTE: The therapeutic time for Heparin anticoagulation, based on Xa activity inhibition, is an APTT of 46-80 seconds. Performed By: #### L AB325 ####Assisted Living Home Director: DOMENICA JARA ([phone])[address] aPTT Coag (Bld) [Time] 44.7 s High 20.0-30.5 [facility] Comment on above: Result Comment: ARPAN Kaplan COMMENTS:NOTE: The therapeutic time for Heparin anticoagulation, based on Xa activity inhibition, is an APTT of 46-80 seconds. Performed By: #### L AB325 ####Assisted Living Home Director: DOMENICA JARA ([phone])[facility] ([facility])[address] [place] [address] aPTT Coag (Bld) [Time] 56.5 s High 20.0-30.5 [facility] Comment on above: Result Comment: ARPAN Kaplan COMMENTS:NOTE: The therapeutic time for Heparin anticoagulation, based on Xa activity inhibition, is an APTT of 46-80 seconds. Performed By: #### L AB325 ####Assisted Living Home Director: DOMENICA JARA ([id number])[facility] ([facility])[address] [place] [address] aPTT Coag (Bld) [Time] 44.7 s High 20.0-30.5 [facility] Comment on above: Result Comment: ARPAN Kaplan COMMENTS:NOTE: The therapeutic time for Heparin anticoagulation, based on Xa activity inhibition, is an APTT of 46-80 seconds. Performed By: #### L AB320, [id number] ####Assisted Living Home Director: DOMENICA JARA ([id number])[facility] ([facility])[address] [place] [address] BASIC METABOLIC PANELon 06-0 Anion gap [Moles/Vol] 11 mmol/L Normal 3-13 [facility] Comment on above: Performed By: #### L AB15 ####Assisted Living Home Director: DOMENICA JARA ([phone])[facility] ([facility])[address] [place] [address] Calcium [Mass/Vol] 9.2 mg/dL Normal 8.4-10.2 [facility] Comment on above: Performed By: #### L AB15 ####Assisted Living Home Director: DOMENICA JARA ([id number])[facility] ([facility])[address] [place] [address] Chloride [Moles/Vol] 102 mmol/L Normal 98-107 [facility] Comment on above: Performed By: #### L AB15 ####Assisted Living Home Director: DOMENICA JARA ([phone])[facility] ([facility])[address] [place] [address] CO2 [Moles/Vol] 26 mmol/L Normal 22-29 [facility] Comment on above: Performed By: #### L AB15 ####Assisted Living Home Director: DOMENICA [id number])[facility] ([facility])[address] [place] [address] [place] Creatinine [Mass/Vol] 2.53 mg/dL High 0.72-1.25 [facility] Comment on above: Performed By: #### L AB15 ####Assisted Living Home Director: DOMENICA JARA ([phone])[facility])[address] [place] [address] [place] GLOMERULAR FILTRATION RATE ML/MIN/1.73 SQ M.PREDICTED 28.5 mL/min/1.73m*2 Low >60.0 [facility] Comment on above: Result Comment: Calc ulation based on the Chronic Kidney Disease Epidemiology Collaboration (CKD-EPI) equation refit without adjustment for race Performed By: #### L AB15 ####Assisted Living Home Director: DOMENICA JARA ([phone])[facility])[address] [place] [address] Glucose [Mass/Vol] 107 mg/dL High 74-100 [facility] Comment on above: Performed By: #### L AB15 ####Assisted Living Home Director: DOMENICA JARA ([phone])[facility])[address] [place] [address] [place] Potassium [Moles/Vol] 4.6 mmol/L Normal 3.5-5.1 [facility] Comment on above: Result Comment: [facility] potassium values may be up to 0.5 mmol/L lower than serum values. Performed By: #### L AB15 ####Assisted Living Home Director: DOMENICA AJRA ([phone])[facility] ([facility])[address] [place] [address] [place] Sodium [Moles/Vol] 139 mmol/L Normal 136-145 [facility] Comment on above: Performed By: #### L AB15 ####Assisted Living Home Director: DOMENICA JARA ([id number])[facility])[address] [place] [address] [place] Urea nitrogen [Mass/Vol] 16 mg/dL Normal 9-23 [facility] Comment on above: Performed By: #### L AB15 ####Assisted Living Home Director: DOMENICA [phone])[facility] ([facility])[address] [place] [address] Basic metabolic 1998 panelon 03-02-2025 Anion gap [Moles/Vol] 11 mmol/L 3 - 13 mmol/L [facility] Calcium [Mass/Vol] 9.2 mg/dL 8.4 - 10. 2 mg/dL [facility] Chloride [Moles/Vol] 102 mmol/L 98 - 10 7 mmol/L [facility] CO2 [Moles/Vol] 26 mmol/L 22 - 29 mmol/L [facility] Creatinine [Mass/Vol] 2.53 mg/dL High 0.72 - 1.25 mg/dL [facility] GFR/1.73 sq M.predicted (S/P/Bld) [Vol rate/Area] 28.5 mL/min Low - PINF [facility] Glucose [Mass/Vol] 107 mg/dL High 74 - 100 mg/dL [facility] Interpretation and review of laboratory results Abnormal [facility] Potassium [Moles/Vol] 4.6 mmol/L 3.5 - 5.1 mmol/L [facility] Sodium [Moles/Vol] 139 mmol/L 136 - 145 mmol/L [facility] Urea nitrogen [Mass/Vol] 16 mg/dL 9 - 23 mg/d L [facility] CBC (HEMOGRAM)on 03-02-2025 Erythrocyte distribution width (RBC) [Ratio] 20.1 % High 11.5-15.0 [facility] Comment on above: Performed By: #### L AB294 ####Assisted Living Home Director: DOMENICA JARA ([phone])[facility] ([facility])[address] [place] [address] Hematocrit (Bld) [Volume fraction] 25.4 % Low 40.0-52.0 [facility] Comment on above: Performed By: #### L AB294 ####Assisted Living Home Director: DOMENICA JARA ([phone])[facility])[address] [place] [address] Hemoglobin (Bld) [Mass/Vol] 7.7 g/dL Low 13.0-18.0 [facility] Comment on above: Performed By: #### L AB294 ####Assisted Living Home Director: DOMENICA JARA ([id number])[facility] ([facility])[address] [place] [address] IPF 2 Normal [facility] Comment on above: Performed By: #### L AB294 ####Assisted Living Home Director: DOMENICA JARA ([phone])[facility] ([facility])[address] [place] [address] MCH (RBC) [Entitic mass] 29.7 pg Normal 26.0-34.0 [facility] Comment on above: Performed By: #### L AB294 ####Assisted Living Home Director: DOMENICA JARA ([phone])[facility])[address] [place] [address] MCHC 30.3 % Low 30.5-36.0 [facility] Comment on above: Performed By: #### L AB294 ####Assisted Living Home Director: DOMENICA JARA ([id number])[facility] ([facility])[address] [place] [address] MCV (RBC) [Entitic vol] 98.1 fL Normal 77.0-99.0 [facility] Comment on above: Performed By: #### L AB294 ####Assisted Living Home Director: DOMENICA JARA ([id number])[facility] ([facility])[address] [place] [address] Platelet mean volume (Bld) [Entitic vol] 9.0 fL Normal 9.0-12.7 [facility] Comment on above: Performed By: #### L AB294 ####Assisted Living Home Director: DOMENICA JARA ([id number])[facility] ([facility])[address] [place] [address] Platelets (Bld) [#/Vol] 354 10*3/uL Normal 140-440 [facility] Comment on above: Performed By: #### L AB294 ####Assisted Living Home Director: DOMENICA JARA ([id number])[facility])[address] [place] [address] RBC (Bld) [#/Vol] 2.59 10*6/uL Low 4.40-5.90 [facility] Comment on above: Performed By: #### L AB294 ####Assisted Living Home Director: DOMENICA JARA ([id number])[facility] ([facility])[address] [place] [address] WBC (Bld) [#/Vol] 7.4 10*3/uL Normal 3.6-10.7 [facility] Comment on above: Performed By: #### L AB294 ####Assisted Living Home Director: DOMENICA JARA ([id number])[facility] ([facility])[address] [place] [address] CBC panel Auto (Bld)Ordered By: Callie Steele on 03-02-2025 Erythrocyte distribution width (RBC) [Ratio] 20.1 % High 11.5 - 15.0 % [facility] Hematocrit (Bld) [Volume fraction] 25.4 % Low 40.0 - 52.0 % [facility] Hemoglobin (Bld) [Mass/Vol] 7.7 g/dL Low 13.0 - 18.0 g/dL [facility] Interpretation and review of laboratory results Abnormal [facility] IPF 2 [facility] MCH (RBC) [Entitic mass] 29.7 pg 26. 0 - 34.0 pg [facility] MCHC (RBC) [Mass/Vol] 30.3 % Low 30.5 - 36.0 % [facility] MCV (RBC) [Entitic vol] 98.1 fL 77.0 - 99.0 fL [facility] Platelet mean volume (Bld) [Entitic vol] 9 fL 9.0 - 12.7 fL [facility] Platelets (Bld) [#/Vol] 354 10*3/uL 140 - 440 10*3/uL [facility] RBC (Bld) [#/Vol] 2.59 10*6/uL Low 4.40 - 5.9 0 10*6/uL [facility] WBC (Bld) [#/Vol] 7.4 10*3/uL 3.6 - 10.7 10*3/uL [facility] Laboratory - Coagulationon 0 03-02-2025 PT Coag (Bld) [Time] 14.7 s High 9.0 - 12.0 s [facility] No Panel Informationon 03-02 Interpretation and review of laboratory results Abnormal [facility] PROTHROMBIN TIMEon INR Coag (PPP) [Relative time] 1.4 {INR} High 0.9-1.1 [facility] Comment on above: Result Comment: Vaughn mmended [...] Myocardial Infarction Performed By: #### Tameka [id number], [id number] ####Assisted Living Home Director: DOMENICA JARA ([phone])[facility])[address] [place] [address] PT Coag (PPP) [Time] 14.7 s High 9.0-12.0 [facility] Comment on above: Performed By: #### Tameka AB320, [id number] ####Assisted Living Home Director: DOMENICA JARA ([id number])[facility])[address] [place] [address] PT Coag (Bld) [Time]on 03-02 INR Coag (PPP) [Relative time] 1.4 {INR} High 0.9 - 1.1 [facility] Progress Noteon 03-02-2025 [facility] Progress Note Normal [facility] aPTT Coag (Bld) [Time]on aPTT Coag (PPP) [Time] 68.9 s High 20.0 - 30.5 s [facility] Interpretation and review of laboratory results Abnormal [facility] aPTT Coag (PPP) [Time] 44.7 s High 20.0 - 30.5 s [facility] Interpretation and review of laboratory results Abnormal [facility] aPTT Coag (PPP) [Time] 56.5 s High 20.0 - 30.5 s [facility] Interpretation and review of laboratory results Abnormal [facility] aPTT Coag (PPP) [Time] 44.7 s High 20.0 - 30.5 s [facility] 30on 03-01-2025 30 Normal [facility] [id number] 03-01-2025 [id number] Discharge med list and updated notes transmitted to [facility] via [facility] per TCC request. Normal [facility] [id number] Normal [facility] APTTon 03-01-2025 aPTT Coag (Bld) [Time] 51.3 s High 20.0-30.5 [facility] Comment on above: Result Comment: ARPAN Kaplan COMMENTS:NOTE: The therapeutic time for Heparin anticoagulation, based on Xa activity inhibition, is an APTT of 46-80 seconds. Performed By: #### L AB320, [id number] ####Assisted Living Home Director: DOMENICA JARA ([id number])[facility])[address] [place] [address] BASIC METABOLIC PANELon 060 Anion gap [Moles/Vol] 13 mmol/L Normal 3-13 [facility] Comment on above: Performed By: #### L AB15 ####Assisted Living Home Director: DOMENICA JARA ([id number])[facility] ([facility])[address] [place] [address] [place] Calcium [Mass/Vol] 9.6 mg/dL Normal 8.4-10.2 [facility] Comment on above: Performed By: #### L AB15 ####Assisted Living Home Director: DOMENICA JARA ([phone])[facility])[address] [place] [address] [place] Chloride [Moles/Vol] 102 mmol/L Normal 98-107 [facility] Comment on above: Performed By: #### L AB15 ####Assisted Living Home Director: ODMENICA JARA ([id number])[facility] ([facility])[address] [place] [address] CO2 [Moles/Vol] 23 mmol/L Normal 22-29 [facility] Comment on above: Performed By: #### L AB15 ####Assisted Living Home Director: DOMENICA JARA ([phone])[facility] ([facility])[address] [place] [address] Creatinine [Mass/Vol] 3.73 mg/dL High 0.72-1.25 [facility] Comment on above: Performed By: #### L AB15 ####Assisted Living Home Director: DOMENICA JARA ([phone])[facility])[address] [place] [address] GLOMERULAR FILTRATION RATE ML/MIN/1.73 SQ M.PREDICTED 17.9 mL/min/1.73m*2 Low >60.0 [facility] Comment on above: Result Comment: Calc ulation based on the Chronic Kidney Disease Epidemiology Collaboration (CKD-EPI) equation refit without adjustment for race Performed By: #### L AB15 ####Assisted Living Home Director: DOMENICA JARA ([id number])[facility] ([facility])[address] [place] [address] Glucose [Mass/Vol] 87 mg/dL Normal 74-100 [facility] Comment on above: Performed By: #### L AB15 ####Assisted Living Home Director: DOMENICA JARA ([phone])[facility])[address] [place] [address] Potassium [Moles/Vol] 5.8 mmol/L High 3.5-5.1 [facility] Comment on above: Result Comment: [facility] potassium values may be up to 0.5 mmol/L lower than serum values. Performed By: #### L AB15 ####Assisted Living Home Director: DOMENICA JARA ([id number])[facility])[address] [place] [address] Sodium [Moles/Vol] 138 mmol/L Normal 136-145 [facility] Comment on above: Performed By: #### L AB15 ####Assisted Living Home Director: DOMENICA JARA ([id number])[facility] ([facility])[address] [place] [address] Urea nitrogen [Mass/Vol] 28 mg/dL High 9-23 [facility] Comment on above: Performed By: #### L AB15 ####Assisted Living Home Director: DOMENICA JARA ([id number])[facility] ([facility])[address] [place] [address] Basic metabolic 1998 panelon 03-01-2025 Anion gap [Moles/Vol] 13 mmol/L 3 - 13 mmol/L [facility] Calcium [Mass/Vol] 9.6 mg/dL 8.4 - 10. 2 mg/dL [facility] Chloride [Moles/Vol] 102 mmol/L 98 - 10 7 mmol/L [facility] CO2 [Moles/Vol] 23 mmol/L 22 - 29 mmol/L [facility] Creatinine [Mass/Vol] 3.73 mg/dL High 0.72 - 1.25 mg/dL [facility] GFR/1.73 sq M.predicted (S/P/Bld) [Vol rate/Area] 17.9 mL/min Low - PINF [facility] Glucose [Mass/Vol] 87 mg/dL 74 - 100 mg/dL [facility] Interpretation and review of laboratory results Abnormal [facility] Potassium [Moles/Vol] 5.8 mmol/L High 3.5 - 5.1 mmol/L [facility] Sodium [Moles/Vol] 138 mmol/L 136 - 145 mmol/L [facility] Urea nitrogen [Mass/Vol] 28 mg/dL High 9 - 23 mg/d L [facility] CBC (HEMOGRAM)on 03-01-2025 Erythrocyte distribution width (RBC) [Ratio] 19.7 % High 11.5-15.0 [facility] Comment on above: Performed By: #### L [id number] ####Assisted Living Home Director: DOMENICA JARA ([id number])[facility] ([facility])[address] [place] [address] Hematocrit (Bld) [Volume fraction] 26.9 % Low 40.0-52.0 [facility] Comment on above: Performed By: #### L AB294 ####Assisted Living Home Director: DOMENICA JARA ([id number])[facility] ([facility])[address] [place] [address] Hemoglobin (Bld) [Mass/Vol] 8.0 g/dL Low 13.0-18.0 [facility] Comment on above: Performed By: #### L AB294 ####Assisted Living Home Director: DOMENICA JARA ([id number])[facility] ([facility])[address] [place] [address] MCH (RBC) [Entitic mass] 28.8 pg Normal 26.0-34.0 [facility] Comment on above: Performed By: #### L AB294 ####Assisted Living Home Director: DOMENICA JARA ([phone])[facility])[address] [place] [address] MCHC 29.7 % Low 30.5-36.0 [facility] Comment on above: Performed By: #### L AB294 ####Assisted Living Home Director: DOMENICA JARA ([id number])[facility] ([facility])[address] [place] [address] MCV (RBC) [Entitic vol] 96.8 fL Normal 77.0-99.0 [facility] Comment on above: Performed By: #### L AB294 ####Assisted Living Home Director: DOMENICA JARA ([phone])[facility])[address] [place] [address] Platelet mean volume (Bld) [Entitic vol] 8.7 fL Low 9.0-12.7 [facility] Comment on above: Performed By: #### L AB294 ####Assisted Living Home Director: DOMENICA JARA ([id number])[facility])[address] [place] [address] Platelets (Bld) [#/Vol] 306 10*3/uL Normal 140-440 [facility] Comment on above: Performed By: #### L AB294 ####Assisted Living Home Director: DOMENICA JARA ([id number])[facility])[address] [place] [address] RBC (Bld) [#/Vol] 2.78 10*6/uL Low 4.40-5.90 [facility] Comment on above: Performed By: #### L AB294 ####Assisted Living Home Director: DOMENICA JARA ([id number])[facility] ([facility])[address] [place] [address] WBC (Bld) [#/Vol] 7.5 10*3/uL Normal 3.6-10.7 [facility] Comment on above: Performed By: #### L AB294 ####Assisted Living Home Director: DOMENICA JARA ([phone])[facility] ([facility])[address] [place] [address] CBC panel Auto (Bld)on 03-01 Erythrocyte distribution width (RBC) [Ratio] 19.7 % High 11.5 - 15.0 % [facility] Hematocrit (Bld) [Volume fraction] 26.9 % Low 40.0 - 52.0 % [facility] Hemoglobin (Bld) [Mass/Vol] 8 g/dL Low 13.0 - 18.0 g/dL [facility] Interpretation and review of laboratory results Abnormal [facility] MCH (RBC) [Entitic mass] 28.8 pg 26. 0 - 34.0 pg [facility] MCHC (RBC) [Mass/Vol] 29.7 % Low 30.5 - 36.0 % [facility] MCV (RBC) [Entitic vol] 96.8 fL 77.0 - 99.0 fL [facility] Platelet mean volume (Bld) [Entitic vol] 8.7 fL Low 9.0 - 12.7 fL [facility] Platelets (Bld) [#/Vol] 306 10*3/uL 140 - 440 10*3/uL [facility] RBC (Bld) [#/Vol] 2.78 10*6/uL Low 4.40 - 5.9 0 10*6/uL [facility] WBC (Bld) [#/Vol] 7.5 10*3/uL 3.6 - 10.7 10*3/uL [facility] Laboratory - Coagulationon 0 6-05-2025 PT Coag (Bld) [Time] 14.3 s High 9.0 - 12.0 s [facility] No Panel Informationon 03-01 Interpretation and review of laboratory results Abnormal [facility] Nursing Noteon 03-01-2025 Nursing Note Normal [facility] PROTHROMBIN TIMEon INR Coag (PPP) [Relative time] 1.4 {INR} High 0.9-1.1 [facility] Comment on above: Result Comment: Vaughn mmended [...] Myocardial Infarction Performed By: #### Tameka AB320, [id number] ####Assisted Living Home Director: DOMENICA JARA ([id number])[facility] ([facility])[address] [place] [address] PT Coag (PPP) [Time] 14.3 s High 9.0-12.0 [facility] Comment on above: Performed By: #### Tameka AB320, [id number] ####Assisted Living Home Director: DOMENICA JARA ([phone])[facility])[address] [place] [address] PT Coag (Bld) [Time]on 03-01 INR Coag (PPP) [Relative time] 1.4 {INR} High 0.9 - 1.1 [facility] Progress Noteon 03-01-2025 Progress Note Normal [facility] Progress [facility] Progress Note [facility] Progress [facility] Progress Note PHYSICAL THERAPY [facility] Name/MRN: Jair Snyder ([id number]) Date: 03/01/2025 Leaving for dialysis. Return later time/date for PT. Merlene León, QUALITY ASSURANCE CALIBRATOR Normal [facility] Progress Note Normal [facility] aPTT Coag (Bld) [Time]on aPTT Coag (PPP) [Time] 51.3 s High 20.0 - 30.5 s [facility] 30on 02-28-2025 30 Normal [facility] 30 Normal [facility] [id number] 02-28-2025 [id number] Auth is back however can not discharge still on hep gtt- auth good thru 03/02- hoping by Wednesday AM . Updated snf . [facility] [phone] Transport requested in [employer] in will call per TCC. 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 Performed By: #### L AB325, [id number] ####Assisted Living Home Director: DOMENICA JARA ([id number])[facility] ([address] BASIC METABOLIC PANELon Anion gap [Moles/Vol] 11 mmol/L Normal 3-13 [facility] Comment on above: Performed By: #### L AB15 ####Assisted Living Home Director: DOMENICA JARA ([id number])[facility] ([facility])[address] [place] [address] Calcium [Mass/Vol] 9.3 mg/dL Normal 8.4-10.2 [facility] Comment on above: Performed By: #### L AB15 ####Assisted Living Home Director: DOMENICA JARA ([phone])[facility])[address] [place] [address] Chloride [Moles/Vol] 100 mmol/L Normal 98-107 [facility] Comment on above: Performed By: #### L AB15 ####Assisted Living Home Director: DOMENICA JARA ([phone])[facility] ([facility])[address] [place] [address] CO2 [Moles/Vol] 27 mmol/L Normal 22-29 [facility] Comment on above: Performed By: #### L AB15 ####Assisted Living Home Director: DOMENICA JARA ([id number])[facility] ([facility])[address] [place] [address] Creatinine [Mass/Vol] 3.06 mg/dL High 0.72-1.25 [facility] Comment on above: Performed By: #### L AB15 ####Assisted Living Home Director: DOMENICA JARA ([id number])[facility] ([facility])[address] [place] [address] GLOMERULAR FILTRATION RATE ML/MIN/1.73 SQ M.PREDICTED 22.7 mL/min/1.73m*2 Low >60.0 [facility] Comment on above: Result Comment: Calc ulation based on the Chronic Kidney Disease Epidemiology Collaboration (CKD-EPI) equation refit without adjustment for race Performed By: #### L AB15 ####Assisted Living Home Director: DOMENICA JARA ([phone])[facility] ([facility])[address] [place] [address] Glucose [Mass/Vol] 94 mg/dL Normal 74-100 [facility] Comment on above: Performed By: #### L AB15 ####Assisted Living Home Director: DOMENICA JARA ([phone])[facility] ([facility])[address] [place] [address] Potassium [Moles/Vol] 5.0 mmol/L Normal 3.5-5.1 [facility] Comment on above: Result Comment: [facility] potassium values may be up to 0.5 mmol/L lower than serum values. Performed By: #### L AB15 ####Assisted Living Home Director: DOMENICA JARA ([phone])[facility])[address] [place] [address] Sodium [Moles/Vol] 138 mmol/L Normal 136-145 [facility] Comment on above: Performed By: #### L AB15 ####Assisted Living Home Director: DOMENICA JARA ([phone])[facility] ([facility])[address] [place] [address] Urea nitrogen [Mass/Vol] 19 mg/dL Normal 9-23 [facility] Comment on above: Performed By: #### L AB15 ####Assisted Living Home Director: DOMENICA JARA ([phone])[facility])[address] [place] [address] Basic metabolic 1998 panelon 02-28-2025 Anion gap [Moles/Vol] 11 mmol/L 3 - 13 mmol/L [facility] Calcium [Mass/Vol] 9.3 mg/dL 8.4 - 10. 2 mg/dL [facility] Chloride [Moles/Vol] 100 mmol/L 98 - 10 7 mmol/L [facility] CO2 [Moles/Vol] 27 mmol/L 22 - 29 mmol/L [facility] Creatinine [Mass/Vol] 3.06 mg/dL High 0.72 - 1.25 mg/dL [facility] GFR/1.73 sq M.predicted (S/P/Bld) [Vol rate/Area] 22.7 mL/min Low - PINF [facility] Glucose [Mass/Vol] 94 mg/dL 74 - 100 mg/dL [facility] Interpretation and review of laboratory results Abnormal [facility] Potassium [Moles/Vol] 5 mmol/L 3.5 - 5.1 mmol/L [facility] Sodium [Moles/Vol] 138 mmol/L 136 - 145 mmol/L [facility] Urea nitrogen [Mass/Vol] 19 mg/dL 9 - 23 mg/d L [facility] CBC (HEMOGRAM)on 02-28-2025 Erythrocyte distribution width (RBC) [Ratio] 19.8 % High 11.5-15.0 [facility] Comment on above: Performed By: #### L [id number] ####Assisted Living Home Director: DOMENICA JARA ([id number])[facility])[address] [place] [address] Hematocrit (Bld) [Volume fraction] 26.9 % Low 40.0-52.0 [facility] Comment on above: Performed By: #### L [id number] ####Assisted Living Home Director: DOMENICA JARA ([phone])[facility])[address] [place] [address] Hemoglobin (Bld) [Mass/Vol] 8.2 g/dL Low 13.0-18.0 [facility] Comment on above: Performed By: #### L [id number] ####Assisted Living Home Director: DOMENICA JARA ([phone])[facility])[address] [place] [address] MCH (RBC) [Entitic mass] 29.3 pg Normal 26.0-34.0 [facility] Comment on above: Performed By: #### L [id number] ####Assisted Living Home Director: DOMENICA JARA ([id number])[facility])[address] [place] [address] MCHC 30.5 % Normal 30.5-36.0 [facility] Comment on above: Performed By: #### L [id number] ####Assisted Living Home Director: DOMENICA JARA ([id number])[facility] ([facility])[address] [place] [address] MCV (RBC) [Entitic vol] 96.1 fL Normal 77.0-99.0 S [facility] Comment on above: Performed By: #### L [id number] ####Assisted Living Home Director: DOMENICA JARA ([id number])[facility])[address] [place] [address] Platelet mean volume (Bld) [Entitic vol] 9.0 fL Normal 9.0-12.7 [facility] Comment on above: Performed By: #### L [id number] ####Assisted Living Home Director: DOMENICA JARA ([id number])[facility])[address] [place] [address] Platelets (Bld) [#/Vol] 324 10*3/uL Normal 140-440 [facility] Comment on above: Performed By: #### L [id number] ####Assisted Living Home Director: DOMENICA JARA ([id number])[address] RBC (Bld) [#/Vol] 2.80 10*6/uL Low 4.40-5.90 [facility] Comment on above: Performed By: #### L [id number] ####Assisted Living Home Director: DOMENICA JARA ([id number])[facility])[address] [place] [address] WBC (Bld) [#/Vol] 8.0 10*3/uL Normal 3.6-10.7 [facility] Comment on above: Performed By: #### L [id number] ####Assisted Living Home Director: DOMENICA JARA ([id number])[address] CBC panel Auto (Bld)Ordered By: Giancarlo Lakhani on 02-28-2025 Erythrocyte distribution width (RBC) [Ratio] 19.8 % High 11.5 - 15.0 % [facility] Hematocrit (Bld) [Volume fraction] 26.9 % Low 40.0 - 52.0 % [facility] Hemoglobin (Bld) [Mass/Vol] 8.2 g/dL Low 13.0 - 18.0 g/dL [facility] Interpretation and review of laboratory results Abnormal [facility] MCH (RBC) [Entitic mass] 29.3 pg 26. 0 - 34.0 pg [facility] MCHC (RBC) [Mass/Vol] 30.5 % 30.5 - 36.0 % [facility] MCV (RBC) [Entitic vol] 96.1 fL 77.0 - 99.0 fL [facility] [employer] Platelet mean volume (Bld) [Entitic vol] 9 fL 9.0 - 12.7 fL [facility] Platelets (Bld) [#/Vol] 324 10*3/uL 140 - 440 10*3/uL [facility] RBC (Bld) [#/Vol] 2.8 10*6/uL Low 4.40 - 5.9 0 10*6/uL [facility] WBC (Bld) [#/Vol] 8 10*3/uL 3.6 - 10.7 10*3/uL [facility] Laboratory - Coagulationon 0 02-28-2025 PT Coag (Bld) [Time] 14 s High 9.0 - 12.0 s [facility] No Panel Informationon 02-28 Interpretation and review of laboratory results Abnormal [facility] Nursing Noteon 02-28-2025 Nursing Note Normal [facility] PROTHROMBIN TIMEon INR Coag (PPP) [Relative time] 1.3 {INR} High 0.9-1.1 [facility] Comment on above: Result Comment: Vaughn mmended [...] Myocardial Infarction Performed By: #### Tameka AB325, [id number] ####Assisted Living Home Director: DOMENICA JARA ([phone])[address] PT Coag (PPP) [Time] 14.0 s High 9.0-12.0 [facility] Comment on above: Performed By: #### Tameka AB325, [id number] ####Assisted Living Home Director: DOMENICA JARA ([phone])[address] PT Coag (Bld) [Time]on 02-28 INR Coag (PPP) [Relative time] 1.3 {INR} High 0.9 - 1.1 [facility] Progress Noteon 02-28-2025 Progress Note Normal [facility] Progress [facility] Normal [facility] Progress Note Normal [facility] Progress Note Normal [facility] aPTT Coag (Bld) [Time]on aPTT Coag (PPP) [Time] 47.7 s High 20.0 - 30.5 s [facility] 30on 02-27-2025 30 Normal [facility] 30 Normal [facility] [id number] 02-27-2025 [id number] Normal [facility] APTTon 02-27-2025 aPTT Coag (Bld) [Time] 55.6 s High 20.0-30.5 [facility] Comment on above: Result Comment: ARPAN Kaplan COMMENTS:NOTE: The therapeutic time for Heparin anticoagulation, based on Xa activity inhibition, is an APTT of 46-80 seconds. Performed By: #### L [id number], [id number] ####Assisted Living Home Director: DOMENICA JARA ([phone])[facility])[address] [place] [address] Bacteria identified Cx Nom ( Bld)on 02-27-2025 Interpretation and review of laboratory results Normal [facility] Interpretation and review of laboratory results Normal [facility] CBC (HEMOGRAM)on 02-27-2025 Erythrocyte distribution width (RBC) [Ratio] 19.5 % High 11.5-15.0 [facility] Comment on above: Performed By: #### L [id number] ####Assisted Living Home Director: DOMENICA JARA ([id number])[facility])[address] [place] [address] Hematocrit (Bld) [Volume fraction] 28.8 % Low 40.0-52.0 [facility] Comment on above: Performed By: #### L AB294 ####Assisted Living Home Director: DOMENICA JARA ([id number])[facility])[address] [place] [address] Hemoglobin (Bld) [Mass/Vol] 8.6 g/dL Low 13.0-18.0 [facility] Comment on above: Performed By: #### L AB294 ####Assisted Living Home Director: DOMENICA JARA ([id number])[facility])[address] [place] [address] [place] MCH (RBC) [Entitic mass] 28.7 pg Normal 26.0-34.0 [facility] Comment on above: Performed By: #### L AB294 ####Assisted Living Home Director: DOMENICA JARA ([id number])[facility])[address] [place] [address] MCHC 29.9 % Low 30.5-36.0 [facility] Comment on above: Performed By: #### L [id number] ####Assisted Living Home Director: DOMENICA JARA ([id number])[facility] ([facility])[address] [place] [address] MCV (RBC) [Entitic vol] 96.0 fL Normal 77.0-99.0 S [facility] Comment on above: Performed By: #### L [id number] ####Assisted Living Home Director: DOMENICA JARA ([id number])[facility])[address] [place] [address] Platelet mean volume (Bld) [Entitic vol] 8.9 fL Low 9.0-12.7 [facility] Comment on above: Performed By: #### L [id number] ####Assisted Living Home Director: DOMENICA JARA ([id number])[facility] ([facility])[address] [place] [address] Platelets (Bld) [#/Vol] 302 10*3/uL Normal 140-440 [facility] Comment on above: Performed By: #### L AB294 ####Assisted Living Home Director: DOMENICA JARA ([id number])[facility])[address] [place] [address] RBC (Bld) [#/Vol] 3.00 10*6/uL Low 4.40-5.90 [facility] Comment on above: Performed By: #### L [id number] ####Assisted Living Home Director: DOMENICA JARA ([id number])[facility])[address] [place] [address] WBC (Bld) [#/Vol] 7.9 10*3/uL Normal 3.6-10.7 [facility] Comment on above: Performed By: #### L AB294 ####Assisted Living Home Director: DOMENICA JARA ([id number])[facility] ([facility])[address] [place] [address] CBC panel Auto (Bld)Ordered By: Brandy Ross on 02-27-2025 Erythrocyte distribution width (RBC) [Ratio] 19.5 % High 11.5 - 15.0 % [facility] Hematocrit (Bld) [Volume fraction] 28.8 % Low 40.0 - 52.0 % [facility] Hemoglobin (Bld) [Mass/Vol] 8.6 g/dL Low 13.0 - 18.0 g/dL [facility] Interpretation and review of laboratory results Abnormal [facility] MCH (RBC) [Entitic mass] 28.7 pg 26. 0 - 34.0 pg [facility] MCHC (RBC) [Mass/Vol] 29.9 % Low 30.5 - 36.0 % [facility] MCV (RBC) [Entitic vol] 96 fL 77.0 - 99.0 fL [facility] Platelet mean volume (Bld) [Entitic vol] 8.9 fL Low 9.0 - 12.7 fL [facility] Platelets (Bld) [#/Vol] 302 10*3/uL 140 - 440 10*3/uL [facility] RBC (Bld) [#/Vol] 3 10*6/uL Low 4.40 - 5.9 0 10*6/uL [facility] WBC (Bld) [#/Vol] 7.9 10*3/uL 3.6 - 10.7 10*3/uL [facility] ECG 12-LEADon 02-27-2025 ECG 12-LEAD IMPRESSION: Sinus rhythm Left atrial enlargement RBBB and LPFB Abnrm T, consider ischemia, anterolateral lds Compared to ECG 01/19/2025 06:31:48 Prolonged QT interval no longer present Electronically Signed On 02-27-2025 16:08:17 EDT by Ochoa Guido Normal [facility] Laboratory - Coagulationon 0 02-27-2025 PT Coag (Bld) [Time] 13.7 s High 9.0 - 12.0 s [facility] Laboratory - Microbiology an d Antimicrobial susceptibilityon 02-27-2025 Bacteria identified Cx Nom (Bld) No growth at 5 days [facility] [employer] Bacteria identified Cx Nom (Bld) No growth at 5 days [facility] [employer] No Panel InformationOrdered By: Ochoa Guido on 02-27-2025 P Edgar 76 degrees [facility] Work Phone: DE Interval 150 ms [facility] Work Phone: QRS Edgar 92 degrees [facility] [employer] Work Phone: QRSD Interval 124 ms [facility] Work Phone: QT Interval 417 ms [facility] Work Phone: QTC Interval 482 ms [facility] Work Phone: T Wave Edgar 95 degrees [facility] [employer] Work Phone: [facility] Work Phone: No Panel Informationon 02-27 CV EPIPHANY [facility] Interpretation and review of laboratory results Abnormal [facility] Nursing Noteon 02-27-2025 Nursing Note Normal [facility] Nursing Note Normal [facility] PROTHROMBIN TIMEon INR Coag (PPP) [Relative time] 1.3 {INR} High 0.9-1.1 [facility] Comment on above: Result Comment: Vaughn mmended [...] Myocardial Infarction Performed By: #### Tameka AB325, [id number] ####Assisted Living Home Director: DOMENICA JARA ([id number])[facility] ([address] PT Coag (PPP) [Time] 13.7 s High 9.0-12.0 [facility] Comment on above: Performed By: #### L AB325, [id number] ####Assisted Living Home Director: DOMENICA JARA ([id number])[facility] ([facility])[address] [place] [address] PT Coag (Bld) [Time]on 02-27 INR Coag (PPP) [Relative time] 1.3 {INR} High 0.9 - 1.1 [facility] Progress Noteon 02-27-2025 [facility] Progress [facility] Progress [facility] Progress Note [facility] Progress Note [facility] Vital signsOrdered By: Ochoa Guido on 02-27-2025 Heart rate 80 /min bpm [facility] Work Phone: aPTT Coag (Bld) [Time]on aPTT Coag (PPP) [Time] 55.6 s High 20.0 - 30.5 s [facility] 30on 02-26-2025 30 Normal [facility] [id number] 02-26-2025 [id number] Normal [facility] [id number] 02-26-2025 [id number] Getting updated therapy notes. Want to skill him at [facility]. Started on IV antibiotics for aspiration pneumonia. Continues on a heparin gtt. . [facility] [phone] Updated notes sent to [facility] via [facility] per [facility] request. Await review and response regarding ability to accept. [facility] notified. [facility] 36on 02-26-2025 36 Normal [facility] CBC W/Diff, Automatedon Absolute Neut Normal 2.0-7.7 [facility] Comment on above: Order Comment: 412.2 Result Comment: KIMBER ENT DISCHARGED Performed By: #### L 100.0100, L500.4050, L300.3900 #### [facility] [address] [place], [address] HCT Normal 40-54 [facility] Comment on above: Order Comment: 412.2 Result Comment: KIMBER ENT DISCHARGED Performed By: #### L 100.0100, L500.4050, [id number] #### [facility] [address] [place], [address] HGB Normal 13.0-16.5 [facility] Comment on above: Order Comment: 412.2 Result Comment: KIMBER ENT DISCHARGED Performed By: #### L 100.0100, L500.4050, L300.3900 #### [facility] [address] [place], [address] MCH Normal 27.0-32.0 [facility] Comment on above: Order Comment: 412.2 Result Comment: KIMBER ENT DISCHARGED Performed By: #### L 100.0100, L500.4050, [id number] #### [facility] [address] [place], [address] MCHC Normal 32-36 [facility] Comment on above: Order Comment: 412.2 Result Comment: KIMBER ENT DISCHARGED Performed By: #### L 100.0100, L500.4050, [id number] #### [facility] [address] [place], [address] MCV Normal 80-94 [facility] Comment on above: Order Comment: 412.2 Result Comment: KIMBER ENT DISCHARGED Performed By: #### L 100.0100, L500.4050, [id number] #### [facility] [address] [place], [address] NEUT% Normal 47-70 [facility] Comment on above: Order Comment: 412.2 Result Comment: KIMBER ENT DISCHARGED Performed By: #### L 100.0100, L500.4050, [id number] #### [facility] [address] [place], [address] PLT Normal 150-450 [facility] Comment on above: Order Comment: 412.2 Result Comment: KIMBER ENT DISCHARGED Performed By: #### L 100.0100, L500.4050, L300.3900 #### [facility] [address] [place], [address] RBC Normal 4.6-6.2 [facility] Comment on above: Order Comment: 412.2 Result Comment: KIMBER ENT DISCHARGED Performed By: #### L 100.0100, L500.4050, L300.3900 #### [facility] [address] [place], [address] RDW CV Normal 11.6-14.6 [facility] Comment on above: Order Comment: 412.2 Result Comment: KIMBER ENT DISCHARGED Performed By: #### L 100.0100, L500.4050, L300.3900 #### [facility] [address] [place], [address] RDW SD Normal 35.1-43.9 [facility] Comment on above: Order Comment: 412.2 Result Comment: KIMBER ENT DISCHARGED Performed By: #### L 100.0100, L500.4050, L300.3900 #### [facility] [address] [place], [address] WBC Normal 4.4-11.0 [facility] Comment on above: Order Comment: 412.2 Result Comment: KIMBER ENT DISCHARGED Performed By: #### L 100.0100, L500.4050, L300.3900 #### [facility] [address] [place], [address] Comprehensive Metabolic Prof ilon 02-26-2025 ALB Normal 3.5-5.0 [facility] Comment on above: Order Comment: 412.2 Result Comment: KIMBER ENT DISCHARGED Performed By: #### L 100.0100, L500.4050, L300.3900 #### [facility] [address] [place], [address] ALK PHOS Normal 40-129 [facility] Comment on above: Order Comment: 412.2 Result Comment: KIMBER ENT DISCHARGED Performed By: #### L 100.0100, L500.4050, [id number] #### [facility] [address] [place], [address] ALT Normal <=46 [facility] Comment on above: Order Comment: 412.2 Result Comment: KIMBER ENT DISCHARGED Performed By: #### L 100.0100, L500.4050, L300.3900 #### [facility] [address] [place], [address] AST Normal <=37 [facility] Comment on above: Order Comment: 412.2 Result Comment: KIMBER ENT DISCHARGED Performed By: #### L 100.0100, L500.4050, [id number] #### [facility] [address] [place], [address] BUN Normal 4-19 [facility] Comment on above: Order Comment: 412.2 Result Comment: KIMBER ENT DISCHARGED Performed By: #### L 100.0100, L500.4050, [id number] #### [facility] [address] [place], [address] BUN/CRE Normal 10-20 [facility] Comment on above: Order Comment: 412.2 Result Comment: KIMBER ENT DISCHARGED Performed By: #### L 100.0100, L500.4050, L300.3900 #### [facility] [address] [place], [address] Calcium Normal 7.6-11.0 [facility] Comment on above: Order Comment: 412.2 Result Comment: KIMBER ENT DISCHARGED Performed By: #### L 100.0100, L500.4050, L300.3900 #### [facility] [address] [place], [address] CL Normal 98-108 [facility] Comment on above: Order Comment: 412.2 Result Comment: KIMBER ENT DISCHARGED Performed By: #### L 100.0100, L500.4050, L300.3900 #### [facility] [address] [place], [address] CO2 Normal 21.0-32.0 [facility] Comment on above: Order Comment: 412.2 Result Comment: KIMBER ENT DISCHARGED Performed By: #### L 100.0100, L500.4050, L300.3900 #### [facility] [address] [place], [address] CREAT,SERUM Normal 0.70-1.20 [facility] Comment on above: Order Comment: 412.2 Result Comment: KIMBER ENT DISCHARGED Performed By: #### L 100.0100, L500.4050, L300.3900 #### [facility] [address] [place], [address] eGFR Normal >60 [facility] Comment on above: Order Comment: 412.2 Result Comment: KIMBER ENT DISCHARGED Performed By: #### L 100.0100, L500.4050, L300.3900 #### [facility] [address] [place], [address] GAP Normal 5-15 [facility] Comment on above: Order Comment: 412.2 Result Comment: KIMBER ENT DISCHARGED Performed By: #### L 100.0100, L500.4050, L300.3900 #### [facility] [address] [place], [address] GLU Normal 70-99 [facility] Comment on above: Order Comment: 412.2 Result Comment: KIMBER ENT DISCHARGED Performed By: #### L 100.0100, L500.4050, L300.3900 #### [facility] [address] [place], [address] Potassium Normal 3.3-5.1 [facility] Comment on above: Order Comment: 412.2 Result Comment: KIMBER ENT DISCHARGED Performed By: #### L 100.0100, L500.4050, L300.3900 #### [facility] [address] [place], [address] T BILI Normal 0.00-1.30 [facility] Comment on above: Order Comment: 412.2 Result Comment: KIMBER ENT DISCHARGED Performed By: #### L 100.0100, L500.4050, L300.3900 #### [facility] [address] [place], [address] T PROT Normal 5.9-8.4 [facility] Comment on above: Order Comment: 412.2 Result Comment: KIMBER ENT DISCHARGED Performed By: #### L 100.0100, L500.4050, L300.3900 #### [facility] [address] [place], [address] Comprehensive Metabolic Profil Normal 133-145 [facility] Comment on above: Order Comment: 412.2 Result Comment: KIMBER ENT DISCHARGED Performed By: #### L 100.0100, L500.4050, L300.3900 #### [facility] [address] [place], [address] HIGH SENSITIVITY TROPONIN, S MITCHELL, SECOND TESTon 02-26-2025 2H TROPONIN HS (SERIAL 2ND TROPONIN) 80 ng/L High <=35 [facility] Comment on above: Result Comment: 2h t roponin (2nd troponin) samples collected between 1h 40 min and 2h and 20 min of the baseline collection time can be utilized to interpret delta troponins as per [facility] algorithms. Samples collected outside this timeframe need to be interpreted clinically.Rising or falling troponin delta between 2 ??? 15 ng/L as compared to baseline value requires a 3rd serial troponin Performed By: #### L [id number] ####Assisted Living Home Director: DOMENICA JARA ([id number])[facility] ([address] [address] [place] HIGH SENSITIVITY TROPONIN, S ERIAL, THIRD TESTon 02-26-2025 4H TROPONIN HS (SERIAL 3RD TROPONIN) 75 ng/L High <=35 [facility] Comment on above: Result Comment: 4h t roponin (3rd troponin) samples collected between 1h 40 min and 2h and 20 min of the 2h troponin collection time can be utilized to interpret delta troponins as per [facility] algorithms. Samples collected outside this timeframe need to be interpreted clinically.Rising or falling troponin delta between 2 ??? 15 ng/L as compared to 2h troponin valuerequires further evaluation. Performed By: #### L [id number] ####Assisted Living Home Director: DOMENICA JARA ([id number])[facility] ([facility])[address] [place] [address] Laboratory - Coagulationon 0 02-26-2025 PT Coag (Bld) [Time] 13.5 s High 9.0 - 12.0 s [facility] No Panel Informationon 02-26 4h Troponin HS (Serial 3rd Troponin) 75 ng/L [facility]L [facility] Interpretation and review of laboratory results Abnormal [facility] 2h Troponin HS (Serial 2nd Troponin) 80 ng/L [facility]/L [facility] Interpretation and review of laboratory results Abnormal [facility] Interpretation and review of laboratory results Abnormal [facility] Troponin HS Serial Baseline 84 ng/L [facility]/L [facility] Interpretation and review of laboratory results Abnormal [facility] PT Coag (Bld) [Time]on 02-26 INR Coag (PPP) [Relative time] 1.3 {INR} High 0.9 - 1.1 [facility] Progress Noteon 02-26-2025 Progress Note Normal [facility] Progress Note Normal [facility] Progress Note Normal [facility] Progress Note Normal [facility] Progress Note Normal [facility] Prothrombin Time w/INRon INR Normal [facility] Comment on above: Order Comment: 412.2 Result Comment: KIMBER ENT DISCHARGED Performed By: #### L 100.0100, L500.4050, L300.3900 #### [facility] [address] [place], [address] PROTIME Normal 11.7-14.9 [facility] Comment on above: Order Comment: 412.2 Result Comment: KIMBER ENT DISCHARGED Performed By: #### L 100.0100, L500.4050, L300.3900 #### [facility] [address] [place], [address] aPTT Coag (Bld) [Time]on aPTT Coag (PPP) [Time] 48.2 s High 20.0 - 30.5 s [facility] 30on 02-25-2025 30 Normal [facility] 30 Normal [facility] APTTon 02-25-2025 aPTT Coag (Bld) [Time] 48.2 s High 20.0-30.5 [facility] Comment on above: Result Comment: ARPAN Kaplan COMMENTS:NOTE: The therapeutic time for Heparin anticoagulation, based on Xa activity inhibition, is an APTT of 46-80 seconds. Performed By: #### L AB325, [id number] ####Assisted Living Home Director: DOMENICA JARA ([id number])[address] aPTT Coag (Bld) [Time] 49.5 s High 20.0-30.5 [facility] Comment on above: Result Comment: ARPAN Kaplan COMMENTS:NOTE: The therapeutic time for Heparin anticoagulation, based on Xa activity inhibition, is an APTT of 46-80 seconds. Performed By: #### L AB320, [id number] ####Assisted Living Home Director: DOMENICA JARA ([id number])[address] CBC (HEMOGRAM)on 02-25-2025 Erythrocyte distribution width (RBC) [Ratio] 19.9 % High 11.5-15.0 [facility] Comment on above: Performed By: #### L AB294 ####Assisted Living Home Director: DOMENICA JARA ([id number])[facility] ([facility])[address] [place] [address] Hematocrit (Bld) [Volume fraction] 24.1 % Low 40.0-52.0 [facility] Comment on above: Performed By: #### L AB294 ####Assisted Living Home Director: DOMENICA JARA ([id number])[facility])[address] [place] [address] Hemoglobin (Bld) [Mass/Vol] 7.6 g/dL Low 13.0-18.0 [facility] Comment on above: Performed By: #### L AB294 ####Assisted Living Home Director: DOMENICA JARA ([id number])[facility])[address] [place] [address] MCH (RBC) [Entitic mass] 29.3 pg Normal 26.0-34.0 [facility] Comment on above: Performed By: #### L AB294 ####Assisted Living Home Director: DOMENICA JARA ([id number])[facility] ([facility])[address] [place] [address] MCHC 31.5 % Normal 30.5-36.0 [facility] Comment on above: Performed By: #### L AB294 ####Assisted Living Home Director: DOMENICA JARA ([id number])[facility])[address] [place] [address] MCV (RBC) [Entitic vol] 93.1 fL Normal 77.0-99.0 [facility] Comment on above: Performed By: #### L AB294 ####Assisted Living Home Director: DOMENICA JARA ([id number])[facility] ([facility])[address] [place] [address] Platelet mean volume (Bld) [Entitic vol] 8.9 fL Low 9.0-12.7 [facility] Comment on above: Performed By: #### L AB294 ####Assisted Living Home Director: DOMENICA JARA ([phone])[facility])[address] Platelets (Bld) [#/Vol] 280 10*3/uL Normal 140-440 [facility] Comment on above: Performed By: #### L AB294 ####Assisted Living Home Director: DOMENICA JARA ([id number])[facility])[address] [place] [address] RBC (Bld) [#/Vol] 2.59 10*6/uL Low 4.40-5.90 [facility] Comment on above: Performed By: #### L AB294 ####Assisted Living Home Director: DOMENICA JARA ([id number])[facility])[address] [place] [address] WBC (Bld) [#/Vol] 7.5 10*3/uL Normal 3.6-10.7 [facility] Comment on above: Performed By: #### L AB294 ####Assisted Living Home Director: DOMENICA JARA ([id number])[facility] ([facility])[address] [place] [address] CBC panel Auto (Bld)on 02-25 Erythrocyte distribution width (RBC) [Ratio] 19.9 % High 11.5 - 15.0 % [facility] Hematocrit (Bld) [Volume fraction] 24.1 % Low 40.0 - 52.0 % [facility] Hemoglobin (Bld) [Mass/Vol] 7.6 g/dL Low 13.0 - 18.0 g/dL [facility] Interpretation and review of laboratory results Abnormal [facility] MCH (RBC) [Entitic mass] 29.3 pg 26. 0 - 34.0 pg [facility] MCHC (RBC) [Mass/Vol] 31.5 % 30.5 - 36.0 % [facility] MCV (RBC) [Entitic vol] 93.1 fL 77.0 - 99.0 fL [facility] Platelet mean volume (Bld) [Entitic vol] 8.9 fL Low 9.0 - 12.7 fL [facility] Platelets (Bld) [#/Vol] 280 10*3/uL 140 - 440 10*3/uL [facility] RBC (Bld) [#/Vol] 2.59 10*6/uL Low 4.40 - 5.9 0 10*6/uL [facility] WBC (Bld) [#/Vol] 7.5 10*3/uL 3.6 - 10.7 10*3/uL [facility] HIGH SENSITIVITY TROPONIN, S ERIAL BASELINEon 02-25-2025 TROPONIN HS SERIAL BASELINE 84 ng/L High <=35 [facility] Comment on above: Result Comment: In i ndividuals presenting with symptoms > 2h, a baseline troponin <= 5 ng/L suggests acutecardiac injury is unlikely and further serial testing is generally not indicated. Performed By: #### L [id number] ####Assisted Living Home Director: DOMENICA JARA ([id number])[facility] ([address] Laboratory - Coagulationon 0 02-25-2025 PT Coag (Bld) [Time] 13.7 s High 9.0 - 12.0 s [facility] No Panel Informationon 02-25 Interpretation and review of laboratory results Abnormal [facility] Nursing Noteon 02-25-2025 Nursing Note 2322- Notified Dr. Hathaway of patient complaint of SOB and worsening chest pain that he described as dull and tight. Vitals WDL. STAT EKG ordered, patient given Nitrostat, and troponin sent down. 2330- Notified [employer] ARCHITECT to assess the patient. Normal [facility] PROTHROMBIN TIMEon INR Coag (PPP) [Relative time] 1.3 {INR} High 0.9-1.1 [facility] Comment on above: Result Comment: Vaughn mmended [...] Myocardial Infarction Performed By: #### L AB325, [id number] ####Assisted Living Home Director: DOMENICA JARA ([id number])[facility])[address] [place] [address] PT Coag (PPP) [Time] 13.5 s High 9.0-12.0 [facility] Comment on above: Performed By: #### L AB325, [id number] ####Assisted Living Home Director: DOMENICA JARA ([id number])[facility])[address] [place] [address] INR Coag (PPP) [Relative time] 1.3 {INR} High 0.9-1.1 [facility] Comment on above: Result Comment: Vaughn mmended [...] Myocardial Infarction Performed By: #### L AB320, [id number] ####Assisted Living Home Director: DOMENICA JARA ([id number])[facility])[address] [place] [address] [place] PT Coag (PPP) [Time] 13.7 s High 9.0-12.0 [facility] Comment on above: Performed By: #### L AB320, [id number] ####Assisted Living Home Director: DOMENICA JARA ([phone])[facility])[address] [place] [address] [place] PT Coag (Bld) [Time]on 02-25 INR Coag (PPP) [Relative time] 1.3 {INR} High 0.9 - 1.1 [facility] Progress Noteon 02-25-2025 Progress Note Normal [facility] Progress Note Normal [facility] Progress Note Normal [facility] Progress Note Normal [facility] aPTT Coag (Bld) [Time]on aPTT Coag (PPP) [Time] 49.5 s High 20.0 - 30.5 s [facility] 30on 02-24-2025 30 Normal [facility] 30 Normal [facility] APTTon 02-24-2025 aPTT Coag (Bld) [Time] 54.7 s High 20.0-30.5 [facility] Comment on above: Result Comment: ARPAN Kaplan COMMENTS:NOTE: The therapeutic time for Heparin anticoagulation, based on Xa activity inhibition, is an APTT of 46-80 seconds. Performed By: #### L AB325 ####Assisted Living Home Director: DOMENICA JARA ([id number])[facility] ([facility])[address] [place] [address] [facility] aPTT Coag (Bld) [Time] 61.0 s High 20.0-30.5 [facility] Comment on above: Result Comment: ARPAN Kaplan COMMENTS:NOTE: The therapeutic time for Heparin anticoagulation, based on Xa activity inhibition, is an APTT of 46-80 seconds. Performed By: #### L AB320, [id number] ####Assisted Living Home Director: DOMENICA JARA ([id number])[facility] ([facility])[address] [place] [id number] [place] [address] Bacteria identified Aer cx N om (Lower resp)Ordered By: Corey Pabon on 02-24-2025 Gram Stain Result Many Polymorphonuclear leukocytes per low power field Abnormal [facility] Gram Stain Result Few Epithelial cells per low power field Abnormal [facility] Gram Stain Result Positive Abnormal [facility] Gram Stain Result Negative [facility] Gram Stain Result Few Yeast Abnormal [facility] Interpretation and review of laboratory results Abnormal [facility] HBV surface Ab IA Qnon 02-24 [facility] HBV surface Ag IA Qlon 02-24 Interpretation and review of laboratory results Normal [facility] HEPATITIS B SURFACE ANTIBODY on 02-24-2025 HEPATITIS B VIRUS SURFACE AB <8.0 Normal [facility] Comment on above: Result Comment: ARPAN Kaplan COMMENTS:Interpretation:<8.0 Non-Reactive8.0-11.9 Equivocal>= 12.0 Ab DetectedNote: If an equivocal result is interpreted, an antibody status is unable to be determined. Collect new specimen if clinically indicated. Performed By: #### L AB472, [id number] ####Assisted Living Home Director: DOMENICA JARA ([id number])[facility] ([facility])[address] [place] [address] HEPATITIS B SURFACE ANTIGENo n 02-24-2025 HEPATITIS B VIRUS SURFACE AG Not detected Normal Not Detected [facility] Comment on above: Performed By: #### L AB472, [id number] ####Assisted Living Home Director: DOMENICA JARA ([id number])[facility] ([facility])[address] [place] [address] Laboratory - Coagulationon 0 02-24-2025 PT Coag (Bld) [Time] 13.5 s High 9.0 - 12.0 s [facility] Laboratory - Drug toxicology on 02-24-2025 Vancomycin trough [Mass/Vol] 23.4 ug/mL [facility] Laboratory - Microbiology an d Antimicrobial susceptibilityon 02-24-2025 HBV surface Ab IA Qn mIU/mL [facility] HBV surface Ag IA Ql Not detected Not Detected [facility] Laboratory - Microbiology an d Antimicrobial susceptibilityOrdered By: Corey Pabon on 02-24-2025 Bacteria identified Aer cx Nom (Lower resp) Few respiratory ila present. [facility] Bacteria identified Aer cx Nom (Lower resp) Moderate Klebsiella oxytoca Abnormal [facility] No Panel Informationon 02-24 [facility] Interpretation and review of laboratory results Abnormal [facility] Nursing Noteon 02-24-2025 Nursing Note Normal [facility] PROTHROMBIN TIMEon INR Coag (PPP) [Relative time] 1.3 {INR} High 0.9-1.1 [facility] Comment on above: Result Comment: Vaughn mmended [...] Myocardial Infarction Performed By: #### L AB320, [id number] ####Assisted Living Home Director: DOMENICA JARA ([id number])[facility] ([facility])[address] [place] [address] PT Coag (PPP) [Time] 13.5 s High 9.0-12.0 [facility] Comment on above: Performed By: #### L AB320, [id number] ####Assisted Living Home Director: DOMENICA JARA ([id number])[facility] ([facility])[address] [place] [address] PT Coag (Bld) [Time]on 02-24 INR Coag (PPP) [Relative time] 1.3 {INR} High 0.9 - 1.1 [facility] Progress Noteon 02-24-2025 Progress Note Vancomycin therapy has been discontinued by Hussain Quintana on 02/24. Thank you for the consult. Pharmacy signing off for vancomycin dosing. Marissa Iglesias, PharmD, Date: 02/24/25 Time: 4:08 PM Normal [facility] Progress Note Normal [facility] Progress Note Normal [facility] Progress Note Normal [facility] Progress Note Normal [facility] VANCOMYCIN, AUC TIMED DOSING on 02-24-2025 VANCOMYCIN, AUC 23.4 ug/mL [facility] Comment on above: Result Comment: ARPAN Kaplan COMMENTS:Please draw random level at least >4 hours after the end of hemodialysis.Toxicity is seen at concentrations >80-100 ug/mLTherapeutic (Peak) range: 20-40Therapeutic (Trough) range: 5-10 Performed By: #### L AB39 ####Assisted Living Home Director: DOMENICA JARA ([id number])[facility] ([facility])[address] [place] [address] Vancomycin trough [Mass/Vol] on 02-24-2025 [facility] aPTT Coag (Bld) [Time]on aPTT Coag (PPP) [Time] 54.7 s High 20.0 - 30.5 s [facility] Interpretation and review of laboratory results Abnormal [facility] aPTT Coag (PPP) [Time] 61 s High 20.0 - 30.5 s [facility] [id number] 02-23-2025 [id number] Normal [facility] 36on 02-23-2025 36 Called LM to call back and schedule CT and hospital follow up with any ARMIN Normal [facility] 36 Hello, can we please schedule a 6-week CT scan for this patient and a follow-up appointment after this? Thank you Normal [facility] APTTon 02-23-2025 aPTT Coag (Bld) [Time] 49.3 s High 20.0-30.5 [facility] Comment on above: Result Comment: ARPAN Kaplan COMMENTS:NOTE: The therapeutic time for Heparin anticoagulation, based on Xa activity inhibition, is an APTT of 46-80 seconds. Performed By: #### L AB325, [id number] ####Assisted Living Home Director: DOMENICA JARA ([id number])[facility])[address] [place] [address] CBC (HEMOGRAM)on 02-23-2025 Erythrocyte distribution width (RBC) [Ratio] 19.7 % High 11.5-15.0 [facility] Comment on above: Performed By: #### L AB294 ####Assisted Living Home Director: DOMENICA JARA ([id number])[facility])[address] [place] [address] Hematocrit (Bld) [Volume fraction] 27.9 % Low 40.0-52.0 [facility] Comment on above: Performed By: #### L AB294 ####Assisted Living Home Director: DOMENICA JARA ([id number])[facility] ([facility])[address] [place] [address] Hemoglobin (Bld) [Mass/Vol] 8.6 g/dL Low 13.0-18.0 [facility] Comment on above: Performed By: #### L AB294 ####Assisted Living Home Director: DOMENICA JARA ([phone])[facility])[address] [place] [address] MCH (RBC) [Entitic mass] 28.7 pg Normal 26.0-34.0 [facility] Comment on above: Performed By: #### L AB294 ####Assisted Living Home Director: DOMENICA JARA ([id number])[facility])[address] [place] [address] MCHC 30.8 % Normal 30.5-36.0 [facility] Comment on above: Performed By: #### L AB294 ####Assisted Living Home Director: DOMENICA JARA ([id number])[facility])[address] [place] [address] MCV (RBC) [Entitic vol] 93.0 fL Normal 77.0-99.0 [facility] Comment on above: Performed By: #### L AB294 ####Assisted Living Home Director: DOMENICA JARA ([id number])[facility])[address] [place] [address] Platelet mean volume (Bld) [Entitic vol] 8.9 fL Low 9.0-12.7 [facility] Comment on above: Performed By: #### L AB294 ####Assisted Living Home Director: DOMENICA JARA ([id number])[facility])[address] [place] [address] Platelets (Bld) [#/Vol] 316 10*3/uL Normal 140-440 [facility] Comment on above: Performed By: #### L AB294 ####Assisted Living Home Director: DOMENICA JARA ([id number])[facility])[address] [place] [address] RBC (Bld) [#/Vol] 3.00 10*6/uL Low 4.40-5.90 [facility] Comment on above: Performed By: #### L AB294 ####Assisted Living Home Director: DOMENICA JARA ([id number])[facility])[address] [place] [address] WBC (Bld) [#/Vol] 8.6 10*3/uL Normal 3.6-10.7 [facility] Comment on above: Performed By: #### L AB294 ####Assisted Living Home Director: DOMENICA JARA ([id number])[facility] ([facility])[address] [place] [address] CBC panel Auto (Bld)on 02-23 Erythrocyte distribution width (RBC) [Ratio] 19.7 % High 11.5 - 15.0 % [facility] Hematocrit (Bld) [Volume fraction] 27.9 % Low 40.0 - 52.0 % [facility] Hemoglobin (Bld) [Mass/Vol] 8.6 g/dL Low 13.0 - 18.0 g/dL [facility] Interpretation and review of laboratory results Abnormal [facility] MCH (RBC) [Entitic mass] 28.7 pg 26. 0 - 34.0 pg [facility] MCHC (RBC) [Mass/Vol] 30.8 % 30.5 - 36.0 % [facility] MCV (RBC) [Entitic vol] 93 fL 77.0 - 99.0 fL [facility] Platelet mean volume (Bld) [Entitic vol] 8.9 fL Low 9.0 - 12.7 fL [facility] Platelets (Bld) [#/Vol] 316 10*3/uL 140 - 440 10*3/uL [facility] RBC (Bld) [#/Vol] 3 10*6/uL Low 4.40 - 5.9 0 10*6/uL [facility] WBC (Bld) [#/Vol] 8.6 10*3/uL 3.6 - 10.7 10*3/uL [facility] COMPREHENSIVE METABOLIC PANE Victor M 02-23-2025 Albumin [Mass/Vol] 1.9 g/dL Low 3.5-5.0 [facility] Comment on above: Performed By: #### L AB113, LAB17, [id number] ####Assisted Living Home Director: DOMENICA JARA ([id number])[facility] ([facility])[address] [place] [address] ALP [Catalytic activity/Vol] 136 U/L Normal 40-150 [facility] Comment on above: Performed By: #### L AB113, LAB17, [id number] ####Assisted Living Home Director: DOMENICA JARA ([id number])[facility] ([facility])[address] [place] [address] ALT [Catalytic activity/Vol] 10 U/L Normal <40 [facility] Comment on above: Performed By: #### Tameka ABAruna, LAB17, [id number] ####Assisted Living Home Director: DOMENICA JARA ([id number])[facility] ([facility])[address] [place] [address] Anion gap [Moles/Vol] 11 mmol/L Normal 3-13 [facility] Comment on above: Performed By: #### Tameka ABAruna, LAB17, [id number] ####Assisted Living Home Director: DOMENICA JARA ([id number])[facility] ([facility])[address] [place] [address] AST [Catalytic activity/Vol] 37 U/L High <34 [facility] Comment on above: Performed By: #### Tameka GIMENEZ, LAB17, [id number] ####Assisted Living Home Director: DOMENICA JARA ([id number])[facility] ([facility])[address] [place] [address] Bilirubin [Mass/Vol] 0.6 mg/dL Normal <1.2 [facility] Comment on above: Performed By: #### Tameka GIMENEZ, LAB17, [id number] ####Assisted Living Home Director: DOMENICA JARA ([id number])[facility] ([facility])[address] [place] [address] Calcium [Mass/Vol] 9.2 mg/dL Normal 8.4-10.2 [facility] Comment on above: Performed By: #### Tameka GIMENEZ, LAB17, [id number] ####Assisted Living Home Director: DOMENICA JARA ([id number])[facility] ([facility])[address] [place] [address] [place] Chloride [Moles/Vol] 99 mmol/L Normal 98-107 [facility] Comment on above: Performed By: #### L ABAruna, LAB17, [id number] ####Assisted Living Home Director: DOMENICA JARA ([id number])[facility] ([facility])[address] [place] [address] [place] CO2 [Moles/Vol] 25 mmol/L Normal 22-29 [facility] Comment on above: Performed By: #### L AB113, LAB17, [id number] ####Assisted Living Home Director: DOMENICA JARA ([id number])[facility] ([facility])[address] [place] [address] Creatinine [Mass/Vol] 2.78 mg/dL High 0.72-1.25 [facility] Comment on above: Performed By: #### Tameka ABAruna, LAB17, [id number] ####Assisted Living Home Director: DOMENICA JARA ([id number])[facility] ([facility])[address] [place] [address] GLOMERULAR FILTRATION RATE ML/MIN/1.73 SQ M.PREDICTED 25.4 mL/min/1.73m*2 Low >60.0 [facility] Comment on above: Result Comment: Calc ulation based on the Chronic Kidney Disease Epidemiology Collaboration (CKD-EPI) equation refit without adjustment for race Performed By: #### Tameka GIMENEZ, LAB17, [id number] ####Assisted Living Home Director: DOMENICA JARA ([id number])[facility] ([facility])[address] [place] [address] Glucose [Mass/Vol] 110 mg/dL High 74-100 [facility] Comment on above: Performed By: #### Tameka ABAruna, LAB17, [id number] ####Assisted Living Home Director: DOMENICA JARA ([id number])[facility])[address] [place] [address] Potassium [Moles/Vol] 4.1 mmol/L Normal 3.5-5.1 [facility] Comment on above: Result Comment: [facility] potassium values may be up to 0.5 mmol/L lower than serum values. Performed By: #### L AB113, LAB17, [id number] ####Assisted Living Home Director: DOMENICA JARA ([id number])[facility])[address] [place] [address] Protein [Mass/Vol] 7.1 g/dL Normal 6.4-8.3 [facility] Comment on above: Performed By: #### L AB113, LAB17, [id number] ####Assisted Living Home Director: DOMENICA JARA ([id number])[facility] ([facility])[address] [place] [address] Sodium [Moles/Vol] 135 mmol/L Low 136-145 [facility] Comment on above: Performed By: #### L AB113, LAB17, [id number] ####Assisted Living Home Director: DOMENICA JARA ([id number])[facility] ([facility])[address] [place] [address] Urea nitrogen [Mass/Vol] 21 mg/dL Normal 9-23 [facility] Comment on above: Performed By: #### L AB113, LAB17, [id number] ####Assisted Living Home Director: DOMENICA JARA ([id number])[facility] ([facility])[address] [place] [address] Comprehensive metabolic 1998 panelOrdered By: Jarred José on 02-23-2025 Albumin [Mass/Vol] 1.9 g/dL Low 3.5 - 5.0 g/dL [facility] ALP [Catalytic activity/Vol] 136 U/L 40 - 150 U/L [facility] ALT [Catalytic activity/Vol] 10 U/L NINF - 40 U/L [facility] Anion gap [Moles/Vol] 11 mmol/L 3 - 13 mmol/L [facility] AST [Catalytic activity/Vol] 37 U/L High NINF - 34 U/L [facility] Bilirubin [Mass/Vol] 0.6 mg/dL NINF - 1.2 mg/dL [facility] Calcium [Mass/Vol] 9.2 mg/dL 8.4 - 10. 2 mg/dL [facility] Chloride [Moles/Vol] 99 mmol/L 98 - 10 7 mmol/L [facility] CO2 [Moles/Vol] 25 mmol/L 22 - 29 mmol/L [facility] Creatinine [Mass/Vol] 2.78 mg/dL High 0.72 - 1.25 mg/dL [facility] GFR/1.73 sq M.predicted (S/P/Bld) [Vol rate/Area] 25.4 mL/min Low - PINF [facility] Glucose [Mass/Vol] 110 mg/dL High 74 - 100 mg/dL [facility] Interpretation and review of laboratory results Abnormal [facility] Potassium [Moles/Vol] 4.1 mmol/L 3.5 - 5.1 mmol/L [facility] Protein [Mass/Vol] 7.1 g/dL 6.4 - 8.3 g/dL [facility] Sodium [Moles/Vol] 135 mmol/L Low 136 - 145 mmol/L [facility] Urea nitrogen [Mass/Vol] 21 mg/dL 9 - 23 mg/d L [facility] Consulton 02-23-2025 Consult Normal [facility] Laboratory - Chemistry and C hemistry - challengeon 02-23-2025 Magnesium [Mass/Vol] 2 mg/dL 1.6 - 2 .6 mg/dL [facility] Laboratory - Coagulationon 0 02-23-2025 PT Coag (Bld) [Time] 14 s High 9.0 - 12.0 s [facility] MAGNESIUMon 02-23-2025 Magnesium [Mass/Vol] 2.0 mg/dL Normal 1.6-2.6 [facility] Comment on above: Result Comment: ARPAN Kaplan COMMENTS:Higher values can be expected in females during menses. Performed By: #### L AB113, LAB17, [id number] ####Assisted Living Home Director: DOMENICA JARA ([id number])[facility])[address] [place] [address] Magnesium [Mass/Vol]on 02-23 [facility] No Panel Informationon 02-23 Interpretation and review of laboratory results Normal [facility] Interpretation and review of laboratory results Abnormal [facility] Nursing Noteon 02-23-2025 Nursing Note Normal [facility] Nursing Note Normal [facility] PHOSPHORUSon 02-23-2025 Phosphate [Mass/Vol] 2.6 mg/dL Normal 2.3-4.7 [facility] Comment on above: Performed By: #### L AB113, LAB17, [id number] ####Assisted Living Home Director: DOMENICA JARA ([phone])[facility] ([facility])[address] [place] [address] PROTHROMBIN TIMEon INR Coag (PPP) [Relative time] 1.3 {INR} High 0.9-1.1 [facility] Comment on above: Result Comment: Vaughn mmended [...] Myocardial Infarction Performed By: #### L AB325, [id number] ####Assisted Living Home Director: DOMENICA JARA ([id number])[facility] ([facility])[address] [place] [address] PT Coag (PPP) [Time] 14.0 s High 9.0-12.0 [facility] Comment on above: Performed By: #### Tameka AB325, [id number] ####Assisted Living Home Director: DOMENICA JARA ([id number])[facility] [place] [address] PT Coag (Bld) [Time]on 02-23 INR Coag (PPP) [Relative time] 1.3 {INR} High 0.9 - 1.1 [facility] [employer] Phosphate [Moles/Vol]on 01-27 Phosphate [Mass/Vol] 2.6 mg/dL 2.3 - 4 .7 mg/dL [facility] Progress Noteon 02-23-2025 Progress Note Normal [facility] Progress [facility] Normal [facility] Progress [facility] Normal [facility] Progress Note Normal [facility] Progress Note Normal [facility] US Heart TransthoracicOrdere d By: Daryn Chowdary on 02-23-2025 Aortic valve Mean systole pressure gradient by US.doppler derived full Bernoulli [address] [facility] Work Phone: Aortic valve Orifice area by US 3.1 cm2 [facility] [employer] Work Phone: Aortic valve Peak systolic flow by US.doppler 1.4 m/s [facility] Work Phone: Ascending Aorta 3.5 cm [facility] Work Phone: Ascending Aorta Index 1.99 cm/m2 [facility] Work Phone: AV Area by Peak Velocity 1.3 cm2 [facility] Work Phone: AV Area by VTI 1.5 cm2 [facility] Work Phone: AV AT 66.6 ms [facility] Work Phone: AV Peak Gradient 20 mmHg [facility] Work Phone: AV Peak Velocity 2.3 m/s [facility] Work Phone: AV Velocity Ratio 0.39 [facility] Work Phone: AV VTI 39.1 cm [facility] Work Phone: MALU/BSA Peak Velocity 0.7 cm2/m2 [facility] Work Phone: MALU/BSA VTI 0.9 cm2/m2 [facility] Work Phone: E/E' Lateral 21.43 [facility] Work Phone: E/E' Ratio (Averaged) 25.71 [facility] Work Phone: E/E' Septal 30 [facility] Work Phone: Est. RA Pressure 15 mmHg [facility] Work Phone: Fractional Shortening 2D 31 % 28 - 44 % [facility] Work Phone: Interpretation and review of laboratory results Abnormal [facility] Work Phone: IVC Diameter 2.5 cm [facility] Work Phone: IVSd 1.6 cm Abnormal 0.6 - 1.0 cm [facility] Work Phone: LA Diameter 3.1 cm [facility] Work Phone: LA Size Index 1.76 cm/m2 [facility] Work Phone: LA Volume 2C 69 mL Abnormal 18 - 58 mL [facility] Work Phone: LA Volume 4C 84 mL Abnormal 18 - 58 mL [facility] Work Phone: LA Volume A/L 85 mL [facility] Work Phone: LA Volume BP 78 mL Abnormal 18 - 58 mL [facility] Work Phone: LA Volume Index 2C 39 mL/m2 Abnormal 16 - 34 mL/m2 [facility] Work Phone: LA Volume Index 4C 48 mL/m2 Abnormal 16 - 34 mL/m2 [facility] Work Phone: LA Volume Index A/L 48 mL/m2 16 - 34 mL/m2 [facility] Work Phone: LA Volume Index BP 44 ml/m2 Abnormal 16 - 34 ml/m2 [facility] Work Phone: LV E' Lateral Velocity 7 cm/s [facility] Work Phone: LV E' Septal Velocity 5 cm/s [facility] Work Phone: LV Mass 2D 201 g 88 - 224 g [facility] [employer] Work Phone: LV Mass 2D Index 114.2 g/m2 49 - 115 g/m2 [facility] Work Phone: LV RWT Ratio 0.78 [facility] Work Phone: LVIDd 3.6 cm Abnormal 4.2 - 5.9 cm [facility] Work Phone: LVIDd Index 2.05 cm/m2 [facility] Work Phone: LVIDs 2.5 cm [facility] Work Phone: LVIDs Index 1.42 cm/m2 [facility] Work Phone: LVOT Cardiac Output 5.3 liter/minute [facility] Work Phone: LVOT Diameter 2 cm [facility] [employer] Work Phone: LVOT Mean Gradient 2 mmHg [facility] Work Phone: LVOT Peak Gradient 3 mmHg [facility] Work Phone: LVOT Peak Velocity 0.9 m/s [facility] Work Phone: LVOT Stroke Volume Index 33.4 mL/m2 [facility] Work Phone: LVOT SV 58.7 ml [facility] Work Phone: LVOT VTI 18.7 cm [facility] Work Phone: LVOT:AV VTI Index 0.48 [facility] Work Phone: LVPWd 1.4 cm Abnormal 0.6 - 1.0 cm [facility] Work Phone: MV A Velocity 0.97 m/s [facility] Work Phone: MV Area by PHT 3 cm2 [facility] Work Phone: MV Area by VTI 1.3 cm2 [facility] Work Phone: MV E Velocity 1.5 m/s [facility] Work Phone: MV E Wave Deceleration Time 250.1 ms [facility] Work Phone: MV E/A 1.55 [facility] Work Phone: MV Max Velocity 2 m/s [facility] Work Phone: MV Mean Gradient 7 mmHg [facility] Work Phone: MV Mean Velocity 1.2 m/s [facility] Work Phone: MV Peak Gradient 16 mmHg [facility] Work Phone: MV PHT 73.9 ms [facility] Work Phone: MV VTI 44.1 cm [facility] Work Phone: MV:LVOT VTI Index 2.36 [facility] Work Phone: PV Max Velocity [...] [facility] Work Phone: US Heart Transthoracicon [facility] aPTT Coag (Bld) [Time]on aPTT Coag (PPP) [Time] 49.3 s High 20.0 - 30.5 s [facility] 30on 02-22-2025 30 Normal [facility] [id number] 02-22-2025 [id number] Normal [facility] [id number] Updated notes sent to [facility] via [employer] per TCC request. Await review and response regarding ability to accept. TCC notified. Normal [facility] APTTon 02-22-2025 aPTT Coag (Bld) [Time] 52.1 s High 20.0-30.5 [facility] Comment on above: Result Comment: ARPAN Kaplan COMMENTS:NOTE: The therapeutic time for Heparin anticoagulation, based on Xa activity inhibition, is an APTT of 46-80 seconds. Performed By: #### L AB325 ####Assisted Living Home Director: DOMENICA JARA ([id number])[address] aPTT Coag (Bld) [Time] 54.9 s High 20.0-30.5 [facility] Comment on above: Result Comment: ARPAN Kaplan COMMENTS:NOTE: The therapeutic time for Heparin anticoagulation, based on Xa activity inhibition, is an APTT of 46-80 seconds. Performed By: #### L AB325, [id number] ####Assisted Living Home Director: DOMENICA JARA ([id number])[address] BLOOD CULTUREon 02-22-2025 Bacteria identified Cx Nom (Bld) Normal [facility] Comment on above: Performed By: #### L AB462 ####Assisted Living Home Director: DOMENICA JARA ([id number])[address] Bacteria identified Cx Nom (Bld) Normal [facility] Comment on above: Performed By: #### L AB462 ####Assisted Living Home Director: DOMENICA JARA ([id number])[address] CBC (HEMOGRAM)on 02-22-2025 Erythrocyte distribution width (RBC) [Ratio] 19.4 % High 11.5-15.0 [facility] Comment on above: Performed By: #### L AB294 ####Assisted Living Home Director: DOMENICA JARA ([id number])[address] Hematocrit (Bld) [Volume fraction] 24.5 % Low 40.0-52.0 [facility] Comment on above: Performed By: #### L AB294 ####Assisted Living Home Director: DOMENICA JARA ([id number])[facility])[address] [place] [address] Hemoglobin (Bld) [Mass/Vol] 7.8 g/dL Low 13.0-18.0 [facility] Comment on above: Performed By: #### L AB294 ####Assisted Living Home Director: DOMENICA JARA ([id number])[facility] ([facility])[address] [place] [address] MCH (RBC) [Entitic mass] 29.0 pg Normal 26.0-34.0 [facility] Comment on above: Performed By: #### L AB294 ####Assisted Living Home Director: DOMENICA JARA ([id number])[facility])[address] [place] [address] MCHC 31.8 % Normal 30.5-36.0 [facility] Comment on above: Performed By: #### L AB294 ####Assisted Living Home Director: DOMENICA JARA ([id number])[facility] ([facility])[address] [place] [address] MCV (RBC) [Entitic vol] 91.1 fL Normal 77.0-99.0 S [facility] Comment on above: Performed By: #### L AB294 ####Assisted Living Home Director: DOMENICA JARA ([id number])[facility])[address] [place] [address] Platelet mean volume (Bld) [Entitic vol] 8.9 fL Low 9.0-12.7 [facility] Comment on above: Performed By: #### L AB294 ####Assisted Living Home Director: DOMENICA JARA ([id number])[facility])[address] [place] [address] Platelets (Bld) [#/Vol] 282 10*3/uL Normal 140-440 [facility] Comment on above: Performed By: #### L AB294 ####Assisted Living Home Director: DOMENICA JARA ([id number])[facility] ([facility])[address] [place] [address] RBC (Bld) [#/Vol] 2.69 10*6/uL Low 4.40-5.90 [facility] Comment on above: Performed By: #### L AB294 ####Assisted Living Home Director: DOMENICA JARA ([id number])[facility] ([facility])[address] [place] [address] WBC (Bld) [#/Vol] 9.0 10*3/uL Normal 3.6-10.7 [facility] Comment on above: Performed By: #### L AB294 ####Assisted Living Home Director: DOMENICA JARA ([id number])[facility] ([facility])[address] [place] [address] CBC panel Auto (Bld)on 02-22 Erythrocyte distribution width (RBC) [Ratio] 19.4 % High 11.5 - 15.0 % [facility] Hematocrit (Bld) [Volume fraction] 24.5 % Low 40.0 - 52.0 % [facility] Hemoglobin (Bld) [Mass/Vol] 7.8 g/dL Low 13.0 - 18.0 g/dL [facility] Interpretation and review of laboratory results Abnormal [facility] MCH (RBC) [Entitic mass] 29 pg 26. 0 - 34.0 pg [facility] MCHC (RBC) [Mass/Vol] 31.8 % 30.5 - 36.0 % [facility] MCV (RBC) [Entitic vol] 91.1 fL 77.0 - 99.0 fL [facility] Platelet mean volume (Bld) [Entitic vol] 8.9 fL Low 9.0 - 12.7 fL [facility] Platelets (Bld) [#/Vol] 282 10*3/uL 140 - 440 10*3/uL [facility] RBC (Bld) [#/Vol] 2.69 10*6/uL Low 4.40 - 5.9 0 10*6/uL [facility] WBC (Bld) [#/Vol] 9 10*3/uL 3.6 - 10.7 10*3/uL [facility] COMPREHENSIVE METABOLIC PANE Victor M 02-22-2025 Albumin [Mass/Vol] 1.8 g/dL Low 3.5-5.0 [facility] Comment on above: Performed By: #### Tameka KWONG, LAB17, [id number] ####Assisted Living Home Director: DOMENICA JARA ([id number])[facility] [place] [address] ALP [Catalytic activity/Vol] 120 U/L Normal 40-150 [facility] Comment on above: Performed By: #### Tameka KWONG, LAB17, [id number] ####Assisted Living Home Director: DOMENICA JARA ([id number])[facility] ([facility])[address] [place] [address] ALT [Catalytic activity/Vol] 9 U/L Normal <40 [facility] Comment on above: Performed By: #### Tameka KWONG, LAB17, [id number] ####Assisted Living Home Director: DOMENICA JARA ([id number])[facility] ([facility])[address] [place] [address] Anion gap [Moles/Vol] 13 mmol/L Normal 3-13 [facility] Comment on above: Performed By: #### Tameka KWONG, LAB17, [id number] ####Assisted Living Home Director: DOMENICA JARA ([id number])[facility] ([facility])[address] [place] [address] AST [Catalytic activity/Vol] 35 U/L High <34 [facility] Comment on above: Performed By: #### Tameka KWONG, LAB17, [id number] ####Assisted Living Home Director: DOMENICA JARA ([id number])[facility] ([facility])[address] [place] [address] Bilirubin [Mass/Vol] 0.6 mg/dL Normal <1.2 [facility] Comment on above: Performed By: #### Tameka KWONG, LAB17, [id number] ####Assisted Living Home Director: DOMENICA JARA ([id number])[facility] ([facility])[address] [place] [address] Calcium [Mass/Vol] 9.2 mg/dL Normal 8.4-10.2 [facility] Comment on above: Performed By: #### L AB103, LAB17, [id number] ####Assisted Living Home Director: DOMENICA JARA ([id number])[facility])[address] [place] [address] Chloride [Moles/Vol] 94 mmol/L Low 98-107 [facility] Comment on above: Performed By: #### L AB103, LAB17, [id number] ####Assisted Living Home Director: DOMENICA JARA ([id number])[facility] ([facility])[address] [place] [address] CO2 [Moles/Vol] 25 mmol/L Normal 22-29 [facility] Comment on above: Performed By: #### Tameka AB103, LAB17, [id number] ####Assisted Living Home Director: DOMENICA JARA ([id number])[facility])[address] [place] [address] Creatinine [Mass/Vol] 3.99 mg/dL High 0.72-1.25 [facility] Comment on above: Performed By: #### L AB103, LAB17, [id number] ####Assisted Living Home Director: DOMENICA JARA ([phone])[facility])[address] [place] [address] GLOMERULAR FILTRATION RATE ML/MIN/1.73 SQ M.PREDICTED 16.5 mL/min/1.73m*2 Low >60.0 [facility] Comment on above: Result Comment: Calc ulation based on the Chronic Kidney Disease Epidemiology Collaboration (CKD-EPI) equation refit without adjustment for race Performed By: #### L AB103, LAB17, [id number] ####Assisted Living Home Director: DOMENICA JARA ([id number])[facility] ([facility])[address] [place] [address] Glucose [Mass/Vol] 121 mg/dL High 74-100 [facility] Comment on above: Performed By: #### L AB103, LAB17, [id number] ####Assisted Living Home Director: DOMENICA [id number])[facility])[address] [place] [address] Potassium [Moles/Vol] 3.4 mmol/L Low 3.5-5.1 [facility] Comment on above: Result Comment: [facility] potassium values may be up to 0.5 mmol/L lower than serum values. Performed By: #### L AB103, LAB17, [id number] ####Assisted Living Home Director: DOMENICA JARA ([id number])[facility] ([facility])[address] [place] [address] Protein [Mass/Vol] 6.7 g/dL Normal 6.4-8.3 [facility] Comment on above: Performed By: #### L AB103, LAB17, [id number] ####Assisted Living Home Director: DOMENICA JARA ([id number])[facility] ([facility])[address] [place] [address] Sodium [Moles/Vol] 132 mmol/L Low 136-145 [facility] Comment on above: Performed By: #### L AB103, LAB17, [id number] ####Assisted Living Home Director: DOMENICA JARA ([id number])[facility])[address] [place] [address] Urea nitrogen [Mass/Vol] 36 mg/dL High 9-23 [facility] Comment on above: Performed By: #### L AB103, LAB17, [id number] ####Assisted Living Home Director: DOMENICA JARA ([id number])[facility])[address] [place] [address] Comprehensive metabolic 1998 panelOrdered By: Michelle Olmstead on 02-22-2025 Albumin [Mass/Vol] 1.8 g/dL Low 3.5 - 5.0 g/dL [facility] ALP [Catalytic activity/Vol] 120 U/L 40 - 150 U/L [facility] ALT [Catalytic activity/Vol] 9 U/L NINF - 40 U/L [facility] Anion gap [Moles/Vol] 13 mmol/L 3 - 13 mmol/L [facility] AST [Catalytic activity/Vol] 35 U/L High NINF - 34 U/L [facility] Bilirubin [Mass/Vol] 0.6 mg/dL NINF - 1.2 mg/dL [facility] Calcium [Mass/Vol] 9.2 mg/dL 8.4 - 10. 2 mg/dL [facility] Chloride [Moles/Vol] 94 mmol/L Low 98 - 10 7 mmol/L [facility] CO2 [Moles/Vol] 25 mmol/L 22 - 29 mmol/L [facility] Creatinine [Mass/Vol] 3.99 mg/dL High 0.72 - 1.25 mg/dL [facility] GFR/1.73 sq M.predicted (S/P/Bld) [Vol rate/Area] 16.5 mL/min Low - PINF [facility] Glucose [Mass/Vol] 121 mg/dL High 74 - 100 mg/dL [facility] Interpretation and review of laboratory results Abnormal [facility] Potassium [Moles/Vol] 3.4 mmol/L Low 3.5 - 5.1 mmol/L [facility] Protein [Mass/Vol] 6.7 g/dL 6.4 - 8.3 g/dL [facility] Sodium [Moles/Vol] 132 mmol/L Low 136 - 145 mmol/L [facility] Urea nitrogen [Mass/Vol] 36 mg/dL High 9 - 23 mg/d L [facility] Consulton 02-22-2025 Consult Normal [facility] Consult Normal [facility] Consult Normal [facility] LEGIONELLA AND STREPTOCOCCUS URINE ANTIGENon 02-22-2025 LEGIONELLA AND STREPTOCOCCUS URINE ANTIGEN Normal [facility] Comment on above: Performed By: #### L [id number] ####Assisted Living Home Director: DOMENICA JARA ([id number])[address] Laboratory - Chemistry and C hemistry - challengeon 02-22-2025 Magnesium [Mass/Vol] 2.2 mg/dL 1.6 - 2 .6 mg/dL [facility] Laboratory - Coagulationon 0 02-22-2025 PT Coag (Bld) [Time] 14.9 s High 9.0 - 12.0 s [facility] - Drug toxicology on 02-22-2025 Vancomycin [Mass/Vol] 12.6 ug/mL [facility] MAGNESIUMon 02-22-2025 Magnesium [Mass/Vol] 2.2 mg/dL Normal 1.6-2.6 [facility] Comment on above: Result Comment: ORDHuong R COMMENTS:Higher values can be expected in females during menses. Performed By: #### L AB103, LAB17, [id number] ####Assisted Living Home Director: DOMENICA JARA ([id number])[facility] ([facility])[address] [place] [address] [place] MRSA BY PCRon 02-22-2025 MRSA BY PCR Normal [facility] Comment on above: Performed By: #### L [id number] ####Assisted Living Home Director: DOMENICA JARA ([id number])[facility] ([facility])[address] [place] [address] [place] MRSA DNA EMMANUEL+probe Ql (Nose) on 02-22-2025 Interpretation and review of laboratory results Normal [facility] mecA gene Not detected Not Detected [facility] Staphylococcus aureus Not detected Not Detected [facility] Magnesium [Mass/Vol]on 02-22 [facility] No Panel Informationon 02-22 [facility] Interpretation and review of laboratory results Normal [facility] Interpretation and review of laboratory results Abnormal [facility] No Panel InformationOrdered By: Lorin Bryant on 02-22-2025 Interpretation and review of laboratory results Normal [facility] Legionella pneumophila Ag Not detected Not Detected [facility] Streptococcus pneumoniae Ag Not detected Not Detected [facility] Nursing Noteon 02-22-2025 Nursing Note Pt keeps ordering door dash items. Have explained to pt on multiple occasions that staff cannot leave floor to get items and that it is after hours and door dashers most likely will not be allowed up onto the floors. Normal [facility] Nursing Note Normal [facility] Nursing Note Normal [facility] PHOSPHORUSon 02-22-2025 Phosphate [Mass/Vol] 3.2 mg/dL Normal 2.3-4.7 [facility] Comment on above: Performed By: #### L AB103, LAB17, [id number] ####Assisted Living Home Director: DOMENICA JARA ([id number])[facility] [place] [address] [place] PNEUMONIA PCR PANELon 2024 PNEUMONIA PCR PANEL Normal [facility] Comment on above: Performed By: #### Tameka [id number] ####Assisted Living Home Director: DOMENICA JARA ([id number])[address] PROTHROMBIN TIMEon INR Coag (PPP) [Relative time] 1.4 {INR} High 0.9-1.1 [facility] Comment on above: Result Comment: Vaughn mmended [...] Myocardial Infarction Performed By: #### Tameka AB325, [id number] ####Assisted Living Home Director: DOMENICA JARA ([id number])[facility])[address] [place] [address] PT Coag (PPP) [Time] 14.9 s High 9.0-12.0 [facility] Comment on above: Performed By: #### Tameka AB325, [id number] ####Assisted Living Home Director: DOMENICA JARA ([id number])[address] PT Coag (Bld) [Time]on 02-22 INR Coag (PPP) [Relative time] 1.4 {INR} High 0.9 - 1.1 [facility] Phosphate [Moles/Vol]on 01-26 Phosphate [Mass/Vol] 3.2 mg/dL 2.3 - 4 .7 mg/dL [facility] Progress Noteon 02-22-2025 Progress Note Normal [facility] Progress Note Normal [facility] Progress Note Normal [facility] Progress Note OCCUPATIONAL THERAPY [facility] Name/MRN: Jair Snyder ([id number]) Date: 02/22/2025 PT refusing to participate in therapy this AM, will continue to follow and re approach for OT eval. Ro Farnsworth, OT Normal [facility] Progress Note Normal [facility] Progress Note Normal [facility] RESPIRATORY CULTURE AND STAI Non 02-22-2025 RESPIRATORY CULTURE AND STAIN Normal [facility] Comment on above: Performed By: #### L AB900 ####Assisted Living Home Director: DOMENICA JARA ([id number])[facility] ([facility])[address] [place] [address] Respiratory pathogens DNA an d RNA panel EMMANUEL+non-probe (Lower resp)Ordered By: Odalys Bustamante on 02-22-2025 Acinetobacter baumannii complex Not detected Not Detected [facility] Adenovirus Not detected Not Detected [facility] Chlamydia pneumoniae Not detected Not Detected [facility] Enterobacter cloacae complex Not detected Not Detected [facility] Escherichia coli Not detected Not Detected [facility] FLUAV RNA EMMANUEL+non-probe Ql (Lower resp) Not detected Not Detected [facility] FLUBV RNA EMMANUEL+non-probe Ql (Lower resp) Not detected Not Detected [facility] Haemophilus influenzae Not detected Not Detecte d [facility] Human Metapneumovirus Not detected Not Detected [facility] Human Rhinovirus/Enterovirus Not detected Not Detected [facility] Interpretation and review of laboratory results Abnormal [facility] Klebsiella (Enterobacter) aerogenes Not detected Not Detected [facility] Klebsiella oxytoca Detected Abnormal Not Detected [facility] Klebsiella pneumoniae Not detected Not Detected [facility] Legionella pneumophila Not detected Not Detecte d [facility] mecA Not detected Not Detected [facility] Moraxella catarrhalis Not detected Not Detected [facility] Mycoplasma pneumoniae Not detected Not Detected [facility] Parainfluenza virus Not detected Not Detected [facility] Proteus spp Not detected [facility] Not detected Not Detecte d [facility] RSV RNA EMMANUEL+probe Ql (Resp) Not detected Not Detected [facility] S. agalactiae Org specific cx Ql (Vag fld) Not detected Not Detected [facility] ealt SARS-CoV-2 (COVID-19) RNA EMMANUEL+non-probe Ql (Nph) Not detected Not Detected [facility] Serratia marcescens Not detected Not Detected [facility] Staphylococcus aureus Detected Abnormal Not Detected S [facility] Streptococcus pneumoniae Not detected Not Detec yo [facility] Streptococcus pyogenes Not detected Not Detecte d [facility] VANCOMYCIN, RANDOMon 025 VANCOMYCIN 12.6 ug/mL Normal [facility] Comment on above: Result Comment: ARPAN Kaplan COMMENTS:This level is ordered to be drawn 4 hours post- HD. ThanksToxicity is seen at concentrations >80-100 ug/mLTherapeutic (Peak) range: 20-40Therapeutic (Trough) range: 5-10 Performed By: #### L AB40 ####Assisted Living Home Director: DOMENICA JARA ([phone])[facility] ([facility])[address] [place] [address] [place] aPTT Coag (Bld) [Time]on aPTT Coag (PPP) [Time] 52.1 s High 20.0 - 30.5 s [facility] Interpretation and review of laboratory results Abnormal [facility] aPTT Coag (PPP) [Time] 54.9 s High 20.0 - 30.5 s [facility] 30on 02-21-2025 30 Normal [facility] [id number] 02-21-2025 [id number] Has dialysis at facility, [facility]..Benoiti shannan signed by Kaity Sepulveda RN on 02/21/2025 at 12:54 PM Normal [facility] [id number] Normal [facility] 36on 02-21-2025 36 Normal [facility] APTTon 02-21-2025 aPTT Coag (Bld) [Time] 50.3 s High 20.0-30.5 [facility] Comment on above: Result Comment: ARPAN Kaplan COMMENTS:NOTE: The therapeutic time for Heparin anticoagulation, based on Xa activity inhibition, is an APTT of 46-80 seconds. Performed By: #### L AB325 ####Assisted Living Home Director: DOMENICA JARA ([phone])[facility] ([facility])[address] [place] [address] [place] aPTT Coag (Bld) [Time] 32.6 s High 20.0-30.5 [facility] Comment on above: Result Comment: ARPAN R COMMENTS:NOTE: The therapeutic time for Heparin anticoagulation, based on Xa activity inhibition, is an APTT of 46-80 seconds. Performed By: #### L AB325 ####Assisted Living Home Director: DOMENICA JARA ([phone])[facility] ([facility])[address] [place] [address] BLOOD TYPE AND SCREEN GELon 02-21-2025 ABO GROUPING O Normal [facility] Comment on above: Performed By: #### L AB276 ####Assisted Living Home Director: DOMENICA JARA ([phone])[facility] BLOOD [facility]ANK ([facility])[address] [place] [address] RH TYPE IN BLOOD Negative Normal [facility] Comment on above: Performed By: #### L AB276 ####Assisted Living Home Director: DOMENICA JARA ([phone])[facility] BLOOD [facility] ([facility])[address] [place] [address] Blood type and Crossmatch pa freida (Bld)on 02-21-2025 ABO group Nom (Bld) O [facility] Blood group antibody screen GEL Ql Negative [facility] D Ag Ql (RBC) Negative [facility] h [facility] C-REACTIVE PROTEINon 025 CRP [Mass/Vol] 60.3 mg/L High <5.0 [facility] Comment on above: Performed By: #### L AB149, [id number], LAB17, [id number], LSO256 ####Assisted Living Home Director: DOMENICA JARA ([id number])[facility] ([facility])[address] [place] [address] CBC (HEMOGRAM)on 02-21-2025 Erythrocyte distribution width (RBC) [Ratio] 19.0 % High 11.5-15.0 [facility] Comment on above: Performed By: #### L AB294 ####Assisted Living Home Director: DOMENICA JARA ([phone])[facility] ([facility])[address] [place] [address] Hematocrit (Bld) [Volume fraction] 25.7 % Low 40.0-52.0 [facility] Comment on above: Performed By: #### L AB294 ####Assisted Living Home Director: DOMENICA JARA ([phone])[facility])[address] [place] [address] Hemoglobin (Bld) [Mass/Vol] 8.3 g/dL Low 13.0-18.0 [facility] Comment on above: Performed By: #### L AB294 ####Assisted Living Home Director: DOMENICA JARA ([phone])[facility] ([facility])[address] [place] [address] MCH (RBC) [Entitic mass] 29.0 pg Normal 26.0-34.0 [facility] Comment on above: Performed By: #### L AB294 ####Assisted Living Home Director: DOMENICA JARA ([phone])[facility])[address] [place] [address] MCHC 32.3 % Normal 30.5-36.0 [facility] Comment on above: Performed By: #### L AB294 ####Assisted Living Home Director: DOMENICA JARA ([phone])[facility] ([facility])[address] [place] [address] MCV (RBC) [Entitic vol] 89.9 fL Normal 77.0-99.0 S [facility] Comment on above: Performed By: #### L AB294 ####Assisted Living Home Director: DOMENICA JARA ([phone])[facility])[address] [place] [address] Platelet mean volume (Bld) [Entitic vol] 8.9 fL Low 9.0-12.7 [facility] Comment on above: Performed By: #### L AB294 ####Assisted Living Home Director: DOMENICA JARA ([id number])[facility])[address] [place] [address] Platelets (Bld) [#/Vol] 316 10*3/uL Normal 140-440 [facility] Comment on above: Performed By: #### L AB294 ####Assisted Living Home Director: DOMENICA JARA ([id number])[facility] ([facility])[address] [place] [address] RBC (Bld) [#/Vol] 2.86 10*6/uL Low 4.40-5.90 [facility] Comment on above: Performed By: #### L AB294 ####Assisted Living Home Director: DOMENICA JARA ([phone])[facility] ([facility])[address] [place] [address] WBC (Bld) [#/Vol] 7.0 10*3/uL Normal 3.6-10.7 [facility] Comment on above: Performed By: #### L AB294 ####Assisted Living Home Director: DOMENICA JARA ([phone])[facility] ([facility])[address] [place] [address] CBC panel Auto (Bld)on 02-21 Erythrocyte distribution width (RBC) [Ratio] 19 % High 11.5 - 15.0 % [facility] Hematocrit (Bld) [Volume fraction] 25.7 % Low 40.0 - 52.0 % [facility] Hemoglobin (Bld) [Mass/Vol] 8.3 g/dL Low 13.0 - 18.0 g/dL [facility] Interpretation and review of laboratory results Abnormal [facility] MCH (RBC) [Entitic mass] 29 pg 26. 0 - 34.0 pg [facility] MCHC (RBC) [Mass/Vol] 32.3 % 30.5 - 36.0 % [facility] MCV (RBC) [Entitic vol] 89.9 fL 77.0 - 99.0 fL [facility] Platelet mean volume (Bld) [Entitic vol] 8.9 fL Low 9.0 - 12.7 fL [facility] Platelets (Bld) [#/Vol] 316 10*3/uL 140 - 440 10*3/uL [facility] RBC (Bld) [#/Vol] 2.86 10*6/uL Low 4.40 - 5.9 0 10*6/uL [facility] WBC (Bld) [#/Vol] 7 10*3/uL 3.6 - 10.7 10*3/uL [facility] COMPREHENSIVE METABOLIC PANE Victor M 02-21-2025 Albumin [Mass/Vol] 2.0 g/dL Low 3.5-5.0 [facility] Comment on above: Performed By: #### L AB149, [id number], LAB17, EOE580, YVX990 ####Assisted Living Home Director: DOMENICA JARA ([phone])[facility] ([facility])[address] [place] [address] ALP [Catalytic activity/Vol] 120 U/L Normal 40-150 [facility] Comment on above: Performed By: #### L AB149, [id number], LAB17, SIV630, DJU074 ####Assisted Living Home Director: DOMENICA JARA ([phone])[facility] ([facility])[address] [place] [address] ALT [Catalytic activity/Vol] 8 U/L Normal <40 [facility] Comment on above: Performed By: #### L AB149, [id number], LAB17, OLL899, NFD392 ####Assisted Living Home Director: DOMENICA JARA ([phone])[facility] ([facility])[address] [place] [address] Anion gap [Moles/Vol] 12 mmol/L Normal 3-13 [facility] Comment on above: Performed By: #### L AB149, [id number], LAB17, PFK456, DDB748 ####Assisted Living Home Director: DOMENICA JARA ([id number])[facility] ([facility])[address] [place] [address] AST [Catalytic activity/Vol] 39 U/L High <34 [facility] Comment on above: Performed By: #### L AB149, [id number], LAB17, QIV823, CRP538 ####Assisted Living Home Director: DOMENICA JARA ([id number])[facility])[address] [place] [address] Bilirubin [Mass/Vol] 0.8 mg/dL Normal <1.2 [facility] Comment on above: Performed By: #### L AB149, [id number], LAB17, FFJ569, AGT796 ####Assisted Living Home Director: DOMENICA JARA ([id number])[facility] ([facility])[address] [place] [address] Calcium [Mass/Vol] 9.3 mg/dL Normal 8.4-10.2 [facility] Comment on above: Performed By: #### L AB149, [id number], LAB17, ORT380, LSN887 ####Assisted Living Home Director: DOMENICA JARA ([id number])[facility] [place] [address] Chloride [Moles/Vol] 91 mmol/L Low 98-107 [facility] Comment on above: Performed By: #### L AB149, [id number], LAB17, RMK184, JQI842 ####Assisted Living Home Director: DOMENICA JARA ([id number])[facility] ([facility])[address] [place] [address] CO2 [Moles/Vol] 28 mmol/L Normal 22-29 [facility] Comment on above: Performed By: #### L AB149, [id number], LAB17, RFQ671, MIR130 ####Assisted Living Home Director: DOMENICA JARA ([phone])[facility] ([facility])[address] [place] [address] Creatinine [Mass/Vol] 2.89 mg/dL High 0.72-1.25 [facility] Comment on above: Performed By: #### L AB149, [id number], LAB17, KSE680, IZZ735 ####Assisted Living Home Director: DOMENICA JARA ([phone])[facility])[address] [place] [address] GLOMERULAR FILTRATION RATE ML/MIN/1.73 SQ M.PREDICTED 24.3 mL/min/1.73m*2 Low >60.0 [facility] Comment on above: Result Comment: Calc ulation based on the Chronic Kidney Disease Epidemiology Collaboration (CKD-EPI) equation refit without adjustment for race Performed By: #### L AB149, [id number], LAB17, BIS568, IJU513 ####Assisted Living Home Director: DOMENICA JARA ([id number])[facility])[address] [place] [address] Glucose [Mass/Vol] 74 mg/dL Normal 74-100 [facility] Comment on above: Performed By: #### L AB149, [id number], LAB17, ONR566, NGC097 ####Assisted Living Home Director: DOMENICA JARA ([id number])[facility] ([facility])[address] [place] [address] Potassium [Moles/Vol] 3.1 mmol/L Low 3.5-5.1 [facility] Comment on above: Result Comment: [facility] potassium values may be up to 0.5 mmol/L lower than serum values. Performed By: #### L AB149, [id number], LAB17, YXK710, NST058 ####Assisted Living Home Director: DOMENICA JARA ([phone])[facility] ([facility])[address] [place] [address] Protein [Mass/Vol] 6.8 g/dL Normal 6.4-8.3 [facility] Comment on above: Performed By: #### L AB149, [id number], LAB17, KTO653, OIY987 ####Assisted Living Home Director: DOMENICA JARA ([id number])[facility] ([facility])[address] [place] [address] Sodium [Moles/Vol] 131 mmol/L Low 136-145 [facility] Comment on above: Performed By: #### L AB149, [id number], LAB17, FFP609, TUD870 ####Assisted Living Home Director: DOMENICA JARA ([id number])[facility] ([facility])[address] [place] [address] [place] Urea nitrogen [Mass/Vol] 29 mg/dL High 9-23 [facility] Comment on above: Performed By: #### L AB149, [id number], LAB17, VRN201, CBV382 ####Assisted Living Home Director: DOMENICA JARA ([id number])[facility])[address] [place] [address] [place] CRP [Mass/Vol]on 02-21-2025 Interpretation and review of laboratory results Abnormal [facility] Comprehensive metabolic 1998 panelon 02-21-2025 Albumin [Mass/Vol] 2 g/dL Low 3.5 - 5.0 g/dL [facility] ALP [Catalytic activity/Vol] 120 U/L 40 - 150 U/L [facility] ALT [Catalytic activity/Vol] 8 U/L NINF - 40 U/L [facility] Anion gap [Moles/Vol] 12 mmol/L 3 - 13 mmol/L [facility] AST [Catalytic activity/Vol] 39 U/L High NINF - 34 U/L [facility] Bilirubin [Mass/Vol] 0.8 mg/dL NINF - 1.2 mg/dL [facility] Calcium [Mass/Vol] 9.3 mg/dL 8.4 - 10. 2 mg/dL [facility] Chloride [Moles/Vol] 91 mmol/L Low 98 - 10 7 mmol/L [facility] CO2 [Moles/Vol] 28 mmol/L 22 - 29 mmol/L [facility] Creatinine [Mass/Vol] 2.89 mg/dL High 0.72 - 1.25 mg/dL [facility] GFR/1.73 sq M.predicted (S/P/Bld) [Vol rate/Area] 24.3 mL/min Low - PINF [facility] Glucose [Mass/Vol] 74 mg/dL 74 - 100 mg/dL [facility] Potassium [Moles/Vol] 3.1 mmol/L Low 3.5 - 5.1 mmol/L [facility] Protein [Mass/Vol] 6.8 g/dL 6.4 - 8.3 g/dL [facility] Sodium [Moles/Vol] 131 mmol/L Low 136 - 145 mmol/L [facility] Urea nitrogen [Mass/Vol] 29 mg/dL High 9 - 23 mg/d L [facility] Consulton 02-21-2025 Consult Normal [facility] Consult Normal [facility] Consult Normal [facility] Consult Normal [facility] Laboratory - Chemistry and C hemistry - challengeon 02-21-2025 CRP [Mass/Vol] 60.3 mg/L High NINF - 5.0 mg/L [facility] Procalcitonin [Mass/Vol] 0.68 ng/mL High PROSPER F - 0.07 ng/mL [facility] Magnesium [Mass/Vol] 2.2 mg/dL 1.6 - 2 .6 mg/dL [facility] MAGNESIUMon 02-21-2025 Magnesium [Mass/Vol] 2.2 mg/dL Normal 1.6-2.6 [facility] Comment on above: Result Comment: ORDE R COMMENTS:Higher values can be expected in females during menses. Performed By: #### L AB149, [id number], LAB17, EFC764, PCP137 ####Assisted Living Home Director: DOMENICA JARA ([phone])[facility] ([facility])[address] [place] [address] Magnesium [Mass/Vol]on 02-21 Interpretation and review of laboratory results Normal [facility] No Panel Informationon 02-21 Interpretation and review of laboratory results Abnormal [facility] Nursing Noteon 02-21-2025 Nursing Note Pt ordered [employer] food. Assisted pt to sit up on bedside to eat. Normal [facility] Nursing Note Normal [facility] Nursing Note Pt declining scheduled medications until after RN calls facility to see if he is actively taking those medications" per pt request. This RN spoke with RN at [facility] to verify medications that pt is taking. Normal [facility] Nursing Note Normal [facility] Nursing Note Pt removed NC from nose, stated he doesn't need it anymore. Respiratory Therapy came in to give pt, scheduled breathing treatment, pt stated he didn't need one." Normal [facility] Nursing Note Normal [facility] PHOSPHORUSon 02-21-2025 Phosphate [Mass/Vol] 2.0 mg/dL Low 2.3-4.7 [facility] Comment on above: Performed By: #### L AB149, [id number], LAB17, ODF969, UHG834 ####Assisted Living Home Director: DOMENICA JARA ([id number])[facility] ([facility] [place] [address] PROCALCITONIN TESTon 025 PROCALCITONIN 0.68 ng/mL High <0.07 [facility] Comment on above: Result Comment: ORDE R COMMENTS:PCT <0.50 = Low risk of severe sepsis and/or septic shock.PCT >2.00 = High risk of severe sepsis and/or septic shock. Performed By: #### L AB149, [id number], LAB17, MXQ388, BKI219 ####Assisted Living Home Director: DOMENICA JARA ([id number])[facility] ([facility] [place] [address] Phosphate [Moles/Vol]on 01-26 Phosphate [Mass/Vol] 2 mg/dL Low 2.3 - 4 .7 mg/dL [facility] Procalcitonin [Mass/Vol]on 0 02-21-2025 Interpretation and review of laboratory results Abnormal [facility] Progress Noteon 02-21-2025 Progress Note PHYSICAL THERAPY [facility] Name/MRN: Jair Sndyer ([id number]) Date: 02/21/2025 Pt declined to work with therapy at this time, stating he wanted to eat first. Will reattempt at a later date. Sangeeta Sarabia, PT Normal [facility] Progress Note Normal [facility] Progress Note Normal [facility] RESPIRATORY PATHOGENS PANEL BY PCRon 02-21-2025 RESPIRATORY PATHOGENS PANEL BY PCR Normal [facility] Comment on above: Performed By: #### L [id number] ####Assisted Living Home Director: DOMENICA JARA ([id number])[facility] ([facility])[address] [place] [address] Respiratory pathogens DNA an d RNA panel EMMANUEL+non-probe (Nph)on 02-21-2025 Adenovirus Not detected Not Detected [facility] B. pertussis DNA EMMANUEL+probe Ql (Unsp spec) Not detected Not Detected [facility] Bordetella parapertussis Not detected Not Detec yo [facility] Chlamydia pneumoniae Not detected Not Detected [facility] Coronavirus 229E Not detected Not Detected [facility] Coronavirus HKU1 Not detected Not Detected [facility] Coronavirus NL63 Not detected Not Detected [facility] Coronavirus OC43 Not detected Not Detected [facility] FLUAV RNA EMMANUEL+non-probe Ql (Nph) Not detected Not Detected [facility] FLUBV RNA EMMANUEL+non-probe Ql (Nph) Not detected Not Detected [facility] Human Metapneumovirus Not detected Not Detected [facility] Human Rhinovirus/Enterovirus Not detected Not Detected [facility] Interpretation and review of laboratory results Normal [facility] Mycoplasma pneumoniae Not detected Not Detected [facility] Parainfluenza 1 Not detected Not Detected [facility] Parainfluenza 2 Not detected Not Detected [facility] Parainfluenza 3 Not detected Not Detected [facility] Parainfluenza 4 Not detected Not Detected [facility] Respiratory Syncytial Virus Not detected Not Detected [facility] SARS-CoV-2 (COVID-19) RNA EMMANUEL+non-probe Ql (Nph) Not detected Not Detected [facility] aPTT Coag (Bld) [Time]on aPTT Coag (PPP) [Time] 50.3 s High 20.0 - 30.5 s [facility] Interpretation and review of laboratory results Abnormal [facility] aPTT Coag (PPP) [Time] 32.6 s High 20.0 - 30.5 s [facility] Interpretation and review of laboratory results Abnormal [facility] APTTon 02-20-2025 aPTT Coag (Bld) [Time] 26.2 s Normal 20.0-30.5 [facility] Comment on above: Result Comment: ARPAN Kaplan COMMENTS:NOTE: The therapeutic time for Heparin anticoagulation, based on Xa activity inhibition, is an APTT of 46-80 seconds. Performed By: #### L AB320, [id number] ####Assisted Living Home Director: FENG CONSTANTINO ([phone])[facility] ([facility])[address] [place] [address] Absolute lymphocyte countOrd ered By: Kayley Melendrez on 02-20-2025 Lymphocytes Auto (Unsp spec) [#/Vol] 1.13 10*3/uL 0.83-4.51 [facility] Absolute neutrophil countOrd ered By: Kayley Melendrez on 02-20-2025 Neutrophils (Bld) [#/Vol] 4.6 10*3/uL 2.0-7.7 [facility] Anion gap in Serum or Plasma Ordered By: Kayley Melendrez on 02-20-2025 Anion gap [Moles/Vol] 12 mmol/L 5-15 [facility] Automated lymphocyte count a s percentage of total leukocytesOrdered By: Kayley Melendrez on 02-20-2025 Lymphocytes/100 WBC Auto (Unsp spec) 16.4 % Low 19-41 [facility] BASIC METABOLIC PANELon 01-26 Anion gap [Moles/Vol] 12 mmol/L Normal 3-13 [facility] Comment on above: Performed By: #### L AB15 ####Assisted Living Home Director: FENG CONSTANTINO ([id number])[facility] [place] [facility] Calcium [Mass/Vol] 9.6 mg/dL Normal 8.4-10.2 [facility] Comment on above: Performed By: #### L AB15 ####Assisted Living Home Director: FENG CONSTANTINO ([phone])[facility] [place] ([facility])[address] Chloride [Moles/Vol] 92 mmol/L Low 98-107 [facility] Comment on above: Performed By: #### L AB15 ####Assisted Living Home Director: FENG CONSTANTINO ([phone])[facility] [place] ([facility])[address] CO2 [Moles/Vol] 29 mmol/L Normal 22-29 [facility] Comment on above: Performed By: #### L AB15 ####Assisted Living Home Director: FENG CONSTANTINO ([phone])[facility] [place] ([facility])[address] Creatinine [Mass/Vol] 2.57 mg/dL High 0.72-1.25 [facility] Comment on above: Performed By: #### L AB15 ####Assisted Living Home Director: FENG CONSTANTINO ([phone])[facility] [place] ([facility])[address] GLOMERULAR FILTRATION RATE ML/MIN/1.73 SQ M.PREDICTED 27.9 mL/min/1.73m*2 Low >60.0 [facility] Comment on above: Result Comment: Calc ulation based on the Chronic Kidney Disease Epidemiology Collaboration (CKD-EPI) equation refit without adjustment for race Performed By: #### L AB15 ####Assisted Living Home Director: FENG CONSTANTINO ([phone])[facility] [place] ([facility])[address] Glucose [Mass/Vol] 80 mg/dL Normal 74-100 [facility] Comment on above: Performed By: #### L AB15 ####Assisted Living Home Director: FENG CONSTANTINO ([phone])[facility] [facility] [place] (SBHLAB)[address] Potassium [Moles/Vol] 3.1 mmol/L Low 3.5-5.1 [facility] Comment on above: Result Comment: [facility] potassium values may be up to 0.5 mmol/L lower than serum values. Performed By: #### L AB15 ####Assisted Living Home Director: FENG CONSTANTINO ([phone])[facility] [place] (HLAB)[address] Sodium [Moles/Vol] 133 mmol/L Low 136-145 [facility] Comment on above: Performed By: #### L AB15 ####Assisted Living Home Director: FENG CONSTANTINO ([phone])[facility] (SB[facility]AB)[address] Urea nitrogen [Mass/Vol] 29 mg/dL High 9-23 [facility] Comment on above: Performed By: #### L AB15 ####Assisted Living Home Director: FENG CONSTANTINO ([phone])[facility] [place] (SBHLAB)[address] BUN/creatinine ratioOrdered By: Kayley Melendrez on 02-20-2025 Urea nitrogen/Creatinine [Mass ratio] 11.5 mg/mg 10-20 [facility] Basic metabolic 1998 panelon 02-20-2025 Anion gap [Moles/Vol] 12 mmol/L 3 - 13 mmol/L [facility] Calcium [Mass/Vol] 9.6 mg/dL 8.4 - 10. 2 mg/dL [facility] Chloride [Moles/Vol] 92 mmol/L Low 98 - 10 7 mmol/L [facility] CO2 [Moles/Vol] 29 mmol/L 22 - 29 mmol/L [facility] Creatinine [Mass/Vol] 2.57 mg/dL High 0.72 - 1.25 mg/dL [facility] GFR/1.73 sq M.predicted (S/P/Bld) [Vol rate/Area] 27.9 mL/min Low - PINF [facility] Glucose [Mass/Vol] 80 mg/dL 74 - 100 mg/dL [facility] Interpretation and review of laboratory results Abnormal [facility] Potassium [Moles/Vol] 3.1 mmol/L Low 3.5 - 5.1 mmol/L [facility] Sodium [Moles/Vol] 133 mmol/L Low 136 - 145 mmol/L [facility] Urea nitrogen [Mass/Vol] 29 mg/dL High 9 - 23 mg/d L [facility] Basophil percentageOrdered B y: Kayley Melendrez on 02-20-2025 Basophils/100 WBC (Bld) 1.4 % High 0-1 [facility] Bilirubin, totalOrdered By: Kayley Melendrez on 02-20-2025 Bilirubin [Mass/Vol] 0.64 mg/dL 0.00-1.30 [facility] CBC (HEMOGRAM)on 02-20-2025 Erythrocyte distribution width (RBC) [Ratio] 18.8 % High 11.5-15.0 [facility] Comment on above: Performed By: #### L AB294 ####Assisted Living Home Director: FENG CONSTANTINO ([phone])[facility] [place] (SBHLAB)[address] Hematocrit (Bld) [Volume fraction] 26.8 % Low 40.0-52.0 [facility] Comment on above: Performed By: #### L AB294 ####Assisted Living Home Director: FENG CONSTANTINO ([phone])[facility] [place] (SBHLAB)[address] Hemoglobin (Bld) [Mass/Vol] 8.7 g/dL Low 13.0-18.0 [facility] Comment on above: Performed By: #### L AB294 ####Assisted Living Home Director: FENG CONSTANTINO ([phone])[facility] [place] (SBHLAB)[address] MCH (RBC) [Entitic mass] 28.7 pg Normal 26.0-34.0 [facility] Comment on above: Performed By: #### L AB294 ####Assisted Living Home Director: FENG CONSTANTINO ([phone])[facility] [place] (SBHLAB)[address] MCHC 32.5 % Normal 30.5-36.0 [facility] Comment on above: Performed By: #### L AB294 ####Assisted Living Home Director: FENG CONSTANTINO ([phone])[facility] [place] (SBHLAB)[address] MCV (RBC) [Entitic vol] 88.4 fL Normal 77.0-99.0 [facility] Comment on above: Performed By: #### L AB294 ####Assisted Living Home Director: FENG CONSTANTINO ([phone])[facility] [place] (SBHLAB)[address] Platelet mean volume (Bld) [Entitic vol] 8.5 fL Low 9.0-12.7 [facility] Comment on above: Performed By: #### L AB294 ####Assisted Living Home Director: FENG CONSTANTINO ([id number])[facility] [place] (SBHLAB)[address] [place] [address] [place] Platelets (Bld) [#/Vol] 312 10*3/uL Normal 140-440 [facility] Comment on above: Performed By: #### L AB294 ####Assisted Living Home Director: FENG CONSTANTINO ([id number])[facility] [place] (SBHLAB)[address] RBC (Bld) [#/Vol] 3.03 10*6/uL Low 4.40-5.90 [facility] Comment on above: Performed By: #### L AB294 ####Assisted Living Home Director: FENGLINO VILLAGOMEZMitzyGEORGE ([phone])[facility] [place] (SBHLAB)[address] WBC (Bld) [#/Vol] 9.4 10*3/uL Normal 3.6-10.7 [facility] Comment on above: Performed By: #### L AB294 ####Assisted Living Home Director: FENG CONSTANTINO ([phone])[facility] [place] (SBHLAB)[address] [place], [place] [id number] [place] [address] CBC W/Diff, Automatedon 05- Absolute Lymph 1.13 X10 3/uL Normal 0.83-4.51 [facility] Comment on above: Order Comment: 412.2 Performed By: #### L 100.0100, L500.4050, L300.3900 #### [facility] [address] [place], [address] Absolute Neut 4.6 X10 3/uL Normal 2.0-7.7 [facility] Comment on above: Order Comment: 412.2 Performed By: #### L 100.0100, L500.4050, L300.3900 #### [facility] [address] [place], [address] Basophils/100 WBC (Bld) 1.4 % High 0-1 [facility] Comment on above: Order Comment: 412.2 Performed By: #### L 100.0100, L500.4050, L300.3900 #### [facility] [address] [place], [address] Eosinophils/100 WBC (Bld) 2.5 % Normal 0-5 [facility] Comment on above: Order Comment: 412.2 Performed By: #### L 100.0100, L500.4050, L300.3900 #### [facility] [address] [place], [address] Erythrocyte distribution width (RBC) [Ratio] 19.4 % High 11.6-14.6 [facility] Comment on above: Order Comment: 412.2 Performed By: #### L 100.0100, L500.4050, L300.3900 #### [facility] [address] [place], [address] Hematocrit (Bld) [Volume fraction] 25.9 % Low 40-54 [facility] Comment on above: Order Comment: 412.2 Performed By: #### L 100.0100, L500.4050, L300.3900 #### [facility] [address] [place], [address] Hemoglobin (Bld) [Mass/Vol] 8.5 g/dL Low 13.0-16.5 [facility] Comment on above: Order Comment: 412.2 Performed By: #### L 100.0100, L500.4050, L300.3900 #### [facility] [address] [place], [address] IG% 0.400 Normal 0.0-0.9 [facility] Comment on above: Order Comment: 412.2 Result Comment: IG% - Immature Granulocytes (promyelocytes, myelocytes and metamyelocytes) > 1% indicates that a LEFT SHIFT is Present. Performed By: #### L 100.0100, L500.4050, L300.3900 #### [facility] [address] [place], [address] Lymphocytes/100 WBC (Bld) 16.4 % Low 19-41 [facility] Comment on above: Order Comment: 412.2 Performed By: #### L 100.0100, L500.4050, L300.3900 #### [facility] [address] [place], [address] MCH (RBC) [Entitic mass] 30.1 pg Normal 27.0-32.0 [facility] Comment on above: Order Comment: 412.2 Performed By: #### L 100.0100, L500.4050, L300.3900 #### [facility] [address] [place], [address] MCHC (RBC) [Mass/Vol] 32.8 g/dL Normal 32-36 [facility] Comment on above: Order Comment: 412.2 Performed By: #### L 100.0100, L500.4050, L300.3900 #### [facility] [address] [place], [address] MCV (RBC) [Entitic vol] 91.8 fL Normal 80-94 [facility] Comment on above: Order Comment: 412.2 Performed By: #### L 100.0100, L500.4050, L300.3900 #### [facility] [address] [place], [address] Monocytes/100 WBC (Bld) 12.0 % High 0-10 [facility] Comment on above: Order Comment: 412.2 Performed By: #### L 100.0100, L500.4050, L300.3900 #### [facility] [address] [place], [address] Neutrophils/100 WBC (Bld) 67.3 % Normal 47-70 [facility] Comment on above: Order Comment: 412.2 Performed By: #### L 100.0100, L500.4050, L300.3900 #### [facility] [address] [place], [address] Nucleated RBC (Bld) [#/Vol] 0 10*3/uL Normal 0-5 [facility] Comment on above: Order Comment: 412.2 Performed By: #### L 100.0100, L500.4050, L300.3900 #### [facility] [address] [place], [address] Platelet mean volume (Bld) [Entitic vol] 9.0 fL Normal 6.2-12.0 [facility] Comment on above: Order Comment: 412.2 Performed By: #### L 100.0100, L500.4050, L300.3900 #### [facility] [address] [place], [address] Platelets (Bld) [#/Vol] 322 10*3/uL Normal 150-450 [facility] Comment on above: Order Comment: 412.2 Performed By: #### L 100.0100, L500.4050, L300.3900 #### [facility] [address] [place], [address] RBC (Bld) [#/Vol] 2.82 10*6/uL Low 4.6-6.2 [facility] Comment on above: Order Comment: 412.2 Performed By: #### L 100.0100, L500.4050, L300.3900 #### [facility] [address] [place], [address] RDW SD 63.5 fl High 35.1-43.9 [facility] Comment on above: Order Comment: 412.2 Performed By: #### L 100.0100, L500.4050, L300.3900 #### [facility] [address] [place], [address] WBC (Bld) [#/Vol] 6.9 10*3/uL Normal 4.4-11.0 [facility] Comment on above: Order Comment: 412.2 Performed By: #### L 100.0100, L500.4050, L300.3900 #### [facility] [address] [place], [address] CBC panel Auto (Bld)on 02-20 Erythrocyte distribution width (RBC) [Ratio] 18.8 % High 11.5 - 15.0 % [facility] Hematocrit (Bld) [Volume fraction] 26.8 % Low 40.0 - 52.0 % [facility] Hemoglobin (Bld) [Mass/Vol] 8.7 g/dL Low 13.0 - 18.0 g/dL [facility] Interpretation and review of laboratory results Abnormal [facility] MCH (RBC) [Entitic mass] 28.7 pg 26. 0 - 34.0 pg [facility] MCHC (RBC) [Mass/Vol] 32.5 % 30.5 - 36.0 % [facility] MCV (RBC) [Entitic vol] 88.4 fL 77.0 - 99.0 fL [facility] Platelet mean volume (Bld) [Entitic vol] 8.5 fL Low 9.0 - 12.7 fL [facility] Platelets (Bld) [#/Vol] 312 10*3/uL 140 - 440 10*3/uL [facility] RBC (Bld) [#/Vol] 3.03 10*6/uL Low 4.40 - 5.9 0 10*6/uL [facility] WBC (Bld) [#/Vol] 9.4 10*3/uL 3.6 - 10.7 10*3/uL [facility] CT CHEST ANGIOGRAM W AND/OR WO IV CONTRASTon 02-20-2025 CT CHEST ANGIOGRAM W AND/OR WO IV CONTRAST Normal [facility] CTA Chest vessels WO and W c ontrast Dimitrios 02-20-2025 [facility] RADIOLOGY [facility] Radiology Study observation (narrative) [facility] CTA Chest vessels WO and W c ontrast IVOrdered By: Justo Milan on 02-20-2025 [facility] Work Phone: Carbon dioxide, total [Moles /volume] in Central venous bloodOrdered By: Kayley Melendrez on 02-20-2025 CO2 [Moles/Vol] 30.1 mmol/L 21.0-32.0 [facility] Chloride assayOrdered By: Carmen Melendrez on 02-20-2025 Chloride [Moles/Vol] 91 mmol/L Low 98-108 [facility] Comprehensive Metabolic Prof ilon 02-20-2025 Albumin [Mass/Vol] 3.0 g/dL Low 3.5-5.0 [facility] Comment on above: Order Comment: 412.2 Performed By: #### L 100.0100, L500.4050, L300.3900 #### [facility] [address] [place], [address] Albumin/Globulin [Mass ratio] 0.8 {ratio} Low 0.9-2.4 [facility] Comment on above: Order Comment: 412.2 Performed By: #### L 100.0100, L500.4050, L300.3900 #### [facility] [address] [place], [address] ALK PHOS 133 U/L High 40-129 [facility] Comment on above: Order Comment: 412.2 Performed By: #### L 100.0100, L500.4050, L300.3900 #### [facility] [address] [place], [address] ALT [Catalytic activity/Vol] 13 U/L Normal <=46 [facility] Comment on above: Order Comment: 412.2 Performed By: #### L 100.0100, L500.4050, L300.3900 #### [facility] [address] [place], [address] AST [Catalytic activity/Vol] 32 U/L Normal <=37 [facility] Comment on above: Order Comment: 412.2 Performed By: #### L 100.0100, L500.4050, L300.3900 #### [facility] [address] [place], [address] Bilirubin [Mass/Vol] 0.64 mg/dL Normal 0.00-1.30 [facility] Comment on above: Order Comment: 412.2 Performed By: #### L 100.0100, L500.4050, L300.3900 #### [facility] [address] [place], [address] BUN/CRE 11.5 RATIO Normal 10-20 [facility] Comment on above: Order Comment: 412.2 Performed By: #### L 100.0100, L500.4050, L300.3900 #### [facility] [address] [place], [address] Calcium [Mass/Vol] 9.8 mg/dL Normal 7.6-11.0 [facility] Comment on above: Order Comment: 412.2 Performed By: #### L 100.0100, L500.4050, L300.3900 #### [facility] [address] [place], [address] Chloride [Moles/Vol] 91 mmol/L Low 98-108 [facility] Comment on above: Order Comment: 412.2 Performed By: #### L 100.0100, L500.4050, L300.3900 #### [facility] [address] [place], [address] CO2 [Moles/Vol] 30.1 mmol/L Normal 21.0-32.0 [facility] Comment on above: Order Comment: 412.2 Performed By: #### L 100.0100, L500.4050, L300.3900 #### [facility] [address] [place], [address] Creatinine [Mass/Vol] 3.87 mg/dL High 0.70-1.20 [facility] Comment on above: Order Comment: 412.2 Performed By: #### L 100.0100, L500.4050, L300.3900 #### [facility] [address] [place], [address] GAP 12 Normal 5-15 [facility] Comment on above: Order Comment: 412.2 Performed By: #### L 100.0100, L500.4050, L300.3900 #### [facility] [address] [place], [address] GFR/1.73 sq M.predicted among non-blacks MDRD (S/P/Bld) [Vol rate/Area] 17 mL/min/{1.73_m2} Low >60 [facility] Comment on above: Order Comment: 412.2 Result Comment: mL/m in/1.73m2 CKD-EPI Creatinine Equation (2020) Performed By: #### L 100.0100, L500.4050, L300.3900 #### [facility] [address] [place], [address] Globulin (S) [Mass/Vol] 4.0 g/dL Normal 2.2-4.2 [facility] Comment on above: Order Comment: 412.2 Performed By: #### L 100.0100, L500.4050, L300.3900 #### [facility] [address] [place], [address] Glucose [Mass/Vol] 78 mg/dL Normal 70-99 [facility] Comment on above: Order Comment: 412.2 Performed By: #### L 100.0100, L500.4050, L300.3900 #### [facility] [address] [place], [address] Potassium [Moles/Vol] 3.0 mmol/L Low 3.3-5.1 [facility] Comment on above: Order Comment: 412.2 Performed By: #### L 100.0100, L500.4050, L300.3900 #### [facility] [address] [place], [address] Sodium [Moles/Vol] 134 mmol/L Normal 133-145 [facility] Comment on above: Order Comment: 412.2 Performed By: #### L 100.0100, L500.4050, L300.3900 #### [facility] [address] [place], [address] T PROT 6.9 g/dL Normal 5.9-8.4 [facility] Comment on above: Order Comment: 412.2 Performed By: #### L 100.0100, L500.4050, L300.3900 #### [facility] [address] [place], [address] Urea nitrogen [Mass/Vol] 44 mg/dL High 4-19 [facility] Comment on above: Order Comment: 412.2 Performed By: #### L 100.0100, L500.4050, L300.3900 #### [facility] [address] [place], [place], [id number] ED Nursing Noteon 02-20-2025 ED Nursing Note Called report to 3W nurse who will be taking over pt care. Normal [facility] ED Nursing Note Attempted to reposition pt and have him sit up but pt states "he feels fine and does not want to sit up"despite coughing up blood. Normal [facility] ED Nursing Note Pt placed on 2L NC due to O2 saturation of 90%. Currently 97 on 2L Normal [facility] ED Nursing Note Suction turned on at this time for pt due to increased coughing up of blood Normal [facility] ED Nursing Note Normal [facility] ED Nursing Note Normal [facility] ED Provider Noteon ED Provider Note Normal [facility] Eosinophil percentageOrdered By: Kayley Melendrez on 02-20-2025 Eosinophils/100 WBC (Bld) 2.5 % 0-5 [facility] Erythrocyte distribution wid th ratioOrdered By: Kayley Melendrez on 02-20-2025 Erythrocyte distribution width (RBC) [Ratio] 19.4 % High 11.6-14.6 [facility] Erythrocyte distribution wid th standard deviationOrdered By: Kayley Melendrez on 02-20-2025 Erythrocyte distribution width (RBC) [Ratio] 63.5 fl High 35.1-43.9 [facility] Glomerular filtration rate ( GFR) estimation/1.73 sq m using serum, plasma, or whole bOrdered By: Kayley Melendrez on 02-20-2025 GFR/1.73 sq M.predicted among non-blacks MDRD (S/P/Bld) [Vol rate/Area] 17 mL/min/{1.73_m2} Low >60 [facility] Comment on above: mL/min/1.73m2 CKD-EP I Creatinine Equation (2020) Hematocrit Auto (Bld) [Volum e fraction]Ordered By: Kayley Melendrez on 02-20-2025 Hematocrit (Bld) [Volume fraction] 25.9 % Low 40-54 [facility] Hemoglobin measurementOrdere d By: Kayley Melendrez on 02-20-2025 Hemoglobin (Bld) [Mass/Vol] 8.5 g/dL Low 13.0-16.5 [facility] Immature granulocytes/100 WB C Auto (Bld)Ordered By: Kayley Melendrez on 02-20-2025 Immature granulocytes/100 WBC (Bld) 0.400 % 0.0-0.9 [facility] Comment on above: IG% - Immature Granu locytes (promyelocytes, myelocytes and metamyelocytes) > 1% indicates that a LEFT SHIFT is Present. International normalized rat io (INR) calculationOrdered By: Kayley Melendrez on 02-20-2025 INR Coag (Bld) [Relative time] 1.4 {INR} [facility] - Chemistry and C hemistry - challengeOrdered By: Kayley Melendrez on 02-20-2025 AST [Catalytic activity/Vol] 32 U/L <38 [facility] - Coagulationon 0 02-20-2025 PT Coag (Bld) [Time] 14.7 s High 9.0 - 12.0 s [facility] MCV (mean corpuscular volume ) determinationOrdered By: Kayley Melendrez on 02-20-2025 MCV (RBC) [Entitic vol] 91.8 fL 80-94 [facility] Mean corpuscular hemoglobin (MCH) determinationOrdered By: Kayley Melendrez on 02-20-2025 MCH (RBC) [Entitic mass] 30.1 pg 27.0-32.0 [facility] Mean corpuscular hemoglobin concentration (MCHC) determinationOrdered By: Kayley Melendrez on 02-20-2025 MCHC (RBC) [Mass/Vol] 32.8 g/dL 32-36 [facility] Mean platelet volume determi nationOrdered By: Kayley Melendrez on 02-20-2025 Platelet mean volume (Bld) [Entitic vol] 9.0 fL 6.2-12.0 [facility] Monocyte percentageOrdered B y: Kayley Melendrez on 02-20-2025 Monocytes/100 WBC (Bld) 12.0 % High 0-10 [facility] Neutrophil percentageOrdered By: [facility] Goodenhortensesamson on 02-20-2025 Neutrophils/100 WBC (Bld) 67.3 % 47-70 [facility] No Panel Informationon 02-20 [facility] Nucleated red blood cell per centageOrdered By: Kayley Melendrez on 02-20-2025 Nucleated RBC/100 WBC (Bld) [Ratio] 0 % 0-5 [facility] Nursing Noteon 02-20-2025 Nursing Note Pt arrived on floor via [employer] Normal [facility] PROTHROMBIN TIMEon INR Coag (PPP) [Relative time] 1.4 {INR} High 0.9-1.1 [facility] Comment on above: Result Comment: Vaughn mmended [...] Myocardial Infarction Performed By: #### L AB320, [id number] ####Assisted Living Home Director: FENG CONSTANTINO ([phone])[facility] CINDY ([facility])[address] [place] [address] PT Coag (PPP) [Time] 14.7 s High 9.0-12.0 [facility] Comment on above: Performed By: #### L AB320, [id number] ####Assisted Living Home Director: FENG CONSTANTINO ([phone])[facility] CINDY (SBHLAB)[address] [place] [address] [facility] PT Coag (Bld) [Time]on 02-20 INR Coag (PPP) [Relative time] 1.4 {INR} High 0.9 - 1.1 [facility] Interpretation and review of laboratory results Abnormal [facility] Platelet countOrdered By: Carmen Melendrez on 02-20-2025 Platelets (Bld) [#/Vol] 322 10*3/uL 150-450 [facility] Potassium measurement (mass/ volume)Ordered By: Kayley Melendrez on 02-20-2025 Potassium (Unsp spec) [Mass/Vol] 3.0 mmol/L Low 3.3-5.1 [facility] Prothrombin Time w/INRon INR Coag (PPP) [Relative time] 1.4 {INR} Normal [facility] Comment on above: Order Comment: 412.2 Performed By: #### L 100.0100, L500.4050, L300.3900 #### [facility] [address] [place], [address] PT Coag (PPP) [Time] 17.5 s High 11.7-14.9 [facility] Comment on above: Order Comment: 412.2 Performed By: #### L 100.0100, L500.4050, L300.3900 #### [facility] [address] [place], [address] Prothrombin timeOrdered By: Kayley Melendrez on 02-20-2025 PT Coag (PPP) [Time] 17.5 s High 11.7-14.9 [facility] RBC Auto (Bld) [#/Vol]Ordere d By: Kayley Melendrez on 02-20-2025 RBC (Bld) [#/Vol] 2.82 10*6/uL Low 4.6-6.2 [facility] Serum creatinine measurement (mass/volume)Ordered By: Kayley Melendrez on 02-20-2025 Creatinine [Mass/Vol] 3.87 mg/dL High 0.70-1.20 [facility] Serum globulin measurementOr dered By: Kayley Melendrez on 02-20-2025 Globulin (S) [Mass/Vol] 4.0 g/dL 2.2-4.2 [facility] Serum glucose measurement (m ass/volume)Ordered By: Kayley Melendrez on 02-20-2025 Glucose [Mass/Vol] 78 mg/dL 70-99 [facility] Serum or plasma alanine mayorga otransferase (ALT) measurementOrdered By: Kayley Melendrez on 02-20-2025 ALT [Catalytic activity/Vol] 13 U/L <47 [facility] Serum or plasma albumin audrey urement (mass/volume)Ordered By: Kayley Melendrez on 02-20-2025 Albumin [Mass/Vol] 3.0 g/dL Low 3.5-5.0 [facility] Serum or plasma albumin/glob ulin mass ratioOrdered By: Kayley Melendrez on 02-20-2025 Albumin/Globulin [Mass ratio] 0.8 {ratio} Low 0.9-2.4 [facility] Serum or plasma alkaline jacob sphatase measurementOrdered By: Kayley Melendrez on 02-20-2025 ALP [Catalytic activity/Vol] 133 U/L High 40-129 [facility] Serum or plasma calcium audrey urement (mass/volume)Ordered By: Kayley Melendrez on 02-20-2025 Calcium [Mass/Vol] 9.8 mg/dL 7.6-11.0 [facility] Serum or plasma urea nitroge n measurement (mass/volume)Ordered By: Kayley Melendrez on 02-20-2025 Urea nitrogen [Mass/Vol] 44 mg/dL High 4-19 [facility] Sodium levelOrdered By: Omega Dawsona on 02-20-2025 Sodium [Moles/Vol] 134 mmol/L 133-145 [facility] Total proteinOrdered By: Lexis ledesmajeff Parvin on 02-20-2025 Protein [Mass/Vol] 6.9 g/dL 5.9-8.4 [facility] White blood cell (WBC) count Ordered By: Kayley Melendrez on 02-20-2025 WBC (Bld) [#/Vol] 6.9 10*3/uL 4.4-11.0 [facility] aPTT Coag (Bld) [Time]on aPTT Coag (PPP) [Time] 26.2 s 20.0 - 30.5 s [facility] Interpretation and review of laboratory results Normal [facility] International normalized rat io (INR) calculationOrdered By: Kayley Melendrez on 02-15-2025 INR Coag (Bld) [Relative time] 1.3 {INR} [facility] [facility] Time w/INRon INR Coag (PPP) [Relative time] 1.3 {INR} Normal [facility] Comment on above: Order Comment: 412.2 Performed By: #### L 100.0100, L500.4050, L300.3900 #### [facility] [address] [place], [address] PT Coag (PPP) [Time] 16.6 s High 11.7-14.9 [facility] Comment on above: Order Comment: 412.2 Performed By: #### L 100.0100, L500.4050, L300.3900 #### [facility] [address] [place], [address] Prothrombin timeOrdered By: Kayley Melendrez on 02-15-2025 PT Coag (PPP) [Time] 16.6 s High 11.7-14.9 [facility] Progress Noteon 02-14-2025 Progress Note Patient completed 6 week course of Amp-Sulbactam on 02/13/25 for sacral osteomyelitis. Tunneled line has since been removed. Continue to monitor off antibiotics at this time. Continue wound care. Normal [facility] normalized rat io (INR) measurement by fingerstickOrdered By: Kayley Melendrez on 02-13-2025 INR Coag (BldC) [Relative time] 1.7 [facility] Comment on above: Critical Value > 4.0 Protime w/INR Fingerstickon 02-13-2025 INR Coag (PPP) [Relative time] 1.7 {INR} Normal [facility] Comment on above: Result Comment: Crit ical Value > 4.0 Performed By: #### L 9200.0000 #### [facility] [address] [place], [place], [id number] Protime Coagsen 19.1 SEC High 11.7-14.9 [facility] Comment on above: Performed By: #### L 9200.0000 #### [facility] [address] [place], [place], [id number] Whole blood prothrombin time Ordered By: Kayley Melendrez on 02-13-2025 PT Coag (Bld) [Time] 19.1 s High 11.7-14.9 [facility] Absolute lymphocyte countOrd ered By: Kayley Melendrez on 02-12-2025 Lymphocytes Auto (Unsp spec) [#/Vol] 1.29 10*3/uL 0.83-4.51 [facility] Absolute neutrophil countOrd ered By: [facility] on 02-12-2025 Neutrophils (Bld) [#/Vol] 4.7 10*3/uL 2.0-7.7 [facility] Anion gap in Serum or Plasma Ordered By: Kayley Melendrez on 02-12-2025 Anion gap [Moles/Vol] 12 mmol/L 5-15 [facility] Automated lymphocyte count a s percentage of total leukocytesOrdered By: Kayley Melendrez on 02-12-2025 Lymphocytes/100 WBC Auto (Unsp spec) 17.7 % Low 19-41 [facility] BUN/creatinine ratioOrdered By: Kayley Melendrez on 02-12-2025 Urea nitrogen/Creatinine [Mass ratio] 10.3 mg/mg 10-20 [facility] Basophil percentageOrdered B y: Kayley Melendrez on 02-12-2025 Basophils/100 WBC (Bld) 1.1 % High 0-1 [facility] Bilirubin, totalOrdered By: Kayley Melendrez on 02-12-2025 Bilirubin [Mass/Vol] 0.69 mg/dL 0.00-1.30 [facility] CBC W/Diff, Automatedon 01-25 Absolute Lymph 1.29 X10 3/uL Normal 0.83-4.51 [facility] Comment on above: Performed By: #### L 100.0100, L500.4050, L300.3900 #### [facility] [address] [place], [address] Absolute Neut 4.7 X10 3/uL Normal 2.0-7.7 [facility] Comment on above: Performed By: #### L 100.0100, L500.4050, L300.3900 #### [facility] [address] [place], [address] Basophils/100 WBC (Bld) 1.1 % High 0-1 [facility] Comment on above: Performed By: #### L 100.0100, L500.4050, L300.3900 #### [facility] [address] [place], [address] Eosinophils/100 WBC (Bld) 4.7 % Normal 0-5 [facility] Comment on above: Performed By: #### L 100.0100, L500.4050, L300.3900 #### [facility] [address] [place], [address] Erythrocyte distribution width (RBC) [Ratio] 18.3 % High 11.6-14.6 [facility] Comment on above: Performed By: #### L 100.0100, L500.4050, L300.3900 #### [facility] [address] [place], [address] Hematocrit (Bld) [Volume fraction] 24.6 % Low 40-54 [facility] Comment on above: Performed By: #### L 100.0100, L500.4050, L300.3900 #### [facility] [address] [place], [address] Hemoglobin (Bld) [Mass/Vol] 8.0 g/dL Low 13.0-16.5 [facility] Comment on above: Performed By: #### L 100.0100, L500.4050, L300.3900 #### [facility] [address] [place], [address] IG% 0.500 Normal 0.0-0.9 [facility] Comment on above: Result Comment: IG% - Immature Granulocytes (promyelocytes, myelocytes and metamyelocytes) > 1% indicates that a LEFT SHIFT is Present. Performed By: #### L 100.0100, L500.4050, L300.3900 #### [facility] [address] [place], [address] Lymphocytes/100 WBC (Bld) 17.7 % Low 19-41 [facility] Comment on above: Performed By: #### L 100.0100, L500.4050, L300.3900 #### [facility] [address] [place], [address] MCH (RBC) [Entitic mass] 29.3 pg Normal 27.0-32.0 [facility] Comment on above: Performed By: #### L 100.0100, L500.4050, L300.3900 #### [facility] [address] [place], [address] MCHC (RBC) [Mass/Vol] 32.5 g/dL Normal 32-36 [facility] Comment on above: Performed By: #### L 100.0100, L500.4050, L300.3900 #### [facility] [address] [place], [address] MCV (RBC) [Entitic vol] 90.1 fL Normal 80-94 [facility] Comment on above: Performed By: #### L 100.0100, L500.4050, L300.3900 #### [facility] [address] [place], [address] Monocytes/100 WBC (Bld) 11.9 % High 0-10 [facility] Comment on above: Performed By: #### L 100.0100, L500.4050, L300.3900 #### [facility] [address] [place], [address] Neutrophils/100 WBC (Bld) 64.1 % Normal 47-70 [facility] Comment on above: Performed By: #### L 100.0100, L500.4050, L300.3900 #### [facility] [address] [place], [address] Nucleated RBC (Bld) [#/Vol] 0 10*3/uL Normal 0-5 [facility] Comment on above: Performed By: #### L 100.0100, L500.4050, L300.3900 #### [facility] [address] [place], [address] Platelet mean volume (Bld) [Entitic vol] 9.2 fL Normal 6.2-12.0 [facility] Comment on above: Performed By: #### L 100.0100, L500.4050, L300.3900 #### [facility] [address] [place], [address] Platelets (Bld) [#/Vol] 294 10*3/uL Normal 150-450 [facility] Comment on above: Performed By: #### L 100.0100, L500.4050, L300.3900 #### [facility] [address] [place], [address] RBC (Bld) [#/Vol] 2.73 10*6/uL Low 4.6-6.2 [facility] Comment on above: Performed By: #### L 100.0100, L500.4050, L300.3900 #### [facility] [address] [place], [address] RDW SD 59.4 fl High 35.1-43.9 [facility] Comment on above: Performed By: #### L 100.0100, L500.4050, L300.3900 #### [facility] [address] [place], [address] WBC (Bld) [#/Vol] 7.3 10*3/uL Normal 4.4-11.0 [facility] Comment on above: Performed By: #### L 100.0100, L500.4050, L300.3900 #### [facility] [address] [place], [address] Carbon dioxide, total [Moles /volume] in Central venous bloodOrdered By: Kayley Melendrez on 02-12-2025 CO2 [Moles/Vol] 28.4 mmol/L 21.0-32.0 [facility] Chloride assayOrdered By: Carmen Melendrez on 02-12-2025 Chloride [Moles/Vol] 91 mmol/L Low 98-108 [facility] Comprehensive Metabolic Prof ilon 02-12-2025 Albumin [Mass/Vol] 2.9 g/dL Low 3.5-5.0 [facility] Comment on above: Performed By: #### L 100.0100, L500.4050, L300.3900 #### [facility] [address] [place], [address] Albumin/Globulin [Mass ratio] 0.7 {ratio} Low 0.9-2.4 [facility] Comment on above: Performed By: #### L 100.0100, L500.4050, L300.3900 #### [facility] [address] [place], [address] ALK PHOS 177 U/L High 40-129 [facility] Comment on above: Performed By: #### L 100.0100, L500.4050, L300.3900 #### [facility] [address] [place], [address] ALT [Catalytic activity/Vol] 9 U/L Normal <=46 [facility] Comment on above: Performed By: #### L 100.0100, L500.4050, L300.3900 #### [facility] [address] [place], [address] AST [Catalytic activity/Vol] 34 U/L Normal <=37 [facility] Comment on above: Performed By: #### L 100.0100, L500.4050, L300.3900 #### [facility] [address] [place], [address] Bilirubin [Mass/Vol] 0.69 mg/dL Normal 0.00-1.30 [facility] Comment on above: Performed By: #### L 100.0100, L500.4050, L300.3900 #### [facility] [address] [place], [address] BUN/CRE 10.3 RATIO Normal 10-20 [facility] Comment on above: Performed By: #### L 100.0100, L500.4050, L300.3900 #### [facility] [address] [place], [address] Calcium [Mass/Vol] 9.9 mg/dL Normal 7.6-11.0 [facility] Comment on above: Performed By: #### L 100.0100, L500.4050, L300.3900 #### [facility] [address] [place], [address] Chloride [Moles/Vol] 91 mmol/L Low 98-108 [facility] Comment on above: Performed By: #### L 100.0100, L500.4050, L300.3900 #### [facility] [address] [place], [address] CO2 [Moles/Vol] 28.4 mmol/L Normal 21.0-32.0 [facility] Comment on above: Performed By: #### L 100.0100, L500.4050, L300.3900 #### [facility] [address] [place], [address] Creatinine [Mass/Vol] 4.17 mg/dL High 0.70-1.20 [facility] Comment on above: Performed By: #### L 100.0100, L500.4050, L300.3900 #### [facility] [address] [place], [address] GAP 12 Normal 5-15 [facility] Comment on above: Performed By: #### L 100.0100, L500.4050, L300.3900 #### [facility] [address] [place], [address] GFR/1.73 sq M.predicted among non-blacks MDRD (S/P/Bld) [Vol rate/Area] 16 mL/min/{1.73_m2} Low >60 [facility] Comment on above: Result Comment: mL/m in/1.73m2 CKD-EPI Creatinine Equation (2020) Performed By: #### L 100.0100, L500.4050, L300.3900 #### [facility] [address] [place], [address] Globulin (S) [Mass/Vol] 4.2 g/dL Normal 2.2-4.2 [facility] Comment on above: Performed By: #### L 100.0100, L500.4050, L300.3900 #### [facility] [address] [place], [address] Glucose [Mass/Vol] 77 mg/dL Normal 70-99 [facility] Comment on above: Performed By: #### L 100.0100, L500.4050, L300.3900 #### [facility] [address] [place], [address] Potassium [Moles/Vol] 3.2 mmol/L Low 3.3-5.1 [facility] Comment on above: Performed By: #### L 100.0100, L500.4050, L300.3900 #### [facility] [address] [place], [address] Sodium [Moles/Vol] 131 mmol/L Low 133-145 [facility] Comment on above: Performed By: #### L 100.0100, L500.4050, L300.3900 #### [facility] [address] [place], [address] T PROT 7.1 g/dL Normal 5.9-8.4 [facility] Comment on above: Performed By: #### L 100.0100, L500.4050, L300.3900 #### [facility] [address] [place], [address] Urea nitrogen [Mass/Vol] 43 mg/dL High 4-19 [facility] Comment on above: Performed By: #### L 100.0100, L500.4050, L300.3900 #### [facility] [address] [place], [address] Eosinophil percentageOrdered By: [facility] Mel[facility] on 02-12-2025 Eosinophils/100 WBC (Bld) 4.7 % 0-5 [facility] Erythrocyte distribution wid th ratioOrdered By: [facility] an[facility]udyhort[facility]amson on 02-12-2025 Erythrocyte distribution width (RBC) [Ratio] 18.3 % High 11.6-14.6 [facility] Erythrocyte distribution wid th standard deviationOrdered By: [facility] on 02-12-2025 Erythrocyte distribution width (RBC) [Ratio] 59.4 fl High 35.1-43.9 [facility] Glomerular filtration rate ( GFR) estimation/1.73 sq m using serum, plasma, or whole bOrdered By: [facility] on 02-12-2025 GFR/1.73 sq M.predicted among non-blacks MDRD (S/P/Bld) [Vol rate/Area] 16 mL/min/{1.73_m2} Low >60 [facility] Comment on above: mL/min/1.73m2 CKD-EP I Creatinine Equation (2020) Hematocrit Auto (Bld) [Volum e fraction]Ordered By: [facility] aneudyhortensesamson on 02-12-2025 Hematocrit (Bld) [Volume fraction] 24.6 % Low 40-54 [facility] Hemoglobin measurementOrdere d By: [facility] an[facility]ort[facility]amson on 02-12-2025 Hemoglobin (Bld) [Mass/Vol] 8.0 g/dL Low 13.0-16.5 [facility] Immature granulocytes/100 WB C Auto (Bld)Ordered By: [facility] on 02-12-2025 Immature granulocytes/100 WBC (Bld) 0.500 % 0.0-0.9 [facility] Comment on above: IG% - Immature Granu locytes (promyelocytes, myelocytes and metamyelocytes) > 1% indicates that a LEFT SHIFT is Present. International normalized rat io (INR) calculationOrdered By: Kayley Melendrez on 02-12-2025 INR Coag (Bld) [Relative time] 1.5 {INR} [facility] - Chemistry and C hemistry - challengeOrdered By: Kayley Melendrez on 02-12-2025 AST [Catalytic activity/Vol] 34 U/L <38 [facility] MCV (mean corpuscular volume ) determinationOrdered By: Kayley Melendrez on 02-12-2025 MCV (RBC) [Entitic vol] 90.1 fL 80-94 [facility] Mean corpuscular hemoglobin (MCH) determinationOrdered By: Kayley Melendrez on 02-12-2025 MCH (RBC) [Entitic mass] 29.3 pg 27.0-32.0 [facility] Mean corpuscular hemoglobin concentration (MCHC) determinationOrdered By: Kayley Melendrez on 02-12-2025 MCHC (RBC) [Mass/Vol] 32.5 g/dL 32-36 [facility] Mean platelet volume determi nationOrdered By: Kayley Melendrez on 02-12-2025 Platelet mean volume (Bld) [Entitic vol] 9.2 fL 6.2-12.0 [facility] Monocyte percentageOrdered B y: Kayley Melendrez on 02-12-2025 Monocytes/100 WBC (Bld) 11.9 % High 0-10 [facility] Neutrophil percentageOrdered By: Kayley Melendrez on 02-12-2025 Neutrophils/100 WBC (Bld) 64.1 % 47-70 [facility] Nucleated red blood cell per centageOrdered By: Kayley Melendrez on 02-12-2025 Nucleated RBC/100 WBC (Bld) [Ratio] 0 % 0-5 [facility] Platelet countOrdered By: Carmen Melendrez on 02-12-2025 Platelets (Bld) [#/Vol] 294 10*3/uL 150-450 [facility] Potassium measurement (mass/ volume)Ordered By: Kayley Melendrez on 02-12-2025 Potassium (Unsp spec) [Mass/Vol] 3.2 mmol/L Low 3.3-5.1 [facility] Prothrombin Time w/INRon INR Coag (PPP) [Relative time] 1.5 {INR} Normal [facility] Comment on above: Performed By: #### L 100.0100, L500.4050, L300.3900 #### [facility] [address] [place], [address] PT Coag (PPP) [Time] 17.9 s High 11.7-14.9 [facility] Comment on above: Performed By: #### L 100.0100, L500.4050, L300.3900 #### [facility] [address] [place], [address] Prothrombin timeOrdered By: Kayley Melendrez on 02-12-2025 PT Coag (PPP) [Time] 17.9 s High 11.7-14.9 [facility] RBC Auto (Bld) [#/Vol]Ordere d By: Kayley Melendrez on 02-12-2025 RBC (Bld) [#/Vol] 2.73 10*6/uL Low 4.6-6.2 [facility] Serum creatinine measurement (mass/volume)Ordered By: Kayley Melendrez on 02-12-2025 Creatinine [Mass/Vol] 4.17 mg/dL High 0.70-1.20 [facility] Serum globulin measurementOr dered By: Kayley Melendrez on 02-12-2025 Globulin (S) [Mass/Vol] 4.2 g/dL 2.2-4.2 [facility] Serum glucose measurement (m ass/volume)Ordered By: Kayley Melendrez on 02-12-2025 Glucose [Mass/Vol] 77 mg/dL 70-99 [facility] Serum or plasma alanine mayorga otransferase (ALT) measurementOrdered By: Kayley Melendrez on 02-12-2025 ALT [Catalytic activity/Vol] 9 U/L <47 [facility] Serum or plasma albumin audrey urement (mass/volume)Ordered By: Kayley Melendrez on 02-12-2025 Albumin [Mass/Vol] 2.9 g/dL Low 3.5-5.0 [facility] Serum or plasma albumin/glob ulin mass ratioOrdered By: Kayley Melendrez on 02-12-2025 Albumin/Globulin [Mass ratio] 0.7 {ratio} Low 0.9-2.4 [facility] Serum or plasma alkaline jacob sphatase measurementOrdered By: Kayley Melendrez on 02-12-2025 ALP [Catalytic activity/Vol] 177 U/L High 40-129 [facility] Serum or plasma calcium audrey urement (mass/volume)Ordered By: Kayley Melendrez on 02-12-2025 Calcium [Mass/Vol] 9.9 mg/dL 7.6-11.0 [facility] Serum or plasma urea nitroge n measurement (mass/volume)Ordered By: Kayley Melendrez on 02-12-2025 Urea nitrogen [Mass/Vol] 43 mg/dL High 4-19 [facility] Sodium levelOrdered By: Omega Melendrez on 02-12-2025 Sodium [Moles/Vol] 131 mmol/L Low 133-145 [facility] Total proteinOrdered By: Lexis Melendrez on 02-12-2025 Protein [Mass/Vol] 7.1 g/dL 5.9-8.4 [facility] White blood cell (WBC) count Ordered By: Kayley Melendrez on 02-12-2025 WBC (Bld) [#/Vol] 7.3 10*3/uL 4.4-11.0 [facility] International normalized rat io (INR) measurement by fingerstickOrdered By: Kayley Melendrez on 02-08-2025 INR Coag (BldC) [Relative time] 2.3 [facility] Comment on above: Critical Value > 4.0 Protime w/INR Fingerstickon 02-08-2025 INR Coag (PPP) [Relative time] 2.3 {INR} Normal [facility] Comment on above: Result Comment: Crit ical Value > 4.0 Performed By: #### L 9200.0000 #### [facility] [address] [place], [place], [id number] Protime Coagsen 24.9 SEC High 11.7-14.9 [facility] Comment on above: Performed By: #### L 9200.0000 #### [facility] [address] [place], [place], [id number] Whole blood prothrombin time Ordered By: Kayley Melendrez on 02-08-2025 PT Coag (Bld) [Time] 24.9 s High 11.7-14.9 [facility] International normalized rat io (INR) calculationOrdered By: Jayesh Stubbs on 02-07-2025 INR Coag (Bld) [Relative time] 1.8 {INR} [facility] Prothrombin Time w/INRon INR Coag (PPP) [Relative time] 1.8 {INR} Normal [facility] Comment on above: Order Comment: 412.2 Performed By: #### L 300.3900 #### [facility] [address] [place], [place], [id number] PT Coag (PPP) [Time] 21.1 s High 11.7-14.9 [facility] Comment on above: Order Comment: 412.2 Performed By: #### L 300.3900 #### [facility] [address] [place], [place], [id number] Prothrombin timeOrdered By: Jayesh Stubbs on 02-07-2025 PT Coag (PPP) [Time] 21.1 s High 11.7-14.9 [facility] Absolute lymphocyte countOrd ered By: Kayley Melendrez on 02-05-2025 Lymphocytes Auto (Unsp spec) [#/Vol] 1.77 10*3/uL 0.83-4.51 [facility] Absolute neutrophil countOrd ered By: Kayley Melendrez on 02-05-2025 Neutrophils (Bld) [#/Vol] 4.6 10*3/uL 2.0-7.7 [facility] Anion gap in Serum or Plasma Ordered By: Kayley Melendrez on 02-05-2025 Anion gap [Moles/Vol] 18 mmol/L High 5-15 [facility] Automated lymphocyte count a s percentage of total leukocytesOrdered By: Kayley Mendozastephen on 02-05-2025 Lymphocytes/100 WBC Auto (Unsp spec) 22.0 % 19-41 [facility] BUN/creatinine ratioOrdered By: Navarrojacob Rejistephen on 02-05-2025 Urea nitrogen/Creatinine [Mass ratio] 4.1 mg/mg Low 10-20 [facility] Basophil percentageOrdered B y: Kayley Mendozastephen on 02-05-2025 Basophils/100 WBC (Bld) 1.0 % 0-1 [facility] Bilirubin, totalOrdered By: Lexisamparo Rejistephen on 02-05-2025 Bilirubin [Mass/Vol] 0.81 mg/dL 0.00-1.30 [facility] CBC W/Diff, Automatedon 01-25 Absolute Lymph 1.77 X10 3/uL Normal 0.83-4.51 [facility] Comment on above: Order Comment: 413.2 Performed By: #### L 300.3900, L500.4050, L100.0100 #### [facility] [address] [place], [address] Absolute Neut 4.6 X10 3/uL Normal 2.0-7.7 [facility] Comment on above: Order Comment: 413.2 Performed By: #### L 300.3900, L500.4050, L100.0100 #### [facility] [address] [place], [address] Basophils/100 WBC (Bld) 1.0 % Normal 0-1 [facility] Comment on above: Order Comment: 413.2 Performed By: #### L 300.3900, L500.4050, L100.0100 #### [facility] [address] [place], [address] Eosinophils/100 WBC (Bld) 4.1 % Normal 0-5 [facility] Comment on above: Order Comment: 413.2 Performed By: #### L 300.3900, L500.4050, L100.0100 #### [facility] [address] [place], [address] Erythrocyte distribution width (RBC) [Ratio] 18.8 % High 11.6-14.6 [facility] Comment on above: Order Comment: 413.2 Performed By: #### L 300.3900, L500.4050, L100.0100 #### [facility] [address] [place], [address] Hematocrit (Bld) [Volume fraction] 28.1 % Low 40-54 [facility] Comment on above: Order Comment: 413.2 Performed By: #### L 300.3900, L500.4050, L100.0100 #### [facility] [address] [place], [address] Hemoglobin (Bld) [Mass/Vol] 8.8 g/dL Low 13.0-16.5 [facility] Comment on above: Order Comment: 413.2 Performed By: #### L 300.3900, L500.4050, L100.0100 #### [facility] [address] [place], [address] IG% 0.600 Normal 0.0-0.9 [facility] Comment on above: Order Comment: 413.2 Result Comment: IG% - Immature Granulocytes (promyelocytes, myelocytes and metamyelocytes) > 1% indicates that a LEFT SHIFT is Present. Performed By: #### L 300.3900, L500.4050, L100.0100 #### [facility] [address] [place], [address] Lymphocytes/100 WBC (Bld) 22.0 % Normal 19-41 [facility] Comment on above: Order Comment: 413.2 Performed By: #### L 300.3900, L500.4050, L100.0100 #### [facility] [address] [place], [address] MCH (RBC) [Entitic mass] 29.0 pg Normal 27.0-32.0 [facility] Comment on above: Order Comment: 413.2 Performed By: #### L 300.3900, L500.4050, L100.0100 #### [facility] [address] [place], [address] MCHC (RBC) [Mass/Vol] 31.3 g/dL Low 32-36 [facility] Comment on above: Order Comment: 413.2 Performed By: #### L 300.3900, L500.4050, L100.0100 #### [facility] [address] [place], [address] MCV (RBC) [Entitic vol] 92.7 fL Normal 80-94 [facility] Comment on above: Order Comment: 413.2 Performed By: #### L 300.3900, L500.4050, L100.0100 #### [facility] [address] [place], [address] Monocytes/100 WBC (Bld) 15.6 % High 0-10 [facility] Comment on above: Order Comment: 413.2 Performed By: #### L 300.3900, L500.4050, L100.0100 #### [facility] [address] [place], [address] Neutrophils/100 WBC (Bld) 56.7 % Normal 47-70 [facility] Comment on above: Order Comment: 413.2 Performed By: #### L 300.3900, L500.4050, L100.0100 #### [facility] [address] [place], [address] Nucleated RBC (Bld) [#/Vol] 0 10*3/uL Normal 0-5 [facility] Comment on above: Order Comment: 413.2 Performed By: #### L 300.3900, L500.4050, L100.0100 #### [facility] [address] [place], [address] Platelet mean volume (Bld) [Entitic vol] 9.2 fL Normal 6.2-12.0 [facility] Comment on above: Order Comment: 413.2 Performed By: #### L 300.3900, L500.4050, L100.0100 #### [facility] [address] [place], [address] Platelets (Bld) [#/Vol] 358 10*3/uL Normal 150-450 [facility] Comment on above: Order Comment: 413.2 Performed By: #### L 300.3900, L500.4050, L100.0100 #### [facility] [address] [place], [address] RBC (Bld) [#/Vol] 3.03 10*6/uL Low 4.6-6.2 [facility] Comment on above: Order Comment: 413.2 Performed By: #### L 300.3900, L500.4050, L100.0100 #### [facility] [address] [place], [address] RDW SD 63.1 fl High 35.1-43.9 [facility] Comment on above: Order Comment: 413.2 Performed By: #### L 300.3900, L500.4050, L100.0100 #### [facility] [address] [place], [address] WBC (Bld) [#/Vol] 8.1 10*3/uL Normal 4.4-11.0 [facility] Comment on above: Order Comment: 413.2 Performed By: #### L 300.3900, L500.4050, L100.0100 #### [facility] [address] [place], [address] Carbon dioxide, total [Moles /volume] in Central venous bloodOrdered By: Kayley Melendrez on 02-05-2025 CO2 [Moles/Vol] 25.9 mmol/L 21.0-32.0 [facility] Chloride assayOrdered By: Carmen Melendrez on 02-05-2025 Chloride [Moles/Vol] 93 mmol/L Low 98-108 [facility] Comprehensive Metabolic Prof ilon 02-05-2025 Albumin [Mass/Vol] 3.1 g/dL Low 3.5-5.0 [facility] Comment on above: Order Comment: 413.2 Performed By: #### L 300.3900, L500.4050, L100.0100 #### [facility] [address] [place], [address] Albumin/Globulin [Mass ratio] 0.7 {ratio} Low 0.9-2.4 [facility] Comment on above: Order Comment: 413.2 Performed By: #### L 300.3900, L500.4050, L100.0100 #### [facility] [address] [place], [address] ALK PHOS 260 U/L High 40-129 [facility] Comment on above: Order Comment: 413.2 Performed By: #### L 300.3900, L500.4050, L100.0100 #### [facility] [address] [place], [address] ALT [Catalytic activity/Vol] 11 U/L Normal <=46 [facility] Comment on above: Order Comment: 413.2 Performed By: #### L 300.3900, L500.4050, L100.0100 #### [facility] [address] [place], [address] AST [Catalytic activity/Vol] 42 U/L High <=37 [facility] Comment on above: Order Comment: 413.2 Performed By: #### L 300.3900, L500.4050, L100.0100 #### [facility] [address] [place], [address] Bilirubin [Mass/Vol] 0.81 mg/dL Normal 0.00-1.30 [facility] Comment on above: Order Comment: 413.2 Performed By: #### L 300.3900, L500.4050, L100.0100 #### [facility] [address] [place], [address] BUN/CRE 4.1 RATIO Low 10-20 [facility] Comment on above: Order Comment: 413.2 Performed By: #### L 300.3900, L500.4050, L100.0100 #### [facility] [address] [place], [address] Calcium [Mass/Vol] 10.0 mg/dL Normal 7.6-11.0 [facility] Comment on above: Order Comment: 413.2 Performed By: #### L 300.3900, L500.4050, L100.0100 #### [facility] [address] [place], [address] Chloride [Moles/Vol] 93 mmol/L Low 98-108 [facility] Comment on above: Order Comment: 413.2 Performed By: #### L 300.3900, L500.4050, L100.0100 #### [facility] [address] [place], [address] CO2 [Moles/Vol] 25.9 mmol/L Normal 21.0-32.0 [facility] Comment on above: Order Comment: 413.2 Performed By: #### L 300.3900, L500.4050, L100.0100 #### [facility] [address] [place], [address] Creatinine [Mass/Vol] 5.27 mg/dL High 0.70-1.20 [facility] Comment on above: Order Comment: 413.2 Performed By: #### L 300.3900, L500.4050, L100.0100 #### [facility] [address] [place], [address] GAP 18 High 5-15 [facility] Comment on above: Order Comment: 413.2 Performed By: #### L 300.3900, L500.4050, L100.0100 #### [facility] [address] [place], [address] GFR/1.73 sq M.predicted among non-blacks MDRD (S/P/Bld) [Vol rate/Area] 12 mL/min/{1.73_m2} Low >60 [facility] Comment on above: Order Comment: 413.2 Result Comment: mL/m in/1.73m2 CKD-EPI Creatinine Equation (2020) Performed By: #### L 300.3900, L500.4050, L100.0100 #### [facility] [address] [place], [address] Globulin (S) [Mass/Vol] 4.3 g/dL High 2.2-4.2 [facility] Comment on above: Order Comment: 413.2 Performed By: #### L 300.3900, L500.4050, L100.0100 #### [facility] [address] [place], [address] Glucose [Mass/Vol] 65 mg/dL Low 70-99 [facility] Comment on above: Order Comment: 413.2 Performed By: #### L 300.3900, L500.4050, L100.0100 #### [facility] [address] [place], [address] Potassium [Moles/Vol] 4.5 mmol/L Normal 3.3-5.1 [facility] Comment on above: Order Comment: 413.2 Performed By: #### L 300.3900, L500.4050, L100.0100 #### [facility] [address] [place], [address] Sodium [Moles/Vol] 136 mmol/L Normal 133-145 [facility] Comment on above: Order Comment: 413.2 Performed By: #### L 300.3900, L500.4050, L100.0100 #### [facility] [address] [place], [address] T PROT 7.4 g/dL Normal 5.9-8.4 [facility] Comment on above: Order Comment: 413.2 Performed By: #### L 300.3900, L500.4050, L100.0100 #### [facility] [address] [place], [address] Urea nitrogen [Mass/Vol] 22 mg/dL High 4-19 [facility] Comment on above: Order Comment: 413.2 Performed By: #### L 300.3900, L500.4050, L100.0100 #### [facility] [address] [place], [address] Eosinophil percentageOrdered By: Kayley Melendrez on 02-05-2025 Eosinophils/100 WBC (Bld) 4.1 % 0-5 [facility] Erythrocyte distribution wid th ratioOrdered By: Kayley Melendrez on 02-05-2025 Erythrocyte distribution width (RBC) [Ratio] 18.8 % High 11.6-14.6 [facility] Erythrocyte distribution wid th standard deviationOrdered By: Kayley Melendrez on 02-05-2025 Erythrocyte distribution width (RBC) [Ratio] 63.1 fl High 35.1-43.9 [facility] Glomerular filtration rate ( GFR) estimation/1.73 sq m using serum, plasma, or whole bOrdered By: Kayley Melendrez on 02-05-2025 GFR/1.73 sq M.predicted among non-blacks MDRD (S/P/Bld) [Vol rate/Area] 12 mL/min/{1.73_m2} Low >60 [facility] Comment on above: mL/min/1.73m2 CKD-EP I Creatinine Equation (2020) Hematocrit Auto (Bld) [Volum e fraction]Ordered By: Kayley Melendrez on 02-05-2025 Hematocrit (Bld) [Volume fraction] 28.1 % Low 40-54 [facility] Hemoglobin measurementOrdere d By: Kayley Melendrez on 02-05-2025 Hemoglobin (Bld) [Mass/Vol] 8.8 g/dL Low 13.0-16.5 [facility] Immature granulocytes/100 WB C Auto (Bld)Ordered By: Kayley Melendrez on 02-05-2025 Immature granulocytes/100 WBC (Bld) 0.600 % 0.0-0.9 [facility] Comment on above: IG% - Immature Granu locytes (promyelocytes, myelocytes and metamyelocytes) > 1% indicates that a LEFT SHIFT is Present. Laboratory - Chemistry and C hemistry - challengeOrdered By: Kayley Melendrez on 02-05-2025 AST [Catalytic activity/Vol] 42 U/L High <38 [facility] MCV (mean corpuscular volume ) determinationOrdered By: Kayley Melendrez on 02-05-2025 MCV (RBC) [Entitic vol] 92.7 fL 80-94 [facility] Mean corpuscular hemoglobin (MCH) determinationOrdered By: Kayley Melendrez on 02-05-2025 MCH (RBC) [Entitic mass] 29.0 pg 27.0-32.0 [facility] Mean corpuscular hemoglobin concentration (MCHC) determinationOrdered By: Kayley Melendrez on 02-05-2025 MCHC (RBC) [Mass/Vol] 31.3 g/dL Low 32-36 [facility] Mean platelet volume determi nationOrdered By: Kayley Melendrez on 02-05-2025 Platelet mean volume (Bld) [Entitic vol] 9.2 fL 6.2-12.0 [facility] Monocyte percentageOrdered B y: Kayley Melendrez on 02-05-2025 Monocytes/100 WBC (Bld) 15.6 % High 0-10 [facility] Neutrophil percentageOrdered By: Kayley Melendrez on 02-05-2025 Neutrophils/100 WBC (Bld) 56.7 % 47-70 [facility] Nucleated red blood cell per centageOrdered By: Kayley Melendrez on 02-05-2025 Nucleated RBC/100 WBC (Bld) [Ratio] 0 % 0-5 [facility] Platelet countOrdered By: Carmen Melendrez on 02-05-2025 Platelets (Bld) [#/Vol] 358 10*3/uL 150-450 [facility] Potassium measurement (mass/ volume)Ordered By: Kayley Melendrez on 02-05-2025 Potassium (Unsp spec) [Mass/Vol] 4.5 mmol/L 3.3-5.1 [facility] RBC Auto (Bld) [#/Vol]Ordere d By: Kayley Melendrez on 02-05-2025 RBC (Bld) [#/Vol] 3.03 10*6/uL Low 4.6-6.2 [facility] Serum creatinine measurement (mass/volume)Ordered By: Kayley Melendrez on 02-05-2025 Creatinine [Mass/Vol] 5.27 mg/dL High 0.70-1.20 [facility] Serum globulin measurementOr dered By: Kayley Melendrez on 02-05-2025 Globulin (S) [Mass/Vol] 4.3 g/dL High 2.2-4.2 [facility] Serum glucose measurement (m ass/volume)Ordered By: Kayley Melendrez on 02-05-2025 Glucose [Mass/Vol] 65 mg/dL Low 70-99 [facility] Serum or plasma alanine mayorga otransferase (ALT) measurementOrdered By: Kayley Melendrez on 02-05-2025 ALT [Catalytic activity/Vol] 11 U/L <47 [facility] Serum or plasma albumin audrey urement (mass/volume)Ordered By: Kayley Melendrez on 02-05-2025 Albumin [Mass/Vol] 3.1 g/dL Low 3.5-5.0 [facility] Serum or plasma albumin/glob ulin mass ratioOrdered By: Kayley Melendrez on 02-05-2025 Albumin/Globulin [Mass ratio] 0.7 {ratio} Low 0.9-2.4 [facility] Serum or plasma alkaline jacob sphatase measurementOrdered By: Kayley Melendrez on 02-05-2025 ALP [Catalytic activity/Vol] 260 U/L High 40-129 [facility] Serum or plasma calcium audrey urement (mass/volume)Ordered By: Kayley Melendrez on 02-05-2025 Calcium [Mass/Vol] 10.0 mg/dL 7.6-11.0 [facility] Serum or plasma urea nitroge n measurement (mass/volume)Ordered By: Kayley Melendrez on 02-05-2025 Urea nitrogen [Mass/Vol] 22 mg/dL High 4-19 [facility] Sodium levelOrdered By: Omega Melendrez on 02-05-2025 Sodium [Moles/Vol] 136 mmol/L 133-145 [facility] Total proteinOrdered By: Lexis Melendrez on 02-05-2025 Protein [Mass/Vol] 7.4 g/dL 5.9-8.4 [facility] White blood cell (WBC) count Ordered By: Kayley Melendrez on 02-05-2025 WBC (Bld) [#/Vol] 8.1 10*3/uL 4.4-11.0 [facility] CBC panel Auto (Bld)on 02-01 Erythrocyte distribution width (RBC) [Ratio] 18.8 % High 11.5 - 15.0 % [facility] Hematocrit (Bld) [Volume fraction] 28.3 % Low 40.0 - 52.0 % [facility] Hemoglobin (Bld) [Mass/Vol] 8.9 g/dL Low 13.0 - 18.0 g/dL [facility] Interpretation and review of laboratory results Abnormal [facility] MCH (RBC) [Entitic mass] 28.2 pg 26. 0 - 34.0 pg [facility] MCHC (RBC) [Mass/Vol] 31.4 % 30.5 - 36.0 % [facility] MCV (RBC) [Entitic vol] 89.6 fL 77.0 - 99.0 fL [facility] Platelet mean volume (Bld) [Entitic vol] 9 fL 9.0 - 12.7 fL [facility] Platelets (Bld) [#/Vol] 282 10*3/uL 140 - 440 10*3/uL [facility] RBC (Bld) [#/Vol] 3.16 10*6/uL Low 4.40 - 5.9 0 10*6/uL [facility] WBC (Bld) [#/Vol] 7.9 10*3/uL 3.6 - 10.7 10*3/uL [facility] Comprehensive metabolic 1998 panelon 02-01-2025 Albumin [Mass/Vol] 2.1 g/dL Low 3.5 - 5.0 g/dL [facility] ALP [Catalytic activity/Vol] 226 U/L High 40 - 150 U/L [facility] ALT [Catalytic activity/Vol] 10 [facility] Anion gap [Moles/Vol] 11 mmol/L 3 - 13 mmol/L [facility] AST [Catalytic activity/Vol] 32 U[facility] U/L [facility] Bilirubin [Mass/Vol] 0.9 mg/dL [facility] mg/dL [facility] Calcium [Mass/Vol] 9.7 mg/dL 8.4 - 10. 2 mg/dL [facility] Chloride [Moles/Vol] 99 mmol/L 98 - 10 7 mmol/L [facility] CO2 [Moles/Vol] 26 mmol/L 22 - 29 mmol/L [facility] Creatinine [Mass/Vol] 2.39 mg/dL High 0.72 - 1.25 mg/dL [facility] GFR/1.73 sq M.predicted (S/P/Bld) [Vol rate/Area] 30.5 mL/min Low - PINF [facility] Glucose [Mass/Vol] 87 mg/dL 74 - 100 mg/dL [facility] Interpretation and review of laboratory results Abnormal [facility] Potassium [Moles/Vol] 3.7 mmol/L 3.5 - 5.1 mmol/L [facility] Protein [Mass/Vol] 7.4 g/dL 6.4 - 8.3 g/dL [facility] Sodium [Moles/Vol] 136 mmol/L 136 - 145 mmol/L [facility] Urea nitrogen [Mass/Vol] 7 mg/dL Low 9 - 23 mg/d L [facility] Hemoglobin (Bld) [Mass/Vol]O rdered By: Rosa Juares on 02-01-2025 Hematocrit (Bld) [Volume fraction] 28.8 % Low 40.0 - 52.0 % [facility] Interpretation and review of laboratory results Abnormal [facility] Laboratory - Chemistry and C hemistry - challengeon 02-01-2025 Magnesium [Mass/Vol] 1.9 mg/dL 1.6 - 2 .6 mg/dL [facility] Laboratory - Coagulationon 02-01-2025 PT Coag (Bld) [Time] 20.3 s High 9.0 - 12.0 s [facility] - Hematology and Cell countsOrdered By: Rosa Juares on 02-01-2025 Hemoglobin (Bld) [Mass/Vol] 8.9 g/dL Low 13.0 - 18.0 g/dL [facility] Magnesium [Mass/Vol]on 02-01 [facility] No Panel Informationon 02-01 Interpretation and review of laboratory results Normal [facility] PT Coag (Bld) [Time]on 02-01 INR Coag (PPP) [Relative time] 2 {INR} High 0.9 - 1.1 [facility] Interpretation and review of laboratory results Abnormal [facility] Phosphate [Moles/Vol]on Phosphate [Mass/Vol] 3.4 mg/dL 2.3 - 4 .7 mg/dL [facility] CBC panel Auto (Bld)on 01-31 Erythrocyte distribution width (RBC) [Ratio] 19.2 % High 11.5 - 15.0 % [facility] Hematocrit (Bld) [Volume fraction] 27.9 % Low 40.0 - 52.0 % [facility] Hemoglobin (Bld) [Mass/Vol] 8.8 g/dL Low 13.0 - 18.0 g/dL [facility] Interpretation and review of laboratory results Abnormal [facility] MCH (RBC) [Entitic mass] 28.4 pg 26. 0 - 34.0 pg [facility] MCHC (RBC) [Mass/Vol] 31.5 % 30.5 - 36.0 % [facility] MCV (RBC) [Entitic vol] 90 fL 77.0 - 99.0 fL [facility] Platelet mean volume (Bld) [Entitic vol] 9 fL 9.0 - 12.7 fL [facility] Platelets (Bld) [#/Vol] 278 10*3/uL 140 - 440 10*3/uL [facility] RBC (Bld) [#/Vol] 3.1 10*6/uL Low 4.40 - 5.9 0 10*6/uL [facility] WBC (Bld) [#/Vol] 9.3 10*3/uL 3.6 - 10.7 10*3/uL [facility] Comprehensive metabolic 1998 panelon 01-31-2025 Albumin [Mass/Vol] 2.1 g/dL Low 3.5 - 5.0 g/dL [facility] ALP [Catalytic activity/Vol] 218 U/L High 40 - 150 U/L [facility] ALT [Catalytic activity/Vol] 11 U/L [facility]L [facility] Anion gap [Moles/Vol] 12 mmol/L 3 - 13 mmol/L [facility] AST [Catalytic activity/Vol] 31 U/L [facility] U[facility]L [facility] Bilirubin [Mass/Vol] 0.8 mg/dL NINF - 1.2 mg/dL [facility] Calcium [Mass/Vol] 10 mg/dL 8.4 - 10. 2 mg/dL [facility] Chloride [Moles/Vol] 99 mmol/L 98 - 10 7 mmol/L [facility] CO2 [Moles/Vol] 27 mmol/L 22 - 29 mmol/L [facility] Creatinine [Mass/Vol] 3.64 mg/dL High 0.72 - 1.25 mg/dL [facility] GFR/1.73 sq M.predicted (S/P/Bld) [Vol rate/Area] 18.4 mL/min Low - PINF [facility] Glucose [Mass/Vol] 87 mg/dL 74 - 100 mg/dL [facility] Interpretation and review of laboratory results Abnormal [facility] Potassium [Moles/Vol] 4.3 mmol/L 3.5 - 5.1 mmol/L [facility] Protein [Mass/Vol] 7.3 g/dL 6.4 - 8.3 g/dL [facility] Sodium [Moles/Vol] 138 mmol/L 136 - 145 mmol/L [facility] Urea nitrogen [Mass/Vol] 15 mg/dL 9 - 23 mg/d L [facility] Hemoglobin (Bld) [Mass/Vol]o n 01-31-2025 Hematocrit (Bld) [Volume fraction] 28.8 % Low 40.0 - 52.0 % [facility] Interpretation and review of laboratory results Abnormal [facility] - Chemistry and C hemistry - challengeon 01-31-2025 Magnesium [Mass/Vol] 2 mg/dL 1.6 - 2 .6 mg/dL [facility] - Coagulationon 01-31-2025 PT Coag (Bld) [Time] 22.4 s High 9.0 - 12.0 s [facility] - Hematology and Cell countson 01-31-2025 Hemoglobin (Bld) [Mass/Vol] 9.2 g/dL Low 13.0 - 18.0 g/dL [facility] Magnesium [Mass/Vol]on 01-31 [facility] No Panel Informationon 01-31 Interpretation and review of laboratory results Normal [facility] PT Coag (Bld) [Time]on 01-31 INR Coag (PPP) [Relative time] 2.2 {INR} High 0.9 - 1.1 [facility] Interpretation and review of laboratory results Abnormal [facility] Phosphate [Moles/Vol]on Phosphate [Mass/Vol] 4.6 mg/dL 2.3 - 4 .7 mg/dL [facility] Basic metabolic 1998 panelon 01-30-2025 Anion gap [Moles/Vol] 13 mmol/L 3 - 13 mmol/L [facility] Calcium [Mass/Vol] 9.6 mg/dL 8.4 - 10. 2 mg/dL [facility] Chloride [Moles/Vol] 99 mmol/L 98 - 10 7 mmol/L [facility] CO2 [Moles/Vol] 23 mmol/L 22 - 29 mmol/L [facility] Creatinine [Mass/Vol] 2.56 mg/dL High 0.72 - 1.25 mg/dL [facility] GFR/1.73 sq M.predicted (S/P/Bld) [Vol rate/Area] 28.1 mL/min Low - PINF [facility] Glucose [Mass/Vol] 88 mg/dL 74 - 100 mg/dL [facility] Interpretation and review of laboratory results Abnormal [facility] Potassium [Moles/Vol] 3.7 mmol/L 3.5 - 5.1 mmol/L [facility] Sodium [Moles/Vol] 135 mmol/L Low 136 - 145 mmol/L [facility] Urea nitrogen [Mass/Vol] 10 mg/dL 9 - 23 mg/d L [facility] CBC panel Auto (Bld)on 01-30 Erythrocyte distribution width (RBC) [Ratio] 18.9 % High 11.5 - 15.0 % [facility] Hematocrit (Bld) [Volume fraction] 28.1 % Low 40.0 - 52.0 % [facility] Hemoglobin (Bld) [Mass/Vol] 8.7 g/dL Low 13.0 - 18.0 g/dL [facility] Interpretation and review of laboratory results Abnormal [facility] MCH (RBC) [Entitic mass] 27.6 pg 26. 0 - 34.0 pg [facility] MCHC (RBC) [Mass/Vol] 31 % 30.5 - 36.0 % [facility] MCV (RBC) [Entitic vol] 89.2 fL 77.0 - 99.0 fL [facility] Platelet mean volume (Bld) [Entitic vol] 9.1 fL 9.0 - 12.7 fL [facility] Platelets (Bld) [#/Vol] 276 10*3/uL 140 - 440 10*3/uL [facility] RBC (Bld) [#/Vol] 3.15 10*6/uL Low 4.40 - 5.9 0 10*6/uL [facility] WBC (Bld) [#/Vol] 8.8 10*3/uL 3.6 - 10.7 10*3/uL [facility] Hemoglobin (Bld) [Mass/Vol]O rdered By: Rikki Caballero on 01-30-2025 Hematocrit (Bld) [Volume fraction] 31.5 % Low 40.0 - 52.0 % [facility] Interpretation and review of laboratory results Abnormal [facility] Laboratory - Chemistry and C hemistry - challengeon 01-30-2025 Glucose [Mass/Vol] 106 mg/dL High 70 - 100 mg/dL [facility] Glucose [Mass/Vol] 107 mg/dL High 70 - 100 mg/dL [facility] Glucose [Mass/Vol] 77 mg/dL 70 - 100 mg/dL [facility] Magnesium [Mass/Vol] 1.9 mg/dL 1.6 - 2 .6 mg/dL [facility] Laboratory - Coagulationon 0 01-30-2025 PT Coag (Bld) [Time] 24.9 s High 9.0 - 12.0 s [facility] - Hematology and Cell countsOrdered By: Rikki Caballero on 01-30-2025 Hemoglobin (Bld) [Mass/Vol] 9.8 g/dL Low 13.0 - 18.0 g/dL [facility] Magnesium [Mass/Vol]on 01-30 Interpretation and review of laboratory results Normal [facility] No Panel Informationon 01-30 Interpretation and review of laboratory results Abnormal [facility] RADIOLOGY SYSTEM [facility] RADIOLOGY SYSTEM [facility] Radiology Study observation (narrative) [facility] meredith Interpretation and review of laboratory results Abnormal [facility] Interpretation and review of laboratory results Normal [facility] Blood Expiration Date [id number] S [facility] Crossmatch interpretation COMP [facility] Dispense Status Released from [employer] [facility] Product Blood Type 9500 [facility] PRODUCT CODE [id number] [facility] ABO O [facility] Unit Number [id number] [facility] alth Unit RH Negative [facility] Unit Volume 300 mL [facility] No Panel InformationOrdered By: Jun Borrero on 01-30-2025 [facility] Work Phone: PT Coag (Bld) [Time]on 01-30 INR Coag (PPP) [Relative time] 2.5 {INR} High 0.9 - 1.1 [facility] Interpretation and review of laboratory results Abnormal [facility] Phosphate [Moles/Vol]on Interpretation and review of laboratory results Normal [facility] Phosphate [Mass/Vol] 3.7 mg/dL 2.3 - 4 .7 mg/dL [facility] Basic metabolic 1998 panelon 01-29-2025 Anion gap [Moles/Vol] 17 mmol/L High 3 - 13 mmol/L [facility] Calcium [Mass/Vol] 9.8 mg/dL 8.4 - 10. 2 mg/dL [facility] Chloride [Moles/Vol] 94 mmol/L Low 98 - 10 7 mmol/L [facility] CO2 [Moles/Vol] 23 mmol/L 22 - 29 mmol/L [facility] Creatinine [Mass/Vol] 4.17 mg/dL High 0.72 - 1.25 mg/dL [facility] GFR/1.73 sq M.predicted (S/P/Bld) [Vol rate/Area] 15.6 mL/min Low - PINF [facility] Glucose [Mass/Vol] 80 mg/dL 74 - 100 mg/dL [facility] Potassium [Moles/Vol] 3.7 mmol/L 3.5 - 5.1 mmol/L [facility] Sodium [Moles/Vol] 134 mmol/L Low 136 - 145 mmol/L [facility] Urea nitrogen [Mass/Vol] 21 mg/dL 9 - 23 mg/d L [facility] CBC panel Auto (Bld)on 01-29 Erythrocyte distribution width (RBC) [Ratio] 19 % High 11.5 - 15.0 % [facility] Hematocrit (Bld) [Volume fraction] 27.3 % Low 40.0 - 52.0 % [facility] Hemoglobin (Bld) [Mass/Vol] 8.6 g/dL Low 13.0 - 18.0 g/dL [facility] Interpretation and review of laboratory results Abnormal [facility] MCH (RBC) [Entitic mass] 28.1 pg 26. 0 - 34.0 pg [facility] MCHC (RBC) [Mass/Vol] 31.5 % 30.5 - 36.0 % [facility] MCV (RBC) [Entitic vol] 89.2 fL 77.0 - 99.0 fL [facility] Platelet mean volume (Bld) [Entitic vol] 9.4 fL 9.0 - 12.7 fL [facility] Platelets (Bld) [#/Vol] 271 10*3/uL 140 - 440 10*3/uL [facility] RBC (Bld) [#/Vol] 3.06 10*6/uL Low 4.40 - 5.9 0 10*6/uL [facility] WBC (Bld) [#/Vol] 9.4 10*3/uL 3.6 - 10.7 10*3/uL [facility] Laboratory - Chemistry and C hemistry - challengeon 01-29-2025 Glucose [Mass/Vol] 82 mg/dL 70 - 100 mg/dL [facility] Glucose [Mass/Vol] 87 mg/dL 70 - 100 mg/dL [facility] Glucose [Mass/Vol] 91 mg/dL 70 - 100 mg/dL [facility] Magnesium [Mass/Vol] 2 mg/dL 1.6 - 2 .6 mg/dL [facility] [facility]on 0 01-29-2025 Coagulation factor VIII activity actual/normal Coag (PPP) [Relative time] 412 % High 56 - 191 % [facility] vWf Ag actual/normal IA (PPP) [Relative mass conc] 281 % High 52 - 214 % [facility] vWf multimers Ql (PPP) See Note [facility] vWf ristocetin cofactor act actual/normal Platelet aggregation (PPP) [Relative time] 200 % 51 - 215 % [facility] th PT Coag (Bld) [Time] 24 s High 9.0 - 12.0 s [facility] Magnesium [Mass/Vol]on 01-29 Interpretation and review of laboratory results Normal [facility] No Panel Informationon 01-29 Interpretation and review of laboratory results Normal [facility] Interpretation and review of laboratory results Normal [facility] Interpretation and review of laboratory results Abnormal [facility] Interpretation and review of laboratory results Normal [facility] Interpretation and review of laboratory results Abnormal [facility] Interpretation and review of laboratory results Abnormal [facility] PT Coag (Bld) [Time]on 01-29 INR Coag (PPP) [Relative time] 2.4 {INR} High 0.9 - 1.1 [facility] Phosphate [Moles/Vol]on Phosphate [Mass/Vol] 4.9 mg/dL High 2.3 - 4 .7 mg/dL [facility] aPTT Coag (Bld) [Time]on aPTT Coag (PPP) [Time] 51.4 s High 20.0 - 30.5 s [facility] Basic metabolic 1998 panelon 01-28-2025 Anion gap [Moles/Vol] 13 mmol/L 3 - 13 mmol/L [facility] Calcium [Mass/Vol] 10 mg/dL 8.4 - 10. 2 mg/dL [facility] Chloride [Moles/Vol] 98 mmol/L 98 - 10 7 mmol/L [facility] CO2 [Moles/Vol] 26 mmol/L 22 - 29 mmol/L [facility] Creatinine [Mass/Vol] 3.37 mg/dL High 0.72 - 1.25 mg/dL [facility] GFR/1.73 sq M.predicted (S/P/Bld) [Vol rate/Area] 20.2 mL/min Low - PINF [facility] Glucose [Mass/Vol] 82 mg/dL 74 - 100 mg/dL [facility] Interpretation and review of laboratory results Abnormal [facility] Potassium [Moles/Vol] 3.6 mmol/L 3.5 - 5.1 mmol/L [facility] Sodium [Moles/Vol] 137 mmol/L 136 - 145 mmol/L [facility] Urea nitrogen [Mass/Vol] 14 mg/dL 9 - 23 mg/d L [facility] CBC panel Auto (Bld)on 01-28 Erythrocyte distribution width (RBC) [Ratio] 19 % High 11.5 - 15.0 % [facility] Hematocrit (Bld) [Volume fraction] 26.3 % Low 40.0 - 52.0 % [facility] Hemoglobin (Bld) [Mass/Vol] 8.5 g/dL Low 13.0 - 18.0 g/dL [facility] Interpretation and review of laboratory results Abnormal [facility] MCH (RBC) [Entitic mass] 28.2 pg 26. 0 - 34.0 pg [facility] MCHC (RBC) [Mass/Vol] 32.3 % 30.5 - 36.0 % [facility] MCV (RBC) [Entitic vol] 87.4 fL 77.0 - 99.0 fL [facility] Platelet mean volume (Bld) [Entitic vol] 9.3 fL 9.0 - 12.7 fL [facility] Platelets (Bld) [#/Vol] 240 10*3/uL 140 - 440 10*3/uL [facility] RBC (Bld) [#/Vol] 3.01 10*6/uL Low 4.40 - 5.9 0 10*6/uL [facility] WBC (Bld) [#/Vol] 9.8 10*3/uL 3.6 - 10.7 10*3/uL [facility] Laboratory - Chemistry and C hemistry - challengeon 01-28-2025 Glucose [Mass/Vol] 127 mg/dL High 70 - 100 mg/dL [facility] Magnesium [Mass/Vol] 2 mg/dL 1.6 - 2 .6 mg/dL [facility] Laboratory - Coagulationon 01-28-2025 PT Coag (Bld) [Time] 21.9 s High 9.0 - 12.0 s [facility] Magnesium [Mass/Vol]on 01-28 Interpretation and review of laboratory results Normal [facility] No Panel Informationon 01-28 Interpretation and review of laboratory results Abnormal [facility] Interpretation and review of laboratory results Abnormal [facility] PT Coag (Bld) [Time]on 01-28 INR Coag (PPP) [Relative time] 2.2 {INR} High 0.9 - 1.1 [facility] Phosphate [Moles/Vol]on Interpretation and review of laboratory results Abnormal [facility] Phosphate [Mass/Vol] 4.9 mg/dL High 2.3 - 4 .7 mg/dL [facility] aPTT Coag (Bld) [Time]on aPTT Coag (PPP) [Time] 49 s High 20.0 - 30.5 s [facility] Interpretation and review of laboratory results Abnormal [facility] aPTT Coag (PPP) [Time] 46.3 s High 20.0 - 30.5 s [facility] Basic metabolic 1998 panelon 01-27-2025 Anion gap [Moles/Vol] 17 mmol/L High 3 - 13 mmol/L [facility] Calcium [Mass/Vol] 9.9 mg/dL 8.4 - 10. 2 mg/dL [facility] Chloride [Moles/Vol] 99 mmol/L 98 - 10 7 mmol/L [facility] CO2 [Moles/Vol] 23 mmol/L 22 - 29 mmol/L [facility] Creatinine [Mass/Vol] 2.27 mg/dL High 0.72 - 1.25 mg/dL [facility] GFR/1.73 sq M.predicted (S/P/Bld) [Vol rate/Area] 32.4 mL/min Low - PINF [facility] Glucose [Mass/Vol] 115 mg/dL High 74 - 100 mg/dL [facility] Interpretation and review of laboratory results Abnormal [facility] Potassium [Moles/Vol] 3.9 mmol/L 3.5 - 5.1 mmol/L [facility] Sodium [Moles/Vol] 139 mmol/L 136 - 145 mmol/L [facility] Urea nitrogen [Mass/Vol] 9 mg/dL 9 - 23 mg/d L [facility] CBC panel Auto (Bld)on 01-27 Erythrocyte distribution width (RBC) [Ratio] 19.1 % High 11.5 - 15.0 % [facility] Hematocrit (Bld) [Volume fraction] 28.3 % Low 40.0 - 52.0 % [facility] Hemoglobin (Bld) [Mass/Vol] 9 g/dL Low 13.0 - 18.0 g/dL [facility] Interpretation and review of laboratory results Abnormal [facility] MCH (RBC) [Entitic mass] 27.6 pg 26. 0 - 34.0 pg [facility] MCHC (RBC) [Mass/Vol] 31.8 % 30.5 - 36.0 % [facility] MCV (RBC) [Entitic vol] 86.8 fL 77.0 - 99.0 fL [facility] Platelet mean volume (Bld) [Entitic vol] 8.7 fL Low 9.0 - 12.7 fL [facility] Platelets (Bld) [#/Vol] 273 10*3/uL 140 - 440 10*3/uL [facility] RBC (Bld) [#/Vol] 3.26 10*6/uL Low 4.40 - 5.9 0 10*6/uL [facility] WBC (Bld) [#/Vol] 10 10*3/uL 3.6 - 10.7 10*3/uL [facility] Hemoglobin (Bld) [Mass/Vol]o n 01-27-2025 Hematocrit (Bld) [Volume fraction] 26.3 % Low 40.0 - 52.0 % [facility] Interpretation and review of laboratory results Abnormal [facility] Laboratory - Chemistry and C hemistry - challengeon 01-27-2025 Glucose [Mass/Vol] 102 mg/dL High 70 - 100 mg/dL [facility] Glucose [Mass/Vol] 127 mg/dL High 70 - 100 mg/dL [facility] Glucose [Mass/Vol] 87 mg/dL 70 - 100 mg/dL [facility] Magnesium [Mass/Vol] 1.9 mg/dL 1.6 - 2 .6 mg/dL [facility] Laboratory - Coagulationon 0 01-27-2025 PT Coag (Bld) [Time] 19.9 s High 9.0 - 12.0 s [facility] Laboratory - Hematology and Cell countson 01-27-2025 Hemoglobin (Bld) [Mass/Vol] 8.4 g/dL Low 13.0 - 18.0 g/dL [facility] Magnesium [Mass/Vol]on 01-27 [facility] No Panel Informationon 01-27 Interpretation and review of laboratory results Abnormal [facility] Interpretation and review of laboratory results Abnormal [facility] Interpretation and review of laboratory results Normal [facility] Interpretation and review of laboratory results Abnormal [facility] Interpretation and review of laboratory results Normal [facility] PT Coag (Bld) [Time]on 01-27 INR Coag (PPP) [Relative time] 1.9 {INR} High 0.9 - 1.1 [facility] Phosphate [Moles/Vol]on Phosphate [Mass/Vol] 3.4 mg/dL 2.3 - 4 .7 mg/dL [facility] aPTT Coag (Bld) [Time]on aPTT Coag (PPP) [Time] 47.9 s High 20.0 - 30.5 s [facility] Interpretation and review of laboratory results Abnormal [facility] aPTT Coag (PPP) [Time] 49.6 s High 20.0 - 30.5 s [facility] Interpretation and review of laboratory results Abnormal [facility] aPTT Coag (PPP) [Time] 45 s High 20.0 - 30.5 s [facility] Interpretation and review of laboratory results Abnormal [facility] aPTT Coag (PPP) [Time] 40.2 s High 20.0 - 30.5 s [facility] Basic metabolic 1998 panelon 01-26-2025 Anion gap [Moles/Vol] 16 mmol/L High 3 - 13 mmol/L [facility] Calcium [Mass/Vol] 9 mg/dL 8.4 - 10. 2 mg/dL [facility] Chloride [Moles/Vol] 100 mmol/L 98 - 10 7 mmol/L [facility] CO2 [Moles/Vol] 20 mmol/L Low 22 - 29 mmol/L [facility] Creatinine [Mass/Vol] 3.37 mg/dL High 0.72 - 1.25 mg/dL [facility] GFR/1.73 sq M.predicted (S/P/Bld) [Vol rate/Area] 20.2 mL/min Low - PINF [facility] Glucose [Mass/Vol] 75 mg/dL 74 - 100 mg/dL [facility] Interpretation and review of laboratory results Abnormal [facility] Potassium [Moles/Vol] 5.1 mmol/L 3.5 - 5.1 mmol/L [facility] Sodium [Moles/Vol] 136 mmol/L 136 - 145 mmol/L [facility] Urea nitrogen [Mass/Vol] 19 mg/dL 9 - 23 mg/d L [facility] CBC panel Auto (Bld)Ordered By: Brandy Ross on 01-26-2025 Erythrocyte distribution width (RBC) [Ratio] 19.3 % High 11.5 - 15.0 % [facility] Hematocrit (Bld) [Volume fraction] 21 % Low 40.0 - 52.0 % [facility] Hemoglobin (Bld) [Mass/Vol] 6.7 g/dL Critically low 13.0 - 18.0 g/dL [facility] Interpretation and review of laboratory results Abnormal [facility] MCH (RBC) [Entitic mass] 27.8 pg 26. 0 - 34.0 pg [facility] MCHC (RBC) [Mass/Vol] 31.9 % 30.5 - 36.0 % [facility] MCV (RBC) [Entitic vol] 87.1 fL 77.0 - 99.0 fL [facility] Platelet mean volume (Bld) [Entitic vol] 10 fL 9.0 - 12.7 fL [facility] Platelets (Bld) [#/Vol] 265 10*3/uL 140 - 440 10*3/uL [facility] RBC (Bld) [#/Vol] 2.41 10*6/uL Low 4.40 - 5.9 0 10*6/uL [facility] WBC (Bld) [#/Vol] 8.7 10*3/uL 3.6 - 10.7 10*3/uL [facility] HBV surface Ab IA Qnon 01-26 [facility] HBV surface Ag IA Qlon 01-26 Interpretation and review of laboratory results Normal [facility] Hemoglobin (Bld) [Mass/Vol]o n 01-26-2025 Hematocrit (Bld) [Volume fraction] 27.9 % Low 40.0 - 52.0 % [facility] Interpretation and review of laboratory results Abnormal [facility] Hematocrit (Bld) [Volume fraction] 28.4 % Low 40.0 - 52.0 % [facility] Interpretation and review of laboratory results Abnormal [facility] Laboratory - Chemistry and C hemistry - challengeon 01-26-2025 Magnesium [Mass/Vol] 2 mg/dL 1.6 - 2 .6 mg/dL [facility] Laboratory - Coagulationon 0 01-26-2025 PT Coag (Bld) [Time] 18.3 s High 9.0 - 12.0 s [facility] Laboratory - Hematology and Cell countson 01-26-2025 Hemoglobin (Bld) [Mass/Vol] 9 g/dL Low 13.0 - 18.0 g/dL [facility] Hemoglobin (Bld) [Mass/Vol] 8.9 g/dL Low 13.0 - 18.0 g/dL [facility] Laboratory - Microbiology an d Antimicrobial susceptibilityon 01-26-2025 HBV surface Ab IA Qn mIU/mL [facility] HBV surface Ag IA Ql Not detected Not Detected [facility] Magnesium [Mass/Vol]on 01-26 Interpretation and review of laboratory results Normal [facility] No Panel Informationon 01-26 [facility] Blood Expiration Date [id number] S [facility] Crossmatch interpretation COMP [facility] Dispense Status Transfused [facility] lt Product Blood Type 9500 [facility] PRODUCT CODE [id number] [facility] ABO O [facility] Unit Number [id number] [facility] alth Unit RH Negative [facility] Unit Volume 300 mL [facility] Interpretation and review of laboratory results Abnormal [facility] PT Coag (Bld) [Time]on 01-26 INR Coag (PPP) [Relative time] 1.8 {INR} High 0.9 - 1.1 [facility] Phosphate [Moles/Vol]on Interpretation and review of laboratory results Abnormal [facility] Phosphate [Mass/Vol] 5.3 mg/dL High 2.3 - 4 .7 mg/dL [facility] aPTT Coag (Bld) [Time]on aPTT Coag (PPP) [Time] 41.6 s High 20.0 - 30.5 s [facility] Interpretation and review of laboratory results Abnormal [facility] aPTT Coag (PPP) [Time] 47 s High 20.0 - 30.5 s [facility] aPTT Coag (Bld) [Time]Ordere d By: Alan Santos on 01-26-2025 aPTT Coag (PPP) [Time] s Critically high 20.0 - 3 0.5 s [facility] Interpretation and review of laboratory results Abnormal [facility] Basic metabolic 1998 panelon 01-25-2025 Anion gap [Moles/Vol] 16 mmol/L High 3 - 13 mmol/L [facility] Calcium [Mass/Vol] 10.1 mg/dL 8.4 - 10. 2 mg/dL [facility] Chloride [Moles/Vol] 98 mmol/L 98 - 10 7 mmol/L [facility] CO2 [Moles/Vol] 24 mmol/L 22 - 29 mmol/L [facility] Creatinine [Mass/Vol] 2.54 mg/dL High 0.72 - 1.25 mg/dL [facility] GFR/1.73 sq M.predicted (S/P/Bld) [Vol rate/Area] 28.3 mL/min Low - PINF [facility] Glucose [Mass/Vol] 74 mg/dL 74 - 100 mg/dL [facility] Interpretation and review of laboratory results Abnormal [facility] Potassium [Moles/Vol] 3.9 mmol/L 3.5 - 5.1 mmol/L [facility] Sodium [Moles/Vol] 138 mmol/L 136 - 145 mmol/L [facility] Urea nitrogen [Mass/Vol] 15 mg/dL 9 - 23 mg/d L [facility] Blood type and Crossmatch pa freida (Bld)on 01-25-2025 ABO group Nom (Bld) O [facility] Blood group antibody screen GEL Ql Negative [facility] D [facility]) [facility] CBC panel Auto (Bld)on 01-25 Erythrocyte distribution width (RBC) [Ratio] 19.2 % High 11.5 - 15.0 % [facility] Hematocrit (Bld) [Volume fraction] 22.5 % Low 40.0 - 52.0 % [facility] Hemoglobin (Bld) [Mass/Vol] 7 g/dL Low 13.0 - 18.0 g/dL [facility] Interpretation and review of laboratory results Abnormal [facility] MCH (RBC) [Entitic mass] 27.6 pg 26. 0 - 34.0 pg [facility] MCHC (RBC) [Mass/Vol] 31.1 % 30.5 - 36.0 % [facility] MCV (RBC) [Entitic vol] 88.6 fL 77.0 - 99.0 fL [facility] Platelet mean volume (Bld) [Entitic vol] 8.8 fL Low 9.0 - 12.7 fL [facility] Platelets (Bld) [#/Vol] 285 10*3/uL 140 - 440 10*3/uL [facility] RBC (Bld) [#/Vol] 2.54 10*6/uL Low 4.40 - 5.9 0 10*6/uL [facility] WBC (Bld) [#/Vol] 10.2 10*3/uL 3.6 - 10.7 10*3/uL [facility] Hemoglobin (Bld) [Mass/Vol]o n 01-25-2025 Hematocrit (Bld) [Volume fraction] 23.8 % Low 40.0 - 52.0 % [facility] Interpretation and review of laboratory results Abnormal [facility] Hematocrit (Bld) [Volume fraction] 24.4 % Low 40.0 - 52.0 % [facility] Interpretation and review of laboratory results Abnormal [facility] Hematocrit (Bld) [Volume fraction] 24.6 % Low 40.0 - 52.0 % [facility] Interpretation and review of laboratory results Abnormal [facility] Hematocrit (Bld) [Volume fraction] 20.4 % Low 40.0 - 52.0 % [facility] Interpretation and review of laboratory results Abnormal [facility] Laboratory - Chemistry and C hemistry - challengeon 01-25-2025 Magnesium [Mass/Vol] 2.1 mg/dL 1.6 - 2 .6 mg/dL [facility] Laboratory - Coagulationon 0 01-25-2025 PT Coag (Bld) [Time] 17.4 s High 9.0 - 12.0 s [facility] PT Coag (Bld) [Time] 15.9 s High 9.0 - 12.0 s [facility] Laboratory - Hematology and Cell countson 01-25-2025 Hemoglobin (Bld) [Mass/Vol] 7.6 g/dL Low 13.0 - 18.0 g/dL [facility] Hemoglobin (Bld) [Mass/Vol] 7.7 g/dL Low 13.0 - 18.0 g/dL [facility] Hemoglobin (Bld) [Mass/Vol] 8 g/dL Low 13.0 - 18.0 g/dL [facility] Hemoglobin (Bld) [Mass/Vol] 6.3 g/dL Critically low 13.0 - 18.0 g/dL [facility] Laboratory - Microbiology an d Antimicrobial susceptibilityon 01-25-2025 A. baumannii DNA EMMANUEL+probe Ql (Unsp spec) Not detected Not Detected [facility] Laboratory - Microbiology an d Antimicrobial susceptibilityOrdered By: Petra Read on 01-25-2025 C. auris ITS2 gene EMMANUEL+probe Ql (Unsp spec) Not detected [facility] Magnesium [Mass/Vol]on 01-25 [facility] No Panel Informationon 01-25 Interpretation and review of laboratory results Normal [facility] Blood Expiration Date [id number] S [facility] Crossmatch interpretation COMP [facility] Dispense Status Transfused [facility] Product Blood Type 9500 [facility] PRODUCT CODE [id number] [facility] Unit ABO O [facility] Unit Number [id number] [facility] Unit RH Negative [facility] Unit Volume 300 mL [facility] Interpretation and review of laboratory results Normal [facility] No Panel InformationOrdered By: Petra Harris on 01-25-2025 Interpretation and review of laboratory results Normal [facility] PT Coag (Bld) [Time]on 01-25 INR Coag (PPP) [Relative time] 1.7 {INR} High 0.9 - 1.1 [facility] Interpretation and review of laboratory results Abnormal [facility] INR Coag (PPP) [Relative time] 1.5 {INR} High 0.9 - 1.1 [facility] Interpretation and review of laboratory results Abnormal [facility] Phosphate [Moles/Vol]on Phosphate [Mass/Vol] 3.9 mg/dL 2.3 - 4 .7 mg/dL [facility] RF videography Hypopharynx a nd Esophagus Views for swallowing function W speech and W barium contrast Juan Carlos 01-25-2025 [facility] SYSTEM [facility] Radiology Study observation (narrative) [facility] RF videography Hypopharynx a nd Esophagus Views for swallowing function W speech and W barium contrast POOrdered By: Sulaiman Harp on 01-25-2025 [facility] Work Phone: aPTT Coag (Bld) [Time]on aPTT Coag (PPP) [Time] s Critically high 20.0 - 3 0.5 s [facility] Interpretation and review of laboratory results Abnormal [facility] aPTT Coag (PPP) [Time] 83.1 s High 20.0 - 30.5 s [facility] Interpretation and review of laboratory results Abnormal [facility] aPTT Coag (PPP) [Time] 47.3 s High 20.0 - 30.5 s [facility] Interpretation and review of laboratory results Abnormal [facility] Basic metabolic 1998 panelon 01-24-2025 Anion gap [Moles/Vol] 12 mmol/L 3 - 13 mmol/L [facility] Calcium [Mass/Vol] 9.3 mg/dL 8.4 - 10. 2 mg/dL [facility] Chloride [Moles/Vol] 100 mmol/L 98 - 10 7 mmol/L [facility] CO2 [Moles/Vol] 26 mmol/L 22 - 29 mmol/L [facility] Creatinine [Mass/Vol] 1.47 mg/dL High 0.72 - 1.25 mg/dL [facility] GFR/1.73 sq M.predicted (S/P/Bld) [Vol rate/Area] 54.6 mL/min Low - PINF [facility] Glucose [Mass/Vol] 77 mg/dL 74 - 100 mg/dL [facility] Interpretation and review of laboratory results Abnormal [facility] Potassium [Moles/Vol] 3.5 mmol/L 3.5 - 5.1 mmol/L [facility] Sodium [Moles/Vol] 138 mmol/L 136 - 145 mmol/L [facility] Urea nitrogen [Mass/Vol] 9 mg/dL 9 - 23 mg/d L [facility] Anion gap [Moles/Vol] 20 mmol/L High 3 - 13 mmol/L [facility] Calcium [Mass/Vol] 10.2 mg/dL 8.4 - 10. 2 mg/dL [facility] Chloride [Moles/Vol] 98 mmol/L 98 - 10 7 mmol/L [facility] CO2 [Moles/Vol] 21 mmol/L Low 22 - 29 mmol/L [facility] Creatinine [Mass/Vol] 3.62 mg/dL High 0.72 - 1.25 mg/dL [facility] GFR/1.73 sq M.predicted (S/P/Bld) [Vol rate/Area] 18.5 mL/min Low - PINF [facility] Glucose [Mass/Vol] 74 mg/dL 74 - 100 mg/dL [facility] Potassium [Moles/Vol] 4 mmol/L 3.5 - 5.1 mmol/L [facility] Sodium [Moles/Vol] 139 mmol/L 136 - 145 mmol/L [facility] Urea nitrogen [Mass/Vol] 27 mg/dL High 9 - 23 mg/d L [facility] CBC panel Auto (Bld)Ordered By: Liseth Granado on 01-24-2025 Erythrocyte distribution width (RBC) [Ratio] 19.4 % High 11.5 - 15.0 % [facility] Hematocrit (Bld) [Volume fraction] 27 % Low 40.0 - 52.0 % [facility] Hemoglobin (Bld) [Mass/Vol] 8 g/dL Low 13.0 - 18.0 g/dL [facility] Interpretation and review of laboratory results Abnormal [facility] MCH (RBC) [Entitic mass] 27.9 pg 26. 0 - 34.0 pg [facility] MCHC (RBC) [Mass/Vol] 29.6 % Low 30.5 - 36.0 % [facility] MCV (RBC) [Entitic vol] 94.1 fL 77.0 - 99.0 fL [facility] Platelet mean volume (Bld) [Entitic vol] 9.2 fL 9.0 - 12.7 fL [facility] Platelets (Bld) [#/Vol] 355 10*3/uL 140 - 440 10*3/uL [facility] RBC (Bld) [#/Vol] 2.87 10*6/uL Low 4.40 - 5.9 0 10*6/uL [facility] WBC (Bld) [#/Vol] 11.5 10*3/uL High 3.6 - 10.7 10*3/uL [facility] Hemoglobin (Bld) [Mass/Vol]o n 01-24-2025 Hematocrit (Bld) [Volume fraction] 23 % Low 40.0 - 52.0 % [facility] Interpretation and review of laboratory results Abnormal [facility] Laboratory - Chemistry and C hemistry - challengeon 01-24-2025 Lactate [Moles/Vol] 0.9 mmol/L 0.5 - 2. 2 mmol/L [facility] Laboratory - Chemistry and C hemistry - challengeOrdered By: Farhat Simons on 01-24-2025 Beta hydroxybutyrate [Mass/Vol] 10.5 mg/dL High NINF - 2.8 mg/dL [facility] Laboratory - Chemistry and C hemistry - challengeOrdered By: Anu Graham on 01-24-2025 Magnesium [Mass/Vol] 2.3 mg/dL 1.6 - 2 .6 mg/dL [facility] Laboratory - Coagulationon 0 01-24-2025 PT Coag (Bld) [Time] 15.1 s High 9.0 - 12.0 s [facility] PT Coag (Bld) [Time] 15.6 s High 9.0 - 12.0 s [facility] Laboratory - Hematology and Cell countson 01-24-2025 Hemoglobin (Bld) [Mass/Vol] 7.3 g/dL Low 13.0 - 18.0 g/dL [facility] Magnesium [Mass/Vol]Ordered By: Anu Graham on 01-24-2025 Interpretation and review of laboratory results Normal [facility] No Panel Informationon 01-24 Interpretation and review of laboratory results Abnormal [facility] Interpretation and review of laboratory results Normal [facility] Interpretation and review of laboratory results Abnormal [facility] [facility] Blood Expiration Date S [facility] Crossnctch interpretation COMP [facility] Dispense Status Released from [email or web address] [facility] Product Blood Type 9500 [facility] PRODUCT CODE [id number] [facility] Unit ABO O [facility] Unit Number [id number] [facility] alth Unit RH Negative [facility] Unit Volume 300 mL [facility] No Panel InformationOrdered By: Farhat Simons on 01-24-2025 Interpretation and review of laboratory results Abnormal [facility] No Panel InformationOrdered By: Anu Graham on 01-24-2025 [facility] PT Coag (Bld) [Time]on 01-24 INR Coag (PPP) [Relative time] 1.5 {INR} High 0.9 - 1.1 [facility] INR Coag (PPP) [Relative time] 1.5 {INR} High 0.9 - 1.1 [facility] Interpretation and review of laboratory results Abnormal [facility] Phosphate [Moles/Vol]on 12-28 Phosphate [Mass/Vol] 5.1 mg/dL High 2.3 - 4 .7 mg/dL [facility] XR Chest Single viewon 01-24 [facility] Radiology Study observation (narrative) [facility] aPTT Coag (Bld) [Time]on aPTT Coag (PPP) [Time] 33.7 s High 20.0 - 30.5 s [facility] aPTT Coag (Bld) [Time]Ordere d By: Callie Steele on 01-24-2025 aPTT Coag (PPP) [Time] 114.7 s High 20.0 - 30.5 s [facility] Interpretation and review of laboratory results Abnormal [facility] Basic metabolic 1998 panelon 01-23-2025 Anion gap [Moles/Vol] 13 mmol/L 3 - 13 mmol/L [facility] Calcium [Mass/Vol] 9.4 mg/dL 8.4 - 10. 2 mg/dL [facility] Chloride [Moles/Vol] 102 mmol/L 98 - 10 7 mmol/L [facility] CO2 [Moles/Vol] 25 mmol/L 22 - 29 mmol/L [facility] Creatinine [Mass/Vol] 2.34 mg/dL High 0.72 - 1.25 mg/dL [facility] GFR/1.73 sq M.predicted (S/P/Bld) [Vol rate/Area] 31.3 mL/min Low - PINF [facility] Glucose [Mass/Vol] 80 mg/dL 74 - 100 mg/dL [facility] Interpretation and review of laboratory results Abnormal [facility] Potassium [Moles/Vol] 3.4 mmol/L Low 3.5 - 5.1 mmol/L [facility] Sodium [Moles/Vol] 140 mmol/L 136 - 145 mmol/L [facility] Urea nitrogen [Mass/Vol] 22 mg/dL 9 - 23 mg/d L [facility] CBC W Auto Differential pane l (Bld)on 01-23-2025 Basophils (Bld) [#/Vol] 0.1 10*3/uL 0.0 - 0.2 10*3/uL [facility] Basophils/100 WBC (Bld) 1 % 0.0 - 2.0 % [facility] Eosinophils (Bld) [#/Vol] 0.7 10*3/uL High 0.0 - 0.5 10*3/uL [facility] Eosinophils/100 WBC (Bld) 6.8 % High 0.0 - 6.0 % [facility] Erythrocyte distribution width (RBC) [Ratio] 18.8 % High 11.5 - 15.0 % [facility] Hematocrit (Bld) [Volume fraction] 25.3 % Low 40.0 - 52.0 % [facility] Hemoglobin (Bld) [Mass/Vol] 7.9 g/dL Low 13.0 - 18.0 g/dL [facility] Immature granulocytes (Bld) [#/Vol] 0.1 10*3/uL High NINF - 0.1 10*3/uL [facility] Immature granulocytes/100 WBC (Bld) 1.1 % 0.0 - 2.0 % [facility] Interpretation and review of laboratory results Abnormal [facility] Lymphocytes (Bld) [#/Vol] 1.5 10*3/uL 1.0 - 4.3 10*3/uL [facility] Lymphocytes/100 WBC (Bld) 13.7 % Low 15.0 - 45.0 % [facility] MCH (RBC) [Entitic mass] 27.9 pg 26. 0 - 34.0 pg [facility] MCHC (RBC) [Mass/Vol] 31.2 % 30.5 - 36.0 % [facility] MCV (RBC) [Entitic vol] 89.4 fL 77.0 - 99.0 fL [facility] Monocytes (Bld) [#/Vol] 1.5 10*3/uL High 0.0 - 0.9 10*3/uL [facility] Monocytes/100 WBC (Bld) 13.7 % High 5.0 - 13.0 % [facility] Neutrophils (Bld) [#/Vol] 7 10*3/uL 1.8 - 7.5 10*3/uL [facility] Neutrophils/100 WBC (Bld) 63.7 % 38.0 - 82.0 % [facility] Nucleated RBC/100 WBC (Bld) [Ratio] 0 % [facility] Platelet mean volume (Bld) [Entitic vol] 9.4 fL 9.0 - 12.7 fL [facility] Platelets (Bld) [#/Vol] 346 10*3/uL 140 - 440 10*3/uL [facility] RBC (Bld) [#/Vol] 2.83 10*6/uL Low 4.40 - 5.9 0 10*6/uL [facility] WBC (Bld) [#/Vol] 10.9 10*3/uL High 3.6 - 10.7 10*3/uL [facility] Basophils (Bld) [#/Vol] 0.1 10*3/uL 0.0 - 0.2 10*3/uL [facility] Basophils/100 WBC (Bld) 1.1 % 0.0 - 2.0 % [facility] Eosinophils (Bld) [#/Vol] 0.9 10*3/uL High 0.0 - 0.5 10*3/uL [facility] Eosinophils/100 WBC (Bld) 8 % High 0.0 - 6.0 % [facility] Erythrocyte distribution width (RBC) [Ratio] 18.5 % High 11.5 - 15.0 % [facility] Hematocrit (Bld) [Volume fraction] 23.4 % Low 40.0 - 52.0 % [facility] Hemoglobin (Bld) [Mass/Vol] 7.3 g/dL Low 13.0 - 18.0 g/dL [facility] Immature granulocytes (Bld) [#/Vol] 0.1 10*3/uL High NINF - 0.1 10*3/uL [facility] Immature granulocytes/100 WBC (Bld) 1.1 % 0.0 - 2.0 % [facility] Interpretation and review of laboratory results Abnormal [facility] Lymphocytes (Bld) [#/Vol] 1.4 10*3/uL 1.0 - 4.3 10*3/uL [facility] Lymphocytes/100 WBC (Bld) 12.2 % Low 15.0 - 45.0 % [facility] MCH (RBC) [Entitic mass] 27.7 pg 26. 0 - 34.0 pg [facility] MCHC (RBC) [Mass/Vol] 31.2 % 30.5 - 36.0 % [facility] MCV (RBC) [Entitic vol] 88.6 fL 77.0 - 99.0 fL [facility] Monocytes (Bld) [#/Vol] 1.4 10*3/uL High 0.0 - 0.9 10*3/uL [facility] Monocytes/100 WBC (Bld) 12.9 % 5.0 - 13.0 % [facility] Neutrophils (Bld) [#/Vol] 7.2 10*3/uL 1.8 - 7.5 10*3/uL [facility] Neutrophils/100 WBC (Bld) 64.7 % 38.0 - 82.0 % [facility] Nucleated RBC/100 WBC (Bld) [Ratio] 0 % [facility] Platelet mean volume (Bld) [Entitic vol] 9.1 fL 9.0 - 12.7 fL [facility] Platelets (Bld) [#/Vol] 345 10*3/uL 140 - 440 10*3/uL [facility] RBC (Bld) [#/Vol] 2.64 10*6/uL Low 4.40 - 5.9 0 10*6/uL [facility] WBC (Bld) [#/Vol] 11.1 10*3/uL High 3.6 - 10.7 10*3/uL [facility] Hemoglobin (Bld) [Mass/Vol]o n 01-23-2025 Hematocrit (Bld) [Volume fraction] 25.1 % Low 40.0 - 52.0 % [facility] Interpretation and review of laboratory results Abnormal [facility] Laboratory - Chemistry and C hemistry - challengeon 01-23-2025 Glucose [Mass/Vol] 113 mg/dL High 70 - 100 mg/dL [facility] Glucose [Mass/Vol] 92 mg/dL 70 - 100 mg/dL [facility] Magnesium [Mass/Vol] 2.1 mg/dL 1.6 - 2 .6 mg/dL [facility] Laboratory - Coagulationon 0 01-23-2025 aPTT Coag (PPP) [Time] 30.6 s High 20.0 - 30.5 s [facility] INR Coag (PPP) [Relative time] 1.6 {INR} High 0.9 - 1.1 [facility] PT Coag (Bld) [Time] 16.1 s High 9.0 - 12.0 s [facility] PT Coag (Bld) [Time] 20 s High 9.0 - 12.0 s [facility] Laboratory - Hematology and Cell countson 01-23-2025 Hemoglobin (Bld) [Mass/Vol] 7.9 g/dL Low 13.0 - 18.0 g/dL [facility] Magnesium [Mass/Vol]on 01-23 Interpretation and review of laboratory results Normal [facility] No Panel Informationon 01-23 Interpretation and review of laboratory results Abnormal [facility] Interpretation and review of laboratory results Abnormal [facility] Interpretation and review of laboratory results Normal [facility] PT Coag (Bld) [Time]on 01-23 INR Coag (PPP) [Relative time] 2 {INR} High 0.9 - 1.1 [facility] Interpretation and review of laboratory results Abnormal [facility] Phosphate [Moles/Vol]Ordered By: Jenni Romano on 01-23-2025 Interpretation and review of laboratory results Normal [facility] Phosphate [Mass/Vol] 4.5 mg/dL 2.3 - 4 .7 mg/dL [facility] Basic metabolic 1998 panelOr dered By: Nathaly Dobson on 01-22-2025 Anion gap [Moles/Vol] 13 mmol/L 3 - 13 mmol/L [facility] Calcium [Mass/Vol] 9.8 mg/dL 8.4 - 10. 2 mg/dL [facility] Chloride [Moles/Vol] 94 mmol/L Low 98 - 10 7 mmol/L [facility] CO2 [Moles/Vol] 25 mmol/L 22 - 29 mmol/L [facility] Creatinine [Mass/Vol] 4.18 mg/dL High 0.72 - 1.25 mg/dL [facility] GFR/1.73 sq M.predicted (S/P/Bld) [Vol rate/Area] 15.6 mL/min Low - PINF [facility] Glucose [Mass/Vol] 70 mg/dL Low 74 - 100 mg/dL [facility] Interpretation and review of laboratory results Abnormal [facility] Potassium [Moles/Vol] 4.4 mmol/L 3.5 - 5.1 mmol/L [facility] Sodium [Moles/Vol] 132 mmol/L Low 136 - 145 mmol/L [facility] Urea nitrogen [Mass/Vol] 53 mg/dL High 9 - 23 mg/d L [facility] CBC W Auto Differential pane l (Bld)Ordered By: Tiffanie Chand on 01-22-2025 Basophils (Bld) [#/Vol] 0.1 10*3/uL 0.0 - 0.2 10*3/uL [facility] Basophils/100 WBC (Bld) 0.8 % 0.0 - 2.0 % [facility] Eosinophils (Bld) [#/Vol] 0.7 10*3/uL High 0.0 - 0.5 10*3/uL [facility] Eosinophils/100 WBC (Bld) 6.1 % High 0.0 - 6.0 % [facility] Erythrocyte distribution width (RBC) [Ratio] 18.4 % High 11.5 - 15.0 % [facility] Hematocrit (Bld) [Volume fraction] 23.9 % Low 40.0 - 52.0 % [facility] Hemoglobin (Bld) [Mass/Vol] 7.4 g/dL Low 13.0 - 18.0 g/dL [facility] Immature granulocytes (Bld) [#/Vol] 0.1 10*3/uL High NINF - 0.1 10*3/uL [facility] Immature granulocytes/100 WBC (Bld) 1.1 % 0.0 - 2.0 % [facility] Interpretation and review of laboratory results Abnormal [facility] Lymphocytes (Bld) [#/Vol] 1 10*3/uL 1.0 - 4.3 10*3/uL [facility] Lymphocytes/100 WBC (Bld) 9.7 % Low 15.0 - 45.0 % [facility] MCH (RBC) [Entitic mass] 27.5 pg 26. 0 - 34.0 pg [facility] MCHC (RBC) [Mass/Vol] 31 % 30.5 - 36.0 % [facility] MCV (RBC) [Entitic vol] 88.8 fL 77.0 - 99.0 fL [facility] Monocytes (Bld) [#/Vol] 1.5 10*3/uL High 0.0 - 0.9 10*3/uL [facility] Monocytes/100 WBC (Bld) 14.5 % High 5.0 - 13.0 % [facility] Neutrophils (Bld) [#/Vol] 7.2 10*3/uL 1.8 - 7.5 10*3/uL [facility] Neutrophils/100 WBC (Bld) 67.8 % 38.0 - 82.0 % [facility] Nucleated RBC/100 WBC (Bld) [Ratio] 0 % [facility] Platelet mean volume (Bld) [Entitic vol] 8.2 fL Low 9.0 - 12.7 fL [facility] Platelets (Bld) [#/Vol] 292 10*3/uL 140 - 440 10*3/uL [facility] RBC (Bld) [#/Vol] 2.69 10*6/uL Low 4.40 - 5.9 0 10*6/uL [facility] WBC (Bld) [#/Vol] 10.6 10*3/uL 3.6 - 10.7 10*3/uL [facility] CBC W Auto Differential pane l (Bld)on 01-22-2025 Basophils (Bld) [#/Vol] 0.1 10*3/uL 0.0 - 0.2 10*3/uL [facility] Basophils/100 WBC (Bld) 1.1 % 0.0 - 2.0 % [facility] Eosinophils (Bld) [#/Vol] 0.8 10*3/uL High 0.0 - 0.5 10*3/uL [facility] Eosinophils/100 WBC (Bld) 7.9 % High 0.0 - 6.0 % [facility] Erythrocyte distribution width (RBC) [Ratio] 18.6 % High 11.5 - 15.0 % [facility] Hematocrit (Bld) [Volume fraction] 25.1 % Low 40.0 - 52.0 % [facility] Hemoglobin (Bld) [Mass/Vol] 8 g/dL Low 13.0 - 18.0 g/dL [facility] Immature granulocytes (Bld) [#/Vol] 0.1 10*3/uL High NINF - 0.1 10*3/uL [facility] Immature granulocytes/100 WBC (Bld) 0.8 % 0.0 - 2.0 % [facility] Interpretation and review of laboratory results Abnormal [facility] Lymphocytes (Bld) [#/Vol] 1.5 10*3/uL 1.0 - 4.3 10*3/uL [facility] Lymphocytes/100 WBC (Bld) 14.1 % Low 15.0 - 45.0 % [facility] MCH (RBC) [Entitic mass] 27.7 pg 26. 0 - 34.0 pg [facility] MCHC (RBC) [Mass/Vol] 31.9 % 30.5 - 36.0 % [facility] MCV (RBC) [Entitic vol] 86.9 fL 77.0 - 99.0 fL [facility] Monocytes (Bld) [#/Vol] 1.5 10*3/uL High 0.0 - 0.9 10*3/uL [facility] Monocytes/100 WBC (Bld) 14 % High 5.0 - 13.0 % [facility] Neutrophils (Bld) [#/Vol] 6.6 10*3/uL 1.8 - 7.5 10*3/uL [facility] Neutrophils/100 WBC (Bld) 62.1 % 38.0 - 82.0 % [facility] Nucleated RBC/100 WBC (Bld) [Ratio] 0 % [facility] Platelet mean volume (Bld) [Entitic vol] 8.8 fL Low 9.0 - 12.7 fL [facility] Platelets (Bld) [#/Vol] 330 10*3/uL 140 - 440 10*3/uL [facility] RBC (Bld) [#/Vol] 2.89 10*6/uL Low 4.40 - 5.9 0 10*6/uL [facility] WBC (Bld) [#/Vol] 10.6 10*3/uL 3.6 - 10.7 10*3/uL [facility] Coagulation index TEG Qn (Bl [...] 73 mm High 50 - 70 mm [facility] Clot formation.extrinsic coagulation system activated Rotational TEG (Bld) [Time] 76 mm High 52 - 70 mm [facility] Clot formation.extrinsic coagulation system activated.fibrinolysis suppressed Rotational TEG (Bld) [Time] 44 s Low 48 - 127 s [facility] Clot formation.extrinsic coagulation system activated.fibrinolysis suppressed Rotational TEG (Bld) [Time] 33 mm [facility] Clot formation.extrinsic coagulation system activated.fibrinolysis suppressed Rotational TEG (Bld) [Time] 35 mm [facility] Clot formation.extrinsic coagulation system activated.fibrinolysis suppressed Rotational TEG (Bld) [Time] 36 mm High 7 - 24 mm [facility] Clotting time.extrinsic coagulation system activated.fibrinolysis suppressed Rotational TEG (Bld) 232 s High 43 - 82 s [facility] Interpretation and review of laboratory results Abnormal [facility] Maximum clot firmness.extrinsic coagulation system activated.fibrinolysis suppressed Rotational TEG (Bld) [Length] 75 mm High 52 - 70 mm [facility] Hemoglobin (Bld) [Mass/Vol]o n 01-22-2025 Hematocrit (Bld) [Volume fraction] 24.5 % Low 40.0 - 52.0 % [facility] Interpretation and review of laboratory results Abnormal [facility] Hepatic function 2000 panelo n 01-22-2025 Albumin [Mass/Vol] 2.2 g/dL Low 3.5 - 5.0 g/dL [facility] ALP [Catalytic activity/Vol] 274 U/L High 40 - 150 U/L [facility] ALT [Catalytic activity/Vol] 44 U/L [facility] AST [Catalytic activity/Vol] 51 U/L High [facility] - 34 U/L [facility] Bilirubin [Mass/Vol] 0.9 mg/dL [facility] mg/dL [facility] Bilirubin.conjugated [Mass/Vol] 0.7 mg/dL High [facility] - 0.5 mg/dL [facility] Protein [Mass/Vol] 7.6 g/dL 6.4 - 8.3 g/dL [facility] Laboratory - Chemistry and C hemistry - challengeon 01-22-2025 Glucose [Mass/Vol] 101 mg/dL High 70 - 100 mg/dL [facility] Glucose [Mass/Vol] 77 mg/dL 70 - 100 mg/dL [facility] Glucose [Mass/Vol] 81 mg/dL 70 - 100 mg/dL [facility] Magnesium [Mass/Vol] 2.6 mg/dL 1.6 - 2 .6 mg/dL [facility] Glucose [Mass/Vol] 82 mg/dL 70 - 100 mg/dL [facility] Laboratory - Coagulationon 0 01-22-2025 aPTT Coag (PPP) [Time] 42.7 s High 20.0 - 30.5 s [facility] INR Coag (PPP) [Relative time] 3.1 {INR} High 0.9 - 1.1 [facility] PT Coag (Bld) [Time] 31 s High 9.0 - 12.0 s [facility] Fibrin D-dimer FEU (PPP) [Mass/Vol] 14.21 mg/L High NINF - 0.50 mg/L [facility] Fibrinogen Coag (PPP) [Mass/Vol] 436 mg/dL High 200 - 400 mg/dL [facility] Laboratory - CoagulationOrde red By: Maggy Lancaster on 01-22-2025 aPTT Coag (PPP) [Time] 48.1 s High 20.0 - 30.5 s [facility] INR Coag (PPP) [Relative time] 5.5 {INR} Critically high 0.9 - 1.1 [facility] PT Coag (Bld) [Time] 52.6 s High 9.0 - 12.0 s [facility] Laboratory - CoagulationOrde red By: Michelle Olmstead on 01-22-2025 PT Coag (Bld) [Time] 75.4 s High 9.0 - 12.0 s [facility] - Hematology and Cell countson 01-22-2025 Hemoglobin (Bld) [Mass/Vol] 7.7 g/dL Low 13.0 - 18.0 g/dL [facility] Magnesium [Mass/Vol]on 01-22 Interpretation and review of laboratory results Normal [facility] No Panel Informationon 01-22 Interpretation and review of laboratory results Abnormal [facility] Interpretation and review of laboratory results Abnormal [facility] Blood Expiration Date [id number] [facility] Dispense Status Transf[facility] Product Blood Type 6200 [facility] PRODUCT CODE [id number] [facility] ABO A [facility] Unit Number [id number] [facility] alth Unit RH Positive [facility] Unit Volume 209 ml [facility] Interpretation and review of laboratory results Normal [facility] Interpretation and review of laboratory results Normal [facility] Interpretation and review of laboratory results Abnormal [facility] Interpretation and review of laboratory results Abnormal [facility] Interpretation and review of laboratory results Normal [facility] No Panel InformationOrdered By: Maggy Lancaster on 01-22-2025 Interpretation and review of laboratory results Abnormal [facility] PT Coag (Bld) [Time]Ordered By: Michelle Olmstead on 01-22-2025 INR Coag (PPP) [Relative time] 8.1 {INR} Critically high 0.9 - 1.1 [facility] Interpretation and review of laboratory results Abnormal [facility] Phosphate [Moles/Vol]on 12-27 Phosphate [Mass/Vol] 6.8 mg/dL High 2.3 - 4 .7 mg/dL [facility] aPTT Coag (Bld) [Time]on aPTT Coag (PPP) [Time] 46 s High 20.0 - 30.5 s [facility] Basic metabolic 1998 panelOr dered By: Jarred José on 01-21-2025 Anion gap [Moles/Vol] 15 mmol/L High 3 - 13 mmol/L [facility] Calcium [Mass/Vol] 9.9 mg/dL 8.4 - 10. 2 mg/dL [facility] Chloride [Moles/Vol] 96 mmol/L Low 98 - 10 7 mmol/L [facility] CO2 [Moles/Vol] 24 mmol/L 22 - 29 mmol/L [facility] Creatinine [Mass/Vol] 2.99 mg/dL High 0.72 - 1.25 mg/dL [facility] GFR/1.73 sq M.predicted (S/P/Bld) [Vol rate/Area] 23.3 mL/min Low - PINF [facility] Glucose [Mass/Vol] 60 mg/dL Low 74 - 100 mg/dL [facility] Interpretation and review of laboratory results Abnormal [facility] Potassium [Moles/Vol] 4.3 mmol/L 3.5 - 5.1 mmol/L [facility] Sodium [Moles/Vol] 135 mmol/L Low 136 - 145 mmol/L [facility] Urea nitrogen [Mass/Vol] 46 mg/dL High 9 - 23 mg/d L [facility] CBC W Auto Differential pane l (Bld)on 01-21-2025 Basophils (Bld) [#/Vol] 0.1 10*3/uL 0.0 - 0.2 10*3/uL [facility] Basophils/100 WBC (Bld) 1 % 0.0 - 2.0 % [facility] Eosinophils (Bld) [#/Vol] 0.4 10*3/uL 0.0 - 0.5 10*3/uL [facility] Eosinophils/100 WBC (Bld) 3.8 % 0.0 - 6.0 % [facility] Erythrocyte distribution width (RBC) [Ratio] 18.6 % High 11.5 - 15.0 % [facility] Hematocrit (Bld) [Volume fraction] 27.3 % Low 40.0 - 52.0 % [facility] Hemoglobin (Bld) [Mass/Vol] 8.3 g/dL Low 13.0 - 18.0 g/dL [facility] Immature granulocytes (Bld) [#/Vol] 0.1 10*3/uL High NINF - 0.1 10*3/uL [facility] Immature granulocytes/100 WBC (Bld) 1.2 % 0.0 - 2.0 % [facility] Interpretation and review of laboratory results Abnormal [facility] Lymphocytes (Bld) [#/Vol] 1.7 10*3/uL 1.0 - 4.3 10*3/uL [facility] Lymphocytes/100 WBC (Bld) 16.5 % 15.0 - 45.0 % [facility] MCH (RBC) [Entitic mass] 27 pg 26. 0 - 34.0 pg [facility] MCHC (RBC) [Mass/Vol] 30.4 % Low 30.5 - 36.0 % [facility] MCV (RBC) [Entitic vol] 88.9 fL 77.0 - 99.0 fL [facility] Monocytes (Bld) [#/Vol] 1.4 10*3/uL High 0.0 - 0.9 10*3/uL [facility] Monocytes/100 WBC (Bld) 14.3 % High 5.0 - 13.0 % [facility] Neutrophils (Bld) [#/Vol] 6.4 10*3/uL 1.8 - 7.5 10*3/uL [facility] Neutrophils/100 WBC (Bld) 63.2 % 38.0 - 82.0 % [facility] Nucleated RBC/100 WBC (Bld) [Ratio] 0 % [facility] Platelet mean volume (Bld) [Entitic vol] 8.7 fL Low 9.0 - 12.7 fL [facility] Platelets (Bld) [#/Vol] 365 10*3/uL 140 - 440 10*3/uL [facility] RBC (Bld) [#/Vol] 3.07 10*6/uL Low 4.40 - 5.9 0 10*6/uL [facility] WBC (Bld) [#/Vol] 10.1 10*3/uL 3.6 - 10.7 10*3/uL [facility] CBC panel Auto (Bld)Ordered By: Piedad Alvarado on 01-21-2025 Erythrocyte distribution width (RBC) [Ratio] 18.6 % High 11.5 - 15.0 % [facility] Hematocrit (Bld) [Volume fraction] 25.3 % Low 40.0 - 52.0 % [facility] Hemoglobin (Bld) [Mass/Vol] 8 g/dL Low 13.0 - 18.0 g/dL [facility] Interpretation and review of laboratory results Abnormal [facility] MCH (RBC) [Entitic mass] 27.7 pg 26. 0 - 34.0 pg [facility] MCHC (RBC) [Mass/Vol] 31.6 % 30.5 - 36.0 % [facility] MCV (RBC) [Entitic vol] 87.5 fL 77.0 - 99.0 fL [facility] Platelet mean volume (Bld) [Entitic vol] 9.1 fL 9.0 - 12.7 fL [facility] Platelets (Bld) [#/Vol] 353 10*3/uL 140 - 440 10*3/uL [facility] RBC (Bld) [#/Vol] 2.89 10*6/uL Low 4.40 - 5.9 0 10*6/uL [facility] WBC (Bld) [#/Vol] 9.2 10*3/uL 3.6 - 10.7 10*3/uL [facility] Hemoglobin (Bld) [Mass/Vol]o n 01-21-2025 Hematocrit (Bld) [Volume fraction] 22.4 % Low 40.0 - 52.0 % [facility] Interpretation and review of laboratory results Abnormal [facility] Laboratory - Chemistry and C hemistry - challengeon 01-21-2025 Glucose [Mass/Vol] 86 mg/dL 70 - 100 mg/dL [facility] Glucose [Mass/Vol] 92 mg/dL 70 - 100 mg/dL [facility] Glucose [Mass/Vol] 92 mg/dL 70 - 100 mg/dL [facility] Glucose [Mass/Vol] 107 mg/dL High 70 - 100 mg/dL [facility] Glucose [Mass/Vol] 129 mg/dL High 70 - 100 mg/dL [facility] Glucose [Mass/Vol] 67 mg/dL Low 70 - 100 mg/dL [facility] Magnesium [Mass/Vol] 2.5 mg/dL 1.6 - 2 .6 mg/dL [facility] Glucose [Mass/Vol] 74 mg/dL 70 - 100 mg/dL [facility] Laboratory - CoagulationOrde red By: Treva Mcfarland on 01-21-2025 PT Coag (Bld) [Time] 73.5 s High 9.0 - 12.0 s [facility] - Hematology and Cell countson 01-21-2025 Hemoglobin (Bld) [Mass/Vol] 7.1 g/dL Low 13.0 - 18.0 g/dL [facility] Magnesium [Mass/Vol]on 01-21 Interpretation and review of laboratory results [facility] [facility] No Panel Informationon 01-21 Interpretation and review of laboratory results Normal [facility] Interpretation and review of laboratory results Normal [facility] Interpretation and review of laboratory results Normal [facility] Interpretation and review of laboratory results Abnormal [facility] Interpretation and review of laboratory results Abnormal [facility] Interpretation and review of laboratory results Abnormal [facility] Interpretation and review of laboratory results Normal [facility] PT Coag (Bld) [Time]Ordered By: Treva Mcfarland on 01-21-2025 INR Coag (PPP) [Relative time] 7.9 {INR} Critically high 0.9 - 1.1 [facility] Interpretation and review of laboratory results Abnormal [facility] Phosphate [Moles/Vol]on 12-27 Interpretation and review of laboratory results Abnormal [facility] Phosphate [Mass/Vol] 5.3 mg/dL High 2.3 - 4 .7 mg/dL [facility] Basic metabolic 1998 panelon 01-20-2025 Anion gap [Moles/Vol] 15 mmol/L High 3 - 13 mmol/L [facility] Calcium [Mass/Vol] 9.2 mg/dL 8.4 - 10. 2 mg/dL [facility] Chloride [Moles/Vol] 98 mmol/L 98 - 10 7 mmol/L [facility] CO2 [Moles/Vol] 22 mmol/L 22 - 29 mmol/L [facility] Creatinine [Mass/Vol] 4.31 mg/dL High 0.72 - 1.25 mg/dL [facility] GFR/1.73 sq M.predicted (S/P/Bld) [Vol rate/Area] 15 mL/min Low - PINF [facility] Glucose [Mass/Vol] 68 mg/dL Low 74 - 100 mg/dL [facility] Interpretation and review of laboratory results Abnormal [facility] Potassium [Moles/Vol] 4.8 mmol/L 3.5 - 5.1 mmol/L [facility] Sodium [Moles/Vol] 135 mmol/L Low 136 - 145 mmol/L [facility] Urea nitrogen [Mass/Vol] 91 mg/dL High 9 - 23 mg/d L [facility] Blood type and Crossmatch pa freida (Bld)on 01-20-2025 ABO group Nom (Bld) O [facility] Blood group antibody screen GEL Ql Negative [facility] D Ag Ql (RBC) Negative [facility] CBC W Auto Differential pane l (Bld)Ordered By: Haley Vitale on 01-20-2025 Basophils (Bld) [#/Vol] 0.1 10*3/uL 0.0 - 0.2 10*3/uL [facility] Basophils/100 WBC (Bld) 1.1 % 0.0 - 2.0 % [facility] Eosinophils (Bld) [#/Vol] 0.5 10*3/uL 0.0 - 0.5 10*3/uL [facility] Eosinophils/100 WBC (Bld) 4.5 % 0.0 - 6.0 % [facility] Erythrocyte distribution width (RBC) [Ratio] 18.3 % High 11.5 - 15.0 % [facility] Hematocrit (Bld) [Volume fraction] 21.3 % Low 40.0 - 52.0 % [facility] Hemoglobin (Bld) [Mass/Vol] 6.6 g/dL Critically low 13.0 - 18.0 g/dL [facility] Immature granulocytes (Bld) [#/Vol] 0.1 10*3/uL High NINF - 0.1 10*3/uL [facility] Immature granulocytes/100 WBC (Bld) 1 % 0.0 - 2.0 % [facility] Interpretation and review of laboratory results Abnormal [facility] Lymphocytes (Bld) [#/Vol] 1.2 10*3/uL 1.0 - 4.3 10*3/uL [facility] Lymphocytes/100 WBC (Bld) 11.6 % Low 15.0 - 45.0 % [facility] MCH (RBC) [Entitic mass] 27.4 pg 26. 0 - 34.0 pg [facility] MCHC (RBC) [Mass/Vol] 31 % 30.5 - 36.0 % [facility] MCV (RBC) [Entitic vol] 88.4 fL 77.0 - 99.0 fL [facility] Monocytes (Bld) [#/Vol] 1.1 10*3/uL High 0.0 - 0.9 10*3/uL [facility] Monocytes/100 WBC (Bld) 10.1 % 5.0 - 13.0 % [facility] Neutrophils (Bld) [#/Vol] 7.5 10*3/uL 1.8 - 7.5 10*3/uL [facility] Neutrophils/100 WBC (Bld) 71.7 % 38.0 - 82.0 % [facility] Nucleated RBC/100 WBC (Bld) [Ratio] 0 % [facility] Platelet mean volume (Bld) [Entitic vol] 9 fL 9.0 - 12.7 fL [facility] Platelets (Bld) [#/Vol] 279 10*3/uL 140 - 440 10*3/uL [facility] RBC (Bld) [#/Vol] 2.41 10*6/uL Low 4.40 - 5.9 0 10*6/uL [facility] WBC (Bld) [#/Vol] 10.5 10*3/uL 3.6 - 10.7 10*3/uL [facility] CT Abdomen and Pelvis W cont rast Dimitrios 01-20-2025 [facility] RAD[facility]OLOGY [facility] EM[facility]GENC[facility]PART[facility] RADIOLOGY [facility] Radiology Study observation (narrative) [facility] CT Abdomen and Pelvis W cont rast IVOrdered By: Karly Parker on 01-20-2025 [facility] Work Phone: Hemoglobin (Bld) [Mass/Vol]o n 01-20-2025 Hematocrit (Bld) [Volume fraction] 25.8 % Low 40.0 - 52.0 % [facility] Interpretation and review of laboratory results Abnormal [facility] Hematocrit (Bld) [Volume fraction] 25.7 % Low 40.0 - 52.0 % [facility] Interpretation and review of laboratory results Abnormal [facility] Hematocrit (Bld) [Volume fraction] 25.8 % Low 40.0 - 52.0 % [facility] Interpretation and review of laboratory results Abnormal [facility] Laboratory - Chemistry and C hemistry - challengeon 01-20-2025 Magnesium [Mass/Vol] 2.8 mg/dL High 1.6 - 2 .6 mg/dL [facility] Laboratory - Hematology and Cell countson 01-20-2025 Hemoglobin (Bld) [Mass/Vol] 8.3 g/dL Low 13.0 - 18.0 g/dL [facility] Hemoglobin (Bld) [Mass/Vol] 8.2 g/dL Low 13.0 - 18.0 g/dL [facility] Hemoglobin (Bld) [Mass/Vol] 8.2 g/dL Low 13.0 - 18.0 g/dL [facility] Magnesium [Mass/Vol]on 01-20 [facility] No Panel Informationon 01-20 Interpretation and review of laboratory results Abnormal [facility] Phosphate [Moles/Vol]on 12-27 Phosphate [Mass/Vol] 6.1 mg/dL High 2.3 - 4 .7 mg/dL [facility] No Panel Informationon 01-19 P Edgar 69 degrees [facility] DE Interval 148 ms [facility] QRS Edgar 93 degrees [facility] QRSD Interval 113 ms [facility] QT Interval 413 ms [facility] QTC Interval 515 ms [facility] T Wave Edgar 87 degrees [facility] CV EPIPHANY [facility] 4h Troponin HS (Serial 3rd Troponin) 94 ng/L High NINF - 35 ng/L [facility] Interpretation and review of laboratory results Abnormal [facility] 2h Troponin HS (Serial 2nd Troponin) 106 ng/L High NINF - 35 ng/L [facility] Interpretation and review of laboratory results Abnormal [facility] Vital signson 01-19-2025 Heart rate 93 /min bpm [facility] Airwayon 10-12-2024 Rudolph German CRNA 10/12/2024 7:56 AM Airway Date/Time: 10/12/2024 7:38 AM Urgency: scheduled Airway not difficult General Information and Staff Patient location during procedure: Procedural Anesthesiologist: Vincent Wilson MD Resident/VENEER TAPER: Rudolph German CRNA Performed: anesthesiologist Indications and [...] 21 Number of attempts at approach: 1 [facility] Arterial Lineon 10-12-2024 Rudolph German CRNA [...] procedure well with no complications. Staffing Performed: VENEER TAPER Resident/VENEER TAPER: Rudolph German CRNA [facility] Central Venous Lineon 2024 [...] during the procedure: no complications. Staffing Performed: VENEER TAPER Resident/VENEER TAPER: Rudolph German CRNA [facility] No Panel Informationon 10-[address] [facility] [address] Head WO contraston 2024 No acute intracranial hemorrhage or large territorial infarct. Nonspecific small air locules within the scalp adjacent to the right temporal bone and within the right customs compliance specialist space. Pneumatized secretions within the maxillary sinuses may correspond with acute sinusitis in the appropriate clinical setting. Report Dictated on Electronically Signed By: Yvonne Abraham DO Electronically Signed Date/Time: 10/03/2024 2:14 PM EST [facility] Patient Name: JUN SNYDER [...] right temporal bone and within the right customs compliance specialist space. [facility] Yvonne Abraham DO - 10/03/2024 Patient [...] right temporal bone and within the right customs compliance specialist space. IMPRESSION: No acute intracranial hemorrhage or large territorial infarct. Nonspecific small air locules within the scalp adjacent to the right temporal bone and within the right customs compliance specialist space. Pneumatized secretions within the maxillary sinuses may correspond with acute sinusitis in the appropriate clinical setting. Report Dictated on Electronically Signed By: Yvonne Abraham DO Electronically Signed Date/Time: 10/03/2024 2:14 PM [facility] Radiology Study observation (narrative) [facility] CT Head WO contrastOrdered B y: Yvonne Abraham on 10-03-2024 [facility] [employer] Work Phone: XR Chest Single viewon 10-03 No focal consolidation or pulmonary edema. Report Dictated on Electronically Signed By: Bob Ken MD Electronically Signed Date/Time: 10/03/2024 12:22 PM [facility] [employer] Patient Name: JUN SNYDER : 1965 [...] of the thoracic spine is noted. [facility] RADIOLOGY SYSTEM Bob Ken MD - 10/03/2024 [...] Electronically Signed Date/Time: 10/03/2024 12:22 PM EST [employer] [facility] Study observation (narrative) [facility] XR Chest Single viewOrdered By: Bob Ken on 10-03-2024 [employer] Work Phone: ECG 12 leadon 08-28-2024 Sinus Rhythm -Incomplete right bundle branch block. -Left atrial enlargement. Voltage criteria for LVH (S(V1)+R(V6) exceeds 3.50 mV). -ST depression -Seen with left ventricular hypertrophy (strain) -consider ischemia. [facility] [place] CNPNon 04-12-2024 CNPN Telephone (TXCTGL) JUN SNYDER ([id number]) 1965 Date Time Provider Department 04/12/24 KIDNEY [...] Status:Closed by LANIE LUIS on 04/12/24 Normal [facility] ECG 12 leadon 11-12-2023 Sinus Rhythm -Left atrial enlargement. IRBBB LVH with repolarization ABNORMAL [facility] ECG 12 leadOrdered By: Michaela Coombs on 11-12-2023 [facility] [employer] Work Phone: Basic metabolic 1998 panelon 08-17-2023 Anion gap [Moles/Vol] 15 mmol/L High 3 - 13 mmol/L [facility] Calcium [Mass/Vol] 8.7 mg/dL 8.4 - 10. 4 mg/dL [facility] Chloride [Moles/Vol] 94 mmol/L Low 98 - 10 7 mmol/L [facility] CO2 [Moles/Vol] 26 mmol/L 22 - 30 mmol/L [facility] Creatinine [Mass/Vol] 6.78 mg/dL High 0.66 - 1.25 mg/dL [facility] GFR/1.73 sq M.predicted MDRD (S/P/Bld) [Vol rate/Area] 8.8 mL/min/{1.73_m2} Low - PINF [facility] Comment on above: Calculation based on the Chronic Kidney Disease Epidemiology Collaboration (CKD-EPI) equation refit without adjustment for race Glucose [Mass/Vol] 102 mg/dL High 70 - 100 mg/dL [facility] Interpretation and review of laboratory results Abnormal [facility] Potassium [Moles/Vol] 5.0 mmol/L 3.5 - 5.1 mmol/L [facility] Sodium [Moles/Vol] 134 mmol/L Low 135 - 145 mmol/L [facility] Urea nitrogen [Mass/Vol] 46 mg/dL High 9 - 20 mg/d L [facility] Laboratory - Chemistry and C hemistry - challengeon 08-17-2023 Magnesium [Mass/Vol] 2.1 mg/dL 1.6 - 2 .3 mg/dL [facility] [employer] TSH Qn 0.981 m[IU]/L [facility] [employer] TSH Qn 1.190 m[IU]/L [facility] Troponin I.cardiac [Mass/Vol] 0.094 ng/mL High NINF - 0.034 ng/mL [facility] [employer] Magnesium [Mass/Vol]on 08-17 Interpretation and review of laboratory results Normal [facility] [employer] [facility] [employer] No Panel InformationOrdered By: Ruy Milton on 08-17-2023 P Edgar degrees [employer] Work Phone: DE Interval ms [employer] Work Phone: QRS Edgar 61 degrees [employer] Work Phone: QRSD Interval 114 ms [facility] Work Phone: QT Interval 364 ms [employer] Work Phone: QTC Interval 491 ms [employer] Work Phone: T Wave Edgar -20 degrees [employer] Work Phone: [employer] Work Phone: No Panel Informationon 08-17 ATRIAL [...] On 08-17-2023 6:57:31 EST by Ruy Milton [facility] [employer] TSH Qnon 08-17-2023 Interpretation and review of laboratory results Normal [facility] [employer] [facility] [employer] Interpretation and review of laboratory results Normal [facility] [employer] Troponin I.cardiac [Mass/Vol ]on 08-17-2023 Interpretation and review of laboratory results Abnormal [facility] Patients with high levels of Biotin oral intake (ie >5 mg/day) may have falsely decreased Troponin levels. [facility] US Heart TransthoracicOrdere d By: Jr Shah on 08-17-2023 Ao Root Index 1.58 cm/m2 [facility] Work Phone: [phone] Aortic Root 3.3 cm [facility] Work Phone: Ascending Aorta 3.3 cm [facility] Work Phone: Ascending Aorta Index 1.58 cm/m2 [facility] [employer] Work Phone: AV Area by Peak Velocity 1.1 cm2 [facility] Work Phone: AV Area by VTI 1.1 cm2 [facility] Work Phone: [phone] AV AT 97.05 ms [facility] Work Phone: [phone] AV Mean Gradient [facility] Work Phone: AV Mean Velocity 2.7 m/s [facility] Work Phone: AV Peak Gradient 59 mmHg [facility] Work Phone: AV Peak Velocity 3.8 m/s [facility] Work Phone: AV Velocity Ratio 0.26 [facility] Work Phone: [phone] AV VTI 84.0 cm [facility] Work Phone: MALU/BSA Peak Velocity 0.5 cm2/m2 [facility] [employer] Work Phone: MALU/BSA VTI 0.5 cm2/m2 [facility] [employer] Work Phone: E/E' Lateral 11.44 [facility] Work Phone: E/E' Ratio (Averaged) 13.08 [facility] Work Phone: E/E' Septal 14.71 [facility] [employer] Work Phone: EF BP 62 % 55 - 100 % [facility] [employer] Work Phone: Est. RA Pressure 0 mmHg [facility] Work Phone: Fractional Shortening 2D 30 % 28 - 44 % [facility] Work Phone: Interpretation and review of laboratory results Abnormal [facility] Work Phone: IVC Diameter 1.1 cm [facility] [employer] Work Phone: IVSd 1.1 cm Abnormal 0.6 - 1.0 cm [facility] Work Phone: LA Diameter 4.0 cm [facility] [employer] Work Phone: LA Size Index 1.91 cm/m2 [facility] Work Phone: LA Volume 2C 66 mL Abnormal 18 - 58 mL [facility] [employer] Work Phone: LA Volume 4C 71 mL Abnormal 18 - 58 mL [facility] [employer] Work Phone: LA Volume A/L 75 mL [facility] Work Phone: LA Volume BP 69 mL Abnormal 18 - 58 mL [facility] [employer] Work Phone: LA Volume Index 2C 32 mL/m2 16 - 34 mL/m2 [facility] [employer] Work Phone: LA Volume Index 4C 34 mL/m2 16 - 34 mL/m2 [facility] Work Phone: LA Volume Index A/L 36 mL/m2 16 - 34 mL/m2 [facility] [employer] Work Phone: LA Volume Index BP 33 ml/m2 16 - 34 ml/m2 [facility] Work Phone: LA/AO Root Ratio 1.21 [facility] Work Phone: LV E' Lateral Velocity 9 cm/s [facility] Work Phone: LV E' Septal Velocity 7 cm/s [facility] [employer] Work Phone: LV EDV A2C 104 mL [facility] [employer] Work Phone: LV EDV A4C 89 mL [facility] Work Phone: LV EDV BP 97 mL 67 - 155 mL [facility] Work Phone: LV EDV Index A2C 50 mL/m2 [facility] Work Phone: LV EDV Index A4C 43 mL/m2 [facility] Work Phone: LV EDV Index BP 46 mL/m2 [facility] Work Phone: LV Ejection Fraction A2C 61 % [facility] Work Phone: LV Ejection Fraction A4C 64 % [facility] Work Phone: LV ESV A2C 41 mL [facility] Work Phone: LV ESV A4C 32 mL [facility] Work Phone: LV ESV BP 37 mL 22 - 58 mL [facility] Work Phone: LV ESV Index A2C 20 mL/m2 [facility] Work Phone: LV ESV Index A4C 15 mL/m2 [facility] Work Phone: LV ESV Index BP 18 mL/m2 [facility] Work Phone: LV Mass 2D 173.6 g 88 - 224 g [facility] Work Phone: LV Mass 2D Index 83.1 g/m2 49 - 115 g/m2 [facility] Work Phone: LV RWT Ratio 0.56 [facility] Work Phone: LVIDd 4.3 cm 4.2 - 5.9 cm [facility] Work Phone: LVIDd Index 2.06 cm/m2 [facility] Work Phone: LVIDs 3.0 cm [facility] Work Phone: LVIDs Index 1.44 cm/m2 [facility] Work Phone: LVOT Area 4.2 cm2 [facility] Work Phone: LVOT Cardiac Output 7.6 liter/minute [facility] Work Phone: LVOT Diameter 2.3 cm [facility] Work Phone: LVOT Mean Gradient 2 mmHg [facility] Work Phone: LVOT Peak Gradient 4 mmHg [facility] Work Phone: LVOT Peak Velocity 1.0 m/s [facility] Work Phone: LVOT Stroke Volume Index 46.5 mL/m2 [facility] Work Phone: LVOT SV 97.2 ml [facility] Work Phone: LVOT VTI 23.4 cm [facility] Work Phone: LVOT:AV VTI Index 0.28 [facility] Work Phone: LVPWd 1.2 cm Abnormal 0.6 - 1.0 cm [facility] Work Phone: MV A Velocity 0.79 m/s [facility] Work Phone: MV Area by PHT 1.9 cm2 [facility] Work Phone: MV E Velocity 1.03 m/s [facility] Work Phone: MV E Wave Deceleration Time 278.6 ms [facility] Work Phone: MV E/A 1.30 [facility] Work Phone: MV Mean Gradient 3 mmHg [facility] Work Phone: MV Peak Gradient 6 mmHg [facility] Work Phone: MV PHT 113.0 ms [facility] Work Phone: RA Area 4C 79.9 mL [facility] Work Phone: RA Area 4C 77.7 mL [facility] Work Phone: RV Basal Dimension 4.6 cm [facility] Work Phone: RV Mid Dimension 3.3 cm [facility] Work Phone: RVSP 30 mmHg [facility] Work Phone: Sinotubular Junction 3.0 cm [facility] Work Phone: TR Max Velocity 2.72 m/s [employer] [facility] Work Phone: TR Peak Gradient 30 mmHg [employer] Work Phone: [facility] Work Phone: [facility]: Trileaflet. Moderately thickened cusps. Moderately [...] on 08-17-2023 Heart rate 109 /min bpm [facility] [employer] Work Phone: Basic metabolic 1998 panelon 08-16-2023 Anion gap [Moles/Vol] 15 mmol/L High 3 - 13 mmol/L [facility] [employer] Calcium [Mass/Vol] 9.1 mg/dL 8.4 - 10. 4 mg/dL [facility] [employer] Chloride [Moles/Vol] 93 mmol/L Low 98 - 10 7 mmol/L [facility] [employer] CO2 [Moles/Vol] 25 mmol/L 22 - 30 mmol/L [facility] [employer] Creatinine [Mass/Vol] 6.01 mg/dL High 0.66 - 1.25 mg/dL [facility] GFR/1.73 sq M.predicted MDRD (S/P/Bld) [Vol rate/Area] 10.2 mL/min/{1.73_m2} Low - PINF [facility] Comment on above: Calculation based on the Chronic Kidney Disease Epidemiology Collaboration (CKD-EPI) equation refit without adjustment for race Glucose [Mass/Vol] 110 mg/dL High 70 - 100 mg/dL [facility] Interpretation and review of laboratory results Abnormal [facility] [employer] Potassium [Moles/Vol] 4.5 mmol/L 3.5 - 5.1 mmol/L [facility] Sodium [Moles/Vol] 133 mmol/L Low 135 - 145 mmol/L [facility] [employer] Urea nitrogen [Mass/Vol] 40 mg/dL High 9 - 20 mg/d L [facility] CBC W Auto Differential pane l (Bld)Ordered By: Aric Montejo on 08-16-2023 Basophils (Bld) [#/Vol] 0.1 10*3/uL 0.0 - 0.2 10*3/uL [facility] Basophils/100 WBC (Bld) 1.3 % 0.0 - 2.0 % [facility] Eosinophils (Bld) [#/Vol] 0.5 10*3/uL 0.0 - 0.5 10*3/uL [facility] Eosinophils/100 WBC (Bld) 5.1 % 1.0 - 6.0 % [facility] Erythrocyte distribution width (RBC) [Ratio] 14.7 % High 11.5 - 14.5 % [facility] Hematocrit (Bld) [Volume fraction] 41.6 % 40.0 - 52.0 % [facility] Hemoglobin (Bld) [Mass/Vol] 14.5 g/dL 13.0 - 18.0 g/dL [facility] Interpretation and review of laboratory results Abnormal [facility] Lymphocytes (Bld) [#/Vol] 1.3 10*3/uL 1.0 - 4.3 10*3/uL [facility] Lymphocytes/100 WBC (Bld) 14.2 % Low 20.0 - 40.0 % [facility] MCH (RBC) [Entitic mass] 31.5 pg 26. 0 - 34.0 pg [facility] MCHC (RBC) [Mass/Vol] 34.8 % 32.0 - 36.0 % [facility] MCV (RBC) [Entitic vol] 90.5 fL 80.0 - 98.0 fL [facility] Monocytes (Bld) [#/Vol] 1.3 10*3/uL High 0.0 - 0.8 10*3/uL [facility] Monocytes/100 WBC (Bld) 13.5 % High 2.0 - 10.0 % [facility] Neutrophils (Bld) [#/Vol] 6.2 10*3/uL 1.8 - 7.0 10*3/uL [facility] Neutrophils/100 WBC (Bld) 65.9 % 40.0 - 80.0 % [facility] Nucleated RBC/100 WBC (Bld) [Ratio] 0.1 % [facility] Platelet mean volume (Bld) [Entitic vol] 7.3 fL Low 7.4 - 12.4 fL [facility] Platelets (Bld) [#/Vol] 254 10*3/uL 140 - 440 10*3/uL [facility] RBC (Bld) [#/Vol] 4.60 10*6/uL 4.40 - 5.9 0 10*6/uL [facility] WBC (Bld) [#/Vol] 9.5 10*3/uL 3.6 - 10.7 10*3/uL [facility] Laboratory - Chemistry and C hemistry - challengeon 08-16-2023 Troponin I.cardiac [Mass/Vol] 0.062 ng/mL High NINF - 0.034 ng/mL [facility] Troponin I.cardiac [Mass/Vol] 0.037 ng/mL [facility]/mL [facility] Troponin I.cardiac [Mass/Vol ]on 08-16-2023 Interpretation and review of laboratory results Abnormal [facility] Patients with high levels of Biotin oral intake (ie >5 mg/day) may have falsely decreased Troponin levels. [facility] Interpretation and review of laboratory results Abnormal [facility] Patients with high levels of Biotin oral intake (ie >5 mg/day) may have falsely decreased Troponin levels. [facility] XR Chest Single viewon 08-16 1. Cardiomegaly. 2. No other acute findings. Report Dictated on Electronically Signed By: Justo Milan MD Electronically Signed Date/Time: 08/16/2023 6:42 PM EST [facility] Patient Name: JUN SNYDER : 1965 Exam Date/Time: 08/16/2023 18:39 Procedure: XR CHEST 1 VIEW Ordering Provider: GRANADOS SHAYA Reason For Exam: CHEST PAIN CHEST PORTABLE CLINICAL INDICATION: CHEST PAIN TECHNIQUE: Portable chest x-ray(s). COMPARISON: September,. FINDINGS: Mild cardiomegaly, stable. Lungs are grossly clear. No significant vascular congestion. No apparent pneumothorax. Bony thorax grossly unremarkable. [facility] Justo Milan MD - 08/16/2023 Patient [...] Electronically Signed Date/Time: 08/16/2023 6:42 PM EST [facility] [employer] Radiology Study observation (narrative) [employer] [facility] XR Chest Single viewOrdered By: Justo Milan on 08-16-2023 [employer] Work Phone: [employer] BL[employer] 12-17-2022 Potassium [Moles/Vol] 7.6 mmol/L Critically high 3.7-5.1 [facility] [facility] Comment on above: Order Comment: Dominick richards Type: BLOOD SPECIMEN Ordering Facility: [facility] Address: , , Performed By: #### K 1 #### [place] [employer] [facility] CLIA [id number] [address] [place] POTASSIUM BLDon 08-19-2022 Potassium [Moles/Vol] 7.0 mmol/L Critically high 3.7-5.1 [facility] Comment on above: Order Comment: Dominick richards Type: BLOOD SPECIMEN Ordering Facility[facility] Address: , , Performed By: #### K 1 #### [place] [employer] LAB[facility] CLIA [id number] [address] [place] POTASSIUM BLDon 06-16-2022 Potassium [Moles/Vol] 6.3 mmol/L Critically high 3.7-5.1 [facility] Comment on above: Order Comment: Dominick richards Type: BLOOD SPECIMEN Ordering Facility: [facility] Address: , , Performed By: #### K 1 #### [employer] [facility] CLIA [id number] 1 [place] [address] [place] Hgb Bld-mCncon 08-16-2022 Hemoglobin (Bld) [Mass/Vol] 8.4 g/dL Low 13.0-17.0 [facility] Comment on above: Order Comment: Speci men Type: BLOOD SPECIMEN Ordering Facility: [facility] Address: , , Performed By: #### 7 18-7 #### [facility] CLIA [id number] [address] OF [facility] XA Special Angiography Proce wilder 09-15-2021 XA Special Angiography Procedure Patient Name: JUN SNYDER Special Procedures ACCESSION EXAM DATE/TIME PROCEDURE ORDERING PROVIDER [id number] 09/15/2021 11:10 EST XA Special Angiography MD JORGE, CINDY Procedure BISI Reason For Exam (XA [...] and the needle was removed. A 3 [place] dilator was advanced over the wire and [...] Transcribed Date and Time: 09/15/2021 12:16 Normal [facility] IR DIALYSIS INJ W/ANGIOPLAST Yon [...] This was initially converted to a 6 [place] sheath and later converted to a 7 [place] sheath. Reflux fistulogram for done in several [...] levels with a 6 x 40 mm [place] balloon. This gave minimal improvement. We then exchanged the 6 mm balloon for an 8 x 40 mm [place] balloon. This gave more moderate improvement. At that point we changed the 6 [place] sheath to a 7 [place] sheath and placed a 9 x 40 [...] site of puncture trauma. With the 7 [place] sheath removed pressure was held on the [...] dilation of stenotic lesion as noted above. Transactional Attorney: RC Transcribe Date/Time: Nov 22 2020 2:07P Dictated by : VINCENT DE LA ROSA MD This examination was interpreted and the report reviewed and electronically signed by: VINCENT DE LA ROSA MD on Nov 22 2020 2:13PM EST Normal [facility] XA SPECIAL ANGIOGRAPHY PROCE DUREon 10-17-2020 Patient Name: GLENN SNYDER Special Procedures ACCESSION EXAM DATE/TIME PROCEDURE ORDERING PROVIDER [id number] 10/17/2020 08:27 EST XA Special Angiography MD [facility] Procedure BISI Reason For Exam (XA [...] KEVIN Transcribed Date and Time: 10/17/2020 1:05 [facility] [place], [place] [facility], [facility] Incoming Radiology Results From [facility] - 10/17/2020 1:05 PM EST Patient Name: GLENN SNYDER Special Procedures ACCESSION EXAM DATE/TIME PROCEDURE ORDERING PROVIDER [id number] 10/17/2020 08:27 EST [place] Special Angiography MD JORGE, CINDY MATHEWS Reason For Exam (XA Special [...] KEVIN Transcribed Date and Time: 10/17/2020 1:05 [place], [place] XA Special Angiography Proce [facility] 10-17-2020 XA Special Angiography Procedure Patient Name: GLENN SNYDER Special Procedures ACCESSION EXAM DATE/TIME PROCEDURE ORDERING PROVIDER [id number] 10/17/2020 08:27 EST XA Special Angiography MD JORGE, CINDY MATHEWS Reason For Exam (XA Special [...] Transcribed Date and Time: 10/17/2020 1:05 Normal [facility] Basic Metabolic Panelon 04-27 Anion gap [Moles/Vol] 17 mmol/L Normal 9-18 [facility] Comment on above: Performed By: #### B MP #### [facility] [address] [place], [place] [address] Calcium [Mass/Vol] 9.1 mg/dL Normal 8.5-10.2 [facility] Comment on above: Performed By: #### B MP #### [facility] [address] [place], [place] [address] Chloride [Moles/Vol] 100 mmol/L Normal 97-105 [facility] Comment on above: Performed By: #### B MP #### [facility] [address] [place], [place] [address] CO2 Blood 18 mmol/L Low 22-30 [facility] Comment on above: Performed By: #### B MP #### [facility] [address] [place], [place] [address] Creatinine [Mass/Vol] 13.39 mg/dL High 0.73-1.22 [facility] Comment on above: Performed By: #### B MP #### [facility] [address] [place], [place] [address] Glucose [Mass/Vol] 83 mg/dL Normal 74-99 [facility] Comment on above: Result Comment: The [place] Diabetes Association (ADA) provides guidance for cutoff [...] Standards of Medical Care in Diabetes 2016; [place] [employer] Association. Diabetes Care. 2016;39(Suppl 1). Performed By: #### B MP #### [facility] 1 [place] [address] Potassium [Moles/Vol] 4.8 mmol/L Normal 3.7-5.1 [facility] Comment on above: Performed By: #### B MP #### [place] [address] Sodium [Moles/Vol] 135 mmol/L Low 136-144 [facility] Comment on above: Performed By: #### B MP #### [place] [address] Urea nitrogen [Mass/Vol] 61 mg/dL High 9-24 [facility] Comment on above: Performed By: #### B MP #### [place] [address] Hemogramon 05-10-2020 Erythrocyte distribution width (RBC) [Ratio] 12.7 % Normal 11.6-14.4 [facility] Comment on above: Performed By: #### C BC1 #### [place] [address] Hematocrit (Bld) [Volume fraction] 28.4 % Low 40.1-51.0 [facility] Comment on above: Performed By: #### C BC1 #### [place] [id number] Hemoglobin (Bld) [Mass/Vol] 9.2 g/dL Low 13.7-17.5 [facility] Comment on above: Performed By: #### C BC1 #### [place] [id number] MCH (RBC) [Entitic mass] 30.6 pg Normal 25.7-32.2 [facility] Comment on above: Performed By: #### C BC1 #### [facility] [address] [place], [place] [address] MCHC (RBC) [Mass/Vol] 32.4 % Normal 32.3-36.5 [facility] Comment on above: Performed By: #### C BC1 #### [facility] [address] [place] [address] MCV (RBC) [Entitic vol] 94.4 fL Normal 83.2-95.6 [facility] Comment on above: Performed By: #### C BC1 #### [facility] [address] [place] [address] Platelet mean volume (Bld) [Entitic vol] 10.1 fL Normal 8.7-12.0 [facility] Comment on above: Performed By: #### C BC1 #### [facility] [address] [place] [address] Platelets (Bld) [#/Vol] 278 thou/cmm Normal 141-365 [facility] Comment on above: Performed By: #### C BC1 #### [facility] [address] [place] [address] RBC (Bld) [#/Vol] 3.01 mil/cmm Low 4.63-6.08 [facility] Comment on above: Performed By: #### C BC1 #### [facility] [address] [place] [address] RDW [place] 43.8 fl Normal 36.1-45.8 [facility] Comment on above: Performed By: #### C BC1 #### [facility] [address] [place], [place] [address] WBC (Bld) [#/Vol] 8.58 thou/cmm Normal 4.23-9.07 [facility] Comment on above: Performed By: #### C BC1 #### [facility] [address] [place], [place] [address] MDRD GFRon 05-10-2020 GFR/1.73 sq M predicted among non-blacks MDRD (S/P/Bld) [Vol rate/Area] 3.89 mL/min/{1.73_m2} Normal >60mL/min/1.7 3m2 [facility] Comment on above: Result Comment: If t he patient is , multiply the result by 1.210. Performed By: #### G FR #### [place] [address] Protimeon 05-10-2020 INR Coag (PPP) [Relative time] 0.98 {INR} Normal 0.90-1.30 [facility] Comment on above: Result Comment: [place]ita min K Antagonist (VKA) Therapeutic Range: INR 2 to 3 (Target INR of 2.5) Note: For patients treated with VKA drugs, such as warfarin, the [place] [employer] 2012 Guideline recommends [...] Chest 2012; 141:7S-47S Randall RA, et al. JAC 2017; 70: 252-289 Performed By: #### P T #### [place] [address] PT Coag (PPP) [Time] 10.6 s Normal 9.7-13.0 [facility] Comment on above: Performed By: #### P T #### [facility] [address] [place] [address] Rapid, COVID 19on 03-20-2020 Rapid, COVID 19 Negative Normal Negative [facility] Comment on above: Result Comment: This test has been authorized by the FDA under an Emergency Use Authorization (EUA). Performed By: #### R COVD #### [facility] [address] [place], [place] [address] Basic Metabolic Panelon 06- Anion gap [Moles/Vol] 14 mmol/L Normal 9-18 [facility] Comment on above: Performed By: #### B MP #### [facility] [address] [place], [place] [address] Calcium [Mass/Vol] 10.0 mg/dL Normal 8.5-10.2 [facility] Comment on above: Performed By: #### B MP #### [facility] [address] [place], [place] [address] Chloride [Moles/Vol] 95 mmol/L Low 97-105 [facility] Comment on above: Performed By: #### B MP #### [facility] [address] [place], [place] [address] CO2 Blood 26 mmol/L Normal 22-30 [facility] Comment on above: Performed By: #### B MP #### [facility] [address] [place], [place] [address] Creatinine [Mass/Vol] 9.29 mg/dL High 0.73-1.22 [facility] Comment on above: Performed By: #### B MP #### [facility] [address] [place], [place] [address] Glucose [Mass/Vol] 84 mg/dL Normal 74-99 [facility] Comment on above: Result Comment: The [place] Diabetes Association (ADA) provides guidance for cutoff [...] Standards of Medical Care in Diabetes 2016; [place] Diabetes [employer]. Diabetes Care. 2016;39(Suppl 1). Performed By: #### B MP #### [facility] [address] [place], [place] [address] Potassium [Moles/Vol] 3.7 mmol/L Normal 3.7-5.1 [facility] Comment on above: Performed By: #### B MP #### [facility] [address] [place], [place] [address] Sodium [Moles/Vol] 135 mmol/L Low 136-144 [facility] Comment on above: Performed By: #### B MP #### [facility] [address] [place], [place] [address] Urea nitrogen [Mass/Vol] 32 mg/dL High 9-24 [facility] Comment on above: Performed By: #### B MP #### [facility] 1 [place] [id number] Hematologyon 03-13-2020 INR Coag (PPP) [Relative time] 0.96 {INR} 0.90 - 1.30 [facility] PT Coag (PPP) [Time] 10.4 s 9.7 - 1 3.0 sec [facility] Hematocrit (Bld) [Volume fraction] 30.6 % Low 40.1 - 51.0 % [facility] Hemoglobin (Bld) [Mass/Vol] 10.8 g/dL Low 13.7 - 17.5 g/dL [facility] MCH (RBC) [Entitic mass] 31.0 pg 25. 7 - 32.2 pg [facility] MCV (RBC) [Entitic vol] 87.9 fL 83.2 - 95.6 fl [facility] Platelets (Bld) [#/Vol] 269 thou/cmm 141 - 365 thou/cmm [facility] RBC (Bld) [#/Vol] 3.48 mil/cmm Low 4.63 - 6.0 8 mil/cmm [facility] WBC (Bld) [#/Vol] 10.79 thou/cmm High 4.23 - 9 .07 thou/cmm [facility] Hemogramon 03-13-2020 Erythrocyte distribution width (RBC) [Ratio] 13.2 % Normal 11.6-14.4 [facility] Comment on above: Performed By: #### C BC1 #### [facility] [address] [place], [place] [address] Hematocrit (Bld) [Volume fraction] 30.6 % Low 40.1-51.0 [facility] Comment on above: Performed By: #### C BC1 #### [facility] [address] [place] [address] Hemoglobin (Bld) [Mass/Vol] 10.8 g/dL Low 13.7-17.5 [facility] Comment on above: Performed By: #### C BC1 #### [facility] [address] [place] [address] MCH (RBC) [Entitic mass] 31.0 pg Normal 25.7-32.2 [facility] Comment on above: Performed By: #### C BC1 #### [facility] [address] [place] [address] MCHC (RBC) [Mass/Vol] 35.3 % Normal 32.3-36.5 [facility] Comment on above: Performed By: #### C BC1 #### [facility] [address] [place] [address] MCV (RBC) [Entitic vol] 87.9 fL Normal 83.2-95.6 [facility] Comment on above: Performed By: #### C BC1 #### [facility] [address] [place] [address] Platelet mean volume (Bld) [Entitic vol] 10.1 fL Normal 8.7-12.0 [facility] Comment on above: Performed By: #### C BC1 #### [facility] [address] [place] [address] Platelets (Bld) [#/Vol] 269 thou/cmm Normal 141-365 [facility] Comment on above: Performed By: #### C BC1 #### [facility] [address] [place] [address] RBC (Bld) [#/Vol] 3.48 mil/cmm Low 4.63-6.08 [facility] Comment on above: Performed By: #### C BC1 #### [facility] [address] [place] [address] RDW [place] 42.3 fl Normal 36.1-45.8 [facility] Comment on above: Performed By: #### C BC1 #### [facility] [address] [place], [place] [address] WBC (Bld) [#/Vol] 10.79 thou/cmm High 4.23-9.07 [facility] Comment on above: Performed By: #### C BC1 #### [facility] [address] [place], [place] [address] MDRD GFRon 03-13-2020 GFR/1.73 sq M predicted among non-blacks MDRD (S/P/Bld) [Vol rate/Area] 5.94 mL/min/{1.73_m2} Normal >60mL/min/1.7 3m2 [facility] Comment on above: Result Comment: If t he patient is , multiply the result by 1.210. Performed By: #### G FR #### [facility] [address] [place], [place] [address] Metabolic Panelon 03-13-2020 Anion gap [Moles/Vol] 14 mmol/L 9 - 18 mmol/L [facility] Calcium [Mass/Vol] 10.0 mg/dL 8.5 - 10. 2 mg/dL [facility] Chloride [Moles/Vol] 95 mmol/L Low 97 - 10 5 mmol/L [facility] CO2 [Moles/Vol] 26 mmol/L 22 - 30 mmol/L [facility] Creatinine [Mass/Vol] 9.29 mg/dL High 0.73 - 1.22 mg/dL [facility] Glucose [Mass/Vol] 84 mg/dL 74 - 99 mg/dL [facility] Potassium [Moles/Vol] 3.7 mmol/L 3.7 - 5.1 mmol/L [facility] Sodium [Moles/Vol] 135 mmol/L Low 136 - 144 mmol/L [facility] Urea nitrogen [Mass/Vol] 32 mg/dL High 9 - 24 mg/d L [facility] Otheron 03-13-2020 GFR/1.73 sq M.predicted MDRD (S/P/Bld) [Vol rate/Area] 5.94 mL/min/{1.73_m2} >60mL/min/1.7 3m2 [facility] Erythrocyte distribution width (RBC) [Entitic vol] 42.3 fL 36.1 - 45.8 fl [facility] Erythrocyte distribution width (RBC) [Ratio] 13.2 % 11.6 - 14.4 % [facility] MCHC (RBC) [Mass/Vol] 35.3 % 32.3 - 36.5 % [facility] Platelet mean volume (Bld) [Entitic vol] 10.1 fL 8.7 - 12.0 fl [facility] Protimeon 03-13-2020 INR Coag (PPP) [Relative time] 0.96 {INR} Normal 0.90-1.30 [facility] Comment on above: Result Comment: [place] min K Antagonist (VKA) Therapeutic Range: INR 2 to 3 (Target INR of 2.5) Note: For patients treated with VKA drugs, such as warfarin, the [place] [employer] 2012 Guideline recommends [...] Chest 2012; 141:7S-47S Randall RA et al. [facility] 2017; 70: 252-289 Performed By: #### P T #### [place] [address] PT Coag (PPP) [Time] 10.4 s Normal 9.7-13.0 [facility] Comment on above: Performed By: #### P T #### [place] [address] US VEIN MAPPING UPPER BILon 02-13-2020 US VEIN MAPPING UPPER HO * * *Final Report* * * DATE OF EXAM: Feb 13 2020 2:22PM [facility] 1085 - VEIN MAPPING UPPER HO [...] unobstructed. There is no deep venous thrombosis. Transactional Attorney: RC Transcribe Date/Time: Feb 13 2020 4:27P Dictated by : ANALISA GRANADOS MD This examination was interpreted and the report reviewed and electronically signed by: ANALISA GRANADOS MD on Feb 13 2020 4:30PM EST Normal [facility] Basic Metabolic PanelOrdered By: Darell Sanches on 10-27-2019 Anion gap [Moles/Vol] 18 mmol/L [facility] Work Phone: [phone] Calcium [Mass/Vol] 9.2 mg/dL 8.4 - 10. 4 mg/dL [facility] Work Phone: [phone] Chloride [Moles/Vol] 93 mmol/L Low 98 - 10 7 mmol/L [facility] Work Phone: CO2 [Moles/Vol] 24 mmol/L 22 - 30 mmol/L [facility] Work Phone: [phone] Creatinine [Mass/Vol] 9.99 mg/dL High 0.52 - 1.25 mg/dL [facility] Work Phone: [phone] NonAfrican [place] 5.5 mL/min >60 [facility] Work Phone: [phone] Comment on above: Source- MDRD equatio n with creatinine calibration to IDMS(NKDEP) eGFR not recommended for drug dose adjustment GFR/1.73 sq M.predicted among blacks MDRD (S/P/Bld) [Vol rate/Area] 6.6 mL/min/{1.73_m2} >60 [facility] Work Phone: [phone] Glucose [Mass/Vol] 103 mg/dL High 70 - 100 mg/dL [facility] Work Phone: [phone] Potassium [Moles/Vol] 4.5 mmol/L 3.5 - 5.1 mmol/L [facility] Work Phone: [phone] Sodium [Moles/Vol] 135 mmol/L 135 - 145 mmol/L [facility] Work Phone: [phone] Urea nitrogen [Mass/Vol] 49 mg/dL High 7 - 20 mg/d L [facility] Work Phone: [phone] CBC Auto DifferentialOrdered By: Darell Sanches on 10-27-2019 Absolute Baso # 0.1 10*3/uL 0 - 0.2 10*3/uL [facility] Work Phone: [phone] Absolute Neut # 6.6 10*3/uL 1.8 - 7 10*3/uL [facility] Work Phone: Basophils/100 WBC (Bld) 0.7 % 0 - 2 % [facility] [employer] Work Phone: [phone] Eosinophils (Bld) [#/Vol] 0.5 10*3/uL 0 - 0.5 10*3/uL [employer] Work Phone: [phone] Eosinophils/100 WBC (Bld) 4.9 % 1 - 6 % [employer] Work Phone: [phone] Erythrocyte distribution width (RBC) [Ratio] 14.0 % 11.5 - 14.5 % [employer] Work Phone: [phone] Granulocytes/100 WBC (Bld) 62.2 % 40 - 80 % [employer] Work Phone: [phone] Hematocrit (Bld) [Volume fraction] 28.3 % Low 40 - 52 % [employer] Work Phone: [phone] Hemoglobin (Bld) [Mass/Vol] 9.5 g/dL Low 13 - 18 g/dL [employer] Work Phone: [phone] Lymphocytes (Bld) [#/Vol] 2.0 10*3/uL 1 - 4.3 10*3/uL [employer] Work Phone: [phone] Lymphocytes/100 WBC (Bld) 18.8 % Low 20 - 40 % [employer] Work Phone: [phone] MCH (RBC) [Entitic mass] 29.1 pg 26 - 34 pg [employer] Work Phone: [phone] MCHC 33.6 % 32 - 36 % [employer] Work Phone: [phone] MCV (RBC) [Entitic vol] 86.7 fL 80 - 98 fL [facility] [employer] Work Phone: [phone] Monocytes (Bld) [#/Vol] 1.4 10*3/uL High 0 - 0.8 10*3/uL [employer] Work Phone: [phone] Monocytes/100 WBC (Bld) 13.4 % High 2 - 10 % [facility] [employer] Work Phone: [phone] Platelet mean volume (Bld) [Entitic vol] 8.2 fL 7.4 - 10.4 fL [employer] Work Phone: Platelets (Bld) [#/Vol] 259 10*3/uL 140 - 440 10*3/uL [facility] Work Phone: 1 RBC (Bld) [#/Vol] 3.27 10*6/uL Low 4.4 - 5.9 10*6/uL [facility] Work Phone: 1 WBC (Bld) [#/Vol] 10.6 10*3/uL 3.6 - 10.7 10*3/uL [facility] Work Phone: [phone] MAGNESIUMOrdered By: Darell Sanches on 10-27-2019 Magnesium [Mass/Vol] 2.6 mg/dL High 1.6 - 2 .3 mg/dL [facility] Work Phone: No Panel InformationOrdered By: Darell Sanches on 10-27-2019 Interpretation and review of laboratory results Abnormal [facility] Work Phone: Test Performed by [employer] [address] Work Phone: PhosphorusOrdered By: Darell Sanches on 10-27-2019 Phosphate [Mass/Vol] 9.9 mg/dL High 2.5 - 4 .5 mg/dL [facility] Work Phone: Basic Metabolic PanelOrdered By: Darell Sanches on 10-26-2019 Anion gap [Moles/Vol] 14 mmol/L [facility] Work Phone: Calcium [Mass/Vol] 9.0 mg/dL 8.4 - 10. 4 mg/dL [facility] Work Phone: [phone] Chloride [Moles/Vol] 94 mmol/L Low 98 - 10 7 mmol/L [facility] Work Phone: CO2 [Moles/Vol] 29 mmol/L 22 - 30 mmol/L [facility] Work Phone: Creatinine [Mass/Vol] 7.06 mg/dL High 0.52 - 1.25 mg/dL [facility] Work Phone: EGFR IF NonAfrican [place] 8.2 mL/min >60 [facility] Work Phone: [phone] Comment on above: Source- MDRD equatio n with creatinine calibration to IDMS(NKDEP) eGFR not recommended for drug dose adjustment GFR/1.73 sq M.predicted among blacks MDRD (S/P/Bld) [Vol rate/Area] 9.9 mL/min/{1.73_m2} >60 [employer] Work Phone: [phone] Glucose [Mass/Vol] 95 mg/dL 70 - 100 mg/dL [facility] Work Phone: Potassium [Moles/Vol] 4.2 mmol/L 3.5 - 5.1 mmol/L [facility] Work Phone: [phone] Sodium [Moles/Vol] 136 mmol/L 135 - 145 mmol/L [employer] Work Phone: [phone] Urea nitrogen [Mass/Vol] 27 mg/dL High 7 - 20 mg/d L [employer] Work Phone: [phone] CBC Auto DifferentialOrdered By: Darell Sanches on 10-26-2019 Absolute Baso # 0.1 10*3/uL 0 - 0.2 10*3/uL [employer] Work Phone: [phone] Absolute Neut # 7.1 10*3/uL High 1.8 - 7 10*3/uL [employer] Work Phone: [phone] Basophils/100 WBC (Bld) 0.8 % 0 - 2 % [facility] Work Phone: [phone] Eosinophils (Bld) [#/Vol] 0.5 10*3/uL 0 - 0.5 10*3/uL [employer] Work Phone: [phone] Eosinophils/100 WBC (Bld) 4.7 % 1 - 6 % [facility] Work Phone: [phone] Erythrocyte distribution width (RBC) [Ratio] 13.9 % 11.5 - 14.5 % [employer] Work Phone: [phone] Granulocytes/100 WBC (Bld) 63.9 % 40 - 80 % [employer] Work Phone: [phone] Hematocrit (Bld) [Volume fraction] 29.2 % Low 40 - 52 % [employer] Work Phone: [phone] Hemoglobin (Bld) [Mass/Vol] 9.9 g/dL Low 13 - 18 g/dL [facility] Work Phone: [phone] Interpretation and review of laboratory results Abnormal [facility] Work Phone: Lymphocytes (Bld) [#/Vol] 2.0 10*3/uL 1 - 4.3 10*3/uL [facility] Work Phone: [phone] Lymphocytes/100 WBC (Bld) 17.8 % Low 20 - 40 % [facility] Work Phone: MCH (RBC) [Entitic mass] 29.5 pg 26 - 34 pg [facility] Work Phone: MCHC 33.9 % 32 - 36 % [facility] Work Phone: MCV (RBC) [Entitic vol] 87.0 fL 80 - 98 fL [facility] [employer] Work Phone: Monocytes (Bld) [#/Vol] 1.4 10*3/uL High 0 - 0.8 10*3/uL [facility] Work Phone: Monocytes/100 WBC (Bld) 12.8 % High 2 - 10 % [facility] [employer] Work Phone: Platelet mean volume (Bld) [Entitic vol] 8.0 fL 7.4 - 10.4 fL [facility] Work Phone: Platelets (Bld) [#/Vol] 262 10*3/uL 140 - 440 10*3/uL [facility] Work Phone: RBC (Bld) [#/Vol] 3.36 10*6/uL Low 4.4 - 5.9 10*6/uL [facility] Work Phone: WBC (Bld) [#/Vol] 11.0 10*3/uL High 3.6 - 10.7 10*3/uL [facility] Work Phone: Test Performed by [facility], [address] [place], [place] [address] [facility] Work Phone: Culture Blood #1Ordered By: Brett Encarnacion on 10-26-2019 Blood Culture, Routine [employer] testing is not routinely performed on Gram positive bacilli. If a Listeria infection is highly suspected, contact the Microbiology laboratory [phone] Abnormal [facility] Work Phone: [phone] Blood Culture, Routine Propionibacterium acnes Abnormal [facility] Work Phone: [phone] Blood Culture, Routine Isolated: Contamination likely unless additional blood culture sets are found to be positive with the same organism. [facility] Work Phone: [phone] Interpretation and review of laboratory results Abnormal [facility] Work Phone: [phone] Test Performed by [facility] [facility], [address] [place] [address] Specimen Source Comment:Blood [facility] Work Phone: [phone] MAGNESIUMOrdered By: Darell Sanches on 10-26-2019 Magnesium [Mass/Vol] 2.2 mg/dL 1.6 - 2 .3 mg/dL [facility] Work Phone: [phone] Panel InformationOrdered By: Darell Sanches on 10-26-2019 Interpretation and review of laboratory results Abnormal [facility] Work Phone: [phone] Test Performed by [facility], [address] [place] [address] [facility] Work Phone: [phone] PhosphorusOrdered By: Darell Sanches on 10-26-2019 Phosphate [Mass/Vol] 7.1 mg/dL High 2.5 - 4 .5 mg/dL [facility] Work Phone: US BIOPSY RENAL RIGHT PERCOr dered By: Cindy Patel on 10-26-2019 Patient Name: GLENN SNYDER ---Ultrasound--- Exam Date/Time 10/26/2019 10:57:27 EST Exam US Biopsy Renal Right Ordering Physician MD JORGE, CINDY MATHEWS Accession Number [id number] CPT4 Codes 13781 (), 76574 () Reason For Exam renal failure Report ULTRASOUND GUIDED RIGHT LOWER POLE KIDNEY BIOPSY Reasons for examination: Acute renal failure. After review of prior studies, patient interview and examination, the risks, benefits, and alternatives of the biopsy procedure were discussed, informed consent was obtained. Transportation Aid US scans of the right kidney were [...] Phone: Mike, [facility] Incoming Radiology Results From [facility] - 10/26/2019 12:05 PM EST Patient Name: GLENN SNYDER ---Ultrasound--- Exam Date/Time 10/26/2019 10:57:27 EST Exam US Biopsy Renal Right Ordering Physician MD JORGE, CINDY MATHEWS Accession Number [id number] CPT4 Codes 29176 (), 37817 () Reason For Exam renal failure Report ULTRASOUND GUIDED RIGHT LOWER POLE KIDNEY BIOPSY Reasons for examination: Acute renal failure. After review of prior studies, patient interview and examination, the risks, benefits, and alternatives of the biopsy procedure were discussed, informed consent was obtained. [employer] Aid US scans of the right kidney were [...] Ordering Physician MD PEDRAZA AZIZ Accession Number [id number] Reason For Exam non tunneled to tunneled cath Report FLUOROSCOPIC AND ULTRASOUND-GUIDED TUNNELED DIALYSIS CATHETER PLACEMENT REMOVAL OF RIGHT INTERNAL JUGULAR TEMPORARY HEMODIALYSIS CATHETER CLINICAL HISTORY: Need for 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 designer central venous access Fluoroscopy time: Acute renal [...] RICHARD Transcribed Date and Time: 10/26/2019 3:28 [facility] Work Phone: [facility], [facility] Incoming Radiology Results From [facility] - 10/26/2019 3:29 PM EST Patient Name: GLENN SNYDER ---Special Procedures--- Exam Date/Time 10/26/2019 15:01:32 EST Exam XA Special Angiography Procedure Ordering Physician MD KEILA, JEANA Accession Number [id number] Reason For Exam non tunneled to tunneled cath Report FLUOROSCOPIC AND ULTRASOUND-GUIDED TUNNELED DIALYSIS CATHETER PLACEMENT REMOVAL OF RIGHT INTERNAL JUGULAR TEMPORARY HEMODIALYSIS CATHETER CLINICAL HISTORY: Need for 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 designer central venous access Fluoroscopy time: Acute renal [...] - 10. 4 mg/dL [facility] Work Phone: [phone] Chloride [Moles/Vol] 95 mmol/L Low 98 - 10 7 mmol/L [facility] Work Phone: [phone] CO2 [Moles/Vol] 26 mmol/L 22 - 30 mmol/L [facility] Work Phone: [phone] Creatinine [Mass/Vol] 9.71 mg/dL High 0.52 - 1.25 mg/dL [facility] Work Phone: [phone] EGFR IF NonAfrican Guatemalan 5.7 mL/min >60 [facility] Work Phone: [phone] Comment on above: Source- MDRD equatio n with creatinine calibration to IDMS(NKDEP) eGFR not recommended for drug dose adjustment GFR/1.73 sq M.predicted among blacks MDRD (S/P/Bld) [Vol rate/Area] 6.9 mL/min/{1.73_m2} >60 [facility] Work Phone: Glucose [Mass/Vol] 96 mg/dL 70 - 100 mg/dL [facility] Work Phone: [phone] Potassium [Moles/Vol] 4.3 mmol/L 3.5 - 5.1 mmol/L [facility] Work Phone: [phone] Sodium [Moles/Vol] 135 mmol/L 135 - 145 mmol/L [facility] Work Phone: [phone] Urea nitrogen [Mass/Vol] 39 mg/dL High 7 - 20 mg/d L [facility] Work Phone: [phone] CBC Auto DifferentialOrdered By: Darell Sanches on 10-25-2019 Absolute Baso # 0.1 10*3/uL 0 - 0.2 10*3/uL [facility] Work Phone: Absolute Neut # 6.7 10*3/uL 1.8 - 7 10*3/uL [facility] Work Phone: [phone] Basophils/100 WBC (Bld) 0.9 % 0 - 2 % [facility] Work Phone: Eosinophils (Bld) [#/Vol] 0.5 10*3/uL 0 - 0.5 10*3/uL [facility] Work Phone: Eosinophils/100 WBC (Bld) 4.5 % 1 - 6 % [facility] Work Phone: Erythrocyte distribution width (RBC) [Ratio] 13.8 % 11.5 - 14.5 % [facility] Work Phone: Granulocytes/100 WBC (Bld) 60.1 % 40 - 80 % [facility] Work Phone: Hematocrit (Bld) [Volume fraction] 28.3 % Low 40 - 52 % [facility] Work Phone: Hemoglobin (Bld) [Mass/Vol] 9.7 g/dL Low 13 - 18 g/dL [facility] Work Phone: Interpretation and review of laboratory results Abnormal [facility] Work Phone: [phone] Lymphocytes (Bld) [#/Vol] 2.6 10*3/uL 1 - 4.3 10*3/uL [facility] Work Phone: 22 Lymphocytes/100 WBC (Bld) 22.9 % 20 - 40 % [facility] Work Phone: [phone] MCH (RBC) [Entitic mass] 30.0 pg 26 - 34 pg [facility] Work Phone: 22 MCHC 34.3 % 32 - 36 % [facility] Work Phone: 1 MCV (RBC) [Entitic vol] 87.3 fL 80 - 98 fL [facility] Work Phone: Monocytes (Bld) [#/Vol] 1.3 10*3/uL High 0 - 0.8 10*3/uL [facility] Work Phone: Monocytes/100 WBC (Bld) 11.6 % High 2 - 10 % [facility] Work Phone: 1 Platelet mean volume (Bld) [Entitic vol] 8.1 fL 7.4 - 10.4 fL [facility] Work Phone: Platelets (Bld) [#/Vol] 252 10*3/uL 140 - 440 10*3/uL [facility] Work Phone: RBC (Bld) [#/Vol] 3.24 10*6/uL Low 4.4 - 5.9 10*6/uL [facility] Work Phone: 1 WBC (Bld) [#/Vol] 11.2 10*3/uL High 3.6 - 10.7 10*3/uL [facility] Work Phone: 1 Test Performed by [facility], [address] Work Phone: MAGNESIUMOrdered By: Darell Sanches on 10-25-2019 Magnesium [Mass/Vol] 2.2 mg/dL 1.6 - 2 .3 mg/dL [facility] Work Phone: No Panel InformationOrdered By: Darell Sanches on 10-25-2019 Interpretation and review of laboratory results Abnormal [facility] Work Phone: Test Performed by [facility], [address] [place], [place] [address] [facility] Work Phone: PhosphorusOrdered By: Darell Sanches on 10-25-2019 Phosphate [Mass/Vol] 9.3 mg/dL High 2.5 - 4 .5 mg/dL [facility] Work Phone: APTTOrdered By: Cindy Patel on 10-24-2019 aPTT Coag (Bld) [Time] 28.5 s 20 - 30.5 s [facility] Work Phone: [phone] Comment on above: NOTE: The therapeuti c time for Heparin anticoagulation, based on Xa activity inhibition, is an APTT of 46-80 seconds. Basic Metabolic PanelOrdered By: Darell Sanches on 10-24-2019 Anion gap [Moles/Vol] 10 mmol/L [facility] Work Phone: [phone] Calcium [Mass/Vol] 8.6 mg/dL 8.4 - 10. 4 mg/dL [facility] Work Phone: [phone] Chloride [Moles/Vol] 94 mmol/L Low 98 - 10 7 mmol/L [facility] Work Phone: [phone] CO2 [Moles/Vol] 31 mmol/L High 22 - 30 mmol/L [facility] Work Phone: [phone] Creatinine [Mass/Vol] 7.11 mg/dL High 0.52 - 1.25 mg/dL [facility] Work Phone: [phone] EGFR IF NonAfrican Guatemalan 8.1 mL/min >60 [facility] Work Phone: [phone] Comment on above: Source- MDRD equatio n with creatinine calibration to IDMS(NKDEP) eGFR not recommended for drug dose adjustment GFR/1.73 sq M.predicted among blacks MDRD (S/P/Bld) [Vol rate/Area] 9.8 mL/min/{1.73_m2} >60 [facility] Work Phone: [phone] Glucose [Mass/Vol] 93 mg/dL 70 - 100 mg/dL [facility] Work Phone: [phone] Potassium [Moles/Vol] 4.1 mmol/L 3.5 - 5.1 mmol/L [facility] Work Phone: [phone] Sodium [Moles/Vol] 135 mmol/L 135 - 145 mmol/L [facility] Work Phone: [phone] Urea nitrogen [Mass/Vol] 28 mg/dL High 7 - 20 mg/d L [facility] Work Phone: [phone] CBC Auto DifferentialOrdered By: Darell Sanches on 10-24-2019 Absolute Baso # 0.1 10*3/uL 0 - 0.2 10*3/uL [facility] Work Phone: [phone] Absolute Neut # 6.2 10*3/uL 1.8 - 7 10*3/uL [facility] Work Phone: [phone] Basophils/100 WBC (Bld) 0.7 % 0 - 2 % [facility] Work Phone: [phone] Eosinophils (Bld) [#/Vol] 0.4 10*3/uL 0 - 0.5 10*3/uL [facility] Work Phone: [phone] Eosinophils/100 WBC (Bld) 3.7 % 1 - 6 % [facility] Work Phone: [phone] Erythrocyte distribution width (RBC) [Ratio] 14.0 % 11.5 - 14.5 % [facility] Work Phone: [phone] Granulocytes/100 WBC (Bld) 63.8 % 40 - 80 % [facility] Work Phone: [phone] Hematocrit (Bld) [Volume fraction] 27.0 % Low 40 - 52 % [facility] Work Phone: [phone] Hemoglobin (Bld) [Mass/Vol] 9.2 g/dL Low 13 - 18 g/dL [facility] Work Phone: [phone] Interpretation and review of laboratory results Abnormal [facility] Work Phone: [phone] Lymphocytes (Bld) [#/Vol] 1.8 10*3/uL 1 - 4.3 10*3/uL [facility] Work Phone: [phone] Lymphocytes/100 WBC (Bld) 18.8 % Low 20 - 40 % [facility] Work Phone: [phone] MCH (RBC) [Entitic mass] 29.6 pg 26 - 34 pg [facility] Work Phone: [phone] MCHC 34.1 % 32 - 36 % [facility] Work Phone: [phone] MCV (RBC) [Entitic vol] 86.9 fL 80 - 98 fL [facility] Work Phone: [phone] Monocytes (Bld) [#/Vol] 1.3 10*3/uL High 0 - 0.8 10*3/uL [facility] Work Phone: 1 Monocytes/100 WBC (Bld) 13.0 % High 2 - 10 % [facility] Work Phone: Platelet mean volume (Bld) [Entitic vol] 8.4 fL 7.4 - 10.4 fL [facility] Work Phone: Platelets (Bld) [#/Vol] 245 10*3/uL 140 - 440 10*3/uL [facility] Work Phone: RBC (Bld) [#/Vol] 3.10 10*6/uL Low 4.4 - 5.9 10*6/uL [facility] Work Phone: WBC (Bld) [#/Vol] 9.7 10*3/uL 3.6 - 10.7 10*3/uL [facility] Work Phone: Culture Blood #1Ordered By: Brett Encarnacion on 10-24-2019 Blood Culture, Routine No growth at 5 days. [facility] Work Phone: Test Performed by [employer] [facility], [address] [place] [address] Specimen Source Comment:Blood [facility] Work Phone: Glomerular Basement Membrane (GBM) Antibody IgGOrdered By: Randolph Liz on 10-24-2019 GBM Ab, IgG (IFA) Negative Negative NA [facility] Work Phone: Comment on above: INTERPRETIVE INFORMA [...] biopsy. Test developed and characteristics determined by [facility]. See Compliance Statement D: [employer] Performed by [facility], [address] [place] [address] www.[employer], Malvin Slade MD, Lab. Director MAGNESIUMOrdered By: Darell Sanches on 10-24-2019 Magnesium [Mass/Vol] 2.1 mg/dL 1.6 - 2 .3 mg/dL [facility] Work Phone: [phone] No Panel InformationOrdered By: Darell Sanches on 10-24-2019 Interpretation and review of laboratory results Abnormal [facility] Work Phone: Test [facility]formed by [facility], [facility] [address] Work Phone: Test Performed by [facility], [address] Work Phone: PhosphorusOrdered By: Darell Sanches on 10-24-2019 Phosphate [Mass/Vol] 5.8 mg/dL High 2.5 - 4 .5 mg/dL [facility] Work Phone: Protime-INROrdered By: Darren Patel on 10-24-2019 INR Coag (PPP) [Relative time] 1.1 {INR} [facility] Work Phone: Comment on above: Recommended Anticoag [...] s 9 - 12 s [facility] Work Phone: Comment on above: . Basic Metabolic PanelOrdered By: Darell Sanches on 10-23-2019 Anion gap [Moles/Vol] 17 mmol/L [facility] Work Phone: Calcium [Mass/Vol] 8.6 mg/dL 8.4 - 10. 4 mg/dL [facility] Work Phone: Chloride [Moles/Vol] 94 mmol/L Low 98 - 10 7 mmol/L [facility] Work Phone: CO2 [Moles/Vol] 24 mmol/L 22 - 30 mmol/L [facility] Work Phone: [phone] Creatinine [Mass/Vol] 11.03 mg/dL High 0.52 - 1.25 mg/dL [facility] Work Phone: [phone] EGFR IF NonAfrican Guatemalan 4.9 mL/min >60 [facility] Work Phone: [phone] Comment on above: Source- MDRD equatio n with creatinine calibration to IDMS(NKDEP) eGFR not recommended for drug dose adjustment GFR/1.73 sq M.predicted among blacks MDRD (S/P/Bld) [Vol rate/Area] 5.9 mL/min/{1.73_m2} >60 [facility] Work Phone: [phone] Glucose [Mass/Vol] 97 mg/dL 70 - 100 mg/dL [facility] Work Phone: [phone] Potassium [Moles/Vol] 3.9 mmol/L 3.5 - 5.1 mmol/L [facility] Work Phone: [phone] Sodium [Moles/Vol] 135 mmol/L 135 - 145 mmol/L [facility] Work Phone: [phone] Urea nitrogen [Mass/Vol] 61 mg/dL High 7 - 20 mg/d L [facility] Work Phone: [phone] CBC Auto DifferentialOrdered By: Darell Sancehs on 10-23-2019 Absolute Baso # 0.1 10*3/uL 0 - 0.2 10*3/uL [facility] Work Phone: Absolute Neut # 7.1 10*3/uL High 1.8 - 7 10*3/uL [facility] Work Phone: [phone] Basophils/100 WBC (Bld) 1.0 % 0 - 2 % S [facility] Work Phone: [phone] Eosinophils (Bld) [#/Vol] 0.5 10*3/uL 0 - 0.5 10*3/uL [facility] Work Phone: Eosinophils/100 WBC (Bld) 4.7 % 1 - 6 % [facility] Work Phone: [phone] Erythrocyte distribution width (RBC) [Ratio] 13.8 % 11.5 - 14.5 % [facility] Work Phone: [phone] Granulocytes/100 WBC (Bld) 65.3 % 40 - 80 % [facility] Work Phone: 1 Hematocrit (Bld) [Volume fraction] 27.6 % Low 40 - 52 % [facility] Work Phone: 1 22 Hemoglobin (Bld) [Mass/Vol] 9.5 g/dL Low 13 - 18 g/dL [facility] Work Phone: [phone] Interpretation and review of laboratory results Abnormal [facility] Work Phone: [phone] 22 Lymphocytes (Bld) [#/Vol] 1.9 10*3/uL 1 - 4.3 10*3/uL [facility] Work Phone: 1 22 Lymphocytes/100 WBC (Bld) 17.3 % Low 20 - 40 % [facility] Work Phone: 1 MCH (RBC) [Entitic mass] 29.7 pg 26 - 34 pg [facility] Work Phone: MCHC 34.3 % 32 - 36 % [facility] Work Phone: 1 MCV (RBC) [Entitic vol] 86.6 fL 80 - 98 fL S [facility] Work Phone: 22 Monocytes (Bld) [#/Vol] 1.3 10*3/uL High 0 - 0.8 10*3/uL [facility] Work Phone: 1 22 Monocytes/100 WBC (Bld) 11.7 % High 2 - 10 % [facility] Work Phone: Platelet mean volume (Bld) [Entitic vol] 7.7 fL 7.4 - 10.4 fL [facility] Work Phone: 1 22 Platelets (Bld) [#/Vol] 248 10*3/uL 140 - 440 10*3/uL [facility] Work Phone: 1 22 RBC (Bld) [#/Vol] 3.18 10*6/uL Low 4.4 - 5.9 10*6/uL [facility] Work Phone: 1 22 WBC (Bld) [#/Vol] 10.8 10*3/uL High 3.6 - 10.7 10*3/uL [facility] Work Phone: 1 Test Performed by [facility], [address] [place], [place] [id number] [place], [place] [address] Work Phone: MAGNESIUMOrdered By: Darell Sanches on 10-23-2019 Magnesium [Mass/Vol] 2.1 mg/dL 1.6 - 2 .3 mg/dL [facility] Work Phone: 1 No Panel InformationOrdered By: Darell Sanches on 10-23-2019 Interpretation and review of laboratory results Abnormal [facility] Work Phone: 1 Test Performed by [facility], [address] [place], [place] [id number] [place], [place] [address] Work Phone: PhosphorusOrdered By: Darell Sanches on 10-23-2019 Phosphate [Mass/Vol] 9.5 mg/dL High 2.5 - 4 .5 mg/dL [facility] Work Phone: Basic Metabolic PanelOrdered By: Delon Jessica on 10-22-2019 Anion gap [Moles/Vol] 14 mmol/L [facility] Work Phone: Calcium [Mass/Vol] 8.9 mg/dL 8.4 - 10. 4 mg/dL [facility] Work Phone: Chloride [Moles/Vol] 95 mmol/L Low 98 - 10 7 mmol/L [facility] Work Phone: CO2 [Moles/Vol] 28 mmol/L 22 - 30 mmol/L [facility] Work Phone: Creatinine [Mass/Vol] 8.75 mg/dL High 0.52 - 1.25 mg/dL [facility] Work Phone: EGFR IF NonAfrican Guatemalan 6.4 mL/min >60 [facility] Work Phone: Comment on above: Source- MDRD equatio n with creatinine calibration to IDMS(NKDEP) eGFR not recommended for drug dose adjustment GFR/1.73 sq M.predicted among blacks MDRD (S/P/Bld) [Vol rate/Area] 7.7 mL/min/{1.73_m2} >60 [facility] Work Phone: [phone] Glucose [Mass/Vol] 94 mg/dL 70 - 100 mg/dL [facility] Work Phone: [phone] Potassium [Moles/Vol] 4.3 mmol/L 3.5 - 5.1 mmol/L [facility] Work Phone: [phone] Sodium [Moles/Vol] 137 mmol/L 135 - 145 mmol/L [facility] Work Phone: [phone] Urea nitrogen [Mass/Vol] 53 mg/dL High 7 - 20 mg/d L [facility] Work Phone: [phone] CBC Auto DifferentialOrdered By: Delon Jessica on 10-22-2019 Absolute Baso # 0.1 10*3/uL 0 - 0.2 10*3/uL [facility] Work Phone: [phone] Absolute Neut # 5.9 10*3/uL 1.8 - 7 10*3/uL [facility] Work Phone: [phone] Basophils/100 WBC (Bld) 0.9 % 0 - 2 % [facility] Work Phone: Eosinophils (Bld) [#/Vol] 0.3 10*3/uL 0 - 0.5 10*3/uL [facility] Work Phone: [phone] Eosinophils/100 WBC (Bld) 3.0 % 1 - 6 % [facility] Work Phone: [phone] Erythrocyte distribution width (RBC) [Ratio] 14.2 % 11.5 - 14.5 % [facility] Work Phone: [phone] Granulocytes/100 WBC (Bld) 63.0 % 40 - 80 % [facility] Work Phone: [phone] Hematocrit (Bld) [Volume fraction] 27.7 % Low 40 - 52 % [facility] Work Phone: [phone] Hemoglobin (Bld) [Mass/Vol] 9.4 g/dL Low 13 - 18 g/dL [facility] Work Phone: [phone] Interpretation and review of laboratory results Abnormal [facility] Work Phone: [phone] Lymphocytes (Bld) [#/Vol] 1.6 10*3/uL 1 - 4.3 10*3/uL [facility] Work Phone: [phone] Lymphocytes/100 WBC (Bld) 17.2 % Low 20 - 40 % [facility] Work Phone: 1) MCH (RBC) [Entitic mass] 29.3 pg 26 - 34 pg [facility] Work Phone: 1) MCHC 33.8 % 32 - 36 % [facility] Work Phone: 1) MCV (RBC) [Entitic vol] 86.7 fL 80 - 98 fL [facility] Work Phone: 1() Monocytes (Bld) [#/Vol] 1.5 10*3/uL High 0 - 0.8 10*3/uL [facility] Work Phone: 1) Monocytes/100 WBC (Bld) 15.9 % High 2 - 10 % [facility] Work Phone: 1) Platelet mean volume (Bld) [Entitic vol] 8.0 fL 7.4 - 10.4 fL [facility] Work Phone: 1() Platelets (Bld) [#/Vol] 264 10*3/uL 140 - 440 10*3/uL [facility] Work Phone: 1) RBC (Bld) [#/Vol] 3.20 10*6/uL Low 4.4 - 5.9 10*6/uL [facility] Work Phone: 1) WBC (Bld) [#/Vol] 9.3 10*3/uL 3.6 - 10.7 10*3/uL [facility] Work Phone: 1 Test Performed by [facility], [address] [place] [address] Str. [place], [place] [address] [facility] Work Phone: 1 Calcium, IonizedOrdered By: Delon Jessica on 10-22-2019 Interpretation and review of laboratory results Abnormal [facility] Work Phone: 1 Ionized Ca 4.20 mg/dL Low 4.3 - 5.2 mg/dL [facility] Work Phone: 1 pH (Bld) 7.43 [pH] [facility] Work Phone: Test Performed by [facility], [address] [place], [place] [address] [facility] Work Phone: 1 FOLATEOrdered By: Earlene you on 10-22-2019 Folate 9.2 ng/mL 2.8 - 20 ng/mL [facility] Work Phone: Glomerular Basement Membrane (GBM) Antibody IgGOrdered By: Jeana Pedraza on 10-22-2019 GBM Ab, IgG (IFA) Negative Negative NA [facility] Work Phone: Comment on above: INTERPRETIVE INFORMA [...] biopsy. Test developed and characteristics determined by [facility]. See Compliance Statement D: [employer]/ Performed by [facility], [address] [place] [id number] www.[employer], Malvin Slade MD, Lab. Director Iron and TIBCOrdered By: Al Irving on 10-22-2019 Interpretation and review of laboratory results Abnormal [facility] Work Phone: Iron [Mass/Vol] 64 ug/dL 49 - 181 ug/dL [facility] Work Phone: 1 Sat 27 % 15 - 50 % [facility] Work Phone: TIBC 234 ug/dL Low 261 - 497 ug/dL [facility] Work Phone: Test Performed by [facility], [address] [place], [place] [address] [facility] Work Phone: MagnesiumOrdered By: Delon Jessica on 10-22-2019 Magnesium [Mass/Vol] 2.0 mg/dL 1.6 - 2 .3 mg/dL [facility] Work Phone: 1 No Panel InformationOrdered By: Earlene Irving on 10-22-2019 Test Performed by [facility], [address] Work Phone: 1 No Panel InformationOrdered By: Delon Jessica on 10-22-2019 Interpretation and review of laboratory results Abnormal [facility] Work Phone: Test Performed by [facility], [address] [place], [place] [address]A Work Phone: PhosphorusOrdered By: Patrick Jessica on 10-22-2019 Phosphate [Mass/Vol] 8.7 mg/dL High 2.5 - 4 .5 mg/dL [facility] Work Phone: T4, FREEOrdered By: Earlene toure on 10-22-2019 Free T4 [Mass/Vol] 1.16 ng/dL 0.78 - 2. 19 ng/dL [facility] Work Phone: Test Performed by [facility] [employer] [facility], [address] [place], [place] [address]A Work Phone: TSH without ReflexOrdered By : Earlene Irving on 10-22-2019 TSH 0.836 u[IU]/mL 0.465 - 4.68 u[IU]/mL [facility] Work Phone: Test Performed by [employer] [facility], [address] [place], [place] [address]A Work Phone: VL RENAL ARTERIAL DUPLEX COM PLETEOrdered By: Brett Encarnacion on 10-22-2019 [facility] Renal Artery Duplex Ordering Physician: Brett Encarnacion Parimutuel Ticket Cashier: Laura Walsh Interpreting Physician: Luciano Shannon Location: [facility] Indications: Hypertension. Smoking history. Acute Kidney [...] supine position. Images were obtained using a [employer] E9 vascular ultrasound machine. The abdominal aorta, [...] + Kidney le (more content not included)... [facility] Work Phone: [facility], [facility] Cardiology Results From Tia/Mabel - 10/22/2019 3:01 PM EST [facility] Renal Artery Duplex Ordering Physician: Brett Encarnacion Parimutuel Ticket Cashier: Laura Walsh Interpreting Physician: Luciano Shannon Location: [facility] Indications: Hypertension. Smoking history. Acute Kidney [...] supine position. Images were obtained using a [employer] E9 vascular ultrasound machine. The abdominal aorta, [...] electronically signed by Luciano Shannon 10/22/2019 15:01 [facility] Work Phone: Vitamin [id number] By: Akin Irving on 10-22-2019 Cobalamin (Vitamin B12) [Mass/Vol] 959 pg/mL High 239 - 931 pg/mL [facility] Work Phone: [phone] Interpretation and review of laboratory results Abnormal [facility] Work Phone: [phone] Basic Metabolic PanelOrdered By: Delon Jessica on 10-21-2019 Anion gap [Moles/Vol] 16 mmol/L [facility] Work Phone: [phone] Calcium [Mass/Vol] 8.7 mg/dL 8.4 - 10. 4 mg/dL [facility] Work Phone: 1 Chloride [Moles/Vol] 94 mmol/L Low 98 - 10 7 mmol/L [facility] Work Phone: [phone] CO2 [Moles/Vol] 25 mmol/L 22 - 30 mmol/L [facility] Work Phone: [phone] Creatinine [Mass/Vol] 11.16 mg/dL High 0.52 - 1.25 mg/dL [facility] Work Phone: EGFR IF NonAfrican Guatemalan 4.8 mL/min >60 [facility] Work Phone: [phone] Comment on above: Source- MDRD equatio n with creatinine calibration to IDMS(NKDEP) eGFR not recommended for drug dose adjustment GFR/1.73 sq M.predicted among blacks MDRD (S/P/Bld) [Vol rate/Area] 5.8 mL/min/{1.73_m2} >60 [facility] Work Phone: [phone] Glucose [Mass/Vol] 103 mg/dL High 70 - 100 mg/dL [facility] Work Phone: Potassium [Moles/Vol] 4.9 mmol/L 3.5 - 5.1 mmol/L [facility] Work Phone: [phone] Sodium [Moles/Vol] 135 mmol/L 135 - 145 mmol/L [facility] Work Phone: [phone] Urea nitrogen [Mass/Vol] 83 mg/dL High 7 - 20 mg/d L [facility] Work Phone: [phone] CBC Auto DifferentialOrdered By: Delon Jessica on 10-21-2019 Absolute Baso # 0.1 10*3/uL 0 - 0.2 10*3/uL [facility] Work Phone: 1 22 Absolute Neut # 6.4 10*3/uL 1.8 - 7 10*3/uL [facility] Work Phone: 1 22 Basophils/100 WBC (Bld) 0.9 % 0 - 2 % [facility] Work Phone: Eosinophils (Bld) [#/Vol] 0.2 10*3/uL 0 - 0.5 10*3/uL [facility] Work Phone: 1 22 Eosinophils/100 WBC (Bld) 2.5 % 1 - 6 % [facility] Work Phone: 1 Erythrocyte distribution width (RBC) [Ratio] 14.8 % High 11.5 - 14.5 % [facility] Work Phone: Granulocytes/100 WBC (Bld) 64.7 % 40 - 80 % [facility] Work Phone: Hematocrit (Bld) [Volume fraction] 27.6 % Low 40 - 52 % [facility] Work Phone: Hemoglobin (Bld) [Mass/Vol] 9.7 g/dL Low 13 - 18 g/dL [facility] Work Phone: Comment on above: Post Transfusion Interpretation and review of laboratory results Abnormal [facility] Work Phone: Lymphocytes (Bld) [#/Vol] 1.8 10*3/uL 1 - 4.3 10*3/uL [facility] Work Phone: 22 Lymphocytes/100 WBC (Bld) 18.5 % Low 20 - 40 % [facility] Work Phone: MCH (RBC) [Entitic mass] 30.0 pg 26 - 34 pg [facility] Work Phone: 22 MCHC 35.3 % 32 - 36 % [facility] Work Phone: MCV (RBC) [Entitic vol] 84.8 fL 80 - 98 fL S [facility] Work Phone: Monocytes (Bld) [#/Vol] 1.3 10*3/uL High 0 - 0.8 10*3/uL [facility] Work Phone: 1 22 Monocytes/100 WBC (Bld) 13.4 % High 2 - 10 % S [facility] [facility] Work Phone: 1 Platelet mean volume (Bld) [Entitic vol] 7.8 fL 7.4 - 10.4 fL [facility] Work Phone: 1 Platelets (Bld) [#/Vol] 299 10*3/uL 140 - 440 10*3/uL [facility] Work Phone: RBC (Bld) [#/Vol] 3.25 10*6/uL Low 4.4 - 5.9 10*6/uL [facility] Work Phone: 1 WBC (Bld) [#/Vol] 9.8 10*3/uL 3.6 - 10.7 10*3/uL [facility] Work Phone: 1 Test Performed by [facility], [address] [place], [place] [address] Work Phone: 1 Calcium, IonizedOrdered By: Delon Jessica on 10-21-2019 Interpretation and review of laboratory results Abnormal [facility] Work [facility]: 1 Ionized Ca 4.10 mg/dL Low 4.3 - 5.2 mg/dL [facility] Work Phone: 1 pH (Bld) 7.41 [pH] [facility] Work Phone: 1 [facility], [address] [place] [address] [facility] Work Phone: MagnesiumOrdered By: Delon Jessica on 10-21-2019 Magnesium [Mass/Vol] 1.9 mg/dL 1.6 - 2 .3 mg/dL [facility] Work Phone: 1 No Panel InformationOrdered By: Delon Jessica on 10-21-2019 Interpretation and review of laboratory results Abnormal [facility] Work [facility]: 1 Test Performed by [facility], [address] [place], [place] [address]A Work Phone: PERIPHERAL BLOOD SMEAR, PATH REVIEWOrdered By: Jeana Pedraza on 10-21-2019 Peripheral Smear see below [facility] Work Phone: Comment on above: See report under Fredy gical Pathology. Test Performed by [facility], [address] [place], [place] [address] [facility] Work Phone: PhosphorusOrdered By: Patrick Jessica on 10-21-2019 Phosphate [Mass/Vol] 9.2 mg/dL High 2.5 - 4 .5 mg/dL [facility] Work Phone: US RETROPERITONEAL COMPLETEO rdered By: [place] Liz on 10-21-2019 Patient Name: GLENN SNYDER ---Ultrasound--- Exam Date/Time 10/21/2019 15:32:01 EST Exam US Retroperitoneal Complete Ordering Physician RANDOLPH PALAFOX Accession Number [id number] CPT4 Codes 70439 () Reason For Exam blossom Report US [...] KEVIN Transcribed Date and Time: 10/21/2019 7:31 [facility] Work Phone: Mike, [facility] Incoming Radiology Results From [facility] - 10/21/2019 7:32 PM EST Patient Name: GLENN SNYDER ---Ultrasound--- Exam Date/Time 10/21/2019 15:32:01 EST Exam US Retroperitoneal Complete Ordering Physician 59[address] RANDOLPH BAKER Accession Number [id number] CPT4 Codes 63443 () Reason For Exam blossom Report US [...] Ordering Physician MD ENCARNACION MATTHEW Accession Number [id number] CPT4 Codes 05542 () Reason For Exam vomiting Report ABDOMEN [...] WENDELL Transcribed Date and Time: 10/21/2019 6:30 [facility] Work Phone: [facility] From [facility] - 10/21/2019 6:30 PM EST Patient Name: GLENN SNYDER ---Diagnostic Radiology--- Exam Date/Time 10/21/2019 18:02:19 EST Exam CR Abdomen AP Ordering Physician MD ENCARNACION MATTHEW Accession Number [id number] CPT4 Codes 50653 () Reason For Exam vomiting Report ABDOMEN [...] WENDELL Transcribed Date and Time: 10/21/2019 6:30 [facility] Work Phone: [phone] ANAOrdered By: Jeana Pedraza on 10-20-2019 CIARAN TITER <1:40 <1:40 {titer} [facility] Work Phone: [phone] Test Performed by [facility], [address] [place] [address] [facility] Work Phone: [phone] Anti-Neutrophilic Cytoplasmi c AntibodyOrdered By: Jeana Pedraza on 10-20-2019 C-ANCA Not detected Not-Detected {titer} [facility] Work Phone: [phone] p-ANCA Titer Not detected Not-Detected {titer} [facility] Work Phone: [phone] Test Performed by [facility], [facility] [place] [place] [address] [facility] Work Phone: [phone] Metabolic PanelOrdered By: Brett Encarnacion on 10-20-2019 Anion gap [Moles/Vol] 15 mmol/L [facility] Work Phone: [phone] Calcium [Mass/Vol] 8.4 mg/dL 8.4 - 10. 4 mg/dL [facility] Work Phone: Chloride [Moles/Vol] 94 mmol/L Low 98 - 10 7 mmol/L [facility] Work Phone: [phone] CO2 [Moles/Vol] 26 mmol/L 22 - 30 mmol/L [facility] Work Phone: Creatinine [Mass/Vol] 9.4 mg/dL High 0.52 - 1.25 mg/dL [facility] Work Phone: 1 EGFR IF NonAfrican Guatemalan 5.9 mL/min >60 [facility] Work Phone: [phone] Comment on above: Source- MDRD equatio n with creatinine calibration to IDMS(NKDEP) eGFR not recommended for drug dose adjustment GFR/1.73 sq M.predicted among blacks MDRD (S/P/Bld) [Vol rate/Area] 7.1 mL/min/{1.73_m2} >60 [facility] Work Phone: [phone] Glucose [Mass/Vol] 110 mg/dL High 70 - 100 mg/dL [facility] Work Phone: [phone] Interpretation and review of laboratory results Abnormal [facility] Work Phone: Potassium [Moles/Vol] 4.0 mmol/L 3.5 - 5.1 mmol/L [facility] Work Phone: Sodium [Moles/Vol] 135 mmol/L 135 - 145 mmol/L [facility] Work Phone: Urea nitrogen [Mass/Vol] 76 mg/dL High 7 - 20 mg/d L [facility] Work Phone: [phone] Test Performed by [facility], [address] [place] [address] [facility] Work Phone: [phone] Metabolic PanelOrdered By: Delon Jessica on 10-20-2019 Anion gap [Moles/Vol] 18 mmol/L [facility] Work Phone: [phone] Calcium [Mass/Vol] 7.9 mg/dL Low 8.4 - 10. 4 mg/dL [facility] Work Phone: [phone] Chloride [Moles/Vol] 95 mmol/L Low 98 - 10 7 mmol/L [facility] Work Phone: [phone] CO2 [Moles/Vol] 24 mmol/L 22 - 30 mmol/L [facility] Work Phone: [phone] Creatinine [Mass/Vol] 13.53 mg/dL High 0.52 - 1.25 mg/dL [facility] Work Phone: [phone] EGFR IF NonAfrican Guatemalan 3.9 mL/min >60 [facility] Work Phone: [phone] Comment on above: Source- MDRD equatio n with creatinine calibration to IDMS(NKDEP) eGFR not recommended for drug dose adjustment GFR/1.73 sq M.predicted among blacks MDRD (S/P/Bld) [Vol rate/Area] 4.7 mL/min/{1.73_m2} >60 [facility] Work Phone: [phone] Glucose [Mass/Vol] 102 mg/dL High 70 - 100 mg/dL [facility] Work Phone: [phone] Interpretation and review of laboratory results Abnormal [facility] Work Phone: [phone] Potassium [Moles/Vol] 4.7 mmol/L 3.5 - 5.1 mmol/L [facility] Work Phone: [phone] Sodium [Moles/Vol] 136 mmol/L 135 - 145 mmol/L [facility] Work Phone: [phone] Urea nitrogen [Mass/Vol] 123 mg/dL High 7 - 20 mg/d L [facility] Work Phone: [phone] Test Performed by [facility], [address] [place] [address] [facility] Work Phone: [phone] CBC Auto DifferentialOrdered By: Delon Jessica on 10-20-2019 Absolute Baso # 0.0 10*3/uL 0 - 0.2 10*3/uL [facility] Work Phone: [phone] Absolute Neut # 6.2 10*3/uL 1.8 - 7 10*3/uL [facility] Work Phone: Basophils/100 WBC (Bld) 0.4 % 0 - 2 % [facility] Work Phone: 1 Eosinophils (Bld) [#/Vol] 0.1 10*3/uL 0 - 0.5 10*3/uL [facility] Work Phone: Eosinophils/100 WBC (Bld) 1.1 % 1 - 6 % [facility] Work Phone: 1 Erythrocyte distribution width (RBC) [Ratio] 13.4 % 11.5 - 14.5 % [facility] Work Phone: Granulocytes/100 WBC (Bld) 69.5 % 40 - 80 % [facility] Work Phone: Hematocrit (Bld) [Volume fraction] 19.3 % Low 40 - 52 % [facility] Work Phone: Hemoglobin (Bld) [Mass/Vol] 6.6 g/dL Critically low 13 - 18 g/dL [facility] Work Phone: Interpretation and review of laboratory results Abnormal [facility] Work Phone: Lymphocytes (Bld) [#/Vol] 1.6 10*3/uL 1 - 4.3 10*3/uL [facility] Work Phone: Lymphocytes/100 WBC (Bld) 18.3 % Low 20 - 40 % [facility] Work Phone: MCH (RBC) [Entitic mass] 29.4 pg 26 - 34 pg [facility] Work Phone: MCHC 34.1 % 32 - 36 % [facility] Work Phone: MCV (RBC) [Entitic vol] 86.2 fL 80 - 98 fL [facility] Work Phone: Monocytes (Bld) [#/Vol] 1.0 10*3/uL High 0 - 0.8 10*3/uL [facility] Work Phone: Monocytes/100 WBC (Bld) 10.7 % High 2 - 10 % [facility] Work Phone: Platelet mean volume (Bld) [Entitic vol] 7.4 fL 7.4 - 10.4 fL [facility] Work Phone: 1 Platelets (Bld) [#/Vol] 267 10*3/uL 140 - 440 10*3/uL [facility] Work Phone: RBC (Bld) [#/Vol] 2.24 10*6/uL Low 4.4 - 5.9 10*6/uL [facility] Work Phone: 1 WBC (Bld) [#/Vol] 9.0 10*3/uL 3.6 - 10.7 10*3/uL [facility] Work Phone: 1 Calcium, IonizedOrdered By: Delon Jessica on 10-20-2019 Interpretation and review of laboratory results Abnormal [facility] Work Phone: Ionized Ca 3.80 mg/dL Low 4.3 - 5.2 mg/dL [facility] Work Phone: 1 pH (Bld) 7.41 [pH] [facility] Work Phone: Test Performed by [facility], [address] [place] [address] [facility] Work Phone: Hemoglobin and Hematocrit, B loodOrdered By: Brett Encanracion on 10-20-2019 Hematocrit (Bld) [Volume fraction] 25.2 % Low 40 - 52 % [facility] Work Phone: Hemoglobin (Bld) [Mass/Vol] 9.0 g/dL Low 13 - 18 g/dL [facility] Work Phone: Interpretation and review of laboratory results Abnormal [facility] Work Phone: Test Performed by [facility], [address] [place] [address] [facility] Work Phone: Hemoglobin and Hematocrit, B loodOrdered By: Delon Jessica on 10-20-2019 Hematocrit (Bld) [Volume fraction] 19.6 % Low 40 - 52 % [facility] Work Phone: 1 Hemoglobin (Bld) [Mass/Vol] 6.7 g/dL Critically low 13 - 18 g/dL [facility] Work Phone: Interpretation and review of laboratory results Abnormal [facility] Work Phone: 1 Test Performed by [facility], [address] [place], [place] [address] [place], [place] [address] Work Phone: 1 Laboratory - Blood bankOrder ed By: Delon Jessica on 10-20-2019 ABO and Rh group Nom (Bld) 9500 [facility] Work Phone: MagnesiumOrdered By: Delon Jessica on 10-20-2019 Magnesium [Mass/Vol] 1.8 mg/dL 1.6 - 2 .3 mg/dL [facility] Work Phone: 1 No Panel InformationOrdered By: Delon Jessica on 10-20-2019 Test Performed by [facility], [facility] [address] Work Phone: Test Performed by [facility], [facility] [address] Work Phone: PREPARE RBC (CROSSMATCH), 2 UnitsOrdered By: Delon Jessica on 10-20-2019 Blood product unit ID (Dose) [#] [id number] [facility] Work Phone: Blood product unit ID (Dose) [#] [id number] [facility] Work Phone: Dispense Status Blood Bank transfused [facility] Work Phone: Expiration Date [id number] [facility] Work Phone: Product Code Blood Bank [id number] [facility] Work Phone: [facility] Work Phone: PhosphorusOrdered By: Patrick Jessica on 10-20-2019 Interpretation and review of laboratory results Abnormal [facility] Work Phone: Phosphate [Mass/Vol] 12.3 mg/dL High 2.5 - 4 .5 mg/dL [facility] Work Phone: 1 RBC MORPHOLOGYOrdered By: Caleb Jessica on 10-20-2019 Hypochromia Slight [facility] Work Phone: Poikilocytes Slight [facility] Work Phone: RBC morphology finding Nom (Bld) ABNORMAL [facility] Work Phone: Surgical PathologyOrdered By : Jeana Pedraza on 10-20-2019 Surgical Pathology Report SEE BELOW [facility] Work Phone: [phone] [facility] PATHOLOGY AND LABORATORY MEDICINE [address] [place] [address] FINAL PERIPHERAL BLOOD REPORT NAME: GLENN SNYDER : 1965 53 [id number] LOCATION: [place] [address] PROCEDURE 10/19/2019 DATE: SURGEON: JEANA PEDRAZA MD RECEIVED DATE: 10/20/2019 ATTENDING BRETT ENCARNACION REPORT DATE: 10/20/2019 : COPIES TO: DIAGNOSIS: NORMOCYTIC ANEMIA WITH ANISOCYTOSIS, INCLUDING SCHISTOCYTES AND MILD AGGLUTINATION, RULE OUT ANEMIA OF CHRONIC INFLAMMATION/RENAL DISEASE, IRON/NUTRITIONAL DEFICIENCIES, COAGULOPATHY AND/OR PARAPROTEINEMIA NO BLASTS OR DYSGRANULOPOIESIS IS SEEN. 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 CLINICAL INFORMATION: Peripheral [...] characteristics determined [facility] the [facility]. They have not been cleared by [...] specimens. DEPARTMENT OF PATHOLOGY AND LABORATORY MEDICINE [place], [place] [address] [facility] Work Phone: [phone] Add On Lab TestOrdered By: Huseyin Encarnacion on 10-19-2019 Add On Rejected [facility] Work Phone: [phone] Test Performed by [facility], [address] [place], [place] [address] [facility] Work Phone: [phone] Add On Lab TestOrdered By: Cecil Nieves on 10-19-2019 Add On Accepted [facility] Work Phone: [phone] Comment on above: Specimen available & acceptable for analysis. Test Performed by [facility], [address] [place], [place] [address] [facility] Work Phone: [phone] Add On Accepted [facility] Work Phone: [phone] Comment on above: Specimen available & acceptable for analysis. Test Performed by [facility], [address] [place], [place] [address] [facility] Work Phone: [phone] Basic Metabolic PanelOrdered By: Brett Encarnacion on 10-19-2019 Anion gap [Moles/Vol] 20 mmol/L [facility] Work Phone: [phone] Calcium [Mass/Vol] 8.4 mg/dL 8.4 - 10. 4 mg/dL [facility] Work Phone: [phone] Chloride [Moles/Vol] 96 mmol/L Low 98 - 10 7 mmol/L [facility] Work Phone: [phone] CO2 [Moles/Vol] 18 mmol/L Low 22 - 30 mmol/L [facility] Work Phone: [phone] Creatinine [Mass/Vol] 12.26 mg/dL High 0.52 - 1.25 mg/dL [facility] Work Phone: [phone] EGFR IF NonAfrican Guatemalan 4.3 mL/min >60 [facility] Work Phone: [phone] Comment on above: Source- MDRD equatio n with creatinine calibration to IDMS(NKDEP) eGFR not recommended for drug dose adjustment GFR/1.73 sq M.predicted among blacks MDRD (S/P/Bld) [Vol rate/Area] 5.2 mL/min/{1.73_m2} >60 [facility] Work Phone: [phone] Glucose [Mass/Vol] 109 mg/dL High 70 - 100 mg/dL [facility] Work Phone: [phone] Interpretation and review of laboratory results Abnormal [facility] Work Phone: [phone] Potassium [Moles/Vol] 4.4 mmol/L 3.5 - 5.1 mmol/L [facility] Work Phone: [phone] Sodium [Moles/Vol] 134 mmol/L Low 135 - 145 mmol/L [facility] Work Phone: [phone] Urea nitrogen [Mass/Vol] 118 mg/dL High 7 - 20 mg/d L [facility] Work Phone: [phone] Test Performed by [facility], [address] [place] [address] [facility] Work Phone: [phone] Blood Occult Stool Screen #1 Ordered By: Callie Nieves on 10-19-2019 Hemoglobin.gastrointesti nal Ql (Stl) Negative Negative NA [facility] Work Phone: [phone] Test Performed by [facility], [address] [place], [place] [address] [facility] Work Phone: [phone] ComplementOrdered By: Nadiamatt Pedraza on 10-19-2019 C3 Complement 115 mg/dL 85 - 165 mg/dL [facility] Work Phone: C4 ComplementOrdered By: Nadiamatt Pedraza on 10-19-2019 C4 Complement 37 mg/dL 14 - 44 mg/dL [facility] Work Phone: CBC Auto DifferentialOrdered By: Jeana Pedraza on 10-19-2019 Absolute Baso # 0.0 10*3/uL 0 - 0.2 10*3/uL [facility] Work Phone: Absolute Neut # 7.7 10*3/uL High 1.8 - 7 10*3/uL [facility] Work Phone: Basophils/100 WBC (Bld) 0.1 % 0 - 2 % [facility] Work Phone: Eosinophils (Bld) [#/Vol] 0.0 10*3/uL 0 - 0.5 10*3/uL [facility] Work Phone: Eosinophils/100 WBC (Bld) 0.0 % Low 1 - 6 % [facility] Work Phone: Erythrocyte distribution width (RBC) [Ratio] 13.1 % 11.5 - 14.5 % [facility] Work Phone: Granulocytes/100 WBC (Bld) 93.1 % High 40 - 80 % [facility] Work Phone: Hematocrit (Bld) [Volume fraction] 26.9 % Low 40 - 52 % [facility] Work Phone: Hemoglobin (Bld) [Mass/Vol] 9.1 g/dL Low 13 - 18 g/dL [facility] Work Phone: Interpretation and review of laboratory results Abnormal [facility] Work Phone: Lymphocytes (Bld) [#/Vol] 0.4 10*3/uL Low 1 - 4.3 10*3/uL [facility] Work Phone: [phone] Lymphocytes/100 WBC (Bld) 5.1 % Low 20 - 40 % [facility] Work Phone: 1 MCH (RBC) [Entitic mass] 29.2 pg 26 - 34 pg [facility] Work Phone: MCHC 33.8 % 32 - 36 % [facility] Work Phone: MCV (RBC) [Entitic vol] 86.5 fL 80 - 98 fL [facility] Work Phone: Monocytes (Bld) [#/Vol] 0.1 10*3/uL 0 - 0.8 10*3/uL [facility] Work Phone: Monocytes/100 WBC (Bld) 1.7 % Low 2 - 10 % [facility] Work Phone: Platelet mean volume (Bld) [Entitic vol] 8.0 fL 7.4 - 10.4 fL [facility] Work Phone: Platelets (Bld) [#/Vol] 246 10*3/uL 140 - 440 10*3/uL [facility] Work Phone: RBC (Bld) [#/Vol] 3.11 10*6/uL Low 4.4 - 5.9 10*6/uL [facility] Work Phone: WBC (Bld) [#/Vol] 8.3 10*3/uL 3.6 - 10.7 10*3/uL [facility] Work Phone: Test Performed by [facility], [address] [place] [address] [facility] Work Phone: [phone] Abdomen Pelvis Wo Contras tOrdered By: Callie Nieves on 10-19-2019 Patient Name: GLENN SNYDER ---CT--- Exam Date/Time 10/19/2019 08:12:[address] Abdomen/Pelvis (No PO, No IV) Ordering Physician DO NIEVES DAVID J Accession Number [id number] CPT4 Codes 74457 (CT Abdomen/Pelvis (No PO, No IV)) Reason [...] bilateral renal atrophy. No urologic calcification. 3. Vffg-[id number]-uvehmqzx diverticulosis. No acute diverticulitis. Report Dictated on --- Final --- Dictating Physician: MD BUTCHER ANTHONY J Signed Date and Time: 10/19/2019 8:40 am Signed by: MD BUTCHER ANTHONY J Transcribed Date and Time: 10/19/2019 8:41 [facility] Work Phone: Mike, [facility] Incoming Radiology Results From [facility] - 10/19/2019 8:42 AM EST Patient Name: GLENN SNYDER ---CT--- Exam Date/Time 10/19/2019 08:12:[address] Abdomen/Pelvis (No PO, No IV) Ordering Physician DO NIEVES DAVID J Accession Number [id number] CPT4 Codes 93679 (CT Abdomen/Pelvis (No PO, No IV)) Reason [...] bilateral renal atrophy. No urologic calcification. 3. Yhdl-tm-ydyuernx diverticulosis. No acute diverticulitis. Report Dictated on --- Final --- Dictating Physician: MD BUTCHER ANTHONY J Signed Date and Time: 10/19/2019 8:40 am Signed by: MD BUTCHER ANTHONY J Transcribed Date and Time: 10/19/2019 8:41 [facility] Work Phone: Comprehensive Metabolic Pane lOrdered By: Callie Nieves on 10-19-2019 Albumin [Mass/Vol] 3.9 g/dL 3.5 - 5 g/dL [facility] Work Phone: [phone] ALP [Catalytic activity/Vol] 58 U/L 38 - 126 U/L [facility] Work Phone: [phone] ALT [Catalytic activity/Vol] 27 U/L 13 - 69 U/L [facility] Work Phone: [phone] Anion gap [Moles/Vol] 22 mmol/L [facility] Work Phone: [phone] AST [Catalytic activity/Vol] 41 U/L 15 - 46 U/L [facility] Work Phone: [phone] Bilirubin [Mass/Vol] 0.5 mg/dL 0.2 - 1 .3 mg/dL [facility] Work Phone: [phone] Calcium [Mass/Vol] 8.0 mg/dL Low 8.4 - 10. 4 mg/dL [facility] Work Phone: [phone] Chloride [Moles/Vol] 106 mmol/L 98 - 10 7 mmol/L [facility] Work Phone: [phone] CO2 [Moles/Vol] 8 mmol/L Low 22 - 30 mmol/L [facility] Work Phone: [phone] Creatinine [Mass/Vol] 17.04 mg/dL High 0.52 - 1.25 mg/dL [facility] Work Phone: [phone] EGFR IF NonAfrican Guatemalan 3.0 mL/min >60 [facility] Work Phone: [phone] Comment on above: Source- MDRD equatio n with creatinine calibration to IDMS(NKDEP) eGFR not recommended for drug dose adjustment GFR/1.73 sq M.predicted among blacks MDRD (S/P/Bld) [Vol rate/Area] 3.6 mL/min/{1.73_m2} >60 [facility] Work Phone: [phone] Glucose [Mass/Vol] 93 mg/dL 70 - 100 mg/dL [facility] Work Phone: [phone] Interpretation and review of laboratory results Abnormal [facility] Work Phone: [phone] Potassium [Moles/Vol] 6.6 mmol/L Critically high 3.5 - 5.1 mmol/L [facility] Work Phone: 1 Protein [Mass/Vol] 7.1 g/dL 6.3 - 8.2 g/dL [facility] Work Phone: 1 Sodium [Moles/Vol] 136 mmol/L 135 - 145 mmol/L [facility] Work Phone: 1 Urea nitrogen [Mass/Vol] 179 mg/dL High 7 - 20 mg/d L [facility] Work Phone: 1 Test Performed by [facility] [employer] [facility], [address] [facility] [place], [place] [address] [facility] Work Phone: 1 Albumin [Mass/Vol] 4.3 g/dL 3.5 - 5 g/dL [facility] Work Phone: 1 ALP [Catalytic activity/Vol] 68 U/L 38 - 126 U/L [facility] Work Phone: 1 ALT [Catalytic activity/Vol] 31 U/L 13 - 69 U/L [facility] Work Phone: 1 Anion gap [Moles/Vol] 22 mmol/L [facility] Work Phone: 1 AST [Catalytic activity/Vol] 38 U/L 15 - 46 U/L [facility] Work Phone: 1 Bilirubin [Mass/Vol] 0.3 mg/dL 0.2 - 1 .3 mg/dL [facility] Work Phone: 1 Calcium [Mass/Vol] 8.1 mg/dL Low 8.4 - 10. 4 mg/dL [facility] Work Phone: 1 Chloride [Moles/Vol] 104 mmol/L 98 - 10 7 mmol/L [facility] Work Phone: CO2 [Moles/Vol] 10 mmol/L Low 22 - 30 mmol/L [facility] Work Phone: 1 Creatinine [Mass/Vol] 17.95 mg/dL High 0.52 - 1.25 mg/dL [facility] Work Phone: 1 EGFR IF NonAfrican Guatemalan 2.8 mL/min >60 [facility] Work Phone: [phone] Comment on above: Source- MDRD equatio n with creatinine calibration to IDMS(NKDEP) eGFR not recommended for drug dose adjustment GFR/1.73 sq M.predicted among blacks MDRD (S/P/Bld) [Vol rate/Area] 3.4 mL/min/{1.73_m2} >60 [facility] Work Phone: Glucose [Mass/Vol] 101 mg/dL High 70 - 100 mg/dL [facility] Work Phone: [phone] Interpretation and review of laboratory results Abnormal [facility] Work Phone: Potassium [Moles/Vol] 7.3 mmol/L Critically high 3.5 - 5.1 mmol/L [facility] Work Phone: [phone] Protein [Mass/Vol] 7.9 g/dL 6.3 - 8.2 g/dL [facility] Work Phone: Sodium [Moles/Vol] 136 mmol/L 135 - 145 mmol/L [facility] Work Phone: [phone] Urea nitrogen [Mass/Vol] 179 mg/dL High 7 - 20 mg/d L [facility] Work Phone: Test Performed by [facility] Work Phone: EKG 12 Lead - Chest PainOrde red By: Callie Nieves on 10-19-2019 [facility] Test Date: 2019-10-19 Pat Name: Glenn Snyder Department: [facility] Room: 19 Gender: M Inpatient Services Rn: SHAWN : 1965 Requested By: CALLIE INEVES Order Number: [id number] Reading MD: Alessia Tapia Measurements Intervals Edgar Rate: 97 P: 78 DE: 128 QRS: 49 QRSD: 106 T: 83 QT: 376 QTc: 478 Interpretive Statements SINUS RHYTHM LEFT ATRIAL ABNORMALITY INCOMPLETE RIGHT BUNDLE BRANCH BLOCK LEFT VENTRICULAR HYPERTROPHY BORDERLINE PROLONGED QT INTERVAL No previous ECG available for comparison Electronically Signed On 10-19-2019 8:49:06 EST by Alessia Tapia [facility] Phone: Mike, [facility] Incoming Cardiology Results From [facility] - 10/19/2019 8:50 AM EST [employer] [place] [employer] Test Date: 2019-10-19 Pat Name: Glenn Snyder Department: 2AED Room: 19 Gender: M Inpatient Services Rn: SHAWN : 1965 Requested By: CALLIE NIEVES Order Number: [id number] Reading MD: Alessia Tapia Measurements Intervals Edgar Rate: 97 P: 78 DE: 128 QRS: 49 QRSD: 106 T: 83 QT: 376 QTc: 478 Interpretive Statements SINUS RHYTHM LEFT ATRIAL ABNORMALITY INCOMPLETE RIGHT BUNDLE BRANCH BLOCK LEFT VENTRICULAR HYPERTROPHY BORDERLINE PROLONGED QT INTERVAL No previous ECG available for comparison Electronically Signed On 10-19-2019 8:49:06 EST by Alessia Tapia [employer] Work Phone: [phone] HEPATITIS B SURFACE ANTIGENO rdered By: Jeana Pedraza on 10-19-2019 Hepatitis B Surface Ag Not detected Not-D etected [employer] Work Phone: [phone] HIV ScreenOrdered By: Adan Encarnacion on 10-19-2019 HIV 1+2 [id number] AG, EIA Non-Reactive Nonreactive [facility] Work Phone: [phone] Comment on above: Results obtained usi ng [...] # 0.1 10*3/uL 0 - 0.2 10*3/uL [facility] Work Phone: Absolute Neut # 11.3 10*3/uL High 1.8 - 7 10*3/uL [facility] Work Phone: Basophils/100 WBC (Bld) 0.6 % 0 - 2 % [facility] Work Phone: [phone] Eosinophils (Bld) [#/Vol] 0.2 10*3/uL 0 - 0.5 10*3/uL [facility] Work Phone: Eosinophils/100 WBC (Bld) 1.2 % 1 - 6 % [facility] Work Phone: 1 22 Erythrocyte distribution width (RBC) [Ratio] 13.4 % 11.5 - 14.5 % [facility] Work Phone: 22 Granulocytes/100 WBC (Bld) 80.5 % High 40 - 80 % [facility] Work Phone: Hematocrit (Bld) [Volume fraction] 23.2 % Low 40 - 52 % [facility] Work Phone: Hemoglobin (Bld) [Mass/Vol] 7.8 g/dL Low 13 - 18 g/dL [facility] Work Phone: 1 Interpretation and review of laboratory results Abnormal [facility] Work Phone: Lymphocytes (Bld) [#/Vol] 1.4 10*3/uL 1 - 4.3 10*3/uL [facility] Work Phone: 22 Lymphocytes/100 WBC (Bld) 9.8 % Low 20 - 40 % [facility] Work Phone: MCH (RBC) [Entitic mass] 29.4 pg 26 - 34 pg [facility] Work Phone: MCHC 33.6 % 32 - 36 % [facility] Work Phone: MCV (RBC) [Entitic vol] 87.4 fL 80 - 98 fL S [facility] Work Phone: Monocytes (Bld) [#/Vol] 1.1 10*3/uL High 0 - 0.8 10*3/uL [facility] Work Phone: 22 Monocytes/100 WBC (Bld) 7.9 % 2 - 10 % [facility] Work Phone: Platelet mean volume (Bld) [Entitic vol] 7.6 fL 7.4 - 10.4 fL [facility] Work Phone: Platelets (Bld) [#/Vol] 293 10*3/uL 140 - 440 10*3/uL [facility] Work Phone: 22 RBC (Bld) [#/Vol] 2.66 10*6/uL Low 4.4 - 5.9 10*6/uL [facility] Work Phone: 1 WBC (Bld) [#/Vol] 14.1 10*3/uL High 3.6 - 10.7 10*3/uL [facility] Work Phone: Test Performed by [facility], [address] [place], [place] [address] [facility] Work Phone: Hepatitis C AntibodyOrdered By: Jeana Pedraza on 10-19-2019 Hepatitis C Ab Not detected Not-Detected NA [facility] Work Phone: 1 Comment on above: Patients with DETECT ED Hepatitis C Ab results should have a new specimen submitted for supplemental testing with a Hepatitis C Quantitative RNA assay (viral load), if clinically indicated. MagnesiumOrdered By: Callie shaw on 10-19-2019 Magnesium [Mass/Vol] 2.1 mg/dL 1.6 - 2 .3 mg/dL [facility] Work Phone: Test Performed by [facility], [address] [place] [address] [facility] Work Phone: No Panel InformationOrdered By: Brett Encarnacion on 10-19-2019 Test Performed by [facility], [address] [place] [address] [facility] Work Phone: No Panel InformationOrdered By: Jeana Pedraza on 10-19-2019 Test Performed by [facility], [address] [place] [address] Str. [place], [place] [address] [facility] Work Phone: PROCALCITONINOrdered By: Eldon Encarnacion on 10-19-2019 Interpretation See Below [facility] Work Phone: Comment on above: PCT <0.50 = Low risk of severe sepsis and/or septic shock. PCT >2.00 = High risk of severe sepsis and/or septic shock. Interpretation and review of laboratory results Abnormal [facility] Work Phone: Procalcitonin 0.74 ng/mL Abnormal <0.10 [facility] Work Phone: PhosphorusOrdered By: aCllie Nieves on 10-19-2019 Interpretation and review of laboratory results Abnormal [facility] Work Phone: 1 Phosphate [Mass/Vol] 14.8 mg/dL High 2.5 - 4 .5 mg/dL [facility] Work Phone: 1 Test Performed by [facility], [address] [place], [place] [address] [facility] Work Phone: TYPE AND SCREENOrdered By: Cecil Nieves on 10-19-2019 ABO Grouping O [facility] Work Phone: 1 Rh Type Negative [facility] Work Phone: 1 Comment on above: Test Performed by [facility], [address] [place], [place] [address] Test [facility]formed by [facility], [address] [place], [place] [address] [facility] Work Phone: 1 TroponinOrdered By: Callie garcia on 10-19-2019 Interpretation and review of laboratory results Abnormal [facility] Work Phone: 1 Troponin I.cardiac [Mass/Vol] 0.075 ng/mL High 0 - 0.034 ng/mL [facility] Work Phone: 1 Comment on above: . Test Performed by [facility], [address] [place], [place] [address] [facility] Work Phone: 1 UrinalysisOrdered By: Callie Nieves on 10-19-2019 AMORPHOUS CRYSTAL Few Negative /[HPF] [facility] Work Phone: 1 Appearance (U) Clear Clear NA [facility] Work Phone: Bacteria, UA Few Negative /[HPF] [facility] Work Phone: 1 Bilirubin Urine Negative Negative mg/dL [facility] Work Phone: 1 Color (U) Colorless Lt. Yellow NA [facility] Work Phone: Glucose, Ur 200 mg/dL Normal (<70) [facility] Work Phone: 1 Ketones Ql (U) Negative Negative mg/dL [facility] Work Phone: 1 LEUKOCYTES, UA Negative Negative Juliana/uL [facility] Work Phone: [phone] Mucous Threads Few Negative /[LPF] [facility] Work Phone: 1 Nitrite, Urine Negative Negative NA [facility] Work Phone: 1 Occult Blood,Urine 0.2 mg/dL Negative [facility] Work Phone: 1 pH (U) 6.0 [pH] [facility] Work Phone: 1 Protein (U) [Mass/Vol] 200 mg/dL Negative [facility] Work Phone: RBC, UA 6-10 0 - 2 /[HPF] [facility] Work Phone: 1 Specific [place], Urine 1.009 S [facility] Work Phone: Squam Epithel, UA 0-2 3 - 5 /[HPF] [facility] Work Phone: 1 Urobilinogen, Urine Normal Normal ( 0-1) mg/dL [facility] Work Phone: 1 WBC, UA 6-10 0 - 5 /[HPF] [facility] Work Phone: [phone] Performed by [facility], [address] [place] [id number] [place] [address] Work Phone: [phone] XR CHEST PORTABLEOrdered By: Brett Encarnacion on 10-19-2019 Patient Name: GLENN NSYDER ---Diagnostic Radiology--- Exam Date/Time 10/19/2019 12:11:06 EST Exam CR Chest Portable Ordering Physician MD ENCARNACION MATTHEW Accession Number [id number] CPT4 Codes 93923 () Reason For Exam line placement/vascath Report [...] RISA Transcribed Date and Time: 10/19/2019 12:56 [facility] Work Phone: Mike, [facility] Incoming Radiology Results From [facility] - 10/19/2019 12:57 PM EST Patient Name: GLENN SNYDER ---Diagnostic Radiology--- Exam Date/Time 10/19/2019 12:11:06 EST Exam CR Chest Portable Ordering Physician MD ENCARNACION MATTHEW Accession Number [id number] CPT4 Codes 18581 () Reason For Exam line placement/vascath Report [...] RISA Transcribed Date and Time: 10/19/2019 12:56 [facility] Work Phone: Vital Signs Date Time Vital Sign Value Performing Clinician Angelia sweet 04-17-2025 09:36-0400 Body height 177.8 cm Keiry Solares MD Work Phone: [employer] 04-17-2025 09:36-0400 Body mass index (BMI) [Ratio] 21.81 kg/m2 Keiry Solares MD Work Phone: [facility] [employer] 04-17-2025 09:36-0400 Body temperature 98.01 [degF] Keiry Solares MD Work Phone: [facility] [employer] 04-17-2025 09:36-0400 Body weight 68.95 kg Keiry Solares MD Work Phone: [facility] [employer] 04-17-2025 09:36-0400 Diastolic blood pressure 88 mm[Hg] Keiry Solares MD Work Phone: [facility] [employer] 04-17-2025 09:36-0400 Respiratory rate 18 /min Keiry Solares MD Work Phone: [facility] [employer] 04-17-2025 09:36-0400 Systolic blood pressure 113 mm[Hg] Keiry Solares MD Work Phone: [facility] [employer] 04-17-2025 09:29-0400 Heart rate 81 /min Keiry Solares MD Work Phone: [facility] 04-17-2025 09:29-0400 SaO2% (BldA) [Mass fraction] 100 % Keiry Solares MD Work Phone: [facility] 04-09-2025 15:00-0400 Body temperature 98.29 [degF] Leilani Aba Work Phone: [facility] 04-09-2025 15:00-0400 Diastolic blood pressure 64 mm[Hg] Leilani Aba Work Phone: [facility] 04-09-2025 15:00-0400 Heart rate 90 /min Leilani Aba Work Phone: [facility] [employer] 04-09-2025 15:00-0400 Respiratory rate 16 /min Leilani Aba Work Phone: [facility] 04-09-2025 15:00-0400 SaO2% (BldA) [Mass fraction] 98 % Leilani Aba Work Phone: [facility] [employer] 04-09-2025 15:00-0400 Systolic blood pressure 117 mm[Hg] Leilani Aba Work Phone: [facility] 04-09-2025 11:58-0400 Body height 177.8 cm Leilani Aba Work Phone: [facility] [employer] 04-09-2025 11:58-0400 Body mass index (BMI) [Ratio] 21.52 kg/m2 Leilani Troncoso Work Phone: [facility] [employer] 04-09-2025 11:58-0400 Body weight 68.04 kg Leilani Troncoso Work Phone: [facility] [employer] 04-05-2025 20:00-0400 Diastolic blood pressure 89 mm[Hg] Dieter Villegas MD Work Phone: [facility] [employer] 04-05-2025 20:00-0400 Heart rate 91 /min Dieter Villegas MD Work Phone: [facility] [employer] 04-05-2025 20:00-0400 Respiratory rate 16 /min Dieter Villegas MD Work Phone: [facility] 04-05-2025 20:00-0400 SaO2% (BldA) [Mass fraction] 97 % Dieter Villegas MD Work Phone: [facility] 04-05-2025 20:00-0400 Systolic blood pressure 148 mm[Hg] Dieter Villegas MD Work Phone: [facility] 04-05-2025 17:15-0400 Body temperature 97.9 [degF] Dieter Villegas MD Work Phone: [facility] 04-05-2025 10:15-0400 Body height 177.8 cm Dieter Villegas MD Work Phone: [facility] 04-05-2025 10:15-0400 Body mass index (BMI) [Ratio] 21.09 kg/m2 Dieter Villegas MD Work Phone: [facility] [employer] 04-05-2025 10:15-0400 Body weight 66.68 kg Dieter Villegas MD Work Phone: [facility] [employer] 03-21-2025 16:02-0400 Body temperature 98.29 [degF] Keiry Solares MD Work Phone: [facility] [employer] 03-21-2025 16:02-0400 Diastolic blood pressure 85 mm[Hg] Keiry Solares MD Work Phone: [facility] 03-21-2025 16:02-0400 Heart rate 71 /min Keiry Solares MD Work Phone: [facility] 03-21-2025 16:02-0400 Respiratory rate 18 /min Keiry Solares MD Work Phone: [facility] [facility] 03-21-2025 16:02-0400 SaO2% (BldA) [Mass fraction] 94 % Keiry Solares MD Work Phone: [facility] [facility] 03-21-2025 16:02-0400 Systolic blood pressure 147 mm[Hg] Keiry Solares MD Work Phone: [facility] 03-21-2025 03:15-0400 Body mass index (BMI) [Ratio] 22.24 kg/m2 Keiry Solares MD Work Phone: [facility] 03-21-2025 03:15-0400 Body weight 70.31 kg Keiry Solares MD Work Phone: [facility] 03-14-2025 16:17-0400 Body height 177.8 cm Keiry Solares MD Work Phone: [facility] 03-05-2025 14:03-0400 Body temperature 97 [degF] Mejgon Cuca DO Work Phone: [facility] 03-05-2025 14:03-0400 Diastolic blood pressure 83 mm[Hg] Mejgon Cuca DO Work Phone: [facility] [facility] 03-05-2025 14:03-0400 Heart rate 78 /min Mejgon Cuca DO Work Phone: [facility] [facility] 03-05-2025 14:03-0400 Respiratory rate 16 /min Mejgon Cuca DO Work Phone: [facility] [facility] 03-05-2025 14:03-0400 SaO2% (BldA) [Mass fraction] 100 % Mejgon Cuca DO Work Phone: [facility] 03-05-2025 14:03-0400 Systolic blood pressure 137 mm[Hg] Palak Thurman DO Work Phone: [facility] 02-23-2025 14:13-0400 Body height 177.8 cm Palak Thurman DO Work Phone: [facility] 02-23-2025 14:13-0400 Body mass index (BMI) [Ratio] 19.23 kg/m2 Palak Thurman DO Work Phone: [facility] 02-23-2025 14:13-0400 Body weight 60.78 kg Palak Thurman DO Work Phone: [facility] 02-14-2025 10:30-0400 Body height 177.8 cm Mikala Day PA-C Work Phone: [facility] 02-14-2025 10:30-0400 Body mass index (BMI) [Ratio] 18.65 kg/m2 Mikalajimbo Day PA-C Work Phone: [facility] 02-14-2025 10:30-0400 Body temperature 96.8 [degF] Mikalajimbo Day PA-C Work Phone: [facility] 02-14-2025 10:30-0400 Body weight 58.97 kg [place] PA-C Work Phone: [facility] 02-14-2025 10:30-0400 Diastolic blood pressure 72 mm[Hg] Mikala Day PA-C Work Phone: [facility] 02-14-2025 10:30-0400 Heart rate 89 /min [place] Day PA-C Work Phone: [facility] 02-14-2025 10:30-0400 SaO2% (BldA) [Mass fraction] 98 % Mikala Day PA-C Work Phone: [facility] 02-14-2025 10:30-0400 Systolic blood pressure 138 mm[Hg] Mikala Day PA-C Work Phone: [facility] 02-01-2025 15:02-0400 Body temperature 96.69 [degF] Lazaro Rojo MD Work Phone: [facility] 02-01-2025 15:02-0400 Diastolic blood pressure 60 mm[Hg] Lazaro Rojo MD Work Phone: [facility] 02-01-2025 15:02-0400 Heart rate 81 /min Lazaro Rojo MD Work Phone: [facility] 02-01-2025 15:02-0400 Respiratory rate 16 /min Lazaro Rojo MD Work Phone: [facility] 02-01-2025 15:02-0400 SaO2% (BldA) [Mass fraction] 98 % Lazaro Rojo MD Work Phone: [facility] 02-01-2025 15:02-0400 Systolic blood pressure 118 mm[Hg] Lazaro Rojo MD Work Phone: [facility] 02-01-2025 05:36-0400 Body mass index (BMI) [Ratio] 14.58 kg/m2 Lazaro Rojo MD Work Phone: [facility] 02-01-2025 05:36-0400 Body weight 46.1 kg Lazaro Rojo MD Work Phone: [facility] 01-30-2025 10:02-0400 Body height 177.8 cm Lazaro Rojo MD Work Phone: [facility] 08-28-2024 15:33-0500 Body height 177.8 cm Jr Shah MD Work Phone: [facility] 08-28-2024 15:33-0500 Body mass index (BMI) [Ratio] 29.56 kg/m2 Jr Shah MD Work Phone: [facility] 08-28-2024 15:33-0500 Body weight 93.44 kg Jr Shah MD Work Phone: [facility] [employer] 08-28-2024 15:33-0500 Diastolic blood pressure 80 mm[Hg] Jr Shah MD Work Phone: [facility] 08-28-2024 15:33-0500 Heart rate 75 /min Jr Shah MD Work Phone: [facility] 08-28-2024 15:33-0500 Systolic blood pressure 130 mm[Hg] Jr Shah MD Work Phone: [facility] 11-12-2023 14:16-0500 Diastolic blood pressure 84 mm[Hg] Quiana Contreras CONTINUOUS MINER OPERATOR HELPER - [employer] WASTE TECHNICIAN Work Phone: [facility] [employer] 11-12-2023 14:16-0500 Systolic blood pressure 138 mm[Hg] Quiana Contreras CONTINUOUS MINER OPERATOR HELPER - [employer] WASTE TECHNICIAN Work Phone: [facility] [employer] 11-12-2023 13:41-0500 Body height 177.8 cm Quiana Contreras CONTINUOUS MINER OPERATOR HELPER - [employer] WASTE TECHNICIAN Work Phone: [facility] 11-12-2023 13:41-0500 Body mass index (BMI) [Ratio] 29.84 kg/m2 Quiana Contreras CONTINUOUS MINER OPERATOR HELPER - [employer] WASTE TECHNICIAN Work Phone: [facility] [employer] 11-12-2023 13:41-0500 Body weight 94.35 kg Quiana Contreras CONTINUOUS MINER OPERATOR HELPER - HAZARD[employer] WASTE TECHNICIAN Work Phone: [facility] 11-12-2023 13:41-0500 Heart rate 85 /min Quiana Contreras CONTINUOUS MINER OPERATOR HELPER - HAZARD[employer] WASTE TECHNICIAN Work Phone: [facility] 08-17-2023 13:12-0500 Diastolic blood pressure 67 mm[Hg] Dangelo Glencoe DO Work Phone: [facility] [employer] 08-17-2023 13:12-0500 Heart rate 84 /min Gurinderlyn Ozzie DO Work Phone: [facility] 08-17-2023 13:12-0500 Respiratory rate 18 /min Gurinderlyn Glencoe DO Work Phone: [facility] [facility] 08-17-2023 13:12-0500 SaO2% (BldA) [Mass fraction] 98 % Jaklyn Ozzie DO Work Phone: [facility] 08-17-2023 13:12-0500 Systolic blood pressure 94 mm[Hg] Dangleo Horne DO Work Phone: [facility] [employer] 08-17-2023 09:13-0500 Body height 177.8 cm Dangelo Horne DO Work Phone: [facility] 08-17-2023 09:13-0500 Body mass index (BMI) [Ratio] 28.7 kg/m2 Dangelo Horne DO Work Phone: [facility] 08-17-2023 09:13-0500 Body weight 90.72 kg Dangelo Horne DO Work Phone: [facility] 08-17-2023 08:50-0500 Body temperature 99 [degF] Dangelo Horne DO Work Phone: [facility] [employer] 05-01-2023 20:36-0400 Diastolic blood pressure 85 mm[Hg] Jese Frank MD Work Phone: [facility] 05-01-2023 20:36-0400 Heart rate 74 /min Jese Frank MD Work Phone: [facility] 05-01-2023 20:36-0400 Respiratory rate 20 /min Jese Frank MD Work Phone: [facility] 05-01-2023 20:36-0400 SaO2% (BldA) [Mass fraction] 95 % Jese Frank MD Work Phone: [facility] 05-01-2023 20:36-0400 Systolic blood pressure 135 mm[Hg] Jese Frank MD Work Phone: [facility] 05-01-2023 20:08-0400 Body height 177.8 cm Jese Frank MD Work Phone: [facility] 05-01-2023 20:08-0400 Body mass index (BMI) [Ratio] 28.7 kg/m2 Jese Frank MD Work Phone: [facility] 05-01-2023 20:08-0400 Body temperature 98.2 [degF] Jese Frank MD Work Phone: [facility] 05-01-2023 20:08-0400 Body weight 90.72 kg Jese Frank MD Work Phone: [facility] 12-25-2021 15:50-0400 Body height 177.8 cm Rudy Painter MD Work Phone: [facility] 12-25-2021 15:50-0400 Body weight 99.79 kg Rudy Painter MD Work Phone: [facility] 12-25-2021 15:50-0400 Diastolic blood pressure 72 mm[Hg] Rudy Painter MD Work Phone: [facility] 12-25-2021 15:50-0400 Heart rate 70 /min Rudy Painter MD Work Phone: [facility] 12-25-2021 15:50-0400 Systolic blood pressure 130 mm[Hg] Rudy Painter MD Work Phone: [facility] 09-15-2021 11:20-0500 Body temperature 97.59 [degF] Cindy Patel MD Work Phone: [facility] 09-15-2021 11:20-0500 Diastolic blood pressure 83 mm[Hg] Cindy Patel MD Work Phone: [facility] 09-15-2021 11:20-0500 Heart rate 85 /min Cindy Patel MD Work Phone: [facility] 09-15-2021 11:20-0500 Respiratory rate 20 /min Cindy Patel MD Work Phone: [facility] 09-15-2021 11:20-0500 SaO2% (BldA) [Mass fraction] 98 % Cindy Patel MD Work Phone: [facility] 09-15-2021 11:20-0500 Systolic blood pressure 144 mm[Hg] Cindy Patel MD Work Phone: [facility] 09-15-2021 09:19-0500 Body height 177.8 cm Cindy Patel MD [facility] Phone: [facility] 09-15-2021 09:19-0500 Body mass index (BMI) [Ratio] 30.05 kg/m2 Cindy Patel MD Work Phone: [facility] 09-15-2021 09:19-0500 Body weight 94.98 kg Cindy Patel MD Work Phone: [facility] 10-27-2019 20:02-0500 Body temperature 97.2 [degF] Callie StepOne Work Phone: [facility] Work Phone: 10-27-2019 20:02-0500 Diastolic blood pressure 77 mm[Hg] Callie [employer] Work Phone: [facility] Work Phone: 10-27-2019 20:02-0500 Heart rate 107 /min ALOHA Work Phone: [facility] Work Phone: 10-27-2019 20:02-0500 Respiratory rate 16 /min [facility]ie [employer] Work Phone: [facility] Work Phone: 10-27-2019 20:02-0500 SaO2% (BldA) [Mass fraction] 96 % [facility] Work Phone: [facility] Work Phone: 10-27-2019 20:02-0500 Systolic blood pressure 112 mm[Hg] AL[place]A Work Phone: [facility] Work Phone: 10-27-2019 14:10-0500 Body mass index (BMI) [Ratio] 27.08 kg/m2 [facility] Work Phone: [facility] Work Phone: 10-27-2019 14:10-0500 Body weight 85.6 kg [place] Work Phone: 10-19-2019 12:45-0500 Body height 177.8 cm Callie Gomezh DO [facility] Work Phone: Encounters Encounter Date Encounter Type Care Provider Facility Start: [facility] Start: 04-26-[facility] Start: 04-25-2025 End: 04-25-2025 Telephone encounter Yasemin English Mozulma CONTINUOUS MINER OPERATOR HELPER - [employer] WASTE TECHNICIAN Work Phone: [facility] [place] Comment on above: Appointment Start: 04-25-2025 ambulatory Jayesh Samuelsros OLS Faci lity:[facility] Start: 04-24-2025 [facility] Start: 04-23-2025 ambulatory Jayesh Samuelsros OLS Faci lity:[facility] Start: 04-20-2025 ambulatory Jayesh Katsaros OLS Faci lity:[facility] Start: 04-19-2025 [facility]ulatory [facility] Start: 04-18-2025 ambulatory Jayesh Clarasaros OLS Faci lity:[facility] Start: 04-17-2025 End: 04-17-2025 Emergency department patient visit Keiry Solares MD Work Phone: [facility] Comment on above: Supratherapeutic INR (Primary Dx); Necrosis (HCC) Start: 04-17-2025 [facility] Facility:[facility] Start: 04-16-2025 [facility] Start: 04-12-2025 End: 04-12-2025 Subsequent hospital visit by physician [facility] Exam Room [address] Comment on above: Hemoptysis Start: 04-12-2025 End: 04-12-20[facility] Start: 04-11-2025 End: 04-11-2025 Telephone encounter Piedad Genao DPM Work Phone: [facility] Comment on above: Appointment Start: 04-09-2025 End: 04-09-2025 Emergency department patient visit LEILANI TRONCOSO [facility] Comment on above: ESRD on hemodialysis (CMS/HCC) (HCC) (Primary Dx); Contusion of dorsum of right hand Start: 04-09-2025 ambulatory Navarroer Berkleya jena OLS Facility:[facility] Start: 04-05-2025 End: 04-05-2025 Telephone encounter Sophia Lara APRN - [employer]ARD[employer] WASTE TECHNICIAN Work Phone: [facility] Comment on above: Cancelled Appointmen t Start: 04-05-2025 End: 04-05-2025 Emergency department patient visit Dieter Villegas MD Work Phone: [facility] Comment on above: Tachycardia (Primary Dx); Dialysis patient (HCC) Start: 04-05-2025 ambulatory Kayley Goodena jena OLS Facility:[facility] Start: 04-02-20[facility] Start: 03-29-20[facility] Start: 03-26-2025 End: 03-28-2025 Telephone encounter Sophia Lara APRN - [employer]ARD[employer] WASTE TECHNICIAN Work Phone: [facility] Comment on above: Appointment Start: 03-26-2025 ambulatory Jayesh Stubbs OLS Faci lity:[facility] Start: 03-22-2025 [facility] Start: 03-22-2025 Registered Referred Kayley ortiz MD -[facility] Start: 03-13-2025 End: 03-21-2025 Evaluation and management of inpatient Keiry Solares MD Work Phone: [facility] Card[facility] Progressive [facility] Unit PCU 5W Comment on above: SOB (shortness of br eath) (Primary Dx); 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, 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) Start: 03-12-2025 ambulatory Jayesh ALBA Faci lity:[facility] Start: 03-12-2025 [facility] Start: 03-09-2025 ambulatory Jayesh ALBA Faci lity:[facility] Start: 03-09-2025 Registered Referred Jayesh Stubbs [facility] [employer] [facility] Start: 03-08-2025 End: 03-08-2025 Orders Only Christelle Eckert RN [facility] [place] Comment on above: Tracheostomy depende nce (HCC) (Primary Dx); Tracheostomy complication, unspecified complication type (HCC); Acute respiratory failure with hypoxia (HCC) [J96.01] Start: 03-08-2025 Registered Referred Kayley ortiz MD [facility] Start: 02-23-2025 End: 02-23-2025 Telephone encounter Elly Jett MD Work Phone: [facility] Comment on above: Appointment Start: 02-21-2025 End: 02-25-2025 Telephone encounter Hussain Quintana MD Work Phone: [facility] [place] Comment on above: Other Start: 02-20-2025 End: 03-05-2025 Evaluation and management of inpatient Palak Thurman DO Work Phone: [facility] Trauma Neuro Progressive Care Unit PCU 3W Start: 02-20-2025 End: 02-20-2025 ambulatory Kayley Melendrez MD [facility] Work Phone: Start: 02-20-2025 End: 02-20-2025 Departed Referred Kayley Melendrez MD [facility] Start: 02-20-2025 Registered Referred Kayley ortiz MD [facility] [place] [facility] Start: 02-20-2025 End: 02-20-2025 ambulatory Kayley ALBA Facility:[facility] Start: 02-15-2025 End: 02-15-2025 ambulatory Kayley Melendrez MD [facility] Work Phone: Start: 02-15-2025 End: 02-15-2025 Departed Referred Kayley [employer] Start: 02-15-2025 Registered Referred Kayley Shen [facility] MCCANN Start: 02-14-2025 End: 02-14-2025 Office outpatient visit 25 minutes Mikala Day PA-C Work Phone: [facility] [place] Comment on above: Sacral osteomyelitis (CMS/HCC) (HCC) (Primary Dx); ESRD on hemodialysis (CMS/HCC) (HCC); Ischemic ulcer of toe of left foot, 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); Decubitus ulcer of sacral region, unstageable (HCC); 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 Start: 02-14-2025 End: 02-15-2025 ambulatory [facility] Start: 02-13-2025 ambulatory Kayley bella OLS Facility:[facility] Start: 02-13-2025 Registered Referred Kayley [employer] Start: 02-12-2025 End: 02-12-2025 ambulatory [facility] [place] [employer] Start: 02-12-2025 End: 02-12-2025 Departed Referred [facility] [employer] Start: 02-12-2025 Registered Referred Kayley Shen [employer] Start: 02-12-2025 End: 02-12-2025 ambulatory Kayley Melendrez OLS Facility:[facility] Start: 02-08-2025 End: 02-08-2025 ambulatory Kayley [facility] [employer] Start: 02-08-2025 End: 02-08-2025 Departed Referred Kayley Shen [employer] Start: 02-08-2025 Registered Referred Kayley ortiz MD [employer] Start: 02-07-2025 End: 02-08-2025 ambulatory Kayley ALBA [facility] Work Phone: Start: 02-07-2025 End: 02-07-2025 Departed Referred Jayesh [facility]bs [facility] Start: 02-07-2025 [facility] Start: 02-07-2025 End: 02-07-2025 ambulatory Jayesh Clarahoward ALBA Facility:[facility] Start: 02-05-2025 End: 02-05-2025 ambulatory Kayley Melendrez MD [facility] Work Phone: Start: 02-05-2025 End: 02-05-2025 Departed Referred Kayley Melendrez MD [facility] Start: 02-05-2025 End: 02-05-2025 ambulatory Kayley Mendozabriansamson LABA Facility:[facility] Start: 02-02-2025 End: 02-02-2025 Anticoagulant drug monitoring Adalberto SanchezD [facility] Pharmacy Comment on above: S/P AVR (Primary Dx) Start: 01-29-2025 End: 02-05-2025 Telephone encounter Adina Montenegro MA [facility] Anticoagulatio n Management Service Comment on above: Anticoagulation Start: 01-19-2025 End: 02-01-2025 Evaluation and management of inpatient Lazaro Rojo MD Work Phone: [facility] Cardiac Vascular Progressive Care Unit PCC 1C Start: 01-18-2025 End: 01-18-2025 ambulatory Jefferson Nathan MD Work Phone: [facility] Comment on above: Acute respiratory fa ilure with hypoxia (HCC) [J96.01] (Primary Dx); RSV (acute bronchiolitis due to respiratory syncytial virus); Tracheostomy dependence (HCC); Leg DVT (deep venous thromboembolism), acute, left (HCC); Pulmonary embolism, unspecified chronicity, unspecified pulmonary embolism type, unspecified whether acute cor pulmonale present (HCC); S/P AVR Start: 01-17-2025 End: 01-17-2025 ambulatory Jefferson Nathan MD Work Phone: [facility] Comment on above: RSV (acute [...] nce (HCC) (Primary Dx); ESRD on hemodialysis ([facility]) (HCC); 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; Decubitus ulcer of sacral region, unstageable (HCC); Sacral osteomyelitis (CMS/HCC) (HCC) Start: 01-16-2025 End: 01-16-2025 ambulatory Jefferson Nathan MD Work Phone: [facility] Comment on above: RSV (acute bronchiol itis due to respiratory syncytial virus) (Primary Dx); Tracheostomy dependence (HCC); Pneumonia of both lungs due to methicillin susceptible Staphylococcus aureus (MSSA), unspecified part of lung (HCC); Acute respiratory failure with hypoxia ([facility]) [J96.01]; Nonrheumatic aortic valve stenosis; Pulmonary embolism, unspecified chronicity, unspecified pulmonary embolism type, unspecified whether acute cor pulmonale present (HCC) Start: 01-15-2025 End: 01-15-2025 ambulatory Jefferson Nathan MD Work Phone: [facility] Comment on above: RSV (acute [...] 01-14-2025 ambulatory Hany Berrios MD Work Phone: [facility] Comment on above: Acute respiratory fa ilure with hypoxia (HCC) [J96.01] (Primary Dx); 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]; Pulmonary embolism, other, unspecified chronicity, unspecified whether acute cor pulmonale present (HCC) Start: 01-12-2025 End: 01-12-2025 ambulatory Mikala Day PA-C Work Phone: [facility] Infectious Dis Comment on above: Tracheostomy depende nce (HCC) (Primary Dx); Sacral osteomyelitis (CMS/HCC) (HCC); Leukocytosis, unspecified type; Decubitus ulcer of sacral region, unstageable (HCC); [facility] (current) use of antibiotics Acute respiratory fa ilure with hypoxia (HCC) [J96.01] (Primary Dx); 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]; Pulmonary embolism, other, unspecified chronicity, unspecified whether acute cor pulmonale present (HCC) Start: 01-11-2025 End: 01-11-2025 ambulatory Mikala Day PA-C Work Phone: [facility]ious Dis Comment on above: Tracheostomy [...] 01-10-2025 ambulatory Hany Berrios MD Work Phone: [facility] [place] Comment on above: Acute respiratory fa ilure with hypoxia (HCC) [J96.01] (Primary Dx); 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]; Pulmonary embolism, other, unspecified chronicity, unspecified whether acute cor pulmonale present (HCC) Start: 01-09-2025 End: 01-09-2025 ambulatory Mikala Day PA-C Work Phone: [facility] Comment on above: Tracheostomy [...] 01-08-2025 ambulatory Mikala Day PA-C Work Phone: [facility] Comment on above: Tracheostomy [...] 01-05-2025 ambulatory Sydni Forrester CNP Work Phone: [facility] Sinha Comment on above: Pneumonia of both marleny ngs due to methicillin susceptible Staphylococcus aureus (MSSA), unspecified part of lung (HCC) (Primary Dx); Acute hypoxic respiratory failure (HCC); Tracheostomy dependence (HCC); ESRD on hemodialysis (CMS/HCC) (HCC); Sacral osteomyelitis (CMS/HCC) (HCC); Decubitus ulcer of sacral region, unstageable (HCC) Start: 01-05-2025 End: 01-05-2025 Patient encounter procedure Chandrika Jonathan Allen CONTINUOUS MINER OPERATOR HELPER - [employer] WASTE TECHNICIAN Work Phone: [facility] [place] Comment on above: Acute respiratory fa ilure with hypoxia (HCC) [J96.01] (Primary Dx); 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]; LRTI (lower respiratory tract infection) [J22] Start: 01-04-2025 End: 01-04-2025 Admission to same day surgery center Sydni Husain APRN - [employer] WASTE TECHNICIAN Work Phone: [facility] [place] Comment on above: Tracheostomy depende nce (HCC) (Primary Dx); Pneumonia of both lungs due to methicillin susceptible Staphylococcus aureus (MSSA), unspecified part of lung (HCC); Acute hypoxic respiratory failure (HCC); Peritonitis due to fungus (HCC); ESRD on hemodialysis (CMS/HCC) (HCC); Sacral osteomyelitis (CMS/HCC) (HCC); Leukocytosis, unspecified type; History of abdominal surgery Start: 01-04-2025 End: 01-04-2025 ambulatory Sydni Husain CONTINUOUS MINER OPERATOR HELPER - [employer] WASTE TECHNICIAN Work Phone: [facility] [place] Start: 01-04-2025 End: 01-04-2025 [facility] hospital care/day 25 minutes Angeles Blackburn DO Work Phone: [facility] [place] Comment on above: 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] (Primary Dx); Acute respiratory failure with hypoxia (HCC) [J96.01] Start: 01-03-2025 End: 01-03-2025 ambulatory Josephine Cash APRN - [employer] WASTE TECHNICIAN Work Phone: [facility] [place] Comment on above: Sacral osteomyelitis (CMS/HCC) (HCC) (Primary Dx); Decubitus ulcer of sacral region, unstageable (HCC); Pneumonia of both lungs due to methicillin susceptible Staphylococcus aureus (MSSA), unspecified part of lung (HCC); Leukocytosis, unspecified type; ESRD on hemodialysis (CMS/HCC) (HCC); S/P AVR Start: 01-03-2025 End: 01-03-2025 [facility] hospital care/day 25 minutes Angeles Bere DO Work Phone: [facility] [place] Comment on above: 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] (Primary Dx); Acute respiratory failure with hypoxia (HCC) [J96.01] Start: 01-02-2025 End: 01-02-2025 ambulatory Josephine Cash APRN - [employer] WASTE TECHNICIAN Work Phone: [facility] [place] Comment on above: Leukocytosis, unspec ified type (Primary Dx); Pneumonia of both lungs due to methicillin susceptible Staphylococcus aureus (MSSA), unspecified part of lung (HCC); Acute hypoxic respiratory failure (HCC); Decubitus ulcer of sacral region, unstageable (HCC); ESRD on hemodialysis ([facility]) (HCC); S/P AVR Start: 01-02-2025 End: 01-02-2025 [facility] hospital care/day 25 minutes Angeles Bere DO Work Phone: [facility] [place] Comment on above: 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] (Primary Dx); Acute respiratory failure with hypoxia (HCC) [J96.01] Start: 01-01-2025 End: 01-01-2025 ambulatory Ochoa Guido MD Work Phone: [facility] Cardiology [facility] [place] Comment on above: Persistent atrial fi brillation (HCC) (Primary Dx) Leukocytosis, unspec ified type (Primary Dx); Pneumonia of both lungs due to methicillin susceptible Staphylococcus aureus (MSSA), unspecified part of lung (HCC); Acute hypoxic respiratory failure (HCC); Tracheostomy dependence (HCC); Decubitus ulcer of sacral region, unstageable (HCC); ESRD on hemodialysis (CMS/HCC) (HCC); S/P AVR Start: 01-01-2025 End: 01-01-2025 [facility] hospital care/day 25 minutes Angeles CalderonGlen DO Work Phone: [facility] [employer] [facility] [employer] Comment on above: 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] (Primary Dx); Acute respiratory failure with hypoxia (HCC) [J96.01] Start: 12-30-2024 End: 12-30-2024 ambulatory Josephine Cash CONTINUOUS MINER OPERATOR HELPER - [employer] Work Phone: [facility] Infectious Dis Comment on above: Leukocytosis, unspec ified type (Primary Dx); Acute hypoxic respiratory failure (HCC); Tracheostomy dependence (HCC); S/P AVR; ESRD on hemodialysis (CMS/HCC) (HCC); Decubitus ulcer of sacral region, unstageable (HCC) Start: 12-28-2024 End: 12-28-2024 ambulatory Mercedes Hinton CONTINUOUS MINER OPERATOR HELPER - [employer] Work Phone: [facility] [employer] [facility] [employer] Start: 12-28-2024 End: 12-28-2024 Patient encounter procedure Mercedes Hinton CONTINUOUS MINER OPERATOR HELPER - [employer] Work Phone: [facility] [employer] Comment on above: Acute respiratory fa ilure with hypoxia (HCC) [J96.01] (Primary Dx); 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]; Tracheostomy care (HCC) [Z43.0]; History of pulmonary embolus (PE) [Z86.711] Start: 12-27-2024 End: 12-27-2024 ambulatory Mercedes Hinton CONTINUOUS MINER OPERATOR HELPER - [employer] WASTE TECHNICIAN Work Phone: [facility] [employer] Start: 12-27-2024 End: 12-27-2024 Patient encounter procedure Mercedes Hinton CONTINUOUS MINER OPERATOR HELPER - [employer] WASTE TECHNICIAN Work Phone: [facility] [employer] Comment on above: Acute respiratory fa ilure with hypoxia (HCC) [J96.01] (Primary Dx); 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]; Tracheostomy care (HCC) [Z43.0]; History of pulmonary embolus (PE) [Z86.711] Start: 12-26-2024 End: 12-26-2024 ambulatory Mercedes Hinton CONTINUOUS MINER OPERATOR HELPER - HA[employer]ARD[employer] MATERIALS WASTE TECHNICIAN Work Phone: [facility] Start: 12-26-2024 End: 12-26-2024 Patient encounter procedure Mercedes Hinton CONTINUOUS MINER OPERATOR HELPER - HAZARDOUS MATERIALS WASTE TECHNICIAN Work Phone: [facility] Comment on above: Acute respiratory fa ilure with hypoxia (HCC) [J96.01] (Primary Dx); 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]; Tracheostomy care (HCC) [Z43.0]; History of pulmonary embolus (PE) [Z86.711] Start: 12-22-2024 End: 12-22-2024 ambulatory Chandrika Allen CONTINUOUS MINER OPERATOR HELPER - HAZARD[employer] MATERIALS WASTE TECHNICIAN Work Phone: [facility] Start: 12-22-2024 End: 12-22-2024 Patient encounter procedure Chandrika Allen CONTINUOUS MINER OPERATOR HELPER - HAZARD[employer] MATERIALS WASTE TECHNICIAN Work Phone: [facility] Comment on above: 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] (Primary Dx); Acute respiratory failure with hypoxia (HCC) [J96.01]; LRTI (lower respiratory tract infection) [J22] Start: 12-21-2024 End: 12-21-2024 ambulatory Chandrika Allen CONTINUOUS MINER OPERATOR HELPER - [employer] WASTE TECHNICIAN Work Phone: [facility] Start: 12-21-2024 End: 12-21-2024 Patient encounter procedure Chandrikaflako Allen CONTINUOUS MINER OPERATOR HELPER - HAZARDOUS MATERIALS WASTE TECHNICIAN Work Phone: [facility] Comment on above: 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] (Primary Dx); Acute respiratory failure with hypoxia (HCC) [J96.01]; LRTI (lower respiratory tract infection) [J22] Start: 12-20-2024 End: 12-20-2024 ambulatory Chandrika Allen CONTINUOUS MINER OPERATOR HELPER - HA[employer]ERIAL[employer] WASTE TECHNICIAN Work Phone: [facility] Start: 12-20-2024 End: 12-20-2024 Patient encounter procedure Chandrika Castillo Alejandro CONTINUOUS MINER OPERATOR HELPER - HAZARD[employer] MATERIALS WASTE TECHNICIAN Work Phone: [facility] Comment on above: 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] (Primary Dx); Acute respiratory failure with hypoxia (HCC) [J96.01]; LRTI (lower respiratory tract infection) [J22] Start: 12-19-2024 End: 12-19-2024 ambulatory Chandrika HuongRomulo Allen CONTINUOUS MINER OPERATOR HELPER - HAZARD[employer] MATERIALS WASTE TECHNICIAN Work Phone: [facility] Start: 12-19-2024 End: 12-19-2024 Patient encounter procedure Chandrika HuongRomulo Allen CONTINUOUS MINER OPERATOR HELPER - [employer] WASTE TECHNICIAN Work Phone: [facility] Comment on above: 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] (Primary Dx); Acute respiratory failure with hypoxia (HCC) [J96.01]; LRTI (lower respiratory tract infection) [J22] Start: 12-18-2024 End: 12-18-2024 Patient encounter procedure Chandrika HuongRomulo Allen CONTINUOUS MINER OPERATOR HELPER - [employer]ARD[employer] WASTE TECHNICIAN Work Phone: [facility] Comment on above: Acute respiratory fa ilure with hypoxia (HCC) [J96.01] (Primary Dx); 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]; LRTI (lower respiratory tract infection) [J22] Start: 12-18-2024 End: 12-18-2024 ambulatory Chandrika Allen CONTINUOUS MINER OPERATOR HELPER - HAZARD[employer] MATERIALS WASTE TECHNICIAN Work Phone: [facility] Start: 12-15-2024 End: 12-15-2024 ambulatory Jefferson Nathan MD Work Phone: [facility] Start: 12-15-2024 End: 12-15-2024 Patient encounter procedure Jefferson Nathan MD Work Phone: [facility] Comment on above: Acute respiratory fa ilure with hypoxia (HCC) (Primary Dx); Tracheostomy dependence (HCC); RSV (acute bronchiolitis due to respiratory syncytial virus); Leg DVT (deep venous thromboembolism), acute, left (HCC); Nonrheumatic aortic valve stenosis Start: 12-14-2024 End: 12-14-2024 ambulatory Jefferson Nathan MD Work Phone: [facility] Comment on above: Acute respiratory fa ilure with hypoxia (HCC) (Primary Dx); Tracheostomy dependence (HCC); RSV (acute bronchiolitis due to respiratory syncytial virus); ESRD on hemodialysis (CMS/HCC) (HCC); Pulmonary embolism, other, unspecified chronicity, unspecified whether acute cor pulmonale present (HCC); Nonrheumatic aortic valve stenosis Start: 12-13-2024 End: 12-13-2024 ambulatory Jefferson Nathan MD Work Phone: [facility] Comment on above: Acute respiratory fa ilure with hypoxia (HCC) (Primary Dx); Tracheostomy dependence (HCC); RSV (acute bronchiolitis due to respiratory syncytial virus); Paroxysmal A-fib (CMS/HCC) (HCC); Nonrheumatic aortic valve stenosis Start: 12-12-2024 End: 12-12-2024 ambulatory Jefferson Nathan MD Work Phone: [facility] Comment on above: RSV (acute bronchiol itis due to respiratory syncytial virus) (Primary Dx); Tracheostomy dependence (HCC); Acute respiratory failure with hypoxia (HCC); Paroxysmal A-fib (CMS/HCC) (HCC); Peritonitis due to fungus (HCC) Start: 12-11-2024 End: 12-11-2024 ambulatory Jefferson Nathan MD Work Phone: [facility] Comment on above: RSV (acute [...] day surgery center Sydni Husain APRN - HAZARD[employer] MATERIALS WASTE TECHNICIAN Work Phone: [facility] [place] Comment on above: Acute respiratory fa ilure with hypoxia (HCC) (Primary Dx); Tracheostomy dependence (HCC); S/P AVR; Peritonitis due to fungus (HCC); ESRD on hemodialysis (CMS/HCC) (HCC); Ischemic ulcer of toe of left foot, 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); Anemia, unspecified type; History of abdominal surgery Start: 12-07-2024 End: 12-07-2024 ambulatory Sydni Husain APRN - [employer]ARD[employer]S WASTE TECHNICIAN Work Phone: [facility] [place] Start: 12-07-2024 End: 03-23-2025 [facility] hospital care/day 25 minutes Vincent Meek MD Work Phone: [facility] [place] Comment on above: Acute respiratory fa ilure with hypoxia (HCC) (Primary Dx); Ventilator dependent (HCC); Tracheostomy dependence (HCC); Pulmonary embolism, other, unspecified chronicity, unspecified whether acute cor pulmonale present (HCC); S/P AVR; ESRD on hemodialysis (CMS/HCC) (HCC) Start: 12-06-2024 End: 12-06-2024 Admission to same day surgery center Sydni Husain APRN - [employer]S WASTE TECHNICIAN Work Phone: [facility] [place] Comment on above: Acute respiratory fa ilure with hypoxia (HCC) (Primary Dx); Tracheostomy dependence (HCC); S/P AVR; Peritonitis due to fungus (HCC); ESRD on hemodialysis (CMS/HCC) (HCC); Ischemic ulcer of toe of left foot, 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); History of abdominal surgery Start: 12-06-2024 End: 12-06-2024 ambulatory Sydni Husain APRN - [employer]ARD[employer]S WASTE TECHNICIAN Work Phone: [facility] [place] Start: 12-06-2024 End: 03-23-2025 [facility] care/day 25 minutes Vincent Meek MD Work Phone: [facility] [place] Comment on above: Acute respiratory fa ilure with hypoxia (HCC) (Primary Dx); Ventilator dependent (HCC); Tracheostomy dependence (HCC); Pulmonary embolism, other, unspecified chronicity, unspecified whether acute cor pulmonale present (HCC); S/P AVR; ESRD on hemodialysis (CMS/HCC) (HCC) Start: 12-05-2024 End: 03-23-2025 [facility] hospital care/day 35 minutes Vincent Meek MD Work Phone: [facility] [place] Comment on above: Acute respiratory fa ilure with hypoxia (HCC) (Primary Dx); Tracheostomy dependence (HCC); Ventilator dependent (HCC); Pulmonary embolism, other, unspecified chronicity, unspecified whether acute cor pulmonale present (HCC); S/P AVR; ESRD on hemodialysis (CMS/HCC) (HCC) Start: 12-04-2024 End: 12-04-2024 Admission to same day surgery center Sydni Husain APRN [employer] Work Phone: [facility] [place] Comment on above: Acute respiratory fa ilure with hypoxia (HCC) (Primary Dx); Tracheostomy dependence (HCC); S/P AVR; Peritonitis due to fungus (HCC); ESRD on hemodialysis (CMS/HCC) (HCC); Ischemic ulcer of toe of left foot, 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); History of abdominal surgery Start: 12-04-2024 End: 12-04-2024 ambulatory Sydni Husain APRN - HAZARDOUS MATERIALS WASTE TECHNICIAN Work Phone: [facility] [place] Comment on above: Atypical atrial flut ter (HCC) (Primary Dx) Start: 12-01-2024 End: 12-01-2024 Admission to same day surgery center Sydni Husain APRN [employer] Work Phone: [facility] [place] Comment on above: Acute respiratory fa ilure with hypoxia (HCC) (Primary Dx); Tracheostomy dependence (HCC); S/P AVR; Peritonitis due to fungus (HCC); ESRD on hemodialysis (CMS/HCC) (HCC); Ischemic ulcer of toe of left foot, 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); Leg DVT (deep venous thromboembolism), acute, left (HCC); History of abdominal surgery Start: 12-01-2024 End: 12-01-2024 ambulatory Jefferson Nathan MD Work Phone: [facility] Comment on above: Atypical atrial flut ter (HCC) (Primary Dx) Start: 12-01-2024 End: 12-01-2024 Patient encounter procedure Jefferson Nathan MD Work Phone: [facility] Comment on above: Acute respiratory fa ilure with hypoxia (HCC) (Primary Dx); Tracheostomy dependence (HCC); Ventilator dependent (HCC); Pulmonary embolism, other, unspecified chronicity, unspecified whether acute cor pulmonale present (HCC); S/P AVR Start: 11-30-2024 End: 11-30-2024 Admission to same day surgery center Sydni Husain APRN - HAZARDOUS MATERIALS WASTE TECHNICIAN Work Phone: [facility] [place] Comment on above: Acute respiratory fa ilure with hypoxia (HCC) (Primary Dx); Tracheostomy dependence (HCC); S/P AVR; Peritonitis due to fungus (HCC); ESRD on hemodialysis (CMS/HCC) (HCC); Ischemic ulcer of toe of left foot, 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); Leg DVT (deep venous thromboembolism), acute, left (HCC); History of abdominal surgery Start: 11-30-2024 End: 11-30-2024 ambulatory Sydni Husain APRN - HAZARDOUS MATERIALS WASTE TECHNICIAN Work Phone: [facility] Infectious Disease - [place] Comment on above: Acute respiratory fa ilure with hypoxia (HCC) (Primary Dx); Tracheostomy dependence (HCC); Ventilator dependent (HCC); Pulmonary embolism, other, unspecified chronicity, unspecified whether acute cor pulmonale present (HCC); S/P AVR; Tracheostomy dependent (HCC); Chronic bronchitis, unspecified chronic bronchitis type (HCC); ESRD on hemodialysis (CMS/HCC) (HCC) Start: 11-29-2024 End: 11-30-2024 Admission to same day surgery center Sydni Husain APRN - HAZARDOUS MATERIALS WASTE TECHNICIAN Work Phone: [facility] Infectious Disease - [place] Comment on above: Peritonitis due to f ungus (HCC) (Primary Dx); History of abdominal surgery; S/P AVR; Ischemic ulcer of toe of left foot, 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); Leg DVT (deep venous thromboembolism), acute, left (HCC); Anemia, unspecified type Start: 11-29-2024 End: 11-30-2024 ambulatory Jefferson Nathan MD Work Phone: [facility] Pulmonary and Sleep Medicine [facility] Comment on above: Acute respiratory fa ilure with hypoxia (HCC) (Primary Dx); Atrial flutter, unspecified type (HCC); Pulmonary embolism, other, unspecified chronicity, unspecified whether acute cor pulmonale present (HCC); Ventilator dependent (HCC); Tracheostomy dependent (HCC); S/P AVR; Chronic bronchitis, unspecified chronic bronchitis type (HCC); ESRD on hemodialysis (CMS/HCC) (HCC) Start: 11-28-2024 End: 11-29-2024 Telephone encounter Jefferson Nathan MD Work Phone: [facility] Pulmonary and Sleep Medicine [facility] Comment on above: Advice Only Start: 10-22-2024 End: 10-22-2024 ambulatory [facility] Start: 10-21-2024 End: 10-25-2024 ambulatory [facility] Start: 10-16-2024 End: 10-16-2024 Telephone encounter Enid Dumont APRN - HAZARDOUS MATERIALS WASTE TECHNICIAN Work Phone: [facility] Gastroenterology - [place] Comment on above: Care Coordination Start: 10-13-2024 End: 10-13-2024 Telephone encounter Lan Carpenter PA-C Work Phone: [facility] Start: 10-12-2024 End: 10-12-2024 Evaluation and management of inpatient Vincent Wilson MD Work Phone: [facility] MAIN OR Start: 10-03-2024 End: 10-03-2024 Emergency department patient visit LEILANI TRONCOSO [facility] Start: 10-03-2024 End: 10-03-2024 Subsequent hospital visit by physician [facility] Exam Room [address] [facility] [address] Comment on above: Arrived Start: 10-03-2024 End: 11-28-2024 Evaluation and management of inpatient LUCIANO MONTEMAYOR [facility] Start: 08-28-2024 End: 08-28-2024 ambulatory DARYN LOOMIS [facility] Start: 08-28-2024 End: 08-28-2024 Office outpatient visit 25 minutes Jr Shah MD Work Phone: [facility] Cardiology - [place] Comment on above: Paroxysmal A-fib (CM S/HCC) (HCC) (Primary Dx); Nonrheumatic aortic valve stenosis; Tobacco abuse; Alcohol use disorder in remission Start: 05-10-2024 Chart abstracting Alan Barroso RN [facility] Comment on above: Dialysis status upda te Start: 04-12-2024 Telephone encounter [facility] Coordinators Work Phone: Trans[facility] Center Start: 02-12-2024 Telephone encounter Jr Shah MD Work Phone: [facility] Central Scheduling Comment on above: unable to contact pa tient unable to contact pa tient to schedule Start: 11-12-2023 End: 11-12-2023 Office outpatient visit 25 minutes Quiana Contreras CONTINUOUS MINER OPERATOR HELPER - HAZARDOUS MATERIALS WASTE TECHNICIAN Work Phone: [facility] Cardiology Comment on above: Nonrheumatic aortic valve stenosis (Primary Dx); Paroxysmal A-fib (CMS/HCC) (HCC); Primary hypertension; Calcification of abdominal aorta (HCC); Tobacco abuse; ESRD on hemodialysis (CMS/HCC) (HCC) Start: 10-14-2023 Telephone encounter Sasha weeks CONTINUOUS MINER OPERATOR HELPER - HAZARDOUS MATERIALS WASTE TECHNICIAN Work Phone: [facility] Cardiology Comment on above: Cancelled Appointmen t Start: 09-07-2023 Transcribe Orders Fransisco toro CONTINUOUS MINER OPERATOR HELPER Work Phone: [facility] Central Scheduling Comment on above: Personal history of nicotine dependence (Primary Dx); Nicotine dependence, cigarettes, uncomplicated Start: 08-18-2023 Telephone encounter Quiana forman CONTINUOUS MINER OPERATOR HELPER - HAZARDOUS MATERIALS WASTE TECHNICIAN Work Phone: [facility] Cardiology Start: 08-16-2023 End: 08-17-2023 Evaluation and management of inpatient Dangelo Horne DO Work Phone: [facility] Comment on above: New onset a-fib (CMS /HCC) (HCC) (Primary Dx); Atrial fibrillation, persistent (HCC) Start: 05-01-2023 End: 05-01-2023 Emergency department patient visit Jese Frank MD Work Phone: [facility] ED Comment on above: Skin sore (Primary D x); ESRD (end stage renal disease) on dialysis (HCC) Start: 12-30-2021 Telephone encounter Giovani mckee MD Work Phone: [facility] [place] Comment on above: Procedure please advise Start: 12-29-2021 ambulatory Ruyd Painter MD Work Phone: Ambulatory Surgery Start: 12-29-2021 Telephone encounter Cecilia galo PA-C Work Phone: [facility] [place] Comment on above: cecilia carlson Start: 12-25-2021 End: 12-25-2021 Patient encounter procedure Rudy Painter MD Work Phone: [facility] [place] Comment on above: Acute blood loss ane ruth (Primary Dx); Rectal bleeding Start: 09-15-2021 End: 09-15-2021 Subsequent hospital visit by physician Cindy Patel MD Work Phone: [facility] Cath & IR Lab Start: 10-17-2020 End: 10-17-2020 Subsequent hospital visit by physician Cindy Patel Work Phone: [facility] Cindy Dept Start: 03-13-2020 End: 03-13-2020 Subsequent hospital visit by physician Lab [place] Acc LAB EKG [facility] Comment on above: Preoperative testing [Z01.818] Start: 10-19-2019 End: 10-27-2019 Evaluation and management of inpatient Callie Nieves DO Work Phone: [facility] Comment on above: Acute kidney injury (HCC) (Primary Dx); Uncontrolled hypertension; Normocytic anemia; Angioedema, initial encounter; Hyperkalemia; Metabolic acidosis; Rectal bleeding Procedures Date Procedure Procedure Detail Performing Clinician Start: 04-17-2025 Comprehensive metabo lic panel Keiry Solares MD Work Phone: Start: 04-09-2025 Radex hand minimum 3 views [employer] PA-C Work Phone: Start: 04-09-2025 Basic metabolic pane l calcium total [employer] PA-C Work Phone: Start: 04-05-2025 Assay of troponin quantitative Barbara [employer] Levy PA-C Work Phone: Start: 04-05-2025 Radiologic exam ches t 2 views Barbara Taryn Levy PA-C Work Phone: Start: 04-05-2025 Basic metabolic pane l calcium total Barbara [employer] Levy PA-C Work Phone: Start: 04-05-2025 Ecg [...] Work Phone: Start: 03-18-2025 Comprehensive metabo lic vee Dawkins MD Work Phone: Start: 03-17-2025 Thromboplastin time partial plasma/whole blood Barb Dawkins MD Work Phone: Start: 03-17-2025 Thromboplastin time partial plasma/whole blood Barb Dawkins MD Work Phone: Start: 03-17-2025 Comprehensive metabo lic vee Dawkins MD Work Phone: Start: 03-16-2025 Comprehensive metabo lic panel Barb Dawkins MD Work Phone: Start: 03-15-2025 Non-invasive physiol ogic study extremity 3 godfrey Sanon MD Work Phone: Start: 03-15-2025 Comprehensive [...] 02-26-2025 Assay of troponin quantitative Rudolph J Ferd DO Work Phone: Start: 02-25-2025 Prothrombin time [...] panel Bettye Pierre MD Work Phone: Start: 05-28-2025 Respiratory pathogen s DNA and RNA panel - Nasopharynx by EMMANUEL with non-probe detection Elly Jett MD Work Phone: Start: 02-21-2025 Antibody screen JYOTI DAWKINS Comment on above: Performed By: #### L [id number] ####Assisted Living Home Director: DOMENICA JARA ([phone])[facility] ([facility])[address] [place] [address] Start: 02-21-2025 C-reactive protein Karena Jett MD [...] Start: 01-28-2025 Blood count complete automated Yifan Riccirison DO Work Phone: Start: 01-27-2025 Thromboplastin time [...] time Linda Owens MD Work Phone: Start: 8 End: 01-24-2025 [place] flexible w/control bleeding any [...] Blood count complete automated Crystal D. Meranto CONTINUOUS MINER OPERATOR HELPER - HAZARDOUS MATERIALS WASTE TECHNICIAN Work Phone: Start: 01-21-2025 Glucose quantitative blood [...] c ntrst mtrl w/wo cntrst img Japheth Eitamaegharjit Chriselias DO Work Phone: Start: 01-20-2025 Blood count [...] History of abd ominal surgery Sydni Husain CONTINUOUS MINER OPERATOR HELPER - HAZARDOUS MATERIALS WASTE TECHNICIAN Work Phone: Start: 10-12-2024 Insj non-tunneled ce ntral venous cath age 5 yr/> Rudolph German VENEER TAPER Start: 10-12-2024 DE AN CENTRAL LINE T RIPLE LUMEN Rudolph German VENEER TAPER Start: 10-12-2024 DE AN ELECTIVE ENDOTRACHEAL AIRWAY Rudolph German VENEER TAPER Start: 10-12-2024 Us vasc access sits vsl patency ndl entry Rudolph German VENEER TAPER Start: 10-12-2024 ANESTHESIA ARTERIAL LINE PLACEMENT Rudolph German VENEER TAPER Start: 10-03-2024 Ct head/brain w/o contrast material [...] vaccination due to patient refusal Sasha Vesta LOZA - HAZARDOUS MATERIALS WASTE TECHNICIAN Work Phone: Start: 08-17-2023 Echo tthrc r-t 2d w/wom-mode compl spec&colr d Earlene Irving MD Work Phone: Start: 08-17-2023 Thyrotropin [Units/volume] in Serum or Plasma Lan JO-C Work Phone: Start: 08-17-2023 Basic metabolic pane l calcium total Earlene Irving MD Work Phone: Start: 08-16-2023 End: 08-16-2023 Basic metabolic panel calcium total Sha Granados PA-C Work Phone: Start: 08-16-2023 Radiologic exam ches t single view Sha Granados PA-C Work Phone: Start: 08-16-2023 Ecg routine ecg w/le ast 12 lds i&r only Dangelo Horne DO Work Phone: Start: 10-17-2020 Special treatments a nd procedures Cindy Patel Work Phone: Start: 03-13-2020 Ecg routine ecg w/le ast 12 lds trcg only w/o i&r [place] Provider Start: 03-13-2020 BASIC METABOLIC PNL Tati farooq (Acting Manager Security Operations Specialist) Zachary Work Phone: Start: 03-13-2020 CBC Darya (A prn Security Operations Specialist) Zachary Work Phone: Start: 03-13-2020 MDRD GFR Darya (A prn Security Operations Specialist) [place]ary Work Phone: Start: 03-13-2020 PROTHROMBIN TIME/PT Tati farooq (Acting Manager Security Operations Specialist) Zachary Work Phone: Start: 10-27-2019 Basic [...] Basic metabolic panel calcium total Delon Jessica CONTINUOUS MINER OPERATOR HELPER - HAZARDOUS MATERIALS WASTE TECHNICIAN Work Phone: Start: 10-22-2019 GLOMERULAR BASEMENT MEMBRANE (GBM) ANTIBODY IGG Randolph Liz MD Work Phone: Start: 10-21-2019 Radiologic exam abdo men 1 view Brett Encarnacion MD Work Phone: Start: 10-21-2019 End: 10-21-2019 Dup-scan artl shayan abdl/pel/scrot&/rpr orgn com Brett Encarnacion MD Work Phone: Start: 10-21-2019 Basic metabolic pane l calcium total Delon Jessica CONTINUOUS MINER OPERATOR HELPER - HAZARDOUS MATERIALS WASTE TECHNICIAN Work Phone: Start: 10-20-2019 Basic metabolic pane l calcium total Brett Encarnacion MD Work Phone: Start: 10-20-2019 TRANSFUSE RED BLOOD CELLS Delon Jessica CONTINUOUS MINER OPERATOR HELPER - HAZARDOUS MATERIALS WASTE TECHNICIAN Work Phone: Start: 10-20-2019 TRANSFUSE RED BLOOD CELLS Delon Jessica CONTINUOUS MINER OPERATOR HELPER - HAZARDOUS MATERIALS WASTE TECHNICIAN Work Phone: Start: 10-20-2019 Blood count hemoglobin Delon Jessica CONTINUOUS MINER OPERATOR HELPER - HAZARDOUS MATERIALS WASTE TECHNICIAN Work Phone: Start: 10-20-2019 Basic metabolic pane l calcium total Delon Jessica CONTINUOUS MINER OPERATOR HELPER - HAZARDOUS MATERIALS WASTE TECHNICIAN Work Phone: Start: 10-20-2019 RBC morphology findi ng Nom (Bld) Delon Jessica CONTINUOUS MINER OPERATOR HELPER - HAZARDOUS MATERIALS WASTE TECHNICIAN Work Phone: Start: 10-19-2019 Basic metabolic pane [...] Comment on above: Test Performed by [facility], [address] [place] [address] Str. [place], [place] [address] Start: 10-19-2019 End: 10-19-2019 ADD ON LAB [...] History of abdom inal surgery Sydni Husain CONTINUOUS MINER OPERATOR HELPER - HAZARDOUS MATERIALS WASTE TECHNICIAN Work Phone: H/O: surgery History of abdom inal surgery Sydni Husain CONTINUOUS MINER OPERATOR HELPER - HAZARDOUS MATERIALS WASTE TECHNICIAN Work Phone: H/O: surgery History of abdom inal surgery Sydni Husain CONTINUOUS MINER OPERATOR HELPER - HAZARDOUS MATERIALS WASTE TECHNICIAN Work Phone: H/O: surgery History of abdom inal surgery Sydni Husain CONTINUOUS MINER OPERATOR HELPER - HAZARDOUS MATERIALS WASTE TECHNICIAN Work Phone: H/O: surgery History of abdom inal surgery Sydni Husain CONTINUOUS MINER OPERATOR HELPER - HAZARDOUS MATERIALS WASTE TECHNICIAN Work Phone: H/O: surgery History of abdom inal surgery Sydni Husain CONTINUOUS MINER OPERATOR HELPER - HAZARDOUS MATERIALS WASTE TECHNICIAN Work Phone: Vaccine refused by patient Missed vaccination due to patient refusal Palak You Cuca FLORES Work Phone: Plan of Treatment Date Care Activity Detail Author Start: 2040 RSV Immunization for Adults (1 - 1-dose 75+ series) RSV Immunization for Adults (1 - 1-dose 75+ series) [facility] [employer] Start: 2040 [facility] Start: 01-24-2035 Screening for malignant neoplasm of colon [facility] [employer] Start: 03-14-2030 Lipid panel Lipid Panel [facility] [employer] Start: 04-17-2026 Creatinine measurement Creatinine Level [facility] [employer] Start: 04-17-2026 Potassium measurement Potassium Level [facility] Start: 04-12-2026 Screening for malignant neoplasm of lung Lung Cancer Screening [facility] Start: 04-09-2026 Creatinine measurement Creatinine Level [facility] Start: 04-09-2026 Potassium measurement Potassium Level [facility] Start: 04-05-2026 Creatinine measurement Creatinine Level [facility] Start: 04-05-2026 Potassium measurement Potassium Level [facility] Start: 03-21-2026 Creatinine measurement Creatinine Level [facility] Start: 03-21-2026 Potassium measurement Potassium Level [facility] Start: 03-13-2026 Screening for malignant neoplasm of lung Lung Cancer Screening [facility] [employer] Start: 03-05-2026 Creatinine measurement [facility] Start: 03-05-2026 Potassium measurement [facility] Start: 02-23-2026 Creatinine measurement Creatinine Level [facility] Start: 02-23-2026 Echocardiography Echocardiogram [facility] Start: 02-23-2026 Potassium measurement Potassium Level [facility] Start: 02-23-2026 [facility] Start: 02-12-2026 Creatinine measurement Creatinine Level [facility] Start: 02-12-2026 Potassium measurement Pot[facility] Level [facility] Start: 01-05-2026 Potassium measurement Potassium Level [facility] Start: 01-01-2026 Creatinine measurement Creatinine Level [facility] Start: 01-01-2026 Potassium measurement Potassium Level [facility] Start: 12-30-2025 Creatinine measurement Creatinine Level [facility] Start: 12-30-2025 Potassium measurement [facility] Start: 12-25-2025 Creatinine measurement Creatinine Level [facility] Start: 12-25-2025 Potassium measurement Potassium Level [facility] Start: 12-22-2025 Creatinine measurement Creatinine Level [facility] Start: 12-22-2025 Potassium measurement Potassium Level [facility] Start: 12-18-2025 Creatinine measurement Creatinine Level [facility] Start: 12-18-2025 Potassium measurement Potassium Level [facility] Start: 12-15-2025 Creatinine measurement Creatinine Level [facility] Start: 12-15-2025 Potassium measurement Potassium Level [facility] Start: 12-11-2025 Creatinine measurement [facility] Start: 12-11-2025 Potassium measurement Pot[facility] Start: 12-04-2025 Creatinine measurement Creatinine Level [facility] Start: 12-04-2025 Potassium measurement Potassium Level [facility] Start: 12-01-2025 Creatinine measurement Creatinine Level [facility] Start: 12-01-2025 Potassium measurement Potassium Level [facility] Start: 11-30-2025 Creatinine measurement Creatinine Level [facility] Start: 11-30-2025 Potassium measurement Potassium Level [facility] Start: 11-29-2025 Creatinine measurement Creatinine Level [facility] Start: 11-29-2025 Potassium measurement Potassium Level [facility] Start: 11-24-2025 Echocardiography Echocardiogram [facility] Start: 11-24-2025 [facility] Start: 2025 RSV Immunization aged 60 or older (1 - 1-dose 60+ series) RSV Immunization aged 60 or older (1 - 1-dose 60+ series) [facility] Start: 11-03-2025 Creatinine measurement Creatinine Level [facility] Start: 11-03-2025 Potassium measurement Potassium Level [facility] Start: 11-02-2025 Echocardiography Echocardiogram [facility] Start: 10-11-2025 Screening for malignant neoplasm of lung [facility] Start: 05-28-2025 Influenza vaccination [facility] Start: 05-28-2025 [facility] Start: 04-26-2025 End: 04-26-2025 Patient encounter procedure 04/26/2025 9:20 AM EDT Office Visit [facility] [place] [address] [place] [address] Yasemin Lucas, CONTINUOUS MINER OPERATOR HELPER - HAZARDOUS MATERIALS WASTE TECHNICIAN [address] [place] [address] [facility] [place] Start: 04-12-2025 End: 04-12-2025 Patient encounter procedure [facility] Start: 04-05-2025 End: 04-05-2025 ambulatory [facility] Start: 04-05-2025 End: 04-05-2025 Patient encounter procedure 04/05/2025 1:00 PM EDT Office Visit [facility] [address] [place] [phone] Sophia Lara, CONTINUOUS MINER OPERATOR HELPER - HAZARDOUS MATERIALS WASTE TECHNICIAN [address] [place] [address] [facility] Neuroscience [place] Start: 04-03-2025 End: 04-03-2025 ambulatory [facility] [place] Start: 04-03-2025 End: 04-03-2025 Patient encounter procedure 04/03/2025 10:45 AM EDT Office Visit [facility] - [place] [address] [address] [place] [phone] Zoe Valadez, CONTINUOUS MINER OPERATOR HELPER - HAZARDOUS MATERIALS WASTE TECHNICIAN [address] [facility] [place] [phone] [facility] - [place] Start: 03-26-2025 End: 02-23-2026 CT Chest WO contrast CT chest wo IV contrast Imaging Routine Hemoptysis Expected: 03/26/2025, Expires: 02/23/2026 [facility] Work Phone: Comment on above: Expected: 03/26/2025, Expires: Start: 02-15-2025 End: 02-15-2025 ambulatory [facility] Start: 02-15-2025 End: 02-15-2025 Patient encounter procedure [facility] Start: 02-14-2025 End: 02-14-2025 ambulatory [facility] Infectious Disease [facility] Start: 02-14-2025 End: 02-14-2025 Patient encounter procedure [facility] Start: 12-25-2024 End: 12-25-2024 Patient encounter procedure 12/25/2024 10:00 AM EDT Office Visit [facility] [address] [place] [address] Sophia Lara, CONTINUOUS MINER OPERATOR HELPER - HAZARDOUS MATERIALS WASTE TECHNICIAN [address] [place] [address] [facility] Start: 12-18-2024 End: 12-18-2024 Telemedicine consultation with patient 12/18/2024 1:00 PM EDT Telemedicine [facility] Cardiovascular Thoracic Surgery - [place] [address] [place] [phone] Osiris Terrell, CONTINUOUS MINER OPERATOR HELPER - HAZARDOUS MATERIALS WASTE TECHNICIAN [address] [place] [address] [facility] Cardiovascular Thoracic Surgery - [place] Start: 10-09-2024 End: 10-09-2024 Patient encounter procedure 10/09/2024 3:00 PM EST Appointment [facility] Stress [address] [facility] [address] [place] [phone] Jr Shah MD [address] [facility] [address] [place] [address] [facility] Start: 09-27-2024 Medicare Advantage Annual Wellness Visit Medicare Advantage Annual Wellness Visit [facility] Start: 09-27-2024 [facility] Start: 09-13-2024 End: 09-13-2024 Patient encounter procedure 09/13/2024 3:00 PM EST Appointment [facility] [address] [facility] [address] [place] [phone] Jr Shah MD [address] [facility] [address] [place], [place] [id number] [facility] Start: 09-11-2024 End: 08-28-2026 Heart Transthoracic Transthoracic echocardiogram (TTE) complete with contrast, bubble, strain, and 3D PRN CV Echocardiography Routine Nonrheumatic aortic valve stenosis Expected: 09/11/2024 (Approximate), Expires: 08/28/2026 [facility] [employer] [facility] Work Phone: Comment on above: Expected: 09/11/2024 (Approximate), Expi res: 08/28/2026 Start: 08-17-2024 Thyroid stimulating hormone measurement TSH Level [facility] [employer] Start: 05-28-2024 COVID-19 Vaccine ( season) COVID-19 Vaccine ( season) [facility] [employer] Start: 05-28-2024 Influenza vaccination [facility] [employer] Start: 05-28-2024 [facility] [employer] Start: 02-07-2024 End: 02-07-2024 Patient encounter procedure [facility] Start: 11-29-2023 End: 11-29-2023 Patient encounter procedure 11/29/2023 3:00 PM EST Appointment [facility] [address] [place] [address] Fransisco Pineda, CONTINUOUS MINER OPERATOR HELPER [address] [place] [address] [facility] Start: 11-24-2023 End: 11-24-2023 Patient encounter procedure 11/24/2023 1:30 PM EST Office Visit [facility] Dermatology [address] [facility] [address] [place] [phone] Madhuri De La Rosa MD [address] [facility] [place] [id number] [facility] Dermatology Start: 09-27-2023 Behavioral Health Screening Behavioral Health Screening [facility] Start: 09-27-2023 Medicare Advantage Annual Wellness Visit Medicare Advantage Annual Wellness Visit [facility] Start: 09-07-2023 End: 09-07-2024 CT Chest for screening WO contrast CT lung screening low dose Imaging Routine Nicotine dependence, cigarettes, uncomplicated Personal history of nicotine dependence Expected: 09/07/2023, Expires: 09/07/2024 [facility] [employer] [facility] Work Phone: Comment on above: Expected: 09/07/2023, Expires: Start: 05-28-2023 COVID-19 Vaccine ( season) COVID-19 Vaccine ( season) [facility] Start: 05-28-2023 Influenza vaccination Influenza Vaccine (#1) [facility] Start: 05-10-2023 DIABETES SCREEN DIABETES SCREEN [facility] Start: 05-10-2023 Diabetes Screening Diabetes Screening [facility] Start: 03-13-2023 DIABETES SCREEN DIABETES SCREEN [facility] Start: 05-28-2022 Influenza vaccination INFLUENZA (Season Ended) [facility] Start: 10-22-2021 End: 10-22-2021 Patient encounter procedure 10/22/2021 Office Visit Dermatology Madhuri De La Rosa MD 1 [facility] [place] [id number] D[facility] Start: 05-28-2021 Influenza vaccination [facility] Start: 05-20-2021 Hepatitis B Vaccines (1 of 1 - Risk Dialysis 4-dose series) Hepatitis B Vaccines (1 of 1 - Risk Dialysis 4-dose series) [facility] Start: 05-20-2021 [facility] Start: 05-10-2021 HEMOGLOBIN/HEMATOCRIT HEMOGLOBIN/HEMATOCRIT [facility] Start: 05-10-2021 SERUM CREATININE SERUM CREATININE [facility] Start: 12-08-2020 Annual Wellness Visit (AWV) Annual Wellness Visit (AWV) [facility] Start: 2020 PROSTATE CANCER SCREENING DISCUSSION PROSTATE CANCER SCREENING DISCUSSION [facility] Start: 2020 Prostate specific antigen measurement Prostate Cancer Screening Discussion [facility] Start: 11-12-2020 End: 11-12-2020 Office Visit 11/12/2020 Office Visit Dermatology Madhuri De La Rosa MD 1 [facility], [address] [place] [address] [phone] D[facility] Start: 10-19-2020 Screening for malignant neoplasm of colon [facility] Start: 05-28-2020 Influenza vaccination [facility] Start: 05-28-2019 Influenza vaccination Flu vaccine (#1) [facility] Work Phone: Start: 2015 Screening for malignant neoplasm of colon Colon cancer screen colonoscopy [place], [place] Start: 2015 Shingles Vaccine (1 of 2) Shingles Vaccine (1 of 2) [facility] Start: 2015 SHINGRIX VACCINE (1 of 2) SHINGRIX VACCINE (1 of 2) [facility] Start: 2015 Tuberculosis screening COLORECTAL CANCER SCREENING,SEE MODIFIER [facility] Start: 2015 Zoster Vaccines (1 of 2) Zoster Vaccines (1 of 2) [facility] Start: 2015 [facility] Start: 2010 COLOGUARD (FIT-DNA) COLOGUARD (FIT-DNA) [facility] Start: 2010 Colonoscopy COLONOSCOPY [facility] Start: 2010 COLORECTAL CANCER SCREENING COLORECTAL CANCER SCREENING [facility] Start: [address] COLONOGRAPHY [facility] Start: 2010 FECAL OCCULT BLOOD FECAL OCCULT BLOOD [facility] Start: 2010 Screening for malignant neoplasm of colon [facility] Start: 2010 SIGMOIDOSCOPY SIGMOIDOSCOPY [facility] Start: 2005 Diabetes screen Diabetes screen [facility] [place] Start: 2005 Lipid panel Lipid screen [facility] Start: 2000 Diabetes screen Diabetes screen [facility] Start: 2000 Lipid panel Lipid Screening [facility] Start: 2000 LIPID SCREEN LIPID SCREEN [facility] Start: 1984 DTaP/Tdap/Td vaccine (1 - Tdap) DTaP/Tdap/Td vaccine (1 - Tdap) [facility] Start: 1984 DTaP/Tdap/Td Vaccines (1 - Tdap) DTaP/Tdap/Td Vaccines (1 - Tdap) [facility] Start: 1984 Pneumococcal Vaccine: 50+ Years (1 of 2 - PCV) Pneumococcal Vaccine: 50+ Years (1 of 2 - PCV) [facility] Start: 1984 Urine microalbumin profile [facility] Start: 1984 [facility] Start: 1983 ANNUAL PCP TEAM CHRONIC DISEASE VISIT ANNUAL PCP TEAM CHRONIC DISEASE VISIT [facility] Start: 1983 Anxiety Screening Anxiety Screening [facility] Start: 1983 Depression Screening Depression Screening [facility] Start: 1983 Diabetes mellitus screening [facility] Start: 1983 HEPATITIS C SCREENING HEPATITIS C SCREENING [facility] Start: 1983 HIV SCREENING HIV SCREENING [facility] Start: 1983 HIV screening HIV Screening [facility] Start: 1977 Adult depression screening assessment DEPRESSION SCREENING [facility] Start: 1977 [facility] Start: 1971 Pneumococcal 0-64 years Vaccine (1 of 1 - PPSV23) Pneumococcal 0-64 years Vaccine (1 of 1 - PPSV23) [facility]: 1971 Pneumococcal 0-64 years Vaccine (1 of 2 - PPSV23) Pneumococcal 0-64 years Vaccine (1 of 2 - PPSV23) [facility] Start: 1971 Pneumococcal vaccination Pneumococcal Vaccine (1 of 2 - PCV) [facility] Start: 1971 Pneumococcal Vaccine: Pediatrics (0 to 5 Years) and At-Risk Patients (6 to 64 Years) (1 - PCV) Pneumococcal Vaccine: Pediatrics (0 to 5 Years) and At-Risk Patients (6 to 64 Years) (1 - PCV) [facility] Start: 1971 Pneumococcal Vaccine: Pediatrics (0 to 5 Years) and At-Risk Patients (6 to 64 Years) (1 of 2 - PCV) Pneumococcal Vaccine: Pediatrics (0 to 5 Years) and At-Risk Patients (6 to 64 Years) (1 of 2 - PCV) [facility] Start: 1970 COVID-19 Vaccine (1) COVID-19 Vaccine (1) [facility] Start: 1966 MMR Vaccines (1 of 1 - Standard series) MMR Vaccines (1 of 1 - Standard series) [facility] Start: 1966 [facility] Start: 05-17-1966 COVID-19 Vaccine (#1) COVID-19 Vaccine (#1) [facility] Start: 05-17-1966 Examination of skin Derm Melanoma Skin Check [facility] Start: 1965 Lipid panel [facility] Start: 1965 Medicare Advantage Annual Wellness Visit (AWV) Medicare Advantage Annual Wellness Visit (AWV) [facility] Start: 1965 Screening for malignant neoplasm of colon [facility] [employer] Basic metabolic 2000 panel - Serum or Plasma Basic Metabolic Panel Lab Routine Daily until discontinued starting 10/23/2019, 5 completed [employer] Work Phone: Comment on above: Daily until discontinued starting 2019, 5 completed CBC W Auto Different ial panel - Blood CBC Auto Differential Lab Routine Daily until discontinued starting 10/23/2019, 5 completed [employer] Work Phone: Comment on above: Daily until discontinued starting 2019, 5 completed End: 12-25-2022 COLONOSCOPY DIAGNOSTIC COLONOSCOPY DIAGNOSTIC Endoscopy Routine Acute blood loss anemia Rectal bleeding 1 Occurrences starting 12/25/2021 until 12/25/2022 [facility] Work Phone: Comment on above: 1 Occurrences starting 12/25/2021 until 12/25/2022 End: 12-30-2022 COLONOSCOPY DIAGNOSTIC COLONOSCOPY DIAGNOSTIC Endoscopy Routine Other iron deficiency anemia Rectal bleeding 1 Occurrences starting 12/30/2021 until 12/30/2022 [facility] Work Phone: Comment on above: 1 Occurrences starting 12/30/2021 until 12/30/2022 End: 04-12-2025 CT Chest WO contrast [employer] Work Phone: Comment on above: Once for 1 Occurrences starting 04/12/20 until 04/12/2025 Electrocardiogram EKG BIC 2019 3:36 PM EDT [facility] End: 01-22-2025 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 [employer] Work Phone: End: 10-19-2019 Hemodialysis inpatient Hemodialysis inpatient Dialysis Routine One Time for 1 Occurrences starting 10/19/2019 until 10/19/2019 [employer] Work Phone: Comment on above: One Time for 1 Occurrences starting 09/28 until 10/19/2019 End: 10-21-2019 Hemodialysis inpatient Hemodialysis inpatient Dialysis Routine One Time for 1 Occurrences starting 10/21/2019 until 10/21/2019 [employer] Work Phone: Comment on above: One Time for 1 Occurrences starting 09/28 until 10/21/2019 End: 10-23-2019 Hemodialysis inpatient Hemodialysis inpatient Dialysis Routine One Time for 1 Occurrences starting 10/23/2019 until 10/23/2019 [employer] Work Phone: Comment on above: One Time for 1 Occurrences starting 09/28 until 10/23/2019 Hemodialysis inpatient Hemodialy sis inpatient Dialysis Routine Every MWF until discontinued starting 10/27/2019 [employer] Work Phone: Comment on above: Every MWF until discontinued starting End: 01-26-2025 Hemoglobin [Mass/volume] in Blood [employer] Work Phone: End: 02-21-2025 Legionella and Streptococcus Urine Antigen [employer] Work Phone: Magnesium [Mass/volu me] in Serum or Plasma MAGNESIUM Lab Routine Daily until discontinued starting 10/23/2019, 5 completed [employer] Work Phone: Comment on above: Daily until discontinued starting 2019, 5 completed End: 01-22-2025 Peripheral blood smear [facility] End: 01-22-2025 Peripheral Blood Smear [facility] Peripheral blood smear [facility] [employer] Peripheral Blood Smear [facility] [employer] Phosphate [Mass/volu me] in Serum or Plasma Phosphorus Lab Routine Daily until discontinued starting 10/23/2019, 5 completed [facility] Work Phone: Comment on above: Daily until discontinued starting 2019, 5 completed End: 09-15-2021 Special treatments and procedures [facility] Work Phone: Comment on above: Once for 1 Occurrences starting 09/15/20 until 09/15/2021 End: 10-26-2019 Surgical Pathology Surgical Pathology Lab STAT Once for 1 Occurrences starting 10/26/2019 until 10/26/2019 [employer] Work Phone: Comment on above: Once for 1 Occurrences starting 10/26/19 until 10/26/2019 Surgical Pathology Surgical Path ology Lab STAT 10/26/2019 10:00 AM EST [employer] Work Phone: End: 02-21-2025 Urine Hold Cup [facility] [employer] [facility] Immunizations Immunization Date Immunization Notes Care Provider [facility] 05-20-2020 hepatitis B vaccine, unspecified formulation Jese Frank MD Work Phone: [facility] [employer] 01-19-2020 hepatitis B vaccine, unspecified formulation Jese Frank MD Work Phone: [facility] [employer] 12-19-2019 hepatitis B vaccine, unspecified formulation Jese Frank MD Work Phone: [facility] [employer] 11-15-2019 hepatitis B vaccine, unspecified formulation Jese Frank MD Work Phone: [facility] [employer] Payers Date Payer Category Payer Self-pay 2023 Medicare HMO [id number] 2023 Medicare [id number] 2022 Medicaid HMO [id number] 2022 Medicaid [id number] 2020 Medicaid [id number] 2020 Medicare [id number] 2020 Medicare [id number] 2020 Unknown [id number] 2020 Medicaid MEDICAID [facility] MEDICAID [id number] 2020-Present Medicaid [id number] 2019 Medicare MEDICARE MEDICAR E A AND B [id number] 2019-Present [place], [place] Medicare [id number] Unknown [id number] Unknown [id number] Unknown [id number] Unknown [id number] Unknown [id number] Unknown [id number] Unknown [id number] Unknown [id number] Unknown [id number] Unknown [id number] Unknown [id number] Unknown [id number] Unknown [id number] Unknown [id number] Unknown [id number] Unknown [id number] Unknown [id number] Social History Date Type Detail Facility Start: 1993 End: 03-15-2025 Tobacco smoking status MT[facility] Start: 1993 History of tobacco use Cigarette Smoker [employer] Work Phone: Start: 03-13-2020 End: 03-13-2025 Cigarettes smoked current (pack per day) - Reported [employer] Work Phone: Start: 03-13-2020 End: 03-15-2025 Tobacco use and exposure Never used [facility] Start: 03-13-2020 End: 08-16-2023 Alcohol intake Current drinker of alcohol (finding) [employer] Work Phone: Start: 1965 Sex Assigned At Not on file [facility] Work Phone: Start: 12-15-2021 End: 05-01-2023 Exposure to SARS-CoV-2 (event) Not sure [facility] Start: 10-19-2019 Alcohol Comment on weekends [employer] Work Phone: Start: 12-25-2021 End: 04-17-2025 Alcohol intake Ex-drinker (finding) [facility] Start: 1965 Sex Assigned At Male [facility] Start: 05-01-2023 End: 03-13-2025 Alcohol Use Disorder Identification Test - Consumption [AUDIT-C] [facility] How often to you hav e a drink containing alcohol? Never [facility] How many standard dr inks containing alcohol do you have on a typical day? Patient does not drink [facility] Start: 11-15-2020 Gender identity Identifies as male gender (finding) [facility] Start: 08-10-2020 Sexual orientation Heterosexual (finding) [facility] Start: 04-27-2022 Sex Male (finding) [facility] History of tobacco use Passive smoker [facility] Start: 10-13-2024 Tobacco Comment Started at 28, 3 PPD, tapered down to 1 PPD in 2020 after quitting drinking. 10/27/24 [facility] Tobacco smoking stat us [facility] Unknown if ever smoked [facility] Work Phone: Start: 02-20-2025 Tobacco smoking status NHIS Ex-smoker [facility] Start: 1993 History of tobacco use Current smoker [facility] How often do you nee d to have someone help you when you read instructions, pamphlets, or other written material from your doctor or pharmacy [SILS] Sometimes [facility] Has the [employer], or [employer] threatened to shut off services in your home in past 12Mo No [facility] Do you feel stress - tense, restless, nervous, or anxious, or unable to sleep at night because your mind is troubled all the time - these days [OSQ] To some extent [facility] (I/We) worried wheth er (my/our) food would run out before (I/we) got money to buy more. Never true [facility] Medical Equipment Procedure Code Equipment Code Equipment Origin al Text Equipment Identifier Dates [id number] Start: 10-12-2024 [id number] Start: 10-09-2024 [id number] Start: 10-14-2024 [id number] Start: 10-14-2024 [id number] Start: 10-14-2024 [id number] Start: 10-14-2024 [id number] Start: 10-14-2024 [id number] Start: 10-14-2024 [id number] Start: 10-14-2024 [id number] Start: 11-03-2024 [id number] Start: 01-30-2025 Functional Status Date Assessment Result Facility 03-13-2025 Total score [AUDIT-C] 0 03/13/20 8:25 AM EDT Karo Pérez RN [facility] Clinical Notes 10-24-2019 to 04-25-2025 Telephone Encounter - Claudia Westr - 04/25/2025 5:17 PM EDTTelephone Encounter - Claudia English Nahid - 04/25/2025 5:17 PM EDTCblack Granado RN - 04/17/2025 1:25 PM EDTDischarge InstructionsAttachments Note Date & Type Note Facility 04-25-2025 Telephone encount er Note Name of caller: Sabino Contact phone number: [phone] Relationship to Patient: [facility] Provider: Shayy Practice: [facility] Chief Complaint/Reason for Call: Sabino calling to reschedule appointment 04/26/25. Please advise Sabino. Best time of day caller can be reached: any Patient advised that office/PCP has 24-48 business hours to return their call: Yes [facility] 04-25-2025 Miscellaneous Notes Formattin g of this note might be different from the original. Name of caller: Sabino Contact phone number: [phone] Relationship to Patient: [facility] Provider: Serzulma Practice: [facility] Chief Complaint/Reason for Call: Sabino calling to reschedule appointment 04/26/25. Please advise Sabino. Best time of day caller can be reached: any Patient advised that office/PCP has 24-48 business hours to return their call: Yes documented in this encounter [facility] 04-17-2025 Emergency department Note Report called to [facility]. [facility] 04-17-2025 Emergency department Note Report called to [facility]. PIV placed, blood collected for lab work, pt states it hurts and he does not want an PIV left in, If I leave it he will rip it out. PIV Dc'd documented in this encounter [facility] 04-17-2025 Hospital Discharg e instructions Keiry [...] Do When Your INR Is Too High (Tanzanian)documented in this encounter [facility] 04-17-2025 Emergency department Note PIV placed, blood collected for lab work, pt states it hurts and he does not want an PIV left in, If I leave it he will rip it out. PIV Dc'd [facility] 04-11-2025 Note At this time patient s appointment is cancelled due to insurance being a HMO, there is no referral on file. Provided fax number once received will contact to schedule. Please advise [facility] 04-11-2025 Telephone encount er Note At this time patients appointment is cancelled due to insurance being a HMO, there is no referral on file. Provided fax number once received will contact to schedule. Please advise [facility] 04-11-2025 Miscellaneous Notes Formattin g of [...] Medication Name: n/a documented in this encounter [facility] 04-11-2025 Telephone encount er Note Scheduled next avail with Dr. Mata. [facility] 04-11-2025 Telephone encount er Note Name of Caller: Sabino Contact Reason for Appointment: Sabino requesting to schedule patient appointment for podiatry. Please advise. Office Name: Ortho Medication Refills need, if any: n/a Medication Name: n/a [facility] 04-09-2025 Emergency department Note Consuelo Johnson here to transport pt back to facility. [facility] 04-09-2025 Emergency department Note Consuelo Johnson [...] to the emergency department via EMS from [facility] for evaluation of hyperkalemia. Patient states that [...] who presents to the emergency department from [facility] with concerns for hyperkalemia. Patient reports [...] signs. FINAL IMPRESSION 1. ESRD on hemodialysis (CMS/HCC) ([facility]) 2. Contusion of dorsum of right hand DISPOSITION Discharge 04/09/2025 01:35:38 PM Shared decision making preformed. PATIENT REFERRED TO: [facility] [address] [facility] [id number] As needed, If symptoms worsen (Comment: [...] Date Acute renal failure (ARF) ([facility]) 10/19/2019 Anemia 12/30/2021 Calcification of abdominal aorta ([facility]) 10/08/202309/[address] abd Diverticulosis 10/08/2023 ESRD on hemodialysis ([facility]) ([facility]) 10/26/2019 Hemodialysis patient ([facility]) ([facility]) HTN (hypertension) 12/01/2022 Hypertension IgA nephropathy IgA nephropathy determined by biopsy of kidney 10/26/2019 Missed vaccination due to patient refusal 10/08/2023 Has a number of non-scientific based beliefs which interfere with his understanding and acceptance of the medical benefit of vaccination. Nonrheumatic aortic valve stenosis 10/08/2023 Paroxysmal A-fib ([facility]) ([facility]) 08/18/2023 Tobacco abuse 10/08/2023 [2] Past Surgical History: Procedure Laterality Date APPENDECTOMY CARDIAC CATHETERIZATION N/A 10/09/2024 Performed by Bob Watson MD at [facility] Cardiac Cath/EP Lab CARDIAC CATHETERIZATION Bilateral 11/01/2024 Performed by Bob Watson MD at [facility] Cardiac Cath/EP Lab CARDIAC CATHETERIZATION N/A 11/01/2024 Performed by Bob Watson MD at [facility] Cardiac Cath/EP Lab COLONOSCOPY N/A 01/24/2025 Performed by Chadd Davis MD at [facility] ENDOSCOPY FISTULAGRAM (HISTORICAL) Left 09/15/2021 LEFT UPPER ARM HX AV FISTULA CREATION IR EMBOLIZATION 10/14/2024 IR EMBOLIZATION 10/14/2024 [facility] SPECIAL PROCEDURES IR FISTULAGRAM 08/07/2022 IR FISTULAGRAM 08/07/2022 [facility] IR IMAGING TONSILLECTOMY (HISTORICAL) [3] Family History [...] 0 min Stress: Stress Concern Present (02/21/2025) [employer] - Occupational Stress Questionnaire Feeling of Stress : To some extent Social Connections: Unknown (02/21/2025) Social Connection and Isolation Panel [NHANES] Frequency of Communication with Friends and Family: More than three times a week Frequency of Social Gatherings with Friends and Family: Patient declined Attends Confucianist Services: Patient declined Active Member of Clubs [...] PA-C 04/09/25 1400 documented in this encounter [facility] 04-09-2025 Hospital Discharg e instructions Yari [...] change or worsen. documented in this encounter [facility] 04-09-2025 Physician Emergen cy department Note [...] to the emergency department via EMS from [facility] for evaluation of hyperkalemia. Patient states that [...] who presents to the emergency department from [facility] with concerns for hyperkalemia. Patient reports [...] 1. ESRD on hemodialysis ([facility]) ([facility]) 2. Contusion of dorsum of right hand DISPOSITION Discharge 04/09/2025 01:35:38 PM Shared decision making preformed. PATIENT REFERRED TO: [facility] [address] [facility] [phone] As needed, If symptoms worsen (Comment: [...] Date Acute renal failure (ARF) ([facility]) 10/19/2019 Anemia 12/30/2021 Calcification of abdominal aorta ([facility]) 10/08/202309/[address] abd Diverticulosis 10/08/2023 ESRD on hemodialysis ([facility]) ([facility]) 10/26/2019 Hemodialysis patient ([facility]) ([facility]) HTN (hypertension) 12/01/2022 Hypertension IgA nephropathy IgA nephropathy determined by biopsy of kidney 10/26/2019 Missed vaccination due to patient refusal 10/08/2023 Has a number of non-scientific based beliefs which interfere with his understanding and acceptance of the medical benefit of vaccination. Nonrheumatic aortic valve stenosis 10/08/2023 Paroxysmal A-fib ([facility]) ([facility]) 08/18/2023 Tobacco abuse 10/08/2023 [2] Past Surgical History: Procedure Laterality Date APPENDECTOMY CARDIAC CATHETERIZATION N/A 10/09/2024 Performed by Bob Watson MD at [facility] Cardiac Cath/EP Lab CARDIAC CATHETERIZATION Bilateral 11/01/2024 Performed by Bob Watson MD at [facility] Cardiac Cath/EP Lab CARDIAC CATHETERIZATION N/A 11/01/2024 Performed by Bob Watson MD at [facility] Cardiac Cath/EP Lab COLONOSCOPY N/A 01/24/2025 Performed by Chadd Davis MD at [facility] ENDOSCOPY FISTULAGRAM (HISTORICAL) Left 09/15/2021 LEFT UPPER ARM HX AV FISTULA CREATION IR EMBOLIZATION 10/14/2024 IR EMBOLIZATION 10/14/2024 [facility] SPECIAL PROCEDURES IR FISTULAGRAM 08/07/2022 [...] 0 min Stress: Stress Concern Present (02/21/2025) [employer] [employer] [facility] - Occupational Stress Questionnaire Feeling of Stress : To some extent Social Connections: Unknown (02/21/2025) Social Connection and Isolation Panel [NHANES] Frequency of Communication with Friends and Family: More than three times a week Frequency of Social Gatherings with Friends and Family: Patient declined Attends Confucianist Services: Patient declined Active Member of Clubs [...] Year: No Yari Santos PA-C 04/09/25 1400 [facility] 04-05-2025 Hospital Discharg e instructions Barbara [...] follow-up as recommended. documented in this encounter [facility] 04-05-2025 Nurse Note Patient Name: Jun Snyder Patient : 1965 Acct: [id number] Date of Admission: 04/05/2025 Room/Bed: Code Status: [...] (0) 3 Regular None (Room air) Clear;Diminished [place];Ecchymosis Warm;Dry Soft Present pt consents to dialysis [...] - Before each treatment: Dialysis Machine No.: [id number] RO Machine Number: [id number] Dialyzer Lot No.: [id number] Tubing Lot Number: [id number] All Connections Secure: Yes Venous Parameters Set: Yes Arterial Parameters Set: Yes NS Bag: Yes Saline Line Double Clamped: Yes Dialyzer: Nipro Prime Volume (mL): 200 mL RO Machine Number: [id number] RO Machine Log Sheet Completed: Yes Machine Alarm Self Test: Completed, Passed (1351) (04/05/25 1351) Air Foam Detector: Tested, Proper Function Extracorporeal Circuit Tested for Integrity: Yes Machine Conductivity: 13.6 Manual Conductivity: 13.6 Manual Ph: 7 Bleach Test (Neg): Yes Bath Temperature: 36 C (96.8 F) Conductivity Meter Serial #: [id number] Machine Functioning Alarm Free? Yes Dialysis Bath: K+ (Potassium): 2 Ca+ (Calcium): 2.5 Na+ (Sodium): 137 HCO3 (Bicarb): 35 Bicarbonate Concentrate Lot No.: [id number] Acid Concentrate Lot No.: [id number] Chlorine Testing - Before each treatment and [...] pt resting, respiratory movement, uf removal 789 07/10/25 1515 450 mL/min 830 ml/hr -160 mmHg [...] Diagnosis Anemia Paroxysmal A-fib ([facility]) ([facility]) HTN (hypertension) ESRD on hemodialysis ([facility]) ([facility]) IgA nephropathy determined by biopsy of kidney Diverticulosis Nonrheumatic aortic valve stenosis Calcification of abdominal aorta ([facility]) Missed vaccination due to patient refusal Tobacco abuse Alcohol use disorder in remission Atrial flutter, unspecified type ([facility]) RSV (acute bronchiolitis due to respiratory syncytial virus) Aortic stenosis Upper GI bleed S/P AVR Acute hypoxic respiratory failure ([facility]) Acute encephalopathy Pneumoperitoneum Gastric ulceration Severe malnutrition ([facility]) ([facility]) Pleural effusion Peritonitis due to fungus ([facility]) History of abdominal surgery Leg DVT (deep venous thromboembolism), acute, left (HCC) Ischemic ulcer of toe of left foot, limited to breakdown of skin ([facility]) Tracheostomy dependence ([facility]) Leukocytosis Decubitus ulcer of sacral region, unstageable ([facility]) Pneumonia of both lungs due to methicillin susceptible Staphylococcus aureus (MSSA) ([facility]) Sacral osteomyelitis ([facility]/HCC) ([facility]) Acute respiratory failure with hypoxia ([facility]) [J96.01] Tracheostomy care ([facility]) [Z43.0] Pulmonary embolism ([facility]) MCFP (current) use of antibiotics Complication of tracheostomy ([facility]/HCC) ([facility]) BRBPR (bright red blood per rectum) Hemoptysis SOB (shortness of breath) Moderate malnutrition ([facility]) ([facility]) Shortness of breath [3] [facility] 04-05-2025 Nurse Note Patient Name: Jun Snyder Patient : 1965 Acct: [id number] Date of Admission: 04/05/2025 Room/Bed: Code Status: [...] (0) 3 Regular None (Room air) Clear;Diminished [place];Ecchymosis Warm;Dry Soft Present pt consents to dialysis [...] - Before each treatment: Dialysis Machine No.: [id number] RO Machine Number: [id number] Dialyzer Lot No.: [id number] Tubing Lot Number: [id number] All Connections Secure: Yes Venous Parameters Set: Yes Arterial Parameters Set: Yes NS Bag: Yes Saline Line Double Clamped: Yes Dialyzer: Nipro Prime Volume (mL): 200 mL RO Machine Number: [id number] RO Machine Log Sheet Completed: Yes Machine Alarm Self Test: Completed, Passed (1351) (04/05/25 135) Air Foam Detector: Tested, Proper Function Extracorporeal Circuit Tested for Integrity: Yes Machine Conductivity: 13.6 Manual Conductivity: 13.6 Manual Ph: 7 Bleach Test (Neg): Yes Bath Temperature: 36 C (96.8 F) Conductivity Meter Serial #: [id number] Machine Functioning Alarm Free? Yes Dialysis Bath: K+ (Potassium): 2 Ca+ (Calcium): 2.5 Na+ (Sodium): 137 HCO3 (Bicarb): 35 Bicarbonate Concentrate Lot No.: [id number] Acid Concentrate Lot No.: [id number] Chlorine Testing - Before each treatment and every 4 hours: Time On: 1403 Treatment Goal: 2L Weight Height: 177.8 cm (5' 10") (04/05/25 101) Weight: 66.7 kg (147 lb) (04/05/251014) BMI (Calculated): 21.09 (04/05/25 101) 1st check: less than 0.1 ppm at: [...] and report given to Primary RN at 9660. Primary RN (First Initial, Last Name, Title): [...] Diagnosis Anemia Paroxysmal A-fib ([facility]) (HCC) HTN (hypertension) ESRD on hemodialysis ([facility]) ([facility]) IgA nephropathy determined by biopsy of kidney Diverticulosis Nonrheumatic aortic valve stenosis Calcification of abdominal aorta (HCC) Missed vaccination due to patient refusal Tobacco abuse Alcohol use disorder in remission Atrial flutter, unspecified type ([facility]) RSV (acute bronchiolitis due to respiratory syncytial [...] Tracheostomy care (HCC) [Z43.0] Pulmonary embolism (HCC) MCFP (current) use of antibiotics Complication of tracheostomy (CMS/HCC) (HCC) BRBPR (bright red blood per rectum) Hemoptysis SOB (shortness of breath) Moderate malnutrition (CMS/HCC) (HCC) Shortness of breath [3] documented in this encounter [facility] 04-05-2025 Emergency department Note Dialysis at bedside. [facility] 04-05-2025 Emergency department Note Dialysis at [...] provider for clarification. Dieter Villegas MD 04/05/25 1321 Pt here to the ER via EMS [...] and get vitals. documented in this encounter [facility] 04-05-2025 Miscellaneous Notes Formattin g of this note might be different from the original. Noted Spoke with patient's nurse from [facility]. Patient's nurse stated will need to cancel today's appointment. Nurse stated Patient was sent to [place] [facility] for tachycardia. Nurse stated can not complete dialysis with patient's tachycardia. Nurse stated Sabino who scheduled appointments will call the office at a later time to reschedule patient's appointment. FYI to provider. documented in this encounter [facility] [employer] 04-05-2025 Telephone encount er Note Noted [facility] [employer] Work Phone: 04-05-2025 Emergency department Note Pt has no complaints at this time. [facility] 04-05-2025 Emergency department Triage note Pt [...] to hook pt up and get vitals. [facility] 04-05-2025 Physician Emergen cy department Note [...] provider for clarification. Dieter Villegas MD 04/05/25 1328 [facility] 04-05-2025 Telephone encount er Note Spoke with patient's nurse from [facility]. Patient's nurse stated will need to cancel today's appointment. Nurse stated Patient was sent to [facility] for tachycardia. Nurse stated can not complete dialysis with patient's tachycardia. Nurse stated Sabino who scheduled appointments will call the office at a later time to reschedule patient's appointment. FYI to provider. [facility] 03-26-2025 Telephone encount er Note 3rd attempt unable to speak to Sabino she's not in the office at them moment. Left message to call the office back to schedule [facility] 03-26-2025 Miscellaneous Notes Formattin g of [...] this? Thank you documented in this encounter [facility] 03-26-2025 Telephone encount er Note Sabino has been notified the visit can not be virtual [facility] 03-26-2025 Miscellaneous Notes Formattin g of this note might be different from the original. Sabino has been notified the visit can not be virtual Name of Caller: Bobbi Washington [facility] Contact Reason for Appointment: Change 04/05/25 hospital follow up to a vv. Please call and advise. [place] [facility] [place]an Cindy documented in this encounter [facility] 03-26-2025 Telephone encount er Note Name of Caller: Bobbi Delvalle [place] Contact Reason for Appointment: Change 04/05/25 hospital follow up to a vv. Please call and advise. [place] [facility] Gibran Cindy [facility] 03-21-2025 Nurse Note Educated pt on importance of prescribed medications. Pt still refused. [facility] 03-21-2025 Nurse Note Educated pt on importance of prescribed medications. Pt still refused. Patient Name: Jun Snyder Patient : 1965 Acct: [id number] Date of Admission: 03/13/2025 [facility] Code Status: Full Code Allergies: [...] - Before each treatment: Dialysis Machine No.: [id number] RO Machine Number: [id number] Dialyzer Lot No.: [id number] Tubing Lot Number: [id number] All Connections Secure: Yes Venous Parameters Set: Yes Arterial Parameters Set: Yes NS Bag: Yes Saline Line Double Clamped: Yes Dialyzer: Nipro Prime Volume (mL): 200 mL RO Machine Number: [id number] RO Machine Log Sheet Completed: Yes Machine Alarm Self Test: Completed, Passed (03/20/25 114) Air Foam Detector: Tested, Proper Function, pH Reading Extracorporeal Circuit Tested for Integrity: Yes Machine Conductivity: 13.8 Manual Conductivity: 13.8 Manual Ph: 7 Bleach Test (Neg): Yes Bath Temperature: 36 C (96.8 F) Conductivity Meter Serial #: [id number] Machine Functioning Alarm Free? Yes Dialysis Bath: [...] Diagnosis Anemia Paroxysmal A-fib ([facility]) ([facility]) HTN (hypertension) ESRD on hemodialysis ([facility]) ([facility]) IgA nephropathy determined by biopsy of kidney Diverticulosis Nonrheumatic aortic valve stenosis Calcification of abdominal aorta ([facility]) Missed vaccination due to patient refusal Tobacco abuse Alcohol use disorder in remission Atrial flutter, unspecified type ([facility]) RSV (acute bronchiolitis due to respiratory syncytial [...] Acute respiratory failure with hypoxia ([facility]) [J96.01] Tracheostomy care ([facility]) [Z43.0] Pulmonary embolism ([facility]) MCFP (current) use of antibiotics Complication of tracheostomy (CMS/HCC) ([facility]) BRBPR (bright red blood per rectum) Hemoptysis SOB (shortness of breath) Moderate malnutrition (CMS/HCC) ([facility]) [3] heparin, 5-30 Units/kg/hr, Last Rate: 20 Units/kg/hr (03/20/25 1328) Wound vac suction failing-pt requesting wound vac removed for now. Black foam dressing removed and wound packed with saline-soaked gauze covered with DSD Pt adamantly refusing telemetry at this time, ripped off monitor and threw to the floor Patient Name: Jun Snyder Patient : 1965 Acct: [id number] Date of Admission: 03/13/2025 [facility] Code Status: Full Code Allergies: [...] - Before each treatment: Dialysis Machine No.: [id number] RO Machine Number: [id number] Dialyzer Lot No.: [id number] Tubing Lot Number: [id number] All Connections Secure: Yes Venous Parameters Set: Yes Arterial Parameters Set: Yes NS Bag: Yes Saline Line Double Clamped: Yes Dialyzer: Nipro Prime Volume (mL): 200 mL RO Machine Number: [id number] RO Machine Log Sheet Completed: Yes Machine Alarm Self Test: Completed, Passed (03/17/25 0803) Air Foam Detector: Tested, Proper Function, pH Reading Extracorporeal Circuit Tested for Integrity: Yes Machine Conductivity: 13.6 Manual Conductivity: 13.6 Manual Ph: 7 Bleach Test (Neg): Yes Bath Temperature: 36 C (96.8 F) Conductivity Meter Serial #: [id number] Machine Functioning Alarm Free? Yes Dialysis Bath: [...] Diagnosis Anemia Paroxysmal A-fib ([facility]) ([facility]) HTN (hypertension) ESRD on hemodialysis ([facility]) ([facility]) IgA nephropathy determined by biopsy of kidney Diverticulosis Nonrheumatic aortic valve stenosis Calcification of abdominal aorta ([facility]) Missed vaccination due to patient refusal Tobacco abuse Alcohol use disorder in remission Atrial flutter, unspecified type ([facility]) RSV (acute bronchiolitis due to respiratory syncytial virus) Aortic stenosis Upper GI bleed S/P AVR Acute hypoxic respiratory failure ([facility]) Acute encephalopathy Pneumoperitoneum Gastric ulceration Severe malnutrition ([facility]) ([facility]) Pleural effusion Peritonitis due to fungus ([facility]) History of abdominal surgery Leg DVT (deep venous thromboembolism), acute, left ([facility]) Ischemic ulcer of toe of left foot, limited to breakdown of skin ([facility]) Tracheostomy dependence ([facility]) Leukocytosis Decubitus ulcer of sacral region, unstageable (HCC) Pneumonia of both lungs due to methicillin susceptible Staphylococcus aureus (MSSA) (HCC) Sacral osteomyelitis (CMS/HCC) (HCC) Acute respiratory failure with hypoxia ([facility]) [J96.01] Tracheostomy care ([facility]) [Z43.0] Pulmonary embolism ([facility]) 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 Complication of tracheostomy (CMS/HCC) ([facility]) BRBPR (bright red blood per rectum) Hemoptysis SOB (shortness of breath) Moderate malnutrition (CMS/HCC) ([facility]) [3] heparin, 5-30 Units/kg/hr Patient Name: Jun Snyder Patient : 1965 Acct: [id number] Date of Admission: 03/13/2025 [facility] Code Status: Full Code Allergies: [...] - Before each treatment: Dialysis Machine No.: [id number] RO Machine Number: [id number] Dialyzer Lot No.: [id number] Tubing Lot Number: [id number] All Connections Secure: Yes Venous Parameters Set: Yes Arterial Parameters Set: Yes NS Bag: Yes Saline Line Double Clamped: Yes Dialyzer: Nipro Prime Volume (mL): 200 mL RO Machine Number: [id number] RO Machine Log Sheet Completed: Yes Machine Alarm Self Test: Completed, Passed (03/15/25 1215) Air Foam Detector: Tested, Proper Function, pH Reading Extracorporeal Circuit Tested for Integrity: Yes Machine Conductivity: 13.8 Manual Conductivity: 13.7 Manual Ph: 7 Bleach Test (Neg): Yes Bath Temperature: 36 C (96.8 F) Conductivity Meter Serial #: [id number] Machine Functioning Alarm Free? Yes Dialysis Bath: K+ (Potassium): 2 Ca+ (Calcium): 2.5 Na+ (Sodium): 135 HCO3 (Bicarb): 35 Chlorine Testing - Before each treatment and every 4 hours: Time On: 1237 Time Off: 1537 Treatment Goal: 1L Weight Height: 177.8 cm (5' 10") (03/14/25 1617) Weight: 65 kg (143 lb 4.8 oz) (03/15/25 07) BMI (Calculated): 20.56 (03/15/25699) 1st check: less than 0.1 ppm at: [...] and need for orders) Provider Name: dr snaon Provider Role: Attending physician Method of Communication: [...] Diagnosis Anemia Paroxysmal A-fib ([facility]) ([facility]) HTN (hypertension) ESRD on hemodialysis ([facility]) ([facility]) IgA nephropathy determined by biopsy of kidney Diverticulosis Nonrheumatic aortic valve stenosis Calcification of abdominal aorta ([facility]) Missed vaccination due to patient refusal Tobacco [...] Acute respiratory failure with hypoxia ([facility]) [J96.01] Tracheostomy care ([facility]) [Z43.0] Pulmonary embolism ([facility]) 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 Pt's Kee score= 14 on 03/13 Pt's pressure points assessed. Pt's Heels, Back, Elbows, Occiput and ears all intact. [place] and healed area noted to occiput. Pt moving lower extremities well in bed against gravity. Pt currently followed by [facility]ound [facility] group for wounds to left toes 1-4 and sacrum with wound vac in place. For left toes, sacrum, and sacral wound vac assessments and treatment plan, please see Wound/Ostomy [facility] progress notes. Instructed pt on pressure injury prevention and importance of turning/postioning every 2hrs while in bed and every 15 min while sitting in chair. Instructed on use and care of waffle chair cushion. Verbalized understanding. Prevention Measures in place, including: [place] sheet with pillows/wedges, Heels elevated off bed on pillows, Zinc/Moisture Barrier ointment (obtained), Waffle chair cushion (obtained for pt). Skin Care precaution order set in place. Dietitian consult order placed d/t wounds. PT/OT consult in place. Will continue to follow pt. Please Vocera for any questions or concerns. Yari Pelletier RN Patient Name: Jun Snyder Patient : 1965 Acct: [id number] Date of Admission: 03/13/2025 [facility] Code Status: Full Code Allergies: [...] - Before each treatment: Dialysis Machine No.: [id number] Machine Number: [id number] Dialyzer Lot No.: [id number] Tubing Lot Number: [id number] All Connections Secure: Yes Venous Parameters Set: Yes Arterial Parameters Set: Yes NS Bag: Yes Saline Line Double Clamped: Yes Dialyzer: Nipro Prime Volume (mL): 200 mL RO Machine Number: [id number] RO Machine Log Sheet Completed: Yes Machine Alarm Self Test: Completed, Passed (03/14/25 1135) Air Foam Detector: Tested, Proper Function, pH Reading Extracorporeal Circuit Tested for Integrity: Yes Machine Conductivity: 13.7 Manual Conductivity: 13.6 Manual Ph: 7 Bleach Test (Neg): Yes Bath Temperature: 36 C (96.8 F) Conductivity Meter Serial #: [id number] Machine Functioning Alarm Free? 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 MAR, Labs & Discharge med list transmitted to [facility] via [facility] per TCC request. [facility] 03-21-2025 Note Formatting of this n ote might be different from the original. MAR, Labs & Discharge med list transmitted to [facility] via [facility] per TCC request. [facility] 03-21-2025 Miscellaneous Notes Formattin g of this note might be different from the original. MAR, Labs & Discharge med list transmitted to [facility] via [employer] per TCC request. Transport requested in Roundtrip. Awaiting time confirmation. Confirmed pickup time of 5:00PM by transport company [employer] at phone number . Location of facility drop off is [facility]. Facility notified via [employer], Kaity Rivera notified on secure chat. Care [...] When stable plan is to return to [facility].. . Length of Stay (Days): [...] When stable is a bed hold at [facility]. . Length of Stay (Days): [...] therapies are following. Wants to return to [facility]. Is a bed hold, but if they can skill him they would like to.. Length of Stay (Days): 1 GMLOS: No GMLOS Documented Referral placed to [facility] Return - [facility] via [facility] per [facility] request. Await review and response regarding ability to accept. TCC notified. Problem: Knowledge Deficit Goal: Patient/family/caregiver demonstrates understanding of disease process, treatment plan, medications, and discharge instructions Outcome: Progressing Problem: Potential for Compromised Skin Integrity Goal: Skin Integrity is Maintained or Improved Outcome: Progressing documented in this encounter [facility] 03-21-2025 Note Formatting of this n ote might be different from the original. Transport requested in Roundtrip. Awaiting time confirmation. Confirmed pickup time of 5:00PM by transport company [employer] at phone number . Location of facility drop off is [facility]. Facility notified via [employer] notified on secure chat. [facility] 03-21-2025 Note Formatting of this n ote might be different from the original. Transport requested in [employer]trip. Awaiting time confirmation. Confirmed pickup time of 5:00PM by transport [employer] at phone number . Location of facility drop off is [facility]. Facility notified via [employer] notified on secure chat. [facility] 03-21-2025 Note [facility] 03-21-2025 Hospital course Narrative Discharge Summary Jun Dodd Lillian : 1965 ADMIT DATE: 03/13/2025 DISCHARGE DATE: [...] Klebsiella pneumonia with lung abscess presented to [place] ED with worsening shortness of breath. He [...] Complexity: follow up within 7-14 calendar days (03643) [x] Severe Complexity: follow up within 7 calendar days (31430) FOLLOW UP TESTING, PENDING RESULTS OR REFERRALS AT TRANSITIONAL CARE VISIT: [] Yes [x] No PENDING STUDIES: None DISPOSITION: [facility] (Non-Skilled) FACILITY/HOME CARE AGENCY NAME: [facility] Follow up with Leilani Tron[place] [address] Follow up INSTRUCTIONS TO MA/SW: Please [...] 03/21/2025, 12:07 PM documented in this encounter [facility] 03-21-2025 History of Presen t illness [...] Klebsiella pneumonia with lung abscess presented to [place] ED with worsening shortness of breath. He [...] Labs 03/19/25 0752 03/20/25 0548 03/21/25 0624 NA 137 136 134* K 4.0 5.3* [...] MD Division of Hospital Medicine Inpatient Medical Services/[facility] [1] Past Medical History: Diagnosis Date Acute renal failure (ARF) ([facility]) 10/19/2019 Anemia 12/30/2021 Calcification of abdominal aorta ([facility]) 10/08/202309/[address] abd Diverticulosis 10/08/2023 ESRD on hemodialysis ([facility]) ([facility]) 10/26/2019 Hemodialysis patient ([facility]) ([facility]) HTN (hypertension) 12/01/2022 Hypertension IgA nephropathy IgA nephropathy determined by biopsy of kidney 10/26/2019 Missed vaccination due to patient refusal 10/08/2023 Has a number of non-scientific based beliefs which interfere with his understanding and acceptance of the medical benefit of vaccination. Nonrheumatic aortic valve stenosis 10/08/2023 Paroxysmal A-fib ([facility]) ([facility]) 08/18/2023 Tobacco abuse 10/08/2023 [2] Lidocaine, 1 [...] Date Acute renal failure (ARF) ([facility]) 10/19/2019 Anemia 12/30/2021 Calcification of abdominal aorta ([facility]) 10/08/202309/[address] abd Diverticulosis 10/08/2023 ESRD on hemodialysis ([facility] ([facility]) 10/26/2019 Hemodialysis patient ([facility]) ([facility]) HTN (hypertension) 12/01/2022 Hypertension IgA nephropathy IgA nephropathy determined by biopsy of kidney 10/26/2019 Missed vaccination due to patient refusal 10/08/2023 Has a number of non-scientific based beliefs which interfere with his understanding and acceptance of the medical benefit of vaccination. Nonrheumatic aortic valve stenosis 10/08/2023 Paroxysmal A-fib ([facility]) ([facility]) 08/18/2023 Tobacco abuse 10/08/2023 Images from the original note were not included. PHYSICAL THERAPY [facility] Name/MRN: Jair Snyder ([id number]) Date: 03/21/2025 Chart review completed this date. [...] another time/date as schedule permits. Cecy Pierre, QUALITY ASSURANCE CALIBRATOR Cosigned by Darryn Tay, PT at 03/21/2025 2:58 PM EDT [facility] Anticoagulation Management Service ([facility]) Inpatient Warfarin [...] dose accordingly. 3. Warfarin is followed by [facility] outpatient. [facility] will manage inpatient and take over management once discharged from SNF. Fatuma Odonnell RPh, PharmD [facility] is available daily [phone] via Y-Klub. If no response on Epic Chat then please page [phone]. [1] Past Medical History: Diagnosis Date Acute renal failure (ARF) ([facility]) 10/19/2019 Anemia 12/30/2021 Calcification of abdominal aorta ([facility]) 10/08/202309/[address] abd Diverticulosis 10/08/2023 ESRD on hemodialysis ([facility]) ([facility]) 10/26/2019 Hemodialysis patient ([facility]) ([facility]) HTN (hypertension) 12/01/2022 Hypertension IgA nephropathy IgA nephropathy determined by biopsy of kidney 10/26/2019 Missed vaccination due to patient refusal 10/08/2023 Has a number of non-scientific based beliefs which interfere with his understanding and acceptance of the medical benefit of vaccination. Nonrheumatic aortic valve stenosis 10/08/2023 Paroxysmal A-fib ([facility]) ([facility]) 08/18/2023 Tobacco abuse 10/08/2023 Nutrition Assessment Type [...] Klebsiella pneumonia with lung abscess presented to [place] ED with worsening shortness of breath. He [...] (Aug 2024) % Weight Change (Calculated): -28.6 [place] Body Weight (lbs) (Calculated): 166 lbs [place] Body Weight (Kg) (Calculated): 75 kg % [place] Body Weight (Calculated): 88.6 % BMI (kg/m2) [...] Yasemin Ceron MS, RD, LD Contact: or Exaptive Chat (dial *[phone] from hospital phone) [1] Lidocaine, 1 patch, Topical, Daily metoprolol tartrate, 50 mg, Oral, BID pantoprazole, 40 mg, Oral, BID AC sevelamer carbonate, 800 mg, Oral, TID WC sodium zirconium cyclosilicate, 5 g, Oral, Daily [2] heparin, 5-30 Units/kg/hr, Last Rate: 20 Units/kg/hr (03/20/25 1643) [facility] Anticoagulation Management [facility] ([facility]) Inpatient Warfarin [...] candidate 2025, staffed with Fatuma Odonnell PharmD, [facility] is available daily [phone] via Y-Klub. If no response on Exaptive Chat then please page [phone]. [1] Past Medical History: Diagnosis Date Acute renal failure (ARF) ([facility]) 10/19/2019 Anemia 12/30/2021 Calcification of abdominal aorta ([facility]) 10/08/202309/[address] abd Diverticulosis 10/08/2023 ESRD on hemodialysis ([facility]) ([facility]) 10/26/2019 Hemodialysis patient ([facility]) ([facility]) HTN (hypertension) 12/01/2022 Hypertension IgA nephropathy IgA [...] Klebsiella pneumonia with lung abscess presented to [place] ED with worsening shortness of breath. He [...] [phone] BMP: Recent Labs 03/18/2515803/19/25 07503/20/25 0548 NA 139 137 136 K 3.4* [...] MD Division of Hospital Medicine Inpatient Medical Services/[facility] [1] Past Medical History: Diagnosis Date Acute renal failure (ARF) ([facility]) 10/19/2019 Anemia 12/30/2021 Calcification of abdominal aorta ([facility]) 10/08/202309/[address] abd Diverticulosis 10/08/2023 ESRD on hemodialysis ([facility]) ([facility]) 10/26/2019 Hemodialysis patient ([facility]) ([facility]) HTN (hypertension) 12/01/2022 Hypertension IgA nephropathy IgA nephropathy determined by biopsy of kidney 10/26/2019 Missed vaccination due to patient refusal 10/08/2023 Has a number of non-scientific based beliefs which interfere with his understanding and acceptance of the medical benefit of vaccination. Nonrheumatic aortic valve stenosis 10/08/2023 Paroxysmal A-fib ([facility]) ([facility]) 08/18/2023 Tobacco abuse 10/08/2023 [2] Lidocaine, 1 [...] Date Acute renal failure (ARF) ([facility]) 10/19/2019 Anemia 12/30/2021 Calcification of abdominal aorta ([facility]) 10/08/202309/[address] abd Diverticulosis 10/08/2023 ESRD on hemodialysis ([facility]) ([facility]) 10/26/2019 Hemodialysis patient ([facility]) ([facility]) HTN (hypertension) 12/01/2022 Hypertension IgA nephropathy IgA nephropathy determined by biopsy of kidney 10/26/2019 Missed vaccination due to patient refusal 10/08/2023 Has a number of non-scientific based beliefs which interfere with his understanding and acceptance of the medical benefit of vaccination. Nonrheumatic aortic valve stenosis 10/08/2023 Paroxysmal A-fib ([facility]) ([facility]) 08/18/2023 Tobacco abuse 10/08/2023 [facility] Anticoagulation Management [facility] ([facility]) Inpatient Warfarin [...] candidate 2025, staffed with Fatuma Odonnell PharmD, [facility] is available daily [phone] via Y-Klub. If no response on Exaptive Chat then please page [phone]. [1] Past Medical History: Diagnosis Date Acute renal failure (ARF) ([facility]) 10/19/2019 Anemia 12/30/2021 Calcification of abdominal aorta ([facility]) 10/08/202309/[address] abd Diverticulosis 10/08/2023 ESRD on hemodialysis ([facility]) ([facility]) 10/26/2019 Hemodialysis patient ([facility]) ([facility]) HTN (hypertension) 12/01/2022 Hypertension IgA nephropathy IgA nephropathy determined by biopsy of kidney 10/26/2019 Missed vaccination due to patient refusal 10/08/2023 Has a number of non-scientific based beliefs which interfere with his understanding and acceptance of the medical benefit of vaccination. Nonrheumatic aortic valve stenosis 10/08/2023 Paroxysmal A-fib ([facility]) ([facility]) 08/18/2023 Tobacco abuse 10/08/2023 Cosigned by Fatuma Odonnell RPh at 03/19/2025 2:39 PM EDT Images from the original note were not included. [facility] Wound Care/NPWT Progress Note Jun Snyder [...] apply Betadine and allow to dry, leave LIVESTOCK HAULIER daily and PRN Centrella Pro Plus bed Reposition q2hrs Incontinent checks q2hrs Nutritional support Wound Care to follow Recommend to follow up at [facility] wound care center after hospital discharge. [...] Date Acute renal failure (ARF) ([facility]) 10/19/2019 Anemia 12/30/2021 Calcification of abdominal aorta ([facility]) 10/08/202309/[address] abd Diverticulosis 10/08/2023 ESRD on hemodialysis ([facility]) ([facility]) 10/26/2019 Hemodialysis patient ([facility]) ([facility]) HTN (hypertension) 12/01/2022 Hypertension IgA nephropathy IgA nephropathy determined by biopsy of kidney 10/26/2019 Missed vaccination due to patient refusal 10/08/2023 Has a number of non-scientific based beliefs which interfere with his understanding and acceptance of the medical benefit of vaccination. Nonrheumatic aortic valve stenosis 10/08/2023 Paroxysmal A-fib ([facility]) ([facility]) 08/18/2023 Tobacco abuse 10/08/2023 [2] Past Surgical History: Procedure Laterality Date APPENDECTOMY CARDIAC CATHETERIZATION N/A 10/09/2024 Performed by Bob Watson MD at [facility] Cardiac Cath/EP Lab CARDIAC CATHETERIZATION Bilateral 11/01/2024 Performed by Bob Watson MD at [facility] Cardiac Cath/EP Lab CARDIAC CATHETERIZATION N/A 11/01/2024 Performed by Bob Watson MD at [facility] Cardiac Cath/EP Lab COLONOSCOPY N/A 01/24/2025 Performed by Chadd Davis MD at [facility] ENDOSCOPY FISTULAGRAM (HISTORICAL) Left 09/15/2021 LEFT UPPER ARM HX AV FISTULA CREATION IR EMBOLIZATION 10/14/2024 IR EMBOLIZATION 10/14/2024 [facility] SPECIAL PROCEDURES IR FISTULAGRAM 08/07/2022 IR FISTULAGRAM 08/07/2022 [facility] IR IMAGING TONSILLECTOMY (HISTORICAL) [3] Family History [...] Note Subjective: Admit Date: 03/13/2025 PCP: Leilani Troncoos Room#: [facility]/[id number] A Chief Complaint Patient presents with Shortness [...] Klebsiella pneumonia with lung abscess presented to [place] ED with worsening shortness of breath. He [...] from [facility] to [facility] due to bed availability Nephrology consulted, [...] Net 200 ml LABS: CBC: Recent Labs 03/17/254603/18/25 01503/19/25 0752 WBC 6.7 7.6 7.8 RBC 3.31* 3.03* 2.98* HGB 10.0* 9.1* 8.9* HCT 33.8* 30.4* 30.4* MCV 102.1* 100.3* 102.0* RDW 21.2* 20.6* 20.8* PLT 407 333 320 BMP: Recent Labs 03/17/25 00403/18/25 0159 03/19/25 0752 NA 141 139 137 K 3.9 3.4* 4.0 CL 104 100 102 CO2 25 29 27 BUN 22 16 24* CREATININE 3.25* 2.64* 3.67* GLUCOSE 87 73* 85 CALCIUM 9.6 9.0 9.0 ANIONGAP 12 10 8 LIVER PROFILE: Recent Labs 03/17/257 03/18/25 0159 03/19/25 0752 AST 54* 50* 52* ALT 15 11 14 BILITOT 0.9 0.8 0.9 ALKPHOS 223* 241* 221* PROT 8.0 7.3 7.4 PT/INR: Recent Labs 03/17/25 0047 03/18/25 0159 03/19/25 0752 PROTIME 16.0* 15.2* [...] Date -1 to 2 days - Location -[facility] - Pending the following -clinical course, subtherapeutic INR, on bridging with heparin drip Total time spent (which include face to face and non face to face encounters) : 38.5 minutes Extended Emergency Contact Information Primary Emergency Contact: Omar Snyder Mobile Relation: Child Secondary Emergency Contact: Toma Mcneil Mobile Relation: Partner Barb Dawkins MD Division of Hospital Medicine Inpatient Medical Services/[facility] [1] Past Medical History: Diagnosis Date Acute renal failure (ARF) ([facility]) 10/19/2019 Anemia 12/30/2021 Calcification of abdominal aorta (HCC) 10/08/202309/[address] abd Diverticulosis 10/08/2023 ESRD on hemodialysis ([facility]) ([facility]) 10/26/2019 Hemodialysis patient ([facility]) ([facility]) HTN (hypertension) 12/01/2022 Hypertension IgA nephropathy IgA nephropathy determined by biopsy of kidney 10/26/2019 Missed vaccination due to patient refusal 10/08/2023 Has a number of non-scientific based beliefs which interfere with his understanding and acceptance of the medical benefit of vaccination. Nonrheumatic aortic valve stenosis 10/08/2023 Paroxysmal A-fib ([facility]) ([facility]) 08/18/2023 Tobacco abuse 10/08/2023 [2] Lidocaine, 1 [...] Date Acute renal failure (ARF) ([facility]) 10/19/2019 Anemia 12/30/2021 Calcification of abdominal aorta ([facility]) 10/08/202309/[address] abd Diverticulosis 10/08/2023 ESRD on hemodialysis ([facility]) ([facility]) 10/26/2019 Hemodialysis patient ([facility]) ([facility]) HTN (hypertension) 12/01/2022 Hypertension IgA nephropathy IgA nephropathy determined by biopsy of kidney 10/26/2019 Missed vaccination due to patient refusal 10/08/2023 Has a number of non-scientific based beliefs which interfere with his understanding and acceptance of the medical benefit of vaccination. Nonrheumatic aortic valve stenosis 10/08/2023 Paroxysmal A-fib ([facility]) ([facility]) 08/18/2023 Tobacco abuse 10/08/2023 Nephrology Progress Note [...] sacral wound. Wellington Nicole MD' Please call [phone] or message me through Exaptive with any questions or concerns. Nephrology Progress [...] 407 333 Recent Labs 03/16/2515403/17/25 0047 03/18/25 0159 NA 139 141 139 [...] sacral wound. Wellington Nicole MD' Please call [phone] or message me through Exaptive with any questions or concerns. Hospitalist Progress [...] Klebsiella pneumonia with lung abscess presented to [place] ED with worsening shortness of breath. He [...] in upper abdomen He was transferred from [place] ED to [facility] due to bed availability Nephrology consulted, [...] Net 420 ml LABS: CBC: Recent Labs 03/16/2515403/17/254603/18/25 015 WBC 7.0 6.7 7.6 RBC 3.02* [...] 9 12 10 LIVER PROFILE: Recent Labs 03/16/2515403/17/25 0047 03/18/25 0159 AST 47* 54* 50* [...] MD Division of Hospital Medicine Inpatient Medical Services/[facility] [1] Past Medical History: Diagnosis Date Acute renal failure (ARF) ([facility]) 10/19/2019 Anemia 12/30/2021 Calcification of abdominal aorta ([facility]) 10/08/202309/[address] abd Diverticulosis 10/08/2023 ESRD on hemodialysis ([facility]) ([facility]) 10/26/2019 Hemodialysis patient ([facility]) ([facility]) HTN (hypertension) 12/01/2022 Hypertension IgA nephropathy IgA nephropathy determined by biopsy of kidney 10/26/2019 Missed vaccination due to patient refusal 10/08/2023 Has a number of non-scientific based beliefs which interfere with his understanding and acceptance of the medical benefit of vaccination. Nonrheumatic aortic valve stenosis 10/08/2023 Paroxysmal A-fib ([facility]) ([facility]) 08/18/2023 Tobacco abuse 10/08/2023 [2] Lidocaine, 1 [...] Date Acute renal failure (ARF) ([facility]) 10/19/2019 Anemia 12/30/2021 Calcification of abdominal aorta ([facility]) 10/08/202309/[address] abd Diverticulosis 10/08/2023 ESRD on hemodialysis ([facility]) ([facility]) 10/26/2019 Hemodialysis patient ([facility]) ([facility]) HTN (hypertension) 12/01/2022 Hypertension IgA nephropathy IgA nephropathy determined by biopsy of kidney 10/26/2019 Missed vaccination due to patient refusal 10/08/2023 Has a number of non-scientific based beliefs which interfere with his understanding and acceptance of the medical benefit of vaccination. Nonrheumatic aortic valve stenosis 10/08/2023 Paroxysmal A-fib ([facility]) ([facility]) 08/18/2023 Tobacco abuse 10/08/2023 [facility] Anticoagulation Management Service ([facility]) Inpatient Warfarin [...] and take over management once discharged from [facility]. Darya Mireles [facility], PharmD, BCPS SAIL[facility]JA is available daily [phone] via Y-Klub. If no response on Exaptive Chat then please page [phone]. [1] Past Medical History: Diagnosis Date Acute renal failure (ARF) ([facility]) 10/19/2019 Anemia 12/30/2021 Calcification of abdominal aorta (HCC) 10/08/202309/[address] abd Diverticulosis 10/08/2023 ESRD on hemodialysis ([facility]) (HCC) 10/26/2019 Hemodialysis patient ([facility]) ([facility]) HTN (hypertension) 12/01/2022 Hypertension IgA nephropathy IgA [...] Klebsiella pneumonia with lung abscess presented to [place] ED with worsening shortness of breath. He [...] in upper abdomen He was transferred from [place] ED to [facility] due to bed availability Nephrology consulted, [...] Date -1 to 2 days - Location -[facility] - Pending the following -clinical course Total time spent (which include face to face and non face to face encounters) : 39 minutes Extended Emergency Contact Information Primary Emergency Contact: Omar Snyder Mobile Relation: Child Secondary Emergency Contact: Toma Mcneil Mobile Relation: Partner [place] Annamarie Dawkins MD Division of Hospital Medicine Inpatient Medical Services/[facility] [1] Past Medical History: Diagnosis Date Acute renal failure (ARF) ([facility]) 10/19/2019 Anemia 12/30/2021 Calcification of abdominal aorta ([facility]) 10/08/202309/[address] abd Diverticulosis 10/08/2023 ESRD on hemodialysis ([facility]) ([facility]) 10/26/2019 Hemodialysis patient ([facility]) ([facility]) HTN (hypertension) 12/01/2022 Hypertension IgA nephropathy IgA nephropathy determined by biopsy of kidney 10/26/2019 Missed vaccination due to patient refusal 10/08/2023 Has a number of non-scientific based beliefs which interfere with his understanding and acceptance of the medical benefit of vaccination. Nonrheumatic aortic valve stenosis 10/08/2023 Paroxysmal A-fib ([facility]) ([facility]) 08/18/2023 Tobacco abuse 10/08/2023 [2] Lidocaine, 1 [...] Date Acute renal failure (ARF) ([facility]) 10/19/2019 Anemia 12/30/2021 Calcification of abdominal aorta ([facility]) 10/08/202309/[address] abd Diverticulosis 10/08/2023 ESRD on hemodialysis ([facility]) ([facility]) 10/26/2019 Hemodialysis patient ([facility]) ([facility]) HTN (hypertension) 12/01/2022 Hypertension IgA nephropathy IgA nephropathy determined by biopsy of kidney 10/26/2019 Missed vaccination due to patient refusal 10/08/2023 Has a number of non-scientific based beliefs which interfere with his understanding and acceptance of the medical benefit of vaccination. Nonrheumatic aortic valve stenosis 10/08/2023 Paroxysmal A-fib ([facility]) ([facility]) 08/18/2023 Tobacco abuse 10/08/2023 Nephrology Progress Note [...] edema Data: Labs: Recent Labs 03/15/25 0434 03/16/255 03/17/25 004 WBC 6.7 7.0 6.7 HGB 9.2* 9.1* [...] sacral wound. Wellington Nicole MD' Please call [phone] or message me through Exaptive with any questions or concerns. [facility] Anticoagulation Management Service ([facility]) Inpatient Warfarin [...] Mireles RPh, PharmD [facility]JA is available daily [phone] via Y-Klub. If no response on Exaptive Chat then please page [phone]. [1] Past Medical History: Diagnosis Date Acute renal failure (ARF) ([facility]) 10/19/2019 Anemia 12/30/2021 Calcification of abdominal aorta ([facility]) 10/08/202309/[address] abd Diverticulosis 10/08/2023 ESRD on hemodialysis ([facility]) ([facility]) 10/26/2019 Hemodialysis patient ([facility]) ([facility]) HTN (hypertension) 12/01/2022 Hypertension IgA nephropathy IgA nephropathy determined by biopsy of kidney 10/26/2019 Missed vaccination due to patient refusal 10/08/2023 Has a number of non-scientific based beliefs which interfere with his understanding and acceptance of the medical benefit of vaccination. Nonrheumatic aortic valve stenosis 10/08/2023 Paroxysmal A-fib ([facility]) ([facility]) 08/18/2023 Tobacco abuse 10/08/2023 Images from the original note were not included. OCCUPATIONAL THERAPY [facility] Initial Evaluation Name/MRN: Jair Snyder ([id number]) Evaluation Date: 03/16/2025 Date of : 1965 Admission Date: 03/13/2025 8:18 AM Age: 59 y.o. [facility] Discharge Recommendation: Nursing Home Facility Assessment IMPRESSION: Pt presented with SOB, [...] Problem List Diagnosis Date Noted Moderate malnutrition ([facility]) ([facility]) 03/14/2025 SOB (shortness of breath) 03/13/2025 Severe malnutrition ([facility]) ([facility]) 02/21/2025 Hemoptysis 02/20/2025 Complication of tracheostomy ([facility]) ([facility]) 01/19/2025 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 01/12/2025 Acute respiratory failure with hypoxia ([facility]) [J96.01] 01/08/2025 Tracheostomy care ([facility]) [Z43.0] 01/08/2025 Pulmonary embolism ([facility]) 01/08/2025 Sacral osteomyelitis ([facility]) ([facility]) 01/03/2025 Pneumonia of both lungs due to methicillin susceptible Staphylococcus aureus (MSSA) ([facility]) 01/01/2025 Leukocytosis 12/30/2024 Decubitus ulcer of sacral region, unstageable ([facility]) 12/30/2024 Peritonitis due to fungus ([facility]) 11/30/2024 History of abdominal surgery 11/30/2024 Leg DVT (deep venous thromboembolism), acute, left ([facility]) 11/30/2024 Ischemic ulcer of toe of left foot, limited to breakdown of skin ([facility]) 11/30/2024 Tracheostomy dependence ([facility]) 11/30/2024 Pleural effusion 11/28/2024 Gastric ulceration 2024 Atrial flutter, unspecified type ([facility]) 10/03/2024 RSV (acute bronchiolitis due to respiratory syncytial virus) 10/03/2024 Diverticulosis 10/08/2023 Nonrheumatic aortic valve stenosis 10/08/2023 Calcification of abdominal aorta ([facility]) 10/08/2023 Missed vaccination due to patient refusal 10/08/2023 Tobacco abuse 10/08/2023 Alcohol use disorder in remission 10/08/2023 Paroxysmal A-fib ([facility]) ([facility]) 08/18/2023 HTN (hypertension) 12/01/2022 ESRD on hemodialysis ([facility]) ([facility]) 10/26/2019 IgA nephropathy determined by biopsy of kidney 10/26/2019 BRBPR (bright red blood per rectum) 01/19/2025 Aortic stenosis 10/03/2024 Upper GI bleed 10/03/2024 S/P AVR 10/03/2024 Acute hypoxic respiratory failure ([facility]) 10/03/2024 Acute encephalopathy 10/03/2024 Pneumoperitoneum 10/03/2024 Anemia [...] of Care supervision is transferred to a [facility] Therapy Services Occupational Therapist. Goals and/or treatment plan was established in collaboration with patient/family/other representatives. [1] Past Medical History: Diagnosis Date Acute renal failure (ARF) ([facility]) 10/19/2019 Anemia 12/30/2021 Calcification of abdominal aorta ([facility]) 10/08/202309/[address] abd Diverticulosis 10/08/2023 ESRD on hemodialysis ([facility]) ([facility]) 10/26/2019 Hemodialysis patient ([facility]) ([facility]) HTN (hypertension) 12/01/2022 Hypertension IgA nephropathy IgA [...] 10/09/2024 Performed by Bob Watson MD at [facility] Cardiac Cath/EP Lab CARDIAC CATHETERIZATION Bilateral 11/01/2024 Performed by Bob Watson MD at [facility] Cardiac Cath/EP Lab CARDIAC CATHETERIZATION N/A 11/01/2024 Performed by Bob Watson MD at [facility] Cardiac Cath/EP Lab COLONOSCOPY N/A 01/24/2025 Performed by Chadd Davis MD at [facility] ENDOSCOPY FISTULAGRAM (HISTORICAL) Left 09/15/2021 LEFT UPPER ARM HX AV FISTULA CREATION IR EMBOLIZATION 10/14/2024 IR EMBOLIZATION 10/14/2024 [facility] SPECIAL PROCEDURES IR FISTULAGRAM 08/07/2022 IR FISTULAGRAM 08/07/2022 [facility] IR IMAGING TONSILLECTOMY (HISTORICAL) Hospitalist Progress Note [...] Klebsiella pneumonia with lung abscess presented to [place] ED with worsening shortness of breath. He [...] from [facility] to [facility] due to bed availability Nephrology consulted, [...] MD Division of Hospital Medicine Inpatient Medical Services/[facility] [1] Past Medical History: Diagnosis Date Acute renal failure (ARF) ([facility]) 10/19/2019 Anemia 12/30/2021 Calcification of abdominal aorta ([facility]) 10/08/202309/[address] abd Diverticulosis 10/08/2023 ESRD on hemodialysis ([facility]) ([facility]) 10/26/2019 Hemodialysis patient ([facility]) ([facility]) HTN (hypertension) 12/01/2022 Hypertension IgA nephropathy IgA nephropathy determined by biopsy of kidney 10/26/2019 Missed vaccination due to patient refusal 10/08/2023 Has a number of non-scientific based beliefs which interfere with his understanding and acceptance of the medical benefit of vaccination. Nonrheumatic aortic valve stenosis 10/08/2023 Paroxysmal A-fib ([facility]) ([facility]) 08/18/2023 Tobacco abuse 10/08/2023 [2] Lidocaine, 1 [...] Date Acute renal failure (ARF) ([facility]) 10/19/2019 Anemia 12/30/2021 Calcification of abdominal aorta ([facility]) 10/08/202309/[address] abd Diverticulosis 10/08/2023 ESRD on hemodialysis ([facility]) ([facility]) 10/26/2019 Hemodialysis patient ([facility]) ([facility]) HTN (hypertension) 12/01/2022 Hypertension IgA nephropathy IgA nephropathy determined by biopsy of kidney 10/26/2019 Missed vaccination due to patient refusal 10/08/2023 Has a number of non-scientific based beliefs which interfere with his understanding and acceptance of the medical benefit of vaccination. Nonrheumatic aortic valve stenosis 10/08/2023 Paroxysmal A-fib ([facility]) ([facility]) 08/18/2023 Tobacco abuse 10/08/2023 Nephrology Progress Note [...] any questions or concerns Bree Molina APRN HAZARDOUS MATERIALS WASTE TECHNICIAN A-G PLASTIC BUBBLE PACKER [facility] [phone] Pt seen and examined independently by me. I reviewed with CONTINUOUS MINER OPERATOR HELPER-HAZARDOUS MATERIALS WASTE TECHNICIAN the medical history and the findings on physical examination. I discussed the patient s diagnosis and concur with the treatment plan as documented in his note. Please call [phone] or message me through Exaptive with any questions or concerns. Images from the original note were not included. [facility] Wound VAC Progress Note Jun Snyder [...] pain with IV pain medication, per staff climate scientist, prior to wound VAC dressing change. 1 [...] apply Betadine and allow to dry, leave LIVESTOCK HAULIER daily and PRN Centrella Pro Plus bed Reposition q2hrs Incontinent checks q2hrs Nutritional support Wound Care to follow Recommend to follow up at [facility] wound care center after hospital discharge. Any questions or concerns please secure chat "[facility] wound/ostomy". Thank you for the [...] Date Acute renal failure (ARF) ([facility]) 10/19/2019 Anemia 12/30/2021 Calcification of abdominal aorta ([facility]) 10/08/202309/[address] abd Diverticulosis 10/08/2023 ESRD on hemodialysis ([facility]) ([facility]) 10/26/2019 Hemodialysis patient ([facility]) ([facility]) HTN (hypertension) 12/01/2022 Hypertension IgA nephropathy IgA nephropathy determined by biopsy of kidney 10/26/2019 Missed vaccination due to patient refusal 10/08/2023 Has a number of non-scientific based beliefs which interfere with his understanding and acceptance of the medical benefit of vaccination. Nonrheumatic aortic valve stenosis 10/08/2023 Paroxysmal A-fib ([facility]) ([facility]) 08/18/2023 Tobacco abuse 10/08/2023 [2] Past Surgical History: Procedure Laterality Date APPENDECTOMY CARDIAC CATHETERIZATION N/A 10/09/2024 Performed by Bob Watson MD at [facility] Cardiac Cath/EP Lab CARDIAC CATHETERIZATION Bilateral 11/01/2024 Performed by Bob Watson MD at [facility] Cardiac Cath/EP Lab CARDIAC CATHETERIZATION N/A 11/01/2024 Performed by Bob Watson MD at [facility] Cardiac Cath/EP Lab COLONOSCOPY N/A 01/24/2025 Performed by Chadd Davis MD at [facility] ENDOSCOPY FISTULAGRAM (HISTORICAL) Left 09/15/2021 LEFT UPPER ARM HX AV FISTULA CREATION IR EMBOLIZATION 10/14/2024 IR EMBOLIZATION 10/14/2024 [facility] SPECIAL PROCEDURES IR FISTULAGRAM 08/07/2022 [...] Gill DO at 03/19/2025 4:44 PM EDT [facility] Anticoagulation Management Service ([facility]) Inpatient Warfarin Consult HPI: Jun Snyder is a 59 y.o. male admitted on 03/13/2025 for SOB (shortness of breath) [R06.02] Medical History[1] Patient is on warfarin for Heart Valve Replacement and has a goal INR 2.0 - 3.0. Warfarin is currently managed by SNF, will be followed by [facility] after return to home. Pt's home [...] dose accordingly 3. Will facilitate f/u at [facility] upon discharge Kvng Dugan PharmD 2024 Candidate [facility] is available daily [phone] via Y-Klub. If no response on Exaptive Chat then please page [phone]. [1] Past Medical History: Diagnosis Date Acute renal failure (ARF) ([facility]) 10/19/2019 Anemia 12/30/2021 Calcification of abdominal aorta ([facility]) 10/08/202309/[address] abd Diverticulosis 10/08/2023 ESRD on hemodialysis ([facility]) ([facility]) 10/26/2019 Hemodialysis patient ([facility]) ([facility]) HTN (hypertension) 12/01/2022 Hypertension IgA nephropathy IgA nephropathy determined by biopsy of kidney 10/26/2019 Missed vaccination due to patient refusal 10/08/2023 Has a number of non-scientific based beliefs which interfere with his understanding and acceptance of the medical benefit of vaccination. Nonrheumatic aortic valve stenosis 10/08/2023 Paroxysmal A-fib ([facility]) ([facility]) 08/18/2023 Tobacco abuse 10/08/2023 Cosigned by Tiffanie [...] Klebsiella pneumonia with lung abscess presented to [place] ED with worsening shortness of breath. He [...] in upper abdomen He was transferred from [place] ED to [facility] due to bed availability Nephrology consulted, [...] MD Division of Hospital Medicine Inpatient Medical Services/[facility] [1] Past Medical History: Diagnosis Date Acute renal failure (ARF) ([facility]) 10/19/2019 Anemia 12/30/2021 Calcification of abdominal aorta ([facility]) 10/08/202309/[address] abd Diverticulosis 10/08/2023 ESRD on hemodialysis ([facility]) ([facility]) 10/26/2019 Hemodialysis patient ([facility]) ([facility]) HTN (hypertension) 12/01/2022 Hypertension IgA nephropathy IgA nephropathy determined by biopsy of kidney 10/26/2019 Missed vaccination due to patient refusal 10/08/2023 Has a number of non-scientific based beliefs which interfere with his understanding and acceptance of the medical benefit of vaccination. Nonrheumatic aortic valve stenosis 10/08/2023 Paroxysmal A-fib ([facility]) ([facility]) 08/18/2023 Tobacco abuse 10/08/2023 [2] Lidocaine, 1 [...] Date Acute renal failure (ARF) ([facility]) 10/19/2019 Anemia 12/30/2021 Calcification of abdominal aorta ([facility]) 10/08/202309/[address] abd Diverticulosis 10/08/2023 ESRD on hemodialysis ([facility]) ([facility]) 10/26/2019 Hemodialysis patient ([facility]) ([facility]) HTN (hypertension) 12/01/2022 Hypertension IgA nephropathy IgA nephropathy determined by biopsy of kidney 10/26/2019 Missed vaccination due to patient refusal 10/08/2023 Has a number of non-scientific based beliefs which interfere with his understanding and acceptance of the medical benefit of vaccination. Nonrheumatic aortic valve stenosis 10/08/2023 Paroxysmal A-fib ([facility]) ([facility]) 08/18/2023 Tobacco abuse 10/08/2023 Nephrology Progress Note [...] any questions or concerns Bree Molina APRN HAZARDOUS MATERIALS WASTE TECHNICIAN A-G PLASTIC BUBBLE PACKER [facility] [phone] Pt seen and examined independently by me. I reviewed with CONTINUOUS MINER OPERATOR HELPER-HAZARDOUS MATERIALS WASTE TECHNICIAN the medical history and the findings on physical examination. I discussed the patient s diagnosis and concur with the treatment plan as documented in his note. Please call [phone] or message me through Exaptive with any questions or concerns. [facility] [...] dose accordingly 3. Will facilitate f/u at [facility] upon discharge Kvng Dugan PharmD 2024 Candidate [facility] is available daily [phone] via Y-Klub. If no response on Exaptive Chat then please page [phone]. [1] Past Medical History: Diagnosis Date Acute renal failure (ARF) ([facility]) 10/19/2019 Anemia 12/30/2021 Calcification of abdominal aorta ([facility]) 10/08/202309/[address] abd Diverticulosis 10/08/2023 ESRD on hemodialysis ([facility]) ([facility]) 10/26/2019 Hemodialysis patient ([facility]) ([facility]) HTN (hypertension) 12/01/2022 Hypertension IgA nephropathy IgA nephropathy determined by biopsy of kidney 10/26/2019 Missed vaccination due to patient refusal 10/08/2023 Has a number of non-scientific based beliefs which interfere with his understanding and acceptance of the medical benefit of vaccination. Nonrheumatic aortic valve stenosis 10/08/2023 Paroxysmal A-fib ([facility]) ([facility]) 08/18/2023 Tobacco abuse 10/08/2023 Cosigned by Tiffanie Dial RPh at 03/15/2025 1:17 PM EDT Images from the original note were not included. [facility] Wound VAC Progress Note Jun Gurrolaihan AGE: 59 y.o. GENDER: male : 1965 [...] to follow Recommend to follow up at [facility] wound care center after hospital discharge. [...] CT abd Diverticulosis 10/08/2023 ESRD on hemodialysis ([facility]) ([facility]) 10/26/2019 Hemodialysis patient ([facility]) ([facility]) HTN (hypertension) 12/01/2022 Hypertension IgA nephropathy IgA nephropathy determined by biopsy of kidney 10/26/2019 Missed vaccination due to patient refusal 10/08/2023 Has a number of non-scientific based beliefs which interfere with his understanding and acceptance of the medical benefit of vaccination. Nonrheumatic aortic valve stenosis 10/08/2023 Paroxysmal A-fib ([facility]) ([facility]) 08/18/2023 Tobacco abuse 10/08/2023 [2] Past Surgical History: Procedure Laterality Date APPENDECTOMY CARDIAC CATHETERIZATION N/A 10/09/2024 Performed by Bob Watson MD at [facility] Cardiac Cath/EP Lab CARDIAC CATHETERIZATION Bilateral 11/01/2024 Performed by Bob Watson MD at [facility] Cardiac Cath/EP Lab CARDIAC CATHETERIZATION N/A 11/01/2024 Performed by Bob Watson MD at [facility] Cardiac Cath/EP Lab COLONOSCOPY N/A 01/24/2025 Performed by Chadd Davis MD at [facility] ENDOSCOPY FISTULAGRAM (HISTORICAL) Left 09/15/2021 LEFT UPPER ARM HX AV FISTULA CREATION IR EMBOLIZATION 10/14/2024 IR EMBOLIZATION 10/14/2024 [facility] SPECIAL PROCEDURES IR FISTULAGRAM 08/07/2022 [...] original note were not included. PHYSICAL THERAPY [facility] Initial Evaluation Name/MRN: Jair Snyder ([id number]) Evaluation Date: 03/14/2025 Date of : 1965 Admission Date: 03/13/2025 8:18 AM Age: 59 y.o. [facility] Discharge Recommendation: Nursing Home Facility Equipment Needed: No Assessment IMPRESSION: Pt [...] (shortness of breath) 03/13/2025 Severe malnutrition (CMS/HCC) (HCC) 02/21/2025 Hemoptysis 02/20/2025 Complication of tracheostomy ([facility]) ([facility]) 01/19/2025 [facility] (current) use of antibiotics 01/12/2025 Acute respiratory failure with hypoxia ([facility]) [J96.01] 01/08/2025 Tracheostomy care ([facility]) [Z43.0] 01/08/2025 Pulmonary embolism ([facility]) 01/08/2025 Sacral osteomyelitis ([facility]) ([facility]) 01/03/2025 Pneumonia of both lungs due to methicillin susceptible Staphylococcus aureus (MSSA) ([facility]) 01/01/2025 Leukocytosis 12/30/2024 Decubitus ulcer of sacral region, unstageable ([facility]) 12/30/2024 Peritonitis due to fungus ([facility]) 11/30/2024 History of abdominal surgery 11/30/2024 Leg DVT (deep venous thromboembolism), acute, left ([facility]) 11/30/2024 Ischemic ulcer of toe of left foot, limited to breakdown of skin ([facility]) 11/30/2024 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[facility]) 11/30/2024 Pleural effusion 11/28/2024 Gastric ulceration 2024 Atrial flutter, unspecified type ([facility]) 10/03/2024 RSV (acute bronchiolitis due to respiratory syncytial virus) 10/03/2024 Diverticulosis 10/08/2023 Nonrheumatic aortic valve stenosis 10/08/2023 Calcification of abdominal aorta ([facility]) 10/08/2023 Missed vaccination due to patient refusal 10/08/2023 Tobacco abuse 10/08/2023 Alcohol use disorder in remission 10/08/2023 Paroxysmal A-fib ([facility]) ([facility]) 08/18/2023 HTN (hypertension) 12/01/2022 ESRD on hemodialysis ([facility]) ([facility]) 10/26/2019 IgA nephropathy determined by biopsy of kidney 10/26/2019 BRBPR (bright red blood per rectum) 01/19/2025 Aortic stenosis 10/03/2024 Upper GI bleed 10/03/2024 S/P AVR 10/03/2024 Acute hypoxic respiratory failure ([facility]) 10/03/2024 Acute encephalopathy 10/03/2024 Pneumoperitoneum 10/03/2024 Anemia [...] awareness. Social/Functional History Pt has been at [facility] for rehab for the past ~1 [...] of Care supervision is transferred to a [facility] Physical Therapist. Goals and/or treatment plan was established in collaboration with patient/family/other representatives. [1] Past Medical History: Diagnosis Date Acute renal failure (ARF) ([facility]) 10/19/2019 Anemia 12/30/2021 Calcification of abdominal aorta ([facility]) 10/08/202309/[address] abd Diverticulosis 10/08/2023 ESRD on hemodialysis ([facility]) ([facility]) 10/26/2019 Hemodialysis patient ([facility]) ([facility]) HTN (hypertension) 12/01/2022 Hypertension IgA nephropathy IgA nephropathy determined by biopsy of kidney 10/26/2019 Missed vaccination due to patient refusal 10/08/2023 Has a number of non-scientific based beliefs which interfere with his understanding and acceptance of the medical benefit of vaccination. Nonrheumatic aortic valve stenosis 10/08/2023 Paroxysmal A-fib ([facility]) ([facility]) 08/18/2023 Tobacco abuse 10/08/2023 [2] Past Surgical History: Procedure Laterality Date APPENDECTOMY CARDIAC CATHETERIZATION N/A 10/09/2024 Performed by Bob Watson MD at [facility] Cardiac Cath/EP Lab CARDIAC CATHETERIZATION Bilateral 11/01/2024 Performed by Bob Watson MD at [facility] Cardiac Cath/EP Lab CARDIAC CATHETERIZATION N/A 11/01/2024 Performed by Bob Watson MD at [facility] Cardiac Cath/EP Lab COLONOSCOPY N/A 01/24/2025 Performed by Chadd Davis MD at [facility] ENDOSCOPY FISTULAGRAM (HISTORICAL) Left 09/15/2021 LEFT UPPER ARM HX AV FISTULA CREATION IR EMBOLIZATION 10/14/2024 IR EMBOLIZATION 10/14/2024 [facility] SPECIAL PROCEDURES IR FISTULAGRAM 08/07/2022 IR FISTULAGRAM 08/07/2022 [facility] IR IMAGING TONSILLECTOMY (HISTORICAL) Hospitalist Progress Note [...] Klebsiella pneumonia with lung abscess presented to [place] ED with worsening shortness of breath. He [...] from [facility] to [facility] due to bed availability Nephrology consulted, [...] MD Division of Hospital Medicine Inpatient Medical Services/[facility] [1] Past Medical History: Diagnosis Date Acute renal failure (ARF) ([facility]) 10/19/2019 Anemia 12/30/2021 Calcification of abdominal aorta ([facility]) 10/08/202309/[address] abd Diverticulosis 10/08/2023 ESRD on hemodialysis ([facility]) ([facility]) 10/26/2019 Hemodialysis patient ([facility]) ([facility]) HTN (hypertension) 12/01/2022 Hypertension IgA nephropathy IgA nephropathy determined by biopsy of kidney 10/26/2019 Missed vaccination due to patient refusal 10/08/2023 Has a number of non-scientific based beliefs which interfere with his understanding and acceptance of the medical benefit of vaccination. Nonrheumatic aortic valve stenosis 10/08/2023 Paroxysmal A-fib ([facility]) ([facility]) 08/18/2023 Tobacco abuse 10/08/2023 [2] Lidocaine, 1 [...] Date Acute renal failure (ARF) ([facility]) 10/19/2019 Anemia 12/30/2021 Calcification of abdominal aorta ([facility]) 10/08/202309/[address] abd Diverticulosis 10/08/2023 ESRD on hemodialysis ([facility]) ([facility]) 10/26/2019 Hemodialysis patient ([facility]) ([facility]) HTN (hypertension) 12/01/2022 Hypertension IgA nephropathy IgA nephropathy determined by biopsy of kidney 10/26/2019 Missed vaccination due to patient refusal 10/08/2023 Has a number of non-scientific based beliefs which interfere with his understanding and acceptance of the medical benefit of vaccination. Nonrheumatic aortic valve stenosis 10/08/2023 Paroxysmal A-fib ([facility]) ([facility]) 08/18/2023 Tobacco abuse 10/08/2023 [facility] Anticoagulation Management Service ([facility]) Inpatient Warfarin [...] dose accordingly 3. Will facilitate f/u at [facility] upon discharge Tiffanie Dial RPh, PharmD [facility] is available daily [phone] via Exaptive Chat. If no response on Epic Chat then please page [phone]. [1] Past Medical History: Diagnosis Date Acute renal failure (ARF) ([facility]) 10/19/2019 Anemia 12/30/2021 Calcification of abdominal aorta ([facility]) 10/08/202309/[address] abd Diverticulosis 10/08/2023 ESRD on hemodialysis ([facility]) ([facility]) 10/26/2019 Hemodialysis patient ([facility]) ([facility]) HTN (hypertension) 12/01/2022 Hypertension IgA nephropathy IgA nephropathy determined by biopsy of kidney 10/26/2019 Missed vaccination due to patient refusal 10/08/2023 Has a number of non-scientific based beliefs which interfere with his understanding and acceptance of the medical benefit of vaccination. Nonrheumatic aortic valve stenosis 10/08/2023 Paroxysmal A-fib ([facility]) ([facility]) 08/18/2023 Tobacco abuse 10/08/2023 documented in this encounter [facility] 03-21-2025 Note Formatting of this n [...] Length of Stay (Days): 8 GMLOS: 3.9 [facility] 03-21-2025 Note Formatting of this n [...] of Stay (Days): 8 GMLOS: 3.9 T [facility] 03-21-2025 Plan of care note Problem: [...] and maintained or improved Outcome: Progressing T [facility] 03-20-2025 Nurse Note Patient Name: Jun Snyder Patient : 1965 Acct: [id number] Date of Admission: 03/13/2025 [facility] Code Status: Full Code Allergies: Allergies[1] Diagnosis: Problem List[2] Treatment: Hemodilaysis 2:1 Priority: Routine Location: Acute Room Diabetic: No NPO: No Isolation Precautions: Dialysis Consent for Treatment Verified: Yes Blood Consent Verified: Not Applicable ICEBOAT: Identify, Consent, Equipment, HepB Status, Orders Complete, Access Verified, Timeliness (o2 aqnd suction functional @ bedside) Second Clinician Verifying: W. Styeinlechenr, RN Time out performed prior to access [...] - Before each treatment: Dialysis Machine No.: [id number] RO Machine Number: [id number] Dialyzer Lot No.: [id number] Tubing Lot Number: [id number] [employer] Secure: Yes Venous Parameters Set: Yes Arterial Parameters Set: Yes NS Bag: Yes Saline Line Double Clamped: Yes Dialyzer: Nipro Prime Volume (mL): 200 mL RO Machine Number: [id number] RO Machine Log Sheet Completed: Yes Machine Alarm Self Test: Completed, Passed (03/20/25 1145) Air Foam Detector: Tested, Proper Function, pH Reading Extracorporeal Circuit Tested for Integrity: Yes Machine Conductivity: 13.8 Manual Conductivity: 13.8 Manual Ph: 7 Bleach Test (Neg): Yes Bath Temperature: 36 C (96.8 F) Conductivity Meter Serial #: [id number] Machine Functioning Alarm Free? Yes Dialysis Bath: [...] Diagnosis Anemia Paroxysmal A-fib ([facility]) ([facility]) HTN (hypertension) ESRD on hemodialysis ([facility]) ([facility]) IgA nephropathy determined by biopsy of kidney Diverticulosis Nonrheumatic aortic valve stenosis Calcification of abdominal aorta ([facility]) Missed vaccination due to patient refusal Tobacco abuse Alcohol use disorder in remission Atrial flutter, unspecified type ([facility]) RSV (acute bronchiolitis due to respiratory syncytial virus) Aortic stenosis Upper GI bleed S/P AVR Acute hypoxic respiratory failure ([facility]) Acute encephalopathy Pneumoperitoneum Gastric ulceration Severe malnutrition ([facility]) ([facility]) Pleural effusion Peritonitis due to fungus ([facility]) History of abdominal surgery Leg DVT (deep venous thromboembolism), acute, left ([facility]) Ischemic ulcer of toe of left foot, limited to breakdown of skin ([facility]) Tracheostomy dependence ([facility]) Leukocytosis Decubitus ulcer of sacral region, unstageable ([facility]) Pneumonia of both lungs due to methicillin susceptible Staphylococcus aureus (MSSA) ([facility]) Sacral osteomyelitis ([facility] [place]) (HCC) Acute respiratory failure with hypoxia ([facility]) [J96.01] Tracheostomy care ([facility] [place]) [Z43.0] Pulmonary embolism ([facility] [place]) 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 Care Management Progress Note Short Medical why still here: Heparin gtt bridging to Coumadin. INR 1.9 today Planned Discharge Dis[facility] Care Barriers/Today we still Wait: Clinical stability Length of Stay (Days): 7 GMLOS: 3.9 [facility] 03-20-2025 Note Formatting of this n ote might be different from the original. Care Management Progress Note Short Medical why still here: Heparin gtt bridging to Coumadin. INR 1.9 today Planned Discharge Disposition: [facility]idential Care Barriers/Today we still Wait: Clinical stability Length of Stay (Days): 7 GMLOS: 3.9 [facility] 03-20-2025 Plan of care note [...] and maintained or improved Outcome: Progressing T [facility] 03-19-2025 Note Formatting of this n ote might be different from the original. Care Management Progress Note Continues on a Heparin gtt. Trying to bridge to Coumadin. INR 1.6 today. When stable plan is to return to [facility].. . Length of Stay (Days): 6 GMLOS: 3.9 T [facility] 03-19-2025 Note Formatting of this n ote might be different from the original. Care Management Progress Note Continues on a Heparin gtt. Trying to bridge to Coumadin. INR 1.6 today. When stable plan is to return to [facility].. . Length of Stay (Days): 6 GMLOS: 3.9 [facility] 03-19-2025 Plan of care note [...] and maintained or improved Outcome: Progressing T [facility] 03-19-2025 Plan of care note Problem: [...] monitored and maintained or improved Outcome: Progressing [facility] 03-19-2025 Nurse Note Wound vac suction failing-pt requesting wound vac removed for now. Black foam dressing removed and wound packed with saline-soaked gauze covered with DSD [facility] 03-19-2025 Nurse Note Pt adamantly refusing telemetry at this time, ripped off monitor and threw to the floor [facility] 03-18-2025 Note Problem: Pain - Adul t Goal: Verbalizes/displays adequate comfort level or baseline comfort level Outcome: Progressing Problem: Safety - Adult Goal: Free from fall injury Outcome: Progressing [facility] 03-18-2025 Plan of care note Problem: Pain - Adult Goal: Verbalizes/displays adequate comfort level or baseline comfort level Outcome: Progressing Problem: Safety - Adult Goal: Free from fall injury Outcome: Progressing [facility] 03-17-2025 Plan of care note Problem: [...] monitored and maintained or improved Outcome: Progressing [facility] 03-17-2025 Note Problem: Pain - Adul t Goal: Verbalizes/displays adequate comfort level or baseline comfort level Outcome: Progressing Problem: Safety - Adult Goal: Free from fall injury Outcome: Progressing [facility] 03-17-2025 Plan of care note Problem: Pain - Adult Goal: Verbalizes/displays adequate comfort level or baseline comfort level Outcome: Progressing Problem: Safety - Adult Goal: Free from fall injury Outcome: Progressing [facility] 03-17-2025 Nurse Note Patient Name: Jun Snyder Patient : 1965 Acct: [id number] Date of Admission: 03/13/2025 [facility] Code Status: Full Code Allergies: [...] - Before each treatment: Dialysis Machine No.: [id number] RO Machine Number: [id number] Dialyzer Lot No.: [id number] Tubing Lot Number: [id number] All Connections Secure: Yes Venous Parameters Set: Yes Arterial Parameters Set: Yes NS Bag: Yes Saline Line Double Clamped: Yes Dialyzer: Nipro Prime Volume (mL): 200 mL RO Machine Number: [id number] RO Machine Log Sheet Completed: Yes Machine Alarm Self Test: Completed, Passed (03/17/25 0803) Air Foam Detector: Tested, Proper Function, pH Reading Extracorporeal Circuit Tested for Integrity: Yes Machine Conductivity: 13.6 Manual Conductivity: 13.6 Manual Ph: 7 Bleach Test (Neg): Yes Bath Temperature: 36 C (96.8 F) Conductivity Meter Serial #: [id number] Machine Functioning Alarm Free? Yes Dialysis Bath: [...] Diagnosis Anemia Paroxysmal A-fib ([facility] [place]) ([facility] [place]) HTN (hypertension) ESRD on hemodialysis ([facility] [place]) ([facility] [place]) IgA nephropathy determined by biopsy of kidney Diverticulosis Nonrheumatic aortic valve stenosis Calcification of abdominal aorta ([facility] [place]) Missed vaccination due to patient refusal Tobacco abuse Alcohol use disorder in remission Atrial flutter, unspecified type ([facility] [place]) RSV (acute bronchiolitis due to respiratory syncytial virus) Aortic stenosis Upper GI bleed S/P AVR Acute hypoxic respiratory failure ([facility] [place]) Acute encephalopathy Pneumoperitoneum Gastric ulceration Severe malnutrition [...] Acute respiratory failure with hypoxia ([facility] [place]) [J96.01] Tracheostomy care ([facility] [place]) [Z43.0] Pulmonary embolism (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 Complication of tracheostomy (CMS/HCC) ([facility] [place]) BRBPR (bright red blood per rectum) Hemoptysis SOB (shortness of breath) Moderate malnutrition (CMS/HCC) ([facility] [place]) [3] heparin, 5-30 Units/kg/hr T [facility] 03-16-2025 Plan of care note Problem: Knowledge Deficit Goal: Patient/family/caregiver demonstrates understanding of disease process, treatment plan, medications, and discharge instructions Outcome: Progressing Problem: Potential for Compromised Skin Integrity Goal: Nutritional status is improving Outcome: Progressing [facility] 03-16-2025 Plan of care note Problem: [...] Interventions Goal: Assess Nutritional Intake Outcome: Progressing [facility] 03-16-2025 Note Formatting of this n ote might be different from the original. Care Management Progress Note Going to dialysis today. Refusing surgery for gangrenous toes. Anticipate discharge back to [facility] soon. . Length of Stay (Days): 3 GMLOS: 3.9 T [facility] 03-16-2025 Note Formatting of this n ote might be different from the original. Care Management Progress Note Going to dialysis today. Refusing surgery for gangrenous toes. Anticipate discharge back to [facility] soon. . Length of Stay (Days): 3 GMLOS: 3.9 [facility] 03-16-2025 Note Care Management Prog ress Note Going to dialysis today. Refusing surgery for gangrenous toes. Anticipate discharge back to [facility] soon. . Length of Stay (Days): 3 GMLOS: 3.9 [facility] 03-15-2025 Note Formatting of this n ote might be different from the original. ELIA reviewed chart. Copy of DPOA found in electronic chart naming Omar connell as agent. Care Management Return to Hospital Readmission questionnaire- N/A- pt form [facility]. [facility] 03-15-2025 Note Formatting of this n ote might be different from the original. ELIA reviewed chart. Copy of DPOA found in electronic chart naming Omar connell as agent. Care Management Return to Hospital Readmission questionnaire- N/A- pt form [facility]. [facility] 03-15-2025 Note ELIA reviewed chart. Copy of DPOA found in electronic chart naming ko Omar as agent. Care Management Return to Hospital Readmission questionnaire- N/A- pt form [facility]. [facility] 03-15-2025 Consult note Associated Order (s): Inpatient consult to Vascular Surgery--[facility]; Gangrenous toes noted on first 4 toes on left lower extremity, please evaluate Images from the original note were not included. Inpatient consult to Vascular Surgery--[facility]; Gangrenous toes noted on first 4 toes [...] 0 min Stress: Stress Concern Present (02/21/2025) [facility] - Occupational Stress Questionnaire Feeling of Stress : To some extent Social Connections: Unknown (02/21/2025) Social Connection and Isolation Panel [NHANES] Frequency of Communication with Friends and Family: More than three times a week Frequency of Social Gatherings with Friends and Family: Patient declined Attends Confucianist Services: Patient declined Active Member of Clubs [...] Department of Surgery General Surgery Resident Pager: [phone] PAGING / Exaptive Secure Chat: From 6a-6p (- weekends): Exaptive Secure Chat (FIRST) or Pager above (EMERGENT/Second) From 6p-6a (-s): Find resident physician under [facility] Surgery - General - Surgical [...] This note may have been dictated using Dragon Medical Practice Edition and/or PresentationTube Voice Recognition Feature. The document was proofread; however, unrecognized voice recognition nanoelectronics engineer errors may be present. [1] Past Medical History: Diagnosis Date Acute renal failure (ARF) ([facility] [place]) 10/19/2019 Anemia 12/30/2021 Calcification of abdominal aorta ([facility] [place]) 10/08/202309/[address] abd Diverticulosis 10/08/2023 ESRD on hemodialysis ([facility] [place]) ([facility] [place]) 10/26/2019 Hemodialysis patient ([facility] ([facility] [place]) HTN (hypertension) 12/01/2022 Hypertension IgA nephropathy IgA nephropathy determined by biopsy of kidney 10/26/2019 Missed vaccination due to patient refusal 10/08/2023 Has a number of non-scientific based beliefs which interfere with his understanding and acceptance of the medical benefit of vaccination. Nonrheumatic aortic valve stenosis 10/08/2023 Paroxysmal A-fib ([facility] [place]) ([facility] [place]) 08/18/2023 Tobacco abuse 10/08/2023 [2] Past Surgical History: Procedure Laterality Date APPENDECTOMY CARDIAC CATHETERIZATION N/A 10/09/2024 Performed by Bob Watson MD at [facility] Cardiac Cath/EP Lab CARDIAC CATHETERIZATION Bilateral 11/01/2024 Performed by Bob Watson MD at [facility] Cardiac Cath/EP Lab CARDIAC CATHETERIZATION N/A 11/01/2024 Performed by Bob Watson MD at [facility] Cardiac Cath/EP Lab COLONOSCOPY N/A 01/24/2025 Performed by Chadd Davis MD at [facility] ENDOSCOPY FISTULAGRAM (HISTORICAL) Left 09/15/2021 LEFT UPPER ARM HX AV FISTULA CREATION IR EMBOLIZATION 10/14/2024 IR EMBOLIZATION 10/14/2024 [facility] SPECIAL PROCEDURES IR FISTULAGRAM 08/07/2022 IR FISTULAGRAM 08/07/2022 [facility] IR IMAGING TONSILLECTOMY (HISTORICAL) [3] [4] PRN [...] planning if and when patient is willing. [place] Phone: 03-15-2025 Consult note Associated Order (s): [...] 0 min Stress: Stress Concern Present (02/21/2025) [facility] - Occupational Stress Questionnaire Feeling of Stress : To some extent Social Connections: Unknown (02/21/2025) Social Connection and Isolation Panel [NHANES] Frequency of Communication with Friends and Family: More than three times a week Frequency of Social Gatherings with Friends and Family: Patient declined Attends Confucianist Services: Patient declined Active Member of Clubs [...] Department of Surgery General Surgery Resident Pager: [phone] FootmarksING / Exaptive Secure Chat: From 6a-6p (6a-10a weekends): Exaptive Secure Chat (FIRST) or Pager above (EMERGENT/Second) From 6p-6a (-s): Find resident physician under [facility] Surgery - General - Surgical [...] This note may have been dictated using Fiberspar Practice Edition and/or PresentationTube Voice Recognition Feature. The document was proofread; however, unrecognized voice recognition nanoelectronics engineer errors may be present. [1] Past Medical History: Diagnosis Date Acute renal failure (ARF) ([facility] [place]) 10/19/2019 Anemia 12/30/2021 Calcification of abdominal aorta ([facility] [place]) 10/08/202309/[address] abd Diverticulosis 10/08/2023 ESRD on hemodialysis ([facility]) ([facility] [place]) 10/26/2019 Hemodialysis patient ([facility]) ([facility] [place]) HTN (hypertension) 12/01/2022 Hypertension IgA nephropathy IgA nephropathy determined by biopsy of kidney 10/26/2019 Missed vaccination due to patient refusal 10/08/2023 Has a number of non-scientific based beliefs which interfere with his understanding and acceptance of the medical benefit of vaccination. Nonrheumatic aortic valve stenosis 10/08/2023 Paroxysmal A-fib ([facility] [place]) ([facility] [place]) 08/18/2023 Tobacco abuse 10/08/2023 [2] Past Surgical History: Procedure Laterality Date APPENDECTOMY CARDIAC CATHETERIZATION N/A 10/09/2024 Performed by Bob Watson MD at [facility] Cardiac Cath/EP Lab CARDIAC CATHETERIZATION Bilateral 11/01/2024 Performed by Bob Watson MD at [facility] Cardiac Cath/EP Lab CARDIAC CATHETERIZATION N/A 11/01/2024 Performed by Bob Watson MD at [facility] Cardiac Cath/EP Lab COLONOSCOPY N/A 01/24/2025 Performed by Chadd Davis MD at [facility] ENDOSCOPY FISTULAGRAM (HISTORICAL) Left 09/15/2021 LEFT UPPER ARM HX AV FISTULA CREATION IR EMBOLIZATION 10/14/2024 IR EMBOLIZATION 10/14/2024 [facility] SPECIAL PROCEDURES IR FISTULAGRAM 08/07/2022 [...] Clinical Dietitian Contact: or Epic Chat (dial *[phone] from hospital phone) Associated Order(s): IP CONSULT [...] ascites and omental edema in upper abdomen.) Retail Banker Strength: Not Performed Chief Complaint Patient presents [...] On: Kcal/kg Weight Used for Energy Requirements: [place] Weight for Energy Calculation (kg): 75 kg Total Energy Requirements (kcals/day): 4821-2536 (25-30 kcals/kg) Weight Used for Protein Requirements: [place] Weight in Kg Used for Protein Requirements: [...] TSH 6.88 (H) 03/13/2025 FREET4 0.89 03/15/2025 [id number] 959 (H) 10/22/2019 FOLATE 9.2 10/22/2019 FERRITIN [...] for updated dry wt - per nephro) [place] Body Weight (lbs) (Calculated): 166 lbs [place] Body Weight (Kg) (Calculated): 75 kg % [place] Body Weight (Calculated): 88.6 % BMI (kg/m2) [...] Yasemin Jonescheco MS, RD, LD Contact: or Exaptive Chat (dial *[phone] from hospital phone) [1] Past Medical History: Diagnosis Date Acute renal failure (ARF) ([facility] [place]) 10/19/2019 Anemia 12/30/2021 Calcification of abdominal aorta ([facility] [place]) 10/08/202309/[address] abd Diverticulosis 10/08/2023 ESRD on hemodialysis ([facility] [place]) ([facility] [place]) 10/26/2019 Hemodialysis patient ([facility] [place]) ([facility] [place]) HTN (hypertension) 12/01/2022 Hypertension IgA nephropathy IgA [...] 10/09/2024 Performed by Bob Watson MD at [facility] Cardiac Cath/EP Lab CARDIAC CATHETERIZATION Bilateral 11/01/2024 Performed by Bob Watson MD at [facility] Cardiac Cath/EP Lab CARDIAC CATHETERIZATION N/A 11/01/2024 Performed by Bob Watson MD at [facility] Cardiac Cath/EP Lab COLONOSCOPY N/A 01/24/2025 Performed by Chadd Davis MD at [facility] ENDOSCOPY FISTULAGRAM (HISTORICAL) Left 09/15/2021 LEFT UPPER ARM HX AV FISTULA CREATION IR EMBOLIZATION 10/14/2024 IR EMBOLIZATION 10/14/2024 [facility] SPECIAL PROCEDURES IR FISTULAGRAM 08/07/2022 IR FISTULAGRAM 08/07/2022 [facility] IR IMAGING TONSILLECTOMY (HISTORICAL) [3] Lidocaine, 1 patch, Topical, Daily metoprolol tartrate, 25 mg, Oral, q6h pantoprazole, 40 mg, Oral, BID AC sevelamer carbonate, 800 mg, Oral, TID WC sodium zirconium cyclosilicate, 5 g, Oral, Daily warfarin, 2.5 mg, Oral, Once [4] [facility] Consult Note Consults MELO Ramirez is [...] 0 min Stress: Stress Concern Present (02/21/2025) [facility] [employer] - Occupational Stress Questionnaire Feeling of Stress : To some extent Social Connections: Unknown (02/21/2025) Social Connection and Isolation Panel [NHANES] Frequency of Communication with Friends and Family: More than three times a week Frequency of Social Gatherings with Friends and Family: Patient declined Attends Confucianist Services: Patient declined Active Member of Clubs [...] and sacral wound. Please message me through Little [employer] Bag chat with any questions or concerns. Wellington Nicole MD 03/14/2025 10:43 AM [facility] [address], [address] [place] [id number] Office: [phone] [1] Past Medical History: Diagnosis Date Acute renal failure (ARF) ([facility]) 10/19/2019 Anemia 12/30/2021 Calcification of abdominal aorta ([facility] [place]) 10/08/202309/[address] abd Diverticulosis 10/08/2023 ESRD on hemodialysis ([facility] [place]) ([facility] [place]) 10/26/2019 Hemodialysis patient ([facility]) ([facility] [place]) HTN (hypertension) 12/01/2022 Hypertension IgA nephropathy IgA nephropathy determined by biopsy of kidney 10/26/2019 Missed vaccination due to patient refusal 10/08/2023 Has a number of non-scientific based beliefs which interfere with his understanding and acceptance of the medical benefit of vaccination. Nonrheumatic aortic valve stenosis 10/08/2023 Paroxysmal A-fib ([facility] [place]) ([facility] [place]) 08/18/2023 Tobacco abuse 10/08/2023 [2] Family History [...] [id number] Associated Order(s): IP CONSULT TO CARDIOLOGY [facility] [place] [place]Electrophysiology Consult Note Reason for Consult/Chief Complaint: Volume overload, afib rvr Referring provider: Dr Kidd Established rn international: Dr Shah History of Present Illness: Jun [...] to select rehab. He recently was at [facility] for Klebsiella pneumonia, hemoptysis and [...] of Cardiovascular Disease, Division of Heart Failure [facility] 3:25 PM 03/14/25 Associated Order(s): INPATIENT CONSULT TO WOUND CARE PROVIDERS Images from the original note were not included. [facility] Wound VAC CONSULT Note Jun Snyder [...] to follow Recommend to follow up at [facility] wound care center after hospital discharge. [...] Date Acute renal failure (ARF) ([facility]) 10/19/2019 Anemia 12/30/2021 Calcification of abdominal aorta ([facility]) 10/08/202309/[address] abd Diverticulosis 10/08/2023 ESRD on hemodialysis ([facility]) ([facility]) 10/26/2019 Hemodialysis patient ([facility]) ([facility] [place]) HTN (hypertension) 12/01/2022 Hypertension IgA nephropathy IgA nephropathy determined by biopsy of kidney 10/26/2019 Missed vaccination due to patient refusal 10/08/2023 Has a number of non-scientific based beliefs which interfere with his understanding and acceptance of the medical benefit of vaccination. Nonrheumatic aortic valve stenosis 10/08/2023 Paroxysmal A-fib ([facility] [place]) ([facility] [place]) 08/18/2023 Tobacco abuse 10/08/2023 [2] Past Surgical History: Procedure Laterality Date APPENDECTOMY CARDIAC CATHETERIZATION N/A 10/09/2024 Performed by Bob Watson MD at [facility] Cardiac Cath/EP Lab CARDIAC CATHETERIZATION Bilateral 11/01/2024 Performed by Bob Watson MD at [facility] Cardiac Cath/EP Lab CARDIAC CATHETERIZATION N/A 11/01/2024 Performed by Bob Watson MD at [facility] Cardiac Cath/EP Lab COLONOSCOPY N/A 01/24/2025 Performed by Chadd Davis MD at [facility] ENDOSCOPY FISTULAGRAM (HISTORICAL) Left 09/15/2021 LEFT UPPER ARM HX AV FISTULA CREATION IR EMBOLIZATION 10/14/2024 IR EMBOLIZATION 10/14/2024 [facility] SPECIAL PROCEDURES IR FISTULAGRAM 08/07/2022 [...] 4:44 PM EDT documented in this encounter [facility] 03-15-2025 Note Patient currently of f unit, will attempt smoking cessation counseling at a later date. [facility] 03-15-2025 Nurse Note Patient Name: Jun Snyder Patient : 1965 Acct: [id number] Date of Admission: 03/13/2025 [facility] Code Status: Full Code Allergies: [...] - Before each treatment: Dialysis Machine No.: [id number] RO Machine Number: [id number] Dialyzer Lot No.: [id number] Tubing Lot Number: [id number] All Connections Secure: Yes Venous Parameters Set: Yes Arterial Parameters Set: Yes NS Bag: Yes Saline Line Double Clamped: Yes Dialyzer: Nipro Prime Volume (mL): 200 mL RO Machine Number: [id number] RO Machine Log Sheet Completed: Yes Machine Alarm Self Test: Completed, Passed (03/15/25 1215) Air Foam Detector: Tested, Proper Function, pH Reading Extracorporeal Circuit Tested for Integrity: Yes Machine Conductivity: 13.8 Manual Conductivity: 13.7 Manual Ph: 7 Bleach Test (Neg): Yes Bath Temperature: 36 C (96.8 F) Conductivity Meter Serial #: [id number] Machine Functioning Alarm Free? Yes Dialysis Bath: [...] Diagnosis Anemia Paroxysmal A-fib ([facility] [place]) ([facility]) HTN (hypertension) ESRD on hemodialysis ([facility] [place]) ([facility]) IgA nephropathy determined by biopsy of kidney Diverticulosis Nonrheumatic aortic valve stenosis Calcification of abdominal aorta ([facility]) Missed vaccination due to patient refusal Tobacco abuse Alcohol use disorder in remission Atrial flutter, unspecified type ([facility]) RSV (acute bronchiolitis due to respiratory syncytial virus) Aortic stenosis Upper GI bleed S/P AVR Acute hypoxic respiratory failure ([facility]) Acute encephalopathy Pneumoperitoneum Gastric ulceration Severe malnutrition ([facility] [place]) ([facility]) Pleural effusion Peritonitis due to fungus ([facility]) History of abdominal surgery Leg DVT (deep venous thromboembolism), acute, left ([facility]) Ischemic ulcer of toe of left foot, limited to breakdown of skin ([facility]) Tracheostomy dependence ([facility]) Leukocytosis Decubitus ulcer of sacral region, unstageable ([facility]) Pneumonia of both lungs due to methicillin susceptible Staphylococcus aureus (MSSA) ([facility] [place]) Sacral osteomyelitis ([facility] [place]) ([facility]) Acute respiratory failure with hypoxia ([facility]) [J96.01] Tracheostomy care ([facility]) [Z43.0] Pulmonary embolism ([facility]) MCFP (current) use of antibiotics Complication of tracheostomy ([facility] [place]) ([facility]) BRBPR (bright red blood per rectum) Hemoptysis SOB (shortness of breath) Moderate malnutrition (CMS/HCC) (HCC) [3] [facility] 03-15-2025 Consult note Associated Order (s): IP CONSULT TO DIETITIAN See dietitian eval dated 03/14/25. Pt tolerating diet well, was started on ensure plus HP BID during admission. Will continue to monitor labs, meds, po intakes and/or enteral nutrition tolerance, skin integrity, wt trends, and overall nutrition status - RD to follow weekly Yasemin Ceron MS, RD, LD Clinical Dietitian Contact: or Exaptive Chat (dial *[phone] from hospital phone) [facility] [place] [facility] Plan of care note Problem: [...] Interventions Goal: Assess Nutritional Intake Outcome: Progressing [facility] 03-15-2025 Note Formatting of this n ote might be different from the original. Care Management Progress Note Cardiology following. Pt in A flutter, trying rate control. Has wound vac on sacral area. Pt is refusing surgery. When stable is a bed hold at [facility]. . Length of Stay (Days): 2 GMLOS: No GMLOS Documented [facility] 03-15-2025 Note Formatting of this n ote might be different from the original. Care Management Progress Note Cardiology following. Pt in A flutter, trying rate control. Has wound vac on sacral area. Pt is refusing surgery. When stable is a bed hold at [facility]. . Length of Stay (Days): 2 GMLOS: No GMLOS Documented T [facility] 03-15-2025 Nurse Note Wound Care consulted for Pressure Injury Prevention. Pt's Kee score= 14 on 03/13 Pt's pressure points assessed. Pt's Heels, Back, Elbows, Occiput and ears all intact. [place] and healed area noted to occiput. Pt moving lower extremities well in bed against gravity. Pt currently followed by Wound PLASTIC BUBBLE PACKER group for wounds to left toes 1-4 and sacrum with wound vac in place. For left toes, sacrum, and sacral wound vac assessments and treatment plan, please see Wound/Ostomy PLASTIC BUBBLE PACKER progress notes. Instructed pt on pressure injury prevention and importance of turning/postioning every 2hrs while in bed and every 15 min while sitting in chair. Instructed on use and care of waffle chair cushion. Verbalized understanding. Prevention Measures in place, including: [place] sheet with pillows/wedges, Heels elevated off bed on pillows, Zinc/Moisture Barrier ointment (obtained), Waffle chair cushion (obtained for pt). Skin Care precaution order set in place. Dietitian consult order placed d/t wounds. PT/OT consult in place. Will continue to follow pt. Please Vocera for any questions or concerns. Yari Pelletier RN [facility] 03-15-2025 Plan of care note Problem: Knowledge Deficit Goal: Patient/family/caregiver demonstrates understanding of disease process, treatment plan, medications, and discharge instructions Outcome: Progressing Problem: Problem Interventions Goal: Assess Nutritional Intake Outcome: Progressing T [facility] 03-14-2025 Plan of care note Problem: [...] Goal: Assess Nutritional Intake Outcome: Progressing T [facility] 03-14-2025 Consult note Associated Order (s): [...] ascites and omental edema in upper abdomen.) Retail Banker Strength: Not Performed Chief Complaint Patient presents [...] On: Kcal/kg Weight Used for Energy Requirements: [place] Weight for Energy Calculation (kg): 75 kg Total Energy Requirements (kcals/day): 6690-3146 (25-30 kcals/kg) Weight Used for Protein Requirements: [place] Weight in Kg Used for Protein Requirements: [...] 122 201* CBC: Recent Labs 03/13/25 0902 03/15/25433 WBC 8.0 6.7 HGB 11.8* 8.5* 9.2* HCT 28.4* 30.1* MCV 99.3* 99.7* PLT 392 392 Lab Results Component Value Date EFBP 40 (A) 10/04/2024 Lab Results Component Value Date LDLCALC 109 (H) 03/14/2025 HDL 30 (L) 03/14/2025 CHOL 159 03/14/2025 TRIG 98 03/14/2025 Lab Results Component Value Date TSH 6.88 (H) 03/13/2025 FREET4 0.89 03/15/2025 SUEOGINY86 959 (H) 10/22/2019 FOLATE 9.2 10/22/2019 FERRITIN [...] for updated dry wt - per nephro) [place] Body Weight (lbs) (Calculated): 166 lbs [place] Body Weight (Kg) (Calculated): 75 kg % [place] Body Weight (Calculated): 88.6 % BMI (kg/m2) [...] Yasemin Elizabethsalvador MS, RD, LD Contact: or Exaptive Chat (dial *[phone] from hospital phone) [1] Past Medical History: Diagnosis Date Acute renal failure (ARF) ([facility]) 10/19/2019 Anemia 12/30/2021 Calcification of abdominal aorta (HCC) 10/08/202309/[address] abd Diverticulosis 10/08/2023 ESRD on hemodialysis ([facility]) (HCC) 10/26/2019 Hemodialysis patient ([facility]) ([facility]) HTN (hypertension) 12/01/2022 Hypertension IgA nephropathy IgA nephropathy determined by biopsy of kidney 10/26/2019 Missed vaccination due to patient refusal 10/08/2023 Has a number of non-scientific based beliefs which interfere with his understanding and acceptance of the medical benefit of vaccination. Nonrheumatic aortic valve stenosis 10/08/2023 Paroxysmal A-fib ([facility]) ([facility]) 08/18/2023 Tobacco abuse 10/08/2023 [2] Past Surgical History: Procedure Laterality Date APPENDECTOMY CARDIAC CATHETERIZATION N/A 10/09/2024 Performed by Bob Watson MD at [facility] Cardiac Cath/EP Lab CARDIAC CATHETERIZATION Bilateral 11/01/2024 Performed by Bob Watson MD at [facility] Cardiac Cath/EP Lab CARDIAC CATHETERIZATION N/A 11/01/2024 Performed by Bob Watson MD at [facility] Cardiac Cath/EP Lab COLONOSCOPY N/A 01/24/2025 Performed by Chadd Davis MD at [facility] ENDOSCOPY FISTULAGRAM (HISTORICAL) Left 09/15/2021 LEFT UPPER ARM HX AV FISTULA CREATION IR EMBOLIZATION 10/14/2024 IR EMBOLIZATION 10/14/2024 [facility] SPECIAL PROCEDURES IR FISTULAGRAM 08/07/2022 IR FISTULAGRAM 08/07/2022 [facility] IR IMAGING TONSILLECTOMY (HISTORICAL) [3] Lidocaine, 1 patch, Topical, Daily metoprolol tartrate, 25 mg, Oral, q6h pantoprazole, 40 mg, Oral, BID AC sevelamer carbonate, 800 mg, Oral, TID WC sodium zirconium cyclosilicate, 5 g, Oral, Daily warfarin, 2.5 mg, Oral, Once [4] [facility] 03-14-2025 Hospital Discharg e steven Jones RN - 03/14/2025 2:19 PM EDT My Heart Failure Action Plan Use the below chart as a guide for daily symptom monitoring after you obtain your morning weight. My Software Quality Assurance Engineer: Dr. Shah [facility]iology at [facility] [phone] My Certified Fire Investigator: [facility] [address] [place] [address] My Diagnosis: Heart failure with [...] 5 pounds in a week Call your Certified Fire Investigator/Dialysis center!! My Diet Goal: General diet recommendations [...] 10/09/2024 Performed by Bob Watson MD at [facility] Cardiac Cath/EP Lab CARDIAC CATHETERIZATION Bilateral 11/01/2024 Performed by Bob Watson MD at [facility] Cardiac Cath/EP Lab CARDIAC CATHETERIZATION N/A 11/01/2024 Performed by Bob Watson MD at [facility] Cardiac Cath/EP Lab COLONOSCOPY N/A 01/24/2025 Performed by Chadd Davis MD at [facility] ENDOSCOPY FISTULAGRAM (HISTORICAL) Left 09/15/2021 LEFT UPPER ARM HX AV FISTULA CREATION IR EMBOLIZATION 10/14/2024 IR EMBOLIZATION 10/14/2024 [facility] SPECIAL PROCEDURES IR FISTULAGRAM 08/07/2022 IR FISTULAGRAM 08/07/2022 [facility] IR IMAGING TONSILLECTOMY (HISTORICAL) Immunization History: Immunization History Administered Date(s) Administered Hep B, Unspecified 11/15/2019, 12/19/2019, 01/19/2020, 05/20/2020 Active Problems: Medical Problems Problem List * (Principal) SOB (shortness of breath) Paroxysmal A-fib (CMS/HCC) (HCC) HTN (hypertension) ESRD on hemodialysis (CMS/HCC) (HCC) IgA nephropathy determined by biopsy of kidney Diverticulosis Nonrheumatic aortic valve stenosis Calcification of abdominal aorta ([facility]) Overview Signed 10/08/2023 4:44 PM by Jr [...] Acute respiratory failure with hypoxia ([facility]) [J96.01] Tracheostomy care ([facility]) [Z43.0] Pulmonary embolism (HCC) MCFP (current) use of antibiotics Complication of tracheostomy [...] 03/21/25 155 lb (70.3 kg) Mental Status: {[facility] Patient Mental Status:13314} IV Access: {[facility] IV Access:42192} Nursing Mobility/ADLs: Walking {CHRISTY ADL:12573::"Independent"} Transfer {CHRISTY ADL:42739::"Independent"} Bathing {CHRISTY ADL:55390::"Independent"} Dressing {CHRISTY ADL:00378::"Independent"} Toileting {CHRISTY ADL:29905::"Independent"} Feeding {CHRISTY ADL:94704::"Independent"} Mail Carrier And Clerk {CHRISTY ADL:07586::"Independent"} Med Delivery {yes/no:77047} Wound Care Documentation and Therapy: Wound/Incision 11/13/24 Pressure Injury Sacrum (Active) Site Assessment Red;[place] 03/21/25 0402 Mahnaz-Wound Assessment [place] 03/13/251999 Drainage Description Sanguineous 03/13/251999 Odor Malodorous/putrid [...] Site Assessment Black;Painful 03/21/25 0402 Mahnaz-Wound Assessment [place] 03/21/25 0402 Odor None 03/18/25 1500 Drainage [...] Number of days: 7 Elimination: Continence: Bowel: {yes/no:18114} Bladder: {yes/no:66207} Urinary Catheter: {ROSENDO Urinary Catheter:34362} Colostomy/Ileostomy/Ileal Conduit: {YES / NO:} Date of Last BM: Intake/Output Summary (Last 24 hours) at 03/21/2025 1206 Last data filed at 03/20/2025 1523 Gross per 24 hour Intake 300 ml Output -- Net 300 ml I/O last 3 completed shifts: In: 1338.9 (19 mL/kg) [P.O.:240; I.V.:1098.9 (15.6 mL/kg)] Out: - (0 mL/kg) Weight: 70.3 kg Safety Concerns: {ROSENDO Safety Concerns:56087} Impairments/Disabilities: {ROSENDO Impairments/Disabilities:47910} Nutrition Therapy: Current Nutrition Therapy: {ROSENDO Diet List:36856} Routes of Feeding: {routes of feedin} Liquids: {liquid consistency:32062} Daily Fluid Restriction: {daily fluid restriction:47600} Last Modified Barium Swallow with Video (Video Swallowing Test): {done not done:12318} Treatments at the Time of Hospital Discharge: Respiratory Treatments: Oxygen Therapy: {Therapy; copd oxygen:30223} Ventilator: {ROSENDO Ventilator:06059} Rehab Therapies: {GEN THERAPY DISCIPLINE SCAL:3403993} Weight Bearing Status/Restrictions: {POD WEIGHT BEARIN} Other Medical Equipment (for information only, NOT a DME order): {Assistive Devices DME:91803} Other Treatments: Patient's personal belongings (please select all that are sent with patient): {ROSENDO Patient Belongings:15032} RN SIGNATURE: {E-signature:64226} CASE MANAGEMENT/SOCIAL WORK SECTION Inpatient Status Date: 02-10-25 Discharging to Facility/ Agency Name: [facility] Address:[address] [place] [address] Fax: Dialysis Facility (if applicable) Name: Address: Dialysis Schedule: Phone: Fax: Medical Record Coder/Plaster Model And Mold Maker signature: ICIAN SECTION Name: Jun Snyder Prognosis: fair Condition at Discharge: stable Rehab Potential (if transferring to Rehab): fair Recommended Labs or Other Treatments After Discharge: none The individual is being admitted to a nursing facility directly from an [facility] or a unit of a [facility] that is not operated by or licensed by [facility] under section 5119.14 or 5160-3-15.1 5 The [...] H&P PHYSICIAN SIGNATURE: documented in this encounter [facility] 03-14-2025 Nurse Note Patient Name: Jun Snyder Patient : 1965 Acct: [id number] Date of Admission: 03/13/2025 [facility] Code Status: Full Code Allergies: [...] 28 03/14/2025 0507 BUN 57 (H) 03/14/2025 050 CREATININE 4.96 (H) 03/14/2025 050 CREATININE 9.99 (H) 10/27/2019 0545 CALCIUM 10.1 03/14/2025 0507 PHOS 2.6 02/23/2025 0032 IV Drips and Rate/Dose Continuous Meds[3] Safety - Before each treatment: Dialysis Machine No.: [id number] RO Machine Number: [id number] Dialyzer Lot No.: [id number] Tubing Lot Number: [id number] All Connections Secure: Yes Venous Parameters Set: Yes Arterial Parameters Set: Yes NS Bag: Yes Saline Line Double Clamped: Yes Dialyzer: Nipro Prime Volume (mL): 200 mL RO Machine Number: [id number] RO Machine Log Sheet Completed: Yes Machine Alarm Self Test: Completed, Passed (03/14/25 1135) Air Foam Detector: Tested, Proper Function, pH Reading Extracorporeal Circuit Tested for Integrity: Yes Machine Conductivity: 13.7 Manual Conductivity: 13.6 Manual Ph: 7 Bleach Test (Neg): Yes Bath Temperature: 36 C (96.8 F) Conductivity Meter Serial #: [id number] Machine Functioning Alarm Free? Yes Dialysis Bath: [...] Diagnosis Anemia Paroxysmal A-fib ([facility]) ([facility]) HTN (hypertension) ESRD on hemodialysis ([facility]) ([facility]) IgA nephropathy determined by biopsy of kidney Diverticulosis Nonrheumatic aortic valve stenosis Calcification of abdominal aorta (HCC) Missed vaccination due to patient refusal Tobacco abuse Alcohol use disorder in remission Atrial flutter, unspecified type ([facility]) RSV (acute bronchiolitis due to respiratory syncytial virus) Aortic stenosis Upper GI bleed S/P AVR Acute hypoxic respiratory failure ([facility]) Acute encephalopathy Pneumoperitoneum Gastric ulceration Severe malnutrition ([facility]/HCC) ([facility]) Pleural effusion Peritonitis due to fungus ([facility]) History of abdominal surgery Leg DVT (deep venous thromboembolism), acute, left ([facility]) Ischemic ulcer of toe of left foot, limited to breakdown of skin ([facility]) Tracheostomy dependence ([facility]) Leukocytosis Decubitus ulcer of sacral region, unstageable ([facility]) Pneumonia of both lungs due to methicillin susceptible Staphylococcus aureus (MSSA) ([facility]) Sacral osteomyelitis ([facility]) ([facility]) Acute respiratory failure with hypoxia ([facility]) [J96.01] Tracheostomy care ([facility]) [Z43.0] Pulmonary embolism ([facility]) MCFP (current) use of antibiotics Complication of tracheostomy ([facility]) ([facility]) BRBPR (bright red blood per rectum) Hemoptysis SOB (shortness of breath) [3] [facility] 03-14-2025 Consult note Formatting of th is note is different from the original. [facility] Nephrology Consult Note Consults HPI Jun is [...] 0 min Stress: Stress Concern Present (02/21/2025) [facility]ron[facility] of Occupational Health - Occupational Stress Questionnaire Feeling of Stress : To some extent Social Connections: Unknown (02/21/2025) Social Connection and Isolation Panel [NHANES] Frequency of Communication with Friends and Family: More than three times a week Frequency of Social Gatherings with Friends and Family: Patient declined Attends Confucianist Services: Patient declined Active Member of Clubs [...] 3.5 CHLORIDE mmol/L 102 110* CO2 mmol/L BUN mg/dL 57* 41* CREATININE mg/dL 4.96* [...] and sacral wound. Please message me through Little [place] Bag chat with any questions or concerns. Wellington Nicole MD 03/14/2025 10:43 AM [facility] [address] [place] [address], [address] [place] [address] Office: [phone] [1] Past Medical History: Diagnosis Date Acute renal failure (ARF) ([facility]) 10/19/2019 Anemia 12/30/2021 Calcification of abdominal aorta ([facility]) 10/08/202309/[address] abd Diverticulosis 10/08/2023 ESRD on hemodialysis ([facility]) ([facility]) 10/26/2019 Hemodialysis patient ([facility]) ([facility]) HTN (hypertension) 12/01/2022 Hypertension IgA nephropathy IgA nephropathy determined by biopsy of kidney 10/26/2019 Missed vaccination due to patient refusal 10/08/2023 Has a number of non-scientific based beliefs which interfere with his understanding and acceptance of the medical benefit of vaccination. Nonrheumatic aortic valve stenosis 10/08/2023 Paroxysmal A-fib ([facility]) ([facility]) 08/18/2023 Tobacco abuse 10/08/2023 [2] Family History [...] ODT OR ondansetron, polyethylene glycol (PEG) 3350 [facility] 03-14-2025 Note Formatting of this n ote might be different from the original. Care Management Progress Note Pt was sent to ER from dialysis due to shortness of breath. Needs PVR of BLE. Nephrology, Vascular and therapies are following. Wants to return to [facility]. Is a bed hold, but if they can skill him they would like to.. Length of Stay (Days): 1 GMLOS: No GMLOS Documented [facility] 03-14-2025 Note Formatting of this n ote might be different from the original. Care Management Progress Note Pt was sent to ER from dialysis due to shortness of breath. Needs PVR of BLE. Nephrology, Vascular and therapies are following. Wants to return to [facility]. Is a bed hold, but if they can skill him they would like to.. Length of Stay (Days): 1 GMLOS: No GMLOS Documented [facility] 03-14-2025 Consult note Associated Order (s): IP CONSULT TO CARDIOLOGY [facility] Cardiology /Electrophysiology Consult Note Reason for Consult/Chief Complaint: Volume overload, afib rvr Referring provider: Dr Kidd Established rn international: Dr Shah History of Present Illness: Jun [...] to select rehab. He recently was at [facility] for Klebsiella pneumonia, hemoptysis and [...] Coumadin - goal INR 2-3 Managed by pharmacy/[facility] clinic Medications: Scheduled Meds[1] Infusion Medications: Continuous [...] of Cardiovascular Disease, Division of Heart Failure [facility] 3:25 PM 03/14/25 [facility] [employer] Work Phone: 03-14-2025 Consult note Associated Order (s): INPATIENT CONSULT TO WOUND CARE PROVIDERS Images from the original note were not included. [facility] Wound VAC CONSULT Note Jun Snyder [...] apply Betadine and allow to dry, leave LIVESTOCK HAULIER daily and PRN Nutritional support Wound Care to follow Recommend to follow up at [facility] wound care center after hospital discharge. [...] Date Acute renal failure (ARF) ([facility]) 10/19/2019 Anemia 12/30/2021 Calcification of abdominal aorta ([facility]) 10/08/202309/[address] abd Diverticulosis 10/08/2023 ESRD on hemodialysis ([facility]) ([facility]) 10/26/2019 Hemodialysis patient ([facility]) ([facility]) HTN (hypertension) 12/01/2022 Hypertension IgA nephropathy IgA nephropathy determined by biopsy of kidney 10/26/2019 Missed vaccination due to patient refusal 10/08/2023 Has a number of non-scientific based beliefs which interfere with his understanding and acceptance of the medical benefit of vaccination. Nonrheumatic aortic valve stenosis 10/08/2023 Paroxysmal A-fib ([facility]) ([facility]) 08/18/2023 Tobacco abuse 10/08/2023 [2] Past Surgical History: Procedure Laterality Date APPENDECTOMY CARDIAC CATHETERIZATION N/A 10/09/2024 Performed by Bob Watson MD at [facility] Cardiac Cath/EP Lab CARDIAC CATHETERIZATION Bilateral 11/01/2024 Performed by Bob Watson MD at [facility] Cardiac Cath/EP Lab CARDIAC CATHETERIZATION N/A 11/01/2024 Performed by Bob Watson MD at [facility] Cardiac Cath/EP Lab COLONOSCOPY N/A 01/24/2025 Performed by Chadd Davis MD at [facility] ENDOSCOPY FISTULAGRAM (HISTORICAL) Left 09/15/2021 LEFT UPPER ARM HX AV FISTULA CREATION IR EMBOLIZATION 10/14/2024 IR EMBOLIZATION 10/14/2024 [facility] SPECIAL PROCEDURES IR FISTULAGRAM 08/07/2022 [...] Gill DO at 03/19/2025 4:44 PM EDT [facility] 03-14-2025 Note Formatting of this n ote might be different from the original. Referral placed to [facility] via [facility] per TCC request. Await review and response regarding ability to accept. TCC notified. [facility] 03-14-2025 Note Formatting of this n ote might be different from the original. Referral placed to [facility] via [facility] per TCC request. Await review and response regarding ability to accept. TCC notified. [facility] 03-14-2025 Note Referral placed to [facility] via [facility] per TCC request. Await review and response regarding ability to accept. TCC notified. Electronically signed by [facility]ino [facility] Plan of care note Problem: Knowledge Deficit Goal: Patient/family/caregiver demonstrates understanding of disease process, treatment plan, medications, and discharge instructions Outcome: Progressing Problem: Potential for Compromised Skin Integrity Goal: Skin Integrity is Maintained or Improved Outcome: Progressing [facility] 03-13-2025 Nurse Note Removed wound vac that patient arrived to 5w from ecf pictures of all wound taken on rover and saved to chart NSWto DSD applied to sacral wound [facility] 03-13-2025 History and physical note [facility] Attending History and Physical Admit Date: 03/13/2025 [...] Klebsiella pneumonia with lung abscess presented to [place] ED with worsening shortness of breath. He [...] from [facility] to [facility] due to bed availability Past Medical [...] 0 min Stress: Stress Concern Present (02/21/2025) [facility] Taylor of Occupational Health - Occupational Stress Questionnaire Feeling of Stress : To some extent Social Connections: Unknown (02/21/2025) Social Connection and Isolation Panel [NHANES] Frequency of Communication with Friends and Family: More than three times a week Frequency of Social Gatherings with Friends and Family: Patient declined Attends Confucianist Services: Patient declined Active Member of Clubs [...] made to ensure accuracy; however, inadvertent computerized nanoelectronics engineer errors may be present. Rubi Sanon MD,MD Division of Hospitalist Medicine [facility] Please forward a copy of this H&P to the patient's PCP. Thank you. Electronically signed by Rubi Sanon MD at 5:11 PM [1] Past Medical History: Diagnosis Date Acute renal failure (ARF) ([facility]) 10/19/2019 Anemia 12/30/2021 Calcification of abdominal aorta ([facility]) 10/08/202309/[address] abd Diverticulosis 10/08/2023 ESRD on hemodialysis ([facility]) ([facility]) 10/26/2019 Hemodialysis patient ([facility]) ([facility]) HTN (hypertension) 12/01/2022 Hypertension IgA nephropathy IgA nephropathy determined by biopsy of kidney 10/26/2019 Missed vaccination due to patient refusal 10/08/2023 Has a number of non-scientific based beliefs which interfere with his understanding and acceptance of the medical benefit of vaccination. Nonrheumatic aortic valve stenosis 10/08/2023 Paroxysmal A-fib ([facility]) ([facility]) 08/18/2023 Tobacco abuse 10/08/2023 [2] Past Surgical History: Procedure Laterality Date APPENDECTOMY CARDIAC CATHETERIZATION N/A 10/09/2024 Performed by Bob Watson MD at [facility] Cardiac Cath/EP Lab CARDIAC CATHETERIZATION Bilateral 11/01/2024 Performed by Bob Watson MD at [facility] Cardiac Cath/EP Lab CARDIAC CATHETERIZATION N/A 11/01/2024 Performed by Bob Watson MD at [facility] Cardiac Cath/EP Lab COLONOSCOPY N/A 01/24/2025 Performed by Chadd Davis MD at [facility] ENDOSCOPY FISTULAGRAM (HISTORICAL) Left 09/15/2021 LEFT UPPER ARM HX AV FISTULA CREATION IR EMBOLIZATION 10/14/2024 IR EMBOLIZATION 10/14/2024 [facility] SPECIAL PROCEDURES IR FISTULAGRAM 08/07/2022 IR FISTULAGRAM 08/07/2022 [facility] IR IMAGING TONSILLECTOMY (HISTORICAL) [3] Family History Problem Relation Name Age of Onset No Known Problems Mother No Known Problems Father [4] No current facility-administered medications for this encounter. [5] Allergies Allergen Reactions Lisinopril Swelling and Angioedema [facility] 03-13-2025 Note [facility] 03-13-2025 History and physical note [facility] Attending History and Physical Admit Date: 03/13/2025 [...] Klebsiella pneumonia with lung abscess presented to [place] ED with worsening shortness of breath. He [...] in upper abdomen He was transferred from [place] ED to [facility] due to bed availability Past Medical [...] 0 min Stress: Stress Concern Present (02/21/2025) [employer] [facility] [employer] - Occupational Stress Questionnaire Feeling of Stress : To some extent Social Connections: Unknown (02/21/2025) Social Connection and Isolation Panel [NHANES] Frequency of Communication with Friends and Family: More than three times a week Frequency of Social Gatherings with Friends and Family: Patient declined Attends Confucianist Services: Patient declined Active Member of Clubs [...] made to ensure accuracy; however, inadvertent computerized nanoelectronics engineer errors may be present. Rubi Sanon MD,MD Division of Hospitalist Medicine [facility] Please forward a copy of this H&P to the patient's PCP. Thank you. Electronically signed by Rubi Sanon MD at 5:11 PM [1] Past Medical History: Diagnosis Date Acute renal failure (ARF) ([facility]) 10/19/2019 Anemia 12/30/2021 Calcification of abdominal aorta ([facility]) 10/08/202309/[address] abd Diverticulosis 10/08/2023 ESRD on hemodialysis ([facility]) ([facility]) 10/26/2019 Hemodialysis patient ([facility]) ([facility]) HTN (hypertension) 12/01/2022 Hypertension IgA nephropathy IgA nephropathy determined by biopsy of kidney 10/26/2019 Missed vaccination due to patient refusal 10/08/2023 Has a number of non-scientific based beliefs which interfere with his understanding and acceptance of the medical benefit of vaccination. Nonrheumatic aortic valve stenosis 10/08/2023 Paroxysmal A-fib ([facility]) ([facility]) 08/18/2023 Tobacco abuse 10/08/2023 [2] Past Surgical History: Procedure Laterality Date APPENDECTOMY CARDIAC CATHETERIZATION N/A 10/09/2024 Performed by Bob Watson MD at [facility] Cardiac Cath/EP Lab CARDIAC CATHETERIZATION Bilateral 11/01/2024 Performed by Bob Watson MD at [facility] Cardiac Cath/EP Lab CARDIAC CATHETERIZATION N/A 11/01/2024 Performed by Bob Watson MD at [facility] Cardiac Cath/EP Lab COLONOSCOPY N/A 01/24/2025 Performed by Chadd Davis MD at [facility] ENDOSCOPY FISTULAGRAM (HISTORICAL) Left 09/15/2021 LEFT UPPER ARM HX AV FISTULA CREATION IR EMBOLIZATION 10/14/2024 IR EMBOLIZATION 10/14/2024 [facility] SPECIAL PROCEDURES IR FISTULAGRAM 08/07/2022 IR FISTULAGRAM 08/07/2022 [facility] IR IMAGING TONSILLECTOMY (HISTORICAL) [3] Family History Problem Relation Name Age of Onset No Known Problems Mother No Known Problems Father [4] No current facility-administered medications for this encounter. [5] Allergies Allergen Reactions Lisinopril Swelling and Angioedema documented in this encounter [facility] 03-13-2025 Emergency department Note When this RN came back from lunch Pt was already taken to [facility] by Consuelo Day. RN covering my lunch called report to RN at [facility]. [facility] 03-13-2025 Emergency department Note When this RN came back from lunch Pt was already taken to [facility] by Consuelo Day. RN covering my lunch called report to RN at [facility]. Called report to SWEETIE Linder at 5. Consuelo Johnson at bedside to transport patient to [facility]. Emergency Department Encounter Pt Name: [...] alert. Psychiatric: Mood and Affect: Mood normal. [place] Coma Scale Best Eye Response: Spontaneous Best [...] Hoffman, due to no available beds at [place] and available beds at [facility] patient wishes to be transferred. I discussed the case with Dr. Sanon at [facility] who accepts patient for transfer. Chronic conditions and social determinants of health affecting care: atrial fibrillation, ESRD DISPOSITION/PLAN Admit 03/13/2025 02:55:43 PM Keiry Solares MD Emergency Medicine [1] Past Medical History: Diagnosis Date Acute renal failure (ARF) ([facility]) 10/19/2019 Anemia 12/30/2021 Calcification of abdominal aorta ([facility]) 10/08/202309/[address] abd Diverticulosis 10/08/2023 ESRD on hemodialysis ([facility]) ([facility]) 10/26/2019 Hemodialysis patient ([facility]) ([facility]) HTN (hypertension) 12/01/2022 Hypertension IgA nephropathy IgA nephropathy determined by biopsy of kidney 10/26/2019 Missed vaccination due to patient refusal 10/08/2023 Has a number of non-scientific based beliefs which interfere with his understanding and acceptance of the medical benefit of vaccination. Nonrheumatic aortic valve stenosis 10/08/2023 Paroxysmal A-fib ([facility]) ([facility]) 08/18/2023 Tobacco abuse 10/08/2023 Keiry Solares MD 03/13/252115 documented in this encounter [facility] 03-13-2025 Emergency department Note Called report to SWEETIE Linder at 5W. [facility] 03-13-2025 Emergency department Note Consuelo Johnson at bedside to transport patient to [facility]. [facility] 03-13-2025 Physician Emergen cy department Note [...] Hoffman, due to no available beds at [place] and available beds at [facility] patient wishes to be transferred. I discussed the case with Dr. Sanon at [facility] who accepts patient for transfer. Chronic conditions and social determinants of health affecting care: atrial fibrillation, ESRD DISPOSITION/PLAN Admit 03/13/2025 02:55:43 PM Keiry Solares MD Emergency Medicine [1] Past Medical History: Diagnosis Date Acute renal failure (ARF) ([facility]) 10/19/2019 Anemia 12/30/2021 Calcification of abdominal aorta ([facility]) 10/08/202309/[address] abd Diverticulosis 10/08/2023 ESRD on hemodialysis ([facility]) ([facility]) 10/26/2019 Hemodialysis patient ([facility]) ([facility]) HTN (hypertension) 12/01/2022 Hypertension IgA nephropathy IgA nephropathy determined by biopsy of kidney 10/26/2019 Missed vaccination due to patient refusal 10/08/2023 Has a number of non-scientific based beliefs which interfere with his understanding and acceptance of the medical benefit of vaccination. Nonrheumatic aortic valve stenosis 10/08/2023 Paroxysmal A-fib ([facility]) ([facility]) 08/18/2023 Tobacco abuse 10/08/2023 Keiry Solares MD 03/13/252115 [facility] 03-08-2025 History of Presen t illness Narrative Pt was followed by the Palliative Care Team during hospitalization at [facility]. Provider is recommending continued Palliative follow up in the community. [facility]erral made too [facility], faxed info to [phone] documented in this encounter [facility] 03-08-2025 Telephone encount er Note 2nd attempt called and spoke to the Alyssa the Nurse for the patient at the facility he lives at. She states Sabino is the person who schedules the appointments and she is on vacation and wont be back till next Wednesday. I will try again next wednesday [facility] 03-08-2025 Miscellaneous Notes Formattin g of [...] this? Thank you documented in this encounter [facility] 03-05-2025 History of Presen t illness Narrative Images from the original note were not included. PHYSICAL THERAPY [facility] Treatment Note Name/MRN: Jair Snyder ([id number]) Date of : 1965 Age: 59 y.o. Room/Bed: W3-334/W3-334 A Discharge Recommendation: Nursing Home Facility Equipment Needed: (tbd) Assessment Increased time [...] any questions or concerns Bree Molina APRN HAZARDOUS MATERIALS WASTE TECHNICIAN A-G PLASTIC BUBBLE PACKER [facility] [phone] I reviewed with CONTINUOUS MINER OPERATOR HELPER-HAZARDOUS MATERIALS WASTE TECHNICIAN the medical history and the findings on physical examination. I discussed the patient s diagnosis and concur with the treatment plan as documented in his note. Please call [phone] or message me through Exaptive with any questions or concerns. [facility] Anticoagulation Management Service ([facility]) Inpatient Warfarin Consult HPI: Jun Snyder is a 59 y.o. male admitted on 02/20/2025 for Hemoptysis [R04.2]. Medical History[1] Patient is on warfarin for mechanical AVR and has a goal INR 2.0 - 3.0. Patient was referred to [facility], but so far has been managed at facilities, most recently [facility]. Pt's home dose of warfarin [...] RPh [facility] Consult Service is available daily [phone] via Exaptive Secure Chat. [1] Past Medical History: Diagnosis Date Acute renal failure (ARF) ([facility]) 10/19/2019 Anemia 12/30/2021 Calcification of abdominal aorta ([facility]) 10/08/202309/[address] abd Diverticulosis 10/08/2023 ESRD on hemodialysis ([facility]) ([facility]) 10/26/2019 Hemodialysis patient ([facility]) ([facility]) HTN (hypertension) 12/01/2022 Hypertension IgA nephropathy IgA nephropathy determined by biopsy of kidney 10/26/2019 Missed vaccination due to patient refusal 10/08/2023 Has a number of non-scientific based beliefs which interfere with his understanding and acceptance of the medical benefit of vaccination. Nonrheumatic aortic valve stenosis 10/08/2023 Paroxysmal A-fib ([facility]) ([facility]) 08/18/2023 Tobacco abuse 10/08/2023 Hospitalist Progress Note - [facility] ([facility]) 03/05/2025 7:13 AM [phone]: Please page me for patient care issues. [phone]: Please page [facility] Hospitalist - [facility] for any issues. Subjective and Objective: Admit [...] was bright red and it stopped just QUALITY ASSURANCE CALIBRATOR when in transport. Adult diet Regular Dietary [...] - (0 mL/kg) Weight: 60.8 kg @IODETAILS@ @[id number]@ Medications: Continuous Meds[1] Scheduled Meds[2] Recent Labs [...] "CHOL" No results found for: "PHART", "PO2ART", "OFW7WVY" Recent Labs 03/04/25 0156 03/04/25 0946 03/05/25 [...] with INR 1.8, [facility] will follow at [facility] - am labs, replace lytes prn - PT/OT/CM/SW as appropriate - delirium precautions: limit night-time awakening - DVT prophylaxis: Coumadin Complexity: Acute illness or injury posing a threat to life or body function (HIGH). Risk: Admission to hospital-level care was considered or occurred (HIGH). Advance Directive: Full Anticipated Discharge - Date - medically stable for discharge - Location - [facility] ([facility]) - Pending the following - [...] DO Division of Hospitalist Medicine Inpatient Medical Services/[facility] [1] heparin, 5-30 Units/kg/hr, Last Rate: 21 [...] original note were not included. PHYSICAL THERAPY [facility] Name/MRN: Jair Snyder ([id number]) Date: 03/04/2025 Attempted to initiate PT this date; upon arrival, patient states he is needs to have a bowel movement and does not want to do PT. Offered to ambulate patient to bathroom or use of a bedpan however patient declines. Will continue to follow. Emily Stanley, QUALITY ASSURANCE CALIBRATOR Cosigned by Darryn Tay, PT at 03/04/2025 3:38 PM EDT Hospitalist Progress Note - [facility] ([facility]) 03/04/2025 9:11 AM [phone]: Please page me for patient care issues. [phone]: Please page [facility] Hospitalist - [facility] for any issues. Subjective and Objective: Admit [...] was bright red and it stopped just QUALITY ASSURANCE CALIBRATOR when in transport. Adult diet Regular Dietary [...] - (0 mL/kg) Weight: 60.8 kg @IODETAILS@ @[id number]@ Medications: Continuous Meds[1] Scheduled Meds[2] Recent Labs [...] "CHOL" No results found for: "PHART", "PO2ART", "FOO4IWH" Recent Labs 03/02/25 0004 03/03/25 0212 03/04/25 [...] - 03/04 - 05/05 - Location - [facility] ([facility]) - Pending the following - [...] DO Division of Hospitalist Medicine Inpatient Medical Services/[facility] [1] heparin, 5-30 Units/kg/hr, Last Rate: 20 [...] electrolyte and CBC daily Maryam Marcelo DO [facility] Anticoagulation Management Service ([facility]) Inpatient Warfarin Consult HPI: Jun Snyder is a 59 y.o. male admitted on 02/20/2025 for Hemoptysis [R04.2]. Medical History[1] Patient is on warfarin for mechanical AVR and has a goal INR 2.0 - 3.0. Patient was referred to [facility], but so far has been managed at facilities, most recently [facility]. Pt's home dose of warfarin [...] PharmD [facility] Consult Service is available daily [phone] via Exaptive Secure Chat. [1] Past Medical History: Diagnosis Date Acute renal failure (ARF) ([facility]) 10/19/2019 Anemia 12/30/2021 Calcification of abdominal aorta ([facility]) 10/08/202309/[address] abd Diverticulosis 10/08/2023 ESRD on hemodialysis ([facility]) ([facility]) 10/26/2019 Hemodialysis patient ([facility]) ([facility]) HTN (hypertension) 12/01/2022 Hypertension IgA nephropathy IgA nephropathy determined by biopsy of kidney 10/26/2019 Missed vaccination due to patient refusal 10/08/2023 Has a number of non-scientific based beliefs which interfere with his understanding and acceptance of the medical benefit of vaccination. Nonrheumatic aortic valve stenosis 10/08/2023 Paroxysmal A-fib (CMS/HCC) (HCC) 08/18/2023 Tobacco abuse 10/08/2023 Hospitalist Progress Note - [facility] ([facility] 03/03/2025 8:37 AM [phone]: Please page me for patient care issues. [phone]: Please page [facility] Hospitalist - [facility] for any issues. Subjective and Objective: Admit [...] was bright red and it stopped just QUALITY ASSURANCE CALIBRATOR when in transport. Adult diet Regular Dietary [...] (0.4 mL/kg) [Drains:25] Weight: 60.8 kg @IODETAILS@ @[id number]@ Medications: Continuous Meds[1] Scheduled Meds[2] Recent Labs [...] "CHOL" No results found for: "PHART", "PO2ART", "ANK7EPI" Recent Labs 03/01/25 0003 03/02/25 0004 03/03/25 [...] - Date - 03/04 - Location - [facility] ([facility]) - Pending the following - [...] Services/[facility] [1] heparin, 5-30 Units/kg/hr, Last Rate: 20 [...] any questions or concerns Bree Molina APRN HAZARDOUS MATERIALS WASTE TECHNICIAN A-G PLASTIC BUBBLE PACKER [facility] [phone] Pt seen and examined independently by me. I reviewed with CONTINUOUS MINER OPERATOR HELPER-HAZARDOUS MATERIALS WASTE TECHNICIAN the medical history and the findings on physical examination. I discussed the patient s diagnosis and concur with the treatment plan as documented in his note. Please call [phone] or message me through Exaptive with any questions or concerns. Hospitalist Progress Note - [facility] ([facility]) 03/02/2025 8:20 AM [phone]: Please page me for patient care issues. [phone]: Please page [facility] Hospitalist - [facility] for any issues. Subjective and Objective: Admit [...] was bright red and it stopped just QUALITY ASSURANCE CALIBRATOR when in transport. Adult diet Regular Dietary [...] (0.7 mL/kg) [Drains:40] Weight: 60.8 kg @IODETAILS@ @[id number]@ Medications: Continuous Meds[1] Scheduled Meds[2] Recent Labs [...] "CHOL" No results found for: "PHART", "PO2ART", "QUO3KEE" Recent Labs 02/28/25 0004 03/01/25 0003 03/02/25 [...] Date - 03/03 - Location - SNF ([facility]) - Pending the following - [...] DO Division of Hospitalist Medicine Inpatient Medical Services/[facility] [1] heparin, 5-30 Units/kg/hr, Last Rate: 19 Units/kg/hr (03/02/25 0813) [2] B complex-vitamin C-folic acid, 1 capsule, Oral, Daily metoprolol tartrate, 25 mg, Oral, BID pantoprazole, 40 mg, Oral, BID AC piperacillin-tazobactam, 2,250 mg, IntraVENous, q6h QUEtiapine, 25 mg, Oral, Nightly sevelamer carbonate, 800 mg, Oral, TID WC warfarin, 5 mg, Oral, Once [facility] Anticoagulation Management Service ([facility]) Inpatient Warfarin Consult HPI: Jun Snyder is a 59 y.o. male admitted on 02/20/2025 for Hemoptysis [R04.2]. Medical History[1] Patient is on warfarin for mechanical AVR and has a goal INR 2.0 - 3.0. Patient was referred to [facility], but so far has been managed at facilities, most recently [facility]. Pt's home dose of warfarin [...] over when discharged from facility. Fatuma Odonnell [facility] Consult Service is available daily [phone] via Exaptive Secure Chat. [1] Past Medical History: Diagnosis Date Acute renal failure (ARF) (HCC) 10/19/2019 Anemia 12/30/2021 Calcification of abdominal aorta ([facility]) 10/08/202309/[address] abd Diverticulosis 10/08/2023 ESRD on hemodialysis ([facility]) ([facility]) 10/26/2019 Hemodialysis patient ([facility]) ([facility]) HTN (hypertension) 12/01/2022 Hypertension IgA nephropathy IgA nephropathy determined by biopsy of kidney 10/26/2019 Missed vaccination due to patient refusal 10/08/2023 Has a number of non-scientific based beliefs which interfere with his understanding and acceptance of the medical benefit of vaccination. Nonrheumatic aortic valve stenosis 10/08/2023 Paroxysmal A-fib ([facility]) ([facility]) 08/18/2023 Tobacco abuse 10/08/2023 Images from the original note were not included. PHYSICAL THERAPY [facility] Treatment Note Name/MRN: Jair Snyder ([id number]) Date of : 1965 Age: 59 y.o. Room/Bed: W3334/3334 A Discharge Recommendation: Nursing Home Facility Equipment Needed: No Assessment Good distance, [...] not have opportunity today to speak to QUALITY ASSURANCE CALIBRATOR re: recommendation. Mobility appears to be consistent with homegoing, but know that medical conditions and other factors clearly could influence recommendations. Images from the original note were not included. OCCUPATIONAL THERAPY [facility] Treatment Note Name/MRN: Jair Snyder ([id number]) Date of : 1965 Age: 59 y.o. Room/Bed: W3-334/W3-334 A Discharge Recommendation: Nursing Home Facility Other: DME TBD at next level [...] with any questions or concerns Bree Molina CONTINUOUS MINER OPERATOR HELPER HAZARDOUS MATERIALS WASTE TECHNICIAN A-G PLASTIC BUBBLE PACKER [facility] [phone] Pt seen and examined independently by me. I reviewed with Jun Maki, the medical history and the findings on physical examination. I discussed the patient s diagnosis and concur with the treatment plan as documented in his note. Please call [phone] or message me through Exaptive with any questions or concerns. Hospitalist Progress Note - [facility] ([facility]) 03/01/2025 9:51 AM [phone]: Please page me for patient care issues. [phone]: Please page [facility] Hospitalist - [facility] for any issues. Subjective and Objective: Admit [...] was bright red and it stopped just QUALITY ASSURANCE CALIBRATOR when in transport. Adult diet Regular Dietary Orders (From admission, onward) Start Ordered 02/27/25 1254 Supplement:Breakfast, Dinner; Nepro w/CARB Steady Until discontinued Question Answer Comment Frequency Breakfast Frequency Dinner Select supplement: Nepro w/CARB Steady 02/27/25 1254 02/21/25 1021 Adult diet Regular Diet effective now Question: Diet type Answer: Regular 02/21/25 1021 No intake/output data recorded. @IODETAILS@ @[email or web address]@ Medications: Continuous Meds[1] Scheduled Meds[2] Recent Labs [...] "CHOL" No results found for: "PHART", "PO2ART", "GWC4OBQ" Recent Labs 02/27/25 0010 02/28/25 0004 03/01/25 [...] - 03/01 - 03/02 - Location - [facility] ([facility]) - Pending the following - [...] Mobile Relation: Child Secondary Emergency Contact: TarunToma cabral Mobile Relation: Partner Anthony Hurtado DO Division of Hospitalist Medicine Inpatient Medical Services/[facility] [1] heparin, 5-30 Units/kg/hr, Last Rate: 18 Units/kg/hr (03/01/25 0729) [2] B complex-vitamin C-folic acid, 1 capsule, Oral, Daily metoprolol tartrate, 25 mg, Oral, BID pantoprazole, 40 mg, Oral, BID AC piperacillin-tazobactam, 2,250 mg, IntraVENous, q6h QUEtiapine, 25 mg, Oral, Nightly sevelamer carbonate, 800 mg, Oral, TID WC warfarin, 4 mg, Oral, Once Images from the original note were not included. PHYSICAL THERAPY [facility] Name/MRN: Jair Snyder ([id number]) Date: 03/01/2025 Leaving for dialysis. Return later time/date for PT. Merlene León, QUALITY ASSURANCE CALIBRATOR Cosigned by Anthony Black, PT at 03/01/2025 8:42 AM EDT [facility] Anticoagulation Management Service ([facility]) Inpatient Warfarin Consult HPI: Jun Snyder is a 59 y.o. male admitted on 02/20/2025 for Hemoptysis [R04.2]. Medical History[1] Patient is on warfarin for mechanical AVR and has a goal INR 2.0 - 3.0. Patient was referred to [facility], but so far has been managed at facilities, most recently [facility]. Pt's home dose of warfarin [...] RPh [facility] Consult Service is available daily [phone] via Exaptive Secure Chat. [1] Past Medical History: Diagnosis Date Acute renal failure (ARF) ([facility]) 10/19/2019 Anemia 12/30/2021 Calcification of abdominal aorta ([facility]) 10/08/202309/[address] abd Diverticulosis 10/08/2023 ESRD on hemodialysis ([facility]) ([facility]) 10/26/2019 Hemodialysis patient ([facility]) ([facility]) HTN (hypertension) 12/01/2022 Hypertension IgA nephropathy IgA nephropathy determined by biopsy of kidney 10/26/2019 Missed vaccination due to patient refusal 10/08/2023 Has a number of non-scientific based beliefs which interfere with his understanding and acceptance of the medical benefit of vaccination. Nonrheumatic aortic valve stenosis 10/08/2023 Paroxysmal A-fib ([facility]) ([facility]) 08/18/2023 Tobacco abuse 10/08/2023 Nephrology Progress Note [...] any questions or concerns Bree Molina APRN HAZARDOUS MATERIALS WASTE TECHNICIAN A-G PLASTIC BUBBLE PACKER [facility] [phone] Pt seen and examined independently by me. I reviewed with DENIA-HAZARDOUS MATERIALS WASTE TECHNICIAN the medical history and the findings on physical examination. I discussed the patient s diagnosis and concur with the treatment plan as documented in his note. Please call [phone] or message me through Exaptive with any questions or concerns. Hospitalist Progress Note - [facility] ([facility]) 02/28/2025 8:23 AM [phone]: Please page me for patient care issues. [phone]: Please page [facility] - [facility] for any issues. Subjective and Objective: Admit [...] was bright red and it stopped just QUALITY ASSURANCE CALIBRATOR when in transport. Adult diet Regular Dietary [...] [Urine:450 (0.2 mL/kg/hr)] Weight: 60.8 kg @IODETAILS@ @[id number]@ Medications: Continuous Meds[1] Scheduled Meds[2] Recent Labs [...] "CHOL" No results found for: "PHART", "PO2ART", "BII0ORM" Recent Labs 02/25/25 2345 02/27/25 0010 02/28/25 [...] - 03/01 - 03/02 - Location - [facility] ([facility]) - Pending the following - [...] DO Division of Hospitalist Medicine Inpatient Medical Services/[facility] [1] heparin, 5-30 Units/kg/hr, Last Rate: 18 Units/kg/hr (02/28/25 0714) [2] B complex-vitamin C-folic acid, 1 capsule, Oral, Daily metoprolol tartrate, 25 mg, Oral, BID pantoprazole, 40 mg, Oral, qAM AC piperacillin-tazobactam, 4,500 mg, IntraVENous, q8h QUEtiapine, 25 mg, Oral, Nightly sevelamer carbonate, 800 mg, Oral, TID WC warfarin, 3 mg, Oral, Once Images from the original note were not included. [facility] Wound Care/NPWT Progress Note Jun Snyder [...] for pain with pain medication, per staff climate scientist, prior to wound VAC dressing change. Wet [...] apply Betadine and allow to dry, leave LIVESTOCK HAULIER daily and PRN Left plantar heel - unstageable pressure injury (POA): -cleanse with NS, apply Betadine and allow to dry, leave LIVESTOCK HAULIER daily and PRN Right wrist Abrasion: -cleanse with antibacterial soap/water, leave LIVESTOCK HAULIER daily Sacral Stage 4 pressure injury (POA): [...] to follow Recommend to follow up at [facility] Outpatient wound care center after hospital [...] Date Acute renal failure (ARF) ([facility]) 10/19/2019 Anemia 12/30/2021 Calcification of abdominal aorta (HCC) 10/08/202309/[address] abd Diverticulosis 10/08/2023 ESRD on hemodialysis ([facility]) ([facility]) 10/26/2019 Hemodialysis patient ([facility]) ([facility]) HTN (hypertension) 12/01/2022 Hypertension IgA nephropathy IgA [...] 10/09/2024 Performed by Bob Watson MD at [facility] Cardiac Cath/EP Lab CARDIAC CATHETERIZATION Bilateral 11/01/2024 Performed by Bob Watson MD at [facility] Cardiac Cath/EP Lab CARDIAC CATHETERIZATION N/A 11/01/2024 Performed by Bob Watson MD at [facility] Cardiac Cath/EP Lab COLONOSCOPY N/A 01/24/2025 Performed by Chadd Davis MD at [facility] ENDOSCOPY FISTULAGRAM (HISTORICAL) Left 09/15/2021 LEFT UPPER ARM HX AV FISTULA CREATION IR EMBOLIZATION 10/14/2024 IR EMBOLIZATION 10/14/2024 [facility] SPECIAL PROCEDURES IR FISTULAGRAM 08/07/2022 [...] Gill DO at 03/01/2025 2:50 PM EDT [facility] Anticoagulation Management Service ([facility]) Inpatient Warfarin Consult HPI: Jun Snyder is a 59 y.o. male admitted on 02/20/2025 for Hemoptysis [R04.2]. Medical History[1] Patient is on warfarin for mechanical AVR and has a goal INR 2.0 - 3.0. Patient was referred to [facility], but so far has been managed at facilities, most recently [facility]. Pt's home dose of warfarin [...] initially where they will manage warfarin, and [facility] will take over when discharged from facility. Fatuma Odonnell [facility] Consult Service is available daily [phone] via Exapt[employer] Secure Chat. [1] Past Medical History: Diagnosis Date Acute renal failure (ARF) ([facility]) 10/19/2019 Anemia 12/30/2021 Calcification of abdominal aorta (HCC) 10/08/202309/[address] abd Diverticulosis 10/08/2023 ESRD on hemodialysis ([facility]) ([facility]) 10/26/2019 Hemodialysis patient ([facility]) ([facility]) HTN (hypertension) 12/01/2022 Hypertension IgA nephropathy IgA nephropathy determined by biopsy of kidney 10/26/2019 Missed vaccination due to patient refusal 10/08/2023 Has a number of non-scientific based beliefs which interfere with his understanding and acceptance of the medical benefit of vaccination. Nonrheumatic aortic valve stenosis 10/08/2023 Paroxysmal A-fib (CMS/HCC) ([facility]) 08/18/2023 Tobacco abuse 10/08/2023 Nephrology Progress Note [...] from the original note were not included. [facility] - Infectious Diseases Attending [...] Total Energy Requirements (kcals/day): 30-35 kcal/kg = 4387-9643 kcal Weight Used for Protein Requirements: Current [...] lb) (08/28/24) % Weight Change (Calculated): -34.6 [place] Body Weight (lbs) (Calculated): 166 lbs [place] Body Weight (Kg) (Calculated): 75 kg % [place] Body Weight (Calculated): 81.1 % BMI (kg/m2) [...] to determine Glenys Juares RD, LD Contact: [phone] Images from the original note were not included. PHYSICAL THERAPY [facility] Name/MRN: Jair Snyder ([id number]) Date: 02/27/2025 Request for "see today" note, [...] Anthony Black PT Hospitalist Progress Note - [facility] [employer] ([facility]) 02/27/2025 9:03 AM [phone]: Please page me for patient care issues. [phone]: Please page [facility] - [facility] for any issues. Subjective and Objective: Admit [...] was bright red and it stopped just QUALITY ASSURANCE CALIBRATOR when in transport. Adult diet Regular Dietary Orders (From admission, onward) Start Ordered 02/21/25 1021 Adult diet Regular Diet effective now Question: Diet type Answer: Regular 02/21/25 1021 I/O last 3 completed shifts: In: 750 (12.3 mL/kg) [P.O.:750] Out: 450 (7.4 mL/kg) [Urine:450 (0.2 mL/kg/hr)] Weight: 60.8 kg @IODETAILS@ @[id number]@ Medications: Continuous Meds[1] Scheduled Meds[2] Recent Labs [...] "CHOL" No results found for: "PHART", "PO2ART", "ICJ6CLI" Recent Labs 02/25/25 0028 02/25/25 2345 02/27/25 [...] DO Division of Hospitalist Medicine Inpatient Medical Services/[facility] [1] heparin, 5-30 Units/kg/hr, Last Rate: 18 Units/kg/hr (02/27/25 0722) [2] B complex-vitamin C-folic acid, 1 capsule, Oral, Daily metoprolol tartrate, 25 mg, Oral, BID pantoprazole, 40 mg, Oral, qAM AC piperacillin-tazobactam, 4,500 mg, IntraVENous, q8h QUEtiapine, 25 mg, Oral, Nightly sevelamer carbonate, 800 mg, Oral, TID WC warfarin, 2 mg, Oral, Once [facility] Anticoagulation Management Service ([facility]) Inpatient Warfarin Consult HPI: Jun Snyder is a 59 y.o. male admitted on 02/20/2025 for Hemoptysis [R04.2]. Medical History[1] Patient is on warfarin for mechanical AVR and has a goal INR 2.0 - 3.0. Patient was referred to [facility], but so far has been managed at facilities, most recently [facility]. Pt's home dose of warfarin [...] RPh [facility] Consult Service is available daily [phone] via Exapt[employer] Secure Chat. [1] Past Medical History: Diagnosis Date Acute renal failure (ARF) ([facility]) 10/19/2019 Anemia 12/30/2021 Calcification of abdominal aorta ([facility]) 10/08/202309/[address] abd Diverticulosis 10/08/2023 ESRD on hemodialysis ([facility]) ([facility]) 10/26/2019 Hemodialysis patient ([facility]) ([facility]) HTN (hypertension) 12/01/2022 Hypertension IgA nephropathy IgA nephropathy determined by biopsy of kidney 10/26/2019 Missed vaccination due to patient refusal 10/08/2023 Has a number of non-scientific based beliefs which interfere with his understanding and acceptance of the medical benefit of vaccination. Nonrheumatic aortic valve stenosis 10/08/2023 Paroxysmal A-fib ([facility]) ([facility]) 08/18/2023 Tobacco abuse 10/08/2023 Images from the original note were not included. OCCUPATIONAL THERAPY [facility] Initial Evaluation Name/MRN: Jair Snyder ([id number]) Evaluation Date: 02/26/2025 Date of : 1965 Admission Date: 02/20/2025 5:41 PM Age: 59 y.o. 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 01/12/2025 Acute respiratory failure with hypoxia ([facility]) [J96.01] 01/08/2025 Tracheostomy care ([facility]) [Z43.0] 01/08/2025 Pulmonary embolism ([facility]) 01/08/2025 Sacral osteomyelitis ([facility]) ([facility]) 01/03/2025 Pneumonia of both lungs due to methicillin susceptible Staphylococcus aureus (MSSA) ([facility]) 01/01/2025 Leukocytosis 12/30/2024 Decubitus ulcer of sacral region, unstageable ([facility]) 12/30/2024 Peritonitis due to fungus ([facility]) 11/30/2024 History of abdominal surgery 11/30/2024 Leg DVT (deep venous thromboembolism), acute, left ([facility]) 11/30/2024 Ischemic ulcer of toe of left foot, limited to breakdown of skin ([facility]) 11/30/2024 Tracheostomy dependence ([facility]) 11/30/2024 Pleural effusion 11/28/2024 Gastric ulceration 2024 Atrial flutter, unspecified type ([facility]) 10/03/2024 RSV (acute bronchiolitis due to respiratory syncytial virus) 10/03/2024 Diverticulosis 10/08/2023 Nonrheumatic aortic valve stenosis 10/08/2023 Calcification of abdominal aorta ([facility]) 10/08/2023 Missed vaccination due to patient refusal 10/08/2023 Tobacco abuse 10/08/2023 Alcohol use disorder in remission 10/08/2023 Paroxysmal A-fib ([facility]) ([facility]) 08/18/2023 HTN (hypertension) 12/01/2022 ESRD on hemodialysis ([facility]) ([facility]) 10/26/2019 IgA nephropathy determined by biopsy of kidney 10/26/2019 BRBPR (bright red blood per rectum) 01/19/2025 Aortic stenosis 10/03/2024 Upper GI bleed 10/03/2024 S/P AVR 10/03/2024 Acute hypoxic respiratory failure ([facility]) 10/03/2024 Acute encephalopathy 10/03/2024 Pneumoperitoneum 10/03/2024 Anemia [...] Score: 13 ADL Inpatient [facility] G-Code Modifier: CL Plan Pt would [...] of Care supervision is transferred to a [facility] Therapy Services Occupational Therapist. Goals and/or treatment plan was established in collaboration with patient/family/other representatives. Ro Sales MS, OTR/L [1] Past Medical History: Diagnosis Date Acute renal failure (ARF) ([facility]) 10/19/2019 Anemia 12/30/2021 Calcification of abdominal aorta ([facility]) 10/08/202309/[address] abd Diverticulosis 10/08/2023 ESRD on hemodialysis ([facility]) ([facility]) 10/26/2019 Hemodialysis patient ([facility]) ([facility]) HTN (hypertension) 12/01/2022 Hypertension IgA nephropathy IgA nephropathy determined by biopsy of kidney 10/26/2019 Missed vaccination due to patient refusal 10/08/2023 Has a number of non-scientific based beliefs which interfere with his understanding and acceptance of the medical benefit of vaccination. Nonrheumatic aortic valve stenosis 10/08/2023 Paroxysmal A-fib ([facility]/HCC) (HCC) 08/18/2023 Tobacco abuse 10/08/2023 [2] Past Surgical History: Procedure Laterality Date APPENDECTOMY CARDIAC CATHETERIZATION N/A 10/09/2024 Performed by Bob Watson MD at [facility] Cardiac Cath/EP Lab CARDIAC CATHETERIZATION Bilateral 11/01/2024 Performed by Bob Watson MD at [facility] Cardiac Cath/EP Lab CARDIAC CATHETERIZATION N/A 11/01/2024 Performed by Bob Watson MD at [facility] Cardiac Cath/EP Lab COLONOSCOPY N/A 01/24/2025 Performed by Chadd Davis MD at [facility] ENDOSCOPY FISTULAGRAM (HISTORICAL) Left 09/15/2021 LEFT UPPER ARM HX AV FISTULA CREATION IR EMBOLIZATION 10/14/2024 IR EMBOLIZATION 10/14/2024 [facility] SPECIAL PROCEDURES IR FISTULAGRAM 08/07/2022 [...] bilateral pleural effusions. 5. Cholelithiasis, and diminutive [place] mountain kidneys. Seen by pulm service Started on [...] controlled No CP Adult diet Regular @IODETAILS@ @[id number]@ Medications: Continuous Meds[1] Scheduled Meds[2] Recent Labs [...] coumadin -- [facility] H[facility] PT/OT Will ask surg about PEG remove per request-- out Anticipated Discharge - Date - 02/27 - Location - Skilled Facility - Pending the following - course Total time spent (which include face to face and non face to face encounters) : 46 minutes See orders, continue POC Advance Directive: Full Code Ramón Romano MD, [facility] Hospitalist [1] heparin, 5-30 Units/kg/hr, Last Rate: [...] any questions or concerns Bree Molina APRN HAZARDOUS MATERIALS WASTE TECHNICIAN A-G PLASTIC BUBBLE PACKER [facility] [phone] Pt seen and examined independently by me. I reviewed with, DENIA-HAZARDOUS MATERIALS WASTE TECHNICIAN the medical history and the findings on physical examination. I discussed the patient s diagnosis and concur with the treatment plan as documented in his note. Please call [phone] or message me through Exapt[employer] with any questions or concerns. PULMONOLOGY CONSULT [...] from the original note were not included. [facility] Wound Care/NPWT Progress Note Jun Snyder [...] for pain with pain medication, per staff climate scientist, prior to wound VAC dressing change. Wet [...] apply Betadine and allow to dry, leave LIVESTOCK HAULIER daily and PRN Left plantar heel - [...] to follow Recommend to follow up at [facility] Outpatient wound care center after hospital [...] Date Acute renal failure (ARF) ([facility]) 10/19/2019 Anemia 12/30/2021 Calcification of abdominal aorta ([facility]) 10/08/202309/[address] abd Diverticulosis 10/08/2023 ESRD on hemodialysis ([facility]) ([facility]) 10/26/2019 Hemodialysis patient ([facility]) ([facility]) HTN (hypertension) 12/01/2022 Hypertension IgA nephropathy IgA [...] 10/09/2024 Performed by Bob Watson MD at [facility] Cardiac Cath/EP Lab CARDIAC CATHETERIZATION Bilateral 11/01/2024 Performed by Bob Watson MD at [facility] Cardiac Cath/EP Lab CARDIAC CATHETERIZATION N/A 11/01/2024 Performed by Bob Watson MD at [facility] Cardiac Cath/EP Lab COLONOSCOPY N/A 01/24/2025 Performed by Chadd Davis MD at [facility] ENDOSCOPY FISTULAGRAM (HISTORICAL) Left 09/15/2021 LEFT UPPER ARM HX AV FISTULA CREATION IR EMBOLIZATION 10/14/2024 IR EMBOLIZATION 10/14/2024 [facility] SPECIAL PROCEDURES IR FISTULAGRAM 08/07/2022 [...] needed (PRN constipation). [DISCONTINUED] epoetin rowan-epbx (Retacrit) 98942 UNIT/ML injection Inject 0.79 mL (7,900 Units) under the skin 1 (one) time per week. (Patient not taking: Reported on 02/21/2025) [DISCONTINUED] pantoprazole (ProtoNix) 40 MG injection Infuse 40 mg into a venous catheter 2 times daily. Cosigned by Ahsan Gill DO at 02/26/2025 4:59 PM EDT [facility] Anticoagulation Management Service ([facility]) Inpatient Warfarin Consult HPI: Jun Snyder is a 59 y.o. male admitted on 02/20/2025 for Hemoptysis [R04.2]. Medical History[1] Patient is on warfarin for mechanical AVR and has a goal INR 2.0 - 3.0. Patient was referred to [facility], but so far has been managed at facilities, most recently [facility]. Pt's home dose of warfarin [...] will take over when discharged from facility. Ftauma Odonnell RPh [facility] Consult Service is available daily [phone] via Exaptive Secure Chat. [1] Past Medical History: Diagnosis Date Acute renal failure (ARF) ([facility]) 10/19/2019 Anemia 12/30/2021 Calcification of abdominal aorta ([facility]) 10/08/202309/[address] abd Diverticulosis 10/08/2023 ESRD on hemodialysis ([facility]) ([facility]) 10/26/2019 Hemodialysis patient ([facility]) ([facility]) HTN (hypertension) 12/01/2022 Hypertension IgA nephropathy IgA nephropathy determined by biopsy of kidney 10/26/2019 Missed vaccination due to patient refusal 10/08/2023 Has a number of non-scientific based beliefs which interfere with his understanding and acceptance of the medical benefit of vaccination. Nonrheumatic aortic valve stenosis 10/08/2023 Paroxysmal A-fib ([facility]) ([facility]) 08/18/2023 Tobacco abuse 10/08/2023 Nephrology Progress Note [...] original note were not included. PHYSICAL THERAPY [facility] Initial Evaluation Name/MRN: Jair Snyder ([id number]) Evaluation Date: 02/25/2025 Date of : 1965 Admission Date: 02/20/2025 5:41 PM Age: 59 y.o. 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 01/12/2025 Acute respiratory failure with hypoxia ([facility]) [J96.01] 01/08/2025 Tracheostomy care ([facility]) [Z43.0] 01/08/2025 Pulmonary embolism ([facility]) 01/08/2025 Sacral osteomyelitis ([facility]) ([facility]) 01/03/2025 Pneumonia of both lungs due to methicillin susceptible Staphylococcus aureus (MSSA) ([facility]) 01/01/2025 Leukocytosis 12/30/2024 Decubitus ulcer of sacral region, unstageable ([facility]) 12/30/2024 Peritonitis due to fungus ([facility]) 11/30/2024 History of abdominal surgery 11/30/2024 Leg DVT (deep venous thromboembolism), acute, left ([facility]) 11/30/2024 Ischemic ulcer of toe of left foot, limited to breakdown of skin ([facility]) 11/30/2024 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[facility]) 11/30/2024 Pleural effusion 11/28/2024 Gastric ulceration 2024 Atrial flutter, unspecified type ([facility]) 10/03/2024 RSV (acute bronchiolitis due to respiratory syncytial virus) 10/03/2024 Diverticulosis 10/08/2023 Nonrheumatic aortic valve stenosis 10/08/2023 Calcification of abdominal aorta ([facility]) 10/08/2023 Missed vaccination due to patient refusal 10/08/2023 Tobacco abuse 10/08/2023 Alcohol use disorder in remission 10/08/2023 Paroxysmal A-fib ([facility]) ([facility]) 08/18/2023 HTN (hypertension) 12/01/2022 ESRD on hemodialysis ([facility]) ([facility]) 10/26/2019 IgA nephropathy determined by biopsy of kidney 10/26/2019 BRBPR (bright red blood per rectum) 01/19/2025 Aortic stenosis 10/03/2024 Upper GI bleed 10/03/2024 S/P AVR 10/03/2024 Acute hypoxic respiratory failure ([facility]) 10/03/2024 Acute encephalopathy 10/03/2024 Pneumoperitoneum 10/03/2024 Anemia [...] Raw Score (No Stairs) : 15 [facility] Score: Transferred to chair/commode Plan Pt would [...] of Care supervision is transferred to a [facility] Therapy Services Physical Therapist. Goals and/or treatment plan was established in collaboration with patient/family/other representatives. [1] Past Medical History: Diagnosis Date Acute renal failure (ARF) ([facility]) 10/19/2019 Anemia 12/30/2021 Calcification of abdominal aorta ([facility]) 10/08/202309/[address] abd Diverticulosis 10/08/2023 ESRD on hemodialysis ([facility]) ([facility]) 10/26/2019 Hemodialysis patient ([facility]) ([facility]) HTN (hypertension) 12/01/2022 Hypertension IgA nephropathy IgA nephropathy determined by biopsy of kidney 10/26/2019 Missed vaccination due to patient refusal 10/08/2023 Has a number of non-scientific based beliefs which interfere with his understanding and acceptance of the medical benefit of vaccination. Nonrheumatic aortic valve stenosis 10/08/2023 Paroxysmal A-fib ([facility]) ([facility]) 08/18/2023 Tobacco abuse 10/08/2023 [2] Past Surgical History: Procedure Laterality Date APPENDECTOMY CARDIAC CATHETERIZATION N/A 10/09/2024 Performed by Bob Watson MD at [facility] Cardiac Cath/EP Lab CARDIAC CATHETERIZATION Bilateral 11/01/2024 Performed by Bob Watson MD at [facility] Cardiac Cath/EP Lab CARDIAC CATHETERIZATION N/A 11/01/2024 Performed by Bob Watson MD at [facility] Cardiac Cath/EP Lab COLONOSCOPY N/A 01/24/2025 Performed by Chadd Davis MD at [facility] ENDOSCOPY FISTULAGRAM (HISTORICAL) Left 09/15/2021 LEFT UPPER ARM HX AV FISTULA CREATION IR EMBOLIZATION 10/14/2024 IR EMBOLIZATION 10/14/2024 [facility] SPECIAL PROCEDURES IR FISTULAGRAM 08/07/2022 IR FISTULAGRAM 08/07/2022 [facility] IR IMAGING TONSILLECTOMY (HISTORICAL) Hospitalist Progress Note [...] bilateral pleural effusions. 5. Cholelithiasis, and diminutive [place] kidneys. Seen by pulm service Started on IV abx Started on heparin gtt as well Interval History: pt feels ok Some dizziness at times No more bleeding issues 02/23 Pt awake Reports his PEG is uncomfortable-- wants removed if able No CP 02/24 Pt awake Some cough at times Sob better 02/25 Pt awake No sob today No CP Adult diet Regular @IODETAILS@ @[id number]@ Medications: Continuous Meds[1] Scheduled Meds[2] Recent Labs [...] Advance Directive: Full Code Ramón Romano MD, [facility] Hospitalist [1] heparin, 5-30 Units/kg/hr, Last Rate: 18 Units/kg/hr (02/26/25 0736) [2] B complex-vitamin C-folic acid, 1 capsule, Oral, Daily metoprolol tartrate, 25 mg, Oral, BID pantoprazole, 40 mg, Oral, qAM AC piperacillin-tazobactam, 4,500 mg, IntraVENous, q8h QUEtiapine, 25 mg, Oral, Nightly sevelamer carbonate, 800 mg, Oral, TID WC warfarin, 1.5 mg, Oral, Once [facility] Anticoagulation Management Service ([facility]) Inpatient Warfarin Consult HPI: Jun Snyder is a 59 y.o. male admitted on 02/20/2025 for Hemoptysis [R04.2]. Medical History[1] Patient is on warfarin for mechanical AVR and has a goal INR 2.0 - 3.0. Patient was referred to [facility], but so far has been managed at facilities, most recently [facility]. Pt's home dose of warfarin [...] PharmD [facility] Consult Service is available daily [phone] via [employer] Secure Chat. [1] Past Medical History: Diagnosis Date Acute renal failure (ARF) ([facility]) 10/19/2019 Anemia 12/30/2021 Calcification of abdominal aorta ([facility]) 10/08/202309/[address] abd Diverticulosis 10/08/2023 ESRD on hemodialysis ([facility]) ([facility]) 10/26/2019 Hemodialysis patient ([facility]) ([facility]) HTN (hypertension) 12/01/2022 Hypertension IgA nephropathy IgA nephropathy determined by biopsy of kidney 10/26/2019 Missed vaccination due to patient refusal 10/08/2023 Has a number of non-scientific based beliefs which interfere with his understanding and acceptance of the medical benefit of vaccination. Nonrheumatic aortic valve stenosis 10/08/2023 Paroxysmal A-fib ([facility]) ([facility]) 08/18/2023 Tobacco abuse 10/08/2023 Vancomycin therapy has been discontinued by Hussain Quintana on 02/24. Thank you for the consult. Pharmacy signing off for vancomycin dosing. Marissa Iglesias PharmD, Date: 02/24/25 Time: 4:08 PM Images from the original note were not included. [facility] - Infectious Diseases Attending [...] bilateral pleural effusions. 5. Cholelithiasis, and diminutive ute mountain kidneys. Seen by pulm service Started on IV abx Started on heparin gtt as well Interval History: pt feels ok Some dizziness at times No more bleeding issues 02/23 Pt awake Reports his PEG is uncomfortable-- wants removed if able No CP 02/24 Pt awake Some cough at times Sob better Adult diet Regular @IODETAILS@ @[email or web address]@ Medications: Continuous Meds[1] Scheduled Meds[2] Recent Labs [...] Advance Directive: Full Code Ramón Romano MD, [facility] Hospitalist [1] heparin, 5-30 Units/kg/hr, Last Rate: 18 Units/kg/hr (02/24/25 0736) [2] B complex-vitamin C-folic acid, 1 capsule, Oral, Daily metoprolol tartrate, 25 mg, Oral, BID pantoprazole, 40 mg, Oral, qAM AC QUEtiapine, 25 mg, Per G Tube, Nightly sevelamer carbonate, 800 mg, Oral, TID WC vancomycin (Vancocin) intermittent dosing (placeholder), , Other, RX Placeholder [facility] Anticoagulation Management Service ([facility]) Inpatient Warfarin Consult HPI: Jun Snyder is a 59 y.o. male admitted on 02/20/2025 for Hemoptysis [R04.2]. Medical History[1] Patient is on warfarin for mechanical AVR and has a goal INR 2.0 - 3.0. Patient was referred to [facility], but so far has been managed at facilities, most recently [facility]. Pt's home dose of warfarin [...] PharmD [facility] Consult Service is available daily [phone] via [employer] Secure Chat. [1] Past Medical History: Diagnosis Date Acute renal failure (ARF) ([facility]) 10/19/2019 Anemia 12/30/2021 Calcification of abdominal aorta ([facility]) 10/08/202309/[address] abd Diverticulosis 10/08/2023 ESRD on hemodialysis ([facility]) ([facility]) 10/26/2019 Hemodialysis patient ([facility]) ([facility]) HTN (hypertension) 12/01/2022 Hypertension IgA nephropathy IgA nephropathy determined by biopsy of kidney 10/26/2019 Missed vaccination due to patient refusal 10/08/2023 Has a number of non-scientific based beliefs which interfere with his understanding and acceptance of the medical benefit of vaccination. Nonrheumatic aortic valve stenosis 10/08/2023 Paroxysmal A-fib (CMS/HCC) (HCC) 08/18/2023 Tobacco abuse 10/08/2023 Images from the original note were not included. [facility] - Infectious Diseases Attending [...] the original note were not included. [facility] [phone] PULMONARY PROGRESS NOTE. Patient - Jun Snyder, [...] PM EDT I have personally performed a dapb-pc-uwwy diagnostic evaluation on this patient on date of service 02/23/25. History, labs, imaging studies, and electronic medical record have been reviewed by me. This note documented by the [x]supervisor housecleaner []ARMIN reflects my history, exam, and medical [...] weekend. Please reach out with any concerns [facility] Anticoagulation Management Service ([facility]) Inpatient Warfarin Consult HPI: Jun Snyder is a 59 y.o. male admitted on 02/20/2025 for Hemoptysis [R04.2]. Medical History[1] Patient is on warfarin for mechanical AVR and has a goal INR 2.0 - 3.0. Patient was referred to [facility], but so far has been managed at facilities, most recently [facility]. Pt's home dose of warfarin [...] PharmD [facility] Consult Service is available daily [phone] via Ex[employer] Secure Chat. [1] Past Medical History: Diagnosis Date Acute renal failure (ARF) ([facility]) 10/19/2019 Anemia 12/30/2021 Calcification of abdominal aorta ([facility]) 10/08/202309/[address] abd Diverticulosis 10/08/2023 ESRD on hemodialysis ([facility]) ([facility]) 10/26/2019 Hemodialysis patient ([facility]) ([facility]) HTN (hypertension) 12/01/2022 Hypertension IgA nephropathy IgA nephropathy determined by biopsy of kidney 10/26/2019 Missed vaccination due to patient refusal 10/08/2023 Has a number of non-scientific based beliefs which interfere with his understanding and acceptance of the medical benefit of vaccination. Nonrheumatic aortic valve stenosis 10/08/2023 Paroxysmal A-fib ([facility]) ([facility]) 08/18/2023 Tobacco abuse 10/08/2023 Hospitalist Progress Note [...] bilateral pleural effusions. 5. Cholelithiasis, and diminutive ute mountain kidneys. Seen by pulm service Started on IV abx Started on heparin gtt as well Interval History: pt feels ok Some dizziness at times No more bleeding issues 02/23 Pt awake Reports his PEG is uncomfortable-- wants removed if able No CP Adult diet Regular @IODETAILS@ @[email or web address]@ Medications: Continuous Meds[1] Scheduled Meds[2] Recent Labs 02/21/255202/22/259902/23/25 0032 WBC 7.0 9.0 [...] from the original note were not included. [facility] Wound Care/NPWT Progress Note Jun Snyder [...] pain with PO pain medication, per staff climate scientist, prior to wound VAC dressing change. Wet [...] apply Betadine and allow to dry, leave LIVESTOCK HAULIER daily and PRN Right wrist Abrasion: -cleanse with antibacterial soap/water, leave LIVESTOCK HAULIER daily Sacral Stage 4 pressure injury (POA): [...] to follow Recommend to follow up at [facility] Outpatient wound care center after hospital [...] Date Acute renal failure (ARF) ([facility]) 10/19/2019 Anemia 12/30/2021 Calcification of abdominal aorta ([facility]) 10/08/202309/[address] abd Diverticulosis 10/08/2023 ESRD on hemodialysis ([facility]) ([facility]) 10/26/2019 Hemodialysis patient ([facility]) ([facility]) HTN (hypertension) 12/01/2022 Hypertension IgA nephropathy IgA nephropathy determined by biopsy of kidney 10/26/2019 Missed vaccination due to patient refusal 10/08/2023 Has a number of non-scientific based beliefs which interfere with his understanding and acceptance of the medical benefit of vaccination. Nonrheumatic aortic valve stenosis 10/08/2023 Paroxysmal A-fib ([facility]) ([facility]) 08/18/2023 Tobacco abuse 10/08/2023 [2] Past Surgical History: Procedure Laterality Date APPENDECTOMY CARDIAC CATHETERIZATION N/A 10/09/2024 Performed by Bob Watson MD at [facility] Cardiac Cath/EP Lab CARDIAC CATHETERIZATION Bilateral 11/01/2024 Performed by Bob Watson MD at [facility] Cardiac Cath/EP Lab CARDIAC CATHETERIZATION N/A 11/01/2024 Performed by Bob Watson MD at [facility] Cardiac Cath/EP Lab COLONOSCOPY N/A 01/24/2025 Performed by Chadd Davis MD at [facility] ENDOSCOPY FISTULAGRAM (HISTORICAL) Left 09/15/2021 LEFT UPPER ARM HX AV FISTULA CREATION IR EMBOLIZATION 10/14/2024 IR EMBOLIZATION 10/14/2024 [facility] SPECIAL PROCEDURES IR FISTULAGRAM 08/07/2022 [...] needed (PRN constipation). [DISCONTINUED] epoetin rowan-epbx (Retacrit) 00858 UNIT/ML injection Inject 0.79 mL (7,900 Units) [...] 93.0 PLT 316 282 316 Recent Labs 02/21/255202/22/259902/23/25 [...] any questions or concerns Bree Molina APRN HAZARDOUS MATERIALS WASTE TECHNICIAN A-G PLASTIC BUBBLE PACKER [facility] [phone] Pt seen and examined independently by me. I reviewed with DENIA-SAMIA the medical history and the findings on physical examination. I discussed the patient s diagnosis and concur with the treatment plan as documented in his note. Please call [phone] or message me through Exapt[employer] with any questions or concerns. Pharmacy Managed [...] [] CrCl ml/min (Cockcroft-Gault, if BLOSSOM, no DOT NET ARCHITECT) Infectious Diagnosis: Pneumonia (target level = 15-20 [...] 4:36 PM Daryn Babcock PharmD (available on [employer]) Images from the original note were not included. [facility] [place] [phone] PULMONARY PROGRESS NOTE. Patient - Jun Snyder, [...] PM EDT I have personally performed a bomp-gx-ymwb diagnostic evaluation on this patient on date of service 02/22/2025. History, labs, imaging studies, and electronic medical record have been reviewed by me. This note documented by the [x]supervisor housecleaner []ARMIN reflects my history, exam, and medical [...] bilateral pleural effusions. 5. Cholelithiasis, and diminutive ute mountain kidneys. Seen by pulm service Started on IV abx Started on heparin gtt as well Interval History: pt feels ok Some dizziness at times No more bleeding issues Adult diet Regular @IODETAILS@ @[email or web address]@ Medications: Continuous Meds[1] Scheduled Meds[2] Recent Labs 02/20/25 1825 02/21/25 0053 02/22/25 [...] 5-30 Units/kg/hr, Last Rate: 18 Units/kg/hr (02/22/25 0708) [2] B complex-vitamin C-folic acid, 1 capsule, Oral, Daily metoprolol tartrate, 25 mg, Oral, BID pantoprazole, 40 mg, Oral, qAM AC piperacillin-tazobactam, 2,250 mg, IntraVENous, q6h QUEtiapine, 25 mg, Per G Tube, Nightly sevelamer carbonate, 800 mg, Oral, TID WC vancomycin (Vancocin) intermittent dosing (placeholder), , Other, RX Placeholder Images from the original note were not included. OCCUPATIONAL THERAPY [facility] Name/MRN: Jair Snyder ([id number]) Date: 02/22/2025 PT refusing to participate in [...] Intake/Output Summary (Last 24 hours) at 02/22/2025 0934 Last data filed at 02/22/2025 0529 Gross [...] any questions or concerns Bree Molina APRN HAZARDOUS MATERIALS WASTE TECHNICIAN A-G PLASTIC BUBBLE PACKER [facility] [phone] Pt seen and examined independently by me. I reviewed with DENIA-SAMIA the medical history and the findings on physical examination. I discussed the patient s diagnosis and concur with the treatment plan as documented in his note. Please call [phone] or message me through [employer] with any questions or concerns. Images from the original note were not included. PHYSICAL THERAPY [facility] Name/MRN: Jair Snyder ([id number]) Date: 02/22/2025 Pt declined to work with therapy at this time, stating he wants to wait until after the wound vac is put on. Will reattempt at a later date. Sangeeta Sarabia PT Images from the original note were not included. PHYSICAL THERAPY [facility] Name/MRN: Jair Snyder ([id number]) Date: 02/21/2025 Pt declined to work with [...] Time 17 min documented in this encounter [facility] 03-05-2025 Miscellaneous Notes Formattin g of this note might be different from the original. Auth is now pending with [facility] for [facility]. Auth ID: [id number] . The insurance needs PT and OT notes- as PT note yesterday incomplete , they are both requested . Confirmed pickup time of 4:00pm on 03/05/25 by transport [facility] at phone number [phone]. Location of facility drop off is [facility]. Facility notified via [facility], TCC notified on secure chat. Discharge med list transmitted to [facility] per TCC request. Tcc requested transport to be set up at 4 PM to permit auth to be ongoing- facility can accept- just requested it be started today - body straightener notified, and discharge orders faxed, will confirm in secure chat the time and notify the tx team , orders in epic , rosendo done, [facility] . TCC requested OT notes this am - for ongoing auth - PT INR is now good 1.8 , notified facility want to send today , auth was only good thru 03/02 notified [facility] to confirm about auth requirements again today .. Transport in will call, wound VAC to go with patient, discharge orders in [facility] , LIVES at facility LTC - the facility wants to skill- [facility] working with them to have him discharge later today - transport in will call . [facility] notified to send [facility] and [facility] Problem: Knowledge Deficit Goal: Patient/family/caregiver demonstrates [...] Note DC plan is return to ECF/SNF- [facility], no auth needed to return [...] Progress Note 03/03/25 1025 Rapid Rounds Attendance Medical Record Coder Planned Discharge Disposition [facility] ([facility], is LTC no AUTH needed) Today we still await Other (INR >or = 1.8 per [facility]) Clinical stability Attending completion of discharge workflow Additional Comments: We have a skilled AUTH that expires midnight tonight, however facility will still accept without AUTH per previous CM notes This Medical Record Coder was tasked to follow this patient through the weekend. Chart and [facility]port were reviewed. INR this am is 1.6, subtherapeutic. Facility updated. Transportation is in will call. regional business manager will continue to follow for transitional [...] med list and updated notes transmitted to [facility] via [facility] per TCC request. Per [...] labs post at snf to follow . Floor Service Worker [place] tasked to send wound vac and clinicals- requested PT/OT notes for ongoing auth . Rosendo done- transport in will call to return to [facility] where he lives facility did want [...] Roundtrip in will call per TCC. Tasked JEWELRY DRILL OPERATOR to set up transport in will call, [...] therapy to start auth for [facility]. Continues on IV antibiotics. On a heparin gtt. SMS following to change to Coumadin. INR 13 today. Plan is to return to [facility]. . Length of Stay (Days): 7 GMLOS: [...] therapy notes. Want to skill him at [facility]. Started on IV antibiotics for aspiration pneumonia. Continues on a heparin gtt. . Updated notes sent to [facility] per [facility] request. Await review and response regarding [...] pressure injuries/wounds this shift so RN SHAQ [facility] would prefer to SKILL patient- [...] Interventions Goal: Promote nutritional intake Outcome: Progressing [facility] would prefer to SKILL patient- LTC. + bedhold will return - has woundVAC and ivab on hep gtt, not ready for discharge , [facility] tasked to send clinicals facility is updated . Updated notes sent to [facility] per [facility] request. Await review and [...] intake Outcome: Not Progressing Has dialysis at [facility], [facility].. Pt came to ER from dialysis due to hemoptysis. Had a trach removed 01/19. He is a bed hold at [facility]. They would like to skill him if able. Unable to tell me where he went to dialysis this am, asking facility. Referral placed to [facility] Return [facility] via [facility] per TCC request. [...] of blood components. documented in this encounter [facility] 03-05-2025 Note [facility] tem [facility] 03-05-2025 Hospital course Narrative Images from the original note were not included. Hospitalist Discharge Summary - [facility] [employer] ([facility]) Jun Snyder : 1965 Admit date: 02/20/2025 Discharge date: 03/05/2025 Admitting Physician: Bettye Pierre MD Primary Care Physician: Leilani Troncoso Recommended Follow-up: [facility] Wound Ostomy [address] [facility] [address] [place] [facility] [address] [place] [address] [facility] [address] Call Call and schedule appointment in [...] "CHOL" No results found for: "PHART", "PO2ART", "LCC0DHR" Recent Labs 03/04/25 0156 03/04/25 0946 03/05/25 [...] bilateral pleural effusions. 5. Cholelithiasis, and diminutive ute mountain kidneys. Report Dictated on Electronically Signed By: [...] Your Medications These medications were sent to [facility] [address] [place] [address] [address] [facility] [address] [facility] [address] metoprolol tartrate 25 MG tablet pantoprazole 40 MG EC tablet QUEtiapine 25 MG tablet sevelamer carbonate 800 MG tablet You can get these medications from any pharmacy Bring a paper prescription for each of these medications oxyCODONE 5 MG immediate release tablet Signed: Anthony Hurtado DO 03/05/2025, 9:30 AM documented in this encounter [facility] 03-03-2025 Nurse Note Patient Name: Jun Snyder Patient : 1965 Acct: [id number] Date of Admission: 02/20/2025 [facility] A Code Status: Full Code Allergies: [...] (L) 03/03/2025211 PLT 397 03/03/2025211 NA 140 03/03/2025 0212 K 6.2 (HH) 03/03/2025 021 CL 101 03/03/2025 0212 CO2 28 03/03/2025211 BUN 26 (H) 03/03/2025 021 CREATININE 3.21 (H) 03/03/2025211 CREATININE 9.99 (H) 10/27/2019 0545 CALCIUM 9.8 03/03/2025211 PHOS 2.6 02/23/2025 0032 IV Drips and Rate/Dose Continuous Meds[3] Safety - Before each treatment: Dialysis Machine No.: [id number] RO Machine Number: [id number] Dialyzer Lot No.: [id number] Tubing Lot Number: [id number] [employer] Secure: Yes Venous Parameters Set: Yes Arterial Parameters Set: Yes NS Bag: Yes Saline Line Double Clamped: Yes Dialyzer: Nipro Prime Volume (mL): 200 mL RO Machine Number: [id number] RO Machine Log Sheet Completed: Yes Machine Alarm Self Test: Completed, Passed (03/03/25 0740) Air Foam Detector: Tested, Proper Function, pH Reading Extracorporeal Circuit Tested for Integrity: Yes Machine Conductivity: 13.7 Manual Conductivity: 13.6 Manual Ph: 7 Bleach Test (Neg): Yes Bath Temperature: 36 C (96.8 F) Conductivity Meter Serial #: [id number] Machine Functioning Alarm Free? Yes Dialysis Bath: K+ (Potassium): 2 Ca+ (Calcium): 2.5 Na+ (Sodium): 137 HCO3 (Bicarb): 35 Bicarbonate Concentrate Lot No.: [id number] Acid Concentrate Lot No.: [id number] Chlorine Testing - Before each treatment and [...] pt sleeping, removed 214303/03/25 1230 350 mL/min 43182 ml/hr -70 mmHg 170 mmHg 80 600 [...] Diagnosis Anemia Paroxysmal A-fib ([facility]) ([facility]) HTN (hypertension) ESRD on hemodialysis ([facility]) ([facility]) IgA nephropathy determined by biopsy of kidney Diverticulosis Nonrheumatic aortic valve stenosis Calcification of abdominal aorta ([facility]) Missed vaccination due to patient refusal Tobacco abuse Alcohol use disorder in remission Atrial flutter, unspecified type ([facility]) RSV (acute bronchiolitis due to respiratory syncytial virus) Aortic stenosis Upper GI bleed S/P AVR Acute hypoxic respiratory failure ([facility]) Acute encephalopathy Pneumoperitoneum Gastric ulceration Severe malnutrition ([facility]) ([facility]) Pleural effusion Peritonitis due to fungus ([facility]) History of abdominal surgery Leg DVT (deep venous thromboembolism), acute, left ([facility]) Ischemic ulcer of toe of left foot, limited to breakdown of skin ([facility]) Tracheostomy dependence ([facility]) Leukocytosis Decubitus ulcer of sacral region, unstageable ([facility]) Pneumonia of both lungs due to methicillin susceptible Staphylococcus aureus (MSSA) ([facility]) Sacral osteomyelitis ([facility]) ([facility]) Acute respiratory failure with hypoxia ([facility]) [J96.01] Tracheostomy care ([facility]) [Z43.0] Pulmonary embolism ([facility]) MCFP (current) use of antibiotics Complication of tracheostomy ([facility]) ([facility]) BRBPR (bright red blood per rectum) Hemoptysis [3] heparin, 5-30 Units/kg/hr, Last Rate: 20 Units/kg/hr (03/03/25 0707) In patient's chart, d/t patient being on his call light excessively and finally telling me he wants something for pain. Please see eMAR for administration Patient Name: Jun Snyder Patient : 1965 Acct: [id number] Date of Admission: 02/20/2025 [facility] A Code Status: Full Code Allergies: [...] - Before each treatment: Dialysis Machine No.: [id number] RO Machine Number: [id number] Dialyzer Lot No.: [id number] Tubing Lot Number: [id number] [employer] Secure: Yes Venous Parameters Set: Yes Arterial Parameters Set: Yes NS Bag: Yes Saline Line Double Clamped: Yes Dialyzer: Nipro Prime Volume (mL): 200 mL RO Machine Number: [id number] RO Machine Log Sheet Completed: Yes Machine Alarm Self Test: Completed, Passed (03/01/25 0749) Air Foam Detector: Tested, Proper Function, pH Reading Extracorporeal Circuit Tested for Integrity: Yes Machine Conductivity: 13.6 Manual Conductivity: 13.5 Manual Ph: 7.2 Bleach Test (Neg): Yes Bath Temperature: 36 C (96.8 F) Conductivity Meter Serial #: [id number] Machine Functioning Alarm Free? Yes Dialysis Bath: K+ (Potassium): 3 Ca+ (Calcium): 2.5 Na+ (Sodium): 137 HCO3 (Bicarb): 35 Bicarbonate Concentrate Lot No.: [id number] Acid Concentrate Lot No.: [id number] Chlorine Testing - Before each treatment and every 4 hours: Time On: 08 Time Off: 1131 Treatment Goal: 2L Weight [...] 70 600 Yes pt remains asleep, removed 12003/01/25 1015 350 mL/min 830 ml/hr -120 mmHg [...] (hypertension) ESRD on hemodialysis ([facility]) ([facility]) IgA nephropathy determined by biopsy of kidney Diverticulosis Nonrheumatic aortic valve stenosis Calcification of abdominal aorta (HCC) Missed vaccination due to patient refusal Tobacco abuse Alcohol use disorder in remission Atrial flutter, unspecified type ([facility]) RSV (acute bronchiolitis due to respiratory syncytial virus) Aortic stenosis Upper GI bleed S/P AVR Acute hypoxic respiratory failure ([facility]) Acute encephalopathy Pneumoperitoneum Gastric ulceration Severe malnutrition (CMS/HCC) ([facility]) Pleural effusion Peritonitis due to fungus ([facility]) History of abdominal surgery Leg DVT (deep venous thromboembolism), acute, left ([facility]) Ischemic ulcer of toe of left foot, limited to breakdown of skin ([facility]) Tracheostomy dependence ([facility]) Leukocytosis Decubitus ulcer of sacral region, unstageable ([facility]) Pneumonia of both lungs due to methicillin susceptible Staphylococcus aureus (MSSA) ([facility]) Sacral osteomyelitis ([facility]) ([facility]) Acute respiratory failure with hypoxia ([facility]) [J96.01] Tracheostomy care ([facility]) [Z43.0] Pulmonary embolism ([facility]) MCFP (current) use of antibiotics Complication of tracheostomy ([facility] [place] ([facility] [place]) BRBPR (bright red blood per rectum) Hemoptysis [...] room, and the patients agitation. Nurse manager freelance notified maintenance of the problem, and also [...] nurses aides cannot leave the floor to coal picker his packages, and pt was agreeable to this as well. Patient Name: Jun Snyder Patient : 1965 Acct: [id number] Date of Admission: 02/20/2025 [facility] A Code Status: Full Code Allergies: [...] (0) 3 Regular None (Room air) [place] Warm;Dry;No swelling Soft Active 02/27/25 1202 Alert (0) 3 Regular None (Room air) [place] Warm Soft -- 02/27/25 1240 -- -- [...] - Before each treatment: Dialysis Machine No.: [id number] RO Machine Number: [id number] Dialyzer Lot No.: [id number] Tubing Lot Number: [id number] All Connections Secure: Yes Venous Parameters Set: Yes Arterial Parameters Set: Yes NS Bag: Yes Saline Line Double Clamped: Yes Dialyzer: Nipro Prime Volume (mL): 200 mL RO Machine Number: [id number] RO Machine Log Sheet Completed: Yes Machine Alarm Self Test: Completed, Passed (02/27/25 0745) Air Foam Detector: Tested, Proper Function, pH Reading Extracorporeal Circuit Tested for Integrity: Yes Machine Conductivity: 13.7 Manual Conductivity: 143.6 Manual Ph: 7 Bleach Test (Neg): Yes Bath Temperature: 36 C (96.8 F) Conductivity Meter Serial #: [id number] Machine Functioning Alarm Free? Yes Dialysis Bath: K+ (Potassium): 3 Ca+ (Calcium): 2.5 Na+ (Sodium): 137 HCO3 (Bicarb): 35 Bicarbonate Concentrate Lot No.: [id number] Acid Concentrate Lot No.: [id number] Chlorine Testing - Before each treatment and every 4 hours: Time On: 842 Time Off: 3 Treatment Goal: 2L Weight Height: 177.8 [...] Diagnosis Anemia Paroxysmal A-fib ([facility] [place]) ([facility] [place]) HTN (hypertension) ESRD on hemodialysis ([facility] [place]) ([facility] [place]) IgA nephropathy determined by biopsy of kidney Diverticulosis Nonrheumatic aortic valve stenosis Calcification of abdominal aorta ([facility] [place]) Missed vaccination due to patient refusal Tobacco abuse Alcohol use disorder in remission Atrial flutter, unspecified type ([facility] [place]) RSV (acute bronchiolitis due to respiratory syncytial virus) Aortic stenosis Upper GI bleed S/P AVR Acute hypoxic respiratory failure ([facility] [place]) Acute encephalopathy Pneumoperitoneum Gastric ulceration Severe malnutrition ([facility]/H[facility]) ([facility] [place]) Pleural effusion Peritonitis due to fungus ([facility] [place]) History of abdominal surgery Leg DVT (deep venous thromboembolism), acute, left ([facility] [place]) Ischemic ulcer of toe of left foot, limited to breakdown of skin ([facility] [place]) Tracheostomy dependence ([facility] [place]) Leukocytosis Decubitus ulcer of sacral region, unstageable ([facility] [place]) Pneumonia of both lungs due to methicillin susceptible Staphylococcus aureus (MSSA) ([facility] [place]) Sacral osteomyelitis ([facility] [place]) ([facility] [place]) Acute respiratory failure with hypoxia ([facility] [place]) [J96.01] Tracheostomy care ([facility] [place]) [Z43.0] Pulmonary embolism ([facility] [place]) MCFP (current) use of antibiotics Complication of tracheostomy ([facility] [place]) ([facility] [place]) BRBPR (bright red blood per rectum) Hemoptysis [...] and will see if the day shift hospital secretary can put a request in. 232- Notified Dr. Hathaway of patient complaint of SOB and worsening chest pain that he described as dull and tight. Vitals WDL. STAT EKG ordered, patient given Nitrostat, and troponin sent down. 233- Notified DOT NET ARCHITECT to assess the patient. Patient Name: Jun Snyder Patient : 1965 Acct: [id number] Date of Admission: 02/20/2025 [facility] A Code Status: Full Code Allergies: [...] 003 NA 135 (L) 02/23/202531 K 4.1 02/23/2025 003 CL 99 02/23/20252 CO2 25 02/23/2025 0032 BUN 21 02/23/2025 003 CREATININE 2.78 (H) 02/23/2025 003 CREATININE 9.99 (H) 10/27/2019 0545 CALCIUM 9.2 02/23/2025 0032 PHOS 2.6 02/23/2025 003 IV Drips and Rate/Dose Continuous Meds[3] Safety - Before each treatment: Dialysis Machine No.: [id number] RO Machine Number: [id number] Dialyzer Lot No.: [id number] Tubing Lot Number: [id number] All Connections Secure: Yes Venous Parameters Set: Yes Arterial Parameters Set: Yes NS Bag: Yes Saline Line Double Clamped: Yes Dialyzer: Nipro Prime Volume (mL): 200 mL RO Machine Number: [id number] RO Machine Log Sheet Completed: Yes Machine Alarm Self Test: Completed, Passed (02/24/25 0810) Air Foam Detector: Tested, Proper Function, pH Reading Extracorporeal Circuit Tested for Integrity: Yes Machine Conductivity: 13.7 Manual Conductivity: 13.7 Manual Ph: 7 Bleach Test (Neg): Yes Bath Temperature: 36 C (96.8 F) Conductivity Meter Serial #: [id number] Machine Functioning Alarm Free? Yes Dialysis Bath: K+ (Potassium): 3 Ca+ (Calcium): 2.5 Na+ (Sodium): 137 HCO3 (Bicarb): 35 Bicarbonate Concentrate Lot No.: [id number] Acid Concentrate Lot No.: [id number] Chlorine Testing - Before each treatment and every 4 hours: Time On: 1112 Time Off: 1412 Treatment Goal: 2L Weight [...] feed based on dietary recommendations) Provider Name: [facility] Provider Role: Hospitalist Method of Communication: Secure [...] Diagnosis Anemia Paroxysmal A-fib ([facility] [place]) ([facility] [place]) HTN (hypertension) ESRD on hemodialysis ([facility] [place]) ([facility] [place]) IgA nephropathy determined by biopsy of kidney Diverticulosis Nonrheumatic aortic valve stenosis Calcification of abdominal aorta ([facility] [place]) Missed vaccination due to patient refusal Tobacco abuse Alcohol use disorder in remission Atrial flutter, unspecified type ([facility] [place]) RSV (acute bronchiolitis due to respiratory syncytial virus) Aortic stenosis Upper GI bleed S/P AVR Acute hypoxic respiratory failure ([facility] [place]) Acute encephalopathy Pneumoperitoneum Gastric ulceration Severe malnutrition ([facility] [place]) ([facility] [place]) Pleural effusion Peritonitis due to fungus ([facility] [place]) History of abdominal surgery Leg DVT (deep venous thromboembolism), acute, left (HCC) Ischemic ulcer of toe of left foot, 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) Tracheostomy dependence ([facility] [place]) Leukocytosis Decubitus ulcer of sacral region, unstageable ([facility] [place]) Pneumonia of both lungs due to methicillin susceptible Staphylococcus aureus (MSSA) ([facility] [place]) Sacral osteomyelitis ([facility] [place]) (HCC) Acute respiratory failure with hypoxia ([facility] [place]) [J96.01] Tracheostomy care ([facility] [place]) [Z43.0] Pulmonary embolism ([facility] [place]) MCFP (current) use of antibiotics Complication of tracheostomy ([facility] [place]) ([facility] [place]) BRBPR (bright red blood per rectum) Hemoptysis [3] heparin, 5-30 Units/kg/hr, Last Rate: 18 Units/kg/hr (02/24/25 1603) Patient continuing to order packages when he was instructed not to, multiple times, while at the hospital. Dispatch called [employer] and said a package came to the director of email marketing but they will not have access to retreive until Wednesday morning. It is locked over the weekend. Wound Care consulted for Pressure Injury Prevention. Pt's Kee score= 13 on 02/23 Pt's pressure points assessed. Pt's Right Heel, Elbows, Occiput and ears all intact. Pt currently followed by Wound PLASTIC BUBBLE PACKER group for wounds to left toes, left plantar heel, right wrist, and sacrum with wound vac. For left toes, left heel, right wrist, and sacral wound assessments and treatment plan, please see Wound/Ostomy PLASTIC BUBBLE PACKER progress notes. [place] sheet noted at bedside and not on [...] Name: Jun Snyder Patient : 1965 Acct: [id number] Date of Admission: 02/20/2025 [facility] A Code Status: Full Code Allergies: [...] 0545 CALCIUM 9.2 02/22/202599 PHOS 3.2 02/22/2025 010 IV Drips and Rate/Dose Continuous Meds[3] Safety - Before each treatment: Dialysis Machine No.: [id number] RO Machine Number: [id number] Dialyzer Lot No.: [id number] Tubing Lot Number: [id number] All Connections Secure: Yes Venous Parameters Set: Yes Arterial Parameters Set: Yes NS Bag: Yes Saline Line Double Clamped: Yes Dialyzer: Nipro Prime Volume (mL): 200 mL RO Machine Number: [id number] RO Machine Log Sheet Completed: Yes Machine Alarm Self Test: Completed, Passed (test passed at 0938) (02/22/25 0940) Air Foam Detector: Tested, Proper Function, pH Reading Extracorporeal Circuit Tested for Integrity: Yes Machine Conductivity: 13.7 Manual Conductivity: 13.8 Manual Ph: 7 Bleach Test (Neg): Yes (water check negative at 1215) Bath Temperature: 36 C (96.8 F) Conductivity Meter Serial #: [id number] Machine Functioning Alarm Free? Yes Dialysis Bath: K+ (Potassium): 3 Ca+ (Calcium): 2 Na+ (Sodium): 137 HCO3 (Bicarb): 35 Bicarbonate Concentrate Lot No.: [id number] Acid Concentrate Lot No.: [id number] Chlorine Testing - Before each treatment and [...] 120 mmHg 90 600 Yes Brigitte Molina PLASTIC BUBBLE PACKER at bedside, no voiced complaints. fluid removal [...] feed based on dietary recommendations) Provider Name: [facility] Provider Role: Hospitalist Method of Communication: Secure [...] Diagnosis Anemia Paroxysmal A-fib ([facility] [place]) ([facility] [place]) HTN (hypertension) ESRD on hemodialysis ([facility] [place]) ([facility] [place]) IgA nephropathy determined by biopsy of kidney Diverticulosis Nonrheumatic aortic valve stenosis Calcification of abdominal aorta ([facility] [place]) Missed vaccination due to patient refusal Tobacco abuse Alcohol use disorder in remission Atrial flutter, unspecified type ([facility] [place]) RSV (acute bronchiolitis due to respiratory syncytial virus) Aortic stenosis Upper GI bleed S/P AVR Acute hypoxic respiratory failure ([facility] [place]) Acute encephalopathy Pneumoperitoneum Gastric ulceration Severe malnutrition ([facility] [place]) ([facility] [place]) Pleural effusion Peritonitis due to fungus ([facility] [place]) History of abdominal surgery Leg DVT (deep venous thromboembolism), acute, left ([facility] [place]) Ischemic ulcer of toe of left foot, limited to breakdown of skin ([facility] [place]) Tracheostomy dependence ([facility] [place]) Leukocytosis Decubitus ulcer of sacral region, unstageable ([facility] [place]) Pneumonia of both lungs due to methicillin susceptible Staphylococcus aureus (MSSA) ([facility] [place]) Sacral osteomyelitis ([facility] [place]) ([facility] [place]) Acute respiratory failure with hypoxia ([facility] [place]) [J96.01] Tracheostomy care ([facility] [place]) [Z43.0] Pulmonary embolism ([facility] [place]) MCFP (current) use of antibiotics Complication of tracheostomy ([facility] [place]) ([facility] [place]) BRBPR (bright red blood per rectum) Hemoptysis [...] request. This RN spoke with RN at [facility] to verify medications that pt is taking. Pt arrived to hospital with wound vac on coccyx. Pt declined pictures to be taken of wound for charting. Pt states wound is being cared for by senior living facility. Pt also mentioned that his Left [...] consuelo marten transport documented in this encounter [facility] 02-26-2025 Telephone encount er Note Called spoke with a nurse at the home he lives at. She declined to schedule any appointments at this time because they don't know when patient will be discharged. She said to call back once he is out the hospital. There is no other number to contact patient directly [facility] 02-26-2025 Miscellaneous Notes Formattin g of [...] and hospital follow up with any ARMIN Antnoio, can we please schedule a 6-week CT scan for this patient and a follow-up appointment after this? Thank you documented in this encounter [facility] 02-23-2025 Telephone encount er Note Called LM to call back and schedule CT and hospital follow up with any ARMIN [facility] 02-23-2025 Miscellaneous Notes Formattin g of this note might be different from the original. Called LM to call back and schedule CT and hospital follow up with any ARMIN Antonio, can we please schedule a 6-week CT scan for this patient and a follow-up appointment after this? Thank you documented in this encounter [facility] 02-23-2025 Consult note Formatting of th [...] was bright red and it stopped just QUALITY ASSURANCE CALIBRATOR when in transport. Reason for Consult: PEG [...] constipation). 02/21/25 Historical Provider, epoetin rowan-epbx (Retacrit) 47696 UNIT/ML injection Inject 0.79 mL (7,900 Units) under the skin 1 (one) time per week. Patient not taking: Reported on 02/21/2025 12/04/24 02/21/25 DENIA Girard CNP pantoprazole (ProtoNix) 40 MG injection Infuse 40 mg into a venous catheter 2 times daily. 11/28/24 02/21/25 DENIA Girard CNP Allergies: Lisinopril Social History[3] Family History[4] REVIEW OF SYSTEMS: Review of Systems PHYSICAL EXAM: Vitals: 02/23/25926 BP: 131/80 Pulse: 94 Resp: 16 Temp: [...] bilateral pleural effusions. 5. Cholelithiasis, and diminutive ute mountain kidneys. Report Dictated on Electronically Signed By: [...] Jaskaran Bey MD General Surgery PGY-2 Pager [phone] [1] Past Medical History: Diagnosis Date Acute renal failure (ARF) ([facility] [place]) 10/19/2019 Anemia 12/30/2021 Calcification of abdominal aorta ([facility] [place]) 10/08/202309/[address] abd Diverticulosis 10/08/2023 ESRD on hemodialysis ([facility] [place]) ([facility] [place]) 10/26/2019 Hemodialysis patient ([facility] ([facility] [place]) HTN (hypertension) 12/01/2022 Hypertension IgA nephropathy IgA nephropathy determined by biopsy of kidney 10/26/2019 Missed vaccination due to patient refusal 10/08/2023 Has a number of non-scientific based beliefs which interfere with his understanding and acceptance of the medical benefit of vaccination. Nonrheumatic aortic valve stenosis 10/08/2023 Paroxysmal A-fib ([facility] [place]) ([facility] [place]) 08/18/2023 Tobacco abuse 10/08/2023 [2] Past Surgical History: Procedure Laterality Date APPENDECTOMY CARDIAC CATHETERIZATION N/A 10/09/2024 Performed by Bob Watson MD at [facility] Cardiac Cath/EP Lab CARDIAC CATHETERIZATION Bilateral 11/01/2024 Performed by Bob Watson MD at [facility] Cardiac Cath/EP Lab CARDIAC CATHETERIZATION N/A 11/01/2024 Performed by Bob Watson MD at [facility] Cardiac Cath/EP Lab COLONOSCOPY N/A 01/24/2025 Performed by Chadd Davis MD at [facility] ENDOSCOPY FISTULAGRAM (HISTORICAL) Left 09/15/2021 LEFT UPPER ARM HX AV FISTULA CREATION IR EMBOLIZATION 10/14/2024 IR EMBOLIZATION 10/14/2024 [facility] SPECIAL PROCEDURES IR FISTULAGRAM 08/07/2022 [...] 0 min Stress: Stress Concern Present (02/21/2025) [employer] - Occupational Stress Questionnaire Feeling of Stress : To some extent Social Connections: Unknown (02/21/2025) Social Connection and Isolation Panel [NHANES] Frequency of Communication with Friends and Family: More than three times a week Frequency of Social Gatherings with Friends and Family: Patient declined Attends Confucianist Services: Patient declined Active Member of Clubs [...] minutes (including chart/data review/analysis, care coordination, and [id number] encounter), and was spent discussing/counseling the patient/family [...] Acute Care Surgery Department of Surgery [facility] Pager: [phone] ~~~~~~~~~~~~~~~~~~~~~~~~~~~~~~~~ ~~~~~~~~~~~~~~~~~~~~~~~~~~~~~ This note may have been dictated using [employer] Practice Edition 2.6 and/or PresentationTube Voice Recognition Feature. The document was proofread; however, unrecognized voice recognition nanoelectronics engineer errors may be present. [1] Patient [...] AVR Acute hypoxic respiratory failure ([facility]) Acute encephalopathy Pneumoperitoneum Gastric ulceration Severe malnutrition (CMS/HCC) ([facility] [place]) Pleural effusion Peritonitis due to fungus ([facility] [place]) History of abdominal surgery Leg DVT (deep venous thromboembolism), acute, left ([facility] [place]) Ischemic ulcer of toe of left foot, limited to breakdown of skin ([facility] [place]) Tracheostomy dependence ([facility] [place]) Leukocytosis Decubitus ulcer of sacral region, unstageable ([facility] [place]) Pneumonia of both lungs due to methicillin susceptible Staphylococcus aureus (MSSA) ([facility] [place]) Sacral osteomyelitis (CMS/HCC) ([facility] [place]) Acute respiratory failure with hypoxia ([facility] [place]) [J96.01] Tracheostomy care ([facility] [place]) [Z43.0] Pulmonary embolism ([facility] [place]) MCFP (current) use of antibiotics Complication of tracheostomy ([facility] [place]) ([facility] [place]) BRBPR (bright red blood per rectum) Hemoptysis Associated Order(s): IP CONSULT TO INFECTIOUS DISEASES Images from the original note were not included. [facility] - Infectious Diseases Attending [...] bilateral pleural effusions. 5. Cholelithiasis, and diminutive ute mountain kidneys. Past Medical History: Medical History[1] Past [...] 0 min Stress: Stress Concern Present (02/21/2025) [employer] - Occupational Stress Questionnaire Feeling of Stress : To some extent Social Connections: Unknown (02/21/2025) Social Connection and Isolation Panel [NHANES] Frequency of Communication with Friends and Family: More than three times a week Frequency of Social Gatherings with Friends and Family: Patient declined Attends Confucianist Services: Patient declined Active Member of Clubs [...] CT abd Diverticulosis 10/08/2023 ESRD on hemodialysis ([facility]) ([facility] [place]) 10/26/2019 Hemodialysis patient ([facility]) ([facility] [place]) HTN (hypertension) 12/01/2022 Hypertension IgA nephropathy IgA nephropathy determined by biopsy of kidney 10/26/2019 Missed vaccination due to patient refusal 10/08/2023 Has a number of non-scientific based beliefs which interfere with his understanding and acceptance of the medical benefit of vaccination. Nonrheumatic aortic valve stenosis 10/08/2023 Paroxysmal A-fib ([facility]) ([facility]) 08/18/2023 Tobacco abuse 10/08/2023 [2] Past Surgical History: Procedure Laterality Date APPENDECTOMY CARDIAC CATHETERIZATION N/A 10/09/2024 Performed by Bob Watson MD at [facility] Cardiac Cath/EP Lab CARDIAC CATHETERIZATION Bilateral 11/01/2024 Performed by Bob Watson MD at [facility] Cardiac Cath/EP Lab CARDIAC CATHETERIZATION N/A 11/01/2024 Performed by Bob Watson MD at [facility] Cardiac Cath/EP Lab COLONOSCOPY N/A 01/24/2025 Performed by Chadd Davis MD at [facility] ENDOSCOPY FISTULAGRAM (HISTORICAL) Left 09/15/2021 LEFT UPPER ARM HX AV FISTULA CREATION IR EMBOLIZATION 10/14/2024 IR EMBOLIZATION 10/14/2024 [facility] SPECIAL PROCEDURES IR FISTULAGRAM 08/07/2022 IR FISTULAGRAM 08/07/2022 [facility] IR IMAGING TONSILLECTOMY (HISTORICAL) [3] Current Facility-Administered [...] 9:31 AM Jolie Uribe RPh (available on [email or web address]) Associated Order(s): INPATIENT CONSULT TO WOUND CARE PROVIDERS Images from the original note were not included. [facility] Wound Care/NPWT Progress Note Jun Snyder [...] pain with PO pain medication, per staff climate scientist, prior to wound VAC dressing change. Wet [...] to follow Recommend to follow up at [facility] Outpatient wound care center after hospital [...] Date Acute renal failure (ARF) ([facility]) 10/19/2019 Anemia 12/30/2021 Calcification of abdominal aorta ([facility] [place]) 10/08/202309/[address] abd Diverticulosis 10/08/2023 ESRD on hemodialysis (CMS/HCC) ([facility] [place]) 10/26/2019 Hemodialysis patient ([facility] ([facility] [place]) HTN (hypertension) 12/01/2022 Hypertension IgA nephropathy IgA nephropathy determined by biopsy of kidney 10/26/2019 Missed vaccination due to patient refusal 10/08/2023 Has a number of non-scientific based beliefs which interfere with his understanding and acceptance of the medical benefit of vaccination. Nonrheumatic aortic valve stenosis 10/08/2023 Paroxysmal A-fib ([facility]) ([facility]) 08/18/2023 Tobacco abuse 10/08/2023 [2] Past Surgical History: Procedure Laterality Date APPENDECTOMY CARDIAC CATHETERIZATION N/A 10/09/2024 Performed by Bob Watson MD at [facility] Cardiac Cath/EP Lab CARDIAC CATHETERIZATION Bilateral 11/01/2024 Performed by Bob Watson MD at [facility] Cardiac Cath/EP Lab CARDIAC CATHETERIZATION N/A 11/01/2024 Performed by Bob Watson MD at [facility] Cardiac Cath/EP Lab COLONOSCOPY N/A 01/24/2025 Performed by Chadd Davis MD at [facility] ENDOSCOPY FISTULAGRAM (HISTORICAL) Left 09/15/2021 LEFT UPPER ARM HX AV FISTULA CREATION IR EMBOLIZATION 10/14/2024 IR EMBOLIZATION 10/14/2024 [facility] SPECIAL PROCEDURES IR FISTULAGRAM 08/07/2022 [...] needed (PRN constipation). [DISCONTINUED] epoetin rowan-epbx (Retacrit) 46896 UNIT/ML injection Inject 0.79 mL (7,900 Units) [...] & deltoids) Fluid Accumulation: Unable to assess Retail Banker Strength: Not Performed Nutrition Assessment: 59yo male [...] to Regular this morning. At [facility] diet was Potassium Restricted/Mech Soft/Thin + Prostat [...] Total Energy Requirements (kcals/day): 30-35 kcal/kg = 4874-8593 kcal Weight Used for Protein Requirements: Current [...] lb) (08/28/24) % Weight Change (Calculated): -34.6 [place] Body Weight (lbs) (Calculated): 166 lbs [place] Body Weight (Kg) (Calculated): 75 kg % [place] Body Weight (Calculated): 81.1 % BMI (kg/m2) [...] soon to determine Jade Rodriguez RD Contact: [employer] or *[phone] Associated Order(s): INPATIENT CONSULT TO WOUND CARE PROVIDERS Images from the original note were not included. [facility] Wound Care CONSULT Note Jun Adrianna Lillian AGE: 59 y.o. GENDER: male : [...] offloading with patient and he refused envella bed, RN at bedside at time of discussion, [...] wrist Abrasion: -cleanse with antibacterial soap/water, leave [place] [place] daily Sacral Stage 4 pressure injury (POA): [...] to follow Recommend to follow up at [facility] Outpatient wound care center after hospital [...] Date Acute renal failure (ARF) ([facility]) 10/19/2019 Anemia 12/30/2021 Calcification of abdominal aorta ([facility]) 10/08/202309/[address] abd Diverticulosis 10/08/2023 ESRD on hemodialysis ([facility]) ([facility]) 10/26/2019 Hemodialysis patient ([facility] ([facility]) HTN (hypertension) 12/01/2022 Hypertension IgA nephropathy IgA nephropathy determined by biopsy of kidney 10/26/2019 Missed vaccination due to patient refusal 10/08/2023 Has a number of non-scientific based beliefs which interfere with his understanding and acceptance of the medical benefit of vaccination. Nonrheumatic aortic valve stenosis 10/08/2023 Paroxysmal A-fib ([facility]) ([facility]) 08/18/2023 Tobacco abuse 10/08/2023 [2] Past Surgical History: Procedure Laterality Date APPENDECTOMY CARDIAC CATHETERIZATION N/A 10/09/2024 Performed by Bob Watson MD at [facility] Cardiac Cath/EP Lab CARDIAC CATHETERIZATION Bilateral 11/01/2024 Performed by Bob Watson MD at [facility] Cardiac Cath/EP Lab CARDIAC CATHETERIZATION N/A 11/01/2024 Performed by Bob Watson MD at [facility] Cardiac Cath/EP Lab COLONOSCOPY N/A 01/24/2025 Performed by Chadd Davis MD at [facility] ENDOSCOPY FISTULAGRAM (HISTORICAL) Left 09/15/2021 LEFT UPPER ARM HX AV FISTULA CREATION IR EMBOLIZATION 10/14/2024 IR EMBOLIZATION 10/14/2024 [facility] SPECIAL PROCEDURES IR FISTULAGRAM 08/07/2022 [...] needed (PRN constipation). [DISCONTINUED] epoetin rowan-epbx (Retacrit) 32439 UNIT/ML injection Inject 0.79 mL (7,900 Units) under the skin 1 (one) time per week. (Patient not taking: Reported on 02/21/2025) [DISCONTINUED] pantoprazole (ProtoNix) 40 MG injection Infuse 40 mg into a venous catheter 2 times daily. Cosigned by Ahsan Gill DO at 02/26/2025 4:59 PM EDT Associated Order(s): IP CONSULT TO PULMONOLOGY Images from the original note were not included. [facility] [phone] PULMONARY CONSULTATION NOTE. Patient - Jun nSyder, Age - 59 y.o. - 1965 Room Number - W3-334/W3-334 A Consulting - Ramón Romano MD Primary Care Physician - [facility]roncos[facility] # - [id number] Date of Admission - 02/20/2025 5:41 PM [...] Dose Status acetaminophen (Tylenol) 325 MG tablet [id number] No Take 650 mg by mouth every 6 hours as needed for mild pain (1-3) or fever. Patient not taking: Reported on 02/21/2025 Historical Provider, Unknown Active Ampicillin-Sulbactam Sodium (UNASYN IV) [id number] Infuse 3 g into a venous catheter Every 24 hours. Historical Provider, 02/14/25 2359 B complex-vitamin C-folic acid (Nephro-Nato Rx) 1 MG tablet [id number] Take 1 tablet by mouth daily. Historical ProviderMD Active bisacodyl (Dulcolax) 5 MG EC tablet [id number] Take 5 mg by mouth Daily as needed for constipation. Do not crush, chew, or split. Historical ProviderMD Active bisacodyl (Dulcolax) 5 mg split suppository [id number] Insert 10 mg into the rectum Daily as needed (PRN constipation). Historical Provider, Active epoetin rowan-epbx (Retacrit) 43242 UNIT/ML injection [id number] No Inject 0.79 mL (7,900 Units) under the skin 1 (one) time per week. Patient not taking: Reported on 02/21/2025 DENIA Girard CNP Unknown Active ipratropium-albuterol (Duo-Neb) 0.5-2.5 mg/3 mL nebulizer solution [id number] Yes Take 3 mL by nebulization every 8 hours. DENIA Girard CNP Past Week Active Lidocaine 4 % patch [id number] Apply 1 patch topically daily. DENIA Girard CNP Active magnesium hydroxide (Milk of Magnesia) 800 MG/5ML suspension [id number] Take 30 mL by mouth Daily as needed for constipation (if no bm in 3 days). Historical ProviderMD Active melatonin 5 MG tablet [id number] 1 tablet (5 mg) by Per G Tube route Nightly as needed (insomnia). DENIA Girard CNP Active metoprolol tartrate (Lopressor) 25 MG tablet [id number] 1 tablet (25 mg) by Per G Tube route 2 times daily. DENIA Girard CNP Active midodrine (Proamatine) 5 MG tablet [id number] 3 tablets (15 mg) by Per G Tube route every 6 hours. DENIA Girard CNP 02/14/252358 naloxone in sodium chloride (PF) injection injection [id number] Inject 0.04 mg into the shoulder, thigh, or buttocks as needed for opioid reversal or respiratory depression. Historical Provider, Active oxyCODONE (Roxicodone) 5 MG immediate release tablet [id number] Take 1 tablet (5 mg) by mouth every 6 hours as needed for moderate pain (4-6) for up to 5 days. Barb Dawikns MD 02/14/252358 pantoprazole (ProtoNix) 40 MG injection [id number] Infuse 40 mg into a venous catheter 2 times daily. DENIA Girard CNP Active QUEtiapine (SEROquel) 25 MG tablet [id number] 1 tablet (25 mg) by Per G Tube route Nightly. DENIA Girard CNP 02/14/252358 sevelamer (Renagel) 800 MG tablet [id number] Take 800 mg by mouth 3 times daily (with meals). Swallow tablet whole; do not crush, break, or chew. Give with meals for CKD/dialysis Historical Provider, Active warfarin (Coumadin) 1 MG tablet [id number] Yes Take as directed per After Visit [...] 10/09/2024 Performed by Bob Watson MD at [facility] Cardiac Cath/EP Lab CARDIAC CATHETERIZATION Bilateral 11/01/2024 Performed by Bob Watson MD at [facility] Cardiac Cath/EP Lab CARDIAC CATHETERIZATION N/A 11/01/2024 Performed by Bbo Watson MD at [facility] Cardiac Cath/EP Lab COLONOSCOPY N/A 01/24/2025 Performed by Chadd Davis MD at [facility] ENDOSCOPY FISTULAGRAM (HISTORICAL) Left 09/15/2021 LEFT UPPER ARM HX AV FISTULA CREATION IR EMBOLIZATION 10/14/2024 IR EMBOLIZATION 10/14/2024 [facility] SPECIAL PROCEDURES IR FISTULAGRAM 08/07/2022 [...] PM EDT I have personally performed a [id number] diagnostic evaluation on this patient on date of service 02/21/2025. History, labs, imaging studies, and electronic medical record have been reviewed by me. This note documented by the [x]supervisor housecleaner []ARMIN reflects my history, exam, and medical [...] RA Associated Order(s): IP CONSULT TO NEPHROLOGY [facility] [address] [place] [address] Consult Note Patient's Name: Jun Snyder 10:29 [...] pulses, no calf tenderness. Labs: Recent Labs 02/20/25182402/21/25 0053 WBC 9.4 7.0 HGB 8.7* 8.3* [...] bilateral pleural effusions. 5. Cholelithiasis, and diminutive ute mountain kidneys. Assessment and Plan: 59 y.o. male [...] or concerns Bree Molina APRN, CNP A-G PLASTIC BUBBLE PACKER [facility] [phone] Pt seen and examined independently by me. I reviewed with DENIA-SAMIA the medical history and the findings on physical examination. I discussed the patient s diagnosis and concur with the treatment plan as documented in his note. Please call [phone] or message me through [employer] with any questions or concerns. [1] Past Medical History: Diagnosis Date Acute renal failure (ARF) ([facility]) 10/19/2019 Anemia 12/30/2021 Calcification of abdominal aorta ([facility]) 10/08/202309/[address] abd Diverticulosis 10/08/2023 ESRD on hemodialysis ([facility]) ([facility]) 10/26/2019 Hemodialysis patient ([facility] ([facility]) HTN (hypertension) 12/01/2022 Hypertension IgA nephropathy IgA nephropathy determined by biopsy of kidney 10/26/2019 Missed vaccination due to patient refusal 10/08/2023 Has a number of non-scientific based beliefs which interfere with his understanding and acceptance of the medical benefit of vaccination. Nonrheumatic aortic valve stenosis 10/08/2023 Paroxysmal A-fib ([facility]) ([facility]) 08/18/2023 Tobacco abuse 10/08/2023 [2] Past Surgical History: Procedure Laterality Date APPENDECTOMY CARDIAC CATHETERIZATION N/A 10/09/2024 Performed by Bob Watson MD at [facility] Cardiac Cath/EP Lab CARDIAC CATHETERIZATION Bilateral 11/01/2024 Performed by Bob Watson MD at [facility] Cardiac Cath/EP Lab CARDIAC CATHETERIZATION N/A 11/01/2024 Performed by Bob Watson MD at [facility] Cardiac Cath/EP Lab COLONOSCOPY N/A 01/24/2025 Performed by Chadd Davis MD at [facility] ENDOSCOPY FISTULAGRAM (HISTORICAL) Left 09/15/2021 LEFT UPPER ARM HX AV FISTULA CREATION IR EMBOLIZATION 10/14/2024 IR EMBOLIZATION 10/14/2024 [facility] SPECIAL PROCEDURES IR FISTULAGRAM 08/07/2022 IR FISTULAGRAM 08/07/2022 [facility] IR IMAGING TONSILLECTOMY (HISTORICAL) [3] Family History Problem Relation Name Age of Onset No Known Problems Mother No Known Problems Father documented in this encounter [facility] 02-23-2025 Telephone encount er Note Antonio, can we please schedule a 6-week CT scan for this patient and a follow-up appointment after this? Thank you [facility] 02-22-2025 Hospital Discharg elder Hurtado DO [...] 10/09/2024 Performed by Bob Watson MD at [facility] Cardiac Cath/EP Lab CARDIAC CATHETERIZATION Bilateral 11/01/2024 Performed by Bob Watson MD at [facility] Cardiac Cath/EP Lab CARDIAC CATHETERIZATION N/A 11/01/2024 Performed by Bob Watson MD at [facility] Cardiac Cath/EP Lab COLONOSCOPY N/A 01/24/2025 Performed by Chadd Davis MD at [facility] ENDOSCOPY FISTULAGRAM (HISTORICAL) Left 09/15/2021 LEFT UPPER ARM HX AV FISTULA CREATION IR EMBOLIZATION 10/14/2024 IR EMBOLIZATION 10/14/2024 [facility] SPECIAL PROCEDURES IR FISTULAGRAM 08/07/2022 [...] stenosis Calcification of abdominal aorta ([facility]) Overview Signed 10/08/2023 4:44 PM by Jr [...] hypoxia (HCC) [J96.01] Tracheostomy care ([facility]) [Z43.0] Pulmonary embolism ([facility]) MCFP (current) use of antibiotics Complication of tracheostomy ([facility]) ([facility]) Anemia Aortic stenosis Upper GI bleed S/P AVR Acute hypoxic respiratory failure ([facility]) Acute encephalopathy Pneumoperitoneum BRBPR (bright red blood [...] Minimal assistance Toileting Minimal assistance Feeding Independent Mail Carrier And Clerk Minimal assistance Med Delivery yes Wound [...] Date: 02/20/25 Discharging to Facility/ Agency Name: [facility] Address: [address] [place] [id number] Dialysis Facility (if applicable) Name: Address: Dialysis Schedule: Phone: Fax: Medical Record Coder/Plaster Model And Mold Maker signature: ICIAN SECTION Name: Jun Snyder [...] a nursing facility directly from an [facility] or a unit of a [facility] that is not operated by or licensed by [facility] under section 5119.14 or 5160-3-15.1 5 The individual requires the level of services provided by a nursing facility for the condition for which he or she was treated in the hospital and, Physician Certification: I certify the above information and transfer of Jun Snyder is necessary for the continuing treatment of the diagnosis listed and that he requires senior living facility for less than 30 days. Update [...] - 1 mg documented in this encounter [facility] 02-21-2025 Telephone encount er Note Name of caller: Padmini Contact phone number: [phone] Relationship to Patient: [facility] Provider: Mariano Practice: Infectious Disease Chief Complaint/Reason for Call: [facility] need a routine consult for this patient for Hemoptysis Cavitary lung lesion. Please advise Padmini Best time of day caller can be reached: any Patient advised that office/PCP has 24-48 business hours to return their call: Yes [facility] 02-21-2025 Miscellaneous Notes Formattin g of this note might be different from the original. Name of caller: Padmini Contact phone number: [phone] Relationship to Patient: [facility] Provider: Mariano Practice: Infectious Disease Chief Complaint/Reason for Call: [facility] need a routine consult for this patient for Hemoptysis Cavitary lung lesion. Please advise Padmini Best time of day caller can be reached: any Patient advised that office/PCP has 24-48 business hours to return their call: Yes documented in this encounter [facility] 02-21-2025 Note Referral placed to [facility] per [facility] request. Await review and response regarding ability to accept. TCC notified. Electronically signed by NELSON Rodrigues [facility] 02-20-2025 History and physical note Attending History [...] bilateral pleural effusions. 5. Cholelithiasis, and diminutive ute mountain kidneys. Past Medical History: Past Medical History: Diagnosis Date Acute renal failure (ARF) ([facility]) 10/19/2019 Anemia 12/30/2021 Calcification of abdominal aorta ([facility]) 10/08/202309/[address] abd Diverticulosis 10/08/2023 ESRD on hemodialysis ([facility]) ([facility]) 10/26/2019 Hemodialysis patient ([facility]) ([facility]) HTN (hypertension) 12/01/2022 Hypertension IgA nephropathy IgA [...] Patient Unable To Answer (12/01/2024) Received from [facility] Overall Financial Resource Strain (CARDIA) Difficulty of Paying Living Expenses: Patient unable to answer Food Insecurity: Patient Unable To Answer (12/01/2024) Received from [facility] Hunger Vital Sign Worried About Running Out of Food in the Last Year: Patient unable to answer Ran Out of Food in the Last Year: Patient unable to answer Transportation Needs: No Transportation Needs (01/18/2025) Received from [facility] Transportation Source Has lack of transportation kept you from medical appointments or from getting medications?: No Has lack of transportation kept you from meetings, work, or from getting things needed for daily living?: No Physical Activity: Not on file Stress: No Stress Concern Present (01/18/2025) Received from [facility] - Occupational Stress Questionnaire Feeling of Stress : Not at all Social Connections: Patient Unable To Answer (12/01/2024) Received from [facility] Social Connection and Isolation Panel [NHANES] Frequency of Communication with Friends and Family: Patient unable to answer Frequency of Social Gatherings with Friends and Family: Patient unable to answer Attends Confucianist Services: Patient unable to answer Active Member of Clubs or Organizations: Patient unable to answer Attends Club or Organization Meetings: Patient unable to answer Marital Status: Patient unable to answer Intimate Partner Violence: Patient Unable To Answer (11/28/2024) Received from [facility] Medical Domestic Abuse Assessment Do you feel safe in your relationships at home?: Unable to assess Physical Abuse: Unable to assess [facility] Domestic Abuse - Type of Abuse: Not on file [facility] Domestic Abuse - Time Frame: Not on file [facility] Domestic Abuse - Signs and Symptoms: Not on file Verbal Abuse: Unable to assess [facility] Domestic Abuse - Reported To: Not [...] exists for component: LABALBU PT/INR: Recent Labs 02/20/255 PROTIME 14.7* INR 1.4* CARDIAC ENZYMES: No [...] MD Division of Hospital Medicine Inpatient Medical Services/[facility] [1] Past Surgical History: Procedure Laterality Date APPENDECTOMY CARDIAC CATHETERIZATION N/A 10/09/2024 Performed by Bob Watson MD at [facility] Cardiac Cath/EP Lab CARDIAC CATHETERIZATION Bilateral 11/01/2024 Performed by Bob Watson MD at [facility] Cardiac Cath/EP Lab CARDIAC CATHETERIZATION N/A 11/01/2024 Performed by Bob Watson MD at [facility] Cardiac Cath/EP Lab COLONOSCOPY N/A 01/24/2025 Performed by Chadd Davis MD at [facility] ENDOSCOPY FISTULAGRAM (HISTORICAL) Left 09/15/2021 LEFT UPPER ARM HX AV FISTULA CREATION IR EMBOLIZATION 10/14/2024 IR EMBOLIZATION 10/14/2024 [facility] SPECIAL PROCEDURES IR FISTULAGRAM 08/07/2022 IR FISTULAGRAM 08/07/2022 [facility] IR IMAGING TONSILLECTOMY (HISTORICAL) [2] Family History Problem Relation Name Age of Onset No Known Problems Mother No Known Problems Father [3] Allergies Allergen Reactions Lisinopril Swelling and Angioedema documented in this encounter [facility] 02-20-2025 Note [facility] 02-20-2025 Emergency department Note Called report to [...] Wound is being cared for by senior living facility where he resides EMERGENCY DEPARTMENT ENCOUNTER [...] was bright red and it stopped just QUALITY ASSURANCE CALIBRATOR when in transport. HISTORY OF PRESENT ILLNESS [...] CURRENT MEDICATIONS Previous Medications EPOETIN ROWAN-EPBX (RETACRIT) 11552 UNIT/ML INJECTION Inject 0.79 mL (7,900 Units) [...] Physician EKG interpretation can be found in [facility] RADIOLOGY (Per Emergency Physician): Interpretation per [...] bilateral pleural effusions. 5. Cholelithiasis, and diminutive ute mountain kidneys. Report Dictated on Electronically Signed By: [...] of hemoptysis, he will be admitted at [facility] under the hospitalist service in [...] Date Acute renal failure (ARF) ([facility]) 10/19/2019 Anemia 12/30/2021 Calcification of abdominal aorta ([facility]) 10/08/202309/[address] abd Diverticulosis 10/08/2023 ESRD on hemodialysis ([facility]) ([facility]) 10/26/2019 Hemodialysis patient ([facility]) ([facility]) HTN (hypertension) 12/01/2022 Hypertension IgA nephropathy IgA nephropathy determined by biopsy of kidney 10/26/2019 Missed vaccination due to patient refusal 10/08/2023 Has a number of non-scientific based beliefs which interfere with his understanding and acceptance of the medical benefit of vaccination. Nonrheumatic aortic valve stenosis 10/08/2023 Paroxysmal A-fib ([facility]) ([facility]) 08/18/2023 Tobacco abuse 10/08/2023 [2] Past Surgical History: Procedure Laterality Date APPENDECTOMY CARDIAC CATHETERIZATION N/A 10/09/2024 Performed by Bob Watson MD at [facility] Cardiac Cath/EP Lab CARDIAC CATHETERIZATION Bilateral 11/01/2024 Performed by Bob Watson MD at [facility] Cardiac Cath/EP Lab CARDIAC CATHETERIZATION N/A 11/01/2024 Performed by Bob Watson MD at [facility] Cardiac Cath/EP Lab COLONOSCOPY N/A 01/24/2025 Performed by Chadd Davis MD at [facility] ENDOSCOPY FISTULAGRAM (HISTORICAL) Left 09/15/2021 LEFT UPPER ARM HX AV FISTULA CREATION IR EMBOLIZATION 10/14/2024 IR EMBOLIZATION 10/14/2024 [facility] SPECIAL PROCEDURES IR FISTULAGRAM 08/07/2022 [...] Patient Unable To Answer (12/01/2024) Received from [facility] Overall Financial Resource Strain (CARDIA) Difficulty of Paying Living Expenses: Patient unable to answer Food Insecurity: Patient Unable To Answer (12/01/2024) Received from [facility] Hunger Vital Sign Worried About Running Out of Food in the Last Year: Patient unable to answer Ran Out of Food in the Last Year: Patient unable to answer Transportation Needs: No Transportation Needs (01/18/2025) Received from [facility] Transportation Source Has lack of transportation kept you from medical appointments or from getting medications?: No Has lack of transportation kept you from meetings, work, or from getting things needed for daily living?: No Stress: No Stress Concern Present (01/18/2025) Received from [facility] - Occupational Stress Questionnaire Feeling of Stress : Not at all Social Connections: Patient Unable To Answer (12/01/2024) Received from [facility] Medical Social Connection and Isolation Panel [NHANES] Frequency of Communication with Friends and Family: Patient unable to answer Frequency of Social Gatherings with Friends and Family: Patient unable to answer Attends Confucianist Services: Patient unable to answer Active Member [...] was bright red and it stopped just QUALITY ASSURANCE CALIBRATOR when in transport. documented in this encounter [facility] 02-14-2025 History of Presen t illness Narrative Images from the original note were not included. [facility] Infectious Diseases Advanced Practice Provider Outpatient Progress Note HISTORYOF PRESENT ILLNESS 59 yo male with PMHx significant for ESRD on HD via AVF, HTN, PAD who was admitted at [facility] (10/03/24-11/28/24) where he underwent AVR [...] Pip-Tazo and Anidulafungin. Patient was discharged to [facility] on 11/28/24 where he was followed by our ID group for recurrent MSSA LRTI. He additionally had a sacral wound that was debrided to bone 01/02/25 (Sacral wound Cx + E faecalis, Clostridium clostridioforme). He was on a course of Amp-Sulbactam planned for 6 weeks through 02/13/25 and discharged to [facility] 01/18/25. Patient then presented to [facility] 01/19 after inadvertently self-dislodging tracheostomy. He was transferred to [facility] ICU for airway management and to determine if replacement tracheostomy was needed; decision was made to leave tracheostomy out. He was transferred to [facility] same day. 01/20 GI and critical care were consulted dt rectal bleeding. He was transferred back to ICU and had an EGD that showed non-bleeding duodenal ulcer. At that time sacral wound was also noted to be bleeding. Wound vac was applied. He continued on course of Amp-Sulbactam as planned through 02/13/25 and had tunneled line placed. Patient was discharged to [facility] 02/01/25. Patient presents today for [...] Patient Unable To Answer (12/01/2024) Received from [facility] Overall Financial Resource Strain (CARDIA) Difficulty of Paying Living Expenses: Patient unable to answer Food Insecurity: Patient Unable To Answer (12/01/2024) Received from [facility] Hunger Vital Sign Worried About Running Out of Food in the Last Year: Patient unable to answer Ran Out of Food in the Last Year: Patient unable to answer Transportation Needs: No Transportation Needs (01/18/2025) Received from [facility] Transportation Source Has lack of transportation kept you from medical appointments or from getting medications?: No Has lack of transportation kept you from meetings, work, or from getting things needed for daily living?: No Physical Activity: Not on file Stress: No Stress Concern Present (01/18/2025) Received from [facility]ational Health - Occupational Stress Questionnaire Feeling of Stress : Not at all Social Connections: Patient Unable To Answer (12/01/2024) Received from [facility] Medical Social Connection and Isolation Panel [NHANES] Frequency of Communication with Friends and Family: Patient unable to answer Frequency of Social Gatherings with Friends and Family: Patient unable to answer Attends Confucianist Services: Patient unable to answer Active Member of Clubs or Organizations: Patient unable to answer Attends Club or Organization Meetings: Patient unable to answer Marital Status: Patient unable to answer Intimate Partner Violence: Patient Unable To Answer (11/28/2024) Received from [facility] Domestic Abuse Assessment Do you feel safe in your relationships at home?: Unable to assess Physical Abuse: Unable to assess [facility] Domestic Abuse - Type of Abuse: Not on file [facility] Domestic Abuse - Time Frame: Not on file [facility] Domestic Abuse - Signs and Symptoms: Not on file Verbal Abuse: Unable to assess [facility] Domestic Abuse - Reported To: Not on file Housing Stability: Patient Unable To Answer (12/01/2024) Received from [facility] Medical Housing Stability Vital Sign Unable to [...] neg 01/22 Acinetobacter baumannii PCR: neg Previous ([facility]) 01/02- sacral wound cx- E faecalis (Amp-S), skin ila, Clostridium clostrioforme 01/01- blood cx- 2/2 NG 12/30- blood cx- 2/2 NGTD 12/30- sputum cx- MSSA, resp ila 12/25- blood cx- 2/2 negative 12/14- sputum cx- MSSA, resp ila 12/14- MRSA pcr- MSSA 12/11- sputum cx- MSSA, resp ila Previous ([facility]) 11/28- L pleural fluid- negative [...] PCR- coronavirus, RSV 10/16- BAL cx- resp ial 10/11- GI PCR- negative 10/03- blood cx- [...] accounting for open encounter. Mikala MORAN, [facility] [1] Past Medical History: Diagnosis Date Acute renal failure (ARF) ([facility]) 10/19/2019 Anemia 12/30/2021 Calcification of abdominal aorta ([facility]) 10/08/202309/[address] abd Diverticulosis 10/08/2023 ESRD on hemodialysis ([facility] ([facility]) 10/26/2019 Hemodialysis patient ([facility] ([facility]) HTN (hypertension) 12/01/2022 Hypertension IgA nephropathy IgA nephropathy determined by biopsy of kidney 10/26/2019 Missed vaccination due to patient refusal 10/08/2023 Has a number of non-scientific based beliefs which interfere with his understanding and acceptance of the medical benefit of vaccination. Nonrheumatic aortic valve stenosis 10/08/2023 Paroxysmal A-fib ([facility]) ([facility]) 08/18/2023 Tobacco abuse 10/08/2023 [2] Family History Problem Relation Name Age of Onset No Known Problems Mother No Known Problems Father documented in this encounter [facility] 02-02-2025 History of Presen t illness Narrative Images from the original note were not included. Pt discharged to [facility] on 02/01/25. Updated tracker with hospital doses. Warfarin dosing instructions: 0.5 mg per day. New interacting meds: N/a Next SAILAJA appt: post [facility] documented in this encounter [facility] 02-02-2025 History of Presen t illness Narrative Images from the original note were not included. Pt discharged to [facility] on 02/01/25. Updated tracker with hospital doses. Warfarin dosing instructions: 0.5 mg per day. New interacting meds: N/a Next SAILAJA appt: post SNF Patient is still at [facility] ([phone]). I left a message for ELIA Anderson, regarding discharge plans. documented in this encounter [facility] 02-02-2025 History of Presen t illness Narrative Images from the original note were not included. Pt discharged to [facility] on 02/01/25. Updated tracker with hospital doses. Warfarin dosing instructions: 0.5 mg per day. New interacting meds: N/a Next SAILAJA appt: post SNF Patient is still at [facility] ([phone]). I left a message for ELIA Anderson, [...] readmitted on 02/20 and discharged back to [facility] on 03/05. documented in this encounter [facility] 02-01-2025 Nurse Note Transport here to take patient to [facility]. Wound Vac tubing clamped and disconnected from wound vac. Facility will determine if tubing is compatible with their wound vacs. Wound Vac Dressing leaking with foam falling out. Dressing removed and W-D drsg applied. Patient Name: Jun Snyder Patient : 1965 Acct: [id number] Date of Admission: 01/19/2025 Room/Bed: [facility] A Code Status: Full Code Allergies: Allergies Allergen Reactions Lisinopril Swelling and Angioedema Diagnosis: Patient Active Problem List Diagnosis Anemia Paroxysmal A-fib ([facility]) (HCC) HTN (hypertension) ESRD on hemodialysis ([facility]) ([facility]) IgA nephropathy determined by biopsy of kidney Diverticulosis Nonrheumatic aortic valve stenosis Calcification of abdominal aorta ([facility]) Missed vaccination due to patient refusal Tobacco abuse Alcohol use disorder in remission Atrial flutter, unspecified type ([facility]) RSV (acute bronchiolitis due to respiratory syncytial virus) Aortic stenosis Upper GI bleed S/P AVR Acute hypoxic respiratory failure ([facility]) Acute encephalopathy Pneumoperitoneum Gastric ulceration Severe malnutrition ([facility]) ([facility]) Pleural effusion Peritonitis due to fungus ([facility]) History of abdominal surgery Leg DVT (deep venous thromboembolism), acute, left ([facility]) Ischemic ulcer of toe of left foot, limited to breakdown of skin ([facility]) Tracheostomy dependence ([facility]) Leukocytosis Decubitus ulcer of sacral region, unstageable ([facility]) Pneumonia of both lungs due to methicillin susceptible Staphylococcus aureus (MSSA) ([facility]) Sacral osteomyelitis ([facility]) ([facility]) Acute respiratory failure with hypoxia ([facility]) [J96.01] Tracheostomy care ([facility]) [Z43.0] Pulmonary embolism ([facility]) MCFP (current) use of antibiotics Complication of tracheostomy ([facility]) ([facility]) BRBPR (bright red blood per rectum) Treatment: [...] 01/31/25 0400 -- -- -- -- Diminished Ecchymosis;[place];Mark Warm;Dry Flat;Gastrostomy tube Active 01/31/25 0801 Alert [...] - Before each treatment: Dialysis Machine No.: [id number] RO Machine Number: [id number] Dialyzer Lot No.: [id number] Tubing Lot Number: [id number] All Connections Secure: Yes Venous Parameters Set: Yes Arterial Parameters Set: Yes NS Bag: Yes Saline Line Double Clamped: Yes Dialyzer: Nipro Prime Volume (mL): 200 mL RO Machine Number: [id number] RO Machine Log Sheet Completed: Yes Machine Alarm Self Test: Completed, Passed (722) (01/31/25 0743) Air Foam Detector: Tested, Proper Function, pH Reading Extracorporeal Circuit Tested for Integrity: Yes Machine Conductivity: 13.7 Manual Conductivity: 13.7 Manual Ph: 7 Bleach Test (Neg): Yes Bath Temperature: 36 C (96.8 F) Conductivity Meter Serial #: [id number] Machine Functioning Alarm Free? Yes Dialysis Bath: K+ (Potassium): 2 Ca+ (Calcium): 2.5 Na+ (Sodium): 137 HCO3 (Bicarb): 35 Bicarbonate Concentrate Lot No.: [id number] Acid Concentrate Lot No.: [id number] Chlorine Testing - Before each treatment and [...] Communication: Secure chat Response: Other (Comment) ([employer]) Notification Date: 01/30/25 Notification Time: 2037 Reason for Communication: Medication concern Provider Role: Attending physician Method of Communication: Secure chat Response: Other (Comment) ([employer]) Notification Time: 2037 Handoff complete and report [...] Verbalized Understanding Patient arrived from [facility], Dr. Borrero in to speak with the [...] Name: Jun Snyder Patient : 1965 Acct: [id number] Date of Admission: 01/19/2025 Room[facility]Bed: [facility] A Code Status: Full Code Allergies: Allergies Allergen Reactions Lisinopril Swelling and Angioedema Diagnosis: Patient Active Problem List Diagnosis Anemia Paroxysmal A-fib ([facility]/HCC) (HCC) HTN (hypertension) ESRD on hemodialysis ([facility]) ([facility]) IgA nephropathy determined by biopsy of kidney [...] hypoxia (HCC) [J96.01] Tracheostomy care ([facility]) [Z43.0] Pulmonary embolism (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 Complication of tracheostomy [...] 01/29/25 0800 -- -- -- -- Clear [place];Mark Warm;Dry Flat;Soft;Gastrostomy tube Active 01/29/25 0839 Alert (0) 3 Regular None (Room air) Clear [place] Warm;Dry;No swelling Soft Active 01/29/25 1210 Alert (0) 3 Regular None (Room air) Clear [place] -- -- -- Labs Lab Results Component [...] - Before each treatment: Dialysis Machine No.: [id number] RO Machine Number: [id number] Dialyzer Lot No.: [id number] Tubing Lot Number: [id number] All Connections Secure: Yes Venous Parameters Set: Yes Arterial Parameters Set: Yes NS Bag: Yes Saline Line Double Clamped: Yes Dialyzer: Nipro Prime Volume (mL): 200 mL RO Machine Number: [id number] RO Machine Log Sheet Completed: Yes Machine Alarm Self Test: Completed, Passed (01/29/25729) Air Foam Detector: Tested, Proper Function, pH Reading Extracorporeal Circuit Tested for Integrity: Yes Machine Conductivity: 13.8 Manual Conductivity: 13.8 Manual Ph: 7 Bleach Test (Neg): Yes Bath Temperature: 36 C (96.8 F) Conductivity Meter Serial #: [id number] Machine Functioning Alarm Free? Yes Dialysis Bath: K+ (Potassium): 3 Ca+ (Calcium): 2.5 Na+ (Sodium): 137 HCO3 (Bicarb): 35 Bicarbonate Concentrate Lot No.: [id number] Acid Concentrate Lot No.: [id number] Chlorine Testing - Before each treatment and [...] 210 mmHg 100 600 Yes Pt stable [id number]. Pt stable , sleeping 01/29/25 1018 400 [...] Name: Jun Snyder Patient : 1965 Acct: [id number] Date of Admission: 01/19/2025 Room/Bed: T3-321/T3321 A Code Status: Full Code Allergies: Allergies Allergen Reactions Lisinopril Swelling and Angioedema Diagnosis: Patient Active Problem List Diagnosis Anemia Paroxysmal A-fib ([facility]) ([facility]) HTN (hypertension) ESRD on hemodialysis ([facility]) ([facility]) IgA nephropathy determined by biopsy of kidney Diverticulosis Nonrheumatic aortic valve stenosis Calcification of abdominal aorta ([facility]) Missed vaccination due to patient refusal Tobacco abuse Alcohol use disorder in remission Atrial flutter, unspecified type ([facility]) RSV (acute bronchiolitis due to respiratory syncytial virus) Aortic stenosis Upper GI bleed S/P AVR Acute hypoxic respiratory failure ([facility]) Acute encephalopathy Pneumoperitoneum Gastric ulceration Severe malnutrition ([facility]) ([facility]) Pleural effusion Peritonitis due to fungus ([facility]) History of abdominal surgery Leg DVT (deep venous thromboembolism), acute, left (HCC) Ischemic ulcer of toe of left foot, 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) Tracheostomy dependence (HCC) Leukocytosis Decubitus ulcer of sacral region, unstageable (HCC) Pneumonia of both lungs due to methicillin susceptible Staphylococcus aureus (MSSA) (HCC) Sacral osteomyelitis (CMS/HCC) (HCC) Acute respiratory failure with hypoxia ([facility]) [J96.01] Tracheostomy care ([facility]) [Z43.0] Pulmonary embolism (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 Complication of tracheostomy (CMS/HCC) ([facility]) BRBPR (bright red blood per rectum) Treatment: [...] - Before each treatment: Dialysis Machine No.: [id number] Machine Number: [id number] Dialyzer Lot No.: [id number] Tubing Lot Number: [id number] All Connections Secure: Yes Venous Parameters Set: Yes Arterial Parameters Set: Yes NS Bag: Yes Saline Line Double Clamped: Yes Dialyzer: Nipro Prime Volume (mL): 200 mL RO Machine Number: [id number] RO Machine Log Sheet Completed: Yes Machine Alarm Self Test: Completed, Passed (1226) (01/26/25 1226) Air Foam Detector: Tested, Proper Function, pH Reading Extracorporeal Circuit Tested for Integrity: Yes Machine Conductivity: 13.9 Manual Conductivity: 14 Manual Ph: 7.4 Bleach Test (Neg): Yes Bath Temperature: 36 C (96.8 F) Conductivity Meter Serial #: [id number] Machine Functioning Alarm Free? Yes Dialysis Bath: K+ (Potassium): 2 Ca+ (Calcium): 2.5 Na+ (Sodium): 137 HCO3 (Bicarb): 35 Bicarbonate Concentrate Lot No.: [id number] Acid Concentrate Lot No.: [id number] Chlorine Testing - Before each treatment and [...] -- -- -- -- tx completed, UF [id number] Vital Signs Patient Vitals for the past [...] Name: Jun Snyder Patient : 1965 Acct: [id number] Date of Admission: 01/19/2025 Room/Bed: T3321/T3321 A [...] Acute respiratory failure with hypoxia ([facility]) [J96.01] Tracheostomy care ([facility]) [Z43.0] Pulmonary embolism (HCC) MCFP (current) use of antibiotics Complication of tracheostomy (CMS/HCC) ([facility]) BRBPR (bright red blood per rectum) Treatment: [...] - Before each treatment: Dialysis Machine No.: [id number] RO Machine Number: [id number] Dialyzer Lot No.: [id number] Tubing Lot Number: [id number] All Connections Secure: Yes Venous Parameters Set: Yes Arterial Parameters Set: Yes NS Bag: Yes Saline Line Double Clamped: Yes Dialyzer: Nipro Prime Volume (mL): 200 mL RO Machine Number: [id number] RO Machine Log Sheet Completed: Yes Machine Alarm Self Test: Completed, Passed (test passed at 0923) (01/24/25924) Air Foam Detector: Tested, Proper Function, pH Reading Extracorporeal Circuit Tested for Integrity: Yes Machine Conductivity: 13.8 Manual Conductivity: 13.8 Manual Ph: 7.2 Bleach Test (Neg): Yes (water check negative at 09) Bath Temperature: 36 C (96.8 F) Conductivity Meter Serial #: [id number] Machine Functioning Alarm Free? Yes Dialysis Bath: K+ (Potassium): 3 Ca+ (Calcium): 2.5 Na+ (Sodium): 137 HCO3 (Bicarb): 35 Bicarbonate Concentrate Lot No.: [id number] Acid Concentrate Lot No.: [id number] Chlorine Testing - Before each treatment and [...] Name: Jun Snyder Patient : 1965 Acct: [id number] Date of Admission: 01/19/2025 Room/Bed: T3321/T3321 A Code Status: Full Code Allergies: Allergies Allergen Reactions Lisinopril Swelling and Angioedema Diagnosis: Patient Active Problem List Diagnosis Anemia Paroxysmal A-fib ([facility]) ([facility]) HTN (hypertension) ESRD on hemodialysis ([facility]) ([facility]) IgA nephropathy determined by biopsy of kidney Diverticulosis Nonrheumatic aortic valve stenosis Calcification of abdominal aorta ([facility]) Missed vaccination due to patient refusal Tobacco abuse Alcohol use disorder in remission Atrial flutter, unspecified type ([facility]) RSV (acute bronchiolitis due to respiratory syncytial virus) Aortic stenosis Upper GI bleed S/P AVR Acute hypoxic respiratory failure ([facility]) Acute encephalopathy Pneumoperitoneum Gastric ulceration Severe malnutrition ([facility]) ([facility]) Pleural effusion Peritonitis due to fungus ([facility]) History of abdominal surgery Leg DVT (deep venous thromboembolism), acute, left ([facility]) Ischemic ulcer of toe of left foot, 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) Tracheostomy dependence ([facility]) Leukocytosis Decubitus ulcer of sacral region, unstageable ([facility]) Pneumonia of both lungs due to methicillin susceptible Staphylococcus aureus (MSSA) ([facility]) Sacral osteomyelitis (CMS/HCC) ([facility]) Acute respiratory failure with hypoxia ([facility]) [J96.01] Tracheostomy care ([facility]) [Z43.0] Pulmonary embolism ([facility]) MCFP (current) use of antibiotics Complication of tracheostomy (CMS/HCC) ([facility]) Treatment: Hemodialysis 1:1 Priority: Routine Location: ICU [...] - Before each treatment: Dialysis Machine No.: [id number] RO Machine Number: [id number] Dialyzer Lot No.: [id number] Tubing Lot Number: [id number] All Connections Secure: Yes Venous Parameters Set: Yes Arterial Parameters Set: Yes NS Bag: Yes Saline Line Double Clamped: Yes Dialyzer: Nipro Prime Volume (mL): 250 mL RO Machine Number: [id number] RO Machine Log Sheet Completed: Yes Machine Alarm Self Test: Completed, Passed (01/22/25850) Air Foam Detector: Tested, Proper Function, pH Reading Extracorporeal Circuit Tested for Integrity: Yes Machine Conductivity: (13.8) Manual Conductivity: 14 Manual Ph: 7.2 Bleach Test (Neg): Yes Bath Temperature: 36 C (96.8 F) Conductivity Meter Serial #: [id number] Machine Functioning Alarm Free? 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 Complication of tracheostomy (CMS/HCC) ([facility]) Treatment: Hemodialysis 1:1 Priority: Routine Location: Bedside [...] WBC 10.5 01/20/2025513 HGB 8.2 (L) 01/20/2025 08 HGB 9.4 11/11/2024 0230 HCT 25.8 (L) 01/20/2025 0801 PLT 279 01/20/2025513 NA 135 (L) 01/20/2025513 K 4.8 01/20/2025513 CL 98 01/20/2025 0514 CO2 22 01/20/2025 0514 BUN 91 (H) 01/20/2025513 CREATININE 4.31 (H) 01/20/2025513 CREATININE 9.99 (H) 10/27/2019 05 CALCIUM 9.2 01/20/2025513 PHOS 6.1 (H) 01/20/2025513 IV Drips and Rate/Dose pantoprazole (ProtoNix) 80 mg in sodium chloride 0.9 % 100 mL (0.8 mg/mL) infusion, 8 mg/hr Safety - Before each treatment: Dialysis Machine No.: [id number] RO Machine Number: [id number] Dialyzer Lot No.: [id number] Tubing Lot Number: [id number] All Connections Secure: Yes Venous Parameters Set: Yes Arterial Parameters Set: Yes NS Bag: Yes Saline Line Double Clamped: Yes Dialyzer: Nipro Prime Volume (mL): 200 mL RO Machine Number: [id number] RO Machine Log Sheet Completed: Yes Machine Alarm Self Test: Completed, Passed (1000) (01/20/25 1000) Air Foam Detector: Tested, Proper Function, pH Reading Extracorporeal Circuit Tested for Integrity: Yes Machine Conductivity: 13.6 Manual Conductivity: 13.8 Manual Ph: 7.2 Bleach Test (Neg): Yes Bath Temperature: 36 C (96.8 F) Conductivity Meter Serial #: [id number] Machine Functioning Alarm Free? 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 7000 created in [facility] per TCC request. Facility notified via [facility]port. Authorization approved for the [facility] through 02/02/25, discharge orders placed, ROSENDO completed. Transportation placed and confirmed for today 02/01/25 at 330pm to the [facility], physician/patient/hospital secretary/RN aware. [facility] tasked to send 7000 and DC summary. Hep B panels, 3 days of HD flowsheets, MAR and OPAT sent to the [facility] via [facility]. Call placed to the [facility] to confirm able to still take patient [...] Nutrition Support Outcome: Progressing Updates placed to [facility] per TCC request. Await [...] Nutrition Support Outcome: Progressing Message sent to Rat Poisoner to start [facility] auth for [facility]. Problem: Pain - Adult Goal: [...] order to start auth to return to [facility] per previous TCC note of [...] or Improved Outcome: Progressing Updates placed to [facility] Return - [facility] via [facility]port per TCC request. Await review and response regarding ability to accept. TCC notified. Electronically signed by [facility] Sabino Rodrigues Tasked [facility] to send updates to [facility], per their request. Warfarin bridging [...] Outcome: Progressing Dialysis [facility] via [facility] per TCC request. Care Management Progress Note PCU transfer pending. Received one unit PRBC this AM for low Hgb. HD today. Heparin drip ongoing. IVAB (plan for 6 week course). Wound vac to sacral wound. Room Air. Dysphagia diet; pureed. DC plan - [facility]. Facility updated via careport. JEWELRY DRILL OPERATOR asked to send dialysis note per their [...] - Payne indicated: N/A OPAT placed to [facility] via [facility]port per TCC request. 01/25/25 1047 Rapid Rounds Attendance Medical Record Coder Planned Discharge Disposition SNF Today we still await Administering IV medications;Winch Stripper recommendations (comment);Clinical stability;Symptomatic control;Post-discharge arrangement completion (comment) Patient remains on MICU. S/P colonoscopy 01/24-negative for active bleeding. Heparin drip resumed post procedure. Wound vac to sacral wound; IVAB till 02/13; OPAT under chart review > media. Plan for MBSS. Room Air. DC plan - [facility] when medically appropriate. CM will continue [...] Interventions Goal: Nutrition Support [facility] Procedure Date: 01/24/2025 12:37 PM Gender: Male Date of : 1965 Age: 59 Admit Type: Inpatient Note Status: Finalized Endoscopist: Chadd Davis MD, [id number] Procedure: Colonoscopy Indications: Evaluation of unexplained GI [...] by the physician, the nurse and the silver miner in the pre-procedure area in the procedure [...] anticoagulant use Procedure Code(s): --- Professional --- 31446, Colonoscopy, flexible; diagnostic, including collection of specimen(s) by brushing or washing, when performed (separate procedure) --- Technical --- 84984, Colonoscopy, flexible; diagnostic, including collection of specimen(s) by brushing or washing, when performed (separate procedure) Diagnosis Code(s): --- Professional --- K64.0, First degree hemorrhoids K92.1, Melena (includes Hematochezia) Z79.01, MCFP (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 anticoagulants K57.30, Diverticulosis of large intestine without perforation or abscess without bleeding --- Technical --- K64.0, First degree hemorrhoids K92.1, Melena (includes Hematochezia) Z79.01, MCFP (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 anticoagulants K57.30, Diverticulosis of large intestine without perforation or abscess without bleeding CPT copyright 2021 [employer]. All rights reserved. The codes documented in this report are preliminary and upon roll forming machine operator review may be revised to [...] Early Mobility/Exercise Safety Screen: Activity: Bed mobility -[facility] Score: Lying in bed LDAs Peripheral IV [...] Problem: Complication of tracheostomy ([facility]) ([facility]) Active Problems: Severe malnutrition ([facility]) ([facility]) Chief Complaint: Jun Snyder is a 59 y.o. male with chief complaint of: trach complications, OM from decub Reason Palliative Following:Goals of Care Plan:Ongoing Goals of Care Discussions and Support Code Status: Full Code Medications: Palliative Care Not Managing Any Medications Nursing: Nursing Home Care and Skin Integrity Social Work: Palliative [...] HCPOA. Palliative SW discussed patient with Floor Codi. Patient appropriate to complete HCPOA. Palliative SW and CM met with patient at bedside. Palliative SW introduced self, reviewed role on the palliative care team, reviewed Health Care Power of [employer] (HCPOA) with patient. Patient agreeable to complete [...] and SW; ko Nelson primary agent and Toma laurence SARAH, secondary agent. DC plan - return to [facility]. CM will continue to follow Length of Stay (Days): 1 GMLOS: 4.5 Images from the original note were not included. [facility] Palliative Care Transitions of Care Note Jun Snyder : 1965 ADMIT DATE: 01/19/2025 DISCHARGE DATE: TBD PRIMARY CARE PHYSICIAN: Leilani Troncoso CODE STATUS: Full Code DISCHARGE DIAGNOSES: Principal Problem: Complication of tracheostomy (CMS/HCC) (HCC) Active Problems: Severe malnutrition (CMS/HCC) ([facility]) BRBPR (bright red blood per rectum) HOSPITAL [...] to have bile peritonitis" 11/28/24: transferred to [facility] He ended up developing sacral ulcer and osteomyelitis at [facility]. He then ended up dislodging his tracheostomy, and was brought to [facility] ED for further care. Palliative care consulted for goals of care. Goals of care - Patient has capacity to make medical decisions - legal surrogate decision maker HCPOA Omar, 1st alternate is significant other Toma - goals of care include: 1) to continue current management, continue with aggressive medical therapy, procedures, antibiotics at this time - planning to eventually discharge to [facility] - will forward chart to Palliative [...] AV replacement Supratherapeutic INR - [facility] Paper Box Maker valve in 09/2024 - coumadin held due to bleeding and supratherapeutic levels Chronic respiratory failure s/p tracheostomy Tracheostomy dislodgement - has been saturating well without trach on RA so has not been replaced FOLLOW UP TESTING, PENDING RESULTS OR REFERRALS AT TRANSITIONAL CARE VISIT: No DISPOSITION: Skilled Rehab Facility FACILITY/HOME CARE AGENCY NAME: [facility] Follow up with Palliative Care [...] Safety: The patient was placed on a rural route carrier and vital signs, pulse oximetry, and level [...] as signed by this procedure note. [facility] Jun Snyder Procedure Date: 01/21/2025 9:59 AM Gender: Male Date of : 1965 Age: 59 Admit Type: Inpatient Note Status: Finalized Endoscopist: ELDON Alba MD, [id number] Procedure: Upper GI endoscopy Indications: Acute post [...] by the physician, the nurse and the silver miner in the pre-procedure area in the procedure [...] loss: None. Procedure Code(s): --- Professional --- 41048, Esophagogastroduodenoscopy, flexible, transoral; diagnostic, including collection of specimen(s) by brushing or washing, when performed (separate procedure) --- Technical --- 08010, Esophagogastroduodenoscopy, flexible, transoral; diagnostic, including collection of [...] D62, Acute posthemorrhagic anemia CPT copyright 2021 [employer]. All rights reserved. The codes documented in this report are preliminary and upon roll forming machine operator review may be revised to [...] Care Plan Patient was transferred over from [facility] after self-dislodged tracheostomy this morning around 0600. [...] and treatment plans Return referral placed to [facility] via [facility] per TCC request. Await review and response regarding ability to accept. TCC notified. 01/19/25 1300 Rapid Rounds Attendance Medical Record Coder Planned Discharge Disposition SNF Today we still await Clinical stability;Winch Stripper recommendations (comment);Symptomatic control;Post-discharge arrangement completion (comment) Patient admitted due to trach dislodgement. Patient was discharged from [facility] to [facility]; there only a matter of hours per [...] He would like patient to return to [facility] is able at [place]. Does not want patient to return to [facility]. JEWELRY DRILL OPERATOR asked to place referral to [facility]. CM will continue to follow for DC [...] improved Outcome: Progressing documented in this encounter [facility] 02-01-2025 History of Presen t illness Narrative Images from the original note were not included. [facility] - Infectious Diseases Advanced [...] negative 01/22 A baumannii screen: negative Previous ([facility]) 01/02- sacral wound cx- E faecalis (Amp-S), skin ila, Clostridium clostrioforme 01/01- blood cx- 2/2 NG 12/30- blood cx- 2/2 NGTD 12/30- sputum cx- MSSA, resp ila 12/25- blood cx- 2/2 negative 12/14- sputum cx- MSSA, resp ila 12/14- MRSA pcr- MSSA 12/11- sputum cx- MSSA, resp ila Previous ([facility]) 11/28- L pleural fluid- negative [...] use of antimicrobials. Mikala MORAN PA-C [facility] Infectious Disease Nephrology Progress Note Following for [...] not included. Speech-Language Pathology SPEECH LANGUAGE PATHOLOGY [facility] Dysphagia Treatment Note Patient Name: Jun Snyder [...] strategies. Plan & Recommendations Plan: Continue acute CREDIT CONTROL CLERK therapy per initial plan of care and [...] Expected End: 02/02/25 Resolved: 01/25/25 Therapy Time CREDIT CONTROL CLERK Individual Minutes Time In: 816 Time Out: 829 Minutes: 13 KRISTEN SalazarCREDIT CONTROL CLERK Hospitalist Progress Note Subjective: Admit Date: 01/19/2025 PCP: Leilani Troncoso Room#: 1C-144/1C-144 A Chief Complaint Patient presents with Tracheostomy Tube Change Brief Hospital course: Jun Snyder is a 59 y.o. male who who presented to [facility] 01/19 after inadvertent removal of his tracheostomy. He was transferred to [facility] ICU for surgical evaluation. On [...] HD successfully. hemodynamically stable. Transferred out to [facility] 01/27 ID following for sacral osteomyelitis, s/p wound debridement to bone on 01/02, cultures grew E faecalis and Clostridium, continue with renally dosed ampicillin sulbactam for 6 weeks course through 02/13/2025, needs tunneled line, status post IR CVC tunneled line on 01/29 Nephrology following, on dialysis CREDIT CONTROL CLERK following PT/OT recommends SNF Patient will be [...] Date Acute renal failure (ARF) ([facility]) 10/19/2019 Anemia 12/30/2021 Calcification of abdominal aorta ([facility]) 10/08/202309/[address] abd Diverticulosis 10/08/2023 ESRD on hemodialysis ([facility]) ([facility]) 10/26/2019 Hemodialysis patient ([facility]) ([facility]) HTN (hypertension) 12/01/2022 Hypertension IgA nephropathy IgA [...] Labs 01/30/25 0047 01/31/25 0010 02/01/25 011 PROTIME 24.9* 22.4* 20.3* INR 2.5* 2.2* [...] 20 mL/hr, Last Rate: 20 mL/hr (01/30/25 9858) Assessment Data: (CAT1) Reviewed 2 notes from [...] by ID -S/p tunneled central line placement -CREDIT CONTROL CLERK follow, dysphagia diet -PT OT DC recommend [...] MD Division of Hospital Medicine Inpatient Medical Services/[facility] Anticoagulation Management Service ([facility]) Inpatient Warfarin Consult HPI: Jun Snyder is a 59 y.o. male admitted on 01/19/2025 for Complication of tracheostomy (CMS/HCC) (HCC) [J95.00] Past Medical History: Diagnosis Date Acute renal failure (ARF) ([facility]) 10/19/2019 Anemia 12/30/2021 Calcification of abdominal aorta ([facility]) 10/08/202309/[address] abd Diverticulosis 10/08/2023 ESRD on hemodialysis ([facility]) ([facility]) 10/26/2019 Hemodialysis patient ([facility]) ([facility]) HTN (hypertension) 12/01/2022 Hypertension IgA nephropathy IgA nephropathy determined by biopsy of kidney 10/26/2019 Missed vaccination due to patient refusal 10/08/2023 Has a number of non-scientific based beliefs which interfere with his understanding and acceptance of the medical benefit of vaccination. Nonrheumatic aortic valve stenosis 10/08/2023 Paroxysmal A-fib ([facility]) ([facility]) 08/18/2023 Tobacco abuse 10/08/2023 Patient is on [...] Tiffanie Dial RPh [facility] is available daily [phone] via Exaptive Chat. If no response on Exaptive Chat then please page [phone]. Images from the original note were not included. OCCUPATIONAL THERAPY [facility] Re-Evaluation Name/MRN: Jair Snyder ([id number]) Evaluation Date: 01/31/2025 Date of : 1965 Admission Date: 01/19/2025 2:13 AM Age: 59 y.o. Room/Bed: 1C144/1C144 A Discharge Recommendation: Nursing Home Facility Other: DME TBD Assessment IMPRESSION: OT [...] Date Acute renal failure (ARF) ([facility]) 10/19/2019 Anemia 12/30/2021 Calcification of abdominal aorta ([facility]) 10/08/202309/[address] abd Diverticulosis 10/08/2023 ESRD on hemodialysis ([facility]) ([facility]) 10/26/2019 Hemodialysis patient ([facility]) ([facility]) HTN (hypertension) 12/01/2022 Hypertension IgA nephropathy IgA nephropathy determined by biopsy of kidney 10/26/2019 Missed vaccination due to patient refusal 10/08/2023 Has a number of non-scientific based beliefs which interfere with his understanding and acceptance of the medical benefit of vaccination. Nonrheumatic aortic valve stenosis 10/08/2023 Paroxysmal A-fib ([facility]) ([facility]) 08/18/2023 Tobacco abuse 10/08/2023 Past Surgical History: Past Surgical History: Procedure Laterality Date APPENDECTOMY CARDIAC CATHETERIZATION N/A 10/09/2024 Performed by Bob Watson MD at [facility] Cardiac Cath/EP Lab CARDIAC CATHETERIZATION Bilateral 11/01/2024 Performed by Bob Watson MD at [facility] Cardiac Cath/EP Lab CARDIAC CATHETERIZATION N/A 11/01/2024 Performed by Bob Watson MD at [facility] Cardiac Cath/EP Lab COLONOSCOPY N/A 01/24/2025 Performed by Chadd Davis MD at [facility] ENDOSCOPY FISTULAGRAM (HISTORICAL) Left 09/15/2021 LEFT UPPER ARM HX AV FISTULA CREATION IR EMBOLIZATION 10/14/2024 IR EMBOLIZATION 10/14/2024 [facility] SPECIAL PROCEDURES IR FISTULAGRAM 08/07/2022 IR FISTULAGRAM 08/07/2022 [facility] IR IMAGING TONSILLECTOMY (HISTORICAL) Admission Diagnosis: Patient Active Problem List Diagnosis Date Noted Severe malnutrition ([facility]) ([facility]) 01/19/2025 Complication of tracheostomy ([facility]) ([facility]) 01/19/2025 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 01/12/2025 Acute respiratory failure with hypoxia ([facility]) [J96.01] 01/08/2025 Tracheostomy care ([facility]) [Z43.0] 01/08/2025 Pulmonary embolism ([facility]) 01/08/2025 Sacral osteomyelitis ([facility]) ([facility]) 01/03/2025 Pneumonia of both lungs due to methicillin susceptible Staphylococcus aureus (MSSA) ([facility]) 01/01/2025 Leukocytosis 12/30/2024 Decubitus ulcer of sacral region, unstageable ([facility]) 12/30/2024 Peritonitis due to fungus ([facility]) 11/30/2024 History of abdominal surgery 11/30/2024 Leg DVT (deep venous thromboembolism), acute, left ([facility]) 11/30/2024 Ischemic ulcer of toe of left foot, limited to breakdown of skin ([facility]) 11/30/2024 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[facility]) 11/30/2024 Pleural effusion 11/28/2024 Gastric ulceration 2024 Atrial flutter, unspecified type ([facility]) 10/03/2024 RSV (acute bronchiolitis due to respiratory syncytial virus) 10/03/2024 Diverticulosis 10/08/2023 Nonrheumatic aortic valve stenosis 10/08/2023 Calcification of abdominal aorta ([facility]) 10/08/2023 Missed vaccination due to patient refusal 10/08/2023 Tobacco abuse 10/08/2023 Alcohol use disorder in remission 10/08/2023 Paroxysmal A-fib ([facility]) ([facility]) 08/18/2023 HTN (hypertension) 12/01/2022 ESRD on hemodialysis ([facility]) ([facility]) 10/26/2019 IgA nephropathy determined by biopsy of kidney 10/26/2019 BRBPR (bright red blood per rectum) 01/19/2025 Aortic stenosis 10/03/2024 Upper GI bleed 10/03/2024 S/P AVR 10/03/2024 Acute hypoxic respiratory failure ([facility]) 10/03/2024 Acute encephalopathy 10/03/2024 Pneumoperitoneum 10/03/2024 Anemia [...] of Care supervision is transferred to a [facility] Therapy Services Occupational Therapist. Goals and/or treatment plan was established in collaboration with patient/family/other representatives. Images from the original note were not included. Speech-Language Pathology SPEECH LANGUAGE PATHOLOGY [facility] Dysphagia Treatment Note Patient Name: Jun Snyder Evaluation Date: 01/31/2025 Date of : 1965 Admission Date: 01/19/2025 2:13 AM Age: 59 y.o. Room/Bed: 1C-144/1C144 A Subjective Patient alert and cooperative. Seen [...] diet and for oropharyngeal strengthening. Continue acute CREDIT CONTROL CLERK therapy per initial plan of care and [...] Expected End: 02/02/25 Resolved: 01/25/25 Therapy Time CREDIT CONTROL CLERK Individual Minutes Time In: 1454 Time Out: 1515 Minutes: 21 FRANKLIN Carmona Images from the original note were not included. OCCUPATIONAL THERAPY [facility] Name/MRN: Jair Snyder ([id number]) Date: 01/31/2025 Attempted OT re-eval once pt returned from dialysis, pt very fatigued. Initially responsive to OT then stops conversing and unable to remain roused. Will follow and attempt as able. RONNY Ramirez/Tameka Images from the original note were not included. [facility] - Infectious Diseases Advanced [...] negative 01/22 A baumannii screen: negative Previous ([facility]) 01/02- sacral wound cx- E faecalis (Amp-S), skin ila, Clostridium clostrioforme 01/01- blood cx- 2/2 NG 12/30- blood cx- 2/2 NGTD 12/30- sputum cx- MSSA, resp ila 12/25- blood cx- 2/2 negative 12/14- sputum cx- MSSA, resp ila 12/14- MRSA pcr- MSSA 12/11- sputum cx- MSSA, resp ila Previous ([facility]) 11/28- L pleural fluid- negative [...] use of antimicrobials. Mikala MORAN PA-C [facility] Infectious Disease Images from the original note were not included. OCCUPATIONAL THERAPY [facility] Name/MRN: Jair Snyder ([id number]) Date: 01/31/2025 Attempted OT re-eval this AM, [...] or concerns Bree Molina APRN, CNP A-G PLASTIC BUBBLE PACKER [facility] [phone] Pt seen and examined independently by me. I reviewed with DENIA-SAMIA the medical history and the findings on physical examination. I discussed the patient s diagnosis and concur with the treatment plan as documented in his note. Please call [phone] or message me through Exaptive with any questions or concerns. [facility] Anticoagulation Management Service ([facility]) Inpatient Warfarin Consult HPI: Jun Snyder is a 59 y.o. male admitted on 01/19/2025 for Complication of tracheostomy (CMS/HCC) (HCC) [J95.00] Past Medical History: Diagnosis Date Acute renal failure (ARF) ([facility]) 10/19/2019 Anemia 12/30/2021 Calcification of abdominal aorta ([facility]) 10/08/202309/[address] abd Diverticulosis 10/08/2023 ESRD on hemodialysis ([facility]) ([facility]) 10/26/2019 Hemodialysis patient ([facility]) ([facility]) HTN (hypertension) 12/01/2022 Hypertension IgA nephropathy IgA nephropathy determined by biopsy of kidney 10/26/2019 Missed vaccination due to patient refusal 10/08/2023 Has a number of non-scientific based beliefs which interfere with his understanding and acceptance of the medical benefit of vaccination. Nonrheumatic aortic valve stenosis 10/08/2023 Paroxysmal A-fib ([facility]) ([facility]) 08/18/2023 Tobacco abuse 10/08/2023 Patient is on warfarin for Afib, mechanical AVR and has a goal INR 2.0 - 3.0. Warfarin is currently managed by facility, has yet to be seen by [facility]. Pt's home dose of warfarin is not yet established, managed by facility. S/sx of bleeding= internal hemorrhoids, no other bleeding noted Interacting medications= none Labs: Recent Labs 01/29/25 0337 01/30/25 0047 01/30/25 1224 01/31/25 0010 HGB 8.6* 8.7* 9.8* 8.8* HCT 27.3* 28.1* 31.5* 27.9* PLT 271 276 -- 278 Recent Labs 01/31/25 0010 INR 2.2* Date INR Dose 01/31 2.2 0.5mg 5 2.5 HOLD 01/29 2.4 Held 01/28 2.2 0.5mg 5 1.9 1mg 01/26 1.8 1 mg 01/25 [...] dose accordingly 3. Will facilitate f/u at [facility] upon discharge Tiffanie Dial RPh [facility] is available daily [phone] via Y-Klub. If no response on Exaptive Chat then please page [phone]. Hospitalist Progress Note Subjective: Admit Date: 01/19/2025 PCP: Leilani Troncoso Room#: 1C-144/1C-144 A Chief Complaint Patient presents with Tracheostomy Tube Change Brief Hospital course: Jun Snyder is a 59 y.o. male who who presented to [facility] 01/19 after inadvertent removal of his tracheostomy. He was transferred to [facility] ICU for surgical evaluation. On [...] line on 01/29 Nephrology following, on dialysis CREDIT CONTROL CLERK following PT recommends SNF Interval History: 01/31/2025-No overnight issues. Patient is seen and examined Patient is resting in his bed Dialysis today Denies any new acute complaints Labs reviewed, ESRD picture, hemoglobin 8.8, stable Case and plan discussed with patient and bedside nurse. All questions answered. Past Medical History: Past Medical History: Diagnosis Date Acute renal failure (ARF) ([facility]) 10/19/2019 Anemia 12/30/2021 Calcification of abdominal aorta (HCC) 10/08/202309/[address] abd Diverticulosis 10/08/2023 ESRD on hemodialysis ([facility]) ([facility]) 10/26/2019 Hemodialysis patient ([facility]) ([facility]) HTN (hypertension) 12/01/2022 Hypertension IgA nephropathy IgA nephropathy determined by biopsy of kidney 10/26/2019 Missed vaccination due to patient refusal 10/08/2023 Has a number of non-scientific based beliefs which interfere with his understanding and acceptance of the medical benefit of vaccination. Nonrheumatic aortic valve stenosis 10/08/2023 Paroxysmal A-fib ([facility]) ([facility]) 08/18/2023 Tobacco abuse 10/08/2023 Adult diet Dysphagia [...] 20 mL/hr, Last Rate: 20 mL/hr (01/30/25 5156) Assessment Data: (CAT1) Reviewed 2 notes from [...] by ID -S/p tunneled central line placement -CREDIT CONTROL CLERK follow, dysphagia diet -PT OT DC planning [...] Division of Hospital Medicine Inpatient Medical Services/[place] [facility] Anticoagulation Management Service ([facility]) Inpatient Warfarin Consult HPI: Jun Snyder is a 59 y.o. male admitted on 01/19/2025 for Complication of tracheostomy (CMS/HCC) ([facility]) [J95.00] Past Medical History: Diagnosis Date Acute renal failure (ARF) ([facility]) 10/19/2019 Anemia 12/30/2021 Calcification of abdominal aorta ([facility]) 10/08/202309/[address] abd Diverticulosis 10/08/2023 ESRD on hemodialysis ([facility]) ([facility]) 10/26/2019 Hemodialysis patient ([facility]) ([facility]) HTN (hypertension) 12/01/2022 Hypertension IgA nephropathy IgA nephropathy determined by biopsy of kidney 10/26/2019 Missed vaccination due to patient refusal 10/08/2023 Has a number of non-scientific based beliefs which interfere with his understanding and acceptance of the medical benefit of vaccination. Nonrheumatic aortic valve stenosis 10/08/2023 Paroxysmal A-fib ([facility]) ([facility]) 08/18/2023 Tobacco abuse 10/08/2023 Patient is on [...] f/u at [facility] upon discharge Fatuma Odonnell RPh [facility] is available daily [phone] via Exaptive Chat. If no response on Exaptive Chat then please page [phone]. Images from the original note were not included. OCCUPATIONAL THERAPY [facility] Name/MRN: Jair Snyder ([id number]) Date: 01/30/2025 Attempted OT services however, Pt [...] candidate for diet upgrade. Christina Limon MS, CCC/CREDIT CONTROL CLERK Nutrition Assessment Type and Reason for Visit: [...] Severe who remains admitted after presenting to [facility] on 01/19 after inadvertent removal of his tracheostomy. He was transferred to [facility] ICU for surgical evaluation, however pt was maintaining appropriate O2 saturations on room air and the decision was made to leave the tracheostomy out. Pt transferred to [facility] later that day (01/19). Course [...] MWF schedule with Nephrology following. Transferred to [facility] 01/27. ID continues following for sacral osteomyelitis and recs IV Unasyn x 6 weeks--> stop date 02/13. Course c/b anxiousness and paranoia, often refusing care and wound dressing changes. In terms of nutrition, pt was only receiving nutrition via PEG QUALITY ASSURANCE CALIBRATOR. He was NPO 01/19, Nepro @ 50mls/hr initiated 01/20 which ran until pt was made NPO/CLD for colonoscopy prep 01/23. Remained NPO 01/24, underwent MBSS 01/25 with recs for pureed/thin which remains his current diet with CREDIT CONTROL CLERK following and recommending the same. PO intake [...] bedscale, 10/31: 200#, 11/28: 161#, 01/18: 142#) [place] Body Weight (lbs) (Calculated): 166 lbs [place] Body Weight (Kg) (Calculated): 75 kg % [place] Body Weight (Calculated): 70.5 % BMI (kg/m2) [...] soon to determine Marilu Pollock RD Contact: [phone] Images from the original note were not included. PHYSICAL THERAPY [facility] Treatment Note Name/MRN: Jair Snyder ([id number]) Date of : 1965 Age: 59 y.o. Room/Bed: 1C-144/1C-144 A Discharge Recommendation: Nursing Home Facility Other: tbd Assessment Pt requires mod [...] (2FA) Jocelin Ramirez PTA Cosigned by Betty Grady, PT at 01/30/2025 1:28 PM EDT Patient receiving other care, will attempt smoking cessation counseling at a later date. Images from the original note were not included. 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 Mental [...] of moderate complexity. Mikala MORAN PA-C [facility] Infectious Disease Hospitalist Progress Note Subjective: Admit Date: 01/19/2025 PCP: Leilani Troncoso Room#: 1C-144/-144 A Chief Complaint Patient presents with Tracheostomy Tube Change Brief Hospital course: Jun Snyder is a 59 y.o. male who who presented to [facility] 01/19 after inadvertent removal of his tracheostomy. He was transferred to [facility] ICU for surgical evaluation. On [...] HD successfully. hemodynamically stable. Transferred out to [facility] 01/27 ID following for sacral osteomyelitis, s/p wound debridement to bone on 01/02, cultures grew E faecalis and Clostridium, continue with renally dosed ampicillin sulbactam for 6 weeks course through 02/13/2025, needs tunneled line, status post IR CVC tunneled line on 01/29 Nephrology following, on dialysis CREDIT CONTROL CLERK following PT recommends SNF Interval History: 01/30/2025-No [...] Date Acute renal failure (ARF) ([facility]) 10/19/2019 Anemia 12/30/2021 Calcification of abdominal aorta ([facility]) 10/08/202309/[address] abd Diverticulosis 10/08/2023 ESRD on hemodialysis ([facility]) ([facility]) 10/26/2019 Hemodialysis patient ([facility] ([facility]) HTN (hypertension) 12/01/2022 Hypertension IgA nephropathy IgA nephropathy determined by biopsy of kidney 10/26/2019 Missed vaccination due to patient refusal 10/08/2023 Has a number of non-scientific based beliefs which interfere with his understanding and acceptance of the medical benefit of vaccination. Nonrheumatic aortic valve stenosis 10/08/2023 Paroxysmal A-fib [facility] [facility]) ([facility]) 08/18/2023 Tobacco abuse 10/08/2023 Adult diet Dysphagia [...] 276 BMP: Recent Labs 01/28/25 0632 01/29/25 33601/30/2546 NA 137 134* 135* K 3.6 3.7 [...] by ID -S/p tunneled central line placement -CREDIT CONTROL CLERK follow, dysphagia diet -PT OT DC planning [...] MD Division of Hospital Medicine Inpatient Medical Services/[facility] Progress Note Mr. Jun Snyder is [...] status and labs. Please message me through Little Black Bag chat with any questions or concerns. Wellington Nicole MD 01/30/2025 9:08 AM [facility] [address], [address] [place] [address] Office: [phone] Images from the original note were not included. Speech-Language Pathology SPEECH LANGUAGE PATHOLOGY [facility] Dysphagia Treatment Note Patient Name: Jun Snyder [...] Expected End: 02/02/25 Resolved: 01/25/25 Therapy Time CREDIT CONTROL CLERK Individual Minutes Time In: 1438 Time Out: 1456 Minutes: 18 FRANKLIN Bailon Images from the original note were not included. [facility] - Infectious Diseases Attending [...] 01/29/2025336 CL 94 (L) 01/29/2025336 CO2 23 01/29/2025 0337 BUN 21 01/29/2025 [...] be of low complexity. Radha Yee MD [facility] Progress Note Mr. Jun Snyder is [...] concerns. Wellington Nicole MD 01/29/2025 10:13 AM [facility] [address] [place] [address], [address] [place] [address] Office: [phone] Images from the original note were not included. Hospitalist Progress Note 01/29/2025 Subjective: Admit Date: 01/19/2025 PCP: Leilani Troncoso Room#: 1C-144/1C-144 A Brief Hospital Summary: Jun Snyder is a 59 y.o. male who who presented to [facility] 01/19 after inadvertent removal of his tracheostomy. He was transferred to [facility] ICU for surgical evaluation. On [...] HD successfully. hemodynamically stable. Transferred out to [facility] 01/27 Interval History: No overnight [...] Date Acute renal failure (ARF) ([facility]) 10/19/2019 Anemia 12/30/2021 Calcification of abdominal aorta ([facility]) 10/08/202309/[address] abd Diverticulosis 10/08/2023 ESRD on hemodialysis ([facility]) ([facility]) 10/26/2019 Hemodialysis patient ([facility]) ([facility]) HTN (hypertension) 12/01/2022 Hypertension IgA nephropathy IgA nephropathy determined by biopsy of kidney 10/26/2019 Missed vaccination due to patient refusal 10/08/2023 Has a number of non-scientific based beliefs which interfere with his understanding and acceptance of the medical benefit of vaccination. Nonrheumatic aortic valve stenosis 10/08/2023 Paroxysmal A-fib ([facility]) ([facility]) 08/18/2023 Tobacco abuse 10/08/2023 LABS: CBC: Recent [...] QT Interval 413 QTC Interval 515 P Edgar 69 QRS Edgar 93 T Wave Edgar 87 DE Interval 148 Impression Sinus rhythm Left atrial [...] sodium chloride 0.9 % 100 mL IVPB (Add-[place]), 3,000 mg, IntraVENous, q24h, Radha Yee MD, [...] q5 min PRN, Earlene Lozano APRN - HAZARDOUS MATERIALS WASTE TECHNICIAN, 5 mg at 01/25/25 1846 metoprolol tartrate (Lopressor) tablet 25 mg, 25 mg, Per G Tube, BID, Earlene Lozano, CONTINUOUS MINER OPERATOR HELPER - HAZARDOUS MATERIALS WASTE TECHNICIAN, 25 mg at 01/28/25 2222 midodrine (Proamatine) [...] infusion, 250 mL/hr, IntraVENous, PRN, Sangeeta Reyes, warfarin (Coumadin) tablet 0.5 mg, 0.5 mg, [...] by ID Ordered tunneled central line placement CREDIT CONTROL CLERK follow, dysphagia diet PT OT DC planning Past Medical History: Diagnosis Date Acute renal failure (ARF) ([facility]) 10/19/2019 Anemia 12/30/2021 Calcification of abdominal aorta ([facility]) 10/08/202309/[address] abd Diverticulosis 10/08/2023 ESRD on hemodialysis ([facility]) ([facility]) 10/26/2019 Hemodialysis patient ([facility]) ([facility]) HTN (hypertension) 12/01/2022 Hypertension IgA nephropathy IgA nephropathy determined by biopsy of kidney 10/26/2019 Missed vaccination due to patient refusal 10/08/2023 Has a number of non-scientific based beliefs which interfere with his understanding and acceptance of the medical benefit of vaccination. Nonrheumatic aortic valve stenosis 10/08/2023 Paroxysmal A-fib ([facility]) ([facility]) 08/18/2023 Tobacco abuse 10/08/2023 Plan As above [...] MD Division of Hospitalist Medicine Inpatient Medical Services/[facility] Images from the original note were not included. [facility] Wound Care Progress Note Jun Snyder [...] diverticulosis, IgA nephropathy, severe that presented to [facility] ED from a facility due to trach [...] Date Acute renal failure (ARF) ([facility]) 10/19/2019 Anemia 12/30/2021 Calcification of abdominal aorta ([facility]) 10/08/202309/[address] abd Diverticulosis 10/08/2023 ESRD on hemodialysis ([facility]) ([facility]) 10/26/2019 Hemodialysis patient ([facility]) ([facility]) HTN (hypertension) 12/01/2022 Hypertension IgA nephropathy IgA nephropathy determined by biopsy of kidney 10/26/2019 Missed vaccination due to patient refusal 10/08/2023 Has a number of non-scientific based beliefs which interfere with his understanding and acceptance of the medical benefit of vaccination. Nonrheumatic aortic valve stenosis 10/08/2023 Paroxysmal A-fib ([facility]) ([facility]) 08/18/2023 Tobacco abuse 10/08/2023 PAST SURGICAL HISTORY Past Surgical History: Procedure Laterality Date APPENDECTOMY CARDIAC CATHETERIZATION N/A 10/09/2024 Performed by Bob Watson MD at [facility] Cardiac Cath/EP Lab CARDIAC CATHETERIZATION Bilateral 11/01/2024 Performed by Bob Watson MD at [facility] Cardiac Cath/EP Lab CARDIAC CATHETERIZATION N/A 11/01/2024 Performed by Bob Watson MD at [facility] Cardiac Cath/EP Lab COLONOSCOPY N/A 01/24/2025 Performed by Chadd Davis MD at [facility] ENDOSCOPY FISTULAGRAM (HISTORICAL) Left 09/15/2021 LEFT UPPER ARM HX AV FISTULA CREATION IR EMBOLIZATION 10/14/2024 IR EMBOLIZATION 10/14/2024 [facility] SPECIAL PROCEDURES IR FISTULAGRAM 08/07/2022 IR FISTULAGRAM 08/07/2022 [facility] IR IMAGING TONSILLECTOMY (HISTORICAL) FAMILY HISTORY Family [...] Medication Sig Dispense Refill epoetin rowan-epbx (Retacrit) 68639 UNIT/ML injection Inject 0.79 mL (7,900 Units) [...] apply Betadine and allow to dry, leave LIVESTOCK HAULIER daily and PRN -Recommend PVRs for circulation check Nutritional support Wound Care to follow Recommend to follow up at [facility] Outpatient wound care center after hospital [...] Gill DO at 01/29/2025 4:37 PM EDT [facility] Anticoagulation Management Service ([facility]) Inpatient Warfarin Consult HPI: Jun Snyder is a 59 y.o. male admitted on 01/19/2025 for Complication of tracheostomy ([facility]) ([facility]) [J95.00] Past Medical History: Diagnosis Date Acute renal failure (ARF) ([facility]) 10/19/2019 Anemia 12/30/2021 Calcification of abdominal aorta ([facility]) 10/08/202309/[address] abd Diverticulosis 10/08/2023 ESRD on hemodialysis ([facility]) ([facility]) 10/26/2019 Hemodialysis patient ([facility]) ([facility]) HTN (hypertension) 12/01/2022 Hypertension IgA nephropathy IgA [...] dose accordingly 3. Will facilitate f/u at [facility] upon discharge Fatuma Odonnell RPh [facility] is available daily [phone] via Exaptive Chat. If no response on Exaptive Chat then please page [phone]. [facility] Progress Note Mr. Jun Snyder is [...] concerns. Wellington Nicole MD 01/28/2025 2:08 PM [facility] [address] [place] [address], [address] [place] [address] Office: [phone] Hospitalist Progress Note 01/28/2025 Subjective: Admit Date: 01/19/2025 PCP: Leilani Troncoso Room#: 1C-144/1C-144 A Brief Hospital Summary: Jun Snyder is a 59 y.o. male who who presented to [facility] 01/19 after inadvertent removal of his tracheostomy. He was transferred to [facility] ICU for surgical evaluation. On [...] HD successfully. hemodynamically stable. Transferred out to [facility] 01/27 Interval History: No overnight [...] Date Acute renal failure (ARF) ([facility]) 10/19/2019 Anemia 12/30/2021 Calcification of abdominal aorta (HCC) 10/08/202309/[address] abd Diverticulosis 10/08/2023 ESRD on hemodialysis ([facility]) ([facility]) 10/26/2019 Hemodialysis patient ([facility]) ([facility]) HTN (hypertension) 12/01/2022 Hypertension IgA nephropathy IgA nephropathy determined by biopsy of kidney 10/26/2019 Missed vaccination due to patient refusal 10/08/2023 Has a number of non-scientific based beliefs which interfere with his understanding and acceptance of the medical benefit of vaccination. Nonrheumatic aortic valve stenosis 10/08/2023 Paroxysmal A-fib ([facility]) ([facility]) 08/18/2023 Tobacco abuse 10/08/2023 LABS: CBC: Recent [...] QT Interval 413 QTC Interval 515 P Edgar 69 QRS Edgar 93 T Wave Edgar 87 DE Interval 148 Impression Sinus rhythm Left atrial [...] sodium chloride 0.9 % 100 mL IVPB (Add-[place]), 3,000 mg, IntraVENous, q24h, Radha Yee MD, [...] mg, 5 mg, IntraVENous, q5 min PRN, DENIA Cage HAZARDOUS MATERIALS WASTE TECHNICIAN, 5 mg at 01/25/25 1846 metoprolol tartrate (Lopressor) tablet 25 mg, 25 mg, Per G Tube, BID, DENIA Cage HAZARDOUS MATERIALS WASTE TECHNICIAN, 25 mg at 01/28/25 0848 midodrine (Proamatine) [...] for sacral wound by ID PT OT CREDIT CONTROL CLERK follow, dysphagia diet Past Medical History: Diagnosis Date Acute renal failure (ARF) ([facility]) 10/19/2019 Anemia 12/30/2021 Calcification of abdominal aorta (HCC) 10/08/202309/[address] abd Diverticulosis 10/08/2023 ESRD on hemodialysis ([facility]) ([facility]) 10/26/2019 Hemodialysis patient ([facility]) ([facility]) HTN (hypertension) 12/01/2022 Hypertension IgA nephropathy IgA nephropathy determined by biopsy of kidney 10/26/2019 Missed vaccination due to patient refusal 10/08/2023 Has a number of non-scientific based beliefs which interfere with his understanding and acceptance of the medical benefit of vaccination. Nonrheumatic aortic valve stenosis 10/08/2023 Paroxysmal A-fib ([facility]) ([facility]) 08/18/2023 Tobacco abuse 10/08/2023 Plan As above [...] Division of Hospitalist Medicine Inpatient Medical Services/[facility] Anticoagulation Management Service ([facility]) Inpatient Warfarin Consult HPI: Jun Snyder is a 59 y.o. male admitted on 01/19/2025 for Complication of tracheostomy ([facility]) ([facility]) [J95.00] Past Medical History: Diagnosis Date Acute renal failure (ARF) ([facility]) 10/19/2019 Anemia 12/30/2021 Calcification of abdominal aorta ([facility]) 10/08/202309/[address] abd Diverticulosis 10/08/2023 ESRD on hemodialysis ([facility]) ([facility]) 10/26/2019 Hemodialysis patient ([facility]) ([facility]) HTN (hypertension) 12/01/2022 Hypertension IgA nephropathy IgA nephropathy determined by biopsy of kidney 10/26/2019 Missed vaccination due to patient refusal 10/08/2023 Has a number of non-scientific based beliefs which interfere with his understanding and acceptance of the medical benefit of vaccination. Nonrheumatic aortic valve stenosis 10/08/2023 Paroxysmal A-fib ([facility]) ([facility]) 08/18/2023 Tobacco abuse 10/08/2023 Patient is on warfarin for Afib, mechanical AVR and has a goal INR 2.0 - 3.0. Warfarin is currently managed by facility, has yet to be seen by [facility]. Pt's home dose of warfarin is [...] dose accordingly 3. Will facilitate f/u at [facility] upon discharge Vu Guido PharmD [facility] is available daily [phone] via Y-Klub. If no response on Exaptive Chat then please page [phone]. [facility] Anticoagulation Management Service ([facility]) Inpatient Warfarin Consult HPI: Jun Snyder is a 59 y.o. male admitted on 01/19/2025 for Complication of tracheostomy (CMS/HCC) (HCC) [J95.00] Past Medical History: Diagnosis Date Acute renal failure (ARF) (HCC) 10/19/2019 Anemia 12/30/2021 Calcification of abdominal aorta (HCC) 10/08/202309/[address] abd Diverticulosis 10/08/2023 ESRD on hemodialysis ([facility]) ([facility]) 10/26/2019 Hemodialysis patient ([facility]) ([facility]) HTN (hypertension) 12/01/2022 Hypertension IgA nephropathy IgA nephropathy determined by biopsy of kidney 10/26/2019 Missed vaccination due to patient refusal 10/08/2023 Has a number of non-scientific based beliefs which interfere with his understanding and acceptance of the medical benefit of vaccination. Nonrheumatic aortic valve stenosis 10/08/2023 Paroxysmal A-fib ([facility]) ([facility]) 08/18/2023 Tobacco abuse 10/08/2023 Patient is on [...] Vu Guido PharmD [facility] is available daily [phone] via Y-Klub. If no response on Exaptive Chat then please page [phone]. [facility] Respiratory Care Department Progress Note As [...] Respiratory in the care of this patient, [facility] Progress Note Mr. Jun Snyder is [...] status and labs. Please message me through Little Black Bag chat with any questions or concerns. Wellington Nicole MD 01/27/2025 7:11 AM [facility] [address] [place] [address], [address] [place] [address] Office: [phone] ICU Progress Note Name: Jun Snyder : 1965(59 y.o.) Date: 01/27/25 Team: MICU Attending: DARRYN HIGGINS Subjective: Hospital Summary: Jun Snyder is a 59 y.o. male who who presented to [facility] 01/19 after inadvertent removal of his tracheostomy. He was transferred to [facility] ICU for surgical evaluation. On [...] kg/m . I/O: 01/26 0700 - 01/27 659 In: 861 [P.O.:200; I.V.:661] [...] Normal [] Scar/Lesion/Mass Inspection of teeth/lips/gums Dentition: [x][place] Teeth []Dentures Lips/Gums: [x]Intact []Lesion Present Mucosa: [x][place] []Moist []Dry Neck: External Appearance Overall Appearance: [...] last 24 hours- BMP: Recent Labs 01/25/25 02501/26/25 0248 01/27/25 0006 NA 138 136 139 [...] displayed. ABGs: No results for input(s): "PHART", "SGV6PZP", "PO2ART", "YZB4HDO", "SO2ART", "L7BJJGRQ" in the last 72 hours. Lactic Acid: [...] Problem: Complication of tracheostomy (CMS/HCC) ([facility]) Active Problems: Severe malnutrition (CMS/HCC) ([facility]) BRBPR (bright red blood per rectum) GIB [...] H/H and PT/INR q12 - Diet per CREDIT CONTROL CLERK recs Appreciate Recs: Pureed solids and Thin [...] and warfarin Disposition: Stable for Transfer to [facility] Cosigned by Darryn Higgins MD [...] PT/OT - Remains stable for transfer to [facility]. Code Status: Full Code Disposition: ok for [facility] Time spent preparing to see the patient, obtaining/reviewing separately obtained history, completing an appropriate medical examination of the patient, ordering medications/tests/procedures, documenting clinical information on the EMR, and/or coordinating care is a subsequent visit: 35 minutes (Level II). Darryn Higgins MD Pulmonary and Critical Care Medicine Attending Pager #[phone] Images from the original note were not included. PHYSICAL THERAPY [facility] Name/MRN: Jair Snyder ([id number]) Date: 01/26/2025 Attempt Note Pt on iHD. Will re-attempt as able. Chantal Rossi PT [facility] Progress Note Mr. Jun Snyder is [...] last 7 days Lab Units 01/26/25 0952 01/26/2524701/25/25 1948 01/25/25 0953 01/25/2525001/24/25 1217 01/24/25 0610 [...] Nicole MD 01/26/2025 1:55 PM [facility] [address] [place] [address], [address] [place] [id number] Office: [phone] Speech-Language Pathology Pt is a hold at this time, as he is receiving dialysis. Will re-attempt next date as schedule permits. Treva Mccallum MS. JESUS-CREDIT CONTROL CLERK ICU Transfer Checklist Hospital course: 59 y.o. male H trach s/p removal, peg, HTN, afib, ESRD on TTS HD, aortic stenosis s/p mechanical valve who presented to [facility] 01/19 after inadvertent removal of his tracheostomy. Transferred to [facility] ICU for surgical evaluation. On [...] convert to PO if able) None Anticipated [place] Medications (ICU initiated) or Dose Changes and Indication No Permanently Discontinued Home Medications and Reason for medication contraindication No Payne Catheter (please remove if able. Note: place DC order) No Central Line (please remove if able. Note: place DC order) No Transfer Discussed with: Dr. Russell, [facility] If additional questions for ICU team within 24 hours of ICU transfer, page finish production manager ICU resident for clarifications. [facility] Anticoagulation Management Service ([facility]) Inpatient Warfarin Consult HPI: Jun Snyder is a 59 y.o. male admitted on 01/19/2025 for Complication of tracheostomy ([facility]) ([facility]) [J95.00] Past Medical History: Diagnosis Date Acute renal failure (ARF) ([facility]) 10/19/2019 Anemia 12/30/2021 Calcification of abdominal aorta ([facility]) 10/08/202309/[address] abd Diverticulosis 10/08/2023 ESRD on hemodialysis ([facility]) ([facility]) 10/26/2019 Hemodialysis patient ([facility]) ([facility]) HTN (hypertension) 12/01/2022 Hypertension IgA nephropathy IgA [...] facility, has yet to be seen by [facility]. Pt's home dose of warfarin is [...] dose accordingly 3. Will facilitate f/u at [facility] upon discharge Adalberto Deleon PharmD [facility] is available daily [phone] via Y-Klub. If no response on Exaptive Chat then please page [phone]. Images from the original note were not included. [facility] - Infectious Diseases Attending [...] Date/Time NA 136 01/26/2025 0248 K 5.1 01/26/2025247 [...] from the original note were not included. [facility] Wound Care Progress Note Jun Snyder [...] diverticulosis, IgA nephropathy, severe that presented to [facility] ED from a facility due to trach dislodgement. Wound Care consulted for Pressure Injury sacrum and Ischemic ulcers to left toes" Patient resting in [place] with floor RN present at bedside. Wound vac changed at time of visit with patient tolerating well. Denies any needs. PAST MEDICAL HISTORY Past Medical History: Diagnosis Date Acute renal failure (ARF) ([facility]) 10/19/2019 Anemia 12/30/2021 Calcification of abdominal aorta ([facility]) 10/08/202309/[address] abd Diverticulosis 10/08/2023 ESRD on hemodialysis ([facility]) ([facility]) 10/26/2019 Hemodialysis patient ([facility]) ([facility]) HTN (hypertension) 12/01/2022 Hypertension IgA nephropathy IgA nephropathy determined by biopsy of kidney 10/26/2019 Missed vaccination due to patient refusal 10/08/2023 Has a number of non-scientific based beliefs which interfere with his understanding and acceptance of the medical benefit of vaccination. Nonrheumatic aortic valve stenosis 10/08/2023 Paroxysmal A-fib ([facility]) ([facility]) 08/18/2023 Tobacco abuse 10/08/2023 PAST SURGICAL HISTORY Past Surgical History: Procedure Laterality Date APPENDECTOMY CARDIAC CATHETERIZATION N/A 10/09/2024 Performed by Bob Watson MD at [facility] Cardiac Cath/EP Lab CARDIAC CATHETERIZATION Bilateral 11/01/2024 Performed by Bob Watson MD at [facility] Cardiac Cath/EP Lab CARDIAC CATHETERIZATION N/A 11/01/2024 Performed by Bob Watson MD at [facility] Cardiac Cath/EP Lab COLONOSCOPY N/A 01/24/2025 Performed by Chadd Davis MD at [facility] ENDOSCOPY FISTULAGRAM (HISTORICAL) Left 09/15/2021 LEFT UPPER ARM HX AV FISTULA CREATION IR EMBOLIZATION 10/14/2024 IR EMBOLIZATION 10/14/2024 [facility] SPECIAL PROCEDURES IR FISTULAGRAM 08/07/2022 IR FISTULAGRAM 08/07/2022 [facility] IR IMAGING TONSILLECTOMY (HISTORICAL) FAMILY HISTORY Family [...] Medication Sig Dispense Refill epoetin rowan-epbx (Retacrit) 43492 UNIT/ML injection Inject 0.79 mL (7,900 Units) [...] to follow Recommend to follow up at [facility] Outpatient wound care center after hospital discharge. Any questions or concerns please secure chat "[facility] wound/ostomy". Thank you for the [...] 59 y.o. male who who presented to [facility] 01/19 after inadvertent removal of his tracheostomy. He was transferred to [facility] ICU for surgical evaluation. On [...] Normal [] Scar/Lesion/Mass Inspection of teeth/lips/gums Dentition: [x][place] Teeth []Dentures Lips/Gums: [x]Intact []Lesion Present Mucosa: [x][place] []Moist []Dry Neck: External Appearance Overall Appearance: [...] Recent Labs 01/24/25 0610 01/24/25 1217 01/25/25 02501/25/25 0953 01/25/25 1302 01/25/25 1948 01/26/25 0248 [...] displayed. ABGs: No results for input(s): "PHART", "ZGQ6JKJ", "PO2ART", "CKG3QHZ", "SO2ART", "E3HZFYIA" in the last 72 hours. Lactic Acid: [...] Problem: Complication of tracheostomy (CMS/HCC) ([facility]) Active Problems: Severe malnutrition (CMS/HCC) (HCC) BRBPR [...] peripheral blood smear pending - Diet per CREDIT CONTROL CLERK recs - continue q12 H/H and PT/INR [...] on heparin and warfarin Disposition: Transfer to [facility] Cosigned by Darryn Higgins MD [...] hemoglobin stable today. Stable for transfer to [facility]. Code Status: Full Code Disposition: Transfer to [facility] Time spent preparing to see the patient, obtaining/reviewing separately obtained history, completing an appropriate medical examination of the patient, ordering medications/tests/procedures, documenting clinical information on the EMR, and/or coordinating care is a subsequent visit: 35 minutes (Level II). Darryn Higgins MD Pulmonary and Critical Care Medicine Attending Pager #[phone] Images from the original note were not included. [facility] - Infectious Diseases Attending [...] CO2 24 01/25/2025 0251 BUN 15 01/25/2025 0251 CREATININE 2.54 (H) 01/25/2025 025 CREATININE 9.99 [...] stenosis s/p mechanical valve who presented to [facility] 01/19 after inadvertent removal of his tracheostomy. Transferred to [facility] ICU for surgical evaluation. On [...] convert to PO if able) None Anticipated [place] Medications (ICU initiated) or Dose Changes and Indication No Permanently Discontinued Home Medications and Reason for medication contraindication No Payne Catheter (please remove if able. Note: place DC order) No Central Line (please remove if able. Note: place DC order) No Transfer Discussed with: Dr. Russell [facility] If additional questions for ICU team within 24 hours of ICU transfer, page finish production manager ICU resident for clarifications. Images from the original note were not included. Speech-Language Pathology SPEECH LANGUAGE PATHOLOGY [facility] Modified Barium Swallow Study Patient Name: Jun [...] swallow). Pt would benefit from skilled acute CREDIT CONTROL CLERK services to ensure diet tolerance, train swallow [...] Date Acute renal failure (ARF) ([facility]) 10/19/2019 Anemia 12/30/2021 Calcification of abdominal aorta ([facility]) 10/08/202309/[address] abd Diverticulosis 10/08/2023 ESRD on hemodialysis ([facility]) ([facility]) 10/26/2019 Hemodialysis patient ([facility]) ([facility]) HTN (hypertension) 12/01/2022 Hypertension IgA nephropathy IgA nephropathy determined by biopsy of kidney 10/26/2019 Missed vaccination due to patient refusal 10/08/2023 Has a number of non-scientific based beliefs which interfere with his understanding and acceptance of the medical benefit of vaccination. Nonrheumatic aortic valve stenosis 10/08/2023 Paroxysmal A-fib ([facility]) ([facility]) 08/18/2023 Tobacco abuse 10/08/2023 Past Surgical History: Past Surgical History: Procedure Laterality Date APPENDECTOMY CARDIAC CATHETERIZATION N/A 10/09/2024 Performed by Bob Watson MD at [facility] Cardiac Cath/EP Lab CARDIAC CATHETERIZATION Bilateral 11/01/2024 Performed by Bob Watson MD at [facility] Cardiac Cath/EP Lab CARDIAC CATHETERIZATION N/A 11/01/2024 Performed by Bob Watson MD at [facility] Cardiac Cath/EP Lab COLONOSCOPY N/A 01/24/2025 Performed by Chadd Davis MD at [facility] ENDOSCOPY FISTULAGRAM (HISTORICAL) Left 09/15/2021 LEFT UPPER ARM HX AV FISTULA CREATION IR EMBOLIZATION 10/14/2024 IR EMBOLIZATION 10/14/2024 [facility] SPECIAL PROCEDURES IR FISTULAGRAM 08/07/2022 IR FISTULAGRAM 08/07/2022 [facility] IR IMAGING TONSILLECTOMY (HISTORICAL) Admission Diagnosis: Patient Active Problem List Diagnosis Date Noted Severe malnutrition (CMS/HCC) ([facility]) 01/19/2025 Complication of tracheostomy (CMS/HCC) ([facility]) 01/19/2025 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 01/12/2025 Acute respiratory failure with hypoxia ([facility]) [J96.01] 01/08/2025 Tracheostomy care ([facility]) [Z43.0] 01/08/2025 Pulmonary embolism ([facility]) 01/08/2025 Sacral osteomyelitis (CMS/HCC) ([facility]) 01/03/2025 Pneumonia of both lungs due to methicillin susceptible Staphylococcus aureus (MSSA) ([facility]) 01/01/2025 Leukocytosis 12/30/2024 Decubitus ulcer of sacral region, unstageable ([facility]) 12/30/2024 Peritonitis due to fungus ([facility]) 11/30/2024 History of abdominal surgery 11/30/2024 Leg DVT (deep venous thromboembolism), acute, left ([facility]) 11/30/2024 Ischemic ulcer of toe of left foot, limited to breakdown of skin ([facility]) 11/30/2024 Tracheostomy dependence ([facility]) 11/30/2024 Pleural effusion 11/28/2024 Gastric ulceration 2024 Atrial flutter, unspecified type ([facility]) 10/03/2024 RSV (acute bronchiolitis due to respiratory syncytial virus) 10/03/2024 Diverticulosis 10/08/2023 Nonrheumatic aortic valve stenosis 10/08/2023 Calcification of abdominal aorta (HCC) 10/08/2023 Missed vaccination due to patient refusal 10/08/2023 Tobacco abuse 10/08/2023 Alcohol use disorder in remission 10/08/2023 Paroxysmal A-fib ([facility]) ([facility]) 08/18/2023 HTN (hypertension) 12/01/2022 ESRD on hemodialysis ([facility]) ([facility]) 10/26/2019 IgA nephropathy determined by biopsy of kidney 10/26/2019 BRBPR (bright red blood per rectum) 01/19/2025 Aortic stenosis 10/03/2024 Upper GI bleed 10/03/2024 S/P AVR 10/03/2024 Acute hypoxic respiratory failure ([facility]) 10/03/2024 Acute encephalopathy 10/03/2024 Pneumoperitoneum 10/03/2024 Anemia 12/30/2021 Pain: Pt denies any current pain. Reason for current admission: Patient is a 59 yo male with a PMH of Trach and peg, HTN, paroxysmal a-fib, R occipital ICH, Tobacco abuse, ARF - dialysis (TTS; LUE AVF), diverticulosis, IgA nephropathy, severe that presented to [facility] ED from a facility due to trach dislodgement. Per patient, was trying to disconnect his vent to transfer to another room but accidentally pulled out his tracheostomy. This event happened approximately 45 minutes before ED arrival. ED attempted to place tracheostomy tube back but were unsuccessful. Decision was made to transfer patient to [facility] ICU for further airway management [...] Expected End: 02/02/25 Resolved: 01/25/25 Therapy Time CREDIT CONTROL CLERK Individual Minutes Time In: 1145 Time Out: 1205 Minutes: 20 Christina Nunez MA, CCC/CREDIT CONTROL CLERK [facility] Anticoagulation Management Service (SAILAJA) Inpatient Warfarin Consult HPI: Jun Snyder is a 59 y.o. male admitted on 01/19/2025 for Complication of tracheostomy ([facility]) ([facility]) [J95.00] Past Medical History: Diagnosis Date Acute renal failure (ARF) ([facility]) 10/19/2019 Anemia 12/30/2021 Calcification of abdominal aorta ([facility]) 10/08/202309/[address] abd Diverticulosis 10/08/2023 ESRD on hemodialysis ([facility]) ([facility]) 10/26/2019 Hemodialysis patient ([facility]) ([facility]) HTN (hypertension) 12/01/2022 Hypertension IgA nephropathy IgA [...] dose accordingly 3. Will facilitate f/u at [facility] upon discharge Adalberto Deleon PharmD, PharmD SAILAJA is available daily [phone] via Y-Klub. If no response on Exaptive Chat then please page [phone]. [facility] Progress Note Mr. Jun Snyder is [...] status and labs. Please message me through Little Black Bag chat with any questions or concerns. Wellington Nicole MD 01/25/2025 11:44 AM [facility] [address] [place] [address], [address] [place] [id number] Office: [phone] Images from the original note were not included. Palliative Care Progress note Chief Complaint: Jun Snyedr is a 59 y.o. male with chief [...] time - planning to eventually discharge to [facility] - will forward chart to [...] AV replacement Supratherapeutic INR - [facility] [employer] Maker valve in 09/2024 - coumadin held due to bleeding and supratherapeutic levels Chronic respiratory failure s/p tracheostomy Tracheostomy dislodgement - has been saturating well without trach on RA so has not been replaced Palliative Care Encounter - Code Status: Full Code - Jun Snyder has been seen in consultation by [facility] Palliative Care during their admission to [facility]. They currently have no uncontrolled symptoms and [...] Palliative Care IDT members involved: Palliative Care Plaster Model And Mold Maker Discussed the plan of care with [...] placement -- noted to have bile peritonitis" 3/4/25: transferred to [facility] He ended up developing sacral ulcer and osteomyelitis at [facility]. He then ended up dislodging his tracheostomy, and was brought to [facility] ED for further care. Palliative [...] much better. Planning to eventually discharge to [facility]. Discussed trying to get palliative care [...] child(rocky) Living status: SNF Work history: unknown [place] status: unknown Confucianist annette: Non-Hinduism ROS: See palliative care ROS/ESAS below; All other systems were reviewed and are negative. Kinder Symptom Assessment Score Kinder Score Pain Score (if non-verbal, add .FLACC [...] 59 y.o. male who who presented to [facility] 01/19 after inadvertent removal of his tracheostomy. He was transferred to [facility] ICU for surgical evaluation. On [...] 16 (01/25/25 041) SpO2 97 % (01/25/25 0413) Weight 58.9 [...] Normal [] Scar/Lesion/Mass Inspection of teeth/lips/gums Dentition: [x][place] Teeth []Dentures Lips/Gums: [x]Intact []Lesion Present Mucosa: [x][place] []Moist []Dry Neck: External Appearance Overall Appearance: [...] 19.2* ABGs: No results for input(s): "PHART", "IGP7TNR", "PO2ART", "VHV0XWA", "SO2ART", "X9AQJTHB" in the last 72 hours. Lactic Acid: [...] Problem: Complication of tracheostomy (CMS/HCC) ([facility]) Active Problems: Severe malnutrition (CMS/HCC) ([facility]) BRBPR (bright red blood per rectum) GIB [...] peripheral blood smear pending - Diet per CREDIT CONTROL CLERK recs - continue q12 H/H and PT/INR [...] apply Betadine and allow to dry, leave LIVESTOCK HAULIER daily and PRN - PVRs for circulation [...] Prophylaxis: SCDs warfarin held Disposition: Transfer to [facility] Cosigned by Darryn Higgins MD [...] and appropriate. If stable can transfer to [facility]. Code Status: Full Code Disposition: Transfer to [facility] Time spent preparing to see the patient, obtaining/reviewing separately obtained history, completing an appropriate medical examination of the patient, ordering medications/tests/procedures, documenting clinical information on the EMR, and/or coordinating care is a subsequent visit: 35 minutes (Level II). Darryn Higgins MD Pulmonary and Critical Care Medicine Attending Pager #[phone] Images from the original note were not included. [facility] - Infectious Diseases Advanced [...] 12/11- sputum cx- MSSA, resp ila Previous ([facility]) 11/28- L pleural fluid- negative [...] of moderate complexity. Mikala MORAN PA-C [facility] Infectious Disease [facility] Progress Note Mr. Jun Snyder is [...] from last 7 days Lab Units 01/24/25 12101/23/25 04301/22/25418 SODIUM mmol/L 138 < > 132* POTASSIUM [...] Units 01/24/25 1217 01/24/25 0610 01/23/25 1514 01/23/25429 WBC AUTO 10*3/uL -- 11.5* 10.9* 11.1* [...] concerns. Wellington Nicole MD 01/24/2025 3:17 PM [facility] [address] [place] [address], [address] [place] [id number] Office: [phone] Nutrition Assessment Type and Reason for Visit: [...] receiving and tolerating while at [facility]. Noted CREDIT CONTROL CLERK is following- trach remains out and pt stable without it. CREDIT CONTROL CLERK most recently recommended MBSS completion- will follow and monitor CREDIT CONTROL CLERK recs and need for adjustment in EN [...] the ICU after he initially presented to [facility] ED on 01/19/25 due to inadvertent removal of his tracheostomy, pt was transferred to [facility] ICU for surgical evaluation, on [...] and also left toes 1-4 arterial ulcers, CREDIT CONTROL CLERK remains following- yesterday noted recs to continue [...] able to be re-initiated as well as CREDIT CONTROL CLERK recs for possible diet advancement s/p MBSS. [...] bedscale, 10/31: 200#, 11/28: 161#, 01/18: 142#) [place] Body Weight (lbs) (Calculated): 166 lbs [place] Body Weight (Kg) (Calculated): 75 kg % [place] Body Weight (Calculated): 78.2 % BMI (kg/m2) [...] determine [address] Contact: available via Little Black Bag chat or *[phone] [facility] Anticoagulation Management Service ([facility]ILAJA) Inpatient Warfarin Consult HPI: Jun Snyder is a 59 y.o. male admitted on 01/19/2025 for Complication of tracheostomy (CMS/HCC) (HCC) [J95.00] Past Medical History: Diagnosis Date Acute renal failure (ARF) ([facility]) 10/19/2019 Anemia 12/30/2021 Calcification of abdominal aorta ([facility]) 10/08/202309/[address] abd Diverticulosis 10/08/2023 ESRD on hemodialysis ([facility]) ([facility]) 10/26/2019 Hemodialysis patient ([facility]) ([facility]) HTN (hypertension) 12/01/2022 Hypertension IgA nephropathy IgA nephropathy determined by biopsy of kidney 10/26/2019 Missed vaccination due to patient refusal 10/08/2023 Has a number of non-scientific based beliefs which interfere with his understanding and acceptance of the medical benefit of vaccination. Nonrheumatic aortic valve stenosis 10/08/2023 Paroxysmal A-fib ([facility]) ([facility]) 08/18/2023 Tobacco abuse 10/08/2023 Patient is on warfarin for Afib, mechanical AVR and has a goal INR 2.0 - 3.0. Warfarin is currently managed by facility, has yet to be seen by [facility]. Pt's home dose of warfarin is [...] dose accordingly 3. Will facilitate f/u at [facility] upon discharge Fatuma Odonnell RP, PharmD SAILAJA is available daily [phone] via Y-Klub. If no response on Exaptive Chat then please page [phone]. ICU Progress Note Name: Jun Snyder : 1965(59 y.o.) Date: 01/24/25 Team: MICU Attending: Dr. Higgins Subjective: Hospital Summary: Mr Snyder is a 59 year old male who presented to [facility] 01/19 after inadvertent removal of his tracheostomy. He was transferred to [facility] ICU for surgical evaluation. On [...] kg/m . I/O: 01/23 07 - 01/24 659 In: 4496 [I.V.:410] Out: [...] Normal [] Scar/Lesion/Mass Inspection of teeth/lips/gums Dentition: [][place] Teeth []Dentures Lips/Gums: []Intact []Lesion Present Mucosa: [x][place] []Moist [x]Dry Neck: External Appearance Overall Appearance: [...] 19.4* ABGs: No results for input(s): "PHART", "WBD3XJT", "PO2ART", "HAS5HHU", "SO2ART", "F9DLPEBT" in the last 72 hours. Lactic Acid: [...] clean toes w NS, apply betadine, leave LIVESTOCK HAULIER - PVRs for circulation check - rec [...] post scope if stable can transfer to [facility] tomorrow Code Status: Full Code Disposition: Remain in ICU Time spent preparing to see the patient, obtaining/reviewing separately obtained history, completing an appropriate medical examination of the patient, ordering medications/tests/procedures, documenting clinical information on the EMR, and/or coordinating care is a subsequent visit: 35 minutes (Level II). Darryn Higgins MD Pulmonary and Critical Care Medicine Attending Pager #[phone] [facility] Progress Note Mr. Jun Snyder is [...] Patient with known ESRD on a Wednesday/Wednesday/Wednesday (MW) hemodialysis schedule. Hemodialysis completed yesterday without complications. [...] concerns. Wellington Nicole MD 01/23/2025 5:03 PM [facility] [address], [address] [place] [address] Office: [phone] Images from the original note were not included. Speech-Language Pathology SPEECH LANGUAGE PATHOLOGY [facility] Dysphagia Treatment Note Patient Name: Jun Snyder Evaluation Date: 01/23/2025 Date of : 1965 Admission Date: 01/19/2025 2:13 AM Age: 59 y.o. [id number] A Subjective Patient alert and cooperative. [...] Start: 01/19/25 Expected End: 02/02/25 Therapy Time CREDIT CONTROL CLERK Individual Minutes Time In: 1315 Time Out: 1330 Minutes: 15 FRANKLIN Singh Images from the original note were not included. [facility] - Infectious Diseases Advanced [...] Behavior normal. Labs: Recent Labs 01/21/25 0243 01/22/259 01/23/25 0430 NA 135* 132* 140 K [...] of moderate complexity. 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 I have reviewed and agree with the care plan as documented above by my CONTINUOUS MINER OPERATOR HELPER/PAJef. I personally discussed the review of systems [...] []SW/TCC []Other Total Care Time (combined between CONTINUOUS MINER OPERATOR HELPER/PA-C and myself) throughout the day today was >= 35 minutes (including chart/data review/analysis, care coordination, and [id number] encounter), and was spent discussing/counseling the patient/family regarding the care plan for this patient. I examined the patient independently. I reviewed relevant data myself and may have also done so in the context of team rounds. A full chart review was performed. Ivett Buckley MD Division of Trauma Department of Surgery [facility] Images from the original note [...] sodium chloride 0.9 % 100 mL IVPB (Add-[place]), 3,000 mg, IntraVENous, q12h, Steve Lassiter MD, [...] mL/kg) [I.V.:1484 (25.2 mL/kg); Blood:216; NG/GT:717] Out: 2094 (35.6 mL/kg) [Stool:40] Weight: 58.9 kg Constitutional: [...] 10/12/24, Coumadin, last dose suspected 01/18/25 at [facility] Stage V sacral wound Necrotic [...] 59 year old male who presented to [facility] 01/19 after inadvertent removal of his tracheostomy. He was transferred to [facility] ICU for surgical evaluation. On [...] Normal [] Scar/Lesion/Mass Inspection of teeth/lips/gums Dentition: [][place] Teeth []Dentures Lips/Gums: []Intact []Lesion Present Mucosa: [][place] []Moist []Dry Neck: External Appearance Overall Appearance: [...] last 72 hours. CBC: Recent Labs 01/22/25 04101/22/25 1539 01/23/25 0430 WBC 10.6 10.6 11.1* HGB 8.0* 7.4* 7.3* HCT 25.1* 23.9* 23.4* PLT 330 292 345 MCV 86.9 88.8 88.6 RDW 18.6* 18.4* 18.5* ABGs: No results for input(s): "PHART", "GOI9FST", "PO2ART", "MRV3EUE", "SO2ART", "H0OLLTVP" in the last 72 hours. Lactic Acid: [...] and Plan: Principal Problem: Complication of tracheostomy (CMS/[facility]) ([facility]) Active Problems: Severe malnutrition (CMS/HCC) ([facility]) GI Bleed, worsened by Warfarin Non-bleeding duodenal [...] setting of GI bleed Disposition: Transfer to [facility] Cosigned by Darryn Higgins MD [...] Pulmonary and Critical Care Medicine Attending Pager #[phone] [facility] Respiratory Care Department Progress Note As part [...] Respiratory in the care of this patient, [facility] Progress Note Mr. Jun Snyder is [...] status and labs. Please message me through Little Black Bag chat with any questions or concerns. Wellington Nicole MD 01/22/2025 3:30 PM [facility] [address] [place] [address], [address] [place] [address] Office: [phone] Images from the original note were not included. [facility] - Infectious Diseases Advanced [...] 4.4 CL 98 96* 94* CO2 22 25 BUN 91* 46* 53* CREATININE 4.31* [...] wound debrided to bone on 01/02 at [facility] (Cx with E faecalis and Clostridium). Sacral [...] of moderate complexity. Mikala MORAN PA-C [facility] Infectious Disease Speech-Language Pathology Spoke with the RN. Patient remains decanulated and doing well on Room Air. Patient is currently NPO for GI. Will defer dysphagia plan of care until patient is cleared to resume TF or a PO diet. Christina Limon MS, CCC/CREDIT CONTROL CLERK Images from the original note were not [...] sodium chloride 0.9 % 100 mL IVPB (Add-[place]), 3,000 mg, IntraVENous, q12h, Steve Lassiter MD, [...] Steve Lassiter MD, 5 mg at 01/21/25 7068 prochlorperazine (Compazine) injection 5 mg, 5 mg, [...] 01/22/25418 WBC 10.1 9.2 -- -- 10.6 RBC [...] 10/12/24, Coumadin, last dose suspected 01/18/25 at [facility] Stage V sacral wound Necrotic [...] Diagnosis Anemia Paroxysmal A-fib ([facility]) ([facility]) HTN (hypertension) ESRD on hemodialysis ([facility]) ([facility]) IgA nephropathy determined by biopsy of kidney Diverticulosis Nonrheumatic aortic valve stenosis Calcification of abdominal aorta ([facility]) Missed vaccination due to patient refusal Tobacco abuse Alcohol use disorder in remission Atrial flutter, unspecified type ([facility]) RSV (acute bronchiolitis due to respiratory syncytial virus) Aortic stenosis Upper GI bleed S/P AVR Acute hypoxic respiratory failure ([facility]) Acute encephalopathy Pneumoperitoneum Gastric ulceration Severe malnutrition ([facility]/HCC) ([facility]) Pleural effusion Peritonitis due to fungus ([facility]) History of abdominal surgery Leg DVT (deep venous thromboembolism), acute, left ([facility]) Ischemic ulcer of toe of left foot, limited to breakdown of skin ([facility]) Tracheostomy dependence ([facility]) Leukocytosis Decubitus ulcer of sacral region, unstageable ([facility]) Pneumonia of both lungs due to methicillin susceptible Staphylococcus aureus (MSSA) ([facility]) Sacral osteomyelitis ([facility]/HCC) ([facility]) Acute respiratory failure with hypoxia ([facility]) [J96.01] Tracheostomy care ([facility]) [Z43.0] Pulmonary embolism ([facility]) MCFP (current) use of antibiotics Complication of tracheostomy ([facility]) ([facility]) I personally supervised the resident in the [...] Division of Trauma Department of Surgery [facility] ICU Progress Note Name: Jun Snyder : 1965(59 y.o.) Date: 01/22/25 Team: MICU Attending: Dr. Higgins Subjective: Hospital Summary: Mr Snyder is a 59 year old male who presented to [facility] 01/19 after inadvertent removal of his tracheostomy. He was transferred to [facility] ICU for surgical evaluation. On [...] Normal [] Scar/Lesion/Mass Inspection of teeth/lips/gums Dentition: [][place] Teeth []Dentures Lips/Gums: []Intact []Lesion Present Mucosa: [x][place] []Moist [x][place]ry [place]ck: External Appearance Overall Appearance: [...] 18.6* ABGs: No results for input(s): "PHART", "DFL5GCK", "PO2ART", "UIO9SSG", "SO2ART", "T1SNLUXK" in the last 72 hours. Lactic Acid: [...] Pulmonary and Critical Care Medicine Attending Pager #[phone] [facility] Progress Note SUBJECTIVE: Jun Snyder [...] sodium chloride 0.9 % 100 mL IVPB (Add-[place]), 3,000 mg, IntraVENous, q12h, Steve Lassiter MD, [...] List Diagnosis Date Noted Severe malnutrition (CMS/HCC) ([facility]) 01/19/2025 Complication of tracheostomy (CMS/HCC) ([facility]) 01/19/2025 MCFP (current) use of antibiotics 01/12/2025 Acute respiratory failure with hypoxia ([facility]) [J96.01] 01/08/2025 Tracheostomy care ([facility]) [Z43.0] 01/08/2025 Pulmonary embolism ([facility]) 01/08/2025 Sacral osteomyelitis ([facility]) (HCC) 01/03/2025 Pneumonia of both lungs due to methicillin susceptible Staphylococcus aureus (MSSA) ([facility]) 01/01/2025 Leukocytosis 12/30/2024 Decubitus ulcer of sacral region, unstageable ([facility]) 12/30/2024 Peritonitis due to fungus ([facility]) 11/30/2024 History of abdominal surgery 11/30/2024 Leg DVT (deep venous thromboembolism), acute, left ([facility]) 11/30/2024 Ischemic ulcer of toe of left foot, limited to breakdown of skin ([facility]) 11/30/2024 Tracheostomy dependence ([facility]) 11/30/2024 Pleural effusion 11/28/2024 Gastric ulceration 2024 Atrial flutter, unspecified type ([facility]) 10/03/2024 RSV (acute bronchiolitis due to respiratory syncytial virus) 10/03/2024 Diverticulosis 10/08/2023 Nonrheumatic aortic valve stenosis 10/08/2023 Calcification of abdominal aorta ([facility]) 10/08/2023 Missed vaccination due to patient refusal 10/08/2023 Tobacco abuse 10/08/2023 Alcohol use disorder in remission 10/08/2023 Paroxysmal A-fib ([facility]) ([facility]) 08/18/2023 HTN (hypertension) 12/01/2022 ESRD on hemodialysis ([facility]) ([facility]) 10/26/2019 IgA nephropathy determined by biopsy of kidney 10/26/2019 Aortic stenosis 10/03/2024 Upper GI bleed 10/03/2024 S/P AVR 10/03/2024 Acute hypoxic respiratory failure ([facility]) 10/03/2024 Acute encephalopathy 10/03/2024 Pneumoperitoneum 10/03/2024 Anemia 12/30/2021 ASSESSMENT/PLAN: ESRD. HD MWF schedule Anemia. PRBC if Hb less than 7 GI bleed. Gastroenterology following Cindy Patel MD 01/21/2025 4:54 PM Family Communication Number Called: [phone] Name of Designated Family Entrance Guard: Omar son I spoke with the individual listed above Family Entrance Guard Updated on the Following: - Updated Omar [...] sodium chloride 0.9 % 100 mL IVPB (Add-[place]), 3,000 mg, IntraVENous, q12h, Steve Lassiter MD, [...] solution 3 mL, 3 mL, Nebulization, q8h, Steev Lassiter MD, 3 mL at 01/20/25 2333 [...] 15 mg, Per G Tube, q6h, Steve Lassietr MD, 15 mg at 01/21/25 0234 mupirocin [...] 10/12/24, Coumadin, last dose suspected 01/18/25 at [facility] Acute Right occipital ICH- 10/22/24 [...] proceed with planned procedure. Parth VASQUEZ Gastroenterology [facility] Progress Note SUBJECTIVE: Jun Snyder [...] sodium chloride 0.9 % 100 mL IVPB (Add-[place]), 3,000 mg, IntraVENous, q12h, Steve Lassiter MD, [...] Date Noted Severe malnutrition ([facility]) ([facility]) 01/19/2025 Complication of tracheostomy ([facility]) ([facility]) 01/19/2025 MCFP (current) use of antibiotics 01/12/2025 Acute respiratory failure with hypoxia ([facility]) [J96.01] 01/08/2025 Tracheostomy care ([facility]) [Z43.0] 01/08/2025 Pulmonary embolism ([facility]) 01/08/2025 Sacral osteomyelitis ([facility]) ([facility]) 01/03/2025 Pneumonia of both lungs due to methicillin susceptible Staphylococcus aureus (MSSA) ([facility]) 01/01/2025 Leukocytosis 12/30/2024 Decubitus ulcer of sacral region, unstageable ([facility]) 12/30/2024 Peritonitis due to fungus ([facility]) 11/30/2024 History of abdominal surgery 11/30/2024 Leg DVT (deep venous thromboembolism), acute, left ([facility]) 11/30/2024 Ischemic ulcer of toe of left foot, limited to breakdown of skin ([facility]) 11/30/2024 Tracheostomy dependence ([facility]) 11/30/2024 Pleural effusion 11/28/2024 Gastric ulceration 2024 Atrial flutter, unspecified type ([facility]) 10/03/2024 RSV (acute bronchiolitis due to respiratory syncytial virus) 10/03/2024 Diverticulosis 10/08/2023 Nonrheumatic aortic valve stenosis 10/08/2023 Calcification of abdominal aorta ([facility]) 10/08/2023 Missed vaccination due to patient refusal 10/08/2023 Tobacco abuse 10/08/2023 Alcohol use disorder in remission 10/08/2023 Paroxysmal A-fib ([facility]) ([facility]) 08/18/2023 HTN (hypertension) 12/01/2022 ESRD on hemodialysis ([facility]) ([facility]) 10/26/2019 IgA nephropathy determined by biopsy of kidney 10/26/2019 Aortic stenosis 10/03/2024 Upper GI bleed 10/03/2024 S/P AVR 10/03/2024 Acute hypoxic respiratory failure ([facility]) 10/03/2024 Acute encephalopathy 10/03/2024 Pneumoperitoneum 10/03/2024 Anemia 12/30/2021 ASSESSMENT/PLAN: ESRD. HD MWF schedule. HD today. See orders Anemia. PRBC if Hb less than 7 Later in the day dialysis had to be discontinued a little early due to GI bleed and other events. Will reassess tomorrow Cindy Patel MD 01/20/2025 5:52 PM Images from the original note were not included. OCCUPATIONAL THERAPY [facility] Initial Evaluation Name/MRN: Jair Snyder ([id number]) Evaluation Date: 01/20/2025 Date of : 1965 Admission Date: 01/19/2025 2:13 AM Age: 59 y.o. [facility] A Discharge Recommendation: Nursing Home Facility Other: DME TBD Assessment IMPRESSION: Pt [...] planned discharge. Admitting Diagnosis: Complication of tracheostomy ([facility]) ([facility]) Performance Deficits /Impairments: Decreased Functional Mobility, Decreased [...] Date Acute renal failure (ARF) ([facility]) 10/19/2019 Anemia 12/30/2021 Calcification of abdominal aorta ([facility]) 10/08/202309/[address] abd Diverticulosis 10/08/2023 ESRD on hemodialysis ([facility]) ([facility]) 10/26/2019 Hemodialysis patient ([facility]) ([facility]) HTN (hypertension) 12/01/2022 Hypertension IgA nephropathy IgA nephropathy determined by biopsy of kidney 10/26/2019 Missed vaccination due to patient refusal 10/08/2023 Has a number of non-scientific based beliefs which interfere with his understanding and acceptance of the medical benefit of vaccination. Nonrheumatic aortic valve stenosis 10/08/2023 Paroxysmal A-fib ([facility]) ([facility]) 08/18/2023 Tobacco abuse 10/08/2023 Past Surgical History: Past Surgical History: Procedure Laterality Date APPENDECTOMY CARDIAC CATHETERIZATION N/A 10/09/2024 Performed by Bob Watson MD at [facility] Cardiac Cath/EP Lab CARDIAC CATHETERIZATION Bilateral 11/01/2024 Performed by Bob Watson MD at [facility] Cardiac Cath/EP Lab CARDIAC CATHETERIZATION N/A 11/01/2024 Performed by Bob Watson MD at [facility] Cardiac Cath/EP Lab FISTULAGRAM (HISTORICAL) Left 09/15/2021 LEFT UPPER ARM HX AV FISTULA CREATION IR EMBOLIZATION 10/14/2024 IR EMBOLIZATION 10/14/2024 [facility] SPECIAL PROCEDURES IR FISTULAGRAM 08/07/2022 IR FISTULAGRAM 08/07/2022 [facility] IR IMAGING TONSILLECTOMY (HISTORICAL) Admission Diagnosis: Patient Active Problem List Diagnosis Date Noted Severe malnutrition ([facility]) ([facility]) 01/19/2025 Complication of tracheostomy ([facility]) ([facility]) 01/19/2025 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 01/12/2025 Acute respiratory failure with hypoxia ([facility]) [J96.01] 01/08/2025 Tracheostomy care ([facility]) [Z43.0] 01/08/2025 Pulmonary embolism ([facility]) 01/08/2025 Sacral osteomyelitis ([facility]) ([facility]) 01/03/2025 Pneumonia of both lungs due to methicillin susceptible Staphylococcus aureus (MSSA) ([facility]) 01/01/2025 Leukocytosis 12/30/2024 Decubitus ulcer of sacral region, unstageable ([facility]) 12/30/2024 Peritonitis due to fungus ([facility]) 11/30/2024 History of abdominal surgery 11/30/2024 Leg DVT (deep venous thromboembolism), acute, left ([facility]) 11/30/2024 Ischemic ulcer of toe of left foot, limited to breakdown of skin ([facility]) 11/30/2024 Tracheostomy dependence ([facility]) 11/30/2024 Pleural effusion 11/28/2024 Gastric ulceration 2024 Atrial flutter, unspecified type ([facility]) 10/03/2024 RSV (acute bronchiolitis due to respiratory syncytial virus) 10/03/2024 Diverticulosis 10/08/2023 Nonrheumatic aortic valve stenosis 10/08/2023 Calcification of abdominal aorta ([facility]) 10/08/2023 Missed vaccination due to patient refusal 10/08/2023 Tobacco abuse 10/08/2023 Alcohol use disorder in remission 10/08/2023 Paroxysmal A-fib ([facility]) ([facility]) 08/18/2023 HTN (hypertension) 12/01/2022 ESRD on hemodialysis ([facility]) ([facility]) 10/26/2019 IgA nephropathy determined by biopsy of kidney 10/26/2019 Aortic stenosis 10/03/2024 Upper GI bleed 10/03/2024 S/P AVR 10/03/2024 Acute hypoxic respiratory failure ([facility]) 10/03/2024 Acute encephalopathy 10/03/2024 Pneumoperitoneum 10/03/2024 Anemia [...] events, decreased short term memory, and decreased 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 designer memory - Safety judgement: decreased awareness of [...] Poor historian. Per pt he came from [facility]. Pt unable to recall living situation prior to [facility], states "I've been in and out of [...] of Care supervision is transferred to a [facility] Services Occupational Therapist. Goals and/or treatment plan was established in collaboration with patient/family/other representatives. Hospitalist Progress Note 01/20/2025 Subjective: Admit Date: 01/19/2025 PCP: Leilani Troncoso Room#: [id number] A BRIEF HOSPITAL COURSE: Patient is a 59 yo male with a PMH of Trach and peg, HTN, paroxysmal a-fib, R occipital ICH, Tobacco abuse, ARF - dialysis (TTS; LUE AVF), diverticulosis, IgA nephropathy, severe that presented to [facility] ED from a facility due to trach dislodgement. Per patient, was trying to disconnect his vent to transfer to another room but accidentally pulled out his tracheostomy. This event happened approximately 45 minutes before ED arrival. ED attempted to place tracheostomy tube back but were unsuccessful. Decision was made to transfer patient to [facility] ICU for further airway management and determine if replacement tracheostomy is needed. Was observed at [facility] ICU initially and transferred to [facility] on 01/20. Noted removal of [...] Date Acute renal failure (ARF) ([facility]) 10/19/2019 Anemia 12/30/2021 Calcification of abdominal aorta ([facility]) 10/08/202309/[address] abd Diverticulosis 10/08/2023 ESRD on hemodialysis ([facility]) ([facility]) 10/26/2019 Hemodialysis patient ([facility]) ([facility]) HTN (hypertension) 12/01/2022 Hypertension IgA nephropathy IgA nephropathy determined by biopsy of kidney 10/26/2019 Missed vaccination due to patient refusal 10/08/2023 Has a number of non-scientific based beliefs which interfere with his understanding and acceptance of the medical benefit of vaccination. Nonrheumatic aortic valve stenosis 10/08/2023 Paroxysmal A-fib ([facility]) ([facility]) 08/18/2023 Tobacco abuse 10/08/2023 LABS: CBC: Recent [...] and limit nighttime disturbances - DVT prophylaxis: [facility] 02-01-2025 Hospital course Narrative Discharge Summary Jun Snyder : 1965 ADMIT DATE: 01/19/2025 DISCHARGE DATE: 02/01/2025 PRIMARY CARE PHYSICIAN: Leilani Troncoso VISIT STATUS: Admission CODE STATUS: Full Code DISCHARGE DIAGNOSES: Principal Problem: Complication of tracheostomy ([facility]) ([facility]) Active Problems: Severe malnutrition ([facility]) ([facility]) BRBPR (bright red blood per rectum) HOSPITAL COURSE: Jun Snyder is a 59 y.o. male who who presented to [facility] 01/19 after inadvertent removal of his tracheostomy. He was transferred to [facility] ICU for surgical evaluation. On [...] HD successfully. hemodynamically stable. Transferred out to [facility] 01/27 ID following for sacral osteomyelitis, s/p wound debridement to bone on 01/02, cultures grew E faecalis and Clostridium, continue with renally dosed ampicillin sulbactam for 6 weeks course through 02/13/2025, needs tunneled line, status post IR CVC tunneled line on 01/29 Nephrology following, on dialysis CREDIT CONTROL CLERK following PT/OT recommends SNF Patient will be [...] Date Acute renal failure (ARF) ([facility]) 10/19/2019 Anemia 12/30/2021 Calcification of abdominal aorta ([facility]) 10/08/202309/[address] abd Diverticulosis 10/08/2023 ESRD on hemodialysis ([facility]) ([facility]) 10/26/2019 Hemodialysis patient ([facility]) ([facility]) HTN (hypertension) 12/01/2022 Hypertension IgA nephropathy IgA [...] 20 mL/hr, Last Rate: 20 mL/hr (01/30/25 183) Assessment Data: (CAT1) Reviewed 2 notes from [...] by ID -S/p tunneled central line placement -CREDIT CONTROL CLERK follow, dysphagia diet -PT OT DC recommend SNF SIGNIFICANT DIAGNOSTIC STUDIES: IR cvc tunneled central line placement [[id number]] Collected: 01/30/25 143 Order Status: Completed Updated: [...] FL modified barium with video and speech [[id number]] Collected: 01/25/25 1322 Order Status: Completed Updated: 01/25/25 7877 Narrative: Patient Name: JUN SNYDER : 1965 [...] 3:12 PM EDT XR chest 1 view [[id number]] Collected: 01/24/258 Order Status: Completed Updated: 01/24/25 0200 Narrative: [...] pelvis angiogram w and/or wo IV contrast [[id number]] Collected: 01/20/25 184 Order Status: Completed Updated: 01/20/251902 Narrative: Patient Name: JUN SNYDER : 1965 [id number] Exam Date/Time: 01/20/2025 17:02 Procedure: CT ABDOMEN [...] 7:02 PM EDT XR chest 1 view [[id number]] Collected: 01/19/25 0615 Order Status: Completed Updated: 01/19/25616 Narrative: Patient Name: JUN SNYDER : 1965 [facility] [id number] Exam Date/Time: 01/19/2025 05:58 Procedure: XR CHEST [...] 6:16 AM EDT XR chest 1 view [[id number]] Collected: 01/18/25 1242 Order Status: Completed Updated: [...] days. CONTINUE taking these medications epoetin rowan-epbx 63446 UNIT/ML injection Commonly known as: Retacrit Inject [...] Complexity: follow up within 7-14 calendar days (27368) [] Severe Complexity: follow up within 7 calendar days (31949) FOLLOW UP TESTING, PENDING RESULTS OR REFERRALS AT TRANSITIONAL CARE VISIT: [] Yes [] No PENDING STUDIES: DISPOSITION: Skilled Facility FACILITY/HOME CARE AGENCY NAME: Follow up with [facility] [address] [place] [id number] Gurdeep Cruz MD [address] [place] [address] [address] [place] [address] Schedule an appointment as soon as possible [...] 02/01/2025, 10:29 AM documented in this encounter [employer] 01-29-2025 Telephone encount er Note Chart reviewed, patient appears to be sensitive to warfarin at this time and I wouldn't be able to guarantee INR remains less than 3, so opted to hold dose today. I canceled order. [employer] Work Phone: 01-29-2025 Miscellaneous Notes Formattin g of this note might be different from the original. Chart reviewed, patient appears to be sensitive to warfarin at this time and I wouldn't be able to guarantee INR remains less than 3, so opted to hold dose today. I canceled order. Samantha RN with [facility] [employer] called to inform SAILAJA [...] as needed tomorrow. documented in this encounter [facility] 01-29-2025 Telephone encount er Note SWEETIE [...] SAILAJA will make adjustments as needed tomorrow. [facility] 01-26-2025 Hospital Discharg e instructions Kristine [...] 10/09/2024 Performed by Bob Watson MD at [facility] Cardiac Cath/EP Lab CARDIAC CATHETERIZATION Bilateral 11/01/2024 Performed by Bob Watson MD at [facility] Cardiac Cath/EP Lab CARDIAC CATHETERIZATION N/A 11/01/2024 Performed by Bob Watson MD at [facility] Cardiac Cath/EP Lab COLONOSCOPY N/A 01/24/2025 Performed by Chadd Davis MD at [facility] ENDOSCOPY FISTULAGRAM (HISTORICAL) Left 09/15/2021 LEFT UPPER ARM HX AV FISTULA CREATION IR EMBOLIZATION 10/14/2024 IR EMBOLIZATION 10/14/2024 [facility] SPECIAL PROCEDURES IR FISTULAGRAM 08/07/2022 IR FISTULAGRAM 08/07/2022 [facility] IR IMAGING TONSILLECTOMY (HISTORICAL) Immunization History: Immunization [...] Acute respiratory failure with hypoxia ([facility]) [J96.01] Tracheostomy care ([facility]) [Z43.0] Pulmonary embolism (HCC) MCFP (current) use of antibiotics Anemia Aortic stenosis [...] Total assistance Toileting Total assistance Feeding Independent Mail Carrier And Clerk Independent Med Delivery yes Wound Care Documentation and Therapy: Wound/Incision 11/13/24 Pressure Injury Sacrum (Active) Wound Image 01/19/25 0500 Site Assessment [place];Red 01/26/25 1200 [place]-Wound Assessment Intact 01/26/25 0355 [...] 01/21/25 Discharging to Facility/ Agency Name: Annia Ruano Address: [facility] Fax: Dialysis Facility (if applicable) Name: Address: Dialysis Schedule: [facility] Phone: Fax: Medical Record Coder/Plaster Model And Mold Maker signature: ICIAN SECTION Name: Jun Snyder Prognosis: fair Condition at Discharge: stable Rehab Potential (if transferring to Rehab): fair Recommended Labs or Other Treatments After Discharge: cbc,cmp, PT/INR for warfarin, C/W Ampicillin-Sulbactam till 02/13, F/U with ID The individual is being admitted to a nursing facility directly from an [facility] or a unit of a [facility] that is not operated by or licensed by [facility] under section 5119.14 or 5160-3-15.1 5 The individual requires the level of services provided by a nursing facility for the condition for which he or she was treated in the hospital and, Physician Certification: I certify the above information and transfer of Jun Snyder is necessary for the continuing treatment of the diagnosis listed and that he requires senior living facility for less than 30 days. Update Admission H&P: No change in H&P PHYSICIAN SIGNATURE: documented in this encounter [facility] 01-24-2025 Procedure note Images from the [...] Safety: The patient was placed on a rural route carrier and vital signs, pulse oximetry, and level [...] by this procedure note. Cosigned by Koffi Kou MD at 01/24/2025 2:08 PM EDT Associated attestation - Koffi Kuo MD - 01/24/2025 2:08 PM EDT Supervision: Supervision was required for this procedure. I, Koffi Kuo, was physically present and supervised all francis elements of the procedure. documented in this encounter [facility] 01-23-2025 Consult note Associated Order (s): INPATIENT CONSULT TO WOUND CARE PROVIDERS Images from the original note were not included. [facility] Wound Care Re-CONSULT Note Jun Snyder [...] diverticulosis, IgA nephropathy, severe that presented to [facility] ED from a facility due to trach [...] Date Acute renal failure (ARF) ([facility]) 10/19/2019 Anemia 12/30/2021 Calcification of abdominal aorta ([facility]) 10/08/202309/[address] abd Diverticulosis 10/08/2023 ESRD on hemodialysis ([facility]) ([facility]) 10/26/2019 Hemodialysis patient ([facility]) ([facility]) HTN (hypertension) 12/01/2022 Hypertension IgA nephropathy IgA nephropathy determined by biopsy of kidney 10/26/2019 Missed vaccination due to patient refusal 10/08/2023 Has a number of non-scientific based beliefs which interfere with his understanding and acceptance of the medical benefit of vaccination. Nonrheumatic aortic valve stenosis 10/08/2023 Paroxysmal A-fib ([facility]) ([facility]) 08/18/2023 Tobacco abuse 10/08/2023 PAST SURGICAL HISTORY Past Surgical History: Procedure Laterality Date APPENDECTOMY CARDIAC CATHETERIZATION N/A 10/09/2024 Performed by Bob Watson MD at [facility] Cardiac Cath/EP Lab CARDIAC CATHETERIZATION Bilateral 11/01/2024 Performed by Bob Watson MD at [facility] Cardiac Cath/EP Lab CARDIAC CATHETERIZATION N/A 11/01/2024 Performed by Bob Watson MD at [facility] Cardiac Cath/EP Lab FISTULAGRAM (HISTORICAL) Left 09/15/2021 LEFT UPPER ARM HX AV FISTULA CREATION IR EMBOLIZATION 10/14/2024 IR EMBOLIZATION 10/14/2024 [facility] SPECIAL PROCEDURES IR FISTULAGRAM 08/07/2022 [...] Medication Sig Dispense Refill epoetin rowan-epbx (Retacrit) 86599 UNIT/ML injection Inject 0.79 mL (7,900 Units) [...] apply Betadine and allow to dry, leave L[place]ULIER daily and PRN -Recommend PVRs for circulation check Nutritional support Wound Care to follow Recommend to follow up at [facility] Outpatient wound care center after hospital [...] Gill DO at 01/29/2025 4:37 PM EDT [facility] Anticoagulation Management Service (SAILAJA) Inpatient Warfarin Consult HPI: Jun Snyder is a 59 y.o. male admitted on 01/19/2025 for Complication of tracheostomy ([facility]) ([facility]) [J95.00] Past Medical History: Diagnosis Date Acute renal failure (ARF) ([facility]) 10/19/2019 Anemia 12/30/2021 Calcification of abdominal aorta ([facility]) 10/08/202309/[address] abd Diverticulosis 10/08/2023 ESRD on hemodialysis ([facility]) ([facility]) 10/26/2019 Hemodialysis patient ([facility]) ([facility]) HTN (hypertension) 12/01/2022 Hypertension IgA nephropathy IgA nephropathy determined by biopsy of kidney 10/26/2019 Missed vaccination due to patient refusal 10/08/2023 Has a number of non-scientific based beliefs which interfere with his understanding and acceptance of the medical benefit of vaccination. Nonrheumatic aortic valve stenosis 10/08/2023 Paroxysmal A-fib ([facility]) ([facility]) 08/18/2023 Tobacco abuse 10/08/2023 Patient is on [...] and plan for colonoscopy tomorrow, please notify [facility] when able to resume anticoagulation. 2. Monitor for s/s of bleeding and drug interactions. Will adjust dose accordingly 3. Will facilitate f/u at [facility] upon discharge Fatuma Odonnell RPh, PharmD [facility] is available daily [phone] via [employer]. If no response on [employer] then please page [phone]. Images from the original note were not [...] Toma. [facility] Contacted social work for assistance. - [...] AV replacement Supratherapeutic INR - [facility] valve in 09/2024 - coumadin held due [...] Palliative Care IDT members involved: Palliative Care Plaster Model And Mold Maker Discussed the plan of care with [...] to have bile peritonitis" 11/28/24: transferred to [facility] He ended up developing sacral ulcer and osteomyelitis at [facility]. He then ended up dislodging his tracheostomy, and was brought to [facility] ED for further care. Palliative [...] the last several months, with being in [facility] and now back into the hospital. I [...] and the size prior to going to [facility]. Discussed current treatment of this, including antibiotics. [...] child(rocky) Living status: SNF Work history: unknown [place] status: unknown Confucianist annette: Non-Hinduism ROS: See palliative care ROS/ESAS below; All other systems were reviewed and are negative. Kinder Symptom Assessment Score Kinder Score Pain Score (if non-verbal, add .FLACC [...] CT abd Diverticulosis 10/08/2023 ESRD on hemodialysis ([facility]) ([facility]) 10/26/2019 Hemodialysis patient ([facility]) ([facility]) HTN (hypertension) 12/01/2022 Hypertension IgA nephropathy IgA nephropathy determined by biopsy of kidney 10/26/2019 Missed vaccination due to patient refusal 10/08/2023 Has a number of non-scientific based beliefs which interfere with his understanding and acceptance of the medical benefit of vaccination. Nonrheumatic aortic valve stenosis 10/08/2023 Paroxysmal A-fib ([facility]) ([facility]) 08/18/2023 Tobacco abuse 10/08/2023 Past Surgical History: Procedure Laterality Date APPENDECTOMY CARDIAC CATHETERIZATION N/A 10/09/2024 Performed by Bob Watson MD at [facility] Cardiac Cath/EP Lab CARDIAC CATHETERIZATION Bilateral 11/01/2024 Performed by Bob Watson MD at [facility] Cardiac Cath/EP Lab CARDIAC CATHETERIZATION N/A 11/01/2024 Performed by Bob Watson MD at [facility] Cardiac Cath/EP Lab FISTULAGRAM (HISTORICAL) Left 09/15/2021 LEFT UPPER ARM HX AV FISTULA CREATION IR EMBOLIZATION 10/14/2024 IR EMBOLIZATION 10/14/2024 [facility] SPECIAL PROCEDURES IR FISTULAGRAM 08/07/2022 [...] Transition Note Initiated: yes Tex Cotto MD [facility] Anticoagulation Management Service ([facility]ILA[facility]) Inpatient Warfarin Consult HPI: Jun Snyder is a 59 y.o. male admitted on 01/19/2025 for Complication of tracheostomy ([facility]) ([facility]) [J95.00] Past Medical History: Diagnosis Date Acute renal failure (ARF) ([facility]) 10/19/2019 Anemia 12/30/2021 Calcification of abdominal aorta ([facility]) 10/08/202309/[address] abd Diverticulosis 10/08/2023 ESRD on hemodialysis ([facility]) ([facility]) 10/26/2019 Hemodialysis patient ([facility]) ([facility]) HTN (hypertension) 12/01/2022 Hypertension IgA nephropathy IgA nephropathy determined by biopsy of kidney 10/26/2019 Missed vaccination due to patient refusal 10/08/2023 Has a number of non-scientific based beliefs which interfere with his understanding and acceptance of the medical benefit of vaccination. Nonrheumatic aortic valve stenosis 10/08/2023 Paroxysmal A-fib ([facility]) ([facility]) 08/18/2023 Tobacco abuse 10/08/2023 Patient is on [...] possible GIB and elevated INR, please notify [facility] when able to resume anticoagulation. 2. Monitor for s/s of bleeding and drug interactions. Will adjust dose accordingly 3. Will facilitate f/u at [facility] upon discharge Fatuma Odonnell RPh, PharmD [facility] is available daily [phone] via Y-Klub. If no response on Exaptive Chat then please page [phone]. [facility] Anticoagulation Management Service (SAILAJA) Inpatient Warfarin Consult HPI: Jun Snyder is a 59 y.o. male admitted on 01/19/2025 for Complication of tracheostomy ([facility]) ([facility]) [J95.00] Past Medical History: Diagnosis Date Acute renal failure (ARF) ([facility]) 10/19/2019 Anemia 12/30/2021 Calcification of abdominal aorta ([facility]) 10/08/202309/[address] abd Diverticulosis 10/08/2023 ESRD on hemodialysis ([facility]) ([facility]) 10/26/2019 Hemodialysis patient ([facility]) ([facility]) HTN (hypertension) 12/01/2022 Hypertension IgA nephropathy IgA nephropathy determined by biopsy of kidney 10/26/2019 Missed vaccination due to patient refusal 10/08/2023 Has a number of non-scientific based beliefs which interfere with his understanding and acceptance of the medical benefit of vaccination. Nonrheumatic aortic valve stenosis 10/08/2023 Paroxysmal A-fib ([facility]) ([facility]) 08/18/2023 Tobacco abuse 10/08/2023 Patient is on warfarin for Afib, mechanical AVR and has a goal INR 2.0 - 3.0. Warfarin is currently managed by [facility], has yet to be seen by [facility]. Pt's home dose of warfarin is [...] admission. Holding warfarin for GIB, please notify [facility] when able to resume anticoagulation. 2. Monitor for s/s of bleeding and drug interactions. Will adjust dose accordingly 3. Will facilitate f/u at [facility] upon discharge Darryn Wagner RPh, PharmD [facility] is available daily [phone] via Y-Klub. If no response on Y-Klub then please page [phone]. Associated Order(s): IP CONSULT TO GENERAL SURGERY Images from the original note were not included. Department of General Surgery Surgical Service - [facility] Resident Consult Note 01/21/2025 CHIEF COMPLAINT: Chief [...] Date Acute renal failure (ARF) ([facility]) 10/19/2019 Anemia 12/30/2021 Calcification of abdominal aorta ([facility]) 10/08/202309/[address] abd Diverticulosis 10/08/2023 ESRD on hemodialysis ([facility]) ([facility]) 10/26/2019 Hemodialysis patient ([facility]) ([facility]) HTN (hypertension) 12/01/2022 Hypertension IgA nephropathy IgA nephropathy determined by biopsy of kidney 10/26/2019 Missed vaccination due to patient refusal 10/08/2023 Has a number of non-scientific based beliefs which interfere with his understanding and acceptance of the medical benefit of vaccination. Nonrheumatic aortic valve stenosis 10/08/2023 Paroxysmal A-fib ([facility]) ([facility]) 08/18/2023 Tobacco abuse 10/08/2023 Past Surgical History: Procedure Laterality Date APPENDECTOMY CARDIAC CATHETERIZATION N/A 10/09/2024 Performed by Bob Watson MD at [facility] Cardiac Cath/EP Lab CARDIAC CATHETERIZATION Bilateral 11/01/2024 Performed by Bob Watson MD at [facility] Cardiac Cath/EP Lab CARDIAC CATHETERIZATION N/A 11/01/2024 Performed by Bob Watson MD at [facility] Cardiac Cath/EP Lab FISTULAGRAM (HISTORICAL) Left 09/15/2021 LEFT UPPER ARM HX AV FISTULA CREATION IR EMBOLIZATION 10/14/2024 IR EMBOLIZATION 10/14/2024 [facility] SPECIAL PROCEDURES IR FISTULAGRAM 08/07/2022 IR FISTULAGRAM 08/07/2022 [facility] IR IMAGING TONSILLECTOMY (HISTORICAL) Medications Prior to Admission: Current Facility-Administered Medications Medication Dose Route Frequency Provider Last Rate Last Admin acetaminophen (Tylenol) tablet 1,000 mg 1,000 mg Oral q8h PRN Steve Lassiter MD 1,000 mg at 01/19/25 1540 ampicillin-sulbactam (Unasyn) 3,000 mg in sodium chloride 0.9 % 100 mL IVPB (Add-[place]) 3,000 mg IntraVENous q12h Steve Lassiter MD [...] Patient Unable To Answer (12/01/2024) Received from [facility] Overall Financial Resource Strain (CARDIA) Difficulty of Paying Living Expenses: Patient unable to answer Food Insecurity: Patient Unable To Answer (12/01/2024) Received from [facility] Hunger Vital Sign Worried About Running Out of Food in the Last Year: Patient unable to answer Ran Out of Food in the Last Year: Patient unable to answer Transportation Needs: No Transportation Needs (01/18/2025) Received from [facility] Transportation Source Has lack of transportation kept you from medical appointments or from getting medications?: No Has lack of transportation kept you from meetings, work, or from getting things needed for daily living?: No Stress: No Stress Concern Present (01/18/2025) Received from [facility] - Occupational Stress Questionnaire Feeling of Stress : Not at all Social Connections: Patient Unable To Answer (12/01/2024) Received from [facility] Social Connection and Isolation Panel [NHANES] Frequency of Communication with Friends and Family: Patient unable to answer Frequency of Social Gatherings with Friends and Family: Patient unable to answer Attends Confucianist Services: Patient unable to answer Active Member [...] by: [facility], [address] [place] [id number] CLIA ID: [id number] POCT glucose meter Performed by: [facility], [address] [place] [id number] CLIA ID: [id number] POCT glucose meter Performed by: [facility], [address] [place] [id number] CLIA ID: [id number] POCT glucose meter Performed by: [facility], [address] [place] [id number] CLIA ID: [id number] POCT glucose meter Performed by: [facility], [address] [place] [id number] CLIA ID: [id number] POCT glucose meter Performed by: [facility], [address] [place] [id number] CLIA ID: [id number] ASSESSMENT AND PLAN: Jun Snyder is a [...] Brenton Goldstein MD General Surgery PGY-1 Pager #[phone] Cosigned by Tex Brush MD at 01/22/2025 6:07 AM EDT Associated attestation - Tex Brush MD - 01/22/2025 6:07 AM EDT ATTENDING ADDENDUM Active Diagnoses/Problems this Admission: Patient Active Problem List Diagnosis Anemia Paroxysmal A-fib (CMS/HCC) ([facility]) HTN (hypertension) ESRD on hemodialysis ([facility]) ([facility]) IgA nephropathy determined by biopsy of kidney Diverticulosis Nonrheumatic aortic valve stenosis Calcification of abdominal aorta ([facility]) Missed vaccination due to patient refusal Tobacco abuse Alcohol use disorder in remission Atrial flutter, unspecified type ([facility]) RSV (acute bronchiolitis due to respiratory syncytial virus) Aortic stenosis Upper GI bleed S/P AVR Acute hypoxic respiratory failure ([facility]) Acute encephalopathy Pneumoperitoneum Gastric ulceration Severe malnutrition (CMS/HCC) ([facility]) Pleural effusion Peritonitis due to fungus ([facility]) History of abdominal surgery Leg DVT (deep venous thromboembolism), acute, left (HCC) Ischemic ulcer of toe of left foot, limited to breakdown of skin ([facility]) Tracheostomy dependence ([facility]) Leukocytosis Decubitus ulcer of sacral region, unstageable ([facility]) Pneumonia of both lungs due to methicillin susceptible Staphylococcus aureus (MSSA) ([facility]) Sacral osteomyelitis (CMS/HCC) ([facility]) Acute respiratory failure with hypoxia ([facility]) [J96.01] Tracheostomy care ([facility]) [Z43.0] Pulmonary embolism ([facility]) MCFP (current) use of antibiotics Complication of tracheostomy ([facility]/HCC) ([facility]) I personally supervised the resident physician in [...] Division of Trauma Department of Surgery [facility] Images from the original note [...] IgA nephropathy, severe who was admitted to [facility] 01/19 due to trach dislodgement. [...] Normal [] Scar/Lesion/Mass Inspection of teeth/lips/gums Dentition: [][place] Teeth []Dentures Lips/Gums: [x]Intact []Lesion Present Mucosa: [x][place] []Moist [x]Dry Neck: External Appearance Overall Appearance: [...] Active Problems: Severe malnutrition (CMS/HCC) ([facility]) Assessment: Rectal bleeding with concern for GIB [...] transfer GI Prophylaxis: Pantoprazole IV DVT Prophylaxis: [facility] BMI Classification: Body mass index is 18.63 [...] 2:43 PM I have personally performed a [id number] diagnostic evaluation on this patient on date of service 01/21/2025. History, labs, imaging studies, and electronic medical record have been reviewed by me. This note documented by the [x]supervisor housecleaner []ARMIN reflects my history, exam, and medical decision making. I have reviewed and agree with the care plan. Changes were made in the orders as necessary. ROS documentation was reviewed and negative unless otherwise stated in HPI. Additional pertinent interval history, ROS, and physical exam findings: Mr Snyder is a 59 year old male who presented to [facility] 01/19 after inadvertent removal of his tracheostomy. He was transferred to [facility] ICU for surgical evaluation. On [...] maintain >7 -Hold coumadin -Continue protonix bid -DOT NET ARCHITECT per nephrology, will appreciate recs -Consult general [...] Abhishek gastrostomy tube placement, who presented to [facility] on 01/19/25 as a transfer from [facility] Per patient, was trying to disconnect his vent to transfer to another room but accidentally pulled out his tracheostomy. This event happened approximately 45 minutes before ED arrival. ED attempted to place tracheostomy tube back but were unsuccessful. Decision was made to transfer patient to [facility] ICU for further airway management and determine if replacement tracheostomy is needed. Patient was admitted to the MICU-01/19 where he was evaluated by general surgery for re-do tracheostomy and determined to be saturating appropriately on room air without need for re-placement. Patient was transferred out of the MICU for potential discharge back to [facility] 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 [facility] facility. The MICU is consulted now for [...] Date Acute renal failure (ARF) ([facility]) 10/19/2019 Anemia 12/30/2021 Calcification of abdominal aorta ([facility]) 10/08/202309/[address] abd Diverticulosis 10/08/2023 ESRD on hemodialysis ([facility]) ([facility]) 10/26/2019 Hemodialysis patient ([facility]) ([facility]) HTN (hypertension) 12/01/2022 Hypertension IgA nephropathy IgA [...] 10/09/2024 Performed by Bob Watson MD at [facility] Cardiac Cath/EP Lab CARDIAC CATHETERIZATION Bilateral 11/01/2024 Performed by Bob Watson MD at [facility] Cardiac Cath/EP Lab CARDIAC CATHETERIZATION N/A 11/01/2024 Performed by Bob Watson MD at [facility] Cardiac Cath/EP Lab FISTULAGRAM (HISTORICAL) Left 09/15/2021 LEFT UPPER ARM HX AV FISTULA CREATION IR EMBOLIZATION 10/14/2024 IR EMBOLIZATION 10/14/2024 [facility] SPECIAL PROCEDURES IR FISTULAGRAM 08/07/2022 [...] Patient Unable To Answer (12/01/2024) Received from [facility] Medical Overall Financial Resource Strain (CARDIA) Difficulty of Paying Living Expenses: Patient unable to answer Food Insecurity: Patient Unable To Answer (12/01/2024) Received from [facility] Medical Hunger Vital Sign Worried About Running Out of Food in the Last Year: Patient unable to answer Ran Out of Food in the Last Year: Patient unable to answer Transportation Needs: No Transportation Needs (01/18/2025) Received from [facility] Medical [facility] Transportation Source Has lack of transportation kept you from medical appointments or from getting medications?: No Has lack of transportation kept you from meetings, work, or from getting things needed for daily living?: No Physical Activity: Not on file Stress: No Stress Concern Present (01/18/2025) Received from [facility] - Occupational Stress Questionnaire Feeling of Stress : Not at all Social Connections: Patient Unable To Answer (12/01/2024) Received from [facility] Medical Social Connection and Isolation Panel [NHANES] Frequency of Communication with Friends and Family: Patient unable to answer Frequency of Social Gatherings with Friends and Family: Patient unable to answer Attends Confucianist Services: Patient unable to answer Active Member of Clubs or Organizations: Patient unable to answer Attends Club or Organization Meetings: Patient unable to answer Marital Status: Patient unable to answer Intimate Partner Violence: Patient Unable To Answer (11/28/2024) Received from [facility] Medical Domestic Abuse Assessment Do you feel safe in your relationships at home?: Unable to assess Physical Abuse: Unable to assess [facility] Domestic Abuse - Type of Abuse: Not on file [facility] Domestic Abuse - Time Frame: Not on file [facility] Domestic Abuse - Signs and Symptoms: Not on file Verbal Abuse: Unable to assess [facility] Domestic Abuse - Reported To: Not on file Housing Stability: Patient Unable To Answer (12/01/2024) Received from [facility] Medical Housing Stability Vital Sign Unable to Pay for Housing in the Last Year: Patient unable to answer Number of Times Moved in the Last Year: 0 Homeless in the Last Year: Patient unable to answer Allergies Allergen Reactions Lisinopril Swelling and Angioedema Prior to Admission medications Medication Sig Start Date End Date Taking? Authorizing Provider epoetin rowan-epbx (Retacrit) 93720 UNIT/ML injection Inject 0.79 mL (7,900 Units) [...] Normal [] Scar/Lesion/Mass Inspection of teeth/lips/gums Dentition: [][place] Teeth []Dentures Lips/Gums: [x]Intact []Lesion Present Mucosa: [x][place] []Moist []Dry Neck: External Appearance Overall Appearance: [...] -- ABGs: No results for input(s): "PHART", "LJW6DJX", "PO2ART", "DUW5GMS", "SO2ART", "Q3SJKSBH" in the last 72 hours. Lactic Acid: [...] Problem: Complication of tracheostomy (CMS/HCC) ([facility]) Active Problems: Severe malnutrition (CMS/HCC) ([facility]) Assessment: Passage of Bright red blood per [...] normal BMI 18.5-24.9 Disposition: Remain on the [facility] Critical Care Time: Total critical [...] PM EDT I have personally performed a ueva-wj-abti diagnostic evaluation on this patient on date of service 01/20/25. History, labs, imaging studies, and electronic medical record have been reviewed by me. This note documented by the []supervisor housecleaner []ARMIN reflects my history, exam, and medical [...] the original note were not included. [facility] - Infectious Diseases Advanced Practice Provider Consult Note Reason for Consult: Sacral ulcer osteomyelitis on IV abx at [facility]- known patient History of Present Illness: 59 yo male with PMHx significant for ESRD on HD, HTN, and PAD who was admitted at [facility] 10/03-11/28/24 after presenting with chest [...] Pip-Tazo and Anidulafungin. He was transferred to [facility] on 11/28/24. There he was followed by our ID group and had had recurrent MSSA LRTI that was treated. Additionally, his sacral wound was debrided to bone on 01/02/25. Sacral wound Cx + E faecalis and Clostridium clostridioforme. He is to be on a course of Amp-Sulbactam x6 weeks through 02/13/25. He was discharged to SNF on 01/18. Patient presented to [facility] on 01/19 after self-dislodging tracheostomy. He was transferred to [facility] ICU for further airway management [...] Date Acute renal failure (ARF) ([facility]) 10/19/2019 Anemia 12/30/2021 Calcification of abdominal aorta ([facility]) 10/08/202309/[address] abd Diverticulosis 10/08/2023 ESRD on hemodialysis ([facility]) ([facility]) 10/26/2019 Hemodialysis patient ([facility]) ([facility]) HTN (hypertension) 12/01/2022 Hypertension IgA nephropathy IgA nephropathy determined by biopsy of kidney 10/26/2019 Missed vaccination due to patient refusal 10/08/2023 Has a number of non-scientific based beliefs which interfere with his understanding and acceptance of the medical benefit of vaccination. Nonrheumatic aortic valve stenosis 10/08/2023 Paroxysmal A-fib ([facility]) ([facility]) 08/18/2023 Tobacco abuse 10/08/2023 Past Surgical History: Past Surgical History: Procedure Laterality Date APPENDECTOMY CARDIAC CATHETERIZATION N/A 10/09/2024 Performed by Bob Watson MD at [facility] Cardiac Cath/EP Lab CARDIAC CATHETERIZATION Bilateral 11/01/2024 Performed by Bob Watson MD at [facility] Cardiac Cath/EP Lab CARDIAC CATHETERIZATION N/A 11/01/2024 Performed by Bob Watson MD at [facility] Cardiac Cath/EP Lab FISTULAGRAM (HISTORICAL) Left 09/15/2021 LEFT UPPER ARM HX AV FISTULA CREATION IR EMBOLIZATION 10/14/2024 IR EMBOLIZATION 10/14/2024 [facility] SPECIAL PROCEDURES IR FISTULAGRAM 08/07/2022 IR FISTULAGRAM 08/07/2022 [facility] IR IMAGING TONSILLECTOMY (HISTORICAL) Current Medications: Current Facility-Administered Medications Medication Dose Route Frequency Provider Last Rate Last Admin acetaminophen (Tylenol) tablet 1,000 mg 1,000 mg Oral q8h PRN Steve Lassiter MD 1,000 mg at 01/19/25 1540 ampicillin-sulbactam (Unasyn) 3,000 mg in sodium chloride 0.9 % 100 mL IVPB (Add-[place]) 3,000 mg IntraVENous q12h Steve Lassiter MD [...] Transportation Needs (01/18/2025) Received from [facility] Transportation Source Has lack of transportation kept you from medical appointments or from getting medications?: No Has lack of transportation kept you from meetings, work, or from getting things needed for daily living?: No Physical Activity: Not on file Stress: No Stress Concern Present (01/18/2025) Received from [facility] - Occupational Stress Questionnaire Feeling of Stress : Not at all Social Connections: Patient Unable To Answer (12/01/2024) Received from [facility] Social Connection and Isolation Panel [NHANES] Frequency of Communication with Friends and Family: Patient unable to answer Frequency of Social Gatherings with Friends and Family: Patient unable to answer Attends Confucianist Services: Patient unable to answer Active Member of Clubs or Organizations: Patient unable to answer Attends Club or Organization Meetings: Patient unable to answer Marital Status: Patient unable to answer Intimate Partner Violence: Patient Unable To Answer (11/28/2024) Received from [facility] Domestic Abuse Assessment Do you feel safe in your relationships at home?: Unable to assess Physical Abuse: Unable to assess [facility] Domestic Abuse - Type of Abuse: Not on file [facility] Domestic Abuse - Time Frame: Not on file [facility] [facility] Abuse - Signs and Symptoms: Not on file Verbal Abuse: Unable to assess [facility] Domestic Abuse - Reported To: Not on file Housing Stability: Patient Unable To Answer (12/01/2024) Received from [facility] Housing Stability Vital Sign Unable to Pay [...] NEUTROABS 7.6* 7.5 7.5 -- Micro: Previous ([facility]) 01/02- sacral wound cx- E faecalis (Amp-S), [...] wound debrided to bone on 01/02 at [facility] (Cx with E faecalis and Clostridium) Plan [...] for open encounter. Mikala MORAN PA-C [facility] [place] Cosigned by Gurdeep Cruz MD [...] gastrostomy tube placement, who presented to the [place] emergency room from senior living [facility] on 01/19/2025 where he is admitted for IV antibiotics for multiple infected wounds including dry gangrene to the left foot and sacral ulcers. Patient accidentally pulled his tracheostomy and was therefore transferred to the emergency room. Patient transferred to [facility] for higher level of care. GI consult as above. We saw the patient during his last complicated admission. Our evaluation included consult for UGI bleed 2/ possible duodenal ulcer s/p EGD 10/14/24 with [...] throughout entire last hospitalization. On presentation to [place] 01/19/2025 hemoglobin was 9.1. This morning dropped to 6.6. No transfusion but repeat hemoglobin 3 hours later at 8.2. Currently getting dialysis. Reports he had a BM 5 minutes ago and he does not know what stools have looked like. He denies abdominal pain. No nausea, vomiting. Per patient girlfriend SNF has been flipping [id number] between Coumadin and heparin secondary to patient INR. Assume last dose of Coumadin to be 01/18/2025. History of appendectomy and PEG placement. Allergies: Lisinopril Current Medications: Current Facility-Administered Medications: acetaminophen (Tylenol) tablet 1,000 mg, 1,000 mg, Oral, q8h PRN, Steve Lassiter MD, 1,000 mg at 01/19/25 1540 ampicillin-sulbactam (Unasyn) 3,000 mg in sodium chloride 0.9 % 100 mL IVPB (Add-[place]), 3,000 mg, IntraVENous, q12h, Steve Lassiter MD, [...] Anemia 12/30/2021 Paroxysmal A-fib ([facility]) ([facility]) 08/18/2023 HTN (hypertension) 12/01/2022 ESRD on hemodialysis ([facility]) ([facility]) 10/26/2019 IgA nephropathy determined by biopsy of kidney 10/26/2019 Diverticulosis 10/08/2023 Nonrheumatic aortic valve stenosis 10/08/2023 Calcification of abdominal aorta ([facility]) 10/08/2023 Missed vaccination due to patient refusal 10/08/2023 Tobacco abuse 10/08/2023 Alcohol use disorder in remission 10/08/2023 Atrial flutter, unspecified type ([facility]) 10/03/2024 RSV (acute bronchiolitis due to respiratory syncytial virus) 10/03/2024 Aortic stenosis 10/03/2024 Upper GI bleed 10/03/2024 S/P AVR 10/03/2024 Acute hypoxic respiratory failure ([facility]) 10/03/2024 Acute encephalopathy 10/03/2024 Pneumoperitoneum 10/03/2024 Gastric ulceration 2024 Severe malnutrition ([facility]) ([facility]) 01/19/2025 Pleural effusion 11/28/2024 Peritonitis due to fungus ([facility]) 11/30/2024 History of abdominal surgery 11/30/2024 Leg DVT (deep venous thromboembolism), acute, left ([facility]) 11/30/2024 Ischemic ulcer of toe of left foot, limited to breakdown of skin ([facility]) 11/30/2024 Tracheostomy dependence ([facility]) 11/30/2024 Leukocytosis 12/30/2024 Decubitus ulcer of sacral region, unstageable ([facility]) 12/30/2024 Pneumonia of both lungs due to methicillin susceptible Staphylococcus aureus (MSSA) ([facility]) 01/01/2025 Sacral osteomyelitis ([facility]) ([facility]) 01/03/2025 Acute respiratory failure with hypoxia ([facility]) [J96.01] 01/08/2025 Tracheostomy care ([facility]) [Z43.0] 01/08/2025 Pulmonary embolism (HCC) 01/08/2025 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 01/12/2025 Resolved Ambulatory Problems Diagnosis Date Noted Acute renal failure (ARF) (HCC) 10/19/2019 New onset a-fib (CMS/HCC) (HCC) 08/16/2023 Pulmonary embolism (HCC) 10/03/2024 Past Medical History: Diagnosis Date Hemodialysis [...] Patient Unable To Answer (12/01/2024) Received from [facility] Overall Financial Resource Strain (CARDIA) Difficulty of Paying Living Expenses: Patient unable to answer Food Insecurity: Patient Unable To Answer (12/01/2024) Received from [facility] Hunger Vital Sign Worried About Running Out of Food in the Last Year: Patient unable to answer Ran Out of Food in the Last Year: Patient unable to answer Transportation Needs: No Transportation Needs (01/18/2025) Received from [facility] Transportation Source Has lack of transportation kept you from medical appointments or from getting medications?: No Has lack of transportation kept you from meetings, work, or from getting things needed for daily living?: No Physical Activity: Not on file Stress: No Stress Concern Present (01/18/2025) Received from [facility] - Occupational Stress Questionnaire Feeling of Stress : Not at all Social Connections: Patient Unable To Answer (12/01/2024) Received from [facility] Social Connection and Isolation Panel [NHANES] Frequency of Communication with Friends and Family: Patient unable to answer Frequency of Social Gatherings with Friends and Family: Patient unable to answer Attends Confucianist Services: Patient unable to answer Active Member of Clubs or Organizations: Patient unable to answer Attends Club or Organization Meetings: Patient unable to answer Marital Status: Patient unable to answer Intimate Partner Violence: Patient Unable To Answer (11/28/2024) Received from [facility] Medical Domestic Abuse Assessment Do you feel safe in your relationships at home?: Unable to assess Physical Abuse: Unable to assess [facility] Domestic Abuse - Type of Abuse: Not on file [facility] Domestic Abuse - Time Frame: Not on file [facility] Domestic Abuse - Signs and Symptoms: Not on file Verbal Abuse: Unable to assess [facility] Domestic Abuse - Reported To: Not on file Housing Stability: Patient Unable To Answer (12/01/2024) Received from [facility] Medical Housing Stability Vital Sign Unable to [...] 10/12/24, Coumadin, last dose suspected 01/18/25 at [facility] Acute Right occipital ICH- 10/22/24 [...] 59 y.o. male with who presented to [facility] as transfer for trach dislodgment. [...] pt was receiving and tolerating while at [facility]. Per MNT protocol will initiate EN as above given prior consult for TF ordering and management. This result has been reviewed by Casandra Everett RD, LD on 01/20/25 at 7:18 AM. [facility] Consult Note Consults HPI The patient [...] Date Acute renal failure (ARF) ([facility]) 10/19/2019 Anemia 12/30/2021 Calcification of abdominal aorta ([facility]) 10/08/202309/[address] abd Diverticulosis 10/08/2023 ESRD on hemodialysis ([facility]) ([facility]) 10/26/2019 Hemodialysis patient ([facility]) ([facility]) HTN (hypertension) 12/01/2022 Hypertension IgA nephropathy IgA nephropathy determined by biopsy of kidney 10/26/2019 Missed vaccination due to patient refusal 10/08/2023 Has a number of non-scientific based beliefs which interfere with his understanding and acceptance of the medical benefit of vaccination. Nonrheumatic aortic valve stenosis 10/08/2023 Paroxysmal A-fib ([facility]) ([facility]) 08/18/2023 Tobacco abuse 10/08/2023 Social History Socioeconomic [...] Needs: No Transportation Needs (01/18/2025) Received from [facility] Transportation Source Has lack of transportation kept you from medical appointments or from getting medications?: No Has lack of transportation kept you from meetings, work, or from getting things needed for daily living?: No Physical Activity: Not on file Stress: No Stress Concern Present (01/18/2025) Received from [facility] - Occupational Stress Questionnaire Feeling of Stress : Not at all Social Connections: Patient Unable To Answer (12/01/2024) Received from [facility] Social Connection and Isolation Panel [NHANES] Frequency of Communication with Friends and Family: Patient unable to answer Frequency of Social Gatherings with Friends and Family: Patient unable to answer Attends Confucianist Services: Patient unable to answer Active Member of Clubs or Organizations: Patient unable to answer Attends Club or Organization Meetings: Patient unable to answer Marital Status: Patient unable to answer Intimate Partner Violence: Patient Unable To Answer (11/28/2024) Received from [facility] Domestic Abuse Assessment Do you feel safe in your relationships at home?: Unable to assess Physical Abuse: Unable to assess [facility] Domestic Abuse - Type of Abuse: Not on file [facility] Domestic Abuse - Time Frame: Not on file [facility] Domestic Abuse - Signs and Symptoms: Not on file Verbal Abuse: Unable to assess [facility] Domestic Abuse - Reported To: Not on file Housing Stability: Patient Unable To Answer (12/01/2024) Received from [facility] Housing Stability Vital Sign Unable to Pay [...] sodium chloride 0.9 % 100 mL IVPB (Add-[place]), 3,000 mg, IntraVENous, Daily, Steve Lassiter MD [...] airway management needs. Maintain NPO status per CREDIT CONTROL CLERK recommendations until airway stabilization; consider modification of HD orders if NPO persists beyond 24-48 hours impacting volume/nutrition Please message me through EPIC chat with any questions or concerns. Wellington Nicole MD 01/19/2025 4:13 PM [facility] [address] [place] [address], [address] [place] [address] Office: [phone] Associated Order(s): IP CONSULT TO DIETITIAN; IP [...] EN only as sole source of nutrition. CREDIT CONTROL CLERK was following while pt was at [facility]. CREDIT CONTROL CLERK consulted inpatient and recommending strict NPO. RD [...] pt was receiving and tolerating while at [facility]. Will monitor tolerance of nutrition as initiated and increased to goal. Will continue to monitor CREDIT CONTROL CLERK in the event that oral diet can [...] Accumulation: No significant fluid accumulation (per flowsheets) Retail Banker Strength: Not Performed Nutrition Assessment: pt with [...] Prostat, pt was stabilized and transferred to [facility] for ongoing care, vent liberation and rehab, while at [facility] RD was following and pt was receiving Nepro @ 50mls/hr, pt was discharged from [facility] to SNF on 01/18/25, pt now presented to [facility] ED on 01/19/25 from [facility] ([facility]) due to trach dislodgement, pt stated he was trying to disconnect his vent to transfer to another room but accidentally pulled out his tracheostomy, event happened approximately 45 minutes before ED arrival, ED attempted to place tracheostomy tube back but was unsuccessful thus decision was made to transfer pt to [facility] ICU for further airway management [...] states he has been like this since [facility], pt was transferred to ICU for further management, Nephrology and wound care consults pending, CREDIT CONTROL CLERK was also consulted and recommending strict NPO. In terms of nutrition pt remains NPO at this time, RD spoke with pt in room, no family/visitors present, pt states that he was only receiving nutrition via PEG QUALITY ASSURANCE CALIBRATOR, states his goals are to 'eat ice [...] Pt presented from SNF, prolonged admit at [facility] 10/03-11/28/24, discharged to [facility] and recently transferred to [facility] Orientation Level: Oriented to situation, Oriented to [...] bedscale, 10/31: 200#, 11/28: 161#, 01/18: 142#) [place] Body Weight (lbs) (Calculated): 166 lbs [place] Body Weight (Kg) (Calculated): 75 kg % [place] Body Weight (Calculated): 78.2 % BMI (kg/m2) [...] Nutrition Dana El RD Contact: available via Socogame or *[phone] Associated Order(s): INPATIENT CONSULT TO WOUND CARE PROVIDERS Images from the original note were not included. [facility] Wound Care CONSULT Note Jun Snyder [...] diverticulosis, IgA nephropathy, severe that presented to [facility] ED from a facility due to trach dislodgement. Wound Care consulted for Pressure Injury sacrum and Ischemic ulcers to left toes" PAST MEDICAL HISTORY Past Medical History: Diagnosis Date Acute renal failure (ARF) ([facility]) 10/19/2019 Anemia 12/30/2021 Calcification of abdominal aorta ([facility]) 10/08/202309/[address] abd Diverticulosis 10/08/2023 ESRD on hemodialysis ([facility]) ([facility]) 10/26/2019 Hemodialysis patient ([facility]) ([facility]) HTN (hypertension) 12/01/2022 Hypertension IgA nephropathy IgA nephropathy determined by biopsy of kidney 10/26/2019 Missed vaccination due to patient refusal 10/08/2023 Has a number of non-scientific based beliefs which interfere with his understanding and acceptance of the medical benefit of vaccination. Nonrheumatic aortic valve stenosis 10/08/2023 Paroxysmal A-fib ([facility]) ([facility]) 08/18/2023 Tobacco abuse 10/08/2023 PAST SURGICAL HISTORY Past Surgical History: Procedure Laterality Date APPENDECTOMY CARDIAC CATHETERIZATION N/A 10/09/2024 Performed by Bob Watson MD at [facility] Cardiac Cath/EP Lab CARDIAC CATHETERIZATION Bilateral 11/01/2024 Performed by Bob Watson MD at [facility] Cardiac Cath/EP Lab CARDIAC CATHETERIZATION N/A 11/01/2024 Performed by Bob Watson MD at [facility] Cardiac Cath/EP Lab FISTULAGRAM (HISTORICAL) Left 09/15/2021 LEFT UPPER ARM HX AV FISTULA CREATION IR EMBOLIZATION 10/14/2024 IR EMBOLIZATION 10/14/2024 [facility] SPECIAL PROCEDURES IR FISTULAGRAM 08/07/2022 [...] Medication Sig Dispense Refill epoetin rowan-epbx (Retacrit) 28406 UNIT/ML injection Inject 0.79 mL (7,900 Units) [...] apply Betadine and allow to dry, leave LIVESTOCK HAULIER daily and PRN -Recommend PVRs for circulation check Nutritional support Wound Care to follow Recommend to follow up at [facility] Outpatient wound care center after hospital [...] 4:05 PM EDT documented in this encounter [facility] 01-19-2025 History and physical note Images [...] diverticulosis, IgA nephropathy, severe that presented to [facility] ED from a facility due to trach dislodgement. Per patient, was trying to disconnect his vent to transfer to another room but accidentally pulled out his tracheostomy. This event happened approximately 45 minutes before ED arrival. ED attempted to place tracheostomy tube back but were unsuccessful. Decision was made to transfer patient to [facility] ICU for further airway management [...] Date Acute renal failure (ARF) ([facility]) 10/19/2019 Anemia 12/30/2021 Calcification of abdominal aorta ([facility]) 10/08/202309/[address] abd Diverticulosis 10/08/2023 ESRD on hemodialysis ([facility]) ([facility]) 10/26/2019 Hemodialysis patient ([facility]) ([facility]) HTN (hypertension) 12/01/2022 Hypertension IgA nephropathy IgA nephropathy determined by biopsy of kidney 10/26/2019 Missed vaccination due to patient refusal 10/08/2023 Has a number of non-scientific based beliefs which interfere with his understanding and acceptance of the medical benefit of vaccination. Nonrheumatic aortic valve stenosis 10/08/2023 Paroxysmal A-fib ([facility]) ([facility]) 08/18/2023 Tobacco abuse 10/08/2023 Past Surgical History: Procedure Laterality Date APPENDECTOMY CARDIAC CATHETERIZATION N/A 10/09/2024 Performed by Bob Watson MD at [facility] Cardiac Cath/EP Lab CARDIAC CATHETERIZATION Bilateral 11/01/2024 Performed by Bob Watson MD at [facility] Cardiac Cath/EP Lab CARDIAC CATHETERIZATION N/A 11/01/2024 Performed by Bob Watson MD at [facility] Cardiac Cath/EP Lab FISTULAGRAM (HISTORICAL) Left 09/15/2021 LEFT UPPER ARM HX AV FISTULA CREATION IR EMBOLIZATION 10/14/2024 IR EMBOLIZATION 10/14/2024 [facility] SPECIAL PROCEDURES IR FISTULAGRAM 08/07/2022 [...] Patient Unable To Answer (12/01/2024) Received from [facility] Overall Financial Resource Strain (CARDIA) Difficulty of Paying Living Expenses: Patient unable to answer Food Insecurity: Patient Unable To Answer (12/01/2024) Received from [facility] Hunger Vital Sign Worried About Running Out of Food in the Last Year: Patient unable to answer Ran Out of Food in the Last Year: Patient unable to answer Transportation Needs: No Transportation Needs (01/18/2025) Received from [facility] Transportation Source Has lack of transportation kept you from medical appointments or from getting medications?: No Has lack of transportation kept you from meetings, work, or from getting things needed for daily living?: No Physical Activity: Not on file Stress: No Stress Concern Present (01/18/2025) Received from [facility] - Occupational Stress Questionnaire Feeling of Stress : Not at all Social Connections: Patient Unable To Answer (12/01/2024) Received from [facility] Social Connection and Isolation Panel [NHANES] Frequency of Communication with Friends and Family: Patient unable to answer Frequency of Social Gatherings with Friends and Family: Patient unable to answer Attends Confucianist Services: Patient unable to answer Active Member of Clubs or Organizations: Patient unable to answer Attends Club or Organization Meetings: Patient unable to answer Marital Status: Patient unable to answer Intimate Partner Violence: Patient Unable To Answer (11/28/2024) Received from [facility] Domestic Abuse Assessment Do you feel safe in your relationships at home?: Unable to assess Physical Abuse: Unable to assess [facility] Domestic Abuse - Type of Abuse: Not on file [facility] Domestic Abuse - Time Frame: Not on file [facility] Domestic Abuse - Signs and Symptoms: Not on file Verbal Abuse: Unable to assess [facility] Domestic Abuse - Reported To: Not [...] Date Taking? Authorizing Provider epoetin rowan-epbx (Retacrit) 66219 UNIT/ML injection Inject 0.79 mL (7,900 Units) [...] Normal [] Scar/Lesion/Mass Inspection of teeth/lips/gums Dentition: [][place] Teeth []Dentures Lips/Gums: []Intact []Lesion Present Mucosa: [][place] []Moist []Dry Neck: External Appearance Tracheostomy hole [...] 18.5* ABGs: No results for input(s): "PHART", "PWG3QHO", "PO2ART", "USI1WLD", "SO2ART", "[id number]" in the last 72 hours. Lactic Acid: [...] and Plan: Principal Problem: Complication of tracheostomy (CMS/[facility]) ([facility]) Assessment: Trach dislodgement Chest pain ESRD Chronic [...] PM EDT I have personally performed a [id number]-ka-buya diagnostic evaluation on this patient on date [...] to have bile peritonitis 11/28/24: transferred to [facility]. He continued on HD at [facility]. Reportedly had ongoing issues with delirium according to his partner, Toma who was at bedside and provided history. Developed severe sacral ulcer and sacral ostomyelitis at [facility]. He was progressing with CREDIT CONTROL CLERK and using a PMV. Has not done any capping trials. Was transferred to a facility in [place]; there he inadvertently dislodged his tracheostomy. He initially presented to the [facility] emergency dept. He was transferred to [facility] in case of emergetn airway compromise. Assessment: Trach dislodgement, high risk of respiratory failure Chronic respiratory failure due to failure of airway protection ESRD Sacral osteomyelitis s/p AVR Full Code Plan: Admit to MICU Close monitorign for airway compromise Restart abx for osteomyelitis FRANKLIN MORAN Critical Care Time: 33 minutes Total critical care time caring for this patient with life threatening, unstable organ failure, including direct patient contact, management of life support systems, review of data including imaging and labs, discussions with other team members and physicians, excluding procedures. Electronically signed by Bruce Nguyen MD documented in this encounter [facility] 01-19-2025 Emergency department Note EMERGENCY DEPARTMENT [...] presents to the emergency department From senior living facility for accidental dislodgment of his tracheostomy [...] hypertension, and currently being treated at senior living facility with IV antibiotics for multiple infected [...] Date Acute renal failure (ARF) ([facility]) 10/19/2019 Anemia 12/30/2021 Calcification of abdominal aorta ([facility]) 10/08/202309/[address] abd Diverticulosis 10/08/2023 ESRD on hemodialysis ([facility]) ([facility]) 10/26/2019 Hemodialysis patient ([facility]) ([facility]) HTN (hypertension) 12/01/2022 Hypertension IgA nephropathy IgA nephropathy determined by biopsy of kidney 10/26/2019 Missed vaccination due to patient refusal 10/08/2023 Has a number of non-scientific based beliefs which interfere with his understanding and acceptance of the medical benefit of vaccination. Nonrheumatic aortic valve stenosis 10/08/2023 Paroxysmal A-fib ([facility]) ([facility]) 08/18/2023 Tobacco abuse 10/08/2023 SURGICAL HISTORY Past Surgical History: Procedure Laterality Date APPENDECTOMY CARDIAC CATHETERIZATION N/A 10/09/2024 Performed by Bob Watson MD at [facility] Cardiac Cath/EP Lab CARDIAC CATHETERIZATION Bilateral 11/01/2024 Performed by Bob Watson MD at [facility] Cardiac Cath/EP Lab CARDIAC CATHETERIZATION N/A 11/01/2024 Performed by Bob Watson MD at [facility] Cardiac Cath/EP Lab FISTULAGRAM (HISTORICAL) Left 09/15/2021 LEFT UPPER ARM HX AV FISTULA CREATION IR EMBOLIZATION 10/14/2024 IR EMBOLIZATION 10/14/2024 [facility] SPECIAL PROCEDURES IR FISTULAGRAM 08/07/2022 IR FISTULAGRAM 08/07/2022 [facility] IR IMAGING TONSILLECTOMY (HISTORICAL) CURRENT MEDICATIONS Previous Medications EPOETIN ROWAN-EPBX (RETACRIT) 48462 UNIT/ML INJECTION Inject 0.79 mL (7,900 Units) [...] Patient Unable To Answer (12/01/2024) Received from [facility] Overall Financial Resource Strain (CARDIA) Difficulty of Paying Living Expenses: Patient unable to answer Food Insecurity: Patient Unable To Answer (12/01/2024) Received from [facility] Hunger Vital Sign Worried About Running Out of Food in the Last Year: Patient unable to answer Ran Out of Food in the Last Year: Patient unable to answer Transportation Needs: No Transportation Needs (01/18/2025) Received from [facility] Transportation Source Has lack of transportation kept you from medical appointments or from getting medications?: No Has lack of transportation kept you from meetings, work, or from getting things needed for daily living?: No Stress: No Stress Concern Present (01/18/2025) Received from [facility] [employer] [facility] [employer] [facility] - Occupational Stress Questionnaire Feeling of Stress : Not at all Social Connections: Patient Unable To Answer (12/01/2024) Received from [facility] Medical Social Connection and Isolation Panel [NHANES] Frequency of Communication with Friends and Family: Patient unable to answer Frequency of Social Gatherings with Friends and Family: Patient unable to answer Attends Confucianist Services: Patient unable to answer Active Member [...] nursing note reviewed. Exam conducted with a range scientist present. Constitutional: General: He is not in [...] dislodgment of his tracheostomy tube at senior living facility as described in the HPI. Reportedly [...] necessary. Dr. Ponce recommended ICU admission to [facility] for observation with possible replacement tracheostomy if needed. ICU at [facility] was consulted and I spoke with Dr. Nguyen regarding admission to their service. He agrees with this indication and patient admitted to [facility] ICU. Diagnoses as of 01/19/25299 Complication of tracheostomy ([facility]) ([facility]) Medications - No data to display REVAL: [...] No FINAL IMPRESSION 1. Complication of tracheostomy ([facility]) ([facility]) DISPOSITION Admit 01/19/2025 03:00:18 AM PATIENT REFERRED [...] MD 01/19/25300 Pt arrived Via EMS from [facility] [place]. Pt removed his trach which he is typically on 5L. 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 He is NPO and receiving IV antibiotics for the results of his blood cultures. Pt was recently transferred to [facility] from [facility]. Pt arrived with a pressure of 88/52 and 96% on room air. RT and MD at bedside upon arrival. documented in this encounter [facility] 01-18-2025 History of Presen t illness Narrative [facility] documented in this encounter [facility] 01-17-2025 History of Presen t illness Narrative Seen at [facility] documented in this encounter [facility] 01-17-2025 History of Presen t illness Narrative [facility] documented in this encounter [facility] 01-16-2025 History of Presen t illness Narrative [facility] documented in this encounter [facility] 01-15-2025 History of Presen t illness Narrative Seen at [facility] documented in this encounter [facility] 01-15-2025 History of Presen t illness Narrative [facility] documented in this encounter [facility] 01-14-2025 History of Presen t illness Narrative [facility] documented in this encounter [facility] 01-12-2025 History of Presen t illness Narrative [facility] documented in this encounter [facility] 01-12-2025 History of Presen t illness Narrative [facility]en at [facility] documented in this encounter [facility] 01-11-2025 History of Presen t illness Narrative [facility] documented in this encounter [facility] 01-11-2025 History of Presen t illness Narrative [facility]en at [facility] documented in this encounter [facility] 01-10-2025 History of Presen t illness Narrative [facility] documented in this encounter [facility] 01-09-2025 History of Presen t illness N[facility]ative [facility] documented in this encounter [facility] 01-09-2025 History of Presen t illness Narrative [facility]en at [facility] documented in this encounter [facility] 01-08-2025 History of Presen t illness Narrative [facility] documented in this encounter [facility] 01-08-2025 History of Presen t illness Narrative Seen at [facility] documented in this encounter [facility] 01-05-2025 History of Presen t illness Narrative Patient seen by me at [facility]. Documentation including history, exam and plan documented in [facility]. This encounter is for billing only. documented in this encounter [facility] 01-05-2025 History of Presen t illness Narrative [facility] 01/05 documented in this encounter [facility] 01-04-2025 History of Presen t illness Narrative Patient seen by me at [facility]. Documentation including history, exam and plan documented in [facility]. This encounter is for billing only. documented in this encounter [facility] 01-04-2025 History of Presen t illness Narrative [facility] 01/04 documented in this encounter [facility] 01-03-2025 History of Presen t illness Narrative Patient seen by me at [facility]. Documentation including history, exam and plan documented in [facility]. This encounter is for billing only. documented in this encounter [facility] 01-03-2025 History of Presen t illness Narrative Pt seen at [facility]. Complete documentation under [facility]'s EMR. documented in this encounter [facility] 01-02-2025 History of Presen t illness Narrative Pt seen at [facility]. Complete documentation under [facility]'s EMR. documented in this encounter [facility] 01-02-2025 History of Presen t illness Narrative Patient seen by me at [facility]. Documentation including history, exam and plan documented in [facility] EMR. This encounter is for billing only. documented in this encounter [facility] 01-01-2025 History of Presen t illness Narrative Pt seen at [facility]. Complete documentation under [facility]'s EMR. documented in this encounter [facility] 01-01-2025 History of Presen t illness Narrative Patient seen by me at [facility]. Documentation including history, exam and plan documented in [facility] EMR. This encounter is for billing only. documented in this encounter [facility] 01-01-2025 History of Presen t illness Narrative Subsequent visit today at [facility] documented in this encounter [facility] 12-30-2024 History of Presen t illness Narrative Pt seen at [facility]. Complete documentation under [facility]'s EMR. documented in this encounter [facility] 12-28-2024 History of Presen t illness Narrative Patient seen by me at [facility]. Complete documentation including history with assessment and plan were documented in [facility] EMR. This encounter is for billing only. documented in this encounter [facility] 12-27-2024 History of Presen t illness Narrative Patient seen by me at [facility]. Complete documentation including history with assessment and plan were documented in [facility] EMR. This encounter is for billing only. documented in this encounter [facility] 12-26-2024 History of Presen t illness Narrative Patient seen by me at [facility]. Complete documentation including history with assessment and plan were documented in [facility] EMR. This encounter is for billing only. documented in this encounter [facility] 12-22-2024 History of Presen t illness Narrative Patient seen by hi at [facility] in [place]. Complete documentation including history with assessment and plan were documented in [facility] EMR. This encounter is for billing only. documented in this encounter [facility] 12-21-2024 History of Presen t illness Narrative Patient seen by me at [facility] in [place]. Complete documentation including history with assessment and plan were documented in [facility] EMR. This encounter is for billing only. documented in this encounter [facility] 12-20-2024 History of Presen t illness Narrative Patient seen by me at [facility] in [place]. Complete documentation including history with assessment and plan were documented in [facility] EMR. This encounter is for billing only. documented in this encounter [facility] 12-19-2024 History of Presen t illness Narrative Patient seen by me at [facility] in [place]. Complete documentation including history with assessment and plan were documented in [facility] EMR. This encounter is for billing only. documented in this encounter [facility] 12-18-2024 History of Presen t illness Narrative Patient seen by me at [facility] in [place]. Complete documentation including history with assessment and plan were documented in [facility] EMR. This encounter is for billing only. documented in this encounter [facility] 12-15-2024 History of Presen t illness Narrative [facility] documented in this encounter [facility] 12-14-2024 History of Presen t illness Narrative [facility] documented in this encounter [facility] 12-14-2024 Telephone encount er Note Patient is still at [facility]. I spoke to Karla, window caser, and she stated that patient has a tentative discharge date on 12/25. He will be going to a facility after that. Karla is not sure which one. I will check back with her closer to that date. [facility] 12-14-2024 Miscellaneous Notes Formattin g of this note might be different from the original. Patient is still at [facility]. I spoke to Karla, window caser, and she stated that patient has a tentative discharge date on 12/25. He will be going to a facility after that. Karla is not sure which one. I will check back with her closer to that date. Called and spoke with patients son to discuss scheduling hospital follow up appointment. Omar advised me that the patient will be in the hospital 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 designer as a lot happened while he was hospitalized. Patient does not wish to schedule at this time. Thanks Attempted to call patient to schedule hospital follow up. Patients phone is restricted. Unable to lvm. Sent [employer] message. Thanks Will hold to contact patient s/p discharge. Thanks Pt remains admitted at this time. GI staff to contact pt for scheduling OV s/p discharge. Patient needs close follow up for repeat EGD for duodenal ulcer, had IR embolization of GDA. Currently in ICU. Thanks. documented in this encounter [facility] 12-13-2024 History of Presen t illness Narrative [facility] documented in this encounter [facility] 12-13-2024 Telephone encount er Note Called and spoke with patients son to discuss scheduling hospital follow up appointment. Omar advised me that the patient will be in the hospital 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 designer as a lot happened while he was hospitalized. Patient does not wish to schedule at this time. Thanks [facility] 12-13-2024 Miscellaneous Notes Formattin g of this note might be different from the original. Called and spoke with patients son to discuss scheduling hospital follow up appointment. Omar advised me that the patient will be in the hospital 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 designer as a lot happened while he was hospitalized. Patient does not wish to schedule at this time. Thanks Attempted to call patient to schedule hospital follow up. Patients phone is restricted. Unable to lvm. Sent [employer] message. Thanks Will hold to contact patient s/p discharge. Thanks Pt remains admitted at this time. GI staff to contact pt for scheduling OV s/p discharge. Patient needs close follow up for repeat EGD for duodenal ulcer, had IR embolization of GDA. Currently in ICU. Thanks. documented in this encounter [facility] 12-12-2024 History of Presen t illness Narrative [facility] documented in this encounter [facility] 12-11-2024 History of Presen t illness Narrative Seen at [facility] 12/11/24 documented in this encounter [facility] 12-11-2024 History of Presen t illness Narrative [facility] documented in this encounter [facility] 12-11-2024 Telephone encount er Note Attempted to call patient to schedule hospital follow up. Patients phone is restricted. Unable to lvm. Sent MyChart message. Thanks [facility] 12-11-2024 Miscellaneous Notes Formattin g of [...] in ICU. Thanks. documented in this encounter [facility] 12-07-2024 History of Presen t illness Narrative [facility] documented in this encounter [facility] 12-07-2024 History of Presen t illness Narrative [facility] 12/07/24 documented in this encounter [facility] 12-06-2024 History of Presen t illness Narrative [facility] documented in this encounter [facility] 12-06-2024 History of Presen t illness Narrative [facility] 12/06/24 documented in this encounter [facility] 12-05-2024 History of Presen t illness Narrative [facility] documented in this encounter [facility] 12-04-2024 History of Presen t illness Narrative Follow-up visit today at [facility] documented in this encounter [facility] 12-04-2024 History of Presen t illness Narrative [facility] 12/04/24 documented in this encounter [facility] 12-01-2024 History of Presen t illness Narrative [facility] 12/01/24 documented in this encounter [facility] 12-01-2024 History of Presen t illness Narrative I did a level 4 consult on this patient [facility]. In reviewing Dr. Garcia's note she noted acute systolic right heart failure related to and accompanied by pulmonary hypertension. She noted the need for midodrine. Dr. Chow waited on atrial flutter and atrial tachycardia. He was put on amiodarone and attempt was YG cardioversion, unsuccessful. The last electrocardiogram done at the [facility] showed atrial flutter. documented in this encounter [facility] 12-01-2024 History of Presen t illness Narrative [facility] documented in this encounter [facility] 11-30-2024 History of Presen t illness Narrative [facility] documented in this encounter [facility] 11-30-2024 History of Presen t illness Narrative [facility] 11/30/24 documented in this encounter [facility] 11-29-2024 History of Presen t illness Narrative [facility] 11/29/24 documented in this encounter [facility] 11-29-2024 History of Presen t illness Narrative [facility] documented in this encounter [facility] 11-28-2024 Telephone encount er Note Name of Caller: Herminia Contact Physician requesting Consult: Huseyin Caruso APRN Patient Location (facility name, room, bed number): [facility] specialty [facility], [address] Patient Diagnosis/Reason for Consult:SOB Provider being paged: Dr Nathan Time page was sent: [phone] Department of provider being paged: [facility] Page Content: routine consult requested. Message sent via Secure Chat [facility] 11-28-2024 Miscellaneous Notes Formattin g of this note might be different from the original. Name of Caller: Herminia Contact Physician requesting Consult: Huseyin Caruso APRN Patient Location (facility name, room, bed number): [facility], 116 Patient Diagnosis/Reason for Consult:SOB Provider being paged: Dr Nathan Time page was sent: [phone] Department of provider being paged: [facility] Page Content: routine consult requested. Message sent via Secure Chat documented in this encounter [facility] 10-17-2024 Telephone encount er Note Will hold to contact patient s/p discharge. Thanks [facility] 10-17-2024 Miscellaneous Notes Formattin g of this note might be different from the original. Will hold to contact patient s/p discharge. Thanks Pt remains admitted at this time. GI staff to contact pt for scheduling OV s/p discharge. Patient needs close follow up for repeat EGD for duodenal ulcer, had IR embolization of GDA. Currently in ICU. Thanks. documented in this encounter [facility] 10-17-2024 Miscellaneous Notes Formattin g of this note might be different from the original. Will hold to contact patient s/p discharge. Thanks Pt remains admitted at this time. GI staff to contact pt for scheduling OV s/p discharge. Patient needs close follow up for repeat EGD for duodenal ulcer, had IR embolization of GDA. Currently in ICU. Thanks. documented in this encounter [facility] [employer] 10-17-2024 Telephone encount er Note Pt remains admitted at this time. GI staff to contact pt for scheduling OV s/p discharge. [facility] [employer] 10-16-2024 Telephone encount er Note Patient needs close follow up for repeat EGD for duodenal ulcer, had IR embolization of GDA. Currently in ICU. Thanks. [employer] Phone: 10-16-2024 Miscellaneous Notes Formattin g of this note might be different from the original. Patient needs close follow up for repeat EGD for duodenal ulcer, had IR embolization of GDA. Currently in ICU. Thanks. documented in this encounter [facility] [employer] 10-12-2024 Note Formatting of this n ote is different from the original. Patient: Jair Snyder Procedure Summary Date: 10/12/24 Room / Location: [facility] Operating Room Anesthesia Start: 725 Anesthesia [...] once all PACU criteria has been met. [facility] 10-12-2024 Miscellaneous Notes Formattin g of this note is different from the original. Patient: Jair Snyder Procedure Summary Date: 10/12/24 Room / Location: [facility] Operating Room Anesthesia Start: 725 Anesthesia [...] has been met. documented in this encounter [facility] 10-12-2024 Anesthesiology Postoperative evaluation and management note Patient: Jair Snyder Procedure Summary Date: 10/12/24 Room / Location: [facility] Operating Room Anesthesia Start: 725 Anesthesia [...] opportunity for questions and acknowledgement of understanding. [facility] Phone: 10-12-2024 Surgical operatio n note Patient: Jair Snyder Procedure Summary Date: 10/12/24 Room / Location: [facility] Operating Room Anesthesia Start: 725 Anesthesia [...] during the procedure: no complications. Staffing Performed: VENEER TAPER Resident/VENEER TAPER: Rudolph German CRNA Associated Order(s): Airway Airway Date/Time: 10/12/2024 7:38 AM Urgency: scheduled Airway not difficult General Information and Staff Patient location during procedure: Procedural Anesthesiologist: Vincent Wilson MD Resident/VENEER TAPER: Rudolph German CRNA Performed: anesthesiologist Indications and [...] procedure well with no complications. Staffing Performed: VENEER TAPER Resident/VENEER TAPER: Rudolph German CRNA Patient: Jair Snyder Procedure Information Date/Time: 10/12/24 0730 Procedures: AORTIC VALVE REPAIR, POSSIBLE REPLACEMENT (Chest) - 7:30 am, 5 hours TRICUSPID REPLACEMENT WITH RING (Chest) TRANSESOPHAGEAL ECHOCARDIOGRAM Location: [facility] Operating Room Surgeons: Luciano Montemayor MD [...] (CMS/HCC) (HCC) No date: Hemodialysis patient (CMS/HCC) ([facility]) 12/01/2022: HTN (hypertension) No date: Hypertension No date: IgA nephropathy 10/26/2019: IgA nephropathy determined by biopsy of kidney 10/08/2023: Missed vaccination due to patient refusal Comment: Has a number of non-scientific based beliefs which interfere with his understanding and acceptance of the medical benefit of vaccination. 10/08/2023: Nonrheumatic aortic valve stenosis 08/18/2023: Paroxysmal A-fib ([facility]) ([facility]) 10/08/2023: Tobacco abuse Past Surgical History: Past Surgical History: No date: APPENDECTOMY 10/09/2024: CARDIAC CATHETERIZATION; N/A Comment: Performed by Bob Watson MD at [facility] Cardiac Cath/EP Lab 09/15/2021: FISTULAGRAM (HISTORICAL); Left Comment: LEFT UPPER ARM No date: HX AV FISTULA CREATION 08/07/2022: IR FISTULAGRAM Comment: IR FISTULAGRAM 08/07/2022 [facility] No date: TONSILLECTOMY (HISTORICAL) Social [...] Additional Equipment Requests documented in this encounter [facility] [employer] 10-12-2024 Procedure anesthe jaki Narrative Procedure Name [...] Per order 10/12/24 0737 by Rudolph German, VENEER TAPER 10/16/24 0930 by Wanda Hays RN ETT [...] Removal Time: 1400 10/12/24 0738 by Rudolph German, DECLAN 10/13/24 1400 by Rj De La Cruz RN Urethral Catheter Placement Date: 10/12/24; Placement Time: 0753; Inserted by: FA; Type: Temperature probe; Balloon Size: 10 mL; Urine Returned: Yes; Removal Date: 10/14/24; Removal Time: 1048; Removal Reason: Per order 10/12/24 0753 by Tracie Pacheco RN 10/14/24 1048 by Hunter Dove RN [id number] Anesthesiology procedure note* Anesthesia Procedure Notes - [...] during the procedure: no complications. Staffing Performed: VENEER TAPER Resident/VENEER TAPER: Rudolph German CRNA [facility]01-16-2025 Anesthesiology procedure note* Anesthesia Procedure Notes - Rudolph German CRNA - 10/12/2024 7:49 [facility] Order[facility]s): Airway Airway Date/Time: 10/12/2024 7:38 AM Urgency: scheduled Airway not difficult General Information and Staff Patient location during procedure: Procedural Anesthesiologist: Vincent Wilson MD Resident/VENEER TAPER: Rudolph German CRNA Performed: anesthesiologist Indications and [...] 21 Number of attempts at approach: 1 [facility]01-16-2025 Anesthesiology procedure note* Anesthesia Procedure Notes [...] procedure well with no complications. Staffing Performed: VENEER TAPER Resident/VENEER TAPER: Rudolph German CRNA [facility]01-16-2025 Anesthesiology Preoperative evaluation and management note* Anesthesia Preprocedure Evaluation - Vincent Wilson MD - 10/12/2024 6:56 AM EST Patient: Jair Snyder Procedure Information Date/Time: 10/12/24 0730 Procedures: AORTIC VALVE REPAIR, POSSIBLE REPLACEMENT (Chest) - 7:30 am, 5 hours TRICUSPID REPLACEMENT WITH RING (Chest) TRANSESOPHAGEAL ECHOCARDIOGRAM Location: [facility] Operating Room Surgeons: Luciano Montemayor MD [...] 10/08/2023: Calcification of abdominal aorta ([facility]) Comment: 09/[address] abd 10/08/2023: Diverticulosis 10/26/2019: ESRD on hemodialysis ([facility] ([facility]) No date: Hemodialysis patient ([facility]) ([facility]) 12/01/2022: HTN (hypertension) No date: Hypertension No date: IgA nephropathy 10/26/2019: IgA nephropathy determined by biopsy of kidney 10/08/2023: Missed vaccination due to patient refusal Comment: Has a number of non-scientific based beliefs which interfere with his understanding and acceptance of the medical benefit of vaccination. 10/08/2023: Nonrheumatic aortic valve stenosis 08/18/2023: Paroxysmal A-fib ([facility] ([facility]) 10/08/2023: Tobacco abuse Past Surgical History: Past Surgical History: No date: APPENDECTOMY 10/09/2024: CARDIAC CATHETERIZATION; N/A Comment: Performed by Bob Watson MD at [facility] Cardiac Cath/EP Lab 09/15/2021: FISTULAGRAM (HISTORICAL); Left Comment: LEFT UPPER ARM No date: HX AV FISTULA CREATION 08/07/2022: IR FISTULAGRAM Comment: IR FISTULAGRAM 08/07/2022 [facility] IR IMAGING No date: TONSILLECTOMY (HISTORICAL) Social [...] 10:45 AM Equipment Requests: Additional Equipment Requests [facility]cu[facility] History of Present illness Narrative* Jr Shah MD - 08/28/2024 3:15 PM EST Images from the original note were not included. [facility] - [address] [place] [id number] Dept: [phone] Dept Visit type: Established : 1965 Reason [...] months (around 02/26/2025) for [facility] f/u in [place]. Subjective Afib after admission 07/2023. ESRD on [...] On theother hand, a mechanical valve with 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 designer OAC carries its own risks with a patient who gets dialysis. Has not followed up in a year. Today: HD on Sat. He is oliguric. Afib Sxs: Has [...] none/quit. Pt would like to f/u in [place]. Was concerned about location and level of [...] Date Acute renal failure (ARF) ([facility]) 10/19/2019 Anemia 12/30/2021 Calcification of abdominal aorta ([facility]) 10/08/202309/[address] abd Diverticulosis 10/08/2023 ESRD on hemodialysis ([facility]) ([facility]) 10/26/2019 Hemodialysis patient ([facility]) ([facility]) HTN (hypertension) 12/01/2022 Hypertension IgA nephropathy IgA nephropathy determined by biopsy of kidney 10/26/2019 Missed vaccination due to patient refusal 10/08/2023 Has a number of non-scientific based beliefs which interfere with his understanding and acceptance of the medical benefit of vaccination. Nonrheumatic aortic valve stenosis 10/08/2023 Paroxysmal A-fib ([facility]) ([facility]) 08/18/2023 Tobacco abuse 10/08/2023 Social History Tobacco [...] medical care for thiscondition(s). documented [facility]12-02-2024 Evaluation + Plan note* Assessment & Plan Note - Jr Shah MD - 08/28/2024 1:07 PM EST Associated Problem(s): Alcohol use disorder in remission Says he is a "functioning alcoholic". Stopping drinking in 2020. -Recommend stay quit due to addiction and risk of bleeding. [facility] HospitalYhcgcw47-23-2134 Evaluation + Plan note* Assessment & Plan Note - rJ Shah MD - 08/28/2024 1:07 PM ESTAssociated Problem(s): Tobacco abuse 1 ppd. Recommend complete cessation. -Recommend CT lung cancer screening. [facility] HospitalUzesvc16-57-4082 Miscellaneous Notes* Assessment & Plan Note - [...] ablation, watchman device, etc. documented in this [facility]12-02-2024 Evaluation + Plan note* Assessment & [...] which will need to be carefully considered. [id number] Evaluation + Plan note* Assessment & Plan Note - Jr Shah MD - 08/28/2024 1:01 PM ESTAssociated Problem(s): Paroxysmal A-fib (CMS/HCC) ([facility]) Paroxysmal. Infrequent episodes that he feels, does [...] see EP, discuss ablation, watchman device, etc. [id number] History of Present illness Narrative* Alan Barroso RN - 05/10/2024 2:38 PM EDT Dialysis center status inquiry form received from [facility]. Form completed and faxed back to ELIA Marin at [phone]. Patient was called 04/12/2024 but voicemail was full, letter was sent to please call the office at [phone] to complete intake. Referral was closed. Please have patient call the office to complete intake. JHONY Meier RN May 10, 2024 2:41 PM [facility] Telephone encounter Note * Telephone Encounter - Lanie Luis - 04/12/2024 11:49 AM EDT I called patient to start the kidney referral intake process. Voicemail is full, sent a letter out. [facility]anie [facility]07-17-2024 Miscellaneous Notes* Telephone Encounter - Lanie Luis - 04/12/2024 11:49 AM EDT I called patient to start the kidney referral intake process. Voicemail is full, sent a letter out. Lanie documented in this [facility]Grand [facility] Telephone encounter Note * Telephone Encounter - Tracie Chin RN - 02/14/2024 10:23 AM EDT Called LM with pt with central scheduling number. Advised to call to schedule echo. [facility] HospitalZyfyyf36-77-1256 Miscellaneous Notes* Telephone Encounter - Tracie Chin RN - 02/14/2024 10:23 AM EDT Called LM with pt with central scheduling number. Advised to call to schedule echo. * Telephone Encounter - Dorcas Pabon - 02/12/2024 10:28 AM EDT Unable to contact patient - called and lvm and sent mychart message for echo Deferred documented in this [facility]05-18-2024 Telephone encounter Note* Telephone Encounter - Dorcas Pabon - 02/12/2024 10:28 AM EDT Unable to contact patient - called and lvm and sent mychart message for echo Deferred [facility] HospitalMgdwfz60-94-6799 Miscellaneous Notes* Telephone Encounter - Dorcas Pabon - 02/12/2024 10:28 AM EDT Unable to contact patient - called and lvm and sent mychart message for echo Deferred documented in this [facility]05-18-2024 Telephone encounter Note* Telephone Encounter - Dorcas Pabon - 02/12/2024 10:23 AM EDT Unable to contact patient to schedule CT lung screening - called and sent mychart message Deferred [facility] HospitalZkszrn86-07-5555 Miscellaneous Notes* Telephone Encounter - Dorcas Pabon - 02/12/2024 10:23 AM EDT Unable to contact patient to schedule CT lung screening - called and sent mychart message Deferred documented in this [facility]02-16-2024 Evaluation + Plan note* Assessment & Plan Note - Quiana DENIA Contreras CNP - 11/12/2023 4:50 PM EST Associated Problem(s): Tobacco abuse 1 ppd. Recommend complete cessation. Consider CT lung cancer screening. [facility] [id number] Miscellaneous Notes* Assessment & Plan Note - [...] than just dialysis days. documented in this [facility]02-16-2024 Evaluation + Plan note* Assessment & Plan Note - DENIA Dumont CNP - 11/12/2023 4:48 PM EST Associated Problem(s): Calcification of abdominal aorta (HCC) Sep 2023, by chart review this is the only ASCVD finding. Utility of lipid- lowering agent controversial in ESRD and does not appear to be improved with moderate intensity statins. -expectant mgt [facility] HospitalVpgbuq44-12-7362 Evaluation + Plan note* Assessment & Plan Note - DENIA Dumont CNP - 11/12/2023 4:48 PM ESTAssociated Problem(s): HTN (hypertension) Goal BP < 130/80 mmHg. BP today in office borderline. -continues on toprol XL -mgt per PCP and renal [place] [address]-16-2024 Evaluation + Plan note* Assessment & Plan [...] cardiac intervention that he is open to. [place] [address]-16-2024 Evaluation + Plan note* Assessment & Plan [...] dose overall, rather than just dialysis days. [facility] HospitalRxixtt77-83-7539 History of Present illness Narrative* DENIA Dumont CNP - 11/12/2023 1:30 PM EST Images from the original note were not included. [facility] [address] [place] [address] [address] [facility] [address] Dept: [phone] Dept Loc: [phone] Visit type: Established : 1965 Reason for [...] he is open to. 2. Paroxysmal A-fib ([facility]) ([facility]) Assessment & Plan: Paroxysmal. Refer to Dr. [...] the other hand, a mechanical valve with 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 designer OAC carries its own risks. Today: He [...] Date Acute renal failure (ARF) ([facility]) 10/19/2019 Anemia 12/30/2021 Calcification of abdominal aorta ([facility]) 10/08/202309/[address] abd Diverticulosis 10/08/2023 ESRD on hemodialysis ([facility]) ([facility]) 10/26/2019 Hemodialysis patient ([facility]) ([facility]) HTN (hypertension) 12/01/2022 Hypertension IgA nephropathy IgA nephropathy determined by biopsy of kidney 10/26/2019 Missed vaccination due to patient refusal 10/08/2023 Has a number of non-scientific based beliefs which interfere with his understanding and acceptance of the medical benefit of vaccination. Nonrheumatic aortic valve stenosis 10/08/2023 Paroxysmal A-fib ([facility]) ([facility]) 08/18/2023 Tobacco abuse 10/08/2023 Social History Tobacco [...] PM DENIA Dumont CNP documented [facility]02-05-2024 Telephone encounter Note* Telephone Encounter - Sydni Rodrigues - 11/01/2023 9:41 AM EST Called pt lmom for a return call to set up appt [facility] HospitalMiionm25-20-4845 Miscellaneous Notes* Telephone Encounter - Sydni Rodrigues [...] 10/14/2023 7:58 AM EST Preferred contact number: [phone] Reason for Visit: Jun called in to cancel his appt this morning. He woke up and is very sick. Please contact him to reschedule. Urgency of Appointment: office visit documented in this [facility]01-22-2024 Telephone encounter Note* Telephone Encounter - Sydni Rodrigues - 10/18/2023 2:34 PM EST Called pt LMOM for a return call to set up appt [facility] HospitalDzltdv56-53-1241 Telephone encounter Note* Telephone Encounter - Sydni Rodrigues - 10/14/2023 8:56 AM EST Called pt LMOM for a return call to r/s appt [facility] [id number] Telephone encounter Note* Telephone Encounter - Regino Oritz - 10/14/2023 7:58 AM EST Preferred contact number: [phone] Reason for Visit: Jun called in to cancel his appt this morning. He woke up and is very sick. Please contact him to reschedule. Urgency of Appointment: office visit [facility] [id number] Telephone encounter Note* Telephone Encounter - Daryabernadette Payne - 08/23/2023 1:47 PM EST 2nd attempt to schedule, no answer, left message. [facility] Eczmbs31-22-4810 Miscellaneous Notes* Telephone Encounter - Darya Payne [...] 8:30 AM EST ----- Patient discharged from [facility]. Please assist with s/p hosp "[facility]," okay within the next ~week. Thanks! documented in this encounterSThe MetroHealth SystemCweyno11-03-5772 Telephone encounter Note* Telephone Encounter - Daryawilton Payne - 08/18/2023 2:13 PM EST Left message requesting a call back from the patient to schedule appointment. [facility] HospitalTuhxha41-53-6850 Telephone encounter Note* Telephone Encounter - Daryawilton Payne - 08/18/2023 2:12 PM EST ----- Message from DENIA Dumont CNP sent at 08/18/2023 8:30 AM EST ----- Patient discharged from [facility]. Please assist with s/p hosp "[facility]," okay within the next ~week. Thanks! [facility] HospitalVujixu85-83-9581 Emergency department Note* Mary Ann Meraz RN - 08/17/2023 3:11 PM EST Patient education given in regard to medications, as well as following-up with PCP. Patient given eliquis information packet, understanding well. Mary Ann Meraz RN 08/17/231510 [place] [id number] Emergency department Note* Mary Ann Meraz RN - 08/17/2023 3:11 PM EST Patient education given in regard to medications, as well as following-up with PCP. Patient given eliquis information packet, understanding well. Mary Ann Meraz RN 08/17/231510 * Dangelo Horne DO - 08/16/2023 6:16 PM EST Emergency Department Encounter [facility] ED Patient: Jun Snyder : 1965 Date [...] 08/16/2023 6:16 PM EST Emergency Department Encounter [facility] ED Patient: Jun Snyder : 1965 Date [...] Diagnosis Date Hemodialysis patient ([facility]) (HCC) Hypertension Past Surgical History: Procedure Laterality Date APPENDECTOMY FISTULAGRAM (HISTORICAL) Left 09/15/2021 LEFT UPPER ARM HX AV FISTULA CREATION IR FISTULAGRAM 08/07/2022 IR FISTULAGRAM 08/07/2022 [facility] IR IMAGING TONSILLECTOMY (HISTORICAL) Social History Socioeconomic [...] gross facial drooping. No obvious neurologic deficits. 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 Moves all 4 extremities spontaneously. [...] 364 ms QTC Interval 491 ms P Edgar degrees QRS Edgar 61 degrees T Wave Edgar -20 degrees DE Interval ms Radiographs: XR chest 1 view Final Result 1. Cardiomegaly. 2. No other acute findings. Report Dictated on Electronically Signed By: Justo Milan MD Electronically Signed Date/Time: 08/16/2023 6:42 PM EST : EKG: All EKG's areinterpreted by the Emergency Department Physician in the absence of a rn international. see their note for interpretation of EKG. EMERGENCY DEPARTMENT COURSE and DIFFERENTIAL DIAGNOSIS/MDM: External Records Review: . Social Determinants of Health: . Jun Snyder is a 57 y.o. male who presented to the emergency department for evaluation of A-[facility] outpatient facility. Patient presented he was slightly [...] for new onset A-fib. Patient excepted to [facility]. Final Diagnosis: 1. New onset a-fib (CMS/HCC) ([facility]) Medications - No data to display Diagnoses as of 08/16/232129 New onset a-fib (CMS/HCC) ([facility]) CRITICAL CARE TIME CONSULTS: None PROCEDURES: Unless otherwise noted below, none Procedures DISPOSITION/PLAN Admit 08/16/2023 08:09:48 PM PATIENT REFERRED TO: No follow-up provider specified. DISCHARGE MEDICATIONS: New Prescriptions No medications on file @[facility]([id number]:LAST:1)@ (Please note: Portions of this note were completed with a voice recognition program. Efforts were made to edit the dictations but occasionally words and phrases are mis-transcribed.) Form [id number].J.[id number] Sha Granados PA-C Acute Care [facility] Sha Granados PA-C 08/16/232129 documented in this [facility]11-21-2023 Hospital Discharge instructions* Discharge Instr - Other Orders* DENIA Lorenzo CNP - 08/17/2023 3:02 PM EST Please discontinue Labetalol and Caduet; see discharge medication list Next dialysis session is 08/18/23 as previously instructed * Attachments The following attachments cannot be sent through Care Everywhere. * Atrial Fibrillation (Tanzanian) * Going Home on Blood Thinners (Tanzanian) * Apixaban, ADULT (Tanzanian) documented in [facility]11-21-2023 History of Present illness Narrative* DENIA [...] Information Primary Emergency Contact: Alexx Snyder Address: [address] [place] [address] [facility] [employer] Relation: Child DENIA Lorenzo CNP Division of Hospitalist Medicine Inpatient Medical Services/[facility] Comment: Please note this report has been [...] reflects time of documentation. documented in this [facility]11-21-2023 Consult note* Rj Villela MD - 08/17/2023 10:16 AM ESTAssociated Order(s): IP CONSULT TO CARDIOLOGY [facility] CON[facility] Patient Name: Jun Snyder [...] left heart disease. Rj Villela M.D., F.A.C.C. Software Quality Assurance Engineer Chief, Division of Cardiac Imaging Clinical Stamping [employer], [facility] Data Collection Cardiac Testin08/16/23 ECG [...] history of Hemodialysis patient ([facility]) (HCC), Hypertension, and IgA nephropathy. He has [...] alert. Psychiatric: Mood and Affect: Mood normal. [employer] Work Phone: 1(251) 453-639911-21-2023 Consult note* Rj Villela MD - 08/17/2023 10:16 AM ESTAssociated Order(s): IP CONSULT TO CARDIOLOGY [address] CARDIOLOGY CONSULTATION Patient Name: Jun Snyder : [...] left heart disease. Rj Villela M.D., F.A.C.C. Software Quality Assurance Engineer Chief, Division of Cardiac Imaging Clinical Stamping [employer], [facility] Data Collection Cardiac Testin08/16/23 ECG [...] history of Hemodialysis patient ([facility]) (HCC), Hypertension, and IgA nephropathy. He [...] and Affect: Mood normal. documented in [facility]11-20-2023 History and physical note* Earlene Irving MD - 08/16/2023 8:38 PM EST Images from the original note were not included. History and Physical [facility] Jun Snyder : 1965 AGE 57 [...] WedAug 16, 2023 8:09 PM (Active) Physician Lockstitch Collar Setter: Sha Granados PA-C, starting on WedAug 16, [...] him When he was getting dialysis his accountancy professor detected irregular rhythm suspected A-fib and referred [...] Diagnosis Date Hemodialysis patient ([facility]) (HCC) Hypertension IgA nephropathy Past Surgical History: Procedure Laterality Date APPENDECTOMY FISTULAGRAM (HISTORICAL) Left 09/15/2021 LEFT UPPER ARM HX AV FISTULA CREATION IR FISTULAGRAM 08/07/2022 IR FISTULAGRAM 08/07/2022 [facility] IR IMAGING TONSILLECTOMY (HISTORICAL) Allergies Allergen Reactions [...] 08/16/2023 364 QTC Interval 08/16/2023 491 QRS Edgar 08/16/2023 61 T Wave Edgar 08/16/2023 -20 SODIUM 08/16/2023 133 (L) POTASSIUM [...] QT Interval 364 QTC Interval 491 P Edgar QRS Edgar 61 T Wave Edgar -20 DE Interval Impression ATRIAL FIBRILLATION, V-RATE 88-139 INCOMPLETE [...] Anticoagulation yet to be determined His current [id number] score would be 1 based upon history [...] to due risk bleed/procedure 08/16/2023 Jun Snyder [id number] Any scheduled follow up appointments No future appointments. Extended Emergency Contact Information Primary Emergency Contact: Alexx Snyder Address: [address] [place], [place] [id number] [place] [employer] Relation: Child Portions of this note may be electronically transcribed. Please forward a copy of this H&P to the primary care physician. [facility] [id number] History and physical note* Earlene Irving MD - 08/16/2023 8:38 PM EST Images from the original note were not included. History and Physical [facility] Jun Snyder : 1965 AGE 57 [...] WedAug 16, 2023 8:09 PM (Active) Physician Lockstitch Collar Setter: Sha Granados PA-C, starting on WedAug 16, [...] him When he was getting dialysis his accountancy professor detected irregular rhythm suspected A-fib and referred [...] Diagnosis Date Hemodialysis patient ([facility]) (HCC) Hypertension IgA nephropathy Past Surgical History: [...] 08/16/2023 364 QTC Interval 08/16/2023 491 QRS Edgar 08/16/2023 61 T Wave Edgar 08/16/2023 -20 SODIUM 08/16/2023 133 (L) POTASSIUM [...] QT Interval 364 QTC Interval 491 P Edgar QRS Edgar 61 T Wave Edgar -20 DE Interval Impression ATRIAL FIBRILLATION, V-RATE 88-139 INCOMPLETE [...] monitor him on telemetry asked cardiology to [facility] we will additionally request echocardiogram. He is not experiencing chest pain but he is a current smoker and I do not see a recent cardiac work-up in the computer EKG on admission did confirm atrial fibrillation but he is currently in sinus rhythm Anticoagulation yet to be determined His current [id number] score would be 1 based upon history [...] to due risk bleed/procedure 08/16/2023 Jun Snyder [id number] Any scheduled follow up appointments No future appointments. Extended Emergency Contact Information Primary Emergency Contact: Alexx Snyder Address: [address] [place] [address] of [facility] Mobile Relation: Child Portions of this note may be electronically transcribed. Please forward a copy of this H&P to the primary care physician. documented in this [facility]11-20-2023 Physician Emergency department Note* Dangelo Horne DO - 08/16/2023 6:16 PM EST Emergency Department Encounter [facility] ED Patient: Jun Snyder : 1965 Date [...] for clarification.) Dangelo Horne DO Acute Care [facility] Dangelo Horne DO 08/16/231922 Dangelo Horne DO 08/16/231957 [employer] Work Phone: 1(144) 823-195811-20-2023 Physician Emergency department Note* Sha Granados PA-C - 08/16/2023 6:16 PM EST Emergency Department Encounter [facility] ED Patient: Jun Snyder : 1965 Date [...] gross facial drooping. No obvious neurologic deficits. 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 Moves all 4 extremities spontaneously. [...] 364 ms QTC Interval 491 ms P Edgar degrees QRS Edgar 61 degrees T Wave Edgar -20 degrees DE Interval ms Radiographs: XR chest 1 view Final Result 1. Cardiomegaly. 2. No other acute findings. Report Dictated on Electronically Signed By: Justo Milan MD Electronically Signed Date/Time: 08/16/2023 6:42 PM EST : EKG: All EKG's areinterpreted by the Emergency Department Physician in the absence of a rn international. see their note for interpretation of EKG. [...] for new onset A-fib. Patient excepted to [facility]. Final Diagnosis: 1. New onset a-fib (CMS/HCC) ([facility]) Medications - No data to display Diagnoses as of 08/16/232129 New onset a-fib (CMS/HCC) ([facility]) CRITICAL CARE TIME CONSULTS: None PROCEDURES: Unless otherwise noted below, none Procedures DISPOSITION/PLAN Admit 08/16/2023 08:09:48 PM PATIENT REFERRED TO: No follow-up provider specified. DISCHARGE MEDICATIONS: New Prescriptions No medications on file @[facility]([id number]:LAST:1)@ (Please note: Portions of this note were completed with a voice recognition program. Efforts were made to edit the dictations but occasionally words and phrases are mis-transcribed.) Form [id number] Sha Granados PA-C [facility] Sha Granados PA-C 08/16/232129 [facility]08-05-2023 Hospital Discharge instructions* Discharge Instructions* Jese [...] petroleum jelly on it. documented [facility] this [facility]08[facility]05-[facility]23 Emergency department Note* Jese Frank MD [...] stage renal disease) on dialysis ([facility]) DISPOSITION/PLAN DISPOSITION Discharge 05/01/2023 08:15:56 PM PATIENT REFERRED TO: Daryn Loomis MD [address] [facility] [address] In 1 week [facility] [address] [place], [place] [id number] Wound Care [address] [address] I prescribed: New Prescriptions EMOLLIENT [...] that bleeds occasionally. Patient was seen in [facility] a month ago for the same problem. Bed locked and low position, call light within reach. Patient has no further needs. documented [facility]08-05-2023 Emergency department Triage note* Sony Dacosta RN - 05/01/2023 7:35 PM EDT Patient to ER room 6 without difficulty. Patient is a dialysis patient Wednesday and Wednesday. Patient had dialysis today . Has small sore close to dialysis site that bleeds occasionally. Patient was seen in [facility] a month ago for the same problem. Bed locked and low position, call light within reach. Patient has no further needs. [facility]hefnt87-99-6043 Physician Emergency department Note* Jese Frank MD [...] stage renal disease) on dialysis ([facility]) DISPOSITION/PLAN DISPOSITION Discharge 05/01/2023 08:15:56 PM PATIENT REFERRED TO: Daryn Loomis MD [address] [facility] [address] In 1 week [facility] [address] [place], [place] [id number] Wound Care [address] [address] I prescribed: New Prescriptions EMOLLIENT [...] MD (electronically signed) Jese Frank MD 05/01/232038 [facility] HospitalGtxfer20-42-5027 Miscellaneous Notes* Telephone Encounter - Karly Devika Pss - 01/01/2022 2:36 PM EDT I scheduled him w/ Dr. reid on WednesdayFebruary 16 and left him a detailed vm that I did. This is all have at [facility] bc we are in to March and jair needs a Wednesday or Wednesday bc of dialysis I am sorry, I don't have solution or advise for hospital schedule issues. Next best thing is to discuss with Naomi. May be when Dr. King or Marti come in for special cases to [facility], can this case beincluded at that time. Or if you cancel [place] schedule and make room for me to come to [facility] any day I can get this done. Thanks! * Telephone Encounter - Karly Kumar - 12/30/2021 10:36 AM EDT Antonio I had him scheduled for his colon w/ you for next WednesdayJanuary 05 but Peggy ramirez said he has to be done at [facility] of his hgb. I have no openings at [facility] and I don't know what to do Can you please let me know how to proceed. Thank you Eryn PS I NEED A NEW COLON ORDER FOR [facility] documented in this [facility] Miscellaneous Notes* Telephone Encounter - Karly Fortune [facility] - 12/30/2021 9:33 AM EDT Antonio Painter saw a patient the other day and he ordered him a colon for blood loss anemia I scheduled him for [facility] but his hgb is 6 so Charo wants him at [facility] . He is also on dialysisand could only do a Wednesday. All docs are booked until March You had a cancellation for next . Can I please put him w/ you? Thank you Eryn documented in this encounterGrand [facility]04-04-2022 Miscellaneous Notes* Telephone Encounter - Karly Fortune [facility] - 12/29/2021 4:18 PM EDT Hello I know this patient saw Inocencio the other day as a new patient. I have him scheduled her and his hgb is 6 Could you please do an order for me? I have to get him on tayo Thanks Eryn documented in this encounterGrand [facility]03-31-2022 History of Present illness Narrative* Elizabethhuseyin Alisson Painter MD - 12/25/2021 3:48 PM EDT CHIEF COMPLAINT: Patient presents with: Hemoglobin drop 6.8: Rectal bleeding- labs in Care Everywhere under Summarization This consult was requested by Cindy Patel MD for an opinion regarding anemia. My final recommendations will be communicated to the requesting health care provider by way of the shared medical record for internal providers or letter via the [employer] for external providers. HPI: Jun [...] CKD (chronic kidney disease) Dialysis T//Sat @ [facility], Home hemodialysis since 09/2019 Diverticulosis [...] 12/25/21 TIME: 3:56 PM documented in this encounterGrand [facility]01-31-2020 History of Present illness Narrative* Miracle Jaramillo RN - 10/27/2019 9:00 PM EST Patient left via wheelchair with family member. Pt left with all of documented belongings. * Blane Lei RN - 10/27/2019 2:30 PM EST Patient Name: Glenn Snyder Patient : 1965 Acct: [id number] Date of Admission: 10/19/2019 Room/Bed: 156/1561 Code [...] (Bicarb): 35 Na+ Modeling: Not Applicable Dialyzer: [id number] Dialysate Temperature (C): 36 Blood Flow Rate [...] - Before each treatment: Dialysis Machine No.: [id number] RO Machine No.: [id number] Dialyzer Lot No.: [id number] RO Machine Log Sheet Completed: Yes Machine Alarm Self Test: Completed;Passed (10/27/191409) Machine Autotest: Completed, Passed Air Foam Detector: Tested, Proper Function, pH Reading Extracorporeal Circuit Tested for Integrity: Yes Machine Conductivity: 13.9 Manual Conductivity: 13.7 Machine Ph: 7 Manual Ph: 7 Bleach Test (Neg): Yes Bath Temperature: 96.8 F (36 C) Tubing Lot#: [id number] Conductivity Meter Serial #: [id number] All Connections Secure?: Yes Venous Parameters Set?: [...] TMP Hemodialysis Conductivity DFR Comments Access Visible 10/27/191417 200 ml/min 630 ml/hr -120 mmHg 40 [...] Response to Education: Verbalized Understanding * Jeana Pderaza MD - 10/27/2019 11:26 AM EST [facility] Progress Note SUBJECTIVE: Glenn Snyder [...] never had kidney Bx and never saw accountancy professor before BLOSSOM might be from CKD progression [...] . Pt is likely ESRD. Pt on [facility] HD schedule. Last HD session 10/25 Next HD session today Pt has HD spot at [facility]. 2- Hyperkalemia: resolved with HD 3-high anion gap acidosis likely from CKD and BLOSSOM Resolved with HD 4- Hyperphosphatemia: Continue Phosphorus binder 5- HTN: Improved with HD. Continue same BP meds Monitor BP Ok to d/c patient from nephro stand point Will continue to follow Please call if any question at [phone] JEANA PEDRAZA MD 10/27/2019 11:26 AM * Jeana Pedraza MD - 10/26/2019 4:25 PM EST [facility] Progress Note SUBJECTIVE: Glenn Snyder [...] never had kidney Bx and never saw accountancy professor before BLOSSOM might be from CKD progression [...] follow Please call if any question at [phone] JEANA PEDRAZA MD 10/26/2019 4:25 PM * Kimber Bajwa RN - 10/26/2019 10:46 AM EST Patient returned from US renal biopsy. VSS, see record. Bandaide is dry and intact to right flank area. Patient instructed on need for bedrest until 12:45. * Darell Sanches DO - 10/26/2019 8:19 AM EST Hospitalist Progress Note 10/26/2019 8:19 AM [phone]: Please page me ([phone]) for patient care issues. [phone]: Please page [facility] night Hospitalist for any issues. Subjective: [...] lab Plan -daily weights, I&Os, dialysis per accountancy professor -renal biopsy and dialysis cath pending, accountancy professor following -am labs, replace lytes prn -increase activity -DVT prophylaxis: [] Lovenox [x] Heparin [] SCDs [x] Encourage ambulation [] Already on Anticoagulation Advance Directive: Full Code Discharge planning: Awaiting dialysis cath and renal biopsy. Can be discharge once outpatient dialysis arrangements have been made Darell Sanches DO Division of Hospitalist Medicine Inpatient Medical Services PAGER: [phone] * Ivett Cope, RN - 10/25/2019 4:23 [...] and discharge needs Received a call from [facility] regarding pt dialysis chair spot. Was informed that they willhave a spot for the pt on Wednesday of next week. I explained that plans are for pt to receive tunneled dialysis cath tomorrow, 10/26/2019. She stated that he will have a spot on Reji, Feb 3 for dialysis * Ellie Mireles RD, LD [...] 5. Fluid Accumulation-No significant fluid accumulation, 6. Retail Banker Strength-Normal Nutrition Risk Level: High Nutrient Needs: Estimated Daily Total Kcal: 7702-3178 Estimated Daily Protein (g): 60-90 Estimated Daily Total Fluid (ml/day): per md Nutrition Diagnosis: Problem: Altered nutrition-related lab values, Predicted suboptimal energy intake, Increased nutrient needs Etiology: related to Renal dysfunction ? Signs and symptoms: as evidenced by Known losses from dialysis, Weight loss, Lab values Objective Information: Nutrition-Focused Physical Findings: appetite improved, no edema, bun 39 , creat 9.71, wbc11.3msrmc1.3,on renvela tid- NO DRY WT EST. off [...] kg)(summer 2018) % Weight Change: , na [place] Body Wt: 166 lb (75.3 kg), % [place] Body 121 Adjusted Body Wt: , body [...] EST Hospitalist Progress Note 10/25/2019 5:02 PM [phone]: Please page me ([phone]) for patient care issues. [phone]: Please page [facility] night Hospitalist for any issues. Subjective: [...] lab Plan -daily weights, I&Os, dialysis per accountancy professor -renal biopsy and dialysis cath pending, accountancy professor following -am labs, replace lytes prn -increase activity -DVT prophylaxis: [] Lovenox [x] Heparin [] SCDs [x] Encourage ambulation [] Already on Anticoagulation Advance Directive: Full Code Discharge planning: awaiting dialysis cath and renal biopsy Darell Sanches DO Division of Hospitalist Medicine Inpatient Medical Services PAGER: [phone] * Ramon Mei RN - 10/25/2019 11:46 AM EST Patient Name: Glenn Snyder Patient : 1965 Acct: [id number] Date of Admission: 10/19/2019 Room/Bed: 156/1561 Code [...] (Bicarb): 35 Na+ Modeling: Not Applicable Dialyzer: [id number] Dialysate Temperature (C): 36 Blood Flow Rate [...] - Before each treatment: Dialysis Machine No.: [id number] Machine No.: [id number] Dialyzer Lot No.: [id number] RO Machine Log Sheet Completed: Yes Machine Alarm Self Test: Completed;Passed (10/25/191119) Machine Autotest: Completed, Passed Air Foam Detector: Tested, Proper Function, pH Reading Extracorporeal Circuit Tested for Integrity: Yes Machine Conductivity: 14 Manual Conductivity: 14.1 Machine Ph: 7 Manual Ph: 7 Bleach Test (Neg): Yes Bath Temperature: 96.8 F (36 C) Tubing Lot#: [id number] Conductivity Meter Serial #: [id number] All Connections Secure?: Yes Venous Parameters Set?: Yes Arterial Parameters Set?: Yes Saline Line Double Clamped?: Yes Air Foam Detector Engaged?: Yes Machine Functioning Alarm Free? Yes Prime Given: 200ml Chlorine Testing - Before each treatment and every 4 hours: Treatment Treatment Number: 4 Time On: 1124 Time Off: 1523 Treatment Goal: 2500 Weight: [...] Pedraza MD - 10/25/2019 7:58 AM EST [facility] Progress Note SUBJECTIVE: Glenn Snyder [...] Noted Acute renal failure (ARF) ([facility]) 10/19/2019 ASSESSMENT/PLAN: 1. BLOSSOM . Pt likely has CKD at baseline. No previous Cr values to compare. CKD could be from HTN induced nephrosclerosis VS GN since the patient has h/o proteinuria /hematuria since 2000 but he never had kidney Bx and never saw accountancy professor before BLOSSOM might be from CKD progression [...] follow Please call if any question at [phone] JEANA PEDRAZA MD 10/25/2019 7:58 AM * [...] EST Hospitalist Progress Note 10/24/2019 11:38 AM [phone]: Please page me ([phone]) for patient care issues. [phone]: Please page [facility] night Hospitalist for any issues. Subjective: [...] lab Plan -daily weights, I&Os, dialysis per accountancy professor -renal biopsy and dialysis cath pending, accountancy professor following -am labs, replace lytes prn -increase activity -DVT prophylaxis: [] Lovenox [x] Heparin [] SCDs [x] Encourage ambulation [] Already on Anticoagulation Advance Directive: Full Code Discharge planning: ok to discharge today pending renal biopsy and dialysis cath placement Darell Sanches DO Division of Hospitalist Medicine Inpatient Medical Services PAGER: [phone] * Ivett Cope RN - 10/24/2019 10:48 AM EST Microbiology called, pt has 3x blood cultures drawn on 10/19. One came back with Gram positive rods.Perfect[employer]apo message sent to JAMSHID Sanches regarding results * Jeana Pedraza MD - 10/24/2019 9:15 AM EST [facility] Progress Note SUBJECTIVE: Glenn Snyder [...] never had kidney Bx and never saw accountancy professor before BLOSSOM might be from CKD progression [...] follow Please call if any question at [phone] JEANA PEDRAZA MD 10/24/2019 9:15 AM * Radha Foreman RN - 10/23/2019 7:21 PM EST Patient Name: Glenn Snyder Patient : 1965 Acct: [id number] Date of Admission: 10/19/2019 Room/Bed: 222/2225 Code [...] (Bicarb): 35 Na+ Modeling: Not Applicable Dialyzer: [id number] Dialysate Temperature (C): 35 Blood Flow Rate [...] - Before each treatment: Dialysis Machine No.: [id number] RO Machine No.: [id number] Dialyzer Lot No.: [id number] RO Machine Log Sheet Completed: Yes Machine Alarm Self Test: Completed;Passed (10/23/191709) Machine Autotest: Completed, Passed Air Foam Detector: Tested, Proper Function, pH Reading Extracorporeal Circuit Tested for Integrity: Yes Machine Conductivity: 13.7 Manual Conductivity: 13.6 Machine Ph: 7 Manual Ph: 7 Bleach Test (Neg): Yes Bath Temperature: 95 F (35 C) Tubing Lot#: [id number] Conductivity Meter Serial #: [id number] All Connections Secure?: Yes Venous Parameters Set?: [...] minutes from secondary) Comment", Waited for RN yard supervisor cotton gin for 2nd water check. Access Flows and [...] 1900 137/84 81 10/23/19 191 129/72 85 10/23/191929 (!) 155/85 80 10/23/191944 (!) 132/99 73 [...] Patel MD - 10/23/2019 4:54 PM EST [facility] Progress Note SUBJECTIVE: Glenn Snyder [...] Noted Acute renal failure (ARF) ([facility]) 10/19/2019 ASSESSMENT/PLAN: 1. Renal failure, most likely chronic. Discussed with patient in detail. 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 Currently not working. 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 Apparently he was admitted at a hospital in [place] about 5 years ago and had cystoscopy [...] changed to tunneled when ready for dc Jayaprakash R Jorge, MD 10/23/2019 4:54 PM * Darell Sanches DO - 10/23/2019 2:02 PM EST Hospitalist Progress Note 10/23/2019 5:02 PM [phone]: Please page me ([phone]) for patient care issues. [phone]: Please page [facility] night Hospitalist for any issues. Subjective: [...] anemia Plan -daily weights, I&Os, dialysis per accountancy professor -renal biopsy and temp dialysis cath pending, accountancy professor to arrabge -am labs, replace lytes prn -increase activity -DVT prophylaxis: [] Lovenox [x] Heparin [] SCDs [x] Encourage ambulation [] Already on Anticoagulation Advance Directive: Full Code Discharge planning: likely discharge in next 24 hours Darell Sanches DO Division of Hospitalist Medicine Inpatient Medical Services PAGER: [phone] * Darell Sanches DO - 10/22/2019 2:17 PM EST Hospitalist Progress Note 10/22/2019 2:17 PM [phone]: Please page me ([phone]) for patient care issues. [phone]: Please page [facility] night Hospitalist for any issues. Subjective: [...] anemia Plan -daily weights, I&Os, dialysis per accountancy professor -discussed with patient and he is willing to have the renal bx done. Will notify accountancy professor -am labs, replace lytes prn -increase activity -DVT prophylaxis: [] Lovenox [x] Heparin [] SCDs [x] Encourage ambulation [] Already on Anticoagulation Advance Directive: Full Code Discharge planning: likely discharge in next 1-2 days after renal biopsy Darell Sanches DO Division of Hospitalist Medicine Inpatient Medical Services PAGER: [phone] * Randolph Liz MD - 10/22/2019 12:46 PM EST [facility] [address] [place] [address] Progress Note Subjective: Patient seen [...] EST Hospitalist Progress Note 10/21/2019 10:35 PM [phone]: Please page me ([phone]) for patient care issues. [phone]: Please page [facility] night Hospitalist for any [...] bolus, 20 mL, Intravenous, Once, Delon Jessica, CONTINUOUS MINER OPERATOR HELPER - HAZARDOUS MATERIALS WASTE TECHNICIAN hydrALAZINE (APRESOLINE) injection 10 mg, 10 mg, Intravenous, Q4H PRN, Brett Encarnacion MD [COMPLETED] Saline lock IV, , , Continuous AND sodium chloride flush 0.9 % injection 3 mL, 3 mL, Intravenous, Q8H, Callie Nieves DO, 3 mL at 10/21/19 1323 heparin [...] 115 ml IV Intake: P.O.: 240 mL Christian: No flowsheet data found. 10/20 1501 - [...] of Hospitalist Medicine Inpatient Medical Services PAGER: [phone] * Randolph Liz MD - 10/21/2019 1:44 PM EST [facility] [address] [place] [address] Progress Note Subjective: Patient seen [...] persistent high bp start norvasc po Randolph Lzi M.D 10/21/2019 1:45 PM * Christelle Wolfe I RN - 10/21/2019 10:23 AM EST Patient Name: Glenn Snyder Patient : 1965 Acct: [id number] Date of Admission: 10/19/2019 Room/Bed: [address] [place] [address] Code Status: Full Code Allergies: No Known [...] HCO3 (Bicarb): 35 Na+ Modeling: NA Dialyzer: [id number] Dialysate Temperature (C): 36 Blood Flow Rate [...] Regular Unlabored None (Room air) Expiratory wheezes [place] Dry;Warm Distended;Rounded;Soft Audible Generalized 0 10/21/19 1300 0 3 Regular Unlabored None (Room air) Clear;Diminished [place] Dry;Warm Distended;Rounded;Soft Active Generalized 0 Labs Recent [...] - Before each treatment: Dialysis Machine No.: [id number] Machine No.: [id number] Dialyzer Lot No.: [id number] RO Machine Log Sheet Completed: Yes Machine Alarm Self Test: Completed;Passed (10/21/19 0940) Machine Autotest: Completed, Passed Air Foam Detector: Tested, Proper Function, pH Reading Extracorporeal Circuit Tested for Integrity: Yes Machine Conductivity: 13.7 Manual Conductivity: 13.8 Machine Ph: 7 Manual Ph: 7 Bleach Test (Neg): Yes Bath Temperature: 96.8 F (36 C) Tubing Lot#: [id number] Conductivity Meter Serial #: [id number] All Connections Secure?: Yes Venous Parameters Set?: [...] Name: Glenn Snyder Patient : 1965 Acct: [id number] Date of Admission: 10/19/2019 Room/Bed: [address] [place] [address] Code Status: Full Code Allergies: No Known [...] (Bicarb): 35 Na+ Modeling: Not Applicable Dialyzer: [id number] Dialysate Temperature (C): 36 Blood Flow Rate [...] x3 Regular Unlabored None (Room air) Clear [place] Dry;Warm Good Soft Active None 0 10/20/19 [...] - Before each treatment: Dialysis Machine No.: [id number] RO Machine No.: [id number] Dialyzer Lot No.: [id number] RO Machine Log Sheet Completed: Yes Machine Alarm Self Test: Completed;Passed (10/20/19 1525) Machine Autotest: Completed, Passed Air Foam Detector: Tested, Proper Function, pH Reading Extracorporeal Circuit Tested for Integrity: Yes Machine Conductivity: 13.6 Manual Conductivity: 13.6 Machine Ph: 7 Manual Ph: 7 Bleach Test (Neg): Yes Bath Temperature: 96.8 F (36 C) Tubing Lot#: [id number] Conductivity Meter Serial #: [id number] All Connections Secure?: Yes Venous Parameters Set?: [...] Pedraza MD - 10/20/2019 2:42 PM EST [facility] Progress Note SUBJECTIVE: Glenn Snyder [...] Noted Acute renal failure (ARF) ([facility]) 10/19/2019 ASSESSMENT/PLAN: 1. BLOSSOM . Pt likely has CKD at baseline. No previous Cr values to compare. CKD could be from HTN induced nephrosclerosis VS GN since the patient has h/o proteinuria /hematuria since 2000 but he never had kidney Bx and never saw accountancy professor before BLOSSOM might be from CKD progression [...] follow Please call if any question at [phone] JEANA PEDRAZA MD 10/20/2019 2:43 PM * Dorcas Chin APRN - CNP - 10/20/2019 12:03 PM EST Patient transferred from ICU to [facility] service * Brett Encarnacion MD - [...] []Injected [x]Non-Injected / Pinnae [x]Normal []Other/ Dentitian [][place] Teeth []Dentures Oral Mucosa [x][place] [x]Moist []Dry/ Oral ETT []Present [x]Absent Neck: [...] [x]Absent/ GUAN ([x]RUE [x]RLE [x]LUE [x]LLE) Neurologic: BARROW []Yes [x]No Corneal reflexes []Present []Absent / [...] Ordering Physician MD ENCARNACION MATTHEW Accession Number [id number] CPT4 Codes 20569 () Reason For Exam line placement/vascath Report [...] 5. Fluid Accumulation-No significant fluid accumulation, 6. Retail Banker Strength-Not measured Nutrition Risk Level: High Nutrient Needs: Estimated Daily Total Kcal: 4379-1063 Estimated Daily Protein (g): 60-90 Estimated Daily [...] Wt: (na) % Weight Change: , na [place] Body Wt: 166 lb (75.3 kg), % [place] Body 132 Adjusted Body Wt: , body [...] Name: Glenn Snyder Patient : 1965 Acct: [id number] Date of Admission: 10/19/2019 Room/Bed: 222/2225 Code Status: No Order Allergies: No Known [...] (Bicarb): 40 Na+ Modeling: Not Applicable Dialyzer: [id number] Dialysate Temperature (C): 36 Blood Flow Rate [...] - Before each treatment: Dialysis Machine No.: [id number] RO Machine No.: [id number] Dialyzer Lot No.: [id number] RO Machine Log Sheet Completed: Yes Machine Alarm Self Test: Completed;Passed (10/19/19 1245) Machine Autotest: Completed, Passed Air Foam Detector: Proper Function, Tested, pH Reading Extracorporeal Circuit Tested for Integrity: Yes Machine Conductivity: 13.8 Manual Conductivity: 13.7 Machine Ph: 7 Manual Ph: 7 Bleach Test (Neg): Yes Bath Temperature: 96.8 F (36 C) Tubing Lot#: [id number] Conductivity Meter Serial #: [id number] All Connections Secure?: Yes Venous Parameters Set?: [...] to Education: Verbalized Understanding [facility] Work Phone: [phone] Hospital course Narrative* Darell Sanches, DO - [...] to presentation. Admitted to ICU, seen by accountancy professor and HD initiated. Stabilized and transferred out [...] Medications: Glenn Snyder Home Medication Instructions JOSE M:[id number] Printed on:10/27/19 1123 Medication Information amLODIPine (NORVASC) 5 MG tablet Take 1 tablet by mouth daily metoprolol tartrate (LOPRESSOR) 25 MG tablet Take 0.5 tablets by mouth 2 times daily sevelamer (RENVELA) 800 MG tablet Take 2 tablets by mouth 3 times daily (with meals) Recommended Follow-up: accountancy professor In 3 weeks post hospital fu appt Brenton Mckeon MD [address] [place] [address] In 2 weeks post hospital fu appt Readmission Risk Risk of Unplanned Readmission: 15 Complexity of Follow up: ? Moderate Complexity: follow up within 7-14 calendar days (04379) ? Severe Complexity: follow up within 7 calendar days (50084) Follow up Testing, Pending results or Referrals [...] Services 10/27/2019, 11:23 AM documented in this [facility] Work Phone: [phone] Hospital Discharge instructions* Discharge Instr - Activity* [...] Bai RN - 10/24/2019 2:21 PM EST [facility] [phone] offer services including medical, dental, [facility], behavioral health and a reduced-rate pharmacy. Fees are based on current income and family size. Please refer to your handout for additional information and all location options. ISAURAREJI Morin [place] [address] [place] [address] Wednesday 8 AM 6 PM Wednesday 8 AM 2 PM Hemodialysis will be Wednesday, Wednesday and Wednesday at [facility] located at [address] [place] [phone] or [phone] Please arrive at 9:45 am * Additional [...] through Care Everywhere. * Kidney Biopsy: Post-op (Tanzanian) [facility] Work Phone: Evaluation note* Diagnosis Acute kidney injury (HCC)- Primary Acute kidney failure, unspecified Uncontrolled hypertension Unspecified essential hypertension Normocytic anemia Anemia, unspecified Angioedema, initial encounter Hyperkalemia Hyperpotassemia Metabolic acidosis Acidosis Rectal bleeding Hemorrhage of rectum and anus Acute renal failure (ARF) (HCC) Acute kidney failure, unspecified [facility] Work Phone: Evaluation note* Diagnosis Acute blood loss anemia- Primary Acute posthemorrhagic anemia Rectal bleeding Hemorrhage of rectum and anus documented [facility] this [facility] Diagnosis Other iron deficiency anemia- Primary Rectal bleeding Hemorrhage of rectum and anus documented in this encounter [facility]* Diagnosis Skin sore- Primary ESRD (end stage renal disease) on dialysis (HCC) End stage renal disease [facility]* Diagnosis New onset a-fib (CMS/HCC) (HCC)- Primary Atrial fibrillation New onset a-fib (CMS/HCC) (HCC) Atrial fibrillation Atrial fibrillation, persistent (HCC) documented [facility]* Diagnosis Nonrheumatic aortic valve stenosis- Primary Paroxysmal A-fib (CMS/HCC) (HCC) Primary hypertension Unspecified essential hypertension Calcification of abdominal aorta (HCC) Tobacco abuse Tobacco use disorder ESRD on hemodialysis (CMS/HCC) (HCC) documented [facility]* Diagnosis Personal history of nicotine dependence- Primary Nicotine dependence, cigarettes, uncomplicated [facility]* Diagnosis Paroxysmal A-fib (CMS/HCC) (HCC)- [...] disorder in remission [facility]* Diagnosis Paroxysmal A-fib (CMS/HCC) (HCC)- [...] whether acute cor pulmonale present ([facility]) [facility] [...] disorder in remission documented [facility] Diagnosis Paroxysmal A-fib (CMS/HCC) (HCC)- [...] to fungus (HCC) [facility] Diagnosis Paroxysmal A-fib (CMS/HCC) [...] aortic valve stenosis [facility] Diagnosis Paroxysmal A-fib (CMS/HCC) [...] aortic valve stenosis [facility] Diagnosis Paroxysmal A-fib (CMS/HCC) [...] region, unstageable (HCC) [facility] Diagnosis Paroxysmal A-fib (CMS/HCC) [...] Acute respiratory failure with hypoxia ([facility]) [J96.01] [facility] Diagnosis Paroxysmal A-fib (CMS/HCC) [...] osteomyelitis (CMS/HCC) (HCC) [facility]* Diagnosis Paroxysmal A-fib (CMS/HCC) [...] Acute respiratory failure with hypoxia ([facility]) [J96.01]- Primary Tracheostomy care ([facility]) [Z43.0] Attention to tracheostomy Pulmonary embolism, other, unspecified chronicity, unspecified whether acute cor pulmonale present ([facility]) [facility] [...] Decubitus ulcer of sacral region, unstageable (HCC) [facility] (current) use of antibiotics documented in this [...] Acute respiratory failure with hypoxia ([facility]) [J96.01]- Primary 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] Tracheostomy status Pulmonary embolism, other, unspecified [...] Acute respiratory failure with hypoxia ([facility]) [J96.01] Leg DVT (deep venous thromboembolism), acute, [...] to respiratory syncytial virus (RSV) 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[facility]) Tracheostomy status Pneumonia of both lungs due to methicillin susceptible Staphylococcus aureus (MSSA), unspecified part of lung ([facility]) Acute respiratory failure with hypoxia ([facility]) [J96.01] Nonrheumatic aortic valve stenosis Pulmonary embolism, unspecified chronicity, unspecified pulmonary embolism type, unspecified whether acute cor pulmonale present ([facility]) [facility] Diagnosis Paroxysmal A-fib (CMS/HCC) [...] Alcohol use disorder in remission 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 Tracheostomy status ESRD on hemodialysis (CMS/HCC) (HCC) [facility] (current) use of antibiotics Decubitus ulcer of sacral region, unstageable (HCC) Sacral osteomyelitis (CMS/HCC) (HCC) [facility]* Diagnosis Paroxysmal A-fib (CMS/HCC) [...] Acute respiratory failure with hypoxia ([facility]) [J96.01]- Primary RSV (acute bronchiolitis due to respiratory syncytial virus) Acute bronchiolitis due to respiratory syncytial virus (RSV) 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[facility]) Tracheostomy status Leg DVT (deep venous thromboembolism), acute, left ([facility]) Pulmonary embolism, unspecified chronicity, unspecified pulmonary embolism type, unspecified whether acute cor pulmonale present ([facility]) S/P AVR documented [facility]* Diagnosis Paroxysmal A-fib (CMS/HCC) [...] (CMS/HCC) (HCC)- Primary Complication of tracheostomy (CMS/HCC) ([facility]) Pressure injury of sacral region, stage 4 ([facility]) Melena Blood in stool BRBPR (bright red [...] Decubitus ulcer of sacral region, unstageable (HCC) [facility] (current) use of antibiotics [facility] noteNo assessment information availableWKettering [facility] Work Phone: Evaluation note* Diagnosis [...] or dog food bags, or a vacuum sanitation truck cleaner. Your dressing will be removed at [...] When should you call for help? Call [phone] anytime you think you may need emergency [...] call and ask for the Interventional Radiologist finish production manager. Where can you learn more? Go to [email or web address] and sign in to your [employer] account. Enter P616 in the Search Health Information box to learn more about Hemodialysis Access: What to Expect at Home. If you do not have an account, please click on the "Sign Up Now" link. Current as of: August 12, 2016 Content Version: 11.2 [id number] [employer]. Care instructions adapted under license by [employer]. If youhave questions about a medical condition or this instruction, always ask your healthcare professional. [employer] disclaims any warranty or liability for your use of this information. documented [facility] this [facility] Phone: [facility] for referral (narrative)* Outpatient Procedure (Routine) - Authorized Specialty Diagnoses / Procedures Referred By Contac t Referred To Contact [facility] Diagnoses Acute blood loss anemia Rectal bleeding Procedures COLONOSCOPY DIAGNOSTIC COLONOSCOPY FLX DX W/COLLJ SPEC WHEN Rudy Buitrago MD [address] [place] [address] [address] [address] Referral ID Status Reason Start Date Expiration Date Visits Requested Visits Authorized [id number] Authorized Auto-Generat ed Referral 12/25/2021 12/25/2022 1 1 [facility] for referral (narrative)* Outpatient Procedure (Routine) - Authorized Specialty Diagnoses / Procedures Referred By Contac t Referred To Contact [facility] Diagnoses Other iron deficiency anemia Rectal bleeding Procedures COLONOSCOPY DIAGNOSTIC COLONOSCOPY FLX DX W/COLLJ SPEC WHEN Rudy Buitrago MD [facility] [facility] [address] [address] Referral ID Status Reason Start Date Expiration Date Visits Requested Visits Authorized [id number] Authorized Auto-Generat ed Referral 12/30/2021 12/30/2022 1 1 [facility] for referral (narrative)* Consultation (Routine) - Pending Review Specialty Diagnoses / Procedures Referred By Contac t Referred To Contact [facility] Diagnoses Skin sore Procedures DE OFFICE/OUTPATIENT NEW HIGH MDM 60-74 MINUTES Jese Frank MD [address] [place] [address] [facility] Op Wnd Ostomy [address] [place] [address] Referral ID Status Reason Start Date Expiration Date Visits Requested Visits Authorized [id number] Pending Review Specialty Services Required 05/01/2023 04/30/2024 1 1 [facility] for referral (narrative)No reason for referral information availableWKettering Health [facility] Work Phone: [facility] for visit Narrative* Auth/Cert (Routine) Specialty Diagnoses / Procedures Referred By Contac t Referred To Contact Diagnoses Atrial flutter, unspecified type (HCC) Procedures . Ramón Romano MD [address] [place] [address] Phone: tel: fax: [facility] ED [address] [place] [address] Phone: tel: Referral ID Status Reason Start Date Expiration Date Visits Re quested Visits Authorized [id number] 1 1 [facility] for visit Narrative* Imaging (Routine) - Closed Specialty Diagnoses / Procedures Referred By Contac t Referred To Contact Radiology Diagnoses Hemoptysis Procedures CT chest wo IV contrast Elly Jett MD [facility] [place] [address] Phone: tel: fax: [facility] [address] [place] [address] Phone: tel: fax:[phone] Referral ID Status Reason Start Date Expiration Date Visits Re quested Visits Authorized [id number] Closed 02/23/2025 02/23/2026 1 1 [facility] Diagnosis Chronic kidney disease, [...] Documents on File Type Date Recorded Patient Entrance Guard Expl anation Advance Directive(s) 11/22/2020 11:20 AM Advance Directive(s) 06/12/2020 8:15 AM Advance Directive(s) 03/20/2020 7:16 AM Documents on File Type Date Recorded Patient Entrance Guard Expl anation Advance Directive(s) 11/22/2020 11:20 AM Advance Directive(s) 06/12/2020 8:15 AM Advance Directive(s) 03/20/2020 7:16 AM Documents on File Type Date Recorded Patient Entrance Guard Expl anation Power of [employer] 02/14/2023 1:37 PM Advance Directives and Livin g Will 02/14/2023 1:37 PM Documents on File Type Date Recorded Patient Entrance Guard Expl anation Power of [employer] 02/14/2023 1:37 PM Advance Directives and Livin [...] Documents on File Type Date Recorded Patient Entrance Guard Expl anation Advance Directives and Livin g Will 10/03/2024 11:27 AM Power of [employer] 02/14/2023 1:37 PM Advance Directives and Livin g Will 02/14/2023 1:37 PM Date Activated Date Inactivated Comments 10/03/2024 6:19 PM Date Activated Date Inactivated Comments 08/17/2023 12:04 AM 08/17/2023 5:18 PM Documents on File Type Date Recorded Patient Entrance Guard Expl anation Advance Directives and Livin g Will 10/03/2024 11:27 AM Power of [employer] 02/14/2023 1:37 PM Advance Directives and Livin [...] Documents on File Type Date Recorded Patient Entrance Guard Expl anation Power of [employer] 01/24/2025 12:29 PM Advance Directives and Livin g Will 10/03/2024 11:27 AM Power of [employer] 02/14/2023 1:37 PM Advance Directives and Livin [...] Omar Lillian Child Health Care Agent [facility] Care Agent Documents on File Type Date Recorded Patient Entrance Guard Expl anation Power of [employer] 01/24/2025 12:29 PM Advance Directives and Livin g Will 10/03/2024 11:27 AM Power of [employer] 02/14/2023 1:37 PM Advance Directives and Livin [...] Lillian Child Health Care Agent Toma Mcneil [facility] First Alternate Health Care Agent Healthcare Agents on File Name Relationship Healthcare Agent Relationshi p Communication Omar Lillian Child Health Care Agent [facility] Alternate Health Care Agent Healthcare Agents on File Name Relationship Healthcare Agent Relationshi p Communication Omar Lillian Child Health Care Agent Toma Mcneil [facility] First Alternate Health Care Agent Healthcare Agents on File Name Relationship Healthcare Agent Relationshi p Communication Omar Lillian Child Health Care Agent Toam Mcneil [facility] First Alternate Health Care Agent Date [...] Lillian Child Health Care Agent Toma Mcneil [facility] First Alternate Health Care Agent Date [...] Lillian Child Health Care Agent Toma Mcneil [facility] First Alternate Health Care Agent Date Activated Date Inactivated Comments 02/21/2025 12:23 AM 03/05/2025 6:36 PM Healthcare Agents on File Name Relationship Healthcare Agent Relationshi p Communication Omar Lillian Child Health Care Agent [facility] First Alternate Health Care Agent Date Activated Date Inactivated Comments 02/21/2025 12:23 AM 03/05/2025 6:36 PM Healthcare Agents on File Name Relationship Healthcare Agent Relationshi p Communication Omar Lillian Child Health Care Agent [facility] First Alternate Health Care Agent Healthcare Agents on File Name Relationship Healthcare Agent Relationshi p Communication Omar Lillian Child Health Care Agent [facility] Care Agent Documents on File Type Date Recorded Patient Entrance Guard Expl anation Power of [employer] 01/24/2025 12:29 PM Omar Lillian Advance Directives and Livin g Will 10/03/2024 11:27 AM Power of [employer] 02/14/2023 1:37 PM Advance Directives and Livin [...] Omar Lillian Child Health Care Agent [facility] Health Care Agent Healthcare Agents on File Name Relationship Healthcare Agent Relationshi p Communication Omar Illlian Child Health Care Agent [facility] Alternate Health Care Agent Documents on File Type Date Recorded Patient Entrance Guard Expl anation Power of [employer] 01/24/2025 12:29 PM Omar Lillian Advance Directives and Livin g Will 10/03/2024 11:27 AM Power of [employer] 02/14/2023 1:37 PM Advance Directives and Livin [...] Omar Lillian Child Health Care Agent [facility] Alternate Health Care Agent Healthcare Agents on File Name Relationship Healthcare Agent Relationshi p Communication Omar Lillian Child Health Care Agent [facility] Alternate Health Care Agent Healthcare Agents on File Name Relationship Healthcare Agent Relationshi p Communication Omar Lillian Child Health Care Agent [facility] First Alternate Health Care Agent Healthcare Agents on File Name Relationship Healthcare Agent Relationshi p Communication Omar Lillian Child Health Care Agent [facility] First Alternate Health Care Agent Healthcare Agents on File Name Relationship Healthcare Agent Relationshi p Communication Omar Lillian Child Health Care Agent Toma Mcneil [facility] Care Agent Summary Purpose Family History No [...] CT lung screening low dose Fransisco Pineda, CONTINUOUS MINER OPERATOR HELPER [address] [place] [address] Referral ID Status Reason Start Date Expiration Date V isits Requested Visits Authorized [id number] Authorized 09/07/2023 09/06/2024 1 1 Chief Complaint and Reason for Visit Chief Complaint Admit Date LABWORK February 05, 2025 5:56a m Chief Complaint Admit Date LABWORK February 05, 2025 5:56a m LABOWRK February 07, 2025 5:00a m HALF-WAY LAB WORK February 15, 2025 5:0 0am HALF-WAY LAB WORK February 20, 2025 4:0 0am Chief Complaint Admit Date LABWORK February 05, 2025 5:56a m LABOWRK February 07, 2025 5:00a m Chief Complaint Admit Date LABWORK February 05, 2025 5:56a m LABOWRK February 07, 2025 5:00a m HALF-WAY LAB WORK February 08, 2025 5:0 0am HALF-WAY LAB WORK February 12, 2025 5:0 0am HALF-WAY LAB WORK February 13, 2025 5:0 0am HALF-WAY LAB WORK February 15, 2025 5:0 0am HALF-WAY LAB WORK February 20, 2025 4:0 0am Additional Source Comments Source Comments (unrecognize d section and content) In the event this informatio n is protected by the Federal Confidentiality of Alcohol and Drug Abuse Patient Records regulations: The Federal rules restrict any use of the information to criminally investigate or prosecute any alcohol or drug abuse patient.[facility] Hospital[facility] the event this information is protected by the Federal Confidentiality of Alcohol and Drug Abuse Patient Records regulations: The Federal rules restrict any use of the information to criminally investigate or prosecute any alcohol or drug abuse patient.[facility] HospitalIn the event this information is protected by the Federal Confidentiality of Alcohol and Drug Abuse Patient Records regulations: The Federal rules restrict any use of the information to criminally investigate or prosecute any alcohol or drug abuse patient.[facility] HospitalIn the event this information is protected by the Federal Confidentiality of Alcohol and Drug Abuse Patient Records regulations: The Federal rules restrict any use of the information to criminally investigate or prosecute any alcohol or drug abuse patient.[facility] HospitalIn the event this information is protected by the Federal Confidentiality of Alcohol and Drug Abuse Patient Records regulations: The Federal rules restrict any use of the information to criminally investigate or prosecute any alcohol or drug abuse patient.[facility] HospitalIn the event this information is protected by the Federal Confidentiality of Alcohol and Drug Abuse Patient Records regulations: The Federal rules restrict any use of the information to criminally investigate or prosecute any alcohol or drug abuse patient.[facility] HospitalIn the event this information is protected by the Federal Confidentiality of Alcohol and Drug Abuse Patient Records regulations: The Federal rules restrict any use of the information to criminally investigate or prosecute any alcohol or drug abuse patient.[facility] HospitalIn the event this information is protected by the Federal Confidentiality of Alcohol and Drug Abuse Patient Records regulations: The Federal rules restrict any use of the information to criminally investigate or prosecute any alcohol or drug abuse patient.[facility] (unrecognized sect ion and content) No Status Records FoundNo Status Records FoundNo Status Records FoundNo Status Records FoundNo Status Records FoundNo Status Records Found INFORMATION SOURCE (unrecogn ized section and content) DATE CREATED AUTHOR 11/26/2020 [facility] DATE CREATED AUTHOR AUTHOR'S ORGANIZ ATION 09/18/2021 [facility] DATE CREATED AUTHOR AUTHOR'S ORGANIZ ATION 12/18/2022 [facility] DATE CREATED AUTHOR AUTHOR'S ORGANIZ ATION 04/16/2024 [facility] DATE CREATED AUTHOR AUTHOR'S ORGANIZ ATION 04/28/2025 [facility] DATE CREATED AUTHOR AUTHOR'S ORGANIZ ATION 05/01/2025 [facility] Continuous Active and Recently Administ ered [...] sodium chloride 0.9 % 100 mL IVPB (Add-[place]) 3,000 mg, IntraVENous, at 200 mL/hr, Administer over 30 Minutes, Every 24 hours, First dose on Wed01/25/25 at 1700, ADD-[place] bag, Suspected Indication (Select all that apply): Bone and Joint Infection 1837 (New Bag - Provider: Miriam Reza, SWEETIE)2012 (Stopped - Provider: Casandra Rose RN) 1645 (New Bag - Provider: Angella M. Av, RN)1715 (Due: Stopped - Provider: Angella Ley RN) 1700 (Canceled Entry - Provider: Automatic Discharge Provider - Comment: Automatically canceled at discontinue of medication order) ampicillin-sulbactam (Unasyn) 3,000 mg in sodium chloride 0.9 % 100 mL IVPB (Add-[place]) (CANCELED) 3,000 mg, IntraVENous, at 200 mL/hr, Administer over 30 Minutes, Every 24 hours, First dose on Wed02/01/25 at 1030, For 13 days, ADD-[place] bag, Suspected Indication (Select all that apply): [...] RN)2204 (Medication Removed - Provider: Casandra Rose, RN) 0900 (Canceled Entry - Provider: Automatic [...] Jun Borrero MD) lidocaine-EPINEPHrine (Xylocaine W/EPI) 1 %-1:112408 injection (COMPLETED) As needed, Starting on Wed01/30/25 [...] pupils, Starting on Wed01/19/25 at 0614, +++notify finish production manager provider if used+++ oxyCODONE (Roxicodone) immediate [...] Bey RN)0438 (New Bag - Provider: Rosio Bey, [...] at 2200 2120 (Given - Provider: Rudolph Najera, SWEETIE) 2123 (Given - Provider: Rosio Bey, SWEETIE) sevelamer [...] 1 dose 1612 (Given - Provider: Liv Grimaldo, SWEETIE) warfarin (Coumadin) tablet 7.5 mg (COMPLETED) [...] Johnson, SWEETIE)1032 (Handoff - Provider: Ochoa Johnson, SWEETIE)192 (Handoff - Provider: Susanna Jackson RN) 022 [...] sedation for opioid reversal - MUST notify finish production manager provider immediately after first dose, may [...] Whitney Dobbins RN)2102 (Given - Provider: Rosio Bey RN) 0936 (Given - Provider: Whitney Dobbins RN)2123 (Given - Provider: Mir Cannon, SWEETIE) 0843 (Given - Provider: Christopher Chen RN) [...] refused) 1005 (Not Given - Provider: Christopher Cehn RN - Reason: Patient/family refused) warfarin (Coumadin) [...] Care Teams (unrecognized sec tion and content) Tractor Mechanic Relationship Specialty Start Date End Date Daryn Loomis MD [address] [facility] [place] [address] PCP - General Family Medicine 12/18/20 Tractor Mechanic Relationship Specialty Start Date End Date Candido Starr MD [address] [facility] [address] [place] [phone] Nephrology 02/22/20 Tractor Mechanic Relationship Specialty Start Date End Date Candido Starr MD [address] [facility] [address] [place] [phone] Nephrology 02/22/20 Tractor Mechanic Relationship Specialty Start Date End Date Candido Starr MD [address] [facility] [address] [place] [phone] Nephrology 02/22/20 Tractor Mechanic Relationship Specialty Start Date End Date Daryn Loomis MD [address] [place] [phone] PCP - General 12/18/20 Tractor Mechanic Relationship Specialty Start Date End Date Daryn Loomis MD [address] [place] [phone] PCP - General 12/18/20 Tractor Mechanic Relationship Specialty Start Date End Date Daryn Loomis MD [address] [place] [phone] PCP - General 12/18/20 Tractor Mechanic Relationship Specialty Start Date End Date Daryn Loomis MD [address] [place] [phone] PCP - General 12/18/20 Tractor Mechanic Relationship Specialty Start Date End Date Daryn Loomis MD [address] [place] [phone] PCP - General 12/18/20 Tractor Mechanic Relationship Specialty Start Date End Date Daryn Loomis MD [address] [place] [phone] PCP - General 12/18/20 Tractor Mechanic Relationship Specialty Start Date End Date Daryn Loomis MD [address] [place] [phone] PCP - General 12/18/20 Tractor Mechanic Relationship Specialty Start Date End Date Daryn Loomis MD [address] [place] [phone] PCP - General 12/18/20 Tractor Mechanic Relationship Specialty Start Date End Date Candido Starr MD [address] [place] [phone] Nephrology 02/22/20 Tractor Mechanic Relationship Specialty Start Date End Date Candido Starr MD [address] [place] [phone] Nephrology 02/22/20 Tractor Mechanic Relationship Specialty Start Date End Date Daryn Loomis MD [address] [place] [phone] PCP - General 12/18/20 Tractor Mechanic Relationship Specialty Start Date End Date Leilani [place]roncos[place] [address] [place] [phone] PCP - General Family Medicine 10/03/24 Tractor Mechanic Relationship Specialty Start Date End Date Leilani Troncoso [address] [place] [phone] PCP - General Family Medicine 10/03/24 Tractor Mechanic Relationship Specialty Start Date End Date Leilani Troncoso [address] [place] [phone] PCP - General Family Medicine 10/03/24 Tractor Mechanic Relationship Specialty Start Date End Date Leilani Troncoso [address] [place] [phone] PCP - General Family Medicine 10/03/24 Tractor Mechanic Relationship Specialty Start Date End Date Leilani Troncoso [address] [place], [phone] PCP - General Family Medicine 10/03/24 Tractor Mechanic Relationship Specialty Start Date End Date [place] [phone] PCP - General Family Medicine 10/03/24 Tractor Mechanic Relationship Specialty Start Date End Date [place] [phone] PCP - General Family Medicine 10/03/24 Tractor Mechanic Relationship Specialty Start Date End Date Le[place] [phone] PCP - General Family Medicine 10/03/24 Tractor Mechanic Relationship Specialty Start Date End Date Leilani Troncoso [address] [place] [phone] PCP - General Family Medicine 10/03/24 Tractor Mechanic Relationship Specialty Start Date End Date Leilani Troncoso [address] [place] [phone] PCP - General Family Medicine 10/03/24 Tractor Mechanic Relationship Specialty Start Date End Date Leilani Troncoso [address] [place], [phone] PCP - General Family Medicine 10/03/24 Tractor Mechanic Relationship Specialty Start Date End Date Leilani Troncoso [address], [phone] PCP - General Family Medicine 10/03/24 Tractor Mechanic Relationship Specialty Start Date End Date Leilani Troncoso [address], [phone] PCP - General Family Medicine 10/03/24 Tractor Mechanic Relationship Specialty Start Date End Date Leilani Troncoso [address], [phone] PCP - General Family Medicine 10/03/24 Tractor Mechanic Relationship Specialty Start Date End Date Leilani Troncoso [address], [phone] PCP - General Family Medicine 10/03/24 Tractor Mechanic Relationship Specialty Start Date End Date Leilani Troncoso [address] [place] [phone] PCP - General Family Medicine 10/03/24 Tractor Mechanic Relationship Specialty Start Date End Date Leilani Troncoso [address] [place] [phone] PCP - General Family Medicine 10/03/24 Tractor Mechanic Relationship Specialty Start Date End Date Leilani Troncoso [address] [place] [phone] PCP - General Family Medicine 10/03/24 Tractor Mechanic Relationship Specialty Start Date End Date Leilani Troncoso [address], [phone] PCP - General Family Medicine 10/03/24 Tractor Mechanic Relationship Specialty Start Date End Date Leilani Troncoso [address] [place] [address] PCP - General Family Medicine 10/03/24 Tractor Mechanic Relationship Specialty Start Date End Date Leilani Troncoso [address] [place] [phone] PCP - General Family Medicine 10/03/24 Tractor Mechanic Relationship Specialty Start Date End Date Leilani Troncoso [address] [place] [phone] PCP - General Family Medicine 10/03/24 Tractor Mechanic Relationship Specialty Start Date End Date Leilani Troncoso [address] [place] [phone] PCP - General Family Medicine 10/03/24 Tractor Mechanic Relationship Specialty Start Date End Date Leilani Troncoso [address] [place] [phone] PCP - General Family Medicine 10/03/24 Tractor Mechanic Relationship Specialty Start Date End Date Thania Troncosoh [address] [place] [phone] PCP - General Family Medicine 10/03/24 Tractor Mechanic Relationship Specialty Start Date End Date Leilani Troncoso [address] [place] [phone] PCP - General Family Medicine 10/03/24 Team [...] Attending Provider Active Start: February 20, 2025 Tractor Mechanic Relationship Specialty Start Date End Date Leilani Troncoso [address] [place] [phone] PCP - General Family Medicine 10/03/24 Tractor Mechanic Relationship Specialty Start Date End Date Leilani Troncoso [address] [place] [address] PCP - General Family Medicine 10/03/24 Tractor Mechanic Relationship Specialty Start Date End Date Leilani Troncoso [address] [place] [phone] PCP - General Family Medicine 10/03/24 Tractor Mechanic Relationship Specialty Start Date End Date Leilani Troncoso [address] [place] [address] PCP - General Family Medicine 10/03/24 Tractor Mechanic Relationship Specialty Start Date End Date Leilani Troncoso [address] [place], [phone] PCP - General Family Medicine 10/03/24 Tractor Mechanic Relationship Specialty Start Date End Date Leilani Troncoso [address] [place] [phone] PCP - General Family Medicine 10/03/24 Team [...] February 20, 2025 End: February 20, 2025 Tractor Mechanic Relationship Specialty Start Date End Date Leilani Troncoso [facility] [phone] PCP - General Family Medicine 10/03/24 Team [...] February 12, 2025 End: February 12, 2025 Tractor Mechanic Relationship Specialty Start Date End Date AbaLeilani ramos [address] [place] [phone] PCP - General Family Medicine 10/03/24 Tractor Mechanic Relationship Specialty Start Date End Date Leilani Tron[place]o [address] [place] [phone] PCP - General Family Medicine 10/03/24 Tractor Mechanic Relationship Specialty Start Date End Date Thania Troncosoh [address] [place] [address] PCP - General Family Medicine 10/03/24 Tractor Mechanic Relationship Specialty Start Date End Date Thania Troncosoh [address] [place] [address] PCP - General Family Medicine 10/03/24 Tractor Mechanic Relationship Specialty Start Date End Date Thania Troncosoh [address] [place] [address] PCP - General Family Medicine 10/03/24 Reason for Visit (unrecogniz ed section and content) Reason Comments Emesis Diarrhea Oral Swelling Reason Comments Hemoglobin drop 6.8 Rectal bleeding- lab s in Care Everywhere under Summarization Reason Comments Procedure Reason Comments jeffrey carlsonisten Reason Comments please advise Reason Comments Sore [...] Diagnoses New onset a-fib (CMS/HCC) ([facility]) Procedures . Earlene Irving MD [address] [place] [address] [facility] Emergency Dept [address] [place] [address] Referral ID Status Reason Start Date Expiration Date Visits Re quested Visits Authorized [id number] 1 Reason Onset Date Comments Cancelled [...] Diagnoses Complication of tracheostomy (CMS/HCC) ([facility]) Procedures . Bruce Nguyen MD [address] [place] [address] Phone: tel: fax: [facility] Medical Intensive Care Unit MICU [address] [place] [address] Phone: tel: Referral ID Status Reason Start Date Expiration Date Visits Re quested Visits Authorized [id number] 1 1 Reason Onset Date Comments Anticoagulation [...] was bright red and it stopped just [employer] when in transport. Specialty Diagnoses / Procedures Referred By Contac t Referred To Contact Diagnoses Hemoptysis Procedures . Bettye Pierre MD [address] [place] [address] Phone: tel: fax: [facility] Trauma Neuro Progressive Care Unit PCU [address] [place] [address] Phone: tel: Referral ID Status Reason Start Date Expiration Date Visits Re quested Visits Authorized [id number] 1 1 Reason Onset Date Comments Appointment 02/23/2025 Reason Comments Shortness of Breath Pt arrived from [facility] via EMS. Pt was starting dialysis and feeling short of breath dialysis was stopped and sent to the hospital to be evaluated. Specialty Diagnoses / Procedures Referred By Manny dodd Referred To Contact Diagnoses SOB (shortness of breath) Procedures 0 Rubi Sanon MD [address] [place] [address] Phone: tel: fax: [facility] Cardiac Progressive Care Unit PCU [address] [place] [address] Phone: tel: Referral ID Status Reason Start [...] 04/11/2025 Reason Comments Other INR high 10.5 Reason Onset Date Comments Appointment 04/25/2025 Goals (unrecognized section and content) Goals may [...] BE BASED ON THE PRIMARY CLINICAL RECORDS. [facility] [employer] [facility]. provides no warranty or guarantee of the accuracy or completeness of information in this document.
[2025-05-03 09:32] LABS: Prothrombin Time (Protime)PT. 52.4 SECONDS (11.7-14.9)
== END ==
LOC: OLS.SANC 05:00
PROVIDERS: Visit Provider Internal Medicine
DX: Z79.01 Long term (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 anticoagulants (principal)
CPT/HCPCS: 36415; 85610

== ENCOUNTER → 2025-05-04 04:00 | Outpatient (REF) | payer MEDICARE, SELFPAY ==
--- OUTSIDE RECORDS SUMMARY | 2025-05-04 03:15 | XMS RPT_ITS | CCD ---
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 Radial Drill Operator For Plastic Name Role Phone Candido Starr Unavailable Unavailable Primary Care Provider Unavailrickey Loomis MD, Daryn Cali Primary Care Provider 1( [phone] Unavailable Primary Care Provider UnavailCandido Hardy MD Unavailable Daryn Loomis MD Primary Care Provider Candido Starr MD Unavailable [facility] Primary Care Provider [facility] Primary Care Provider Kayley Melendrez MD Attending Provider Unava ilable Jayesh Nguyen Attending Provider Unavailab Kayley Cm MD Referring Provider Unava ilable BARB DAWKINS Attending Unavailable JUNE CHAPARRO Consulting Unavailable QUIANA JEFFERY Admitting Unavailable [facility] Primary Care Unavailable DIETER VILLEGAS Attending Unavailable [facility] Primary Care Unavailable LUCIANO MONTEMAYOR Attending Unavailable MONTEMAYOR, LUCIANO Admitting Unavailable DA, JAYAPRAKASH Consulting Unavailable [facility] Primary Care Unavailable ELDON ALBA Consulting Unavailable TIFFANIE VILLEGAS Consulting Unavailable DARYN SANTACRUZ Consulting Unavailable CALI ARREDONDO Consulting Unavailable ANU CASTRO Attending Unavailable WELLINGTON NICOLE Consulting Unavailable RUBI SANON Admitting Unavailable [facility] Primary Care Unavailable [facility] Primary Care Unavailable KEIRY SOLARES Attending Unavailable [facility] Primary Care Unavailable ANTHONY HURTADO Attending Unavailable BONNIE, WELLINGTON Consulting Unavailable BETTYE PIERRE Admitting Unavailable ABA, LEILANI Primary Care Unavailable ABA, LEILANI Primary Care Unavailable FRANK, JESE Referring Unavailable ABA, LEILANI Primary Care Unavailable ELIZABETH, ELLY Referring Unavailable ABA, LEILANI Primary Care Unavailable [...] Attending Unavailable ABA, LEILANI Primary Care Unavailable FRNAK, JESE Referring Unavailable Mukkamalla OLS, Mahaveer Referring Unavail able [...] Mahaveer Attending Unavail able Katsaros OLS, Peter Referring Unavailable Katsaros OLS, Peter Attending Unavailable Katsaros OLS, Peter Attending Unavailable Katsaros OLS, Peter Attending Unavailable Mukkamalla OLS, Mahaveer Attending Unavail able Mukkamalla OLS, Mahaveer Attending Unavail able Mukkamalla OLS, Mahaveer Attending Unavail able Mukkamalla OLS, Mahaveer Attending Unavail able Mukkamalla OLS, Mahaveer Attending Unavail able Kayley Jones Referring Unavail able Kayley Jones Attending Unavail able Allergies Allergy Classification Reported Allergen(s) Allergy Type Date of Onset Reaction(s) Facility (11 sources) Lisinopril Drug Allergy 0 Swelling [facility] Work Phone: (20 sources) Lisinopril Allergy to substance 2 Swelling, Angioedema [facility] Medications Current Medications Medication [...] emollient (Biafine) cream (5 sources) Start: 05-01-20 23 emollient (Biafine) cream Apply topically 2 times [...] MG tablet Indications: ESRD on hemodialysis (CMS/HCC) ([facility]) Take 1 tablet (800 mg) by mouth [...] with meals. Take 3 tablets by mo [facility] three times daily with meals. sodium chloride [...] tablet 650 mg 20 ml albumin human, 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 250 mg/ml injection (1 source) Human Serum [...] sodium chloride 0.9 % 100 mL IVPB (Add-Castleton) (2 sources) Start: 02-01-2025 End: 02-01-2025 anidulafungin [...] End: 01-22-2025 Start: 01-22-2025 End: 01-22-2025 B Neucvzo-N-Ynxuv Acid (NEPHRO-NATO) 0.8 MG TABS (1 source) Start: 10-14-2020 take 1 tablet by mouth once daily B Sholtvw-Q-Sxlye Acid (NEPHRO-NATO) 0.8 MG TABS TAKE 1 [...] at 1024, Anesthesia Intraprocedure epoetin rowan-epbx (Retacrit) 41172 UNIT/ML injection (20 sources) Start: 12-04-2024 End: 02-21-2025 inject 0.79 mL by subcutaneous injection every week epoetin rowan-epbx (Retacrit) 26255 UNIT/ML injection Indications: ESRD on Dialysis Inject 0.79 mL (7,900 Units) under the skin 1 (one) time per week. 12/04/2024 02/21/2025 Discontinued (Discontinued by another clinician) Start: 12-04-2024 inject 0.79 mL by bangura bcutaneous injection every week epoetin rowan-epbx (Retacrit) 40486 UNIT/ML injection Indications: ESRD on Dialysis Inject [...] release tablet Indications: Complication of tracheostomy (CMS/HCC) ([facility]) , Sacral osteomyelitis (CMS/HCC) (HCC) , Decubitus ulcer of sacral region, unstageable ([facility]) Take 1 tablet (5 mg) by mouth [...] End: 10-12-2024 IntraVENous, As needed, Starting on Birgid 10/12/24 at 1024, Anesthesia Intraprocedure polyethylene glycol 3350 86778 mg powder for oral solution (6 sources) [...] sodium chloride 5860 mg / sodium sulfate 07030 mg powder for oral solution (6 sources) [...] 1105, Anesthesia Intraprocedure 25 ml protamine sulfate (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) 10 mg/ml injection (1 source) Start: 10-12-2024 [...] Long-term current use of antibiotic; Translations: [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] Onset: 01-12-2025 01-12-2025 Episodic Other aftercare (2 sources) 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; Translations: [senior care (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 anticoagulants] Onset: 03-24-2025 Episodic Other aftercare (1 source) Other edge roller (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, [address] PT Coag (PPP) [Time] 52.4 s High 11.7-14.9 [facility] Comment on above: Order Comment: 412.2 Performed By: #### L 100.0100, L500.4050, L300.3900 #### [facility] [address] [place], [address] CBC W/Diff, Automatedon 08-0 -2024 Absolute Lymph 1.23 X10 3/uL Normal 0.83-4.51 [facility] Comment on above: Order Comment: 413.2 Performed By: #### L 300.3900, L500.4050, L100.0100 #### [facility] [address] [place], [address] Absolute Neut 5.0 X10 3/uL Normal 2.0-7.7 [facility] Comment on above: Order Comment: 413.2 Performed By: #### L 300.3900, L500.4050, L100.0100 #### [facility] [address] [place], [address] Basophils/100 WBC (Bld) 1.5 % High 0-1 [facility] Comment on above: Order Comment: 413.2 Performed By: #### L 300.3900, L500.4050, L100.0100 #### [facility] [address] [place], [address] Eosinophils/100 WBC (Bld) 5.9 % High 0-5 [facility] Comment on above: Order Comment: 413.2 Performed By: #### L 300.3900, L500.4050, L100.0100 #### [facility] [address] [place], [address] Erythrocyte distribution width (RBC) [Ratio] 16.7 % High 11.6-14.6 [facility] Comment on above: Order Comment: 413.2 Performed By: #### L 300.3900, L500.4050, L100.0100 #### [facility] [address] [place], [address] Hematocrit (Bld) [Volume fraction] 30.4 % Low 40-54 [facility] Comment on above: Order Comment: 413.2 Performed By: #### L 300.3900, L500.4050, L100.0100 #### [facility] [address] [place], [address] Hemoglobin (Bld) [Mass/Vol] 9.7 g/dL Low 13.0-16.5 [facility] Comment on above: Order Comment: 413.2 Performed By: #### L 300.3900, L500.4050, L100.0100 #### [facility] [address] [place], [address] IG% 0.400 Normal 0.0-0.9 [facility] Comment on above: Order Comment: 413.2 Result Comment: IG% - Immature Granulocytes (promyelocytes, myelocytes and metamyelocytes) > 1% indicates that a LEFT SHIFT is Present. Performed By: #### L 300.3900, L500.4050, L100.0100 #### [facility] [address] [place], [address] Lymphocytes/100 WBC (Bld) 15.7 % Low 19-41 [facility] Comment on above: Order Comment: 413.2 Performed By: #### L 300.3900, L500.4050, L100.0100 #### [facility] [address] [place], [address] MCH (RBC) [Entitic mass] 29.0 pg Normal 27.0-32.0 [facility] Comment on above: Order Comment: 413.2 Performed By: #### L 300.3900, L500.4050, L100.0100 #### [facility] [address] [place], [address] MCHC (RBC) [Mass/Vol] 31.9 g/dL Low 32-36 [facility] Comment on above: Order Comment: 413.2 Performed By: #### L 300.3900, L500.4050, L100.0100 #### [facility] [address] [place], [address] MCV (RBC) [Entitic vol] 90.7 fL Normal 80-94 [facility] Comment on above: Order Comment: 413.2 Performed By: #### L 300.3900, L500.4050, L100.0100 #### [facility] [address] [place], [address] Monocytes/100 WBC (Bld) 12.7 % High 0-10 [facility] Comment on above: Order Comment: 413.2 Performed By: #### L 300.3900, L500.4050, L100.0100 #### [facility] [address] [place], [address] Neutrophils/100 WBC (Bld) 63.8 % Normal 47-70 [facility] Comment on above: Order Comment: 413.2 Performed By: #### L 300.3900, L500.4050, L100.0100 #### [facility] [address] [place], [address] Nucleated RBC (Bld) [#/Vol] 0 10*3/uL Normal 0-5 [facility] Comment on above: Order Comment: 413.2 Performed By: #### L 300.3900, L500.4050, L100.0100 #### [facility] [address] [place], [address] Platelet mean volume (Bld) [Entitic vol] 9.1 fL Normal 6.2-12.0 [facility] Comment on above: Order Comment: 413.2 Performed By: #### L 300.3900, L500.4050, L100.0100 #### [facility] [address] [place], [address] Platelets (Bld) [#/Vol] 294 10*3/uL Normal 150-450 [facility] Comment on above: Order Comment: 413.2 Performed By: #### L 300.3900, L500.4050, L100.0100 #### [facility] [address] [place], [address] RBC (Bld) [#/Vol] 3.35 10*6/uL Low 4.6-6.2 [facility] Comment on above: Order Comment: 413.2 Performed By: #### L 300.3900, L500.4050, L100.0100 #### [facility] [address] [place], [address] RDW SD 55.3 fl High 35.1-43.9 [facility] Comment on above: Order Comment: 413.2 Performed By: #### L 300.3900, L500.4050, L100.0100 #### [facility] [address] [place], [address] WBC (Bld) [#/Vol] 7.8 10*3/uL Normal 4.4-11.0 [facility] Comment on above: Order Comment: 413.2 Performed By: #### L 300.3900, L500.4050, L100.0100 #### [facility] [address] [place], [address] Comprehensive Metabolic Prof ilon 04-30-2025 Albumin [Mass/Vol] 3.2 g/dL Low 3.5-5.0 [facility] Comment on above: Order Comment: 413.2 Performed By: #### L 300.3900, L500.4050, L100.0100 #### [facility] [address] [place], [address] Albumin/Globulin [Mass ratio] 0.7 {ratio} Low 0.9-2.4 [facility] Comment on above: Order Comment: 413.2 Performed By: #### L 300.3900, L500.4050, L100.0100 #### [facility] [address] [place], [address] ALK PHOS 347 U/L High 40-129 [facility] Comment on above: Order Comment: 413.2 Performed By: #### L 300.3900, L500.4050, L100.0100 #### [facility] [address] [place], [address] ALT [Catalytic activity/Vol] 9 U/L Normal <=46 [facility] Comment on above: Order Comment: 413.2 Performed By: #### L 300.3900, L500.4050, L100.0100 #### [facility] [address] [place], [address] AST [Catalytic activity/Vol] 30 U/L Normal <=37 [facility] Comment on above: Order Comment: 413.2 Performed By: #### L 300.3900, L500.4050, L100.0100 #### [facility] [address] [place], [address] Bilirubin [Mass/Vol] 0.70 mg/dL Normal 0.00-1.30 [facility] Comment on above: Order Comment: 413.2 Performed By: #### L 300.3900, L500.4050, L100.0100 #### [facility] [address] [place], [address] BUN/CRE 10.0 RATIO Normal 10-20 [facility] Comment on above: Order Comment: 413.2 Performed By: #### L 300.3900, L500.4050, L100.0100 #### [facility] [address] [place], [address] Calcium [Mass/Vol] 9.8 mg/dL Normal 7.6-11.0 [facility] Comment on above: Order Comment: 413.2 Performed By: #### L 300.3900, L500.4050, L100.0100 #### [facility] [address] [place], [address] Chloride [Moles/Vol] 93 mmol/L Low 98-108 [facility] Comment on above: Order Comment: 413.2 Performed By: #### L 300.3900, L500.4050, L100.0100 #### [facility] [address] [place], [address] CO2 [Moles/Vol] 24.2 mmol/L Normal 21.0-32.0 [facility] Comment on above: Order Comment: 413.2 Performed By: #### L 300.3900, L500.4050, L100.0100 #### [facility] [address] [place], [address] Creatinine [Mass/Vol] 6.05 mg/dL High 0.70-1.20 [facility] Comment on above: Order Comment: 413.2 Performed By: #### L 300.3900, L500.4050, L100.0100 #### [facility] [address] [place], [address] GAP 13 Normal 5-15 [facility] Comment on above: Order Comment: 413.2 Performed By: #### L 300.3900, L500.4050, L100.0100 #### [facility] [address] [place], [address] GFR/1.73 sq M.predicted among non-blacks MDRD (S/P/Bld) [Vol rate/Area] 10 mL/min/{1.73_m2} Low >60 [facility] Comment on above: Order Comment: 413.2 Result Comment: mL/m in/1.73m2 CKD-EPI Creatinine Equation (2020) Performed By: #### L 300.3900, L500.4050, L100.0100 #### [facility] [address] [place], [address] Globulin (S) [Mass/Vol] 4.5 g/dL High 2.2-4.2 [facility] Comment on above: Order Comment: 413.2 Performed By: #### L 300.3900, L500.4050, L100.0100 #### [facility] [address] [place], [address] Glucose [Mass/Vol] 111 mg/dL High 70-99 [facility] Comment on above: Order Comment: 413.2 Performed By: #### L 300.3900, L500.4050, L100.0100 #### [facility] [address] [place], [address] Potassium [Moles/Vol] 6.3 mmol/L Invalid Interpretation Code 3.3-5.1 [facility] Comment on above: Order Comment: 413.2 Result Comment: Crit ical Result(s) Called at 0943: by: JOSHUA SYED TO [facility]. ??Results read back by same. Performed By: #### L 300.3900, L500.4050, L100.0100 #### [facility] [address] [place], [address] Sodium [Moles/Vol] 131 mmol/L Low 133-145 [facility] Comment on above: Order Comment: 413.2 Performed By: #### L 300.3900, L500.4050, L100.0100 #### [facility] [address] [place], [address] T PROT 7.8 g/dL Normal 5.9-8.4 [facility] Comment on above: Order Comment: 413.2 Performed By: #### L 300.3900, L500.4050, L100.0100 #### [facility] [address] [place], [address] Urea nitrogen [Mass/Vol] 61 mg/dL High 4-19 [facility] Comment on above: Order Comment: 413.2 Performed By: #### L 300.3900, L500.4050, L100.0100 #### [facility] [address] [place], [address] Prothrombin Time w/INRon INR Coag (PPP) [Relative time] 2.6 {INR} Normal [facility] Comment on above: Order Comment: 413.2 Performed By: #### L 300.3900, L500.4050, L100.0100 #### [facility] [address] [place], [address] PT Coag (PPP) [Time] 28.7 s High 11.7-14.9 [facility] Comment on above: Order Comment: 413.2 Performed By: #### L 300.3900, L500.4050, L100.0100 #### [facility] [address] [place], [address] Prothrombin Time w/INRon INR Coag (PPP) [Relative time] 2.3 {INR} Normal [facility] Comment on above: Order Comment: 412.2 Performed By: #### L 100.0100, L500.4050, L300.3900 #### [facility] [address] [place], [address] PT Coag (PPP) [Time] 26.2 s High 11.7-14.9 [facility] Comment on above: Order Comment: 412.2 Performed By: #### L 100.0100, L500.4050, L300.3900 #### [facility] [address] [place], [address] 36on 04-25-2025 36 Normal [facility] Prothrombin Time w/INRon INR Coag (PPP) [Relative time] 3.0 {INR} Normal [facility] Comment on above: Order Comment: 412-2 Performed By: #### L 300.3900 #### [facility] [address] [place], [address] PT Coag (PPP) [Time] 31.5 s High 11.7-14.9 [facility] Comment on above: Order Comment: 412-2 Performed By: #### L 300.3900 #### [facility] [address] [place], [address] Comprehensive Metabolic Prof ilon 04-24-2025 Albumin [Mass/Vol] 3.1 g/dL Low 3.5-5.0 [facility] Comment on above: Order Comment: 412.2 Performed By: #### L 100.0100, L500.4050, L300.3900 #### [facility] [address] [place], [address] Albumin/Globulin [Mass ratio] 0.7 {ratio} Low 0.9-2.4 [facility] Comment on above: Order Comment: 412.2 Performed By: #### L 100.0100, L500.4050, L300.3900 #### [facility] [address] [place], [address] ALK PHOS 373 U/L High 40-129 [facility] Comment on above: Order Comment: 412.2 Performed By: #### L 100.0100, L500.4050, L300.3900 #### [facility] [address] [place], [address] ALT [Catalytic activity/Vol] 9 U/L Normal <=46 [facility] Comment on above: Order Comment: 412.2 Performed By: #### L 100.0100, L500.4050, L300.3900 #### [facility] [address] [place], [address] AST [Catalytic activity/Vol] 32 U/L Normal <=37 [facility] Comment on above: Order Comment: 412.2 Performed By: #### L 100.0100, L500.4050, L300.3900 #### [facility] [address] [place], [address] Bilirubin [Mass/Vol] 0.61 mg/dL Normal 0.00-1.30 [facility] Comment on above: Order Comment: 412.2 Performed By: #### L 100.0100, L500.4050, L300.3900 #### [facility] [address] [place], [address] BUN/CRE 11.1 RATIO Normal 10-20 [facility] Comment on above: Order Comment: 412.2 Performed By: #### L 100.0100, L500.4050, L300.3900 #### [facility] [address] [place], [address] Calcium [Mass/Vol] 10.0 mg/dL Normal 7.6-11.0 [facility] Comment on above: Order Comment: 412.2 Performed By: #### L 100.0100, L500.4050, L300.3900 #### [facility] [address] [place], [address] Chloride [Moles/Vol] 97 mmol/L Low 98-108 [facility] Comment on above: Order Comment: 412.2 Performed By: #### L 100.0100, L500.4050, L300.3900 #### [facility] [address] [place], [address] CO2 [Moles/Vol] 26.3 mmol/L Normal 21.0-32.0 [facility] Comment on above: Order Comment: 412.2 Performed By: #### L 100.0100, L500.4050, L300.3900 #### [facility] [address] [place], [address] Creatinine [Mass/Vol] 4.72 mg/dL High 0.70-1.20 [facility] Comment on above: Order Comment: 412.2 Performed By: #### L 100.0100, L500.4050, L300.3900 #### [facility] [address] [place], [address] GAP 12 Normal 5-15 [facility] Comment on above: Order Comment: 412.2 Performed By: #### L 100.0100, L500.4050, L300.3900 #### [facility] [address] [place], [address] GFR/1.73 sq M.predicted among non-blacks MDRD (S/P/Bld) [Vol rate/Area] 13 mL/min/{1.73_m2} Low >60 [facility] Comment on above: Order Comment: 412.2 Result Comment: mL/m in/1.73m2 CKD-EPI Creatinine Equation (2020) Performed By: #### L 100.0100, L500.4050, L300.3900 #### [facility] [address] [place], [address] Globulin (S) [Mass/Vol] 4.6 g/dL High 2.2-4.2 [facility] Comment on above: Order Comment: 412.2 Performed By: #### L 100.0100, L500.4050, L300.3900 #### [facility] [address] [place], [address] Glucose [Mass/Vol] 86 mg/dL Normal 70-99 [facility] Comment on above: Order Comment: 412.2 Performed By: #### L 100.0100, L500.4050, L300.3900 #### [facility] [address] [place], [address] Potassium [Moles/Vol] 5.6 mmol/L High 3.3-5.1 [facility] Comment on above: Order Comment: 412.2 Performed By: #### L 100.0100, L500.4050, L300.3900 #### [facility] [address] [place], [address] Sodium [Moles/Vol] 135 mmol/L Normal 133-145 [facility] Comment on above: Order Comment: 412.2 Performed By: #### L 100.0100, L500.4050, L300.3900 #### [facility] [address] [place], [address] T PROT 7.7 g/dL Normal 5.9-8.4 [facility] Comment on above: Order Comment: 412.2 Performed By: #### L 100.0100, L500.4050, L300.3900 #### [facility] [address] [place], [address] Urea nitrogen [Mass/Vol] 52 mg/dL High 4-19 [facility] Comment on above: Order Comment: 412.2 Performed By: #### L 100.0100, L500.4050, L300.3900 #### [facility] [address] [place], [address] Prothrombin Time w/INRon INR Coag (PPP) [Relative time] 4.3 {INR} Invalid Interpretation Code [facility] Comment on above: Order Comment: 412.2 Result Comment: CRIT ICAL VALUE CALLED TO JANUSZ PITT ([facility]) 04/24/25 0858 Brett Stack. RESULTS READ BACK BY SAME. Performed By: #### L 100.0100, L500.4050, L300.3900 #### [facility] [address] [place], [address] PT Coag (PPP) [Time] 42.3 s High 11.7-14.9 [facility] Comment on above: Order Comment: 412.2 Performed By: #### L 100.0100, L500.4050, L300.3900 #### [facility] [address] [place], [address] CBC W/Diff, Automatedon 03-28 Absolute Lymph 0.95 X10 3/uL Normal 0.83-4.51 [facility] Comment on above: Order Comment: 412.2 Performed By: #### L 100.0100, L500.4050, L300.3900 #### [facility] [address] [place], [address] Absolute Neut 4.2 X10 3/uL Normal 2.0-7.7 [facility] Comment on above: Order Comment: 412.2 Performed By: #### L 100.0100, L500.4050, L300.3900 #### [facility] [address] [place], [address] Basophils/100 WBC (Bld) 1.5 % High 0-1 [facility] Comment on above: Order Comment: 412.2 Performed By: #### L 100.0100, L500.4050, L300.3900 #### [facility] [address] [place], [address] Eosinophils/100 WBC (Bld) 5.7 % High 0-5 [facility] Comment on above: Order Comment: 412.2 Performed By: #### L 100.0100, L500.4050, L300.3900 #### [facility] [address] [place], [address] Erythrocyte distribution width (RBC) [Ratio] 17.1 % High 11.6-14.6 [facility] Comment on above: Order Comment: 412.2 Performed By: #### L 100.0100, L500.4050, L300.3900 #### [facility] [address] [place], [address] Hematocrit (Bld) [Volume fraction] 29.3 % Low 40-54 [facility] Comment on above: Order Comment: 412.2 Performed By: #### L 100.0100, L500.4050, L300.3900 #### [facility] [address] [place], [address] Hemoglobin (Bld) [Mass/Vol] 9.4 g/dL Low 13.0-16.5 [facility] Comment on above: Order Comment: 412.2 Performed By: #### L 100.0100, L500.4050, L300.3900 #### [facility] [facility] [address] [place], [address] IG% 0.800 Normal 0.0-0.9 [facility] Comment on above: Order Comment: 412.2 Result Comment: IG% - Immature Granulocytes (promyelocytes, myelocytes and metamyelocytes) > 1% indicates that a LEFT SHIFT is Present. Performed By: #### L 100.0100, L500.4050, L300.3900 #### [facility] [address] [place], [address] Lymphocytes/100 WBC (Bld) 14.6 % Low 19-41 [facility] Comment on above: Order Comment: 412.2 Performed By: #### L 100.0100, L500.4050, L300.3900 #### [facility] [address] [place], [address] MCH (RBC) [Entitic mass] 29.6 pg Normal 27.0-32.0 [facility] Comment on above: Order Comment: 412.2 Performed By: #### L 100.0100, L500.4050, L300.3900 #### [facility] [address] [place], [address] MCHC (RBC) [Mass/Vol] 32.1 g/dL Normal 32-36 [facility] Comment on above: Order Comment: 412.2 Performed By: #### L 100.0100, L500.4050, L300.3900 #### [facility] [address] [place], [address] MCV (RBC) [Entitic vol] 92.1 fL Normal 80-94 [facility] Comment on above: Order Comment: 412.2 Performed By: #### L 100.0100, L500.4050, L300.3900 #### [facility] [address] [place], [address] Monocytes/100 WBC (Bld) 12.6 % High 0-10 [facility] Comment on above: Order Comment: 412.2 Performed By: #### L 100.0100, L500.4050, L300.3900 #### [facility] [address] [place], [address] Neutrophils/100 WBC (Bld) 64.8 % Normal 47-70 [facility] Comment on above: Order Comment: 412.2 Performed By: #### L 100.0100, L500.4050, L300.3900 #### [facility] [address] [place], [address] Nucleated RBC (Bld) [#/Vol] 0 10*3/uL Normal 0-5 [facility] Comment on above: Order Comment: 412.2 Performed By: #### L 100.0100, L500.4050, L300.3900 #### [facility] [address] [place], [address] Platelet mean volume (Bld) [Entitic vol] 9.4 fL Normal 6.2-12.0 [facility] Comment on above: Order Comment: 412.2 Performed By: #### L 100.0100, L500.4050, L300.3900 #### [facility] [address] [place], [address] Platelets (Bld) [#/Vol] 357 10*3/uL Normal 150-450 [facility] Comment on above: Order Comment: 412.2 Performed By: #### L 100.0100, L500.4050, L300.3900 #### [facility] [address] [place] [place], [address] RBC (Bld) [#/Vol] 3.18 10*6/uL Low 4.6-6.2 [facility] Comment on above: Order Comment: 412.2 Performed By: #### L 100.0100, L500.4050, L300.3900 #### [facility] [address] [place], [address] RDW SD 57.9 fl High 35.1-43.9 [facility] Comment on above: Order Comment: 412.2 Performed By: #### L 100.0100, L500.4050, L300.3900 #### [facility] [address] [place], [address] WBC (Bld) [#/Vol] 6.5 10*3/uL Normal 4.4-11.0 [facility] Comment on above: Order Comment: 412.2 Performed By: #### L 100.0100, L500.4050, L300.3900 #### [facility] [address] [place], [address] Comprehensive Metabolic Prof joe 04-23-2025 Albumin [Mass/Vol] 3.1 g/dL Low 3.5-5.0 [facility] Comment on above: Order Comment: 412.2 Performed By: #### L 100.0100, L500.4050, L300.3900 #### [facility] [address] [place], [address] Albumin/Globulin [Mass ratio] 0.7 {ratio} Low 0.9-2.4 [facility] Comment on above: Order Comment: 412.2 Performed By: #### L 100.0100, L500.4050, L300.3900 #### [facility] [address] [place], [address] ALK PHOS 352 U/L High 40-129 [facility] Comment on above: Order Comment: 412.2 Performed By: #### L 100.0100, L500.4050, L300.3900 #### [facility] [address] [place], [address] ALT [Catalytic activity/Vol] 8 U/L Normal <=46 [facility] Comment on above: Order Comment: 412.2 Performed By: #### L 100.0100, L500.4050, L300.3900 #### [facility] [address] [place], [address] AST [Catalytic activity/Vol] 32 U/L Normal <=37 [facility] Comment on above: Order Comment: 412.2 Performed By: #### L 100.0100, L500.4050, L300.3900 #### [facility] [address] [place], [address] Bilirubin [Mass/Vol] 0.58 mg/dL Normal 0.00-1.30 [facility] Comment on above: Order Comment: 412.2 Performed By: #### L 100.0100, L500.4050, L300.3900 #### [facility] [address] [place], [address] BUN/CRE 12.2 RATIO Normal 10-20 [facility] Comment on above: Order Comment: 412.2 Performed By: #### L 100.0100, L500.4050, L300.3900 #### [facility] [address] [place], [address] Calcium [Mass/Vol] 10.0 mg/dL Normal 7.6-11.0 [facility] Comment on above: Order Comment: 412.2 Performed By: #### L 100.0100, L500.4050, L300.3900 #### [facility] [address] [place], [address] Chloride [Moles/Vol] 99 mmol/L Normal 98-108 [facility] Comment on above: Order Comment: 412.2 Performed By: #### L 100.0100, L500.4050, L300.3900 #### [facility] [address] [place], [address] CO2 [Moles/Vol] 22.3 mmol/L Normal 21.0-32.0 [facility] Comment on above: Order Comment: 412.2 Performed By: #### L 100.0100, L500.4050, L300.3900 #### [facility] [address] [place], [address] Creatinine [Mass/Vol] 5.69 mg/dL High 0.70-1.20 [facility] Comment on above: Order Comment: 412.2 Performed By: #### L 100.0100, L500.4050, L300.3900 #### [facility] [address] [place], [address] GAP 13 Normal 5-15 [facility] Comment on above: Order Comment: 412.2 Performed By: #### L 100.0100, L500.4050, L300.3900 #### [facility] [address] [place], [address] GFR/1.73 sq M.predicted among non-blacks MDRD (S/P/Bld) [Vol rate/Area] 11 mL/min/{1.73_m2} Low >60 [facility] Comment on above: Order Comment: 412.2 Result Comment: mL/m in/1.73m2 CKD-EPI Creatinine Equation (2020) Performed By: #### L 100.0100, L500.4050, L300.3900 #### [facility] [address] [place], [address] Globulin (S) [Mass/Vol] 4.4 g/dL High 2.2-4.2 [facility] Comment on above: Order Comment: 412.2 Performed By: #### L 100.0100, L500.4050, L300.3900 #### [facility] [address] [place], [address] Glucose [Mass/Vol] 109 mg/dL High 70-99 [facility] Comment on above: Order Comment: 412.2 Performed By: #### L 100.0100, L500.4050, L300.3900 #### [facility] [address] [place], [address] Potassium [Moles/Vol] 5.9 mmol/L High 3.3-5.1 [facility] Comment on above: Order Comment: 412.2 Performed By: #### L 100.0100, L500.4050, L300.3900 #### [facility] [address] [place], [address] Sodium [Moles/Vol] 135 mmol/L Normal 133-145 [facility] Comment on above: Order Comment: 412.2 Performed By: #### L 100.0100, L500.4050, L300.3900 #### [facility] [address] [place], [address] T PROT 7.5 g/dL Normal 5.9-8.4 [facility] Comment on above: Order Comment: 412.2 Performed By: #### L 100.0100, L500.4050, L300.3900 #### [facility] [address] [place], [address] Urea nitrogen [Mass/Vol] 70 mg/dL High 4-19 [facility] Comment on above: Order Comment: 412.2 Performed By: #### L 100.0100, L500.4050, L300.3900 #### [facility] [address] [place], [address] Prothrombin Time w/INRon INR Coag (PPP) [Relative time] 3.5 {INR} Normal [facility] Comment on above: Order Comment: 412.2 Performed By: #### L 100.0100, L500.4050, L300.3900 #### [facility] [address] [place], [address] PT Coag (PPP) [Time] 36.1 s High 11.7-14.9 [facility] Comment on above: Order Comment: 412.2 Performed By: #### L 100.0100, L500.4050, L300.3900 #### [facility] [address] [place], [address] 36on 04-20-2025 36 Normal [facility] Prothrombin Time w/INRon INR Coag (PPP) [Relative time] 2.8 {INR} Normal [facility] Comment on above: Order Comment: 412.2 Performed By: #### L 100.0100, L500.4050, L300.3900 #### [facility] [address] [place], [address] PT Coag (PPP) [Time] 29.8 s High 11.7-14.9 [facility] Comment on above: Order Comment: 412.2 Performed By: #### L 100.0100, L500.4050, L300.3900 #### [facility] [address] [place], [address] Prothrombin Time w/INRon INR Coag (PPP) [Relative time] 3.4 {INR} Normal [facility] Comment on above: Order Comment: 412.2 Performed By: #### L 300.3900 #### [facility] [address] [place], [address] PT Coag (PPP) [Time] 35.0 s High 11.7-14.9 [facility] Comment on above: Order Comment: 412.2 Performed By: #### L 300.3900 #### [facility] [address] [place], [address] Prothrombin Time w/INRon INR Coag (PPP) [Relative time] 5.2 {INR} Invalid Interpretation Code [facility] Comment on above: Order Comment: 412.2 Result Comment: CRIT ICAL VALUE CALLED TO ROCHELLE BERG ([facility]) 04/18/25 0842 Brett Stack. RESULTS READ BACK BY SAME. Performed By: #### L 100.0100, L500.4050, L300.3900 #### [facility] [address] [place], [address] PT Coag (PPP) [Time] 48.9 s High 11.7-14.9 [facility] Comment on above: Order Comment: 412.2 Performed By: #### L 100.0100, L500.4050, L300.3900 #### [facility] [address] [place], [address] Protime w/INR Fingerstickon 04-18-2025 INR Coag (PPP) [Relative time] 6.0 {INR} Invalid Interpretation Code [facility] Comment on above: Result Comment: Crit ical Value > 4.0 Performed By: #### L 300.3900 #### [facility] [address] [place], [place], [address] Protime [place] 56.7 SEC High 11.7-14.9 [facility] Comment on above: Performed By: #### L 300.3900 #### [facility] [address] [place], [place], [address] CBC W Auto Differential pane l (Bld)on [...] [#/Vol] 0 10*3/uL NINF - 0.1 10*3/uL [facility] Immature granulocytes/100 WBC (Bld) 0.4 % 0.0 - 2.0 % [facility] Interpretation and review of laboratory results Abnormal [facility] Lymphocytes (Bld) [#/Vol] 1 10*3/uL 1.0 - 4.3 10*3/uL [facility] Lymphocytes/100 WBC (Bld) 13.3 % Low 15.0 - 45.0 % [facility] MCH (RBC) [Entitic mass] 29.3 pg 26. 0 - 34.0 pg [facility] MCHC (RBC) [Mass/Vol] 32.4 % 30.5 - 36.0 % [facility] MCV (RBC) [Entitic vol] 90.2 fL 77.0 - 99.0 fL [facility] Monocytes (Bld) [#/Vol] 1.1 10*3/uL High 0.0 - 0.9 10*3/uL [facility] Monocytes/100 WBC (Bld) 15.2 % High 5.0 - 13.0 % [facility] Neutrophils (Bld) [#/Vol] 4.8 10*3/uL 1.8 - 7.5 10*3/uL [facility] Neutrophils/100 WBC (Bld) 66.4 % 38.0 - 82.0 % [facility] Nucleated RBC/100 WBC (Bld) [Ratio] 0 % [facility] Platelet mean volume (Bld) [Entitic vol] 9.3 fL 9.0 - 12.7 fL [facility] Platelets (Bld) [#/Vol] 381 10*3/uL 140 - 440 10*3/uL [facility] RBC (Bld) [#/Vol] 3.28 10*6/uL Low 4.40 - 5.9 0 10*6/uL [facility] WBC (Bld) [#/Vol] 7.3 10*3/uL 3.6 - 10.7 10*3/uL [facility] CBC WITH AUTO DIFFERENTIALon 04-17-2025 Basophils (Bld) [#/Vol] 0.1 10*3/uL Normal 0.0-0.2 [facility] Comment on above: Performed By: #### L [id number] ####Phys Assistant: FENG CONSTANTINO ([id number])[facility] ([facility])[address] Basophils/100 WBC (Bld) 1.4 % Normal 0.0-2.0 [facility] Comment on above: Performed By: #### L [id number] ####Phys Assistant: FENG CONSTANTINO ([phone])[facility] ([facility])[address] Eosinophils (Bld) [#/Vol] 0.2 10*3/uL Normal 0.0-0.5 [facility] Comment on above: Performed By: #### L [id number] ####Phys Assistant: FENG CONSTANTINO ([phone])[facility] ([facility])[address] Eosinophils/100 WBC (Bld) 3.3 % Normal 0.0-6.0 [facility] Comment on above: Performed By: #### L [id number] ####Phys Assistant: FENG CONSTANTINO ([phone])[facility] [place] [place] ([facility] Erythrocyte distribution width (RBC) [Ratio] 16.6 % High 11.5-15.0 [facility] Comment on above: Performed By: #### L [id number] ####Phys Assistant: FENG COLEGEORGE ([phone])[facility] ([facility])[address] Hematocrit (Bld) [Volume fraction] 29.6 % Low 40.0-52.0 [facility] Comment on above: Performed By: #### L [id number] ####Phys Assistant: FENG CONSTANTINO ([phone])[facility] ([facility])[address] Hemoglobin (Bld) [Mass/Vol] 9.6 g/dL Low 13.0-18.0 [facility] Comment on above: Performed By: #### L [id number] ####Phys Assistant: FENG CONSTANTINO ([id number])[facility] ([facility])[address] IMMATURE GRANS % 0.4 % Normal 0.0-2.0 [facility] Comment on above: Performed By: #### L [id number] ####Phys Assistant: FENG CONSTANTINO ([phone])[facility] ([facility])[address] IMMATURE GRANS ABSOLUTE 0.0 10*3/uL Normal <0.1 [facility] Comment on above: Performed By: #### L [id number] ####Phys Assistant: FENG CONSTANTINO ([phone])[facility] [place] ([facility])[address] Lymphocytes (Bld) [#/Vol] 1.0 10*3/uL Normal 1.0-4.3 [facility] Comment on above: Performed By: #### L [id number] ####Phys Assistant: FENG CONSTANTINO ([phone])[facility] [place] ([facility])[address] Lymphocytes/100 WBC (Bld) 13.3 % Low 15.0-45.0 [facility] Comment on above: Performed By: #### L [id number] ####Phys Assistant: FENG CONSTANTINO ([id number])[facility] ([facility])[address] [place] [address] MCH (RBC) [Entitic mass] 29.3 pg Normal 26.0-34.0 [facility] Comment on above: Performed By: #### L [id number] ####Phys Assistant: FENG CONSTANTINO ([id number])[facility] ([facility])[address] [place] [address] MCHC 32.4 % Normal 30.5-36.0 [facility] Comment on above: Performed By: #### L [id number] ####Phys Assistant: FENG CONSTANTINO ([id number])[facility] [place] ([facility])[address] [place] [address] MCV (RBC) [Entitic vol] 90.2 fL Normal 77.0-99.0 [facility] Comment on above: Performed By: #### L [id number] ####Phys Assistant: FENG CONSTANTINO ([phone])[facility] ([facility])[address] [place] [address] Monocytes (Bld) [#/Vol] 1.1 10*3/uL High 0.0-0.9 [facility] Comment on above: Performed By: #### L [id number] ####Phys Assistant: FENG CONSTANTINO ([id number])[facility] [place] ([facility])[address] Monocytes/100 WBC (Bld) 15.2 % High 5.0-13.0 [facility] Comment on above: Performed By: #### L [id number] ####Phys Assistant: FENG CONSTANTINO ([id number])[facility] [place] ([facility])[address] NEUTROPHILS ABSOLUTE 4.8 10*3/uL Normal 1.8-7.5 [facility] Comment on above: Performed By: #### L [id number] ####Phys Assistant: FENG CONSTANTINO ([phone])[facility] [place] ([facility])[address] Neutrophils/100 WBC (Bld) 66.4 % Normal 38.0-82.0 [facility] Comment on above: Performed By: #### L [id number] ####Phys Assistant: FENG CONSTANTINO ([id number])[facility] [place] ([facility])[address] NRBC 0.0 /100 WBCs Normal 0.0-2.0 [facility] Comment on above: Performed By: #### L [id number] ####Phys Assistant: FENG CONSTANTINO ([phone])[facility] [place] ([facility])[address] Platelet mean volume (Bld) [Entitic vol] 9.3 fL Normal 9.0-12.7 [facility] Comment on above: Performed By: #### L [id number] ####Phys Assistant: FENG CONSTANTINO ([id number])[facility] [place] ([facility])[address] [place] [address] [place] Platelets (Bld) [#/Vol] 381 10*3/uL Normal 140-440 [facility] Comment on above: Performed By: #### L [id number] ####Phys Assistant: FENG CONSTANTINO ([phone])[facility] [place] ([facility])[address] RBC (Bld) [#/Vol] 3.28 10*6/uL Low 4.40-5.90 [facility] Comment on above: Performed By: #### L [id number] ####Phys Assistant: FENG CONSTANTINO ([id number])[facility] [place] ([facility])[address] WBC (Bld) [#/Vol] 7.3 10*3/uL Normal 3.6-10.7 [facility] Comment on above: Performed By: #### L [id number] ####Phys Assistant: FENG CONSTANTINO ([phone])[facility] ([facility])[address] COMPREHENSIVE METABOLIC PANE Victor M 04-17-2025 Albumin [Mass/Vol] 2.3 g/dL Low 3.5-5.0 [facility] Comment on above: Performed By: #### L [id number] ####Phys Assistant: FENG CONSTANTINO ([phone])[facility] ([facility])[address] ALP [Catalytic activity/Vol] 294 U/L High 40-150 [facility] Comment on above: Performed By: #### L [id number] ####Phys Assistant: FENG CONSTANTINO ([phone])[facility] [place] ([facility])[address] ALT [Catalytic activity/Vol] 6 U/L Normal <40 [facility] Comment on above: Performed By: #### L [id number] ####Phys Assistant: FENG CONSTANTINO ([phone])[facility] ([facility])[address] Anion gap [Moles/Vol] 11 mmol/L Normal 3-13 [facility] Comment on above: Performed By: #### L [id number] ####Phys Assistant: FENG CONSTANTINO ([id number])[facility] [place] ([facility])[address] AST [Catalytic activity/Vol] 57 U/L High <34 [facility] Comment on above: Performed By: #### L [id number] ####Phys Assistant: FENG CONSTANTINO ([phone])[facility] ([facility])[address] Bilirubin [Mass/Vol] 0.7 mg/dL Normal <1.2 [facility] Comment on above: Performed By: #### L [id number] ####Phys Assistant: FENG CONSTANTINO ([id number])[facility] ([facility])[address] Calcium [Mass/Vol] 9.5 mg/dL Normal 8.4-10.2 [facility] Comment on above: Performed By: #### L [id number] ####Phys Assistant: FENG CONSTANTINO ([id number])[facility] ([facility])[address] Chloride [Moles/Vol] 100 mmol/L Normal 98-107 [facility] Comment on above: Performed By: #### L [id number] ####Phys Assistant: FENG CONSTANTINO ([id number])[facility] ([facility])[address] [place] [address] [place] CO2 [Moles/Vol] 25 mmol/L Normal 22-29 [facility] Comment on above: Performed By: #### L [id number] ####Phys Assistant: FENG CONSTANTINO ([id number])[facility] ([facility])[address] Creatinine [Mass/Vol] 4.18 mg/dL High 0.72-1.25 [facility] Comment on above: Performed By: #### L [id number] ####Phys Assistant: FENG CONSTANTINO ([id number])[facility] ([facility])[address] [place] [address] [place] GLOMERULAR FILTRATION RATE ML/MIN/1.73 SQ M.PREDICTED 15.6 mL/min/1.73m*2 Low >60.0 [facility] Comment on above: Result Comment: Calc ulation based on the Chronic Kidney Disease Epidemiology Collaboration (CKD-EPI) equation refit without adjustment for race Performed By: #### L [id number] ####Phys Assistant: FENG CONSTANTINO ([id number])[facility] ([facility])[address] Glucose [Mass/Vol] 98 mg/dL Normal 74-100 [facility] Comment on above: Performed By: #### L [id number] ####Phys Assistant: FENG CONSTANTINO ([phone])[facility] ([facility])[address] [place] [address] [place] Potassium [Moles/Vol] 5.7 mmol/L High 3.5-5.1 [facility] Comment on above: Result Comment: [facility] potassium values may be up to 0.5 mmol/L lower than serum values. Performed By: #### L [id number] ####Phys Assistant: FENG CONSTANTINO ([phone])[facility] ([facility])[address] Protein [Mass/Vol] 7.7 g/dL Normal 6.4-8.3 [facility] Comment on above: Performed By: #### L [id number] ####Phys Assistant: FENG CONSTANTINO ([phone])[facility] ([facility])[address] [place] [address] [place] Sodium [Moles/Vol] 136 mmol/L Normal 136-145 [facility] Comment on above: Performed By: #### L [id number] ####Phys Assistant: FENG CONSTANTINO ([id number])[facility] ([facility])[address] [place] [address] [place] Urea nitrogen [Mass/Vol] 48 mg/dL High 9-23 [facility] Comment on above: Performed By: #### L [id number] ####Phys Assistant: FENG CONSTANTINO ([phone])[facility] (SBHLAB)[address] [place] [address] Comprehensive metabolic 1998 panelon 04-17-2025 Albumin [Mass/Vol] 2.3 g/dL Low 3.5 - 5.0 g/dL [facility] ALP [Catalytic activity/Vol] 294 U/L High 40 - 150 U/L [facility] ALT [Catalytic activity/Vol] 6 U/L NINF - 40 U/L [facility] Anion gap [Moles/Vol] 11 mmol/L 3 - 13 mmol/L [facility] AST [Catalytic activity/Vol] 57 U/L High NINF - 34 U/L [facility] Bilirubin [Mass/Vol] 0.7 mg/dL NINF - 1.2 mg/dL [facility] Calcium [Mass/Vol] 9.5 mg/dL 8.4 - 10. 2 mg/dL [facility] Chloride [Moles/Vol] 100 mmol/L 98 - 10 7 mmol/L [facility] CO2 [Moles/Vol] 25 mmol/L 22 - 29 mmol/L [facility] Creatinine [Mass/Vol] 4.18 mg/dL High 0.72 - 1.25 mg/dL [facility] GFR/1.73 sq M.predicted (S/P/Bld) [Vol rate/Area] 15.6 mL/min Low - PINF [facility] Comment on above: Calculation based on the Chronic Kidney Disease Epidemiology Collaboration (CKD-EPI) equation refit without adjustment for race Glucose [Mass/Vol] 98 mg/dL 74 - 100 mg/dL [facility] Interpretation and review of laboratory results Abnormal [facility] Potassium [Moles/Vol] 5.7 mmol/L High 3.5 - 5.1 mmol/L [facility] Comment on above: Plasma potassium macey ues may be up to 0.5 mmol/L lower than serum values. Protein [Mass/Vol] 7.7 g/dL 6.4 - 8.3 g/dL [facility] Sodium [Moles/Vol] 136 mmol/L 136 - 145 mmol/L [facility] Urea nitrogen [Mass/Vol] 48 mg/dL High 9 - 23 mg/d L [facility] ED Nursing Noteon 04-17-2025 ED Nursing Note Report called to [place] Alden. Normal [facility] ED Nursing Note PIV placed, blood collected for lab work, pt states it hurts and he does not want an PIV left in, If I leave it he will rip it out. PIV Dc'd Normal [facility] ED Provider Noteon 5 ED Provider Note Normal [facility] Laboratory - CoagulationOrde red By: Yifan Howard on 04-17-2025 PT Coag (Bld) [Time] s High 9.0 - 12.0 s [facility] PROTHROMBIN TIMEon INR Coag (PPP) [Relative time] {INR} Critically high 0.9-1.1 [facility] Comment on above: Performed By: #### L AB320 ####Phys Assistant: FENG CONSTANTINO ([phone])[facility] ([facility])[address] [place] [address] PT Coag (PPP) [Time] s High 9.0-12.0 [facility] Comment on above: Performed By: #### L AB320 ####Phys Assistant: FENG CONSTANTINO ([phone])[facility] ([facility])[address] [place] [address] PT Coag (Bld) [Time]Ordered By: Yifan Howard on 04-17-2025 INR Coag (PPP) [Relative time] Critically high 0.9 - 1.1 [facility] Interpretation and review of laboratory results Abnormal [facility] Prothrombin Time w/INRon INR Coag (PPP) [Relative time] 10.8 {INR} Invalid Interpretation Code [facility] Comment on above: Order Comment: 412.2 Result Comment: CRIT ICAL VALUE CALLED TO LEXX BERG ([facility]) 04/17/25 0831 Brett Lamas RESULTS READ BACK BY SAME. Performed By: #### L 100.0100, L500.4050, L300.3900 #### [facility] [address] [place], [address] PT Coag (PPP) [Time] 87.5 s High 11.7-14.9 [facility] Comment on above: Order Comment: 412.2 Performed By: #### L 100.0100, L500.4050, L300.3900 #### [facility] [address] [place], [address] CBC W/Diff, Automatedon 07-2 -2024 Absolute Lymph 0.94 X10 3/uL Normal 0.83-4.51 [facility] Comment on above: Order Comment: 412.2 Performed By: #### L 100.0100, L500.4050, L300.3900 #### [facility] [address] [place], [address] Absolute Neut 3.9 X10 3/uL Normal 2.0-7.7 [facility] Comment on above: Order Comment: 412.2 Performed By: #### L 100.0100, L500.4050, L300.3900 #### [facility] [address] [place], [address] Basophils/100 WBC (Bld) 1.7 % High 0-1 [facility] Comment on above: Order Comment: 412.2 Performed By: #### L 100.0100, L500.4050, L300.3900 #### [facility] [address] [place], [address] Eosinophils/100 WBC (Bld) 4.3 % Normal 0-5 [facility] Comment on above: Order Comment: 412.2 Performed By: #### L 100.0100, L500.4050, L300.3900 #### [facility] [address] [place], [address] Erythrocyte distribution width (RBC) [Ratio] 16.3 % High 11.6-14.6 [facility] Comment on above: Order Comment: 412.2 Performed By: #### L 100.0100, L500.4050, L300.3900 #### [facility] [address] [place], [address] Hematocrit (Bld) [Volume fraction] 29.3 % Low 40-54 [facility] Comment on above: Order Comment: 412.2 Performed By: #### L 100.0100, L500.4050, L300.3900 #### [facility] [address] [place], [address] Hemoglobin (Bld) [Mass/Vol] 9.4 g/dL Low 13.0-16.5 [facility] Comment on above: Order Comment: 412.2 Performed By: #### L 100.0100, L500.4050, L300.3900 #### [facility] [address] [place], [address] IG% 0.800 Normal 0.0-0.9 [facility] Comment on above: Order Comment: 412.2 Result Comment: IG% - Immature Granulocytes (promyelocytes, myelocytes and metamyelocytes) > 1% indicates that a LEFT SHIFT is Present. Performed By: #### L 100.0100, L500.4050, L300.3900 #### [facility] [address] [place], [address] Lymphocytes/100 WBC (Bld) 15.7 % Low 19-41 [facility] Comment on above: Order Comment: 412.2 Performed By: #### L 100.0100, L500.4050, L300.3900 #### [facility] [address] [place], [address] MCH (RBC) [Entitic mass] 29.7 pg Normal 27.0-32.0 [facility] Comment on above: Order Comment: 412.2 Performed By: #### L 100.0100, L500.4050, L300.3900 #### [facility] [address] [place], [address] MCHC (RBC) [Mass/Vol] 32.1 g/dL Normal 32-36 [facility] Comment on above: Order Comment: 412.2 Performed By: #### L 100.0100, L500.4050, L300.3900 #### [facility] [address] [place], [address] MCV (RBC) [Entitic vol] 92.4 fL Normal 80-94 [facility] Comment on above: Order Comment: 412.2 Performed By: #### L 100.0100, L500.4050, L300.3900 #### [facility] [address] [place], [address] Monocytes/100 WBC (Bld) 13.0 % High 0-10 [facility] Comment on above: Order Comment: 412.2 Performed By: #### L 100.0100, L500.4050, L300.3900 #### [facility] [address] [place], [address] Neutrophils/100 WBC (Bld) 64.5 % Normal 47-70 [facility] Comment on above: Order Comment: 412.2 Performed By: #### L 100.0100, L500.4050, L300.3900 #### [facility] [address] [place], [address] Nucleated RBC (Bld) [#/Vol] 0 10*3/uL Normal 0-5 [facility] Comment on above: Order Comment: 412.2 Performed By: #### L 100.0100, L500.4050, L300.3900 #### [facility] [address] [place], [address] Platelet mean volume (Bld) [Entitic vol] 9.5 fL Normal 6.2-12.0 [facility] Comment on above: Order Comment: 412.2 Performed By: #### L 100.0100, L500.4050, L300.3900 #### [facility] [address] [place], [address] Platelets (Bld) [#/Vol] 397 10*3/uL Normal 150-450 [facility] Comment on above: Order Comment: 412.2 Performed By: #### L 100.0100, L500.4050, L300.3900 #### [facility] [address] [place], [address] RBC (Bld) [#/Vol] 3.17 10*6/uL Low 4.6-6.2 [facility] Comment on above: Order Comment: 412.2 Performed By: #### L 100.0100, L500.4050, L300.3900 #### [facility] [address] [place], [address] RDW SD 54.5 fl High 35.1-43.9 [facility] Comment on above: Order Comment: 412.2 Performed By: #### L 100.0100, L500.4050, L300.3900 #### [facility] [address] [place], [address] WBC (Bld) [#/Vol] 6.0 10*3/uL Normal 4.4-11.0 [facility] Comment on above: Order Comment: 412.2 Performed By: #### L 100.0100, L500.4050, L300.3900 #### [facility] [address] [place], [address] CT CHEST WO IV CONTRASTon CT CHEST WO IV CONTRAST Normal [facility] Metabolic Prof ilon 04-16-2025 Albumin [Mass/Vol] 3.1 g/dL Low 3.5-5.0 [facility] Comment on above: Order Comment: 412.2 Performed By: #### L 100.0100, L500.4050, L300.3900 #### [facility] [address] [place], [address] Albumin/Globulin [Mass ratio] 0.7 {ratio} Low 0.9-2.4 [facility] Comment on above: Order Comment: 412.2 Performed By: #### L 100.0100, L500.4050, L300.3900 #### [facility] [address] [place], [address] ALK PHOS 331 U/L High 40-129 [facility] Comment on above: Order Comment: 412.2 Performed By: #### L 100.0100, L500.4050, L300.3900 #### [facility] [address] [place], [address] ALT [Catalytic activity/Vol] 13 U/L Normal <=46 [facility] Comment on above: Order Comment: 412.2 Performed By: #### L 100.0100, L500.4050, L300.3900 #### [facility] [address] [place], [address] AST [Catalytic activity/Vol] 41 U/L High <=37 [facility] Comment on above: Order Comment: 412.2 Performed By: #### L 100.0100, L500.4050, L300.3900 #### [facility] [address] [place], [address] Bilirubin [Mass/Vol] 0.68 mg/dL Normal 0.00-1.30 [facility] Comment on above: Order Comment: 412.2 Performed By: #### L 100.0100, L500.4050, L300.3900 #### [facility] [address] [place], [address] BUN/CRE 13.0 RATIO Normal 10-20 [facility] Comment on above: Order Comment: 412.2 Performed By: #### L 100.0100, L500.4050, L300.3900 #### [facility] [address] [place], [address] Calcium [Mass/Vol] 10.2 mg/dL Normal 7.6-11.0 [facility] Comment on above: Order Comment: 412.2 Performed By: #### L 100.0100, L500.4050, L300.3900 #### [facility] [address] [place], [address] Chloride [Moles/Vol] 96 mmol/L Low 98-108 [facility] Comment on above: Order Comment: 412.2 Performed By: #### L 100.0100, L500.4050, L300.3900 #### [facility] [address] [place], [address] CO2 [Moles/Vol] 22.7 mmol/L Normal 21.0-32.0 [facility] Comment on above: Order Comment: 412.2 Performed By: #### L 100.0100, L500.4050, L300.3900 #### [facility] [address] [place], [address] Creatinine [Mass/Vol] 5.22 mg/dL High 0.70-1.20 [facility] Comment on above: Order Comment: 412.2 Performed By: #### L 100.0100, L500.4050, L300.3900 #### [facility] [address] [place], [address] GAP 16 High 5-15 [facility] Comment on above: Order Comment: 412.2 Performed By: #### L 100.0100, L500.4050, L300.3900 #### [facility] [address] [place], [address] GFR/1.73 sq M.predicted among non-blacks MDRD (S/P/Bld) [Vol rate/Area] 12 mL/min/{1.73_m2} Low >60 [facility] Comment on above: Order Comment: 412.2 Result Comment: mL/m in/1.73m2 CKD-EPI Creatinine Equation (2020) Performed By: #### L 100.0100, L500.4050, L300.3900 #### [facility] [address] [place], [address] Globulin (S) [Mass/Vol] 4.4 g/dL High 2.2-4.2 [facility] Comment on above: Order Comment: 412.2 Performed By: #### L 100.0100,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 [facility] Interpretation and review of laboratory results Abnormal [facility] Potassium [Moles/Vol] 5.5 mmol/L High 3.5 - 5.1 mmol/L [facility] Comment on above: Plasma potassium macey ues may be up to 0.5 mmol/L lower than serum values. Sodium [Moles/Vol] 140 mmol/L 136 - 145 mmol/L [facility] Urea nitrogen [Mass/Vol] 34 mg/dL High 9 - 23 mg/d L [facility] CBC W Auto Differential pane l (Bld)Ordered By: Yifan Howard on 04-05-2025 Basophils (Bld) [#/Vol] 0.1 10*3/uL 0.0 - 0.2 10*3/uL [facility] Basophils/100 WBC (Bld) 1.5 % 0.0 - 2.0 % [facility] Eosinophils (Bld) [#/Vol] 0.2 10*3/uL 0.0 - 0.5 10*3/uL [facility] Eosinophils/100 WBC (Bld) 3.5 % 0.0 - 6.0 % [facility] Erythrocyte distribution width (RBC) [Ratio] 16 % High 11.5 - 15.0 % [facility] Hematocrit (Bld) [Volume fraction] 30.1 % Low 40.0 - 52.0 % [facility] Hemoglobin (Bld) [Mass/Vol] 9.3 g/dL Low 13.0 - 18.0 g/dL [facility] Immature granulocytes (Bld) [#/Vol] 0 10*3/uL NINF - 0.1 10*3/uL [facility] Immature granulocytes/100 WBC (Bld) 0.4 % 0.0 - 2.0 % [facility] Interpretation and review of laboratory results Abnormal [facility] Lymphocytes (Bld) [#/Vol] 1.1 10*3/uL 1.0 - 4.3 10*3/uL [facility] Lymphocytes/100 WBC (Bld) 15.4 % 15.0 - 45.0 % [facility] MCH (RBC) [Entitic mass] 29.5 pg 26. 0 - 34.0 pg [facility] MCHC (RBC) [Mass/Vol] 30.9 % 30.5 - 36.0 % [facility] MCV (RBC) [Entitic vol] 95.6 fL 77.0 - 99.0 fL [facility] Monocytes (Bld) [#/Vol] 0.9 10*3/uL 0.0 - 0.9 10*3/uL [facility] Monocytes/100 WBC (Bld) 13.2 % High 5.0 - 13.0 % [facility] Neutrophils (Bld) [#/Vol] 4.5 10*3/uL 1.8 - 7.5 10*3/uL [facility] Neutrophils/100 WBC (Bld) 66 % 38.0 - 82.0 % [facility] Nucleated RBC/100 WBC (Bld) [Ratio] 0 % [facility] Platelet mean volume (Bld) [Entitic vol] 8.8 fL Low 9.0 - 12.7 fL [facility] Platelets (Bld) [#/Vol] 329 10*3/uL 140 - 440 10*3/uL [facility] RBC (Bld) [#/Vol] 3.15 10*6/uL Low 4.40 - 5.9 0 10*6/uL [facility] WBC (Bld) [#/Vol] 6.8 10*3/uL 3.6 - 10.7 10*3/uL [facility] CBC WITH AUTO DIFFERENTIALon 04-05-2025 Basophils (Bld) [#/Vol] 0.1 10*3/uL Normal 0.0-0.2 [facility] Comment on above: Performed By: #### L [id number] ####Phys Assistant: FENG CONSTANTINO ([phone])[facility] ([facility])[address] [place] [address] Basophils/100 WBC (Bld) 1.5 % Normal 0.0-2.0 S [facility] Comment on above: Performed By: #### L [id number] ####Phys Assistant: FENG CONSTANTINO ([phone])[facility] (SB[facility])[address] Eosinophils (Bld) [#/Vol] 0.2 10*3/uL Normal 0.0-0.5 [facility] Comment on above: Performed By: #### L [id number] ####Phys Assistant: FENG CONSTANTINO ([phone])[facility] ([facility])[address] Eosinophils/100 WBC (Bld) 3.5 % Normal 0.0-6.0 [facility] Comment on above: Performed By: #### L [id number] ####Phys Assistant: FENG CONSTANTINO ([phone])[facility] ([facility] Erythrocyte distribution width (RBC) [Ratio] 16.0 % High 11.5-15.0 [facility] Comment on above: Performed By: #### L [id number] ####Phys Assistant: FENG CONSTANTINO ([phone])[facility] ([facility] Hematocrit (Bld) [Volume fraction] 30.1 % Low 40.0-52.0 [facility] Comment on above: Performed By: #### L [id number] ####Phys Assistant: FENG CONSTANTINO ([phone])[facility] ([facility] Hemoglobin (Bld) [Mass/Vol] 9.3 g/dL Low 13.0-18.0 [facility] Comment on above: Performed By: #### L [id number] ####Phys Assistant: FENG CONSTANTINO ([phone])[facility] ([facility] IMMATURE GRANS % 0.4 % Normal 0.0-2.0 [facility] Comment on above: Performed By: #### L [id number] ####Phys Assistant: FENG CONSTANTINO ([phone])[facility] (SBHLAB)[address] IMMATURE GRANS ABSOLUTE 0.0 10*3/uL Normal <0.1 [facility] Comment on above: Performed By: #### L [id number] ####Phys Assistant: FENG CONSTANTINO ([phone])[facility] (SBHLAB)[address] Lymphocytes (Bld) [#/Vol] 1.1 10*3/uL Normal 1.0-4.3 [facility] Comment on above: Performed By: #### L [id number] ####Phys Assistant: FENG CONSTANTINO ([id number])[facility] (SBHLAB)[address] Lymphocytes/100 WBC (Bld) 15.4 % Normal 15.0-45.0 [facility] Comment on above: Performed By: #### L [id number] ####Phys Assistant: FENG CONSTANTINO ([id number])[facility] (SBHLAB)[address] MCH (RBC) [Entitic mass] 29.5 pg Normal 26.0-34.0 [facility] Comment on above: Performed By: #### L [id number] ####Phys Assistant: FENG CONSTANTINO ([phone])[facility] (SBHLAB)[address] MCHC 30.9 % Normal 30.5-36.0 [facility] Comment on above: Performed By: #### L [id number] ####Phys Assistant: FENG CONSTANTINO ([phone])[facility] (SBHLAB)[address] MCV (RBC) [Entitic vol] 95.6 fL Normal 77.0-99.0 [facility] Comment on above: Performed By: #### L [id number] ####Phys Assistant: FENG CONSTANTINO ([id number])[facility] (SBHLAB)[address] Monocytes (Bld) [#/Vol] 0.9 10*3/uL Normal 0.0-0.9 [facility] Comment on above: Performed By: #### L [id number] ####Phys Assistant: FENG CONSTANTINO ([id number])[facility] (SBHLAB)[address] Monocytes/100 WBC (Bld) 13.2 % High 5.0-13.0 [facility] Comment on above: Performed By: #### L [id number] ####Phys Assistant: FENG CONSTANTINO ([id number])[facility]IAL[facility] [place] (SBHLAB)[address] NEUTROPHILS ABSOLUTE 4.5 10*3/uL Normal 1.8-7.5 [facility] Comment on above: Performed By: #### L [id number] ####Phys Assistant: FENG CONSTANTINO ([id number])[facility] [place] (SBHLAB)[address] Neutrophils/100 WBC (Bld) 66.0 % Normal 38.0-82.0 [facility] Comment on above: Performed By: #### L [id number] ####Phys Assistant: FENG CONSTANTINO ([id number])[facility] [place] (SBHLAB)[address] NRBC 0.0 /100 WBCs Normal 0.0-2.0 [facility] Comment on above: Performed By: #### L [id number] ####Phys Assistant: FENG CONSTANTINO ([id number])[facility] [place] (SBHLAB)[address] Platelet mean volume (Bld) [Entitic vol] 8.8 fL Low 9.0-12.7 [facility] Comment on above: Performed By: #### L [id number] ####Phys Assistant: FENG CONSTANTINO ([id number])[facility] (SBHLAB)[address] Platelets (Bld) [#/Vol] 329 10*3/uL Normal 140-440 [facility] Comment on above: Performed By: #### L [id number] ####Phys Assistant: FENG FELIXCER ([id number])[facility] [place] (SBHLAB)[address] RBC (Bld) [#/Vol] 3.15 10*6/uL Low 4.40-5.90 [facility] Comment on above: Performed By: #### L [id number] ####Phys Assistant: FENG FELIXCER ([id number])[facility] [place] (SBHLAB)[address] WBC (Bld) [#/Vol] 6.8 10*3/uL Normal 3.6-10.7 [facility] Comment on above: Performed By: #### L [id number] ####Phys Assistant: FENG COLEGEORGE ([id number])[facility] [place] (SBHLAB)[address] [place] [address] ECG 12-LEADon 04-05-2025 ECG 12-LEAD IMPRESSION: Atrial flutter with varied AV block, Right axis deviation Repol abnrm, severe global ischemia (LM/MVD) Prolonged QT interval Electronically Signed On 04-05-2025 10:13:24 EDT by Dieter Villegas Normal [facility] ED Nursing Noteon 04-05-2025 ED Nursing Note Dialysis at bedside. Normal [facility] ED Nursing Note Pt has no complaints at this time. Normal [facility] ED Nursing Note Normal [facility] ED Provider Noteon ED Provider Note Normal [facility] HIGH SENSITIVITY TROPONIN, S ERIAL BASELINEon 04-05-2025 TROPONIN HS SERIAL BASELINE 36 ng/L High <=35 [facility] Comment on above: Result Comment: In i ndividuals presenting with symptoms > 2h, a baseline troponin <= 5 ng/L suggests acutecardiac injury is unlikely and further serial testing is generally not indicated. Performed By: #### L [id number], [id number] ####Phys Assistant: FENG CONSTANTINO ([id number])[facility] (SBHLAB)[address] HIGH SENSITIVITY TROPONIN, S ERIAL, SECOND TESTon 04-05-2025 2H TROPONIN HS (SERIAL 2ND TROPONIN) 29 ng/L Normal <=35 [facility] Comment on above: Result Comment: Risi ng or falling troponin delta between 2 ??? 15 ng/L as compared to baseline value requires a 3rd serial troponin Performed By: #### L [id number] ####Phys Assistant: FENG COLEGEORGE ([id number])[facility] (SBHLAB)[address] Laboratory - Coagulationon 0 04-05-2025 PT Coag (Bld) [Time] 26.3 s High 9.0 - 12.0 s [facility] No Panel Informationon 04-05 2h Troponin HS (Serial 2nd Troponin) 29 ng/L NINF - 35 ng/L [facility] Comment on above: Rising or falling tr oponin delta between 2 15 ng/L as compared to baseline value requires a 3rd serial troponin Interpretation and review of laboratory results Normal [facility] Interpretation and review of laboratory results Abnormal [facility] Troponin HS Serial Baseline 36 ng/L High NINF - 35 ng/L [facility] Comment on above: In individuals prese nting with symptoms > 2h, a baseline troponin <= 5 ng/L suggests acute cardiac injury is unlikely and further serial testing is generally not indicated. [facility] P Zwolle 0 degrees [facility] TX Interval 0 ms [facility] QRS Zwolle 101 degrees [facility] QRSD [facility]val [facility] 361 ms [facility] QTC Interval 510 ms [facility] T Wave Zwolle 0 degrees [facility] Atrial flutter with varied AV block, Right axis deviation Repol abnrm, severe global ischemia (LM/MVD) Prolonged QT interval Electronically Signed On 04-05-2025 10:13:24 EDT by Dieter Linn MD - 04/05/2025 IMPRESSION: Atrial flutter with varied AV block, Right axis deviation Repol abnrm, severe global ischemia (LM/MVD) Prolonged QT interval Electronically Signed On 04-05-2025 10:13:24 EDT by Dieter Villegas [facility] Nursing Noteon 04-05-2025 Nursing Note Normal [facility] PROTHROMBIN TIMEon INR Coag (PPP) [Relative time] 2.6 {INR} High 0.9-1.1 [facility] Comment on above: Result Comment: Vaughn mmended [...] Myocardial Infarction Performed By: #### Tameka [id number] ####Phys Assistant: FENG CONSTANTINO ([id number])[facility] [place] (SBAB)[address] [place] [address] PT Coag (PPP) [Time] 26.3 s High 9.0-12.0 [facility] Comment on above: Performed By: #### L [id number] ####Phys Assistant: FENG CONSTANTINO ([id number])[facility] (SBHLAB)[address] [place] [address] PT Coag (Bld) [Time]on 04-05 INR Coag (PPP) [Relative time] 2.6 {INR} High 0.9 - 1.1 [facility] Comment on above: Recommended Anticoag [...] Interpretation and review of laboratory results Abnormal [facility] Protime w/INR Fingerstickon 04-05-2025 INR Coag (PPP) [Relative time] 2.7 {INR} Normal [facility] Comment on above: Result Comment: Crit ical Value > 4.0 Performed By: #### L 100.0100, L500.4050, L300.3900 #### [facility] [address] [place], [address] Protime Coagsen 28.2 SEC High 11.7-14.9 [facility] Comment on above: Performed By: #### L 100.0100, L500.4050, L300.3900 #### [facility] [address] [place], [address] Vital signson 04-05-2025 Heart rate 120 /min bpm [facility] XR Chest 2 Viewson Cardiomegaly [...] Report Dictated on Electronically Signed By: Devonte Bocangera MD Electronically Signed Date/Time: 04/05/2025 11:36 AM [facility] Name[facility] 1965 [id number] Exam Date/Time: 04/05/2025 10:17 Procedure: XR CHEST [...] the spine are present at multiple levels. [facility] Devonte Bocanegra MD - 04/05/2025 Patient Name: JUN SNYDER : 1965 [id number] Exam Date/Time: 04/05/2025 10:17 Procedure: XR CHEST [...] Electronically Signed Date/Time: 04/05/2025 11:36 AM EDT [facility] Radiology Study observation (narrative) [facility] XR Chest 2 ViewsOrdered By: Devonte Bocanegra on 04-05-2025 [facility] Work Phone: 36on 04-04-2025 36 noted Normal [facility] 36 Normal [facility] 36 Patient is still in facility. I spoke with his nurse, Chandrika, and she stated that he is suppose to be discharging around 04/26. She is not sure where he will be going. I will call paperback machine operator to that date and speak with the social and political studies professor. Normal [facility] 36on 04-02-2025 36 Called patient to confirm appointment with Maryann in [place] 04/03/25, and he is at [place]. Spoke to Rosa and left message for nurse to call about appointment. Normal [facility] CBC W/Diff, Automatedon 07-0 7-2024 Absolute Lymph 0.83 X10 3/uL Normal 0.83-4.51 [facility] Comment on above: Order Comment: 412.2 Performed By: #### L 100.0100, L500.4050, L300.3900 #### [facility] [address] [place], [address] Absolute Neut 4.2 X10 3/uL Normal 2.0-7.7 [facility] Comment on above: Order Comment: 412.2 Performed By: #### L 100.0100, L500.4050, L300.3900 #### [facility] [address] [place], [address] Basophils/100 WBC (Bld) 1.9 % High 0-1 [facility] Comment on above: Order Comment: 412.2 Performed By: #### L 100.0100, L500.4050, L300.3900 #### [facility] [address] [place], [address] Eosinophils/100 WBC (Bld) 3.5 % Normal 0-5 [facility] Comment on above: Order Comment: 412.2 Performed By: #### L 100.0100, L500.4050, L300.3900 #### [facility] [address] [place], [address] Erythrocyte distribution width (RBC) [Ratio] 16.3 % High 11.6-14.6 [facility] Comment on above: Order Comment: 412.2 Performed By: #### L 100.0100, L500.4050, L300.3900 #### [facility] [address] [place], [address] Hematocrit (Bld) [Volume fraction] 32.8 % Low 40-54 [facility] Comment on above: Order Comment: 412.2 Performed By: #### L 100.0100, L500.4050, L300.3900 #### [facility] [address] [place], [address] Hemoglobin (Bld) [Mass/Vol] 10.1 g/dL Low 13.0-16.5 [facility] Comment on above: Order Comment: 412.2 Performed By: #### L 100.0100, L500.4050, L300.3900 #### [facility] [address] [place], [address] IG% 0.500 Normal 0.0-0.9 [facility] Comment on above: Order Comment: 412.2 Result Comment: IG% - Immature Granulocytes (promyelocytes, myelocytes and metamyelocytes) > 1% indicates that a LEFT SHIFT is Present. Performed By: #### L 100.0100, L500.4050, L300.3900 #### [facility] [address] [place], [address] Lymphocytes/100 WBC (Bld) 13.2 % Low 19-41 [facility] Comment on above: Order Comment: 412.2 Performed By: #### L 100.0100, L500.4050, L300.3900 #### [facility] [address] [place], [address] MCH (RBC) [Entitic mass] 30.1 pg Normal 27.0-32.0 [facility] Comment on above: Order Comment: 412.2 Performed By: #### L 100.0100, L500.4050, L300.3900 #### [facility] [address] [place], [address] MCHC (RBC) [Mass/Vol] 30.8 g/dL Low 32-36 [facility] Comment on above: Order Comment: 412.2 Performed By: #### L 100.0100, L500.4050, L300.3900 #### [facility] [address] [place], [address] MCV (RBC) [Entitic vol] 97.6 fL High 80-94 [facility] Comment on above: Order Comment: 412.2 Performed By: #### L 100.0100, L500.4050, L300.3900 #### [facility] [address] [place], [address] Monocytes/100 WBC (Bld) 14.3 % High 0-10 [facility] Comment on above: Order Comment: 412.2 Performed By: #### L 100.0100, L500.4050, L300.3900 #### [facility] [address] [place], [address] Neutrophils/100 WBC (Bld) 66.6 % Normal 47-70 [facility] Comment on above: Order Comment: 412.2 Performed By: #### L 100.0100, L500.4050, L300.3900 #### [facility] [address] [place], [address] Nucleated RBC (Bld) [#/Vol] 0 10*3/uL Normal 0-5 [facility] Comment on above: Order Comment: 412.2 Performed By: #### L 100.0100, L500.4050, L300.3900 #### [facility] [address] [place], [address] Platelet mean volume (Bld) [Entitic vol] 9.4 fL Normal 6.2-12.0 [facility] Comment on above: Order Comment: 412.2 Performed By: #### L 100.0100, L500.4050, L300.3900 #### [facility] [address] [place], [address] Platelets (Bld) [#/Vol] 383 10*3/uL Normal 150-450 [facility] Comment on above: Order Comment: 412.2 Performed By: #### L 100.0100, L500.4050, L300.3900 #### [facility] [address] [place], [address] RBC (Bld) [#/Vol] 3.36 10*6/uL Low 4.6-6.2 [facility] Comment on above: Order Comment: 412.2 Performed By: #### L 100.0100, L500.4050, L300.3900 #### [facility] [address] [place], [address] RDW SD 58.6 fl High 35.1-43.9 [facility] Comment on above: Order Comment: 412.2 Performed By: #### L 100.0100, L500.4050, L300.3900 #### [facility] [address] [place], [address] WBC (Bld) [#/Vol] 6.3 10*3/uL Normal 4.4-11.0 [facility] Comment on above: Order Comment: 412.2 Performed By: #### L 100.0100, L500.4050, L300.3900 #### [facility] [address] [place], [address] Comprehensive Metabolic Prof [facility] 04-02-2025 Albumin [Mass/Vol] 3.2 g/dL Low 3.5-5.0 [facility] Comment on above: Order Comment: 412.2 Performed By: #### L 100.0100, L500.4050, L300.3900 #### [facility] [address] [place], [address] Albumin/Globulin [Mass ratio] 0.8 {ratio} Low 0.9-2.4 [facility] Comment on above: Order Comment: 412.2 Performed By: #### L 100.0100, L500.4050, L300.3900 #### [facility] [address] [place], [address] ALK PHOS 229 U/L High 40-129 [facility] Comment on above: Order Comment: 412.2 Performed By: #### L 100.0100, L500.4050, L300.3900 #### [facility] [address] [place], [address] ALT [Catalytic activity/Vol] 20 U/L Normal <=46 [facility] Comment on above: Order Comment: 412.2 Performed By: #### L 100.0100, L500.4050, L300.3900 #### [facility] [address] [place], [address] AST [Catalytic activity/Vol] 46 U/L High <=37 [facility] Comment on above: Order Comment: 412.2 Performed By: #### L 100.0100, L500.4050, L300.3900 #### [facility] [address] [place], [address] Bilirubin [Mass/Vol] 0.74 mg/dL Normal 0.00-1.30 [facility] Comment on above: Order Comment: 412.2 Performed By: #### L 100.0100, L500.4050, L300.3900 #### [facility] [address] [place], [address] BUN/CRE 8.2 RATIO Low 10-20 [facility] Comment on above: Order Comment: 412.2 Performed By: #### L 100.0100, L500.4050, L300.3900 #### [facility] [address] [place], [address] Calcium [Mass/Vol] 9.9 mg/dL Normal 7.6-11.0 [facility] Comment on above: Order Comment: 412.2 Performed By: #### L 100.0100, L500.4050, L300.3900 #### [facility] [address] [place], [address] Chloride [Moles/Vol] 98 mmol/L Normal 98-108 [facility] Comment on above: Order Comment: 412.2 Performed By: #### L 100.0100, L500.4050, L300.3900 #### [facility] [address] [place], [address] CO2 [Moles/Vol] 25.9 mmol/L Normal 21.0-32.0 [facility] Comment on above: Order Comment: 412.2 Performed By: #### L 100.0100, L500.4050, L300.3900 #### [facility] [address] [place], [address] Creatinine [Mass/Vol] 5.14 mg/dL High 0.70-1.20 [facility] Comment on above: Order Comment: 412.2 Performed By: #### L 100.0100, L500.4050, L300.3900 #### [facility] [address] [place], [address] GAP 12 Normal 5-15 [facility] Comment on above: Order Comment: 412.2 Performed By: #### L 100.0100, L500.4050, L300.3900 #### [facility] [address] [place], [address] GFR/1.73 sq M.predicted among non-blacks MDRD (S/P/Bld) [Vol rate/Area] 12 mL/min/{1.73_m2} Low >60 [facility] Comment on above: Order Comment: 412.2 Result Comment: mL/m in/1.73m2 CKD-EPI Creatinine Equation (2020) Performed By: #### L 100.0100, L500.4050, L300.3900 #### [facility] [address] [place], [address] Globulin (S) [Mass/Vol] 4.2 g/dL Normal 2.2-4.2 [facility] Comment on above: Order Comment: 412.2 Performed By: #### L 100.0100, L500.4050, L300.3900 #### [facility] [address] [place], [address] Glucose [Mass/Vol] 84 mg/dL Normal 70-99 [facility] Comment on above: Order Comment: 412.2 Performed By: #### L 100.0100, L500.4050, L300.3900 #### [facility] [address] [place], [address] Potassium [Moles/Vol] 5.6 mmol/L High 3.3-5.1 [facility] Comment on above: Order Comment: 412.2 Performed By: #### L 100.0100, L500.4050, L300.3900 #### [facility] [address] [place], [address] Sodium [Moles/Vol] 136 mmol/L Normal 133-145 [facility] Comment on above: Order Comment: 412.2 Performed By: #### L 100.0100, L500.4050, L300.3900 #### [facility] [address] [place], [address] T PROT 7.5 g/dL Normal 5.9-8.4 [facility] Comment on above: Order Comment: 412.2 Performed By: #### L 100.0100, L500.4050, L300.3900 #### [facility] [address] [place], [address] Urea nitrogen [Mass/Vol] 42 mg/dL High 4-19 [facility] Comment on above: Order Comment: 412.2 Performed By: #### L 100.0100, L500.4050, L300.3900 #### [facility] [address] [place], [address] Prothrombin Time w/INRon INR Coag (PPP) [Relative time] 2.1 {INR} Normal [facility] Comment on above: Order Comment: 412.2 Performed By: #### L 100.0100, L500.4050, L300.3900 #### [facility] [address] [place], [address] PT Coag (PPP) [Time] 23.9 s High 11.7-14.9 [facility] Comment on above: Order Comment: 412.2 Performed By: #### L 100.0100, L500.4050, L300.3900 #### [facility] [address] [place], [address] Prothrombin Time w/INRon INR Coag (PPP) [Relative time] 3.4 {INR} Normal [facility] Comment on above: Performed By: #### L 300.3900 #### [facility] [address] [place], [address] PT Coag (PPP) [Time] 35.4 s High 11.7-14.9 [facility] Comment on above: Performed By: #### L 300.3900 #### [facility] [address] [place], [address] 36on 03-26-2025 36 3rd attempt unable to speak to Sabino she's not in the office at them moment. Left message to call the office back to schedule Normal [facility] 36 Sabino has been notified the visit can not be virtual Normal [facility] 36 Name of Caller: Bobbi Moncada Contact Reason for Appointment: Change 04/05/25 hospital follow up to a vv. Please call and advise. Office Name: [facility] Neurology C[facility] CBC W/Diff, Automatedon 02-27 Anisocytosis Ql (Bld) 1+ Normal [facility] Comment on above: Order Comment: 412.2 Performed By: #### L 300.3900 #### [facility] [address] [place], [address] Comprehensive Metabolic Prof ilon 03-26-2025 Albumin [Mass/Vol] 3.2 g/dL Low 3.5-5.0 [facility] Comment on above: Order Comment: 412.2 Performed By: #### L 300.3900 #### [facility] [address] [place], [address] Albumin/Globulin [Mass ratio] 0.8 {ratio} Low 0.9-2.4 [facility] Comment on above: Order Comment: 412.2 Performed By: #### L 300.3900 #### [facility] [address] [place], [address] ALK PHOS 238 U/L High 40-129 [facility] Comment on above: Order Comment: 412.2 Performed By: #### L 300.3900 #### [facility] [address] [place], [address] ALT [Catalytic activity/Vol] 21 U/L Normal <=46 [facility] Comment on above: Order Comment: 412.2 Performed By: #### L 300.3900 #### [facility] [address] [place], [address] AST [Catalytic activity/Vol] 53 U/L High <=37 [facility] Comment on above: Order Comment: 412.2 Performed By: #### L 300.3900 #### [facility] [address] [place], [address] Bilirubin [Mass/Vol] 0.58 mg/dL Normal 0.00-1.30 [facility] Comment on above: Order Comment: 412.2 Performed By: #### L 300.3900 #### [facility] [address] [place], [address] BUN/CRE 6.9 RATIO Low 10-20 [facility] Comment on above: Order Comment: 412.2 Performed By: #### L 300.3900 #### [facility] [address] [place], [address] Calcium [Mass/Vol] 9.6 mg/dL Normal 7.6-11.0 [facility] Comment on above: Order Comment: 412.2 Performed By: #### L 300.3900 #### [facility] [address] [place], [address] Chloride [Moles/Vol] 102 mmol/L Normal 98-108 [facility] Comment on above: Order Comment: 412.2 Performed By: #### L 300.3900 #### [facility] [address] [place], [address] CO2 [Moles/Vol] 22.8 mmol/L Normal 21.0-32.0 [facility] Comment on above: Order Comment: 412.2 Performed By: #### L 300.3900 #### [facility] [address] [place], [address] Creatinine [Mass/Vol] 5.21 mg/dL High 0.70-1.20 [facility] Comment on above: Order Comment: 412.2 Performed By: #### L 300.3900 #### [facility] [address] [place], [address] GAP 14 Normal 5-15 [facility] Comment on above: Order Comment: 412.2 Performed By: #### L 300.3900 #### [facility] [address] [place], [address] GFR/1.73 sq M.predicted among non-blacks MDRD (S/P/Bld) [Vol rate/Area] 12 mL/min/{1.73_m2} Low >60 [facility] Comment on above: Order Comment: 412.2 Result Comment: mL/m in/1.73m2 CKD-EPI Creatinine Equation (2020) Performed By: #### L 300.3900 #### [facility] [address] [place], [address] Globulin (S) [Mass/Vol] 4.1 g/dL Normal 2.2-4.2 [facility] Comment on above: Order Comment: 412.2 Performed By: #### L 300.3900 #### [facility] [address] [place], [address] Glucose [Mass/Vol] 87 mg/dL Normal 70-99 [facility] Comment on above: Order Comment: 412.2 Performed By: #### L 300.3900 #### [facility] [address] [place], [address] Potassium [Moles/Vol] 4.9 mmol/L Normal 3.3-5.1 [facility] Comment on above: Order Comment: 412.2 Performed By: #### L 300.3900 #### [facility] [address] [place], [address] Sodium [Moles/Vol] 139 mmol/L Normal 133-145 [facility] Comment on above: Order Comment: 412.2 Performed By: #### L 300.3900 #### [facility] [address] [place], [address] T PROT 7.2 g/dL Normal 5.9-8.4 [facility] Comment on above: Order Comment: 412.2 Performed By: #### L 300.3900 #### [facility] [address] [place], [address] Urea nitrogen [Mass/Vol] 36 mg/dL High 4-19 [facility] Comment on above: Order Comment: 412.2 Performed By: #### L 300.3900 #### [facility] [address] [place], [address] Prothrombin Time w/INRon INR Coag (PPP) [Relative time] 3.3 {INR} Normal [facility] Comment on above: Order Comment: 412.2 Performed By: #### L 300.3900 #### [facility] [address] [place], [address] PT Coag (PPP) [Time] 34.4 s High 11.7-14.9 [facility] Comment on above: Order Comment: 412.2 Performed By: #### L 300.3900 #### [facility] [address] [place], [address] 36on 03-22-2025 36 Patient discharged to [facility] on 03/21 - please follow [facility] [employer] normalized rat io (INR) calculationOrdered By: Kayley Melendrez on 03-22-2025 INR Coag (Bld) [Relative time] 2.9 {INR} [facility] Prothrombin Time w/INRon INR Coag (PPP) [Relative time] 2.9 {INR} Normal [facility] Comment on above: Performed By: #### L 100.0100, L500.4050, L300.3900 #### [facility] [address] [place], [address] PT Coag (PPP) [Time] 30.7 s High 11.7-14.9 [facility] Comment on above: Performed By: #### L 100.0100, L500.4050, L300.3900 #### [facility] [address] [place], [address] Prothrombin timeOrdered By: Kayley Melendrez on 03-22-2025 PT Coag (PPP) [Time] 30.7 s High 11.7-14.9 [facility] 30on 03-21-2025 30 Normal [facility] [id number] 03-21-2025 [id number] Normal [facility] [id number] MAR, Labs & Discharge med list transmitted to [facility] [place] [facility] via [employer] per TCC request. Electronically signed by NELSON Rodrigues Normal [facility] [id number] Normal [facility] [id number] [facility] APTTon 03-21-2025 aPTT Coag (Bld) [Time] 50.7 s High 20.0-30.5 [facility] Comment on above: Result Comment: ARPAN Kaplan COMMENTS:NOTE: The therapeutic time for Heparin anticoagulation, based on Xa activity inhibition, is an APTT of 46-80 seconds. Performed By: #### L AB320, [id number] ####Phys Assistant: DOMENICA JARA ([phone])[facility])[address] [place] [address] CBC (HEMOGRAM)on 03-21-2025 Erythrocyte distribution width (RBC) [Ratio] 19.9 % High 11.5-15.0 [facility] Comment on above: Performed By: #### L AB294 ####Phys Assistant: DOMENICA JARA ([phone])[facility])[address] [place] [address] Hematocrit (Bld) [Volume fraction] 29.2 % Low 40.0-52.0 [facility] Comment on above: Performed By: #### L AB294 ####Phys Assistant: DOMENICA JARA ([phone])[facility] ([facility])[address] [place] [address] Hemoglobin (Bld) [Mass/Vol] 8.8 g/dL Low 13.0-18.0 [facility] Comment on above: Performed By: #### L AB294 ####Phys Assistant: DOMENICA JARA ([id number])[facility])[address] [place] [address] MCH (RBC) [Entitic mass] 30.2 pg Normal 26.0-34.0 [facility] Comment on above: Performed By: #### L AB294 ####Phys Assistant: DOMENICA JARA ([phone])[facility])[address] [place] [address] MCHC 30.1 % Low 30.5-36.0 [facility] Comment on above: Performed By: #### L AB294 ####Phys Assistant: DOMENICA JARA ([phone])[facility])[address] [place] [address] MCV (RBC) [Entitic vol] 100.3 fL High 77.0-99.0 [facility] Comment on above: Performed By: #### L AB294 ####Phys Assistant: DOMENICA JARA ([id number])[facility])[address] [place] [address] Platelet mean volume (Bld) [Entitic vol] 8.9 fL Low 9.0-12.7 [facility] Comment on above: Performed By: #### L AB294 ####Phys Assistant: DOMENICA JARA ([id number])[facility])[address] [place] [address] Platelets (Bld) [#/Vol] 271 10*3/uL Normal 140-440 [facility] Comment on above: Performed By: #### L AB294 ####Phys Assistant: DOMENICA JARA ([phone])[facility])[address] [place] [address] RBC (Bld) [#/Vol] 2.91 10*6/uL Low 4.40-5.90 [facility] Comment on above: Performed By: #### L AB294 ####Phys Assistant: DOMENICA JARA ([id number])[facility])[address] [place] [address] WBC (Bld) [#/Vol] 8.0 10*3/uL Normal 3.6-10.7 [facility] Comment on above: Performed By: #### L AB294 ####Phys Assistant: DOMENICA JARA ([id number])[facility])[address] [place] [address] CBC panel Auto (Bld)on 03-21 Erythrocyte distribution width (RBC) [Ratio] 19.9 % High 11.5 - 15.0 % [facility] Hematocrit (Bld) [Volume fraction] 29.2 % Low 40.0 - 52.0 % [facility] Hemoglobin (Bld) [Mass/Vol] 8.8 g/dL Low 13.0 - 18.0 g/dL [facility] Interpretation and review of laboratory results Abnormal [facility] MCH (RBC) [Entitic mass] 30.2 pg 26. 0 - 34.0 pg [facility] MCHC (RBC) [Mass/Vol] 30.1 % Low 30.5 - 36.0 % [facility] MCV (RBC) [Entitic vol] 100.3 fL High 77.0 - 99.0 fL [facility] Platelet mean volume (Bld) [Entitic vol] 8.9 fL Low 9.0 - 12.7 fL [facility] Platelets (Bld) [#/Vol] 271 10*3/uL 140 - 440 10*3/uL [facility] RBC (Bld) [#/Vol] 2.91 10*6/uL Low 4.40 - 5.9 0 10*6/uL [facility] WBC (Bld) [#/Vol] 8 10*3/uL 3.6 - 10.7 10*3/uL [facility] COMPREHENSIVE METABOLIC PANE Victor M 03-21-2025 Albumin [Mass/Vol] 2.0 g/dL Low 3.5-5.0 [facility] Comment on above: Performed By: #### L AB17, [id number] ####Phys Assistant: DOMENICA JARA ([id number])[facility] ([facility])[address] [place] [address] ALP [Catalytic activity/Vol] 217 U/L High 40-150 [facility] Comment on above: Performed By: #### L AB17, [id number] ####Phys Assistant: DOMENICA JARA ([id number])[facility] ([facility])[address] [place] [address] [place] ALT [Catalytic activity/Vol] 13 U/L Normal <40 [facility] Comment on above: Performed By: #### L AB17, [id number] ####Phys Assistant: DOMENICA JARA ([id number])[facility] ([facility])[address] [place] [address] Anion gap [Moles/Vol] 8 mmol/L Normal 3-13 [facility] Comment on above: Performed By: #### L AB17, [id number] ####Phys Assistant: DOMENICA JARA ([id number])[facility] ([facility])[address] [place] [address] AST [Catalytic activity/Vol] 59 U/L High <34 [facility] Comment on above: Performed By: #### L AB17, [id number] ####Phys Assistant: DOMENICA JARA ([phone])[facility] ([facility])[address] [place] [address] Bilirubin [Mass/Vol] 0.9 mg/dL Normal <1.2 [facility] Comment on above: Performed By: #### L AB17, [id number] ####Phys Assistant: DOMENICA JARA ([id number])[facility] ([facility])[address] [place] [address] Calcium [Mass/Vol] 9.0 mg/dL Normal 8.4-10.2 [facility] Comment on above: Performed By: #### L AB17, [id number] ####Phys Assistant: DOMENICA JARA ([id number])[facility] ([facility])[address] [place] [address] [place] Chloride [Moles/Vol] 99 mmol/L Normal 98-107 [facility] Comment on above: Performed By: #### L AB17, [id number] ####Phys Assistant: DOMENICA JARA ([id number])[facility] ([facility])[address] [place] [address] [place] CO2 [Moles/Vol] 27 mmol/L Normal 22-29 [facility] Comment on above: Performed By: #### L AB17, [id number] ####Phys Assistant: DOMENICA JARA ([phone])[facility])[address] [place] [address] Creatinine [Mass/Vol] 3.36 mg/dL High 0.72-1.25 [facility] Comment on above: Performed By: #### L AB17, [id number] ####Phys Assistant: DOMENICA JARA ([phone])[facility])[address] [place] [address] GLOMERULAR FILTRATION RATE ML/MIN/1.73 SQ M.PREDICTED 20.2 mL/min/1.73m*2 Low >60.0 [facility] Comment on above: Result Comment: Calc ulation based on the Chronic Kidney Disease Epidemiology Collaboration (CKD-EPI) equation refit without adjustment for race Performed By: #### L AB17, [id number] ####Phys Assistant: DOMENCIA JARA ([phone])[facility])[address] [place] [address] Glucose [Mass/Vol] 91 mg/dL Normal 74-100 [facility] Comment on above: Performed By: #### L AB17, [id number] ####Phys Assistant: DOMENICA JARA ([phone])[address] Potassium [Moles/Vol] 5.0 mmol/L Normal 3.5-5.1 [facility] Comment on above: Result Comment: [facility] potassium values may be up to 0.5 mmol/L lower than serum values. Performed By: #### L AB17, [id number] ####Phys Assistant: DOMENICA JARA ([phone])[facility])[address] [place] [address] Protein [Mass/Vol] 7.2 g/dL Normal 6.4-8.3 [facility] Comment on above: Performed By: #### L AB17, [id number] ####Phys Assistant: DOMENICA JARA ([phone])[facility])[address] [place] [address] [place] Sodium [Moles/Vol] 134 mmol/L Low 136-145 [facility] Comment on above: Performed By: #### L AB17, [id number] ####Phys Assistant: DOMENICA JARA ([phone])[facility] ([facility])[address] [place] [address] Urea nitrogen [Mass/Vol] 24 mg/dL High 9-23 [facility] Comment on above: Performed By: #### L AB17, [id number] ####Phys Assistant: DOMENICA JARA ([phone])[facility] [place] [address] Comprehensive metabolic 1998 panelon 03-21-2025 Albumin [Mass/Vol] 2 g/dL Low 3.5 - 5.0 g/dL [facility] ALP [Catalytic activity/Vol] 217 U/L High 40 - 150 U/L [facility] ALT [Catalytic activity/Vol] 13 U/L NINF - 40 U/L [facility] Anion gap [Moles/Vol] 8 mmol/L 3 - 13 mmol/L [facility] AST [Catalytic activity/Vol] 59 U/L High NINF - 34 U/L [facility] Bilirubin [Mass/Vol] 0.9 mg/dL NINF - 1.2 mg/dL [facility] Calcium [Mass/Vol] 9 mg/dL 8.4 - 10. 2 mg/dL [facility] Chloride [Moles/Vol] 99 mmol/L 98 - 10 7 mmol/L [facility] CO2 [Moles/Vol] 27 mmol/L 22 - 29 mmol/L [facility] Creatinine [Mass/Vol] 3.36 mg/dL High 0.72 - 1.25 mg/dL [facility] GFR/1.73 sq M.predicted (S/P/Bld) [Vol rate/Area] 20.2 mL/min Low - PINF [facility] Comment on above: Calculation based on the Chronic Kidney Disease Epidemiology Collaboration (CKD-EPI) equation refit without adjustment for race Glucose [Mass/Vol] 91 mg/dL 74 - 100 mg/dL [facility] Interpretation and review of laboratory results Abnormal [facility] Potassium [Moles/Vol] 5 mmol/L 3.5 - 5.1 mmol/L [facility] Comment on above: Plasma potassium macey ues may be up to 0.5 mmol/L lower than serum values. Protein [Mass/Vol] 7.2 g/dL 6.4 - 8.3 g/dL [facility] Sodium [Moles/Vol] 134 mmol/L Low 136 - 145 mmol/L [facility] Urea nitrogen [Mass/Vol] 24 mg/dL High 9 - 23 mg/d L [facility] Laboratory - Chemistry and C hemistry - challengeon 03-21-2025 Glucose [Mass/Vol] 88 mg/dL 70 - 100 mg/dL [facility] Magnesium [Mass/Vol] 1.8 mg/dL 1.6 - 2 .6 mg/dL [facility] Laboratory - Coagulationon 0 03-21-2025 PT Coag (Bld) [Time] 29 s High 9.0 - 12.0 s [facility] MAGNESIUMon 03-21-2025 Magnesium [Mass/Vol] 1.8 mg/dL Normal 1.6-2.6 [facility] Comment on above: Result Comment: ARPAN Kaplan COMMENTS:Higher values can be expected in females during menses. Performed By: #### L AB17, [id number] ####Phys Assistant: DOMENICA JARA ([phone])[facility] ([id number] Magnesium [Mass/Vol]on 03-21 Interpretation and review of laboratory results Normal [facility] Higher values can be expected in females during menses. [facility] No Panel Informationon 03-21 Interpretation and review of laboratory results Normal [facility] Performed by: [place] [address] CLIA ID: [id number] [facility] Interpretation and review of laboratory results Abnormal [facility] Nursing Noteon 03-21-2025 Nursing Note Educated pt on importance of prescribed medications. Pt still refused. Normal [facility] PROTHROMBIN TIMEon INR Coag (PPP) [Relative time] 2.9 {INR} High 0.9-1.1 [facility] Comment on above: Result Comment: Vaughn mmended [...] Myocardial Infarction Performed By: #### Tameka AB320, [id number] ####Phys Assistant: DOMENICA JARA ([id number])[facility])[address] [place] [address] PT Coag (PPP) [Time] 29.0 s High 9.0-12.0 [facility] Sp[facility] Pain [facility] Comment on above: Performed By: #### Tameka AB320, [id number] ####Phys Assistant: DOMENICA JARA ([phone])[facility] ([facility])[address] [place] [address] PT Coag (Bld) [Time]on 03-21 INR Coag (PPP) [Relative time] 2.9 {INR} High 0.9 - 1.1 [facility] Comment on above: Recommended Anticoag ulant Therapy: [...] Infarction Progress Noteon 03-21-[address] [facility] Define My Style [facility] Progress Note Patient quit smoking in September. Accepting of handout with contact information for additional support to remain quit if neccesary. Normal [facility] Progress Note Normal [facility] [employer] [facility] Progress Note Normal [facility] ABODO [facility] Progress Note Normal [facility] aPTT Coag (Bld) [Time]on aPTT Coag (PPP) [Time] 50.7 s High 20.0 - 30.[address] [facility] NOTE: The therapeutic time for Heparin anticoagulation, based on Xa activity inhibition, is an APTT of 46-80 seconds. [facility] 30on 03-20-2025 30 Normal [facility] [id number] 03-20-2025 [id number] Normal [facility] 36on 03-20-2025 36 Patient was re-admitted on 03/13. Inpatient consult team is following his care. Normal [facility] APTTon 03-20-2025 aPTT Coag (Bld) [Time] 68.9 s High 20.0-30.5 [facility] Comment on above: Result Comment: ARPAN Kaplan COMMENTS:NOTE: The therapeutic time for Heparin anticoagulation, based on Xa activity inhibition, is an APTT of 46-80 seconds. Performed By: #### L AB325 ####Phys Assistant: DOMENICA JARA ([id number])[address] aPTT Coag (Bld) [Time] 61.5 s High 20.0-30.5 [facility] Comment on above: Result Comment: ARPAN Kaplan COMMENTS:NOTE: The therapeutic time for Heparin anticoagulation, based on Xa activity inhibition, is an APTT of 46-80 seconds. Performed By: #### L AB325 ####Phys Assistant: DOMENICA JARA ([phone])[address] aPTT Coag (Bld) [Time] 44.1 s High 20.0-30.5 [facility] Comment on above: Result Comment: ARPAN Kaplan COMMENTS:NOTE: The therapeutic time for Heparin anticoagulation, based on Xa activity inhibition, is an APTT of 46-80 seconds. Performed By: #### L AB320, [id number] ####Phys Assistant: DOMENICA JARA ([phone])[address] CBC (HEMOGRAM)on 03-20-2025 Erythrocyte distribution width (RBC) [Ratio] 20.2 % High 11.5-15.0 [facility] Comment on above: Performed By: #### L AB294 ####Phys Assistant: DOMENICA [id number])[facility] ([facility])[address] [place] [address] Hematocrit (Bld) [Volume fraction] 30.3 % Low 40.0-52.0 [facility] Comment on above: Performed By: #### L AB294 ####Phys Assistant: DOMENICA JARA ([id number])[facility])[address] [place] [address] Hemoglobin (Bld) [Mass/Vol] 9.2 g/dL Low 13.0-18.0 [facility] Comment on above: Performed By: #### L AB294 ####Phys Assistant: DOMENICA JARA ([phone])[facility])[address] [place] [address] MCH (RBC) [Entitic mass] 30.7 pg Normal 26.0-34.0 [facility] Comment on above: Performed By: #### L AB294 ####Phys Assistant: DOMENICA JARA ([id number])[facility] ([facility])[address] [place] [address] MCHC 30.4 % Low 30.5-36.0 [facility] Comment on above: Performed By: #### L AB294 ####Phys Assistant: DOMENICA JARA ([id number])[facility] ([facility])[address] [place] [address] MCV (RBC) [Entitic vol] 101.0 fL High 77.0-99.0 [facility] Comment on above: Performed By: #### L AB294 ####Phys Assistant: DOMENICA JARA ([phone])[facility] ([facility])[address] [place] [address] Platelet mean volume (Bld) [Entitic vol] 9.2 fL Normal 9.0-12.7 [facility] Comment on above: Performed By: #### L AB294 ####Phys Assistant: DOMENICA JARA ([id number])[facility] ([facility])[address] [place] [address] Platelets (Bld) [#/Vol] 308 10*3/uL Normal 140-440 [facility] Comment on above: Performed By: #### L AB294 ####Phys Assistant: DOMENICA JARA ([phone])[facility])[address] [place] [address] RBC (Bld) [#/Vol] 3.00 10*6/uL Low 4.40-5.90 [facility] Comment on above: Performed By: #### L AB294 ####Phys Assistant: DOMENICA JARA ([phone])[facility])[address] [place] [address] WBC (Bld) [#/Vol] 8.1 10*3/uL Normal 3.6-10.7 [facility] Comment on above: Performed By: #### L AB294 ####Phys Assistant: DOMENICA JARA ([id number])[facility] ([facility])[address] [place] [address] CBC panel Auto (Bld)Ordered By: Anu Graham on 03-20-2025 Erythrocyte distribution width (RBC) [Ratio] 20.2 % High 11.5 - 15.0 % [facility] Hematocrit (Bld) [Volume fraction] 30.3 % Low 40.0 - 52.0 % [facility] Hemoglobin (Bld) [Mass/Vol] 9.2 g/dL Low 13.0 - 18.0 g/dL [facility] Interpretation and review of laboratory results Abnormal [facility] MCH (RBC) [Entitic mass] 30.7 pg 26. 0 - 34.0 pg [facility] MCHC (RBC) [Mass/Vol] 30.4 % Low 30.5 - 36.0 % [facility] MCV (RBC) [Entitic vol] 101 fL High 77.0 - 99.0 fL [facility] Platelet mean volume (Bld) [Entitic vol] 9.2 fL 9.0 - 12.7 fL [facility] Platelets (Bld) [#/Vol] 308 10*3/uL 140 - 440 10*3/uL [facility] RBC (Bld) [#/Vol] 3 10*6/uL Low 4.40 - 5.9 0 10*6/uL [facility] WBC (Bld) [#/Vol] 8.1 10*3/uL 3.6 - 10.7 10*3/uL [facility] COMPREHENSIVE METABOLIC PANE Victor M 03-20-2025 Albumin [Mass/Vol] 1.9 g/dL Low 3.5-5.0 [facility] Comment on above: Performed By: #### Tameka AB103, LAB17 ####Phys Assistant: DOMENICA JARA ([phone])[facility] ([facility])[address] [place] [address] ALP [Catalytic activity/Vol] 194 U/L High 40-150 [facility] Comment on above: Performed By: #### Tameka KWONG, LAB17 ####Phys Assistant: DOMENICA JARA ([phone])[facility])[address] [place] [address] ALT [Catalytic activity/Vol] 13 U/L Normal <40 [facility] Comment on above: Performed By: #### Tameka ISAAC103, LAB17 ####Phys Assistant: DOMENICA JARA ([phone])[facility] ([facility])[address] [place] [address] Anion gap [Moles/Vol] 10 mmol/L Normal 3-13 [facility] Comment on above: Performed By: #### Tameka ISAAC103, LAB17 ####Phys Assistant: DOMENICA JARA ([phone])[facility])[address] [place] [address] AST [Catalytic activity/Vol] 46 U/L High <34 [facility] Comment on above: Performed By: #### L AB103, LAB17 ####Phys Assistant: DOMENICA JARA ([phone])[facility])[address] [place] [address] Bilirubin [Mass/Vol] 0.8 mg/dL Normal <1.2 [facility] Comment on above: Performed By: #### L AB103, LAB17 ####Phys Assistant: DOMENICA JARA ([id number])[facility] [place] [address] Calcium [Mass/Vol] 9.1 mg/dL Normal 8.4-10.2 [facility] Comment on above: Performed By: #### L AB103, LAB17 ####Phys Assistant: DOMENICA JARA ([phone])[facility] ([facility])[address] [place] [address] [place] Chloride [Moles/Vol] 102 mmol/L Normal 98-107 [facility] Comment on above: Performed By: #### L AB103, LAB17 ####Phys Assistant: DOMENICA JARA ([id number])[facility] ([facility])[address] [place] [address] CO2 [Moles/Vol] 24 mmol/L Normal 22-29 [facility] Comment on above: Performed By: #### Tameka KWONG, LAB17 ####Phys Assistant: DOMENICA JARA ([id number])[facility] ([facility])[address] [place] [address] Creatinine [Mass/Vol] 4.28 mg/dL High 0.72-1.25 [facility] Comment on above: Performed By: #### L VARGHESE, LAB17 ####Phys Assistant: DOMENICA JARA ([phone])[facility] ([facility])[address] [place] [address] [place] GLOMERULAR FILTRATION RATE ML/MIN/1.73 SQ M.PREDICTED 15.1 mL/min/1.73m*2 Low >60.0 [facility] Comment on above: Result Comment: Calc ulation based on the Chronic Kidney Disease Epidemiology Collaboration (CKD-EPI) equation refit without adjustment for race Performed By: #### L ABRadha, LAB17 ####Phys Assistant: DOMENICA JARA ([phone])[facility] ([facility])[address] [place] [address] [place] Glucose [Mass/Vol] 91 mg/dL Normal 74-100 [facility] Comment on above: Performed By: #### L AB103, LAB17 ####Phys Assistant: ODMENICA [phone])[facility] ([facility])[address] [place] [address] Potassium [Moles/Vol] 5.3 mmol/L High 3.5-5.1 [facility] Comment on above: Result Comment: [facility] potassium values may be up to 0.5 mmol/L lower than serum values. Performed By: #### L AB103, LAB17 ####Phys Assistant: DOMENICA JARA ([id number])[facility] ([facility])[address] [place] [address] Protein [Mass/Vol] 7.3 g/dL Normal 6.4-8.3 [facility] Comment on above: Performed By: #### L AB103, LAB17 ####Phys Assistant: DOMENICA JARA ([phone])[facility])[address] [place] [address] Sodium [Moles/Vol] 136 mmol/L Normal 136-145 [facility] Comment on above: Performed By: #### L AB103, [id number] ####Phys Assistant: DOMENICA JARA ([phone])[facility])[address] [place] [address] Urea nitrogen [Mass/Vol] 32 mg/dL High 9-23 [facility] Comment on above: Performed By: #### L AB103, [id number] ####Phys Assistant: DOMENICA JARA ([id number])[facility])[address] [place] [address] Comprehensive metabolic 1998 panelon 03-20-2025 Albumin [Mass/Vol] 1.9 g/dL Low 3.5 - 5.0 g/dL [facility] ALP [Catalytic activity/Vol] 194 U/L High 40 - 150 U/L [facility] ALT [Catalytic activity/Vol] 13 U/L NINF - 40 U/L [facility] Anion gap [Moles/Vol] 10 mmol/L 3 - 13 mmol/L [facility] AST [Catalytic activity/Vol] 46 U/L High NINF - 34 U/L [facility] Bilirubin [Mass/Vol] 0.8 mg/dL NINF - 1.2 mg/dL [facility] Calcium [Mass/Vol] 9.1 mg/dL 8.4 - 10. 2 mg/dL [facility] Chloride [Moles/Vol] 102 mmol/L 98 - 10 7 mmol/L [facility] CO2 [Moles/Vol] 24 mmol/L 22 - 29 mmol/L [facility] Creatinine [Mass/Vol] 4.28 mg/dL High 0.72 - 1.25 mg/dL [facility] GFR/1.73 sq M.predicted (S/P/Bld) [Vol rate/Area] 15.1 mL/min Low - PINF [facility] Comment on above: Calculation based on the Chronic Kidney Disease Epidemiology Collaboration (CKD-EPI) equation refit without adjustment for race Glucose [Mass/Vol] 91 mg/dL 74 - 100 mg/dL [facility] Interpretation and review of laboratory results Abnormal [facility] Potassium [Moles/Vol] 5.3 mmol/L High 3.5 - 5.1 mmol/L [facility] Comment on above: Plasma potassium macey ues may be up to 0.5 mmol/L lower than serum values. Protein [Mass/Vol] 7.3 g/dL 6.4 - 8.3 g/dL [facility] Sodium [Moles/Vol] 136 mmol/L 136 - 145 mmol/L [facility] Urea nitrogen [Mass/Vol] 32 mg/dL High 9 - 23 mg/d L [facility] HBV surface Ab IA Qnon 03-20 Interpretation: <8.0 Non-Reactive 8.0-11.9 Equivocal >= 12.0 Ab Detected Note: If an equivocal result is interpreted, an antibody status is unable to be determined. Collect new specimen if clinically indicated. [facility] HBV surface Ag IA Qlon 03-20 Interpretation and review of laboratory results Normal [facility] HEPATITIS B SURFACE ANTIBODY on 03-20-2025 HEPATITIS B VIRUS SURFACE AB <8.0 Normal [facility] Comment on above: Result Comment: ARPAN Kaplan COMMENTS:Interpretation:<8.0 Non-Reactive8.0-11.9 Equivocal>= 12.0 Ab DetectedNote: If an equivocal result is interpreted, an antibody status is unable to be determined. Collect new specimen if clinically indicated. Performed By: #### L AB472, [id number] ####Phys Assistant: DOMENICA JARA ([phone])[facility] ([facility])[address] [place] [address] HEPATITIS B SURFACE ANTIGENo n 03-20-2025 HEPATITIS B VIRUS SURFACE AG Not detected Normal Not Detected [facility] Comment on above: Performed By: #### L AB472, [id number] ####Phys Assistant: DOMENICA JARA ([phone])[facility] ([facility])[address] [place] [address] Laboratory - Chemistry and C hemistry - challengeon 03-20-2025 Magnesium [Mass/Vol] 2 mg/dL 1.6 - 2 .6 mg/dL [facility] Laboratory - Coagulationon 0 03-20-2025 PT Coag (Bld) [Time] 19.1 s High 9.0 - 12.0 s [facility] Laboratory - Microbiology an d Antimicrobial susceptibilityon 03-20-2025 HBV surface Ag IA Ql Not detected Not Detected [facility] HBV surface Ab IA Qn mIU/mL [facility] MAGNESIUMon 03-20-2025 Magnesium [Mass/Vol] 2.0 mg/dL Normal 1.6-2.6 [facility] Comment on above: Result Comment: ARPAN Kaplan COMMENTS:Higher values can be expected in females during menses. Performed By: #### L AB103, [id number] ####Phys Assistant: DOMENICA JARA ([phone])[facility] ([facility])[address] [place] [address] Magnesium [Mass/Vol]on 03-20 Interpretation and review of laboratory results Normal [facility] Higher values can be expected in females during menses. [facility] No Panel Informationon 03-20 [facility] Interpretation and review of laboratory results Abnormal [facility] Nursing Noteon 03-20-2025 Nursing Note Normal [facility] PROTHROMBIN TIMEon INR Coag (PPP) [Relative time] 1.9 {INR} High 0.9-1.1 [facility] Comment on above: Result Comment: Vaughn mmended [...] Myocardial Infarction Performed By: #### Tameka AB320, [id number] ####Phys Assistant: DOMENICA JARA ([phone])[facility])[address] [place] [address] PT Coag (PPP) [Time] 19.1 s High 9.0-12.0 [facility] Comment on above: Performed By: #### Tameka [id number], [id number] ####Phys Assistant: DOMENICA JARA ([phone])[facility] ([facility])[address] [place] [address] PT Coag (Bld) [Time]on 03-20 INR Coag (PPP) [Relative time] 1.9 {INR} High 0.9 - 1.1 [facility] Comment on above: Recommended Anticoag [...] Progress Noteon 03-20-[address] [facility] 365looks (Coqueta.me)t ABODO System [facility] Progress Note Normal [facility] [employer] System [facility] Progress Note Normal [facility] [employer] [facility] aPTT Coag (Bld) [Time]on aPTT Coag (PPP) [Time] 68.9 s High 20.0 - 30.5 s [facility] Interpretation and review of laboratory results Abnormal [facility] NOTE: The therapeutic time for Heparin anticoagulation, based on Xa activity inhibition, is an APTT of 46-80 seconds. [facility] aPTT Coag (PPP) [Time] 61.5 s High 20.0 - 30.5 s [facility] Interpretation and review of laboratory results Abnormal [facility] NOTE: The therapeutic time for Heparin anticoagulation, based on Xa activity inhibition, is an APTT of 46-80 seconds. [facility] aPTT Coag (PPP) [Time] 44.1 s High 20.0 - 30.5 s [facility] NOTE: The therapeutic time for Heparin anticoagulation, based on Xa activity inhibition, is an APTT of 46-80 seconds. [facility] 30on 03-19-2025 30 Normal [facility] 30 Normal [facility] [id number] 03-19-2025 [id number] Normal [facility] APTTon 03-19-2025 aPTT Coag (Bld) [Time] 47.3 s High 20.0-30.5 [facility] Comment on above: Result Comment: ARPAN Kaplan COMMENTS:NOTE: The therapeutic time for Heparin anticoagulation, based on Xa activity inhibition, is an APTT of 46-80 seconds. Performed By: #### L AB325 ####Phys Assistant: DOMENICA JARA ([phone])[address] aPTT Coag (Bld) [Time] 46.4 s High 20.0-30.5 [facility] Comment on above: Result Comment: ARPAN Kaplan COMMENTS:NOTE: The therapeutic time for Heparin anticoagulation, based on Xa activity inhibition, is an APTT of 46-80 seconds. Performed By: #### L AB320, [id number] ####Phys Assistant: DOMENICA JARA ([phone])[facility] ([facility])[address] [place] [address] CBC (HEMOGRAM)on 03-19-2025 Erythrocyte distribution width (RBC) [Ratio] 20.8 % High 11.5-15.0 [facility] Comment on above: Performed By: #### L AB294 ####Phys Assistant: DOMENICA JARA ([phone])[facility])[address] [place] [address] Hematocrit (Bld) [Volume fraction] 30.4 % Low 40.0-52.0 [facility] Comment on above: Performed By: #### L AB294 ####Phys Assistant: DOMENICA JARA ([phone])[facility])[address] [place] [address] Hemoglobin (Bld) [Mass/Vol] 8.9 g/dL Low 13.0-18.0 [facility] Comment on above: Performed By: #### L AB294 ####Phys Assistant: DOMENICA JARA ([phone])[facility])[address] [place] [address] MCH (RBC) [Entitic mass] 29.9 pg Normal 26.0-34.0 [facility] Comment on above: Performed By: #### L AB294 ####Phys Assistant: DOMENICA JARA ([phone])[facility])[address] [place] [address] MCHC 29.3 % Low 30.5-36.0 [facility] Comment on above: Performed By: #### L AB294 ####Phys Assistant: DOMENICA JARA ([phone])[facility] ([facility])[address] [place] [address] MCV (RBC) [Entitic vol] 102.0 fL High 77.0-99.0 S [facility] Comment on above: Performed By: #### L AB294 ####Phys Assistant: DOMENICA JARA ([phone])[facility])[address] [place] [address] Platelet mean volume (Bld) [Entitic vol] 9.3 fL Normal 9.0-12.7 [facility] Comment on above: Performed By: #### L AB294 ####Phys Assistant: DOMENICA JARA ([phone])[facility])[address] [place] [address] Platelets (Bld) [#/Vol] 320 10*3/uL Normal 140-440 [facility] Comment on above: Performed By: #### L AB294 ####Phys Assistant: DOMENICA JARA ([id number])[facility] ([facility])[address] [place] [address] RBC (Bld) [#/Vol] 2.98 10*6/uL Low 4.40-5.90 [facility] Comment on above: Performed By: #### L AB294 ####Phys Assistant: DOMENICA JARA ([phone])[facility] ([facility])[address] [place] [address] WBC (Bld) [#/Vol] 7.8 10*3/uL Normal 3.6-10.7 [facility] Comment on above: Performed By: #### L AB294 ####Phys Assistant: DOMENICA JARA ([id number])[facility] ([facility])[address] [place] [address] CBC panel Auto (Bld)Ordered By: Liseth Granado on 03-19-2025 Erythrocyte distribution width (RBC) [Ratio] 20.8 % High 11.5 - 15.0 % [facility] Hematocrit (Bld) [Volume fraction] 30.4 % Low 40.0 - 52.0 % [facility] Hemoglobin (Bld) [Mass/Vol] 8.9 g/dL Low 13.0 - 18.0 g/dL [facility] Interpretation and review of laboratory results Abnormal [facility] MCH (RBC) [Entitic mass] 29.9 pg 26. 0 - 34.0 pg [facility] MCHC (RBC) [Mass/Vol] 29.3 % Low 30.5 - 36.0 % [facility] MCV (RBC) [Entitic vol] 102 fL High 77.0 - 99.0 fL [facility] Platelet mean volume (Bld) [Entitic vol] 9.3 fL 9.0 - 12.7 fL [facility] Platelets (Bld) [#/Vol] 320 10*3/uL 140 - 440 10*3/uL [facility] RBC (Bld) [#/Vol] 2.98 10*6/uL Low 4.40 - 5.9 0 10*6/uL [facility] WBC (Bld) [#/Vol] 7.8 10*3/uL 3.6 - 10.7 10*3/uL [facility] COMPREHENSIVE METABOLIC PANE Victor M 03-19-2025 Albumin [Mass/Vol] 2.0 g/dL Low 3.5-5.0 [facility] Comment on above: Performed By: #### L AB17, [id number] ####Phys Assistant: DOMENICA JARA ([id number])[facility] ([facility])[address] [place] [address] ALP [Catalytic activity/Vol] 221 U/L High 40-150 [facility] Comment on above: Performed By: #### L AB17, [id number] ####Phys Assistant: DOMENICA JARA ([id number])[facility] ([facility])[address] [place] [address] ALT [Catalytic activity/Vol] 14 U/L Normal <40 [facility] Comment on above: Performed By: #### L AB17, [id number] ####Phys Assistant: DOMENICA JARA ([id number])[facility] ([facility])[address] [place] [address] Anion gap [Moles/Vol] 8 mmol/L Normal 3-13 [facility] Comment on above: Performed By: #### L AB17, [id number] ####Phys Assistant: DOMENICA JARA ([id number])[facility] ([facility])[address] [place] [address] AST [Catalytic activity/Vol] 52 U/L High <34 [facility] Comment on above: Performed By: #### L AB17, [id number] ####Phys Assistant: DOMENICA JARA ([phone])[facility] ([facility])[address] [place] [address] [place] Bilirubin [Mass/Vol] 0.9 mg/dL Normal <1.2 [facility] Comment on above: Performed By: #### L AB17, [id number] ####Phys Assistant: DOMENICA JARA ([phone])[facility])[address] [place] [address] [place] Calcium [Mass/Vol] 9.0 mg/dL Normal 8.4-10.2 [facility] Comment on above: Performed By: #### L AB17, [id number] ####Phys Assistant: DOMENICA JARA ([id number])[facility] ([facility])[address] [place] [address] Chloride [Moles/Vol] 102 mmol/L Normal 98-107 [facility] Comment on above: Performed By: #### L AB17, [id number] ####Phys Assistant: DOMENICA JARA ([id number])[facility] ([facility])[address] [place] [address] [place] CO2 [Moles/Vol] 27 mmol/L Normal 22-29 [facility] Comment on above: Performed By: #### L AB17, [id number] ####Phys Assistant: DOMENICA JARA ([id number])[facility] ([facility])[address] [place] [address] Creatinine [Mass/Vol] 3.67 mg/dL High 0.72-1.25 [facility] Comment on above: Performed By: #### L AB17, [id number] ####Phys Assistant: DOMENICA JARA ([phone])[facility] ([facility])[address] [place] [address] GLOMERULAR FILTRATION RATE ML/MIN/1.73 SQ M.PREDICTED 18.2 mL/min/1.73m*2 Low >60.0 [facility] Comment on above: Result Comment: Calc ulation based on the Chronic Kidney Disease Epidemiology Collaboration (CKD-EPI) equation refit without adjustment for race Performed By: #### L AB17, [id number] ####Phys Assistant: DOMENICA JARA ([id number])[facility] [place] [address] [place] Glucose [Mass/Vol] 85 mg/dL Normal 74-100 [facility] Comment on above: Performed By: #### L AB17, [id number] ####Phys Assistant: DOMENICA JARA ([id number])[facility] ([facility])[address] [place] [address] [place] Potassium [Moles/Vol] 4.0 mmol/L Normal 3.5-5.1 [facility] Comment on above: Result Comment: [facility] potassium values may be up to 0.5 mmol/L lower than serum values. Performed By: #### L AB17, [id number] ####Phys Assistant: DOMENICA JARA ([id number])[facility] [place] [address] Protein [Mass/Vol] 7.4 g/dL Normal 6.4-8.3 [facility] Comment on above: Performed By: #### L AB17, [id number] ####Phys Assistant: DOMENICA JARA ([id number])[facility] [place] [address] Sodium [Moles/Vol] 137 mmol/L Normal 136-145 [facility] Comment on above: Performed By: #### L AB17, [id number] ####Phys Assistant: DOMENICA JARA ([id number])[facility] [place] [address] Urea nitrogen [Mass/Vol] 24 mg/dL High 06-19 [facility] Comment on above: Performed By: #### L AB17, [id number] ####Phys Assistant: DOMENICA JARA ([phone])[facility] ([facility])[address] [place] [address] Comprehensive metabolic 1998 panelOrdered By: Rikki Caballero on 03-19-2025 Albumin [Mass/Vol] 2 g/dL Low 3.5 - 5.0 g/dL [facility] ALP [Catalytic activity/Vol] 221 U/L High 40 - 150 U/L [facility] ALT [Catalytic activity/Vol] 14 U/L NINF - 40 U/L [facility] Anion gap [Moles/Vol] 8 mmol/L 3 - 13 mmol/L [facility] AST [Catalytic activity/Vol] 52 U/L High NINF - 34 U/L [facility] Bilirubin [Mass/Vol] 0.9 mg/dL NINF - 1.2 mg/dL [facility] Calcium [Mass/Vol] 9 mg/dL 8.4 - 10. 2 mg/dL [facility] Chloride [Moles/Vol] 102 mmol/L 98 - 10 7 mmol/L [facility] CO2 [Moles/Vol] 27 mmol/L 22 - 29 mmol/L [facility] Creatinine [Mass/Vol] 3.67 mg/dL High 0.72 - 1.25 mg/dL [facility] GFR/1.73 sq M.predicted (S/P/Bld) [Vol rate/Area] 18.2 mL/min Low - PINF [facility] Comment on above: Calculation based on the Chronic Kidney Disease Epidemiology Collaboration (CKD-EPI) equation refit without adjustment for race Glucose [Mass/Vol] 85 mg/dL 74 - 100 mg/dL [facility] Interpretation and review of laboratory results Abnormal [facility] Potassium [Moles/Vol] 4 mmol/L 3.5 - 5.1 mmol/L [facility] Comment on above: Plasma potassium macey ues may be up to 0.5 mmol/L lower than serum values. Protein [Mass/Vol] 7.4 g/dL 6.4 - 8.3 g/dL [facility] Sodium [Moles/Vol] 137 mmol/L 136 - 145 mmol/L [facility] Urea nitrogen [Mass/Vol] 24 mg/dL High 9 - 23 mg/d L [facility] Laboratory - Chemistry and C hemistry - challengeon 03-19-2025 Magnesium [Mass/Vol] 1.9 mg/dL 1.6 - 2 .6 mg/dL [facility] Laboratory - Coagulationon 0 03-19-2025 PT Coag (Bld) [Time] 17 s High 9.0 - 12.0 s [facility] MAGNESIUMon 03-19-2025 Magnesium [Mass/Vol] 1.9 mg/dL Normal 1.6-2.6 [facility] Comment on above: Result Comment: ORDE R COMMENTS:Higher values can be expected in females during menses. Performed By: #### L AB17, [id number] ####Phys Assistant: DOMENICA JARA ([phone])[facility] ([address] Magnesium [Mass/Vol]on 03-19 Interpretation and review of laboratory results Normal [facility] Higher values can be expected in females during menses. [facility] No Panel Informationon 03-19 Interpretation and review of laboratory results Abnormal [facility] Nursing Noteon 03-19-2025 Nursing Note Wound vac suction failing-pt requesting wound vac removed for now. Black foam dressing removed and wound packed with saline-soaked gauze covered with DSD Normal [facility] Nursing Note Pt adamantly refusing telemetry at this time, ripped off monitor and threw to the floor Normal [facility] PROTHROMBIN TIMEon INR Coag (PPP) [Relative time] 1.6 {INR} High 0.9-1.1 [facility] Comment on above: Performed By: #### L AB320, [id number] ####Phys Assistant: DOMENICA JARA ([phone])[address] PT Coag (PPP) [Time] 17.0 s High 9.0-12.0 [facility] Comment on above: Performed By: #### L AB320, [id number] ####Phys Assistant: DOMENICA JARA ([id number])[address] PT Coag (Bld) [Time]on 03-19 INR Coag (PPP) [Relative time] 1.6 {INR} High 0.9 - 1.1 [facility] Progress Noteon 03-19-2025 Progress [facility] Progress [facility] Progress Note Normal [facility] Progress Note Normal [facility] aPTT Coag (Bld) [Time]on aPTT Coag (PPP) [Time] 47.3 s High 20.0 - 30.5 s [facility] Interpretation and review of laboratory results Abnormal [facility] NOTE: The therapeutic time for Heparin anticoagulation, based on Xa activity inhibition, is an APTT of 46-80 seconds. [facility] aPTT Coag (PPP) [Time] 46.4 s High 20.0 - 30.5 s [facility] NOTE: The therapeutic time for Heparin anticoagulation, based on Xa activity inhibition, is an APTT of 46-80 seconds. [facility] APTTon 03-18-2025 aPTT Coag (Bld) [Time] 51.8 s High 20.0-30.5 [facility] Comment on above: Result Comment: ARPAN Kaplan COMMENTS:NOTE: The therapeutic time for Heparin anticoagulation, based on Xa activity inhibition, is an APTT of 46-80 seconds. Performed By: #### L AB325 ####Phys Assistant: DOMENICA JARA ([phone])[facility])[address] [place] [address] aPTT Coag (Bld) [Time] 47.6 s High 20.0-30.5 [facility] Comment on above: Result Comment: ARPAN Kaplan COMMENTS:NOTE: The therapeutic time for Heparin anticoagulation, based on Xa activity inhibition, is an APTT of 46-80 seconds. Performed By: #### L AB325 ####Phys Assistant: DOMENICA JARA ([phone])[address] aPTT Coag (Bld) [Time] 48.8 s High 20.0-30.5 [facility] Comment on above: Result Comment: ARPAN Kaplan COMMENTS:NOTE: The therapeutic time for Heparin anticoagulation, based on Xa activity inhibition, is an APTT of 46-80 seconds. Performed By: #### L AB325, [id number] ####Phys Assistant: DOMENICA [phone])[address] CBC (HEMOGRAM)on 03-18-2025 Erythrocyte distribution width (RBC) [Ratio] 20.6 % High 11.5-15.0 [facility] Comment on above: Performed By: #### L AB294 ####Phys Assistant: DOMENICA [id number])[address] Hematocrit (Bld) [Volume fraction] 30.4 % Low 40.0-52.0 [facility] Comment on above: Performed By: #### L AB294 ####Phys Assistant: DOMENICA [id number])[facility])[address] [place] [address] Hemoglobin (Bld) [Mass/Vol] 9.1 g/dL Low 13.0-18.0 [facility] Comment on above: Performed By: #### L AB294 ####Phys Assistant: DOMENICA JARA ([phone])[facility])[address] [place] [address] MCH (RBC) [Entitic mass] 30.0 pg Normal 26.0-34.0 [facility] Comment on above: Performed By: #### L AB294 ####Phys Assistant: DOMENICA JARA ([phone])[facility])[address] [place] [address] MCHC 29.9 % Low 30.5-36.0 [facility] Comment on above: Performed By: #### L AB294 ####Phys Assistant: DOMENICA JARA ([phone])[facility])[address] [place] [address] MCV (RBC) [Entitic vol] 100.3 fL High 77.0-99.0 [facility] Comment on above: Performed By: #### L AB294 ####Phys Assistant: DOMENICA JARA ([id number])[facility])[address] [place] [address] Platelet mean volume (Bld) [Entitic vol] 9.4 fL Normal 9.0-12.7 [facility] Comment on above: Performed By: #### L AB294 ####Phys Assistant: DOMENICA JARA ([phone])[facility])[address] [place] [address] [place] Platelets (Bld) [#/Vol] 333 10*3/uL Normal 140-440 [facility] Comment on above: Performed By: #### L AB294 ####Phys Assistant: DOMENICA JARA ([phone])[facility])[address] [place] [address] RBC (Bld) [#/Vol] 3.03 10*6/uL Low 4.40-5.90 [facility] Comment on above: Performed By: #### L AB294 ####Phys Assistant: DOMENICA JARA ([phone])[facility] ([facility])[address] [place] [address] WBC (Bld) [#/Vol] 7.6 10*3/uL Normal 3.6-10.7 [facility] Comment on above: Performed By: #### L AB294 ####Phys Assistant: DOMENICA JARA ([phone])[facility] ([facility])[address] [place] [address] CBC panel Auto (Bld)Ordered By: Haley Vitale on 03-18-2025 Erythrocyte distribution width (RBC) [Ratio] 20.6 % High 11.5 - 15.0 % [facility] Hematocrit (Bld) [Volume fraction] 30.4 % Low 40.0 - 52.0 % [facility] Hemoglobin (Bld) [Mass/Vol] 9.1 g/dL Low 13.0 - 18.0 g/dL [facility] Interpretation and review of laboratory results Abnormal [facility] MCH (RBC) [Entitic mass] 30 pg 26. 0 - 34.0 pg [facility] MCHC (RBC) [Mass/Vol] 29.9 % Low 30.5 - 36.0 % [facility] MCV (RBC) [Entitic vol] 100.3 fL High 77.0 - 99.0 fL [facility] Platelet mean volume (Bld) [Entitic vol] 9.4 fL 9.0 - 12.7 fL [facility] Platelets (Bld) [#/Vol] 333 10*3/uL 140 - 440 10*3/uL [facility] RBC (Bld) [#/Vol] 3.03 10*6/uL Low 4.40 - 5.9 0 10*6/uL [facility] WBC (Bld) [#/Vol] 7.6 10*3/uL 3.6 - 10.7 10*3/uL [facility] COMPREHENSIVE METABOLIC PANE Victor M 03-18-2025 Albumin [Mass/Vol] 2.0 g/dL Low 3.5-5.0 [facility] Comment on above: Performed By: #### L AB103, LAB17 ####Phys Assistant: DOMENICA JARA ([phone])[facility] ([facility])[address] [place] [address] ALP [Catalytic activity/Vol] 241 U/L High 40-150 [facility] Comment on above: Performed By: #### L AB103, LAB17 ####Phys Assistant: DOMENICA JARA ([phone])[facility] ([facility])[address] [place] [address] ALT [Catalytic activity/Vol] 11 U/L Normal <40 [facility] Comment on above: Performed By: #### L AB103, LAB17 ####Phys Assistant: DOMENICA JARA ([phone])[facility] ([facility])[address] [place] [address] Anion gap [Moles/Vol] 10 mmol/L Normal 3-13 [facility] Comment on above: Performed By: #### L AB103, LAB17 ####Phys Assistant: DOMENICA JARA ([phone])[facility] ([facility])[address] [place] [address] AST [Catalytic activity/Vol] 50 U/L High <34 [facility] Comment on above: Performed By: #### L AB103, LAB17 ####Phys Assistant: DOMENICA JARA ([phone])[facility] ([facility])[address] [place] [address] [place] Bilirubin [Mass/Vol] 0.8 mg/dL Normal <1.2 [facility] Comment on above: Performed By: #### L AB103, LAB17 ####Phys Assistant: DOMENICA JARA ([phone])[facility])[address] [place] [address] [place] Calcium [Mass/Vol] 9.0 mg/dL Normal 8.4-10.2 [facility] Comment on above: Performed By: #### L AB103, LAB17 ####Phys Assistant: DOMENICA JARA ([phone])[facility] [place] [address] Chloride [Moles/Vol] 100 mmol/L Normal 98-107 [facility] Comment on above: Performed By: #### L AB103, LAB17 ####Phys Assistant: DOMENICA JARA ([phone])[facility] [place] [address] CO2 [Moles/Vol] 29 mmol/L Normal 22-29 [facility] Comment on above: Performed By: #### L AB103, LAB17 ####Phys Assistant: DOMENICA JARA ([phone])[facility])[address] [place] [address] Creatinine [Mass/Vol] 2.64 mg/dL High 0.72-1.25 [facility] Comment on above: Performed By: #### L AB103, LAB17 ####Phys Assistant: DOMENICA JARA ([phone])[facility] ([facility])[address] [place] [address] GLOMERULAR FILTRATION RATE ML/MIN/1.73 SQ M.PREDICTED 27.0 mL/min/1.73m*2 Low >60.0 [facility] Comment on above: Result Comment: Calc ulation based on the Chronic Kidney Disease Epidemiology Collaboration (CKD-EPI) equation refit without adjustment for race Performed By: #### L AB103, LAB17 ####Phys Assistant: DOMENICA JARA ([phone])[facility] ([facility])[address] [place] [address] Glucose [Mass/Vol] 73 mg/dL Low 74-100 [facility] Comment on above: Performed By: #### L AB103, LAB17 ####Phys Assistant: DOMENICA JARA ([phone])[facility])[address] [place] [address] Potassium [Moles/Vol] 3.4 mmol/L Low 3.5-5.1 [facility] Comment on above: Result Comment: [facility] potassium values may be up to 0.5 mmol/L lower than serum values. Performed By: #### L AB103, LAB17 ####Phys Assistant: DOMENICA JARA ([phone])[facility] ([facility])[address] [place] [address] Protein [Mass/Vol] 7.3 g/dL Normal 6.4-8.3 [facility] Comment on above: Performed By: #### L AB103, LAB17 ####Phys Assistant: DOMENICA JARA ([phone])[facility] ([facility])[address] [place] [address] Sodium [Moles/Vol] 139 mmol/L Normal 136-145 [facility] Comment on above: Performed By: #### Tameka ISAAC103, LAB17 ####Phys Assistant: DOMENICA JARA ([phone])[facility] ([facility])[address] [place] [address] Urea nitrogen [Mass/Vol] 16 mg/dL Normal 9-23 [facility] Comment on above: Performed By: #### Tameka KWONG, LAB17 ####Phys Assistant: DOMENICA JARA ([phone])[facility] ([facility])[address] [place] [address] Comprehensive metabolic 1998 panelon 03-18-2025 Albumin [Mass/Vol] 2 g/dL Low 3.5 - 5.0 g/dL [facility] ALP [Catalytic activity/Vol] 241 U/L High 40 - 150 U/L [facility] ALT [Catalytic activity/Vol] 11 U/L NINF - 40 U/L [facility] Anion gap [Moles/Vol] 10 mmol/L 3 - 13 mmol/L [facility] AST [Catalytic activity/Vol] 50 U/L High NINF - 34 U/L [facility] Bilirubin [Mass/Vol] 0.8 mg/dL NINF - 1.2 mg/dL [facility] Calcium [Mass/Vol] 9 mg/dL 8.4 - 10. 2 mg/dL [facility] Chloride [Moles/Vol] 100 mmol/L 98 - 10 7 mmol/L [facility] CO2 [Moles/Vol] 29 mmol/L 22 - 29 mmol/L [facility] Creatinine [Mass/Vol] 2.64 mg/dL High 0.72 - 1.25 mg/dL [facility] GFR/1.73 sq M.predicted (S/P/Bld) [Vol rate/Area] 27 mL/min Low - PINF [facility] Comment on above: Calculation based on the Chronic Kidney Disease Epidemiology Collaboration (CKD-EPI) equation refit without adjustment for race Glucose [Mass/Vol] 73 mg/dL Low 74 - 100 mg/dL [facility] Interpretation and review of laboratory results Abnormal [facility] Potassium [Moles/Vol] 3.4 mmol/L Low 3.5 - 5.1 mmol/L [facility] Comment on above: Plasma potassium macey ues may be up to 0.5 mmol/L lower than serum values. Protein [Mass/Vol] 7.3 g/dL 6.4 - 8.3 g/dL [facility] Sodium [Moles/Vol] 139 mmol/L 136 - 145 mmol/L [facility] Urea nitrogen [Mass/Vol] 16 mg/dL 9 - 23 mg/d L [facility] Laboratory - Chemistry and C hemistry - challengeon 03-18-2025 Magnesium [Mass/Vol] 1.9 mg/dL 1.6 - 2 .6 mg/dL [facility] Laboratory - Coagulationon 0 03-18-2025 PT Coag (Bld) [Time] 15.2 s High 9.0 - 12.0 s [facility] MAGNESIUMon 03-18-2025 Magnesium [Mass/Vol] 1.9 mg/dL Normal 1.6-2.6 [facility] Comment on above: Result Comment: ARPAN Kaplan COMMENTS:Higher values can be expected in females during menses. Performed By: #### L AB103, LAB17 ####Phys Assistant: DOMENICA JARA ([id number])[facility] ([facility])[address] [place] [address] Magnesium [Mass/Vol]on 03-18 Interpretation and review of laboratory results Normal [facility] Higher values can be expected in females during menses. [facility] No Panel Informationon 03-18 [facility] Interpretation and review of laboratory results Abnormal [facility] PROTHROMBIN TIMEon INR Coag (PPP) [Relative time] 1.5 {INR} High 0.9-1.1 [facility] Comment on above: Result Comment: Vaughn mmended [...] Myocardial Infarction Performed By: #### Tameka AB325, [id number] ####Phys Assistant: DOMENICA JARA ([phone])[address] PT Coag (PPP) [Time] 15.2 s High 9.0-12.0 [facility] Comment on above: Performed By: #### Tameka AB325, [id number] ####Phys Assistant: DOMENICA JARA ([id number])[facility] [employer] PT Coag (Bld) [Time]on 03-18 INR Coag (PPP) [Relative time] 1.5 {INR} High 0.9 - 1.1 [facility] Comment on above: Recommended Anticoag [...] Infarction Progress Noteon 03-18-2025 Progress Note Normal [facility] Progress Note Normal [facility] Progress Note Normal [facility] aPTT Coag (Bld) [Time]on aPTT Coag (PPP) [Time] 51.8 s High 20.0 - 30.5 s [facility] Interpretation and review of laboratory results Abnormal [facility] NOTE: The therapeutic time for Heparin anticoagulation, based on Xa activity inhibition, is an APTT of 46-80 seconds. [facility] aPTT Coag (PPP) [Time] 47.6 s High 20.0 - 30.5 s [facility] Interpretation and review of laboratory results Abnormal [facility] NOTE: The therapeutic time for Heparin anticoagulation, based on Xa activity inhibition, is an APTT of 46-80 seconds. [facility] aPTT Coag (PPP) [Time] 48.8 s High 20.0 - 30.5 s [facility] NOTE: The therapeutic time for Heparin anticoagulation, based on Xa activity inhibition, is an APTT of 46-80 seconds. [facility] 30on 03-17-2025 30 Normal [facility] APTTon 03-17-2025 aPTT Coag (Bld) [Time] 44.1 s High 20.0-30.5 [facility] Comment on above: Result Comment: ARPAN Kaplan COMMENTS:NOTE: The therapeutic time for Heparin anticoagulation, based on Xa activity inhibition, is an APTT of 46-80 seconds. Performed By: #### L AB325 ####Phys Assistant: DOMENICA JARA ([phone])[address] aPTT Coag (Bld) [Time] 29.1 s Normal 20.0-30.5 [facility] Comment on above: Result Comment: ARPAN Kaplan COMMENTS:NOTE: The therapeutic time for Heparin anticoagulation, based on Xa activity inhibition, is an APTT of 46-80 seconds. Performed By: #### L AB325 ####Phys Assistant: DOMENICA JARA ([phone])[facility] ([facility])[address] [place] [address] CBC (HEMOGRAM)on 03-17-2025 Erythrocyte distribution width (RBC) [Ratio] 21.2 % High 11.5-15.0 [facility] Comment on above: Performed By: #### L AB294 ####Phys Assistant: DOMENICA JARA ([phone])[facility])[address] [place] [address] Hematocrit (Bld) [Volume fraction] 33.8 % Low 40.0-52.0 [facility] Comment on above: Performed By: #### L AB294 ####Phys Assistant: DOMENICA JARA ([phone])[facility])[address] [place] [address] Hemoglobin (Bld) [Mass/Vol] 10.0 g/dL Low 13.0-18.0 [facility] Comment on above: Performed By: #### L AB294 ####Phys Assistant: DOMENICA JARA ([phone])[facility] ([facility])[address] [place] [address] MCH (RBC) [Entitic mass] 30.2 pg Normal 26.0-34.0 [facility] Comment on above: Performed By: #### L AB294 ####Phys Assistant: DOMENICA JARA ([phone])[facility])[address] [place] [address] MCHC 29.6 % Low 30.5-36.0 [facility] Comment on above: Performed By: #### L AB294 ####Phys Assistant: DOMENICA JARA ([phone])[facility] ([facility])[address] [place] [address] MCV (RBC) [Entitic vol] 102.1 fL High 77.0-99.0 [facility] Comment on above: Performed By: #### L AB294 ####Phys Assistant: DOMENICA JARA ([phone])[facility])[address] [place] [address] Platelet mean volume (Bld) [Entitic vol] 9.2 fL Normal 9.0-12.7 [facility] Comment on above: Performed By: #### L AB294 ####Phys Assistant: DOMENICA JARA ([phone])[facility])[address] [place] [address] Platelets (Bld) [#/Vol] 407 10*3/uL Normal 140-440 [facility] Comment on above: Performed By: #### L AB294 ####Phys Assistant: DOMENICA JARA ([id number])[facility] ([facility])[address] [place] [address] RBC (Bld) [#/Vol] 3.31 10*6/uL Low 4.40-5.90 [facility] Comment on above: Performed By: #### L AB294 ####Phys Assistant: DOMENICA JRAA ([phone])[facility] ([facility])[address] [place] [address] WBC (Bld) [#/Vol] 6.7 10*3/uL Normal 3.6-10.7 [facility] Comment on above: Performed By: #### L AB294 ####Phys Assistant: DOMENICA JARA ([phone])[facility] ([facility])[address] [place] [address] CBC panel Auto (Bld)Ordered By: Giancarlo Lakhani on 03-17-2025 Erythrocyte distribution width (RBC) [Ratio] 21.2 % High 11.5 - 15.0 % [facility] Hematocrit (Bld) [Volume fraction] 33.8 % Low 40.0 - 52.0 % [facility] Hemoglobin (Bld) [Mass/Vol] 10 g/dL Low 13.0 - 18.0 g/dL [facility] Interpretation and review of laboratory results Abnormal [facility] MCH (RBC) [Entitic mass] 30.2 pg 26. 0 - 34.0 pg [facility] MCHC (RBC) [Mass/Vol] 29.6 % Low 30.5 - 36.0 % [facility] MCV (RBC) [Entitic vol] 102.1 fL High 77.0 - 99.0 fL [facility] Platelet mean volume (Bld) [Entitic vol] 9.2 fL 9.0 - 12.7 fL [facility] Platelets (Bld) [#/Vol] 407 10*3/uL 140 - 440 10*3/uL [facility] RBC (Bld) [#/Vol] 3.31 10*6/uL Low 4.40 - 5.9 0 10*6/uL [facility] WBC (Bld) [#/Vol] 6.7 10*3/uL 3.6 - 10.7 10*3/uL [facility] COMPREHENSIVE METABOLIC PANE Victor M 03-17-2025 Albumin [Mass/Vol] 2.2 g/dL Low 3.5-5.0 [facility] Comment on above: Performed By: #### L AB17, [id number], [id number] ####Phys Assistant: DOMENICA JARA ([phone])[facility] ([facility])[address] [place] [address] ALP [Catalytic activity/Vol] 223 U/L High 40-150 [facility] Comment on above: Performed By: #### L AB17, [id number], [id number] ####Phys Assistant: DOMENICA JARA ([id number])[facility])[address] [place] [address] ALT [Catalytic activity/Vol] 15 U/L Normal <40 [facility] Comment on above: Performed By: #### Tameka AB17, [id number], [id number] ####Phys Assistant: DOMENICA JARA ([phone])[facility] ([facility])[address] [place] [address] Anion gap [Moles/Vol] 12 mmol/L Normal 3-13 [facility] Comment on above: Performed By: #### L AB17, [id number], [id number] ####Phys Assistant: DOMENICA JARA ([phone])[facility] ([facility])[address] [place] [address] AST [Catalytic activity/Vol] 54 U/L High <34 [facility] Comment on above: Performed By: #### L AB17, [id number], [id number] ####Phys Assistant: DOMENICA JARA ([phone])[facility])[address] [place] [address] Bilirubin [Mass/Vol] 0.9 mg/dL Normal <1.2 [facility] Comment on above: Performed By: #### L AB17, [id number], [id number] ####Phys Assistant: DOMENICA JARA ([phone])[facility])[address] [place] [address] Calcium [Mass/Vol] 9.6 mg/dL Normal 8.4-10.2 [facility] Comment on above: Performed By: #### L AB17, [id number], [id number] ####Phys Assistant: DOMENICA JARA ([id number])[facility] ([facility])[address] [place] [address] Chloride [Moles/Vol] 104 mmol/L Normal 98-107 [facility] Comment on above: Performed By: #### L AB17, [id number], [id number] ####Phys Assistant: DOMENICA JARA ([phone])[facility] ([facility])[address] [place] [address] CO2 [Moles/Vol] 25 mmol/L Normal 22-29 [facility] Comment on above: Performed By: #### L AB17, [id number], [id number] ####Phys Assistant: DOMENICA JARA ([id number])[facility] ([facility])[address] [place] [address] Creatinine [Mass/Vol] 3.25 mg/dL High 0.72-1.25 [facility] Comment on above: Performed By: #### L AB17, [id number], [id number] ####Phys Assistant: DOMENICA JARA ([phone])[facility] ([facility])[address] [place] [address] GLOMERULAR FILTRATION RATE ML/MIN/1.73 SQ M.PREDICTED 21.1 mL/min/1.73m*2 Low >60.0 [facility] Comment on above: Result Comment: Calc ulation based on the Chronic Kidney Disease Epidemiology Collaboration (CKD-EPI) equation refit without adjustment for race Performed By: #### L AB17, [id number], [id number] ####Phys Assistant: DOMENICA JARA ([id number])[facility] ([facility])[address] [place] [address] Glucose [Mass/Vol] 87 mg/dL Normal 74-100 [facility] Comment on above: Performed By: #### L AB17, [id number], [id number] ####Phys Assistant: DOMENICA [phone])[facility] [place] [address] Potassium [Moles/Vol] 3.9 mmol/L Normal 3.5-5.1 [facility] Comment on above: Result Comment: [facility] potassium values may be up to 0.5 mmol/L lower than serum values. Performed By: #### L AB17, [id number], [id number] ####Phys Assistant: DOMENICA JARA ([phone])[facility] ([facility])[address] [place] [address] Protein [Mass/Vol] 8.0 g/dL Normal 6.4-8.3 [facility] Comment on above: Performed By: #### L AB17, [id number], [id number] ####Phys Assistant: DOMENICA JARA ([phone])[facility] ([facility])[address] [place] [address] Sodium [Moles/Vol] 141 mmol/L Normal 136-145 [facility] Comment on above: Performed By: #### L AB17, [id number], [id number] ####Phys Assistant: DOMENICA JARA ([phone])[facility] ([facility])[address] [place] [address] Urea nitrogen [Mass/Vol] 22 mg/dL Normal 9-23 [facility] Comment on above: Performed By: #### L AB17, [id number], [id number] ####Phys Assistant: DOMENICA JARA ([id number])[facility])[address] [place] [address] Comprehensive metabolic 1998 panelon 03-17-2025 Albumin [Mass/Vol] 2.2 g/dL Low 3.5 - 5.0 g/dL [facility] ALP [Catalytic activity/Vol] 223 U/L High 40 - 150 U/L [facility] ALT [Catalytic activity/Vol] 15 U/L NINF - 40 U/L [facility] Anion gap [Moles/Vol] 12 mmol/L 3 - 13 mmol/L [facility] AST [Catalytic activity/Vol] 54 U/L High NINF - 34 U/L [facility] Bilirubin [Mass/Vol] 0.9 mg/dL NINF - 1.2 mg/dL [facility] Calcium [Mass/Vol] 9.6 mg/dL 8.4 - 10. 2 mg/dL [facility] Chloride [Moles/Vol] 104 mmol/L 98 - 10 7 mmol/L [facility] CO2 [Moles/Vol] 25 mmol/L 22 - 29 mmol/L [facility] Creatinine [Mass/Vol] 3.25 mg/dL High 0.72 - 1.25 mg/dL [facility] GFR/1.73 sq M.predicted (S/P/Bld) [Vol rate/Area] 21.1 mL/min Low - PINF [facility] Comment on above: Calculation based on the Chronic Kidney Disease Epidemiology Collaboration (CKD-EPI) equation refit without adjustment for race Glucose [Mass/Vol] 87 mg/dL 74 - 100 mg/dL [facility] Interpretation and review of laboratory results Abnormal [facility] Potassium [Moles/Vol] 3.9 mmol/L 3.5 - 5.1 mmol/L [facility] Comment on above: Plasma potassium macey ues may be up to 0.5 mmol/L lower than serum values. Protein [Mass/Vol] 8 g/dL 6.4 - 8.3 g/dL [facility] Sodium [Moles/Vol] 141 mmol/L 136 - 145 mmol/L [facility] Urea nitrogen [Mass/Vol] 22 mg/dL 9 - 23 mg/d L [facility] Laboratory - Chemistry and C hemistry - challengeon 03-17-2025 Magnesium [Mass/Vol] 2.2 mg/dL 1.6 - 2 .6 mg/dL [facility] Laboratory - Coagulationon 0 03-17-2025 PT Coag (Bld) [Time] 16 s High 9.0 - 12.0 s [facility] MAGNESIUMon 03-17-2025 Magnesium [Mass/Vol] 2.2 mg/dL Normal 1.6-2.6 [facility] Comment on above: Result Comment: ARPAN Kaplan COMMENTS:Higher values can be expected in females during menses. Performed By: #### L AB17, [id number], [id number] ####Phys Assistant: DOMENICA JARA ([phone])[facility] ([address] Magnesium [Mass/Vol]on 03-17 Interpretation and review of laboratory results Normal [facility] Higher values can be expected in females during menses. [facility] NT PRO BNPon 03-17-2025 NT PRO BNP >57203 High <125 [facility] Comment on above: Performed By: #### L AB17, [id number], [id number] ####Phys Assistant: DOMENICA JRAA ([phone])[facility])[address] [place] [address] [place] Natriuretic peptide B [Mass/ Vol]on 03-17-2025 Interpretation and review of laboratory results Abnormal [facility] Natriuretic peptide B (Bld) [Mass/Vol] pg/mL High NINF - 125 pg/mL [facility] No Panel Informationon 03-17 [facility] Nursing Noteon 03-17-2025 Nursing Note Normal [facility] PROTHROMBIN TIMEon INR Coag (PPP) [Relative time] 1.5 {INR} High 0.9-1.1 [facility] Comment on above: Result Comment: Vaughn mmended [...] Myocardial Infarction Performed By: #### L AB320 ####Phys Assistant: DOMENICA JARA ([phone])[facility] ([facility])[address] [place] [address] [place] PT Coag (PPP) [Time] 16.0 s High 9.0-12.0 [facility] Comment on above: Performed By: #### L AB320 ####Phys Assistant: DOMENICA JARA ([phone])[facility] [facility] ([facility])[address] [place] [address] [place] PT Coag (Bld) [Time]on 03-17 INR Coag (PPP) [Relative time] 1.5 {INR} High 0.9 - 1.1 [facility] Comment on above: Recommended Anticoag [...] Interpretation and review of laboratory results Abnormal [facility] Progress Noteon 03-17-2025 Progress Note Normal [facility] Progress Note Normal [facility] Progress Note Normal [facility] aPTT Coag (Bld) [Time]on aPTT Coag (PPP) [Time] 44.1 s High 20.0 - 30.5 s [facility] Interpretation and review of laboratory results Abnormal [facility] NOTE: The therapeutic time for Heparin anticoagulation, based on Xa activity inhibition, is an APTT of 46-80 seconds. [facility] aPTT Coag (PPP) [Time] 29.1 s 20.0 - 30.5 s [facility] Interpretation and review of laboratory results Normal [facility] NOTE: The therapeutic time for Heparin anticoagulation, based on Xa activity inhibition, is an APTT of 46-80 seconds. [facility] 30on 03-16-2025 30 Normal [facility] 30 Normal [facility] CBC (HEMOGRAM)on 03-16-2025 Erythrocyte distribution width (RBC) [Ratio] 21.2 % High 11.5-15.0 [facility] Comment on above: Performed By: #### L [id number] ####Phys Assistant: DOMENICA JARA ([id number])[address] Hematocrit (Bld) [Volume fraction] 30.2 % Low 40.0-52.0 [facility] Comment on above: Performed By: #### L AB294 ####Phys Assistant: DOMENICA JARA ([phone])[facility] ([facility])[address] [place] [address] Hemoglobin (Bld) [Mass/Vol] 9.1 g/dL Low 13.0-18.0 [facility] Comment on above: Performed By: #### L AB294 ####Phys Assistant: DOMENICA JARA ([phone])[facility])[address] [place] [address] MCH (RBC) [Entitic mass] 30.1 pg Normal 26.0-34.0 [facility] Comment on above: Performed By: #### L AB294 ####Phys Assistant: DOMENICA JARA ([id number])[facility])[address] [place] [address] MCHC 30.1 % Low 30.5-36.0 [facility] Comment on above: Performed By: #### L AB294 ####Phys Assistant: DOMENICA JARA ([id number])[facility])[address] [place] [address] MCV (RBC) [Entitic vol] 100.0 fL High 77.0-99.0 S [facility] Comment on above: Performed By: #### L AB294 ####Phys Assistant: DOMENICA JARA ([id number])[facility])[address] [place] [address] Platelet mean volume (Bld) [Entitic vol] 9.0 fL Normal 9.0-12.7 [facility] Comment on above: Performed By: #### L AB294 ####Phys Assistant: DOMENICA JARA ([phone])[facility])[address] [place] [address] Platelets (Bld) [#/Vol] 372 10*3/uL Normal 140-440 [facility] Comment on above: Performed By: #### L AB294 ####Phys Assistant: DOMENICA JARA ([id number])[facility])[address] [place] [address] RBC (Bld) [#/Vol] 3.02 10*6/uL Low 4.40-5.90 [facility] Comment on above: Performed By: #### L AB294 ####Phys Assistant: DOMENICA JARA ([id number])[facility] [place] [address] WBC (Bld) [#/Vol] 7.0 10*3/uL Normal 3.6-10.7 [facility] Comment on above: Performed By: #### L AB294 ####Phys Assistant: DOMENICA JARA ([id number])[facility] [place] [address] CBC panel Auto (Bld)Ordered By: Callie Steele on 03-16-2025 Erythrocyte distribution width (RBC) [Ratio] 21.2 % High 11.5 - 15.0 % [facility] Hematocrit (Bld) [Volume fraction] 30.2 % Low 40.0 - 52.0 % [facility] Hemoglobin (Bld) [Mass/Vol] 9.1 g/dL Low 13.0 - 18.0 g/dL [facility] Interpretation and review of laboratory results Abnormal [facility] MCH (RBC) [Entitic mass] 30.1 pg 26. 0 - 34.0 pg [facility] MCHC (RBC) [Mass/Vol] 30.1 % Low 30.5 - 36.0 % [facility] MCV (RBC) [Entitic vol] 100 fL High 77.0 - 99.0 fL [facility] Platelet mean volume (Bld) [Entitic vol] 9 fL 9.0 - 12.7 fL [facility] Platelets (Bld) [#/Vol] 372 10*3/uL 140 - 440 10*3/uL [facility] RBC (Bld) [#/Vol] 3.02 10*6/uL Low 4.40 - 5.9 0 10*6/uL [facility] WBC (Bld) [#/Vol] 7 10*3/uL 3.6 - 10.7 10*3/uL [facility] COMPREHENSIVE METABOLIC PANE Victor M 03-16-2025 Albumin [Mass/Vol] 2.0 g/dL Low 3.5-5.0 [facility] Comment on above: Performed By: #### L AB17, [id number] ####Phys Assistant: DOMENICA JARA ([id number])[facility] ([facility])[address] [place] [address] ALP [Catalytic activity/Vol] 194 U/L High 40-150 [facility] Comment on above: Performed By: #### L AB17, [id number] ####Phys Assistant: DOMENICA JARA ([id number])[facility] ([facility])[address] [place] [address] ALT [Catalytic activity/Vol] 13 U/L Normal <40 [facility] Comment on above: Performed By: #### L AB17, [id number] ####Phys Assistant: DOMENICA JARA ([id number])[facility] ([facility])[address] [place] [address] Anion gap [Moles/Vol] 9 mmol/L Normal 3-13 [facility] Comment on above: Performed By: #### L AB17, [id number] ####Phys Assistant: DOMENICA JARA ([id number])[facility] ([facility])[address] [place] [address] AST [Catalytic activity/Vol] 47 U/L High <34 [facility] Comment on above: Performed By: #### L AB17, [id number] ####Phys Assistant: DOMENICA JARA ([phone])[facility] ([facility])[address] [place] [address] Bilirubin [Mass/Vol] 0.9 mg/dL Normal <1.2 [facility] Comment on above: Performed By: #### L AB17, [id number] ####Phys Assistant: DOMENICA JARA ([id number])[facility] ([facility])[address] [place] [address] Calcium [Mass/Vol] 9.1 mg/dL Normal 8.4-10.2 [facility] Comment on above: Performed By: #### L AB17, [id number] ####Phys Assistant: DOMENICA JARA ([id number])[facility] ([facility])[address] [place] [address] Chloride [Moles/Vol] 104 mmol/L Normal 98-107 [facility] Comment on above: Performed By: #### L AB17, [id number] ####Phys Assistant: DOMENICA JARA ([id number])[facility] ([facility])[address] [place] [address] CO2 [Moles/Vol] 26 mmol/L Normal 22-29 [facility] Comment on above: Performed By: #### L AB17, [id number] ####Phys Assistant: DOMENICA JARA ([id number])[facility] ([facility])[address] [place] [address] Creatinine [Mass/Vol] 2.35 mg/dL High 0.72-1.25 [facility] Comment on above: Performed By: #### L AB17, [id number] ####Phys Assistant: DOMENICA JARA ([id number])[facility] ([facility])[address] [place] [address] GLOMERULAR FILTRATION RATE ML/MIN/1.73 SQ M.PREDICTED 31.1 mL/min/1.73m*2 Low >60.0 [facility] Comment on above: Result Comment: Calc ulation based on the Chronic Kidney Disease Epidemiology Collaboration (CKD-EPI) equation refit without adjustment for race Performed By: #### L AB17, [id number] ####Phys Assistant: DOMENICA JARA ([id number])[facility] ([facility])[address] [place] [address] Glucose [Mass/Vol] 83 mg/dL Normal 74-100 [facility] Comment on above: Performed By: #### L AB17, [id number] ####Phys Assistant: DOMENICA JARA ([id number])[facility])[address] [place] [address] Potassium [Moles/Vol] 4.1 mmol/L Normal 3.5-5.1 [facility] Comment on above: Result Comment: [facility] potassium values may be up to 0.5 mmol/L lower than serum values. Performed By: #### L AB17, [id number] ####Phys Assistant: DOMENICA JARA ([phone])[facility] ([facility])[address] [place] [address] Protein [Mass/Vol] 7.3 g/dL Normal 6.4-8.3 [facility] Comment on above: Performed By: #### L AB17, [id number] ####Phys Assistant: DOMENICA JARA ([id number])[facility] ([facility])[address] [place] [address] Sodium [Moles/Vol] 139 mmol/L Normal 136-145 [facility] Comment on above: Performed By: #### L AB17, [id number] ####Phys Assistant: DOMENICA JARA ([id number])[facility])[address] [place] [address] Urea nitrogen [Mass/Vol] 18 mg/dL Normal 9-23 [facility] Comment on above: Performed By: #### L AB17, [id number] ####Phys Assistant: DOMENICA JARA ([id number])[facility] ([facility])[address] [place] [address] Comprehensive metabolic 1998 panelon 03-16-2025 Albumin [Mass/Vol] 2 g/dL Low 3.5 - 5.0 g/dL [facility] ALP [Catalytic activity/Vol] 194 U/L High 40 - 150 U/L [facility] ALT [Catalytic activity/Vol] 13 U/L NINF - 40 U/L [facility] Anion gap [Moles/Vol] 9 mmol/L 3 - 13 mmol/L [facility] AST [Catalytic activity/Vol] 47 U/L High NINF - 34 U/L [facility] Bilirubin [Mass/Vol] 0.9 mg/dL NINF - 1.2 mg/dL [facility] Calcium [Mass/Vol] 9.1 mg/dL 8.4 - 10. 2 mg/dL [facility] Chloride [Moles/Vol] 104 mmol/L 98 - 10 7 mmol/L [facility] CO2 [Moles/Vol] 26 mmol/L 22 - 29 mmol/L [facility] Creatinine [Mass/Vol] 2.35 mg/dL High 0.72 - 1.25 mg/dL [facility] GFR/1.73 sq M.predicted (S/P/Bld) [Vol rate/Area] 31.1 mL/min Low - PINF [facility] Comment on above: Calculation based on the Chronic Kidney Disease Epidemiology Collaboration (CKD-EPI) equation refit without adjustment for race Glucose [Mass/Vol] 83 mg/dL 74 - 100 mg/dL [facility] Interpretation and review of laboratory results Abnormal [facility] Potassium [Moles/Vol] 4.1 mmol/L 3.5 - 5.1 mmol/L [facility] Comment on above: Plasma potassium macey ues may be up to 0.5 mmol/L lower than serum values. Protein [Mass/Vol] 7.3 g/dL 6.4 - 8.3 g/dL [facility] Sodium [Moles/Vol] 139 mmol/L 136 - 145 mmol/L [facility] Urea nitrogen [Mass/Vol] 18 mg/dL 9 - 23 mg/d L [facility] Laboratory - Chemistry and C hemistry - challengeon 03-16-2025 Magnesium [Mass/Vol] 2 mg/dL 1.6 - 2 .6 mg/dL [facility] Laboratory - Coagulationon 0 03-16-2025 PT Coag (Bld) [Time] 17.3 s High 9.0 - 12.0 s [facility] MAGNESIUMon 03-16-2025 Magnesium [Mass/Vol] 2.0 mg/dL Normal 1.6-2.6 [facility] Comment on above: Result Comment: ARPAN Kaplan COMMENTS:Higher values can be expected in females during menses. Performed By: #### L AB17, [id number] ####Phys Assistant: DOMENICA JARA ([id number])[facility] ([facility] Magnesium [Mass/Vol]on 03-16 Interpretation and review of laboratory results Normal [facility] Higher values can be expected in females during menses. [facility] No Panel Informationon 03-16 [facility] PROTHROMBIN TIMEon INR Coag (PPP) [Relative time] 1.7 {INR} High 0.9-1.1 [facility] Comment on above: Result Comment: Vaughn mmended [...] Myocardial Infarction Performed By: #### L AB320 ####Phys Assistant: DOMENICA JARA ([id number])[facility] ([facility])[address] [place] [address] PT Coag (PPP) [Time] 17.3 s High 9.0-12.0 [facility] Comment on above: Performed By: #### Tameka AB320 ####Phys Assistant: DOMENICA JARA ([phone])[facility] ([facility])[address] [place] [address] PT Coag (Bld) [Time]on 03-16 INR Coag (PPP) [Relative time] 1.7 {INR} High 0.9 - 1.1 [facility] Comment on above: Recommended Anticoag [...] Interpretation and review of laboratory results Abnormal [facility] Progress Noteon 03-16-2025 Progress Note Normal [facility] Progress Note Normal [facility] Progress Note Normal [facility] Progress Note Normal [facility] Progress Note Normal [facility] 30on 03-15-2025 30 Normal [facility] 30 Normal [facility] [id number] 03-15-2025 [id number] Normal [facility] CBC (HEMOGRAM)on 03-15-2025 Erythrocyte distribution width (RBC) [Ratio] 21.3 % High 11.5-15.0 [facility] Comment on above: Performed By: #### L AB294 ####Phys Assistant: DOMENICA JARA ([id number])[address] Hematocrit (Bld) [Volume fraction] 30.1 % Low 40.0-52.0 [facility] Comment on above: Performed By: #### L AB294 ####Phys Assistant: DOMENICA JARA ([id number])[facility])[address] [place] [address] Hemoglobin (Bld) [Mass/Vol] 9.2 g/dL Low 13.0-18.0 [facility] Comment on above: Performed By: #### L AB294 ####Phys Assistant: DOMENICA JARA ([id number])[address] MCH (RBC) [Entitic mass] 30.5 pg Normal 26.0-34.0 [facility] Comment on above: Performed By: #### L AB294 ####Phys Assistant: DOMENICA JARA ([id number])[address] MCHC 30.6 % Normal 30.5-36.0 [facility] Comment on above: Performed By: #### L AB294 ####Phys Assistant: DOMENICA JARA ([phone])[facility])[address] [place] [address] MCV (RBC) [Entitic vol] 99.7 fL High 77.0-99.0 [facility] Comment on above: Performed By: #### L AB294 ####Phys Assistant: DOMENICA JARA ([id number])[address] Platelet mean volume (Bld) [Entitic vol] 9.0 fL Normal 9.0-12.7 [facility] Comment on above: Performed By: #### L AB294 ####Phys Assistant: DOMENICA JARA ([id number])[facility] ([facility])[address] [place] [address] Platelets (Bld) [#/Vol] 392 10*3/uL Normal 140-440 [facility] Comment on above: Performed By: #### L AB294 ####Phys Assistant: DOMENICA JARA ([id number])[facility] ([facility])[address] [place] [address] RBC (Bld) [#/Vol] 3.02 10*6/uL Low 4.40-5.90 [facility] Comment on above: Performed By: #### L AB294 ####Phys Assistant: DOMENICA JARA ([id number])[facility] ([facility])[address] [place] [address] WBC (Bld) [#/Vol] 6.7 10*3/uL Normal 3.6-10.7 [facility] Comment on above: Performed By: #### L AB294 ####Phys Assistant: DOMENICA JARA ([id number])[facility])[address] [place] [address] CBC panel Auto (Bld)on 03-15 Erythrocyte distribution width (RBC) [Ratio] 21.3 % High 11.5 - 15.0 % [facility] Hematocrit (Bld) [Volume fraction] 30.1 % Low 40.0 - 52.0 % [facility] Hemoglobin (Bld) [Mass/Vol] 9.2 g/dL Low 13.0 - 18.0 g/dL [facility] Interpretation and review of laboratory results Abnormal [facility] MCH (RBC) [Entitic mass] 30.5 pg 26. 0 - 34.0 pg [facility] MCHC (RBC) [Mass/Vol] 30.6 % 30.5 - 36.0 % [facility] MCV (RBC) [Entitic vol] 99.7 fL High 77.0 - 99.0 fL [facility] Platelet mean volume (Bld) [Entitic vol] 9 fL 9.0 - 12.7 fL [facility] Platelets (Bld) [#/Vol] 392 10*3/uL 140 - 440 10*3/uL [facility] RBC (Bld) [#/Vol] 3.02 10*6/uL Low 4.40 - 5.9 0 10*6/uL [facility] WBC (Bld) [#/Vol] 6.7 10*3/uL 3.6 - 10.7 10*3/uL [facility] COMPREHENSIVE METABOLIC PANE Victor M 03-15-2025 Albumin [Mass/Vol] 2.0 g/dL Low 3.5-5.0 [facility] Comment on above: Performed By: #### L 103, LAB17 ####Phys Assistant: DOMENICA JARA ([phone])[facility] ([facility])[address] [place] [address] ALP [Catalytic activity/Vol] 201 U/L High 40-150 [facility] Comment on above: Performed By: #### Tameka KWONG, LAB17 ####Phys Assistant: DOMENICA JARA ([id number])[facility] ([facility])[address] [place] [address] ALT [Catalytic activity/Vol] 14 U/L Normal <40 [facility] Comment on above: Performed By: #### Tameka KWONG, LAB17 ####Phys Assistant: DOMENICA JARA ([id number])[facility] ([facility])[address] [place] [address] Anion gap [Moles/Vol] 11 mmol/L Normal 3-13 [facility] Comment on above: Performed By: #### Tameka KWONG, LAB17 ####Phys Assistant: DOMENICA JARA ([id number])[facility] ([facility])[address] [place] [address] [place] AST [Catalytic activity/Vol] 49 U/L High <34 [facility] Comment on above: Performed By: #### L AB103, LAB17 ####Phys Assistant: DOMENICA JARA ([id number])[facility] ([facility])[address] [place] [address] Bilirubin [Mass/Vol] 0.8 mg/dL Normal <1.2 [facility] Comment on above: Performed By: #### L AB103, LAB17 ####Phys Assistant: DOMENICA JARA ([phone])[facility] [place] [address] Calcium [Mass/Vol] 9.2 mg/dL Normal 8.4-10.2 [facility] Comment on above: Performed By: #### L VARGHESE, LAB17 ####Phys Assistant: DOMENICA JARA ([phone])[facility] [place] [address] Chloride [Moles/Vol] 100 mmol/L Normal 98-107 [facility] Comment on above: Performed By: #### Tameka KWONG, LAB17 ####Phys Assistant: DOMENICA JARA ([id number])[facility] [place] [address] CO2 [Moles/Vol] 28 mmol/L Normal 22-29 [facility] Comment on above: Performed By: #### L 103, LAB17 ####Phys Assistant: DOMENICA JARA ([phone])[facility] [place] [address] Creatinine [Mass/Vol] 3.13 mg/dL High 0.72-1.25 [facility] Comment on above: Performed By: #### L VARGHESE, LAB17 ####Phys Assistant: DOMENICA JARA ([phone])[facility] ([facility])[address] [place] [address] [place] GLOMERULAR FILTRATION RATE ML/MIN/1.73 SQ M.PREDICTED 22.0 mL/min/1.73m*2 Low >60.0 [facility] Comment on above: Result Comment: Calc ulation based on the Chronic Kidney Disease Epidemiology Collaboration (CKD-EPI) equation refit without adjustment for race Performed By: #### L AB103, LAB17 ####Phys Assistant: DOMENICA JARA ([phone])[facility] [place] [address] Glucose [Mass/Vol] 91 mg/dL Normal 74-100 [facility] Comment on above: Performed By: #### L AB103, LAB17 ####Phys Assistant: DOMENICA JARA ([phone])[facility])[address] [place] [address] Potassium [Moles/Vol] 4.5 mmol/L Normal 3.5-5.1 [facility] Comment on above: Result Comment: [facility] potassium values may be up to 0.5 mmol/L lower than serum values. Performed By: #### L AB103, LAB17 ####Phys Assistant: DOMENICA JARA ([phone])[facility] ([facility])[address] [place] [address] Protein [Mass/Vol] 7.6 g/dL Normal 6.4-8.3 [facility] Comment on above: Performed By: #### L AB103, LAB17 ####Phys Assistant: DOMENICA JARA ([id number])[facility] ([facility])[address] [place] [address] Sodium [Moles/Vol] 139 mmol/L Normal 136-145 [facility] Comment on above: Performed By: #### L AB103, LAB17 ####Phys Assistant: DOMENICA JARA ([phone])[facility])[address] [place] [address] Urea nitrogen [Mass/Vol] 30 mg/dL High 9-23 [facility] Comment on above: Performed By: #### L AB103, LAB17 ####Phys Assistant: DOMENICA JARA ([phone])[facility])[address] [place] [address] Comprehensive metabolic 1998 panelOrdered By: Jenni Romano on 03-15-2025 Albumin [Mass/Vol] 2 g/dL Low 3.5 - 5.0 g/dL [facility] ALP [Catalytic activity/Vol] 201 U/L High 40 - 150 U/L [facility] ALT [Catalytic activity/Vol] 14 U/L NINF - 40 U/L [facility] Anion gap [Moles/Vol] 11 mmol/L 3 - 13 mmol/L [facility] AST [Catalytic activity/Vol] 49 U/L High NINF - 34 U/L [facility] Bilirubin [Mass/Vol] 0.8 mg/dL NINF - 1.2 mg/dL [facility] Calcium [Mass/Vol] 9.2 mg/dL 8.4 - 10. 2 mg/dL [facility] Chloride [Moles/Vol] 100 mmol/L 98 - 10 7 mmol/L [facility] CO2 [Moles/Vol] 28 mmol/L 22 - 29 mmol/L [facility] Creatinine [Mass/Vol] 3.13 mg/dL High 0.72 - 1.25 mg/dL [facility] GFR/1.73 sq M.predicted (S/P/Bld) [Vol rate/Area] 22 mL/min Low - PINF [facility] Comment on above: Calculation based on the Chronic Kidney Disease Epidemiology Collaboration (CKD-EPI) equation refit without adjustment for race Glucose [Mass/Vol] 91 mg/dL 74 - 100 mg/dL [facility] Interpretation and review of laboratory results Abnormal [facility] Potassium [Moles/Vol] 4.5 mmol/L 3.5 - 5.1 mmol/L [facility] Comment on above: Plasma potassium macey ues may be up to 0.5 mmol/L lower than serum values. Protein [Mass/Vol] 7.6 g/dL 6.4 - 8.3 g/dL [facility] Sodium [Moles/Vol] 139 mmol/L 136 - 145 mmol/L [facility] Urea nitrogen [Mass/Vol] 30 mg/dL High 9 - 23 mg/d L [facility] Consulton 03-15-2025 Consult Normal [facility] Consult Normal [facility] FREE T4on 03-15-2025 Free T4 [Mass/Vol] 0.89 ng/dL Normal 0.70-1.48 [facility] Comment on above: Performed By: #### L AB127 ####Phys Assistant: DOMENICA JARA ([phone])[facility] ([address] Free T4 [Mass/Vol]on 025 Free T4 Dialysis [Mass/Vol] 0.89 ng/dL 0.70 - 1.48 ng/dL [facility] [facility] Interpretation and review of laboratory results Normal [facility] Laboratory - Chemistry and C hemistry - challengeon 03-15-2025 Magnesium [Mass/Vol] 2 mg/dL 1.6 - 2 .6 mg/dL [facility] Laboratory - Coagulationon 0 03-15-2025 PT Coag (Bld) [Time] 17.9 s High 9.0 - 12.0 s [facility] MAGNESIUMon 03-15-2025 Magnesium [Mass/Vol] 2.0 mg/dL Normal 1.6-2.6 [facility] Comment on above: Result Comment: ARPAN Kaplan COMMENTS:Higher values can be expected in females during menses. Performed By: #### L AB103, LAB17 ####Phys Assistant: DOMENICA JARA ([phone])[facility])[address] [place] [address] Magnesium [Mass/Vol]on 03-15 Interpretation and review of laboratory results Normal [facility] Higher values can be expected in females during menses. [facility] Nursing Noteon 03-15-2025 Nursing Note Normal [facility] Nursing Note Normal [facility] PROTHROMBIN TIMEon INR Coag (PPP) [Relative time] 1.7 {INR} High 0.9-1.1 [facility] Comment on above: Result Comment: Vaughn mmended [...] Myocardial Infarction Performed By: #### L AB320 ####Phys Assistant: DOMENICA JARA ([id number])[facility] [place] [address] PT Coag (PPP) [Time] 17.9 s High 9.0-12.0 [facility] Comment on above: Performed By: #### L AB320 ####Phys Assistant: DOMENICA [id number])[facility] ([facility])[address] [place] [address] PT Coag (Bld) [Time]on 03-15 INR Coag (PPP) [Relative time] 1.7 {INR} High 0.9 - 1.1 [facility] Comment on above: Recommended Anticoag [...] Interpretation and review of laboratory results Abnormal [facility] Progress Noteon 03-15-[address] [facility] [employer]looks ([employer]queta[facility]me)t h System [facility] Progress Note Normal [facility] Note [facility] Progress Note Normal [facility] Prothrombin Time w/INRon INR Normal [facility] Comment on above: Order Comment: 412.2 Result Comment: [facility] Performed By: #### L 100.0100, L500.4050, L300.3900 #### [facility] [address] [place], [place], [address] PROTIME Normal 11.7-14.9 [facility] Comment on above: Order Comment: 412.2 Result Comment: [facility] Performed By: #### L 100.0100, L500.4050, L300.3900 #### [facility] [address] [place], [address] [place] Lower extremity arteryOrd ered By: Sulaiman Mullen on 03-15-2025 Right arm BP [address] [facility] Work Phone: [place] Lower extremity arteryon 03-15-2025 [...] CPACS 30on 03-14-2025 30 Normal [facility] [id number] 03-14-2025 [id number] Normal [facility] BASIC METABOLIC PANELon 02-25 Anion gap [Moles/Vol] 11 mmol/L Normal 3-13 [facility] Comment on above: Performed By: #### L AB15, [id number], LAB18 ####Phys Assistant: DOMENICA JARA ([id number])[facility])[address] [place] [address] Calcium [Mass/Vol] 10.1 mg/dL Normal 8.4-10.2 [facility] Comment on above: Performed By: #### L AB15, [id number], LAB18 ####Phys Assistant: DOMENICA JARA ([id number])[facility] [place] [address] Chloride [Moles/Vol] 102 mmol/L Normal 98-107 [facility] Comment on above: Performed By: #### L AB15, EMA116, LAB18 ####Phys Assistant: DOMENICA JARA ([phone])[facility] ([facility])[address] [place] [address] CO2 [Moles/Vol] 28 mmol/L Normal 22-29 [facility] Comment on above: Performed By: #### L AB15, [id number], LAB18 ####Phys Assistant: DOMENICA JARA ([id number])[facility])[address] [place] [address] Creatinine [Mass/Vol] 4.96 mg/dL High 0.72-1.25 [facility] Comment on above: Performed By: #### Tameka AB15, [id number], LAB18 ####Phys Assistant: DOMENICA JARA ([phone])[facility])[address] [place] [address] GLOMERULAR FILTRATION RATE ML/MIN/1.73 SQ M.PREDICTED 12.7 mL/min/1.73m*2 Low >60.0 [facility] Comment on above: Result Comment: Calc ulation based on the Chronic Kidney Disease Epidemiology Collaboration (CKD-EPI) equation refit without adjustment for race Performed By: #### Tameka AB15, [id number], LAB18 ####Phys Assistant: DOMENICA JARA ([id number])[facility] ([facility])[address] [place] [address] Glucose [Mass/Vol] 99 mg/dL Normal 74-100 [facility] Comment on above: Performed By: #### L AB15, [id number], LAB18 ####Phys Assistant: DOMENICA JARA ([id number])[facility])[address] [place] [address] [place] Potassium [Moles/Vol] 5.2 mmol/L High 3.5-5.1 [facility] Comment on above: Result Comment: [facility] potassium values may be up to 0.5 mmol/L lower than serum values. Performed By: #### L AB15, GDC813, LAB18 ####Phys Assistant: DOMENICA JARA ([id number])[facility] [place] [address] Sodium [Moles/Vol] 141 mmol/L Normal 136-145 [facility] Comment on above: Performed By: #### L AB15, [id number], LAB18 ####Phys Assistant: DOMENICA JARA ([id number])[facility] [place] [address] Urea nitrogen [Mass/Vol] 57 mg/dL High 9-23 [facility] Comment on above: Performed By: #### L AB15, [id number], LAB18 ####Phys Assistant: DOMENICA JARA ([id number])[facility] [place] [address] Basic metabolic 1998 panelOr dered By: Brandy Ross on 03-14-2025 Anion gap [Moles/Vol] 11 mmol/L 3 - 13 mmol/L [facility] Calcium [Mass/Vol] 10.1 mg/dL 8.4 - 10. 2 mg/dL [facility] Chloride [Moles/Vol] 102 mmol/L 98 - 10 7 mmol/L [facility] CO2 [Moles/Vol] 28 mmol/L 22 - 29 mmol/L [facility] Creatinine [Mass/Vol] 4.96 mg/dL High 0.72 - 1.25 mg/dL [facility] GFR/1.73 sq M.predicted (S/P/Bld) [Vol rate/Area] 12.7 mL/min Low - PINF [facility] Comment on above: Calculation based on the Chronic Kidney Disease Epidemiology Collaboration (CKD-EPI) equation refit without adjustment for race Glucose [Mass/Vol] 99 mg/dL 74 - 100 mg/dL [facility] Interpretation and review of laboratory results Abnormal [facility] Potassium [Moles/Vol] 5.2 mmol/L High 3.5 - 5.1 mmol/L [facility] Comment on above: Plasma potassium macey ues may be up to 0.5 mmol/L lower than serum values. Sodium [Moles/Vol] 141 mmol/L 136 - 145 mmol/L [facility] Urea nitrogen [Mass/Vol] 57 mg/dL High 9 - 23 mg/d L [facility] Consulton 03-14-2025 Consult Normal [facility] Consult Normal [facility] Consult Normal [facility] Consult Normal [facility] ECG 12-LEADon 03-14-2025 ECG 12-LEAD IMPRESSION: Atrial flutter IVCD, consider RBBB Probable lateral infarct, age indeterminate Anteroseptal infarct, 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 Electronically Signed On 03-14-2025 15:38:49 EDT by Ryan Magdaleno Normal [facility] LIPID PANELon 03-14-2025 Cholesterol [Mass/Vol] 159 mg/dL Normal <200 [facility] Comment on above: Performed By: #### L AB15, [id number], LAB18 ####Phys Assistant: DOMENICA JARA ([id number])[address] Cholesterol in HDL [Mass/Vol] 30 mg/dL Low >=60 [facility] Comment on above: Performed By: #### L AB15, VNF325, LAB18 ####Phys Assistant: DOMENICA JARA ([id number])[address] Cholesterol.total/Choles terol in HDL [Mass ratio] 5 {ratio} Normal [facility] Comment on above: Result Comment: Ref Range:< 3 Low Risk for CHD3-6 Mod Risk for CHD> 6 High Risk for CHD Performed By: #### L AB15, [id number], LAB18 ####Phys Assistant: DOMENICA JARA ([phone])[address] LOW DENSITY LIPOPROTEIN 109 mg/dL High 0-<100 [facility] Comment on above: Performed By: #### L AB15, [id number], LAB18 ####Phys Assistant: DOMENICA JARA ([phone])[address] NON-HDL CHOLESTEROL, CALCULATED 129 Normal <130 [facility] Comment on above: Performed By: #### L AB15, [id number], LAB18 ####Phys Assistant: DOMENICA JARA ([id number])[facility] ([facility])[address] Triglyceride [Mass/Vol] 98 mg/dL Normal <150 [facility] Comment on above: Performed By: #### L AB15, [id number], LAB18 ####Phys Assistant: DOMENICA JARA ([id number])[facility])[address] [place] [address] VERY LOW DENSITY LIPOPROTEIN, CALCULATED 20 mg/dL Normal <=30 [facility] Comment on above: Performed By: #### L AB15, [id number], LAB18 ####Phys Assistant: DOMENICA JARA ([id number])[facility] ([facility])[address] [place] [address] Laboratory - Chemistry and C hemistry - challengeon 03-14-2025 Magnesium [Mass/Vol] 2.2 mg/dL 1.6 - 2 .6 mg/dL [facility] Lipid 1996 panelon Cholesterol [Mass/Vol] 159 mg/dL NINF - 200 mg/dL [facility] Cholesterol in HDL [Mass/Vol] 30 mg/dL Low 60 - PINF mg/dL [facility] Cholesterol in LDL [Mass/Vol] 109 mg/dL High 0 - <100 [facility] Cholesterol.total/Choles terol in HDL [Mass ratio] 5 {ratio} [facility] Comment on above: Ref Range: < 3 Low Risk for CHD 3-6 Mod Risk for CHD > 6 High Risk for CHD Interpretation and review of laboratory results Abnormal [facility] NON-HDL CHOLESTEROL, CALCULATED 129 NINF - 130 [facility] Triglyceride [Mass/Vol] 98 mg/dL NINF - 150 mg/dL [facility] VERY LOW DENSITY LIPOPROTEIN, CALCULATED 20 mg/dL NINF - 30 mg/dL [facility] MAGNESIUMon 03-14-2025 Magnesium [Mass/Vol] 2.2 mg/dL Normal 1.6-2.6 [facility] Comment on above: Result Comment: ARPAN Kaplan COMMENTS:Higher values can be expected in females during menses. Performed By: #### L AB15, [id number], LAB18 ####Phys Assistant: DOMENICA JARA ([id number])[facility] ([facility])[address] [place], [place] [id number] [facility] Magnesium [Mass/Vol]on 03-14 Interpretation and review of laboratory results Normal [facility] Higher values can be expected in females during menses. [facility] No Panel InformationOrdered By: Ryan Magdaleno on 03-14-2025 P Zwolle 0 degrees [facility] Work Phone: TX Interval 0 ms [employer] Work Phone: QRS Zwolle 146 degrees [employer] Work Phone: QRSD Interval 127 ms [employer] Work Phone: QT Interval 397 ms [employer] Work Phone: QTC Interval 542 ms [employer] Work Phone: T Wave Zwolle -57 degrees [employer] Work Phone: [employer] Work Phone: No Panel Informationon 03-14 Atrial flutter IVCD, consider RBBB Probable lateral infarct, age indeterminate Anteroseptal infarct, 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 Electronically Signed On 03-14-2025 15:38:49 EDT by Ryan Yeboah MD - 03/14/2025 IMPRESSION: Atrial flutter IVCD, consider RBBB Probable lateral infarct, age indeterminate Anteroseptal infarct, 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 Electronically Signed On 03-14-2025 15:38:49 EDT by Ryan Magdaleno [facility] Nursing Noteon 03-14-2025 Nursing Note Normal [facility] Progress Noteon 03-14-2025 [facility] Progress Note Normal [facility] Vital signsOrdered By: Ryan Magdaleno on 03-14-2025 Heart rate 112 /min bpm [facility] Work Phone: 30on 03-13-2025 30 Normal [facility] BLOOD GAS, VENOUSon 03-13-20 25 AMOUNT OF OXYGEN Normal [facility] Comment on above: Result Comment: ORDE R COMMENTS:Assessment of oxygenation is best done with an arterial blood gas determination. Reference ranges for pO2, bicarbonate, and base excess are for mixed venous blood. Specimens drawn from a peripheral vein will often have higher values. Performed By: #### L AB79 ####Phys Assistant: FENG CONSTANTINO ([phone])[facility] MEM[facility]IALMatt [facility]PITALChandana ([facility])[address] Base excess Calc (BldV) [Moles/Vol] 2.2 mmol/L Normal -3.0-3.0 [facility] Comment on above: Performed By: #### L AB79 ####Phys Assistant: FENG CONSTANTINO ([phone])[facility] ([facility])[address] CO2 [Moles/Vol] 28.9 mmol/L Normal 23.0-30.0 [facility] Comment on above: Performed By: #### L AB79 ####Phys Assistant: FENG CONSTANTINO ([id number])[facility] ([facility])[address] HCO3 (Bld) [Moles/Vol] 27.5 mmol/L Normal 21.0-30.0 [facility] Comment on above: Performed By: #### L AB79 ####Phys Assistant: FENG CONSTANTINO ([phone])[facility] ([facility])[address] Hemoglobin (Bld) [Mass/Vol] 11.8 g/dL Low Screen only [facility] Comment on above: Performed By: #### L AB79 ####Phys Assistant: FENG CONSTANTINO ([id number])[facility] ([facility])[address] OXYGEN (MM HG) IN VENOUS BLOOD 33.5 mm Hg Normal [facility] Comment on above: Performed By: #### L AB79 ####Phys Assistant: FENG CONSTANTINO ([id number])[facility] ([facility])[address] [place] [address] [place] OXYGEN SATURATION (%) IN VENOUS BLOOD 57.2 % Normal [facility] Comment on above: Performed By: #### L AB79 ####Phys Assistant: FENG CONSTANTINO ([id number])[facility] [place] ([facility])[address] PCO2, JOHNATHAN 45.6 mm Hg Normal 38.0-56.0 [facility] Comment on above: Performed By: #### L AB79 ####Phys Assistant: FENG CONSTANTINO ([id number])[facility] [place] ([facility])[address] PH VENOUS 7.398 Normal 7.320-7.420 [facility] Comment on above: Performed By: #### L AB79 ####Phys Assistant: FENG CONSTANTINO ([id number])[facility] [place] ([facility])[address] SOURCE OF OXYGEN Nasal Cannula (LPM) Normal [facility] Comment on above: Performed By: #### L AB79 ####Phys Assistant: FENG CONSTANTINO ([id number])[facility] [place] ([facility])[address] CBC W Auto Differential pane l (Bld)Ordered By: Lakisha Paula on 03-13-2025 Basophils (Bld) [#/Vol] 0.1 10*3/uL 0.0 - 0.2 10*3/uL [facility] Basophils/100 WBC (Bld) 0.6 % 0.0 - 2.0 % [facility] Eosinophils (Bld) [#/Vol] 0.2 10*3/uL 0.0 - 0.5 10*3/uL [facility] Eosinophils/100 WBC (Bld) 2 % 0.0 - 6.0 % [facility] Erythrocyte distribution width (RBC) [Ratio] 21.2 % High 11.5 - 15.0 % [facility] Hematocrit (Bld) [Volume fraction] 28.4 % Low 40.0 - 52.0 % [facility] Hemoglobin (Bld) [Mass/Vol] 8.5 g/dL Low 13.0 - 18.0 g/dL [facility] Immature granulocytes (Bld) [#/Vol] 0 10*3/uL NINF - 0.1 10*3/uL [facility] Immature granulocytes/100 WBC (Bld) 0.5 % 0.0 - 2.0 % [facility] Interpretation and review of laboratory results Abnormal [facility] Lymphocytes (Bld) [#/Vol] 1.2 10*3/uL 1.0 - 4.3 10*3/uL [facility] Lymphocytes/100 WBC (Bld) 15.4 % 15.0 - 45.0 % [facility] MCH (RBC) [Entitic mass] 29.7 pg 26. 0 - 34.0 pg [facility] MCHC (RBC) [Mass/Vol] 29.9 % Low 30.5 - 36.0 % [facility] MCV (RBC) [Entitic vol] 99.3 fL High 77.0 - 99.0 fL [facility] Monocytes (Bld) [#/Vol] 1.4 10*3/uL High 0.0 - 0.9 10*3/uL [facility] Monocytes/100 WBC (Bld) 16.9 % High 5.0 - 13.0 % [facility] Neutrophils (Bld) [#/Vol] 5.2 10*3/uL 1.8 - 7.5 10*3/uL [facility] Neutrophils/100 WBC (Bld) 64.6 % 38.0 - 82.0 % [facility] Nucleated RBC/100 WBC (Bld) [Ratio] 0 % [facility] Platelet mean volume (Bld) [Entitic vol] 9.2 fL 9.0 - 12.7 fL [facility] Platelets (Bld) [#/Vol] 392 10*3/uL 140 - 440 10*3/uL [facility] RBC (Bld) [#/Vol] 2.86 10*6/uL Low 4.40 - 5.9 0 10*6/uL [facility] WBC (Bld) [#/Vol] 8 10*3/uL 3.6 - 10.7 10*3/uL [facility] CBC WITH AUTO DIFFERENTIALon 03-13-2025 Basophils (Bld) [#/Vol] 0.1 10*3/uL Normal 0.0-0.2 [facility] Comment on above: Performed By: #### L [id number] ####Phys Assistant: FENG CONSTANTINO ([id number])[facility] ([facility])[address] Basophils/100 WBC (Bld) 0.6 % Normal 0.0-2.0 [facility] Comment on above: Performed By: #### L [id number] ####Phys Assistant: FENG CONSTANTINO ([id number])[facility] ([facility])[address] Eosinophils (Bld) [#/Vol] 0.2 10*3/uL Normal 0.0-0.5 [facility] Comment on above: Performed By: #### L [id number] ####Phys Assistant: FENG CONSTANTINO ([id number])[facility] [place] ([facility])[address] Eosinophils/100 WBC (Bld) 2.0 % Normal 0.0-6.0 [facility] Comment on above: Performed By: #### L [id number] ####Phys Assistant: FENG CONSTANTINO ([id number])[facility] [place] ([facility])[address] Erythrocyte distribution width (RBC) [Ratio] 21.2 % High 11.5-15.0 [facility] Comment on above: Performed By: #### L [id number] ####Phys Assistant: FENG CONSTANTINO ([id number])[facility] [place] ([facility])[address] [place] [address] Hematocrit (Bld) [Volume fraction] 28.4 % Low 40.0-52.0 [facility] Comment on above: Performed By: #### L [id number] ####Phys Assistant: FENG CONSTANTINO ([id number])[facility] [place] ([facility])[address] [place] [address] Hemoglobin (Bld) [Mass/Vol] 8.5 g/dL Low 13.0-18.0 [facility] Comment on above: Performed By: #### L [id number] ####Phys Assistant: FENG CONSTANTINO ([phone])[facility] ([facility])[address] [place] [address] IMMATURE GRANS % 0.5 % Normal 0.0-2.0 [facility] Comment on above: Performed By: #### L [id number] ####Phys Assistant: FENG CONSTANTINO ([id number])[facility] ([facility] [place] [address] IMMATURE GRANS ABSOLUTE 0.0 10*3/uL Normal <0.1 [facility] Comment on above: Performed By: #### L [id number] ####Phys Assistant: FENG CONSTANTINO ([id number])[facility] ([facility])[address] [place] [address] Lymphocytes (Bld) [#/Vol] 1.2 10*3/uL Normal 1.0-4.3 [facility] Comment on above: Performed By: #### L [id number] ####Phys Assistant: FENG CONSTANTINO ([id number])[facility] ([facility])[address] [place] [address] Lymphocytes/100 WBC (Bld) 15.4 % Normal 15.0-45.0 [facility] Comment on above: Performed By: #### L [id number] ####Phys Assistant: FENG CONSTANTINO ([id number])[facility] ([facility])[address] [place] [address] MCH (RBC) [Entitic mass] 29.7 pg Normal 26.0-34.0 [facility] Comment on above: Performed By: #### L [id number] ####Phys Assistant: FENG CONSTANTINO ([phone])[facility] ([facility])[address] [place] [address] MCHC 29.9 % Low 30.5-36.0 [facility] Comment on above: Performed By: #### L [id number] ####Phys Assistant: FENG DOUGIE ([id number])[facility] ([facility])[address] MCV (RBC) [Entitic vol] 99.3 fL High 77.0-99.0 [facility] Comment on above: Performed By: #### L [id number] ####Phys Assistant: FENG DOUGIE ([id number])[facility] ([facility])[address] Monocytes (Bld) [#/Vol] 1.4 10*3/uL High 0.0-0.9 [facility] Comment on above: Performed By: #### L [id number] ####Phys Assistant: FENG CONSTANTINO ([id number])[facility] [place] ([facility])[address] Monocytes/100 WBC (Bld) 16.9 % High 5.0-13.0 [facility] Comment on above: Performed By: #### L [id number] ####Phys Assistant: FENG DOUGIE ([id number])[facility] ([facility])[address] NEUTROPHILS ABSOLUTE 5.2 10*3/uL Normal 1.8-7.5 [facility] Comment on above: Performed By: #### L [id number] ####Phys Assistant: FENG DOUGIE ([id number])[facility] [place] ([facility])[address] Neutrophils/100 WBC (Bld) 64.6 % Normal 38.0-82.0 [facility] Comment on above: Performed By: #### L [id number] ####Phys Assistant: FENG COLEGEORGE ([id number])[facility] ([facility])[address] NRBC 0.0 /100 WBCs Normal 0.0-2.0 [facility] Comment on above: Performed By: #### L [id number] ####Phys Assistant: FENG CONSTANTINO ([id number])[facility] MEMORIALMatt MYERSDAPHNIE ([facility])[address] Platelet mean volume (Bld) [Entitic vol] 9.2 fL Normal 9.0-12.7 [facility] Comment on above: Performed By: #### L [id number] ####Phys Assistant: FENG CONSTANTINO ([id number])[facility]A [facility] ([facility])[address] Platelets (Bld) [#/Vol] 392 10*3/uL Normal 140-440 [facility] Comment on above: Performed By: #### L [id number] ####Phys Assistant: FENG CONSTANTINO ([id number])[facility]IALMatt [facility] ([facility])[address] RBC (Bld) [#/Vol] 2.86 10*6/uL Low 4.40-5.90 [facility] Comment on above: Performed By: #### L [id number] ####Phys Assistant: FENG CONSTANTINO ([id number])[facility]IALMatt [facility] ([facility])[address] WBC (Bld) [#/Vol] 8.0 10*3/uL Normal 3.6-10.7 [facility] Comment on above: Performed By: #### L [id number] ####Phys Assistant: FENG CONSTANTINO ([id number])[facility]IALMatt [facility]BAL[facility]ITAL[facility] ([facility])[address] COMPREHENSIVE METABOLIC PANE Victor M 03-13-2025 Albumin [Mass/Vol] 1.5 g/dL Low 3.5-5.0 [facility] Comment on above: Performed By: #### L AB17 ####Phys Assistant: FENG CONSTANTINO ([id number])[facility] ([facility])[address] ALP [Catalytic activity/Vol] 122 U/L Normal 40-150 [facility] Comment on above: Performed By: #### L [id number] ####Phys Assistant: FENG CONSTANTINO ([id number])[facility] (SBHLAB)[address] ALT [Catalytic activity/Vol] 7 U/L Normal <40 [facility] Comment on above: Performed By: #### L [id number] ####Phys Assistant: FENG CONSTANTINO ([phone])[facility] ([facility] Anion gap [Moles/Vol] 6 mmol/L Normal 3-13 [facility] Comment on above: Performed By: #### L [id number] ####Phys Assistant: FENG CONSTANTINO ([phone])[facility] ([facility])[address] AST [Catalytic activity/Vol] 37 U/L High <34 [facility] Comment on above: Performed By: #### L [id number] ####Phys Assistant: FNEG CONSTANTINO ([phone])[facility] [place] (SB[facility])[address] Bilirubin [Mass/Vol] 0.5 mg/dL Normal <1.2 [facility] Comment on above: Performed By: #### L [id number] ####Phys Assistant: FENG CONSTANTINO ([phone])[facility] [place] (SB[facility])[address] Calcium [Mass/Vol] 7.3 mg/dL Low 8.4-10.2 [facility] Comment on above: Performed By: #### L [id number] ####Phys Assistant: FENG CONSTANTINO ([phone])[facility] [place] (SB[facility])[address] Chloride [Moles/Vol] 110 mmol/L High 98-107 [facility] Comment on above: Performed By: #### L [id number] ####Phys Assistant: FENG CONSTANTINO ([phone])[facility] [place] (SB[facility]AB)[address] CO2 [Moles/Vol] 25 mmol/L Normal 22-29 [facility] Comment on above: Performed By: #### L [id number] ####Phys Assistant: FENG CONSTANTINO ([phone])[facility] [place] (SB[facility]AB)[address] Creatinine [Mass/Vol] 3.32 mg/dL High 0.72-1.25 [facility] Comment on above: Performed By: #### L [id number] ####Phys Assistant: FENG CONSTANTINO ([phone])[facility] [place] (SB[facility]AB)[address] GLOMERULAR FILTRATION RATE ML/MIN/1.73 SQ M.PREDICTED 20.5 mL/min/1.73m*2 Low >60.0 [facility] Comment on above: Result Comment: Calc ulation based on the Chronic Kidney Disease Epidemiology Collaboration (CKD-EPI) equation refit without adjustment for race Performed By: #### L [id number] ####Phys Assistant: FENG CONSTANTINO ([id number])[facility] ([facility])[address] Glucose [Mass/Vol] 71 mg/dL Low 74-100 [facility] Comment on above: Performed By: #### L [id number] ####Phys Assistant: FENG CONSTANTINO ([phone])[facility] ([facility])[address] Potassium [Moles/Vol] 3.5 mmol/L Normal 3.5-5.1 [facility] Comment on above: Result Comment: [facility] potassium values may be up to 0.5 mmol/L lower than serum values. Performed By: #### L [id number] ####Phys Assistant: FENG CONSTANTINO ([phone])[facility] (SB[facility])[address] Protein [Mass/Vol] 5.5 g/dL Low 6.4-8.3 [facility] Comment on above: Performed By: #### L [id number] ####Phys Assistant: FENG CONSTANTINO ([phone])[facility] (HLAB)[address] Sodium [Moles/Vol] 141 mmol/L Normal 136-145 [facility] Comment on above: Performed By: #### L [id number] ####Phys Assistant: FENG CONSTANTINO ([phone])[facility] (SBHLAB)[address] Urea nitrogen [Mass/Vol] 41 mg/dL High 9-23 [facility] Comment on above: Performed By: #### L [id number] ####Phys Assistant: FENG CONSTANTINO ([phone])[facility] CHEST WO IV CONTRASTon CT CHEST WO IV CONTRAST Normal S [facility] CT Chest WO contraston 03-13 1. [...] Electronically Signed Date/Time: 03/13/2025 12:44 PM [facility] Patient Name: JUN SNYDER : [...] fracture or destructive osseous lesion is identified. [facility] Bettye Ribera MD - 03/13/2025 Patient Name: JUN SNYDER : 1965 [id number] Exam Date/Time: 03/13/2025 11:06 Procedure: CT CHEST [...] abdomen. Report Dictated on Electronically Signed By: eBttye Ribera MD Electronically Signed Date/Time: 03/13/2025 12:44 PM EDT [facility] Radiology Study observation (narrative) [facility] Comprehensive Metabolic Prof ilon 03-13-2025 Bilirubin [Mass/Vol] 0.62 mg/dL Normal 0.00-1.30 [facility] Comment on above: Order Comment: 413.2 Performed By: #### L 300.3900, L500.4050, L100.0100 #### [facility] [address] [place], [address] Comprehensive metabolic 1998 panelon 03-13-2025 Albumin [Mass/Vol] 1.5 g/dL Low 3.5 - 5.0 g/dL [facility] ALP [Catalytic activity/Vol] 122 U/L 40 - 150 U/L [facility] ALT [Catalytic activity/Vol] 7 U/L [facility] - 40 U/L [facility] Anion gap [Moles/Vol] 6 mmol/L 3 - 13 mmol/L [facility] AST [Catalytic activity/Vol] 37 U/L High [facility] - 34 U/L [facility] Bilirubin [Mass/Vol] 0.5 mg/dL NINF - 1.2 mg/dL [facility] Calcium [Mass/Vol] 7.3 mg/dL Low 8.4 - 10. 2 mg/dL [facility] Chloride [Moles/Vol] 110 mmol/L High 98 - 10 7 mmol/L [facility] CO2 [Moles/Vol] 25 mmol/L 22 - 29 mmol/L [facility] Creatinine [Mass/Vol] 3.32 mg/dL High 0.72 - 1.25 mg/dL [facility] GFR/1.73 sq M.predicted (S/P/Bld) [Vol rate/Area] 20.5 mL/min Low - PINF [facility] Comment on above: Calculation based on the Chronic Kidney Disease Epidemiology Collaboration (CKD-EPI) equation refit without adjustment for race Glucose [Mass/Vol] 71 mg/dL Low 74 - 100 mg/dL [facility] Interpretation and review of laboratory results Abnormal [facility] Potassium [Moles/Vol] 3.5 mmol/L 3.5 - 5.1 mmol/L [facility] Comment on above: Plasma potassium macey ues may be up to 0.5 mmol/L lower than serum values. Protein [Mass/Vol] 5.5 g/dL Low 6.4 - 8.3 g/dL [facility] Sodium [Moles/Vol] 141 mmol/L 136 - 145 mmol/L [facility] Urea nitrogen [Mass/Vol] 41 mg/dL High 9 - 23 mg/d L [facility] ECG 12-LEADon 03-13-2025 ECG 12-LEAD Normal [facility] ED Nursing Noteon 03-13-2025 ED Nursing Note When this RN came back from lunch Pt was already taken to [facility] by Consuelo Day. RN covering my lunch called report to RN at [facility]. Normal [facility] ED Nursing Note Called report to SWEETIE Linder at . Normal [facility] ED Nursing Note Consuelo Johnson at bedside to transport patient to [facility]. Normal [facility] ED Provider Noteon ED Provider Note Normal [facility] HIGH SENSITIVITY TROPONIN, S ERIAL BASELINEon 03-13-2025 TROPONIN HS SERIAL BASELINE 39 ng/L High <=35 [facility] Comment on above: Result Comment: In i ndividuals presenting with symptoms > 2h, a baseline troponin <= 5 ng/L suggests acutecardiac injury is unlikely and further serial testing is generally not indicated. Performed By: #### L [id number] ####Phys Assistant: FENG CONSTANTINO ([id number])[facility] ([facility])[address] [place] [address] HIGH SENSITIVITY TROPONIN, S ERIAL, SECOND TESTon 03-13-2025 2H TROPONIN HS (SERIAL 2ND TROPONIN) 44 ng/L High <=35 [facility] Comment on above: Result Comment: 2h t [...] 3rd serial troponin Performed By: #### L [id number], [id number], [id number] ####Phys Assistant: DOMENICA JARA ([id number])[facility] ([facility])[address] [place] [address] HIGH SENSITIVITY TROPONIN, S ERIAL, THIRD TESTon 03-13-2025 4H TROPONIN HS (SERIAL 3RD TROPONIN) 50 ng/L High <=35 [facility] Comment on above: Result Comment: [...] valuerequires further evaluation. Performed By: #### L [id number] ####Phys Assistant: DOMENICA JARA ([id number])[facility] ([facility])[address] [place] [address] Laboratory - Chemistry and C hemistry - challengeon 03-13-2025 TSH Qn 6.88 m[IU]/L High [facility] Laboratory - Chemistry and C hemistry - challengeOrdered By: Miya Ang on 03-13-2025 Base excess Calc (BldV) [Moles/Vol] 2.2 mmol/L -3.0 - 3.0 mmol/L [facility] CO2 (BldV) [Partial pressure] 45.6 mm[Hg] [facility] CO2 [Moles/Vol] 28.9 mmol/L 23.0 - 30.0 mmol/L [facility] HCO3 (Bld) [Moles/Vol] 27.5 mmol/L 21.0 - 30.0 mmol/L [facility] Oxygen (BldV) [Partial pressure] 33.5 mm[Hg] mm Hg [facility] pH (BldV) 7.398 [pH] 7.320 - 7.420 [facility] Laboratory - Coagulationon 0 03-13-2025 PT Coag (Bld) [Time] 17.7 s High 9.0 - 12.0 s [facility] - Hematology and Cell countsOrdered By: Miya Ang on 03-13-2025 Hemoglobin (Bld) [Mass/Vol] 11.8 g/dL Low 13.5 - 17.5 g/dl [facility] Laboratory - Microbiology an d Antimicrobial susceptibilityon 03-13-2025 FLUAV RNA EMMANUEL+probe Ql (Resp) Not detected Not Detected [facility] FLUBV RNA EMMANUEL+probe Ql (Resp) Not detected Not Detected [facility] RSV RNA EMMANUEL+probe Ql (Resp) Not detected Not Detected [facility] SARS-CoV-2 (COVID-19) RNA EMMANUEL+probe Ql (Resp) Not detected Not Detected [facility] alth SARS-CoV-2 (COVID-19) RNA EMMANUEL+probe Ql (Unsp spec) Methodology: real-time, RT-PCR The SARS-CoV-2, Flu A/B, and RSV Combo assay is intended for in vitro diagnostic use under the FDA Emergency Use Authorization (EUA). This test has not been FDA cleared or approved. In compliance with this authorization, please visit www.fda.gov/media/14 9945/download or www.fda.gov/media/14 2906/download to access the applicable information sheets. [facility] NT PRO BNPon 03-13-2025 NT PRO BNP >56112 High <125 [facility] Comment on above: Performed By: #### L [id number], [id number], [id number] ####Phys Assistant: DOMENICA JARA ([phone])[facility] ([address] Natriuretic peptide B [Mass/ Vol]on 03-13-2025 Interpretation and review of laboratory results Abnormal [facility] Natriuretic peptide B (Bld) [Mass/Vol] pg/mL High NINF - 125 pg/mL [facility] No Panel Informationon 03-13 4h Troponin HS (Serial 3rd Troponin) 50 ng/L High NINF - 35 ng/L [facility] Comment on above: 4h troponin (3rd tro ponin) samples collected between 1h 40 min and 2h and 20 min of the 2h troponin collection time can be utilized to interpret delta troponins as per [facility] algorithms. Samples collected outside this timeframe need to be interpreted clinically. Rising or falling troponin delta between 2 15 ng/L as compared to 2h troponin value requires further evaluation. Interpretation and review of laboratory results Abnormal [facility] 2h Troponin HS (Serial 2nd Troponin) 44 ng/L High NINF - 35 ng/L [facility] Comment on above: 2h troponin (2nd tro ponin) samples collected between 1h 40 min and 2h and 20 min of the baseline collection time can be utilized to interpret delta troponins as per [facility] algorithms. Samples collected outside this timeframe need to be interpreted clinically. Rising or falling troponin delta between 2 15 ng/L as compared to baseline value requires a 3rd serial troponin Interpretation and review of laboratory results Abnormal [facility] Interpretation and review of laboratory results Abnormal [facility] Troponin HS Serial Baseline 39 ng/L High NINF - 35 ng/L [facility] Comment on above: In individuals prese nting with symptoms > 2h, a baseline troponin <= 5 ng/L suggests acute cardiac injury is unlikely and further serial testing is generally not indicated. [facility] P Zwolle 0 degrees [facility] TX Interval 0 ms [facility] QRS Zwolle 66 degrees [facility] QRSD Interval [facility]val 372 ms [facility] QTC Interval 520 ms [facility] T Wave Zwolle 228 degrees [facility] Atrial flutter with predominant 2:1 [...] On 03-13-2025 08:47:27 EDT by Keiry Solares [facility] No Panel InformationOrdered By: Miya Ang on 03-13-2025 Amount Of Oxygen [facility] meredith Interpretation and review of laboratory results Abnormal [facility] Source Of Oxygen Nasal Cannula (LPM) [facility] Assessment of oxygenation is best done with an arterial blood gas determination. Reference ranges for pO2, bicarbonate, and base excess are for mixed venous blood. Specimens drawn from a peripheral vein will often have higher values. [facility] Nursing Noteon 03-13-2025 Nursing Note Removed wound vac that patient arrived to 5w from f pictures of all wound taken on rover and saved to chart NSWto DSD applied to sacral wound Normal [facility] PROTHROMBIN TIMEon INR Coag (PPP) [Relative time] 1.7 {INR} High 0.9-1.1 [facility] Comment on above: Result Comment: Vaughn mmended [...] Myocardial Infarction Performed By: #### L [id number] ####Phys Assistant: FENG CONSTANTINO ([id number])[facility] ([facility])[address] [place] [address] PT Coag (PPP) [Time] 17.7 s High 9.0-12.0 [facility] Comment on above: Performed By: #### L [id number] ####Phys Assistant: FENG CONSTANTINO ([id number])[facility] ([facility])[address] [place] [address] PT Coag (Bld) [Time]on 03-13 INR Coag (PPP) [Relative time] 1.7 {INR} High 0.9 - 1.1 [facility] Comment on above: Recommended Anticoag [...] Interpretation and review of laboratory results Abnormal [facility] SARS-COV-2, FLU A/B, AND RSV COMBOon 03-13-2025 SARS-CoV-2 (COVID-19) RNA EMMANUEL+probe Ql (Unsp spec) Normal [facility] Comment on above: Performed By: #### L [id number] ####Phys Assistant: FENG CONSTANTINO ([phone])[facility] (SBHLAB)[address] [place] [address] SARS-CoV-2, Flu A/B, and RSV Comboon 03-13-2025 Interpretation and review of laboratory results Normal [facility] THYROID STIMULATING HORMONEo n 03-13-2025 THYROID STIMULATING HORMONE 6.88 uIU/mL High 0.35-4.94 [facility] Comment on above: Performed By: #### L [id number], [id number], [id number] ####Phys Assistant: DOMENICA JARA ([phone])[facility] ([facility])[address] [place] [address] TSH Qnon 03-13-2025 Interpretation and review of laboratory results Abnormal [facility] Vital signsOrdered By: Delicia Ang on 03-13-2025 Oxygen saturation in Venous blood 57.2 % [facility] Vital signson 03-13-2025 Heart rate 117 /min bpm [facility] XR Chest Single viewon 03-13 1. Limited supine study. 2. Cardiomegaly with probable pulmonary venous congestion. 3. Hyperinflated lungs with chronic, ill-defined opacities in both lungs which are most likely areas of fibrosis. No definite lung consolidation. Report Dictated on Electronically Signed By: Bettye Ribera MD Electronically Signed Date/Time: 03/13/2025 9:18 AM [facility] Patient Name: JUN SNYDER : 1965 [...] Biapical pleural thickening is chronic. Bones: Unremarkable [facility] Bettye Ribera MD - 03/13/2025 Patient Name: JUN SNYDER : 1965 [id number] Exam Date/Time: 03/13/2025 09:06 Procedure: XR CHEST [...] Electronically Signed Date/Time: 03/13/2025 9:18 AM EDT [facility] Radiology Study observation (narrative) [facility] Chest Single viewOrdered By: Bettye Ribera on 03-13-2025 [facility] Work Phone: Absolute lymphocyte countOrd ered By: Jayesh Stubbs on 03-12-2025 Lymphocytes Auto (Unsp spec) [#/Vol] 1.12 10*3/uL 0.83-4.51 [facility] Absolute neutrophil countOrd ered By: Jayesh Stubbs on 03-12-2025 Neutrophils (Bld) [#/Vol] 4.3 10*3/uL 2.0-7.7 [facility] Anion gap in Serum or Plasma Ordered By: Jayesh Stubbs on 03-12-2025 Anion gap [Moles/Vol] 13 mmol/L 5-15 [facility] Automated lymphocyte count a s percentage of total leukocytesOrdered By: Jayesh Stubbs on 03-12-2025 Lymphocytes/100 WBC Auto (Unsp spec) 16.9 % Low 19-41 [facility] BUN/creatinine ratioOrdered By: Jayesh Stubbs on 03-12-2025 Urea nitrogen/Creatinine [Mass ratio] 11.8 mg/mg 10-20 [facility] Basophil percentageOrdered B y: Jayesh Stubbs on 03-12-2025 Basophils/100 WBC (Bld) 2.0 % High 0-1 [facility] Bilirubin, totalOrdered By: Jayesh Stubbs on 03-12-2025 Bilirubin [Mass/Vol] 0.62 mg/dL 0.00-1.30 [facility] CBC W/Diff, Automatedon 02-25 Anisocytosis Ql (Bld) 1+ Normal [facility] Comment on above: Order Comment: 413.2 Performed By: #### L 300.3900, L500.4050, L100.0100 #### [facility] [address] [place], [address] Carbon dioxide, total [Moles /volume] in Central venous bloodOrdered By: Jayesh Stubbs on 03-12-2025 CO2 [Moles/Vol] 27.8 mmol/L 21.0-32.0 [facility] Chloride assayOrdered By: George Dorado on 03-12-2025 Chloride [Moles/Vol] 98 mmol/L 98-108 [facility] Eosinophil percentageOrdered By: Jayesh Stubbs on [...] Stubbs on 03-12-2025 Anisocytosis Ql (Bld) 1+ [facility] MCV (mean corpuscular volume ) determinationOrdered By: Jayesh Stubbs on 03-12-2025 MCV (RBC) [Entitic vol] 100.3 fL High 80-94 [facility] Mean corpuscular hemoglobin (MCH) determinationOrdered By: Jayesh Stubbs on 03-12-2025 MCH (RBC) [Entitic mass] 30.4 pg 27.0-32.0 [facility] Mean corpuscular hemoglobin concentration (MCHC) determinationOrdered By: Jayesh Stubbs on 03-12-2025 MCHC (RBC) [Mass/Vol] 30.3 g/dL Low 32-36 [facility] Mean platelet volume determi nationOrdered By: Jayesh Stubbs on 03-12-2025 Platelet mean volume (Bld) [Entitic vol] 9.5 fL 6.2-12.0 [facility] Monocyte percentageOrdered B y: Jayesh Stubbs on 03-12-2025 Monocytes/100 WBC (Bld) 14.2 % High 0-10 [facility] Neutrophil percentageOrdered By: Jayesh Stubbs on 03-12-2025 [...] [facility] [address] [place], [address] PT Coag (PPP) [Time] 22.4 s High 11.7-14.9 [facility] Comment on above: Order Comment: 413.2 Performed By: #### L 300.3900, L500.4050, L100.0100 #### [facility] [address] [place], [address] Prothrombin timeOrdered By: Jayesh Stubbs on 03-12-2025 PT Coag (PPP) [Time] 22.4 s High 11.7-14.9 [facility] RBC Auto (Bld) [#/Vol]Ordere d By: Jayesh Stubbs on 03-12-2025 RBC (Bld) [#/Vol] 2.86 10*6/uL Low 4.6-6.2 [facility] Serum creatinine measurement (mass/volume)Ordered By: Jayesh Stubbs on 03-12-2025 Creatinine [Mass/Vol] 4.67 mg/dL High 0.70-1.20 [facility] Serum globulin measurementOr dered By: Jayesh Stubbs on 03-12-2025 Globulin (S) [Mass/Vol] 4.1 g/dL 2.2-4.2 [facility] Serum glucose measurement (m ass/volume)Ordered By: Jayesh Stubbs on 03-12-2025 Glucose [Mass/Vol] 102 mg/dL High 70-99 [facility] Serum or plasma alanine mayorga otransferase (ALT) measurementOrdered By: Jayesh Stubbs on 03-12-2025 ALT [Catalytic activity/Vol] 20 U/L <47 [facility] Serum or plasma albumin audrey urement (mass/volume)Ordered By: Jayesh Stubbs on 03-12-2025 Albumin [Mass/Vol] 3.0 g/dL Low 3.5-5.0 [facility] Serum or plasma albumin/glob ulin mass ratioOrdered By: Jayesh Stubbs on 03-12-2025 Albumin/Globulin [Mass ratio] 0.7 {ratio} Low 0.9-2.4 [facility] Serum or plasma alkaline jacob sphatase measurementOrdered By: Jayesh Stubbs on 03-12-2025 ALP [Catalytic activity/Vol] 171 U/L High 40-129 [facility] Serum or plasma calcium audrey urement (mass/volume)Ordered By: Jayesh Stubbs on 03-12-2025 Calcium [Mass/Vol] 9.9 mg/dL 7.6-11.0 [facility] Serum or plasma urea nitroge n measurement (mass/volume)Ordered By: Jayesh Stubbs on 03-12-2025 Urea nitrogen [Mass/Vol] 55 mg/dL High 4-19 [facility] Sodium levelOrdered By: George Stubbs on 03-12-2025 Sodium [Moles/Vol] 139 mmol/L 133-145 [facility] Total proteinOrdered By: Sonia Stubbs on 03-12-2025 Protein [Mass/Vol] 7.1 g/dL 5.9-8.4 [facility] White blood cell (WBC) count Ordered By: Jayesh Stubbs on 03-12-2025 WBC (Bld) [#/Vol] 6.6 10*3/uL 4.4-11.0 [facility] Potassiumon 03-09-2025 Potassium [Moles/Vol] 4.1 mmol/L Normal 3.3-5.1 [facility] Comment on above: Order Comment: 412.2 Performed By: #### L 100.0100, L500.4050, L300.3900 #### [facility] [address] [place], [address] Potassium measurement (mass/ volume)Ordered By: Jayesh Stubbs [...] Wednesday. I will try again next wednesday [facility] Progress Noteon 03-08-2025 Progress Note [facility] 36on 03-06-2025 36 Pt DC [facility] [id number] 03-05-2025 [id number] [facility] [id number] Auth is now pending with [facility] for [facility]. Auth ID: [id number] . The insurance needs PT and OT notes- as PT note yesterday incomplete , they are both requested . [facility] [id number] [facility] [id number] Discharge med list transmitted to [facility] via [employer]port per TCC request. [facility] [id number] [facility] [id number] [facility] APTTon 03-05-2025 aPTT Coag (Bld) [Time] 37.6 s High 20.0-30.5 [facility] Comment on above: Result Comment: ARPAN Kaplan COMMENTS:NOTE: The therapeutic time for Heparin anticoagulation, based on Xa activity inhibition, is an APTT of 46-80 seconds. Performed By: #### L [id number], [id number] ####Phys Assistant: DOMENICA JARA ([phone])[facility] [place] [address] BASIC METABOLIC PANELon 060 Anion gap [Moles/Vol] 8 mmol/L Normal 3-13 [facility] Comment on above: Performed By: #### L AB15 ####Phys Assistant: DOMENICA JARA ([phone])[facility] ([facility])[address] [place] [address] Calcium [Mass/Vol] 9.7 mg/dL Normal 8.4-10.2 [facility] Comment on above: Performed By: #### L AB15 ####Phys Assistant: DOMENICA JARA ([phone])[facility] ([facility])[address] [place] [address] Chloride [Moles/Vol] 102 mmol/L Normal 98-107 [facility] Comment on above: Performed By: #### L AB15 ####Phys Assistant: DOMENICA JARA ([phone])[facility] ([facility])[address] [place] [address] [place] CO2 [Moles/Vol] 26 mmol/L Normal 22-29 [facility] Comment on above: Performed By: #### L AB15 ####Phys Assistant: DOMENICA JARA ([phone])[facility] ([facility])[address] [place] [address] Creatinine [Mass/Vol] 3.10 mg/dL High 0.72-1.25 [facility] Comment on above: Performed By: #### L AB15 ####Phys Assistant: DOMENICA JARA ([phone])[facility] ([facility])[address] [place] [address] [place] GLOMERULAR FILTRATION RATE ML/MIN/1.73 SQ M.PREDICTED 22.3 mL/min/1.73m*2 Low >60.0 [facility] Comment on above: Result Comment: Calc ulation based on the Chronic Kidney Disease Epidemiology Collaboration (CKD-EPI) equation refit without adjustment for race Performed By: #### L AB15 ####Phys Assistant: DOMENICA JARA ([phone])[facility] ([facility])[address] [place] [address] [place] Glucose [Mass/Vol] 68 mg/dL Low 74-100 [facility] Comment on above: Performed By: #### L AB15 ####Phys Assistant: DOMENICA JARA ([phone])[facility] ([facility])[address] [place] [address] [place] Potassium [Moles/Vol] 5.9 mmol/L High 3.5-5.1 [facility] Comment on above: Result Comment: [facility] potassium values may be up to 0.5 mmol/L lower than serum values. Performed By: #### L AB15 ####Phys Assistant: DOMENICA JARA ([phone])[facility] ([facility])[address] [place] [address] Sodium [Moles/Vol] 136 mmol/L Normal 136-145 [facility] Comment on above: Performed By: #### L AB15 ####Phys Assistant: DOMENICA JARA ([id number])[facility] ([facility])[address] [place] [address] Urea nitrogen [Mass/Vol] 27 mg/dL High 9-23 [facility] Comment on above: Performed By: #### L AB15 ####Phys Assistant: DOMENICA JARA ([phone])[facility] ([facility])[address] [place] [address] Anion gap [Moles/Vol] 9 mmol/L Normal 3-13 [facility] Comment on above: Performed By: #### L AB15 ####Phys Assistant: DOMENICA JARA ([phone])[facility] ([facility])[address] [place] [address] Calcium [Mass/Vol] 9.7 mg/dL Normal 8.4-10.2 [facility] Comment on above: Performed By: #### L AB15 ####Phys Assistant: DOMENICA JARA ([phone])[facility] ([facility])[address] [place] [address] [place] Chloride [Moles/Vol] 102 mmol/L Normal 98-107 [facility] Comment on above: Performed By: #### L AB15 ####Phys Assistant: DOMENICA JARA ([phone])[facility] ([facility])[address] [place] [address] [place] CO2 [Moles/Vol] 25 mmol/L Normal 22-29 [facility] Comment on above: Performed By: #### L AB15 ####Phys Assistant: DOMENICA JARA ([phone])[facility] ([facility])[address] [place] [address] Creatinine [Mass/Vol] 3.03 mg/dL High 0.72-1.25 [facility] Comment on above: Performed By: #### L AB15 ####Phys Assistant: DOMENICA JARA ([phone])[facility])[address] [place] [address] [place] GLOMERULAR FILTRATION RATE ML/MIN/1.73 SQ M.PREDICTED 22.9 mL/min/1.73m*2 Low >60.0 [facility] Comment on above: Result Comment: Calc ulation based on the Chronic Kidney Disease Epidemiology Collaboration (CKD-EPI) equation refit without adjustment for race Performed By: #### L AB15 ####Phys Assistant: DOMENICA JARA ([phone])[facility])[address] [place] [address] Glucose [Mass/Vol] 77 mg/dL Normal 74-100 [facility] Comment on above: Performed By: #### L AB15 ####Phys Assistant: DOMENICA JARA ([phone])[address] Potassium [Moles/Vol] 6.6 mmol/L Critically high 3.5-5.1 [facility] Comment on above: Result Comment: [facility] potassium values may be up to 0.5 mmol/L lower than serum values. Performed By: #### L AB15 ####Phys Assistant: DOMENICA JARA ([phone])[facility])[address] [place] [address] [place] Sodium [Moles/Vol] 136 mmol/L Normal 136-145 [facility] Comment on above: Performed By: #### L AB15 ####Phys Assistant: DOMENICA JARA ([phone])[place] [address] [place] Urea nitrogen [Mass/Vol] 26 mg/dL High 9-23 [facility] Comment on above: Performed By: #### L AB15 ####Phys Assistant: DOMENICA [phone])[facility] ([facility])[address] [place] [address] Basic metabolic 1998 panelon 03-05-2025 Anion gap [Moles/Vol] 8 mmol/L 3 - 13 mmol/L [facility] Calcium [Mass/Vol] 9.7 mg/dL 8.4 - 10. 2 mg/dL [facility] Chloride [Moles/Vol] 102 mmol/L 98 - 10 7 mmol/L [facility] CO2 [Moles/Vol] 26 mmol/L 22 - 29 mmol/L [facility] Creatinine [Mass/Vol] 3.1 mg/dL High 0.72 - 1.25 mg/dL [facility] GFR/1.73 sq M.predicted (S/P/Bld) [Vol rate/Area] 22.3 mL/min Low - PINF [facility] Glucose [Mass/Vol] 68 mg/dL Low 74 - 100 mg/dL [facility] Interpretation and review of laboratory results Abnormal [facility] Potassium [Moles/Vol] 5.9 mmol/L High 3.5 - 5.1 mmol/L [facility] Sodium [Moles/Vol] 136 mmol/L 136 - 145 mmol/L [facility] Urea nitrogen [Mass/Vol] 27 mg/dL High 9 - 23 mg/d L [facility] Anion gap [Moles/Vol] 9 mmol/L 3 - 13 mmol/L [facility] Calcium [Mass/Vol] 9.7 mg/dL 8.4 - 10. 2 mg/dL [facility] Chloride [Moles/Vol] 102 mmol/L 98 - 10 7 mmol/L [facility] CO2 [Moles/Vol] 25 mmol/L 22 - 29 mmol/L [facility] Creatinine [Mass/Vol] 3.03 mg/dL High 0.72 - 1.25 mg/dL [facility] GFR/1.73 sq M.predicted (S/P/Bld) [Vol rate/Area] 22.9 mL/min Low - PINF [facility] Glucose [Mass/Vol] 77 mg/dL 74 - 100 mg/dL [facility] Interpretation and review of laboratory results Abnormal [facility] Potassium [Moles/Vol] 6.6 mmol/L Critically high 3.5 - 5.1 mmol/L [facility] Sodium [Moles/Vol] 136 mmol/L 136 - 145 mmol/L [facility] Urea nitrogen [Mass/Vol] 26 mg/dL High 9 - 23 mg/d L [facility] CBC (HEMOGRAM)on 03-05-2025 Erythrocyte distribution width (RBC) [Ratio] 21.6 % High 11.5-15.0 [facility] Comment on above: Performed By: #### L AB294 ####Phys Assistant: DOMENICA JARA ([phone])[facility])[address] [place] [address] Hematocrit (Bld) [Volume fraction] 25.7 % Low 40.0-52.0 [facility] Comment on above: Performed By: #### L AB294 ####Phys Assistant: DOMENICA JARA ([phone])[facility])[address] [place] [address] Hemoglobin (Bld) [Mass/Vol] 7.7 g/dL Low 13.0-18.0 [facility] Comment on above: Performed By: #### L AB294 ####Phys Assistant: DOMENICA JARA ([phone])[facility])[address] [place] [address] MCH (RBC) [Entitic mass] 29.7 pg Normal 26.0-34.0 [facility] Comment on above: Performed By: #### L AB294 ####Phys Assistant: DOMENICA JARA ([phone])[facility])[address] [place] [address] MCHC 30.0 % Low 30.5-36.0 [facility] Comment on above: Performed By: #### L AB294 ####Phys Assistant: DOMENICA JARA ([id number])[facility])[address] [place] [address] MCV (RBC) [Entitic vol] 99.2 fL High 77.0-99.0 [facility] Comment on above: Performed By: #### L AB294 ####Phys Assistant: DOMENICA JARA ([phone])[facility])[address] [place] [address] Platelet mean volume (Bld) [Entitic vol] 9.1 fL Normal 9.0-12.7 [facility] Comment on above: Performed By: #### L AB294 ####Phys Assistant: DOMENICA JARA ([phone])[facility])[address] [place] [address] Platelets (Bld) [#/Vol] 303 10*3/uL Normal 140-440 [facility] Comment on above: Performed By: #### L AB294 ####Phys Assistant: DOMENICA JARA ([phone])[facility])[address] [place] [address] RBC (Bld) [#/Vol] 2.59 10*6/uL Low 4.40-5.90 [facility] Comment on above: Performed By: #### L AB294 ####Phys Assistant: DOMENICA JARA ([phone])[facility] ([facility])[address] [place] [address] WBC (Bld) [#/Vol] 9.1 10*3/uL Normal 3.6-10.7 [facility] Comment on above: Performed By: #### L AB294 ####Phys Assistant: DOMENICA JARA ([id number])[facility])[address] [place] [address] CBC W/Diff, Automatedon 06-0 -2024 Absolute Neut Normal 2.0-7.7 [facility] Comment on above: Order Comment: 412.2 Result Comment: [facility] Performed By: #### L 300.3900 #### [facility] [address] [place], [address] (698) HCT Normal 40-54 [facility] Comment on above: Order Comment: 412.2 Result Comment: [facility] Performed By: #### L 300.3900 #### [facility] [address] [place], [address] (294) HGB Normal 13.0-16.5 [facility] Comment on above: Order Comment: 412.2 Result Comment: [facility] Performed By: #### L 300.3900 #### [facility] [address] [place], [address] MCH Normal 27.0-32.0 [facility] Comment on above: Order Comment: 412.2 Result Comment: [facility] Performed By: #### L 300.3900 #### [facility] [address] [place], [address] MCHC Normal 32-36 [facility] Comment on above: Order Comment: 412.2 Result Comment: [facility] Performed By: #### L 300.3900 #### [facility] [address] [place], [address] MCV Normal 80-94 [facility] Comment on above: Order Comment: 412.2 Result Comment: [facility] Performed By: #### L 300.3900 #### [facility] [address] [place], [address] NEUT% Normal 47-70 [facility] Comment on above: Order Comment: 412.2 Result Comment: [facility] Performed By: #### L 300.3900 #### [facility] [address] [place], [address] PLT Normal 150-450 [facility] Comment on above: Order Comment: 412.2 Result Comment: [facility] Performed By: #### L 300.3900 #### [facility] [address] [place], [address] RBC Normal 4.6-6.2 [facility] Comment on above: Order Comment: 412.2 Result Comment: [facility] Performed By: #### L 300.3900 #### [facility] [address] [place], [address] RDW CV Normal 11.6-14.6 [facility] Comment on above: Order Comment: 412.2 Result Comment: [facility] Performed By: #### L 300.3900 #### [facility] [address] [place], [address] RDW SD Normal 35.1-43.9 [facility] Comment on above: Order Comment: 412.2 Result Comment: [facility] Performed By: #### L 300.3900 #### [facility] [address] [place], [address] WBC Normal 4.4-11.0 [facility] Comment on above: Order Comment: 412.2 Result Comment: [facility] Performed By: #### L 300.3900 #### [facility] [address] [place], [address] CBC panel Auto (Bld)on 03-05 Erythrocyte distribution width (RBC) [Ratio] 21.6 % High 11.5 - 15.0 % [facility] Hematocrit (Bld) [Volume fraction] 25.7 % Low 40.0 - 52.0 % [facility] Hemoglobin (Bld) [Mass/Vol] 7.7 g/dL Low 13.0 - 18.0 g/dL [facility] Interpretation and review of laboratory results Abnormal [facility] MCH (RBC) [Entitic mass] 29.7 pg 26. 0 - 34.[address] [facility] MCHC (RBC) [Mass/Vol] 30 % Low 30.5 - 36.0 % [facility] MCV (RBC) [Entitic vol] 99.2 fL High 77.0 - 99.0 fL [facility] Platelet mean volume (Bld) [Entitic vol] 9.1 fL 9.0 - 12.[address] [facility] Platelets (Bld) [#/Vol] 303 10*3/uL 140 - 440 10*3/uL [facility] RBC (Bld) [#/Vol] 2.59 10*6/uL Low 4.40 - 5.9 0 10*6/uL [facility] WBC (Bld) [#/Vol] 9.1 10*3/uL 3.6 - 10.7 10*3/uL [facility] Comprehensive Metabolic Prof joe 03-05-2025 ALB Normal 3.5-5.0 [facility] Comment on above: Order Comment: 412.2 Result Comment: [facility] Performed By: #### L 300.3900 #### [facility] [address] [place], [address] ALK PHOS Normal 40-129 [facility] Comment on above: Order Comment: 412.2 Result Comment: [facility] Performed By: #### L 300.3900 #### [facility] [address] [place], [address] ALT Normal <=46 [facility] Comment on above: Order Comment: 412.2 Result Comment: [facility] Performed By: #### L 300.3900 #### [facility] [address] [place], [address] AST Normal <=37 [facility] Comment on above: Order Comment: 412.2 Result Comment: [facility] Performed By: #### L 300.3900 #### [facility] [address] [place], [address] BUN Normal 4-19 [facility] Comment on above: Order Comment: 412.2 Result Comment: [facility] Performed By: #### L 300.3900 #### [facility] [address] [place], [address] BUN/CRE Normal 10-20 [facility] Comment on above: Order Comment: 412.2 Result Comment: [facility] Performed By: #### L 300.3900 #### [facility] [address] [place], [address] Calcium Normal 7.6-11.0 [facility] Comment on above: Order Comment: 412.2 Result Comment: [facility] Performed By: #### L 300.3900 #### [facility] [address] [place], [address] CL Normal 98-108 [facility] Comment on above: Order Comment: 412.2 Result Comment: [facility] Performed By: #### L 300.3900 #### [facility] [address] [place], [address] CO2 Normal 21.0-32.0 [facility] Comment on above: Order Comment: 412.2 Result Comment: [facility] Performed By: #### L 300.3900 #### [facility] [address] [place], [address] CREAT,SERUM Normal 0.70-1.20 [facility] Comment on above: Order Comment: 412.2 Result Comment: [facility] Performed By: #### L 300.3900 #### [facility] [address] [place], [address] eGFR Normal >60 [facility] Comment on above: Order Comment: 412.2 Result Comment: [facility] Performed By: #### L 300.3900 #### [facility] [address] [place], [address] GAP Normal 5-15 [facility] Comment on above: Order Comment: 412.2 Result Comment: [facility] Performed By: #### L 300.3900 #### [facility] [address] [place], [address] GLU Normal 70-99 [facility] Comment on above: Order Comment: 412.2 Result Comment: [facility] Performed By: #### L 300.3900 #### [facility] [address] [place], [address] Potassium Normal 3.3-5.1 [facility] Comment on above: Order Comment: 412.2 Result Comment: [facility] Performed By: #### L 300.3900 #### [facility] [address] [place], [address] T BILI Normal 0.00-1.30 [facility] Comment on above: Order Comment: 412.2 Result Comment: [facility] Performed By: #### L 300.3900 #### [facility] [address] [place], [address] T PROT Normal 5.9-8.4 [facility] Comment on above: Order Comment: 412.2 Result Comment: [facility] Performed By: #### L 300.3900 #### [facility] [address] [place], [address] Comprehensive Metabolic Profil Normal 133-145 [facility] Comment on above: Order Comment: 412.2 Result Comment: [facility] Performed By: #### L 300.3900 #### [facility] [address] [place], [address] Laboratory - Chemistry and C hemistry - challengeon 03-05-2025 Glucose [Mass/Vol] 142 mg/dL High 70 - 100 mg/dL [facility] Glucose [Mass/Vol] 83 mg/dL 70 - 100 mg/dL [facility] Laboratory - Coagulationon 0 03-05-2025 PT Coag (Bld) [Time] 18.6 s High 9.0 - 12.0 s [facility] No Panel Informationon 03-05 Interpretation and review of laboratory results Abnormal [facility] Interpretation and review of laboratory results Normal [facility] Interpretation and review of laboratory results Abnormal [facility] PROTHROMBIN TIMEon INR Coag (PPP) [Relative time] 1.8 {INR} High 0.9-1.1 [facility] Comment on above: Result Comment: [...] Myocardial Infarction Performed By: #### L AB325, [id number] ####Phys Assistant: DOMENICA JARA ([phone])[facility] ([facility])[address] [place] [id number] [place] [address] PT Coag (PPP) [Time] 18.6 s High 9.0-12.0 [facility] Comment on above: Performed By: #### L AB325, [id number] ####Phys Assistant: DOMENICA JARA ([phone])[facility] ([facility])[address] [place] [address] [place] PT Coag (Bld) [Time]on 03-05 INR Coag (PPP) [Relative time] 1.8 {INR} High 0.9 - 1.1 [facility] Progress Noteon 03-05-2025 Progress Note Normal [facility] Progress Note Normal [facility] Progress [facility] Normal [facility] Progress Note Normal [facility] Progress Note Normal [facility] Progress Note Normal [facility] Prothrombin Time w/INRon INR Normal [facility] Comment on above: Order Comment: 412.2 Result Comment: [facility] Performed By: #### L 300.3900 #### [facility] [address] [place], [place], [address] PROTIME Normal 11.7-14.9 [facility] Comment on above: Order Comment: 412.2 Result Comment: [facility] Performed By: #### L 300.3900 #### [facility] [address] [place], [place], [address] aPTT Coag (Bld) [Time]on aPTT Coag (PPP) [Time] 37.6 s High 20.0 - 30.5 s [facility] 30on 03-04-2025 30 Normal [facility] [id number] 03-04-2025 [id number] Normal [facility] APTTon 03-04-2025 aPTT Coag (Bld) [Time] 52.2 s High 20.0-30.5 [facility] Comment on above: Result Comment: ARPAN [facility] COMMENTS:NOTE: The therapeutic time for Heparin anticoagulation, based on Xa activity inhibition, is an APTT of 46-80 seconds. Performed By: #### L AB325, [id number] ####Phys Assistant: DOMENICA JARA ([phone])[facility] ([facility])[address] [place] [address] BASIC METABOLIC PANELon Anion gap [Moles/Vol] 11 mmol/L Normal 3-13 [facility] Comment on above: Performed By: #### L AB15 ####Phys Assistant: DOMENICA JARA ([phone])[facility] ([facility])[address] [place] [address] Calcium [Mass/Vol] 9.4 mg/dL Normal 8.4-10.2 [facility] Comment on above: Performed By: #### L AB15 ####Phys Assistant: DOMENICA JARA ([phone])[facility] ([facility])[address] [place] [address] Chloride [Moles/Vol] 103 mmol/L Normal 98-107 [facility] Comment on above: Performed By: #### L AB15 ####Phys Assistant: DOMENIAC JARA ([phone])[facility] ([facility])[address] [place] [address] CO2 [Moles/Vol] 27 mmol/L Normal 22-29 [facility] Comment on above: Performed By: #### L AB15 ####Phys Assistant: DOMENICA JARA ([phone])[facility])[address] [place] [address] Creatinine [Mass/Vol] 2.41 mg/dL High 0.72-1.25 [facility] Comment on above: Performed By: #### L AB15 ####Phys Assistant: DOMENICA JARA ([phone])[facility])[address] [place] [address] GLOMERULAR FILTRATION RATE ML/MIN/1.73 SQ M.PREDICTED 30.2 mL/min/1.73m*2 Low >60.0 [facility] Comment on above: Result Comment: Calc ulation based on the Chronic Kidney Disease Epidemiology Collaboration (CKD-EPI) equation refit without adjustment for race Performed By: #### L AB15 ####Phys Assistant: DOMENICA JARA ([id number])[facility] ([facility])[address] [place] [address] Glucose [Mass/Vol] 99 mg/dL Normal 74-100 [facility] Comment on above: Performed By: #### L AB15 ####Phys Assistant: DOMENICA JARA ([phone])[facility])[address] [place] [address] Potassium [Moles/Vol] 5.1 mmol/L Normal 3.5-5.1 [facility] Comment on above: Result Comment: [facility] potassium values may be up to 0.5 mmol/L lower than serum values. Performed By: #### L AB15 ####Phys Assistant: DOMENICA JARA ([phone])[facility])[address] [place] [address] Sodium [Moles/Vol] 141 mmol/L Normal 136-145 [facility] Comment on above: Performed By: #### L AB15 ####Phys Assistant: DOMENICA JARA ([phone])[facility])[address] [place] [address] [place] Urea nitrogen [Mass/Vol] 18 mg/dL Normal 9-23 [facility] Comment on above: Performed By: #### L AB15 ####Phys Assistant: DOMENICA JARA ([phone])[facility])[address] [place] [address] Basic metabolic 1998 panelon 03-04-2025 Anion gap [Moles/Vol] 11 mmol/L 3 - 13 mmol/L [facility] [facility] Calcium [Mass/Vol] 9.4 mg/dL 8.4 - 10. 2 mg/dL [facility] Chloride [Moles/Vol] 103 mmol/L 98 - 10 7 mmol/L [facility] CO2 [Moles/Vol] 27 mmol/L 22 - 29 mmol/L [facility] Creatinine [Mass/Vol] 2.41 mg/dL High 0.72 - 1.25 mg/dL [facility] GFR/1.73 sq M.predicted (S/P/Bld) [Vol rate/Area] 30.2 mL/min Low - PINF [facility] Glucose [Mass/Vol] 99 mg/dL 74 - 100 mg/dL [facility] Interpretation and review of laboratory results Abnormal [facility] Potassium [Moles/Vol] 5.1 mmol/L 3.5 - 5.1 mmol/L [facility] Sodium [Moles/Vol] 141 mmol/L 136 - 145 mmol/L [facility] Urea nitrogen [Mass/Vol] 18 mg/dL 9 - 23 mg/d L [facility] CBC (HEMOGRAM)on 03-04-2025 Erythrocyte distribution width (RBC) [Ratio] 21.4 % High 11.5-15.0 [facility] Comment on above: Performed By: #### L [id number] ####Phys Assistant: DOMENICA JARA ([id number])[address] Hematocrit (Bld) [Volume fraction] 25.9 % Low 40.0-52.0 [facility] Comment on above: Performed By: #### L AB294 ####Phys Assistant: DOMENICA JARA ([id number])[address] Hemoglobin (Bld) [Mass/Vol] 7.7 g/dL Low 13.0-18.0 [facility] Comment on above: Performed By: #### L [id number] ####Phys Assistant: DOMENICA JARA ([id number])[facility])[address] [place] [address] MCH (RBC) [Entitic mass] 29.3 pg Normal 26.0-34.0 [facility] Comment on above: Performed By: #### L AB294 ####Phys Assistant: DOMENICA JARA ([id number])[facility] ([facility])[address] [place] [address] MCHC 29.7 % Low 30.5-36.0 [facility] Comment on above: Performed By: #### L AB294 ####Phys Assistant: DOMENICA JARA ([phone])[facility])[address] [place] [address] MCV (RBC) [Entitic vol] 98.5 fL Normal 77.0-99.0 [facility] Comment on above: Performed By: #### L [id number] ####Phys Assistant: DOMENICA JARA ([id number])[facility])[address] [place] [address] Platelet mean volume (Bld) [Entitic vol] 9.3 fL Normal 9.0-12.7 [facility] Comment on above: Performed By: #### L [id number] ####Phys Assistant: DOMENICA JARA ([id number])[facility] ([facility])[address] [place] [address] Platelets (Bld) [#/Vol] 324 10*3/uL Normal 140-440 [facility] Comment on above: Performed By: #### L [id number] ####Phys Assistant: DOMENICA JARA ([id number])[facility])[address] [place] [address] RBC (Bld) [#/Vol] 2.63 10*6/uL Low 4.40-5.90 [facility] Comment on above: Performed By: #### L [id number] ####Phys Assistant: DOMENICA JARA ([id number])[facility])[address] [place] [address] WBC (Bld) [#/Vol] 7.7 10*3/uL Normal 3.6-10.7 [facility] Comment on above: Performed By: #### L [id number] ####Phys Assistant: DOMENICA JARA ([id number])[facility] ([facility])[address] [place] [address] CBC panel Auto (Bld)on 03-04 Erythrocyte distribution width (RBC) [Ratio] 21.4 % High 11.5 - 15.0 % [facility] Hematocrit (Bld) [Volume fraction] 25.9 % Low 40.0 - 52.0 % [facility] Hemoglobin (Bld) [Mass/Vol] 7.7 g/dL Low 13.0 - 18.0 g/dL [facility] Interpretation and review of laboratory results Abnormal [facility] MCH (RBC) [Entitic mass] 29.3 pg 26. 0 - 34.0 pg [facility] MCHC (RBC) [Mass/Vol] 29.7 % Low 30.5 - 36.0 % [facility] MCV (RBC) [Entitic vol] 98.5 fL 77.0 - 99.0 fL [facility] Platelet mean volume (Bld) [Entitic vol] 9.3 fL 9.0 - 12.7 fL [facility] Platelets (Bld) [#/Vol] 324 10*3/uL 140 - 440 10*3/uL [facility] RBC (Bld) [#/Vol] 2.63 10*6/uL Low 4.40 - 5.9 0 10*6/uL [facility] WBC (Bld) [#/Vol] 7.7 10*3/uL 3.6 - 10.7 10*3/uL [facility] Laboratory - Coagulationon 0 03-04-2025 PT Coag (Bld) [Time] 16.6 s High 9.0 - 12.0 s [facility] PT Coag (Bld) [Time] 15.5 s High 9.0 - 12.0 s [facility] No Panel Informationon 03-04 Interpretation and review of laboratory results Abnormal [facility] PROTHROMBIN TIMEon INR Coag (PPP) [Relative time] 1.6 {INR} High 0.9-1.1 [facility] Comment on above: Result Comment: Vaughn mmended [...] Myocardial Infarction Performed By: #### Tameka AB320 ####Phys Assistant: DOMENICA JARA ([id number])[facility])[address] [place] [address] PT Coag (PPP) [Time] 16.6 s High 9.0-12.0 [facility] Comment on above: Performed By: #### L AB320 ####Phys Assistant: DOMENICA JARA ([id number])[facility])[address] [place] [address] INR Coag (PPP) [Relative time] 1.5 {INR} High 0.9-1.1 [facility] Comment on above: Result Comment: Vaughn mmended [...] Myocardial Infarction Performed By: #### Tameka AB325, [id number] ####Phys Assistant: DOMENICA JARA ([id number])[facility])[address] [place] [address] PT Coag (PPP) [Time] 15.5 s High 9.0-12.0 [facility] Comment on above: Performed By: #### Tameka AB325, [id number] ####Phys Assistant: DOMENICA JARA ([id number])[facility])[address] [place] [address] PT Coag (Bld) [Time]on 03-04 INR Coag (PPP) [Relative time] 1.6 {INR} High 0.9 - 1.1 [facility] Interpretation and review of laboratory results Abnormal [facility] INR Coag (PPP) [Relative time] 1.5 {INR} High 0.9 - 1.1 [facility] Progress Noteon 03-04-2025 Progress Note Normal [facility] Progress Note Normal [facility] Progress Note Normal [facility] aPTT Coag (Bld) [Time]on aPTT Coag (PPP) [Time] 52.2 s High 20.0 - 30.5 s [facility] 30on 03-03-2025 30 Normal [facility] 30 Normal [facility] 30 Normal [facility] [id number] 03-03-2025 [id number] Normal [facility] APTTon 03-03-2025 aPTT Coag (Bld) [Time] 66.2 s High 20.0-30.5 [facility] Comment on above: Result Comment: ARPAN Kaplan COMMENTS:NOTE: The therapeutic time for Heparin anticoagulation, based on Xa activity inhibition, is an APTT of 46-80 seconds. Performed By: #### L AB325 ####Phys Assistant: DOMENICA JARA ([id number])[address] aPTT Coag (Bld) [Time] 52.4 s High 20.0-30.5 [facility] Comment on above: Result Comment: ARPAN Kaplan COMMENTS:NOTE: The therapeutic time for Heparin anticoagulation, based on Xa activity inhibition, is an APTT of 46-80 seconds. Performed By: #### L AB325, [id number] ####Phys Assistant: DOMENICA JARA ([id number])[address] BASIC METABOLIC PANELon Anion gap [Moles/Vol] 10 mmol/L Normal 3-13 [facility] Comment on above: Performed By: #### L AB15 ####Phys Assistant: DOMENICA JARA ([id number])[place] [address] [place] Calcium [Mass/Vol] 9.2 mg/dL Normal 8.4-10.2 [facility] Comment on above: Performed By: #### L AB15 ####Phys Assistant: DOMENICA JARA ([id number])[facility] [place] [address] Chloride [Moles/Vol] 100 mmol/L Normal 98-107 [facility] Comment on above: Performed By: #### L AB15 ####Phys Assistant: DOMENICA JARA ([id number])[facility] ([facility])[address] [place] [address] CO2 [Moles/Vol] 29 mmol/L Normal 22-29 [facility] Comment on above: Performed By: #### L AB15 ####Phys Assistant: DOMENICA JARA ([id number])[facility] ([facility])[address] [place] [address] Creatinine [Mass/Vol] 1.92 mg/dL High 0.72-1.25 [facility] Comment on above: Performed By: #### L AB15 ####Phys Assistant: DOMENICA JARA ([id number])[facility] ([facility])[address] [place] [address] GLOMERULAR FILTRATION RATE ML/MIN/1.73 SQ M.PREDICTED 39.6 mL/min/1.73m*2 Low >60.0 [facility] Comment on above: Result Comment: Calc ulation based on the Chronic Kidney Disease Epidemiology Collaboration (CKD-EPI) equation refit without adjustment for race Performed By: #### L AB15 ####Phys Assistant: DOMENICA JARA ([id number])[facility] ([facility])[address] [place] [address] [place] Glucose [Mass/Vol] 71 mg/dL Low 74-100 [facility] Comment on above: Performed By: #### L AB15 ####Phys Assistant: DOMENICA JARA ([id number])[facility] ([facility])[address] [place] [address] Potassium [Moles/Vol] 4.8 mmol/L Normal 3.5-5.1 [facility] Comment on above: Result Comment: [facility] potassium values may be up to 0.5 mmol/L lower than serum values. Performed By: #### L AB15 ####Phys Assistant: DOMENICA JARA ([id number])[facility] [place] [address] Sodium [Moles/Vol] 139 mmol/L Normal 136-145 [facility] Comment on above: Performed By: #### L AB15 ####Phys Assistant: DOMENICA JARA ([id number])[facility] ([facility])[address] [place] [address] Urea nitrogen [Mass/Vol] 14 mg/dL Normal 9-23 [facility] Comment on above: Performed By: #### L AB15 ####Phys Assistant: DOMENICA JARA ([id number])[facility] ([facility])[address] [place] [address] Anion gap [Moles/Vol] 11 mmol/L Normal 3-13 [facility] Comment on above: Performed By: #### L AB15 ####Phys Assistant: DOMENICA JARA ([id number])[facility] ([facility])[address] [place] [address] Calcium [Mass/Vol] 9.8 mg/dL Normal 8.4-10.2 [facility] Comment on above: Performed By: #### L AB15 ####Phys Assistant: DOMENICA JARA ([id number])[facility] ([facility])[address] [place] [address] [place] Chloride [Moles/Vol] 101 mmol/L Normal 98-107 [facility] Comment on above: Performed By: #### L AB15 ####Phys Assistant: DOMENICA JARA ([id number])[facility] ([facility])[address] [place] [address] CO2 [Moles/Vol] 28 mmol/L Normal 22-29 [facility] Comment on above: Performed By: #### L AB15 ####Phys Assistant: DOMENICA JARA ([id number])[facility] ([facility])[address] [place] [address] Creatinine [Mass/Vol] 3.21 mg/dL High 0.72-1.25 [facility] Comment on above: Performed By: #### L AB15 ####Phys Assistant: DOMENICA JARA ([id number])[facility])[address] [place] [address] [place] GLOMERULAR FILTRATION RATE ML/MIN/1.73 SQ M.PREDICTED 21.4 mL/min/1.73m*2 Low >60.0 [facility] Comment on above: Result Comment: Calc ulation based on the Chronic Kidney Disease Epidemiology Collaboration (CKD-EPI) equation refit without adjustment for race Performed By: #### L AB15 ####Phys Assistant: DOMENICA JARA ([id number])[facility])[address] [place] [address] Glucose [Mass/Vol] 93 mg/dL Normal 74-100 [facility] Comment on above: Performed By: #### L AB15 ####Phys Assistant: DOMENICA JARA ([id number])[facility])[address] [place] [address] Potassium [Moles/Vol] 6.2 mmol/L Critically high 3.5-5.1 [facility] Comment on above: Result Comment: [facility] potassium values may be up to 0.5 mmol/L lower than serum values. Performed By: #### L AB15 ####Phys Assistant: DOMENICA JARA ([id number])[facility] ([facility])[address] [place] [address] [place] Sodium [Moles/Vol] 140 mmol/L Normal 136-145 [facility] Comment on above: Performed By: #### L AB15 ####Phys Assistant: DOMENICA JARA ([phone])[facility])[address] [place] [address] [place] Urea nitrogen [Mass/Vol] 26 mg/dL High 9-23 [facility] Comment on above: Performed By: #### L AB15 ####Phys Assistant: DOMENICA JARA ([id number])[address] Basic metabolic 1997 panelOr dered By: Piedad Alvarado on 03-03-2025 Anion gap [Moles/Vol] 10 mmol/L 3 - 13 mmol/L [facility] Calcium [Mass/Vol] 9.2 mg/dL 8.4 - 10. 2 mg/dL [facility] Chloride [Moles/Vol] 100 mmol/L 98 - 10 7 mmol/L [facility] CO2 [Moles/Vol] 29 mmol/L 22 - 29 mmol/L [facility] Creatinine [Mass/Vol] 1.92 mg/dL High 0.72 - 1.25 mg/dL [facility] GFR/1.73 sq M.predicted (S/P/Bld) [Vol rate/Area] 39.6 mL/min Low - PINF [facility] Glucose [Mass/Vol] 71 mg/dL Low 74 - 100 mg/dL [facility] Interpretation and review of laboratory results Abnormal [facility] Potassium [Moles/Vol] 4.8 mmol/L 3.5 - 5.1 mmol/L [facility] Sodium [Moles/Vol] 139 mmol/L 136 - 145 mmol/L [facility] Urea nitrogen [Mass/Vol] 14 mg/dL 9 - 23 mg/d L [facility] Basic metabolic 1997 panelOr dered By: Jenni Romano on 03-03-2025 Anion gap [Moles/Vol] 11 mmol/L 3 - 13 mmol/L [facility] Calcium [Mass/Vol] 9.8 mg/dL 8.4 - 10. 2 mg/dL [facility] Chloride [Moles/Vol] 101 mmol/L 98 - 10 7 mmol/L [facility] CO2 [Moles/Vol] 28 mmol/L 22 - 29 mmol/L [facility] Creatinine [Mass/Vol] 3.21 mg/dL High 0.72 - 1.25 mg/dL [facility] GFR/1.73 sq M.predicted (S/P/Bld) [Vol rate/Area] 21.4 mL/min Low - PINF [facility] Glucose [Mass/Vol] 93 mg/dL 74 - 100 mg/dL [facility] Interpretation and review of laboratory results Abnormal [facility] Potassium [Moles/Vol] 6.2 mmol/L Critically high 3.5 - 5.1 mmol/L [facility] Sodium [Moles/Vol] 140 mmol/L 136 - 145 mmol/L [facility] Urea nitrogen [Mass/Vol] 26 mg/dL High 9 - 23 mg/d L [facility] CBC (HEMOGRAM)on 03-03-2025 Erythrocyte distribution width (RBC) [Ratio] 20.9 % High 11.5-15.0 [facility] Comment on above: Performed By: #### L [id number] ####Phys Assistant: DOMENICA JARA ([phone])[facility])[address] [place] [address] Hematocrit (Bld) [Volume fraction] 27.8 % Low 40.0-52.0 [facility] Comment on above: Performed By: #### L AB294 ####Phys Assistant: DOMENICA JARA ([id number])[facility])[address] [place] [address] Hemoglobin (Bld) [Mass/Vol] 8.3 g/dL Low 13.0-18.0 [facility] Comment on above: Performed By: #### L AB294 ####Phys Assistant: DOMENICA JARA ([phone])[facility])[address] [place] [address] [place] IPF 2 Normal [facility] Comment on above: Performed By: #### L AB294 ####Phys Assistant: DOMENICA JARA ([id number])[facility])[address] [place] [address] MCH (RBC) [Entitic mass] 29.5 pg Normal 26.0-34.0 [facility] Comment on above: Performed By: #### L AB294 ####Phys Assistant: DOMENICA JARA ([id number])[facility])[address] [place] [address] MCHC 29.9 % Low 30.5-36.0 [facility] Comment on above: Performed By: #### L AB294 ####Phys Assistant: DOMENICA JARA ([id number])[facility] ([facility])[address] [place] [address] MCV (RBC) [Entitic vol] 98.9 fL Normal 77.0-99.0 S [facility] Comment on above: Performed By: #### L AB294 ####Phys Assistant: DOMENICA JARA ([id number])[facility] ([facility])[address] [place] [address] Platelet mean volume (Bld) [Entitic vol] 9.1 fL Normal 9.0-12.7 [facility] Comment on above: Performed By: #### L AB294 ####Phys Assistant: DOMENICA JARA ([id number])[facility] ([facility])[address] [place] [address] Platelets (Bld) [#/Vol] 397 10*3/uL Normal 140-440 [facility] Comment on above: Performed By: #### L AB294 ####Phys Assistant: DOMENICA JARA ([id number])[facility] ([facility])[address] [place] [address] RBC (Bld) [#/Vol] 2.81 10*6/uL Low 4.40-5.90 [facility] Comment on above: Performed By: #### L AB294 ####Phys Assistant: DOMENICA JARA ([id number])[facility] ([facility])[address] [place] [address] WBC (Bld) [#/Vol] 8.9 10*3/uL Normal 3.6-10.7 [facility] Comment on above: Performed By: #### L AB294 ####Phys Assistant: DOMENICA JARA ([phone])[facility])[address] [place] [address] CBC panel Auto (Bld)Ordered By: Anu Graham on 03-03-2025 Erythrocyte distribution width (RBC) [Ratio] 20.9 % High 11.5 - 15.0 % [facility] Hematocrit (Bld) [Volume fraction] 27.8 % Low 40.0 - 52.0 % [facility] Hemoglobin (Bld) [Mass/Vol] 8.3 g/dL Low 13.0 - 18.0 g/dL [facility] Interpretation and review of laboratory results Abnormal [facility] IPF 2 [facility] MCH (RBC) [Entitic mass] 29.5 pg 26. 0 - 34.0 pg [facility] MCHC (RBC) [Mass/Vol] 29.9 % Low 30.5 - 36.0 % [facility] MCV (RBC) [Entitic vol] 98.9 fL 77.0 - 99.0 fL [facility] Platelet mean volume (Bld) [Entitic vol] 9.1 fL 9.0 - 12.7 fL [facility] Platelets (Bld) [#/Vol] 397 10*3/uL 140 - 440 10*3/uL [facility] RBC (Bld) [#/Vol] 2.81 10*6/uL Low 4.40 - 5.9 0 10*6/uL [facility] WBC (Bld) [#/Vol] 8.9 10*3/uL 3.6 - 10.7 10*3/uL [facility] Laboratory - Coagulationon 0 03-03-2025 PT Coag (Bld) [Time] 16.2 s High 9.0 - 12.0 s [facility] No Panel Informationon 03-03 Interpretation and review of laboratory results Abnormal [facility] Nursing Noteon 03-03-2025 Nursing Note Normal [facility] Nursing Note In patient's chart, d/t patient being on his call light excessively and finally telling me he wants something for pain. Please see eMAR for administration Normal [facility] PROTHROMBIN TIMEon INR Coag (PPP) [Relative time] 1.6 {INR} High 0.9-1.1 [facility] Comment on above: Result Comment: Vaughn mmended [...] Myocardial Infarction Performed By: #### L AB325, [id number] ####Phys Assistant: DOMENICA JARA ([id number])[facility] ([facility])[address] [place] [address] PT Coag (PPP) [Time] 16.2 s High 9.0-12.0 [facility] Comment on above: Performed By: #### L AB325, [id number] ####Phys Assistant: DOMENICA JARA ([id number])[facility] [place] [address] PT Coag (Bld) [Time]on 03-03 INR Coag (PPP) [Relative time] 1.6 {INR} High 0.9 - 1.1 [facility] Progress Noteon 03-03-2025 Progress Note Normal [facility] Progress Note Normal [facility] Progress Note Normal [facility] aPTT Coag (Bld) [Time]on aPTT Coag (PPP) [Time] 66.2 s High 20.0 - 30.5 s [facility] Interpretation and review of laboratory results Abnormal [facility] aPTT Coag (PPP) [Time] 52.4 s High 20.0 - 30.5 s [facility] 30on 03-02-2025 30 Switch to augmentin 500mg q24 (to be taken after HD on HD days) until 03/10/25. Team aware of discharge plan Waiting for INR to be in therapeutic range ID will sign off Please re consult if needed Hussain Quintana MD 03/02/2025 12:43 PM Normal [facility] 30 Normal [facility] [id number] 03-02-2025 [id number] Normal [facility] APTTon 03-02-2025 aPTT Coag (Bld) [Time] 68.9 s High 20.0-30.5 [facility] Comment on above: Result Comment: ARPAN R COMMENTS:NOTE: The therapeutic time for Heparin anticoagulation, based on Xa activity inhibition, is an APTT of 46-80 seconds. Performed By: #### L AB325 ####Phys Assistant: DOMENICA JARA ([phone])[facility])[address] [place] [address] aPTT Coag (Bld) [Time] 44.7 s High 20.0-30.5 [facility] Comment on above: Result Comment: ARPAN Kaplan COMMENTS:NOTE: The therapeutic time for Heparin anticoagulation, based on Xa activity inhibition, is an APTT of 46-80 seconds. Performed By: #### L AB325 ####Phys Assistant: DOMENICA JARA ([phone])[facility] ([facility])[address] [place] [address] aPTT Coag (Bld) [Time] 56.5 s High 20.0-30.5 [facility] Comment on above: Result Comment: ARPAN Kaplan COMMENTS:NOTE: The therapeutic time for Heparin anticoagulation, based on Xa activity inhibition, is an APTT of 46-80 seconds. Performed By: #### L AB325 ####Phys Assistant: DOMENICA JARA ([id number])[facility] ([facility])[address] [place] [address] aPTT Coag (Bld) [Time] 44.7 s High 20.0-30.5 [facility] Comment on above: Result Comment: ARPAN Kaplan COMMENTS:NOTE: The therapeutic time for Heparin anticoagulation, based on Xa activity inhibition, is an APTT of 46-80 seconds. Performed By: #### L AB320, [id number] ####Phys Assistant: DOMENICA JARA ([phone])[facility] ([facility])[address] [place] [address] BASIC METABOLIC PANELon 06-0 Anion gap [Moles/Vol] 11 mmol/L Normal 3-13 [facility] Comment on above: Performed By: #### L AB15 ####Phys Assistant: DOMENICA JARA ([id number])[facility] ([facility])[address] [place] [address] Calcium [Mass/Vol] 9.2 mg/dL Normal 8.4-10.2 [facility] Comment on above: Performed By: #### L AB15 ####Phys Assistant: DOMENICA JARA ([id number])[facility] ([facility])[address] [place] [address] Chloride [Moles/Vol] 102 mmol/L Normal 98-107 [facility] Comment on above: Performed By: #### L AB15 ####Phys Assistant: DOMENICA JARA ([phone])[facility] ([facility])[address] [place] [address] CO2 [Moles/Vol] 26 mmol/L Normal 22-29 [facility] Comment on above: Performed By: #### L AB15 ####Phys Assistant: DOMENICA JARA ([id number])[facility] [facility])[address] [place] [address] Creatinine [Mass/Vol] 2.53 mg/dL High 0.72-1.25 [facility] Comment on above: Performed By: #### L AB15 ####Phys Assistant: DOMENICA JARA ([phone])[facility] ([facility])[address] [place] [address] [place] GLOMERULAR FILTRATION RATE ML/MIN/1.73 SQ M.PREDICTED 28.5 mL/min/1.73m*2 Low >60.0 [facility] Comment on above: Result Comment: Calc ulation based on the Chronic Kidney Disease Epidemiology Collaboration (CKD-EPI) equation refit without adjustment for race Performed By: #### L AB15 ####Phys Assistant: DOMENICA JARA ([phone])[facility] ([facility])[address] [place] [address] [place] Glucose [Mass/Vol] 107 mg/dL High 74-100 [facility] Comment on above: Performed By: #### L AB15 ####Phys Assistant: DOMENICA JARA ([phone])[facility] ([facility])[address] [place] [address] [place] Potassium [Moles/Vol] 4.6 mmol/L Normal 3.5-5.1 [facility] Comment on above: Result Comment: [facility] potassium values may be up to 0.5 mmol/L lower than serum values. Performed By: #### L AB15 ####Phys Assistant: DOMENICA JARA ([phone])[facility] ([facility])[address] [place] [address] Sodium [Moles/Vol] 139 mmol/L Normal 136-145 [facility] Comment on above: Performed By: #### L AB15 ####Phys Assistant: DOMENICA JARA ([id number])[facility] [place] [address] Urea nitrogen [Mass/Vol] 16 mg/dL Normal 9-23 [facility] Comment on above: Performed By: #### L AB15 ####Phys Assistant: DOMENICA JARA ([id number])[facility] ([facility])[address] [place] [address] Basic metabolic 1998 panelon 03-02-2025 Anion gap [Moles/Vol] 11 mmol/L 3 - 13 mmol/L [facility] Calcium [Mass/Vol] 9.2 mg/dL 8.4 - 10. 2 mg/dL [facility] Chloride [Moles/Vol] 102 mmol/L 98 - 10 7 mmol/L [facility] CO2 [Moles/Vol] 26 mmol/L 22 - 29 mmol/L [facility] Creatinine [Mass/Vol] 2.53 mg/dL High 0.72 - 1.25 mg/dL [facility] GFR/1.73 sq M.predicted (S/P/Bld) [Vol rate/Area] 28.5 mL/min Low - PINF [facility] Glucose [Mass/Vol] 107 mg/dL High 74 - 100 mg/dL [facility] Interpretation and review of laboratory results Abnormal [facility] Potassium [Moles/Vol] 4.6 mmol/L 3.5 - 5.1 mmol/L [facility] Sodium [Moles/Vol] 139 mmol/L 136 - 145 mmol/L [facility] Urea nitrogen [Mass/Vol] 16 mg/dL 9 - 23 mg/d L [facility] CBC (HEMOGRAM)on 03-02-2025 Erythrocyte distribution width (RBC) [Ratio] 20.1 % High 11.5-15.0 [facility] Comment on above: Performed By: #### L AB294 ####Phys Assistant: DOMENICA JARA ([phone])[facility])[address] [place] [address] Hematocrit (Bld) [Volume fraction] 25.4 % Low 40.0-52.0 [facility] Comment on above: Performed By: #### L AB294 ####Phys Assistant: DOMENICA JARA ([phone])[address] Hemoglobin (Bld) [Mass/Vol] 7.7 g/dL Low 13.0-18.0 [facility] Comment on above: Performed By: #### L AB294 ####Phys Assistant: DOMENICA JARA ([id number])[address] IPF 2 Normal [facility] Comment on above: Performed By: #### L AB294 ####Phys Assistant: DOMENICA JARA ([phone])[address] MCH (RBC) [Entitic mass] 29.7 pg Normal 26.0-34.0 [facility] Comment on above: Performed By: #### L AB294 ####Phys Assistant: DOMENICA JARA ([id number])[address] MCHC 30.3 % Low 30.5-36.0 [facility] Comment on above: Performed By: #### L AB294 ####Phys Assistant: DOMENICA JARA ([id number])[address] MCV (RBC) [Entitic vol] 98.1 fL Normal 77.0-99.0 [facility] Comment on above: Performed By: #### L AB294 ####Phys Assistant: DOMENICA JARA ([phone])[facility] ([facility])[address] [place] [address] Platelet mean volume (Bld) [Entitic vol] 9.0 fL Normal 9.0-12.7 [facility] Comment on above: Performed By: #### L AB294 ####Phys Assistant: DOMENICA JARA ([id number])[facility] ([facility])[address] [place] [address] Platelets (Bld) [#/Vol] 354 10*3/uL Normal 140-440 [facility] Comment on above: Performed By: #### L AB294 ####Phys Assistant: DOMENICA JARA ([id number])[facility])[address] [place] [address] RBC (Bld) [#/Vol] 2.59 10*6/uL Low 4.40-5.90 [facility] Comment on above: Performed By: #### L AB294 ####Phys Assistant: DOMENICA JARA ([phone])[facility] ([facility])[address] [place] [address] WBC (Bld) [#/Vol] 7.4 10*3/uL Normal 3.6-10.7 [facility] Comment on above: Performed By: #### L AB294 ####Phys Assistant: DOMENICA JARA ([id number])[facility])[address] [place] [address] CBC panel Auto (Bld)Ordered By: Callie Steele on 03-02-2025 Erythrocyte distribution width (RBC) [Ratio] 20.1 % High 11.5 - 15.0 % [facility] Hematocrit (Bld) [Volume fraction] 25.4 % Low 40.0 - 52.0 % [facility] Hemoglobin (Bld) [Mass/Vol] 7.7 g/dL Low 13.0 - 18.0 g/dL [facility] Interpretation and review of laboratory results Abnormal [facility] IPF 2 [facility] MCH (RBC) [Entitic mass] 29.7 pg 26. 0 - 34.0 pg [facility] MCHC (RBC) [Mass/Vol] 30.3 % Low 30.5 - 36.0 % [facility] MCV (RBC) [Entitic vol] 98.1 fL 77.0 - 99.0 fL [facility] Platelet mean volume (Bld) [Entitic vol] 9 fL 9.0 - 12.7 fL [facility] Platelets (Bld) [#/Vol] 354 10*3/uL 140 - 440 10*3/uL [facility] RBC (Bld) [#/Vol] 2.59 10*6/uL Low 4.40 - 5.9 0 10*6/uL [facility] WBC (Bld) [#/Vol] 7.4 10*3/uL 3.6 - 10.7 10*3/uL [facility] Laboratory - Coagulationon 0 03-02-2025 PT Coag (Bld) [Time] 14.7 s High 9.0 - 12.0 s [facility] No Panel Informationon 03-02 Interpretation and review of laboratory results Abnormal [facility] PROTHROMBIN TIMEon INR Coag (PPP) [Relative time] 1.4 {INR} High 0.9-1.1 [facility] Comment on above: Result Comment: Vaughn mmended [...] Myocardial Infarction Performed By: #### L AB320, [id number] ####Phys Assistant: DOMENICA JARA ([id number])[facility] ([address] PT Coag (PPP) [Time] 14.7 s High 9.0-12.0 [facility] Comment on above: Performed By: #### Tameka AB320, [id number] ####Phys Assistant: DOMENICA JARA ([id number])[facility] ([facility])[address] [place] [address] PT Coag (Bld) [Time]on 03-02 INR Coag (PPP) [Relative time] 1.4 {INR} High 0.9 - 1.1 [facility] Progress Noteon 03-02-2025 Progress Note Normal [facility] Progress Note Normal [facility] Progress Note Normal [facility] Progress Note Normal [facility] aPTT Coag (Bld) [Time]on aPTT Coag (PPP) [Time] 68.9 s High 20.0 - 30.5 s [facility] Interpretation and review of laboratory results Abnormal [facility] aPTT Coag (PPP) [Time] 44.7 s High 20.0 - 30.5 s [facility] Interpretation and review of laboratory results Abnormal [facility] aPTT Coag (PPP) [Time] 56.5 s High 20.0 - 30.5 s [facility] Interpretation and review of laboratory results Abnormal [facility] aPTT Coag (PPP) [Time] 44.7 s High 20.0 - 30.5 s [facility] 30on 03-01-2025 30 Normal [facility] [id number] 03-01-2025 [id number] Discharge med list and updated notes transmitted to [facility] via [facility] per TCC request. Normal [facility] [id number] Normal [facility] APTTon 03-01-2025 aPTT Coag (Bld) [Time] 51.3 s High 20.0-30.5 [facility] Comment on above: Result Comment: [facility] COMMENTS:NOTE: The therapeutic time for Heparin anticoagulation, based on Xa activity inhibition, is an APTT of 46-80 seconds. Performed By: #### L AB320, [id number] ####Phys Assistant: DOMENICA JARA ([id number])[facility] ([facility])[address] [place] [address] BASIC METABOLIC PANELon 06-0 Anion gap [Moles/Vol] 13 mmol/L Normal 3-13 [facility] Comment on above: Performed By: #### L AB15 ####Phys Assistant: DOMENICA JARA ([id number])[facility] [place] [address] Calcium [Mass/Vol] 9.6 mg/dL Normal 8.4-10.2 [facility] Comment on above: Performed By: #### L AB15 ####Phys Assistant: DOMENICA JARA ([id number])[facility] [place] [address] Chloride [Moles/Vol] 102 mmol/L Normal 98-107 [facility] Comment on above: Performed By: #### L AB15 ####Phys Assistant: DOMENICA JARA ([id number])[facility] [place] [address] CO2 [Moles/Vol] 23 mmol/L Normal 22-29 [facility] Comment on above: Performed By: #### L AB15 ####Phys Assistant: DOMENICA JARA ([id number])[facility] ([facility])[address] [place] [address] Creatinine [Mass/Vol] 3.73 mg/dL High 0.72-1.25 [facility] Comment on above: Performed By: #### L AB15 ####Phys Assistant: DOMENICA JARA ([phone])[facility] ([facility])[address] [place] [address] GLOMERULAR FILTRATION RATE ML/MIN/1.73 SQ M.PREDICTED 17.9 mL/min/1.73m*2 Low >60.0 [facility] Comment on above: Result Comment: Calc ulation based on the Chronic Kidney Disease Epidemiology Collaboration (CKD-EPI) equation refit without adjustment for race Performed By: #### L AB15 ####Phys Assistant: DOMENICA JARA ([id number])[facility] [place] [address] Glucose [Mass/Vol] 87 mg/dL Normal 74-100 [facility] Comment on above: Performed By: #### L AB15 ####Phys Assistant: DOMENICA JARA ([id number])[facility])[address] [place] [address] Potassium [Moles/Vol] 5.8 mmol/L High 3.5-5.1 [facility] Comment on above: Result Comment: [facility] potassium values may be up to 0.5 mmol/L lower than serum values. Performed By: #### L AB15 ####Phys Assistant: DOMENICA JARA ([phone])[facility] ([facility])[address] [place] [address] Sodium [Moles/Vol] 138 mmol/L Normal 136-145 [facility] Comment on above: Performed By: #### L AB15 ####Phys Assistant: DOMENICA JARA ([id number])[facility] ([facility])[address] [place] [address] Urea nitrogen [Mass/Vol] 28 mg/dL High 9-23 [facility] Comment on above: Performed By: #### L AB15 ####Phys Assistant: DOMENICA JARA ([phone])[facility] ([facility])[address] [place] [address] Basic metabolic 1998 panelon 03-01-2025 Anion gap [Moles/Vol] 13 mmol/L 3 - 13 mmol/L [facility] Calcium [Mass/Vol] 9.6 mg/dL 8.4 - 10. 2 mg/dL [facility] Chloride [Moles/Vol] 102 mmol/L 98 - 10 7 mmol/L [facility] CO2 [Moles/Vol] 23 mmol/L 22 - 29 mmol/L [facility] Creatinine [Mass/Vol] 3.73 mg/dL High 0.72 - 1.25 mg/dL [facility] GFR/1.73 sq M.predicted (S/P/Bld) [Vol rate/Area] 17.9 mL/min Low - PINF [facility] Glucose [Mass/Vol] 87 mg/dL 74 - 100 mg/dL [facility] Interpretation and review of laboratory results Abnormal [facility] Potassium [Moles/Vol] 5.8 mmol/L High 3.5 - 5.1 mmol/L [facility] Sodium [Moles/Vol] 138 mmol/L 136 - 145 mmol/L [facility] Urea nitrogen [Mass/Vol] 28 mg/dL High 9 - 23 mg/d L [facility] CBC (HEMOGRAM)on 03-01-2025 Erythrocyte distribution width (RBC) [Ratio] 19.7 % High 11.5-15.0 [facility] Comment on above: Performed By: #### L AB294 ####Phys Assistant: DOMENICA JARA ([id number])[facility])[address] [place] [address] Hematocrit (Bld) [Volume fraction] 26.9 % Low 40.0-52.0 [facility] Comment on above: Performed By: #### L AB294 ####Phys Assistant: DOMENICA JARA ([id number])[facility])[address] [place] [address] Hemoglobin (Bld) [Mass/Vol] 8.0 g/dL Low 13.0-18.0 [facility] Comment on above: Performed By: #### L AB294 ####Phys Assistant: DOMENICA JARA ([id number])[facility])[address] [place] [address] MCH (RBC) [Entitic mass] 28.8 pg Normal 26.0-34.0 [facility] Comment on above: Performed By: #### L AB294 ####Phys Assistant: DOMENICA JARA ([phone])[facility])[address] [place] [address] MCHC 29.7 % Low 30.5-36.0 [facility] Comment on above: Performed By: #### L AB294 ####Phys Assistant: DOMENICA JARA ([phone])[facility])[address] [place] [address] MCV (RBC) [Entitic vol] 96.8 fL Normal 77.0-99.0 S [facility] Comment on above: Performed By: #### L AB294 ####Phys Assistant: DOMENICA JARA ([id number])[facility])[address] [place] [address] Platelet mean volume (Bld) [Entitic vol] 8.7 fL Low 9.0-12.7 [facility] Comment on above: Performed By: #### L AB294 ####Phys Assistant: DOMENICA JARA ([id number])[facility] ([facility])[address] [place] [address] Platelets (Bld) [#/Vol] 306 10*3/uL Normal 140-440 [facility] Comment on above: Performed By: #### L AB294 ####Phys Assistant: DOMENICA JARA ([phone])[facility])[address] [place] [address] RBC (Bld) [#/Vol] 2.78 10*6/uL Low 4.40-5.90 [facility] Comment on above: Performed By: #### L AB294 ####Phys Assistant: DOMENICA JARA ([phone])[facility])[address] [place] [address] WBC (Bld) [#/Vol] 7.5 10*3/uL Normal 3.6-10.7 [facility] Comment on above: Performed By: #### L AB294 ####Phys Assistant: DOMENICA JARA ([phone])[facility])[address] [place] [address] CBC panel Auto (Bld)on 03-01 Erythrocyte distribution width (RBC) [Ratio] 19.7 % High 11.5 - 15.0 % [facility] Hematocrit (Bld) [Volume fraction] 26.9 % Low 40.0 - 52.0 % [facility] Hemoglobin (Bld) [Mass/Vol] 8 g/dL Low 13.0 - 18.0 g/dL [facility] Interpretation and review of laboratory results Abnormal [facility] MCH (RBC) [Entitic mass] 28.8 pg 26. 0 - 34.0 pg [facility] MCHC (RBC) [Mass/Vol] 29.7 % Low 30.5 - 36.0 % [facility] MCV (RBC) [Entitic vol] 96.8 fL 77.0 - 99.0 fL [facility] Platelet mean volume (Bld) [Entitic vol] 8.7 fL Low 9.0 - 12.7 fL [facility] Platelets (Bld) [#/Vol] 306 10*3/uL 140 - 440 10*3/uL [facility] RBC (Bld) [#/Vol] 2.78 10*6/uL Low 4.40 - 5.9 0 10*6/uL [facility] WBC (Bld) [#/Vol] 7.5 10*3/uL 3.6 - 10.7 10*3/uL [facility] Laboratory - Coagulationon 0 03-01-2025 PT Coag (Bld) [Time] 14.3 s High 9.0 - 12.0 s [facility] No Panel Informationon 03-01 Interpretation and review of laboratory results Abnormal [facility] Nursing Noteon 03-01-2025 Nursing Note Normal [facility] PROTHROMBIN TIMEon INR Coag (PPP) [Relative time] 1.4 {INR} High 0.9-1.1 [facility] Comment on above: Result Comment: Vaughn mmended [...] Myocardial Infarction Performed By: #### L AB320, [id number] ####Phys Assistant: DOMENICA JARA ([phone])[facility] ([address] PT Coag (PPP) [Time] 14.3 s High 9.0-12.0 [facility] Comment on above: Performed By: #### L AB320, [id number] ####Phys Assistant: DOMENICA JARA ([id number])[facility] ([facility] PT Coag (Bld) [Time]on 03-01 INR Coag (PPP) [Relative time] 1.4 {INR} High 0.9 - 1.1 [facility] Progress Noteon 03-01-2025 Progress Note Normal [facility] Progress Note Normal [facility] Progress Note Normal [facility] Progress Note Normal [facility] Progress Note PHYSICAL THERAPY [facility] Name/MRN: Jair Snyder ([id number]) Date: 03/01/2025 Leaving for dialysis. Return later time/date for PT. Merlene León, JOY Normal [facility] Progress Note Normal [facility] aPTT Coag (Bld) [Time]on aPTT Coag (PPP) [Time] 51.3 s High 20.0 - 30.5 s [facility] 30on 02-28-2025 30 Normal [facility] 30 Normal [facility] [id number] 02-28-2025 [id number] Auth is back however can not discharge still on hep gtt- auth good thru 03/02- hoping by Wednesday AM . Updated snf . [facility] [phone] Transport requested in [employer] in will call per TCC. 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 Performed By: #### L AB325, [id number] ####Phys Assistant: DOMENICA JARA ([phone])[facility] ([facility])[address] [place] [address] BASIC METABOLIC PANELon 06-0 Anion gap [Moles/Vol] 11 mmol/L Normal 3-13 [facility] Comment on above: Performed By: #### L AB15 ####Phys Assistant: DOMENICA JARA ([phone])[facility] ([facility])[address] [place] [address] Calcium [Mass/Vol] 9.3 mg/dL Normal 8.4-10.2 [facility] Comment on above: Performed By: #### L AB15 ####Phys Assistant: DOMENICA JARA ([phone])[facility] ([facility])[address] [place] [address] Chloride [Moles/Vol] 100 mmol/L Normal 98-107 [facility] Comment on above: Performed By: #### L AB15 ####Phys Assistant: DOMENICA JARA ([phone])[facility] [place] [address] CO2 [Moles/Vol] 27 mmol/L Normal 22-29 [facility] Comment on above: Performed By: #### L AB15 ####Phys Assistant: DOMENICA JARA ([phone])[facility] ([facility])[address] [place] [address] Creatinine [Mass/Vol] 3.06 mg/dL High 0.72-1.25 [facility] Comment on above: Performed By: #### L AB15 ####Phys Assistant: DOMENICA JARA ([phone])[facility] ([facility])[address] [place] [address] [place] GLOMERULAR FILTRATION RATE ML/MIN/1.73 SQ M.PREDICTED 22.7 mL/min/1.73m*2 Low >60.0 [facility] Comment on above: Result Comment: Calc ulation based on the Chronic Kidney Disease Epidemiology Collaboration (CKD-EPI) equation refit without adjustment for race Performed By: #### L AB15 ####Phys Assistant: DOMENICA JARA ([phone])[facility] ([facility])[address] [place] [address] Glucose [Mass/Vol] 94 mg/dL Normal 74-100 [facility] Comment on above: Performed By: #### L AB15 ####Phys Assistant: DOMENICA JARA ([phone])[facility] ([facility])[address] [place] [address] Potassium [Moles/Vol] 5.0 mmol/L Normal 3.5-5.1 [facility] Comment on above: Result Comment: [facility] potassium values may be up to 0.5 mmol/L lower than serum values. Performed By: #### L AB15 ####Phys Assistant: DOMENICA JARA ([phone])[facility] ([facility])[address] [place] [address] Sodium [Moles/Vol] 138 mmol/L Normal 136-145 [facility] Comment on above: Performed By: #### L AB15 ####Phys Assistant: DOMENICA JARA ([phone])[facility] ([facility])[address] [place] [address] Urea nitrogen [Mass/Vol] 19 mg/dL Normal 9-23 [facility] Comment on above: Performed By: #### L AB15 ####Phys Assistant: DOMENICA JARA ([phone])[facility])[address] [place] [address] Basic metabolic 1998 panelon 02-28-2025 Anion gap [Moles/Vol] 11 mmol/L 3 - 13 mmol/L [facility] Calcium [Mass/Vol] 9.3 mg/dL 8.4 - 10. 2 mg/dL [facility] Chloride [Moles/Vol] 100 mmol/L 98 - 10 7 mmol/L [facility] CO2 [Moles/Vol] 27 mmol/L 22 - 29 mmol/L [facility] Creatinine [Mass/Vol] 3.06 mg/dL High 0.72 - 1.25 mg/dL [facility] GFR/1.73 sq M.predicted (S/P/Bld) [Vol rate/Area] 22.7 mL/min Low - PINF [facility] Glucose [Mass/Vol] 94 mg/dL 74 - 100 mg/dL [facility] Interpretation and review of laboratory results Abnormal [facility] Potassium [Moles/Vol] 5 mmol/L 3.5 - 5.1 mmol/L [facility] Sodium [Moles/Vol] 138 mmol/L 136 - 145 mmol/L [facility] Urea nitrogen [Mass/Vol] 19 mg/dL 9 - 23 mg/d L [facility] CBC (HEMOGRAM)on 02-28-2025 Erythrocyte distribution width (RBC) [Ratio] 19.8 % High 11.5-15.0 [facility] Comment on above: Performed By: #### L AB294 ####Phys Assistant: DOMENICA JARA ([phone])[address] Hematocrit (Bld) [Volume fraction] 26.9 % Low 40.0-52.0 [facility] Comment on above: Performed By: #### L AB294 ####Phys Assistant: DOMENICA JARA ([phone])[address] Hemoglobin (Bld) [Mass/Vol] 8.2 g/dL Low 13.0-18.0 [facility] Comment on above: Performed By: #### L AB294 ####Phys Assistant: DOMENICA JARA ([phone])[address] MCH (RBC) [Entitic mass] 29.3 pg Normal 26.0-34.0 [facility] [facility] Comment on above: Performed By: #### L [id number] ####Phys Assistant: DOMENICA JARA ([phone])[address] MCHC 30.5 % Normal 30.5-36.0 [facility] Comment on above: Performed By: #### L [id number] ####Phys Assistant: DOMENICA [id number])[facility])[address] [place] [address] MCV (RBC) [Entitic vol] 96.1 fL Normal 77.0-99.0 S [facility] Comment on above: Performed By: #### L [id number] ####Phys Assistant: DOMENICA JARA ([phone])[facility])[address] [place] [address] Platelet mean volume (Bld) [Entitic vol] 9.0 fL Normal 9.0-12.7 [facility] Comment on above: Performed By: #### L [id number] ####Phys Assistant: DOMENICA JARA ([phone])[facility])[address] [place] [address] Platelets (Bld) [#/Vol] 324 10*3/uL Normal 140-440 [facility] Comment on above: Performed By: #### L [id number] ####Phys Assistant: DOMENICA JARA ([phone])[facility])[address] [place] [address] RBC (Bld) [#/Vol] 2.80 10*6/uL Low 4.40-5.90 [facility] Comment on above: Performed By: #### L [id number] ####Phys Assistant: DOMENICA JARA ([id number])[address] WBC (Bld) [#/Vol] 8.0 10*3/uL Normal 3.6-10.7 [facility] Comment on above: Performed By: #### L [id number] ####Phys Assistant: DOMENICA JARA ([id number])[facility])[address] [place] [address] CBC panel Auto (Bld)Ordered By: Giancarlo Lakhani on 02-28-2025 Erythrocyte distribution width (RBC) [Ratio] 19.8 % High 11.5 - 15.0 % [facility] Hematocrit (Bld) [Volume fraction] 26.9 % Low 40.0 - 52.0 % [facility] Hemoglobin (Bld) [Mass/Vol] 8.2 g/dL Low 13.0 - 18.0 g/dL [facility] Interpretation and review of laboratory results Abnormal [facility] MCH (RBC) [Entitic mass] 29.3 pg 26. 0 - 34.0 pg [facility] MCHC (RBC) [Mass/Vol] 30.5 % 30.5 - 36.0 % [facility] MCV (RBC) [Entitic vol] 96.1 fL 77.0 - 99.0 fL [facility] Platelet mean volume (Bld) [Entitic vol] 9 fL 9.0 - 12.7 fL [facility] Platelets (Bld) [#/Vol] 324 10*3/uL 140 - 440 10*3/uL [facility] RBC (Bld) [#/Vol] 2.8 10*6/uL Low 4.40 - 5.9 0 10*6/uL [facility] WBC (Bld) [#/Vol] 8 10*3/uL 3.6 - 10.7 10*3/uL [facility] Laboratory - Coagulationon 0 02-28-2025 PT Coag (Bld) [Time] 14 s High 9.0 - 12.0 s [facility] No Panel Informationon 02-28 Interpretation and review of laboratory results Abnormal [facility] Nursing Noteon 02-28-2025 Nursing Note Normal [facility] PROTHROMBIN TIMEon INR Coag (PPP) [Relative time] 1.3 {INR} High 0.9-1.1 [facility] Comment on above: Result Comment: Vaughn mmended [...] Myocardial Infarction Performed By: #### L [id number], [id number] ####Phys Assistant: DOMENICA JARA ([id number])[facility] ([facility] PT Coag (PPP) [Time] 14.0 s High 9.0-12.0 [facility] Comment on above: Performed By: #### L AB325, [id number] ####Phys Assistant: DOMENICA JARA ([phone])[facility] ([facility])[address] [place] [address] PT Coag (Bld) [Time]on 02-28 INR Coag (PPP) [Relative time] 1.3 {INR} High 0.9 - 1.1 [facility] Progress Noteon 02-28-2025 Progress Note Normal [facility] Progress Note Normal [facility] Progress Note Normal [facility] Progress Note Normal [facility] aPTT Coag (Bld) [Time]on aPTT Coag (PPP) [Time] 47.7 s High 20.0 - 30.5 s [facility] 30on 02-27-2025 30 Normal [facility] 30 Normal [facility] [id number] 02-27-2025 [id number] Normal [facility] APTTon 02-27-2025 aPTT Coag (Bld) [Time] 55.6 s High 20.0-30.5 [facility] Comment on above: Result Comment: ARPAN Kaplan COMMENTS:NOTE: The therapeutic time for Heparin anticoagulation, based on Xa activity inhibition, is an APTT of 46-80 seconds. Performed By: #### L AB325, [id number] ####Phys Assistant: DOMENICA JARA ([id number])[facility] ([facility])[address] [place] [address] Bacteria identified Cx Nom ( Bld)on 02-27-2025 Interpretation and review of laboratory results Normal [facility] Interpretation and review of laboratory results Normal [facility] CBC (HEMOGRAM)on 02-27-2025 Erythrocyte distribution width (RBC) [Ratio] 19.5 % High 11.5-15.0 [facility] Comment on above: Performed By: #### L [id number] ####Phys Assistant: DOMENICA JARA ([id number])[facility] ([facility])[address] [place] [address] Hematocrit (Bld) [Volume fraction] 28.8 % Low 40.0-52.0 [facility] Comment on above: Performed By: #### L [id number] ####Phys Assistant: DOMENICA JARA ([id number])[facility])[address] [place] [address] Hemoglobin (Bld) [Mass/Vol] 8.6 g/dL Low 13.0-18.0 [facility] Comment on above: Performed By: #### L [id number] ####Phys Assistant: DOMENICA JARA ([id number])[facility])[address] [place] [address] MCH (RBC) [Entitic mass] 28.7 pg Normal 26.0-34.0 [facility] Comment on above: Performed By: #### L [id number] ####Phys Assistant: DOMENICA JARA ([id number])[facility] ([facility])[address] [place] [address] MCHC 29.9 % Low 30.5-36.0 [facility] Comment on above: Performed By: #### L [id number] ####Phys Assistant: DOMENICA JARA ([id number])[facility])[address] [place] [address] MCV (RBC) [Entitic vol] 96.0 fL Normal 77.0-99.0 [facility] Comment on above: Performed By: #### L [id number] ####Phys Assistant: DOMENICA JARA ([phone])[facility] ([facility])[address] [place] [address] Platelet mean volume (Bld) [Entitic vol] 8.9 fL Low 9.0-12.7 [facility] Comment on above: Performed By: #### L AB294 ####Phys Assistant: DOMENICA JARA ([id number])[facility])[address] [place] [address] Platelets (Bld) [#/Vol] 302 10*3/uL Normal 140-440 [facility] Comment on above: Performed By: #### L [id number] ####Phys Assistant: DOMENICA JARA ([id number])[facility])[address] [place] [address] RBC (Bld) [#/Vol] 3.00 10*6/uL Low 4.40-5.90 [facility] Comment on above: Performed By: #### L [id number] ####Phys Assistant: DOMENICA JARA ([id number])[facility])[address] [place] [address] WBC (Bld) [#/Vol] 7.9 10*3/uL Normal 3.6-10.7 [facility] Comment on above: Performed By: #### L [id number] ####Phys Assistant: DOMENICA JARA ([id number])[facility])[address] [place] [address] CBC panel Auto (Bld)Ordered By: Brandy Ross on 02-27-2025 Erythrocyte distribution width (RBC) [Ratio] 19.5 % High 11.5 - 15.0 % [facility] Hematocrit (Bld) [Volume fraction] 28.8 % Low 40.0 - 52.0 % [facility] Hemoglobin (Bld) [Mass/Vol] 8.6 g/dL Low 13.0 - 18.0 g/dL [facility] Interpretation and review of laboratory results Abnormal [facility] MCH (RBC) [Entitic mass] 28.7 pg 26. 0 - 34.0 pg [facility] MCHC (RBC) [Mass/Vol] 29.9 % Low 30.5 - 36.0 % [facility] MCV (RBC) [Entitic vol] 96 fL 77.0 - 99.0 fL [facility] Platelet mean volume (Bld) [Entitic vol] 8.9 fL Low 9.0 - 12.7 fL [facility] Platelets (Bld) [#/Vol] 302 10*3/uL 140 - 440 10*3/uL [facility] RBC (Bld) [#/Vol] 3 10*6/uL Low 4.40 - 5.9 0 10*6/uL [facility] WBC (Bld) [#/Vol] 7.9 10*3/uL 3.6 - 10.7 10*3/uL [facility] ECG 12-LEADon 02-27-2025 ECG 12-LEAD IMPRESSION: Sinus rhythm Left atrial enlargement RBBB and LPFB Abnrm T, consider ischemia, anterolateral lds Compared to ECG 01/19/2025 06:31:48 Prolonged QT interval no longer present Electronically Signed On 02-27-2025 16:08:17 EDT by Ochoa Guido Normal [facility] Laboratory - Coagulationon 0 02-27-2025 PT Coag (Bld) [Time] 13.7 s High 9.0 - 12.0 s [facility] Laboratory - Microbiology an d Antimicrobial susceptibilityon 02-27-2025 Bacteria identified Cx Nom (Bld) No growth at [address] [facility] Bacteria identified Cx Nom (Bld) No growth at [address] [facility] No Panel InformationOrdered By: Ochoa Guido on 02-27-[address] [facility] Work Phone: TX Interval [address] [facility] Work Phone: QRS [place] [address] [facility] Work Phone: QRSD Interval 124 ms [facility] h Work Phone: QT Interval [address] [facility] Work Phone: QTC Interval [address] [facility] Work Phone: T Wave Zwol[place] [address] [facility] Work Phone: [facility] Work Phone: No Panel Informationon 02-27 CV EPIPHANY [facility] Interpretation and review of laboratory results Abnormal [facility] Nursing Noteon 02-27-2025 Nursing Note Normal [facility] Nursing Note Normal [facility] PROTHROMBIN TIMEon INR Coag (PPP) [Relative time] 1.3 {INR} High 0.9-1.1 [facility] Comment on above: Result Comment: Vaughn mmended [...] Myocardial Infarction Performed By: #### Tameka AB325, [id number] ####Phys Assistant: DOMENICA JARA ([id number])[address] PT Coag (PPP) [Time] 13.7 s High 9.0-12.0 [facility] Comment on above: Performed By: #### Tameka AB325, [id number] ####Phys Assistant: DOMENICA JARA ([id number])[address] PT Coag (Bld) [Time]on 02-27 INR Coag (PPP) [Relative time] 1.3 {INR} High 0.9 - 1.1 [facility] Progress Noteon 02-27-2025 Progress [facility] Progress Note Normal [facility] Progress Note Normal [facility] Progress Note Normal [facility] Progress Note Normal [facility] Vital signsOrdered By: Ochoa Guido on 02-27-2025 Heart rate 80 /min bpm [facility] Work Phone: aPTT Coag (Bld) [Time]on aPTT Coag (PPP) [Time] 55.6 s High 20.0 - 30.5 s [facility] 30on 02-26-2025 30 Normal [facility] [id number] 02-26-2025 [id number] Normal [facility] [id number] 02-26-2025 [id number] Getting updated therapy notes. Want to skill him at [facility]. Started on IV antibiotics for aspiration pneumonia. Continues on a heparin gtt. . [facility] [phone] Updated notes sent to [facility] via [facility] per [facility] request. Await review and response regarding ability to accept. TCC notified. [facility] 36on 02-26-2025 36 Normal [facility] CBC W/Diff, Automatedon Absolute Neut Normal 2.0-7.7 [facility] Comment on above: Order Comment: 412.2 Result Comment: KIMBER ENT DISCHARGED Performed By: #### L 100.0100, L500.4050, L300.3900 #### [facility] [address] [place], [address] HCT Normal 40-54 [facility] Comment on above: Order Comment: 412.2 Result Comment: KIMBER ENT DISCHARGED Performed By: #### L 100.0100, L500.4050, L300.3900 #### [facility] [address] [place], [address] HGB Normal 13.0-16.5 [facility] Comment on above: Order Comment: 412.2 Result Comment: KIMBER ENT DISCHARGED Performed By: #### L 100.0100, L500.4050, [id number] #### [facility] [address] [place], [address] MCH Normal 27.0-32.0 [facility] Comment on above: Order Comment: 412.2 Result Comment: KIMBER ENT DISCHARGED Performed By: #### L 100.0100, L500.4050, L300.3900 #### [facility] [address] [place], [address] MCHC Normal 32-36 [facility] Comment on above: Order Comment: 412.2 Result Comment: KIMBER ENT DISCHARGED Performed By: #### L 100.0100, L500.4050, [id number] #### [facility] [address] [place], [address] MCV Normal 80-94 [facility] Comment on above: Order Comment: 412.2 Result Comment: KIMBER ENT DISCHARGED Performed By: #### L 100.0100, L500.4050, [id number] #### [facility] [address] [place] [place], [address] NEUT% Normal 47-70 [facility] Comment on above: Order Comment: 412.2 Result Comment: KIMBER ENT DISCHARGED Performed By: #### L 100.0100, L500.4050, [id number] #### [facility] [address] [place], [address] PLT Normal 150-450 [facility] Comment on above: Order Comment: 412.2 Result Comment: KIMBER ENT DISCHARGED Performed By: #### L 100.0100, L500.4050, L300.3900 #### [facility] [address] [place], [address] RBC Normal 4.6-6.2 [facility] Comment on above: Order Comment: 412.2 Result Comment: KIMBER ENT DISCHARGED Performed By: #### L 100.0100, L500.4050, L300.3900 #### [facility] [address] [place], [address] RDW CV Normal 11.6-14.6 [facility] Comment on above: Order Comment: 412.2 Result Comment: KIMBER ENT DISCHARGED Performed By: #### L 100.0100, L500.4050, [id number] #### [facility] [address] [place], [address] RDW SD Normal 35.1-43.9 [facility] Comment on above: Order Comment: 412.2 Result Comment: KIMBER ENT DISCHARGED Performed By: #### L 100.0100, L500.4050, [id number] #### [facility] [address] [place], [address] WBC Normal 4.4-11.0 [facility] Comment on above: Order Comment: 412.2 Result Comment: KIMBER ENT DISCHARGED Performed By: #### L 100.0100, L500.4050, L300.3900 #### [facility] [address] [place], [address] Comprehensive Metabolic Prof ilon 02-26-2025 ALB Normal 3.5-5.0 [facility] Comment on above: Order Comment: 412.2 Result Comment: KIMBER ENT DISCHARGED Performed By: #### L 100.0100, L500.4050, L300.3900 #### [facility] [address] [place], [address] ALK PHOS Normal 40-129 [facility] Comment on above: Order Comment: 412.2 Result Comment: KIMBER ENT DISCHARGED Performed By: #### L 100.0100, L500.4050, [id number] #### [facility] [address] [place], [address] ALT Normal <=46 [facility] Comment on above: Order Comment: 412.2 Result Comment: KIMBER ENT DISCHARGED Performed By: #### L 100.0100, L500.4050, L300.3900 #### [facility] [address] [place], [address] AST Normal <=37 [facility] Comment on above: Order Comment: 412.2 Result Comment: KIMBER ENT DISCHARGED Performed By: #### L 100.0100, L500.4050, [id number] #### [facility] [address] [place], [address] BUN Normal 4-19 [facility] Comment on above: Order Comment: 412.2 Result Comment: KIMBER ENT DISCHARGED Performed By: #### L 100.0100, L500.4050, L300.3900 #### [facility] [address] [place], [address] BUN/CRE Normal 10-20 [facility] Comment on above: Order Comment: 412.2 Result Comment: KIMBER ENT DISCHARGED Performed By: #### L 100.0100, L500.4050, L300.3900 #### [facility] [address] [place], [address] Calcium Normal 7.6-11.0 [facility] Comment on above: Order Comment: 412.2 Result Comment: KIMBER ENT DISCHARGED Performed By: #### L 100.0100, L500.4050, L300.3900 #### [facility] [address] [place], [address] CL Normal 98-108 [facility] Comment on above: Order Comment: 412.2 Result Comment: KIMBER ENT DISCHARGED Performed By: #### L 100.0100, L500.4050, L300.3900 #### [facility] [address] [place], [address] CO2 Normal 21.0-32.0 [facility] Comment on above: Order Comment: 412.2 Result Comment: KIMBER ENT DISCHARGED Performed By: #### L 100.0100, L500.4050, L300.3900 #### [facility] [address] [place], [address] CREAT,SERUM Normal 0.70-1.20 [facility] Comment on above: Order Comment: 412.2 Result Comment: KIMBER ENT DISCHARGED Performed By: #### L 100.0100, L500.4050, L300.3900 #### [facility] [address] [place], [address] eGFR Normal >60 [facility] Comment on above: Order Comment: 412.2 Result Comment: KIMBER ENT DISCHARGED Performed By: #### L 100.0100, L500.4050, L300.3900 #### [facility] [address] [place], [address] GAP Normal 5-15 [facility] Comment on above: Order Comment: 412.2 Result Comment: KIMBER ENT DISCHARGED Performed By: #### L 100.0100, L500.4050, L300.3900 #### [facility] [address] [place], [address] GLU Normal 70-99 [facility] Comment on above: Order Comment: 412.2 Result Comment: KIMBER ENT DISCHARGED Performed By: #### L 100.0100, L500.4050, L300.3900 #### [facility] [address] [place], [address] Potassium Normal 3.3-5.1 [facility] Comment on above: Order Comment: 412.2 Result Comment: KIMBER ENT DISCHARGED Performed By: #### L 100.0100, L500.4050, L300.3900 #### [facility] [address] [place], [address] T BILI Normal 0.00-1.30 [facility] Comment on above: Order Comment: 412.2 Result Comment: KIMBER ENT DISCHARGED Performed By: #### L 100.0100, L500.4050, L300.3900 #### [facility] [address] [place], [address] T PROT Normal 5.9-8.4 [facility] Comment on above: Order Comment: 412.2 Result Comment: KIMBER ENT DISCHARGED Performed By: #### L 100.0100, L500.4050, L300.3900 #### [facility] [address] [place], [address] Comprehensive Metabolic Profil Normal 133-145 [facility] Comment on above: Order Comment: 412.2 Result Comment: KIMBER ENT DISCHARGED Performed By: #### L 100.0100, L500.4050, L300.3900 #### [facility] [place], [address] HIGH SENSITIVITY TROPONIN, S ERIAL, SECOND TESTon 02-26-2025 2H TROPONIN HS (SERIAL 2ND TROPONIN) 80 ng/L High <=35 [facility] Comment on above: Result Comment: [...] 3rd serial troponin Performed By: #### L [id number] ####Phys Assistant: DOMENICA JARA ([phone])[facility] ([employer] (formerly [employer])[facility])[address] [place] [address] HIGH SENSITIVITY TROPONIN, S ERIAL, THIRD TESTon 02-26-2025 4H TROPONIN HS (SERIAL 3RD TROPONIN) 75 ng/L High <=35 [facility] Comment on above: Result Comment: 4h t [...] valuerequires further evaluation. Performed By: #### L [id number] ####Phys Assistant: DOMENICA JARA ([phone])[facility] ([facility])[address] [place] [address] Laboratory - Coagulationon 0 02-26-2025 PT Coag (Bld) [Time] 13.5 s High 9.0 - 12.0 s [facility] No Panel Informationon 02-26 4h Troponin HS (Serial 3rd Troponin) 75 ng/L High [facility] ng/L [facility] Interpretation and review of laboratory results Abnormal [facility] 2h Troponin HS (Serial 2nd Troponin) 80 ng/L High [facility] - 35 ng/L [facility] Interpretation and review of laboratory results Abnormal [facility] Interpretation and review of laboratory results Abnormal [facility] Troponin HS Serial Baseline 84 ng/L High NINF - 35 ng/L [facility] Interpretation and review of laboratory results Abnormal [facility] PT Coag (Bld) [Time]on 02-26 INR Coag (PPP) [Relative time] 1.3 {INR} High 0.9 - 1.1 [facility] Progress Noteon 02-26-2025 Progress Note Normal [facility] Progress Note Normal [facility] Progress Note Normal [facility] Progress Note Normal [facility] Progress Note Normal [facility] Progress Note Normal [facility] Prothrombin Time w/INRon INR Normal [facility] Comment on above: Order Comment: 412.2 Result Comment: KIMBER ENT DISCHARGED Performed By: #### L 100.0100, L500.4050, L300.3900 #### [facility] [address] [place], [address] PROTIME Normal 11.7-14.9 [facility] Comment on above: Order Comment: 412.2 Result Comment: KIMBER ENT DISCHARGED Performed By: #### L 100.0100, L500.4050, L300.3900 #### [facility] [address] [place], [address] aPTT Coag (Bld) [Time]on aPTT Coag (PPP) [Time] 48.2 s High 20.0 - 30.5 s [facility] 30on 02-25-2025 30 Normal [facility] 30 Normal [facility] APTTon 02-25-2025 aPTT Coag (Bld) [Time] 48.2 s High 20.0-30.5 [facility] Comment on above: Result Comment: ARPAN Kaplan COMMENTS:NOTE: The therapeutic time for Heparin anticoagulation, based on Xa activity inhibition, is an APTT of 46-80 seconds. Performed By: #### L AB325, [id number] ####Phys Assistant: DOMENICA JARA ([phone])[facility])[address] [place] [address] aPTT Coag (Bld) [Time] 49.5 s High 20.0-30.5 [facility] Comment on above: Result Comment: ARPAN Kaplan COMMENTS:NOTE: The therapeutic time for Heparin anticoagulation, based on Xa activity inhibition, is an APTT of 46-80 seconds. Performed By: #### L AB320, [id number] ####Phys Assistant: DOMENICA JARA ([id number])[facility])[address] [place] [address] CBC (HEMOGRAM)on 02-25-2025 Erythrocyte distribution width (RBC) [Ratio] 19.9 % High 11.5-15.0 [facility] Comment on above: Performed By: #### L [id number] ####Phys Assistant: DOMENICA JARA ([phone])[facility])[address] [place] [address] Hematocrit (Bld) [Volume fraction] 24.1 % Low 40.0-52.0 [facility] Comment on above: Performed By: #### L [id number] ####Phys Assistant: DOMENICA JARA ([id number])[facility])[address] [place] [address] Hemoglobin (Bld) [Mass/Vol] 7.6 g/dL Low 13.0-18.0 [facility] Comment on above: Performed By: #### L [id number] ####Phys Assistant: DOMENICA JARA ([phone])[facility])[address] [place] [address] MCH (RBC) [Entitic mass] 29.3 pg Normal 26.0-34.0 [facility] Comment on above: Performed By: #### L [id number] ####Phys Assistant: DOMENICA JARA ([phone])[facility])[address] [place] [address] MCHC 31.5 % Normal 30.5-36.0 [facility] Comment on above: Performed By: #### L [id number] ####Phys Assistant: DOMENICA JARA ([phone])[facility] ([facility])[address] [place] [address] MCV (RBC) [Entitic vol] 93.1 fL Normal 77.0-99.0 S [facility] Comment on above: Performed By: #### L AB294 ####Phys Assistant: DOMENICA JARA ([phone])[facility] ([facility])[address] [place] [address] Platelet mean volume (Bld) [Entitic vol] 8.9 fL Low 9.0-12.7 [facility] Comment on above: Performed By: #### L [id number] ####Phys Assistant: DOMENICA JARA ([phone])[facility] ([facility])[address] [place] [address] Platelets (Bld) [#/Vol] 280 10*3/uL Normal 140-440 [facility] Comment on above: Performed By: #### L AB294 ####Phys Assistant: DOMENICA JARA ([id number])[facility] ([facility])[address] [place] [address] RBC (Bld) [#/Vol] 2.59 10*6/uL Low 4.40-5.90 [facility] Comment on above: Performed By: #### L AB294 ####Phys Assistant: DOMENICA JARA ([id number])[facility] ([facility])[address] [place] [address] WBC (Bld) [#/Vol] 7.5 10*3/uL Normal 3.6-10.7 [facility] Comment on above: Performed By: #### L [id number] ####Phys Assistant: DOMENICA JARA ([phone])[facility])[address] [place] [address] CBC panel Auto (Bld)on 02-25 Erythrocyte distribution width (RBC) [Ratio] 19.9 % High 11.5 - 15.0 % [facility] Hematocrit (Bld) [Volume fraction] 24.1 % Low 40.0 - 52.0 % [facility] Hemoglobin (Bld) [Mass/Vol] 7.6 g/dL Low 13.0 - 18.0 g/dL [facility] Interpretation and review of laboratory results Abnormal [facility] MCH (RBC) [Entitic mass] 29.3 pg 26. 0 - 34.0 pg [facility] MCHC (RBC) [Mass/Vol] 31.5 % 30.5 - 36.0 % [facility] MCV (RBC) [Entitic vol] 93.1 fL 77.0 - 99.0 fL [facility] Platelet mean volume (Bld) [Entitic vol] 8.9 fL Low 9.0 - 12.7 fL [facility] Platelets (Bld) [#/Vol] 280 10*3/uL 140 - 440 10*3/uL [facility] RBC (Bld) [#/Vol] 2.59 10*6/uL Low 4.40 - 5.9 0 10*6/uL [facility] WBC (Bld) [#/Vol] 7.5 10*3/uL 3.6 - 10.7 10*3/uL [facility] HIGH SENSITIVITY TROPONIN, S ERIAL BASELINEon 02-25-2025 TROPONIN HS SERIAL BASELINE 84 ng/L High <=35 [facility] Comment on above: Result Comment: In i ndividuals presenting with symptoms > 2h, a baseline troponin <= 5 ng/L suggests acutecardiac injury is unlikely and further serial testing is generally not indicated. Performed By: #### L [id number] ####Phys Assistant: DOMENICA JARA ([id number])[facility] ([address] Laboratory - Coagulationon 0 02-25-2025 PT Coag (Bld) [Time] 13.7 s High 9.0 - 12.0 s [facility] No Panel Informationon 02-25 Interpretation and review of laboratory results Abnormal [facility] Nursing Noteon 02-25-2025 Nursing Note 2- Notified Dr. Hathaway of patient complaint of SOB and worsening chest pain that he described as dull and tight. Vitals WDL. STAT EKG ordered, patient given Nitrostat, and troponin sent down. 9900- Notified GLAZIER HELPER to assess the patient. Normal [facility] PROTHROMBIN TIMEon 02-25- 5 INR Coag (PPP) [Relative time] 1.3 {INR} High 0.9-1.1 [facility] Comment on above: Result Comment: Vaughn mmended [...] Myocardial Infarction Performed By: #### Tameka AB325, [id number] ####Phys Assistant: DOMENICA JARA ([id number])[address] PT Coag (PPP) [Time] 13.5 s High 9.0-12.0 [facility] Comment on above: Performed By: #### Tameka AB325, [id number] ####Phys Assistant: DOMENICA JARA ([id number])[address] INR Coag (PPP) [Relative time] 1.3 {INR} High 0.9-1.1 [facility] Comment on above: Result Comment: Vaughn mmended [...] Myocardial Infarction Performed By: #### L AB320, [id number] ####Phys Assistant: DOMENICA JARA ([phone])[address] PT Coag (PPP) [Time] 13.7 s High 9.0-12.0 [facility] Comment on above: Performed By: #### L AB320, [id number] ####Phys Assistant: DOMENICA JARA ([phone])[facility])[address] [place] [address] PT Coag (Bld) [Time]on 02-25 INR Coag (PPP) [Relative time] 1.3 {INR} High 0.9 - 1.1 [facility] Progress Noteon 02-25-2025 Progress Note [facility] Progress Note Normal [facility] Progress Note Normal [facility] Progress Note Normal [facility] aPTT Coag (Bld) [Time]on aPTT Coag (PPP) [Time] 49.5 s High 20.0 - 30.5 s [facility] 30on 02-24-2025 30 Normal [facility] 30 Normal [facility] APTTon 02-24-2025 aPTT Coag (Bld) [Time] 54.7 s High 20.0-30.5 [facility] Comment on above: Result Comment: ARPAN Kaplan COMMENTS:NOTE: The therapeutic time for Heparin anticoagulation, based on Xa activity inhibition, is an APTT of 46-80 seconds. Performed By: #### L AB325 ####Phys Assistant: DOMENICA JARA ([id number])[facility] ([facility])[address] [place] [address] aPTT Coag (Bld) [Time] 61.0 s High 20.0-30.5 [facility] Comment on above: Result Comment: ARPAN Kaplan COMMENTS:NOTE: The therapeutic time for Heparin anticoagulation, based on Xa activity inhibition, is an APTT of 46-80 seconds. Performed By: #### L AB320, [id number] ####Phys Assistant: DOMENICA JARA ([phone])[facility] ([facility])[address] [place] [address] Bacteria identified Aer cx N om (Lower resp)Ordered By: Corey Pabon on 02-24-2025 Gram Stain Result Many Polymorphonuclear leukocytes per low power field Abnormal [facility] Gram Stain Result Few Epithelial cells per low power field Abnormal [facility] Gram Stain Result Positive Abnormal [facility] Gram Stain Result Negative Abnormal [facility] Gram Stain Result Few Yeast Abnormal [facility] Interpretation and review of laboratory results Abnormal [facility] HBV surface Ab IA Qnon 02-24 [facility] HBV surface Ag IA Qlon 02-24 Interpretation and review of laboratory results Normal [facility] HEPATITIS B SURFACE ANTIBODY on 02-24-2025 HEPATITIS B VIRUS SURFACE AB <8.0 Normal [facility] Comment on above: Result Comment: ORDE R COMMENTS:Interpretation:<8.0 Non-Reactive8.0-11.9 Equivocal>= 12.0 Ab DetectedNote: If an equivocal result is interpreted, an antibody status is unable to be determined. Collect new specimen if clinically indicated. Performed By: #### L AB472, [id number] ####Phys Assistant: DOMENICA JARA ([id number])[facility] [place] [address] HEPATITIS B SURFACE ANTIGENo n 02-24-2025 HEPATITIS B VIRUS SURFACE AG Not detected Normal Not Detected [facility] Comment on above: Performed By: #### Tameka AB472, [id number] ####Phys Assistant: DOMENICA JARA ([id number])[facility] [place] [address] Laboratory - Coagulationon 0 02-24-2025 PT Coag (Bld) [Time] 13.5 s High 9.0 - 12.0 s [facility] Laboratory - Drug toxicology on 02-24-2025 Vancomycin trough [Mass/Vol] 23.4 ug/mL [facility] Laboratory - Microbiology an d Antimicrobial susceptibilityon 02-24-2025 HBV surface Ab IA Qn mIU/mL [facility] HBV surface Ag IA Ql Not detected Not Detected [facility] Laboratory - Microbiology an d Antimicrobial susceptibilityOrdered By: Corey Pabon on 02-24-2025 Bacteria identified Aer cx Nom (Lower resp) Few respiratory ila present. [facility] Bacteria identified Aer cx Nom (Lower resp) Moderate Klebsiella oxytoca Abnormal [facility] No Panel Informationon 02-24 [facility] Interpretation and review of laboratory results Abnormal [facility] Nursing Noteon 02-24-2025 Nursing Note Normal [facility] PROTHROMBIN TIMEon INR Coag (PPP) [Relative time] 1.3 {INR} High 0.9-1.1 [facility] Comment on above: Result Comment: Vaughn mmended [...] Myocardial Infarction Performed By: #### Tameka AB320, [id number] ####Phys Assistant: DOMENICA JARA ([id number])[facility] ([facility])[address] [place] [address] PT Coag (PPP) [Time] 13.5 s High 9.0-12.0 [facility] Comment on above: Performed By: #### Tameka AB320, [id number] ####Phys Assistant: DOMENICA JARA ([id number])[facility] [place] [address] PT Coag (Bld) [Time]on 02-24 INR Coag (PPP) [Relative time] 1.3 {INR} High 0.9 - 1.1 [facility] Progress Noteon 02-24-2025 Progress Note Vancomycin therapy has been discontinued by Hussain Quintana on 02/24. Thank you for the consult. Pharmacy signing off for vancomycin dosing. Marissa Iglesias, PharmD, Date: 02/24/25 Time: 4:08 PM Normal [facility] Progress Note [facility] Progress Note Normal [facility] Progress Note Normal [facility] Progress Note Normal [facility] VANCOMYCIN, AUC TIMED DOSING on 02-24-2025 VANCOMYCIN, AUC 23.4 ug/mL Normal [facility] Comment on above: Result Comment: ARPAN Kaplan COMMENTS:Please draw random level at least >4 hours after the end of hemodialysis.Toxicity is seen at concentrations >80-100 ug/mLTherapeutic (Peak) range: 20-40Therapeutic (Trough) range: 5-10 Performed By: #### L AB39 ####Phys Assistant: DOMENICA JARA ([id number])[facility] ([facility])[address] [place] [address] Vancomycin trough [Mass/Vol] on 02-24-2025 [facility] aPTT Coag (Bld) [Time]on aPTT Coag (PPP) [Time] 54.7 s High 20.0 - 30.5 s [facility] Interpretation and review of laboratory results Abnormal [facility] aPTT Coag (PPP) [Time] 61 s High 20.0 - 30.5 s [facility] [id number] 02-23-2025 [id number] Normal [facility] 36on 02-23-2025 36 Called LM to call back and schedule CT and hospital follow up with any ARMIN Normal [facility] 36 Hello, can we please schedule a 6-week CT scan for this patient and a follow-up appointment after this? Thank you Normal [facility] APTTon 02-23-2025 aPTT Coag (Bld) [Time] 49.3 s High 20.0-30.5 [facility] Comment on above: Result Comment: ARPAN Kaplan COMMENTS:NOTE: The therapeutic time for Heparin anticoagulation, based on Xa activity inhibition, is an APTT of 46-80 seconds. Performed By: #### L AB325, [id number] ####Phys Assistant: DOMENICA JARA ([id number])[facility] ([facility])[address] [place] [address] CBC (HEMOGRAM)on 02-23-2025 Erythrocyte distribution width (RBC) [Ratio] 19.7 % High 11.5-15.0 [facility] Comment on above: Performed By: #### L AB294 ####Phys Assistant: DOMENICA JARA ([id number])[facility])[address] [place] [address] Hematocrit (Bld) [Volume fraction] 27.9 % Low 40.0-52.0 [facility] Comment on above: Performed By: #### L AB294 ####Phys Assistant: DOMENICA JARA ([id number])[facility])[address] [place] [address] Hemoglobin (Bld) [Mass/Vol] 8.6 g/dL Low 13.0-18.0 [facility] Comment on above: Performed By: #### L AB294 ####Phys Assistant: DOMENICA JARA ([phone])[facility])[address] [place] [address] MCH (RBC) [Entitic mass] 28.7 pg Normal 26.0-34.0 [facility] Comment on above: Performed By: #### L AB294 ####Phys Assistant: DOMENICA JARA ([phone])[facility] ([facility])[address] [place] [address] MCHC 30.8 % Normal 30.5-36.0 [facility] Comment on above: Performed By: #### L AB294 ####Phys Assistant: DOMENICA JARA ([phone])[facility] ([facility])[address] [place] [address] MCV (RBC) [Entitic vol] 93.0 fL Normal 77.0-99.0 S [facility] Comment on above: Performed By: #### L AB294 ####Phys Assistant: DOMENICA JARA ([id number])[facility] ([facility])[address] [place] [address] Platelet mean volume (Bld) [Entitic vol] 8.9 fL Low 9.0-12.7 [facility] Comment on above: Performed By: #### L AB294 ####Phys Assistant: DOMENICA JARA ([id number])[facility])[address] [place] [address] [place] Platelets (Bld) [#/Vol] 316 10*3/uL Normal 140-440 [facility] Comment on above: Performed By: #### L AB294 ####Phys Assistant: DOMENICA JARA ([id number])[facility])[address] [place] [address] RBC (Bld) [#/Vol] 3.00 10*6/uL Low 4.40-5.90 [facility] Comment on above: Performed By: #### L AB294 ####Phys Assistant: DOMENICA JARA ([phone])[facility] ([facility])[address] [place] [address] WBC (Bld) [#/Vol] 8.6 10*3/uL Normal 3.6-10.7 [facility] Comment on above: Performed By: #### L AB294 ####Phys Assistant: DOMENICA JARA ([phone])[address] CBC panel Auto (Bld)on 02-23 Erythrocyte distribution width (RBC) [Ratio] 19.7 % High 11.5 - 15.0 % [facility] Hematocrit (Bld) [Volume fraction] 27.9 % Low 40.0 - 52.0 % [facility] Hemoglobin (Bld) [Mass/Vol] 8.6 g/dL Low 13.0 - 18.0 g/dL [facility] Interpretation and review of laboratory results Abnormal [facility] MCH (RBC) [Entitic mass] 28.7 pg 26. 0 - 34.0 pg [facility] MCHC (RBC) [Mass/Vol] 30.8 % 30.5 - 36.0 % [facility] MCV (RBC) [Entitic vol] 93 fL 77.0 - 99.0 fL [facility] Platelet mean volume (Bld) [Entitic vol] 8.9 fL Low 9.0 - 12.7 fL [facility] Platelets (Bld) [#/Vol] 316 10*3/uL 140 - 440 10*3/uL [facility] RBC (Bld) [#/Vol] 3 10*6/uL Low 4.40 - 5.9 0 10*6/uL [facility] WBC (Bld) [#/Vol] 8.6 10*3/uL 3.6 - 10.7 10*3/uL [facility] COMPREHENSIVE METABOLIC PANE Victor M 02-23-2025 Albumin [Mass/Vol] 1.9 g/dL Low 3.5-5.0 [facility] Comment on above: Performed By: #### Tameka ABAruna, LAB17, [id number] ####Phys Assistant: DOMENICA JARA ([id number])[facility] ([facility])[address] [place] [address] ALP [Catalytic activity/Vol] 136 U/L Normal 40-150 [facility] Comment on above: Performed By: #### Tameka GIMENEZ, LAB17, [id number] ####Phys Assistant: DOMENICA JARA ([id number])[facility] ([facility])[address] [place] [address] ALT [Catalytic activity/Vol] 10 U/L Normal <40 [facility] Comment on above: Performed By: #### Tameka ABAruna, LAB17, [id number] ####Phys Assistant: DOMENICA JARA ([id number])[facility] ([facility])[address] [place] [address] Anion gap [Moles/Vol] 11 mmol/L Normal 3-13 [facility] Comment on above: Performed By: #### Tameka ABAruna, LAB17, [id number] ####Phys Assistant: DOMENICA JARA ([phone])[facility] ([facility])[address] [place] [address] AST [Catalytic activity/Vol] 37 U/L High <34 [facility] Comment on above: Performed By: #### Tameka ABAruna, LAB17, [id number] ####Phys Assistant: DOMENICA JARA ([id number])[facility])[address] [place] [address] Bilirubin [Mass/Vol] 0.6 mg/dL Normal <1.2 [facility] Comment on above: Performed By: #### Tameka ABAruna, LAB17, [id number] ####Phys Assistant: DOMENICA JARA ([phone])[facility] [place] [address] [place] Calcium [Mass/Vol] 9.2 mg/dL Normal 8.4-10.2 [facility] Comment on above: Performed By: #### L AB113, LAB17, [id number] ####Phys Assistant: DOMENICA JARA ([phone])[facility] [place] [address] [place] Chloride [Moles/Vol] 99 mmol/L Normal 98-107 [facility] Comment on above: Performed By: #### Tameka ABAruna, LAB17, [id number] ####Phys Assistant: DOMENICA JARA ([phone])[facility] [place] [address] CO2 [Moles/Vol] 25 mmol/L Normal 22-29 [facility] Comment on above: Performed By: #### Tameka GIMENEZ, LAB17, [id number] ####Phys Assistant: DOMENICA JARA ([id number])[facility] [place] [address] Creatinine [Mass/Vol] 2.78 mg/dL High 0.72-1.25 [facility] Comment on above: Performed By: #### Tameka ABAruna, LAB17, [id number] ####Phys Assistant: DOMENICA JARA ([phone])[facility] ([facility])[address] [place] [address] [place] GLOMERULAR FILTRATION RATE ML/MIN/1.73 SQ M.PREDICTED 25.4 mL/min/1.73m*2 Low >60.0 [facility] Comment on above: Result Comment: Calc ulation based on the Chronic Kidney Disease Epidemiology Collaboration (CKD-EPI) equation refit without adjustment for race Performed By: #### L ABAruna, LAB17, [id number] ####Phys Assistant: DOMENICA JARA ([id number])[facility] [place] [address] [place] Glucose [Mass/Vol] 110 mg/dL High 74-100 [facility] Comment on above: Performed By: #### L AB113, LAB17, [id number] ####Phys Assistant: DOMENICA JARA ([phone])[facility])[address] [place] [address] Potassium [Moles/Vol] 4.1 mmol/L Normal 3.5-5.1 [facility] Comment on above: Result Comment: [facility] potassium values may be up to 0.5 mmol/L lower than serum values. Performed By: #### L AB113, LAB17, [id number] ####Phys Assistant: DOMENICA JARA ([phone])[facility] ([facility])[address] [place] [address] Protein [Mass/Vol] 7.1 g/dL Normal 6.4-8.3 [facility] Comment on above: Performed By: #### Tameka ABAruna, LAB17, [id number] ####Phys Assistant: DOMENICA JARA ([phone])[facility])[address] [place] [address] Sodium [Moles/Vol] 135 mmol/L Low 136-145 [facility] Comment on above: Performed By: #### L ABAruna, LAB17, [id number] ####Phys Assistant: DOMENICA JARA ([phone])[facility])[address] [place] [address] Urea nitrogen [Mass/Vol] 21 mg/dL Normal 9-23 [facility] Comment on above: Performed By: #### L AB113, LAB17, [id number] ####Phys Assistant: DOMENICA JARA ([phone])[facility])[address] [place] [address] Comprehensive metabolic 1998 panelOrdered By: Jarred José on 02-23-2025 Albumin [Mass/Vol] 1.9 g/dL Low 3.5 - 5.0 g/dL [facility] ALP [Catalytic activity/Vol] 136 U/L 40 - 150 U/L [facility] ALT [Catalytic activity/Vol] 10 U/L NINF - 40 U/L [facility] Anion gap [Moles/Vol] 11 mmol/L 3 - 13 mmol/L [facility] AST [Catalytic activity/Vol] 37 U/L High NINF - 34 U/L [facility] Bilirubin [Mass/Vol] 0.6 mg/dL NINF - 1.2 mg/dL [facility] Calcium [Mass/Vol] 9.2 mg/dL 8.4 - 10. 2 mg/dL [facility] Chloride [Moles/Vol] 99 mmol/L 98 - 10 7 mmol/L [facility] CO2 [Moles/Vol] 25 mmol/L 22 - 29 mmol/L [facility] Creatinine [Mass/Vol] 2.78 mg/dL High 0.72 - 1.25 mg/dL [facility] GFR/1.73 sq M.predicted (S/P/Bld) [Vol rate/Area] 25.4 mL/min Low - PINF [facility] Glucose [Mass/Vol] 110 mg/dL High 74 - 100 mg/dL [facility] Interpretation and review of laboratory results Abnormal [facility] Potassium [Moles/Vol] 4.1 mmol/L 3.5 - 5.1 mmol/L [facility] Protein [Mass/Vol] 7.1 g/dL 6.4 - 8.3 g/dL [facility] Sodium [Moles/Vol] 135 mmol/L Low 136 - 145 mmol/L [facility] Urea nitrogen [Mass/Vol] 21 mg/dL 9 - 23 mg/d L [facility] Consulton 02-23-2025 Consult Normal [facility] Laboratory - Chemistry and C hemistry - challengeon 02-23-2025 Magnesium [Mass/Vol] 2 mg/dL 1.6 - 2 .6 mg/dL [facility] Laboratory - Coagulationon 0 02-23-2025 PT Coag (Bld) [Time] 14 s High 9.0 - 12.0 s [facility] MAGNESIUMon 02-23-2025 Magnesium [Mass/Vol] 2.0 mg/dL Normal 1.6-2.6 [facility] Comment on above: Result Comment: ARPAN Kaplan COMMENTS:Higher values can be expected in females during menses. Performed By: #### L AB113, LAB17, [id number] ####Phys Assistant: DOMENICA JARA ([phone])[facility] ([address] Magnesium [Mass/Vol]on 02-23 [facility] No Panel Informationon 02-23 Interpretation and review of laboratory results Normal [facility] Interpretation and review of laboratory results Abnormal [facility] Nursing Noteon 02-23-2025 Nursing Note Normal [facility] Nursing Note Normal [facility] PHOSPHORUSon 02-23-2025 Phosphate [Mass/Vol] 2.6 mg/dL Normal 2.3-4.7 [facility] Comment on above: Performed By: #### L AB113, LAB17, [id number] ####Phys Assistant: DOMENICA JARA ([phone])[facility])[address] [place] [address] PROTHROMBIN TIMEon INR Coag (PPP) [Relative time] 1.3 {INR} High 0.9-1.1 [facility] Comment on above: Result Comment: Vaughn mmended [...] Myocardial Infarction Performed By: #### Tameka AB325, [id number] ####Phys Assistant: DOMENICA JARA ([phone])[facility] ([facility])[address] [place] [address] PT Coag (PPP) [Time] 14.0 s High 9.0-12.0 [facility] Comment on above: Performed By: #### L [id number], [id number] ####Phys Assistant: DOMENICA JARA ([id number])[facility])[address] [place] [address] [place] PT Coag (Bld) [Time]on 02-23 INR Coag (PPP) [Relative time] 1.3 {INR} High 0.9 - 1.1 [facility] Phosphate [Moles/Vol]on 01-27 Phosphate [Mass/Vol] 2.6 mg/dL 2.3 - 4 .7 mg/dL [facility] 02-23-2025 [facility] Progress Note Normal [facility] Progress Note Normal [facility] Progress Note Normal [facility] Progress Note [facility] US Heart TransthoracicOrdere d By: Daryn Chowdary on 02-23-2025 Aortic valve Mean systole pressure gradient by US.doppler derived full Bernoulli 10 mmHg [facility] Work Phone: Aortic valve Orifice area by US 3.1 cm2 [facility] Work Phone: Aortic valve Peak systolic flow by US.doppler 1.4 m/s [facility] Work Phone: Ascending Aorta 3.5 cm [facility] Work Phone: Ascending Aorta Index 1.99 cm/m2 [facility] Work Phone: AV Area by Peak Velocity 1.[address] [facility] Work Phone: AV Area by VTI 1.5 cm2 [facility] Work Phone: AV AT 66.[address] [facility] Work Phone: AV Peak Gradient 20 mmHg [facility] Work Phone: AV Peak Velocity 2.3 m/s [facility] Work Phone: AV Velocity Ratio 0.39 [facility] Work Phone: AV VTI 39.[address] [facility] Work Phone: MALU/BSA Peak Velocity 0.7 cm2/m2 [facility] Work Phone: MALU/BSA VTI 0.9 cm2/m2 [facility] Work Phone: E/E' Lateral 21.43 [facility] Work Phone: E/E' Ratio (Averaged) 25.71 [facility] Work Phone: E/E' Septal 30 [facility] Work Phone: Est. RA Pressure 15 mmHg [facility] Work Phone: Fractional Shortening 2D 31 % 28 - 44 % [facility] Work Phone: Interpretation and review of laboratory results Abnormal [facility] Work Phone: IVC Diameter 2.[address] [facility] Work Phone: IVSd 1.6 cm Abnormal 0.6 - 1.[address] [facility] Work Phone: LA Diameter 3.[address] [facility] Work Phone: LA Size Index 1.76 cm/m2 [facility] Work Phone: LA Volume 2C 69 mL Abnormal 18 - [address] [facility] Work Phone: LA Volume 4C 84 mL Abnormal 18 - [address] [facility] Work Phone: LA Volume A/L 85 mL [facility] Work Phone: LA Volume BP 78 mL Abnormal 18 - [address] [facility] Work Phone: LA Volume Index 2C 39 mL/m2 Abnormal 16 - 34 mL/m2 [facility] Work Phone: LA Volume Index 4C 48 mL/m2 Abnormal 16 - 34 mL/m2 [facility] Work Phone: LA Volume Index A/L 48 mL/m2 16 - 34 mL/m2 [facility] Work Phone: LA Volume Index BP 44 ml/m2 Abnormal 16 - 34 ml/m2 [facility] Work Phone: LV E' Lateral Velocity 7 cm/s [facility] Work Phone: LV E' Septal Velocity 5 cm/s [facility] Work Phone: LV Mass 2D 201 g 88 - [address] [facility] Work Phone: LV Mass 2D Index 114.2 g/m2 49 - 115 g/m2 [facility] Work Phone: LV RWT Ratio 0.78 [facility] Work Phone: LVIDd 3.6 cm Abnormal 4.2 - 5.[address] [facility] Work Phone: LVIDd Index 2.05 cm/m2 [facility] Work Phone: LVIDs 2.[address] [facility] Work Phone: LVIDs Index 1.42 cm/m2 [facility] Work Phone: LVOT Cardiac Output 5.3 liter/minute [facility] Work Phone: LVOT Diameter [address] [facility] [employer]t h Work Phone: LVOT Mean Gradient [address] [facility] Work Phone: LVOT Peak Gradient [address] [facility] Work Phone: LVOT Peak Velocity 0.9 m/s [facility] Work Phone: LVOT Stroke Volume Index 33.4 mL/m2 [facility] Work Phone: LVOT SV 58.[address] [facility] Work Phone: LVOT VTI 18.[address] [facility] Work Phone: LVOT:AV VTI Index 0.48 [facility] Work Phone: LVPWd 1.4 cm Abnormal 0.6 - 1.[address] [facility] Work Phone: MV A Velocity 0.97 m/s [facility] Work Phone: MV Area by PHT [address] [facility] Work Phone: MV Area by VTI 1.[address] [facility] Work Phone: MV E Velocity 1.5 m/s [facility] Work Phone: MV [...] Work Phone: TR Peak Gradient 42 mmHg [facility] Work Phone: [facility] Work Phone: US Heart Transthoracicon [facility] aPTT Coag (Bld) [Time]on aPTT Coag (PPP) [Time] 49.3 s High 20.0 - 30.5 s [facility] 30on 02-22-2025 30 Normal [facility] [id number] 02-22-2025 [id number] Normal [facility] [id number] Updated notes sent to [facility] via [facility] per [facility] request. Await review and response regarding ability to accept. TCC notified. Normal [facility] APTTon 02-22-2025 aPTT Coag (Bld) [Time] 52.1 s High 20.0-30.5 [facility] Comment on above: Result Comment: ARPAN Kaplan COMMENTS:NOTE: The therapeutic time for Heparin anticoagulation, based on Xa activity inhibition, is an APTT of 46-80 seconds. Performed By: #### L AB325 ####Phys Assistant: DOMENICA JARA ([id number])[address] aPTT Coag (Bld) [Time] 54.9 s High 20.0-30.5 [facility] Comment on above: Result Comment: ARPAN Kaplan COMMENTS:NOTE: The therapeutic time for Heparin anticoagulation, based on Xa activity inhibition, is an APTT of 46-80 seconds. Performed By: #### L AB325, [id number] ####Phys Assistant: DOMENICA JARA ([id number])[address] BLOOD CULTUREon 02-22-2025 Bacteria identified Cx Nom (Bld) Normal [facility] Comment on above: Performed By: #### L [id number] ####Phys Assistant: DOMENICA [id number])[facility])[address] [place] [address] Bacteria identified Cx Nom (Bld) Normal [facility] Comment on above: Performed By: #### L [id number] ####Phys Assistant: DOMENICA JARA ([id number])[facility])[address] [place] [address] CBC (HEMOGRAM)on 02-22-2025 Erythrocyte distribution width (RBC) [Ratio] 19.4 % High 11.5-15.0 [facility] Comment on above: Performed By: #### L [id number] ####Phys Assistant: DOMENICA JARA ([phone])[facility])[address] [place] [address] Hematocrit (Bld) [Volume fraction] 24.5 % Low 40.0-52.0 [facility] Comment on above: Performed By: #### L [id number] ####Phys Assistant: DOMENICA JARA ([id number])[facility])[address] [place] [address] Hemoglobin (Bld) [Mass/Vol] 7.8 g/dL Low 13.0-18.0 [facility] Comment on above: Performed By: #### L [id number] ####Phys Assistant: DOMENICA JARA ([phone])[facility])[address] [place] [address] MCH (RBC) [Entitic mass] 29.0 pg Normal 26.0-34.0 [facility] Comment on above: Performed By: #### L [id number] ####Phys Assistant: DOMENICA JARA ([phone])[facility])[address] [place] [address] MCHC 31.8 % Normal 30.5-36.0 [facility] Comment on above: Performed By: #### L [id number] ####Phys Assistant: DOMENICA JARA ([id number])[facility])[address] [place] [address] MCV (RBC) [Entitic vol] 91.1 fL Normal 77.0-99.0 [facility] Comment on above: Performed By: #### L [id number] ####Phys Assistant: DOMENICA JARA ([id number])[facility] ([facility])[address] [place] [address] Platelet mean volume (Bld) [Entitic vol] 8.9 fL Low 9.0-12.7 [facility] Comment on above: Performed By: #### L [id number] ####Phys Assistant: DOMENICA JARA ([id number])[facility] ([facility])[address] [place] [address] Platelets (Bld) [#/Vol] 282 10*3/uL Normal 140-440 [facility] Comment on above: Performed By: #### L [id number] ####Phys Assistant: DOMENICA JARA ([id number])[facility] ([facility])[address] [place] [address] RBC (Bld) [#/Vol] 2.69 10*6/uL Low 4.40-5.90 [facility] Comment on above: Performed By: #### L [id number] ####Phys Assistant: DOMENICA JARA ([id number])[facility] ([facility])[address] [place] [address] WBC (Bld) [#/Vol] 9.0 10*3/uL Normal 3.6-10.7 [facility] Comment on above: Performed By: #### L [id number] ####Phys Assistant: DOMENICA JARA ([id number])[facility] ([facility])[address] [place] [address] CBC panel Auto (Bld)on 02-22 Erythrocyte distribution width (RBC) [Ratio] 19.4 % High 11.5 - 15.0 % [facility] Hematocrit (Bld) [Volume fraction] 24.5 % Low 40.0 - 52.0 % [facility] Hemoglobin (Bld) [Mass/Vol] 7.8 g/dL Low 13.0 - 18.0 g/dL [facility] Interpretation and review of laboratory results Abnormal [facility] MCH (RBC) [Entitic mass] 29 pg 26. 0 - 34.0 pg [facility] MCHC (RBC) [Mass/Vol] 31.8 % 30.5 - 36.0 % [facility] MCV (RBC) [Entitic vol] 91.1 fL 77.0 - 99.0 fL [facility] Platelet mean volume (Bld) [Entitic vol] 8.9 fL Low 9.0 - 12.7 fL [facility] Platelets (Bld) [#/Vol] 282 10*3/uL 140 - 440 10*3/uL [facility] RBC (Bld) [#/Vol] 2.69 10*6/uL Low 4.40 - 5.9 0 10*6/uL [facility] WBC (Bld) [#/Vol] 9 10*3/uL 3.6 - 10.7 10*3/uL [facility] COMPREHENSIVE METABOLIC PANE Victor M 02-22-2025 Albumin [Mass/Vol] 1.8 g/dL Low 3.5-5.0 [facility] Comment on above: Performed By: #### L AB103, LAB17, [id number] ####Phys Assistant: DOMENICA JARA ([id number])[address] ALP [Catalytic activity/Vol] 120 U/L Normal 40-150 [facility] Comment on above: Performed By: #### Tameka AB103, LAB17, [id number] ####Phys Assistant: DOMENICA JARA ([id number])[facility])[address] [place] [address] ALT [Catalytic activity/Vol] 9 U/L Normal <40 [facility] Comment on above: Performed By: #### L AB103, LAB17, [id number] ####Phys Assistant: DOMENICA JARA ([id number])[facility])[address] [place] [address] Anion gap [Moles/Vol] 13 mmol/L Normal 3-13 [facility] Comment on above: Performed By: #### L AB103, LAB17, [id number] ####Phys Assistant: DOMENICA JARA ([id number])[facility] ([facility])[address] [place] [address] [place] AST [Catalytic activity/Vol] 35 U/L High <34 [facility] Comment on above: Performed By: #### L AB103, LAB17, [id number] ####Phys Assistant: DOMENICA JARA ([id number])[facility] [place] [address] Bilirubin [Mass/Vol] 0.6 mg/dL Normal <1.2 [facility] Comment on above: Performed By: #### L AB103, LAB17, [id number] ####Phys Assistant: DOMENICA JARA ([id number])[facility] ([facility])[address] [place] [address] Calcium [Mass/Vol] 9.2 mg/dL Normal 8.4-10.2 [facility] Comment on above: Performed By: #### Tameka KWONG, LAB17, [id number] ####Phys Assistant: DOMENICA JARA ([id number])[facility] [place] [address] [place] Chloride [Moles/Vol] 94 mmol/L Low 98-107 [facility] Comment on above: Performed By: #### Tameka AB103, LAB17, [id number] ####Phys Assistant: DOMENICA JARA ([id number])[facility] [place] [address] [place] CO2 [Moles/Vol] 25 mmol/L Normal 22-29 [facility] Comment on above: Performed By: #### L AB103, LAB17, [id number] ####Phys Assistant: DOMENICA JARA ([id number])[facility] [place] [address] [place] Creatinine [Mass/Vol] 3.99 mg/dL High 0.72-1.25 [facility] Comment on above: Performed By: #### L AB103, LAB17, [id number] ####Phys Assistant: DOMENICA JARA ([id number])[facility] ([address] GLOMERULAR FILTRATION RATE ML/MIN/1.73 SQ M.PREDICTED 16.5 mL/min/1.73m*2 Low >60.0 [facility] Comment on above: Result Comment: Calc ulation based on the Chronic Kidney Disease Epidemiology Collaboration (CKD-EPI) equation refit without adjustment for race Performed By: #### Tameka ABRadha, LAB17, [id number] ####Phys Assistant: DOMENICA JARA ([id number])[address] Glucose [Mass/Vol] 121 mg/dL High 74-100 [facility] Comment on above: Performed By: #### Tameka KWONG, LAB17, [id number] ####Phys Assistant: DOMENICA JARA ([id number])[address] Potassium [Moles/Vol] 3.4 mmol/L Low 3.5-5.1 [facility] Comment on above: Result Comment: [facility] potassium values may be up to 0.5 mmol/L lower than serum values. Performed By: #### Tameka KWONG, LAB17, [id number] ####Phys Assistant: DOMENICA JARA ([id number])[address] Protein [Mass/Vol] 6.7 g/dL Normal 6.4-8.3 [facility] Comment on above: Performed By: #### Tameka KWONG, LAB17, [id number] ####Phys Assistant: DOMENICA JARA ([id number])[place] [address] [place] Sodium [Moles/Vol] 132 mmol/L Low 136-145 [facility] Comment on above: Performed By: #### Tameka KWONG, LAB17, [id number] ####Phys Assistant: DOMENICA JARA ([id number])[place] [address] [place] Urea nitrogen [Mass/Vol] 36 mg/dL High 9-23 [facility] Comment on above: Performed By: #### L AB103, LAB17, [id number] ####Phys Assistant: DOMENICA JARA ([id number])[facility] ([facility] Comprehensive metabolic 1998 panelOrdered By: Michelle Olmstead on 02-22-2025 Albumin [Mass/Vol] 1.8 g/dL Low 3.5 - 5.0 g/dL [facility] ALP [Catalytic activity/Vol] 120 U/L 40 - 150 U/L [facility] ALT [Catalytic activity/Vol] 9 U/L NINF - 40 U/L [facility] Anion gap [Moles/Vol] 13 mmol/L 3 - 13 mmol/L [facility] AST [Catalytic activity/Vol] 35 U/L High NINF - 34 U/L [facility] Bilirubin [Mass/Vol] 0.6 mg/dL NINF - 1.2 mg/dL [facility] Calcium [Mass/Vol] 9.2 mg/dL 8.4 - 10. 2 mg/dL [facility] Chloride [Moles/Vol] 94 mmol/L Low 98 - 10 7 mmol/L [facility] CO2 [Moles/Vol] 25 mmol/L 22 - 29 mmol/L [facility] Creatinine [Mass/Vol] 3.99 mg/dL High 0.72 - 1.25 mg/dL [facility] GFR/1.73 sq M.predicted (S/P/Bld) [Vol rate/Area] 16.5 mL/min Low - PINF [facility] Glucose [Mass/Vol] 121 mg/dL High 74 - 100 mg/dL [facility] Interpretation and review of laboratory results Abnormal [facility] Potassium [Moles/Vol] 3.4 mmol/L Low 3.5 - 5.1 mmol/L [facility] Protein [Mass/Vol] 6.7 g/dL 6.4 - 8.3 g/dL [facility] Sodium [Moles/Vol] 132 mmol/L Low 136 - 145 mmol/L [facility] Urea nitrogen [Mass/Vol] 36 mg/dL High 9 - 23 mg/d L [facility] Consulton 02-22-2025 Consult Normal [facility] Consult Normal [facility] Consult Normal [facility] LEGIONELLA AND STREPTOCOCCUS URINE ANTIGENon 02-22-2025 LEGIONELLA AND STREPTOCOCCUS URINE ANTIGEN Normal [facility] Comment on above: Performed By: #### L [id number] ####Phys Assistant: DOMENICA JARA ([phone])[facility] ([facility])[address] [place] [address] Laboratory - Chemistry and C hemistry - challengeon 02-22-2025 Magnesium [Mass/Vol] 2.2 mg/dL 1.6 - 2 .6 mg/dL [facility] Laboratory - Coagulationon 0 02-22-2025 PT Coag (Bld) [Time] 14.9 s High 9.0 - 12.0 s [facility] - Drug toxicology on 02-22-2025 Vancomycin [Mass/Vol] 12.6 ug/mL [facility] MAGNESIUMon 02-22-2025 Magnesium [Mass/Vol] 2.2 mg/dL Normal 1.6-2.6 [facility] Comment on above: Result Comment: ARPAN Kaplan COMMENTS:Higher values can be expected in females during menses. Performed By: #### L AB103, LAB17, [id number] ####Phys Assistant: DOMENICA JARA ([id number])[facility] ([facility])[address] [place] [address] [place] MRSA BY PCRon 02-22-2025 MRSA BY PCR Normal [facility] Comment on above: Performed By: #### L [id number] ####Phys Assistant: DOMENICA JARA ([id number])[facility] ([facility])[address] [place] [address] MRSA DNA EMMANUEL+probe Ql (Nose) on 02-22-2025 Interpretation and review of laboratory results Normal [facility] mecA gene Not detected Not Detected [facility] Staphylococcus aureus Not detected Not Detected [facility] Magnesium [Mass/Vol]on 02-22 [facility] No Panel Informationon 02-22 [facility] Interpretation and review of laboratory results Normal [facility] Interpretation and review of laboratory results Abnormal [facility] No Panel InformationOrdered By: Lorin Bryant on 02-22-2025 Interpretation and review of laboratory results Normal [facility] Legionella pneumophila Ag Not detected Not Detected [facility] Streptococcus pneumoniae Ag Not detected Not Detected [facility] Nursing Noteon 02-22-2025 Nursing Note Pt keeps ordering door dash items. Have explained to pt on multiple occasions that staff cannot leave floor to get items and that it is after hours and door dashers most likely will not be allowed up onto the floors. Normal [facility] Nursing Note Normal [facility] Nursing Note Normal [facility] PHOSPHORUSon 02-22-2025 Phosphate [Mass/Vol] 3.2 mg/dL Normal 2.3-4.7 [facility] Comment on above: Performed By: #### L AB103, LAB17, [id number] ####Phys Assistant: DOMENICA JARA ([phone])[address] PNEUMONIA PCR PANELon 2024 PNEUMONIA PCR PANEL Normal [facility] Comment on above: Performed By: #### L [id number] ####Phys Assistant: DOMENICA JARA ([id number])[address] PROTHROMBIN TIMEon INR Coag (PPP) [Relative time] 1.4 {INR} High 0.9-1.1 [facility] Comment on above: Result Comment: Vaughn mmended [...] Myocardial Infarction Performed By: #### L AB325, [id number] ####Phys Assistant: DOMENICA JARA ([id number])[address] PT Coag (PPP) [Time] 14.9 s High 9.0-12.0 [facility] Comment on above: Performed By: #### L AB325, [id number] ####Phys Assistant: DOMENICA JARA ([id number])[facility] ([facility])[address] [place] [address] PT Coag (Bld) [Time]on 02-22 INR Coag (PPP) [Relative time] 1.4 {INR} High 0.9 - 1.1 [facility] Phosphate [Moles/Vol]on 01-26 Phosphate [Mass/Vol] 3.2 mg/dL 2.3 - 4 .7 mg/dL [facility] Progress Noteon 02-22-2025 Progress Note [facility] Progress Note OCCUPATIONAL THERAPY [facility] Name/MRN: Jair Snyder ([id number]) Date: 02/22/2025 PT refusing to participate in therapy this AM, will continue to follow and re approach for OT eval. Ro Farnsworth, OT Normal [facility] Progress Note [facility] Progress Note Normal [facility] RESPIRATORY CULTURE AND STAI Non 02-22-2025 RESPIRATORY CULTURE AND STAIN Normal [facility] Comment on above: Performed By: #### L [id number] ####Phys Assistant: DOMENICA JARA ([id number])[facility] ([facility])[address] [place] [address] Respiratory pathogens DNA an d RNA panel EMMANUEL+non-probe (Lower resp)Ordered By: Odalys Bustamante on 02-22-2025 Acinetobacter baumannii complex Not detected Not Detected [facility] Adenovirus Not detected Not Detected [facility] Chlamydia pneumoniae Not detected Not Detected [facility] Enterobacter cloacae complex Not detected Not Detected [facility] Escherichia coli Not detected Not Detected [facility] FLUAV RNA EMMANUEL+non-probe Ql (Lower resp) Not detected Not Detected [facility] FLUBV RNA EMMANUEL+non-probe Ql (Lower resp) Not detected Not Detected [facility] Haemophilus influenzae Not detected Not Detecte d [facility] Human Metapneumovirus Not detected Not Detected [facility] Human Rhinovirus/Enterovirus Not detected Not Detected [facility] Interpretation and review of laboratory results Abnormal [facility] Klebsiella (Enterobacter) aerogenes Not detected Not Detected [facility]alt Klebsiella oxytoca Detected Abnormal Not Detected [facility] Klebsiella pneumoniae Not detected Not Detected [facility] Legionella pneumophila Not detected Not Detecte d [facility] mecA Not detected Not Detected [facility] th Moraxella catarrhalis Not detected Not Detected [facility] Mycoplasma pneumoniae Not detected Not Detected [facility] Parainfluenza virus Not detected Not Detected [facility] Proteus spp Not detected [facility] Pseudomonas aeruginosa Not detected Not Detecte d [facility] RSV RNA EMMANUEL+probe Ql (Resp) Not detected Not Detected [facility] S. agalactiae Org specific cx Ql (Vag fld) Not detected Not Detected [facility] SARS-CoV-2 (COVID-19) RNA EMMANUEL+non-probe Ql (Nph) Not detected Not Detected [facility] Serratia marcescens Not detected Not Detected [facility] Staphylococcus aureus Detected Abnormal Not Detected [facility] Streptococcus pneumoniae Not detected Not Detec yo [facility] Streptococcus pyogenes Not detected Not Detecte d [facility] VANCOMYCIN, RANDOMon 025 VANCOMYCIN 12.6 ug/mL Normal [facility] Comment on above: Result Comment: ORDE R COMMENTS:This level is ordered to be drawn 4 hours post- HD. ThanksToxicity is seen at concentrations >80-100 ug/mLTherapeutic (Peak) range: 20-40Therapeutic (Trough) range: 5-10 Performed By: #### L AB40 ####Phys Assistant: DOMENICA JARA ([id number])[facility] ([facility] aPTT Coag (Bld) [Time]on aPTT Coag (PPP) [Time] 52.1 s High 20.0 - 30.5 s [facility] Interpretation and review of laboratory results Abnormal [facility] aPTT Coag (PPP) [Time] 54.9 s High 20.0 - 30.5 s [facility] 30on 02-21-2025 30 Normal [facility] [id number] 02-21-2025 [id number] Has dialysis at facility, [facility]..Tiffanie campbell signed by Kaity Sepulveda RN on 02/21/2025 at 12:54 PM Normal [facility] [id number] Normal [facility] 36on 02-21-2025 36 Normal [facility] APTTon 02-21-2025 aPTT Coag (Bld) [Time] 50.3 s High 20.0-30.5 [facility] Comment on above: Result Comment: ARPAN Kaplan COMMENTS:NOTE: The therapeutic time for Heparin anticoagulation, based on Xa activity inhibition, is an APTT of 46-80 seconds. Performed By: #### L AB325 ####Phys Assistant: DOMENICA JARA ([id number])[address] aPTT Coag (Bld) [Time] 32.6 s High 20.0-30.5 [facility] Comment on above: Result Comment: ARPAN Kaplan COMMENTS:NOTE: The therapeutic time for Heparin anticoagulation, based on Xa activity inhibition, is an APTT of 46-80 seconds. Performed By: #### L AB325 ####Phys Assistant: DOMENICA JARA ([id number])[facility] ([facility])[address] [place] [address] BLOOD TYPE AND SCREEN GELon 02-21-2025 ABO GROUPING O Normal [facility] Comment on above: Performed By: #### L AB276 ####Phys Assistant: DOMENICA JARA ([phone])[facility] BLOOD BANK ([facility])[address] [place] [address] RH TYPE IN BLOOD Negative Normal [facility] Comment on above: Performed By: #### L AB276 ####Phys Assistant: DOMENICA JARA ([phone])[facility] BLOOD [facility] ([facility])[address] [place] [address] Blood type and Crossmatch pa freida (Bld)on 02-21-2025 ABO group Nom (Bld) O [facility] Blood group antibody screen GEL Ql Negative [facility] D Ag Ql (RBC) Negative [facility] h [facility] C-REACTIVE PROTEINon CRP [Mass/Vol] 60.3 mg/L High <5.0 [facility] Comment on above: Performed By: #### L AB149, [id number], LAB17, KHX890, [id number] ####Phys Assistant: DOMENICA JARA ([id number])[facility] ([facility])[address] [place] [address] CBC (HEMOGRAM)on 02-21-2025 Erythrocyte distribution width (RBC) [Ratio] 19.0 % High 11.5-15.0 [facility] Comment on above: Performed By: #### L AB294 ####Phys Assistant: DOMENICA JARA ([phone])[facility])[address] [place] [address] Hematocrit (Bld) [Volume fraction] 25.7 % Low 40.0-52.0 [facility] Comment on above: Performed By: #### L AB294 ####Phys Assistant: DOMENICA JARA ([id number])[facility] ([facility])[address] [place] [address] Hemoglobin (Bld) [Mass/Vol] 8.3 g/dL Low 13.0-18.0 [facility] Comment on above: Performed By: #### L AB294 ####Phys Assistant: DOMENICA JARA ([id number])[facility])[address] [place] [address] MCH (RBC) [Entitic mass] 29.0 pg Normal 26.0-34.0 [facility] Comment on above: Performed By: #### L AB294 ####Phys Assistant: DOMENICA JARA ([id number])[facility])[address] [place] [address] MCHC 32.3 % Normal 30.5-36.0 [facility] Comment on above: Performed By: #### L AB294 ####Phys Assistant: DOMENICA JARA ([phone])[facility])[address] [place] [address] MCV (RBC) [Entitic vol] 89.9 fL Normal 77.0-99.0 S [facility] Comment on above: Performed By: #### L AB294 ####Phys Assistant: DOMENICA JARA ([id number])[facility] ([facility])[address] [place] [address] Platelet mean volume (Bld) [Entitic vol] 8.9 fL Low 9.0-12.7 [facility] Comment on above: Performed By: #### L AB294 ####Phys Assistant: DOMENICA JARA ([id number])[facility] ([facility])[address] [place] [address] Platelets (Bld) [#/Vol] 316 10*3/uL Normal 140-440 [facility] Comment on above: Performed By: #### L AB294 ####Phys Assistant: DOMENICA JARA ([id number])[facility] ([facility])[address] [place] [address] RBC (Bld) [#/Vol] 2.86 10*6/uL Low 4.40-5.90 [facility] Comment on above: Performed By: #### L AB294 ####Phys Assistant: DOMENICA JARA ([id number])[facility] ([facility])[address] [place] [address] WBC (Bld) [#/Vol] 7.0 10*3/uL Normal 3.6-10.7 [facility] Comment on above: Performed By: #### L AB294 ####Phys Assistant: DOMENICA JARA ([id number])[facility] ([facility])[address] [place] [address] CBC panel Auto (Bld)on 02-21 Erythrocyte distribution width (RBC) [Ratio] 19 % High 11.5 - 15.0 % [facility] Hematocrit (Bld) [Volume fraction] 25.7 % Low 40.0 - 52.0 % [facility] Hemoglobin (Bld) [Mass/Vol] 8.3 g/dL Low 13.0 - 18.0 g/dL [facility] Interpretation and review of laboratory results Abnormal [facility] MCH (RBC) [Entitic mass] 29 pg 26. 0 - 34.0 pg [facility] MCHC (RBC) [Mass/Vol] 32.3 % 30.5 - 36.0 % [facility] MCV (RBC) [Entitic vol] 89.9 fL 77.0 - 99.0 fL [facility] Platelet mean volume (Bld) [Entitic vol] 8.9 fL Low 9.0 - 12.7 fL [facility] Platelets (Bld) [#/Vol] 316 10*3/uL 140 - 440 10*3/uL [facility] RBC (Bld) [#/Vol] 2.86 10*6/uL Low 4.40 - 5.9 0 10*6/uL [facility] WBC (Bld) [#/Vol] 7 10*3/uL 3.6 - 10.7 10*3/uL [facility] COMPREHENSIVE METABOLIC PANE Victor M 02-21-2025 Albumin [Mass/Vol] 2.0 g/dL Low 3.5-5.0 [facility] Comment on above: Performed By: #### L AB149, [id number], LAB17, PCO838, HTS043 ####Phys Assistant: DOMENICA JARA ([id number])[facility] ([facility])[address] [place] [address] ALP [Catalytic activity/Vol] 120 U/L Normal 40-150 [facility] Comment on above: Performed By: #### L AB149, [id number], LAB17, PEF259, CEN710 ####Phys Assistant: DOMENICA JARA ([id number])[facility] ([facility])[address] [place] [address] ALT [Catalytic activity/Vol] 8 U/L Normal <40 [facility] Comment on above: Performed By: #### L AB149, [id number], LAB17, GOA039, NTD264 ####Phys Assistant: DOMENICA JARA ([id number])[facility] ([facility])[address] [place] [address] Anion gap [Moles/Vol] 12 mmol/L Normal 3-13 [facility] Comment on above: Performed By: #### L AB149, [id number], LAB17, BZS096, TRE709 ####Phys Assistant: DOMENICA JARA ([id number])[facility] ([facility])[address] [place] [address] AST [Catalytic activity/Vol] 39 U/L High <34 [facility] Comment on above: Performed By: #### L AB149, [id number], LAB17, NZH966, OOL121 ####Phys Assistant: DOMENICA JARA ([id number])[facility] ([facility])[address] [place] [address] Bilirubin [Mass/Vol] 0.8 mg/dL Normal <1.2 [facility] Comment on above: Performed By: #### L AB149, [id number], LAB17, TJF938, GWZ415 ####Phys Assistant: DOMENICA JARA ([id number])[facility] ([facility])[address] [place] [address] Calcium [Mass/Vol] 9.3 mg/dL Normal 8.4-10.2 [facility] Comment on above: Performed By: #### L AB149, [id number], LAB17, JPX157, KSZ395 ####Phys Assistant: DOMENICA JARA ([id number])[facility] ([facility])[address] [place] [address] Chloride [Moles/Vol] 91 mmol/L Low 98-107 [facility] Comment on above: Performed By: #### L AB149, [id number], LAB17, RNU696, XZL703 ####Phys Assistant: DOMENICA JARA ([id number])[facility] ([facility])[address] [place] [address] [place] CO2 [Moles/Vol] 28 mmol/L Normal 22-29 [facility] Comment on above: Performed By: #### L AB149, [id number], LAB17, SDE992, XMM010 ####Phys Assistant: DOMENICA JARA ([id number])[facility] ([facility])[address] [place] [address] [place] Creatinine [Mass/Vol] 2.89 mg/dL High 0.72-1.25 [facility] Comment on above: Performed By: #### L AB149, [id number], LAB17, DOU160, CSE281 ####Phys Assistant: DOMENICA JARA ([phone])[facility])[address] [place] [address] GLOMERULAR FILTRATION RATE ML/MIN/1.73 SQ M.PREDICTED 24.3 mL/min/1.73m*2 Low >60.0 [facility] Comment on above: Result Comment: Calc ulation based on the Chronic Kidney Disease Epidemiology Collaboration (CKD-EPI) equation refit without adjustment for race Performed By: #### L AB149, [id number], LAB17, MEZ108, NZN032 ####Phys Assistant: DOMENICA JARA ([id number])[facility])[address] [place] [address] Glucose [Mass/Vol] 74 mg/dL Normal 74-100 [facility] Comment on above: Performed By: #### Tameka AB149, [id number], LAB17, FNF608, FAP580 ####Phys Assistant: DOMENICA JARA ([id number])[address] Potassium [Moles/Vol] 3.1 mmol/L Low 3.5-5.1 [facility] Comment on above: Result Comment: [facility] potassium values may be up to 0.5 mmol/L lower than serum values. Performed By: #### L AB149, [id number], LAB17, YZQ095, YSS936 ####Phys Assistant: DOMENICA JARA ([phone])[address] Protein [Mass/Vol] 6.8 g/dL Normal 6.4-8.3 [facility] Comment on above: Performed By: #### L AB149, [id number], LAB17, HSK325, NNV010 ####Phys Assistant: DOMENICA JARA ([id number])[facility])[address] [place] [address] [place] Sodium [Moles/Vol] 131 mmol/L Low 136-145 [facility] Comment on above: Performed By: #### L AB149, [id number], LAB17, KLC772, IXU838 ####Phys Assistant: DOMENICA JARA ([id number])[facility] ([facility])[address] [place] [address] Urea nitrogen [Mass/Vol] 29 mg/dL High 9-23 [facility] Comment on above: Performed By: #### L AB149, [id number], LAB17, ZDX771, WAV512 ####Phys Assistant: DOMENICA JARA ([id number])[facility] [place] [address] CRP [Mass/Vol]on 02-21-2025 Interpretation and review of laboratory results Abnormal [facility] Comprehensive metabolic 1998 panelon 02-21-2025 Albumin [Mass/Vol] 2 g/dL Low 3.5 - 5.0 g/dL [facility] ALP [Catalytic activity/Vol] 120 U/L 40 - 150 U/L [facility] ALT [Catalytic activity/Vol] 8 U/L NINF - 40 U/L [facility] Anion gap [Moles/Vol] 12 mmol/L 3 - 13 mmol/L [facility] AST [Catalytic activity/Vol] 39 U/L High NINF - 34 U/L [facility] Bilirubin [Mass/Vol] 0.8 mg/dL NINF - 1.2 mg/dL [facility] Calcium [Mass/Vol] 9.3 mg/dL 8.4 - 10. 2 mg/dL [facility] Chloride [Moles/Vol] 91 mmol/L Low 98 - 10 7 mmol/L [facility] CO2 [Moles/Vol] 28 mmol/L 22 - 29 mmol/L [facility] Creatinine [Mass/Vol] 2.89 mg/dL High 0.72 - 1.25 mg/dL [facility] GFR/1.73 sq M.predicted (S/P/Bld) [Vol rate/Area] 24.3 mL/min Low - PINF [facility] Glucose [Mass/Vol] 74 mg/dL 74 - 100 mg/dL [facility] Potassium [Moles/Vol] 3.1 mmol/L Low 3.5 - 5.1 mmol/L [facility] Protein [Mass/Vol] 6.8 g/dL 6.4 - 8.3 g/dL [facility] Sodium [Moles/Vol] 131 mmol/L Low 136 - 145 mmol/L [facility] Urea nitrogen [Mass/Vol] 29 mg/dL High 9 - 23 mg/d L [facility] Consulton 02-21-2025 Consult Normal [facility] Consult Normal [facility] Consult Normal [facility] Consult Normal [facility] Laboratory - Chemistry and C hemistry - challengeon 02-21-2025 CRP [Mass/Vol] 60.3 mg/L High NINF - 5.0 mg/L [facility] Procalcitonin [Mass/Vol] 0.68 ng/mL High PROSPER F - 0.07 ng/mL [facility] Magnesium [Mass/Vol] 2.2 mg/dL 1.6 - 2 .6 mg/dL [facility] MAGNESIUMon 02-21-2025 Magnesium [Mass/Vol] 2.2 mg/dL Normal 1.6-2.6 [facility] Comment on above: Result Comment: ARPAN Kaplan COMMENTS:Higher values can be expected in females during menses. Performed By: #### L AB149, [id number], LAB17, GSW108, GRZ261 ####Phys Assistant: DOMENICA JARA ([phone])[address] Magnesium [Mass/Vol]on 02-21 Interpretation and review of laboratory results Normal [facility] No Panel Informationon 02-21 Interpretation and review of laboratory results Abnormal [facility] Nursing Noteon 02-21-2025 Nursing Note Pt ordered [employer] food. Assisted pt to sit up on bedside to eat. Normal [facility] Nursing Note Normal [facility] Nursing Note Pt declining scheduled medications until after RN calls facility to see if he is actively taking those medications" per pt request. This RN spoke with RN at [facility] to verify medications that pt is taking. Normal [facility] Nursing Note Normal [facility] Nursing Note Pt removed NC from nose, stated he doesn't need it anymore. Respiratory Therapy came in to give pt, scheduled breathing treatment, pt stated he didn't need one." Normal [facility] Nursing Note Normal [facility] PHOSPHORUSon 02-21-2025 Phosphate [Mass/Vol] 2.0 mg/dL Low 2.3-4.7 [facility] Comment on above: Performed By: #### L AB149, [id number], LAB17, HJN985, BYF575 ####Phys Assistant: DOMENICA JARA ([phone])[facility])[address] [place] [address] PROCALCITONIN TESTon 025 PROCALCITONIN 0.68 ng/mL High <0.07 [facility] Comment on above: Result Comment: ARPAN Kaplan COMMENTS:PCT <0.50 = Low risk of severe sepsis and/or septic shock.PCT >2.00 = High risk of severe sepsis and/or septic shock. Performed By: #### L AB149, [id number], LAB17, VFJ142, CHE262 ####Phys Assistant: DOMENICA JARA ([id number])[facility] ([facility])[address] [place] [address] Phosphate [Moles/Vol]on 01-26 Phosphate [Mass/Vol] 2 mg/dL Low 2.3 - 4 .7 mg/dL [facility] Procalcitonin [Mass/Vol]on 0 02-21-2025 Interpretation and review of laboratory results Abnormal [facility] Progress Noteon 02-21-2025 Progress Note PHYSICAL THERAPY [facility] Name/MRN: Jair Snyder ([id number]) Date: 02/21/2025 Pt declined to work with therapy at this time, stating he wanted to eat first. Will reattempt at a later date. Sagneeta Sarabia, PT Normal [facility] Progress Note Normal [facility] Progress Note Normal [facility] RESPIRATORY PATHOGENS PANEL BY PCRon 02-21-2025 RESPIRATORY PATHOGENS PANEL BY PCR Normal [facility] Comment on above: Performed By: #### L [id number] ####Phys Assistant: DOMENICA JARA ([id number])[facility] ([facility])[address] [place] [address] Respiratory pathogens DNA an d RNA panel EMMANUEL+non-probe (Nph)on 02-21-2025 Adenovirus Not detected Not Detected [facility] B. pertussis DNA EMMANUEL+probe Ql (Unsp spec) Not detected Not Detected [facility] Bordetella parapertussis Not detected Not Detec yo [facility] Chlamydia pneumoniae Not detected Not Detected [facility] Coronavirus 229E Not detected Not Detected [facility] Coronavirus HKU1 Not detected Not Detected [facility] Coronavirus NL63 Not detected Not Detected [facility] Coronavirus OC43 Not detected Not Detected [facility] FLUAV RNA EMMANUEL+non-probe Ql (Nph) Not detected Not Detected [facility] FLUBV RNA EMMANUEL+non-probe Ql (Nph) Not detected Not Detected [facility] Human Metapneumovirus Not detected Not Detected [facility] Human Rhinovirus/Enterovirus Not detected Not Detected [facility] Interpretation and review of laboratory results Normal [facility] Mycoplasma pneumoniae Not detected Not Detected [facility] Parainfluenza 1 Not detected Not Detected [facility] Parainfluenza 2 Not detected Not Detected [facility] Parainfluenza 3 Not detected Not Detected [facility] Parainfluenza 4 Not detected Not Detected [facility] Respiratory Syncytial Virus Not detected Not Detected [facility] SARS-CoV-2 (COVID-19) RNA EMMANUEL+non-probe Ql (Nph) Not detected Not Detected [facility] aPTT Coag (Bld) [Time]on aPTT Coag (PPP) [Time] 50.3 s High 20.0 - 30.5 s [facility] Interpretation and review of laboratory results Abnormal [facility] aPTT Coag (PPP) [Time] 32.6 s High 20.0 - 30.5 s [facility] Interpretation and review of laboratory results Abnormal [facility] APTTon 02-20-2025 aPTT Coag (Bld) [Time] 26.2 s Normal 20.0-30.5 [facility] Comment on above: Result Comment: ARPAN Kaplan COMMENTS:NOTE: The therapeutic time for Heparin anticoagulation, based on Xa activity inhibition, is an APTT of 46-80 seconds. Performed By: #### L AB320, [id number] ####Phys Assistant: FENG CONSTANTINO ([id number])[facility] ([facility])[address] Absolute lymphocyte countOrd ered By: Kayley Melendrez on 02-20-2025 Lymphocytes Auto (Unsp spec) [#/Vol] 1.13 10*3/uL 0.83-4.51 [facility] Absolute neutrophil countOrd ered By: Kayley Melendrez on 02-20-2025 Neutrophils (Bld) [#/Vol] 4.6 10*3/uL 2.0-7.7 [facility] Anion gap in Serum or Plasma Ordered By: Kayley Melendrez on 02-20-2025 Anion gap [Moles/Vol] 12 mmol/L -15 [facility] Automated lymphocyte count a s percentage of total leukocytesOrdered By: Kayley Melendrez on 02-20-2025 Lymphocytes/100 WBC Auto (Unsp spec) 16.4 % Low 19-41 [facility] BASIC METABOLIC PANELon 01-26 Anion gap [Moles/Vol] 12 mmol/L Normal 3-13 [facility] Comment on above: Performed By: #### L AB15 ####Phys Assistant: FENG CONSTANTINO ([phone])[facility]IALMatt [facility] (SBHLAB)[address] Calcium [Mass/Vol] 9.6 mg/dL Normal 8.4-10.2 [facility] Comment on above: Performed By: #### L AB15 ####Phys Assistant: FENG CONSTANTINO ([id number])[facility] MEMORIALMatt [place] (SB[facility]AB)[address] Chloride [Moles/Vol] 92 mmol/L Low 98-107 [facility] Comment on above: Performed By: #### L AB15 ####Phys Assistant: FENG CONSTANTINO ([id number])[facility]IAL[facility] [place] (SB[facility])[address] CO2 [Moles/Vol] 29 mmol/L Normal 22-29 [facility] Comment on above: Performed By: #### L AB15 ####Phys Assistant: FENG CONSTANTINO ([id number])[facility] MEMORIALMatt [facility]ITAL[facility]and[facility] (SBHLAB)[address] Creatinine [Mass/Vol] 2.57 mg/dL High 0.72-1.25 [facility] Comment on above: Performed By: #### L AB15 ####Phys Assistant: FENG CONSTANTINO ([phone])[facility] (SBAB)[address] GLOMERULAR FILTRATION RATE ML/MIN/1.73 SQ M.PREDICTED 27.9 mL/min/1.73m*2 Low >60.0 [facility] Comment on above: Result Comment: Calc ulation based on the Chronic Kidney Disease Epidemiology Collaboration (CKD-EPI) equation refit without adjustment for race Performed By: #### L AB15 ####Phys Assistant: FENG CONSTANTINO ([id number])[facility] (SBHLAB)[address] Glucose [Mass/Vol] 80 mg/dL Normal 74-100 [facility] Comment on above: Performed By: #### L AB15 ####Phys Assistant: FENG CONSTANTINO ([id number])[facility] (SBAB)[address] Potassium [Moles/Vol] 3.1 mmol/L Low 3.5-5.1 [facility] Comment on above: Result Comment: [facility] potassium values may be up to 0.5 mmol/L lower than serum values. Performed By: #### L AB15 ####Phys Assistant: FENG CONSTANTINO ([id number])[facility] (SBAB)[address] Sodium [Moles/Vol] 133 mmol/L Low 136-145 [facility] Comment on above: Performed By: #### L AB15 ####Phys Assistant: FENG CONSTANTINO ([id number])[facility] MEMORIALMatt [facility]ITALChandana (SBHLAB)[address] Urea nitrogen [Mass/Vol] 29 mg/dL High 9-23 [facility] Comment on above: Performed By: #### L AB15 ####Phys Assistant: FENGLINO CONSTANTINO ([phone])[facility]ITALCh[facility] (SBHLAB)[address] BUN/creatinine ratioOrdered By: Kayley Melendrez on 02-20-2025 Urea nitrogen/Creatinine [Mass ratio] 11.5 mg/mg 10-20 [facility] Basic metabolic 1998 panelon 02-20-2025 Anion gap [Moles/Vol] 12 mmol/L 3 - 13 mmol/L [facility] Calcium [Mass/Vol] 9.6 mg/dL 8.4 - 10. 2 mg/dL [facility] Chloride [Moles/Vol] 92 mmol/L Low 98 - 10 7 mmol/L [facility] CO2 [Moles/Vol] 29 mmol/L 22 - 29 mmol/L [facility] Creatinine [Mass/Vol] 2.57 mg/dL High 0.72 - 1.25 mg/dL [facility] GFR/1.73 sq M.predicted (S/P/Bld) [Vol rate/Area] 27.9 mL/min Low - PINF [facility] Glucose [Mass/Vol] 80 mg/dL 74 - 100 mg/dL [facility] Interpretation and review of laboratory results Abnormal [facility] Potassium [Moles/Vol] 3.1 mmol/L Low 3.5 - 5.1 mmol/L [facility] Sodium [Moles/Vol] 133 mmol/L Low 136 - 145 mmol/L [facility] Urea nitrogen [Mass/Vol] 29 mg/dL High 9 - 23 mg/d L [facility] Basophil percentageOrdered B y: Kayley Melendrez on 02-20-2025 Basophils/100 WBC (Bld) 1.4 % High 0-1 [facility] Bilirubin, totalOrdered By: Kayley Melendrez on 02-20-2025 Bilirubin [Mass/Vol] 0.64 mg/dL 0.00-1.30 [facility] CBC (HEMOGRAM)on 02-20-2025 Erythrocyte distribution width (RBC) [Ratio] 18.8 % High 11.5-15.0 [facility] Comment on above: Performed By: #### L AB294 ####Phys Assistant: FENG CONSTANTINO ([phone])APPLE BARBDAPHNIE (SBHLAB)[address] Hematocrit (Bld) [Volume fraction] 26.8 % Low 40.0-52.0 [facility] Comment on above: Performed By: #### L AB294 ####Phys Assistant: FENG CONSTANTINO ([phone])[facility] BAR[facility] (SBHLAB)[address] [place] [address] Hemoglobin (Bld) [Mass/Vol] 8.7 g/dL Low 13.0-18.0 [facility] Comment on above: Performed By: #### L AB294 ####Phys Assistant: FENG CONSTANTINO ([phone])[facility] (SBHLAB)[address] MCH (RBC) [Entitic mass] 28.7 pg Normal 26.0-34.0 [facility] Comment on above: Performed By: #### L AB294 ####Phys Assistant: FENG CONSTANTINO ([phone])APP[facility] BARBDAPHNIE (SBHLAB)[address] [place] [address] MCHC 32.5 % Normal 30.5-36.0 [facility] Comment on above: Performed By: #### L AB294 ####Phys Assistant: FENG CONSTANTINO ([phone])[facility]IALMatt BARBDAPHNIE (SBHLAB)[address] MCV (RBC) [Entitic vol] 88.4 fL Normal 77.0-99.0 [facility] Comment on above: Performed By: #### L AB294 ####Phys Assistant: FENG CONSTANTINO ([phone])APPLE DO (SBHLAB)[address] Platelet mean volume (Bld) [Entitic vol] 8.5 fL Low 9.0-12.7 [facility] Comment on above: Performed By: #### L AB294 ####Phys Assistant: FENG CONSTANTINO ([id number])APPLE GALINDON (SBHLAB)[address] Platelets (Bld) [#/Vol] 312 10*3/uL Normal 140-440 [facility] Comment on above: Performed By: #### L AB294 ####Phys Assistant: FENG CONSTANTINO ([id number])APPLE DO (SBHLAB)[address] RBC (Bld) [#/Vol] 3.03 10*6/uL Low 4.40-5.90 [facility] Comment on above: Performed By: #### L AB294 ####Phys Assistant: FENG CONSTANTINO ([id number])[facility]IALMatt GALINDON (SBHLAB)[address] WBC (Bld) [#/Vol] 9.4 10*3/uL Normal 3.6-10.7 [facility] Comment on above: Performed By: #### L AB294 ####Phys Assistant: FENG CONSTANTINO ([id number])[facility] MEMORIALMatt DO (SBHLAB)[address] CBC W/Diff, Automatedon 05-2 Absolute Lymph 1.13 X10 3/uL Normal 0.83-4.51 [facility] Comment on above: Order Comment: 412.2 Performed By: #### L 100.0100, L500.4050, L300.3900 #### [facility] [address] [place], [place], [id number] Absolute Neut 4.6 X10 3/uL Normal 2.0-7.7 [facility] Comment on above: Order Comment: 412.2 Performed By: #### L 100.0100, L500.4050, L300.3900 #### [facility] [address] [place], [address] Basophils/100 WBC (Bld) 1.4 % High 0-1 [facility] Comment on above: Order Comment: 412.2 Performed By: #### L 100.0100, L500.4050, L300.3900 #### [facility] [address] [place], [address] Eosinophils/100 WBC (Bld) 2.5 % Normal 0-5 [facility] Comment on above: Order Comment: 412.2 Performed By: #### L 100.0100, L500.4050, L300.3900 #### [facility] [address] [place], [address] Erythrocyte distribution width (RBC) [Ratio] 19.4 % High 11.6-14.6 [facility] Comment on above: Order Comment: 412.2 Performed By: #### L 100.0100, L500.4050, L300.3900 #### [facility] [address] [place], [address] Hematocrit (Bld) [Volume fraction] 25.9 % Low 40-54 [facility] Comment on above: Order Comment: 412.2 Performed By: #### L 100.0100, L500.4050, L300.3900 #### [facility] [address] [place], [address] Hemoglobin (Bld) [Mass/Vol] 8.5 g/dL Low 13.0-16.5 [facility] Comment on above: Order Comment: 412.2 Performed By: #### L 100.0100, L500.4050, L300.3900 #### [facility] [address] [place], [address] IG% 0.400 Normal 0.0-0.9 [facility] Comment on above: Order Comment: 412.2 Result Comment: IG% - Immature Granulocytes (promyelocytes, myelocytes and metamyelocytes) > 1% indicates that a LEFT SHIFT is Present. Performed By: #### L 100.0100, L500.4050, L300.3900 #### [facility] [address] [place], [address] Lymphocytes/100 WBC (Bld) 16.4 % Low 19-41 [facility] Comment on above: Order Comment: 412.2 Performed By: #### L 100.0100, L500.4050, L300.3900 #### [facility] [address] [place], [address] MCH (RBC) [Entitic mass] 30.1 pg Normal 27.0-32.0 [facility] Comment on above: Order Comment: 412.2 Performed By: #### L 100.0100, L500.4050, L300.3900 #### [facility] [address] [place], [address] MCHC (RBC) [Mass/Vol] 32.8 g/dL Normal 32-36 [facility] Comment on above: Order Comment: 412.2 Performed By: #### L 100.0100, L500.4050, L300.3900 #### [facility] [address] [place], [address] MCV (RBC) [Entitic vol] 91.8 fL Normal 80-94 [facility] Comment on above: Order Comment: 412.2 Performed By: #### L 100.0100, L500.4050, L300.3900 #### [facility] [address] [place], [address] Monocytes/100 WBC (Bld) 12.0 % High 0-10 [facility] Comment on above: Order Comment: 412.2 Performed By: #### L 100.0100, L500.4050, L300.3900 #### [facility] [address] [place], [address] Neutrophils/100 WBC (Bld) 67.3 % Normal 47-70 [facility] Comment on above: Order Comment: 412.2 Performed By: #### L 100.0100, L500.4050, L300.3900 #### [facility] [address] [place], [address] Nucleated RBC (Bld) [#/Vol] 0 10*3/uL Normal 0-5 [facility] Comment on above: Order Comment: 412.2 Performed By: #### L 100.0100, L500.4050, L300.3900 #### [facility] [address] [place], [address] Platelet mean volume (Bld) [Entitic vol] 9.0 fL Normal 6.2-12.0 [facility] Comment on above: Order Comment: 412.2 Performed By: #### L 100.0100, L500.4050, L300.3900 #### [facility] [address] [place], [address] Platelets (Bld) [#/Vol] 322 10*3/uL Normal 150-450 [facility] Comment on above: Order Comment: 412.2 Performed By: #### L 100.0100, L500.4050, L300.3900 #### [facility] [address] [place], [address] RBC (Bld) [#/Vol] 2.82 10*6/uL Low 4.6-6.2 [facility] Comment on above: Order Comment: 412.2 Performed By: #### L 100.0100, L500.4050, L300.3900 #### [facility] [address] [place], [address] RDW SD 63.5 fl High 35.1-43.9 [facility] Comment on above: Order Comment: 412.2 Performed By: #### L 100.0100, L500.4050, L300.3900 #### [facility] [address] [place], [address] WBC (Bld) [#/Vol] 6.9 10*3/uL Normal 4.4-11.0 [facility] Comment on above: Order Comment: 412.2 Performed By: #### L 100.0100, L500.4050, L300.3900 #### [facility] [address] [place], [address] CBC panel Auto (Bld)on 02-20 Erythrocyte distribution width (RBC) [Ratio] 18.8 % High 11.5 - 15.0 % [facility] Hematocrit (Bld) [Volume fraction] 26.8 % Low 40.0 - 52.0 % [facility] Hemoglobin (Bld) [Mass/Vol] 8.7 g/dL Low 13.0 - 18.0 g/dL [facility] Interpretation and review of laboratory results Abnormal [facility] MCH (RBC) [Entitic mass] 28.7 pg 26. 0 - 34.[address] [facility] MCHC (RBC) [Mass/Vol] 32.5 % 30.5 - 36.0 % [facility] MCV (RBC) [Entitic vol] 88.4 fL 77.0 - 99.[address] [facility] Platelet mean volume (Bld) [Entitic vol] 8.5 fL Low 9.0 - 12.[address] [facility] Platelets (Bld) [#/Vol] 312 10*3/uL 140 - 440 10*3/uL [facility] RBC (Bld) [#/Vol] 3.03 10*6/uL Low 4.40 - 5.9 0 10*6/uL [facility] WBC (Bld) [#/Vol] 9.4 10*3/uL 3.6 - 10.7 10*3/uL [facility] CT CHEST ANGIOGRAM W AND/OR WO IV CONTRASTon 02-20-2025 CT CHEST ANGIOGRAM W AND/OR WO IV CONTRAST Normal [facility] CTA Chest vessels WO and W c ontrast Dimitrios 02-20-2025 [facility] RADIOLOGY [facility] Radiology Study observation (narrative) [facility] CTA Chest vessels WO and W c ontrast IVOrdered By: Justo Milan on 02-20-2025 [facility] Work Phone: Carbon dioxide, total [Moles /volume] in Central venous bloodOrdered By: Kayley Melendrez on 02-20-2025 CO2 [Moles/Vol] 30.1 mmol/L 21.0-32.0 [facility] Chloride assayOrdered By: Leisa Melendrez on 02-20-2025 Chloride [Moles/Vol] 91 mmol/L Low 98-108 [facility] Comprehensive Metabolic Prof ilon 02-20-2025 Albumin [Mass/Vol] 3.0 g/dL Low 3.5-5.0 [facility] Comment on above: Order Comment: 412.2 Performed By: #### L 100.0100, L500.4050, L300.3900 #### [facility] [address] [place], [address] Albumin/Globulin [Mass ratio] 0.8 {ratio} Low 0.9-2.4 [facility] Comment on above: Order Comment: 412.2 Performed By: #### L 100.0100, L500.4050, L300.3900 #### [facility] [address] [place], [address] ALK PHOS 133 U/L High 40-129 [facility] Comment on above: Order Comment: 412.2 Performed By: #### L 100.0100, L500.4050, L300.3900 #### [facility] [address] [place], [address] ALT [Catalytic activity/Vol] 13 U/L Normal <=46 [facility] Comment on above: Order Comment: 412.2 Performed By: #### L 100.0100, L500.4050, L300.3900 #### [facility] [address] [place], [address] AST [Catalytic activity/Vol] 32 U/L Normal <=37 [facility] Comment on above: Order Comment: 412.2 Performed By: #### L 100.0100, L500.4050, L300.3900 #### [facility] [address] [place], [address] Bilirubin [Mass/Vol] 0.64 mg/dL Normal 0.00-1.30 [facility] Comment on above: Order Comment: 412.2 Performed By: #### L 100.0100, L500.4050, L300.3900 #### [facility] [address] [place], [address] BUN/CRE 11.5 RATIO Normal 10-20 [facility] Comment on above: Order Comment: 412.2 Performed By: #### L 100.0100, L500.4050, L300.3900 #### [facility] [address] [place], [address] Calcium [Mass/Vol] 9.8 mg/dL Normal 7.6-11.0 [facility] Comment on above: Order Comment: 412.2 Performed By: #### L 100.0100, L500.4050, L300.3900 #### [facility] [address] [place], [address] Chloride [Moles/Vol] 91 mmol/L Low 98-108 [facility] Comment on above: Order Comment: 412.2 Performed By: #### L 100.0100, L500.4050, L300.3900 #### [facility] [address] [place], [address] CO2 [Moles/Vol] 30.1 mmol/L Normal 21.0-32.0 [facility] Comment on above: Order Comment: 412.2 Performed By: #### L 100.0100, L500.4050, L300.3900 #### [facility] [address] [place], [address] Creatinine [Mass/Vol] 3.87 mg/dL High 0.70-1.20 [facility] Comment on above: Order Comment: 412.2 Performed By: #### L 100.0100, L500.4050, L300.3900 #### [facility] [address] [place], [address] GAP 12 Normal 5-15 [facility] Comment on above: Order Comment: 412.2 Performed By: #### L 100.0100, L500.4050, L300.3900 #### [facility] [address] [place], [address] GFR/1.73 sq M.predicted among non-blacks MDRD (S/P/Bld) [Vol rate/Area] 17 mL/min/{1.73_m2} Low >60 [facility] Comment on above: Order Comment: 412.2 Result Comment: mL/m in/1.73m2 CKD-EPI Creatinine Equation (2020) Performed By: #### L 100.0100, L500.4050, L300.3900 #### [facility] [address] [place], [address] Globulin (S) [Mass/Vol] 4.0 g/dL Normal 2.2-4.2 [facility] Comment on above: Order Comment: 412.2 Performed By: #### L 100.0100, L500.4050, L300.3900 #### [facility] [address] [place], [address] Glucose [Mass/Vol] 78 mg/dL Normal 70-99 [facility] Comment on above: Order Comment: 412.2 Performed By: #### L 100.0100, L500.4050, L300.3900 #### [facility] [address] [place], [address] Potassium [Moles/Vol] 3.0 mmol/L Low 3.3-5.1 [facility] Comment on above: Order Comment: 412.2 Performed By: #### L 100.0100, L500.4050, L300.3900 #### [facility] [address] [place], [address] Sodium [Moles/Vol] 134 mmol/L Normal 133-145 [facility] Comment on above: Order Comment: 412.2 Performed By: #### L 100.0100, L500.4050, L300.3900 #### [facility] [address] [place], [address] T PROT 6.9 g/dL Normal 5.9-8.4 [facility] Comment on above: Order Comment: 412.2 Performed By: #### L 100.0100, L500.4050, L300.3900 #### [facility] [address] [place], [address] Urea nitrogen [Mass/Vol] 44 mg/dL High 4-19 [facility] Comment on above: Order Comment: 412.2 Performed By: #### L 100.0100, L500.4050, L300.3900 #### [facility] [address] [place], [address] ED Nursing Noteon 02-20-2025 ED Nursing Note Called report to 3W nurse who will be taking over pt care. Normal [facility] ED Nursing Note Attempted to reposition pt and have him sit up but pt states "he feels fine and does not want to sit up"despite coughing up blood. Normal [facility] ED Nursing Note Pt placed on 2L NC due to O2 saturation of 90%. Currently 97 on 2L Normal [facility] ED Nursing Note Suction turned on at this time for pt due to increased coughing up of blood Normal [facility] ED Nursing Note Normal [facility] ED Nursing Note Normal [facility] ED Provider Noteon ED Provider Note Normal [facility] Eosinophil percentageOrdered By: Kayley Melendrez on [...] 14.7 s High 9.0 - 12.0 s [facility] MCV (mean corpuscular volume ) determinationOrdered By: Kayley Melendrez on 02-20-2025 MCV (RBC) [Entitic vol] 91.8 fL 80-94 [facility] Mean corpuscular hemoglobin (MCH) determinationOrdered By: Kayley Melendrez on 02-20-2025 MCH (RBC) [Entitic mass] 30.1 pg 27.0-32.0 [facility] Mean corpuscular hemoglobin concentration (MCHC) determinationOrdered By: Kayley Melendrez on 02-20-2025 MCHC (RBC) [Mass/Vol] 32.8 g/dL 32-36 [facility] Mean platelet volume determi nationOrdered By: Kayley Melendrez on 02-20-2025 Platelet mean volume (Bld) [Entitic vol] 9.0 fL 6.2-12.0 [facility] Monocyte percentageOrdered B y: Kayley Melendrez on 02-20-2025 Monocytes/100 WBC (Bld) 12.0 % High 0-10 [facility] Neutrophil percentageOrdered By: Kayley Melendrez on 02-20-2025 Neutrophils/100 WBC (Bld) 67.3 % 47-70 [facility] No Panel Informationon 02-20 [facility] Nucleated red blood cell per centageOrdered By: Kayley Melendrez on 02-20-2025 Nucleated RBC/100 WBC (Bld) [Ratio] 0 % 0-5 [facility] Nursing Noteon 02-20-2025 Nursing Note Pt arrived on floor via [employer] Normal [facility] PROTHROMBIN TIMEon INR Coag (PPP) [Relative time] 1.4 {INR} High 0.9-1.1 [facility] Comment on above: Result Comment: Vaughn mmended [...] Myocardial Infarction Performed By: #### L AB320, [id number] ####Phys Assistant: FENG CONSTANTINO ([phone])[facility] [place] [address] PT Coag (PPP) [Time] 14.7 s High 9.0-12.0 [facility] Comment on above: Performed By: #### L AB320, [id number] ####Phys Assistant: FENG CONSTANTINO ([phone])[facility] (SBHLAB)[address] [place] [address] PT Coag (Bld) [Time]on 02-20 INR Coag (PPP) [Relative time] 1.4 {INR} High 0.9 - 1.1 [facility] Interpretation and review of laboratory results Abnormal [facility] Platelet countOrdered By: Leisa [...] [facility] [address] [place], [address] PT Coag (PPP) [Time] 17.5 s High 11.7-14.9 [facility] Comment on above: Order Comment: 412.2 Performed By: #### L 100.0100, L500.4050, L300.3900 #### [facility] [address] [place], [address] Prothrombin timeOrdered By: Kayley Melendrez on 02-20-2025 PT Coag (PPP) [Time] 17.5 s High 11.7-14.9 [facility] RBC Auto (Bld) [#/Vol]Ordere d By: Kayley Melendrez on 02-20-2025 RBC (Bld) [#/Vol] 2.82 10*6/uL Low 4.6-6.2 [facility] Serum creatinine measurement (mass/volume)Ordered By: Kayley Melendrez on 02-20-2025 Creatinine [Mass/Vol] 3.87 mg/dL High 0.70-1.20 [facility] Serum globulin measurementOr dered By: Kayley Melendrez on 02-20-2025 Globulin (S) [Mass/Vol] 4.0 g/dL 2.2-4.2 [facility] Serum glucose measurement (m ass/volume)Ordered By: Kayley Melendrez on 02-20-2025 Glucose [Mass/Vol] 78 mg/dL 70-99 [facility] Serum or plasma alanine mayorga otransferase (ALT) measurementOrdered By: Kayley Melendrez on 02-20-2025 ALT [Catalytic activity/Vol] 13 U/L <47 [facility] Serum or plasma albumin audrey urement (mass/volume)Ordered By: Kayley Melendrez on 02-20-2025 Albumin [Mass/Vol] 3.0 g/dL Low 3.5-5.0 [facility] Serum or plasma albumin/glob ulin mass ratioOrdered By: Kayley Melendrez on 02-20-2025 Albumin/Globulin [Mass ratio] 0.8 {ratio} Low 0.9-2.4 [facility] Serum or plasma alkaline jacob sphatase measurementOrdered By: Kayley Melendrez on 02-20-2025 ALP [Catalytic activity/Vol] 133 U/L High 40-129 [facility] Serum or plasma calcium audrey urement (mass/volume)Ordered By: Kayley Melendrez on 02-20-2025 Calcium [Mass/Vol] 9.8 mg/dL 7.6-11.0 [facility] Serum or plasma urea nitroge n measurement (mass/volume)Ordered By: Kayley Melendrez on 02-20-2025 Urea nitrogen [Mass/Vol] 44 mg/dL High 4-19 [facility] Sodium levelOrdered By: Omega Melendrez on 02-20-2025 Sodium [Moles/Vol] 134 mmol/L 133-145 [facility] Total proteinOrdered By: Lexis Melendrez on 02-20-2025 Protein [Mass/Vol] 6.9 g/dL 5.9-8.4 [facility] White blood cell (WBC) count Ordered By: Kayley Melendrez on 02-20-2025 WBC (Bld) [#/Vol] 6.9 10*3/uL 4.4-11.0 [facility] aPTT Coag (Bld) [Time]on aPTT Coag (PPP) [Time] 26.2 s 20.0 - 30.5 s [facility] Interpretation and review of laboratory results Normal [facility] International normalized rat io (INR) calculationOrdered By: Kayley Melendrez on 02-15-2025 INR Coag (Bld) [Relative time] 1.3 {INR} [facility] Prothrombin Time w/INRon INR Coag (PPP) [Relative time] 1.3 {INR} Normal [facility] Comment on above: Order Comment: 412.2 Performed By: #### L 100.0100, L500.4050, L300.3900 #### [facility] [address] [place], [address] PT Coag (PPP) [Time] 16.6 s High 11.7-14.9 [facility] Comment on above: Order Comment: 412.2 Performed By: #### L 100.0100, L500.4050, L300.3900 #### [facility] [address] [place], [address] Prothrombin timeOrdered By: Kayley Melendrez on 02-15-2025 PT Coag (PPP) [Time] 16.6 s High 11.7-14.9 [facility] Progress Noteon 02-14-2025 Progress Note Patient completed 6 week course of Amp-Sulbactam on 02/13/25 for sacral osteomyelitis. Tunneled line has since been removed. Continue to monitor off antibiotics at this time. Continue wound care. Normal [facility] International normalized rat io (INR) measurement by [...] [facility] [address] [place], [address] Protime Coagsen 19.1 SEC High 11.7-14.9 [facility] Comment on above: Performed By: #### L 9200.0000 #### [facility] [address] [place], [address] Whole blood prothrombin time Ordered By: Kayley Melendrze on 02-13-2025 PT Coag (Bld) [Time] 19.1 s High 11.7-14.9 [facility] Absolute lymphocyte countOrd ered By: Kayley Melendrez on 02-12-2025 Lymphocytes Auto (Unsp spec) [#/Vol] 1.29 10*3/uL 0.83-4.51 [facility] Absolute neutrophil countOrd ered By: Kayley Melendrez on 02-12-2025 Neutrophils (Bld) [#/Vol] 4.7 10*3/uL 2.0-7.7 [facility] Anion gap in Serum or Plasma Ordered By: Kayley Melendrez on 02-12-2025 Anion gap [Moles/Vol] 12 mmol/L 5- [facility] Automated lymphocyte count a s percentage of total leukocytesOrdered By: Kayley Melendrez on 02-12-2025 Lymphocytes/100 WBC Auto (Unsp spec) 17.7 % Low - [facility] BUN/creatinine ratioOrdered By: Kayley Melendrez on 02-12-2025 Urea nitrogen/Creatinine [Mass ratio] 10.3 mg/mg 10- [facility] Basophil percentageOrdered B y: Kayley Melendrez on 02-12-2025 Basophils/100 WBC (Bld) 1.1 % High 0-1 [facility] Bilirubin, totalOrdered By: Kayley Melendrez on 02-12-2025 Bilirubin [Mass/Vol] 0.69 mg/dL 0.00-1.30 [facility] CBC W/Diff, Automatedon 01-25 Absolute Lymph 1.29 X10 3/uL Normal 0.83-4.51 [facility] Comment on above: Performed By: #### L 100.0100, L500.4050, L300.3900 #### [facility] [address] [place], [place], [id number] Absolute Neut 4.7 X10 3/uL Normal 2.0-7.7 [facility] Comment on above: Performed By: #### L 100.0100, L500.4050, L300.3900 #### [facility] [address] [place], [address] Basophils/100 WBC (Bld) 1.1 % High 0-1 [facility] Comment on above: Performed By: #### L 100.0100, L500.4050, L300.3900 #### [facility] [address] [place], [address] Eosinophils/100 WBC (Bld) 4.7 % Normal 0-5 [facility] Comment on above: Performed By: #### L 100.0100, L500.4050, L300.3900 #### [facility] [address] [place], [address] Erythrocyte distribution width (RBC) [Ratio] 18.3 % High 11.6-14.6 [facility] Comment on above: Performed By: #### L 100.0100, L500.4050, L300.3900 #### [facility] [address] [place], [address] Hematocrit (Bld) [Volume fraction] 24.6 % Low 40-54 [facility] Comment on above: Performed By: #### L 100.0100, L500.4050, L300.3900 #### [facility] [address] [place], [address] Hemoglobin (Bld) [Mass/Vol] 8.0 g/dL Low 13.0-16.5 [facility] Comment on above: Performed By: #### L 100.0100, L500.4050, L300.3900 #### [facility] [address] [place], [address] IG% 0.500 Normal 0.0-0.9 [facility] Comment on above: Result Comment: IG% - Immature Granulocytes (promyelocytes, myelocytes and metamyelocytes) > 1% indicates that a LEFT SHIFT is Present. Performed By: #### L 100.0100, L500.4050, L300.3900 #### [facility] [address] [place], [address] Lymphocytes/100 WBC (Bld) 17.7 % Low 19-41 [facility] Comment on above: Performed By: #### L 100.0100, L500.4050, L300.3900 #### [facility] [address] [place], [address] MCH (RBC) [Entitic mass] 29.3 pg Normal 27.0-32.0 [facility] Comment on above: Performed By: #### L 100.0100, L500.4050, L300.3900 #### [facility] [address] [place], [address] MCHC (RBC) [Mass/Vol] 32.5 g/dL Normal 32-36 [facility] Comment on above: Performed By: #### L 100.0100, L500.4050, L300.3900 #### [facility] [address] [place], [address] MCV (RBC) [Entitic vol] 90.1 fL Normal 80-94 [facility] Comment on above: Performed By: #### L 100.0100, L500.4050, L300.3900 #### [facility] [address] [place], [address] Monocytes/100 WBC (Bld) 11.9 % High 0-10 [facility] Comment on above: Performed By: #### L 100.0100, L500.4050, L300.3900 #### [facility] [address] [place], [address] Neutrophils/100 WBC (Bld) 64.1 % Normal 47-70 [facility] Comment on above: Performed By: #### L 100.0100, L500.4050, L300.3900 #### [facility] [address] [place], [address] Nucleated RBC (Bld) [#/Vol] 0 10*3/uL Normal 0-5 [facility] Comment on above: Performed By: #### L 100.0100, L500.4050, L300.3900 #### [facility] [address] [place], [address] Platelet mean volume (Bld) [Entitic vol] 9.2 fL Normal 6.2-12.0 [facility] Comment on above: Performed By: #### L 100.0100, L500.4050, L300.3900 #### [facility] [address] [place], [address] Platelets (Bld) [#/Vol] 294 10*3/uL Normal 150-450 [facility] Comment on above: Performed By: #### L 100.0100, L500.4050, L300.3900 #### [facility] [address] [place], [address] RBC (Bld) [#/Vol] 2.73 10*6/uL Low 4.6-6.2 [facility] Comment on above: Performed By: #### L 100.0100, L500.4050, L300.3900 #### [facility] [address] [place], [address] RDW SD 59.4 fl High 35.1-43.9 [facility] Comment on above: Performed By: #### L 100.0100, L500.4050, L300.3900 #### [facility] [address] [place], [address] WBC (Bld) [#/Vol] 7.3 10*3/uL Normal 4.4-11.0 [facility] Comment on above: Performed By: #### L 100.0100, L500.4050, L300.3900 #### [facility] [address] [place], [address] Carbon dioxide, total [Moles /volume] in Central venous bloodOrdered By: Kayley Melendrez on 02-12-2025 CO2 [Moles/Vol] 28.4 mmol/L 21.0-32.0 [facility] Chloride assayOrdered By: Leisa Melendrez on 02-12-2025 Chloride [Moles/Vol] 91 mmol/L Low 98-108 [facility] Comprehensive Metabolic Prof ilon 02-12-2025 Albumin [Mass/Vol] 2.9 g/dL Low 3.5-5.0 [facility] Comment on above: Performed By: #### L 100.0100, L500.4050, L300.3900 #### [facility] [address] [place], [address] Albumin/Globulin [Mass ratio] 0.7 {ratio} Low 0.9-2.4 [facility] Comment on above: Performed By: #### L 100.0100, L500.4050, L300.3900 #### [facility] [address] [place], [address] ALK PHOS 177 U/L High 40-129 [facility] Comment on above: Performed By: #### L 100.0100, L500.4050, L300.3900 #### [facility] [address] [place], [address] ALT [Catalytic activity/Vol] 9 U/L Normal <=46 [facility] Comment on above: Performed By: #### L 100.0100, L500.4050, L300.3900 #### [facility] [address] [place], [address] AST [Catalytic activity/Vol] 34 U/L Normal <=37 [facility] Comment on above: Performed By: #### L 100.0100, L500.4050, L300.3900 #### [facility] [address] [place], [address] Bilirubin [Mass/Vol] 0.69 mg/dL Normal 0.00-1.30 [facility] Comment on above: Performed By: #### L 100.0100, L500.4050, L300.3900 #### [facility] [address] [place], [address] BUN/CRE 10.3 RATIO Normal 10-20 [facility] Comment on above: Performed By: #### L 100.0100, L500.4050, L300.3900 #### [facility] [address] [place], [address] Calcium [Mass/Vol] 9.9 mg/dL Normal 7.6-11.0 [facility] Comment on above: Performed By: #### L 100.0100, L500.4050, L300.3900 #### [facility] [address] [place], [address] Chloride [Moles/Vol] 91 mmol/L Low 98-108 [facility] Comment on above: Performed By: #### L 100.0100, L500.4050, L300.3900 #### [facility] [address] [place], [address] CO2 [Moles/Vol] 28.4 mmol/L Normal 21.0-32.0 [facility] Comment on above: Performed By: #### L 100.0100, L500.4050, L300.3900 #### [facility] [address] [place], [address] Creatinine [Mass/Vol] 4.17 mg/dL High 0.70-1.20 [facility] Comment on above: Performed By: #### L 100.0100, L500.4050, L300.3900 #### [facility] [address] [place], [address] GAP 12 Normal 5-15 [facility] Comment on above: Performed By: #### L 100.0100, L500.4050, L300.3900 #### [facility] [address] [place], [address] GFR/1.73 sq M.predicted among non-blacks MDRD (S/P/Bld) [Vol rate/Area] 16 mL/min/{1.73_m2} Low >60 [facility] Comment on above: Result Comment: mL/m in/1.73m2 CKD-EPI Creatinine Equation (2020) Performed By: #### L 100.0100, L500.4050, L300.3900 #### [facility] [address] [place], [address] Globulin (S) [Mass/Vol] 4.2 g/dL Normal 2.2-4.2 [facility] Comment on above: Performed By: #### L 100.0100, L500.4050, L300.3900 #### [facility] [address] [place], [address] Glucose [Mass/Vol] 77 mg/dL Normal 70-99 [facility] Comment on above: Performed By: #### L 100.0100, L500.4050, L300.3900 #### [facility] [address] [place], [address] Potassium [Moles/Vol] 3.2 mmol/L Low 3.3-5.1 [facility] Comment on above: Performed By: #### L 100.0100, L500.4050, L300.3900 #### [facility] [address] [place], [address] Sodium [Moles/Vol] 131 mmol/L Low 133-145 [facility] Comment on above: Performed By: #### L 100.0100, L500.4050, L300.3900 #### [facility] [address] [place], [address] T PROT 7.1 g/dL Normal 5.9-8.4 [facility] Comment on above: Performed By: #### L 100.0100, L500.4050, L300.3900 #### [facility] [address] [place], [address] Urea nitrogen [Mass/Vol] 43 mg/dL High 4-19 [facility] Comment on above: Performed By: #### L 100.0100, L500.4050, L300.3900 #### [facility] [address] [place], [address] Eosinophil percentageOrdered By: Kayley Melendrez on 02-12-2025 Eosinophils/100 WBC (Bld) 4.7 % 0-5 [facility] Erythrocyte distribution wid th ratioOrdered By: [facility]esussamson on 02-12-2025 Erythrocyte distribution width (RBC) [Ratio] 18.3 % High 11.6-14.6 [facility] Erythrocyte distribution wid th standard deviationOrdered By: [facility] Hospitalamparo stephen on 02-12-2025 Erythrocyte distribution width (RBC) [Ratio] 59.4 fl High 35.1-43.9 [facility] Glomerular filtration rate ( GFR) estimation/1.73 sq m using serum, plasma, or whole bOrdered By: [facility] Hospitalamparo Melendrez on 02-12-2025 GFR/1.73 sq M.predicted among [...] vol] 90.1 fL 80-94 [facility] Mean corpuscular hemoglobin (MCH) determinationOrdered By: Kayley Melendrez on 02-12-2025 MCH (RBC) [Entitic mass] 29.3 pg 27.0-32.0 [facility] Mean corpuscular hemoglobin concentration (MCHC) determinationOrdered By: Kayley Melendrez on 02-12-2025 MCHC (RBC) [Mass/Vol] 32.5 g/dL 32-36 [facility] Mean platelet volume determi nationOrdered By: Kayley Melendrez on 02-12-2025 Platelet mean volume (Bld) [Entitic vol] 9.2 fL 6.2-12.0 [facility] Monocyte percentageOrdered B y: Kayley Melendrez on 02-12-2025 Monocytes/100 WBC (Bld) 11.9 % High 0-10 [facility] Neutrophil percentageOrdered By: Kayley Melendrez on 02-12-2025 Neutrophils/100 WBC (Bld) 64.1 % 47-70 [facility] Nucleated red blood cell per centageOrdered By: Kayley Melendrez on 02-12-2025 Nucleated RBC/100 WBC (Bld) [Ratio] 0 % 0-5 [facility] Platelet countOrdered By: Leisa Melendrez on 02-12-2025 Platelets (Bld) [#/Vol] 294 10*3/uL 150-450 [facility] Potassium measurement (mass/ volume)Ordered By: Kayley Melendrez on 02-12-2025 Potassium (Unsp spec) [Mass/Vol] 3.2 mmol/L Low 3.3-5.1 [facility] Prothrombin Time w/INRon INR Coag (PPP) [Relative time] 1.5 {INR} Normal [facility] Comment on above: Performed By: #### L 300.3900, L500.4050, L100.0100 #### [facility] [address] [place], [address] PT Coag (PPP) [Time] 17.9 s High 11.7-14.9 [facility] Comment on above: Performed By: #### L 300.3900, L500.4050, L100.0100 #### [facility] [address] [place], [address] Prothrombin timeOrdered By: Kayley Melendrez on 02-12-2025 PT Coag (PPP) [Time] 17.9 s High 11.7-14.9 [facility] RBC Auto (Bld) [#/Vol]Ordere d By: Kayley Melendrez on 02-12-2025 RBC (Bld) [#/Vol] 2.73 10*6/uL Low 4.6-6.2 [facility] Serum creatinine measurement (mass/volume)Ordered By: Kayley Melendrez on 02-12-2025 Creatinine [Mass/Vol] 4.17 mg/dL High 0.70-1.20 [facility] Serum globulin measurementOr dered By: Kayley Melendrez on 02-12-2025 Globulin (S) [Mass/Vol] 4.2 g/dL 2.2-4.2 [facility] Serum glucose measurement (m ass/volume)Ordered By: Kayley Melendrez on 02-12-2025 Glucose [Mass/Vol] 77 mg/dL 70-99 [facility] Serum or plasma alanine mayorga otransferase (ALT) measurementOrdered By: Kayley Melendrez on 02-12-2025 ALT [Catalytic activity/Vol] 9 U/L <47 [facility] Serum or plasma albumin audrey urement (mass/volume)Ordered By: Kayley Melendrez on 02-12-2025 Albumin [Mass/Vol] 2.9 g/dL Low 3.5-5.0 [facility] Serum or plasma albumin/glob ulin mass ratioOrdered By: Kayley Melendrez on 02-12-2025 Albumin/Globulin [Mass ratio] 0.7 {ratio} Low 0.9-2.4 [facility] Serum or plasma alkaline jacob sphatase measurementOrdered By: Kayley Melendrez on 02-12-2025 ALP [Catalytic activity/Vol] 177 U/L High 40-129 [facility] Serum or plasma calcium audrey urement (mass/volume)Ordered By: Kayley Melendrez on 02-12-2025 Calcium [Mass/Vol] 9.9 mg/dL 7.6-11.0 [facility] Serum or plasma urea nitroge n measurement (mass/volume)Ordered By: Kayley Melendrez on 02-12-2025 Urea nitrogen [Mass/Vol] 43 mg/dL High 4-19 [facility] Sodium levelOrdered By: Omega Melendrez on 02-12-2025 Sodium [Moles/Vol] 131 mmol/L Low 133-145 [facility] Total proteinOrdered By: Lexis Melendrez on 02-12-2025 Protein [Mass/Vol] 7.1 g/dL 5.9-8.4 [facility] White blood cell (WBC) count Ordered By: Kayley Melendrez on 02-12-2025 WBC (Bld) [#/Vol] 7.3 10*3/uL 4.4-11.0 [facility] International normalized rat io (INR) measurement [...] [facility] [address] [place], [address] Protime Coagsen 24.9 SEC High 11.7-14.9 [facility] Comment on above: Performed By: #### L 9200.0000 #### [facility] [address] [place], [place], [address] Whole blood prothrombin time Ordered By: Kayley Melendrez on 02-08-2025 PT Coag (Bld) [Time] 24.9 s High 11.7-14.9 [facility] [employer] normalized rat io (INR) calculationOrdered By: Jayesh Stubbs on 02-07-2025 INR Coag (Bld) [Relative time] 1.8 {INR} [facility] Prothrombin Time w/INRon INR Coag (PPP) [Relative time] 1.8 {INR} Normal [facility] Comment on above: Order Comment: 412.2 Performed By: #### L 300.3900 #### [facility] [address] [place], [place], [id number] PT Coag (PPP) [Time] 21.1 s High 11.7-14.9 [facility] Comment on above: Order Comment: 412.2 Performed By: #### L 300.3900 #### [facility] [address] [place], [place], [id number] Prothrombin timeOrdered By: Jayesh Stubbs on 02-07-2025 PT Coag (PPP) [Time] 21.1 s High 11.7-14.9 [facility] Absolute lymphocyte countOrd ered By: Kayley Melendrez on 02-05-2025 Lymphocytes Auto (Unsp spec) [#/Vol] 1.77 10*3/uL 0.83-4.51 [facility] Absolute neutrophil countOrd ered By: Kayley Melendrez on 02-05-2025 Neutrophils (Bld) [#/Vol] 4.6 10*3/uL 2.0-7.7 [facility] Anion gap in Serum or Plasma Ordered By: Kayley Melendrez on 02-05-2025 Anion gap [Moles/Vol] 18 mmol/L High 5-15 [facility] Automated lymphocyte count a s percentage of total leukocytesOrdered By: Kayley Melendrez on 02-05-2025 Lymphocytes/100 WBC Auto (Unsp spec) 22.0 % 19-41 [facility] BUN/creatinine ratioOrdered By: Kayley Melendrez on 02-05-2025 Urea nitrogen/Creatinine [Mass ratio] 4.1 mg/mg Low 10-20 [facility] Basophil percentageOrdered B y: Kayley Melendrez on 02-05-2025 Basophils/100 WBC (Bld) 1.0 % 0-1 [facility] Bilirubin, totalOrdered By: Kayley Melendrez on 02-05-2025 Bilirubin [Mass/Vol] 0.81 mg/dL 0.00-1.30 [facility] CBC W/Diff, Automatedon 01-25 Absolute Lymph 1.77 X10 3/uL Normal 0.83-4.51 [facility] Comment on above: Order Comment: 413.2 Performed By: #### L 300.3900, L500.4050, L100.0100 #### [facility] [address] [place], [address] Absolute Neut 4.6 X10 3/uL Normal 2.0-7.7 [facility] Comment on above: Order Comment: 413.2 Performed By: #### L 300.3900, L500.4050, L100.0100 #### [facility] [address] [place], [address] Basophils/100 WBC (Bld) 1.0 % Normal 0-1 [facility] Comment on above: Order Comment: 413.2 Performed By: #### L 300.3900, L500.4050, L100.0100 #### [facility] [address] [place], [address] Eosinophils/100 WBC (Bld) 4.1 % Normal 0-5 [facility] Comment on above: Order Comment: 413.2 Performed By: #### L 300.3900, L500.4050, L100.0100 #### [facility] [address] [place], [address] Erythrocyte distribution width (RBC) [Ratio] 18.8 % High 11.6-14.6 [facility] Comment on above: Order Comment: 413.2 Performed By: #### L 300.3900, L500.4050, L100.0100 #### [facility] [address] [place], [address] Hematocrit (Bld) [Volume fraction] 28.1 % Low 40-54 [facility] Comment on above: Order Comment: 413.2 Performed By: #### L 300.3900, L500.4050, L100.0100 #### [facility] [address] [place], [address] Hemoglobin (Bld) [Mass/Vol] 8.8 g/dL Low 13.0-16.5 [facility] Comment on above: Order Comment: 413.2 Performed By: #### L 300.3900, L500.4050, L100.0100 #### [facility] [address] [place], [address] IG% 0.600 Normal 0.0-0.9 [facility] Comment on above: Order Comment: 413.2 Result Comment: IG% - Immature Granulocytes (promyelocytes, myelocytes and metamyelocytes) > 1% indicates that a LEFT SHIFT is Present. Performed By: #### L 300.3900, L500.4050, L100.0100 #### [facility] [address] [place], [address] Lymphocytes/100 WBC (Bld) 22.0 % Normal 19-41 [facility] Comment on above: Order Comment: 413.2 Performed By: #### L 300.3900, L500.4050, L100.0100 #### [facility] [address] [place], [address] MCH (RBC) [Entitic mass] 29.0 pg Normal 27.0-32.0 [facility] Comment on above: Order Comment: 413.2 Performed By: #### L 300.3900, L500.4050, L100.0100 #### [facility] [address] [place], [address] MCHC (RBC) [Mass/Vol] 31.3 g/dL Low 32-36 [facility] Comment on above: Order Comment: 413.2 Performed By: #### L 300.3900, L500.4050, L100.0100 #### [facility] [address] [place], [address] MCV (RBC) [Entitic vol] 92.7 fL Normal 80-94 [facility] Comment on above: Order Comment: 413.2 Performed By: #### L 300.3900, L500.4050, L100.0100 #### [facility] [address] [place], [address] Monocytes/100 WBC (Bld) 15.6 % High 0-10 [facility] Comment on above: Order Comment: 413.2 Performed By: #### L 300.3900, L500.4050, L100.0100 #### [facility] [address] [place], [address] Neutrophils/100 WBC (Bld) 56.7 % Normal 47-70 [facility] Comment on above: Order Comment: 413.2 Performed By: #### L 300.3900, L500.4050, L100.0100 #### [facility] [address] [place], [address] Nucleated RBC (Bld) [#/Vol] 0 10*3/uL Normal 0-5 [facility] Comment on above: Order Comment: 413.2 Performed By: #### L 300.3900, L500.4050, L100.0100 #### [facility] [address] [place], [address] Platelet mean volume (Bld) [Entitic vol] 9.2 fL Normal 6.2-12.0 [facility] Comment on above: Order Comment: 413.2 Performed By: #### L 300.3900, L500.4050, L100.0100 #### [facility] [address] [place], [address] Platelets (Bld) [#/Vol] 358 10*3/uL Normal 150-450 [facility] Comment on above: Order Comment: 413.2 Performed By: #### L 300.3900, L500.4050, L100.0100 #### [facility] [address] [place], [address] RBC (Bld) [#/Vol] 3.03 10*6/uL Low 4.6-6.2 [facility] Comment on above: Order Comment: 413.2 Performed By: #### L 300.3900, L500.4050, L100.0100 #### [facility] [address] [place], [address] RDW SD 63.1 fl High 35.1-43.9 [facility] Comment on above: Order Comment: 413.2 Performed By: #### L 300.3900, L500.4050, L100.0100 #### [facility] [address] [place], [address] WBC (Bld) [#/Vol] 8.1 10*3/uL Normal 4.4-11.0 [facility] Comment on above: Order Comment: 413.2 Performed By: #### L 300.3900, L500.4050, L100.0100 #### [facility] [address] [place], [address] Carbon dioxide, total [Moles /volume] in Central venous bloodOrdered By: Kayley Melendrez on 02-05-2025 CO2 [Moles/Vol] 25.9 mmol/L 21.0-32.0 [facility] Chloride assayOrdered By: Leisa Melendrez on 02-05-2025 Chloride [Moles/Vol] 93 mmol/L Low 98-108 [facility] Comprehensive Metabolic Prof ilon 02-05-2025 Albumin [Mass/Vol] 3.1 g/dL Low 3.5-5.0 [facility] Comment on above: Order Comment: 413.2 Performed By: #### L 300.3900, L500.4050, L100.0100 #### [facility] [address] [place], [address] Albumin/Globulin [Mass ratio] 0.7 {ratio} Low 0.9-2.4 [facility] Comment on above: Order Comment: 413.2 Performed By: #### L 300.3900, L500.4050, L100.0100 #### [facility] [address] [place], [address] ALK PHOS 260 U/L High 40-129 [facility] Comment on above: Order Comment: 413.2 Performed By: #### L 300.3900, L500.4050, L100.0100 #### [facility] [address] [place], [address] ALT [Catalytic activity/Vol] 11 U/L Normal <=46 [facility] Comment on above: Order Comment: 413.2 Performed By: #### L 300.3900, L500.4050, L100.0100 #### [facility] [address] [place], [address] AST [Catalytic activity/Vol] 42 U/L High <=37 [facility] Comment on above: Order Comment: 413.2 Performed By: #### L 300.3900, L500.4050, L100.0100 #### [facility] [address] [place], [address] Bilirubin [Mass/Vol] 0.81 mg/dL Normal 0.00-1.30 [facility] Comment on above: Order Comment: 413.2 Performed By: #### L 300.3900, L500.4050, L100.0100 #### [facility] [address] [place], [address] BUN/CRE 4.1 RATIO Low 10-20 [facility] Comment on above: Order Comment: 413.2 Performed By: #### L 300.3900, L500.4050, L100.0100 #### [facility] [address] [place], [address] Calcium [Mass/Vol] 10.0 mg/dL Normal 7.6-11.0 [facility] Comment on above: Order Comment: 413.2 Performed By: #### L 300.3900, L500.4050, L100.0100 #### [facility] [address] [place], [address] Chloride [Moles/Vol] 93 mmol/L Low 98-108 [facility] Comment on above: Order Comment: 413.2 Performed By: #### L 300.3900, L500.4050, L100.0100 #### [facility] [address] [place], [address] CO2 [Moles/Vol] 25.9 mmol/L Normal 21.0-32.0 [facility] Comment on above: Order Comment: 413.2 Performed By: #### L 300.3900, L500.4050, L100.0100 #### [facility] [address] [place], [address] Creatinine [Mass/Vol] 5.27 mg/dL High 0.70-1.20 [facility] Comment on above: Order Comment: 413.2 Performed By: #### L 300.3900, L500.4050, L100.0100 #### [facility] [address] [place], [address] GAP 18 High 5-15 [facility] Comment on above: Order Comment: 413.2 Performed By: #### L 300.3900, L500.4050, L100.0100 #### [facility] [address] [place], [address] GFR/1.73 sq M.predicted among non-blacks MDRD (S/P/Bld) [Vol rate/Area] 12 mL/min/{1.73_m2} Low >60 [facility] Comment on above: Order Comment: 413.2 Result Comment: mL/m in/1.73m2 CKD-EPI Creatinine Equation (2020) Performed By: #### L 300.3900, L500.4050, L100.0100 #### [facility] [address] [place], [address] Globulin (S) [Mass/Vol] 4.3 g/dL High 2.2-4.2 [facility] Comment on above: Order Comment: 413.2 Performed By: #### L 300.3900, L500.4050, L100.0100 #### [facility] [address] [place], [address] Glucose [Mass/Vol] 65 mg/dL Low 70-99 [facility] Comment on above: Order Comment: 413.2 Performed By: #### L 300.3900, L500.4050, L100.0100 #### [facility] [address] [place], [address] Potassium [Moles/Vol] 4.5 mmol/L Normal 3.3-5.1 [facility] Comment on above: Order Comment: 413.2 Performed By: #### L 300.3900, L500.4050, L100.0100 #### [facility] [address] [place], [address] Sodium [Moles/Vol] 136 mmol/L Normal 133-145 [facility] Comment on above: Order Comment: 413.2 Performed By: #### L 300.3900, L500.4050, L100.0100 #### [facility] [address] [place], [address] T PROT 7.4 g/dL Normal 5.9-8.4 [facility] Comment on above: Order Comment: 413.2 Performed By: #### L 300.3900, L500.4050, L100.0100 #### [facility] [address] [place], [address] Urea nitrogen [Mass/Vol] 22 mg/dL High 4-19 [facility] Comment on above: Order Comment: 413.2 Performed By: #### L 300.3900, L500.4050, L100.0100 #### [facility] [address] [place], [id number] Eosinophil percentageOrdered By: Kayley Melendrez on 02-05-2025 Eosinophils/100 WBC (Bld) 4.1 % 0-5 [facility] Erythrocyte distribution wid th ratioOrdered By: [facility] on 02-05-2025 Erythrocyte distribution width (RBC) [Ratio] 18.8 % High 11.6-14.6 [facility] Erythrocyte distribution wid th standard deviationOrdered By: [facility] on 02-05-2025 Erythrocyte distribution width (RBC) [...] vol] 92.7 fL 80-94 [facility] Mean corpuscular hemoglobin (MCH) determinationOrdered By: Kayley Melendrez on 02-05-2025 MCH (RBC) [Entitic mass] 29.0 pg 27.0-32.0 [facility] Mean corpuscular hemoglobin concentration (MCHC) determinationOrdered By: Kayley Melendrez on 02-05-2025 MCHC (RBC) [Mass/Vol] 31.3 g/dL Low 32-36 [facility] Mean platelet volume determi nationOrdered By: Kayley Melendrez on 02-05-2025 Platelet mean volume (Bld) [Entitic vol] 9.2 fL 6.2-12.0 [facility] Monocyte percentageOrdered B y: Kayley Melendrez on 02-05-2025 Monocytes/100 WBC (Bld) 15.6 % High 0-10 [facility] Neutrophil percentageOrdered By: Kayley Melendrez on 02-05-2025 Neutrophils/100 WBC (Bld) 56.7 % 47-70 [facility] Nucleated red blood cell per centageOrdered By: Kayley Melendrez on 02-05-2025 Nucleated RBC/100 WBC (Bld) [Ratio] 0 % 0-5 [facility] Platelet countOrdered By: Leisa Melendrez on 02-05-2025 Platelets (Bld) [#/Vol] 358 10*3/uL 150-450 [facility] Potassium measurement (mass/ volume)Ordered By: Kayley Melendrez on 02-05-2025 Potassium (Unsp spec) [Mass/Vol] 4.5 mmol/L 3.3-5.1 [facility] RBC Auto (Bld) [#/Vol]Ordere d By: Kayley Melendrez on 02-05-2025 RBC (Bld) [#/Vol] 3.03 10*6/uL Low 4.6-6.2 [facility] Serum creatinine measurement (mass/volume)Ordered By: Kayley Melendrez on 02-05-2025 Creatinine [Mass/Vol] 5.27 mg/dL High 0.70-1.20 [facility] Serum globulin measurementOr dered By: Kayley Melendrez on 02-05-2025 Globulin (S) [Mass/Vol] 4.3 g/dL High 2.2-4.2 [facility] Serum glucose measurement (m ass/volume)Ordered By: Kayley Melendrez on 02-05-2025 Glucose [Mass/Vol] 65 mg/dL Low 70-99 [facility] Serum or plasma alanine mayorga otransferase (ALT) measurementOrdered By: Kayley Melendrez on 02-05-2025 ALT [Catalytic activity/Vol] 11 U/L <47 [facility] Serum or plasma albumin audrey urement (mass/volume)Ordered By: Kayley Melendrez on 02-05-2025 Albumin [Mass/Vol] 3.1 g/dL Low 3.5-5.0 [facility] Serum or plasma albumin/glob ulin mass ratioOrdered By: Kayley Melendrez on 02-05-2025 Albumin/Globulin [Mass ratio] 0.7 {ratio} Low 0.9-2.4 [facility] Serum or plasma alkaline jacob sphatase measurementOrdered By: Kayley Melendrez on 02-05-2025 ALP [Catalytic activity/Vol] 260 U/L High 40-129 [facility] Serum or plasma calcium audrey urement (mass/volume)Ordered By: Kayley Melendrez on 02-05-2025 Calcium [Mass/Vol] 10.0 mg/dL 7.6-11.0 [facility] Serum or plasma urea nitroge n measurement (mass/volume)Ordered By: Kayley Melendrez on 02-05-2025 Urea nitrogen [Mass/Vol] 22 mg/dL High 4-19 [facility] Sodium levelOrdered By: Omega Melendrez on 02-05-2025 Sodium [Moles/Vol] 136 mmol/L 133-145 [facility] Total proteinOrdered By: Lexis Melendrez on 02-05-2025 Protein [Mass/Vol] 7.4 g/dL 5.9-8.4 [facility] White blood cell (WBC) count Ordered By: Lexisannemariejacob Melendrez on 02-05-2025 WBC (Bld) [#/Vol] 8.1 10*3/uL 4.4-11.0 [facility] CBC panel Auto (Bld)on 02-01 Erythrocyte distribution width (RBC) [Ratio] 18.8 % High 11.5 - 15.0 % [facility] Hematocrit (Bld) [Volume fraction] 28.3 % Low 40.0 - 52.0 % [facility] Hemoglobin (Bld) [Mass/Vol] 8.9 g/dL Low 13.0 - 18.0 g/dL [facility] Interpretation and review of laboratory results Abnormal [facility] MCH (RBC) [Entitic mass] 28.2 pg 26. 0 - 34.0 pg [facility] MCHC (RBC) [Mass/Vol] 31.4 % 30.5 - 36.0 % [facility] MCV (RBC) [Entitic vol] 89.6 fL 77.0 - 99.0 fL [facility] Platelet mean volume (Bld) [Entitic vol] 9 fL 9.0 - 12.7 fL [facility] Platelets (Bld) [#/Vol] 282 10*3/uL 140 - 440 10*3/uL [facility] RBC (Bld) [#/Vol] 3.16 10*6/uL Low 4.40 - 5.9 0 10*6/uL [facility] WBC (Bld) [#/Vol] 7.9 10*3/uL 3.6 - 10.7 10*3/uL [facility] Comprehensive metabolic 1998 panelon 02-01-2025 Albumin [Mass/Vol] 2.1 g/dL Low 3.5 - 5.0 g/dL [facility] ALP [Catalytic activity/Vol] 226 U/L High 40 - 150 U/L [facility] ALT [Catalytic activity/Vol] 10 U/L NINF - 40 U/L [facility] Anion gap [Moles/Vol] 11 mmol/L 3 - 13 mmol/L [facility] AST [Catalytic activity/Vol] 32 U/L NINF - 34 U/L [facility] Bilirubin [Mass/Vol] 0.9 mg/dL NINF - 1.2 mg/dL [facility] Calcium [Mass/Vol] 9.7 mg/dL 8.4 - 10. 2 mg/dL [facility] Chloride [Moles/Vol] 99 mmol/L 98 - 10 7 mmol/L [facility] CO2 [Moles/Vol] 26 mmol/L 22 - 29 mmol/L [facility] Creatinine [Mass/Vol] 2.39 mg/dL High 0.72 - 1.25 mg/dL [facility] GFR/1.73 sq M.predicted (S/P/Bld) [Vol rate/Area] 30.5 mL/min Low - PINF [facility] Glucose [Mass/Vol] 87 mg/dL 74 - 100 mg/dL [facility] Interpretation and review of laboratory results Abnormal [facility] Potassium [Moles/Vol] 3.7 mmol/L 3.5 - 5.1 mmol/L [facility] Protein [Mass/Vol] 7.4 g/dL 6.4 - 8.3 g/dL [facility] Sodium [Moles/Vol] 136 mmol/L 136 - 145 mmol/L [facility] Urea nitrogen [Mass/Vol] 7 mg/dL Low 9 - 23 mg/d L [facility] Hemoglobin (Bld) [Mass/Vol]O rdered By: Rosa Juares on 02-01-2025 Hematocrit (Bld) [Volume fraction] 28.8 % Low 40.0 - 52.0 % [facility] Interpretation and review of laboratory results Abnormal [facility] Laboratory - Chemistry and C hemistry - challengeon 02-01-2025 Magnesium [Mass/Vol] 1.9 mg/dL 1.6 - 2 .6 mg/dL [facility] Laboratory - Coagulationon 0 02-01-2025 PT Coag (Bld) [Time] 20.3 s High 9.0 - 12.0 s [facility] - Hematology and Cell countsOrdered By: Rosa Juares on 02-01-2025 Hemoglobin (Bld) [Mass/Vol] 8.9 g/dL Low 13.0 - 18.0 g/dL [facility] Magnesium [Mass/Vol]on 02-01 [facility] No Panel Informationon 02-01 Interpretation and review of laboratory results Normal [facility] PT Coag (Bld) [Time]on 02-01 INR Coag (PPP) [Relative time] 2 {INR} High 0.9 - 1.1 [facility] Interpretation and review of laboratory results Abnormal [facility] Phosphate [Moles/Vol]on Phosphate [Mass/Vol] 3.4 mg/dL 2.3 - 4 .7 mg/dL [facility] CBC panel Auto (Bld)on 01-31 Erythrocyte distribution width (RBC) [Ratio] 19.2 % High 11.5 - 15.0 % [facility] Hematocrit (Bld) [Volume fraction] 27.9 % Low 40.0 - 52.0 % [facility] Hemoglobin (Bld) [Mass/Vol] 8.8 g/dL Low 13.0 - 18.0 g/dL [facility] Interpretation and review of laboratory results Abnormal [facility] MCH (RBC) [Entitic mass] 28.4 pg 26. 0 - 34.0 pg [facility] MCHC (RBC) [Mass/Vol] 31.5 % 30.5 - 36.0 % [facility] MCV (RBC) [Entitic vol] 90 fL 77.0 - 99.0 fL [facility] Platelet mean volume (Bld) [Entitic vol] 9 fL 9.0 - 12.7 fL [facility] Platelets (Bld) [#/Vol] 278 10*3/uL 140 - 440 10*3/uL [facility] RBC (Bld) [#/Vol] 3.1 10*6/uL Low 4.40 - 5.9 0 10*6/uL [facility] WBC (Bld) [#/Vol] 9.3 10*3/uL 3.6 - 10.7 10*3/uL [facility] Comprehensive metabolic 1998 panelon 01-31-2025 Albumin [Mass/Vol] 2.1 g/dL Low 3.5 - 5.0 g/dL [facility] ALP [Catalytic activity/Vol] 218 U/L High 40 - 150 U/L [facility] ALT [Catalytic activity/Vol] 11 U/L NINF - 40 U/L [facility] Anion gap [Moles/Vol] 12 mmol/L 3 - 13 mmol/L [facility] AST [Catalytic activity/Vol] 31 U/L NINF - 34 U/L [facility] Bilirubin [Mass/Vol] 0.8 mg/dL NINF - 1.2 mg/dL [facility] Calcium [Mass/Vol] 10 mg/dL 8.4 - 10. 2 mg/dL [facility] Chloride [Moles/Vol] 99 mmol/L 98 - 10 7 mmol/L [facility] CO2 [Moles/Vol] 27 mmol/L 22 - 29 mmol/L [facility] Creatinine [Mass/Vol] 3.64 mg/dL High 0.72 - 1.25 mg/dL [facility] GFR/1.73 sq M.predicted (S/P/Bld) [Vol rate/Area] 18.4 mL/min Low - PINF [facility] Glucose [Mass/Vol] 87 mg/dL 74 - 100 mg/dL [facility] Interpretation and review of laboratory results Abnormal [facility] Potassium [Moles/Vol] 4.3 mmol/L 3.5 - 5.1 mmol/L [facility] Protein [Mass/Vol] 7.3 g/dL 6.4 - 8.3 g/dL [facility] Sodium [Moles/Vol] 138 mmol/L 136 - 145 mmol/L [facility] Urea nitrogen [Mass/Vol] 15 mg/dL 9 - 23 mg/d L [facility] Hemoglobin (Bld) [Mass/Vol]o n 01-31-2025 Hematocrit (Bld) [Volume fraction] 28.8 % Low 40.0 - 52.0 % [facility] Interpretation and review of laboratory results Abnormal [facility] Laboratory - Chemistry and C hemistry - challengeon 01-31-2025 Magnesium [Mass/Vol] 2 mg/dL 1.6 - 2 .6 mg/dL [facility] Laboratory - Coagulationon 0 01-31-2025 PT Coag (Bld) [Time] 22.4 s High 9.0 - 12.0 s [facility] - Hematology and Cell countson 01-31-2025 Hemoglobin (Bld) [Mass/Vol] 9.2 g/dL Low 13.0 - 18.0 g/dL [facility] Magnesium [Mass/Vol]on 01-31 [facility] No Panel Informationon 01-31 Interpretation and review of laboratory results Normal [facility] PT Coag (Bld) [Time]on 01-31 INR Coag (PPP) [Relative time] 2.2 {INR} High 0.9 - 1.1 [facility] Interpretation and review of laboratory results Abnormal [facility] Phosphate [Moles/Vol]on Phosphate [Mass/Vol] 4.6 mg/dL 2.3 - 4 .7 mg/dL [facility] Basic metabolic 1998 panelon 01-30-2025 Anion gap [Moles/Vol] 13 mmol/L 3 - 13 mmol/L [facility] Calcium [Mass/Vol] 9.6 mg/dL 8.4 - 10. 2 mg/dL [facility] Chloride [Moles/Vol] 99 mmol/L 98 - 10 7 mmol/L [facility] CO2 [Moles/Vol] 23 mmol/L 22 - 29 mmol/L [facility] Creatinine [Mass/Vol] 2.56 mg/dL High 0.72 - 1.25 mg/dL [facility] GFR/1.73 sq M.predicted (S/P/Bld) [Vol rate/Area] 28.1 mL/min Low - PINF [facility] Glucose [Mass/Vol] 88 mg/dL 74 - 100 mg/dL [facility] Interpretation and review of laboratory results Abnormal [facility] Potassium [Moles/Vol] 3.7 mmol/L 3.5 - 5.1 mmol/L [facility] Sodium [Moles/Vol] 135 mmol/L Low 136 - 145 mmol/L [facility] Urea nitrogen [Mass/Vol] 10 mg/dL 9 - 23 mg/d L [facility] CBC panel Auto (Bld)on 01-30 Erythrocyte distribution width (RBC) [Ratio] 18.9 % High 11.5 - 15.0 % [facility] Hematocrit (Bld) [Volume fraction] 28.1 % Low 40.0 - 52.0 % [facility] Hemoglobin (Bld) [Mass/Vol] 8.7 g/dL Low 13.0 - 18.0 g/dL [facility] Interpretation and review of laboratory results Abnormal [facility] MCH (RBC) [Entitic mass] 27.6 pg 26. 0 - 34.0 pg [facility] MCHC (RBC) [Mass/Vol] 31 % 30.5 - 36.0 % [facility] MCV (RBC) [Entitic vol] 89.2 fL 77.0 - 99.0 fL [facility] Platelet mean volume (Bld) [Entitic vol] 9.1 fL 9.0 - 12.7 fL [facility] Platelets (Bld) [#/Vol] 276 10*3/uL 140 - 440 10*3/uL [facility] RBC (Bld) [#/Vol] 3.15 10*6/uL Low 4.40 - 5.9 0 10*6/uL [facility] WBC (Bld) [#/Vol] 8.8 10*3/uL 3.6 - 10.7 10*3/uL [facility] Hemoglobin (Bld) [Mass/Vol]O rdered By: Rikki Caballero on 01-30-2025 Hematocrit (Bld) [Volume fraction] 31.5 % Low 40.0 - 52.0 % [facility] Interpretation and review of laboratory results Abnormal [facility] Laboratory - Chemistry and C hemistry - challengeon 01-30-2025 Glucose [Mass/Vol] 106 mg/dL High 70 - 100 mg/dL [facility] Glucose [Mass/Vol] 107 mg/dL High 70 - 100 mg/dL [facility] Glucose [Mass/Vol] 77 mg/dL 70 - 100 mg/dL [facility] Magnesium [Mass/Vol] 1.9 mg/dL 1.6 - 2 .6 mg/dL [facility] Laboratory - Coagulationon 0 01-30-2025 PT Coag (Bld) [Time] 24.9 s High 9.0 - 12.0 s [facility] Laboratory - Hematology and Cell countsOrdered By: Rikki Caballero on 01-30-2025 Hemoglobin (Bld) [Mass/Vol] 9.8 g/dL Low 13.0 - 18.0 g/dL [facility] Magnesium [Mass/Vol]on 01-30 Interpretation and review of laboratory results Normal [facility] No Panel Informationon 01-30 Interpretation and review of laboratory results Abnormal [facility] RADIOLOGY SYSTEM [place] [facility] RADIOLOGY SYSTEM [facility] Radiology [facility]narrative[facility] Interpretation and review of laboratory results Abnormal [facility] Interpretation and review of laboratory results Normal [facility] Blood Expiration Date [id number] [facility] Crossmatch interpretation COMP [facility] Dispense Status Released from [employer] [facility] Product Blood Type 9500 [facility] PRODUCT CODE [id number] [facility] ABO O [facility] Unit Number [id number] [facility] alth Unit RH Negative [facility] Unit Volume 300 mL [facility] No Panel InformationOrdered By: Jun Borrero on 01-30-2025 [facility] Work Phone: PT Coag (Bld) [Time]on 01-30 INR Coag (PPP) [Relative time] 2.5 {INR} High 0.9 - 1.1 [facility] Interpretation and review of laboratory results Abnormal [facility] Phosphate [Moles/Vol]on Interpretation and review of laboratory results Normal [facility] Phosphate [Mass/Vol] 3.7 mg/dL 2.3 - 4 .7 mg/dL [facility] Basic metabolic 1998 panelon 01-29-2025 Anion gap [Moles/Vol] 17 mmol/L High 3 - 13 mmol/L [facility] Calcium [Mass/Vol] 9.8 mg/dL 8.4 - 10. 2 mg/dL [facility] Chloride [Moles/Vol] 94 mmol/L Low 98 - 10 7 mmol/L [facility] CO2 [Moles/Vol] 23 mmol/L 22 - 29 mmol/L [facility] Creatinine [Mass/Vol] 4.17 mg/dL High 0.72 - 1.25 mg/dL [facility] GFR/1.73 sq M.predicted (S/P/Bld) [Vol rate/Area] 15.6 mL/min Low - PINF [facility] Glucose [Mass/Vol] 80 mg/dL 74 - 100 mg/dL [facility] Potassium [Moles/Vol] 3.7 mmol/L 3.5 - 5.1 mmol/L [facility] Sodium [Moles/Vol] 134 mmol/L Low 136 - 145 mmol/L [facility] Urea nitrogen [Mass/Vol] 21 mg/dL 9 - 23 mg/d L [facility] CBC panel Auto (Bld)on 01-29 Erythrocyte distribution width (RBC) [Ratio] 19 % High 11.5 - 15.0 % [facility] Hematocrit (Bld) [Volume fraction] 27.3 % Low 40.0 - 52.0 % [facility] Hemoglobin (Bld) [Mass/Vol] 8.6 g/dL Low 13.0 - 18.0 g/dL [facility] Interpretation and review of laboratory results Abnormal [facility] MCH (RBC) [Entitic mass] 28.1 pg 26. 0 - 34.0 pg [facility] MCHC (RBC) [Mass/Vol] 31.5 % 30.5 - 36.0 % [facility] MCV (RBC) [Entitic vol] 89.2 fL 77.0 - 99.0 fL [facility] Platelet mean volume (Bld) [Entitic vol] 9.4 fL 9.0 - 12.7 fL [facility] Platelets (Bld) [#/Vol] 271 10*3/uL 140 - 440 10*3/uL [facility] RBC (Bld) [#/Vol] 3.06 10*6/uL Low 4.40 - 5.9 0 10*6/uL [facility] WBC (Bld) [#/Vol] 9.4 10*3/uL 3.6 - 10.7 10*3/uL [facility] Laboratory - Chemistry and C hemistry - challengeon 01-29-2025 Glucose [Mass/Vol] 82 mg/dL 70 - 100 mg/dL [facility] Glucose [Mass/Vol] 87 mg/dL 70 - 100 mg/dL [facility] Glucose [Mass/Vol] 91 mg/dL 70 - 100 mg/dL [facility] Magnesium [Mass/Vol] 2 mg/dL 1.6 - 2 .6 mg/dL [facility] Laboratory - Coagulationon 0 01-29-2025 Coagulation factor VIII activity actual/normal Coag (PPP) [Relative time] 412 % High 56 - 191 % [facility] vWf Ag actual/normal IA (PPP) [Relative mass conc] 281 % High 52 - 214 % [facility] vWf multimers Ql (PPP) See Note [facility] vWf ristocetin cofactor act actual/normal Platelet aggregation (PPP) [Relative time] 200 % 51 - 215 % [facility] th PT Coag (Bld) [Time] 24 s High 9.0 - 12.0 s [facility] Magnesium [Mass/Vol]on 01-29 Interpretation and review of laboratory results Normal [facility] No Panel Informationon 01-29 Interpretation and review of laboratory results Normal [facility] Interpretation and review of laboratory results Normal [facility] Interpretation and review of laboratory results Abnormal [facility] Interpretation and review of laboratory results Normal [facility] Interpretation and review of laboratory results Abnormal [facility] Interpretation and review of laboratory results Abnormal [facility] PT Coag (Bld) [Time]on 01-29 INR Coag (PPP) [Relative time] 2.4 {INR} High 0.9 - 1.1 [facility] Phosphate [Moles/Vol]on Phosphate [Mass/Vol] 4.9 mg/dL High 2.3 - 4 .7 mg/dL [facility] aPTT Coag (Bld) [Time]on aPTT Coag (PPP) [Time] 51.4 s High 20.0 - 30.5 s [facility] Basic metabolic 1998 panelon 01-28-2025 Anion gap [Moles/Vol] 13 mmol/L 3 - 13 mmol/L [facility] Calcium [Mass/Vol] 10 mg/dL 8.4 - 10. 2 mg/dL [facility] Chloride [Moles/Vol] 98 mmol/L 98 - 10 7 mmol/L [facility] CO2 [Moles/Vol] 26 mmol/L 22 - 29 mmol/L [facility] Creatinine [Mass/Vol] 3.37 mg/dL High 0.72 - 1.25 mg/dL [facility] GFR/1.73 sq M.predicted (S/P/Bld) [Vol rate/Area] 20.2 mL/min Low - PINF [facility] Glucose [Mass/Vol] 82 mg/dL 74 - 100 mg/dL [facility] Interpretation and review of laboratory results Abnormal [facility] Potassium [Moles/Vol] 3.6 mmol/L 3.5 - 5.1 mmol/L [facility] Sodium [Moles/Vol] 137 mmol/L 136 - 145 mmol/L [facility] Urea nitrogen [Mass/Vol] 14 mg/dL 9 - 23 mg/d L [facility] CBC panel Auto (Bld)on 01-28 Erythrocyte distribution width (RBC) [Ratio] 19 % High 11.5 - 15.0 % [facility] Hematocrit (Bld) [Volume fraction] 26.3 % Low 40.0 - 52.0 % [facility] Hemoglobin (Bld) [Mass/Vol] 8.5 g/dL Low 13.0 - 18.0 g/dL [facility] Interpretation and review of laboratory results Abnormal [facility] MCH (RBC) [Entitic mass] 28.2 pg 26. 0 - 34.0 pg [facility] MCHC (RBC) [Mass/Vol] 32.3 % 30.5 - 36.0 % [facility] MCV (RBC) [Entitic vol] 87.4 fL 77.0 - 99.0 fL [facility] Platelet mean volume (Bld) [Entitic vol] 9.3 fL 9.0 - 12.7 fL [facility] Platelets (Bld) [#/Vol] 240 10*3/uL 140 - 440 10*3/uL [facility] RBC (Bld) [#/Vol] 3.01 10*6/uL Low 4.40 - 5.9 0 10*6/uL [facility] WBC (Bld) [#/Vol] 9.8 10*3/uL 3.6 - 10.7 10*3/uL [facility] Laboratory - Chemistry and C hemistry - challengeon 01-28-2025 Glucose [Mass/Vol] 127 mg/dL High 70 - 100 mg/dL [facility] Magnesium [Mass/Vol] 2 mg/dL 1.6 - 2 .6 mg/dL [facility] Laboratory - Coagulationon 0 01-28-2025 PT Coag (Bld) [Time] 21.9 s High 9.0 - 12.0 s [facility] Magnesium [Mass/Vol]on 01-28 Interpretation and review of laboratory results Normal [facility] No Panel Informationon 01-28 Interpretation and review of laboratory results Abnormal [facility] Interpretation and review of laboratory results Abnormal [facility] PT Coag (Bld) [Time]on 01-28 INR Coag (PPP) [Relative time] 2.2 {INR} High 0.9 - 1.1 [facility] Phosphate [Moles/Vol]on Interpretation and review of laboratory results Abnormal [facility] Phosphate [Mass/Vol] 4.9 mg/dL High 2.3 - 4 .7 mg/dL [facility] aPTT Coag (Bld) [Time]on aPTT Coag (PPP) [Time] 49 s High 20.0 - 30.5 s [facility] Interpretation and review of laboratory results Abnormal [facility] aPTT Coag (PPP) [Time] 46.3 s High 20.0 - 30.5 s [facility] Basic metabolic 1998 panelon 01-27-2025 Anion gap [Moles/Vol] 17 mmol/L High 3 - 13 mmol/L [facility] Calcium [Mass/Vol] 9.9 mg/dL 8.4 - 10. 2 mg/dL [facility] Chloride [Moles/Vol] 99 mmol/L 98 - 10 7 mmol/L [facility] CO2 [Moles/Vol] 23 mmol/L 22 - 29 mmol/L [facility] Creatinine [Mass/Vol] 2.27 mg/dL High 0.72 - 1.25 mg/dL [facility] GFR/1.73 sq M.predicted (S/P/Bld) [Vol rate/Area] 32.4 mL/min Low - PINF [facility] Glucose [Mass/Vol] 115 mg/dL High 74 - 100 mg/dL [facility] Interpretation and review of laboratory results Abnormal [facility] Potassium [Moles/Vol] 3.9 mmol/L 3.5 - 5.1 mmol/L [facility] Sodium [Moles/Vol] 139 mmol/L 136 - 145 mmol/L [facility] Urea nitrogen [Mass/Vol] 9 mg/dL 9 - 23 mg/d L [facility] CBC panel Auto (Bld)on 01-27 Erythrocyte distribution width (RBC) [Ratio] 19.1 % High 11.5 - 15.0 % [facility] Hematocrit (Bld) [Volume fraction] 28.3 % Low 40.0 - 52.0 % [facility] Hemoglobin (Bld) [Mass/Vol] 9 g/dL Low 13.0 - 18.0 g/dL [facility] Interpretation and review of laboratory results Abnormal [facility] MCH (RBC) [Entitic mass] 27.6 pg 26. 0 - 34.0 pg [facility] MCHC (RBC) [Mass/Vol] 31.8 % 30.5 - 36.0 % [facility] MCV (RBC) [Entitic vol] 86.8 fL 77.0 - 99.0 fL [facility] Platelet mean volume (Bld) [Entitic vol] 8.7 fL Low 9.0 - 12.7 fL [facility] Platelets (Bld) [#/Vol] 273 10*3/uL 140 - 440 10*3/uL [facility] RBC (Bld) [#/Vol] 3.26 10*6/uL Low 4.40 - 5.9 0 10*6/uL [facility] WBC (Bld) [#/Vol] 10 10*3/uL 3.6 - 10.7 10*3/uL [facility] Hemoglobin (Bld) [Mass/Vol]o n 01-27-2025 Hematocrit (Bld) [Volume fraction] 26.3 % Low 40.0 - 52.0 % [facility] Interpretation and review of laboratory results Abnormal [facility] Laboratory - Chemistry and C hemistry - challengeon 01-27-2025 Glucose [Mass/Vol] 102 mg/dL High 70 - 100 mg/dL [facility] Glucose [Mass/Vol] 127 mg/dL High 70 - 100 mg/dL [facility] Glucose [Mass/Vol] 87 mg/dL 70 - 100 mg/dL [facility] Magnesium [Mass/Vol] 1.9 mg/dL 1.6 - 2 .6 mg/dL [facility] Laboratory - Coagulationon 0 01-27-2025 PT Coag (Bld) [Time] 19.9 s High 9.0 - 12.0 s [facility] Laboratory - Hematology and Cell countson 01-27-2025 Hemoglobin (Bld) [Mass/Vol] 8.4 g/dL Low 13.0 - 18.0 g/dL [facility] Magnesium [Mass/Vol]on 01-27 [facility] No Panel Informationon 01-27 Interpretation and review of laboratory results Abnormal [facility] Interpretation and review of laboratory results Abnormal [facility] Interpretation and review of laboratory results Normal [facility] Interpretation and review of laboratory results Abnormal [facility] Interpretation and review of laboratory results Normal [facility] PT Coag (Bld) [Time]on 01-27 INR Coag (PPP) [Relative time] 1.9 {INR} High 0.9 - 1.1 [facility] Phosphate [Moles/Vol]on Phosphate [Mass/Vol] 3.4 mg/dL 2.3 - 4 .7 mg/dL [facility] aPTT Coag (Bld) [Time]on aPTT Coag (PPP) [Time] 47.9 s High 20.0 - 30.5 s [facility] Interpretation and review of laboratory results Abnormal [facility] aPTT Coag (PPP) [Time] 49.6 s High 20.0 - 30.5 s [facility] Interpretation and review of laboratory results Abnormal [facility] aPTT Coag (PPP) [Time] 45 s High 20.0 - 30.5 s [facility] Interpretation and review of laboratory results Abnormal [facility] aPTT Coag (PPP) [Time] 40.2 s High 20.0 - 30.5 s [facility] Basic metabolic 1998 panelon 01-26-2025 Anion gap [Moles/Vol] 16 mmol/L High 3 - 13 mmol/L [facility] Calcium [Mass/Vol] 9 mg/dL 8.4 - 10. 2 mg/dL [facility] Chloride [Moles/Vol] 100 mmol/L 98 - 10 7 mmol/L [facility] CO2 [Moles/Vol] 20 mmol/L Low 22 - 29 mmol/L [facility] Creatinine [Mass/Vol] 3.37 mg/dL High 0.72 - 1.25 mg/dL [facility] GFR/1.73 sq M.predicted (S/P/Bld) [Vol rate/Area] 20.2 mL/min Low - PINF [facility] Glucose [Mass/Vol] 75 mg/dL 74 - 100 mg/dL [facility] Interpretation and review of laboratory results Abnormal [facility] Potassium [Moles/Vol] 5.1 mmol/L 3.5 - 5.1 mmol/L [facility] Sodium [Moles/Vol] 136 mmol/L 136 - 145 mmol/L [facility] Urea nitrogen [Mass/Vol] 19 mg/dL 9 - 23 mg/d L [facility] CBC panel Auto (Bld)Ordered By: Brandy Ross on 01-26-2025 Erythrocyte distribution width (RBC) [Ratio] 19.3 % High 11.5 - 15.0 % [facility] Hematocrit (Bld) [Volume fraction] 21 % Low 40.0 - 52.0 % [facility] Hemoglobin (Bld) [Mass/Vol] 6.7 g/dL Critically low 13.0 - 18.0 g/dL [facility] Interpretation and review of laboratory results Abnormal [facility] MCH (RBC) [Entitic mass] 27.8 pg 26. 0 - 34.0 pg [facility] MCHC (RBC) [Mass/Vol] 31.9 % 30.5 - 36.0 % [facility] MCV (RBC) [Entitic vol] 87.1 fL 77.0 - 99.0 fL [facility] Platelet mean volume (Bld) [Entitic vol] 10 fL 9.0 - 12.7 fL [facility] Platelets (Bld) [#/Vol] 265 10*3/uL 140 - 440 10*3/uL [facility] RBC (Bld) [#/Vol] 2.41 10*6/uL Low 4.40 - 5.9 0 10*6/uL [facility] WBC (Bld) [#/Vol] 8.7 10*3/uL 3.6 - 10.7 10*3/uL [facility] HBV surface Ab IA Qnon 01-26 [facility] HBV surface Ag IA Qlon 01-26 Interpretation and review of laboratory results Normal [facility] Hemoglobin (Bld) [Mass/Vol]o n 01-26-2025 Hematocrit (Bld) [Volume fraction] 27.9 % Low 40.0 - 52.0 % [facility] Interpretation and review of laboratory results Abnormal [facility] Hematocrit (Bld) [Volume fraction] 28.4 % Low 40.0 - 52.0 % [facility] Interpretation and review of laboratory results Abnormal [facility] Laboratory - Chemistry and C hemistry - challengeon 01-26-2025 Magnesium [Mass/Vol] 2 mg/dL 1.6 - 2 .6 mg/dL [facility] Laboratory - Coagulationon 0 01-26-2025 PT Coag (Bld) [Time] 18.3 s High 9.0 - 12.0 s [facility] Laboratory - Hematology and Cell countson 01-26-2025 Hemoglobin (Bld) [Mass/Vol] 9 g/dL Low 13.0 - 18.0 g/dL [facility] Hemoglobin (Bld) [Mass/Vol] 8.9 g/dL Low 13.0 - 18.0 g/dL [facility] Laboratory - Microbiology an d Antimicrobial susceptibilityon 01-26-2025 HBV surface Ab IA Qn mIU/mL [facility] HBV surface Ag IA Ql Not detected Not Detected [facility] Magnesium [Mass/Vol]on 01-26 Interpretation and review of laboratory results Normal [facility] No Panel Informationon 01-26 [facility] Blood Expiration Date [id number] [facility] Crossmatch interpretation COMP [facility] Dispense Status Transfused [facility] Product Blood Type 9500 [facility] PRODUCT CODE [id number] [facility] Unit ABO O [facility] Unit Number [id number] [facility] alth Unit RH Negative [facility] Unit Volume 300 mL [facility] Interpretation and review of laboratory results Abnormal [facility] PT Coag (Bld) [Time]on 01-26 INR Coag (PPP) [Relative time] 1.8 {INR} High 0.9 - 1.1 [facility] Phosphate [Moles/Vol]on Interpretation and review of laboratory results Abnormal [facility] Phosphate [Mass/Vol] 5.3 mg/dL High 2.3 - 4 .7 mg/dL [facility] aPTT Coag (Bld) [Time]on aPTT Coag (PPP) [Time] 41.6 s High 20.0 - 30.5 s [facility] Interpretation and review of laboratory results Abnormal [facility] aPTT Coag (PPP) [Time] 47 s High 20.0 - 30.5 s [facility] aPTT Coag (Bld) [Time]Ordere d By: Alan Tom on 01-26-2025 aPTT Coag (PPP) [Time] s Critically high 20.0 - 3 0.5 s [facility] Interpretation and review of laboratory results Abnormal [facility] Basic metabolic 1998 panelon 01-25-2025 Anion gap [Moles/Vol] 16 mmol/L High 3 - 13 mmol/L [facility] Calcium [Mass/Vol] 10.1 mg/dL 8.4 - 10. 2 mg/dL [facility] Chloride [Moles/Vol] 98 mmol/L 98 - 10 7 mmol/L [facility] CO2 [Moles/Vol] 24 mmol/L 22 - 29 mmol/L [facility] Creatinine [Mass/Vol] 2.54 mg/dL High 0.72 - 1.25 mg/dL [facility] GFR/1.73 sq M.predicted (S/P/Bld) [Vol rate/Area] 28.3 mL/min Low - PINF [facility] Glucose [Mass/Vol] 74 mg/dL 74 - 100 mg/dL [facility] Interpretation and review of laboratory results Abnormal [facility] Potassium [Moles/Vol] 3.9 mmol/L 3.5 - 5.1 mmol/L [facility] Sodium [Moles/Vol] 138 mmol/L 136 - 145 mmol/L [facility] Urea nitrogen [Mass/Vol] 15 mg/dL 9 - 23 mg/d L [facility] Blood type and Crossmatch pa freida (Bld)on 01-25-2025 ABO group Nom (Bld) O [facility] Blood group antibody screen GEL Ql Negative [facility] D Ag Ql (RBC) Negative [facility] CBC panel Auto (Bld)on 01-25 Erythrocyte distribution width (RBC) [Ratio] 19.2 % High 11.5 - 15.0 % [facility] Hematocrit (Bld) [Volume fraction] 22.5 % Low 40.0 - 52.0 % [facility] Hemoglobin (Bld) [Mass/Vol] 7 g/dL Low 13.0 - 18.0 g/dL [facility] Interpretation and review of laboratory results Abnormal [facility] MCH (RBC) [Entitic mass] 27.6 pg 26. 0 - 34.0 pg [facility] MCHC (RBC) [Mass/Vol] 31.1 % 30.5 - 36.0 % [facility] MCV (RBC) [Entitic vol] 88.6 fL 77.0 - 99.0 fL [facility] Platelet mean volume (Bld) [Entitic vol] 8.8 fL Low 9.0 - 12.7 fL [facility] Platelets (Bld) [#/Vol] 285 10*3/uL 140 - 440 10*3/uL [facility] RBC (Bld) [#/Vol] 2.54 10*6/uL Low 4.40 - 5.9 0 10*6/uL [facility] WBC (Bld) [#/Vol] 10.2 10*3/uL 3.6 - 10.7 10*3/uL [facility] Hemoglobin (Bld) [Mass/Vol]o n 01-25-2025 Hematocrit (Bld) [Volume fraction] 23.8 % Low 40.0 - 52.0 % [facility] Interpretation and review of laboratory results Abnormal [facility] Hematocrit (Bld) [Volume fraction] 24.4 % Low 40.0 - 52.0 % [facility] Interpretation and review of laboratory results Abnormal [facility] Hematocrit (Bld) [Volume fraction] 24.6 % Low 40.0 - 52.0 % [facility] Interpretation and review of laboratory results Abnormal [facility] Hematocrit (Bld) [Volume fraction] 20.4 % Low 40.0 - 52.0 % [facility] Interpretation and review of laboratory results Abnormal [facility] Laboratory - Chemistry and C hemistry - challengeon 01-25-2025 Magnesium [Mass/Vol] 2.1 mg/dL 1.6 - 2 .6 mg/dL [facility] Laboratory - Coagulationon 0 01-25-2025 PT Coag (Bld) [Time] 17.4 s High 9.0 - 12.0 s [facility] PT Coag (Bld) [Time] 15.9 s High 9.0 - 12.0 s [facility] Laboratory - Hematology and Cell countson 01-25-2025 Hemoglobin (Bld) [Mass/Vol] 7.6 g/dL Low 13.0 - 18.0 g/dL [facility] Hemoglobin (Bld) [Mass/Vol] 7.7 g/dL Low 13.0 - 18.0 g/dL [facility] Hemoglobin (Bld) [Mass/Vol] 8 g/dL Low 13.0 - 18.0 g/dL [facility] Hemoglobin (Bld) [Mass/Vol] 6.3 g/dL Critically low 13.0 - 18.0 g/dL [facility] Laboratory - Microbiology an d Antimicrobial susceptibilityon 01-25-2025 A. baumannii DNA EMMANUEL+probe Ql (Unsp spec) Not detected Not Detected [facility] Laboratory - Microbiology an d Antimicrobial susceptibilityOrdered By: Petra Harris on 01-25-2025 C. auris ITS2 gene EMMANUEL+probe Ql (Unsp spec) Not detected Not Detected [facility] Magnesium [Mass/Vol]on 01-25 [facility] No Panel Informationon 01-25 Interpretation and review of laboratory results Normal [facility] Blood Expiration Date S [facility] Crossmatch interpretation COMP [facility] Dispense Status Transfused [facility] Product Blood Type 9500 [facility] PRODUCT CODE [id number] [facility] Unit ABO O [facility] Unit Number [id number] [facility] alth Unit RH Negative [facility] Unit Volume 300 mL [facility] Interpretation and review of laboratory results Normal [facility] No Panel InformationOrdered By: Petra Harris on 01-25-2025 Interpretation and review of laboratory results Normal [facility] PT Coag (Bld) [Time]on 01-25 INR Coag (PPP) [Relative time] 1.7 {INR} High 0.9 - 1.1 [facility] Interpretation and review of laboratory results Abnormal [facility] INR Coag (PPP) [Relative time] 1.5 {INR} High 0.9 - 1.1 [facility] Interpretation and review of laboratory results Abnormal [facility] Phosphate [Moles/Vol]on Phosphate [Mass/Vol] 3.9 mg/dL 2.3 - 4 .7 mg/dL [facility] RF videography Hypopharynx a nd Esophagus Views for swallowing function W speech and W barium contrast Juan Carlos 01-25-2025 [facility] Radiology Study observation (narrative) [facility] RF videography Hypopharynx a nd Esophagus Views for swallowing function W speech and W barium contrast POOrdered By: Sulaimna Harp on 01-25-2025 [facility] Work Phone: aPTT Coag (Bld) [Time]on aPTT Coag (PPP) [Time] s Critically high 20.0 - 3 0.5 s [facility] Interpretation and review of laboratory results Abnormal [facility] aPTT Coag (PPP) [Time] 83.1 s High 20.0 - 30.5 s [facility] Interpretation and review of laboratory results Abnormal [facility] aPTT Coag (PPP) [Time] 47.3 s High 20.0 - 30.5 s [facility] Interpretation and review of laboratory results Abnormal [facility] Basic metabolic 1998 panelon 01-24-2025 Anion gap [Moles/Vol] 12 mmol/L 3 - 13 mmol/L [facility] Calcium [Mass/Vol] 9.3 mg/dL 8.4 - 10. 2 mg/dL [facility] Chloride [Moles/Vol] 100 mmol/L 98 - 10 7 mmol/L [facility] CO2 [Moles/Vol] 26 mmol/L 22 - 29 mmol/L [facility] Creatinine [Mass/Vol] 1.47 mg/dL High 0.72 - 1.25 mg/dL [facility] GFR/1.73 sq M.predicted (S/P/Bld) [Vol rate/Area] 54.6 mL/min Low - PINF [facility] Glucose [Mass/Vol] 77 mg/dL 74 - 100 mg/dL [facility] Interpretation and review of laboratory results Abnormal [facility] Potassium [Moles/Vol] 3.5 mmol/L 3.5 - 5.1 mmol/L [facility] Sodium [Moles/Vol] 138 mmol/L 136 - 145 mmol/L [facility] Urea nitrogen [Mass/Vol] 9 mg/dL 9 - 23 mg/d L [facility] Anion gap [Moles/Vol] 20 mmol/L High 3 - 13 mmol/L [facility] Calcium [Mass/Vol] 10.2 mg/dL 8.4 - 10. 2 mg/dL [facility] Chloride [Moles/Vol] 98 mmol/L 98 - 10 7 mmol/L [facility] CO2 [Moles/Vol] 21 mmol/L Low 22 - 29 mmol/L [facility] Creatinine [Mass/Vol] 3.62 mg/dL High 0.72 - 1.25 mg/dL [facility] GFR/1.73 sq M.predicted (S/P/Bld) [Vol rate/Area] 18.5 mL/min Low - PINF [facility] Glucose [Mass/Vol] 74 mg/dL 74 - 100 mg/dL [facility] Potassium [Moles/Vol] 4 mmol/L 3.5 - 5.1 mmol/L [facility] Sodium [Moles/Vol] 139 mmol/L 136 - 145 mmol/L [facility] Urea nitrogen [Mass/Vol] 27 mg/dL High 9 - 23 mg/d L [facility] CBC panel Auto (Bld)Ordered By: Liseth Granado on 01-24-2025 Erythrocyte distribution width (RBC) [Ratio] 19.4 % High 11.5 - 15.0 % [facility] Hematocrit (Bld) [Volume fraction] 27 % Low 40.0 - 52.0 % [facility] Hemoglobin (Bld) [Mass/Vol] 8 g/dL Low 13.0 - 18.0 g/dL [facility] Interpretation and review of laboratory results Abnormal [facility] MCH (RBC) [Entitic mass] 27.9 pg 26. 0 - 34.0 pg [facility] MCHC (RBC) [Mass/Vol] 29.6 % Low 30.5 - 36.0 % [facility] MCV (RBC) [Entitic vol] 94.1 fL 77.0 - 99.0 fL [facility] Platelet mean volume (Bld) [Entitic vol] 9.2 fL 9.0 - 12.7 fL [facility] Platelets (Bld) [#/Vol] 355 10*3/uL 140 - 440 10*3/uL [facility] RBC (Bld) [#/Vol] 2.87 10*6/uL Low 4.40 - 5.9 0 10*6/uL [facility] WBC (Bld) [#/Vol] 11.5 10*3/uL High 3.6 - 10.7 10*3/uL [facility] Hemoglobin (Bld) [Mass/Vol]o n 01-24-2025 Hematocrit (Bld) [Volume fraction] 23 % Low 40.0 - 52.0 % [facility] Interpretation and review of laboratory results Abnormal [facility] Laboratory - Chemistry and C hemistry - challengeon 01-24-2025 Lactate [Moles/Vol] 0.9 mmol/L 0.5 - 2. 2 mmol/L [facility] Laboratory - Chemistry and C hemistry - challengeOrdered By: Farhat Simons on 01-24-2025 Beta hydroxybutyrate [Mass/Vol] 10.5 mg/dL High NINF - 2.8 mg/dL [facility] Laboratory - Chemistry and C hemistry - challengeOrdered By: Anu Graham on 01-24-2025 Magnesium [Mass/Vol] 2.3 mg/dL 1.6 - 2 .6 mg/dL [facility] Laboratory - Coagulationon 0 01-24-2025 PT Coag (Bld) [Time] 15.1 s High 9.0 - 12.0 s [facility] PT Coag (Bld) [Time] 15.6 s High 9.0 - 12.0 s [facility] Laboratory - Hematology and Cell countson 01-24-2025 Hemoglobin (Bld) [Mass/Vol] 7.3 g/dL Low 13.0 - 18.0 g/dL [facility] Magnesium [Mass/Vol]Ordered By: Anu Graham on 01-24-2025 Interpretation and review of laboratory results Normal [facility] No Panel Informationon 01-24 Interpretation and review of laboratory results Abnormal [facility] Interpretation and review of laboratory results Normal [facility] Interpretation and review of laboratory results Abnormal [facility] Blood Expiration Date S [facility] Crossmatch interpretation COMP [facility] Dispense Status Released from [employer] [facility] Product Blood Type 9500 [facility] PRODUCT CODE [id number] [facility] ABO O [facility] Unit Number [id number] [facility] alth Unit RH Negative [facility] Unit Volume 300 mL [facility] No Panel InformationOrdered By: Farhat Simons on 01-24-2025 Interpretation and review of laboratory results Abnormal [facility] No Panel InformationOrdered By: Anu Graham on 01-24-2025 [facility] PT Coag (Bld) [Time]on 01-24 INR Coag (PPP) [Relative time] 1.5 {INR} High 0.9 - 1.1 [facility] INR Coag (PPP) [Relative time] 1.5 {INR} High 0.9 - 1.1 [facility] Interpretation and review of laboratory results Abnormal [facility] Phosphate [Moles/Vol]on 12-28 Phosphate [Mass/Vol] 5.1 mg/dL High 2.3 - 4 .7 mg/dL [facility] XR Chest Single viewon 01-24 [facility] Radiology Study observation (narrative) [facility] alth aPTT Coag (Bld) [Time]on aPTT Coag (PPP) [Time] 33.7 s High 20.0 - 30.5 s [facility] aPTT Coag (Bld) [Time]Ordere d By: Callie Steele on 01-24-2025 aPTT Coag (PPP) [Time] 114.7 s High 20.0 - 30.5 s [facility] Interpretation and review of laboratory results Abnormal [facility] Basic metabolic 1998 panelon 01-23-2025 Anion gap [Moles/Vol] 13 mmol/L 3 - 13 mmol/L [facility] Calcium [Mass/Vol] 9.4 mg/dL 8.4 - 10. 2 mg/dL [facility] Chloride [Moles/Vol] 102 mmol/L 98 - 10 7 mmol/L [facility] CO2 [Moles/Vol] 25 mmol/L 22 - 29 mmol/L [facility] Creatinine [Mass/Vol] 2.34 mg/dL High 0.72 - 1.25 mg/dL [facility] GFR/1.73 sq M.predicted (S/P/Bld) [Vol rate/Area] 31.3 mL/min Low - PINF [facility] Glucose [Mass/Vol] 80 mg/dL 74 - 100 mg/dL [facility] Interpretation and review of laboratory results Abnormal [facility] Potassium [Moles/Vol] 3.4 mmol/L Low 3.5 - 5.1 mmol/L [facility] Sodium [Moles/Vol] 140 mmol/L 136 - 145 mmol/L [facility] Urea nitrogen [Mass/Vol] 22 mg/dL 9 - 23 mg/d L [facility] CBC W Auto Differential pane l (Bld)on 01-23-2025 Basophils (Bld) [#/Vol] 0.1 10*3/uL 0.0 - 0.2 10*3/uL [facility] Basophils/100 WBC (Bld) 1 % 0.0 - 2.0 % [facility] Eosinophils (Bld) [#/Vol] 0.7 10*3/uL High 0.0 - 0.5 10*3/uL [facility] Eosinophils/100 WBC (Bld) 6.8 % High 0.0 - 6.0 % [facility] Erythrocyte distribution width (RBC) [Ratio] 18.8 % High 11.5 - 15.0 % [facility] Hematocrit (Bld) [Volume fraction] 25.3 % Low 40.0 - 52.0 % [facility] Hemoglobin (Bld) [Mass/Vol] 7.9 g/dL Low 13.0 - 18.0 g/dL [facility] Immature granulocytes (Bld) [#/Vol] 0.1 10*3/uL High NINF - 0.1 10*3/uL [facility] Immature granulocytes/100 WBC (Bld) 1.1 % 0.0 - 2.0 % [facility] Interpretation and review of laboratory results Abnormal [facility] Lymphocytes (Bld) [#/Vol] 1.5 10*3/uL 1.0 - 4.3 10*3/uL [facility] Lymphocytes/100 WBC (Bld) 13.7 % Low 15.0 - 45.0 % [facility] MCH (RBC) [Entitic mass] 27.9 pg 26. 0 - 34.0 pg [facility] MCHC (RBC) [Mass/Vol] 31.2 % 30.5 - 36.0 % [facility] MCV (RBC) [Entitic vol] 89.4 fL 77.0 - 99.[address] [facility] Monocytes (Bld) [#/Vol] 1.5 10*3/uL High 0.0 - 0.9 10*3/uL [facility] Monocytes/100 WBC (Bld) 13.7 % High 5.0 - 13.0 % [facility] [facility] Neutrophils (Bld) [#/Vol] 7 10*3/uL 1.8 - 7.5 10*3/uL [facility] Neutrophils/100 WBC (Bld) 63.7 % 38.0 - 82.0 % [facility] Nucleated RBC/100 WBC (Bld) [Ratio] 0 % [facility] Platelet mean volume (Bld) [Entitic vol] 9.4 fL 9.0 - 12.7 fL [facility] Platelets (Bld) [#/Vol] 346 10*3/uL 140 - 440 10*3/uL [facility] RBC (Bld) [#/Vol] 2.83 10*6/uL Low 4.40 - 5.9 0 10*6/uL [facility] WBC (Bld) [#/Vol] 10.9 10*3/uL High 3.6 - 10.7 10*3/uL [facility] Basophils (Bld) [#/Vol] 0.1 10*3/uL 0.0 - 0.2 10*3/uL [facility] Basophils/100 WBC (Bld) 1.1 % 0.0 - 2.0 % [facility] Eosinophils (Bld) [#/Vol] 0.9 10*3/uL High 0.0 - 0.5 10*3/uL [facility] Eosinophils/100 WBC (Bld) 8 % High 0.0 - 6.0 % [facility] Erythrocyte distribution width (RBC) [Ratio] 18.5 % High 11.5 - 15.0 % [facility] Hematocrit (Bld) [Volume fraction] 23.4 % Low 40.0 - 52.0 % [facility] Hemoglobin (Bld) [Mass/Vol] 7.3 g/dL Low 13.0 - 18.0 g/dL [facility] Immature granulocytes (Bld) [#/Vol] 0.1 10*3/uL High NINF - 0.1 10*3/uL [facility] Immature granulocytes/100 WBC (Bld) 1.1 % 0.0 - 2.0 % [facility] Interpretation and review of laboratory results Abnormal [facility] Lymphocytes (Bld) [#/Vol] 1.4 10*3/uL 1.0 - 4.3 10*3/uL [facility] Lymphocytes/100 WBC (Bld) 12.2 % Low 15.0 - 45.0 % [facility] MCH (RBC) [Entitic mass] 27.7 pg 26. 0 - 34.[address] [facility] MCHC (RBC) [Mass/Vol] 31.2 % 30.5 - 36.0 % [facility] MCV (RBC) [Entitic vol] 88.6 fL 77.0 - 99.[address] [facility] Monocytes (Bld) [#/Vol] 1.4 10*3/uL High 0.0 - 0.9 10*3/uL [facility] Monocytes/100 WBC (Bld) 12.9 % 5.0 - 13.0 % [facility] Neutrophils (Bld) [#/Vol] 7.2 10*3/uL 1.8 - 7.5 10*3/uL [facility] Neutrophils/100 WBC (Bld) 64.7 % 38.0 - 82.0 % [facility] Nucleated RBC/100 WBC (Bld) [Ratio] 0 % [facility] Platelet mean volume (Bld) [Entitic vol] 9.1 fL 9.0 - 12.[address] [facility] Platelets (Bld) [#/Vol] 345 10*3/uL 140 - 440 10*3/uL [facility] RBC (Bld) [#/Vol] 2.64 10*6/uL Low 4.40 - 5.9 0 10*6/uL [facility] WBC (Bld) [#/Vol] 11.1 10*3/uL High 3.6 - 10.7 10*3/uL [facility] Hemoglobin (Bld) [Mass/Vol]o n 01-23-2025 Hematocrit (Bld) [Volume fraction] 25.1 % Low 40.0 - 52.0 % [facility] Interpretation and review of laboratory results Abnormal [facility] Laboratory - Chemistry and C hemistry - challengeon 01-23-2025 Glucose [Mass/Vol] 113 mg/dL High 70 - 100 mg/dL [facility] Glucose [Mass/Vol] 92 mg/dL 70 - 100 mg/dL [facility] Magnesium [Mass/Vol] 2.1 mg/dL 1.6 - 2 .6 mg/dL [facility] Laboratory - Coagulationon 0 01-23-2025 aPTT Coag (PPP) [Time] 30.6 s High 20.0 - 30.5 s [facility] INR Coag (PPP) [Relative time] 1.6 {INR} High 0.9 - 1.1 [facility] PT Coag (Bld) [Time] 16.1 s High 9.0 - 12.0 s [facility] PT Coag (Bld) [Time] 20 s High 9.0 - 12.0 s [facility] Laboratory - Hematology and Cell countson 01-23-2025 Hemoglobin (Bld) [Mass/Vol] 7.9 g/dL Low 13.0 - 18.0 g/dL [facility] Magnesium [Mass/Vol]on 01-23 Interpretation and review of laboratory results Normal [facility] No Panel Informationon 01-23 Interpretation and review of laboratory results Abnormal [facility] Interpretation and review of laboratory results Abnormal [facility] Interpretation and review of laboratory results Normal [facility] PT Coag (Bld) [Time]on 01-23 INR Coag (PPP) [Relative time] 2 {INR} High 0.9 - 1.1 [facility] Interpretation and review of laboratory results Abnormal [facility] Phosphate [Moles/Vol]Ordered By: Jenni Romano on 01-23-2025 Interpretation and review of laboratory results Normal [facility] Phosphate [Mass/Vol] 4.5 mg/dL 2.3 - 4 .7 mg/dL [facility] Basic metabolic 1998 panelOr dered By: Nathaly Dobson on 01-22-2025 Anion gap [Moles/Vol] 13 mmol/L 3 - 13 mmol/L [facility] Calcium [Mass/Vol] 9.8 mg/dL 8.4 - 10. 2 mg/dL [facility] Chloride [Moles/Vol] 94 mmol/L Low 98 - 10 7 mmol/L [facility] CO2 [Moles/Vol] 25 mmol/L 22 - 29 mmol/L [facility] Creatinine [Mass/Vol] 4.18 mg/dL High 0.72 - 1.25 mg/dL [facility] GFR/1.73 sq M.predicted (S/P/Bld) [Vol rate/Area] 15.6 mL/min Low - PINF [facility] Glucose [Mass/Vol] 70 mg/dL Low 74 - 100 mg/dL [facility] Interpretation and review of laboratory results Abnormal [facility] Potassium [Moles/Vol] 4.4 mmol/L 3.5 - 5.1 mmol/L [facility] Sodium [Moles/Vol] 132 mmol/L Low 136 - 145 mmol/L [facility] Urea nitrogen [Mass/Vol] 53 mg/dL High 9 - 23 mg/d L [facility] CBC W Auto Differential pane l (Bld)Ordered By: Tiffanie Chand on 01-22-2025 Basophils (Bld) [#/Vol] 0.1 10*3/uL 0.0 - 0.2 10*3/uL [facility] Basophils/100 WBC (Bld) 0.8 % 0.0 - 2.0 % [facility] Eosinophils (Bld) [#/Vol] 0.7 10*3/uL High 0.0 - 0.5 10*3/uL [facility] Eosinophils/100 WBC (Bld) 6.1 % High 0.0 - 6.0 % [facility] Erythrocyte distribution width (RBC) [Ratio] 18.4 % High 11.5 - 15.0 % [facility] Hematocrit (Bld) [Volume fraction] 23.9 % Low 40.0 - 52.0 % [facility] Hemoglobin (Bld) [Mass/Vol] 7.4 g/dL Low 13.0 - 18.0 g/dL [facility] Immature granulocytes (Bld) [#/Vol] 0.1 10*3/uL High NINF - 0.1 10*3/uL [facility] Immature granulocytes/100 WBC (Bld) 1.1 % 0.0 - 2.0 % [facility] Interpretation and review of laboratory results Abnormal [facility] Lymphocytes (Bld) [#/Vol] 1 10*3/uL 1.0 - 4.3 10*3/uL [facility] Lymphocytes/100 WBC (Bld) 9.7 % Low 15.0 - 45.0 % [facility] MCH (RBC) [Entitic mass] 27.5 pg 26. 0 - 34.0 pg [facility] MCHC (RBC) [Mass/Vol] 31 % 30.5 - 36.0 % [facility] MCV (RBC) [Entitic vol] 88.8 fL 77.0 - 99.0 fL [facility] Monocytes (Bld) [#/Vol] 1.5 10*3/uL High 0.0 - 0.9 10*3/uL [facility] Monocytes/100 WBC (Bld) 14.5 % High 5.0 - 13.0 % [facility] Neutrophils (Bld) [#/Vol] 7.2 10*3/uL 1.8 - 7.5 10*3/uL [facility] Neutrophils/100 WBC (Bld) 67.8 % 38.0 - 82.0 % [facility] Nucleated RBC/100 WBC (Bld) [Ratio] 0 % [facility] Platelet mean volume (Bld) [Entitic vol] 8.2 fL Low 9.0 - 12.7 fL [facility] Platelets (Bld) [#/Vol] 292 10*3/uL 140 - 440 10*3/uL [facility] RBC (Bld) [#/Vol] 2.69 10*6/uL Low 4.40 - 5.9 0 10*6/uL [facility] WBC (Bld) [#/Vol] 10.6 10*3/uL 3.6 - 10.7 10*3/uL [facility] CBC W Auto Differential pane l (Bld)on 01-22-2025 Basophils (Bld) [#/Vol] 0.1 10*3/uL 0.0 - 0.2 10*3/uL [facility] Basophils/100 WBC (Bld) 1.1 % 0.0 - 2.0 % [facility] Eosinophils (Bld) [#/Vol] 0.8 10*3/uL High 0.0 - 0.5 10*3/uL [facility] Eosinophils/100 WBC (Bld) 7.9 % High 0.0 - 6.0 % [facility] Erythrocyte distribution width (RBC) [Ratio] 18.6 % High 11.5 - 15.0 % [facility] Hematocrit (Bld) [Volume fraction] 25.1 % Low 40.0 - 52.0 % [facility] Hemoglobin (Bld) [Mass/Vol] 8 g/dL Low 13.0 - 18.0 g/dL [facility] Immature granulocytes (Bld) [#/Vol] 0.1 10*3/uL High NINF - 0.1 10*3/uL [facility] Immature granulocytes/100 WBC (Bld) 0.8 % 0.0 - 2.0 % [facility] Interpretation and review of laboratory results Abnormal [facility] Lymphocytes (Bld) [#/Vol] 1.5 10*3/uL 1.0 - 4.3 10*3/uL [facility] Lymphocytes/100 WBC (Bld) 14.1 % Low 15.0 - 45.0 % [facility] MCH (RBC) [Entitic mass] 27.7 pg 26. 0 - 34.0 pg [facility] MCHC (RBC) [Mass/Vol] 31.9 % 30.5 - 36.0 % [facility] MCV (RBC) [Entitic vol] 86.9 fL 77.0 - 99.0 fL [facility] Monocytes (Bld) [#/Vol] 1.5 10*3/uL High 0.0 - 0.9 10*3/uL [facility] Monocytes/100 WBC (Bld) 14 % High 5.0 - 13.0 % [facility] Neutrophils (Bld) [#/Vol] 6.6 10*3/uL 1.8 - 7.5 10*3/uL [facility] Neutrophils/100 WBC (Bld) 62.1 % 38.0 - 82.0 % [facility] Nucleated RBC/100 WBC (Bld) [Ratio] 0 % [facility] Platelet mean volume (Bld) [Entitic vol] 8.8 fL Low 9.0 - 12.[address] [facility] Platelets (Bld) [#/Vol] 330 10*3/uL 140 - 440 10*3/uL [facility] RBC (Bld) [#/Vol] 2.89 10*6/uL Low 4.40 - 5.9 0 10*6/uL [facility] WBC (Bld) [#/Vol] 10.6 10*3/uL 3.6 - 10.7 10*3/uL [facility] Coagulation index TEG Qn (Bl d)Ordered By: Santhosh Acevedo on 01-22-2025 APTEM A10 72 mm High 50 - 70 mm [facility] APTEM A20 75 mm High 50 - 70 mm [facility] Clot angle TEG (Bld) [Angle] 82 High [facility] Clot formation.extrinsic coagulation system activated Rotational TEG (Bld) [Time] 200 s High 43 - 82 s [facility] Clot formation.extrinsic coagulation system activated Rotational TEG (Bld) [Time] 42 s Low 48 - 127 s [facility] Clot formation.extrinsic coagulation system activated Rotational TEG (Bld) [Time] 82 High [facility] Clot formation.extrinsic coagulation system activated Rotational TEG (Bld) [Time] 73 mm High 50 - 70 mm [facility] Clot formation.extrinsic coagulation system activated Rotational TEG (Bld) [Time] 76 mm High 52 - 70 mm [facility] Clot formation.extrinsic coagulation system activated.fibrinolysis suppressed Rotational TEG (Bld) [Time] 44 s Low 48 - 127 s [facility] Clot formation.extrinsic coagulation system activated.fibrinolysis suppressed Rotational TEG (Bld) [Time] 33 mm [facility] Clot formation.extrinsic coagulation system activated.fibrinolysis suppressed Rotational TEG (Bld) [Time] 35 mm [facility] Clot formation.extrinsic coagulation system activated.fibrinolysis suppressed Rotational TEG (Bld) [Time] 36 mm High 7 - 24 mm [facility] Clotting time.extrinsic coagulation system activated.fibrinolysis suppressed Rotational TEG (Bld) 232 s High 43 - 82 s [facility] Interpretation and review of laboratory results Abnormal [facility] Maximum clot firmness.extrinsic coagulation system activated.fibrinolysis suppressed Rotational TEG (Bld) [Length] 75 mm High 52 - 70 mm [facility] Hemoglobin (Bld) [Mass/Vol]o n 01-22-2025 Hematocrit (Bld) [Volume fraction] 24.5 % Low 40.0 - 52.0 % [facility] Interpretation and review of laboratory results Abnormal [facility] Hepatic function 2000 panelo n 01-22-2025 Albumin [Mass/Vol] 2.2 g/dL Low 3.5 - 5.0 g/dL [facility] ALP [Catalytic activity/Vol] 274 U/L High 40 - 150 U/L [facility] ALT [Catalytic activity/Vol] 44 U/L High NINF - 40 U/L [facility] AST [Catalytic activity/Vol] 51 U/L High NINF - 34 U/L [facility] Bilirubin [Mass/Vol] 0.9 mg/dL NINF - 1.2 mg/dL [facility] Bilirubin.conjugated [Mass/Vol] 0.7 mg/dL High NINF - 0.5 mg/dL [facility] Protein [Mass/Vol] 7.6 g/dL 6.4 - 8.3 g/dL [facility] Laboratory - Chemistry and C hemistry - challengeon 01-22-2025 Glucose [Mass/Vol] 101 mg/dL High 70 - 100 mg/dL [facility] Glucose [Mass/Vol] 77 mg/dL 70 - 100 mg/dL [facility] Glucose [Mass/Vol] 81 mg/dL 70 - 100 mg/dL [facility] Magnesium [Mass/Vol] 2.6 mg/dL 1.6 - 2 .6 mg/dL [facility] Glucose [Mass/Vol] 82 mg/dL 70 - 100 mg/dL [facility] Laboratory - Coagulationon 0 01-22-2025 aPTT Coag (PPP) [Time] 42.7 s High 20.0 - 30.5 s [facility] INR Coag (PPP) [Relative time] 3.1 {INR} High 0.9 - 1.1 [facility] PT Coag (Bld) [Time] 31 s High 9.0 - 12.0 s [facility] Fibrin D-dimer FEU (PPP) [Mass/Vol] 14.21 mg/L High NINF - 0.50 mg/L [facility] Fibrinogen Coag (PPP) [Mass/Vol] 436 mg/dL High 200 - 400 mg/dL [facility] Laboratory - CoagulationOrde red By: Maggy Lancaster on 01-22-2025 aPTT Coag (PPP) [Time] 48.1 s High 20.0 - 30.5 s [facility] INR Coag (PPP) [Relative time] 5.5 {INR} Critically high 0.9 - 1.1 [facility] PT Coag (Bld) [Time] 52.6 s High 9.0 - 12.0 s [facility] - CoagulationOrde red By: Michelle Olmstead on 01-22-2025 PT Coag (Bld) [Time] 75.4 s High 9.0 - 12.0 s [facility] - Hematology and Cell countson 01-22-2025 Hemoglobin (Bld) [Mass/Vol] 7.7 g/dL Low 13.0 - 18.0 g/dL [facility] Magnesium [Mass/Vol]on 01-22 Interpretation and review of laboratory results Normal [facility] No Panel Informationon 01-22 Interpretation and review of laboratory results Abnormal [facility] Interpretation and review of laboratory results Abnormal [facility] Blood Expiration Date [id number] [facility] Dispense Status Transfused [facility] Product Blood Type 6200 [facility] PRODUCT CODE [id number] [facility] ABO A [facility] Unit Number [id number] [facility] Unit RH Positive [facility] Unit Volume 209 ml [facility] Interpretation and review of laboratory results Normal [facility] Interpretation and review of laboratory results Normal [facility] Interpretation and review of laboratory results Abnormal [facility] Interpretation and review of laboratory results Abnormal [facility] Interpretation and review of laboratory results Normal [facility] No Panel InformationOrdered By: Maggy Lancaster on 01-22-2025 Interpretation and review of laboratory results Abnormal [facility] PT Coag (Bld) [Time]Ordered By: Michelle Olmstead on 01-22-2025 INR Coag (PPP) [Relative time] 8.1 {INR} Critically high 0.9 - 1.1 [facility] Interpretation and review of laboratory results Abnormal [facility] Phosphate [Moles/Vol]on 12-27 Phosphate [Mass/Vol] 6.8 mg/dL High 2.3 - 4 .7 mg/dL [facility] aPTT Coag (Bld) [Time]on aPTT Coag (PPP) [Time] 46 s High 20.0 - 30.5 s [facility] Basic metabolic 1998 panelOr dered By: Jarred José on 01-21-2025 Anion gap [Moles/Vol] 15 mmol/L High 3 - 13 mmol/L [facility] Calcium [Mass/Vol] 9.9 mg/dL 8.4 - 10. 2 mg/dL [facility] Chloride [Moles/Vol] 96 mmol/L Low 98 - 10 7 mmol/L [facility] CO2 [Moles/Vol] 24 mmol/L 22 - 29 mmol/L [facility] Creatinine [Mass/Vol] 2.99 mg/dL High 0.72 - 1.25 mg/dL [facility] GFR/1.73 sq M.predicted (S/P/Bld) [Vol rate/Area] 23.3 mL/min Low - PINF [facility] Glucose [Mass/Vol] 60 mg/dL Low 74 - 100 mg/dL [facility] Interpretation and review of laboratory results Abnormal [facility] Potassium [Moles/Vol] 4.3 mmol/L 3.5 - 5.1 mmol/L [facility] Sodium [Moles/Vol] 135 mmol/L Low 136 - 145 mmol/L [facility] Urea nitrogen [Mass/Vol] 46 mg/dL High 9 - 23 mg/d L [facility] CBC W Auto Differential pane l (Bld)on 01-21-2025 Basophils (Bld) [#/Vol] 0.1 10*3/uL 0.0 - 0.2 10*3/uL [facility] Basophils/100 WBC (Bld) 1 % 0.0 - 2.0 % [facility] Eosinophils (Bld) [#/Vol] 0.4 10*3/uL 0.0 - 0.5 10*3/uL [facility] Eosinophils/100 WBC (Bld) 3.8 % 0.0 - 6.0 % [facility] Erythrocyte distribution width (RBC) [Ratio] 18.6 % High 11.5 - 15.0 % [facility] Hematocrit (Bld) [Volume fraction] 27.3 % Low 40.0 - 52.0 % [facility] Hemoglobin (Bld) [Mass/Vol] 8.3 g/dL Low 13.0 - 18.0 g/dL [facility] Immature granulocytes (Bld) [#/Vol] 0.1 10*3/uL High NINF - 0.1 10*3/uL [facility] Immature granulocytes/100 WBC (Bld) 1.2 % 0.0 - 2.0 % [facility] Interpretation and review of laboratory results Abnormal [facility] Lymphocytes (Bld) [#/Vol] 1.7 10*3/uL 1.0 - 4.3 10*3/uL [facility] Lymphocytes/100 WBC (Bld) 16.5 % 15.0 - 45.0 % [facility] MCH (RBC) [Entitic mass] 27 pg 26. 0 - 34.0 pg [facility] MCHC (RBC) [Mass/Vol] 30.4 % Low 30.5 - 36.0 % [facility] MCV (RBC) [Entitic vol] 88.9 fL 77.0 - 99.[address] [facility] Monocytes (Bld) [#/Vol] 1.4 10*3/uL High 0.0 - 0.9 10*3/uL [facility] Monocytes/100 WBC (Bld) 14.3 % High 5.0 - 13.0 % [facility] Neutrophils (Bld) [#/Vol] 6.4 10*3/uL 1.8 - 7.5 10*3/uL [facility] Neutrophils/100 WBC (Bld) 63.2 % 38.0 - 82.0 % [facility] Nucleated RBC/100 WBC (Bld) [Ratio] 0 % [facility] Platelet mean volume (Bld) [Entitic vol] 8.7 fL Low 9.0 - 12.[address] [facility] Platelets (Bld) [#/Vol] 365 10*3/uL 140 - 440 10*3/uL [facility] RBC (Bld) [#/Vol] 3.07 10*6/uL Low 4.40 - 5.9 0 10*6/uL [facility] WBC (Bld) [#/Vol] 10.1 10*3/uL 3.6 - 10.7 10*3/uL [facility] CBC panel Auto (Bld)Ordered By: Piedad Alvarado on 01-21-2025 Erythrocyte distribution width (RBC) [Ratio] 18.6 % High 11.5 - 15.0 % [facility] Hematocrit (Bld) [Volume fraction] 25.3 % Low 40.0 - 52.0 % [facility] Hemoglobin (Bld) [Mass/Vol] 8 g/dL Low 13.0 - 18.0 g/dL [facility] Interpretation and review of laboratory results Abnormal [facility] MCH (RBC) [Entitic mass] 27.7 pg 26. 0 - 34.0 pg [facility] MCHC (RBC) [Mass/Vol] 31.6 % 30.5 - 36.0 % [facility] MCV (RBC) [Entitic vol] 87.5 fL 77.0 - 99.0 fL [facility] Platelet mean volume (Bld) [Entitic vol] 9.1 fL 9.0 - 12.7 fL [facility] Platelets (Bld) [#/Vol] 353 10*3/uL 140 - 440 10*3/uL [facility] RBC (Bld) [#/Vol] 2.89 10*6/uL Low 4.40 - 5.9 0 10*6/uL [facility] WBC (Bld) [#/Vol] 9.2 10*3/uL 3.6 - 10.7 10*3/uL [facility] Hemoglobin (Bld) [Mass/Vol]o n 01-21-2025 Hematocrit (Bld) [Volume fraction] 22.4 % Low 40.0 - 52.0 % [facility] Interpretation and review of laboratory results Abnormal [facility] Laboratory - Chemistry and C hemistry - challengeon 01-21-2025 Glucose [Mass/Vol] 86 mg/dL 70 - 100 mg/dL [facility] Glucose [Mass/Vol] 92 mg/dL 70 - 100 mg/dL [facility] Glucose [Mass/Vol] 92 mg/dL 70 - 100 mg/dL [facility] Glucose [Mass/Vol] 107 mg/dL High 70 - 100 mg/dL [facility] Glucose [Mass/Vol] 129 mg/dL High 70 - 100 mg/dL [facility] Glucose [Mass/Vol] 67 mg/dL Low 70 - 100 mg/dL [facility] Magnesium [Mass/Vol] 2.5 mg/dL 1.6 - 2 .6 mg/dL [facility] Glucose [Mass/Vol] 74 mg/dL 70 - 100 mg/dL [facility] Laboratory - CoagulationOrde red By: Treva Mcfarland on 01-21-2025 PT Coag (Bld) [Time] 73.5 s High 9.0 - 12.0 s [facility] - Hematology and Cell countson 01-21-2025 Hemoglobin (Bld) [Mass/Vol] 7.1 g/dL Low 13.0 - 18.0 g/dL [facility] Magnesium [Mass/Vol]on 01-21 Interpretation and review of laboratory results Normal [facility] No Panel Informationon 01-21 Interpretation and review of laboratory results Normal [facility] Interpretation and review of laboratory results Normal [facility] Interpretation and review of laboratory results Normal [facility] Interpretation and review of laboratory results Abnormal [facility] Interpretation and review of laboratory results Abnormal [facility] Interpretation and review of laboratory results Abnormal [facility] Interpretation and review of laboratory results Normal [facility] PT Coag (Bld) [Time]Ordered By: Treva Mcfarland on 01-21-2025 INR Coag (PPP) [Relative time] 7.9 {INR} Critically high 0.9 - 1.1 [facility] Interpretation and review of laboratory results Abnormal [facility] Phosphate [Moles/Vol]on 12-27 Interpretation and review of laboratory results Abnormal [facility] Phosphate [Mass/Vol] 5.3 mg/dL High 2.3 - 4 .7 mg/dL [facility] Basic metabolic 1998 panelon 01-20-2025 Anion gap [Moles/Vol] 15 mmol/L High 3 - 13 mmol/L [facility] Calcium [Mass/Vol] 9.2 mg/dL 8.4 - 10. 2 mg/dL [facility] Chloride [Moles/Vol] 98 mmol/L 98 - 10 7 mmol/L [facility] CO2 [Moles/Vol] 22 mmol/L 22 - 29 mmol/L [facility] Creatinine [Mass/Vol] 4.31 mg/dL High 0.72 - 1.25 mg/dL [facility] GFR/1.73 sq M.predicted (S/P/Bld) [Vol rate/Area] 15 mL/min Low - PINF [facility] Glucose [Mass/Vol] 68 mg/dL Low 74 - 100 mg/dL [facility] Interpretation and review of laboratory results Abnormal [facility] Potassium [Moles/Vol] 4.8 mmol/L 3.5 - 5.1 mmol/L [facility] Sodium [Moles/Vol] 135 mmol/L Low 136 - 145 mmol/L [facility] Urea nitrogen [Mass/Vol] 91 mg/dL High 9 - 23 mg/d L [facility] Blood type and Crossmatch pa freida (Bld)on 01-20-2025 ABO group Nom (Bld) O [facility] Blood group antibody screen GEL Ql Negative [facility] D Ag Ql (RBC) Negative [facility] CBC W Auto Differential pane l (Bld)Ordered By: Haley Vitale on 01-20-2025 Basophils (Bld) [#/Vol] 0.1 10*3/uL 0.0 - 0.2 10*3/uL [facility] Basophils/100 WBC (Bld) 1.1 % 0.0 - 2.0 % [facility] Eosinophils (Bld) [#/Vol] 0.5 10*3/uL 0.0 - 0.5 10*3/uL [facility] Eosinophils/100 WBC (Bld) 4.5 % 0.0 - 6.0 % [facility] Erythrocyte distribution width (RBC) [Ratio] 18.3 % High 11.5 - 15.0 % [facility] Hematocrit (Bld) [Volume fraction] 21.3 % Low 40.0 - 52.0 % [facility] Hemoglobin (Bld) [Mass/Vol] 6.6 g/dL Critically low 13.0 - 18.0 g/dL [facility] Immature granulocytes (Bld) [#/Vol] 0.1 10*3/uL High NINF - 0.1 10*3/uL [facility] Immature granulocytes/100 WBC (Bld) 1 % 0.0 - 2.0 % [facility] Interpretation and review of laboratory results Abnormal [facility] Lymphocytes (Bld) [#/Vol] 1.2 10*3/uL 1.0 - 4.3 10*3/uL [facility] Lymphocytes/100 WBC (Bld) 11.6 % Low 15.0 - 45.0 % [facility] MCH (RBC) [Entitic mass] 27.4 pg 26. 0 - 34.0 pg [facility] MCHC (RBC) [Mass/Vol] 31 % 30.5 - 36.0 % [facility] MCV (RBC) [Entitic vol] 88.4 fL 77.0 - 99.0 fL [facility] Monocytes (Bld) [#/Vol] 1.1 10*3/uL High 0.0 - 0.9 10*3/uL [facility] Monocytes/100 WBC (Bld) 10.1 % 5.0 - 13.0 % [facility] Neutrophils (Bld) [#/Vol] 7.5 10*3/uL 1.8 - 7.5 10*3/uL [facility] Neutrophils/100 WBC (Bld) 71.7 % 38.0 - 82.0 % [facility] Nucleated RBC/100 WBC (Bld) [Ratio] 0 % [facility] Platelet mean volume (Bld) [Entitic vol] 9 fL 9.0 - 12.7 fL [facility] Platelets (Bld) [#/Vol] 279 10*3/uL 140 - 440 10*3/uL [facility] RBC (Bld) [#/Vol] 2.41 10*6/uL Low 4.40 - 5.9 0 10*6/uL [facility] WBC (Bld) [#/Vol] 10.5 10*3/uL 3.6 - 10.7 10*3/uL [facility] CT Abdomen and Pelvis W cont rast Dimitrios 01-20-2025 [facility] Radiology Study observation (narrative) [facility] CT Abdomen and Pelvis W cont rast IVOrdered By: Karly Parker on 01-20-2025 [facility] Work Phone: Hemoglobin (Bld) [Mass/Vol]o n 01-20-2025 Hematocrit (Bld) [Volume fraction] 25.8 % Low 40.0 - 52.0 % [facility] Interpretation and review of laboratory results Abnormal [facility] Hematocrit (Bld) [Volume fraction] 25.7 % Low 40.0 - 52.0 % [facility] Interpretation and review of laboratory results Abnormal [facility] Hematocrit (Bld) [Volume fraction] 25.8 % Low 40.0 - 52.0 % [facility] Interpretation and review of laboratory results Abnormal [facility] Laboratory - Chemistry and C hemistry - challengeon 01-20-2025 Magnesium [Mass/Vol] 2.8 mg/dL High 1.6 - 2 .6 mg/dL [facility] Laboratory - Hematology and Cell countson 01-20-2025 Hemoglobin (Bld) [Mass/Vol] 8.3 g/dL Low 13.0 - 18.0 g/dL [facility] Hemoglobin (Bld) [Mass/Vol] 8.2 g/dL Low 13.0 - 18.0 g/dL [facility] Hemoglobin (Bld) [Mass/Vol] 8.2 g/dL Low 13.0 - 18.0 g/dL [facility] Magnesium [Mass/Vol]on 01-20 [facility] No Panel Informationon 01-20 Interpretation and review of laboratory results Abnormal [facility] Phosphate [Moles/Vol]on 12-27 Phosphate [Mass/Vol] 6.1 mg/dL High 2.3 - 4 .7 mg/dL [facility] No Panel Informationon 01-19 P Zwolle 69 degrees [facility] TX Interval 148 ms [facility] QRS Zwolle 93 degrees [facility] QRSD Interval 113 ms [facility] h QT Interval 413 ms [facility] QTC Interval 515 ms [facility] T Wave Zwolle 87 degrees [facility] CV EPIPHANY [facility] 4h Troponin HS (Serial 3rd Troponin) 94 ng/L High NINF - 35 ng/L [facility] Interpretation and review of laboratory results Abnormal [facility] 2h Troponin HS (Serial 2nd Troponin) 106 ng/L High NINF - 35 ng/L [facility] Interpretation and review of laboratory results Abnormal [facility] Vital signson 01-19-2025 Heart rate 93 /min bpm [facility] Airwayon 10-12-2024 Rudolph German CRNA 10/12/2024 7:56 AM Airway Date/Time: 10/12/2024 7:38 AM Urgency: scheduled Airway not difficult General Information and Staff Patient location during procedure: Procedural Anesthesiologist: Vincent Wilson MD Resident/MANAGER EMS: Rudolph German CRNA Performed: anesthesiologist Indications and [...] 21 Number of attempts at approach: 1 [facility] Arterial Lineon 10-12-2024 Rudolph [...] procedure well with no complications. Staffing Performed: MANAGER EMS Resident/MANAGER EMS: Rudolph German CRNA [facility] Central Venous Lineon 2024 Rudolph German CRNA [...] during the procedure: no complications. Staffing Performed: MANAGER EMS Resident/MANAGER EMS: Rudolph German CRNA [facility] No Panel Informationon 10-12 [facility] [address] Head WO contraston 2024 No acute intracranial hemorrhage or large territorial infarct. Nonspecific small air locules within the scalp adjacent to the right temporal bone and within the right buyer grain space. Pneumatized secretions within the maxillary sinuses may correspond with acute sinusitis in the appropriate clinical setting. Report Dictated on Electronically Signed By: Yvonne Abraham DO Electronically Signed Date/Time: 10/03/2024 2:14 PM [facility] Patient Name: JUN [...] right temporal bone and within the right buyer grain space. [facility] [employer] [facility] Yvonne Abraham DO - 10/03/2024 [facility] Name: JUN SNYDER : 1965 [id number] Exam Date/Time: 10/03/2024 11:26 Procedure: CT HEAD [...] right temporal bone and within the right buyer grain space. IMPRESSION: No acute intracranial hemorrhage or large territorial infarct. Nonspecific small air locules within the scalp adjacent to the right temporal bone and within the right buyer grain space. Pneumatized secretions within the maxillary sinuses may correspond with acute sinusitis in the appropriate clinical setting. Report Dictated on Electronically Signed By: Yvonne Abraham DO Electronically Signed Date/Time: 10/03/2024 2:[address] [facility] Radiology Study observation (narrative) [facility] Head WO contrastOrdered B y: Yvonne Abraham on 10-03-2024 [facility] Work Phone: XR Chest Single viewon 10-03 No focal consolidation or pulmonary edema. Report Dictated on Electronically Signed By: Bob Ken MD Electronically Signed Date/Time: 10/03/2024 12:22 PM EST [facility] Patient Name: JUN SNYDER : [...] change of the thoracic spine is noted. [facility] Bob Ken MD - 10/03/2024 Patient Name: JUN SNYDER : 1965 Exam Date/Time: 10/03/2024 12:12 Procedure: XR CHEST 1 VIEW Ordering Provider: FRNAK NISHIT Reason For Exam: CHEST PAIN PORTABLE [...] Electronically Signed Date/Time: 10/03/2024 12:22 PM EST [facility] Radiology Study observation (narrative) [facility] XR Chest Single viewOrdered By: Bob Ken on 10-03-2024 [facility] Work Phone: ECG 12 leadon 08-28-2024 Sinus Rhythm -Incomplete right bundle branch block. -Left atrial enlargement. Voltage criteria for LVH (S(V1)+R(V6) exceeds 3.50 mV). -ST depression -Seen with left ventricular hypertrophy (strain) -consider ischemia. [facility] CNPAllison [facility] JUN SNY[facility] Adrianna ([id number]) 1965 M Date Time Provider Department 04/12/24 [...] Status:Closed by LANIE LUIS on 04/12/24 Normal [facility] ECG 12 leadon 11-12-2023 Sinus Rhythm -Left atrial enlargement. IRBBB LVH with repolarization ABNORMAL [facility] ECG 12 leadOrdered By: Michaela Coombs on 11-12-2023 [facility] Work Phone: Basic metabolic 1998 panelon 08-17-2023 Anion gap [Moles/Vol] 15 mmol/L High 3 - 13 mmol/L [facility] Calcium [Mass/Vol] 8.7 mg/dL 8.4 - 10. 4 mg/dL [facility] Chloride [Moles/Vol] 94 mmol/L Low 98 - 10 7 mmol/L [facility] CO2 [Moles/Vol] 26 mmol/L 22 - 30 mmol/L [facility] Creatinine [Mass/Vol] 6.78 mg/dL High 0.66 - 1.25 mg/dL [facility] GFR/1.73 sq M.predicted MDRD (S/P/Bld) [Vol rate/Area] 8.8 mL/min/{1.73_m2} Low - PINF [facility] [employer] [email or web address] Comment on above: Calculation based on the Chronic Kidney Disease Epidemiology Collaboration (CKD-EPI) equation refit without adjustment for race Glucose [Mass/Vol] 102 mg/dL High 70 - 100 mg/dL [facility] Interpretation and review of laboratory results Abnormal [facility] Potassium [Moles/Vol] 5.0 mmol/L 3.5 - 5.1 mmol/L [facility] Sodium [Moles/Vol] 134 mmol/L Low 135 - 145 mmol/L [facility] Urea nitrogen [Mass/Vol] 46 mg/dL High 9 - 20 mg/d L [facility] Laboratory - Chemistry and C hemistry - challengeon 08-17-2023 Magnesium [Mass/Vol] 2.1 mg/dL 1.6 - 2 .3 mg/dL [facility] TSH Qn 0.981 m[IU]/L [facility] ABODO TSH Qn 1.190 m[IU]/L [facility] Troponin I.cardiac [Mass/Vol] 0.094 ng/mL High NINF - 0.034 ng/mL [facility] Magnesium [Mass/Vol]on 08-17 Interpretation and review of laboratory results Normal [facility] No Panel InformationOrdered By: Ruy Milton on 08-17-2023 P Zwolle degrees [facility] Work Phone: TX Interval ms [facility] Work Phone: QRS Zwolle 61 degrees [employer] Phone: QRSD Interval 114 ms [facility] [employer] [facility] Work Phone: QT Interval 364 ms [facility] Work Phone: QTC Interval 491 ms [facility] Work Phone: T Wave Zwolle -20 degrees [employer] Phone: [facility] Work Phone: No Panel Informationon 08-17 ATRIAL [...] On 08-17-2023 6:57:31 EST by Ruy Milton [facility] TSH Qnon 08-17-2023 Interpretation and review of laboratory results Normal [facility] Interpretation and review of laboratory results Normal [facility] Troponin I.cardiac [Mass/Vol ]on 08-17-2023 Interpretation and review of laboratory results Abnormal [facility] Patients with high levels of Biotin oral intake (ie >5 mg/day) may have falsely decreased Troponin levels. [facility] US Heart TransthoracicOrdere d By: Jr Shah on 08-17-2023 Ao Root Index 1.58 cm/m2 [facility] Work Phone: Aortic Root 3.3 cm [facility] Work Phone: Ascending Aorta 3.3 cm [facility] Work Phone: Ascending Aorta Index 1.58 cm/m2 [facility] Work Phone: AV Area by Peak Velocity 1.[address] [facility] Work Phone: AV Area by VTI 1.1 cm2 [facility] Work Phone: AV AT 97.05 ms [facility] Work Phone: AV Mean Gradient 34 mmHg [facility] Work Phone: AV Mean Velocity 2.7 m/s [facility] Work Phone: AV Peak Gradient 59 [facility] Work Phone: AV Peak Velocity 3.8 m/s [facility] Work Phone: [phone] AV Velocity Ratio 0.26 [facility] Work Phone: [phone] AV VTI 84.0 cm [facility] Work Phone: MALU/BSA Peak Velocity 0.5 cm2/m2 [facility] Work Phone: [phone] MALU/BSA VTI 0.5 cm2/m2 [facility] Work Phone: E/E' Lateral 11.44 [facility] Work Phone: E/E' Ratio (Averaged) 13.08 [facility] Work Phone: [phone] E/E' Septal 14.71 [facility] Work Phone: EF BP 62 % 55 - 100 % [facility] Work Phone: Est. RA Pressure 0 mmHg [facility] Work Phone: [phone] Fractional Shortening 2D 30 % 28 - 44 % [facility] Work Phone: [phone] Interpretation and review of laboratory results Abnormal [facility] Work Phone: [phone] IVC Diameter 1.[address] [facility] Work Phone: IVSd 1.1 cm Abnormal 0.6 - 1.0 cm [facility] Work Phone: LA Diameter 4.[address] [facility] Work Phone: [phone] LA Size Index 1.91 cm/m2 [facility] Work Phone: [phone] LA Volume 2C 66 mL Abnormal 18 - [address] [facility] Work Phone: [phone] LA Volume 4C 71 mL Abnormal 18 - [address] [facility] Work Phone: [phone] LA Volume A/L 75 mL [facility] Work Phone: LA Volume BP 69 mL Abnormal 18 - [address] [facility] Work Phone: [phone] LA Volume Index 2C 32 mL/m2 16 - 34 mL/m2 [facility] Work Phone: LA Volume Index 4C 34 mL/m2 16 - 34 mL/m2 [facility] Work Phone: LA Volume Index A/L 36 mL/m2 16 - 34 mL/m2 [facility] Work Phone: LA Volume Index BP 33 ml/m2 16 - 34 ml/m2 [facility] Work Phone: LA/AO Root Ratio 1.21 [facility] Work Phone: LV E' Lateral Velocity 9 cm/s [facility] Work Phone: LV E' Septal Velocity 7 cm/s [facility] Work Phone: LV EDV A2C 104 mL [facility] Work Phone: LV EDV A4C 89 mL [facility] Work Phone: LV EDV BP 97 mL 67 - 155 mL [facility] Work Phone: LV EDV Index A2C 50 mL/m2 [facility] Work Phone: LV EDV Index A4C 43 mL/m2 [facility] Work Phone: LV EDV Index BP 46 mL/m2 [facility] Work Phone: LV Ejection Fraction A2C 61 % [facility] Work Phone: LV Ejection Fraction A4C 64 % [facility] Work Phone: LV ESV A2C 41 [...] Index 83.1 g/m2 49 - 115 g/m2 [facility] Work Phone: LV RWT Ratio 0.56 [facility] Work Phone: LVIDd 4.3 cm 4.2 - 5.[address] [facility] Work Phone: LVIDd Index 2.06 cm/m2 [facility] Work Phone: LVIDs 3.[address] [facility] Work Phone: LVIDs Index 1.44 cm/m2 [facility] Work Phone: LVOT Area 4.[address] [facility] Work Phone: LVOT Cardiac Output 7.6 liter/minute [facility] Work Phone: LVOT Diameter 2.[address] [facility] Work Phone: [phone] LVOT Mean Gradient [address] [facility] Work Phone: [phone] LVOT Peak Gradient [address] [facility] Work Phone: LVOT Peak Velocity 1.0 m/s [facility] Work Phone: [phone] LVOT Stroke Volume Index 46.5 mL/m2 [facility] Work Phone: [phone] LVOT SV 97.[address] [facility] Work Phone: [phone] LVOT VTI 23.[address] [facility] Work Phone: [phone] LVOT:AV VTI Index 0.28 [facility] Work Phone: LVPWd 1.2 cm Abnormal 0.6 - 1.[address] [facility] Work Phone: [phone] MV A Velocity 0.79 m/s [facility] Work Phone: [phone] MV Area by PHT 1.[address] [facility] Work Phone: MV E Velocity 1.03 m/s [facility] Work Phone: [phone] MV E Wave Deceleration Time 278.[address] [facility] Work Phone: [phone] MV E/A 1.30 [facility] Work Phone: MV Mean Gradient 3 mmHg [facility] Work Phone: [phone] MV Peak Gradient 6 mmHg [facility] Work Phone: MV PHT 113.0 ms [facility] Work Phone: [phone] RA Area 4C 79.9 mL [facility] Work Phone: [phone] RA Area 4C 77.[address] [facility] Work Phone: [phone] RV Basal Dimension 4.6 cm [facility] Work Phone: [phone] RV Mid Dimension 3.3 cm [facility] Work Phone: [phone] [facility] Work Phone: [phone] Sinotubular [place]unction 3.0 cm [facility] Work Phone: [phone] TR Max Velocity 2.72 m/s [facility] Work Phone: [phone] TR Peak Gradient 30 mmHg [facility] Work Phone: [phone] [facility] Work Phone: [phone] Heart Transthoracicon [...] on 08-17-2023 Heart rate 109 /min bpm [facility] Work Phone: Basic metabolic 1998 panelon 08-16-2023 Anion gap [Moles/Vol] 15 mmol/L High 3 - 13 mmol/L [facility] Calcium [Mass/Vol] 9.1 mg/dL 8.4 - 10. 4 mg/dL [facility] Chloride [Moles/Vol] 93 mmol/L Low 98 - 10 7 mmol/L [facility] CO2 [Moles/Vol] 25 mmol/L 22 - 30 mmol/L [facility] Creatinine [Mass/Vol] 6.01 mg/dL High 0.66 - 1.25 mg/dL [facility] GFR/1.73 sq M.predicted MDRD (S/P/Bld) [Vol rate/Area] 10.2 mL/min/{1.73_m2} Low - PINF [facility] Comment on above: Calculation based on the Chronic Kidney Disease Epidemiology Collaboration (CKD-EPI) equation refit without adjustment for race Glucose [Mass/Vol] 110 mg/dL High 70 - 100 mg/dL [facility] Interpretation and review of laboratory results Abnormal [facility] Potassium [Moles/Vol] 4.5 mmol/L 3.5 - 5.1 mmol/L [facility] Sodium [Moles/Vol] 133 mmol/L Low 135 - 145 mmol/L [facility] Urea nitrogen [Mass/Vol] 40 mg/dL High 9 - 20 mg/d L [facility] CBC W Auto Differential pane l (Bld)Ordered By: Aric Montejo on 08-16-2023 Basophils (Bld) [#/Vol] 0.1 10*3/uL 0.0 - 0.2 10*3/uL [facility] Basophils/100 WBC (Bld) 1.3 % 0.0 - 2.0 % [facility] Eosinophils (Bld) [#/Vol] 0.5 10*3/uL 0.0 - 0.5 10*3/uL [facility] Eosinophils/100 WBC (Bld) 5.1 % 1.0 - 6.0 % [facility] Erythrocyte distribution width (RBC) [Ratio] 14.7 % High 11.5 - 14.5 % [facility] Hematocrit (Bld) [Volume fraction] 41.6 % 40.0 - 52.0 % [facility] Hemoglobin (Bld) [Mass/Vol] 14.5 g/dL 13.0 - 18.0 g/dL [facility] Interpretation and review of laboratory results Abnormal [facility] Lymphocytes (Bld) [#/Vol] 1.3 10*3/uL 1.0 - 4.3 10*3/uL [facility] Lymphocytes/100 WBC (Bld) 14.2 % Low 20.0 - 40.0 % [facility] MCH (RBC) [Entitic mass] 31.5 pg 26. 0 - 34.0 pg [facility] MCHC (RBC) [Mass/Vol] 34.8 % 32.0 - 36.0 % [facility] MCV (RBC) [Entitic vol] 90.5 fL 80.0 - 98.0 fL [facility] Monocytes (Bld) [#/Vol] 1.3 10*3/uL High 0.0 - 0.8 10*3/uL [facility] Monocytes/100 WBC (Bld) 13.5 % High 2.0 - 10.0 % [facility] Neutrophils (Bld) [#/Vol] 6.2 10*3/uL 1.8 - 7.0 10*3/uL [facility] Neutrophils/100 WBC (Bld) 65.9 % 40.0 - 80.0 % [facility] Nucleated RBC/100 WBC (Bld) [Ratio] 0.1 % [facility] Platelet mean volume (Bld) [Entitic vol] 7.3 fL Low 7.4 - 12.4 fL [facility] Platelets (Bld) [#/Vol] 254 10*3/uL 140 - 440 10*3/uL [facility] RBC (Bld) [#/Vol] 4.60 10*6/uL 4.40 - 5.9 0 10*6/uL [facility] WBC (Bld) [#/Vol] 9.5 10*3/uL 3.6 - 10.7 10*3/uL [facility] Laboratory - Chemistry and C hemistry - challengeon 08-16-2023 Troponin I.cardiac [Mass/Vol] 0.062 ng/mL High [facility] - 0.034 ng/mL [facility] Troponin I.cardiac [Mass/Vol] 0.037 ng/mL High [facility] - 0.034 ng/mL [facility] Troponin I.cardiac [Mass/Vol ]on 08-16-2023 Interpretation and review of laboratory results Abnormal [facility] Patients with high levels of Biotin oral intake (ie >5 mg/day) may have falsely decreased Troponin levels. [facility] Interpretation and review of laboratory results Abnormal [facility] Patients with high levels of Biotin oral intake (ie >5 mg/day) may have falsely decreased Troponin levels. [facility] XR Chest Single viewon 08-16 1. Cardiomegaly. 2. No other acute findings. Report Dictated on Electronically Signed By: Justo Milan MD Electronically Signed Date/Time: 08/16/2023 6:42 PM [facility] Patient Name: JUN SNYDER : 1965 Exam Date/Time: 08/16/2023 18:39 Procedure: XR CHEST 1 VIEW Ordering Provider: GRANADOS SHAYA Reason For Exam: CHEST PAIN CHEST PORTABLE CLINICAL INDICATION: CHEST PAIN TECHNIQUE: Portable chest x-ray(s). COMPARISON: September,. FINDINGS: Mild cardiomegaly, stable. Lungs are grossly clear. No significant vascular congestion. No apparent pneumothorax. Bony thorax grossly unremarkable. [facility] Justo Milan MD - 08/16/2023 [...] Electronically Signed Date/Time: 08/16/2023 6:42 PM EST [facility] Radiology Study observation (narrative) [facility] XR Chest Single viewOrdered By: Justo Milan on 08-16-2023 [facility] Work Phone: POTASSIUM BLDon 12-17-2022 Potassium [Moles/Vol] 7.6 mmol/L Critically high 3.7-5.1 [facility] Comment on above: Order Comment: Speci men Type: BLOOD SPECIMEN Ordering Facility: [facility] Address: , , Performed By: #### K 1 #### [facility] CLIA [id number] 1 [place] [address] [place] POTASSIUM BLDon 08-19-2022 Potassium [Moles/Vol] 7.0 mmol/L Critically high 3.7-5.1 [facility] Comment on above: Order Comment: Dominick richards Type: BLOOD SPECIMEN Ordering Facility: [facility] Address: , , Performed By: #### K 1 #### [facility] CLIA [id number] [address] POTASSIUM BLDon 06-16-2022 Potassium [Moles/Vol] 6.3 mmol/L Critically high 3.7-5.1 [facility] Comment on above: Order Comment: Dominick richards Type: BLOOD SPECIMEN Ordering Facility: [facility] Address: , , Performed By: #### K 1 #### [facility] [place] CLIA [id number] [address] OF [place] Hgb Bld-mCncon 05-12-2022 Hemoglobin (Bld) [Mass/Vol] 8.4 g/dL Low 13.0-17.0 [facility] Comment on above: Order Comment: Dominick richards Type: BLOOD SPECIMEN Ordering Facility: [facility] Address: , , Performed By: #### 7 18-7 #### [facility] CLIA [id number] [address] OF [facility] XA Special Angiography Proce [facility] 09-15-2021 XA Special Angiography Procedure Patient Name: JUN SNYDER Special Procedures ACCESSION EXAM DATE/TIME PROCEDURE ORDERING PROVIDER [id number] 09/15/2021 11:10 EST XA Special Angiography MD [...] and the needle was removed. A 3 Guatemalan dilator was advanced over the wire and [...] after procedure termination. Report Dictated on Workstation: [id number] Final Dictating Physician: MD VICENTE CHRISTOPHER Signed Date and Time: 09/15/2021 12:15 pm Signed by: MD VICENTE CHRISTOPHER Transcribed Date and Time: 09/15/2021 12:16 [facility] IR DIALYSIS INJ W/ANGIOPLAST Yon 11-22-2020 IR DIALYSIS INJ W/ANGIOPLASTY Final Report DATE OF EXAM: Nov 22 2020 2:02PM [facility] 0944 - IR DIALYSIS INJ W/ANGIOPLASTY [...] This was initially converted to a 6 Guatemalan sheath and later converted to a 7 Guatemalan sheath. Reflux fistulogram for done in several [...] levels with a 6 x 40 mm [place] balloon. This gave minimal improvement. We then exchanged the 6 mm balloon for an 8 x 40 mm [place] balloon. This gave more moderate improvement. At that point we changed the 6 Guatemalan sheath to a 7 Guatemalan sheath and placed a 9 x 40 [...] site of puncture trauma. With the 7 Guatemalan sheath removed pressure was held on the [...] dilation of stenotic lesion as noted above. [facility] Transcribe Date/Time: Nov 22 2020 2:07P Dictated by : VINCENT DE LA ROSA MD This examination was interpreted and the report reviewed and electronically signed by: VINCENT DE LA ROSA MD on Nov 22 2020 2:13PM EST Normal [facility] XA SPECIAL ANGIOGRAPHY PROCE TD 10-17-2020 Patient Name: GLENN SNYDER Special Procedures ACCESSION EXAM DATE/TIME PROCEDURE ORDERING PROVIDER [id number] 10/17/2020 08:27 EST XA Special Angiography MD [...] KEVIN Transcribed Date and Time: 10/17/2020 1:05 [facility], [place] Apple Mckeon Incoming Radiology Results From [facility] - 10/17/2020 1:05 PM EST Patient Name: GLENN SNYDER Special Procedures ACCESSION EXAM DATE/TIME PROCEDURE ORDERING PROVIDER [id number] 10/17/2020 08:27 EST XA Special Angiography MD [...] KEVIN Transcribed Date and Time: 10/17/2020 1:05 [place], [place] XA Special Angiography Proce wilder 10-17-2020 XA Special Angiography Procedure Patient Name: [id number] Special Procedures ACCESSION EXAM DATE/TIME PROCEDURE ORDERING PROVIDER [id number] 10/17/2020 08:27 EST XA Special Angiography MD [facility] Procedure BISI Reason For Exam (XA Special [...] Transcribed Date and Time: 10/17/2020 1:05 Normal [facility] Basic Metabolic Panelon 04-27 Anion gap [Moles/Vol] 17 mmol/L Normal 9-18 [facility] Comment on above: Performed By: #### B MP #### [facility] 1 [place] [address] Calcium [Mass/Vol] 9.1 mg/dL Normal 8.5-10.2 [facility] Comment on above: Performed By: #### B MP #### [facility] 1 [place], [place] [address] Chloride [Moles/Vol] 100 mmol/L Normal 97-105 [facility] Comment on above: Performed By: #### B MP #### [facility] 1 [place], [place] [address] CO2 Blood 18 mmol/L Low 22-30 [facility] Comment on above: Performed By: #### B MP #### [facility] 1 [place], [place] [address] Creatinine [Mass/Vol] 13.39 mg/dL High 0.73-1.22 [facility] Comment on above: Performed By: #### B MP #### [facility] 1 [place], [place] [address] Glucose [Mass/Vol] 83 mg/dL Normal 74-99 [facility] Comment on above: Result Comment: The [place] Diabetes Association (ADA) provides guidance for cutoff [...] Standards of Medical Care in Diabetes 2016; [place] Diabetes Association. Diabetes Care. 2016;39(Suppl 1). Performed By: #### B MP #### [facility] 1 [place], [place] [address] Potassium [Moles/Vol] 4.8 mmol/L Normal 3.7-5.1 [facility] Comment on above: Performed By: #### B MP #### [facility] 1 [place], [place] [address] Sodium [Moles/Vol] 135 mmol/L Low 136-144 [facility] Comment on above: Performed By: #### B MP #### [facility] 1 [place], [place] [address] Urea nitrogen [Mass/Vol] 61 mg/dL High 9-24 [facility] Comment on above: Performed By: #### B MP #### [facility] [address] [place], [place] [address] Hemogramon 05-10-2020 Erythrocyte distribution width (RBC) [Ratio] 12.7 % Normal 11.6-14.4 [facility] Comment on above: Performed By: #### C BC1 #### [facility] [address] [place] [address] Hematocrit (Bld) [Volume fraction] 28.4 % Low 40.1-51.0 [facility] Comment on above: Performed By: #### C BC1 #### [facility] [address] [place] [address] Hemoglobin (Bld) [Mass/Vol] 9.2 g/dL Low 13.7-17.5 [facility] Comment on above: Performed By: #### C BC1 #### [facility] [address] [place] [address] MCH (RBC) [Entitic mass] 30.6 pg Normal 25.7-32.2 [facility] Comment on above: Performed By: #### C BC1 #### [facility] [address] [place] [address] MCHC (RBC) [Mass/Vol] 32.4 % Normal 32.3-36.5 [facility] Comment on above: Performed By: #### C BC1 #### [facility] [address] [place] [address] MCV (RBC) [Entitic vol] 94.4 fL Normal 83.2-95.6 [facility] Comment on above: Performed By: #### C BC1 #### [facility] [address] [place] [address] Platelet mean volume (Bld) [Entitic vol] 10.1 fL Normal 8.7-12.0 [facility] Comment on above: Performed By: #### C BC1 #### [facility] [address] [place] [address] Platelets (Bld) [#/Vol] 278 thou/cmm Normal 141-365 [facility] Comment on above: Performed By: #### C BC1 #### [facility] [address] [place] [address] RBC (Bld) [#/Vol] 3.01 mil/cmm Low 4.63-6.08 [facility] Comment on above: Performed By: #### C BC1 #### [facility] 1 [place], [place] [address] RDW SD 43.8 fl Normal 36.1-45.8 [facility] Comment on above: Performed By: #### C BC1 #### [facility] 1 [place], [place] [address] WBC (Bld) [#/Vol] 8.58 thou/cmm Normal 4.23-9.07 [facility] Comment on above: Performed By: #### C BC1 #### [facility] 1 [place] [id number] MDRD GFRon 05-10-2020 GFR/1.73 sq M predicted among non-blacks MDRD (S/P/Bld) [Vol rate/Area] 3.89 mL/min/{1.73_m2} Normal >60mL/min/1.7 3m2 [facility] Comment on above: Result Comment: If t he patient is , multiply the result by 1.210. Performed By: #### G FR #### [facility] 1 [place] [id number] Protimeon 05-10-2020 INR Coag (PPP) [Relative time] 0.98 {INR} Normal 0.90-1.30 [facility] Comment on above: Result Comment: Conchita min K Antagonist (VKA) Therapeutic Range: INR 2 to 3 (Target INR of 2.5) Note: For patients treated with VKA drugs, such as warfarin, the [place] College of Chest [employer]icians 2012 Guideline recommends [...] Performed By: #### P T #### [facility] 1 [place], [place] [address] PT Coag (PPP) [Time] 10.6 s Normal 9.7-13.0 [facility] Comment on above: Performed By: #### P T #### [address] [address] Rapid, COVID 19on 03-20-2020 Rapid, COVID 19 Negative Normal Negative [facility] Comment on above: Result Comment: This test has been authorized by the FDA under an Emergency Use Authorization (EUA). Performed By: #### R COVD #### [place] [address] Basic Metabolic Panelon 02-25 Anion gap [Moles/Vol] 14 mmol/L Normal 9-18 [facility] Comment on above: Performed By: #### B MP #### [place] [address] Calcium [Mass/Vol] 10.0 mg/dL Normal 8.5-10.2 [facility] Comment on above: Performed By: #### B MP #### [place] [address] Chloride [Moles/Vol] 95 mmol/L Low 97-105 [facility] Comment on above: Performed By: #### B MP #### [address] [address] CO2 Blood 26 mmol/L Normal 22-30 [facility] Comment on above: Performed By: #### B MP #### [place] [address] Creatinine [Mass/Vol] 9.29 mg/dL High 0.73-1.22 [facility] Comment on above: Performed By: #### B MP #### [place] [address] Glucose [Mass/Vol] 84 mg/dL Normal 74-99 [facility] Comment on above: Result Comment: The [place] Diabetes Association (ADA) provides guidance for cutoff [...] Standards of Medical Care in Diabetes 2016; [place] Diabetes Association. Diabetes Care. 2016;39(Suppl 1). Performed By: #### B MP #### [facility] 1 [place], [place] [address] Potassium [Moles/Vol] 3.7 mmol/L Normal 3.7-5.1 [facility] Comment on above: Performed By: #### B MP #### [facility] 1 [place], [place] [address] Sodium [Moles/Vol] 135 mmol/L Low 136-144 [facility] Comment on above: Performed By: #### B MP #### [facility] 1 [place], [place] [address] Urea nitrogen [Mass/Vol] 32 mg/dL High 9-24 [facility] Comment on above: Performed By: #### B MP #### [address] [address] Hematologyon 03-13-2020 INR Coag (PPP) [Relative time] 0.96 {INR} 0.90 - 1.30 [facility] PT Coag (PPP) [Time] 10.4 s 9.7 - 1 3.0 sec [facility] Hematocrit (Bld) [Volume fraction] 30.6 % Low 40.1 - 51.0 % [facility] Hemoglobin (Bld) [Mass/Vol] 10.8 g/dL Low 13.7 - 17.5 g/dL [facility] MCH (RBC) [Entitic mass] 31.0 pg 25. 7 - 32.2 pg [facility] MCV (RBC) [Entitic vol] 87.9 fL 83.2 - 95.6 fl [facility] Platelets (Bld) [#/Vol] 269 thou/cmm 141 - 365 thou/cmm [facility] RBC (Bld) [#/Vol] 3.48 mil/cmm Low 4.63 - 6.0 8 mil/cmm [facility] WBC (Bld) [#/Vol] 10.79 thou/cmm High 4.23 - 9 .07 thou/cmm [facility] Hemogramon 03-13-2020 Erythrocyte distribution width (RBC) [Ratio] 13.2 % Normal 11.6-14.4 [facility] Comment on above: Performed By: #### C BC1 #### [facility] [address] [place] [address] Hematocrit (Bld) [Volume fraction] 30.6 % Low 40.1-51.0 [facility] Comment on above: Performed By: #### C BC1 #### [facility] [address] [place] [address] Hemoglobin (Bld) [Mass/Vol] 10.8 g/dL Low 13.7-17.5 [facility] Comment on above: Performed By: #### C BC1 #### [facility] [address] [place] [address] MCH (RBC) [Entitic mass] 31.0 pg Normal 25.7-32.2 [facility] Comment on above: Performed By: #### C BC1 #### [facility] 1 [place], [place] [address] MCHC (RBC) [Mass/Vol] 35.3 % Normal 32.3-36.5 [facility] Comment on above: Performed By: #### C BC1 #### [facility] 1 [place], [place] [address] MCV (RBC) [Entitic vol] 87.9 fL Normal 83.2-95.6 [facility] Comment on above: Performed By: #### C BC1 #### [facility] [address] [place] [address] Platelet mean volume (Bld) [Entitic vol] 10.1 fL Normal 8.7-12.0 [facility] Comment on above: Performed By: #### C BC1 #### [facility] 1 [place] [id number] Platelets (Bld) [#/Vol] 269 thou/cmm Normal 141-365 [facility] Comment on above: Performed By: #### C BC1 #### [facility] [address] [place] [address] RBC (Bld) [#/Vol] 3.48 mil/cmm Low 4.63-6.08 [facility] Comment on above: Performed By: #### C BC1 #### [facility] [address] [place] [address] RDW SD 42.3 fl Normal 36.1-45.8 [facility] Comment on above: Performed By: #### C BC1 #### [facility] 1 [place] [id number] WBC (Bld) [#/Vol] 10.79 thou/cmm High 4.23-9.07 [facility] Comment on above: Performed By: #### C BC1 #### [facility] [address] [place] [address] MDRD GFRon 03-13-2020 GFR/1.73 sq M predicted among non-blacks MDRD (S/P/Bld) [Vol rate/Area] 5.94 mL/min/{1.73_m2} Normal >60mL/min/1.7 3m2 [facility] Comment on above: Result Comment: If t he patient is , multiply the result by 1.210. Performed By: #### G FR #### [facility] [address] [place] [address] Metabolic Panelon 03-13-2020 Anion gap [Moles/Vol] 14 mmol/L 9 - 18 mmol/L [facility] Calcium [Mass/Vol] 10.0 mg/dL 8.5 - 10. 2 mg/dL [facility] Chloride [Moles/Vol] 95 mmol/L Low 97 - 10 5 mmol/L [facility] CO2 [Moles/Vol] 26 mmol/L 22 - 30 mmol/L [facility] Creatinine [Mass/Vol] 9.29 mg/dL High 0.73 - 1.22 mg/dL [facility] Glucose [Mass/Vol] 84 mg/dL 74 - 99 mg/dL [facility] Potassium [Moles/Vol] 3.7 mmol/L 3.7 - 5.1 mmol/L [facility] Sodium [Moles/Vol] 135 mmol/L Low 136 - 144 mmol/L [facility] Urea nitrogen [Mass/Vol] 32 mg/dL High 9 - 24 mg/d L [facility] Otheron 03-13-2020 GFR/1.73 sq M.predicted MDRD (S/P/Bld) [Vol rate/Area] 5.94 mL/min/{1.73_m2} >60mL/min/1.7 3m2 [facility] Erythrocyte distribution width (RBC) [Entitic vol] 42.3 fL 36.1 - 45.8 fl [facility] Erythrocyte distribution width (RBC) [Ratio] 13.2 % 11.6 - 14.4 % [facility] MCHC (RBC) [Mass/Vol] 35.3 % 32.3 - 36.5 % [facility] Platelet mean volume (Bld) [Entitic vol] 10.1 fL 8.7 - 12.0 fl [facility] Protimeon 03-13-2020 INR Coag (PPP) [Relative time] 0.96 {INR} Normal 0.90-1.30 [facility] Comment on above: Result Comment: Con[place] min K Antagonist (VKA) Therapeutic Range: INR 2 to 3 (Target INR of 2.5) Note: For patients treated with VKA drugs, such as warfarin, the [place] College of Chest [employer]icians 2012 Guideline recommends [...] Chest 2012; 141:7S-47S Randall RA, et al. [facility] 2017; 70: 252-289 Performed By: #### P T #### [facility] 1 [place], [place] [address] PT Coag (PPP) [Time] 10.4 s Normal 9.7-13.0 [facility] Comment on above: Performed By: #### P T #### [facility] 1 [place], [place] [address] US VEIN MAPPING UPPER BILon 02-13-2020 US VEIN MAPPING UPPER HO * * *Final Report* * * DATE OF EXAM: Feb 13 2020 2:22PM [facility] 1085 - US VEIN MAPPING UPPER HO [...] unobstructed. There is no deep venous thrombosis. Family Reunification Specialist: [facility] Transcribe Date/Time: Feb 13 2020 4:27P Dictated by : ANALISA GRANADOS MD This examination was interpreted and the report reviewed and electronically signed by: ANALISA GRANADOS MD on Feb 13 2020 4:30PM EST Normal [facility] Basic Metabolic PanelOrdered By: Darell Sanches on 10-27-2019 Anion gap [Moles/Vol] 18 mmol/L [facility] Work Phone: Calcium [Mass/Vol] 9.2 [...] [facility] Work Phone: EGFR IF NonAfrican [place] 5.5 mL/min >60 [facility] Work Phone: Comment on above: Source- MDRD equatio n with creatinine calibration to IDMS(NKDEP) eGFR not recommended for drug dose adjustment GFR/1.73 sq M.predicted among blacks MDRD (S/P/Bld) [Vol rate/Area] 6.6 mL/min/{1.73_m2} >60 [facility] Work Phone: Glucose [Mass/Vol] 103 mg/dL High 70 - 100 mg/dL [facility] Work Phone: [phone] Potassium [Moles/Vol] 4.5 mmol/L 3.5 - 5.1 mmol/L [facility] Work Phone: [phone] Sodium [Moles/Vol] 135 mmol/L 135 - 145 mmol/L [facility] Work Phone: [phone] Urea nitrogen [Mass/Vol] 49 mg/dL High 7 - 20 mg/d L [facility] Work Phone: [phone] CBC Auto DifferentialOrdered By: Darell Sanches on 10-27-2019 Absolute Baso # 0.1 10*3/uL 0 - 0.2 10*3/uL [facility] Work Phone: [phone] Absolute Neut # 6.6 10*3/uL 1.8 - 7 10*3/uL [facility] Work Phone: [phone] Basophils/100 WBC (Bld) 0.7 % 0 - 2 % [facility] Work Phone: Eosinophils (Bld) [#/Vol] 0.5 10*3/uL 0 - 0.5 10*3/uL [facility] Work Phone: [phone] Eosinophils/100 WBC (Bld) 4.9 % 1 - 6 % [facility] Work Phone: 1 Erythrocyte distribution width (RBC) [Ratio] 14.0 % 11.5 - 14.5 % [facility] Work Phone: Granulocytes/100 WBC (Bld) 62.2 % 40 - 80 % [facility] Work Phone: Hematocrit (Bld) [Volume fraction] 28.3 % Low 40 - 52 % [facility] Work Phone: Hemoglobin (Bld) [Mass/Vol] 9.5 g/dL Low 13 - 18 g/dL [facility] Work Phone: [phone] Lymphocytes (Bld) [#/Vol] 2.0 10*3/uL 1 - 4.3 10*3/uL [facility] Work Phone: [phone] Lymphocytes/100 WBC (Bld) 18.8 % Low 20 - 40 % [facility] Work Phone: [phone] MCH (RBC) [Entitic mass] 29.1 pg 26 - 34 pg [facility] Work Phone: MCHC 33.6 % 32 - 36 % [facility] Work Phone: MCV (RBC) [Entitic vol] 86.7 fL 80 - 98 fL S [facility] Work Phone: Monocytes (Bld) [#/Vol] 1.4 10*3/uL High 0 - 0.8 10*3/uL [facility] Work Phone: Monocytes/100 WBC (Bld) 13.4 % High 2 - 10 % [facility] Work Phone: Platelet mean volume (Bld) [Entitic vol] 8.2 fL 7.4 - 10.4 fL [facility] Work Phone: 1 Platelets (Bld) [#/Vol] 259 10*3/uL 140 - 440 10*3/uL [facility] Work Phone: RBC (Bld) [#/Vol] 3.27 10*6/uL Low 4.4 - 5.9 10*6/uL [facility] Work Phone: WBC (Bld) [#/Vol] 10.6 10*3/uL 3.6 - 10.7 10*3/uL [facility] Work Phone: [phone] MAGNESIUMOrdered By: Darell Sanches on 10-27-2019 Magnesium [Mass/Vol] 2.6 mg/dL High 1.6 - 2 .3 mg/dL [facility] Work Phone: [phone] Panel InformationOrdered By: Darell Sanches on 10-27-2019 Interpretation and review of laboratory results Abnormal [facility] Work Phone: [phone] Test Performed by [facility], [address] [place], [place] [address] Work Phone: [phone] PhosphorusOrdered By: Darell Sanches on 10-27-2019 Phosphate [Mass/Vol] 9.9 mg/dL High 2.5 - 4 .5 mg/dL [facility] Work Phone: [phone] Basic Metabolic PanelOrdered By: Darell Sanches on 10-26-2019 Anion gap [Moles/Vol] 14 mmol/L [facility] Work Phone: [phone] Calcium [Mass/Vol] 9.0 mg/dL 8.4 - 10. 4 mg/dL [facility] Work Phone: 1 Chloride [Moles/Vol] 94 mmol/L Low 98 - 10 7 mmol/L [facility] Work Phone: 1 CO2 [Moles/Vol] 29 mmol/L 22 - 30 mmol/L [facility] Work Phone: Creatinine [Mass/Vol] 7.06 mg/dL High 0.52 - 1.25 mg/dL [facility] Work Phone: 1 EGFR IF NonAfrican Palauan 8.2 mL/min >60 [facility] Work Phone: [phone] Comment on above: Source- MDRD equatio n [...] - 20 mg/d L [facility] Work Phone: [phone] CBC Auto DifferentialOrdered By: Darell Sanches on 10-26-2019 Absolute Baso # 0.1 10*3/uL 0 - 0.2 10*3/uL [facility] Work Phone: [phone] Absolute Neut # 7.1 10*3/uL High 1.8 - 7 10*3/uL [facility] Work Phone: [phone] Basophils/100 WBC (Bld) 0.8 % 0 - 2 % S [facility] Work Phone: [phone] Eosinophils (Bld) [#/Vol] 0.5 10*3/uL 0 - 0.5 10*3/uL [facility] Work Phone: [phone] Eosinophils/100 WBC (Bld) 4.7 % 1 - 6 % [facility] Work Phone: 1 Erythrocyte distribution width (RBC) [Ratio] 13.9 % 11.5 - 14.5 % [facility] Work Phone: 1 22 Granulocytes/100 WBC (Bld) 63.9 % 40 - 80 % [facility] Work Phone: Hematocrit (Bld) [Volume fraction] 29.2 % Low 40 - 52 % [facility] Work Phone: Hemoglobin (Bld) [Mass/Vol] 9.9 g/dL Low 13 - 18 g/dL [facility] Work Phone: Interpretation and review of laboratory results Abnormal [facility] Work Phone: 1 22 Lymphocytes (Bld) [#/Vol] 2.0 10*3/uL 1 - 4.3 10*3/uL [facility] Work Phone: Lymphocytes/100 WBC (Bld) 17.8 % Low 20 - 40 % [facility] Work Phone: MCH (RBC) [Entitic mass] 29.5 pg 26 - 34 pg [facility] Work Phone: MCHC 33.9 % 32 - 36 % [facility] Work Phone: MCV (RBC) [Entitic vol] 87.0 fL 80 - 98 fL [facility] Work Phone: Monocytes (Bld) [#/Vol] 1.4 10*3/uL High 0 - 0.8 10*3/uL [facility] Work Phone: 1 22 Monocytes/100 WBC (Bld) 12.8 % High 2 - 10 % [facility] Work Phone: Platelet mean volume (Bld) [Entitic vol] 8.0 fL 7.4 - 10.4 fL [facility] Work Phone: 1 Platelets (Bld) [#/Vol] 262 10*3/uL 140 - 440 10*3/uL [facility] Work Phone: RBC (Bld) [#/Vol] 3.36 10*6/uL Low 4.4 - 5.9 10*6/uL [facility] Work Phone: WBC (Bld) [#/Vol] 11.0 10*3/uL High 3.6 - 10.7 10*3/uL [facility] Work Phone: 1 Test Performed by [email or web address], [address] [place] [address] [facility] Work Phone: Culture Blood #1Ordered By: Brett Encarnacion on 10-26-2019 Blood Culture, Routine [employer] testing is not routinely performed on Gram positive bacilli. If a Listeria infection is highly suspected, contact the Microbiology laboratory [phone] Abnormal [facility] Work Phone: 1 Blood Culture, Routine Propionibacterium acnes Abnormal [facility] Work Phone: 1 Blood Culture, Routine Isolated: Contamination likely unless additional blood culture sets are found to be positive with the same organism. [facility] Work Phone: Interpretation and review of laboratory results Abnormal [facility] Work Phone: 1 Test Performed by [email or web address], [address] [place] [id number] Specimen Source Comment:Blood [facility] Work Phone: MAGNESIUMOrdered By: Darell Sanches on 10-26-2019 Magnesium [Mass/Vol] 2.2 mg/dL 1.6 - 2 .3 mg/dL [facility] Work Phone: [phone] No Panel InformationOrdered By: Darell Sanches on 10-26-2019 Interpretation and review of laboratory results Abnormal [facility] Work Phone: Test Performed by [email or web address], [address] [place], [place] [id number] [place], [place] [address]A Work Phone: PhosphorusOrdered By: Darell Sanches on 10-26-2019 Phosphate [Mass/Vol] 7.1 mg/dL High 2.5 - 4 .5 mg/dL [facility] Work Phone: US BIOPSY RENAL RIGHT PERCOr dered By: Cindy Patel on 10-26-2019 Patient Name: GLENN SNYDER ---Ultrasound--- Exam Date/Time 10/26/2019 10:57:27 EST Exam US Biopsy Renal Right Ordering Physician MD DA, CINDY MATHEWS Accession Number [id number] CPT4 Codes 11036 (), 25630 () Reason For Exam renal failure Report ULTRASOUND GUIDED RIGHT LOWER POLE KIDNEY BIOPSY Reasons for examination: Acute renal failure. After review of prior studies, patient interview and examination, the risks, benefits, and alternatives of the biopsy procedure were discussed, informed consent was obtained. Lining Cutter US scans of the right kidney were [...] Time: 10/26/2019 12:05 [facility] Work Phone: [facility] - 10/26/2019 12:05 PM EST Patient Name: GLENN SNYDER ---Ultrasound--- Exam Date/Time 10/26/2019 10:57:27 EST Exam US Biopsy Renal Right Ordering Physician MD DA, CINDY MATHEWS Accession Number [id number] CPT4 Codes 47397 (), 82854 () Reason For Exam renal failure Report ULTRASOUND GUIDED RIGHT LOWER POLE KIDNEY BIOPSY Reasons for examination: Acute renal failure. After review of prior studies, patient interview and examination, the risks, benefits, and alternatives of the biopsy procedure were discussed, informed consent was obtained. Lining Cutter US scans of the right kidney were [...] Ordering Physician MD KEILA, JEANA Accession Number [id number] Reason For Exam non tunneled to tunneled cath Report FLUOROSCOPIC AND ULTRASOUND-GUIDED TUNNELED DIALYSIS CATHETER PLACEMENT REMOVAL OF RIGHT INTERNAL JUGULAR TEMPORARY HEMODIALYSIS CATHETER CLINICAL HISTORY: Need for edge roller central venous access Fluoroscopy time: Acute renal [...] Phone: Mike, [facility] Incoming Radiology Results From [facility] - 10/26/2019 3:29 PM EST Patient Name: GLENN SNYDER ---Special Procedures--- Exam Date/Time 10/26/2019 15:01:32 EST Exam XA Special Angiography Procedure Ordering Physician MD KEILA, AZIZ Accession Number [id number] Reason For Exam non tunneled to tunneled cath Report FLUOROSCOPIC AND ULTRASOUND-GUIDED TUNNELED DIALYSIS CATHETER PLACEMENT REMOVAL OF RIGHT INTERNAL JUGULAR TEMPORARY HEMODIALYSIS CATHETER CLINICAL HISTORY: Need for edge roller central venous access Fluoroscopy time: Acute renal [...] 10/26/2019 3:28 [facility] Work Phone: Basic Metabolic PanelOrdered By: Darell Sanches on 10-25-2019 Anion gap [Moles/Vol] 15 mmol/L [facility] Work Phone: Calcium [Mass/Vol] 8.7 mg/dL 8.4 - 10. 4 mg/dL [facility] Work Phone: Chloride [Moles/Vol] 95 mmol/L Low 98 - 10 7 mmol/L [facility] Work Phone: [phone] CO2 [Moles/Vol] 26 mmol/L 22 - 30 mmol/L [facility] Work Phone: [phone] Creatinine [Mass/Vol] 9.71 mg/dL High 0.52 - 1.25 mg/dL [facility] Work Phone: [phone] EGFR IF NonAfrican Palauan 5.7 mL/min >60 [facility] Work Phone: Comment on above: Source- MDRD equatio n with creatinine calibration to IDMS(NKDEP) eGFR not recommended for drug dose adjustment GFR/1.73 sq M.predicted among blacks MDRD (S/P/Bld) [Vol rate/Area] 6.9 mL/min/{1.73_m2} >60 [facility] Work Phone: 1 Glucose [Mass/Vol] 96 mg/dL 70 - 100 mg/dL [facility] Work Phone: Potassium [Moles/Vol] 4.3 mmol/L 3.5 - 5.1 mmol/L [facility] Work Phone: Sodium [Moles/Vol] 135 mmol/L 135 - 145 mmol/L [facility] Work Phone: [phone] Urea nitrogen [Mass/Vol] 39 mg/dL High 7 - 20 mg/d L [facility] Work Phone: [phone] CBC Auto DifferentialOrdered By: Darell Sanches on 10-25-2019 Absolute Baso # 0.1 10*3/uL 0 - 0.2 10*3/uL [facility] Work Phone: [phone] Absolute Neut # 6.7 10*3/uL 1.8 - 7 10*3/uL [facility] Work Phone: [phone] Basophils/100 WBC (Bld) 0.9 % 0 - 2 % S [facility] Work Phone: Eosinophils (Bld) [#/Vol] 0.5 10*3/uL 0 - 0.5 10*3/uL [facility] Work Phone: [phone] Eosinophils/100 WBC (Bld) 4.5 % 1 - 6 % [facility] Work Phone: [phone] Erythrocyte distribution width (RBC) [Ratio] 13.8 % 11.5 - 14.5 % [facility] Work Phone: Granulocytes/100 WBC (Bld) 60.1 % 40 - 80 % [facility] Work Phone: 1 Hematocrit (Bld) [Volume fraction] 28.3 % Low 40 - 52 % [facility] Work Phone: 1 Hemoglobin (Bld) [Mass/Vol] 9.7 g/dL Low 13 - 18 g/dL [facility] Work Phone: Interpretation and review of laboratory results Abnormal [facility] Work Phone: 1 Lymphocytes (Bld) [#/Vol] 2.6 10*3/uL 1 - 4.3 10*3/uL [facility] Work Phone: 1 Lymphocytes/100 WBC (Bld) 22.9 % 20 - 40 % [facility] Work Phone: 1 MCH (RBC) [Entitic mass] 30.0 pg 26 - 34 pg [facility] Work Phone: MCHC 34.3 % 32 - 36 % [facility] Work Phone: 1 MCV (RBC) [Entitic vol] 87.3 fL 80 - 98 fL S [facility] Work Phone: Monocytes (Bld) [#/Vol] 1.3 10*3/uL High 0 - 0.8 10*3/uL [facility] Work Phone: 1) Monocytes/100 WBC (Bld) 11.6 % High 2 - 10 % [facility] Work Phone: Platelet mean volume (Bld) [Entitic vol] 8.1 fL 7.4 - 10.4 fL [facility] Work Phone: Platelets (Bld) [#/Vol] 252 10*3/uL 140 - 440 10*3/uL [facility] Work Phone: 1 RBC (Bld) [#/Vol] 3.24 10*6/uL Low 4.4 - 5.9 10*6/uL [facility] Work Phone: 1 WBC (Bld) [#/Vol] 11.2 10*3/uL High 3.6 - 10.7 10*3/uL [facility] Work Phone: 1 Test Performed by [email or web address], [address] [place] [address] [facility] Work Phone: 1 MAGNESIUMOrdered By: Darell Sanches on 10-25-2019 Magnesium [Mass/Vol] 2.2 mg/dL 1.6 - 2 .3 mg/dL [facility] Work Phone: No Panel InformationOrdered By: Darell Sanches on 10-25-2019 Interpretation and review of laboratory results Abnormal [facility] Work Phone: Test Performed by [facility], [address] [place] [address] Str[address] [place], [place] [address] [facility] Work Phone: PhosphorusOrdered By: Darell Sanches on 10-25-2019 Phosphate [Mass/Vol] 9.3 mg/dL High 2.5 - 4 .5 mg/dL [facility] Work Phone: 1 APTTOrdered By: Cindy Patel on 10-24-2019 aPTT Coag (Bld) [Time] 28.5 s 20 - 30.5 s S [facility] Work Phone: Comment on above: NOTE: [...] [facility] Work Phone: EGFR IF NonAfrican Palauan 8.1 mL/min >60 [facility] Work Phone: Comment on above: Source- MDRD equatio n with creatinine calibration to IDMS(NKDEP) eGFR not recommended for drug dose adjustment GFR/1.73 sq M.predicted among blacks MDRD (S/P/Bld) [Vol rate/Area] 9.8 mL/min/{1.73_m2} >60 [facility] Work Phone: [phone] Glucose [Mass/Vol] 93 mg/dL 70 - 100 mg/dL [facility] Work Phone: [phone] Potassium [Moles/Vol] 4.1 mmol/L 3.5 - 5.1 mmol/L [facility] Work Phone: [phone] Sodium [Moles/Vol] 135 mmol/L 135 - 145 mmol/L [facility] Work Phone: [phone] Urea nitrogen [Mass/Vol] 28 mg/dL High 7 - 20 mg/d L [facility] Work Phone: [phone] Auto DifferentialOrdered By: Darell Sanches on 10-24-2019 Absolute Baso # 0.1 10*3/uL 0 - 0.2 10*3/uL [facility] Work Phone: [phone] Absolute Neut # 6.2 10*3/uL 1.8 - 7 10*3/uL [facility] Work Phone: [phone] Basophils/100 WBC (Bld) 0.7 % 0 - 2 % [facility] Work Phone: [phone] Eosinophils (Bld) [#/Vol] 0.4 10*3/uL 0 - 0.5 10*3/uL [facility] Work Phone: [phone] Eosinophils/100 WBC (Bld) 3.7 % 1 - 6 % [facility] Work Phone: [phone] Erythrocyte distribution width (RBC) [Ratio] 14.0 % 11.5 - 14.5 % [facility] Work Phone: [phone] Granulocytes/100 WBC (Bld) 63.8 % 40 - 80 % [facility] Work Phone: [phone] Hematocrit (Bld) [Volume fraction] 27.0 % Low 40 - 52 % [facility] Work Phone: [phone] Hemoglobin (Bld) [Mass/Vol] 9.2 g/dL Low 13 - 18 g/dL [facility] Work Phone: [phone] Interpretation and review of laboratory results Abnormal [facility] Work Phone: 1 Lymphocytes (Bld) [#/Vol] 1.8 10*3/uL 1 - 4.3 10*3/uL [facility] Work Phone: 1 Lymphocytes/100 WBC (Bld) 18.8 % Low 20 - 40 % [facility] Work Phone: 1 MCH (RBC) [Entitic mass] 29.6 pg 26 - 34 pg [facility] Work Phone: 1 MCHC 34.1 % 32 - 36 % [facility] Work Phone: 1 MCV (RBC) [Entitic vol] 86.9 fL 80 - 98 fL S [facility] Work Phone: Monocytes (Bld) [#/Vol] 1.3 10*3/uL High 0 - 0.8 10*3/uL [facility] Work Phone: 1 Monocytes/100 WBC (Bld) 13.0 % High 2 - 10 % S [employer] Work Phone: 1 Platelet mean volume (Bld) [Entitic vol] 8.4 fL 7.4 - 10.4 fL [facility] Work Phone: Platelets (Bld) [#/Vol] 245 10*3/uL 140 - 440 10*3/uL [facility] Work Phone: 1 RBC (Bld) [#/Vol] 3.10 10*6/uL Low 4.4 - 5.9 10*6/uL [facility] Work Phone: WBC (Bld) [#/Vol] 9.7 10*3/uL 3.6 - 10.7 10*3/uL [facility] Work Phone: Culture Blood #1Ordered By: Brett Encarnacion on 10-24-2019 Blood Culture, Routine No growth at 5 days. [facility] Work Phone: Test Performed by [email or web address], [address] [place] [address] Specimen Source Comment:Blood [facility] Work Phone: 1 Glomerular Basement Membrane (GBM) Antibody IgGOrdered By: Randolph Liz on 10-24-2019 GBM Ab, IgG (IFA) Negative Negative NA [facility] Work Phone: 1 Comment on above: INTERPRETIVE [...] biopsy. Test developed and characteristics determined by [facility]. See Compliance Statement D: [employer] Performed by [facility], [address] [facility] [place] [address] www.[email or web address], Malvin Slade MD, Lab. Director MAGNESIUMOrdered By: Darell Sanches on 10-24-2019 Magnesium [Mass/Vol] 2.1 mg/dL 1.6 - 2 .3 mg/dL [facility] Work Phone: No Panel InformationOrdered By: Darell Sanches on 10-24-2019 Interpretation and review of laboratory results Abnormal [facility] Work Phone: 1 Test Performed by [facility], [facility] [address] [place], [place] [address] [facility] Work Phone: Test Performed by [facility], [address] [place], [place] [address] [facility] Work Phone: PhosphorusOrdered By: Darell Sanches on 10-24-2019 Phosphate [Mass/Vol] 5.8 mg/dL High 2.5 - 4 .5 mg/dL [facility] Work Phone: 1 Protime-INROrdered By: Darren Patel on 10-24-2019 INR Coag (PPP) [Relative time] 1.1 {INR} [facility] Work Phone: [phone] Comment on above: Recommended Anticoag ulant Therapy: [...] - 12 s [facility] Work Phone: [phone] Comment on above: . Basic Metabolic PanelOrdered By: Darell Sanches on 10-23-2019 Anion gap [Moles/Vol] 17 mmol/L [facility] Work Phone: [phone] Calcium [Mass/Vol] 8.6 mg/dL 8.4 - 10. 4 mg/dL [facility] Work Phone: [phone] Chloride [Moles/Vol] 94 mmol/L Low 98 - 10 7 mmol/L [facility] Work Phone: [phone] CO2 [Moles/Vol] 24 mmol/L 22 - 30 mmol/L [facility] Work Phone: [phone] Creatinine [Mass/Vol] 11.03 mg/dL High 0.52 - 1.25 mg/dL [facility] Work Phone: [phone] EGFR IF NonAfrican Palauan 4.9 mL/min >60 [facility] Work Phone: [phone] Comment on above: Source- MDRD equatio n with creatinine calibration to IDMS(NKDEP) eGFR not recommended for drug dose adjustment GFR/1.73 sq M.predicted among blacks MDRD (S/P/Bld) [Vol rate/Area] 5.9 mL/min/{1.73_m2} >60 [facility] Work Phone: [phone] Glucose [Mass/Vol] 97 mg/dL 70 - 100 mg/dL [facility] Work Phone: [phone] Potassium [Moles/Vol] 3.9 mmol/L 3.5 - 5.1 mmol/L [facility] Work Phone: [phone] Sodium [Moles/Vol] 135 mmol/L 135 - 145 mmol/L [facility] Work Phone: [phone] Urea nitrogen [Mass/Vol] 61 mg/dL High 7 - 20 mg/d L [facility] Work Phone: [phone] CBC Auto DifferentialOrdered By: Darell Sanches on 10-23-2019 Absolute Baso # 0.1 10*3/uL 0 - 0.2 10*3/uL [facility] Work Phone: [phone] Absolute Neut # 7.1 10*3/uL High 1.8 - 7 10*3/uL [facility] Work Phone: [phone] Basophils/100 WBC (Bld) 1.0 % 0 - 2 % [facility] [employer] Work Phone: [phone] Eosinophils (Bld) [#/Vol] 0.5 10*3/uL 0 - 0.5 10*3/uL [facility] Work Phone: [phone] Eosinophils/100 WBC (Bld) 4.7 % 1 - 6 % [facility] Work Phone: 1 Erythrocyte distribution width (RBC) [Ratio] 13.8 % 11.5 - 14.5 % [facility] Work Phone: 1 Granulocytes/100 WBC (Bld) 65.3 % 40 - 80 % [facility] Work Phone: Hematocrit (Bld) [Volume fraction] 27.6 % Low 40 - 52 % [facility] Work Phone: Hemoglobin (Bld) [Mass/Vol] 9.5 g/dL Low 13 - 18 g/dL [facility] Work Phone: 1 Interpretation and review of laboratory results Abnormal [facility] Work Phone: 1 Lymphocytes (Bld) [#/Vol] 1.9 10*3/uL 1 - 4.3 10*3/uL [facility] Work Phone: [phone] Lymphocytes/100 WBC (Bld) 17.3 % Low 20 - 40 % [facility] Work Phone: MCH (RBC) [Entitic mass] 29.7 pg 26 - 34 pg [facility] Work Phone: 22 MCHC 34.3 % 32 - 36 % [facility] Work Phone: 1 MCV (RBC) [Entitic vol] 86.6 fL 80 - 98 fL S [facility] Work Phone: Monocytes (Bld) [#/Vol] 1.3 10*3/uL High 0 - 0.8 10*3/uL [facility] Work Phone: 1 Monocytes/100 WBC (Bld) 11.7 % High 2 - 10 % S [facility] Work Phone: 1 Platelet mean volume (Bld) [Entitic vol] 7.7 fL 7.4 - 10.4 fL [facility] Work Phone: 1 Platelets (Bld) [#/Vol] 248 10*3/uL 140 - 440 10*3/uL [facility] Work Phone: RBC (Bld) [#/Vol] 3.18 10*6/uL Low 4.4 - 5.9 10*6/uL [facility] Work Phone: 1 WBC (Bld) [#/Vol] 10.8 10*3/uL High 3.6 - 10.7 10*3/uL [facility] Work Phone: 1 Test Performed by [email or web address], [address] [place] [address] Work Phone: MAGNESIUMOrdered By: Darell Sanches on 10-23-2019 Magnesium [Mass/Vol] 2.1 mg/dL 1.6 - 2 .3 mg/dL [facility] Work Phone: No Panel InformationOrdered By: Darell Sanches on 10-23-2019 Interpretation and review of laboratory results Abnormal [facility] Work Phone: Test Performed by [email or web address] Work Phone: PhosphorusOrdered By: Darell Sanches on 10-23-2019 Phosphate [Mass/Vol] 9.5 mg/dL High 2.5 - 4 .5 mg/dL [facility] Work Phone: Basic Metabolic PanelOrdered By: Delon Jessica on 10-22-2019 Anion gap [Moles/Vol] 14 mmol/L [facility] Work Phone: Calcium [Mass/Vol] 8.9 mg/dL 8.4 - 10. 4 mg/dL [facility] Work Phone: [phone] Chloride [Moles/Vol] 95 mmol/L Low 98 - 10 7 mmol/L [facility] Work Phone: [phone] CO2 [Moles/Vol] 28 mmol/L 22 - 30 mmol/L [facility] Work Phone: [phone] Creatinine [Mass/Vol] 8.75 mg/dL High 0.52 - 1.25 mg/dL [facility] Work Phone: [phone] EGFR IF NonAfrican Palauan 6.4 mL/min >60 [facility] Work Phone: [phone] Comment on above: Source- MDRD equatio n with creatinine calibration to IDMS(NKDEP) eGFR not recommended for drug dose adjustment GFR/1.73 sq M.predicted among blacks MDRD (S/P/Bld) [Vol rate/Area] 7.7 mL/min/{1.73_m2} >60 [facility] Work Phone: [phone] Glucose [Mass/Vol] 94 mg/dL 70 - 100 mg/dL [facility] Work Phone: [phone] Potassium [Moles/Vol] 4.3 mmol/L 3.5 - 5.1 mmol/L [facility] Work Phone: [phone] Sodium [Moles/Vol] 137 mmol/L 135 - 145 mmol/L [facility] Work Phone: [phone] Urea nitrogen [Mass/Vol] 53 mg/dL High 7 - 20 mg/d L [facility] Work Phone: [phone] CBC Auto DifferentialOrdered By: Delon Jessica on 10-22-2019 Absolute Baso # 0.1 10*3/uL 0 - 0.2 10*3/uL [facility] Work Phone: [phone] Absolute Neut # 5.9 10*3/uL 1.8 - 7 10*3/uL [facility] Work Phone: [phone] Basophils/100 WBC (Bld) 0.9 % 0 - 2 % S [facility] Work Phone: [phone] Eosinophils (Bld) [#/Vol] 0.3 10*3/uL 0 - 0.5 10*3/uL [facility] Work Phone: [phone] Eosinophils/100 WBC (Bld) 3.0 % 1 - 6 % [facility] Work Phone: [phone] Erythrocyte distribution width (RBC) [Ratio] 14.2 % 11.5 - 14.5 % [facility] Work Phone: 1 Granulocytes/100 WBC (Bld) 63.0 % 40 - 80 % [facility] Work Phone: Hematocrit (Bld) [Volume fraction] 27.7 % Low 40 - 52 % [facility] Work Phone: 1 Hemoglobin (Bld) [Mass/Vol] 9.4 g/dL Low 13 - 18 g/dL [facility] Work Phone: [phone] Interpretation and review of laboratory results Abnormal [facility] Work Phone: 1 Lymphocytes (Bld) [#/Vol] 1.6 10*3/uL 1 - 4.3 10*3/uL [facility] Work Phone: Lymphocytes/100 WBC (Bld) 17.2 % Low 20 - 40 % [facility] Work Phone: 1 MCH (RBC) [Entitic mass] 29.3 pg 26 - 34 pg [facility] Work Phone: MCHC 33.8 % 32 - 36 % [facility] Work Phone: MCV (RBC) [Entitic vol] 86.7 fL 80 - 98 fL [facility] Work Phone: Monocytes (Bld) [#/Vol] 1.5 10*3/uL High 0 - 0.8 10*3/uL [facility] Work Phone: 1 22 Monocytes/100 WBC (Bld) 15.9 % High 2 - 10 % [facility] Work Phone: Platelet mean volume (Bld) [Entitic vol] 8.0 fL 7.4 - 10.4 fL [facility] Work Phone: Platelets (Bld) [#/Vol] 264 10*3/uL 140 - 440 10*3/uL [facility] Work Phone: RBC (Bld) [#/Vol] 3.20 10*6/uL Low 4.4 - 5.9 10*6/uL [facility] Work Phone: 1 WBC (Bld) [#/Vol] 9.3 10*3/uL 3.6 - 10.7 10*3/uL [facility] Work Phone: 1 Test Performed by [email or web address], [facility] [address] [place] [address] [facility] Work Phone: Calcium, IonizedOrdered By: Delon Jessica on 10-22-2019 Interpretation and review of laboratory results Abnormal [facility] Work Phone: 1 Ionized Ca 4.20 mg/dL Low 4.3 - 5.2 mg/dL [facility] Work Phone: pH (Bld) 7.43 [pH] [facility] Work Phone: 1 Test Performed by [email or web address], [facility] [address] [place] [address] [facility] Work Phone: FOLATEOrdered By: Earlene deluna on 10-22-2019 Folate 9.2 ng/mL 2.8 - 20 ng/mL [facility] Work Phone: Glomerular Basement Membrane (GBM) Antibody IgGOrdered By: Jeana Pedraza on 10-22-2019 GBM Ab, IgG (IFA) Negative Negative NA [facility] Work Phone: Comment on above: INTERPRETIVE INFORMA [...] biopsy. Test developed and characteristics determined by [facility]. See Compliance Statement D: [employer] Performed by [facility], [address] [place] [id number] www.[employer], Malvin Slade MD, Lab. Director Iron and TIBCOrdered By: Al Irving on 10-22-2019 Interpretation and review of laboratory results Abnormal [facility] Work Phone: Iron [Mass/Vol] 64 ug/dL 49 - 181 ug/dL [facility] Work Phone: 1 Sat 27 % 15 - 50 % [facility] Work Phone: TIBC 234 ug/dL Low 261 - 497 ug/dL [facility] Work Phone: 1 Test Performed by [email or web address], [address] [place] [address] [facility] Work Phone: MagnesiumOrdered By: Delon Jessica on 10-22-2019 Magnesium [Mass/Vol] 2.0 mg/dL 1.6 - 2 .3 mg/dL [facility] Work Phone: 1 No Panel InformationOrdered By: Earlene Irving on 10-22-2019 Test Performed by [facility], [facility] [address] Work Phone: 1 No Panel InformationOrdered By: Delon Jessica on 10-22-2019 Interpretation and review of laboratory results Abnormal [facility] Work Phone: Test Performed by [email or web address], [address] Work Phone: 1 PhosphorusOrdered By: Patrick Jessica on 10-22-2019 Phosphate [Mass/Vol] 8.7 mg/dL High 2.5 - 4 .5 mg/dL [facility] Work Phone: T4, FREEOrdered By: Earlene toure on 10-22-2019 Free T4 [Mass/Vol] 1.16 ng/dL 0.78 - 2. 19 ng/dL [facility] Work Phone: 1 Test Performed by [facility], [address] Work Phone: TSH without ReflexOrdered By : Earlene Irving on 10-22-2019 TSH 0.836 u[IU]/mL 0.465 - 4.68 u[IU]/mL [facility] Work Phone: 1 Test Performed by [facility], [address] Work Phone: RENAL ARTERIAL DUPLEX COM PLETEOrdered By: Brett Encarnacion on 10-22-2019 [facility] Renal Artery Duplex Ordering Physician: Brett Encarnacion Contracts Intern: Laura Walsh Interpreting Physician: Luciano Shannon Location: [facility] Indications: Hypertension. Smoking history. Acute Kidney [...] supine position. Images were obtained using a [employer] E9 vascular ultrasound machine. The abdominal aorta, [...] + Kidney le (more content not included)... [facility] Work Phone: Mike, [place] Incoming Cardiology Results From [facility] - 10/22/2019 3:01 PM EST [facility] Renal Artery Duplex Ordering Physician: Brett Encarnacion Contracts Intern: Laura Walsh Interpreting Physician: Luciano Shannon Location: [facility] Indications: Hypertension. Smoking history. Acute Kidney [...] supine position. Images were obtained using a [employer] E9 vascular ultrasound machine. The abdominal aorta, [...] electronically signed by Luciano Shannon 10/22/2019 15:01 [facility] Work Phone: [phone] Vitamin [id number] By: Akin Irving on 10-22-2019 Cobalamin (Vitamin B12) [Mass/Vol] 959 pg/mL High 239 - 931 pg/mL [facility] Work Phone: [phone] Interpretation and review of laboratory results Abnormal [facility] Work Phone: [phone] Basic Metabolic PanelOrdered By: Delon Jessica on 10-21-2019 Anion gap [Moles/Vol] 16 mmol/L [facility] Work Phone: [phone] Calcium [Mass/Vol] 8.7 mg/dL 8.4 - 10. 4 mg/dL [facility] Work Phone: [phone] Chloride [Moles/Vol] 94 mmol/L Low 98 - 10 7 mmol/L [facility] Work Phone: [phone] CO2 [Moles/Vol] 25 mmol/L 22 - 30 mmol/L [facility] Work Phone: [phone] Creatinine [Mass/Vol] 11.16 mg/dL High 0.52 - 1.25 mg/dL [facility] Work Phone: [phone] EGFR IF NonAfrican Palauan 4.8 mL/min >60 [facility] Work Phone: Comment on above: Source- MDRD equatio n with creatinine calibration to IDMS(NKDEP) eGFR not recommended for drug dose adjustment GFR/1.73 sq M.predicted among blacks MDRD (S/P/Bld) [Vol rate/Area] 5.8 mL/min/{1.73_m2} >60 [facility] Work Phone: [phone] Glucose [Mass/Vol] 103 mg/dL High 70 - 100 mg/dL [facility] Work Phone: [phone] Potassium [Moles/Vol] 4.9 mmol/L 3.5 - 5.1 mmol/L [facility] Work Phone: [phone] Sodium [Moles/Vol] 135 mmol/L 135 - 145 mmol/L [facility] Work Phone: [phone] Urea nitrogen [Mass/Vol] 83 mg/dL High 7 - 20 mg/d L [facility] Work Phone: [phone] CBC Auto DifferentialOrdered By: Delon Jessica on 10-21-2019 Absolute Baso # 0.1 10*3/uL 0 - 0.2 10*3/uL [facility] Work Phone: [phone] Absolute Neut # 6.4 10*3/uL 1.8 - 7 10*3/uL [facility] Work Phone: [phone] Basophils/100 WBC (Bld) 0.9 % 0 - 2 % [facility] Work Phone: [phone] Eosinophils (Bld) [#/Vol] 0.2 10*3/uL 0 - 0.5 10*3/uL [facility] Work Phone: Eosinophils/100 WBC (Bld) 2.5 % 1 - 6 % [facility] Work Phone: [phone] Erythrocyte distribution width (RBC) [Ratio] 14.8 % High 11.5 - 14.5 % [facility] Work Phone: [phone] Granulocytes/100 WBC (Bld) 64.7 % 40 - 80 % [facility] Work Phone: [phone] Hematocrit (Bld) [Volume fraction] 27.6 % Low 40 - 52 % [facility] Work [phone] Hemoglobin (Bld) [Mass/Vol] 9.7 g/dL Low 13 - 18 g/dL [facility] Work Phone: [phone] Comment on above: Post Transfusion Interpretation and review of laboratory results Abnormal [facility] Work Phone: [phone] Lymphocytes (Bld) [#/Vol] 1.8 10*3/uL 1 - 4.3 10*3/uL [facility] Work Phone: [phone] 22 Lymphocytes/100 WBC (Bld) 18.5 % Low 20 - 40 % [facility] Work Phone: 1 MCH (RBC) [Entitic mass] 30.0 pg 26 - 34 pg [facility] Work Phone: 1 MCHC 35.3 % 32 - 36 % [facility] Work Phone: 1 MCV (RBC) [Entitic vol] 84.8 fL 80 - 98 fL [facility] [employer] Work Phone: 1 Monocytes (Bld) [#/Vol] 1.3 10*3/uL High 0 - 0.8 10*3/uL [facility] Work Phone: 1) Monocytes/100 WBC (Bld) 13.4 % High 2 - 10 % [facility] [employer] Work Phone: 1 Platelet mean volume (Bld) [Entitic vol] 7.8 fL 7.4 - 10.4 fL [facility] Work Phone: 1) Platelets (Bld) [#/Vol] 299 10*3/uL 140 - 440 10*3/uL [facility] Work Phone: 1 RBC (Bld) [#/Vol] 3.25 10*6/uL Low 4.4 - 5.9 10*6/uL [facility] Work Phone: 1 22 WBC (Bld) [#/Vol] 9.8 10*3/uL 3.6 - 10.7 10*3/uL [facility] Work Phone: 1 Test Performed by [facility], [address] [place] [id number] [facility] Work Phone: 1 Calcium, IonizedOrdered By: Delon Jessica on 10-21-2019 Interpretation and review of laboratory results Abnormal [facility] Work Phone: 1 Ionized Ca 4.10 mg/dL Low 4.3 - 5.2 mg/dL [facility] Work Phone: [phone] pH (Bld) 7.41 [pH] [facility] Work Phone: [phone] Test Performed by [email or web address], [address] [address] [facility] Work Phone: [phone] MagnesiumOrdered By: Delon Jessica on 10-21-2019 Magnesium [Mass/Vol] 1.9 mg/dL 1.6 - 2 .3 mg/dL [facility] Work Phone: [phone] Panel InformationOrdered By: Delon Jessica on 10-21-2019 Interpretation and review of laboratory results Abnormal [facility] Work Phone: [phone] Test Performed by [email or web address], [address] [place] [address] [facility] Work Phone: [phone] PERIPHERAL BLOOD SMEAR, PATH REVIEWOrdered By: Jeana Pedraza on 10-21-2019 Peripheral Smear see below [facility] Work Phone: [phone] Comment on above: See report under [facility] Pathology. Test Performed by [email or web address], [address] [place] [address] [facility] Work Phone: [phone] PhosphorusOrdered By: Patrick Jessica on 10-21-2019 Phosphate [Mass/Vol] 9.2 mg/dL High 2.5 - 4 .5 mg/dL [facility] Work Phone: [phone] US RETROPERITONEAL COMPLETEO rdered By: Randolph Liz on 10-21-2019 Patient Name: GLENN SNYDER ---Ultrasound--- Exam Date/Time 10/21/2019 15:32:01 EST Exam US Retroperitoneal Complete Ordering Physician [email or web address] JEREZ Accession Number [id number] CPT4 Codes 56149 () Reason For Exam blossom Report US [...] Phone: Mike, [facility] Incoming Radiology Results From [facility] - 10/21/2019 7:32 PM EST Patient Name: GLENN SNYDER ---Ultrasound--- Exam Date/Time 10/21/2019 15:32:01 EST Exam US Retroperitoneal Complete Ordering Physician RANDOLPH PALAFOX Accession Number [id number] CPT4 Codes 48064 () Reason For Exam blossom Report US [...] Ordering Physician MD ENCARNACION MATTHEW Accession Number [id number] CPT4 Codes 78567 () Reason For Exam vomiting Report ABDOMEN [...] Phone: Mike, [facility] Incoming Radiology Results From [facility] - 10/21/2019 6:30 PM EST Patient Name: GLENN SNYDER ---Diagnostic Radiology--- Exam Date/Time 10/21/2019 18:02:19 EST Exam CR Abdomen AP Ordering Physician MD ENCARNACION MATTHEW Accession Number [id number] CPT4 Codes 95852 () Reason For Exam vomiting Report ABDOMEN [...] on 10-20-2019 CIARAN TITER <1:40 <1:40 {titer} [facility] Work Phone: 1 Test Performed by [email or web address], [place] [address] [facility] Work Phone: Anti-Neutrophilic Cytoplasmi c AntibodyOrdered By: Jeana Pedraza on 10-20-2019 C-ANCA Not detected Not-Detected {titer} [facility] Work Phone: p-ANCA Titer Not detected Not-Detected {titer} [facility] Work Phone: Test Performed by [email or web address], [place] [address] [facility] Work Phone: Basic Metabolic PanelOrdered By: Brett Encarnacion on 10-20-2019 Anion gap [Moles/Vol] 15 mmol/L [facility] Work Phone: Calcium [Mass/Vol] 8.4 mg/dL [...] [facility] Work Phone: EGFR IF NonAfrican Palauan 5.9 mL/min >60 [facility] Work Phone: Comment on above: Source- MDRD equatio n with creatinine calibration to IDMS(NKDEP) eGFR not recommended for drug dose adjustment GFR/1.73 sq M.predicted among blacks MDRD (S/P/Bld) [Vol rate/Area] 7.1 mL/min/{1.73_m2} >60 [facility] Work Phone: [phone] Glucose [Mass/Vol] 110 mg/dL High 70 - 100 mg/dL [facility] Work Phone: Interpretation and review of laboratory results Abnormal [facility] Work Phone: [phone] Potassium [Moles/Vol] 4.0 mmol/L 3.5 - 5.1 mmol/L [facility] Work Phone: [phone] Sodium [Moles/Vol] 135 mmol/L 135 - 145 mmol/L [facility] Work Phone: [phone] Urea nitrogen [Mass/Vol] 76 mg/dL High 7 - 20 mg/d L [facility] Work Phone: [phone] Test Performed by [facility], [address] [place] [id number] [place], [place] [address] Work Phone: [phone] Basic Metabolic PanelOrdered By: Delon Jessica on 10-20-2019 Anion gap [Moles/Vol] 18 mmol/L [facility] Work Phone: [phone] Calcium [Mass/Vol] 7.9 mg/dL Low 8.4 - 10. 4 mg/dL [facility] Work Phone: [phone] Chloride [Moles/Vol] 95 mmol/L Low 98 - 10 7 mmol/L [facility] Work Phone: [phone] CO2 [Moles/Vol] 24 mmol/L 22 - 30 mmol/L [facility] Work Phone: [phone] Creatinine [Mass/Vol] 13.53 mg/dL High 0.52 - 1.25 mg/dL [facility] Work Phone: [phone] EGFR IF NonAfrican Palauan 3.9 mL/min >60 [facility] Work Phone: [phone] Comment on above: Source- MDRD equatio n with creatinine calibration to IDMS(NKDEP) eGFR not recommended for drug dose adjustment GFR/1.73 sq M.predicted among blacks MDRD (S/P/Bld) [Vol rate/Area] 4.7 mL/min/{1.73_m2} >60 [facility] Work Phone: [phone] Glucose [Mass/Vol] 102 mg/dL High 70 - 100 mg/dL [facility] Work Phone: [phone] Interpretation and review of laboratory results Abnormal [facility] Work Phone: [phone] Potassium [Moles/Vol] 4.7 mmol/L 3.5 - 5.1 mmol/L [facility] Work Phone: 1 Sodium [Moles/Vol] 136 mmol/L 135 - 145 mmol/L [facility] Work Phone: Urea nitrogen [Mass/Vol] 123 mg/dL High 7 - 20 mg/d L [facility] Work Phone: Test Performed by [email or web address], [address] [place], [place] [address] [facility] Work Phone: CBC Auto DifferentialOrdered By: Delon Jessica on 10-20-2019 Absolute Baso # 0.0 10*3/uL 0 - 0.2 10*3/uL [facility] Work Phone: Absolute Neut # 6.2 10*3/uL 1.8 - 7 10*3/uL [facility] Work Phone: Basophils/100 WBC (Bld) 0.4 % 0 - 2 % [facility] Work Phone: Eosinophils (Bld) [#/Vol] 0.1 10*3/uL 0 - 0.5 10*3/uL [facility] Work Phone: Eosinophils/100 WBC (Bld) 1.1 % 1 - 6 % [facility] Work Phone: Erythrocyte distribution width (RBC) [Ratio] 13.4 % 11.5 - 14.5 % [facility] Work Phone: Granulocytes/100 WBC (Bld) 69.5 % 40 - 80 % [facility] Work Phone: Hematocrit (Bld) [Volume fraction] 19.3 % Low 40 - 52 % [facility] Work Phone: Hemoglobin (Bld) [Mass/Vol] 6.6 g/dL Critically low 13 - 18 g/dL [facility] Work Phone: Interpretation and review of laboratory results Abnormal [facility] Work Phone: Lymphocytes (Bld) [#/Vol] 1.6 10*3/uL 1 - 4.3 10*3/uL [facility] Work Phone: Lymphocytes/100 WBC (Bld) 18.3 % Low 20 - 40 % [facility] Work Phone: 1 MCH (RBC) [Entitic mass] 29.4 pg 26 - 34 pg [facility] Work Phone: MCHC 34.1 % 32 - 36 % [facility] Work Phone: 1 MCV (RBC) [Entitic vol] 86.2 fL 80 - 98 fL S [facility] Work Phone: Monocytes (Bld) [#/Vol] 1.0 10*3/uL High 0 - 0.8 10*3/uL [facility] Work Phone: 1 Monocytes/100 WBC (Bld) 10.7 % High 2 - 10 % [facility] Work Phone: Platelet mean volume (Bld) [Entitic vol] 7.4 fL 7.4 - 10.4 fL [facility] Work Phone: Platelets (Bld) [#/Vol] 267 10*3/uL 140 - 440 10*3/uL [facility] Work Phone: RBC (Bld) [#/Vol] 2.24 10*6/uL Low 4.4 - 5.9 10*6/uL [facility] Work Phone: WBC (Bld) [#/Vol] 9.0 10*3/uL 3.6 - 10.7 10*3/uL [facility] Work Phone: Calcium, IonizedOrdered By: Delon Jessica on 10-20-2019 Interpretation and review of laboratory results Abnormal [facility] Work Phone: Ionized Ca 3.80 mg/dL Low 4.3 - 5.2 mg/dL [facility] Work Phone: pH (Bld) 7.41 [pH] [facility] Work Phone: Test Performed by [email or web address], [address] [place] [address] [facility] Work Phone: Hemoglobin and Hematocrit, B loodOrdered By: Brett Encarnacion on 10-20-2019 Hematocrit (Bld) [Volume fraction] 25.2 % Low 40 - 52 % [facility] Work Phone: 1 Hemoglobin (Bld) [Mass/Vol] 9.0 g/dL Low 13 - 18 g/dL [facility] Work Phone: 1 Interpretation and review of laboratory results Abnormal [facility] Work Phone: 1 Test [facility] by [facility], [address] [place] [address] [facility] Work Phone: Hemoglobin and Hematocrit, B loodOrdered By: Delon Jessica on 10-20-2019 Hematocrit (Bld) [Volume fraction] 19.6 % Low 40 - 52 % [facility] Work Phone: 1 Hemoglobin (Bld) [Mass/Vol] 6.7 g/dL Critically low 13 - 18 g/dL [facility] Work Phone: 1 Interpretation and review of laboratory results Abnormal [facility] Work Phone: 1 Test Performed by [facility], [address] [place] [address] [facility] Work Phone: Laboratory - Blood bankOrder ed By: Delon Jessica on 10-20-2019 ABO and Rh group Nom (Bld) 9500 [facility] Work Phone: MagnesiumOrdered By: Delon Jessica on 10-20-2019 Magnesium [Mass/Vol] 1.8 mg/dL 1.6 - 2 .3 mg/dL [facility] Work Phone: No Panel InformationOrdered By: Delon Jessica on 10-20-2019 Test Performed by [facility], [address] [place] [address] [facility] Work Phone: 1 Test Performed by [facility], [address] [place], [place] [address]A Work Phone: PREPARE RBC (CROSSMATCH), 2 UnitsOrdered By: Delon Jessica on 10-20-2019 Blood product unit ID (Dose) [#] [id number] [facility] Work Phone: 1 Blood product unit ID (Dose) [#] [id number] [facility] Work Phone: [phone] Dispense Status Blood Bank transfused [facility] Work Phone: [phone] Expiration Date [id number] [facility] Work Phone: [phone] Product Code Blood Bank [id number] [facility] Work Phone: [phone] [facility] Work Phone: [phone] PhosphorusOrdered By: Patrick Jessica on 10-20-2019 Interpretation and review of laboratory results Abnormal [facility] Work Phone: [phone] Phosphate [Mass/Vol] 12.3 mg/dL High 2.5 - 4 .5 mg/dL [facility] Work Phone: [phone] RBC MORPHOLOGYOrdered By: Caleb Jessica on 10-20-2019 Hypochromia Slight [facility] Work Phone: [phone] Poikilocytes Slight [facility] Work Phone: [phone] RBC morphology finding Nom (Bld) ABNORMAL [facility] Work Phone: [phone] Surgical PathologyOrdered By : Jeana Pedraza on 10-20-2019 Surgical Pathology Report SEE BELOW [facility] Work Phone: [phone] [facility] PATHOLOG[facility] AND LABORATORY MEDICINE [address] [place], [place] [id number] FINAL PERIPHERAL BLOOD REPORT NAME: GLENN SNYDER : 1965 53 Y M BILLING NO.: [id number] LOCATION: [place] [address] 5 PROCEDURE 10/19/2019 DATE: SURGEON: JEANA PEDRAZA MD RECEIVED DATE: 10/20/2019 ATTENDING BRETT ENCARNACION REPORT DATE: 10/20/2019 : COPIES TO: DIAGNOSIS: NORMOCYTIC ANEMIA WITH ANISOCYTOSIS, INCLUDING SCHISTOCYTES AND MILD AGGLUTINATION, RULE OUT ANEMIA OF CHRONIC INFLAMMATION/RENAL DISEASE, IRON/NUTRITIONAL DEFICIENCIES, COAGULOPATHY AND/OR PARAPROTEINEMIA NO BLASTS OR DYSGRANULOPOIESIS IS SEEN. 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 CLINICAL INFORMATION: Peripheral [...] characteristics determined by the clinical laboratories of [facility]. They have not been cleared by [...] specimens. DEPARTMENT OF PATHOLOGY AND LABORATORY MEDICINE [place], [place] [address] [facility] Work Phone: Add On Lab TestOrdered By: Huseyin Encarnacion on 10-19-2019 Add On Rejected [facility] Work Phone: 1 Test Performed by [email or web address], [address] [place], [place] [address] [facility] Work Phone: 1 Add On Lab TestOrdered By: Cecil Nieves on 10-19-2019 Add On Accepted [facility] Work Phone: 1 Comment on above: Specimen available & acceptable for analysis. Test Performed by [email or web address], [address] [place], [place] [address] [facility] Work Phone: 1 Add On Accepted [facility] Work Phone: 1 Comment on above: Specimen available & acceptable for analysis. Test Performed by [email or web address], [address] [place], [place] [address] [facility] Work Phone: 1 Basic Metabolic PanelOrdered By: Brett Encarnacion on 10-19-2019 Anion gap [Moles/Vol] 20 mmol/L [facility] Work Phone: 1 Calcium [Mass/Vol] 8.4 mg/dL 8.4 - 10. 4 mg/dL [facility] Work Phone: 1 Chloride [Moles/Vol] 96 mmol/L Low 98 - 10 7 mmol/L [facility] Work Phone: CO2 [Moles/Vol] 18 mmol/L Low 22 - 30 mmol/L [facility] Work Phone: 1 Creatinine [Mass/Vol] 12.26 mg/dL High 0.52 - 1.25 mg/dL [facility] Work Phone: EGFR IF NonAfrican Palauan 4.3 mL/min >60 [facility] Work Phone: Comment [...] [facility] Work Phone: Potassium [Moles/Vol] 4.4 mmol/L 3.5 - 5.1 mmol/L [facility] Work Phone: Sodium [Moles/Vol] 134 mmol/L Low 135 - 145 mmol/L [facility] Work Phone: Urea nitrogen [Mass/Vol] 118 mg/dL High 7 - 20 mg/d L [facility] Work Phone: Test Performed by [email or web address], [address] [place], [place] [address] [facility] Work Phone: Blood Occult Stool Screen #1 Ordered By: Callie Nieves on 10-19-2019 Hemoglobin.gastrointesti nal Ql (Stl) Negative Negative NA [facility] Work Phone: Test Performed by [email or web address], [address] [place], [place] [id number] [place], [place] [address] Work Phone: [phone] ComplementOrdered By: Nadia Pedrzaa on 10-19-2019 C3 Complement 115 mg/dL 85 [...] 7.7 10*3/uL High 1.8 - 7 10*3/uL [facility] Work Phone: Basophils/100 WBC (Bld) 0.1 % 0 - 2 % [facility] Work Phone: Eosinophils (Bld) [#/Vol] 0.0 10*3/uL 0 - 0.5 10*3/uL [facility] Work Phone: [phone] Eosinophils/100 WBC (Bld) 0.0 % Low 1 - 6 % [facility] Work Phone: [phone] 22 Erythrocyte distribution width (RBC) [Ratio] 13.1 % 11.5 - 14.5 % [facility] Work Phone: 1 Granulocytes/100 WBC (Bld) 93.1 % High 40 - 80 % [facility] Work Phone: 1 Hematocrit (Bld) [Volume fraction] 26.9 % Low 40 - 52 % [facility] Work Phone: 1 Hemoglobin (Bld) [Mass/Vol] 9.1 g/dL Low 13 - 18 g/dL [facility] Work Phone: 1 Interpretation and review of laboratory results Abnormal [facility] Work Phone: 1 Lymphocytes (Bld) [#/Vol] 0.4 10*3/uL Low 1 - 4.3 10*3/uL [facility] Work Phone: 1 Lymphocytes/100 WBC (Bld) 5.1 % Low 20 - 40 % [facility] Work Phone: 1 MCH (RBC) [Entitic mass] 29.2 pg 26 - 34 pg [facility] Work Phone: MCHC 33.8 % 32 - 36 % [facility] Work Phone: 1 MCV (RBC) [Entitic vol] 86.5 fL 80 - 98 fL [facility] Work Phone: Monocytes (Bld) [#/Vol] 0.1 10*3/uL 0 - 0.8 10*3/uL [facility] Work Phone: 1 22 Monocytes/100 WBC (Bld) 1.7 % Low 2 - 10 % [facility] Work Phone: Platelet mean volume (Bld) [Entitic vol] 8.0 fL 7.4 - 10.4 fL [facility] Work Phone: Platelets (Bld) [#/Vol] 246 10*3/uL 140 - 440 10*3/uL [facility] Work Phone: RBC (Bld) [#/Vol] 3.11 10*6/uL Low 4.4 - 5.9 10*6/uL [facility] Work Phone: WBC (Bld) [#/Vol] 8.3 10*3/uL 3.6 - 10.7 10*3/uL [facility] Work Phone: Test Performed by [email or web address], [address] [place], [place] [address] [facility] Work Phone: [phone] CT Abdomen Pelvis Wo Contras tOrdered By: Callie Nieves on 10-19-2019 Patient Name: GLENN SNYDER ---CT--- Exam Date/Time 10/19/2019 08:12:[address] Abdomen/Pelvis (No PO, No IV) Ordering Physician DO NIEVES DAVID J Accession Number [id number] CPT4 Codes 11542 (CT Abdomen/Pelvis (No PO, No IV)) Reason [...] bilateral renal atrophy. No urologic calcification. 3. Rstj-vd-ayonojge diverticulosis. No acute diverticulitis. Report Dictated on [...] Physician DO NIEVES DAVID J Accession Number [id number] CPT4 Codes 50529 (CT Abdomen/Pelvis (No PO, No IV)) Reason [...] bilateral renal atrophy. No urologic calcification. 3. Tlml-sy-yjjgopvh diverticulosis. No acute diverticulitis. Report Dictated on --- Final --- Dictating Physician: MD BUTCHER ANTHONY J Signed Date and Time: 10/19/2019 8:40 am Signed by: MD BUTCHER ANTHONY J Transcribed Date and Time: 10/19/2019 8:41 [facility] Work Phone: [phone] Comprehensive Metabolic Pane lOrdered By: Callie Nieves on 10-19-2019 Albumin [Mass/Vol] 3.9 g/dL 3.5 - 5 g/dL [facility] Work Phone: [phone] ALP [Catalytic activity/Vol] 58 U/L 38 - 126 U/L [facility] Work Phone: [phone] ALT [Catalytic activity/Vol] 27 U/L 13 - 69 U/L [facility] Work Phone: [phone] Anion gap [Moles/Vol] 22 mmol/L [facility] Work Phone: [phone] AST [Catalytic activity/Vol] 41 U/L 15 - 46 U/L [facility] Work Phone: [phone] Bilirubin [Mass/Vol] 0.5 mg/dL 0.2 - 1 .3 mg/dL [facility] Work Phone: [phone] Calcium [Mass/Vol] 8.0 mg/dL Low 8.4 - 10. 4 mg/dL [facility] Work Phone: Chloride [Moles/Vol] 106 mmol/L 98 - 10 7 mmol/L [facility] Work Phone: CO2 [Moles/Vol] 8 mmol/L Low 22 - 30 mmol/L [facility] Work Phone: [phone] Creatinine [Mass/Vol] 17.04 mg/dL High 0.52 - 1.25 mg/dL [facility] Work Phone: [phone] EGFR IF NonAfrican Palauan 3.0 mL/min >60 [facility] Work Phone: Comment on above: Source- MDRD equatio n with creatinine calibration to IDMS(NKDEP) eGFR not recommended for drug dose adjustment GFR/1.73 sq M.predicted among blacks MDRD (S/P/Bld) [Vol rate/Area] 3.6 mL/min/{1.73_m2} >60 [facility] Work Phone: [phone] Glucose [Mass/Vol] 93 mg/dL 70 - 100 mg/dL [facility] Work Phone: [phone] Interpretation and review of laboratory results Abnormal [facility] Work Phone: Potassium [Moles/Vol] 6.6 mmol/L Critically high 3.5 - 5.1 mmol/L [facility] Work Phone: 1 Protein [Mass/Vol] 7.1 g/dL 6.3 - 8.2 g/dL [facility] Work Phone: Sodium [Moles/Vol] 136 mmol/L 135 - 145 mmol/L [facility] Work Phone: [phone] Urea nitrogen [Mass/Vol] 179 mg/dL High 7 - 20 mg/d L [facility] Work Phone: [phone] Test Performed by [facility], [address] [place] [id number] [place], [place] [address] Work Phone: [phone] Albumin [Mass/Vol] 4.3 g/dL 3.5 - 5 g/dL [facility] Work Phone: [phone] ALP [Catalytic activity/Vol] 68 U/L 38 - 126 U/L [facility] Work Phone: [phone] ALT [Catalytic activity/Vol] 31 U/L 13 - 69 U/L [facility] Work Phone: [phone] Anion gap [Moles/Vol] 22 mmol/L [facility] Work Phone: [phone] [Catalytic activity/Vol] 38 U/L 15 - 46 U/L [facility] Work Phone: [phone] Bilirubin [Mass/Vol] 0.3 mg/dL 0.2 - 1 .3 mg/dL [facility] Work Phone: 1 Calcium [Mass/Vol] 8.1 mg/dL Low 8.4 - 10. 4 mg/dL [facility] Work Phone: Chloride [Moles/Vol] 104 mmol/L 98 - 10 7 mmol/L [facility] Work Phone: CO2 [Moles/Vol] 10 mmol/L Low 22 - 30 mmol/L [facility] Work Phone: Creatinine [Mass/Vol] 17.95 mg/dL High 0.52 - 1.25 mg/dL [facility] Work Phone: EGFR IF NonAfrican Palauan 2.8 mL/min >60 [facility] Work Phone: Comment on above: Source- MDRD equatio n with creatinine calibration to IDMS(NKDEP) eGFR not recommended for drug dose adjustment GFR/1.73 sq M.predicted among blacks MDRD (S/P/Bld) [Vol rate/Area] 3.4 mL/min/{1.73_m2} >60 [facility] Work Phone: 1 Glucose [Mass/Vol] 101 mg/dL High 70 - 100 mg/dL [facility] Work Phone: Interpretation and review of laboratory results Abnormal [facility] Work Phone: Potassium [Moles/Vol] 7.3 mmol/L Critically high 3.5 - 5.1 mmol/L [facility] Work Phone: Protein [Mass/Vol] 7.9 g/dL 6.3 - 8.2 g/dL [facility] Work Phone: Sodium [Moles/Vol] 136 mmol/L 135 - 145 mmol/L [facility] Work Phone: Urea nitrogen [Mass/Vol] 179 mg/dL High 7 - 20 mg/d L [facility] Work Phone: Test Performed by [email or web address], [address] 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1965 Requested By: CALLIE NIEVES Order Number: [id number] Reading MD: Alessia Tapia Measurements Intervals [place] Rate: 97 P: 78 TX: 128 QRS: 49 QRSD: 106 T: 83 QT: 376 QTc: 478 Interpretive Statements SINUS RHYTHM LEFT ATRIAL ABNORMALITY INCOMPLETE RIGHT BUNDLE BRANCH BLOCK LEFT VENTRICULAR HYPERTROPHY BORDERLINE PROLONGED QT INTERVAL No previous ECG available for comparison Electronically Signed On 10-19-2019 8:49:06 EST by Alessia Tapia [facility] Work Phone: [phone] HEPATITIS B SURFACE ANTIGENO rdered By: Jeana Pedraza on 10-19-2019 Hepatitis B Surface Ag Not detected Not-D etected [facility] Work Phone: [phone] HIV ScreenOrdered By: Adan Encarnacion on 10-19-2019 HIV 1+2 AB+[id number] AG, EIA Non-Reactive Nonreactive NA [facility] Work Phone: [phone] Comment on above: Results obtained usi ng [...] # 0.1 10*3/uL 0 - 0.2 10*3/uL [facility] Work Phone: 1 Absolute Neut # 11.3 10*3/uL High 1.8 - 7 10*3/uL [facility] Work Phone: 22 Basophils/100 WBC (Bld) 0.6 % 0 - 2 % S [facility] Work Phone: Eosinophils (Bld) [#/Vol] 0.2 10*3/uL 0 - 0.5 10*3/uL [facility] Work Phone: 1 Eosinophils/100 WBC (Bld) 1.2 % 1 - 6 % [facility] Work Phone: Erythrocyte distribution width (RBC) [Ratio] 13.4 % 11.5 - 14.5 % [facility] Work Phone: 22 Granulocytes/100 WBC (Bld) 80.5 % High 40 - 80 % [facility] Work Phone: Hematocrit (Bld) [Volume fraction] 23.2 % Low 40 - 52 % [facility] Work Phone: Hemoglobin (Bld) [Mass/Vol] 7.8 g/dL Low 13 - 18 g/dL [facility] Work Phone: Interpretation and review of laboratory results Abnormal [facility] Work Phone: Lymphocytes (Bld) [#/Vol] 1.4 10*3/uL 1 - 4.3 10*3/uL [facility] Work Phone: 22 Lymphocytes/100 WBC (Bld) 9.8 % Low 20 - 40 % [facility] Work Phone: MCH (RBC) [Entitic mass] 29.4 pg 26 - 34 pg [facility] Work Phone: MCHC 33.6 % 32 - 36 % [facility] Work Phone: MCV (RBC) [Entitic vol] 87.4 fL 80 - 98 fL [facility] Work Phone: 1 Monocytes (Bld) [#/Vol] 1.1 10*3/uL High 0 - 0.8 10*3/uL [facility] Work Phone: 1 Monocytes/100 WBC (Bld) 7.9 % 2 - 10 % [facility] Work Phone: Platelet mean volume (Bld) [Entitic vol] 7.6 fL 7.4 - 10.4 fL [facility] Work Phone: 1 Platelets (Bld) [#/Vol] 293 10*3/uL 140 - 440 10*3/uL [facility] Work Phone: 1 RBC (Bld) [#/Vol] 2.66 10*6/uL Low 4.4 - 5.9 10*6/uL [facility] Work Phone: WBC (Bld) [#/Vol] 14.1 10*3/uL High 3.6 - 10.7 10*3/uL [facility] Work Phone: 1 Test Performed by [email or web address], [address] [place], [place] [address] [facility] Work Phone: Hepatitis C AntibodyOrdered By: Jeana Pedraza on 10-19-2019 Hepatitis C Ab Not detected Not-Detected NA [facility] Work Phone: Comment on above: Patients with DETECT ED Hepatitis C Ab results should have a new specimen submitted for supplemental testing with a Hepatitis C Quantitative RNA assay (viral load), if clinically indicated. MagnesiumOrdered By: Callie shaw on 10-19-2019 Magnesium [Mass/Vol] 2.1 mg/dL 1.6 - 2 .3 mg/dL [facility] Work Phone: Test Performed by [email or web address], [address] [place], [place] [address] [facility] Work Phone: No Panel InformationOrdered By: Brett Encarnacion on 10-19-2019 Test Performed by [email or web address], [address] [place] [address] [facility] Work Phone: 1 No Panel InformationOrdered By: Jeana Pedraza on 10-19-2019 Test Performed by [email or web address], [address] [place], [place] [address] [facility] Work Phone: PROCALCITONINOrdered By: Eldon Encarnacion on 10-19-2019 Interpretation See Below [facility] Work Phone: Comment on above: PCT <0.50 = Low risk of severe sepsis and/or septic shock. PCT >2.00 = High risk of severe sepsis and/or septic shock. Interpretation and review of laboratory results Abnormal [facility] Work Phone: 1 Procalcitonin 0.74 ng/mL Abnormal <0.10 [facility] Work Phone: PhosphorusOrdered By: Callie Nieves on 10-19-2019 Interpretation and review of laboratory results Abnormal [facility] Work Phone: Phosphate [Mass/Vol] 14.8 mg/dL High 2.5 - 4 .5 mg/dL [facility] Work Phone: Test Performed by [email or web address], [address] [place], [place] [address] [facility] Work Phone: TYPE AND SCREENOrdered By: Cecil Nieves on 10-19-2019 [employer] [facility] Work Phone: Rh Type Negative [facility] Work Phone: Comment on above: Test Performed by [facility], [address] [place], [place] [address] [address] [facility], [address] [place], [place] [address] [facility] Work Phone: TroponinOrdered By: Callie garcia on 10-19-2019 Interpretation and review of laboratory results Abnormal [facility] Work Phone: Troponin I.cardiac [Mass/Vol] 0.075 ng/mL High 0 - 0.034 ng/mL [facility] Work Phone: Comment on above: . Test Performed by [email or web address], [address] [place], [place] [address] [facility] Work Phone: [phone] UrinalysisOrdered By: Callie Nieves on 10-19-2019 AMORPHOUS CRYSTAL Few Negative /[HPF] [facility] Work Phone: [phone] Appearance (U) Clear Clear NA [facility] Work Phone: 1 Bacteria, UA Few Negative /[HPF] [facility] Work Phone: 1 Bilirubin Urine Negative Negative mg/dL [facility] Work Phone: 1 Color (U) Colorless Lt. Yellow NA [facility] Work Phone: [phone] Glucose, Ur 200 mg/dL Normal (<70) [facility] Work Phone: [phone] Ketones Ql (U) Negative Negative mg/dL [facility] Work Phone: [phone] LEUKOCYTES, UA Negative Negative Juliana/uL [facility] Work Phone: [phone] Mucous Threads Few Negative /[LPF] [facility] Work Phone: 1 Nitrite, Urine Negative Negative NA [facility] Work Phone: 1 Occult Blood,Urine 0.2 mg/dL Negative [facility] Work Phone: 1 pH (U) 6.0 [pH] [facility] Work Phone: Protein (U) [Mass/Vol] 200 mg/dL Negative [facility] Work Phone: [phone] RBC, UA 6-10 0 - 2 /[HPF] [facility] Work Phone: 1 Specific [place], Urine 1.009 S [facility] Work Phone: 1 Squam Epithel, UA 0-2 3 - 5 /[HPF] [facility] Work Phone: [phone] Urobilinogen, Urine Normal Normal ( 0-1) mg/dL [facility] Work Phone: [phone] WBC, UA 6-10 0 - 5 /[HPF] [facility] Work Phone: [phone] Test Performed by [email or web address], [address] [place] [id number] [facility] Work Phone: [phone] XR CHEST PORTABLEOrdered By: Brett Encarnacion on 10-19-2019 Patient Name: GLENN SNYDER ---Diagnostic Radiology--- Exam Date/Time 10/19/2019 12:11:06 EST Exam CR Chest Portable Ordering Physician MD ENCARNACION MATTHEW Accession Number [id number] CPT4 Codes 72909 () Reason For Exam line placement/vascath Report [...] Phone: Mike, [facility] Incoming Rad[facility] Results From [facility] - 10/19/2019 12:57 PM EST Patient Name: GLENN SNYDER ---Diagnostic Radiology--- Exam Date/Time 10/19/2019 12:11:06 EST Exam CR Chest Portable Ordering Physician MD ENCARNACION MATTHEW Accession Number [id number] CPT4 Codes 65209 () Reason For Exam line placement/vascath Report [...] 10/19/2019 12:56 [facility] Work Phone: Vital Signs Date Time Vital Sign Value Performing Clinician Angelia sweet 04-17-2025 09:36-0400 Body height 177.8 cm Keiry Solares MD Work Phone: [facility] 04-17-2025 09:36-0400 Body mass index (BMI) [Ratio] 21.81 kg/m2 Keiry Solares MD Work Phone: [facility] 04-17-2025 09:36-0400 Body temperature 98.01 [degF] Keiry Solares MD Work Phone: [facility] 04-17-2025 09:36-0400 Body weight 68.95 kg Keiry Solares MD Work Phone: [facility] 04-17-2025 09:36-0400 Diastolic blood pressure 88 mm[Hg] Keiry Solares MD Work Phone: [facility] 04-17-2025 09:36-0400 Respiratory rate 18 /min Keiry Solares MD Work Phone: [facility] 04-17-2025 09:36-0400 Systolic blood pressure 113 mm[Hg] Keiry Solares MD Work Phone: [facility] 04-17-2025 09:29-0400 Heart rate 81 /min Keiry Solares MD Work Phone: [facility] 04-17-2025 09:29-0400 SaO2% (BldA) [Mass fraction] 100 % Keiry Solares MD Work Phone: [facility] 04-09-2025 15:00-0400 Body temperature 98.29 [degF] [employer] Work Phone: [facility] 04-09-2025 15:00-0400 Diastolic blood pressure 64 mm[Hg] Leilani Aba Work Phone: [facility] 04-09-2025 15:00-0400 Heart rate 90 /min Leilani Aba Work Phone: [facility] 04-09-2025 15:00-0400 Respiratory rate 16 /min Leilani Aba Work Phone: [facility] 04-09-2025 15:00-0400 SaO2% (BldA) [Mass fraction] 98 % Leilani Aba Work Phone: [facility] 04-09-2025 15:00-0400 Systolic blood pressure 117 mm[Hg] Leilani Aba Work Phone: [facility] 04-09-2025 11:58-0400 Body height 177.8 cm Leilani Aba Work Phone: [facility] 04-09-2025 11:58-0400 Body mass index (BMI) [Ratio] 21.52 kg/m2 Leilani Aba Work Phone: [facility] 04-09-2025 11:58-0400 Body weight 68.04 kg [employer] Work Phone: [facility] 04-05-2025 20:00-0400 Diastolic blood pressure 89 mm[Hg] Dieter Villegas MD Work Phone: [facility] 04-05-2025 20:00-0400 Heart rate 91 /min Dieter Villegas MD Work Phone: [facility] 04-05-2025 20:00-0400 Respiratory rate 16 /min Dieter Villegas MD Work Phone: [facility] 04-05-2025 20:00-0400 SaO2% (BldA) [Mass fraction] 97 % Dieter Villegas MD Work Phone: [facility] 04-05-2025 20:00-0400 Systolic blood pressure 148 mm[Hg] Dieter Villegas MD Work Phone: [facility] 04-05-2025 17:15-0400 Body temperature 97.9 [degF] Dieter Villegas MD Work Phone: [facility] 04-05-2025 10:15-0400 Body height 177.8 cm Dieter Villegas MD Work Phone: [facility] 04-05-2025 10:15-0400 Body mass index (BMI) [Ratio] 21.09 kg/m2 Dieter Villegas MD Work Phone: [facility] 04-05-2025 10:15-0400 Body weight 66.68 kg Dieter Villegas MD Work Phone: [facility] 03-21-2025 16:02-0400 Body temperature 98.29 [degF] Keiry Solares MD Work Phone: [facility] 03-21-2025 16:02-0400 Diastolic blood pressure 85 mm[Hg] Keiry Solares MD Work Phone: [facility] 03-21-2025 16:02-0400 Heart rate 71 /min Keiry Solares MD Work Phone: [facility] 03-21-2025 16:02-0400 Respiratory rate 18 /min Keiry Solares MD Work Phone: [facility] 03-21-2025 16:02-0400 SaO2% (BldA) [Mass fraction] 94 % Keiry Solares MD Work Phone: [facility] 03-21-2025 16:02-0400 Systolic blood pressure 147 mm[Hg] Keiry Solares MD Work Phone: [facility] 03-21-2025 03:15-0400 Body mass index (BMI) [Ratio] 22.24 kg/m2 Keiry Solares MD Work Phone: [facility] 03-21-2025 03:15-0400 Body weight 70.31 kg Keiry Solares MD Work Phone: [facility] 03-14-2025 16:17-0400 Body height 177.8 cm Keiry Solares MD Work Phone: [facility] 03-05-2025 14:03-0400 Body temperature 97 [degF] Palak Alya DO Work Phone: [facility] 03-05-2025 14:03-0400 Diastolic blood pressure 83 mm[Hg] Palak Alya DO Work Phone: [facility] 03-05-2025 14:03-0400 Heart rate 78 /min Palak Alya DO Work Phone: [facility] 03-05-2025 14:03-0400 Respiratory rate 16 /min Palak Alya DO Work Phone: [facility] 03-05-2025 14:03-0400 SaO2% (BldA) [Mass fraction] 100 % Palak Alya DO Work Phone: [facility] 03-05-2025 14:03-0400 Systolic blood pressure 137 mm[Hg] Palak Alya DO Work Phone: [facility] 02-23-2025 14:13-0400 Body height 177.8 cm Pal[facility] 02-23-2025 14:13-0400 Body mass index (BMI) [Ratio] 19.23 kg/m2 Palak lAya DO Work Phone: [facility] 02-23-2025 14:13-0400 Body weight 60.78 kg Palak Alya DO Work Phone: [facility] 02-14-2025 10:30-0400 Body height 177.8 cm Mikala JOYarraa Work Phone: [facility] 02-14-2025 10:30-0400 Body mass index (BMI) [Ratio] 18.65 kg/m2 Mikala JODeep NinesC Work Phone: [facility] 02-14-2025 10:30-0400 Body temperature 96.8 [degF] Mikala JO-C Work Phone: [facility] 02-14-2025 10:30-0400 Body weight 58.97 kg Mikala JO-C Work Phone: [facility] 02-14-2025 10:30-0400 Diastolic blood pressure 72 mm[Hg] Mikala Day PA-C Work Phone: [facility] 02-14-2025 10:30-0400 Heart rate 89 /min Mikala Day PA-C Work Phone: [facility] 02-14-2025 10:30-0400 SaO2% (BldA) [Mass fraction] 98 % Mikala JO-C Work Phone: [facility] 02-14-2025 10:30-0400 Systolic blood pressure 138 mm[Hg] Mikala Day PA-C Work Phone: [facility] 02-01-2025 15:02-0400 Body temperature 96.69 [degF] Lazaro Rojo MD Work Phone: [facility] 02-01-2025 15:02-0400 Diastolic blood pressure 60 mm[Hg] Lazaro Rojo MD Work Phone: [facility] 02-01-2025 15:02-0400 Heart rate 81 /min Lazaro Rojo MD Work Phone: [facility] 02-01-2025 15:02-0400 Respiratory rate 16 /min Lazaro Rojo MD Work Phone: [facility] 02-01-2025 15:02-0400 SaO2% (BldA) [Mass fraction] 98 % Lazaro Rojo MD Work Phone: [facility] 02-01-2025 15:02-0400 Systolic blood pressure 118 mm[Hg] Lazaro Rojo MD Work Phone: [facility] 02-01-2025 05:36-0400 Body mass index (BMI) [Ratio] 14.58 kg/m2 Lazaro Rojo MD Work Phone: [facility] 02-01-2025 05:36-0400 Body weight 46.1 kg Lazaro Rojo MD Work Phone: [facility] 01-30-2025 10:02-0400 Body height 177.8 cm Lazaro Rojo MD Work Phone: [facility] 08-28-2024 15:33-0500 Body height 177.8 cm Jr Shah MD Work Phone: [facility] 08-28-2024 15:33-0500 Body mass index (BMI) [Ratio] 29.56 kg/m2 Jr Shah MD Work Phone: [facility] 08-28-2024 15:33-0500 Body weight 93.44 kg Jr Shah MD Work Phone: [facility] 08-28-2024 15:33-0500 Diastolic blood pressure 80 mm[Hg] Jr Shah MD Work Phone: [facility] 08-28-2024 15:33-0500 Heart rate 75 /min Jr Shah MD Work Phone: [facility] 08-28-2024 15:33-0500 Systolic blood pressure 130 mm[Hg] Jr Shah MD Work Phone: [facility] 11-12-2023 14:16-0500 Diastolic blood pressure 84 mm[Hg] Quiana Contreras ELECTRICAL APPLIANCE REPAIRER - ASSOCIATE Work Phone: [facility] 11-12-2023 14:16-0500 Systolic blood pressure 138 mm[Hg] Quiana Contreras ELECTRICAL APPLIANCE REPAIRER - ASSOCIATE Work Phone: [facility] 11-12-2023 13:41-0500 Body height 177.8 cm uQiana Contreras ELECTRICAL APPLIANCE REPAIRER - ASSOCIATE Work Phone: [facility] 11-12-2023 13:41-0500 Body mass index (BMI) [Ratio] 29.84 kg/m2 Quiana Contreras ELECTRICAL APPLIANCE REPAIRER - ASSOCIATE Work Phone: [facility] 11-12-2023 13:41-0500 Body weight 94.35 kg Quiana Contreras ELECTRICAL APPLIANCE REPAIRER - ASSOCIATE Work Phone: [facility] 11-12-2023 13:41-0500 Heart rate 85 /min Quiana Moncadagatitoviola DENIA Forrester CNP Work Phone: [facility] 08-17-2023 13:12-0500 Diastolic blood pressure 67 mm[Hg] Dangelo Landworth DO Work Phone: [facility] 08-17-2023 13:12-0500 Heart rate 84 /min Dionicion [place] DO Work Phone: [facility] 08-17-2023 13:12-0500 Respiratory rate 18 /min Gurinderlyn [place] DO Work Phone: [facility] 08-17-2023 13:12-0500 SaO2% (BldA) [Mass fraction] 98 % Dionicion [place] DO Work Phone: [facility] 08-17-2023 13:12-0500 Systolic blood pressure 94 mm[Hg] Dionicion [place] DO Work Phone: [facility] 08-17-2023 09:13-0500 Body height 177.8 cm Gurinderlyn [place] DO Work Phone: [facility] 08-17-2023 09:13-0500 Body mass index (BMI) [Ratio] 28.7 kg/m2 Gurinderlyn [place] DO Work Phone: [facility] 08-17-2023 09:13-0500 Body weight 90.72 kg Gurinderlyn [place] DO Work Phone: [facility] 08-17-2023 08:50-0500 Body temperature 99 [degF] Gurinderlyn Ozzie DO Work Phone: [facility] 05-01-2023 20:36-0400 Diastolic blood pressure 85 mm[Hg] Jese Frank MD Work Phone: [facility] 05-01-2023 20:36-0400 Heart rate 74 /min Jese Frank MD Work Phone: [facility] 05-01-2023 20:36-0400 Respiratory rate 20 /min Jese Frank MD Work Phone: [facility] 05-01-2023 20:36-0400 SaO2% (BldA) [Mass fraction] 95 % Jese Frank MD Work Phone: [facility] 05-01-2023 20:36-0400 Systolic blood pressure 135 mm[Hg] Jese Frank MD Work Phone: [facility] 05-01-2023 20:08-0400 Body height 177.8 cm Jese Frank MD Work Phone: [facility] 05-01-2023 20:08-0400 Body mass index (BMI) [Ratio] 28.7 kg/m2 Jese Frank MD Work Phone: [facility] 05-01-2023 20:08-0400 Body temperature 98.2 [degF] Jese Frank MD Work Phone: [facility] 05-01-2023 20:08-0400 Body weight 90.72 kg Jese Frank MD Work Phone: [facility] 12-25-2021 15:50-0400 Body height 177.8 cm Rudy Painter MD Work Phone: [facility] 12-25-2021 15:50-0400 Body weight 99.79 kg Rudy Painter MD Work Phone: [facility] 12-25-2021 15:50-0400 Diastolic blood pressure 72 mm[Hg] Rudy Painter MD Work Phone: [facility] 12-25-2021 15:50-0400 Heart rate 70 /min Rudy Painter MD Work Phone: [facility] 12-25-2021 15:50-0400 Systolic blood pressure 130 mm[Hg] Rudy Painter MD Work Phone: [facility] 09-15-2021 11:20-0500 Body temperature 97.59 [degF] Cindy Patel MD Work Phone: [facility] 09-15-2021 11:20-0500 Diastolic blood pressure 83 mm[Hg] Cindy Patel MD Work Phone: [facility] 09-15-2021 11:20-0500 Heart rate 85 /min Cindy Patel MD Work Phone: [facility] 09-15-2021 11:20-0500 Respiratory rate 20 /min Cindy Patel MD Work Phone: [facility] 09-15-2021 11:20-0500 SaO2% (BldA) [Mass fraction] 98 % Cindy Patel MD Work Phone: [facility] 09-15-2021 11:20-0500 Systolic blood pressure 144 mm[Hg] Cindy Patel MD Work Phone: [facility] 09-15-2021 09:19-0500 Body height 177.8 cm Cindy Patel MD Work Phone: [facility] 09-15-2021 09:19-0500 Body mass index (BMI) [Ratio] 30.05 kg/m2 Cindy Patel MD Work Phone: [facility] 09-15-2021 09:19-0500 Body weight 94.98 kg Cindy Patel MD Work Phone: [facility] 10-27-2019 20:02-0500 Body temperature 97.2 [degF] Callie Nieves DO Work Phone: [facility] Work Phone: 10-27-2019 20:02-0500 Diastolic blood pressure 77 mm[Hg] Callie Nieves DO Work Phone: [facility] Work Phone: 10-27-2019 20:02-0500 Heart rate 107 /min Callie Nieves DO Work Phone: [facility] Work Phone: 10-27-2019 20:02-0500 Respiratory rate 16 /min Callie Nieves DO Work Phone: [facility] Work Phone: 10-27-2019 20:02-0500 SaO2% (BldA) [Mass fraction] 96 % Callie Damir DO Work Phone: [facility] Work Phone: 10-27-2019 20:02-0500 Systolic blood pressure 112 mm[Hg] Callie Damir DO Work Phone: [facility] Work Phone: 10-27-2019 14:10-0500 Body mass index (BMI) [Ratio] 27.08 kg/m2 Callie Damir DO Work Phone: [facility] Work Phone: 10-27-2019 14:10-0500 Body weight 85.6 kg Callie Damir DO Work Phone: [facility] Work Phone: 10-19-2019 12:45-0500 Body height 177.8 cm Callie Damir DO Work Phone: [facility] Work Phone: Encounters Encounter Date Encounter Type Care Provider Facility Start: 05-03-2025 ambulatory Jayesh ALBA Faci lity:[facility] Start: [facility]-30-2025 [facility] Start: 04-26-2025 ambulatory [facility] PARTH Facility:[facility] Start: 04-25-2025 End: 04-25-2025 Telephone encounter Yasemin Lucas 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 REPAIRER - 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 Work Phone: [facility] Comment on above: Appointment Start: 04-25-2025 ambulatory Jayesh ALBA Faci lity:[facility] Start: 04-24-2025 [facility] Start: 04-23-2025 ambulatory Jayesh ALBA Faci lity:[facility] Start: 04-20-2025 ambulatory Jayesh ALBA Faci lity:[facility] Start: 04-19-2025 [facility] Start: 04-18-2025 ambulatory Jayesh ALBA Faci lity:[facility] Start: 04-17-2025 End: 04-17-2025 Emergency department patient visit Keiry Solares MD Work Phone: [facility] ED Comment on above: Supratherapeutic INR (Primary Dx); Necrosis (HCC) Start: 04-17-2025 ambulatory [facility] jena ALBA Facility:[facility] Start: 04-16-2025 ambulatory [facility] jena ALBA Facility:[facility] Start: 04-12-2025 End: 04-12-2025 Subsequent hospital visit by physician [facility] Exam Room [address] Comment on above: Hemoptysis Start: 04-12-2025 End: 04-12-2025 ambulatory [facility] Start: 04-11-2025 End: 04-11-2025 Telephone encounter Piedad Genao DPM Work Phone: [facility] Orthopedics and Sports Medicine [facility] Comment on above: Appointment Start: 04-09-2025 End: 04-09-2025 Emergency department patient visit LEILANI TRONCOSO [facility] ED Comment on above: ESRD on hemodialysis (CMS/HCC) (HCC) (Primary Dx); Contusion of dorsum of right hand Start: 04-09-2025 [facility] Facility[facility] Start: 04-05-2025 End: 04-05-2025 Telephone encounter Sophia Forrester CNP Work Phone: [facility] Neuroscience [facility] Comment on above: Cancelled Appointmen t Start: 04-05-2025 End: 04-05-2025 Emergency department patient visit Dieter Villegas MD Work Phone: [facility] ED Comment on above: Tachycardia (Primary Dx); Dialysis patient (HCC) Start: 04-05-2025 [facility] Start: 04-02-2025 [facility] Start: 03-29-2025 ambulatory [facility] PARTH Facility:[facility] Start: 03-26-2025 End: 03-28-2025 Telephone encounter Sophia Forrester CNP Work Phone: [facility] Comment on above: Appointment Start: 03-26-2025 ambulatory Jayesh ALBA Faci lity:[facility] Start: 03-22-2025 [facility] Start: 03-22-2025 Registered Referred Kayley ortiz MD -[employer] Start: 03-13-2025 End: 03-21-2025 Evaluation and management of inpatient Keiry Solares MD Work Phone: [facility] Cardiac Progressive Care Unit PCU 5W Comment on above: SOB (shortness of br eath) (Primary Dx); 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 Comment on above: Tracheostomy depende nce (HCC) (Primary Dx); Tracheostomy complication, unspecified complication type (HCC); Acute respiratory failure with hypoxia (HCC) [J96.01] Start: 03-08-2025 Registered Referred Kayley ortiz MD -[facility] Start: 02-23-2025 End: 02-23-2025 Telephone encounter Elly Jett MD Work Phone: [facility] Critical Care Comment on above: Appointment Start: 02-21-2025 End: 02-25-2025 Telephone encounter Hussain Quintana MD Work Phone: [facility] Infectious Disease Mitzy Sinha Comment on above: Other Start: 02-20-2025 End: 03-05-2025 Evaluation and management of inpatient Palak Thurman DO Work Phone: [facility] Trauma Neuro Progressive Care Unit PCU 3W Start: 02-20-2025 End: 02-20-2025 ambulatory Kayley Melendrez MD [facility] Work Phone: Start: 02-20-2025 End: 02-20-2025 Departed Referred Kayley Melendrez MD -[facility] Start: 02-20-2025 Registered Referred Kayley ortiz MD -[facility] Start: 02-20-2025 End: 02-20-2025 ambulatory Kayley ALBA Facility:[facility] Start: 02-15-2025 End: 02-15-2025 ambulatory Kayley Melendrez MD [facility] Work Phone: Start: 02-15-2025 End: 02-15-2025 Departed Referred Kayley Melendrez MD -[employer] Start: 02-15-2025 Registered Referred Kayley ortiz MD -[employer] Start: 02-14-2025 End: 02-14-2025 Office outpatient visit 25 minutes Mikala Day PA-C Work Phone: [facility] Infectious Disease Mitzy Sinha Comment on above: Sacral osteomyelitis (CMS/HCC) (HCC) (Primary Dx); ESRD on hemodialysis (CMS/HCC) (HCC); Ischemic ulcer of toe of left foot, 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); Decubitus ulcer of sacral region, unstageable (HCC); 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 Start: 02-14-2025 End: 02-15-2025 [facility] Start: 02-13-2025 ambulatory Kayley ALBA Facility:[facility] Start: 02-13-2025 Registered Referred Kayley ortiz MD -[employer] Start: 02-12-2025 End: 02-12-2025 ambulatory Kayley Melendrez MD -[employer] Start: 02-12-2025 End: 02-12-2025 Departed Referred Kayley Melendrez MD -[employer] Start: 02-12-2025 Registered Referred Kayley ortiz MD -[employer] Start: 02-12-2025 End: 02-12-2025 ambulatory Kayley ALBA Facility:[facility] Start: 02-08-2025 End: 02-08-2025 ambulatory Kayley Melendrez MD -[employer] Start: 02-08-2025 End: 02-08-2025 Departed Referred Kayley Melendrez MD -[employer] Start: 02-08-2025 Registered Referred Kayley ortiz MD -[employer] Start: 02-07-2025 End: 02-08-2025 ambulatory Kayley ALBA [facility] Work Phone: Start: 02-07-2025 End: 02-07-2025 Departed Referred Jayesh Stubbs -[employer] Start: 02-07-2025 Registered Referred Jayesh Forrester [employer] Start: 02-07-2025 End: 02-07-2025 ambulatory Jayesh ALBA Facility:[facility] Start: 02-05-2025 End: 02-05-2025 ambulatory Kayley Melendrez MD [facility] Work Phone: Start: 02-05-2025 End: 02-05-2025 Departed [facility]erred [facility] [employer] Start: 02-05-2025 End: 02-05-2025 ambulatory Kayley ALBA Facility:[facility] Start: 02-02-2025 End: 02-02-2025 Anticoagulant drug monitoring Adalberto SanchezD [facility] Comment on above: S/P AVR (Primary Dx) Start: 01-29-2025 End: 02-05-2025 Telephone encounter Adina Montenegro LEISA [facility] Anticoagulatio n Management Service Comment on above: Anticoagulation Start: 01-19-2025 End: 02-01-2025 Evaluation and management of inpatient Lazaro Rojo MD Work Phone: [facility] Cardiac Vascular Progressive Care Unit PCC 1C Start: 01-18-2025 End: 01-18-2025 ambulatory Jefferson Nathan MD Work Phone: [facility] Sleep Medicine [facility] Comment on above: Acute respiratory fa ilure with hypoxia (HCC) [J96.01] (Primary Dx); RSV (acute bronchiolitis due to respiratory syncytial virus); Tracheostomy dependence (HCC); Leg DVT (deep venous thromboembolism), acute, left (HCC); Pulmonary embolism, unspecified chronicity, unspecified pulmonary embolism type, unspecified whether acute cor pulmonale present (HCC); S/P AVR Start: 01-17-2025 End: 01-17-2025 ambulatory Jefferson Nathan MD Work Phone: [facility] Pulmonary and Sleep Medicine 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 Comment on above: RSV [...] type Start: 01-14-2025 End: 01-14-2025 ambulatory Hany Berrois MD Work Phone: [facility] Pulmonary and Sleep Medicine [facility] Comment on above: Acute respiratory fa ilure with hypoxia (HCC) [J96.01] (Primary Dx); 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]; Pulmonary embolism, other, unspecified chronicity, unspecified whether acute cor pulmonale present (HCC) Start: 01-12-2025 End: 01-12-2025 ambulatory Mikala Day PA-C Work Phone: 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 Infectious Dis Comment on above: [...] 01-08-2025 ambulatory Mikala Day PA-C Work Phone: [facility] Infectious Dis Comment on above: [...] Start: 01-05-2025 End: 01-05-2025 ambulatory Sydni Husain ELECTRICAL APPLIANCE REPAIRER - ASSOCIATE Work Phone: [facility] Infectious Disease - [place] Comment on above: Pneumonia of both marleny ngs due to methicillin susceptible Staphylococcus aureus (MSSA), unspecified part of lung (HCC) (Primary Dx); Acute hypoxic respiratory failure (HCC); Tracheostomy dependence (HCC); ESRD on hemodialysis (CMS/HCC) (HCC); Sacral osteomyelitis (CMS/HCC) (HCC); Decubitus ulcer of sacral region, unstageable (HCC) Start: 01-05-2025 End: 01-05-2025 Patient encounter procedure Chandrika Allen ELECTRICAL APPLIANCE REPAIRER - ASSOCIATE Work Phone: [facility] [place] Comment on above: Acute respiratory fa ilure with hypoxia (HCC) [J96.01] (Primary Dx); 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]; LRTI (lower respiratory tract infection) [J22] Start: 01-04-2025 End: 01-04-2025 Admission to same day surgery center Sydni Husain ELECTRICAL APPLIANCE REPAIRER - ASSOCIATE Work Phone: [facility] Infectious Disease - [place] [...] Start: 01-04-2025 End: 01-04-2025 ambulatory Sydni Husain ELECTRICAL APPLIANCE REPAIRER - [employer] Work Phone: [facility] Infectious Disease - [place] Start: 01-04-2025 End: 01-04-2025 [facility]day 25 minutes Angeles Blackburn DO Work Phone: [facility] [place] Comment on above: 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] (Primary Dx); Acute respiratory failure with hypoxia (HCC) [J96.01] Start: 01-03-2025 End: 01-03-2025 ambulatory Josephine Cash ELECTRICAL APPLIANCE REPAIRER - [employer] [employer] Work Phone: [facility] Infectious Disease - [place] Comment on above: Sacral osteomyelitis (CMS/HCC) (HCC) (Primary Dx); Decubitus ulcer of sacral region, unstageable (HCC); Pneumonia of both lungs due to methicillin susceptible Staphylococcus aureus (MSSA), unspecified part of lung (HCC); Leukocytosis, unspecified type; ESRD on hemodialysis (CMS/HCC) (HCC); S/P AVR Start: 01-03-2025 End: 01-03-2025 [facility]day 25 minutes Angeles Blackburn DO Work Phone: [facility] Lung Nodule [facility] [place] Comment on above: 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] (Primary Dx); Acute respiratory failure with hypoxia (HCC) [J96.01] Start: 01-02-2025 End: 01-02-2025 ambulatory Josephine Cash ELECTRICAL APPLIANCE REPAIRER - [place] [employer] Work Phone: [facility] Infectious Disease - [place] Comment on above: Leukocytosis, unspec ified type (Primary Dx); Pneumonia of both lungs due to methicillin susceptible Staphylococcus aureus (MSSA), unspecified part of lung (HCC); Acute hypoxic respiratory failure (HCC); Decubitus ulcer of sacral region, unstageable (HCC); ESRD on hemodialysis (CMS/HCC) (HCC); S/P AVR Start: 01-02-2025 End: 01-02-2025 [facility]day 25 minutes Angeles Blackburn DO Work Phone: [facility] Lung Nodule [facility] Comment on above: 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] (Primary Dx); Acute respiratory failure with hypoxia (HCC) [J96.01] Start: 01-01-2025 End: 01-01-2025 ambulatory Ochoa Guido MD Work Phone: [facility] Cardiology [facility] Comment on above: Persistent atrial fi brillation (HCC) (Primary Dx) Leukocytosis, unspec ified type (Primary Dx); Pneumonia of both lungs due to methicillin susceptible Staphylococcus aureus (MSSA), unspecified part of lung (HCC); Acute hypoxic respiratory failure (HCC); Tracheostomy dependence (HCC); Decubitus ulcer of sacral region, unstageable (HCC); ESRD on hemodialysis (CMS/HCC) (HCC); S/P AVR Start: 01-01-2025 End: 01-01-2025 [facility]day 25 minutes Angeles Bere DO Work Phone: [facility] Lung [facility] [place] Comment on above: 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 Infectious Dis Comment on above: Leukocytosis, unspec ified type (Primary Dx); Acute hypoxic respiratory failure (HCC); Tracheostomy dependence (HCC); S/P AVR; ESRD on hemodialysis (CMS/HCC) (HCC); Decubitus ulcer of sacral region, unstageable (HCC) Start: 12-28-2024 End: 12-28-2024 ambulatory Mercedes Hinton ELECTRICAL APPLIANCE REPAIRER - ASSOCIATE Work Phone: [facility] Lung N[facility]ule [facility] [place] Start: 12-28-2024 End: 12-28-2024 Patient encounter procedure Mercedes Hinton ELECTRICAL APPLIANCE REPAIRER - ASSOCIATE Work Phone: [facility] Lung Nodule [facility] Comment on above: Acute respiratory fa ilure with hypoxia (HCC) [J96.01] (Primary Dx); 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]; Tracheostomy care (HCC) [Z43.0]; History of pulmonary embolus (PE) [Z86.711] Start: 12-27-2024 End: 12-27-2024 ambulatory Mercedes Hinton ELECTRICAL APPLIANCE REPAIRER - ASSOCIATE Work Phone: [facility] Start: 12-27-2024 End: 12-27-2024 Patient encounter procedure Mercedes Hinton ELECTRICAL APPLIANCE REPAIRER - ASSOCIATE Work Phone: [facility] Comment on above: Acute respiratory fa ilure with hypoxia (HCC) [J96.01] (Primary Dx); 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]; Tracheostomy care (HCC) [Z43.0]; History of pulmonary embolus (PE) [Z86.711] Start: 12-26-2024 End: 12-26-2024 ambulatory Mercedes Hinton ELECTRICAL APPLIANCE REPAIRER - ASSOCIATE Work Phone: [facility] Start: 12-26-2024 End: 12-26-2024 Patient encounter procedure Mercedes Hinton ELECTRICAL APPLIANCE REPAIRER - ASSOCIATE Work Phone: [facility] Comment on above: Acute respiratory fa ilure with hypoxia (HCC) [J96.01] (Primary Dx); 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]; Tracheostomy care (HCC) [Z43.0]; History of pulmonary embolus (PE) [Z86.711] Start: 12-22-2024 End: 12-22-2024 ambulatory Chandrika Allen ELECTRICAL APPLIANCE REPAIRER - ASSOCIATE Work Phone: [facility] Start: 12-22-2024 End: 12-22-2024 Patient encounter procedure Chandrika Allen ELECTRICAL APPLIANCE REPAIRER - ASSOCIATE Work Phone: [facility] Comment on above: 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] (Primary Dx); Acute respiratory failure with hypoxia (HCC) [J96.01]; LRTI (lower respiratory tract infection) [J22] Start: 12-21-2024 End: 12-21-2024 ambulatory Chandrika ERomulo Allen ELECTRICAL APPLIANCE REPAIRER - ASSOCIATE Work Phone: [facility] Lung [facility] Start: 12-21-2024 End: 12-21-2024 Patient encounter procedure Chandrika BorjaRomulo Allen ELECTRICAL APPLIANCE REPAIRER - ASSOCIATE Work Phone: [facility] Comment on above: 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] (Primary Dx); Acute respiratory failure with hypoxia (HCC) [J96.01]; LRTI (lower respiratory tract infection) [J22] Start: 12-20-2024 End: 12-20-2024 ambulatory Chandrika ERomulo Allen ELECTRICAL APPLIANCE REPAIRER - ASSOCIATE Work Phone: [facility] Lung [facility] Start: 12-20-2024 End: 12-20-2024 Patient encounter procedure Chandrika BorjaRomulo Alejandro ELECTRICAL APPLIANCE REPAIRER - ASSOCIATE Work Phone: [facility] Comment on above: 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] (Primary Dx); Acute respiratory failure with hypoxia (HCC) [J96.01]; LRTI (lower respiratory tract infection) [J22] Start: 12-19-2024 End: 12-19-2024 ambulatory Chandrika BorjaRomulo Allen ELECTRICAL APPLIANCE REPAIRER - ASSOCIATE Work Phone: [facility] Lung [facility] Start: 12-19-2024 End: 12-19-2024 Patient encounter procedure Chandrika BorjaRomulo Allen ELECTRICAL APPLIANCE REPAIRER - ASSOCIATE Work Phone: [facility] Comment on above: 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] (Primary Dx); Acute respiratory failure with hypoxia (HCC) [J96.01]; LRTI (lower respiratory tract infection) [J22] Start: 12-18-2024 End: 12-18-2024 Patient encounter procedure Chandrika Allen ELECTRICAL APPLIANCE REPAIRER - ASSOCIATE Work Phone: [facility] Lung Nodule [facility] Comment on above: Acute respiratory fa ilure with hypoxia (HCC) [J96.01] (Primary Dx); 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]; LRTI (lower respiratory tract infection) [J22] Start: 12-18-2024 End: 12-18-2024 ambulatory Chandrika Allen ELECTRICAL APPLIANCE REPAIRER - ASSOCIATE Work Phone: [facility] Lung Nodule [facility] Start: 12-15-2024 End: 12-15-2024 ambulatory Jefferson Nathan MD Work Phone: [facility] Lung [facility] Start: 12-15-2024 End: 12-15-2024 Patient encounter procedure Jefferson Nathan MD Work Phone: [facility] Comment on above: Acute respiratory fa ilure with hypoxia (HCC) (Primary Dx); Tracheostomy dependence (HCC); RSV (acute bronchiolitis due to respiratory syncytial virus); Leg DVT (deep venous thromboembolism), acute, left ([facility]); Nonrheumatic aortic valve stenosis Start: 12-14-2024 End: 12-14-2024 ambulatory Jefferson Nathan MD Work Phone: [facility] Sleep [facility] Comment on above: Acute respiratory fa ilure with hypoxia (HCC) (Primary Dx); Tracheostomy dependence (HCC); RSV (acute bronchiolitis due to respiratory syncytial virus); ESRD on hemodialysis ([facility]/HCC) (HCC); Pulmonary embolism, other, unspecified chronicity, unspecified whether acute cor pulmonale present ([facility]); Nonrheumatic aortic valve stenosis Start: 12-13-2024 End: 12-13-2024 ambulatory Jefferson Nathan MD Work Phone: [facility] Pulmonary and Sleep Medicine [facility] Comment on above: Acute respiratory fa ilure with hypoxia (HCC) (Primary Dx); Tracheostomy dependence (HCC); RSV (acute bronchiolitis due to respiratory syncytial virus); Paroxysmal A-fib (CMS/HCC) (HCC); Nonrheumatic aortic valve stenosis Start: 12-12-2024 End: 12-12-2024 ambulatory Jefferson Nathan MD Work Phone: [facility] Pulmonary and Sleep Medicine [facility] Comment on above: RSV (acute bronchiol itis due to respiratory syncytial virus) (Primary Dx); Tracheostomy dependence (HCC); Acute respiratory failure with hypoxia (HCC); Paroxysmal A-fib (CMS/HCC) (HCC); Peritonitis due to fungus (HCC) Start: 12-11-2024 End: 12-11-2024 ambulatory Jefferson Nathan MD Work Phone: [facility] Pulmonary and Sleep Medicine 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); Anemia, unspecified type; History of abdominal surgery Start: 12-07-2024 End: 12-07-2024 ambulatory Sydni Husain ELECTRICAL APPLIANCE REPAIRER - ASSOCIATE Work Phone: [facility] Infectious Disease - [place] Start: 12-07-2024 End: 03-23-2025 [facility]day 25 minutes Vincent Meek MD Work Phone: [facility] Lung Nodule [facility] [place] Comment on above: Acute respiratory fa ilure with hypoxia (HCC) (Primary Dx); Ventilator dependent (HCC); Tracheostomy dependence (HCC); Pulmonary embolism, other, unspecified chronicity, unspecified whether acute cor pulmonale present (HCC); S/P AVR; ESRD on hemodialysis (CMS/HCC) (HCC) Start: 12-06-2024 End: 12-06-2024 Admission to same day surgery center Sydni Husain APRN - ASSOCIATE Work Phone: [facility] Infectious Disease [facility] Comment on above: Acute respiratory fa ilure with hypoxia (HCC) (Primary Dx); Tracheostomy dependence (HCC); S/P AVR; Peritonitis due to fungus (HCC); ESRD on hemodialysis (CMS/HCC) (HCC); 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, 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); History of abdominal surgery Start: 12-06-2024 End: 12-06-2024 ambulatory Sydni Husain APRN - ASSOCIATE Work Phone: [facility] Infectious Disease - [place] Start: 12-06-2024 End: 03-23-2025 [facility]day 25 minutes Vincent Meek MD Work Phone: [facility] Lung Nodule [facility] [place] Comment on above: Acute respiratory fa ilure with hypoxia (HCC) (Primary Dx); Ventilator dependent (HCC); Tracheostomy dependence (HCC); Pulmonary embolism, other, unspecified chronicity, unspecified whether acute cor pulmonale present (HCC); S/P AVR; ESRD on hemodialysis (CMS/HCC) (HCC) Start: 12-05-2024 End: 03-23-2025 [facility]/day 35 minutes Vincent Meek MD Work Phone: [facility] Lung Nodule [facility] [place] Comment on above: Acute respiratory fa ilure with hypoxia (HCC) (Primary Dx); Tracheostomy dependence (HCC); Ventilator dependent (HCC); Pulmonary embolism, other, unspecified chronicity, unspecified whether acute cor pulmonale present (HCC); S/P AVR; ESRD on hemodialysis (CMS/HCC) (HCC) Start: 12-04-2024 End: 12-04-2024 Admission to same day surgery center Sydni Watson [place] ELECTRICAL APPLIANCE REPAIRER - ASSOCIATE Work Phone: [facility] Infectious Disease - [place] Comment on above: Acute respiratory fa ilure with hypoxia (HCC) (Primary Dx); Tracheostomy dependence (HCC); S/P AVR; Peritonitis due to fungus (HCC); ESRD on hemodialysis (CMS/HCC) (HCC); 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, 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); History of abdominal surgery Start: 12-04-2024 End: 12-04-2024 ambulatory Sydni Watson [place] ELECTRICAL APPLIANCE REPAIRER - ASSOCIATE Work Phone: [facility] Infectious Disease - [place] Comment on above: Atypical atrial flut ter (HCC) (Primary Dx) Start: 12-01-2024 End: 12-01-2024 Admission to same day surgery center Sydni Watson [place] ELECTRICAL APPLIANCE REPAIRER - ASSOCIATE Work Phone: [facility] Infectious Disease - [place] [...] 12-01-2024 ambulatory Jefferson Nathan MD Work Phone: [facility] Lung Nodule [facility] Comment on above: Atypical atrial flut ter (HCC) (Primary Dx) Start: 12-01-2024 End: 12-01-2024 Patient encounter procedure Jefferson Nathan MD Work Phone: [facility] Lung Nodule [facility] Comment on above: Acute respiratory fa ilure with hypoxia (HCC) (Primary Dx); Tracheostomy dependence (HCC); Ventilator dependent (HCC); Pulmonary embolism, other, unspecified chronicity, unspecified whether acute cor pulmonale present (HCC); S/P AVR Start: 11-30-2024 End: 11-30-2024 Admission to same day surgery center Sydniartem Husain ELECTRICAL APPLIANCE REPAIRER - ASSOCIATE Work Phone: [facility] Infectious Disease - [place] [...] surgery Start: 11-30-2024 End: 11-30-2024 ambulatory Sydni C [place] ELECTRICAL APPLIANCE REPAIRER - ASSOCIATE Work Phone: [facility] Infectious Disease Mit[place] Sinha Comment [...] same day surgery center Sydni Watson [place] ELECTRICAL APPLIANCE REPAIRER - ASSOCIATE Work Phone: [facility] Infectious Disease [facility] Sinha Comment on above: Peritonitis due to f ungus (HCC) (Primary Dx); History of abdominal surgery; S/P AVR; 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, 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); Leg DVT (deep venous thromboembolism), acute, left (HCC); Anemia, unspecified type Start: 11-29-2024 End: 11-30-2024 ambulatory Jefferson Nathan MD Work Phone: [facility] Pulmonary and Sleep Medicine [...] Telephone encounter Jefferson Nathan MD Work Phone: [facility] Pulmonary and Sleep Medicine [place] Comment on above: Advice Only Start: 10-22-2024 End: 10-22-20[facility] Start: 10-21-2024 End: 10-25-[facility] Start: 10-16-2024 End: 10-16-2024 Telephone encounter Enid Dumont ELECTRICAL APPLIANCE REPAIRER - ASSOCIATE Work Phone: [facility] Gastroenterology - [place] Comment on above: Care Coordination Start: 10-13-2024 End: 10-13-2024 Telephone encounter Lan Carpenter PA-C Work Phone: [facility] Start: 10-12-2024 End: 10-12-2024 Evaluation and management of inpatient Vincent Wilson MD Work Phone: [facility] OR Start: 10-03-2024 End: 10-03-2024 [facility] Start: 10-03-2024 End: 10-03-2024 Subsequent hospital visit by physician [facility] Exam Room [address] [facility] Comment on above: Arrived Start: 10-03-2024 End: 11-28-2024 Evaluation and management of inpatient LUCIANO MONTEMAYOR [facility] Start: 08-28-2024 End: 08-28-2024 ambulatory DARYN LOOMIS [facility] Start: 08-28-2024 End: 08-28-2024 Office outpatient visit 25 minutes Jr Shah MD Work Phone: [facility] Cardiology - [place] [...] Telephone encounter Jr Shah MD Work Phone: [facility] Central Scheduling Comment on above: unable to contact pa tient unable to contact pa jadon to schedule Start: 11-12-2023 End: 11-12-2023 Office outpatient visit 25 minutes Quiana Contreras ELECTRICAL APPLIANCE REPAIRER - ASSOCIATE Work Phone: [facility] Cardiology Comment on above: Nonrheumatic aortic valve stenosis (Primary Dx); Paroxysmal A-fib (CMS/HCC) (HCC); Primary hypertension; Calcification of abdominal aorta (HCC); Tobacco abuse; ESRD on hemodialysis (CMS/HCC) (HCC) Start: 10-14-2023 Telephone encounter Sasha Taryn weeks ELECTRICAL APPLIANCE REPAIRER - ASSOCIATE Work Phone: [facility] Cardiology Comment on above: Cancelled Appointmen t Start: 09-07-2023 Transcribe Orders Fransisco toro ELECTRICAL APPLIANCE REPAIRER Work Phone: [facility] Central Scheduling Comment on above: Personal history of nicotine dependence (Primary Dx); Nicotine dependence, cigarettes, uncomplicated Start: 08-18-2023 Telephone encounter Quiana forman ELECTRICAL APPLIANCE REPAIRER - ASSOCIATE Work Phone: [facility] Cardiology Start: 08-16-2023 End: 08-17-2023 Evaluation and management of inpatient Dangelo Horne DO Work Phone: [facility] ED Comment on above: New onset a-fib (CMS /HCC) (HCC) (Primary Dx); Atrial fibrillation, persistent (HCC) Start: 05-01-2023 End: 05-01-2023 Emergency department patient visit Jese Frank MD Work Phone: [facility] ED Comment on above: Skin sore (Primary D x); ESRD (end stage renal disease) on dialysis (HCC) Start: 12-30-2021 Telephone encounter Giovani mckee MD Work Phone: [facility] [place] Comment on above: Procedure please advise Start: 12-29-2021 ambulatory Rudy Painter MD Work Phone: Ambulatory Surgery Start: 12-29-2021 Telephone encounter [facility]o PA-C [facility] Comment on above: cecilia carlson Start: 12-25-2021 End: 12-25-2021 Patient encounter procedure [facility] Comment on above: Acute blood loss ane ruth (Primary Dx); Rectal bleeding Start: 09-15-2021 End: 09-15-2021 Subsequent hospital visit by physician Cindy Patel MD Work Phone: [facility] Cath & IR Lab Start: 10-17-2020 End: 10-17-2020 Subsequent hospital visit by physician Cindy Patel Work Phone: [facility] [place] [facility] Start: 03-13-2020 End: 03-13-2020 Subsequent hospital visit by physician Lab [place] Acc LAB EKG [facility] Comment on above: Preoperative testing [Z01.818] Start: 10-19-2019 End: 10-27-2019 Evaluation and management of inpatient Callie Nieves DO Work Phone: [facility] MED SURG Comment on above: Acute kidney injury (HCC) (Primary Dx); Uncontrolled hypertension; Normocytic anemia; Angioedema, initial encounter; Hyperkalemia; Metabolic acidosis; Rectal bleeding Procedures Date Procedure Procedure Detail Performing Clinician Start: 04-17-2025 Comprehensive metabo lic panel Keiry Solares MD Work Phone: Start: 04-09-2025 Radex hand minimum 3 views Yari Georgina Goodman PA-C Work Phone: Start: 04-09-2025 Basic metabolic pane l calcium total Algaeon PA-C Work Phone: Start: 04-05-2025 Assay of troponin quantitative Barbara Mckeon PA-C Work Phone: Start: 04-05-2025 Radiologic exam ches t 2 views Barbara JO-C Work Phone: Start: 04-05-2025 Basic metabolic pane [...] Ct thorax w/o contra st material Keiry Soalres MD Work Phone: Start: 03-13-2025 End: 03-13-2025 [...] Start: 02-26-2025 Assay of troponin quantitative Rudolph Bainsamirahmatt DO Work Phone: Start: 02-26-2025 Assay of troponin quantitative Rudolph Centeno Fred DO Work Phone: Start: 02-25-2025 Prothrombin [...] on above: Performed By: #### L [id number] ####Phys Assistant: DOMENICA JARA ([phone])[facility] ([facility])[address] [place] [address] Start: 02-21-2025 C-reactive protein Karena Jett MD Work Phone: Start: 02-21-2025 Comprehensive metabo lic panel Bettye Pierre MD Work Phone: Start: 02-20-2025 Ct angiography chest w/contrast/noncontrast Mejgon Z Cuca DO Work Phone: Start: 02-20-2025 Basic metabolic pane l calcium total Mejgon Z Cuca DO Work Phone: Start: 02-14-2025 Follow-up visit Follow-up MIKALA DAY Start: 02-01-2025 Blood count hematocrit Chantell Hill DO Work Phone: Start: 02-01-2025 Comprehensive metabo [...] Start: 01-25-2025 Compatibility each u nit electronic [employer] Canadas DO Start: 01-25-2025 End: 01-25-2025 TRANSFUSE RED [...] t single view Sangeeta Reyes DO Start: 04-30-2025 Compatibility each u nit electronic Noman Owens [...] 01-22-2025 TRANSFUSE FRESH FROZEN PLASMA [facility] DO Work Phone: Start: 01-22-2025 Glucose quantitative [...] 01-22-2025 Fibrin dgradj products d-dimer quantitative Bruce Mudrakola MD Work Phone: Start: 01-21-2025 Glucose quantitative blood xcpt reagent strip Quiana Jeffery DO Work Phone: Start: 01-21-2025 Prothrombin time Bob Watson MD Work Phone: Start: 01-21-2025 Glucose quantitative blood xcpt reagent strip Quiana Jeffery DO Work Phone: Start: 01-21-2025 End: 01-21-2025 ESOPHAGOGASTRODUODENOSCOP Y, DIAGNOSTIC Mitchellu Parth VASQUEZ Work Phone: Start: 01-21-2025 Blood count complete automated Crystal Román Flores ELECTRICAL APPLIANCE REPAIRER - ASSOCIATE Work Phone: Start: 01-21-2025 Glucose quantitative blood [...] History of abd ominal surgery Sydni Husain ELECTRICAL APPLIANCE REPAIRER - ASSOCIATE Work Phone: Start: 10-12-2024 Insj non-tunneled ce ntral venous cath age 5 yr/> Rudolph German MANAGER EMS Start: 10-12-2024 TX AN CENTRAL LINE T RIPLE LUMEN Rudolph German MANAGER EMS Start: 10-12-2024 TX AN ELECTIVE ENDOTRACHEAL AIRWAY Rudolph German MANAGER EMS Start: 10-12-2024 Us vasc access sits vsl patency ndl entry Rudolph German MANAGER EMS Start: 10-12-2024 ANESTHESIA ARTERIAL LINE PLACEMENT Rudolph Greman MANAGER EMS Start: 10-03-2024 Ct head/brain w/o contrast material [...] vaccination due to patient refusal Sasha Lemons ELECTRICAL APPLIANCE REPAIRER - ASSOCIATE Work Phone: Start: 08-17-2023 Echo tthrc r-t 2d w/wom-mode compl spec&colr d Earlene Irving MD Work Phone: Start: 08-17-2023 Thyrotropin [Units/volume] in Serum or Plasma [facility] Work Phone: Start: 08-17-2023 Basic metabolic pane l calcium total Earlene Irving MD Work Phone: Start: 08-16-2023 End: 08-16-2023 Basic metabolic panel calcium total Sha Chandana Roberta [employer] Work Phone: Start: 08-16-2023 Radiologic exam ches t single view [employer] Chandana [employer] Work Phone: Start: 08-16-2023 Ecg routine ecg w/le ast 12 lds i&r only Dangelo Horne DO Work Phone: Start: 10-17-2020 Special treatments a nd procedures Cindy Patel Work Phone: Start: 03-13-2020 Ecg routine ecg w/le ast 12 lds trcg only w/o i&r [facility] Provider Start: 03-13-2020 BASIC METABOLIC PNL Tati farooq (Heel Coverer Cargo Services Coordinator) Sharma Work Phone: Start: 03-13-2020 CBC Darya (A prn Cargo Services Coordinator) Sharma Work Phone: Start: 03-13-2020 MDRD GFR Darya (A prn Cargo Services Coordinator) Sharma Work Phone: Start: 03-13-2020 PROTHROMBIN TIME/PT Tati farooq (Heel Coverer Cargo Services Coordinator) Sharma Work Phone: Start: 10-27-2019 Basic metabolic pane l calcium total Darell Myron DO Work Phone: Start: 10-26-2019 XA SPECIAL ANGIOGRAP HY PROCEDURE Jeana Pedraza MD Work Phone: Start: 10-26-2019 Renal biopsy prq trocar/needle Cindy Patel MD Work Phone: Start: 10-26-2019 Basic metabolic pane l calcium total Darell Muñozodi DO Work Phone: Start: 10-25-2019 Basic metabolic pane l calcium total Darell Sanches DO Work Phone: Start: 10-24-2019 End: 10-24-2019 Basic metabolic panel calcium total Darell Muñozodi DO Work Phone: Start: 10-23-2019 End: 10-23-2019 Basic metabolic panel calcium total Darell Muñozodi DO Work Phone: Start: 10-22-2019 End: 10-22-2019 Basic metabolic panel calcium total Delon Jessica ELECTRICAL APPLIANCE REPAIRER - ASSOCIATE Work Phone: Start: 10-22-2019 GLOMERULAR BASEMENT MEMBRANE (GBM) ANTIBODY IGG Randolph Liz MD Work Phone: Start: 10-21-2019 Radiologic exam abdo men 1 view Brett Encarnacion MD Work Phone: Start: 10-21-2019 End: 10-21-2019 Dup-scan artl shayan abdl/pel/scrot&/rpr orgn com Brett Encarnacion MD Work Phone: Start: 10-21-2019 Basic metabolic pane l calcium total Delon Jessica ELECTRICAL APPLIANCE REPAIRER - ASSOCIATE Work Phone: Start: 10-20-2019 Basic metabolic pane l calcium total Brett Encarnacion MD Work Phone: Start: 10-20-2019 TRANSFUSE RED BLOOD CELLS Delon Jessica ELECTRICAL APPLIANCE REPAIRER - ASSOCIATE Work Phone: Start: 10-20-2019 TRANSFUSE RED BLOOD CELLS Delon Jessica ELECTRICAL APPLIANCE REPAIRER - ASSOCIATE Work Phone: Start: 10-20-2019 Blood count hemoglobin Delon Jessica ELECTRICAL APPLIANCE REPAIRER - ASSOCIATE Work Phone: Start: 10-20-2019 Basic metabolic pane l calcium total Delon Jessica ELECTRICAL APPLIANCE REPAIRER - ASSOCIATE Work Phone: Start: 10-20-2019 RBC morphology findi ng Nom (Bld) Delon Jessica ELECTRICAL APPLIANCE REPAIRER - ASSOCIATE Work Phone: Start: 10-19-2019 Basic metabolic pane [...] Phone: Comment on above: Test Performed by [facility], [address] [place], [place] [address] Start: 10-19-2019 End: 10-19-2019 ADD ON LAB [...] History of abdom inal surgery Sydni Husain ELECTRICAL APPLIANCE REPAIRER - ASSOCIATE Work Phone: H/O: surgery History of abdom inal surgery Sydni Husain ELECTRICAL APPLIANCE REPAIRER - ASSOCIATE Work Phone: H/O: surgery History of abdom inal surgery Sydni Husain ELECTRICAL APPLIANCE REPAIRER - ASSOCIATE Work Phone: H/O: surgery History of abdom inal surgery Sydni Husain ELECTRICAL APPLIANCE REPAIRER - ASSOCIATE Work Phone: H/O: surgery History of abdom inal surgery Sydni Husain ELECTRICAL APPLIANCE REPAIRER - ASSOCIATE Work Phone: H/O: surgery History of abdom inal surgery Sydni Husain ELECTRICAL APPLIANCE REPAIRER - ASSOCIATE Work Phone: Vaccine refused by patient Missed vaccination due to patient refusal Palak Thurman DO Work Phone: Plan of Treatment Date Care Activity Detail Author Start: 2040 RSV Immunization for Adults (1 - 1-dose 75+ series) RSV Immunization for Adults (1 - 1-dose 75+ series) [facility] Start: 2040 [facility] Start: 01-24-2035 Screening for malignant neoplasm of colon [facility] Start: 03-14-2030 Lipid panel Lipid Panel [facility] Start: 04-17-2026 Creatinine measurement Creatinine Level [facility] Start: 04-17-2026 Potassium measurement Potassium Level [facility] Start: 04-12-2026 Screening for malignant neoplasm of lung Lung Cancer Screening [facility] Start: 04-09-2026 Creatinine measurement Creatinine Level [facility] Start: 04-09-2026 Potassium measurement Potassium Level [facility] Start: 04-05-2026 Creatinine measurement Creatinine Level [facility] Start: 04-05-2026 Potassium measurement Potassium Level [facility] Start: 03-21-2026 Creatinine measurement Creatinine Level [facility] Start: 03-21-2026 Potassium measurement Potassium Level [facility] Start: 03-13-2026 Screening for malignant neoplasm of lung Lung Cancer Screening [facility] Start: 03-05-2026 Creatinine measurement [facility] Start: 03-05-2026 Potassium measurement [facility] Start: 02-23-2026 Creatinine measurement Creatinine Level [facility] Start: 02-23-2026 Echocardiography Echocardiogram [facility] Start: 02-23-2026 Potassium measurement Potassium Level [facility] Start: 02-23-2026 [facility] Start: 02-12-2026 Creatinine measurement Creatinine Level [...] Health Start: 01-08-2026 Creatinine measurement Creatinine Level [facility] Start: 01-08-2026 Potassium measurement Potassium Level [facility] Start: 01-05-2026 Potassium measurement Potassium Level [facility] Start: 01-01-2026 Creatinine measurement Creatinine Level [facility] Start: 01-01-2026 Potassium measurement Potassium Level [facility] Start: 12-30-2025 Creatinine measurement Creatinine Level [facility] Start: 12-30-2025 Potassium measurement Potassium Level [facility] Start: 12-25-2025 Creatinine measurement Creatinine Level [facility] Start: 12-25-2025 Potassium measurement Potassium Level [facility] Start: 12-22-2025 Creatinine measurement Creatinine Level [facility] Start: 12-22-2025 Potassium measurement Potassium Level [facility] Start: 12-18-2025 Creatinine measurement Creatinine Level [facility] Start: 12-18-2025 Potassium measurement Potassium Level [facility] Start: 12-15-2025 Creatinine measurement Creatinine Level [facility] Start: 12-15-2025 Potassium measurement Potassium Level [facility] Start: 12-11-2025 Creatinine measurement Creatinine Level [facility] Start: 12-11-2025 Potassium measurement Potassium Level [facility] Start: 12-04-2025 Creatinine measurement Creatinine Level [facility] Start: 12-04-2025 Potassium measurement Potassium Level [facility] Start: 12-01-2025 Creatinine measurement Creatinine Level [facility] Start: 12-01-2025 Potassium measurement Potassium Level [facility] Start: 11-30-2025 Creatinine measurement Creatinine Level [facility] Start: 11-30-2025 Potassium measurement Potassium Level [facility] Start: 11-29-2025 Creatinine measurement Creatinine Level [facility] Start: 11-29-2025 Potassium measurement Potassium Level [facility] Start: 11-24-2025 Echocardiography Echocardiogram [facility] Start: 11-24-2025 [facility] Start: 2025 RSV Immunization aged 60 or older (1 - 1-dose 60+ series) RSV Immunization aged 60 or older (1 - 1-dose 60+ series) [facility] Start: 11-03-2025 Creatinine measurement Creatinine Level [facility] Start: 11-03-2025 Potassium measurement Potassium Level [facility] Start: 11-02-2025 Echocardiography Echocardiogram [facility] Start: 10-11-2025 Screening for malignant neoplasm of lung [facility] Start: 05-28-2025 Influenza vaccination [facility] Start: 05-28-2025 [facility] Start: 04-26-2025 End: 04-26-2025 Patient encounter procedure 04/26/2025 9:20 AM EDT Office Visit [facility] [place] [address] [place] [address] Yasemin Lucas APRN - ASSOCIATE [address] [place] [address] [facility] Start: 04-12-2025 End: 04-12-2025 Patient encounter procedure [facility] [address] Start: 04-05-2025 End: 04-05-2025 ambulatory [facility] Start: 04-05-2025 End: 04-05-2025 Patient encounter procedure 04/05/2025 1:00 PM EDT [facility] [address] [place] [address] Sophia Lara, ELECTRICAL APPLIANCE REPAIRER - ASSOCIATE [address] [place] [address] [facility] Start: 04-03-2025 End: 04-03-2025 ambulatory [facility] Start: 04-03-2025 End: 04-03-2025 Patient encounter procedure 04/03/2025 10:45 AM EDT Office Visit [facility] Cardiology [facility] [address] [place] [address] Zoe Valadez, ELECTRICAL APPLIANCE REPAIRER - ASSOCIATE [address] [facility] [address] [place] [phone] [facility] Start: 03-26-2025 End: 02-23-2026 CT Chest WO contrast CT chest wo IV contrast Imaging Routine Hemoptysis Expected: 03/26/2025, Expires: 02/23/2026 [facility] Work Phone: Comment on above: Expected: 03/26/2025, Expires: Start: 02-15-2025 End: 02-15-2025 ambulatory [facility] Start: 02-15-2025 End: 02-15-2025 Patient encounter procedure [facility] Start: 02-14-2025 End: 02-14-2025 ambulatory [facility] Infectious Disease - [facility] Start: 02-14-2025 End: 02-14-2025 Patient encounter procedure [facility] Start: 12-25-2024 End: 12-25-2024 Patient encounter procedure 12/25/2024 10:00 AM EDT [facility] [address] [place] [id number] Sophia Lara APRN - ASSOCIATE [address] [place] [address] [facility] Start: 12-18-2024 End: 12-18-2024 Telemedicine consultation with patient 12/18/2024 1:00 PM EDT Telemedicine [facility] Cardiovascular Thoracic Surgery - [place] [address] [place] [id number] Osiris Terrell APRN ASSOCIATE [address] [place] [address] [facility] Cardiovascular Thoracic [facility] Start: 10-09-2024 End: 10-09-2024 Patient encounter procedure 10/09/2024 3:00 PM EST Appointment [facility] [address] [place] [phone] Jr Shah MD [address] [facility] [address] [place] [address] [facility] Start: 09-27-2024 Medicare Advantage Annual Wellness Visit Medicare Advantage Annual Wellness Visit [facility] Start: 09-27-2024 [facility] Start: 09-13-2024 End: 09-13-2024 Patient encounter procedure 09/13/2024 3:00 PM EST Appointment [facility] 1 [facility] [address] [place] [phone] Jr Shah MD [address] [facility] [address] [place], [place] [id number] [facility] 1 [facility] Start: 09-11-2024 End: 08-28-2026 Heart Transthoracic Transthoracic echocardiogram (TTE) complete with contrast, bubble, strain, and 3D PRN CV Echocardiography Routine Nonrheumatic aortic valve stenosis Expected: 09/11/2024 (Approximate), Expires: 08/28/2026 [email or web address] Work Phone: Comment on above: Expected: 09/11/2024 (Approximate), Expi res: 08/28/2026 Start: 08-17-2024 Thyroid stimulating hormone measurement TSH Level [facility] Start: 05-28-2024 COVID-19 Vaccine () COVID-19 Vaccine () [facility] Start: 05-28-2024 Influenza vaccination [facility] Start: 05-28-2024 [facility] Start: 02-07-2024 End: 02-07-2024 Patient encounter procedure [facility] Start: 11-29-2023 End: 11-29-2023 Patient encounter procedure 11/29/2023 3:00 PM EST Appointment [facility] Imaging [address] [place] [phone] Fransisco Pineda, ELECTRICAL APPLIANCE REPAIRER [address] [place] [address] [facility] Imaging Start: 11-24-2023 End: 11-24-2023 Patient encounter procedure 11/24/2023 1:30 PM EST Office Visit [facility] Dermatology [address] [facility] [address] [place] [phone] Madhuri De La Rosa MD [address] [address] [place] [address] [facility] Start: 09-27-2023 Behavioral Health Screening Behavioral Health Screening [facility] Start: 09-27-2023 Medicare Advantage Annual Wellness Visit Medicare Advantage Annual Wellness Visit [facility] Start: 09-07-2023 End: 09-07-2024 CT Chest for screening WO contrast CT lung screening low dose Imaging Routine Nicotine dependence, cigarettes, uncomplicated Personal history of nicotine dependence Expected: 09/07/2023, Expires: 09/07/2024 [email or web address] Work Phone: Comment on above: Expected: 09/07/2023, Expires: 4 Start: 05-28-2023 COVID-19 Vaccine ( season) COVID-19 Vaccine ( season) [facility] Start: 05-28-2023 Influenza vaccination Influenza Vaccine (#1) [facility] Start: 05-10-2023 DIABETES SCREEN DIABETES SCREEN [facility] Start: 05-10-2023 Diabetes Screening Diabetes Screening [facility] Start: 03-13-2023 DIABETES SCREEN DIABETES SCREEN [facility] Start: 05-28-2022 Influenza vaccination INFLUENZA (Season Ended) [facility] Start: 10-22-2021 End: 10-22-2021 Patient encounter procedure 10/22/2021 Office Visit Dermatology Madhuri De La Rosa MD [address] [facility] [place] [address] D[facility] Start: 05-28-2021 Influenza vaccination [facility] Start: 05-20-2021 Hepatitis B Vaccines (1 of 1 - Risk Dialysis 4-dose series) Hepatitis B Vaccines (1 of 1 - Risk Dialysis 4-dose series) [facility] Start: 05-20-2021 [facility] Start: 05-10-2021 HEMOGLOBIN/HEMATOCRIT HEMOGLOBIN/HEMATOCRIT [facility] Start: 05-10-2021 SERUM CREATININE SERUM CREATININE [facility] Start: 12-08-2020 Annual Wellness Visit (AWV) Annual Wellness Visit (AWV) [facility] Start: 2020 PROSTATE CANCER SCREENING DISCUSSION PROSTATE CANCER SCREENING DISCUSSION [facility] Start: 2020 Prostate specific antigen measurement Prostate Cancer Screening Discussion [facility] Start: 11-12-2020 End: 11-12-2020 Office Visit 11/12/2020 Office Visit Dermatology Madhuri De La Rosa MD [address] [facility] [place] [address] D[facility] Start: 10-19-2020 Screening for malignant neoplasm of colon [facility] Start: 05-28-2020 Influenza vaccination [facility] Start: 05-28-2019 Influenza vaccination Flu vaccine (#1) [facility] Work Phone: Start: 2015 Screening for malignant neoplasm of colon Colon cancer screen colonoscopy [place], [place] Start: 2015 Shingles Vaccine (1 of 2) Shingles Vaccine (1 of 2) [facility] Start: 2015 SHINGRIX VACCINE (1 of 2) SHINGRIX VACCINE (1 of 2) [facility] Start: 2015 Tuberculosis screening COLORECTAL CANCER SCREENING,SEE MODIFIER [facility] Start: 2015 Zoster Vaccines (1 of 2) Zoster Vaccines (1 of 2) [facility] Start: 2015 [facility] Start: 2010 COLOGUARD (FIT-DNA) COLOGUARD (FIT-DNA) [facility] Start: 2010 Colonoscopy COLONOSCOPY [facility] Start: 2010 COLORECTAL CANCER SCREENING COLORECTAL CANCER SCREENING [facility] Start: [address] COLONOGRAPHY [facility] Start: 2010 FECAL OCCULT BLOOD FECAL OCCULT BLOOD [facility] Start: 2010 Screening for malignant neoplasm of colon [facility] Start: 2010 SIGMOIDOSCOPY SIGMOIDOSCOPY [facility] Start: 2005 Diabetes screen Diabetes screen [place], [place] Start: 2005 Lipid panel Lipid screen [facility] Start: 2000 Diabetes screen Diabetes screen [facility] Start: 2000 Lipid panel Lipid Screening [facility] Start: 2000 LIPID SCREEN LIPID SCREEN [facility] Start: 1984 DTaP/Tdap/Td vaccine (1 - Tdap) DTaP/Tdap/Td vaccine (1 - Tdap) [facility] Start: 1984 DTaP/Tdap/Td Vaccines (1 - Tdap) DTaP/Tdap/Td Vaccines (1 - Tdap) [facility] Start: 1984 Pneumococcal Vaccine: 50+ Years (1 of 2 - PCV) Pneumococcal Vaccine: 50+ Years (1 of 2 - PCV) [facility] Start: 1984 Urine microalbumin profile [facility] Start: 1984 [facility] Start: 1983 ANNUAL PCP TEAM CHRONIC DISEASE VISIT ANNUAL PCP TEAM CHRONIC DISEASE VISIT [facility] Start: 1983 Anxiety Screening Anxiety Screening [facility] Start: 1983 Depression Screening Depression Screening [facility] Start: 1983 Diabetes mellitus screening [facility] Start: 1983 HEPATITIS C SCREENING HEPATITIS C SCREENING [facility] Start: 1983 HIV SCREENING HIV SCREENING [facility] Start: 1983 HIV screening HIV Screening [facility] Start: 1977 Adult depression screening assessment DEPRESSION SCREENING [facility] Start: 1977 [facility] Start: 1971 Pneumococcal 0-64 years Vaccine (1 of 1 - PPSV23) Pneumococcal 0-64 years Vaccine (1 of 1 - PPSV23) [place], [place] Start: 1971 Pneumococcal 0-64 years Vaccine (1 of 2 - PPSV23) Pneumococcal 0-64 years Vaccine (1 of 2 - PPSV23) [facility] Start: 1971 Pneumococcal vaccination Pneumococcal Vaccine (1 of 2 - PCV) [facility] Start: 1971 Pneumococcal Vaccine: Pediatrics (0 to 5 Years) and At-Risk Patients (6 to 64 Years) (1 - PCV) Pneumococcal Vaccine: Pediatrics (0 to 5 Years) and At-Risk Patients (6 to 64 Years) (1 - PCV) [facility] Start: 1971 Pneumococcal Vaccine: Pediatrics (0 to 5 Years) and At-Risk Patients (6 to 64 Years) (1 of 2 - PCV) Pneumococcal Vaccine: Pediatrics (0 to 5 Years) and At-Risk Patients (6 to 64 Years) (1 of 2 - PCV) [facility] Start: 1970 COVID-19 Vaccine (1) COVID-19 Vaccine (1) [facility] Start: 1966 MMR Vaccines (1 of 1 - Standard series) MMR Vaccines (1 of 1 - Standard series) [facility] Start: 1966 [facility] Start: 05-17-1966 COVID-19 Vaccine (#1) COVID-19 Vaccine (#1) [facility] Start: 05-17-1966 Examination of skin Derm Melanoma Skin Check [facility] Start: 1965 Lipid panel [facility] Start: 1965 Medicare Advantage Annual Wellness Visit (AWV) Medicare Advantage Annual Wellness Visit (AWV) [facility] Start: 1965 Screening for malignant neoplasm of colon [facility] Basic metabolic 2000 panel - Serum or Plasma Basic Metabolic Panel Lab Routine Daily until discontinued starting 10/23/2019, 5 completed [employer] Work Phone: Comment on above: Daily until discontinued starting 2019, 5 completed CBC W Auto Different ial panel - Blood CBC Auto Differential Lab Routine Daily until discontinued starting 10/23/2019, 5 completed [employer] Work Phone: Comment on above: Daily until discontinued starting 2019, 5 completed End: 12-25-2022 COLONOSCOPY DIAGNOSTIC COLONOSCOPY DIAGNOSTIC Endoscopy Routine Acute blood loss anemia Rectal bleeding 1 Occurrences starting 12/25/2021 until 12/25/2022 [facility] Work Phone: Comment on above: 1 Occurrences starting 12/25/2021 until 12/25/2022 End: 12-30-2022 COLONOSCOPY DIAGNOSTIC COLONOSCOPY DIAGNOSTIC Endoscopy Routine Other iron deficiency anemia Rectal bleeding 1 Occurrences starting 12/30/2021 until 12/30/2022 [facility] Work Phone: Comment on above: 1 Occurrences starting 12/30/2021 until 12/30/2022 End: 04-12-2025 CT Chest WO contrast [email or web address] Work Phone: Comment on above: Once for 1 Occurrences starting 04/12/20 until 04/12/2025 Electrocardiogram EKG BIC 2019 3:36 PM EDT [facility] End: 01-22-2025 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 [email or web address] Work Phone: End: 10-19-2019 Hemodialysis inpatient Hemodialysis inpatient Dialysis Routine One Time for 1 Occurrences starting 10/19/2019 until 10/19/2019 [employer] Work Phone: Comment on above: One Time for 1 Occurrences starting 09/28 until 10/19/2019 End: 10-21-2019 Hemodialysis inpatient Hemodialysis inpatient Dialysis Routine One Time for 1 Occurrences starting 10/21/2019 until 10/21/2019 [facility] Work Phone: Comment on above: One Time for 1 Occurrences starting 09/28 until 10/21/2019 End: 10-23-2019 Hemodialysis inpatient Hemodialysis inpatient Dialysis Routine One Time for 1 Occurrences starting 10/23/2019 until 10/23/2019 [facility] Work Phone: Comment on above: One Time for 1 Occurrences starting 09/28 until 10/23/2019 Hemodialysis inpatient Hemodialy sis inpatient Dialysis Routine Every MWF until discontinued starting 10/27/2019 [facility] Work Phone: Comment on above: Every MWF until discontinued starting End: 01-26-2025 Hemoglobin [Mass/volume] in Blood [facility] Work Phone: End: 02-21-2025 Legionella and Streptococcus Urine Antigen [facility] Work Phone: Magnesium [Mass/volu me] in Serum or Plasma MAGNESIUM Lab Routine Daily until discontinued starting 10/23/2019, 5 [facility] Work Phone: Comment on above: Daily until discontinued starting 2019, 5 completed End: 01-22-[address] [facility] End: 01-22-[address] [facility] Peripheral blood smear [facility] Peripheral Blood Smear [facility] Phosphate [Mass/volu me] in Serum or Plasma Phosphorus Lab Routine Daily until discontinued starting 10/23/2019, 5 completed [facility] Work Phone: Comment on above: Daily until discontinued starting 2019, 5 completed End: 09-15-2021 Special treatments and procedures [facility] Work Phone: Comment on above: Once for 1 Occurrences starting 09/15/20 until 09/15/2021 End: 10-26-2019 Surgical Pathology Surgical Pathology Lab STAT Once for 1 Occurrences starting 10/26/2019 until 10/26/2019 [facility] Work Phone: Comment on above: Once for 1 Occurrences starting 10/26/19 20 until 10/26/2019 Surgical Pathology Surgical Path ology Lab STAT 10/26/2019 10:00 AM EST [employer] Work Phone: End: 02-21-2025 Urine Hold Cup [facility] Immunizations Immunization Date Immunization Notes Care Provider Fa [facility] 05-20-2020 hepatitis B vaccine, unspecified formulation Jese Frank MD Work Phone: [facility] 01-19-2020 hepatitis B vaccine, unspecified formulation Jese Frank MD Work Phone: [facility] 12-19-2019 hepatitis B vaccine, unspecified formulation Jese Frank MD Work Phone: [facility] 11-15-2019 hepatitis B vaccine, unspecified formulation Jese Frank MD Work Phone: [facility] Payers Date Payer Category Payer Self-pay 2023 Medicare HMO [id number] 2023 Medicare [id number] 2022 Medicaid HMO [id number] 2022 Medicaid [id number] 2020 Medicaid [id number] [id number] 2020 Medicare [id number] 2020 Medicare [id number] [id number] 2020 Unknown [id number] 2020 Medicaid MEDICAID [facility] MEDICAID [id number] 2020-Present Medicaid [id number] 2019 Medicare MEDICARE MEDICAR E A AND B [id number] 2019-Present [place] [id number] Unknown [id number] Unknown [id number] Unknown [id number] [id number] Unknown [id number] 2.16.840.1.489925.3.579.2.462 Unknown [id number]2 Unknown [id number] 2.840.1.096005.3.579.2.462 Unknown [id number] 2.840.1.816763.3.579.2.462 Unknown [id number] 2.840.1.941938.3.579.2.462 Unknown [id number] 2.840.1.249155.3.579.2.462 Unknown [id number] 2.840.1.450560.3.579.2.462 Unknown [id number] 2.840.1.337934.3.579.2.462 Unknown [id number] 2.840.1.577711.3.579.2.462 Unknown [id number] 2.840.1.410683.3.579.2.462 Unknown [id number] Unknown [id number] Unknown [id number] 2.840.1.140107.3.579.2.462 Unknown [id number] [id number] Unknown [id number] Social History Date Type Detail Facility Start: 1993 End: 03-15-2025 Tobacco smoking status NHIS Current every day smoker [facility] Start: 1993 History of tobacco use Cigarette Smoker [facility] Work Phone: Start: 03-13-2020 End: 03-13-2025 Cigarettes smoked current (pack per day) - Reported [facility] Work Phone: Start: 03-13-2020 End: 03-15-2025 Tobacco use and exposure Never used [facility] Start: 03-13-2020 End: 08-16-2023 Alcohol intake Current drinker of alcohol (finding) [facility] Work Phone: Start: 1965 Sex Assigned At Not on file [facility] Work Phone: Start: 12-15-2021 End: 05-01-2023 Exposure to SARS-CoV-2 (event) Not sure [facility] Start: 10-19-2019 Alcohol Comment on weekends [facility] Work Phone: Start: 12-25-2021 End: 04-17-2025 Alcohol intake Ex-drinker (finding) [facility] Start: 1965 Sex Assigned At Male [facility] Start: 05-01-2023 End: 03-13-2025 Alcohol Use Disorder Identification Test - Consumption [AUDIT-C] [facility] How often to you hav e a drink containing alcohol? Never [facility] How many standard dr inks containing alcohol do you have on a typical day? Patient does not drink [facility] Start: 11-15-2020 Gender identity Identifies as male gender (finding) [facility] Start: 08-10-2020 Sexual orientation Heterosexual (finding) [facility] Start: 04-27-2022 Sex Male (finding) [facility] History of tobacco use Passive smoker [facility] Start: 10-13-2024 Tobacco Comment Started at 28, 3 PPD, tapered down to 1 PPD in 2020 after quitting drinking. 10/27/24 [facility] Tobacco smoking stat us AZIS Unknown if ever smoked [facility] Work Phone: Start: 02-20-2025 Tobacco smoking status AZIS Ex-smoker [facility] Start: 1993 History of tobacco use Current smoker [facility] How often do you nee d to have someone help you when you read instructions, pamphlets, or other written material from your doctor or pharmacy [SILS] Sometimes [facility] Has the electric, ga s, oil, or water company threatened to shut off services in your home in past 12Mo No [facility] Do you feel stress - tense, restless, nervous, or anxious, or unable to sleep at night because your mind is troubled all the time - these days [OSQ] To some extent [facility] (I/We) worried wheth er (my/our) food would run out before (I/we) got money to buy more. Never true [facility] Medical Equipment Procedure Code Equipment Code Equipment Origin al Text Equipment Identifier Dates [id number] Start: 10-12-2024 [id number] Start: 10-09-2024 [id number] Start: 10-14-2024 [id number] Start: 10-14-2024 [id number] Start: 10-14-2024 [id number] Start: 10-14-2024 [id number] Start: 10-14-2024 [id number] Start: 10-14-2024 [id number] Start: 10-14-2024 [id number] Start: 11-03-2024 [id number] Start: 01-30-2025 Functional Status Date Assessment Result Facility 03-13-2025 Total score [AUDIT-C] 0 03/13/20 8:25 AM CARLINT Karo Pérez RN [facility] Clinical Notes 10-24-2019 to 04-25-2025 Telephone Encounter - Claudia Whitfield - 04/25/2025 5:17 PM EDTTelephone Encounter - Claudia Whitfield - 04/25/2025 5:17 PM Khurram Granado RN - 04/17/2025 1:25 PM EDTDischarge InstructionsAttachments Note Date & Type Note Facility 04-25-2025 Telephone encount er Note Name of caller: Sabino Contact phone number: [phone] Relationship to Patient: [place] [facility] Provider: Shayy Practice: Pulm Chief Complaint/Reason for Call: Sabino calling to reschedule appointment 04/26/25. Please advise Sabino. Best time of day caller can be reached: any Patient advised that office/PCP has 24-48 business hours to return their call: Yes [facility] 04-25-2025 Miscellaneous Notes Formattin g of this note might be different from the original. Name of caller: Sabino Contact phone number: [phone] Relationship to Patient: [facility] Provider: Shayy Practice: Pulhuseyin Chief Complaint/Reason for Call: Sabino calling to reschedule appointment 04/26/25. Please advise Sabino. Best time of day caller can be reached: any Patient advised that office/PCP has 24-48 business hours to return their call: Yes documented in this encounter [facility] 04-17-2025 Emergency department Note Report called to [facility]. [facility] 04-17-2025 Emergency department Note Report called to [facility]. PIV placed, blood collected for lab work, pt states it hurts and he does not want an PIV left in, If I leave it he will rip it out. PIV Dc'd documented in this encounter [facility] 04-17-2025 Hospital Discharg elder Solares MD - 04/17/2025 10:58 AM EDT [...] Do When Your INR Is Too High (Vietnamese)documented in this encounter [facility] 04-17-2025 Emergency department Note PIV placed, blood collected for lab work, pt states it hurts and he does not want an PIV left in, If I leave it he will rip it out. PIV Dc'd [facility] 04-11-2025 Note At this time patient s appointment is cancelled due to insurance being a HMO, there is no referral on file. Provided fax number once received will contact to schedule. Please advise [facility] 04-11-2025 Telephone encount er Note At this time patients appointment is cancelled due to insurance being a HMO, there is no referral on file. Provided fax number once received will contact to schedule. Please advise [facility] 04-11-2025 Miscellaneous Notes Formattin g [...] Medication Name: n/a documented in this encounter [facility] 04-11-2025 Telephone encount er Note Scheduled next avail with Dr. Mata. [facility] 04-11-2025 Telephone encount er Note Name of Caller: Sabino Contact Reason for Appointment: Sabino requesting to schedule patient appointment for podiatry. Please advise. Office Name: Ortho Medication Refills need, if any: n/a Medication Name: n/a [facility] 04-09-2025 Emergency department Note Consuelo Johnson here to transport pt back to facility. [facility] 04-09-2025 Emergency department Note Consuelo [...] to the emergency department via EMS from [facility] for evaluation of hyperkalemia. Patient states that [...] who presents to the emergency department from [facility] with concerns for hyperkalemia. Patient [...] signs. FINAL IMPRESSION 1. ESRD on hemodialysis ([facility]) ([facility]) 2. Contusion of dorsum of right hand DISPOSITION Discharge 04/09/2025 01:35:38 PM Shared decision making preformed. PATIENT REFERRED TO: [facility] ED [address] [id number] As needed, If symptoms worsen (Comment: [...] History: Diagnosis Date Acute renal failure (ARF) ([facility]) 10/19/2019 Anemia 12/30/2021 Calcification of abdominal aorta ([facility]) 10/08/202309/[address] abd Diverticulosis 10/08/2023 ESRD on hemodialysis ([facility]) ([facility]) 10/26/2019 Hemodialysis patient ([facility]) ([facility]) HTN (hypertension) 12/01/2022 Hypertension IgA nephropathy IgA [...] 10/09/2024 Performed by Bob Watson MD at [facility] Cardiac Cath/EP Lab CARDIAC CATHETERIZATION Bilateral 11/01/2024 Performed by Bob Watson MD at [facility] Cardiac Cath/EP Lab CARDIAC CATHETERIZATION N/A 11/01/2024 Performed by Bob Watson MD at [facility] Cardiac Cath/EP Lab COLONOSCOPY N/A 01/24/2025 Performed by Chadd Davis MD at [facility] ENDOSCOPY FISTULAGRAM (HISTORICAL) Left 09/15/2021 LEFT UPPER ARM HX AV FISTULA CREATION IR EMBOLIZATION 10/14/2024 IR EMBOLIZATION 10/14/2024 [facility] SPECIAL PROCEDURES IR FISTULAGRAM 08/07/2022 [...] 0 min Stress: Stress Concern Present (02/21/2025) [employer] - Occupational Stress Questionnaire Feeling of Stress : To some extent Social Connections: Unknown (02/21/2025) Social Connection and Isolation Panel [NHANES] Frequency of Communication with Friends and Family: More than three times a week Frequency of Social Gatherings with Friends and Family: Patient declined Attends [employer] Services: Patient declined Active Member of Clubs [...] PA-C 04/09/25 1400 documented in this encounter [facility] 04-09-2025 Hospital Discharg e instructions [...] change or worsen. documented in this encounter [facility] 04-09-2025 Physician Emergen cy department [...] to the emergency department via EMS from [facility] for evaluation of hyperkalemia. Patient states that [...] who presents to the emergency department from [facility] with concerns for hyperkalemia. Patient [...] signs. FINAL IMPRESSION 1. ESRD on hemodialysis ([facility]) ([facility]) 2. Contusion of dorsum of right hand DISPOSITION Discharge 04/09/2025 01:35:38 PM Shared decision making preformed. PATIENT REFERRED TO: [facility] ED [address] [place] [phone] As needed, If symptoms worsen (Comment: [...] History: Diagnosis Date Acute renal failure (ARF) ([facility]) 10/19/2019 Anemia 12/30/2021 Calcification of abdominal aorta ([facility]) 10/08/202309/[address] abd Diverticulosis 10/08/2023 ESRD on hemodialysis ([facility]) ([facility]) 10/26/2019 Hemodialysis patient ([facility]) ([facility]) HTN (hypertension) 12/01/2022 Hypertension IgA nephropathy IgA nephropathy determined by biopsy of kidney 10/26/2019 Missed vaccination due to patient refusal 10/08/2023 Has a number of non-scientific based beliefs which interfere with his understanding and acceptance of the medical benefit of vaccination. Nonrheumatic aortic valve stenosis 10/08/2023 Paroxysmal A-fib ([facility]) ([facility]) 08/18/2023 Tobacco abuse 10/08/2023 [2] Past Surgical History: Procedure Laterality Date APPENDECTOMY CARDIAC CATHETERIZATION N/A 10/09/2024 Performed by Bob Watson MD at [facility] Cardiac Cath/EP Lab CARDIAC CATHETERIZATION Bilateral 11/01/2024 Performed by Bob Watson MD at [facility] Cardiac Cath/EP Lab CARDIAC CATHETERIZATION N/A 11/01/2024 Performed by Bob Watson MD at [facility] Cardiac Cath/EP Lab COLONOSCOPY N/A 01/24/2025 Performed by Chadd Davis MD at [facility] ENDOSCOPY FISTULAGRAM (HISTORICAL) Left 09/15/2021 LEFT UPPER ARM HX AV FISTULA CREATION IR EMBOLIZATION 10/14/2024 IR EMBOLIZATION 10/14/2024 [facility] SPECIAL PROCEDURES IR FISTULAGRAM 08/07/2022 [...] 0 min Stress: Stress Concern Present (02/21/2025) [employer] - Occupational Stress Questionnaire Feeling of Stress : To some extent Social Connections: Unknown (02/21/2025) Social Connection and Isolation Panel [NHANES] Frequency of Communication with Friends and Family: More than three times a week Frequency of Social Gatherings with Friends and Family: Patient declined Attends [employer] Services: Patient declined Active Member of Clubs [...] Year: No Yari Santos PA-C 04/09/25 1400 [facility] 04-05-2025 Hospital Discharg e instructions Barbara Mckeon [...] follow-up as recommended. documented in this encounter [facility] 04-05-2025 Nurse Note Patient Name: Jun Snyder Patient : 1965 Acct: [id number] Date of Admission: 04/05/2025 Room/Bed: Code Status: [...] (0) 3 Regular None (Room air) Clear;Diminished [address];Ecchymosis Warm;Dry Soft Present pt consents to dialysis [...] - Before each treatment: Dialysis Machine No.: [id number] RO Machine Number: [id number] Dialyzer Lot No.: [id number] Tubing Lot Number: [id number] All Connections Secure: Yes Venous Parameters Set: Yes Arterial Parameters Set: Yes NS Bag: Yes Saline Line Double Clamped: Yes Dialyzer: Nipro Prime Volume (mL): 200 mL RO Machine Number: [id number] RO Machine Log Sheet Completed: Yes Machine Alarm Self Test: Completed, Passed (1351) (04/05/25 1351) Air Foam Detector: Tested, Proper Function Extracorporeal Circuit Tested for Integrity: Yes Machine Conductivity: 13.6 Manual Conductivity: 13.6 Manual Ph: 7 Bleach Test (Neg): Yes Bath Temperature: 36 C (96.8 F) Conductivity Meter Serial #: [id number] Machine Functioning Alarm Free? Yes Dialysis Bath: K+ (Potassium): 2 Ca+ (Calcium): 2.5 Na+ (Sodium): 137 HCO3 (Bicarb): 35 Bicarbonate Concentrate Lot No.: [id number] Acid Concentrate Lot No.: [id number] Chlorine Testing - Before each treatment and [...] Active Problem List Diagnosis Anemia Paroxysmal A-fib ([facility]) (HCC) HTN (hypertension) ESRD on hemodialysis ([facility]) ([facility]) IgA nephropathy determined by biopsy of kidney Diverticulosis Nonrheumatic aortic valve stenosis Calcification of abdominal aorta (HCC) Missed vaccination due to patient refusal Tobacco abuse Alcohol use disorder in remission Atrial flutter, unspecified type ([facility]) RSV (acute bronchiolitis due to respiratory syncytial [...] failure with hypoxia (HCC) [J96.01] Tracheostomy care ([facility]) [Z43.0] 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 Complication of tracheostomy (CMS/HCC) (HCC) BRBPR (bright red blood per rectum) Hemoptysis SOB (shortness of breath) Moderate malnutrition (CMS/HCC) ([facility]) Shortness of breath [3] [facility] 04-05-2025 Nurse Note Patient Name: Jun Snyder Patient : 1965 Acct: [id number] Date of Admission: 04/05/2025 Room/Bed: Code Status: [...] (0) 3 Regular None (Room air) Clear;Diminished [address];Ecchymosis Warm;Dry Soft Present pt consents to dialysis [...] - Before each treatment: Dialysis Machine No.: [id number] RO Machine Number: [id number] Dialyzer Lot No.: [id number] Tubing Lot Number: [id number] All Connections Secure: Yes Venous Parameters Set: Yes Arterial Parameters Set: Yes NS Bag: Yes Saline Line Double Clamped: Yes Dialyzer: Nipro Prime Volume (mL): 200 mL RO Machine Number: [id number] RO Machine Log Sheet Completed: Yes Machine Alarm Self Test: Completed, Passed (1351) (04/05/25 1351) Air Foam Detector: Tested, Proper Function Extracorporeal Circuit Tested for Integrity: Yes Machine Conductivity: 13.6 Manual Conductivity: 13.6 Manual Ph: 7 Bleach Test (Neg): Yes Bath Temperature: 36 C (96.8 F) Conductivity Meter Serial #: [id number] Machine Functioning Alarm Free? Yes Dialysis Bath: K+ (Potassium): 2 Ca+ (Calcium): 2.5 Na+ (Sodium): 137 HCO3 (Bicarb): 35 Bicarbonate Concentrate Lot No.: [id number] Acid Concentrate Lot No.: [id number] Chlorine Testing - Before each treatment and every 4 hours: Time On: 1403 Treatment Goal: 2L Weight Height: 177.8 cm (5' 10") (04/05/25 1015) Weight: 66.7 kg (147 lb) (04/05/25 1015) BMI (Calculated): 21.09 (04/05/25 101) 1st check: [...] (HCC) HTN (hypertension) ESRD on hemodialysis (CMS/HCC) ([facility]) IgA nephropathy determined by biopsy of kidney [...] (CMS/HCC) (HCC) Acute respiratory failure with hypoxia ([facility]) [J96.01] Tracheostomy care ([facility]) [Z43.0] 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 [facility] 04-05-2025 Emergency department Note Dialysis [...] for clarification. Dieter Villegas MD 04/05/25 1329 Pt here to the ER via EMS [...] and get vitals. documented in this encounter [facility] 04-05-2025 Miscellaneous Notes Formattin g of this note might be different from the original. Noted Spoke with patient's nurse from [facility]. Patient's nurse stated will need to cancel today's appointment. Nurse stated Patient was sent to [place] for tachycardia. Nurse stated can not complete dialysis with patient's tachycardia. Nurse stated Sabino who scheduled appointments will call the office at a later time to reschedule patient's appointment. FYI to provider. documented in this encounter [facility] 04-05-2025 Telephone encount er Note Noted [facility] Work Phone: 04-05-2025 Emergency department Note Pt has no complaints at this time. [facility] 04-05-2025 Emergency department Triage note [...] to hook pt up and get vitals. [facility] 04-05-2025 Physician Emergen cy department [...] for clarification. Dieter Villegas MD 04/05/25 1329 [facility] 04-05-2025 Telephone encount er Note Spoke with patient's nurse from [facility]. Patient's nurse stated will need to cancel today's appointment. Nurse stated Patient was sent to [facility] for tachycardia. Nurse stated can not complete dialysis with patient's tachycardia. Nurse stated Sabino who scheduled appointments will call the office at a later time to reschedule patient's appointment. FYI to provider. [facility] 03-26-2025 Telephone encount er Note 3rd attempt unable to speak to Sabino she's not in the office at them moment. Left message to call the office back to schedule [facility] 03-26-2025 Miscellaneous Notes Formattin g [...] this? Thank you documented in this encounter [facility] 03-26-2025 Telephone encount er Note Sabino has been notified the visit can not be virtual [facility] 03-26-2025 Miscellaneous Notes Formattin g of this note might be different from the original. Sabino has been notified the visit can not be virtual Name of Caller: SabinoMitzy Delvalle [place] Contact Reason for Appointment: Change 04/05/25 hospital follow up to a vv. Please call and advise. Office Name: [facility] Cindy documented in this encounter [facility] 03-26-2025 Telephone encount er Note Name of Caller: Bobbi Delvalle Alden Contact Reason for Appointment: Change 04/05/25 hospital follow up to a vv. Please call and advise. Office Name: [facility] Neurology Cindy [facility] 03-21-2025 Nurse Note Educated pt on importance of prescribed medications. Pt still refused. [facility] 03-21-2025 Nurse Note Educated pt on importance of prescribed medications. Pt still refused. Patient Name: Jun Snyder Patient : 1965 Acct: [id number] Date of Admission: 03/13/2025 Room/Bed: [facility] A Code Status: Full Code Allergies: Allergies[1] [...] - Before each treatment: Dialysis Machine No.: [id number] RO Machine Number: [id number] Dialyzer Lot No.: [id number] Tubing Lot Number: [id number] All Connections Secure: Yes Venous Parameters Set: Yes Arterial Parameters Set: Yes NS Bag: Yes Saline Line Double Clamped: Yes Dialyzer: Nipro Prime Volume (mL): 200 mL RO Machine Number: [id number] RO Machine Log Sheet Completed: Yes Machine Alarm Self Test: Completed, Passed (03/20/25 1145) Air Foam Detector: Tested, Proper Function, pH Reading Extracorporeal Circuit Tested for Integrity: Yes Machine Conductivity: 13.8 Manual Conductivity: 13.8 Manual Ph: 7 Bleach Test (Neg): Yes Bath Temperature: 36 C (96.8 F) Conductivity Meter Serial #: [id number] Machine Functioning Alarm Free? Yes Dialysis Bath: [...] Other (Comment) (to inform [facility] arrival [facility] and need for orders) Provider [...] Active Problem List Diagnosis Anemia Paroxysmal A-fib ([facility]) ([facility]) HTN (hypertension) ESRD on hemodialysis ([facility]) ([facility]) IgA nephropathy determined by biopsy of kidney Diverticulosis Nonrheumatic aortic valve stenosis Calcification of abdominal aorta ([facility]) Missed vaccination due to patient refusal Tobacco abuse Alcohol use disorder in remission Atrial flutter, unspecified type ([facility]) RSV (acute bronchiolitis due to respiratory syncytial virus) Aortic stenosis Upper GI bleed S/P AVR Acute hypoxic respiratory failure ([facility]) Acute encephalopathy Pneumoperitoneum Gastric ulceration Severe malnutrition (CMS/HCC) ([facility]) Pleural effusion Peritonitis due to fungus ([facility]) History of abdominal surgery Leg DVT (deep venous thromboembolism), acute, left (HCC) Ischemic ulcer of toe of left foot, 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) Tracheostomy dependence ([facility]) Leukocytosis Decubitus ulcer of sacral region, unstageable ([facility]) Pneumonia of both lungs due to methicillin susceptible Staphylococcus aureus (MSSA) ([facility]) Sacral osteomyelitis ([facility]/HCC) ([facility]) Acute respiratory failure with hypoxia ([facility]) [J96.01] Tracheostomy care ([facility]) [Z43.0] Pulmonary embolism ([facility]) 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 Complication of tracheostomy ([facility]/HCC) ([facility]) BRBPR (bright red blood per rectum) Hemoptysis SOB (shortness of breath) Moderate malnutrition (CMS/HCC) ([facility]) [3] heparin, 5-30 Units/kg/hr, Last Rate: 20 Units/kg/hr (03/20/25 1328) Wound vac suction failing-pt requesting wound vac removed for now. Black foam dressing removed and wound packed with saline-soaked gauze covered with DSD Pt adamantly refusing telemetry at this time, ripped off monitor and threw to the floor Patient Name: Jun Snyder Patient : 1965 Acct: [id number] Date of Admission: 03/13/2025 Room/Bed: [facility] A Code Status: Full Code Allergies: Allergies[1] [...] 22 03/17/2025 0047 CREATININE 3.25 (H) 03/17/2025 004 CREATININE 9.99 (H) 10/27/2019 0545 CALCIUM 9.6 03/17/2025 0047 PHOS 2.6 02/23/2025 0032 IV Drips and Rate/Dose Continuous Meds[3] Safety - Before each treatment: Dialysis Machine No.: [id number] RO Machine Number: [id number] Dialyzer Lot No.: [id number] Tubing Lot Number: [id number] All Connections Secure: Yes Venous Parameters Set: Yes Arterial Parameters Set: Yes NS Bag: Yes Saline Line Double Clamped: Yes Dialyzer: Nipro Prime Volume (mL): 200 mL RO Machine Number: [id number] RO Machine Log Sheet Completed: Yes Machine Alarm Self Test: Completed, Passed (03/17/25 0803) Air Foam Detector: Tested, Proper Function, pH Reading Extracorporeal Circuit Tested for Integrity: Yes Machine Conductivity: 13.6 Manual Conductivity: 13.6 Manual Ph: 7 Bleach Test (Neg): Yes Bath Temperature: 36 C (96.8 F) Conductivity Meter Serial #: [id number] Machine Functioning Alarm Free? Yes Dialysis Bath: [...] Other (Comment) (to inform patient arrival [facility] and need for orders) Provider [...] Problem List Diagnosis Anemia Paroxysmal A-fib (CMS/HCC) ([facility]) HTN (hypertension) ESRD on hemodialysis ([facility]) ([facility]) IgA nephropathy determined by biopsy of kidney Diverticulosis Nonrheumatic aortic valve stenosis Calcification of abdominal aorta ([facility]) Missed vaccination due to patient refusal Tobacco abuse Alcohol use disorder in remission Atrial flutter, unspecified type ([facility]) RSV (acute bronchiolitis due to respiratory syncytial virus) Aortic stenosis Upper GI bleed S/P AVR Acute hypoxic respiratory failure ([facility]) Acute encephalopathy Pneumoperitoneum Gastric ulceration Severe malnutrition (CMS/HCC) ([facility]) Pleural effusion Peritonitis due to fungus ([facility]) History of abdominal surgery Leg DVT (deep venous thromboembolism), acute, left ([facility]) Ischemic ulcer of toe of left foot, limited to breakdown of skin ([facility]) Tracheostomy dependence ([facility]) Leukocytosis Decubitus ulcer of sacral region, unstageable ([facility]) Pneumonia of both lungs due to methicillin susceptible Staphylococcus aureus (MSSA) ([facility]) Sacral osteomyelitis ([facility]/HCC) ([facility]) Acute respiratory failure with hypoxia ([facility]) [J96.01] Tracheostomy care ([facility]) [Z43.0] Pulmonary embolism ([facility]) 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 Complication of tracheostomy ([facility]) ([facility]) BRBPR (bright red blood per rectum) Hemoptysis SOB (shortness of breath) Moderate malnutrition ([facility]) ([facility]) [3] heparin, 5-30 Units/kg/hr Patient Name: Jun Snyder Patient : 1965 Acct: [id number] Date of Admission: 03/13/2025 Room/Bed: [facility] A Code Status: Full Code Allergies: Allergies[1] [...] - Before each treatment: Dialysis Machine No.: [id number] RO Machine Number: [id number] Dialyzer Lot No.: [id number] Tubing Lot Number: [id number] All Connections Secure: Yes Venous Parameters Set: Yes Arterial Parameters Set: Yes NS Bag: Yes Saline Line Double Clamped: Yes Dialyzer: Nipro Prime Volume (mL): 200 mL RO Machine Number: [id number] RO Machine Log Sheet Completed: Yes Machine Alarm Self Test: Completed, Passed (03/15/25 1215) Air Foam Detector: Tested, Proper Function, pH Reading Extracorporeal Circuit Tested for Integrity: Yes Machine Conductivity: 13.8 Manual Conductivity: 13.7 Manual Ph: 7 Bleach Test (Neg): Yes Bath Temperature: 36 C (96.8 F) Conductivity Meter Serial #: [id number] Machine Functioning Alarm Free? Yes Dialysis Bath: [...] Other (Comment) (to inform patient arrival from [facility] and need for orders) Provider [...] Active Problem List Diagnosis Anemia Paroxysmal A-fib ([facility]) ([facility]) HTN (hypertension) ESRD on hemodialysis ([facility]) ([facility]) IgA nephropathy determined by biopsy of kidney Diverticulosis Nonrheumatic aortic valve stenosis Calcification of abdominal aorta ([facility]) Missed vaccination due to patient refusal Tobacco abuse Alcohol use disorder in remission Atrial flutter, unspecified type ([facility]) RSV (acute bronchiolitis due to respiratory syncytial virus) Aortic stenosis Upper GI bleed S/P AVR Acute hypoxic respiratory failure ([facility]) Acute encephalopathy Pneumoperitoneum Gastric ulceration Severe malnutrition (CMS/HCC) ([facility]) Pleural effusion Peritonitis due to fungus ([facility]) History of abdominal surgery Leg DVT (deep venous thromboembolism), acute, left ([facility]) Ischemic ulcer of toe of left foot, limited to breakdown of skin ([facility]) Tracheostomy dependence ([facility]) Leukocytosis Decubitus ulcer of sacral region, unstageable ([facility]) Pneumonia of both lungs due to methicillin susceptible Staphylococcus aureus (MSSA) ([facility]) Sacral osteomyelitis ([facility]/HCC) ([facility]) Acute respiratory failure with hypoxia ([facility]) [J96.01] Tracheostomy care ([facility]) [Z43.0] Pulmonary embolism ([facility]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 Pt's Kee score= 14 on 03/13 Pt's pressure points assessed. Pt's Heels, Back, Elbows, Occiput and ears all intact. [address] and healed area noted to occiput. Pt moving lower extremities well in bed against gravity. Pt currently followed by [facility] group for wounds to left toes 1-4 and sacrum with wound vac in place. For left toes, sacrum, and sacral wound vac assessments and treatment plan, please see Wound/Ostomy WIRE TWISTER progress notes. Instructed pt on pressure injury prevention and importance of turning/postioning every 2hrs while in bed and every 15 min while sitting in chair. Instructed on use and care of waffle chair cushion. Verbalized understanding. Prevention Measures in place, including: Jeremiah sheet with pillows/wedges, Heels elevated off bed on pillows, Zinc/Moisture Barrier ointment (obtained), Waffle chair cushion (obtained for pt). Skin Care precaution order set in place. Dietitian consult order placed d/t wounds. PT/OT consult in place. Will continue to follow pt. Please Vocera for any questions or concerns. Yari Pelletier RN Patient Name: Jun Snyder Patient : 1965 Acct: [id number] Date of Admission: 03/13/2025 Room/Bed: [facility] A Code Status: Full Code Allergies: Allergies[1] [...] - Before each treatment: Dialysis Machine No.: [id number] Machine Number: [id number] Dialyzer Lot No.: [id number] Tubing Lot Number: [id number] All Connections Secure: Yes Venous Parameters Set: Yes Arterial Parameters Set: Yes NS Bag: Yes Saline Line Double Clamped: Yes Dialyzer: Nipro Prime Volume (mL): 200 mL RO Machine Number: [id number] RO Machine Log Sheet Completed: Yes Machine Alarm Self Test: Completed, Passed (03/14/25 1135) Air Foam Detector: Tested, Proper Function, pH Reading Extracorporeal Circuit Tested for Integrity: Yes Machine Conductivity: 13.7 Manual Conductivity: 13.6 Manual Ph: 7 Bleach Test (Neg): Yes Bath Temperature: 36 C (96.8 F) Conductivity Meter Serial #: [id number] Machine Functioning Alarm Free? Yes Dialysis Bath: K+ (Potassium): 3 Ca+ (Calcium): 2.5 Na+ (Sodium): 135 HCO3 (Bicarb): 35 Chlorine Testing - Before each treatment and every 4 hours: Time On: 1237 Time Off: 1537 Treatment Goal: 1L Weight Height: 177.8 cm (5' 10") (03/13/25 1654) Weight: 66.8 kg (147 lb 3.2 oz) (03/14/25 0323) BMI (Calculated): 21.12 (03/14/25 032) 1st check: [...] Other (Comment) (to inform patient arrival from [facility] and need for orders) Provider [...] Active Problem List Diagnosis Anemia Paroxysmal A-fib ([facility]) ([facility]) HTN (hypertension) ESRD on hemodialysis ([facility]) ([facility]) IgA nephropathy determined by biopsy of kidney Diverticulosis Nonrheumatic aortic valve stenosis Calcification of abdominal aorta ([facility]) Missed vaccination due to patient refusal Tobacco abuse Alcohol use disorder in remission Atrial flutter, unspecified type ([facility]) RSV (acute bronchiolitis due to respiratory syncytial virus) Aortic stenosis Upper GI bleed S/P AVR Acute hypoxic respiratory failure ([facility]) Acute encephalopathy Pneumoperitoneum Gastric ulceration Severe malnutrition ([facility]) ([facility]) Pleural effusion Peritonitis due to fungus ([facility]) History of abdominal surgery Leg DVT (deep venous thromboembolism), acute, left ([facility]) Ischemic ulcer of toe of left foot, 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) Tracheostomy dependence (HCC) Leukocytosis Decubitus ulcer of sacral region, unstageable (HCC) Pneumonia of both lungs due to methicillin susceptible Staphylococcus aureus (MSSA) (HCC) Sacral osteomyelitis (CMS/HCC) (HCC) Acute respiratory failure with hypoxia ([facility]) [J96.01] Tracheostomy care ([facility]) [Z43.0] Pulmonary embolism ([facility]) 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 Complication of tracheostomy (CMS/HCC) ([facility]) BRBPR (bright red blood per rectum) Hemoptysis SOB (shortness of breath) [3] Removed wound vac that patient arrived to 5w from e[facility] pictures of all wound taken on rover and saved to chart NSWto DSD applied to sacral wound documented in this encounter [facility] 03-21-2025 Note Formatting of this n ote might be different from the original. MAR, Labs & Discharge med list transmitted to [facility] via [facility] per TCC request. [facility] 03-21-2025 Note Formatting of this n ote might be different from the original. MAR, Labs & Discharge med list transmitted to [facility] via [facility] per TCC request. [facility] 03-21-2025 Miscellaneous Notes Formattin g of this note might be different from the original. MAR, Labs & Discharge med list transmitted to [facility] via [facility] per TCC request. Transport requested in Roundtrip. Awaiting time confirmation. Confirmed pickup time of 5:00PM by transport [employer] Consuelo Mitchell at phone number . Location of facility drop off is [facility]. Facility notified via [facility], Kaity Rivera notified on secure chat. Care Management Progress Note Short Medical why still here: Heparin gtt stopped today. . INR 2.9 today. Getting Coumadin. Refusing to work with therapy. They would like to skill him if able. Planned Discharge Disposition: Shelter/Residential Care Barriers/Today we still Wait: Administering IV [...] Coumadin. INR 1.9 today Planned Discharge Disposition: Shelter/Residential Care Barriers/Today we still Wait: Clinical stability [...] When stable plan is to return to [place] [place].. . Length of Stay (Days): 6 GMLOS: [...] for gangrenous toes. Anticipate discharge back to [facility] soon. . Length of Stay (Days): 3 [...] When stable is a bed hold at [facility]. . Length of Stay (Days): 2 [...] therapies are following. Wants to return to [facility]. Is a bed hold, but if they can skill him they would like to.. Length of Stay (Days): 1 GMLOS: No GMLOS Documented Referral placed to [facility] Return - [facility] via [facility] per TCC request. Await review and response regarding ability to accept. TCC notified. Problem: Knowledge Deficit Goal: Patient/family/caregiver demonstrates understanding of disease process, treatment plan, medications, and discharge instructions Outcome: Progressing Problem: Potential for Compromised Skin Integrity Goal: Skin Integrity is Maintained or Improved Outcome: Progressing documented in this encounter [facility] 03-21-2025 Note Formatting of this n ote might be different from the original. Transport requested in Roundtrip. Awaiting time confirmation. Confirmed pickup time of 5:00PM by transport [employer] at phone number . Location [facility] facility drop off [facility]. [facility], Kaity Rivera notified on secure chat. [facility] 03-21-2025 Note Formatting of this n ote might be different from the original. Transport requested in Roundtrip. Awaiting time confirmation. Confirmed pickup time of 5:00PM by transport company Consuelo Mitchell at phone number . Location of facility drop off is [facility]. Facility notified via [employer], Kaity Rivera notified on secure chat. [facility] 03-21-2025 Note [facility] 03-21-2025 Hospital course Narrative Discharge [...] Klebsiella pneumonia with lung abscess presented to [facility] with worsening shortness of breath. He [...] Complexity: follow up within 7-14 calendar days (86440) [x] Severe Complexity: follow up within 7 calendar days (74260) FOLLOW UP TESTING, PENDING RESULTS OR REFERRALS AT TRANSITIONAL CARE VISIT: [] Yes [x] No PENDING STUDIES: None DISPOSITION: [facility] Care Facility (Non-Skilled) FACILITY/HOME CARE AGENCY NAME: [facility] Follow up with [address] [facility] [id number] Follow up INSTRUCTIONS TO MA/SW: [...] 03/21/2025, 12:07 PM documented in this encounter [facility] 03-21-2025 History of Presen t [...] Klebsiella pneumonia with lung abscess presented to [facility] with worsening shortness of breath. He [...] Intake/Output Summary (Last 24 hours) at 03/21/2025 0926 Last data filed at 03/20/2025 1523 Gross [...] Discharge - Date -0-1 days - Location -[facility] - Pending the following - Extended Emergency Contact Information Primary Emergency Contact: Omar Snyder Mobile Relation: Child Secondary Emergency Contact: Toma Mcneil Mobile Relation: Partner Anu Castro MD Division of Hospital Medicine [facility]patient Medical Services[place] [1] Past Medical History: Diagnosis Date Acute renal failure (ARF) ([facility]) 10/19/2019 Anemia 12/30/2021 Calcification of abdominal aorta ([facility]) 10/08/202309/[address] abd Diverticulosis 10/08/2023 ESRD on hemodialysis ([facility]) ([facility]) 10/26/2019 Hemodialysis patient ([facility]) ([facility]) HTN (hypertension) 12/01/2022 Hypertension IgA nephropathy IgA nephropathy determined by biopsy of kidney 10/26/2019 Missed vaccination due to patient refusal 10/08/2023 Has a number of non-scientific based beliefs which interfere with his understanding and acceptance of the medical benefit of vaccination. Nonrheumatic aortic valve stenosis 10/08/2023 Paroxysmal A-fib ([facility]) ([facility]) 08/18/2023 Tobacco abuse 10/08/2023 [2] Lidocaine, 1 [...] History: Diagnosis Date Acute renal failure (ARF) ([facility]) 10/19/2019 Anemia 12/30/2021 Calcification of abdominal aorta ([facility]) 10/08/202309/[address] abd Diverticulosis 10/08/2023 ESRD on hemodialysis ([facility]) ([facility]) 10/26/2019 Hemodialysis patient ([facility]) ([facility]) HTN (hypertension) 12/01/2022 Hypertension IgA nephropathy IgA nephropathy determined by biopsy of kidney 10/26/2019 Missed vaccination due to patient refusal 10/08/2023 Has a number of non-scientific based beliefs which interfere with his understanding and acceptance of the medical benefit of vaccination. Nonrheumatic aortic valve stenosis 10/08/2023 Paroxysmal A-fib ([facility]) ([facility]) 08/18/2023 Tobacco abuse 10/08/2023 Images from the original note were not included. PHYSICAL THERAPY [facility] Name/MRN: Jair Snyder ([id number]) Date: 03/21/2025 Chart review completed this date. [...] Tay PT at 03/21/2025 2:[address] [facility] Anticoagulation Management Service (SAILAJA) Inpatient [...] [facility], PharmD SAILAJA is available daily [phone] via [employer]. If no response on [employer] Chat then please page [phone]. [1] Past Medical History: Diagnosis Date Acute renal failure (ARF) ([facility]) 10/19/2019 Anemia 12/30/2021 Calcification of abdominal aorta ([facility]) 10/08/202309/[address] abd Diverticulosis 10/08/2023 ESRD on hemodialysis ([facility]) ([facility]) 10/26/2019 Hemodialysis patient ([facility]) ([facility]) HTN (hypertension) 12/01/2022 Hypertension IgA nephropathy IgA nephropathy determined by biopsy of kidney 10/26/2019 Missed vaccination due to patient refusal 10/08/2023 Has a number of non-scientific based beliefs which interfere with his understanding and acceptance of the medical benefit of vaccination. Nonrheumatic aortic valve stenosis 10/08/2023 Paroxysmal A-fib ([facility]) ([facility]) 08/18/2023 Tobacco abuse 10/08/2023 Nutrition Assessment Type [...] Klebsiella pneumonia with lung abscess presented to [place] ED with worsening shortness of breath. He [...] (Aug 2024) % Weight Change (Calculated): -28.6 [place] Body Weight (lbs) (Calculated): 166 lbs [place] Body Weight (Kg) (Calculated): 75 kg % [place] Body Weight (Calculated): 88.6 % BMI (kg/m2) [...] Yasemin Ceron MS, RD, LD Contact: or [employer] Chat (dial *[phone] from hospital phone) [1] Lidocaine, 1 patch, Topical, Daily metoprolol tartrate, 50 mg, Oral, BID pantoprazole, 40 mg, Oral, BID AC sevelamer carbonate, 800 mg, Oral, TID WC sodium zirconium cyclosilicate, 5 g, Oral, Daily [2] heparin, 5-30 Units/kg/hr, Last Rate: 20 Units/kg/hr (03/20/25 1643) [facility] Anticoagulation Management Service (SAILAJA) Inpatient [...] dose accordingly. 4. Warfarin is followed by [facility] outpatient. SAILAJA will manage inpatient and take over management once discharged from [facility]. Michael Koehler PharmD candidate 2025, staffed with Fatuma Odonnell PharmD, [facility] SAILAJA is available daily [phone] via [employer]. If no response on [employer] Chat then please page [phone]. [1] Past Medical History: Diagnosis Date Acute renal failure (ARF) ([facility]) 10/19/2019 Anemia 12/30/2021 Calcification of abdominal aorta ([facility]) 10/08/202309/[address] abd Diverticulosis 10/08/2023 ESRD on hemodialysis ([facility]) ([facility]) 10/26/2019 Hemodialysis patient ([facility]) ([facility]) HTN (hypertension) 12/01/2022 Hypertension IgA nephropathy IgA nephropathy determined by biopsy of kidney 10/26/2019 Missed vaccination due to patient refusal 10/08/2023 Has a number of non-scientific based beliefs which interfere with his understanding and acceptance of the medical benefit of vaccination. Nonrheumatic aortic valve stenosis 10/08/2023 Paroxysmal A-fib ([facility]) ([facility]) 08/18/2023 Tobacco abuse 10/08/2023 Cosigned by Fatuma [...] Klebsiella pneumonia with lung abscess presented to [facility] ED with worsening shortness of breath. He [...] MD Division of Hospital Medicine Inpatient Medical Services/[facility] [1] Past Medical History: Diagnosis Date Acute renal failure (ARF) ([facility]) 10/19/2019 Anemia 12/30/2021 Calcification of abdominal aorta ([facility]) 10/08/202309/[address] abd Diverticulosis 10/08/2023 ESRD on hemodialysis ([facility]) ([facility]) 10/26/2019 Hemodialysis patient ([facility]) ([facility]) HTN (hypertension) 12/01/2022 Hypertension IgA nephropathy IgA nephropathy determined by biopsy of kidney 10/26/2019 Missed vaccination due to patient refusal 10/08/2023 Has a number of non-scientific based beliefs which interfere with his understanding and acceptance of the medical benefit of vaccination. Nonrheumatic aortic valve stenosis 10/08/2023 Paroxysmal A-fib ([facility]) ([facility]) 08/18/2023 Tobacco abuse 10/08/2023 [2] Lidocaine, 1 [...] History: Diagnosis Date Acute renal failure (ARF) ([facility]) 10/19/2019 Anemia 12/30/2021 Calcification of abdominal aorta ([facility]) 10/08/202309/[address] abd Diverticulosis 10/08/2023 ESRD on hemodialysis ([facility]) ([facility]) 10/26/2019 Hemodialysis patient ([facility]) ([facility]) HTN (hypertension) 12/01/2022 Hypertension IgA nephropathy IgA nephropathy determined by biopsy of kidney 10/26/2019 Missed vaccination due to patient refusal 10/08/2023 Has a number of non-scientific based beliefs which interfere with his understanding and acceptance of the medical benefit of vaccination. Nonrheumatic aortic valve stenosis 10/08/2023 Paroxysmal A-fib ([facility]) ([facility]) 08/18/2023 Tobacco abuse 10/08/2023 [place] Anticoagulation Management [facility] (SAILAJA) Inpatient Warfarin [...] candidate 2025, staffed with Fatuma Odonnell PharmD, [facility] SAILAJA is available daily [phone] via [employer]. If no response on [employer] Chat then please page [phone]. [1] Past Medical History: Diagnosis Date Acute renal failure (ARF) (HCC) 10/19/2019 Anemia 12/30/2021 Calcification of abdominal aorta ([facility]) 10/08/202309/[address] abd Diverticulosis 10/08/2023 ESRD on hemodialysis ([facility]) ([facility]) 10/26/2019 Hemodialysis patient ([facility]) ([facility]) HTN (hypertension) 12/01/2022 Hypertension IgA nephropathy IgA nephropathy determined by biopsy of kidney 10/26/2019 Missed vaccination due to patient refusal 10/08/2023 Has a number of non-scientific based beliefs which interfere with his understanding and acceptance of the medical benefit of vaccination. Nonrheumatic aortic valve stenosis 10/08/2023 Paroxysmal A-fib ([facility]) ([facility]) 08/18/2023 Tobacco abuse 10/08/2023 Cosigned by Fatuma Odonnell RPh at 03/19/2025 2:39 PM EDT Images from the original note were not included. [facility]/NPWT Progress Note Jun Snyder AGE: [...] to follow Recommend to follow up at [facility] wound care center after hospital discharge. Any questions or concerns please secure chat "[facility] wound/ostomy". Thank you for the [...] History: Diagnosis Date Acute renal failure (ARF) ([facility]) 10/19/2019 Anemia 12/30/2021 Calcification of abdominal aorta ([facility]) 10/08/202309/[address] abd Diverticulosis 10/08/2023 ESRD on hemodialysis ([facility]) ([facility]) 10/26/2019 Hemodialysis patient ([facility]) ([facility]) HTN (hypertension) 12/01/2022 Hypertension IgA nephropathy IgA nephropathy determined by biopsy of kidney 10/26/2019 Missed vaccination due to patient refusal 10/08/2023 Has a number of non-scientific based beliefs which interfere with his understanding and acceptance of the medical benefit of vaccination. Nonrheumatic aortic valve stenosis 10/08/2023 Paroxysmal A-fib ([facility]) ([facility]) 08/18/2023 Tobacco abuse 10/08/2023 [2] Past Surgical History: Procedure Laterality Date APPENDECTOMY CARDIAC CATHETERIZATION N/A 10/09/2024 Performed by Bob Watson MD at [facility] Cardiac Cath/EP Lab CARDIAC CATHETERIZATION Bilateral 11/01/2024 Performed by Bob Watson MD at [facility] Cardiac Cath/EP Lab CARDIAC CATHETERIZATION N/A 11/01/2024 Performed by Bob Watson MD at [facility] Cardiac Cath/EP Lab COLONOSCOPY N/A 01/24/2025 Performed by Chadd Davis MD at [facility] ENDOSCOPY FISTULAGRAM (HISTORICAL) Left 09/15/2021 LEFT UPPER ARM HX AV FISTULA CREATION IR EMBOLIZATION 10/14/2024 IR EMBOLIZATION 10/14/2024 [facility] SPECIAL PROCEDURES IR FISTULAGRAM 08/07/2022 [...] Admit Date: 03/13/2025 PCP: Leilani Troncoso Room#: [id number] A Chief Complaint Patient presents with Shortness of Breath Pt arrived from [facility] via EMS. Pt was starting dialysis and [...] Klebsiella pneumonia with lung abscess presented to [facility] ED with worsening shortness of breath. He [...] in upper abdomen He was transferred from [facility] ED to [facility] due to bed availability Nephrology consulted, seen [...] Date -1 to 2 days - Location -[facility] - Pending the following -clinical course, subtherapeutic INR, on bridging with heparin drip Total time spent (which include face to face and non face to face encounters) : 38.5 minutes Extended Emergency Contact Information Primary Emergency Contact: Omar Snyder Mobile Relation: Child Secondary Emergency Contact: Toma Mcneil Mobile Relation: Partner Barb Dawkins MD Division of Hospital Medicine Inpatient Medical Services/[facility] [1] Past Medical History: Diagnosis Date Acute renal failure (ARF) ([facility]) 10/19/2019 Anemia 12/30/2021 Calcification of abdominal aorta ([facility]) 10/08/202309/[address] abd Diverticulosis 10/08/2023 ESRD on hemodialysis ([facility]) ([facility]) 10/26/2019 Hemodialysis patient ([facility]) ([facility]) HTN (hypertension) 12/01/2022 Hypertension IgA nephropathy IgA nephropathy determined by biopsy of kidney 10/26/2019 Missed vaccination due to patient refusal 10/08/2023 Has a number of non-scientific based beliefs which interfere with his understanding and acceptance of the medical benefit of vaccination. Nonrheumatic aortic valve stenosis 10/08/2023 Paroxysmal A-fib ([facility]) ([facility]) 08/18/2023 Tobacco abuse 10/08/2023 [2] Lidocaine, 1 [...] History: Diagnosis Date Acute renal failure (ARF) ([facility]) 10/19/2019 Anemia 12/30/2021 Calcification of abdominal aorta ([facility]) 10/08/202309/[address] abd Diverticulosis 10/08/2023 ESRD on hemodialysis ([facility]) ([facility]) 10/26/2019 Hemodialysis patient ([facility]) ([facility]) HTN (hypertension) 12/01/2022 Hypertension IgA nephropathy IgA nephropathy determined by biopsy of kidney 10/26/2019 Missed vaccination due to patient refusal 10/08/2023 Has a number of non-scientific based beliefs which interfere with his understanding and acceptance of the medical benefit of vaccination. Nonrheumatic aortic valve stenosis 10/08/2023 Paroxysmal A-fib ([facility]) ([facility]) 08/18/2023 Tobacco abuse 10/08/2023 Nephrology Progress Note [...] sacral wound. Wellington Nicole MD' Please call [phone] or message me through [employer] with any questions or concerns. Nephrology Progress [...] sacral wound. Wellington Nicole MD' Please call [phone] or message me through [employer] with any questions or concerns. Hospitalist Progress Note Subjective: Admit Date: 03/13/2025 PCP: Leilani Troncoso Room#: [id number] A Chief Complaint Patient presents with Shortness of Breath Pt arrived from [facility] via EMS. Pt was starting dialysis and [...] Klebsiella pneumonia with lung abscess presented to [facility] ED with worsening shortness of breath. He [...] in upper abdomen He was transferred from [facility] to [facility] due to bed availability Nephrology consulted, seen [...] Intake/Output Summary (Last 24 hours) at 03/18/2025 4719 Last data filed at 03/17/2025 1948 Gross per 24 hour Intake 520 ml Output 100 ml Net 420 ml LABS: CBC: Recent Labs 03/16/2515403/17/254603/18/25158 WBC 7.0 6.7 7.6 RBC 3.02* 3.31* 3.03* HGB 9.1* 10.0* 9.1* HCT 30.2* 33.8* 30.4* MCV 100.0* 102.1* 100.3* RDW 21.2* 21.2* 20.6* PLT 372 407 333 BMP: Recent Labs 03/16/2515403/17/254603/18/25 015 NA 139 141 [...] Toma Mcneil Mobile Relation: Partner [employer] Annamarie Dawknis MD Division of Hospital Medicine Inpatient Medical Services/[facility] [1] Past Medical History: Diagnosis Date Acute renal failure (ARF) ([facility]) 10/19/2019 Anemia 12/30/2021 Calcification of abdominal aorta ([facility]) 10/08/202309/[address] abd Diverticulosis 10/08/2023 ESRD on hemodialysis ([facility]) ([facility]) 10/26/2019 Hemodialysis patient ([facility]) ([facility]) HTN (hypertension) 12/01/2022 Hypertension IgA nephropathy IgA nephropathy determined by biopsy of kidney 10/26/2019 Missed vaccination due to patient refusal 10/08/2023 Has a number of non-scientific based beliefs which interfere with his understanding and acceptance of the medical benefit of vaccination. Nonrheumatic aortic valve stenosis 10/08/2023 Paroxysmal A-fib ([facility]) ([facility]) 08/18/2023 Tobacco abuse 10/08/2023 [2] Lidocaine, 1 [...] History: Diagnosis Date Acute renal failure (ARF) ([facility]) 10/19/2019 Anemia 12/30/2021 Calcification of abdominal aorta ([facility]) 10/08/202309/[address] abd Diverticulosis 10/08/2023 ESRD on hemodialysis ([facility]) ([facility]) 10/26/2019 Hemodialysis patient ([facility]) ([facility]) HTN (hypertension) 12/01/2022 Hypertension IgA nephropathy IgA nephropathy determined by biopsy of kidney 10/26/2019 Missed vaccination due to patient refusal 10/08/2023 Has a number of non-scientific based beliefs which interfere with his understanding and acceptance of the medical benefit of vaccination. Nonrheumatic aortic valve stenosis 10/08/2023 Paroxysmal A-fib ([facility]) ([facility]) 08/18/2023 Tobacco abuse 10/08/2023 [facility] Anticoagulation Management Service (SAILAJA) Inpatient [...] RPh, PharmD, BCPS SAILAJA is available daily [phone] via [employer]. If no response on Epic Chat then please page [phone]. [1] Past Medical History: Diagnosis Date Acute renal failure (ARF) ([facility]) 10/19/2019 Anemia 12/30/2021 Calcification of abdominal aorta ([facility]) 10/08/202309/[address] abd Diverticulosis 10/08/2023 ESRD on hemodialysis ([facility]) ([facility]) 10/26/2019 Hemodialysis patient ([facility] ([facility]) HTN (hypertension) 12/01/2022 Hypertension IgA nephropathy IgA nephropathy determined by biopsy of kidney 10/26/2019 Missed vaccination due to patient refusal 10/08/2023 Has a number of non-scientific based beliefs which interfere with his understanding and acceptance of the medical benefit of vaccination. Nonrheumatic aortic valve stenosis 10/08/2023 Paroxysmal A-fib ([facility]) ([facility]) 08/18/2023 Tobacco abuse 10/08/2023 Hospitalist Progress Note Subjective: Admit Date: 03/13/2025 PCP: Leilani Troncoso Room#: [id number] A Chief Complaint Patient presents with Shortness of Breath Pt arrived [facility] via EMS. Pt was starting dialysis and [...] Klebsiella pneumonia with lung abscess presented to [facility] ED with worsening shortness of breath. He [...] in upper abdomen He was transferred from [facility] to [facility] due to bed availability Nephrology consulted, seen [...] [phone] BMP: Recent Labs 03/15/254 03/16/25 0155 03/17/2546 NA 139 139 141 K [...] MD Division of Hospital Medicine Inpatient Medical Services/[facility] [1] Past Medical History: Diagnosis Date Acute renal failure (ARF) ([facility]) 10/19/2019 Anemia 12/30/2021 Calcification of abdominal aorta (HCC) 10/08/202309/[address] abd Diverticulosis 10/08/2023 ESRD on hemodialysis ([facility]) ([facility]) 10/26/2019 [facility] ([facility]) HTN (hypertension) 12/01/2022 Hypertension IgA nephropathy IgA nephropathy determined by biopsy of kidney 10/26/2019 Missed vaccination due to patient refusal 10/08/2023 Has a number of non-scientific based beliefs which interfere with his understanding and acceptance of the medical benefit of vaccination. Nonrheumatic aortic valve stenosis 10/08/2023 Paroxysmal A-fib ([facility]) ([facility]) 08/18/2023 Tobacco abuse 10/08/2023 [2] Lidocaine, 1 patch, Topical, Daily metoprolol tartrate, 25 mg, Oral, q6h pantoprazole, 40 mg, Oral, BID AC sevelamer carbonate, 800 mg, Oral, TID WC sodium zirconium cyclosilicate, 5 g, Oral, Daily [3] PRN medications: acetaminophen OR acetaminophen, ipratropium-albuterol, melatonin, ondansetron ODT OR ondansetron, polyethylene glycol (PEG) 3350 [4] [5] Past Medical History: Diagnosis Date Acute renal failure (ARF) ([facility]) 10/19/2019 Anemia 12/30/2021 Calcification of abdominal aorta ([facility]) 10/08/202309/[address] abd Diverticulosis 10/08/2023 ESRD on hemodialysis ([facility]) ([facility]) 10/26/2019 Hemodialysis patient ([facility]) ([facility]) HTN (hypertension) 12/01/2022 Hypertension IgA nephropathy IgA nephropathy determined by biopsy of kidney 10/26/2019 Missed vaccination due to patient refusal 10/08/2023 Has a number of non-scientific based beliefs which interfere with his understanding and acceptance of the medical benefit of vaccination. Nonrheumatic aortic valve stenosis 10/08/2023 Paroxysmal A-fib ([facility]) ([facility]) 08/18/2023 Tobacco abuse 10/08/2023 Nephrology Progress Note [...] Labs: Recent Labs 03/15/254 03/16/25 0155 03/17/25 004 WBC 6.7 7.0 6.7 HGB 9.2* 9.1* 10.0* HCT 30.1* 30.2* 33.8* MCV 99.7* 100.0* 102.1* PLT [phone] Recent Labs 03/15/2543303/16/255 03/17/25 0047 NA 139 139 141 K [...] sacral wound. Wellington Nicole MD' Please call [phone] or message me through [employer] with any questions or concerns. [facility] [...] [facility], PharmD SAILAJA is available daily [phone] via [employer] Chat. If no response on [employer] Chat then please page [phone]. [1] Past Medical History: Diagnosis Date Acute renal failure (ARF) (HCC) 10/19/2019 Anemia 12/30/2021 Calcification of abdominal aorta (HCC) 10/08/202309/[address] abd Diverticulosis 10/08/2023 ESRD on hemodialysis ([facility] ([facility]) 10/26/2019 Hemodialysis patient ([facility]) ([facility]) HTN (hypertension) 12/01/2022 Hypertension IgA nephropathy IgA nephropathy determined by biopsy of kidney 10/26/2019 Missed vaccination due to patient refusal 10/08/2023 Has a number of non-scientific based beliefs which interfere with his understanding and acceptance of the medical benefit of vaccination. Nonrheumatic aortic valve stenosis 10/08/2023 Paroxysmal A-fib ([facility]) ([facility]) 08/18/2023 Tobacco abuse 10/08/2023 Images from the original note were not included. OCCUPATIONAL THERAPY [facility] Initial Evaluation Name/MRN: Jair Snyder ([id number]) Evaluation Date: 03/16/2025 Date of : 1965 Admission Date: 03/13/2025 8:18 AM Age: 59 y.o. Room/Bed: [facility] A Discharge Recommendation: Nursing Home Facility Assessment [...] Problem List Diagnosis Date Noted Moderate malnutrition ([facility] ([facility]) 03/14/2025 SOB (shortness of breath) 03/13/2025 Severe malnutrition ([facility] ([facility]) 02/21/2025 Hemoptysis 02/20/2025 Complication of tracheostomy ([facility]) ([facility]) 01/19/2025 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 Acute respiratory failure with hypoxia ([facility]) [J96.01] 01/08/2025 Tracheostomy care ([facility]) [Z43.0] 01/08/2025 Pulmonary embolism ([facility]) 01/08/2025 Sacral osteomyelitis ([facility]) ([facility]) 01/03/2025 Pneumonia of both lungs due to methicillin susceptible Staphylococcus aureus (MSSA) ([facility]) 01/01/2025 Leukocytosis 12/30/2024 Decubitus ulcer of sacral region, unstageable ([facility]) 12/30/2024 Peritonitis due to fungus ([facility]) 11/30/2024 History of abdominal surgery 11/30/2024 Leg DVT (deep venous thromboembolism), acute, left ([facility]) 11/30/2024 Ischemic ulcer of toe of left foot, limited to breakdown of skin ([facility]) 11/30/2024 Tracheostomy dependence ([facility]) 11/30/2024 Pleural effusion 11/28/2024 Gastric ulceration 2024 Atrial flutter, unspecified type ([facility]) 10/03/2024 RSV (acute bronchiolitis due to respiratory syncytial virus) 10/03/2024 Diverticulosis 10/08/2023 Nonrheumatic aortic valve stenosis 10/08/2023 Calcification of abdominal aorta ([facility]) 10/08/2023 Missed vaccination due to patient refusal 10/08/2023 Tobacco abuse 10/08/2023 Alcohol use disorder in remission 10/08/2023 Paroxysmal A-fib ([facility] [facility] ([facility]) 08/18/2023 HTN (hypertension) 12/01/2022 ESRD on hemodialysis ([facility]) ([facility]) 10/26/2019 IgA nephropathy determined by biopsy of kidney 10/26/2019 BRBPR (bright red blood per rectum) 01/19/2025 Aortic stenosis 10/03/2024 Upper GI bleed 10/03/2024 S/P AVR 10/03/2024 Acute hypoxic respiratory failure ([facility]) 10/03/2024 Acute encephalopathy 10/03/2024 Pneumoperitoneum 10/03/2024 Anemia [...] of Care supervision is transferred to a [facility] Therapy Services Occupational Therapist. Goals and/or treatment plan was established in collaboration with patient/family/other representatives. [1] Past Medical History: Diagnosis Date Acute renal failure (ARF) ([facility]) 10/19/2019 Anemia 12/30/2021 Calcification of abdominal aorta ([facility]) 10/08/202309/[address] abd Diverticulosis 10/08/2023 ESRD on hemodialysis ([facility] ([facility]) 10/26/2019 Hemodialysis patient ([facility]) ([facility]) HTN (hypertension) 12/01/2022 Hypertension IgA nephropathy IgA nephropathy determined by biopsy of kidney 10/26/2019 Missed vaccination due to patient refusal 10/08/2023 Has a number of non-scientific based beliefs which interfere with his understanding and acceptance of the medical benefit of vaccination. Nonrheumatic aortic valve stenosis 10/08/2023 Paroxysmal A-fib ([facility] ([facility]) 08/18/2023 Tobacco abuse 10/08/2023 [2] Past Surgical History: Procedure Laterality Date APPENDECTOMY CARDIAC CATHETERIZATION N/A 10/09/2024 Performed by Bob Watson MD at [facility] Cardiac Cath/EP Lab CARDIAC CATHETERIZATION Bilateral 11/01/2024 Performed by Bob Watson MD at [facility] Cardiac Cath/EP Lab CARDIAC CATHETERIZATION N/A 11/01/2024 Performed by Bob Watson MD at [facility] Cardiac Cath/EP Lab COLONOSCOPY N/A 01/24/2025 Performed by Chadd Davis MD at [facility] ENDOSCOPY FISTULAGRAM (HISTORICAL) Left 09/15/2021 LEFT UPPER ARM HX AV FISTULA CREATION IR EMBOLIZATION 10/14/2024 IR EMBOLIZATION 10/14/2024 [facility] SPECIAL PROCEDURES IR FISTULAGRAM 08/07/2022 IR FISTULAGRAM 08/07/2022 [facility] IR IMAGING TONSILLECTOMY (HISTORICAL) Hospitalist Progress Note Subjective: Admit Date: 03/13/2025 PCP: Leilani Troncoso Room#: [id number]/[id number] A Chief Complaint Patient presents with Shortness of Breath Pt [facility] via [facility]. Pt was starting dialysis and [...] Klebsiella pneumonia with lung abscess presented to [facility] ED with worsening shortness of breath. He [...] in upper abdomen He was transferred from [facility] ED to [facility] due to bed availability Nephrology consulted, seen [...] 194* PROT 7.6 7.3 PT/INR: Recent Labs 03/15/254 03/16/25 0155 PROTIME 17.9* 17.3* INR 1.7* [...] Date -1 to 2 days - Location -[facility] - Pending the following -clinical course Total time spent (which include face to face and non face to face encounters) : 36 minutes Extended Emergency Contact Information Primary Emergency Contact: Omar Snyder Mobile Relation: Child Secondary Emergency Contact: Toma Mcneil Mobile Relation: Partner [employer] Annamarie Dawkins MD Division of Hospital Medicine Inpatient Medical Services/[facility] [1] Past Medical History: Diagnosis Date Acute renal failure (ARF) ([facility]) 10/19/2019 Anemia 12/30/2021 Calcification of abdominal aorta ([facility]) 10/08/202309/[address] abd Diverticulosis 10/08/2023 ESRD on hemodialysis ([facility]) ([facility]) 10/26/2019 Hemodialysis patient ([facility]) ([facility]) HTN (hypertension) 12/01/2022 Hypertension IgA nephropathy IgA nephropathy determined by biopsy of kidney 10/26/2019 Missed vaccination due to patient refusal 10/08/2023 Has a number of non-scientific based beliefs which interfere with his understanding and acceptance of the medical benefit of vaccination. Nonrheumatic aortic valve stenosis 10/08/2023 Paroxysmal A-fib ([facility]) ([facility]) 08/18/2023 Tobacco abuse 10/08/2023 [2] Lidocaine, 1 [...] History: Diagnosis Date Acute renal failure (ARF) ([facility]) 10/19/2019 Anemia 12/30/2021 Calcification of abdominal aorta ([facility]) 10/08/202309/[address] abd Diverticulosis 10/08/2023 ESRD on hemodialysis ([facility]) ([facility]) 10/26/2019 Hemodialysis patient ([facility]) ([facility]) HTN (hypertension) 12/01/2022 Hypertension IgA nephropathy IgA [...] any questions or concerns Bree Molina APRN ASSOCIATE A-G WIRE TWISTER [facility] [place] [phone] Pt seen and examined independently by me. I reviewed with ELECTRICAL APPLIANCE REPAIRER-ASSOCIATE the medical history and the findings on physical examination. I discussed the patient s diagnosis and concur with the treatment plan as documented in his note. Please call [phone] or message me through [employer] with any questions or concerns. Images from the original note were not included. [facility] Wound VAC Progress Note Jun Snyder AGE: [...] pain with IV pain medication, per staff respiratory therapist, prior to wound VAC dressing change. 1 [...] to follow Recommend to follow up at [facility] wound care center after hospital discharge. [...] 10/19/2019 Anemia 12/30/2021 Calcification of abdominal aorta ([facility]) 10/08/202309/[address] abd Diverticulosis 10/08/2023 ESRD on hemodialysis ([facility]) ([facility]) 10/26/2019 Hemodialysis patient ([facility]) ([facility]) HTN (hypertension) 12/01/2022 Hypertension IgA nephropathy IgA nephropathy determined by biopsy of kidney 10/26/2019 Missed vaccination due to patient refusal 10/08/2023 Has a number of non-scientific based beliefs which interfere with his understanding and acceptance of the medical benefit of vaccination. Nonrheumatic aortic valve stenosis 10/08/2023 Paroxysmal A-fib ([facility]) ([facility]) 08/18/2023 Tobacco abuse 10/08/2023 [2] Past Surgical History: Procedure Laterality Date APPENDECTOMY CARDIAC CATHETERIZATION N/A 10/09/2024 Performed by Bob Watson MD at [facility] Cardiac Cath/EP Lab CARDIAC CATHETERIZATION Bilateral 11/01/2024 Performed by Bob Watson MD at [facility] Cardiac Cath/EP Lab CARDIAC CATHETERIZATION N/A 11/01/2024 Performed by Bob Watson MD at [facility] Cardiac Cath/EP Lab COLONOSCOPY N/A 01/24/2025 Performed by Chadd Davis MD at [facility] ENDOSCOPY FISTULAGRAM (HISTORICAL) Left 09/15/2021 LEFT UPPER ARM HX AV FISTULA CREATION IR EMBOLIZATION 10/14/2024 IR EMBOLIZATION 10/14/2024 [facility] SPECIAL PROCEDURES IR FISTULAGRAM 08/07/2022 [...] Gill DO at 03/19/2025 4:[address] [facility] Anticoagulation Management Service ([facility]) Inpatient [...] 30.2* PLT [phone] Recent Labs 03/16/25 015 INR 1.7* Date INR Dose 03/16 1.7 2.5 mg 03/15 1.7 2.5 mg 03/14 --- 1.5mg 03/13 1.7 3mg Assessment/Plan: 1. Subtherapeutic INR yesterday, received boost dose. Will give 2.5mg today--higher than home dose 2. Monitor for s/s of bleeding and drug interactions. Will adjust dose accordingly 3. Will facilitate f/u at [facility] upon discharge Kvng Dugan, LauraD 2024 Candidate [facility] is available daily [phone] via [employer] Chat. If no response on [employer] Chat then please page [phone]. [1] Past Medical History: Diagnosis Date Acute renal failure (ARF) ([facility]) 10/19/2019 Anemia 12/30/2021 Calcification of abdominal aorta ([facility]) 10/08/202309/[address] abd Diverticulosis 10/08/2023 ESRD on hemodialysis ([facility] ([facility]) 10/26/2019 Hemodialysis patient ([facility]) ([facility]) HTN (hypertension) 12/01/2022 Hypertension IgA nephropathy IgA nephropathy determined by biopsy of kidney 10/26/2019 Missed vaccination due to patient refusal 10/08/2023 Has a number of non-scientific based beliefs which interfere with his understanding and acceptance of the medical benefit of vaccination. Nonrheumatic aortic valve stenosis 10/08/2023 Paroxysmal A-fib ([facility]) ([facility]) 08/18/2023 Tobacco abuse 10/08/2023 Cosigned by Tiffanie Dial RP at 03/16/2025 10:57 AM EDT Patient currently off unit, will attempt smoking cessation counseling at a later date. Hospitalist Progress Note Subjective: Admit Date: 03/13/2025 PCP: Leilani Troncoso Room#: [id number] A Chief Complaint Patient presents with Shortness of Breath Pt arrived from [facility] via EMS. Pt was starting dialysis and feeling short of breath dialysis was stopped and sent to the hospital to be evaluated. Brief Hospital course: uJn is a 59 y.o. male with past medical history of hypertension, IgA nephropathy, ESRD on HD, CAD, history of CABG, history of intracranial bleed, paroxysmal A-fib aortic stenosis, s/p mechanical valve replacement recent admission here from 02/20-03/05 for hemoptysis due to Klebsiella pneumonia with lung abscess presented to [facility] ED with worsening shortness of breath. He [...] in upper abdomen He was transferred from [facility] to [facility] due to bed availability Nephrology consulted, seen [...] MD Division of Hospital Medicine Inpatient Medical Services/[facility] [1] Past Medical History: Diagnosis Date Acute renal failure (ARF) ([facility]) 10/19/2019 Anemia 12/30/2021 Calcification of abdominal aorta ([facility]) 10/08/202309/[address] abd Diverticulosis 10/08/2023 ESRD on hemodialysis ([facility] ([facility]) 10/26/2019 Hemodialysis patient ([facility] ([facility]) HTN (hypertension) 12/01/2022 Hypertension IgA nephropathy IgA nephropathy determined by biopsy of kidney 10/26/2019 Missed vaccination due to patient refusal 10/08/2023 Has a number of non-scientific based beliefs which interfere with his understanding and acceptance of the medical benefit of vaccination. Nonrheumatic aortic valve stenosis 10/08/2023 Paroxysmal A-fib ([facility]) ([facility]) 08/18/2023 Tobacco abuse 10/08/2023 [2] Lidocaine, 1 [...] History: Diagnosis Date Acute renal failure (ARF) ([facility]) 10/19/2019 Anemia 12/30/2021 Calcification of abdominal aorta ([facility]) 10/08/202309/[address] abd Diverticulosis 10/08/2023 ESRD on hemodialysis ([facility]) ([facility]) 10/26/2019 Hemodialysis patient ([facility]) ([facility]) HTN (hypertension) 12/01/2022 Hypertension IgA nephropathy IgA nephropathy determined by biopsy of kidney 10/26/2019 Missed vaccination due to patient refusal 10/08/2023 Has a number of non-scientific based beliefs which interfere with his understanding and acceptance of the medical benefit of vaccination. Nonrheumatic aortic valve stenosis 10/08/2023 Paroxysmal A-fib ([facility]) ([facility]) 08/18/2023 Tobacco abuse 10/08/2023 Nephrology Progress Note [...] any questions or concerns Bree Molina APRN ASSOCIATE A-G WIRE TWISTER [facility] [place] [phone] Pt seen and examined independently by me. I reviewed with BRYANT the medical history and the findings on physical examination. I discussed the patient s diagnosis and concur with the treatment plan as documented in his note. Please call [phone] or message me through [employer] with any questions or concerns. [facility] Anticoagulation Management Service ([facility]) Inpatient [...] dose accordingly 3. Will facilitate f/u at [facility] upon discharge Kvng Dugan, Natali 2024 Candidate [facility] is available daily [phone] via [employer] Chat. If no response on [employer] Chat then please page [phone]. [1] Past Medical History: Diagnosis Date Acute renal failure (ARF) (HCC) 10/19/2019 Anemia 12/30/2021 Calcification of abdominal aorta (HCC) 10/08/202309/[address] abd Diverticulosis 10/08/2023 ESRD on hemodialysis (CMS/HCC) (HCC) 10/26/2019 Hemodialysis patient ([facility]) ([facility]) HTN (hypertension) 12/01/2022 Hypertension IgA nephropathy IgA nephropathy determined by biopsy of kidney 10/26/2019 Missed vaccination due to patient refusal 10/08/2023 Has a number of non-scientific based beliefs which interfere with his understanding and acceptance of the medical benefit of vaccination. Nonrheumatic aortic valve stenosis 10/08/2023 Paroxysmal A-fib ([facility]) ([facility]) 08/18/2023 Tobacco abuse 10/08/2023 Cosigned by Tiffanie Dial RPh at 03/15/2025 1:17 PM EDT Images from the original note were not included. [facility] Wound [facility] Progress Note Jun Snyder AGE: [...] to follow Recommend to follow up at [facility] wound care center after hospital discharge. [...] History: Diagnosis Date Acute renal failure (ARF) ([facility]) 10/19/2019 Anemia 12/30/2021 Calcification of abdominal aorta ([facility]) 10/08/202309/[address] abd Diverticulosis 10/08/2023 ESRD on hemodialysis ([facility] ([facility]) 10/26/2019 Hemodialysis patient ([facility]) ([facility]) HTN (hypertension) 12/01/2022 Hypertension IgA nephropathy IgA nephropathy determined by biopsy of kidney 10/26/2019 Missed vaccination due to patient refusal 10/08/2023 Has a number of non-scientific based beliefs which interfere with his understanding and acceptance of the medical benefit of vaccination. Nonrheumatic aortic valve stenosis 10/08/2023 Paroxysmal A-fib ([facility]) ([facility]) 08/18/2023 Tobacco abuse 10/08/2023 [2] Past Surgical History: Procedure Laterality Date APPENDECTOMY CARDIAC CATHETERIZATION N/A 10/09/2024 Performed by Bob Watson MD at [facility] Cardiac Cath/EP Lab CARDIAC CATHETERIZATION Bilateral 11/01/2024 Performed by Bob Watson MD at [facility] Cardiac Cath/EP Lab CARDIAC CATHETERIZATION N/A 11/01/2024 Performed by Bob Watson MD at [facility] Cardiac Cath/EP Lab COLONOSCOPY N/A 01/24/2025 Performed by Chadd Davis MD at [facility] ENDOSCOPY FISTULAGRAM (HISTORICAL) Left 09/15/2021 [...] original note were not included. PHYSICAL THERAPY [facility] Initial Evaluation Name/MRN: Jair Snyder ([id number]) Evaluation Date: 03/14/2025 Date of : 1965 Admission Date: 03/13/2025 8:18 AM Age: 59 y.o. 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 Acute respiratory failure with hypoxia ([facility]) [J96.01] 01/08/2025 Tracheostomy care ([facility]) [Z43.0] 01/08/2025 Pulmonary embolism ([facility]) 01/08/2025 Sacral osteomyelitis (CMS/HCC) ([facility]) 01/03/2025 Pneumonia of both lungs due to methicillin susceptible Staphylococcus aureus (MSSA) ([facility]) 01/01/2025 Leukocytosis 12/30/2024 Decubitus ulcer of sacral region, unstageable ([facility]) 12/30/2024 Peritonitis due to fungus ([facility]) 11/30/2024 History of abdominal surgery 11/30/2024 Leg DVT (deep venous thromboembolism), acute, left ([facility]) 11/30/2024 Ischemic ulcer of toe of left foot, limited to breakdown of skin ([facility]) 11/30/2024 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[facility]) 11/30/2024 Pleural effusion 11/28/2024 Gastric ulceration 2024 Atrial flutter, unspecified type ([facility]) 10/03/2024 RSV (acute bronchiolitis due to respiratory syncytial virus) 10/03/2024 Diverticulosis 10/08/2023 Nonrheumatic aortic valve stenosis 10/08/2023 Calcification of abdominal aorta ([facility]) 10/08/2023 Missed vaccination due to patient refusal 10/08/2023 Tobacco abuse 10/08/2023 Alcohol use disorder in remission 10/08/2023 Paroxysmal A-fib ([facility]) ([facility]) 08/18/2023 HTN (hypertension) 12/01/2022 ESRD on hemodialysis ([facility]) ([facility]) 10/26/2019 IgA nephropathy determined by biopsy of kidney 10/26/2019 BRBPR (bright red blood per rectum) 01/19/2025 Aortic stenosis 10/03/2024 Upper GI bleed 10/03/2024 S/P AVR 10/03/2024 Acute hypoxic respiratory failure ([facility]) 10/03/2024 Acute encephalopathy 10/03/2024 Pneumoperitoneum 10/03/2024 Anemia [...] awareness. Social/Functional History Pt has been at [facility] for rehab for the past ~1 [...] of Care supervision is transferred to a [facility] Therapy Services Physical Therapist. Goals and/or treatment plan was established in collaboration with patient/family/other representatives. [1] Past Medical History: Diagnosis Date Acute renal failure (ARF) ([facility]) 10/19/2019 Anemia 12/30/2021 Calcification of abdominal aorta ([facility]) 10/08/202309/[address] abd Diverticulosis 10/08/2023 ESRD on hemodialysis ([facility]) ([facility]) 10/26/2019 Hemodialysis patient ([facility]) ([facility]) HTN (hypertension) 12/01/2022 Hypertension IgA nephropathy IgA nephropathy determined by biopsy of kidney 10/26/2019 Missed vaccination due to patient refusal 10/08/2023 Has a number of non-scientific based beliefs which interfere with his understanding and acceptance of the medical benefit of vaccination. Nonrheumatic aortic valve stenosis 10/08/2023 Paroxysmal A-fib ([facility]) ([facility]) 08/18/2023 Tobacco abuse 10/08/2023 [2] Past Surgical History: Procedure Laterality Date APPENDECTOMY CARDIAC CATHETERIZATION N/A 10/09/2024 Performed by Bob Watson MD at [facility] Cardiac Cath/EP Lab CARDIAC CATHETERIZATION Bilateral 11/01/2024 Performed by Bob Watson MD at [facility] Cardiac Cath/EP Lab CARDIAC CATHETERIZATION N/A 11/01/2024 Performed by Bob Watson MD at [facility] Cardiac Cath/EP Lab COLONOSCOPY N/A 01/24/2025 Performed by Chadd Davis MD at [facility] ENDOSCOPY FISTULAGRAM (HISTORICAL) Left 09/15/2021 LEFT UPPER ARM HX AV FISTULA CREATION IR EMBOLIZATION 10/14/2024 IR EMBOLIZATION 10/14/2024 [facility] SPECIAL PROCEDURES IR FISTULAGRAM 08/07/2022 IR FISTULAGRAM 08/07/2022 [facility] IR IMAGING TONSILLECTOMY (HISTORICAL) Hospitalist Progress Note Subjective: Admit Date: 03/13/2025 PCP: Leilani Troncoso Room#: [id number] A Chief Complaint Patient presents with Shortness of Breath [facility]. Pt was starting dialysis and [...] Klebsiella pneumonia with lung abscess presented to [facility] ED with worsening shortness of breath. He [...] in upper abdomen He was transferred from [facility] ED to [facility] due to bed availability Nephrology consulted, seen [...] MD Division of Hospital Medicine Inpatient Medical Services/[facility] [1] Past Medical History: Diagnosis Date Acute renal failure (ARF) ([facility]) 10/19/2019 Anemia 12/30/2021 Calcification of abdominal aorta ([facility]) 10/08/202309/[address] abd Diverticulosis 10/08/2023 ESRD on hemodialysis ([facility]) ([facility]) 10/26/2019 Hemodialysis patient ([facility]) ([facility]) HTN (hypertension) 12/01/2022 Hypertension IgA nephropathy IgA nephropathy determined by biopsy of kidney 10/26/2019 Missed vaccination due to patient refusal 10/08/2023 Has a number of non-scientific based beliefs which interfere with his understanding and acceptance of the medical benefit of vaccination. Nonrheumatic aortic valve stenosis 10/08/2023 Paroxysmal A-fib ([facility]) ([facility]) 08/18/2023 Tobacco abuse 10/08/2023 [2] Lidocaine, 1 patch, Topical, Daily metoprolol tartrate, 25 mg, Oral, BID pantoprazole, 40 mg, Oral, BID AC sevelamer carbonate, 800 mg, Oral, TID WC sodium zirconium cyclosilicate, 5 g, Oral, Daily [3] PRN medications: acetaminophen OR acetaminophen, ipratropium-albuterol, melatonin, ondansetron ODT OR ondansetron, polyethylene glycol (PEG) 3350 [4] [5] Past Medical History: Diagnosis Date Acute renal failure (ARF) ([facility]) 10/19/2019 Anemia 12/30/2021 Calcification of abdominal aorta ([facility]) 10/08/202309/[address] abd Diverticulosis 10/08/2023 ESRD on hemodialysis ([facility]) ([facility]) 10/26/2019 Hemodialysis patient ([facility]) ([facility]) HTN (hypertension) 12/01/2022 Hypertension IgA nephropathy IgA nephropathy determined by biopsy of kidney 10/26/2019 Missed vaccination due to patient refusal 10/08/2023 Has a number of non-scientific based beliefs which interfere with his understanding and acceptance of the medical benefit of vaccination. Nonrheumatic aortic valve stenosis 10/08/2023 Paroxysmal A-fib ([facility] [facility] [place] ([facility]) 08/18/2023 Tobacco abuse 10/08/2023 [facility] Anticoagulation Management Service (SAILAJA) Inpatient [...] dose accordingly 3. Will facilitate f/u at [facility] upon discharge Tiffanie Dial [facility], PharmD [facility] is available daily [phone] via [employer]. If no response on [employer] Chat then please page [phone]. [1] Past Medical History: Diagnosis Date Acute renal failure (ARF) ([facility]) 10/19/2019 Anemia 12/30/2021 Calcification of abdominal aorta ([facility]) 10/08/202309/[address] abd Diverticulosis 10/08/2023 ESRD on hemodialysis ([facility]) ([facility]) 10/26/2019 Hemodialysis patient ([facility]) ([facility]) HTN (hypertension) 12/01/2022 Hypertension IgA nephropathy IgA nephropathy determined by biopsy of kidney 10/26/2019 Missed vaccination due to patient refusal 10/08/2023 Has a number of non-scientific based beliefs which interfere with his understanding and acceptance of the medical benefit of vaccination. Nonrheumatic aortic valve stenosis 10/08/2023 Paroxysmal A-fib ([facility]) ([facility]) 08/18/2023 Tobacco abuse 10/08/2023 documented in this encounter [facility] 03-21-2025 Note Formatting of this n ote might be different from the original. Care Management Progress Note Short Medical why still here: Heparin gtt stopped today. . INR 2.9 today. Getting Coumadin. Refusing to work with therapy. They would like to skill him if able. Planned Discharge Disposition: Shelter/Residential Care Barriers/Today we still Wait: Administering IV medications, Test results (comment) Length of Stay (Days): 8 GMLOS: 3.9 [facility] 03-21-2025 Note Formatting of this n ote might be different from the original. Care Management Progress Note Short Medical why still here: Heparin gtt stopped today. . INR 2.9 today. Getting Coumadin. Refusing to work with therapy. They would like to skill him if able. Planned Discharge Disposition: Shelter/Residential Care Barriers/Today we still Wait: Administering IV medications, Test results (comment) Length of Stay (Days): 8 GMLOS: 3.9 [facility] 03-21-2025 Plan of care note [...] monitored and maintained or improved Outcome: Progressing [facility] 03-20-2025 Nurse Note Patient Name: Jun Snyder Patient : 1965 Acct: [id number] Date of Admission: 03/13/2025 Room/Bed: [facility] A Code Status: Full Code Allergies: Allergies[1] [...] Primary RN (First Initial, Last Name, Title): Alxe Dobbins RN Incapacitated Nurse Education Completed: marcelino [...] - Before each treatment: Dialysis Machine No.: [id number] RO Machine Number: [id number] Dialyzer Lot No.: [id number] Tubing Lot Number: [id number] All Connections Secure: Yes Venous Parameters Set: Yes Arterial Parameters Set: Yes NS Bag: Yes Saline Line Double Clamped: Yes Dialyzer: Nipro Prime Volume (mL): 200 mL RO Machine Number: [id number] RO Machine Log Sheet Completed: Yes Machine Alarm Self Test: Completed, Passed (03/20/25 1145) Air Foam Detector: Tested, Proper Function, pH Reading Extracorporeal Circuit Tested for Integrity: Yes Machine Conductivity: 13.8 Manual Conductivity: 13.8 Manual Ph: 7 Bleach Test (Neg): Yes Bath Temperature: 36 C (96.8 F) Conductivity Meter Serial #: [id number] Machine Functioning Alarm Free? Yes Dialysis Bath: [...] Other (Comment) (to inform patient arrival [facility] and need for orders) Provider [...] (HCC) HTN (hypertension) ESRD on hemodialysis (CMS/HCC) ([facility]) IgA nephropathy determined by biopsy of kidney Diverticulosis Nonrheumatic aortic valve stenosis Calcification of abdominal aorta (HCC) Missed vaccination due to patient refusal Tobacco abuse Alcohol use disorder in remission Atrial flutter, unspecified type (HCC) RSV (acute bronchiolitis due to respiratory syncytial virus) Aortic stenosis Upper GI bleed S/P AVR Acute hypoxic respiratory failure ([facility]) Acute encephalopathy Pneumoperitoneum Gastric ulceration Severe malnutrition (CMS/HCC) ([facility]) Pleural effusion Peritonitis due to fungus ([facility]) History of abdominal surgery Leg DVT (deep venous thromboembolism), acute, left (HCC) Ischemic ulcer of toe of left foot, limited to breakdown of skin ([facility]) Tracheostomy dependence ([facility]) Leukocytosis Decubitus ulcer of sacral region, unstageable ([facility]) Pneumonia of both lungs due to methicillin susceptible Staphylococcus aureus (MSSA) ([facility]) Sacral osteomyelitis (CMS/HCC) ([facility]) Acute respiratory failure with hypoxia ([facility]) [J96.01] Tracheostomy care ([facility]) [Z43.0] Pulmonary embolism ([facility]) 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 Care Management Progress Note Short Medical why still here: Heparin gtt bridging to Coumadin. INR 1.9 today Planned Discharge Disposition: Shelter/Residential Care Barriers/Today we still Wait: Clinical stability Length of Stay (Days): 7 GMLOS: 3.9 [facility] 03-20-2025 Note Formatting of this n ote might be different from the original. Care Management Progress Note Short Medical why still here: Heparin gtt bridging to Coumadin. INR 1.9 today Planned Discharge Disposition: Shelter/Residential Care Barriers/Today we still Wait: Clinical stability Length of Stay (Days): 7 GMLOS: 3.9 [facility] 03-20-2025 Plan of care note Problem: [...] monitored and maintained or improved Outcome: Progressing [facility] 03-19-2025 Note Formatting of this n ote might be different from the original. Care Management Progress Note Continues on a Heparin gtt. Trying to bridge to Coumadin. INR 1.6 today. When stable plan is to return to [facility].. . Length of Stay (Days): 6 GMLOS: 3.9 [facility] 03-19-2025 Note Formatting of this n ote might be different from the original. Care Management Progress Note Continues on a Heparin gtt. Trying to bridge to Coumadin. INR 1.6 today. When stable plan is to return to [facility].. . Length of Stay (Days): 6 GMLOS: 3.9 T [facility] 03-19-2025 Plan of care note Problem: Knowledge [...] monitored and maintained or improved Outcome: Progressing [facility] 03-19-2025 Plan of care note Problem: [...] monitored and maintained or improved Outcome: Progressing [facility] 03-19-2025 Nurse Note Wound vac suction failing-pt requesting wound vac removed for now. Black foam dressing removed and wound packed with saline-soaked gauze covered with DSD [facility] 03-19-2025 Nurse Note Pt adamantly refusing telemetry at this time, ripped off monitor and threw to the floor [facility] 03-18-2025 Note Problem: Pain - Adul t Goal: Verbalizes/displays adequate comfort level or baseline comfort level Outcome: Progressing Problem: Safety - Adult Goal: Free from fall injury Outcome: Progressing [facility] 03-18-2025 Plan of care note Problem: Pain - Adult Goal: Verbalizes/displays adequate comfort level or baseline comfort level Outcome: Progressing Problem: Safety - Adult Goal: Free from fall injury Outcome: Progressing [facility] 03-17-2025 Plan of care note [...] monitored and maintained or improved Outcome: Progressing [facility] 03-17-2025 Note Problem: Pain - Adul t Goal: Verbalizes/displays adequate comfort level or baseline comfort level Outcome: Progressing Problem: Safety - Adult Goal: Free from fall injury Outcome: Progressing [facility] 03-17-2025 Plan of care note Problem: Pain - Adult Goal: Verbalizes/displays adequate comfort level or baseline comfort level Outcome: Progressing Problem: Safety - Adult Goal: Free from fall injury Outcome: Progressing [facility] 03-17-2025 Nurse Note Patient Name: Jun Snyder Patient : 1965 Acct: [id number] Date of Admission: 03/13/2025 Room/Bed: [facility] A Code Status: Full Code Allergies: Allergies[1] [...] - Before each treatment: Dialysis Machine No.: [id number] RO Machine Number: [id number] Dialyzer Lot No.: [id number] Tubing Lot Number: [id number] All Connections Secure: Yes Venous Parameters Set: Yes Arterial Parameters Set: Yes NS Bag: Yes Saline Line Double Clamped: Yes Dialyzer: Nipro Prime Volume (mL): 200 mL RO Machine Number: [id number] RO Machine Log Sheet Completed: Yes Machine Alarm Self Test: Completed, Passed (03/17/25 0803) Air Foam Detector: Tested, Proper Function, pH Reading Extracorporeal Circuit Tested for Integrity: Yes Machine Conductivity: 13.6 Manual Conductivity: 13.6 Manual Ph: 7 Bleach Test (Neg): Yes Bath Temperature: 36 C (96.8 F) Conductivity Meter Serial #: [id number] Machine Functioning Alarm Free? Yes Dialysis Bath: [...] Other (Comment) (to inform patient arrival [facility] and need for orders) Provider [...] Problem List Diagnosis Anemia Paroxysmal A-fib (CMS/HCC) ([facility]) HTN (hypertension) ESRD on hemodialysis ([facility]/HCC) ([facility]) IgA nephropathy determined by biopsy of kidney Diverticulosis Nonrheumatic aortic valve stenosis Calcification of abdominal aorta (HCC) Missed vaccination due to patient refusal Tobacco abuse Alcohol use disorder in remission Atrial flutter, unspecified type (HCC) RSV (acute bronchiolitis due to respiratory syncytial virus) Aortic stenosis Upper GI bleed S/P AVR Acute hypoxic respiratory failure ([facility]) Acute encephalopathy Pneumoperitoneum Gastric ulceration Severe malnutrition (CMS/HCC) (HCC) Pleural effusion Peritonitis due to fungus (HCC) History of abdominal surgery Leg DVT (deep venous thromboembolism), acute, left (HCC) Ischemic ulcer of toe of left foot, 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) Tracheostomy dependence ([facility]) Leukocytosis Decubitus ulcer of sacral region, unstageable ([facility]) Pneumonia of both lungs due to methicillin susceptible Staphylococcus aureus (MSSA) ([facility]) Sacral osteomyelitis ([facility]/HCC) ([facility]) Acute respiratory failure with hypoxia ([facility]) [J96.01] Tracheostomy care ([facility]) [Z43.0] Pulmonary embolism ([facility]) 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 Complication of tracheostomy (CMS/HCC) ([facility]) BRBPR (bright red blood per rectum) Hemoptysis SOB (shortness of breath) Moderate malnutrition (CMS/HCC) ([facility]) [3] heparin, 5-30 Units/kg/hr [facility] 03-16-2025 Plan of care note Problem: Knowledge Deficit Goal: Patient/family/caregiver demonstrates understanding of disease process, treatment plan, medications, and discharge instructions Outcome: Progressing Problem: Potential for Compromised Skin Integrity Goal: Nutritional status is improving Outcome: Progressing [facility] 03-16-2025 Plan of care note [...] Goal: Assess Nutritional Intake Outcome: Progressing T [facility] 03-16-2025 Note Formatting of this n ote might be different from the original. Care Management Progress Note Going to dialysis today. Refusing surgery for gangrenous toes. Anticipate discharge back to [facility] soon. . Length of Stay (Days): 3 GMLOS: 3.9 [facility] 03-16-2025 Note Formatting of this n ote might be different from the original. Care Management Progress Note Going to dialysis today. Refusing surgery for gangrenous toes. Anticipate discharge back to [facility] soon. . Length of Stay (Days): 3 GMLOS: 3.9 [facility] 03-16-2025 Note Care Management Prog ress Note Going to dialysis today. Refusing surgery for gangrenous toes. Anticipate discharge back to [facility]CF soon. . Length of Stay (Days): 3 GMLOS: 3.9 [facility] 03-15-2025 Note Formatting of this n ote might be different from the original. ELIA reviewed chart. Copy of DPOA found in electronic chart naming Omar connell as agent. Care Management Return to Hospital Readmission questionnaire- N/A- pt form ECF. [facility] 03-15-2025 Note Formatting of this n ote might be different from the original. ELIA reviewed chart. Copy of DPOA found in electronic chart naming Omar connell as agent. Care Management Return to Hospital Readmission questionnaire- N/A- pt form [facility]CF. T [facility] 03-15-2025 Note ELIA reviewed chart. Copy of DPOA found in electronic chart naming Omar connell as agent. Care Management Return to Hospital Readmission questionnaire- N/A- pt form [facility]CF. [facility] 03-15-2025 Consult note Associated Order (s): Inpatient consult to Vascular Surgery--[facility]; Gangrenous toes noted on first 4 toes on left lower extremity, please evaluate Images from the original note were not included. Inpatient consult to Vascular Surgery--[facility]; Gangrenous toes noted on [...] 0 min Stress: Stress Concern Present (02/21/2025) [employer] - Occupational Stress Questionnaire Feeling of Stress : To some extent Social Connections: Unknown (02/21/2025) Social Connection and Isolation Panel [NHANES] Frequency of Communication with Friends and Family: More than three times a week Frequency of Social Gatherings with Friends and Family: Patient declined Attends [employer] Services: Patient declined Active Member of Clubs [...] Department of Surgery General Surgery Resident Pager: [phone] PAGING / [employer] Secure Chat: From 6a-6p (- weekends): Epic Secure Chat (FIRST) or Pager above (EMERGENT/Second) From 6p-6a (-s): Find resident physician under [facility] Surgery - General - Surgical [...] This note may have been dictated using [employer] and/or [employer] Voice Recognition Feature. The document was proofread; however, unrecognized voice recognition clinical exercise specialist errors may be present. [1] Past Medical History: Diagnosis Date Acute renal failure (ARF) ([facility]) 10/19/2019 Anemia 12/30/2021 Calcification of abdominal aorta ([facility]) 10/08/202309/[address] abd Diverticulosis 10/08/2023 ESRD on hemodialysis ([facility]) ([facility]) 10/26/2019 Hemodialysis patient ([facility]) ([facility]) HTN (hypertension) 12/01/2022 Hypertension IgA nephropathy IgA nephropathy determined by biopsy of kidney 10/26/2019 Missed vaccination due to patient refusal 10/08/2023 Has a number of non-scientific based beliefs which interfere with his understanding and acceptance of the medical benefit of vaccination. Nonrheumatic aortic valve stenosis 10/08/2023 Paroxysmal A-fib ([facility]) ([facility]) 08/18/2023 Tobacco abuse 10/08/2023 [2] Past Surgical History: Procedure Laterality Date APPENDECTOMY CARDIAC CATHETERIZATION N/A 10/09/2024 Performed by Bob Watson MD at [facility] Cardiac Cath/EP Lab CARDIAC CATHETERIZATION Bilateral 11/01/2024 Performed by Bob Watson MD at [facility] Cardiac Cath/EP Lab CARDIAC CATHETERIZATION N/A 11/01/2024 Performed by Bob Watson MD at [facility] Cardiac Cath/EP Lab COLONOSCOPY N/A 01/24/2025 Performed by Chadd Davis MD at [facility] ENDOSCOPY FISTULAGRAM (HISTORICAL) Left 09/15/2021 LEFT UPPER ARM HX AV FISTULA CREATION IR EMBOLIZATION 10/14/2024 IR EMBOLIZATION 10/14/2024 [facility] SPECIAL PROCEDURES IR FISTULAGRAM 08/07/2022 [...] planning if and when patient is willing. [facility] Work Phone: 03-15-2025 Consult note Associated Order (s): Inpatient consult to Vascular Surgery--[facility]; Gangrenous toes noted on first 4 toes on left lower extremity, please evaluate Images from the original note were not included. Inpatient consult to Vascular Surgery--[facility]; Gangrenous toes noted on [...] 0 min Stress: Stress Concern Present (02/21/2025) [employer] - Occupational Stress Questionnaire Feeling of Stress : To some extent Social Connections: Unknown (02/21/2025) Social Connection and Isolation Panel [NHANES] Frequency of Communication with Friends and Family: More than three times a week Frequency of Social Gatherings with Friends and Family: Patient declined Attends Lutheran Services: Patient declined Active Member of Clubs [...] Department of Surgery General Surgery Resident Pager: [phone] PAGING / [employer] Secure Chat: From 6a-6p (-s): [employer] Secure Chat (FIRST) or Pager above (EMERGENT/Second) From 6p-6a (-s): Find resident physician under [facility] Surgery - General - Surgical [...] This note may have been dictated using BumpTop Edition and/or Needle [employer] Voice Recognition Feature. The document was proofread; however, unrecognized voice recognition clinical exercise specialist errors may be present. [1] Past Medical History: Diagnosis Date Acute renal failure (ARF) ([facility]) 10/19/2019 Anemia 12/30/2021 Calcification of abdominal aorta ([facility]) 10/08/202309/[address] abd Diverticulosis 10/08/2023 ESRD on hemodialysis ([facility]) ([facility]) 10/26/2019 Hemodialysis patient ([facility]) ([facility]) HTN (hypertension) 12/01/2022 Hypertension IgA nephropathy IgA nephropathy determined by biopsy of kidney 10/26/2019 Missed vaccination due to patient refusal 10/08/2023 Has a number of non-scientific based beliefs which interfere with his understanding and acceptance of the medical benefit of vaccination. Nonrheumatic aortic valve stenosis 10/08/2023 Paroxysmal A-fib ([facility]) ([facility]) 08/18/2023 Tobacco abuse 10/08/2023 [2] Past Surgical History: Procedure Laterality Date APPENDECTOMY CARDIAC CATHETERIZATION N/A 10/09/2024 Performed by Bob Watson MD at [facility] Cardiac Cath/EP Lab CARDIAC CATHETERIZATION Bilateral 11/01/2024 Performed by Bob Watson MD at [facility] Cardiac Cath/EP Lab CARDIAC CATHETERIZATION N/A 11/01/2024 Performed by Bob Watson MD at [facility] Cardiac Cath/EP Lab COLONOSCOPY N/A 01/24/2025 Performed by Chadd Davis MD at [facility] ENDOSCOPY FISTULAGRAM (HISTORICAL) Left 09/15/2021 LEFT UPPER ARM HX AV FISTULA CREATION IR EMBOLIZATION 10/14/2024 IR EMBOLIZATION 10/14/2024 [facility] SPECIAL PROCEDURES IR FISTULAGRAM 08/07/2022 [...] MS, RD, LD Clinical Dietitian Contact: or [employer] Chat (dial *[phone] from hospital phone) Associated Order(s): IP CONSULT [...] and omental edema in upper abdomen.) Supervisor Painting Department Strength: Not Performed Chief Complaint Patient presents with Shortness of Breath Pt arrived from [facility] via EMS. Pt was starting dialysis and [...] HD w/ aggressive UF for volume control, jauqan well (-1L net removed). Nephro to cont [...] On: Kcal/kg Weight Used for Energy Requirements: [place] Weight for Energy Calculation (kg): 75 kg Total Energy Requirements (kcals/day): 2848-3806 (25-30 kcals/kg) Weight Used for Protein Requirements: [place] Weight in Kg Used for Protein Requirements: [...] TSH 6.88 (H) 03/13/2025 FREET4 0.89 03/15/2025 [id number] 959 (H) 10/22/2019 FOLATE 9.2 10/22/2019 FERRITIN [...] for updated dry wt - per nephro) [place] Body Weight (lbs) (Calculated): 166 lbs [place] Body Weight (Kg) (Calculated): 75 kg % [place] Body Weight (Calculated): 88.6 % BMI (kg/m2) [...] Yasemin Ceron MS, RD, LD Contact: or [employer] Chat (dial *[phone] from hospital phone) [1] Past Medical History: Diagnosis Date Acute renal failure (ARF) ([facility]) 10/19/2019 Anemia 12/30/2021 Calcification of abdominal aorta ([facility]) 10/08/202309/[address] abd Diverticulosis 10/08/2023 ESRD on hemodialysis ([facility]) ([facility]) 10/26/2019 Hemodialysis patient ([facility]) ([facility]) HTN (hypertension) 12/01/2022 Hypertension IgA nephropathy IgA nephropathy determined by biopsy of kidney 10/26/2019 Missed vaccination due to patient refusal 10/08/2023 Has a number of non-scientific based beliefs which interfere with his understanding and acceptance of the medical benefit of vaccination. Nonrheumatic aortic valve stenosis 10/08/2023 Paroxysmal A-fib ([facility]) ([facility]) 08/18/2023 Tobacco abuse 10/08/2023 [2] Past Surgical History: Procedure Laterality Date APPENDECTOMY CARDIAC CATHETERIZATION N/A 10/09/2024 Performed by Bob Watson MD at [facility] Cardiac Cath/EP Lab CARDIAC CATHETERIZATION Bilateral 11/01/2024 Performed by Bob Watson MD at [facility] Cardiac Cath/EP Lab CARDIAC CATHETERIZATION N/A 11/01/2024 Performed by Bob Watson MD at [facility] Cardiac Cath/EP Lab COLONOSCOPY N/A 01/24/2025 Performed by Chadd Davis MD at [facility] ENDOSCOPY FISTULAGRAM (HISTORICAL) Left 09/15/2021 LEFT UPPER ARM HX AV FISTULA CREATION IR EMBOLIZATION 10/14/2024 IR EMBOLIZATION 10/14/2024 [facility] SPECIAL PROCEDURES IR FISTULAGRAM 08/07/2022 IR FISTULAGRAM 08/07/2022 SB IR IMAGING TONSILLECTOMY (HISTORICAL) [3] Lidocaine, 1 patch, Topical, Daily metoprolol tartrate, 25 mg, Oral, q6h pantoprazole, 40 mg, Oral, BID AC sevelamer carbonate, 800 mg, Oral, TID WC sodium zirconium cyclosilicate, 5 g, Oral, Daily warfarin, 2.5 mg, Oral, Once [4] [facility] Consult Note Consults HPI Jun is [...] 0 min Stress: Stress Concern Present (02/21/2025) [employer] [place] - Occupational Stress Questionnaire Feeling of Stress : To some extent Social Connections: Unknown (02/21/2025) Social Connection and Isolation Panel [NHANES] Frequency of Communication with Friends and Family: More than three times a week Frequency of Social Gatherings with Friends and Family: Patient declined Attends Lutheran Services: Patient declined Active Member of Clubs [...] and sacral wound. Please message me through [employer] chat with any questions or concerns. Wellington Nicole MD 03/14/2025 10:43 AM [facility] [place] [address], [address] [place] [address] Office: [phone] [1] Past Medical History: Diagnosis Date Acute renal failure (ARF) ([facility]) 10/19/2019 Anemia 12/30/2021 Calcification of abdominal aorta ([facility]) 10/08/202309/[address] abd Diverticulosis 10/08/2023 ESRD on hemodialysis ([facility]) ([facility]) 10/26/2019 Hemodialysis patient ([facility]) ([facility]) HTN (hypertension) 12/01/2022 Hypertension IgA nephropathy IgA nephropathy determined by biopsy of kidney 10/26/2019 Missed vaccination due to patient refusal 10/08/2023 Has a number of non-scientific based beliefs which interfere with his understanding and acceptance of the medical benefit of vaccination. Nonrheumatic aortic valve stenosis 10/08/2023 Paroxysmal A-fib ([facility]) ([facility]) 08/18/2023 Tobacco abuse 10/08/2023 [2] Family History [...] 3350 Associated Order(s): IP CONSULT TO CARDIOLOGY [facility] Cardiology /Electrophysiology Consult Note Reason for Consult/Chief Complaint: Volume overload, afib rvr Referring provider: Dr Kidd Established baked goods stock clerk: Dr Shah History of Present Illness: Jun [...] to select rehab. He recently was at [facility] for Klebsiella pneumonia, hemoptysis and lung [...] of Cardiovascular Disease, Division of Heart Failure [facility] [place] 3:25 PM 03/14/25 Associated Order(s): INPATIENT CONSULT TO WOUND CARE PROVIDERS Images from the original note were not included. [facility] Wound VAC CONSULT Note Jun Snyder AGE: [...] apply Betadine and allow to dry, leave LATEX THREAD MACHINE OPERATOR daily and PRN Nutritional support Wound Care to follow Recommend to follow up at [facility] wound care center after hospital discharge. [...] abd Diverticulosis 10/08/2023 ESRD on hemodialysis ([facility]) ([facility]) 10/26/2019 Hemodialysis patient ([facility]) ([facility]) HTN (hypertension) 12/01/2022 Hypertension IgA nephropathy IgA nephropathy determined by biopsy of kidney 10/26/2019 Missed vaccination due to patient refusal 10/08/2023 Has a number of non-scientific based beliefs which interfere with his understanding and acceptance of the medical benefit of vaccination. Nonrheumatic aortic valve stenosis 10/08/2023 Paroxysmal A-fib ([facility]) ([facility]) 08/18/2023 Tobacco abuse 10/08/2023 [2] Past Surgical History: Procedure Laterality Date APPENDECTOMY CARDIAC CATHETERIZATION N/A 10/09/2024 Performed by Bob Watson MD at [facility] Cardiac Cath/EP Lab CARDIAC CATHETERIZATION Bilateral 11/01/2024 Performed by Bob Watson MD at [facility] Cardiac Cath/EP Lab CARDIAC CATHETERIZATION N/A 11/01/2024 Performed by Bob Watson MD at [facility] Cardiac Cath/EP Lab COLONOSCOPY N/A 01/24/2025 Performed by Chadd Davis MD at [facility] ENDOSCOPY FISTULAGRAM (HISTORICAL) Left 09/15/2021 LEFT UPPER ARM HX AV FISTULA CREATION IR EMBOLIZATION 10/14/2024 IR EMBOLIZATION 10/14/2024 [facility] SPECIAL PROCEDURES IR FISTULAGRAM 08/07/2022 [...] 4:44 PM EDT documented in this encounter [facility] 03-15-2025 Note Patient currently of f unit, will attempt smoking cessation counseling at a later date. [facility] 03-15-2025 Nurse Note Patient Name: Jun Snyder Patient : 1965 Acct: [id number] Date of Admission: 03/13/2025 Room/Bed: [facility] A Code Status: Full Code Allergies: Allergies[1] [...] - Before each treatment: Dialysis Machine No.: [id number] RO Machine Number: [id number] Dialyzer Lot No.: [id number] Tubing Lot Number: [id number] All Connections Secure: Yes Venous Parameters Set: [...] C (96.8 F) Conductivity Meter Serial #: [id number] Machine Functioning Alarm Free? Yes Dialysis Bath: [...] Other (Comment) (to inform patient arrival [facility] and need for orders) Provider [...] Active Problem List Diagnosis Anemia Paroxysmal A-fib ([facility]) (HCC) HTN (hypertension) ESRD on hemodialysis (CMS/HCC) [...] failure with hypoxia (HCC) [J96.01] Tracheostomy care ([facility]) [Z43.0] Pulmonary embolism (HCC) 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 Complication of tracheostomy (CMS/HCC) (HCC) BRBPR (bright red blood per rectum) Hemoptysis SOB (shortness of breath) Moderate malnutrition (CMS/HCC) (HCC) [3] [facility] 03-15-2025 Consult note Associated Order [...] MS, RD, LD Clinical Dietitian Contact: or [employer] Chat (dial *[phone] from hospital phone) [facility] 03-15-2025 Plan of care note [...] Interventions Goal: Assess Nutritional Intake Outcome: Progressing [facility] 03-15-2025 Note Formatting of this n ote might be different from the original. Care Management Progress Note Cardiology following. Pt in A flutter, trying rate control. Has wound vac on sacral area. Pt is refusing surgery. When stable is a bed hold at [facility]. . Length of Stay (Days): 2 GMLOS: No GMLOS Documented [facility] 03-15-2025 Note Formatting of this n ote might be different from the original. Care Management Progress Note Cardiology following. Pt in A flutter, trying rate control. Has wound vac on sacral area. Pt is refusing surgery. When stable is a bed hold at [facility]. . Length of Stay (Days): 2 GMLOS: No GMLOS Documented [facility] 03-15-2025 Nurse Note Wound Care consulted for Pressure Injury Prevention. Pt's Kee score= 14 on 03/13 Pt's pressure points assessed. Pt's Heels, Back, Elbows, Occiput and ears all intact. [address] and healed area noted to occiput. Pt moving lower extremities well in bed against gravity. Pt currently followed by [facility] group for wounds to left toes 1-4 and sacrum with wound vac in place. For left toes, sacrum, and sacral wound vac assessments and treatment plan, please see Wound/Ostomy WIRE TWISTER progress notes. Instructed pt on pressure injury prevention and importance of turning/postioning every 2hrs while in bed and every 15 min while sitting in chair. Instructed on use and care of waffle chair cushion. Verbalized understanding. Prevention Measures in place, including: Jeremiah sheet with pillows/wedges, Heels elevated off bed on pillows, Zinc/Moisture Barrier ointment (obtained), Waffle chair cushion (obtained for pt). Skin Care precaution order set in place. Dietitian consult order placed d/t wounds. PT/OT consult in place. Will continue to follow pt. Please Vocera for any questions or concerns. Yari Pelletier RN [facility] 03-15-2025 Plan of care note Problem: Knowledge Deficit Goal: Patient/family/caregiver demonstrates understanding of disease process, treatment plan, medications, and discharge instructions Outcome: Progressing Problem: Problem Interventions Goal: Assess Nutritional Intake Outcome: Progressing [facility] 03-14-2025 Plan of care note Problem: [...] Interventions Goal: Assess Nutritional Intake Outcome: Progressing [facility] 03-14-2025 Consult note Associated Order (s): [...] and omental edema in upper abdomen.) Supervisor Painting Department Strength: Not Performed Chief Complaint Patient presents with Shortness of Breath Pt arrived from [facility] via EMS. Pt was starting dialysis and [...] On: Kcal/kg Weight Used for Energy Requirements: [place] Weight for Energy Calculation (kg): 75 kg Total Energy Requirements (kcals/day): 4320-9768 (25-30 kcals/kg) Weight Used for Protein Requirements: [place] Weight in Kg Used for Protein Requirements: [...] TSH 6.88 (H) 03/13/2025 FREET4 0.89 03/15/2025 [id number] 959 (H) 10/22/2019 FOLATE 9.2 10/22/2019 FERRITIN [...] for updated dry wt - per nephro) [place] Body Weight (lbs) (Calculated): 166 lbs [place] Body Weight (Kg) (Calculated): 75 kg % [place] Body Weight (Calculated): 88.6 % BMI (kg/m2) [...] Yasemin Ceron MS, RD, LD Contact: or [employer] (fyxq *[phone] from hospital phone) [1] Past Medical History: Diagnosis Date Acute renal failure (ARF) ([facility]) 10/19/2019 Anemia 12/30/2021 Calcification of abdominal aorta ([facility]) 10/08/202309/[address] abd Diverticulosis 10/08/2023 ESRD on hemodialysis ([facility]) ([facility]) 10/26/2019 Hemodialysis patient ([facility]) ([facility]) HTN (hypertension) 12/01/2022 Hypertension IgA nephropathy IgA nephropathy determined by biopsy of kidney 10/26/2019 Missed vaccination due to patient refusal 10/08/2023 Has a number of non-scientific based beliefs which interfere with his understanding and acceptance of the medical benefit of vaccination. Nonrheumatic aortic valve stenosis 10/08/2023 Paroxysmal A-fib ([facility]) ([facility]) 08/18/2023 Tobacco abuse 10/08/2023 [2] Past Surgical History: Procedure Laterality Date APPENDECTOMY CARDIAC CATHETERIZATION N/A 10/09/2024 Performed by Bob Watson MD at [facility] Cardiac Cath/EP Lab CARDIAC CATHETERIZATION Bilateral 11/01/2024 Performed by Bob Watson MD at [facility] Cardiac Cath/EP Lab CARDIAC CATHETERIZATION N/A 11/01/2024 Performed by Bob Watson MD at [facility] Cardiac Cath/EP Lab COLONOSCOPY N/A 01/24/2025 Performed by Chadd Davis MD at [facility] ENDOSCOPY FISTULAGRAM (HISTORICAL) Left 09/15/2021 [...] Daily warfarin, 2.5 mg, Oral, Once [4] [facility] 03-14-2025 Hospital Discharg e steven Jones RN - 03/14/2025 2:19 PM EDT My Heart Failure Action Plan Use the below chart as a guide for daily symptom monitoring after you obtain your morning weight. My Date Puller: Dr. Shah [facility] Cardiology at [facility] [phone] My Tallow Maker: [facility] [address] [place] [address] My Diagnosis: Heart failure with [...] 5 pounds in a week Call your Tallow Maker/Dialysis center!! My Diet Goal: General diet recommendations [...] 10/09/2024 Performed by Bob Watson MD at [facility] Cardiac Cath/EP Lab CARDIAC CATHETERIZATION Bilateral 11/01/2024 Performed by Bob Watson MD at [facility] Cardiac Cath/EP Lab CARDIAC CATHETERIZATION N/A 11/01/2024 Performed by Bob Watson MD at [facility] Cardiac Cath/EP Lab COLONOSCOPY N/A 01/24/2025 Performed by Chadd Davis MD at [facility] ENDOSCOPY FISTULAGRAM (HISTORICAL) Left 09/15/2021 LEFT UPPER ARM HX AV FISTULA CREATION IR EMBOLIZATION 10/14/2024 IR EMBOLIZATION 10/14/2024 [facility] SPECIAL PROCEDURES IR FISTULAGRAM 08/07/2022 [...] failure with hypoxia (HCC) [J96.01] Tracheostomy care ([facility]) [Z43.0] 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 Complication of tracheostomy [...] (70.3 kg) Mental Status: {ROSENDO Patient Mental Status:99318} IV Access: {ROSENDO IV Access:89282} Nursing Mobility/ADLs: Walking {CHRISTY ADL:::"Independent"} Transfer {CHRISTY ADL:::"Independent"} Bathing {CHRISTY ADL:::"Independent"} Dressing {CHRISTY ADL:::"Independent"} Toileting {CHRISTY ADL:::"Independent"} Feeding {CHRISTY ADL:::"Independent"} Inventory Manager {CHRISTY ADL:::"Independent"} Med Delivery {yes/no:32143} Wound Care Documentation and Therapy: Wound/Incision 11/13/24 Pressure Injury Sacrum (Active) Site Assessment Red;Green [address] 03/21/25 0402 Mahnaz-Wound Assessment Green [address] 03/13/251999 Drainage Description Sanguineous 03/13/251999 Odor Malodorous/putrid [...] Site Assessment Black;Painful 03/21/25 0402 Mahnaz-Wound Assessment [address] 03/21/25 0402 Odor None 03/18/25 1500 Drainage [...] Number of days: 7 Elimination: Continence: Bowel: {yes/no:01740} Bladder: {yes/no:11171} Urinary Catheter: {ROSENDO Urinary Catheter:36407} Colostomy/Ileostomy/Ileal Conduit: {YES / NO:} Date of Last BM: Intake/Output Summary (Last 24 hours) at 03/21/2025 1206 Last data filed at 03/20/2025 1523 Gross per 24 hour Intake 300 ml Output -- Net 300 ml I/O last 3 completed shifts: In: 1338.9 (19 mL/kg) [P.O.:240; I.V.:1098.9 (15.6 mL/kg)] Out: - (0 mL/kg) Weight: 70.3 kg Safety Concerns: {ROSENDO Safety Concerns:13304} Impairments/Disabilities: {ROSENDO Impairments/Disabilities:64390} Nutrition Therapy: Current Nutrition Therapy: {ROSENDO Diet List:63998} Routes of Feeding: {routes of feedin} Liquids: {liquid consistency:16873} Daily Fluid Restriction: {daily fluid restriction:43110} Last Modified Barium Swallow with Video (Video Swallowing Test): {done not done:04533} Treatments at the Time of Hospital Discharge: Respiratory Treatments: Oxygen Therapy: {Therapy; copd oxygen:24090} Ventilator: {ROSENDO Ventilator:66650} Rehab Therapies: {GEN THERAPY DISCIPLINE SCAL:5314869} Weight Bearing Status/Restrictions: {POD WEIGHT BEARIN} Other Medical Equipment (for information only, NOT a DME order): {Assistive Devices DME:92264} Other Treatments: Patient's personal belongings (please select all that are sent with patient): {ROSENDO Patient Belongings:60944} RN SIGNATURE: {E-signature:29541} CASE MANAGEMENT/SOCIAL WORK SECTION Inpatient Status Date: 02-10-25 Discharging to Facility/ Agency Name: [facility] Address:[address] [place] [address] Fax: Dialysis Facility (if applicable) Name: Address: Dialysis Schedule: Phone: Fax: Administrative Operations Coordinator/Black Powder Glazing Operator signature: ICIAN SECTION Name: Jun Snyder Prognosis: fair Condition at Discharge: stable Rehab Potential (if transferring to Rehab): fair Recommended Labs or Other Treatments After Discharge: none The individual is being admitted to a nursing facility directly from an [facility] or a unit of a [facility] that is not operated by or licensed by [facility] under section 5119.14 or 5160-3-15.1 5 The [...] H&P PHYSICIAN SIGNATURE: documented in this encounter [facility] 03-14-2025 Nurse Note Patient Name: Jun Snyder Patient : 1965 Acct: [id number] Date of Admission: 03/13/2025 Room/Bed: [facility] A Code Status: Full Code Allergies: Allergies[1] [...] Date of Last Dressing Change: na na, [address]?: na Red [...] - Before each treatment: Dialysis Machine No.: [id number] RO Machine Number: [id number] Dialyzer Lot No.: [id number] Tubing Lot Number: [id number] All Connections Secure: Yes Venous Parameters Set: Yes Arterial Parameters Set: Yes NS Bag: Yes Saline Line Double Clamped: Yes Dialyzer: Nipro Prime Volume (mL): 200 mL RO Machine Number: [id number] RO Machine Log Sheet Completed: Yes Machine Alarm Self Test: Completed, Passed (03/14/25 1135) Air Foam Detector: Tested, Proper Function, pH Reading Extracorporeal Circuit Tested for Integrity: Yes Machine Conductivity: 13.7 Manual Conductivity: 13.6 Manual Ph: 7 Bleach Test (Neg): Yes Bath Temperature: 36 C (96.8 F) Conductivity Meter Serial #: [id number] Machine Functioning Alarm Free? Yes Dialysis Bath: [...] Other (Comment) (to inform patient arrival from [facility] and need for orders) Provider [...] Active Problem List Diagnosis Anemia Paroxysmal A-fib ([facility]) ([facility]) HTN (hypertension) ESRD on hemodialysis ([facility]) ([facility]) IgA nephropathy determined by biopsy of kidney Diverticulosis Nonrheumatic aortic valve stenosis Calcification of abdominal aorta ([facility]) Missed vaccination due to patient refusal Tobacco abuse Alcohol use disorder in remission Atrial flutter, unspecified type ([facility]) RSV (acute bronchiolitis due to respiratory syncytial virus) Aortic stenosis Upper GI bleed S/P AVR Acute hypoxic respiratory failure ([facility]) Acute encephalopathy Pneumoperitoneum Gastric ulceration Severe malnutrition ([facility]) ([facility]) Pleural effusion Peritonitis due to fungus ([facility]) History of abdominal surgery Leg DVT (deep venous thromboembolism), acute, left ([facility]) Ischemic ulcer of toe of left foot, limited to breakdown of skin ([facility]) Tracheostomy dependence (HCC) Leukocytosis Decubitus ulcer of sacral region, unstageable (HCC) Pneumonia of both lungs due to methicillin susceptible Staphylococcus aureus (MSSA) (HCC) Sacral osteomyelitis (CMS/HCC) (HCC) Acute respiratory failure with hypoxia (HCC) [J96.01] Tracheostomy care (HCC) [Z43.0] Pulmonary embolism (HCC) 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 Complication of tracheostomy (CMS/HCC) (HCC) BRBPR (bright red blood per rectum) Hemoptysis SOB (shortness of breath) [3] [facility] 03-14-2025 Consult note Formatting of th is note is different from the original. [facility] Nephrology Consult Note Consults HPI Jun is [...] 0 min Stress: Stress Concern Present (02/21/2025) [facility] [place] [facility] [employer] [facility] - Occupational Stress Questionnaire Feeling of Stress : To some extent Social Connections: Unknown (02/21/2025) Social Connection and Isolation Panel [NHANES] Frequency of Communication with Friends and Family: More than three times a week Frequency of Social Gatherings with Friends and Family: Patient declined Attends Lutheran Services: Patient declined Active Member of Clubs [...] concerns. Wellington Nicole MD 03/14/2025 10:43 AM [facility] [address] [place] [address], [address] [place] [id number] Office: [phone] [1] Past Medical History: Diagnosis Date Acute renal failure (ARF) ([facility]) 10/19/2019 Anemia 12/30/2021 Calcification of abdominal aorta (HCC) 10/08/202309/[address] abd Diverticulosis 10/08/2023 ESRD on hemodialysis ([facility]) ([facility]) 10/26/2019 Hemodialysis patient ([facility]) ([facility]) HTN (hypertension) 12/01/2022 Hypertension IgA nephropathy IgA [...] ODT OR ondansetron, polyethylene glycol (PEG) 3350 [facility] 03-14-2025 Note Formatting of this n ote might be different from the original. Care Management Progress Note Pt was sent to ER from dialysis due to shortness of breath. Needs PVR of BLE. Nephrology, Vascular and therapies are following. Wants to return to [facility]. Is a bed hold, but if they can skill him they would like to.. Length of Stay (Days): 1 GMLOS: No GMLOS Documented [facility] 03-14-2025 Note Formatting of this n ote might be different from the original. Care Management Progress Note Pt was sent to ER from dialysis due to shortness of breath. Needs PVR of BLE. Nephrology, Vascular and therapies are following. Wants to return to [facility]. Is a bed hold, but if they can skill him they would like to.. Length of Stay (Days): 1 GMLOS: No GMLOS Documented [facility] 03-14-2025 Consult note Associated Order (s): IP CONSULT TO CARDIOLOGY [facility] [place] [facility] Cardiology /Electrophysiology Consult Note Reason for Consult/Chief Complaint: Volume overload, afib rvr Referring provider: Dr Kidd Established baked goods stock clerk: Dr Shah History of Present Illness: Jun [...] to select rehab. He recently was at [facility] for Klebsiella pneumonia, hemoptysis and lung [...] Pulse: 112 115 (!) 122 Resp: 19 16 Temp: 36.5 C (97.7 F) 36.4 [...] of Cardiovascular Disease, Division of Heart Failure [facility] [place] 3:25 PM 03/14/25 [facility] Work Phone: 03-14-2025 Consult note Associated Order (s): INPATIENT CONSULT TO WOUND CARE PROVIDERS Images from the original note were not included. [facility] Wound VAC CONSULT Note Jun Snyder AGE: [...] apply Betadine and allow to dry, leave LATEX THREAD MACHINE OPERATOR daily and PRN Nutritional support Wound Care to follow Recommend to follow up at [facility] wound care center after hospital discharge. [...] History: Diagnosis Date Acute renal failure (ARF) ([facility]) 10/19/2019 Anemia 12/30/2021 Calcification of abdominal aorta ([facility]) 10/08/202309/[address] abd Diverticulosis 10/08/2023 ESRD on hemodialysis ([facility]) ([facility]) 10/26/2019 Hemodialysis patient ([facility]) ([facility]) HTN (hypertension) 12/01/2022 Hypertension IgA nephropathy IgA [...] 10/09/2024 Performed by Bob Watson MD at [facility] Cardiac Cath/EP Lab CARDIAC CATHETERIZATION Bilateral 11/01/2024 Performed by Bob Watson MD at [facility] Cardiac Cath/EP Lab CARDIAC CATHETERIZATION N/A 11/01/2024 Performed by Bob Watson MD at [facility] Cardiac Cath/EP Lab COLONOSCOPY N/A 01/24/2025 Performed by Chadd Davis MD at [facility] ENDOSCOPY FISTULAGRAM (HISTORICAL) Left 09/15/2021 LEFT UPPER ARM HX AV FISTULA CREATION IR EMBOLIZATION 10/14/2024 IR EMBOLIZATION 10/14/2024 [facility] SPECIAL PROCEDURES IR FISTULAGRAM 08/07/2022 [...] DO at 03/19/2025 4:44 PM EDT T [facility] 03-14-2025 Note Formatting of this n ote might be different from the original. Referral placed to [facility] Return - [facility] via [facility] per TCC request. Await review and response regarding ability to accept. TCC notified. Electronically signed by [facility] Sabino Rodrigues T [facility] 03-14-2025 Note Formatting of this n ote might be different from the original. Referral placed to [facility] via [facility] per TCC request. Await review and response regarding ability to accept. TCC notified. Electronically signed by [facility] Sabino Rodrigues T [facility] 03-14-2025 Note Referral placed to [facility] Return - [facility] via [facility] per TCC request. Await review and response regarding ability to accept. TCC notified. Electronically signed by [facility] 03-13-2025 Plan of care note Problem: Knowledge Deficit Goal: Patient/family/caregiver demonstrates understanding of disease process, treatment plan, medications, and discharge instructions Outcome: Progressing Problem: Potential for Compromised Skin Integrity Goal: Skin Integrity is Maintained or Improved Outcome: Progressing [facility] 03-13-2025 Nurse Note Removed wound vac that patient arrived to 5w from f pictures of all wound taken on rover and saved to chart NSWto DSD applied to sacral wound T [facility] 03-13-2025 History and physical note [facility] Attending History and Physical Admit Date: 03/13/2025 [...] Klebsiella pneumonia with lung abscess presented to [facility] ED with worsening shortness of breath. He [...] in upper abdomen He was transferred from [facility] ED to [facility] due to bed availability Past Medical History: [...] 0 min Stress: Stress Concern Present (02/21/2025) [employer] [place] - Occupational Stress Questionnaire Feeling of Stress : To some extent Social Connections: Unknown (02/21/2025) Social Connection and Isolation Panel [NHANES] Frequency of Communication with Friends and Family: More than three times a week Frequency of Social Gatherings with Friends and Family: Patient declined Attends Lutheran Services: Patient declined Active Member of Clubs [...] differential Comprehensive metabolic panel Blood gas, venous ([facility] and [facility]) Protime-INR Serial Troponin, High Sensitivity Troponin, High Sensitivity, Serial, Second Test Adult diet Regular Telemetry monitoring for Arrhythmia Management ECG 12 lead Admit to inpatient Code status: Prior- NOTE: This report was transcribed using voice recognition software. Every effort was made to ensure accuracy; however, inadvertent computerized clinical exercise specialist errors may be present. Rubi Sanon MD,MD Division of Hospitalist Medicine [facility] Please forward a copy of this H&P to the patient's PCP. Thank you. Electronically signed by Rubi Sanon MD at 5:11 PM [1] Past Medical History: Diagnosis Date Acute renal failure (ARF) ([facility]) 10/19/2019 Anemia 12/30/2021 Calcification of abdominal aorta ([facility]) 10/08/202309/[address] abd Diverticulosis 10/08/2023 ESRD on hemodialysis ([facility]) ([facility]) 10/26/2019 Hemodialysis patient ([facility]) ([facility]) HTN (hypertension) 12/01/2022 Hypertension IgA nephropathy IgA nephropathy determined by biopsy of kidney 10/26/2019 Missed vaccination due to patient refusal 10/08/2023 Has a number of non-scientific based beliefs which interfere with his understanding and acceptance of the medical benefit of vaccination. Nonrheumatic aortic valve stenosis 10/08/2023 Paroxysmal A-fib ([facility]) ([facility]) 08/18/2023 Tobacco abuse 10/08/2023 [2] Past Surgical History: Procedure Laterality Date APPENDECTOMY CARDIAC CATHETERIZATION N/A 10/09/2024 Performed by Bob Watson MD at [facility] Cardiac Cath/EP Lab CARDIAC CATHETERIZATION Bilateral 11/01/2024 Performed by Bob Watson MD at [facility] Cardiac Cath/EP Lab CARDIAC CATHETERIZATION N/A 11/01/2024 Performed by Bob Watson MD at [facility] Cardiac Cath/EP Lab COLONOSCOPY N/A 01/24/2025 Performed by Chadd Davis MD at [facility] ENDOSCOPY FISTULAGRAM (HISTORICAL) Left 09/15/2021 LEFT UPPER ARM HX AV FISTULA CREATION IR EMBOLIZATION 10/14/2024 IR EMBOLIZATION 10/14/2024 [facility] SPECIAL PROCEDURES IR FISTULAGRAM 08/07/2022 IR FISTULAGRAM 08/07/2022 [facility] IR IMAGING TONSILLECTOMY (HISTORICAL) [3] Family History Problem Relation Name Age of Onset No Known Problems Mother No Known Problems Father [4] No current facility-administered medications for this encounter. [5] Allergies Allergen Reactions Lisinopril Swelling and Angioedema [facility] 03-13-2025 Note [facility] 03-13-2025 History and physical note [facility] Attending History and Physical Admit Date: 03/13/2025 [...] Klebsiella pneumonia with lung abscess presented to [facility] ED with worsening shortness of breath. He [...] in upper abdomen He was transferred from [facility] to [facility] due to bed availability Past Medical History: [...] 0 min Stress: Stress Concern Present (02/21/2025) [employer] [place] [employer] - Occupational Stress Questionnaire Feeling of Stress : To some extent Social Connections: Unknown (02/21/2025) Social Connection and Isolation Panel [NHANES] Frequency of Communication with Friends and Family: More than three times a week Frequency of Social Gatherings with Friends and Family: Patient declined Attends Lutheran Services: Patient declined Active Member of Clubs [...] made to ensure accuracy; however, inadvertent computerized clinical exercise specialist errors may be present. Rubi Sanon MD,MD Division of Hospitalist Medicine [employer] Please forward a copy of this H&P to the patient's PCP. Thank you. Electronically signed by Rubi Sanon MD at 5:11 PM [1] Past Medical History: Diagnosis Date Acute renal failure (ARF) ([facility]) 10/19/2019 Anemia 12/30/2021 Calcification of abdominal aorta ([facility]) 10/08/202309/[address] abd Diverticulosis 10/08/2023 ESRD on hemodialysis ([facility]) ([facility]) 10/26/2019 Hemodialysis patient ([facility]) ([facility]) HTN (hypertension) 12/01/2022 Hypertension IgA nephropathy IgA nephropathy determined by biopsy of kidney 10/26/2019 Missed vaccination due to patient refusal 10/08/2023 Has a number of non-scientific based beliefs which interfere with his understanding and acceptance of the medical benefit of vaccination. Nonrheumatic aortic valve stenosis 10/08/2023 Paroxysmal A-fib ([facility]) ([facility]) 08/18/2023 Tobacco abuse 10/08/2023 [2] Past Surgical History: Procedure Laterality Date APPENDECTOMY CARDIAC CATHETERIZATION N/A 10/09/2024 Performed by Bob Watson MD at [facility] Cardiac Cath/EP Lab CARDIAC CATHETERIZATION Bilateral 11/01/2024 Performed by Bob Watson MD at [facility] Cardiac Cath/EP Lab CARDIAC CATHETERIZATION N/A 11/01/2024 Performed by Bob Watson MD at [facility] Cardiac Cath/EP Lab COLONOSCOPY N/A 01/24/2025 Performed by Chadd Davis MD at [facility] ENDOSCOPY FISTULAGRAM (HISTORICAL) Left 09/15/2021 LEFT UPPER ARM HX AV FISTULA CREATION IR EMBOLIZATION 10/14/2024 IR EMBOLIZATION 10/14/2024 [facility] SPECIAL PROCEDURES IR FISTULAGRAM 08/07/2022 IR FISTULAGRAM 08/07/2022 [facility] IR IMAGING TONSILLECTOMY (HISTORICAL) [3] Family History Problem Relation Name Age of Onset No Known Problems Mother No Known Problems Father [4] No current facility-administered medications for this encounter. [5] Allergies Allergen Reactions Lisinopril Swelling and Angioedema documented in this encounter [facility] 03-13-2025 Emergency department Note When this RN came back from lunch Pt was already taken to [facility] by Consuelo Day. RN covering my lunch called report to RN at [facility]. [facility] 03-13-2025 Emergency department Note When this RN came back from lunch Pt was already taken to [facility] by Consuelo Day. RN covering my lunch called report to RN [facility]. Called report to SWEETIE Linder at 5W. Consuelo Johnson at bedside to transport patient to [facility]. Emergency Department Encounter Pt Name: Jun Snyder Birthdate 1965 Date of evaluation: 03/13/2025 Provider: Keiry Solares MD CHIEF COMPLAINT Chief Complaint Patient presents with Shortness of Breath Pt arrived from [facility] via EMS. Pt was starting dialysis and [...] alert. Psychiatric: Mood and Affect: Mood normal. [place] Coma Scale Best Eye Response: Spontaneous Best Verbal Response: Oriented Best Motor Response: Follows commands [place] Coma Scale Score: 15 EMERGENCY DEPARTMENT COURSE [...] Hoffman, due to no available beds at [facility] and available beds at [facility] patient wishes to be transferred. I discussed the case with Dr. Sanon at [facility] who accepts patient for transfer. Chronic conditions and social determinants of health affecting care: atrial fibrillation, ESRD DISPOSITION/PLAN Admit 03/13/2025 02:55:43 PM Keiry Solares MD Emergency Medicine [1] Past Medical History: Diagnosis Date Acute renal failure (ARF) ([facility]) 10/19/2019 Anemia 12/30/2021 Calcification of abdominal aorta ([facility]) 10/08/202309/[address] abd Diverticulosis 10/08/2023 ESRD on hemodialysis ([facility]) ([facility]) 10/26/2019 Hemodialysis patient ([facility] ([facility]) HTN (hypertension) 12/01/2022 Hypertension IgA nephropathy IgA nephropathy determined by biopsy of kidney 10/26/2019 Missed vaccination due to patient refusal 10/08/2023 Has a number of non-scientific based beliefs which interfere with his understanding and acceptance of the medical benefit of vaccination. Nonrheumatic aortic valve stenosis 10/08/2023 Paroxysmal A-fib ([facility]) ([facility]) 08/18/2023 Tobacco abuse 10/08/2023 Keiry Solares MD 03/13/252115 documented in this encounter [facility] 03-13-2025 Emergency department Note Called report to SWEETIE Linder at 5W. [facility] 03-13-2025 Emergency department Note Consuelo Johnson at bedside to transport patient to [facility]. [facility] 03-13-2025 Physician Emergen cy department Note Emergency Department Encounter Pt Name: Jun Snyder Birthdate 1965 Date of evaluation: 03/13/2025 Provider: Keiry Solares MD CHIEF COMPLAINT Chief Complaint Patient presents with Shortness of Breath Pt arrived from [facility] via EMS. Pt was starting dialysis and [...] alert. Psychiatric: Mood and Affect: Mood normal. [place] Coma Scale Best Eye Response: Spontaneous Best Verbal Response: Oriented Best Motor Response: Follows commands [place] Coma Scale Score: 15 EMERGENCY DEPARTMENT COURSE [...] Hoffman, due to no available beds at [facility] and available beds at [facility] patient wishes to be transferred. I discussed the case with Dr. Sanon at [facility] who accepts patient for transfer. Chronic conditions and social determinants of health affecting care: atrial fibrillation, ESRD DISPOSITION/PLAN Admit 03/13/2025 02:55:43 PM Keiry Solares MD Emergency Medicine [1] Past Medical History: Diagnosis Date Acute renal failure (ARF) ([facility]) 10/19/2019 Anemia 12/30/2021 Calcification of abdominal aorta ([facility]) 10/08/202309/[address] abd Diverticulosis 10/08/2023 ESRD on hemodialysis ([facility]) ([facility]) 10/26/2019 Hemodialysis patient ([facility]) ([facility]) HTN (hypertension) 12/01/2022 Hypertension IgA nephropathy IgA nephropathy determined by biopsy of kidney 10/26/2019 Missed vaccination due to patient refusal 10/08/2023 Has a number of non-scientific based beliefs which interfere with his understanding and acceptance of the medical benefit of vaccination. Nonrheumatic aortic valve stenosis 10/08/2023 Paroxysmal A-fib ([facility]) ([facility]) 08/18/2023 Tobacco abuse 10/08/2023 Keiry Solares MD 03/13/252115 [facility] 03-08-2025 History of Presen t illness Narrative Pt was followed by the Palliative Care Team during hospitalization at [facility]. Provider is recommending continued Palliative follow up in the community. Referral made too [facility] Palliative Care Team, faxed info to [phone] documented in this encounter [facility] 03-08-2025 Telephone encount er Note 2nd attempt called and spoke to the Alyssa the Nurse for the patient at the facility he lives at. She states Sabino is the person who schedules the appointments and she is on vacation and wont be back till next Wednesday. I will try again next wednesday [facility] 03-08-2025 Miscellaneous Notes Formattin [...] this? Thank you documented in this encounter [facility] 03-05-2025 History of Presen t illness Narrative Images from the original note were not included. PHYSICAL THERAPY [facility] Treatment Note Name/MRN: Jair Snyder ([id number]) Date of : 1965 Age: 59 y.o. [...] of gait: antalgic, uneven step length, slow sadia Balance: stance unsupported min assist, lateral instability. [...] any questions or concerns Bree Molina APRN ASSOCIATE A-G WIRE TWISTER [facility] [phone] I reviewed with ELECTRICAL APPLIANCE REPAIRER-ASSOCIATE the medical history and the findings on physical examination. I discussed the patient s diagnosis and concur with the treatment plan as documented in his note. Please call [phone] or message me through [employer] with any questions or concerns. [facility] Anticoagulation Management Service ([facility]) Inpatient Warfarin Consult HPI: Jun Snyder is a 59 y.o. male admitted on 02/20/2025 for Hemoptysis [R04.2]. Medical History[1] Patient is on warfarin for mechanical AVR and has a goal INR 2.0 - 3.0. Patient was referred to [facility], but so far has been managed at facilities, most recently [facility]. Pt's home dose of warfarin is [...] 6 1.8 7.5mg 6/8 1.5 7.5 mg 6 1.6 6 mg 03/02 1.4 5mg 6 [...] Center [facility] Consult Service is available daily [phone] via [employer] Secure Chat. [1] Past Medical History: Diagnosis Date Acute renal failure (ARF) ([facility]) 10/19/2019 Anemia 12/30/2021 Calcification of abdominal aorta ([facility]) 10/08/202309/[address] abd Diverticulosis 10/08/2023 ESRD on hemodialysis ([facility]) ([facility]) 10/26/2019 Hemodialysis patient ([facility]) ([facility]) HTN (hypertension) 12/01/2022 Hypertension IgA nephropathy IgA [...] - [facility] ([facility]) 03/05/2025 7:13 AM [phone]: Please page me for patient care issues. [phone]: Please page [facility] - [facility] for any issues. Subjective and Objective: Admit [...] was bright red and 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 Adult diet Regular Dietary [...] - (0 mL/kg) Weight: 60.8 kg @IODETAILS@ @[id number]@ Medications: Continuous Meds[1] Scheduled Meds[2] Recent Labs [...] "CHOL" No results found for: "PHART", "PO2ART", "IAW2HXP" Recent Labs 03/04/25 0156 03/04/25 0946 03/05/25 [...] stable for discharge - Location - [facility] ([facility]) - Pending the following - dispo, Oxy [...] DO Division of Hospitalist Medicine Inpatient Medical Services/[facility] [1] heparin, 5-30 Units/kg/hr, Last Rate: 21 [...] original note were not included. PHYSICAL THERAPY [facility] Name/MRN: Jair Snyder ([id number]) Date: 03/04/2025 Attempted to initiate PT this [...] - [facility] ([facility]) 03/04/2025 9:11 AM [phone]: Please page me for patient care issues. [phone]: Please page [facility] - [facility] for any issues. Subjective and Objective: Admit [...] was bright red and 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 Adult diet Regular Dietary [...] - (0 mL/kg) Weight: 60.8 kg @IODETAILS@ @[id number]@ Medications: Continuous Meds[1] Scheduled Meds[2] Recent Labs 03/02/25 0004 03/03/252 03/04/25 0156 WBC 7.4 8.9 7.7 HGB [...] "CHOL" No results found for: "PHART", "PO2ART", "DVX1YQQ" Recent Labs 03/02/25 0004 03/03/25 0212 03/04/25 [...] - 03/04 - 05/05 - Location - [facility] ([facility]) - Pending the following - INR 1.8, [...] DO Division of Hospitalist Medicine Inpatient Medical Services/[facility] [1] heparin, 5-30 Units/kg/hr, Last Rate: 20 [...] electrolyte and CBC daily Maryam Marcelo DO [facility] Anticoagulation Management Service ([facility]) Inpatient Warfarin Consult HPI: Jun Snyder is a 59 y.o. male admitted on 02/20/2025 for Hemoptysis [R04.2]. Medical History[1] Patient is on warfarin for mechanical AVR and has a goal INR 2.0 - 3.0. Patient was referred to [facility], but so far has been managed at facilities, most recently [facility]. Pt's home dose of warfarin is [...] Date INR Dose 03/04 1.5 7.5 mg 6/ 1.6 6 mg 03/02 1.4 5mg 6/ 1.4 4mg 02/28 1.3 3mg 02/27 1.3 [...] PharmD [facility] Consult Service is available daily [phone] via [employer] Secure Chat. [1] Past Medical History: Diagnosis Date Acute renal failure (ARF) ([facility]) 10/19/2019 Anemia 12/30/2021 Calcification of abdominal aorta ([facility]) 10/08/202309/[address] abd Diverticulosis 10/08/2023 ESRD on hemodialysis ([facility]) ([facility]) 10/26/2019 Hemodialysis patient ([facility]) ([facility]) HTN (hypertension) 12/01/2022 Hypertension IgA nephropathy IgA nephropathy determined by biopsy of kidney 10/26/2019 Missed vaccination due to patient refusal 10/08/2023 Has a number of non-scientific based beliefs which interfere with his understanding and acceptance of the medical benefit of vaccination. Nonrheumatic aortic valve stenosis 10/08/2023 Paroxysmal A-fib ([facility]) ([facility]) 08/18/2023 Tobacco abuse 10/08/2023 Hospitalist Progress Note - [facility] ([facility]) 03/03/2025 8:37 AM [phone]: Please page me for patient care issues. [phone]: Please page [facility] - [facility] for any issues. Subjective and Objective: Admit [...] was bright red and 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 Adult diet Regular Dietary [...] (0.4 mL/kg) [Drains:25] Weight: 60.8 kg @IODETAILS@ @[id number]@ Medications: Continuous Meds[1] Scheduled Meds[2] Recent Labs [...] "CHOL" No results found for: "PHART", "PO2ART", "RYA0XQA" Recent Labs 03/01/25 0003 03/02/25 0004 03/03/25 [...] - Date - 03/04 - Location - [facility] ([facility]) - Pending the following - INR 1.8, [...] DO Division of Hospitalist Medicine Inpatient Medical Services/[facility] [1] heparin, 5-30 Units/kg/hr, Last Rate: 20 [...] Intake/Output Summary (Last 24 hours) at 03/02/2025 0882 Last data filed at 03/02/2025 0639 Gross [...] any questions or concerns Bree Molina APRN ASSOCIATE A-G WIRE TWISTER [facility] [phone] Pt seen and examined independently by me. I reviewed with ELECTRICAL APPLIANCE REPAIRER-ASSOCIATE the medical history and the findings on physical examination. I discussed the patient s diagnosis and concur with the treatment plan as documented in his note. Please call [phone] or message me through [employer] with any questions or concerns. Hospitalist Progress Note - [facility] ([facility]) 03/02/2025 8:20 AM [phone]: Please page me for patient care issues. [phone]: Please page [facility] - [facility] for any issues. Subjective and Objective: Admit [...] was bright red and 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 Adult diet Regular Dietary [...] (0.7 mL/kg) [Drains:40] Weight: 60.8 kg @IODETAILS@ @[id number]@ Medications: Continuous Meds[1] Scheduled Meds[2] Recent Labs [...] "CHOL" No results found for: "PHART", "PO2ART", "QVJ1INI" Recent Labs 02/28/25 0004 03/01/25 0003 03/02/25 [...] Date - 03/03 - Location - [facility] ([facility]) - Pending the following - INR 1.8, [...] DO Division of Hospitalist Medicine Inpatient Medical Services/[facility] [1] heparin, 5-30 Units/kg/hr, Last Rate: 19 Units/kg/hr (03/02/25 0813) [2] B complex-vitamin C-folic acid, 1 capsule, Oral, Daily metoprolol tartrate, 25 mg, Oral, BID pantoprazole, 40 mg, Oral, BID AC piperacillin-tazobactam, 2,250 mg, IntraVENous, q6h QUEtiapine, 25 mg, Oral, Nightly sevelamer carbonate, 800 mg, Oral, TID WC warfarin, 5 mg, Oral, Once [facility] Anticoagulation Management Service ([facility]) Inpatient Warfarin Consult HPI: Jun Snyder is a 59 y.o. male admitted on 02/20/2025 for Hemoptysis [R04.2]. Medical History[1] Patient is on warfarin for mechanical AVR and has a goal INR 2.0 - 3.0. Patient was referred to [facility], but so far has been managed at facilities, most recently [facility]. Pt's home dose of warfarin is [...] Dose 03/01 1.4 5mg 03/01 1.4 4mg 6/4 1.3 3mg 02/27 1.3 2mg 02/26 1.3 [...] RPh [facility] Consult Service is available daily [phone] via [employer]. [1] Past Medical History: Diagnosis Date Acute renal failure (ARF) ([facility]) 10/19/2019 Anemia 12/30/2021 Calcification of abdominal aorta ([facility]) 10/08/202309/[address] abd Diverticulosis 10/08/2023 ESRD on hemodialysis ([facility]) ([facility]) 10/26/2019 Hemodialysis patient ([facility]) ([facility]) HTN (hypertension) 12/01/2022 Hypertension IgA nephropathy IgA nephropathy determined by biopsy of kidney 10/26/2019 Missed vaccination due to patient refusal 10/08/2023 Has a number of non-scientific based beliefs which interfere with his understanding and acceptance of the medical benefit of vaccination. Nonrheumatic aortic valve stenosis 10/08/2023 Paroxysmal A-fib ([facility]) ([facility]) 08/18/2023 Tobacco abuse 10/08/2023 Images from the original note were not included. PHYSICAL THERAPY [facility] Treatment Note Name/MRN: Jair Snyder ([id number]) Date of : 1965 Age: 59 y.o. [...] Timed Code Treatment Minutes: (gt-fa) Merlene León, REGIONAL PROJECT MANAGER Cosigned by Anthony Black PT at 03/01/2025 4:34 PM EDT Associated attestation - Anthony Black PT - 03/01/2025 4:34 PM EDT Did not have opportunity today to speak to REGIONAL PROJECT MANAGER re: recommendation. Mobility appears to be consistent with homegoing, but know that medical conditions and other factors clearly could influence recommendations. Images from the original note were not included. OCCUPATIONAL THERAPY [facility] Treatment Note Name/MRN: Jair Snyder ([id number]) Date of : 1965 Age: 59 y.o. [...] with any questions or concerns Bree Molina ELECTRICAL APPLIANCE REPAIRER ASSOCIATE A-G WIRE TWISTER [facility] [phone] Pt seen and examined independently by me. I reviewed with Jun Maki, the medical history and the findings on physical examination. I discussed the patient s diagnosis and concur with the treatment plan as documented in his note. Please call [phone] or message me through [employer] with any questions or concerns. Hospitalist Progress Note - [facility] ([facility] 03/01/2025 9:51 AM [phone]: Please page me for patient care issues. [phone]: Please page [facility] Hospitalist - [facility] for any issues. Subjective and Objective: Admit [...] was bright red and 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 Adult diet Regular Dietary Orders (From admission, onward) Start Ordered 02/27/25 1254 Supplement:Breakfast, Dinner; Nepro w/CARB Steady Until discontinued Question Answer Comment Frequency Breakfast Frequency Dinner Select supplement: Nepro w/CARB Steady 02/27/25 1254 02/21/25 1021 Adult diet Regular Diet effective now Question: Diet type Answer: Regular 02/21/25 1021 No intake/output data recorded. @IODETAILS@ @[id number]@ Medications: Continuous Meds[1] Scheduled Meds[2] Recent Labs [...] "CHOL" No results found for: "PHART", "PO2ART", "EUE0NLZ" Recent Labs 02/27/250 02/28/25 0004 03/01/25 0003 INR 1.3* 1.3* [...] - 03/01 - 03/02 - Location - [facility] ([facility]) - Pending the following - INR 1.8, [...] DO Division of Hospitalist Medicine Inpatient Medical Services/[facility] [1] heparin, 5-30 Units/kg/hr, Last Rate: 18 Units/kg/hr (03/01/25 0729) [2] B complex-vitamin C-folic acid, 1 capsule, Oral, Daily metoprolol tartrate, 25 mg, Oral, BID pantoprazole, 40 mg, Oral, BID AC piperacillin-tazobactam, 2,250 mg, IntraVENous, q6h QUEtiapine, 25 mg, Oral, Nightly sevelamer carbonate, 800 mg, Oral, TID WC warfarin, 4 mg, Oral, Once Images from the original note were not included. PHYSICAL THERAPY [facility] Name/MRN: Jair Snyder ([id number]) Date: 03/01/2025 Leaving for dialysis. Return later time/date for PT. Merlene León REGIONAL PROJECT MANAGER Cosigned by Anthony Black PT at 03/01/2025 8:[address] [facility] Anticoagulation Management Service ([facility]) Inpatient Warfarin Consult HPI: Jun Snyder is a 59 y.o. male admitted on 02/20/2025 for Hemoptysis [R04.2]. Medical History[1] Patient is on warfarin for mechanical AVR and has a goal INR 2.0 - 3.0. Patient was referred to [facility], but so far has been managed at facilities, most recently [facility]. Pt's home dose of warfarin is [...] Center [facility] Consult Service is available daily [phone] via [employer] Secure Chat. [1] Past Medical History: Diagnosis Date Acute renal failure (ARF) ([facility]) 10/19/2019 Anemia 12/30/2021 Calcification of abdominal aorta ([facility]) 10/08/202309/[address] abd Diverticulosis 10/08/2023 ESRD on hemodialysis ([facility]) ([facility]) 10/26/2019 Hemodialysis patient ([facility]) ([facility]) HTN (hypertension) 12/01/2022 Hypertension IgA nephropathy IgA nephropathy determined by biopsy of kidney 10/26/2019 Missed vaccination due to patient refusal 10/08/2023 Has a number of non-scientific based beliefs which interfere with his understanding and acceptance of the medical benefit of vaccination. Nonrheumatic aortic valve stenosis 10/08/2023 Paroxysmal A-fib ([facility]) ([facility]) 08/18/2023 Tobacco abuse 10/08/2023 Nephrology Progress Note [...] any questions or concerns Bree Molina APRN ASSOCIATE A-G WIRE TWISTER [facility] [phone] Pt seen and examined independently by me. I reviewed with ELECTRICAL APPLIANCE REPAIRER-ASSOCIATE the medical history and the findings on physical examination. I discussed the patient s diagnosis and concur with the treatment plan as documented in his note. Please call [phone] or message me through [employer]PEK with any questions or concerns. Hospitalist Progress Note - [facility] ([facility]) 02/28/2025 8:23 AM [phone]: Please page me for patient care issues. [phone]: Please page [facility] Hospital[facility] - [facility] for any issues. Subjective and Objective: Admit [...] was bright red and 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 Adult diet Regular Dietary [...] [Urine:450 (0.2 mL/kg/hr)] Weight: 60.8 kg @IODETAILS@ @[id number]@ Medications: Continuous Meds[1] Scheduled Meds[2] Recent Labs [...] "CHOL" No results found for: "PHART", "PO2ART", "DHE0UQK" Recent Labs 02/25/25 2345 02/27/25 0010 02/28/25 [...] 03/01 - 03/02 - Location - SNF ([facility]) - Pending the following - [...] DO Division of Hospitalist Medicine Inpatient Medical Services/[facility] [1] heparin, 5-30 Units/kg/hr, Last Rate: 18 Units/kg/hr (02/28/25 0714) [2] B complex-vitamin C-folic acid, 1 capsule, Oral, Daily metoprolol tartrate, 25 mg, Oral, BID pantoprazole, 40 mg, Oral, qAM AC piperacillin-tazobactam, 4,500 mg, IntraVENous, q8h QUEtiapine, 25 mg, Oral, Nightly sevelamer carbonate, 800 mg, Oral, TID WC warfarin, 3 mg, Oral, Once Images from the original note were not included. [facility] Progress Note Jun Snyder AGE: [...] for pain with pain medication, per staff respiratory therapist, prior to wound VAC dressing change. Wet [...] apply Betadine and allow to dry, leave LATEX THREAD MACHINE OPERATOR daily and PRN Left plantar heel [...] to follow Recommend to follow up at [facility] Outpatient wound care center after [...] History: Diagnosis Date Acute renal failure (ARF) ([facility]) 10/19/2019 Anemia 12/30/2021 Calcification of abdominal aorta ([facility]) 10/08/202309/[address] abd Diverticulosis 10/08/2023 ESRD on hemodialysis ([facility]) ([facility]) 10/26/2019 Hemodialysis patient ([facility]) ([facility]) HTN (hypertension) 12/01/2022 Hypertension IgA nephropathy IgA nephropathy determined by biopsy of kidney 10/26/2019 Missed vaccination due to patient refusal 10/08/2023 Has a number of non-scientific based beliefs which interfere with his understanding and acceptance of the medical benefit of vaccination. Nonrheumatic aortic valve stenosis 10/08/2023 Paroxysmal A-fib ([facility]) ([facility]) 08/18/2023 Tobacco abuse 10/08/2023 [2] Past Surgical History: Procedure Laterality Date APPENDECTOMY CARDIAC CATHETERIZATION N/A 10/09/2024 Performed by Bob Watson MD at [facility] Cardiac Cath/EP Lab CARDIAC CATHETERIZATION Bilateral 11/01/2024 Performed by Bob Watson MD at [facility] Cardiac Cath/EP Lab CARDIAC CATHETERIZATION N/A 11/01/2024 Performed by Bob Watson MD at [facility] Cardiac Cath/EP Lab COLONOSCOPY N/A 01/24/2025 Performed by Chadd Davis MD at [facility] ENDOSCOPY FISTULAGRAM (HISTORICAL) Left 09/15/2021 LEFT UPPER ARM HX AV FISTULA CREATION IR EMBOLIZATION 10/14/2024 IR EMBOLIZATION 10/14/2024 [facility] SPECIAL PROCEDURES IR FISTULAGRAM 08/07/2022 IR FISTULAGRAM 08/07/2022 [facility] IR IMAGING TONSILLECTOMY (HISTORICAL) [3] [...] Gill DO at 03/01/2025 2:[address] [facility] Anticoagulation Management Service ([facility]) Inpatient Warfarin Consult HPI: Jun Snyder is a 59 y.o. male admitted on 02/20/2025 for Hemoptysis [R04.2]. Medical History[1] Patient is on warfarin for mechanical AVR and has a goal INR 2.0 - 3.0. Patient was referred to [facility], but so far has been managed at facilities, most recently [facility]. Pt's home dose of warfarin is [...] RPh [facility] Consult Service is available daily [phone] via [employer] Secure Chat. [1] Past Medical History: Diagnosis Date Acute renal failure (ARF) ([facility]) 10/19/2019 Anemia 12/30/2021 Calcification of abdominal aorta ([facility]) 10/08/202309/[address] abd Diverticulosis 10/08/2023 ESRD on hemodialysis ([facility]) ([facility]) 10/26/2019 Hemodialysis patient ([facility]) ([facility]) HTN (hypertension) 12/01/2022 Hypertension IgA nephropathy IgA nephropathy determined by biopsy of kidney 10/26/2019 Missed vaccination due to patient refusal 10/08/2023 Has a number of non-scientific based beliefs which interfere with his understanding and acceptance of the medical benefit of vaccination. Nonrheumatic aortic valve stenosis 10/08/2023 Paroxysmal A-fib ([facility]) ([facility]) 08/18/2023 Tobacco abuse 10/08/2023 Nephrology Progress Note [...] from the original note were not included. [facility] - Infectious Diseases Attending Progress [...] Total Energy Requirements (kcals/day): 30-35 kcal/kg = 7019-6745 kcal Weight Used for Protein Requirements: Current [...] lb) (08/28/24) % Weight Change (Calculated): -34.6 [place] Body Weight (lbs) (Calculated): 166 lbs [place] Body Weight (Kg) (Calculated): 75 kg % [place] Body Weight (Calculated): 81.1 % BMI (kg/m2) [...] to determine Glenys Juares RD, LD Contact: [phone] Images from the original note were not included. PHYSICAL THERAPY [facility] Name/MRN: Jair Snyder ([id number]) Date: 02/27/2025 Request for "see today" note, [...] Anthony Black PT Hospitalist Progress Note - [facility] ([facility]) 02/27/2025 9:03 AM [phone]: Please page me for patient care issues. [phone]: Please page [facility] Hospital[facility] - [facility] for any issues. Subjective and Objective: Admit [...] was bright red and 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 Adult diet Regular Dietary Orders (From admission, onward) Start Ordered 02/21/25 1021 Adult diet Regular Diet effective now Question: Diet type Answer: Regular 02/21/25 1021 I/O last 3 completed shifts: In: 750 (12.3 mL/kg) [P.O.:750] Out: 450 (7.4 mL/kg) [Urine:450 (0.2 mL/kg/hr)] Weight: 60.8 kg @IODETAILS@ @[id number]@ Medications: Continuous Meds[1] Scheduled Meds[2] Recent Labs [...] "CHOL" No results found for: "PHART", "PO2ART", "YAP2ATZ" Recent Labs 02/25/25 0028 02/25/25 2345 02/27/25 [...] DO Division of Hospitalist Medicine Inpatient Medical Services/[facility] [1] heparin, 5-30 Units/kg/hr, Last Rate: 18 Units/kg/hr (02/27/25 0722) [2] B complex-vitamin C-folic acid, 1 capsule, Oral, Daily metoprolol tartrate, 25 mg, Oral, BID pantoprazole, 40 mg, Oral, qAM AC piperacillin-tazobactam, 4,500 mg, IntraVENous, q8h QUEtiapine, 25 mg, Oral, Nightly sevelamer carbonate, 800 mg, Oral, TID WC warfarin, 2 mg, Oral, Once [facility] Anticoagulation Management Service ([facility]) Inpatient Warfarin Consult HPI: Jun Snyder is a 59 y.o. male admitted on 02/20/2025 for Hemoptysis [R04.2]. Medical History[1] Patient is on warfarin for mechanical AVR and has a goal INR 2.0 - 3.0. Patient was referred to [facility], but so far has been managed at facilities, most recently [facility]. Pt's home dose of warfarin is [...] Center [facility] Consult Service is available daily [phone] via [employer] Secure Chat. [1] Past Medical History: Diagnosis Date Acute renal failure (ARF) ([facility]) 10/19/2019 Anemia 12/30/2021 Calcification of abdominal aorta ([facility]) 10/08/202309/[address] abd Diverticulosis 10/08/2023 ESRD on hemodialysis ([facility]) ([facility]) 10/26/2019 Hemodialysis patient ([facility]) ([facility]) HTN (hypertension) 12/01/2022 Hypertension IgA nephropathy IgA nephropathy determined by biopsy of kidney 10/26/2019 Missed vaccination due to patient refusal 10/08/2023 Has a number of non-scientific based beliefs which interfere with his understanding and acceptance of the medical benefit of vaccination. Nonrheumatic aortic valve stenosis 10/08/2023 Paroxysmal A-fib ([facility]) ([facility]) 08/18/2023 Tobacco abuse 10/08/2023 Images from the original note were not included. OCCUPATIONAL THERAPY [facility] Initial Evaluation Name/MRN: Jair Snyder ([id number]) Evaluation Date: 02/26/2025 Date of : 1965 Admission Date: 02/20/2025 5:41 PM Age: 59 y.o. 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 Acute respiratory failure with hypoxia ([facility]) [J96.01] 01/08/2025 Tracheostomy care ([facility]) [Z43.0] 01/08/2025 Pulmonary embolism ([facility]) 01/08/2025 Sacral osteomyelitis ([facility]) ([facility]) 01/03/2025 Pneumonia of both lungs due to methicillin susceptible Staphylococcus aureus (MSSA) ([facility]) 01/01/2025 Leukocytosis 12/30/2024 Decubitus ulcer of sacral region, unstageable ([facility]) 12/30/2024 Peritonitis due to fungus ([facility]) 11/30/2024 History of abdominal surgery 11/30/2024 Leg DVT (deep venous thromboembolism), acute, left ([facility]) 11/30/2024 Ischemic ulcer of toe of left foot, limited to breakdown of skin ([facility]) 11/30/2024 Tracheostomy dependence ([facility]) 11/30/2024 Pleural effusion 11/28/2024 Gastric ulceration 2024 Atrial flutter, unspecified type ([facility]) 10/03/2024 RSV (acute bronchiolitis due to respiratory syncytial virus) 10/03/2024 Diverticulosis 10/08/2023 Nonrheumatic aortic valve stenosis 10/08/2023 Calcification of abdominal aorta ([facility]) 10/08/2023 Missed vaccination due to patient refusal 10/08/2023 Tobacco abuse 10/08/2023 Alcohol use disorder in remission 10/08/2023 Paroxysmal A-fib ([facility]) ([facility]) 08/18/2023 HTN (hypertension) 12/01/2022 ESRD on hemodialysis ([facility]) ([facility]) 10/26/2019 IgA nephropathy determined by biopsy of kidney 10/26/2019 BRBPR (bright red blood per rectum) 01/19/2025 Aortic stenosis 10/03/2024 Upper GI bleed 10/03/2024 S/P AVR 10/03/2024 Acute hypoxic respiratory failure ([facility]) 10/03/2024 Acute encephalopathy 10/03/2024 Pneumoperitoneum 10/03/2024 Anemia [...] of Care supervision is transferred to a [facility] Therapy Services Occupational Therapist. Goals and/or treatment plan was established in collaboration with patient/family/other representatives. Ro Sales MS, OTR/L [1] Past Medical History: Diagnosis Date Acute renal failure (ARF) ([facility]) 10/19/2019 Anemia 12/30/2021 Calcification of abdominal aorta ([facility]) 10/08/202309/[address] abd Diverticulosis 10/08/2023 ESRD on hemodialysis ([facility]) ([facility]) 10/26/2019 Hemodialysis patient ([facility]) ([facility]) HTN (hypertension) 12/01/2022 Hypertension IgA nephropathy IgA nephropathy determined by biopsy of kidney 10/26/2019 Missed vaccination due to patient refusal 10/08/2023 Has a number of non-scientific based beliefs which interfere with his understanding and acceptance of the medical benefit of vaccination. Nonrheumatic aortic valve stenosis 10/08/2023 Paroxysmal A-fib ([facility]) ([facility]) 08/18/2023 Tobacco abuse 10/08/2023 [2] Past Surgical History: Procedure Laterality Date APPENDECTOMY CARDIAC CATHETERIZATION N/A 10/09/2024 Performed by Bob Watson MD at [facility] Cardiac Cath/EP Lab CARDIAC CATHETERIZATION Bilateral 11/01/2024 Performed by Bob Watson MD at [facility] Cardiac Cath/EP Lab CARDIAC CATHETERIZATION N/A 11/01/2024 Performed by Bob Watson MD at [facility] Cardiac Cath/EP Lab COLONOSCOPY N/A 01/24/2025 Performed by Chadd Davis MD at [facility] ENDOSCOPY FISTULAGRAM (HISTORICAL) Left 09/15/2021 LEFT UPPER ARM HX AV FISTULA CREATION IR EMBOLIZATION 10/14/2024 IR EMBOLIZATION 10/14/2024 [facility] SPECIAL PROCEDURES IR FISTULAGRAM 08/07/2022 IR FISTULAGRAM 08/07/2022 [facility] IR IMAGING TONSILLECTOMY (HISTORICAL) Hospitalist [...] bilateral pleural effusions. 5. Cholelithiasis, and diminutive [place] kidneys. Seen by pulm service Started on [...] controlled No CP Adult diet Regular @IODETAILS@ @[id number]@ Medications: Continuous Meds[1] Scheduled Meds[2] Recent Labs [...] Advance Directive: Full Code Ramón Romano MD, [facility] Hospitalist [1] heparin, 5-30 Units/kg/hr, Last [...] any questions or concerns Bree Molina APRN ASSOCIATE A-G WIRE TWISTER [facility] [phone] Pt seen and examined independently by me. I reviewed with, DENIA-SAMIA the medical history and the findings on physical examination. I discussed the patient s diagnosis and concur with the treatment plan as documented in his note. Please call [phone] or message me through [employer] with any questions or concerns. PULMONOLOGY CONSULT [...] from the original note were not included. [facility] Progress Note Jun Snyder AGE: [...] for pain with pain medication, per staff respiratory therapist, prior to wound VAC dressing change. Wet [...] apply Betadine and allow to dry, leave LATEX THREAD MACHINE OPERATOR daily and PRN Left plantar heel - unstageable pressure injury (POA): -cleanse with NS, apply Betadine and allow to dry, leave LATEX THREAD MACHINE OPERATOR daily and PRN Right wrist Abrasion: -cleanse with antibacterial soap/water, leave LATEX THREAD MACHINE OPERATOR daily Sacral Stage 4 pressure injury [...] to follow Recommend to follow up at [facility] Outpatient wound care center after [...] History: Diagnosis Date Acute renal failure (ARF) ([facility]) 10/19/2019 Anemia 12/30/2021 Calcification of abdominal aorta ([facility]) 10/08/202309/[address] abd Diverticulosis 10/08/2023 ESRD on hemodialysis ([facility]) ([facility]) 10/26/2019 Hemodialysis patient ([facility]) ([facility]) HTN (hypertension) 12/01/2022 Hypertension IgA nephropathy IgA nephropathy determined by biopsy of kidney 10/26/2019 Missed vaccination due to patient refusal 10/08/2023 Has a number of non-scientific based beliefs which interfere with his understanding and acceptance of the medical benefit of vaccination. Nonrheumatic aortic valve stenosis 10/08/2023 Paroxysmal A-fib ([facility]) ([facility]) 08/18/2023 Tobacco abuse 10/08/2023 [2] Past Surgical History: Procedure Laterality Date APPENDECTOMY CARDIAC CATHETERIZATION N/A 10/09/2024 Performed by Bob Watson MD at [facility] Cardiac Cath/EP Lab CARDIAC CATHETERIZATION Bilateral 11/01/2024 Performed by Bob Watson MD at [facility] Cardiac Cath/EP Lab CARDIAC CATHETERIZATION N/A 11/01/2024 Performed by Bob Watson MD at [facility] Cardiac Cath/EP Lab COLONOSCOPY N/A 01/24/2025 Performed by Chadd Davis MD at [facility] ENDOSCOPY FISTULAGRAM (HISTORICAL) Left 09/15/2021 LEFT UPPER ARM HX AV FISTULA CREATION IR EMBOLIZATION 10/14/2024 IR EMBOLIZATION 10/14/2024 [facility] SPECIAL PROCEDURES IR FISTULAGRAM 08/07/2022 IR FISTULAGRAM 08/07/2022 [facility] IR IMAGING TONSILLECTOMY (HISTORICAL) [3] [...] needed (PRN constipation). [DISCONTINUED] epoetin rowan-epbx (Retacrit) 63291 UNIT/ML injection Inject 0.79 mL (7,900 Units) under the skin 1 (one) time per week. (Patient not taking: Reported on 02/21/2025) [DISCONTINUED] pantoprazole (ProtoNix) 40 MG injection Infuse 40 mg into a venous catheter 2 times daily. Cosigned by Ahsan Gill DO at 02/26/2025 4:[address] [facility] Anticoagulation Management Service ([facility]) Inpatient Warfarin Consult HPI: Jun Snyder is a 59 y.o. male admitted on 02/20/2025 for Hemoptysis [R04.2]. Medical History[1] Patient is on warfarin for mechanical AVR and has a goal INR 2.0 - 3.0. Patient was referred to [facility], but so far has been managed at facilities, most recently [facility]. Pt's home dose of warfarin is [...] RPh [facility] Consult Service is available daily [phone] via [employer]. [1] Past Medical History: Diagnosis Date Acute renal failure (ARF) ([facility]) 10/19/2019 Anemia 12/30/2021 Calcification of abdominal aorta ([facility]) 10/08/202309/[address] abd Diverticulosis 10/08/2023 ESRD on hemodialysis ([facility]) ([facility]) 10/26/2019 Hemodialysis patient ([facility]) ([facility]) HTN (hypertension) 12/01/2022 Hypertension IgA nephropathy IgA nephropathy determined by biopsy of kidney 10/26/2019 Missed vaccination due to patient refusal 10/08/2023 Has a number of non-scientific based beliefs which interfere with his understanding and acceptance of the medical benefit of vaccination. Nonrheumatic aortic valve stenosis 10/08/2023 Paroxysmal A-fib ([facility] [facility] ([facility]) 08/18/2023 Tobacco abuse 10/08/2023 Nephrology Progress Note [...] original note were not included. PHYSICAL THERAPY [facility] Initial Evaluation Name/MRN: Jair Snyder ([id number]) Evaluation Date: 02/25/2025 Date of : 1965 Admission Date: 02/20/2025 5:41 PM Age: 59 y.o. Room/Bed: [facility] A Discharge Recommendation: Nursing Home Facility Equipment [...] Complication of tracheostomy (CMS/HCC) (HCC) 01/19/2025 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 01/12/2025 Acute respiratory failure with hypoxia ([facility]) [J96.01] 01/08/2025 Tracheostomy care ([facility]) [Z43.0] 01/08/2025 Pulmonary embolism ([facility]) 01/08/2025 Sacral osteomyelitis ([facility] ([facility]) 01/03/2025 Pneumonia of both lungs due to methicillin susceptible Staphylococcus aureus (MSSA) ([facility]) 01/01/2025 Leukocytosis 12/30/2024 Decubitus ulcer of sacral region, unstageable ([facility]) 12/30/2024 Peritonitis due to fungus ([facility]) 11/30/2024 History of abdominal surgery 11/30/2024 Leg DVT (deep venous thromboembolism), acute, left ([facility]) 11/30/2024 Ischemic ulcer of toe of left foot, limited to breakdown of skin ([facility]) 11/30/2024 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[facility]) 11/30/2024 Pleural effusion 11/28/2024 Gastric ulceration 2024 Atrial flutter, unspecified type ([facility]) 10/03/2024 RSV (acute bronchiolitis due to respiratory syncytial virus) 10/03/2024 Diverticulosis 10/08/2023 Nonrheumatic aortic valve stenosis 10/08/2023 Calcification of abdominal aorta ([facility]) 10/08/2023 Missed vaccination due to patient refusal 10/08/2023 Tobacco abuse 10/08/2023 Alcohol use disorder in remission 10/08/2023 Paroxysmal A-fib ([facility]) ([facility]) 08/18/2023 HTN (hypertension) 12/01/2022 ESRD on hemodialysis ([facility]) ([facility]) 10/26/2019 IgA nephropathy determined by biopsy of kidney 10/26/2019 BRBPR (bright red blood per rectum) 01/19/2025 Aortic stenosis 10/03/2024 Upper GI bleed 10/03/2024 S/P AVR 10/03/2024 Acute hypoxic respiratory failure ([facility]) 10/03/2024 Acute encephalopathy 10/03/2024 Pneumoperitoneum 10/03/2024 Anemia [...] of Care supervision is transferred to a [facility] Therapy Services Physical Therapist. Goals and/or treatment plan was established in collaboration with patient/family/other representatives. [1] Past Medical History: Diagnosis Date Acute renal failure (ARF) ([facility]) 10/19/2019 Anemia 12/30/2021 Calcification of abdominal aorta ([facility]) 10/08/202309/[address] abd Diverticulosis 10/08/2023 ESRD on hemodialysis ([facility]) ([facility]) 10/26/2019 Hemodialysis patient ([facility]) ([facility]) HTN (hypertension) 12/01/2022 Hypertension IgA nephropathy IgA nephropathy determined by biopsy of kidney 10/26/2019 Missed vaccination due to patient refusal 10/08/2023 Has a number of non-scientific based beliefs which interfere with his understanding and acceptance of the medical benefit of vaccination. Nonrheumatic aortic valve stenosis 10/08/2023 Paroxysmal A-fib ([facility]/HCC) (HCC) 08/18/2023 Tobacco abuse 10/08/2023 [2] Past Surgical History: Procedure Laterality Date APPENDECTOMY CARDIAC CATHETERIZATION N/A 10/09/2024 Performed by Bob Watson MD at [facility] Cardiac Cath/EP Lab CARDIAC CATHETERIZATION Bilateral 11/01/2024 Performed by Bob Watson MD at [facility] Cardiac Cath/EP Lab CARDIAC CATHETERIZATION N/A 11/01/2024 Performed by Bob Watson MD at [facility] Cardiac Cath/EP Lab COLONOSCOPY N/A 01/24/2025 Performed by Chadd Davis MD at [facility] ENDOSCOPY FISTULAGRAM (HISTORICAL) Left 09/15/2021 LEFT UPPER ARM HX AV FISTULA CREATION IR EMBOLIZATION 10/14/2024 IR EMBOLIZATION 10/14/2024 [facility] SPECIAL PROCEDURES IR FISTULAGRAM 08/07/2022 IR FISTULAGRAM 08/07/2022 [facility] IR IMAGING TONSILLECTOMY (HISTORICAL) Hospitalist [...] bilateral pleural effusions. 5. Cholelithiasis, and diminutive paiute-shoshone kidneys. Seen by pulm service Started on IV abx Started on heparin gtt as well Interval History: pt feels ok Some dizziness at times No more bleeding issues 02/23 Pt awake Reports his PEG is uncomfortable-- wants removed if able No CP 02/24 Pt awake Some cough at times Sob better 02/25 Pt awake No sob today No CP Adult diet Regular @IODETAILS@ @[email or web address]@ Medications: Continuous Meds[1] Scheduled Meds[2] Recent Labs [...] TID WC warfarin, 1.5 mg, Oral, Once [facility] Anticoagulation Management Service ([facility]) Inpatient Warfarin Consult HPI: Jun Snyder is a 59 y.o. male admitted on 02/20/2025 for Hemoptysis [R04.2]. Medical History[1] Patient is on warfarin for mechanical AVR and has a goal INR 2.0 - 3.0. Patient was referred to [facility], but so far has been managed at facilities, most recently [facility]. Pt's home dose of warfarin is [...] PharmD [facility] Consult Service is available daily [phone] via [employer] Secure Chat. [1] Past Medical History: Diagnosis Date Acute renal failure (ARF) ([facility]) 10/19/2019 Anemia 12/30/2021 Calcification of abdominal aorta ([facility]) 10/08/202309/[address] abd Diverticulosis 10/08/2023 ESRD on hemodialysis ([facility] ([facility]) 10/26/2019 Hemodialysis patient ([facility] ([facility]) HTN (hypertension) 12/01/2022 Hypertension IgA nephropathy IgA [...] from the original note were not included. [facility] - Infectious Diseases Attending Progress [...] bilateral pleural effusions. 5. Cholelithiasis, and diminutive paiute-shoshone kidneys. Seen by pulm service Started on IV abx Started on heparin gtt as well Interval History: pt feels ok Some dizziness at times No more bleeding issues 02/23 Pt awake Reports his PEG is uncomfortable-- wants removed if able No CP 02/24 Pt awake Some cough at times Sob better Adult diet Regular @IODETAILS@ @[email or web address]@ Medications: Continuous Meds[1] Scheduled Meds[2] Recent Labs [...] intermittent dosing (placeholder), , Other, RX Placeholder [facility] Anticoagulation Management Service ([facility]) Inpatient Warfarin Consult HPI: Jun Snyder is a 59 y.o. male admitted on 02/20/2025 for Hemoptysis [R04.2]. Medical History[1] Patient is on warfarin for mechanical AVR and has a goal INR 2.0 - 3.0. Patient was referred to [facility], but so far has been managed at facilities, most recently [facility]. Pt's home dose of warfarin is [...] PharmD [facility] Consult Service is available daily [phone] via [employer] Secure Chat. [1] Past Medical History: Diagnosis Date Acute renal failure (ARF) ([facility]) 10/19/2019 Anemia 12/30/2021 Calcification of abdominal aorta ([facility]) 10/08/202309/[address] abd Diverticulosis 10/08/2023 ESRD on hemodialysis ([facility] ([facility]) 10/26/2019 Hemodialysis patient ([facility]) ([facility]) HTN (hypertension) 12/01/2022 Hypertension IgA nephropathy IgA nephropathy determined by biopsy of kidney 10/26/2019 Missed vaccination due to patient refusal 10/08/2023 Has a number of non-scientific based beliefs which interfere with his understanding and acceptance of the medical benefit of vaccination. Nonrheumatic aortic valve stenosis 10/08/2023 Paroxysmal A-fib ([facility]) ([facility]) 08/18/2023 Tobacco abuse 10/08/2023 Images from the original note were not included. [facility] Medical [facility] - Infectious Diseases Attending Progress Note Subjective: [...] from the original note were not included. [facility], Pulmonary Medicine [phone] PULMONARY PROGRESS NOTE. Patient - Jun Snyder, [...] and Studies: CBC: Recent Labs 02/21/25 0053 02/22/250 02/23/25 003 WBC 7.0 9.0 8.6 HGB 8.3* 7.8* 8.6* HCT 25.7* 24.5* 27.9* PLT 316 282 316 BMP: Recent Labs 02/21/25 00502/22/250 02/23/25 003 NA 131* 132* 135* K [...] we will follow along closely with you. lEly Jett MD PGY- 4 Pulmonary and Critical Care Medicine Cosigned by Angeles Blackburn DO at 02/23/2025 3:18 PM EDT Associated attestation - Angeles Blackburn DO - 02/23/2025 3:18 PM EDT I have personally performed a gouk-lb-danp diagnostic evaluation on this patient on date of service 02/23/25. History, labs, imaging studies, and electronic medical record have been reviewed by me. This note documented by the [x]warehouse technician []ARMIN reflects my history, exam, and medical [...] has been managed at facilities, most recently [facility]. Pt's home dose of warfarin is [...] over when discharged from facility. Fatuma Odonnell RP, PharmD [facility] Consult Service is available daily [phone] via [employer] Secure Chat. [1] Past Medical History: Diagnosis Date Acute renal failure (ARF) ([facility]) 10/19/2019 Anemia 12/30/2021 Calcification of abdominal aorta (HCC) 10/08/202309/[address] abd Diverticulosis 10/08/2023 ESRD on hemodialysis ([facility]) (HCC) 10/26/2019 Hemodialysis patient ([facility] ([facility]) HTN (hypertension) 12/01/2022 Hypertension IgA nephropathy IgA [...] bilateral pleural effusions. 5. Cholelithiasis, and diminutive paiute-shoshone kidneys. Seen by pulm service Started on IV abx Started on heparin gtt as well Interval History: pt feels ok Some dizziness at times No more bleeding issues 02/23 Pt awake Reports his PEG is uncomfortable-- wants removed if able No CP Adult diet Regular @IODETAILS@ @[id number]@ Medications: Continuous Meds[1] Scheduled Meds[2] Recent Labs [...] from the original note were not included. [facility]/NPWT Progress Note Jun Snyder AGE: [...] pain with PO pain medication, per staff respiratory therapist, prior to wound VAC dressing change. Wet [...] wrist Abrasion: -cleanse with antibacterial soap/water, leave LATEX THREAD MACHINE OPERATOR daily Sacral Stage 4 pressure injury [...] to follow Recommend to follow up at [facility] Outpatient wound care center after [...] History: Diagnosis Date Acute renal failure (ARF) ([facility]) 10/19/2019 Anemia 12/30/2021 Calcification of abdominal aorta ([facility]) 10/08/202309/[address] abd Diverticulosis 10/08/2023 ESRD on hemodialysis ([facility]) ([facility]) 10/26/2019 Hemodialysis patient ([facility]) ([facility]) HTN (hypertension) 12/01/2022 Hypertension IgA nephropathy IgA nephropathy determined by biopsy of kidney 10/26/2019 Missed vaccination due to patient refusal 10/08/2023 Has a number of non-scientific based beliefs which interfere with his understanding and acceptance of the medical benefit of vaccination. Nonrheumatic aortic valve stenosis 10/08/2023 Paroxysmal A-fib ([facility]) ([facility]) 08/18/2023 Tobacco abuse 10/08/2023 [2] Past Surgical History: Procedure Laterality Date APPENDECTOMY CARDIAC CATHETERIZATION N/A 10/09/2024 Performed by Bob Watson MD at [facility] Cardiac Cath/EP Lab CARDIAC CATHETERIZATION Bilateral 11/01/2024 Performed by Bob Watson MD at [facility] Cardiac Cath/EP Lab CARDIAC CATHETERIZATION N/A 11/01/2024 Performed by Bob Watson MD at [facility] Cardiac Cath/EP Lab COLONOSCOPY N/A 01/24/2025 Performed by Chadd Davis MD at [facility] ENDOSCOPY FISTULAGRAM (HISTORICAL) Left 09/15/2021 LEFT UPPER ARM HX AV FISTULA CREATION IR EMBOLIZATION 10/14/2024 IR EMBOLIZATION 10/14/2024 [facility] SPECIAL PROCEDURES IR FISTULAGRAM 08/07/2022 [...] needed (PRN constipation). [DISCONTINUED] epoetin rowan-epbx (Retacrit) 39624 UNIT/ML injection Inject 0.79 mL (7,900 Units) [...] reach out with any questions or concerns Bere Molina APRN ASSOCIATE A-G WIRE TWISTER [facility] [phone] Pt seen and examined independently by me. I reviewed with DENIA-ASSOCIATE the medical history and the findings on physical examination. I discussed the patient s diagnosis and concur with the treatment plan as documented in his note. Please call [phone] or message me through [employer] with any questions or concerns. Pharmacy Managed [...] [] CrCl ml/min (Cockcroft-Gault, if BLOSSOM, no GLAZIER HELPER) Infectious Diagnosis: Pneumonia (target level = 15-20 [...] 4:36 PM Daryn Babcock PharmD (available on [employer]) Images from the original note were not included. [facility], Pulmonary Medicine [phone] PULMONARY PROGRESS NOTE. Patient - Jun Snyder, [...] [phone] BMP: Recent Labs 02/20/25 18202/21/253 02/22/25 010 NA 133* 131* 132* K 3.1* [...] will follow along closely with you. Elly Jtet MD PGY- 4 Pulmonary and Critical Care Medicine Cosigned by Angeles Blackburn DO at 02/22/2025 3:23 PM EDT Associated attestation - Angeles Blackburn DO - 02/22/2025 3:23 PM EDT I have personally performed a kyqe-bj-owpz diagnostic evaluation on this patient on date of service 02/22/2025. History, labs, imaging studies, and electronic medical record have been reviewed by me. This note documented by the [x]warehouse technician []ARMIN reflects my history, exam, and medical [...] bilateral pleural effusions. 5. Cholelithiasis, and diminutive paiute-shoshone kidneys. Seen by pulm service Started on IV abx Started on heparin gtt as well Interval History: pt feels ok Some dizziness at times No more bleeding issues Adult diet Regular @IODETAILS@ @[email or web address]@ Medications: Continuous Meds[1] Scheduled Meds[2] Recent Labs [...] original note were not included. OCCUPATIONAL THERAPY [facility] Name/MRN: Jair Snyder ([id number]) Date: 02/22/2025 PT refusing to participate in [...] any questions or concerns Bree Molina APRN ASSOCIATE A-G WIRE TWISTER [facility] [phone] Pt seen and examined independently by me. I reviewed with ELECTRICAL APPLIANCE REPAIRER-ASSOCIATE the medical history and the findings on physical examination. I discussed the patient s diagnosis and concur with the treatment plan as documented in his note. Please call [phone] or message me through [employer] with any questions or concerns. Images from the original note were not included. PHYSICAL THERAPY [facility] Name/MRN: Jair Snyder ([id number]) Date: 02/22/2025 Pt declined to work with therapy at this time, stating he wants to wait until after the wound vac is put on. Will reattempt at a later date. Sangeeta Lambert, PT Images from the original note were not included. PHYSICAL THERAPY [facility] Name/MRN: Jair Snyder ([id number]) Date: 02/21/2025 Pt declined to work with [...] Time 17 min documented in this encounter [facility] 03-05-2025 Miscellaneous Notes Formattin g of this note might be different from the original. Auth is now pending with [facility] for [facility]. Auth ID: [id number] . The insurance needs PT and OT notes- as PT note yesterday incomplete , they are both requested . Confirmed pickup time of 4:00pm on 03/05/25 by Demo Lesson at phone number [phone]. Location of facility drop off is [facility]. Facility notified via Careport, [facility] notified on secure chat. Discharge med list transmitted to [facility] via Careport per TCC request. Tcc requested transport to be set up at 4 PM to permit auth to be ongoing- facility can accept- just requested it be started today - brand specialist notified, and discharge orders faxed, will confirm in secure chat the time and notify the tx team , orders in [facility] , ro[facility]endo done, [facility] . TCC requested OT notes this am - for ongoing auth - PT INR is now good 1.8 , notified facility want to send today , auth was only good thru 03/02 notified OBSTETRICIAN to confirm about auth requirements again today .. Transport in will call, wound VAC to go with patient, discharge orders in [facility] , LIVES at facility LT - the facility wants to skill- [facility] is working with them to have him discharge later today - transport in will call . Trim Crew Supervisor notified to send orders and med rec to [facility] Problem: Knowledge Deficit Goal: Patient/family/caregiver demonstrates [...] Note DC [facility], no auth needed to return however [...] Progress Note 03/03/25 1025 Rapid Rounds Attendance Administrative Operations Coordinator Planned Discharge Disposition Shelter ([facility], is LTC no AUTH needed) Today we still await Other (INR >or = 1.8 per [facility]) Clinical stability Attending completion of discharge workflow Additional Comments: We have a skilled AUTH that expires midnight tonight, however facility will still accept without AUTH per previous CM notes This Administrative Operations Coordinator was tasked to follow this patient through the weekend. Chart and Careport were reviewed. INR this am is 1.6, subtherapeutic. Facility updated. Transportation is in will call. shipping manager will continue to follow for transitional [...] med list and updated notes transmitted to [facility] via Careport per TCC request. Per [...] 1.8 - and need labs post at [facility] to follow . Trim Crew Supervisor tasked to send wound vac and clinicals- requested PT/OT notes for ongoing auth . Rosendo done- transport in will call to return to [facility] where he lives facility did want [...] Roundtrip in will call per TCC. Tasked OBSTETRICIAN to set up transport in will call, [...] Need updated therapy to start auth for [facility]. [facility]. Continues on IV antibiotics. On a heparin gtt. SMS following to change to Coumadin. INR 13 today. Plan is to return to [facility]. . Length of Stay (Days): 7 GMLOS: [...] therapy notes. Want to skill him at [facility]. Started on IV antibiotics for aspiration pneumonia. Continues on a heparin gtt. . Updated notes sent to [facility] via Careport per TCC [...] pressure injuries/wounds this shift so RN [facility] would prefer to SKILL patient- LTC. + [...] Interventions Goal: Promote nutritional intake Outcome: Progressing [facility] would prefer to SKILL patient- LTC. + bedhold will return - has woundVAC and ivab on hep gtt, not ready for discharge , [facility] tasked to send clinicals facility is updated . Updated notes sent to [facility] via Careport per [facility] request. Await review and response regarding [...] intake Outcome: Not Progressing Has dialysis at [facility].. Pt came to ER from dialysis due to hemoptysis. Had a trach removed 01/19. He is a bed hold at [facility]. They would like to skill him if able. Unable to tell me where he went to dialysis this am, asking facility. Referral placed to [facility] per [facility] request. Await review and response regarding [...] of blood components. documented in this encounter [facility] 03-05-2025 Note [facility] 03-05-2025 Hospital course Narrative Images from the original note were not included. Hospitalist Discharge Summary - [facility] - Acute Care [facility] ([facility] Jun Snyder : 1965 Admit date: 02/20/2025 Discharge date: 03/05/2025 Admitting Physician: Bettye Pierre MD Primary Care Physician: Leilani Troncoso Recommended Follow-up: [facility] Wound Ostomy [address] [facility] [address] [facility] [address] [place] [address] [facility] [address] Call Call and schedule appointment [...] "CHOL" No results found for: "PHART", "PO2ART", "WPE7HYH" Recent Labs 03/04/25 0156 03/04/25 0946 03/05/25 0343 INR 1.5* 1.6* 1.8* No results for input(s): "DDIMER" in the last 72 hours. No results found for: "HGBA1C" No results found for: "TSH" Urine Culture: No results found for this or any previous visit. Imaging: CTA chest angiogram w and/or wo IV contrast Result Date: 02/20/2025 Patient Name: JUN SNYDER : 1965 [id number] Exam Date/Time: 02/20/2025 19:01 Procedure: CT CHEST [...] bilateral pleural effusions. 5. Cholelithiasis, and diminutive paiute-shoshone kidneys. Report Dictated on Electronically Signed By: [...] medications were sent to [facility] [address] [place] [id number] metoprolol tartrate 25 MG tablet pantoprazole 40 MG EC tablet QUEtiapine 25 MG tablet sevelamer carbonate 800 MG tablet You can get these medications from any pharmacy Bring a paper prescription for each of these medications oxyCODONE 5 MG immediate release tablet Signed: Anthony Hurtado DO 03/05/2025, 9:30 AM documented in this encounter [facility] 03-03-2025 Nurse Note Patient Name: Jun Snyder Patient : 1965 Acct: [id number] Date of Admission: 02/20/2025 Room/Bed: [facility] A Code Status: [...] - Before each treatment: Dialysis Machine No.: [id number] RO Machine Number: [id number] Dialyzer Lot No.: [id number] Tubing Lot Number: [id number] [employer] Secure: Yes Venous Parameters Set: Yes Arterial Parameters Set: Yes NS Bag: Yes Saline Line Double Clamped: Yes Dialyzer: Nipro Prime Volume (mL): 200 mL RO Machine Number: [id number] RO Machine Log Sheet Completed: Yes Machine Alarm Self Test: Completed, Passed (03/03/25 0740) Air Foam Detector: Tested, Proper Function, pH Reading Extracorporeal Circuit Tested for Integrity: Yes Machine Conductivity: 13.7 Manual Conductivity: 13.6 Manual Ph: 7 Bleach Test (Neg): Yes Bath Temperature: 36 C (96.8 F) Conductivity Meter Serial #: [id number] Machine Functioning Alarm Free? Yes Dialysis Bath: K+ (Potassium): 2 Ca+ (Calcium): 2.5 Na+ (Sodium): 137 HCO3 (Bicarb): 35 Bicarbonate Concentrate Lot No.: [id number] Acid Concentrate Lot No.: [id number] Chlorine Testing - Before each treatment and [...] pt sleeping, removed 214303/03/25 1230 350 mL/min 42782 ml/hr -70 mmHg 170 mmHg 80 600 [...] (97.4 F) Temporal 83 16 93 % 03/02/252117 (!) 162/97 36.2 C (97.1 F) Temporal [...] Active Problem List Diagnosis Anemia Paroxysmal A-fib ([facility]) (HCC) HTN (hypertension) ESRD on hemodialysis ([facility]) ([facility]) IgA nephropathy determined by biopsy of kidney [...] (CMS/HCC) (HCC) Acute respiratory failure with hypoxia ([facility]) [J96.01] Tracheostomy care ([facility]) [Z43.0] 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 Please see eMAR for administration Patient Name: Jun Snyder Patient : 1965 Acct: [id number] Date of Admission: 02/20/2025 Room[facility]: [facility]334 A Code Status: Full Code Allergies: Allergies[1] [...] - Before each treatment: Dialysis Machine No.: [id number] RO Machine Number: [id number] Dialyzer Lot No.: [id number] Tubing Lot Number: [id number] All Connections Secure: Yes Venous Parameters Set: Yes Arterial Parameters Set: Yes NS Bag: Yes Saline Line Double Clamped: Yes Dialyzer: Nipro Prime Volume (mL): 200 mL RO Machine Number: [id number] RO Machine Log Sheet Completed: Yes Machine Alarm Self Test: Completed, Passed (03/01/25 0749) Air Foam Detector: Tested, Proper Function, pH Reading Extracorporeal Circuit Tested for Integrity: Yes Machine Conductivity: 13.6 Manual Conductivity: 13.5 Manual Ph: 7.2 Bleach Test (Neg): Yes Bath Temperature: 36 C (96.8 F) Conductivity Meter Serial #: [id number] Machine Functioning Alarm Free? Yes Dialysis Bath: K+ (Potassium): 3 Ca+ (Calcium): 2.5 Na+ (Sodium): 137 HCO3 (Bicarb): 35 Bicarbonate Concentrate Lot No.: [id number] Acid Concentrate Lot No.: [id number] Chlorine Testing - Before each treatment and every 4 hours: Time On: 0832 Time Off: 113 Treatment Goal: 2L Weight Height: 177.8 cm (5' 10") (02/23/25 1413) Weight: 60.8 kg (134 lb) (02/23/25 1413) BMI (Calculated): 19.23 (02/23/25 141) 1st check: [...] mmHg 70 600 Yes pt sleeping, removed 18503/01/25 1100 350 mL/min 840 ml/hr -120 mmHg [...] Active Problem List Diagnosis Anemia Paroxysmal A-fib ([facility]) ([facility]) HTN (hypertension) ESRD on hemodialysis ([facility]) ([facility]) IgA nephropathy determined by biopsy of kidney Diverticulosis Nonrheumatic aortic valve stenosis Calcification of abdominal aorta ([facility]) Missed vaccination due to patient refusal Tobacco abuse Alcohol use disorder in remission Atrial flutter, unspecified type ([facility]) RSV (acute bronchiolitis due to respiratory syncytial virus) Aortic stenosis Upper GI bleed S/P AVR Acute hypoxic respiratory failure ([facility]) Acute encephalopathy Pneumoperitoneum Gastric ulceration Severe malnutrition ([facility]) ([facility]) Pleural effusion Peritonitis due to fungus ([facility]) History of abdominal surgery Leg DVT (deep venous thromboembolism), acute, left ([facility]) Ischemic ulcer of toe of left foot, limited to breakdown of skin ([facility]) Tracheostomy dependence ([facility]) Leukocytosis Decubitus ulcer of sacral region, unstageable (HCC) Pneumonia of both lungs due to methicillin susceptible Staphylococcus aureus (MSSA) (HCC) Sacral osteomyelitis (CMS/HCC) (HCC) Acute respiratory failure with hypoxia (HCC) [J96.01] Tracheostomy care ([facility]) [Z43.0] 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 Nurse trials manager notified maintenance of the problem, and [...] nurses aides cannot leave the floor to picker box operator his packages, and pt was agreeable to this as well. Patient Name: Jun Snyder Patient : 1965 Acct: [id number] Date of Admission: 02/20/2025 Room/Bed: W3334/W3-334 A Code Status: Full Code Allergies: Allergies[1] [...] (0) 3 Regular None (Room air) Clear [address] Warm;Dry;No swelling Soft Active 02/27/25 1202 Alert (0) 3 Regular None (Room air) Clear [address] Warm Soft -- 02/27/25 1240 -- -- -- -- Diminished Ecchymosis -- -- -- Labs Lab Results Component Value Date/Time WBC 7.9 02/27/2025 0010 HGB 8.6 (L) 02/27/2025 0010 HGB 9.4 11/11/2024 0230 HCT 28.8 (L) 02/27/2025 0010 PLT 302 02/27/2025 0010 NA 135 (L) 02/23/2025 0032 K 4.1 02/23/202531 CL 99 02/23/20252 CO2 25 02/23/20252 BUN 21 02/23/202531 CREATININE 2.78 (H) 02/23/202531 CREATININE 9.99 (H) 10/27/2019 0545 CALCIUM 9.2 02/23/202531 PHOS 2.6 02/23/202531 IV Drips and Rate/Dose Continuous Meds[3] Safety - Before each treatment: Dialysis Machine No.: [id number] RO Machine Number: [id number] Dialyzer Lot No.: [id number] Tubing Lot Number: [id number] All Connections Secure: Yes Venous Parameters Set: Yes Arterial Parameters Set: Yes NS Bag: Yes Saline Line Double Clamped: Yes Dialyzer: Nipro Prime Volume (mL): 200 mL RO Machine Number: [id number] RO Machine Log Sheet Completed: Yes Machine Alarm Self Test: Completed, Passed (02/27/25744) Air Foam Detector: Tested, Proper Function, pH Reading Extracorporeal Circuit Tested for Integrity: Yes Machine Conductivity: 13.7 Manual Conductivity: 143.6 Manual Ph: 7 Bleach Test (Neg): Yes Bath Temperature: 36 C (96.8 F) Conductivity Meter Serial #: [id number] Machine Functioning Alarm Free? Yes Dialysis Bath: K+ (Potassium): 3 Ca+ (Calcium): 2.5 Na+ (Sodium): 137 HCO3 (Bicarb): 35 Bicarbonate Concentrate Lot No.: [id number] Acid Concentrate Lot No.: [id number] Chlorine Testing - Before each treatment and [...] Active Problem List Diagnosis Anemia Paroxysmal A-fib ([facility]) ([facility]) HTN (hypertension) ESRD on hemodialysis ([facility]) ([facility]) IgA nephropathy determined by biopsy of kidney Diverticulosis Nonrheumatic aortic valve stenosis Calcification of abdominal aorta ([facility]) Missed vaccination due to patient refusal Tobacco abuse Alcohol use disorder in remission Atrial flutter, unspecified type ([facility]) RSV (acute bronchiolitis due to respiratory syncytial virus) Aortic stenosis Upper GI bleed S/P AVR Acute hypoxic respiratory failure ([facility]) Acute encephalopathy Pneumoperitoneum Gastric ulceration Severe malnutrition ([facility]) ([facility]) Pleural effusion Peritonitis due to fungus ([facility]) History of abdominal surgery Leg DVT (deep venous thromboembolism), acute, left ([facility]) Ischemic ulcer of toe of left foot, limited to breakdown of skin ([facility]) Tracheostomy dependence (HCC) Leukocytosis Decubitus ulcer of sacral region, unstageable (HCC) Pneumonia of both lungs due to methicillin susceptible Staphylococcus aureus (MSSA) (HCC) Sacral osteomyelitis (CMS/HCC) (HCC) Acute respiratory failure with hypoxia (HCC) [J96.01] Tracheostomy care (HCC) [Z43.0] Pulmonary embolism (HCC) 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 2322- Notified Dr. Hathaway of patient complaint of SOB and worsening chest pain that he described as dull and tight. Vitals WDL. STAT EKG ordered, patient given Nitrostat, and troponin sent down. 2330- Notified GLAZIER HELPER to assess the patient. Patient Name: Jun Snyder Patient : 1965 Acct: [id number] Date of Admission: 02/20/2025 Room[facility]Bed: [facility] A Code Status: [...] - Before each treatment: Dialysis Machine No.: [id number] Machine Number: [id number] Dialyzer Lot No.: [id number] Tubing Lot Number: [id number] All Connections Secure: Yes Venous Parameters Set: Yes Arterial Parameters Set: Yes NS Bag: Yes Saline Line Double Clamped: Yes Dialyzer: Nipro Prime Volume (mL): 200 mL RO Machine Number: [id number] RO Machine Log Sheet Completed: Yes Machine Alarm Self Test: Completed, Passed (02/24/25 0810) Air Foam Detector: Tested, Proper Function, pH Reading Extracorporeal Circuit Tested for Integrity: Yes Machine Conductivity: 13.7 Manual Conductivity: 13.7 Manual Ph: 7 Bleach Test (Neg): Yes Bath Temperature: 36 C (96.8 F) Conductivity Meter Serial #: [id number] Machine Functioning Alarm Free? Yes Dialysis Bath: K+ (Potassium): 3 Ca+ (Calcium): 2.5 Na+ (Sodium): 137 HCO3 (Bicarb): 35 Bicarbonate Concentrate Lot No.: [id number] Acid Concentrate Lot No.: [id number] Chlorine Testing - Before each treatment and every 4 hours: Time On: 3 Time Off: 1413 Treatment Goal: 2L Weight Height: 177.8 cm (5' 10") (02/23/251412) Weight: 60.8 kg (134 lb) (02/23/25 141) [...] feed based on dietary recommendations) Provider Name: [facility] Provider Role: Hospitalist Method of Communication: Secure [...] Active Problem List Diagnosis Anemia Paroxysmal A-fib ([facility]) ([facility]) HTN (hypertension) ESRD on hemodialysis ([facility]) ([facility]) IgA nephropathy determined by biopsy of kidney Diverticulosis Nonrheumatic aortic valve stenosis Calcification of abdominal aorta (HCC) Missed vaccination due to patient refusal Tobacco abuse Alcohol use disorder in remission Atrial flutter, unspecified type ([facility]) RSV (acute bronchiolitis due to respiratory syncytial [...] failure with hypoxia (HCC) [J96.01] Tracheostomy care ([facility]) [Z43.0] 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 Dispatch called [employer] and said a package came to the mail distribution scheme examiner but they will not have access to retreive until Wednesday morning. It is locked over the weekend. Wound Care consulted for Pressure Injury Prevention. Pt's Kee score= 13 on 02/23 Pt's pressure points assessed. Pt's Right Heel, Elbows, Occiput and ears all intact. Pt currently followed by Wound WIRE TWISTER group for wounds to left toes, left plantar heel, right wrist, and sacrum with wound vac. For left toes, left heel, right wrist, and sacral wound assessments and treatment plan, please see Wound/Ostomy WIRE TWISTER progress notes. Jeremiah sheet noted at bedside and not on [...] Name: Jun Snyder Patient : 1965 Acct: [id number] Date of Admission: 02/20/2025 Room/Bed: W3-334/W3-334 A [...] 9.0 02/22/2025 0100 HGB 7.8 (L) 02/22/2025 010 HGB 9.4 [...] - Before each treatment: Dialysis Machine No.: [id number] RO Machine Number: [id number] Dialyzer Lot No.: [id number] Tubing Lot Number: [id number] All Connections Secure: Yes Venous Parameters Set: Yes Arterial Parameters Set: Yes NS Bag: Yes Saline Line Double Clamped: Yes Dialyzer: Nipro Prime Volume (mL): 200 mL RO Machine Number: [id number] RO Machine Log Sheet Completed: Yes Machine Alarm Self Test: Completed, Passed (test passed at 0938) (02/22/25 0940) Air Foam Detector: Tested, Proper Function, pH Reading Extracorporeal Circuit Tested for Integrity: Yes Machine Conductivity: 13.7 Manual Conductivity: 13.8 Manual Ph: 7 Bleach Test (Neg): Yes (water check negative at 1215) Bath Temperature: 36 C (96.8 F) Conductivity Meter Serial #: [id number] Machine Functioning Alarm Free? Yes Dialysis Bath: K+ (Potassium): 3 Ca+ (Calcium): 2 Na+ (Sodium): 137 HCO3 (Bicarb): 35 Bicarbonate Concentrate Lot No.: [id number] Acid Concentrate Lot No.: [id number] Chlorine Testing - Before each treatment and [...] 120 mmHg 90 600 Yes Brigitte Molina WIRE TWISTER at bedside, no voiced complaints. fluid removal [...] feed based on dietary recommendations) Provider Name: [facility] [place] Provider Role: Hospitalist Method of Communication: Secure [...] (CMS/HCC) (HCC) HTN (hypertension) ESRD on hemodialysis ([facility]) (HCC) IgA nephropathy determined by biopsy of [...] failure with hypoxia (HCC) [J96.01] Tracheostomy care ([facility]) [Z43.0] Pulmonary embolism (HCC) 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 Complication of [...] request. This RN spoke with RN at [facility] to verify medications that pt is taking. Pt arrived to hospital with wound vac on coccyx. Pt declined pictures to be taken of wound for charting. Pt states [facility]. Pt also mentioned that his Left [...] consuelo marten transport documented in this encounter [facility] 02-26-2025 Telephone encount er Note Called spoke with a nurse at the home he lives at. She declined to schedule any appointments at this time because they don't know when patient will be discharged. She said to call back once he is out the hospital. There is no other number to contact patient directly [facility] 02-26-2025 Miscellaneous Notes Formattin [...] this? Thank you documented in this encounter [facility] 02-23-2025 Telephone encount er Note Called LM to call back and schedule CT and hospital follow up with any ARMIN [facility] 02-23-2025 Miscellaneous Notes Formattin g of this note might be different from the original. Called LM to call back and schedule CT and hospital follow up with any ARMIN Antonio, can we please schedule a 6-week CT scan for this patient and a follow-up appointment after this? Thank you documented in this encounter [facility] 02-23-2025 Consult note Formatting [...] was bright red and 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 Reason for Consult: PEG [...] constipation). 02/21/25 Historical Provider, epoetin rowan-epbx (Retacrit) 50051 UNIT/ML injection Inject 0.79 mL (7,900 Units) [...] bilateral pleural effusions. 5. Cholelithiasis, and diminutive paiute[place]shoshone kidneys. Report Dictated on Electronically Signed By: [...] Jaskaran Bey MD General Surgery PGY-2 Pager [phone] [1] Past Medical History: Diagnosis Date Acute renal failure (ARF) ([facility]) 10/19/2019 Anemia 12/30/2021 Calcification of abdominal aorta ([facility]) 10/08/202309/[address] abd Diverticulosis 10/08/2023 ESRD on hemodialysis ([facility]) ([facility]) 10/26/2019 Hemodialysis patient ([facility]) ([facility]) HTN (hypertension) 12/01/2022 Hypertension IgA nephropathy IgA nephropathy determined by biopsy of kidney 10/26/2019 Missed vaccination due to patient refusal 10/08/2023 Has a number of non-scientific based beliefs which interfere with his understanding and acceptance of the medical benefit of vaccination. Nonrheumatic aortic valve stenosis 10/08/2023 Paroxysmal A-fib ([facility]) ([facility]) 08/18/2023 Tobacco abuse 10/08/2023 [2] Past Surgical History: Procedure Laterality Date APPENDECTOMY CARDIAC CATHETERIZATION N/A 10/09/2024 Performed by Bob Watson MD at [facility] Cardiac Cath/EP Lab CARDIAC CATHETERIZATION Bilateral 11/01/2024 Performed by Bob Watson MD at [facility] Cardiac Cath/EP Lab CARDIAC CATHETERIZATION N/A 11/01/2024 Performed by Bob Watson MD at [facility] Cardiac Cath/EP Lab COLONOSCOPY N/A 01/24/2025 Performed by Chadd Davis MD at [facility] ENDOSCOPY FISTULAGRAM (HISTORICAL) Left 09/15/2021 LEFT UPPER ARM HX AV FISTULA CREATION IR EMBOLIZATION 10/14/2024 IR EMBOLIZATION 10/14/2024 [facility] SPECIAL PROCEDURES IR FISTULAGRAM 08/07/2022 [...] 0 min Stress: Stress Concern Present (02/21/2025) [employer] - Occupational Stress Questionnaire Feeling of Stress : To some extent Social Connections: Unknown (02/21/2025) Social Connection and Isolation Panel [NHANES] Frequency of Communication with Friends and Family: More than three times a week Frequency of Social Gatherings with Friends and Family: Patient declined Attends [employer] Services: Patient declined Active Member of Clubs [...] minutes (including chart/data review/analysis, care coordination, and [id number] encounter), and was spent discussing/counseling the patient/family [...] & Acute Care Surgery Department of Surgery [facility] Pager: [phone] ~~~~~~~~~~~~~~~~~~~~~~~~~~~~~~~~ ~~~~~~~~~~~~~~~~~~~~~~~~~~~~~ This note may have been dictated using [employer] Practice Edition 2.6 and/or [employer] Voice Recognition Feature. The document was proofread; however, unrecognized voice recognition clinical exercise specialist errors may be present. [1] Patient Active Problem List Diagnosis Anemia Paroxysmal A-fib ([facility]/HCC) ([facility]) HTN (hypertension) ESRD on hemodialysis ([facility]) ([facility]) IgA nephropathy determined by biopsy of kidney [...] left foot, limited to breakdown of skin ([facility]) Tracheostomy dependence (HCC) Leukocytosis Decubitus ulcer of sacral region, unstageable (HCC) Pneumonia of both lungs due to methicillin susceptible Staphylococcus aureus (MSSA) (HCC) Sacral osteomyelitis (CMS/HCC) (HCC) Acute respiratory failure with hypoxia ([facility]) [J96.01] Tracheostomy care ([facility]) [Z43.0] 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 [facility] - Infectious Diseases Attending Consult [...] bilateral pleural effusions. 5. Cholelithiasis, and diminutive [place]-shoshone kidneys. Past Medical History: Medical History[1] Past [...] 0 min Stress: Stress Concern Present (02/21/2025) [employer] - Occupational Stress Questionnaire Feeling of Stress : To some extent Social Connections: Unknown (02/21/2025) Social Connection and Isolation Panel [NHANES] Frequency of Communication with Friends and Family: More than three times a week Frequency of Social Gatherings with Friends and Family: Patient declined Attends Lutheran Services: Patient declined Active Member of Clubs [...] Temporal 84 20 95 % -- -- 05/28/25 2221 152/84 36.4 C (97.6 F) Temporal [...] History: Diagnosis Date Acute renal failure (ARF) ([facility]) 10/19/2019 Anemia 12/30/2021 Calcification of abdominal aorta ([facility]) 10/08/202309/[address] abd Diverticulosis 10/08/2023 ESRD on hemodialysis ([facility]) ([facility]) 10/26/2019 Hemodialysis patient ([facility]) ([facility]) HTN (hypertension) 12/01/2022 Hypertension IgA nephropathy IgA nephropathy determined by biopsy of kidney 10/26/2019 Missed vaccination due to patient refusal 10/08/2023 Has a number of non-scientific based beliefs which interfere with his understanding and acceptance of the medical benefit of vaccination. Nonrheumatic aortic valve stenosis 10/08/2023 Paroxysmal A-fib ([facility]) ([facility]) 08/18/2023 Tobacco abuse 10/08/2023 [2] Past Surgical History: Procedure Laterality Date APPENDECTOMY CARDIAC CATHETERIZATION N/A 10/09/2024 Performed by Bob Watson MD at [facility] Cardiac Cath/EP Lab CARDIAC CATHETERIZATION Bilateral 11/01/2024 Performed by Bob Watson MD at [facility] Cardiac Cath/EP Lab CARDIAC CATHETERIZATION N/A 11/01/2024 Performed by Bob Watson MD at [facility] Cardiac Cath/EP Lab COLONOSCOPY N/A 01/24/2025 Performed by Chadd Davis MD at [facility] ENDOSCOPY FISTULAGRAM (HISTORICAL) Left 09/15/2021 [...] 2,268 Units 40 Units/kg IntraVENous PRN Ramón Roamno MD heparin injection 4,536 Units 80 Units/kg [...] tablet 40 mg 40 mg Oral qAM Ramón Romano MD 40 mg at 02/22/25 [...] 9:31 AM Jolie Uribe RPh (available on [employer]) Associated Order(s): INPATIENT CONSULT TO WOUND CARE PROVIDERS Images from the original note were not included. [facility] Progress Note Jun Snyder AGE: [...] pain with PO pain medication, per staff respiratory therapist, prior to wound VAC dressing change. Wet [...] apply Betadine and allow to dry, leave LATEX THREAD MACHINE OPERATOR daily and PRN Right wrist Abrasion: -cleanse with antibacterial soap/water, leave LATEX THREAD MACHINE OPERATOR daily Sacral Stage 4 pressure injury [...] to follow Recommend to follow up at [facility] Out[facility] wound care center after [...] History: Diagnosis Date Acute renal failure (ARF) ([facility]) 10/19/2019 Anemia 12/30/2021 Calcification of abdominal aorta ([facility]) 10/08/202309/[address] abd Diverticulosis 10/08/2023 ESRD on hemodialysis ([facility]) ([facility]) 10/26/2019 Hemodialysis patient ([facility]) ([facility]) HTN (hypertension) 12/01/2022 Hypertension IgA nephropathy IgA nephropathy determined by biopsy of kidney 10/26/2019 Missed vaccination due to patient refusal 10/08/2023 Has a number of non-scientific based beliefs which interfere with his understanding and acceptance of the medical benefit of vaccination. Nonrheumatic aortic valve stenosis 10/08/2023 Paroxysmal A-fib ([facility]) ([facility]) 08/18/2023 Tobacco abuse 10/08/2023 [2] Past Surgical History: Procedure Laterality Date APPENDECTOMY CARDIAC CATHETERIZATION N/A 10/09/2024 Performed by Bob Watson MD at [facility] Cardiac Cath/EP Lab CARDIAC CATHETERIZATION Bilateral 11/01/2024 Performed by Bob Watson MD at [facility] Cardiac Cath/EP Lab CARDIAC CATHETERIZATION N/A 11/01/2024 Performed by Bob Watson MD at [facility] Cardiac Cath/EP Lab COLONOSCOPY N/A 01/24/2025 Performed by Chadd Davis MD at [facility] ENDOSCOPY FISTULAGRAM (HISTORICAL) Left 09/15/2021 [...] needed (PRN constipation). [DISCONTINUED] epoetin rowan-epbx (Retacrit) 04781 UNIT/ML injection Inject 0.79 mL (7,900 Units) [...] deltoids) Fluid Accumulation: Unable to assess Supervisor Painting Department Strength: Not Performed Nutrition Assessment: 59yo male admitted from [facility] 02/20 due to coughing up blood [...] from NPO to Regular this morning. At [facility] diet was Potassium Restricted/Mech Soft/Thin + [...] Total Energy Requirements (kcals/day): 30-35 kcal/kg = 5013-9218 kcal Weight Used for Protein Requirements: Current [...] lb) (08/28/24) % Weight Change (Calculated): -34.6 [place] Body Weight (lbs) (Calculated): 166 lbs [place] Body Weight (Kg) (Calculated): 75 kg % [place] Body Weight (Calculated): 81.1 % BMI (kg/m2) [...] soon to determine Jade Rodriguez RD Contact: Guides[place] or *[phone] Associated Order(s): INPATIENT CONSULT TO WOUND CARE PROVIDERS Images from the original note were not included. [facility] CONSULT Note Jun Snyder AGE: [...] apply Betadine and allow to dry, leave LATEX THREAD MACHINE OPERATOR daily and PRN Right wrist Abrasion: -cleanse with antibacterial soap/water, leave LATEX THREAD MACHINE OPERATOR daily Sacral Stage 4 pressure injury [...] to follow Recommend to follow up at [facility] Outpatient wound care center after [...] History: Diagnosis Date Acute renal failure (ARF) ([facility]) 10/19/2019 Anemia 12/30/2021 Calcification of abdominal aorta ([facility]) 10/08/202309/[address] abd Diverticulosis 10/08/2023 ESRD on hemodialysis ([facility]) ([facility]) 10/26/2019 Hemodialysis patient ([facility]) ([facility]) HTN (hypertension) 12/01/2022 Hypertension IgA nephropathy IgA [...] 10/09/2024 Performed by Bob Watson MD at [facility] Cardiac Cath/EP Lab CARDIAC CATHETERIZATION Bilateral 11/01/2024 Performed by Bob Watson MD at [facility] Cardiac Cath/EP Lab CARDIAC CATHETERIZATION N/A 11/01/2024 Performed by Bob Watson MD at [facility] Cardiac Cath/EP Lab COLONOSCOPY N/A 01/24/2025 Performed by Chadd Davis MD at [facility] ENDOSCOPY FISTULAGRAM (HISTORICAL) Left 09/15/2021 LEFT UPPER ARM HX AV FISTULA CREATION IR EMBOLIZATION 10/14/2024 IR EMBOLIZATION 10/14/2024 [facility] SPECIAL PROCEDURES IR FISTULAGRAM 08/07/2022 [...] needed (PRN constipation). [DISCONTINUED] epoetin rowan-epbx (Retacrit) 18202 UNIT/ML injection Inject 0.79 mL (7,900 Units) under the skin 1 (one) time per week. (Patient not taking: Reported on 02/21/2025) [DISCONTINUED] pantoprazole (ProtoNix) 40 MG injection Infuse 40 mg into a venous catheter 2 times daily. Cosigned by Ahsan Gill DO at 02/26/2025 4:59 PM EDT Associated Order(s): IP CONSULT TO PULMONOLOGY Images from the original note were not included. [facility], Pulmonary Medicine [phone] PULMONARY CONSULTATION NOTE. Patient - Jun Snyder, [...] Dose Status acetaminophen (Tylenol) 325 MG tablet [id number] No Take 650 mg by mouth every 6 hours as needed for mild pain (1-3) or fever. Patient not taking: Reported on 02/21/2025 Historical ProviderMD Unknown Active Ampicillin-Sulbactam Sodium (UNASYN IV) [id number] Infuse 3 g into a venous catheter Every 24 hours. Historical ProviderMD 02/14/25 2351 B complex-vitamin C-folic acid (Nephro-Nato Rx) 1 MG tablet [id number] Take 1 tablet by mouth daily. Historical ProviderMD Active bisacodyl (Dulcolax) 5 MG EC tablet [id number] Take 5 mg by mouth Daily as needed for constipation. Do not crush, chew, or split. Historical ProviderMD Active bisacodyl (Dulcolax) 5 mg split suppository [id number] Insert 10 mg into the rectum Daily as needed (PRN constipation). Historical Provider, Active epoetin rowan-epbx (Retacrit) 25818 UNIT/ML injection [id number] No Inject 0.79 mL (7,900 Units) under the skin 1 (one) time per week. Patient not taking: Reported on 02/21/2025 DENIA Girard CNP Unknown Active ipratropium-albuterol (Duo-Neb) 0.5-2.5 mg/3 mL nebulizer solution [id number] Yes Take 3 mL by nebulization every 8 hours. DENIA Girard CNP Past Week Active Lidocaine 4 % patch [id number] Apply 1 patch topically daily. DENIA Girard CNP Active magnesium hydroxide (Milk of Magnesia) 800 MG/5ML suspension [id number] Take 30 mL by mouth Daily as needed for constipation (if no bm in 3 days). Historical Provider, Active melatonin 5 MG tablet [id number] 1 tablet (5 mg) by Per G Tube route Nightly as needed (insomnia). DENIA Girard CNP Active metoprolol tartrate (Lopressor) 25 MG tablet [id number] 1 tablet (25 mg) by Per G Tube route 2 times daily. DENIA Girard CNP Active midodrine (Proamatine) 5 MG tablet [id number] 3 tablets (15 mg) by Per G Tube route every 6 hours. DENIA Girard CNP 02/14/25 235 naloxone in sodium chloride (PF) injection injection [id number] Inject 0.04 mg into the shoulder, thigh, or buttocks as needed for opioid reversal or respiratory depression. Historical Provider, Active oxyCODONE (Roxicodone) 5 MG immediate release tablet [id number] Take 1 tablet (5 mg) by mouth every 6 hours as needed for moderate pain (4-6) for up to 5 days. Barb Dawkins MD 02/14/25 235 pantoprazole (ProtoNix) 40 MG injection [id number] Infuse 40 mg into a venous catheter 2 times daily. DENIA Girard CNP Active QUEtiapine (SEROquel) 25 MG tablet [id number] 1 tablet (25 mg) by Per G Tube route Nightly. Osiris ADENIA Oliver CNP 02/14/25 2359 sevelamer (Renagel) 800 MG tablet [id number] Take 800 mg by mouth 3 times daily (with meals). Swallow tablet whole; do not crush, break, or chew. Give with meals for CKD/dialysis Historical Provider, Active warfarin (Coumadin) 1 MG tablet [id number] Yes Take as directed per After Visit [...] 10/09/2024 Performed by Bob Watson MD at [facility] Cardiac Cath/EP Lab CARDIAC CATHETERIZATION Bilateral 11/01/2024 Performed by Bob Watson MD at [facility] Cardiac Cath/EP Lab CARDIAC CATHETERIZATION N/A 11/01/2024 Performed by Bob Watson MD at [facility] Cardiac Cath/EP Lab COLONOSCOPY N/A 01/24/2025 Performed by Chadd Davis MD at [facility] ENDOSCOPY FISTULAGRAM (HISTORICAL) Left 09/15/2021 LEFT UPPER ARM HX AV FISTULA CREATION IR EMBOLIZATION 10/14/2024 IR EMBOLIZATION 10/14/2024 [facility] SPECIAL PROCEDURES IR FISTULAGRAM 08/07/2022 [...] PM EDT I have personally performed a [id number] diagnostic evaluation on this patient on date of service 02/21/2025. History, labs, imaging studies, and electronic medical record have been reviewed by me. This note documented by the [x]warehouse technician []ARMIN reflects my history, exam, and medical [...] RA Associated Order(s): IP CONSULT TO NEPHROLOGY [facility] [address] [place] [address] Consult Note Patient's Name: Jun [...] bilateral pleural effusions. 5. Cholelithiasis, and diminutive paiute-shoshone kidneys. Assessment and Plan: 59 y.o. male [...] any questions or concerns Bree Molina APRN ASSOCIATE A-G WIRE TWISTER [facility] [phone] Pt seen and examined independently by me. I reviewed with DENIA-ASSOCIATE the medical history and the findings on physical examination. I discussed the patient s diagnosis and concur with the treatment plan as documented in his note. Please call [phone] or message me through [employer] with any questions or concerns. [1] Past Medical History: Diagnosis Date Acute renal failure (ARF) ([facility]) 10/19/2019 Anemia 12/30/2021 Calcification of abdominal aorta ([facility]) 10/08/202309/[address] abd Diverticulosis 10/08/2023 ESRD on hemodialysis ([facility]) ([facility]) 10/26/2019 Hemodialysis patient ([facility]) ([facility]) HTN (hypertension) 12/01/2022 Hypertension IgA nephropathy IgA nephropathy determined by biopsy of kidney 10/26/2019 Missed vaccination due to patient refusal 10/08/2023 Has a number of non-scientific based beliefs which interfere with his understanding and acceptance of the medical benefit of vaccination. Nonrheumatic aortic valve stenosis 10/08/2023 Paroxysmal A-fib ([facility]) ([facility]) 08/18/2023 Tobacco abuse 10/08/2023 [2] Past Surgical History: Procedure Laterality Date APPENDECTOMY CARDIAC CATHETERIZATION N/A 10/09/2024 Performed by Bob Watson MD at [facility] Cardiac Cath/EP Lab CARDIAC CATHETERIZATION Bilateral 11/01/2024 Performed by Bob Watson MD at [facility] Cardiac Cath/EP Lab CARDIAC CATHETERIZATION N/A 11/01/2024 Performed by Bob Watson MD at [facility] Cardiac Cath/EP Lab COLONOSCOPY N/A 01/24/2025 Performed by Chadd Davis MD at [facility] ENDOSCOPY FISTULAGRAM (HISTORICAL) Left 09/15/2021 LEFT UPPER ARM HX AV FISTULA CREATION IR EMBOLIZATION 10/14/2024 IR EMBOLIZATION 10/14/2024 [facility] SPECIAL PROCEDURES IR FISTULAGRAM 08/07/2022 IR FISTULAGRAM 08/07/2022 [facility] IR IMAGING TONSILLECTOMY (HISTORICAL) [3] Family History Problem Relation Name Age of Onset No Known Problems Mother No Known Problems Father documented in this encounter [facility] 02-23-2025 Telephone encount er Note Antonio, can we please schedule a 6-week CT scan for this patient and a follow-up appointment after this? Thank you [facility] 02-22-2025 Hospital Discharg e [...] 10/09/2024 Performed by Bob Watson MD at [facility] Cardiac Cath/EP Lab CARDIAC CATHETERIZATION Bilateral 11/01/2024 Performed by Bob Watson MD at [facility] Cardiac Cath/EP Lab CARDIAC CATHETERIZATION N/A 11/01/2024 Performed by Bob Watson MD at [facility] Cardiac Cath/EP Lab COLONOSCOPY N/A 01/24/2025 Performed by Chadd Davis MD at [facility] ENDOSCOPY FISTULAGRAM (HISTORICAL) Left 09/15/2021 LEFT UPPER ARM HX AV FISTULA CREATION IR EMBOLIZATION 10/14/2024 IR EMBOLIZATION 10/14/2024 [facility] SPECIAL PROCEDURES IR FISTULAGRAM 08/07/2022 [...] Leukocytosis Decubitus ulcer of sacral region, unstageable ([facility]) Pneumonia of both lungs due to methicillin susceptible Staphylococcus aureus (MSSA) (HCC) Sacral osteomyelitis (CMS/HCC) (HCC) Acute respiratory failure with hypoxia ([facility]) [J96.01] Tracheostomy care ([facility]) [Z43.0] 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[facility]) 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 Complication of tracheostomy ([facility]) ([facility]) Anemia Aortic stenosis Upper GI bleed S/P AVR Acute hypoxic respiratory failure ([facility]) Acute encephalopathy Pneumoperitoneum BRBPR (bright red blood [...] Minimal assistance Toileting Minimal assistance Feeding Independent Inventory Manager Minimal assistance Med Delivery yes Wound Care Documentation and Therapy: Wound/Incision 11/13/24 Pressure Injury Sacrum (Active) Site Assessment Unable to assess;Other (Comment) 02/21/25 0512 Odor None 02/21/25 0512 Drainage Amount Other (Comment) 02/21/25 05 Treatments Other (Comment) 02/21/25 0512 Primary Dressing [...] Date: 02/20/25 Discharging to Facility/ Agency Name: [facility] Address: [address] [place] [address] Dialysis Facility (if applicable) Name: Address: Dialysis Schedule: Phone: Fax: Administrative Operations Coordinator/Black Powder Glazing Operator signature: ICIAN SECTION Name: Jun Snyder Prognosis: excellent Condition at Discharge: stable Rehab Potential (if transferring to Rehab): excellent Recommended Labs or Other Treatments After Discharge: BMP/CBC/INR within 1 day. Follow up with PCP within 1 week to review all medications and findings of this admission. Coumadin dosing Date INR Dose 03/05 - 1.8 - 7.5mg /8 - 1.5 - 7.5 mg 6/7 - 1.6 - 6 mg 6/6 - 1.4 - 5mg 6/5 - 1.4 - 4mg 6/4 - 1.3 - 3mg 6/3 - 1.3 - 2mg 6/2 - 1.3 - 1.5mg 6/ - 1.3 - 1 mg 02/24 - 1.3 - 1 mg The individual is being admitted to a nursing facility directly from an [facility] or a unit of a hospital that is not operated by or licensed by [facility] under section 5119.14 or 5160-3-15.1 5 The individual requires the level of services provided by a nursing facility for the condition for which he or she was treated in the hospital and, Physician Certification: I certify the above information and transfer of Jun Snyder is necessary for the continuing treatment of the diagnosis listed and that he requires penitentiary facility for less than 30 days. Update [...] - 1 mg documented in this encounter [facility] 02-21-2025 Telephone encount er Note Name of caller: Padmini Contact phone number: [phone] Relationship to Patient: [facility] Provider: Mariano Practice: Infectious Disease Chief Complaint/Reason for Call: [facility] need a routine consult for this patient for Hemoptysis Cavitary lung lesion. Please advise Sheridan Best time of day caller can be reached: any Patient advised that office/PCP has 24-48 business hours to return their call: Yes [facility] 02-21-2025 Miscellaneous Notes Formattin g of this note might be different from the original. Name of caller: Padmini Contact phone number: [phone] Relationship to Patient: [facility] Provider: Mariano Practice: Infectious Disease Chief Complaint/Reason for Call: [facility] need a routine consult for this patient for Hemoptysis Cavitary lung lesion. Please advise Padmini Best time of day caller can be reached: any Patient advised that office/PCP has 24-48 business hours to return their call: Yes documented in this encounter [facility] 02-21-2025 Note [facility] per [facility] request. Await review and response regarding ability to accept. TCC notified. Electronically signed by [facility] 02-20-2025 History and physical note [...] bilateral pleural effusions. 5. Cholelithiasis, and diminutive paiute-shoshone kidneys. Past Medical History: Past Medical History: Diagnosis Date Acute renal failure (ARF) ([facility]) 10/19/2019 Anemia 12/30/2021 Calcification of abdominal aorta ([facility]) 10/08/202309/[address] abd Diverticulosis 10/08/2023 ESRD on hemodialysis ([facility]) ([facility]) 10/26/2019 Hemodialysis patient ([facility]) ([facility]) HTN (hypertension) 12/01/2022 Hypertension IgA nephropathy IgA nephropathy determined by biopsy of kidney 10/26/2019 Missed vaccination due to patient refusal 10/08/2023 Has a number of non-scientific based beliefs which interfere with his understanding and acceptance of the medical benefit of vaccination. Nonrheumatic aortic valve stenosis 10/08/2023 Paroxysmal A-fib ([facility]) ([facility]) 08/18/2023 Tobacco abuse 10/08/2023 Past Surgical History: [...] No Stress Concern Present (01/18/2025) Received from [facility] of Occupational Health - Occupational Stress Questionnaire Feeling of Stress : Not at all Social Connections: Patient Unable To Answer (12/01/2024) Received from [facility] Medical Social Connection and Isolation Panel [NHANES] Frequency of Communication with Friends and Family: Patient unable to answer Frequency of Social Gatherings with Friends and Family: Patient unable to answer Attends Lutheran Services: Patient unable to answer Active Member [...] to assess Physical Abuse: Unable to assess [facility] Domestic Abuse - Type of Abuse: Not on file [facility] Domestic Abuse - Time Frame: Not on file [facility] Domestic Abuse - Signs and Symptoms: Not on file Verbal Abuse: Unable to assess [facility] Domestic Abuse - Reported To: Not on file Housing Stability: Patient Unable To Answer (12/01/2024) Received from [facility] Housing Stability Vital Sign [...] MD Division of Hospital Medicine Inpatient Medical Services/[facility] [1] Past Surgical History: Procedure Laterality Date APPENDECTOMY CARDIAC CATHETERIZATION N/A 10/09/2024 Performed by Bob Watson MD at [facility] Cardiac Cath/EP Lab CARDIAC CATHETERIZATION Bilateral 11/01/2024 Performed by Bob Watson MD at [facility] Cardiac Cath/EP Lab CARDIAC CATHETERIZATION N/A 11/01/2024 Performed by Bob Watson MD at [facility] Cardiac Cath/EP Lab COLONOSCOPY N/A 01/24/2025 Performed by Chadd Davis MD at [facility] ENDOSCOPY FISTULAGRAM (HISTORICAL) Left 09/15/2021 LEFT UPPER ARM HX AV FISTULA CREATION IR EMBOLIZATION 10/14/2024 IR EMBOLIZATION 10/14/2024 [facility] SPECIAL PROCEDURES IR FISTULAGRAM 08/07/2022 IR FISTULAGRAM 08/07/2022 [facility] IR IMAGING TONSILLECTOMY (HISTORICAL) [2] Family History Problem Relation Name Age of Onset No Known Problems Mother No Known Problems Father [3] Allergies Allergen Reactions Lisinopril Swelling and Angioedema documented in this encounter [facility] 02-20-2025 Note [facility] 02-20-2025 Emergency department Note Called [...] placed. Wound is being cared for by penitentiary facility where he resides EMERGENCY DEPARTMENT ENCOUNTER [...] was bright red and 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 HISTORY OF PRESENT ILLNESS [...] CURRENT MEDICATIONS Previous Medications EPOETIN ROWAN-EPBX (RETACRIT) 37489 UNIT/ML INJECTION Inject 0.79 mL (7,900 Units) [...] Heart Rate Source Patient Position 02/20/25201202/20/25 17502/20/25 1751 02/20/25 175 99 % Oral Monitor Lying BP [...] bilateral pleural effusions. 5. Cholelithiasis, and diminutive paiute-shoshone kidneys. Report Dictated on Electronically Signed By: [...] of hemoptysis, he will be admitted at [facility] under the hospitalist service in case he [...] abd Diverticulosis 10/08/2023 ESRD on hemodialysis ([facility]) ([facility]) 10/26/2019 Hemodialysis patient ([facility]) ([facility]) HTN (hypertension) 12/01/2022 Hypertension IgA nephropathy IgA nephropathy determined by biopsy of kidney 10/26/2019 Missed vaccination due to patient refusal 10/08/2023 Has a number of non-scientific based beliefs which interfere with his understanding and acceptance of the medical benefit of vaccination. Nonrheumatic aortic valve stenosis 10/08/2023 Paroxysmal A-fib ([facility]) ([facility]) 08/18/2023 Tobacco abuse 10/08/2023 [2] Past Surgical History: Procedure Laterality Date APPENDECTOMY CARDIAC CATHETERIZATION N/A 10/09/2024 Performed by Bob Watson MD at [facility] Cardiac Cath/EP Lab CARDIAC CATHETERIZATION Bilateral 11/01/2024 Performed by Bob Watson MD at [facility] Cardiac Cath/EP Lab CARDIAC CATHETERIZATION N/A 11/01/2024 Performed by Bob Watson MD at [facility] Cardiac Cath/EP Lab COLONOSCOPY N/A 01/24/2025 Performed by Chadd Davis MD at [facility] ENDOSCOPY FISTULAGRAM (HISTORICAL) Left 09/15/2021 LEFT UPPER ARM HX AV FISTULA CREATION IR EMBOLIZATION 10/14/2024 IR EMBOLIZATION 10/14/2024 [facility] SPECIAL PROCEDURES IR FISTULAGRAM 08/07/2022 [...] Concern Present (01/18/2025) Received from [facility] of Occupational Health - Occupational Stress Questionnaire Feeling of Stress : Not at all Social Connections: Patient Unable To Answer (12/01/2024) Received from [facility] Medical Social Connection and Isolation Panel [NHANES] Frequency of Communication with Friends and Family: Patient unable to answer Frequency of Social Gatherings with Friends and Family: Patient unable to answer Attends Lutheran Services: Patient unable to answer Active Member [...] was bright red and 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 documented in this encounter [facility] 02-14-2025 History of Presen t illness Narrative Images from the original note were not included. [facility] Medical [facility] Infectious Diseases Advanced Practice Provider Outpatient Progress Note HISTORYOF PRESENT ILLNESS 59 yo male with PMHx significant for ESRD on HD via AVF, HTN, PAD who was admitted at [facility] (10/03/24-11/28/24) where he underwent AVR [...] to SNF 01/18/25. Patient then presented to [facility] 01/19 after inadvertently self-dislodging tracheostomy. He was transferred to [facility] ICU for airway management and [...] Patient Unable To Answer (12/01/2024) Received from [facility] Overall Financial Resource Strain (CARDIA) Difficulty of Paying Living Expenses: Patient unable to answer Food Insecurity: Patient Unable To Answer (12/01/2024) Received from [facility] Hunger Vital Sign Worried About Running Out of Food in the Last Year: Patient unable to answer Ran Out of Food in the Last Year: Patient unable to answer Transportation Needs: No Transportation Needs (01/18/2025) Received from [facility] Transportation Source Has lack of transportation kept you from medical appointments or from getting medications?: No Has lack of transportation kept you from meetings, work, or from getting things needed for daily living?: No Physical Activity: Not on file Stress: No Stress Concern Present (01/18/2025) Received from [facility] of Occupational Health - Occupational Stress Questionnaire Feeling of Stress : Not at all Social Connections: Patient Unable To Answer (12/01/2024) Received from [facility] Social Connection and Isolation Panel [NHANES] Frequency of Communication with Friends and Family: Patient unable to answer Frequency of Social Gatherings with Friends and Family: Patient unable to answer Attends Lutheran Services: Patient unable to answer Active Member of Clubs or Organizations: Patient unable to answer Attends Club or Organization Meetings: Patient unable to answer Marital Status: Patient unable to answer Intimate Partner Violence: Patient Unable To Answer (11/28/2024) Received from [facility] Domestic Abuse Assessment Do you feel safe in your relationships at home?: Unable to assess Physical Abuse: Unable to assess [facility] Domestic Abuse - Type of Abuse: Not on file [facility] Domestic Abuse - Time Frame: Not on file [facility] Domestic Abuse - Signs and Symptoms: Not on file Verbal Abuse: Unable to assess [facility] Domestic Abuse - Reported To: Not on file Housing Stability: Patient Unable To Answer (12/01/2024) Received from [facility] Housing Stability Vital Sign [...] neg 01/22 Acinetobacter baumannii PCR: neg Previous ([facility]) 01/02- sacral wound cx- E faecalis [...] accounting for open encounter. Mikala MORAN PA-C [facility] Infectious Disease [1] Past Medical History: Diagnosis Date Acute renal failure (ARF) ([facility]) 10/19/2019 Anemia 12/30/2021 Calcification of abdominal aorta ([facility]) 10/08/202309/[address] abd Diverticulosis 10/08/2023 ESRD on hemodialysis ([facility]) ([facility]) 10/26/2019 Hemodialysis patient ([facility]) ([facility]) HTN (hypertension) 12/01/2022 Hypertension IgA nephropathy IgA nephropathy determined by biopsy of kidney 10/26/2019 Missed vaccination due to patient refusal 10/08/2023 Has a number of non-scientific based beliefs which interfere with his understanding and acceptance of the medical benefit of vaccination. Nonrheumatic aortic valve stenosis 10/08/2023 Paroxysmal A-fib ([facility]) ([facility]) 08/18/2023 Tobacco abuse 10/08/2023 [2] Family History Problem Relation Name Age of Onset No Known Problems Mother No Known Problems Father documented in this encounter [facility] 02-02-2025 History of Presen t illness Narrative Images from the original note were not included. Pt discharged to [facility] on 02/01/25. Updated tracker with hospital doses. Warfarin dosing instructions: 0.5 mg per day. New interacting meds: N/a Next SAILAJA appt: post SNF documented in this encounter [facility] 02-02-2025 History of Presen t illness Narrative Images from the original note were not included. Pt discharged to [facility] on 02/01/25. Updated tracker with hospital doses. Warfarin dosing instructions: 0.5 mg per day. New interacting meds: N/a Next SAILAJA appt: post SNF Patient is still at [facility] ([phone]). I left a message for ELIA Anderson, regarding discharge plans. documented in this encounter [facility] 02-02-2025 History of Presen t illness Narrative Images from the original note were not included. Pt discharged to [facility] on 02/01/25. Updated tracker with hospital doses. Warfarin dosing instructions: 0.5 mg per day. New interacting meds: N/a Next SAILAJA appt: post SNF Patient is still at [facility] ([phone]). I left a message for ELIA Anderson, [...] readmitted on 02/20 and discharged back to [facility] on 03/05. documented in this encounter [facility] 02-01-2025 Nurse Note Transport here to take patient to [facility]. Wound Vac tubing clamped and disconnected from wound vac. Facility will determine if tubing is compatible with their wound vacs. Wound Vac Dressing leaking with foam falling out. Dressing removed and W-D drsg applied. Patient Name: Jun Snyder Patient : 1965 Acct: [id number] Date of Admission: 01/19/2025 [facility] Code Status: Full Code Allergies: Allergies Allergen Reactions Lisinopril Swelling and Angioedema Diagnosis: Patient Active Problem List Diagnosis Anemia Paroxysmal A-fib ([facility]) ([facility]) HTN (hypertension) ESRD on hemodialysis ([facility]) ([facility]) IgA nephropathy determined by biopsy of kidney Diverticulosis Nonrheumatic aortic valve stenosis Calcification of abdominal aorta ([facility]) Missed vaccination due to patient refusal Tobacco abuse Alcohol use disorder in remission Atrial flutter, unspecified type ([facility]) RSV (acute bronchiolitis due to respiratory syncytial virus) Aortic stenosis Upper GI bleed S/P AVR Acute hypoxic respiratory failure ([facility]) Acute encephalopathy Pneumoperitoneum Gastric ulceration Severe malnutrition ([facility]) ([facility]) Pleural effusion Peritonitis due to fungus ([facility]) History of abdominal surgery Leg DVT (deep venous thromboembolism), acute, left (HCC) Ischemic ulcer of toe of left foot, limited to breakdown of skin ([facility]) Tracheostomy dependence ([facility]) Leukocytosis Decubitus ulcer of sacral region, unstageable ([facility]) Pneumonia of both lungs due to methicillin susceptible Staphylococcus aureus (MSSA) ([facility]) Sacral osteomyelitis (CMS/HCC) ([facility]) Acute respiratory failure with hypoxia ([facility]) [J96.01] Tracheostomy care ([facility]) [Z43.0] Pulmonary embolism ([facility]) 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 Complication of tracheostomy (CMS/HCC) ([facility]) BRBPR (bright red blood per rectum) Treatment: [...] 01/31/25 0400 -- -- -- -- Diminished Ecchymosis;Green Lane;Mark Warm;Dry Flat;Gastrostomy tube Active 01/31/25 0801 Alert [...] mL/hr, Last Rate: 20 mL/hr (01/30/25 183) Safety - Before each treatment: Dialysis Machine No.: [id number] Machine Number: [id number] Dialyzer Lot No.: [id number] Tubing Lot Number: [id number] All Connections Secure: Yes Venous Parameters Set: Yes Arterial Parameters Set: Yes NS Bag: Yes Saline Line Double Clamped: Yes Dialyzer: Nipro Prime Volume (mL): 200 mL RO Machine Number: [id number] RO Machine Log Sheet Completed: Yes Machine Alarm Self Test: Completed, Passed (722) (01/31/25 0743) Air Foam Detector: Tested, Proper Function, pH Reading Extracorporeal Circuit Tested for Integrity: Yes Machine Conductivity: 13.7 Manual Conductivity: 13.7 Manual Ph: 7 Bleach Test (Neg): Yes Bath Temperature: 36 C (96.8 F) Conductivity Meter Serial #: [id number] Machine Functioning Alarm Free? Yes Dialysis Bath: K+ (Potassium): 2 Ca+ (Calcium): 2.5 Na+ (Sodium): 137 HCO3 (Bicarb): 35 Bicarbonate Concentrate Lot No.: [id number] Acid Concentrate Lot No.: [id number] Chlorine Testing - Before each treatment and [...] to Education: Verbalized Understanding Patient arrived from [facility], Dr. Borrero in to speak with [...] Name: Jun Snyder Patient : 1965 Acct: [id number] Date of Admission: 01/19/2025 [facility] Code Status: Full Code Allergies: Allergies Allergen Reactions Lisinopril Swelling and Angioedema Diagnosis: Patient Active Problem List Diagnosis Anemia Paroxysmal A-fib ([facility]) ([facility]) HTN (hypertension) ESRD on hemodialysis ([facility]) ([facility]) IgA nephropathy determined by biopsy of kidney Diverticulosis Nonrheumatic aortic valve stenosis Calcification of abdominal aorta ([facility]) Missed vaccination due to patient refusal Tobacco abuse Alcohol use disorder in remission Atrial flutter, unspecified type ([facility]) RSV (acute bronchiolitis due to respiratory syncytial virus) Aortic stenosis Upper GI bleed S/P AVR Acute hypoxic respiratory failure ([facility]) Acute encephalopathy Pneumoperitoneum Gastric ulceration Severe malnutrition (CMS/HCC) ([facility]) Pleural effusion Peritonitis due to fungus ([facility]) History of abdominal surgery Leg DVT (deep venous thromboembolism), acute, left ([facility]) Ischemic ulcer of toe of left foot, limited to breakdown of skin ([facility]) Tracheostomy dependence ([facility]) Leukocytosis Decubitus ulcer of sacral region, unstageable ([facility]) Pneumonia of both lungs due to methicillin susceptible Staphylococcus aureus (MSSA) ([facility]) Sacral osteomyelitis ([facility]) ([facility] Acute respiratory failure with hypoxia ([facility]) [J96.01] Tracheostomy care ([facility]) [Z43.0] Pulmonary embolism ([facility]) 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 Complication of tracheostomy ([facility]) ([facility]) BRBPR (bright red blood per rectum) Treatment: [...] 01/29/25 0800 -- -- -- -- Clear [address];Mark Warm;Dry Flat;Soft;Gastrostomy tube Active 01/29/25 0839 Alert (0) 3 Regular None (Room air) Clear [address] Warm;Dry;No swelling Soft Active 01/29/25 1210 Alert (0) 3 Regular None (Room air) Clear [address] -- -- -- Labs Lab Results Component Value Date/Time WBC 9.4 01/29/2025 0337 HGB 8.6 (L) 01/29/2025 033 HGB 9.4 11/11/2024 0230 HCT 27.3 (L) 01/29/2025336 PLT 271 01/29/2025 033 NA 134 (L) 01/29/2025 033 K 3.7 01/29/2025 033 CL 94 (L) 01/29/2025 033 CO2 23 01/29/2025 033 BUN 21 01/29/2025336 CREATININE 4.17 (H) 01/29/2025 033 CREATININE 9.99 (H) 10/27/2019544 CALCIUM 9.8 01/29/2025336 PHOS 4.9 (H) 01/29/2025336 IV Drips and Rate/Dose sodium chloride, 20 mL/hr, Last Rate: 20 mL/hr (01/25/252003) Safety - Before each treatment: Dialysis Machine No.: [id number] RO Machine Number: [id number] Dialyzer Lot No.: [id number] Tubing Lot Number: [id number] All Connections Secure: Yes Venous Parameters Set: Yes Arterial Parameters Set: Yes NS Bag: Yes Saline Line Double Clamped: Yes Dialyzer: Nipro Prime Volume (mL): 200 mL RO Machine Number: [id number] RO Machine Log Sheet Completed: Yes Machine Alarm Self Test: Completed, Passed (01/29/25729) Air Foam Detector: Tested, Proper Function, pH Reading Extracorporeal Circuit Tested for Integrity: Yes Machine Conductivity: 13.8 Manual Conductivity: 13.8 Manual Ph: 7 Bleach Test (Neg): Yes Bath Temperature: 36 C (96.8 F) Conductivity Meter Serial #: [id number] Machine Functioning Alarm Free? Yes Dialysis Bath: K+ (Potassium): 3 Ca+ (Calcium): 2.5 Na+ (Sodium): 137 HCO3 (Bicarb): 35 Bicarbonate Concentrate Lot No.: [id number] Acid Concentrate Lot No.: [id number] Chlorine Testing - Before each treatment and [...] 210 mmHg 100 600 Yes Pt stable [id number]. 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4 (L) 01/26/2025 0952 PLT 265 01/26/2025247 NA 136 01/26/2025247 K 5.1 01/26/2025247 CL 100 01/26/2025247 CO2 20 (L) 01/26/2025247 BUN 19 01/26/2025247 CREATININE 3.37 (H) 01/26/2025247 CREATININE 9.99 (H) 10/27/2019 0545 CALCIUM 9.0 01/26/2025247 PHOS 5.3 (H) 01/26/2025 0248 IV Drips and Rate/Dose heparin, 5-30 Units/kg/hr, Last Rate: 7 Units/kg/hr (01/26/251218) sodium chloride, 20 mL/hr, Last Rate: 20 mL/hr (01/25/252003) Safety - Before each treatment: Dialysis Machine No.: [id number] RO Machine Number: [id number] Dialyzer Lot No.: [id number] Tubing Lot Number: [id number] All Connections Secure: Yes Venous Parameters Set: Yes Arterial Parameters Set: Yes NS Bag: Yes Saline Line Double Clamped: Yes Dialyzer: Nipro Prime Volume (mL): 200 mL RO Machine Number: [id number] RO Machine Log Sheet Completed: Yes Machine Alarm Self Test: Completed, Passed (1226) (01/26/25 122) Air Foam Detector: Tested, Proper Function, pH Reading Extracorporeal Circuit Tested for Integrity: Yes Machine Conductivity: 13.9 Manual Conductivity: 14 Manual Ph: 7.4 Bleach Test (Neg): Yes Bath Temperature: 36 C (96.8 F) Conductivity Meter Serial #: [id number] Machine Functioning Alarm Free? Yes Dialysis Bath: K+ (Potassium): 2 Ca+ (Calcium): 2.5 Na+ (Sodium): 137 HCO3 (Bicarb): 35 Bicarbonate Concentrate Lot No.: [id number] Acid Concentrate Lot No.: [id number] Chlorine Testing - Before each treatment and [...] -- -- -- -- tx completed, UF [id number] Vital Signs Patient Vitals for the past [...] Name: Jun Snyder Patient : 1965 Acct: [id number] Date of Admission: 01/19/2025 Room[facility]: [facility] A Code Status: Full Code Allergies: Allergies Allergen Reactions Lisinopril Swelling and Angioedema Diagnosis: Patient Active Problem List Diagnosis Anemia Paroxysmal A-fib ([facility]) ([facility]) HTN (hypertension) ESRD on hemodialysis ([facility]) ([facility]) IgA nephropathy determined by biopsy of kidney Diverticulosis Nonrheumatic aortic valve stenosis Calcification of abdominal aorta ([facility]) Missed vaccination due to patient refusal Tobacco abuse Alcohol use disorder in remission Atrial flutter, unspecified type ([facility]) RSV (acute bronchiolitis due to respiratory syncytial virus) Aortic stenosis Upper GI bleed S/P AVR Acute hypoxic respiratory failure ([facility]) Acute encephalopathy Pneumoperitoneum Gastric ulceration Severe malnutrition ([facility]) ([facility]) Pleural effusion Peritonitis due to fungus ([facility]) History of abdominal surgery Leg DVT (deep venous thromboembolism), acute, left ([facility]) Ischemic ulcer of toe of left foot, limited to breakdown of skin ([facility]) Tracheostomy dependence ([facility]) Leukocytosis Decubitus ulcer of sacral region, unstageable ([facility]) Pneumonia of both lungs due to methicillin susceptible Staphylococcus aureus (MSSA) ([facility]) Sacral osteomyelitis ([facility]) ([facility] Acute respiratory failure with hypoxia ([facility]) [J96.01] Tracheostomy care ([facility]) [Z43.0] Pulmonary embolism ([facility]) 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 Complication of tracheostomy ([facility]) ([facility]) BRBPR (bright red blood per rectum) Treatment: [...] - Before each treatment: Dialysis Machine No.: [id number] Machine Number: [id number] Dialyzer Lot No.: [id number] Tubing Lot Number: [id number] All Connections Secure: Yes Venous Parameters Set: Yes Arterial Parameters Set: Yes NS Bag: Yes Saline Line Double Clamped: Yes Dialyzer: Nipro Prime Volume (mL): 200 mL RO Machine Number: [id number] RO Machine Log Sheet Completed: Yes Machine Alarm Self Test: Completed, Passed (test passed at 0923) (01/24/25 0925) Air Foam Detector: Tested, Proper Function, pH Reading Extracorporeal Circuit Tested for Integrity: Yes Machine Conductivity: 13.8 Manual Conductivity: 13.8 Manual Ph: 7.2 Bleach Test (Neg): Yes (water check negative at 0910) Bath Temperature: 36 C (96.8 F) Conductivity Meter Serial #: [id number] Machine Functioning Alarm Free? Yes Dialysis Bath: K+ (Potassium): 3 Ca+ (Calcium): 2.5 Na+ (Sodium): 137 HCO3 (Bicarb): 35 Bicarbonate Concentrate Lot No.: [id number] Acid Concentrate Lot No.: [id number] Chlorine Testing - Before each treatment and [...] Name: Jun Snyder Patient : 1965 Acct: [id number] Date of Admission: 01/19/2025 Room/Bed: T3-321/T3-321 A Code Status: Full Code Allergies: Allergies Allergen Reactions Lisinopril Swelling and Angioedema Diagnosis: Patient Active Problem List Diagnosis Anemia Paroxysmal A-fib ([facility]) ([facility]) HTN (hypertension) ESRD on hemodialysis ([facility]) ([facility]) IgA nephropathy determined by biopsy of kidney Diverticulosis Nonrheumatic aortic valve stenosis Calcification of abdominal aorta (HCC) Missed vaccination due to patient refusal Tobacco abuse Alcohol use disorder in remission Atrial flutter, unspecified type ([facility]) RSV (acute bronchiolitis due to respiratory syncytial virus) Aortic stenosis Upper GI bleed S/P AVR Acute hypoxic respiratory failure ([facility]) Acute encephalopathy Pneumoperitoneum Gastric ulceration Severe malnutrition ([facility]) ([facility]) Pleural effusion Peritonitis due to fungus ([facility]) History of abdominal surgery Leg DVT (deep venous thromboembolism), acute, left ([facility]) Ischemic ulcer of toe of left foot, limited to breakdown of skin ([facility]) Tracheostomy dependence ([facility]) Leukocytosis Decubitus ulcer of sacral region, unstageable ([facility]) Pneumonia of both lungs due to methicillin susceptible Staphylococcus aureus (MSSA) ([facility]) Sacral osteomyelitis ([facility]) ([facility]) Acute respiratory failure with hypoxia ([facility]) [J96.01] Tracheostomy care ([facility]) [Z43.0] Pulmonary embolism ([facility]) 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 Complication of tracheostomy ([facility]) ([facility]) Treatment: Hemodialysis 1:1 Priority: Routine Location: ICU [...] CALCIUM 9.8 01/22/2025418 PHOS 6.8 (H) 01/22/2025 0419 IV Drips and Rate/Dose Safety - Before each treatment: Dialysis Machine No.: [id number] Machine Number: [id number] Dialyzer Lot No.: [id number] Tubing Lot Number: [id number] All Connections Secure: Yes Venous Parameters Set: Yes Arterial Parameters Set: Yes NS Bag: Yes Saline Line Double Clamped: Yes Dialyzer: Nipro Prime Volume (mL): 250 mL RO Machine Number: [id number] RO Machine Log Sheet Completed: Yes Machine Alarm Self Test: Completed, Passed (01/22/25850) Air Foam Detector: Tested, Proper Function, pH Reading Extracorporeal Circuit Tested for Integrity: Yes Machine Conductivity: (13.8) Manual Conductivity: 14 Manual Ph: 7.2 Bleach Test (Neg): Yes Bath Temperature: 36 C (96.8 F) Conductivity Meter Serial #: [id number] Machine Functioning Alarm Free? Yes Dialysis Bath: K+ (Potassium): 2 Ca+ (Calcium): 2.5 Na+ (Sodium): 137 HCO3 (Bicarb): 35 Bicarbonate Concentrate Lot No.: [id number] Acid Concentrate Lot No.: [id number] Chlorine Testing - Before each treatment and [...] 101 (!) 11 97 % 01/22/25 1115 / -- -- 105 18 96 % 01/22/25 1110 (!) 89 -- -- 101 22 96 % 01/22/25 [...] Name: Jun Snyder Patient : 1965 Acct: [id number] Date of Admission: 01/19/2025 Room[facility]Bed: [facility] A Code Status: Full Code Allergies: Allergies Allergen Reactions Lisinopril Swelling and Angioedema Diagnosis: Patient Active Problem List Diagnosis Anemia Paroxysmal A-fib ([facility]) ([facility]) HTN (hypertension) ESRD on hemodialysis ([facility]) ([facility]) IgA nephropathy determined by biopsy of kidney Diverticulosis Nonrheumatic aortic valve stenosis Calcification of abdominal aorta ([facility]) Missed vaccination due to patient refusal Tobacco abuse Alcohol use disorder in remission Atrial flutter, unspecified type ([facility]) RSV (acute bronchiolitis due to respiratory syncytial virus) Aortic stenosis Upper GI bleed S/P AVR Acute hypoxic respiratory failure ([facility]) Acute encephalopathy Pneumoperitoneum Gastric ulceration Severe malnutrition ([facility]) ([facility]) Pleural effusion Peritonitis due to fungus ([facility]) History of abdominal surgery Leg DVT (deep venous thromboembolism), acute, left ([facility]) Ischemic ulcer of toe of left foot, limited to breakdown of skin ([facility]) Tracheostomy dependence ([facility]) Leukocytosis Decubitus ulcer of sacral region, unstageable ([facility]) Pneumonia of both lungs due to methicillin susceptible Staphylococcus aureus (MSSA) ([facility]) Sacral osteomyelitis ([facility]) ([facility] Acute respiratory failure with hypoxia ([facility]) [J96.01] Tracheostomy care ([facility]) [Z43.0] Pulmonary embolism (HCC) 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 Complication of [...] - Before each treatment: Dialysis Machine No.: [id number] RO Machine Number: [id number] Dialyzer Lot No.: [id number] Tubing Lot Number: [id number] All Connections Secure: Yes Venous Parameters Set: Yes Arterial Parameters Set: Yes NS Bag: Yes Saline Line Double Clamped: Yes Dialyzer: Nipro Prime Volume (mL): 200 mL RO Machine Number: [id number] RO Machine Log Sheet Completed: Yes Machine Alarm Self Test: Completed, Passed (1000) (01/20/25 1000) Air Foam Detector: Tested, Proper Function, pH Reading Extracorporeal Circuit Tested for Integrity: Yes Machine Conductivity: 13.6 Manual Conductivity: 13.8 Manual Ph: 7.2 Bleach Test (Neg): Yes Bath Temperature: 36 C (96.8 F) Conductivity Meter Serial #: [id number] Machine Functioning Alarm Free? Yes Dialysis Bath: K+ (Potassium): 2 Ca+ (Calcium): 2.5 Na+ (Sodium): 137 HCO3 (Bicarb): 35 Bicarbonate Concentrate Lot No.: [id number] Acid Concentrate Lot No.: [id number] Chlorine Testing - Before each treatment and [...] 80 600 Yes ID at bedside, UF [id number] 01/20/25 1130 400 mL/min 600 ml/hr -140 [...] 600 Yes Pt resting, UF removed 1105 04/26/25 1245 200 mL/min -- -- -- -- [...] Education: Verbalized Understanding documented in this encounter [facility] 02-01-2025 Miscellaneous Notes Formattin g of this note might be different from the original. 7000 created in [place] per TCC request. Facility notified via Careport. Authorization approved for the [facility] through 02/02/25, discharge orders placed, ROSENDO completed. Transportation placed and confirmed for today 02/01/25 at 330pm to the [facility], physician/patient/financial secretary/RN aware. OBSTETRICIAN tasked to send 7000 and DC summary. Hep B panels, 3 days of HD flowsheets, MAR and OPAT sent to the [facility] via [facility]Port. Call placed to the [facility] to confirm able to still take patient [...] Nutrition Support Outcome: Progressing Updates [facility] via [facility] per TCC request. Await [...] Nutrition Support Outcome: Progressing Message sent to [employer] to start [facility] auth for [facility]. Problem: Pain - Adult Goal: [...] order to start auth to return to [facility] per previous TCC note of plan. [...] Improved Outcome: Progressing Updates placed to [facility] Return - [facility] via Careport per TCC request. Await review and response regarding ability to accept. TCC notified. Electronically signed by [facility] Sabino Rodrigues Tasked [facility] to send updates to [facility], per their request. Warfarin bridging per MD notes, patient will need NEW auth for return to [facility]. Problem: Pain - Adult Goal: [...] Outcome: Progressing [facility] per TCC request. Care Management Progress Note PCU transfer pending. Received one unit PRBC this AM for low Hgb. HD today. Heparin drip ongoing. IVAB (plan for 6 week course). Wound vac to sacral wound. Room Air. Dysphagia diet; pureed. DC plan - [facility]. Facility updated via careport. OBSTETRICIAN asked to send dialysis note per their [...] Early Mobility/Exercise Safety Screen: Activity: Bed mobility -[facility] Score: Bed activity LDAs Peripheral IV 01/19/25 Right Forearm (Active) Number of days: 4 Peripheral IV 01/23/25 Anterior;Distal;Right Forearm (Active) Number of days: 0 Enterostomy Gastric 20 Fr. LUQ (Active) Number of days: 70 - Central Line indicated: N/A - Payne indicated: N/A OPAT placed to [facility] via Careport per TCC request. 01/25/25 1047 Rapid Rounds Attendance Administrative Operations Coordinator Planned Discharge Disposition SNF Today we still await Administering IV medications;Kettle Room Helper recommendations (comment);Clinical stability;Symptomatic control;Post-discharge arrangement completion (comment) Patient remains on MICU. S/P colonoscopy 01/24-negative for active bleeding. Heparin drip resumed post procedure. Wound vac to sacral wound; IVAB till 02/13; OPAT under chart review > media. Plan for MBSS. Room Air. DC plan - [facility] [place] when medically appropriate. CM will continue to [...] Goal: Nutrition Support [facility]come: [facility] Name[facility] Jun Snyder Procedure Date: 01/24/2025 12:37 PM Gender: Male Date of : 1965 Age: 59 Admit Type: Inpatient Note Status: Finalized Endoscopist: Chadd Davis MD, [id number] Procedure: Colonoscopy Indications: Evaluation of unexplained GI [...] by the physician, the nurse and the cabinet builder in the pre-procedure area in the procedure [...] anticoagulant use Procedure Code(s): --- Professional --- 61939, Colonoscopy, flexible; diagnostic, including collection of specimen(s) by brushing or washing, when performed (separate procedure) --- Technical --- 62778, Colonoscopy, flexible; diagnostic, including collection of specimen(s) by brushing or washing, when performed (separate procedure) Diagnosis Code(s): --- Professional --- K64.0, First degree hemorrhoids K92.1, Melena (includes Hematochezia) Z79.01, senior care (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 anticoagulants K57.30, Diverticulosis of large intestine without perforation or abscess without bleeding --- Technical --- K64.0, First degree hemorrhoids K92.1, Melena (includes Hematochezia) Z79.01, 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 All rights reserved. The codes documented in this report are preliminary and upon information coder review may be revised to meet current [...] 20 mL/hr, Last Rate: 20 mL/hr (01/23/25 9358) D=Delirium Overall CAM-ICU: Negative E=Exercise and Early [...] Note: Diagnosis: Principal Problem: Complication of tracheostomy (CMS/[facility]) ([facility]) Active Problems: Severe malnutrition (CMS/HCC) ([facility]) Chief Complaint: Jun Snyder is a 59 [...] care team, reviewed Health Care Power of Technologies Division Chair (HCPOA) with patient. Patient agreeable to complete [...] SW; son Omar primary agent and Toma, laurence SO, secondary agent. DC plan - return to [facility]. CM will continue to follow Length of Stay (Days): 1 GMLOS: 4.5 Images from the original note were not included. [facility] Palliative Care Transitions of Care Note Jun Snyder : 1965 ADMIT DATE: 01/19/2025 DISCHARGE DATE: TBD PRIMARY CARE PHYSICIAN: Leilani Troncoso CODE STATUS: Full Code DISCHARGE DIAGNOSES: Principal Problem: Complication of tracheostomy (CMS/HCC) (HCC) Active Problems: Severe malnutrition (CMS/HCC) ([facility]) BRBPR (bright red blood per rectum) HOSPITAL [...] dislodging his tracheostomy, and was brought to [facility] ED for further care. Palliative care consulted for goals of care. Goals of care - Patient has capacity to make medical decisions - legal surrogate decision maker VIRGINIA Nelson, 1st alternate is significant other Toma - goals of care include: 1) to continue current management, continue with aggressive medical therapy, procedures, antibiotics at this time - planning to eventually discharge to [facility] - will forward chart to Palliative [...] AV replacement Supratherapeutic INR - [employer] valve in 09/2024 - coumadin held due to bleeding and supratherapeutic levels Chronic respiratory failure s/p tracheostomy Tracheostomy dislodgement - has been saturating well without trach on RA so has not been replaced FOLLOW UP TESTING, PENDING RESULTS OR REFERRALS AT TRANSITIONAL CARE VISIT: No DISPOSITION: Skilled Rehab Facility FACILITY/HOME CARE AGENCY NAME: [facility] Follow up with Palliative Care on patient to call. Reason for Outpatient/Home/ECF Palliative Care follow-up: Continue goals of care discussion SIGNED: Tex Cotto MD 01/25/2025, 11:45 AM Problem: Pain - Adult Goal: Verbalizes/displays adequate comfort level or baseline comfort level Outcome: Progressing Flowsheets (Taken 01/22/2025 1584) Verbalizes/displays adequate comfort level or baseline comfort [...] The patient was placed on a cardiac surgeon and vital signs, pulse oximetry, and level [...] signed by this procedure note. [facility] Patient Name: Jun Snyder Procedure Date: 01/21/2025 9:59 AM Gender: Male Date of : 1965 Age: 59 Admit Type: Inpatient Note Status: Finalized Endoscopist: ELDON Alba MD, [id number] Procedure: Upper GI endoscopy Indications: Acute post [...] by the physician, the nurse and the cabinet builder in the pre-procedure area in the procedure [...] loss: None. Procedure Code(s): --- Professional --- 88496, Esophagogastroduodenoscopy, flexible, transoral; diagnostic, including collection of specimen(s) by brushing or washing, when performed (separate procedure) --- Technical --- 76317, Esophagogastroduodenoscopy, flexible, transoral; diagnostic, including collection of [...] D62, Acute posthemorrhagic anemia CPT copyright 2021 [employer]. All rights reserved. The codes documented in this report are preliminary and upon information coder review may be revised to meet current [...] Care Plan Patient was transferred over from [facility] after self-dislodged tracheostomy this morning [...] and treatment plans Return referral placed to [facility] via [facility] per TCC request. Await review and response regarding ability to accept. TCC notified. 01/19/25 1300 Rapid Rounds Attendance Administrative Operations Coordinator Planned Discharge Disposition SNF Today we still await Clinical stability;Kettle Room Helper recommendations (comment);Symptomatic control;Post-discharge arrangement completion (comment) Patient admitted due to trach dislodgement. Patient was discharged from LTAC to the [facility]; there only a matter of hours per [...] He would like patient to return to [facility] SNF is able at DC. Does not want patient to return to [facility]. OBSTETRICIAN asked to place referral to [facility]. CM will continue to follow for DC [...] improved Outcome: Progressing documented in this encounter [facility] 02-01-2025 History of Presen t illness Narrative Images from the original note were not included. [facility] Medical [facility] - Infectious Diseases Advanced Practice Provider Progress [...] of use of antimicrobials. Mikala MORAN PA-C [facility] Infectious Disease Nephrology Progress Note Following for [...] interval not displayed. Recent Labs 01/30/25 0047 01/31/25902/01/25113 NA 135* 138 136 K 3.7 4.3 [...] not included. Speech-Language Pathology SPEECH LANGUAGE PATHOLOGY [facility] Dysphagia Treatment Note Patient Name: Jun [...] strategies. Plan & Recommendations Plan: Continue acute QUALITY IMPROVEMENT MANAGER therapy per initial plan of care and [...] Expected End: 02/02/25 Resolved: 01/25/25 Therapy Time QUALITY IMPROVEMENT MANAGER Individual Minutes Time In: 816 Time Out: 829 Minutes: 13 KARLA Salazar Hospitalist Progress Note Subjective: Admit Date: 01/19/2025 PCP: Leilani Troncoso Room#: 1C-144/1C-144 A Chief Complaint Patient presents with Tracheostomy Tube Change Brief Hospital course: Jun Snyder is a 59 y.o. male who who presented to [facility] 01/19 after inadvertent removal of his tracheostomy. He was transferred to [facility] ICU for surgical evaluation. On [...] HD successfully. hemodynamically stable. Transferred out to [facility] 01/27 ID following for sacral osteomyelitis, s/p wound debridement to bone on 04/08, cultures grew E faecalis and Clostridium, continue with renally dosed ampicillin sulbactam for 6 weeks course through 02/13/2025, needs tunneled line, status post IR CVC tunneled line on 01/29 Nephrology following, on dialysis QUALITY IMPROVEMENT MANAGER following PT/OT recommends SNF Patient will be [...] History: Diagnosis Date Acute renal failure (ARF) ([facility]) 10/19/2019 Anemia 12/30/2021 Calcification of abdominal aorta ([facility]) 10/08/202309/[address] abd Diverticulosis 10/08/2023 ESRD on hemodialysis ([facility]) ([facility]) 10/26/2019 Hemodialysis patient ([facility]) ([facility]) HTN (hypertension) 12/01/2022 Hypertension IgA nephropathy IgA nephropathy determined by biopsy of kidney 10/26/2019 Missed vaccination due to patient refusal 10/08/2023 Has a number of non-scientific based beliefs which interfere with his understanding and acceptance of the medical benefit of vaccination. Nonrheumatic aortic valve stenosis 10/08/2023 Paroxysmal A-fib ([facility]) ([facility]) 08/18/2023 Tobacco abuse 10/08/2023 Adult diet Dysphagia [...] by ID -S/p tunneled central line placement -QUALITY IMPROVEMENT MANAGER follow, dysphagia diet -PT OT DC recommend [...] MD Division of Hospital Medicine Inpatient Medical Services/[facility] Anticoagulation Management Service ([facility]) Inpatient Warfarin Consult HPI: Jun Snyder is a 59 y.o. male admitted on 01/19/2025 for Complication of tracheostomy ([facility]) ([facility]) [J95.00] Past Medical History: Diagnosis Date Acute renal failure (ARF) ([facility]) 10/19/2019 Anemia 12/30/2021 Calcification of abdominal aorta ([facility]) 10/08/202309/[address] abd Diverticulosis 10/08/2023 ESRD on hemodialysis ([facility]) ([facility]) 10/26/2019 Hemodialysis patient ([facility]) ([facility]) HTN (hypertension) 12/01/2022 Hypertension IgA nephropathy IgA nephropathy determined by biopsy of kidney 10/26/2019 Missed vaccination due to patient refusal 10/08/2023 Has a number of non-scientific based beliefs which interfere with his understanding and acceptance of the medical benefit of vaccination. Nonrheumatic aortic valve stenosis 10/08/2023 Paroxysmal A-fib ([facility]) ([facility]) 08/18/2023 Tobacco abuse 10/08/2023 Patient is on [...] dose accordingly 3. Will facilitate f/u at [facility] upon discharge Tiffanie Dial RPh [facility] is available daily [phone] via [employer]. If no response on [employer] Chat then please page [phone]. Images from the original note were not included. OCCUPATIONAL THERAPY [facility] Re-Evaluation Name/MRN: Jair Snyder ([id number]) Evaluation Date: 01/31/2025 Date of : 1965 [...] History: Diagnosis Date Acute renal failure (ARF) ([facility]) 10/19/2019 Anemia 12/30/2021 Calcification of abdominal aorta ([facility]) 10/08/202309/[address] abd Diverticulosis 10/08/2023 ESRD on hemodialysis ([facility]) ([facility]) 10/26/2019 Hemodialysis patient ([facility]) ([facility]) HTN (hypertension) 12/01/2022 Hypertension IgA nephropathy IgA nephropathy determined by biopsy of kidney 10/26/2019 Missed vaccination due to patient refusal 10/08/2023 Has a number of non-scientific based beliefs which interfere with his understanding and acceptance of the medical benefit of vaccination. Nonrheumatic aortic valve stenosis 10/08/2023 Paroxysmal A-fib ([facility]) ([facility]) 08/18/2023 Tobacco abuse 10/08/2023 Past Surgical History: Past Surgical History: Procedure Laterality Date APPENDECTOMY CARDIAC CATHETERIZATION N/A 10/09/2024 Performed by Bob Watson MD at [facility] Cardiac Cath/EP Lab CARDIAC CATHETERIZATION Bilateral 11/01/2024 Performed by Bob Watson MD at [facility] Cardiac Cath/EP Lab CARDIAC CATHETERIZATION N/A 11/01/2024 Performed by Bob Watson MD at [facility] Cardiac Cath/EP Lab COLONOSCOPY N/A 01/24/2025 Performed by Chadd Davis MD at [facility] ENDOSCOPY FISTULAGRAM (HISTORICAL) Left 09/15/2021 LEFT UPPER ARM HX AV FISTULA CREATION IR EMBOLIZATION 10/14/2024 IR EMBOLIZATION 10/14/2024 [facility] SPECIAL PROCEDURES IR FISTULAGRAM 08/07/2022 IR FISTULAGRAM 08/07/2022 [facility] IR IMAGING TONSILLECTOMY (HISTORICAL) Admission Diagnosis: Patient Active Problem List Diagnosis Date Noted Severe malnutrition ([facility]) ([facility]) 01/19/2025 Complication of tracheostomy ([facility]) ([facility]) 01/19/2025 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 Acute respiratory failure with hypoxia ([facility]) [J96.01] 01/08/2025 Tracheostomy care ([facility]) [Z43.0] 01/08/2025 Pulmonary embolism ([facility]) 01/08/2025 Sacral osteomyelitis ([facility]) ([facility]) 01/03/2025 Pneumonia of both lungs due to methicillin susceptible Staphylococcus aureus (MSSA) ([facility]) 01/01/2025 Leukocytosis 12/30/2024 Decubitus ulcer of sacral region, unstageable ([facility]) 12/30/2024 Peritonitis due to fungus ([facility]) 11/30/2024 History of abdominal surgery 11/30/2024 Leg DVT (deep venous thromboembolism), acute, left ([facility]) 11/30/2024 Ischemic ulcer of toe of left foot, limited to breakdown of skin ([facility]) 11/30/2024 Tracheostomy dependence ([facility]) 11/30/2024 Pleural effusion 11/28/2024 Gastric ulceration 2024 Atrial flutter, unspecified type ([facility]) 10/03/2024 RSV (acute bronchiolitis due to respiratory syncytial virus) 10/03/2024 Diverticulosis 10/08/2023 Nonrheumatic aortic valve stenosis 10/08/2023 Calcification of abdominal aorta ([facility]) 10/08/2023 Missed vaccination due to patient refusal 10/08/2023 Tobacco abuse 10/08/2023 Alcohol use disorder in remission 10/08/2023 Paroxysmal A-fib ([facility]) ([facility]) 08/18/2023 HTN (hypertension) 12/01/2022 ESRD on hemodialysis ([facility]) ([facility]) 10/26/2019 IgA nephropathy determined by biopsy of kidney 10/26/2019 BRBPR (bright red blood per rectum) 01/19/2025 Aortic stenosis 10/03/2024 Upper GI bleed 10/03/2024 S/P AVR 10/03/2024 Acute hypoxic respiratory failure ([facility]) 10/03/2024 Acute encephalopathy 10/03/2024 Pneumoperitoneum 10/03/2024 Anemia [...] of Care supervision is transferred to a [facility] Therapy Services Occupational Therapist. Goals and/or treatment plan was established in collaboration with patient/family/other representatives. Images from the original note were not included. Speech-Language Pathology SPEECH LANGUAGE PATHOLOGY [facility] Dysphagia Treatment Note Patient Name: Jun Snyder Evaluation Date: 01/31/2025 Date of : 1965 Admission Date: 01/19/2025 2:13 AM Age: 59 y.o. Room/Bed: [facility]144/[facility] A Subjective Patient alert and cooperative. Seen [...] diet and for oropharyngeal strengthening. Continue acute QUALITY IMPROVEMENT MANAGER therapy per initial plan of care and [...] Expected End: 02/02/25 Resolved: 01/25/25 Therapy Time QUALITY IMPROVEMENT MANAGER Individual Minutes Time In: 1454 Time Out: 1515 Minutes: 21 FRANKLIN Carmona Images from the original note were not included. OCCUPATIONAL THERAPY [facility] Name/MRN: Jair Snyder ([id number]) Date: 01/31/2025 Attempted OT re-eval once pt returned from dialysis, pt very fatigued. Initially responsive to OT then stops conversing and unable to remain roused. Will follow and attempt as able. RONNY Ramirez/Tameka Images from the original note were not included. [facility] - Infectious Diseases Advanced Practice [...] of use of antimicrobials. Mikala MORAN PA-C [facility] Infectious Disease Images from the original note were not included. OCCUPATIONAL THERAPY [facility] Name/MRN: Jair Snyder ([id number]) Date: 01/31/2025 Attempted OT re-eval this AM, [...] lower extremity edema Data: Labs: Recent Labs 01/29/2533601/30/25 0047 01/30/25 1224 01/31/25 [...] any questions or concerns Bree Molina APRN ASSOCIATE A-[employer] WIRE TWISTER [facility] [place] [phone] Pt seen and examined independently by me. I reviewed with DENIA-SAMIA the medical history and the findings on physical examination. I discussed the patient s diagnosis and concur with the treatment plan as documented in his note. Please call [phone] or message me through [employer] with any questions or concerns. [facility] Anticoagulation Management Service ([facility]) Inpatient Warfarin Consult HPI: Jun Snyder is a 59 y.o. male admitted on 01/19/2025 for Complication of tracheostomy ([facility]) ([facility]) [J95.00] Past Medical History: Diagnosis Date Acute renal failure (ARF) ([facility]) 10/19/2019 Anemia 12/30/2021 Calcification of abdominal aorta ([facility]) 10/08/202309/[address] abd Diverticulosis 10/08/2023 ESRD on hemodialysis ([facility]) ([facility]) 10/26/2019 Hemodialysis patient ([facility]) ([facility]) HTN (hypertension) 12/01/2022 Hypertension IgA nephropathy IgA nephropathy determined by biopsy of kidney 10/26/2019 Missed vaccination due to patient refusal 10/08/2023 Has a number of non-scientific based beliefs which interfere with his understanding and acceptance of the medical benefit of vaccination. Nonrheumatic aortic valve stenosis 10/08/2023 Paroxysmal A-fib ([facility]) ([facility]) 08/18/2023 Tobacco abuse 10/08/2023 Patient is on [...] dose accordingly 3. Will facilitate f/u at [facility] upon discharge Tiffanie Dial RPh [facility] is available daily [phone] via [employer]. If no response on [employer] Chat then please page [phone]. Hospitalist Progress Note Subjective: Admit Date: 01/19/2025 PCP: Leilani Troncoso Room#: -144/[facility]144 A Chief Complaint Patient presents with Tracheostomy Tube Change Brief Hospital course: Jun Snyder is a 59 y.o. male who who presented to [facility] 01/19 after inadvertent removal of his tracheostomy. He was transferred to [facility] ICU for surgical evaluation. On [...] HD successfully. hemodynamically stable. Transferred out to [facility] 01/27 ID following for sacral osteomyelitis, s/p wound debridement to bone on 01/02, cultures grew E faecalis and Clostridium, continue with renally dosed ampicillin sulbactam for 6 weeks course through 02/13/2025, needs tunneled line, status post IR CVC tunneled line on 01/29 Nephrology following, on dialysis QUALITY IMPROVEMENT MANAGER following PT recommends SNF Interval History: 01/31/2025-No overnight issues. Patient is seen and examined Patient is resting in his bed Dialysis today Denies any new acute complaints Labs reviewed, ESRD picture, hemoglobin 8.8, stable Case and plan discussed with patient and bedside nurse. All questions answered. Past Medical History: Past Medical History: Diagnosis Date Acute renal failure (ARF) ([facility]) 10/19/2019 Anemia 12/30/2021 Calcification of abdominal aorta ([facility]) 10/08/202309/[address] abd Diverticulosis 10/08/2023 ESRD on hemodialysis ([facility]) ([facility]) 10/26/2019 Hemodialysis patient ([facility]) ([facility]) HTN (hypertension) 12/01/2022 Hypertension IgA nephropathy IgA nephropathy determined by biopsy of kidney 10/26/2019 Missed vaccination due to patient refusal 10/08/2023 Has a number of non-scientific based beliefs which interfere with his understanding and acceptance of the medical benefit of vaccination. Nonrheumatic aortic valve stenosis 10/08/2023 Paroxysmal A-fib ([facility]) ([facility]) 08/18/2023 Tobacco abuse 10/08/2023 Adult diet Dysphagia [...] 20 mL/hr, Last Rate: 20 mL/hr (01/30/25 5509) Assessment Data: (CAT1) Reviewed 2 notes from [...] by ID -S/p tunneled central line placement -QUALITY IMPROVEMENT MANAGER follow, dysphagia diet -PT OT DC planning [...] MD Division of Hospital Medicine Inpatient Medical Services/[facility] Anticoagulation Management Service ([facility]) Inpatient Warfarin Consult HPI: Jun Snyder is a 59 y.o. male admitted on 01/19/2025 for Complication of tracheostomy ([facility]) ([facility]) [J95.00] Past Medical History: Diagnosis Date Acute renal failure (ARF) ([facility]) 10/19/2019 Anemia 12/30/2021 Calcification of abdominal aorta ([facility]) 10/08/202309/[address] abd Diverticulosis 10/08/2023 ESRD on hemodialysis ([facility]) ([facility]) 10/26/2019 Hemodialysis patient ([facility]) ([facility]) HTN (hypertension) 12/01/2022 Hypertension IgA nephropathy IgA nephropathy determined by biopsy of kidney 10/26/2019 Missed vaccination due to patient refusal 10/08/2023 Has a number of non-scientific based beliefs which interfere with his understanding and acceptance of the medical benefit of vaccination. Nonrheumatic aortic valve stenosis 10/08/2023 Paroxysmal A-fib ([facility]) ([facility]) 08/18/2023 Tobacco abuse 10/08/2023 Patient is on [...] dose accordingly 3. Will facilitate f/u at [facility] upon discharge Fatuma Odonnell RPh SAILAJA is available daily [phone] via [employer]. If no response on [employer] Chat then please page [phone]. Images from the original note were not included. OCCUPATIONAL THERAPY [facility] Name/MRN: Jair Snyder ([id number]) Date: 01/30/2025 Attempted OT services however, Pt [...] candidate for diet upgrade. Christina Limon MS, CCC/QUALITY IMPROVEMENT MANAGER Nutrition Assessment Type and Reason for Visit: [...] Severe who remains admitted after presenting to [facility] on 01/19 after inadvertent removal of his tracheostomy. He was transferred to [facility] ICU for surgical evaluation, however pt was maintaining appropriate O2 saturations on room air and the decision was made to leave the tracheostomy out. Pt transferred to [facility] later that day (01/19). Course c/b [...] MWF schedule with Nephrology following. Transferred to [facility] 01/27. ID continues following for sacral osteomyelitis and recs IV Unasyn x 6 weeks--> stop date 02/13. Course c/b anxiousness and paranoia, often refusing care and wound dressing changes. In terms of nutrition, pt was only receiving nutrition via PEG REGIONAL PROJECT MANAGER. He was NPO 01/19, Nepro @ 50mls/hr initiated 01/20 which ran until pt was made NPO/CLD for colonoscopy prep 01/23. Remained NPO 01/24, underwent MBSS 01/25 with recs for pureed/thin which remains his current diet with QUALITY IMPROVEMENT MANAGER following and recommending the same. PO intake [...] bedscale, 10/31: 200#, 11/28: 161#, 01/18: 142#) [place] Body Weight (lbs) (Calculated): 166 lbs [place] Body Weight (Kg) (Calculated): 75 kg % [place] Body Weight (Calculated): 70.5 % BMI (kg/m2) [...] soon to determine Marilu Pollock RD Contact: [phone] Images from the original note were not included. PHYSICAL THERAPY [facility] Treatment Note Name/MRN: Jair Snyder ([id number]) Date of : 1965 Age: 59 y.o. [...] Timed Code Treatment Minutes: (2FA) Jocelin Ramirez REGIONAL PROJECT MANAGER Cosigned by Betty Grady, PT at 01/30/2025 1:28 PM EDT Patient receiving other care, will attempt smoking cessation counseling at a later date. Images from the original note were not included. [facility] - Infectious Diseases Advanced Practice [...] negative 01/22 A baumannii screen: negative Previous ([facility]) 01/02- sacral wound cx- E faecalis [...] be of moderate complexity. Mikala MORAN PA-C [facility] Infectious Disease Hospitalist Progress Note Subjective: Admit Date: 01/19/2025 PCP: Leilani Troncoso Room#: 1C-144/1C-144 A Chief Complaint Patient presents with Tracheostomy Tube Change Brief Hospital course: Jun Snyder is a 59 y.o. male who who presented to [facility] 01/19 after inadvertent removal of his tracheostomy. He was transferred to [facility] ICU for surgical evaluation. On [...] HD successfully. hemodynamically stable. Transferred out to [facility] 01/27 ID following for sacral osteomyelitis, s/p wound debridement to bone on 01/02, cultures grew E faecalis and Clostridium, continue with renally dosed ampicillin sulbactam for 6 weeks course through 02/13/2025, needs tunneled line, status post IR CVC tunneled line on 01/29 Nephrology following, on dialysis QUALITY IMPROVEMENT MANAGER following PT recommends SNF Interval History: 01/30/2025-No [...] History: Diagnosis Date Acute renal failure (ARF) ([facility]) 10/19/2019 Anemia 12/30/2021 Calcification of abdominal aorta ([facility]) 10/08/202309/[address] abd Diverticulosis 10/08/2023 ESRD on hemodialysis ([facility]) ([facility]) 10/26/2019 Hemodialysis patient ([facility]) ([facility]) HTN (hypertension) 12/01/2022 Hypertension IgA nephropathy IgA [...] LABS: CBC: Recent Labs 01/28/25 0516 01/29/2533601/30/25 004 WBC 9.8 9.4 8.8 RBC 3.01* 3.06* 3.15* HGB 8.5* 8.6* 8.7* HCT 26.3* 27.3* 28.1* MCV 87.4 89.2 89.2 RDW 19.0* 19.0* 18.9* PLT 240 271 276 BMP: Recent Labs 01/28/25 0632 01/29/2533601/30/2546 NA 137 134* 135* K 3.6 3.7 3.7 CL 98 94* 99 CO2 26 23 23 BUN 14 21 10 CREATININE 3.37* 4.17* 2.56* GLUCOSE 82 80 88 CALCIUM 10.0 9.8 9.6 ANIONGAP 13 17* 13 LIVER PROFILE:No results for input(s): "AST", "ALT", "BILITOT", "ALKPHOS", "PROT" in the last 72 hours. No lab exists for component: LABALBU PT/INR: Recent Labs 01/28/2551501/29/2533601/30/25 004 PROTIME 21.9* 24.0* 24.9* INR 2.2* 2.4* [...] by ID -S/p tunneled central line placement -QUALITY IMPROVEMENT MANAGER follow, dysphagia diet -PT OT DC planning [...] MD Division of Hospital Medicine Inpatient Medical Services/[facility] Progress Note Mr. Jun Snyder is [...] status and labs. Please message me through [employer] chat with any questions or concerns. Wellington Nicole MD 01/30/2025 9:08 AM [facility] [address] [place] [address], [address] [place] [address] Office: [phone] Images from the original note were not included. Speech-Language Pathology SPEECH LANGUAGE PATHOLOGY [facility] Dysphagia Treatment Note Patient Name: Jun [...] Expected End: 02/02/25 Resolved: 01/25/25 Therapy Time QUALITY IMPROVEMENT MANAGER Individual Minutes Time In: 1438 Time Out: 1456 Minutes: 18 FRANKLIN Bailon Images from the original note were not included. [facility] - Infectious Diseases Attending Progress [...] low complexity. Radha Yee MD [facility] Progress Note Mr. Jun Snyder is [...] Nicole MD 01/29/2025 10:13 AM [facility] [address], [address] [place] [address] Office: [phone] Images from the original note were not included. Hospitalist Progress Note 01/29/2025 Subjective: Admit Date: 01/19/2025 PCP: Leilani Troncoso Room#: 1C-144/1C-144 A Brief Hospital Summary: Jun Snyder is a 59 y.o. male who who presented to [facility] 01/19 after inadvertent removal of his tracheostomy. He was transferred to [facility] ICU for surgical evaluation. On [...] HD successfully. hemodynamically stable. Transferred out to [facility] 01/27 Interval History: No overnight issues. [...] History: Diagnosis Date Acute renal failure (ARF) ([facility]) 10/19/2019 Anemia 12/30/2021 Calcification of abdominal aorta ([facility]) 10/08/202309/[address] abd Diverticulosis 10/08/2023 ESRD on hemodialysis ([facility]) ([facility]) 10/26/2019 Hemodialysis patient ([facility]) ([facility]) HTN (hypertension) 12/01/2022 Hypertension IgA nephropathy IgA nephropathy determined by biopsy of kidney 10/26/2019 Missed vaccination due to patient refusal 10/08/2023 Has a number of non-scientific based beliefs which interfere with his understanding and acceptance of the medical benefit of vaccination. Nonrheumatic aortic valve stenosis 10/08/2023 Paroxysmal A-fib ([facility]) ([facility]) 08/18/2023 Tobacco abuse 10/08/2023 LABS: CBC: Recent Labs 01/27/25 0006 01/27/257 01/28/25 0516 01/29/25 0337 WBC 10.0 -- [...] QT Interval 413 QTC Interval 515 P Zwolle 69 QRS Zwolle 93 T Wave Zwolle 87 TX Interval 148 Impression Sinus rhythm Left atrial [...] sodium chloride 0.9 % 100 mL IVPB (Add-Castleton), 3,000 mg, IntraVENous, q24h, Radha Yee MD, [...] q5 min PRN, Earlene Lozano APRN - ASSOCIATE, 5 mg at 01/25/25 1846 metoprolol tartrate (Lopressor) tablet 25 mg, 25 mg, Per G Tube, BID, Earlene Lozano APRN - ASSOCIATE, 25 mg at 01/28/25 2222 midodrine (Proamatine) [...] PRN, Noman Owens MD, 10 mg at 05/04/25 2222 prochlorperazine (Compazine) injection 5 mg, 5 mg, IntraVENous, q6h PRN, Sangeeta Reyes, , 5 mg at 01/26/25 0134 sodium chloride [...] by ID Ordered tunneled central line placement QUALITY IMPROVEMENT MANAGER follow, dysphagia diet PT OT DC planning Past Medical History: Diagnosis Date Acute renal failure (ARF) ([facility]) 10/19/2019 Anemia 12/30/2021 Calcification of abdominal aorta ([facility]) 10/08/202309/[address] abd Diverticulosis 10/08/2023 ESRD on hemodialysis ([facility]) ([facility]) 10/26/2019 Hemodialysis patient ([facility]) ([facility]) HTN (hypertension) 12/01/2022 Hypertension IgA nephropathy IgA nephropathy determined by biopsy of kidney 10/26/2019 Missed vaccination due to patient refusal 10/08/2023 Has a number of non-scientific based beliefs which interfere with his understanding and acceptance of the medical benefit of vaccination. Nonrheumatic aortic valve stenosis 10/08/2023 Paroxysmal A-fib ([facility]) ([facility]) 08/18/2023 Tobacco abuse 10/08/2023 Plan As above [...] MD Division of Hospitalist Medicine Inpatient Medical Services/[facility] Images from the original note were not included. [facility] Progress Note Jun Snyder AGE: [...] diverticulosis, IgA nephropathy, severe that presented to [facility] ED from a facility due [...] History: Diagnosis Date Acute renal failure (ARF) ([facility]) 10/19/2019 Anemia 12/30/2021 Calcification of abdominal aorta (HCC) 10/08/202309/[address] abd Diverticulosis 10/08/2023 ESRD on hemodialysis ([facility]) ([facility]) 10/26/2019 Hemodialysis patient ([facility]) ([facility]) HTN (hypertension) 12/01/2022 Hypertension IgA nephropathy IgA nephropathy determined by biopsy of kidney 10/26/2019 Missed vaccination due to patient refusal 10/08/2023 Has a number of non-scientific based beliefs which interfere with his understanding and acceptance of the medical benefit of vaccination. Nonrheumatic aortic valve stenosis 10/08/2023 Paroxysmal A-fib (CMS/HCC) ([facility]) 08/18/2023 Tobacco abuse 10/08/2023 PAST SURGICAL HISTORY Past Surgical History: Procedure Laterality Date APPENDECTOMY CARDIAC CATHETERIZATION N/A 10/09/2024 Performed by Bob Watson MD at [facility] Cardiac Cath/EP Lab CARDIAC CATHETERIZATION Bilateral 11/01/2024 Performed by Bob Watson MD at [facility] Cardiac Cath/EP Lab CARDIAC CATHETERIZATION N/A 11/01/2024 Performed by Bob Watson MD at [facility] Cardiac Cath/EP Lab COLONOSCOPY N/A 01/24/2025 Performed by Chadd Davis MD at [facility] ENDOSCOPY FISTULAGRAM (HISTORICAL) Left 09/15/2021 LEFT UPPER ARM HX AV FISTULA CREATION IR EMBOLIZATION 10/14/2024 IR EMBOLIZATION 10/14/2024 [facility] SPECIAL PROCEDURES IR FISTULAGRAM 08/07/2022 [...] Medication Sig Dispense Refill epoetin rowan-epbx (Retacrit) 33977 UNIT/ML injection Inject 0.79 mL (7,900 Units) [...] to follow Recommend to follow up at [facility] Outpatient wound care center after [...] Gill DO at 01/29/2025 4:37 PM EDT [facility] Anticoagulation Management Service ([facility]) Inpatient Warfarin Consult HPI: Jun Snyder is a 59 y.o. male admitted on 01/19/2025 for Complication of tracheostomy ([facility]) ([facility]) [J95.00] Past Medical History: Diagnosis Date Acute renal failure (ARF) ([facility]) 10/19/2019 Anemia 12/30/2021 Calcification of abdominal aorta ([facility]) 10/08/202309/[address] abd Diverticulosis 10/08/2023 ESRD on hemodialysis ([facility]) ([facility]) 10/26/2019 Hemodialysis patient ([facility]) ([facility]) HTN (hypertension) 12/01/2022 Hypertension IgA nephropathy IgA nephropathy determined by biopsy of kidney 10/26/2019 Missed vaccination due to patient refusal 10/08/2023 Has a number of non-scientific based beliefs which interfere with his understanding and acceptance of the medical benefit of vaccination. Nonrheumatic aortic valve stenosis 10/08/2023 Paroxysmal A-fib ([facility]) ([facility]) 08/18/2023 Tobacco abuse 10/08/2023 Patient is on [...] dose accordingly 3. Will facilitate f/u at [facility] upon discharge Fatuma Odonnell RPh SAILAJA is available daily [phone] via [employer]. If no response on [employer] Chat then please page [phone]. [facility] Progress Note Mr. Jun Snyder is [...] heparin, 5-30 Units/kg/hr, Last Rate: 13 Units/kg/hr (01/28/2537) sodium chloride, 20 mL/hr, Last Rate: 20 [...] status and labs. Please message me through [employer] chat with any questions or concerns. Wellington Nicole MD 01/28/2025 2:08 PM [facility] [address] [place] [address], [address] [place] [address] Office: [phone] Hospitalist Progress Note 01/28/2025 Subjective: Admit Date: 01/19/2025 PCP: Leilani Troncoso Room#: 1C-144/1C-144 A Brief Hospital Summary: Jun Snyder is a 59 y.o. male who who presented to [facility] 01/19 after inadvertent removal of his tracheostomy. He was transferred to [facility] ICU for surgical evaluation. On [...] HD successfully. hemodynamically stable. Transferred out to [facility] 01/27 Interval History: No overnight issues. [...] History: Diagnosis Date Acute renal failure (ARF) ([facility]) 10/19/2019 Anemia 12/30/2021 Calcification of abdominal aorta ([facility]) 10/08/202309/[address] abd Diverticulosis 10/08/2023 ESRD on hemodialysis ([facility]) ([facility]) 10/26/2019 Hemodialysis patient ([facility]) ([facility]) HTN (hypertension) 12/01/2022 Hypertension IgA nephropathy IgA nephropathy determined by biopsy of kidney 10/26/2019 Missed vaccination due to patient refusal 10/08/2023 Has a number of non-scientific based beliefs which interfere with his understanding and acceptance of the medical benefit of vaccination. Nonrheumatic aortic valve stenosis 10/08/2023 Paroxysmal A-fib ([facility]) ([facility]) 08/18/2023 Tobacco abuse 10/08/2023 LABS: CBC: Recent [...] QT Interval 413 QTC Interval 515 P Zwolle 69 QRS Zwolle 93 T Wave Zwolle 87 TX Interval 148 Impression Sinus rhythm Left atrial [...] sodium chloride 0.9 % 100 mL IVPB (Add-Castleton), 3,000 mg, IntraVENous, q24h, Radha Yee MD, [...] q5 min PRN, Earlene Lozano APRN - ASSOCIATE, 5 mg at 01/25/25 1846 metoprolol tartrate (Lopressor) tablet 25 mg, 25 mg, Per G Tube, BID, Earlene Lozano ELECTRICAL APPLIANCE REPAIRER - ASSOCIATE, 25 mg at 01/28/25 0848 midodrine (Proamatine) [...] for sacral wound by ID PT OT QUALITY IMPROVEMENT MANAGER follow, dysphagia diet Past Medical History: Diagnosis Date Acute renal failure (ARF) ([facility]) 10/19/2019 Anemia 12/30/2021 Calcification of abdominal aorta ([facility]) 10/08/202309/[address] abd Diverticulosis 10/08/2023 ESRD on hemodialysis ([facility]) ([facility]) 10/26/2019 Hemodialysis patient ([facility]) ([facility]) HTN (hypertension) 12/01/2022 Hypertension IgA nephropathy IgA nephropathy determined by biopsy of kidney 10/26/2019 Missed vaccination due to patient refusal 10/08/2023 Has a number of non-scientific based beliefs which interfere with his understanding and acceptance of the medical benefit of vaccination. Nonrheumatic aortic valve stenosis 10/08/2023 Paroxysmal A-fib ([facility]) ([facility]) 08/18/2023 Tobacco abuse 10/08/2023 Plan As above [...] to face encounters) : 56 minutes Kamran Lria MD Division of Hospitalist Medicine Inpatient Medical Services/[place] [facility] Anticoagulation Management Service ([facility]) Inpatient Warfarin Consult HPI: Jun Snyder is a 59 y.o. male admitted on 01/19/2025 for Complication of tracheostomy ([facility]) ([facility]) [J95.00] Past Medical History: Diagnosis Date Acute renal failure (ARF) ([facility]) 10/19/2019 Anemia 12/30/2021 Calcification of abdominal aorta ([facility]) 10/08/202309/[address] abd Diverticulosis 10/08/2023 ESRD on hemodialysis ([facility]) ([facility]) 10/26/2019 Hemodialysis patient ([facility]) ([facility]) HTN (hypertension) 12/01/2022 Hypertension IgA nephropathy IgA nephropathy determined by biopsy of kidney 10/26/2019 Missed vaccination due to patient refusal 10/08/2023 Has a number of non-scientific based beliefs which interfere with his understanding and acceptance of the medical benefit of vaccination. Nonrheumatic aortic valve stenosis 10/08/2023 Paroxysmal A-fib ([facility]) ([facility]) 08/18/2023 Tobacco abuse 10/08/2023 Patient is on [...] dose accordingly 3. Will facilitate f/u at [facility] upon discharge Vu Guido PharmD [facility] is available daily [phone] via [employer]. If no response on [employer] Chat then please page [phone]. [facility] Anticoagulation Management Service ([facility]) Inpatient Warfarin Consult HPI: Jun Snyder is a 59 y.o. male admitted on 01/19/2025 for Complication of tracheostomy ([facility]) ([facility]) [J95.00] Past Medical History: Diagnosis Date Acute renal failure (ARF) ([facility]) 10/19/2019 Anemia 12/30/2021 Calcification of abdominal aorta ([facility]) 10/08/202309/[address] abd Diverticulosis 10/08/2023 ESRD on hemodialysis ([facility]) ([facility]) 10/26/2019 Hemodialysis patient ([facility]) ([facility]) HTN (hypertension) 12/01/2022 Hypertension IgA nephropathy IgA nephropathy determined by biopsy of kidney 10/26/2019 Missed vaccination due to patient refusal 10/08/2023 Has a number of non-scientific based beliefs which interfere with his understanding and acceptance of the medical benefit of vaccination. Nonrheumatic aortic valve stenosis 10/08/2023 Paroxysmal A-fib ([facility]) ([facility]) 08/18/2023 Tobacco abuse 10/08/2023 Patient is on warfarin for Afib, mechanical AVR and has a goal INR 2.0 - 3.0. Warfarin is currently managed by facility, has yet to be seen by [facility]. Pt's home dose of warfarin is not yet established, managed by facility. S/sx of bleeding= concern for GIB, anemia, Hemoglobin 9.0 s/p PRBC administration. Interacting medications= unasyn,heparin gtt. Vitamin K 2.5 mg PO administered 4/28. Labs: Recent Labs 01/25/25 0251 01/25/25 0953 [...] dose accordingly 3. Will facilitate f/u at [facility] upon discharge Vu Guido PharmD [facility] is available daily [phone] via [employer]. If no response on [employer] Chat then please page [phone]. [facility] Respiratory Care Department Progress Note As part [...] the care of this patient, [facility] Progress Note Mr. Jun Snyder is [...] from last 7 days Lab Units 01/27/25 00001/26/25205201/26/25 0901/26/2524701/25/25 0953 01/25/25 0251 WBC AUTO 10*3/uL 10.0 [...] status and labs. Please message me through [employer] chat with any questions or concerns. Wellington Bonnie, MD 01/27/2025 7:11 AM [facility] [address], [address] [place] [address] Office: [phone] ICU Progress Note Name: Jun Snyder : 1965(59 y.o.) Date: 01/27/25 Team: MICU Attending: DARRYN HIGGINS Subjective: Hospital Summary: Jun Snyder is a 59 y.o. male who who presented to [facility] 01/19 after inadvertent removal of his tracheostomy. He was transferred to [facility] ICU for surgical evaluation. On [...] Normal [] Scar/Lesion/Mass Inspection of teeth/lips/gums Dentition: [x][place] Teeth []Dentures Lips/Gums: [x]Intact []Lesion Present Mucosa: [x][address] []Moist []Dry Neck: External Appearance Overall Appearance: [...] displayed. ABGs: No results for input(s): "PHART", "ARX5MMW", "PO2ART", "YQF0YLE", "SO2ART", "A6VYMKFQ" in the last 72 hours. Lactic Acid: [...] Plan: Principal Problem: Complication of tracheostomy (CMS/HCC) ([facility]) Active Problems: Severe malnutrition (CMS/HCC) ([facility]) BRBPR (bright red blood per rectum) GIB [...] H/H and PT/INR q12 - Diet per QUALITY IMPROVEMENT MANAGER recs Appreciate Recs: Pureed solids and Thin [...] and warfarin Disposition: Stable for Transfer to [facility] Cosigned by Darryn Higgins MD at [...] PT/OT - Remains stable for transfer to [facility]. Code Status: Full Code Disposition: ok for [facility] Time spent preparing to see the patient, obtaining/reviewing separately obtained history, completing an appropriate medical examination of the patient, ordering medications/tests/procedures, documenting clinical information on the EMR, and/or coordinating care is a subsequent visit: 35 minutes (Level II). Darryn Higgins MD Pulmonary and Critical Care Medicine Attending Pager #[phone] Images from the original note were not included. PHYSICAL THERAPY [facility] Name/MRN: Jair Snyder ([id number]) Date: 01/26/2025 Attempt Note Pt on iHD. Will re-attempt as able. Chantal Rossi PT [facility] Progress Note Mr. Jun Snyder is [...] concerns. Wellington Nicole MD 01/26/2025 1:55 PM [facility] [address], [address] [place] [address] Office: [phone] Speech-Language Pathology Pt is a hold at this time, as he is receiving dialysis. Will re-attempt next date as schedule permits. Treva Mccallum MS. CCC-QUALITY IMPROVEMENT MANAGER ICU Transfer Checklist Hospital course: 59 y.o. male PMH trach s/p removal, peg, HTN, afib, ESRD on TTS HD, aortic stenosis s/p mechanical valve who presented to [facility] 01/19 after inadvertent removal of his tracheostomy. Transferred to [facility] ICU for surgical evaluation. On [...] convert to PO if able) None Anticipated Phelps Medications (ICU initiated) or Dose Changes and Indication No Permanently Discontinued Home Medications and Reason for medication contraindication No Payne Catheter (please remove if able. Note: place DC order) No Central Line (please remove if able. Note: place DC order) No Transfer Discussed with: [place]. Russell, [facility] If additional questions for ICU team within 24 hours of ICU transfer, page non profit job titles ICU resident for clarifications. [facility] Anticoagulation Management Service ([facility]IL[facility]) Inpatient Warfarin Consult HPI: Jun Snyder is a 59 y.o. male admitted on 01/19/2025 for Complication of tracheostomy ([facility]) ([facility]) [J95.00] Past Medical History: Diagnosis Date Acute renal failure (ARF) ([facility]) 10/19/2019 Anemia 12/30/2021 Calcification of abdominal aorta ([facility]) 10/08/202309/[address] abd Diverticulosis 10/08/2023 ESRD on hemodialysis ([facility]) ([facility]) 10/26/2019 Hemodialysis patient ([facility]) ([facility]) HTN (hypertension) 12/01/2022 Hypertension IgA nephropathy IgA nephropathy determined by biopsy of kidney 10/26/2019 Missed vaccination due to patient refusal 10/08/2023 Has a number of non-scientific based beliefs which interfere with his understanding and acceptance of the medical benefit of vaccination. Nonrheumatic aortic valve stenosis 10/08/2023 Paroxysmal A-fib ([facility]) ([facility]) 08/18/2023 Tobacco abuse 10/08/2023 Patient is on [...] dose accordingly 3. Will facilitate f/u at [facility] upon discharge Adalberto Deleon PharmD [facility] is available daily [phone] via [employer]. If no response on [employer] Chat then please page [phone]. Images from the original note were not included. [facility] - Infectious [...] 024 K 5.1 01/26/2025247 CL 100 01/26/2025 024 CO2 20 (L) 01/26/2025 024 BUN 19 01/26/2025 0248 CREATININE 3.37 (H) 01/26/2025247 CREATININE 9.99 (H) [...] from the original note were not included. [facility] Progress Note Jun Snyder AGE: [...] diverticulosis, IgA nephropathy, severe that presented to [facility] ED from a facility due to trach dislodgement. Wound Care consulted for Pressure Injury sacrum and Ischemic ulcers to left toes" Patient resting in [place] with floor RN present at bedside. Wound vac changed at time of visit with patient tolerating well. Denies any needs. PAST MEDICAL HISTORY Past Medical History: Diagnosis Date Acute renal failure (ARF) ([facility]) 10/19/2019 Anemia 12/30/2021 Calcification of abdominal aorta ([facility]) 10/08/202309/[address] abd Diverticulosis 10/08/2023 ESRD on hemodialysis ([facility]) ([facility]) 10/26/2019 Hemodialysis patient ([facility]) ([facility]) HTN (hypertension) 12/01/2022 Hypertension IgA nephropathy IgA nephropathy determined by biopsy of kidney 10/26/2019 Missed vaccination due to patient refusal 10/08/2023 Has a number of non-scientific based beliefs which interfere with his understanding and acceptance of the medical benefit of vaccination. Nonrheumatic aortic valve stenosis 10/08/2023 Paroxysmal A-fib ([facility]) ([facility]) 08/18/2023 Tobacco abuse 10/08/2023 PAST SURGICAL HISTORY Past Surgical History: Procedure Laterality Date APPENDECTOMY CARDIAC CATHETERIZATION N/A 10/09/2024 Performed by Bob Watson MD at [facility] Cardiac Cath/EP Lab CARDIAC CATHETERIZATION Bilateral 11/01/2024 Performed by Bob Watson MD at [facility] Cardiac Cath/EP Lab CARDIAC CATHETERIZATION N/A 11/01/2024 Performed by Bob Watson MD at [facility] Cardiac Cath/EP Lab COLONOSCOPY N/A 01/24/2025 Performed by Chadd Davis MD at [facility] ENDOSCOPY FISTULAGRAM (HISTORICAL) Left 09/15/2021 LEFT UPPER ARM HX AV FISTULA CREATION IR EMBOLIZATION 10/14/2024 IR EMBOLIZATION 10/14/2024 [facility] SPECIAL PROCEDURES IR FISTULAGRAM 08/07/2022 [...] Medication Sig Dispense Refill epoetin rowan-epbx (Retacrit) 64459 UNIT/ML injection Inject 0.79 mL (7,900 Units) [...] apply Betadine and allow to dry, leave LATEX THREAD MACHINE OPERATOR daily and PRN -Recommend PVRs for circulation check Nutritional support Wound Care to follow Recommend to follow up at [facility] Outpatient wound care center after [...] 59 y.o. male who who presented to [facility] 01/19 after inadvertent removal of his tracheostomy. He was transferred to [facility] ICU for surgical evaluation. On [...] Normal [] Scar/Lesion/Mass Inspection of teeth/lips/gums Dentition: [x]Sokaogon Teeth []Dentures Lips/Gums: [x]Intact []Lesion Present Mucosa: [x]Green Lane []Moist []Dry Neck: External Appearance Overall Appearance: [...] displayed. ABGs: No results for input(s): "PHART", "GCB3IYA", "PO2ART", "YWF0SOB", "SO2ART", "D5PGZTIV" in the last 72 hours. Lactic Acid: [...] and Plan: Principal Problem: Complication of tracheostomy (CMS/[facility]) ([facility]) Active Problems: Severe malnutrition (CMS/HCC) ([facility]) BRBPR (bright red blood per rectum) GIB [...] peripheral blood smear pending - Diet per QUALITY IMPROVEMENT MANAGER recs - continue q12 H/H and PT/INR [...] apply Betadine and allow to dry, leave LATEX THREAD MACHINE OPERATOR daily and PRN - PVRs for [...] on heparin and warfarin Disposition: Transfer to [facility] Cosigned by Darryn Higgins MD at [...] hemoglobin stable today. Stable for transfer to [facility]. Code Status: Full Code Disposition: Transfer to [facility] Time spent preparing to see the patient, obtaining/reviewing separately obtained history, completing an appropriate medical examination of the patient, ordering medications/tests/procedures, documenting clinical information on the EMR, and/or coordinating care is a subsequent visit: 35 minutes (Level II). Darryn Higgins MD Pulmonary and Critical Care Medicine Attending Pager #[phone] Images from the original note were not included. [facility] - Infectious Diseases Attending Progress [...] stenosis s/p mechanical valve who presented to [facility] 01/19 after inadvertent removal of his tracheostomy. Transferred to [facility] ICU for surgical evaluation. On [...] convert to PO if able) None Anticipated Phelps Medications (ICU initiated) or Dose Changes and Indication No Permanently Discontinued Home Medications and Reason for medication contraindication No Payne Catheter (please remove if able. Note: place DC order) No Central Line (please remove if able. Note: place DC order) No Transfer Discussed with: Dr. Russell [facility] If additional questions for ICU team within 24 hours of ICU transfer, page non profit job titles ICU resident for clarifications. Images from the original note were not included. Speech-Language Pathology SPEECH LANGUAGE PATHOLOGY [facility] Modified Barium Swallow Study Patient Name: [...] swallow). Pt would benefit from skilled acute QUALITY IMPROVEMENT MANAGER services to ensure diet tolerance, train swallow [...] History: Diagnosis Date Acute renal failure (ARF) ([facility]) 10/19/2019 Anemia 12/30/2021 Calcification of abdominal aorta ([facility]) 10/08/202309/[address] abd Diverticulosis 10/08/2023 ESRD on hemodialysis ([facility]) ([facility]) 10/26/2019 Hemodialysis patient ([facility]) ([facility]) HTN (hypertension) 12/01/2022 Hypertension IgA nephropathy IgA nephropathy determined by biopsy of kidney 10/26/2019 Missed vaccination due to patient refusal 10/08/2023 Has a number of non-scientific based beliefs which interfere with his understanding and acceptance of the medical benefit of vaccination. Nonrheumatic aortic valve stenosis 10/08/2023 Paroxysmal A-fib ([facility]) ([facility]) 08/18/2023 Tobacco abuse 10/08/2023 Past Surgical History: Past Surgical History: Procedure Laterality Date APPENDECTOMY CARDIAC CATHETERIZATION N/A 10/09/2024 Performed by Bob Watson MD at [facility] Cardiac Cath/EP Lab CARDIAC CATHETERIZATION Bilateral 11/01/2024 Performed by Bob Watson MD at [facility] Cardiac Cath/EP Lab CARDIAC CATHETERIZATION N/A 11/01/2024 Performed by Bob Watson MD at [facility] Cardiac Cath/EP Lab COLONOSCOPY N/A 01/24/2025 Performed by Chadd Davis MD at [facility] ENDOSCOPY FISTULAGRAM (HISTORICAL) Left 09/15/2021 LEFT UPPER ARM HX AV FISTULA CREATION IR EMBOLIZATION 10/14/2024 IR EMBOLIZATION 10/14/2024 [facility] SPECIAL PROCEDURES IR FISTULAGRAM 08/07/2022 IR FISTULAGRAM 08/07/2022 [facility] IR IMAGING TONSILLECTOMY (HISTORICAL) Admission Diagnosis: Patient Active Problem List Diagnosis Date Noted Severe malnutrition ([facility]) ([facility]) 01/19/2025 Complication of tracheostomy ([facility]) ([facility]) 01/19/2025 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 Acute respiratory failure with hypoxia ([facility]) [J96.01] 01/08/2025 Tracheostomy care ([facility]) [Z43.0] 01/08/2025 Pulmonary embolism ([facility]) 01/08/2025 Sacral osteomyelitis ([facility]) ([facility]) 01/03/2025 Pneumonia of both lungs due to methicillin susceptible Staphylococcus aureus (MSSA) ([facility]) 01/01/2025 Leukocytosis 12/30/2024 Decubitus ulcer of sacral region, unstageable ([facility]) 12/30/2024 Peritonitis due to fungus ([facility]) 11/30/2024 History of abdominal surgery 11/30/2024 Leg DVT (deep venous thromboembolism), acute, left ([facility]) 11/30/2024 Ischemic ulcer of toe of left foot, limited to breakdown of skin ([facility]) 11/30/2024 Tracheostomy dependence ([facility]) 11/30/2024 Pleural effusion 11/28/2024 Gastric ulceration 2024 Atrial flutter, unspecified type ([facility]) 10/03/2024 RSV (acute bronchiolitis due to respiratory syncytial virus) 10/03/2024 Diverticulosis 10/08/2023 Nonrheumatic aortic valve stenosis 10/08/2023 Calcification of abdominal aorta ([facility]) 10/08/2023 Missed vaccination due to patient refusal 10/08/2023 Tobacco abuse 10/08/2023 Alcohol use disorder in remission 10/08/2023 Paroxysmal A-fib ([facility]) ([facility]) 08/18/2023 HTN (hypertension) 12/01/2022 ESRD on hemodialysis ([facility]) ([facility]) 10/26/2019 IgA nephropathy determined by biopsy of kidney 10/26/2019 BRBPR (bright red blood per rectum) 01/19/2025 Aortic stenosis 10/03/2024 Upper GI bleed 10/03/2024 S/P AVR 10/03/2024 Acute hypoxic respiratory failure ([facility]) 10/03/2024 Acute encephalopathy 10/03/2024 Pneumoperitoneum 10/03/2024 Anemia 12/30/2021 Pain: Pt denies any current pain. Reason for current admission: Patient is a 59 yo male with a PMH of Trach and peg, HTN, paroxysmal a-fib, R occipital ICH, Tobacco abuse, ARF - dialysis (TTS; LUE AVF), diverticulosis, IgA nephropathy, severe that presented to [facility] ED from a facility due to trach dislodgement. Per patient, was trying to disconnect his vent to transfer to another room but accidentally pulled out his tracheostomy. This event happened approximately 45 minutes before ED arrival. ED attempted to place tracheostomy tube back but were unsuccessful. Decision was made to transfer patient to [facility] ICU for further airway management [...] Expected End: 02/02/25 Resolved: 01/25/25 Therapy Time QUALITY IMPROVEMENT MANAGER Individual Minutes Time In: 1145 Time Out: 1205 Minutes: 20 Christina Nunez MA, CCC/QUALITY IMPROVEMENT MANAGER [facility] Anticoagulation Management Service (SAILAJA) Inpatient Warfarin Consult HPI: Jun Snyder is a 59 y.o. male admitted on 01/19/2025 for Complication of tracheostomy ([facility]) ([facility]) [J95.00] Past Medical History: Diagnosis Date Acute renal failure (ARF) ([facility]) 10/19/2019 Anemia 12/30/2021 Calcification of abdominal aorta ([facility]) 10/08/202309/[address] abd Diverticulosis 10/08/2023 ESRD on hemodialysis ([facility]) ([facility]) 10/26/2019 Hemodialysis patient ([facility]) ([facility]) HTN (hypertension) 12/01/2022 Hypertension IgA nephropathy IgA nephropathy determined by biopsy of kidney 10/26/2019 Missed vaccination due to patient refusal 10/08/2023 Has a number of non-scientific based beliefs which interfere with his understanding and acceptance of the medical benefit of vaccination. Nonrheumatic aortic valve stenosis 10/08/2023 Paroxysmal A-fib ([facility]) ([facility]) 08/18/2023 Tobacco abuse 10/08/2023 Patient is on [...] dose accordingly 3. Will facilitate f/u at [facility] upon discharge Adalberto Deleon PharmD, PharmD [facility] is available daily [phone] via [employer]. If no response on [employer] Chat then please page [phone]. [facility] Progress Note Mr. Jun Snyder is [...] from last 7 days Lab Units 01/25/25 02501/23/25 0430 01/22/25 0419 SODIUM mmol/L 138 < [...] Nicole MD 01/25/2025 11:44 AM [facility] [address] [place] [address], [address] [place] [address] Office: [phone] Images from the original note were not included. Palliative Care Progress note Chief Complaint: Jun Snyder is a 59 y.o. male with chief complaint of dislodged tracheostomy. Palliative Care is signing off, please re-consult if needed. 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 They currently have no uncontrolled symptoms [...] Palliative Care IDT members involved: Palliative Care Black Powder Glazing Operator Discussed the plan of care with the [...] dislodging his tracheostomy, and was brought to [facility] ED for further care. Palliative [...] much better. [facility]. Discussed trying to get palliative care to [...] status: SNF Work history: unknown status: unknown Lutheran annette: Non-Church ROS: See palliative care ROS/ESAS below; All other systems were reviewed and are negative. Herndon Symptom Assessment Score Herndon Score Pain Score (if non-verbal, add .FLACC [...] 59 y.o. male who who presented to [facility] 01/19 after inadvertent removal of his tracheostomy. He was transferred to [facility] ICU for surgical evaluation. On [...] 164) Objective: Last Vitals: BP MAP 124/74 (01/25/25428) 85 (01/25/250) Arterial BP MAP Temp 37.1 C (98.7 [...] Normal [] Scar/Lesion/Mass Inspection of teeth/lips/gums Dentition: [x]Sokaogon Teeth []Dentures Lips/Gums: [x]Intact []Lesion Present Mucosa: [x]Green Lane []Moist []Dry Neck: External Appearance Overall Appearance: [...] 24 hours- BMP: Recent Labs 01/23/25 04301/24/25 04201/24/25 1217 01/25/25 0251 NA 140 139 138 [...] 19.2* ABGs: No results for input(s): "PHART", "FIF6MPB", "PO2ART", "EDN4LPM", "SO2ART", "O8MRVUSO" in the last 72 hours. Lactic Acid: [...] above. Report Dictated on Electronically Signed By: Kraly Parker MD Electronically Signed Date/Time: 01/20/2025 7:02 [...] Plan: Principal Problem: Complication of tracheostomy (CMS/HCC) ([facility]) Active Problems: Severe malnutrition (CMS/HCC) ([facility]) BRBPR (bright red blood per rectum) GIB [...] peripheral blood smear pending - Diet per QUALITY IMPROVEMENT MANAGER recs - continue q12 H/H and PT/INR [...] Prophylaxis: SCDs warfarin held Disposition: Transfer to [facility] Cosigned by Darryn Higgins MD at [...] and appropriate. If stable can transfer to [facility]. Code Status: Full Code Disposition: Transfer to [facility] Time spent preparing to see the patient, obtaining/reviewing separately obtained history, completing an appropriate medical examination of the patient, ordering medications/tests/procedures, documenting clinical information on the EMR, and/or coordinating care is a subsequent visit: 35 minutes (Level II). Darryn Higgins MD Pulmonary and Critical Care Medicine Attending Pager #[phone] Images from the original note were not included. [facility] - Infectious Diseases Advanced Practice [...] -- -- 98 19 100 % -- 04/30/25 1309 -- -- -- 97 18 100 [...] 01/22 A baumannii screen: in process Previous ([facility]) 01/02- sacral wound cx- E faecalis (Amp-S), skin ila, Clostridium clostrioforme 01/01- blood cx- 2/2 NG 12/30- blood cx- 2/2 NGTD 12/30- sputum cx- MSSA, resp ila 12/25- blood cx- 2/2 negative 12/14- sputum cx- MSSA, resp ila 12/14- MRSA pcr- MSSA 12/11- sputum cx- MSSA, resp ila Previous ([facility]) 11/28- L pleural fluid- negative [...] be of moderate complexity. Mikala MORAN PA-C [facility] Infectious Disease [facility] Progress Note Mr. Jun Snyder is [...] concerns. Wellington Nicole MD 01/24/2025 3:17 PM [facility] [address] [place] [address], [address] [place] [address] Office: [phone] Nutrition Assessment Type and Reason for Visit: [...] at [facility]. Noted QUALITY IMPROVEMENT MANAGER is following- trach remains out and pt stable without it. QUALITY IMPROVEMENT MANAGER most recently recommended MBSS completion- will follow and monitor QUALITY IMPROVEMENT MANAGER recs and need for adjustment in EN [...] the ICU after he initially presented to [facility] ED on 01/19/25 due to inadvertent removal of his tracheostomy, pt was transferred to [facility] ICU for surgical evaluation, on [...] and also left toes 1-4 arterial ulcers, QUALITY IMPROVEMENT MANAGER remains following- yesterday noted recs to continue [...] able to be re-initiated as well as QUALITY IMPROVEMENT MANAGER recs for possible diet advancement s/p MBSS. [...] bedscale, 10/31: 200#, 11/28: 161#, 01/18: 142#) [place] Body Weight (lbs) (Calculated): 166 lbs [place] Body Weight (Kg) (Calculated): 75 kg % [place] Body Weight (Calculated): 78.2 % BMI (kg/m2) [...] determine [address] Contact: available via [employer] or *[phone] [facility] Anticoagulation Management Service ([facility]) Inpatient Warfarin Consult HPI: Jun Snyder is a 59 y.o. male admitted on 01/19/2025 for Complication of tracheostomy ([facility]) ([facility]) [J95.00] Past Medical History: Diagnosis Date Acute renal failure (ARF) ([facility]) 10/19/2019 Anemia 12/30/2021 Calcification of abdominal aorta ([facility]) 10/08/202309/[address] abd Diverticulosis 10/08/2023 ESRD on hemodialysis ([facility]) [facility] [place] 10/26/2019 Hemodialysis patient ([facility]) ([facility]) HTN (hypertension) 12/01/2022 Hypertension IgA nephropathy IgA nephropathy determined by biopsy of kidney 10/26/2019 Missed vaccination due to patient refusal 10/08/2023 Has a number of non-scientific based beliefs which interfere with his understanding and acceptance of the medical benefit of vaccination. Nonrheumatic aortic valve stenosis 10/08/2023 Paroxysmal A-fib ([facility]) ([facility]) 08/18/2023 Tobacco abuse 10/08/2023 Patient is on [...] dose accordingly 3. Will facilitate f/u at [facility] upon discharge Fatuma Odonnell RPh, PharmD SAILAJA is available daily [phone] via [employer]. If no response on [employer] Chat then please page [phone]. ICU Progress Note Name: Jun Snyder : 1965(59 y.o.) Date: 01/24/25 Team: MICU Attending: Dr. Higgins Subjective: Hospital Summary: Mr Snyder is a 59 year old male who presented to [facility] 01/19 after inadvertent removal of his tracheostomy. He was transferred to [facility] ICU for surgical evaluation. On [...] Pulse 80 (01/24/25 0000) Resp (!) 10 (01/24/25) SpO2 98 % [...] Normal [] Scar/Lesion/Mass Inspection of teeth/lips/gums Dentition: []Sokaogon Teeth []Dentures Lips/Gums: []Intact []Lesion Present Mucosa: [x]Green Lane []Moist [x]Dry Neck: External Appearance Overall Appearance: [...] last 24 hours- BMP: Recent Labs 01/22/2541801/23/25 04301/24/25 042 NA 132* 140 139 K 4.4 3.4* 4.0 CL 94* 102 98 CO2 * BUN 53* 22 27* CREATININE 4.18* 2.34* [...] 19.4* ABGs: No results for input(s): "PHART", "REG6WKF", "PO2ART", "ZYI1WFV", "SO2ART", "D0EEPXNP" in the last 72 hours. 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 Darryn Higgins MD Pulmonary and Critical Care Medicine Attending Pager #[phone] [facility] Progress Note Mr. Jun Snyder is [...] Nicole MD 01/23/2025 5:03 PM [facility] [address], [address] [place] [address] Office: [phone] Images from the original note were not included. Speech-Language Pathology SPEECH LANGUAGE PATHOLOGY [facility] Dysphagia Treatment Note Patient Name: Jun [...] Start: 01/19/25 Expected End: 02/02/25 Therapy Time QUALITY IMPROVEMENT MANAGER Individual Minutes Time In: 1315 Time Out: 1330 Minutes: 15 FRANKLIN Singh Images from the original note were not included. [facility] - Infectious Diseases Advanced Practice [...] 12/11- sputum cx- MSSA, resp ila Previous ([facility]) 11/28- L pleural fluid- negative [...] be of moderate complexity. Mikala MORAN PA-C [facility] Infectious Disease Images from the original note [...] Active Problem List Diagnosis Anemia Paroxysmal A-fib ([facility] [place]) ([facility]) HTN (hypertension) ESRD on hemodialysis ([facility] [place]) ([facility] [place]) IgA nephropathy determined by biopsy of kidney Diverticulosis Nonrheumatic aortic valve stenosis Calcification of abdominal aorta ([facility] [place]) Missed vaccination due to patient refusal Tobacco abuse Alcohol use disorder in remission Atrial flutter, unspecified type ([facility]) RSV (acute bronchiolitis due to respiratory syncytial virus) Aortic stenosis Upper GI bleed S/P AVR Acute hypoxic respiratory failure ([facility]) Acute encephalopathy Pneumoperitoneum Gastric ulceration Severe malnutrition ([facility] [place]) ([facility]) Pleural effusion Peritonitis due to fungus ([facility] [place]) History of abdominal surgery Leg DVT (deep venous thromboembolism), acute, left (HCC) Ischemic ulcer of toe of left foot, limited to breakdown of skin ([facility]) Tracheostomy dependence ([facility] [place]) Leukocytosis Decubitus ulcer of sacral region, unstageable ([facility]) Pneumonia of both lungs due to methicillin susceptible Staphylococcus aureus (MSSA) ([facility] [place]) Sacral osteomyelitis ([facility]) ([facility]) Acute respiratory failure with hypoxia ([facility]) [J96.01] Tracheostomy care ([facility]) [Z43.0] Pulmonary embolism ([facility] [place]) 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 I have reviewed and agree with the care plan as documented above by my ELECTRICAL APPLIANCE REPAIRER/PAMitzyC. I personally discussed the review of systems [...] []SW/TCC []Other Total Care Time (combined between ELECTRICAL APPLIANCE REPAIRER/PA-C and myself) throughout the day today was >= 35 minutes (including chart/data review/analysis, care coordination, and zrop-ke-amju encounter), and was spent discussing/counseling the patient/family regarding the care plan for this patient. I examined the patient independently. I reviewed relevant data myself and may have also done so in the context of team rounds. A full chart review was performed. Ivett Buckley MD Division of Trauma Department of Surgery [facility] Images from the original note were [...] sodium chloride 0.9 % 100 mL IVPB (Add-Castleton), 3,000 mg, IntraVENous, q12h, Steve Lassiter MD, [...] Coumadin, last dose suspected 01/18/[address] [facility] Stage V sacral wound Necrotic left toes [...] +scattered ecchymoses Neuro: nonfocal Labs/Studies reviewed in [facility] ASSESSMENT/PLAN: GIB - Hematochezia Chronic Anticoagulation -h/o [...] 59 year old male who presented to [facility] 01/19 after inadvertent removal of his tracheostomy. He was transferred to [facility] ICU for surgical evaluation. On [...] - 01/23 0659 In: 1491 [I.V.:758] Out: 2095 Ventilator: Oxygen Delivery: O2 Flow Rate (L/min): [...] Normal [] Scar/Lesion/Mass Inspection of teeth/lips/gums Dentition: []Sokaogon Teeth []Dentures Lips/Gums: []Intact []Lesion Present Mucosa: []Green Lane []Moist []Dry Neck: External Appearance Overall Appearance: [...] 18.5* ABGs: No results for input(s): "PHART", "QAN8FSY", "PO2ART", "LQA1PUC", "SO2ART", "A4DWCEYL" in the last 72 hours. Lactic Acid: [...] Plan: Principal Problem: Complication of tracheostomy (CMS/HCC) ([facility]) Active Problems: Severe malnutrition (CMS/HCC) ([facility] [place]) GI Bleed, worsened by Warfarin Non-bleeding duodenal [...] setting of GI bleed Disposition: Transfer to [facility] Cosigned by Darryn Higgins MD at [...] Pulmonary and Critical Care Medicine Attending Pager #[phone] [facility] Respiratory Care Department Progress Note As part [...] Respiratory in the care of this patient, [facility] Progress Note Mr. Jun Snyder is [...] status and labs. Please message me through [employer] chat with any questions or concerns. Wellington Nicole MD 01/22/2025 3:30 PM [facility] [address], [address] [place] [address] Office: [phone] Images from the original note were not included. [facility] - Infectious Diseases Advanced Practice [...] Behavior: Behavior normal. Labs: Recent Labs 01/20/25 0501/21/2524201/22/25418 NA 135* 135* 132* K 4.8 4.3 [...] in this interval not displayed. Micro: Previous (SS) 01/02- sacral wound cx- [...] be of moderate complexity. Mikala MORAN PA-C [facility] Infectious Disease Speech-Language Pathology Spoke with the RN. Patient remains decanulated and doing well on Room Air. Patient is currently NPO for GI. Will defer dysphagia plan of care until patient is cleared to resume TF or a PO diet. Christina L. Stranathan MS, CCC/QUALITY IMPROVEMENT MANAGER Images from the original note were not [...] sodium chloride 0.9 % 100 mL IVPB (Add-Castleton), 3,000 mg, IntraVENous, q12h, Steve Lassiter MD, [...] q8h, Setve Lassiter MD, 3 mL at 01/21/25 2307 [...] Coumadin, last dose suspected 01/18/[address] [facility] Stage V sacral wound Necrotic left toes [...] Intake/Output Summary (Last 24 hours) at 01/22/2025 0727 Last data filed at 01/22/2025 0537 Gross [...] Active Problem List Diagnosis Anemia Paroxysmal A-fib ([facility]/HCC) (HCC) HTN (hypertension) ESRD on hemodialysis ([facility] [place]) ([facility] [place]) IgA nephropathy determined by biopsy of kidney Diverticulosis Nonrheumatic aortic valve stenosis Calcification of abdominal aorta ([facility] [place]) Missed vaccination due to patient refusal Tobacco [...] Staphylococcus aureus (MSSA) (HCC) Sacral osteomyelitis (CMS/HCC) ([facility]) Acute respiratory failure with hypoxia ([facility] [place]) [J96.01] Tracheostomy care ([facility] [place]) [Z43.0] Pulmonary embolism ([facility]) 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 Complication of tracheostomy (CMS/HCC) ([facility] [place]) I personally supervised the resident in the [...] MD Division of Trauma Department of Surgery [facility] ICU Progress Note Name: Jun Snyder : 1965(59 y.o.) Date: 01/22/25 Team: MICU Attending: Dr. Higgins Subjective: Hospital Summary: Mr Snyder is a 59 year old male who presented to [facility] 01/19 after inadvertent removal of his tracheostomy. He was transferred to [facility] ICU for surgical evaluation. On [...] Normal [] Scar/Lesion/Mass Inspection of teeth/lips/gums Dentition: []Sokaogon Teeth []Dentures Lips/Gums: []Intact []Lesion Present Mucosa: [x]Green Lane []Moist [x]Dry Neck: External Appearance Overall Appearance: [...] 18.6* ABGs: No results for input(s): "PHART", "HQE1AWI", "PO2ART", "WEG4GKY", "SO2ART", "N4MOZJAS" in the last 72 hours. Lactic Acid: [...] - repeat PT/INR s/p vitamin K - Ozë panel pending Stage V sacral wound Necrotic [...] Pulmonary and Critical Care Medicine Attending Pager #[phone] [facility] Progress Note SUBJECTIVE: Jun Snyder [...] sodium chloride 0.9 % 100 mL IVPB (Add-Castleton), 3,000 mg, IntraVENous, q12h, Steve Lassiter MD, [...] 25 mg, Per G Tube, BID, Steve Lsasiter MD, 25 mg at 01/19/25 0916 midodrine [...] Problem List Diagnosis Date Noted Severe malnutrition ([facility] [place]) ([facility]) 01/19/2025 Complication of tracheostomy ([facility] [place]) ([facility]) 01/19/2025 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 Acute respiratory failure with hypoxia ([facility] [place]) [J96.01] 01/08/2025 Tracheostomy care ([facility] [place]) [Z43.0] 01/08/2025 Pulmonary embolism ([facility]) 01/08/2025 Sacral osteomyelitis ([facility] [place]) ([facility] [place]) 01/03/2025 Pneumonia of both lungs due to methicillin susceptible Staphylococcus aureus (MSSA) ([facility] [place]) 01/01/2025 Leukocytosis 12/30/2024 Decubitus ulcer of sacral region, unstageable ([facility] [place]) 12/30/2024 Peritonitis due to fungus ([facility] [place]) 11/30/2024 History of abdominal surgery 11/30/2024 Leg DVT (deep venous thromboembolism), acute, left ([facility] [place]) 11/30/2024 Ischemic ulcer of toe of left foot, limited to breakdown of skin ([facility] [place]) 11/30/2024 Tracheostomy dependence ([facility] [place]) 11/30/2024 Pleural effusion 11/28/2024 Gastric ulceration 2024 Atrial flutter, unspecified type ([facility] [place]) 10/03/2024 RSV (acute bronchiolitis due to respiratory syncytial virus) 10/03/2024 Diverticulosis 10/08/2023 Nonrheumatic aortic valve stenosis 10/08/2023 Calcification of abdominal aorta ([facility] [place]) 10/08/2023 Missed vaccination due to patient refusal 10/08/2023 Tobacco abuse 10/08/2023 Alcohol use disorder in remission 10/08/2023 Paroxysmal A-fib ([facility] [place]) ([facility]) 08/18/2023 HTN (hypertension) 12/01/2022 ESRD on hemodialysis ([facility] [place]) ([facility]) 10/26/2019 IgA nephropathy determined by biopsy of kidney 10/26/2019 Aortic stenosis 10/03/2024 Upper GI bleed 10/03/2024 S/P AVR 10/03/2024 Acute hypoxic respiratory failure ([facility] [place]) 10/03/2024 Acute encephalopathy 10/03/2024 Pneumoperitoneum 10/03/2024 Anemia 12/30/2021 ASSESSMENT/PLAN: ESRD. HD MWF schedule Anemia. PRBC if Hb less than 7 GI bleed. Gastroenterology following Cindy Patel MD 01/21/2025 4:54 PM Family Communication Number Called: [phone] Name of Designated Family Baseball Pitcher: Omar son I spoke with the individual listed above Family Baseball Pitcher Updated on the Following: - Updated Omar [...] sodium chloride 0.9 % 100 mL IVPB (Add-Castleton), 3,000 mg, IntraVENous, q12h, Steve Lassiter MD, [...] Coumadin, last dose suspected 01/18/[address] [facility] Acute Right occipital ICH- 10/22/24 ESRD [...] proceed with planned procedure. Parth VASQUEZ Gastroenterology [facility] Progress Note SUBJECTIVE: Jun Snyder [...] sodium chloride 0.9 % 100 mL IVPB (Add-Castleton), 3,000 mg, IntraVENous, q12h, Steve Lassiter MD, [...] Problem List Diagnosis Date Noted Severe malnutrition ([facility]) ([facility]) 01/19/2025 Complication of tracheostomy ([facility] [place]) ([facility]) 01/19/2025 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 01/12/2025 Acute respiratory failure with hypoxia ([facility]) [J96.01] 01/08/2025 Tracheostomy care ([facility]) [Z43.0] 01/08/2025 Pulmonary embolism ([facility]) 01/08/2025 Sacral osteomyelitis ([facility] [place]) ([facility]) 01/03/2025 Pneumonia of both lungs due to methicillin susceptible Staphylococcus aureus (MSSA) ([facility] [place]) 01/01/2025 Leukocytosis 12/30/2024 Decubitus ulcer of sacral region, unstageable ([facility] [place]) 12/30/2024 Peritonitis due to fungus ([facility]) 11/30/2024 History of abdominal surgery 11/30/2024 Leg DVT (deep venous thromboembolism), acute, left ([facility]) 11/30/2024 Ischemic ulcer of toe of left foot, limited to breakdown of skin ([facility] [place]) 11/30/2024 Tracheostomy dependence ([facility] [place]) 11/30/2024 Pleural effusion 11/28/2024 Gastric ulceration 2024 Atrial flutter, unspecified type ([facility] [place]) 10/03/2024 RSV (acute bronchiolitis due to respiratory syncytial virus) 10/03/2024 Diverticulosis 10/08/2023 Nonrheumatic aortic valve stenosis 10/08/2023 Calcification of abdominal aorta ([facility] [place]) 10/08/2023 Missed vaccination due to patient refusal 10/08/2023 Tobacco abuse 10/08/2023 Alcohol use disorder in remission 10/08/2023 Paroxysmal A-fib ([facility] [place]) ([facility]) 08/18/2023 HTN (hypertension) 12/01/2022 ESRD on hemodialysis ([facility] [place]) ([facility]) 10/26/2019 IgA nephropathy determined by biopsy of kidney 10/26/2019 Aortic stenosis 10/03/2024 Upper GI bleed 10/03/2024 S/P AVR 10/03/2024 Acute hypoxic respiratory failure ([facility]) 10/03/2024 Acute encephalopathy 10/03/2024 Pneumoperitoneum 10/03/2024 Anemia 12/30/2021 ASSESSMENT/PLAN: ESRD. HD MWF schedule. HD today. See orders Anemia. PRBC if Hb less than 7 Later in the day dialysis had to be discontinued a little early due to GI bleed and other events. Will reassess tomorrow Cindy Patel MD 01/20/2025 5:52 PM Images from the original note were not included. OCCUPATIONAL THERAPY [facility] Initial Evaluation Name/MRN: Jair Snyder ([id number]) Evaluation Date: 01/20/2025 Date of : 1965 Admission Date: 01/19/2025 2:13 AM Age: 59 y.o. Room/Bed: [facility] A Discharge Recommendation: Nursing Home Facility Other: [...] planned discharge. Admitting Diagnosis: Complication of tracheostomy ([facility]) ([facility]) Performance Deficits /Impairments: Decreased Functional Mobility, Decreased [...] History: Diagnosis Date Acute renal failure (ARF) ([facility]) 10/19/2019 Anemia 12/30/2021 Calcification of abdominal aorta ([facility]) 10/08/202309/[address] abd Diverticulosis 10/08/2023 ESRD on hemodialysis ([facility] [place]) ([facility]) 10/26/2019 Hemodialysis patient ([facility]) ([facility]) HTN (hypertension) 12/01/2022 Hypertension IgA nephropathy IgA nephropathy determined by biopsy of kidney 10/26/2019 Missed vaccination due to patient refusal 10/08/2023 Has a number of non-scientific based beliefs which interfere with his understanding and acceptance of the medical benefit of vaccination. Nonrheumatic aortic valve stenosis 10/08/2023 Paroxysmal A-fib ([facility]) ([facility]) 08/18/2023 Tobacco abuse 10/08/2023 Past Surgical History: Past Surgical History: Procedure Laterality Date APPENDECTOMY CARDIAC CATHETERIZATION N/A 10/09/2024 Performed by Bob Watson MD at [facility] Cardiac Cath/EP Lab CARDIAC CATHETERIZATION Bilateral 11/01/2024 Performed by Bob Watson MD at [facility] Cardiac Cath/EP Lab CARDIAC CATHETERIZATION N/A 11/01/2024 Performed by Bob Watson MD at [facility] Cardiac Cath/EP Lab FISTULAGRAM (HISTORICAL) Left 09/15/2021 LEFT UPPER ARM HX AV FISTULA CREATION IR EMBOLIZATION 10/14/2024 IR EMBOLIZATION 10/14/2024 [facility] SPECIAL PROCEDURES IR FISTULAGRAM 08/07/2022 IR FISTULAGRAM 08/07/2022 [facility] IR IMAGING TONSILLECTOMY (HISTORICAL) Admission Diagnosis: Patient Active Problem List Diagnosis Date Noted Severe malnutrition ([facility]) ([facility]) 01/19/2025 Complication of tracheostomy ([facility]) ([facility]) 01/19/2025 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 01/12/2025 Acute respiratory failure with hypoxia ([facility]) [J96.01] 01/08/2025 Tracheostomy care ([facility]) [Z43.0] 01/08/2025 Pulmonary embolism ([facility]) 01/08/2025 Sacral osteomyelitis ([facility]) ([facility]) 01/03/2025 Pneumonia of both lungs due to methicillin susceptible Staphylococcus aureus (MSSA) ([facility]) 01/01/2025 Leukocytosis 12/30/2024 Decubitus ulcer of sacral region, unstageable ([facility]) 12/30/2024 Peritonitis due to fungus ([facility]) 11/30/2024 History of abdominal surgery 11/30/2024 Leg DVT (deep venous thromboembolism), acute, left ([facility]) 11/30/2024 Ischemic ulcer of toe of left foot, limited to breakdown of skin ([facility]) 11/30/2024 Tracheostomy dependence ([facility]) 11/30/2024 Pleural effusion 11/28/2024 Gastric ulceration 2024 Atrial flutter, unspecified type ([facility]) 10/03/2024 RSV (acute bronchiolitis due to respiratory syncytial virus) 10/03/2024 Diverticulosis 10/08/2023 Nonrheumatic aortic valve stenosis 10/08/2023 Calcification of abdominal aorta ([facility]) 10/08/2023 Missed vaccination due to patient refusal 10/08/2023 Tobacco abuse 10/08/2023 Alcohol use disorder in remission 10/08/2023 Paroxysmal A-fib ([facility]) ([facility]) 08/18/2023 HTN (hypertension) 12/01/2022 ESRD on hemodialysis ([facility]) ([facility]) 10/26/2019 IgA nephropathy determined by biopsy of kidney 10/26/2019 Aortic stenosis 10/03/2024 Upper GI bleed 10/03/2024 S/P AVR 10/03/2024 Acute hypoxic respiratory failure ([facility]) 10/03/2024 Acute encephalopathy 10/03/2024 Pneumoperitoneum 10/03/2024 Anemia [...] events, decreased short term memory, and decreased edge roller memory - Safety judgement: decreased awareness of [...] of Care supervision is transferred to a [facility] Therapy Services Occupational Therapist. Goals and/or treatment plan was established in collaboration with patient/family/other representatives. Hospitalist Progress Note 01/20/2025 Subjective: Admit Date: 01/19/2025 PCP: Leilani Troncoso Room#: [id number] A BRIEF HOSPITAL COURSE: Patient is a 59 yo male with a PMH of Trach and peg, HTN, paroxysmal a-fib, R occipital ICH, Tobacco abuse, ARF - dialysis (TTS; LUE AVF), diverticulosis, IgA nephropathy, severe that presented to [facility] ED from a facility due to trach dislodgement. Per patient, was trying to disconnect his vent to transfer to another room but accidentally pulled out his tracheostomy. This event happened approximately 45 minutes before ED arrival. ED attempted to place tracheostomy tube back but were unsuccessful. Decision was made to transfer patient to [facility] ICU for further airway management and determine if replacement tracheostomy is needed. Was observed at [facility] ICU initially and transferred to [facility] on 01/20. Noted removal of trach. [...] History: Diagnosis Date Acute renal failure (ARF) ([facility]) 10/19/2019 Anemia 12/30/2021 Calcification of abdominal aorta ([facility]) 10/08/202309/[address] abd Diverticulosis 10/08/2023 ESRD on hemodialysis ([facility]) ([facility]) 10/26/2019 Hemodialysis patient ([facility]) ([facility]) HTN (hypertension) 12/01/2022 Hypertension IgA nephropathy IgA nephropathy determined by biopsy of kidney 10/26/2019 Missed vaccination due to patient refusal 10/08/2023 Has a number of non-scientific based beliefs which interfere with his understanding and acceptance of the medical benefit of vaccination. Nonrheumatic aortic valve stenosis 10/08/2023 Paroxysmal A-fib ([facility]) ([facility]) 08/18/2023 Tobacco abuse 10/08/2023 LABS: CBC: Recent [...] and limit nighttime disturbances - DVT prophylaxis: [facility] 02-01-2025 Hospital course Narrative Discharge Summary Jun Snyder : 1965 ADMIT DATE: 01/19/2025 DISCHARGE DATE: 02/01/2025 PRIMARY CARE PHYSICIAN: Leilani Troncoso VISIT STATUS: Admission CODE STATUS: Full Code DISCHARGE DIAGNOSES: Principal Problem: Complication of tracheostomy (CMS/HCC) ([facility]) Active Problems: Severe malnutrition (CMS/HCC) ([facility]) BRBPR (bright red blood per rectum) HOSPITAL COURSE: Jun Snyder is a 59 y.o. male who who presented to [facility] 01/19 after inadvertent removal of his tracheostomy. He was transferred to [facility] ICU for surgical evaluation. On [...] HD successfully. hemodynamically stable. Transferred out to [facility] 01/27 ID following for sacral osteomyelitis, s/p wound debridement to bone on 01/02, cultures grew E faecalis and Clostridium, continue with renally dosed ampicillin sulbactam for 6 weeks course through 02/13/2025, needs tunneled line, status post IR CVC tunneled line on 01/29 Nephrology following, on dialysis QUALITY IMPROVEMENT MANAGER following PT/OT recommends SNF Patient will be [...] History: Diagnosis Date Acute renal failure (ARF) ([facility]) 10/19/2019 Anemia 12/30/2021 Calcification of abdominal aorta ([facility]) 10/08/202309/[address] abd Diverticulosis 10/08/2023 ESRD on hemodialysis ([facility]) ([facility]) 10/26/2019 Hemodialysis patient ([facility]) ([facility]) HTN (hypertension) 12/01/2022 Hypertension IgA nephropathy IgA nephropathy determined by biopsy of kidney 10/26/2019 Missed vaccination due to patient refusal 10/08/2023 Has a number of non-scientific based beliefs which interfere with his understanding and acceptance of the medical benefit of vaccination. Nonrheumatic aortic valve stenosis 10/08/2023 Paroxysmal A-fib ([facility]) ([facility]) 08/18/2023 Tobacco abuse 10/08/2023 Adult diet Dysphagia [...] by ID -S/p tunneled central line placement -QUALITY IMPROVEMENT MANAGER follow, dysphagia diet -PT OT DC recommend SNF SIGNIFICANT DIAGNOSTIC STUDIES: IR cvc tunneled central line placement [[id number]] Collected: 01/30/25 143 Order Status: Completed Updated: [...] FL modified barium with video and speech [[id number]] Collected: 01/25/25 1328 Order Status: Completed Updated: [...] 3:12 PM EDT XR chest 1 view [[id number]] Collected: 01/24/25 0158 Order Status: Completed Updated: [...] pelvis angiogram w and/or wo IV contrast [[id number]] Collected: 01/20/25 1849 Order Status: Completed Updated: [...] 7:02 PM EDT XR chest 1 view [[id number]] Collected: 01/19/25614 Order Status: Completed Updated: 01/19/25616 [...] 6:16 AM EDT XR chest 1 view [[id number]] Collected: 01/18/25 1242 Order Status: Completed Updated: [...] days. CONTINUE taking these medications epoetin rowan-epbx 38600 UNIT/ML injection Commonly known as: Retacrit Inject [...] Complexity: follow up within 7-14 calendar days (09963) [] Severe Complexity: follow up within 7 calendar days (18733) FOLLOW UP TESTING, PENDING RESULTS OR REFERRALS AT TRANSITIONAL CARE VISIT: [] Yes [] No PENDING STUDIES: DISPOSITION: Skilled Facility FACILITY/HOME CARE AGENCY NAME: Follow up with [facility] [address] [place] [id number] Gurdeep Cruz MD [address] [place] [address] [address] [facility] [phone] Schedule an appointment as soon as possible [...] 02/01/2025, 10:29 AM documented in this encounter [facility] 01-29-2025 Telephone encount er Note Chart reviewed, patient appears to be sensitive to warfarin at this time and I wouldn't be able to guarantee INR remains less than 3, so opted to hold dose today. I canceled order. [facility] Work Phone: 01-29-2025 Miscellaneous Notes Formattin g of this note might be different from the original. Chart reviewed, patient appears to be sensitive to warfarin at this time and I wouldn't be able to guarantee INR remains less than 3, so opted to hold dose today. I canceled order. SWEETIE Singh with [facility] called to inform [facility] patient is scheduled to have [...] as needed tomorrow. documented in this encounter [facility] 01-29-2025 Telephone encount er [...] SAILAJA will make adjustments as needed tomorrow. [facility] 01-26-2025 Hospital Discharg e [...] 10/09/2024 Performed by Bob Watson MD at [facility] Cardiac Cath/EP Lab CARDIAC CATHETERIZATION Bilateral 11/01/2024 Performed by Bob Watson MD at [facility] Cardiac Cath/EP Lab CARDIAC CATHETERIZATION N/A 11/01/2024 Performed by Bob Watson MD at [facility] Cardiac Cath/EP Lab COLONOSCOPY N/A 01/24/2025 Performed by Chadd Davis MD at [facility] ENDOSCOPY FISTULAGRAM (HISTORICAL) Left 09/15/2021 LEFT UPPER ARM HX AV FISTULA CREATION IR EMBOLIZATION 10/14/2024 IR EMBOLIZATION 10/14/2024 [facility] SPECIAL PROCEDURES IR FISTULAGRAM 08/07/2022 [...] Overview Signed 10/08/2023 4:44 PM by Jr Sahh MD 09/[address] abd Missed vaccination [...] (CMS/HCC) (HCC) Acute respiratory failure with hypoxia ([facility]) [J96.01] Tracheostomy care ([facility]) [Z43.0] Pulmonary embolism ([facility]) 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 Anemia Aortic stenosis Upper GI bleed S/P AVR Acute hypoxic respiratory failure ([facility]) Acute encephalopathy Pneumoperitoneum BRBPR (bright red blood [...] Total assistance Toileting Total assistance Feeding Independent Inventory Manager Independent Med Delivery yes Wound Care Documentation and Therapy: Wound/Incision 11/13/24 Pressure Injury Sacrum (Active) Wound Image 01/19/[address];Red 01/26/25 1200 Mahnaz-Wound Assessment Intact 01/26/25 0355 [...] Date: 01/21/25 Discharging to Facility/ Agency Name: [facility] Address: [address] [place] [address] Fax: Dialysis Facility (if applicable) Name: Address: Dialysis Schedule: [facility] Phone: Fax: Administrative Operations Coordinator/Black Powder Glazing Operator signature: ICIAN SECTION Name: Jun Snyder Prognosis: fair Condition at Discharge: stable Rehab Potential (if transferring to Rehab): fair Recommended Labs or Other Treatments After Discharge: cbc,cmp, PT/INR for warfarin, C/W Ampicillin-Sulbactam till 02/13, F/U with ID The individual is being admitted to a nursing facility directly from an [facility] or a unit of a [facility] that is not operated by or licensed by [facility] under section 5119.14 or 5160-3-15.1 5 The individual requires the level of services provided by a nursing facility for the condition for which he or she was treated in the hospital and, Physician Certification: I certify the above information and transfer of Jun Snyder is necessary for the continuing treatment of the diagnosis listed and that he requires penitentiary facility for less than 30 days. Update Admission H&P: No change in H&P PHYSICIAN SIGNATURE: documented in this encounter [facility] 01-24-2025 Procedure note Images from [...] The patient was placed on a cardiac surgeon and vital signs, pulse oximetry, and level [...] of the procedure. documented in this encounter [facility] 01-23-2025 Consult note Associated Order (s): INPATIENT CONSULT TO WOUND CARE PROVIDERS Images from the original note were not included. [facility] Re-CONSULT Note Jun Snyder AGE: [...] diverticulosis, IgA nephropathy, severe that presented to [facility] ED from a facility due [...] History: Diagnosis Date Acute renal failure (ARF) ([facility]) 10/19/2019 Anemia 12/30/2021 Calcification of abdominal aorta ([facility]) 10/08/202309/[address] abd Diverticulosis 10/08/2023 ESRD on hemodialysis ([facility]) ([facility]) 10/26/2019 Hemodialysis patient ([facility]) ([facility]) HTN (hypertension) 12/01/2022 Hypertension IgA nephropathy IgA nephropathy determined by biopsy of kidney 10/26/2019 Missed vaccination due to patient refusal 10/08/2023 Has a number of non-scientific based beliefs which interfere with his understanding and acceptance of the medical benefit of vaccination. Nonrheumatic aortic valve stenosis 10/08/2023 Paroxysmal A-fib ([facility]) ([facility]) 08/18/2023 Tobacco abuse 10/08/2023 PAST SURGICAL HISTORY Past Surgical History: Procedure Laterality Date APPENDECTOMY CARDIAC CATHETERIZATION N/A 10/09/2024 Performed by Bob Watson MD at [facility] Cardiac Cath/EP Lab CARDIAC CATHETERIZATION Bilateral 11/01/2024 Performed by Bob Watson MD at [facility] Cardiac Cath/EP Lab CARDIAC CATHETERIZATION N/A 11/01/2024 Performed by Bob Watson MD at [facility] Cardiac Cath/EP Lab FISTULAGRAM (HISTORICAL) Left 09/15/2021 LEFT UPPER ARM HX AV FISTULA CREATION IR EMBOLIZATION 10/14/2024 IR EMBOLIZATION 10/14/2024 [facility] SPECIAL PROCEDURES IR FISTULAGRAM 08/07/2022 IR FISTULAGRAM 08/07/2022 [facility] IR IMAGING TONSILLECTOMY (HISTORICAL) FAMILY [...] Medication Sig Dispense Refill epoetin rowan-epbx (Retacrit) 18448 UNIT/ML injection Inject 0.79 mL (7,900 Units) [...] to follow Recommend to follow up at [facility] Outpatient wound care center after [...] Gill DO at 01/29/2025 4:[address] [facility] Anticoagulation Management Service (SAILAJA) Inpatient Warfarin Consult HPI: Jun Snyder is a 59 y.o. male admitted on 01/19/2025 for Complication of tracheostomy (CMS/HCC) ([facility]) [J95.00] Past Medical History: Diagnosis Date Acute renal failure (ARF) ([facility]) 10/19/2019 Anemia 12/30/2021 Calcification of abdominal aorta (HCC) 10/08/202309/[address] abd Diverticulosis 10/08/2023 ESRD on hemodialysis (CMS/HCC) (HCC) 10/26/2019 Hemodialysis patient (CMS/HCC) ([facility]) HTN (hypertension) 12/01/2022 Hypertension IgA nephropathy IgA [...] facility, has yet to be seen by [facility]. Pt's home dose of warfarin [...] and plan for colonoscopy tomorrow, please notify [facility] when able to resume anticoagulation. 2. Monitor for s/s of bleeding and drug interactions. Will adjust dose accordingly 3. Will facilitate f/u at [facility] upon discharge Fatuma Odonnell RPh, PharmD [facility] is available daily [phone] via [employer]. If no response on [employer] Chat then please page [phone]. Images from the original note were not [...] AV replacement Supratherapeutic INR - [facility] [employer] Engineer valve in 09/2024 - coumadin held due [...] Palliative Care IDT members involved: Palliative Care Black Powder Glazing Operator Discussed the plan of care with the other interdisciplinary team (IDT) members of the Palliative Care and Hospice teams and Patient. Tex Cotto MD Subjective: Subjective/Events Mr. Jnu Snyder is a 59 year old male [...] dislodging his tracheostomy, and was brought to [facility] ED for further care. Palliative [...] the last several months, with being in [facility] and now back into the hospital. I [...] child(rocky) Living status: SNF Work history: unknown [place] status: unknown Lutheran annette: Non-Church ROS: See palliative care ROS/ESAS below; All other systems were reviewed and are negative. Herndon Symptom Assessment Score Herndon Score Pain Score (if non-verbal, add .FLACC [...] History: Diagnosis Date Acute renal failure (ARF) ([facility]) 10/19/2019 Anemia 12/30/2021 Calcification of abdominal aorta ([facility]) 10/08/202309/[address] abd Diverticulosis 10/08/2023 ESRD on hemodialysis ([facility]) ([facility]) 10/26/2019 Hemodialysis patient ([facility]) ([facility]) HTN (hypertension) 12/01/2022 Hypertension IgA nephropathy IgA nephropathy determined by biopsy of kidney 10/26/2019 Missed vaccination due to patient refusal 10/08/2023 Has a number of non-scientific based beliefs which interfere with his understanding and acceptance of the medical benefit of vaccination. Nonrheumatic aortic valve stenosis 10/08/2023 Paroxysmal A-fib ([facility]) ([facility]) 08/18/2023 Tobacco abuse 10/08/2023 Past Surgical History: Procedure Laterality Date APPENDECTOMY CARDIAC CATHETERIZATION N/A 10/09/2024 Performed by Bob Watson MD at [facility] Cardiac Cath/EP Lab CARDIAC CATHETERIZATION Bilateral 11/01/2024 Performed by Bob Watson MD at [facility] Cardiac Cath/EP Lab CARDIAC CATHETERIZATION N/A 11/01/2024 Performed by Bob Watson MD at [facility] Cardiac Cath/EP Lab FISTULAGRAM (HISTORICAL) Left 09/15/2021 LEFT UPPER ARM HX AV FISTULA CREATION IR EMBOLIZATION 10/14/2024 IR EMBOLIZATION 10/14/2024 [facility] SPECIAL PROCEDURES IR FISTULAGRAM 08/07/2022 [...] Transition Note Initiated: yes Tex Cotto MD [facility] Anticoagulation Management Service (SAILAJA) Inpatient Warfarin Consult HPI: Jun Snyder is a 59 y.o. male admitted on 01/19/2025 for Complication of tracheostomy (CMS/HCC) ([facility]) [J95.00] Past Medical History: Diagnosis Date Acute renal failure (ARF) ([facility]) 10/19/2019 Anemia 12/30/2021 Calcification of abdominal aorta (HCC) 10/08/202309/[address] abd Diverticulosis 10/08/2023 ESRD on hemodialysis ([facility]) ([facility]) 10/26/2019 Hemodialysis patient ([facility]) ([facility]) HTN (hypertension) 12/01/2022 Hypertension IgA nephropathy IgA nephropathy determined by biopsy of kidney 10/26/2019 Missed vaccination due to patient refusal 10/08/2023 Has a number of non-scientific based beliefs which interfere with his understanding and acceptance of the medical benefit of vaccination. Nonrheumatic aortic valve stenosis 10/08/2023 Paroxysmal A-fib ([facility]) ([facility]) 08/18/2023 Tobacco abuse 10/08/2023 Patient is on warfarin for Afib, mechanical AVR and has a goal INR 2.0 - 3.0. Warfarin is currently managed by facility, has yet to be seen by [facility]. Pt's home dose of warfarin [...] possible GIB and elevated INR, please notify [facility] when able to resume anticoagulation. 2. Monitor for s/s of bleeding and drug interactions. Will adjust dose accordingly 3. Will facilitate f/u at [facility] upon discharge Fatuma Odonnell RPh, PharmD [facility] is available daily [phone] via [employer]. If no response on [employer] Chat then please page [phone]. [facility] Anticoagulation Management Service (SAILAJA) Inpatient Warfarin Consult HPI: Jun Snyder is a 59 y.o. male admitted on 01/19/2025 for Complication of tracheostomy ([facility]) ([facility]) [J95.00] Past Medical History: Diagnosis Date Acute renal failure (ARF) ([facility]) 10/19/2019 Anemia 12/30/2021 Calcification of abdominal aorta ([facility]) 10/08/202309/[address] abd Diverticulosis 10/08/2023 ESRD on hemodialysis ([facility]) ([facility]) 10/26/2019 Hemodialysis patient ([facility]) ([facility]) HTN (hypertension) 12/01/2022 Hypertension IgA nephropathy IgA nephropathy determined by biopsy of kidney 10/26/2019 Missed vaccination due to patient refusal 10/08/2023 Has a number of non-scientific based beliefs which interfere with his understanding and acceptance of the medical benefit of vaccination. Nonrheumatic aortic valve stenosis 10/08/2023 Paroxysmal A-fib ([facility]) ([facility]) 08/18/2023 Tobacco abuse 10/08/2023 Patient is on [...] admission. Holding warfarin for GIB, please notify [facility] when able to resume anticoagulation. 2. Monitor for s/s of bleeding and drug interactions. Will adjust dose accordingly 3. Will facilitate f/u at [facility] upon discharge Darryn Wagner RPh, PharmD [facility] is available daily [phone] via [employer]. If no response on Epic Chat then please page [phone]. Associated Order(s): IP CONSULT TO GENERAL SURGERY Images from the original note were not included. Department of General Surgery Surgical Service - [facility] Resident Consult Note 01/21/2025 CHIEF COMPLAINT: Chief [...] History: Diagnosis Date Acute renal failure (ARF) ([facility]) 10/19/2019 Anemia 12/30/2021 Calcification of abdominal aorta ([facility]) 10/08/202309/[address] abd Diverticulosis 10/08/2023 ESRD on hemodialysis ([facility]) ([facility]) 10/26/2019 Hemodialysis patient ([facility]) ([facility]) HTN (hypertension) 12/01/2022 Hypertension IgA nephropathy IgA nephropathy determined by biopsy of kidney 10/26/2019 Missed vaccination due to patient refusal 10/08/2023 Has a number of non-scientific based beliefs which interfere with his understanding and acceptance of the medical benefit of vaccination. Nonrheumatic aortic valve stenosis 10/08/2023 Paroxysmal A-fib ([facility]) ([facility]) 08/18/2023 Tobacco abuse 10/08/2023 Past Surgical History: Procedure Laterality Date APPENDECTOMY CARDIAC CATHETERIZATION N/A 10/09/2024 Performed by Bob Watson MD at [facility] Cardiac Cath/EP Lab CARDIAC CATHETERIZATION Bilateral 11/01/2024 Performed by Bob Watson MD at [facility] Cardiac Cath/EP Lab CARDIAC CATHETERIZATION N/A 11/01/2024 Performed by Bob Watson MD at [facility] Cardiac Cath/EP Lab FISTULAGRAM (HISTORICAL) Left 09/15/2021 LEFT UPPER ARM HX AV FISTULA CREATION IR EMBOLIZATION 10/14/2024 IR EMBOLIZATION 10/14/2024 [facility] SPECIAL PROCEDURES IR FISTULAGRAM 08/07/2022 IR FISTULAGRAM 08/07/2022 [facility] IR IMAGING TONSILLECTOMY (HISTORICAL) Medications Prior to Admission: Current Facility-Administered Medications Medication Dose Route Frequency Provider Last Rate Last Admin acetaminophen (Tylenol) tablet 1,000 mg 1,000 mg Oral q8h PRN Steve Lassiter MD 1,000 mg at 01/19/25 1540 ampicillin-sulbactam (Unasyn) 3,000 mg in sodium chloride 0.9 % 100 mL IVPB (Add-[place]leton) 3,000 mg IntraVENous q12h Steve Lassiter MD [...] 5 mg Per G Tube Nightly PRN Setve Lassiter MD [Held by provider] metoprolol tartrate [...] No Stress Concern Present (01/18/2025) Received from [facility] of Occupational Health - Occupational Stress Questionnaire Feeling of Stress : Not at all Social Connections: Patient Unable To Answer (12/01/2024) Received from [facility] Medical Social Connection and Isolation Panel [NHANES] Frequency of Communication with Friends and Family: Patient unable to answer Frequency of Social Gatherings with Friends and Family: Patient unable to answer Attends [employer] Services: Patient unable to answer Active Member [...] Patient Unable To Answer (12/01/2024) Received from [facility] Housing Stability Vital Sign [...] LIPASE IMAGING: POCT glucose meter Performed by: [email or web address], [address] [place] [id number] CLIA ID: [id number] POCT glucose meter Performed by: [facility], [address] [place] [address] [place] [address] CLIA ID: [id number] POCT glucose meter Performed by: [facility], [address] [place] [address] [place] [address] CLIA ID: [id number] POCT glucose meter Performed by: [facility], [address] [place] [address] CLIA ID: [id number] POCT glucose meter [facility]formed [facility]: [facility], [address] [place] [address], [facility] [address] CLIA ID: [id number] POCT glucose meter Performed by: [facility], [address] [place] [address], [facility] [address] CLIA ID: [id number] ASSESSMENT AND PLAN: Jun Snyder is a [...] Brenton Goldstein MD General Surgery PGY-1 Pager #[phone] Cosigned by Tex Brush MD at 01/22/2025 [...] due to methicillin susceptible Staphylococcus aureus (MSSA) ([facility]) Sacral osteomyelitis (CMS/HCC) ([facility]) Acute respiratory failure with hypoxia ([facility]) [J96.01] Tracheostomy care ([facility]) [Z43.0] Pulmonary embolism ([facility]) 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 Complication of tracheostomy (CMS/HCC) ([facility]) I personally supervised the resident physician in [...] Surgery Division of Trauma Department of Surgery [facility] Images from the original note were [...] IgA nephropathy, severe who was admitted to [facility] 01/19 due to trach dislodgement. [...] Normal [] Scar/Lesion/Mass Inspection of teeth/lips/gums Dentition: []Sokaogon Teeth []Dentures Lips/Gums: [x]Intact []Lesion Present Mucosa: [x]Green Lane []Moist [x]Dry Neck: External Appearance Overall Appearance: [...] Plan: Principal Problem: Complication of tracheostomy (CMS/HCC) ([facility]) Active Problems: Severe malnutrition (CMS/HCC) ([facility]) Assessment: Rectal bleeding with concern for GIB [...] 2:43 PM I have personally performed a nrcb-bd-[id number] diagnostic evaluation on this patient on date of service 01/21/2025. History, labs, imaging studies, and electronic medical record have been reviewed by me. This note documented by the [x]warehouse technician []ARMIN reflects my history, exam, and medical decision making. I have reviewed and agree with the care plan. Changes were made in the orders as necessary. ROS documentation was reviewed and negative unless otherwise stated in HPI. Additional pertinent interval history, ROS, and physical exam findings: Mr Snyder is a 59 year old male who presented to [facility] 01/19 after inadvertent removal of his tracheostomy. He was transferred to [facility] ICU for surgical evaluation. On [...] maintain >7 -Hold coumadin -Continue protonix bid -GLAZIER HELPER per nephrology, will appreciate recs -Consult general [...] Abhishek gastrostomy tube placement, who presented to [facility] on 01/19/25 as a transfer from [facility] Per patient, was trying to disconnect his vent to transfer to another room but accidentally pulled out his tracheostomy. This event happened approximately 45 minutes before ED arrival. ED attempted to place tracheostomy tube back but were unsuccessful. Decision was made to transfer patient to [facility] ICU for further airway management and determine if replacement tracheostomy is needed. Patient was admitted to the MICU-01/19 where he was evaluated by general surgery for re-do tracheostomy and determined to be saturating appropriately on room air without need for re-placement. Patient was transferred out of the MICU for potential [facility]. The MICU is consulted now for [...] History: Diagnosis Date Acute renal failure (ARF) ([facility]) 10/19/2019 Anemia 12/30/2021 Calcification of abdominal aorta ([facility]) 10/08/202309/[address] abd Diverticulosis 10/08/2023 ESRD on hemodialysis ([facility]) ([facility]) 10/26/2019 Hemodialysis patient ([facility]) ([facility]) HTN (hypertension) 12/01/2022 Hypertension IgA nephropathy IgA nephropathy determined by biopsy of kidney 10/26/2019 Missed vaccination due to patient refusal 10/08/2023 Has a number of non-scientific based beliefs which interfere with his understanding and acceptance of the medical benefit of vaccination. Nonrheumatic aortic valve stenosis 10/08/2023 Paroxysmal A-fib ([facility]) ([facility]) 08/18/2023 Tobacco abuse 10/08/2023 Past Surgical History: Procedure Laterality Date APPENDECTOMY CARDIAC CATHETERIZATION N/A 10/09/2024 Performed by Bob Watson MD at [facility] Cardiac Cath/EP Lab CARDIAC CATHETERIZATION Bilateral 11/01/2024 Performed by Bob Watson MD at [facility] Cardiac Cath/EP Lab CARDIAC CATHETERIZATION N/A 11/01/2024 Performed by Bob Watson MD at [facility] Cardiac Cath/EP Lab FISTULAGRAM (HISTORICAL) Left 09/15/2021 LEFT UPPER ARM HX AV FISTULA CREATION IR EMBOLIZATION 10/14/2024 IR EMBOLIZATION 10/14/2024 [facility] SPECIAL PROCEDURES IR FISTULAGRAM 08/07/2022 [...] Patient Unable To Answer (12/01/2024) Received from [facility] Overall Financial Resource Strain (CARDIA) Difficulty of Paying Living Expenses: Patient unable to answer Food Insecurity: Patient Unable To Answer (12/01/2024) Received from [facility] Hunger Vital Sign Worried About Running Out of Food in the Last Year: Patient unable to answer Ran Out of Food in the Last Year: Patient unable to answer Transportation Needs: No Transportation Needs (01/18/2025) Received from [facility] Transportation Source Has lack of transportation kept you from medical appointments or from getting medications?: No Has lack of transportation kept you from meetings, work, or from getting things needed for daily living?: No Physical Activity: Not on file Stress: No Stress Concern Present (01/18/2025) Received from [facility] of Occupational Health - Occupational Stress Questionnaire Feeling of Stress : Not at all Social Connections: Patient Unable To Answer (12/01/2024) Received from [facility] Medical Social Connection and Isolation Panel [NHANES] Frequency of Communication with Friends and Family: Patient unable to answer Frequency of Social Gatherings with Friends and Family: Patient unable to answer Attends [employer] Services: Patient unable to answer Active Member [...] to assess Physical Abuse: Unable to assess [facility] Domestic Abuse - Type of Abuse: Not on file [facility] Domestic Abuse - Time Frame: Not on file [facility] Domestic Abuse - Signs and Symptoms: Not on file Verbal Abuse: Unable to assess [facility] Domestic Abuse - Reported To: Not on file Housing Stability: Patient Unable To Answer (12/01/2024) Received from [facility] Vital Sign Unable to Pay for Housing in the Last Year: Patient unable to answer Number of Times Moved in the Last Year: 0 Homeless in the Last Year: Patient unable to answer Allergies Allergen Reactions Lisinopril Swelling and Angioedema Prior to Admission medications Medication Sig Start Date End Date Taking? Authorizing Provider epoetin rowan-epbx (Retacrit) 16735 UNIT/ML injection Inject 0.79 mL (7,900 Units) [...] Normal [] Scar/Lesion/Mass Inspection of teeth/lips/gums Dentition: []Sokaogon Teeth []Dentures Lips/Gums: [x]Intact []Lesion Present Mucosa: [x]Green Lane []Moist []Dry Neck: External Appearance Overall Appearance: [...] within last 24 hours- BMP: Recent Labs 01/19/2534101/20/2514 NA 135* 135* K 4.4 4.8 CL [...] -- ABGs: No results for input(s): "PHART", "MQU6KVR", "PO2ART", "UQQ2NUQ", "SO2ART", "S7LGJNWT" in the last 72 hours. Lactic Acid: [...] Plan: Principal Problem: Complication of tracheostomy (CMS/HCC) ([facility]) Active Problems: Severe malnutrition (CMS/HCC) ([facility]) Assessment: Passage of Bright red blood per [...] normal BMI 18.5-24.9 Disposition: Remain on the [facility] Critical Care Time: Total critical care [...] PM EDT I have personally performed a dqlx-fy-wqnh diagnostic evaluation on this patient on date of service 01/20/25. History, labs, imaging studies, and electronic medical record have been reviewed by me. This note documented by the []warehouse technician []ARMIN reflects my history, exam, and medical [...] from the original note were not included. [facility] - Infectious Diseases Advanced Practice Provider Consult Note Reason for Consult: Sacral ulcer osteomyelitis on IV abx at [facility]- known patient History of Present Illness: 59 yo male with PMHx significant for ESRD on HD, HTN, and PAD who was admitted at [facility] 10/03-11/28/24 after presenting with chest [...] to SNF on 01/18. Patient presented to [facility] on 01/19 after self-dislodging tracheostomy. He was transferred to [facility] ICU for further airway management [...] History: Diagnosis Date Acute renal failure (ARF) ([facility]) 10/19/2019 Anemia 12/30/2021 Calcification of abdominal aorta ([facility]) 10/08/202309/[address] abd Diverticulosis 10/08/2023 ESRD on hemodialysis ([facility]) ([facility]) 10/26/2019 Hemodialysis patient ([facility]) ([facility]) HTN (hypertension) 12/01/2022 Hypertension IgA nephropathy IgA nephropathy determined by biopsy of kidney 10/26/2019 Missed vaccination due to patient refusal 10/08/2023 Has a number of non-scientific based beliefs which interfere with his understanding and acceptance of the medical benefit of vaccination. Nonrheumatic aortic valve stenosis 10/08/2023 Paroxysmal A-fib ([facility]) ([facility]) 08/18/2023 Tobacco abuse 10/08/2023 Past Surgical History: Past Surgical History: Procedure Laterality Date APPENDECTOMY CARDIAC CATHETERIZATION N/A 10/09/2024 Performed by Bob Watson MD at [facility] Cardiac Cath/EP Lab CARDIAC CATHETERIZATION Bilateral 11/01/2024 Performed by Bob Watson MD at [facility] Cardiac Cath/EP Lab CARDIAC CATHETERIZATION N/A 11/01/2024 Performed by Bob Watson MD at [facility] Cardiac Cath/EP Lab FISTULAGRAM (HISTORICAL) Left 09/15/2021 LEFT UPPER ARM HX AV FISTULA CREATION IR EMBOLIZATION 10/14/2024 IR EMBOLIZATION 10/14/2024 [facility] SPECIAL PROCEDURES IR FISTULAGRAM 08/07/2022 IR FISTULAGRAM 08/07/2022 [facility] IR IMAGING TONSILLECTOMY (HISTORICAL) Current Medications: Current Facility-Administered Medications Medication Dose Route Frequency Provider Last Rate Last Admin acetaminophen (Tylenol) tablet 1,000 mg 1,000 mg Oral q8h PRN Steve Lassiter MD 1,000 mg at 01/19/25 1540 ampicillin-sulbactam (Unasyn) 3,000 mg in sodium chloride 0.9 % 100 mL IVPB (Add-Castleton) 3,000 mg IntraVENous q12h Steve Lassiter MD [...] Patient Unable To Answer (12/01/2024) Received from [facility] Overall Financial Resource Strain (CARDIA) Difficulty of Paying Living Expenses: Patient unable to answer Food Insecurity: Patient Unable To Answer (12/01/2024) Received from [facility] Hunger Vital Sign Worried About Running Out of Food in the Last Year: Patient unable to answer Ran Out of Food in the Last Year: Patient unable to answer Transportation Needs: No Transportation Needs (01/18/2025) Received from [facility] Transportation Source Has lack of transportation kept you from medical appointments or from getting medications?: No Has lack of transportation kept you from meetings, work, or from getting things needed for daily living?: No Physical Activity: Not on file Stress: No Stress Concern Present (01/18/2025) Received from [facility] of Occupational Health - Occupational Stress Questionnaire Feeling of Stress : Not at all Social Connections: Patient Unable To Answer (12/01/2024) Received from [facility] Medical Social Connection and Isolation Panel [NHANES] Frequency of Communication with Friends and Family: Patient unable to answer Frequency of Social Gatherings with Friends and Family: Patient unable to answer Attends [employer] Services: Patient unable to answer Active Member [...] to assess Physical Abuse: Unable to assess [facility] Domestic Abuse - Type of Abuse: Not on file [facility] Domestic Abuse - Time Frame: Not on file [facility] Domestic Abuse - Signs and Symptoms: Not on file Verbal Abuse: Unable to assess [facility] Domestic Abuse - Reported To: Not on file Housing Stability: Patient Unable To Answer (12/01/2024) Received from [facility] Housing Stability Vital Sign [...] NEUTROABS 7.6* 7.5 7.5 -- Micro: Previous ([facility]) 01/02- sacral wound cx- E faecalis (Amp-S), skin ila, Clostridium clostrioforme 01/01- blood cx- 2/2 NG 12/30- blood cx- 2/2 NGTD 12/30- sputum cx- MSSA, resp ila 12/25- blood cx- 2/2 negative 12/14- sputum cx- MSSA, resp ila 12/14- MRSA pcr- MSSA 12/11- sputum cx- MSSA, resp ila Previous ([facility]) 11/28- L pleural fluid- negative [...] accounting for open encounter. Mikala MORAN PA-C [facility] Infectious Disease Cosigned by Gurdeep Cruz MD [...] gastrostomy tube placement, who presented to the [facility] emergency room from [facility] on 01/19/2025 where he is admitted for IV antibiotics for multiple infected wounds including dry gangrene to the left foot and sacral ulcers. Patient accidentally pulled his tracheostomy and was therefore transferred to the emergency room. Patient transferred to [facility] for higher level of care. GI [...] throughout entire last hospitalization. On presentation to [facility] 01/19/2025 hemoglobin was 9.1. This morning dropped to 6.6. No transfusion but repeat hemoglobin 3 hours later at 8.2. Currently getting dialysis. Reports he had a BM 5 minutes ago and he does not know what stools have looked like. He denies abdominal pain. No nausea, vomiting. Per patient girlfriend SNF has been flipping [id number]-[id number] between Coumadin and heparin secondary to patient INR. Assume last dose of Coumadin to be 01/18/2025. History of appendectomy and PEG placement. Allergies: Lisinopril Current Medications: Current Facility-Administered Medications: acetaminophen (Tylenol) tablet 1,000 mg, 1,000 mg, Oral, q8h PRN, Steve Lassiter MD, 1,000 mg at 01/19/25 1540 ampicillin-sulbactam (Unasyn) 3,000 mg in sodium chloride 0.9 % 100 mL IVPB (Add-Castleton), 3,000 mg, IntraVENous, q12h, Steve Lassiter MD, [...] Diagnosis Date Noted Anemia 12/30/2021 Paroxysmal A-fib ([facility]) ([facility]) 08/18/2023 HTN (hypertension) 12/01/2022 ESRD on hemodialysis ([facility]) ([facility]) 10/26/2019 IgA nephropathy determined by biopsy of kidney 10/26/2019 Diverticulosis 10/08/2023 Nonrheumatic aortic valve stenosis 10/08/2023 Calcification of abdominal aorta ([facility]) 10/08/2023 Missed vaccination due to patient refusal 10/08/2023 Tobacco abuse 10/08/2023 Alcohol use disorder in remission 10/08/2023 Atrial flutter, unspecified type ([facility]) 10/03/2024 RSV (acute bronchiolitis due to respiratory syncytial virus) 10/03/2024 Aortic stenosis 10/03/2024 Upper GI bleed 10/03/2024 S/P AVR 10/03/2024 Acute hypoxic respiratory failure (HCC) 10/03/2024 Acute encephalopathy 10/03/2024 Pneumoperitoneum 10/03/2024 Gastric ulceration 2024 Severe malnutrition ([facility]) ([facility]) 01/19/2025 Pleural effusion 11/28/2024 Peritonitis due to fungus ([facility]) 11/30/2024 History of abdominal surgery 11/30/2024 Leg DVT (deep venous thromboembolism), acute, left ([facility]) 11/30/2024 Ischemic ulcer of toe of left foot, limited to breakdown of skin ([facility]) 11/30/2024 Tracheostomy dependence ([facility]) 11/30/2024 Leukocytosis 12/30/2024 Decubitus ulcer of sacral region, unstageable ([facility]) 12/30/2024 Pneumonia of both lungs due to methicillin susceptible Staphylococcus aureus (MSSA) ([facility]) 01/01/2025 Sacral osteomyelitis ([facility]) ([facility]) 01/03/2025 Acute respiratory failure with hypoxia ([facility]) [J96.01] 01/08/2025 Tracheostomy care ([facility]) [Z43.0] 01/08/2025 Pulmonary embolism ([facility]) 01/08/2025 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 Resolved Ambulatory Problems Diagnosis Date Noted Acute renal failure (ARF) ([facility]) 10/19/2019 New onset a-fib ([facility]) ([facility]) 08/16/2023 Pulmonary embolism ([facility]) 10/03/2024 Past Medical History: Diagnosis Date Hemodialysis patient ([facility]) ([facility]) Hypertension IgA nephropathy Past Surgical History: Social [...] Needs: No Transportation Needs (01/18/2025) Received from [facility] Transportation Source Has lack of transportation kept you from medical appointments or from getting medications?: No Has lack of transportation kept you from meetings, work, or from getting things needed for daily living?: No Physical Activity: Not on file Stress: No Stress Concern Present (01/18/2025) Received from [facility] of Occupational Health - Occupational Stress Questionnaire Feeling of Stress : Not at all Social Connections: Patient Unable To Answer (12/01/2024) Received from [facility] Medical Social Connection and Isolation Panel [NHANES] Frequency of Communication with Friends and Family: Patient unable to answer Frequency of Social Gatherings with Friends and Family: Patient unable to answer Attends [employer] Services: Patient unable to answer Active Member [...] to assess Physical Abuse: Unable to assess [facility] Domestic Abuse - Type of Abuse: Not on file [facility] Domestic Abuse - Time Frame: Not on file [facility] Domestic Abuse - Signs and Symptoms: Not on file Verbal Abuse: Unable to assess [facility] Domestic Abuse - Reported To: Not on file Housing Stability: Patient Unable To Answer (12/01/2024) Received from [facility] Housing Stability Vital Sign [...] Coumadin, last dose suspected 01/18/[address] [facility] Acute Right occipital ICH- 10/22/24 ESRD [...] 59 y.o. male with who presented to [facility] as transfer for trach dislodgment. [...] on 01/20/25 at 7:18 AM. [facility] Consult Note Consults HPI The patient is a history of ESRD secondary to IgA nephropathy, currently HD-dependent via a left upper extremity AVF, on a Wednesday//Wednesday ([facility]) dialysis schedule, with the last HD [...] History: Diagnosis Date Acute renal failure (ARF) ([facility]) 10/19/2019 Anemia 12/30/2021 Calcification of abdominal aorta ([facility]) 10/08/202309/[address] abd Diverticulosis 10/08/2023 ESRD on hemodialysis ([facility]) ([facility]) 10/26/2019 Hemodialysis patient ([facility]) ([facility]) HTN (hypertension) 12/01/2022 Hypertension IgA nephropathy IgA nephropathy determined by biopsy of kidney 10/26/2019 Missed vaccination due to patient refusal 10/08/2023 Has a number of non-scientific based beliefs which interfere with his understanding and acceptance of the medical benefit of vaccination. Nonrheumatic aortic valve stenosis 10/08/2023 Paroxysmal A-fib ([facility]) ([facility]) 08/18/2023 Tobacco abuse 10/08/2023 Social History Socioeconomic [...] Patient Unable To Answer (12/01/2024) Received from [facility] Overall Financial Resource Strain (CARDIA) Difficulty of Paying Living Expenses: Patient unable to answer Food Insecurity: Patient Unable To Answer (12/01/2024) Received from [facility] Hunger Vital Sign Worried About Running Out of Food in the Last Year: Patient unable to answer Ran Out of Food in the Last Year: Patient unable to answer Transportation Needs: No Transportation Needs (01/18/2025) Received from [facility] Transportation Source Has lack of transportation kept you from medical appointments or from getting medications?: No Has lack of transportation kept you from meetings, work, or from getting things needed for daily living?: No Physical Activity: Not on file Stress: No Stress Concern Present (01/18/2025) Received from [facility]ational Health - Occupational Stress Questionnaire Feeling of Stress : Not at all Social Connections: Patient Unable To Answer (12/01/2024) Received from [facility] Medical Social Connection and Isolation Panel [NHANES] Frequency of Communication with Friends and Family: Patient unable to answer Frequency of Social Gatherings with Friends and Family: Patient unable to answer Attends [employer] Services: Patient unable to answer Active Member [...] to assess Physical Abuse: Unable to assess [facility] Domestic Abuse - Type of Abuse: Not on file [facility] Domestic Abuse - Time Frame: Not on file [facility] Domestic Abuse - Signs and Symptoms: Not on file Verbal Abuse: Unable to assess [facility] Domestic Abuse - Reported To: Not on file Housing Stability: Patient Unable To Answer (12/01/2024) Received from [facility] Stability Vital Sign Unable to [...] sodium chloride 0.9 % 100 mL IVPB (Add-Castleton), 3,000 mg, IntraVENous, Daily, Steve Lassiter MD [...] airway management needs. Maintain NPO status per QUALITY IMPROVEMENT MANAGER recommendations until airway stabilization; consider modification of HD orders if NPO persists beyond 24-48 hours impacting volume/nutrition Please message me through [employer] chat with any questions or concerns. Wellington Nicole MD 01/19/2025 4:13 PM [facility] [address] [place] [address], [address] [place] [id number] Office: [phone] Associated Order(s): IP CONSULT TO DIETITIAN; IP [...] EN only as sole source of nutrition. QUALITY IMPROVEMENT MANAGER was following while pt was at [facility]. QUALITY IMPROVEMENT MANAGER consulted inpatient and recommending strict NPO. RD [...] increased to goal. Will continue to monitor QUALITY IMPROVEMENT MANAGER in the event that oral diet can [...] No significant fluid accumulation (per flowsheets) Supervisor Painting Department Strength: Not Performed Nutrition Assessment: pt with [...] SNF on 01/18/25, pt now presented to [facility] ED on 01/19/[address] [facility] due to trach dislodgement, pt stated he was trying to disconnect his vent to transfer to another room but accidentally pulled out his tracheostomy, event happened approximately 45 minutes before ED arrival, ED attempted to place tracheostomy tube back but was unsuccessful thus decision was made to transfer pt to [facility] ICU for further airway management [...] states he has been like this since [facility], pt was transferred to ICU for further management, Nephrology and wound care consults pending, QUALITY IMPROVEMENT MANAGER was also consulted and recommending strict NPO. In terms of nutrition pt remains NPO at this time, RD spoke with pt in room, no family/visitors present, pt states that he was only receiving nutrition via PEG REGIONAL PROJECT MANAGER, states his goals are to 'eat ice [...] Pt presented from SNF, prolonged admit at [facility] 10/03-11/28/24, discharged to [facility] and recently transferred to [facility] Orientation Level: Oriented to situation, Oriented to time, Oriented to person, Disoriented to place, Oriented/disoriented at times, Cognition: Follows commands, Best Verbal Response: Confused, Patient Behaviors/Mood: Anxious, Cooperative, Restless Teeth: Missing teeth Swallow: Other (Comment) ([facility]) Kee Scale Score: 15. Wound Type: Wound [...] bedscale, 10/31: 200#, 11/28: 161#, 01/18: 142#) [place] Body Weight (lbs) (Calculated): 166 lbs [place] Body Weight (Kg) (Calculated): 75 kg % [place] Body Weight (Calculated): 78.2 % BMI (kg/m2) [...] Nutrition Dana El RD Contact: available via [employer] chat or *[phone] Associated Order(s): INPATIENT CONSULT TO WOUND CARE PROVIDERS Images from the original note were not included. [facility] CONSULT Note Jun nSyder AGE: 59 y.o. GENDER: male : 1965 Subjective: HISTORY of PRESENT ILLNESS HPI Jun Snyder is a 59 y.o. male who presents for a wound consult. HPI: Jun is a 59 yo male with a PMH of Trach and peg, HTN, paroxysmal a-fib, R occipital ICH, Tobacco abuse, ARF - dialysis (TTS; LUE AVF), diverticulosis, IgA nephropathy, severe that presented to [facility] ED from a facility due to trach dislodgement. Wound Care consulted for Pressure Injury sacrum and Ischemic ulcers to left toes" PAST MEDICAL HISTORY Past Medical History: Diagnosis Date Acute renal failure (ARF) ([facility]) 10/19/2019 Anemia 12/30/2021 Calcification of abdominal aorta ([facility]) 10/08/202309/[address] abd Diverticulosis 10/08/2023 ESRD on hemodialysis ([facility]) ([facility]) 10/26/2019 Hemodialysis patient ([facility]) ([facility]) HTN (hypertension) 12/01/2022 Hypertension IgA nephropathy IgA nephropathy determined by biopsy of kidney 10/26/2019 Missed vaccination due to patient refusal 10/08/2023 Has a number of non-scientific based beliefs which interfere with his understanding and acceptance of the medical benefit of vaccination. Nonrheumatic aortic valve stenosis 10/08/2023 Paroxysmal A-fib ([facility]) ([facility]) 08/18/2023 Tobacco abuse 10/08/2023 PAST SURGICAL HISTORY Past Surgical History: Procedure Laterality Date APPENDECTOMY CARDIAC CATHETERIZATION N/A 10/09/2024 Performed by Bob Watson MD at [facility] Cardiac Cath/EP Lab CARDIAC CATHETERIZATION Bilateral 11/01/2024 Performed by Bob Watson MD at [facility] Cardiac Cath/EP Lab CARDIAC CATHETERIZATION N/A 11/01/2024 Performed by Bob Watson MD at [facility] Cardiac Cath/EP Lab FISTULAGRAM (HISTORICAL) Left 09/15/2021 LEFT UPPER ARM HX AV FISTULA CREATION IR EMBOLIZATION 10/14/2024 IR EMBOLIZATION 10/14/2024 [facility] SPECIAL PROCEDURES IR FISTULAGRAM 08/07/2022 IR FISTULAGRAM 08/07/2022 [facility] IR IMAGING TONSILLECTOMY (HISTORICAL) FAMILY [...] Medication Sig Dispense Refill epoetin rowan-epbx (Retacrit) 58345 UNIT/ML injection Inject 0.79 mL (7,900 Units) [...] to follow Recommend to follow up at [facility] Outpatient wound care center after [...] 4:05 PM EDT documented in this encounter [facility] 01-19-2025 History and physical [...] diverticulosis, IgA nephropathy, severe that presented to [facility] ED from a facility due to trach dislodgement. Per patient, was trying to disconnect his vent to transfer to another room but accidentally pulled out his tracheostomy. This event happened approximately 45 minutes before ED arrival. ED attempted to place tracheostomy tube back but were unsuccessful. Decision was made to transfer patient to [facility] ICU for further airway management [...] History: Diagnosis Date Acute renal failure (ARF) ([facility]) 10/19/2019 Anemia 12/30/2021 Calcification of abdominal aorta ([facility]) 10/08/202309/[address] abd Diverticulosis 10/08/2023 ESRD on hemodialysis ([facility]) ([facility]) 10/26/2019 Hemodialysis patient ([facility]) ([facility]) HTN (hypertension) 12/01/2022 Hypertension IgA nephropathy IgA nephropathy determined by biopsy of kidney 10/26/2019 Missed vaccination due to patient refusal 10/08/2023 Has a number of non-scientific based beliefs which interfere with his understanding and acceptance of the medical benefit of vaccination. Nonrheumatic aortic valve stenosis 10/08/2023 Paroxysmal A-fib ([facility]) ([facility]) 08/18/2023 Tobacco abuse 10/08/2023 Past Surgical History: Procedure Laterality Date APPENDECTOMY CARDIAC CATHETERIZATION N/A 10/09/2024 Performed by Bob Watson MD at [facility] Cardiac Cath/EP Lab CARDIAC CATHETERIZATION Bilateral 11/01/2024 Performed by Bob Watson MD at [facility] Cardiac Cath/EP Lab CARDIAC CATHETERIZATION N/A 11/01/2024 Performed by Bob Watson MD at [facility] Cardiac Cath/EP Lab FISTULAGRAM (HISTORICAL) Left 09/15/2021 LEFT UPPER ARM HX AV FISTULA CREATION IR EMBOLIZATION 10/14/2024 IR EMBOLIZATION 10/14/2024 [facility] SPECIAL PROCEDURES IR FISTULAGRAM 08/07/2022 IR FISTULAGRAM 08/07/2022 [facility] IR IMAGING TONSILLECTOMY (HISTORICAL) Family [...] Patient Unable To Answer (12/01/2024) Received from [facility] Overall Financial Resource Strain (CARDIA) Difficulty of Paying Living Expenses: Patient unable to answer Food Insecurity: Patient Unable To Answer (12/01/2024) Received from [facility] Hunger Vital Sign Worried About Running Out of Food in the Last Year: Patient unable to answer Ran Out of Food in the Last Year: Patient unable to answer Transportation Needs: No Transportation Needs (01/18/2025) Received from [facility] Transportation Source Has lack of transportation kept you from medical appointments or from getting medications?: No Has lack of transportation kept you from meetings, work, or from getting things needed for daily living?: No Physical Activity: Not on file Stress: No Stress Concern Present (01/18/2025) Received from [facility] of Occupational Health - Occupational Stress Questionnaire Feeling of Stress : Not at all Social Connections: Patient Unable To Answer (12/01/2024) Received from [facility] Social Connection and Isolation Panel [NHANES] Frequency of Communication with Friends and Family: Patient unable to answer Frequency of Social Gatherings with Friends and Family: Patient unable to answer Attends [employer] Services: Patient unable to answer Active Member [...] to assess Physical Abuse: Unable to assess [facility] Domestic Abuse - Type of Abuse: Not on file [facility] Domestic Abuse - Time Frame: Not on file [facility] Domestic Abuse - Signs and Symptoms: Not on file Verbal Abuse: Unable to assess [facility] Domestic Abuse - Reported To: Not on file Housing Stability: Patient Unable To Answer (12/01/2024) Received from [facility] Housing Stability Vital Sign Unable to Pay for Housing in the Last Year: Patient unable to answer Number of Times Moved in the Last Year: 0 Homeless in the Last Year: Patient unable to answer Allergies Allergen Reactions Lisinopril Swelling and Angioedema Prior to Admission medications Medication Sig Start Date End Date Taking? Authorizing Provider epoetin rowan-epbx (Retacrit) 91832 UNIT/ML injection Inject 0.79 mL (7,900 Units) [...] Normal [] Scar/Lesion/Mass Inspection of teeth/lips/gums Dentition: [][place] Teeth []Dentures Lips/Gums: []Intact []Lesion Present Mucosa: [][address] []Moist []Dry Neck: External Appearance Tracheostomy hole [...] 18.5* ABGs: No results for input(s): "PHART", "XLT8REA", "PO2ART", "IFB5UHF", "SO2ART", "D4FPIXIV" in the last 72 hours. Lactic Acid: [...] PM EDT I have personally performed a [id number] diagnostic evaluation on this patient on date [...] 10/12/24: s/p AVR (23mm [facility] [place] mechanical), GY with Dr. Montemayor 10/14/24: s/p PEA [facility]rest [facility] He was progressing with QUALITY IMPROVEMENT MANAGER and using a PMV. Has not done any capping trials. Was transferred to a facility in [place]; there he inadvertently dislodged his tracheostomy. He initially presented to the [facility] emergency dept. He was transferred to [facility] in case of emergetn airway compromise. Assessment: Trach dislodgement, high risk of respiratory failure Chronic respiratory failure due to failure of airway protection ESRD Sacral osteomyelitis s/p AVR Full Code Plan: Admit to MICU Close monitorign for airway compromise Restart abx for osteomyelitis QUALITY IMPROVEMENT MANAGER viktoriaal; [facility] Critical Care Time: 33 minutes Total critical care time caring for this patient with life threatening, unstable organ failure, including direct patient contact, management of life support systems, review of data including imaging and labs, discussions with other team members and physicians, excluding procedures. Electronically signed by Bruce Nguyen MD documented in this encounter [facility] 01-19-2025 Emergency department Note [...] who [facility] department [facility] for [facility] dislodgment of his tracheostomy [...] nephropathy, hypertension, and currently being treated at [facility] with IV antibiotics for multiple infected [...] History: Diagnosis Date Acute renal failure (ARF) ([facility]) 10/19/2019 Anemia 12/30/2021 Calcification of abdominal aorta ([facility]) 10/08/202309/[address] abd Diverticulosis 10/08/2023 ESRD on hemodialysis ([facility]) ([facility]) 10/26/2019 Hemodialysis patient ([facility] ([facility]) HTN (hypertension) 12/01/2022 Hypertension IgA nephropathy IgA nephropathy determined by biopsy of kidney 10/26/2019 Missed vaccination due to patient refusal 10/08/2023 Has a number of non-scientific based beliefs which interfere with his understanding and acceptance of the medical benefit of vaccination. Nonrheumatic aortic valve stenosis 10/08/2023 Paroxysmal A-fib ([facility]) ([facility]) 08/18/2023 Tobacco abuse 10/08/2023 SURGICAL HISTORY Past Surgical History: Procedure Laterality Date APPENDECTOMY CARDIAC CATHETERIZATION N/A 10/09/2024 Performed by Bob Watson MD at [facility] Cardiac Cath/EP Lab CARDIAC CATHETERIZATION Bilateral 11/01/2024 Performed by Bbo Watson MD at [facility] Cardiac Cath/EP Lab CARDIAC CATHETERIZATION N/A 11/01/2024 Performed by Bob Watson MD at [facility] Cardiac Cath/EP Lab FISTULAGRAM (HISTORICAL) Left 09/15/2021 LEFT UPPER ARM HX AV FISTULA CREATION IR EMBOLIZATION 10/14/2024 IR EMBOLIZATION 10/14/2024 [facility] SPECIAL PROCEDURES IR FISTULAGRAM 08/07/2022 IR FISTULAGRAM 08/07/2022 [facility] IR IMAGING TONSILLECTOMY (HISTORICAL) CURRENT MEDICATIONS Previous Medications EPOETIN ROWAN-EPBX (RETACRIT) 38519 UNIT/ML INJECTION Inject 0.79 mL (7,900 Units) [...] No Stress Concern Present (01/18/2025) Received from [facility] of Occupational Health - Occupational Stress Questionnaire Feeling of Stress : Not at all Social Connections: Patient Unable To Answer (12/01/2024) Received from [facility] Medical Social Connection and Isolation Panel [NHANES] Frequency of Communication with Friends and Family: Patient unable to answer Frequency of Social Gatherings with Friends and Family: Patient unable to answer Attends [employer] Services: Patient unable to answer Active Member [...] nursing note reviewed. Exam conducted with a dewaterer operator present. Constitutional: General: He is not [...] accidental dislodgment [facility] tube [facility] as described in the HPI. Reportedly [...] necessary. Dr. Ponce recommended ICU admission to [facility] for observation with possible replacement tracheostomy if needed. ICU at [facility] was consulted and I spoke with Dr. Nguyen regarding admission to their service. He agrees with this indication and patient admitted to [facility] ICU. Diagnoses as of 01/19/25 0300 [...] No FINAL IMPRESSION 1. Complication of tracheostomy ([facility] ([facility]) DISPOSITION Admit 01/19/2025 03:00:18 AM PATIENT REFERRED [...] 01/19/25 0301 Pt arrived [facility] from [facility]. Pt removed his trach which he is typically on 5L. 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 He is NPO and receiving IV antibiotics for the results of his blood cultures. Pt was recently transferred to [place] from [facility]. Pt arrived with a pressure of 88/52 and 96% on room air. RT and MD at bedside upon arrival. documented in this encounter [facility] 01-18-2025 History of Presen t illness Narrative [facility] billing documented in this encounter [facility] 01-17-2025 History of Presen t illness Narrative Seen at [facility] documented in this encounter [facility] 01-17-2025 History of Presen t illness Narrative [facility] documented in this encounter [facility] 01-16-2025 History of Presen t illness Narrative [facility] documented in this encounter [facility] 01-15-2025 History of Presen t illness Narrative Seen at [facility] documented in this encounter [facility] 01-15-2025 History of Presen t illness Narrative [facility] documented in this encounter [facility] 01-14-2025 History of Presen t illness Narrative [facility] documented in this encounter [facility] 01-12-2025 History of Presen t illness Narrative [facility] documented in this encounter [facility] 01-12-2025 History of Presen t illness Narrative Seen at [facility] documented in this encounter [facility] 01-11-2025 History of Presen t illness Narrative [facility] documented in this encounter [facility] 01-11-2025 History of Presen t illness Narrative Seen at [facility] documented in this encounter [facility] 01-10-2025 History of Presen t illness Narrative [facility] documented in this encounter [facility] 01-09-2025 History of Presen t illness Narrative [facility] documented in this encounter [facility] 01-09-2025 History of Presen t illness Narrative Seen at [facility] documented in this encounter [facility] 01-08-2025 History of Presen t illness Narrative [facility] documented in this encounter [facility] 01-08-2025 History of Presen t illness Narrative Seen at [facility] documented in this encounter [facility] 01-05-2025 History of Presen t illness Narrative [facility] Documentation including history, exam and plan documented in [facility] EMR. This encounter is for billing only. documented in this encounter [facility] 01-05-2025 History of Presen t illness Narrative [facility] 01/05 documented in this encounter [facility] 01-04-2025 History of Presen t illness Narrative Patient seen by me at [facility]. Documentation including history, exam and plan documented in [facility] EMR. This encounter is for billing only. documented in this encounter [facility] 01-04-2025 History of Presen t illness Narrative [facility] 01/04 documented in this encounter [facility] 01-03-2025 History of Presen t illness Narrative Patient seen by me at [facility]. Documentation including history, exam and plan documented in [facility] EMR. This encounter is for billing only. documented in this encounter [facility] 01-03-2025 History of Presen t illness Narrative Pt seen at [facility]. Complete documentation under [facility]'s EMR. documented in this encounter [facility] 01-02-2025 History of Presen t illness Narrative Pt seen at [facility]. Complete documentation under [facility]'s EMR. documented in this encounter [facility] 01-02-2025 History of Presen t illness Narrative Patient seen by me at [facility]. Documentation including history, exam and plan documented in [facility] EMR. This encounter is for billing only. documented in this encounter [facility] 01-01-2025 History of Presen t illness Narrative Pt seen at [facility]. Complete documentation under [facility]'s EMR. documented in this encounter [facility] 01-01-2025 History of Presen t illness Narrative Patient seen by me at [facility]. Documentation including history, exam and plan documented in [facility] EMR. This encounter is for billing only. documented in this encounter [facility] 01-01-2025 History of Presen t illness Narrative Subsequent visit today at [facility] documented in this encounter [facility] 12-30-2024 History of Presen t illness Narrative Pt seen at [facility]. Complete documentation under [facility] EMR. documented in this encounter [facility] 12-28-2024 History of Presen t illness Narrative Patient seen by me at [facility]. Complete documentation including history with assessment and plan were documented in [facility] EMR. This encounter is for billing only. documented in this encounter [facility] 12-27-2024 History of Presen t illness Narrative Patient seen by me at [facility]. Complete documentation including history with assessment and plan were documented in [facility] EMR. This encounter is for billing only. documented in this encounter [facility] 12-26-2024 History of Presen t illness Narrative Patient seen by me at [facility]. Complete documentation including history with assessment and plan were documented in [facility] EMR. This encounter is for billing only. documented in this encounter [facility] 12-22-2024 History of Presen t illness Narrative Patient seen by me at [facility] in [place]. Complete documentation including history with assessment and plan were documented in [facility] EMR. This encounter is for billing only. documented in this encounter [facility] 12-21-2024 History of Presen t illness Narrative Patient seen by me at [facility] in [place]. Complete documentation including history with assessment and plan were documented in [facility] EMR. This encounter is for billing only. documented in this encounter [facility] 12-20-2024 History of Presen t illness Narrative Patient seen by mi at [facility] in [place]. Complete documentation including history with assessment and plan were documented in [facility] EMR. This encounter is for billing only. documented in this encounter [facility] 12-19-2024 History of Presen t illness Narrative Patient seen by me at [facility] in [place]. Complete documentation including history with assessment and plan were documented in [facility] EMR. This encounter is for billing only. documented in this encounter [facility] 12-18-2024 History of Presen t illness Narrative Patient seen by me at [facility] in [place]. Complete documentation including history with assessment and plan were documented in [facility] EMR. This encounter is for billing only. documented in this encounter [facility] 12-15-2024 History of Presen t illness Narrative [facility] billing documented in this encounter [facility] 12-14-2024 History of Presen t illness Narrative [facility] billing documented in this encounter [facility] 12-14-2024 Telephone encount er Note Patient is still at [facility]. I spoke to Karla, case coordinator, and she stated that patient has a tentative discharge date on 12/25. He will be going to a facility after that. Karla is not sure which one. I will check back with her closer to that date. [facility] 12-14-2024 Miscellaneous Notes Formattin g of this note might be different from the original. Patient is still at [facility]. I spoke to Karla, case coordinator, and she stated that patient has a tentative discharge date on 12/25. He will be going to a facility after that. Karla is not sure which one. I will check back with her closer to that date. Called and spoke with patients son to discuss scheduling hospital follow up appointment. Omar advised me that the patient will be in the hospital shelter as a lot happened while he was hospitalized. Patient does not wish to schedule at this time. Thanks Attempted to call patient to schedule hospital follow up. Patients phone is restricted. Unable to lvm. Sent [employer] message. Thanks Will hold to contact patient s/p discharge. Thanks Pt remains admitted at this time. GI staff to contact pt for scheduling OV s/p discharge. Patient needs close follow up for repeat EGD for duodenal ulcer, had IR embolization of GDA. Currently in ICU. Thanks. documented in this encounter [facility] 12-13-2024 History of Presen t illness Narrative [facility] billing documented in this encounter [facility] 12-13-2024 Telephone encount er Note Called and spoke with patients son to discuss scheduling hospital follow up appointment. Omar advised me that the patient will be in the hospital edge roller as a lot happened while he was hospitalized. Patient does not wish to schedule at this time. Thanks [facility] 12-13-2024 Miscellaneous Notes Formattin g of this note might be different from the original. Called and spoke with patients son to discuss scheduling hospital follow up appointment. Omar advised me that the patient will be in the hospital shelter as a lot happened while he was hospitalized. Patient does not wish to schedule at this time. Thanks Attempted to call patient to schedule hospital follow up. Patients phone is restricted. Unable to lvm. Sent [employer] message. Thanks Will hold to contact patient s/p discharge. Thanks Pt remains admitted at this time. GI staff to contact pt for scheduling OV s/p discharge. Patient needs close follow up for repeat EGD for duodenal ulcer, had IR embolization of GDA. Currently in ICU. Thanks. documented in this encounter [facility] 12-12-2024 History of Presen t illness Narrative [facility] documented in this encounter [facility] 12-11-2024 History of Presen t illness Narrative Seen at [facility] 12/11/24 documented in this encounter [facility] 12-11-2024 History of Presen t illness Narrative [facility] documented in this encounter [facility] 12-11-2024 Telephone encount er Note Attempted to call patient to schedule hospital follow up. Patients phone is restricted. Unable to lvm. Sent MyChart message. Thanks [facility] 12-11-2024 Miscellaneous Notes Formattin [...] in ICU. Thanks. documented in this encounter [facility] 12-07-2024 History of Presen t illness Narrative [facility] documented in this encounter [facility] 12-07-2024 History of Presen t illness Narrative [facility] 12/07/24 documented in this encounter [facility] 12-06-2024 History of Presen t illness Narrative [facility] documented in this encounter [facility] 12-06-2024 History of Presen t illness Narrative [facility] 12/06/24 documented in this encounter [facility] 12-05-2024 History of Presen t illness Narrative [facility] documented in this encounter [facility] 12-04-2024 History of Presen t illness Narrative Follow-up visit today at [facility] documented in this encounter [facility] 12-04-2024 History of Presen t illness Narrative [facility] 12/04/24 documented in this encounter [facility] 12-01-2024 History of Presen t illness Narrative [facility] 12/01/24 documented in this encounter [facility] 12-01-2024 History of Presen t illness Narrative I did a level 4 consult on this patient [facility]. In reviewing Dr. Garcia's note she noted acute systolic right heart failure related to and accompanied by pulmonary hypertension. She noted the need for midodrine. Dr. Chow waited on atrial flutter and atrial tachycardia. He was put on amiodarone and attempt was YG cardioversion, unsuccessful. The last electrocardiogram done at the [facility] showed atrial flutter. documented in this encounter [facility] 12-01-2024 History of Presen t illness Narrative [facility] documented in this encounter [facility] 11-30-2024 History of Presen t illness Narrative [facility] documented in this encounter [facility] 11-30-2024 History of Presen t illness Narrative [facility] 11/30/24 documented in this encounter [facility] 11-29-2024 History of Presen t illness Narrative [facility] 11/29/24 documented in this encounter [facility] 11-29-2024 History of Presen t illness Narrative [facility] documented in this encounter [facility] 11-28-2024 Telephone encount er Note Name of Caller: Herminia Contact Physician requesting Consult: Huseyin Caruso APRN Patient Location (facility name, room, bed number): [facility], 116 Patient Diagnosis/Reason for Consult:SOB Provider being paged: Dr Nathan Time page was sent: [phone] Department of provider being paged: [facility] Page Content: routine consult requested. Message sent via Secure Chat [facility] 11-28-2024 Miscellaneous Notes Formattin g of this note might be different from the original. Name of Caller: Herminia Contact Physician requesting Consult: Huseyin Caruso APRN Patient Location (facility name, room, bed number): [facility], 116 Patient Diagnosis/Reason for Consult:SOB Provider being paged: Dr Nathan Time page was sent: [phone] Department of provider being paged: [facility] Page Content: routine consult requested. Message sent via Secure Chat documented in this encounter [facility] 10-17-2024 Telephone encount er Note Will hold to contact patient s/p discharge. Thanks [facility] 10-17-2024 Miscellaneous Notes Formattin [...] in ICU. Thanks. documented in this encounter [facility] 10-17-2024 Miscellaneous Notes Formattin g of this note might be different from the original. Will hold to contact patient s/p discharge. Thanks Pt remains admitted at this time. GI staff to contact pt for scheduling OV s/p discharge. Patient needs close follow up for repeat EGD for duodenal ulcer, had IR embolization of GDA. Currently in ICU. Thanks. documented in this encounter [facility] 10-17-2024 Telephone encount er Note Pt remains admitted at this time. GI staff to contact pt for scheduling OV s/p discharge. [facility] 10-16-2024 Telephone encount er Note Patient needs close follow up for repeat EGD for duodenal ulcer, had IR embolization of GDA. Currently in ICU. Thanks. [facility] Work Phone: 10-16-2024 Miscellaneous Notes Formattin g of this note might be different from the original. Patient needs close follow up for repeat EGD for duodenal ulcer, had IR embolization of GDA. Currently in ICU. Thanks. documented in this encounter [facility] 10-12-2024 Note Formatting of this n ote is different from the original. Patient: Jair Snyder Procedure Summary Date: 10/12/24 Room / Location: [address] Operating Room Anesthesia Start: 725 Anesthesia Stop: 112 Procedures: AORTIC VALVE REPLACEMENT [...] once all PACU criteria has been met. [facility] 10-12-2024 Miscellaneous Notes Formattin g of this note is different from the original. Patient: Jair Snyder Procedure Summary Date: 10/12/24 Room / Location: [address] Operating Room Anesthesia Start: 725 Anesthesia [...] has been met. documented in this encounter [facility] 10-12-2024 Anesthesiology Postoperative evaluation and management note Patient: Jair Snyder Procedure Summary Date: 10/12/24 Room / Location: [facility] Operating Room Anesthesia Start: 725 Anesthesia [...] opportunity for questions and acknowledgement of understanding. [employer] Phone: 10-12-2024 Surgical operatio n note Patient: Jair Snyder Procedure Summary Date: 10/12/24 Room / Location: [facility] Operating Room Anesthesia Start: 725 Anesthesia [...] during the procedure: no complications. Staffing Performed: MANAGER EMS Resident/MANAGER EMS: Rudolph German CRNA Associated Order(s): Airway Airway Date/Time: 10/12/2024 7:38 AM Urgency: scheduled Airway not difficult General Information and Staff Patient location during procedure: Procedural Anesthesiologist: Vincent Wilson MD Resident/MANAGER EMS: Rudolph German CRNA Performed: anesthesiologist Indications and [...] well with no complications. Staffing Performed: DECLAN Resident/MANAGER EMS: Rudolph German CRNA Patient: Jair Snyder Procedure Information Date/Time: 10/12/24 7530 Procedures: AORTIC VALVE REPAIR, POSSIBLE REPLACEMENT (Chest) - 7:30 am, 5 hours TRICUSPID REPLACEMENT WITH RING (Chest) TRANSESOPHAGEAL ECHOCARDIOGRAM Location: [facility] [address] [place] [address] Operating Room Surgeons: Luciano Montemayor MD Relevant Problems Cardio (+) Aortic stenosis (+) Atrial flutter, unspecified type ([facility]) (+) Calcification of abdominal aorta ([facility]) (+) HTN (hypertension) (+) Nonrheumatic aortic valve stenosis (+) Paroxysmal A-fib ([facility]/HCC) ([facility]) GI (+) Diverticulosis /Renal (+) ESRD on hemodialysis ([facility]) ([facility]) (+) IgA nephropathy determined by biopsy of kidney Past Medical History: Past Medical History: 10/19/2019: Acute renal failure (ARF) ([facility]) 12/30/2021: Anemia 10/08/2023: Calcification of abdominal aorta ([facility]) Comment: 09/[address] abd 10/08/2023: Diverticulosis 10/26/2019: ESRD on hemodialysis ([facility]) ([facility]) No date: Hemodialysis patient ([facility]) ([facility]) 12/01/2022: HTN (hypertension) No date: Hypertension No date: IgA nephropathy 10/26/2019: IgA nephropathy determined by biopsy of kidney 10/08/2023: Missed vaccination due to patient refusal Comment: Has a number of non-scientific based beliefs which interfere with his understanding and acceptance of the medical benefit of vaccination. 10/08/2023: Nonrheumatic aortic valve stenosis 08/18/2023: Paroxysmal A-fib ([facility]) ([facility]) 10/08/2023: Tobacco abuse Past Surgical History: Past Surgical History: No date: APPENDECTOMY 10/09/2024: CARDIAC CATHETERIZATION; N/A Comment: Performed by Bob Watson MD at [facility] Cardiac Cath/EP Lab 09/15/2021: FISTULAGRAM (HISTORICAL); Left Comment: LEFT UPPER ARM No date: HX AV FISTULA CREATION 08/07/2022: IR FISTULAGRAM Comment: IR FISTULAGRAM 08/07/2022 [facility] IR IMAGING No date: TONSILLECTOMY [...] Additional Equipment Requests documented in this encounter [facility] 10-12-2024 Procedure anesthe jaki Narrative [...] Placement Date: 08/17/23; Placement Time: 1107 08/17/23 110 by Jayesh Sotomayor RN Wound/Incision 10/09/24; 033; Othe r (puncture heart cath); Leg; Anterior, Proximal, Right, Upper; right groin puncture 10/09/24 033 by Keyla Jon RN Introducer Placement Date: [...] Time: 1319 10/12/24 0738 by Rudolph German, DECLAN 10/12/24 1319 by Darryn Naik RCP Pulmonary [...] Hunter Dove RN documented in this encounter [facility] [id number] Anesthesiology procedure note* Anesthesia Procedure Notes - [...] during the procedure: no complications. Staffing Performed: MANAGER EMS Resident/MANAGER EMS: Rudolph German CRNA [facility]01-16-2025 Anesthesiology procedure note* Anesthesia Procedure Notes - Rudolph German CRNA - 10/12/2024 7:49 AM ESTAssociated Order(s): Airway Airway Date/Time: 10/12/2024 7:38 AM Urgency: scheduled Airway not difficult General Information and Staff Patient location during procedure: Procedural Anesthesiologist: Vincent Wilson MD Resident/MANAGER EMS: Rudolph German CRNA Performed: anesthesiologist Indications and [...] of attempts at approach: 1 [facility]01-16-2025 Anesthesiology procedure note* Anesthesia Procedure [...] procedure well with no complications. Staffing Performed: MANAGER EMS Resident/MANAGER EMS: Rudolph German CRNA [facility] [id number] Anesthesiology Preoperative evaluation and management note* Anesthesia Preprocedure Evaluation - Vincent Wilson MD - 10/12/2024 6:56 AM EST Patient: Jair Snyder Procedure Information Date/Time: 10/12/24 0730 Procedures: AORTIC VALVE REPAIR, POSSIBLE REPLACEMENT (Chest) - 7:30 am, 5 hours TRICUSPID REPLACEMENT WITH RING (Chest) TRANSESOPHAGEAL ECHOCARDIOGRAM Location: [facility] [address] [place] [address] Operating Room Surgeons: Luciano Montemayor MD Relevant Problems Cardio (+) Aortic stenosis (+) Atrial flutter, unspecified type (HCC) (+) Calcification of abdominal aorta (HCC) (+) HTN (hypertension) (+) Nonrheumatic aortic valve stenosis (+) Paroxysmal A-fib (CMS/HCC) (HCC) GI (+) Diverticulosis /Renal (+) ESRD on hemodialysis (CMS/HCC) ([facility]) (+) IgA nephropathy determined by biopsy of kidney Past Medical History: Past Medical History: 10/19/2019: Acute renal failure (ARF) ([facility]) 12/30/2021: Anemia 10/08/2023: Calcification of abdominal aorta ([facility]) Comment: 09/[address] abd 10/08/2023: Diverticulosis 10/26/2019: ESRD on hemodialysis (CMS/HCC) ([facility]) No date: Hemodialysis patient (CMS/HCC) ([facility]) 12/01/2022: HTN (hypertension) No date: Hypertension No date: IgA nephropathy 10/26/2019: IgA nephropathy determined by biopsy of kidney 10/08/2023: Missed vaccination due to patient refusal Comment: Has a number of non-scientific based beliefs which interfere with his understanding and acceptance of the medical benefit of vaccination. 10/08/2023: Nonrheumatic aortic valve stenosis 08/18/2023: Paroxysmal A-fib (CMS/HCC) ([facility]) 10/08/2023: Tobacco abuse Past Surgical History: Past Surgical History: No date: APPENDECTOMY 10/09/2024: CARDIAC CATHETERIZATION; N/A Comment: Performed by Bob Watson MD at [facility] Cardiac Cath/EP Lab 09/15/2021: FISTULAGRAM (HISTORICAL); Left Comment: LEFT UPPER ARM No date: HX AV FISTULA CREATION 08/07/2022: IR FISTULAGRAM Comment: IR FISTULAGRAM 08/07/2022 [facility] IR IMAGING No date: TONSILLECTOMY [...] 10:45 AM Equipment Requests: Additional Equipment Requests [facility] [id number] History of Present illness Narrative* Jr Shah MD - 08/28/2024 3:15 PM EST Images from the original note were not included. [facility] - [address] [facility] [address] Dept: [phone] Dept Visit type: Established : 1965 Reason [...] months (around 02/26/2025) for [facility] f/u in [place]. Subjective Afib after admission 07/2023. ESRD on [...] On theother hand, a mechanical valve with edge roller OAC carries its own risks with a [...] none/quit. Pt would like to f/u in [place]. Was concerned about location and level of [...] History: Diagnosis Date Acute renal failure (ARF) ([facility]) 10/19/2019 Anemia 12/30/2021 Calcification of abdominal aorta ([facility]) 10/08/202309/[address] abd Diverticulosis 10/08/2023 ESRD on hemodialysis ([facility]) ([facility]) 10/26/2019 Hemodialysis patient ([facility]) ([facility]) HTN (hypertension) 12/01/2022 Hypertension IgA nephropathy IgA [...] medical care for thiscondition(s). documented in this [facility]12-02-2024 Evaluation + Plan note* Assessment & Plan Note - Jr Shah MD - 08/28/2024 1:07 PM EST Associated Problem(s): Alcohol use disorder in remission Says he is a "functioning alcoholic". Stopping drinking in 2019. -Recommend stay quit due to addiction and risk of bleeding. [facility] [id number] Evaluation + Plan note* Assessment & Plan Note - Jr Shah MD - 08/28/2024 1:07 PM ESTAssociated Problem(s): Tobacco abuse 1 ppd. Recommend complete cessation. -Recommend CT lung cancer screening. [facility] [id number] Miscellaneous Notes* Assessment & Plan Note - [...] ablation, watchman device, etc. documented in this [facility]12-02-2024 Evaluation + Plan note* Assessment [...] which will need to be carefully considered. [facility] [id number] Evaluation + Plan note* Assessment & Plan [...] see EP, discuss ablation, watchman device, etc. [facility] [id number] History of Present illness Narrative* Alan Barroso RN - 05/10/2024 2:38 PM EDT Dialysis center status inquiry form received from [facility]. Form completed and faxed back to ELIA Marin at [phone]. Patient was called 04/12/2024 but voicemail was full, letter was sent to please call the office at [phone] to complete intake. Referral was closed. Please have patient call the office to complete intake. JHONY Meier RN May 10, 2024 2:41 PM [facility] Telephone encounter Note * Telephone Encounter - Lanie Luis - 04/12/2024 11:49 AM EDT I called patient to start the kidney referral intake process. Voicemail is full, sent a letter out. Lanie [facility]07-17-2024 Miscellaneous Notes* Telephone Encounter - Lanie Luis - 04/12/2024 11:49 AM EDT I called patient to start the kidney referral intake process. Voicemail is full, sent a letter out. Lanie [facility] Telephone encounter Note * Telephone Encounter - Tracie Chin RN - 02/14/2024 10:23 AM EDT Called LM with pt with central scheduling number. Advised to call to schedule echo. [facility] [id number] Miscellaneous Notes* Telephone Encounter - Tracie Chin RN - 02/14/2024 10:23 AM EDT Called LM with pt with central scheduling number. Advised to call to schedule echo. * Telephone Encounter - Dorcas Pabon - 02/12/2024 10:28 AM EDT Unable to contact patient - called and lvm and sent mychart message for echo [facility] documented in this encounterSSt. John of God [id number] Telephone encounter Note* Telephone Encounter - Dorcas Pabon - 02/12/2024 10:28 AM EDT Unable to contact patient - called and lvm and sent mychart message for echo [facility]erred [facility] [id number] Miscellaneous Notes* Telephone Encounter - Dorcas Pabon - 02/12/2024 10:28 AM EDT Unable to contact patient - called and lvm and sent mychart message for echo [facility] documented in this [facility]05-18-2024 Telephone encounter Note* Telephone Encounter - Dorcas Pabon - 02/12/2024 10:23 AM EDT Unable to contact patient to schedule CT lung screening - called and sent mychart message [facility] [id number] Miscellaneous Notes* Telephone Encounter - Dorcas Pabon - 02/12/2024 10:23 AM EDT Unable to contact patient to schedule CT lung screening - called and sent mychart message [facility] documented in this [facility]02-16-2024 Evaluation + Plan note* Assessment & Plan Note - DENIA Dumont CNP - 11/12/2023 4:50 PM EST Associated Problem(s): Tobacco abuse 1 ppd. Recommend complete cessation. Consider CT lung cancer screening. [facility] [id number] Miscellaneous Notes* Assessment & Plan Note - [...] than just dialysis days. documented in this [facility]02-16-2024 Evaluation + Plan note* Assessment & Plan Note - DENIA Dumont CNP - 11/12/2023 4:48 PM EST Associated Problem(s): Calcification of abdominal aorta (HCC) Sep 2023, by chart review this is the only ASCVD finding. Utility of lipid- lowering agent controversial in ESRD and does not appear to be improved with moderate intensity statins. -expectant mgt [facility] [id number] Evaluation + Plan note* Assessment & Plan Note - DENIA Dumont CNP - 11/12/2023 4:48 PM ESTAssociated Problem(s): HTN (hypertension) Goal BP < 130/80 mmHg. BP today in office borderline. -continues on toprol XL -mgt per PCP and renal [place] [id number] Evaluation + Plan note* Assessment & Plan [...] cardiac intervention that he is open to. [facility] [id number] Evaluation + Plan note* Assessment & Plan [...] dose overall, rather than just dialysis days. [facility] [id number] History of Present illness Narrative* DENIA Dumont CNP - 11/12/2023 1:30 PM EST Images from the original note were not included. [facility] [address] [place] [address] [address] [facility] [address] Dept: [phone] Dept Loc: [phone] Visit type: Established : 1965 Reason for [...] he is open to. 2. Paroxysmal A-fib ([facility]) ([facility]) Assessment & Plan: Paroxysmal. Refer to Dr. [...] lung cancer screening. 6. ESRD on hemodialysis ([facility]) ([facility]) Follow up in about 6 months (around [...] the other hand, a mechanical valve with shelter OAC carries its own risks. Today: He [...] History: Diagnosis Date Acute renal failure (ARF) ([facility]) 10/19/2019 Anemia 12/30/2021 Calcification of abdominal aorta ([facility]) 10/08/202309/[address] abd Diverticulosis 10/08/2023 ESRD on hemodialysis ([facility]) ([facility]) 10/26/2019 Hemodialysis patient ([facility]) ([facility]) HTN (hypertension) 12/01/2022 Hypertension IgA nephropathy IgA nephropathy determined by biopsy of kidney 10/26/2019 Missed vaccination due to patient refusal 10/08/2023 Has a number of non-scientific based beliefs which interfere with his understanding and acceptance of the medical benefit of vaccination. Nonrheumatic aortic valve stenosis 10/08/2023 Paroxysmal A-fib ([facility]) ([facility]) 08/18/2023 Tobacco abuse 10/08/2023 Social History Tobacco [...] PM DENIA Dumont CNP documented in this encounterSSt. John of God [id number] Telephone encounter Note* Telephone Encounter - Sydni Rodrigues - 11/01/2023 9:41 AM EST Called pt lmom for a return call to set up appt [facility] CenterCfxkau00-69-0976 Miscellaneous Notes* Telephone Encounter - Sydni Rodrigues [...] 10/14/2023 7:58 AM EST Preferred contact number: [phone] Reason for Visit: Jun called in to cancel his appt this morning. He woke up and is very sick. Please contact him to reschedule. Urgency of Appointment: office visit documented in this encounterSSt. John of God HospitalJuzxlg28-02-3028 Telephone encounter Note* Telephone Encounter - Sydni Rodrigues - 10/18/2023 2:34 PM EST Called pt LMOM for a return call to set up appt [facility] [id number] Telephone encounter Note* Telephone Encounter - Sydni Rodrigues - 10/14/2023 8:56 AM EST Called pt LMOM for a return call to r/s appt [facility] [id number] Telephone encounter Note* Telephone Encounter - Regino Ortiz - 10/14/2023 7:58 AM EST Preferred contact number: [phone] Reason for Visit: Jun called in to cancel his appt this morning. He woke up and is very sick. Please contact him to reschedule. Urgency of Appointment: office visit [facility]11-27-2023 Telephone encounter Note* Telephone Encounter - Darya Payne - 08/23/2023 1:47 PM EST 2nd attempt to schedule, no answer, left message. [place] [id number] Miscellaneous Notes* Telephone Encounter - Darya Cotabritton - 08/23/2023 1:47 PM EST 2nd attempt to schedule, no answer, left message. * Telephone Encounter - Darya Cotabritton - 08/18/2023 2:13 PM EST Left message requesting a call back from the patient to schedule appointment. * Telephone Encounter - Darya Kerry - 08/18/2023 2:12 PM EST ----- Message from DENIA Dumont CNP sent at 08/18/2023 8:30 AM EST ----- Patient discharged from [facility]. Please assist with s/p hosp "TAYO," okay within the next ~week. Thanks! documented in this encounterSSt. John of God [id number] Telephone encounter Note* Telephone Encounter - Darya Cotabritton - 08/18/2023 2:13 PM EST Left message requesting a call back from the patient to schedule appointment. [facility] [id number] Telephone encounter Note* Telephone Encounter - Darya Kerry - 08/18/2023 2:12 PM EST ----- Message from DENIA Dumont CNP sent at 08/18/2023 8:30 AM EST ----- Patient discharged from [facility]. Please assist with s/p hosp "TAYO," okay within the next ~week. Thanks! [facility] [id number] Emergency department Note* Mary Ann Meraz RN - 08/17/2023 3:11 PM EST Patient education given in regard to medications, as well as following-up with PCP. Patient given eliquis information packet, understanding well. Mary Ann Meraz RN 08/17/231510 [facility] [id number] Emergency department Note* Mary Ann Meraz RN - 08/17/2023 3:11 PM EST Patient education given in regard to medications, as well as following-up with PCP. Patient given eliquis information packet, understanding well. Mary Ann Meraz RN 08/17/231510 * Dangelo Horne DO - 08/16/2023 6:16 PM EST Emergency Department Encounter [facility] ED Patient: Jun Snyder : [...] 08/16/2023 6:16 PM EST Emergency Department Encounter [facility] ED Patient: Jun Snyder : [...] facial drooping. No obvious neurologic deficits. Supervisor Painting Department strength symmetrical. Moves all 4 extremities spontaneously. [...] 364 ms QTC Interval 491 ms P Zwolle degrees QRS Zwolle 61 degrees T Wave Zwolle -20 degrees TX Interval ms Radiographs: XR chest 1 view Final Result 1. Cardiomegaly. 2. No other acute findings. Report Dictated on Electronically Signed By: Justo Milan MD Electronically Signed Date/Time: 08/16/2023 6:42 PM EST : EKG: All EKG's areinterpreted by the Emergency Department Physician in the absence of a baked goods stock clerk. see their note for interpretation of EKG. [...] for new onset A-fib. Patient excepted to [facility]. Final Diagnosis: 1. New onset a-fib (CMS/HCC) (HCC) Medications - No data to display Diagnoses as of 08/16/232129 New onset a-fib (CMS/HCC) ([facility]) CRITICAL CARE TIME CONSULTS: None PROCEDURES: Unless otherwise noted below, none Procedures DISPOSITION/PLAN Admit 08/16/2023 08:09:48 PM PATIENT REFERRED TO: No follow-up provider specified. DISCHARGE MEDICATIONS: New Prescriptions No medications on file @[facility]([id number]:LAST:1)@ (Please note: Portions of this note were completed with a voice recognition program. Efforts were made to edit the dictations but occasionally words and phrases are mis-transcribed.) Form [id number] Sha Granados PA-C [employer] Sha Granados PA-C 08/16/232129 documented in this [facility]11-21-2023 Hospital Discharge instructions* Discharge Instr - Other Orders* DENIA Lorenzo CNP - 08/17/2023 3:02 PM EST Please discontinue Labetalol and Caduet; see discharge medication list Next dialysis session is 08/18/23 as previously instructed * Attachments The following attachments cannot be sent through Care Everywhere. * Atrial Fibrillation (Vietnamese) * Going Home on Blood Thinners (Vietnamese) * Apixaban, ADULT (Vietnamese) documented in this [facility]11-21-2023 History of Present illness Narrative* [...] Past Medical History: Diagnosis Date Hemodialysis patient ([facility]/HCC) (HCC) Hypertension IgA nephropathy LABS: CBC: [...] Contact Information Primary Emergency Contact: LillianAlexx Address: [address] [place] [address] [address] [facility] Mobile Relation: Child DENIA Lorenzo CNP Division of Hospitalist Medicine Inpatient Medical Services/[facility] Comment: Please note this report has been [...] reflects time of documentation. documented in this [facility]11-21-2023 Consult note* Rj Villela MD - 08/17/2023 10:16 AM ESTAssociated Order(s): IP CONSULT TO CARDIOLOGY [facility] CARDIOLOGY CONSULTATION Patient Name: Jun Snyder [...] to left heart disease. Rj Villela M.D., F.A.CRomuloC. Date Puller Chief, Division of Cardiac Imaging Clinical Geoscience Technician, [facility] Data Collection Cardiac Testin08/16/23 ECG 12-LEAD [...] a past medical history of Hemodialysis patient ([facility]) (HCC), Hypertension, and IgA nephropathy. He has [...] alert. Psychiatric: Mood and Affect: Mood normal. [employer] Work Phone: 1(209) 971-646011-21-2023 Consult note* Rj Villela MD - 08/17/2023 10:16 AM ESTAssociated Order(s): IP CONSULT TO CARDIOLOGY [facility] CARDIOLOGY CONSULTATION Patient Name: Jun Snyder : [...] left heart disease. Rj Villela M.D., F.A.C.C. Date Puller Chief, Division of Cardiac Imaging Clinical Geoscience Technician, [employer] Data Collection Cardiac Testin08/16/23 ECG 12-LEAD 08/17/2023 [...] a past medical history of Hemodialysis patient ([facility]) (HCC), Hypertension, and IgA nephropathy. He has [...] and Affect: Mood normal. documented in this [facility]11-20-2023 History and physical note* Earlene Irving MD - 08/16/2023 8:38 PM EST Images from the original note were not included. History and Physical [facility] Jun Snyder : 1965 AGE 57 [...] WedAug 16, 2023 8:09 PM (Active) Physician Knife Setter Assembler: Sha Granados PA-C, starting on WedAug 16, [...] him When he was getting dialysis his economics faculty member detected irregular rhythm suspected A-fib and referred [...] Past Medical History: Diagnosis Date Hemodialysis patient ([facility]) (HCC) Hypertension IgA nephropathy Past Surgical History: Procedure Laterality Date APPENDECTOMY FISTULAGRAM (HISTORICAL) Left 09/15/2021 LEFT UPPER ARM HX AV FISTULA CREATION IR FISTULAGRAM 08/07/2022 IR FISTULAGRAM 08/07/2022 [facility] IR IMAGING TONSILLECTOMY (HISTORICAL) Allergies [...] 08/16/2023 364 QTC Interval 08/16/2023 491 QRS Zwolle 08/16/2023 61 T Wave Zwolle 08/16/2023 -20 SODIUM 08/16/2023 133 (L) POTASSIUM [...] QT Interval 364 QTC Interval 491 P Zwolle QRS Zwolle 61 T Wave Zwolle -20 TX Interval Impression ATRIAL FIBRILLATION, V-RATE 88-139 INCOMPLETE [...] Anticoagulation yet to be determined His current [id number] score would be 1 based upon history [...] to due risk bleed/procedure 08/16/2023 Jun Snyder [id number] Any scheduled follow up appointments No future appointments. Extended Emergency Contact Information Primary Emergency Contact: Alexx Snyder Address: [address] [place], [place] [id number] [place] Mobile Relation: Child Portions of this note may be electronically transcribed. Please forward a copy of this H&P to the primary care physician. [facility] [id number] History and physical note* Earlene Irving MD - 08/16/2023 8:38 PM EST Images from the original note were not included. History and Physical [facility] Jun Ayalaan : 1965 AGE 57 y.o. YEARS Note [...] WedAug 16, 2023 8:09 PM (Active) Physician Knife Setter Assembler: Sha Granados PA-C, starting on WedAug 16, [...] him When he was getting dialysis his economics faculty member detected irregular rhythm suspected A-fib and referred [...] Past Medical History: Diagnosis Date Hemodialysis patient ([facility]) (HCC) Hypertension IgA nephropathy Past Surgical History: [...] 08/16/2023 364 QTC Interval 08/16/2023 491 QRS Zwolle 08/16/2023 61 T Wave Zwolle 08/16/2023 -20 SODIUM 08/16/2023 133 (L) POTASSIUM [...] QT Interval 364 QTC Interval 491 P Zwolle QRS Zwolle 61 T Wave Zwolle -20 TX Interval Impression ATRIAL FIBRILLATION, V-RATE 88-139 INCOMPLETE [...] monitor him on telemetry asked cardiology to [facility] we will additionally request echocardiogram. He is not experiencing chest pain but he is a current smoker and I do not see a recent cardiac work-up in the computer EKG on admission did confirm atrial fibrillation but he is currently in sinus rhythm Anticoagulation yet to be determined His current [id number]-ENRy score would be 1 based upon history [...] to due risk bleed/procedure 08/16/2023 Jun Snyder [id number] Any scheduled follow up appointments No future appointments. Extended Emergency Contact Information Primary Emergency Contact: Adrian Snyderad Address: [address] [place] [address] of [place] Mobile Relation: Child Portions of this note may be electronically transcribed. Please forward a copy of this H&P to the primary care physician. documented in this [facility]11-20-2023 Physician Emergency department Note* Dangelo Horne, DO - 08/16/2023 6:16 PM EST Emergency Department Encounter [facility] ED Patient: Jun Snyder : [...] Horne DO 08/16/231922 Dangelo Horne DO 08/16/231957 [employer] Phone: 1(102) 132-910911-20-2023 Physician Emergency department Note* Sha Granados PA-C - 08/16/2023 6:16 PM EST Emergency Department Encounter [facility] ED Patient: Jun Snyder : [...] CREATION IR FISTULAGRAM 08/07/2022 IR FISTULAGRAM 08/07/2022 [facility] IR IMAGING TONSILLECTOMY (HISTORICAL) Social [...] facial drooping. No obvious neurologic deficits. Supervisor Painting Department strength symmetrical. Moves all 4 extremities spontaneously. [...] 364 ms QTC Interval 491 ms P Zwolle degrees QRS Zwolle 61 degrees T Wave Zwolle -20 degrees TX Interval ms Radiographs: XR chest 1 view Final Result 1. Cardiomegaly. 2. No other acute findings. Report Dictated on Electronically Signed By: Justo Milan MD Electronically Signed Date/Time: 08/16/2023 6:42 PM EST : EKG: All EKG's areinterpreted by the Emergency Department Physician in the absence of a baked goods stock clerk. see their note for interpretation of EKG. [...] for new onset A-fib. Patient excepted to [facility]. Final Diagnosis: 1. New onset a-fib (CMS/HCC) ([facility]) Medications - No data to display Diagnoses as of 08/16/232129 New onset a-fib (CMS/HCC) ([facility]) CRITICAL CARE TIME CONSULTS: None PROCEDURES: Unless otherwise noted below, none Procedures DISPOSITION/PLAN Admit 08/16/2023 08:09:48 PM PATIENT REFERRED TO: No follow-up provider specified. DISCHARGE MEDICATIONS: New Prescriptions No medications on file @[facility]([id number]:LAST:1)@ (Please note: Portions of this note were completed with a voice recognition program. Efforts were made to edit the dictations but occasionally words and phrases are mis-transcribed.) Form [id number] Sha Granados PA-C [facility] Sha Granados PA-C 08/16/232129 [facility]08-05-2023 Hospital Discharge instructions* Discharge Instructions* Jese Frank [...] petroleum jelly on it. documented in this [facility]08-05-2023 Emergency department Note* Jese Frank [...] ESRD (end stage renal disease) on dialysis ([facility]): complicated acute illness or injury Skin sore: [...] ESRD (end stage renal disease) on dialysis ([facility]) * No order type specified * MDM: [...] ESRD (end stage renal disease) on dialysis ([facility]) DISPOSITION/PLAN DISPOSITION Discharge 05/01/2023 08:15:56 PM PATIENT REFERRED TO: Daryn Loomis MD [address] [facility] [address] In 1 week [facility] [address] [place] [address] [address]ound [address] [address] I prescribed: New Prescriptions EMOLLIENT [...] occasionally. Patient was seen in [facility] a month ago for the same problem. Bed locked and low position, call light within reach. Patient has no further needs. documented in this [facility]08-05-2023 Emergency department Triage note* Sony [...] within reach. Patient has no further needs. [facility] [id number] Physician Emergency department Note* Jese Frank MD [...] ESRD (end stage renal disease) on dialysis ([facility]): complicated acute illness or injury Skin sore: [...] ESRD (end stage renal disease) on dialysis ([facility]) * No order type specified * MDM: [...] ESRD (end stage renal disease) on dialysis ([facility]) DISPOSITION/PLAN DISPOSITION Discharge 05/01/2023 08:15:56 PM PATIENT REFERRED TO: Daryn Loomis MD [address] [facility] [address] In 1 week [facility] [address] [place] [address] Wound Care [address] [address] I prescribed: New Prescriptions EMOLLIENT [...] MD (electronically signed) Jese Frank MD 05/01/232038 [facility] CenterPlprrd04-89-1803 Miscellaneous Notes* Telephone Encounter - Karly Fortune Pss - 01/01/2022 2:36 PM EDT I scheduled him w/ Dr. reid on WednesdayFebruary 16 and left him a detailed vm that I did. This is all have at [facility] bc we are in to March and jair needs a Wednesday or Wednesday bc of dialysis I am sorry, I don't have solution or advise for hospital schedule issues. Next best thing is to discuss with Naomi. May be when Dr. King or Marti come in for special cases to [facility], can this case beincluded at that time. Or if you cancel [facility] schedule and make room for me to come to [facility] any day I can get this done. Thanks! * Telephone Encounter - Karly Fortune Pss - 12/30/2021 10:36 AM EDT Antonio I had him scheduled for his colon w/ you for next WednesdayJanuary 05 but Peggy ramirez said he has to be done at [facility] bc of his hgb. I have no openings at [facility] and I don't know what to do Can you please let me know how to proceed. Thank you Eryn PS I NEED A NEW COLON ORDER FOR [facility] documented [facility] Miscellaneous Notes* Telephone Encounter - Karly Fortune [facility] - 12/30/2021 9:33 AM EDT Antonio Painter saw a patient the other day and he ordered him a colon for blood loss anemia I scheduled him for [facility] but his hgb is 6 so Charo wants him at [facility] . He is also on dialysisand could only do a Wednesday. All docs are booked until March You had a cancellation for next . Can I please put him w/ you? Thank you Eryn documented in this [facility]04-04-2022 Miscellaneous Notes* Telephone Encounter - Karly Fortune [facility] - 12/29/2021 4:18 PM EDT Antonio I know this patient saw Inocencio the other day as a new patient. I have him scheduled her and his hgb is 6 Could you please do an order for me? I have to get him on tayo Thanks Eryn documented in this encounterC[facility]03-31-2022 History of Present illness Narrative* Rudy [...] for internal providers or letter via the [employer] Postal Service for external providers. HPI: Jun [...] injury) (HCC) CKD (chronic kidney disease) Dialysis T/Th/Sat @ [facility], Home hemodialysis since 09/2019 Diverticulosis ESRD (end stage renal disease) (HCC) HTN (hypertension) Leukocytosis Normocytic anemia iron infusions PAST SURGICAL HISTORY Procedure Laterality Date ARTERIOVENOUS FISTULA Left 03/20/2020 Left forearm natural arteriovenous fistula radiocephalic. ARTERIOVENOUS FISTULA Left 06/12/2020 Creation of left brachiocephalic fistula. RENAL BIOPSY 09/2019 TONSILLECTOMY PRIMARY/SECONDARY <AGE 12 US ABD APPENDIX 1987 Allergies: ALLERGIES Allergen Reactions Lisinopril Swelling Medications: [...] 12/25/21 TIME: 3:56 PM documented in this [facility]01-31-2020 History of Present illness Narrative* Miracle Jaramillo RN - 10/27/2019 9:00 PM EST Patient left via wheelchair with family member. Pt left with all of documented belongings. * Blane Lei RN - 10/27/2019 2:30 PM EST Patient Name: Glenn Snyder Patient : 1965 Acct: [id number] Date of Admission: 10/19/2019 Room/Bed: [facility] Code Status: Full Code Allergies: Allergies Allergen [...] (Bicarb): 35 Na+ Modeling: Not Applicable Dialyzer: [id number] Dialysate Temperature (C): 36 Blood Flow Rate [...] - Before each treatment: Dialysis Machine No.: [id number] RO Machine No.: [id number] Dialyzer Lot No.: [id number] RO Machine Log Sheet Completed: Yes Machine Alarm Self Test: Completed;Passed (10/27/19 1410) Machine Autotest: Completed, Passed Air Foam Detector: Tested, Proper Function, pH Reading Extracorporeal Circuit Tested for Integrity: Yes Machine Conductivity: 13.9 Manual Conductivity: 13.7 Machine Ph: 7 Manual Ph: 7 Bleach Test (Neg): Yes Bath Temperature: 96.8 F (36 C) Tubing Lot#: [id number] Conductivity Meter Serial #: [id number] All Connections Secure?: Yes Venous Parameters Set?: [...] Pedraza MD - 10/27/2019 11:26 AM EST [facility] Progress Note SUBJECTIVE: Glenn Snyder [...] 9.0 9.2 Last 3 CBC: Recent Labs 10/25/1933710/26/19 0503 10/27/19 0545 WBC 11.2* 11.0* 10.6 RBC 3.24* 3.36* 3.27* HGB 9.7* 9.9* 9.5* HCT 28.3* 29.2* 28.3* MCV 87.3 87.0 86.7 MCH 30.0 29.5 29.1 MCHC 34.3 33.9 33.6 RDW 13.8 13.9 14.0 PLT 252 262 259 MPV 8.1 8.0 8.2 ASSESSMENT Patient Active Problem List Diagnosis Date Noted Acute renal failure (ARF) ([facility]) 10/19/2019 ASSESSMENT/PLAN: 1. BLOSSOM . Pt likely has CKD at baseline. No previous Cr values to compare. CKD could be from HTN induced nephrosclerosis VS GN since the patient has h/o proteinuria /hematuria since 2000 but he never had kidney Bx and never saw economics faculty member before BLOSSOM might be from CKD progression [...] . Pt is likely ESRD. Pt on [facility] HD schedule. Last HD session 10/25 Next HD session today Pt has HD spot at [facility]. 2- Hyperkalemia: resolved with HD 3-high anion gap acidosis likely from CKD and BLOSSOM Resolved with HD 4- Hyperphosphatemia: Continue Phosphorus binder 5- HTN: Improved with HD. Continue same BP meds Monitor BP Ok to d/c patient from nephro stand point Will continue to follow Please call if any question at [phone] JEANA PEDRAZA MD 10/27/2019 11:26 AM * Jeana Pedraza MD - 10/26/2019 4:25 PM EST [facility] Progress Note SUBJECTIVE: Glenn Snyder [...] never had kidney Bx and never saw economics faculty member before BLOSSOM might be from CKD progression [...] follow Please call if any question at [phone] JEANA PEDRAZA MD 10/26/2019 4:25 PM * Kimber Bajwa RN - 10/26/2019 10:46 AM EST Patient returned from renal biopsy. VSS, see record. Bandaide is dry and intact to right flank area. Patient instructed on need for bedrest until 12:45. * Darell Sanches DO - 10/26/2019 8:19 AM EST Hospitalist Progress Note 10/26/2019 8:19 AM [phone]: Please page me ([phone]) for patient care issues. [phone]: Please page [facility] night Hospitalist for any issues. Subjective: Admit [...] PLT 245 252 262 BMP: Recent Labs 10/24/1945510/25/19 0338 10/26/19 0503 NA 135 135 136 [...] lab Plan -daily weights, I&Os, dialysis per economics faculty member -renal biopsy and dialysis cath pending, economics faculty member following -am labs, replace lytes prn -increase activity -DVT prophylaxis: [] Lovenox [x] Heparin [] SCDs [x] Encourage ambulation [] Already on Anticoagulation Advance Directive: Full Code Discharge planning: Awaiting dialysis cath and renal biopsy. Can be discharge once outpatient dialysis arrangements have been made Darell Sanches DO Division of Hospitalist Medicine Inpatient Medical Services PAGER: [phone] * Ivett Cope, RN - 10/25/2019 4:23 PM EST JAMSHID [...] and discharge needs Received a call from [employer] regarding pt dialysis chair spot. Was informed [...] Fluid Accumulation-No significant fluid accumulation, 6. Supervisor Painting Department Strength-Normal Nutrition Risk Level: High Nutrient Needs: Estimated Daily Total Kcal: 2622-0048 Estimated Daily Protein (g): 60-90 Estimated Daily Total Fluid (ml/day): per md Nutrition Diagnosis: Problem: Altered nutrition-related lab values, Predicted suboptimal energy intake, Increased nutrient needs Etiology: related to Renal dysfunction ? Signs and symptoms: as evidenced by Known losses from dialysis, Weight loss, Lab values Objective Information: Nutrition-Focused Physical Findings: appetite improved, no edema, bun 39 , creat 9.71, wbc11.4xleub8.3,on renvela tid- NO DRY WT EST. off [...] kg)(summer 2018) % Weight Change: , na [place] Body Wt: 166 lb (75.3 kg), % [place] Body 121 Adjusted Body Wt: , body [...] Education Contact Number: [phone] * Darell Sanches, DO - 10/25/2019 12:02 PM EST Hospitalist Progress Note 10/25/2019 5:02 PM [phone]: Please page me ([phone]) for patient care issues. [phone]: Please page [facility] night Hospitalist for any [...] lab Plan -daily weights, I&Os, dialysis per economics faculty member -renal biopsy and dialysis cath pending, economics faculty member following -am labs, replace lytes prn -increase activity -DVT prophylaxis: [] Lovenox [x] Heparin [] SCDs [x] Encourage ambulation [] Already on Anticoagulation Advance Directive: Full Code Discharge planning: awaiting dialysis cath and renal biopsy Darell Sanches DO Division of Hospitalist Medicine Inpatient Medical Services PAGER: [phone] * Ramon Mei RN - 10/25/2019 11:46 AM EST Patient Name: Glenn Snyder Patient : 1965 Acct: [id number] Date of Admission: 10/19/2019 Room/Bed: [address] [place] [address] Code Status: Full Code Allergies: Allergies Allergen [...] Primary RN (First Initial, Last Name, Title): Mailck Husain RN Incapacitated Nurse Education Completed: Yes HBsAg ONLY: Date Drawn: October 19, 2019 Results: Negative HBsAb: Date Drawn: no results Results: Unknown Order Dialysis Bath K+ (Potassium): 3 Ca+ (Calcium): 2.5 Na+ (Sodium): 138 HCO3 (Bicarb): 35 Na+ Modeling: Not Applicable Dialyzer: [id number] Dialysate Temperature (C): 36 Blood Flow Rate [...] - Before each treatment: Dialysis Machine No.: [id number] RO Machine No.: [id number] Dialyzer Lot No.: [id number] RO Machine Log Sheet Completed: Yes Machine Alarm Self Test: Completed;Passed (10/25/19 1120) Machine Autotest: Completed, Passed Air Foam Detector: Tested, Proper Function, pH Reading Extracorporeal Circuit Tested for Integrity: Yes Machine Conductivity: 14 Manual Conductivity: 14.1 Machine Ph: 7 Manual Ph: 7 Bleach Test (Neg): Yes Bath Temperature: 96.8 F (36 C) Tubing Lot#: [id number] Conductivity Meter Serial #: [id number] All Connections Secure?: Yes Venous Parameters Set?: [...] Pedraza MD - 10/25/2019 7:58 AM EST [facility] Progress Note SUBJECTIVE: Glenn Snyder [...] never had kidney Bx and never saw economics faculty member before BLOSSOM might be from CKD progression [...] follow Please call if any question at [phone] JEANA PEDRAZA MD 10/25/2019 7:58 AM * [...] EST Hospitalist Progress Note 10/24/2019 11:38 AM [phone]: Please page me ([phone]) for patient care issues. [phone]: Please page [facility] night Hospitalist for any [...] lab Plan -daily weights, I&Os, dialysis per economics faculty member -renal biopsy and dialysis cath pending, economics faculty member following -am labs, replace lytes prn -increase activity -DVT prophylaxis: [] Lovenox [x] Heparin [] SCDs [x] Encourage ambulation [] Already on Anticoagulation Advance Directive: Full Code Discharge planning: ok to discharge today pending renal biopsy and dialysis cath placement Darell Sanches DO Division of Hospitalist Medicine Inpatient Medical Services PAGER: [phone] * Ivett Cope RN - 10/24/2019 10:48 AM EST Microbiology called, pt has 3x blood cultures drawn on 10/19. One came back with Gram positive rods.Eletrogóes message sent to [facility] Dr Sanches regarding results * Jeana Pedraza [...] Diagnosis Date Noted Acute renal failure (ARF) ([facility]) 10/19/2019 ASSESSMENT/PLAN: 1. BLOSSOM . Pt likely has CKD at baseline. No previous Cr values to compare. CKD could be from HTN induced nephrosclerosis VS GN since the patient has h/o proteinuria /hematuria since 2000 but he never had kidney Bx and never saw economics faculty member before BLOSSOM might be from CKD progression [...] follow Please call if any question at [phone] JEANA PEDRAZA MD 10/24/2019 9:15 AM * Radha Foreman RN - 10/23/2019 7:21 PM EST Patient Name: Glenn Snyder Patient : 1965 Acct: [id number] Date of Admission: 10/19/2019 Room/Bed: [facility]/222 Code Status: Full Code Allergies: Allergies Allergen [...] (Bicarb): 35 Na+ Modeling: Not Applicable Dialyzer: [id number] Dialysate Temperature (C): 35 Blood Flow Rate [...] - Before each treatment: Dialysis Machine No.: [id number] RO Machine No.: [id number] Dialyzer Lot No.: [id number] RO Machine Log Sheet Completed: Yes Machine Alarm Self Test: Completed;Passed (10/23/19 1710) Machine Autotest: Completed, Passed Air Foam Detector: Tested, Proper Function, pH Reading Extracorporeal Circuit Tested for Integrity: Yes Machine Conductivity: 13.7 Manual Conductivity: 13.6 Machine Ph: 7 Manual Ph: 7 Bleach Test (Neg): Yes Bath Temperature: 95 F (35 C) Tubing Lot#: [id number] Conductivity Meter Serial #: [id number] All Connections Secure?: Yes Venous Parameters Set?: [...] from secondary) Comment", Waited for RN supervisor weaving for 2nd water check. Access Flows and [...] stable. Looking at phone. Denies needs Yes 10/23/191914 400 ml/min 380 ml/hr 547 ml -140 [...] kg) Bed scale 1.44 10/23/192242 128/68 102 01/27/20 2244 12868 102 Post-Dialysis Arterial Catheter Locking Solution: Heparin [...] Patel MD - 10/23/2019 4:54 PM EST [facility] Progress Note SUBJECTIVE: Glenn Snyder [...] Diagnosis Date Noted Acute renal failure (ARF) ([facility]) 10/19/2019 ASSESSMENT/PLAN: 1. Renal failure, most likely chronic. Discussed with patient in detail. 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 Currently not working. 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 Apparently he was admitted at a hospital in [place] about 5 years ago and had cystoscopy [...] EST Hospitalist Progress Note 10/23/2019 5:02 PM [phone]: Please page me ([phone]) for patient care issues. [phone]: Please page [facility] night Hospitalist for any issues. Subjective: Admit [...] anemia Plan -daily weights, I&Os, dialysis per economics faculty member -renal biopsy and temp dialysis cath pending, economics faculty member to arrabge -am labs, replace lytes prn -increase activity -DVT prophylaxis: [] Lovenox [x] Heparin [] SCDs [x] Encourage ambulation [] Already on Anticoagulation Advance Directive: Full Code Discharge planning: likely discharge in next 24 hours Darell Sanches DO Division of Hospitalist Medicine Inpatient Medical Services PAGER: [phone] * Darell Sanches DO - 10/22/2019 2:17 PM EST Hospitalist Progress Note 10/22/2019 2:17 PM [phone]: Please page me ([phone]) for patient care issues. [phone]: Please page [facility] night Hospitalist for any issues. Subjective: Admit Date: 10/19/2019 PCP: No primary care provider on file. Room#: 222/2220 Interval History: No overnight issues. Denies chest [...] anemia Plan -daily weights, I&Os, dialysis per economics faculty member -discussed with patient and he is willing to have the renal bx done. Will notify economics faculty member -am labs, replace lytes prn -increase activity -DVT prophylaxis: [] Lovenox [x] Heparin [] SCDs [x] Encourage ambulation [] Already on Anticoagulation Advance Directive: Full Code Discharge planning: likely discharge in next 1-2 days after renal biopsy Darell Sanches DO Division of Hospitalist Medicine Inpatient Medical Services PAGER: [phone] * Randolph Liz MD - 10/22/2019 12:46 PM EST [facility] [address] [place] [address] Progress Note Subjective: Patient seen [...] EST Hospitalist Progress Note 10/21/2019 10:35 PM [phone]: Please page me ([phone]) for patient care issues. [phone]: Please page [facility] night Hospitalist for any [...] bolus, 20 mL, Intravenous, Once, Delon Jessica, DENIA - ASSOCIATE hydrALAZINE (APRESOLINE) injection 10 mg, 10 mg, [...] of Hospitalist Medicine Inpatient Medical Services PAGER: [phone] * Randolph Liz MD - 10/21/2019 1:44 PM EST [facility] [address] [place] [address] Progress Note Subjective: Patient seen [...] Name: Glenn Snyder Patient : 1965 Acct: [id number] Date of Admission: 10/19/2019 Room/Bed: 222/2225 Code [...] HCO3 (Bicarb): 35 Na+ Modeling: NA Dialyzer: [id number] Dialysate Temperature (C): 36 Blood Flow Rate [...] Regular Unlabored None (Room air) Expiratory wheezes [address] Dry;Warm Distended;Rounded;Soft Audible Generalized 0 10/21/19 1300 0 3 Regular Unlabored None (Room air) Clear;Diminished [address] Dry;Warm Distended;Rounded;Soft Active Generalized 0 Labs Recent [...] - Before each treatment: Dialysis Machine No.: [id number] RO Machine No.: [id number] Dialyzer Lot No.: [id number] RO Machine Log Sheet Completed: Yes Machine Alarm Self Test: Completed;Passed (10/21/19 0940) Machine Autotest: Completed, Passed Air Foam Detector: Tested, Proper Function, pH Reading Extracorporeal Circuit Tested for Integrity: Yes Machine Conductivity: 13.7 Manual Conductivity: 13.8 Machine Ph: 7 Manual Ph: 7 Bleach Test (Neg): Yes Bath Temperature: 96.8 F (36 C) Tubing Lot#: [id number] Conductivity Meter Serial #: [id number] All Connections Secure?: Yes Venous Parameters Set?: [...] Name: Glenn Snyder Patient : 1965 Acct: [id number] Date of Admission: 10/19/2019 Room/Bed: 222/2225 Code [...] (Bicarb): 35 Na+ Modeling: Not Applicable Dialyzer: [id number] Dialysate Temperature (C): 36 Blood Flow Rate [...] Bowel Sounds (All Quadrants) Edema Pain Level 01/24/20 1319 0 Unlabored Appropriate for ethnicity Warm Rounded;Soft None 10/20/19 1321 0 10/20/19 1525 0 x3 Regular Unlabored None (Room air) Clear [address] Dry;Warm Good Soft Active None 0 10/20/19 [...] - Before each treatment: Dialysis Machine No.: [id number] RO Machine No.: [id number] Dialyzer Lot No.: [id number] RO Machine Log Sheet Completed: Yes Machine Alarm Self Test: Completed;Passed (10/20/191524) Machine Autotest: Completed, Passed Air Foam Detector: Tested, Proper Function, pH Reading Extracorporeal Circuit Tested for Integrity: Yes Machine Conductivity: 13.6 Manual Conductivity: 13.6 Machine Ph: 7 Manual Ph: 7 Bleach Test (Neg): Yes Bath Temperature: 96.8 F (36 C) Tubing Lot#: [id number] Conductivity Meter Serial #: [id number] All Connections Secure?: Yes Venous Parameters Set?: [...] Pedraza MD - 10/20/2019 2:42 PM EST [facility] Progress Note SUBJECTIVE: Glenn Snyder [...] never had kidney Bx and never saw economics faculty member before BLOSSOM might be from CKD progression [...] follow Please call if any question at [phone] JEANA PEDRAZA MD 10/20/2019 2:43 PM * Dorcas Chin APRN - CNP - 10/20/2019 12:03 PM EST Patient transferred from ICU to [facility] service * Brett Encarnacion MD - 10/20/2019 [...] []Injected [x]Non-Injected / Pinnae [x]Normal []Other/ Dentitian [][place] Teeth []Dentures Oral Mucosa [x][address] [x]Moist []Dry/ Oral ETT []Present [x]Absent Neck: [...] [x]Absent/ GUAN ([x]RUE [x]RLE [x]LUE [x]LLE) Neurologic: KLAMATH []Yes [x]No Corneal reflexes []Present []Absent / [...] Ordering Physician MD ENCARNACION MATTHEW Accession Number [id number] CPT4 Codes 18758 () Reason For Exam line placement/vascath Report [...] Fluid Accumulation-No significant fluid accumulation, 6. Supervisor Painting Department Strength-Not measured Nutrition Risk Level: High Nutrient Needs: Estimated Daily Total Kcal: 4386-7094 Estimated Daily Protein (g): 60-90 Estimated Daily [...] Wt: (na) % Weight Change: , na [place] Body Wt: 166 lb (75.3 kg), % [place] Body 132 Adjusted Body Wt: , body [...] Name: Glenn Snyder Patient : 1965 Acct: [id number] Date of Admission: 10/19/2019 Room/Bed: [address] [place] [address] Code Status: No Order Allergies: No Known [...] (Bicarb): 40 Na+ Modeling: Not Applicable Dialyzer: [id number] Dialysate Temperature (C): 36 Blood Flow Rate (BFR): 200 Dialysate Flow Rate (DFR): 500 Treatment Treatment Number: 1 Time On: 1258 Time Off: 1458 Treatment Goal: 2L Weight: 220 lb 0.3 oz (99.8 kg) (10/19/191244) Access to be Utilized Access: Non-tunneled Catheter [...] - Before each treatment: Dialysis Machine No.: [id number] RO Machine No.: [id number] Dialyzer Lot No.: [id number] RO Machine Log Sheet Completed: Yes Machine Alarm Self Test: Completed;Passed (10/19/191244) Machine Autotest: Completed, Passed Air Foam Detector: Proper Function, Tested, pH Reading Extracorporeal Circuit Tested for Integrity: Yes Machine Conductivity: 13.8 Manual Conductivity: 13.7 Machine Ph: 7 Manual Ph: 7 Bleach Test (Neg): Yes Bath Temperature: 96.8 F (36 C) Tubing Lot#: [id number] Conductivity Meter Serial #: [id number] All Connections Secure?: Yes Venous Parameters Set?: [...] to Education: Verbalized Understanding documented in this encounterSUMAmbient Control Systems Work Phone: [phone] Hospital course Narrative* Darell Sanches, DO - [...] to presentation. Admitted to ICU, seen by economics faculty member and HD initiated. 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 Moderate Complexity: follow up within 7-14 calendar days (37450) ? Severe Complexity: follow up within 7 calendar days (62090) Follow up Testing, Pending results or Referrals [...] AM documented in this encounterSUMMA Work Phone: [phone] Hospital Discharge instructions* Discharge Instr - Activity* [...] most local grocery stores, pharmacies, and chain [employer]-stores. ? If you have any questions about your diet or nutrition, call the hospital and ask for the dietitian. * Discharge Instr - Lab* Sophia Bai RN - 10/24/2019 2:21 PM EST [facility] [phone] offer services including medical, dental, memorial hospital, behavioral health and a reduced-rate pharmacy. Fees are based on current income and family size. Please refer to your handout for additional information and all location options. [address] [facility] [place] [address] Wednesday 8 AM 6 PM Wednesday 8 AM 2 PM Hemodialysis will be Wednesday, Wednesday and Wednesday at [facility] located at [address] [place] [address] or [phone] Please arrive at 9:45 am * Additional [...] through Care Everywhere. * Kidney Biopsy: Post-op (Vietnamese) [facility] Work Phone: Evaluation note* Diagnosis Acute kidney injury (HCC)- Primary Acute kidney failure, unspecified Uncontrolled hypertension Unspecified essential hypertension Normocytic anemia Anemia, unspecified Angioedema, initial encounter Hyperkalemia Hyperpotassemia Metabolic acidosis Acidosis Rectal bleeding Hemorrhage of rectum and anus Acute renal failure (ARF) (HCC) Acute kidney failure, unspecified documented in this encounter [facility] Work Phone: Evaluation note* Diagnosis Acute blood loss anemia- Primary Acute posthemorrhagic anemia Rectal bleeding Hemorrhage of rectum and anus [facility] Diagnosis Other iron deficiency anemia- Primary Rectal bleeding Hemorrhage of rectum and anus [facility]* Diagnosis Skin sore- Primary ESRD (end stage renal disease) on dialysis (HCC) End stage renal disease [facility] Diagnosis New onset a-fib (CMS/HCC) (HCC)- Primary Atrial fibrillation New onset a-fib (CMS/HCC) (HCC) Atrial fibrillation Atrial fibrillation, persistent ([facility]) [facility] Diagnosis Nonrheumatic aortic valve stenosis- Primary Paroxysmal A-fib (CMS/HCC) (HCC) Primary hypertension Unspecified essential hypertension Calcification of abdominal aorta (HCC) Tobacco abuse Tobacco use disorder ESRD on hemodialysis (CMS/HCC) (HCC) [facility] Diagnosis Personal history of nicotine dependence- Primary Nicotine dependence, cigarettes, uncomplicated [facility] Diagnosis Paroxysmal A-fib [...] disorder in remission [facility] Diagnosis Paroxysmal A-fib (CMS/HCC) [...] of abdominal surgery [facility]* Diagnosis Paroxysmal A-fib (CMS/HCC) [...] abdominal surgery documented in this encounter [facility]* Diagnosis Paroxysmal A-fib [...] of abdominal surgery [facility]* Diagnosis Paroxysmal A-fib (CMS/HCC) [...] chronicity, unspecified whether acute cor pulmonale present ([facility]) [facility] [...] valve stenosis Acute encephalopathy ESRD on hemodialysis ([facility]/HCC) (HCC) Alcohol use disorder in remission documented [...] aortic valve stenosis [facility]* Diagnosis Paroxysmal A-fib (CMS/HCC) [...] Primary Atrial fibrillation documented in this encounter [facility]* Diagnosis Paroxysmal A-fib [...] hypoxia (HCC) [J96.01] [facility]* Diagnosis Paroxysmal A-fib (CMS/HCC) [...] not elsewhere classified [facility]* Diagnosis Paroxysmal A-fib (CMS/HCC) [...] osteomyelitis (CMS/HCC) (HCC) [facility]* Diagnosis Paroxysmal A-fib (CMS/HCC) [...] unstageable (HCC) documented in this encounter 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 [facility]* Diagnosis Paroxysmal A-fib (CMS/HCC) [...] chronicity, unspecified whether acute cor pulmonale present ([facility]) [facility]* Diagnosis Paroxysmal A-fib (CMS/HCC) [...] to respiratory syncytial virus (RSV) Tracheostomy dependence ([facility]) Tracheostomy status Acute respiratory failure with hypoxia ([facility]) [J96.01] Leg DVT (deep venous thromboembolism), acute, left ([facility]) Pulmonary embolism, unspecified chronicity, unspecified pulmonary embolism type, unspecified whether acute cor pulmonale present ([facility]) S/P AVR [facility]* Diagnosis Paroxysmal A-fib (CMS/HCC) (HCC)- Primary Nonrheumatic aortic valve stenosis Primary hypertension Unspecified essential hypertension ESRD on hemodialysis ([facility]/HCC) ([facility]) Calcification of abdominal aorta (HCC) Tobacco abuse Tobacco use disorder Nonrheumatic aortic valve stenosis- Primary Paroxysmal A-fib (CMS/HCC) ([facility]) Primary hypertension Unspecified essential hypertension Calcification of abdominal aorta (HCC) Tobacco abuse Tobacco use disorder ESRD on hemodialysis ([facility]/HCC) (HCC) Paroxysmal A-fib (CMS/HCC) (HCC)- Primary Nonrheumatic aortic valve stenosis Tobacco abuse Tobacco use disorder Alcohol use disorder in remission 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[facility])- Primary Tracheostomy status ESRD on hemodialysis (CMS/HCC) ([facility]) Ischemic ulcer of toe of left foot, 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) Sacral osteomyelitis (CMS/HCC) ([facility]) Leukocytosis, unspecified type documented in this encounter [...] lung (HCC) Acute respiratory failure with hypoxia ([facility]) [J96.01] Nonrheumatic aortic valve stenosis Pulmonary embolism, unspecified chronicity, unspecified pulmonary embolism type, unspecified whether acute cor pulmonale present ([facility]) documented in this encounter [facility]* Diagnosis Paroxysmal A-fib (CMS/HCC) ([facility])- Primary Nonrheumatic aortic valve stenosis Primary hypertension Unspecified essential hypertension ESRD on hemodialysis ([facility]) ([facility]) Calcification of abdominal aorta (HCC) Tobacco abuse Tobacco use disorder Nonrheumatic aortic valve stenosis- Primary Paroxysmal A-fib (CMS/HCC) ([facility]) Primary hypertension Unspecified essential hypertension Calcification of abdominal aorta (HCC) Tobacco abuse Tobacco use disorder ESRD on hemodialysis ([facility]) ([facility]) Paroxysmal A-fib ([facility]/HCC) ([facility])- Primary Nonrheumatic aortic valve stenosis Tobacco abuse Tobacco use disorder Alcohol use disorder in remission 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* Diagnosis Paroxysmal A-fib (CMS/HCC) ([facility])- Primary Nonrheumatic aortic valve stenosis Primary hypertension Unspecified essential hypertension ESRD on hemodialysis ([facility]) ([facility]) Calcification of abdominal aorta (HCC) Tobacco abuse Tobacco use disorder Nonrheumatic aortic valve stenosis- Primary Paroxysmal A-fib (CMS/HCC) ([facility]) Primary hypertension Unspecified essential hypertension Calcification of abdominal aorta (HCC) Tobacco abuse Tobacco use disorder ESRD on hemodialysis ([facility]/HCC) ([facility]) Paroxysmal A-fib (CMS/HCC) ([facility])- Primary Nonrheumatic aortic valve stenosis Tobacco abuse Tobacco use disorder Alcohol use disorder in remission Acute respiratory failure with hypoxia ([facility]) [J96.01]- Primary RSV (acute bronchiolitis due to [...] Decubitus ulcer of sacral region, unstageable (HCC) 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* Diagnosis Paroxysmal A-fib [...] present (HCC) S/P AVR ESRD on hemodialysis ([facility]/HCC) ([facility]) [facility]* Diagnosis Paroxysmal A-fib (CMS/HCC) (HCC)- Primary Nonrheumatic aortic valve stenosis Primary hypertension Unspecified essential hypertension ESRD on hemodialysis ([facility]/HCC) (HCC) Calcification of abdominal aorta (HCC) [...] in remission Hemoptysis documented in this encounter [facility]* Diagnosis Paroxysmal A-fib [...] Necrosis (HCC) Gangrene [facility] instructions* Instructions* Fabiola Huitron, RN - 09/15/2021 [employer] Hemodialysis Access: What [...] or dog food bags, or a vacuum beauty parlor cleaner. Your dressing will be removed at [...] call and ask for the Interventional Radiologist non profit job titles. Where can you learn more? Go to [email or web address] and sign in to your [employer] account. Enter P616 in the Search Health Information box to learn more about Hemodialysis Access: What to Expect at Home. If you do not have an account, please click on the "Sign Up Now" link. Current as of: August 12, 2016 Content Version: 11.2 6276-6216 [employer]. Care instructions adapted under license by [employer]. If youhave questions about a medical condition or this instruction, always ask your healthcare professional. [employer] disclaims any warranty or liability for your use of this information. documented in this encounterSUMMA Work Phone: Reason for referral (narrative)* Outpatient Procedure (Routine) - Authorized Specialty Diagnoses / Procedures Referred By Contjayant t Referred To Contact [facility] Diagnoses Acute blood loss anemia Rectal bleeding Procedures COLONOSCOPY DIAGNOSTIC COLONOSCOPY FLX DX W/COLLJ SPEC WHEN PFRMD Rudy Painter MD [address] [facility] [place] [address] [address] Referral ID Status Reason Start Date Expiration Date Visits Requested Visits Authorized [id number] Authorized Auto-Generat ed Referral 12/25/2021 12/25/2022 1 1 [facility] for referral (narrative)* Outpatient Procedure (Routine) - Authorized Specialty Diagnoses / Procedures Referred By Contac t Referred To Contact [facility] Diagnoses Other iron deficiency anemia Rectal bleeding Procedures COLONOSCOPY DIAGNOSTIC COLONOSCOPY FLX DX W/COLLJ SPEC WHEN PFRudy Menendez MD [address] [facility] [place] [address] [address] Referral ID Status Reason Start Date Expiration Date Visits Requested Visits Authorized [id number] Authorized Auto-Generat ed Referral 12/30/2021 12/30/2022 1 1 [facility] for referral (narrative)* Consultation (Routine) - Pending Review Specialty Diagnoses / Procedures Referred By Contac t Referred To Contact Wound Care Diagnoses Skin sore Procedures TX OFFICE/OUTPATIENT NEW HIGH MDM 60-74 MINUTES Jese Frank MD [address] [place] [address] [facility] Op Wnd Ostomy Hbo [address] [place] [address] Referral ID Status Reason Start Date Expiration Date Visits Requested Visits Authorized [id number] Pending Review Specialty Services Required 05/01/2023 04/30/2024 1 1 [facility]No reason for referral information availableWKettering [facility] Work Phone: Reason for visit Narrative* Auth/Cert (Routine) Specialty Diagnoses / Procedures Referred By Contac t Referred To Contact Diagnoses Atrial flutter, unspecified type (HCC) Procedures . Ramón Romano MD [address] [place] [address] Phone: tel: fax: [facility] [address] [place] [address] Phone: tel: Referral ID Status Reason Start Date Expiration Date Visits Re quested Visits Authorized [id number] 1 1 [facility] N[facility]* Imaging (Routine) - Closed Specialty Diagnoses / Procedures Referred By Contac t Referred To Contact Radiology Diagnoses Hemoptysis Procedures CT chest wo IV contrast Elly Jett [place] [facility] [place] [address] Phone: tel: fax: [address] [place] [phone] Phone: tel: fax: Referral ID Status Reason Start Date Expiration Date Visits Re quested Visits Authorized [id number] Closed 02/23/2025 02/23/2026 1 1 [facility] Assessments Diagnosis Chronic kidney disease, stage V [...] Documents on File Type Date Recorded Patient Baseball Pitcher Expl anation Advance Directive(s) 11/22/2020 11:20 AM Advance Directive(s) 06/12/2020 8:15 AM Advance Directive(s) 03/20/2020 7:16 AM Documents on File Type Date Recorded Patient Baseball Pitcher Expl anation Advance Directive(s) 11/22/2020 11:20 AM Advance Directive(s) 06/12/2020 8:15 AM Advance Directive(s) 03/20/2020 7:16 AM Documents on File Type Date Recorded Patient Baseball Pitcher Expl anation Power of Technologies Division Chair 02/14/2023 1:37 PM Advance Directives and Livin g Will 02/14/2023 1:37 PM Documents on File Type Date Recorded Patient Baseball Pitcher Expl anation Power of Technologies Division Chair 02/14/2023 1:37 PM Advance Directives and Livin [...] Documents on File Type Date Recorded Patient Baseball Pitcher Expl anation Advance Directives and Livin g Will 10/03/2024 11:27 AM Power of Technologies Division Chair 02/14/2023 1:37 PM Advance Directives and Livin g Will 02/14/2023 1:37 PM Date Activated Date Inactivated Comments 10/03/2024 6:19 PM Date Activated Date Inactivated Comments 08/17/2023 12:04 AM 08/17/2023 5:18 PM Documents on File Type Date Recorded Patient Baseball Pitcher Expl anation Advance Directives and Livin g Will 10/03/2024 11:27 AM Power of Technologies Division Chair 02/14/2023 1:37 PM Advance Directives and Livin g Will 02/14/2023 1:37 PM Date Activated Date Inactivated Comments 10/03/2024 6:19 PM Date Activated Date Inactivated Comments 08/17/2023 12:04 AM 08/17/2023 5:18 PM Healthcare Agents on File Name Relationship Healthcare Agent [facility] Communication Omar Lillian Child Health Care Agent [...] Documents on File Type Date Recorded Patient Baseball Pitcher Expl anation Power of Technologies Division Chair 01/24/2025 12:29 PM Advance Directives and Livin g Will 10/03/2024 11:27 AM Power of Technologies Division Chair 02/14/2023 1:37 PM Advance Directives and Livin [...] Child Health Care Agent Toma Tarun Partner [facility] Health Care Agent Documents on File Type Date Recorded Patient Baseball Pitcher Expl anation Power of Technologies Division Chair 01/24/2025 12:29 PM Advance Directives and Livin g Will 10/03/2024 11:27 AM Power of Technologies Division Chair 02/14/2023 1:37 PM Advance Directives and Livin [...] Documents on File Type Date Recorded Patient Baseball Pitcher Expl anation Power of Technologies Division Chair 01/24/2025 12:29 PM Omar Lillian Advance Directives and Livin g Will 10/03/2024 11:27 AM Power of Technologies Division Chair 02/14/2023 1:37 PM Advance Directives and Livin [...] Name Relationship Healthcare Agent Relationshi p Communication Oamr Lillian Child Health Care Agent Toma Tarun Partner [facility] Alternate Health Care Agent Healthcare Agents on File Name Relationship Healthcare Agent Relationshi p Communication Omar Lillian Child Health Care Agent Toma Tarun Partner [facility] Health Care Agent Documents on File Type Date Recorded Patient Baseball Pitcher Expl anation Power of Technologies Division Chair 01/24/2025 12:29 PM Omar Lillian Advance Directives and Livin g Will 10/03/2024 11:27 AM Power of Technologies Division Chair 02/14/2023 1:37 PM Advance Directives and Livin [...] CT lung screening low dose Fransisco Pineda, ELECTRICAL APPLIANCE REPAIRER [address] [place] [address] Referral ID Status Reason Start Date Expiration Date V isits Requested Visits Authorized [id number] Authorized 09/07/2023 09/06/2024 1 1 Chief Complaint and Reason for Visit Chief Complaint Admit Date LABWORK February 05, 2025 5:56a m Chief Complaint Admit Date LABWORK February 05, 2025 5:56a m LABOWRK February 07, 2025 5:00a m [facility] LAB WORK February 15, 2025 5:0 0am [facility] LAB WORK February 20, 2025 4:0 0am Chief Complaint Admit Date LABWORK February 05, 2025 5:56a m LABOWRK February 07, 2025 5:00a m Chief Complaint Admit Date LABWORK February 05, 2025 5:56a m LABOWRK February 07, 2025 5:00a m [facility] LAB WORK February 08, 2025 5:0 0am [facility] LAB WORK February 12, 2025 5:0 0am [facility] LAB WORK February 13, 2025 5:0 0am [facility] LAB WORK February 15, 2025 5:0 0am [facility] LAB WORK February 20, 2025 4:0 0am Additional Source Comments Source Comments (unrecognize d section and content) In the event this informatio n is protected by the Federal Confidentiality of Alcohol and Drug Abuse Patient Records regulations: The Federal rules restrict any use of the information to criminally investigate or prosecute any alcohol or drug abuse patient.[facility] Hospital[facility] the event this information is protected by the Federal Confidentiality of Alcohol and Drug Abuse Patient Records regulations: The Federal rules restrict any use of the information to criminally investigate or prosecute any alcohol or drug abuse patient.[facility] HospitalIn the event this information is protected by the Federal Confidentiality of Alcohol and Drug Abuse Patient Records regulations: The Federal rules restrict any use of the information to criminally investigate or prosecute any alcohol or drug abuse patient.[facility] HospitalIn the event this information is protected by the Federal Confidentiality of Alcohol and Drug Abuse Patient Records regulations: The Federal rules restrict any use of the information to criminally investigate or prosecute any alcohol or drug abuse patient.[facility] HospitalIn the event this information is protected by the Federal Confidentiality of Alcohol and Drug Abuse Patient Records regulations: The Federal rules restrict any use of the information to criminally investigate or prosecute any alcohol or drug abuse patient.[facility] HospitalIn the event this information is protected by the Federal Confidentiality of Alcohol and Drug Abuse Patient Records regulations: The Federal rules restrict any use of the information to criminally investigate or prosecute any alcohol or drug abuse patient.[facility] HospitalIn the event this information is protected by the Federal Confidentiality of Alcohol and Drug Abuse Patient Records regulations: The Federal rules restrict any use of the information to criminally investigate or prosecute any alcohol or drug abuse patient.[facility] HospitalIn the event this information is protected by the Federal Confidentiality of Alcohol and Drug Abuse Patient Records regulations: The Federal rules restrict any use of the information to criminally investigate or prosecute any alcohol or drug abuse patient.[facility] (unrecognized sect ion and content) No Status Records FoundNo Status Records FoundNo Status Records FoundNo Status Records FoundNo Status Records FoundNo Status Records Found INFORMATION SOURCE (unrecogn ized section and content) DATE CREATED AUTHOR 11/26/2020 [facility] DATE CREATED AUTHOR AUTHOR'S ORGANIZ ATION 09/18/2021 [facility] DATE CREATED AUTHOR AUTHOR'S ORGANIZ ATION 12/18/2022 [facility] DATE CREATED AUTHOR AUTHOR'S ORGANIZ ATION 04/16/2024 [facility] DATE CREATED AUTHOR AUTHOR'S ORGANIZ ATION 04/28/2025 [facility] DATE CREATED AUTHOR AUTHOR'S ORGANIZ ATION 05/04/2025 [facility] Continuous Active and Recently Administ ered Medications (unrecognized section and content) Medication Order 09/13/2021 09/14/2021 09/15/2021 0.9 % sodium chloride infusion IntraVENous, at 50 mL/hr, CONTINUOUS, Starting on Wed09/15/21 at 0945, Pre-op (day of surgery) 0955 ([facility] ider: Marjorie Menjivar RN) PRN [...] sodium chloride 0.9 % 100 mL IVPB (Add-Castleton) 3,000 mg, IntraVENous, at 200 mL/hr, Administer over 30 Minutes, Every 24 hours, First dose on Wed01/25/25 at 1700, ADD-Castleton bag, Suspected Indication (Select all that apply): Bone and Joint Infection 1838 (New Bag - Provider: Miriam Reza RN)2013 (Stopped - Provider: Casandra Rose RN) 1645 (New Bag - Provider: Angella Ley RN)1715 (Due: Stopped - Provider: Angella Ley RN) 1700 (Canceled Entry - Provider: Automatic Discharge Provider - Comment: Automatically canceled at discontinue of medication order) ampicillin-sulbactam (Unasyn) 3,000 mg in sodium chloride 0.9 % 100 mL IVPB (Add-Castleton) (CANCELED) 3,000 mg, IntraVENous, at 200 mL/hr, Administer over 30 Minutes, Every 24 hours, First dose on Wed02/01/25 at 1030, For 13 days, ADD-Castleton bag, Suspected Indication (Select all that apply): [...] medication order) 0816 (Given - Provider: Kristine Donato, SWEETIE) hydrOXYzine HCl (Atarax) tablet 25 mg (COMPLETED) 25 mg, Oral, Once, On Wed02/01/25 at 0500, For 1 dose 0528 (Given - Provider: Leilani Jaimes, SWEETIE) Lidocaine 4 % patch 1 patch 1 [...] - Comment: dialysis)2041 (Given - Provider: Leilani Jaimes, SWEETIE) 0815 (Given - Provider: Kristine Donato, SWEETIE) midodrine (Proamatine) tablet 10 mg 10 mg, Oral, 2 times daily, First dose on Wed01/26/25 at 2100 1038 (Given - Provider: Miriam Reza, RN)2023 (Given - Provider: Casandra Rose, RN) 1529 (Not Given - Provider: Angella Ley RN - Reason: Other - Comment: dialysis)2042 (Given - Provider: Leilani Jaimes, SWEETIE) 0815 (Given - Provider: Kristine Donato, SWEETIE) [...] Blood sugar less than 70mg/dL, Starting on [place] 01/21/25 at 0605, Start infusion following administration of dextrose 50% or glucagon. dextrose 50 % solution 12.5 g 12.5 g, IntraVENous, PRN, low blood sugar, Blood glucose less than 70 mg/dL and patient NOT ALERT or NPO., Starting on [place] 01/21/25 at 0605, If patient does not respond [...] does not have IV access., Starting on [place] 01/21/25 at 0605, After administration, attempt intravenous access and start D5W at 100 mL/hr. Repeat blood glucose in 15 minutes x2 and notify provider. glucose oral gel 15 g 15 g, Oral, As needed, low blood sugar, Starting on [place] 01/21/25 at 0605, If blood glucose less than [...] Jun Borrero MD) lidocaine-EPINEPHrine (Xylocaine W/EPI) 1 %-[id number] injection (COMPLETED) As needed, Starting on Wed01/30/25 [...] pupils, Starting on Wed01/19/25 at 0614, +++notify non profit job titles provider if used+++ oxyCODONE (Roxicodone) immediate release [...] 0900 0825 (Given - Provider: Shasta Sinclair, SWEETIE) 0832 (Given - Provider: Ochoa Johnson, SWEETIE) [...] at 0030 1351 (Given - Provider: Shasta Sinclair, RN - Comment: pt going to dialysis; ok to give now per dr hurtado)2120 (Given - Provider: Rudolph Najera, SWEETIE) 0831 (Given - Provider: Ochoa Johnson, RN)2123 (Given - Provider: Rosio Bey, SWEETIE) [...] Reason: Patient/family refused) 0549 (Given - Provider: Rosoi Bey RN)1600 (Canceled Entry - Provider: Automatic [...] Arnold RN)0530 (Stopped - Provider: Ave Arnold, SWEETIE)0825 (New Bag - Provider: Shasta Sinclair RN)1340 [...] Bey, RN)0438 (New Bag - Provider: Rosio Bey RN)0739 (Stopped - Provider: Tyson Freeman RN)1034 (New Bag - Provider: Tyson Freeman RN)1425 (Stopped - Provider: Tyson Freeman RN)1600 (Canceled Entry - Provider: Automatic Discharge Provider - Comment: Automatically canceled at discontinue of medication order) QUEtiapine (SEROquel) tablet 25 mg 25 mg, Oral, Nightly, First dose (after last modification) on Wed02/24/25 at 2200 2119 (Given - Provider: Rudolph Najera RN) 2122 (Given - Provider: Rosio Bey RN) sevelamer [...] their absorption. 0403 (Given - Provider: Ave Arnold, SWEETIE) 0833 (Given - Provider: Ochoa Johnson, RN) 0913 [...] parameters 0125 (New Bag - Provider: Ave Arnold, SWEETIE)0236 (Rate/Dose Verify - Provider: Ave Arnold RN)0707 (New Bag - Provider: Ave Arnold RN)1501 (Rate/Dose Verify - Provider: Shasta Sinclair RN)1914 (Handoff - Provider: Shasta Sinclair RN) 0203 (Rate/Dose Verify - Provider: Rudolph Najera RN)0204 (New Bag - Provider: Rudolph Najera RN)0727 (Handoff - Provider: Ochoa Johnson, SWEETIE)1032 (Handoff - Provider: Ochoa Johnson, SWEETIE)1920 (Handoff - Provider: Susanna Jackson, SWEETIE) 0222 (New Bag - Provider: Rosio Bey, [...] sedation for opioid reversal - MUST notify non profit job titles provider immediately after first dose, may give [...] Patient/family refused) 0602 (Not Given - Provider: Roiso Bey RN - Reason: Patient/family refused)1516 (Not [...] Care Teams (unrecognized sec tion and content) Radial Drill Operator For Plastic Relationship Specialty Start Date End Date Daryn Loomis MD [address] [place] [address] PCP - General Family Medicine 12/18/20 Radial Drill Operator For Plastic Relationship Specialty Start Date End Date Candido Starr MD [address] [address] Nephrology 02/22/20 Radial Drill Operator For Plastic Relationship Specialty Start Date End Date Candido Starr MD [address] [address] Nephrology 02/22/20 Radial Drill Operator For Plastic Relationship Specialty Start Date End Date Candido Starr MD [address] [address] Nephrology 02/22/20 Radial Drill Operator For Plastic Relationship Specialty Start Date End Date Daryn Loomis MD [address] [place] [address] PCP - General 12/18/20 Radial Drill Operator For Plastic Relationship Specialty Start Date End Date Daryn Loomis MD [facility] [place] [address] PCP - General 12/18/20 Radial Drill Operator For Plastic Relationship Specialty Start Date End Date Daryn Loomis MD [facility] [address] [place] [address] PCP - General 12/18/20 Radial Drill Operator For Plastic Relationship Specialty Start Date End Date Daryn Loomis MD [facility] [place] [address] PCP - General 12/18/20 Radial Drill Operator For Plastic Relationship Specialty Start Date End Date Daryn Loomis MD [facility] [address] [place] [address] PCP - General 12/18/20 Radial Drill Operator For Plastic Relationship Specialty Start Date End Date Daryn Loomis MD [facility] [place] [address] PCP - General 12/18/20 Radial Drill Operator For Plastic Relationship Specialty Start Date End Date Daryn Loomis MD [facility] [place] [address] PCP - General 12/18/20 Radial Drill Operator For Plastic Relationship Specialty Start Date End Date Daryn Loomis MD [facility] [address] [place] [address] PCP - General 12/18/20 Radial Drill Operator For Plastic Relationship Specialty Start Date End Date Candido Starr MD [address] [place] [address] Nephrology 02/22/20 Radial Drill Operator For Plastic Relationship Specialty Start Date End Date Candido Starr MD [address] [place] [address] Nephrology 02/22/20 Radial Drill Operator For Plastic Relationship Specialty Start Date End Date Daryn Loomis MD [facility] [place] [address] PCP - General 12/18/20 Radial Drill Operator For Plastic Relationship Specialty Start Date End Date Leilani Troncoso [address] [place] [address] PCP - General Family Medicine 10/03/24 Radial Drill Operator For Plastic Relationship Specialty Start Date End Date Leilani Troncoso [address] [place] [address] PCP - General Family Medicine 10/03/24 Radial Drill Operator For Plastic Relationship Specialty Start Date End Date Leilani Troncoso [address] [place] [address] PCP - General Family Medicine 10/03/24 Radial Drill Operator For Plastic Relationship Specialty Start Date End Date Leilani Troncoso [address] [place] [address] PCP - General Family Medicine 10/03/24 Radial Drill Operator For Plastic Relationship Specialty Start Date End Date Leilani Troncoso [address] [place] [phone] PCP - General Family Medicine 10/03/24 Radial Drill Operator For Plastic Relationship Specialty Start Date End Date Leilani Troncoso [address] [place] [phone] PCP - General Family Medicine 10/03/24 Radial Drill Operator For Plastic Relationship Specialty Start Date End Date Leilani Troncoso [address] [place] [phone] PCP - General Family Medicine 10/03/24 Radial Drill Operator For Plastic Relationship Specialty Start Date End Date Leilani Troncoso [address] [place] [phone] PCP - General Family Medicine 10/03/24 Radial Drill Operator For Plastic Relationship Specialty Start Date End Date Leilani Troncoso [address] [place] [phone] PCP - General Family Medicine 10/03/24 Radial Drill Operator For Plastic Relationship Specialty Start Date End Date Leilani Troncoso [address] [place] [phone] PCP - General Family Medicine 10/03/24 Radial Drill Operator For Plastic Relationship Specialty Start Date End Date Leilani Troncoso [address] [place] [phone] PCP - General Family Medicine 10/03/24 Radial Drill Operator For Plastic Relationship Specialty Start Date End Date Leilani Troncoso [address] [place] [phone] PCP - General Family Medicine 10/03/24 Radial Drill Operator For Plastic Relationship Specialty Start Date End Date Leilani Troncoso [address] [place] [phone] PCP - General Family Medicine 10/03/24 Radial Drill Operator For Plastic Relationship Specialty Start Date End Date eLilani Troncoso [address] [place] [phone] PCP - General Family Medicine 10/03/24 Radial Drill Operator For Plastic Relationship Specialty Start Date End Date Leilani Troncoso [address] [place] [phone] PCP - General Family Medicine 10/03/24 Radial Drill Operator For Plastic Relationship Specialty Start Date End Date Leilani Troncoso [address] [place] [phone] PCP - General Family Medicine 10/03/24 Radial Drill Operator For Plastic Relationship Specialty Start Date End Date Leil[place] [address] PCP - General Family Medicine 10/03/24 Radial Drill Operator For Plastic Relationship Specialty Start Date End Date Leilani Troncoso [address] [place] [address] PCP - General Family Medicine 10/03/24 Radial Drill Operator For Plastic Relationship Specialty Start Date End Date Le[place] [address] PCP - General Family Medicine 10/03/24 Radial Drill Operator For Plastic Relationship Specialty Start Date End Date Leilani Troncoso [address] [place], [phone] PCP - General Family Medicine 10/03/24 Radial Drill Operator For Plastic Relationship Specialty Start Date End Date Leilani Troncoso [address] [place], [phone] PCP - General Family Medicine 10/03/24 Radial Drill Operator For Plastic Relationship Specialty Start Date End Date Leilani Troncoso [address] [place], [phone] PCP - General Family Medicine 10/03/24 Radial Drill Operator For Plastic Relationship Specialty Start Date End Date Leilani Troncoso [address] [place], [phone] PCP - General Family Medicine 10/03/24 Radial Drill Operator For Plastic Relationship Specialty Start Date End Date Leilani Troncoso [address] [place], [phone] PCP - General Family Medicine 10/03/24 Radial Drill Operator For Plastic Relationship Specialty Start Date End Date Leilani Troncoso [address] [place], [phone] PCP - General Family Medicine 10/03/24 Radial Drill Operator For Plastic Relationship Specialty Start Date End Date Leilani Troncoso [address] [place], [phone] PCP - General Family Medicine 10/03/24 Team [...] Attending Provider Active Start: February 20, 2025 Radial Drill Operator For Plastic Relationship Specialty Start Date End Date AbaLeilani [address] [place] [phone] PCP - General Family Medicine 10/03/24 Radial Drill Operator For Plastic Relationship Specialty Start Date End Date Aba Leilani [address] [place] [address] PCP - General Family Medicine 10/03/24 Radial Drill Operator For Plastic Relationship Specialty Start Date End Date Aba Leilani [address] [place] [phone] PCP - General Family Medicine 10/03/24 Radial Drill Operator For Plastic Relationship Specialty Start Date End Date Aba Leilani [address] [place] [phone] PCP - General Family Medicine 10/03/24 Radial Drill Operator For Plastic Relationship Specialty Start Date End Date Leilani Troncoso [address] [place] [address] PCP - General Family Medicine 10/03/24 Radial Drill Operator For Plastic Relationship Specialty Start Date End Date Leilani [place] [address] PCP - General Family Medicine 10/03/24 Team [...] February 20, 2025 End: February 20, 2025 Radial Drill Operator For Plastic Relationship Specialty Start Date End Date Leilani [place] [address] PCP - General Family Medicine 10/03/24 Team [...] February 12, 2025 End: February 12, 2025 Radial Drill Operator For Plastic Relationship Specialty Start Date End Date Leilani Troncoso [address] [place] [address] PCP - General Family Medicine 10/03/24 Radial Drill Operator For Plastic Relationship Specialty Start Date End Date Leilani Troncoso [address] [place] [address] PCP - General Family Medicine 10/03/24 Radial Drill Operator For Plastic Relationship Specialty Start Date End Date Leilani Troncoso [address] [place] [phone] PCP - General Family Medicine 10/03/24 Radial Drill Operator For Plastic Relationship Specialty Start Date End Date Leilani Troncoso [address] [place] [address] PCP - General Family Medicine 10/03/24 Radial Drill Operator For Plastic Relationship Specialty Start Date End Date Leilani Troncoso [address] [place] [address] PCP - General Family Medicine [...] (CMS/HCC) (HCC) Procedures . Earlene Irving MD [address] [facility] [place] [address] [facility] Emergency Dept [address] [place] [address] Referral ID Status Reason Start Date Expiration Date Visits Re quested Visits Authorized [id number] 1 1 Reason Onset Date Comments Cancelled [...] (HCC) Procedures . Bruce Nguyen MD [address] [facility] [address] [place] [address] Phone: tel: fax: [facility] Medical Intensive Care Unit [address]U [address] [place] [address] Phone: tel: Referral ID Status Reason Start Date Expiration Date Visits Re quested Visits Authorized [id number] 27 Reason Onset Date Comments Anticoagulation 01/29/2025 Reason [...] was bright red and 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 Specialty Diagnoses / Procedures Referred By Contac t Referred To Contact Diagnoses Hemoptysis Procedures . Bettye Pierre MD [address] [place] [address] Phone: tel: fax: [facility] Trauma Neuro Progressive Care Unit [address]U [address] [place] [address] Phone: tel: Referral ID Status Reason Start Date Expiration Date Visits Re quested Visits Authorized [id number] Reason Onset Date Comments Appointment 02/23/2025 Reason Comments Shortness of Breath [facility]. Pt was starting dialysis and feeling short of breath dialysis was stopped and sent to the hospital to be evaluated. Specialty Diagnoses / Procedures Referred By Contac t Referred To Contact Diagnoses SOB (shortness of breath) Procedures 0 Rubi Sanon MD [address] [place] [address] Phone: tel: fax: [facility] Cardiac Progressive Care Unit PCU [address] [place] [address] Phone: tel: Referral ID Status Reason Start [...] BE BASED ON THE PRIMARY CLINICAL RECORDS. [facility] [employer] [facility]. provides no warranty or guarantee of the accuracy or completeness of information in this document.
[2025-05-04 08:23] LABS: Prothrombin Time (Protime)PT. 49.2 SECONDS (11.7-14.9)
== END ==
LOC: OLS.SANC 04:00
DX: Z79.01 Long term (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 anticoagulants (principal)
CPT/HCPCS: 36415; 85610

== ENCOUNTER → 2025-05-07 04:00 | Outpatient (REF) | payer MEDICARE, SELFPAY ==
[2025-05-07 10:36] LABS: Hematocrit 27.6 % (40-54); Hemoglobin 8.8 g/dL (13.0-16.5); Immature Granulocytes Count 0.020 X10^3/uL (0.0-0.0); Mean Corp Hgb Conc 31.9 g/dL (32-36); Mean Corpuscular Volume 88.7 fL (80-94); Mean Platelet Vol. 9.2 fl (6.2-12.0); NRBC Flagged by Analyzer 0 % (0-5); Platelet Count 279 K/mm3 (150-450); RBC Distribution Width CV 16.1 % (11.6-14.6); RBC Distribution Width SD 52.2 fl (35.1-43.9); Red Blood Count 3.11 M/mm3 (4.6-6.2); White Blood Count 6.4 K/mm3 (4.4-11.0)
[2025-05-07 10:53] LABS: Prothrombin Time (Protime)PT. 23.2 SECONDS (11.7-14.9)
[2025-05-07 11:00] LABS: AST(SGOT) 35 U/L (<=37); Alanine Aminotransfer ALT/SGPT 8 U/L (<=46); Albumin, Serum 3.4 g/dL (3.5-5.0); Alkaline Phosphatase 444 U/L (40-129); Anion Gap 14 (5-15); BUN 76 mg/dL (4-19); BUN/Creat Ratio 11.1 RATIO (10-20); Calcium,Total 9.8 mg/dL (7.6-11.0); Carbon Dioxide 24.2 mmol/L (21.0-32.0); Chloride 93 mmol/L (98-108); Globulin 4.5 g/dL (2.2-4.2); Glucose 99 mg/dL (70-99); Potassium 5.4 mmol/L (3.3-5.1)
== END ==
LOC: OLS.SANC 04:00
DX: L89.320 Pressure ulcer of left buttock, unstageable (principal); Z79.01 Long term (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 anticoagulants
CPT/HCPCS: 36415; 80053; 85025; 85610

== ENCOUNTER → 2025-05-10 | Outpatient (REF) | payer MEDICARE, SELFPAY ==
[2025-05-10 10:10] LABS: INR Fingerstick 5.4
[2025-05-10 11:03] LABS: Prothrombin Time (Protime)PT. 44.6 SECONDS (11.7-14.9)
== END ==
LOC: OLS.SANC 05:00
DX: Z79.01 Long term (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 anticoagulants (principal)
CPT/HCPCS: 36415; 36416; 85610

== ENCOUNTER → 2025-05-11 05:00 | Outpatient (REF) | payer MEDICARE, SELFPAY ==
--- OUTSIDE RECORDS SUMMARY | 2025-05-11 04:27 | XMS RPT_ITS | CCD ---
Author Organization [facility] Care Team Providers [facility] [employer] Truck Driver Name Role Phone Matty Candido Unavailable Unavailable Primary Care Provider Unavailrickey Loomis MD, Daryn Cali Primary Care Provider Unavailable Primary Care Provider UnavailCandido Hardy MD Unavailable Daryn Loomis MD Primary Care Provider Candido Starr MD Un[facility] Provider [phone] Kayley Melendrez MD Attending Provider Unava ilable Jayesh Nguyen Attending Provider Unavailab Kayley Cm MD Referring Provider Unava ilable DIETER VILLEGAS Attending Unavailable [facility] Primary Care Unavailable MONTEMAYOR LUCIANO Admitting Unavailable MONTEMAYORJACOBIC Attending Unavailable DA, OCHOAYAPRAKASH Consulting Unavailable [facility] Primary Care Unavailable ELDON ALBA Consulting Unavailable TIFFANIE VILLEGAS Consulting Unavailable DARYN SANTACRUZ Consulting Unavailable CALI ARREDONDO Consulting Unavailable TERRELL, WELLINGTON Consulting Unavailable ANTHONY HURTADO Attending Unavailable [facility] Primary Care Unavailable BETTYE PIERRE Admitting Unavailable BESSIE TAMAYO Attending Unavailable [facility] Primary Care Unavailable [facility] Primary Care Unavailable KEIRY SOLARES Attending Unavailable [facility] Primary Care Unavailable RUBI SANON Admitting Unavailable TERRELL, WELLINGTON Consulting Unavailable [facility] Primary Care Unavailable ANU CASTRO Attending Unavailable [facility] Primary Care Unavailable JESE FRANK Referring Unavailable [facility] Primary Care Unavailable FRANK, JESE Referring Unavailable ELIZABETH, ASHMA Referring Unavailable [facility] [place] Primary Care Unavailable MIKALA DAY Attending Unavailable MIKALA DAY Referring Unavailable [facility] [place] Primary Care Unavailable MONTEMAYOR, LUCIANO Referring Unavailable [facility] [place] Primary Care Unavailable DARYN LOOMIS Primary Care Unavailable JR SHAH Attending Unavailable MIKALA DAY Attending Unavailable [facility] [place] Primary Care Unavailable OSIRIS TERRELL Attending Unavailable [facility] [place] Primary Care Unavailable AMANDA HADDAD Attending Unavailable [facility] [place] Primary Care Unavailable MONTEMAYOR, LUCIANO Referring Unavailable [facility] [place] Primary Care Unavailable QUIANA JEFFERY Admitting Unavailable BARB DAWKINS Attending Unavailable [facility] [place] Primary Care Unavailable JUNE CHAPARRO Consulting Unavailable [place] OLS, Mahaveer Referring Unavail able [...] K[place]ar[place] OLS, Peter Referring Unavailable [place] OLS, Jayesh Attending Unavailable [place] OLS, Kayley Attending Unavail able [place] OLS, Kayley Attending Unavail able [place] OLS, Kayley Attending Unavail able [place] OLS, Kayley Attending Unavail able [place] OLS, Kayley Attending Unavail able [place] OLS, Jayesh Attending Unavailable [place] OLS, Jayesh Attending Unavailable Allergies Allergy Classification Reported Allergen(s) Allergy Type Date of Onset Reaction(s) Facility (11 sources) Lisinopril Drug Allergy 0 Swelling [facility] Work Phone: (20 sources) Lisinopril Allergy to substance 2 Swelling, Angioedema [facility] Medications Current Medications Medication Drug Class(es) [...] (20 sources) Phosphate Binder Start: 5 End: take 1 tablet by mouth three times daily at mealtime sevelamer carbonate (Renvela) 800 MG tablet Indications: ESRD on hemodialysis (CMS/HCC) (HCC) Take 1 tablet (800 mg) by mouth 3 times daily (with meals). Swallow tablet whole; do not crush, break, or chew. 90 tablet 03/01/2025 03/01/2026 Active Start: 08-13-2020 take 3 [...] Comment on above: Take 1,600 mg by [facility] three times daily with meals. Take 3 tablets by mo ut three times daily with meals. sodium chloride 0.111 meq/ml nasal solution (14 sources) Start: 05-07-2025 End: 05-21-2025 sodium chloride (Cameron) 0.65 % nasal spray Administer 1 spray into each nostril 2 times daily for 14 days. 15 mL 05/07/2025 05/21/2025 Active Start: 01-31-2025 End: 02-01-2025 take 10 mL intraluminal route every twelve hours Start: 01-23-2025 End: 02-01-2025 Start: 10-12-2024 End: 10-12-2024 IntraVENous, Continuous PRN, Starting on Brigid 10/12/24 at 0726, Anesthesia Intraprocedure Start: 09-15-2021 0.9 % sodium c hloride infusion sodium chloride flush 0.9 % injection 3 mL (1 source) Start: 10-19-2019 sodium chloride flush 0.9 % injection 3 mL sodium zirconium cyclosilicate 5000 mg powder for oral suspension (20 sources) Start: 03-03-2025 End: 03-21-2025 take 5 g by mouth once daily sodium zirconium cyclosilicate (Lokelma) 5 g packet Take 5 g by mouth daily. 03/04/2025 Active sulfamethoxazole 400 mg / trimethoprim 80 mg oral tablet (2 sources) Dihydrofolate Reductase Inhibitor Antibacterial, Sulfonamide Antimicrobial Start: 05-01-2023 End: 05-04-2023 take 1 tablet by mouth once daily sulfamethoxazole-t rimethoprim (Bactrim) 400-80 MG tablet Take 1 tablet [...] End: 10-12-2024 IntraVENous, As needed, Starting on 10/12/25 at 1025, Anesthesia Intraprocedure albuterol 0.83 mg/ml [...] sodium chloride 0.9 % 100 mL IVPB (Add-[place]) (2 sources) Start: 02-01-2025 End: 02-01-2025 anidulafungin [...] End: 01-22-2025 Start: 01-22-2025 End: 01-22-2025 B Idcnwhh-L-Vyqha Acid (NEPHRO-NATO) 0.8 MG TABS (1 source) Start: 10-14-2020 take 1 tablet by mouth once daily B Hferfnf-W-Ianem Acid (NEPHRO-NATO) 0.8 MG TABS TAKE 1 [...] at 1024, Anesthesia Intraprocedure epoetin rowan-epbx (Retacrit) 96084 UNIT/ML injection (20 sources) Start: 12-04-2024 End: 02-21-2025 inject 0.79 mL by subcutaneous injection every week epoetin rowan-epbx (Retacrit) 21708 UNIT/ML injection Indications: ESRD on Dialysis Inject 0.79 mL (7,900 Units) under the skin 1 (one) time per week. 12/04/2024 02/21/2025 Discontinued (Discontinued by another clinician) Start: 12-04-2024 inject 0.79 mL by bangura bcutaneous injection every week epoetin rowan-epbx (Retacrit) 72711 UNIT/ML injection Indications: ESRD on Dialysis Inject [...] up to 7 days. 11/28/2024 12/05/2024 Active oxymetazoline hydrochloride 0.5 mg/ml nasal spray (2 sources) Start: 05-04-2025 End: 05-04-2025 take 2 spray(s) nasal route once 2 spray, Each Nostril, Once, On Wed05/04/25 at 2220, For 1 dose perfusion prime builder (1 source) Start: 10-12-2024 [...] at 1024, Anesthesia Intraprocedure polyethylene glycol 3350 01220 mg powder for oral solution (6 sources) [...] sodium chloride 5860 mg / sodium sulfate 31118 mg powder for oral solution (6 sources) [...] in dextrose 5 % 1,000 mL infusion sucroferric oxyhydroxide 500 mg chewable tablet (19 sources) Start: 10-08-2023 End: 11-28-2024 Velphoro 500 MG chewable tablet CRUSH OR CHEW AND SWALLOW 2 TABLETS 3 TIMES A DAY WITH MEALS 10/08/2023 11/28/2024 Discontinued (Stop taking at discharge) Start: 12-17-2020 Sucroferric Ox yhydroxide (VELPHORO) 500 MG CHEW Take 3 tablets by mouth 0 12/17/2020 Suspended traMADol hydrochloride 50 mg oral tablet (1 source) Opioid Agonist Start: 10-26-2019 End: 10-26-2019 traMADol (ULTRAM) tablet 50 mg 10 ml tranexamic acid 100 mg/ml injection (2 sources) Antifibrinolytic Agent Start: 05-04-2025 End: 05-04-2025 660 mg (rounded from 667 mg = 10 mg/kg 66.7 kg), Topical, Once, On 05/04/25 at 2220, For 1 dose, Not to exceed 100 mg (1 mL) per minute when given IV. Transfuse platelets (1 source) Start: 10-12-2024 End: [...] Intraprocedure vitamin k1 5 mg oral tablet (6 sources) Warfarin Reversal Agent, Vitamin K Start: 05-05-2025 End: 05-05-2025 take 5 mg by mouth once 5 mg, Oral, Once, On 05/05/25 at 0025, For 1 dose Start: 04-17-2025 End: 04-17-2025 take 5 mg by mouth once 5 mg, Oral, Once, On 03/28 at 1100, For 1 dose Start: 01-22-2025 [...] [Essential (primary) hypertension] Onset: 12-01-2022 Chronic Gangrene (16 sources) Necrosis of anatomical site; Translations: [Gangrene, [...] malnutrition] Onset: 11-20-2024 11-20-2024 Chronic Other aftercare (2 sources) Patient encounter status; Translations: [Encounter for change or removal of nonsurgical wound dressing] 05-07-2025 Episodic Other aftercare (2 sources) Drug therapy finding; Translations: [terminal clerk (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 anticoagulants] 05-07-2025 Episodic Other aftercare (2 sources) terminal clerk (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 anticoagulants; Translations: [alf (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 anticoagulants] Onset: 03-24-2025 Episodic Other aftercare (1 source) Other remote computer terminal operator (current) drug therapy; Translations: [Other residential (current) drug therapy] Onset: 02-28-2025 Episodic Other [...] conditions (not mental disorders or infectious disease) (6 sources) INR raised; Translations: [Abnormal coagulation profile] Onset: 05-04-2025 04-17-2025 Episodic Other skin disorders (1 source) [...] Translations: [Tracheostomy status (HCC)] Onset: 11-30-2024 Chronic Other upper respiratory disease (3 sources) Bleeding from nose; Translations: [Epistaxis] Onset: 05-04-2025 5 Episodic Other upper respiratory disease (1 source) Epistaxis; Translations: [Epistaxis] Onset: 05-04-2025 Episodic Peripheral and visceral atherosclerosis (20 sources) Abnormality [...] Patient encounter status; Translations: [Preoperative testing] Unclassified (5 sources) 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) 05-04-2025 Unclassified (1 source) Other recurrent and persistent [...] and rectum] Onset: 10-03-2024 Episodic Other aftercare (20 sources) Long-term current use of antibiotic; Translations: [terminal clerk (current) use of antibiotics] Onset: 01-12-2025 01-12-2025 Episodic Other aftercare (1 source) alf (current) use of antibiotics; Translations: [terminal clerk (current) use of antibiotics] Onset: 01-12-2025 Episodic [...] sacral region, stage 4 (HCC) 02-01-2025 Unclassified (5 sources) Peripheral arterial disease (HCC) 05-04-2025 Unclassified (1 source) Other recurrent and persistent immunoglobulin A nephropathy; Translations: [Other recurrent and persistent immunoglobulin A nephropathy] Onset: 02-20-2025 Results Test Name Value Interpretation Reference Range Facility CBC W/Diff, Automatedon 04-27 Absolute Lymph 1.26 X10 3/uL Normal 0.83-4.51 [facility] Comment on above: Order Comment: 412.2 Performed By: #### L [id number] #### [facility] [address] [place], [address] Absolute Neut 3.8 X10 3/uL Normal 2.0-7.7 [facility] Comment on above: Order Comment: 412.2 Performed By: #### L [id number] #### [facility] [address] [place], [address] Basophils/100 WBC (Bld) 1.6 % High 0-1 [facility] Comment on above: Order Comment: 412.2 Performed By: #### L [id number] #### [facility] [address] [place], [address] Eosinophils/100 WBC (Bld) 5.6 % High 0-5 [facility] Comment on above: Order Comment: 412.2 Performed By: #### L [id number] #### [facility] [address] [place], [address] Erythrocyte distribution width (RBC) [Ratio] 16.1 % High 11.6-14.6 [facility] Comment on above: Order Comment: 412.2 Performed By: #### L 300.3900 #### [facility] [address] [place], [address] Hematocrit (Bld) [Volume fraction] 27.6 % Low 40-54 [facility] Comment on above: Order Comment: 412.2 Performed By: #### L [id number] #### [facility] [address] [place], [address] Hemoglobin (Bld) [Mass/Vol] 8.8 g/dL Low 13.0-16.5 [facility] Comment on above: Order Comment: 412.2 Performed By: #### L 300.3900 #### [facility] [address] [place], [address] IG% 0.300 Normal 0.0-0.9 [facility] Comment on above: Order Comment: 412.2 Result Comment: IG% - Immature Granulocytes (promyelocytes, myelocytes and metamyelocytes) > 1% indicates that a LEFT SHIFT is Present. Performed By: #### L [id number] #### [facility] [address] [place], [address] Lymphocytes/100 WBC (Bld) 19.6 % Normal 19-41 [facility] Comment on above: Order Comment: 412.2 Performed By: #### L 300.3900 #### [facility] [address] [place], [address] MCH (RBC) [Entitic mass] 28.3 pg Normal 27.0-32.0 [facility] Comment on above: Order Comment: 412.2 Performed By: #### L 300.3900 #### [facility] [address] [place], [address] MCHC (RBC) [Mass/Vol] 31.9 g/dL Low 32-36 [facility] Comment on above: Order Comment: 412.2 Performed By: #### L [id number] #### [facility] [address] [place], [address] MCV (RBC) [Entitic vol] 88.7 fL Normal 80-94 [facility] Comment on above: Order Comment: 412.2 Performed By: #### L [id number] #### [facility] [address] [place], [address] Monocytes/100 WBC (Bld) 14.6 % High 0-10 [facility] Comment on above: Order Comment: 412.2 Performed By: #### L 300.3900 #### [facility] [address] [place], [address] Neutrophils/100 WBC (Bld) 58.3 % Normal 47-70 [facility] Comment on above: Order Comment: 412.2 Performed By: #### L 300.3900 #### [facility] [address] [place], [address] Nucleated RBC (Bld) [#/Vol] 0 10*3/uL Normal 0-5 [facility] Comment on above: Order Comment: 412.2 Performed By: #### L [id number] #### [facility] [address] [place], [address] Platelet mean volume (Bld) [Entitic vol] 9.2 fL Normal 6.2-12.0 [facility] Comment on above: Order Comment: 412.2 Performed By: #### L 300.3900 #### [facility] [address] [place], [address] Platelets (Bld) [#/Vol] 279 10*3/uL Normal 150-450 [facility] Comment on above: Order Comment: 412.2 Performed By: #### L [id number] #### [facility] [address] [place], [address] RBC (Bld) [#/Vol] 3.11 10*6/uL Low 4.6-6.2 [facility] Comment on above: Order Comment: 412.2 Performed By: #### L 300.3900 #### [facility] [address] [place], [address] RDW SD 52.2 fl High 35.1-43.9 [facility] Comment on above: Order Comment: 412.2 Performed By: #### L 300.3900 #### [facility] [address] [place], [address] WBC (Bld) [#/Vol] 6.4 10*3/uL Normal 4.4-11.0 [facility] Comment on above: Order Comment: 412.2 Performed By: #### L [id number] #### [facility] [address] [place], [address] CBC panel Auto (Bld)on 05-07 Erythrocyte distribution width (RBC) [Ratio] 15.8 % High 11.5 - 15.0 % [facility] Hematocrit (Bld) [Volume fraction] 27.9 % Low 40.0 - 52.0 % [facility] Hemoglobin (Bld) [Mass/Vol] 9.3 g/dL Low 13.0 - 18.0 g/dL [facility] Interpretation and review of laboratory results Abnormal [facility] MCH (RBC) [Entitic mass] 28.7 pg 26. 0 - 34.0 pg [facility] MCHC (RBC) [Mass/Vol] 33.3 % 30.5 - 36.0 % [facility] MCV (RBC) [Entitic vol] 86.1 fL 77.0 - 99.0 fL [facility] Platelet mean volume (Bld) [Entitic vol] 9.2 fL 9.0 - 12.7 fL [facility] Comment on above: MPV is a calculated measurement using platelet volume ratio Platelets (Bld) [#/Vol] 266 10*3/uL 140 - 440 10*3/uL [facility] RBC (Bld) [#/Vol] 3.24 10*6/uL Low 4.40 - 5.9 0 10*6/uL [facility] WBC (Bld) [#/Vol] 5.6 10*3/uL 3.6 - 10.7 10*3/uL [facility] Comprehensive Metabolic Prof ilon 05-07-2025 Albumin [Mass/Vol] 3.4 g/dL Low 3.5-5.0 [facility] Comment on above: Order Comment: 412.2 Performed By: #### L 300.3900 #### [facility] [address] [place], [address] Albumin/Globulin [Mass ratio] 0.7 {ratio} Low 0.9-2.4 [facility] Comment on above: Order Comment: 412.2 Performed By: #### L [id number] #### [facility] [address] [place], [address] ALK PHOS 444 U/L High 40-129 [facility] Comment on above: Order Comment: 412.2 Performed By: #### L 300.3900 #### [facility] [address] [place], [address] ALT [Catalytic activity/Vol] 8 U/L Normal <=46 [facility] Comment on above: Order Comment: 412.2 Performed By: #### L 300.3900 #### [facility] [address] [place], [address] AST [Catalytic activity/Vol] 35 U/L Normal <=37 [facility] Comment on above: Order Comment: 412.2 Performed By: #### L [id number] #### [facility] [address] [place], [address] Bilirubin [Mass/Vol] 0.73 mg/dL Normal 0.00-1.30 [facility] Comment on above: Order Comment: 412.2 Performed By: #### L 300.3900 #### [facility] [address] [place], [address] BUN/CRE 11.1 RATIO Normal 10-20 [facility] Comment on above: Order Comment: 412.2 Performed By: #### L [id number] #### [facility] [address] [place], [address] Calcium [Mass/Vol] 9.8 mg/dL Normal 7.6-11.0 [facility] Comment on above: Order Comment: 412.2 Performed By: #### L [id number] #### [facility] [address] [place], [address] Chloride [Moles/Vol] 93 mmol/L Low 98-108 [facility] Comment on above: Order Comment: 412.2 Performed By: #### L [id number] #### [facility] [address] [place], [address] CO2 [Moles/Vol] 24.2 mmol/L Normal 21.0-32.0 [facility] Comment on above: Order Comment: 412.2 Performed By: #### L 300.3900 #### [facility] [address] [place], [address] Creatinine [Mass/Vol] 6.85 mg/dL High 0.70-1.20 [facility] Comment on above: Order Comment: 412.2 Performed By: #### L [id number] #### [facility] [address] [place], [address] GAP 14 Normal 5-15 [facility] Comment on above: Order Comment: 412.2 Performed By: #### L [id number] #### [facility] [address] [place], [address] GFR/1.73 sq M.predicted among non-blacks MDRD (S/P/Bld) [Vol rate/Area] 9 mL/min/{1.73_m2} Low >60 [facility] Comment on above: Order Comment: 412.2 Result Comment: mL/m in/1.73m2 CKD-EPI Creatinine Equation (2020) Performed By: #### L [id number] #### [facility] [address] [place], [address] Globulin (S) [Mass/Vol] 4.5 g/dL High 2.2-4.2 [facility] Comment on above: Order Comment: 412.2 Performed By: #### L [id number] #### [facility] [address] [place], [address] Glucose [Mass/Vol] 99 mg/dL Normal 70-99 [facility] Comment on above: Order Comment: 412.2 Performed By: #### L [id number] #### [facility] [address] [place], [address] Potassium [Moles/Vol] 5.4 mmol/L High 3.3-5.1 [facility] Comment on above: Order Comment: 412.2 Performed By: #### L [id number] #### [facility] [address] [place], [address] Sodium [Moles/Vol] 131 mmol/L Low 133-145 [facility] Comment on above: Order Comment: 412.2 Performed By: #### L [id number] #### [facility] [address] [place], [address] T PROT 7.9 g/dL Normal 5.9-8.4 [facility] Comment on above: Order Comment: 412.2 Performed By: #### L [id number] #### [facility] [address] [place], [address] Urea nitrogen [Mass/Vol] 76 mg/dL High 4-19 [facility] Comment on above: Order Comment: 412.2 Performed By: #### L [id number] #### [facility] [address] [place], [address] Laboratory - Coagulationon 0 05-07-2025 PT Coag (Bld) [Time] 23.8 s High 9.0 - 12.0 s [facility] PT Coag (Bld) [Time]on 05-07 INR Coag (PPP) [Relative time] 2.3 {INR} High 0.9 - 1.1 [facility] Comment on above: Recommended Anticoag ulant [...] Interpretation and review of laboratory results Abnormal [facility] Prothrombin Time w/INRon INR Coag (PPP) [Relative time] 2.0 {INR} Normal [facility] Comment on above: Order Comment: 412.2 Performed By: #### L [id number] #### [facility] [address] [place], [place], [address] PT Coag (PPP) [Time] 23.2 s High 11.7-14.9 [facility] Comment on above: Order Comment: 412.2 Performed By: #### L [id number] #### [facility] [address] [place], [place], [address] Laboratory - CoagulationOrde red By: Sangeeta León on 05-05-2025 PT Coag (Bld) [Time] 49.2 s High 9.0 - 12.0 s [facility] PT Coag (Bld) [Time]Ordered By: Sangeeta León on 05-05-2025 INR Coag (PPP) [Relative time] 5 {INR} Critically high 0.9 - 1.1 [facility] Comment on above: Recommended Anticoag ulant [...] Interpretation and review of laboratory results Abnormal [facility] 29on 05-04-2025 29 Encounter addended by: Fabiola Moy RN on: 05/04/2025 12:32 PM Actions taken: Clinical Note Signed, Charge Capture section accepted Normal [facility] [place] [facility] 37on 05-04-2025 37 Normal [facility] [place] [facility] CBC W Auto Differential pane l (Bld)on 05-04-2025 Basophils (Bld) [#/Vol] 0.1 10*3/uL 0.0 - 0.2 10*3/uL [facility] Basophils/100 WBC (Bld) 1.2 % 0.0 - 2.0 % [facility] Eosinophils (Bld) [#/Vol] 0.2 10*3/uL 0.0 - 0.5 10*3/uL [facility] Eosinophils/100 WBC (Bld) 3.6 % 0.0 - 6.0 % [facility] Erythrocyte distribution width (RBC) [Ratio] 16.2 % High 11.5 - 15.0 % [facility] Hematocrit (Bld) [Volume fraction] 30.9 % Low 40.0 - 52.0 % [facility] Hemoglobin (Bld) [Mass/Vol] 9.9 g/dL Low 13.0 - 18.0 g/dL [facility] Immature granulocytes (Bld) [#/Vol] 0 10*3/uL NINF - 0.1 10*3/uL [facility] Immature granulocytes/100 WBC (Bld) 0.5 % 0.0 - 2.0 % [facility] Interpretation and review of laboratory results Abnormal [facility] Lymphocytes (Bld) [#/Vol] 0.9 10*3/uL Low 1.0 - 4.3 10*3/uL [facility] Lymphocytes/100 WBC (Bld) 15.6 % 15.0 - 45.0 % [facility] MCH (RBC) [Entitic mass] 28.6 pg 26. 0 - 34.0 pg [facility] MCHC (RBC) [Mass/Vol] 32 % 30.5 - 36.0 % [facility] MCV (RBC) [Entitic vol] 89.3 fL 77.0 - 99.0 fL [facility] Monocytes (Bld) [#/Vol] 0.7 10*3/uL 0.0 - 0.9 10*3/uL [facility] Monocytes/100 WBC (Bld) 12.8 % 5.0 - 13.0 % [facility] Neutrophils (Bld) [#/Vol] 3.8 10*3/uL 1.8 - 7.5 10*3/uL [facility] Neutrophils/100 WBC (Bld) 66.3 % 38.0 - 82.0 % [facility] Nucleated RBC/100 WBC (Bld) [Ratio] 0 % [facility] Platelet mean volume (Bld) [Entitic vol] 9.2 fL 9.0 - 12.7 fL [facility] Comment on above: MPV is a calculated measurement using platelet volume ratio Platelets (Bld) [#/Vol] 284 10*3/uL 140 - 440 10*3/uL [facility] RBC (Bld) [#/Vol] 3.46 10*6/uL Low 4.40 - 5.9 0 10*6/uL [facility] WBC (Bld) [#/Vol] 5.8 10*3/uL 3.6 - 10.7 10*3/uL [facility] CBC WITH AUTO DIFFERENTIALon 05-04-2025 Basophils (Bld) [#/Vol] 0.1 10*3/uL Normal 0.0-0.2 [facility] Comment on above: Performed By: #### L [id number] ####Asp Net Programmer: DOMENICA JARA ([phone])[facility]ENTERMatt SMITHALDEN RITTMAN (SWRLAB)[address] [place] [address] [place] Basophils/100 WBC (Bld) 1.2 % Normal 0.0-2.[address] [facility] Comment on above: Performed By: #### L [id number] ####Asp Net Programmer: DOMENICA JARA ([phone])[facility] ALDEN RITTMAN (SWRLAB)[address] [place] [address] [place] Eosinophils (Bld) [#/Vol] 0.2 10*3/uL Normal 0.0-0.5 [facility] Comment on above: Performed By: #### L [id number] ####Asp Net Programmer: DOMENICA JARA ([phone])[facility] AL[place] RITTMAN (SWRLAB)[address] [place] [address] [place] Eosinophils/100 WBC (Bld) 3.6 % Normal 0.0-6.0 [facility] Comment on above: Performed By: #### L [id number] ####Asp Net Programmer: DOMENICA JARA ([phone])[facility] ALDNE RITTMAN (SWRLAB)[address] [place] [address] [place] Erythrocyte distribution width (RBC) [Ratio] 16.2 % High 11.5-15.0 [facility] Comment on above: Performed By: #### L [id number] ####Asp Net Programmer: DOMENICA JARA ([phone])[facility]ENTERMatt BLASTMAN (SWRLAB)[address] [place] [address] Hematocrit (Bld) [Volume fraction] 30.9 % Low 40.0-52.0 [facility] Comment on above: Performed By: #### L [id number] ####Asp Net Programmer: DOMENICA JARA ([phone])[facility]Matt RUANO RITTMAN (SWRLAB)[address] [place] [address] Hemoglobin (Bld) [Mass/Vol] 9.9 g/dL Low 13.0-18.0 [facility] Comment on above: Performed By: #### L [id number] ####Asp Net Programmer: DOMENICA JARA ([phone])[facility]Matt RUANO RITTMAN (SWRLAB)[address] [place] [address] IMMATURE GRANS % 0.5 % Normal 0.0-2.0 [facility] Comment on above: Performed By: #### L [id number] ####Asp Net Programmer: DOMENICA JARA ([phone])[facility]Matt RUANO RITTMAN (SWRLAB)[address] [place] [address] IMMATURE GRANS ABSOLUTE 0.0 10*3/uL Normal <0.1 [facility] Comment on above: Performed By: #### L [id number] ####Asp Net Programmer: DOMENICA JARA ([phone])[facility] RUANO RITTMAN (SWRLAB)[address] [place] [address] Lymphocytes (Bld) [#/Vol] 0.9 10*3/uL Low 1.0-4.3 [facility] Comment on above: Performed By: #### L [id number] ####Asp Net Programmer: DOMENICA JARA ([phone])[facility]Matt RUANO RITTMAN (SWRLAB)[address] [place] [address] [place] Lymphocytes/100 WBC (Bld) 15.6 % Normal 15.0-45.0 [facility] Comment on above: Performed By: #### L [id number] ####Asp Net Programmer: DOMENICA JARA ([phone])[employer] RUANO RITTMAN (SWRLAB)[address] [place] [address] MCH (RBC) [Entitic mass] 28.6 pg Normal 26.0-34.0 [facility] Comment on above: Performed By: #### L [id number] ####Asp Net Programmer: DOMENICA JARA ([phone])[facility]Matt RUANO RITTMAN (SWRLAB)[address] [place] [address] MCHC 32.0 % Normal 30.5-36.0 [facility] Comment on above: Performed By: #### L [id number] ####Asp Net Programmer: DOMENICA JARA ([phone])[facility]ENTERMatt RUANO RITTMAN (SWRLAB)[address] [place] [address] MCV (RBC) [Entitic vol] 89.3 fL Normal 77.0-99.0 [facility] Comment on above: Performed By: #### L [id number] ####Asp Net Programmer: DOMENICA JARA ([phone])[facility]ENTERMatt RUANO RITTMAN (SWRLAB)[address] [place] [address] Monocytes (Bld) [#/Vol] 0.7 10*3/uL Normal 0.0-0.9 [facility] Comment on above: Performed By: #### L [id number] ####Asp Net Programmer: DOMENICA JARA ([phone])[facility]Matt RUANO RITTMAN (SWRLAB)[address] [place] [address] [place] Monocytes/100 WBC (Bld) 12.8 % Normal 5.0-13.0 [facility] Comment on above: Performed By: #### L [id number] ####Asp Net Programmer: DOMENICA JARA ([phone])[facility]ENTERMatt RUANO RITTMAN (SWRLAB)[address] [place] [address] [place] NEUTROPHILS ABSOLUTE 3.8 10*3/uL Normal 1.8-7.5 [facility] Comment on above: Performed By: #### L [id number] ####Asp Net Programmer: DOMENICA JARA ([phone])[facility]ENTERMatt RUANO RITTMAN (SWRLAB)[address] Neutrophils/100 WBC (Bld) 66.3 % Normal 38.0-82.0 [facility] Comment on above: Performed By: #### L [id number] ####Asp Net Programmer: DOMENICA JARA ([phone])[facility]ENTERMatt RUANO RITTMAN (SWRLAB)[address] [place] [address] NRBC 0.0 /100 WBCs Normal 0.0-2.0 [facility] Comment on above: Performed By: #### L [id number] ####Asp Net Programmer: DOMENICA JARA ([phone])[facility]ENTERMatt RUANO RITTMAN (SWRLAB)[address] [place] [address] Platelet mean volume (Bld) [Entitic vol] 9.2 fL Normal 9.0-12.7 [facility] Comment on above: Result Comment: MPV is a calculated measurement using platelet volume ratio Performed By: #### L [id number] ####Asp Net Programmer: DOMENICA JARA ([phone])[facility]ENTERMatt RUANO RITTMAN (SWRLAB)[address] [place] [address] [place] Platelets (Bld) [#/Vol] 284 10*3/uL Normal 140-440 [facility] Comment on above: Performed By: #### L [id number] ####Asp Net Programmer: DOMENICA JARA ([phone])[facility]ENTERMatt RUANO RITTMAN (SWRLAB)[address] [place] [address] RBC (Bld) [#/Vol] 3.46 10*6/uL Low 4.40-5.90 [facility] Comment on above: Performed By: #### L [id number] ####Asp Net Programmer: DOMENICA JARA ([phone])[facility] PREBLEANTHONY (SWRLAB)[address] [place] [address] WBC (Bld) [#/Vol] 5.8 10*3/uL Normal 3.6-10.7 [facility] Comment on above: Performed By: #### L [id number] ####Asp Net Programmer: DOMENICA JARA ([phone])[facility] MATTIE (SWRLAB)[address] [place] [address] ED Nursing Noteon 05-04-2025 ED Nursing Note Patient arrived via squad to room 6. Patient complains of nose bleed that started approx 3 hrs ago. Patient unsure which side is bleeding. Patient denies any pain. Normal [facility] ED Provider Noteon ED Provider Note Normal [facility] No Panel Informationon 05-04 Bessie Tamayo DO 05/05/2025 12:23 AM Epistaxis Management Performed by: Bessie Tamayo DO Authorized by: Bessie Tamayo DO Consent: Consent obtained: Verbal Consent given by: Patient Risks, benefits, and alternatives were discussed: yes Risks discussed: Bleeding Alternatives discussed: No treatment [place] protocol: Procedure explained and questions answered to patient or proxy's satisfaction: yes Patient identity confirmed: Verbally with patient Anesthesia: Anesthesia method: None Procedure details: Treatment site: R anterior and L anterior Treatment method: Anterior pack Treatment complexity: Limited Treatment episode: initial Post-procedure details: Procedure completion: Tolerated [facility] DENIA Salazar CNP 05/04/2025 10:44 AM Debridement Wound/Incision 05/04/25 Pressure Injury Coccyx Posterior Performed by: DENIA Salazar CNP Authorized by: DENIA Salazar CNP Consent Consent obtained? verbal Consent given by: patient Risks discussed? procedural risks discussed Time out called at 05/04/2025 10:40 AM Immediately prior to the procedure a time out was called and the performing provider verified the correct patient, procedure, equipment, clerical support specialist, and site/side marked as required. 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 DELIVERY DRIVER Debridement type: surgical Level of debridement: subcutaneous tissue Pain control: lidocaine 2% Pain control administration type: topical Pre-debridement measurements Length (cm): 6.3 Width (cm): 4.2 Depth (cm): 1.4 Surface Area (cm^2): 20.78 Post-debridement measurements Length (cm): 6.3 Width (cm): 4.2 Depth (cm): 1.4 Percent debrided: 50% Surface Area (cm^2): 20.78 Area Debrided (cm^2): 10.39 Volume (cm^3): 19.4 Tissue and other material debrided: subcutaneous tissue Devitalized tissue debrided: biofilm, exudate and slough Instrument(s) utilized: curette Bleeding: medium Hemostasis obtained with: silver nitrate and pressure Procedural pain (0-10): 0 Post-procedural pain: 0 Response to treatment: procedure was tolerated well [facility] PROTHROMBIN TIMEon INR Coag (PPP) [Relative time] 5.0 {INR} Critically high 0.9-1.1 [facility] Comment on above: Result Comment: Vaughn [...] Myocardial Infarction Performed By: #### Tameka [id number] ####Asp Net Programmer: DOMENICA JARA ([phone])[facility] PowerOasisANTHONY (MipsoLAB)[address] [place] [address] PT Coag (PPP) [Time] 49.2 s High 9.0-12.0 [facility] Comment on above: Performed By: #### L [id number] ####Asp Net Programmer: DOMENICA JARA ([phone])[facility] PowerOasisAN ([email or web address].clRLAB)[address] [place] [address] Progress Noteon 05-04-2025 Progress Note Normal [facility] Prothrombin Time w/INRon INR Coag (PPP) [Relative time] 5.2 {INR} Invalid Interpretation Code [facility] Comment on above: Order Comment: 412.2 Result Comment: CRIT ICAL VALUE CALLED TO BEATA BERG ([facility]) 05/04/25 0830 Brett Stack. RESULTS READ BACK BY SAME. Performed By: #### L 100.0100, L300.3900, L500.4050 #### [facility] [address] [place], [address] PT Coag (PPP) [Time] 49.2 s High 11.7-14.9 [facility] Comment on above: Order Comment: 412.2 Performed By: #### L 100.0100, L300.3900, L500.4050 #### [facility] [address] [place], [address] Prothrombin Time w/INRon INR Coag (PPP) [Relative time] 5.7 {INR} Invalid Interpretation Code [facility] Comment on above: Order Comment: 412.2 Performed By: #### L 100.0100, L300.3900, L500.4050 #### [facility] [address] [place], [address] PT Coag (PPP) [Time] 52.4 s High 11.7-14.9 [facility] Comment on above: Order Comment: 412.2 Performed By: #### L 100.0100, L300.3900, L500.4050 #### [facility] [address] [place], [address] 36on 05-01-2025 36 Normal [facility] 36on 04-30-2025 36 Normal [facility] [place] [facility] CBC W/Diff, Automatedon 08-0 Absolute Lymph 1.23 X10 3/uL Normal 0.83-4.51 [facility] Comment on above: Order Comment: 412.2 Performed By: #### L 300.3900 #### [facility] [address] [place], [address] Absolute Neut 5.0 X10 3/uL Normal 2.0-7.7 [facility] Comment on above: Order Comment: 412.2 Performed By: #### L 300.3900 #### [facility] [address] [place], [address] Basophils/100 WBC (Bld) 1.5 % High 0-1 [facility] Comment on above: Order Comment: 412.2 Performed By: #### L [id number] #### [facility] [address] [place], [address] Eosinophils/100 WBC (Bld) 5.9 % High 0-5 [facility] Comment on above: Order Comment: 412.2 Performed By: #### L 300.3900 #### [facility] [address] [place], [address] Erythrocyte distribution width (RBC) [Ratio] 16.7 % High 11.6-14.6 [facility] Comment on above: Order Comment: 412.2 Performed By: #### L 300.3900 #### [facility] [address] [place], [address] Hematocrit (Bld) [Volume fraction] 30.4 % Low 40-54 [facility] Comment on above: Order Comment: 412.2 Performed By: #### L 300.3900 #### [facility] [address] [place], [address] Hemoglobin (Bld) [Mass/Vol] 9.7 g/dL Low 13.0-16.5 [facility] Comment on above: Order Comment: 412.2 Performed By: #### L 300.3900 #### [facility] [address] [place], [address] IG% 0.400 Normal 0.0-0.9 [facility] Comment on above: Order Comment: 412.2 Result Comment: IG% - Immature Granulocytes (promyelocytes, myelocytes and metamyelocytes) > 1% indicates that a LEFT SHIFT is Present. Performed By: #### L 300.3900 #### [facility] [address] [place], [address] Lymphocytes/100 WBC (Bld) 15.7 % Low 19-41 [facility] Comment on above: Order Comment: 412.2 Performed By: #### L 300.3900 #### [facility] [address] [place], [address] MCH (RBC) [Entitic mass] 29.0 pg Normal 27.0-32.0 [facility] Comment on above: Order Comment: 412.2 Performed By: #### L 300.3900 #### [facility] [address] [place], [address] MCHC (RBC) [Mass/Vol] 31.9 g/dL Low 32-36 [facility] Comment on above: Order Comment: 412.2 Performed By: #### L 300.3900 #### [facility] [address] [place], [address] MCV (RBC) [Entitic vol] 90.7 fL Normal 80-94 [facility] Comment on above: Order Comment: 412.2 Performed By: #### L 300.3900 #### [facility] [address] [place], [address] Monocytes/100 WBC (Bld) 12.7 % High 0-10 [facility] Comment on above: Order Comment: 412.2 Performed By: #### L 300.3900 #### [facility] [address] [place], [address] Neutrophils/100 WBC (Bld) 63.8 % Normal 47-70 [facility] Comment on above: Order Comment: 412.2 Performed By: #### L 300.3900 #### [facility] [address] [place], [address] Nucleated RBC (Bld) [#/Vol] 0 10*3/uL Normal 0-5 [facility] Comment on above: Order Comment: 412.2 Performed By: #### L 300.3900 #### [facility] [address] [place], [address] Platelet mean volume (Bld) [Entitic vol] 9.1 fL Normal 6.2-12.0 [facility] Comment on above: Order Comment: 412.2 Performed By: #### L 300.3900 #### [facility] [address] [place], [address] Platelets (Bld) [#/Vol] 294 10*3/uL Normal 150-450 [facility] Comment on above: Order Comment: 412.2 Performed By: #### L 300.3900 #### [facility] [address] [place], [address] RBC (Bld) [#/Vol] 3.35 10*6/uL Low 4.6-6.2 [facility] Comment on above: Order Comment: 412.2 Performed By: #### L 300.3900 #### [facility] [address] [place], [address] RDW SD 55.3 fl High 35.1-43.9 [facility] Comment on above: Order Comment: 412.2 Performed By: #### L 300.3900 #### [facility] [address] [place], [address] WBC (Bld) [#/Vol] 7.8 10*3/uL Normal 4.4-11.0 [facility] Comment on above: Order Comment: 412.2 Performed By: #### L 300.3900 #### [facility] [address] [place], [address] Comprehensive Metabolic Prof ilon 04-30-2025 Albumin [Mass/Vol] 3.2 g/dL Low 3.5-5.0 [facility] Comment on above: Order Comment: 412.2 Performed By: #### L 300.3900 #### [facility] [address] [place], [address] Albumin/Globulin [Mass ratio] 0.7 {ratio} Low 0.9-2.4 [facility] Comment on above: Order Comment: 412.2 Performed By: #### L 300.3900 #### [facility] [address] [place], [address] ALK PHOS 347 U/L High 40-129 [facility] Comment on above: Order Comment: 412.2 Performed By: #### L 300.3900 #### [facility] [address] [place], [address] ALT [Catalytic activity/Vol] 9 U/L Normal <=46 [facility] Comment on above: Order Comment: 412.2 Performed By: #### L 300.3900 #### [facility] [address] [place], [address] AST [Catalytic activity/Vol] 30 U/L Normal <=37 [facility] Comment on above: Order Comment: 412.2 Performed By: #### L 300.3900 #### [facility] [address] [place], [address] Bilirubin [Mass/Vol] 0.70 mg/dL Normal 0.00-1.30 [facility] Comment on above: Order Comment: 412.2 Performed By: #### L 300.3900 #### [facility] [address] [place], [address] BUN/CRE 10.0 RATIO Normal 10-20 [facility] Comment on above: Order Comment: 412.2 Performed By: #### L 300.3900 #### [facility] [address] [place], [address] Calcium [Mass/Vol] 9.8 mg/dL Normal 7.6-11.0 [facility] Comment on above: Order Comment: 412.2 Performed By: #### L 300.3900 #### [facility] [address] [place], [address] Chloride [Moles/Vol] 93 mmol/L Low 98-108 [facility] Comment on above: Order Comment: 412.2 Performed By: #### L 300.3900 #### [facility] [address] [place], [address] CO2 [Moles/Vol] 24.2 mmol/L Normal 21.0-32.0 [facility] Comment on above: Order Comment: 412.2 Performed By: #### L 300.3900 #### [facility] [address] [place], [address] Creatinine [Mass/Vol] 6.05 mg/dL High 0.70-1.20 [facility] Comment on above: Order Comment: 412.2 Performed By: #### L 300.3900 #### [facility] [address] [place], [address] GAP 13 Normal 5-15 [facility] Comment on above: Order Comment: 412.2 Performed By: #### L 300.3900 #### [facility] [address] [place], [address] GFR/1.73 sq M.predicted among non-blacks MDRD (S/P/Bld) [Vol rate/Area] 10 mL/min/{1.73_m2} Low >60 [facility] Comment on above: Order Comment: 412.2 Result Comment: mL/m in/1.73m2 CKD-EPI Creatinine Equation (2020) Performed By: #### L 300.3900 #### [facility] [address] [place], [address] Globulin (S) [Mass/Vol] 4.5 g/dL High 2.2-4.2 [facility] Comment on above: Order Comment: 412.2 Performed By: #### L 300.3900 #### [facility] [address] [place], [address] Glucose [Mass/Vol] 111 mg/dL High 70-99 [facility] Comment on above: Order Comment: 412.2 Performed By: #### L 300.3900 #### [facility] [address] [place], [address] Potassium [Moles/Vol] 6.3 mmol/L Invalid Interpretation Code 3.3-5.1 [facility] Comment on above: Order Comment: 412.2 Result Comment: Crit ical Result(s) Called at 0943: by: JOSHUA SYED TO ARMAND. ??Results read back by same. Performed By: #### L 300.3900 #### [facility] [address] [place], [address] Sodium [Moles/Vol] 131 mmol/L Low 133-145 [facility] Comment on above: Order Comment: 412.2 Performed By: #### L 300.3900 #### [facility] [address] [place], [address] T PROT 7.8 g/dL Normal 5.9-8.4 [facility] Comment on above: Order Comment: 412.2 Performed By: #### L 300.3900 #### [facility] [address] [place], [address] Urea nitrogen [Mass/Vol] 61 mg/dL High 4-19 [facility] Comment on above: Order Comment: 412.2 Performed By: #### L 300.3900 #### [facility] [address] [place], [address] Prothrombin Time w/INRon INR Coag (PPP) [Relative time] 2.6 {INR} Normal [facility] Comment on above: Order Comment: 412.2 Performed By: #### L 300.3900 #### [facility] [address] [place], [address] PT Coag (PPP) [Time] 28.7 s High 11.7-14.9 [facility] Comment on above: Order Comment: 412.2 Performed By: #### L 300.3900 #### [facility] [address] [place], [address] Prothrombin Time w/INRon INR Coag (PPP) [Relative time] 2.3 {INR} Normal [facility] Comment on above: Order Comment: 412.2 Performed By: #### L 100.0100, L300.3900, L500.4050 #### [facility] [address] [place], [address] PT Coag (PPP) [Time] 26.2 s High 11.7-14.9 [facility] Comment on above: Order Comment: 412.2 Performed By: #### L 100.0100, L300.3900, L500.4050 #### [facility] [address] [place], [address] 36on 04-25-2025 36 Normal [facility] [place] [facility] Prothrombin Time w/INRon INR Coag (PPP) [Relative time] 3.0 {INR} Normal [facility] Comment on above: Order Comment: 412-2 Performed By: #### L 300.3900 #### [facility] [address] [place], [address] PT Coag (PPP) [Time] 31.5 s High 11.7-14.9 [facility] Comment on above: Order Comment: 412-2 Performed By: #### L 300.3900 #### [facility] [address] [place], [address] Comprehensive Metabolic Prof ilon 04-24-2025 Albumin [Mass/Vol] 3.1 g/dL Low 3.5-5.0 [facility] Comment on above: Order Comment: 412.2 Performed By: #### L 100.0100, L300.3900, L500.4050 #### [facility] [address] [place], [address] Albumin/Globulin [Mass ratio] 0.7 {ratio} Low 0.9-2.4 [facility] Comment on above: Order Comment: 412.2 Performed By: #### L 100.0100, L300.3900, L500.4050 #### [facility] [address] [place], [address] ALK PHOS 373 U/L High 40-129 [facility] Comment on above: Order Comment: 412.2 Performed By: #### L 100.0100, L300.3900, L500.4050 #### [facility] [address] [place], [address] ALT [Catalytic activity/Vol] 9 U/L Normal <=46 [facility] Comment on above: Order Comment: 412.2 Performed By: #### L 100.0100, L300.3900, L500.4050 #### [facility] [address] [place], [address] AST [Catalytic activity/Vol] 32 U/L Normal <=37 [facility] Comment on above: Order Comment: 412.2 Performed By: #### L 100.0100, L300.3900, L500.4050 #### [facility] [address] [place], [address] Bilirubin [Mass/Vol] 0.61 mg/dL Normal 0.00-1.30 [facility] Comment on above: Order Comment: 412.2 Performed By: #### L 100.0100, L300.3900, L500.4050 #### [facility] [address] [place], [address] BUN/CRE 11.1 RATIO Normal 10-20 [facility] Comment on above: Order Comment: 412.2 Performed By: #### L 100.0100, L300.3900, L500.4050 #### [facility] [address] [place], [address] Calcium [Mass/Vol] 10.0 mg/dL Normal 7.6-11.0 [facility] Comment on above: Order Comment: 412.2 Performed By: #### L 100.0100, L300.3900, L500.4050 #### [facility] [address] [place], [address] Chloride [Moles/Vol] 97 mmol/L Low 98-108 [facility] Comment on above: Order Comment: 412.2 Performed By: #### L 100.0100, L300.3900, L500.4050 #### [facility] [address] [place], [address] CO2 [Moles/Vol] 26.3 mmol/L Normal 21.0-32.0 [facility] Comment on above: Order Comment: 412.2 Performed By: #### L 100.0100, L300.3900, L500.4050 #### [facility] [address] [place], [address] Creatinine [Mass/Vol] 4.72 mg/dL High 0.70-1.20 [facility] Comment on above: Order Comment: 412.2 Performed By: #### L 100.0100, L300.3900, L500.4050 #### [facility] [address] [place], [address] GAP 12 Normal 5-15 [facility] Comment on above: Order Comment: 412.2 Performed By: #### L 100.0100, L300.3900, L500.4050 #### [facility] [address] [place], [address] GFR/1.73 sq M.predicted among non-blacks MDRD (S/P/Bld) [Vol rate/Area] 13 mL/min/{1.73_m2} Low >60 [facility] Comment on above: Order Comment: 412.2 Result Comment: mL/m in/1.73m2 CKD-EPI Creatinine Equation (2020) Performed By: #### L 100.0100, L300.3900, L500.4050 #### [facility] [address] [place], [address] Globulin (S) [Mass/Vol] 4.6 g/dL High 2.2-4.2 [facility] Comment on above: Order Comment: 412.2 Performed By: #### L 100.0100, L300.3900, L500.4050 #### [facility] [address] [place], [address] Glucose [Mass/Vol] 86 mg/dL Normal 70-99 [facility] Comment on above: Order Comment: 412.2 Performed By: #### L 100.0100, L300.3900, L500.4050 #### [facility] [address] [place], [address] Potassium [Moles/Vol] 5.6 mmol/L High 3.3-5.1 [facility] Comment on above: Order Comment: 412.2 Performed By: #### L 100.0100, L300.3900, L500.4050 #### [facility] [address] [place], [address] Sodium [Moles/Vol] 135 mmol/L Normal 133-145 [facility] Comment on above: Order Comment: 412.2 Performed By: #### L 100.0100, L300.3900, L500.4050 #### [facility] [address] [place], [address] T PROT 7.7 g/dL Normal 5.9-8.4 [facility] Comment on above: Order Comment: 412.2 Performed By: #### L 100.0100, L300.3900, L500.4050 #### [facility] [address] [place], [address] Urea nitrogen [Mass/Vol] 52 mg/dL High 4-19 [facility] Comment on above: Order Comment: 412.2 Performed By: #### L 100.0100, L300.3900, L500.4050 #### [facility] [address] [place], [address] Prothrombin Time w/INRon INR Coag (PPP) [Relative time] 4.3 {INR} Invalid Interpretation Code [facility] Comment on above: Order Comment: 412.2 Result Comment: CRIT ICAL VALUE CALLED TO JANUSZ PITT ([facility]) 04/24/25 0858 Brett Stack. RESULTS READ BACK BY SAME. Performed By: #### L 100.0100, L300.3900, L500.4050 #### [facility] [address] [place], [address] PT Coag (PPP) [Time] 42.3 s High 11.7-14.9 [facility] Comment on above: Order Comment: 412.2 Performed By: #### L 100.0100, L300.3900, L500.4050 #### [facility] [address] [place], [address] CBC W/Diff, Automatedon 07-2 Absolute Lymph 0.95 X10 3/uL Normal 0.83-4.51 [facility] Comment on above: Order Comment: 412.2 Performed By: #### L 100.0100, L300.3900, L500.4050 #### [facility] [address] [place], [address] Absolute Neut 4.2 X10 3/uL Normal 2.0-7.7 [facility] Comment on above: Order Comment: 412.2 Performed By: #### L 100.0100, L300.3900, L500.4050 #### [facility] [address] [place], [address] Basophils/100 WBC (Bld) 1.5 % High 0-1 [facility] Comment on above: Order Comment: 412.2 Performed By: #### L 100.0100, L300.3900, L500.4050 #### [facility] [address] [place], [address] Eosinophils/100 WBC (Bld) 5.7 % High 0-5 [facility] Comment on above: Order Comment: 412.2 Performed By: #### L 100.0100, L300.3900, L500.4050 #### [facility] [address] [place], [address] Erythrocyte distribution width (RBC) [Ratio] 17.1 % High 11.6-14.6 [facility] Comment on above: Order Comment: 412.2 Performed By: #### L 100.0100, L300.3900, L500.4050 #### [facility] [address] [place], [address] Hematocrit (Bld) [Volume fraction] 29.3 % Low 40-54 [facility] Comment on above: Order Comment: 412.2 Performed By: #### L 100.0100, L300.3900, L500.4050 #### [facility] [address] [place], [address] Hemoglobin (Bld) [Mass/Vol] 9.4 g/dL Low 13.0-16.5 [facility] Comment on above: Order Comment: 412.2 Performed By: #### L 100.0100, L300.3900, L500.4050 #### [facility] [address] [place], [address] IG% 0.800 Normal 0.0-0.9 [facility] Comment on above: Order Comment: 412.2 Result Comment: IG% - Immature Granulocytes (promyelocytes, myelocytes and metamyelocytes) > 1% indicates that a LEFT SHIFT is Present. Performed By: #### L 100.0100, L300.3900, L500.4050 #### [facility] [address] [place], [address] Lymphocytes/100 WBC (Bld) 14.6 % Low 19-41 [facility] Comment on above: Order Comment: 412.2 Performed By: #### L 100.0100, L300.3900, L500.4050 #### [facility] [address] [place], [address] MCH (RBC) [Entitic mass] 29.6 pg Normal 27.0-32.0 [facility] Comment on above: Order Comment: 412.2 Performed By: #### L 100.0100, L300.3900, L500.4050 #### [facility] [address] [place], [address] MCHC (RBC) [Mass/Vol] 32.1 g/dL Normal 32-36 [facility] Comment on above: Order Comment: 412.2 Performed By: #### L 100.0100, L300.3900, L500.4050 #### [facility] [address] [place], [address] MCV (RBC) [Entitic vol] 92.1 fL Normal 80-94 [facility] Comment on above: Order Comment: 412.2 Performed By: #### L 100.0100, L300.3900, L500.4050 #### [facility] [address] [place], [address] Monocytes/100 WBC (Bld) 12.6 % High 0-10 [facility] Comment on above: Order Comment: 412.2 Performed By: #### L 100.0100, L300.3900, L500.4050 #### [facility] [address] [place], [address] Neutrophils/100 WBC (Bld) 64.8 % Normal 47-70 [facility] Comment on above: Order Comment: 412.2 Performed By: #### L 100.0100, L300.3900, L500.4050 #### [facility] [address] [place], [address] Nucleated RBC (Bld) [#/Vol] 0 10*3/uL Normal 0-5 [facility] Comment on above: Order Comment: 412.2 Performed By: #### L 100.0100, L300.3900, L500.4050 #### [facility] [address] [place], [address] Platelet mean volume (Bld) [Entitic vol] 9.4 fL Normal 6.2-12.0 [facility] Comment on above: Order Comment: 412.2 Performed By: #### L 100.0100, L300.3900, L500.4050 #### [facility] [address] [place], [address] Platelets (Bld) [#/Vol] 357 10*3/uL Normal 150-450 [facility] Comment on above: Order Comment: 412.2 Performed By: #### L 100.0100, L300.3900, L500.4050 #### [facility] [address] [place], [address] RBC (Bld) [#/Vol] 3.18 10*6/uL Low 4.6-6.2 [facility] Comment on above: Order Comment: 412.2 Performed By: #### L 100.0100, L300.3900, L500.4050 #### [facility] [address] [place], [address] RDW SD 57.9 fl High 35.1-43.9 [facility] Comment on above: Order Comment: 412.2 Performed By: #### L 100.0100, L300.3900, L500.4050 #### [facility] [address] [place], [address] WBC (Bld) [#/Vol] 6.5 10*3/uL Normal 4.4-11.0 [facility] Comment on above: Order Comment: 412.2 Performed By: #### L 100.0100, L300.3900, L500.4050 #### [facility] [address] [place], [address] Comprehensive Metabolic Prof [facility] 04-23-2025 Albumin [Mass/Vol] 3.1 g/dL Low 3.5-5.0 [facility] Comment on above: Order Comment: 412.2 Performed By: #### L 100.0100, L300.3900, L500.4050 #### [facility] [address] [place], [address] Albumin/Globulin [Mass ratio] 0.7 {ratio} Low 0.9-2.4 [facility] Comment on above: Order Comment: 412.2 Performed By: #### L 100.0100, L300.3900, L500.4050 #### [facility] [address] [place], [address] ALK PHOS 352 U/L High 40-129 [facility] Comment on above: Order Comment: 412.2 Performed By: #### L 100.0100, L300.3900, L500.4050 #### [facility] [address] [place], [address] ALT [Catalytic activity/Vol] 8 U/L Normal <=46 [facility] Comment on above: Order Comment: 412.2 Performed By: #### L 100.0100, L300.3900, L500.4050 #### [facility] [address] [place], [address] AST [Catalytic activity/Vol] 32 U/L Normal <=37 [facility] Comment on above: Order Comment: 412.2 Performed By: #### L 100.0100, L300.3900, L500.4050 #### [facility] [address] [place], [address] Bilirubin [Mass/Vol] 0.58 mg/dL Normal 0.00-1.30 [facility] Comment on above: Order Comment: 412.2 Performed By: #### L 100.0100, L300.3900, L500.4050 #### [facility] [address] [place], [address] BUN/CRE 12.2 RATIO Normal 10-20 [facility] Comment on above: Order Comment: 412.2 Performed By: #### L 100.0100, L300.3900, L500.4050 #### [facility] [address] [place], [address] Calcium [Mass/Vol] 10.0 mg/dL Normal 7.6-11.0 [facility] Comment on above: Order Comment: 412.2 Performed By: #### L 100.0100, L300.3900, L500.4050 #### [facility] [address] [place], [address] Chloride [Moles/Vol] 99 mmol/L Normal 98-108 [facility] Comment on above: Order Comment: 412.2 Performed By: #### L 100.0100, L300.3900, L500.4050 #### [facility] [address] [place], [address] CO2 [Moles/Vol] 22.3 mmol/L Normal 21.0-32.0 [facility] Comment on above: Order Comment: 412.2 Performed By: #### L 100.0100, L300.3900, L500.4050 #### [facility] [address] [place], [address] Creatinine [Mass/Vol] 5.69 mg/dL High 0.70-1.20 [facility] Comment on above: Order Comment: 412.2 Performed By: #### L 100.0100, L300.3900, L500.4050 #### [facility] [address] [place], [address] GAP 13 Normal 5-15 [facility] Comment on above: Order Comment: 412.2 Performed By: #### L 100.0100, L300.3900, L500.4050 #### [facility] [address] [place], [address] GFR/1.73 sq M.predicted among non-blacks MDRD (S/P/Bld) [Vol rate/Area] 11 mL/min/{1.73_m2} Low >60 [facility] Comment on above: Order Comment: 412.2 Result Comment: mL/m in/1.73m2 CKD-EPI Creatinine Equation (2020) Performed By: #### L 100.0100, L300.3900, L500.4050 #### [facility] [address] [place], [address] Globulin (S) [Mass/Vol] 4.4 g/dL High 2.2-4.2 [facility] Comment on above: Order Comment: 412.2 Performed By: #### L 100.0100, L300.3900, L500.4050 #### [facility] [address] [place], [address] Glucose [Mass/Vol] 109 mg/dL High 70-99 [facility] Comment on above: Order Comment: 412.2 Performed By: #### L 100.0100, L300.3900, L500.4050 #### [facility] [address] [place], [address] Potassium [Moles/Vol] 5.9 mmol/L High 3.3-5.1 [facility] Comment on above: Order Comment: 412.2 Performed By: #### L 100.0100, L300.3900, L500.4050 #### [facility] [address] [place], [address] Sodium [Moles/Vol] 135 mmol/L Normal 133-145 [facility] Comment on above: Order Comment: 412.2 Performed By: #### L 100.0100, L300.3900, L500.4050 #### [facility] [address] [place], [address] T PROT 7.5 g/dL Normal 5.9-8.4 [facility] Comment on above: Order Comment: 412.2 Performed By: #### L 100.0100, L300.3900, L500.4050 #### [facility] [address] [place], [address] Urea nitrogen [Mass/Vol] 70 mg/dL High 4-19 [facility] Comment on above: Order Comment: 412.2 Performed By: #### L 100.0100, L300.3900, L500.4050 #### [facility] [address] [place], [address] Prothrombin Time w/INRon 07- 28-2025 INR Coag (PPP) [Relative time] 3.5 {INR} Normal [facility] Comment on above: Order Comment: 412.2 Performed By: #### L 100.0100, L300.3900, L500.4050 #### [facility] [address] [place], [address] PT Coag (PPP) [Time] 36.1 s High 11.7-14.9 [facility] Comment on above: Order Comment: 412.2 Performed By: #### L 100.0100, L300.3900, L500.4050 #### [facility] [address] [place], [address] 36on 04-20-2025 36 Normal [facility] [place] [facility] Prothrombin Time w/INRon INR Coag (PPP) [Relative time] 2.8 {INR} Normal [facility] Comment on above: Order Comment: 412.2 Performed By: #### L 100.0100, L300.3900, L500.4050 #### [facility] [address] [place], [address] PT Coag (PPP) [Time] 29.8 s High 11.7-14.9 [facility] Comment on above: Order Comment: 412.2 Performed By: #### L 100.0100, L300.3900, L500.4050 #### [facility] [address] [place], [address] Prothrombin Time w/INRon INR Coag (PPP) [Relative time] 3.4 {INR} Normal [facility] Comment on above: Order Comment: 412.2 Performed By: #### L 300.3900 #### [facility] [address] [place], [address] PT Coag (PPP) [Time] 35.0 s High 11.7-14.9 [facility] Comment on above: Order Comment: 412.2 Performed By: #### L 300.3900 #### [facility] [address] [place], [address] Prothrombin Time w/INRon INR Coag (PPP) [Relative time] 5.2 {INR} Invalid Interpretation Code [facility] Comment on above: Order Comment: 412.2 Result Comment: CRIT ICAL VALUE CALLED TO ROCHELLE BERG ([facility]) 04/18/25 0842 Brett Stack. RESULTS READ BACK BY SAME. Performed By: #### L 100.0100, L300.3900, L500.4050 #### [facility] [address] [place], [address] PT Coag (PPP) [Time] 48.9 s High 11.7-14.9 [facility] Comment on above: Order Comment: 412.2 Performed By: #### L 100.0100, L300.3900, L500.4050 #### [facility] [address] [place], [address] Protime w/INR Fingerstickon 04-18-2025 INR Coag (PPP) [Relative time] 6.0 {INR} Invalid Interpretation Code [facility] Comment on above: Result Comment: Crit ical Value > 4.0 Performed By: #### L 300.3900 #### [facility] [address] [place], [address] Protime [place]agsen 56.7 SEC High 11.7-14.9 [facility] Comment on above: Performed By: #### L 300.3900 #### [facility] [address] [place], [address] CBC W Auto Differential pane l (Bld)on 04-17-2025 Basophils (Bld) [#/Vol] 0.1 10*3/uL 0.0 - 0.2 10*3/uL [facility] Basophils/100 WBC (Bld) 1.4 % 0.0 - 2.0 % [facility] Eosinophils (Bld) [#/Vol] 0.2 10*3/uL 0.0 - 0.5 10*3/uL [facility] Eosinophils/100 WBC (Bld) 3.3 % 0.0 - 6.0 % [facility] Erythrocyte distribution width (RBC) [Ratio] 16.6 % High 11.5 - 15.0 % [facility] Hematocrit (Bld) [Volume fraction] 29.6 % Low 40.0 - 52.0 % [facility] Hemoglobin (Bld) [Mass/Vol] 9.6 g/dL Low 13.0 - 18.0 g/dL [facility] Immature granulocytes (Bld) [#/Vol] 0 10*3/uL NINF - 0.1 10*3/uL [facility] Immature granulocytes/100 WBC (Bld) 0.4 % 0.0 - 2.0 % [facility] Interpretation and review of laboratory results Abnormal [facility] Lymphocytes (Bld) [#/Vol] 1 10*3/uL 1.0 - 4.3 10*3/uL [facility] Lymphocytes/100 WBC (Bld) 13.3 % Low 15.0 - 45.0 % [facility] MCH (RBC) [Entitic mass] 29.3 pg 26. 0 - 34.0 pg [facility] MCHC (RBC) [Mass/Vol] 32.4 % 30.5 - 36.0 % [facility] MCV (RBC) [Entitic vol] 90.2 fL 77.0 - 99.0 fL [facility] Monocytes (Bld) [#/Vol] 1.1 10*3/uL High 0.0 - 0.9 10*3/uL [facility] Monocytes/100 WBC (Bld) 15.2 % High 5.0 - 13.0 % [facility] Neutrophils (Bld) [#/Vol] 4.8 10*3/uL 1.8 - 7.5 10*3/uL [facility] Neutrophils/100 WBC (Bld) 66.4 % 38.0 - 82.0 % [facility] Nucleated RBC/100 WBC (Bld) [Ratio] 0 % [facility] Platelet mean volume (Bld) [Entitic vol] 9.3 fL 9.0 - 12.7 fL [facility] Platelets (Bld) [#/Vol] 381 10*3/uL 140 - 440 10*3/uL [facility] RBC (Bld) [#/Vol] 3.28 10*6/uL Low 4.40 - 5.9 0 10*6/uL [facility] WBC (Bld) [#/Vol] 7.3 10*3/uL 3.6 - 10.7 10*3/uL [facility] CBC WITH AUTO DIFFERENTIALon 04-17-2025 Basophils (Bld) [#/Vol] 0.1 10*3/uL Normal 0.0-0.2 [facility] Comment on above: Performed By: #### L [id number] ####[employer] Programmer: FENG CONSTANTINO ([phone])[facility] ([facility])[address] [place] [address] Basophils/100 WBC (Bld) 1.4 % Normal 0.0-2.0 [facility] Comment on above: Performed By: #### L [id number] ####[employer] Programmer: FENG CONSTANTINO ([phone])[facility] ([facility])[address] [place] [address] Eosinophils (Bld) [#/Vol] 0.2 10*3/uL Normal 0.0-0.5 [facility] Comment on above: Performed By: #### L [id number] ####[employer] Programmer: FENG CONSTANTINO ([phone])[facility] ([facility])[address] Eosinophils/100 WBC (Bld) 3.3 % Normal 0.0-6.0 [facility] Comment on above: Performed By: #### L [id number] ####[employer] Programmer: FENG CONSTANTINO ([phone])[facility] ([facility])[address] [place] [address] Erythrocyte distribution width (RBC) [Ratio] 16.6 % High 11.5-15.0 [facility] Comment on above: Performed By: #### L [id number] ####[employer] Programmer: FENG CONSTANTINO ([phone])[facility] [place] ([facility])[address] [place] [address] Hematocrit (Bld) [Volume fraction] 29.6 % Low 40.0-52.0 [facility] Comment on above: Performed By: #### L [id number] ####[employer] Programmer: FENG DOUGIE ([phone])[facility])[address] Hemoglobin (Bld) [Mass/Vol] 9.6 g/dL Low 13.0-18.0 [facility] Comment on above: Performed By: #### L [id number] ####[employer] Programmer: FENG CONSTANTINO ([phone])[facility] ([facility])[address] [place] [address] IMMATURE GRANS % 0.4 % Normal 0.0-2.0 [facility] Comment on above: Performed By: #### L [id number] ####[employer] Programmer: FENG CONSTANTINO ([phone])[facility] [place] [address] IMMATURE GRANS ABSOLUTE 0.0 10*3/uL Normal <0.1 [facility] Comment on above: Performed By: #### L [id number] ####[employer] Programmer: FENG DOUGIE ([phone])[facility] ([facility])[address] Lymphocytes (Bld) [#/Vol] 1.0 10*3/uL Normal 1.0-4.3 [facility] Comment on above: Performed By: #### L [id number] ####[employer] Programmer: FENG DOUGIE ([phone])[facility] ([facility])[address] [place] [address] Lymphocytes/100 WBC (Bld) 13.3 % Low 15.0-45.0 [facility] Comment on above: Performed By: #### L [id number] ####[employer] Programmer: FENG DAHLIAMitzyGEORGE ([phone])[facility] ([facility])[address] MCH (RBC) [Entitic mass] 29.3 pg Normal 26.0-34.0 [facility] Comment on above: Performed By: #### L [id number] ####[employer] Programmer: FENG DOUGIE ([phone])[facility] ([facility])[address] MCHC 32.4 % Normal 30.5-36.0 [facility] Comment on above: Performed By: #### L [id number] ####[employer] Programmer: FENG DOUGIE ([phone])[facility] ([facility])[address] [place] [address] MCV (RBC) [Entitic vol] 90.2 fL Normal 77.0-99.0 [facility] Comment on above: Performed By: #### L [id number] ####[employer] Programmer: FENG DOUGIE ([phone])[facility] ([facility])[address] Monocytes (Bld) [#/Vol] 1.1 10*3/uL High 0.0-0.9 [facility] Comment on above: Performed By: #### L [id number] ####[employer] Programmer: FENG CONSTANTINO ([phone])[facility] [place] ([facility])[address] Monocytes/100 WBC (Bld) 15.2 % High 5.0-13.0 [facility] Comment on above: Performed By: #### L [id number] ####[employer] Programmer: FENG COLEGEORGE ([phone])[facility] [place] ([facility])[address] NEUTROPHILS ABSOLUTE 4.8 10*3/uL Normal 1.8-7.5 [facility] Comment on above: Performed By: #### L [id number] ####[employer] Programmer: FENG VILLAGOMEZMitzyGEORGE ([phone])[facility] [place] ([facility])[address] Neutrophils/100 WBC (Bld) 66.4 % Normal 38.0-82.0 [facility] Comment on above: Performed By: #### L [id number] ####[employer] Programmer: FENG DOUGIE ([phone])[facility] ([facility])[address] NRBC 0.0 /100 WBCs Normal 0.0-2.0 [facility] Comment on above: Performed By: #### L [id number] ####[employer] Programmer: EFNG DOUGIE ([phone])[facility] ([facility])[address] Platelet mean volume (Bld) [Entitic vol] 9.3 fL Normal 9.0-12.7 [facility] Comment on above: Performed By: #### L [id number] ####[employer] Programmer: FENG DOUGIE ([phone])[facility] CENTERMatt [facility] (SB[facility]AB)[address] Platelets (Bld) [#/Vol] 381 10*3/uL Normal 140-440 [facility] Comment on above: Performed By: #### L [id number] ####Asp Net Programmer: FENG COLEGEORGE ([phone])[facility] ([facility])[address] RBC (Bld) [#/Vol] 3.28 10*6/uL Low 4.40-5.90 [facility] Comment on above: Performed By: #### L [id number] ####Asp Net Programmer: FENG COLEGEORGE ([phone])[facility] (SB[facility])[address] WBC (Bld) [#/Vol] 7.3 10*3/uL Normal 3.6-10.7 [facility] Comment on above: Performed By: #### L [id number] ####Asp Net Programmer: FENG CONSTANTINO ([phone])[facility] [place] (SBHLAB)[address] COMPREHENSIVE METABOLIC PANE Victor M 04-17-2025 Albumin [Mass/Vol] 2.3 g/dL Low 3.5-5.0 [facility] Comment on above: Performed By: #### L AB17 ####Asp Net Programmer: FENG CONSTANTINO ([phone])[facility] [place] (SBHLAB)[address] ALP [Catalytic activity/Vol] 294 U/L High 40-150 [facility] Comment on above: Performed By: #### L AB17 ####Asp Net Programmer: FENG CONSTANTINO ([phone])[facility] [place] (SBHLAB)[address] ALT [Catalytic activity/Vol] 6 U/L Normal <40 [facility] Comment on above: Performed By: #### L AB17 ####Asp Net Programmer: FENG CONSTANTINO ([phone])[facility] [place] (SBHLAB)[address] Anion gap [Moles/Vol] 11 mmol/L Normal 3-13 [facility] Comment on above: Performed By: #### L AB17 ####Asp Net Programmer: FENG CONSTANTINO ([phone])[facility] [place] (SBHLAB)[address] AST [Catalytic activity/Vol] 57 U/L High <34 [facility] Comment on above: Performed By: #### L AB17 ####Asp Net Programmer: FENG CONSTANTINO ([phone])[facility] [place] (SBHLAB)[address] Bilirubin [Mass/Vol] 0.7 mg/dL Normal <1.[address] [facility] Comment on above: Performed By: #### L AB17 ####Asp Net Programmer: FENG CONSTANTINO ([phone])[facility] [place] (SBHLAB)[address] Calcium [Mass/Vol] 9.5 mg/dL Normal 8.4-10.2 [facility] Comment on above: Performed By: #### L AB17 ####Asp Net Programmer: FENG CONSTANTINO ([phone])[facility]ENTERMatt [place] (SBHLAB)[address] Chloride [Moles/Vol] 100 mmol/L Normal 98-107 [facility] Comment on above: Performed By: #### L AB17 ####Asp Net Programmer: FENG CONSTANTINO ([phone])[facility] (SBHLAB)[address] CO2 [Moles/Vol] 25 mmol/L Normal 22-29 [facility] Comment on above: Performed By: #### L AB17 ####Asp Net Programmer: FENG CONSTANTINO ([phone])[facility] (SBHLAB)[address] Creatinine [Mass/Vol] 4.18 mg/dL High 0.72-1.25 [facility] Comment on above: Performed By: #### L AB17 ####Asp Net Programmer: FENG CONSTANTINO ([phone])[facility]ENTERMatt [facility] (SBHLAB)[address] [place] [address] [place] GLOMERULAR FILTRATION RATE ML/MIN/1.73 SQ M.PREDICTED 15.6 mL/min/1.73m*2 Low >60.0 [facility] Comment on above: Result Comment: Calc ulation based on the Chronic Kidney Disease Epidemiology Collaboration (CKD-EPI) equation refit without adjustment for race Performed By: #### L AB17 ####Asp Net Programmer: FENG CONSTANTINO ([phone])[facility] (SBHLAB)[address] [place] [address] [place] Glucose [Mass/Vol] 98 mg/dL Normal 74-100 [facility] Comment on above: Performed By: #### L AB17 ####Asp Net Programmer: FENG CONSTANTINO ([phone])[facility] [place] (SBHLAB)[address] Potassium [Moles/Vol] 5.7 mmol/L High 3.5-5.1 [facility] Comment on above: Result Comment: [facility] potassium values may be up to 0.5 mmol/L lower than serum values. Performed By: #### L AB17 ####Asp Net Programmer: FENG CONSTANTINO ([phone])[facility] [place] (SBHLAB)[address] Protein [Mass/Vol] 7.7 g/dL Normal 6.4-8.3 [facility] Comment on above: Performed By: #### L AB17 ####Asp Net Programmer: FENG CONSTANTINO ([phone])[facility] (SBHLAB)[address] Sodium [Moles/Vol] 136 mmol/L Normal 136-145 [facility] Comment on above: Performed By: #### L AB17 ####Asp Net Programmer: FENG CONSTANTINO ([phone])[facility] (SBHLAB)[address] Urea nitrogen [Mass/Vol] 48 mg/dL High 9-23 [facility] Comment on above: Performed By: #### L AB17 ####Asp Net Programmer: FENG CONSTANTINO ([phone])[facility] (SBHLAB)[address] Comprehensive metabolic 1998 panelon 04-17-2025 Albumin [Mass/Vol] 2.3 g/dL Low 3.5 - 5.0 g/dL [facility] ALP [Catalytic activity/Vol] 294 U/L High 40 - 150 U/L [facility] ALT [Catalytic activity/Vol] 6 U/L NINF - 40 U/L [facility] Anion gap [Moles/Vol] 11 mmol/L 3 - 13 mmol/L [facility] AST [Catalytic activity/Vol] 57 U/L High NINF - 34 U/L [facility] Bilirubin [Mass/Vol] 0.7 mg/dL NINF - 1.2 mg/dL [facility] Calcium [Mass/Vol] 9.5 mg/dL 8.4 - 10. 2 mg/dL [facility] Chloride [Moles/Vol] 100 mmol/L 98 - 10 7 mmol/L [facility] CO2 [Moles/Vol] 25 mmol/L 22 - 29 mmol/L [facility] Creatinine [Mass/Vol] 4.18 mg/dL High 0.72 - 1.25 mg/dL [facility] GFR/1.73 sq M.predicted (S/P/Bld) [Vol rate/Area] 15.6 mL/min Low - PINF [facility] Comment on above: Calculation based on the Chronic Kidney Disease Epidemiology Collaboration (CKD-EPI) equation refit without adjustment for race Glucose [Mass/Vol] 98 mg/dL 74 - 100 mg/dL [facility] Interpretation and review of laboratory results Abnormal [facility] Potassium [Moles/Vol] 5.7 mmol/L High 3.5 - 5.1 mmol/L [facility] Comment on above: Plasma potassium macey ues may be up to 0.5 mmol/L lower than serum values. Protein [Mass/Vol] 7.7 g/dL 6.4 - 8.3 g/dL [facility] Sodium [Moles/Vol] 136 mmol/L 136 - 145 mmol/L [facility] Urea nitrogen [Mass/Vol] 48 mg/dL High 9 - 23 mg/d L [facility] ED Nursing Noteon 04-17-2025 ED Nursing Note Report called to [facility]. Normal [facility] ED Nursing Note PIV placed, blood collected for lab work, pt states it hurts and he does not want an PIV left in, If I leave it he will rip it out. PIV Dc'd Normal [facility] ED Provider Noteon 5 ED Provider Note Normal [facility] - CoagulationOrde red By: Yifan Howard on 04-17-2025 PT Coag (Bld) [Time] s High 9.0 - 12.0 s [facility] PROTHROMBIN TIMEon 5 INR Coag (PPP) [Relative time] {INR} Critically high 0.9-1.1 [facility] Comment on above: Performed By: #### L [id number] ####Asp Net Programmer: FENG CONSTANTINO ([phone])[facility] (SBHLAB)155 [place], [place] [id number] [place] [address] PT Coag (PPP) [Time] s High 9.0-12.0 [facility] Comment on above: Performed By: #### L [id number] ####Asp Net Programmer: FENG FELIXCER ([phone])[facility] (SBHLAB)155 [place], [place] [id number] [place] [address] PT Coag (Bld) [Time]Ordered By: Yifan Howard on 04-17-2025 INR Coag (PPP) [Relative time] Critically high 0.9 - 1.1 [facility] Interpretation and review of laboratory results Abnormal [facility] Prothrombin Time w/INRon INR Coag (PPP) [Relative time] 10.8 {INR} Invalid Interpretation Code [facility] Comment on above: Order Comment: 412.2 Result Comment: CRIT ICAL VALUE CALLED TO LEXX BERG [facility] 04/17/25 0831 Brett Stack. RESULTS READ BACK BY SAME. Performed By: #### L 100.0100, L300.3900, L500.4050 #### [facility] [address] [place], [address] PT Coag (PPP) [Time] 87.5 s High 11.7-14.9 [facility] Comment on above: Order Comment: 412.2 Performed By: #### L 100.0100, L300.3900, L500.4050 #### [facility] [address] [place], [address] CBC W/Diff, Automatedon 03-28 Absolute Lymph 0.94 X10 3/uL Normal 0.83-4.51 [facility] Comment on above: Order Comment: 412.2 Performed By: #### L 100.0100, L300.3900, [id number] #### [facility] [address] [place], [address] Absolute Neut 3.9 X10 3/uL Normal 2.0-7.7 [facility] Comment on above: Order Comment: 412.2 Performed By: #### L 100.0100, L300.3900, [id number] #### [facility] [address] [place], [address] Basophils/100 WBC (Bld) 1.7 % High 0-1 [facility] Comment on above: Order Comment: 412.2 Performed By: #### L 100.0100, L300.3900, [id number] #### [facility] [address] [place], [address] Eosinophils/100 WBC (Bld) 4.3 % Normal 0-5 [facility] Comment on above: Order Comment: 412.2 Performed By: #### L 100.0100, L300.3900, [id number] #### [facility] [address] [place], [address] Erythrocyte distribution width (RBC) [Ratio] 16.3 % High 11.6-14.6 [facility] Comment on above: Order Comment: 412.2 Performed By: #### L 100.0100, L300.3900, L500.4050 #### [facility] [address] [place], [address] Hematocrit (Bld) [Volume fraction] 29.3 % Low 40-54 [facility] Comment on above: Order Comment: 412.2 Performed By: #### L 100.0100, L300.3900, [id number] #### [facility] [address] [place], [address] Hemoglobin (Bld) [Mass/Vol] 9.4 g/dL Low 13.0-16.5 [facility] Comment on above: Order Comment: 412.2 Performed By: #### L 100.0100, L300.3900, L500.4050 #### [facility] [address] [place], [address] IG% 0.800 Normal 0.0-0.9 [facility] Comment on above: Order Comment: 412.2 Result Comment: IG% - Immature Granulocytes (promyelocytes, myelocytes and metamyelocytes) > 1% indicates that a LEFT SHIFT is Present. Performed By: #### L 100.0100, L300.3900, L500.4050 #### [facility] [address] [place], [address] Lymphocytes/100 WBC (Bld) 15.7 % Low 19-41 [facility] Comment on above: Order Comment: 412.2 Performed By: #### L 100.0100, L300.3900, [id number] #### [facility] [address] [place], [address] MCH (RBC) [Entitic mass] 29.7 pg Normal 27.0-32.0 [facility] Comment on above: Order Comment: 412.2 Performed By: #### L 100.0100, L300.3900, [id number] #### [facility] [address] [place], [address] MCHC (RBC) [Mass/Vol] 32.1 g/dL Normal 32-36 [facility] Comment on above: Order Comment: 412.2 Performed By: #### L 100.0100, L300.3900, [id number] #### [facility] [address] [place], [address] MCV (RBC) [Entitic vol] 92.4 fL Normal 80-94 [facility] Comment on above: Order Comment: 412.2 Performed By: #### L 100.0100, L300.3900, [id number] #### [facility] [address] [place], [address] Monocytes/100 WBC (Bld) 13.0 % High 0-10 [facility] Comment on above: Order Comment: 412.2 Performed By: #### L 100.0100, L300.3900, [id number] #### [facility] [address] [place], [address] Neutrophils/100 WBC (Bld) 64.5 % Normal 47-70 [facility] Comment on above: Order Comment: 412.2 Performed By: #### L 100.0100, L300.3900, [id number] #### [facility] [address] [place], [address] Nucleated RBC (Bld) [#/Vol] 0 10*3/uL Normal 0-5 [facility] Comment on above: Order Comment: 412.2 Performed By: #### L 100.0100, L300.3900, [id number] #### [facility] [address] [place], [address] Platelet mean volume (Bld) [Entitic vol] 9.5 fL Normal 6.2-12.0 [facility] Comment on above: Order Comment: 412.2 Performed By: #### L 100.0100, L300.3900, [id number] #### [facility] [address] [place], [address] Platelets (Bld) [#/Vol] 397 10*3/uL Normal 150-450 [facility] Comment on above: Order Comment: 412.2 Performed By: #### L 100.0100, L300.3900, [id number] #### [facility] [address] [place], [address] RBC (Bld) [#/Vol] 3.17 10*6/uL Low 4.6-6.2 [facility] Comment on above: Order Comment: 412.2 Performed By: #### L 100.0100, L300.3900, [id number] #### [facility] [address] [place], [address] RDW SD 54.5 fl High 35.1-43.9 [facility] Comment on above: Order Comment: 412.2 Performed By: #### L 100.0100, L300.3900, [id number] #### [facility] [address] [place], [address] WBC (Bld) [#/Vol] 6.0 10*3/uL Normal 4.4-11.0 [facility] Comment on above: Order Comment: 412.2 Performed By: #### L 100.0100, L300.3900, [id number] #### [facility] [address] [place], [address] CT CHEST WO IV CONTRASTon CT CHEST WO IV CONTRAST Normal S [facility] Comprehensive Metabolic Prof ilon 04-16-2025 Albumin [Mass/Vol] 3.1 g/dL Low 3.5-5.0 [facility] Comment on above: Order Comment: 412.2 Performed By: #### L 100.0100, L300.3900, L500.4050 #### [facility] [address] [place], [address] Albumin/Globulin [Mass ratio] 0.7 {ratio} Low 0.9-2.4 [facility] Comment on above: Order Comment: 412.2 Performed By: #### L 100.0100, L300.3900, L500.4050 #### [facility] [address] [place], [address] ALK PHOS 331 U/L High 40-129 [facility] Comment on above: Order Comment: 412.2 Performed By: #### L 100.0100, L300.3900, [id number] #### [facility] [address] [place], [address] ALT [Catalytic activity/Vol] 13 U/L Normal <=46 [facility] Comment on above: Order Comment: 412.2 Performed By: #### L 100.0100, L300.3900, [id number] #### [facility] [address] [place], [address] AST [Catalytic activity/Vol] 41 U/L High <=37 [facility] Comment on above: Order Comment: 412.2 Performed By: #### L 100.0100, L300.3900, [id number] #### [facility] [address] [place], [address] Bilirubin [Mass/Vol] 0.68 mg/dL Normal 0.00-1.30 [facility] Comment on above: Order Comment: 412.2 Performed By: #### L 100.0100, L300.3900, [id number] #### [facility] [address] [place], [address] BUN/CRE 13.0 RATIO Normal 10-20 [facility] Comment on above: Order Comment: 412.2 Performed By: #### L 100.0100, L300.3900, [id number] #### [facility] [address] [place], [address] Calcium [Mass/Vol] 10.2 mg/dL Normal 7.6-11.0 [facility] Comment on above: Order Comment: 412.2 Performed By: #### L 100.0100, L300.3900, [id number] #### [facility] [address] [place], [address] Chloride [Moles/Vol] 96 mmol/L Low 98-108 [facility] Comment on above: Order Comment: 412.2 Performed By: #### L 100.0100, L300.3900, L500.4050 #### [facility] [address] [place], [address] CO2 [Moles/Vol] 22.7 mmol/L Normal 21.0-32.0 [facility] Comment on above: Order Comment: 412.2 Performed By: #### L 100.0100, L300.3900, [id number] #### [facility] [address] [place], [address] Creatinine [Mass/Vol] 5.22 mg/dL High 0.70-1.20 [facility] Comment on above: Order Comment: 412.2 Performed By: #### L 100.0100, L300.3900, [id number] #### [facility] [address] [place], [address] GAP 16 High 5-15 [facility] Comment on above: Order Comment: 412.2 Performed By: #### L 100.0100, L300.3900, L500.4050 #### [facility] [address] [place], [address] GFR/1.73 sq M.predicted among non-blacks MDRD (S/P/Bld) [Vol rate/Area] 12 mL/min/{1.73_m2} Low >60 [facility] Comment on above: Order Comment: 412.2 Result Comment: mL/m in/1.73m2 CKD-EPI Creatinine Equation (2020) Performed By: #### L 100.0100, L300.3900, L500.4050 #### [facility] [address] [place], [address] Globulin (S) [Mass/Vol] 4.4 g/dL High 2.2-4.2 [facility] Comment on above: Order Comment: 412.2 Performed By: #### L 100.0100, L300.3900, L500.4050 #### [facility] [address] [place], [address] Glucose [Mass/Vol] 91 mg/dL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 [facility] Creatinine [Mass/Vol] 3.52 mg/dL High 0.72 - 1.25 mg/dL [facility] GFR/1.73 sq M.predicted (S/P/Bld) [Vol rate/Area] 19.1 mL/min Low - PINF [facility] Comment on above: Calculation based on the Chronic Kidney Disease Epidemiology Collaboration (CKD-EPI) equation refit without adjustment for race Glucose [Mass/Vol] 94 mg/dL 74 - 100 mg/dL [facility] Interpretation and review of laboratory results Abnormal [facility] Potassium [Moles/Vol] 5.5 mmol/L High 3.5 - 5.1 mmol/L [facility] Comment on above: Plasma potassium macey ues may be up to 0.5 mmol/L lower than serum values. Sodium [Moles/Vol] 140 mmol/L 136 - 145 mmol/L [facility] Urea nitrogen [Mass/Vol] 34 mg/dL High 9 - 23 mg/d L [facility] CBC W Auto Differential pane l (Bld)Ordered By: Yifan Howard on 04-05-2025 Basophils (Bld) [#/Vol] 0.1 10*3/uL 0.0 - 0.2 10*3/uL [facility] Basophils/100 WBC (Bld) 1.5 % 0.0 - 2.0 % [facility] Eosinophils (Bld) [#/Vol] 0.2 10*3/uL 0.0 - 0.5 10*3/uL [facility] Eosinophils/100 WBC (Bld) 3.5 % 0.0 - 6.0 % [facility] Erythrocyte distribution width (RBC) [Ratio] 16 % High 11.5 - 15.0 % [facility] Hematocrit (Bld) [Volume fraction] 30.1 % Low 40.0 - 52.0 % [facility] Hemoglobin (Bld) [Mass/Vol] 9.3 g/dL Low 13.0 - 18.0 g/dL [facility] Immature granulocytes (Bld) [#/Vol] 0 10*3/uL NINF - 0.1 10*3/uL [facility] Immature granulocytes/100 WBC (Bld) 0.4 % 0.0 - 2.0 % [facility] Interpretation and review of laboratory results Abnormal [facility] Lymphocytes (Bld) [#/Vol] 1.1 10*3/uL 1.0 - 4.3 10*3/uL [facility] Lymphocytes/100 WBC (Bld) 15.4 % 15.0 - 45.0 % [facility] MCH (RBC) [Entitic mass] 29.5 pg 26. 0 - 34.0 pg [facility] MCHC (RBC) [Mass/Vol] 30.9 % 30.5 - 36.0 % [facility] MCV (RBC) [Entitic vol] 95.6 fL 77.0 - 99.0 fL [facility] Monocytes (Bld) [#/Vol] 0.9 10*3/uL 0.0 - 0.9 10*3/uL [facility] Monocytes/100 WBC (Bld) 13.2 % High 5.0 - 13.0 % [facility] Neutrophils (Bld) [#/Vol] 4.5 10*3/uL 1.8 - 7.5 10*3/uL [facility] Neutrophils/100 WBC (Bld) 66 % 38.0 - 82.0 % [facility] Nucleated RBC/100 WBC (Bld) [Ratio] 0 % [facility] Platelet mean volume (Bld) [Entitic vol] 8.8 fL Low 9.0 - 12.7 fL [facility] Platelets (Bld) [#/Vol] 329 10*3/uL 140 - 440 10*3/uL [facility] RBC (Bld) [#/Vol] 3.15 10*6/uL Low 4.40 - 5.9 0 10*6/uL [facility] WBC (Bld) [#/Vol] 6.8 10*3/uL 3.6 - 10.7 10*3/uL [facility] CBC WITH AUTO DIFFERENTIALon 04-05-2025 Basophils (Bld) [#/Vol] 0.1 10*3/uL Normal 0.0-0.2 [facility] Comment on above: Performed By: #### L [id number] ####Asp Net Programmer: FENG CONSTANTINO ([phone])[facility] (SBHLAB)[address] [place] [address] Basophils/100 WBC (Bld) 1.5 % Normal 0.0-2.0 [facility] Comment on above: Performed By: #### L [id number] ####Asp Net Programmer: FENG CONSTANTINO ([phone])[facility] [place] (SBHLAB)[address] [place] [address] Eosinophils (Bld) [#/Vol] 0.2 10*3/uL Normal 0.0-0.5 [facility] Comment on above: Performed By: #### L [id number] ####Asp Net Programmer: FENG CONSTANTINO ([phone])[facility] [place] (SBHLAB)[address] [place] [address] [place] Eosinophils/100 WBC (Bld) 3.5 % Normal 0.0-6.0 [facility] Comment on above: Performed By: #### L [id number] ####Asp Net Programmer: FENG CONSTANTINO ([phone])[facility] [place] ([facility])[address] Erythrocyte distribution width (RBC) [Ratio] 16.0 % High 11.5-15.0 [facility] Comment on above: Performed By: #### L [id number] ####Asp Net Programmer: FENG COLEGEORGE ([phone])[facility] [place] (SB[facility])[address] Hematocrit (Bld) [Volume fraction] 30.1 % Low 40.0-52.0 [facility] Comment on above: Performed By: #### L [id number] ####Asp Net Programmer: FENG COLEGEORGE ([phone])[facility] [place] (SB[facility])[address] Hemoglobin (Bld) [Mass/Vol] 9.3 g/dL Low 13.0-18.0 [facility] Comment on above: Performed By: #### L [id number] ####Asp Net Programmer: FENG CONSTANTINO ([phone])[facility] [place] ([facility])[address] IMMATURE GRANS % 0.4 % Normal 0.0-2.0 [facility] Comment on above: Performed By: #### L [id number] ####Asp Net Programmer: FENG COLEGEORGE ([phone])[facility] [place] ([facility])[address] IMMATURE GRANS ABSOLUTE 0.0 10*3/uL Normal <0.1 [facility] Comment on above: Performed By: #### L [id number] ####Asp Net Programmer: FENG CONSTANTINO ([phone])[facility] [place] (SB[facility])[address] Lymphocytes (Bld) [#/Vol] 1.1 10*3/uL Normal 1.0-4.3 [facility] Comment on above: Performed By: #### L [id number] ####Asp Net Programmer: FENG CONSTANTINO ([phone])[facility] [place] ([facility])[address] Lymphocytes/100 WBC (Bld) 15.4 % Normal 15.0-45.0 [facility] Comment on above: Performed By: #### L [id number] ####Asp Net Programmer: FENG CONSTANTINO ([phone])[facility] [place] ([facility])[address] MCH (RBC) [Entitic mass] 29.5 pg Normal 26.0-34.0 [facility] Comment on above: Performed By: #### L [id number] ####Asp Net Programmer: FENG CONSTANTINO ([phone])[facility] [place] ([facility])[address] MCHC 30.9 % Normal 30.5-36.0 [facility] Comment on above: Performed By: #### L [id number] ####Asp Net Programmer: FENG CONSTANTINO ([phone])[facility] [place] ([facility])[address] MCV (RBC) [Entitic vol] 95.6 fL Normal 77.0-99.0 [facility] Comment on above: Performed By: #### L [id number] ####Asp Net Programmer: FENG CONSTANTINO ([phone])[facility] [place] (SB[facility])[address] [place] [address] Monocytes (Bld) [#/Vol] 0.9 10*3/uL Normal 0.0-0.9 [facility] Comment on above: Performed By: #### L [id number] ####Asp Net Programmer: FENG CONSTANTINO ([phone])[facility] [place] ([facility])[address] Monocytes/100 WBC (Bld) 13.2 % High 5.0-13.0 [facility] Comment on above: Performed By: #### L [id number] ####Asp Net Programmer: FENG CONSTANTINO ([phone])[facility] (SB[facility])[address] NEUTROPHILS ABSOLUTE 4.5 10*3/uL Normal 1.8-7.5 [facility] Comment on above: Performed By: #### L [id number] ####Asp Net Programmer: FENG CONSTANTINO ([phone])[facility] [place] ([facility])[address] Neutrophils/100 WBC (Bld) 66.0 % Normal 38.0-82.0 [facility] Comment on above: Performed By: #### L [id number] ####Asp Net Programmer: FENG CONSTANTINO ([phone])[facility] [place] ([facility])[address] NRBC 0.0 /100 WBCs Normal 0.0-2.0 [facility] Comment on above: Performed By: #### L [id number] ####Asp Net Programmer: FENG CONSTANTINO ([phone])[facility] [place] ([facility])[address] Platelet mean volume (Bld) [Entitic vol] 8.8 fL Low 9.0-12.7 [facility] Comment on above: Performed By: #### L [id number] ####Asp Net Programmer: FENG CONSTANTINO ([phone])[facility] [place] ([facility])[address] Platelets (Bld) [#/Vol] 329 10*3/uL Normal 140-440 [facility] Comment on above: Performed By: #### L [id number] ####Asp Net Programmer: FENG CONSTANTINO ([phone])[facility] [place] ([facility])[address] RBC (Bld) [#/Vol] 3.15 10*6/uL Low 4.40-5.90 [facility] Comment on above: Performed By: #### L [id number] ####Asp Net Programmer: FENG CONSTANTINO ([phone])[facility] [place] ([facility])[address] WBC (Bld) [#/Vol] 6.8 10*3/uL Normal 3.6-10.7 [facility] Comment on above: Performed By: #### L [id number] ####Asp Net Programmer: FENG CONSTANTINO ([phone])[facility] [place] (SBHLAB)[address] ECG 12-LEADon 04-05-2025 ECG 12-LEAD IMPRESSION: Atrial flutter with varied AV block, Right axis deviation Repol abnrm, severe global ischemia (LM/MVD) Prolonged QT interval Electronically Signed On 04-05-2025 10:13:24 EDT by Dieter Villegas Normal [facility] ED Nursing Noteon 04-05-2025 ED Nursing Note Dialysis at bedside. Normal [facility] ED Nursing Note Pt has no complaints at this time. Normal [facility] ED Nursing Note Normal [facility] ED Provider Noteon ED Provider Note Normal [facility] HIGH SENSITIVITY TROPONIN, S ERIAL BASELINEon 04-05-2025 TROPONIN HS SERIAL BASELINE 36 ng/L High <=35 [facility] Comment on above: Result Comment: In i ndividuals presenting with symptoms > 2h, a baseline troponin <= 5 ng/L suggests acutecardiac injury is unlikely and further serial testing is generally not indicated. Performed By: #### L [id number], [id number] ####Asp Net Programmer: FENG CONSTANTINO ([phone])[facility] [place] (SBHLAB)[address] [place] [address] HIGH SENSITIVITY TROPONIN, S ERIAL, SECOND TESTon 04-05-2025 2H TROPONIN HS (SERIAL 2ND TROPONIN) 29 ng/L Normal <=35 [facility] Comment on above: Result Comment: Risi ng or falling troponin delta between 2 ??? 15 ng/L as compared to baseline value requires a 3rd serial troponin Performed By: #### L [id number] ####Asp Net Programmer: FENG CONSTANTINO ([phone])[facility] (SBHLAB)[address] Laboratory - Coagulationon 0 04-05-2025 PT Coag (Bld) [Time] 26.3 s High 9.0 - 12.0 s [facility] No Panel Informationon 04-05 2h Troponin HS (Serial 2nd Troponin) 29 ng/L NINF - 35 ng/L [facility] Comment on above: Rising or falling tr oponin delta between 2 15 ng/L as compared to baseline value requires a 3rd serial troponin Interpretation and review of laboratory results Normal [facility] Interpretation and review of laboratory results Abnormal [facility] Troponin HS Serial Baseline 36 ng/L High NINF - 35 ng/L [facility] Comment on above: In individuals prese nting with symptoms > 2h, a baseline troponin <= 5 ng/L suggests acute cardiac injury is unlikely and further serial testing is generally not indicated. [facility] P [place] 0 degrees [facility] NV Interval 0 ms [facility] QRS [place] 101 degrees [facility] QRSD Interval 102 ms [facility] 361 ms [facility] QTC Interval 510 ms [facility] T Wave [place] 0 degrees [facility] Atrial flutter with varied AV block, Right axis deviation Repol abnrm, severe global ischemia (LM/MVD) Prolonged QT interval Electronically Signed On 04-05-2025 10:13:24 EDT by Dieter Villegas CV Dieter Iyer MD - 04/05/2025 IMPRESSION: Atrial flutter with varied AV block, Right axis deviation Repol abnrm, severe global ischemia (LM/MVD) Prolonged QT interval Electronically Signed On 04-05-2025 10:13:24 EDT by Dieter Villegas [facility] Nursing Noteon 04-05-2025 Nursing Note Normal [facility] PROTHROMBIN TIMEon INR Coag (PPP) [Relative time] 2.6 {INR} High 0.9-1.1 [facility] Comment on above: Result Comment: Vaughn [...] Myocardial Infarction Performed By: #### L [id number] ####Asp Net Programmer: FENG CONSTANTINO ([phone])[facility] [place] (SBHLAB)[address] [place] [address] [facility] PT Coag (PPP) [Time] 26.3 s High 9.0-12.0 [facility] Comment on above: Performed By: #### L [id number] ####Asp Net Programmer: FENG CONSTANTINO ([phone])[facility] (SBHLAB)[address] [place] [address] [place] PT Coag (Bld) [Time]on 04-05 INR Coag (PPP) [Relative time] 2.6 {INR} High 0.9 - 1.1 [facility] Comment on above: Recommended Anticoag ulant [...] Interpretation and review of laboratory results Abnormal [facility] Protime w/INR Fingerstickon 04-05-2025 INR Coag (PPP) [Relative time] 2.7 {INR} Normal [facility] Comment on above: Result Comment: Crit ical Value > 4.0 Performed By: #### L 100.0100, L300.3900, [id number] #### [facility] [address] [place], [place], [id number] Protime [place] 28.2 SEC High 11.7-14.9 [facility] Comment on above: Performed By: #### L 100.0100, L300.3900, [id number] #### [facility] [address] [place], [address] Vital signson 04-05-2025 Heart rate 120 /min bpm [facility] [place] XR Chest 2 Viewson Cardiomegaly with median [...] Electronically Signed Date/Time: 04/05/2025 11:36 AM EDT [facility] Patient Name: JUN SNYDER : [...] the spine are present at multiple levels. [facility] Devonte Bocanegra MD - 04/05/2025 Patient [...] Electronically Signed Date/Time: 04/05/2025 11:36 AM EDT [facility] Radiology Study observation (narrative) [facility] alth XR Chest 2 ViewsOrdered By: Devonte Bocanegra on 04-05-2025 [facility] Work Phone: 36on 04-04-2025 36 noted Normal [facility] 36 Normal [facility] 36 Patient is still in facility. I spoke with his nurse, Chandrika, and she stated that he is suppose to be discharging around 04/26. She is not sure where he will be going. I will call belt back operator to that date and speak with the social services designee. Normal [facility] 36on 04-02-2025 36 Called patient to confirm appointment with Maryann in [place] 04/03/25, and he is at [facility]. Spoke to Rosa and left message for nurse to call about appointment. Normal [facility] CBC W/Diff, Automatedon 07 Absolute Lymph 0.83 X10 3/uL Normal 0.83-4.51 [facility] Comment on above: Order Comment: 412.2 Performed By: #### L 100.0100, L300.3900, [id number] #### [facility] [address] [place], [place], [id number] Absolute Neut 4.2 X10 3/uL Normal 2.0-7.7 [facility] Comment on above: Order Comment: 412.2 Performed By: #### L 100.0100, L300.3900, [id number] #### [facility] [address] [place], [address] Basophils/100 WBC (Bld) 1.9 % High 0-1 [facility] Comment on above: Order Comment: 412.2 Performed By: #### L 100.0100, L300.3900, [id number] #### [facility] [address] [place], [address] Eosinophils/100 WBC (Bld) 3.5 % Normal 0-5 [facility] Comment on above: Order Comment: 412.2 Performed By: #### L 100.0100, L300.3900, [id number] #### [facility] [address] [place], [address] Erythrocyte distribution width (RBC) [Ratio] 16.3 % High 11.6-14.6 [facility] Comment on above: Order Comment: 412.2 Performed By: #### L 100.0100, L300.3900, [id number] #### [facility] [address] [place], [address] Hematocrit (Bld) [Volume fraction] 32.8 % Low 40-54 [facility] Comment on above: Order Comment: 412.2 Performed By: #### L 100.0100, L300.3900, [id number] #### [facility] [address] [place], [address] Hemoglobin (Bld) [Mass/Vol] 10.1 g/dL Low 13.0-16.5 [facility] Comment on above: Order Comment: 412.2 Performed By: #### L 100.0100, L300.3900, [id number] #### [facility] [address] [place], [address] IG% 0.500 Normal 0.0-0.9 [facility] Comment on above: Order Comment: 412.2 Result Comment: IG% - Immature Granulocytes (promyelocytes, myelocytes and metamyelocytes) > 1% indicates that a LEFT SHIFT is Present. Performed By: #### L 100.0100, L300.3900, [id number] #### [facility] [address] [place], [address] Lymphocytes/100 WBC (Bld) 13.2 % Low 19-41 [facility] Comment on above: Order Comment: 412.2 Performed By: #### L 100.0100, L300.3900, [id number] #### [facility] [address] [place], [address] MCH (RBC) [Entitic mass] 30.1 pg Normal 27.0-32.0 [facility] Comment on above: Order Comment: 412.2 Performed By: #### L 100.0100, L300.3900, [id number] #### [facility] [address] [place], [address] MCHC (RBC) [Mass/Vol] 30.8 g/dL Low 32-36 [facility] Comment on above: Order Comment: 412.2 Performed By: #### L 100.0100, L300.3900, [id number] #### [facility] [address] [place], [address] MCV (RBC) [Entitic vol] 97.6 fL High 80-94 [facility] Comment on above: Order Comment: 412.2 Performed By: #### L 100.0100, L300.3900, [id number] #### [facility] [address] [place], [address] Monocytes/100 WBC (Bld) 14.3 % High 0-10 [facility] Comment on above: Order Comment: 412.2 Performed By: #### L 100.0100, L300.3900, [id number] #### [facility] [address] [place], [address] Neutrophils/100 WBC (Bld) 66.6 % Normal 47-70 [facility] Comment on above: Order Comment: 412.2 Performed By: #### L 100.0100, L300.3900, [id number] #### [facility] [address] [place], [address] Nucleated RBC (Bld) [#/Vol] 0 10*3/uL Normal 0-5 [facility] Comment on above: Order Comment: 412.2 Performed By: #### L 100.0100, L300.3900, [id number] #### [facility] [address] [place], [address] Platelet mean volume (Bld) [Entitic vol] 9.4 fL Normal 6.2-12.0 [facility] Comment on above: Order Comment: 412.2 Performed By: #### L 100.0100, L300.3900, [id number] #### [facility] [address] [place], [address] Platelets (Bld) [#/Vol] 383 10*3/uL Normal 150-450 [facility] Comment on above: Order Comment: 412.2 Performed By: #### L 100.0100, L300.3900, [id number] #### [facility] [address] [place], [address] RBC (Bld) [#/Vol] 3.36 10*6/uL Low 4.6-6.2 [facility] Comment on above: Order Comment: 412.2 Performed By: #### L 100.0100, L300.3900, [id number] #### [facility] [address] [place], [address] RDW SD 58.6 fl High 35.1-43.9 [facility] Comment on above: Order Comment: 412.2 Performed By: #### L 100.0100, L300.3900, [id number] #### [facility] [address] [place], [address] WBC (Bld) [#/Vol] 6.3 10*3/uL Normal 4.4-11.0 [facility] Comment on above: Order Comment: 412.2 Performed By: #### L 100.0100, L300.3900, [id number] #### [facility] [address] [place], [address] Comprehensive Metabolic Prof ncon 04-02-2025 Albumin [Mass/Vol] 3.2 g/dL Low 3.5-5.0 [facility] Comment on above: Order Comment: 412.2 Performed By: #### L 100.0100, L300.3900, [id number] #### [facility] [address] [place], [address] Albumin/Globulin [Mass ratio] 0.8 {ratio} Low 0.9-2.4 [facility] Comment on above: Order Comment: 412.2 Performed By: #### L 100.0100, L300.3900, [id number] #### [facility] [address] [place], [address] ALK PHOS 229 U/L High 40-129 [facility] Comment on above: Order Comment: 412.2 Performed By: #### L 100.0100, L300.3900, [id number] #### [facility] [address] [place], [address] ALT [Catalytic activity/Vol] 20 U/L Normal <=46 [facility] Comment on above: Order Comment: 412.2 Performed By: #### L 100.0100, L300.3900, [id number] #### [facility] [address] [place], [address] AST [Catalytic activity/Vol] 46 U/L High <=37 [facility] Comment on above: Order Comment: 412.2 Performed By: #### L 100.0100, L300.3900, [id number] #### [facility] [address] [place], [address] Bilirubin [Mass/Vol] 0.74 mg/dL Normal 0.00-1.30 [facility] Comment on above: Order Comment: 412.2 Performed By: #### L 100.0100, L300.3900, [id number] #### [facility] [address] [place], [address] BUN/CRE 8.2 RATIO Low 10-20 [facility] Comment on above: Order Comment: 412.2 Performed By: #### L 100.0100, L300.3900, [id number] #### [facility] [address] [place], [address] Calcium [Mass/Vol] 9.9 mg/dL Normal 7.6-11.0 [facility] Comment on above: Order Comment: 412.2 Performed By: #### L 100.0100, L300.3900, [id number] #### [facility] [address] [place], [address] Chloride [Moles/Vol] 98 mmol/L Normal 98-108 [facility] Comment on above: Order Comment: 412.2 Performed By: #### L 100.0100, L300.3900, [id number] #### [facility] [address] [place], [address] CO2 [Moles/Vol] 25.9 mmol/L Normal 21.0-32.0 [facility] Comment on above: Order Comment: 412.2 Performed By: #### L 100.0100, L300.3900, [id number] #### [facility] [address] [place], [address] Creatinine [Mass/Vol] 5.14 mg/dL High 0.70-1.20 [facility] Comment on above: Order Comment: 412.2 Performed By: #### L 100.0100, L300.3900, [id number] #### [facility] [address] [place], [address] GAP 12 Normal 5-15 [facility] Comment on above: Order Comment: 412.2 Performed By: #### L 100.0100, L300.3900, [id number] #### [facility] [address] [place], [address] GFR/1.73 sq M.predicted among non-blacks MDRD (S/P/Bld) [Vol rate/Area] 12 mL/min/{1.73_m2} Low >60 [facility] Comment on above: Order Comment: 412.2 Result Comment: mL/m in/1.73m2 CKD-EPI Creatinine Equation (2020) Performed By: #### L 100.0100, L300.3900, [id number] #### [facility] [address] [place], [address] Globulin (S) [Mass/Vol] 4.2 g/dL Normal 2.2-4.2 [facility] Comment on above: Order Comment: 412.2 Performed By: #### L 100.0100, L300.3900, [id number] #### [facility] [facility] [address] [place], [address] Glucose [Mass/Vol] 84 mg/dL Normal 70-99 [facility] Comment on above: Order Comment: 412.2 Performed By: #### L 100.0100, L300.3900, L500.4050 #### [facility] [address] [place], [address] Potassium [Moles/Vol] 5.6 mmol/L High 3.3-5.1 [facility] Comment on above: Order Comment: 412.2 Performed By: #### L 100.0100, L300.3900, L500.4050 #### [facility] [address] [place], [address] Sodium [Moles/Vol] 136 mmol/L Normal 133-145 [facility] Comment on above: Order Comment: 412.2 Performed By: #### L 100.0100, L300.3900, L500.4050 #### [facility] [address] [place], [address] T PROT 7.5 g/dL Normal 5.9-8.4 [facility] Comment on above: Order Comment: 412.2 Performed By: #### L 100.0100, L300.3900, L500.4050 #### [facility] [address] [place], [address] Urea nitrogen [Mass/Vol] 42 mg/dL High 4-19 [facility] Comment on above: Order Comment: 412.2 Performed By: #### L 100.0100, L300.3900, L500.4050 #### [facility] [address] [place], [address] Prothrombin Time w/INRon INR Coag (PPP) [Relative time] 2.1 {INR} Normal [facility] Comment on above: Order Comment: 412.2 Performed By: #### L 100.0100, L300.3900, L500.4050 #### [facility] [address] [place], [address] PT Coag (PPP) [Time] 23.9 s High 11.7-14.9 [facility] Comment on above: Order Comment: 412.2 Performed By: #### L 100.0100, L300.3900, L500.4050 #### [facility] [address] [place], [place], [address] Prothrombin Time w/INRon INR Coag (PPP) [Relative time] 3.4 {INR} Normal [facility] Comment on above: Performed By: #### L 300.3900 #### [facility] [address] [place], [address] PT Coag (PPP) [Time] 35.4 s High 11.7-14.9 [facility] Comment on above: Performed By: #### L 300.3900 #### [facility] [address] [place], [place], [address] 36on 03-26-2025 36 3rd attempt unable to speak to Sabino she's not in the office at them moment. Left message to call the office back to schedule [facility] 36 Sabino has been notified the visit can not be virtual Normal [facility] [place] [facility] 36 Name of Caller: Bobbi Rodriguezworth Contact Reason for Appointment: Change 04/05/25 hospital follow up to a vv. Please call and advise. Office Name: [facility] CBC W/Diff, Automatedon 02-27 Anisocytosis Ql (Bld) 1+ Normal [facility] Comment on above: Order Comment: 412.2 Performed By: #### L 300.3900 #### [facility] [address] [place], [place], [address] Comprehensive Metabolic Prof ilon 03-26-2025 Albumin [Mass/Vol] 3.2 g/dL Low 3.5-5.0 [facility] Comment on above: Order Comment: 412.2 Performed By: #### L 300.3900 #### [facility] [address] [place], [place], [address] Albumin/Globulin [Mass ratio] 0.8 {ratio} Low 0.9-2.4 [facility] Comment on above: Order Comment: 412.2 Performed By: #### L 300.3900 #### [facility] [address] [place], [address] ALK PHOS 238 U/L High 40-129 [facility] Comment on above: Order Comment: 412.2 Performed By: #### L 300.3900 #### [facility] [address] [place], [address] ALT [Catalytic activity/Vol] 21 U/L Normal <=46 [facility] Comment on above: Order Comment: 412.2 Performed By: #### L 300.3900 #### [facility] [address] [place], [address] AST [Catalytic activity/Vol] 53 U/L High <=37 [facility] Comment on above: Order Comment: 412.2 Performed By: #### L 300.3900 #### [facility] [address] [place], [address] Bilirubin [Mass/Vol] 0.58 mg/dL Normal 0.00-1.30 [facility] Comment on above: Order Comment: 412.2 Performed By: #### L 300.3900 #### [facility] [address] [place], [address] BUN/CRE 6.9 RATIO Low 10-20 [facility] Comment on above: Order Comment: 412.2 Performed By: #### L 300.3900 #### [facility] [address] [place], [address] Calcium [Mass/Vol] 9.6 mg/dL Normal 7.6-11.0 [facility] Comment on above: Order Comment: 412.2 Performed By: #### L 300.3900 #### [facility] [address] [place], [address] Chloride [Moles/Vol] 102 mmol/L Normal 98-108 [facility] Comment on above: Order Comment: 412.2 Performed By: #### L 300.3900 #### [facility] [address] [place], [address] CO2 [Moles/Vol] 22.8 mmol/L Normal 21.0-32.0 [facility] Comment on above: Order Comment: 412.2 Performed By: #### L 300.3900 #### [facility] [address] [place], [address] Creatinine [Mass/Vol] 5.21 mg/dL High 0.70-1.20 [facility] Comment on above: Order Comment: 412.2 Performed By: #### L 300.3900 #### [facility] [address] [place], [address] GAP 14 Normal 5-15 [facility] Comment on above: Order Comment: 412.2 Performed By: #### L 300.3900 #### [facility] [address] [place], [address] GFR/1.73 sq M.predicted among non-blacks MDRD (S/P/Bld) [Vol rate/Area] 12 mL/min/{1.73_m2} Low >60 [facility] Comment on above: Order Comment: 412.2 Result Comment: mL/m in/1.73m2 CKD-EPI Creatinine Equation (2020) Performed By: #### L 300.3900 #### [facility] [address] [place], [address] Globulin (S) [Mass/Vol] 4.1 g/dL Normal 2.2-4.2 [facility] Comment on above: Order Comment: 412.2 Performed By: #### L 300.3900 #### [facility] [address] [place], [address] Glucose [Mass/Vol] 87 mg/dL Normal 70-99 [facility] Comment on above: Order Comment: 412.2 Performed By: #### L 300.3900 #### [facility] [address] [place], [address] Potassium [Moles/Vol] 4.9 mmol/L Normal 3.3-5.1 [facility] Comment on above: Order Comment: 412.2 Performed By: #### L 300.3900 #### [facility] [address] [place], [address] Sodium [Moles/Vol] 139 mmol/L Normal 133-145 [facility] Comment on above: Order Comment: 412.2 Performed By: #### L 300.3900 #### [facility] [address] [place], [address] T PROT 7.2 g/dL Normal 5.9-8.4 [facility] Comment on above: Order Comment: 412.2 Performed By: #### L 300.3900 #### [facility] [address] [place], [address] Urea nitrogen [Mass/Vol] 36 mg/dL High 4-19 [facility] Comment on above: Order Comment: 412.2 Performed By: #### L 300.3900 #### [facility] [address] [place], [address] Prothrombin Time w/INRon INR Coag (PPP) [Relative time] 3.3 {INR} Normal [facility] Comment on above: Order Comment: 412.2 Performed By: #### L 300.3900 #### [facility] [address] [place], [address] PT Coag (PPP) [Time] 34.4 s High 11.7-14.9 [facility] Comment on above: Order Comment: 412.2 Performed By: #### L 300.3900 #### [facility] [address] [place], [address] 36on 03-22-2025 36 Patient discharged to [facility] on 03/21 - please follow [facility] [employer] normalized rat io (INR) calculationOrdered By: Kayley Melendrez on 03-22-2025 INR Coag (Bld) [Relative time] 2.9 {INR} [facility] Prothrombin Time w/INRon INR Coag (PPP) [Relative time] 2.9 {INR} [facility] Comment on above: Performed By: #### L 100.0100, L300.3900, L500.4050 #### [facility] [address] [place], [address] PT Coag (PPP) [Time] 30.7 s High 11.7-14.9 [facility] Comment on above: Performed By: #### L 100.0100, L300.3900, L500.4050 #### [facility] [address] [place], [address] Prothrombin timeOrdered By: Kayley Melendrez on 03-22-2025 PT Coag (PPP) [Time] 30.7 s High 11.7-14.9 [facility] 30on 03-21-2025 30 Normal [facility] [id number] 03-21-2025 [id number] [facility] [id number] MAR, Labs & Discharge med list transmitted to [facility] via [employer] per TCC request. Electronically signed by NELSON Rodrigues [facility] [id number] [facility] [id number] [facility] APTTon 03-21-2025 aPTT Coag (Bld) [Time] 50.7 s High 20.0-30.5 [facility] Comment on above: Result Comment: ORDE R COMMENTS:NOTE: The therapeutic time for Heparin anticoagulation, based on Xa activity inhibition, is an APTT of 46-80 seconds. Performed By: #### L AB320, [id number] ####[employer] Programmer: DOMENICA JARA ([phone])[facility])[address] [place] [address] CBC (HEMOGRAM)on 03-21-2025 Erythrocyte distribution width (RBC) [Ratio] 19.9 % High 11.5-15.0 [facility] Comment on above: Performed By: #### L AB294 ####[employer] Programmer: DOMENICA JARA ([phone])[facility])[address] [place] [address] Hematocrit (Bld) [Volume fraction] 29.2 % Low 40.0-52.0 [facility] Comment on above: Performed By: #### L AB294 ####[employer] Programmer: DOMENICA JARA ([phone])[address] Hemoglobin (Bld) [Mass/Vol] 8.8 g/dL Low 13.0-18.0 [facility] Comment on above: Performed By: #### L AB294 ####[employer] Programmer: DOMENICA JARA ([id number])[address] MCH (RBC) [Entitic mass] 30.2 pg Normal 26.0-34.0 [facility] Comment on above: Performed By: #### L AB294 ####[employer] Programmer: DOMENICA JARA ([phone])[address] MCHC 30.1 % Low 30.5-36.0 [facility] Comment on above: Performed By: #### L AB294 ####[employer] Programmer: DOMENICA JARA ([phone])[address] MCV (RBC) [Entitic vol] 100.3 fL High 77.0-99.0 [facility] Comment on above: Performed By: #### L AB294 ####[employer] Programmer: DOMENICA JARA ([phone])[facility] ([facility])[address] [place] [address] Platelet mean volume (Bld) [Entitic vol] 8.9 fL Low 9.0-12.7 [facility] Comment on above: Performed By: #### L AB294 ####[employer] Programmer: DOMENICA JARA ([phone])[facility] ([facility])[address] [place] [address] Platelets (Bld) [#/Vol] 271 10*3/uL Normal 140-440 [facility] Comment on above: Performed By: #### L AB294 ####[employer] Programmer: DOMENICA JARA ([phone])[facility] ([facility])[address] [place] [address] RBC (Bld) [#/Vol] 2.91 10*6/uL Low 4.40-5.90 [facility] Comment on above: Performed By: #### L AB294 ####[employer] Programmer: DOMENICA JARA ([phone])[facility] ([facility])[address] [place] [address] WBC (Bld) [#/Vol] 8.0 10*3/uL Normal 3.6-10.7 [facility] Comment on above: Performed By: #### L AB294 ####[employer] Programmer: DOMENICA JARA ([phone])[facility])[address] [place] [address] CBC panel Auto (Bld)on 03-21 Erythrocyte distribution width (RBC) [Ratio] 19.9 % High 11.5 - 15.0 % [facility] Hematocrit (Bld) [Volume fraction] 29.2 % Low 40.0 - 52.0 % [facility] Hemoglobin (Bld) [Mass/Vol] 8.8 g/dL Low 13.0 - 18.0 g/dL [facility] Interpretation and review of laboratory results Abnormal [facility] MCH (RBC) [Entitic mass] 30.2 pg 26. 0 - 34.0 pg [facility] MCHC (RBC) [Mass/Vol] 30.1 % Low 30.5 - 36.0 % [facility] MCV (RBC) [Entitic vol] 100.3 fL High 77.0 - 99.0 fL [facility] Platelet mean volume (Bld) [Entitic vol] 8.9 fL Low 9.0 - 12.7 fL [facility] Platelets (Bld) [#/Vol] 271 10*3/uL 140 - 440 10*3/uL [facility] RBC (Bld) [#/Vol] 2.91 10*6/uL Low 4.40 - 5.9 0 10*6/uL [facility] WBC (Bld) [#/Vol] 8 10*3/uL 3.6 - 10.7 10*3/uL [facility] COMPREHENSIVE METABOLIC PANE Victor M 03-21-2025 Albumin [Mass/Vol] 2.0 g/dL Low 3.5-5.0 [facility] Comment on above: Performed By: #### L AB17, [id number] ####[employer] Programmer: DOMENICA JARA ([phone])[facility])[address] [place] [address] ALP [Catalytic activity/Vol] 217 U/L High 40-150 [facility] Comment on above: Performed By: #### L AB17, [id number] ####[employer] Programmer: DOMENICA JARA ([id number])[address] ALT [Catalytic activity/Vol] 13 U/L Normal <40 [facility] Comment on above: Performed By: #### L AB17, [id number] ####[employer] Programmer: DOMENICA JARA ([phone])[address] Anion gap [Moles/Vol] 8 mmol/L Normal 3-13 [facility] Comment on above: Performed By: #### L AB17, [id number] ####[employer] Programmer: DOMENICA JARA ([phone])[facility])[address] [place] [address] AST [Catalytic activity/Vol] 59 U/L High <34 [facility] Comment on above: Performed By: #### L AB17, [id number] ####[employer] Programmer: DOMENICA JARA ([phone])[facility] ([facility])[address] [place] [address] Bilirubin [Mass/Vol] 0.9 mg/dL Normal <1.2 [facility] Comment on above: Performed By: #### L AB17, [id number] ####[employer] Programmer: DOMENICA JARA ([phone])[facility] ([facility])[address] [place] [address] Calcium [Mass/Vol] 9.0 mg/dL Normal 8.4-10.2 [facility] Comment on above: Performed By: #### L AB17, [id number] ####[employer] Programmer: DOMENICA JARA ([phone])[facility] ([facility])[address] [place] [address] Chloride [Moles/Vol] 99 mmol/L Normal 98-107 [facility] Comment on above: Performed By: #### L AB17, [id number] ####[employer] Programmer: DOMENICA JARA ([phone])[facility] ([facility])[address] [place] [address] [place] CO2 [Moles/Vol] 27 mmol/L Normal 22-29 [facility] Comment on above: Performed By: #### L AB17, [id number] ####[employer] Programmer: DOMENICA JARA ([phone])[facility] ([facility])[address] [place] [address] Creatinine [Mass/Vol] 3.36 mg/dL High 0.72-1.25 [facility] Comment on above: Performed By: #### L AB17, [id number] ####[employer] Programmer: DOMENICA JARA ([phone])[facility])[address] [place] [address] [place] GLOMERULAR FILTRATION RATE ML/MIN/1.73 SQ M.PREDICTED 20.2 mL/min/1.73m*2 Low >60.0 [facility] Comment on above: Result Comment: Calc ulation based on the Chronic Kidney Disease Epidemiology Collaboration (CKD-EPI) equation refit without adjustment for race Performed By: #### L AB17, [id number] ####[employer] Programmer: DOMENICA JARA ([phone])[facility])[address] [place] [address] Glucose [Mass/Vol] 91 mg/dL Normal 74-100 [facility] Comment on above: Performed By: #### L AB17, [id number] ####[employer] Programmer: DOMENICA JARA ([phone])[facility])[address] [place] [address] Potassium [Moles/Vol] 5.0 mmol/L Normal 3.5-5.1 [facility] Comment on above: Result Comment: [facility] potassium values may be up to 0.5 mmol/L lower than serum values. Performed By: #### L AB17, [id number] ####[employer] Programmer: DOMENICA JARA ([phone])[facility])[address] [place] [address] Protein [Mass/Vol] 7.2 g/dL Normal 6.4-8.3 [facility] Comment on above: Performed By: #### L AB17, [id number] ####[employer] Programmer: DOMENICA JARA ([phone])[facility])[address] [place] [address] Sodium [Moles/Vol] 134 mmol/L Low 136-145 [facility] Comment on above: Performed By: #### L AB17, [id number] ####[employer] Programmer: DOMENICA JARA ([id number])[facility])[address] [place] [address] Urea nitrogen [Mass/Vol] 24 mg/dL High 9-23 [facility] Comment on above: Performed By: #### L AB17, [id number] ####[employer] Programmer: DOMENICA JARA ([phone])[facility])[address] [place] [address] Comprehensive metabolic 1998 panelon 03-21-2025 Albumin [Mass/Vol] 2 g/dL Low 3.5 - 5.0 g/dL [facility] ALP [Catalytic activity/Vol] 217 U/L High 40 - 150 U/L [facility] ALT [Catalytic activity/Vol] 13 U/L NINF - 40 U/L [facility] Anion gap [Moles/Vol] 8 mmol/L 3 - 13 mmol/L [facility] AST [Catalytic activity/Vol] 59 U/L High NINF - 34 U/L [facility] Bilirubin [Mass/Vol] 0.9 mg/dL NINF - 1.2 mg/dL [facility] Calcium [Mass/Vol] 9 mg/dL 8.4 - 10. 2 mg/dL [facility] Chloride [Moles/Vol] 99 mmol/L 98 - 10 7 mmol/L [facility] CO2 [Moles/Vol] 27 mmol/L 22 - 29 mmol/L [facility] Creatinine [Mass/Vol] 3.36 mg/dL High 0.72 - 1.25 mg/dL [facility] GFR/1.73 sq M.predicted (S/P/Bld) [Vol rate/Area] 20.2 mL/min Low - PINF [facility] Comment on above: Calculation based on the Chronic Kidney Disease Epidemiology Collaboration (CKD-EPI) equation refit without adjustment for race Glucose [Mass/Vol] 91 mg/dL 74 - 100 mg/dL [facility] Interpretation and review of laboratory results Abnormal [facility] Potassium [Moles/Vol] 5 mmol/L 3.5 - 5.1 mmol/L [facility] Comment on above: Plasma potassium macey ues may be up to 0.5 mmol/L lower than serum values. Protein [Mass/Vol] 7.2 g/dL 6.4 - 8.3 g/dL [facility] Sodium [Moles/Vol] 134 mmol/L Low 136 - 145 mmol/L [facility] Urea nitrogen [Mass/Vol] 24 mg/dL High 9 - 23 mg/d L [facility] Laboratory - Chemistry and C hemistry - challengeon 03-21-2025 Glucose [Mass/Vol] 88 mg/dL 70 - 100 mg/dL [facility] Magnesium [Mass/Vol] 1.8 mg/dL 1.6 - 2 .6 mg/dL [facility] Laboratory - Coagulationon 0 03-21-2025 PT Coag (Bld) [Time] 29 s High 9.0 - 12.0 s [facility] MAGNESIUMon 03-21-2025 Magnesium [Mass/Vol] 1.8 mg/dL Normal 1.6-2.6 [facility] Comment on above: Result Comment: ARPAN R COMMENTS:Higher values can be expected in females during menses. Performed By: #### L AB17, [id number] ####[employer] Programmer: DOMENICA JARA ([phone])[facility] ([facility])[address] [place] [address] Magnesium [Mass/Vol]on 03-21 Interpretation and review of laboratory results Normal [facility] Higher values can be expected in females during menses. [facility] No Panel Informationon 03-21 Interpretation and review of laboratory results Normal [facility] Performed by: [place] [address] CLIA ID: [id number] [facility] Interpretation and review of laboratory results Abnormal [facility] Nursing Noteon 03-21-2025 Nursing Note Educated pt on importance of prescribed medications. Pt still refused. Normal [facility] PROTHROMBIN TIMEon INR Coag (PPP) [Relative time] 2.9 {INR} High 0.9-1.1 [facility] Comment on above: Result Comment: Vaughn [...] Myocardial Infarction Performed By: #### L AB320, [id number] ####[employer] Programmer: DOMENICA JARA ([phone])[facility] ([facility])[address] [place] [address] PT Coag (PPP) [Time] 29.0 s High 9.0-12.0 [facility] Comment on above: Performed By: #### L AB320, [id number] ####[employer] Programmer: DOMENICA [phone])[facility] ([facility])[address] [place] [address] PT Coag (Bld) [Time]on 03-21 INR Coag (PPP) [Relative time] 2.9 {INR} High 0.9 - 1.1 [facility] Comment on above: Recommended Anticoag ulant [...] Infarction Progress Noteon 03-21-2025 Progress Note Normal [facility] Progress Note Patient quit smoking in September. Accepting of handout with contact information for additional support to remain quit if neccesary. Normal [facility] Progress Note Normal [facility] Progress Note Normal [facility] Progress Note Normal [facility] aPTT Coag (Bld) [Time]on aPTT Coag (PPP) [Time] 50.7 s High 20.0 - 30.5 s [facility] NOTE: The therapeutic time for Heparin anticoagulation, based on Xa activity inhibition, is an APTT of 46-80 seconds. [facility] 30on 03-20-2025 30 Normal [facility] [id number] 03-20-2025 [id number] [facility] 36on 03-20-2025 36 Patient was re-admitted on 03/13. Inpatient consult team is following his care. Normal [facility] APTTon 03-20-2025 aPTT Coag (Bld) [Time] 68.9 s High 20.0-30.5 [facility] Comment on above: Result Comment: ARPAN Kaplan COMMENTS:NOTE: The therapeutic time for Heparin anticoagulation, based on Xa activity inhibition, is an APTT of 46-80 seconds. Performed By: #### L AB325 ####[employer] Programmer: DOMENICA JARA ([phone])[facility])[address] [place] [address] aPTT Coag (Bld) [Time] 61.5 s High 20.0-30.5 [facility] Comment on above: Result Comment: ARPAN Kaplan COMMENTS:NOTE: The therapeutic time for Heparin anticoagulation, based on Xa activity inhibition, is an APTT of 46-80 seconds. Performed By: #### L AB325 ####[employer] Programmer: DOMENICA JARA ([phone])[facility])[address] [place] [address] aPTT Coag (Bld) [Time] 44.1 s High 20.0-30.5 [facility] Comment on above: Result Comment: ARPAN Kaplan COMMENTS:NOTE: The therapeutic time for Heparin anticoagulation, based on Xa activity inhibition, is an APTT of 46-80 seconds. Performed By: #### L AB320, [id number] ####[employer] Programmer: DOMENICA JARA ([phone])[facility])[address] [place] [address] CBC (HEMOGRAM)on 03-20-2025 Erythrocyte distribution width (RBC) [Ratio] 20.2 % High 11.5-15.0 [facility] Comment on above: Performed By: #### L AB294 ####[employer] Programmer: DOMENICA [phone])[address] Hematocrit (Bld) [Volume fraction] 30.3 % Low 40.0-52.0 [facility] Comment on above: Performed By: #### L AB294 ####[employer] Programmer: DOMENICA [id number])[facility] [facility])[address] [place] [address] Hemoglobin (Bld) [Mass/Vol] 9.2 g/dL Low 13.0-18.0 [facility] Comment on above: Performed By: #### L [id number] ####Asp Net Programmer: DOMENICA [phone])[facility])[address] [place] [address] MCH (RBC) [Entitic mass] 30.7 pg Normal 26.0-34.0 [facility] Comment on above: Performed By: #### L AB294 ####Asp Net Programmer: DOMENICA JARA ([phone])[facility] ([facility])[address] [place] [address] MCHC 30.4 % Low 30.5-36.0 [facility] Comment on above: Performed By: #### L AB294 ####Asp Net Programmer: DOMENICA JARA ([phone])[facility] ([facility])[address] [place] [address] MCV (RBC) [Entitic vol] 101.0 fL High 77.0-99.0 [facility] Comment on above: Performed By: #### L AB294 ####Asp Net Programmer: DOMENICA JARA ([phone])[facility] ([facility])[address] [place] [address] Platelet mean volume (Bld) [Entitic vol] 9.2 fL Normal 9.0-12.7 [facility] Comment on above: Performed By: #### L [id number] ####Asp Net Programmer: DOMENICA JARA ([phone])[facility] ([facility])[address] [place] [address] Platelets (Bld) [#/Vol] 308 10*3/uL Normal 140-440 [facility] Comment on above: Performed By: #### L AB294 ####Asp Net Programmer: DOMENICA JRAA ([phone])[facility] ([facility])[address] [place] [address] RBC (Bld) [#/Vol] 3.00 10*6/uL Low 4.40-5.90 [facility] Comment on above: Performed By: #### L AB294 ####Asp Net Programmer: DOMENICA JARA ([phone])[facility] ([facility])[address] [place] [address] WBC (Bld) [#/Vol] 8.1 10*3/uL Normal 3.6-10.7 [facility] Comment on above: Performed By: #### L AB294 ####Asp Net Programmer: DOMENICA JARA ([phone])[facility] ([facility])[address] [place] [address] CBC panel Auto (Bld)Ordered By: Anu Graham on 03-20-2025 Erythrocyte distribution width (RBC) [Ratio] 20.2 % High 11.5 - 15.0 % [facility] Hematocrit (Bld) [Volume fraction] 30.3 % Low 40.0 - 52.0 % [facility] Hemoglobin (Bld) [Mass/Vol] 9.2 g/dL Low 13.0 - 18.0 g/dL [facility] Interpretation and review of laboratory results Abnormal [facility] MCH (RBC) [Entitic mass] 30.7 pg 26. 0 - 34.0 pg [facility] MCHC (RBC) [Mass/Vol] 30.4 % Low 30.5 - 36.0 % [facility] MCV (RBC) [Entitic vol] 101 fL High 77.0 - 99.0 fL [facility] Platelet mean volume (Bld) [Entitic vol] 9.2 fL 9.0 - 12.7 fL [facility] Platelets (Bld) [#/Vol] 308 10*3/uL 140 - 440 10*3/uL [facility] RBC (Bld) [#/Vol] 3 10*6/uL Low 4.40 - 5.9 0 10*6/uL [facility] WBC (Bld) [#/Vol] 8.1 10*3/uL 3.6 - 10.7 10*3/uL [facility] COMPREHENSIVE METABOLIC PANE Victor M 03-20-2025 Albumin [Mass/Vol] 1.9 g/dL Low 3.5-5.0 [facility] Comment on above: Performed By: #### L AB103, [id number] ####Asp Net Programmer: DOMENICA JARA ([phone])[facility] ([facility])[address] [place] [address] ALP [Catalytic activity/Vol] 194 U/L High 40-150 [facility] Comment on above: Performed By: #### L AB103, LAB17 ####Asp Net Programmer: DOMENICA JARA ([phone])[facility] ([facility])[address] [place] [address] [place] ALT [Catalytic activity/Vol] 13 U/L Normal <40 [facility] Comment on above: Performed By: #### L AB103, LAB17 ####Asp Net Programmer: DOMENICA JARA ([phone])[facility] ([facility])[address] Anion gap [Moles/Vol] 10 mmol/L Normal 3-13 [facility] Comment on above: Performed By: #### L AB103, LAB17 ####Asp Net Programmer: DOMENICA JARA ([phone])[facility] ([facility])[address] [place] [address] AST [Catalytic activity/Vol] 46 U/L High <34 [facility] Comment on above: Performed By: #### L AB103, LAB17 ####Asp Net Programmer: DOMENICA JARA ([phone])[facility] ([facility])[address] [place] [address] Bilirubin [Mass/Vol] 0.8 mg/dL Normal <1.[address] [facility] Comment on above: Performed By: #### L AB103, LAB17 ####Asp Net Programmer: DOMENICA JARA ([phone])[facility] ([facility])[address] [place] [address] [place] Calcium [Mass/Vol] 9.1 mg/dL Normal 8.4-10.2 [facility] Comment on above: Performed By: #### L AB103, LAB17 ####Asp Net Programmer: DOMENICA JARA ([id number])[facility] ([facility])[address] [place] [address] [place] Chloride [Moles/Vol] 102 mmol/L Normal 98-[address] [facility] Comment on above: Performed By: #### L AB103, LAB17 ####Asp Net Programmer: DOMENICA JARA ([phone])[facility] ([facility])[address] [place] [address] [place] CO2 [Moles/Vol] 24 mmol/L Normal 22-29 [facility] Comment on above: Performed By: #### Tameka KWONG, LAB17 ####Asp Net Programmer: DOMENICA JARA ([phone])[facility])[address] [place] [address] Creatinine [Mass/Vol] 4.28 mg/dL High 0.72-1.25 [facility] Comment on above: Performed By: #### Tameka KWONG, LAB17 ####Asp Net Programmer: DOMENICA JARA ([phone])[facility])[address] [place] [address] GLOMERULAR FILTRATION RATE ML/MIN/1.73 SQ M.PREDICTED 15.1 mL/min/1.73m*2 Low >60.0 [facility] Comment on above: Result Comment: Calc ulation based on the Chronic Kidney Disease Epidemiology Collaboration (CKD-EPI) equation refit without adjustment for race Performed By: #### Tameka KWONG, LAB17 ####Asp Net Programmer: DOMENICA JARA ([phone])[facility])[address] [place] [address] Glucose [Mass/Vol] 91 mg/dL Normal 74-100 [facility] Comment on above: Performed By: #### Tameka KWONG, LAB17 ####Asp Net Programmer: DOMENICA JARA ([phone])[address] Potassium [Moles/Vol] 5.3 mmol/L High 3.5-5.1 [facility] Comment on above: Result Comment: [facility] potassium values may be up to 0.5 mmol/L lower than serum values. Performed By: #### L AB103, LAB17 ####Asp Net Programmer: DOMENICA JARA ([id number])[address] Protein [Mass/Vol] 7.3 g/dL Normal 6.4-8.3 [facility] Comment on above: Performed By: #### L VARGHESE, LAB17 ####Asp Net Programmer: DOMENICA JARA ([phone])[facility] ([facility])[address] [place] [address] Sodium [Moles/Vol] 136 mmol/L Normal 136-145 [facility] Comment on above: Performed By: #### L AB103, LAB17 ####Asp Net Programmer: DOMENICA JARA ([id number])[facility] ([facility])[address] [place] [address] Urea nitrogen [Mass/Vol] 32 mg/dL High 9- [facility] Comment on above: Performed By: #### L AB103, LAB17 ####Asp Net Programmer: DOMENICA JARA ([phone])[facility] ([facility])[address] [place] [address] Comprehensive metabolic 1998 panelon 03-20-2025 Albumin [Mass/Vol] 1.9 g/dL Low 3.5 - 5.0 g/dL [facility] ALP [Catalytic activity/Vol] 194 U/L High 40 - 150 U/L [facility] ALT [Catalytic activity/Vol] 13 U/L NINF - 40 U/L [facility] Anion gap [Moles/Vol] 10 mmol/L 3 - 13 mmol/L [facility] AST [Catalytic activity/Vol] 46 U/L High [facility] - [facility] U/L [facility] Bilirubin [Mass/Vol] 0.8 mg/dL [facility] - 1.2 mg/dL [facility] Calcium [Mass/Vol] 9.1 mg/dL 8.4 - 10. 2 mg/dL [facility] Chloride [Moles/Vol] 102 mmol/L 98 - 10 7 mmol/L [facility] CO2 [Moles/Vol] 24 mmol/L 22 - 29 mmol/L [facility] Creatinine [Mass/Vol] 4.28 mg/dL High 0.72 - 1.25 mg/dL [facility] GFR/1.73 sq M.predicted (S/P/Bld) [Vol rate/Area] 15.1 mL/min Low - PINF [facility] Comment on above: Calculation based on the Chronic Kidney Disease Epidemiology Collaboration (CKD-EPI) equation refit without adjustment for race Glucose [Mass/Vol] 91 mg/dL 74 - 100 mg/dL [facility] Interpretation and review of laboratory results Abnormal [facility] Potassium [Moles/Vol] 5.3 mmol/L High 3.5 - 5.1 mmol/L [facility] Comment on above: Plasma potassium macey ues may be up to 0.5 mmol/L lower than serum values. Protein [Mass/Vol] 7.3 g/dL 6.4 - 8.3 g/dL [facility] Sodium [Moles/Vol] 136 mmol/L 136 - 145 mmol/L [facility] Urea nitrogen [Mass/Vol] 32 mg/dL High 9 - 23 mg/d L [facility] HBV surface Ab IA Qnon 03-20 Interpretation: <8.0 Non-Reactive 8.0-11.9 Equivocal >= 12.0 Ab Detected Note: If an equivocal result is interpreted, an antibody status is unable to be determined. Collect new specimen if clinically indicated. [facility] HBV surface Ag IA Qlon 03-20 Interpretation and review of laboratory results Normal [facility] HEPATITIS B SURFACE ANTIBODY on 03-20-2025 HEPATITIS B VIRUS SURFACE AB <8.0 Normal [facility] Comment on above: Result Comment: ARPAN Kaplan COMMENTS:Interpretation:<8.0 Non-Reactive8.0-11.9 Equivocal>= 12.0 Ab DetectedNote: If an equivocal result is interpreted, an antibody status is unable to be determined. Collect new specimen if clinically indicated. Performed By: #### L AB472, [id number] ####Asp Net Programmer: DOMENICA AJRA ([phone])[address] HEPATITIS B SURFACE ANTIGENo n 03-20-2025 HEPATITIS B VIRUS SURFACE AG Not detected Normal Not Detected [facility] Comment on above: Performed By: #### L AB472, [id number] ####Asp Net Programmer: DOMENICA JARA ([phone])[address] Laboratory - Chemistry and C hemistry - challengeon 03-20-2025 Magnesium [Mass/Vol] 2 mg/dL 1.6 - 2 .6 mg/dL [facility] Laboratory - Coagulationon 0 03-20-2025 PT Coag (Bld) [Time] 19.1 s High 9.0 - 12.0 s [facility] Laboratory - Microbiology an d Antimicrobial susceptibilityon 03-20-2025 HBV surface Ag IA Ql Not detected Not Detected [facility] HBV surface Ab IA Qn mIU/mL [facility] MAGNESIUMon 03-20-2025 Magnesium [Mass/Vol] 2.0 mg/dL Normal 1.6-2.6 [facility] Comment on above: Result Comment: ORDE R COMMENTS:Higher values can be expected in females during menses. Performed By: #### L AB103, LAB17 ####Asp Net Programmer: DOMENICA JARA ([phone])[facility])[address] [place] [address] Magnesium [Mass/Vol]on 03-20 Interpretation and review of laboratory results Normal [facility] Higher values can be expected in females during menses. [facility] No Panel Informationon 03-20 [facility] Interpretation and review of laboratory results Abnormal [facility] Nursing Noteon 03-20-2025 Nursing Note Normal [facility] PROTHROMBIN TIMEon INR Coag (PPP) [Relative time] 1.9 {INR} High 0.9-1.1 [facility] Comment on above: Result Comment: Vaughn [...] Myocardial Infarction Performed By: #### L AB320, [id number] ####Asp Net Programmer: DOMENICA JARA ([phone])[facility] ([facility])[address] [place] [address] PT Coag (PPP) [Time] 19.1 s High 9.0-12.0 [facility] Comment on above: Performed By: #### L AB320, [id number] ####Asp Net Programmer: DOMENICA JARA ([id number])[facility] ([facility])[address] [place] [address] PT Coag (Bld) [Time]on 03-20 INR Coag (PPP) [Relative time] 1.9 {INR} High 0.9 - 1.1 [facility] Comment on above: Recommended Anticoag ulant [...] Infarction Progress Noteon 03-20-2025 Progress Note Normal [facility] Progress Note Normal [facility] Progress Note Normal [facility] aPTT Coag (Bld) [Time]on aPTT Coag (PPP) [Time] 68.9 s High 20.0 - 30.5 s [facility] Interpretation and review of laboratory results Abnormal [facility] NOTE: The therapeutic time for Heparin anticoagulation, based on Xa activity inhibition, is an APTT of 46-80 seconds. [facility] aPTT Coag (PPP) [Time] 61.5 s High 20.0 - 30.5 s [facility] Interpretation and review of laboratory results Abnormal [facility] NOTE: The therapeutic time for Heparin anticoagulation, based on Xa activity inhibition, is an APTT of 46-80 seconds. [facility] aPTT Coag (PPP) [Time] 44.1 s High 20.0 - 30.5 s [facility] NOTE: The therapeutic time for Heparin anticoagulation, based on Xa activity inhibition, is an APTT of 46-80 seconds. [facility] 30on 03-19-2025 30 Normal [facility] 30 Normal [facility] [id number] 03-19-2025 [id number] Normal [facility] APTTon 03-19-2025 aPTT Coag (Bld) [Time] 47.3 s High 20.0-30.5 [facility] Comment on above: Result Comment: ARPAN Kaplan COMMENTS:NOTE: The therapeutic time for Heparin anticoagulation, based on Xa activity inhibition, is an APTT of 46-80 seconds. Performed By: #### L AB325 ####Asp Net Programmer: DOMENICA JARA ([phone])[facility])[address] [place] [address] aPTT Coag (Bld) [Time] 46.4 s High 20.0-30.5 [facility] Comment on above: Result Comment: ARPAN Kaplan COMMENTS:NOTE: The therapeutic time for Heparin anticoagulation, based on Xa activity inhibition, is an APTT of 46-80 seconds. Performed By: #### L AB320, [id number] ####Asp Net Programmer: DOMENICA JARA ([phone])[facility])[address] [place] [address] CBC (HEMOGRAM)on 03-19-2025 Erythrocyte distribution width (RBC) [Ratio] 20.8 % High 11.5-15.0 [facility] Comment on above: Performed By: #### L AB294 ####Asp Net Programmer: DOMENICA JARA ([phone])[address] Hematocrit (Bld) [Volume fraction] 30.4 % Low 40.0-52.0 [facility] Comment on above: Performed By: #### L AB294 ####Asp Net Programmer: DOMENICA JARA ([phone])[address] Hemoglobin (Bld) [Mass/Vol] 8.9 g/dL Low 13.0-18.0 [facility] Comment on above: Performed By: #### L AB294 ####Asp Net Programmer: DOMENICA JARA ([phone])[address] MCH (RBC) [Entitic mass] 29.9 pg Normal 26.0-34.0 [facility] Comment on above: Performed By: #### L AB294 ####Asp Net Programmer: DOMENICA [id number])[facility] ([facility])[address] [place] [address] MCHC 29.3 % Low 30.5-36.0 [facility] Comment on above: Performed By: #### L AB294 ####Asp Net Programmer: DOMENICA JARA ([id number])[facility] ([facility])[address] [place] [address] MCV (RBC) [Entitic vol] 102.0 fL High 77.0-99.0 [facility] Comment on above: Performed By: #### L AB294 ####Asp Net Programmer: DOMENICA JARA ([id number])[facility] ([facility])[address] [place] [address] Platelet mean volume (Bld) [Entitic vol] 9.3 fL Normal 9.0-12.7 [facility] Comment on above: Performed By: #### L AB294 ####Asp Net Programmer: DOMENICA JARA ([id number])[facility] ([facility])[address] [place] [address] Platelets (Bld) [#/Vol] 320 10*3/uL Normal 140-440 [facility] Comment on above: Performed By: #### L AB294 ####Asp Net Programmer: DOMENICA JARA ([id number])[facility] ([facility])[address] [place] [address] RBC (Bld) [#/Vol] 2.98 10*6/uL Low 4.40-5.90 [facility] Comment on above: Performed By: #### L AB294 ####Asp Net Programmer: DOMENICA JARA ([phone])[facility] ([facility])[address] [place] [address] WBC (Bld) [#/Vol] 7.8 10*3/uL Normal 3.6-10.7 [facility] Comment on above: Performed By: #### L AB294 ####Asp Net Programmer: DOMENICA JARA ([phone])[facility] ([facility])[address] CBC panel Auto (Bld)Ordered By: Liseth Granado on 03-19-2025 Erythrocyte distribution width (RBC) [Ratio] 20.8 % High 11.5 - 15.0 % [facility] Hematocrit (Bld) [Volume fraction] 30.4 % Low 40.0 - 52.0 % [facility] Hemoglobin (Bld) [Mass/Vol] 8.9 g/dL Low 13.0 - 18.0 g/dL [facility] Interpretation and review of laboratory results Abnormal [facility] MCH (RBC) [Entitic mass] 29.9 pg 26. 0 - 34.0 pg [facility] MCHC (RBC) [Mass/Vol] 29.3 % Low 30.5 - 36.0 % [facility] MCV (RBC) [Entitic vol] 102 fL High 77.0 - 99.0 fL [facility] Platelet mean volume (Bld) [Entitic vol] 9.3 fL 9.0 - 12.7 fL [facility] Platelets (Bld) [#/Vol] 320 10*3/uL 140 - 440 10*3/uL [facility] RBC (Bld) [#/Vol] 2.98 10*6/uL Low 4.40 - 5.9 0 10*6/uL [facility] WBC (Bld) [#/Vol] 7.8 10*3/uL 3.6 - 10.7 10*3/uL [facility] COMPREHENSIVE METABOLIC PANE Victor M 03-19-2025 Albumin [Mass/Vol] 2.0 g/dL Low 3.5-5.0 [facility] Comment on above: Performed By: #### L AB17, [id number] ####Asp Net Programmer: DOMENICA JARA ([phone])[facility] ([facility])[address] [place] [address] ALP [Catalytic activity/Vol] 221 U/L High 40-150 [facility] Comment on above: Performed By: #### L AB17, [id number] ####Asp Net Programmer: DOMENICA JARA ([phone])[facility] ([facility])[address] [place] [address] ALT [Catalytic activity/Vol] 14 U/L Normal <40 [facility] Comment on above: Performed By: #### L AB17, [id number] ####Asp Net Programmer: DOMENICA JARA ([id number])[facility] ([facility])[address] [place] [address] Anion gap [Moles/Vol] 8 mmol/L Normal 3-13 [facility] Comment on above: Performed By: #### L AB17, [id number] ####Asp Net Programmer: DOMENICA JARA ([phone])[facility] ([facility])[address] [place] [address] AST [Catalytic activity/Vol] 52 U/L High <34 [facility] Comment on above: Performed By: #### L AB17, [id number] ####Asp Net Programmer: DOMENICA JARA ([phone])[facility] ([facility])[address] [place] [address] Bilirubin [Mass/Vol] 0.9 mg/dL Normal <1.[address] [facility] Comment on above: Performed By: #### L AB17, [id number] ####Asp Net Programmer: DOMENICA JARA ([phone])[facility] ([facility])[address] [place] [address] Calcium [Mass/Vol] 9.0 mg/dL Normal 8.4-10.2 [facility] Comment on above: Performed By: #### L AB17, [id number] ####Asp Net Programmer: DOMENICA JARA ([phone])[facility] ([facility])[address] [place] [address] [place] Chloride [Moles/Vol] 102 mmol/L Normal 98-[address] [facility] Comment on above: Performed By: #### L AB17, [id number] ####Asp Net Programmer: DOMENICA JARA ([phone])[facility] ([facility])[address] [place] [address] [place] CO2 [Moles/Vol] 27 mmol/L Normal 22-29 [facility] Comment on above: Performed By: #### L AB17, [id number] ####Asp Net Programmer: DOMENICA JARA ([phone])[facility])[address] [place] [address] Creatinine [Mass/Vol] 3.67 mg/dL High 0.72-1.25 [facility] Comment on above: Performed By: #### L AB17, [id number] ####Asp Net Programmer: DOMENICA JARA ([phone])[facility])[address] [place] [address] [place] GLOMERULAR FILTRATION RATE ML/MIN/1.73 SQ M.PREDICTED 18.2 mL/min/1.73m*2 Low >60.0 [facility] Comment on above: Result Comment: Calc ulation based on the Chronic Kidney Disease Epidemiology Collaboration (CKD-EPI) equation refit without adjustment for race Performed By: #### L AB17, [id number] ####Asp Net Programmer: DOMENICA JARA ([id number])[facility])[address] [place] [address] Glucose [Mass/Vol] 85 mg/dL Normal 74-100 [facility] Comment on above: Performed By: #### L AB17, [id number] ####Asp Net Programmer: DOMENICA JARA ([id number])[place] [address] [place] Potassium [Moles/Vol] 4.0 mmol/L Normal 3.5-5.1 [facility] Comment on above: Result Comment: [facility] potassium values may be up to 0.5 mmol/L lower than serum values. Performed By: #### L 17, [id number] ####Asp Net Programmer: DOMENICA JARA ([phone])[facility])[address] [place] [address] [place] Protein [Mass/Vol] 7.4 g/dL Normal 6.4-8.3 [facility] Comment on above: Performed By: #### L AB17, [id number] ####Asp Net Programmer: DOMENICA JARA ([id number])[facility])[address] [place] [address] [place] Sodium [Moles/Vol] 137 mmol/L Normal 136-145 [facility] Comment on above: Performed By: #### L AB17, [id number] ####Asp Net Programmer: DOMENICA JARA ([phone])[facility] ([facility])[address] [place] [address] Urea nitrogen [Mass/Vol] 24 mg/dL High 06-19 [facility] Comment on above: Performed By: #### L AB17, [id number] ####Asp Net Programmer: DOMENICA JARA ([phone])[facility] ([facility])[address] [place] [address] Comprehensive metabolic 1998 panelOrdered By: Rikki Caballero on 03-19-2025 Albumin [Mass/Vol] 2 g/dL Low 3.5 - 5.0 g/dL [facility] ALP [Catalytic activity/Vol] 221 U/L High 40 - 150 U/L [facility] ALT [Catalytic activity/Vol] 14 U/L NINF - 40 U/L [facility] Anion gap [Moles/Vol] 8 mmol/L 3 - 13 mmol/L [facility] AST [Catalytic activity/Vol] 52 U/L High NINF - 34 U/L [facility] Bilirubin [Mass/Vol] 0.9 mg/dL NINF - 1.2 mg/dL [facility] Calcium [Mass/Vol] 9 mg/dL 8.4 - 10. 2 mg/dL [facility] Chloride [Moles/Vol] 102 mmol/L 98 - 10 7 mmol/L [facility] CO2 [Moles/Vol] 27 mmol/L 22 - 29 mmol/L [facility] Creatinine [Mass/Vol] 3.67 mg/dL High 0.72 - 1.25 mg/dL [facility] GFR/1.73 sq M.predicted (S/P/Bld) [Vol rate/Area] 18.2 mL/min Low - PINF [facility] Comment on above: Calculation based on the Chronic Kidney Disease Epidemiology Collaboration (CKD-EPI) equation refit without adjustment for race Glucose [Mass/Vol] 85 mg/dL 74 - 100 mg/dL [facility] Interpretation and review of laboratory results Abnormal [facility] Potassium [Moles/Vol] 4 mmol/L 3.5 - 5.1 mmol/L [facility] Comment on above: Plasma potassium macey ues may be up to 0.5 mmol/L lower than serum values. Protein [Mass/Vol] 7.4 g/dL 6.4 - 8.3 g/dL [facility] Sodium [Moles/Vol] 137 mmol/L 136 - 145 mmol/L [facility] Urea nitrogen [Mass/Vol] 24 mg/dL High 9 - 23 mg/d L [facility] Laboratory - Chemistry and C hemistry - challengeon 03-19-2025 Magnesium [Mass/Vol] 1.9 mg/dL 1.6 - 2 .6 mg/dL [facility] Laboratory - Coagulationon 0 03-19-2025 PT Coag (Bld) [Time] 17 s High 9.0 - 12.0 s [facility] MAGNESIUMon 03-19-2025 Magnesium [Mass/Vol] 1.9 mg/dL Normal 1.6-2.6 [facility] Comment on above: Result Comment: ARPAN Kaplan COMMENTS:Higher values can be expected in females during menses. Performed By: #### L AB17, [id number] ####Asp Net Programmer: DOMENICA JARA ([phone])[facility] [place] [address] Magnesium [Mass/Vol]on 03-19 Interpretation and review of laboratory results Normal [facility] Higher values can be expected in females during menses. [facility] No Panel Informationon 03-19 Interpretation and review of laboratory results Abnormal [facility] Nursing Noteon 03-19-2025 Nursing Note Wound vac suction failing-pt requesting wound vac removed for now. Black foam dressing removed and wound packed with saline-soaked gauze covered with DSD Normal [facility] Nursing Note Pt adamantly refusing telemetry at this time, ripped off monitor and threw to the floor Normal [facility] PROTHROMBIN TIMEon INR Coag (PPP) [Relative time] 1.6 {INR} High 0.9-1.1 [facility] Comment on above: Performed By: #### L AB320, [id number] ####Asp Net Programmer: DOMENICA JARA ([phone])[facility] ([facility])[address] [place] [address] PT Coag (PPP) [Time] 17.0 s High 9.0-12.0 [facility] Comment on above: Performed By: #### L AB320, [id number] ####Asp [employer] Programmer: DOMENICA JARA ([phone])[facility] ([facility])[address] [place] [address] PT Coag (Bld) [Time]on 03-19 INR Coag (PPP) [Relative time] 1.6 {INR} High 0.9 - 1.1 [facility] Progress Noteon 03-19-2025 Progress Note Normal [facility] Progress Note Normal [facility] Progress Note Normal [facility] Progress Note Normal [facility] aPTT Coag (Bld) [Time]on aPTT Coag (PPP) [Time] 47.3 s High 20.0 - 30.5 s [facility] Interpretation and review of laboratory results Abnormal [facility] NOTE: The therapeutic time for Heparin anticoagulation, based on Xa activity inhibition, is an APTT of 46-80 seconds. [facility] aPTT Coag (PPP) [Time] 46.4 s High 20.0 - 30.5 s [facility] NOTE: The therapeutic time for Heparin anticoagulation, based on Xa activity inhibition, is an APTT of 46-80 seconds. [facility] APTTon 03-18-2025 aPTT Coag (Bld) [Time] 51.8 s High 20.0-30.5 [facility] Comment on above: Result Comment: ARPAN Kaplan COMMENTS:NOTE: The therapeutic time for Heparin anticoagulation, based on Xa activity inhibition, is an APTT of 46-80 seconds. Performed By: #### L AB325 ####Asp Net Programmer: DOMENICA JARA ([phone])[facility] ([facility])[address] [place] [address] aPTT Coag (Bld) [Time] 47.6 s High 20.0-30.5 [facility] Comment on above: Result Comment: ARPAN Kaplan COMMENTS:NOTE: The therapeutic time for Heparin anticoagulation, based on Xa activity inhibition, is an APTT of 46-80 seconds. Performed By: #### L AB325 ####Asp Net Programmer: DOMENICA JARA ([phone])[facility])[address] [place] [address] aPTT Coag (Bld) [Time] 48.8 s High 20.0-30.5 [facility] Comment on above: Result Comment: ARPAN Kaplan COMMENTS:NOTE: The therapeutic time for Heparin anticoagulation, based on Xa activity inhibition, is an APTT of 46-80 seconds. Performed By: #### L AB325, [id number] ####Asp Net Programmer: DOMENICA JARA ([phone])[facility])[address] [place] [address] CBC (HEMOGRAM)on 03-18-2025 Erythrocyte distribution width (RBC) [Ratio] 20.6 % High 11.5-15.0 [facility] Comment on above: Performed By: #### L AB294 ####Asp Net Programmer: DOMENICA JARA ([phone])[facility])[address] [place] [address] Hematocrit (Bld) [Volume fraction] 30.4 % Low 40.0-52.0 [facility] Comment on above: Performed By: #### L AB294 ####Asp Net Programmer: DOMENICA JARA ([phone])[facility])[address] [place] [address] Hemoglobin (Bld) [Mass/Vol] 9.1 g/dL Low 13.0-18.0 [facility] Comment on above: Performed By: #### L AB294 ####Asp Net Programmer: DOMENICA JARA ([phone])[facility])[address] [place] [address] MCH (RBC) [Entitic mass] 30.0 pg Normal 26.0-34.0 [facility] Comment on above: Performed By: #### L AB294 ####Asp Net Programmer: DOMENICA JARA ([phone])[facility])[address] [place] [address] MCHC 29.9 % Low 30.5-36.0 [facility] Comment on above: Performed By: #### L AB294 ####Asp Net Programmer: DOMENICA JARA ([phone])[facility])[address] [place] [address] MCV (RBC) [Entitic vol] 100.3 fL High 77.0-99.0 S [facility] Comment on above: Performed By: #### L AB294 ####Asp Net Programmer: DOMENICA JARA ([phone])[facility] ([facility])[address] [place] [address] Platelet mean volume (Bld) [Entitic vol] 9.4 fL Normal 9.0-12.7 [facility] Comment on above: Performed By: #### L AB294 ####Asp Net Programmer: DOMENICA JARA ([phone])[facility])[address] [place] [address] Platelets (Bld) [#/Vol] 333 10*3/uL Normal 140-440 [facility] Comment on above: Performed By: #### L AB294 ####Asp Net Programmer: DOMENICA JARA ([phone])[facility])[address] [place] [address] RBC (Bld) [#/Vol] 3.03 10*6/uL Low 4.40-5.90 [facility] Comment on above: Performed By: #### L AB294 ####Asp Net Programmer: DOMENICA JARA ([phone])[facility])[address] [place] [address] WBC (Bld) [#/Vol] 7.6 10*3/uL Normal 3.6-10.7 [facility] Comment on above: Performed By: #### L AB294 ####Asp Net Programmer: DOMENICA JARA ([phone])[facility])[address] [place] [address] CBC panel Auto (Bld)Ordered By: Haley Vitale on 03-18-2025 Erythrocyte distribution width (RBC) [Ratio] 20.6 % High 11.5 - 15.0 % [facility] Hematocrit (Bld) [Volume fraction] 30.4 % Low 40.0 - 52.0 % [facility] Hemoglobin (Bld) [Mass/Vol] 9.1 g/dL Low 13.0 - 18.0 g/dL [facility] Interpretation and review of laboratory results Abnormal [facility] MCH (RBC) [Entitic mass] 30 pg 26. 0 - 34.0 pg [facility] MCHC (RBC) [Mass/Vol] 29.9 % Low 30.5 - 36.0 % [facility] MCV (RBC) [Entitic vol] 100.3 fL High 77.0 - 99.0 fL [facility] Platelet mean volume (Bld) [Entitic vol] 9.4 fL 9.0 - 12.7 fL [facility] Platelets (Bld) [#/Vol] 333 10*3/uL 140 - 440 10*3/uL [facility] RBC (Bld) [#/Vol] 3.03 10*6/uL Low 4.40 - 5.9 0 10*6/uL [facility] WBC (Bld) [#/Vol] 7.6 10*3/uL 3.6 - 10.7 10*3/uL [facility] COMPREHENSIVE METABOLIC PANE Victor M 03-18-2025 Albumin [Mass/Vol] 2.0 g/dL Low 3.5-5.0 [facility] Comment on above: Performed By: #### L AB103, LAB17 ####Asp Net Programmer: DOMENICA JARA ([phone])[address] ALP [Catalytic activity/Vol] 241 U/L High 40-150 [facility] Comment on above: Performed By: #### L AB103, LAB17 ####Asp Net Programmer: DOMENICA [id number])[address] ALT [Catalytic activity/Vol] 11 U/L Normal <40 [facility] Comment on above: Performed By: #### L AB103, LAB17 ####Asp Net Programmer: DOMENICA [id number])[facility] ([facility])[address] [place] [address] [place] Anion gap [Moles/Vol] 10 mmol/L Normal 3-13 [facility] Comment on above: Performed By: #### L AB103, LAB17 ####Asp Net Programmer: DOMENICA JARA ([id number])[facility] ([facility])[address] [place] [address] [place] AST [Catalytic activity/Vol] 50 U/L High <34 [facility] Comment on above: Performed By: #### L 103, LAB17 ####Asp Net Programmer: DOMENICA JARA ([phone])[facility] ([facility])[address] Bilirubin [Mass/Vol] 0.8 mg/dL Normal <1.[address] [facility] Comment on above: Performed By: #### Tameka KWONG, LAB17 ####Asp Net Programmer: DOMENICA JARA ([phone])[facility] ([facility])[address] [place] [address] Calcium [Mass/Vol] 9.0 mg/dL Normal 8.4-10.2 [facility] Comment on above: Performed By: #### Tameka KWONG, LAB17 ####Asp Net Programmer: DOMENICA JARA ([phone])[facility] ([facility])[address] [place] [address] [place] Chloride [Moles/Vol] 100 mmol/L Normal 98-[address] [facility] Comment on above: Performed By: #### L VARGHESE, LAB17 ####Asp Net Programmer: DOMENICA JARA ([phone])[facility] ([facility])[address] [place] [address] [place] CO2 [Moles/Vol] 29 mmol/L Normal 22-29 [facility] Comment on above: Performed By: #### L AB103, LAB17 ####Asp Net Programmer: DOMENICA JARA ([phone])[facility] ([facility])[address] [place] [address] [place] Creatinine [Mass/Vol] 2.64 mg/dL High 0.72-1.25 [facility] Comment on above: Performed By: #### L AB103, LAB17 ####Asp Net Programmer: DOMENICA JARA ([phone])[address] GLOMERULAR FILTRATION RATE ML/MIN/1.73 SQ M.PREDICTED 27.0 mL/min/1.73m*2 Low >60.0 [facility] Comment on above: Result Comment: Calc ulation based on the Chronic Kidney Disease Epidemiology Collaboration (CKD-EPI) equation refit without adjustment for race Performed By: #### L AB103, LAB17 ####Asp Net Programmer: DOMENICA JARA ([id number])[address] Glucose [Mass/Vol] 73 mg/dL Low 74-100 [facility] Comment on above: Performed By: #### L AB103, LAB17 ####Asp Net Programmer: DOMENICA JARA ([phone])[address] Potassium [Moles/Vol] 3.4 mmol/L Low 3.5-5.1 [facility] Comment on above: Result Comment: [facility] potassium values may be up to 0.5 mmol/L lower than serum values. Performed By: #### L AB103, LAB17 ####Asp Net Programmer: DOMENICA JARA ([phone])[address] Protein [Mass/Vol] 7.3 g/dL Normal 6.4-8.3 [facility] Comment on above: Performed By: #### L AB103, LAB17 ####Asp Net Programmer: DOMENICA JARA ([phone])[address] Sodium [Moles/Vol] 139 mmol/L Normal 136-145 [facility] Comment on above: Performed By: #### L AB103, LAB17 ####Asp Net Programmer: DOMENICA JARA ([phone])[address] [place] [address] [place] Urea nitrogen [Mass/Vol] 16 mg/dL Normal 9-23 [facility] Comment on above: Performed By: #### L AB103, LAB17 ####Asp Net Programmer: DOMENICA JARA ([id number])[facility] ([facility])[address] [place] [address] Comprehensive metabolic 1998 panelon 03-18-2025 Albumin [Mass/Vol] 2 g/dL Low 3.5 - 5.0 g/dL [facility] ALP [Catalytic activity/Vol] 241 U/L High 40 - 150 U/L [facility] ALT [Catalytic activity/Vol] 11 U/L NINF - 40 U/L [facility] Anion gap [Moles/Vol] 10 mmol/L 3 - 13 mmol/L [facility] AST [Catalytic activity/Vol] 50 U/L High NINF - 34 U/L [facility] Bilirubin [Mass/Vol] 0.8 mg/dL NINF - 1.2 mg/dL [facility] Calcium [Mass/Vol] 9 mg/dL 8.4 - 10. 2 mg/dL [facility] Chloride [Moles/Vol] 100 mmol/L 98 - 10 7 mmol/L [facility] CO2 [Moles/Vol] 29 mmol/L 22 - 29 mmol/L [facility] Creatinine [Mass/Vol] 2.64 mg/dL High 0.72 - 1.25 mg/dL [facility] GFR/1.73 sq M.predicted (S/P/Bld) [Vol rate/Area] 27 mL/min Low - PINF [facility] Comment on above: Calculation based on the Chronic Kidney Disease Epidemiology Collaboration (CKD-EPI) equation refit without adjustment for race Glucose [Mass/Vol] 73 mg/dL Low 74 - 100 mg/dL [facility] Interpretation and review of laboratory results Abnormal [facility] Potassium [Moles/Vol] 3.4 mmol/L Low 3.5 - 5.1 mmol/L [facility] Comment on above: Plasma potassium macey ues may be up to 0.5 mmol/L lower than serum values. Protein [Mass/Vol] 7.3 g/dL 6.4 - 8.3 g/dL [facility] Sodium [Moles/Vol] 139 mmol/L 136 - 145 mmol/L [facility] Urea nitrogen [Mass/Vol] 16 mg/dL 9 - 23 mg/d L [facility] Laboratory - Chemistry and C hemistry - challengeon 03-18-2025 Magnesium [Mass/Vol] 1.9 mg/dL 1.6 - 2 .6 mg/dL [facility] Laboratory - Coagulationon 0 03-18-2025 PT Coag (Bld) [Time] 15.2 s High 9.0 - 12.0 s [facility] MAGNESIUMon 03-18-2025 Magnesium [Mass/Vol] 1.9 mg/dL Normal 1.6-2.6 [facility] Comment on above: Result Comment: ORDE R COMMENTS:Higher values can be expected in females during menses. Performed By: #### L AB103, LAB17 ####Asp Net Programmer: DOMENICA JARA ([phone])[facility])[address] [place] [address] Magnesium [Mass/Vol]on 03-18 Interpretation and review of laboratory results Normal [facility] Higher values can be expected in females during menses. [facility] No Panel Informationon 03-18 [facility] Interpretation and review of laboratory results Abnormal [facility] PROTHROMBIN TIMEon INR Coag (PPP) [Relative time] 1.5 {INR} High 0.9-1.1 [facility] Comment on above: Result Comment: Vaughn [...] Myocardial Infarction Performed By: #### L AB325, [id number] ####Asp Net Programmer: DOMENICA JARA ([phone])[facility] ([facility])[address] [place] [address] PT Coag (PPP) [Time] 15.2 s High 9.0-12.0 [facility] Comment on above: Performed By: #### L AB325, [id number] ####Asp [employer] Programmer: DOMENICA JARA ([phone])[facility] ([facility] PT Coag (Bld) [Time]on 03-18 INR Coag (PPP) [Relative time] 1.5 {INR} High 0.9 - 1.1 [facility] Comment on above: Recommended Anticoag ulant [...] Progress Noteon 03-18-2025 Progress Note Normal [facility] Progress Note Normal [facility] Progress Note Normal [facility] aPTT Coag (Bld) [Time]on aPTT Coag (PPP) [Time] 51.8 s High 20.0 - 30.5 s [facility] Interpretation and review of laboratory results Abnormal [facility] NOTE: The therapeutic time for Heparin anticoagulation, based on Xa activity inhibition, is an APTT of 46-80 seconds. [facility] aPTT Coag (PPP) [Time] 47.6 s High 20.0 - 30.5 s [facility] Interpretation and review of laboratory results Abnormal [facility] NOTE: The therapeutic time for Heparin anticoagulation, based on Xa activity inhibition, is an APTT of 46-80 seconds. [facility] aPTT Coag (PPP) [Time] 48.8 s High 20.0 - 30.5 s [facility] NOTE: The therapeutic time for Heparin anticoagulation, based on Xa activity inhibition, is an APTT of 46-80 seconds. [facility] 30on 03-17-2025 30 Normal [facility] APTTon 03-17-2025 aPTT Coag (Bld) [Time] 44.1 s High 20.0-30.5 [facility] Comment on above: Result Comment: ARPAN Kaplan COMMENTS:NOTE: The therapeutic time for Heparin anticoagulation, based on Xa activity inhibition, is an APTT of 46-80 seconds. Performed By: #### L AB325 ####Asp Net Programmer: DOMENICA JARA ([phone])[facility])[address] [place] [address] aPTT Coag (Bld) [Time] 29.1 s Normal 20.0-30.5 [facility] Comment on above: Result Comment: ARPAN Kaplan COMMENTS:NOTE: The therapeutic time for Heparin anticoagulation, based on Xa activity inhibition, is an APTT of 46-80 seconds. Performed By: #### L AB325 ####Asp [employer] Programmer: DOMENICA JARA ([phone])[facility])[address] [place] [address] CBC (HEMOGRAM)on 03-17-2025 Erythrocyte distribution width (RBC) [Ratio] 21.2 % High 11.5-15.0 [facility] Comment on above: Performed By: #### L AB294 ####Asp Net Programmer: DOMENICA JARA ([id number])[facility])[address] [place] [address] Hematocrit (Bld) [Volume fraction] 33.8 % Low 40.0-52.0 [facility] Comment on above: Performed By: #### L AB294 ####Asp [employer] Programmer: DOMENICA JARA ([phone])[address] Hemoglobin (Bld) [Mass/Vol] 10.0 g/dL Low 13.0-18.0 [facility] Comment on above: Performed By: #### L AB294 ####Asp [employer] Programmer: DOMENICA JARA ([phone])[facility])[address] [place] [address] MCH (RBC) [Entitic mass] 30.2 pg Normal 26.0-34.0 [facility] Comment on above: Performed By: #### L AB294 ####Asp Net Programmer: DOMENICA JARA ([phone])[facility] ([facility])[address] [place] [address] MCHC 29.6 % Low 30.5-36.0 [facility] Comment on above: Performed By: #### L AB294 ####Asp Net Programmer: DOMENICA JARA ([phone])[facility] ([facility])[address] [place] [address] MCV (RBC) [Entitic vol] 102.1 fL High 77.0-99.0 [facility] Comment on above: Performed By: #### L AB294 ####Asp Net Programmer: DOMENICA JARA ([phone])[facility])[address] [place] [address] Platelet mean volume (Bld) [Entitic vol] 9.2 fL Normal 9.0-12.7 [facility] Comment on above: Performed By: #### L AB294 ####Asp Net Programmer: DOMENICA JARA ([phone])[facility] ([facility])[address] [place] [address] [place] Platelets (Bld) [#/Vol] 407 10*3/uL Normal 140-440 [facility] Comment on above: Performed By: #### L AB294 ####Asp Net Programmer: DOMENICA JARA ([phone])[facility])[address] [place] [address] RBC (Bld) [#/Vol] 3.31 10*6/uL Low 4.40-5.90 [facility] Comment on above: Performed By: #### L AB294 ####Asp Net Programmer: DOMENICA JARA ([phone])[facility] ([facility])[address] [place] [address] [place] WBC (Bld) [#/Vol] 6.7 10*3/uL Normal 3.6-10.7 [facility] Comment on above: Performed By: #### L AB294 ####Asp Net Programmer: DOMENICA JARA ([phone])[facility] ([facility])[address] [place] [address] CBC panel Auto (Bld)Ordered By: Giancarlo Lakhani on 03-17-2025 Erythrocyte distribution width (RBC) [Ratio] 21.2 % High 11.5 - 15.0 % [facility] Hematocrit (Bld) [Volume fraction] 33.8 % Low 40.0 - 52.0 % [facility] Hemoglobin (Bld) [Mass/Vol] 10 g/dL Low 13.0 - 18.0 g/dL [facility] Interpretation and review of laboratory results Abnormal [facility] MCH (RBC) [Entitic mass] 30.2 pg 26. 0 - 34.0 pg [facility] MCHC (RBC) [Mass/Vol] 29.6 % Low 30.5 - 36.0 % [facility] MCV (RBC) [Entitic vol] 102.1 fL High 77.0 - 99.0 fL [facility] Platelet mean volume (Bld) [Entitic vol] 9.2 fL 9.0 - 12.7 fL [facility] Platelets (Bld) [#/Vol] 407 10*3/uL 140 - 440 10*3/uL [facility] RBC (Bld) [#/Vol] 3.31 10*6/uL Low 4.40 - 5.9 0 10*6/uL [facility] WBC (Bld) [#/Vol] 6.7 10*3/uL 3.6 - 10.7 10*3/uL [facility] COMPREHENSIVE METABOLIC PANE Victor M 03-17-2025 Albumin [Mass/Vol] 2.2 g/dL Low 3.5-5.0 [facility] Comment on above: Performed By: #### L AB17, [id number], [id number] ####Asp [employer] Programmer: DOMENICA JARA ([phone])[facility] ([facility])[address] [place] [address] ALP [Catalytic activity/Vol] 223 U/L High 40-150 [facility] Comment on above: Performed By: #### L AB17, [id number], [id number] ####Asp [employer] Programmer: DOMENICA JARA ([phone])[facility] ([facility])[address] [place] [address] ALT [Catalytic activity/Vol] 15 U/L Normal <40 [facility] Comment on above: Performed By: #### L AB17, [id number], [id number] ####Asp [employer] Programmer: DOMENICA JARA ([id number])[facility] ([facility])[address] [place] [address] Anion gap [Moles/Vol] 12 mmol/L Normal 3-13 [facility] Comment on above: Performed By: #### L AB17, [id number], [id number] ####[employer] Programmer: DOMENICA JARA ([phone])[facility] ([facility])[address] [place] [address] AST [Catalytic activity/Vol] 54 U/L High <34 [facility] Comment on above: Performed By: #### L AB17, [id number], ZGL060 ####[employer] Programmer: DOMENICA JARA ([phone])[facility] ([facility])[address] [place] [address] Bilirubin [Mass/Vol] 0.9 mg/dL Normal <1.[address] [facility] Comment on above: Performed By: #### L AB17, [id number], [id number] ####[employer] Programmer: DOMENICA JARA ([phone])[facility] ([facility])[address] [place] [address] Calcium [Mass/Vol] 9.6 mg/dL Normal 8.4-10.2 [facility] Comment on above: Performed By: #### L AB17, [id number], [id number] ####[employer] Programmer: DOMENICA JARA ([phone])[facility] ([facility])[address] [place] [address] [place] Chloride [Moles/Vol] 104 mmol/L Normal 98-[address] [facility] Comment on above: Performed By: #### L AB17, [id number], [id number] ####[employer] Programmer: DOMENICA JARA ([phone])[facility] ([facility])[address] [place] [address] CO2 [Moles/Vol] 25 mmol/L Normal 22-29 [facility] Comment on above: Performed By: #### L AB17, [id number], [id number] ####Asp Net Programmer: DOMENICA JARA ([phone])[facility])[address] [place] [address] Creatinine [Mass/Vol] 3.25 mg/dL High 0.72-1.25 [facility] Comment on above: Performed By: #### L AB17, [id number], [id number] ####Asp Net Programmer: DOMENICA JARA ([phone])[facility])[address] [place] [address] GLOMERULAR FILTRATION RATE ML/MIN/1.73 SQ M.PREDICTED 21.1 mL/min/1.73m*2 Low >60.0 [facility] Comment on above: Result Comment: Calc ulation based on the Chronic Kidney Disease Epidemiology Collaboration (CKD-EPI) equation refit without adjustment for race Performed By: #### L AB17, [id number], [id number] ####Asp Net Programmer: DOMENICA JARA ([phone])[facility])[address] [place] [address] Glucose [Mass/Vol] 87 mg/dL Normal 74-100 [facility] Comment on above: Performed By: #### L AB17, [id number], [id number] ####Asp Net Programmer: DOMENICA JARA ([phone])[address] Potassium [Moles/Vol] 3.9 mmol/L Normal 3.5-5.1 [facility] Comment on above: Result Comment: [facility] potassium values may be up to 0.5 mmol/L lower than serum values. Performed By: #### L AB17, [id number], [id number] ####Asp Net Programmer: DOMENICA JARA ([phone])[facility])[address] [place] [address] Protein [Mass/Vol] 8.0 g/dL Normal 6.4-8.3 [facility] Comment on above: Performed By: #### L AB17, [id number], [id number] ####Asp Net Programmer: DOMENICA JARA ([phone])[facility] ([facility])[address] [place] [address] Sodium [Moles/Vol] 141 mmol/L Normal 136-145 [facility] Comment on above: Performed By: #### L AB17, [id number], [id number] ####Asp Net Programmer: DOMENICA JARA ([phone])[facility] ([facility])[address] [place] [address] Urea nitrogen [Mass/Vol] 22 mg/dL Normal 9-23 [facility] Comment on above: Performed By: #### L AB17, [id number], [id number] ####Asp Net Programmer: DOMENICA JARA ([phone])[facility] ([facility])[address] [place] [address] Comprehensive metabolic 1998 panelon 03-17-2025 Albumin [Mass/Vol] 2.2 g/dL Low 3.5 - 5.0 g/dL [facility] ALP [Catalytic activity/Vol] 223 U/L High 40 - 150 U/L [facility] ALT [Catalytic activity/Vol] 15 U/L NINF - 40 U/L [facility] Anion gap [Moles/Vol] 12 mmol/L 3 - 13 mmol/L [facility] AST [Catalytic activity/Vol] 54 U/L High NINF - 34 U/L [facility] Bilirubin [Mass/Vol] 0.9 mg/dL [facility] - 1.[facility] mg/dL [facility] Calcium [Mass/Vol] 9.6 mg/dL 8.4 - 10. 2 mg/dL [facility] Chloride [Moles/Vol] 104 mmol/L 98 - 10 7 mmol/L [facility] CO2 [Moles/Vol] 25 mmol/L 22 - 29 mmol/L [facility] Creatinine [Mass/Vol] 3.25 mg/dL High 0.72 - 1.25 mg/dL [facility] GFR/1.73 sq M.predicted (S/P/Bld) [Vol rate/Area] 21.1 mL/min Low - PINF [facility] Comment on above: Calculation based on the Chronic Kidney Disease Epidemiology Collaboration (CKD-EPI) equation refit without adjustment for race Glucose [Mass/Vol] 87 mg/dL 74 - 100 mg/dL [facility] Interpretation and review of laboratory results Abnormal [facility] Potassium [Moles/Vol] 3.9 mmol/L 3.5 - 5.1 mmol/L [facility] Comment on above: Plasma potassium macey ues may be up to 0.5 mmol/L lower than serum values. Protein [Mass/Vol] 8 g/dL 6.4 - 8.3 g/dL [facility] Sodium [Moles/Vol] 141 mmol/L 136 - 145 mmol/L [facility] Urea nitrogen [Mass/Vol] 22 mg/dL 9 - 23 mg/d L [facility] Laboratory - Chemistry and C hemistry - challengeon 03-17-2025 Magnesium [Mass/Vol] 2.2 mg/dL 1.6 - 2 .6 mg/dL [facility] Laboratory - Coagulationon 0 03-17-2025 PT Coag (Bld) [Time] 16 s High 9.0 - 12.0 s [facility] MAGNESIUMon 03-17-2025 Magnesium [Mass/Vol] 2.2 mg/dL Normal 1.6-2.6 [facility] Comment on above: Result Comment: ARPAN Kaplan COMMENTS:Higher values can be expected in females during menses. Performed By: #### L AB17, [id number], [id number] ####Asp Net Programmer: DOMENICA JARA ([phone])[facility] [address] Magnesium [Mass/Vol]on 03-17 Interpretation and review of laboratory results Normal [facility] Higher values can be expected in females during menses. [facility] NT PRO BNPon 03-17-2025 NT PRO BNP >78568 High <125 [facility] Comment on above: Performed By: #### L AB17, [id number], [id number] ####Asp Net Programmer: DOMENICA JARA ([phone])[facility] ([facility])[address] [place] [address] [place] Natriuretic peptide B [Mass/ Vol]on 03-17-2025 Interpretation and review of laboratory results Abnormal [facility] Natriuretic peptide B (Bld) [Mass/Vol] pg/mL High NINF - 125 pg/mL [facility] No Panel Informationon 03-17 [facility] Nursing Noteon 03-17-2025 Nursing Note Normal [facility] PROTHROMBIN TIMEon INR Coag (PPP) [Relative time] 1.5 {INR} High 0.9-1.1 [facility] Comment on above: Result Comment: Vaughn [...] Myocardial Infarction Performed By: #### L [id number] ####Asp Net Programmer: DOMENICA JARA ([phone])[facility] ([facility])[address] [place] [address] PT Coag (PPP) [Time] 16.0 s High 9.0-12.0 [facility] Comment on above: Performed By: #### Tameka AB320 ####Asp Net Programmer: DOMENICA JARA ([phone])[facility] ([facility])[address] [place] [address] PT Coag (Bld) [Time]on 03-17 INR Coag (PPP) [Relative time] 1.5 {INR} High 0.9 - 1.1 [facility] Comment on above: Recommended Anticoag ulant [...] Interpretation and review of laboratory results Abnormal [facility] Progress Noteon 03-17-2025 Progress Note Normal [facility] Progress Note Normal [facility] Progress Note Normal [facility] aPTT Coag (Bld) [Time]on aPTT Coag (PPP) [Time] 44.1 s High 20.0 - 30.5 s [facility] Interpretation and review of laboratory results Abnormal [facility] NOTE: The therapeutic time for Heparin anticoagulation, based on Xa activity inhibition, is an APTT of 46-80 seconds. [facility] aPTT Coag (PPP) [Time] 29.1 s 20.0 - 30.5 s [facility] Interpretation and review of laboratory results Normal [facility] NOTE: The therapeutic time for Heparin anticoagulation, based on Xa activity inhibition, is an APTT of 46-80 seconds. [facility] 30on 03-16-2025 30 Normal [facility] 30 Normal [facility] CBC (HEMOGRAM)on 03-16-2025 Erythrocyte distribution width (RBC) [Ratio] 21.2 % High 11.5-15.0 [facility] Comment on above: Performed By: #### L [id number] ####Asp Net Programmer: DOMENICA JARA ([phone])[address] Hematocrit (Bld) [Volume fraction] 30.2 % Low 40.0-52.0 [facility] Comment on above: Performed By: #### L [id number] ####Asp Net Programmer: DOMENICA JARA ([phone])[facility])[address] [place] [address] Hemoglobin (Bld) [Mass/Vol] 9.1 g/dL Low 13.0-18.0 [facility] Comment on above: Performed By: #### L AB294 ####Asp Net Programmer: DOMENICA JARA ([phone])[facility])[address] [place] [address] MCH (RBC) [Entitic mass] 30.1 pg Normal 26.0-34.0 [facility] Comment on above: Performed By: #### L AB294 ####Asp Net Programmer: DOMENICA JARA ([phone])[facility])[address] [place] [address] MCHC 30.1 % Low 30.5-36.0 [facility] Comment on above: Performed By: #### L AB294 ####Asp Net Programmer: DOMENICA JARA ([phone])[facility])[address] [place] [address] MCV (RBC) [Entitic vol] 100.0 fL High 77.0-99.0 S [facility] Comment on above: Performed By: #### L AB294 ####Asp Net Programmer: DOMENICA JARA ([phone])[facility])[address] [place] [address] Platelet mean volume (Bld) [Entitic vol] 9.0 fL Normal 9.0-12.7 [facility] Comment on above: Performed By: #### L AB294 ####Asp Net Programmer: DOMENICA JARA ([phone])[facility])[address] [place] [address] Platelets (Bld) [#/Vol] 372 10*3/uL Normal 140-440 [facility] Comment on above: Performed By: #### L AB294 ####Asp Net Programmer: DOMENICA JARA ([phone])[facility])[address] [place] [address] RBC (Bld) [#/Vol] 3.02 10*6/uL Low 4.40-5.90 [facility] Comment on above: Performed By: #### L AB294 ####Asp Net Programmer: DOMENICA JARA ([phone])[facility])[address] [place] [address] WBC (Bld) [#/Vol] 7.0 10*3/uL Normal 3.6-10.7 [facility] Comment on above: Performed By: #### L AB294 ####Asp Net Programmer: DOMENICA JARA ([phone])[facility])[address] [place] [address] CBC panel Auto (Bld)Ordered By: Callie Steele on 03-16-2025 Erythrocyte distribution width (RBC) [Ratio] 21.2 % High 11.5 - 15.0 % [facility] Hematocrit (Bld) [Volume fraction] 30.2 % Low 40.0 - 52.0 % [facility] Hemoglobin (Bld) [Mass/Vol] 9.1 g/dL Low 13.0 - 18.0 g/dL [facility] Interpretation and review of laboratory results Abnormal [facility] MCH (RBC) [Entitic mass] 30.1 pg 26. 0 - 34.0 pg [facility] MCHC (RBC) [Mass/Vol] 30.1 % Low 30.5 - 36.0 % [facility] MCV (RBC) [Entitic vol] 100 fL High 77.0 - 99.0 fL [facility] Platelet mean volume (Bld) [Entitic vol] 9 fL 9.0 - 12.7 fL [facility] Platelets (Bld) [#/Vol] 372 10*3/uL 140 - 440 10*3/uL [facility] RBC (Bld) [#/Vol] 3.02 10*6/uL Low 4.40 - 5.9 0 10*6/uL [facility] WBC (Bld) [#/Vol] 7 10*3/uL 3.6 - 10.7 10*3/uL [facility] COMPREHENSIVE METABOLIC PANE Victor M 03-16-2025 Albumin [Mass/Vol] 2.0 g/dL Low 3.5-5.0 [facility] Comment on above: Performed By: #### L AB17, [id number] ####Asp Net Programmer: DOMENICA JARA ([phone])[address] ALP [Catalytic activity/Vol] 194 U/L High 40-150 [facility] Comment on above: Performed By: #### L AB17, [id number] ####Asp [employer] Programmer: DOMENICA JARA ([phone])[address] ALT [Catalytic activity/Vol] 13 U/L Normal <40 [facility] Comment on above: Performed By: #### L AB17, [id number] ####Asp Net Programmer: DOMENICA JARA ([phone])[facility])[address] [place] [address] Anion gap [Moles/Vol] 9 mmol/L Normal 3-13 [facility] Comment on above: Performed By: #### L AB17, [id number] ####Asp Net Programmer: DOMENICA JARA ([phone])[facility] ([facility])[address] [place] [address] AST [Catalytic activity/Vol] 47 U/L High <34 [facility] Comment on above: Performed By: #### L AB17, [id number] ####Asp Net Programmer: DOMENICA JARA ([phone])[facility] ([facility])[address] [place] [address] Bilirubin [Mass/Vol] 0.9 mg/dL Normal <1.[address] [facility] Comment on above: Performed By: #### L AB17, [id number] ####Asp [employer] Programmer: DOMENICA JARA ([phone])[facility] ([facility])[address] [place] [address] Calcium [Mass/Vol] 9.1 mg/dL Normal 8.4-10.2 [facility] Comment on above: Performed By: #### L AB17, [id number] ####Asp Net Programmer: DOMENICA JARA ([phone])[facility] ([facility])[address] [place] [address] Chloride [Moles/Vol] 104 mmol/L Normal 98-[address] [facility] Comment on above: Performed By: #### L AB17, [id number] ####Asp Net Programmer: DOMENICA JARA ([phone])[facility] ([facility])[address] [place] [address] [place] CO2 [Moles/Vol] 26 mmol/L Normal 22-29 [facility] Comment on above: Performed By: #### L AB17, [id number] ####Asp [employer] Programmer: DOMENICA JARA ([phone])[facility] ([facility])[address] [place] [address] [place] Creatinine [Mass/Vol] 2.35 mg/dL High 0.72-1.25 [facility] Comment on above: Performed By: #### L AB17, [id number] ####Asp [employer] Programmer: DOMENICA JARA ([phone])[facility])[address] [place] [address] GLOMERULAR FILTRATION RATE ML/MIN/1.73 SQ M.PREDICTED 31.1 mL/min/1.73m*2 Low >60.0 [facility] Comment on above: Result Comment: Calc ulation based on the Chronic Kidney Disease Epidemiology Collaboration (CKD-EPI) equation refit without adjustment for race Performed By: #### L AB17, [id number] ####Asp [employer] Programmer: DOMENICA JARA ([phone])[facility])[address] [place] [address] Glucose [Mass/Vol] 83 mg/dL Normal 74-100 [facility] Comment on above: Performed By: #### L AB17, [id number] ####Asp [employer] Programmer: DOMENICA JARA ([phone])[facility])[address] [place] [address] Potassium [Moles/Vol] 4.1 mmol/L Normal 3.5-5.1 [facility] Comment on above: Result Comment: [facility] potassium values may be up to 0.5 mmol/L lower than serum values. Performed By: #### L AB17, [id number] ####Asp [employer] Programmer: DOMENICA JARA ([phone])[facility])[address] [place] [address] Protein [Mass/Vol] 7.3 g/dL Normal 6.4-8.3 [facility] Comment on above: Performed By: #### L AB17, [id number] ####Asp [employer] Programmer: DOMENICA JARA ([phone])[facility])[address] [place] [address] [place] Sodium [Moles/Vol] 139 mmol/L Normal 136-145 [facility] Comment on above: Performed By: #### L AB17, [id number] ####Asp [employer] Programmer: DOMENICA JARA ([phone])[facility])[address] [place] [address] [place] Urea nitrogen [Mass/Vol] 18 mg/dL Normal 9-23 [facility] Comment on above: Performed By: #### L AB17, [id number] ####[employer] Programmer: DOMENICA JARA ([phone])[facility] ([facility])[address] [place] [address] Comprehensive metabolic 1998 panelon 03-16-2025 Albumin [Mass/Vol] 2 g/dL Low 3.5 - 5.0 g/dL [facility] ALP [Catalytic activity/Vol] 194 U/L High 40 - 150 U/L [facility] ALT [Catalytic activity/Vol] 13 U/L NINF - 40 U/L [facility] Anion gap [Moles/Vol] 9 mmol/L 3 - 13 mmol/L [facility] AST [Catalytic activity/Vol] 47 U/L High NINF - 34 U/L [facility] Bilirubin [Mass/Vol] 0.9 mg/dL NINF - 1.2 mg/dL [facility] Calcium [Mass/Vol] 9.1 mg/dL 8.4 - 10. 2 mg/dL [facility] Chloride [Moles/Vol] 104 mmol/L 98 - 10 7 mmol/L [facility] CO2 [Moles/Vol] 26 mmol/L 22 - 29 mmol/L [facility] Creatinine [Mass/Vol] 2.35 mg/dL High 0.72 - 1.25 mg/dL [facility] GFR/1.73 sq M.predicted (S/P/Bld) [Vol rate/Area] 31.1 mL/min Low - PINF [facility] Comment on above: Calculation based on the Chronic Kidney Disease Epidemiology Collaboration (CKD-EPI) equation refit without adjustment for race Glucose [Mass/Vol] 83 mg/dL 74 - 100 mg/dL [facility] Interpretation and review of laboratory results Abnormal [facility] Potassium [Moles/Vol] 4.1 mmol/L 3.5 - 5.1 mmol/L [facility] Comment on above: Plasma potassium macey ues may be up to 0.5 mmol/L lower than serum values. Protein [Mass/Vol] 7.3 g/dL 6.4 - 8.3 g/dL [facility] Sodium [Moles/Vol] 139 mmol/L 136 - 145 mmol/L [facility] Urea nitrogen [Mass/Vol] 18 mg/dL 9 - 23 mg/d L [facility] Laboratory - Chemistry and C hemistry - challengeon 03-16-2025 Magnesium [Mass/Vol] 2 mg/dL 1.6 - 2 .6 mg/dL [facility] Laboratory - Coagulationon 0 03-16-2025 PT Coag (Bld) [Time] 17.3 s High 9.0 - 12.0 s [facility] MAGNESIUMon 03-16-2025 Magnesium [Mass/Vol] 2.0 mg/dL Normal 1.6-2.6 [facility] Comment on above: Result Comment: ARPAN R COMMENTS:Higher values can be expected in females during menses. Performed By: #### L AB17, [id number] ####[employer] Programmer: DOMENICA JARA ([phone])[address] Magnesium [Mass/Vol]on 03-16 Interpretation and review of laboratory results Normal [facility] Higher values can be expected in females during menses. [facility] No Panel Informationon 03-16 [facility] PROTHROMBIN TIMEon INR Coag (PPP) [Relative time] 1.7 {INR} High 0.9-1.1 [facility] Comment on above: Result Comment: Vaughn [...] Myocardial Infarction Performed By: #### L AB320 ####[employer] Programmer: DOMENICA JARA ([phone])[facility] ([facility])[address] [place] [address] PT Coag (PPP) [Time] 17.3 s High 9.0-12.0 [facility] Comment on above: Performed By: #### L AB320 ####[employer] Programmer: DOMENICA [phone])[facility])[address] [place] [address] PT Coag (Bld) [Time]on 03-16 INR Coag (PPP) [Relative time] 1.7 {INR} High 0.9 - 1.1 [facility] Comment on above: Recommended Anticoag ulant [...] Interpretation and review of laboratory results Abnormal [facility] Progress Noteon 03-16-2025 Progress Note Normal [facility] Progress Note Normal [facility] Progress Note Normal [facility] Progress Note Normal [facility] Progress Note Normal [facility] 30on 03-15-2025 30 Normal [facility] 30 Normal [facility] [id number] 03-15-2025 [id number] Normal [facility] CBC (HEMOGRAM)on 03-15-2025 Erythrocyte distribution width (RBC) [Ratio] 21.3 % High 11.5-15.0 [facility] Comment on above: Performed By: #### L [id number] ####[employer] Programmer: DOMENICA JARA ([phone])[facility] ([facility])[address] [place] [address] Hematocrit (Bld) [Volume fraction] 30.1 % Low 40.0-52.0 [facility] Comment on above: Performed By: #### L AB294 ####Asp [employer] Programmer: DOMENICA JARA ([phone])[facility])[address] [place] [address] Hemoglobin (Bld) [Mass/Vol] 9.2 g/dL Low 13.0-18.0 [facility] Comment on above: Performed By: #### L AB294 ####[employer] Programmer: DOMENICA JARA ([phone])[facility] ([facility])[address] [place] [address] MCH (RBC) [Entitic mass] 30.5 pg Normal 26.0-34.0 [facility] Comment on above: Performed By: #### L AB294 ####Asp [employer] Programmer: DOMENICA JARA ([phone])[facility] ([facility])[address] [place] [address] MCHC 30.6 % Normal 30.5-36.0 [facility] Comment on above: Performed By: #### L AB294 ####Asp [employer] Programmer: DOMENICA JARA ([phone])[facility])[address] [place] [address] MCV (RBC) [Entitic vol] 99.7 fL High 77.0-99.0 S [facility] Comment on above: Performed By: #### L AB294 ####Asp [employer] Programmer: DOMENICA JARA ([phone])[facility] ([facility])[address] [place] [address] Platelet mean volume (Bld) [Entitic vol] 9.0 fL Normal 9.0-12.7 [facility] Comment on above: Performed By: #### L AB294 ####Asp [employer] Programmer: DOMENICA JARA ([phone])[facility])[address] [place] [address] Platelets (Bld) [#/Vol] 392 10*3/uL Normal 140-440 [facility] Comment on above: Performed By: #### L AB294 ####[employer] Programmer: DOMENICA JARA ([phone])[facility] ([facility])[address] [place] [address] RBC (Bld) [#/Vol] 3.02 10*6/uL Low 4.40-5.90 [facility] Comment on above: Performed By: #### L AB294 ####[employer] Programmer: DOMENICA JARA ([phone])[facility] ([facility])[address] [place] [address] WBC (Bld) [#/Vol] 6.7 10*3/uL Normal 3.6-10.7 [facility] Comment on above: Performed By: #### L AB294 ####Asp [employer] Programmer: DOMENICA JARA ([phone])[facility] ([facility])[address] [place] [address] CBC panel Auto (Bld)on 03-15 Erythrocyte distribution width (RBC) [Ratio] 21.3 % High 11.5 - 15.0 % [facility] Hematocrit (Bld) [Volume fraction] 30.1 % Low 40.0 - 52.0 % [facility] Hemoglobin (Bld) [Mass/Vol] 9.2 g/dL Low 13.0 - 18.0 g/dL [facility] Interpretation and review of laboratory results Abnormal [facility] MCH (RBC) [Entitic mass] 30.5 pg 26. 0 - 34.0 pg [facility] MCHC (RBC) [Mass/Vol] 30.6 % 30.5 - 36.0 % [facility] MCV (RBC) [Entitic vol] 99.7 fL High 77.0 - 99.0 fL [facility] Platelet mean volume (Bld) [Entitic vol] 9 fL 9.0 - 12.7 fL [facility] Platelets (Bld) [#/Vol] 392 10*3/uL 140 - 440 10*3/uL [facility] RBC (Bld) [#/Vol] 3.02 10*6/uL Low 4.40 - 5.9 0 10*6/uL [facility] WBC (Bld) [#/Vol] 6.7 10*3/uL 3.6 - 10.7 10*3/uL [facility] COMPREHENSIVE METABOLIC PANE Victor M 03-15-2025 Albumin [Mass/Vol] 2.0 g/dL Low 3.5-5.0 [facility] Comment on above: Performed By: #### L AB103, LAB17 ####[employer] Programmer: DOMENICA JARA ([phone])[facility] ([facility])[address] [place] [address] ALP [Catalytic activity/Vol] 201 U/L High 40-150 [facility] Comment on above: Performed By: #### L AB103, LAB17 ####[employer] Programmer: DOMENICA JARA ([phone])[facility])[address] [place] [address] ALT [Catalytic activity/Vol] 14 U/L Normal <40 [facility] Comment on above: Performed By: #### L AB103, LAB17 ####[employer] Programmer: DOMENICA JARA ([id number])[facility] ([facility])[address] [place] [address] Anion gap [Moles/Vol] 11 mmol/L Normal 3-13 [facility] Comment on above: Performed By: #### L AB103, LAB17 ####Asp Net Programmer: DOMENICA JARA ([phone])[facility])[address] [place] [address] AST [Catalytic activity/Vol] 49 U/L High <34 [facility] Comment on above: Performed By: #### L AB103, LAB17 ####Asp Net Programmer: DOMENICA JARA ([phone])[facility] ([facility])[address] [place] [address] Bilirubin [Mass/Vol] 0.8 mg/dL Normal <1.[address] [facility] Comment on above: Performed By: #### L AB103, LAB17 ####Asp Net Programmer: DOMENICA JARA ([phone])[facility])[address] [place] [address] Calcium [Mass/Vol] 9.2 mg/dL Normal 8.4-10.2 [facility] Comment on above: Performed By: #### L AB103, LAB17 ####Asp Net Programmer: DOMENICA JARA ([phone])[facility])[address] [place] [address] Chloride [Moles/Vol] 100 mmol/L Normal 98-[address] [facility] Comment on above: Performed By: #### L AB103, LAB17 ####Asp Net Programmer: DOMENICA JARA ([phone])[facility] ([facility])[address] [place] [address] [place] CO2 [Moles/Vol] 28 mmol/L Normal 22-29 [facility] Comment on above: Performed By: #### L AB103, LAB17 ####Asp Net Programmer: DOMENICA JARA ([phone])[facility])[address] [place] [address] Creatinine [Mass/Vol] 3.13 mg/dL High 0.72-1.25 [facility] Comment on above: Performed By: #### L AB103, LAB17 ####Asp Net Programmer: DOMENICA JARA ([phone])[facility])[address] [place] [address] GLOMERULAR FILTRATION RATE ML/MIN/1.73 SQ M.PREDICTED 22.0 mL/min/1.73m*2 Low >60.0 [facility] [place] [facility] Comment on above: Result Comment: Calc ulation based on the Chronic Kidney Disease Epidemiology Collaboration (CKD-EPI) equation refit without adjustment for race Performed By: #### L AB103, LAB17 ####Asp Net Programmer: DOMENICA JARA ([phone])[facility])[address] [place] [address] Glucose [Mass/Vol] 91 mg/dL Normal 74-100 [facility] [place] [facility] Comment on above: Performed By: #### L AB103, LAB17 ####Asp Net Programmer: DOMENICA JARA ([phone])[facility])[address] [place] [address] [place] Potassium [Moles/Vol] 4.5 mmol/L Normal 3.5-5.1 [facility] Comment on above: Result Comment: [facility] potassium values may be up to 0.5 mmol/L lower than serum values. Performed By: #### L AB103, LAB17 ####Asp Net Programmer: DOMENICA JARA ([phone])[facility])[address] [place] [address] Protein [Mass/Vol] 7.6 g/dL Normal 6.4-8.3 [facility] [place] [facility] Comment on above: Performed By: #### L AB103, LAB17 ####Asp Net Programmer: DOMENICA JARA ([phone])[facility])[address] [place] [address] Sodium [Moles/Vol] 139 mmol/L Normal 136-145 [facility] [place] [facility] Comment on above: Performed By: #### L AB103, LAB17 ####Asp Net Programmer: DOMENICA JARA ([phone])[facility])[address] [place] [address] Urea nitrogen [Mass/Vol] 30 mg/dL High 9-23 [facility] [place] [facility] Comment on above: Performed By: #### L AB103, LAB17 ####Asp Net Programmer: DOMENICA JARA ([phone])[facility])[address] [place] [address] Comprehensive metabolic 1998 panelOrdered By: Jenni Romano on 03-15-2025 Albumin [Mass/Vol] 2 g/dL Low 3.5 - 5.0 g/dL [facility] ALP [Catalytic activity/Vol] 201 U/L High 40 - 150 U/L [facility] ALT [Catalytic activity/Vol] 14 U/L [facility] Anion gap [Moles/Vol] 11 mmol/L 3 - 13 mmol/L [facility] AST [Catalytic activity/Vol] 49 U/L High [facility] - 34 U/L [facility] Bilirubin [Mass/Vol] 0.8 mg/dL [facility] - 1.2 mg/dL [facility] Calcium [Mass/Vol] 9.2 mg/dL 8.4 - 10. 2 mg/dL [facility] Chloride [Moles/Vol] 100 mmol/L 98 - 10 7 mmol/L [facility] CO2 [Moles/Vol] 28 mmol/L 22 - 29 mmol/L [facility] Creatinine [Mass/Vol] 3.13 mg/dL High 0.72 - 1.25 mg/dL [facility] GFR/1.73 sq M.predicted (S/P/Bld) [Vol rate/Area] 22 mL/min Low - PINF [facility] Comment on above: Calculation based on the Chronic Kidney Disease Epidemiology Collaboration (CKD-EPI) equation refit without adjustment for race Glucose [Mass/Vol] 91 mg/dL 74 - 100 mg/dL [facility] Interpretation and review of laboratory results Abnormal [facility] Potassium [Moles/Vol] 4.5 mmol/L 3.5 - 5.1 mmol/L [facility] Comment on above: Plasma potassium macey ues may be up to 0.5 mmol/L lower than serum values. Protein [Mass/Vol] 7.6 g/dL 6.4 - 8.3 g/dL [facility] Sodium [Moles/Vol] 139 mmol/L 136 - 145 mmol/L [facility] Urea nitrogen [Mass/Vol] 30 mg/dL High 9 - 23 mg/d L [facility] Consulton 03-15-2025 Consult Normal [facility] Consult Normal [facility] FREE T4on 03-15-2025 Free T4 [Mass/Vol] 0.89 ng/dL Normal 0.70-1.48 [facility] [place] [facility] Comment on above: Performed By: #### L AB127 ####Asp Net Programmer: DOMENICA JARA ([phone])[facility] [place] [address] Free T4 [Mass/Vol]on 025 Free T4 Dialysis [Mass/Vol] 0.89 ng/dL 0.70 - 1.48 ng/dL [facility] Interpretation and review of laboratory results Normal [facility] Laboratory - Chemistry and C hemistry - challengeon 03-15-2025 Magnesium [Mass/Vol] 2 mg/dL 1.6 - 2 .6 mg/dL [facility] Laboratory - Coagulationon 0 03-15-2025 PT Coag (Bld) [Time] 17.9 s High 9.0 - 12.0 s [facility] MAGNESIUMon 03-15-2025 Magnesium [Mass/Vol] 2.0 mg/dL Normal 1.6-2.6 [facility] Comment on above: Result Comment: ARPAN Kaplan COMMENTS:Higher values can be expected in females during menses. Performed By: #### L AB103, LAB17 ####Asp Net Programmer: DOMENICA JARA ([phone])[facility] ([facility])[address] [place] [address] Magnesium [Mass/Vol]on 03-15 Interpretation and review of laboratory results Normal [facility] Higher values can be expected in females during menses. [facility] Nursing Noteon 03-15-2025 Nursing Note Normal [facility] [place] [facility] Nursing Note Normal [facility] [place] [facility] PROTHROMBIN TIMEon INR Coag (PPP) [Relative time] 1.7 {INR} High 0.9-1.1 [facility] [place] [facility] Comment on above: Result Comment: Vaughn [...] Myocardial Infarction Performed By: #### Tameka AB320 ####Asp Net Programmer: DOMENICA JARA ([phone])[facility] ([facility])[address] [place] [address] PT Coag (PPP) [Time] 17.9 s High 9.0-12.0 [facility] Comment on above: Performed By: #### Tameka AB320 ####Asp Net Programmer: DOMENICA JARA ([phone])[address] PT Coag (Bld) [Time]on 03-15 INR Coag (PPP) [Relative time] 1.7 {INR} High 0.9 - 1.1 [facility] Comment on above: Recommended Anticoag ulant [...] Interpretation and review of laboratory results Abnormal [facility] Progress Noteon 03-15-2025 Progress Note Normal [facility] Progress Note Normal [facility] Progress Note Normal [facility] Prothrombin Time w/INRon INR Normal [facility] Comment on above: Order Comment: 412.2 Result Comment: [facility] Performed By: #### L 100.0100, L300.3900, L500.4050 #### [facility] [address] [place], [address] PROTIME Normal 11.7-14.9 [facility] Comment on above: Order Comment: 412.2 Result Comment: [facility] Performed By: #### L 100.0100, L300.3900, L500.4050 #### [facility] [address] [place], [place], [address] [place] Lower extremity arteryOrd ered By: Sulaiman Mullen on 03-15-2025 Right arm BP 130 mmHg [facility] [place] Work Phone: Lower extremity arteryon 03-15-2025 Right [...] CPACS 30on 03-14-2025 30 Normal [facility] [place] [facility] [id number] 03-14-2025 [id number] Normal [facility] [place] [facility] BASIC METABOLIC PANELon 02-25 Anion gap [Moles/Vol] 11 mmol/L Normal 3-13 [facility] Comment on above: Performed By: #### L AB15, [id number], LAB18 ####Asp Net Programmer: DOMENICA JARA ([phone])[facility])[address] [place] [address] Calcium [Mass/Vol] 10.1 mg/dL Normal 8.4-10.2 [facility] [place] [facility] Comment on above: Performed By: #### L AB15, [id number], LAB18 ####Asp Net Programmer: DOMENICA JARA ([phone])[facility] ([facility])[address] [place] [address] Chloride [Moles/Vol] 102 mmol/L Normal 98-107 [facility] Comment on above: Performed By: #### L AB15, [id number], LAB18 ####Asp Net Programmer: DOMENICA JARA ([phone])[facility] ([facility])[address] [place] [address] [place] CO2 [Moles/Vol] 28 mmol/L Normal 22-29 [facility] Comment on above: Performed By: #### L AB15, [id number], LAB18 ####Asp Net Programmer: DOMENICA JARA ([phone])[facility])[address] [place] [address] Creatinine [Mass/Vol] 4.96 mg/dL High 0.72-1.25 [facility] Comment on above: Performed By: #### L AB15, [id number], LAB18 ####Asp Net Programmer: DOMENICA [id number])[facility])[address] [place] [address] GLOMERULAR FILTRATION RATE ML/MIN/1.73 SQ M.PREDICTED 12.7 mL/min/1.73m*2 Low >60.0 [facility] [place] [facility] Comment on above: Result Comment: Calc ulation based on the Chronic Kidney Disease Epidemiology Collaboration (CKD-EPI) equation refit without adjustment for race Performed By: #### Tameka AB15, [id number], LAB18 ####Asp Net Programmer: DOMENICA JARA ([phone])[facility])[address] [place] [address] Glucose [Mass/Vol] 99 mg/dL Normal 74-100 [facility] [place] [facility] Comment on above: Performed By: #### Tameka AB15, [id number], LAB18 ####Asp Net Programmer: DOMENICA JARA ([phone])[facility])[address] [place] [address] Potassium [Moles/Vol] 5.2 mmol/L High 3.5-5.1 [facility] Comment on above: Result Comment: [facility] potassium values may be up to 0.5 mmol/L lower than serum values. Performed By: #### Tameka AB15, [id number], LAB18 ####Asp Net Programmer: DOMENICA JARA ([phone])[facility])[address] [place] [address] Sodium [Moles/Vol] 141 mmol/L Normal 136-145 [facility] [place] [facility] Comment on above: Performed By: #### Tameka AB15, [id number], LAB18 ####Asp Net Programmer: DOMENICA JARA ([phone])[facility])[address] [place] [address] [place] Urea nitrogen [Mass/Vol] 57 mg/dL High 9-23 [facility] [place] [facility] Comment on above: Performed By: #### L AB15, [id number], LAB18 ####Asp Net Programmer: DOMENICA JARA ([phone])[facility])[address] [place] [address] Basic metabolic 1998 panelOr dered By: Brandy Ross on 03-14-2025 Anion gap [Moles/Vol] 11 mmol/L 3 - 13 mmol/L [facility] Calcium [Mass/Vol] 10.1 mg/dL 8.4 - 10. 2 mg/dL [facility] Chloride [Moles/Vol] 102 mmol/L 98 - 10 7 mmol/L [facility] CO2 [Moles/Vol] 28 mmol/L 22 - 29 mmol/L [facility] Creatinine [Mass/Vol] 4.96 mg/dL High 0.72 - 1.25 mg/dL [facility] GFR/1.73 sq M.predicted (S/P/Bld) [Vol rate/Area] 12.7 mL/min Low - PINF [facility] Comment on above: Calculation based on the Chronic Kidney Disease Epidemiology Collaboration (CKD-EPI) equation refit without adjustment for race Glucose [Mass/Vol] 99 mg/dL 74 - 100 mg/dL [facility] Interpretation and review of laboratory results Abnormal [facility] Potassium [Moles/Vol] 5.2 mmol/L High 3.5 - 5.1 mmol/L [facility] Comment on above: Plasma potassium macey ues may be up to 0.5 mmol/L lower than serum values. Sodium [Moles/Vol] 141 mmol/L 136 - 145 mmol/L [facility] Urea nitrogen [Mass/Vol] 57 mg/dL High 9 - 23 mg/d L [facility] Consulton 03-14-2025 Consult Normal [facility] [place] [facility] Consult Normal [facility] [facility] Consult Normal [facility] Consult Normal [facility] [facility] ECG 12-LEADon 03-14-2025 ECG 12-LEAD IMPRESSION: Atrial flutter IVCD, consider RBBB Probable lateral infarct, age indeterminate Anteroseptal infarct, 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 Electronically Signed On 03-14-2025 15:38:49 EDT by Ryan Magdaleno Normal [facility] [place] [facility] LIPID PANELon 03-14-2025 Cholesterol [Mass/Vol] 159 mg/dL Normal <200 [facility] Comment on above: Performed By: #### L AB15, [id number], LAB18 ####Asp Net Programmer: DOMENICA JARA ([phone])[facility] ([facility])[address] [place] [address] [place] Cholesterol in HDL [Mass/Vol] 30 mg/dL Low >=60 [facility] Comment on above: Performed By: #### Tameka AB15, [id number], LAB18 ####Asp Net Programmer: DOMENICA JARA ([phone])[facility])[address] [place] [address] [place] Cholesterol.total/Choles terol in HDL [Mass ratio] 5 {ratio} Normal [facility] [place] [facility] Comment on above: Result Comment: Ref Range:< 3 Low Risk for CHD3-6 Mod Risk for CHD> 6 High Risk for CHD Performed By: #### L AB15, [id number], LAB18 ####Asp Net Programmer: DOMENICA JARA ([phone])[facility] ([facility])[address] [place] [address] LOW DENSITY LIPOPROTEIN 109 mg/dL High 0-<100 [facility] Comment on above: Performed By: #### Tameka RINCON, [id number], LAB18 ####Asp Net Programmer: DOMENICA JARA ([phone])[facility] ([facility])[address] [place] [address] [place] NON-HDL CHOLESTEROL, CALCULATED 129 Normal <130 [facility] [place] [facility] Comment on above: Performed By: #### Tameka ISAAC15, [id number], LAB18 ####Asp Net Programmer: DOMENICA JARA ([phone])[facility] ([facility])[address] [place] [address] Triglyceride [Mass/Vol] 98 mg/dL Normal <150 [facility] Comment on above: Performed By: #### Tameka AB15, [id number], LAB18 ####Asp Net Programmer: DOMENICA JARA ([phone])[facility] ([facility])[address] [place] [address] [place] VERY LOW DENSITY LIPOPROTEIN, CALCULATED 20 mg/dL Normal <=30 [facility] Comment on above: Performed By: #### L AB15, [id number], LAB18 ####Asp Net Programmer: DOMENICA JARA ([phone])[facility] ([facility])[address] [place] [address] Laboratory - Chemistry and C hemistry - challengeon 03-14-2025 Magnesium [Mass/Vol] 2.2 mg/dL 1.6 - 2 .6 mg/dL [facility] [place] Lipid 1996 panelon Cholesterol [Mass/Vol] 159 mg/dL NINF - 200 mg/dL [facility] [place] Cholesterol in HDL [Mass/Vol] 30 mg/dL Low 60 - PINF mg/dL [facility] [place] Cholesterol in LDL [Mass/Vol] 109 mg/dL High 0 - <100 [facility] [place] Cholesterol.total/Choles terol in HDL [Mass ratio] 5 {ratio} [facility] [place] Comment on above: Ref Range: < 3 Low Risk for CHD 3-6 Mod Risk for CHD > 6 High Risk for CHD Interpretation and review of laboratory results Abnormal [facility] [place] NON-HDL CHOLESTEROL, CALCULATED 129 NINF - 130 [facility] [place] Triglyceride [Mass/Vol] 98 mg/dL NINF - 150 mg/dL [facility] [place] VERY LOW DENSITY LIPOPROTEIN, CALCULATED 20 mg/dL [facility] - [facility] mg/dL [facility] [place] MAGNESIUMon 03-14-2025 Magnesium [Mass/Vol] 2.2 mg/dL Normal 1.6-2.6 [facility] Comment on above: Result Comment: ARPAN Kaplan COMMENTS:Higher values can be expected in females during menses. Performed By: #### L AB15, [id number], LAB18 ####Asp Net Programmer: DOMENICA JARA ([phone])[address] Magnesium [Mass/Vol]on 03-14 Interpretation and review of laboratory results Normal [facility] [place] Higher values can be expected in females during menses. [facility] [place] No Panel InformationOrdered By: Ryan Magdaleno on 03-14-[address] [place] [address] [place] Work Phone: [place] Interval [address] [place] Work Phone: QRS [place] 146 degrees [employer] Work Phone: QRSD Interval 127 ms [facility] [employer] Work Phone: QT Interval [address] [place] Work Phone: QTC Interval [address] [place] Work Phone: T Wave [place] -57 degrees [facility] [place] Work Phone: [facility] [place] Work Phone: No Panel Informationon 03-14 Atrial flutter IVCD, consider RBBB Probable lateral infarct, age indeterminate Anteroseptal infarct, 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 Electronically Signed On 03-14-2025 15:38:49 EDT by Ryan Yeboah MD - 03/14/2025 IMPRESSION: Atrial flutter IVCD, consider RBBB Probable lateral infarct, age indeterminate Anteroseptal infarct, 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 Electronically Signed On 03-14-2025 15:38:49 EDT by Ryan Magdaleno [facility] Nursing Noteon 03-14-2025 Nursing Note Normal [facility] [place] [facility] Progress Noteon 03-14-[address] [facility] Progress Note Normal [facility] Progress Note Normal [facility] Vital signsOrdered By: Ryan Magdaleno on 03-14-2025 Heart rate 112 /min bpm [facility] [place] Work Phone: 30on 03-13-2025 30 Normal [facility] [place] [facility] BLOOD GAS, VENOUSon 03-13-20 25 AMOUNT OF OXYGEN Normal [facility] Comment on above: Result Comment: ARPAN Kaplan COMMENTS:Assessment of oxygenation is best done with an arterial blood gas determination. Reference ranges for pO2, bicarbonate, and base excess are for mixed venous blood. Specimens drawn from a peripheral vein will often have higher values. Performed By: #### L AB79 ####Asp Net Programmer: FENG CONSTANTINO ([phone])[facility] ([facility])[address] [place] [address] Base excess Calc (BldV) [Moles/Vol] 2.2 mmol/L Normal -3.0-3.0 [facility] [place] [facility] Comment on above: Performed By: #### L AB79 ####Asp Net Programmer: FENG CONSTANTINO ([phone])[facility] ([facility])[address] [place] [address] CO2 [Moles/Vol] 28.9 mmol/L Normal 23.0-30.0 [facility] Comment on above: Performed By: #### L AB79 ####Asp Net Programmer: FENG CONSTANTINO ([phone])[facility] ([facility])[address] HCO3 (Bld) [Moles/Vol] 27.5 mmol/L Normal 21.0-30.[address] [facility] Comment on above: Performed By: #### L AB79 ####Asp Net Programmer: FENG CONSTANTINO ([phone])[facility] ([facility])[address] Hemoglobin (Bld) [Mass/Vol] 11.8 g/dL Low Screen only [facility] Comment on above: Performed By: #### L AB79 ####Asp Net Programmer: FENG CONSTANTINO ([phone])[facility] ([facility])[address] OXYGEN (MM HG) IN VENOUS BLOOD 33.5 mm Hg Normal [facility] [place] [facility] Comment on above: Performed By: #### L AB79 ####Asp Net Programmer: FENG CONSTANTINO ([phone])[facility] ([facility])[address] [place] [address] OXYGEN SATURATION (%) IN VENOUS BLOOD 57.2 % Normal [facility] [place] [facility] Comment on above: Performed By: #### L AB79 ####Asp Net Programmer: FENG CONSTANTINO ([id number])[facility] ([facility])[address] [place] [address] [place] PCO2, JOHNATHAN 45.6 mm Hg Normal 38.0-56.0 [facility] Comment on above: Performed By: #### L AB79 ####Asp Net Programmer: FENG CONSTANTINO ([phone])[facility] ([facility])[address] [place] [address] PH VENOUS 7.398 Normal 7.320-7.420 [facility] Comment on above: Performed By: #### L AB79 ####Asp Net Programmer: FENG CONSTANTINO ([phone])[facility] ([facility])[address] SOURCE OF OXYGEN Nasal Cannula (LPM) Normal [facility] Comment on above: Performed By: #### L AB79 ####Asp Net Programmer: FENG CONSTANTINO ([phone])[facility] ([facility])[address] CBC W Auto Differential pane l (Bld)Ordered By: Lakisha Paula on 03-13-2025 Basophils (Bld) [#/Vol] 0.1 10*3/uL 0.0 - 0.2 10*3/uL [facility] [place] Basophils/100 WBC (Bld) 0.6 % 0.0 - 2.0 % [facility] Eosinophils (Bld) [#/Vol] 0.2 10*3/uL 0.0 - 0.5 10*3/uL [facility] Eosinophils/100 WBC (Bld) 2 % 0.0 - 6.0 % [facility] Erythrocyte distribution width (RBC) [Ratio] 21.2 % High 11.5 - 15.0 % [facility] Hematocrit (Bld) [Volume fraction] 28.4 % Low 40.0 - 52.0 % [facility] Hemoglobin (Bld) [Mass/Vol] 8.5 g/dL Low 13.0 - 18.0 g/dL [facility] Immature granulocytes (Bld) [#/Vol] 0 10*3/uL NINF - 0.1 10*3/uL [facility] [place] Immature granulocytes/100 WBC (Bld) 0.5 % 0.0 - 2.0 % [facility] Interpretation and review of laboratory results Abnormal [facility] Lymphocytes (Bld) [#/Vol] 1.2 10*3/uL 1.0 - 4.3 10*3/uL [facility] Lymphocytes/100 WBC (Bld) 15.4 % 15.0 - 45.0 % [facility] MCH (RBC) [Entitic mass] 29.7 pg 26. 0 - 34.0 pg [facility] MCHC (RBC) [Mass/Vol] 29.9 % Low 30.5 - 36.0 % [facility] MCV (RBC) [Entitic vol] 99.3 fL High 77.0 - 99.0 fL [facility] Monocytes (Bld) [#/Vol] 1.4 10*3/uL High 0.0 - 0.9 10*3/uL [facility] Monocytes/100 WBC (Bld) 16.9 % High 5.0 - 13.0 % [facility] Neutrophils (Bld) [#/Vol] 5.2 10*3/uL 1.8 - 7.5 10*3/uL [facility] Neutrophils/100 WBC (Bld) 64.6 % 38.0 - 82.0 % [facility] Nucleated RBC/100 WBC (Bld) [Ratio] 0 % [facility] [place] Platelet mean volume (Bld) [Entitic vol] 9.2 fL 9.0 - 12.7 fL [facility] [place] Platelets (Bld) [#/Vol] 392 10*3/uL 140 - 440 10*3/uL [facility] RBC (Bld) [#/Vol] 2.86 10*6/uL Low 4.40 - 5.9 0 10*6/uL [facility] WBC (Bld) [#/Vol] 8 10*3/uL 3.6 - 10.7 10*3/uL [facility] CBC WITH AUTO DIFFERENTIALon 03-13-2025 Basophils (Bld) [#/Vol] 0.1 10*3/uL Normal 0.0-0.2 [facility] Comment on above: Performed By: #### L [id number] ####Asp Net Programmer: FENG CONSTANTINO ([id number])[facility]OD[facility]and[facility] ([facility])[address] [place] [address] Basophils/100 WBC (Bld) 0.6 % Normal 0.0-2.0 [facility] Comment on above: Performed By: #### L [id number] ####Asp Net Programmer: FENG CONSTANTINO ([phone])[facility] (SBAB)[address] Eosinophils (Bld) [#/Vol] 0.2 10*3/uL Normal 0.0-0.5 [facility] Comment on above: Performed By: #### L [id number] ####Asp Net Programmer: FENG CONSTANTINO ([id number])[facility] (SBHLAB)[address] Eosinophils/100 WBC (Bld) 2.0 % Normal 0.0-6.0 [facility] Comment on above: Performed By: #### L [id number] ####Asp Net Programmer: FENG CONSTANTINO ([id number])[facility] (SBAB)[address] Erythrocyte distribution width (RBC) [Ratio] 21.2 % High 11.5-15.0 [facility] Comment on above: Performed By: #### L [id number] ####Asp Net Programmer: FENG CONSTANTINO ([phone])[facility] ([facility])[address] [place] [address] Hematocrit (Bld) [Volume fraction] 28.4 % Low 40.0-52.0 [facility] Comment on above: Performed By: #### L [id number] ####Asp Net Programmer: FENG CONSTANTINO ([phone])[facility] ([facility])[address] Hemoglobin (Bld) [Mass/Vol] 8.5 g/dL Low 13.0-18.0 [facility] Comment on above: Performed By: #### L [id number] ####Asp Net Programmer: FENG CONSTANTINO ([phone])[facility] (SBAB)[address] IMMATURE GRANS % 0.5 % Normal 0.0-2.0 [facility] Comment on above: Performed By: #### L [id number] ####Asp Net Programmer: FENG CONSTANTINO ([phone])[facility] ([facility])[address] IMMATURE GRANS ABSOLUTE 0.0 10*3/uL Normal <0.1 [facility] Comment on above: Performed By: #### L [id number] ####Asp Net Programmer: FENG CONSTANTINO ([id number])[facility] GALINDO[facility]andana (SBHLAB)[address] Lymphocytes (Bld) [#/Vol] 1.2 10*3/uL Normal 1.0-4.3 [facility] Comment on above: Performed By: #### L [id number] ####Asp Net Programmer: FENG COLEGEORGE ([phone])[facility] GAL[facility] (SBHLAB)[address] Lymphocytes/100 WBC (Bld) 15.4 % Normal 15.0-45.0 [facility] Comment on above: Performed By: #### L [id number] ####Asp Net Programmer: FENG CONSTANTINO ([id number])[facility] GALINDON (SBHLAB)[address] MCH (RBC) [Entitic mass] 29.7 pg Normal 26.0-34.0 [facility] Comment on above: Performed By: #### L [id number] ####Asp Net Programmer: FENG CONSTANTINO ([id number])[facility]ENTERMatt GALINDOChandana (SBHLAB)[address] MCHC 29.9 % Low 30.5-36.0 [facility] Comment on above: Performed By: #### L [id number] ####Asp Net Programmer: FENG CONSTANTINO ([phone])[facility]Matt MYERSMARN (SBHLAB)[address] MCV (RBC) [Entitic vol] 99.3 fL High 77.0-99.0 [facility] Comment on above: Performed By: #### L [id number] ####Asp Net Programmer: FENG CONSTANTINO ([phone])[facility]ENTERMatt [place] (SBHLAB)[address] Monocytes (Bld) [#/Vol] 1.4 10*3/uL High 0.0-0.9 [facility] Comment on above: Performed By: #### L [id number] ####Asp Net Programmer: FENG CONSTANTINO ([id number])[facility] (SBHLAB)[address] [place] [address] [place] Monocytes/100 WBC (Bld) 16.9 % High 5.0-13.0 [facility] Comment on above: Performed By: #### L [id number] ####Asp Net Programmer: FENG CONSTANTINO ([id number])[facility] [place] (SBHLAB)[address] NEUTROPHILS ABSOLUTE 5.2 10*3/uL Normal 1.8-7.5 [facility] Comment on above: Performed By: #### L [id number] ####Asp Net Programmer: FENG CONSTANTINO ([phone])[facility] [place] (SBHLAB)[address] Neutrophils/100 WBC (Bld) 64.6 % Normal 38.0-82.0 [facility] [place] [facility] Comment on above: Performed By: #### L [id number] ####Asp Net Programmer: FENG CONSTANTINO ([id number])[facility] [place] (SBHLAB)[address] NRBC 0.0 /100 WBCs Normal 0.0-2.0 [facility] Comment on above: Performed By: #### L [id number] ####Asp Net Programmer: FENG CONSTANTINO ([id number])[facility] [place] (SBHLAB)[address] [place] [address] [place] Platelet mean volume (Bld) [Entitic vol] 9.2 fL Normal 9.0-12.7 [facility] Comment on above: Performed By: #### L [id number] ####Asp Net Programmer: FENG CONSTANTINO ([phone])[facility] [place] (SBHLAB)[address] [place] [address] [place] Platelets (Bld) [#/Vol] 392 10*3/uL Normal 140-440 [facility] Comment on above: Performed By: #### L [id number] ####Asp Net Programmer: FENG CONSTANTINO ([id number])[facility] [place] (SBHLAB)[address] RBC (Bld) [#/Vol] 2.86 10*6/uL Low 4.40-5.90 [facility] [place] [facility] Comment on above: Performed By: #### L [id number] ####Asp Net Programmer: FENG CONSTANTINO ([phone])[facility] (SBHLAB)[address] WBC (Bld) [#/Vol] 8.0 10*3/uL Normal 3.6-10.7 [facility] [place] [facility] Comment on above: Performed By: #### L [id number] ####Asp Net Programmer: FENG CONSTANTINO ([id number])[facility] (SBHLAB)[address] [place] [address] COMPREHENSIVE METABOLIC PANE Victor M 03-13-2025 Albumin [Mass/Vol] 1.5 g/dL Low 3.5-5.0 [facility] [place] [facility] Comment on above: Performed By: #### L [id number] ####Asp Net Programmer: FENG CONSTANTINO ([phone])[facility] (SBHLAB)[address] ALP [Catalytic activity/Vol] 122 U/L Normal 40-150 [facility] [place] [facility] Comment on above: Performed By: #### L [id number] ####Asp Net Programmer: FENG CONSTANTINO ([id number])[facility] (SBHLAB)[address] ALT [Catalytic activity/Vol] 7 U/L Normal <40 [facility] [place] [facility] Comment on above: Performed By: #### L [id number] ####Asp Net Programmer: FENG CONSTANTINO ([phone])[facility] (SBHLAB)[address] Anion gap [Moles/Vol] 6 mmol/L Normal 3-13 [facility] Comment on above: Performed By: #### L [id number] ####Asp Net Programmer: FENG CONSTANTINO ([id number])[facility] (SBHLAB)[address] AST [Catalytic activity/Vol] 37 U/L High <34 [facility] [place] [facility] Comment on above: Performed By: #### L [id number] ####Asp Net Programmer: FENG CONSTANTINO ([id number])[facility] (SBHLAB)[address] Bilirubin [Mass/Vol] 0.5 mg/dL Normal <1.2 [facility] Comment on above: Performed By: #### L [id number] ####Asp Net Programmer: FENG CONSTANTINO ([id number])[facility] [place] (SBHLAB)[address] Calcium [Mass/Vol] 7.3 mg/dL Low 8.4-10.2 [facility] [place] [facility] Comment on above: Performed By: #### L [id number] ####Asp Net Programmer: FENG CONSTANTINO ([id number])[facility] [place] (SBHLAB)[address] Chloride [Moles/Vol] 110 mmol/L High 98-[address] [facility] Comment on above: Performed By: #### L [id number] ####Asp Net Programmer: FENG CONSTANTINO ([phone])[facility] (SBHLAB)[address] CO2 [Moles/Vol] 25 mmol/L Normal 22-29 [facility] Comment on above: Performed By: #### L [id number] ####Asp Net Programmer: FENG CONSTANTINO ([phone])[facility] [place] (SB[facility]AB)[address] [place] [address] [place] Creatinine [Mass/Vol] 3.32 mg/dL High 0.72-1.25 [facility] Comment on above: Performed By: #### L [id number] ####Asp Net Programmer: FENG CONSTANTINO ([phone])[facility] [place] (SBHLAB)[address] GLOMERULAR FILTRATION RATE ML/MIN/1.73 SQ M.PREDICTED 20.5 mL/min/1.73m*2 Low >60.0 [facility] [place] [facility] Comment on above: Result Comment: Calc ulation based on the Chronic Kidney Disease Epidemiology Collaboration (CKD-EPI) equation refit without adjustment for race Performed By: #### L [id number] ####Asp Net Programmer: FENG CONSTANTINO ([id number])[facility] (SBHLAB)[address] Glucose [Mass/Vol] 71 mg/dL Low 74-100 [facility] [place] [facility] Comment on above: Performed By: #### L [id number] ####Asp Net Programmer: FENG CONSTANTINO ([phone])[facility] (SBHLAB)[address] Potassium [Moles/Vol] 3.5 mmol/L Normal 3.5-5.1 [facility] Comment on above: Result Comment: [facility] potassium values may be up to 0.5 mmol/L lower than serum values. Performed By: #### L [id number] ####Asp Net Programmer: FENG CONSTANTINO ([phone])[facility] (SBHLAB)[address] Protein [Mass/Vol] 5.5 g/dL Low 6.4-8.3 [facility] [place] [facility] Comment on above: Performed By: #### L [id number] ####Asp Net Programmer: FENG CONSTANTINO ([phone])[facility] (SBHLAB)[address] [place] [address] [place] Sodium [Moles/Vol] 141 mmol/L Normal 136-145 [facility] Comment on above: Performed By: #### L [id number] ####Asp Net Programmer: FNEG CONSTANTINO ([phone])[facility] (SBHLAB)[address] Urea nitrogen [Mass/Vol] 41 mg/dL High 9-23 [facility] [place] [facility] Comment on above: Performed By: #### L [id number] ####Asp Net Programmer: FENG CONSTANTINO ([phone])[facility] (SBHLAB)[address] [place] [id number] [facility] CT CHEST WO IV CONTRASTon CT CHEST WO IV CONTRAST Normal S [facility] CT Chest WO contraston 03-13 1. Congestive [...] Electronically Signed Date/Time: 03/13/2025 12:44 PM EDT [employer] SYSTEM Patient Name: JUN SNYDER : 1965 [...] fracture or destructive osseous lesion is identified. [facility] Bettye Ribera MD - 03/13/2025 Patient Name: [...] Electronically Signed Date/Time: 03/13/2025 12:44 PM EDT [facility] Radiology Study observation (narrative) [facility] meredith Comprehensive Metabolic Prof ilon 03-13-2025 Bilirubin [Mass/Vol] 0.62 mg/dL Normal 0.00-1.30 [facility] Comment on above: Order Comment: 413.2 Performed By: #### L 100.0100, L300.3900, L500.4050 #### [facility] [address] [place], [place], [id number] Comprehensive metabolic 1998 panelon 03-13-2025 Albumin [Mass/Vol] 1.5 g/dL Low 3.5 - 5.0 g/dL [facility] ALP [Catalytic activity/Vol] 122 U/L 40 - 150 U/L [facility] ALT [Catalytic activity/Vol] 7 U/L NINF - 40 U/L [facility] Anion gap [Moles/Vol] 6 mmol/L 3 - 13 mmol/L [facility] AST [Catalytic activity/Vol] 37 U/L High NINF - 34 U/L [facility] Bilirubin [Mass/Vol] 0.5 mg/dL NINF - 1.2 mg/dL [facility] Calcium [Mass/Vol] 7.3 mg/dL Low 8.4 - 10. 2 mg/dL [facility] Chloride [Moles/Vol] 110 mmol/L High 98 - 10 7 mmol/L [facility] CO2 [Moles/Vol] 25 mmol/L 22 - 29 mmol/L [facility] Creatinine [Mass/Vol] 3.32 mg/dL High 0.72 - 1.25 mg/dL [facility] GFR/1.73 sq M.predicted (S/P/Bld) [Vol rate/Area] 20.5 mL/min Low - PINF [facility] Comment on above: Calculation based on the Chronic Kidney Disease Epidemiology Collaboration (CKD-EPI) equation refit without adjustment for race Glucose [Mass/Vol] 71 mg/dL Low 74 - 100 mg/dL [facility] Interpretation and review of laboratory results Abnormal [facility] Potassium [Moles/Vol] 3.5 mmol/L 3.5 - 5.1 mmol/L [facility] Comment on above: Plasma potassium macey ues may be up to 0.5 mmol/L lower than serum values. Protein [Mass/Vol] 5.5 g/dL Low 6.4 - 8.3 g/dL [facility] Sodium [Moles/Vol] 141 mmol/L 136 - 145 mmol/L [facility] Urea nitrogen [Mass/Vol] 41 mg/dL High 9 - 23 mg/d L [facility] ECG 12-LEADon 03-13-2025 ECG 12-LEAD Normal [facility] [place] [facility] ED Nursing Noteon 03-13-2025 ED Nursing Note When this RN came back from lunch Pt was already taken to [facility] by Consuelo Day. RN covering my lunch called report to RN at [facility]. Normal [facility] [place] [facility] ED Nursing Note Called report to SWEETIE Linder at 5W. Normal [facility] [place] [facility] ED Nursing Note Consuelo Johnson at bedside to transport patient to [facility]. Normal [facility] [place] [facility] ED Provider Noteon ED Provider Note Normal [facility] HIGH SENSITIVITY TROPONIN, S ERIAL BASELINEon 03-13-2025 TROPONIN HS SERIAL BASELINE 39 ng/L High <=35 [facility] [place] [facility] Comment on above: Result Comment: In i ndividuals presenting with symptoms > 2h, a baseline troponin <= 5 ng/L suggests acutecardiac injury is unlikely and further serial testing is generally not indicated. Performed By: #### L [id number] ####Asp Net Programmer: FENG CONSTANTINO ([phone])[facility] (SBHLAB)[address] [place] [address] HIGH SENSITIVITY TROPONIN, S ERIAL, SECOND TESTon 03-13-2025 2H TROPONIN HS (SERIAL 2ND TROPONIN) 44 ng/L High <=35 [facility] [place] [facility] Comment on above: Result Comment: 2h [...] 3rd serial troponin Performed By: #### L [id number], [id number], [id number] ####Asp Net Programmer: DOMENICA JARA ([phone])[facility] ([facility])[address] [place] [address] HIGH SENSITIVITY TROPONIN, S ERIAL, THIRD TESTon 03-13-2025 4H TROPONIN HS (SERIAL 3RD TROPONIN) 50 ng/L High <=35 [facility] [place] [facility] Comment on above: Result Comment: 4h t roponin (3rd troponin) samples collected between 1h 40 min and 2h and 20 min of the 2h troponin collection time can be utilized to interpret delta troponins as per [facility] algorithms. Samples collected outside this timeframe need to be interpreted clinically.Rising or falling troponin delta between 2 ??? 15 ng/L as compared to 2h troponin valuerequires further evaluation. Performed By: #### L [id number] ####Asp [employer] Programmer: DOMENICA JARA ([phone])[facility] ([address] Laboratory - Chemistry and C hemistry - challengeon 03-13-2025 TSH Qn 6.88 m[IU]/L High [facility] Laboratory - Chemistry and C hemistry - challengeOrdered By: Miya Ang on 03-13-2025 Base excess Calc (BldV) [Moles/Vol] 2.2 mmol/L -3.0 - 3.0 mmol/L [facility] CO2 (BldV) [Partial pressure] 45.6 mm[Hg] [facility] CO2 [Moles/Vol] 28.9 mmol/L 23.0 - 30.0 mmol/L [facility] HCO3 (Bld) [Moles/Vol] 27.5 mmol/L 21.0 - 30.0 mmol/L [facility] Oxygen (BldV) [Partial pressure] 33.5 mm[Hg] mm Hg [facility] pH (BldV) 7.398 [pH] 7.320 - 7.420 [facility] Laboratory - Coagulationon 0 03-13-2025 PT Coag (Bld) [Time] 17.7 s High 9.0 - 12.0 s [facility] Laboratory - Hematology and Cell countsOrdered By: Miya Ang on 03-13-2025 Hemoglobin (Bld) [Mass/Vol] 11.8 g/dL Low 13.5 - 17.5 g/dl [facility] Laboratory - Microbiology an d Antimicrobial susceptibilityon 03-13-2025 FLUAV RNA EMMANUEL+probe Ql (Resp) Not detected Not Detected [facility] FLUBV RNA EMMANUEL+probe Ql (Resp) Not detected Not Detected [facility] RSV RNA EMMANUEL+probe Ql (Resp) Not detected Not Detected [facility] SARS-CoV-2 (COVID-19) RNA EMMANUEL+probe Ql (Resp) Not detected Not Detected [facility] SARS-CoV-2 (COVID-19) RNA EMMANUEL+probe Ql (Unsp spec) Methodology: real-time, RT-PCR The SARS-CoV-2, Flu A/B, and RSV Combo assay is intended for in vitro diagnostic use under the FDA Emergency Use Authorization (EUA). This test has not been FDA cleared or approved. In compliance with this authorization, please visit www.fda.gov/media/ 8001/download or www.fda.gov/media/ 008/download to access the applicable information sheets. [facility] NT PRO BNPon 03-13-2025 NT PRO BNP >[address] High <125 [facility] Comment on above: Performed By: #### L [id number], [id number], [id number] ####[employer] Programmer: DOMENICA JARA ([phone])[facility] ([facility])[address] [place] [address] Natriuretic peptide B [Mass/ Vol]on 03-13-2025 Interpretation and review of laboratory results Abnormal [facility] Natriuretic peptide B (Bld) [Mass/Vol] pg/mL High NINF - 125 pg/mL [facility] No Panel Informationon 03-13 4h Troponin HS (Serial 3rd Troponin) 50 ng/L High NINF - 35 ng/L [facility] Comment on above: 4h troponin (3rd [...] Interpretation and review of laboratory results Abnormal [facility] 2h Troponin HS (Serial 2nd Troponin) 44 ng/L High NINF - 35 ng/L [facility] Comment on above: 2h troponin (2nd [...] Interpretation and review of laboratory results Abnormal [facility] Interpretation and review of laboratory results Abnormal [facility] Troponin HS Serial Baseline 39 ng/L High NINF - 35 ng/L [facility] Comment on above: In individuals prese nting with symptoms > 2h, a baseline troponin <= 5 ng/L suggests acute cardiac injury is unlikely and further serial testing is generally not indicated. [facility] P [place] 0 degrees [facility] NV Interval 0 ms [facility] QRS [place] 66 degrees [facility] QRSD Interval 113 ms [facility] QT Interval 372 ms [facility] QTC Interval 520 ms [facility] T Wave [place] 228 degrees [facility] Atrial flutter with predominant 2:1 AV [...] On 03-13-2025 08:47:27 EDT by Keiry Solares [facility] No Panel InformationOrdered By: Miya Ang on 03-13-2025 Amount Of Oxygen [facility] alth Interpretation and review of laboratory results Abnormal [facility] Source Of Oxygen Nasal Cannula (LPM) [facility] Assessment of oxygenation is best done with an arterial blood gas determination. Reference ranges for pO2, bicarbonate, and base excess are for mixed venous blood. Specimens drawn from a peripheral vein will often have higher values. [facility] Nursing Noteon 03-13-2025 Nursing Note Removed wound vac that patient [facility] pictures of all wound taken on rover and saved to chart NSWto DSD applied to sacral wound Normal [facility] [place] [facility] PROTHROMBIN TIMEon INR Coag (PPP) [Relative time] 1.7 {INR} High 0.9-1.1 [facility] [place] [facility] Comment on above: Result Comment: Vaughn [...] Myocardial Infarction Performed By: #### L [id number] ####[employer] Programmer: FENG CONSTANTINO ([phone])[facility] ([facility])[address] [place] [address] PT Coag (PPP) [Time] 17.7 s High 9.0-12.0 [facility] Comment on above: Performed By: #### L [id number] ####Asp Net Programmer: FENG CONSTANTINO ([phone])[facility] ([facility])[address] [place] [address] PT Coag (Bld) [Time]on 03-13 INR Coag (PPP) [Relative time] 1.7 {INR} High 0.9 - 1.1 [facility] Comment on above: Recommended Anticoag ulant [...] Interpretation and review of laboratory results Abnormal [facility] SARS-COV-2, FLU A/B, AND RSV COMBOon 03-13-2025 SARS-CoV-2 (COVID-19) RNA EMMANUEL+probe Ql (Unsp spec) Normal [facility] [place] [facility] Comment on above: Performed By: #### L [id number] ####[employer] Programmer: FENG CONSTANTINO ([phone])[facility] ([facility])[address] [place] [address] SARS-CoV-2, Flu A/B, and RSV Comboon 03-13-2025 Interpretation and review of laboratory results Normal [facility] THYROID STIMULATING HORMONEo n 03-13-2025 THYROID STIMULATING HORMONE 6.88 uIU/mL High 0.35-4.94 [facility] [place] [facility] Comment on above: Performed By: #### L [id number], [id number], [id number] ####[employer] Programmer: DOMENICA JARA ([phone])[facility] ([facility])[address] [place] [address] TSH Qnon 03-13-2025 Interpretation and review of laboratory results Abnormal [facility] Vital signsOrdered By: Delicia Ang on 03-13-2025 Oxygen saturation in Venous blood 57.2 % [facility] Vital signson 03-13-2025 Heart rate 117 /min bpm [facility] XR Chest Single viewon 03-13 1. Limited supine study. 2. Cardiomegaly with probable pulmonary venous congestion. 3. Hyperinflated lungs with chronic, ill-defined opacities in both lungs which are most likely areas of fibrosis. No definite lung consolidation. Report Dictated on Electronically Signed By: Bettye Ribera MD Electronically Signed Date/Time: 03/13/2025 9:18 AM EDT [facility] [employer] SYSTEM [facility] 1965 [id number] Exam Date/Time: 03/13/2025 09:06 Procedure: XR CHEST [...] Biapical pleural thickening is chronic. Bones: Unremarkable [facility] Bettye Ribera MD - 03/13/2025 Patient Name: JUN SNYDER : 1965 [id number] Exam Date/Time: 03/13/2025 09:06 Procedure: XR CHEST [...] Electronically Signed Date/Time: 03/13/2025 9:18 AM EDT [facility] Radiology Study observation (narrative) [facility] XR Chest Single viewOrdered By: Bettye Ribera on 03-13-2025 [facility] Work Phone: Absolute lymphocyte countOrd ered By: Jayesh Stubbs on 03-12-2025 Lymphocytes Auto (Unsp spec) [#/Vol] 1.12 10*3/uL 0.83-4.51 [facility] Absolute neutrophil countOrd ered By: Jayesh Stubbs on 03-12-2025 Neutrophils (Bld) [#/Vol] 4.3 10*3/uL 2.0-7.7 [facility] Anion gap in Serum or Plasma Ordered By: Jayesh Stubbs on 03-12-2025 Anion gap [Moles/Vol] 13 mmol/L 5-15 [facility] Automated lymphocyte count a s percentage of total leukocytesOrdered By: Jayesh Stubbs on 03-12-2025 Lymphocytes/100 WBC Auto (Unsp spec) 16.9 % Low 19-41 [facility] BUN/creatinine ratioOrdered By: Jayesh Stubbs on 03-12-2025 Urea nitrogen/Creatinine [Mass ratio] 11.8 mg/mg 10-20 [facility] Basophil percentageOrdered B y: Jayesh Stubbs on 03-12-2025 Basophils/100 WBC (Bld) 2.0 % High 0-1 [facility] Bilirubin, totalOrdered By: Jayesh Stubbs on 03-12-2025 Bilirubin [Mass/Vol] 0.62 mg/dL 0.00-1.30 [facility] CBC W/Diff, Automatedon 02-25 Anisocytosis Ql (Bld) 1+ Normal [facility] Comment on above: Order Comment: 413.2 Performed By: #### L 100.0100, L300.3900, L500.4050 #### [facility] [address] [place], [address] Carbon dioxide, total [Moles /volume] in Central venous bloodOrdered By: Jayesh Stubbs on 03-12-2025 CO2 [Moles/Vol] 27.8 mmol/L 21.0-32.0 [facility] Chloride assayOrdered By: George Dorado on 03-12-2025 Chloride [Moles/Vol] 98 mmol/L 98-108 [facility] Eosinophil percentageOrdered By: Jayesh Stubbs on 03-12-2025 Eosinophils/100 WBC (Bld) 2.3 % 0-5 [facility] Erythrocyte distribution wid th ratioOrdered By: Jayesh Stubbs on 03-12-2025 Erythrocyte distribution width (RBC) [Ratio] 21.6 % High 11.6-14.6 [facility] Erythrocyte distribution wid th standard deviationOrdered By: Jayesh Stubbs on 03-12-2025 Erythrocyte distribution width (RBC) [Ratio] 79.4 fl High 35.1-43.9 [facility] Glomerular filtration rate ( GFR) estimation/1.73 sq m using serum, plasma, or whole bOrdered By: Jayesh Stubbs on 03-12-2025 GFR/1.73 sq M.predicted among non-blacks MDRD (S/P/Bld) [Vol rate/Area] 14 mL/min/{1.73_m2} Low >60 [facility] Comment on above: mL/min/1.73m2 CKD-EP I Creatinine Equation (2020) Hematocrit Auto (Bld) [Volum e fraction]Ordered By: Jayesh Stubbs on 03-12-2025 Hematocrit (Bld) [Volume fraction] 28.7 % Low 40-54 [facility] Hemoglobin measurementOrdere d By: Jayesh Stubbs on 03-12-2025 Hemoglobin (Bld) [Mass/Vol] 8.7 g/dL Low 13.0-16.5 [facility] Immature granulocytes/100 WB C Auto (Bld)Ordered By: Jayesh Stubbs on 03-12-2025 Immature granulocytes/100 WBC (Bld) 0.300 % 0.0-0.9 [facility] Comment on above: IG% - Immature Granu locytes (promyelocytes, myelocytes and metamyelocytes) > 1% indicates that a LEFT SHIFT is Present. International normalized rat io (INR) calculationOrdered By: Jayesh Stubbs on 03-12-2025 INR Coag (Bld) [Relative time] 1.9 {INR} [facility] - Chemistry and C hemistry - challengeOrdered By: Jayesh Stubbs on 03-12-2025 AST [Catalytic activity/Vol] 47 U/L High <38 [facility] - Hematology and Cell countsOrdered By: Jayesh Stubbs on 03-12-2025 Anisocytosis Ql (Bld) 1+ [facility] MCV (mean corpuscular volume ) determinationOrdered By: Jayesh Stubbs on 03-12-2025 MCV (RBC) [Entitic vol] 100.3 fL High 80-94 [facility] Mean corpuscular hemoglobin (MCH) determinationOrdered By: Jayesh Stubbs on 03-12-2025 MCH (RBC) [Entitic mass] 30.4 pg 27.0-32.0 [facility] Mean corpuscular hemoglobin concentration (MCHC) determinationOrdered By: Jayesh Stubbs on 03-12-2025 MCHC (RBC) [Mass/Vol] 30.3 g/dL Low 32-36 [facility] Mean platelet volume determi nationOrdered By: Jayesh Stubbs on 03-12-2025 Platelet mean volume (Bld) [Entitic vol] 9.5 fL 6.2-12.0 [facility] Monocyte percentageOrdered B y: Jayesh Stubbs on 03-12-2025 Monocytes/100 WBC (Bld) 14.2 % High 0-10 [facility] Neutrophil percentageOrdered By: Jayesh Stubbs on 03-12-2025 Neutrophils/100 WBC (Bld) 64.3 % 47-70 [facility] Nucleated red blood cell per centageOrdered By: Jayesh Stubbs on 03-12-2025 Nucleated RBC/100 WBC (Bld) [Ratio] 0.3 % 0-5 [facility] Platelet countOrdered By: George Dorado on 03-12-2025 Platelets (Bld) [#/Vol] 404 10*3/uL 150-450 [facility] Potassium measurement (mass/ volume)Ordered By: Jayesh Stubbs on 03-12-2025 Potassium (Unsp spec) [Mass/Vol] 4.1 mmol/L 3.3-5.1 [facility] Prothrombin Time w/INRon INR Coag (PPP) [Relative time] 1.9 {INR} Normal [facility] Comment on above: Order Comment: 413.2 Performed By: #### L 100.0100, L300.3900, L500.4050 #### [facility] [address] [place], [address] PT Coag (PPP) [Time] 22.4 s High 11.7-14.9 [facility] Comment on above: Order Comment: 413.2 Performed By: #### L 100.0100, L300.3900, L500.4050 #### [facility] [address] [place], [address] Prothrombin timeOrdered By: Jayesh Stubbs on 03-12-2025 PT Coag (PPP) [Time] 22.4 s High 11.7-14.9 [facility] RBC Auto (Bld) [#/Vol]Ordere d By: Jayesh Stubbs on 03-12-2025 RBC (Bld) [#/Vol] 2.86 10*6/uL Low 4.6-6.2 [facility] Serum creatinine measurement (mass/volume)Ordered By: Jayesh Stubbs on 03-12-2025 Creatinine [Mass/Vol] 4.67 mg/dL High 0.70-1.20 [facility] Serum globulin measurementOr dered By: Jayesh Stubbs on 03-12-2025 Globulin (S) [Mass/Vol] 4.1 g/dL 2.2-4.2 [facility] Serum glucose measurement (m ass/volume)Ordered By: Jayesh Stubbs on 03-12-2025 Glucose [Mass/Vol] 102 mg/dL High 70-99 [facility] Serum or plasma alanine mayorga otransferase (ALT) measurementOrdered By: Jayesh Stubbs on 03-12-2025 ALT [Catalytic activity/Vol] 20 U/L <47 [facility] Serum or plasma albumin audrey urement (mass/volume)Ordered By: Jayesh Stubbs on 03-12-2025 Albumin [Mass/Vol] 3.0 g/dL Low 3.5-5.0 [facility] Serum or plasma albumin/glob ulin mass ratioOrdered By: Jayesh Stubbs on 03-12-2025 Albumin/Globulin [Mass ratio] 0.7 {ratio} Low 0.9-2.4 [facility] Serum or plasma alkaline jacob sphatase measurementOrdered By: Jayesh Stubbs on 03-12-2025 ALP [Catalytic activity/Vol] 171 U/L High 40-129 [facility] Serum or plasma calcium audrey urement (mass/volume)Ordered By: Jayesh Stubbs on 03-12-2025 Calcium [Mass/Vol] 9.9 mg/dL 7.6-11.0 [facility] Serum or plasma urea nitroge n measurement (mass/volume)Ordered By: Jayesh Stubbs on 03-12-2025 Urea nitrogen [Mass/Vol] 55 mg/dL High 4-19 [facility] Sodium levelOrdered By: George Stubbs on 03-12-2025 Sodium [Moles/Vol] 139 mmol/L 133-145 [facility] Total proteinOrdered By: Sonia Stubbs on 03-12-2025 Protein [Mass/Vol] 7.1 g/dL 5.9-8.4 [facility] White blood cell (WBC) count Ordered By: Jayesh Stubbs on 03-12-2025 WBC (Bld) [#/Vol] 6.6 10*3/uL 4.4-11.0 [facility] Potassiumon 03-09-2025 Potassium [Moles/Vol] 4.1 mmol/L Normal 3.3-5.1 [facility] Comment on above: Order Comment: 412.2 Performed By: #### L 100.0100, L300.3900, L500.4050 #### [facility] [address] [place], [address] Potassium measurement (mass/ volume)Ordered By: Jayesh Stubbs on 03-09-2025 Potassium (Unsp spec) [Mass/Vol] 4.1 mmol/L 3.3-5.1 [facility] 36on 03-08-2025 36 2nd attempt called and spoke to the Alyssa the Nurse for the patient at the facility he lives at. She states Sabino is the person who schedules the appointments and she is on vacation and wont be back till next Wednesday. I will try again next wednesday [facility] Progress Noteon 03-08-2025 Progress Note [facility] 36on 03-06-2025 36 Pt DC to [facility] [id number] 03-05-2025 [id number] [facility] [id number] Auth is now pending with [facility] for [facility]. Auth ID: [id number] . The insurance needs PT and OT notes- as PT note yesterday incomplete , they are both requested . [facility] [id number] Normal [facility] [place] [facility] [id number] Discharge med list transmitted to [facility] via [facility] per TCC request. Normal [facility] [place] [facility] [id number] Normal [facility] [place] [facility] [id number] [facility] APTTon 03-05-2025 aPTT Coag (Bld) [Time] 37.6 s High 20.0-30.5 [facility] Comment on above: Result Comment: ARPAN Kaplan COMMENTS:NOTE: The therapeutic time for Heparin anticoagulation, based on Xa activity inhibition, is an APTT of 46-80 seconds. Performed By: #### L AB325, [id number] ####Asp Net Programmer: DOMENICA JARA ([phone])[facility])[address] [place] [address] BASIC METABOLIC PANELon 06 Anion gap [Moles/Vol] 8 mmol/L Normal 3-13 [facility] Comment on above: Performed By: #### L AB15 ####[employer] Programmer: DOMENICA JARA ([phone])[facility])[address] [place] [address] Calcium [Mass/Vol] 9.7 mg/dL Normal 8.4-10.2 [facility] [place] [facility] Comment on above: Performed By: #### L AB15 ####[employer] Programmer: DOMENICA JARA ([phone])[facility] ([facility])[address] [place] [address] [place] Chloride [Moles/Vol] 102 mmol/L Normal 98-107 [facility] Comment on above: Performed By: #### L AB15 ####[employer] Programmer: DOMENICA JARA ([phone])[facility] ([facility])[address] [place] [address] [place] CO2 [Moles/Vol] 26 mmol/L Normal 22-29 [facility] Comment on above: Performed By: #### L AB15 ####[employer] Programmer: DOMENICA JARA ([phone])[facility] ([facility])[address] [place] [address] Creatinine [Mass/Vol] 3.10 mg/dL High 0.72-1.25 [facility] Comment on above: Performed By: #### L AB15 ####[employer] Programmer: DOMENICA JARA ([phone])[facility])[address] [place] [address] GLOMERULAR FILTRATION RATE ML/MIN/1.73 SQ M.PREDICTED 22.3 mL/min/1.73m*2 Low >60.0 [facility] [place] [facility] Comment on above: Result Comment: Calc ulation based on the Chronic Kidney Disease Epidemiology Collaboration (CKD-EPI) equation refit without adjustment for race Performed By: #### L AB15 ####[employer] Programmer: DOMENICA JARA ([phone])[facility])[address] [place] [address] Glucose [Mass/Vol] 68 mg/dL Low 74-100 [facility] Comment on above: Performed By: #### L AB15 ####[employer] Programmer: DOMENICA JARA ([phone])[facility])[address] [place] [address] Potassium [Moles/Vol] 5.9 mmol/L High 3.5-5.1 [facility] Comment on above: Result Comment: [facility] potassium values may be up to 0.5 mmol/L lower than serum values. Performed By: #### L AB15 ####Asp [employer] Programmer: DOMENICA JARA ([phone])[facility])[address] [place] [address] Sodium [Moles/Vol] 136 mmol/L Normal 136-145 [facility] Comment on above: Performed By: #### L AB15 ####[employer] Programmer: DOMENICA [id number])[facility])[address] [place] [address] [place] Urea nitrogen [Mass/Vol] 27 mg/dL High 9-23 [facility] Comment on above: Performed By: #### L AB15 ####[employer] Programmer: DOMENICA [phone])[facility])[address] [place] [address] Anion gap [Moles/Vol] 9 mmol/L Normal 3-13 [facility] Comment on above: Performed By: #### L AB15 ####Asp [employer] Programmer: DOMENICA JARA ([phone])[facility] ([facility])[address] [place] [address] Calcium [Mass/Vol] 9.7 mg/dL Normal 8.4-10.2 [facility] Comment on above: Performed By: #### L AB15 ####[employer] Programmer: DOMENICA JARA ([phone])[facility] ([facility])[address] [place] [address] Chloride [Moles/Vol] 102 mmol/L Normal 98-107 [facility] Comment on above: Performed By: #### L AB15 ####[employer] Programmer: DOMENICA JARA ([phone])[facility] ([facility])[address] [place] [address] CO2 [Moles/Vol] 25 mmol/L Normal 22-29 [facility] Comment on above: Performed By: #### L AB15 ####[employer] Programmer: DOMENICA JARA ([phone])[facility] ([facility])[address] [place] [address] Creatinine [Mass/Vol] 3.03 mg/dL High 0.72-1.25 [facility] Comment on above: Performed By: #### L AB15 ####Asp [employer] Programmer: DOMENICA JARA ([phone])[facility] ([facility])[address] [place] [address] GLOMERULAR FILTRATION RATE ML/MIN/1.73 SQ M.PREDICTED 22.9 mL/min/1.73m*2 Low >60.0 [facility] [facility] Comment on above: Result Comment: Calc ulation based on the Chronic Kidney Disease Epidemiology Collaboration (CKD-EPI) equation refit without adjustment for race Performed By: #### L AB15 ####Asp [employer] Programmer: DOMENICA JARA ([phone])[facility] ([facility])[address] [place] [address] Glucose [Mass/Vol] 77 mg/dL Normal 74-100 [facility] Comment on above: Performed By: #### L AB15 ####Asp [employer] Programmer: DOMENICA JARA ([phone])[facility])[address] [place] [address] Potassium [Moles/Vol] 6.6 mmol/L Critically high 3.5-5.1 [facility] Comment on above: Result Comment: Plas ma potassium values may be up to 0.5 mmol/L lower than serum values. Performed By: #### L AB15 ####Asp [employer] Programmer: DOMENICA JARA ([phone])[facility] ([facility])[address] [place] [address] Sodium [Moles/Vol] 136 mmol/L Normal 136-145 [facility] Comment on above: Performed By: #### L AB15 ####Asp [employer] Programmer: DOMENICA JARA ([phone])[facility] ([facility])[address] [place] [address] Urea nitrogen [Mass/Vol] 26 mg/dL High 9-23 [facility] Comment on above: Performed By: #### L AB15 ####Asp [employer] Programmer: DOMENICA JARA ([phone])[facility])[address] [place] [address] Basic metabolic 1998 panelon 03-05-2025 Anion gap [Moles/Vol] 8 mmol/L 3 - 13 mmol/L [facility] Calcium [Mass/Vol] 9.7 mg/dL 8.4 - 10. 2 mg/dL [facility] Chloride [Moles/Vol] 102 mmol/L 98 - 10 7 mmol/L [facility] CO2 [Moles/Vol] 26 mmol/L 22 - 29 mmol/L [facility] Creatinine [Mass/Vol] 3.1 mg/dL High 0.72 - 1.25 mg/dL [facility] GFR/1.73 sq M.predicted (S/P/Bld) [Vol rate/Area] 22.3 mL/min Low - PINF [facility] Glucose [Mass/Vol] 68 mg/dL Low 74 - 100 mg/dL [facility] Interpretation and review of laboratory results Abnormal [facility] Potassium [Moles/Vol] 5.9 mmol/L High 3.5 - 5.1 mmol/L [facility] Sodium [Moles/Vol] 136 mmol/L 136 - 145 mmol/L [facility] Urea nitrogen [Mass/Vol] 27 mg/dL High 9 - 23 mg/d L [facility] Anion gap [Moles/Vol] 9 mmol/L 3 - 13 mmol/L [facility] Calcium [Mass/Vol] 9.7 mg/dL 8.4 - 10. 2 mg/dL [facility] Chloride [Moles/Vol] 102 mmol/L 98 - 10 7 mmol/L [facility] CO2 [Moles/Vol] 25 mmol/L 22 - 29 mmol/L [facility] Creatinine [Mass/Vol] 3.03 mg/dL High 0.72 - 1.25 mg/dL [facility] GFR/1.73 sq M.predicted (S/P/Bld) [Vol rate/Area] 22.9 mL/min Low - PINF [facility] Glucose [Mass/Vol] 77 mg/dL 74 - 100 mg/dL [facility] Interpretation and review of laboratory results Abnormal [facility] Potassium [Moles/Vol] 6.6 mmol/L Critically high 3.5 - 5.1 mmol/L [facility] Sodium [Moles/Vol] 136 mmol/L 136 - 145 mmol/L [facility] Urea nitrogen [Mass/Vol] 26 mg/dL High 9 - 23 mg/d L [facility] CBC (HEMOGRAM)on 03-05-2025 Erythrocyte distribution width (RBC) [Ratio] 21.6 % High 11.5-15.0 [facility] Comment on above: Performed By: #### L AB294 ####Asp Net Programmer: DOMENICA JARA ([phone])[address] Hematocrit (Bld) [Volume fraction] 25.7 % Low 40.0-52.0 [facility] Comment on above: Performed By: #### L AB294 ####Asp [employer] Programmer: DOMENICA JARA ([phone])[place] [id number] [place] Hemoglobin (Bld) [Mass/Vol] 7.7 g/dL Low 13.0-18.0 [facility] Comment on above: Performed By: #### L AB294 ####Asp Net Programmer: DOMENICA JARA ([phone])[facility])[address] [place] [address] MCH (RBC) [Entitic mass] 29.7 pg Normal 26.0-34.0 [facility] Comment on above: Performed By: #### L AB294 ####Asp [employer] Programmer: DOMENICA JARA ([phone])[facility])[address] [place] [address] MCHC 30.0 % Low 30.5-36.0 [facility] [place] [facility] Comment on above: Performed By: #### L AB294 ####Asp [employer] Programmer: DOMENICA JARA ([phone])[facility] ([facility])[address] [place] [address] MCV (RBC) [Entitic vol] 99.2 fL High 77.0-99.0 [facility] Comment on above: Performed By: #### L AB294 ####Asp Net Programmer: DOMENICA JARA ([phone])[facility])[address] [place] [address] Platelet mean volume (Bld) [Entitic vol] 9.1 fL Normal 9.0-12.7 [facility] [facility] Comment on above: Performed By: #### L AB294 ####Asp [employer] Programmer: DOMENICA JARA ([phone])[facility] ([facility])[address] [place] [address] Platelets (Bld) [#/Vol] 303 10*3/uL Normal 140-440 [facility] Comment on above: Performed By: #### L AB294 ####Asp [employer] Programmer: DOMENICA JARA ([phone])[facility])[address] [place] [address] RBC (Bld) [#/Vol] 2.59 10*6/uL Low 4.40-5.90 [facility] Comment on above: Performed By: #### L AB294 ####[employer] Programmer: DOMENICA JARA ([phone])[facility] ([facility])[address] [place] [address] WBC (Bld) [#/Vol] 9.1 10*3/uL Normal 3.6-10.7 [facility] Comment on above: Performed By: #### L AB294 ####[employer] Programmer: DOMENICA JARA ([phone])[facility] ([facility])[address] [place] [address] CBC W/Diff, Automatedon 06-0 -2024 Absolute Neut Normal 2.0-7.7 [facility] Comment on above: Order Comment: 412.2 Result Comment: [facility] Performed By: #### L 300.3900 #### [facility] [address] [place], [address] HCT Normal 40-54 [facility] Comment on above: Order Comment: 412.2 Result Comment: [facility] Performed By: #### L 300.3900 #### [facility] [address] [place], [address] HGB Normal 13.0-16.5 [facility] Comment on above: Order Comment: 412.2 Result Comment: [facility] Performed By: #### L 300.3900 #### [facility] [address] [place], [address] MCH Normal 27.0-32.0 [facility] Comment on above: Order Comment: 412.2 Result Comment: [facility] Performed By: #### L 300.3900 #### [facility] [address] [place], [address] MCHC Normal 32-36 [facility] Comment on above: Order Comment: 412.2 Result Comment: [facility] Performed By: #### L 300.3900 #### [facility] [address] [place], [address] MCV Normal 80-94 [facility] Comment on above: Order Comment: 412.2 Result Comment: [facility] Performed By: #### L 300.3900 #### [facility] [address] [place], [address] NEUT% Normal 47-70 [facility] Comment on above: Order Comment: 412.2 Result Comment: [facility] Performed By: #### L 300.3900 #### [facility] [address] [place], [address] PLT Normal 150-450 [facility] Comment on above: Order Comment: 412.2 Result Comment: [facility] Performed By: #### L 300.3900 #### [facility] [address] [place], [address] RBC Normal 4.6-6.2 [facility] Comment on above: Order Comment: 412.2 Result Comment: [facility] Performed By: #### L 300.3900 #### [facility] [address] [place], [address] RDW CV Normal 11.6-14.6 [facility] Comment on above: Order Comment: 412.2 Result Comment: [facility] Performed By: #### L 300.3900 #### [facility] [address] [place], [address] RDW SD Normal 35.1-43.9 [facility] Comment on above: Order Comment: 412.2 Result Comment: [facility] Performed By: #### L 300.3900 #### [facility] [address] [place], [address] WBC Normal 4.4-11.0 [facility] Comment on above: Order Comment: 412.2 Result Comment: [facility] Performed By: #### L 300.3900 #### [facility] [address] [place], [place], [address] CBC panel Auto (Bld)on 03-05 Erythrocyte distribution width (RBC) [Ratio] 21.6 % High 11.5 - 15.0 % [facility] Hematocrit (Bld) [Volume fraction] 25.7 % Low 40.0 - 52.0 % [facility] Hemoglobin (Bld) [Mass/Vol] 7.7 g/dL Low 13.0 - 18.0 g/dL [facility] Interpretation and review of laboratory results Abnormal [facility] MCH (RBC) [Entitic mass] 29.7 pg 26. 0 - 34.0 pg [facility] MCHC (RBC) [Mass/Vol] 30 % Low 30.5 - 36.0 % [facility] MCV (RBC) [Entitic vol] 99.2 fL High 77.0 - 99.0 fL [facility] Platelet mean volume (Bld) [Entitic vol] 9.1 fL 9.0 - 12.7 fL [facility] Platelets (Bld) [#/Vol] 303 10*3/uL 140 - 440 10*3/uL [facility] RBC (Bld) [#/Vol] 2.59 10*6/uL Low 4.40 - 5.9 0 10*6/uL [facility] WBC (Bld) [#/Vol] 9.1 10*3/uL 3.6 - 10.7 10*3/uL [facility] Comprehensive Metabolic Prof ilon 03-05-2025 ALB Normal 3.5-5.0 [facility] Comment on above: Order Comment: 412.2 Result Comment: [facility] Performed By: #### L 300.3900 #### [facility] [address] [place], [address] ALK PHOS Normal 40-129 [facility] Comment on above: Order Comment: 412.2 Result Comment: [facility] Performed By: #### L 300.3900 #### [facility] [address] [place], [place], [address] ALT Normal <=46 [facility] Comment on above: Order Comment: 412.2 Result Comment: [facility] Performed By: #### L 300.3900 #### [facility] [address] [place], [address] AST Normal <=37 [facility] Comment on above: Order Comment: 412.2 Result Comment: [facility] Performed By: #### L 300.3900 #### [facility] [address] [place], [address] BUN Normal 4-19 [facility] Comment on above: Order Comment: 412.2 Result Comment: [facility] Performed By: #### L 300.3900 #### [facility] [address] [place], [address] BUN/CRE Normal 10-20 [facility] [facility] Comment on above: Order Comment: 412.2 Result Comment: [facility] Performed By: #### L 300.3900 #### [facility] [address] [place], [address] Calcium Normal 7.6-11.0 [facility] Comment on above: Order Comment: 412.2 Result Comment: [facility] Performed By: #### L 300.3900 #### [facility] [address] [place], [address] CL Normal 98-108 [facility] Comment on above: Order Comment: 412.2 Result Comment: [facility] Performed By: #### L 300.3900 #### [facility] [address] [place], [address] CO2 Normal 21.0-32.0 [facility] Comment on above: Order Comment: 412.2 Result Comment: [facility] Performed By: #### L 300.3900 #### [facility] [address] [place], [address] CREAT,SERUM Normal 0.70-1.20 [facility] Comment on above: Order Comment: 412.2 Result Comment: [facility] Performed By: #### L 300.3900 #### [facility] [address] [place], [address] eGFR Normal >60 [facility] Comment on above: Order Comment: 412.2 Result Comment: [facility] Performed By: #### L 300.3900 #### [facility] [address] [place], [address] GAP Normal 5-15 [facility] Comment on above: Order Comment: 412.2 Result Comment: [facility] Performed By: #### L 300.3900 #### [facility] [address] [place], [address] GLU Normal 70-99 [facility] Comment on above: Order Comment: 412.2 Result Comment: [facility] Performed By: #### L 300.3900 #### [facility] [address] [place], [address] Potassium Normal 3.3-5.1 [facility] Comment on above: Order Comment: 412.2 Result Comment: [facility] Performed By: #### L 300.3900 #### [facility] [address] [place], [address] T BILI Normal 0.00-1.30 [facility] Comment on above: Order Comment: 412.2 Result Comment: [facility] Performed By: #### L 300.3900 #### [facility] [address] [place], [address] T PROT Normal 5.9-8.4 [facility] Comment on above: Order Comment: 412.2 Result Comment: [facility] Performed By: #### L 300.3900 #### [facility] [address] [place], [address] Comprehensive Metabolic Profil Normal 133-145 [facility] Comment on above: Order Comment: 412.2 Result Comment: [facility] Performed By: #### L 300.2369 #### [facility] [place], [address] Laboratory - Chemistry and C hemistry - challengeon 03-05-2025 Glucose [Mass/Vol] 142 mg/dL High 70 - 100 mg/dL [facility] Glucose [Mass/Vol] 83 mg/dL 70 - 100 mg/dL [facility] Laboratory - Coagulationon 0 03-05-2025 PT Coag (Bld) [Time] 18.6 s High 9.0 - 12.0 s [facility] No Panel Informationon 03-05 Interpretation and review of laboratory results Abnormal [facility] Interpretation and review of laboratory results Normal [facility] Interpretation and review of laboratory results Abnormal [facility] PROTHROMBIN TIMEon INR Coag (PPP) [Relative time] 1.8 {INR} High 0.9-1.1 [facility] [place] [facility] Comment on above: Result Comment: Vaughn [...] Myocardial Infarction Performed By: #### Tameka AB325, [id number] ####Asp Net Programmer: DOMENICA JARA ([phone])[facility] ([facility])[address] [place] [address] [place] PT Coag (PPP) [Time] 18.6 s High 9.0-12.0 [facility] Comment on above: Performed By: #### Tameka AB325, [id number] ####[employer] Programmer: DMOENICA JARA ([phone])[facility] ([facility])[address] [place] [address] [place] PT Coag (Bld) [Time]on 03-05 INR Coag (PPP) [Relative time] 1.8 {INR} High 0.9 - 1.1 [facility] Progress Noteon 03-05-2025 Progress Note Normal [facility] Progress Note Normal [facility] Progress [facility] Normal [facility] Progress [facility] Normal [facility] Progress [facility] Normal [facility] Progress Note Normal [facility] Prothrombin Time w/INRon INR Normal [facility] Comment on above: Order Comment: 412.2 Result Comment: [facility] Performed By: #### L 300.3900 #### [facility] [address] [place], [address] PROTIME Normal 11.7-14.9 [facility] Comment on above: Order Comment: 412.2 Result Comment: [facility] Performed By: #### L 300.3900 #### [facility] [address] [place], [place], [address] aPTT Coag (Bld) [Time]on aPTT Coag (PPP) [Time] 37.6 s High 20.0 - 30.5 s [facility] 30on 03-04-2025 30 Normal [facility] [id number] 03-04-2025 [id number] Normal [facility] APTTon 03-04-2025 aPTT Coag (Bld) [Time] 52.2 s High 20.0-30.5 [facility] Comment on above: Result Comment: ARPAN R COMMENTS:NOTE: The therapeutic time for Heparin anticoagulation, based on Xa activity inhibition, is an APTT of 46-80 seconds. Performed By: #### L AB325, [id number] ####[employer] Programmer: DOMENICA JARA ([phone])[facility] ([address] BASIC METABOLIC PANELon Anion gap [Moles/Vol] 11 mmol/L Normal 3-13 [facility] Comment on above: Performed By: #### L AB15 ####[employer] Programmer: DOMENICA JARA ([phone])[facility] ([facility])[address] [place] [address] Calcium [Mass/Vol] 9.4 mg/dL Normal 8.4-10.2 [facility] Comment on above: Performed By: #### L AB15 ####[employer] Programmer: DOMENICA JARA ([phone])[facility] ([facility])[address] [place] [address] [place] Chloride [Moles/Vol] 103 mmol/L Normal 98-107 [facility] Comment on above: Performed By: #### L AB15 ####[employer] Programmer: DOMENICA JARA ([phone])[facility] ([facility])[address] [place] [address] CO2 [Moles/Vol] 27 mmol/L Normal 22-29 [facility] Comment on above: Performed By: #### L AB15 ####[employer] Programmer: DOMENICA JARA ([phone])[facility] ([facility])[address] [place] [address] Creatinine [Mass/Vol] 2.41 mg/dL High 0.72-1.25 [facility] Comment on above: Performed By: #### L AB15 ####[employer] Programmer: DOMENICA JARA ([phone])[facility])[address] [place] [address] [place] GLOMERULAR FILTRATION RATE ML/MIN/1.73 SQ M.PREDICTED 30.2 mL/min/1.73m*2 Low >60.0 [facility] Comment on above: Result Comment: Calc ulation based on the Chronic Kidney Disease Epidemiology Collaboration (CKD-EPI) equation refit without adjustment for race Performed By: #### L AB15 ####[employer] Programmer: DOMENICA JARA ([phone])[facility] ([facility])[address] [place] [address] [place] Glucose [Mass/Vol] 99 mg/dL Normal 74-100 [facility] Comment on above: Performed By: #### L AB15 ####[employer] Programmer: DOMENICA [phone])[facility] ([facility])[address] [place] [address] Potassium [Moles/Vol] 5.1 mmol/L Normal 3.5-5.1 [facility] Comment on above: Result Comment: [facility] potassium values may be up to 0.5 mmol/L lower than serum values. Performed By: #### L AB15 ####[employer] Programmer: DOMENICA JARA ([phone])[facility] ([facility])[address] [place] [address] Sodium [Moles/Vol] 141 mmol/L Normal 136-145 [facility] Comment on above: Performed By: #### L AB15 ####[employer] Programmer: DOMENICA JARA ([phone])[facility] ([facility])[address] [place] [address] Urea nitrogen [Mass/Vol] 18 mg/dL Normal 9-23 [facility] Comment on above: Performed By: #### L AB15 ####[employer] Programmer: DOMENICA JARA ([phone])[facility] ([facility])[address] [place] [address] Basic metabolic 1998 panelon 03-04-2025 Anion gap [Moles/Vol] 11 mmol/L 3 - 13 mmol/L [facility] Calcium [Mass/Vol] 9.4 mg/dL 8.4 - 10. 2 mg/dL [facility] Chloride [Moles/Vol] 103 mmol/L 98 - 10 7 mmol/L [facility] CO2 [Moles/Vol] 27 mmol/L 22 - 29 mmol/L [facility] Creatinine [Mass/Vol] 2.41 mg/dL High 0.72 - 1.25 mg/dL [facility] GFR/1.73 sq M.predicted (S/P/Bld) [Vol rate/Area] 30.2 mL/min Low - PINF [facility] Glucose [Mass/Vol] 99 mg/dL 74 - 100 mg/dL [facility] Interpretation and review of laboratory results Abnormal [facility] Potassium [Moles/Vol] 5.1 mmol/L 3.5 - 5.1 mmol/L [facility] Sodium [Moles/Vol] 141 mmol/L 136 - 145 mmol/L [facility] Urea nitrogen [Mass/Vol] 18 mg/dL 9 - 23 mg/d L [facility] CBC (HEMOGRAM)on 03-04-2025 Erythrocyte distribution width (RBC) [Ratio] 21.4 % High 11.5-15.0 [facility] Comment on above: Performed By: #### L AB294 ####Asp [employer] Programmer: DOMENICA JARA ([phone])[facility])[address] [place] [address] Hematocrit (Bld) [Volume fraction] 25.9 % Low 40.0-52.0 [facility] Comment on above: Performed By: #### L AB294 ####[employer] Programmer: DOMENICA JARA ([phone])[address] Hemoglobin (Bld) [Mass/Vol] 7.7 g/dL Low 13.0-18.0 [facility] Comment on above: Performed By: #### L AB294 ####[employer] Programmer: DOMENICA JARA ([phone])[address] MCH (RBC) [Entitic mass] 29.3 pg Normal 26.0-34.0 [facility] Comment on above: Performed By: #### L AB294 ####[employer] Programmer: DOMENICA JARA ([phone])[address] MCHC 29.7 % Low 30.5-36.0 [facility] Comment on above: Performed By: #### L AB294 ####[employer] Programmer: DOMENICA JARA ([id number])[address] MCV (RBC) [Entitic vol] 98.5 fL Normal 77.0-99.0 [facility] Comment on above: Performed By: #### L AB294 ####Asp [employer] Programmer: DOMENICA [id number])[facility] [address] Platelet mean volume (Bld) [Entitic vol] 9.3 fL Normal 9.0-12.7 [facility] Comment on above: Performed By: #### L AB294 ####[employer] Programmer: DOMENICA JARA ([phone])[facility])[address] [place] [address] Platelets (Bld) [#/Vol] 324 10*3/uL Normal 140-440 [facility] Comment on above: Performed By: #### L AB294 ####Asp [employer] Programmer: DOMENICA JARA ([phone])[facility])[address] [place] [address] RBC (Bld) [#/Vol] 2.63 10*6/uL Low 4.40-5.90 [facility] Comment on above: Performed By: #### L AB294 ####Asp [employer] Programmer: DOMENICA JARA ([id number])[facility] ([facility])[address] [place] [address] WBC (Bld) [#/Vol] 7.7 10*3/uL Normal 3.6-10.7 [facility] Comment on above: Performed By: #### L AB294 ####[employer] Programmer: DOMENICA JARA ([id number])[facility])[address] [place] [address] CBC panel Auto (Bld)on 03-04 Erythrocyte distribution width (RBC) [Ratio] 21.4 % High 11.5 - 15.0 % [facility] Hematocrit (Bld) [Volume fraction] 25.9 % Low 40.0 - 52.0 % [facility] Hemoglobin (Bld) [Mass/Vol] 7.7 g/dL Low 13.0 - 18.0 g/dL [facility] Interpretation and review of laboratory results Abnormal [facility] MCH (RBC) [Entitic mass] 29.3 pg 26. 0 - 34.0 pg [facility] MCHC (RBC) [Mass/Vol] 29.7 % Low 30.5 - 36.0 % [facility] MCV (RBC) [Entitic vol] 98.5 fL 77.0 - 99.0 fL [facility] Platelet mean volume (Bld) [Entitic vol] 9.3 fL 9.0 - 12.7 fL [facility] Platelets (Bld) [#/Vol] 324 10*3/uL 140 - 440 10*3/uL [facility] RBC (Bld) [#/Vol] 2.63 10*6/uL Low 4.40 - 5.9 0 10*6/uL [facility] WBC (Bld) [#/Vol] 7.7 10*3/uL 3.6 - 10.7 10*3/uL [facility] - Coagulationon 0 03-04-2025 PT Coag (Bld) [Time] 16.6 s High 9.0 - 12.0 s [facility] PT Coag (Bld) [Time] 15.5 s High 9.0 - 12.0 s [facility] No Panel Informationon 03-04 Interpretation and review of laboratory results Abnormal [facility] PROTHROMBIN TIMEon INR Coag (PPP) [Relative time] 1.6 {INR} High 0.9-1.1 [facility] Comment on above: Result Comment: Vaughn [...] Myocardial Infarction Performed By: #### L AB320 ####[employer] Programmer: DOMENICA JARA ([phone])[facility] ([facility])[address] [place] [address] PT Coag (PPP) [Time] 16.6 s High 9.0-12.0 [facility] Comment on above: Performed By: #### L AB320 ####Asp [employer] Programmer: DOMENICA JARA ([phone])[facility] ([facility])[address] [place] [address] INR Coag (PPP) [Relative time] 1.5 {INR} High 0.9-1.1 [facility] Comment on above: Result Comment: Vaughn [...] Myocardial Infarction Performed By: #### Tameka AB325, [id number] ####[employer] Programmer: DOMENICA JARA ([phone])[facility])[address] [place] [address] PT Coag (PPP) [Time] 15.5 s High 9.0-12.0 [facility] Comment on above: Performed By: #### Tameka AB325, [id number] ####[employer] Programmer: DOMENICA JARA ([phone])[facility] ([facility])[address] [place] [address] PT Coag (Bld) [Time]on 03-04 INR Coag (PPP) [Relative time] 1.6 {INR} High 0.9 - 1.1 [facility] Interpretation and review of laboratory results Abnormal [facility] INR Coag (PPP) [Relative time] 1.5 {INR} High 0.9 - 1.1 [facility] Progress Noteon 03-04-[address] [facility] Progress Note Normal [facility] Progress Note Normal [facility] aPTT Coag (Bld) [Time]on aPTT Coag (PPP) [Time] 52.2 s High 20.0 - 30.5 s [facility] 30on 03-03-2025 30 Normal [facility] 30 Normal [facility] 30 Normal [facility] [id number] 03-03-2025 [id number] Normal [facility] APTTon 03-03-2025 aPTT Coag (Bld) [Time] 66.2 s High 20.0-30.5 [facility] Comment on above: Result Comment: ARPAN Kaplan COMMENTS:NOTE: The therapeutic time for Heparin anticoagulation, based on Xa activity inhibition, is an APTT of 46-80 seconds. Performed By: #### L AB325 ####[employer] Programmer: DOMENICA JARA ([phone])[facility] ([facility])[address] [place] [address] aPTT Coag (Bld) [Time] 52.4 s High 20.0-30.5 [facility] Comment on above: Result Comment: ARPAN Kaplan COMMENTS:NOTE: The therapeutic time for Heparin anticoagulation, based on Xa activity inhibition, is an APTT of 46-80 seconds. Performed By: #### L AB325, [id number] ####[employer] Programmer: DOMENICA JARA ([phone])[facility])[address] [place] [address] BASIC METABOLIC PANELon 06-0 Anion gap [Moles/Vol] 10 mmol/L Normal 3-13 [facility] Comment on above: Performed By: #### L AB15 ####Asp [employer] Programmer: DOMENICA JAAR ([phone])[facility] ([facility])[address] [place] [address] Calcium [Mass/Vol] 9.2 mg/dL Normal 8.4-10.2 [facility] Comment on above: Performed By: #### L AB15 ####[employer] Programmer: DOMENICA JARA ([phone])[facility] ([facility])[address] [place] [address] [place] Chloride [Moles/Vol] 100 mmol/L Normal 98-107 [facility] Comment on above: Performed By: #### L AB15 ####Asp Net Programmer: DOMENICA JARA ([phone])[facility] ([facility])[address] [place] [address] CO2 [Moles/Vol] 29 mmol/L Normal 22-29 [facility] Comment on above: Performed By: #### L AB15 ####[employer] Net Programmer: DOMENICA JARA ([phone])[facility] ([facility])[address] [place] [address] Creatinine [Mass/Vol] 1.92 mg/dL High 0.72-1.25 [facility] Comment on above: Performed By: #### L AB15 ####[employer] Programmer: DOMENICA JARA ([phone])[facility])[address] [place] [address] [place] GLOMERULAR FILTRATION RATE ML/MIN/1.73 SQ M.PREDICTED 39.6 mL/min/1.73m*2 Low >60.0 [facility] Comment on above: Result Comment: Calc ulation based on the Chronic Kidney Disease Epidemiology Collaboration (CKD-EPI) equation refit without adjustment for race Performed By: #### L AB15 ####[employer] Programmer: DOMENICA JARA ([phone])[facility])[address] [place] [address] [place] Glucose [Mass/Vol] 71 mg/dL Low 74-100 [facility] Comment on above: Performed By: #### L AB15 ####[employer] Programmer: DOMENICA JARA ([phone])[facility])[address] [place] [address] Potassium [Moles/Vol] 4.8 mmol/L Normal 3.5-5.1 [facility] Comment on above: Result Comment: [facility] potassium values may be up to 0.5 mmol/L lower than serum values. Performed By: #### L AB15 ####[employer] Programmer: DOMENICA JARA ([phone])[facility] ([facility])[address] [place] [address] [place] Sodium [Moles/Vol] 139 mmol/L Normal 136-145 [facility] Comment on above: Performed By: #### L AB15 ####Asp [employer] Programmer: DOMENICA JARA ([phone])[facility] ([facility])[address] [place] [address] [place] Urea nitrogen [Mass/Vol] 14 mg/dL Normal 9-23 [facility] Comment on above: Performed By: #### L AB15 ####Asp [employer] Programmer: DOMENICA JARA ([phone])[facility] ([facility])[address] [place] [address] Anion gap [Moles/Vol] 11 mmol/L Normal 3-13 [facility] Comment on above: Performed By: #### L AB15 ####Asp [employer] Programmer: DOMENICA JARA ([phone])[facility] ([facility])[address] [place] [address] Calcium [Mass/Vol] 9.8 mg/dL Normal 8.4-10.2 [facility] Comment on above: Performed By: #### L AB15 ####[employer] Programmer: DOMENICA JARA ([phone])[facility] ([facility])[address] [place] [address] Chloride [Moles/Vol] 101 mmol/L Normal 98-107 [facility] Comment on above: Performed By: #### L AB15 ####Asp [employer] Programmer: DOMENICA JARA ([phone])[facility] ([facility])[address] [place] [address] CO2 [Moles/Vol] 28 mmol/L Normal 22-29 [facility] Comment on above: Performed By: #### L AB15 ####Asp [employer] Programmer: DOMENICA JARA ([phone])[facility] ([facility])[address] [place] [address] Creatinine [Mass/Vol] 3.21 mg/dL High 0.72-1.25 [facility] Comment on above: Performed By: #### L AB15 ####[employer] Programmer: DOMENICA JARA ([phone])[facility] ([facility])[address] [place] [address] [place] GLOMERULAR FILTRATION RATE ML/MIN/1.73 SQ M.PREDICTED 21.4 mL/min/1.73m*2 Low >60.0 [facility] Comment on above: Result Comment: Calc ulation based on the Chronic Kidney Disease Epidemiology Collaboration (CKD-EPI) equation refit without adjustment for race Performed By: #### L AB15 ####[employer] Programmer: DOMENICA JARA ([phone])[facility] ([facility])[address] [place] [address] Glucose [Mass/Vol] 93 mg/dL Normal 74-100 [facility] Comment on above: Performed By: #### L AB15 ####[employer] Programmer: DOMENICA AJRA ([phone])[facility] ([facility])[address] [place] [address] Potassium [Moles/Vol] 6.2 mmol/L Critically high 3.5-5.1 [facility] Comment on above: Result Comment: [facility] potassium values may be up to 0.5 mmol/L lower than serum values. Performed By: #### L AB15 ####Asp [employer] Programmer: DOMENICA JARA ([phone])[facility] ([facility])[address] [place] [address] Sodium [Moles/Vol] 140 mmol/L Normal 136-145 [facility] Comment on above: Performed By: #### L AB15 ####Asp Net Programmer: DOMENICA JARA ([phone])[facility] ([facility])[address] [place] [address] Urea nitrogen [Mass/Vol] 26 mg/dL High 9-23 [facility] Comment on above: Performed By: #### L AB15 ####[employer] Programmer: DOMENICA JARA ([phone])[facility] ([facility])[address] [place] [address] Basic metabolic 1998 panelOr dered By: Piedad Alvarado on 03-03-2025 Anion gap [Moles/Vol] 10 mmol/L 3 - 13 mmol/L [facility] Calcium [Mass/Vol] 9.2 mg/dL 8.4 - 10. 2 mg/dL [facility] Chloride [Moles/Vol] 100 mmol/L 98 - 10 7 mmol/L [facility] CO2 [Moles/Vol] 29 mmol/L 22 - 29 mmol/L [facility] Creatinine [Mass/Vol] 1.92 mg/dL High 0.72 - 1.25 mg/dL [facility] GFR/1.73 sq M.predicted (S/P/Bld) [Vol rate/Area] 39.6 mL/min Low - PINF [facility] Glucose [Mass/Vol] 71 mg/dL Low 74 - 100 mg/dL [facility] Interpretation and review of laboratory results Abnormal [facility] Potassium [Moles/Vol] 4.8 mmol/L 3.5 - 5.1 mmol/L [facility] Sodium [Moles/Vol] 139 mmol/L 136 - 145 mmol/L [facility] Urea nitrogen [Mass/Vol] 14 mg/dL 9 - 23 mg/d L [facility] Basic metabolic 1998 panelOr dered By: Jenni Romano on 03-03-2025 Anion gap [Moles/Vol] 11 mmol/L 3 - 13 mmol/L [facility] Calcium [Mass/Vol] 9.8 mg/dL 8.4 - 10. 2 mg/dL [facility] Chloride [Moles/Vol] 101 mmol/L 98 - 10 7 mmol/L [facility] CO2 [Moles/Vol] 28 mmol/L 22 - 29 mmol/L [facility] Creatinine [Mass/Vol] 3.21 mg/dL High 0.72 - 1.25 mg/dL [facility] GFR/1.73 sq M.predicted (S/P/Bld) [Vol rate/Area] 21.4 mL/min Low - PINF [facility] Glucose [Mass/Vol] 93 mg/dL 74 - 100 mg/dL [facility] Interpretation and review of laboratory results Abnormal [facility] Potassium [Moles/Vol] 6.2 mmol/L Critically high 3.5 - 5.1 mmol/L [facility] Sodium [Moles/Vol] 140 mmol/L 136 - 145 mmol/L [facility] Urea nitrogen [Mass/Vol] 26 mg/dL High 9 - 23 mg/d L [facility] CBC (HEMOGRAM)on 03-03-2025 Erythrocyte distribution width (RBC) [Ratio] 20.9 % High 11.5-15.0 [facility] Comment on above: Performed By: #### L [id number] ####Asp Net Programmer: DOMENICA JARA ([phone])[facility] ([address] Hematocrit (Bld) [Volume fraction] 27.8 % Low 40.0-52.0 [facility] Comment on above: Performed By: #### L [id number] ####Asp Net Programmer: DOMENICA JARA ([phone])[facility])[address] [place] [address] Hemoglobin (Bld) [Mass/Vol] 8.3 g/dL Low 13.0-18.0 [facility] Comment on above: Performed By: #### L [id number] ####Asp Net Programmer: DOMENICA JARA ([phone])[facility] ([facility])[address] [place] [address] IPF 2 Normal [facility] Comment on above: Performed By: #### L [id number] ####Asp Net Programmer: DOMENICA JARA ([phone])[facility])[address] [place] [address] MCH (RBC) [Entitic mass] 29.5 pg Normal 26.0-34.0 [facility] Comment on above: Performed By: #### L [id number] ####Asp Net Programmer: DOMENICA JARA ([phone])[facility] ([facility])[address] [place] [address] MCHC 29.9 % Low 30.5-36.0 [facility] Comment on above: Performed By: #### L [id number] ####Asp Net Programmer: DOMENICA JARA ([phone])[facility])[address] [place] [address] MCV (RBC) [Entitic vol] 98.9 fL Normal 77.0-99.0 [facility] Comment on above: Performed By: #### L [id number] ####Asp Net Programmer: DOMENICA JARA ([phone])[facility])[address] [place] [address] Platelet mean volume (Bld) [Entitic vol] 9.1 fL Normal 9.0-12.7 [facility] Comment on above: Performed By: #### L [id number] ####Asp Net Programmer: ODMENICA JARA ([phone])[facility])[address] [place] [address] Platelets (Bld) [#/Vol] 397 10*3/uL Normal 140-440 [facility] Comment on above: Performed By: #### L [id number] ####Asp Net Programmer: DOMENICA JARA ([phone])[address] RBC (Bld) [#/Vol] 2.81 10*6/uL Low 4.40-5.90 [facility] Comment on above: Performed By: #### L [id number] ####Asp Net Programmer: DOMENICA JARA ([phone])[address] WBC (Bld) [#/Vol] 8.9 10*3/uL Normal 3.6-10.7 [facility] Comment on above: Performed By: #### L [id number] ####Asp Net Programmer: DOMENICA JARA ([phone])[facility])[address] [place] [address] CBC panel Auto (Bld)Ordered By: Anu Graham on 03-03-2025 Erythrocyte distribution width (RBC) [Ratio] 20.9 % High 11.5 - 15.0 % [facility] Hematocrit (Bld) [Volume fraction] 27.8 % Low 40.0 - 52.0 % [facility] Hemoglobin (Bld) [Mass/Vol] 8.3 g/dL Low 13.0 - 18.0 g/dL [facility] Interpretation and review of laboratory results Abnormal [facility] IPF 2 [facility] MCH (RBC) [Entitic mass] 29.5 pg 26. 0 - 34.0 pg [facility] MCHC (RBC) [Mass/Vol] 29.9 % Low 30.5 - 36.0 % [facility] MCV (RBC) [Entitic vol] 98.9 fL 77.0 - 99.0 fL [facility] Platelet mean volume (Bld) [Entitic vol] 9.1 fL 9.0 - 12.7 fL [facility] Platelets (Bld) [#/Vol] 397 10*3/uL 140 - 440 10*3/uL [facility] RBC (Bld) [#/Vol] 2.81 10*6/uL Low 4.40 - 5.9 0 10*6/uL [facility] WBC (Bld) [#/Vol] 8.9 10*3/uL 3.6 - 10.7 10*3/uL [facility] Laboratory - Coagulationon 0 03-03-2025 PT Coag (Bld) [Time] 16.2 s High 9.0 - 12.0 s [facility] No Panel Informationon 03-03 Interpretation and review of laboratory results Abnormal [facility] Nursing Noteon 03-03-2025 Nursing Note Normal [facility] Nursing Note In patient's chart, d/t patient being on his call light excessively and finally telling me he wants something for pain. Please see eMAR for administration Normal [facility] PROTHROMBIN TIMEon INR Coag (PPP) [Relative time] 1.6 {INR} High 0.9-1.1 [facility] Comment on above: Result Comment: Vaughn [...] Myocardial Infarction Performed By: #### Tameka [id number], [id number] ####Asp Net Programmer: DOMENICA JARA ([id number])[facility] ([facility])[address] [place] [address] PT Coag (PPP) [Time] 16.2 s High 9.0-12.0 [facility] Comment on above: Performed By: #### Tameka AB325, [id number] ####Asp Net Programmer: DOMENICA JARA ([phone])[facility] ([facility])[address] [place] [address] PT Coag (Bld) [Time]on 03-03 INR Coag (PPP) [Relative time] 1.6 {INR} High 0.9 - 1.1 [facility] Progress Noteon 03-03-2025 Progress Note Normal [facility] Progress Note Normal [facility] Progress Note Normal [facility] aPTT Coag (Bld) [Time]on aPTT Coag (PPP) [Time] 66.2 s High 20.0 - 30.5 s [facility] Interpretation and review of laboratory results Abnormal [facility] aPTT Coag (PPP) [Time] 52.4 s High 20.0 - 30.5 s [facility] 30on 03-02-2025 30 Switch to augmentin 500mg q24 (to be taken after HD on HD days) until 03/10/25. Team aware of discharge plan Waiting for INR to be in therapeutic range ID will sign off Please re consult if needed Hussain Quintana MD 03/02/2025 12:43 PM Normal [facility] 30 Normal [facility] [id number] 03-02-2025 [id number] Normal [facility] APTTon 03-02-2025 aPTT Coag (Bld) [Time] 68.9 s High 20.0-30.5 [facility] Comment on above: Result Comment: ARPAN Kaplan COMMENTS:NOTE: The therapeutic time for Heparin anticoagulation, based on Xa activity inhibition, is an APTT of 46-80 seconds. Performed By: #### L AB325 ####Asp Net Programmer: DOMENICA JARA ([phone])[facility] ([facility] aPTT Coag (Bld) [Time] 44.7 s High 20.0-30.5 [facility] Comment on above: Result Comment: ARPAN Kaplan COMMENTS:NOTE: The therapeutic time for Heparin anticoagulation, based on Xa activity inhibition, is an APTT of 46-80 seconds. Performed By: #### L AB325 ####Asp Net Programmer: DOMENICA JARA ([phone])[facility] ([facility])[address] [place] [address] [place] aPTT Coag (Bld) [Time] 56.5 s High 20.0-30.5 [facility] Comment on above: Result Comment: ARPAN Kaplan COMMENTS:NOTE: The therapeutic time for Heparin anticoagulation, based on Xa activity inhibition, is an APTT of 46-80 seconds. Performed By: #### L AB325 ####Asp Net Programmer: DOMENICA JARA ([id number])[facility] ([facility])[address] [place] [address] aPTT Coag (Bld) [Time] 44.7 s High 20.0-30.5 [facility] Comment on above: Result Comment: ARPAN Kaplan COMMENTS:NOTE: The therapeutic time for Heparin anticoagulation, based on Xa activity inhibition, is an APTT of 46-80 seconds. Performed By: #### L AB320, [id number] ####Asp Net Programmer: DOMENICA JARA ([phone])[facility] ([facility])[address] [place] [address] BASIC METABOLIC PANELon 06-0 Anion gap [Moles/Vol] 11 mmol/L Normal 3-13 [facility] Comment on above: Performed By: #### L AB15 ####Asp Net Programmer: DOMENICA JARA ([phone])[facility])[address] [place] [address] Calcium [Mass/Vol] 9.2 mg/dL Normal 8.4-10.2 [facility] Comment on above: Performed By: #### L AB15 ####Asp Net Programmer: DOMENICA JARA ([id number])[facility])[address] [place] [address] [place] Chloride [Moles/Vol] 102 mmol/L Normal 98-107 [facility] Comment on above: Performed By: #### L AB15 ####Asp Net Programmer: DOMENICA JARA ([phone])[facility] ([facility])[address] [place] [address] CO2 [Moles/Vol] 26 mmol/L Normal 22-29 [facility] Comment on above: Performed By: #### L AB15 ####Asp Net Programmer: DOMENICA JARA ([phone])[facility] ([facility])[address] [place] [address] Creatinine [Mass/Vol] 2.53 mg/dL High 0.72-1.25 [facility] Comment on above: Performed By: #### L AB15 ####Asp Net Programmer: DOMENICA JARA ([phone])[facility] ([facility])[address] [place] [address] [place] GLOMERULAR FILTRATION RATE ML/MIN/1.73 SQ M.PREDICTED 28.5 mL/min/1.73m*2 Low >60.0 [facility] Comment on above: Result Comment: Calc ulation based on the Chronic Kidney Disease Epidemiology Collaboration (CKD-EPI) equation refit without adjustment for race Performed By: #### L AB15 ####Asp Net Programmer: DOMENICA JARA ([phone])[facility] ([facility])[address] [place] [address] [place] Glucose [Mass/Vol] 107 mg/dL High 74-100 [facility] Comment on above: Performed By: #### L AB15 ####Asp Net Programmer: DOMENICA JARA ([id number])[facility])[address] [place] [address] Potassium [Moles/Vol] 4.6 mmol/L Normal 3.5-5.1 [facility] Comment on above: Result Comment: [facility] potassium values may be up to 0.5 mmol/L lower than serum values. Performed By: #### L AB15 ####Asp Net Programmer: DOMENICA JARA ([phone])[facility] ([facility])[address] [place] [address] [place] Sodium [Moles/Vol] 139 mmol/L Normal 136-145 [facility] Comment on above: Performed By: #### L AB15 ####Asp Net Programmer: DOMENICA JARA ([phone])[facility] ([facility])[address] [place] [address] [place] Urea nitrogen [Mass/Vol] 16 mg/dL Normal 9-23 [facility] Comment on above: Performed By: #### L AB15 ####Asp Net Programmer: DOMENICA JARA ([id number])[facility])[address] [place] [address] Basic metabolic 1998 panelon 03-02-2025 Anion gap [Moles/Vol] 11 mmol/L 3 - 13 mmol/L [facility] Calcium [Mass/Vol] 9.2 mg/dL 8.4 - 10. 2 mg/dL [facility] Chloride [Moles/Vol] 102 mmol/L 98 - 10 7 mmol/L [facility] CO2 [Moles/Vol] 26 mmol/L 22 - 29 mmol/L [facility] Creatinine [Mass/Vol] 2.53 mg/dL High 0.72 - 1.25 mg/dL [facility] GFR/1.73 sq M.predicted (S/P/Bld) [Vol rate/Area] 28.5 mL/min Low - PINF [facility] Glucose [Mass/Vol] 107 mg/dL High 74 - 100 mg/dL [facility] Interpretation and review of laboratory results Abnormal [facility] Potassium [Moles/Vol] 4.6 mmol/L 3.5 - 5.1 mmol/L [facility] Sodium [Moles/Vol] 139 mmol/L 136 - 145 mmol/L [facility] Urea nitrogen [Mass/Vol] 16 mg/dL 9 - 23 mg/d L [facility] CBC (HEMOGRAM)on 03-02-2025 Erythrocyte distribution width (RBC) [Ratio] 20.1 % High 11.5-15.0 [facility] Comment on above: Performed By: #### L [id number] ####Asp Net Programmer: DOMENICA JARA ([phone])[facility] ([facility])[address] [place] [address] Hematocrit (Bld) [Volume fraction] 25.4 % Low 40.0-52.0 [facility] Comment on above: Performed By: #### L [id number] ####Asp Net Programmer: DOMENICA JARA ([phone])[facility])[address] [place] [address] Hemoglobin (Bld) [Mass/Vol] 7.7 g/dL Low 13.0-18.0 [facility] Comment on above: Performed By: #### L [id number] ####Asp Net Programmer: DOMENICA JARA ([id number])[facility])[address] [place] [address] IPF 2 Normal [facility] Comment on above: Performed By: #### L [id number] ####Asp Net Programmer: DOMENICA JARA ([phone])[facility])[address] [place] [address] MCH (RBC) [Entitic mass] 29.7 pg Normal 26.0-34.0 [facility] Comment on above: Performed By: #### L [id number] ####Asp Net Programmer: DOMENICA JARA ([phone])[facility])[address] [place] [address] MCHC 30.3 % Low 30.5-36.0 [facility] Comment on above: Performed By: #### L [id number] ####Asp Net Programmer: DOMENICA JARA ([phone])[facility])[address] [place] [address] MCV (RBC) [Entitic vol] 98.1 fL Normal 77.0-99.0 [facility] Comment on above: Performed By: #### L [id number] ####Asp Net Programmer: DOMENICA JARA ([phone])[facility])[address] [place] [address] Platelet mean volume (Bld) [Entitic vol] 9.0 fL Normal 9.0-12.7 [facility] Comment on above: Performed By: #### L [id number] ####Asp Net Programmer: DOMENICA JARA ([phone])[facility])[address] [place] [address] Platelets (Bld) [#/Vol] 354 10*3/uL Normal 140-440 [facility] Comment on above: Performed By: #### L [id number] ####Asp Net Programmer: DOMENICA JARA ([phone])[facility])[address] [place] [address] RBC (Bld) [#/Vol] 2.59 10*6/uL Low 4.40-5.90 [facility] Comment on above: Performed By: #### L [id number] ####Asp Net Programmer: DOMENICA JARA ([phone])[facility] ([facility])[address] [place] [address] WBC (Bld) [#/Vol] 7.4 10*3/uL Normal 3.6-10.7 [facility] Comment on above: Performed By: #### L [id number] ####Asp Net Programmer: DOMENICA JARA ([phone])[facility] ([facility])[address] [place] [address] CBC panel Auto (Bld)Ordered By: Callie Steele on 03-02-2025 Erythrocyte distribution width (RBC) [Ratio] 20.1 % High 11.5 - 15.0 % [facility] Hematocrit (Bld) [Volume fraction] 25.4 % Low 40.0 - 52.0 % [facility] Hemoglobin (Bld) [Mass/Vol] 7.7 g/dL Low 13.0 - 18.0 g/dL [facility] Interpretation and review of laboratory results Abnormal [facility] IPF 2 [facility] MCH (RBC) [Entitic mass] 29.7 pg 26. 0 - 34.0 pg [facility] MCHC (RBC) [Mass/Vol] 30.3 % Low 30.5 - 36.0 % [facility] MCV (RBC) [Entitic vol] 98.1 fL 77.0 - 99.0 fL [facility] Platelet mean volume (Bld) [Entitic vol] 9 fL 9.0 - 12.7 fL [facility] Platelets (Bld) [#/Vol] 354 10*3/uL 140 - 440 10*3/uL [facility] RBC (Bld) [#/Vol] 2.59 10*6/uL Low 4.40 - 5.9 0 10*6/uL [facility] WBC (Bld) [#/Vol] 7.4 10*3/uL 3.6 - 10.7 10*3/uL [facility] Laboratory - Coagulationon 0 03-02-2025 PT Coag (Bld) [Time] 14.7 s High 9.0 - 12.0 s [facility] No Panel Informationon 03-02 Interpretation and review of laboratory results Abnormal [facility] PROTHROMBIN TIMEon INR Coag (PPP) [Relative time] 1.4 {INR} High 0.9-1.1 [facility] Comment on above: Result Comment: Vaughn [...] Myocardial Infarction Performed By: #### Tameka [id number], [id number] ####Asp Net Programmer: DOMENICA JARA ([phone])[address] PT Coag (PPP) [Time] 14.7 s High 9.0-12.0 [facility] Comment on above: Performed By: #### Tameka AB320, [id number] ####Asp Net Programmer: DOMENICA JARA ([phone])[address] PT Coag (Bld) [Time]on 03-02 INR Coag (PPP) [Relative time] 1.4 {INR} High 0.9 - 1.1 [facility] Progress Noteon 03-02-2025 Progress Note Normal [facility] Progress Note Normal [facility] Progress Note Normal [facility] Progress Note Normal [facility] aPTT Coag (Bld) [Time]on aPTT Coag (PPP) [Time] 68.9 s High 20.0 - 30.5 s [facility] Interpretation and review of laboratory results Abnormal [facility] aPTT Coag (PPP) [Time] 44.7 s High 20.0 - 30.5 s [facility] Interpretation and review of laboratory results Abnormal [facility] aPTT Coag (PPP) [Time] 56.5 s High 20.0 - 30.5 s [facility] Interpretation and review of laboratory results Abnormal [facility] aPTT Coag (PPP) [Time] 44.7 s High 20.0 - 30.5 s [facility] 30on 03-01-2025 30 Normal [facility] [id number] 03-01-2025 [id number] Discharge med list and updated notes transmitted to [facility] via [employer] per TCC request. Normal [facility] [id number] Normal [facility] APTTon 03-01-2025 aPTT Coag (Bld) [Time] 51.3 s High 20.0-30.5 [facility] Comment on above: Result Comment: ARPAN Kaplan COMMENTS:NOTE: The therapeutic time for Heparin anticoagulation, based on Xa activity inhibition, is an APTT of 46-80 seconds. Performed By: #### L AB320, [id number] ####Asp Net Programmer: DOMENICA JARA ([phone])[facility])[address] [place] [address] BASIC METABOLIC PANELon 06-0 Anion gap [Moles/Vol] 13 mmol/L Normal 3-13 [facility] Comment on above: Performed By: #### L AB15 ####Asp Net Programmer: DOMENICA JARA ([phone])[facility] ([facility])[address] [place] [address] [place] Calcium [Mass/Vol] 9.6 mg/dL Normal 8.4-10.2 [facility] Comment on above: Performed By: #### L AB15 ####Asp Net Programmer: DOMENICA JARA ([phone])[facility])[address] [place] [address] Chloride [Moles/Vol] 102 mmol/L Normal 98-107 [facility] Comment on above: Performed By: #### L AB15 ####Asp Net Programmer: DOMENICA JARA ([phone])[facility] ([facility])[address] [place] [address] CO2 [Moles/Vol] 23 mmol/L Normal 22-29 [facility] Comment on above: Performed By: #### L AB15 ####Asp Net Programmer: DOMENICA JARA ([phone])[facility])[address] [place] [address] Creatinine [Mass/Vol] 3.73 mg/dL High 0.72-1.25 [facility] Comment on above: Performed By: #### L AB15 ####Asp Net Programmer: DOMENICA JARA ([phone])[facility])[address] [place] [address] GLOMERULAR FILTRATION RATE ML/MIN/1.73 SQ M.PREDICTED 17.9 mL/min/1.73m*2 Low >60.0 [facility] Comment on above: Result Comment: Calc ulation based on the Chronic Kidney Disease Epidemiology Collaboration (CKD-EPI) equation refit without adjustment for race Performed By: #### L AB15 ####Asp Net Programmer: DOMENICA JARA ([phone])[facility])[address] [place] [address] Glucose [Mass/Vol] 87 mg/dL Normal 74-100 [facility] Comment on above: Performed By: #### L AB15 ####Asp Net Programmer: DOMENICA JARA ([id number])[facility])[address] [place] [address] Potassium [Moles/Vol] 5.8 mmol/L High 3.5-5.1 [facility] Comment on above: Result Comment: [facility] potassium values may be up to 0.5 mmol/L lower than serum values. Performed By: #### L AB15 ####Asp Net Programmer: DOMENICA JARA ([phone])[facility])[address] [place] [address] Sodium [Moles/Vol] 138 mmol/L Normal 136-145 [facility] Comment on above: Performed By: #### L AB15 ####Asp Net Programmer: DOMENICA JARA ([phone])[facility])[address] [place] [address] Urea nitrogen [Mass/Vol] 28 mg/dL High 9-23 [facility] Comment on above: Performed By: #### L AB15 ####Asp Net Programmer: DOMENICA JARA ([phone])[facility] ([facility])[address] [place] [address] Basic metabolic 1998 panelon 03-01-2025 Anion gap [Moles/Vol] 13 mmol/L 3 - 13 mmol/L [facility] Calcium [Mass/Vol] 9.6 mg/dL 8.4 - 10. 2 mg/dL [facility] Chloride [Moles/Vol] 102 mmol/L 98 - 10 7 mmol/L [facility] CO2 [Moles/Vol] 23 mmol/L 22 - 29 mmol/L [facility] Creatinine [Mass/Vol] 3.73 mg/dL High 0.72 - 1.25 mg/dL [facility] GFR/1.73 sq M.predicted (S/P/Bld) [Vol rate/Area] 17.9 mL/min Low - PINF [facility] Glucose [Mass/Vol] 87 mg/dL 74 - 100 mg/dL [facility] Interpretation and review of laboratory results Abnormal [facility] Potassium [Moles/Vol] 5.8 mmol/L High 3.5 - 5.1 mmol/L [facility] Sodium [Moles/Vol] 138 mmol/L 136 - 145 mmol/L [facility] Urea nitrogen [Mass/Vol] 28 mg/dL High 9 - 23 mg/d L [facility] CBC (HEMOGRAM)on 03-01-2025 Erythrocyte distribution width (RBC) [Ratio] 19.7 % High 11.5-15.0 [facility] Comment on above: Performed By: #### L [id number] ####Asp Net Programmer: DOMENICA JARA ([phone])[facility] ([facility])[address] [place] [address] Hematocrit (Bld) [Volume fraction] 26.9 % Low 40.0-52.0 [facility] Comment on above: Performed By: #### L AB294 ####Asp Net Programmer: DOMENICA JARA ([phone])[facility])[address] [place] [address] Hemoglobin (Bld) [Mass/Vol] 8.0 g/dL Low 13.0-18.0 [facility] Comment on above: Performed By: #### L [id number] ####Asp Net Programmer: DOMENICA JARA ([id number])[facility] ([facility])[address] [place] [address] MCH (RBC) [Entitic mass] 28.8 pg Normal 26.0-34.0 [facility] Comment on above: Performed By: #### L [id number] ####Asp Net Programmer: DOMENICA JARA ([phone])[facility])[address] [place] [address] MCHC 29.7 % Low 30.5-36.0 [facility] Comment on above: Performed By: #### L [id number] ####Asp Net Programmer: DOMENICA JARA ([phone])[facility] ([facility])[address] [place] [address] MCV (RBC) [Entitic vol] 96.8 fL Normal 77.0-99.0 [facility] Comment on above: Performed By: #### L [id number] ####Asp Net Programmer: DOMENICA JARA ([phone])[facility] ([facility])[address] [place] [address] Platelet mean volume (Bld) [Entitic vol] 8.7 fL Low 9.0-12.7 [facility] Comment on above: Performed By: #### L [id number] ####Asp Net Programmer: DOMENICA JARA ([phone])[facility] [facility])[address] [place] [address] Platelets (Bld) [#/Vol] 306 10*3/uL Normal 140-440 [facility] Comment on above: Performed By: #### L [id number] ####Asp Net Programmer: DOMENICA JARA ([id number])[facility] ([facility])[address] [place] [address] RBC (Bld) [#/Vol] 2.78 10*6/uL Low 4.40-5.90 [facility] Comment on above: Performed By: #### L AB294 ####Asp Net Programmer: DOMENICA JARA ([phone])[facility] ([facility])[address] [place] [address] WBC (Bld) [#/Vol] 7.5 10*3/uL Normal 3.6-10.7 [facility] Comment on above: Performed By: #### L AB294 ####Asp Net Programmer: DOMENICA JARA ([phone])[facility] ([facility])[address] [place] [address] CBC panel Auto (Bld)on 03-01 Erythrocyte distribution width (RBC) [Ratio] 19.7 % High 11.5 - 15.0 % [facility] Hematocrit (Bld) [Volume fraction] 26.9 % Low 40.0 - 52.0 % [facility] Hemoglobin (Bld) [Mass/Vol] 8 g/dL Low 13.0 - 18.0 g/dL [facility] Interpretation and review of laboratory results Abnormal [facility] MCH (RBC) [Entitic mass] 28.8 pg 26. 0 - 34.0 pg [facility] MCHC (RBC) [Mass/Vol] 29.7 % Low 30.5 - 36.0 % [facility] MCV (RBC) [Entitic vol] 96.8 fL 77.0 - 99.0 fL [facility] Platelet mean volume (Bld) [Entitic vol] 8.7 fL Low 9.0 - 12.7 fL [facility] Platelets (Bld) [#/Vol] 306 10*3/uL 140 - 440 10*3/uL [facility] RBC (Bld) [#/Vol] 2.78 10*6/uL Low 4.40 - 5.9 0 10*6/uL [facility] WBC (Bld) [#/Vol] 7.5 10*3/uL 3.6 - 10.7 10*3/uL [facility] Laboratory - Coagulationon 0 03-01-2025 PT Coag (Bld) [Time] 14.3 s High 9.0 - 12.0 s [facility] No Panel Informationon 03-01 Interpretation and review of laboratory results Abnormal [facility] Nursing Noteon 03-01-2025 Nursing Note Normal [facility] PROTHROMBIN TIMEon INR Coag (PPP) [Relative time] 1.4 {INR} High 0.9-1.1 [facility] Comment on above: Result Comment: Vaughn [...] Myocardial Infarction Performed By: #### Tameka AB320, [id number] ####Asp Net Programmer: DOMENICA JARA ([phone])[facility] ([facility])[address] [place] [address] PT Coag (PPP) [Time] 14.3 s High 9.0-12.0 [facility] Comment on above: Performed By: #### Tameka AB320, [id number] ####Asp Net Programmer: DOMENICA JARA ([phone])[facility])[address] [place] [address] PT Coag (Bld) [Time]on 03-01 INR Coag (PPP) [Relative time] 1.4 {INR} High 0.9 - 1.1 [facility] Progress Noteon 03-01-2025 Progress Note Normal [facility] Progress Note Normal [facility] Progress Note Normal [facility] Progress Note Normal [facility] Progress Note PHYSICAL THERAPY [facility] Name/MRN: Jair Snyder ([id number]) Date: 03/01/2025 Leaving for dialysis. Return later time/date for PT. Merlene León, BUSINESS UNIT MANAGER Normal [facility] Progress Note Normal [facility] aPTT Coag (Bld) [Time]on aPTT Coag (PPP) [Time] 51.3 s High 20.0 - 30.5 s [facility] 30on 02-28-2025 30 Normal [facility] 30 Normal [facility] [id number] 02-28-2025 [id number] Auth is back however can not discharge still on hep gtt- auth good thru 03/02- hoping by Wednesday AM . Updated snf . [facility] [phone] Transport requested in [employer] in will call per [facility]. 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 Performed By: #### L AB325, [id number] ####Asp Net Programmer: DOMENICA JARA ([id number])[address] BASIC METABOLIC PANELon Anion gap [Moles/Vol] 11 mmol/L Normal 3-13 [facility] Comment on above: Performed By: #### L AB15 ####Asp Net Programmer: DOMENICA JARA ([phone])[address] Calcium [Mass/Vol] 9.3 mg/dL Normal 8.4-10.2 [facility] Comment on above: Performed By: #### L AB15 ####Asp Net Programmer: DOMENICA [id number])[facility] ([facility])[address] [place] [address] Chloride [Moles/Vol] 100 mmol/L Normal 98-107 [facility] Comment on above: Performed By: #### L AB15 ####Asp Net Programmer: DOMENICA JARA ([phone])[facility] ([facility])[address] [place] [address] CO2 [Moles/Vol] 27 mmol/L Normal 22-29 [facility] Comment on above: Performed By: #### L AB15 ####Asp Net Programmer: DOMENICA JARA ([phone])[facility])[address] [place] [address] Creatinine [Mass/Vol] 3.06 mg/dL High 0.72-1.25 [facility] Comment on above: Performed By: #### L AB15 ####Asp Net Programmer: DOMENICA JARA ([phone])[facility])[address] [place] [address] GLOMERULAR FILTRATION RATE ML/MIN/1.73 SQ M.PREDICTED 22.7 mL/min/1.73m*2 Low >60.0 [facility] Comment on above: Result Comment: Calc ulation based on the Chronic Kidney Disease Epidemiology Collaboration (CKD-EPI) equation refit without adjustment for race Performed By: #### L AB15 ####Asp Net Programmer: DOMENICA JARA ([phone])[facility])[address] [place] [address] Glucose [Mass/Vol] 94 mg/dL Normal 74-100 [facility] Comment on above: Performed By: #### L AB15 ####Asp Net Programmer: DOMENICA JARA ([phone])[facility])[address] [place] [address] Potassium [Moles/Vol] 5.0 mmol/L Normal 3.5-5.1 [facility] Comment on above: Result Comment: [facility] potassium values may be up to 0.5 mmol/L lower than serum values. Performed By: #### L AB15 ####Asp Net Programmer: DOMENICA [id number])[facility] ([facility])[address] [place] [address] Sodium [Moles/Vol] 138 mmol/L Normal 136-145 [facility] Comment on above: Performed By: #### L AB15 ####Asp Net Programmer: DOMENICA JARA ([phone])[facility] ([facility])[address] [place] [address] Urea nitrogen [Mass/Vol] 19 mg/dL Normal 9-23 [facility] Comment on above: Performed By: #### L AB15 ####Asp Net Programmer: DOMENICA JARA ([phone])[facility] ([facility])[address] [place] [address] Basic metabolic 1998 panelon 02-28-2025 Anion gap [Moles/Vol] 11 mmol/L 3 - 13 mmol/L [facility] Calcium [Mass/Vol] 9.3 mg/dL 8.4 - 10. 2 mg/dL [facility] Chloride [Moles/Vol] 100 mmol/L 98 - 10 7 mmol/L [facility] CO2 [Moles/Vol] 27 mmol/L 22 - 29 mmol/L [facility] Creatinine [Mass/Vol] 3.06 mg/dL High 0.72 - 1.25 mg/dL [facility] GFR/1.73 sq M.predicted (S/P/Bld) [Vol rate/Area] 22.7 mL/min Low - PINF [facility] Glucose [Mass/Vol] 94 mg/dL 74 - 100 mg/dL [facility] Interpretation and review of laboratory results Abnormal [facility] Potassium [Moles/Vol] 5 mmol/L 3.5 - 5.1 mmol/L [facility] Sodium [Moles/Vol] 138 mmol/L 136 - 145 mmol/L [facility] Urea nitrogen [Mass/Vol] 19 mg/dL 9 - 23 mg/d L [facility] CBC (HEMOGRAM)on 02-28-2025 Erythrocyte distribution width (RBC) [Ratio] 19.8 % High 11.5-15.0 [facility] Comment on above: Performed By: #### L AB294 ####Asp Net Programmer: DOMENICA JARA ([phone])[facility])[address] [place] [address] Hematocrit (Bld) [Volume fraction] 26.9 % Low 40.0-52.0 [facility] Comment on above: Performed By: #### L AB294 ####Asp Net Programmer: DOMENICA JARA ([phone])[facility])[address] [place] [address] Hemoglobin (Bld) [Mass/Vol] 8.2 g/dL Low 13.0-18.0 [facility] Comment on above: Performed By: #### L AB294 ####Asp Net Programmer: DOMENICA JARA ([phone])[facility])[address] [place] [address] MCH (RBC) [Entitic mass] 29.3 pg Normal 26.0-34.0 [facility] Comment on above: Performed By: #### L AB294 ####Asp Net Programmer: DOMENICA JARA ([phone])[facility])[address] [place] [address] MCHC 30.5 % Normal 30.5-36.0 [facility] Comment on above: Performed By: #### L AB294 ####Asp Net Programmer: DOMENICA JARA ([id number])[facility])[address] [place] [address] MCV (RBC) [Entitic vol] 96.1 fL Normal 77.0-99.0 S [facility] Comment on above: Performed By: #### L AB294 ####Asp Net Programmer: DOMENICA JARA ([id number])[facility])[address] [place] [address] Platelet mean volume (Bld) [Entitic vol] 9.0 fL Normal 9.0-12.7 [facility] Comment on above: Performed By: #### L AB294 ####Asp Net Programmer: DOMENICA JARA ([phone])[facility])[address] [place] [address] Platelets (Bld) [#/Vol] 324 10*3/uL Normal 140-440 [facility] Comment on above: Performed By: #### L AB294 ####Asp Net Programmer: DOMENICA JARA ([phone])[facility])[address] [place] [address] RBC (Bld) [#/Vol] 2.80 10*6/uL Low 4.40-5.90 [facility] Comment on above: Performed By: #### L AB294 ####Asp Net Programmer: DOMENICA JARA ([id number])[facility] ([facility])[address] [place] [address] WBC (Bld) [#/Vol] 8.0 10*3/uL Normal 3.6-10.7 [facility] Comment on above: Performed By: #### L AB294 ####Asp Net Programmer: DOMENICA JARA ([id number])[address] CBC panel Auto (Bld)Ordered By: Giancarlo Lakhani on 02-28-2025 Erythrocyte distribution width (RBC) [Ratio] 19.8 % High 11.5 - 15.0 % [facility] Hematocrit (Bld) [Volume fraction] 26.9 % Low 40.0 - 52.0 % [facility] Hemoglobin (Bld) [Mass/Vol] 8.2 g/dL Low 13.0 - 18.0 g/dL [facility] Interpretation and review of laboratory results Abnormal [facility] MCH (RBC) [Entitic mass] 29.3 pg 26. 0 - 34.0 pg [facility] MCHC (RBC) [Mass/Vol] 30.5 % 30.5 - 36.0 % [facility] MCV (RBC) [Entitic vol] 96.1 fL 77.0 - 99.0 fL [facility] Platelet mean volume (Bld) [Entitic vol] 9 fL 9.0 - 12.7 fL [facility] Platelets (Bld) [#/Vol] 324 10*3/uL 140 - 440 10*3/uL [facility] RBC (Bld) [#/Vol] 2.8 10*6/uL Low 4.40 - 5.9 0 10*6/uL [facility] WBC (Bld) [#/Vol] 8 10*3/uL 3.6 - 10.7 10*3/uL [facility] Laboratory - Coagulationon 0 02-28-2025 PT Coag (Bld) [Time] 14 s High 9.0 - 12.0 s [facility] No Panel Informationon 02-28 Interpretation and review of laboratory results Abnormal [facility] Nursing Noteon 02-28-2025 Nursing Note Normal [facility] PROTHROMBIN TIMEon INR Coag (PPP) [Relative time] 1.3 {INR} High 0.9-1.1 [facility] Comment on above: Result Comment: Vaughn [...] Myocardial Infarction Performed By: #### Tameka AB325, [id number] ####Asp Net Programmer: DOMENICA JARA ([phone])[address] PT Coag (PPP) [Time] 14.0 s High 9.0-12.0 [facility] Comment on above: Performed By: #### Tameka AB325, [id number] ####Asp Net Programmer: DOMENICA JARA ([phone])[address] PT Coag (Bld) [Time]on 02-28 INR Coag (PPP) [Relative time] 1.3 {INR} High 0.9 - 1.1 [facility] Progress Noteon 02-28-2025 Progress Note Normal [facility] Normal [facility] Progress Note Normal [facility] Progress Note Normal [facility] aPTT Coag (Bld) [Time]on aPTT Coag (PPP) [Time] 47.7 s High 20.0 - 30.5 s [facility] 30on 02-27-2025 30 Normal [facility] 30 Normal [facility] [id number] 02-27-2025 [id number] Normal [facility] APTTon 02-27-2025 aPTT Coag (Bld) [Time] 55.6 s High 20.0-30.5 [facility] Comment on above: Result Comment: ARPAN Kaplan COMMENTS:NOTE: The therapeutic time for Heparin anticoagulation, based on Xa activity inhibition, is an APTT of 46-80 seconds. Performed By: #### L AB325, [id number] ####Asp Net Programmer: DOMENICA JARA ([phone])[facility])[address] [place] [address] Bacteria identified Cx Nom ( Bld)on 02-27-2025 Interpretation and review of laboratory results Normal [facility] Interpretation and review of laboratory results Normal [facility] CBC (HEMOGRAM)on 02-27-2025 Erythrocyte distribution width (RBC) [Ratio] 19.5 % High 11.5-15.0 [facility] Comment on above: Performed By: #### L AB294 ####Asp Net Programmer: DOMENICA JARA ([id number])[address] Hematocrit (Bld) [Volume fraction] 28.8 % Low 40.0-52.0 [facility] Comment on above: Performed By: #### L AB294 ####Asp Net Programmer: DOMENICA JARA ([phone])[facility])[address] [place] [address] Hemoglobin (Bld) [Mass/Vol] 8.6 g/dL Low 13.0-18.0 [facility] Comment on above: Performed By: #### L AB294 ####Asp Net Programmer: DOMENICA JARA ([phone])[facility])[address] [place] [address] MCH (RBC) [Entitic mass] 28.7 pg Normal 26.0-34.0 [facility] Comment on above: Performed By: #### L AB294 ####Asp Net Programmer: DOMENICA JARA ([phone])[facility] ([facility])[address] [place] [address] MCHC 29.9 % Low 30.5-36.0 [facility] Comment on above: Performed By: #### L AB294 ####Asp Net Programmer: DOMENICA JARA ([phone])[facility] ([facility])[address] [place] [address] MCV (RBC) [Entitic vol] 96.0 fL Normal 77.0-99.0 [facility] Comment on above: Performed By: #### L AB294 ####Asp Net Programmer: DOMENICA JARA ([id number])[facility] ([facility])[address] [place] [address] Platelet mean volume (Bld) [Entitic vol] 8.9 fL Low 9.0-12.7 [facility] Comment on above: Performed By: #### L AB294 ####Asp Net Programmer: DOMENICA JARA ([id number])[facility] ([facility])[address] [place] [address] Platelets (Bld) [#/Vol] 302 10*3/uL Normal 140-440 [facility] Comment on above: Performed By: #### L AB294 ####Asp Net Programmer: DOMENICA JARA ([phone])[facility] ([facility])[address] [place] [address] RBC (Bld) [#/Vol] 3.00 10*6/uL Low 4.40-5.90 [facility] Comment on above: Performed By: #### L AB294 ####Asp Net Programmer: DOMENICA JARA ([phone])[facility] ([facility])[address] [place] [address] WBC (Bld) [#/Vol] 7.9 10*3/uL Normal 3.6-10.7 [facility] Comment on above: Performed By: #### L AB294 ####Asp Net Programmer: DOMENICA JRAA ([phone])[facility] ([address] CBC panel Auto (Bld)Ordered By: Brandy Ross on 02-27-2025 Erythrocyte distribution width (RBC) [Ratio] 19.5 % High 11.5 - 15.0 % [facility] Hematocrit (Bld) [Volume fraction] 28.8 % Low 40.0 - 52.0 % [facility] Hemoglobin (Bld) [Mass/Vol] 8.6 g/dL Low 13.0 - 18.0 g/dL [facility] Interpretation and review of laboratory results Abnormal [facility] MCH (RBC) [Entitic mass] 28.7 pg 26. 0 - 34.0 pg [facility] MCHC (RBC) [Mass/Vol] 29.9 % Low 30.5 - 36.0 % [facility] MCV (RBC) [Entitic vol] 96 fL 77.0 - 99.0 fL [facility] Platelet mean volume (Bld) [Entitic vol] 8.9 fL Low 9.0 - 12.7 fL [facility] Platelets (Bld) [#/Vol] 302 10*3/uL 140 - 440 10*3/uL [facility] RBC (Bld) [#/Vol] 3 10*6/uL Low 4.40 - 5.9 0 10*6/uL [facility] WBC (Bld) [#/Vol] 7.9 10*3/uL 3.6 - 10.7 10*3/uL [facility] ECG 12-LEADon 02-27-2025 ECG 12-LEAD IMPRESSION: Sinus rhythm Left atrial enlargement RBBB and LPFB Abnrm T, consider ischemia, anterolateral lds Compared to ECG 01/19/2025 06:31:48 Prolonged QT interval no longer present Electronically Signed On 02-27-2025 16:08:17 EDT by Ochoa Guido Normal [facility] Laboratory - Coagulationon 0 02-27-2025 PT Coag (Bld) [Time] 13.7 s High 9.0 - 12.0 s [facility] Laboratory - Microbiology an d Antimicrobial susceptibilityon 02-27-2025 Bacteria identified Cx Nom (Bld) No growth at 5 days [facility] [place] Bacteria identified Cx Nom (Bld) No growth at 5 days [facility] [place] No Panel InformationOrdered By: Ochoa Guido on 02-27-2025 P [place] 76 degrees [facility] Work Phone: NV Interval 150 ms [facility] Work Phone: QRS [place] 92 degrees [facility] Work Phone: QRSD Interval 124 ms [facility] Work Phone: QT Interval 417 ms [facility] Work Phone: QTC Interval 482 ms [facility] Work Phone: T Wave [place] 95 degrees [facility] [place] Work Phone: [facility] [place] Work Phone: No Panel Informationon 02-27 CV EPIPHANY [facility] Interpretation and review of laboratory results Abnormal [facility] Nursing Noteon 02-27-2025 Nursing Note Normal [facility] Nursing Note Normal [facility] PROTHROMBIN TIMEon INR Coag (PPP) [Relative time] 1.3 {INR} High 0.9-1.1 [facility] Comment on above: Result Comment: Vaughn [...] Myocardial Infarction Performed By: #### L AB325, [id number] ####Asp Net Programmer: DOMENICA JARA ([id number])[facility] ([address] PT Coag (PPP) [Time] 13.7 s High 9.0-12.0 [facility] Comment on above: Performed By: #### L AB325, [id number] ####Asp Net Programmer: DOMENICA JARA ([id number])[facility] ([facility] PT Coag (Bld) [Time]on 02-27 INR Coag (PPP) [Relative time] 1.3 {INR} High 0.9 - 1.1 [facility] Progress Noteon 02-27-2025 Progress Note Normal [facility] Progress Note Normal [facility] Progress [facility] Normal [facility] Progress [facility] Normal [facility] Progress Note Normal [facility] Progress Note Normal [facility] Vital signsOrdered By: Ochoa Guido on 02-27-2025 Heart rate 80 /min bpm [facility] Work Phone: aPTT Coag (Bld) [Time]on aPTT Coag (PPP) [Time] 55.6 s High 20.0 - 30.5 s [facility] 30on 02-26-2025 30 Normal [facility] [id number] 02-26-2025 [id number] Normal [facility] [id number] 02-26-2025 [id number] Getting updated therapy notes. Want to skill him at [facility]. Started on IV antibiotics for aspiration pneumonia. Continues on a heparin gtt. . [facility] [phone] Updated notes sent to [facility] via [facility] per [facility] request. Await review and response regarding ability to accept. [facility] notified. [facility] 36on 02-26-2025 36 Normal [facility] CBC W/Diff, Automatedon Absolute Neut Normal 2.0-7.7 [facility] Comment on above: Order Comment: 412.2 Result Comment: KIMBER ENT DISCHARGED Performed By: #### L 100.0100, L300.3900, L500.4050 #### [facility] [address] [place], [address] HCT Normal 40-54 [facility] Comment on above: Order Comment: 412.2 Result Comment: KIMBER ENT DISCHARGED Performed By: #### L 100.0100, L300.3900, L500.4050 #### [facility] [address] [place], [address] HGB Normal 13.0-16.5 [facility] Comment on above: Order Comment: 412.2 Result Comment: KIMBER ENT DISCHARGED Performed By: #### L 100.0100, L300.3900, L500.4050 #### [facility] [address] [place], [address] MCH Normal 27.0-32.0 [facility] Comment on above: Order Comment: 412.2 Result Comment: KIMBER ENT DISCHARGED Performed By: #### L 100.0100, L300.3900, L500.4050 #### [facility] [address] [place], [address] MCHC Normal 32-36 [facility] Comment on above: Order Comment: 412.2 Result Comment: KIMBER ENT DISCHARGED Performed By: #### L 100.0100, L300.3900, [id number] #### [facility] [address] [place], [address] MCV Normal 80-94 [facility] Comment on above: Order Comment: 412.2 Result Comment: KIMBER ENT DISCHARGED Performed By: #### L 100.0100, [id number], [id number] #### [facility] [address] [place], [address] NEUT% Normal 47-70 [facility] Comment on above: Order Comment: 412.2 Result Comment: KIMBER ENT DISCHARGED Performed By: #### L 100.0100, L300.3900, L500.4050 #### [facility] [address] [place], [address] PLT Normal 150-450 [facility] Comment on above: Order Comment: 412.2 Result Comment: KIMBER ENT DISCHARGED Performed By: #### L 100.0100, L300.3900, L500.4050 #### [facility] [address] [place], [address] RBC Normal 4.6-6.2 [facility] Comment on above: Order Comment: 412.2 Result Comment: KIMBER ENT DISCHARGED Performed By: #### L 100.0100, L300.3900, L500.4050 #### [facility] [address] [place], [address] RDW CV Normal 11.6-14.6 [facility] Comment on above: Order Comment: 412.2 Result Comment: KIMBER ENT DISCHARGED Performed By: #### L 100.0100, L300.3900, L500.4050 #### [facility] [address] [place], [address] RDW SD Normal 35.1-43.9 [facility] Comment on above: Order Comment: 412.2 Result Comment: KIMBER ENT DISCHARGED Performed By: #### L 100.0100, L300.3900, L500.4050 #### [facility] [address] [place], [address] WBC Normal 4.4-11.0 [facility] Comment on above: Order Comment: 412.2 Result Comment: KIMBER ENT DISCHARGED Performed By: #### L 100.0100, L300.3900, L500.4050 #### [facility] [address] [place], [address] Comprehensive Metabolic Prof ilon 02-26-2025 ALB Normal 3.5-5.0 [facility] Comment on above: Order Comment: 412.2 Result Comment: KIMBER ENT DISCHARGED Performed By: #### L 100.0100, L300.3900, L500.4050 #### [facility] [address] [place], [address] ALK PHOS Normal 40-129 [facility] Comment on above: Order Comment: 412.2 Result Comment: KIBMER ENT DISCHARGED Performed By: #### L 100.0100, L300.3900, L500.4050 #### [facility] [address] [place], [address] ALT Normal <=46 [facility] Comment on above: Order Comment: 412.2 Result Comment: KIMBER ENT DISCHARGED Performed By: #### L 100.0100, L300.3900, L500.4050 #### [facility] [address] [place], [address] AST Normal <=37 [facility] Comment on above: Order Comment: 412.2 Result Comment: KIMBER ENT DISCHARGED Performed By: #### L 100.0100, L300.3900, L500.4050 #### [facility] [address] [place], [address] BUN Normal 4-19 [facility] Comment on above: Order Comment: 412.2 Result Comment: KIMBER ENT DISCHARGED Performed By: #### L 100.0100, L300.3900, L500.4050 #### [facility] [address] [place], [address] BUN/CRE Normal 10-20 [facility] Comment on above: Order Comment: 412.2 Result Comment: KIMBER ENT DISCHARGED Performed By: #### L 100.0100, L300.3900, L500.4050 #### [facility] [address] [place], [address] Calcium Normal 7.6-11.0 [facility] Comment on above: Order Comment: 412.2 Result Comment: KIMBER ENT DISCHARGED Performed By: #### L 100.0100, L300.3900, L500.4050 #### [facility] [address] [place], [address] CL Normal 98-108 [facility] Comment on above: Order Comment: 412.2 Result Comment: KIMBER ENT DISCHARGED Performed By: #### L 100.0100, L300.3900, L500.4050 #### [facility] [address] [place], [address] CO2 Normal 21.0-32.0 [facility] Comment on above: Order Comment: 412.2 Result Comment: KIMBER ENT DISCHARGED Performed By: #### L 100.0100, L300.3900, L500.4050 #### [facility] [address] [place], [address] CREAT,SERUM Normal 0.70-1.20 [facility] Comment on above: Order Comment: 412.2 Result Comment: KIMBER ENT DISCHARGED Performed By: #### L 100.0100, L300.3900, L500.4050 #### [facility] [address] [place], [address] eGFR Normal >60 [facility] Comment on above: Order Comment: 412.2 Result Comment: KIMBER ENT DISCHARGED Performed By: #### L 100.0100, L300.3900, L500.4050 #### [facility] [address] [place], [address] GAP Normal 5-15 [facility] Comment on above: Order Comment: 412.2 Result Comment: KIMBER ENT DISCHARGED Performed By: #### L 100.0100, L300.3900, L500.4050 #### [facility] [address] [place], [address] GLU Normal 70-99 [facility] Comment on above: Order Comment: 412.2 Result Comment: KIMBER ENT DISCHARGED Performed By: #### L 100.0100, L300.3900, L500.4050 #### [facility] [address] [place], [address] Potassium Normal 3.3-5.1 [facility] Comment on above: Order Comment: 412.2 Result Comment: KIMBER ENT DISCHARGED Performed By: #### L 100.0100, L300.3900, L500.4050 #### [facility] [address] [place], [address] T BILI Normal 0.00-1.30 [facility] Comment on above: Order Comment: 412.2 Result Comment: KIMBER ENT DISCHARGED Performed By: #### L 100.0100, L300.3900, L500.4050 #### [facility] [address] [place], [address] T PROT Normal 5.9-8.4 [facility] Comment on above: Order Comment: 412.2 Result Comment: KIMBER ENT DISCHARGED Performed By: #### L 100.0100, L300.3900, L500.4050 #### [facility] [address] [place], [address] Comprehensive Metabolic Profil Normal 133-145 [facility] Comment on above: Order Comment: 412.2 Result Comment: KIMBER ENT DISCHARGED Performed By: #### L 100.0100, L300.3900, L500.4050 #### [facility] [address] [place], [address] HIGH SENSITIVITY TROPONIN, Sarkis MEDRANO, SECOND TESTon 02-26-2025 2H TROPONIN HS (SERIAL 2ND TROPONIN) 80 ng/L High <=35 [facility] Comment on above: Result Comment: 2h t roponin (2nd troponin) samples collected between 1h 40 min and 2h and 20 min of the baseline collection time can be utilized to interpret delta troponins as per [facility] algorithms. Samples collected outside this timeframe need to be interpreted clinically.Rising or falling troponin delta between 2 ??? 15 ng/L as compared to baseline value requires a 3rd serial troponin Performed By: #### L [id number] ####Asp Net Programmer: DOMENICA JARA ([id number])[facility] ([facility])[address] [place] [address] HIGH SENSITIVITY TROPONIN, S ERIAL, THIRD TESTon 02-26-2025 4H TROPONIN HS (SERIAL 3RD TROPONIN) 75 ng/L High <=35 [facility] Comment on above: Result Comment: 4h t roponin (3rd troponin) samples collected between 1h 40 min and 2h and 20 min of the 2h troponin collection time can be utilized to interpret delta troponins as per [facility] algorithms. Samples collected outside this timeframe need to be interpreted clinically.Rising or falling troponin delta between 2 ??? 15 ng/L as compared to 2h troponin valuerequires further evaluation. Performed By: #### L [id number] ####[employer] Programmer: DOMENICA JARA ([id number])[facility] ([facility])[address] [place] [address] Laboratory - Coagulationon 0 02-26-2025 PT Coag (Bld) [Time] 13.5 s High 9.0 - 12.0 s [facility] No Panel Informationon 02-26 4h Troponin HS (Serial 3rd Troponin) 75 ng/L High NINF - 35 ng/L [facility] Interpretation and review of laboratory results Abnormal [facility] 2h Troponin HS (Serial 2nd Troponin) 80 ng/L High NINF - 35 ng/L [facility] Interpretation and review of laboratory results Abnormal [facility] Interpretation and review of laboratory results Abnormal [facility] Troponin HS Serial Baseline 84 ng/L High NINF - 35 ng/L [facility] Interpretation and review of laboratory results Abnormal [facility] PT Coag (Bld) [Time]on 02-26 INR Coag (PPP) [Relative time] 1.3 {INR} High 0.9 - 1.1 [facility] Progress Noteon 02-26-2025 Progress Note Normal [facility] Progress [facility] Normal [facility] Progress Note Normal [facility] Progress Note Normal [facility] Prothrombin Time w/INRon INR Normal [facility] Comment on above: Order Comment: 412.2 Result Comment: KIMBER ENT DISCHARGED Performed By: #### L 100.0100, L300.3900, L500.4050 #### [facility] [address] [place], [address] PROTIME Normal 11.7-14.9 [facility] Comment on above: Order Comment: 412.2 Result Comment: KIMBER ENT DISCHARGED Performed By: #### L 100.0100, L300.3900, L500.4050 #### [facility] [address] [place], [address] aPTT Coag (Bld) [Time]on aPTT Coag (PPP) [Time] 48.2 s High 20.0 - 30.5 s [facility] 30on 02-25-2025 30 Normal [facility] 30 Normal [facility] [place] [facility] APTTon 02-25-2025 aPTT Coag (Bld) [Time] 48.2 s High 20.0-30.5 [facility] Comment on above: Result Comment: ARPAN Kaplan COMMENTS:NOTE: The therapeutic time for Heparin anticoagulation, based on Xa activity inhibition, is an APTT of 46-80 seconds. Performed By: #### L [id number], [id number] ####[employer] Programmer: DOMENICA JARA ([id number])[address] aPTT Coag (Bld) [Time] 49.5 s High 20.0-30.5 [facility] Comment on above: Result Comment: ARPAN Kaplan COMMENTS:NOTE: The therapeutic time for Heparin anticoagulation, based on Xa activity inhibition, is an APTT of 46-80 seconds. Performed By: #### L [id number], [id number] ####[employer] Programmer: DOMENICA JARA ([id number])[address] CBC (HEMOGRAM)on 02-25-2025 Erythrocyte distribution width (RBC) [Ratio] 19.9 % High 11.5-15.0 [facility] Comment on above: Performed By: #### L [id number] ####[employer] Programmer: DOMENICA JARA ([phone])[facility])[address] [place] [address] Hematocrit (Bld) [Volume fraction] 24.1 % Low 40.0-52.0 [facility] Comment on above: Performed By: #### L [id number] ####[employer] Programmer: DOMENICA JARA ([id number])[facility])[address] [place] [address] Hemoglobin (Bld) [Mass/Vol] 7.6 g/dL Low 13.0-18.0 [facility] Comment on above: Performed By: #### L [id number] ####[employer] Programmer: DOMENICA JARA ([phone])[facility])[address] [place] [address] MCH (RBC) [Entitic mass] 29.3 pg Normal 26.0-34.0 [facility] Comment on above: Performed By: #### L [id number] ####[employer] Programmer: DOMENICA JARA ([id number])[facility] ([facility])[address] [place] [address] MCHC 31.5 % Normal 30.5-36.0 [facility] Comment on above: Performed By: #### L [id number] ####[employer] Programmer: DOMENICA JARA ([id number])[facility])[address] [place] [address] MCV (RBC) [Entitic vol] 93.1 fL Normal 77.0-99.0 [facility] Comment on above: Performed By: #### L [id number] ####[employer] Programmer: DOMENICA JARA ([id number])[facility])[address] [place] [address] Platelet mean volume (Bld) [Entitic vol] 8.9 fL Low 9.0-12.7 [facility] Comment on above: Performed By: #### L [id number] ####Asp [employer] Programmer: DOMENICA JARA ([id number])[facility] [place] [address] Platelets (Bld) [#/Vol] 280 10*3/uL Normal 140-440 [facility] Comment on above: Performed By: #### L [id number] ####[employer] Programmer: DOMENICA JARA ([id number])[address] RBC (Bld) [#/Vol] 2.59 10*6/uL Low 4.40-5.90 [facility] Comment on above: Performed By: #### L [id number] ####[employer] Programmer: DOMENICA JARA ([id number])[address] WBC (Bld) [#/Vol] 7.5 10*3/uL Normal 3.6-10.7 [facility] Comment on above: Performed By: #### L [id number] ####[employer] Programmer: DOMENICA JARA ([id number])[address] CBC panel Auto (Bld)on 02-25 Erythrocyte distribution width (RBC) [Ratio] 19.9 % High 11.5 - 15.0 % [facility] Hematocrit (Bld) [Volume fraction] 24.1 % Low 40.0 - 52.0 % [facility] Hemoglobin (Bld) [Mass/Vol] 7.6 g/dL Low 13.0 - 18.0 g/dL [facility] Interpretation and review of laboratory results Abnormal [facility] MCH (RBC) [Entitic mass] 29.3 pg 26. 0 - 34.0 pg [facility] MCHC (RBC) [Mass/Vol] 31.5 % 30.5 - 36.0 % [facility] MCV (RBC) [Entitic vol] 93.1 fL 77.0 - 99.0 fL [facility] Platelet mean volume (Bld) [Entitic vol] 8.9 fL Low 9.0 - 12.7 fL [facility] Platelets (Bld) [#/Vol] 280 10*3/uL 140 - 440 10*3/uL [facility] RBC (Bld) [#/Vol] 2.59 10*6/uL Low 4.40 - 5.9 0 10*6/uL [facility] WBC (Bld) [#/Vol] 7.5 10*3/uL 3.6 - 10.7 10*3/uL [facility] HIGH SENSITIVITY TROPONIN, S ERIAL BASELINEon 02-25-2025 TROPONIN HS SERIAL BASELINE 84 ng/L High <=35 [facility] Comment on above: Result Comment: In i ndividuals presenting with symptoms > 2h, a baseline troponin <= 5 ng/L suggests acutecardiac injury is unlikely and further serial testing is generally not indicated. Performed By: #### L [id number] ####[employer] Programmer: DOMENICA JARA ([id number])[address] Laboratory - Coagulationon 0 02-25-2025 PT Coag (Bld) [Time] 13.7 s High 9.0 - 12.0 s [facility] No Panel Informationon 02-25 Interpretation and review of laboratory results Abnormal [facility] Nursing Noteon 02-25-2025 Nursing Note 2322- Notified Dr. Hathaway of patient complaint of SOB and worsening chest pain that he described as dull and tight. Vitals WDL. STAT EKG ordered, patient given Nitrostat, and troponin sent down. 2330- Notified [employer] OPERATOR to assess the patient. Normal [facility] PROTHROMBIN TIMEon INR Coag (PPP) [Relative time] 1.3 {INR} High 0.9-1.1 [facility] Comment on above: Result Comment: Vaughn [...] Myocardial Infarction Performed By: #### L [id number], [id number] ####[employer] Programmer: DOMENICA JARA ([id number])[facility])[address] [place] [address] PT Coag (PPP) [Time] 13.5 s High 9.0-12.0 [facility] Comment on above: Performed By: #### L [id number], [id number] ####[employer] Programmer: DOMENICA JARA ([id number])[facility])[address] [place] [address] INR Coag (PPP) [Relative time] 1.3 {INR} High 0.9-1.1 [facility] Comment on above: Result Comment: Vaughn [...] to prevent Myocardial Infarction Performed By: #### Tameak [id number], [id number] ####[employer] Programmer: DOMENICA JARA ([id number])[facility])[address] [place] [address] [place] PT Coag (PPP) [Time] 13.7 s High 9.0-12.0 [facility] Comment on above: Performed By: #### L [id number], [id number] ####[employer] Programmer: DOMENICA JARA ([phone])[facility])[address] [place] [address] [place] PT Coag (Bld) [Time]on 02-25 INR Coag (PPP) [Relative time] 1.3 {INR} High 0.9 - 1.1 [facility] Progress Noteon 02-25-2025 Progress Note Normal [facility] Progress Note Normal [facility] Progress Note Normal [facility] Progress Note Normal [facility] aPTT Coag (Bld) [Time]on aPTT Coag (PPP) [Time] 49.5 s High 20.0 - 30.5 s [facility] 30on 02-24-2025 30 Normal [facility] 30 Normal [facility] APTTon 02-24-2025 aPTT Coag (Bld) [Time] 54.7 s High 20.0-30.5 [facility] Comment on above: Result Comment: ARPAN Kaplan COMMENTS:NOTE: The therapeutic time for Heparin anticoagulation, based on Xa activity inhibition, is an APTT of 46-80 seconds. Performed By: #### L [id number] ####[employer] Programmer: DOMENICA JARA ([id number])[facility] ([facility])[address] [place] [address] aPTT Coag (Bld) [Time] 61.0 s High 20.0-30.5 [facility] Comment on above: Result Comment: ARPAN Kaplan COMMENTS:NOTE: The therapeutic time for Heparin anticoagulation, based on Xa activity inhibition, is an APTT of 46-80 seconds. Performed By: #### L AB320, [id number] ####[employer] Programmer: DOMENICA JARA ([id number])[facility] ([facility])[address] [place] [address] Bacteria identified Aer cx N om (Lower resp)Ordered By: Corey Pabon on 02-24-2025 Gram Stain Result Many Polymorphonuclear leukocytes per low power field Abnormal [facility] Gram Stain Result Few Epithelial cells per low power field Abnormal [facility] Gram Stain Result Positive Abnormal [facility] Gram Stain Result Negative Abnormal [facility] Gram Stain Result Few Yeast Abnormal [facility] Interpretation and review of laboratory results Abnormal [facility] HBV surface Ab IA Qnon 02-24 [facility] HBV surface Ag IA Qlon 02-24 Interpretation and review of laboratory results Normal [facility] HEPATITIS B SURFACE ANTIBODY on 02-24-2025 HEPATITIS B VIRUS SURFACE AB <8.0 Normal [facility] Comment on above: Result Comment: ARPAN Kaplan COMMENTS:Interpretation:<8.0 Non-Reactive8.0-11.9 Equivocal>= 12.0 Ab DetectedNote: If an equivocal result is interpreted, an antibody status is unable to be determined. Collect new specimen if clinically indicated. Performed By: #### L [id number], [id number] ####[employer] Programmer: DOMENICA JARA ([phone])[facility] ([facility])[address] [place] [address] HEPATITIS B SURFACE ANTIGENo n 02-24-2025 HEPATITIS B VIRUS SURFACE AG Not detected Normal Not Detected [facility] Comment on above: Performed By: #### L [id number], [id number] ####[employer] Programmer: DOMENICA JARA ([id number])[facility] ([facility])[address] [place] [address] Laboratory - Coagulationon 0 02-24-2025 PT Coag (Bld) [Time] 13.5 s High 9.0 - 12.0 s [facility] Laboratory - Drug toxicology on 02-24-2025 Vancomycin trough [Mass/Vol] 23.4 ug/mL [facility] Laboratory - Microbiology an d Antimicrobial susceptibilityon 02-24-2025 HBV surface Ab IA Qn mIU/mL [facility] HBV surface Ag IA Ql Not detected Not Detected [facility] Laboratory - Microbiology an d Antimicrobial susceptibilityOrdered By: Croey Pabon on 02-24-2025 Bacteria identified Aer cx Nom (Lower resp) Few respiratory ila present. [facility] Bacteria identified Aer cx Nom (Lower resp) Moderate Klebsiella oxytoca Abnormal [facility] No Panel Informationon 02-24 [facility] Interpretation and review of laboratory results Abnormal [facility] Nursing Noteon 02-24-2025 Nursing Note Normal [facility] PROTHROMBIN TIMEon INR Coag (PPP) [Relative time] 1.3 {INR} High 0.9-1.1 [facility] Comment on above: Result Comment: Vaughn [...] Myocardial Infarction Performed By: #### L [id number], [id number] ####[employer] Programmer: DOMENICA JARA ([id number])[facility] ([facility])[address] [place] [address] PT Coag (PPP) [Time] 13.5 s High 9.0-12.[address] [facility] Comment on above: Performed By: #### L [id number], [id number] ####[employer] Programmer: DOMENICA JARA ([id number])[facility] ([facility])[address] [place] [address] PT Coag (Bld) [Time]on 02-24 INR Coag (PPP) [Relative time] 1.3 {INR} High 0.9 - 1.1 [facility] Progress Noteon 02-24-2025 Progress Note Vancomycin therapy has been discontinued by Hussain Quintana on 02/24. Thank you for the consult. Pharmacy signing off for vancomycin dosing. Marissa Iglesias, PharmD, Date: 02/24/25 Time: 4:08 PM Normal [facility] Progress Note Normal [facility] Progress Note Normal [facility] Progress [facility] Normal [facility] Progress Note Normal [facility] VANCOMYCIN, AUC TIMED DOSING on 02-24-2025 VANCOMYCIN, AUC 23.4 ug/mL Normal [facility] Comment on above: Result Comment: ARPAN Kaplan COMMENTS:Please draw random level at least >4 hours after the end of hemodialysis.Toxicity is seen at concentrations >80-100 ug/mLTherapeutic (Peak) range: 20-40Therapeutic (Trough) range: 5-10 Performed By: #### L AB39 ####[employer] Programmer: DOMENICA JARA ([id number])[facility] ([facility])[address] [place] [address] Vancomycin trough [Mass/Vol] on 02-24-2025 [facility] aPTT Coag (Bld) [Time]on aPTT Coag (PPP) [Time] 54.7 s High 20.0 - 30.5 s [facility] Interpretation and review of laboratory results Abnormal [facility] aPTT Coag (PPP) [Time] 61 s High 20.0 - 30.5 s [facility] [id number] 02-23-2025 [id number] Normal [facility] 36on 02-23-2025 36 Called LM to call back and schedule CT and hospital follow up with any ARMIN Normal [facility] 36 Hello, can we please schedule a 6-week CT scan for this patient and a follow-up appointment after this? Thank you Normal [facility] APTTon 02-23-2025 aPTT Coag (Bld) [Time] 49.3 s High 20.0-30.5 [facility] Comment on above: Result Comment: ARPAN Kaplan COMMENTS:NOTE: The therapeutic time for Heparin anticoagulation, based on Xa activity inhibition, is an APTT of 46-80 seconds. Performed By: #### L AB325, [id number] ####[employer] Programmer: DOMENICA JARA ([phone])[facility])[address] [place] [address] CBC (HEMOGRAM)on 02-23-2025 Erythrocyte distribution width (RBC) [Ratio] 19.7 % High 11.5-15.0 [facility] Comment on above: Performed By: #### L [id number] ####[employer] Programmer: DOMENICA JARA ([phone])[facility])[address] [place] [address] Hematocrit (Bld) [Volume fraction] 27.9 % Low 40.0-52.0 [facility] Comment on above: Performed By: #### L [id number] ####[employer] Programmer: DOMENICA JARA ([id number])[facility])[address] [place] [address] Hemoglobin (Bld) [Mass/Vol] 8.6 g/dL Low 13.0-18.0 [facility] Comment on above: Performed By: #### L [id number] ####[employer] Programmer: DOMENICA JARA ([id number])[facility])[address] [place] [address] MCH (RBC) [Entitic mass] 28.7 pg Normal 26.0-34.0 [facility] [facility] Comment on above: Performed By: #### L [id number] ####Asp Net Programmer: DOMENICA JARA ([phone])[facility])[address] [place] [address] MCHC 30.8 % Normal 30.5-36.0 [facility] Comment on above: Performed By: #### L [id number] ####Asp Net Programmer: DOMENICA JARA ([phone])[facility] ([facility])[address] [place] [address] MCV (RBC) [Entitic vol] 93.0 fL Normal 77.0-99.0 S [facility] Comment on above: Performed By: #### L [id number] ####Asp Net Programmer: DOMENICA JARA ([phone])[facility])[address] [place] [address] Platelet mean volume (Bld) [Entitic vol] 8.9 fL Low 9.0-12.7 [facility] Comment on above: Performed By: #### L [id number] ####Asp Net Programmer: DOMENICA JARA ([phone])[facility])[address] [place] [address] Platelets (Bld) [#/Vol] 316 10*3/uL Normal 140-440 [facility] Comment on above: Performed By: #### L [id number] ####Asp Net Programmer: DOMENICA JARA ([phone])[facility])[address] [place] [address] RBC (Bld) [#/Vol] 3.00 10*6/uL Low 4.40-5.90 [facility] Comment on above: Performed By: #### L [id number] ####Asp Net Programmer: DOMENICA JARA ([id number])[facility])[address] [place] [address] WBC (Bld) [#/Vol] 8.6 10*3/uL Normal 3.6-10.7 [facility] Comment on above: Performed By: #### L [id number] ####Asp Net Programmer: DOMENICA JARA ([phone])[facility] ([facility])[address] [place] [address] CBC panel Auto (Bld)on 02-23 Erythrocyte distribution width (RBC) [Ratio] 19.7 % High 11.5 - 15.0 % [facility] Hematocrit (Bld) [Volume fraction] 27.9 % Low 40.0 - 52.0 % [facility] Hemoglobin (Bld) [Mass/Vol] 8.6 g/dL Low 13.0 - 18.0 g/dL [facility] Interpretation and review of laboratory results Abnormal [facility] MCH (RBC) [Entitic mass] 28.7 pg 26. 0 - 34.0 pg [facility] MCHC (RBC) [Mass/Vol] 30.8 % 30.5 - 36.0 % [facility] MCV (RBC) [Entitic vol] 93 fL 77.0 - 99.0 fL [facility] Platelet mean volume (Bld) [Entitic vol] 8.9 fL Low 9.0 - 12.7 fL [facility] Platelets (Bld) [#/Vol] 316 10*3/uL 140 - 440 10*3/uL [facility] RBC (Bld) [#/Vol] 3 10*6/uL Low 4.40 - 5.9 0 10*6/uL [facility] WBC (Bld) [#/Vol] 8.6 10*3/uL 3.6 - 10.7 10*3/uL [facility] COMPREHENSIVE METABOLIC PANE Victor M 02-23-2025 Albumin [Mass/Vol] 1.9 g/dL Low 3.5-5.0 [facility] Comment on above: Performed By: #### L AB113, LAB17, [id number] ####Asp Net Programmer: DOMENICA JARA ([phone])[facility] ([facility])[address] [place] [address] ALP [Catalytic activity/Vol] 136 U/L Normal 40-150 [facility] Comment on above: Performed By: #### L AB113, LAB17, [id number] ####Asp Net Programmer: DOMENICA JARA ([phone])[facility] ([facility])[address] [place] [address] [place] ALT [Catalytic activity/Vol] 10 U/L Normal <40 [facility] Comment on above: Performed By: #### L AB113, LAB17, [id number] ####Asp Net Programmer: DOMENICA JARA ([phone])[facility] ([facility])[address] [place] [address] Anion gap [Moles/Vol] 11 mmol/L Normal 3-13 [facility] Comment on above: Performed By: #### L AB113, LAB17, [id number] ####Asp Net Programmer: DOMENICA JARA ([phone])[facility] ([facility])[address] [place] [address] AST [Catalytic activity/Vol] 37 U/L High <34 [facility] Comment on above: Performed By: #### L ABAruna, LAB17, [id number] ####Asp Net Programmer: DOMENICA JARA ([id number])[facility] ([facility])[address] [place] [address] [place] Bilirubin [Mass/Vol] 0.6 mg/dL Normal <1.[address] [facility] Comment on above: Performed By: #### L ABAruna, LAB17, [id number] ####Asp Net Programmer: DOMENICA JARA ([phone])[facility] ([facility])[address] [place] [address] [place] Calcium [Mass/Vol] 9.2 mg/dL Normal 8.4-10.2 [facility] Comment on above: Performed By: #### L AB113, LAB17, [id number] ####Asp Net Programmer: DOMENICA JARA ([phone])[facility] ([facility])[address] [place] [address] [place] Chloride [Moles/Vol] 99 mmol/L Normal 98-[address] [facility] Comment on above: Performed By: #### L AB113, LAB17, [id number] ####Asp Net Programmer: DOMENICA JARA ([phone])[facility] ([facility])[address] [place] [address] [place] CO2 [Moles/Vol] 25 mmol/L Normal 22-29 [facility] Comment on above: Performed By: #### Tameka ABAruna, LAB17, [id number] ####Asp Net Programmer: DOMENICA JARA ([phone])[facility] ([facility])[address] [place] [address] Creatinine [Mass/Vol] 2.78 mg/dL High 0.72-1.25 [facility] Comment on above: Performed By: #### Tameka ABAruna, LAB17, [id number] ####Asp Net Programmer: DOMENICA JARA ([phone])[facility] ([facility])[address] [place] [address] GLOMERULAR FILTRATION RATE ML/MIN/1.73 SQ M.PREDICTED 25.4 mL/min/1.73m*2 Low >60.0 [facility] Comment on above: Result Comment: Calc ulation based on the Chronic Kidney Disease Epidemiology Collaboration (CKD-EPI) equation refit without adjustment for race Performed By: #### Tameka GIMENEZ, LAB17, [id number] ####Asp Net Programmer: DOMENICA JARA ([phone])[facility] ([facility])[address] [place] [address] Glucose [Mass/Vol] 110 mg/dL High 74-100 [facility] Comment on above: Performed By: #### Tameka GIMENEZ, LAB17, [id number] ####Asp Net Programmer: DOMENICA JARA ([phone])[facility])[address] [place] [address] Potassium [Moles/Vol] 4.1 mmol/L Normal 3.5-5.1 [facility] Comment on above: Result Comment: [facility] potassium values may be up to 0.5 mmol/L lower than serum values. Performed By: #### Tameka ABAruna, LAB17, [id number] ####Asp Net Programmer: DOMENICA JARA ([phone])[facility])[address] [place] [address] Protein [Mass/Vol] 7.1 g/dL Normal 6.4-8.3 [facility] Comment on above: Performed By: #### L AB113, LAB17, [id number] ####Asp Net Programmer: DOMENICA JARA ([phone])[facility] ([facility])[address] [place] [address] Sodium [Moles/Vol] 135 mmol/L Low 136-145 [facility] Comment on above: Performed By: #### L AB113, LAB17, [id number] ####Asp Net Programmer: DOMENICA JARA ([phone])[facility] ([facility])[address] [place] [address] Urea nitrogen [Mass/Vol] 21 mg/dL Normal 9-23 [facility] Comment on above: Performed By: #### L AB113, LAB17, [id number] ####Asp Net Programmer: DOMENICA JARA ([id number])[facility] ([facility])[address] [place] [address] Comprehensive metabolic 1998 panelOrdered By: Jarred José on 02-23-2025 Albumin [Mass/Vol] 1.9 g/dL Low 3.5 - 5.0 g/dL [facility] ALP [Catalytic activity/Vol] 136 U/L 40 - 150 U/L [facility] ALT [Catalytic activity/Vol] 10 U/L [facility]L [facility] Anion gap [Moles/Vol] 11 mmol/L 3 - 13 mmol/L [facility] AST [Catalytic activity/Vol] 37 U/L High [facility] - 34 U/L [facility] Bilirubin [Mass/Vol] 0.6 mg/dL NINF - 1.2 mg/dL [facility] Calcium [Mass/Vol] 9.2 mg/dL 8.4 - 10. 2 mg/dL [facility] Chloride [Moles/Vol] 99 mmol/L 98 - 10 7 mmol/L [facility] CO2 [Moles/Vol] 25 mmol/L 22 - 29 mmol/L [facility] Creatinine [Mass/Vol] 2.78 mg/dL High 0.72 - 1.25 mg/dL [facility] GFR/1.73 sq M.predicted (S/P/Bld) [Vol rate/Area] 25.4 mL/min Low - PINF [facility] Glucose [Mass/Vol] 110 mg/dL High 74 - 100 mg/dL [facility] Interpretation and review of laboratory results Abnormal [facility] Potassium [Moles/Vol] 4.1 mmol/L 3.5 - 5.1 mmol/L [facility] Protein [Mass/Vol] 7.1 g/dL 6.4 - 8.3 g/dL [facility] Sodium [Moles/Vol] 135 mmol/L Low 136 - 145 mmol/L [facility] Urea nitrogen [Mass/Vol] 21 mg/dL 9 - 23 mg/d L [facility] Health Consulton 02-23-2025 Consult Normal [facility] Laboratory - Chemistry and C hemistry - challengeon 02-23-2025 Magnesium [Mass/Vol] 2 mg/dL 1.6 - 2 .6 mg/dL [facility] Laboratory - Coagulationon 0 02-23-2025 PT Coag (Bld) [Time] 14 s High 9.0 - 12.0 s [facility] MAGNESIUMon 02-23-2025 Magnesium [Mass/Vol] 2.0 mg/dL Normal 1.6-2.6 [facility] Comment on above: Result Comment: ARPAN Kaplan COMMENTS:Higher values can be expected in females during menses. Performed By: #### L AB113, LAB17, [id number] ####Asp Net Programmer: DOMENICA JARA ([phone])[facility])[address] [place] [address] Magnesium [Mass/Vol]on 02-23 [facility] No Panel Informationon 02-23 Interpretation and review of laboratory results Normal [facility] Interpretation and review of laboratory results Abnormal [facility] Nursing Noteon 02-23-2025 Nursing Note Normal [facility] Nursing Note Normal [facility] PHOSPHORUSon 02-23-2025 Phosphate [Mass/Vol] 2.6 mg/dL Normal 2.3-4.7 [facility] Comment on above: Performed By: #### L AB113, LAB17, [id number] ####Asp Net Programmer: DOMENICA JARA ([phone])[facility] ([facility])[address] [place] [address] PROTHROMBIN TIMEon INR Coag (PPP) [Relative time] 1.3 {INR} High 0.9-1.1 [facility] Comment on above: Result Comment: Vaughn [...] Myocardial Infarction Performed By: #### L AB325, [id number] ####Asp Net Programmer: DOMENICA JARA ([phone])[facility] ([facility])[address] [place] [address] PT Coag (PPP) [Time] 14.0 s High 9.0-12.0 [facility] Comment on above: Performed By: #### L AB325, [id number] ####Asp [employer] Programmer: DOMENICA JARA ([phone])[facility] ([employer])[address] [place] [address] PT Coag (Bld) [Time]on 02-23 INR Coag (PPP) [Relative time] 1.3 {INR} High 0.9 - 1.1 [facility] [place] Phosphate [Moles/Vol]on 01-27 Phosphate [Mass/Vol] 2.6 mg/dL 2.3 - 4 .7 mg/dL [facility] Progress Noteon 02-23-2025 Progress Note Normal [facility] Progress Note Normal [facility] Progress Note Normal [facility] Progress [facility] Normal [facility] Progress Note Normal [facility] Progress Note Normal [facility] US Heart TransthoracicOrdere d By: Daryn Chowdary on 02-23-2025 Aortic valve Mean systole pressure gradient by US.doppler derived full Bernoulli 10 mmHg [facility] Work Phone: Aortic valve Orifice area by US 3.1 cm2 [facility] Work Phone: Aortic valve Peak systolic flow by US.doppler 1.4 m/s [facility] Work Phone: Ascending Aorta 3.5 cm [facility] Work Phone: Ascending Aorta Index 1.99 cm/m2 [facility] Work Phone: AV Area by Peak Velocity 1.3 cm2 [facility] Work Phone: AV Area by VTI 1.5 cm2 [facility] Work Phone: AV AT 66.6 ms [facility] Work Phone: AV Peak Gradient 20 mmHg [facility] Work Phone: AV Peak Velocity 2.3 m/s [facility] Work Phone: AV Velocity Ratio 0.39 [facility] Work Phone: AV VTI 39.1 cm [facility] Work Phone: MALU/BSA Peak Velocity 0.7 cm2/m2 [facility] Work Phone: MALU/BSA VTI 0.9 cm2/m2 [facility] Work Phone: E/E' Lateral 21.43 [facility] Work Phone: E/E' Ratio (Averaged) 25.71 [facility] Work Phone: E/E' Septal 30 [facility] Work Phone: Est. RA Pressure 15 mmHg [facility] Work Phone: Fractional Shortening 2D 31 % 28 - 44 % [facility] Work Phone: Interpretation and review of laboratory results Abnormal [facility] Work Phone: IVC Diameter 2.5 cm [facility] Work Phone: IVSd 1.6 cm Abnormal 0.6 - 1.0 cm [facility] Work Phone: LA Diameter 3.1 cm [facility] Work Phone: LA Size Index 1.76 [...] LV E' Lateral Velocity 7 cm/s [facility] Work Phone: LV E' Septal Velocity 5 cm/s [facility] Work Phone: LV Mass 2D 201 g 88 - 224 g [facility] Work Phone: LV Mass 2D Index 114.2 g/m2 49 - 115 g/m2 [facility] Work Phone: LV RWT Ratio 0.78 [facility] Work Phone: LVIDd 3.6 cm Abnormal 4.2 - 5.9 cm [facility] Work Phone: LVIDd Index 2.05 cm/m2 [facility] Work Phone: LVIDs 2.5 cm [facility] Work Phone: LVIDs Index 1.42 cm/m2 [facility] Work Phone: LVOT Cardiac Output 5.3 liter/minute [facility] Work Phone: LVOT Diameter 2 cm [facility] Work Phone: LVOT Mean Gradient 2 mmHg [facility] Work Phone: LVOT Peak Gradient 3 mmHg [facility] Work Phone: LVOT Peak Velocity 0.9 m/s [facility] Work Phone: LVOT Stroke Volume Index 33.4 mL/m2 [facility] Work Phone: LVOT SV 58.7 ml [facility] Work Phone: LVOT VTI 18.7 cm [facility] Work Phone: LVOT:AV VTI Index 0.48 [facility] Work Phone: LVPWd 1.4 cm Abnormal 0.6 - 1.0 cm [facility] Work Phone: MV A Velocity 0.97 m/s [facility] Work Phone: MV Area by PHT 3 cm2 [facility] Work Phone: MV Area by VTI 1.3 cm2 [facility] Work Phone: MV E Velocity 1.5 m/s [facility] Work Phone: MV E Wave Deceleration Time 250.1 ms [facility] Work Phone: MV E/A 1.55 [facility] Work Phone: MV Max Velocity 2 m/s [facility] Work Phone: MV Mean Gradient 7 mmHg [facility] Work Phone: MV Mean Velocity 1.2 m/s [facility] Work Phone: MV Peak Gradient 16 mmHg [facility] Work Phone: MV PHT 73.9 ms [facility] Work Phone: MV VTI 44.1 cm [facility] Work Phone: MV:LVOT VTI Index [...] [facility] Work Phone: US Heart Transthoracicon [facility] aPTT Coag (Bld) [Time]on aPTT Coag (PPP) [Time] 49.3 s High 20.0 - 30.5 s [facility] 30on 02-22-2025 30 Normal [facility] [id number] 02-22-2025 [id number] Normal [facility] [id number] Updated notes sent to [facility] via [facility] per TCC request. Await review and response regarding ability to accept. TCC notified. Normal [facility] APTTon 02-22-2025 aPTT Coag (Bld) [Time] 52.1 s High 20.0-30.5 [facility] Comment on above: Result Comment: ARPAN Kaplan COMMENTS:NOTE: The therapeutic time for Heparin anticoagulation, based on Xa activity inhibition, is an APTT of 46-80 seconds. Performed By: #### L AB325 ####[employer] Programmer: DOMENICA JARA ([phone])[facility])[address] [place] [address] aPTT Coag (Bld) [Time] 54.9 s High 20.0-30.5 [facility] Comment on above: Result Comment: ARPAN Kaplan COMMENTS:NOTE: The therapeutic time for Heparin anticoagulation, based on Xa activity inhibition, is an APTT of 46-80 seconds. Performed By: #### L AB325, [id number] ####[employer] Programmer: DOMENICA JARA ([phone])[facility])[address] [place] [address] BLOOD CULTUREon 02-22-2025 Bacteria identified Cx Nom (Bld) Normal [facility] Comment on above: Performed By: #### L [id number] ####[employer] Programmer: DOMENICA JARA ([phone])[facility])[address] [place] [address] Bacteria identified Cx Nom (Bld) Normal [facility] Comment on above: Performed By: #### L [id number] ####Asp [employer] Programmer: DOMENICA JARA ([phone])[facility])[address] [place] [address] CBC (HEMOGRAM)on 02-22-2025 Erythrocyte distribution width (RBC) [Ratio] 19.4 % High 11.5-15.0 [facility] Comment on above: Performed By: #### L [id number] ####[employer] Programmer: DOMENICA JARA ([phone])[facility])[address] [place] [address] Hematocrit (Bld) [Volume fraction] 24.5 % Low 40.0-52.0 [facility] Comment on above: Performed By: #### L [id number] ####[employer] Programmer: DOMENICA JARA ([phone])[facility])[address] [place] [address] Hemoglobin (Bld) [Mass/Vol] 7.8 g/dL Low 13.0-18.0 [facility] Comment on above: Performed By: #### L [id number] ####[employer] Programmer: DOMENICA JARA ([phone])[facility] ([facility])[address] [place] [address] MCH (RBC) [Entitic mass] 29.0 pg Normal 26.0-34.0 [facility] Comment on above: Performed By: #### L [id number] ####Asp [employer] Programmer: DOMENICA JARA ([phone])[facility])[address] [place] [address] MCHC 31.8 % Normal 30.5-36.0 [facility] Comment on above: Performed By: #### L [id number] ####Asp Net Programmer: DOMENICA JARA ([phone])[facility])[address] [place] [address] MCV (RBC) [Entitic vol] 91.1 fL Normal 77.0-99.0 [facility] Comment on above: Performed By: #### L [id number] ####Asp [employer] Programmer: DOMENICA JARA ([phone])[facility])[address] [place] [address] Platelet mean volume (Bld) [Entitic vol] 8.9 fL Low 9.0-12.7 [facility] Comment on above: Performed By: #### L [id number] ####Asp Net Programmer: DOMENICA JARA ([phone])[facility])[address] [place] [address] Platelets (Bld) [#/Vol] 282 10*3/uL Normal 140-440 [facility] Comment on above: Performed By: #### L [id number] ####Asp [employer] Programmer: DOMENICA JARA ([phone])[facility])[address] [place] [address] RBC (Bld) [#/Vol] 2.69 10*6/uL Low 4.40-5.90 [facility] Comment on above: Performed By: #### L [id number] ####[employer] Programmer: DOMENICA JARA ([phone])[facility])[address] [place] [address] WBC (Bld) [#/Vol] 9.0 10*3/uL Normal 3.6-10.7 [facility] Comment on above: Performed By: #### L [id number] ####Asp [employer] Programmer: DOMENICA JARA ([phone])[facility] ([facility])[address] [place] [address] CBC panel Auto (Bld)on 02-22 Erythrocyte distribution width (RBC) [Ratio] 19.4 % High 11.5 - 15.0 % [facility] Hematocrit (Bld) [Volume fraction] 24.5 % Low 40.0 - 52.0 % [facility] Hemoglobin (Bld) [Mass/Vol] 7.8 g/dL Low 13.0 - 18.0 g/dL [facility] Interpretation and review of laboratory results Abnormal [facility] MCH (RBC) [Entitic mass] 29 pg 26. 0 - 34.0 pg [facility] MCHC (RBC) [Mass/Vol] 31.8 % 30.5 - 36.0 % [facility] MCV (RBC) [Entitic vol] 91.1 fL 77.0 - 99.0 fL [facility] Platelet mean volume (Bld) [Entitic vol] 8.9 fL Low 9.0 - 12.7 fL [facility] Platelets (Bld) [#/Vol] 282 10*3/uL 140 - 440 10*3/uL [facility] RBC (Bld) [#/Vol] 2.69 10*6/uL Low 4.40 - 5.9 0 10*6/uL [facility] WBC (Bld) [#/Vol] 9 10*3/uL 3.6 - 10.7 10*3/uL [facility] COMPREHENSIVE METABOLIC PANE Victor M 02-22-2025 Albumin [Mass/Vol] 1.8 g/dL Low 3.5-5.0 [facility] Comment on above: Performed By: #### Tameka ABRadha, LAB17, [id number] ####[employer] Programmer: DOMENICA JARA ([phone])[facility] ([facility])[address] [place] [address] ALP [Catalytic activity/Vol] 120 U/L Normal 40-150 [facility] Comment on above: Performed By: #### Tameka KWONG, LAB17, [id number] ####[employer] Programmer: DOMENICA JARA ([phone])[facility] ([facility])[address] [place] [address] ALT [Catalytic activity/Vol] 9 U/L Normal <40 [facility] Comment on above: Performed By: #### Tameka KWONG, LAB17, [id number] ####[employer] Programmer: DOMENICA JARA ([phone])[facility] ([facility])[address] [place] [address] Anion gap [Moles/Vol] 13 mmol/L Normal 3-13 [facility] Comment on above: Performed By: #### Tameka KWONG, LAB17, [id number] ####[employer] Programmer: DOMENICA JARA ([phone])[facility] ([facility])[address] [place] [address] AST [Catalytic activity/Vol] 35 U/L High <34 [facility] Comment on above: Performed By: #### Tameka KWONG, LAB17, [id number] ####[employer] Programmer: DOMENICA JARA ([phone])[facility] ([facility])[address] [place] [address] Bilirubin [Mass/Vol] 0.6 mg/dL Normal <1.[address] [facility] Comment on above: Performed By: #### Tameka ABRadha, LAB17, [id number] ####[employer] Programmer: DOMENICA JARA ([phone])[facility] ([facility])[address] [place] [address] Calcium [Mass/Vol] 9.2 mg/dL Normal 8.4-10.2 [facility] Comment on above: Performed By: #### Tameka ABRadha, LAB17, [id number] ####[employer] Programmer: DOMENICA JARA ([phone])[facility] ([facility])[address] [place] [address] Chloride [Moles/Vol] 94 mmol/L Low 98-107 [facility] Comment on above: Performed By: #### Tameka KWONG, LAB17, [id number] ####Asp Net Programmer: DOMENICA JARA ([phone])[facility] ([facility])[address] [place] [address] CO2 [Moles/Vol] 25 mmol/L Normal 22-29 [facility] Comment on above: Performed By: #### Tameka KWONG, LAB17, [id number] ####Asp Net Programmer: DOMENICA JARA ([phone])[facility] ([facility])[address] [place] [address] Creatinine [Mass/Vol] 3.99 mg/dL High 0.72-1.25 [facility] Comment on above: Performed By: #### Tameka KWONG, LAB17, [id number] ####Asp Net Programmer: DOMENICA JARA ([phone])[facility] ([facility])[address] [place] [address] [place] GLOMERULAR FILTRATION RATE ML/MIN/1.73 SQ M.PREDICTED 16.5 mL/min/1.73m*2 Low >60.0 [facility] Comment on above: Result Comment: Calc ulation based on the Chronic Kidney Disease Epidemiology Collaboration (CKD-EPI) equation refit without adjustment for race Performed By: #### Tameka ABRadha, LAB17, [id number] ####Asp Net Programmer: DOMENICA JARA ([phone])[facility] ([facility])[address] [place] [address] [place] Glucose [Mass/Vol] 121 mg/dL High 74-100 [facility] Comment on above: Performed By: #### Tameka AB103, LAB17, [id number] ####Asp Net Programmer: DOMENICA [phone])[facility] [place] [address] Potassium [Moles/Vol] 3.4 mmol/L Low 3.5-5.1 [facility] Comment on above: Result Comment: [facility] potassium values may be up to 0.5 mmol/L lower than serum values. Performed By: #### L AB103, LAB17, [id number] ####Asp Net Programmer: DOMENICA JARA ([phone])[facility] ([facility])[address] [place] [address] Protein [Mass/Vol] 6.7 g/dL Normal 6.4-8.3 [facility] Comment on above: Performed By: #### L AB103, LAB17, [id number] ####Asp Net Programmer: DOMENICA JARA ([phone])[facility] ([facility])[address] [place] [address] Sodium [Moles/Vol] 132 mmol/L Low 136-145 [facility] Comment on above: Performed By: #### Tameka AB103, LAB17, [id number] ####Asp Net Programmer: DOMENICA JARA ([phone])[facility] ([facility])[address] [place] [address] Urea nitrogen [Mass/Vol] 36 mg/dL High 9-23 [facility] Comment on above: Performed By: #### L AB103, LAB17, [id number] ####Asp Net Programmer: DOMENICA JARA ([phone])[facility])[address] [place] [address] Comprehensive metabolic 1998 panelOrdered By: Michelle Olmstead on 02-22-2025 Albumin [Mass/Vol] 1.8 g/dL Low 3.5 - 5.0 g/dL [facility] ALP [Catalytic activity/Vol] 120 U/L 40 - 150 U/L [facility] ALT [Catalytic activity/Vol] 9 U/L NINF - 40 U/L [facility] Anion gap [Moles/Vol] 13 mmol/L 3 - 13 mmol/L [facility] AST [Catalytic activity/Vol] 35 U/L High NINF - 34 U/L [facility] Bilirubin [Mass/Vol] 0.6 mg/dL NINF - 1.2 mg/dL [facility] Calcium [Mass/Vol] 9.2 mg/dL 8.4 - 10. 2 mg/dL [facility] Chloride [Moles/Vol] 94 mmol/L Low 98 - 10 7 mmol/L [facility] CO2 [Moles/Vol] 25 mmol/L 22 - 29 mmol/L [facility] Creatinine [Mass/Vol] 3.99 mg/dL High 0.72 - 1.25 mg/dL [facility] GFR/1.73 sq M.predicted (S/P/Bld) [Vol rate/Area] 16.5 mL/min Low - PINF [facility] Glucose [Mass/Vol] 121 mg/dL High 74 - 100 mg/dL [facility] Interpretation and review of laboratory results Abnormal [facility] Potassium [Moles/Vol] 3.4 mmol/L Low 3.5 - 5.1 mmol/L [facility] Protein [Mass/Vol] 6.7 g/dL 6.4 - 8.3 g/dL [facility] Sodium [Moles/Vol] 132 mmol/L Low 136 - 145 mmol/L [facility] Urea nitrogen [Mass/Vol] 36 mg/dL High 9 - 23 mg/d L [facility] Consulton 02-22-2025 Consult Normal [facility] Consult Normal [facility] Consult Normal [facility] LEGIONELLA AND STREPTOCOCCUS URINE ANTIGENon 02-22-2025 LEGIONELLA AND STREPTOCOCCUS URINE ANTIGEN Normal [facility] Comment on above: Performed By: #### L [id number] ####Asp Net Programmer: DOMENICA JARA ([phone])[facility] ([address] Laboratory - Chemistry and C hemistry - challengeon 02-22-2025 Magnesium [Mass/Vol] 2.2 mg/dL 1.6 - 2 .6 mg/dL [facility] Laboratory - Coagulationon 0 02-22-2025 PT Coag (Bld) [Time] 14.9 s High 9.0 - 12.0 s [facility] Laboratory - Drug toxicology on 02-22-2025 Vancomycin [Mass/Vol] 12.6 ug/mL [facility] MAGNESIUMon 02-22-2025 Magnesium [Mass/Vol] 2.2 mg/dL Normal 1.6-2.6 [facility] Comment on above: Result Comment: ORDE R COMMENTS:Higher values can be expected in females during menses. Performed By: #### L AB103, LAB17, [id number] ####Asp Net Programmer: DOMENICA JARA ([phone])[facility] ([facility])[address] [place] [address] [place] MRSA BY PCRon 02-22-2025 MRSA BY PCR Normal [facility] Comment on above: Performed By: #### L [id number] ####Asp Net Programmer: DOMENICA JARA ([phone])[facility] ([facility])[address] [place] [address] [place] MRSA DNA EMMANUEL+probe Ql (Nose) on 02-22-2025 Interpretation and review of laboratory results Normal [facility] mecA gene Not detected Not Detected [facility] Staphylococcus aureus Not detected Not Detected [facility] Magnesium [Mass/Vol]on 02-22 [facility] No Panel Informationon 02-22 [facility] Interpretation and review of laboratory results Normal [facility] Interpretation and review of laboratory results Abnormal [facility] No Panel InformationOrdered By: Lorin Bryant on 02-22-2025 Interpretation and review of laboratory results Normal [facility] Legionella pneumophila Ag Not detected Not Detected [facility] Streptococcus pneumoniae Ag Not detected Not Detected [facility] Nursing Noteon 02-22-2025 Nursing Note Pt keeps ordering door dash items. Have explained to pt on multiple occasions that staff cannot leave floor to get items and that it is after hours and door dashers most likely will not be allowed up onto the floors. Normal [facility] Nursing Note Normal [facility] Nursing Note Normal [facility] PHOSPHORUSon 02-22-2025 Phosphate [Mass/Vol] 3.2 mg/dL Normal 2.3-4.7 [facility] Comment on above: Performed By: #### L AB103, LAB17, [id number] ####Asp Net Programmer: DOMENICA JARA ([phone])[facility] ([facility])[address] [place] [address] [place] PNEUMONIA PCR PANELon 2024 PNEUMONIA PCR PANEL Normal [facility] Comment on above: Performed By: #### L [id number] ####Asp Net Programmer: DOMENICA JARA ([phone])[facility])[address] [place] [address] PROTHROMBIN TIMEon INR Coag (PPP) [Relative time] 1.4 {INR} High 0.9-1.1 [facility] Comment on above: Result Comment: Vaughn [...] Myocardial Infarction Performed By: #### Tameka AB325, [id number] ####Asp Net Programmer: DOMENICA JARA ([phone])[facility] ([facility])[address] [place] [address] PT Coag (PPP) [Time] 14.9 s High 9.0-12.0 [facility] Comment on above: Performed By: #### L AB325, [id number] ####Asp Net Programmer: DOMENICA JARA ([phone])[facility])[address] [place] [address] PT Coag (Bld) [Time]on 02-22 INR Coag (PPP) [Relative time] 1.4 {INR} High 0.9 - 1.1 [facility] Phosphate [Moles/Vol]on 01-26 Phosphate [Mass/Vol] 3.2 mg/dL 2.3 - 4 .7 mg/dL [facility] Progress Noteon 02-22-2025 Progress Note Normal [facility] Normal [facility] Progress Note Normal [facility] Progress Note OCCUPATIONAL THERAPY [facility] Name/MRN: Jair Snyder ([id number]) Date: 02/22/2025 PT refusing to participate in therapy this AM, will continue to follow and re approach for OT eval. Ro Farnsworth, OT Normal [facility] Progress Note Normal [facility] Progress Note Normal [facility] RESPIRATORY CULTURE AND STAI Non 02-22-2025 RESPIRATORY CULTURE AND STAIN Normal [facility] Comment on above: Performed By: #### L AB900 ####Asp Net Programmer: DOMENICA JARA ([phone])[facility] ([facility])[address] [place] [address] Respiratory pathogens DNA an d RNA panel EMMANUEL+non-probe (Lower resp)Ordered By: Odalys Bustamante on 02-22-2025 Acinetobacter baumannii complex Not detected Not Detected [facility] Adenovirus Not detected Not Detected [facility] Chlamydia pneumoniae Not detected Not Detected [facility] Enterobacter cloacae complex Not detected Not Detected [facility] Escherichia coli Not detected Not Detected [facility] FLUAV RNA EMMANUEL+non-probe Ql (Lower resp) Not detected Not Detected [facility] FLUBV RNA EMMANUEL+non-probe Ql (Lower resp) Not detected Not Detected [facility] Haemophilus influenzae Not detected Not Detecte d [facility] Human Metapneumovirus Not detected Not Detected [facility] Human Rhinovirus/Enterovirus Not detected Not Detected [facility] Interpretation and review of laboratory results Abnormal [facility] Klebsiella (Enterobacter) aerogenes Not detected Not Detected [facility] ealt Klebsiella oxytoca Detected Abnormal Not Detected [facility] Klebsiella pneumoniae Not detected Not Detected [facility] Legionella pneumophila Not detected Not Detecte d [facility] mecA Not detected Not Detected [facility] Moraxella catarrhalis Not detected Not Detected [facility] Mycoplasma pneumoniae Not detected Not Detected [facility] Parainfluenza virus Not detected Not Detected [facility] Proteus spp Not detected Not Detected [facility] lth Pseudomonas aeruginosa Not detected Not Detecte d [facility] RSV RNA EMMANUEL+probe Ql (Resp) Not detected Not Detected [facility] S. agalactiae Org specific cx Ql (Vag fld) Not detected Not Detected [facility] ealth SARS-CoV-2 (COVID-19) RNA EMMANUEL+non-probe Ql (Nph) Not detected Not Detected [facility] Serratia marcescens Not detected Not Detected [facility] Staphylococcus aureus Detected Abnormal Not Detected [facility] Streptococcus pneumoniae Not detected Not Detec yo [facility] Streptococcus pyogenes Not detected Not Detecte d [facility] VANCOMYCIN, RANDOMon 025 VANCOMYCIN 12.6 ug/mL Normal [facility] Comment on above: Result Comment: ARPAN Kaplan COMMENTS:This level is ordered to be drawn 4 hours post- HD. ThanksToxicity is seen at concentrations >80-100 ug/mLTherapeutic (Peak) range: 20-40Therapeutic (Trough) range: 5-10 Performed By: #### L AB40 ####Asp Net Programmer: DOMENICA JARA ([phone])[facility] ([facility])[address] [place] [address] aPTT Coag (Bld) [Time]on aPTT Coag (PPP) [Time] 52.1 s High 20.0 - 30.5 s [facility] Interpretation and review of laboratory results Abnormal [facility] aPTT Coag (PPP) [Time] 54.9 s High 20.0 - 30.5 s [facility] 30on 02-21-2025 30 Normal [facility] [id number] 02-21-2025 [id number] [facility]Tiffanie campbell signed by Kaity Sepulveda RN on 02/21/2025 at 12:54 PM Normal [facility] [id number] Normal [facility] 36on 02-21-2025 36 Normal [facility] APTTon 02-21-2025 aPTT Coag (Bld) [Time] 50.3 s High 20.0-30.5 [facility] Comment on above: Result Comment: ARPAN Kaplan COMMENTS:NOTE: The therapeutic time for Heparin anticoagulation, based on Xa activity inhibition, is an APTT of 46-80 seconds. Performed By: #### L AB325 ####Asp Net Programmer: DOMENICA JARA ([phone])[facility] ([facility])[address] [place] [address] aPTT Coag (Bld) [Time] 32.6 s High 20.0-30.5 [facility] Comment on above: Result Comment: ARPAN Kaplan COMMENTS:NOTE: The therapeutic time for Heparin anticoagulation, based on Xa activity inhibition, is an APTT of 46-80 seconds. Performed By: #### L AB325 ####Asp Net Programmer: DOMENICA JARA ([phone])[facility] ([facility])[address] [place] [address] BLOOD TYPE AND SCREEN GELon 02-21-2025 ABO GROUPING O Normal [facility] Comment on above: Performed By: #### L AB276 ####Asp Net Programmer: DOMENICA JARA ([phone])[facility] ([facility])[address] [place] [address] RH TYPE IN BLOOD Negative Normal [facility] Comment on above: Performed By: #### L AB276 ####Asp Net Programmer: DOMENICA [phone])[facility] ([facility])[address] [place] [address] Blood type and Crossmatch pa freida (Bld)on 02-21-2025 ABO group Nom (Bld) O [facility] Blood group antibody screen GEL Ql Negative [facility] D Ag Ql (RBC) Negative [facility] C-REACTIVE PROTEINon 025 CRP [Mass/Vol] 60.3 mg/L High <5.0 [facility] Comment on above: Performed By: #### L AB149, [id number], LAB17, TZT283, CHI272 ####Asp Net Programmer: DOMENICA JARA ([phone])[facility] ([facility])[address] [place] [address] CBC (HEMOGRAM)on 02-21-2025 Erythrocyte distribution width (RBC) [Ratio] 19.0 % High 11.5-15.0 [facility] Comment on above: Performed By: #### L AB294 ####Asp Net Programmer: DOMENICA [id number])[facility] ([facility])[address] [place] [address] [place] Hematocrit (Bld) [Volume fraction] 25.7 % Low 40.0-52.0 [facility] Comment on above: Performed By: #### L AB294 ####Asp Net Programmer: DOMENICA JARA ([phone])[facility])[address] [place] [address] Hemoglobin (Bld) [Mass/Vol] 8.3 g/dL Low 13.0-18.0 [facility] Comment on above: Performed By: #### L AB294 ####Asp Net Programmer: DOMENICA JARA ([phone])[facility] ([facility])[address] [place] [address] MCH (RBC) [Entitic mass] 29.0 pg Normal 26.0-34.0 [facility] Comment on above: Performed By: #### L AB294 ####Asp Net Programmer: DOMENICA JARA ([phone])[facility])[address] [place] [address] MCHC 32.3 % Normal 30.5-36.0 [facility] Comment on above: Performed By: #### L AB294 ####Asp Net Programmer: DOMENICA JARA ([phone])[facility])[address] [place] [address] MCV (RBC) [Entitic vol] 89.9 fL Normal 77.0-99.0 S [facility] Comment on above: Performed By: #### L AB294 ####Asp Net Programmer: DOMENICA JARA ([phone])[facility])[address] [place] [address] Platelet mean volume (Bld) [Entitic vol] 8.9 fL Low 9.0-12.7 [facility] Comment on above: Performed By: #### L AB294 ####Asp Net Programmer: DOMENICA JARA ([phone])[facility])[address] [place] [address] Platelets (Bld) [#/Vol] 316 10*3/uL Normal 140-440 [facility] Comment on above: Performed By: #### L AB294 ####Asp Net Programmer: DOMENICA JARA ([phone])[facility])[address] [place] [address] RBC (Bld) [#/Vol] 2.86 10*6/uL Low 4.40-5.90 [facility] Comment on above: Performed By: #### L AB294 ####Asp Net Programmer: DOMENICA JARA ([phone])[facility])[address] [place] [address] WBC (Bld) [#/Vol] 7.0 10*3/uL Normal 3.6-10.7 [facility] Comment on above: Performed By: #### L AB294 ####Asp Net Programmer: DOMENICA JARA ([phone])[facility])[address] [place] [address] CBC panel Auto (Bld)on 02-21 Erythrocyte distribution width (RBC) [Ratio] 19 % High 11.5 - 15.0 % [facility] Hematocrit (Bld) [Volume fraction] 25.7 % Low 40.0 - 52.0 % [facility] Hemoglobin (Bld) [Mass/Vol] 8.3 g/dL Low 13.0 - 18.0 g/dL [facility] Interpretation and review of laboratory results Abnormal [facility] MCH (RBC) [Entitic mass] 29 pg 26. 0 - 34.0 pg [facility] MCHC (RBC) [Mass/Vol] 32.3 % 30.5 - 36.0 % [facility] MCV (RBC) [Entitic vol] 89.9 fL 77.0 - 99.0 fL [facility] Platelet mean volume (Bld) [Entitic vol] 8.9 fL Low 9.0 - 12.7 fL [facility] Platelets (Bld) [#/Vol] 316 10*3/uL 140 - 440 10*3/uL [facility] RBC (Bld) [#/Vol] 2.86 10*6/uL Low 4.40 - 5.9 0 10*6/uL [facility] WBC (Bld) [#/Vol] 7 10*3/uL 3.6 - 10.7 10*3/uL [facility] COMPREHENSIVE METABOLIC PANE Victor M 02-21-2025 Albumin [Mass/Vol] 2.0 g/dL Low 3.5-5.0 [facility] Comment on above: Performed By: #### L AB149, [id number], LAB17, LFR986, FQN020 ####Asp Net Programmer: DOMENICA JARA ([phone])[facility] ([facility])[address] [place] [address] ALP [Catalytic activity/Vol] 120 U/L Normal 40-150 [facility] Comment on above: Performed By: #### L AB149, [id number], LAB17, SGV698, JLE788 ####Asp Net Programmer: DOMENICA JARA ([phone])[facility] ([facility])[address] [place] [address] ALT [Catalytic activity/Vol] 8 U/L Normal <40 [facility] Comment on above: Performed By: #### L AB149, [id number], LAB17, YSJ452, WUJ592 ####Asp Net Programmer: DOMENICA JARA ([phone])[facility] ([facility])[address] [place] [address] Anion gap [Moles/Vol] 12 mmol/L Normal 3-13 [facility] Comment on above: Performed By: #### L AB149, [id number], LAB17, FVX460, XDX121 ####Asp Net Programmer: DOMENICA AJRA ([phone])[facility] ([facility])[address] [place] [address] AST [Catalytic activity/Vol] 39 U/L High <34 [facility] Comment on above: Performed By: #### L AB149, [id number], LAB17, ZKV920, OIA700 ####Asp Net Programmer: DOMENICA JARA ([phone])[facility])[address] [place] [address] Bilirubin [Mass/Vol] 0.8 mg/dL Normal <1.[address] [facility] Comment on above: Performed By: #### L AB149, [id number], LAB17, YZK807, HCW224 ####Asp Net Programmer: DOMENICA JARA ([phone])[facility])[address] [place] [address] Calcium [Mass/Vol] 9.3 mg/dL Normal 8.4-10.2 [facility] Comment on above: Performed By: #### L AB149, [id number], LAB17, TYX936, PWP957 ####Asp Net Programmer: DOMENICA JARA ([phone])[facility] ([facility])[address] [place] [address] Chloride [Moles/Vol] 91 mmol/L Low 98-107 [facility] Comment on above: Performed By: #### L AB149, [id number], LAB17, HDD544, COB037 ####Asp Net Programmer: DOMENICA JARA ([phone])[facility])[address] [place] [address] CO2 [Moles/Vol] 28 mmol/L Normal 22-29 [facility] Comment on above: Performed By: #### L AB149, [id number], LAB17, FXF478, LKG988 ####Asp Net Programmer: DOMENICA JARA ([phone])[facility])[address] [place] [address] Creatinine [Mass/Vol] 2.89 mg/dL High 0.72-1.25 [facility] Comment on above: Performed By: #### L AB149, [id number], LAB17, LJH470, CKZ473 ####Asp Net Programmer: DOMENICA JARA ([phone])[facility])[address] [place] [address] GLOMERULAR FILTRATION RATE ML/MIN/1.73 SQ M.PREDICTED 24.3 mL/min/1.73m*2 Low >60.0 [facility] Comment on above: Result Comment: Calc ulation based on the Chronic Kidney Disease Epidemiology Collaboration (CKD-EPI) equation refit without adjustment for race Performed By: #### L AB149, [id number], LAB17, ZRS967, TPN292 ####Asp Net Programmer: DOMENICA JARA ([phone])[facility] ([facility])[address] [place] [address] Glucose [Mass/Vol] 74 mg/dL Normal 74-100 [facility] Comment on above: Performed By: #### L AB149, [id number], LAB17, GYQ323, YXF782 ####Asp Net Programmer: DOMENICA JARA ([phone])[facility])[address] [place] [address] Potassium [Moles/Vol] 3.1 mmol/L Low 3.5-5.1 [facility] Comment on above: Result Comment: [facility] potassium values may be up to 0.5 mmol/L lower than serum values. Performed By: #### L AB149, [id number], LAB17, NLW962, ABF169 ####Asp Net Programmer: DOMENICA JARA ([phone])[facility] ([facility])[address] [place] [address] Protein [Mass/Vol] 6.8 g/dL Normal 6.4-8.3 [facility] Comment on above: Performed By: #### L AB149, [id number], LAB17, HAO673, OGM048 ####Asp Net Programmer: DOMENICA JARA ([phone])[facility] ([facility])[address] [place] [address] Sodium [Moles/Vol] 131 mmol/L Low 136-145 [facility] Comment on above: Performed By: #### L AB149, [id number], LAB17, EJH365, WKQ966 ####Asp [employer] Programmer: DOMENICA JARA ([phone])[facility] ([facility])[address] [place] [address] [place] Urea nitrogen [Mass/Vol] 29 mg/dL High 9-23 [facility] Comment on above: Performed By: #### L AB149, [id number], LAB17, TDX215, KKN017 ####Asp [employer] Programmer: DOMENICA JARA ([phone])[facility] ([facility])[address] [place] [address] [place] CRP [Mass/Vol]on 02-21-2025 Interpretation and review of laboratory results Abnormal [facility] metabolic 1998 panelon 02-21-2025 Albumin [Mass/Vol] 2 g/dL Low 3.5 - 5.0 g/dL [facility] [facility] ALP [Catalytic activity/Vol] 120 U/L 40 - 150 U/L [facility] ALT [Catalytic activity/Vol] 8 U/L NINF - 40 U/L [facility] Anion gap [Moles/Vol] 12 mmol/L 3 - 13 mmol/L [facility] AST [Catalytic activity/Vol] 39 U/L High NINF - 34 U/L [facility] Bilirubin [Mass/Vol] 0.8 mg/dL NINF - 1.2 mg/dL [facility] Calcium [Mass/Vol] 9.3 mg/dL 8.4 - 10. 2 mg/dL [facility] Chloride [Moles/Vol] 91 mmol/L Low 98 - 10 7 mmol/L [facility] CO2 [Moles/Vol] 28 mmol/L 22 - 29 mmol/L [facility] Creatinine [Mass/Vol] 2.89 mg/dL High 0.72 - 1.25 mg/dL [facility] GFR/1.73 sq M.predicted (S/P/Bld) [Vol rate/Area] 24.3 mL/min Low - PINF [facility] Glucose [Mass/Vol] 74 mg/dL 74 - 100 mg/dL [facility] Potassium [Moles/Vol] 3.1 mmol/L Low 3.5 - 5.1 mmol/L [facility] Protein [Mass/Vol] 6.8 g/dL 6.4 - 8.3 g/dL [facility] Sodium [Moles/Vol] 131 mmol/L Low 136 - 145 mmol/L [facility] Urea nitrogen [Mass/Vol] 29 mg/dL High 9 - 23 mg/d L [facility] Consulton 02-21-2025 Consult Normal [facility] Consult Normal [facility] Consult Normal [facility] Consult Normal [facility] Laboratory - Chemistry and C hemistry - challengeon 02-21-2025 CRP [Mass/Vol] 60.3 mg/L High NINF - 5.0 mg/L [facility] Procalcitonin [Mass/Vol] 0.68 ng/mL High PROSPER F - 0.07 ng/mL [facility] Magnesium [Mass/Vol] 2.2 mg/dL 1.6 - 2 .6 mg/dL [facility] MAGNESIUMon 02-21-2025 Magnesium [Mass/Vol] 2.2 mg/dL Normal 1.6-2.6 [facility] Comment on above: Result Comment: ORDE R COMMENTS:Higher values can be expected in females during menses. Performed By: #### L [id number], [id number], LAB17, [id number], [id number] ####[employer] Programmer: DOMENICA JARA ([phone])[facility] ([facility])[address] [place] [address] Magnesium [Mass/Vol]on 02-21 Interpretation and review of laboratory results Normal [facility] No Panel Informationon 02-21 Interpretation and review of laboratory results Abnormal [facility] Nursing Noteon 02-21-2025 Nursing Note Pt ordered [employer] food. Assisted pt to sit up on bedside to eat. Normal [facility] Nursing Note Normal [facility] Nursing Note Pt declining scheduled medications until after RN calls facility to see if he is actively taking those medications" per pt request. This RN spoke with RN at [facility] to verify medications that pt is taking. Normal [facility] Nursing Note Normal [facility] Nursing Note Pt removed NC from nose, stated he doesn't need it anymore. Respiratory Therapy came in to give pt, scheduled breathing treatment, pt stated he didn't need one." Normal [facility] Nursing Note Normal [facility] PHOSPHORUSon 02-21-2025 Phosphate [Mass/Vol] 2.0 mg/dL Low 2.3-4.7 [facility] Comment on above: Performed By: #### L AB149, [id number], LAB17, ATB404, [id number] ####[employer] Programmer: DOMENICA JARA ([phone])[facility] ([facility])[address] [place] [address] PROCALCITONIN TESTon 025 PROCALCITONIN 0.68 ng/mL High <0.07 [facility] Comment on above: Result Comment: ORDE R COMMENTS:PCT <0.50 = Low risk of severe sepsis and/or septic shock.PCT >2.00 = High risk of severe sepsis and/or septic shock. Performed By: #### L AB149, [id number], LAB17, [id number], [id number] ####[employer] Programmer: DOMENICA JARA ([phone])[facility] ([facility])[address] [place] [address] Phosphate [Moles/Vol]on 01-26 Phosphate [Mass/Vol] 2 mg/dL Low 2.3 - 4 .7 mg/dL [facility] Procalcitonin [Mass/Vol]on 0 02-21-2025 Interpretation and review of laboratory results Abnormal [facility] Progress Noteon 02-21-2025 Progress Note PHYSICAL THERAPY [facility] Name/MRN: Jair Snyder ([id number]) Date: 02/21/2025 Pt declined to work with therapy at this time, stating he wanted to eat first. Will reattempt at a later date. Sangeeta Sarabia, PT Normal [facility] Progress Note Normal [facility] Progress Note Normal [facility] RESPIRATORY PATHOGENS PANEL BY PCRon 02-21-2025 RESPIRATORY PATHOGENS PANEL BY PCR Normal [facility] Comment on above: Performed By: #### L [id number] ####[employer] Programmer: DOMENICA JARA ([phone])[facility] ([facility])[address] [place] [address] Respiratory pathogens DNA an d RNA panel EMMANUEL+non-probe (Nph)on 02-21-2025 Adenovirus Not detected Not Detected [facility] B. pertussis DNA EMMANUEL+probe Ql (Unsp spec) Not detected Not Detected [facility] ealt Bordetella parapertussis Not detected Not Detec yo [facility] Chlamydia pneumoniae Not detected Not Detected [facility] Coronavirus 229E Not detected Not Detected [facility] Coronavirus HKU1 Not detected Not Detected [facility] Coronavirus NL63 Not detected Not Detected [facility] Coronavirus OC43 Not detected Not Detected [facility] FLUAV RNA EMMANUEL+non-probe Ql (Nph) Not detected Not Detected [facility] FLUBV RNA EMMANUEL+non-probe Ql (Nph) Not detected Not Detected [facility] Human Metapneumovirus Not detected Not Detected [facility] Human Rhinovirus/Enterovirus Not detected Not Detected [facility] Interpretation and review of laboratory results Normal [facility] Mycoplasma pneumoniae Not detected Not Detected [facility] Parainfluenza 1 Not detected Not Detected [facility] Parainfluenza 2 Not detected Not Detected [facility] Parainfluenza 3 Not detected Not Detected [facility] Parainfluenza 4 Not detected Not Detected [facility] Respiratory Syncytial Virus Not detected Not Detected [facility] SARS-CoV-2 (COVID-19) RNA EMMANUEL+non-probe Ql (Nph) Not detected Not Detected [facility] aPTT Coag (Bld) [Time]on aPTT Coag (PPP) [Time] 50.3 s High 20.0 - 30.5 s [facility] Interpretation and review of laboratory results Abnormal [facility] aPTT Coag (PPP) [Time] 32.6 s High 20.0 - 30.5 s [facility] Interpretation and review of laboratory results Abnormal [facility] Absolute lymphocyte countOrd ered By: Kayley Melendrez on 02-20-2025 Lymphocytes Auto (Unsp spec) [#/Vol] 1.13 10*3/uL 0.83-4.51 [facility] Absolute neutrophil countOrd ered By: Kayley Melendrez on 02-20-2025 Neutrophils (Bld) [#/Vol] 4.6 10*3/uL 2.0-7.7 [facility] Anion gap in Serum or Plasma Ordered By: Kayley Melendrez on 02-20-2025 Anion gap [Moles/Vol] 12 mmol/L 5-15 [facility] Automated lymphocyte count a s percentage of total leukocytesOrdered By: Kayley Melendrez on 02-20-2025 Lymphocytes/100 WBC Auto (Unsp spec) 16.4 % Low 19-41 [facility] BUN/creatinine ratioOrdered By: Kayley Melendrez on 02-20-2025 Urea nitrogen/Creatinine [Mass ratio] 11.5 mg/mg 10-20 [facility] Basic metabolic 1998 panelon 02-20-2025 Anion gap [Moles/Vol] 12 mmol/L 3 - 13 mmol/L [facility] Calcium [Mass/Vol] 9.6 mg/dL 8.4 - 10. 2 mg/dL [facility] Chloride [Moles/Vol] 92 mmol/L Low 98 - 10 7 mmol/L [facility] CO2 [Moles/Vol] 29 mmol/L 22 - 29 mmol/L [facility] Creatinine [Mass/Vol] 2.57 mg/dL High 0.72 - 1.25 mg/dL [facility] GFR/1.73 sq M.predicted (S/P/Bld) [Vol rate/Area] 27.9 mL/min Low - PINF [facility] Glucose [Mass/Vol] 80 mg/dL 74 - 100 mg/dL [facility] Interpretation and review of laboratory results Abnormal [facility] Potassium [Moles/Vol] 3.1 mmol/L Low 3.5 - 5.1 mmol/L [facility] Sodium [Moles/Vol] 133 mmol/L Low 136 - 145 mmol/L [facility] Urea nitrogen [Mass/Vol] 29 mg/dL High 9 - 23 mg/d L [facility] Basophil percentageOrdered B y: Kayley Melendrez on 02-20-2025 Basophils/100 WBC (Bld) 1.4 % High 0-1 [facility] Bilirubin, totalOrdered By: Kayley Melendrez on 02-20-2025 Bilirubin [Mass/Vol] 0.64 mg/dL 0.00-1.30 [facility] CBC W/Diff, Automatedon 01-26 Absolute Lymph 1.13 X10 3/uL Normal 0.83-4.51 [facility] Comment on above: Order Comment: 412.2 Performed By: #### L 100.0100, L300.3900, [id number] #### [facility] [address] [place], [address] Absolute Neut 4.6 X10 3/uL Normal 2.0-7.7 [facility] Comment on above: Order Comment: 412.2 Performed By: #### L 100.0100, L300.3900, [id number] #### [facility] [address] [place], [address] Basophils/100 WBC (Bld) 1.4 % High 0-1 [facility] Comment on above: Order Comment: 412.2 Performed By: #### L 100.0100, L300.3900, [id number] #### [facility] [address] [place], [address] Eosinophils/100 WBC (Bld) 2.5 % Normal 0-5 [facility] Comment on above: Order Comment: 412.2 Performed By: #### L 100.0100, L300.3900, [id number] #### [facility] [address] [place], [address] Erythrocyte distribution width (RBC) [Ratio] 19.4 % High 11.6-14.6 [facility] Comment on above: Order Comment: 412.2 Performed By: #### L 100.0100, [id number], [id number] #### [facility] [address] [place], [address] Hematocrit (Bld) [Volume fraction] 25.9 % Low 40-54 [facility] Comment on above: Order Comment: 412.2 Performed By: #### L 100.0100, [id number], [id number] #### [facility] [address] [place], [address] Hemoglobin (Bld) [Mass/Vol] 8.5 g/dL Low 13.0-16.5 [facility] Comment on above: Order Comment: 412.2 Performed By: #### L 100.0100, [id number], [id number] #### [facility] [address] [place], [address] IG% 0.400 Normal 0.0-0.9 [facility] Comment on above: Order Comment: 412.2 Result Comment: IG% - Immature Granulocytes (promyelocytes, myelocytes and metamyelocytes) > 1% indicates that a LEFT SHIFT is Present. Performed By: #### L 100.0100, L300.3900, [id number] #### [facility] [address] [place], [address] Lymphocytes/100 WBC (Bld) 16.4 % Low 19-41 [facility] Comment on above: Order Comment: 412.2 Performed By: #### L 100.0100, [id number], [id number] #### [facility] [address] [place], [address] MCH (RBC) [Entitic mass] 30.1 pg Normal 27.0-32.0 [facility] Comment on above: Order Comment: 412.2 Performed By: #### L 100.0100, [id number], [id number] #### [facility] [address] [place], [address] MCHC (RBC) [Mass/Vol] 32.8 g/dL Normal 32-36 [facility] Comment on above: Order Comment: 412.2 Performed By: #### L 100.0100, [id number], [id number] #### [facility] [address] [place], [address] MCV (RBC) [Entitic vol] 91.8 fL Normal 80-94 [facility] Comment on above: Order Comment: 412.2 Performed By: #### L 100.0100, [id number], [id number] #### [facility] [address] [place], [address] Monocytes/100 WBC (Bld) 12.0 % High 0-10 [facility] Comment on above: Order Comment: 412.2 Performed By: #### L 100.0100, [id number], [id number] #### [facility] [address] [place], [address] Neutrophils/100 WBC (Bld) 67.3 % Normal 47-70 [facility] Comment on above: Order Comment: 412.2 Performed By: #### L 100.0100, [id number], [id number] #### [facility] [address] [place], [address] Nucleated RBC (Bld) [#/Vol] 0 10*3/uL Normal 0-5 [facility] Comment on above: Order Comment: 412.2 Performed By: #### L 100.0100, [id number], [id number] #### [facility] [address] [place], [address] Platelet mean volume (Bld) [Entitic vol] 9.0 fL Normal 6.2-12.0 [facility] Comment on above: Order Comment: 412.2 Performed By: #### L 100.0100, [id number], [id number] #### [facility] [address] [place], [address] Platelets (Bld) [#/Vol] 322 10*3/uL Normal 150-450 [facility] Comment on above: Order Comment: 412.2 Performed By: #### L 100.0100, [id number], [id number] #### [facility] [address] [place], [address] RBC (Bld) [#/Vol] 2.82 10*6/uL Low 4.6-6.2 [facility] Comment on above: Order Comment: 412.2 Performed By: #### L 100.0100, [id number], [id number] #### [facility] [address] [place], [address] RDW SD 63.5 fl High 35.1-43.9 [facility] Comment on above: Order Comment: 412.2 Performed By: #### L 100.0100, [id number], [id number] #### [facility] [address] [place], [address] WBC (Bld) [#/Vol] 6.9 10*3/uL Normal 4.4-11.0 [facility] Comment on above: Order Comment: 412.2 Performed By: #### L 100.0100, [id number], [id number] #### [facility] [address] [place], [address] CBC panel Auto (Bld)on 02-20 Erythrocyte distribution width (RBC) [Ratio] 18.8 % High 11.5 - 15.0 % [facility] Hematocrit (Bld) [Volume fraction] 26.8 % Low 40.0 - 52.0 % [facility] Hemoglobin (Bld) [Mass/Vol] 8.7 g/dL Low 13.0 - 18.0 g/dL [facility] Interpretation and review of laboratory results Abnormal [facility] MCH (RBC) [Entitic mass] 28.7 pg 26. 0 - 34.0 pg [facility] MCHC (RBC) [Mass/Vol] 32.5 % 30.5 - 36.0 % [facility] MCV (RBC) [Entitic vol] 88.4 fL 77.0 - 99.0 fL [facility] Platelet mean volume (Bld) [Entitic vol] 8.5 fL Low 9.0 - 12.7 fL [facility] Platelets (Bld) [#/Vol] 312 10*3/uL 140 - 440 10*3/uL [facility] RBC (Bld) [#/Vol] 3.03 10*6/uL Low 4.40 - 5.9 0 10*6/uL [facility] WBC (Bld) [#/Vol] 9.4 10*3/uL 3.6 - 10.7 10*3/uL [facility] CTA Chest vessels WO and W c ontrast Dimitrios 02-20-2025 [facility] Radiology Study observation (narrative) [facility] CTA Chest vessels WO and W c ontrast IVOrdered By: Justo Milan on 02-20-2025 [employer] Phone: Carbon dioxide, total [Moles /volume] in Central venous bloodOrdered By: Kayley Melendrez on 02-20-2025 CO2 [Moles/Vol] 30.1 mmol/L 21.0-32.0 [facility] Chloride assayOrdered By: Carmen Melendrez on 02-20-2025 Chloride [Moles/Vol] 91 mmol/L Low 98-108 [facility] Comprehensive Metabolic Prof ilon 02-20-2025 Albumin [Mass/Vol] 3.0 g/dL Low 3.5-5.0 [facility] Comment on above: Order Comment: 412.2 Performed By: #### L 100.0100, [id number], [id number] #### [facility] [address] [place], [address] Albumin/Globulin [Mass ratio] 0.8 {ratio} Low 0.9-2.4 [facility] Comment on above: Order Comment: 412.2 Performed By: #### L 100.0100, [id number], [id number] #### [facility] [address] [place], [address] ALK PHOS 133 U/L High 40-129 [facility] Comment on above: Order Comment: 412.2 Performed By: #### L 100.0100, [id number], [id number] #### [facility] [address] [place], [address] ALT [Catalytic activity/Vol] 13 U/L Normal <=46 [facility] Comment on above: Order Comment: 412.2 Performed By: #### L 100.0100, [id number], [id number] #### [facility] [address] [place], [address] AST [Catalytic activity/Vol] 32 U/L Normal <=37 [facility] Comment on above: Order Comment: 412.2 Performed By: #### L 100.0100, [id number], [id number] #### [facility] [address] [place], [address] Bilirubin [Mass/Vol] 0.64 mg/dL Normal 0.00-1.30 [facility] Comment on above: Order Comment: 412.2 Performed By: #### L 100.0100, [id number], [id number] #### [facility] [address] [place], [address] BUN/CRE 11.5 RATIO Normal 10-20 [facility] Comment on above: Order Comment: 412.2 Performed By: #### L 100.0100, [id number], [id number] #### [facility] [address] [place], [address] Calcium [Mass/Vol] 9.8 mg/dL Normal 7.6-11.0 [facility] Comment on above: Order Comment: 412.2 Performed By: #### L 100.0100, [id number], [id number] #### [facility] [address] [place], [address] Chloride [Moles/Vol] 91 mmol/L Low 98-108 [facility] Comment on above: Order Comment: 412.2 Performed By: #### L 100.0100, [id number], [id number] #### [facility] [address] [place], [address] CO2 [Moles/Vol] 30.1 mmol/L Normal 21.0-32.0 [facility] Comment on above: Order Comment: 412.2 Performed By: #### L 100.0100, [id number], [id number] #### [facility] [address] [place], [address] Creatinine [Mass/Vol] 3.87 mg/dL High 0.70-1.20 [facility] Comment on above: Order Comment: 412.2 Performed By: #### L 100.0100, [id number], [id number] #### [facility] [address] [place], [address] GAP 12 Normal 5-15 [facility] Comment on above: Order Comment: 412.2 Performed By: #### L 100.0100, [id number], [id number] #### [facility] [address] [place], [address] GFR/1.73 sq M.predicted among non-blacks MDRD (S/P/Bld) [Vol rate/Area] 17 mL/min/{1.73_m2} Low >60 [facility] Comment on above: Order Comment: 412.2 Result Comment: mL/m in/1.73m2 CKD-EPI Creatinine Equation (2020) Performed By: #### L 100.0100, L300.3900, [id number] #### [facility] [address] [place], [address] Globulin (S) [Mass/Vol] 4.0 g/dL Normal 2.2-4.2 [facility] Comment on above: Order Comment: 412.2 Performed By: #### L 100.0100, [id number], [id number] #### [facility] [address] [place], [address] Glucose [Mass/Vol] 78 mg/dL Normal 70-99 [facility] Comment on above: Order Comment: 412.2 Performed By: #### L 100.0100, [id number], [id number] #### [facility] [address] [place], [address] Potassium [Moles/Vol] 3.0 mmol/L Low 3.3-5.1 [facility] Comment on above: Order Comment: 412.2 Performed By: #### L 100.0100, [id number], [id number] #### [facility] [address] [place], [address] Sodium [Moles/Vol] 134 mmol/L Normal 133-145 [facility] Comment on above: Order Comment: 412.2 Performed By: #### L 100.0100, [id number], [id number] #### [facility] [address] [place], [address] T PROT 6.9 g/dL Normal 5.9-8.4 [facility] Comment on above: Order Comment: 412.2 Performed By: #### L 100.0100, [id number], [id number] #### [facility] [address] [place], [address] Urea nitrogen [Mass/Vol] 44 mg/dL High 4-19 [facility] Comment on above: Order Comment: 412.2 Performed By: #### L 100.0100, [id number], [id number] #### [facility] [address] [place], [address] Eosinophil percentageOrdered By: Kayley Melendrez on 02-20-2025 Eosinophils/100 WBC (Bld) 2.5 % 0-5 [facility] Erythrocyte distribution wid th ratioOrdered By: Kayley Melendrez on 02-20-2025 Erythrocyte distribution width (RBC) [Ratio] 19.4 % High 11.6-14.6 [facility] Erythrocyte distribution wid th standard deviationOrdered By: Kayley Melendrez on 02-20-2025 Erythrocyte distribution width (RBC) [Ratio] 63.5 fl High 35.1-43.9 [facility] Glomerular filtration rate ( GFR) estimation/1.73 sq m using serum, plasma, or whole bOrdered By: Kayley Melendrez on 02-20-2025 GFR/1.73 sq M.predicted among non-blacks MDRD (S/P/Bld) [Vol rate/Area] 17 mL/min/{1.73_m2} Low >60 [facility] Comment on above: mL/min/1.73m2 CKD-EP I Creatinine Equation (2020) Hematocrit Auto (Bld) [Volum e fraction]Ordered By: Kayley Melendrez on 02-20-2025 Hematocrit (Bld) [Volume fraction] 25.9 % Low 40-54 [facility] Hemoglobin measurementOrdere d By: Kayley Melendrez on 02-20-2025 Hemoglobin (Bld) [Mass/Vol] 8.5 g/dL Low 13.0-16.5 [facility] Immature granulocytes/100 WB C Auto (Bld)Ordered By: Kayley Melendrez on 02-20-2025 Immature granulocytes/100 WBC (Bld) 0.400 % 0.0-0.9 [facility] Comment on above: IG% - Immature Granu locytes (promyelocytes, myelocytes and metamyelocytes) > 1% indicates that a LEFT SHIFT is Present. International normalized rat io (INR) calculationOrdered By: Kayley Melendrez on 02-20-2025 INR Coag (Bld) [Relative time] 1.4 {INR} [facility] - Chemistry and C hemistry - challengeOrdered By: Kayley Melendrez on 02-20-2025 AST [Catalytic activity/Vol] 32 U/L <38 [facility] - Coagulationon 0 02-20-2025 PT Coag (Bld) [Time] 14.7 s High 9.0 - 12.0 s [facility] MCV (mean corpuscular volume ) determinationOrdered By: Kayley Melendrez on 02-20-2025 MCV (RBC) [Entitic vol] 91.8 fL 80-94 [facility] Mean corpuscular hemoglobin (MCH) determinationOrdered By: Kayley Melendrez on 02-20-2025 MCH (RBC) [Entitic mass] 30.1 pg 27.0-32.0 [facility] Mean corpuscular hemoglobin concentration (MCHC) determinationOrdered By: Kayley Melendrez on 02-20-2025 MCHC (RBC) [Mass/Vol] 32.8 g/dL 32-36 [facility] Mean platelet volume determi nationOrdered By: Kayley Melendrez on 02-20-2025 Platelet mean volume (Bld) [Entitic vol] 9.0 fL 6.2-12.0 [facility] Monocyte percentageOrdered B y: Kayley Melendrez on 02-20-2025 Monocytes/100 WBC (Bld) 12.0 % High 0-10 [facility] Neutrophil percentageOrdered By: Kayley Melendrez on 02-20-2025 Neutrophils/100 WBC (Bld) 67.3 % 47-70 [facility] No Panel Informationon 02-20 [facility] Nucleated red blood cell per centageOrdered By: Kayley Melendrez on 02-20-2025 Nucleated RBC/100 WBC (Bld) [Ratio] 0 % 0-5 [facility] PT Coag (Bld) [Time]on 02-20 INR Coag (PPP) [Relative time] 1.4 {INR} High 0.9 - 1.1 [facility] Interpretation and review of laboratory results Abnormal [facility] Platelet countOrdered By: Carmen Melendrez on 02-20-2025 Platelets (Bld) [#/Vol] 322 10*3/uL 150-450 [facility] Potassium measurement (mass/ volume)Ordered By: Kayley Melendrez on 02-20-2025 Potassium (Unsp spec) [Mass/Vol] 3.0 mmol/L Low 3.3-5.1 [facility] Prothrombin Time w/INRon INR Coag (PPP) [Relative time] 1.4 {INR} Normal [facility] Comment on above: Order Comment: 412.2 Performed By: #### L 100.0100, L300.3900, [id number] #### [facility] [place], [address] PT Coag (PPP) [Time] 17.5 s High 11.7-14.9 [facility] Comment on above: Order Comment: 412.2 Performed By: #### L 100.0100, L300.3900, [id number] #### [facility] [address] [place], [address] Prothrombin timeOrdered By: Kayley Melendrez on 02-20-2025 PT Coag (PPP) [Time] 17.5 s High 11.7-14.9 [facility] RBC Auto (Bld) [#/Vol]Ordere d By: Kayley Melendrez on 02-20-2025 RBC (Bld) [#/Vol] 2.82 10*6/uL Low 4.6-6.2 [facility] Serum creatinine measurement (mass/volume)Ordered By: Kayley Melendrez on 02-20-2025 Creatinine [Mass/Vol] 3.87 mg/dL High 0.70-1.20 [facility] Serum globulin measurementOr dered By: Kayley Melendrez on 02-20-2025 Globulin (S) [Mass/Vol] 4.0 g/dL 2.2-4.2 [facility] Serum glucose measurement (m ass/volume)Ordered By: Kayley Melendrez on 02-20-2025 Glucose [Mass/Vol] 78 mg/dL 70-99 [facility] Serum or plasma alanine mayorga otransferase (ALT) measurementOrdered By: Kayley Melendrez on 02-20-2025 ALT [Catalytic activity/Vol] 13 U/L <47 [facility] Serum or plasma albumin audrey urement (mass/volume)Ordered By: Kayley Melendrez on 02-20-2025 Albumin [Mass/Vol] 3.0 g/dL Low 3.5-5.0 [facility] Serum or plasma albumin/glob ulin mass ratioOrdered By: Kayley Melendrez on 02-20-2025 Albumin/Globulin [Mass ratio] 0.8 {ratio} Low 0.9-2.4 [facility] Serum or plasma alkaline jacob sphatase measurementOrdered By: Kayley Melendrez on 02-20-2025 ALP [Catalytic activity/Vol] 133 U/L High 40-129 [facility] Serum or plasma calcium audrey urement (mass/volume)Ordered By: Kayley Melendrez on 02-20-2025 Calcium [Mass/Vol] 9.8 mg/dL 7.6-11.0 [facility] Serum or plasma urea nitroge n measurement (mass/volume)Ordered By: Kayley Melendrez on 02-20-2025 Urea nitrogen [Mass/Vol] 44 mg/dL High 4-19 [facility] Sodium levelOrdered By: Omega Melendrez on 02-20-2025 Sodium [Moles/Vol] 134 mmol/L 133-145 [facility] Total proteinOrdered By: Lexis Melendrez on 02-20-2025 Protein [Mass/Vol] 6.9 g/dL 5.9-8.4 [facility] White blood cell (WBC) count Ordered By: Kayley Melendrez on 02-20-2025 WBC (Bld) [#/Vol] 6.9 10*3/uL 4.4-11.0 [facility] aPTT Coag (Bld) [Time]on aPTT Coag (PPP) [Time] 26.2 s 20.0 - 30.5 s [facility] Interpretation and review of laboratory results Normal [facility] International normalized rat io (INR) calculationOrdered By: Kayley Melendrez on 02-15-2025 INR Coag (Bld) [Relative time] 1.3 {INR} [facility] Prothrombin Time w/INRon INR Coag (PPP) [Relative time] 1.3 {INR} Normal [facility] Comment on above: Order Comment: 412.2 Performed By: #### L 100.0100, L300.3900, [id number] #### [facility] [address] [place], [address] PT Coag (PPP) [Time] 16.6 s High 11.7-14.9 [facility] Comment on above: Order Comment: 412.2 Performed By: #### L 100.0100, L300.3900, [id number] #### [facility] [address] [place], [address] Prothrombin timeOrdered By: Kayley Melendrez on 02-15-2025 PT Coag (PPP) [Time] 16.6 s High 11.7-14.9 [facility] International normalized rat io (INR) measurement by fingerstickOrdered By: Kayley Melendrez on 02-13-2025 INR Coag (BldC) [Relative time] 1.7 [facility] Comment on above: Critical Value > 4.0 Protime w/INR Fingerstickon 02-13-2025 INR Coag (PPP) [Relative time] 1.7 {INR} Normal [facility] Comment on above: Result Comment: Crit ical Value > 4.0 Performed By: #### L 9200.0000 #### [facility] [address] [place], [place], [id number] Protime Coagsen 19.1 SEC High 11.7-14.9 [facility] Comment on above: Performed By: #### L 9200.0000 #### [facility] [address] [place], [place], [id number] Whole blood prothrombin time Ordered By: Kayley Melendrez on 02-13-2025 PT Coag (Bld) [Time] 19.1 s High 11.7-14.9 [facility] Absolute lymphocyte countOrd ered By: Kayley Melendrez on 02-12-2025 Lymphocytes Auto (Unsp spec) [#/Vol] 1.29 10*3/uL 0.83-4.51 [facility] Absolute neutrophil countOrd ered By: Kayley Melendrez on 02-12-2025 Neutrophils (Bld) [#/Vol] 4.7 10*3/uL 2.0-7.7 [facility] Anion gap in Serum or Plasma Ordered By: [facility] Mel[facility] on 02-12-2025 Anion gap [Moles/Vol] 12 mmol/L 5-15 [facility] Automated lymphocyte count a s percentage of total leukocytesOrdered By: Kayley Melendrez on 02-12-2025 Lymphocytes/100 WBC Auto (Unsp spec) 17.7 % Low - [facility] BUN/creatinine ratioOrdered By: [facility] Mel[facility] on 02-12-2025 Urea nitrogen/Creatinine [Mass ratio] 10.3 mg/mg 10- [facility] Basophil percentageOrdered B y: [facility] Mel[facility] on 02-12-2025 Basophils/100 WBC (Bld) 1.1 % High 0-1 [facility] Bilirubin, totalOrdered By: [facility] Melendrez on 02-12-2025 Bilirubin [Mass/Vol] 0.69 mg/dL 0.00-1.30 [facility] CBC W/Diff, Automatedon 01-25 Absolute Lymph 1.29 X10 3/uL Normal 0.83-4.51 [facility] Comment on above: Performed By: #### L 100.0100, L300.3900, [id number] #### [facility] [address] [place], [address] Absolute Neut 4.7 X10 3/uL Normal 2.0-7.7 [facility] Comment on above: Performed By: #### L 100.0100, L300.3900, [id number] #### [facility] [address] [place], [address] Basophils/100 WBC (Bld) 1.1 % High 0-1 [facility] Comment on above: Performed By: #### L 100.0100, L300.3900, [id number] #### [facility] [address] [place], [address] Eosinophils/100 WBC (Bld) 4.7 % Normal 0-5 [facility] Comment on above: Performed By: #### L 100.0100, L300.3900, [id number] #### [facility] [address] [place], [address] Erythrocyte distribution width (RBC) [Ratio] 18.3 % High 11.6-14.6 [facility] Comment on above: Performed By: #### L 100.0100, L300.3900, [id number] #### [facility] [address] [place], [address] Hematocrit (Bld) [Volume fraction] 24.6 % Low 40-54 [facility] Comment on above: Performed By: #### L 100.0100, L300.3900, [id number] #### [facility] [address] [place] [place], [address] Hemoglobin (Bld) [Mass/Vol] 8.0 g/dL Low 13.0-16.5 [facility] Comment on above: Performed By: #### L 100.0100, L300.3900, [id number] #### [facility] [address] [place], [address] IG% 0.500 Normal 0.0-0.9 [facility] Comment on above: Result Comment: IG% - Immature Granulocytes (promyelocytes, myelocytes and metamyelocytes) > 1% indicates that a LEFT SHIFT is Present. Performed By: #### L 100.0100, L300.3900, [id number] #### [facility] [address] [place], [address] Lymphocytes/100 WBC (Bld) 17.7 % Low 19-41 [facility] Comment on above: Performed By: #### L 100.0100, L300.3900, [id number] #### [facility] [address] [place], [address] MCH (RBC) [Entitic mass] 29.3 pg Normal 27.0-32.0 [facility] Comment on above: Performed By: #### L 100.0100, L300.3900, [id number] #### [facility] [address] [place], [address] MCHC (RBC) [Mass/Vol] 32.5 g/dL Normal 32-36 [facility] Comment on above: Performed By: #### L 100.0100, L300.3900, [id number] #### [facility] [address] [place], [address] MCV (RBC) [Entitic vol] 90.1 fL Normal 80-94 [facility] Comment on above: Performed By: #### L 100.0100, L300.3900, [id number] #### [facility] [address] [place], [address] Monocytes/100 WBC (Bld) 11.9 % High 0-10 [facility] Comment on above: Performed By: #### L 100.0100, L300.3900, [id number] #### [facility] [address] [place], [address] Neutrophils/100 WBC (Bld) 64.1 % Normal 47-70 [facility] Comment on above: Performed By: #### L 100.0100, L300.3900, [id number] #### [facility] [address] [place], [address] Nucleated RBC (Bld) [#/Vol] 0 10*3/uL Normal 0-5 [facility] Comment on above: Performed By: #### L 100.0100, L300.3900, [id number] #### [facility] [address] [place], [address] Platelet mean volume (Bld) [Entitic vol] 9.2 fL Normal 6.2-12.0 [facility] Comment on above: Performed By: #### L 100.0100, L300.3900, [id number] #### [facility] [address] [place], [address] Platelets (Bld) [#/Vol] 294 10*3/uL Normal 150-450 [facility] Comment on above: Performed By: #### L 100.0100, L300.3900, [id number] #### [facility] [address] [place], [address] RBC (Bld) [#/Vol] 2.73 10*6/uL Low 4.6-6.2 [facility] Comment on above: Performed By: #### L 100.0100, L300.3900, [id number] #### [facility] [address] [place], [address] RDW SD 59.4 fl High 35.1-43.9 [facility] Comment on above: Performed By: #### L 100.0100, [id number], [id number] #### [facility] [address] [place], [address] WBC (Bld) [#/Vol] 7.3 10*3/uL Normal 4.4-11.0 [facility] Comment on above: Performed By: #### L 100.0100, L300.3900, [id number] #### [facility] [address] [place], [address] Carbon dioxide, total [Moles /volume] in Central venous bloodOrdered By: Kayley Melendrez on 02-12-2025 CO2 [Moles/Vol] 28.4 mmol/L 21.0-32.0 [facility] Chloride assayOrdered By: Carmen Melendrez on 02-12-2025 Chloride [Moles/Vol] 91 mmol/L Low 98-108 [facility] Comprehensive Metabolic Prof ilon 02-12-2025 Albumin [Mass/Vol] 2.9 g/dL Low 3.5-5.0 [facility] Comment on above: Performed By: #### L 300.3900 #### [facility] [address] [place], [address] Albumin/Globulin [Mass ratio] 0.7 {ratio} Low 0.9-2.4 [facility] Comment on above: Performed By: #### L 300.3900 #### [facility] [address] [place], [address] ALK PHOS 177 U/L High 40-129 [facility] Comment on above: Performed By: #### L 300.3900 #### [facility] [address] [place], [address] ALT [Catalytic activity/Vol] 9 U/L Normal <=46 [facility] Comment on above: Performed By: #### L 300.3900 #### [facility] [address] [place], [address] AST [Catalytic activity/Vol] 34 U/L Normal <=37 [facility] Comment on above: Performed By: #### L 300.3900 #### [facility] [address] [place], [address] Bilirubin [Mass/Vol] 0.69 mg/dL Normal 0.00-1.30 [facility] Comment on above: Performed By: #### L 300.3900 #### [facility] [address] [place], [address] BUN/CRE 10.3 RATIO Normal 10-20 [facility] Comment on above: Performed By: #### L 300.3900 #### [facility] [address] [place], [address] Calcium [Mass/Vol] 9.9 mg/dL Normal 7.6-11.0 [facility] Comment on above: Performed By: #### L 300.3900 #### [facility] [address] [place], [address] Chloride [Moles/Vol] 91 mmol/L Low 98-108 [facility] Comment on above: Performed By: #### L 300.3900 #### [facility] [address] [place], [address] CO2 [Moles/Vol] 28.4 mmol/L Normal 21.0-32.0 [facility] Comment on above: Performed By: #### L 300.3900 #### [facility] [address] [place], [address] Creatinine [Mass/Vol] 4.17 mg/dL High 0.70-1.20 [facility] Comment on above: Performed By: #### L 300.3900 #### [facility] [address] [place], [address] GAP 12 Normal 5-15 [facility] Comment on above: Performed By: #### L 300.3900 #### [facility] [address] [place], [address] GFR/1.73 sq M.predicted among non-blacks MDRD (S/P/Bld) [Vol rate/Area] 16 mL/min/{1.73_m2} Low >60 [facility] Comment on above: Result Comment: mL/m in/1.73m2 CKD-EPI Creatinine Equation (2020) Performed By: #### L 300.3900 #### [facility] [address] [place], [address] Globulin (S) [Mass/Vol] 4.2 g/dL Normal 2.2-4.2 [facility] Comment on above: Performed By: #### L 300.3900 #### [facility] [address] [place], [address] Glucose [Mass/Vol] 77 mg/dL Normal 70-99 [facility] Comment on above: Performed By: #### L 300.3900 #### [facility] [address] [place], [address] Potassium [Moles/Vol] 3.2 mmol/L Low 3.3-5.1 [facility] Comment on above: Performed By: #### L 300.3900 #### [facility] [address] [place], [address] Sodium [Moles/Vol] 131 mmol/L Low 133-145 [facility] Comment on above: Performed By: #### L 300.3900 #### [facility] [address] [place], [address] T PROT 7.1 g/dL Normal 5.9-8.4 [facility] Comment on above: Performed By: #### L 300.3900 #### [facility] [address] [place], [address] Urea nitrogen [Mass/Vol] 43 mg/dL High 4-19 [facility] Comment on above: Performed By: #### L 300.3900 #### [facility] [address] [place], [address] Eosinophil percentageOrdered By: Kayley Melendrez on 02-12-2025 Eosinophils/100 WBC (Bld) 4.7 % 0-5 [facility] Erythrocyte distribution wid th ratioOrdered By: Kayley Melendrez on 02-12-2025 Erythrocyte distribution width (RBC) [Ratio] 18.3 % High 11.6-14.6 [facility] Erythrocyte distribution wid th standard deviationOrdered By: Kayley Melendrez on 02-12-2025 Erythrocyte distribution width (RBC) [Ratio] 59.4 fl High 35.1-43.9 [facility] Glomerular filtration rate ( GFR) estimation/1.73 sq m using serum, plasma, or whole bOrdered By: Kayley Melendrez on 02-12-2025 GFR/1.73 sq M.predicted among non-blacks MDRD (S/P/Bld) [Vol rate/Area] 16 mL/min/{1.73_m2} Low >60 [facility] Comment on above: mL/min/1.73m2 CKD-EP I Creatinine Equation (2020) Hematocrit Auto (Bld) [Volum e fraction]Ordered By: Kayley Melendrez on 02-12-2025 Hematocrit (Bld) [Volume fraction] 24.6 % Low 40-54 [facility] Hemoglobin measurementOrdere d By: Kayley Melendrez on 02-12-2025 Hemoglobin (Bld) [Mass/Vol] 8.0 g/dL Low 13.0-16.5 [facility] Immature granulocytes/100 WB C Auto (Bld)Ordered By: Kayley Melendrez on 02-12-2025 Immature granulocytes/100 WBC (Bld) 0.500 % 0.0-0.9 [facility] Comment on above: IG% - Immature Granu locytes (promyelocytes, myelocytes and metamyelocytes) > 1% indicates that a LEFT SHIFT is Present. International normalized rat io (INR) calculationOrdered By: Kayley Melendrez on 02-12-2025 INR Coag (Bld) [Relative time] 1.5 {INR} [facility] - Chemistry and C hemistry - challengeOrdered By: Kayley Melendrez on 02-12-2025 AST [Catalytic activity/Vol] 34 U/L <38 [facility] MCV (mean corpuscular volume ) determinationOrdered By: Kayley Melendrez on 02-12-2025 MCV (RBC) [Entitic vol] 90.1 fL 80-94 [facility] Mean corpuscular hemoglobin (MCH) determinationOrdered By: Kayley Melendrez on 02-12-2025 MCH (RBC) [Entitic mass] 29.3 pg 27.0-32.0 [facility] Mean corpuscular hemoglobin concentration (MCHC) determinationOrdered By: Kayley Melendrez on 02-12-2025 MCHC (RBC) [Mass/Vol] 32.5 g/dL 32-36 [facility] Mean platelet volume determi nationOrdered By: Kayley Melendrez on 02-12-2025 Platelet mean volume (Bld) [Entitic vol] 9.2 fL 6.2-12.0 [facility] Monocyte percentageOrdered B y: Kayley Melendrez on 02-12-2025 Monocytes/100 WBC (Bld) 11.9 % High 0-10 [facility] Neutrophil percentageOrdered By: Kayley Melendrez on 02-12-2025 Neutrophils/100 WBC (Bld) 64.1 % 47-70 [facility] Nucleated red blood cell per centageOrdered By: Kayley Melendrez on 02-12-2025 Nucleated RBC/100 WBC (Bld) [Ratio] 0 % 0-5 [facility] Platelet countOrdered By: Carmen Melendrez on 02-12-2025 Platelets (Bld) [#/Vol] 294 10*3/uL 150-450 [facility] Potassium measurement (mass/ volume)Ordered By: Kayley Melendrez on 02-12-2025 Potassium (Unsp spec) [Mass/Vol] 3.2 mmol/L Low 3.3-5.1 [facility] Prothrombin Time w/INRon INR Coag (PPP) [Relative time] 1.5 {INR} Normal [facility] Comment on above: Performed By: #### L 300.3900 #### [facility] [address] [place], [address] PT Coag (PPP) [Time] 17.9 s High 11.7-14.9 [facility] Comment on above: Performed By: #### L 300.3900 #### [facility] [address] [place], [address] Prothrombin timeOrdered By: Kayley Melendrez on 02-12-2025 PT Coag (PPP) [Time] 17.9 s High 11.7-14.9 [facility] RBC Auto (Bld) [#/Vol]Ordere d By: Kayley Melendrez on 02-12-2025 RBC (Bld) [#/Vol] 2.73 10*6/uL Low 4.6-6.2 [facility] Serum creatinine measurement (mass/volume)Ordered By: Kayley Melendrez on 02-12-2025 Creatinine [Mass/Vol] 4.17 mg/dL High 0.70-1.20 [facility] Serum globulin measurementOr dered By: Kayley Melendrez on 02-12-2025 Globulin (S) [Mass/Vol] 4.2 g/dL 2.2-4.2 [facility] Serum glucose measurement (m ass/volume)Ordered By: Kayley Melendrez on 02-12-2025 Glucose [Mass/Vol] 77 mg/dL 70-99 [facility] Serum or plasma alanine mayorga otransferase (ALT) measurementOrdered By: Kayley Melendrez on 02-12-2025 ALT [Catalytic activity/Vol] 9 U/L <47 [facility] Serum or plasma albumin audrey urement (mass/volume)Ordered By: Kayley Melendrez on 02-12-2025 Albumin [Mass/Vol] 2.9 g/dL Low 3.5-5.0 [facility] Serum or plasma albumin/glob ulin mass ratioOrdered By: Kayley Melendrez on 02-12-2025 Albumin/Globulin [Mass ratio] 0.7 {ratio} Low 0.9-2.4 [facility] Serum or plasma alkaline jacob sphatase measurementOrdered By: Kayley Melendrez on 02-12-2025 ALP [Catalytic activity/Vol] 177 U/L High 40-129 [facility] Serum or plasma calcium audrey urement (mass/volume)Ordered By: Kayley Melendrez on 02-12-2025 Calcium [Mass/Vol] 9.9 mg/dL 7.6-11.0 [facility] Serum or plasma urea nitroge n measurement (mass/volume)Ordered By: Kayley Melendrez on 02-12-2025 Urea nitrogen [Mass/Vol] 43 mg/dL High 4-19 [facility] Sodium levelOrdered By: Lexismatt vásquez Parvin on 02-12-2025 Sodium [Moles/Vol] 131 mmol/L Low 133-145 [facility] Total proteinOrdered By: Lexis Melendrez on 02-12-2025 Protein [Mass/Vol] 7.1 g/dL 5.9-8.4 [facility] White blood cell (WBC) count Ordered By: Kayley Melendrez on 02-12-2025 WBC (Bld) [#/Vol] 7.3 10*3/uL 4.4-11.0 [facility] International normalized rat io (INR) measurement by fingerstickOrdered By: Kayley Melendrez on 02-08-2025 INR Coag (BldC) [Relative time] 2.3 [facility] Comment on above: Critical Value > 4.0 Protime w/INR Fingerstickon 02-08-2025 INR Coag (PPP) [Relative time] 2.3 {INR} Normal [facility] Comment on above: Result Comment: Crit ical Value > 4.0 Performed By: #### L 300.3900 #### [facility] [address] [place], [address] Protime Coagsen 24.9 SEC High 11.7-14.9 [facility] Comment on above: Performed By: #### L [id number] #### [facility] [address] [place], [address] Whole blood prothrombin time Ordered By: Kayley Melendrez on 02-08-2025 PT Coag (Bld) [Time] 24.9 s High 11.7-14.9 [facility] International normalized rat io (INR) calculationOrdered By: Jayesh Stubbs on 02-07-2025 INR Coag (Bld) [Relative time] 1.8 {INR} [facility] Prothrombin Time w/INRon INR Coag (PPP) [Relative time] 1.8 {INR} Normal [facility] Comment on above: Order Comment: 412.2 Performed By: #### L 300.3900 #### [facility] [address] [place], [place], [address] PT Coag (PPP) [Time] 21.1 s High 11.7-14.9 [facility] Comment on above: Order Comment: 412.2 Performed By: #### L [id number] #### [facility] [address] [place], [place], [id number] Prothrombin timeOrdered By: Jayesh Stubbs on 02-07-2025 PT Coag (PPP) [Time] 21.1 s High 11.7-14.9 [facility] Absolute lymphocyte countOrd ered By: Kayley Melendrez on 02-05-2025 Lymphocytes Auto (Unsp spec) [#/Vol] 1.77 10*3/uL 0.83-4.51 [facility] Absolute neutrophil countOrd ered By: Kayley Melendrez on 02-05-2025 Neutrophils (Bld) [#/Vol] 4.6 10*3/uL 2.0-7.7 [facility] Anion gap in Serum or Plasma Ordered By: Kayley Melendrez on 02-05-2025 Anion gap [Moles/Vol] 18 mmol/L High 5-15 [facility] Automated lymphocyte count a s percentage of total leukocytesOrdered By: Kayley Melendrez on 02-05-2025 Lymphocytes/100 WBC Auto (Unsp spec) 22.0 % 19-41 [facility] BUN/creatinine ratioOrdered By: Kayley Melendrez on 02-05-2025 Urea nitrogen/Creatinine [Mass ratio] 4.1 mg/mg Low 10-20 [facility] Basophil percentageOrdered B y: Kayley Melendrez on 02-05-2025 Basophils/100 WBC (Bld) 1.0 % 0-1 [facility] Bilirubin, totalOrdered By: Kayley Melendrez on 02-05-2025 Bilirubin [Mass/Vol] 0.81 mg/dL 0.00-1.30 [facility] CBC W/Diff, Automatedon 01-25 Absolute Lymph 1.77 X10 3/uL Normal 0.83-4.51 [facility] Comment on above: Order Comment: 413-2 Performed By: #### L 300.3900 #### [facility] [address] [place], [address] Absolute Neut 4.6 X10 3/uL Normal 2.0-7.7 [facility] Comment on above: Order Comment: 413-2 Performed By: #### L 300.3900 #### [facility] [address] [place], [address] Basophils/100 WBC (Bld) 1.0 % Normal 0-1 [facility] Comment on above: Order Comment: 413-2 Performed By: #### L [id number] #### [facility] [address] [place], [address] Eosinophils/100 WBC (Bld) 4.1 % Normal 0-5 [facility] Comment on above: Order Comment: 413-2 Performed By: #### L [id number] #### [facility] [address] [place], [address] Erythrocyte distribution width (RBC) [Ratio] 18.8 % High 11.6-14.6 [facility] Comment on above: Order Comment: 413-2 Performed By: #### L [id number] #### [facility] [address] [place], [address] Hematocrit (Bld) [Volume fraction] 28.1 % Low 40-54 [facility] Comment on above: Order Comment: 413-2 Performed By: #### L [id number] #### [facility] [address] [place], [address] Hemoglobin (Bld) [Mass/Vol] 8.8 g/dL Low 13.0-16.5 [facility] Comment on above: Order Comment: 413-2 Performed By: #### L 300.3900 #### [facility] [address] [place], [address] IG% 0.600 Normal 0.0-0.9 [facility] Comment on above: Order Comment: 413-2 Result Comment: IG% - Immature Granulocytes (promyelocytes, myelocytes and metamyelocytes) > 1% indicates that a LEFT SHIFT is Present. Performed By: #### L 300.3900 #### [facility] [address] [place], [address] Lymphocytes/100 WBC (Bld) 22.0 % Normal 19-41 [facility] Comment on above: Order Comment: 413-2 Performed By: #### L [id number] #### [facility] [address] [place], [address] MCH (RBC) [Entitic mass] 29.0 pg Normal 27.0-32.0 [facility] Comment on above: Order Comment: 413-2 Performed By: #### L [id number] #### [facility] [address] [place], [address] MCHC (RBC) [Mass/Vol] 31.3 g/dL Low 32-36 [facility] Comment on above: Order Comment: 413-2 Performed By: #### L [id number] #### [facility] [address] [place], [address] MCV (RBC) [Entitic vol] 92.7 fL Normal 80-94 [facility] Comment on above: Order Comment: 413-2 Performed By: #### L [id number] #### [facility] [address] [place], [address] Monocytes/100 WBC (Bld) 15.6 % High 0-10 [facility] Comment on above: Order Comment: 413-2 Performed By: #### [id number] #### [facility] [address] [place], [address] Neutrophils/100 WBC (Bld) 56.7 % Normal 47-70 [facility] Comment on above: Order Comment: 413-2 Performed By: #### L [id number] #### [facility] [address] [place], [address] Nucleated RBC (Bld) [#/Vol] 0 10*3/uL Normal 0-5 [facility] Comment on above: Order Comment: 413-2 Performed By: #### L [id number] #### [facility] [address] [place], [address] Platelet mean volume (Bld) [Entitic vol] 9.2 fL Normal 6.2-12.0 [facility] Comment on above: Order Comment: 413-2 Performed By: #### L [id number] #### [facility] [address] [place], [address] Platelets (Bld) [#/Vol] 358 10*3/uL Normal 150-450 [facility] Comment on above: Order Comment: 413-2 Performed By: #### L [id number] #### [facility] [address] [place], [address] RBC (Bld) [#/Vol] 3.03 10*6/uL Low 4.6-6.2 [facility] Comment on above: Order Comment: 413-2 Performed By: #### L [id number] #### [facility] [address] [place], [address] RDW SD 63.1 fl High 35.1-43.9 [facility] Comment on above: Order Comment: 413-2 Performed By: #### L [id number] #### [facility] [address] [place], [address] WBC (Bld) [#/Vol] 8.1 10*3/uL Normal 4.4-11.0 [facility] Comment on above: Order Comment: 413-2 Performed By: #### L [id number] #### [facility] [address] [place], [address] Carbon dioxide, total [Moles /volume] in Central venous bloodOrdered By: Kayley Melendrez on 02-05-2025 CO2 [Moles/Vol] 25.9 mmol/L 21.0-32.0 [facility] Chloride assayOrdered By: Carmen Melendrez on 02-05-2025 Chloride [Moles/Vol] 93 mmol/L Low 98-108 [facility] Comprehensive Metabolic Prof ilon 02-05-2025 Albumin [Mass/Vol] 3.1 g/dL Low 3.5-5.0 [facility] Comment on above: Order Comment: 413-2 Performed By: #### L [id number] #### [facility] [address] [place], [address] Albumin/Globulin [Mass ratio] 0.7 {ratio} Low 0.9-2.4 [facility] Comment on above: Order Comment: 413-2 Performed By: #### [id number] #### [facility] [address] [place], [address] ALK PHOS 260 U/L High 40-129 [facility] Comment on above: Order Comment: 413-2 Performed By: #### [id number] #### [facility] [address] [place], [address] ALT [Catalytic activity/Vol] 11 U/L Normal <=46 [facility] Comment on above: Order Comment: 413-2 Performed By: #### [id number] #### [facility] [address] [place], [address] AST [Catalytic activity/Vol] 42 U/L High <=37 [facility] Comment on above: Order Comment: 413-2 Performed By: #### L [id number] #### [facility] [address] [place], [address] Bilirubin [Mass/Vol] 0.81 mg/dL Normal 0.00-1.30 [facility] Comment on above: Order Comment: 413-2 Performed By: #### L [id number] #### [facility] [address] [place], [address] BUN/CRE 4.1 RATIO Low 10-20 [facility] Comment on above: Order Comment: 413-2 Performed By: #### L [id number] #### [facility] [address] [place], [address] Calcium [Mass/Vol] 10.0 mg/dL Normal 7.6-11.0 [facility] Comment on above: Order Comment: 413-2 Performed By: #### L [id number] #### [facility] [address] [place], [address] Chloride [Moles/Vol] 93 mmol/L Low 98-108 [facility] Comment on above: Order Comment: 413-2 Performed By: #### L [id number] #### [facility] [address] [place], [address] CO2 [Moles/Vol] 25.9 mmol/L Normal 21.0-32.0 [facility] Comment on above: Order Comment: 413-2 Performed By: #### L [id number] #### [facility] [address] [place], [address] Creatinine [Mass/Vol] 5.27 mg/dL High 0.70-1.20 [facility] Comment on above: Order Comment: 413-2 Performed By: #### L [id number] #### [facility] [address] [place], [address] GAP 18 High 5-15 [facility] Comment on above: Order Comment: 413-2 Performed By: #### L [id number] #### [facility] [address] [place], [address] GFR/1.73 sq M.predicted among non-blacks MDRD (S/P/Bld) [Vol rate/Area] 12 mL/min/{1.73_m2} Low >60 [facility] Comment on above: Order Comment: 413-2 Result Comment: mL/m in/1.73m2 CKD-EPI Creatinine Equation (2020) Performed By: #### L [id number] #### [facility] [address] [place], [address] Globulin (S) [Mass/Vol] 4.3 g/dL High 2.2-4.2 [facility] Comment on above: Order Comment: 413-2 Performed By: #### L [id number] #### [facility] [address] [place], [address] Glucose [Mass/Vol] 65 mg/dL Low 70-99 [facility] Comment on above: Order Comment: 413-2 Performed By: #### L [id number] #### [facility] [address] [place], [address] Potassium [Moles/Vol] 4.5 mmol/L Normal 3.3-5.1 [facility] Comment on above: Order Comment: 413-2 Performed By: #### L [id number] #### [facility] [address] [place], [address] Sodium [Moles/Vol] 136 mmol/L Normal 133-145 [facility] Comment on above: Order Comment: 413-2 Performed By: #### L [id number] #### [facility] [address] [place], [place], [address] T PROT 7.4 g/dL Normal 5.9-8.4 [facility] Comment on above: Order Comment: 413-2 Performed By: #### L [id number] #### [facility] [address] [place], [place], [address] Urea nitrogen [Mass/Vol] 22 mg/dL High 4-19 [facility] Comment on above: Order Comment: 413-2 Performed By: #### L [id number] #### [facility] [address] [place], [place], [address] Eosinophil percentageOrdered By: Kayley Melendrez on 02-05-2025 Eosinophils/100 WBC (Bld) 4.1 % 0-5 [facility] Erythrocyte distribution wid th ratioOrdered By: Kayley Melendrez on 02-05-2025 Erythrocyte distribution width (RBC) [Ratio] 18.8 % High 11.6-14.6 [facility] Erythrocyte distribution wid th standard deviationOrdered By: Kayley Melendrez on 02-05-2025 Erythrocyte distribution width (RBC) [Ratio] 63.1 fl High 35.1-43.9 [facility] Glomerular filtration rate ( GFR) estimation/1.73 sq m using serum, plasma, or whole bOrdered By: Kayley Melendrez on 02-05-2025 GFR/1.73 sq M.predicted among non-blacks MDRD (S/P/Bld) [Vol rate/Area] 12 mL/min/{1.73_m2} Low >60 [facility] Comment on above: mL/min/1.73m2 CKD-EP I Creatinine Equation (2020) Hematocrit Auto (Bld) [Volum e fraction]Ordered By: Kayley Melendrez on 02-05-2025 Hematocrit (Bld) [Volume fraction] 28.1 % Low 40-54 [facility] Hemoglobin measurementOrdere d By: Kayley Melendrez on 02-05-2025 Hemoglobin (Bld) [Mass/Vol] 8.8 g/dL Low 13.0-16.5 [facility] Immature granulocytes/100 WB C Auto (Bld)Ordered By: Kayley Melendrez on 02-05-2025 Immature granulocytes/100 WBC (Bld) 0.600 % 0.0-0.9 [facility] Comment on above: IG% - Immature Granu locytes (promyelocytes, myelocytes and metamyelocytes) > 1% indicates that a LEFT SHIFT is Present. Laboratory - Chemistry and C hemistry - challengeOrdered By: Kayley Melendrez on 02-05-2025 AST [Catalytic activity/Vol] 42 U/L High <38 [facility] MCV (mean corpuscular volume ) determinationOrdered By: Kayley Melendrez on 02-05-2025 MCV (RBC) [Entitic vol] 92.7 fL 80-94 [facility] Mean corpuscular hemoglobin (MCH) determinationOrdered By: Kayley Melendrez on 02-05-2025 MCH (RBC) [Entitic mass] 29.0 pg 27.0-32.0 [facility] Mean corpuscular hemoglobin concentration (MCHC) determinationOrdered By: Kayley Melendrez on 02-05-2025 MCHC (RBC) [Mass/Vol] 31.3 g/dL Low 32-36 [facility] Mean platelet volume determi nationOrdered By: Kayley Melendrez on 02-05-2025 Platelet mean volume (Bld) [Entitic vol] 9.2 fL 6.2-12.0 [facility] Monocyte percentageOrdered B y: Kayley Melendrez on 02-05-2025 Monocytes/100 WBC (Bld) 15.6 % High 0-10 [facility] Neutrophil percentageOrdered By: Kayley Melendrez on 02-05-2025 Neutrophils/100 WBC (Bld) 56.7 % 47-70 [facility] Nucleated red blood cell per centageOrdered By: Kayley Melendrez on 02-05-2025 Nucleated RBC/100 WBC (Bld) [Ratio] 0 % 0-5 [facility] Platelet countOrdered By: Carmen Melendrez on 02-05-2025 Platelets (Bld) [#/Vol] 358 10*3/uL 150-450 [facility] Potassium measurement (mass/ volume)Ordered By: Kayley Melendrez on 02-05-2025 Potassium (Unsp spec) [Mass/Vol] 4.5 mmol/L 3.3-5.1 [facility] RBC Auto (Bld) [#/Vol]Ordere d By: Kayley Melendrez on 02-05-2025 RBC (Bld) [#/Vol] 3.03 10*6/uL Low 4.6-6.2 [facility] Serum creatinine measurement (mass/volume)Ordered By: Kayley Melendrez on 02-05-2025 Creatinine [Mass/Vol] 5.27 mg/dL High 0.70-1.20 [facility] Serum globulin measurementOr dered By: Kayley Melendrez on 02-05-2025 Globulin (S) [Mass/Vol] 4.3 g/dL High 2.2-4.2 [facility] Serum glucose measurement (m ass/volume)Ordered By: Kayley Melendrez on 02-05-2025 Glucose [Mass/Vol] 65 mg/dL Low 70-99 [facility] Serum or plasma alanine mayorga otransferase (ALT) measurementOrdered By: Kayley Melendrez on 02-05-2025 ALT [Catalytic activity/Vol] 11 U/L <47 [facility] Serum or plasma albumin audrey urement (mass/volume)Ordered By: Kayley Melendrez on 02-05-2025 Albumin [Mass/Vol] 3.1 g/dL Low 3.5-5.0 [facility] Serum or plasma albumin/glob ulin mass ratioOrdered By: Kayley Melendrez on 02-05-2025 Albumin/Globulin [Mass ratio] 0.7 {ratio} Low 0.9-2.4 [facility] Serum or plasma alkaline jacob sphatase measurementOrdered By: Kayley Melendrez on 02-05-2025 ALP [Catalytic activity/Vol] 260 U/L High 40-129 [facility] Serum or plasma calcium audrey urement (mass/volume)Ordered By: Lexisamparo Melendrez on 02-05-2025 Calcium [Mass/Vol] 10.0 mg/dL 7.6-11.0 [facility] Serum or plasma urea nitroge n measurement (mass/volume)Ordered By: Kayley Melendrez on 02-05-2025 Urea nitrogen [Mass/Vol] 22 mg/dL High 4-19 [facility] Sodium levelOrdered By: Omega bernadinejacob [facility] 02-05-2025 Sodium [Moles/Vol] 136 mmol/L 133-145 [facility] Total proteinOrdered By: Lexis Goodentorringtonsamson on 02-05-2025 Protein [Mass/Vol] 7.4 g/dL 5.9-8.4 [facility] White blood cell (WBC) count Ordered By: Kayley Melendrez on 02-05-2025 WBC (Bld) [#/Vol] 8.1 10*3/uL 4.4-11.0 [facility] CBC panel Auto (Bld)on 02-01 Erythrocyte distribution width (RBC) [Ratio] 18.8 % High 11.5 - 15.0 % [facility] Hematocrit (Bld) [Volume fraction] 28.3 % Low 40.0 - 52.0 % [facility] Hemoglobin (Bld) [Mass/Vol] 8.9 g/dL Low 13.0 - 18.0 g/dL [facility] Interpretation and review of laboratory results Abnormal [facility] MCH (RBC) [Entitic mass] 28.2 pg 26. 0 - 34.0 pg [facility] MCHC (RBC) [Mass/Vol] 31.4 % 30.5 - 36.0 % [facility] MCV (RBC) [Entitic vol] 89.6 fL 77.0 - 99.0 fL [facility] Platelet mean volume (Bld) [Entitic vol] 9 fL 9.0 - 12.7 fL [facility] Platelets (Bld) [#/Vol] 282 10*3/uL 140 - 440 10*3/uL [facility] RBC (Bld) [#/Vol] 3.16 10*6/uL Low 4.40 - 5.9 0 10*6/uL [facility] WBC (Bld) [#/Vol] 7.9 10*3/uL 3.6 - 10.7 10*3/uL [facility] Comprehensive metabolic 1998 panelon 02-01-2025 Albumin [Mass/Vol] 2.1 g/dL Low 3.5 - 5.0 g/dL [facility] ALP [Catalytic activity/Vol] 226 U/L High 40 - 150 U/L [facility] ALT [Catalytic activity/Vol] 10 U/L NINF - 40 U/L [facility] Anion gap [Moles/Vol] 11 mmol/L 3 - 13 mmol/L [facility] AST [Catalytic activity/Vol] 32 U/L NINF - 34 U/L [facility] Bilirubin [Mass/Vol] 0.9 mg/dL NINF - 1.2 mg/dL [facility] Calcium [Mass/Vol] 9.7 mg/dL 8.4 - 10. 2 mg/dL [facility] Chloride [Moles/Vol] 99 mmol/L 98 - 10 7 mmol/L [facility] CO2 [Moles/Vol] 26 mmol/L 22 - 29 mmol/L [facility] Creatinine [Mass/Vol] 2.39 mg/dL High 0.72 - 1.25 mg/dL [facility] GFR/1.73 sq M.predicted (S/P/Bld) [Vol rate/Area] 30.5 mL/min Low - PINF [facility] Glucose [Mass/Vol] 87 mg/dL 74 - 100 mg/dL [facility] Interpretation and review of laboratory results Abnormal [facility] Potassium [Moles/Vol] 3.7 mmol/L 3.5 - 5.1 mmol/L [facility] Protein [Mass/Vol] 7.4 g/dL 6.4 - 8.3 g/dL [facility] Sodium [Moles/Vol] 136 mmol/L 136 - 145 mmol/L [facility] Urea nitrogen [Mass/Vol] 7 mg/dL Low 9 - 23 mg/d L [facility] Hemoglobin (Bld) [Mass/Vol]O rdered By: Rosa Juares on 02-01-2025 Hematocrit (Bld) [Volume fraction] 28.8 % Low 40.0 - 52.0 % [facility] Interpretation and review of laboratory results Abnormal [facility] Laboratory - Chemistry and C hemistry - challengeon 02-01-2025 Magnesium [Mass/Vol] 1.9 mg/dL 1.6 - 2 .6 mg/dL [facility] - Coagulationon 02-01-2025 PT Coag (Bld) [Time] 20.3 s High 9.0 - 12.0 s [facility] - Hematology and Cell countsOrdered By: Rosa Juares on 02-01-2025 Hemoglobin (Bld) [Mass/Vol] 8.9 g/dL Low 13.0 - 18.0 g/dL [facility] Magnesium [Mass/Vol]on 02-01 [facility] No Panel Informationon 02-01 Interpretation and review of laboratory results Normal [facility] PT Coag (Bld) [Time]on 02-01 INR Coag (PPP) [Relative time] 2 {INR} High 0.9 - 1.1 [facility] Interpretation and review of laboratory results Abnormal [facility] Phosphate [Moles/Vol]on Phosphate [Mass/Vol] 3.4 mg/dL 2.3 - 4 .7 mg/dL [facility] CBC panel Auto (Bld)on 01-31 Erythrocyte distribution width (RBC) [Ratio] 19.2 % High 11.5 - 15.0 % [facility] Hematocrit (Bld) [Volume fraction] 27.9 % Low 40.0 - 52.0 % [facility] Hemoglobin (Bld) [Mass/Vol] 8.8 g/dL Low 13.0 - 18.0 g/dL [facility] Interpretation and review of laboratory results Abnormal [facility] MCH (RBC) [Entitic mass] 28.4 pg 26. 0 - 34.0 pg [facility] MCHC (RBC) [Mass/Vol] 31.5 % 30.5 - 36.0 % [facility] MCV (RBC) [Entitic vol] 90 fL 77.0 - 99.0 fL [facility] Platelet mean volume (Bld) [Entitic vol] 9 fL 9.0 - 12.7 fL [facility] Platelets (Bld) [#/Vol] 278 10*3/uL 140 - 440 10*3/uL [facility] RBC (Bld) [#/Vol] 3.1 10*6/uL Low 4.40 - 5.9 0 10*6/uL [facility] WBC (Bld) [#/Vol] 9.3 10*3/uL 3.6 - 10.7 10*3/uL [facility] Comprehensive metabolic 1998 panelon 01-31-2025 Albumin [Mass/Vol] 2.1 g/dL Low 3.5 - 5.0 g/dL [facility] ALP [Catalytic activity/Vol] 218 U/L High 40 - 150 U/L [facility] ALT [Catalytic activity/Vol] 11 U/L NINF - 40 U/L [facility] Anion gap [Moles/Vol] 12 mmol/L 3 - 13 mmol/L [facility] AST [Catalytic activity/Vol] 31 U/L [facility]/L [facility] Bilirubin [Mass/Vol] 0.8 mg/dL NINF - 1.2 mg/dL [facility] Calcium [Mass/Vol] 10 mg/dL 8.4 - 10. 2 mg/dL [facility] Chloride [Moles/Vol] 99 mmol/L 98 - 10 7 mmol/L [facility] CO2 [Moles/Vol] 27 mmol/L 22 - 29 mmol/L [facility] Creatinine [Mass/Vol] 3.64 mg/dL High 0.72 - 1.25 mg/dL [facility] GFR/1.73 sq M.predicted (S/P/Bld) [Vol rate/Area] 18.4 mL/min Low - PINF [facility] Glucose [Mass/Vol] 87 mg/dL 74 - 100 mg/dL [facility] Interpretation and review of laboratory results Abnormal [facility] Potassium [Moles/Vol] 4.3 mmol/L 3.5 - 5.1 mmol/L [facility] Protein [Mass/Vol] 7.3 g/dL 6.4 - 8.3 g/dL [facility] Sodium [Moles/Vol] 138 mmol/L 136 - 145 mmol/L [facility] Urea nitrogen [Mass/Vol] 15 mg/dL 9 - 23 mg/d L [facility] Hemoglobin (Bld) [Mass/Vol]o n 01-31-2025 Hematocrit (Bld) [Volume fraction] 28.8 % Low 40.0 - 52.0 % [facility] Interpretation and review of laboratory results Abnormal [facility] Laboratory - Chemistry and C hemistry - challengeon 01-31-2025 Magnesium [Mass/Vol] 2 mg/dL 1.6 - 2 .6 mg/dL [facility] Laboratory - Coagulationon 01-31-2025 PT Coag (Bld) [Time] 22.4 s High 9.0 - 12.0 s [facility] Laboratory - Hematology and Cell countson 01-31-2025 Hemoglobin (Bld) [Mass/Vol] 9.2 g/dL Low 13.0 - 18.0 g/dL [facility] Magnesium [Mass/Vol]on 01-31 [facility] No Panel Informationon 01-31 Interpretation and review of laboratory results Normal [facility] PT Coag (Bld) [Time]on 01-31 INR Coag (PPP) [Relative time] 2.2 {INR} High 0.9 - 1.1 [facility] Interpretation and review of laboratory results Abnormal [facility] Phosphate [Moles/Vol]on Phosphate [Mass/Vol] 4.6 mg/dL 2.3 - 4 .7 mg/dL [facility] Basic metabolic 1998 panelon 01-30-2025 Anion gap [Moles/Vol] 13 mmol/L 3 - 13 mmol/L [facility] Calcium [Mass/Vol] 9.6 mg/dL 8.4 - 10. 2 mg/dL [facility] Chloride [Moles/Vol] 99 mmol/L 98 - 10 7 mmol/L [facility] CO2 [Moles/Vol] 23 mmol/L 22 - 29 mmol/L [facility] Creatinine [Mass/Vol] 2.56 mg/dL High 0.72 - 1.25 mg/dL [facility] GFR/1.73 sq M.predicted (S/P/Bld) [Vol rate/Area] 28.1 mL/min Low - PINF [facility] Glucose [Mass/Vol] 88 mg/dL 74 - 100 mg/dL [facility] Interpretation and review of laboratory results Abnormal [facility] Potassium [Moles/Vol] 3.7 mmol/L 3.5 - 5.1 mmol/L [facility] Sodium [Moles/Vol] 135 mmol/L Low 136 - 145 mmol/L [facility] Urea nitrogen [Mass/Vol] 10 mg/dL 9 - 23 mg/d L [facility] CBC panel Auto (Bld)on 01-30 Erythrocyte distribution width (RBC) [Ratio] 18.9 % High 11.5 - 15.0 % [facility] Hematocrit (Bld) [Volume fraction] 28.1 % Low 40.0 - 52.0 % [facility] Hemoglobin (Bld) [Mass/Vol] 8.7 g/dL Low 13.0 - 18.0 g/dL [facility] Interpretation and review of laboratory results Abnormal [facility] MCH (RBC) [Entitic mass] 27.6 pg 26. 0 - 34.0 pg [facility] MCHC (RBC) [Mass/Vol] 31 % 30.5 - 36.0 % [facility] MCV (RBC) [Entitic vol] 89.2 fL 77.0 - 99.0 fL [facility] Platelet mean volume (Bld) [Entitic vol] 9.1 fL 9.0 - 12.7 fL [facility] Platelets (Bld) [#/Vol] 276 10*3/uL 140 - 440 10*3/uL [facility] RBC (Bld) [#/Vol] 3.15 10*6/uL Low 4.40 - 5.9 0 10*6/uL [facility] WBC (Bld) [#/Vol] 8.8 10*3/uL 3.6 - 10.7 10*3/uL [facility] Hemoglobin (Bld) [Mass/Vol]O rdered By: Rikki Cablalero on 01-30-2025 Hematocrit (Bld) [Volume fraction] 31.5 % Low 40.0 - 52.0 % [facility] Interpretation and review of laboratory results Abnormal [facility] Laboratory - Chemistry and C hemistry - challengeon 01-30-2025 Glucose [Mass/Vol] 106 mg/dL High 70 - 100 mg/dL [facility] Glucose [Mass/Vol] 107 mg/dL High 70 - 100 mg/dL [facility] Glucose [Mass/Vol] 77 mg/dL 70 - 100 mg/dL [facility] Magnesium [Mass/Vol] 1.9 mg/dL 1.6 - 2 .6 mg/dL [facility] Laboratory - Coagulationon 0 01-30-2025 PT Coag (Bld) [Time] 24.9 s High 9.0 - 12.0 s [facility] Laboratory - Hematology and Cell countsOrdered By: Rikki Caballero on 01-30-2025 Hemoglobin (Bld) [Mass/Vol] 9.8 g/dL Low 13.0 - 18.0 g/dL [facility] Magnesium [Mass/Vol]on 01-30 Interpretation and review of laboratory results Normal [facility] No Panel Informationon 01-30 Interpretation and review of laboratory results Abnormal [facility] RADIOLOGY SYSTEM [facility] Radiology Study observation (narrative) [facility] Interpretation and review of laboratory results Abnormal [facility] Interpretation and review of laboratory results Normal [facility] Blood Expiration Date [id number] S [facility] Crossmatch interpretation COMP [facility] Dispense Status Released from [employer] [facility] Product Blood Type 9500 [facility] PRODUCT CODE [id number] [facility] ABO O [facility] Unit Number [id number] [facility] alth Unit RH Negative [facility] Unit Volume 300 mL [facility] No Panel InformationOrdered By: Jun Borrero on 01-30-2025 [facility] Work Phone: PT Coag (Bld) [Time]on 01-30 INR Coag (PPP) [Relative time] 2.5 {INR} High 0.9 - 1.1 [facility] Interpretation and review of laboratory results Abnormal [facility] Phosphate [Moles/Vol]on Interpretation and review of laboratory results Normal [facility] Phosphate [Mass/Vol] 3.7 mg/dL 2.3 - 4 .7 mg/dL [facility] Basic metabolic 1998 panelon 01-29-2025 Anion gap [Moles/Vol] 17 mmol/L High 3 - 13 mmol/L [facility] Calcium [Mass/Vol] 9.8 mg/dL 8.4 - 10. 2 mg/dL [facility] Chloride [Moles/Vol] 94 mmol/L Low 98 - 10 7 mmol/L [facility] CO2 [Moles/Vol] 23 mmol/L 22 - 29 mmol/L [facility] Creatinine [Mass/Vol] 4.17 mg/dL High 0.72 - 1.25 mg/dL [facility] GFR/1.73 sq M.predicted (S/P/Bld) [Vol rate/Area] 15.6 mL/min Low - PINF [facility] Glucose [Mass/Vol] 80 mg/dL 74 - 100 mg/dL [facility] Potassium [Moles/Vol] 3.7 mmol/L 3.5 - 5.1 mmol/L [facility] Sodium [Moles/Vol] 134 mmol/L Low 136 - 145 mmol/L [facility] Urea nitrogen [Mass/Vol] 21 mg/dL 9 - 23 mg/d L [facility] CBC panel Auto (Bld)on 01-29 Erythrocyte distribution width (RBC) [Ratio] 19 % High 11.5 - 15.0 % [facility] Hematocrit (Bld) [Volume fraction] 27.3 % Low 40.0 - 52.0 % [facility] Hemoglobin (Bld) [Mass/Vol] 8.6 g/dL Low 13.0 - 18.0 g/dL [facility] Interpretation and review of laboratory results Abnormal [facility] MCH (RBC) [Entitic mass] 28.1 pg 26. 0 - 34.0 pg [facility] MCHC (RBC) [Mass/Vol] 31.5 % 30.5 - 36.0 % [facility] MCV (RBC) [Entitic vol] 89.2 fL 77.0 - 99.0 fL [facility] Platelet mean volume (Bld) [Entitic vol] 9.4 fL 9.0 - 12.7 fL [facility] Platelets (Bld) [#/Vol] 271 10*3/uL 140 - 440 10*3/uL [facility] RBC (Bld) [#/Vol] 3.06 10*6/uL Low 4.40 - 5.9 0 10*6/uL [facility] WBC (Bld) [#/Vol] 9.4 10*3/uL 3.6 - 10.7 10*3/uL [facility] Laboratory - Chemistry and C hemistry - challengeon 01-29-2025 Glucose [Mass/Vol] 82 mg/dL 70 - 100 mg/dL [facility] Glucose [Mass/Vol] 87 mg/dL 70 - 100 mg/dL [facility] Glucose [Mass/Vol] 91 mg/dL 70 - 100 mg/dL [facility] Magnesium [Mass/Vol] 2 mg/dL 1.6 - 2 .6 mg/dL [facility] Laboratory - Coagulationon 01-29-2025 Coagulation factor VIII activity actual/normal Coag (PPP) [Relative time] 412 % High 56 - 191 % [facility] vWf Ag actual/normal IA (PPP) [Relative mass conc] 281 % High 52 - 214 % [facility] vWf multimers Ql (PPP) See Note [facility] vWf ristocetin cofactor act actual/normal Platelet aggregation (PPP) [Relative time] 200 % 51 - 215 % [facility] th PT Coag (Bld) [Time] 24 s High 9.0 - 12.0 s [facility] Magnesium [Mass/Vol]on 01-29 Interpretation and review of laboratory results Normal [facility] No Panel Informationon 01-29 Interpretation and review of laboratory results Normal [facility] Interpretation and review of laboratory results Normal [facility] Interpretation and review of laboratory results Abnormal [facility] Interpretation and review of laboratory results Normal [facility] Interpretation and review of laboratory results Abnormal [facility] Interpretation and review of laboratory results Abnormal [facility] PT Coag (Bld) [Time]on 01-29 INR Coag (PPP) [Relative time] 2.4 {INR} High 0.9 - 1.1 [facility] Phosphate [Moles/Vol]on Phosphate [Mass/Vol] 4.9 mg/dL High 2.3 - 4 .7 mg/dL [facility] aPTT Coag (Bld) [Time]on aPTT Coag (PPP) [Time] 51.4 s High 20.0 - 30.5 s [facility] Basic metabolic 1998 panelon 01-28-2025 Anion gap [Moles/Vol] 13 mmol/L 3 - 13 mmol/L [facility] Calcium [Mass/Vol] 10 mg/dL 8.4 - 10. 2 mg/dL [facility] Chloride [Moles/Vol] 98 mmol/L 98 - 10 7 mmol/L [facility] CO2 [Moles/Vol] 26 mmol/L 22 - 29 mmol/L [facility] Creatinine [Mass/Vol] 3.37 mg/dL High 0.72 - 1.25 mg/dL [facility] GFR/1.73 sq M.predicted (S/P/Bld) [Vol rate/Area] 20.2 mL/min Low - PINF [facility] Glucose [Mass/Vol] 82 mg/dL 74 - 100 mg/dL [facility] Interpretation and review of laboratory results Abnormal [facility] Potassium [Moles/Vol] 3.6 mmol/L 3.5 - 5.1 mmol/L [facility] Sodium [Moles/Vol] 137 mmol/L 136 - 145 mmol/L [facility] Urea nitrogen [Mass/Vol] 14 mg/dL 9 - 23 mg/d L [facility] CBC panel Auto (Bld)on 01-28 Erythrocyte distribution width (RBC) [Ratio] 19 % High 11.5 - 15.0 % [facility] Hematocrit (Bld) [Volume fraction] 26.3 % Low 40.0 - 52.0 % [facility] Hemoglobin (Bld) [Mass/Vol] 8.5 g/dL Low 13.0 - 18.0 g/dL [facility] Interpretation and review of laboratory results Abnormal [facility] MCH (RBC) [Entitic mass] 28.2 pg 26. 0 - 34.0 pg [facility] MCHC (RBC) [Mass/Vol] 32.3 % 30.5 - 36.0 % [facility] MCV (RBC) [Entitic vol] 87.4 fL 77.0 - 99.0 fL [facility] Platelet mean volume (Bld) [Entitic vol] 9.3 fL 9.0 - 12.7 fL [facility] Platelets (Bld) [#/Vol] 240 10*3/uL 140 - 440 10*3/uL [facility] RBC (Bld) [#/Vol] 3.01 10*6/uL Low 4.40 - 5.9 0 10*6/uL [facility] WBC (Bld) [#/Vol] 9.8 10*3/uL 3.6 - 10.7 10*3/uL [facility] Laboratory - Chemistry and C hemistry - challengeon 01-28-2025 Glucose [Mass/Vol] 127 mg/dL High 70 - 100 mg/dL [facility] Magnesium [Mass/Vol] 2 mg/dL 1.6 - 2 .6 mg/dL [facility] Laboratory - Coagulationon 0 01-28-2025 PT Coag (Bld) [Time] 21.9 s High 9.0 - 12.0 s [facility] Magnesium [Mass/Vol]on 01-28 Interpretation and review of laboratory results Normal [facility] No Panel Informationon 01-28 Interpretation and review of laboratory results Abnormal [facility] Interpretation and review of laboratory results Abnormal [facility] PT Coag (Bld) [Time]on 01-28 INR Coag (PPP) [Relative time] 2.2 {INR} High 0.9 - 1.1 [facility] Phosphate [Moles/Vol]on Interpretation and review of laboratory results Abnormal [facility] Phosphate [Mass/Vol] 4.9 mg/dL High 2.3 - 4 .7 mg/dL [facility] aPTT Coag (Bld) [Time]on aPTT Coag (PPP) [Time] 49 s High 20.0 - 30.5 s [facility] Interpretation and review of laboratory results Abnormal [facility] aPTT Coag (PPP) [Time] 46.3 s High 20.0 - 30.5 s [facility] Basic metabolic 1998 panelon 01-27-2025 Anion gap [Moles/Vol] 17 mmol/L High 3 - 13 mmol/L [facility] Calcium [Mass/Vol] 9.9 mg/dL 8.4 - 10. 2 mg/dL [facility] Chloride [Moles/Vol] 99 mmol/L 98 - 10 7 mmol/L [facility] CO2 [Moles/Vol] 23 mmol/L 22 - 29 mmol/L [facility] Creatinine [Mass/Vol] 2.27 mg/dL High 0.72 - 1.25 mg/dL [facility] GFR/1.73 sq M.predicted (S/P/Bld) [Vol rate/Area] 32.4 mL/min Low - PINF [facility] Glucose [Mass/Vol] 115 mg/dL High 74 - 100 mg/dL [facility] Interpretation and review of laboratory results Abnormal [facility] Potassium [Moles/Vol] 3.9 mmol/L 3.5 - 5.1 mmol/L [facility] Sodium [Moles/Vol] 139 mmol/L 136 - 145 mmol/L [facility] Urea nitrogen [Mass/Vol] 9 mg/dL 9 - 23 mg/d L [facility] CBC panel Auto (Bld)on 01-27 Erythrocyte distribution width (RBC) [Ratio] 19.1 % High 11.5 - 15.0 % [facility] Hematocrit (Bld) [Volume fraction] 28.3 % Low 40.0 - 52.0 % [facility] Hemoglobin (Bld) [Mass/Vol] 9 g/dL Low 13.0 - 18.0 g/dL [facility] Interpretation and review of laboratory results Abnormal [facility] MCH (RBC) [Entitic mass] 27.6 pg 26. 0 - 34.0 pg [facility] MCHC (RBC) [Mass/Vol] 31.8 % 30.5 - 36.0 % [facility] MCV (RBC) [Entitic vol] 86.8 fL 77.0 - 99.0 fL [facility] Platelet mean volume (Bld) [Entitic vol] 8.7 fL Low 9.0 - 12.7 fL [facility] Platelets (Bld) [#/Vol] 273 10*3/uL 140 - 440 10*3/uL [facility] RBC (Bld) [#/Vol] 3.26 10*6/uL Low 4.40 - 5.9 0 10*6/uL [facility] WBC (Bld) [#/Vol] 10 10*3/uL 3.6 - 10.7 10*3/uL [facility] Hemoglobin (Bld) [Mass/Vol]o n 01-27-2025 Hematocrit (Bld) [Volume fraction] 26.3 % Low 40.0 - 52.0 % [facility] Interpretation and review of laboratory results Abnormal [facility] Laboratory - Chemistry and C hemistry - challengeon 01-27-2025 Glucose [Mass/Vol] 102 mg/dL High 70 - 100 mg/dL [facility] Glucose [Mass/Vol] 127 mg/dL High 70 - 100 mg/dL [facility] Glucose [Mass/Vol] 87 mg/dL 70 - 100 mg/dL [facility] Magnesium [Mass/Vol] 1.9 mg/dL 1.6 - 2 .6 mg/dL [facility] Laboratory - Coagulationon 0 01-27-2025 PT Coag (Bld) [Time] 19.9 s High 9.0 - 12.0 s [facility] Laboratory - Hematology and Cell countson 01-27-2025 Hemoglobin (Bld) [Mass/Vol] 8.4 g/dL Low 13.0 - 18.0 g/dL [facility] Magnesium [Mass/Vol]on 01-27 [facility] No Panel Informationon 01-27 Interpretation and review of laboratory results Abnormal [facility] Interpretation and review of laboratory results Abnormal [facility] Interpretation and review of laboratory results Normal [facility] Interpretation and review of laboratory results Abnormal [facility] Interpretation and review of laboratory results Normal [facility] PT Coag (Bld) [Time]on 01-27 INR Coag (PPP) [Relative time] 1.9 {INR} High 0.9 - 1.1 [facility] Phosphate [Moles/Vol]on Phosphate [Mass/Vol] 3.4 mg/dL 2.3 - 4 .7 mg/dL [facility] aPTT Coag (Bld) [Time]on aPTT Coag (PPP) [Time] 47.9 s High 20.0 - 30.5 s [facility] Interpretation and review of laboratory results Abnormal [facility] aPTT Coag (PPP) [Time] 49.6 s High 20.0 - 30.5 s [facility] Interpretation and review of laboratory results Abnormal [facility] aPTT Coag (PPP) [Time] 45 s High 20.0 - 30.5 s [facility] Interpretation and review of laboratory results Abnormal [facility] aPTT Coag (PPP) [Time] 40.2 s High 20.0 - 30.5 s [facility] Basic metabolic 1998 panelon 01-26-2025 Anion gap [Moles/Vol] 16 mmol/L High 3 - 13 mmol/L [facility] Calcium [Mass/Vol] 9 mg/dL 8.4 - 10. 2 mg/dL [facility] Chloride [Moles/Vol] 100 mmol/L 98 - 10 7 mmol/L [facility] CO2 [Moles/Vol] 20 mmol/L Low 22 - 29 mmol/L [facility] Creatinine [Mass/Vol] 3.37 mg/dL High 0.72 - 1.25 mg/dL [facility] GFR/1.73 sq M.predicted (S/P/Bld) [Vol rate/Area] 20.2 mL/min Low - PINF [facility] Glucose [Mass/Vol] 75 mg/dL 74 - 100 mg/dL [facility] Interpretation and review of laboratory results Abnormal [facility] Potassium [Moles/Vol] 5.1 mmol/L 3.5 - 5.1 mmol/L [facility] Sodium [Moles/Vol] 136 mmol/L 136 - 145 mmol/L [facility] Urea nitrogen [Mass/Vol] 19 mg/dL 9 - 23 mg/d L [facility] CBC panel Auto (Bld)Ordered By: Brandy Ross on 01-26-2025 Erythrocyte distribution width (RBC) [Ratio] 19.3 % High 11.5 - 15.0 % [facility] Hematocrit (Bld) [Volume fraction] 21 % Low 40.0 - 52.0 % [facility] Hemoglobin (Bld) [Mass/Vol] 6.7 g/dL Critically low 13.0 - 18.0 g/dL [facility] Interpretation and review of laboratory results Abnormal [facility] MCH (RBC) [Entitic mass] 27.8 pg 26. 0 - 34.0 pg [facility] MCHC (RBC) [Mass/Vol] 31.9 % 30.5 - 36.0 % [facility] MCV (RBC) [Entitic vol] 87.1 fL 77.0 - 99.0 fL [facility] Platelet mean volume (Bld) [Entitic vol] 10 fL 9.0 - 12.7 fL [facility] Platelets (Bld) [#/Vol] 265 10*3/uL 140 - 440 10*3/uL [facility] RBC (Bld) [#/Vol] 2.41 10*6/uL Low 4.40 - 5.9 0 10*6/uL [facility] WBC (Bld) [#/Vol] 8.7 10*3/uL 3.6 - 10.7 10*3/uL [facility] HBV surface Ab IA Qnon 01-26 [facility] HBV surface Ag IA Qlon 01-26 Interpretation and review of laboratory results Normal [facility] Hemoglobin (Bld) [Mass/Vol]o n 01-26-2025 Hematocrit (Bld) [Volume fraction] 27.9 % Low 40.0 - 52.0 % [facility] Interpretation and review of laboratory results Abnormal [facility] Hematocrit (Bld) [Volume fraction] 28.4 % Low 40.0 - 52.0 % [facility] Interpretation and review of laboratory results Abnormal [facility] Laboratory - Chemistry and C hemistry - challengeon 01-26-2025 Magnesium [Mass/Vol] 2 mg/dL 1.6 - 2 .6 mg/dL [facility] Laboratory - Coagulationon 0 01-26-2025 PT Coag (Bld) [Time] 18.3 s High 9.0 - 12.0 s [facility] Laboratory - Hematology and Cell countson 01-26-2025 Hemoglobin (Bld) [Mass/Vol] 9 g/dL Low 13.0 - 18.0 g/dL [facility] Hemoglobin (Bld) [Mass/Vol] 8.9 g/dL Low 13.0 - 18.0 g/dL [facility] Laboratory - Microbiology an d Antimicrobial susceptibilityon 01-26-2025 HBV surface Ab IA Qn mIU/mL [facility] HBV surface Ag IA Ql Not detected Not Detected [facility] Magnesium [Mass/Vol]on 01-26 Interpretation and review of laboratory results Normal [facility] No Panel Informationon 01-26 [facility] Blood Expiration Date [id number] S [facility] Crossmatch interpretation COMP [facility] Dispense Status Transfused [facility] Product Blood Type 9500 [facility] PRODUCT CODE [id number] [facility] Health Unit ABO O [facility] Health Unit Number [id number] [facility] He alth Unit RH Negative [facility] Unit Volume 300 mL [facility] Interpretation and review of laboratory results Abnormal [facility] PT Coag (Bld) [Time]on 01-26 INR Coag (PPP) [Relative time] 1.8 {INR} High 0.9 - 1.1 [facility] Phosphate [Moles/Vol]on Interpretation and review of laboratory results Abnormal [facility] Phosphate [Mass/Vol] 5.3 mg/dL High 2.3 - 4 .7 mg/dL [facility] aPTT Coag (Bld) [Time]on aPTT Coag (PPP) [Time] 41.6 s High 20.0 - 30.5 s [facility] Interpretation and review of laboratory results Abnormal [facility] aPTT Coag (PPP) [Time] 47 s High 20.0 - 30.5 s [facility] aPTT Coag (Bld) [Time]Ordere d By: Alan Santos on 01-26-2025 aPTT Coag (PPP) [Time] s Critically high 20.0 - 3 0.5 s [facility] Interpretation and review of laboratory results Abnormal [facility] Basic metabolic 1998 panelon 01-25-2025 Anion gap [Moles/Vol] 16 mmol/L High 3 - 13 mmol/L [facility] Calcium [Mass/Vol] 10.1 mg/dL 8.4 - 10. 2 mg/dL [facility] Chloride [Moles/Vol] 98 mmol/L 98 - 10 7 mmol/L [facility] CO2 [Moles/Vol] 24 mmol/L 22 - 29 mmol/L [facility] Creatinine [Mass/Vol] 2.54 mg/dL High 0.72 - 1.25 mg/dL [facility] GFR/1.73 sq M.predicted (S/P/Bld) [Vol rate/Area] 28.3 mL/min Low - PINF [facility] Glucose [Mass/Vol] 74 mg/dL 74 - 100 mg/dL [facility] Interpretation and review of laboratory results Abnormal [facility] Potassium [Moles/Vol] 3.9 mmol/L 3.5 - 5.1 mmol/L [facility] Sodium [Moles/Vol] 138 mmol/L 136 - 145 mmol/L [facility] Urea nitrogen [Mass/Vol] 15 mg/dL 9 - 23 mg/d L [facility] Blood type and Crossmatch pa freida (Bld)on 01-25-2025 ABO group Nom (Bld) O [facility] Blood group antibody screen GEL Ql Negative [facility] D Ag Ql (RBC) Negative [facility] Healt h [facility] CBC panel Auto (Bld)on 01-25 Erythrocyte distribution width (RBC) [Ratio] 19.2 % High 11.5 - 15.0 % [facility] Hematocrit (Bld) [Volume fraction] 22.5 % Low 40.0 - 52.0 % [facility] Hemoglobin (Bld) [Mass/Vol] 7 g/dL Low 13.0 - 18.0 g/dL [facility] Interpretation and review of laboratory results Abnormal [facility] MCH (RBC) [Entitic mass] 27.6 pg 26. 0 - 34.0 pg [facility] MCHC (RBC) [Mass/Vol] 31.1 % 30.5 - 36.0 % [facility] MCV (RBC) [Entitic vol] 88.6 fL 77.0 - 99.0 fL [facility] Platelet mean volume (Bld) [Entitic vol] 8.8 fL Low 9.0 - 12.7 fL [facility] Platelets (Bld) [#/Vol] 285 10*3/uL 140 - 440 10*3/uL [facility] RBC (Bld) [#/Vol] 2.54 10*6/uL Low 4.40 - 5.9 0 10*6/uL [facility] WBC (Bld) [#/Vol] 10.2 10*3/uL 3.6 - 10.7 10*3/uL [facility] Hemoglobin (Bld) [Mass/Vol]o n 01-25-2025 Hematocrit (Bld) [Volume fraction] 23.8 % Low 40.0 - 52.0 % [facility] Interpretation and review of laboratory results Abnormal [facility] Hematocrit (Bld) [Volume fraction] 24.4 % Low 40.0 - 52.0 % [facility] Interpretation and review of laboratory results Abnormal [facility] Hematocrit (Bld) [Volume fraction] 24.6 % Low 40.0 - 52.0 % [facility] Interpretation and review of laboratory results Abnormal [facility] Hematocrit (Bld) [Volume fraction] 20.4 % Low 40.0 - 52.0 % [facility] Interpretation and review of laboratory results Abnormal [facility] Laboratory - Chemistry and C hemistry - challengeon 01-25-2025 Magnesium [Mass/Vol] 2.1 mg/dL 1.6 - 2 .6 mg/dL [facility] Laboratory - Coagulationon 0 01-25-2025 PT Coag (Bld) [Time] 17.4 s High 9.0 - 12.0 s [facility] PT Coag (Bld) [Time] 15.9 s High 9.0 - 12.0 s [facility] Laboratory - Hematology and Cell countson 01-25-2025 Hemoglobin (Bld) [Mass/Vol] 7.6 g/dL Low 13.0 - 18.0 g/dL [facility] Hemoglobin (Bld) [Mass/Vol] 7.7 g/dL Low 13.0 - 18.0 g/dL [facility] Hemoglobin (Bld) [Mass/Vol] 8 g/dL Low 13.0 - 18.0 g/dL [facility] Hemoglobin (Bld) [Mass/Vol] 6.3 g/dL Critically low 13.0 - 18.0 g/dL [facility] Laboratory - Microbiology an d Antimicrobial susceptibilityon 01-25-2025 A. baumannii DNA EMMANUEL+probe Ql (Unsp spec) Not detected Not Detected [facility] Laboratory - Microbiology an d Antimicrobial susceptibilityOrdered By: Petra Harris on 01-25-2025 C. auris ITS2 gene EMMANUEL+probe Ql (Unsp spec) Not detected Not Detected [facility] Magnesium [Mass/Vol]on 01-25 [facility] No Panel Informationon 01-25 Interpretation and review of laboratory results Normal [facility] Blood Expiration Date [id number] S [facility] Crossmatch interpretation COMP [facility] Dispense Status Transfused [facility] Product Blood Type 9500 [facility] PRODUCT CODE [id number] [facility] ABO O [facility] Unit Number [id number] [facility] alth Unit RH Negative [facility] Unit Volume 300 mL [facility] Interpretation and review of laboratory results Normal [facility] No Panel InformationOrdered By: Petra Harris on 01-25-2025 Interpretation and review of laboratory results Normal [facility] PT Coag (Bld) [Time]on 01-25 INR Coag (PPP) [Relative time] 1.7 {INR} High 0.9 - 1.1 [facility] Interpretation and review of laboratory results Abnormal [facility] INR Coag (PPP) [Relative time] 1.5 {INR} High 0.9 - 1.1 [facility] Interpretation and review of laboratory results Abnormal [facility] Phosphate [Moles/Vol]on Phosphate [Mass/Vol] 3.9 mg/dL 2.3 - 4 .7 mg/dL [facility] RF videography Hypopharynx a nd Esophagus Views for swallowing function W speech and W barium contrast Juan Carlos 01-25-2025 [facility] Radiology Study observation (narrative) [facility] RF videography Hypopharynx a nd Esophagus Views for swallowing function W speech and W barium contrast POOrdered By: Sulaiman Harp on 01-25-2025 [facility] Work Phone: aPTT Coag (Bld) [Time]on aPTT Coag (PPP) [Time] s Critically high 20.0 - 3 0.5 s [facility] [facility] Interpretation and review of laboratory results Abnormal [facility] aPTT Coag (PPP) [Time] 83.1 s High 20.0 - 30.5 s [facility] Interpretation and review of laboratory results Abnormal [facility] aPTT Coag (PPP) [Time] 47.3 s High 20.0 - 30.5 s [facility] Interpretation and review of laboratory results Abnormal [facility] Basic metabolic 1998 panelon 01-24-2025 Anion gap [Moles/Vol] 12 mmol/L 3 - 13 mmol/L [facility] Calcium [Mass/Vol] 9.3 mg/dL 8.4 - 10. 2 mg/dL [facility] Chloride [Moles/Vol] 100 mmol/L 98 - 10 7 mmol/L [facility] CO2 [Moles/Vol] 26 mmol/L 22 - 29 mmol/L [facility] Creatinine [Mass/Vol] 1.47 mg/dL High 0.72 - 1.25 mg/dL [facility] GFR/1.73 sq M.predicted (S/P/Bld) [Vol rate/Area] 54.6 mL/min Low - PINF [facility] Glucose [Mass/Vol] 77 mg/dL 74 - 100 mg/dL [facility] Interpretation and review of laboratory results Abnormal [facility] Potassium [Moles/Vol] 3.5 mmol/L 3.5 - 5.1 mmol/L [facility] Sodium [Moles/Vol] 138 mmol/L 136 - 145 mmol/L [facility] Urea nitrogen [Mass/Vol] 9 mg/dL 9 - 23 mg/d L [facility] Anion gap [Moles/Vol] 20 mmol/L High 3 - 13 mmol/L [facility] Calcium [Mass/Vol] 10.2 mg/dL 8.4 - 10. 2 mg/dL [facility] Chloride [Moles/Vol] 98 mmol/L 98 - 10 7 mmol/L [facility] CO2 [Moles/Vol] 21 mmol/L Low 22 - 29 mmol/L [facility] Creatinine [Mass/Vol] 3.62 mg/dL High 0.72 - 1.25 mg/dL [facility] GFR/1.73 sq M.predicted (S/P/Bld) [Vol rate/Area] 18.5 mL/min Low - PINF [facility] Glucose [Mass/Vol] 74 mg/dL 74 - 100 mg/dL [facility] Potassium [Moles/Vol] 4 mmol/L 3.5 - 5.1 mmol/L [facility] Sodium [Moles/Vol] 139 mmol/L 136 - 145 mmol/L [facility] Urea nitrogen [Mass/Vol] 27 mg/dL High 9 - 23 mg/d L [facility] CBC panel Auto (Bld)Ordered By: Liseth Granado on 01-24-2025 Erythrocyte distribution width (RBC) [Ratio] 19.4 % High 11.5 - 15.0 % [facility] Hematocrit (Bld) [Volume fraction] 27 % Low 40.0 - 52.0 % [facility] Hemoglobin (Bld) [Mass/Vol] 8 g/dL Low 13.0 - 18.0 g/dL [facility] Interpretation and review of laboratory results Abnormal [facility] MCH (RBC) [Entitic mass] 27.9 pg 26. 0 - 34.0 pg [facility] MCHC (RBC) [Mass/Vol] 29.6 % Low 30.5 - 36.0 % [facility] MCV (RBC) [Entitic vol] 94.1 fL 77.0 - 99.0 fL [facility] Platelet mean volume (Bld) [Entitic vol] 9.2 fL 9.0 - 12.7 fL [facility] Platelets (Bld) [#/Vol] 355 10*3/uL 140 - 440 10*3/uL [facility] RBC (Bld) [#/Vol] 2.87 10*6/uL Low 4.40 - 5.9 0 10*6/uL [facility] WBC (Bld) [#/Vol] 11.5 10*3/uL High 3.6 - 10.7 10*3/uL [facility] Hemoglobin (Bld) [Mass/Vol]o n 01-24-2025 Hematocrit (Bld) [Volume fraction] 23 % Low 40.0 - 52.0 % [facility] Interpretation and review of laboratory results Abnormal [facility] Laboratory - Chemistry and C hemistry - challengeon 01-24-2025 Lactate [Moles/Vol] 0.9 mmol/L 0.5 - 2. 2 mmol/L [facility] Laboratory - Chemistry and C hemistry - challengeOrdered By: Farhat Simons on 01-24-2025 Beta hydroxybutyrate [Mass/Vol] 10.5 mg/dL High NINF - 2.8 mg/dL [facility] Laboratory - Chemistry and C hemistry - challengeOrdered By: Anu Graham on 01-24-2025 Magnesium [Mass/Vol] 2.3 mg/dL 1.6 - 2 .6 mg/dL [facility] Laboratory - Coagulationon 0 01-24-2025 PT Coag (Bld) [Time] 15.1 s High 9.0 - 12.0 s [facility] PT Coag (Bld) [Time] 15.6 s High 9.0 - 12.0 s [facility] Laboratory - Hematology and Cell countson 01-24-2025 Hemoglobin (Bld) [Mass/Vol] 7.3 g/dL Low 13.0 - 18.0 g/dL [facility] Magnesium [Mass/Vol]Ordered By: Anu Graham on 01-24-2025 Interpretation and review of laboratory results Normal [facility] No Panel Informationon 01-24 Interpretation and review of laboratory results Abnormal [facility] Interpretation and review of laboratory results Normal [facility] Interpretation and review of laboratory results Abnormal [facility] Blood Expiration Date S [facility] Crossmatch interpretation COMP [facility] Dispense Status Released from [employer] [facility] Product Blood Type 9500 [facility] PRODUCT CODE [id number] [facility] Unit ABO O [facility] Unit Number [id number] [facility] alth Unit RH Negative [facility] Unit Volume 300 mL [facility] No Panel InformationOrdered By: Farhat Simons on 01-24-2025 Interpretation and review of laboratory results Abnormal [facility] No Panel InformationOrdered By: Anu Graham on 01-24-2025 [facility] PT Coag (Bld) [Time]on 01-24 INR Coag (PPP) [Relative time] 1.5 {INR} High 0.9 - 1.1 [facility] INR Coag (PPP) [Relative time] 1.5 {INR} High 0.9 - 1.1 [facility] Interpretation and review of laboratory results Abnormal [facility] Phosphate [Moles/Vol]on 12-28 Phosphate [Mass/Vol] 5.1 mg/dL High 2.3 - 4 .7 mg/dL [facility] XR Chest Single viewon 01-24 [facility] Radiology Study observation (narrative) [facility] aPTT Coag (Bld) [Time]on aPTT Coag (PPP) [Time] 33.7 s High 20.0 - 30.5 s [facility] aPTT Coag (Bld) [Time]Ordere d By: Callie Steele on 01-24-2025 aPTT Coag (PPP) [Time] 114.7 s High 20.0 - 30.5 s [facility] Interpretation and review of laboratory results Abnormal [facility] Basic metabolic 1998 panelon 01-23-2025 Anion gap [Moles/Vol] 13 mmol/L 3 - 13 mmol/L [facility] Calcium [Mass/Vol] 9.4 mg/dL 8.4 - 10. 2 mg/dL [facility] Chloride [Moles/Vol] 102 mmol/L 98 - 10 7 mmol/L [facility] CO2 [Moles/Vol] 25 mmol/L 22 - 29 mmol/L [facility] Creatinine [Mass/Vol] 2.34 mg/dL High 0.72 - 1.25 mg/dL [facility] GFR/1.73 sq M.predicted (S/P/Bld) [Vol rate/Area] 31.3 mL/min Low - PINF [facility] Glucose [Mass/Vol] 80 mg/dL 74 - 100 mg/dL [facility] Interpretation and review of laboratory results Abnormal [facility] Potassium [Moles/Vol] 3.4 mmol/L Low 3.5 - 5.1 mmol/L [facility] Sodium [Moles/Vol] 140 mmol/L 136 - 145 mmol/L [facility] Urea nitrogen [Mass/Vol] 22 mg/dL 9 - 23 mg/d L [facility] CBC W Auto Differential pane l (Bld)on 01-23-2025 Basophils (Bld) [#/Vol] 0.1 10*3/uL 0.0 - 0.2 10*3/uL [facility] Basophils/100 WBC (Bld) 1 % 0.0 - 2.0 % [facility] Eosinophils (Bld) [#/Vol] 0.7 10*3/uL High 0.0 - 0.5 10*3/uL [facility] Eosinophils/100 WBC (Bld) 6.8 % High 0.0 - 6.0 % [facility] Erythrocyte distribution width (RBC) [Ratio] 18.8 % High 11.5 - 15.0 % [facility] Hematocrit (Bld) [Volume fraction] 25.3 % Low 40.0 - 52.0 % [facility] Hemoglobin (Bld) [Mass/Vol] 7.9 g/dL Low 13.0 - 18.0 g/dL [facility] Immature granulocytes (Bld) [#/Vol] 0.1 10*3/uL High NINF - 0.1 10*3/uL [facility] Immature granulocytes/100 WBC (Bld) 1.1 % 0.0 - 2.0 % [facility] Interpretation and review of laboratory results Abnormal [facility] Lymphocytes (Bld) [#/Vol] 1.5 10*3/uL 1.0 - 4.3 10*3/uL [facility] Lymphocytes/100 WBC (Bld) 13.7 % Low 15.0 - 45.0 % [facility] MCH (RBC) [Entitic mass] 27.9 pg 26. 0 - 34.0 pg [facility] MCHC (RBC) [Mass/Vol] 31.2 % 30.5 - 36.0 % [facility] MCV (RBC) [Entitic vol] 89.4 fL 77.0 - 99.0 fL [facility] Monocytes (Bld) [#/Vol] 1.5 10*3/uL High 0.0 - 0.9 10*3/uL [facility] Monocytes/100 WBC (Bld) 13.7 % High 5.0 - 13.0 % [facility] Neutrophils (Bld) [#/Vol] 7 10*3/uL 1.8 - 7.5 10*3/uL [facility] Neutrophils/100 WBC (Bld) 63.7 % 38.0 - 82.0 % [facility] Nucleated RBC/100 WBC (Bld) [Ratio] 0 % [facility] Platelet mean volume (Bld) [Entitic vol] 9.4 fL 9.0 - 12.7 fL [facility] Platelets (Bld) [#/Vol] 346 10*3/uL 140 - 440 10*3/uL [facility] RBC (Bld) [#/Vol] 2.83 10*6/uL Low 4.40 - 5.9 0 10*6/uL [facility] WBC (Bld) [#/Vol] 10.9 10*3/uL High 3.6 - 10.7 10*3/uL [facility] Basophils (Bld) [#/Vol] 0.1 10*3/uL 0.0 - 0.2 10*3/uL [facility] Basophils/100 WBC (Bld) 1.1 % 0.0 - 2.0 % [facility] Eosinophils (Bld) [#/Vol] 0.9 10*3/uL High 0.0 - 0.5 10*3/uL [facility] Eosinophils/100 WBC (Bld) 8 % High 0.0 - 6.0 % [facility] Erythrocyte distribution width (RBC) [Ratio] 18.5 % High 11.5 - 15.0 % [facility] Hematocrit (Bld) [Volume fraction] 23.4 % Low 40.0 - 52.0 % [facility] Hemoglobin (Bld) [Mass/Vol] 7.3 g/dL Low 13.0 - 18.0 g/dL [facility] Immature granulocytes (Bld) [#/Vol] 0.1 10*3/uL High NINF - 0.1 10*3/uL [facility] Immature granulocytes/100 WBC (Bld) 1.1 % 0.0 - 2.0 % [facility] Interpretation and review of laboratory results Abnormal [facility] Lymphocytes (Bld) [#/Vol] 1.4 10*3/uL 1.0 - 4.3 10*3/uL [facility] Lymphocytes/100 WBC (Bld) 12.2 % Low 15.0 - 45.0 % [facility] MCH (RBC) [Entitic mass] 27.7 pg 26. 0 - 34.0 pg [facility] MCHC (RBC) [Mass/Vol] 31.2 % 30.5 - 36.0 % [facility] MCV (RBC) [Entitic vol] 88.6 fL 77.0 - 99.0 fL [facility] Monocytes (Bld) [#/Vol] 1.4 10*3/uL High 0.0 - 0.9 10*3/uL [facility] Monocytes/100 WBC (Bld) 12.9 % 5.0 - 13.0 % [facility] Neutrophils (Bld) [#/Vol] 7.2 10*3/uL 1.8 - 7.5 10*3/uL [facility] Neutrophils/100 WBC (Bld) 64.7 % 38.0 - 82.0 % [facility] Nucleated RBC/100 WBC (Bld) [Ratio] 0 % [facility] Platelet mean volume (Bld) [Entitic vol] 9.1 fL 9.0 - 12.7 fL [facility] Platelets (Bld) [#/Vol] 345 10*3/uL 140 - 440 10*3/uL [facility] RBC (Bld) [#/Vol] 2.64 10*6/uL Low 4.40 - 5.9 0 10*6/uL [facility] WBC (Bld) [#/Vol] 11.1 10*3/uL High 3.6 - 10.7 10*3/uL [facility] Hemoglobin (Bld) [Mass/Vol]o n 01-23-2025 Hematocrit (Bld) [Volume fraction] 25.1 % Low 40.0 - 52.0 % [facility] Interpretation and review of laboratory results Abnormal [facility] Laboratory - Chemistry and C hemistry - challengeon 01-23-2025 Glucose [Mass/Vol] 113 mg/dL High 70 - 100 mg/dL [facility] Glucose [Mass/Vol] 92 mg/dL 70 - 100 mg/dL [facility] Magnesium [Mass/Vol] 2.1 mg/dL 1.6 - 2 .6 mg/dL [facility] Laboratory - Coagulationon 0 01-23-2025 aPTT Coag (PPP) [Time] 30.6 s High 20.0 - 30.5 s [facility] INR Coag (PPP) [Relative time] 1.6 {INR} High 0.9 - 1.1 [facility] PT Coag (Bld) [Time] 16.1 s High 9.0 - 12.0 s [facility] PT Coag (Bld) [Time] 20 s High 9.0 - 12.0 s [facility] Laboratory - Hematology and Cell countson 01-23-2025 Hemoglobin (Bld) [Mass/Vol] 7.9 g/dL Low 13.0 - 18.0 g/dL [facility] Magnesium [Mass/Vol]on 01-23 Interpretation and review of laboratory results Normal [facility] No Panel Informationon 01-23 Interpretation and review of laboratory results Abnormal [facility] Interpretation and review of laboratory results Abnormal [facility] Interpretation and review of laboratory results Normal [facility] PT Coag (Bld) [Time]on 01-23 INR Coag (PPP) [Relative time] 2 {INR} High 0.9 - 1.1 [facility] Interpretation and review of laboratory results Abnormal [facility] Phosphate [Moles/Vol]Ordered By: Jenni Romano on 01-23-2025 Interpretation and review of laboratory results Normal [facility] Phosphate [Mass/Vol] 4.5 mg/dL 2.3 - 4 .7 mg/dL [facility] Basic metabolic 1998 panelOr dered By: Nathaly Dobson on 01-22-2025 Anion gap [Moles/Vol] 13 mmol/L 3 - 13 mmol/L [facility] Calcium [Mass/Vol] 9.8 mg/dL 8.4 - 10. 2 mg/dL [facility] Chloride [Moles/Vol] 94 mmol/L Low 98 - 10 7 mmol/L [facility] CO2 [Moles/Vol] 25 mmol/L 22 - 29 mmol/L [facility] Creatinine [Mass/Vol] 4.18 mg/dL High 0.72 - 1.25 mg/dL [facility] GFR/1.73 sq M.predicted (S/P/Bld) [Vol rate/Area] 15.6 mL/min Low - PINF [facility] Glucose [Mass/Vol] 70 mg/dL Low 74 - 100 mg/dL [facility] Interpretation and review of laboratory results Abnormal [facility] Potassium [Moles/Vol] 4.4 mmol/L 3.5 - 5.1 mmol/L [facility] Sodium [Moles/Vol] 132 mmol/L Low 136 - 145 mmol/L [facility] Urea nitrogen [Mass/Vol] 53 mg/dL High 9 - 23 mg/d L [facility] CBC W Auto Differential pane l (Bld)Ordered By: Tiffanie Chand on 01-22-2025 Basophils (Bld) [#/Vol] 0.1 10*3/uL 0.0 - 0.2 10*3/uL [facility] Basophils/100 WBC (Bld) 0.8 % 0.0 - 2.0 % [facility] Eosinophils (Bld) [#/Vol] 0.7 10*3/uL High 0.0 - 0.5 10*3/uL [facility] Eosinophils/100 WBC (Bld) 6.1 % High 0.0 - 6.0 % [facility] Erythrocyte distribution width (RBC) [Ratio] 18.4 % High 11.5 - 15.0 % [facility] Hematocrit (Bld) [Volume fraction] 23.9 % Low 40.0 - 52.0 % [facility] Hemoglobin (Bld) [Mass/Vol] 7.4 g/dL Low 13.0 - 18.0 g/dL [facility] Immature granulocytes (Bld) [#/Vol] 0.1 10*3/uL High NINF - 0.1 10*3/uL [facility] Immature granulocytes/100 WBC (Bld) 1.1 % 0.0 - 2.0 % [facility] Interpretation and review of laboratory results Abnormal [facility] Lymphocytes (Bld) [#/Vol] 1 10*3/uL 1.0 - 4.3 10*3/uL [facility] Lymphocytes/100 WBC (Bld) 9.7 % Low 15.0 - 45.0 % [facility] MCH (RBC) [Entitic mass] 27.5 pg 26. 0 - 34.0 pg [facility] MCHC (RBC) [Mass/Vol] 31 % 30.5 - 36.0 % [facility] MCV (RBC) [Entitic vol] 88.8 fL 77.0 - 99.0 fL [facility] Monocytes (Bld) [#/Vol] 1.5 10*3/uL High 0.0 - 0.9 10*3/uL [facility] Monocytes/100 WBC (Bld) 14.5 % High 5.0 - 13.0 % [facility] Neutrophils (Bld) [#/Vol] 7.2 10*3/uL 1.8 - 7.5 10*3/uL [facility] Neutrophils/100 WBC (Bld) 67.8 % 38.0 - 82.0 % [facility] Nucleated RBC/100 WBC (Bld) [Ratio] 0 % [facility] Platelet mean volume (Bld) [Entitic vol] 8.2 fL Low 9.0 - 12.7 fL [facility] Platelets (Bld) [#/Vol] 292 10*3/uL 140 - 440 10*3/uL [facility] RBC (Bld) [#/Vol] 2.69 10*6/uL Low 4.40 - 5.9 0 10*6/uL [facility] WBC (Bld) [#/Vol] 10.6 10*3/uL 3.6 - 10.7 10*3/uL [facility] CBC W Auto Differential pane l (Bld)on 01-22-2025 Basophils (Bld) [#/Vol] 0.1 10*3/uL 0.0 - 0.2 10*3/uL [facility] Basophils/100 WBC (Bld) 1.1 % 0.0 - 2.0 % [facility] Eosinophils (Bld) [#/Vol] 0.8 10*3/uL High 0.0 - 0.5 10*3/uL [facility] Eosinophils/100 WBC (Bld) 7.9 % High 0.0 - 6.0 % [facility] Erythrocyte distribution width (RBC) [Ratio] 18.6 % High 11.5 - 15.0 % [facility] Hematocrit (Bld) [Volume fraction] 25.1 % Low 40.0 - 52.0 % [facility] Hemoglobin (Bld) [Mass/Vol] 8 g/dL Low 13.0 - 18.0 g/dL [facility] Immature granulocytes (Bld) [#/Vol] 0.1 10*3/uL High NINF - 0.1 10*3/uL [facility] Immature granulocytes/100 WBC (Bld) 0.8 % 0.0 - 2.0 % [facility] Interpretation and review of laboratory results Abnormal [facility] Lymphocytes (Bld) [#/Vol] 1.5 10*3/uL 1.0 - 4.3 10*3/uL [facility] Lymphocytes/100 WBC (Bld) 14.1 % Low 15.0 - 45.0 % [facility] MCH (RBC) [Entitic mass] 27.7 pg 26. 0 - 34.0 pg [facility] MCHC (RBC) [Mass/Vol] 31.9 % 30.5 - 36.0 % [facility] MCV (RBC) [Entitic vol] 86.9 fL 77.0 - 99.0 fL [facility] Monocytes (Bld) [#/Vol] 1.5 10*3/uL High 0.0 - 0.9 10*3/uL [facility] Monocytes/100 WBC (Bld) 14 % High 5.0 - 13.0 % [facility] Neutrophils (Bld) [#/Vol] 6.6 10*3/uL 1.8 - 7.5 10*3/uL [facility] Neutrophils/100 WBC (Bld) 62.1 % 38.0 - 82.0 % [facility] Nucleated RBC/100 WBC (Bld) [Ratio] 0 % [facility] Platelet mean volume (Bld) [Entitic vol] 8.8 fL Low 9.0 - 12.7 fL [facility] Platelets (Bld) [#/Vol] 330 10*3/uL 140 - 440 10*3/uL [facility] RBC (Bld) [#/Vol] 2.89 10*6/uL Low 4.40 - 5.9 0 10*6/uL [facility] WBC (Bld) [#/Vol] 10.6 10*3/uL 3.6 - 10.7 10*3/uL [facility] Coagulation index TEG Qn [...] 36 mm High 7 - 24 mm [facility] Clotting time.extrinsic coagulation system activated.fibrinolysis suppressed Rotational TEG (Bld) 232 s High 43 - 82 s [facility] Interpretation and review of laboratory results Abnormal [facility] Maximum clot firmness.extrinsic coagulation system activated.fibrinolysis suppressed Rotational TEG (Bld) [Length] 75 mm High 52 - 70 mm [facility] Hemoglobin (Bld) [Mass/Vol]o n 01-22-2025 Hematocrit (Bld) [Volume fraction] 24.5 % Low 40.0 - 52.0 % [facility] Interpretation and review of laboratory results Abnormal [facility] Hepatic function 2000 panelo n 01-22-2025 Albumin [Mass/Vol] 2.2 g/dL Low 3.5 - 5.0 g/dL [facility] ALP [Catalytic activity/Vol] 274 U/L High 40 - 150 U/L [facility] ALT [Catalytic activity/Vol] 44 U/L [facility] [place] AST [Catalytic activity/Vol] 51 U/L [place] [facility] [place] - 34 U/L [facility] Bilirubin [Mass/Vol] 0.9 mg/dL [facility] [place] - 1.2 mg/dL [facility] Bilirubin.conjugated [Mass/Vol] 0.7 mg/dL High [facility] [place] - 0.5 mg/dL [facility] Protein [Mass/Vol] 7.6 g/dL 6.4 - 8.3 g/dL [facility] Laboratory - Chemistry and C hemistry - challengeon 01-22-2025 Glucose [Mass/Vol] 101 mg/dL High 70 - 100 mg/dL [facility] Glucose [Mass/Vol] 77 mg/dL 70 - 100 mg/dL [facility] Glucose [Mass/Vol] 81 mg/dL 70 - 100 mg/dL [facility] Magnesium [Mass/Vol] 2.6 mg/dL 1.6 - 2 .6 mg/dL [facility] Glucose [Mass/Vol] 82 mg/dL 70 - 100 mg/dL [facility] Laboratory - Coagulationon 0 01-22-2025 aPTT Coag (PPP) [Time] 42.7 s High 20.0 - 30.5 s [facility] INR Coag (PPP) [Relative time] 3.1 {INR} High 0.9 - 1.1 [facility] PT Coag (Bld) [Time] 31 s High 9.0 - 12.0 s [facility] Fibrin D-dimer FEU (PPP) [Mass/Vol] 14.21 mg/L High NINF - 0.50 mg/L [facility] Fibrinogen Coag (PPP) [Mass/Vol] 436 mg/dL High 200 - 400 mg/dL [facility] Laboratory - CoagulationOrde red By: Maggy Lancaster on 01-22-2025 aPTT Coag (PPP) [Time] 48.1 s High 20.0 - 30.5 s [facility] INR Coag (PPP) [Relative time] 5.5 {INR} Critically high 0.9 - 1.1 [facility] PT Coag (Bld) [Time] 52.6 s High 9.0 - 12.0 s [facility] Laboratory - CoagulationOrde red By: Michelle Olmstead on 01-22-2025 PT Coag (Bld) [Time] 75.4 s High 9.0 - 12.0 s [facility] Laboratory - Hematology and Cell countson 01-22-2025 Hemoglobin (Bld) [Mass/Vol] 7.7 g/dL Low 13.0 - 18.0 g/dL [facility] Magnesium [Mass/Vol]on 01-22 Interpretation and review of laboratory results Normal [facility] No Panel Informationon 01-22 Interpretation and review of laboratory results Abnormal [facility] Interpretation and review of laboratory results Abnormal [facility] Blood Expiration Date [id number] [facility] Dispense Status Transfused [facility] Product Blood Type 6200 [facility] PRODUCT CODE [id number] [facility] Unit ABO A [facility] Unit Number [id number] [facility] Unit RH Positive [facility] Unit Volume 209 ml [facility] Interpretation and review of laboratory results Normal [facility] Interpretation and review of laboratory results Normal [facility] Interpretation and review of laboratory results Abnormal [facility] Interpretation and review of laboratory results Abnormal [facility] Interpretation and review of laboratory results Normal [facility] No Panel InformationOrdered By: Maggy Lancaster on 01-22-2025 Interpretation and review of laboratory results Abnormal [facility] PT Coag (Bld) [Time]Ordered By: Michelle Olmstead on 01-22-2025 INR Coag (PPP) [Relative time] 8.1 {INR} Critically high 0.9 - 1.1 [facility] Interpretation and review of laboratory results Abnormal [facility] Phosphate [Moles/Vol]on 12-27 Phosphate [Mass/Vol] 6.8 mg/dL High 2.3 - 4 .7 mg/dL [facility] aPTT Coag (Bld) [Time]on aPTT Coag (PPP) [Time] 46 s High 20.0 - 30.5 s [facility] Basic metabolic 1998 panelOr dered By: Jarred José on 01-21-2025 Anion gap [Moles/Vol] 15 mmol/L High 3 - 13 mmol/L [facility] Calcium [Mass/Vol] 9.9 mg/dL 8.4 - 10. 2 mg/dL [facility] Chloride [Moles/Vol] 96 mmol/L Low 98 - 10 7 mmol/L [facility] CO2 [Moles/Vol] 24 mmol/L 22 - 29 mmol/L [facility] Creatinine [Mass/Vol] 2.99 mg/dL High 0.72 - 1.25 mg/dL [facility] GFR/1.73 sq M.predicted (S/P/Bld) [Vol rate/Area] 23.3 mL/min Low - PINF [facility] Glucose [Mass/Vol] 60 mg/dL Low 74 - 100 mg/dL [facility] Interpretation and review of laboratory results Abnormal [facility] Potassium [Moles/Vol] 4.3 mmol/L 3.5 - 5.1 mmol/L [facility] Sodium [Moles/Vol] 135 mmol/L Low 136 - 145 mmol/L [facility] Urea nitrogen [Mass/Vol] 46 mg/dL High 9 - 23 mg/d L [facility] CBC W Auto Differential pane l (Bld)on 01-21-2025 Basophils (Bld) [#/Vol] 0.1 10*3/uL 0.0 - 0.2 10*3/uL [facility] Basophils/100 WBC (Bld) 1 % 0.0 - 2.0 % [facility] Eosinophils (Bld) [#/Vol] 0.4 10*3/uL 0.0 - 0.5 10*3/uL [facility] Eosinophils/100 WBC (Bld) 3.8 % 0.0 - 6.0 % [facility] Erythrocyte distribution width (RBC) [Ratio] 18.6 % High 11.5 - 15.0 % [facility] Hematocrit (Bld) [Volume fraction] 27.3 % Low 40.0 - 52.0 % [facility] Hemoglobin (Bld) [Mass/Vol] 8.3 g/dL Low 13.0 - 18.0 g/dL [facility] Immature granulocytes (Bld) [#/Vol] 0.1 10*3/uL High NINF - 0.1 10*3/uL [facility] Immature granulocytes/100 WBC (Bld) 1.2 % 0.0 - 2.0 % [facility] Interpretation and review of laboratory results Abnormal [facility] Lymphocytes (Bld) [#/Vol] 1.7 10*3/uL 1.0 - 4.3 10*3/uL [facility] Lymphocytes/100 WBC (Bld) 16.5 % 15.0 - 45.0 % [facility] MCH (RBC) [Entitic mass] 27 pg 26. 0 - 34.0 pg [facility] MCHC (RBC) [Mass/Vol] 30.4 % Low 30.5 - 36.0 % [facility] MCV (RBC) [Entitic vol] 88.9 fL 77.0 - 99.0 fL [facility] Monocytes (Bld) [#/Vol] 1.4 10*3/uL High 0.0 - 0.9 10*3/uL [facility] Monocytes/100 WBC (Bld) 14.3 % High 5.0 - 13.0 % [facility] Neutrophils (Bld) [#/Vol] 6.4 10*3/uL 1.8 - 7.5 10*3/uL [facility] Neutrophils/100 WBC (Bld) 63.2 % 38.0 - 82.0 % [facility] Nucleated RBC/100 WBC (Bld) [Ratio] 0 % [facility] Platelet mean volume (Bld) [Entitic vol] 8.7 fL Low 9.0 - 12.7 fL [facility] Platelets (Bld) [#/Vol] 365 10*3/uL 140 - 440 10*3/uL [facility] RBC (Bld) [#/Vol] 3.07 10*6/uL Low 4.40 - 5.9 0 10*6/uL [facility] WBC (Bld) [#/Vol] 10.1 10*3/uL 3.6 - 10.7 10*3/uL [facility] CBC panel Auto (Bld)Ordered By: Piedad Alvarado on 01-21-2025 Erythrocyte distribution width (RBC) [Ratio] 18.6 % High 11.5 - 15.0 % [facility] Hematocrit (Bld) [Volume fraction] 25.3 % Low 40.0 - 52.0 % [facility] Hemoglobin (Bld) [Mass/Vol] 8 g/dL Low 13.0 - 18.0 g/dL [facility] Interpretation and review of laboratory results Abnormal [facility] MCH (RBC) [Entitic mass] 27.7 pg 26. 0 - 34.0 pg [facility] MCHC (RBC) [Mass/Vol] 31.6 % 30.5 - 36.0 % [facility] MCV (RBC) [Entitic vol] 87.5 fL 77.0 - 99.0 fL [facility] Platelet mean volume (Bld) [Entitic vol] 9.1 fL 9.0 - 12.7 fL [facility] Platelets (Bld) [#/Vol] 353 10*3/uL 140 - 440 10*3/uL [facility] RBC (Bld) [#/Vol] 2.89 10*6/uL Low 4.40 - 5.9 0 10*6/uL [facility] WBC (Bld) [#/Vol] 9.2 10*3/uL 3.6 - 10.7 10*3/uL [facility] Hemoglobin (Bld) [Mass/Vol]o n 01-21-2025 Hematocrit (Bld) [Volume fraction] 22.4 % Low 40.0 - 52.0 % [facility] Interpretation and review of laboratory results Abnormal [facility] Laboratory - Chemistry and C hemistry - challengeon 01-21-2025 Glucose [Mass/Vol] 86 mg/dL 70 - 100 mg/dL [facility] Glucose [Mass/Vol] 92 mg/dL 70 - 100 mg/dL [facility] Glucose [Mass/Vol] 92 mg/dL 70 - 100 mg/dL [facility] Glucose [Mass/Vol] 107 mg/dL High 70 - 100 mg/dL [facility] Glucose [Mass/Vol] 129 mg/dL High 70 - 100 mg/dL [facility] Glucose [Mass/Vol] 67 mg/dL Low 70 - 100 mg/dL [facility] Magnesium [Mass/Vol] 2.5 mg/dL 1.6 - 2 .6 mg/dL [facility] Glucose [Mass/Vol] 74 mg/dL 70 - 100 mg/dL [facility] Laboratory - CoagulationOrde red By: Treva Mcfarland on 01-21-2025 PT Coag (Bld) [Time] 73.5 s High 9.0 - 12.0 s [facility] Laboratory - Hematology and Cell countson 01-21-2025 Hemoglobin (Bld) [Mass/Vol] 7.1 g/dL Low 13.0 - 18.0 g/dL [facility] Magnesium [Mass/Vol]on 01-21 Interpretation and review of laboratory results Normal [facility] No Panel Informationon 01-21 Interpretation and review of laboratory results Normal [facility] Interpretation and review of laboratory results Normal [facility] Interpretation and review of laboratory results Normal [facility] Interpretation and review of laboratory results Abnormal [facility] Interpretation and review of laboratory results Abnormal [facility] Interpretation and review of laboratory results Abnormal [facility] Interpretation and review of laboratory results Normal [facility] PT Coag (Bld) [Time]Ordered By: Treva Mcfarland on 01-21-2025 INR Coag (PPP) [Relative time] 7.9 {INR} Critically high 0.9 - 1.1 [facility] Interpretation and review of laboratory results Abnormal [facility] Phosphate [Moles/Vol]on 12-27 Interpretation and review of laboratory results Abnormal [facility] Phosphate [Mass/Vol] 5.3 mg/dL High 2.3 - 4 .7 mg/dL [facility] Basic metabolic 1998 panelon 01-20-2025 Anion gap [Moles/Vol] 15 mmol/L High 3 - 13 mmol/L [facility] Calcium [Mass/Vol] 9.2 mg/dL 8.4 - 10. 2 mg/dL [facility] Chloride [Moles/Vol] 98 mmol/L 98 - 10 7 mmol/L [facility] CO2 [Moles/Vol] 22 mmol/L 22 - 29 mmol/L [facility] Creatinine [Mass/Vol] 4.31 mg/dL High 0.72 - 1.25 mg/dL [facility] GFR/1.73 sq M.predicted (S/P/Bld) [Vol rate/Area] 15 mL/min Low - PINF [facility] Glucose [Mass/Vol] 68 mg/dL Low 74 - 100 mg/dL [facility] Interpretation and review of laboratory results Abnormal [facility] Potassium [Moles/Vol] 4.8 mmol/L 3.5 - 5.1 mmol/L [facility] Sodium [Moles/Vol] 135 mmol/L Low 136 - 145 mmol/L [facility] Urea nitrogen [Mass/Vol] 91 mg/dL High 9 - 23 mg/d L [facility] Blood type and Crossmatch greg freida (Bld)on 01-20-2025 ABO group Nom (Bld) O [facility] Blood group antibody screen GEL Ql Negative [facility] D Ag Ql (RBC) Negative [facility] CBC W Auto Differential pane l (Bld)Ordered By: Haley Vitale on 01-20-2025 Basophils (Bld) [#/Vol] 0.1 10*3/uL 0.0 - 0.2 10*3/uL [facility] Basophils/100 WBC (Bld) 1.1 % 0.0 - 2.0 % [facility] Eosinophils (Bld) [#/Vol] 0.5 10*3/uL 0.0 - 0.5 10*3/uL [facility] Eosinophils/100 WBC (Bld) 4.5 % 0.0 - 6.0 % [facility] Erythrocyte distribution width (RBC) [Ratio] 18.3 % High 11.5 - 15.0 % [facility] Hematocrit (Bld) [Volume fraction] 21.3 % Low 40.0 - 52.0 % [facility] Hemoglobin (Bld) [Mass/Vol] 6.6 g/dL Critically low 13.0 - 18.0 g/dL [facility] Immature granulocytes (Bld) [#/Vol] 0.1 10*3/uL High NINF - 0.1 10*3/uL [facility] Immature granulocytes/100 WBC (Bld) 1 % 0.0 - 2.0 % [facility] Interpretation and review of laboratory results Abnormal [facility] Lymphocytes (Bld) [#/Vol] 1.2 10*3/uL 1.0 - 4.3 10*3/uL [facility] Lymphocytes/100 WBC (Bld) 11.6 % Low 15.0 - 45.0 % [facility] MCH (RBC) [Entitic mass] 27.4 pg 26. 0 - 34.0 pg [facility] MCHC (RBC) [Mass/Vol] 31 % 30.5 - 36.0 % [facility] MCV (RBC) [Entitic vol] 88.4 fL 77.0 - 99.0 fL [facility] Monocytes (Bld) [#/Vol] 1.1 10*3/uL High 0.0 - 0.9 10*3/uL [facility] Monocytes/100 WBC (Bld) 10.1 % 5.0 - 13.0 % [facility] Neutrophils (Bld) [#/Vol] 7.5 10*3/uL 1.8 - 7.5 10*3/uL [facility] Neutrophils/100 WBC (Bld) 71.7 % 38.0 - 82.0 % [facility] Nucleated RBC/100 WBC (Bld) [Ratio] 0 % [facility] Platelet mean volume (Bld) [Entitic vol] 9 fL 9.0 - 12.7 fL [facility] Platelets (Bld) [#/Vol] 279 10*3/uL 140 - 440 10*3/uL [facility] RBC (Bld) [#/Vol] 2.41 10*6/uL Low 4.40 - 5.9 0 10*6/uL [facility] WBC (Bld) [#/Vol] 10.5 10*3/uL 3.6 - 10.7 10*3/uL [facility] CT Abdomen and Pelvis W cont rast Dimitrios 01-20-2025 [facility] Radiology Study observation (narrative) [facility] CT Abdomen and Pelvis W cont rast IVOrdered By: Karly Parker on 01-20-2025 [facility] Work Phone: Hemoglobin (Bld) [Mass/Vol]o n 01-20-2025 Hematocrit (Bld) [Volume fraction] 25.8 % Low 40.0 - 52.0 % [facility] Interpretation and review of laboratory results Abnormal [facility] Hematocrit (Bld) [Volume fraction] 25.7 % Low 40.0 - 52.0 % [facility] Interpretation and review of laboratory results Abnormal [facility] Hematocrit (Bld) [Volume fraction] 25.8 % Low 40.0 - 52.0 % [facility] Interpretation and review of laboratory results Abnormal [facility] Laboratory - Chemistry and C hemistry - challengeon 01-20-2025 Magnesium [Mass/Vol] 2.8 mg/dL High 1.6 - 2 .6 mg/dL [facility] Laboratory - Hematology and Cell countson 01-20-2025 Hemoglobin (Bld) [Mass/Vol] 8.3 g/dL Low 13.0 - 18.0 g/dL [facility] Hemoglobin (Bld) [Mass/Vol] 8.2 g/dL Low 13.0 - 18.0 g/dL [facility] Hemoglobin (Bld) [Mass/Vol] 8.2 g/dL Low 13.0 - 18.0 g/dL [facility] Magnesium [Mass/Vol]on 01-20 [facility] No Panel Informationon 01-20 Interpretation and review of laboratory results Abnormal [facility] Phosphate [Moles/Vol]on 12-27 Phosphate [Mass/Vol] 6.1 mg/dL High 2.3 - 4 .7 mg/dL [facility] No Panel Informationon 01-19 P [place] 69 degrees [facility] NV Interval 148 ms [facility] QRS [place] 93 degrees [facility] QRSD Interval 113 ms [facility] QT Interval 413 ms [facility] QTC Interval 515 ms [facility] T Wave [place] 87 degrees [facility] CV EPIPHANY [facility] 4h Troponin HS (Serial 3rd Troponin) 94 ng/L High NINF - 35 ng/L [facility] Interpretation and review of laboratory results Abnormal [facility] 2h Troponin HS (Serial 2nd Troponin) 106 ng/L High NINF - 35 ng/L [facility] Interpretation and review of laboratory results Abnormal [facility] Vital signson 01-19-2025 Heart rate 93 /min bpm [facility] Airwayon 10-12-2024 Rudolph German CRNA 10/12/2024 7:56 AM Airway Date/Time: 10/12/2024 7:38 AM Urgency: scheduled Airway not difficult General Information and Staff Patient location during procedure: Procedural Anesthesiologist: Vincent Wilson MD Resident/RIVET BUCKER: Rudolph German CRNA Performed: anesthesiologist Indications and [...] 21 Number of attempts at approach: 1 [facility] Arterial Lineon 10-12-2024 Rudolph German CRNA [...] procedure well with no complications. Staffing Performed: RIVET BUCKER Resident/RIVET BUCKER: Rudolph German CRNA [facility] Central Venous Lineon 2024 Rudolph [...] during the procedure: no complications. Staffing Performed: RIVET BUCKER Resident/RIVET BUCKER: Rudolph German CRNA [facility] No Panel Informationon 10-[address] [facility] [address] Head WO contraston 2024 No acute intracranial hemorrhage or large territorial infarct. 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 Pneumatized secretions within the maxillary sinuses may correspond with acute sinusitis in the appropriate clinical setting. 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 IMPRESSION: No acute intracranial hemorrhage or large territorial infarct. 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 Pneumatized secretions within the maxillary sinuses may correspond with acute sinusitis in the appropriate clinical setting. Report Dictated on Electronically Signed By: Yvonne Abraham DO Electronically Signed Date/Time: 10/03/2024 2:14 PM EST [facility] Radiology Study observation (narrative) [facility] Head WO contrastOrdered B y: Yvonne Abraham on 10-03-2024 [facility] Work Phone: XR Chest Single viewon 10-03 No focal consolidation or pulmonary edema. Report Dictated on Electronically Signed By: Bob Ken MD Electronically Signed Date/Time: 10/03/2024 12:22 PM [facility] Patient Name: JUN [...] change of the thoracic spine is noted. [facility] Bob Ken MD - 10/03/2024 [...] Electronically Signed Date/Time: 10/03/2024 12:22 PM EST [facility] Radiology Study observation (narrative) [employer] XR Chest Single viewOrdered By: Bob Ken on 10-03-2024 [facility] [employer] Work Phone: ECG 12 leadon 08-28-2024 Sinus Rhythm -Incomplete right bundle branch block. -Left atrial enlargement. Voltage criteria for LVH (S(V1)+R(V6) exceeds 3.50 mV). -ST depression -Seen with left ventricular hypertrophy (strain) -consider ischemia. [facility] CNPNon 04-12-2024 CNPN Telephone (TXCTGL) JUN SNYDER ([id number]) 1965 M Date Time Provider Department 04/12/24 [...] Status:Closed by LANIE LUIS on 04/12/24 Normal [facility] ECG 12 leadon 11-12-2023 Sinus Rhythm -Left atrial enlargement. IRBBB LVH with repolarization ABNORMAL [facility] ECG 12 leadOrdered By: Michaela Coombs on 11-12-2023 [facility] [employer] Work Phone: Basic metabolic 1998 panelon 08-17-2023 Anion gap [Moles/Vol] 15 mmol/L High 3 - 13 mmol/L [facility] Calcium [Mass/Vol] 8.7 mg/dL 8.4 - 10. 4 mg/dL [facility] Chloride [Moles/Vol] 94 mmol/L Low 98 - 10 7 mmol/L [facility] CO2 [Moles/Vol] 26 mmol/L 22 - 30 mmol/L [facility] Creatinine [Mass/Vol] 6.78 mg/dL High 0.66 - 1.25 mg/dL [facility] GFR/1.73 sq M.predicted MDRD (S/P/Bld) [Vol rate/Area] 8.8 mL/min/{1.73_m2} Low - PINF [facility] Comment on above: Calculation based on the Chronic Kidney Disease Epidemiology Collaboration (CKD-EPI) equation refit without adjustment for race Glucose [Mass/Vol] 102 mg/dL High 70 - 100 mg/dL [facility] Interpretation and review of laboratory results Abnormal [facility] Potassium [Moles/Vol] 5.0 mmol/L 3.5 - 5.1 mmol/L [facility] Sodium [Moles/Vol] 134 mmol/L Low 135 - 145 mmol/L [facility] Urea nitrogen [Mass/Vol] 46 mg/dL High 9 - 20 mg/d L [facility] Laboratory - Chemistry and C hemistry - challengeon 08-17-2023 Magnesium [Mass/Vol] 2.1 mg/dL 1.6 - 2 .3 mg/dL [facility] TSH Qn 0.981 m[IU]/L [facility] TSH Qn 1.190 m[IU]/L [facility] Troponin I.cardiac [Mass/Vol] 0.094 ng/mL High NINF - 0.034 ng/mL [facility] Magnesium [Mass/Vol]on 08-17 Interpretation and review of laboratory results Normal [facility] No Panel InformationOrdered By: Ruy Milton on 08-17-2023 P [place] degrees [employer] Work Phone: NV Interval ms [employer] Work Phone: QRS [place] 61 degrees [employer] Work Phone: QRSD Interval 114 ms [employer] Work Phone: QT Interval 364 ms [employer] Work Phone: QTC Interval 491 ms [employer] Work Phone: T Wave [place] -20 degrees [employer] Work Phone: [employer] Work Phone: No Panel Informationon 08-17 ATRIAL [...] On 08-17-2023 6:57:31 EST by Ruy Milton [facility] TSH Qnon 08-17-2023 Interpretation and review of laboratory results Normal [facility] Interpretation and review of laboratory results Normal [facility] Troponin I.cardiac [Mass/Vol ]on 08-17-2023 Interpretation and review of laboratory results Abnormal [facility] Patients with high levels of Biotin oral intake (ie >5 mg/day) may have falsely decreased Troponin levels. [facility] US Heart TransthoracicOrdere d By: Jr Shah on 08-17-2023 Ao Root Index 1.58 cm/m2 [employer] Work Phone: Aortic Root 3.3 cm [facility] Work Phone: Ascending Aorta 3.3 cm [facility] Work Phone: [phone] Ascending Aorta Index 1.58 cm/m2 [facility] Work Phone: AV Area by Peak Velocity 1.1 cm2 [facility] Work Phone: AV Area by VTI 1.1 cm2 [facility] Work Phone: [phone] AV AT 97.05 ms [facility] Work Phone: [phone] AV Mean Gradient 34 mmHg [facility] Work Phone: [phone] AV Mean Velocity 2.7 m/s [facility] Work Phone: [phone] AV Peak Gradient 59 mmHg [facility] Work Phone: [phone] AV Peak Velocity 3.8 m/s [facility] Work Phone: [phone] AV Velocity Ratio 0.26 [facility] Work Phone: [phone] AV VTI 84.0 cm [facility] Work Phone: [phone] MALU/BSA Peak Velocity 0.5 cm2/m2 [facility] Work Phone: MALU/BSA VTI 0.5 cm2/m2 [facility] Work Phone: [phone] E/E' Lateral 11.44 [facility] Work Phone: E/E' Ratio (Averaged) 13.08 [facility] Work Phone: [phone] E/E' Septal 14.71 [facility] Work Phone: [phone] EF BP 62 % 55 - 100 % [facility] Work Phone: Est. RA Pressure 0 mmHg [facility] Work Phone: Fractional Shortening 2D 30 % 28 - 44 % [facility] Work Phone: Interpretation and review of laboratory results Abnormal [facility] Work Phone: IVC Diameter 1.1 cm [facility] Work Phone: IVSd 1.1 cm Abnormal 0.6 - 1.0 cm [facility] Work Phone: LA Diameter 4.0 cm [facility] Work Phone: LA Size Index 1.91 cm/m2 [facility] Work Phone: LA Volume 2C 66 mL Abnormal 18 - 58 mL [facility] Work Phone: LA Volume 4C 71 mL Abnormal 18 - 58 mL [facility] Work Phone: LA Volume A/L 75 mL [facility] Work Phone: LA Volume BP 69 mL Abnormal 18 - 58 mL [facility] Work Phone: LA Volume Index 2C 32 mL/m2 16 - 34 mL/m2 [facility] Work Phone: LA Volume Index 4C 34 mL/m2 16 - 34 mL/m2 [facility] Work Phone: LA Volume Index A/L 36 mL/m2 16 - 34 mL/m2 [facility] Work Phone: LA Volume Index BP 33 ml/m2 16 - 34 ml/m2 [facility] Work Phone: LA/AO Root Ratio 1.21 [facility] Work Phone: LV E' Lateral Velocity 9 cm/s [facility] Work Phone: LV E' Septal Velocity 7 cm/s [facility] Work Phone: LV EDV A2C 104 mL [facility] Work Phone: LV EDV A4C 89 mL [facility] Work Phone: LV EDV BP 97 mL 67 - 155 mL [facility] Work Phone: LV EDV Index A2C 50 mL/m2 [facility] Work Phone: LV EDV Index A4C 43 mL/m2 [facility] Work Phone: LV EDV Index BP 46 mL/m2 [facility] Work Phone: LV Ejection Fraction A2C 61 % [facility] Work Phone: LV Ejection Fraction A4C 64 % [facility] Work Phone: LV ESV A2C 41 mL [facility] Work Phone: LV ESV A4C 32 mL [facility] Work Phone: LV ESV BP 37 mL 22 - 58 mL [facility] Work Phone: LV ESV Index A2C 20 mL/m2 [facility] Work Phone: LV ESV Index A4C 15 mL/m2 [facility] Work Phone: LV ESV Index BP 18 mL/m2 [facility] Work Phone: LV Mass 2D 173.6 g 88 - 224 g [facility] Work Phone: LV Mass 2D Index 83.1 g/m2 49 - 115 g/m2 [facility] Work Phone: LV RWT Ratio 0.56 [facility] Work Phone: LVIDd 4.3 cm 4.2 - 5.9 cm [facility] Work Phone: LVIDd Index 2.06 cm/m2 [facility] Work Phone: LVIDs 3.0 cm [facility] Work Phone: LVIDs Index 1.44 cm/m2 [facility] Work Phone: LVOT Area 4.2 cm2 [facility] Work Phone: LVOT Cardiac Output 7.6 liter/minute [facility] Work Phone: LVOT Diameter 2.3 cm [facility] Work Phone: LVOT Mean Gradient 2 mmHg [facility] [facility] Work Phone: LVOT Peak Gradient 4 mmHg [facility] Work Phone: LVOT Peak Velocity 1.0 m/s [facility] Work Phone: LVOT Stroke Volume Index 46.5 mL/m2 [facility] Work Phone: LVOT SV 97.2 ml [facility] Work Phone: LVOT VTI 23.4 cm [facility] Work Phone: [phone] LVOT:AV VTI Index 0.28 [facility] Work Phone: [phone] LVPWd 1.2 cm Abnormal 0.6 - 1.0 cm [facility] Work Phone: MV A Velocity 0.79 m/s [facility] Work Phone: [phone] MV Area by PHT 1.9 cm2 [facility] Work Phone: MV E Velocity 1.03 m/s [facility] Work Phone: [phone] MV E Wave Deceleration Time 278.6 ms [facility] Work Phone: [phone] MV E/A 1.30 [facility] Work Phone: [phone] MV Mean Gradient 3 mmHg [facility] Work Phone: [phone] MV Peak Gradient 6 mmHg [facility] Work Phone: MV PHT 113.0 ms [facility] Work Phone: RA Area 4C 79.9 mL [facility] Work Phone: [phone] RA Area 4C 77.7 mL [facility] Work Phone: [phone] RV Basal Dimension 4.6 cm [facility] Work Phone: RV Mid Dimension 3.3 cm [facility] Work Phone: [phone] RVSP 30 mmHg [facility] Work Phone: Sinotubular Junction 3.0 cm [facility] Work Phone: TR Max Velocity 2.72 m/s [facility] Work Phone: TR Peak Gradient 30 mmHg [facility] Work [phone] [facility] [...] sinus rhythm. No contrast was given. CV [facility] Vital signsOrdered By: Anthony Milton on 08-17-2023 Heart rate 109 /min bpm [employer] Work Phone: Basic metabolic 1998 panelon 08-16-2023 Anion gap [Moles/Vol] 15 mmol/L High 3 - 13 mmol/L [facility] [place] Calcium [Mass/Vol] 9.1 mg/dL 8.4 - 10. 4 mg/dL [facility] [place] Chloride [Moles/Vol] 93 mmol/L Low 98 - 10 7 mmol/L [facility] [place] CO2 [Moles/Vol] 25 mmol/L 22 - 30 mmol/L [facility] [place] Creatinine [Mass/Vol] 6.01 mg/dL High 0.66 - 1.25 mg/dL [facility] [place] GFR/1.73 sq M.predicted MDRD (S/P/Bld) [Vol rate/Area] 10.2 mL/min/{1.73_m2} Low - PINF [facility] Comment on above: Calculation based on the Chronic Kidney Disease Epidemiology Collaboration (CKD-EPI) equation refit without adjustment for race Glucose [Mass/Vol] 110 mg/dL High 70 - 100 mg/dL [facility] Interpretation and review of laboratory results Abnormal [facility] [place] Potassium [Moles/Vol] 4.5 mmol/L 3.5 - 5.1 mmol/L [facility] [place] Sodium [Moles/Vol] 133 mmol/L Low 135 - 145 mmol/L [facility] [place] Urea nitrogen [Mass/Vol] 40 mg/dL High 9 - 20 mg/d L [facility] CBC W Auto Differential pane l (Bld)Ordered By: Aric Montejo on 08-16-2023 Basophils (Bld) [#/Vol] 0.1 10*3/uL 0.0 - 0.2 10*3/uL [facility] [place] Basophils/100 WBC (Bld) 1.3 % 0.0 - 2.0 % [facility] [place] Eosinophils (Bld) [#/Vol] 0.5 10*3/uL 0.0 - 0.5 10*3/uL [facility] [place] Eosinophils/100 WBC (Bld) 5.1 % 1.0 - 6.0 % [facility] [place] Erythrocyte distribution width (RBC) [Ratio] 14.7 % High 11.5 - 14.5 % [facility] [place] Hematocrit (Bld) [Volume fraction] 41.6 % 40.0 - 52.0 % [facility] [place] Hemoglobin (Bld) [Mass/Vol] 14.5 g/dL 13.0 - 18.0 g/dL [facility] Interpretation and review of laboratory results Abnormal [facility] Lymphocytes (Bld) [#/Vol] 1.3 10*3/uL 1.0 - 4.3 10*3/uL [facility] Lymphocytes/100 WBC (Bld) 14.2 % Low 20.0 - 40.0 % [facility] MCH (RBC) [Entitic mass] 31.5 pg 26. 0 - 34.0 pg [facility] MCHC (RBC) [Mass/Vol] 34.8 % 32.0 - 36.0 % [facility] MCV (RBC) [Entitic vol] 90.5 fL 80.0 - 98.0 fL [facility] Monocytes (Bld) [#/Vol] 1.3 10*3/uL High 0.0 - 0.8 10*3/uL [facility] Monocytes/100 WBC (Bld) 13.5 % High 2.0 - 10.0 % [facility] Neutrophils (Bld) [#/Vol] 6.2 10*3/uL 1.8 - 7.0 10*3/uL [facility] Neutrophils/100 WBC (Bld) 65.9 % 40.0 - 80.0 % [facility] Nucleated RBC/100 WBC (Bld) [Ratio] 0.1 % [facility] [place] Platelet mean volume (Bld) [Entitic vol] 7.3 fL Low 7.4 - 12.4 fL [facility] Platelets (Bld) [#/Vol] 254 10*3/uL 140 - 440 10*3/uL [facility] RBC (Bld) [#/Vol] 4.60 10*6/uL 4.40 - 5.9 0 10*6/uL [facility] WBC (Bld) [#/Vol] 9.5 10*3/uL 3.6 - 10.7 10*3/uL [facility] Laboratory - Chemistry and C hemistry - challengeon 08-16-2023 Troponin I.cardiac [Mass/Vol] 0.062 ng/mL High [facility] 0.034 ng/mL [facility] Troponin I.cardiac [Mass/Vol] 0.037 ng/mL High [facility] - 0.034 ng/mL [facility] Troponin I.cardiac [Mass/Vol ]on 08-16-2023 Interpretation and review of laboratory results Abnormal [facility] Patients with high levels of Biotin oral intake (ie >5 mg/day) may have falsely decreased Troponin levels. [facility] Interpretation and review of laboratory results Abnormal [facility] Patients with high levels of Biotin oral intake (ie >5 mg/day) may have falsely decreased Troponin levels. [facility] XR Chest Single viewon 08-16 1. Cardiomegaly. 2. No other acute findings. Report Dictated on Electronically Signed By: Justo Milan MD Electronically Signed Date/Time: 08/16/2023 6:42 PM [facility] Patient Name: JUN SNYDER : 1965 Exam Date/Time: 08/16/2023 18:39 Procedure: XR CHEST 1 VIEW Ordering Provider: GRANADOS SHAYA Reason For Exam: CHEST PAIN CHEST PORTABLE CLINICAL INDICATION: CHEST PAIN TECHNIQUE: Portable chest x-ray(s). COMPARISON: September,. FINDINGS: Mild cardiomegaly, stable. Lungs are grossly clear. No significant vascular congestion. No apparent pneumothorax. Bony thorax grossly unremarkable. [facility] Justo Milan MD - 08/16/2023 Patient [...] Electronically Signed Date/Time: 08/16/2023 6:42 PM EST [facility] Radiology Study observation (narrative) [facility] [place] [facility] XR Chest Single viewOrdered By: Justo Milan on 08-16-2023 [facility] Work Phone: POTASSIUM BLDon 12-17-2022 Potassium [Moles/Vol] 7.6 mmol/L Critically high 3.7-5.1 [facility] Comment on above: Order Comment: Dominick richards Type: BLOOD SPECIMEN Ordering Facility: [facility] Address: , , Performed By: #### K 1 #### [facility] CLIA [id number] [address] OF [facility] POTASSIUM BLDon 08-19-2022 Potassium [Moles/Vol] 7.0 mmol/L Critically high 3.7-5.1 [facility] Comment on above: Order Comment: Dominick richards Type: BLOOD SPECIMEN Ordering Facility: [facility] Address: , , Performed By: #### K 1 #### [facility] CLIA [id number] [address] [place] [address] [facility] POTASSIUM BLDon 06-16-2022 Potassium [Moles/Vol] 6.3 mmol/L Critically high 3.7-5.1 [facility] Comment on above: Order Comment: Dominick richards Type: BLOOD SPECIMEN [facility] Address: , , Performed By: #### K 1 #### [facility] CLIA [id number] [address] [place] [address] [place] Hgb Bld-ncon 05-12-2022 Hemoglobin (Bld) [Mass/Vol] 8.4 g/dL Low 13.0-17.0 [facility] Comment on above: Order Comment: Dominick richards Type: BLOOD SPECIMEN [facility] Address: , , Performed By: #### 7 18-7 #### [facility] CLIA [id number] [address] OF [place] XA Special Angiography Proce dureon 09-15-2021 XA Special Angiography Procedure Patient Name: JUN SNYDER Special Procedures ACCESSION EXAM DATE/TIME PROCEDURE ORDERING PROVIDER [id number] 09/15/2021 11:10 EST XA Special Angiography MD [...] and the needle was removed. A 3 Wallisian dilator was advanced over the wire and [...] after procedure termination. Report Dictated on Workstation: [id number] Final Dictating Physician: MD VICENTE CHRISTOPHER Signed Date and Time: 09/15/2021 12:15 pm Signed by: MD VICENTE CHRISTOPHER Transcribed Date and Time: 09/15/2021 12:16 Normal [facility] IR DIALYSIS INJ W/ANGIOPLAST Yon 11-22-2020 IR DIALYSIS INJ W/ANGIOPLASTY Final Report DATE OF EXAM: Nov 22 2020 2:02PM AKA 0944 - IR DIALYSIS INJ W/ANGIOPLASTY / [...] This was initially converted to a 6 Wallisian sheath and later converted to a 7 Wallisian sheath. Reflux fistulogram for done in several [...] levels with a 6 x 40 mm Worth balloon. This gave minimal improvement. We then exchanged the 6 mm balloon for an 8 x 40 mm Worth balloon. This gave more moderate improvement. At that point we changed the 6 Wallisian sheath to a 7 Wallisian sheath and placed a 9 x 40 [...] site of puncture trauma. With the 7 Wallisian sheath removed pressure was held on the [...] dilation of stenotic lesion as noted above. Publications Editor: [facility] Transcribe Date/Time: Nov 22 2020 2:07P Dictated by : VINCENT DE LA ROSA MD This examination was interpreted and the report reviewed and electronically signed by: VINCENT DE LA ROSA MD on Nov 22 2020 2:13PM EST Normal [facility] XA SPECIAL ANGIOGRAPHY [facility] 10-17-2020 Patient Name: GLENN SNYDER Special Procedures ACCESSION EXAM DATE/TIME PROCEDURE ORDERING PROVIDER [id number] 10/17/2020 08:27 EST XA Special Angiography MD DA, CINDY MATHEWS Reason For Exam (XA Special Angiography Procedure) Tunneled HD removal. N18.6 ESRD Report CLINICAL HISTORY: Dialysis catheter no longer needed Procedures: Right tunneled dialysis catheter removal Physician: Dr. eKn MEDICATIONS: None EBL: Minimal. Contrast: None. Specimen [...] KEVIN Transcribed Date and Time: 10/17/2020 1:05 [facility], [facility] Incoming Radiology Results From [facility] - 10/17/2020 1:05 PM EST Patient Name: GLENN SNYDER Special Procedures ACCESSION EXAM DATE/TIME PROCEDURE ORDERING PROVIDER [id number] 10/17/2020 08:27 EST XA Special Angiography MD [...] KEVIN Transcribed Date and Time: 10/17/2020 1:05 [place], [place] XA Special Angiography Proce [facility] 10-17-2020 XA Special Angiography Procedure Patient Name: GLENN SNYDER Special Procedures ACCESSION EXAM DATE/TIME PROCEDURE ORDERING PROVIDER [id number] 10/17/2020 08:27 EST XA Special Angiography MD [...] Transcribed Date and Time: 10/17/2020 1:05 Normal [facility] Basic Metabolic Panelon 08- Anion gap [Moles/Vol] 17 mmol/L Normal 9-18 [facility] Comment on above: Performed By: #### B MP #### [facility] [address] [place], [place] [address] Calcium [Mass/Vol] 9.1 mg/dL Normal 8.5-10.2 [facility] Comment on above: Performed By: #### B MP #### [facility] [address] [place], [place] [address] Chloride [Moles/Vol] 100 mmol/L Normal 97-105 [facility] Comment on above: Performed By: #### B MP #### [facility] [address] [place], [place] [address] CO2 Blood 18 mmol/L Low 22-30 [facility] Comment on above: Performed By: #### B MP #### [facility] [address] [place], [place] [address] Creatinine [Mass/Vol] 13.39 mg/dL High 0.73-1.22 [facility] Comment on above: Performed By: #### B MP #### [facility] [address] [place], [place] [address] Glucose [Mass/Vol] 83 mg/dL Normal 74-99 [facility] Comment on above: Result Comment: The [place] Diabetes Association (ADA) provides guidance for cutoff [...] Standards of Medical Care in Diabetes 2016; [place] [employer]. Diabetes Care. 2016;39(Suppl 1). Performed By: #### B MP #### [facility] [address] [place] [address] Potassium [Moles/Vol] 4.8 mmol/L Normal 3.7-5.1 [facility] Comment on above: Performed By: #### B MP #### [facility] [address] [place] [address] Sodium [Moles/Vol] 135 mmol/L Low 136-144 [facility] Comment on above: Performed By: #### B MP #### [facility] [address] [place] [address] Urea nitrogen [Mass/Vol] 61 mg/dL High 9-24 [facility] Comment on above: Performed By: #### B MP #### [facility] [address] [place] [address] Hemogramon 05-10-2020 Erythrocyte distribution width (RBC) [Ratio] 12.7 % Normal 11.6-14.4 [facility] Comment on above: Performed By: #### C BC1 #### [place] [address] Hematocrit (Bld) [Volume fraction] 28.4 % Low 40.1-51.0 [facility] Comment on above: Performed By: #### C BC1 #### [place] [address] Hemoglobin (Bld) [Mass/Vol] 9.2 g/dL Low 13.7-17.5 [facility] Comment on above: Performed By: #### C BC1 #### [place] [address] MCH (RBC) [Entitic mass] 30.6 pg Normal 25.7-32.2 [facility] Comment on above: Performed By: #### C BC1 #### [place] [address] MCHC (RBC) [Mass/Vol] 32.4 % Normal 32.3-36.5 [facility] Comment on above: Performed By: #### C BC1 #### [place] [address] MCV (RBC) [Entitic vol] 94.4 fL Normal 83.2-95.6 [facility] Comment on above: Performed By: #### C BC1 #### [facility] [address] [place], [place] [address] Platelet mean volume (Bld) [Entitic vol] 10.1 fL Normal 8.7-12.0 [facility] Comment on above: Performed By: #### C BC1 #### [facility] [address] [place], [place] [address] Platelets (Bld) [#/Vol] 278 thou/cmm Normal 141-365 [facility] Comment on above: Performed By: #### C BC1 #### [place] [phone] RBC (Bld) [#/Vol] 3.01 mil/cmm Low 4.63-6.08 [facility] Comment on above: Performed By: #### C BC1 #### [place] [address] RDW SD 43.8 fl Normal 36.1-45.8 [facility] Comment on above: Performed By: #### C BC1 #### [address] [address] WBC (Bld) [#/Vol] 8.58 thou/cmm Normal 4.23-9.07 [facility] Comment on above: Performed By: #### C BC1 #### [place] [address] MDRD GFRon 05-10-2020 GFR/1.73 sq M predicted among non-blacks MDRD (S/P/Bld) [Vol rate/Area] 3.89 mL/min/{1.73_m2} Normal >60mL/min/1.7 3m2 [facility] Comment on above: Result Comment: If t he patient is , multiply the result by 1.210. Performed By: #### G FR #### [place] [phone] Protimeon 05-10-2020 INR Coag (PPP) [Relative time] 0.98 {INR} Normal 0.90-1.30 [facility] Comment on above: Result Comment: Conchita min K Antagonist (VKA) Therapeutic Range: INR 2 to 3 (Target INR of 2.5) Note: For patients treated with VKA drugs, such as warfarin, the [place] [employer] Chest Physicians 2012 Guideline recommends [...] to 3.5 target INR of 3). Angie NAILS, et al. Chest 2012; 141:7S-47S Randall RA et al. [facility] 2017; 70: 252-289 Performed By: #### P T #### [place] [address] PT Coag (PPP) [Time] 10.6 s Normal 9.7-13.0 [facility] Comment on above: Performed By: #### P T #### [place] [address] Rapid, COVID 19on 03-20-2020 Rapid, COVID 19 Negative Normal Negative [facility] Comment on above: Result Comment: This test has been authorized by the FDA under an Emergency Use Authorization (EUA). Performed By: #### R COVD #### [place] [address] Basic Metabolic Panelon 02-25 Anion gap [Moles/Vol] 14 mmol/L Normal 9-18 [facility] Comment on above: Performed By: #### B MP #### [place] [phone] Calcium [Mass/Vol] 10.0 mg/dL Normal 8.5-10.2 [facility] Comment on above: Performed By: #### B MP #### [facility] [address] [place], [place] [address] Chloride [Moles/Vol] 95 mmol/L Low 97-105 [facility] Comment on above: Performed By: #### B MP #### [facility] [address] [place], [place] [address] CO2 Blood 26 mmol/L Normal 22-30 [facility] Comment on above: Performed By: #### B MP #### [facility] [address] [place], [place] [address] Creatinine [Mass/Vol] 9.29 mg/dL High 0.73-1.22 [facility] Comment on above: Performed By: #### B MP #### [facility] [address] [place], [place] [address] Glucose [Mass/Vol] 84 mg/dL Normal 74-99 [facility] Comment on above: Result Comment: The [place] Diabetes Association (ADA) provides guidance for cutoff [...] Standards of Medical Care in Diabetes 2016; [place] [employer]. Diabetes Care. 2016;39(Suppl 1). Performed By: #### B MP #### [facility] [address] [place], [place] [address] Potassium [Moles/Vol] 3.7 mmol/L Normal 3.7-5.1 [facility] Comment on above: Performed By: #### B MP #### [facility] [address] [place], [place] [address] Sodium [Moles/Vol] 135 mmol/L Low 136-144 [facility] Comment on above: Performed By: #### B MP #### [facility] [address] [place], [place] [address] Urea nitrogen [Mass/Vol] 32 mg/dL High 9-24 [facility] Comment on above: Performed By: #### B MP #### [facility] [address] [place], [place] [address] Hematologyon 03-13-2020 INR Coag (PPP) [Relative time] 0.96 {INR} 0.90 - 1.30 [facility] PT Coag (PPP) [Time] 10.4 s 9.7 - 1 3.0 sec [facility] Hematocrit (Bld) [Volume fraction] 30.6 % Low 40.1 - 51.0 % [facility] Hemoglobin (Bld) [Mass/Vol] 10.8 g/dL Low 13.7 - 17.5 g/dL [facility] MCH (RBC) [Entitic mass] 31.0 pg 25. 7 - 32.2 pg [facility] MCV (RBC) [Entitic vol] 87.9 fL 83.2 - 95.6 fl [facility] Platelets (Bld) [#/Vol] 269 thou/cmm 141 - 365 thou/cmm [facility] RBC (Bld) [#/Vol] 3.48 mil/cmm Low 4.63 - 6.0 8 mil/cmm [facility] WBC (Bld) [#/Vol] 10.79 thou/cmm High 4.23 - 9 .07 thou/cmm [facility] Hemogramon 03-13-2020 Erythrocyte distribution width (RBC) [Ratio] 13.2 % Normal 11.6-14.4 [facility] Comment on above: Performed By: #### C BC1 #### [facility] [address] [place], [place] [address] Hematocrit (Bld) [Volume fraction] 30.6 % Low 40.1-51.0 [facility] Comment on above: Performed By: #### C BC1 #### [facility] [address] [place], [place] [address] Hemoglobin (Bld) [Mass/Vol] 10.8 g/dL Low 13.7-17.5 [facility] Comment on above: Performed By: #### C BC1 #### [facility] [address] [place], [place] [address] MCH (RBC) [Entitic mass] 31.0 pg Normal 25.7-32.2 [facility] Comment on above: Performed By: #### C BC1 #### [facility] [address] [place], [place] [address] MCHC (RBC) [Mass/Vol] 35.3 % Normal 32.3-36.5 [facility] Comment on above: Performed By: #### C BC1 #### [facility] [address] [place] [address] MCV (RBC) [Entitic vol] 87.9 fL Normal 83.2-95.6 [facility] Comment on above: Performed By: #### C BC1 #### [facility] [address] [place] [address] Platelet mean volume (Bld) [Entitic vol] 10.1 fL Normal 8.7-12.0 [facility] Comment on above: Performed By: #### C BC1 #### [facility] [address] [place] [address] Platelets (Bld) [#/Vol] 269 thou/cmm Normal 141-365 [facility] Comment on above: Performed By: #### C BC1 #### [facility] [address] [place] [address] RBC (Bld) [#/Vol] 3.48 mil/cmm Low 4.63-6.08 [facility] Comment on above: Performed By: #### C BC1 #### [facility] [address] [place] [address] RDW SD 42.3 fl Normal 36.1-45.8 [facility] Comment on above: Performed By: #### C BC1 #### [facility] [address] [place] [phone] WBC (Bld) [#/Vol] 10.79 thou/cmm High 4.23-9.07 [facility] Comment on above: Performed By: #### C BC1 #### [facility] [address] [place] [phone] MDRD GFRon 03-13-2020 GFR/1.73 sq M predicted among non-blacks MDRD (S/P/Bld) [Vol rate/Area] 5.94 mL/min/{1.73_m2} Normal >60mL/min/1.7 3m2 [facility] Comment on above: Result Comment: If t he patient is , multiply the result by 1.210. Performed By: #### G FR #### [facility] [address] [place] [address] Metabolic Panelon 03-13-2020 Anion gap [Moles/Vol] 14 mmol/L 9 - 18 mmol/L [facility] Calcium [Mass/Vol] 10.0 mg/dL 8.5 - 10. 2 mg/dL [facility] Chloride [Moles/Vol] 95 mmol/L Low 97 - 10 5 mmol/L [facility] CO2 [Moles/Vol] 26 mmol/L 22 - 30 mmol/L [facility] Creatinine [Mass/Vol] 9.29 mg/dL High 0.73 - 1.22 mg/dL [facility] Glucose [Mass/Vol] 84 mg/dL 74 - 99 mg/dL [facility] Potassium [Moles/Vol] 3.7 mmol/L 3.7 - 5.1 mmol/L [facility] Sodium [Moles/Vol] 135 mmol/L Low 136 - 144 mmol/L [facility] Urea nitrogen [Mass/Vol] 32 mg/dL High 9 - 24 mg/d L [facility] Otheron 03-13-2020 GFR/1.73 sq M.predicted MDRD (S/P/Bld) [Vol rate/Area] 5.94 mL/min/{1.73_m2} >60mL/min/1.7 3m2 [facility] Erythrocyte distribution width (RBC) [Entitic vol] 42.3 fL 36.1 - 45.8 fl [facility] Erythrocyte distribution width (RBC) [Ratio] 13.2 % 11.6 - 14.4 % [facility] MCHC (RBC) [Mass/Vol] 35.3 % 32.3 - 36.5 % [facility] Platelet mean volume (Bld) [Entitic vol] 10.1 fL 8.7 - 12.0 fl [facility] Protimeon 03-13-2020 INR Coag (PPP) [Relative time] 0.96 {INR} Normal 0.90-1.30 [facility] Comment on above: Result Comment: Conchita min K Antagonist (VKA) Therapeutic Range: INR 2 to 3 (Target INR of 2.5) Note: For patients treated with VKA drugs, such as warfarin, the [place] [employer] 2012 Guideline recommends [...] to 3.5 target INR of 3). Angie NAILS, et al. Chest 2012; 141:7S-47S Randall RA et al. JAC 2017; 70: 252-289 Performed By: #### P T #### [facility] [address] [place] [address] PT Coag (PPP) [Time] 10.4 s Normal 9.7-13.0 [facility] Comment on above: Performed By: #### P T #### [place] [address] US VEIN MAPPING UPPER BILon 02-13-2020 US VEIN MAPPING UPPER HO * * *Final Report* * * DATE OF EXAM: Feb 13 2020 2:22PM [facility] 1085 - US VEIN MAPPING UPPER HO [...] unobstructed. There is no deep venous thrombosis. Publications Editor: [facility] Transcribe Date/Time: Feb 13 2020 4:27P Dictated by : ANALISA GRANADOS MD This examination was interpreted and the report reviewed and electronically signed by: ANALISA GRANADOS MD on Feb 13 2020 4:30PM EST Normal [facility] Basic Metabolic PanelOrdered By: Darell Sanches on 10-27-2019 Anion gap [Moles/Vol] 18 mmol/L [facility] Work Phone: Calcium [Mass/Vol] 9.2 mg/dL 8.4 - 10. 4 mg/dL [facility] Work Phone: Chloride [Moles/Vol] 93 mmol/L Low 98 - 10 7 mmol/L [facility] Work Phone: CO2 [Moles/Vol] 24 mmol/L 22 - 30 mmol/L [facility] Work Phone: [phone] Creatinine [Mass/Vol] 9.99 mg/dL High 0.52 - 1.25 mg/dL [facility] Work Phone: [phone] IF NonAfrican [place] Citizen 5.5 mL/min >60 [facility] Work Phone: [phone] Comment on above: Source- MDRD equatio n with creatinine calibration to IDMS(NKDEP) eGFR not recommended for drug dose adjustment GFR/1.73 sq M.predicted among blacks MDRD (S/P/Bld) [Vol rate/Area] 6.6 mL/min/{1.73_m2} >60 [facility] Work Phone: [phone] Glucose [Mass/Vol] 103 mg/dL High 70 - 100 mg/dL [facility] Work Phone: [phone] Potassium [Moles/Vol] 4.5 mmol/L 3.5 - 5.1 mmol/L [facility] Work Phone: [phone] Sodium [Moles/Vol] 135 mmol/L 135 - 145 mmol/L [facility] Work Phone: [phone] Urea nitrogen [Mass/Vol] 49 mg/dL High 7 - 20 mg/d L [facility] Work Phone: [phone] Auto DifferentialOrdered By: Darell Sanches on 10-27-2019 Absolute Baso # 0.1 10*3/uL 0 - 0.2 10*3/uL [facility] Work Phone: [phone] Absolute Neut # 6.6 10*3/uL 1.8 - 7 10*3/uL [facility] Work Phone: [phone] Basophils/100 WBC (Bld) 0.7 % 0 - 2 % S [facility] Work Phone: [phone] Eosinophils (Bld) [#/Vol] 0.5 10*3/uL 0 - 0.5 10*3/uL [facility] Work Phone: Eosinophils/100 WBC (Bld) 4.9 % 1 - 6 % [facility] Work Phone: [phone] Erythrocyte distribution width (RBC) [Ratio] 14.0 % 11.5 - 14.5 % [facility] Work Phone: [phone] Granulocytes/100 WBC (Bld) 62.2 % 40 - 80 % [facility] Work Phone: 1) Hematocrit (Bld) [Volume fraction] 28.3 % Low 40 - 52 % [facility] Work Phone: [phone] Hemoglobin (Bld) [Mass/Vol] 9.5 g/dL Low 13 - 18 g/dL [facility] Work Phone: [phone] Lymphocytes (Bld) [#/Vol] 2.0 10*3/uL 1 - 4.3 10*3/uL [facility] Work Phone: [phone] Lymphocytes/100 WBC (Bld) 18.8 % Low 20 - 40 % [facility] Work Phone: 1) MCH (RBC) [Entitic mass] 29.1 pg 26 - 34 pg [facility] Work Phone: 1) MCHC 33.6 % 32 - 36 % [facility] Work Phone: 1) MCV (RBC) [Entitic vol] 86.7 fL 80 - 98 fL [facility] Work Phone: 1) Monocytes (Bld) [#/Vol] 1.4 10*3/uL High 0 - 0.8 10*3/uL [facility] Work Phone: [phone] Monocytes/100 WBC (Bld) 13.4 % High 2 - 10 % [facility] Work Phone: 1) Platelet mean volume (Bld) [Entitic vol] 8.2 fL 7.4 - 10.4 fL [facility] Work Phone: [phone] Platelets (Bld) [#/Vol] 259 10*3/uL 140 - 440 10*3/uL [facility] Work Phone: [phone] RBC (Bld) [#/Vol] 3.27 10*6/uL Low 4.4 - 5.9 10*6/uL [facility] Work Phone: [phone] 22 WBC (Bld) [#/Vol] 10.6 10*3/uL 3.6 - 10.7 10*3/uL [facility] Work Phone: [phone] MAGNESIUMOrdered By: Darell Sanches on 10-27-2019 Magnesium [Mass/Vol] 2.6 mg/dL High 1.6 - 2 .3 mg/dL [facility] Work Phone: [phone] Panel InformationOrdered By: Darell Sanches on 10-27-2019 Interpretation and review of laboratory results Abnormal [facility] Work Phone: [phone] Test Performed by [facility], [address] [place], [place] [address] [facility] Work Phone: [phone] PhosphorusOrdered By: Darell Sanches on 10-27-2019 Phosphate [Mass/Vol] 9.9 mg/dL High 2.5 - 4 .5 mg/dL [facility] Work Phone: [phone] Basic Metabolic PanelOrdered By: Darell Sanches on 10-26-2019 Anion gap [Moles/Vol] 14 mmol/L [facility] Work Phone: [phone] Calcium [Mass/Vol] 9.0 mg/dL 8.4 - 10. 4 mg/dL [facility] Work Phone: 1 Chloride [Moles/Vol] 94 mmol/L Low 98 - 10 7 mmol/L [facility] Work Phone: CO2 [Moles/Vol] 29 mmol/L 22 - 30 mmol/L [facility] Work Phone: [phone] Creatinine [Mass/Vol] 7.06 mg/dL High 0.52 - 1.25 mg/dL [facility] Work Phone: [phone] IF NonAfrican [place] Citizen 8.2 mL/min >60 [facility] Work Phone: Comment on above: Source- MDRD equatio n with creatinine calibration to IDMS(NKDEP) eGFR not recommended for drug dose adjustment GFR/1.73 sq M.predicted among blacks MDRD (S/P/Bld) [Vol rate/Area] 9.9 mL/min/{1.73_m2} >60 [facility] Work Phone: [phone] Glucose [Mass/Vol] 95 mg/dL 70 - 100 mg/dL [facility] Work Phone: [phone] Potassium [Moles/Vol] 4.2 mmol/L 3.5 - 5.1 mmol/L [facility] Work Phone: [phone] Sodium [Moles/Vol] 136 mmol/L 135 - 145 mmol/L [facility] Work Phone: 1 Urea nitrogen [Mass/Vol] 27 mg/dL High 7 - 20 mg/d L [facility] Work Phone: [phone] CBC Auto DifferentialOrdered By: Darell Sanches on 10-26-2019 Absolute Baso # 0.1 10*3/uL 0 - 0.2 10*3/uL [facility] Work Phone: [phone] Absolute Neut # 7.1 10*3/uL High 1.8 - 7 10*3/uL [facility] Work Phone: 1 Basophils/100 WBC (Bld) 0.8 % 0 - 2 % S [facility] Work Phone: 1 Eosinophils (Bld) [#/Vol] 0.5 10*3/uL 0 - 0.5 10*3/uL [facility] Work Phone: 1 Eosinophils/100 WBC (Bld) 4.7 % 1 - 6 % [facility] Work Phone: 1 Erythrocyte distribution width (RBC) [Ratio] 13.9 % 11.5 - 14.5 % [facility] Work Phone: 1 Granulocytes/100 WBC (Bld) 63.9 % 40 - 80 % [facility] Work Phone: Hematocrit (Bld) [Volume fraction] 29.2 % Low 40 - 52 % [facility] Work Phone: 1 Hemoglobin (Bld) [Mass/Vol] 9.9 g/dL Low 13 - 18 g/dL [facility] Work Phone: [phone] Interpretation and review of laboratory results Abnormal [facility] Work Phone: Lymphocytes (Bld) [#/Vol] 2.0 10*3/uL 1 - 4.3 10*3/uL [facility] Work Phone: [phone] Lymphocytes/100 WBC (Bld) 17.8 % Low 20 - 40 % [facility] Work Phone: MCH (RBC) [Entitic mass] 29.5 pg 26 - 34 pg [employer] Work Phone: 1 MCHC 33.9 % 32 - 36 % [employer] Work Phone: 1 MCV (RBC) [Entitic vol] 87.0 fL 80 - 98 fL S [facility] Work Phone: 1 Monocytes (Bld) [#/Vol] 1.4 10*3/uL High 0 - 0.8 10*3/uL [employer] Work Phone: Monocytes/100 WBC (Bld) 12.8 % High 2 - 10 % [facility] Work Phone: Platelet mean volume (Bld) [Entitic vol] 8.0 fL 7.4 - 10.4 fL [employer] Work Phone: Platelets (Bld) [#/Vol] 262 10*3/uL 140 - 440 10*3/uL [employer] Work Phone: RBC (Bld) [#/Vol] 3.36 10*6/uL Low 4.4 - 5.9 10*6/uL [employer] Work Phone: WBC (Bld) [#/Vol] 11.0 10*3/uL High 3.6 - 10.7 10*3/uL [employer] Work Phone: Test Performed by [facility], [address] [place] [address] [employer] Work Phone: Culture Blood #1Ordered By: Brett Encarnacion on 10-26-2019 Blood Culture, Routine [employer] testing is not routinely performed on Gram positive bacilli. If a Listeria infection is highly suspected, contact the Microbiology laboratory [phone]). Abnormal [employer] Work Phone: 1 Blood Culture, Routine Propionibacterium acnes Abnormal [employer] Work Phone: Blood Culture, Routine Isolated: Contamination likely unless additional blood culture sets are found to be positive with the same organism. [employer] Work Phone: 1 Interpretation and review of laboratory results Abnormal [employer] Work Phone: Test Performed by [facility], [address] [place] [address] Specimen Source Comment:Blood [employer] Work Phone: MAGNESIUMOrdered By: Darell Sanches on 10-26-2019 Magnesium [Mass/Vol] 2.2 mg/dL 1.6 - 2 .3 mg/dL [facility] Work Phone: [phone] Panel InformationOrdered By: Darell Sanches on 10-26-2019 Interpretation and review of laboratory results Abnormal [employer] Work Phone: [phone] Test Performed by [facility], [address] [place], [place] [address] [employer] Work Phone: [phone] PhosphorusOrdered By: Darell Sanches on 10-26-2019 Phosphate [Mass/Vol] 7.1 mg/dL High 2.5 - 4 .5 mg/dL [employer] Work Phone: [phone] US BIOPSY RENAL RIGHT PERCOr dered By: Cindy Patel on 10-26-2019 Patient Name: GLENN SNYDER ---Ultrasound--- Exam Date/Time 10/26/2019 10:57:27 EST Exam US Biopsy Renal Right Ordering Physician MD DA, CINDY MATHEWS Accession Number [id number] CPT4 Codes 18295 (), 49499 () Reason For Exam renal failure Report ULTRASOUND GUIDED RIGHT LOWER POLE KIDNEY BIOPSY Reasons for examination: Acute renal failure. After review of prior studies, patient interview and examination, the risks, benefits, and alternatives of the biopsy procedure were discussed, informed consent was obtained. 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 After review of prior studies, patient interview and examination, the risks, benefits, and alternatives of the biopsy procedure were discussed, informed consent was obtained. 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 US scans of the right kidney [...] Ordering Physician MD KEILA, JEANA Accession Number [id number] Reason For Exam non tunneled to tunneled cath Report FLUOROSCOPIC AND ULTRASOUND-GUIDED TUNNELED DIALYSIS CATHETER PLACEMENT REMOVAL OF RIGHT INTERNAL JUGULAR TEMPORARY HEMODIALYSIS CATHETER CLINICAL HISTORY: Need for residential central venous access Fluoroscopy time: Acute renal [...] Time: 10/26/2019 3:28 [facility] Work Phone: Mike, [employer] Incoming Radiology Results From [facility] - 10/26/2019 3:29 PM EST Patient Name: GLENN SNYDER ---Special Procedures--- Exam Date/Time 10/26/2019 15:01:32 EST Exam XA Special Angiography Procedure Ordering Physician MD KEILA, AZIZ Accession Number [id number] Reason For Exam non tunneled to tunneled cath Report FLUOROSCOPIC AND ULTRASOUND-GUIDED TUNNELED DIALYSIS CATHETER PLACEMENT REMOVAL OF RIGHT INTERNAL JUGULAR TEMPORARY HEMODIALYSIS CATHETER CLINICAL HISTORY: Need for residential central venous access Fluoroscopy time: Acute renal [...] and Time: 10/26/2019 3:28 [facility] Work Phone: [phone] Basic Metabolic PanelOrdered By: Darell Sanches on 10-25-2019 Anion gap [Moles/Vol] 15 mmol/L [facility] Work Phone: [phone] Calcium [Mass/Vol] 8.7 mg/dL 8.4 - 10. 4 mg/dL [facility] Work Phone: [phone] Chloride [Moles/Vol] 95 mmol/L Low 98 - 10 7 mmol/L [facility] Work Phone: [phone] CO2 [Moles/Vol] 26 mmol/L 22 - 30 mmol/L [facility] Work Phone: [phone] Creatinine [Mass/Vol] 9.71 mg/dL High 0.52 - 1.25 mg/dL [facility] Work Phone: [phone] EGFR IF NonAfrican [place] Citizen 5.7 mL/min >60 [facility] Work Phone: [phone] Comment on above: Source- MDRD equatio n with creatinine calibration to IDMS(NKDEP) eGFR not recommended for drug dose adjustment GFR/1.73 sq M.predicted among blacks MDRD (S/P/Bld) [Vol rate/Area] 6.9 mL/min/{1.73_m2} >60 [facility] Work Phone: [phone] Glucose [Mass/Vol] 96 mg/dL 70 - 100 mg/dL [facility] Work Phone: [phone] Potassium [Moles/Vol] 4.3 mmol/L 3.5 - 5.1 mmol/L [facility] Work Phone: [phone] Sodium [Moles/Vol] 135 mmol/L 135 - 145 mmol/L [facility] Work Phone: [phone] Urea nitrogen [Mass/Vol] 39 mg/dL High 7 - 20 mg/d L [facility] Work Phone: [phone] CBC Auto DifferentialOrdered By: Darell Sanches on 10-25-2019 Absolute Baso # 0.1 10*3/uL 0 - 0.2 10*3/uL [facility] Work Phone: [phone] Absolute Neut # 6.7 10*3/uL 1.8 - 7 10*3/uL [facility] Work Phone: [phone] Basophils/100 WBC (Bld) 0.9 % 0 - 2 % S [facility] Work Phone: 22 Eosinophils (Bld) [#/Vol] 0.5 10*3/uL 0 - 0.5 10*3/uL [facility] Work Phone: 1 22 Eosinophils/100 WBC (Bld) 4.5 % 1 - 6 % [facility] Work Phone: 1 22 Erythrocyte distribution width (RBC) [Ratio] 13.8 % 11.5 - 14.5 % [facility] Work Phone: 1 22 Granulocytes/100 WBC (Bld) 60.1 % 40 - 80 % [facility] Work Phone: Hematocrit (Bld) [Volume fraction] 28.3 % Low 40 - 52 % [facility] Work Phone: Hemoglobin (Bld) [Mass/Vol] 9.7 g/dL Low 13 - 18 g/dL [facility] Work Phone: [phone] Interpretation and review of laboratory results Abnormal [employer] Work Phone: 1 Lymphocytes (Bld) [#/Vol] 2.6 10*3/uL 1 - 4.3 10*3/uL [facility] Work Phone: 1 22 Lymphocytes/100 WBC (Bld) 22.9 % 20 - 40 % [facility] Work Phone: MCH (RBC) [Entitic mass] 30.0 pg 26 - 34 pg [facility] Work Phone: 1 22 MCHC 34.3 % 32 - 36 % [facility] Work Phone: 1 MCV (RBC) [Entitic vol] 87.3 fL 80 - 98 fL [facility] Work Phone: Monocytes (Bld) [#/Vol] 1.3 10*3/uL High 0 - 0.8 10*3/uL [facility] Work Phone: 1 22 Monocytes/100 WBC (Bld) 11.6 % High 2 - 10 % [facility] Work Phone: 22 Platelet mean volume (Bld) [Entitic vol] 8.1 fL 7.4 - 10.4 fL [facility] Work Phone: 1 Platelets (Bld) [#/Vol] 252 10*3/uL 140 - 440 10*3/uL [facility] Work Phone: 1 RBC (Bld) [#/Vol] 3.24 10*6/uL Low 4.4 - 5.9 10*6/uL [facility] Work Phone: WBC (Bld) [#/Vol] 11.2 10*3/uL High 3.6 - 10.7 10*3/uL [facility] Work Phone: 1 Test Performed by [employer] [facility], [address] [place] [id number] [facility] Work Phone: MAGNESIUMOrdered By: Darell Sanches on 10-25-2019 Magnesium [Mass/Vol] 2.2 mg/dL 1.6 - 2 .3 mg/dL [facility] Work Phone: 1 No Panel InformationOrdered By: Darell Sanches on 10-25-2019 Interpretation and review of laboratory results Abnormal [facility] Work Phone: Test Performed by [employer] [facility], [address] [place] [id number] [place] [address] Work Phone: PhosphorusOrdered By: Darell Sanches on 10-25-2019 Phosphate [Mass/Vol] 9.3 mg/dL High 2.5 - 4 .5 mg/dL [facility] Work Phone: APTTOrdered By: Cindy Patel on 10-24-2019 aPTT Coag (Bld) [Time] 28.5 s 20 - 30.5 s S [facility] Work Phone: [phone] Comment on above: NOTE: The therapeuti c time for Heparin anticoagulation, based on Xa activity inhibition, is an APTT of 46-80 seconds. Basic Metabolic PanelOrdered By: Darell Sanches on 10-24-2019 Anion gap [Moles/Vol] 10 mmol/L [facility] Work Phone: [phone] Calcium [Mass/Vol] 8.6 mg/dL 8.4 - 10. 4 mg/dL [facility] Work Phone: [phone] Chloride [Moles/Vol] 94 mmol/L Low 98 - 10 7 mmol/L [facility] Work Phone: [phone] CO2 [Moles/Vol] 31 mmol/L High 22 - 30 mmol/L [facility] Work Phone: [phone] Creatinine [Mass/Vol] 7.11 mg/dL High 0.52 - 1.25 mg/dL [facility] Work Phone: [phone] IF NonAfrican [place] Citizen 8.1 mL/min >60 [facility] Work Phone: [phone] Comment on above: Source- MDRD equatio n with creatinine calibration to IDMS(NKDEP) eGFR not recommended for drug dose adjustment GFR/1.73 sq M.predicted among blacks MDRD (S/P/Bld) [Vol rate/Area] 9.8 mL/min/{1.73_m2} >60 [facility] Work Phone: [phone] Glucose [Mass/Vol] 93 mg/dL 70 - 100 mg/dL [facility] Work Phone: [phone] Potassium [Moles/Vol] 4.1 mmol/L 3.5 - 5.1 mmol/L [facility] Work Phone: [phone] Sodium [Moles/Vol] 135 mmol/L 135 - 145 mmol/L [facility] Work Phone: [phone] Urea nitrogen [Mass/Vol] 28 mg/dL High 7 - 20 mg/d L [facility] Work Phone: [phone] CBC Auto DifferentialOrdered By: Darell Sanches on 10-24-2019 Absolute Baso # 0.1 10*3/uL 0 - 0.2 10*3/uL [facility] Work Phone: [phone] Absolute Neut # 6.2 10*3/uL 1.8 - 7 10*3/uL [facility] Work Phone: [phone] Basophils/100 WBC (Bld) 0.7 % 0 - 2 % S [facility] Work Phone: [phone] Eosinophils (Bld) [#/Vol] 0.4 10*3/uL 0 - 0.5 10*3/uL [facility] Work Phone: [phone] Eosinophils/100 WBC (Bld) 3.7 % 1 - 6 % [facility] Work Phone: [phone] 22 Erythrocyte distribution width (RBC) [Ratio] 14.0 % 11.5 - 14.5 % [employer] Work Phone: 1 22 Granulocytes/100 WBC (Bld) 63.8 % 40 - 80 % [facility] Work Phone: Hematocrit (Bld) [Volume fraction] 27.0 % Low 40 - 52 % [employer] Work Phone: 1 Hemoglobin (Bld) [Mass/Vol] 9.2 g/dL Low 13 - 18 g/dL [facility] [employer] Work Phone: Interpretation and review of laboratory results Abnormal [employer] Work Phone: Lymphocytes (Bld) [#/Vol] 1.8 10*3/uL 1 - 4.3 10*3/uL [employer] Work Phone: 22 Lymphocytes/100 WBC (Bld) 18.8 % Low 20 - 40 % [employer] Work Phone: 1 MCH (RBC) [Entitic mass] 29.6 pg 26 - 34 pg [employer] Work Phone: 22 MCHC 34.1 % 32 - 36 % [employer] Work Phone: MCV (RBC) [Entitic vol] 86.9 fL 80 - 98 fL [facility] Work Phone: 22 Monocytes (Bld) [#/Vol] 1.3 10*3/uL High 0 - 0.8 10*3/uL [employer] Work Phone: [phone] 22 Monocytes/100 WBC (Bld) 13.0 % High 2 - 10 % [facility] Work Phone: Platelet mean volume (Bld) [Entitic vol] 8.4 fL 7.4 - 10.4 fL [employer] Work Phone: 22 Platelets (Bld) [#/Vol] 245 10*3/uL 140 - 440 10*3/uL [employer] Work Phone: 22 RBC (Bld) [#/Vol] 3.10 10*6/uL Low 4.4 - 5.9 10*6/uL [employer] Work Phone: WBC (Bld) [#/Vol] 9.7 10*3/uL 3.6 - 10.7 10*3/uL [employer] Work Phone: 1 Culture Blood #1Ordered By: Brett Encarnacion on 10-24-2019 Blood Culture, Routine No growth at 5 days. [facility] [employer] Work Phone: Test Performed by [facility], [address] [place] [id number] Specimen Source Comment:Blood [employer] Work Phone: Glomerular Basement Membrane (GBM) Antibody IgGOrdered By: Randolph Liz on 10-24-2019 GBM Ab, IgG (IFA) Negative Negative NA [employer] Work Phone: Comment on above: INTERPRETIVE INFORMA [...] biopsy. Test developed and characteristics determined by [employer] [facility]. See Compliance Statement D: [employer]/ Performed by [facility], [address] [place] [id number] [email or web address], Malvin Slade MD, Lab. Director MAGNESIUMOrdered By: Darell Sanches on 10-24-2019 Magnesium [Mass/Vol] 2.1 mg/dL 1.6 - 2 .3 mg/dL [facility] [employer] Work Phone: No Panel InformationOrdered By: Darell Sanches on 10-24-2019 Interpretation and review of laboratory results Abnormal [facility] Work Phone: Test Performed by [facility], [address] [place], [place] [address] [employer] Work Phone: Test Performed by [facility], [address] [place], [place] [address] [facility] Work Phone: [phone] PhosphorusOrdered By: Darell Sanches on 10-24-2019 Phosphate [Mass/Vol] 5.8 mg/dL High 2.5 - 4 .5 mg/dL [facility] Work Phone: [phone] Protime-INROrdered By: Darren Patel on 10-24-2019 INR Coag (PPP) [Relative time] 1.1 {INR} [facility] Work Phone: [phone] Comment on above: Recommended Anticoag ulant Therapy: [...] - 12 s [facility] Work Phone: [phone] Comment on above: . Basic Metabolic PanelOrdered By: Darell Sanches on 10-23-2019 Anion gap [Moles/Vol] 17 mmol/L [facility] Work Phone: [phone] Calcium [Mass/Vol] 8.6 mg/dL 8.4 - 10. 4 mg/dL [facility] Work Phone: Chloride [Moles/Vol] 94 mmol/L Low 98 - 10 7 mmol/L [facility] Work Phone: CO2 [Moles/Vol] 24 mmol/L 22 - 30 mmol/L [facility] Work Phone: [phone] Creatinine [Mass/Vol] 11.03 mg/dL High 0.52 - 1.25 mg/dL [facility] Work Phone: [phone] EGFR IF NonAfrican [place] Citizen 4.9 mL/min >60 [facility] Work Phone: [phone] Comment on above: Source- MDRD equatio n with creatinine calibration to IDMS(NKDEP) eGFR not recommended for drug dose adjustment GFR/1.73 sq M.predicted among blacks MDRD (S/P/Bld) [Vol rate/Area] 5.9 mL/min/{1.73_m2} >60 [facility] Work Phone: [phone] Glucose [Mass/Vol] 97 mg/dL 70 - 100 mg/dL [facility] Work Phone: [phone] Potassium [Moles/Vol] 3.9 mmol/L 3.5 - 5.1 mmol/L [facility] Work Phone: [phone] Sodium [Moles/Vol] 135 mmol/L 135 - 145 mmol/L [facility] Work Phone: [phone] Urea nitrogen [Mass/Vol] 61 mg/dL High 7 - 20 mg/d L [facility] Work Phone: [phone] CBC Auto DifferentialOrdered By: Darell Sanches on 10-23-2019 Absolute Baso # 0.1 10*3/uL 0 - 0.2 10*3/uL [facility] Work Phone: [phone] Absolute Neut # 7.1 10*3/uL High 1.8 - 7 10*3/uL [facility] Work Phone: [phone] Basophils/100 WBC (Bld) 1.0 % 0 - 2 % S [facility] Work Phone: [phone] Eosinophils (Bld) [#/Vol] 0.5 10*3/uL 0 - 0.5 10*3/uL [facility] Work Phone: [phone] Eosinophils/100 WBC (Bld) 4.7 % 1 - 6 % [facility] Work Phone: [phone] Erythrocyte distribution width (RBC) [Ratio] 13.8 % 11.5 - 14.5 % [facility] Work Phone: [phone] Granulocytes/100 WBC (Bld) 65.3 % 40 - 80 % [facility] Work Phone: [phone] Hematocrit (Bld) [Volume fraction] 27.6 % Low 40 - 52 % [facility] Work Phone: [phone] Hemoglobin (Bld) [Mass/Vol] 9.5 g/dL Low 13 - 18 g/dL [facility] Work Phone: [phone] Interpretation and review of laboratory results Abnormal [facility] Work Phone: [phone] Lymphocytes (Bld) [#/Vol] 1.9 10*3/uL 1 - 4.3 10*3/uL [facility] Work Phone: 1 Lymphocytes/100 WBC (Bld) 17.3 % Low 20 - 40 % [facility] Work Phone: 1 MCH (RBC) [Entitic mass] 29.7 pg 26 - 34 pg [facility] Work Phone: 1 MCHC 34.3 % 32 - 36 % [facility] Work Phone: 1 MCV (RBC) [Entitic vol] 86.6 fL 80 - 98 fL [facility] Work Phone: 1 Monocytes (Bld) [#/Vol] 1.3 10*3/uL High 0 - 0.8 10*3/uL [facility] Work Phone: 1 Monocytes/100 WBC (Bld) 11.7 % High 2 - 10 % [facility] [employer] Work Phone: Platelet mean volume (Bld) [Entitic vol] 7.7 fL 7.4 - 10.4 fL [employer] Work Phone: 1 Platelets (Bld) [#/Vol] 248 10*3/uL 140 - 440 10*3/uL [facility] Work Phone: 1 RBC (Bld) [#/Vol] 3.18 10*6/uL Low 4.4 - 5.9 10*6/uL [facility] Work Phone: WBC (Bld) [#/Vol] 10.8 10*3/uL High 3.6 - 10.7 10*3/uL [facility] Work Phone: 1 Test Performed by [employer] [facility], [address] [place] [address] [employer] Work Phone: MAGNESIUMOrdered By: Darell Sanches on 10-23-2019 Magnesium [Mass/Vol] 2.1 mg/dL 1.6 - 2 .3 mg/dL [employer] Work Phone: 1 No Panel InformationOrdered By: Darell Sanches on 10-23-2019 Interpretation and review of laboratory results Abnormal [facility] Work Phone: Test Performed by [employer] [facility], [address] [place], [place], [place] [address] [facility] Work Phone: PhosphorusOrdered By: Darell Sanches on 10-23-2019 Phosphate [Mass/Vol] 9.5 mg/dL High 2.5 - 4 .5 mg/dL [facility] Work Phone: 1 Basic Metabolic PanelOrdered By: Delon Jessica on 10-22-2019 Anion gap [Moles/Vol] 14 mmol/L [facility] Work Phone: Calcium [Mass/Vol] 8.9 mg/dL 8.4 - 10. 4 mg/dL [facility] Work Phone: Chloride [Moles/Vol] 95 mmol/L Low 98 - 10 7 mmol/L [facility] Work Phone: CO2 [Moles/Vol] 28 mmol/L 22 - 30 mmol/L [facility] Work Phone: Creatinine [Mass/Vol] 8.75 mg/dL High 0.52 - 1.25 mg/dL [facility] Work Phone: EGFR IF NonAfrican [place] Citizen 6.4 mL/min >60 [facility] Work Phone: Comment on above: Source- MDRD equatio n with creatinine calibration to IDMS(NKDEP) eGFR not recommended for drug dose adjustment GFR/1.73 sq M.predicted among blacks MDRD (S/P/Bld) [Vol rate/Area] 7.7 mL/min/{1.73_m2} >60 [facility] Work Phone: Glucose [Mass/Vol] 94 mg/dL 70 - 100 mg/dL [facility] Work Phone: Potassium [Moles/Vol] 4.3 mmol/L 3.5 - 5.1 mmol/L [facility] Work Phone: Sodium [Moles/Vol] 137 mmol/L 135 - 145 mmol/L [facility] Work Phone: Urea nitrogen [Mass/Vol] 53 mg/dL High 7 - 20 mg/d L [facility] Work Phone: CBC Auto DifferentialOrdered By: Delon Jessica on 10-22-2019 Absolute Baso # 0.1 10*3/uL 0 - 0.2 10*3/uL [facility] Work Phone: Absolute Neut # 5.9 10*3/uL 1.8 - 7 10*3/uL [employer] Work Phone: 22 Basophils/100 WBC (Bld) 0.9 % 0 - 2 % [facility] Work Phone: Eosinophils (Bld) [#/Vol] 0.3 10*3/uL 0 - 0.5 10*3/uL [employer] Work Phone: Eosinophils/100 WBC (Bld) 3.0 % 1 - 6 % [employer] Work Phone: Erythrocyte distribution width (RBC) [Ratio] 14.2 % 11.5 - 14.5 % [employer] Work Phone: Granulocytes/100 WBC (Bld) 63.0 % 40 - 80 % [facility] Work Phone: Hematocrit (Bld) [Volume fraction] 27.7 % Low 40 - 52 % [employer] Work Phone: Hemoglobin (Bld) [Mass/Vol] 9.4 g/dL Low 13 - 18 g/dL [facility] Work Phone: Interpretation and review of laboratory results Abnormal [facility] Work Phone: Lymphocytes (Bld) [#/Vol] 1.6 10*3/uL 1 - 4.3 10*3/uL [facility] Work Phone: Lymphocytes/100 WBC (Bld) 17.2 % Low 20 - 40 % [employer] Work Phone: MCH (RBC) [Entitic mass] 29.3 pg 26 - 34 pg [facility] Work Phone: MCHC 33.8 % 32 - 36 % [facility] Work Phone: MCV (RBC) [Entitic vol] 86.7 fL 80 - 98 fL S [facility] Work Phone: Monocytes (Bld) [#/Vol] 1.5 10*3/uL High 0 - 0.8 10*3/uL [facility] Work Phone: Monocytes/100 WBC (Bld) 15.9 % High 2 - 10 % S [facility] Work Phone: Platelet mean volume (Bld) [Entitic vol] 8.0 fL 7.4 - 10.4 fL [employer] Work Phone: Platelets (Bld) [#/Vol] 264 10*3/uL 140 - 440 10*3/uL [employer] Work Phone: RBC (Bld) [#/Vol] 3.20 10*6/uL Low 4.4 - 5.9 10*6/uL [employer] Work Phone: WBC (Bld) [#/Vol] 9.3 10*3/uL 3.6 - 10.7 10*3/uL [facility] Work Phone: Test Performed by [facility], [address] [place], [place] [address] [employer] Work Phone: Calcium, IonizedOrdered By: Delon Jessica on 10-22-2019 Interpretation and review of laboratory results Abnormal [employer] Work Phone: Ionized Ca 4.20 mg/dL Low 4.3 - 5.2 mg/dL [employer] Work Phone: pH (Bld) 7.43 [pH] [facility] Work Phone: Test Performed by [facility], [address] [place], [place] [address] [employer] Work Phone: FOLATEOrdered By: Earlene you on 10-22-2019 Folate 9.2 ng/mL 2.8 - 20 ng/mL [employer] Work Phone: Glomerular Basement Membrane (GBM) Antibody IgGOrdered By: Jeana Pedraza on 10-22-2019 GBM Ab, IgG (IFA) Negative Negative NA [employer] Work Phone: Comment on above: INTERPRETIVE INFORMA [...] biopsy. Test developed and characteristics determined by [employer]. See Compliance Statement D: [employer]/CS Performed by [employer], [address] [place] [address] [email or web address], Malvin Slade MD, Lab. Director Iron and TIBCOrdered By: Al Irving on 10-22-2019 Interpretation and review of laboratory results Abnormal [facility] Work Phone: Iron [Mass/Vol] 64 ug/dL 49 - 181 ug/dL [facility] Work Phone: Sat 27 % 15 - 50 % [facility] Work Phone: TIBC 234 ug/dL Low 261 - 497 ug/dL [facility] Work Phone: Test [facility] by [facility], [address] [place] [address] [facility] Work Phone: MagnesiumOrdered By: Delon Jessica on 10-22-2019 Magnesium [Mass/Vol] 2.0 mg/dL 1.6 - 2 .3 mg/dL [facility] Work Phone: No Panel InformationOrdered By: Earlene Irving on 10-22-2019 Test Performed by [facility], [address] [place] [address] [facility] Work Phone: No Panel InformationOrdered By: Delon Jessica on 10-22-2019 Interpretation and review of laboratory results Abnormal [facility] Work Phone: Test Performed by [facility], [address] [place] [address] [place] [address] [facility] Work Phone: PhosphorusOrdered By: Patrick Jessica on 10-22-2019 Phosphate [Mass/Vol] 8.7 mg/dL High 2.5 - 4 .5 mg/dL [facility] Work Phone: T4, FREEOrdered By: Earlene toure on 10-22-2019 Free T4 [Mass/Vol] 1.16 ng/dL 0.78 - 2. 19 ng/dL [facility] Work Phone: Test Performed by [facility], [address] Work Phone: TSH without ReflexOrdered By : Earlene Irving on 10-22-2019 TSH 0.836 u[IU]/mL 0.465 - 4.68 u[IU]/mL [facility] Work Phone: Test Performed by [employer] [facility], [address] Work Phone: VL RENAL ARTERIAL DUPLEX COM PLETEOrdered By: Brett Encarnacion on 10-22-2019 [facility] Renal Artery Duplex Ordering Physician: Brett Encarnacion Shear Tender: Laura Walsh Interpreting Physician: Luciano Shannon Location: [facility] Indications: Hypertension. Smoking history. Acute Kidney [...] supine position. Images were obtained using a [employer] E9 vascular ultrasound machine. The abdominal aorta, [...] + Kidney le (more content not included)... [employer] Work Phone: Mike, [address] Incoming Cardiology Results From [facility] - 10/22/2019 3:01 PM EST [facility] Renal Artery Duplex Ordering Physician: Brett Encarnacion Shear Tender: Laura Walsh Interpreting Physician: Luciano Shannon Location: [facility] Indications: Hypertension. Smoking history. Acute Kidney [...] supine position. Images were obtained using a [employer] E9 vascular ultrasound machine. The abdominal aorta, [...] electronically signed by Luciano Shannon 10/22/2019 15:01 [employer] Work Phone: [phone] [id number] By: Akin Irving on 10-22-2019 Cobalamin (Vitamin B12) [Mass/Vol] 959 pg/mL High 239 - 931 pg/mL [facility] Work Phone: [phone] Interpretation and review of laboratory results Abnormal [facility] Work Phone: [phone] Basic Metabolic PanelOrdered By: Delon Jessica on 10-21-2019 Anion gap [Moles/Vol] 16 mmol/L [facility] Work Phone: [phone] Calcium [Mass/Vol] 8.7 mg/dL 8.4 - 10. 4 mg/dL [facility] Work Phone: [phone] Chloride [Moles/Vol] 94 mmol/L Low 98 - 10 7 mmol/L [facility] Work Phone: [phone] CO2 [Moles/Vol] 25 mmol/L 22 - 30 mmol/L [facility] Work Phone: [phone] Creatinine [Mass/Vol] 11.16 mg/dL High 0.52 - 1.25 mg/dL [facility] Work Phone: [phone] EGFR IF NonAfrican [place] Citizen 4.8 mL/min >60 [facility] Work Phone: [phone] Comment on above: Source- MDRD equatio n with creatinine calibration to IDMS(NKDEP) eGFR not recommended for drug dose adjustment GFR/1.73 sq M.predicted among blacks MDRD (S/P/Bld) [Vol rate/Area] 5.8 mL/min/{1.73_m2} >60 [facility] Work Phone: [phone] Glucose [Mass/Vol] 103 mg/dL High 70 - 100 mg/dL [facility] Work Phone: [phone] Potassium [Moles/Vol] 4.9 mmol/L 3.5 - 5.1 mmol/L [facility] Work Phone: [phone] Sodium [Moles/Vol] 135 mmol/L 135 - 145 mmol/L [facility] Work Phone: [phone] Urea nitrogen [Mass/Vol] 83 mg/dL High 7 - 20 mg/d L [facility] Work Phone: [phone] CBC Auto DifferentialOrdered By: Delon Jessica on 10-21-2019 Absolute Baso # 0.1 10*3/uL 0 - 0.2 10*3/uL [facility] Work Phone: [phone] Absolute Neut # 6.4 10*3/uL 1.8 - 7 10*3/uL [facility] Work Phone: [phone] Basophils/100 WBC (Bld) 0.9 % 0 - 2 % S [facility] Work Phone: [phone] Eosinophils (Bld) [#/Vol] 0.2 10*3/uL 0 - 0.5 10*3/uL [facility] Work Phone: [phone] Eosinophils/100 WBC (Bld) 2.5 % 1 - 6 % [employer] Work Phone: 1 Erythrocyte distribution width (RBC) [Ratio] 14.8 % High 11.5 - 14.5 % [employer] Work Phone: 22 Granulocytes/100 WBC (Bld) 64.7 % 40 - 80 % [employer] Work Phone: Hematocrit (Bld) [Volume fraction] 27.6 % Low 40 - 52 % [employer] Work Phone: Hemoglobin (Bld) [Mass/Vol] 9.7 g/dL Low 13 - 18 g/dL [employer] Work Phone: 1 Comment on above: Post Transfusion Interpretation and review of laboratory results Abnormal [employer] Work Phone: Lymphocytes (Bld) [#/Vol] 1.8 10*3/uL 1 - 4.3 10*3/uL [employer] Work Phone: 22 Lymphocytes/100 WBC (Bld) 18.5 % Low 20 - 40 % [employer] Work Phone: 1 MCH (RBC) [Entitic mass] 30.0 pg 26 - 34 pg [employer] Work Phone: MCHC 35.3 % 32 - 36 % [employer] Work Phone: MCV (RBC) [Entitic vol] 84.8 fL 80 - 98 fL [facility] [employer] Work Phone: Monocytes (Bld) [#/Vol] 1.3 10*3/uL High 0 - 0.8 10*3/uL [employer] Work Phone: [phone] 22 Monocytes/100 WBC (Bld) 13.4 % High 2 - 10 % [employer] Work Phone: Platelet mean volume (Bld) [Entitic vol] 7.8 fL 7.4 - 10.4 fL [employer] Work Phone: 22 Platelets (Bld) [#/Vol] 299 10*3/uL 140 - 440 10*3/uL [employer] Work Phone: 22 RBC (Bld) [#/Vol] 3.25 10*6/uL Low 4.4 - 5.9 10*6/uL [facility] Work Phone: 1 WBC (Bld) [#/Vol] 9.8 10*3/uL 3.6 - 10.7 10*3/uL [facility] Work Phone: 1 Test Performed by [facility], [facility] [address] [place] [address] [facility] Work Phone: Calcium, IonizedOrdered By: Delon Jessica on 10-21-2019 Interpretation and review of laboratory results Abnormal [employer] Work Phone: Ionized Ca 4.10 mg/dL Low 4.3 - 5.2 mg/dL [facility] Work Phone: pH (Bld) 7.41 [pH] [facility] Work Phone: 1 Test Performed by [facility], [facility] [address] [place] [address] [facility] Work Phone: MagnesiumOrdered By: Delon Jessica on 10-21-2019 Magnesium [Mass/Vol] 1.9 mg/dL 1.6 - 2 .3 mg/dL [employer] Work Phone: 1 No Panel InformationOrdered By: Delon Jessica on 10-21-2019 Interpretation and review of laboratory results Abnormal [employer] Work Phone: Test Performed by [facility], [facility] [address] [place] [address] [employer] Work Phone: PERIPHERAL BLOOD SMEAR, PATH REVIEWOrdered By: Jeana Pedraza on 10-21-2019 Peripheral Smear see below [employer] Work Phone: Comment on above: See report under Fredy gical Pathology. Test Performed by [facility], [address] [place] [address] [employer] Work Phone: PhosphorusOrdered By: Patrick Jessica on 10-21-2019 Phosphate [Mass/Vol] 9.2 mg/dL High 2.5 - 4 .5 mg/dL [employer] Work Phone: US RETROPERITONEAL COMPLETEO rdered By: Randolph Liz on 10-21-2019 Patient Name: GLENN SNYDER ---Ultrasound--- Exam Date/Time 10/21/2019 15:32:01 EST Exam US Retroperitoneal Complete Ordering Physician ELLE PALAFOXAN Accession Number [id number] CPT4 Codes 08702 () Reason For Exam blossom Report US [...] Phone: Mike, [facility] Incoming Radiology Results From [facility] - 10/21/2019 7:32 PM EST Patient Name: GLENN SNYDER ---Ultrasound--- Exam Date/Time 10/21/2019 15:32:01 EST Exam US Retroperitoneal Complete Ordering Physician Paul RANDOLPH BAKER Accession Number [id number] CPT4 Codes 51653 () Reason For Exam blossom Report US [...] Ordering Physician MD ENCARNACION MATTHEW Accession Number [id number] CPT4 Codes 43682 () Reason For Exam vomiting Report ABDOMEN [...] Phone: Mike, [facility] Incoming Radiology Results From [facility] - 10/21/2019 6:30 PM EST Patient Name: GLENN SNYDER ---Diagnostic Radiology--- Exam Date/Time 10/21/2019 18:02:19 EST Exam CR Abdomen AP Ordering Physician MD ENCARNACION MATTHEW Accession Number [id number] CPT4 Codes 14365 () Reason For Exam vomiting Report ABDOMEN [...] WENDELL Transcribed Date and Time: 10/21/2019 6:30 [facility] Work Phone: 1 ANAOrdered By: Jeana Pedraza on 10-20-2019 CIARAN TITER <1:40 <1:40 {titer} [facility] Work Phone: 1 Test Performed by [facility], [facility] [place] [address] [employer] Work Phone: Anti-Neutrophilic Cytoplasmi c AntibodyOrdered By: Jeana Pedraza on 10-20-2019 C-ANCA Not detected Not-Detected {titer} [employer] Work Phone: p-ANCA Titer Not detected Not-Detected {titer} [facility] Work Phone: Test Performed by [facility], [facility] [place] [address] [facility] Work Phone: Basic Metabolic PanelOrdered By: Brett Encarnacion on 10-20-2019 Anion gap [Moles/Vol] 15 mmol/L [facility] Work Phone: Calcium [Mass/Vol] 8.4 mg/dL 8.4 - 10. 4 mg/dL [facility] Work Phone: Chloride [Moles/Vol] 94 mmol/L Low 98 - 10 7 mmol/L [facility] Work Phone: CO2 [Moles/Vol] 26 mmol/L 22 - 30 mmol/L [facility] Work Phone: Creatinine [Mass/Vol] 9.4 mg/dL High 0.52 - 1.25 mg/dL [facility] Work Phone: [phone] EGFR IF NonAfrican [place] Citizen 5.9 mL/min >60 [facility] Work Phone: [phone] Comment on above: Source- MDRD equatio n with creatinine calibration to IDMS(NKDEP) eGFR not recommended for drug dose adjustment GFR/1.73 sq M.predicted among blacks MDRD (S/P/Bld) [Vol rate/Area] 7.1 mL/min/{1.73_m2} >60 [facility] Work Phone: [phone] Glucose [Mass/Vol] 110 mg/dL High 70 - 100 mg/dL [facility] Work Phone: [phone] Interpretation and review of laboratory results Abnormal [facility] Work Phone: [phone] Potassium [Moles/Vol] 4.0 mmol/L 3.5 - 5.1 mmol/L [facility] Work Phone: [phone] Sodium [Moles/Vol] 135 mmol/L 135 - 145 mmol/L [facility] Work Phone: [phone] Urea nitrogen [Mass/Vol] 76 mg/dL High 7 - 20 mg/d L [facility] Work Phone: [phone] Test Performed by [facility], [address] [place] [id number] [place] [address] Work Phone: [phone] Basic Metabolic PanelOrdered By: Delon Jessica on 10-20-2019 Anion gap [Moles/Vol] 18 mmol/L [facility] Work Phone: [phone] Calcium [Mass/Vol] 7.9 mg/dL Low 8.4 - 10. 4 mg/dL [facility] Work Phone: [phone] Chloride [Moles/Vol] 95 mmol/L Low 98 - 10 7 mmol/L [facility] Work Phone: [phone] CO2 [Moles/Vol] 24 mmol/L 22 - 30 mmol/L [facility] Work Phone: [phone] Creatinine [Mass/Vol] 13.53 mg/dL High 0.52 - 1.25 mg/dL [facility] Work Phone: [phone] EGFR IF NonAfrican [place] Citizen 3.9 mL/min >60 [employer] Work Phone: [phone] Comment on above: Source- MDRD equatio n with creatinine calibration to IDMS(NKDEP) eGFR not recommended for drug dose adjustment GFR/1.73 sq M.predicted among blacks MDRD (S/P/Bld) [Vol rate/Area] 4.7 mL/min/{1.73_m2} >60 [employer] Work Phone: 1 Glucose [Mass/Vol] 102 mg/dL High 70 - 100 mg/dL [employer] Work Phone: Interpretation and review of laboratory results Abnormal [employer] Work Phone: Potassium [Moles/Vol] 4.7 mmol/L 3.5 - 5.1 mmol/L [facility] Work Phone: Sodium [Moles/Vol] 136 mmol/L 135 - 145 mmol/L [employer] Work Phone: 1 Urea nitrogen [Mass/Vol] 123 mg/dL High 7 - 20 mg/d L [employer] Work Phone: Test Performed by [facility], [address] [place] [address] [employer] Work Phone: [phone] Auto DifferentialOrdered By: Delon Jessica on 10-20-2019 Absolute Baso # 0.0 10*3/uL 0 - 0.2 10*3/uL [employer] Work Phone: [phone] Absolute Neut # 6.2 10*3/uL 1.8 - 7 10*3/uL [employer] Work Phone: Basophils/100 WBC (Bld) 0.4 % 0 - 2 % S [facility] Work Phone: Eosinophils (Bld) [#/Vol] 0.1 10*3/uL 0 - 0.5 10*3/uL [employer] Work Phone: [phone] Eosinophils/100 WBC (Bld) 1.1 % 1 - 6 % [employer] Work Phone: [phone] Erythrocyte distribution width (RBC) [Ratio] 13.4 % 11.5 - 14.5 % [employer] Work Phone: 1 22 Granulocytes/100 WBC (Bld) 69.5 % 40 - 80 % [facility] Work Phone: 1 Hematocrit (Bld) [Volume fraction] 19.3 % Low 40 - 52 % [facility] Work Phone: 1 Hemoglobin (Bld) [Mass/Vol] 6.6 g/dL Critically low 13 - 18 g/dL [facility] Work Phone: 1 Interpretation and review of laboratory results Abnormal [facility] Work Phone: 1 Lymphocytes (Bld) [#/Vol] 1.6 10*3/uL 1 - 4.3 10*3/uL [facility] Work Phone: 1) Lymphocytes/100 WBC (Bld) 18.3 % Low 20 - 40 % [facility] Work Phone: 1 MCH (RBC) [Entitic mass] 29.4 pg 26 - 34 pg [facility] Work Phone: MCHC 34.1 % 32 - 36 % [facility] Work Phone: 1 MCV (RBC) [Entitic vol] 86.2 fL 80 - 98 fL S [facility] Work Phone: 1 Monocytes (Bld) [#/Vol] 1.0 10*3/uL High 0 - 0.8 10*3/uL [facility] Work Phone: 1 22 Monocytes/100 WBC (Bld) 10.7 % High 2 - 10 % S [facility] Work Phone: Platelet mean volume (Bld) [Entitic vol] 7.4 fL 7.4 - 10.4 fL [facility] Work Phone: 1 22 Platelets (Bld) [#/Vol] 267 10*3/uL 140 - 440 10*3/uL [facility] Work Phone: 1 22 RBC (Bld) [#/Vol] 2.24 10*6/uL Low 4.4 - 5.9 10*6/uL [facility] Work Phone: 1 22 WBC (Bld) [#/Vol] 9.0 10*3/uL 3.6 - 10.7 10*3/uL [employer] Work Phone: 1 Calcium, IonizedOrdered By: Delon Jessica on 10-20-2019 Interpretation and review of laboratory results Abnormal [facility] Work Phone: 1 Ionized Ca 3.80 mg/dL Low 4.3 - 5.2 mg/dL [facility] Work Phone: 1 pH (Bld) 7.41 [pH] [facility] Work Phone: 1 Test Performed by [facility], [address] [place], [place] [address]A Work Phone: 1 Hemoglobin and Hematocrit, B loodOrdered By: Brett Encarnacion on 10-20-2019 Hematocrit (Bld) [Volume fraction] 25.2 % Low 40 - 52 % [facility] Work Phone: Hemoglobin (Bld) [Mass/Vol] 9.0 g/dL Low 13 - 18 g/dL [facility] Work Phone: Interpretation and review of laboratory results Abnormal [facility] Work Phone: Test Performed by [facility], [address] [place], [place] [address]A Work Phone: Hemoglobin and Hematocrit, B loodOrdered By: Delon Jessica on 10-20-2019 Hematocrit (Bld) [Volume fraction] 19.6 % Low 40 - 52 % [facility] Work Phone: Hemoglobin (Bld) [Mass/Vol] 6.7 g/dL Critically low 13 - 18 g/dL [facility] Work Phone: 1 Interpretation and review of laboratory results Abnormal [facility] Work Phone: 1 Test Performed by [facility], [address] [place], [place] [address] Work Phone: Laboratory - Blood bankOrder ed By: Delon Jessica on 10-20-2019 ABO and Rh group Nom (Bld) 9500 [facility] Work Phone: MagnesiumOrdered By: Delon Jessica on 10-20-2019 Magnesium [Mass/Vol] 1.8 mg/dL 1.6 - 2 .3 mg/dL [facility] Work Phone: 1 No Panel InformationOrdered By: Dleon Jessica on 10-20-2019 Test Performed by [facility], [address] [place], [place] [address] [facility] Work Phone: Test Performed by [facility], [address] [place], [place] [address] [facility] Work Phone: PREPARE RBC (CROSSMATCH), 2 UnitsOrdered By: Delon Jessica on 10-20-2019 Blood product unit ID (Dose) [#] [id number] [facility] Work Phone: Blood product unit ID (Dose) [#] [id number] [facility] Work Phone: Dispense Status Blood Bank transfused [facility] Work Phone: Expiration Date [id number] [facility] Work Phone: Product Code Blood Bank [id number] S [facility] Work Phone: [employer] Work Phone: PhosphorusOrdered By: Patrick Jessica on 10-20-2019 Interpretation and review of laboratory results Abnormal [facility] Work Phone: Phosphate [Mass/Vol] 12.3 mg/dL High 2.5 - 4 .5 mg/dL [facility] Work Phone: RBC MORPHOLOGYOrdered By: Caleb Jessica on 10-20-2019 Hypochromia Slight [facility] Work Phone: Poikilocytes Slight [facility] Work Phone: RBC morphology finding Nom (Bld) ABNORMAL [facility] Work Phone: Surgical PathologyOrdered By : Jeana Pedraza on 10-20-2019 Surgical Pathology Report SEE BELOW [facility] Work Phone: [phone] [facility] PATHOLOGY AND LABORATORY MEDICINE [address] [place] [address] FINAL PERIPHERAL BLOOD REPORT NAME: GLENN SNYDER : 1965 53 Y [facility] [id number] LOCATION: [place] [address] 5 PROCEDURE 10/19/2019 DATE: SURGEON: JEANA PEDRAZA MD RECEIVED DATE: 10/20/2019 ATTENDING BRETT ENCARNACION REPORT DATE: 10/20/2019 : COPIES TO: DIAGNOSIS: NORMOCYTIC ANEMIA WITH ANISOCYTOSIS, INCLUDING SCHISTOCYTES AND MILD AGGLUTINATION, RULE OUT ANEMIA OF CHRONIC INFLAMMATION/RENAL DISEASE, IRON/NUTRITIONAL DEFICIENCIES, COAGULOPATHY AND/OR PARAPROTEINEMIA NO BLASTS OR DYSGRANULOPOIESIS IS SEEN. INVENTORY CONTROL/SHIPPING RECEIVING/INVENTORY CONTROL/SHIPPING RECEIVING Signature> YOHANNES DIAL M.D. CLINICAL INFORMATION: Peripheral [...] characteristics determined by the clinical laboratories of [facility]. They have not been cleared by [...] specimens. DEPARTMENT OF PATHOLOGY AND LABORATORY MEDICINE [place], [place] [address] [employer] Work Phone: 1 Add On Lab TestOrdered By: Michelle Encarnacion on 10-19-2019 Add On Rejected [facility] Work Phone: 1 Test Per[facility] by [facility], [address] Work Phone: Add On Lab TestOrdered By: Cecil Nieves on 10-19-2019 Add On Accepted [employer] Work Phone: Comment on above: Specimen available & acceptable for analysis. Test Performed by [facility], [address] Work Phone: 1 Add On Accepted [employer] Work Phone: Comment on above: Specimen available & acceptable for analysis. Test Performed by [facility] [employer], [address] Work Phone: Basic Metabolic PanelOrdered By: Brett Encarnacion on 10-19-2019 Anion gap [Moles/Vol] 20 mmol/L [facility] Work Phone: Calcium [Mass/Vol] 8.4 mg/dL 8.4 - 10. 4 mg/dL [facility] Work Phone: Chloride [Moles/Vol] 96 mmol/L Low 98 - 10 7 mmol/L [facility] Work Phone: CO2 [Moles/Vol] 18 mmol/L Low 22 - 30 mmol/L [facility] Work Phone: Creatinine [Mass/Vol] 12.26 mg/dL High 0.52 - 1.25 mg/dL [facility] Work Phone: 1 EGFR IF NonAfrican [place] Citizen 4.3 mL/min >60 [facility] Work Phone: Comment on above: Source- MDRD equatio n with creatinine calibration to IDMS(NKDEP) eGFR not recommended for drug dose adjustment GFR/1.73 sq M.predicted among blacks MDRD (S/P/Bld) [Vol rate/Area] 5.2 mL/min/{1.73_m2} >60 [facility] Work Phone: 1 Glucose [Mass/Vol] 109 mg/dL High 70 - 100 mg/dL [facility] Work Phone: 1 Interpretation and review of laboratory results Abnormal [employer] Work Phone: 1 Potassium [Moles/Vol] 4.4 mmol/L 3.5 - 5.1 mmol/L [facility] Work Phone: Sodium [Moles/Vol] 134 mmol/L Low 135 - 145 mmol/L [facility] Work Phone: Urea nitrogen [Mass/Vol] 118 mg/dL High 7 - 20 mg/d L [employer] Work Phone: 1 Test Performed by [facility], [address] [place], [place] [address] [employer] Work Phone: Blood Occult Stool Screen #1 Ordered By: Callie Nieves on 10-19-2019 Hemoglobin.gastrointesti nal Ql (Stl) Negative Negative NA [facility] Work Phone: Test Performed by [facility], [address] [place], [place] [address] [employer] Work Phone: C3 ComplementOrdered By: Nadia Pedraza on 10-19-2019 C3 Complement 115 mg/dL 85 - 165 mg/dL [facility] Work Phone: [phone] [phone] ComplementOrdered By: Nadia Pedraza on 10-19-2019 C4 Complement 37 mg/dL 14 - 44 mg/dL [facility] Work Phone: 1 CBC Auto DifferentialOrdered By: Jeana Pedraza on 10-19-2019 Absolute Baso # 0.0 10*3/uL 0 - 0.2 10*3/uL [facility] Work Phone: 1 Absolute Neut # 7.7 10*3/uL High 1.8 - 7 10*3/uL [facility] Work Phone: 22 Basophils/100 WBC (Bld) 0.1 % 0 - 2 % [employer] Work Phone: Eosinophils (Bld) [#/Vol] 0.0 10*3/uL 0 - 0.5 10*3/uL [facility] Work Phone: Eosinophils/100 WBC (Bld) 0.0 % Low 1 - 6 % [facility] Work Phone: Erythrocyte distribution width (RBC) [Ratio] 13.1 % 11.5 - 14.5 % [employer] Work Phone: Granulocytes/100 WBC (Bld) 93.1 % High 40 - 80 % [employer] Work Phone: Hematocrit (Bld) [Volume fraction] 26.9 % Low 40 - 52 % [employer] Work Phone: Hemoglobin (Bld) [Mass/Vol] 9.1 g/dL Low 13 - 18 g/dL [facility] Work Phone: Interpretation and review of laboratory results Abnormal [facility] Work Phone: Lymphocytes (Bld) [#/Vol] 0.4 10*3/uL Low 1 - 4.3 10*3/uL [facility] Work Phone: 22 Lymphocytes/100 WBC (Bld) 5.1 % Low 20 - 40 % [facility] Work Phone: MCH (RBC) [Entitic mass] 29.2 pg 26 - 34 pg [facility] Work Phone: MCHC 33.8 % 32 - 36 % [facility] Work Phone: MCV (RBC) [Entitic vol] 86.5 fL 80 - 98 fL [facility] [employer] Work Phone: [phone] Monocytes (Bld) [#/Vol] 0.1 10*3/uL 0 - 0.8 10*3/uL [employer] Work Phone: [phone] Monocytes/100 WBC (Bld) 1.7 % Low 2 - 10 % S [facility] Work Phone: [phone] Platelet mean volume (Bld) [Entitic vol] 8.0 fL 7.4 - 10.4 fL [employer] Work Phone: [phone] Platelets (Bld) [#/Vol] 246 10*3/uL 140 - 440 10*3/uL [employer] Work Phone: 1 RBC (Bld) [#/Vol] 3.11 10*6/uL Low 4.4 - 5.9 10*6/uL [employer] Work Phone: 1 WBC (Bld) [#/Vol] 8.3 10*3/uL 3.6 - 10.7 10*3/uL [employer] Work Phone: [phone] Test Performed by [facility], [address] [place] [address] [employer] Work Phone: [phone] CT Abdomen Pelvis Wo Contras tOrdered By: Callie Nieves on 10-19-2019 Patient Name: GLENN SNYDER ---CT--- Exam Date/Time 10/19/2019 08:12:[address] Abdomen/Pelvis (No PO, No IV) Ordering Physician DO NIEVES DAVID J Accession Number [id number] CPT4 Codes 75803 (CT Abdomen/Pelvis (No PO, No IV)) Reason [...] bilateral renal atrophy. No urologic calcification. 3. Iqll-ph-jlkozwcy diverticulosis. No acute diverticulitis. Report Dictated on --- Final --- Dictating Physician: MD BUTCHER ANTHONY J Signed Date and Time: 10/19/2019 8:40 am Signed by: MD BUTCHER ANTHONY J Transcribed Date and Time: 10/19/2019 8:41 [facility] Work Phone: Mike, [facility] Incoming Radiology Results From [facility] - 10/19/2019 8:42 AM EST Patient Name: GLENN SNYDER ---CT--- Exam Date/Time 10/19/2019 08:12:[address] Abdomen/Pelvis (No PO, No IV) Ordering Physician DO NIEVES DAVID J Accession Number [id number] CPT4 Codes 93765 (CT Abdomen/Pelvis (No PO, No IV)) Reason [...] bilateral renal atrophy. No urologic calcification. 3. Ygrq-en-znynvmmt diverticulosis. No acute diverticulitis. Report Dictated on --- Final --- Dictating Physician: MD BUTCHER ANTHONY J Signed Date and Time: 10/19/2019 8:40 am Signed by: MD BUTCHER ANTHONY J Transcribed Date and Time: 10/19/2019 8:41 [facility] Work Phone: [phone] Comprehensive Metabolic Pane lOrdered By: Callie Nieves on 10-19-2019 Albumin [Mass/Vol] 3.9 g/dL 3.5 - 5 g/dL [facility] Work Phone: [phone] ALP [Catalytic activity/Vol] 58 U/L 38 - 126 U/L [facility] Work Phone: [phone] ALT [Catalytic activity/Vol] 27 U/L 13 - 69 U/L [facility] Work Phone: [phone] Anion gap [Moles/Vol] 22 mmol/L [facility] Work Phone: [phone] AST [Catalytic activity/Vol] 41 U/L 15 - 46 U/L [employer] Work Phone: [phone] Bilirubin [Mass/Vol] 0.5 mg/dL 0.2 - 1 .3 mg/dL [employer] Work Phone: [phone] Calcium [Mass/Vol] 8.0 mg/dL Low 8.4 - 10. 4 mg/dL [facility] Work Phone: [phone] Chloride [Moles/Vol] 106 mmol/L 98 - 10 7 mmol/L [facility] Work Phone: CO2 [Moles/Vol] 8 mmol/L Low 22 - 30 mmol/L [employer] Work Phone: [phone] Creatinine [Mass/Vol] 17.04 mg/dL High 0.52 - 1.25 mg/dL [facility] Work Phone: [phone] IF NonAfrican [place] Citizen 3.0 mL/min >60 [facility] Work Phone: [phone] Comment on above: Source- MDRD equatio n with creatinine calibration to IDMS(NKDEP) eGFR not recommended for drug dose adjustment GFR/1.73 sq M.predicted among blacks MDRD (S/P/Bld) [Vol rate/Area] 3.6 mL/min/{1.73_m2} >60 [facility] Work Phone: [phone] Glucose [Mass/Vol] 93 mg/dL 70 - 100 mg/dL [facility] Work Phone: [phone] Interpretation and review of laboratory results Abnormal [facility] Work Phone: [phone] Potassium [Moles/Vol] 6.6 mmol/L Critically high 3.5 - 5.1 mmol/L [facility] Work Phone: [phone] Protein [Mass/Vol] 7.1 g/dL 6.3 - 8.2 g/dL [facility] Work Phone: [phone] Sodium [Moles/Vol] 136 mmol/L 135 - 145 mmol/L [facility] Work Phone: [phone] Urea nitrogen [Mass/Vol] 179 mg/dL High 7 - 20 mg/d L [facility] Work Phone: [phone] Test Performed by [facility], [address], [place], [place] [address] [facility] Work Phone: [phone] Albumin [Mass/Vol] 4.3 g/dL 3.5 - 5 g/dL [facility] Work Phone: [phone] ALP [Catalytic activity/Vol] 68 U/L 38 - 126 U/L [facility] Work Phone: [phone] ALT [Catalytic activity/Vol] 31 U/L 13 - 69 U/L [facility] Work Phone: [phone] Anion gap [Moles/Vol] 22 mmol/L [facility] Work Phone: [phone] AST [Catalytic activity/Vol] 38 U/L 15 - 46 U/L [facility] Work Phone: [phone] Bilirubin [Mass/Vol] 0.3 mg/dL 0.2 - 1 .3 mg/dL [facility] Work Phone: [phone] Calcium [Mass/Vol] 8.1 mg/dL Low 8.4 - 10. 4 mg/dL [facility] Work Phone: [phone] Chloride [Moles/Vol] 104 mmol/L 98 - 10 7 mmol/L [facility] Work Phone: [phone] CO2 [Moles/Vol] 10 mmol/L Low 22 - 30 mmol/L [facility] Work Phone: [phone] Creatinine [Mass/Vol] 17.95 mg/dL High 0.52 - 1.25 mg/dL [facility] Work Phone: [phone] IF NonAfrican [place] Citizen 2.8 mL/min >60 [facility] Work Phone: [phone] Comment on above: Source- MDRD equatio n with creatinine calibration to IDMS(NKDEP) eGFR not recommended for drug dose adjustment GFR/1.73 sq M.predicted among blacks MDRD (S/P/Bld) [Vol rate/Area] 3.4 mL/min/{1.73_m2} >60 [facility] Work Phone: [phone] Glucose [Mass/Vol] 101 mg/dL High 70 - 100 mg/dL [facility] Work Phone: [phone] Interpretation and review of laboratory results Abnormal [facility] Work Phone: [phone] Potassium [Moles/Vol] 7.3 mmol/L Critically high 3.5 - 5.1 mmol/L [facility] Work Phone: [phone] Protein [Mass/Vol] 7.9 g/dL 6.3 - 8.2 g/dL [facility] Work Phone: [phone] Sodium [Moles/Vol] 136 mmol/L 135 - 145 mmol/L [facility] Work Phone: [phone] Urea nitrogen [Mass/Vol] 179 mg/dL High 7 - 20 mg/d L [facility] Work Phone: [phone] Test Performed by [facility], [address] [place] [id number] [place] [address] Work Phone: [phone] EKG 12 Lead - Chest PainOrde red By: Callie Nieves on 10-19-2019 [facility] Test Date: 2019-10-19 Pat Name: Glenn Snyder Department: 2A Room: 19 Gender: M 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: 1965 Requested By: CALLIE NIEVES Order Number: [id number] Reading MD: Alessia Tapia Measurements Intervals [place] Rate: 97 P: 78 NV: 128 QRS: 49 QRSD: 106 T: 83 QT: 376 QTc: 478 Interpretive Statements SINUS RHYTHM LEFT ATRIAL ABNORMALITY INCOMPLETE RIGHT BUNDLE BRANCH BLOCK LEFT VENTRICULAR HYPERTROPHY BORDERLINE PROLONGED QT INTERVAL No previous ECG available for comparison Electronically Signed On 10-19-2019 8:49:06 EST by Alessia Tapia [facility] Work Phone: [phone] Mike, [facility] Incoming Cardiology Results From [facility] - 10/19/2019 8:50 AM EST [facility] Test Date: 2019-10-19 Pat Name: Glenn Snyder Department: 2A Room: 19 Gender: M 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: 1965 Requested By: CALLIE NIEVES Order Number: [id number] Reading MD: Alessia Tapia Measurements Intervals [place] Rate: 97 P: 78 NV: 128 QRS: 49 QRSD: 106 T: 83 QT: 376 QTc: 478 Interpretive Statements SINUS RHYTHM LEFT ATRIAL ABNORMALITY INCOMPLETE RIGHT BUNDLE BRANCH BLOCK LEFT VENTRICULAR HYPERTROPHY BORDERLINE PROLONGED QT INTERVAL No previous ECG available for comparison Electronically Signed On 10-19-2019 8:49:06 EST by Alessia Tapia [employer] Work Phone: [phone] HEPATITIS B SURFACE ANTIGENO rdered By: Jeana Pedraza on 10-19-2019 Hepatitis B Surface Ag Not detected Not-D etected NA [employer] Work Phone: [phone] HIV ScreenOrdered By: Adan Encarnacion on 10-19-2019 HIV 1+2 [id number] AG, EIA Non-Reactive Nonreactive NA [employer] Work Phone: [phone] Comment on above: Results obtained usi ng [...] # 0.1 10*3/uL 0 - 0.2 10*3/uL [employer] Work Phone: Absolute Neut # 11.3 10*3/uL High 1.8 - 7 10*3/uL [employer] Work Phone: 22 Basophils/100 WBC (Bld) 0.6 % 0 - 2 % S [facility] Work Phone: Eosinophils (Bld) [#/Vol] 0.2 10*3/uL 0 - 0.5 10*3/uL [employer] Work Phone: 22 Eosinophils/100 WBC (Bld) 1.2 % 1 - 6 % [employer] Work Phone: Erythrocyte distribution width (RBC) [Ratio] 13.4 % 11.5 - 14.5 % [employer] Work Phone: 22 Granulocytes/100 WBC (Bld) 80.5 % High 40 - 80 % [employer] Work Phone: Hematocrit (Bld) [Volume fraction] 23.2 % Low 40 - 52 % [employer] Work Phone: Hemoglobin (Bld) [Mass/Vol] 7.8 g/dL Low 13 - 18 g/dL [employer] Work Phone: 1 Interpretation and review of laboratory results Abnormal [employer] Work Phone: Lymphocytes (Bld) [#/Vol] 1.4 10*3/uL 1 - 4.3 10*3/uL [employer] Work Phone: 1 Lymphocytes/100 WBC (Bld) 9.8 % Low 20 - 40 % [employer] Work Phone: MCH (RBC) [Entitic mass] 29.4 pg 26 - 34 pg [employer] Work Phone: MCHC 33.6 % 32 - 36 % [employer] Work Phone: MCV (RBC) [Entitic vol] 87.4 fL 80 - 98 fL [facility] [employer] Work Phone: Monocytes (Bld) [#/Vol] 1.1 10*3/uL High 0 - 0.8 10*3/uL [employer] Work Phone: Monocytes/100 WBC (Bld) 7.9 % 2 - 10 % [employer] Work Phone: Platelet mean volume (Bld) [Entitic vol] 7.6 fL 7.4 - 10.4 fL [employer] Work Phone: Platelets (Bld) [#/Vol] 293 10*3/uL 140 - 440 10*3/uL [employer] Work Phone: RBC (Bld) [#/Vol] 2.66 10*6/uL Low 4.4 - 5.9 10*6/uL [employer] Work Phone: WBC (Bld) [#/Vol] 14.1 10*3/uL High 3.6 - 10.7 10*3/uL [employer] Work Phone: 1 Test Performed by [facility], [address] [place] [address] [employer] Work Phone: Hepatitis C AntibodyOrdered By: Jeana Pedraza on 10-19-2019 Hepatitis C Ab Not detected Not-Detected NA [employer] Work Phone: 1 Comment on above: Patients with DETECT ED Hepatitis C Ab results should have a new specimen submitted for supplemental testing with a Hepatitis C Quantitative RNA assay (viral load), if clinically indicated. MagnesiumOrdered By: Callie shaw on 10-19-2019 Magnesium [Mass/Vol] 2.1 mg/dL 1.6 - 2 .3 mg/dL [facility] Work Phone: Test Performed by [facility], [address] [place] [address] [employer] Work Phone: No Panel InformationOrdered By: Brett Encarnacion on 10-19-2019 Test Performed by [facility], [address] [place] [address] [employer] Work Phone: No Panel InformationOrdered By: Jeana Pedraza on 10-19-2019 Test Performed by [facility], [address] [place] [address] [employer] Work Phone: PROCALCITONINOrdered By: Eldon Encarnacion on 10-19-2019 Interpretation See Below [employer] Work Phone: Comment on above: PCT <0.50 = Low risk of severe sepsis and/or septic shock. PCT >2.00 = High risk of severe sepsis and/or septic shock. Interpretation and review of laboratory results Abnormal [employer] Work Phone: Procalcitonin 0.74 ng/mL Abnormal <0.10 [facility] Work Phone: PhosphorusOrdered By: Callie Nieves on 10-19-2019 Interpretation and review of laboratory results Abnormal [employer] Work Phone: Phosphate [Mass/Vol] 14.8 mg/dL High 2.5 - 4 .5 mg/dL [employer] Work Phone: Test Performed by [facility], [address] [place] [address] [employer] Work Phone: TYPE AND SCREENOrdered By: Cecil Nieves on 10-19-2019 ABO Grouping O [employer] Work Phone: Rh Type Negative [facility] Work Phone: 1 Comment on above: Test Performed by [employer] [facility], [address], [place], [place] [address] Test Performed by [facility], [address] [place] [address] [facility] Work Phone: 1 TroponinOrdered By: Callie garcia on 10-19-2019 Interpretation and review of laboratory results Abnormal [facility] Work Phone: 1 Troponin I.cardiac [Mass/Vol] 0.075 ng/mL High 0 - 0.034 ng/mL [facility] Work Phone: 1 Comment on above: . Test Performed by [facility], [address], [place], [place] [address] [facility] Work Phone: 1 UrinalysisOrdered By: Callie Nieves on 10-19-2019 AMORPHOUS CRYSTAL Few Negative /[HPF] [facility] Work Phone: 1 Appearance (U) Clear Clear NA [facility] Work Phone: Bacteria, UA Few Negative /[HPF] [facility] Work Phone: 1 Bilirubin Urine Negative Negative mg/dL [facility] Work Phone: Color (U) Colorless Lt. Yellow NA [facility] Work Phone: 1 Glucose, Ur 200 mg/dL Normal (<70) [facility] Work Phone: 1 Ketones Ql (U) Negative Negative mg/dL [facility] Work Phone: ) LEUKOCYTES, UA Negative Negative Juliana/uL [facility] Work Phone: 1) Mucous Threads Few Negative /[LPF] [facility] Work Phone: 1) Nitrite, Urine Negative Negative NA [facility] Work Phone: 1 Occult Blood,Urine 0.2 mg/dL Negative [facility] Work Phone: 1 pH (U) 6.0 [pH] [facility] Work Phone: 1 Protein (U) [Mass/Vol] 200 mg/dL Negative [employer] Work Phone: RBC, UA 6-10 0 - 2 /[HPF] [facility] Work Phone: Specific [place], Urine 1.009 S [facility] Work Phone: [phone] Squam Epithel, UA 0-2 3 - 5 /[HPF] [facility] Work Phone: [phone] Urobilinogen, Urine Normal Normal ( 0-1) mg/dL [facility] Work Phone: [phone] WBC, UA 6-10 0 - 5 /[HPF] [facility] Work Phone: [phone] Test Performed by [employer] [facility], [address] [place], [place] [address] [facility] Work Phone: XR CHEST PORTABLEOrdered By: Brett Encarnacion on 10-19-2019 Patient Name: GLENN SNYDER ---Diagnostic Radiology--- Exam Date/Time 10/19/2019 12:11:06 EST Exam CR Chest Portable Ordering Physician MD ENCARNACION MATTHEW Accession Number [id number] CPT4 Codes 59680 () Reason For Exam line placement/vascath Report [...] RISA Transcribed Date and Time: 10/19/2019 12:56 [facility] Work Phone: Mike, [facility] Incoming Radiology Results From [facility] - 10/19/2019 12:57 PM EST Patient Name: GLENN SNYDER ---Diagnostic Radiology--- Exam Date/Time 10/19/2019 12:11:06 EST Exam CR Chest Portable Ordering Physician MD NEGRO BRETT Accession Number [id number] CPT4 Codes 44586 () Reason For Exam line placement/vascath Report [...] RISA Transcribed Date and Time: 10/19/2019 12:56 [facility] Work Phone: Vital Signs Date Time Vital Sign Value Performing Clinician Noreeni kee 05-07-2025 16:53-0400 Body height 177.8 cm Keiry Solares MD Work Phone: [facility] 05-07-2025 16:53-0400 Body mass index (BMI) [Ratio] 21.09 kg/m2 Keiry Solares MD Work Phone: [facility] 05-07-2025 16:53-0400 Body temperature 98.1 [degF] Keiry Solares MD Work Phone: [facility] 05-07-2025 16:53-0400 Body weight 66.68 kg Keiry Solares MD Work Phone: [facility] 05-07-2025 16:53-0400 Diastolic blood pressure 69 mm[Hg] Keiry Solares MD Work Phone: [facility] 05-07-2025 16:53-0400 Heart rate 79 /min Keiry Solares MD Work Phone: [facility] 05-07-2025 16:53-0400 Respiratory rate 16 /min Keiry Solares MD Work Phone: [employer] 05-07-2025 16:53-0400 SaO2% (BldA) [Mass fraction] 97 % Keiry Solares MD Work Phone: [employer] 05-07-2025 16:53-0400 Systolic blood pressure 110 mm[Hg] Keiry Solares MD Work Phone: [employer] 05-04-2025 22:17-0400 Body height 177.8 cm Bessie Belkis DO Work Phone: [employer] 05-04-2025 22:17-0400 Body mass index (BMI) [Ratio] 21.09 kg/m2 Bessie Belkis DO Work Phone: [employer] 05-04-2025 22:17-0400 Body temperature 98.49 [degF] Bessie Belkis DO Work Phone: [employer] 05-04-2025 22:17-0400 Body weight 66.68 kg Bessie Belkis DO Work Phone: [employer] 05-04-2025 22:17-0400 Diastolic blood pressure 63 mm[Hg] Bessie Belkis DO Work Phone: [employer] 05-04-2025 22:17-0400 Heart rate 92 /min Bessie Belkis DO Work Phone: [employer] 05-04-2025 22:17-0400 Respiratory rate 20 /min Bessie Belkis DO Work Phone: [employer] 05-04-2025 22:17-0400 SaO2% (BldA) [Mass fraction] 100 % Bessie Belkis DO Work Phone: [employer] 05-04-2025 22:17-0400 Systolic blood pressure 118 mm[Hg] Bessie Belkis DO Work Phone: [employer] 05-04-2025 08:59-0400 Body temperature 98.4 [degF] Amanda Haddad DOCUMENT CLERK - VIDEO PRODUCTION ASSISTANT Work Phone: [facility] 05-04-2025 08:59-0400 Diastolic blood pressure 67 mm[Hg] Amanda Haddad APRN - VIDEO PRODUCTION ASSISTANT Work Phone: [facility] 05-04-2025 08:59-0400 Heart rate 95 /min Amanda Haddad APRN - VIDEO PRODUCTION ASSISTANT Work Phone: [facility] 05-04-2025 08:59-0400 Respiratory rate 20 /min Amanda Haddad APRN - VIDEO PRODUCTION ASSISTANT Work Phone: [facility] 05-04-2025 08:59-0400 Systolic blood pressure 104 mm[Hg] Amanda Haddad APRN - VIDEO PRODUCTION ASSISTANT Work Phone: [facility] 04-17-2025 09:36-0400 Body height 177.8 cm Keiry Solares MD Work Phone: [facility] 04-17-2025 09:36-0400 Body mass index (BMI) [Ratio] 21.81 kg/m2 Keiry Solares MD Work Phone: [facility] 04-17-2025 09:36-0400 Body temperature 98.01 [degF] Keiry Solares MD Work Phone: [facility] 04-17-2025 09:36-0400 Body weight 68.95 kg Keiry Solares MD Work Phone: [facility] 04-17-2025 09:36-0400 Diastolic blood pressure 88 mm[Hg] Keiry Solares MD Work Phone: [facility] 04-17-2025 09:36-0400 Respiratory rate 18 /min Keiry Solares MD Work Phone: [facility] 04-17-2025 09:36-0400 Systolic blood pressure 113 mm[Hg] Keiry Solares MD Work Phone: [facility] 04-17-2025 09:29-0400 Heart rate 81 /min Keiry Solares MD Work Phone: [facility] 04-17-2025 09:29-0400 SaO2% (BldA) [Mass fraction] 100 % Keiry Solares MD Work Phone: [facility] 04-09-2025 15:00-0400 Body temperature 98.29 [degF] Leilani Aba Work Phone: [facility] 04-09-2025 15:00-0400 Diastolic blood pressure 64 mm[Hg] Leilani Aba Work Phone: [facility] 04-09-2025 15:00-0400 Heart rate 90 /min Leilani Aba Work Phone: [facility] 04-09-2025 15:00-0400 Respiratory rate 16 /min Leilani Aba Work Phone: [facility] 04-09-2025 15:00-0400 SaO2% (BldA) [Mass fraction] 98 % Leilani Aba Work Phone: [facility] 04-09-2025 15:00-0400 Systolic blood pressure 117 mm[Hg] Leilani Aba Work Phone: [facility] 04-09-2025 11:58-0400 Body height 177.8 cm Leilani Aba Work Phone: [facility] 04-09-2025 11:58-0400 Body mass index (BMI) [Ratio] 21.52 kg/m2 Leilani Aba Work Phone: [facility] 04-09-2025 11:58-0400 Body weight 68.04 kg Leilani Aba Work Phone: [facility] 04-05-2025 20:00-0400 Diastolic blood pressure 89 mm[Hg] Dieter Villegas MD Work Phone: [facility] 04-05-2025 20:00-0400 Heart rate 91 /min Dieter Villegas MD Work Phone: [facility] 04-05-2025 20:00-0400 Respiratory rate 16 /min Dieter Villegas MD Work Phone: [facility] 04-05-2025 20:00-0400 SaO2% (BldA) [Mass fraction] 97 % Dieter Villegas MD Work Phone: [facility] 04-05-2025 20:00-0400 Systolic blood pressure 148 mm[Hg] Dieter Villegas MD Work Phone: [facility] 04-05-2025 17:15-0400 Body temperature 97.9 [degF] Dieter Villegas MD Work Phone: [facility] 04-05-2025 10:15-0400 Body height 177.8 cm Dieter Villegas MD Work Phone: [facility] 04-05-2025 10:15-0400 Body mass index (BMI) [Ratio] 21.09 kg/m2 Dieter Villegas MD Work Phone: [facility] 04-05-2025 10:15-0400 Body weight 66.68 kg Dieter Villegas MD Work Phone: [facility] 03-21-2025 16:02-0400 Body temperature 98.29 [degF] Keiry Solares MD Work Phone: [facility] 03-21-2025 16:02-0400 Diastolic blood pressure 85 mm[Hg] Keiry Solares MD Work Phone: [facility] 03-21-2025 16:02-0400 Heart rate 71 /min Keiry oSlares MD Work Phone: [facility] 03-21-2025 16:02-0400 Respiratory rate 18 /min Keiry Solares MD Work Phone: [facility] 03-21-2025 16:02-0400 SaO2% (BldA) [Mass fraction] 94 % Keiry Solares MD Work Phone: [facility] 03-21-2025 16:02-0400 Systolic blood pressure 147 mm[Hg] Keiry Solares MD Work Phone: [facility] 03-21-2025 03:15-0400 Body mass index (BMI) [Ratio] 22.24 kg/m2 Keiry Solares MD Work Phone: [facility] 03-21-2025 03:15-0400 Body weight 70.31 kg Keiry Solares MD Work Phone: [facility] 03-14-2025 16:17-0400 Body height 177.8 cm Keiry Solares MD Work Phone: [facility] 03-05-2025 14:03-0400 Body temperature 97 [degF] Mejgon Cuca DO Work Phone: [address] [place] 03-05-2025 14:03-0400 Diastolic blood pressure 83 mm[Hg] Mejgon Cuca DO Work Phone: [address] [place] 03-05-2025 14:03-0400 Heart rate 78 /min Mejgon Cuca DO Work Phone: [facility] 03-05-2025 14:03-0400 Respiratory rate 16 /min Mejgon Cuca DO Work Phone: [address] [place] 03-05-2025 14:03-0400 SaO2% (BldA) [Mass fraction] 100 % Mejgon Cuca DO Work Phone: [address] [place] 03-05-2025 14:03-0400 Systolic blood pressure 137 mm[Hg] Mejgon Cuca DO Work Phone: [facility] 02-23-2025 14:13-0400 Body height 177.8 cm Mejgon Cuca DO Work Phone: [address] [place] 02-23-2025 14:13-0400 Body mass index (BMI) [Ratio] 19.23 kg/m2 Mejgon Cuca DO Work Phone: [employer] 02-23-2025 14:13-0400 Body weight 60.78 kg Mejgon Cuca DO Work Phone: [facility] 02-14-2025 10:30-0400 Body height 177.8 cm Mikala Day PA-C Work Phone: [facility] [place] 02-14-2025 10:30-0400 Body mass index (BMI) [Ratio] 18.65 kg/m2 Mikala JO-C Work Phone: [facility] 02-14-2025 10:30-0400 Body temperature 96.8 [degF] Mikala JO-C Work Phone: [facility] 02-14-2025 10:30-0400 Body weight 58.97 kg Mikala JO-C Work Phone: [facility] 02-14-2025 10:30-0400 Diastolic blood pressure 72 mm[Hg] Mikala JO-C Work Phone: [facility] 02-14-2025 10:30-0400 Heart rate 89 /min Mikala JO-C Work Phone: [facility] 02-14-2025 10:30-0400 SaO2% (BldA) [Mass fraction] 98 % Mikala JO-Walter Work Phone: [facility] 02-14-2025 10:30-0400 Systolic blood pressure 138 mm[Hg] Mikala JO-C Work Phone: [facility] 02-01-2025 15:02-0400 Body temperature 96.69 [degF] Lazaro Rojo MD Work Phone: [facility] 02-01-2025 15:02-0400 Diastolic blood pressure 60 mm[Hg] Lazaro Rojo MD Work Phone: [address] [place] 02-01-2025 15:02-0400 Heart rate 81 /min Lazaro Rojo MD Work Phone: [address] [place] 02-01-2025 15:02-0400 Respiratory rate 16 /min Lazaro Rojo MD Work Phone: [address] [place] 02-01-2025 15:02-0400 SaO2% (BldA) [Mass fraction] 98 % Lazaro Rojo MD Work Phone: [facility] [place] 02-01-2025 15:02-0400 Systolic blood pressure 118 mm[Hg] Lazaro Rojo MD Work Phone: [facility] [place] 02-01-2025 05:36-0400 Body mass index (BMI) [Ratio] 14.58 kg/m2 Lazaro Rojo MD Work Phone: [facility] [place] 02-01-2025 05:36-0400 Body weight 46.1 kg Lazaro Rojo MD Work Phone: [facility] [place] 01-30-2025 10:02-0400 Body height 177.8 cm Lazaro Rojo MD Work Phone: [facility] [place] 08-28-2024 15:33-0500 Body height 177.8 cm Jr Shah MD Work Phone: [facility] [place] 08-28-2024 15:33-0500 Body mass index (BMI) [Ratio] 29.56 kg/m2 Jr Shah MD Work Phone: [facility] [place] 08-28-2024 15:33-0500 Body weight 93.44 kg Jr Shah MD Work Phone: [facility] [place] 08-28-2024 15:33-0500 Diastolic blood pressure 80 mm[Hg] Jr Shah MD Work Phone: [facility] [place] 08-28-2024 15:33-0500 Heart rate 75 /min Jr Shah MD Work Phone: [facility] [place] 08-28-2024 15:33-0500 Systolic blood pressure 130 mm[Hg] Jr Shah MD Work Phone: [facility] [place] 11-12-2023 14:16-0500 Diastolic blood pressure 84 mm[Hg] Quiana Contreras APRN - VIDEO PRODUCTION ASSISTANT Work Phone: [facility] [place] 11-12-2023 14:16-0500 Systolic blood pressure 138 mm[Hg] Quiana Contreras APRN - VIDEO PRODUCTION ASSISTANT Work Phone: [facility] [place] 11-12-2023 13:41-0500 Body height 177.8 cm Quiana Contreras APRN - VIDEO PRODUCTION ASSISTANT Work Phone: [address] [place] 11-12-2023 13:41-0500 Body mass index (BMI) [Ratio] 29.84 kg/m2 Quiana Contreras APRN - VIDEO PRODUCTION ASSISTANT Work Phone: [facility] [place] 11-12-2023 13:41-0500 Body weight 94.35 kg Quiana Contreras APRN - SAMIA Work Phone: [facility] [place] 11-12-2023 13:41-0500 Heart rate 85 /min Quiana Contreras APRN - VIDEO PRODUCTION ASSISTANT Work Phone: [address] [place] 08-17-2023 13:12-0500 Diastolic blood pressure 67 mm[Hg] Dangelo Horne DO Work Phone: [address] [place] 08-17-2023 13:12-0500 Heart rate 84 /min Dioniciochandana Ozzie DO Work Phone: [employer] 08-17-2023 13:12-0500 Respiratory rate 18 /min Dionicion Fitzwilliam DO Work Phone: [employer] 08-17-2023 13:12-0500 SaO2% (BldA) [Mass fraction] 98 % Dionicion Fitzwilliam DO Work Phone: [employer] 08-17-2023 13:12-0500 Systolic blood pressure 94 mm[Hg] Dioniciochandana Fitzwilliam DO Work Phone: [employer] 08-17-2023 09:13-0500 Body height 177.8 cm Dionicion Fitzwilliam DO Work Phone: [employer] 08-17-2023 09:13-0500 Body mass index (BMI) [Ratio] 28.7 kg/m2 Dionicion Fitzwilliam DO Work Phone: [address] [place] 08-17-2023 09:13-0500 Body weight 90.72 kg Dionicion Fitzwilliam DO Work Phone: [address] [place] 08-17-2023 08:50-0500 Body temperature 99 [degF] Dangelo Horne DO Work Phone: [facility] [place] 05-01-2023 20:36-0400 Diastolic blood pressure 85 mm[Hg] Jese Frank MD Work Phone: [facility] [place] 05-01-2023 20:36-0400 Heart rate 74 /min Jese Frank MD Work Phone: [facility] [place] 05-01-2023 20:36-0400 Respiratory rate 20 /min Jese Frank MD Work Phone: [facility] [place] 05-01-2023 20:36-0400 SaO2% (BldA) [Mass fraction] 95 % Jese Frank MD Work Phone: [facility] [place] 05-01-2023 20:36-0400 Systolic blood pressure 135 mm[Hg] Jese Frank MD Work Phone: [facility] [place] 05-01-2023 20:08-0400 Body height 177.8 cm Jese Frank MD Work Phone: [facility] [place] 05-01-2023 20:08-0400 Body mass index (BMI) [Ratio] 28.7 kg/m2 Jese Frank MD Work Phone: [facility] [place] 05-01-2023 20:08-0400 Body temperature 98.2 [degF] Jese Frank MD Work Phone: [facility] [place] 05-01-2023 20:08-0400 Body weight 90.72 kg Jese Frank MD Work Phone: [facility] [place] 12-25-2021 15:50-0400 Body height 177.8 cm Rudy Painter MD Work Phone: [facility] 12-25-2021 15:50-0400 Body weight 99.79 kg Rudy Painter MD Work Phone: [facility] 12-25-2021 15:50-0400 Diastolic blood pressure 72 mm[Hg] Rudy Painter MD Work Phone: [facility] 12-25-2021 15:50-0400 Heart rate 70 /min Rudy Painter MD Work Phone: [facility] 12-25-2021 15:50-0400 Systolic blood pressure 130 mm[Hg] Rudy Painter MD Work Phone: [facility] 09-15-2021 11:20-0500 Body temperature 97.59 [degF] Cindy Patel MD Work Phone: [facility] 09-15-2021 11:20-0500 Diastolic blood pressure 83 mm[Hg] Cindy Patel MD Work Phone: [facility] 09-15-2021 11:20-0500 Heart rate 85 /min Cindy Patel MD Work Phone: [facility] 09-15-2021 11:20-0500 Respiratory rate 20 /min Cindy Patel MD Work Phone: [facility] 09-15-2021 11:20-0500 SaO2% (BldA) [Mass fraction] 98 % Cindy Patel MD Work Phone: [facility] 09-15-2021 11:20-0500 Systolic blood pressure 144 mm[Hg] Cindy Patel MD Work Phone: [facility] 09-15-2021 09:19-0500 Body height 177.8 cm Cindy Patel MD Work Phone: [facility] 09-15-2021 09:19-0500 Body mass index (BMI) [Ratio] 30.05 kg/m2 Cindy Patel MD Work Phone: [facility] 09-15-2021 09:19-0500 Body weight 94.98 kg Cindy Patel MD Work Phone: [facility] 10-27-2019 20:02-0500 Body temperature 97.2 [degF] Callie Nieves DO Work Phone: [facility] Work Phone: 10-27-2019 20:02-0500 Diastolic blood pressure 77 mm[Hg] Callie Nugg-it Work Phone: [employer] Work Phone: 10-27-2019 20:02-0500 Heart rate 107 /min Callie Nugg-it Work Phone: [employer] Work Phone: 10-27-2019 20:02-0500 Respiratory rate 16 /min Callie Nugg-it Work Phone: [employer] Work Phone: 10-27-2019 20:02-0500 SaO2% (BldA) [Mass fraction] 96 % Callie Nugg-it Work Phone: [employer] Work Phone: 10-27-2019 20:02-0500 Systolic blood pressure 112 mm[Hg] Callie Nugg-it Work Phone: [employer] Work Phone: 10-27-2019 14:10-0500 Body mass index (BMI) [Ratio] 27.08 kg/m2 Callie Nugg-it Work Phone: [employer] Work Phone: 10-27-2019 14:10-0500 Body weight 85.6 kg Callie Nugg-it Work Phone: [employer] Work Phone: 10-19-2019 12:45-0500 Body height 177.8 cm Callie Nugg-it Work Phone: [employer] Work Phone: Encounters Encounter Date Encounter Type Care Provider Facility Start: 05-07-2025 End: 05-07-2025 Emergency department patient visit Keiry Solares MD Work Phone: [facility] Comment on above: Encounter for remova l of nasal packing (Primary Dx); Anticoagulated; Dry gangrene (CMS/HCC) (HCC) Start: 05-07-2025 ambulatory [facility] Facility:[facility] Start: 05-04-2025 End: 05-05-2025 Emergency department patient visit Bessie Belkis FLORES Work Phone: [facility] ED Comment on above: Epistaxis (Primary D x); Supratherapeutic INR Start: 05-04-2025 End: 05-04-2025 Subsequent hospital visit by physician Amanda Haddad APRN - VIDEO PRODUCTION ASSISTANT Work Phone: [facility] [place] Comment on above: Pressure injury of s acral region, stage 4 (HCC) (Primary Dx); 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); Gangrene of toe of left foot (HCC); Peripheral arterial disease (HCC) Start: 05-04-2025 End: 05-04-2025 ambulatory AMANDA HADDAD [facility] Start: 05-03-2025 ambulatory Jayesh ALBA Faci lity:[facility] Start: 04-30-2025 [facility] Start: 04-26-2025 [facility] Start: 04-25-2025 End: 04-25-2025 Telephone encounter Yasemin Lucas DOCUMENT CLERK - VIDEO PRODUCTION ASSISTANT Work Phone: [facility] [place] Comment on above: Appointment Start: 04-25-2025 ambulatory Jayesh Samuelsros OLS Faci lity:[facility] Start: 04-24-2025 [facility] Start: 04-23-2025 ambulatory Jayesh Katsaros OLS Faci lity:[facility] Start: 04-20-2025 ambulatory Peter Katsaros OLS Faci lity:[facility] Start: 04-19-2025 [facility] Facility[facility] Start: 04-18-2025 ambulatory Peter Katsaros OLS Faci lity:[facility] Start: 04-17-2025 End: 04-17-2025 Emergency department patient visit Keiry Solares MD Work Phone: [facility] ED Comment on above: Supratherapeutic INR (Primary Dx); Necrosis (HCC) Start: 04-17-[facility] Start: 04-16-20[facility] Start: 04-12-2025 End: 04-12-2025 Subsequent hospital visit by physician [facility] Exam Room [address] Comment on above: Hemoptysis Start: 04-12-2025 End: 04-12-2025 ambulatory [facility] Start: 04-11-2025 End: 04-11-2025 Telephone encounter Piedad Genao DPM Work Phone: [facility] Comment on above: Appointment Start: 04-09-2025 End: 04-09-2025 Emergency department patient visit LEILANI TRONCOSO [facility] ED Comment on above: ESRD on hemodialysis (CMS/HCC) (HCC) (Primary Dx); Contusion of dorsum of right hand Start: 04-09-2025 [facility] Start: 04-05-2025 End: 04-05-2025 Telephone encounter Sophia Forrester CNP Work Phone: [facility] [employer] [facility] Comment on above: Cancelled Appointmen t Start: 04-05-2025 End: 04-05-2025 Emergency department patient visit Dieter Villegas MD Work Phone: [facility] ED Comment on above: Tachycardia (Primary Dx); Dialysis patient (HCC) Start: 04-05-2025 [facility] Start: 04-02-2025 [facility] Start: 03-29-2025 [facility] Start: 03-26-2025 End: 03-28-2025 Telephone encounter Sophia Forrester CNP Work Phone: [facility] [employer] [facility] Comment on above: Appointment Start: 03-26-2025 ambulatory Jayesh Evelyne PARTH Faci lity:[facility] Start: 03-22-2025 ambulatory Kayley ALBA Facility:[facility] Start: 03-22-2025 Registered Referred Kayley ortiz MD [employer] 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) Start: 03-12-2025 ambulatory Jayesh Galan lity:[facility] Start: 03-12-2025 Registered Referred Jayesh Stubbs [employer] Start: 03-09-2025 ambulatory Jayesh ALBA Faci lity:[facility] Start: 03-09-2025 Registered Referred Jayesh Stubbs [employer] Start: 03-08-2025 End: 03-08-2025 Orders Only Christelle Eckert RN [facility] [place] Comment on above: Tracheostomy depende nce (HCC) (Primary Dx); Tracheostomy complication, unspecified complication type (HCC); Acute respiratory failure with hypoxia (HCC) [J96.01] Start: 03-08-2025 Registered Referred Kayley ortiz MD [employer] Start: 02-23-2025 End: 02-23-2025 Telephone encounter Elly Jett MD Work Phone: [facility] Comment on above: Appointment Start: 02-21-2025 End: 02-25-2025 Telephone encounter Hussain Quintana MD Work Phone: [facility]ious Disease - [place] Comment on above: Other Start: 02-20-2025 End: 03-05-2025 Evaluation and management of inpatient Palak Thurman DO Work Phone: [facility] Trauma Neuro Progressive Care Unit PCU 3W Start: 02-20-2025 End: 02-20-2025 ambulatory Kayley Melendrez MD [facility] Work Phone: Start: 02-20-2025 End: 02-20-2025 [facility] Start: 02-20-2025 Registered [facility] Start: 02-20-2025 End: 02-20-2025 ambulatory Kayley Rejianeudymaria teresasamson ALBA Facility:[facility] Start: 02-15-2025 End: 02-15-2025 ambulatory Kayley Melendrez MD [facility] Work Phone: Start: 02-15-2025 End: 02-15-2025 [facility]ed [facility] Start: 02-15-2025 Registered [facility] Start: 02-14-2025 End: 02-14-2025 Office outpatient visit 25 minutes [place] Shay SANTOS Work Phone: [facility] [place] Comment on above: Sacral osteomyelitis (CMS/HCC) (HCC) (Primary Dx); ESRD on hemodialysis (CMS/HCC) (HCC); Ischemic ulcer of toe of left foot, 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); Decubitus ulcer of sacral region, unstageable (HCC); terminal clerk (current) use of antibiotics Start: 02-14-2025 End: 02-15-2025 ambulatory [facility] Start: 02-13-2025 ambulatory Kayley lirianoa OLS Facility:[facility] Start: 02-13-2025 Registered [facility] Start: 02-12-2025 End: 02-12-2025 [facility] Start: 02-12-2025 End: 02-12-2025 Departed [facility] Start: 02-12-2025 Registered Referred Kayley ortiz MD -[facility] Start: 02-12-2025 End: 02-12-2025 ambulatory Kayley ALBA Facility:[facility] Start: 02-08-2025 End: 02-08-2025 ambulatory Kayley Melendrez MD -[facility] Start: 02-08-2025 End: 02-08-2025 Departed Referred Kayley Melendrez MD -[facility] Start: 02-08-2025 Registered Referred Kayley ortiz MD -[facility] Start: 02-07-2025 End: 02-08-2025 ambulatory Kayley ALBA [facility] Work Phone: Start: 02-07-2025 End: 02-07-2025 Departed Referred Jayesh Stubbs -[facility] Start: 02-07-2025 Registered Referred Jayesh Stubbs - [facility] Start: 02-07-2025 End: 02-07-2025 ambulatory Jayesh ALBA Facility:[facility] Start: 02-05-2025 End: 02-05-2025 ambulatory Kayley Melendrez MD [facility] Work Phone: Start: 02-05-2025 End: 02-05-2025 Departed Referred Kayley Melendrez MD -[facility] Start: 02-05-2025 End: 02-05-2025 ambulatory Kayley ALBA Facility:[facility] Start: 02-02-2025 End: 02-02-2025 Anticoagulant drug monitoring [...] 01-18-2025 ambulatory Jefferson Nathan MD Work Phone: [facility] Comment on above: Acute respiratory fa ilure with hypoxia (HCC) [J96.01] (Primary Dx); RSV (acute bronchiolitis due to respiratory syncytial virus); Tracheostomy dependence (HCC); Leg DVT (deep venous thromboembolism), acute, left (HCC); Pulmonary embolism, unspecified chronicity, unspecified pulmonary embolism type, unspecified whether acute cor pulmonale present (HCC); S/P AVR Start: 01-17-2025 End: 01-17-2025 ambulatory Jefferson Nathan MD Work Phone: [facility] Comment on above: RSV (acute bronchiol itis [...] (Primary Dx); ESRD on hemodialysis (CMS/HCC) (HCC); terminal clerk (current) use of antibiotics; Decubitus ulcer of sacral region, unstageable (HCC); Sacral osteomyelitis (CMS/HCC) (HCC) Start: 01-16-2025 End: 01-16-2025 ambulatory Jefferson Nathan MD Work Phone: [facility] Comment on above: RSV (acute bronchiol itis [...] 01-15-2025 ambulatory Jefferson Nathan MD Work Phone: [facility] Comment on above: RSV (acute bronchiol itis [...] 01-14-2025 ambulatory Hany Berrios MD Work Phone: [facility] Comment on above: Acute respiratory fa ilure with hypoxia (HCC) [J96.01] (Primary Dx); 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]; Pulmonary embolism, other, unspecified chronicity, unspecified whether acute cor pulmonale present (HCC) Start: 01-12-2025 End: 01-12-2025 ambulatory Mikala Day PA-C Work Phone: [facility] Infectious Dis Comment on above: Tracheostomy depende nce (HCC) (Primary Dx); Sacral osteomyelitis (CMS/HCC) (HCC); Leukocytosis, unspecified type; Decubitus ulcer of sacral region, unstageable (HCC); alf (current) use of antibiotics Acute respiratory fa ilure with hypoxia (HCC) [J96.01] (Primary Dx); 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]; Pulmonary embolism, other, unspecified chronicity, unspecified whether acute cor pulmonale present (HCC) Start: 01-11-2025 End: 01-11-2025 ambulatory Mikala Day PA-C Work Phone: [facility] Infect[facility] Dis Comment on above: [...] 01-10-2025 ambulatory Hany Berrios MD Work Phone: [facility] Comment on above: Acute respiratory fa ilure with hypoxia (HCC) [J96.01] (Primary Dx); 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]; Pulmonary embolism, other, unspecified chronicity, unspecified whether acute cor pulmonale present (HCC) Start: 01-09-2025 End: 01-09-2025 ambulatory Mikala Day PA-C Work Phone: [facility] Comment on above: [...] 01-08-2025 ambulatory Mikala Day PA-C Work Phone: [facility] Dis Comment on above: [...] Start: 01-05-2025 End: 01-05-2025 ambulatory Sydni Husain DOCUMENT CLERK - VIDEO PRODUCTION ASSISTANT Work Phone: [facility] [place] Comment on above: Pneumonia of both marleny ngs due to methicillin susceptible Staphylococcus aureus (MSSA), unspecified part of lung (HCC) (Primary Dx); Acute hypoxic respiratory failure (HCC); Tracheostomy dependence (HCC); ESRD on hemodialysis (CMS/HCC) (HCC); Sacral osteomyelitis (CMS/HCC) (HCC); Decubitus ulcer of sacral region, unstageable (HCC) Start: 01-05-2025 End: 01-05-2025 Patient encounter procedure Chandrika Allen DOCUMENT CLERK - [employer] Work Phone: [facility] [place] Comment on above: Acute respiratory fa ilure with hypoxia (HCC) [J96.01] (Primary Dx); 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]; LRTI (lower respiratory tract infection) [J22] Start: 01-04-2025 End: 01-04-2025 Admission to same day surgery center Sydni Husain APRN - VIDEO PRODUCTION ASSISTANT Work Phone: [facility] [place] Comment on above: Tracheostomy depende nce (HCC) (Primary Dx); Pneumonia of both lungs due to methicillin susceptible Staphylococcus aureus (MSSA), unspecified part of lung (HCC); Acute hypoxic respiratory failure (HCC); Peritonitis due to fungus (HCC); ESRD on hemodialysis (CMS/HCC) (HCC); Sacral osteomyelitis (CMS/HCC) (HCC); Leukocytosis, unspecified type; History of abdominal surgery Start: 01-04-2025 End: 01-04-2025 ambulatory Sydni Husain APRN - VIDEO PRODUCTION ASSISTANT Work Phone: [facility] [place] Start: 01-04-2025 End: 01-04-2025 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] (Primary Dx); Acute respiratory failure with hypoxia (HCC) [J96.01] Start: 01-03-2025 End: 01-03-2025 ambulatory Josephine Adrianna Shreya DOCUMENT CLERK - [employer] Work Phone: [facility] [place] Comment on above: Sacral osteomyelitis (CMS/HCC) (HCC) (Primary Dx); Decubitus ulcer of sacral region, unstageable (HCC); Pneumonia of both lungs due to methicillin susceptible Staphylococcus aureus (MSSA), unspecified part of lung (HCC); Leukocytosis, unspecified type; ESRD on hemodialysis (CMS/HCC) (HCC); S/P AVR Start: 01-03-2025 End: 01-03-2025 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] (Primary Dx); Acute respiratory failure with hypoxia (HCC) [J96.01] Start: 01-01-2025 End: 01-01-2025 ambulatory Ochoa Guido MD Work Phone: [facility] Cardiology [facility] [place] Comment on above: Persistent atrial fi brillation (HCC) (Primary Dx) Leukocytosis, unspec ified type (Primary Dx); Pneumonia of both lungs due to methicillin susceptible Staphylococcus aureus (MSSA), unspecified part of lung (HCC); Acute hypoxic respiratory failure (HCC); Tracheostomy dependence (HCC); Decubitus ulcer of sacral region, unstageable (HCC); ESRD on hemodialysis (CMS/HCC) (HCC); S/P AVR Start: 01-01-2025 End: 01-01-2025 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] (Primary Dx); Acute respiratory failure with hypoxia (HCC) [J96.01] Start: 12-30-2024 End: 12-30-2024 ambulatory Josephine Cash DOCUMENT CLERK - VIDEO PRODUCTION ASSISTANT Work Phone: [facility] Infectious Dis Comment on above: Leukocytosis, unspec ified type (Primary Dx); Acute hypoxic respiratory failure (HCC); Tracheostomy dependence (HCC); S/P AVR; ESRD on hemodialysis (CMS/HCC) (HCC); Decubitus ulcer of sacral region, unstageable (HCC) Start: 12-28-2024 End: 12-28-2024 ambulatory Mercedes Hinton DOCUMENT CLERK - VIDEO PRODUCTION ASSISTANT Work Phone: [facility]od[facility] [place] Start: 12-28-2024 End: 12-28-2024 Patient encounter procedure Mercedes Hinton DOCUMENT CLERK - [employer] ASSISTANT Work Phone: [facility]od[facility] [place] Comment on above: Acute respiratory fa ilure with hypoxia (HCC) [J96.01] (Primary Dx); 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]; Tracheostomy care (HCC) [Z43.0]; History of pulmonary embolus (PE) [Z86.711] Start: 12-27-2024 End: 12-27-2024 ambulatory Mercedes Hinton DOCUMENT CLERK - VIDEO PRODUCTION ASSISTANT Work Phone: [facility] Start: 12-27-2024 End: 12-27-2024 Patient encounter procedure Mercedes Hinton DOCUMENT CLERK - VIDEO PRODUCTION ASSISTANT Work Phone: [facility] Comment on above: Acute respiratory fa ilure with hypoxia (HCC) [J96.01] (Primary Dx); 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]; Tracheostomy care (HCC) [Z43.0]; History of pulmonary embolus (PE) [Z86.711] Start: 12-26-2024 End: 12-26-2024 ambulatory Mercedes Hinton DOCUMENT CLERK - VIDEO PRODUCTION ASSISTANT Work Phone: [facility]od[facility] Start: 12-26-2024 End: 12-26-2024 Patient encounter procedure Mercedes Hinton DOCUMENT CLERK - VIDEO PRODUCTION ASSISTANT Work Phone: [facility] Comment on above: Acute respiratory fa ilure with hypoxia (HCC) [J96.01] (Primary Dx); 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]; Tracheostomy care (HCC) [Z43.0]; History of pulmonary embolus (PE) [Z86.711] Start: 12-22-2024 End: 12-22-2024 ambulatory Chandrika Allen DOCUMENT CLERK - VIDEO PRODUCTION ASSISTANT Work Phone: [facility]od[facility] Start: 12-22-2024 End: 12-22-2024 Patient encounter procedure Chandrika Allen DOCUMENT CLERK - VIDEO PRODUCTION ASSISTANT Work Phone: [facility] Comment on above: 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] (Primary Dx); Acute respiratory failure with hypoxia (HCC) [J96.01]; LRTI (lower respiratory tract infection) [J22] Start: 12-21-2024 End: 12-21-2024 ambulatory Chandrika Allen DOCUMENT CLERK - VIDEO PRODUCTION ASSISTANT Work Phone: [facility]od[facility] Start: 12-21-2024 End: 12-21-2024 Patient encounter procedure Chandrika Allen DOCUMENT CLERK - VIDEO PRODUCTION ASSISTANT Work Phone: [facility] Comment on above: 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] (Primary Dx); Acute respiratory failure with hypoxia (HCC) [J96.01]; LRTI (lower respiratory tract infection) [J22] Start: 12-20-2024 End: 12-20-2024 ambulatory Chandrika HuongRomulo Allen DOCUMENT CLERK - VIDEO PRODUCTION ASSISTANT Work Phone: [facility] Start: 12-20-2024 End: 12-20-2024 Patient encounter procedure Chandrika Castillo Alejandro DOCUMENT CLERK - VIDEO PRODUCTION ASSISTANT Work Phone: [facility] Comment on above: 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] (Primary Dx); Acute respiratory failure with hypoxia (HCC) [J96.01]; LRTI (lower respiratory tract infection) [J22] Start: 12-19-2024 End: 12-19-2024 ambulatory Chandrika HuongRomulo Allen DOCUMENT CLERK - VIDEO PRODUCTION ASSISTANT Work Phone: [facility] Start: 12-19-2024 End: 12-19-2024 Patient encounter procedure Chandrika BorjaRomulo Allen DOCUMENT CLERK - VIDEO PRODUCTION ASSISTANT Work Phone: [facility] Comment on above: 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] (Primary Dx); Acute respiratory failure with hypoxia (HCC) [J96.01]; LRTI (lower respiratory tract infection) [J22] Start: 12-18-2024 End: 12-18-2024 Patient encounter procedure Chandrikaflako Allen DOCUMENT CLERK - VIDEO PRODUCTION ASSISTANT Work Phone: [facility] Comment on above: Acute respiratory fa ilure with hypoxia (HCC) [J96.01] (Primary Dx); 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]; LRTI (lower respiratory tract infection) [J22] Start: 12-18-2024 End: 12-18-2024 ambulatory Chandrika Allen APRN - VIDEO PRODUCTION ASSISTANT Work Phone: [facility] [place] Start: 12-15-2024 End: 12-15-2024 ambulatory Jefferson Nathan MD Work Phone: [facility] Start: 12-15-2024 End: 12-15-2024 Patient encounter procedure Jefferson Nathan MD Work Phone: [facility]od[facility] Comment on above: Acute respiratory fa ilure with hypoxia (HCC) (Primary Dx); Tracheostomy dependence (HCC); RSV (acute bronchiolitis due to respiratory syncytial virus); Leg DVT (deep venous thromboembolism), acute, left (HCC); Nonrheumatic aortic valve stenosis Start: 12-14-2024 End: 12-14-2024 ambulatory Jefferson Nathan MD Work Phone: [facility] Pulmonary community health Sleep Medicine [facility] Comment on above: Acute respiratory fa ilure with hypoxia (HCC) (Primary Dx); Tracheostomy dependence (HCC); RSV (acute bronchiolitis due to respiratory syncytial virus); ESRD on hemodialysis (CMS/HCC) (HCC); Pulmonary embolism, other, unspecified chronicity, unspecified whether acute cor pulmonale present (HCC); Nonrheumatic aortic valve stenosis Start: 12-13-2024 End: 12-13-2024 ambulatory Jefferson Nathan MD Work Phone: [facility] Pulmonary and Sleep Medicine [facility] Comment on above: Acute respiratory fa ilure with hypoxia (HCC) (Primary Dx); Tracheostomy dependence (HCC); RSV (acute bronchiolitis due to respiratory syncytial virus); Paroxysmal A-fib (CMS/HCC) (HCC); Nonrheumatic aortic valve stenosis Start: 12-12-2024 End: 12-12-2024 ambulatory Jefferson Nathan MD Work Phone: [facility] Pulmonary community health Sleep [facility] Comment on above: RSV (acute bronchiol itis due to respiratory syncytial virus) (Primary Dx); Tracheostomy dependence (HCC); Acute respiratory failure with hypoxia (HCC); Paroxysmal A-fib (CMS/HCC) (HCC); Peritonitis due to fungus (HCC) Start: 12-11-2024 End: 12-11-2024 ambulatory Jefferson Nathan MD Work Phone: [facility] Pulmonary and Sleep Medicine [facility] Comment on above: RSV (acute bronchiol itis [...] surgery center Sydni Forrester CNP Work Phone: [facility] [place] Comment on above: Acute respiratory fa ilure with hypoxia (HCC) (Primary Dx); Tracheostomy dependence (HCC); S/P AVR; Peritonitis due to fungus (HCC); ESRD on hemodialysis ([facility]/HCC) (HCC); 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 hospital care/day 25 minutes Vincent Meek MD Work Phone: [facility] [place] Comment on above: Acute respiratory fa ilure with hypoxia (HCC) (Primary Dx); Ventilator dependent (HCC); Tracheostomy dependence (HCC); Pulmonary embolism, other, unspecified chronicity, unspecified whether acute cor pulmonale present (HCC); S/P AVR; ESRD on hemodialysis ([facility]/HCC) (HCC) Start: 12-06-2024 End: 12-06-2024 Admission to same day surgery center Sydni Watson Rodrigue DOCUMENT CLERK - VIDEO PRODUCTION ASSISTANT Work Phone: [facility] [place] Comment on above: Acute respiratory fa ilure with hypoxia (HCC) (Primary Dx); Tracheostomy dependence (HCC); S/P AVR; Peritonitis due to fungus (HCC); ESRD on hemodialysis (CMS/HCC) (HCC); 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 hospital care/day 25 minutes Vincent Meek MD Work Phone: [facility] [place] Comment on above: Acute respiratory fa ilure with hypoxia (HCC) (Primary Dx); Ventilator dependent (HCC); Tracheostomy dependence (HCC); Pulmonary embolism, other, unspecified chronicity, unspecified whether acute cor pulmonale present (HCC); S/P AVR; ESRD on hemodialysis (CMS/HCC) (HCC) Start: 12-05-2024 End: 03-23-2025 [facility] hospital care/day 35 minutes Vincent Meek MD Work Phone: [facility] [place] Comment on above: Acute respiratory fa ilure with hypoxia (HCC) (Primary Dx); Tracheostomy dependence (HCC); Ventilator dependent (HCC); Pulmonary embolism, other, unspecified chronicity, unspecified whether acute cor pulmonale present (HCC); S/P AVR; ESRD on hemodialysis (CMS/HCC) (HCC) Start: 12-04-2024 End: 12-04-2024 Admission to same day surgery center Sydni Walter Husain DOCUMENT CLERK - VIDEO PRODUCTION ASSISTANT Work Phone: [facility] [place] Comment on above: Acute respiratory fa ilure with hypoxia (HCC) (Primary Dx); Tracheostomy dependence (HCC); S/P AVR; Peritonitis due to fungus (HCC); ESRD on hemodialysis (CMS/HCC) (HCC); Ischemic ulcer of toe of left foot, 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); History of abdominal surgery Start: 12-04-2024 End: 12-04-2024 ambulatory Sydni Husain APRN - VIDEO PRODUCTION ASSISTANT Work Phone: [facility] [place] Comment on above: Atypical atrial flut ter (HCC) (Primary Dx) Start: 12-01-2024 End: 12-01-2024 Admission to same day surgery center Sydni Husain APRN - VIDEO PRODUCTION ASSISTANT Work Phone: [facility] [place] Comment on above: Acute respiratory fa ilure with hypoxia (HCC) (Primary Dx); Tracheostomy dependence (HCC); S/P AVR; Peritonitis due to fungus (HCC); ESRD on hemodialysis (CMS/HCC) (HCC); Ischemic ulcer of toe of left foot, 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); Leg DVT (deep venous thromboembolism), acute, left (HCC); History of abdominal surgery Start: 12-01-2024 End: 12-01-2024 ambulatory Jefferson Nathan MD Work Phone: [facility] Comment on above: Atypical atrial flut ter (HCC) (Primary Dx) Start: 12-01-2024 End: 12-01-2024 Patient encounter procedure Jefferson Nathan MD Work Phone: [facility] Comment on above: Acute respiratory fa ilure with hypoxia (HCC) (Primary Dx); Tracheostomy dependence (HCC); Ventilator dependent (HCC); Pulmonary embolism, other, unspecified chronicity, unspecified whether acute cor pulmonale present (HCC); S/P AVR Start: 11-30-2024 End: 11-30-2024 Admission to same day surgery center Sydni Husain APRN - VIDEO PRODUCTION ASSISTANT Work Phone: [facility] Infectious Disease [facility] Comment on above: Acute respiratory fa ilure with hypoxia (HCC) (Primary Dx); Tracheostomy dependence (HCC); S/P AVR; Peritonitis due to fungus (HCC); ESRD on hemodialysis (CMS/HCC) (HCC); Ischemic ulcer of toe of left foot, 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); Leg DVT (deep venous thromboembolism), acute, left (HCC); History of abdominal surgery Start: 11-30-2024 End: 11-30-2024 ambulatory Sydni Forrester CNP Work Phone: [facility] Comment on [...] day surgery center Sydni Husain APRN - VIDEO PRODUCTION ASSISTANT Work Phone: [facility]ious [facility] Comment on above: Peritonitis due to f ungus (HCC) (Primary Dx); History of abdominal surgery; S/P AVR; Ischemic ulcer of toe of left foot, 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); Leg DVT (deep venous thromboembolism), acute, left (HCC); Anemia, unspecified type Start: 11-29-2024 End: 11-30-2024 ambulatory Jefferson Nathan MD Work Phone: [facility] Pulmonary and Sleep Medicine [facility] Comment on above: Acute respiratory fa ilure with hypoxia (HCC) (Primary Dx); Atrial flutter, unspecified type (HCC); Pulmonary embolism, other, unspecified chronicity, unspecified whether acute cor pulmonale present (HCC); Ventilator dependent (HCC); Tracheostomy dependent (HCC); S/P AVR; Chronic bronchitis, unspecified chronic bronchitis type (HCC); ESRD on hemodialysis (CMS/HCC) (HCC) Start: 11-28-2024 End: 11-29-2024 Telephone encounter Jefferson Nathan MD Work Phone: [facility] Pulmonary and Sleep Medicine [facility] Comment on above: Advice Only Start: 10-22-2024 End: 10-22-2024 ambulatory LUCIANO MONTEMAYOR [facility] Start: 10-21-2024 End: 10-25-2024 [facility] Start: 10-16-2024 End: 10-16-2024 Telephone encounter Enid Dumont DOCUMENT CLERK - VIDEO PRODUCTION ASSISTANT Work Phone: [facility] Gastroenterology [facility] [place] Comment on above: Care Coordination Start: 10-13-2024 End: 10-13-2024 Telephone encounter Lan Carpenter PA-C Work Phone: [facility] Start: 10-12-2024 End: 10-12-2024 Evaluation and management of inpatient Vincent Wilson MD Work Phone: [facility] Start: 10-03-2024 End: 10-03-2024 Emergency department patient visit LEILANI TRONCOSO [facility] Start: 10-03-2024 End: 10-03-2024 Subsequent hospital visit by physician [facility] Exam Room [address] [facility] [address] Comment on above: Arrived Start: 10-03-2024 End: 11-28-2024 Evaluation and management of inpatient LUCIANO [facility] Start: 08-28-2024 End: 08-28-2024 ambulatory DARYN LOOMIS [facility] Start: 08-28-2024 End: 08-28-2024 Office outpatient visit 25 minutes Jr Shah MD Work Phone: [facility] Cardiology [facility] Comment on above: Paroxysmal A-fib (CM S/HCC) (HCC) (Primary Dx); Nonrheumatic aortic valve stenosis; Tobacco abuse; Alcohol use disorder in remission Start: 05-10-2024 Chart abstracting Alan Barroso RN [facility] Comment on above: Dialysis status upda te Start: 04-12-2024 Telephone encounter Kidney Txp Coordinators Work Phone: Transplant Center Start: 02-12-2024 Telephone encounter Jr Shah MD Work Phone: [facility] Central Scheduling Comment on above: unable to contact pa tient unable to contact pa tient to schedule Start: 11-12-2023 End: 11-12-2023 Office outpatient visit 25 minutes Quiana Contreras DOCUMENT CLERK - VIDEO PRODUCTION ASSISTANT Work Phone: [facility] Cardiology Comment on above: Nonrheumatic aortic valve stenosis (Primary Dx); Paroxysmal A-fib (CMS/HCC) (HCC); Primary hypertension; Calcification of abdominal aorta (HCC); Tobacco abuse; ESRD on hemodialysis (CMS/HCC) (HCC) Start: 10-14-2023 Telephone encounter Sasha weeks DOCUMENT CLERK - VIDEO PRODUCTION ASSISTANT Work Phone: [facility] Cardiology Comment on above: Cancelled Appointmen t Start: 09-07-2023 Transcribe Orders FransiscoMarleny Snowden cortez DOCUMENT CLERK Work Phone: [facility] Central Scheduling Comment on above: Personal history of nicotine dependence (Primary Dx); Nicotine dependence, cigarettes, uncomplicated Start: 08-18-2023 Telephone encounter Quiana Elvis forman DOCUMENT CLERK - VIDEO PRODUCTION ASSISTANT Work Phone: [facility] Cardiology Start: 08-16-2023 End: 08-17-2023 Evaluation and management of inpatient Dioniciochandana Horne DO Work Phone: [facility] ED Comment on above: New onset a-fib (CMS /HCC) (HCC) (Primary Dx); Atrial fibrillation, persistent (HCC) Start: 05-01-2023 End: 05-01-2023 Emergency department patient visit Jese Frank MD Work Phone: [facility] ED Comment on above: Skin sore (Primary D x); ESRD (end stage renal disease) on dialysis (HCC) Start: 12-30-2021 Telephone encounter [facility]ovani [facility]ckee MD [facility] Comment on above: Procedure please advise Start: 12-29-2021 ambulatory Rudy Painter MD Work Phone: Ambulatory Surgery Start: 12-29-2021 Telephone encounter Cecilia galo PA-C Work Phone[facility] Comment on above: cecilia carlson Start: 12-25-2021 End: 12-25-2021 Patient encounter procedure Rudy Painter MD Work Phone: [facility] [place] Comment on above: Acute blood loss ane ruth (Primary Dx); Rectal bleeding Start: 09-15-2021 End: 09-15-2021 Subsequent hospital visit by physician Cindy Patel MD Work Phone: [facility] Cath & IR Lab Start: 10-17-2020 End: 10-17-2020 Subsequent hospital visit by physician Cindy Patel Work Phone: [facility] [place] [facility] Start: 03-13-2020 End: 03-13-2020 Subsequent hospital visit by physician Lab [place] [facility] LAB E[facility] Comment on above: Preoperative testing [Z01.818] Start: 10-19-2019 End: 10-27-2019 Evaluation and management of inpatient Callie Nieves DO Work Phone: [facility] 1E MED SURG Comment on above: Acute kidney injury (HCC) (Primary Dx); Uncontrolled hypertension; Normocytic anemia; Angioedema, initial encounter; Hyperkalemia; Metabolic acidosis; Rectal bleeding Procedures Date Procedure Procedure Detail Performing Clinician Start: 05-07-2025 Blood count complete automated Keiry Solares MD Work Phone: Start: 05-04-2025 Prothrombin time Bessie eBlkis DO Work Phone: Start: 05-04-2025 Control nasal hemorr phillip anterior simple Bessie Belkis DO Work Phone: Start: 05-04-2025 Debridement subcutan eous tissue 20 sq cm/< Amanda Haddad DOCUMENT CLERK - VIDEO PRODUCTION ASSISTANT Work Phone: Start: 04-17-2025 Comprehensive metabo lic panel Keiry Solares MD Work Phone: Start: 04-09-2025 Radex hand minimum 3 views BigDeal PA-C Work Phone: Start: 04-09-2025 Basic metabolic pane l calcium total BigDeal PA-C Work Phone: Start: 04-05-2025 Assay of troponin quantitative Barbara Mckeon PA-C Work Phone: Start: 04-05-2025 Radiologic exam ches t 2 views Barbara Taryn Mckeon PA-C Work Phone: Start: 04-05-2025 Basic metabolic pane l calcium total Barbara Taryn Mckeon PA-C Work Phone: Start: 04-05-2025 Ecg routine [...] Work Phone: Start: 03-20-2025 Comprehensive metabo lic vee Dawkins MD Work Phone: Start: 03-20-2025 Hepatitis [...] Start: 02-26-2025 Assay of troponin quantitative Rudolph Rioscki DO Work Phone: Start: 02-26-2025 Assay of troponin quantitative Rudolph J Chasitynikicki DO Work Phone: Start: 02-25-2025 Prothrombin time [...] vancomycin Elly Jett MD Work Phone: Start: 05-29-2025 Bacteria identified in Blood by Culture Hussain [...] MD Work Phone: Start: 02-21-2025 Antibody screen [facility] Comment on above: Performed By: #### L [id number] ####Asp Net Programmer: DOMENICA JARA ([phone])[facility] BLOOD [facility] ([address] Start: 02-21-2025 C-reactive protein Karena Jett MD Work Phone: Start: 02-21-2025 Comprehensive metabo lic panel Bettye Pierre MD Work Phone: Start: 02-20-2025 Ct angiography chest w/contrast/noncontrast Memarsha You Cuca DO Work Phone: Start: 02-20-2025 Basic metabolic pane l calcium total Mejjessika You Cuca DO Work Phone: Start: 02-14-2025 Follow-up [...] 01-26-2025 Hepatitis b surf ant ibody hbsab eWllington Nicole MD Work Phone: Start: 01-26-2025 Iaad ia hepatitis b surface antigen Wellington Nicole MD Work Phone: Start: 01-26-2025 Thromboplastin time partial plasma/whole blood Noman Owens MD Work Phone: Start: 01-26-2025 Compatibility each u nit electronic Sangeetamk Reyes DO Start: 01-26-2025 End: 01-26-2025 TRANSFUSE [...] Start: 01-25-2025 Compatibility each u nit electronic Sangeetamk Reyes DO Start: 01-25-2025 End: 01-25-2025 TRANSFUSE RED BLOOD CELLS Sangeetalino olguin DO Start: 01-25-2025 Basic metabolic pane [...] total Chantell Cookida DO Work Phone: Start: 01-22-2025 Glucose quantitative [...] Start: 01-21-2025 Blood count complete automated Crystal CecilRomulo Mark DOCUMENT CLERK - VIDEO PRODUCTION ASSISTANT Work Phone: Start: 01-21-2025 Glucose quantitative blood [...] c ntrst mtrl w/wo cntrst img Japheth Eitamajonobe Okelias DO Work Phone: Start: 01-20-2025 Blood count hematocrit Jesus Alberto Denson MD Work Phone: Start: 01-20-2025 Blood count hematocrit Jesus Alberto Denson MD Work Phone: Start: 01-20-2025 Blood typing serolog ic abo Jesus Alberto Denson MD Work Phone: Start: 01-20-2025 Basic metabolic pane l calcium total Steve Lassitre MD Work Phone: Start: 01-19-2025 Assay of [...] History of abd ominal surgery Sydni Husain DOCUMENT CLERK - VIDEO PRODUCTION ASSISTANT Work Phone: Start: 10-12-2024 Insj non-tunneled ce ntral venous cath age 5 yr/> Rudolph German [employer]IVET [employer]ER Start: 10-12-2024 NV AN CENTRAL LINE T RIPLE LUMEN Rudolph German [employer] Start: 10-12-2024 NV AN ELECTIVE ENDOTRACHEAL AIRWAY Rudolph German [employer]IVET [employer]ER Start: 10-12-2024 Us vasc access sits vsl patency ndl entry Rudolph German [employer]IVET [employer]ER Start: 10-12-2024 ANESTHESIA ARTERIAL LINE PLACEMENT Rudolph German [employer]IVET [employer]ER Start: 10-03-2024 Ct head/brain w/o contrast material [...] vaccination due to patient refusal Sasha Vesta DOCUMENT CLERK - VIDEO PRODUCTION ASSISTANT Work Phone: Start: 08-17-2023 Echo tthrc r-t 2d w/wom-mode compl spec&colr d Earlene Irving MD Work Phone: Start: 08-17-2023 Thyrotropin [Units/volume] in Serum or Plasma Lan Conradellington PA-C Work Phone: Start: 08-17-2023 Basic metabolic pane l calcium total Earlene Irving MD Work Phone: Start: 08-16-2023 End: 08-16-2023 Basic metabolic panel calcium total Sha [facility] Work Phone: Start: 08-16-2023 Radiologic exam ches t single view Buzztala N Roberta PA-[employer] Work Phone: Start: 08-16-2023 Ecg routine ecg w/le ast 12 lds i&r only Dangelo Horne DO Work Phone: Start: 10-17-2020 Special treatments a nd procedures Cindy Patel Work Phone: Start: 03-13-2020 Ecg routine ecg w/le ast 12 lds trcg only w/o i&r [place] Provider Start: 03-13-2020 BASIC METABOLIC PNL Tati farooq (Piece Worker Structural Metal Worker) Sharma Work Phone: Start: 03-13-2020 CBC Darya (A prn Structural Metal Worker) Sharma Work Phone: Start: 03-13-2020 MDRD GFR Darya (A prn Structural Metal Worker) Sharma Work Phone: Start: 03-13-2020 PROTHROMBIN TIME/PT Tati farooq (Piece Worker Structural Metal Worker) Zachary Work Phone: Start: 10-27-2019 Basic metabolic [...] Basic metabolic panel calcium total Delon Jessica DOCUMENT CLERK - VIDEO PRODUCTION ASSISTANT Work Phone: Start: 10-22-2019 GLOMERULAR BASEMENT MEMBRANE (GBM) ANTIBODY IGG Randolph Liz MD Work Phone: Start: 10-21-2019 Radiologic exam abdo men 1 view Brett Encarnacion MD Work Phone: Start: 10-21-2019 End: 10-21-2019 Dup-scan artl shayan abdl/pel/scrot&/rpr orgn com Brett Encarnacion MD Work Phone: Start: 10-21-2019 Basic metabolic pane l calcium total Delon Jessica DOCUMENT CLERK - VIDEO PRODUCTION ASSISTANT Work Phone: Start: 10-20-2019 Basic metabolic pane l calcium total Brett Encarnacion MD Work Phone: Start: 10-20-2019 TRANSFUSE RED BLOOD CELLS Delon Jessica DOCUMENT CLERK - VIDEO PRODUCTION ASSISTANT Work Phone: Start: 10-20-2019 TRANSFUSE RED BLOOD CELLS Delon Jessica DOCUMENT CLERK - VIDEO PRODUCTION ASSISTANT Work Phone: Start: 10-20-2019 Blood count hemoglobin Delon Jessica DOCUMENT CLERK - VIDEO PRODUCTION ASSISTANT Work Phone: Start: 10-20-2019 Basic metabolic pane l calcium total Delon Gutierrez Jessica DOCUMENT CLERK - VIDEO PRODUCTION ASSISTANT Work Phone: Start: 10-20-2019 RBC morphology findi ng Nom (Bld) Delon Gutierrez Jessica DOCUMENT CLERK - VIDEO PRODUCTION ASSISTANT Work Phone: Start: 10-19-2019 Basic metabolic pane [...] Phone: Comment on above: Test Performed by [facility], [address] [place], [place], [place] [address] Start: 10-19-2019 End: 10-19-2019 ADD ON LAB [...] History of abdom inal surgery Sydni Husain DOCUMENT CLERK - VIDEO PRODUCTION ASSISTANT Work Phone: H/O: surgery History of abdom inal surgery Sydni Husain DOCUMENT CLERK - VIDEO PRODUCTION ASSISTANT Work Phone: H/O: surgery History of abdom inal surgery Sydni Husain DOCUMENT CLERK - VIDEO PRODUCTION ASSISTANT Work Phone: H/O: surgery History of abdom inal surgery Sydni Husain DOCUMENT CLERK - VIDEO PRODUCTION ASSISTANT Work Phone: H/O: surgery History of abdom inal surgery Sydni Husain DOCUMENT CLERK - VIDEO PRODUCTION ASSISTANT Work Phone: H/O: surgery History of abdom inal surgery Sydni Husain DOCUMENT CLERK - VIDEO PRODUCTION ASSISTANT Work Phone: Vaccine refused by patient Missed vaccination due to patient refusal Palak Thurman DO Work Phone: Plan of Treatment Date Care Activity Detail Author Start: 2040 RSV Immunization for Adults (1 - 1-dose 75+ series) RSV Immunization for Adults (1 - 1-dose 75+ series) [address] [facility] Start: 2040 [facility] Start: 01-24-2035 Screening for malignant neoplasm of colon [facility] Start: 03-14-2030 Lipid panel Lipid Panel [facility] Start: 04-17-2026 Creatinine measurement Creatinine Level [facility] Start: 04-17-2026 Potassium measurement Potassium Level [facility] Start: 04-12-2026 Screening for malignant neoplasm of lung Lung Cancer Screening [facility] Start: 04-09-2026 Creatinine measurement Creatinine Level [facility] Start: 04-09-2026 Potassium measurement Potassium Level [facility] Start: 04-05-2026 Creatinine measurement Creatinine Level [facility] Start: 04-05-2026 Potassium measurement Potassium Level [facility] Start: 03-21-2026 Creatinine measurement Creatinine Level [facility] Start: 03-21-2026 Potassium measurement Potassium Level [facility] Start: 03-13-2026 Screening for malignant neoplasm of lung Lung Cancer Screening [facility] Start: 03-05-2026 Creatinine measurement [facility] Start: 03-05-2026 Potassium measurement [facility] Start: 02-23-2026 Creatinine measurement Creatinine Level [facility] Start: 02-23-2026 Echocardiography Echocardiogram [facility] Start: 02-23-2026 Potassium measurement Potassium Level [facility] Start: 02-23-2026 [facility] Start: 02-12-2026 Creatinine measurement Creatinine Level [facility] Start: 02-12-2026 Potassium measurement Potassium Level [facility] Start: 02-01-2026 Creatinine measurement [facility] Start: 02-01-2026 Potassium measurement [facility] Start: 01-16-2026 Creatinine measurement Creatinine Level [facility] Start: 01-16-2026 Potassium measurement Potassium Level [facility] Start: 01-15-2026 Creatinine measurement Creatinine Level [facility] Start: 01-15-2026 Potassium measurement Potassium Level [facility] Start: 01-12-2026 Creatinine measurement Creatinine Level [facility] Start: 01-12-2026 Potassium measurement Potassium Level [facility] Start: 01-08-2026 Creatinine measurement Creatinine Level [facility] Start: 01-08-2026 Potassium measurement Potassium Level [facility] Start: 01-05-2026 Potassium measurement Potassium Level [facility] Start: 01-01-2026 Creatinine measurement Creatinine Level [facility] Start: 01-01-2026 Potassium measurement Potassium Level [facility] Start: 12-30-2025 Creatinine measurement Creatinine Level [facility] Start: 12-30-2025 Potassium measurement Potassium Level [facility] Start: 12-25-2025 Creatinine measurement Creatinine Level [facility] Start: 12-25-2025 Potassium measurement Potassium Level [facility] Start: 12-22-2025 Creatinine measurement Creatinine Level [facility] Start: 12-22-2025 Potassium measurement Potassium Level [facility] Start: 12-18-2025 Creatinine measurement Creatinine Level [facility] Start: 12-18-2025 Potassium measurement Potassium Level [facility] Start: 12-15-2025 Creatinine measurement Creatinine Level [facility] Start: 12-15-2025 Potassium measurement Potassium Level [facility] Start: 12-11-2025 Creatinine measurement Creatinine Level [facility] Start: 12-11-2025 Potassium measurement Potassium Level [facility] Start: 12-04-2025 Creatinine measurement Creatinine Level [facility] Start: 12-04-2025 Potassium measurement Potassium Level [facility] Start: 12-01-2025 Creatinine measurement Creatinine Level [facility] Start: 12-01-2025 Potassium measurement Potassium Level [facility] Start: 11-30-2025 Creatinine measurement Creatinine Level [facility] Start: 11-30-2025 Potassium measurement Potassium Level [facility] Start: 11-29-2025 Creatinine measurement Creatinine Level [facility] Start: 11-29-2025 Potassium measurement Potassium Level [facility] Start: 11-24-2025 Echocardiography Echocardiogram [facility] Start: 11-24-2025 [facility] Start: 2025 RSV Immunization aged 60 or older (1 - 1-dose 60+ series) RSV Immunization aged 60 or older (1 - 1-dose 60+ series) [facility] Start: 11-03-2025 Creatinine measurement Creatinine Level [facility] Start: 11-03-2025 Potassium measurement Potassium Level [facility] Start: 11-02-2025 Echocardiography Echocardiogram [facility] Start: 10-11-2025 Screening for malignant neoplasm of lung [facility] Start: 05-28-2025 Influenza vaccination [facility] Start: 05-28-2025 [facility] Start: 05-14-2025 End: 05-14-2025 Patient encounter procedure 05/14/2025 9:30 AM EDT Office Visit [facility] [address] [place] [phone] Daryn Santacruz MD [address] [place] [address] [facility] Start: 05-11-2025 End: 05-11-2025 Patient encounter procedure 05/11/2025 8:30 AM EDT Appointment [facility] - [place] [address] [place] [address] Amanda Haddad, DOCUMENT CLERK - VIDEO PRODUCTION ASSISTANT [address] [place] [address] [facility] [place] Start: 05-07-2025 End: 05-07-2025 Patient encounter procedure 05/07/2025 10:50 AM EDT Office Visit [facility] Lung Nodule [facility] [address] [place] [address] Yasemin Lucas, DOCUMENT CLERK - VIDEO PRODUCTION ASSISTANT [address] [place] [address] [facility] Lung Nodule [facility] Start: 04-26-2025 End: 04-26-2025 Patient encounter procedure 04/26/2025 9:20 AM EDT Office Visit [facility] Lung Nodule [facility] [address] [place] [address] Yasemin Lucas, DOCUMENT CLERK - VIDEO PRODUCTION ASSISTANT [address] [place] [address] [facility] Lung Nodule [facility] Start: 04-12-2025 End: 04-12-2025 Patient encounter procedure [facility] Start: 04-05-2025 End: 04-05-2025 ambulatory [facility] Start: 04-05-2025 End: 04-05-2025 Patient encounter procedure 04/05/2025 1:00 PM EDT Office Visit [facility] [address] [place] [address] Sophia Lara, DOCUMENT CLERK - VIDEO PRODUCTION ASSISTANT [address] [place] [address] [facility] Start: 04-03-2025 End: 04-03-2025 ambulatory [facility] Start: 04-03-2025 End: 04-03-2025 Patient encounter procedure 04/03/2025 10:45 AM EDT Office Visit [facility] [address] [place] [address] Zoe Valadez, DOCUMENT CLERK - VIDEO PRODUCTION ASSISTANT [address] [facility] [address] [place] [address] [facility] Start: 03-26-2025 End: 02-23-2026 CT Chest WO contrast CT chest wo IV contrast Imaging Routine Hemoptysis Expected: 03/26/2025, Expires: 02/23/2026 [facility] Work Phone: Comment on above: Expected: 03/26/2025, Expires: Start: 02-15-2025 End: 02-15-2025 ambulatory [facility] Start: 02-15-2025 End: 02-15-2025 Patient encounter procedure [facility] Start: 02-14-2025 End: 02-14-2025 ambulatory [facility] Infectious Disease [facility] [place] Start: 02-14-2025 End: 02-14-2025 Patient encounter procedure [facility] Start: 12-25-2024 End: 12-25-2024 Patient encounter procedure 12/25/2024 10:00 AM EDT Office Visit [facility] [address] [place] [id number] Sophia Lara, DENIA - VIDEO PRODUCTION ASSISTANT [address] [place], [place] [id number] [facility] Start: 12-18-2024 End: 12-18-2024 Telemedicine consultation with patient 12/18/2024 1:00 PM EDT Telemedicine [facility] Cardiovascular Thoracic Surgery [facility] [place] [address] [place] [id number] Osiris Terrell, DOCUMENT CLERK - VIDEO PRODUCTION ASSISTANT [address] [place] [address] [facility] [place] Start: 10-09-2024 End: 10-09-2024 Patient encounter procedure 10/09/2024 3:00 PM EST Appointment [facility] Stress [address] [facility] [address] [place] [phone] Jr Shah MD [address] [facility] [address] [place], [place] [address] [facility] 1 [facility] Start: 09-27-2024 Medicare Advantage Annual Wellness Visit Medicare Advantage Annual Wellness Visit [facility] Start: 09-27-2024 [facility] Start: 09-13-2024 End: 09-13-2024 Patient encounter procedure 09/13/2024 3:00 PM EST Appointment [facility] [address] [facility] [address] [place] [address] Jr Shah MD [address] [facility] [address] [place], [place] [id number] [facility] 1 [facility] Start: 09-11-2024 End: 08-28-2026 US Heart Transthoracic Transthoracic echocardiogram (TTE) complete with contrast, bubble, strain, and 3D PRN CV Echocardiography Routine Nonrheumatic aortic valve stenosis Expected: 09/11/2024 (Approximate), Expires: 08/28/2026 [facility] Work Phone: Comment on above: Expected: 09/11/2024 (Approximate), Expi res: 08/28/2026 Start: 08-17-2024 Thyroid stimulating hormone measurement TSH Level [facility] Start: 05-28-2024 COVID-19 Vaccine ( season) COVID-19 Vaccine ( season) [facility] Start: 05-28-2024 Influenza vaccination [facility] Start: 05-28-2024 [facility] Start: 02-07-2024 End: 02-07-2024 Patient encounter procedure [facility] Start: 11-29-2023 End: 11-29-2023 Patient encounter procedure 11/29/2023 3:00 PM EST Appointment [facility] CT Imaging [address] [place] [phone] Fransisco Pineda, DOCUMENT CLERK [address] [place] [address] [facility] [address] [facility] Start: 11-24-2023 End: 11-24-2023 Patient encounter procedure 11/24/2023 1:30 PM EST Office Visit [facility] Dermatology [address] [facility] [address] [place] [phone] Madhuri De La Rosa MD [address] [facility] [place] [address] [facility] Dermatology Start: 09-27-2023 Behavioral Health Screening Behavioral Health Screening [facility] Start: 09-27-2023 Medicare Advantage Annual Wellness Visit Medicare Advantage Annual Wellness Visit [facility] Start: 09-07-2023 End: 09-07-2024 CT Chest for screening WO contrast CT lung screening low dose Imaging Routine Nicotine dependence, cigarettes, uncomplicated Personal history of nicotine dependence Expected: 09/07/2023, Expires: 09/07/2024 [facility] Work Phone: Comment on above: Expected: 09/07/2023, Expires: Start: 05-28-2023 COVID-19 Vaccine ( season) COVID-19 Vaccine ( season) [facility] Start: 05-28-2023 Influenza vaccination Influenza Vaccine (#1) [facility] Start: 05-10-2023 DIABETES SCREEN DIABETES SCREEN [facility] Start: 05-10-2023 Diabetes Screening Diabetes Screening [facility] Start: 03-13-2023 DIABETES SCREEN DIABETES SCREEN [facility] Start: 05-28-2022 Influenza vaccination [facility] Ended[facility] Start: 10-22-2021 End: 10-22-2021 Patient encounter procedure 10/22/2021 Office Visit Dermatology Madhuri De La Rosa MD [address] [facility], [address] [place], [place] [id number] [facility] Start: 05-28-2021 Influenza vaccination [facility] Start: 05-20-2021 Hepatitis B Vaccines (1 of 1 - Risk Dialysis 4-dose series) Hepatitis B Vaccines (1 of 1 - Risk Dialysis 4-dose series) [facility] Start: 05-20-2021 [facility] Start: 05-10-2021 HEMOGLOBIN/HEMATOCRIT HEMOGLOBIN/HEMATOCRIT [facility] Start: 05-10-2021 SERUM CREATININE SERUM CREATININE [facility] Start: 12-08-2020 Annual Wellness Visit (AWV) Annual Wellness Visit (AWV) [facility] Start: 2020 PROSTATE CANCER SCREENING DISCUSSION PROSTATE CANCER SCREENING DISCUSSION [facility] Start: 2020 Prostate specific antigen measurement Prostate Cancer Screening Discussion [facility] Start: 11-12-2020 End: 11-12-2020 Office Visit 11/12/2020 Office Visit Dermatology Madhuri De La Rosa MD [address] [facility] [place] [id number] [facility] Start: 10-19-2020 Screening for malignant neoplasm of colon [facility] Start: 05-28-2020 Influenza vaccination [facility] Start: 05-28-2019 Influenza vaccination Flu vaccine (#1) [facility] Work Phone: Start: 2015 Screening for malignant neoplasm of colon Colon cancer screen colonoscopy [facility] Start: 2015 Shingles Vaccine (1 of 2) Shingles Vaccine (1 of 2) [facility] Start: 2015 SHINGRIX VACCINE (1 of 2) SHINGRIX VACCINE (1 of 2) [facility] Start: 2015 Tuberculosis screening COLORECTAL CANCER SCREENING,SEE MODIFIER [facility] Start: 2015 Zoster Vaccines (1 of 2) Zoster Vaccines (1 of 2) [facility] Start: 2015 [facility] Start: 2010 COLOGUARD (FIT-DNA) COLOGUARD (FIT-DNA) [facility] Start: 2010 Colonoscopy COLONOSCOPY [facility] Start: 2010 COLORECTAL CANCER SCREENING COLORECTAL CANCER SCREENING [facility] Start: [address] COLONOGRAPHY [facility] Start: 2010 FECAL OCCULT BLOOD FECAL OCCULT BLOOD [facility] Start: 2010 Screening for malignant neoplasm of colon [facility] Start: 2010 SIGMOIDOSCOPY SIGMOIDOSCOPY [facility] Start: 2005 Diabetes screen Diabetes screen [employer] Start: 2005 Lipid panel Lipid screen [facility] Start: 2000 Diabetes screen Diabetes screen [facility] Start: 2000 Lipid panel Lipid Screening [facility] Start: 2000 LIPID SCREEN LIPID SCREEN [facility] Start: 1984 DTaP/Tdap/Td vaccine (1 - Tdap) DTaP/Tdap/Td vaccine (1 - Tdap) [facility] Start: 1984 DTaP/Tdap/Td Vaccines (1 - Tdap) DTaP/Tdap/Td Vaccines (1 - Tdap) [facility] Start: 1984 Pneumococcal Vaccine: 50+ Years (1 of 2 - PCV) Pneumococcal Vaccine: 50+ Years (1 of 2 - PCV) [facility] Start: 1984 Urine microalbumin profile [facility] Start: 1984 [facility] Start: 1983 ANNUAL PCP TEAM CHRONIC DISEASE VISIT ANNUAL PCP TEAM CHRONIC DISEASE VISIT [facility] Start: 1983 Anxiety Screening Anxiety Screening [facility] Start: 1983 Depression Screening Depression Screening [facility] Start: 1983 Diabetes mellitus screening [facility] Start: 1983 HEPATITIS C SCREENING HEPATITIS C SCREENING [facility] Start: 1983 HIV SCREENING HIV SCREENING [facility] Start: 1983 HIV screening HIV Screening [facility] Start: 1977 Adult depression screening assessment DEPRESSION SCREENING [facility] Start: 1977 [facility] Start: 1971 Pneumococcal 0-64 years Vaccine (1 of 1 - PPSV23) Pneumococcal 0-64 years Vaccine (1 of 1 - PPSV23) [employer] Start: 1971 Pneumococcal 0-64 years Vaccine (1 of 2 - PPSV23) Pneumococcal 0-64 years Vaccine (1 of 2 - PPSV23) [facility] Start: 1971 Pneumococcal vaccination Pneumococcal Vaccine (1 of 2 - PCV) [facility] Start: 1971 Pneumococcal Vaccine: Pediatrics (0 to 5 Years) and At-Risk Patients (6 to 64 Years) (1 - PCV) Pneumococcal Vaccine: Pediatrics (0 to 5 Years) and At-Risk Patients (6 to 64 Years) (1 - PCV) [facility] Start: 1971 Pneumococcal Vaccine: Pediatrics (0 to 5 Years) and At-Risk Patients (6 to 64 Years) (1 of 2 - PCV) Pneumococcal Vaccine: Pediatrics (0 to 5 Years) and At-Risk Patients (6 to 64 Years) (1 of 2 - PCV) [facility] Start: 1970 COVID-19 Vaccine (1) COVID-19 Vaccine (1) [facility] Start: 1966 MMR Vaccines (1 of 1 - Standard series) MMR Vaccines (1 of 1 - Standard series) [facility] Start: 1966 [facility] Start: 05-17-1966 COVID-19 Vaccine (#1) COVID-19 Vaccine (#1) [facility] Start: 05-17-1966 Examination of skin Derm Melanoma Skin Check [facility] Start: 1965 Lipid panel [facility] Start: 1965 Medicare Advantage Annual Wellness Visit (AWV) Medicare Advantage Annual Wellness Visit (AWV) [facility] Start: 1965 Screening for malignant neoplasm of colon [facility] Basic metabolic 2000 panel - Serum or Plasma Basic Metabolic Panel Lab Routine Daily until discontinued starting 10/23/2019, 5 completed [facility] Work Phone: Comment on above: Daily until discontinued starting 2019, 5 completed CBC W Auto Different ial panel - Blood CBC Auto Differential Lab Routine Daily until discontinued starting 10/23/2019, 5 completed [facility] Work Phone: Comment on above: Daily until discontinued starting 2019, 5 completed End: 12-25-2022 COLONOSCOPY DIAGNOSTIC COLONOSCOPY DIAGNOSTIC Endoscopy Routine Acute blood loss anemia Rectal bleeding 1 Occurrences starting 12/25/2021 until 12/25/2022 [facility] Work Phone: Comment on above: 1 Occurrences starting 12/25/2021 until 12/25/2022 End: 12-30-2022 COLONOSCOPY DIAGNOSTIC COLONOSCOPY DIAGNOSTIC Endoscopy Routine Other iron deficiency anemia Rectal bleeding 1 Occurrences starting 12/30/2021 until 12/30/2022 [facility] Work Phone: Comment on above: 1 Occurrences starting 12/30/2021 until 12/30/2022 End: 04-12-2025 CT Chest WO contrast [employer] Work Phone: Comment on above: Once for 1 Occurrences starting 04/12/20 until 04/12/2025 Dressing Order: Pugh lt rope; Daily; 4x4 gauze; Kerlex, Paper tape; Other (Betadine) [facility] Work Phone: Comment on above: Ordered: 05/04/2025 Electrocardiogram EKG BIC 2019 3:36 PM EDT [facility] End: 01-22-2025 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 [employer] Work Phone: End: 10-19-2019 Hemodialysis inpatient Hemodialysis inpatient Dialysis Routine One Time for 1 Occurrences starting 10/19/2019 until 10/19/2019 [employer] Work Phone: Comment on above: One Time for 1 Occurrences starting 09/28 until 10/19/2019 End: 10-21-2019 Hemodialysis inpatient Hemodialysis inpatient Dialysis Routine One Time for 1 Occurrences starting 10/21/2019 until 10/21/2019 [employer] Work Phone: Comment on above: One Time for 1 Occurrences starting 09/28 until 10/21/2019 End: 10-23-2019 Hemodialysis inpatient Hemodialysis inpatient Dialysis Routine One Time for 1 Occurrences starting 10/23/2019 until 10/23/2019 [employer] Work Phone: Comment on above: One Time for 1 Occurrences starting 09/28 until 10/23/2019 Hemodialysis inpatient Hemodialy sis inpatient Dialysis Routine Every MWF until discontinued starting 10/27/2019 [employer] Work Phone: Comment on above: Every MWF until discontinued starting End: 01-26-2025 Hemoglobin [Mass/volume] in Blood [facility] Work Phone: End: 02-21-2025 Legionella and Streptococcus Urine Antigen [facility] Work Phone: Magnesium [Mass/volu me] in Serum or Plasma MAGNESIUM Lab Routine Daily until discontinued starting 10/23/2019, 5 completed [facility] Work Phone: Comment on above: Daily until discontinued starting 2019, 5 completed End: 01-22-2025 Peripheral blood smear [facility] End: 01-22-2025 Peripheral Blood Smear [facility] Peripheral blood smear [facility] Peripheral Blood Smear [facility] Phosphate [Mass/volu me] in Serum or Plasma Phosphorus Lab Routine Daily until discontinued starting 10/23/2019, 5 completed [facility] Work Phone: Comment on above: Daily until discontinued starting 2019, 5 completed End: 09-15-2021 Special treatments and procedures [facility] Work Phone: Comment on above: Once for 1 Occurrences starting 09/15/20 until 09/15/2021 End: 10-26-2019 Surgical Pathology Surgical Pathology Lab STAT Once for 1 Occurrences starting 10/26/2019 until 10/26/2019 [facility] Work Phone: Comment on above: Once for 1 Occurrences starting 10/26/19 until 10/26/2019 Surgical Pathology Surgical Path ology Lab STAT 10/26/2019 10:00 AM EST [facility] Work Phone: End: 02-21-2025 Urine Hold Cup [facility] [place] [facility] Immunizations Immunization Date Immunization Notes Care Provider [facility] 05-20-2020 hepatitis B vaccine, unspecified formulation Jese Frank MD Work Phone: [facility] 01-19-2020 hepatitis B vaccine, unspecified formulation Jese Frank MD Work Phone: [facility] 12-19-2019 hepatitis B vaccine, unspecified formulation Jese Frank MD Work Phone: [facility] 11-15-2019 hepatitis B vaccine, unspecified formulation Jese Frank MD Work Phone: [facility] Payers Date Payer Category Payer Medicare [id number] 2025 Self-pay 2023 Medicare HMO [id number] 2023 Medicare [id number] 2022 Medicaid HMO [id number] [id number] 2022 Medicaid [id number] 2020 Medicaid [id number]. 1.13.680.2.7.3.6 [id number] 2020 Medicare [id number] [id number] 2020 Medicare [id number]. 1.13.680.2.7.3.6 [id number] 2020 Unknown [id number] [id number] 2020 Medicaid MEDICAID [facility] MEDICAID [id number] 2020-Present Medicaid [id number] 2019 Medicare MEDICARE MEDICAR E A AND B [id number] 2019-Present [place] Medicare [id number] [id number] Unknown [id number] 2.16.840.1.739060.3.579.2.462 Unknown [id number] 2.16.840.1.336551.3.579.2.462 Unknown [id number] 2.16.840.1.345170.3.579.2.462 Unknown [id number] 2.16.840.1.084207.3.579.2.462 Unknown [id number] 2.16.840.1.941310.3.579.2.462 Unknown [id number] 2.16.840.1.691387.3.579.2.462 Unknown [id number] 2.840.1.721992.3.579.2.462 Unknown [id number] 2.840.1.252606.3.579.2.462 Unknown [id number] 2.840.1.734884.3.579.2.462 Unknown [id number] 2.840.1.015971.3.579.2.462 Unknown [id number] 2.840.1.719779.3.579.2.462 Unknown [id number] 2.840.1.866452.3.579.2.462 Unknown [id number] 2.840.1.587058.3.579.2.462 Unknown [id number] 2.840.1.494114.3.579.2.462 Unknown [id number] 2.840.1.746407.3.579.2.462 Unknown [id number] 2.840.1.541488.3.579.2.462 Unknown [id number] 2.840.1.326751.3.579.2.462 Unknown [id number] 2.840.1.448388.3.579.2.462 Unknown [id number] 2.840.1.650997.3.579.2.462 Unknown [id number] 2.840.1.947882.3.579.2.462 Unknown [id number] 2.840.1.515076.3.579.2.462 Unknown [id number] 2.16.840.1.915058.3.579.2.462 Unknown [id number] 2.16.840.1.209801.3.579.2.462 Unknown [id number] 2.16.840.1.673452.3.579.2.462 Social History Date Type Detail Facility Start: 1993 End: 03-15-2025 Tobacco smoking status MDIS Current every day smoker [facility] Start: 1993 History of tobacco use Cigarette Smoker [facility] Work Phone: Start: 03-13-2020 End: 03-13-2025 Cigarettes smoked current (pack per day) - Reported [facility] Work Phone: Start: 03-13-2020 End: 03-15-2025 Tobacco use and exposure Never used [facility] Start: 03-13-2020 End: 08-16-2023 Alcohol intake Current drinker of alcohol (finding) [facility] Work Phone: Start: 1965 Sex Assigned At Not on file [facility] Work Phone: Start: 12-15-2021 End: 05-01-2023 Exposure to SARS-CoV-2 (event) Not sure [facility] Start: 10-19-2019 Alcohol Comment on weekends [facility] Work Phone: Start: 12-25-2021 End: 05-04-2025 Alcohol intake Ex-drinker (finding) [facility] Start: 1965 Sex Assigned At Male [facility] Start: 05-01-2023 End: 03-13-2025 Alcohol Use Disorder Identification Test - Consumption [AUDIT-C] [facility] How often to you hav e a drink containing alcohol? Never [facility] How many standard dr inks containing alcohol do you have on a typical day? Patient does not drink [facility] Start: 11-15-2020 Gender identity Identifies as male gender (finding) [facility] Start: 08-10-2020 Sexual orientation Heterosexual (finding) [facility] Start: 04-27-2022 Sex Male (finding) [facility] History of tobacco use Passive smoker [facility] Start: 10-13-2024 Tobacco Comment Started at 28, 3 PPD, tapered down to 1 PPD in 2020 after quitting drinking. 10/27/24 [facility] Tobacco smoking stat us MDIS Unknown if ever smoked [facility] Work Phone: Start: 02-20-2025 Tobacco smoking status NHIS Ex-smoker [facility] Start: 1993 History of tobacco use Current smoker [facility] How often do you nee d to have someone help you when you read instructions, pamphlets, or other written material from your doctor or pharmacy [SILS] Sometimes [facility] Has the [employer], [employer], or water [employer] threatened to shut off services in your home in past 12Mo No [facility] Do you feel stress - tense, restless, nervous, or anxious, or unable to sleep at night because your mind is troubled all the time - these days [OSQ] To some extent [facility] (I/We) worried wheth er (my/our) food would run out before (I/we) got money to buy more. Never true [facility] Medical Equipment Procedure Code Equipment Code Equipment Origin al Text Equipment Identifier Dates [id number] Start: 10-12-2024 [id number][facility] Start: 10-09-2024 [id number][facility] Start: 10-14-2024 [id number][facility] Start: 10-14-2024 [id number][facility] Start: 10-14-2024 [id number] Start: 10-14-2024 [id number] Start: 10-14-2024 [id number][facility] Start: 10-14-2024 [id number] Start: 10-14-2024 [id number] Start: 11-03-2024 [id number][facility] Start: 01-30-2025 Functional Status Date Assessment Result Facility 05-07-2025 Total score [AUDIT-C] 0 05/07/20 4:56 PM EDT Kelly Romero RN [facility] 03-13-2025 Total score [AUDIT-C] 0 03/13/20 8:25 AM EDKaro Brewer RN [facility] Clinical Notes 10-24-2019 to 05-07-2025 Kelly Romero RN - 05/07/2025 6:35 PM Tashi Romero, SWEETIE - 05/07/2025 6:35 PM Jeanne Solares MD - 05/07/2025 4:46 PM EDVickey Romero, SWEETIE - 05/07/2025 4:46 PM EDVickey Romero RN - 05/07/2025 4:46 PM EDT Note Date & Type Note Facility 05-07-2025 Emergency department Note Patients foot wrapped per request. Discharge paperwork given to social services designee. [facility] 05-07-2025 Emergency department Note Patients foot wrapped per request. Discharge paperwork given to social services designee. Emergency Department Encounter Pt Name: Jun Snyder Birthdate 1965 Date of evaluation: 05/07/2025 Provider: Keiry Solares MD CHIEF COMPLAINT Chief Complaint Patient presents with Foreign Body in Nose BALLOON REMOVAL RIGHT NOSTRIL HISTORY OF PRESENT ILLNESS HPI Jun Snyder is a 59 y.o. male with history that includes ESRD on HD, last dialyzed this morning, hypertension, paroxysmal A-fib on warfarin, presents to the emergency department for nasal packing removal. He was seen in the ED on 05/04/2025, reports that he had bilateral nasal packing placed for epistaxis. According to the ED note, his INR was also supratherapeutic and he was given oral vitamin K. He was to have his INR rechecked the following day and was advised to come back to the ED for nasal packing removal in 48 hours. He states that the left nasal packing fell out on its own after his ED visit, and with it came a blood clot. He has had no further epistaxis. Has been feeling fine otherwise. He is accompanied by his social services designee who reports that he has a chronic left foot problem and has been advised to have the toes amputated which the patient has refused. He sees alyssa Hutton Weekly, next appointment is on Gopi. Nursing Notes were reviewed. Medical History[1] REVIEW OF SYSTEMS Several elements of the ROS reviewed and otherwise acutely negative except as in the HPI. PHYSICAL EXAM ED Triage Vitals [05/07/25 1653] Temp Heart Rate Resp BP 36.7 C (98.1 F) 79 16 110/69 SpO2 Temp Source Heart Rate Source Patient Position 97 % Oral Monitor Sitting BP Location FiO2 (%) Right arm -- Physical Exam Patient laying in bed no acute distress. Right sided Rhino Rocket in place. No active bleeding. AV fistula left arm. There is a dressing of the left foot which I removed revealing mummified toes, mild purulent discharge just proximal to this. No significant skin erythema, no lymphangitic spread. 2+ DP pulse in the foot. EMERGENCY DEPARTMENT COURSE and DIFFERENTIAL DIAGNOSIS/MDM: Nasal packing was removed without problem. There was no blood noted upon its removal, making me suspect that this was a left-sided epistaxis originally. We will recheck his CBC as I am interested to see if he has had any worsening of his chronic anemia, also to check a WBC count given the chronic left foot infection. We will also recheck his INR in the process. With respect to his left foot, social services designee reports that the purulent discharge has been there chronically. He has no leukocytosis today. Only minimal drop in his hemoglobin. INR is therapeutic. We will therefore plan for discharge, follow-up with PCP and wound care. 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 Keiry Solares MD Emergency Medicine [1] Past Medical History: Diagnosis Date Acute renal failure (ARF) ([facility]) 10/19/2019 Anemia 12/30/2021 Calcification of abdominal aorta (HCC) 10/08/202309/[address] abd Diverticulosis 10/08/2023 ESRD on hemodialysis ([facility]) ([facility]) 10/26/2019 Hemodialysis patient ([facility]) ([facility]) HTN (hypertension) 12/01/2022 Hypertension IgA nephropathy IgA nephropathy determined by biopsy of kidney 10/26/2019 Missed vaccination due to patient refusal 10/08/2023 Has a number of non-scientific based beliefs which interfere with his understanding and acceptance of the medical benefit of vaccination. Nonrheumatic aortic valve stenosis 10/08/2023 Paroxysmal A-fib ([facility]) ([facility]) 08/18/2023 Tobacco abuse 10/08/2023 Keiry Solares MD 05/07/25 1816 Patient is here for balloon removal right nostril. Patient is here with a social services designee. He is on 2 blood thinners. documented in this encounter [facility] 05-07-2025 Emergency department Triage note Patient is here for balloon removal right nostril. Patient is here with a social services designee. He is on 2 blood thinners. [facility] 05-07-2025 Physician Emergen cy department Note Emergency Department Encounter Pt Name: Jun Snyder Birthdate 1965 Date of evaluation: 05/07/2025 Provider: Keiry Solraes MD CHIEF COMPLAINT Chief Complaint Patient presents with Foreign Body in Nose BALLOON REMOVAL RIGHT NOSTRIL HISTORY OF PRESENT ILLNESS HPI Jun Snyder is a 59 y.o. male with history that includes ESRD on HD, last dialyzed this morning, hypertension, paroxysmal A-fib on warfarin, presents to the emergency department for nasal packing removal. He was seen in the ED on 05/04/2025, reports that he had bilateral nasal packing placed for epistaxis. According to the ED note, his INR was also supratherapeutic and he was given oral vitamin K. He was to have his INR rechecked the following day and was advised to come back to the ED for nasal packing removal in 48 hours. He states that the left nasal packing fell out on its own after his ED visit, and with it came a blood clot. He has had no further epistaxis. Has been feeling fine otherwise. He is accompanied by his social services designee who reports that he has a chronic left foot problem and has been advised to have the toes amputated which the patient has refused. He sees wound Weekly, next appointment is on Wednesday. Nursing Notes were reviewed. Medical History[1] REVIEW OF SYSTEMS Several elements of the ROS reviewed and otherwise acutely negative except as in the HPI. PHYSICAL EXAM ED Triage Vitals [05/07/25 1653] Temp Heart Rate Resp BP 36.7 C (98.1 F) 79 16 110/69 SpO2 Temp Source Heart Rate Source Patient Position 97 % Oral Monitor Sitting BP Location FiO2 (%) Right arm -- Physical Exam Patient laying in bed no acute distress. Right sided Rhino Rocket in place. No active bleeding. AV fistula left arm. There is a dressing of the left foot which I removed revealing mummified toes, mild purulent discharge just proximal to this. No significant skin erythema, no lymphangitic spread. 2+ DP pulse in the foot. EMERGENCY DEPARTMENT COURSE and DIFFERENTIAL DIAGNOSIS/MDM: Nasal packing was removed without problem. There was no blood noted upon its removal, making me suspect that this was a left-sided epistaxis originally. We will recheck his CBC as I am interested to see if he has had any worsening of his chronic anemia, also to check a WBC count given the chronic left foot infection. We will also recheck his INR in the process. With respect to his left foot, social services designee reports that the purulent discharge has been there chronically. He has no leukocytosis today. Only minimal drop in his hemoglobin. INR is therapeutic. We will therefore plan for discharge, follow-up with PCP and wound care. ED course: Diagnoses as of 05/07/251815 Encounter for removal of nasal packing Anticoagulated Dry gangrene (CMS/HCC) (HCC) Chronic conditions and social determinants of health affecting care: ESRD, anemia DISPOSITION/PLAN Discharge 05/07/2025 06:13:52 PM PATIENT REFERRED TO: Leil[address] [facility] [phone] Schedule an appointment as soon as possible for a visit in 2 days DISCHARGE MEDICATIONS: New Prescriptions SODIUM CHLORIDE (OCEAN) 0.65 % NASAL SPRAY Administer 1 spray into each nostril 2 times daily for 14 days. Keiry Solares MD Emergency Medicine [1] Past Medical History: Diagnosis Date Acute renal failure (ARF) ([facility]) 10/19/2019 Anemia 12/30/2021 Calcification of abdominal aorta ([facility]) 10/08/202309/[address] abd Diverticulosis 10/08/2023 ESRD on hemodialysis ([facility]) ([facility]) 10/26/2019 Hemodialysis patient ([facility]) ([facility]) HTN (hypertension) 12/01/2022 Hypertension IgA nephropathy IgA nephropathy determined by biopsy of kidney 10/26/2019 Missed vaccination due to patient refusal 10/08/2023 Has a number of non-scientific based beliefs which interfere with his understanding and acceptance of the medical benefit of vaccination. Nonrheumatic aortic valve stenosis 10/08/2023 Paroxysmal A-fib ([facility]) ([facility]) 08/18/2023 Tobacco abuse 10/08/2023 Keiry Solares MD 05/07/251815 [facility] 05-05-2025 Hospital Discharg e instructions Bessie Tamayo DO - 05/05/2025 12:22 AM EDT Return in 48 hours for removal of the nasal packing. Have your INR rechecked tomorrow. We are giving vitamin K today to reverse the effects of your supratherapeutic INR which is at a level of 5 today. documented in this encounter [facility] 05-04-2025 Emergency department Note Associated Order(s): Epistaxis Management EMERGENCY DEPARTMENT ENCOUNTER Pt Name: Jair Snyder Birthdate 1965 Date of evaluation: 05/04/2025 ED Provider: Bessie Tamayo DO CHIEF COMPLAINT Chief Complaint Patient presents with Epistaxis (Nose Bleed) HISTORY OF PRESENT ILLNESS (Location/Symptom, Timing/Onset, Context/Setting, Quality, Duration, Modifying Factors, Severity) Note limiting factors. I wore appropriate PPE for the entirety of this encounter. HPI 59-year-old male presents emergency department today with right sided epistaxis. With supratherapeutic on his Coumadin so was held today by staff at his facility. Has been having persistent bleeding for the last 2 hours however. Nursing Notes were reviewed. Limitations to history: None Outside historians: None REVIEW OF SYSTEMS Review of Systems HENT: Positive for nosebleeds. Pertinent positives and negatives as per HPI. [...] Vitals and nursing note reviewed. Constitutional: Appearance: Normal appearance. HENT: Head: Normocephalic and atraumatic. Cardiovascular: Rate and Rhythm: Normal rate. Pulmonary: Effort: Pulmonary effort is normal. Musculoskeletal: General: Normal range of motion. Skin: General: Skin is warm and dry. Neurological: General: No focal deficit present. Mental Status: He is alert. Mental status is at baseline. Psychiatric: Mood and Affect: Mood normal. Behavior: Behavior normal. DIAGNOSTIC RESULTS Procedures/EKG: RADIOLOGY (Per Emergency Physician): Interpretation per the Radiologist below, if available at the time of this note: No orders to display ED BEDSIDE ULTRASOUND: Performed by ED Physician - none LABS: Labs Reviewed CBC WITH AUTO DIFFERENTIAL - Abnormal Result Value Auto WBC 5.8 RBC 3.46 (*) Hemoglobin 9.9 (*) Hematocrit 30.9 (*) MCV 89.3 MCH 28.6 MCHC 32.0 RDW 16.2 (*) Platelets 284 MPV 9.2 nRBC 0.0 Neutrophils Relative 66.3 Lymphocytes Relative 15.6 Monocytes Relative 12.8 Eosinophils Relative 3.6 Basophils Relative 1.2 Immature Grans % 0.5 Neutrophils Absolute 3.8 Lymphocytes Absolute 0.9 (*) Monocytes Absolute 0.7 Eosinophils Absolute 0.2 Basophils Absolute 0.1 Immature Grans Absolute 0.0 PROTHROMBIN TIME - Abnormal PROTHROMBIN TIME 49.2 (*) INR 5.0 (*) All other labs were within normal range or not returned as of this dictation. EMERGENCY DEPARTMENT COURSE and DIFFERENTIAL DIAGNOSIS/MDM: Vitals: Vitals: 05/04/25 2217 BP: 118/63 BP Location: Right arm Patient Position: Sitting Pulse: 92 Resp: 20 Temp: 36.9 C (98.5 F) TempSrc: Temporal SpO2: 100% Weight: 66.7 kg (147 lb) Height: 1.778 m (5' 10") ED Course as of 05/05/253 WedMay 04, 20252231 59-year-old male presents emergency department today with right sided epistaxis. With supratherapeutic on his Coumadin so was held today by staff at his facility. Has been having persistent bleeding for the last 2 hours however. Used pressure without success and topical Afrin. Nebulized TXA and soaked Rhino Rocket and TXA with success. Will recheck in 10 minutes to ensure no persistent bleeding around the packing. [BM] 2358 Hemoglobin at 9.9 which is stable and at baseline per patient. [BM] ED Course User Index [BM] Bessie Tamayo DO Diagnoses as of 05/05/25 0023 Epistaxis Supratherapeutic INR Had to place bilateral nasal packing. Now bleeding has significantly slowed in the left nare and stopped in the right nare. No longer having any drainage down the back of throat. INR level is supratherapeutic at 5 will give oral vitamin K 5 mg for reversal and have INR rechecked outpatient tomorrow. Told return in 48 hours for nasal packing removal. Epistaxis Management Performed by: Bessie Tamayo DO Authorized by: Bessie Tamayo DO Consent: Consent obtained: Verbal Consent given by: Patient Risks, benefits, and alternatives were discussed: yes Risks discussed: Bleeding Alternatives discussed: No treatment [place] protocol: Procedure explained and questions answered to patient or proxy's satisfaction: yes Patient identity confirmed: Verbally with patient Anesthesia: Anesthesia method: None Procedure details: Treatment site: R anterior and L anterior Treatment method: Anterior pack Treatment complexity: Limited Treatment episode: initial Post-procedure details: Procedure completion: Tolerated Medications phytonadione (Vitamin K) tablet 5 mg (has no administration in time range) oxymetazoline (Afrin) 0.05 % nasal spray 2 spray (2 sprays Each Nostril Given 05/04/252231) tranexamic acid (Cyklokapron) injection 660 mg (660 mg Topical New Bag 05/04/252232) REVAL: CRITICAL CARE TIME FINAL IMPRESSION 1. Epistaxis 2. Supratherapeutic INR DISPOSITION Discharge 05/05/2025 12:21:34 AM PATIENT REFERRED TO: eLilani Troncoso [address] [facility] [phone] In 1 day [facility] ED [address] [facility] [address] As needed, If symptoms worsen DISCHARGE MEDICATIONS: New Prescriptions No medications on file (Comment: Please note this report has been produced using speech recognition software and may contain errors related to that system including errors in grammar, punctuation, and spelling, as well as words and phrases that may be inappropriate. If there are any questions or concerns please feel free to contact the dictating provider for clarification.) Bessie Tamayo DO (electronically signed) Emergency Medicine Provider [1] Past Medical History: Diagnosis Date Acute renal failure (ARF) ([facility]) 10/19/2019 Anemia 12/30/2021 Calcification of abdominal aorta (HCC) 10/08/202309/[address] abd Diverticulosis 10/08/2023 ESRD on hemodialysis ([facility]) ([facility]) 10/26/2019 Hemodialysis patient ([facility]) ([facility]) HTN (hypertension) 12/01/2022 Hypertension IgA nephropathy IgA nephropathy determined by biopsy of kidney 10/26/2019 Missed vaccination due to patient refusal 10/08/2023 Has a number of non-scientific based beliefs which interfere with his understanding and acceptance of the medical benefit of vaccination. Nonrheumatic aortic valve stenosis 10/08/2023 Paroxysmal A-fib ([facility]) ([facility]) 08/18/2023 Tobacco abuse 10/08/2023 [2] Past [...] packs/day: 1.00 Average packs/day: 1.4 packs/day for 31.5 years (45.3 ttl pk-yrs) Types: Cigarettes Start date: 1993 [...] 0 min Stress: Stress Concern Present (02/21/2025) [employer] - Occupational Stress Questionnaire Feeling of Stress : To some extent Social Connections: Unknown (02/21/2025) Social Connection and Isolation Panel [NHANES] Frequency of Communication with Friends and Family: More than three times a week Frequency of Social Gatherings with Friends and Family: Patient declined Attends Baptism Services: Patient declined Active Member of Clubs [...] 0 Homeless in the Last Year: No Bessie Tamayo DO 05/05/25 0023 Patient arrived via squad to room 6. Patient complains of nose bleed that started approx 3 hrs ago. Patient unsure which side is bleeding. Patient denies any pain. documented in this encounter [facility] 05-04-2025 Emergency department Triage note Patient arrived via squad to room 6. Patient complains of nose bleed that started approx 3 hrs ago. Patient unsure which side is bleeding. Patient denies any pain. [facility] 05-04-2025 Physician Emergen cy department Note Associated Order(s): Epistaxis Management EMERGENCY DEPARTMENT ENCOUNTER Pt Name: Jair Snyder Birthdate 1965 Date of evaluation: 05/04/2025 ED Provider: Bessie Tamayo DO CHIEF COMPLAINT Chief Complaint Patient presents with Epistaxis (Nose Bleed) HISTORY OF PRESENT ILLNESS (Location/Symptom, Timing/Onset, Context/Setting, Quality, Duration, Modifying Factors, Severity) Note limiting factors. I wore appropriate PPE for the entirety of this encounter. HPI 59-year-old male presents emergency department today with right sided epistaxis. With supratherapeutic on his Coumadin so was held today by staff at his facility. Has been having persistent bleeding for the last 2 hours however. Nursing Notes were reviewed. Limitations to history: None Outside historians: None REVIEW OF SYSTEMS Review of Systems HENT: Positive for nosebleeds. Pertinent positives and negatives as per HPI. [...] Vitals and nursing note reviewed. Constitutional: Appearance: Normal appearance. HENT: Head: Normocephalic and atraumatic. Cardiovascular: Rate and Rhythm: Normal rate. Pulmonary: Effort: Pulmonary effort is normal. Musculoskeletal: General: Normal range of motion. Skin: General: Skin is warm and dry. Neurological: General: No focal deficit present. Mental Status: He is alert. Mental status is at baseline. Psychiatric: Mood and Affect: Mood normal. Behavior: Behavior normal. DIAGNOSTIC RESULTS Procedures/EKG: RADIOLOGY (Per Emergency Physician): Interpretation per the Radiologist below, if available at the time of this note: No orders to display ED BEDSIDE ULTRASOUND: Performed by ED Physician - none LABS: Labs Reviewed CBC WITH AUTO DIFFERENTIAL - Abnormal Result Value Auto WBC 5.8 RBC 3.46 (*) Hemoglobin 9.9 (*) Hematocrit 30.9 (*) MCV 89.3 MCH 28.6 MCHC 32.0 RDW 16.2 (*) Platelets 284 MPV 9.2 nRBC 0.0 Neutrophils Relative 66.3 Lymphocytes Relative 15.6 Monocytes Relative 12.8 Eosinophils Relative 3.6 Basophils Relative 1.2 Immature Grans % 0.5 Neutrophils Absolute 3.8 Lymphocytes Absolute 0.9 (*) Monocytes Absolute 0.7 Eosinophils Absolute 0.2 Basophils Absolute 0.1 Immature Grans Absolute 0.0 PROTHROMBIN TIME - Abnormal PROTHROMBIN TIME 49.2 (*) INR 5.0 (*) All other labs were within normal range or not returned as of this dictation. EMERGENCY DEPARTMENT COURSE and DIFFERENTIAL DIAGNOSIS/MDM: Vitals: Vitals: 05/04/25 2217 BP: 118/63 BP Location: Right arm Patient Position: Sitting Pulse: 92 Resp: 20 Temp: 36.9 C (98.5 F) TempSrc: Temporal SpO2: 100% Weight: 66.7 kg (147 lb) Height: 1.778 m (5' 10") ED Course as of 05/05/253 WedMay 04, [id number] 59-year-old male presents emergency department today with right sided epistaxis. With supratherapeutic on his Coumadin so was held today by staff at his facility. Has been having persistent bleeding for the last 2 hours however. Used pressure without success and topical Afrin. Nebulized TXA and soaked Rhino Rocket and TXA with success. Will recheck in 10 minutes to ensure no persistent bleeding around the packing. [BM] 2359 Hemoglobin at 9.9 which is stable and at baseline per patient. [BM] ED Course User Index [BM] Bessie Tamayo DO Diagnoses as of 05/05/25 0023 Epistaxis Supratherapeutic INR Had to place bilateral nasal packing. Now bleeding has significantly slowed in the left nare and stopped in the right nare. No longer having any drainage down the back of throat. INR level is supratherapeutic at 5 will give oral vitamin K 5 mg for reversal and have INR rechecked outpatient tomorrow. Told return in 48 hours for nasal packing removal. Epistaxis Management Performed by: Bessie Tamayo DO Authorized by: Bessie Tamayo DO Consent: Consent obtained: Verbal Consent given by: Patient Risks, benefits, and alternatives were discussed: yes Risks discussed: Bleeding Alternatives discussed: No treatment [place] protocol: Procedure explained and questions answered to patient or proxy's satisfaction: yes Patient identity confirmed: Verbally with patient Anesthesia: Anesthesia method: None Procedure details: Treatment site: R anterior and L anterior Treatment method: Anterior pack Treatment complexity: Limited Treatment episode: initial Post-procedure details: Procedure completion: Tolerated Medications phytonadione (Vitamin K) tablet 5 mg (has no administration in time range) oxymetazoline (Afrin) 0.05 % nasal spray 2 spray (2 sprays Each Nostril Given 05/04/252231) tranexamic acid (Cyklokapron) injection 660 mg (660 mg Topical New Bag 05/04/252232) REVAL: CRITICAL CARE TIME FINAL IMPRESSION 1. Epistaxis 2. Supratherapeutic INR DISPOSITION Discharge 05/05/2025 12:21:34 AM PATIENT REFERRED TO: Leilani Troncoso [address] [place] [address] In 1 day [facility] ED [address] [facility] [address] As needed, If symptoms worsen DISCHARGE MEDICATIONS: New Prescriptions No medications on file (Comment: Please note this report has been produced using speech recognition software and may contain errors related to that system including errors in grammar, punctuation, and spelling, as well as words and phrases that may be inappropriate. If there are any questions or concerns please feel free to contact the dictating provider for clarification.) Bessie Tamayo DO (electronically signed) Emergency Medicine Provider [1] Past Medical History: Diagnosis Date Acute renal failure (ARF) ([facility]) 10/19/2019 Anemia 12/30/2021 Calcification of abdominal aorta ([facility]) 10/08/202309/[address] abd Diverticulosis 10/08/2023 ESRD on hemodialysis ([facility]) ([facility]) 10/26/2019 Hemodialysis patient ([facility]) ([facility]) HTN (hypertension) 12/01/2022 Hypertension IgA nephropathy IgA nephropathy determined by biopsy of kidney 10/26/2019 Missed vaccination due to patient refusal 10/08/2023 Has a number of non-scientific based beliefs which interfere with his understanding and acceptance of the medical benefit of vaccination. Nonrheumatic aortic valve stenosis 10/08/2023 Paroxysmal A-fib ([facility]) ([facility]) 08/18/2023 Tobacco abuse 10/08/2023 [2] Past [...] PROCEDURES IR FISTULAGRAM 08/07/2022 IR FISTULAGRAM 08/07/2022 [facility] IR IMAGING TONSILLECTOMY (HISTORICAL) [3] Family History Problem Relation Name Age of Onset No Known Problems Mother No Known Problems Father [4] Social History Socioeconomic History Marital status: Tobacco Use Smoking status: Every Day Current packs/day: 1.00 Average packs/day: 1.4 packs/day for 31.5 years (45.3 ttl pk-yrs) Types: Cigarettes Start date: 1993 [...] 0 min Stress: Stress Concern Present (02/21/2025) [employer] - Occupational Stress Questionnaire Feeling of Stress : To some extent Social Connections: Unknown (02/21/2025) Social Connection and Isolation Panel [NHANES] Frequency of Communication with Friends and Family: More than three times a week Frequency of Social Gatherings with Friends and Family: Patient declined Attends Baptism Services: Patient declined Active Member of Clubs [...] 0 Homeless in the Last Year: No Bessie Tamayo DO 05/05/25 0023 [facility] 05-04-2025 History of Harjinder dodd illness Narrative Associated Order(s): Debridement Post-Procedure Diagnose(s): Peripheral arterial disease (HCC); 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 [facility] Consult, Progress, and Procedure Note Jun Snyder AGE: 59 y.o. GENDER: male : 1965 EPISODE DATE: Subjective: Patient presents for evaluation of wound HISTORY of PRESENT ILLNESS HPI Jun Snyder is a 59 y.o. male who presents today for wound/ulcer evaluation. History of Wound Context: patient here with social services designee from [facility]. Patient with hx of sacral pressure injury as well as gangrene of left toes 1-4. He states that he has seen Vascular surgeon for dialysis fistula Rt AC. Per patient Vascular surgery at [facility] has not seen toes. PVR from 03/15/25 reviewed. Referral placed to Vascular surgery today. Patient would like to go home as he does not like ECF. Advised social services designee present with him today that he would not services and equipment in place before he would be [facility]. Sacral wound is improved and healing. No SOI. Gangrenous toes with no SOI. Most of toes with dry gangrene however tissue at base of toes with wet gangrene. Interval History: Patient presents today for follow up on wound/ulcer's progression. The patient is currently not on antibiotics. Current dressing care includes see RN notes Contributing Factors: dialysis, PAD, immobility, gangrene PAST MEDICAL HISTORY Medical History[1] PAST SURGICAL HISTORY Surgical History[2] FAMILY HISTORY Family History[3] SOCIAL HISTORY Social History[4] ALLERGIES Allergies[5] MEDICATIONS Medications Ordered Prior to Encounter[6] REVIEW OF SYSTEMS Patient denies CP,SOB, tolerating diet NO F/C otherwise negative ROS accept noted in HPI Objective: BP 104/67 Pulse 95 Temp 36.9 C (98.4 F) Resp 20 Wt Readings from Last 3 Encounters: 04/17/25 152 lb (68.9 kg) 04/09/25 150 lb (68 kg) 04/05/25 147 lb (66.7 kg) PHYSICAL EXAM Visit Vitals BP 104/67 Pulse 95 Temp 36.9 C (98.4 F) Resp 20 GEN: NAD Alert appears stated age PULM: Breathing without difficulty CV: Stable GI: Soft ND NT tolerating diet EXT: see wound notes Wound Assessment: Wound/Incision 05/04/25 Arterial Ulcer Toe - great Left;Circumferential (Active) Wound Image 05/04/25908 Site Assessment Black 05/04/25908 Mahnaz-Wound Assessment Fragile;Moist ;Painful 05/04/25908 Wound Length (cm) 3 cm 05/04/25908 Wound Width (cm) 9 cm 05/04/25908 Wound Surface Area (cm^2) 21.21 cm^2 05/04/25908 Wound Depth (cm) 0.2 cm 05/04/25908 Wound Volume (cm^3) 2.827 cm^3 05/04/25908 Drainage Description Unable to assess 05/04/25908 Odor Mild 05/04/25908 Drainage Amount Unable to assess 05/04/25908 Treatments Cleansed 05/04/25908 Wound/Incision 05/04/25 Arterial Ulcer Toe- second Left;Circumferential (Active) Wound Image 05/04/25912 Site Assessment Black 05/04/25912 Mahnaz-Wound Assessment Painful;Moist 05/04/25912 Wound Length (cm) 3.9 cm 05/04/25912 Wound Width (cm) 4 cm 05/04/25912 Wound Surface Area (cm^2) 12.25 cm^2 05/04/25912 Wound Depth (cm) 0.1 cm 05/04/25912 Wound Volume (cm^3) 0.817 cm^3 05/04/25912 Drainage Description Unable to assess 05/04/25912 Odor Mild 05/04/25912 Drainage Amount Unable to assess 05/04/25912 Treatments Cleansed 05/04/25912 Wound/Incision 05/04/25 Arterial Ulcer Toe - third Left;Circumferential (Active) Wound Image 05/04/25915 Site Assessment Black 05/04/25915 Mahnaz-Wound Assessment Moist ;Painful 08/08/25 0916 Wound Length (cm) 4 cm 05/04/25915 Wound Width (cm) 2.6 cm 05/04/25915 Wound Surface Area (cm^2) 8.17 cm^2 05/04/25915 Wound Depth (cm) 0.2 cm 05/04/25915 Wound Volume (cm^3) 1.089 cm^3 05/04/25915 Drainage Description Unable to assess 05/04/25915 Odor Mild 05/04/25915 Drainage Amount Unable to assess 05/04/25915 Treatments Cleansed 05/04/25915 Wound/Incision 05/04/25 Arterial Ulcer Toe - fourth Left;Circumferential (Active) Wound Image 05/04/25917 Site Assessment Black;Necrotic 05/04/25917 Mahnaz-Wound Assessment Moist ;Painful 05/04/25917 Wound Length (cm) 4.3 cm 05/04/25917 Wound Width (cm) 2.6 cm 05/04/25917 Wound Surface Area (cm^2) 8.78 cm^2 05/04/25917 Wound Depth (cm) 0.2 cm 05/04/25917 Wound Volume (cm^3) 1.171 cm^3 05/04/25917 Drainage Description Unable to assess 05/04/25917 Odor Mild 05/04/25917 Drainage Amount Unable to assess 05/04/25917 Treatments Cleansed 05/04/25917 Wound/Incision 05/04/25 Pressure Injury Coccyx Posterior (Active) Wound Image 05/04/25923 Site Assessment Granulation;Painful;Pale;Harold;Sl oughing 05/04/25923 Mahnaz-Wound Assessment Harold 05/04/25923 Wound Length (cm) 6.3 cm 05/04/25923 Wound Width (cm) 4.2 cm 05/04/25923 Wound Surface Area (cm^2) 20.78 cm^2 05/04/25923 Wound Depth (cm) 1.4 cm 05/04/25923 Wound Volume (cm^3) 19.396 cm^3 05/04/25923 Drainage Description Serosanguineous 05/04/25923 Odor None 05/04/25923 Drainage Amount Moderate 05/04/25923 Treatments Cleansed 08/08/25 0924 LABS Lab Results Component Value Date WBC 7.3 04/17/2025 HGB 9.6 (L) 04/17/2025 HCT 29.6 (L) 04/17/2025 MCV 90.2 04/17/2025 PLT 381 04/17/2025 Lab Results Component Value Date NA 136 04/17/2025 K 5.7 (H) 04/17/2025 CL 100 04/17/2025 CO2 25 04/17/2025 PHOS 2.6 02/23/2025 BUN 48 (H) 04/17/2025 CREATININE 4.18 (H) 04/17/2025 Lab Results Component Value Date PROTIME >90.0 (H) 04/17/2025 INR >9.6 (HH) 04/17/2025 No results found for: PREALBUMIN No components found for: LABALBU Lab Results Component Value Date SEDRATE 51 (H) 01/02/2025 Assessment: Wound: see below Ulcer: Pressure ulcer, Stage 4 Procedure Note Indications: Based on my examination of this patient's wound(s)/ulcer(s) today, debridement is required to promote healing and evaluate the extent healing. Debridement Wound/Incision 05/04/25 Pressure Injury Coccyx Posterior Performed by: DENIA Salazar CNP Authorized by: DENIA Salazar CNP Consent Consent obtained? verbal Consent given by: patient Risks discussed? procedural risks discussed Time out called at 05/04/2025 10:40 AM Immediately prior to the procedure a time out was called and the performing provider verified the correct patient, procedure, equipment, clerical support specialist, and site/side marked as required. 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 DELIVERY DRIVER Debridement type: surgical Level of debridement: subcutaneous tissue Pain control: lidocaine 2% Pain control administration type: topical Pre-debridement measurements Length (cm): 6.3 Width (cm): 4.2 Depth (cm): 1.4 Surface Area (cm^2): 20.78 Post-debridement measurements Length (cm): 6.3 Width (cm): 4.2 Depth (cm): 1.4 Percent debrided: 50% Surface Area (cm^2): 20.78 Area Debrided (cm^2): 10.39 Volume (cm^3): 19.4 Tissue and other material debrided: subcutaneous tissue Devitalized tissue debrided: biofilm, exudate and slough Instrument(s) utilized: curette Bleeding: medium Hemostasis obtained with: silver nitrate and pressure Procedural pain (0-10): 0 Post-procedural pain: 0 Response to treatment: procedure was tolerated well Plan: Patient examined and evaluated Patient understands all that has been explained to her and wishes to proceed with current treatment. Patient understands all risks, benefits, procedures, mahnaz-operative management, and possible complications. All questions answered and no guarantees made or implied. Treatment: Orders Placed This Encounter Procedures Inpatient consult to Wound Prevention Standing Status: Standing Number of Occurrences: 1 Reason for Consult:: Kee score, Prevention Skin care precautions Standing Status: Standing Number of Occurrences: 1 -chart reviewed -nutrition support -f/up 1 week or sooner -recommend NPWT to sacral wound-change 3x/week and PRN -betadine, mesalt, dry dressing to toes - daily -roho chair cushion -continue gr 2 mattress for offloading -Q2hr/PRN turns -call if problems/concerns Written patient dismissal instructions given to patient and signed by patient or POA. [1] Past Medical History: Diagnosis Date Acute renal failure (ARF) ([facility]) 10/19/2019 Anemia 12/30/2021 Calcification of abdominal aorta ([facility]) 10/08/202309/[address] abd Diverticulosis 10/08/2023 ESRD on hemodialysis ([facility] ([facility]) 10/26/2019 Hemodialysis patient ([facility]) ([facility]) HTN (hypertension) 12/01/2022 Hypertension IgA nephropathy IgA nephropathy determined by biopsy of kidney 10/26/2019 Missed vaccination due to patient refusal 10/08/2023 Has a number of non-scientific based beliefs which interfere with his understanding and acceptance of the medical benefit of vaccination. Nonrheumatic aortic valve stenosis 10/08/2023 Paroxysmal A-fib ([facility]) ([facility]) 08/18/2023 Tobacco abuse 10/08/2023 [2] Past [...] packs/day: 1.00 Average packs/day: 1.4 packs/day for 31.5 years (45.3 ttl pk-yrs) Types: Cigarettes Start date: 1993 Passive exposure: Past Smokeless tobacco: Never Tobacco comments: Started at 28, 3 PPD, tapered down to 1 PPD in 2020 after quitting drinking. 10/27/24 Vaping Use Vaping status: Never Used Substance Use Topics Alcohol use: Not Currently Drug use: Never [5] Allergies Allergen Reactions Lisinopril Swelling and Angioedema [6] Current Outpatient Medications on File Prior to [...] Take as directed per After Visit Summary. No current facility-administered medications on file prior to encounter. Assessments Nursing Assessment/Reassessment Score (check box all that apply) General Physical Exam 20 [x] Comprehensive Assessment (history, ROS, Risk Assessments, wound hx, etc) 25 [x] Wound and skin Assessment/Reassessment Dermatologic / Skin Assessment (not related to wound area) 10 [x] Ostomy and/or Continence Assessment & Care Incontinence Assessment and Management 10 [] Ostomy Care Assessment and Management (repouching, etc) 20 [] Process Coordination of Care Simple Patient/Family Education for ongoing care 15 [x] Complex (extensive) Patient/Family Education for ongoing of care 20 [] Staff obtains Consent, Records, Test Results/Process Orders 10 [x] Staff telephones [facility], Nursing Homes/Clarify Orders 10 [] Routine Transfer to another Facility (non-emergent condition) 10 [] Routine Hospital Admission (non-emergent condition) 10 [] New Admissions/Insurance Auth/Ordering NPWT, skin substitute, etc. 15 [x] Emergency Hospital Admission (emergent condition) 20 [] Special Needs Pediatric / Minor Patient Management 10 [] Isolation Patient Management 10 [] Hearing/Language/Visual Special Needs 15 [] Assessment of Community Assistance (transportation, discharge planning) 15 [] Additional Assistance / Altered Mentation 15 [] Support Surface Assessment (bed, cushion, seat) 15 [x] Interventions Miscellaneous External Ear Exam 5 [] Patient Transfer (multiple staff/Pearl lift) 10 [] Simple Staple/Suture Removal (25 or less) 5 [] Complex Staple/Suture Removal (26 or more) 10 [] Hypo/Hyperglycemic Management 10 [] Ankle/Brachial Index (KIM) 15 [] Total Points - Use to Determine Level of Clinic Visit 95 Points Francis: Level 1 (1-35 Points) Level 2 (40-75 Points) Level 3 (80-115 Points) Level 4 (120-155 Points) Level 5 (160 or more Points) documented in this encounter [facility] 05-04-2025 History of Presen t illness Narrative Associated Order(s): Debridement Post-Procedure Diagnose(s): Peripheral arterial disease (HCC); 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 [facility] Consult, Progress, and Procedure Note Jun Snyder AGE: 59 y.o. GENDER: male : 1965 EPISODE DATE: Subjective: Patient presents for evaluation of wound HISTORY of PRESENT ILLNESS HPI Jun Snyder is a 59 y.o. male who presents today for wound/ulcer evaluation. History of Wound Context: patient here with social services designee from [facility]. Patient with hx of sacral pressure injury as well as gangrene of left toes 1-4. He states that he has seen Vascular surgeon for dialysis fistula Rt AC. Per patient Vascular surgery at [facility] has not seen toes. PVR from 03/15/25 reviewed. Referral placed to Vascular surgery today. Patient would like to go home as he does not like ECF. Advised social services designee present with him today that he would not services and equipment in place before he would be discharged from ECF. Sacral wound is improved and healing. No SOI. Gangrenous toes with no SOI. Most of toes with dry gangrene however tissue at base of toes with wet gangrene. Interval History: Patient presents today for follow up on wound/ulcer's progression. The patient is currently not on antibiotics. Current dressing care includes see RN notes Contributing Factors: dialysis, PAD, immobility, gangrene PAST MEDICAL HISTORY Medical History[1] PAST SURGICAL HISTORY Surgical History[2] FAMILY HISTORY Family History[3] SOCIAL HISTORY Social History[4] ALLERGIES Allergies[5] MEDICATIONS Medications Ordered Prior to Encounter[6] REVIEW OF SYSTEMS Patient denies CP,SOB, tolerating diet NO F/C otherwise negative ROS accept noted in HPI Objective: BP 104/67 Pulse 95 Temp 36.9 C (98.4 F) Resp 20 Wt Readings from Last 3 Encounters: 04/17/25 152 lb (68.9 kg) 04/09/25 150 lb (68 kg) 04/05/25 147 lb (66.7 kg) PHYSICAL EXAM Visit Vitals BP 104/67 Pulse 95 Temp 36.9 C (98.4 F) Resp 20 GEN: NAD Alert appears stated age PULM: Breathing without difficulty CV: Stable GI: Soft ND NT tolerating diet EXT: see wound notes Wound Assessment: Wound/Incision 05/04/25 Arterial Ulcer Toe - great Left;Circumferential (Active) Wound Image 05/04/25908 Site Assessment Black 05/04/25908 Mahnaz-Wound Assessment Fragile;Moist ;Painful 05/04/25908 Wound Length (cm) 3 cm 05/04/25908 Wound Width (cm) 9 cm 05/04/25908 Wound Surface Area (cm^2) 21.21 cm^2 05/04/25908 Wound Depth (cm) 0.2 cm 05/04/25908 Wound Volume (cm^3) 2.827 cm^3 05/04/25908 Drainage Description Unable to assess 05/04/25908 Odor Mild 05/04/25908 Drainage Amount Unable to assess 05/04/25908 Treatments Cleansed 05/04/25908 Wound/Incision 05/04/25 Arterial Ulcer Toe- second Left;Circumferential (Active) Wound Image 05/04/25912 Site Assessment Black 05/04/25912 Mahnaz-Wound Assessment Painful;Moist 05/04/25912 Wound Length (cm) 3.9 cm 05/04/25912 Wound Width (cm) 4 cm 05/04/25912 Wound Surface Area (cm^2) 12.25 cm^2 05/04/25912 Wound Depth (cm) 0.1 cm 05/04/25912 Wound Volume (cm^3) 0.817 cm^3 05/04/25912 Drainage Description Unable to assess 05/04/25912 Odor Mild 05/04/25912 Drainage Amount Unable to assess 05/04/25912 Treatments Cleansed 05/04/25912 Wound/Incision 05/04/25 Arterial Ulcer Toe - third Left;Circumferential (Active) Wound Image 05/04/25915 Site Assessment Black 05/04/25915 Mahnaz-Wound Assessment Moist ;Painful 05/04/25915 Wound Length (cm) 4 cm 05/04/25915 Wound Width (cm) 2.6 cm 05/04/25915 Wound Surface Area (cm^2) 8.17 cm^2 05/04/25915 Wound Depth (cm) 0.2 cm 05/04/25915 Wound Volume (cm^3) 1.089 cm^3 05/04/25915 Drainage Description Unable to assess 05/04/25915 Odor Mild 05/04/25915 Drainage Amount Unable to assess 05/04/25915 Treatments Cleansed 05/04/25915 Wound/Incision 05/04/25 Arterial Ulcer Toe - fourth Left;Circumferential (Active) Wound Image 05/04/25917 Site Assessment Black;Necrotic 05/04/25917 Mahnaz-Wound Assessment Moist ;Painful 05/04/25917 Wound Length (cm) 4.3 cm 05/04/25917 Wound Width (cm) 2.6 cm 05/04/25917 Wound Surface Area (cm^2) 8.78 cm^2 05/04/25917 Wound Depth (cm) 0.2 cm 05/04/25917 Wound Volume (cm^3) 1.171 cm^3 05/04/25917 Drainage Description Unable to assess 05/04/25917 Odor Mild 05/04/25917 Drainage Amount Unable to assess 05/04/25917 Treatments Cleansed 05/04/25917 Wound/Incision 05/04/25 Pressure Injury Coccyx Posterior (Active) Wound Image 05/04/25923 Site Assessment Granulation;Painful;Pale;Harold;Sl oughing 05/04/25923 Mahnaz-Wound Assessment Harold 05/04/25923 Wound Length (cm) 6.3 cm 05/04/25923 Wound Width (cm) 4.2 cm 05/04/25923 Wound Surface Area (cm^2) 20.78 cm^2 05/04/25923 Wound Depth (cm) 1.4 cm 05/04/25923 Wound Volume (cm^3) 19.396 cm^3 05/04/25923 Drainage Description Serosanguineous 05/04/25923 Odor None 05/04/25923 Drainage Amount Moderate 05/04/2524 Treatments Cleansed 05/04/25923 LABS Lab Results Component Value Date WBC 7.3 04/17/2025 HGB 9.6 (L) 04/17/2025 HCT 29.6 (L) 04/17/2025 MCV 90.2 04/17/2025 PLT 381 04/17/2025 Lab Results Component Value Date NA 136 04/17/2025 K 5.7 (H) 04/17/2025 CL 100 04/17/2025 CO2 25 04/17/2025 PHOS 2.6 02/23/2025 BUN 48 (H) 04/17/2025 CREATININE 4.18 (H) 04/17/2025 Lab Results Component Value Date PROTIME >90.0 (H) 04/17/2025 INR >9.6 (HH) 04/17/2025 No results found for: PREALBUMIN No components found for: LABALBU Lab Results Component Value Date SEDRATE 51 (H) 01/02/2025 Assessment: Wound: see below Ulcer: Pressure ulcer, Stage 4 Procedure Note Indications: Based on my examination of this patient's wound(s)/ulcer(s) today, debridement is required to promote healing and evaluate the extent healing. Debridement Wound/Incision 05/04/25 Pressure Injury Coccyx Posterior Performed by: DENIA Salazar CNP Authorized by: DENIA Salazar CNP Consent Consent obtained? verbal Consent given by: patient Risks discussed? procedural risks discussed Time out called at 05/04/2025 10:40 AM Immediately prior to the procedure a time out was called and the performing provider verified the correct patient, procedure, equipment, clerical support specialist, and site/side marked as required. 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 DELIVERY DRIVER Debridement type: surgical Level of debridement: subcutaneous tissue Pain control: lidocaine 2% Pain control administration type: topical Pre-debridement measurements Length (cm): 6.3 Width (cm): 4.2 Depth (cm): 1.4 Surface Area (cm^2): 20.78 Post-debridement measurements Length (cm): 6.3 Width (cm): 4.2 Depth (cm): 1.4 Percent debrided: 50% Surface Area (cm^2): 20.78 Area Debrided (cm^2): 10.39 Volume (cm^3): 19.4 Tissue and other material debrided: subcutaneous tissue Devitalized tissue debrided: biofilm, exudate and slough Instrument(s) utilized: curette Bleeding: medium Hemostasis obtained with: silver nitrate and pressure Procedural pain (0-10): 0 Post-procedural pain: 0 Response to treatment: procedure was tolerated well Plan: Patient examined and evaluated Patient understands all that has been explained to her and wishes to proceed with current treatment. Patient understands all risks, benefits, procedures, mahnaz-operative management, and possible complications. All questions answered and no guarantees made or implied. Treatment: Orders Placed This Encounter Procedures Inpatient consult to Wound Prevention Standing Status: Standing Number of Occurrences: 1 Reason for Consult:: Kee score, Prevention Skin care precautions Standing Status: Standing Number of Occurrences: 1 -chart reviewed -nutrition support -f/up 1 week or sooner -recommend NPWT to sacral wound-change 3x/week and PRN -betadine, mesalt, dry dressing to toes - daily -roho chair cushion -continue gr 2 mattress for offloading -Q2hr/PRN turns -call if problems/concerns Written patient dismissal instructions given to patient and signed by patient or POA. [1] Past Medical History: Diagnosis Date Acute renal failure (ARF) ([facility]) 10/19/2019 Anemia 12/30/2021 Calcification of abdominal aorta ([facility]) 10/08/202309/[address] abd Diverticulosis 10/08/2023 ESRD on hemodialysis ([facility]) ([facility]) 10/26/2019 Hemodialysis patient ([facility]) ([facility]) HTN (hypertension) 12/01/2022 Hypertension IgA nephropathy IgA nephropathy determined by biopsy of kidney 10/26/2019 Missed vaccination due to patient refusal 10/08/2023 Has a number of non-scientific based beliefs which interfere with his understanding and acceptance of the medical benefit of vaccination. Nonrheumatic aortic valve stenosis 10/08/2023 Paroxysmal A-fib ([facility]) ([facility]) 08/18/2023 Tobacco abuse 10/08/2023 [2] Past [...] Lab COLONOSCOPY N/A 01/24/2025 Performed by Chadd Daivs MD at [facility] ENDOSCOPY FISTULAGRAM [...] packs/day: 1.00 Average packs/day: 1.4 packs/day for 31.5 years (45.3 ttl pk-yrs) Types: Cigarettes Start date: 1993 Passive exposure: Past Smokeless tobacco: Never Tobacco comments: Started at 28, 3 PPD, tapered down to 1 PPD in 2020 after quitting drinking. 10/27/24 Vaping Use Vaping status: Never Used Substance Use Topics Alcohol use: Not Currently Drug use: Never [5] Allergies Allergen Reactions Lisinopril Swelling and Angioedema [6] Current Outpatient Medications on File Prior to [...] Take as directed per After Visit Summary. No current facility-administered medications on file prior to encounter. Assessments Nursing Assessment/Reassessment Score (check box all that apply) General Physical Exam 20 [x] Comprehensive Assessment (history, ROS, Risk Assessments, wound hx, etc) 25 [x] Wound and skin Assessment/Reassessment Dermatologic / Skin Assessment (not related to wound area) 10 [x] Ostomy and/or Continence Assessment & Care Incontinence Assessment and Management 10 [] Ostomy Care Assessment and Management (repouching, etc) 20 [] Process Coordination of Care Simple Patient/Family Education for ongoing care 15 [x] Complex (extensive) Patient/Family Education for ongoing of care 20 [] Staff obtains Consent, Records, Test Results/Process Orders 10 [x] Staff telephones [facility], Nursing Homes/Clarify Orders 10 [] Routine Transfer to another Facility (non-emergent condition) 10 [] Routine Hospital Admission (non-emergent condition) 10 [] New Admissions/Insurance Auth/Ordering NPWT, skin substitute, etc. 15 [x] Emergency Hospital Admission (emergent condition) 20 [] Special Needs Pediatric / Minor Patient Management 10 [] Isolation Patient Management 10 [] Hearing/Language/Visual Special Needs 15 [] Assessment of Community Assistance (transportation, discharge planning) 15 [] Additional Assistance / Altered Mentation 15 [] Support Surface Assessment (bed, cushion, seat) 15 [x] Interventions Miscellaneous External Ear Exam 5 [] Patient Transfer (multiple staff/Pearl lift) 10 [] Simple Staple/Suture Removal (25 or less) 5 [] Complex Staple/Suture Removal (26 or more) 10 [] Hypo/Hyperglycemic Management 10 [] Ankle/Brachial Index (KIM) 15 [] Total Points - Use to Determine Level of Clinic Visit 95 Points Francis: Level 1 (1-35 Points) Level 2 (40-75 Points) Level 3 (80-115 Points) Level 4 (120-155 Points) Level 5 (160 or more Points) documented in this encounter [facility] 05-04-2025 Hospital Discharg e instructions Fabiola Moy RN - 05/04/2025 8:30 AM EDT Follow-up Appointments: Return Appointment in 1 week. Call [place] [facility] at [phone], [facility] at [phone], or [facility] at [phone]. Edema/Swelling: Avoid standing for long periods of time, elevate legs to the level of the heart or above 30 minutes daily and/or when sitting. Offloading: Avoid pressure to wound site as often as possible. ANY AMOUNT OF PRESSURE WILL DELAY WOUND HEALING. Offloading wound site is extremely important to assist in wound healing. Avoid friction and shearing, do not scoot or slide. Lift your weight up when repositioning. Roho cushion is recommended Bathing/Showering: OK to shower but do not soak or submerge wound. Use an antibacterial soap, such as dial to cleanse wound area once the rest of the body has been washed. Nutrition: Follow diet per physician instructions such as increasing protein intake to promote wound healing 100 gram of protein a day If diabetic-Monitor blood sugars to help with wound healing. High blood sugars can affect wound healing. Wound Care: L Toes (Daily) Cleanse wound with mild soap and water and pat dry Spread Betadine to eschar Mesalt rope to wound bed and in between toes Gauze Wrap with Kerlix, tape to secure Surgical shoe Wound Care: Sacral (Daily) until wound vac is in place Cleanse wound with mild soap and water and pat dry Apply Collagen to wound bed Cover with Foam dressing VIDEO PRODUCTION ASSISTANT recommends to re-apply wound vac Apply drape as close to wound bed as possible. Apply black foam over Adaptic. Cover black foam with drape. Cut small hole into drape for track pad, then place track pad over hole. Signs and symptoms of wound infection: - fever - flu-like symptoms - pus or unusual drainage - foul odor - worsening of wound - spreading redness or warmth around the wound - increased pain - increasing and/or uncontrolled blood sugar for diabetics Please call the wound center at [phone] if you are experiencing this. If we are closed and you are unable to reach us in person please go to the ER. documented in this encounter [facility] 05-04-2025 Hospital Discharg e instructions Fabiola Moy RN - 05/04/2025 8:30 AM EDT Follow-up Appointments: Return Appointment in 1 week. Call [place] [facility] at [phone], [facility] at [phone], or [facility] at [phone]. Edema/Swelling: Avoid standing for long periods of time, elevate legs to the level of the heart or above 30 minutes daily and/or when sitting. Offloading: Avoid pressure to wound site as often as possible. ANY AMOUNT OF PRESSURE WILL DELAY WOUND HEALING. Offloading wound site is extremely important to assist in wound healing. Avoid friction and shearing, do not scoot or slide. Lift your weight up when repositioning. Roho cushion is recommended Bathing/Showering: OK to shower but do not soak or submerge wound. Use an antibacterial soap, such as dial to cleanse wound area once the rest of the body has been washed. Nutrition: Follow diet per physician instructions such as increasing protein intake to promote wound healing 100 gram of protein a day If diabetic-Monitor blood sugars to help with wound healing. High blood sugars can affect wound healing. Wound Care: L Toes (Daily) Cleanse wound with mild soap and water and pat dry Spread Betadine to eschar Mesalt rope to wound bed and in between toes Gauze Wrap with Kerlix, tape to secure Surgical shoe Wound Care: Sacral (Daily) until wound vac is in place Cleanse wound with mild soap and water and pat dry Apply Collagen to wound bed Cover with Foam dressing VIDEO PRODUCTION ASSISTANT recommends to re-apply wound vac Apply drape as close to wound bed as possible. Apply black foam over Adaptic. Cover black foam with drape. Cut small hole into drape for track pad, then place track pad over hole. Signs and symptoms of wound infection: - fever - flu-like symptoms - pus or unusual drainage - foul odor - worsening of wound - spreading redness or warmth around the wound - increased pain - increasing and/or uncontrolled blood sugar for diabetics Please call the wound center at [phone] if you are experiencing this. If we are closed and you are unable to reach us in person please go to the ER. documented in this encounter [facility] 05-04-2025 Miscellaneous Notes Encounter addended by: Fabiola Moy RN on: 05/04/2025 12:32 PM Actions taken: Clinical Note Signed, Charge Capture section accepted documented in this encounter [facility] 05-04-2025 Miscellaneous Notes Encounter addended by: Fabiola Moy RN on: 05/04/2025 12:32 PM Actions taken: Clinical Note Signed, Charge Capture section accepted Encounter addended by: Claudia Dimas RN on: 05/08/2025 9:33 AM Actions taken: LDA properties accepted documented in this encounter [facility] 05-04-2025 Note Encounter addended b y: Fabiola Moy RN on: 05/04/2025 12:32 PM Actions taken: Clinical Note Signed, Charge Capture section accepted [facility] 05-04-2025 Note Encounter addended b y: Fabiola Moy RN on: 05/04/2025 12:32 PM Actions taken: Clinical Note Signed, Charge Capture section accepted [facility] 05-04-2025 Note Encounter addended b y: Fabiola Moy RN on: 05/04/2025 12:32 PM Actions taken: Clinical Note Signed, Charge Capture section accepted [facility] 05-04-2025 Note Encounter addended b y: Fabiola Moy RN on: 05/04/2025 12:32 PM Actions taken: Clinical Note Signed, Charge Capture section accepted [facility] 05-04-2025 Note Encounter addended b y: Fabiola Moy RN on: 05/04/2025 12:32 PM Actions taken: Clinical Note Signed, Charge Capture section accepted [facility] 05-04-2025 Note Encounter addended b y: Claudia Dimas RN on: 05/08/2025 9:33 AM Actions taken: LDA properties accepted [facility] 04-25-2025 Telephone encount er Note Name of caller: Sabino Contact phone number: [phone] Relationship to Patient: [facility] Provider: Shayy Practice: Pulm Chief Complaint/Reason for Call: Sabino calling to reschedule appointment 04/26/25. Please advise Sabino. Best time of day caller can be reached: any Patient advised that office/PCP has 24-48 business hours to return their call: Yes [facility] 04-25-2025 Miscellaneous Notes Formattin g of this note might be different from the original. Name of caller: Sbaino Contact phone number: [phone] Relationship to Patient: [facility] Provider: Shayy Practice: [place] Chief Complaint/Reason for Call: Sabino calling to reschedule appointment 04/26/25. Please advise Sabino. Best time of day caller can be reached: any Patient advised that office/PCP has 24-48 business hours to return their call: Yes documented in this encounter [facility] 04-17-2025 Emergency department Note Report called to [facility]. [facility] 04-17-2025 Emergency department Note Report called to [facility]. PIV placed, blood collected for lab work, pt states it hurts and he does not want an PIV left in, If I leave it he will rip it out. PIV Dc'd documented in this encounter [facility] 04-17-2025 Hospital Discharg e instructions Keiry [...] Do When Your INR Is Too High (Jamaican)documented in this encounter [facility] 04-17-2025 Emergency department Note PIV placed, blood collected for lab work, pt states it hurts and he does not want an PIV left in, If I leave it he will rip it out. PIV Dc'd [facility] 04-11-2025 Note At this time patient s appointment is cancelled due to insurance being a HMO, there is no referral on file. Provided fax number once received will contact to schedule. Please advise [facility] 04-11-2025 Telephone encount er Note At this time patients appointment is cancelled due to insurance being a HMO, there is no referral on file. Provided fax number once received will contact to schedule. Please advise [facility] 04-11-2025 Miscellaneous Notes Formattin g of [...] Medication Name: n/a documented in this encounter [facility] 04-11-2025 Telephone encount er Note Scheduled next avail with Dr. Mata. [facility] 04-11-2025 Telephone encount er Note Name of Caller: Sabino Contact Reason for Appointment: Sabino requesting to schedule patient appointment for podiatry. Please advise. Office Name: Ortho Medication Refills need, if any: n/a Medication Name: n/a [facility] 04-09-2025 Emergency department Note Consuelo Johnson here to transport pt back to facility. [facility] 04-09-2025 Emergency department Note Consuelo Johnson here to transport pt back to facility. EMERGENCY DEPARTMENT ENCOUNTER Pt Name: Jun Snyder Birthdate 1965 Date of evaluation: 04/09/2025 ED Provider: Yair Santos PA-C CHIEF COMPLAINT Chief Complaint Patient [...] to the emergency department via EMS from [facility] for evaluation of hyperkalemia. Patient states [...] who presents to the emergency department from [facility] with concerns for hyperkalemia. Patient reports [...] signs. FINAL IMPRESSION 1. ESRD on hemodialysis ([facility]) ([facility]) 2. Contusion of dorsum of right hand DISPOSITION Discharge 04/09/2025 01:35:38 PM Shared decision making preformed. PATIENT REFERRED TO: [facility] [address] [place] [id number] As needed, If symptoms worsen (Comment: [...] Date Acute renal failure (ARF) ([facility]) 10/19/2019 Anemia 12/30/2021 Calcification of abdominal aorta ([facility]) 10/08/202309/[address] abd Diverticulosis 10/08/2023 ESRD on hemodialysis ([facility]) ([facility]) 10/26/2019 Hemodialysis patient ([facility]) ([facility]) HTN (hypertension) 12/01/2022 Hypertension IgA nephropathy IgA nephropathy determined by biopsy of kidney 10/26/2019 Missed vaccination due to patient refusal 10/08/2023 Has a number of non-scientific based beliefs which interfere with his understanding and acceptance of the medical benefit of vaccination. Nonrheumatic aortic valve stenosis 10/08/2023 Paroxysmal A-fib ([facility]) ([facility]) 08/18/2023 Tobacco abuse 10/08/2023 [2] Past [...] 0 min Stress: Stress Concern Present (02/21/2025) [employer] - Occupational Stress Questionnaire Feeling of Stress : To some extent Social Connections: Unknown (02/21/2025) Social Connection and Isolation Panel [NHANES] Frequency of Communication with Friends and Family: More than three times a week Frequency of Social Gatherings with Friends and Family: Patient declined Attends Baptism Services: Patient declined Active Member of Clubs [...] PA-C 04/09/25 1400 documented in this encounter [facility] 04-09-2025 Hospital Discharg e instructions Yari [...] change or worsen. documented in this encounter [facility] 04-09-2025 Physician Emergen cy department Note [...] to the emergency department via EMS from [facility] for evaluation of hyperkalemia. Patient states [...] who presents to the emergency department from [facility] with concerns for hyperkalemia. Patient reports [...] signs. FINAL IMPRESSION 1. ESRD on hemodialysis ([facility]) ([facility]) 2. Contusion of dorsum of right hand DISPOSITION Discharge 04/09/2025 01:35:38 PM Shared decision making preformed. PATIENT REFERRED TO: [facility] [address] [place] [phone] As needed, If symptoms worsen (Comment: [...] Date Acute renal failure (ARF) ([facility]) 10/19/2019 Anemia 12/30/2021 Calcification of abdominal aorta ([facility]) 10/08/202309/[address] abd Diverticulosis 10/08/2023 ESRD on hemodialysis ([facility]) ([facility]) 10/26/2019 Hemodialysis patient ([facility]) ([facility]) HTN (hypertension) 12/01/2022 Hypertension IgA nephropathy IgA nephropathy determined by biopsy of kidney 10/26/2019 Missed vaccination due to patient refusal 10/08/2023 Has a number of non-scientific based beliefs which interfere with his understanding and acceptance of the medical benefit of vaccination. Nonrheumatic aortic valve stenosis 10/08/2023 Paroxysmal A-fib ([facility]) ([facility]) 08/18/2023 Tobacco abuse 10/08/2023 [2] Past [...] 0 min Stress: Stress Concern Present (02/21/2025) [employer] - Occupational Stress Questionnaire Feeling of Stress : To some extent Social Connections: Unknown (02/21/2025) Social Connection and Isolation Panel [NHANES] Frequency of Communication with Friends and Family: More than three times a week Frequency of Social Gatherings with Friends and Family: Patient declined Attends Baptism Services: Patient declined Active Member of Clubs [...] Year: No Yari Santos PA-C 04/09/25 1400 [facility] 04-05-2025 Hospital Discharg e instructions Barbara [...] follow-up as recommended. documented in this encounter [facility] 04-05-2025 Nurse Note Patient Name: Jun Snyder Patient : 1965 Acct: [id number] Date of Admission: 04/05/2025 Room/Bed: Code Status: [...] (0) 3 Regular None (Room air) Clear;Diminished Harold;Ecchymosis Warm;Dry Soft Present pt consents to dialysis [...] - Before each treatment: Dialysis Machine No.: [id number] RO Machine Number: [id number] Dialyzer Lot No.: [id number] Tubing Lot Number: [id number] All Connections Secure: Yes Venous Parameters Set: Yes Arterial Parameters Set: Yes NS Bag: Yes Saline Line Double Clamped: Yes Dialyzer: Nipro Prime Volume (mL): 200 mL RO Machine Number: [id number] RO Machine Log Sheet Completed: Yes Machine Alarm Self Test: Completed, Passed (1351) (04/05/25 135) Air Foam Detector: Tested, Proper Function Extracorporeal Circuit Tested for Integrity: Yes Machine Conductivity: 13.6 Manual Conductivity: 13.6 Manual Ph: 7 Bleach Test (Neg): Yes Bath Temperature: 36 C (96.8 F) Conductivity Meter Serial #: [id number] Machine Functioning Alarm Free? Yes Dialysis Bath: K+ (Potassium): 2 Ca+ (Calcium): 2.5 Na+ (Sodium): 137 HCO3 (Bicarb): 35 Bicarbonate Concentrate Lot No.: [id number] Acid Concentrate Lot No.: [id number] Chlorine Testing - Before each treatment and every 4 hours: Time On: 1403 Treatment Goal: 2L Weight Height: 177.8 cm (5' 10") (04/05/25 101) Weight: 66.7 kg (147 lb) (04/05/25 101) BMI (Calculated): 21.09 (04/05/25 101) 1st check: [...] Yes pt alert, no complaints, uf removal 7 04/05/25 1703 250 mL/min -- -- -- [...] Active Problem List Diagnosis Anemia Paroxysmal A-fib ([facility]) (HCC) HTN (hypertension) ESRD on hemodialysis ([facility]) ([facility]) IgA nephropathy determined by biopsy of [...] Tracheostomy care (HCC) [Z43.0] Pulmonary embolism (HCC) terminal clerk (current) use of antibiotics Complication of tracheostomy (CMS/HCC) (HCC) BRBPR (bright red blood per rectum) Hemoptysis SOB (shortness of breath) Moderate malnutrition (CMS/HCC) (HCC) Shortness of breath [3] [facility] 04-05-2025 Nurse Note Patient Name: Jun Snyder Patient : 1965 Acct: [id number] Date of Admission: 04/05/2025 Room/Bed: Code Status: [...] (0) 3 Regular None (Room air) Clear;Diminished Harold;Ecchymosis Warm;Dry Soft Present pt consents to dialysis [...] - Before each treatment: Dialysis Machine No.: [id number] RO Machine Number: [id number] Dialyzer Lot No.: [id number] Tubing Lot Number: [id number] All Connections Secure: Yes Venous Parameters Set: Yes Arterial Parameters Set: Yes NS Bag: Yes Saline Line Double Clamped: Yes Dialyzer: Nipro Prime Volume (mL): 200 mL RO Machine Number: [id number] RO Machine Log Sheet Completed: Yes Machine Alarm Self Test: Completed, Passed (1351) (04/05/25 1351) Air Foam Detector: Tested, Proper Function Extracorporeal Circuit Tested for Integrity: Yes Machine Conductivity: 13.6 Manual Conductivity: 13.6 Manual Ph: 7 Bleach Test (Neg): Yes Bath Temperature: 36 C (96.8 F) Conductivity Meter Serial #: [id number] Machine Functioning Alarm Free? Yes Dialysis Bath: K+ (Potassium): 2 Ca+ (Calcium): 2.5 Na+ (Sodium): 137 HCO3 (Bicarb): 35 Bicarbonate Concentrate Lot No.: [id number] Acid Concentrate Lot No.: [id number] Chlorine Testing - Before each treatment and every 4 hours: Time On: 3 Treatment Goal: 2L Weight Height: 177.8 cm (5' 10") (04/05/251014) Weight: 66.7 kg (147 lb) (04/05/251014) BMI [...] and report given to Primary RN at 5240. Primary RN (First Initial, Last Name, Title): [...] Acute respiratory failure with hypoxia ([facility]) [J96.01] Tracheostomy care ([facility]) [Z43.0] Pulmonary embolism (HCC) alf (current) use of antibiotics Complication of tracheostomy (CMS/HCC) (HCC) BRBPR (bright red blood per rectum) Hemoptysis SOB (shortness of breath) Moderate malnutrition (CMS/HCC) ([facility]) Shortness of breath [3] documented in this encounter [facility] 04-05-2025 Emergency department Note Dialysis at bedside. [facility] 04-05-2025 Emergency department Note Dialysis at [...] provider for clarification. Dieter Villegas MD 04/05/25 8483 Pt here to the ER via EMS [...] and get vitals. documented in this encounter [facility] 04-05-2025 Miscellaneous Notes Formattin g of this note might be different from the original. Noted Spoke with patient's nurse from [facility]. Patient's nurse stated will need to cancel today's appointment. Nurse stated Patient was sent to [place] [facility] for tachycardia. Nurse stated can not complete dialysis with patient's tachycardia. Nurse stated Sabino who scheduled appointments will call the office at a later time to reschedule patient's appointment. FYI to provider. documented in this encounter [facility] 04-05-2025 Telephone encount er Note Noted [facility] [place] Work Phone: 04-05-2025 Emergency department Note Pt has no complaints at this time. [facility] 04-05-2025 Emergency department Triage note Pt [...] to hook pt up and get vitals. [facility] 04-05-2025 Physician Emergen cy department Note [...] for clarification. Dieter Villegas MD 04/05/25 1329 [facility] 04-05-2025 Telephone encount er Note Spoke with patient's nurse from [facility]. Patient's nurse stated will need to cancel today's appointment. Nurse stated Patient was sent to [place] [facility] for tachycardia. Nurse stated can not complete dialysis with patient's tachycardia. Nurse stated Sabino who scheduled appointments will call the office at a later time to reschedule patient's appointment. FYI to provider. [facility] 03-26-2025 Telephone encount er Note 3rd attempt unable to speak to Sabino she's not in the office at them moment. Left message to call the office back to schedule [facility] 03-26-2025 Miscellaneous Notes Formattin g of [...] this? Thank you documented in this encounter [facility] 03-26-2025 Telephone encount er Note Sabino has been notified the visit can not be virtual [facility] 03-26-2025 Miscellaneous Notes Formattin g of this note might be different from the original. Sabino has been notified the visit can not be virtual Name of Caller: Bobbi Delvalle [place] Contact Reason for Appointment: Change 04/05/25 hospital follow up to a vv. Please call and advise. Office Name: [facility] [place] documented in this encounter [facility] 03-26-2025 Telephone encount er Note Name of Caller: Bobbi Delvalle [place] Contact Reason for Appointment: Change 04/05/25 hospital follow up to a vv. Please call and advise. Office Name: [facility] [place] [facility] 03-21-2025 Nurse Note Educated pt on importance of prescribed medications. Pt still refused. [facility] 03-21-2025 Nurse Note Educated pt on importance of prescribed medications. Pt still refused. Patient Name: Jun Snyder Patient : 1965 Acct: [id number] Date of Admission: 03/13/2025 Room/Bed: [facility] A Code Status: Full Code Allergies: [...] na Date of Last Dressing Change: na [id number] [address]?: na Red Alcohol [...] - Before each treatment: Dialysis Machine No.: [id number] RO Machine Number: [id number] Dialyzer Lot No.: [id number] Tubing Lot Number: [id number] All Connections Secure: Yes Venous Parameters Set: Yes Arterial Parameters Set: Yes NS Bag: Yes Saline Line Double Clamped: Yes Dialyzer: Nipro Prime Volume (mL): 200 mL RO Machine Number: [id number] RO Machine Log Sheet Completed: Yes Machine Alarm Self Test: Completed, Passed (03/20/25 1145) Air Foam Detector: Tested, Proper Function, pH Reading Extracorporeal Circuit Tested for Integrity: Yes Machine Conductivity: 13.8 Manual Conductivity: 13.8 Manual Ph: 7 Bleach Test (Neg): Yes Bath Temperature: 36 C (96.8 F) Conductivity Meter Serial #: [id number] Machine Functioning Alarm Free? Yes Dialysis Bath: K+ (Potassium): 2 Ca+ (Calcium): 2.5 Na+ (Sodium): 135 HCO3 (Bicarb): 35 Chlorine Testing - Before each treatment and every 4 hours: Time On: 1216 Time Off: 1516 Treatment Goal: 2L Weight Height: 177.8 cm (5' 10") (03/14/25 161) Weight: 69.8 kg (153 lb 12.8 oz) [...] Other (Comment) (to inform patient arrival from [place] emergency room and need for orders) Provider [...] Diagnosis Anemia Paroxysmal A-fib (CMS/HCC) ([facility]) HTN (hypertension) ESRD on hemodialysis (CMS/HCC) ([facility]) IgA nephropathy determined by biopsy of kidney Diverticulosis Nonrheumatic aortic valve stenosis Calcification of abdominal aorta (HCC) Missed vaccination due to patient refusal Tobacco abuse Alcohol use disorder in remission Atrial flutter, unspecified type (HCC) RSV (acute bronchiolitis due to respiratory syncytial virus) Aortic stenosis Upper GI bleed S/P AVR Acute hypoxic respiratory failure ([facility]) Acute encephalopathy Pneumoperitoneum Gastric ulceration Severe malnutrition (CMS/HCC) ([facility]) Pleural effusion Peritonitis due to fungus (HCC) History of abdominal surgery Leg DVT (deep venous thromboembolism), acute, left (HCC) Ischemic ulcer of toe of left foot, 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) Tracheostomy dependence (HCC) Leukocytosis Decubitus ulcer of sacral region, unstageable (HCC) Pneumonia of both lungs due to methicillin susceptible Staphylococcus aureus (MSSA) ([facility]) Sacral osteomyelitis (CMS/HCC) ([facility]) Acute respiratory failure with hypoxia ([facility]) [J96.01] Tracheostomy care ([facility]) [Z43.0] Pulmonary embolism ([facility]) alf (current) use of antibiotics Complication of tracheostomy (CMS/HCC) ([facility]) BRBPR (bright red blood per rectum) Hemoptysis SOB (shortness of breath) Moderate malnutrition (CMS/HCC) ([facility]) [3] heparin, 5-30 Units/kg/hr, Last Rate: 20 Units/kg/hr (03/20/25 1328) Wound vac suction failing-pt requesting wound vac removed for now. Black foam dressing removed and wound packed with saline-soaked gauze covered with DSD Pt adamantly refusing telemetry at this time, ripped off monitor and threw to the floor Patient Name: Jun Snyder Patient : 1965 Acct: [id number] Date of Admission: 03/13/2025 Room/Bed: [facility] A Code Status: Full Code Allergies: [...] - Before each treatment: Dialysis Machine No.: [id number] RO Machine Number: [id number] Dialyzer Lot No.: [id number] Tubing Lot Number: [id number] All Connections Secure: Yes Venous Parameters Set: Yes Arterial Parameters Set: Yes NS Bag: Yes Saline Line Double Clamped: Yes Dialyzer: Nipro Prime Volume (mL): 200 mL RO Machine Number: [id number] RO Machine Log Sheet Completed: Yes Machine Alarm Self Test: Completed, Passed (03/17/25 0803) Air Foam Detector: Tested, Proper Function, pH Reading Extracorporeal Circuit Tested for Integrity: Yes Machine Conductivity: 13.6 Manual Conductivity: 13.6 Manual Ph: 7 Bleach Test (Neg): Yes Bath Temperature: 36 C (96.8 F) Conductivity Meter Serial #: [id number] Machine Functioning Alarm Free? Yes Dialysis Bath: K+ (Potassium): 2 Ca+ (Calcium): 2.5 Na+ (Sodium): 135 HCO3 (Bicarb): 35 Chlorine Testing - Before each treatment and every 4 hours: Time On: 0841 Time Off: 1141 Treatment Goal: 2L Weight Height: 177.8 cm (5' 10") (03/14/25 1617) Weight: 64.4 kg (142 lb) (03/17/25 05) BMI (Calculated): 20.37 (03/17/25 05) 1st check: less than 0.1 ppm at: [...] Other (Comment) (to inform patient arrival from [place] emergency room and need for orders) Provider [...] (HCC) HTN (hypertension) ESRD on hemodialysis (CMS/HCC) ([facility]) IgA nephropathy determined by biopsy of kidney Diverticulosis Nonrheumatic aortic valve stenosis Calcification of abdominal aorta ([facility]) Missed vaccination due to patient refusal Tobacco abuse Alcohol use disorder in remission Atrial flutter, unspecified type (HCC) RSV (acute bronchiolitis due to respiratory syncytial virus) Aortic stenosis Upper GI bleed S/P AVR Acute hypoxic respiratory failure ([facility]) Acute encephalopathy Pneumoperitoneum Gastric ulceration Severe malnutrition (CMS/HCC) ([facility]) Pleural effusion Peritonitis due to fungus ([facility]) History of abdominal surgery Leg DVT (deep venous thromboembolism), acute, left ([facility]) Ischemic ulcer of toe of left foot, limited to breakdown of skin ([facility]) Tracheostomy dependence ([facility]) Leukocytosis Decubitus ulcer of sacral region, unstageable ([facility]) Pneumonia of both lungs due to methicillin susceptible Staphylococcus aureus (MSSA) ([facility]) Sacral osteomyelitis ([facility]/HCC) ([facility]) Acute respiratory failure with hypoxia ([facility]) [J96.01] Tracheostomy care ([facility]) [Z43.0] Pulmonary embolism ([facility]) terminal clerk (current) use of antibiotics Complication of tracheostomy ([facility]/HCC) ([facility]) BRBPR (bright red blood per rectum) Hemoptysis SOB (shortness of breath) Moderate malnutrition ([facility]) ([facility]) [3] heparin, 5-30 Units/kg/hr Patient Name: Jun Snyder Patient : 1965 Acct: [id number] Date of Admission: 03/13/2025 Room/Bed: [facility] A Code Status: Full Code Allergies: [...] PLT 392 03/15/2025 0434 NA 139 03/15/2025 043 K 4.5 03/15/2025 0434 CL 100 03/15/2025 0434 CO2 28 03/15/2025 0434 BUN 30 (H) 03/15/2025 0434 CREATININE 3.13 (H) 03/15/2025 0434 CREATININE 9.99 (H) 10/27/2019 0545 CALCIUM 9.2 03/15/2025 0434 PHOS 2.6 02/23/2025 0032 IV Drips and Rate/Dose Continuous Meds[3] Safety - Before each treatment: Dialysis Machine No.: [id number] RO Machine Number: [id number] Dialyzer Lot No.: [id number] Tubing Lot Number: [id number] All Connections Secure: Yes Venous Parameters Set: Yes Arterial Parameters Set: Yes NS Bag: Yes Saline Line Double Clamped: Yes Dialyzer: Nipro Prime Volume (mL): 200 mL RO Machine Number: [id number] RO Machine Log Sheet Completed: Yes Machine Alarm Self Test: Completed, Passed (03/15/25 1215) Air Foam Detector: Tested, Proper Function, pH Reading Extracorporeal Circuit Tested for Integrity: Yes Machine Conductivity: 13.8 Manual Conductivity: 13.7 Manual Ph: 7 Bleach Test (Neg): Yes Bath Temperature: 36 C (96.8 F) Conductivity Meter Serial #: [id number] Machine Functioning Alarm Free? Yes Dialysis Bath: [...] Temporal 102 16 100 % -- -- 03/14/255 136/90 36.4 C (97.5 F) Temporal 115 16 100 % -- -- 06/18/25 2128 136/90 -- -- 104 -- -- [...] Other (Comment) (to inform patient arrival from [place] emergency room and need for orders) Provider [...] Active Problem List Diagnosis Anemia Paroxysmal A-fib ([facility]) ([facility]) HTN (hypertension) ESRD on hemodialysis ([facility]) ([facility]) IgA nephropathy determined by biopsy of kidney Diverticulosis Nonrheumatic aortic valve stenosis Calcification of abdominal aorta ([facility]) Missed vaccination due to patient refusal Tobacco abuse Alcohol use disorder in remission Atrial flutter, unspecified type ([facility]) RSV (acute bronchiolitis due to respiratory syncytial virus) Aortic stenosis Upper GI bleed S/P AVR Acute hypoxic respiratory failure ([facility]) Acute encephalopathy Pneumoperitoneum Gastric ulceration Severe malnutrition (CMS/HCC) ([facility]) Pleural effusion Peritonitis due to fungus ([facility]) History of abdominal surgery Leg DVT (deep venous thromboembolism), acute, left ([facility]) Ischemic ulcer of toe of left foot, limited to breakdown of skin ([facility]) Tracheostomy dependence ([facility]) Leukocytosis Decubitus ulcer of sacral region, unstageable ([facility]) Pneumonia of both lungs due to methicillin susceptible Staphylococcus aureus (MSSA) ([facility]) Sacral osteomyelitis ([facility]/HCC) ([facility]) Acute respiratory failure with hypoxia ([facility]) [J96.01] Tracheostomy care ([facility]) [Z43.0] Pulmonary embolism ([facility]) alf (current) use of antibiotics Complication of tracheostomy ([facility]/HCC) ([facility]) BRBPR (bright red blood per rectum) Hemoptysis SOB (shortness of breath) Moderate malnutrition ([facility]/HCC) ([facility]) [3] Wound Care consulted for Pressure Injury Prevention. Pt's Kee score= 14 on 6/17 Pt's pressure points assessed. Pt's Heels, Back, Elbows, Occiput and ears all intact. Harold and healed area noted to occiput. Pt moving lower extremities well in bed against gravity. Pt currently followed by Wound PACKAGE DELIVERY DRIVER group for wounds to left toes 1-4 and sacrum with wound vac in place. For left toes, sacrum, and sacral wound vac assessments and treatment plan, please see Wound/Ostomy PACKAGE DELIVERY DRIVER progress notes. Instructed pt on pressure injury prevention and importance of turning/postioning every 2hrs while in bed and every 15 min while sitting in chair. Instructed on use and care of waffle chair cushion. Verbalized understanding. Prevention Measures in place, including: Fontana sheet with pillows/wedges, Heels elevated off bed on pillows, Zinc/Moisture Barrier ointment (obtained), Waffle chair cushion (obtained for pt). Skin Care precaution order set in place. Dietitian consult order placed d/t wounds. PT/OT consult in place. Will continue to follow pt. Please Vocera for any questions or concerns. Yari Pelletier RN Patient Name: Jun Snyder Patient : 1965 Acct: [id number] Date of Admission: 03/13/2025 Room/Bed: [facility] A Code Status: Full Code Allergies: [...] - Before each treatment: Dialysis Machine No.: [id number] RO Machine Number: [id number] Dialyzer Lot No.: [id number] Tubing Lot Number: [id number] All Connections Secure: Yes Venous Parameters Set: Yes Arterial Parameters Set: Yes NS Bag: Yes Saline Line Double Clamped: Yes Dialyzer: Nipro Prime Volume (mL): 200 mL RO Machine Number: [id number] RO Machine Log Sheet Completed: Yes Machine Alarm Self Test: Completed, Passed (03/14/25 1135) Air Foam Detector: Tested, Proper Function, pH Reading Extracorporeal Circuit Tested for Integrity: Yes Machine Conductivity: 13.7 Manual Conductivity: 13.6 Manual Ph: 7 Bleach Test (Neg): Yes Bath Temperature: 36 C (96.8 F) Conductivity Meter Serial #: [id number] Machine Functioning Alarm Free? Yes Dialysis Bath: [...] Other (Comment) (to inform patient arrival from [place] emergency room and need for orders) Provider [...] Active Problem List Diagnosis Anemia Paroxysmal A-fib ([facility]) ([facility]) HTN (hypertension) ESRD on hemodialysis ([facility]) ([facility]) IgA nephropathy determined by biopsy of kidney Diverticulosis Nonrheumatic aortic valve stenosis Calcification of abdominal aorta ([facility]) Missed vaccination due to patient refusal Tobacco abuse Alcohol use disorder in remission Atrial flutter, unspecified type ([facility]) RSV (acute bronchiolitis due to respiratory syncytial virus) Aortic stenosis Upper GI bleed S/P AVR Acute hypoxic respiratory failure ([facility]) Acute encephalopathy Pneumoperitoneum Gastric ulceration Severe malnutrition ([facility]) ([facility]) Pleural effusion Peritonitis due to fungus ([facility]) History of abdominal surgery Leg DVT (deep venous thromboembolism), acute, left ([facility]) Ischemic ulcer of toe of left foot, limited to breakdown of skin ([facility]) Tracheostomy dependence ([facility]) Leukocytosis Decubitus ulcer of sacral region, unstageable (HCC) Pneumonia of both lungs due to methicillin susceptible Staphylococcus aureus (MSSA) (HCC) Sacral osteomyelitis (CMS/HCC) (HCC) Acute respiratory failure with hypoxia (HCC) [J96.01] Tracheostomy care (HCC) [Z43.0] Pulmonary embolism (HCC) terminal clerk (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 MAR, Labs & Discharge med list transmitted to [facility] via [facility] per TCC request. [facility] 03-21-2025 Note Formatting of this n ote might be different from the original. MAR, Labs & Discharge med list transmitted to [facility] via [facility] per TCC request. [facility] 03-21-2025 Miscellaneous Notes Formattin g of this note might be different from the original. MAR, Labs & Discharge med list transmitted to [facility] via [facility] per TCC request. Transport requested in Roundtrip. Awaiting time confirmation. Confirmed pickup time of 5:00PM by transport [place] [employer] at phone number . Location of facility drop off is [facility]. Facility notified via [facility], Kaity Rivera notified on secure chat. Care Management Progress Note Short Medical why still here: Heparin gtt stopped today. . INR 2.9 today. Getting Coumadin. Refusing to work with therapy. They would like to skill him if able. Planned Discharge Disposition: Prison/Residential Care Barriers/Today we still Wait: Administering IV [...] Coumadin. INR 1.9 today Planned Discharge Disposition: Prison/Residential Care Barriers/Today we still Wait: Clinical stability [...] When stable plan is to return to [facility].. . Length of Stay (Days): [...] for gangrenous toes. [facility] . Length of Stay (Days): 3 [...] When stable is a bed hold at [facility]. . Length of Stay (Days): 2 [...] therapies are following. Wants to return to [facility]. Is a bed hold, but if they can skill him they would like to.. Length of Stay (Days): 1 GMLOS: No GMLOS Documented Referral placed to [facility] Return - [facility] via [facility] per TCC request. Await review and response regarding ability to accept. TCC notified. Problem: Knowledge Deficit Goal: Patient/family/caregiver demonstrates understanding of disease process, treatment plan, medications, and discharge instructions Outcome: Progressing Problem: Potential for Compromised Skin Integrity Goal: Skin Integrity is Maintained or Improved Outcome: Progressing documented in this encounter [facility] 03-21-2025 Note Formatting of this n ote might be different from the original. Transport requested in [facility]trip. Awaiting time confirmation. Confirmed pickup time of 5:00PM by transport [place] [employer] at phone number . Location of facility drop off is [facility]. [facility], Kaity Rivera notified on secure chat. [facility] 03-21-2025 Note Formatting of this n ote might be different from the original. Transport requested in [employer]trip. Awaiting time confirmation. Confirmed pickup time of 5:00PM by transport [place] [employer] at phone number . Location of facility drop off is [facility]. Facility notified via [facility], Kaity Willoughby [employer] notified on secure chat. [facility] 03-21-2025 Note [facility] 03-21-2025 Hospital course Narrative Discharge Summary [...] Klebsiella pneumonia with lung abscess presented to [place] [facility] with worsening shortness of breath. He [...] Complexity: follow up within 7-14 calendar days (96882) [x] Severe Complexity: follow up within 7 calendar days (38562) FOLLOW UP TESTING, PENDING RESULTS OR REFERRALS AT TRANSITIONAL CARE VISIT: [] Yes [x] No PENDING STUDIES: None DISPOSITION: [facility] (Non-Skilled) FACILITY/HOME CARE AGENCY NAME: [facility] Follow up with [address] [facility] [phone] Follow up INSTRUCTIONS TO MA/SW: Please call [...] 03/21/2025, 12:07 PM documented in this encounter [facility] 03-21-2025 History of Presen t illness [...] Klebsiella pneumonia with lung abscess presented to [place] ED with worsening shortness of breath. He [...] Intake/Output Summary (Last 24 hours) at 03/21/2025 0987 Last data filed at 03/20/2025 1523 Gross [...] 8 10 8 LIVER PROFILE: Recent Labs 03/19/252 03/20/25 0548 03/21/25623 AST 52* 46* 59* ALT 14 13 13 BILITOT 0.9 0.8 0.9 ALKPHOS 221* 194* 217* PROT 7.4 7.3 7.2 PT/INR: Recent Labs 03/19/25 0752 03/20/25 0548 03/21/25623 PROTIME 17.0* 19.1* 29.0* INR 1.6* 1.9* [...] MD Division of Hospital Medicine Inpatient Medical Services/[place] [1] Past Medical History: Diagnosis Date Acute renal failure (ARF) ([facility]) 10/19/2019 Anemia 12/30/2021 Calcification of abdominal aorta ([facility]) 10/08/202309/[address] abd Diverticulosis 10/08/2023 ESRD on hemodialysis ([facility]) ([facility]) 10/26/2019 Hemodialysis patient ([facility]) ([facility]) HTN (hypertension) 12/01/2022 Hypertension IgA nephropathy IgA nephropathy determined by biopsy of kidney 10/26/2019 Missed vaccination due to patient refusal 10/08/2023 Has a number of non-scientific based beliefs which interfere with his understanding and acceptance of the medical benefit of vaccination. Nonrheumatic aortic valve stenosis 10/08/2023 Paroxysmal A-fib ([facility]) ([facility]) 08/18/2023 Tobacco abuse 10/08/2023 [2] Lidocaine, [...] Date Acute renal failure (ARF) ([facility]) 10/19/2019 Anemia 12/30/2021 Calcification of abdominal aorta ([facility]) 10/08/202309/[address] abd Diverticulosis 10/08/2023 ESRD on hemodialysis ([facility]) ([facility]) 10/26/2019 Hemodialysis patient ([facility]) ([facility]) HTN (hypertension) 12/01/2022 Hypertension IgA nephropathy IgA nephropathy determined by biopsy of kidney 10/26/2019 Missed vaccination due to patient refusal 10/08/2023 Has a number of non-scientific based beliefs which interfere with his understanding and acceptance of the medical benefit of vaccination. Nonrheumatic aortic valve stenosis 10/08/2023 Paroxysmal A-fib ([facility]) ([facility]) 08/18/2023 Tobacco abuse 10/08/2023 Images from the original note were not included. PHYSICAL THERAPY [facility] Name/MRN: Jair Snyder ([id number]) Date: 03/21/2025 Chart review completed this date. [...] Tay PT at 03/21/2025 2:58 PM EDT [facility] Anticoagulation Management Service ([facility]) Inpatient [...] dose of warfarin is 1.5 mg on /Th/Sat and 1 mg all other days. However [...] dose accordingly. 3. Warfarin is followed by [facility] outpatient. [facility] will manage inpatient and take over management once discharged from [facility]. Fatuma Odonnell RPh, PharmD SAILAJA is available daily [phone] via [employer]. If no response on [employer] Chat then please page [phone]. [1] Past Medical History: Diagnosis Date Acute renal failure (ARF) ([facility]) 10/19/2019 Anemia 12/30/2021 Calcification of abdominal aorta ([facility]) 10/08/202309/[address] abd Diverticulosis 10/08/2023 ESRD on hemodialysis ([facility]) ([facility]) 10/26/2019 Hemodialysis patient ([facility]) ([facility]) HTN (hypertension) 12/01/2022 Hypertension IgA nephropathy IgA nephropathy determined by biopsy of kidney 10/26/2019 Missed vaccination due to patient refusal 10/08/2023 Has a number of non-scientific based beliefs which interfere with his understanding and acceptance of the medical benefit of vaccination. Nonrheumatic aortic valve stenosis 10/08/2023 Paroxysmal A-fib ([facility]) ([facility]) 08/18/2023 Tobacco abuse 10/08/2023 Nutrition Assessment [...] Klebsiella pneumonia with lung abscess presented to [place] ED with worsening shortness of breath. He [...] Orders (From admission, onward) Start Ordered 03/14/25 1801 Supplement:Breakfast, Dinner; Chocolate Ensure Plus High Protein [...] (Aug 2024) % Weight Change (Calculated): -28.6 Universal Body Weight (lbs) (Calculated): 166 lbs Universal Body Weight (Kg) (Calculated): 75 kg % Universal Body Weight (Calculated): 88.6 % BMI (kg/m2) [...] Yasemin Ceron MS, RD, LD Contact: or [employer] Chat (dial *[phone] from hospital phone) [1] Lidocaine, 1 patch, Topical, Daily metoprolol tartrate, 50 mg, Oral, BID pantoprazole, 40 mg, Oral, BID AC sevelamer carbonate, 800 mg, Oral, TID WC sodium zirconium cyclosilicate, 5 g, Oral, Daily [2] heparin, 5-30 Units/kg/hr, Last Rate: 20 Units/kg/hr (03/20/25 1643) [facility] Anticoagulation Management Service ([facility]) Inpatient [...] candidate 2025, staffed with Fatuma Odonnell PharmD, [facility] SAILAJA is available daily [phone] via Collexpo. If no response on [employer] Chat then please page [phone]. [1] Past Medical History: Diagnosis Date Acute renal failure (ARF) ([facility]) 10/19/2019 Anemia 12/30/2021 Calcification of abdominal aorta ([facility]) 10/08/202309/[address] abd Diverticulosis 10/08/2023 ESRD on hemodialysis ([facility]) ([facility]) 10/26/2019 Hemodialysis patient ([facility]) ([facility]) HTN (hypertension) 12/01/2022 Hypertension IgA nephropathy IgA nephropathy determined by biopsy of kidney 10/26/2019 Missed vaccination due to patient refusal 10/08/2023 Has a number of non-scientific based beliefs which interfere with his understanding and acceptance of the medical benefit of vaccination. Nonrheumatic aortic valve stenosis 10/08/2023 Paroxysmal A-fib ([facility]) ([facility]) 08/18/2023 Tobacco abuse 10/08/2023 Cosigned by [...] Klebsiella pneumonia with lung abscess presented to [place] ED with worsening shortness of breath. He [...] MD Division of Hospital Medicine Inpatient Medical Services/[place] [1] Past Medical History: Diagnosis Date Acute renal failure (ARF) ([facility]) 10/19/2019 Anemia 12/30/2021 Calcification of abdominal aorta ([facility]) 10/08/202309/[address] abd Diverticulosis 10/08/2023 ESRD on hemodialysis ([facility]) ([facility]) 10/26/2019 Hemodialysis patient ([facility]) ([facility]) HTN (hypertension) 12/01/2022 Hypertension IgA nephropathy IgA nephropathy determined by biopsy of kidney 10/26/2019 Missed vaccination due to patient refusal 10/08/2023 Has a number of non-scientific based beliefs which interfere with his understanding and acceptance of the medical benefit of vaccination. Nonrheumatic aortic valve stenosis 10/08/2023 Paroxysmal A-fib ([facility]) ([facility]) 08/18/2023 Tobacco abuse 10/08/2023 [2] Lidocaine, [...] Date Acute renal failure (ARF) ([facility]) 10/19/2019 Anemia 12/30/2021 Calcification of abdominal aorta ([facility]) 10/08/202309/[address] abd Diverticulosis 10/08/2023 ESRD on hemodialysis ([facility]) ([facility]) 10/26/2019 Hemodialysis patient ([facility]) ([facility]) HTN (hypertension) 12/01/2022 Hypertension IgA nephropathy IgA nephropathy determined by biopsy of kidney 10/26/2019 Missed vaccination due to patient refusal 10/08/2023 Has a number of non-scientific based beliefs which interfere with his understanding and acceptance of the medical benefit of vaccination. Nonrheumatic aortic valve stenosis 10/08/2023 Paroxysmal A-fib ([facility]) ([facility]) 08/18/2023 Tobacco abuse 10/08/2023 [facility] Anticoagulation [...] Laura BenítezD candidate 2025, staffed with Fatuma Odonnell, Natali, [facility] SAILAJA is available daily [phone] via [employer]. If no response on [employer] Chat then please page [phone]. [1] Past Medical History: Diagnosis Date Acute renal failure (ARF) (HCC) 10/19/2019 Anemia 12/30/2021 Calcification of abdominal aorta (HCC) 10/08/202309/[address] abd Diverticulosis 10/08/2023 ESRD on hemodialysis ([facility]) ([facility]) 10/26/2019 Hemodialysis patient ([facility]) ([facility]) HTN (hypertension) 12/01/2022 Hypertension IgA nephropathy IgA nephropathy determined by biopsy of kidney 10/26/2019 Missed vaccination due to patient refusal 10/08/2023 Has a number of non-scientific based beliefs which interfere with his understanding and acceptance of the medical benefit of vaccination. Nonrheumatic aortic valve stenosis 10/08/2023 Paroxysmal A-fib ([facility]) ([facility]) 08/18/2023 Tobacco abuse 10/08/2023 Cosigned by Fatuma Odonnell RP at 03/19/2025 2:39 PM EDT Images from the original note were not included. [facility] Wound Care/NPWT Progress Note Jun [...] apply Betadine and allow to dry, leave SHEET ROCK TAPER daily and PRN Centrella Pro Plus bed Reposition q2hrs Incontinent checks q2hrs Nutritional support Wound Care to follow Recommend to follow up at [facility] wound care center after hospital discharge. [...] Date Acute renal failure (ARF) ([facility]) 10/19/2019 Anemia 12/30/2021 Calcification of abdominal aorta ([facility]) 10/08/202309/[address] abd Diverticulosis 10/08/2023 ESRD on hemodialysis ([facility]) ([facility]) 10/26/2019 Hemodialysis patient ([facility]) ([facility]) HTN (hypertension) 12/01/2022 Hypertension IgA nephropathy IgA nephropathy determined by biopsy of kidney 10/26/2019 Missed vaccination due to patient refusal 10/08/2023 Has a number of non-scientific based beliefs which interfere with his understanding and acceptance of the medical benefit of vaccination. Nonrheumatic aortic valve stenosis 10/08/2023 Paroxysmal A-fib ([facility]) ([facility]) 08/18/2023 Tobacco abuse 10/08/2023 [2] Past [...] Admit Date: 03/13/2025 PCP: Leilani Troncoso Room#: [id number] A Chief Complaint Patient presents with Shortness of Breath Pt arrived from assisted via EMS. Pt was starting dialysis and [...] Klebsiella pneumonia with lung abscess presented to [place] ED with worsening shortness of breath. He [...] in upper abdomen He was transferred from [place] [facility] to [facility] due to bed availability Nephrology consulted, [...] Net 200 ml LABS: CBC: Recent Labs 03/17/254603/18/2515803/19/25751 WBC 6.7 7.6 7.8 RBC 3.31* 3.03* [...] PROT 8.0 7.3 7.4 PT/INR: Recent Labs 03/17/254603/18/2515803/19/25751 PROTIME 16.0* 15.2* 17.0* INR 1.5* 1.5* [...] Date -1 to 2 days - Location -[facility] - Pending the following -clinical course, subtherapeutic INR, on bridging with heparin drip Total time spent (which include face to face and non face to face encounters) : 38.5 minutes Extended Emergency Contact Information Primary Emergency Contact: Omar Snyder Mobile Relation: Child Secondary Emergency Contact: Toma Mcneil Mobile Relation: Partner [place] Annamarie Dawkins MD Division of Hospital Medicine Inpatient Medical Services/[place] [1] Past Medical History: Diagnosis Date Acute renal failure (ARF) ([facility]) 10/19/2019 Anemia 12/30/2021 Calcification of abdominal aorta ([facility]) 10/08/202309/[address] abd Diverticulosis 10/08/2023 ESRD on hemodialysis ([facility]) ([facility]) 10/26/2019 Hemodialysis patient ([facility]) ([facility]) HTN (hypertension) 12/01/2022 Hypertension IgA nephropathy IgA nephropathy determined by biopsy of kidney 10/26/2019 Missed vaccination due to patient refusal 10/08/2023 Has a number of non-scientific based beliefs which interfere with his understanding and acceptance of the medical benefit of vaccination. Nonrheumatic aortic valve stenosis 10/08/2023 Paroxysmal A-fib ([facility]) ([facility]) 08/18/2023 Tobacco abuse 10/08/2023 [2] Lidocaine, [...] Date Acute renal failure (ARF) ([facility]) 10/19/2019 Anemia 12/30/2021 Calcification of abdominal aorta (HCC) 10/08/202309/[address] abd Diverticulosis 10/08/2023 ESRD on hemodialysis ([facility]) ([facility]) 10/26/2019 Hemodialysis patient ([facility]) ([facility]) HTN (hypertension) 12/01/2022 Hypertension IgA nephropathy IgA nephropathy determined by biopsy of kidney 10/26/2019 Missed vaccination due to patient refusal 10/08/2023 Has a number of non-scientific based beliefs which interfere with his understanding and acceptance of the medical benefit of vaccination. Nonrheumatic aortic valve stenosis 10/08/2023 Paroxysmal A-fib ([facility]) ([facility]) 08/18/2023 Tobacco abuse 10/08/2023 Nephrology Progress [...] sacral wound. Wellington Nicole MD' Please call [phone] or message me through [employer] with any questions or concerns. Nephrology Progress [...] at 03/18/2025 0814 Last data filed at 03/17/20251947 Gross per 24 hour Intake 420 ml Output 100 ml Net 320 ml Physical exam: Constitutional: NAD Neck: no bruits or jvd noted Cardiovascular: Normal S1, S2 without m/r/g Respiratory: CTAB without w/r/r Abdomen: +bs, soft, nt, nd Ext: no lower extremity edema Data: Labs: Recent Labs 03/16/25 0155 03/17/25 0047 03/18/25158 WBC 7.0 6.7 7.6 HGB 9.1* 10.0* 9.1* HCT 30.2* 33.8* 30.4* MCV 100.0* 102.1* 100.3* PLT 372 407 333 Recent Labs 03/16/25 0155 03/17/25 0047 03/18/25158 NA 139 141 139 K 4.1 3.9 [...] sacral wound. Wellington Nicole MD' Please call [phone] or message me through [employer] with any questions or concerns. Hospitalist Progress Note Subjective: Admit Date: 03/13/2025 PCP: Leilani Troncoso Room#: [id number] A Chief Complaint Patient presents with Shortness of Breath Pt arrived from assisted via EMS. Pt was starting dialysis and [...] Klebsiella pneumonia with lung abscess presented to [place] ED with worsening shortness of breath. He [...] in upper abdomen He was transferred from [place] [facility] to [facility] due to bed availability Nephrology consulted, [...] Intake/Output Summary (Last 24 hours) at 03/18/2025 3878 Last data filed at 03/17/2025 1948 Gross per 24 hour Intake 520 ml Output 100 ml Net 420 ml LABS: CBC: Recent Labs 03/16/25 0155 03/17/25 4603/18/25158 WBC 7.0 6.7 7.6 RBC 3.02* 3.31* [...] MD Division of Hospital Medicine Inpatient Medical Services/[place] [1] Past Medical History: Diagnosis Date Acute renal failure (ARF) ([facility]) 10/19/2019 Anemia 12/30/2021 Calcification of abdominal aorta ([facility]) 10/08/202309/[address] abd Diverticulosis 10/08/2023 ESRD on hemodialysis ([facility]) ([facility]) 10/26/2019 Hemodialysis patient ([facility]) ([facility]) HTN (hypertension) 12/01/2022 Hypertension IgA nephropathy IgA nephropathy determined by biopsy of kidney 10/26/2019 Missed vaccination due to patient refusal 10/08/2023 Has a number of non-scientific based beliefs which interfere with his understanding and acceptance of the medical benefit of vaccination. Nonrheumatic aortic valve stenosis 10/08/2023 Paroxysmal A-fib ([facility]) ([facility]) 08/18/2023 Tobacco abuse 10/08/2023 [2] Lidocaine, [...] Date Acute renal failure (ARF) ([facility]) 10/19/2019 Anemia 12/30/2021 Calcification of abdominal aorta ([facility]) 10/08/202309/[address] abd Diverticulosis 10/08/2023 ESRD on hemodialysis ([facility]) ([facility]) 10/26/2019 Hemodialysis patient ([facility]) (HCC) HTN (hypertension) 12/01/2022 Hypertension IgA nephropathy IgA nephropathy determined by biopsy of kidney 10/26/2019 Missed vaccination due to patient refusal 10/08/2023 Has a number of non-scientific based beliefs which interfere with his understanding and acceptance of the medical benefit of vaccination. Nonrheumatic aortic valve stenosis 10/08/2023 Paroxysmal A-fib (CMS/HCC) (HCC) 08/18/2023 Tobacco abuse 10/08/2023 [facility] Anticoagulation Management Service ([facility]) Inpatient [...] RPh, PharmD, BCPS SAILAJA is available daily [phone] via [employer] Chat. If no response on Epic Chat then please page [phone]. [1] Past Medical History: Diagnosis Date Acute renal failure (ARF) ([facility]) 10/19/2019 Anemia 12/30/2021 Calcification of abdominal aorta ([facility]) 10/08/202309/[address] abd Diverticulosis 10/08/2023 ESRD on hemodialysis ([facility]) ([facility]) 10/26/2019 Hemodialysis patient ([facility]) ([facility]) HTN (hypertension) 12/01/2022 Hypertension IgA nephropathy IgA nephropathy determined by biopsy of kidney 10/26/2019 Missed vaccination due to patient refusal 10/08/2023 Has a number of non-scientific based beliefs which interfere with his understanding and acceptance of the medical benefit of vaccination. Nonrheumatic aortic valve stenosis 10/08/2023 Paroxysmal A-fib ([facility]) ([facility]) 08/18/2023 Tobacco abuse 10/08/2023 Hospitalist Progress Note Subjective: Admit Date: 03/13/2025 PCP: Leilani Troncoso Room#: [id number] A Chief Complaint Patient presents with Shortness of Breath Pt arrived from assisted via EMS. Pt was starting dialysis and [...] Klebsiella pneumonia with lung abscess presented to [place] ED with worsening shortness of breath. He [...] in upper abdomen He was transferred from [facility] to [facility] due to bed availability Nephrology consulted, [...] 0933 LABS: CBC: Recent Labs 03/15/254 03/16/255 03/17/25 0047 WBC 6.7 7.0 6.7 RBC 3.02* 3.02* 3.31* HGB 9.2* 9.1* 10.0* HCT 30.1* 30.2* 33.8* MCV 99.7* 100.0* 102.1* RDW 21.3* 21.2* 21.2* PLT 392 372 407 BMP: Recent Labs 03/15/25 0434 03/16/25 0155 03/17/25 004 NA 139 139 141 K 4.5 4.1 [...] MD Division of Hospital Medicine Inpatient Medical Services/[place] [1] Past Medical History: Diagnosis Date Acute renal failure (ARF) ([facility]) 10/19/2019 Anemia 12/30/2021 Calcification of abdominal aorta ([facility]) 10/08/202309/[address] abd Diverticulosis 10/08/2023 ESRD on hemodialysis ([facility]) ([facility]) 10/26/2019 Hemodialysis patient ([facility]) ([facility]) HTN (hypertension) 12/01/2022 Hypertension IgA nephropathy IgA nephropathy determined by biopsy of kidney 10/26/2019 Missed vaccination due to patient refusal 10/08/2023 Has a number of non-scientific based beliefs which interfere with his understanding and acceptance of the medical benefit of vaccination. Nonrheumatic aortic valve stenosis 10/08/2023 Paroxysmal A-fib ([facility]) ([facility]) 08/18/2023 Tobacco abuse 10/08/2023 [2] Lidocaine, [...] Date Acute renal failure (ARF) ([facility]) 10/19/2019 Anemia 12/30/2021 Calcification of abdominal aorta ([facility]) 10/08/202309/[address] abd Diverticulosis 10/08/2023 ESRD on hemodialysis ([facility]) ([facility]) 10/26/2019 Hemodialysis patient ([facility]) ([facility]) HTN (hypertension) 12/01/2022 Hypertension IgA nephropathy IgA nephropathy determined by biopsy of kidney 10/26/2019 Missed vaccination due to patient refusal 10/08/2023 Has a number of non-scientific based beliefs which interfere with his understanding and acceptance of the medical benefit of vaccination. Nonrheumatic aortic valve stenosis 10/08/2023 Paroxysmal A-fib ([facility]) ([facility]) 08/18/2023 Tobacco abuse 10/08/2023 Nephrology Progress [...] 392 372 407 Recent Labs 03/15/2543303/16/255 03/17/25 004 NA 139 139 141 K 4.5 4.1 [...] sacral wound. Wellington Nicole MD' Please call [phone] or message me through [employer] with any questions or concerns. [facility] Anticoagulation [...] heparin while INR is subtherapeutic. Darya Mireles [facility], PharmD SAILAJA is available daily [phone] via [employer]. If no response on [employer] Chat then please page [phone]. [1] Past Medical History: Diagnosis Date Acute renal failure (ARF) (HCC) 10/19/2019 Anemia 12/30/2021 Calcification of abdominal aorta (HCC) 10/08/202309/[address] abd Diverticulosis 10/08/2023 ESRD on hemodialysis ([facility]) ([facility]) 10/26/2019 Hemodialysis patient ([facility]) ([facility]) HTN (hypertension) 12/01/2022 Hypertension IgA nephropathy IgA nephropathy determined by biopsy of kidney 10/26/2019 Missed vaccination due to patient refusal 10/08/2023 Has a number of non-scientific based beliefs which interfere with his understanding and acceptance of the medical benefit of vaccination. Nonrheumatic aortic valve stenosis 10/08/2023 Paroxysmal A-fib ([facility]) ([facility]) 08/18/2023 Tobacco abuse 10/08/2023 Images from the original note were not included. OCCUPATIONAL THERAPY [facility] Initial Evaluation Name/MRN: Jair Snyder ([id number]) Evaluation Date: 03/16/2025 Date of : 1965 Admission Date: 03/13/2025 8:18 AM Age: 59 y.o. Room[facility]Bed: [facility] A Discharge Recommendation[facility] Assessment IMPRESSION: Pt presented with SOB, [...] Problem List Diagnosis Date Noted Moderate malnutrition ([facility]) ([facility]) 03/14/2025 SOB (shortness of breath) 03/13/2025 Severe malnutrition ([facility]) ([facility]) 02/21/2025 Hemoptysis 02/20/2025 Complication of tracheostomy ([facility]) ([facility]) 01/19/2025 alf (current) use of antibiotics 01/12/2025 Acute respiratory failure with hypoxia ([facility]) [J96.01] 01/08/2025 Tracheostomy care ([facility]) [Z43.0] 01/08/2025 Pulmonary embolism ([facility]) 01/08/2025 Sacral osteomyelitis ([facility]) ([facility]) 01/03/2025 Pneumonia of both lungs due to methicillin susceptible Staphylococcus aureus (MSSA) ([facility]) 01/01/2025 Leukocytosis 12/30/2024 Decubitus ulcer of sacral region, unstageable ([facility]) 12/30/2024 Peritonitis due to fungus ([facility]) 11/30/2024 History of abdominal surgery 11/30/2024 Leg DVT (deep venous thromboembolism), acute, left ([facility]) 11/30/2024 Ischemic ulcer of toe of left foot, limited to breakdown of skin ([facility]) 11/30/2024 Tracheostomy dependence ([facility]) 11/30/2024 Pleural effusion 11/28/2024 Gastric ulceration 2024 Atrial flutter, unspecified type ([facility]) 10/03/2024 RSV (acute bronchiolitis due to respiratory syncytial virus) 10/03/2024 Diverticulosis 10/08/2023 Nonrheumatic aortic valve stenosis 10/08/2023 Calcification of abdominal aorta ([facility]) 10/08/2023 Missed vaccination due to patient refusal 10/08/2023 Tobacco abuse 10/08/2023 Alcohol use disorder in remission 10/08/2023 Paroxysmal A-fib ([facility]) ([facility]) 08/18/2023 HTN (hypertension) 12/01/2022 ESRD on hemodialysis ([facility]) ([facility]) 10/26/2019 IgA nephropathy determined by biopsy of kidney 10/26/2019 BRBPR (bright red blood per rectum) 01/19/2025 Aortic stenosis 10/03/2024 Upper GI bleed 10/03/2024 S/P AVR 10/03/2024 Acute hypoxic respiratory failure ([facility]) 10/03/2024 Acute encephalopathy 10/03/2024 Pneumoperitoneum 10/03/2024 [...] of Care supervision is transferred to a [facility] Therapy Services Occupational Therapist. Goals and/or treatment plan was established in collaboration with patient/family/other representatives. [1] Past Medical History: Diagnosis Date Acute renal failure (ARF) ([facility]) 10/19/2019 Anemia 12/30/2021 Calcification of abdominal aorta ([facility]) 10/08/202309/[address] abd Diverticulosis 10/08/2023 ESRD on hemodialysis ([facility]) ([facility]) 10/26/2019 Hemodialysis patient ([facility]) ([facility]) HTN (hypertension) 12/01/2022 Hypertension IgA nephropathy IgA nephropathy determined by biopsy of kidney 10/26/2019 Missed vaccination due to patient refusal 10/08/2023 Has a number of non-scientific based beliefs which interfere with his understanding and acceptance of the medical benefit of vaccination. Nonrheumatic aortic valve stenosis 10/08/2023 Paroxysmal A-fib ([facility]) ([facility]) 08/18/2023 Tobacco abuse 10/08/2023 [2] Past [...] PROCEDURES IR FISTULAGRAM 08/07/2022 IR FISTULAGRAM 08/07/2022 [facility] IR IMAGING TONSILLECTOMY (HISTORICAL) Hospitalist Progress Note Subjective: Admit Date: 03/13/2025 PCP: Leilani Troncoso Room#: [id number] A Chief Complaint Patient presents with Shortness of Breath Pt arrived from assisted via EMS. Pt was starting dialysis and [...] Klebsiella pneumonia with lung abscess presented to [place] ED with worsening shortness of breath. He [...] in upper abdomen He was transferred from [place] [facility] to [facility] due to bed availability Nephrology consulted, [...] Recent Labs 03/14/25 0507 03/15/25 0434 03/16/25 015 NA 141 139 139 K 5.2* [...] MD Division of Hospital Medicine Inpatient Medical Services/[place] [1] Past Medical History: Diagnosis Date Acute renal failure (ARF) ([facility]) 10/19/2019 Anemia 12/30/2021 Calcification of abdominal aorta ([facility]) 10/08/202309/[address] abd Diverticulosis 10/08/2023 ESRD on hemodialysis ([facility]) ([facility]) 10/26/2019 Hemodialysis patient ([facility]) ([facility]) HTN (hypertension) 12/01/2022 Hypertension IgA nephropathy IgA nephropathy determined by biopsy of kidney 10/26/2019 Missed vaccination due to patient refusal 10/08/2023 Has a number of non-scientific based beliefs which interfere with his understanding and acceptance of the medical benefit of vaccination. Nonrheumatic aortic valve stenosis 10/08/2023 Paroxysmal A-fib ([facility]) ([facility]) 08/18/2023 Tobacco abuse 10/08/2023 [2] Lidocaine, [...] Date Acute renal failure (ARF) ([facility]) 10/19/2019 Anemia 12/30/2021 Calcification of abdominal aorta ([facility]) 10/08/202309/[address] abd Diverticulosis 10/08/2023 ESRD on hemodialysis ([facility]) ([facility]) 10/26/2019 Hemodialysis patient ([facility]) ([facility]) HTN (hypertension) 12/01/2022 Hypertension IgA nephropathy [...] any questions or concerns Bree Molina APRN VIDEO PRODUCTION ASSISTANT A-G PACKAGE DELIVERY DRIVER [facility] [phone] Pt seen and examined independently by me. I reviewed with DOCUMENT CLERK-VIDEO PRODUCTION ASSISTANT the medical history and the findings on physical examination. I discussed the patient s diagnosis and concur with the treatment plan as documented in his note. Please call [phone] or message me through [employer] with any questions or concerns. Images from the original note were not included. [facility] Wound VAC Progress Note Jun [...] for pain with IV pain medication, per rn staffing, prior to wound VAC dressing change. 1 [...] apply Betadine and allow to dry, leave SHEET ROCK TAPER daily and PRN Centrella Pro Plus bed Reposition q2hrs Incontinent checks q2hrs Nutritional support Wound Care to follow Recommend to follow up at [facility] wound care center after hospital discharge. [...] CT abd Diverticulosis 10/08/2023 ESRD on hemodialysis ([facility]) ([facility]) 10/26/2019 Hemodialysis patient ([facility]) ([facility]) HTN (hypertension) 12/01/2022 Hypertension IgA nephropathy IgA nephropathy determined by biopsy of kidney 10/26/2019 Missed vaccination due to patient refusal 10/08/2023 Has a number of non-scientific based beliefs which interfere with his understanding and acceptance of the medical benefit of vaccination. Nonrheumatic aortic valve stenosis 10/08/2023 Paroxysmal A-fib ([facility]) ([facility]) 08/18/2023 Tobacco abuse 10/08/2023 [2] Past [...] PROCEDURES IR FISTULAGRAM 08/07/2022 IR FISTULAGRAM 08/07/2022 [facility] IR IMAGING TONSILLECTOMY (HISTORICAL) [3] [...] Gill DO at 03/19/2025 4:44 PM EDT [facility] Anticoagulation Management Service ([facility]) Inpatient [...] dose accordingly 3. Will facilitate f/u at [facility] upon discharge Kvng Dugan PharmD 2024 Candidate [facility] is available daily [phone] via [employer]. If no response on [employer] Chat then please page [phone]. [1] Past Medical History: Diagnosis Date Acute renal failure (ARF) ([facility]) 10/19/2019 Anemia 12/30/2021 Calcification of abdominal aorta ([facility]) 10/08/202309/[address] abd Diverticulosis 10/08/2023 ESRD on hemodialysis ([facility]) ([facility]) 10/26/2019 Hemodialysis patient ([facility]) ([facility]) HTN (hypertension) 12/01/2022 Hypertension IgA nephropathy IgA nephropathy determined by biopsy of kidney 10/26/2019 Missed vaccination due to patient refusal 10/08/2023 Has a number of non-scientific based beliefs which interfere with his understanding and acceptance of the medical benefit of vaccination. Nonrheumatic aortic valve stenosis 10/08/2023 Paroxysmal A-fib ([facility]) ([facility]) 08/18/2023 Tobacco abuse 10/08/2023 Cosigned by Tiffanie Dial [facility] at 03/16/2025 10:57 AM EDT Patient currently off unit, will attempt smoking cessation counseling at a later date. Hospitalist Progress Note Subjective: Admit Date: 03/13/2025 PCP: Leilani Troncoso Room#: [id number] A Chief Complaint Patient presents with Shortness of Breath Pt arrived from assisted via EMS. Pt was starting dialysis and [...] Klebsiella pneumonia with lung abscess presented to [place] ED with worsening shortness of breath. He [...] in upper abdomen He was transferred from [facility] to [facility] due to bed availability Nephrology consulted, [...] MD Division of Hospital Medicine Inpatient Medical Services/[place] [1] Past Medical History: Diagnosis Date Acute renal failure (ARF) ([facility]) 10/19/2019 Anemia 12/30/2021 Calcification of abdominal aorta ([facility]) 10/08/202309/[address] abd Diverticulosis 10/08/2023 ESRD on hemodialysis ([facility]) ([facility]) 10/26/2019 Hemodialysis patient ([facility]) ([facility]) HTN (hypertension) 12/01/2022 Hypertension IgA nephropathy IgA nephropathy determined by biopsy of kidney 10/26/2019 Missed vaccination due to patient refusal 10/08/2023 Has a number of non-scientific based beliefs which interfere with his understanding and acceptance of the medical benefit of vaccination. Nonrheumatic aortic valve stenosis 10/08/2023 Paroxysmal A-fib ([facility]) ([facility]) 08/18/2023 Tobacco abuse 10/08/2023 [2] Lidocaine, [...] Date Acute renal failure (ARF) ([facility]) 10/19/2019 Anemia 12/30/2021 Calcification of abdominal aorta ([facility]) 10/08/202309/[address] abd Diverticulosis 10/08/2023 ESRD on hemodialysis ([facility]) ([facility]) 10/26/2019 Hemodialysis patient ([facility]) ([facility]) HTN (hypertension) 12/01/2022 Hypertension IgA nephropathy IgA nephropathy determined by biopsy of kidney 10/26/2019 Missed vaccination due to patient refusal 10/08/2023 Has a number of non-scientific based beliefs which interfere with his understanding and acceptance of the medical benefit of vaccination. Nonrheumatic aortic valve stenosis 10/08/2023 Paroxysmal A-fib ([facility]) ([facility]) 08/18/2023 Tobacco abuse 10/08/2023 Nephrology Progress [...] any questions or concerns Bree Molina APRN VIDEO PRODUCTION ASSISTANT A-G PACKAGE DELIVERY DRIVER [facility] [phone] Pt seen and examined independently by me. I reviewed with DENIA-VIDEO PRODUCTION ASSISTANT the medical history and the findings on physical examination. I discussed the patient s diagnosis and concur with the treatment plan as documented in his note. Please call [phone] or message me through [employer] with any questions or concerns. [facility] Anticoagulation Management Service ([facility]) Inpatient [...] dose accordingly 3. Will facilitate f/u at [facility] upon discharge Kvng Dugan, Natali 2024 Candidate [facility] is available daily [phone] via [employer] Chat. If no response on [employer] Chat then please page [phone]. [1] Past Medical History: Diagnosis Date Acute renal failure (ARF) (HCC) 10/19/2019 Anemia 12/30/2021 Calcification of abdominal aorta (HCC) 10/08/202309/[address] abd Diverticulosis 10/08/2023 ESRD on hemodialysis ([facility]) (HCC) 10/26/2019 Hemodialysis patient ([facility]) (HCC) HTN (hypertension) 12/01/2022 Hypertension IgA [...] the original note were not included. [facility] Wound VAC Progress Note Jun [...] apply Betadine and allow to dry, leave SHEET ROCK TAPER daily and PRN Nutritional support Wound Care to follow Recommend to follow up at [facility] wound care center after hospital discharge. [...] Date Acute renal failure (ARF) ([facility]) 10/19/2019 Anemia 12/30/2021 Calcification of abdominal aorta ([facility]) 10/08/202309/[address] abd Diverticulosis 10/08/2023 ESRD on hemodialysis ([facility]) ([facility]) 10/26/2019 Hemodialysis patient ([facility]) ([facility]) HTN (hypertension) 12/01/2022 Hypertension IgA nephropathy IgA nephropathy determined by biopsy of kidney 10/26/2019 Missed vaccination due to patient refusal 10/08/2023 Has a number of non-scientific based beliefs which interfere with his understanding and acceptance of the medical benefit of vaccination. Nonrheumatic aortic valve stenosis 10/08/2023 Paroxysmal A-fib ([facility]) ([facility]) 08/18/2023 Tobacco abuse 10/08/2023 [2] Past [...] [facility] Initial Evaluation Name/MRN: Jair Snyder ([id number]) Evaluation Date: 03/14/2025 Date of : 1965 Admission Date: 03/13/2025 8:18 AM Age: 59 y.o. Room[facility]Bed: [facility] A Discharge Recommendation[facility] Equipment Needed: No Assessment IMPRESSION: Pt [...] SOB (shortness of breath) 03/13/2025 Severe malnutrition ([facility]) ([facility]) 02/21/2025 Hemoptysis 02/20/2025 Complication of tracheostomy ([facility]) ([facility]) 01/19/2025 terminal clerk (current) use of antibiotics 01/12/2025 Acute respiratory failure with hypoxia ([facility]) [J96.01] 01/08/2025 Tracheostomy care ([facility]) [Z43.0] 01/08/2025 Pulmonary embolism ([facility]) 01/08/2025 Sacral osteomyelitis ([facility]) ([facility]) 01/03/2025 Pneumonia of both lungs due to methicillin susceptible Staphylococcus aureus (MSSA) ([facility]) 01/01/2025 Leukocytosis 12/30/2024 Decubitus ulcer of sacral region, unstageable ([facility]) 12/30/2024 Peritonitis due to fungus ([facility]) 11/30/2024 History of abdominal surgery 11/30/2024 Leg DVT (deep venous thromboembolism), acute, left ([facility]) 11/30/2024 Ischemic ulcer of toe of left foot, limited to breakdown of skin ([facility]) 11/30/2024 Tracheostomy dependence ([facility]) 11/30/2024 Pleural effusion 11/28/2024 Gastric ulceration 2024 Atrial flutter, unspecified type ([facility]) 10/03/2024 RSV (acute bronchiolitis due to respiratory syncytial virus) 10/03/2024 Diverticulosis 10/08/2023 Nonrheumatic aortic valve stenosis 10/08/2023 Calcification of abdominal aorta ([facility]) 10/08/2023 Missed vaccination due to patient refusal 10/08/2023 Tobacco abuse 10/08/2023 Alcohol use disorder in remission 10/08/2023 Paroxysmal A-fib ([facility]) ([facility]) 08/18/2023 HTN (hypertension) 12/01/2022 ESRD on hemodialysis ([facility]) ([facility]) 10/26/2019 IgA nephropathy determined by biopsy of kidney 10/26/2019 BRBPR (bright red blood per rectum) 01/19/2025 Aortic stenosis 10/03/2024 Upper GI bleed 10/03/2024 S/P AVR 10/03/2024 Acute hypoxic respiratory failure ([facility]) 10/03/2024 Acute encephalopathy 10/03/2024 Pneumoperitoneum 10/03/2024 [...] awareness. Social/Functional History Pt has been at [facility] for rehab for the past [...] Raw Score (No Stairs) : 15 [facility] -[facility] Score: Walked 10 steps or more [...] of Care supervision is transferred to a [facility] Therapy Services Physical Therapist. Goals and/or treatment plan was established in collaboration with patient/family/other representatives. [1] Past Medical History: Diagnosis Date Acute renal failure (ARF) ([facility]) 10/19/2019 Anemia 12/30/2021 Calcification of abdominal aorta ([facility]) 10/08/202309/[address] abd Diverticulosis 10/08/2023 ESRD on hemodialysis ([facility]) ([facility]) 10/26/2019 Hemodialysis patient ([facility]) ([facility]) HTN (hypertension) 12/01/2022 Hypertension IgA nephropathy IgA nephropathy determined by biopsy of kidney 10/26/2019 Missed vaccination due to patient refusal 10/08/2023 Has a number of non-scientific based beliefs which interfere with his understanding and acceptance of the medical benefit of vaccination. Nonrheumatic aortic valve stenosis 10/08/2023 Paroxysmal A-fib ([facility]) ([facility]) 08/18/2023 Tobacco abuse 10/08/2023 [2] Past [...] PROCEDURES IR FISTULAGRAM 08/07/2022 IR FISTULAGRAM 08/07/2022 [facility] IR IMAGING TONSILLECTOMY (HISTORICAL) Hospitalist Progress Note Subjective: Admit Date: 03/13/2025 PCP: Leilani Troncoso Room#: W5-[facility]/[id number] A Chief Complaint Patient presents with Shortness of Breath Pt arrived from assisted via EMS. Pt was starting dialysis and [...] Klebsiella pneumonia with lung abscess presented to [place] ED with worsening shortness of breath. He [...] in upper abdomen He was transferred from [place] [facility] to [facility] due to bed availability Nephrology consulted, [...] MD Division of Hospital Medicine Inpatient Medical Services/[place] [1] Past Medical History: Diagnosis Date Acute renal failure (ARF) ([facility]) 10/19/2019 Anemia 12/30/2021 Calcification of abdominal aorta ([facility]) 10/08/202309/[address] abd Diverticulosis 10/08/2023 ESRD on hemodialysis ([facility]) ([facility]) 10/26/2019 Hemodialysis patient ([facility]) ([facility]) HTN (hypertension) 12/01/2022 Hypertension IgA nephropathy IgA nephropathy determined by biopsy of kidney 10/26/2019 Missed vaccination due to patient refusal 10/08/2023 Has a number of non-scientific based beliefs which interfere with his understanding and acceptance of the medical benefit of vaccination. Nonrheumatic aortic valve stenosis 10/08/2023 Paroxysmal A-fib ([facility]) ([facility]) 08/18/2023 Tobacco abuse 10/08/2023 [2] Lidocaine, [...] Date Acute renal failure (ARF) ([facility]) 10/19/2019 Anemia 12/30/2021 Calcification of abdominal aorta ([facility]) 10/08/202309/[address] abd Diverticulosis 10/08/2023 ESRD on hemodialysis ([facility]) ([facility]) 10/26/2019 Hemodialysis patient ([facility]) ([facility]) HTN (hypertension) 12/01/2022 Hypertension IgA nephropathy IgA nephropathy determined by biopsy of kidney 10/26/2019 Missed vaccination due to patient refusal 10/08/2023 Has a number of non-scientific based beliefs which interfere with his understanding and acceptance of the medical benefit of vaccination. Nonrheumatic aortic valve stenosis 10/08/2023 Paroxysmal A-fib ([facility]) ([facility]) 08/18/2023 Tobacco abuse 10/08/2023 [facility] Anticoagulation Management Service ([facility]) Inpatient [...] dose accordingly 3. Will facilitate f/u at [facility] upon discharge Tiffanie Dial RPh, PharmD [facility] is available daily [phone] via [employer] Chat. If no response on [employer] Chat then please page [phone]. [1] Past Medical History: Diagnosis Date Acute renal failure (ARF) ([facility]) 10/19/2019 Anemia 12/30/2021 Calcification of abdominal aorta ([facility]) 10/08/202309/[address] abd Diverticulosis 10/08/2023 ESRD on hemodialysis ([facility]) ([facility]) 10/26/2019 Hemodialysis patient ([facility]) ([facility]) HTN (hypertension) 12/01/2022 Hypertension IgA nephropathy IgA nephropathy determined by biopsy of kidney 10/26/2019 Missed vaccination due to patient refusal 10/08/2023 Has a number of non-scientific based beliefs which interfere with his understanding and acceptance of the medical benefit of vaccination. Nonrheumatic aortic valve stenosis 10/08/2023 Paroxysmal A-fib ([facility]) ([facility]) 08/18/2023 Tobacco abuse 10/08/2023 documented in this encounter [facility] 03-21-2025 Note Formatting of this n ote might be different from the original. Care Management Progress Note Short Medical why still here: Heparin gtt stopped today. . INR 2.9 today. Getting Coumadin. Refusing to work with therapy. They would like to skill him if able. Planned Discharge Disposition: Prison/Residential Care Barriers/Today we still Wait: Administering IV medications, Test results (comment) Length of Stay (Days): 8 GMLOS: 3.9 [facility] 03-21-2025 Note Formatting of this n ote might be different from the original. Care Management Progress Note Short Medical why still here: Heparin gtt stopped today. . INR 2.9 today. Getting Coumadin. Refusing to work with therapy. They would like to skill him if able. Planned Discharge Disposition: Prison/Residential Care Barriers/Today we still Wait: Administering IV medications, Test results (comment) Length of Stay (Days): 8 GMLOS: 3.9 [facility] 03-21-2025 Plan of care note Problem: [...] monitored and maintained or improved Outcome: Progressing [facility] 03-20-2025 Nurse Note Patient Name: Jun Snyder Patient : 1965 Acct: [id number] Date of Admission: 03/13/2025 Room/Bed: [facility] A Code Status: Full Code Allergies: [...] - Before each treatment: Dialysis Machine No.: [id number] Machine Number: [id number] Dialyzer Lot No.: [id number] Tubing Lot Number: [id number] All Connections Secure: Yes Venous Parameters Set: Yes Arterial Parameters Set: Yes NS Bag: Yes Saline Line Double Clamped: Yes Dialyzer: Nipro Prime Volume (mL): 200 mL RO Machine Number: [id number] RO Machine Log Sheet Completed: Yes Machine Alarm Self Test: Completed, Passed (03/20/25 1145) Air Foam Detector: Tested, Proper Function, pH Reading Extracorporeal Circuit Tested for Integrity: Yes Machine Conductivity: 13.8 Manual Conductivity: 13.8 Manual Ph: 7 Bleach Test (Neg): Yes Bath Temperature: 36 C (96.8 F) Conductivity Meter Serial #: [id number] Machine Functioning Alarm Free? Yes Dialysis Bath: K+ (Potassium): 2 Ca+ (Calcium): 2.5 Na+ (Sodium): 135 HCO3 (Bicarb): 35 Chlorine Testing - Before each treatment and every 4 hours: Time On: 1216 Time Off: 1516 Treatment Goal: 2L Weight Height: 177.8 cm (5' 10") (03/14/25 1617) Weight: 69.8 kg (153 lb 12.8 oz) (03/20/25 0422) BMI (Calculated): 22.07 (03/20/25 042) 1st check: [...] Other (Comment) (to inform patient arrival from [place] emergency room and need for orders) Provider [...] Staphylococcus aureus (MSSA) (HCC) Sacral osteomyelitis (CMS/HCC) ([facility]) Acute respiratory failure with hypoxia ([facility]) [J96.01] Tracheostomy care ([facility]) [Z43.0] Pulmonary embolism ([facility]) terminal clerk (current) use of antibiotics Complication of tracheostomy (CMS/HCC) ([facility]) BRBPR (bright red blood per rectum) Hemoptysis SOB (shortness of breath) Moderate malnutrition (CMS/HCC) ([facility]) [3] heparin, 5-30 Units/kg/hr, Last Rate: 20 Units/kg/hr (03/20/25 1328) [facility] Note Formatting of this n ote might be different from the original. Care Management Progress Note Short Medical why still here: Heparin gtt bridging to Coumadin. INR 1.9 today Planned Discharge Disposition: Prison/Residential Care Barriers/Today we still Wait: Clinical stability Length of Stay (Days): 7 GMLOS: 3.9 [facility]25 Note Formatting of this n ote might be different from the original. Care Management Progress Note Short Medical why still here: Heparin gtt bridging to Coumadin. INR 1.9 today Planned Discharge Disposition: Prison/Residential Care Barriers/Today we still Wait: Clinical stability Length of Stay (Days): 7 GMLOS: 3.9 T [facility] [place] 03-20-2025 Plan of care note Problem: Knowledge [...] monitored and maintained or improved Outcome: Progressing [facility] 03-19-2025 Note Formatting of this n ote might be different from the original. Care Management Progress Note Continues on a Heparin gtt. Trying to bridge to Coumadin. INR 1.6 today. When stable plan is to return to [facility].. . Length of Stay (Days): 6 GMLOS: 3.9 [facility] 03-19-2025 Note Formatting of this n ote might be different from the original. Care Management Progress Note Continues on a Heparin gtt. Trying to bridge to Coumadin. INR 1.6 today. When stable plan is to return to [facility].. . Length of Stay (Days): 6 GMLOS: 3.9 T [facility] 03-19-2025 Plan of care note Problem: [...] monitored and maintained or improved Outcome: Progressing [facility] 03-19-2025 Plan of care note Problem: [...] and maintained or improved Outcome: Progressing T [facility] 03-19-2025 Nurse Note Wound vac suction failing-pt requesting wound vac removed for now. Black foam dressing removed and wound packed with saline-soaked gauze covered with DSD [facility] 03-19-2025 Nurse Note Pt adamantly refusing telemetry at this time, ripped off monitor and threw to the floor T [facility] 03-18-2025 Note Problem: Pain - Adul t Goal: Verbalizes/displays adequate comfort level or baseline comfort level Outcome: Progressing Problem: Safety - Adult Goal: Free from fall injury Outcome: Progressing [facility] 03-18-2025 Plan of care note Problem: Pain - Adult Goal: Verbalizes/displays adequate comfort level or baseline comfort level Outcome: Progressing Problem: Safety - Adult Goal: Free from fall injury Outcome: Progressing T [facility] 03-17-2025 Plan of care note Problem: [...] monitored and maintained or improved Outcome: Progressing [facility] 03-17-2025 Note Problem: Pain - Adul t Goal: Verbalizes/displays adequate comfort level or baseline comfort level Outcome: Progressing Problem: Safety - Adult Goal: Free from fall injury Outcome: Progressing [facility] 03-17-2025 Plan of care note Problem: Pain - Adult Goal: Verbalizes/displays adequate comfort level or baseline comfort level Outcome: Progressing Problem: Safety - Adult Goal: Free from fall injury Outcome: Progressing [facility] 03-17-2025 Nurse Note Patient Name: Jun Snyder Patient : 1965 Acct: [id number] Date of Admission: 03/13/2025 Room/Bed: [facility] A Code Status: Full Code Allergies: [...] - Before each treatment: Dialysis Machine No.: [id number] RO Machine Number: [id number] Dialyzer Lot No.: [id number] Tubing Lot Number: [id number] All Connections Secure: Yes Venous Parameters Set: Yes Arterial Parameters Set: Yes NS Bag: Yes Saline Line Double Clamped: Yes Dialyzer: Nipro Prime Volume (mL): 200 mL RO Machine Number: [id number] RO Machine Log Sheet Completed: Yes Machine Alarm Self Test: Completed, Passed (03/17/25 0803) Air Foam Detector: Tested, Proper Function, pH Reading Extracorporeal Circuit Tested for Integrity: Yes Machine Conductivity: 13.6 Manual Conductivity: 13.6 Manual Ph: 7 Bleach Test (Neg): Yes Bath Temperature: 36 C (96.8 F) Conductivity Meter Serial #: [id number] Machine Functioning Alarm Free? Yes Dialysis Bath: [...] Other (Comment) (to inform patient arrival from [place] [facility] room and need for orders) Provider [...] Active Problem List Diagnosis Anemia Paroxysmal A-fib ([facility]) ([facility]) HTN (hypertension) ESRD on hemodialysis ([facility]) ([facility]) IgA nephropathy determined by biopsy of kidney Diverticulosis Nonrheumatic aortic valve stenosis Calcification of abdominal aorta ([facility]) Missed vaccination due to patient refusal Tobacco abuse Alcohol use disorder in remission Atrial flutter, unspecified type ([facility]) RSV (acute bronchiolitis due to respiratory syncytial virus) Aortic stenosis Upper GI bleed S/P AVR Acute hypoxic respiratory failure ([facility]) Acute encephalopathy Pneumoperitoneum Gastric ulceration Severe malnutrition ([facility]) ([facility]) Pleural effusion Peritonitis due to fungus ([facility]) History of abdominal surgery Leg DVT (deep venous thromboembolism), acute, left ([facility]) Ischemic ulcer of toe of left foot, limited to breakdown of skin ([facility]) Tracheostomy dependence ([facility]) Leukocytosis Decubitus ulcer of sacral region, unstageable ([facility]) Pneumonia of both lungs due to methicillin susceptible Staphylococcus aureus (MSSA) ([facility]) Sacral osteomyelitis ([facility]/HCC) ([facility]) Acute respiratory failure with hypoxia ([facility]) [J96.01] Tracheostomy care ([facility]) [Z43.0] Pulmonary embolism ([facility]) terminal clerk (current) use of antibiotics Complication of tracheostomy ([facility]) ([facility]) BRBPR (bright red blood per rectum) Hemoptysis SOB (shortness of breath) Moderate malnutrition ([facility]/HCC) ([facility]) [3] heparin, 5-30 Units/kg/hr [facility] 03-16-2025 Plan of care note Problem: Knowledge Deficit Goal: Patient/family/caregiver demonstrates understanding of disease process, treatment plan, medications, and discharge instructions Outcome: Progressing Problem: Potential for Compromised Skin Integrity Goal: Nutritional status is improving Outcome: Progressing T [facility] 03-16-2025 Plan of care note Problem: [...] Interventions Goal: Assess Nutritional Intake Outcome: Progressing [facility] 03-16-2025 Note Formatting of this n ote might be different from the original. Care Management Progress Note Going to dialysis today. Refusing surgery for gangrenous toes. Anticipate discharge back to [facility] soon. . Length of Stay (Days): 3 GMLOS: 3.9 [facility] 03-16-2025 Note Formatting of this n ote might be different from the original. Care Management Progress Note Going to dialysis today. Refusing surgery for gangrenous toes. Anticipate discharge back to [facility] soon. . Length of Stay (Days): 3 GMLOS: 3.9 [facility] 03-16-2025 Note Care Management Prog ress Note Going to dialysis today. Refusing surgery for gangrenous toes. Anticipate discharge back to [facility] soon. . Length of Stay (Days): 3 GMLOS: 3.9 [facility] 03-15-2025 Note Formatting of this n ote might be different from the original. SW reviewed chart. Copy of DPOA found in electronic chart naming Omar connell as agent. Care Management Return to Hospital Readmission questionnaire- N/A- pt form [facility]CF. [facility] 03-15-2025 Note Formatting of this n ote might be different from the original. ELIA reviewed chart. Copy of DPOA found in electronic chart naming Omar connell as agent. Care Management Return to Hospital Readmission questionnaire- N/A- pt form [facility]CF. T [facility] 03-15-2025 Note ELIA reviewed chart. Copy of DPOA found in electronic chart naming Omar connell as agent. Care Management Return to Hospital Readmission questionnaire- N/A- pt form [facility]CF. [facility] 03-15-2025 Consult note Associated Order (s): Inpatient consult to Vascular Surgery--[facility]; Gangrenous toes noted on first 4 toes on left lower extremity, please evaluate Images from the original note were not included. Inpatient consult to Vascular Surgery--[facility]; Gangrenous toes noted on [...] 0 min Stress: Stress Concern Present (02/21/2025) [facility] [employer] [facility] - Occupational Stress Questionnaire Feeling of Stress : To some extent Social Connections: Unknown (02/21/2025) Social Connection and Isolation Panel [NHANES] Frequency of Communication with Friends and Family: More than three times a week Frequency of Social Gatherings with Friends and Family: Patient declined Attends Baptism Services: Patient declined Active Member of Clubs [...] Department of Surgery General Surgery Resident Pager: [phone] PAGING / [employer] Secure Chat: From 6a-6p (6a- weekends): Epic Secure Chat (FIRST) or Pager above (EMERGENT/Second) From 6p-6a (-s): Find resident physician under [facility] [...] This note may have been dictated using BonaYou Practice Edition and/or [facility] Acute[employer] Voice Recognition Feature. The document was proofread; however, unrecognized voice recognition senior controls technician errors may be present. [1] Past Medical History: Diagnosis Date Acute renal failure (ARF) ([facility]) 10/19/2019 Anemia 12/30/2021 Calcification of abdominal aorta ([facility]) 10/08/202309/[address] abd Diverticulosis 10/08/2023 ESRD on hemodialysis ([facility]) ([facility]) 10/26/2019 Hemodialysis patient ([facility]) ([facility]) HTN (hypertension) 12/01/2022 Hypertension IgA nephropathy IgA nephropathy determined by biopsy of kidney 10/26/2019 Missed vaccination due to patient refusal 10/08/2023 Has a number of non-scientific based beliefs which interfere with his understanding and acceptance of the medical benefit of vaccination. Nonrheumatic aortic valve stenosis 10/08/2023 Paroxysmal A-fib ([facility]) ([facility]) 08/18/2023 Tobacco abuse 10/08/2023 [2] Past [...] planning if and when patient is willing. [employer] Phone: 03-15-2025 Consult note Associated Order (s): Inpatient consult to Vascular Surgery--[facility]; Gangrenous toes noted on first 4 toes on left lower extremity, please evaluate Images from the original note were not included. Inpatient consult to Vascular Surgery--[facility]; Gangrenous toes noted on first 4 toes on left lower extremity, please evaluate Consult performed by: Earelne Royal MD Consult ordered by: Barb Dawkins [...] 0 min Stress: Stress Concern Present (02/21/2025) [facility] [employer] [facility] - Occupational Stress Questionnaire Feeling of Stress : To some extent Social Connections: Unknown (02/21/2025) Social Connection and Isolation Panel [NHANES] Frequency of Communication with Friends and Family: More than three times a week Frequency of Social Gatherings with Friends and Family: Patient declined Attends Baptism Services: Patient declined Active Member of Clubs [...] Department of Surgery General Surgery Resident Pager: [phone] PAGING / [employer] Secure Chat: From -p (-s): [employer] Secure Chat (FIRST) or Pager above (EMERGENT/Second) [...] This note may have been dictated using BonaYou Practice Edition and/or [facility] Voice Recognition Feature. The document was proofread; however, unrecognized voice recognition senior controls technician errors may be present. [1] Past Medical History: Diagnosis Date Acute renal failure (ARF) ([facility]) 10/19/2019 Anemia 12/30/2021 Calcification of abdominal aorta ([facility]) 10/08/202309/[address] abd Diverticulosis 10/08/2023 ESRD on hemodialysis ([facility]) ([facility]) 10/26/2019 Hemodialysis patient ([facility]) ([facility]) HTN (hypertension) 12/01/2022 Hypertension IgA nephropathy IgA nephropathy determined by biopsy of kidney 10/26/2019 Missed vaccination due to patient refusal 10/08/2023 Has a number of non-scientific based beliefs which interfere with his understanding and acceptance of the medical benefit of vaccination. Nonrheumatic aortic valve stenosis 10/08/2023 Paroxysmal A-fib ([facility]) ([facility]) 08/18/2023 Tobacco abuse 10/08/2023 [2] Past [...] MS, RD, LD Clinical Dietitian Contact: or [employer] Chat (dial *[phone] from hospital phone) Associated Order(s): IP CONSULT [...] ascites and omental edema in upper abdomen.) Autocad Strength: Not Performed Chief Complaint Patient presents with Shortness of Breath Pt arrived from assisted via EMS. Pt was starting dialysis and [...] On: Kcal/kg Weight Used for Energy Requirements: Universal Weight for Energy Calculation (kg): 75 kg Total Energy Requirements (kcals/day): 1148-2720 (25-30 kcals/kg) Weight Used for Protein Requirements: Universal Weight in Kg Used for Protein Requirements: [...] TSH 6.88 (H) 03/13/2025 FREET4 0.89 03/15/2025 [id number] 959 (H) 10/22/2019 FOLATE 9.2 10/22/2019 FERRITIN [...] for updated dry wt - per nephro) Universal Body Weight (lbs) (Calculated): 166 lbs Universal Body Weight (Kg) (Calculated): 75 kg % Universal Body Weight (Calculated): 88.6 % BMI (kg/m2) [...] Yasemin Ceron MS, RD, LD Contact: or [employer] Chat (dial *[phone] from hospital phone) [1] Past Medical History: Diagnosis Date Acute renal failure (ARF) ([facility]) 10/19/2019 Anemia 12/30/2021 Calcification of abdominal aorta ([facility]) 10/08/202309/[address] abd Diverticulosis 10/08/2023 ESRD on hemodialysis ([facility]) ([facility]) 10/26/2019 Hemodialysis patient ([facility]) ([facility]) HTN (hypertension) 12/01/2022 Hypertension IgA nephropathy IgA nephropathy determined by biopsy of kidney 10/26/2019 Missed vaccination due to patient refusal 10/08/2023 Has a number of non-scientific based beliefs which interfere with his understanding and acceptance of the medical benefit of vaccination. Nonrheumatic aortic valve stenosis 10/08/2023 Paroxysmal A-fib ([facility]) ([facility]) 08/18/2023 Tobacco abuse 10/08/2023 [2] Past [...] PROCEDURES IR FISTULAGRAM 08/07/2022 IR FISTULAGRAM 08/07/2022 [facility] IR IMAGING TONSILLECTOMY (HISTORICAL) [3] Lidocaine, 1 patch, Topical, Daily metoprolol tartrate, 25 mg, Oral, q6h pantoprazole, 40 mg, Oral, BID AC sevelamer carbonate, 800 mg, Oral, TID WC sodium zirconium cyclosilicate, 5 g, Oral, Daily warfarin, 2.5 mg, Oral, Once [4] [facility] Consult Note Consults HPI Jun is [...] 0 min Stress: Stress Concern Present (02/21/2025) [facility] [employer] [facility] - Occupational Stress Questionnaire Feeling of Stress : To some extent Social Connections: Unknown (02/21/2025) Social Connection and Isolation Panel [NHANES] Frequency of Communication with Friends and Family: More than three times a week Frequency of Social Gatherings with Friends and Family: Patient declined Attends Baptism Services: Patient declined Active Member of Clubs [...] and sacral wound. Please message me through [employer] chat with any questions or concerns. Wellington Nicole MD 03/14/2025 10:43 AM [facility] [address] [place] [address], [address] [place] [address] Office: [phone] [1] Past Medical History: Diagnosis Date Acute renal failure (ARF) ([facility]) 10/19/2019 Anemia 12/30/2021 Calcification of abdominal aorta ([facility]) 10/08/202309/[address] abd Diverticulosis 10/08/2023 ESRD on hemodialysis ([facility]) ([facility]) 10/26/2019 Hemodialysis patient ([facility]) ([facility]) HTN (hypertension) 12/01/2022 Hypertension IgA nephropathy IgA nephropathy determined by biopsy of kidney 10/26/2019 Missed vaccination due to patient refusal 10/08/2023 Has a number of non-scientific based beliefs which interfere with his understanding and acceptance of the medical benefit of vaccination. Nonrheumatic aortic valve stenosis 10/08/2023 Paroxysmal A-fib ([facility]) ([facility]) 08/18/2023 Tobacco abuse 10/08/2023 [2] Family [...] [id number] Associated Order(s): IP CONSULT TO CARDIOLOGY [facility] Cardiology /Electrophysiology Consult Note Reason for Consult/Chief Complaint: Volume overload, afib rvr Referring provider: Dr Kidd Established customer care coordinator: Dr Shah History of Present Illness: Jun [...] to select rehab. He recently was at [facility] for Klebsiella pneumonia, hemoptysis and lung [...] of Cardiovascular Disease, Division of Heart Failure [facility] 3:25 PM 03/14/25 Associated Order(s): INPATIENT CONSULT TO WOUND CARE PROVIDERS Images from the original note were not included. [facility] Wound VAC CONSULT Note Jun [...] to follow Recommend to follow up at [facility] wound care center after hospital discharge. [...] Date Acute renal failure (ARF) ([facility]) 10/19/2019 Anemia 12/30/2021 Calcification of abdominal aorta (HCC) 10/08/202309/[address] abd Diverticulosis 10/08/2023 ESRD on hemodialysis (CMS/HCC) ([facility]) 10/26/2019 Hemodialysis patient ([facility]) ([facility]) HTN (hypertension) 12/01/2022 Hypertension IgA nephropathy IgA nephropathy determined by biopsy of kidney 10/26/2019 Missed vaccination due to patient refusal 10/08/2023 Has a number of non-scientific based beliefs which interfere with his understanding and acceptance of the medical benefit of vaccination. Nonrheumatic aortic valve stenosis 10/08/2023 Paroxysmal A-fib ([facility]) ([facility]) 08/18/2023 Tobacco abuse 10/08/2023 [2] Past [...] 4:44 PM EDT documented in this encounter [facility] 03-15-2025 Note Patient currently of f unit, will attempt smoking cessation counseling at a later date. [facility] 03-15-2025 Nurse Note Patient Name: Jun Snyder Patient : 1965 Acct: [id number] Date of Admission: 03/13/2025 Room/Bed: [facility] A Code Status: Full Code Allergies: [...] - Before each treatment: Dialysis Machine No.: [id number] RO Machine Number: [id number] Dialyzer Lot No.: [id number] Tubing Lot Number: [id number] All Connections Secure: Yes Venous Parameters Set: Yes Arterial Parameters Set: Yes NS Bag: Yes Saline Line Double Clamped: Yes Dialyzer: Nipro Prime Volume (mL): 200 mL RO Machine Number: [id number] RO Machine Log Sheet Completed: Yes Machine Alarm Self Test: Completed, Passed (03/15/25 1215) Air Foam Detector: Tested, Proper Function, pH Reading Extracorporeal Circuit Tested for Integrity: Yes Machine Conductivity: 13.8 Manual Conductivity: 13.7 Manual Ph: 7 Bleach Test (Neg): Yes Bath Temperature: 36 C (96.8 F) Conductivity Meter Serial #: [id number] Machine Functioning Alarm Free? Yes Dialysis Bath: [...] Other (Comment) (to inform patient arrival from [place] emergency room and need for orders) Provider [...] Active Problem List Diagnosis Anemia Paroxysmal A-fib ([facility]) ([facility]) HTN (hypertension) ESRD on hemodialysis ([facility]) ([facility]) IgA nephropathy determined by biopsy of [...] Acute respiratory failure with hypoxia ([facility]) [J96.01] Tracheostomy care ([facility]) [Z43.0] Pulmonary embolism (HCC) terminal clerk (current) use of antibiotics Complication of tracheostomy (CMS/HCC) (HCC) BRBPR (bright red blood per rectum) Hemoptysis SOB (shortness of breath) Moderate malnutrition (CMS/HCC) ([facility]) [3] [facility] 03-15-2025 Consult note Associated Order (s): IP CONSULT TO DIETITIAN See dietitian eval dated 03/14/25. Pt tolerating diet well, was started on ensure plus HP BID during admission. Will continue to monitor labs, meds, po intakes and/or enteral nutrition tolerance, skin integrity, wt trends, and overall nutrition status - RD to follow weekly Yasemin Ceron MS, RD, LD Clinical Dietitian Contact: or [employer] Chat (dial *[phone] from hospital phone) [facility] 03-15-2025 Plan of care note Problem: [...] Interventions Goal: Assess Nutritional Intake Outcome: Progressing [facility] 03-15-2025 Note Formatting of this n ote might be different from the original. Care Management Progress Note Cardiology following. Pt in A flutter, trying rate control. Has wound vac on sacral area. Pt is refusing surgery. When stable is a bed hold at [facility]. . Length of Stay (Days): 2 GMLOS: No GMLOS Documented [facility] 03-15-2025 Note Formatting of this n ote might be different from the original. Care Management Progress Note Cardiology following. Pt in A flutter, trying rate control. Has wound vac on sacral area. Pt is refusing surgery. When stable is a bed hold at [facility]. . Length of Stay (Days): 2 GMLOS: No GMLOS Documented [facility] 03-15-2025 Nurse Note Wound Care consulted for Pressure Injury Prevention. Pt's Kee score= 14 on 03/13 Pt's pressure points assessed. Pt's Heels, Back, Elbows, Occiput and ears all intact. Harold and healed area noted to occiput. Pt moving lower extremities well in bed against gravity. Pt currently followed by Wound PACKAGE DELIVERY DRIVER group for wounds to left toes 1-4 and sacrum with wound vac in place. For left toes, sacrum, and sacral wound vac assessments and treatment plan, please see Wound/Ostomy PACKAGE DELIVERY DRIVER progress notes. Instructed pt on pressure injury prevention and importance of turning/postioning every 2hrs while in bed and every 15 min while sitting in chair. Instructed on use and care of waffle chair cushion. Verbalized understanding. Prevention Measures in place, including: Fontana sheet with pillows/wedges, Heels elevated off bed on pillows, Zinc/Moisture Barrier ointment (obtained), Waffle chair cushion (obtained for pt). Skin Care precaution order set in place. Dietitian consult order placed d/t wounds. PT/OT consult in place. Will continue to follow pt. Please Vocera for any questions or concerns. Yari Pelletier RN [facility] 03-15-2025 Plan of care note Problem: Knowledge Deficit Goal: Patient/family/caregiver demonstrates understanding of disease process, treatment plan, medications, and discharge instructions Outcome: Progressing Problem: Problem Interventions Goal: Assess Nutritional Intake Outcome: Progressing [facility] 03-14-2025 Plan of care note Problem: [...] Interventions Goal: Assess Nutritional Intake Outcome: Progressing [facility] 03-14-2025 Consult note Associated Order (s): [...] ascites and omental edema in upper abdomen.) Autocad Strength: Not Performed Chief Complaint Patient presents with Shortness of Breath Pt arrived from assisted via EMS. Pt was starting dialysis and [...] On: Kcal/kg Weight Used for Energy Requirements: Universal Weight for Energy Calculation (kg): 75 kg Total Energy Requirements (kcals/day): 8503-1916 (25-30 kcals/kg) Weight Used for Protein Requirements: Universal Weight in Kg Used for Protein Requirements: [...] TSH 6.88 (H) 03/13/2025 FREET4 0.89 03/15/2025 [id number] 959 (H) 10/22/2019 FOLATE 9.2 10/22/2019 FERRITIN [...] for updated dry wt - per nephro) Universal Body Weight (lbs) (Calculated): 166 lbs Universal Body Weight (Kg) (Calculated): 75 kg % Universal Body Weight (Calculated): 88.6 % BMI (kg/m2) [...] Yasemin Ceron MS, RD, LD Contact: or Collexpo (dial *[phone] from hospital phone) [1] Past Medical History: Diagnosis Date Acute renal failure (ARF) ([facility]) 10/19/2019 Anemia 12/30/2021 Calcification of abdominal aorta ([facility]) 10/08/202309/[address] abd Diverticulosis 10/08/2023 ESRD on hemodialysis ([facility]) ([facility]) 10/26/2019 Hemodialysis patient ([facility]) ([facility]) HTN (hypertension) 12/01/2022 Hypertension IgA nephropathy IgA nephropathy determined by biopsy of kidney 10/26/2019 Missed vaccination due to patient refusal 10/08/2023 Has a number of non-scientific based beliefs which interfere with his understanding and acceptance of the medical benefit of vaccination. Nonrheumatic aortic valve stenosis 10/08/2023 Paroxysmal A-fib ([facility]) ([facility]) 08/18/2023 Tobacco abuse 10/08/2023 [2] Past [...] Daily warfarin, 2.5 mg, Oral, Once [4] [facility] 03-14-2025 Hospital Discharg elder Jones RN - 03/14/2025 2:19 PM EDT My Heart Failure Action Plan Use the below chart as a guide for daily symptom monitoring after you obtain your morning weight. My Remedial Reading Teacher: Dr. Shah [facility] Cardiology at [facility] [phone] My Rn Compliance: [facility] [address] [place] [address] My Diagnosis: Heart failure with [...] 5 pounds in a week Call your Rn Compliance/Dialysis center!! My Diet Goal: General diet recommendations [...] Acute respiratory failure with hypoxia ([facility]) [J96.01] Tracheostomy care ([facility]) [Z43.0] Pulmonary embolism ([facility]) alf (current) use of antibiotics Complication of tracheostomy [...] (70.3 kg) Mental Status: {ROSENDO Patient Mental Status:10146} IV Access: {ROSENDO IV Access:88479} Nursing Mobility/ADLs: Walking {CHRISTY ADL:23347::"Independent"} Transfer {CHRISTY ADL:39288::"Independent"} Bathing {CHRISTY ADL:::"Independent"} Dressing {CHRISTY ADL:::"Independent"} Toileting {CHRISTY ADL:::"Independent"} Feeding {CHRISTY ADL:::"Independent"} Twister Tender {CHRISTY ADL:::"Independent"} Med Delivery {yes/no:04310} Wound Care Documentation and Therapy: Wound/Incision 11/13/24 Pressure Injury Sacrum (Active) Site Assessment Red;Harold 03/21/25 0402 Mahnaz-Wound Assessment Harold 03/13/251999 Drainage Description Sanguineous 03/13/251999 Odor Malodorous/putrid [...] Site Assessment Black;Painful 03/21/25 0402 Mahnaz-Wound Assessment Harold 03/21/25 0402 Odor None 03/18/25 1500 Drainage [...] Number of days: 7 Elimination: Continence: Bowel: {yes/no:71669} Bladder: {yes/no:32881} Urinary Catheter: {ROSENDO Urinary Catheter:29120} Colostomy/Ileostomy/Ileal Conduit: {YES / NO:} Date of Last BM: Intake/Output Summary (Last 24 hours) at 03/21/2025 1206 Last data filed at 03/20/2025 1523 Gross per 24 hour Intake 300 ml Output -- Net 300 ml I/O last 3 completed shifts: In: 1338.9 (19 mL/kg) [P.O.:240; I.V.:1098.9 (15.6 mL/kg)] Out: - (0 mL/kg) Weight: 70.3 kg Safety Concerns: {ROSENDO Safety Concerns:13459} Impairments/Disabilities: {ROSENDO Impairments/Disabilities:11269} Nutrition Therapy: Current Nutrition Therapy: {ROSENDO Diet List:15094} Routes of Feeding: {routes of feedin} Liquids: {liquid consistency:35360} Daily Fluid Restriction: {daily fluid restriction:09211} Last Modified Barium Swallow with Video (Video Swallowing Test): {done not done:12483} Treatments at the Time of Hospital Discharge: Respiratory Treatments: Oxygen Therapy: {Therapy; copd oxygen:06874} Ventilator: {ROSENDO Ventilator:12130} Rehab Therapies: {GEN THERAPY DISCIPLINE SCAL:0521933} Weight Bearing Status/Restrictions: {POD WEIGHT BEARIN} Other Medical Equipment (for information only, NOT a DME order): {Assistive Devices DME:72489} Other Treatments: Patient's personal belongings (please select all that are sent with patient): {ROSENDO Patient Belongings:09982} RN SIGNATURE: {E-signature:38565} CASE MANAGEMENT/SOCIAL WORK SECTION Inpatient Status Date: 02-10-25 Discharging to Facility/ Agency Name: [facility] Address:[address] [place] [address] Fax: Dialysis Facility (if applicable) Name: Address: Dialysis Schedule: Phone: Fax: Aws Architect/Lithostripper signature: ICIAN SECTION Name: Jun Snyder Prognosis: fair Condition at Discharge: stable Rehab Potential (if transferring to Rehab): fair Recommended Labs or Other Treatments After Discharge: none The individual is being admitted to a nursing facility directly from an [facility] or a unit of a hospital that is not operated by or licensed by [facility] under section 5119.14 or 5160-3-15.1 5 [...] H&P PHYSICIAN SIGNATURE: documented in this encounter [facility] 03-14-2025 Nurse Note Patient Name: Jun Snyder Patient : 1965 Acct: [id number] Date of Admission: 03/13/2025 Room/Bed: [facility] A Code Status: Full Code Allergies: [...] - Before each treatment: Dialysis Machine No.: [id number] RO Machine Number: [id number] Dialyzer Lot No.: [id number] Tubing Lot Number: [id number] All Connections Secure: Yes Venous Parameters Set: Yes Arterial Parameters Set: Yes NS Bag: Yes Saline Line Double Clamped: Yes Dialyzer: Nipro Prime Volume (mL): 200 mL RO Machine Number: [id number] RO Machine Log Sheet Completed: Yes Machine Alarm Self Test: Completed, Passed (03/14/25 1135) Air Foam Detector: Tested, Proper Function, pH Reading Extracorporeal Circuit Tested for Integrity: Yes Machine Conductivity: 13.7 Manual Conductivity: 13.6 Manual Ph: 7 Bleach Test (Neg): Yes Bath Temperature: 36 C (96.8 F) Conductivity Meter Serial #: [id number] Machine Functioning Alarm Free? Yes Dialysis Bath: K+ (Potassium): 3 Ca+ (Calcium): 2.5 Na+ (Sodium): 135 HCO3 (Bicarb): 35 Chlorine Testing - Before each treatment and every 4 hours: Time On: 1237 Time Off: 1537 Treatment Goal: 1L Weight Height: 177.8 cm (5' 10") (03/13/25 1654) Weight: 66.8 kg (147 lb 3.2 oz) (03/14/25 032) BMI (Calculated): 21.12 (03/14/25 0323) 1st check: [...] Other (Comment) (to inform patient arrival from [place] [facility] room and need for orders) Provider Name: dr sanon Provider Role: Attending physician Method of Communication: Secure chat Response: At bedside Provider Role: Attending physician Method of Communication: Secure chat Response: At bedside Handoff complete and report given to Primary RN at 0339. Primary RN (First Initial, Last Name, Title): [...] Active Problem List Diagnosis Anemia Paroxysmal A-fib ([facility]) ([facility]) HTN (hypertension) ESRD on hemodialysis ([facility]) ([facility]) IgA nephropathy determined by biopsy of kidney Diverticulosis Nonrheumatic aortic valve stenosis Calcification of abdominal aorta ([facility]) Missed vaccination due to patient refusal Tobacco abuse Alcohol use disorder in remission Atrial flutter, unspecified type ([facility]) RSV (acute bronchiolitis due to respiratory syncytial virus) Aortic stenosis Upper GI bleed S/P AVR Acute hypoxic respiratory failure ([facility]) Acute encephalopathy Pneumoperitoneum Gastric ulceration Severe malnutrition ([facility]) ([facility]) Pleural effusion Peritonitis due to fungus ([facility]) History of abdominal surgery Leg DVT (deep venous thromboembolism), acute, left ([facility]) Ischemic ulcer of toe of left foot, limited to breakdown of skin ([facility]) Tracheostomy dependence ([facility]) Leukocytosis Decubitus ulcer of sacral region, unstageable ([facility]) Pneumonia of both lungs due to methicillin susceptible Staphylococcus aureus (MSSA) (HCC) Sacral osteomyelitis (CMS/HCC) (HCC) Acute respiratory failure with hypoxia ([facility]) [J96.01] Tracheostomy care ([facility]) [Z43.0] Pulmonary embolism ([facility]) terminal clerk (current) use of antibiotics Complication of tracheostomy (CMS/HCC) (HCC) BRBPR (bright red blood per rectum) Hemoptysis SOB (shortness of breath) [3] [facility] 03-14-2025 Consult note Formatting of th is note is different from the original. [facility] Nephrology Consult Note Consults HPI Jun is [...] PPD, tapered down to 1 PPD in 2021 after quitting drinking. 10/27/24 Vaping Use Vaping [...] 0 min Stress: Stress Concern Present (02/21/2025) [facility] - Occupational Stress Questionnaire Feeling of Stress : To some extent Social Connections: Unknown (02/21/2025) Social Connection and Isolation Panel [NHANES] Frequency of Communication with Friends and Family: More than three times a week Frequency of Social Gatherings with Friends and Family: Patient declined Attends Baptism Services: Patient declined Active Member of Clubs [...] and sacral wound. Please message me through [employer] chat with any questions or concerns. Wellington Nicole MD 03/14/2025 10:43 AM [facility] [address] [place] [address], [address] [place] [address] Office: [phone] [1] Past Medical History: Diagnosis Date Acute renal failure (ARF) ([facility]) 10/19/2019 Anemia 12/30/2021 Calcification of abdominal aorta ([facility]) 10/08/202309/[address] abd Diverticulosis 10/08/2023 ESRD on hemodialysis ([facility]) ([facility]) 10/26/2019 Hemodialysis patient ([facility]) ([facility]) HTN (hypertension) 12/01/2022 Hypertension IgA nephropathy IgA nephropathy determined by biopsy of kidney 10/26/2019 Missed vaccination due to patient refusal 10/08/2023 Has a number of non-scientific based beliefs which interfere with his understanding and acceptance of the medical benefit of vaccination. Nonrheumatic aortic valve stenosis 10/08/2023 Paroxysmal A-fib ([facility]) (HCC) 08/18/2023 Tobacco abuse 10/08/2023 [2] Family [...] ODT OR ondansetron, polyethylene glycol (PEG) [address]50 [facility] 03-14-2025 Note Formatting of this n ote might be different from the original. Care Management Progress Note Pt was sent to ER from dialysis due to shortness of breath. Needs PVR of BLE. Nephrology, Vascular and therapies are following. Wants to return to [facility]. Is a bed hold, but if they can skill him they would like to.. Length of Stay (Days): 1 GMLOS: No GMLOS Documented [facility] 03-14-2025 Note Formatting of this n ote might be different from the original. Care Management Progress Note Pt was sent to ER from dialysis due to shortness of breath. Needs PVR of BLE. Nephrology, Vascular and therapies are following. Wants to return to [facility]. Is a bed hold, but if they can skill him they would like to.. Length of Stay (Days): 1 GMLOS: No GMLOS Documented [facility] 03-14-2025 Consult note Associated Order (s): IP CONSULT TO CARDIOLOGY [facility] Cardiology /Electrophysiology Consult Note Reason for Consult/Chief Complaint: Volume overload, afib rvr Referring provider: Dr Kidd Established customer care coordinator: Dr Shah History of Present Illness: Jun [...] to select rehab. He recently was at [facility] for Klebsiella pneumonia, hemoptysis and lung [...] of Cardiovascular Disease, Division of Heart Failure [facility] 3:25 PM 03/14/25 [facility] Work Phone: 03-14-2025 Consult note Associated Order (s): INPATIENT CONSULT TO WOUND CARE PROVIDERS Images from the original note were not included. [facility] Wound VAC CONSULT Note Jun [...] apply Betadine and allow to dry, leave SHEET ROCK TAPER daily and PRN Nutritional support Wound Care to follow Recommend to follow up at [facility] wound care center after hospital discharge. [...] Date Acute renal failure (ARF) ([facility]) 10/19/2019 Anemia 12/30/2021 Calcification of abdominal aorta ([facility]) 10/08/202309/[address] abd Diverticulosis 10/08/2023 ESRD on hemodialysis ([facility]) ([facility]) 10/26/2019 Hemodialysis patient ([facility]) ([facility]) HTN (hypertension) 12/01/2022 Hypertension IgA nephropathy [...] CARDIAC CATHETERIZATION Bilateral 11/01/2024 Performed by Bob Watsno MD at [facility] Cardiac Cath/EP [...] Gill DO at 03/19/2025 4:44 PM EDT [facility] 03-14-2025 Note Formatting of this n ote might be different from the original. Referral placed to [facility] via [facility] per TCC request. Await review and response regarding ability to accept. TCC notified. Electronically signed by [facility] Sabino Rodrigues T [facility] 03-14-2025 Note Formatting of this n ote might be different from the original. Referral placed to [facility] via [facility] per TCC request. Await review and response regarding ability to accept. TCC notified. Electronically signed by [facility] Sabino Rodrigues [facility] 03-14-2025 Note Referral placed to [facility] via [facility] per TCC request. Await review and response regarding ability to accept. TCC notified. Electronically signed by [facility] Plan of care note Problem: Knowledge Deficit Goal: Patient/family/caregiver demonstrates understanding of disease process, treatment plan, medications, and discharge instructions Outcome: Progressing Problem: Potential for Compromised Skin Integrity Goal: Skin Integrity is Maintained or Improved Outcome: Progressing T [facility] 03-13-2025 Nurse Note Removed wound vac that patient arrived to 5w from ecf pictures of all wound taken on rover and saved to chart NSWto DSD applied to sacral wound T [facility] 03-13-2025 History and physical note USACS [...] Klebsiella pneumonia with lung abscess presented to [facility] ED with worsening shortness of breath. He [...] in upper abdomen He was transferred from [facility] ED to [facility] due to bed availability Past Medical [...] 0 min Stress: Stress Concern Present (02/21/2025) [facility] - Occupational Stress Questionnaire Feeling of Stress : To some extent Social Connections: Unknown (02/21/2025) Social Connection and Isolation Panel [NHANES] Frequency of Communication with Friends and Family: More than three times a week Frequency of Social Gatherings with Friends and Family: Patient declined Attends Baptism Services: Patient declined Active Member of Clubs [...] made to ensure accuracy; however, inadvertent computerized senior controls technician errors may be present. Rubi Sanon MD,MD Division of Hospitalist Medicine [facility] Please forward a copy of this H&P to the patient's PCP. Thank you. Electronically signed by Rubi Sanon MD at 5:11 PM [1] Past Medical History: Diagnosis Date Acute renal failure (ARF) ([facility]) 10/19/2019 Anemia 12/30/2021 Calcification of abdominal aorta ([facility]) 10/08/202309/[address] abd Diverticulosis 10/08/2023 ESRD on hemodialysis ([facility]) ([facility]) 10/26/2019 Hemodialysis patient ([facility]) ([facility]) HTN (hypertension) 12/01/2022 Hypertension IgA nephropathy IgA nephropathy determined by biopsy of kidney 10/26/2019 Missed vaccination due to patient refusal 10/08/2023 Has a number of non-scientific based beliefs which interfere with his understanding and acceptance of the medical benefit of vaccination. Nonrheumatic aortic valve stenosis 10/08/2023 Paroxysmal A-fib ([facility]) ([facility]) 08/18/2023 Tobacco abuse 10/08/2023 [2] Past [...] Allergies Allergen Reactions Lisinopril Swelling and Angioedema [facility] 03-13-2025 Note [facility] 03-13-2025 History and physical note [place] Attending History and Physical Admit Date: 03/13/2025 [...] Klebsiella pneumonia with lung abscess presented to [facility] ED with worsening shortness of breath. He [...] in upper abdomen He was transferred from [facility] to [facility] due to bed availability Past Medical [...] 0 min Stress: Stress Concern Present (02/21/2025) [facility] - Occupational Stress Questionnaire Feeling of Stress : To some extent Social Connections: Unknown (02/21/2025) Social Connection and Isolation Panel [NHANES] Frequency of Communication with Friends and Family: More than three times a week Frequency of Social Gatherings with Friends and Family: Patient declined Attends Baptism Services: Patient declined Active Member of Clubs [...] made to ensure accuracy; however, inadvertent computerized senior controls technician errors may be present. Rubi Sanon MD,MD Division of Hospitalist Medicine [facility] Please forward a copy of this H&P to the patient's PCP. Thank you. Electronically signed by Rubi Sanon MD at 5:11 PM [1] Past Medical History: Diagnosis Date Acute renal failure (ARF) ([facility]) 10/19/2019 Anemia 12/30/2021 Calcification of abdominal aorta ([facility]) 10/08/202309/[address] abd Diverticulosis 10/08/2023 ESRD on hemodialysis ([facility]) ([facility]) 10/26/2019 Hemodialysis patient ([facility]) ([facility]) HTN (hypertension) 12/01/2022 Hypertension IgA nephropathy IgA nephropathy determined by biopsy of kidney 10/26/2019 Missed vaccination due to patient refusal 10/08/2023 Has a number of non-scientific based beliefs which interfere with his understanding and acceptance of the medical benefit of vaccination. Nonrheumatic aortic valve stenosis 10/08/2023 Paroxysmal A-fib ([facility]) ([facility]) 08/18/2023 Tobacco abuse 10/08/2023 [2] Past [...] PROCEDURES IR FISTULAGRAM 08/07/2022 IR FISTULAGRAM 08/07/2022 [facility] IR IMAGING TONSILLECTOMY (HISTORICAL) [3] Family History Problem Relation Name Age of Onset No Known Problems Mother No Known Problems Father [4] No current facility-administered medications for this encounter. [5] Allergies Allergen Reactions Lisinopril Swelling and Angioedema documented in this encounter [facility] 03-13-2025 Emergency department Note When this RN came back from lunch Pt was already taken to [facility] by Consuelo Day. RN covering my lunch called report to RN at [facility]. [facility] 03-13-2025 Emergency department Note When this RN came back from lunch Pt was already taken to [facility] by Consuelo Day. RN covering my lunch called report to RN [facility]. Called report to SWEETIE Linder at 5W. Consuelo Johnson at bedside to transport patient to [facility]. Emergency Department Encounter Pt Name: Jun Snyder Birthdate 1965 Date of evaluation: 03/13/2025 Provider: Keiry Solares MD CHIEF COMPLAINT Chief Complaint Patient presents with Shortness of Breath Pt arrived from assisted via EMS. Pt was starting dialysis and [...] Response: Oriented Best Motor Response: Follows commands [place] Coma Scale Score: 15 EMERGENCY DEPARTMENT COURSE [...] Hoffman, due to no available beds at [facility] and available beds at [facility] patient wishes to be transferred. I discussed the case with Dr. Sanon at [facility] who accepts patient for transfer. Chronic conditions and social determinants of health affecting care: atrial fibrillation, ESRD DISPOSITION/PLAN Admit 03/13/2025 02:55:43 PM Keiry Solares MD Emergency Medicine [1] Past Medical History: Diagnosis Date Acute renal failure (ARF) ([facility]) 10/19/2019 Anemia 12/30/2021 Calcification of abdominal aorta ([facility]) 10/08/202309/[address] abd Diverticulosis 10/08/2023 ESRD on hemodialysis ([facility]) ([facility]) 10/26/2019 Hemodialysis patient ([facility]) ([facility]) HTN (hypertension) 12/01/2022 Hypertension IgA nephropathy IgA nephropathy determined by biopsy of kidney 10/26/2019 Missed vaccination due to patient refusal 10/08/2023 Has a number of non-scientific based beliefs which interfere with his understanding and acceptance of the medical benefit of vaccination. Nonrheumatic aortic valve stenosis 10/08/2023 Paroxysmal A-fib ([facility]) ([facility]) 08/18/2023 Tobacco abuse 10/08/2023 Keiry Solares MD 03/13/252115 documented in this encounter [facility] 03-13-2025 Emergency department Note Called report to SWEETIE Linder at 5W. [facility] 03-13-2025 Emergency department Note Consuelo Johnson at bedside to transport patient to [facility]. [facility] 03-13-2025 Physician Emergen cy department Note Emergency Department Encounter Pt Name: Jun Snyder Birthdate 1965 Date of evaluation: 03/13/2025 Provider: Keiry Solares MD CHIEF COMPLAINT Chief Complaint Patient presents with Shortness of Breath Pt arrived from assisted via EMS. Pt was starting dialysis and [...] Response: Oriented Best Motor Response: Follows commands [place] Coma Scale Score: 15 EMERGENCY DEPARTMENT COURSE [...] Hoffman, due to no available beds at [facility] and available beds at [facility] patient wishes to be transferred. I discussed the case with Dr. Sanon at [facility] who accepts patient for transfer. Chronic conditions and social determinants of health affecting care: atrial fibrillation, ESRD DISPOSITION/PLAN Admit 03/13/2025 02:55:43 PM Keiry Solares MD Emergency Medicine [1] Past Medical History: Diagnosis Date Acute renal failure (ARF) ([facility]) 10/19/2019 Anemia 12/30/2021 Calcification of abdominal aorta ([facility]) 10/08/202309/[address] abd Diverticulosis 10/08/2023 ESRD on hemodialysis ([facility]) ([facility]) 10/26/2019 Hemodialysis patient ([facility]) ([facility]) HTN (hypertension) 12/01/2022 Hypertension IgA nephropathy IgA nephropathy determined by biopsy of kidney 10/26/2019 Missed vaccination due to patient refusal 10/08/2023 Has a number of non-scientific based beliefs which interfere with his understanding and acceptance of the medical benefit of vaccination. Nonrheumatic aortic valve stenosis 10/08/2023 Paroxysmal A-fib ([facility]) ([facility]) 08/18/2023 Tobacco abuse 10/08/2023 Keiry Solares MD 03/13/252115 [facility] 03-08-2025 History of Presen t illness Narrative Pt was followed by the Palliative Care Team during hospitalization at [facility]. Provider is recommending continued Palliative follow up in the community. [facility], faxed info to [phone] documented in this encounter [facility] 03-08-2025 Telephone encount er Note 2nd attempt called and spoke to the Alyssa the Nurse for the patient at the facility he lives at. She states Sabino is the person who schedules the appointments and she is on vacation and wont be back till next Wednesday. I will try again next wednesday [facility] 03-08-2025 Miscellaneous Notes Formattin g of [...] this? Thank you documented in this encounter [facility] 03-05-2025 History of Presen t illness Narrative Images from the original note were not included. PHYSICAL THERAPY [facility] Treatment Note Name/MRN: Jair Snyder ([id number]) Date of : 1965 Age: 59 y.o. Room/Bed: W3-334/W3-334 A Discharge Recommendation: [facility] Facility Equipment Needed: (tbd) Assessment Increased time [...] any questions or concerns Bree Molina APRN VIDEO PRODUCTION ASSISTANT A-G PACKAGE DELIVERY DRIVER [facility] [phone] I reviewed with DOCUMENT CLERK-VIDEO PRODUCTION ASSISTANT the medical history and the findings on physical examination. I discussed the patient s diagnosis and concur with the treatment plan as documented in his note. Please call [phone] or message me through [employer] with any questions or concerns. [facility] Anticoagulation Management Service ([facility]) Inpatient Warfarin Consult HPI: Jun Snyder is a 59 y.o. male admitted on 02/20/2025 for Hemoptysis [R04.2]. Medical History[1] Patient is on warfarin for mechanical AVR and has a goal INR 2.0 - 3.0. Patient was referred to [facility], but so far has been managed at facilities, most recently [facility]. Pt's home dose of warfarin is [...] 1.8* Date INR Dose 03/05 1.8 7.5mg 8 1.5 7.5 mg 6 1.6 6 mg 03/02 1.4 5mg 03/01 [...] RPh [facility] Consult Service is available daily [phone] via [employer] Secure Chat. [1] Past Medical History: Diagnosis Date Acute renal failure (ARF) ([facility]) 10/19/2019 Anemia 12/30/2021 Calcification of abdominal aorta ([facility]) 10/08/202309/[address] abd Diverticulosis 10/08/2023 ESRD on hemodialysis ([facility]) ([facility]) 10/26/2019 Hemodialysis patient ([facility]) ([facility]) HTN (hypertension) 12/01/2022 Hypertension IgA nephropathy IgA nephropathy determined by biopsy of kidney 10/26/2019 Missed vaccination due to patient refusal 10/08/2023 Has a number of non-scientific based beliefs which interfere with his understanding and acceptance of the medical benefit of vaccination. Nonrheumatic aortic valve stenosis 10/08/2023 Paroxysmal A-fib ([facility]) ([facility]) 08/18/2023 Tobacco abuse 10/08/2023 Hospitalist Progress Note - [facility] - [employer] [facility] [employer] ([place]) 03/05/2025 7:13 AM [phone]: Please page me for patient care issues. [phone]: Please page [facility] [place] for any issues. Subjective and Objective: Admit [...] was bright red and it stopped just BUSINESS UNIT MANAGER when in transport. Adult diet Regular [...] - (0 mL/kg) Weight: 60.8 kg @IODETAILS@ @[id number]@ Medications: Continuous Meds[1] Scheduled Meds[2] Recent Labs [...] "CHOL" No results found for: "PHART", "PO2ART", "OAF4JFS" Recent Labs 03/04/25 0156 03/04/25 0946 03/05/25 [...] for discharge - Location - [facility] ([facility]) - Pending the following - dispo, [...] DO Division of Hospitalist Medicine Inpatient Medical Services/[place] [1] heparin, 5-30 Units/kg/hr, Last Rate: 21 [...] PHYSICAL THERAPY [facility] Name/MRN: Jair Snyder ([id number]) Date: 03/04/2025 Attempted to initiate PT this date; upon arrival, patient states he is needs to have a bowel movement and does not want to do PT. Offered to ambulate patient to bathroom or use of a bedpan however patient declines. Will continue to follow. Emily Stanley PTA Cosigned by Darryn Tay PT at 03/04/2025 3:38 PM EDT Hospitalist Progress Note - [facility] - [employer] [facility] [employer] ([employer]) 03/04/2025 9:11 AM [phone]: Please page me for patient care issues. [phone]: Please page [facility] [place] for any issues. Subjective and Objective: Admit [...] was bright red and it stopped just BUSINESS UNIT MANAGER when in transport. Adult diet Regular [...] - (0 mL/kg) Weight: 60.8 kg @IODETAILS@ @[id number]@ Medications: Continuous Meds[1] Scheduled Meds[2] Recent Labs [...] "CHOL" No results found for: "PHART", "PO2ART", "[id number]" Recent Labs 03/02/25 0004 03/03/25 0212 03/04/25 [...] - 03/04 - Location - [facility] ([facility]) - Pending the following - [...] DO Division of Hospitalist Medicine Inpatient Medical Services/[place] [1] heparin, 5-30 Units/kg/hr, Last Rate: 20 [...] electrolyte and CBC daily Maryam Marcelo DO [facility] Anticoagulation Management Service ([facility]) Inpatient Warfarin Consult HPI: Jun Snyder is a 59 y.o. male admitted on 02/20/2025 for Hemoptysis [R04.2]. Medical History[1] Patient is on warfarin for mechanical AVR and has a goal INR 2.0 - 3.0. Patient was referred to [facility], but so far has been managed at facilities, most recently [facility]. Pt's home dose of warfarin is [...] 03/03 1.6 6 mg 03/02 1.4 5mg 6/ [...] PharmD [facility] Consult Service is available daily [phone] via [employer] Secure Chat. [1] Past Medical History: Diagnosis Date Acute renal failure (ARF) ([facility]) 10/19/2019 Anemia 12/30/2021 Calcification of abdominal aorta ([facility]) 10/08/202309/[address] abd Diverticulosis 10/08/2023 ESRD on hemodialysis ([facility]) ([facility]) 10/26/2019 Hemodialysis patient ([facility]) ([facility]) HTN (hypertension) 12/01/2022 Hypertension IgA nephropathy IgA nephropathy determined by biopsy of kidney 10/26/2019 Missed vaccination due to patient refusal 10/08/2023 Has a number of non-scientific based beliefs which interfere with his understanding and acceptance of the medical benefit of vaccination. Nonrheumatic aortic valve stenosis 10/08/2023 Paroxysmal A-fib ([facility]) ([facility]) 08/18/2023 Tobacco abuse 10/08/2023 Hospitalist Progress Note - [facility] - [employer] [facility] [employer] ([place]) 03/03/2025 8:37 AM [phone]: Please page me for patient care issues. [phone]: Please page [facility] [place] for any issues. Subjective and Objective: Admit [...] was bright red and it stopped just BUSINESS UNIT MANAGER when in transport. Adult diet Regular [...] (0.4 mL/kg) [Drains:25] Weight: 60.8 kg @IODETAILS@ @[id number]@ Medications: Continuous Meds[1] Scheduled Meds[2] Recent Labs [...] "CHOL" No results found for: "PHART", "PO2ART", "[id number]" Recent Labs 03/01/25 0003 03/02/25 0004 03/03/25 [...] arm fistula Running Summary, Assessment, and Plan Jiar is a 59 year old male with [...] - 03/04 - Location - [facility] ([facility]) - Pending the following - [...] DO Division of Hospitalist Medicine Inpatient Medical Services/[place] [1] heparin, 5-30 Units/kg/hr, Last Rate: 20 [...] any questions or concerns Bree Molina APRN VIDEO PRODUCTION ASSISTANT A-G PACKAGE DELIVERY DRIVER [facility] [phone] Pt seen and examined independently by me. I reviewed with DENIA-VIDEO PRODUCTION ASSISTANT the medical history and the findings on physical examination. I discussed the patient s diagnosis and concur with the treatment plan as documented in his note. Please call [phone] or message me through [employer] with any questions or concerns. Hospitalist Progress Note - [facility] - [employer] [facility] [employer] ([place]) 03/02/2025 8:20 AM [phone]: Please page me for patient care issues. [phone]: Please page [facility] [place] for any issues. Subjective and Objective: Admit [...] was bright red and it stopped just BUSINESS UNIT MANAGER when in transport. Adult diet Regular [...] (0.7 mL/kg) [Drains:40] Weight: 60.8 kg @IODETAILS@ @[id number]@ Medications: Continuous Meds[1] Scheduled Meds[2] Recent Labs [...] "CHOL" No results found for: "PHART", "PO2ART", "[id number]" Recent Labs 02/28/25 0004 03/01/25 0003 03/02/25 [...] - 03/03 - Location - [facility] ([facility]) - Pending the following - [...] DO Division of Hospitalist Medicine Inpatient Medical Services/[place] [1] heparin, 5-30 Units/kg/hr, Last Rate: 19 Units/kg/hr (03/02/25 0813) [2] B complex-vitamin C-folic acid, 1 capsule, Oral, Daily metoprolol tartrate, 25 mg, Oral, BID pantoprazole, 40 mg, Oral, BID AC piperacillin-tazobactam, 2,250 mg, IntraVENous, q6h QUEtiapine, 25 mg, Oral, Nightly sevelamer carbonate, 800 mg, Oral, TID WC warfarin, 5 mg, Oral, Once [facility] Anticoagulation Management Service ([facility]) Inpatient Warfarin Consult HPI: Jun Snyder is a 59 y.o. male admitted on 02/20/2025 for Hemoptysis [R04.2]. Medical History[1] Patient is on warfarin for mechanical AVR and has a goal INR 2.0 - 3.0. Patient was referred to [facility], but so far has been managed at facilities, most recently [facility]. Pt's home dose of warfarin is [...] 1.4* Date INR Dose 6/5 1.4 5mg 6/5 1.4 4mg 6/4 1.3 3mg 6/3 1.3 2mg 6/2 1.3 1.5mg 6/1 1.3 1 mg 5/31 1.3 1 mg 02/23 1.3 HOLD 02/22 [...] when discharged from facility. Fatuma Odonnell RPh [facility] Consult Service is available daily [phone] via [employer] Secure Chat. [1] Past Medical History: Diagnosis Date Acute renal failure (ARF) ([facility]) 10/19/2019 Anemia 12/30/2021 Calcification of abdominal aorta ([facility]) 10/08/202309/[address] abd Diverticulosis 10/08/2023 ESRD on hemodialysis ([facility]) ([facility]) 10/26/2019 Hemodialysis patient ([facility]) ([facility]) HTN (hypertension) 12/01/2022 Hypertension IgA nephropathy IgA nephropathy determined by biopsy of kidney 10/26/2019 Missed vaccination due to patient refusal 10/08/2023 Has a number of non-scientific based beliefs which interfere with his understanding and acceptance of the medical benefit of vaccination. Nonrheumatic aortic valve stenosis 10/08/2023 Paroxysmal A-fib ([facility]) ([facility]) 08/18/2023 Tobacco abuse 10/08/2023 Images from the original note were not included. PHYSICAL THERAPY [facility] Treatment Note Name/MRN: Jair Snyder ([id number]) Date of : 1965 Age: 59 y.o. Room/Bed: W3-334/W3-334 A Discharge Recommendation: [facility] Facility Equipment Needed: No Assessment Good distance, [...] Raw Score (No Stairs) : 15 JH-HLM -M Score: Walked 25 ft or more (i.e. [...] Timed Code Treatment Minutes: (gt-fa) Merlene León, BUSINESS UNIT MANAGER Cosigned by Anthony Black, PT at 03/01/2025 4:34 PM EDT Associated attestation - Anthony Black, PT - 03/01/2025 4:34 PM EDT Did not have opportunity today to speak to BUSINESS UNIT MANAGER re: recommendation. Mobility appears to be consistent with homegoing, but know that medical conditions and other factors clearly could influence recommendations. Images from the original note were not included. OCCUPATIONAL THERAPY [facility] Treatment Note Name/MRN: Jair Snyder ([id number]) Date of : 1965 Age: 59 y.o. Room/Bed: W3-334/W3-334 A Discharge Recommendation: [facility]it[facility]iary Facility Other: DME TBD at next level [...] with any questions or concerns Bree Molina DOCUMENT CLERK VIDEO PRODUCTION ASSISTANT A-G PACKAGE DELIVERY DRIVER [facility] [phone] Pt seen and examined independently by me. I reviewed with Jun Maki, the medical history and the findings on physical examination. I discussed the patient s diagnosis and concur with the treatment plan as documented in his note. Please call [phone] or message me through [employer] with any questions or concerns. Hospitalist Progress Note - [facility] - [employer] [facility] [employer] ([employer]) 03/01/2025 9:51 AM [phone]: Please page me for patient care issues. [phone]: Please page [facility] [place] for any issues. Subjective and Objective: Admit [...] was bright red and it stopped just BUSINESS UNIT MANAGER when in transport. Adult diet Regular Dietary Orders (From admission, onward) Start Ordered 02/27/25 1254 Supplement:Breakfast, Dinner; Nepro w/CARB Steady Until discontinued Question Answer Comment Frequency Breakfast Frequency Dinner Select supplement: Nepro w/CARB Steady 02/27/25 1254 02/21/25 1021 Adult diet Regular Diet effective now Question: Diet type Answer: Regular 02/21/25 1021 No intake/output data recorded. @IODETAILS@ @[id number]@ Medications: Continuous Meds[1] Scheduled Meds[2] Recent Labs [...] "CHOL" No results found for: "PHART", "PO2ART", "[id number]" Recent Labs 02/27/25 0010 02/28/25 0004 03/01/25 [...] 03/01 - 03/02 - Location - [facility] ([facility]) - Pending the following - INR [...] DO Division of Hospitalist Medicine Inpatient Medical Services/[place] [1] heparin, 5-30 Units/kg/hr, Last Rate: 18 [...] PHYSICAL THERAPY [facility] Name/MRN: Jair Snyder ([id number]) Date: 03/01/2025 Leaving for dialysis. Return later time/date for PT. Merlene León PTA Cosigned by Anthony Black PT at 03/01/2025 8:42 AM EDT [facility] Anticoagulation Management Service ([facility]) Inpatient Warfarin Consult HPI: Jun Snyder is a 59 y.o. male admitted on 02/20/2025 for Hemoptysis [R04.2]. Medical History[1] Patient is on warfarin for mechanical AVR and has a goal INR 2.0 - 3.0. Patient was referred to [facility], but so far has been managed at facilities, most recently [facility]. Pt's home dose of warfarin is [...] RPh [facility] Consult Service is available daily [phone] via [employer] Secure Chat. [1] Past Medical History: Diagnosis Date Acute renal failure (ARF) ([facility]) 10/19/2019 Anemia 12/30/2021 Calcification of abdominal aorta ([facility]) 10/08/202309/[address] abd Diverticulosis 10/08/2023 ESRD on hemodialysis ([facility]) ([facility]) 10/26/2019 Hemodialysis patient ([facility]) ([facility]) HTN (hypertension) 12/01/2022 Hypertension IgA nephropathy IgA nephropathy determined by biopsy of kidney 10/26/2019 Missed vaccination due to patient refusal 10/08/2023 Has a number of non-scientific based beliefs which interfere with his understanding and acceptance of the medical benefit of vaccination. Nonrheumatic aortic valve stenosis 10/08/2023 Paroxysmal A-fib ([facility]) ([facility]) 08/18/2023 Tobacco abuse 10/08/2023 Nephrology Progress [...] any questions or concerns Bree Molina APRN VIDEO PRODUCTION ASSISTANT A-G PACKAGE DELIVERY DRIVER [facility] [phone] Pt seen and examined independently by me. I reviewed with DOCUMENT CLERK-VIDEO PRODUCTION ASSISTANT the medical history and the findings on physical examination. I discussed the patient s diagnosis and concur with the treatment plan as documented in his note. Please call [phone] or message me through [employer] with any questions or concerns. Hospitalist Progress Note - [facility] - [employer] [facility] ([place]) 02/28/2025 8:23 AM [phone]: Please page me for patient care issues. [phone]: Please page [facility] [place] for any issues. Subjective and Objective: Admit [...] was bright red and it stopped just BUSINESS UNIT MANAGER when in transport. Adult diet Regular [...] [Urine:450 (0.2 mL/kg/hr)] Weight: 60.8 kg @IODETAILS@ @[id number]@ Medications: Continuous Meds[1] Scheduled Meds[2] Recent Labs [...] "CHOL" No results found for: "PHART", "PO2ART", "[id number]" Recent Labs 02/25/25 2345 02/27/25 0010 02/28/25 [...] - 03/02 - Location - [facility] ([facility]) - Pending the following - INR [...] DO Division of Hospitalist Medicine Inpatient Medical Services/[place] [1] heparin, 5-30 Units/kg/hr, Last Rate: 18 Units/kg/hr (02/28/25 0714) [2] B complex-vitamin C-folic acid, 1 capsule, Oral, Daily metoprolol tartrate, 25 mg, Oral, BID pantoprazole, 40 mg, Oral, qAM AC piperacillin-tazobactam, 4,500 mg, IntraVENous, q8h QUEtiapine, 25 mg, Oral, Nightly sevelamer carbonate, 800 mg, Oral, TID WC warfarin, 3 mg, Oral, Once Images from the original note were not included. [facility] Wound Care/[facility] Progress Note Jun [...] premedicated for pain with pain medication, per rn staffing, prior to wound VAC dressing change. Wet [...] apply Betadine and allow to dry, leave SHEET ROCK TAPER daily and PRN Left plantar heel - [...] to follow Recommend to follow up at [facility] Outpatient wound care center after [...] Date Acute renal failure (ARF) ([facility]) 10/19/2019 Anemia 12/30/2021 Calcification of abdominal aorta ([facility]) 10/08/202309/[address] abd Diverticulosis 10/08/2023 ESRD on hemodialysis ([facility]) ([facility]) 10/26/2019 Hemodialysis patient ([facility]) ([facility]) HTN (hypertension) 12/01/2022 Hypertension IgA nephropathy IgA nephropathy determined by biopsy of kidney 10/26/2019 Missed vaccination due to patient refusal 10/08/2023 Has a number of non-scientific based beliefs which interfere with his understanding and acceptance of the medical benefit of vaccination. Nonrheumatic aortic valve stenosis 10/08/2023 Paroxysmal A-fib ([facility]) ([facility]) 08/18/2023 Tobacco abuse 10/08/2023 [2] Past [...] PROCEDURES IR FISTULAGRAM 08/07/2022 IR FISTULAGRAM 08/07/2022 [facility] IR IMAGING TONSILLECTOMY (HISTORICAL) [3] [...] Gill DO at 03/01/2025 2:50 PM EDT [facility] Anticoagulation Management Service ([facility]) Inpatient Warfarin Consult HPI: Jun Snyder is a 59 y.o. male admitted on 02/20/2025 for Hemoptysis [R04.2]. Medical History[1] Patient is on warfarin for mechanical AVR and has a goal INR 2.0 - 3.0. Patient was referred to [facility], but so far has been managed at facilities, most recently [facility]. Pt's home dose of warfarin is [...] RPh [facility] Consult Service is available daily [phone] via [employer] Secure Chat. [1] Past Medical History: Diagnosis Date Acute renal failure (ARF) ([facility]) 10/19/2019 Anemia 12/30/2021 Calcification of abdominal aorta ([facility]) 10/08/202309/[address] abd Diverticulosis 10/08/2023 ESRD on hemodialysis ([facility]) ([facility]) 10/26/2019 Hemodialysis patient ([facility] ([facility]) HTN (hypertension) 12/01/2022 Hypertension IgA nephropathy IgA nephropathy determined by biopsy of kidney 10/26/2019 Missed vaccination due to patient refusal 10/08/2023 Has a number of non-scientific based beliefs which interfere with his understanding and acceptance of the medical benefit of vaccination. Nonrheumatic aortic valve stenosis 10/08/2023 Paroxysmal A-fib ([facility]) ([facility]) 08/18/2023 Tobacco abuse 10/08/2023 Nephrology Progress [...] [facility] - Infectious Diseases Attending [...] Total Energy Requirements (kcals/day): 30-35 kcal/kg = 5233-9794 kcal Weight Used for Protein Requirements: Current [...] lb) (08/28/24) % Weight Change (Calculated): -34.6 Universal Body Weight (lbs) (Calculated): 166 lbs Universal Body Weight (Kg) (Calculated): 75 kg % Universal Body Weight (Calculated): 81.1 % BMI (kg/m2) [...] to determine Glenys Juares RD, LD Contact: [phone] Images from the original note were not included. PHYSICAL THERAPY [facility] Name/MRN: Jair Snyder ([id number]) Date: 02/27/2025 Request for "see today" note, [...] Anthony Black PT Hospitalist Progress Note - [facility] - [employer] [facility] [employer] ([place]) 02/27/2025 9:03 AM [phone]: Please page me for patient care issues. [phone]: Please page [facility] [place] for any issues. Subjective and Objective: Admit [...] was bright red and it stopped just BUSINESS UNIT MANAGER when in transport. Adult diet Regular Dietary Orders (From admission, onward) Start Ordered 02/21/25 1021 Adult diet Regular Diet effective now Question: Diet type Answer: Regular 02/21/25 1021 I/O last 3 completed shifts: In: 750 (12.3 mL/kg) [P.O.:750] Out: 450 (7.4 mL/kg) [Urine:450 (0.2 mL/kg/hr)] Weight: 60.8 kg @IODETAILS@ @[id number]@ Medications: Continuous Meds[1] Scheduled Meds[2] Recent Labs [...] "CHOL" No results found for: "PHART", "PO2ART", "JKC2FCL" Recent Labs 02/25/25 0028 02/25/25 2345 02/27/25 [...] DO Division of Hospitalist Medicine Inpatient Medical Services/[place] [1] heparin, 5-30 Units/kg/hr, Last Rate: 18 Units/kg/hr (02/27/25 0722) [2] B complex-vitamin C-folic acid, 1 capsule, Oral, Daily metoprolol tartrate, 25 mg, Oral, BID pantoprazole, 40 mg, Oral, qAM AC piperacillin-tazobactam, 4,500 mg, IntraVENous, q8h QUEtiapine, 25 mg, Oral, Nightly sevelamer carbonate, 800 mg, Oral, TID WC warfarin, 2 mg, Oral, Once [facility] Anticoagulation Management Service ([facility]) Inpatient Warfarin Consult HPI: Jun Snyder is a 59 y.o. male admitted on 02/20/2025 for Hemoptysis [R04.2]. Medical History[1] Patient is on warfarin for mechanical AVR and has a goal INR 2.0 - 3.0. Patient was referred to [facility], but so far has been managed at facilities, most recently [facility]. Pt's home dose of warfarin is [...] discharged from facility. Fatuma Odonnell [facility] Consult Service is available daily [phone] via [employer] Secure Chat. [1] Past Medical History: Diagnosis Date Acute renal failure (ARF) ([facility]) 10/19/2019 Anemia 12/30/2021 Calcification of abdominal aorta ([facility]) 10/08/202309/[address] abd Diverticulosis 10/08/2023 ESRD on hemodialysis ([facility]) ([facility]) 10/26/2019 Hemodialysis patient ([facility]) ([facility]) HTN (hypertension) 12/01/2022 Hypertension IgA nephropathy IgA nephropathy determined by biopsy of kidney 10/26/2019 Missed vaccination due to patient refusal 10/08/2023 Has a number of non-scientific based beliefs which interfere with his understanding and acceptance of the medical benefit of vaccination. Nonrheumatic aortic valve stenosis 10/08/2023 Paroxysmal A-fib ([facility]) ([facility]) 08/18/2023 Tobacco abuse 10/08/2023 Images from the original note were not included. OCCUPATIONAL THERAPY [facility] Initial Evaluation Name/MRN: Jair Snyder ([id number]) Evaluation Date: 02/26/2025 Date of : 1965 Admission Date: 02/20/2025 5:41 PM Age: 59 y.o. Room/Bed: W3334/W3-334 A Discharge Recommendation: Penitentiary Facility Assessment IMPRESSION: Pt would benefit from [...] Problem List Diagnosis Date Noted Severe malnutrition ([facility]) ([facility]) 02/21/2025 Hemoptysis 02/20/2025 Complication of tracheostomy ([facility]) ([facility]) 01/19/2025 alf (current) use of antibiotics 01/12/2025 Acute respiratory failure with hypoxia ([facility]) [J96.01] 01/08/2025 Tracheostomy care ([facility]) [Z43.0] 01/08/2025 Pulmonary embolism ([facility]) 01/08/2025 Sacral osteomyelitis ([facility]) ([facility]) 01/03/2025 Pneumonia of both lungs due to methicillin susceptible Staphylococcus aureus (MSSA) ([facility]) 01/01/2025 Leukocytosis 12/30/2024 Decubitus ulcer of sacral region, unstageable ([facility]) 12/30/2024 Peritonitis due to fungus ([facility]) 11/30/2024 History of abdominal surgery 11/30/2024 Leg DVT (deep venous thromboembolism), acute, left ([facility]) 11/30/2024 Ischemic ulcer of toe of left foot, limited to breakdown of skin ([facility]) 11/30/2024 Tracheostomy dependence ([facility]) 11/30/2024 Pleural effusion 11/28/2024 Gastric ulceration 2024 Atrial flutter, unspecified type ([facility]) 10/03/2024 RSV (acute bronchiolitis due to respiratory syncytial virus) 10/03/2024 Diverticulosis 10/08/2023 Nonrheumatic aortic valve stenosis 10/08/2023 Calcification of abdominal aorta ([facility]) 10/08/2023 Missed vaccination due to patient refusal 10/08/2023 Tobacco abuse 10/08/2023 Alcohol use disorder in remission 10/08/2023 Paroxysmal A-fib ([facility]) ([facility]) 08/18/2023 HTN (hypertension) 12/01/2022 ESRD on hemodialysis ([facility]) ([facility]) 10/26/2019 IgA nephropathy determined by biopsy of kidney 10/26/2019 BRBPR (bright red blood per rectum) 01/19/2025 Aortic stenosis 10/03/2024 Upper GI bleed 10/03/2024 S/P AVR 10/03/2024 Acute hypoxic respiratory failure ([facility]) 10/03/2024 Acute encephalopathy 10/03/2024 Pneumoperitoneum 10/03/2024 [...] of Care supervision is transferred to a [facility] Therapy Services Occupational Therapist. Goals and/or treatment plan was established in collaboration with patient/family/other representatives. Ro Sales MS, OTR/L [1] Past Medical History: Diagnosis Date Acute renal failure (ARF) ([facility]) 10/19/2019 Anemia 12/30/2021 Calcification of abdominal aorta ([facility]) 10/08/202309/[address] abd Diverticulosis 10/08/2023 ESRD on hemodialysis ([facility]) ([facility]) 10/26/2019 Hemodialysis patient ([facility]) ([facility]) HTN (hypertension) 12/01/2022 Hypertension IgA nephropathy IgA nephropathy determined by biopsy of kidney 10/26/2019 Missed vaccination due to patient refusal 10/08/2023 Has a number of non-scientific based beliefs which interfere with his understanding and acceptance of the medical benefit of vaccination. Nonrheumatic aortic valve stenosis 10/08/2023 Paroxysmal A-fib ([facility]) ([facility]) 08/18/2023 Tobacco abuse 10/08/2023 [2] Past [...] PROCEDURES IR FISTULAGRAM 08/07/2022 IR FISTULAGRAM 08/07/2022 [facility] IR IMAGING TONSILLECTOMY (HISTORICAL) Hospitalist [...] bilateral pleural effusions. 5. Cholelithiasis, and diminutive match-e-be-nash-she-wish band kidneys. Seen by pulm service Started on [...] controlled No CP Adult diet Regular @IODETAILS@ @[email or web address]@ Medications: Continuous Meds[1] Scheduled Meds[2] Recent Labs [...] any questions or concerns Bree Molina APRN VIDEO PRODUCTION ASSISTANT A-G PACKAGE DELIVERY DRIVER [facility] [phone] Pt seen and examined independently by me. I reviewed with, DENIA-VIDEO PRODUCTION ASSISTANT the medical history and the findings on physical examination. I discussed the patient s diagnosis and concur with the treatment plan as documented in his note. Please call [phone] or message me through [employer] with any questions or concerns. PULMONOLOGY CONSULT [...] the original note were not included. [facility] Wound Care/NPWT Progress Note Jun [...] premedicated for pain with pain medication, per rn staffing, prior to wound VAC dressing change. Wet [...] apply Betadine and allow to dry, leave SHEET ROCK TAPER daily and PRN Left plantar heel - unstageable pressure injury (POA): -cleanse with NS, apply Betadine and allow to dry, leave SHEET ROCK TAPER daily and PRN Right wrist Abrasion: -cleanse with antibacterial soap/water, leave SHEET ROCK TAPER daily Sacral Stage 4 pressure injury (POA): [...] to follow Recommend to follow up at [facility] Outpatient wound care center after [...] Date Acute renal failure (ARF) ([facility]) 10/19/2019 Anemia 12/30/2021 Calcification of abdominal aorta ([facility]) 10/08/202309/[address] abd Diverticulosis 10/08/2023 ESRD on hemodialysis ([facility]) ([facility]) 10/26/2019 Hemodialysis patient ([facility]) ([facility]) HTN (hypertension) 12/01/2022 Hypertension IgA nephropathy IgA nephropathy determined by biopsy of kidney 10/26/2019 Missed vaccination due to patient refusal 10/08/2023 Has a number of non-scientific based beliefs which interfere with his understanding and acceptance of the medical benefit of vaccination. Nonrheumatic aortic valve stenosis 10/08/2023 Paroxysmal A-fib ([facility]) ([facility]) 08/18/2023 Tobacco abuse 10/08/2023 [2] Past [...] needed (PRN constipation). [DISCONTINUED] epoetin rowan-epbx (Retacrit) 91264 UNIT/ML injection Inject 0.79 mL (7,900 Units) under the skin 1 (one) time per week. (Patient not taking: Reported on 02/21/2025) [DISCONTINUED] pantoprazole (ProtoNix) 40 MG injection Infuse 40 mg into a venous catheter 2 times daily. Cosigned by Ahsan Gill DO at 02/26/2025 4:59 PM EDT [facility] Anticoagulation Management Service ([facility]) Inpatient Warfarin Consult HPI: Jun Snyder is a 59 y.o. male admitted on 02/20/2025 for Hemoptysis [R04.2]. Medical History[1] Patient is on warfarin for mechanical AVR and has a goal INR 2.0 - 3.0. Patient was referred to [facility], but so far has been managed at facilities, most recently [facility]. Pt's home dose of warfarin is [...] RPh [facility] Consult Service is available daily [phone] via [employer] Secure Chat. [1] Past Medical History: Diagnosis Date Acute renal failure (ARF) ([facility]) 10/19/2019 Anemia 12/30/2021 Calcification of abdominal aorta ([facility]) 10/08/202309/[address] abd Diverticulosis 10/08/2023 ESRD on hemodialysis ([facility]) ([facility]) 10/26/2019 Hemodialysis patient ([facility]) ([facility]) HTN (hypertension) 12/01/2022 Hypertension IgA nephropathy IgA nephropathy determined by biopsy of kidney 10/26/2019 Missed vaccination due to patient refusal 10/08/2023 Has a number of non-scientific based beliefs which interfere with his understanding and acceptance of the medical benefit of vaccination. Nonrheumatic aortic valve stenosis 10/08/2023 Paroxysmal A-fib ([facility]) ([facility]) 08/18/2023 Tobacco abuse 10/08/2023 Nephrology Progress [...] [facility] Initial Evaluation Name/MRN: Jair Snyder ([id number]) Evaluation Date: 02/25/2025 Date of : 1965 Admission Date: 02/20/2025 5:41 PM Age: 59 y.o. Room/Bed: [facility] A Discharge Recommendation: Penitentiary Facility Equipment Needed: No Assessment IMPRESSION: Patient [...] 01/19/2025 Complication of tracheostomy (CMS/HCC) (HCC) 01/19/2025 alf (current) use of antibiotics 01/12/2025 Acute respiratory failure with hypoxia ([facility]) [J96.01] 01/08/2025 Tracheostomy care ([facility]) [Z43.0] 01/08/2025 Pulmonary embolism ([facility]) 01/08/2025 Sacral osteomyelitis ([facility]) ([facility]) 01/03/2025 Pneumonia of both lungs due to methicillin susceptible Staphylococcus aureus (MSSA) ([facility]) 01/01/2025 Leukocytosis 12/30/2024 Decubitus ulcer of sacral region, unstageable ([facility]) 12/30/2024 Peritonitis due to fungus ([facility]) 11/30/2024 History of abdominal surgery 11/30/2024 Leg DVT (deep venous thromboembolism), acute, left ([facility]) 11/30/2024 Ischemic ulcer of toe of left foot, limited to breakdown of skin ([facility]) 11/30/2024 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[facility]) 11/30/2024 Pleural effusion 11/28/2024 Gastric ulceration 2024 Atrial flutter, unspecified type ([facility]) 10/03/2024 RSV (acute bronchiolitis due to respiratory syncytial virus) 10/03/2024 Diverticulosis 10/08/2023 Nonrheumatic aortic valve stenosis 10/08/2023 Calcification of abdominal aorta ([facility]) 10/08/2023 Missed vaccination due to patient refusal 10/08/2023 Tobacco abuse 10/08/2023 Alcohol use disorder in remission 10/08/2023 Paroxysmal A-fib ([facility]) ([facility]) 08/18/2023 HTN (hypertension) 12/01/2022 ESRD on hemodialysis ([facility]) ([facility]) 10/26/2019 IgA nephropathy determined by biopsy of kidney 10/26/2019 BRBPR (bright red blood per rectum) 01/19/2025 Aortic stenosis 10/03/2024 Upper GI bleed 10/03/2024 S/P AVR 10/03/2024 Acute hypoxic respiratory failure ([facility]) 10/03/2024 Acute encephalopathy 10/03/2024 Pneumoperitoneum 10/03/2024 [...] of Care supervision is transferred to a [facility] Therapy Services Physical Therapist. Goals and/or treatment plan was established in collaboration with patient/family/other representatives. [1] Past Medical History: Diagnosis Date Acute renal failure (ARF) ([facility]) 10/19/2019 Anemia 12/30/2021 Calcification of abdominal aorta (HCC) 10/08/202309/[address] abd Diverticulosis 10/08/2023 ESRD on hemodialysis ([facility]) ([facility]) 10/26/2019 Hemodialysis patient ([facility]) ([facility]) HTN (hypertension) 12/01/2022 Hypertension IgA nephropathy IgA nephropathy determined by biopsy of kidney 10/26/2019 Missed vaccination due to patient refusal 10/08/2023 Has a number of non-scientific based beliefs which interfere with his understanding and acceptance of the medical benefit of vaccination. Nonrheumatic aortic valve stenosis 10/08/2023 Paroxysmal A-fib ([facility]) ([facility]) 08/18/2023 Tobacco abuse 10/08/2023 [2] Past [...] bilateral pleural effusions. 5. Cholelithiasis, and diminutive match-e-be-nash-she-wish band kidneys. Seen by pulm service Started on IV abx Started on heparin gtt as well Interval History: pt feels ok Some dizziness at times No more bleeding issues 02/23 Pt awake Reports his PEG is uncomfortable-- wants removed if able No CP 02/24 Pt awake Some cough at times Sob better 02/25 Pt awake No sob today No CP Adult diet Regular @IODETAILS@ @[email or web address]@ Medications: Continuous Meds[1] Scheduled Meds[2] Recent Labs [...] Directive: Full Code Ramón Romano MD, [facility] Hospitalist [1] heparin, 5-30 Units/kg/hr, Last Rate: 18 Units/kg/hr (02/26/25 0736) [2] B complex-vitamin C-folic acid, 1 capsule, Oral, Daily metoprolol tartrate, 25 mg, Oral, BID pantoprazole, 40 mg, Oral, qAM AC piperacillin-tazobactam, 4,500 mg, IntraVENous, q8h QUEtiapine, 25 mg, Oral, Nightly sevelamer carbonate, 800 mg, Oral, TID WC warfarin, 1.5 mg, Oral, Once [facility] Anticoagulation Management Service ([facility]) Inpatient Warfarin Consult HPI: Jun Snyder is a 59 y.o. male admitted on 02/20/2025 for Hemoptysis [R04.2]. Medical History[1] Patient is on warfarin for mechanical AVR and has a goal INR 2.0 - 3.0. Patient was referred to [facility], but so far has been managed at facilities, most recently [facility]. Pt's home dose of warfarin is [...] PharmD [facility] Consult Service is available daily [phone] via [employer] Secure Chat. [1] Past Medical History: Diagnosis Date Acute renal failure (ARF) ([facility]) 10/19/2019 Anemia 12/30/2021 Calcification of abdominal aorta ([facility]) 10/08/202309/[address] abd Diverticulosis 10/08/2023 ESRD on hemodialysis ([facility]) ([facility]) 10/26/2019 Hemodialysis patient ([facility]) ([facility]) HTN (hypertension) 12/01/2022 Hypertension IgA nephropathy [...] signing off for vancomycin dosing. Marissa Iglesias, LauraD, Date: 02/24/25 Time: 4:08 PM Images from [...] PLT [phone] Recent Labs 02/22/250 02/23/25 0032 NA 132* 135* K 3.4* [...] bilateral pleural effusions. 5. Cholelithiasis, and diminutive match-e-be-nash-she-wish band kidneys. Seen by pulm service Started on IV abx Started on heparin gtt as well Interval History: pt feels ok Some dizziness at times No more bleeding issues 02/23 Pt awake Reports his PEG is uncomfortable-- wants removed if able No CP 02/24 Pt awake Some cough at times Sob better Adult diet Regular @IODETAILS@ @[email or web address]@ Medications: Continuous Meds[1] Scheduled Meds[2] Recent Labs [...] for: "TRIG", "HDL", "LDLCALC", "CHOL" Recent Labs 02/22/2599 02/23/25 0032 02/24/25 0010 INR 1.4* 1.3* [...] Directive: Full Code Ramón Romano MD, [facility] Hospitalist [1] heparin, 5-30 Units/kg/hr, Last Rate: 18 Units/kg/hr (02/24/25 0736) [2] B complex-vitamin C-folic acid, 1 capsule, Oral, Daily metoprolol tartrate, 25 mg, Oral, BID pantoprazole, 40 mg, Oral, qAM AC QUEtiapine, 25 mg, Per G Tube, Nightly sevelamer carbonate, 800 mg, Oral, TID WC vancomycin (Vancocin) intermittent dosing (placeholder), , Other, RX Placeholder [facility] Anticoagulation Management Service ([facility]) Inpatient Warfarin Consult HPI: Jun Snyder is a 59 y.o. male admitted on 02/20/2025 for Hemoptysis [R04.2]. Medical History[1] Patient is on warfarin for mechanical AVR and has a goal INR 2.0 - 3.0. Patient was referred to [facility], but so far has been managed at facilities, most recently [facility]. Pt's home dose of warfarin is [...] PharmD [facility] Consult Service is available daily [phone] via [employer] Secure Chat. [1] Past Medical History: Diagnosis Date Acute renal failure (ARF) ([facility]) 10/19/2019 Anemia 12/30/2021 Calcification of abdominal aorta ([facility]) 10/08/202309/[address] abd Diverticulosis 10/08/2023 ESRD on hemodialysis ([facility]) ([facility]) 10/26/2019 Hemodialysis patient ([facility]) ([facility]) HTN (hypertension) 12/01/2022 Hypertension IgA nephropathy IgA nephropathy determined by biopsy of kidney 10/26/2019 Missed vaccination due to patient refusal 10/08/2023 Has a number of non-scientific based beliefs which interfere with his understanding and acceptance of the medical benefit of vaccination. Nonrheumatic aortic valve stenosis 10/08/2023 Paroxysmal A-fib ([facility]) ([facility]) 08/18/2023 Tobacco abuse 10/08/2023 Images from the original note were not included. [facility] - Infectious Diseases Attending [...] necrotic Lines: sites clean Labs: Recent Labs 02/21/255202/22/259902/23/2531 NA 131* 132* 135* K 3.1* 3.4* 4.1 CL 91* 94* 99 CO2 BUN 29* 36* 21 CREATININE 2.89* 3.99* 2.78* GLUCOSE 74 121* 110* CALCIUM 9.3 9.2 9.2 PROT 6.8 6.7 7.1 BILITOT 0.8 0.6 0.6 ALKPHOS 120 120 136 AST 39* 35* 37* ALT 8 9 10 PROCAL 0.68* -- -- Recent Labs 02/21/255202/22/259902/23/2531 WBC 7.0 9.0 8.6 [...] from the original note were not included. [facility], Pulmonary Medicine [phone] PULMONARY PROGRESS NOTE. Patient - Jun Snyder, Age - 59 y.o. - 1965 Room Number - W3-334/W3-334 A Consulting - Ramón Romano MD [id number] Date of Admission - 02/20/2025 5:41 PM [...] PM EDT I have personally performed a [id number]-fw-dhkl diagnostic evaluation on this patient on date of service 02/23/25. History, labs, imaging studies, and electronic medical record have been reviewed by me. This note documented by the [x]rooming house inspector []ARMIN reflects my history, exam, and [...] weekend. Please reach out with any concerns [facility] Anticoagulation Management Service ([facility]) Inpatient Warfarin Consult HPI: Jun Snyder is a 59 y.o. male admitted on 02/20/2025 for Hemoptysis [R04.2]. Medical History[1] Patient is on warfarin for mechanical AVR and has a goal INR 2.0 - 3.0. Patient was referred to [facility], but so far has been managed at facilities, most recently [facility]. Pt's home dose of warfarin is [...] PharmD [facility] Consult Service is available daily [phone] via [employer] Secure Chat. [1] Past Medical History: Diagnosis Date Acute renal failure (ARF) ([facility]) 10/19/2019 Anemia 12/30/2021 Calcification of abdominal aorta ([facility]) 10/08/202309/[address] abd Diverticulosis 10/08/2023 ESRD on hemodialysis ([facility]) ([facility]) 10/26/2019 Hemodialysis patient ([facility]) ([facility]) HTN (hypertension) 12/01/2022 Hypertension IgA nephropathy [...] bilateral pleural effusions. 5. Cholelithiasis, and diminutive match-e-be-nash-she-wish band kidneys. Seen by pulm service Started on IV abx Started on heparin gtt as well Interval History: pt feels ok Some dizziness at times No more bleeding issues 02/23 Pt awake Reports his PEG is uncomfortable-- wants removed if able No CP Adult diet Regular @IODETAILS@ @[email or web address]@ Medications: Continuous Meds[1] Scheduled Meds[2] Recent Labs [...] Directive: Full Code Ramón Romano MD, [facility] Hospitalist [1] heparin, 5-30 Units/kg/hr, Last Rate: [...] the original note were not included. [facility] Wound Care/NPWT Progress Note Jun [...] for pain with PO pain medication, per rn staffing, prior to wound VAC dressing change. Wet [...] to follow Recommend to follow up at [facility] Outpatient wound care center after [...] Date Acute renal failure (ARF) ([facility]) 10/19/2019 Anemia 12/30/2021 Calcification of abdominal aorta ([facility]) 10/08/202309/[address] abd Diverticulosis 10/08/2023 ESRD on hemodialysis ([facility]) ([facility]) 10/26/2019 Hemodialysis patient ([facility]) ([facility]) HTN (hypertension) 12/01/2022 Hypertension IgA nephropathy IgA nephropathy determined by biopsy of kidney 10/26/2019 Missed vaccination due to patient refusal 10/08/2023 Has a number of non-scientific based beliefs which interfere with his understanding and acceptance of the medical benefit of vaccination. Nonrheumatic aortic valve stenosis 10/08/2023 Paroxysmal A-fib ([facility]) ([facility]) 08/18/2023 Tobacco abuse 10/08/2023 [2] Past [...] needed (PRN constipation). [DISCONTINUED] epoetin rowan-epbx (Retacrit) 77114 UNIT/ML injection Inject 0.79 mL (7,900 Units) [...] any questions or concerns Bree Molina APRN VIDEO PRODUCTION ASSISTANT A-G PACKAGE DELIVERY DRIVER [facility] [phone] Pt seen and examined independently by me. I reviewed with DOCUMENT CLERK-VIDEO PRODUCTION ASSISTANT the medical history and the findings on physical examination. I discussed the patient s diagnosis and concur with the treatment plan as documented in his note. Please call [phone] or message me through [employer] with any questions or concerns. Pharmacy Managed [...] [] CrCl ml/min (Cockcroft-Gault, if BLOSSOM, no PETROLEUM REFINING EQUIPMENT OPERATOR) Infectious Diagnosis: Pneumonia (target level = 15-20 [...] 4:36 PM Daryn Babcock PharmD (available on [employer]) Images from the original note were not included. [facility], Pulmonary Medicine [phone] PULMONARY PROGRESS NOTE. Patient - Jun Snyder, [...] PLT [phone] BMP: Recent Labs 02/20/25182402/21/255202/22/25 010 NA 133* 131* [...] PM EDT I have personally performed a [id number] diagnostic evaluation on this patient on date of service 02/22/2025. History, labs, imaging studies, and electronic medical record have been reviewed by me. This note documented by the [x]rooming house inspector []ARMIN reflects my history, exam, and [...] bilateral pleural effusions. 5. Cholelithiasis, and diminutive match-e-be-nash-she-wish band kidneys. Seen by pulm service Started on IV abx Started on heparin gtt as well Interval History: pt feels ok Some dizziness at times No more bleeding issues Adult diet Regular @IODETAILS@ @[email or web address]@ Medications: Continuous Meds[1] Scheduled Meds[2] Recent Labs [...] Directive: Full Code Ramón Romano MD, [facility] [facility] [place] Hospitalist [1] heparin, 5-30 Units/kg/hr, Last Rate: [...] OCCUPATIONAL THERAPY [facility] Name/MRN: Jair Snyder ([id number]) Date: 02/22/2025 PT refusing to participate in [...] any questions or concerns Bree Molina APRN VIDEO PRODUCTION ASSISTANT A-G PACKAGE DELIVERY DRIVER [facility] [phone] Pt seen and examined independently by me. I reviewed with DENIA-VIDEO PRODUCTION ASSISTANT the medical history and the findings on physical examination. I discussed the patient s diagnosis and concur with the treatment plan as documented in his note. Please call [phone] or message me through [employer] with any questions or concerns. Images from the original note were not included. PHYSICAL THERAPY [facility] Name/MRN: Jair Snyder ([id number]) Date: 02/22/2025 Pt declined to work with therapy at this time, stating he wants to wait until after the wound vac is put on. Will reattempt at a later date. Sangeeta Sarabia, PT Images from the original note were not included. PHYSICAL THERAPY [facility] Name/MRN: Jair Snyder ([id number]) Date: 02/21/2025 Pt declined to work with therapy at this time, stating he wanted to eat first. Will reattempt at a later date. Sangeeta Sarabia, PT Pt awake Some cough, no further [...] Time 17 min documented in this encounter [facility] 03-05-2025 Miscellaneous Notes Formattin g of this note might be different from the original. Auth is now pending with [facility]. Auth ID: [id number] . The insurance needs PT and OT notes- as PT note yesterday incomplete , they are both requested . Confirmed pickup time of 4:00pm on 03/05/25 by transport [employer] at phone number [phone]. Location of facility drop off is [facility]. Facility notified via Careport, [facility] notified on secure chat. Discharge med list transmitted to [facility] via Careport per TCC request. [facility] requested transport to be set up at 4 PM to permit auth to be ongoing- facility can accept- just requested it be started today - information clerk notified, and discharge orders faxed, will confirm in secure chat the time and notify the tx team , orders in [facility] , rosendo done, return to [facility] . [facility] requested OT notes this am - for ongoing auth - PT INR is now good 1.8 , notified facility want to send today , auth was only good thru 03/02 notified PLANER OFFBEARER to confirm about auth requirements again today .. Transport in will call, wound VAC to go with patient, discharge orders in [facility] , LIVES at facility LTC - the facility wants to skill- [facility] is working with them to have him discharge later today - transport in will call . Assistant Mechanic notified to send orders and med rec to [facility] Problem: Knowledge Deficit Goal: Patient/family/caregiver demonstrates [...] Note DC plan is return to ECF/SNF- [facility], no auth needed to return however [...] Progress Note 03/03/25 1025 Rapid Rounds Attendance Aws Architect Planned Discharge Disposition [facility] ([facility]- return, is LTC no AUTH needed) Today we still await Other (INR >or = 1.8 per SAILAJA) Clinical stability Attending completion of discharge workflow Additional Comments: We have a skilled AUTH that expires midnight tonight, however facility will still accept without AUTH per previous CM notes This Aws Architect was tasked to follow this patient through the weekend. Chart and Careport were reviewed. INR this am is 1.6, subtherapeutic. Facility updated. Transportation is in will call. clinical outcomes manager will continue to follow for transitional [...] med list and updated notes transmitted to [facility] via Careport per TCC [...] labs post at [facility] to follow . Assistant Mechanic tasked to send wound vac and clinicals- requested PT/OT notes for ongoing auth . Rosendo done- transport in will call to return to [facility] where he lives facility did [...] Roundtrip in will call per TCC. Tasked PLANER OFFBEARER to set up transport in will call, [...] Need updated therapy to start auth for [facility]. Continues on IV antibiotics. On a heparin gtt. SMS following to change to Coumadin. INR 13 today. Plan is to return to [facility]. . Length of Stay (Days): 7 [...] therapy notes. Want to skill him at [facility]. Started on IV antibiotics for aspiration pneumonia. Continues on a heparin gtt. . Updated notes sent to [facility] via [facility] per [facility] request. Await review and response regarding [...] pressure injuries/wounds this shift so RN [facility] would prefer to SKILL patient- LTC. + [...] Interventions Goal: Promote nutritional intake Outcome: Progressing [facility] would prefer to SKILL patient- LTC. + bedhold will return - has woundVAC and ivab on hep gtt, not ready for discharge , [facility] tasked to send clinicals facility is updated . Updated notes sent to [facility] via Careport per TCC [...] Outcome: Not Progressing Has dialysis at facility, [facility].. Pt came to ER from dialysis due to hemoptysis. Had a trach removed 01/19. He is a bed hold at [facility]. They would like to skill him if able. Unable to tell me where he went to dialysis this am, asking facility. [facility] request. Await review and response regarding [...] of blood components. documented in this encounter [facility] 03-05-2025 Note [facility] 03-05-2025 Hospital course Narrative Images from the original note were not included. Hospitalist Discharge Summary - [facility] - Acute Care [facility] ([place]) Jun Snyder : 1965 Admit date: 02/20/2025 Discharge date: 03/05/2025 Admitting Physician: Bettye Pierre MD Primary Care Physician: Leilani Troncoso Recommended Follow-up: [facility] Wound Ostomy [address] [facility] [address] [place] [facility] [address] [place] [address] [facility] [address] Call Call and schedule appointment [...] "CHOL" No results found for: "PHART", "PO2ART", "TAG6IFX" Recent Labs 03/04/25 0156 03/04/25 0946 03/05/25 0343 INR 1.5* 1.6* 1.8* No results for input(s): "DDIMER" in the last 72 hours. No results found for: "HGBA1C" No results found for: "TSH" Urine Culture: No results found for this or any previous visit. Imaging: CTA chest angiogram w and/or wo IV contrast Result Date: 02/20/2025 Patient Name: JUN SNYDER : 1965 [facility]#: [id number] Exam Date/Time: 02/20/2025 19:01 Procedure: CT CHEST [...] bilateral pleural effusions. 5. Cholelithiasis, and diminutive [place] kidneys. Report Dictated on Electronically Signed By: [...] Medications These medications were sent to [facility] [address] [place] [id number] metoprolol tartrate 25 MG tablet pantoprazole 40 MG EC tablet QUEtiapine 25 MG tablet sevelamer carbonate 800 MG tablet You can get these medications from any pharmacy Bring a paper prescription for each of these medications oxyCODONE 5 MG immediate release tablet Signed: Anthony Hurtado DO 03/05/2025, 9:30 AM documented in this encounter [facility] 03-03-2025 Nurse Note Patient Name: Jun Snyder Patient : 1965 Acct: [id number] Date of Admission: 02/20/2025 Room/Bed: [facility] A Code Status: Full Code Allergies: [...] 03/03/2025211 HGB 8.3 (L) 03/03/2025211 HGB 9.4 11/11/2024229 HCT 27.8 (L) 03/03/2025211 PLT 397 03/03/2025211 NA 140 03/03/2025211 K 6.2 (HH) 03/03/2025211 CL 101 03/03/2025211 CO2 28 03/03/2025211 BUN 26 (H) 03/03/2025211 CREATININE 3.21 (H) 03/03/2025211 CREATININE 9.99 (H) 10/27/2019544 CALCIUM 9.8 03/03/2025211 PHOS 2.6 02/23/202531 IV Drips and Rate/Dose Continuous Meds[3] Safety - Before each treatment: Dialysis Machine No.: [id number] RO Machine Number: [id number] Dialyzer Lot No.: [id number] Tubing Lot Number: [id number] All Connections Secure: Yes Venous Parameters Set: Yes Arterial Parameters Set: Yes NS Bag: Yes Saline Line Double Clamped: Yes Dialyzer: Nipro Prime Volume (mL): 200 mL RO Machine Number: [id number] RO Machine Log Sheet Completed: Yes Machine Alarm Self Test: Completed, Passed (03/03/25 0740) Air Foam Detector: Tested, Proper Function, pH Reading Extracorporeal Circuit Tested for Integrity: Yes Machine Conductivity: 13.7 Manual Conductivity: 13.6 Manual Ph: 7 Bleach Test (Neg): Yes Bath Temperature: 36 C (96.8 F) Conductivity Meter Serial #: [id number] Machine Functioning Alarm Free? Yes Dialysis Bath: K+ (Potassium): 2 Ca+ (Calcium): 2.5 Na+ (Sodium): 137 HCO3 (Bicarb): 35 Bicarbonate Concentrate Lot No.: [id number] Acid Concentrate Lot No.: [id number] Chlorine Testing - Before each treatment and [...] sleeping, removed 2144 03/03/25 1230 350 mL/min 80567 ml/hr -70 mmHg 170 mmHg 80 600 [...] Active Problem List Diagnosis Anemia Paroxysmal A-fib ([facility]) ([facility]) HTN (hypertension) ESRD on hemodialysis ([facility]) ([facility]) IgA nephropathy determined by biopsy of kidney Diverticulosis Nonrheumatic aortic valve stenosis Calcification of abdominal aorta ([facility]) Missed vaccination due to patient refusal [...] Acute respiratory failure with hypoxia ([facility]) [J96.01] Tracheostomy care ([facility]) [Z43.0] Pulmonary embolism (HCC) terminal clerk (current) use of antibiotics Complication of tracheostomy (CMS/HCC) ([facility]) BRBPR (bright red blood per rectum) Hemoptysis [3] heparin, 5-30 Units/kg/hr, Last Rate: 20 Units/kg/hr (03/03/25 0707) In patient's chart, d/t patient being on his call light excessively and finally telling me he wants something for pain. Please see eMAR for administration Patient Name: Jun Snyder Patient : 1965 Acct: [id number] Date of Admission: 02/20/2025 Room/Bed: [facility] A Code Status: Full Code Allergies: [...] - Before each treatment: Dialysis Machine No.: [id number] RO Machine Number: [id number] Dialyzer Lot No.: [id number] Tubing Lot Number: [id number] All Connections Secure: Yes Venous Parameters Set: Yes Arterial Parameters Set: Yes NS Bag: Yes Saline Line Double Clamped: Yes Dialyzer: Nipro Prime Volume (mL): 200 mL RO Machine Number: [id number] RO Machine Log Sheet Completed: Yes Machine Alarm Self Test: Completed, Passed (03/01/25 0749) Air Foam Detector: Tested, Proper Function, pH Reading Extracorporeal Circuit Tested for Integrity: Yes Machine Conductivity: 13.6 Manual Conductivity: 13.5 Manual Ph: 7.2 Bleach Test (Neg): Yes Bath Temperature: 36 C (96.8 F) Conductivity Meter Serial #: [id number] Machine Functioning Alarm Free? Yes Dialysis Bath: K+ (Potassium): 3 Ca+ (Calcium): 2.5 Na+ (Sodium): 137 HCO3 (Bicarb): 35 Bicarbonate Concentrate Lot No.: [id number] Acid Concentrate Lot No.: [id number] Chlorine Testing - Before each treatment and [...] Active Problem List Diagnosis Anemia Paroxysmal A-fib ([facility]) ([facility]) HTN (hypertension) ESRD on hemodialysis ([facility]) ([facility]) IgA nephropathy determined by biopsy of kidney Diverticulosis Nonrheumatic aortic valve stenosis Calcification of abdominal aorta ([facility]) Missed vaccination due to patient refusal Tobacco abuse Alcohol use disorder in remission Atrial flutter, unspecified type ([facility]) RSV (acute bronchiolitis due to respiratory syncytial virus) Aortic stenosis Upper GI bleed S/P AVR Acute hypoxic respiratory failure ([facility]) Acute encephalopathy Pneumoperitoneum Gastric ulceration Severe malnutrition ([facility]) ([facility]) Pleural effusion Peritonitis due to fungus ([facility]) History of abdominal surgery Leg DVT (deep venous thromboembolism), acute, left ([facility]) Ischemic ulcer of toe of left foot, limited to breakdown of skin ([facility]) Tracheostomy dependence ([facility]) Leukocytosis Decubitus ulcer of sacral region, unstageable ([facility]) Pneumonia of both lungs due to methicillin susceptible Staphylococcus aureus (MSSA) ([facility]) Sacral osteomyelitis ([facility]) (HCC) Acute respiratory failure with hypoxia ([facility]) [J96.01] Tracheostomy care ([facility]) [Z43.0] Pulmonary embolism (HCC) terminal clerk (current) use of antibiotics Complication of tracheostomy [...] room, and the patients agitation. Nurse manager portable notified maintenance of the problem, and also [...] cannot leave the floor to pick up attendant his packages, and pt was agreeable to this as well. Patient Name: Jun Snyder Patient : 1965 Acct: [id number] Date of Admission: 02/20/2025 Room/Bed: [facility] A Code Status: Full Code Allergies: [...] Nadja Martinez Rn Incapacitated Nurse Education Completed: nan HBsAg ONLY: Date Drawn: February 24, 2025 [...] (0) 3 Regular None (Room air) Clear Harold Warm;Dry;No swelling Soft Active 02/27/25 1202 Alert (0) 3 Regular None (Room air) Clear Harold Warm Soft -- 02/27/25 1240 -- -- -- -- Diminished Ecchymosis -- -- -- Labs Lab Results Component Value Date/Time WBC 7.9 02/27/2025 0010 HGB 8.6 (L) 02/27/2025 0010 HGB 9.4 11/11/2024 0230 HCT 28.8 (L) 02/27/2025 0010 PLT 302 02/27/2025 0010 NA 135 (L) 02/23/2025 0032 K 4.1 02/23/2025 0032 CL 99 02/23/2025 0032 CO2 25 02/23/2025 0032 BUN 21 02/23/20252 CREATININE 2.78 (H) 02/23/202531 CREATININE 9.99 (H) 10/27/2019 0545 CALCIUM 9.2 02/23/202531 PHOS 2.6 02/23/202531 IV Drips and Rate/Dose Continuous Meds[3] Safety - Before each treatment: Dialysis Machine No.: [id number] RO Machine Number: [id number] Dialyzer Lot No.: [id number] Tubing Lot Number: [id number] All Connections Secure: Yes Venous Parameters Set: Yes Arterial Parameters Set: Yes NS Bag: Yes Saline Line Double Clamped: Yes Dialyzer: Nipro Prime Volume (mL): 200 mL RO Machine Number: [id number] RO Machine Log Sheet Completed: Yes Machine Alarm Self Test: Completed, Passed (02/27/25 0745) Air Foam Detector: Tested, Proper Function, pH Reading Extracorporeal Circuit Tested for Integrity: Yes Machine Conductivity: 13.7 Manual Conductivity: 143.6 Manual Ph: 7 Bleach Test (Neg): Yes Bath Temperature: 36 C (96.8 F) Conductivity Meter Serial #: [id number] Machine Functioning Alarm Free? Yes Dialysis Bath: K+ (Potassium): 3 Ca+ (Calcium): 2.5 Na+ (Sodium): 137 HCO3 (Bicarb): 35 Bicarbonate Concentrate Lot No.: [id number] Acid Concentrate Lot No.: [id number] Chlorine Testing - Before each treatment and [...] Active Problem List Diagnosis Anemia Paroxysmal A-fib ([facility]) ([facility]) HTN (hypertension) ESRD on hemodialysis ([facility]) ([facility]) IgA nephropathy determined by biopsy of kidney Diverticulosis Nonrheumatic aortic valve stenosis Calcification of abdominal aorta ([facility]) Missed vaccination due to patient refusal Tobacco abuse Alcohol use disorder in remission Atrial flutter, unspecified type ([facility]) RSV (acute bronchiolitis due to respiratory syncytial virus) Aortic stenosis Upper GI bleed S/P AVR Acute hypoxic respiratory failure ([facility]) Acute encephalopathy Pneumoperitoneum Gastric ulceration Severe malnutrition ([facility]) ([facility]) Pleural effusion Peritonitis due to fungus ([facility]) History of abdominal surgery Leg DVT (deep venous thromboembolism), acute, left ([facility]) Ischemic ulcer of toe of left foot, limited to breakdown of skin ([facility]) Tracheostomy dependence ([facility]) Leukocytosis Decubitus ulcer of sacral region, unstageable ([facility]) Pneumonia of both lungs due to methicillin susceptible Staphylococcus aureus (MSSA) ([facility]) Sacral osteomyelitis (CMS/HCC) (HCC) Acute respiratory failure with hypoxia ([facility]) [J96.01] Tracheostomy care ([facility]) [Z43.0] Pulmonary embolism ([facility]) terminal clerk (current) use of antibiotics Complication of tracheostomy [...] and will see if the day shift medical unit secretary can put a request in. 2322- Notified Dr. Hathaway of patient complaint of SOB and worsening chest pain that he described as dull and tight. Vitals WDL. STAT EKG ordered, patient given Nitrostat, and troponin sent down. 2330- Notified PETROLEUM REFINING EQUIPMENT OPERATOR to assess the patient. Patient Name: Jun Snyder Patient : 1965 Acct: [id number] Date of Admission: 02/20/2025 Room/Bed: [facility] A Code Status: Full Code Allergies: [...] 8.6 02/23/2025 0032 HGB 8.6 (L) 02/23/2025 0032 HGB 9.4 11/11/2024 0230 HCT 27.9 (L) 02/23/2025 003 PLT 316 02/23/202531 NA 135 (L) 02/23/2025 003 K 4.1 02/23/202531 CL 99 02/23/2025 003 CO2 25 02/23/2025 003 BUN 21 02/23/202531 CREATININE 2.78 (H) 02/23/202531 CREATININE 9.99 (H) 10/27/2019 0545 CALCIUM 9.2 02/23/202531 PHOS 2.6 02/23/202531 IV Drips and Rate/Dose Continuous Meds[3] Safety - Before each treatment: Dialysis Machine No.: [id number] RO Machine Number: [id number] Dialyzer Lot No.: [id number] Tubing Lot Number: [id number] All Connections Secure: Yes Venous Parameters Set: Yes Arterial Parameters Set: Yes NS Bag: Yes Saline Line Double Clamped: Yes Dialyzer: Nipro Prime Volume (mL): 200 mL RO Machine Number: [id number] RO Machine Log Sheet Completed: Yes Machine Alarm Self Test: Completed, Passed (02/24/25 0810) Air Foam Detector: Tested, Proper Function, pH Reading Extracorporeal Circuit Tested for Integrity: Yes Machine Conductivity: 13.7 Manual Conductivity: 13.7 Manual Ph: 7 Bleach Test (Neg): Yes Bath Temperature: 36 C (96.8 F) Conductivity Meter Serial #: [id number] Machine Functioning Alarm Free? Yes Dialysis Bath: K+ (Potassium): 3 Ca+ (Calcium): 2.5 Na+ (Sodium): 137 HCO3 (Bicarb): 35 Bicarbonate Concentrate Lot No.: [id number] Acid Concentrate Lot No.: [id number] Chlorine Testing - Before each treatment and [...] feed based on dietary recommendations) Provider Name: [place] Provider Role: Hospitalist Method of Communication: Secure [...] Active Problem List Diagnosis Anemia Paroxysmal A-fib ([facility]) (HCC) HTN (hypertension) ESRD on hemodialysis ([facility]) ([facility]) IgA nephropathy determined by biopsy of kidney Diverticulosis Nonrheumatic aortic valve stenosis Calcification of abdominal aorta ([facility]) Missed vaccination due to patient refusal Tobacco abuse Alcohol use disorder in remission Atrial flutter, unspecified type ([facility]) RSV (acute bronchiolitis due to respiratory [...] Tracheostomy care (HCC) [Z43.0] Pulmonary embolism (HCC) alf (current) use of antibiotics Complication of tracheostomy (CMS/HCC) (HCC) BRBPR (bright red blood per rectum) Hemoptysis [3] heparin, 5-30 Units/kg/hr, Last Rate: 18 Units/kg/hr (02/24/25 1601) Patient continuing to order packages when he was instructed not to, multiple times, while at the hospital. Dispatch called [facility] and said a package came to the mail room clerk but they will not have access to retreive until Wednesday morning. It is locked over the weekend. Wound Care consulted for Pressure Injury Prevention. Pt's Kee score= 13 on 02/23 Pt's pressure points assessed. Pt's Right Heel, Elbows, Occiput and ears all intact. Pt currently followed by Wound PACKAGE DELIVERY DRIVER group for wounds to left toes, left plantar heel, right wrist, and sacrum with wound vac. For left toes, left heel, right wrist, and sacral wound assessments and treatment plan, please see Wound/Ostomy PACKAGE DELIVERY DRIVER progress notes. [place] sheet noted at bedside and not on [...] Name: Jun Snyder Patient : 1965 Acct: [id number] Date of Admission: 02/20/2025 Room/Bed: [facility] A Code Status: Full Code Allergies: [...] 132 (L) 02/22/2025 010 K 3.4 (L) 02/22/202599 CL 94 (L) 02/22/2025 0100 CO2 25 02/22/2025 0100 BUN 36 (H) 02/22/202599 CREATININE 3.99 (H) 02/22/202599 CREATININE 9.99 (H) 10/27/2019 0545 CALCIUM 9.2 02/22/202599 PHOS 3.2 02/22/202599 IV Drips and Rate/Dose Continuous Meds[3] Safety - Before each treatment: Dialysis Machine No.: [id number] RO Machine Number: [id number] Dialyzer Lot No.: [id number] Tubing Lot Number: [id number] All Connections Secure: Yes Venous Parameters Set: Yes Arterial Parameters Set: Yes NS Bag: Yes Saline Line Double Clamped: Yes Dialyzer: Nipro Prime Volume (mL): 200 mL RO Machine Number: [id number] RO Machine Log Sheet Completed: Yes Machine Alarm Self Test: Completed, Passed (test passed at 0938) (02/22/25 0940) Air Foam Detector: Tested, Proper Function, pH Reading Extracorporeal Circuit Tested for Integrity: Yes Machine Conductivity: 13.7 Manual Conductivity: 13.8 Manual Ph: 7 Bleach Test (Neg): Yes (water check negative at 1215) Bath Temperature: 36 C (96.8 F) Conductivity Meter Serial #: [id number] Machine Functioning Alarm Free? Yes Dialysis Bath: K+ (Potassium): 3 Ca+ (Calcium): 2 Na+ (Sodium): 137 HCO3 (Bicarb): 35 Bicarbonate Concentrate Lot No.: [id number] Acid Concentrate Lot No.: [id number] Chlorine Testing - Before each treatment and [...] 120 mmHg 90 600 Yes Brigitte Molina PACKAGE DELIVERY DRIVER at bedside, no voiced complaints. fluid removal [...] feed based on dietary recommendations) Provider Name: [place] Provider Role: Hospitalist Method of Communication: Secure [...] Active Problem List Diagnosis Anemia Paroxysmal A-fib ([facility]) (HCC) HTN (hypertension) ESRD on hemodialysis ([facility]) ([facility]) IgA nephropathy determined by biopsy of [...] Acute respiratory failure with hypoxia ([facility]) [J96.01] Tracheostomy care ([facility]) [Z43.0] Pulmonary embolism ([facility]) terminal clerk (current) use of antibiotics Complication of tracheostomy (CMS/HCC) ([facility]) BRBPR (bright red blood per rectum) [...] request. This RN spoke with RN at [facility] to verify medications that pt is taking. Pt arrived to hospital with wound vac on coccyx. Pt declined pictures to be taken of wound for charting. Pt states wound is being cared for by [facility]. Pt also mentioned that his Left [...] " Pt arrived on floor via [facility] documented in this encounter [facility] 02-26-2025 Telephone encount er Note Called spoke with a nurse at the home he lives at. She declined to schedule any appointments at this time because they don't know when patient will be discharged. She said to call back once he is out the hospital. There is no other number to contact patient directly [facility] 02-26-2025 Miscellaneous Notes Formattin g of [...] this? Thank you documented in this encounter [facility] 02-23-2025 Telephone encount er Note Called LM to call back and schedule CT and hospital follow up with any ARMIN [facility] 02-23-2025 Miscellaneous Notes Formattin g of this note might be different from the original. Called LM to call back and schedule CT and hospital follow up with any ARMIN Antonio, can we please schedule a 6-week CT scan for this patient and a follow-up appointment after this? Thank you documented in this encounter [facility] 02-23-2025 Consult note Formatting of th [...] was bright red and it stopped just BUSINESS UNIT MANAGER when in transport. Reason for Consult: [...] or moderate pain (4-6). Historical Provider, MD B complex-vitamin C-folic acid (Nephro-Nato Rx) 1 [...] constipation). 02/21/25 Historical Provider, epoetin rowan-epbx (Retacrit) 62715 UNIT/ML injection Inject 0.79 mL (7,900 Units) [...] 02/20/2025 [facility] 1965 [id number] Exam Date/Time: 02/20/2025 19:01 Procedure: CT CHEST [...] bilateral pleural effusions. 5. Cholelithiasis, and diminutive match-e-be-nash-she-wish band kidneys. Report Dictated on Electronically Signed By: [...] Jaskaran Bey MD General Surgery PGY-2 Pager [phone] [1] Past Medical History: Diagnosis Date Acute renal failure (ARF) (HCC) 10/19/2019 Anemia 12/30/2021 Calcification of abdominal aorta ([facility]) 10/08/202309/[address] abd Diverticulosis 10/08/2023 ESRD on hemodialysis ([facility]) ([facility]) 10/26/2019 Hemodialysis patient ([facility]) ([facility]) HTN (hypertension) 12/01/2022 Hypertension IgA nephropathy IgA nephropathy determined by biopsy of kidney 10/26/2019 Missed vaccination due to patient refusal 10/08/2023 Has a number of non-scientific based beliefs which interfere with his understanding and acceptance of the medical benefit of vaccination. Nonrheumatic aortic valve stenosis 10/08/2023 Paroxysmal A-fib ([facility]) ([facility]) 08/18/2023 Tobacco abuse 10/08/2023 [2] Past [...] 0 min Stress: Stress Concern Present (02/21/2025) [facility] [employer] [facility] - Occupational Stress Questionnaire Feeling of Stress : To some extent Social Connections: Unknown (02/21/2025) Social Connection and Isolation Panel [NHANES] Frequency of Communication with Friends and Family: More than three times a week Frequency of Social Gatherings with Friends and Family: Patient declined Attends Baptism Services: Patient declined Active Member of Clubs [...] minutes (including chart/data review/analysis, care coordination, and [id number]-ow-tcfv encounter), and was spent discussing/counseling the patient/family [...] & Acute Care Surgery Department of Surgery [facility] Pager: [phone] ~~~~~~~~~~~~~~~~~~~~~~~~~~~~~~~~ ~~~~~~~~~~~~~~~~~~~~~~~~~~~~~ This note may have been dictated using [employer] Medical Practice Edition 2.6 and/or [employer] AcuteCare Voice Recognition Feature. The document was proofread; however, unrecognized voice recognition senior controls technician errors may be present. [1] Patient Active Problem List Diagnosis Anemia Paroxysmal A-fib ([facility]) ([facility]) HTN (hypertension) ESRD on hemodialysis ([facility]) ([facility]) IgA nephropathy determined by biopsy of kidney Diverticulosis Nonrheumatic aortic valve stenosis Calcification of abdominal aorta ([facility]) Missed vaccination due to patient refusal Tobacco abuse Alcohol use disorder in remission Atrial flutter, unspecified type ([facility]) RSV (acute bronchiolitis due to respiratory syncytial virus) Aortic stenosis Upper GI bleed S/P AVR Acute hypoxic respiratory failure (HCC) Acute encephalopathy Pneumoperitoneum Gastric ulceration Severe malnutrition (CMS/HCC) ([facility]) Pleural effusion Peritonitis due to fungus (HCC) History of abdominal surgery Leg DVT (deep venous thromboembolism), acute, left (HCC) Ischemic ulcer of toe of left foot, limited to breakdown of skin ([facility]) Tracheostomy dependence ([facility]) Leukocytosis Decubitus ulcer of sacral region, unstageable (HCC) Pneumonia of both lungs due to methicillin susceptible Staphylococcus aureus (MSSA) (HCC) Sacral osteomyelitis (CMS/HCC) (HCC) Acute respiratory failure with hypoxia ([facility]) [J96.01] Tracheostomy care ([facility]) [Z43.0] Pulmonary embolism ([facility]) terminal clerk (current) use of antibiotics Complication of tracheostomy [...] bilateral pleural effusions. 5. Cholelithiasis, and diminutive match-e-be-nash-she-wish band kidneys. Past Medical History: Medical History[1] Past [...] 0 min Stress: Stress Concern Present (02/21/2025) [facility] [employer] - Occupational Stress Questionnaire Feeling of Stress : To some extent Social Connections: Unknown (02/21/2025) Social Connection and Isolation Panel [NHANES] Frequency of Communication with Friends and Family: More than three times a week Frequency of Social Gatherings with Friends and Family: Patient declined Attends Baptism Services: Patient declined Active Member of Clubs [...] bronchogram vs partial cavitation Antimicrobials,Start/End Dates: Vancomycin 5/28 Zosyn 02/21 Impression: Cavitary lung lesions - [...] Date Acute renal failure (ARF) ([facility]) 10/19/2019 Anemia 12/30/2021 Calcification of abdominal aorta ([facility]) 10/08/202309/[address] abd Diverticulosis 10/08/2023 ESRD on hemodialysis ([facility]) ([facility]) 10/26/2019 Hemodialysis patient ([facility]) ([facility]) HTN (hypertension) 12/01/2022 Hypertension IgA nephropathy IgA nephropathy determined by biopsy of kidney 10/26/2019 Missed vaccination due to patient refusal 10/08/2023 Has a number of non-scientific based beliefs which interfere with his understanding and acceptance of the medical benefit of vaccination. Nonrheumatic aortic valve stenosis 10/08/2023 Paroxysmal A-fib ([facility]) ([facility]) 08/18/2023 Tobacco abuse 10/08/2023 [2] Past [...] PROCEDURES IR FISTULAGRAM 08/07/2022 IR FISTULAGRAM 08/07/2022 [facility] IR IMAGING TONSILLECTOMY (HISTORICAL) [3] Current [...] 9:31 AM Jolie Uribe RPh (available on [employer]) Associated Order(s): INPATIENT CONSULT TO WOUND CARE PROVIDERS Images from the original note were not included. [facility] Wound Care/NPWT Progress Note Jun [...] for pain with PO pain medication, per rn staffing, prior to wound VAC dressing change. Wet [...] apply Betadine and allow to dry, leave SHEET ROCK TAPER daily and PRN Right wrist Abrasion: -cleanse [...] to follow Recommend to follow up at [facility] Outpatient wound care center after [...] Date Acute renal failure (ARF) ([facility]) 10/19/2019 Anemia 12/30/2021 Calcification of abdominal aorta ([facility]) 10/08/202309/[address] abd Diverticulosis 10/08/2023 ESRD on hemodialysis ([facility]) ([facility]) 10/26/2019 Hemodialysis patient ([facility]) ([facility]) HTN (hypertension) 12/01/2022 Hypertension IgA nephropathy IgA nephropathy determined by biopsy of kidney 10/26/2019 Missed vaccination due to patient refusal 10/08/2023 Has a number of non-scientific based beliefs which interfere with his understanding and acceptance of the medical benefit of vaccination. Nonrheumatic aortic valve stenosis 10/08/2023 Paroxysmal A-fib ([facility]) ([facility]) 08/18/2023 Tobacco abuse 10/08/2023 [2] Past [...] needed (PRN constipation). [DISCONTINUED] epoetin rowan-epbx (Retacrit) 13259 UNIT/ML injection Inject 0.79 mL (7,900 Units) [...] & deltoids) Fluid Accumulation: Unable to assess Autocad Strength: Not Performed Nutrition Assessment: 59yo male admitted [facility] due to coughing up blood [...] from NPO to Regular this morning. At [facility] diet was Potassium Restricted/Mech Soft/Thin + [...] Total Energy Requirements (kcals/day): 30-35 kcal/kg = 6488-1248 kcal Weight Used for Protein Requirements: Current [...] lb) (08/28/24) % Weight Change (Calculated): -34.6 Universal Body Weight (lbs) (Calculated): 166 lbs Universal Body Weight (Kg) (Calculated): 75 kg % Universal Body Weight (Calculated): 81.1 % BMI (kg/m2) [...] soon to determine Jade Rodriguez RD Contact: BeeTV or *[phone] Associated Order(s): INPATIENT CONSULT TO WOUND CARE PROVIDERS Images from the original note were not included. [facility] Wound Care CONSULT Note Jun [...] to follow Recommend to follow up at [facility] Outpatient wound care center after [...] Date Acute renal failure (ARF) ([facility]) 10/19/2019 Anemia 12/30/2021 Calcification of abdominal aorta ([facility]) 10/08/202309/[address] abd Diverticulosis 10/08/2023 ESRD on hemodialysis ([facility]) ([facility]) 10/26/2019 Hemodialysis patient ([facility]) ([facility]) HTN (hypertension) 12/01/2022 Hypertension IgA nephropathy [...] needed (PRN constipation). [DISCONTINUED] epoetin rowan-epbx (Retacrit) 97359 UNIT/ML injection Inject 0.79 mL (7,900 Units) under the skin 1 (one) time per week. (Patient not taking: Reported on 02/21/2025) [DISCONTINUED] pantoprazole (ProtoNix) 40 MG injection Infuse 40 mg into a venous catheter 2 times daily. Cosigned by Ahsna Gill DO at 02/26/2025 4:59 PM EDT Associated Order(s): IP CONSULT TO PULMONOLOGY Images from the original note were not included. [facility], Pulmonary Medicine [phone] PULMONARY CONSULTATION NOTE. Patient - Jun Snyder, [...] Dose Status acetaminophen (Tylenol) 325 MG tablet [id number] No Take 650 mg by mouth every 6 hours as needed for mild pain (1-3) or fever. Patient not taking: Reported on 02/21/2025 Historical ProviderMD Unknown Active Ampicillin-Sulbactam Sodium (UNASYN IV) [id number] Infuse 3 g into a venous catheter Every 24 hours. Historical ProviderMD 02/14/25 2787 B complex-vitamin C-folic acid (Nephro-Nato Rx) 1 MG tablet [id number] Take 1 tablet by mouth daily. Historical ProviderMD Active bisacodyl (Dulcolax) 5 MG EC tablet [id number] Take 5 mg by mouth Daily as needed for constipation. Do not crush, chew, or split. Historical ProviderMD Active bisacodyl (Dulcolax) 5 mg split suppository [id number] Insert 10 mg into the rectum Daily as needed (PRN constipation). Historical ProviderMD Active epoetin rowan-epbx (Retacrit) 64773 UNIT/ML injection [id number] No Inject 0.79 mL (7,900 Units) under the skin 1 (one) time per week. Patient not taking: Reported on 02/21/2025 DENIA Girard CNP Unknown Active ipratropium-albuterol (Duo-Neb) 0.5-2.5 mg/3 mL nebulizer solution [id number] Yes Take 3 mL by nebulization every 8 hours. DENIA Girard CNP Past Week Active Lidocaine 4 % patch [id number] Apply 1 patch topically daily. DENIA Girard CNP Active magnesium hydroxide (Milk of Magnesia) 800 MG/5ML suspension [id number] Take 30 mL by mouth Daily as needed for constipation (if no bm in 3 days). Historical Provider, Active melatonin 5 MG tablet [id number] 1 tablet (5 mg) by Per G Tube route Nightly as needed (insomnia). DENIA Girard CNP Active metoprolol tartrate (Lopressor) 25 MG tablet [id number] 1 tablet (25 mg) by Per G Tube route 2 times daily. DENIA Girard CNP Active midodrine (Proamatine) 5 MG tablet [id number] 3 tablets (15 mg) by Per G Tube route every 6 hours. DENIA Girard CNP 02/14/25 235 naloxone in sodium chloride (PF) injection injection [id number] Inject 0.04 mg into the shoulder, thigh, or buttocks as needed for opioid reversal or respiratory depression. Historical Provider, Active oxyCODONE (Roxicodone) 5 MG immediate release tablet [id number] Take 1 tablet (5 mg) by mouth every 6 hours as needed for moderate pain (4-6) for up to 5 days. Barb Dawkins MD 02/14/25 235 pantoprazole (ProtoNix) 40 MG injection [id number] Infuse 40 mg into a venous catheter 2 times daily. DENIA Girard CNP Active QUEtiapine (SEROquel) 25 MG tablet [id number] 1 tablet (25 mg) by Per G Tube route Nightly. Osiris Terrell APRN - VIDEO PRODUCTION ASSISTANT 02/14/25 7469 sevelamer (Renagel) 800 MG tablet [id number] Take 800 mg by mouth 3 times daily (with meals). Swallow tablet whole; do not crush, break, or chew. Give with meals for CKD/dialysis Historical Provider, Active warfarin (Coumadin) 1 MG tablet [id number] Yes Take as directed per After Visit Summary. Osiris Terrell APRN - [facility] 02/19/2025 Active Social History Social History Tobacco [...] PM EDT I have personally performed a [id number]-[id number] diagnostic evaluation on this patient on date of service 02/21/2025. History, labs, imaging studies, and electronic medical record have been reviewed by me. This note documented by the [x]rooming house inspector []ARMIN reflects my history, exam, and [...] RA Associated Order(s): IP CONSULT TO NEPHROLOGY [facility] [address] [place], [place] [id number] Consult Note Patient's Name: Jun Snyder 10:29 [...] bilateral pleural effusions. 5. Cholelithiasis, and diminutive match-e-be-nash-she-wish band kidneys. Assessment and Plan: 59 y.o. male [...] any questions or concerns Bree Molina APRN VIDEO PRODUCTION ASSISTANT A-G PACKAGE DELIVERY DRIVER [facility] [phone] Pt seen and examined independently by me. I reviewed with DENIA-VIDEO PRODUCTION ASSISTANT the medical history and the findings on physical examination. I discussed the patient s diagnosis and concur with the treatment plan as documented in his note. Please call [phone] or message me through [employer] with any questions or concerns. [1] Past Medical History: Diagnosis Date Acute renal failure (ARF) ([facility]) 10/19/2019 Anemia 12/30/2021 Calcification of abdominal aorta ([facility]) 10/08/202309/[address] abd Diverticulosis 10/08/2023 ESRD on hemodialysis ([facility]) ([facility]) 10/26/2019 Hemodialysis patient ([facility]) ([facility]) HTN (hypertension) 12/01/2022 Hypertension IgA nephropathy IgA nephropathy determined by biopsy of kidney 10/26/2019 Missed vaccination due to patient refusal 10/08/2023 Has a number of non-scientific based beliefs which interfere with his understanding and acceptance of the medical benefit of vaccination. Nonrheumatic aortic valve stenosis 10/08/2023 Paroxysmal A-fib ([facility]) ([facility]) 08/18/2023 Tobacco abuse 10/08/2023 [2] Past [...] Known Problems Father documented in this encounter [facility] 02-23-2025 Telephone encount er Note Antonio, can we please schedule a 6-week CT scan for this patient and a follow-up appointment after this? Thank you [facility] 02-22-2025 Hospital Discharg e instructions Anthony Hurtado, DO - 02/22/2025 2:54 PM EDT Images from the original note were not included. Continuity of Care Form Patient Name: Jun Snyder : 1965 Admit date: 02/20/2025 Discharge date: 03/05/2025 Code Status Order: Full Code Advance Directives: Y Admitting Physician: Bettye Pierre MD PCP: Leilani Troncoso Discharging Nurse: Discharging Hospital Unit/Room#: [id number]/[id number] A Discharging Unit Emergency Contact: Extended Emergency [...] PROCEDURES IR FISTULAGRAM 08/07/2022 IR FISTULAGRAM 08/07/2022 [facility] IR IMAGING TONSILLECTOMY (HISTORICAL) Immunization [...] Acute respiratory failure with hypoxia ([facility]) [J96.01] Tracheostomy care ([facility]) [Z43.0] Pulmonary embolism ([facility]) alf (current) use of antibiotics Complication of tracheostomy (CMS/HCC) (HCC) Anemia Aortic stenosis Upper GI bleed S/P AVR Acute hypoxic respiratory failure ([facility]) Acute encephalopathy Pneumoperitoneum BRBPR (bright red [...] Minimal assistance Toileting Minimal assistance Feeding Independent Twister Tender Minimal assistance Med Delivery yes Wound Care Documentation and Therapy: Wound/Incision 11/13/24 Pressure Injury Sacrum (Active) Site Assessment Unable to assess;Other (Comment) 02/21/25 0512 Odor None 02/21/25 0512 Drainage Amount Other (Comment) 02/21/25 0512 Treatments Other (Comment) 02/21/25 0512 Primary Dressing Vacuum dressing 02/21/25 05 Dressing Status Other (Comment) 02/21/25 0512 Number [...] 05 Drainage Amount Unable to assess 02/21/25 0512 [...] Date: 02/20/25 Discharging to Facility/ Agency Name: [facility] Address: [address] [place] [address] Dialysis Facility (if applicable) Name: Address: Dialysis Schedule: Phone: Fax: Aws Architect/Lithostripper signature: ICIAN SECTION Name: Jun Snyder Prognosis: [...] to a nursing facility directly from an [facility] or a unit of a hospital that is not operated by or licensed by [facility] under section 5119.14 or 5160-3-15.1 5 The individual requires the level of services provided by a nursing facility for the condition for which he or she was treated in the hospital and, Physician Certification: I certify the above information and transfer of Jun Snyder is necessary for the continuing treatment of the diagnosis listed and that he requires [facility] facility for less than 30 days. Update [...] 1.5mg 6/1 - 1.3 - 1 mg / - 1.3 - 1 mg documented in this encounter [facility] 02-21-2025 Telephone encount er Note Name of caller: Padmini Contact phone number: [phone] Relationship to Patient: [facility] Provider: Mariano Practice: Infectious Disease Chief Complaint/Reason for Call: [facility] need a routine consult for this patient for Hemoptysis Cavitary lung lesion. Please advise Padmini Best time of day caller can be reached: any Patient advised that office/PCP has 24-48 business hours to return their call: Yes [facility] 02-21-2025 Miscellaneous Notes Formattin g of this note might be different from the original. Name of caller: Padmini Contact phone number: [phone] Relationship to Patient: [facility] Provider: Mariano Practice: Infectious Disease Chief Complaint/Reason for Call: [facility] need a routine consult for this patient for Hemoptysis Cavitary lung lesion. Please advise Padmini Best time of day caller can be reached: any Patient advised that office/PCP has 24-48 business hours to return their call: Yes documented in this encounter [facility] 02-21-2025 [facility] TCC request. Await review and response regarding ability to accept. TCC notified. Electronically signed by NELSON Sabino [facility] 02-20-2025 History and physical note Attending [...] bilateral pleural effusions. 5. Cholelithiasis, and diminutive match-e-be-nash-she-wish band kidneys. Past Medical History: Past Medical History: Diagnosis Date Acute renal failure (ARF) ([facility]) 10/19/2019 Anemia 12/30/2021 Calcification of abdominal aorta ([facility]) 10/08/202309/[address] abd Diverticulosis 10/08/2023 ESRD on hemodialysis ([facility]) ([facility]) 10/26/2019 Hemodialysis patient ([facility]) ([facility]) HTN (hypertension) 12/01/2022 Hypertension IgA nephropathy IgA nephropathy determined by biopsy of kidney 10/26/2019 Missed vaccination due to patient refusal 10/08/2023 Has a number of non-scientific based beliefs which interfere with his understanding and acceptance of the medical benefit of vaccination. Nonrheumatic aortic valve stenosis 10/08/2023 Paroxysmal A-fib ([facility]) ([facility]) 08/18/2023 Tobacco abuse 10/08/2023 Past Surgical [...] Patient Unable To Answer (12/01/2024) Received from [facility] Overall Financial Resource Strain (CARDIA) Difficulty of Paying Living Expenses: Patient unable to answer Food Insecurity: Patient Unable To Answer (12/01/2024) Received from [facility] Medical Hunger Vital Sign Worried About Running Out of Food in the Last Year: Patient unable to answer Ran Out of Food in the Last Year: Patient unable to answer Transportation Needs: No Transportation Needs (01/18/2025) Received from [facility] Medical SDOH Transportation Source Has lack of transportation kept you from medical appointments or from getting medications?: No Has lack of transportation kept you from meetings, work, or from getting things needed for daily living?: No Physical Activity: Not on file Stress: No Stress Concern Present (01/18/2025) Received from [facility] of Occupational Health - Occupational Stress Questionnaire Feeling of Stress : Not at all Social Connections: Patient Unable To Answer (12/01/2024) Received from [facility] Social Connection and Isolation Panel [NHANES] Frequency of Communication with Friends and Family: Patient unable to answer Frequency of Social Gatherings with Friends and Family: Patient unable to answer Attends Baptism Services: Patient unable to answer Active Member of Clubs or Organizations: Patient unable to answer Attends Club or Organization Meetings: Patient unable to answer Marital Status: Patient unable to answer Intimate Partner Violence: Patient Unable To Answer (11/28/2024) Received from [facility] Domestic Abuse Assessment Do you feel safe in your relationships at home?: Unable to assess Physical Abuse: Unable to assess [facility] Domestic Abuse - Type of Abuse: Not on file [facility] Domestic Abuse - Time Frame: Not on file [facility] Domestic Abuse - Signs and Symptoms: Not on file Verbal Abuse: Unable to assess [facility] Domestic Abuse - Reported To: Not on file Housing Stability: Patient Unable To Answer (12/01/2024) Received from [facility] Medical Housing Stability Vital Sign Unable [...] MD Division of Hospital Medicine Inpatient Medical Services/[place] [1] Past Surgical History: Procedure Laterality Date [...] Swelling and Angioedema documented in this encounter [facility] 02-20-2025 Note [facility] 02-20-2025 Emergency department Note Called report [...] placed. Wound [facility] EMERGENCY DEPARTMENT ENCOUNTER [...] was bright red and it stopped just BUSINESS UNIT MANAGER when in transport. HISTORY OF PRESENT [...] CURRENT MEDICATIONS Previous Medications EPOETIN ROWAN-EPBX (RETACRIT) 22167 UNIT/ML INJECTION Inject 0.79 mL (7,900 Units) [...] Triage Vitals Temp Heart Rate Resp BP 02/20/25175002/20/25175002/20/25175002/20/251750 36.6 C (97.9 F) 86 18 135/81 [...] bilateral pleural effusions. 5. Cholelithiasis, and diminutive match-[place] band kidneys. Report Dictated on Electronically Signed By: Justo Mialn MD Electronically Signed Date/Time: 02/20/2025 7:50 PM [...] of hemoptysis, he will be admitted at [facility] for rehabilitation under the hospitalist service in case he [...] Date Acute renal failure (ARF) ([facility]) 10/19/2019 Anemia 12/30/2021 Calcification of abdominal aorta (HCC) 10/08/202309/[address] abd Diverticulosis 10/08/2023 ESRD on hemodialysis ([facility]) ([facility]) 10/26/2019 Hemodialysis patient ([facility]) ([facility]) HTN (hypertension) 12/01/2022 Hypertension IgA nephropathy IgA nephropathy determined by biopsy of kidney 10/26/2019 Missed vaccination due to patient refusal 10/08/2023 Has a number of non-scientific based beliefs which interfere with his understanding and acceptance of the medical benefit of vaccination. Nonrheumatic aortic valve stenosis 10/08/2023 Paroxysmal A-fib ([facility]) ([facility]) 08/18/2023 Tobacco abuse 10/08/2023 [2] Past [...] Patient Unable To Answer (12/01/2024) Received from [facility] Medical Hunger Vital Sign Worried About Running Out of Food in the Last Year: Patient unable to answer Ran Out of Food in the Last Year: Patient unable to answer Transportation Needs: No Transportation Needs (01/18/2025) Received from [facility] Medical SDOH Transportation Source Has lack of transportation kept you from medical appointments or from getting medications?: No Has lack of transportation kept you from meetings, work, or from getting things needed for daily living?: No Stress: No Stress Concern Present (01/18/2025) Received from [facility] of Occupational Health - Occupational Stress Questionnaire Feeling of Stress : Not at all Social Connections: Patient Unable To Answer (12/01/2024) Received from [facility] Medical Social Connection and Isolation Panel [NHANES] Frequency of Communication with Friends and Family: Patient unable to answer Frequency of Social Gatherings with Friends and Family: Patient unable to answer Attends Baptism Services: Patient unable to answer Active Member of Clubs or Organizations: Patient unable to answer Attends Club or Organization Meetings: Patient unable to answer Marital Status: Patient unable to answer Intimate Partner Violence: Patient Unable To Answer (11/28/2024) Received from [facility] Domestic Abuse Assessment Do you feel safe in your relationships at home?: Unable to assess Physical Abuse: Unable to assess Verbal Abuse: Unable to assess Housing Stability: Patient Unable To Answer (12/01/2024) Received from [facility] Housing Stability Vital Sign Unable to [...] was bright red and it stopped just BUSINESS UNIT MANAGER when in transport. documented in this encounter [facility] 02-14-2025 History of Presen t illness Narrative Images from the original note were not included. [facility] Infectious Diseases Advanced Practice Provider [...] Pip-Tazo and Anidulafungin. Patient was discharged to [facility] on 11/28/24 where he was followed by our ID group for recurrent MSSA LRTI. He additionally had a sacral wound that was debrided to bone 01/02/25 (Sacral wound Cx + E faecalis, Clostridium clostridioforme). He was on a course of Amp-Sulbactam planned for 6 weeks through 02/13/25 and discharged to SNF 01/18/25. Patient then presented to [facility] 01/19 after inadvertently self-dislodging tracheostomy. [...] Patient Unable To Answer (12/01/2024) Received from [facility] Medical Overall Financial Resource Strain (CARDIA) Difficulty of Paying Living Expenses: Patient unable to answer Food Insecurity: Patient Unable To Answer (12/01/2024) Received from [facility] Medical Hunger Vital Sign Worried About Running Out of Food in the Last Year: Patient unable to answer Ran Out of Food in the Last Year: Patient unable to answer Transportation Needs: No Transportation Needs (01/18/2025) Received from [facility] Transportation Source Has lack of transportation kept you from medical appointments or from getting medications?: No Has lack of transportation kept you from meetings, work, or from getting things needed for daily living?: No Physical Activity: Not on file Stress: No Stress Concern Present (01/18/2025) Received from [facility] of Occupational Health - Occupational Stress Questionnaire Feeling of Stress : Not at all Social Connections: Patient Unable To Answer (12/01/2024) Received from [facility] Social Connection and Isolation Panel [NHANES] Frequency of Communication with Friends and Family: Patient unable to answer Frequency of Social Gatherings with Friends and Family: Patient unable to answer Attends Baptism Services: Patient unable to answer Active Member of Clubs or Organizations: Patient unable to answer Attends Club or Organization Meetings: Patient unable to answer Marital Status: Patient unable to answer Intimate Partner Violence: Patient Unable To Answer (11/28/2024) Received from [facility] Domestic Abuse Assessment Do you feel [...] Patient Unable To Answer (12/01/2024) Received from [facility] Housing Stability Vital Sign Unable to [...] neg 01/22 Acinetobacter baumannii PCR: neg Previous ([facility]) 01/02- sacral wound cx- E faecalis (Amp-S), [...] accounting for open encounter. Mikala MORAN PA-C [facility] Infectious Disease [1] Past Medical History: Diagnosis Date Acute renal failure (ARF) ([facility]) 10/19/2019 Anemia 12/30/2021 Calcification of abdominal aorta ([facility]) 10/08/202309/[address] abd Diverticulosis 10/08/2023 ESRD on hemodialysis ([facility]) ([facility]) 10/26/2019 Hemodialysis patient ([facility]) ([facility]) HTN (hypertension) 12/01/2022 Hypertension IgA nephropathy IgA nephropathy determined by biopsy of kidney 10/26/2019 Missed vaccination due to patient refusal 10/08/2023 Has a number of non-scientific based beliefs which interfere with his understanding and acceptance of the medical benefit of vaccination. Nonrheumatic aortic valve stenosis 10/08/2023 Paroxysmal A-fib ([facility]) ([facility]) 08/18/2023 Tobacco abuse 10/08/2023 [2] Family History Problem Relation Name Age of Onset No Known Problems Mother No Known Problems Father documented in this encounter [facility] 02-02-2025 History of Presen t illness Narrative Images from the original note were not included. Pt discharged to [facility] on 02/01/25. Updated tracker with hospital doses. Warfarin dosing instructions: 0.5 mg per day. New interacting meds: N/a Next SAILAJA appt: post SNF documented in this encounter [facility] 02-02-2025 History of Presen t illness Narrative Images from the original note were not included. Pt discharged to [facility] on 02/01/25. Updated tracker with hospital doses. Warfarin dosing instructions: 0.5 mg per day. New interacting meds: N/a Next SAILAJA appt: post SNF Patient is still at [facility] ([phone]). I left a message for ELIA Anderson, regarding discharge plans. documented in this encounter [facility] 02-02-2025 History of Presen t illness Narrative Images from the original note were not included. Pt discharged to [facility] on 02/01/25. Updated tracker with hospital doses. Warfarin dosing instructions: 0.5 mg per day. New interacting meds: N/a Next SAILAJA appt: post SNF Patient is still at [facility] ([phone]). I left a message for ELIA Anderson, [...] readmitted on 02/20 and discharged back to [facility] on 03/05. documented in this encounter [facility] 02-01-2025 Nurse Note Transport here to take patient to [facility]. Wound Vac tubing clamped and disconnected from wound vac. Facility will determine if tubing is compatible with their wound vacs. Wound Vac Dressing leaking with foam falling out. Dressing removed and W-D drsg applied. Patient Name: Jun Snyder Patient : 1965 Acct: [id number] Date of Admission: 01/19/2025 Room[facility]Bed: [facility] A Code Status: Full Code Allergies: Allergies Allergen Reactions Lisinopril Swelling and Angioedema Diagnosis: Patient Active Problem List Diagnosis Anemia Paroxysmal A-fib ([facility]) ([facility]) HTN (hypertension) ESRD on hemodialysis ([facility]) ([facility]) IgA nephropathy determined by biopsy of kidney Diverticulosis Nonrheumatic aortic valve stenosis Calcification of abdominal aorta ([facility]) Missed vaccination due to patient refusal Tobacco abuse Alcohol use disorder in remission Atrial flutter, unspecified type ([facility]) RSV (acute bronchiolitis due to respiratory syncytial virus) Aortic stenosis Upper GI bleed S/P AVR Acute hypoxic respiratory failure ([facility]) Acute encephalopathy Pneumoperitoneum Gastric ulceration Severe malnutrition ([facility]) ([facility]) Pleural effusion Peritonitis due to fungus ([facility]) History of abdominal surgery Leg DVT (deep venous thromboembolism), acute, left ([facility]) Ischemic ulcer of toe of left foot, limited to breakdown of skin ([facility]) Tracheostomy dependence ([facility]) Leukocytosis Decubitus ulcer of sacral region, unstageable ([facility]) Pneumonia of both lungs due to methicillin susceptible Staphylococcus aureus (MSSA) ([facility]) Sacral osteomyelitis ([facility]/HCC) (HCC) Acute respiratory failure with hypoxia ([facility]) [J96.01] Tracheostomy care ([facility]) [Z43.0] Pulmonary embolism (HCC) terminal clerk (current) use of antibiotics Complication of tracheostomy (CMS/HCC) ([facility]) BRBPR (bright red blood per rectum) [...] 01/31/25 0400 -- -- -- -- Diminished Ecchymosis;Harold;Mark Warm;Dry Flat;Gastrostomy tube Active 01/31/25 0801 Alert [...] CALCIUM 10.0 01/31/2025 001 PHOS 4.6 01/31/2025 0010 IV Drips and Rate/Dose sodium chloride, 20 mL/hr, Last Rate: 20 mL/hr (01/30/25 1838) Safety - Before each treatment: Dialysis Machine No.: [id number] RO Machine Number: [id number] Dialyzer Lot No.: [id number] Tubing Lot Number: [id number] All Connections Secure: Yes Venous Parameters Set: Yes Arterial Parameters Set: Yes NS Bag: Yes Saline Line Double Clamped: Yes Dialyzer: Nipro Prime Volume (mL): 200 mL RO Machine Number: [id number] RO Machine Log Sheet Completed: Yes Machine Alarm Self Test: Completed, Passed (2386) (01/31/25 0743) Air Foam Detector: Tested, Proper Function, pH Reading Extracorporeal Circuit Tested for Integrity: Yes Machine Conductivity: 13.7 Manual Conductivity: 13.7 Manual Ph: 7 Bleach Test (Neg): Yes Bath Temperature: 36 C (96.8 F) Conductivity Meter Serial #: [id number] Machine Functioning Alarm Free? Yes Dialysis Bath: K+ (Potassium): 2 Ca+ (Calcium): 2.5 Na+ (Sodium): 137 HCO3 (Bicarb): 35 Bicarbonate Concentrate Lot No.: [id number] Acid Concentrate Lot No.: [id number] Chlorine Testing - Before each treatment and [...] to Education: Verbalized Understanding Patient arrived from [facility], Dr. Borrero in to speak [...] Name: Jun Snyder Patient : 1965 Acct: [id number] Date of Admission: 01/19/2025 Room[facility]Bed: [facility] A Code Status: Full Code [...] Acute respiratory failure with hypoxia ([facility]) [J96.01] Tracheostomy care ([facility]) [Z43.0] Pulmonary embolism (HCC) alf (current) use of antibiotics Complication of tracheostomy (CMS/HCC) ([facility]) BRBPR (bright red blood per rectum) [...] 01/29/25 0800 -- -- -- -- Clear Harold;Mark Warm;Dry Flat;Soft;Gastrostomy tube Active 01/29/25 0839 Alert (0) 3 Regular None (Room air) Clear Harold Warm;Dry;No swelling Soft Active 01/29/25 1210 Alert (0) 3 Regular None (Room air) Clear Harold -- -- -- Labs Lab Results Component [...] - Before each treatment: Dialysis Machine No.: [id number] RO Machine Number: [id number] Dialyzer Lot No.: [id number] Tubing Lot Number: [id number] All Connections Secure: Yes Venous Parameters Set: Yes Arterial Parameters Set: Yes NS Bag: Yes Saline Line Double Clamped: Yes Dialyzer: Nipro Prime Volume (mL): 200 mL RO Machine Number: [id number] RO Machine Log Sheet Completed: Yes Machine Alarm Self Test: Completed, Passed (01/29/25729) Air Foam Detector: Tested, Proper Function, pH Reading Extracorporeal Circuit Tested for Integrity: Yes Machine Conductivity: 13.8 Manual Conductivity: 13.8 Manual Ph: 7 Bleach Test (Neg): Yes Bath Temperature: 36 C (96.8 F) Conductivity Meter Serial #: [id number] Machine Functioning Alarm Free? Yes Dialysis Bath: K+ (Potassium): 3 Ca+ (Calcium): 2.5 Na+ (Sodium): 137 HCO3 (Bicarb): 35 Bicarbonate Concentrate Lot No.: [id number] Acid Concentrate Lot No.: [id number] Chlorine Testing - Before each treatment and [...] 210 mmHg 100 600 Yes Pt stable [id number]. Pt stable , sleeping 01/29/25 1018 400 [...] chair with heavy assist of 2. Will pearl back. Call light in reach Nurse to nurse report called to 1C. Pt in for transport. Patient Name: Jun Snyder Patient : 1965 Acct: [id number] Date of Admission: 01/19/2025 Room/Bed: T3-321/T3-321 A Code Status: Full Code Allergies: Allergies Allergen Reactions Lisinopril Swelling and Angioedema Diagnosis: Patient Active Problem List Diagnosis Anemia Paroxysmal A-fib ([facility]/HCC) (HCC) HTN (hypertension) ESRD on hemodialysis ([facility]) ([facility]) IgA nephropathy determined by biopsy of kidney Diverticulosis Nonrheumatic aortic valve stenosis Calcification of abdominal aorta (HCC) Missed vaccination due to patient refusal Tobacco abuse Alcohol use disorder in remission Atrial flutter, unspecified type (HCC) RSV (acute bronchiolitis due to respiratory syncytial virus) Aortic stenosis Upper GI bleed S/P AVR Acute hypoxic respiratory failure ([facility]) Acute encephalopathy Pneumoperitoneum Gastric ulceration Severe malnutrition (CMS/HCC) ([facility]) Pleural effusion Peritonitis due to fungus ([facility]) History of abdominal surgery Leg DVT (deep venous thromboembolism), acute, left ([facility]) Ischemic ulcer of toe of left foot, 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) Tracheostomy dependence ([facility]) Leukocytosis Decubitus ulcer of sacral region, unstageable (HCC) Pneumonia of both lungs due to methicillin susceptible Staphylococcus aureus (MSSA) ([facility]) Sacral osteomyelitis ([facility]/HCC) ([facility]) Acute respiratory failure with hypoxia ([facility]) [J96.01] Tracheostomy care ([facility]) [Z43.0] Pulmonary embolism ([facility]) alf (current) use of antibiotics Complication of tracheostomy ([facility]) ([facility]) BRBPR (bright red blood per rectum) [...] - Before each treatment: Dialysis Machine No.: [id number] RO Machine Number: [id number] Dialyzer Lot No.: [id number] Tubing Lot Number: [id number] All Connections Secure: Yes Venous Parameters Set: Yes Arterial Parameters Set: Yes NS Bag: Yes Saline Line Double Clamped: Yes Dialyzer: Nipro Prime Volume (mL): 200 mL RO Machine Number: [id number] RO Machine Log Sheet Completed: Yes Machine Alarm Self Test: Completed, Passed (1226) (01/26/25 1226) Air Foam Detector: Tested, Proper Function, pH Reading Extracorporeal Circuit Tested for Integrity: Yes Machine Conductivity: 13.9 Manual Conductivity: 14 Manual Ph: 7.4 Bleach Test (Neg): Yes Bath Temperature: 36 C (96.8 F) Conductivity Meter Serial #: [id number] Machine Functioning Alarm Free? Yes Dialysis Bath: K+ (Potassium): 2 Ca+ (Calcium): 2.5 Na+ (Sodium): 137 HCO3 (Bicarb): 35 Bicarbonate Concentrate Lot No.: [id number] Acid Concentrate Lot No.: [id number] Chlorine Testing - Before each treatment and [...] -- -- -- -- tx completed, [id number] Vital Signs Patient Vitals for the past [...] Primary RN (First Initial, Last Name, Title): P. Ge, RN Education Person Educated: Patient Knowledge Base: Substantial Barriers to Learning?: Yes, including AMS Preferred method of Learning: Oral Topic(s): Access Care, Signs and Symptoms of Infection, and Procedural Teaching Tools: Explanation Response to Education: Requires Follow-up APTT >139, resident notified. Patient Name: Jun Snyder Patient : 1965 Acct: [id number] Date of Admission: 01/19/2025 [facility] A Code Status: Full Code Allergies: Allergies Allergen Reactions Lisinopril Swelling and Angioedema Diagnosis: Patient Active Problem List Diagnosis Anemia Paroxysmal A-fib ([facility]) ([facility]) HTN (hypertension) ESRD on hemodialysis ([facility]) ([facility]) IgA nephropathy determined by biopsy of kidney Diverticulosis Nonrheumatic aortic valve stenosis Calcification of abdominal aorta ([facility]) Missed vaccination due to patient refusal Tobacco abuse Alcohol use disorder in remission Atrial flutter, unspecified type ([facility]) RSV (acute bronchiolitis due to respiratory syncytial virus) Aortic stenosis Upper GI bleed S/P AVR Acute hypoxic respiratory failure ([facility]) Acute encephalopathy Pneumoperitoneum Gastric ulceration Severe malnutrition ([facility]) ([facility]) Pleural effusion Peritonitis due to fungus ([facility]) History of abdominal surgery Leg DVT (deep venous thromboembolism), acute, left ([facility]) Ischemic ulcer of toe of left foot, limited to breakdown of skin ([facility]) Tracheostomy dependence ([facility]) Leukocytosis Decubitus ulcer of sacral region, unstageable ([facility]) Pneumonia of both lungs due to methicillin susceptible Staphylococcus aureus (MSSA) ([facility]) Sacral osteomyelitis ([facility]) ([facility]) Acute respiratory failure with hypoxia ([facility]) [J96.01] Tracheostomy care ([facility]) [Z43.0] Pulmonary embolism ([facility]) terminal clerk (current) use of antibiotics Complication of tracheostomy ([facility]) ([facility]) BRBPR (bright red blood per rectum) [...] - Before each treatment: Dialysis Machine No.: [id number] Machine Number: [id number] Dialyzer Lot No.: [id number] Tubing Lot Number: [id number] All Connections Secure: Yes Venous Parameters Set: Yes Arterial Parameters Set: Yes NS Bag: Yes Saline Line Double Clamped: Yes Dialyzer: Nipro Prime Volume (mL): 200 mL RO Machine Number: [id number] RO Machine Log Sheet Completed: Yes Machine Alarm Self Test: Completed, Passed (test passed at 0923) (01/24/25 0925) Air Foam Detector: Tested, Proper Function, pH Reading Extracorporeal Circuit Tested for Integrity: Yes Machine Conductivity: 13.8 Manual Conductivity: 13.8 Manual Ph: 7.2 Bleach Test (Neg): Yes (water check negative at 0910) Bath Temperature: 36 C (96.8 F) Conductivity Meter Serial #: [id number] Machine Functioning Alarm Free? Yes Dialysis Bath: K+ (Potassium): 3 Ca+ (Calcium): 2.5 Na+ (Sodium): 137 HCO3 (Bicarb): 35 Bicarbonate Concentrate Lot No.: [id number] Acid Concentrate Lot No.: [id number] Chlorine Testing - Before each treatment and every 4 hours: Time On: 929 Time Off: 1215 Treatment Goal: 0-2L as [...] Name: Jun Snyder Patient : 1965 Acct: [id number] Date of Admission: 01/19/2025 Room/Bed: T3-321/T3-321 A Code Status: Full Code Allergies: Allergies Allergen Reactions Lisinopril Swelling and Angioedema Diagnosis: Patient Active Problem List Diagnosis Anemia Paroxysmal A-fib (CMS/HCC) (HCC) HTN (hypertension) ESRD on hemodialysis ([facility]) ([facility]) IgA nephropathy determined by biopsy of kidney Diverticulosis Nonrheumatic aortic valve stenosis Calcification of abdominal aorta (HCC) Missed vaccination due to patient refusal Tobacco abuse Alcohol use disorder in remission Atrial flutter, unspecified type (HCC) RSV (acute bronchiolitis due to respiratory syncytial virus) Aortic stenosis Upper GI bleed S/P AVR Acute hypoxic respiratory failure ([facility]) Acute encephalopathy Pneumoperitoneum Gastric ulceration Severe malnutrition (CMS/HCC) ([facility]) Pleural effusion Peritonitis due to fungus ([facility]) History of abdominal surgery Leg DVT (deep venous thromboembolism), acute, left ([facility]) Ischemic ulcer of toe of left foot, 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) Tracheostomy dependence ([facility]) Leukocytosis Decubitus ulcer of sacral region, unstageable ([facility]) Pneumonia of both lungs due to methicillin susceptible Staphylococcus aureus (MSSA) ([facility]) Sacral osteomyelitis ([facility]/H[facility]) ([facility]) Acute respiratory failure with hypoxia ([facility]) [J96.01] Tracheostomy care ([facility]) [Z43.0] Pulmonary embolism ([facility]) terminal clerk (current) use of antibiotics Complication of tracheostomy ([facility]) ([facility]) Treatment: Hemodialysis 1:1 Priority: Routine Location: [...] 01/22/2025418 NA 132 (L) 01/22/2025418 K 4.4 01/22/2025 041 CL 94 (L) 01/22/2025 041 CO2 25 01/22/2025 041 BUN 53 (H) 01/22/2025418 CREATININE 4.18 (H) 01/22/2025418 CREATININE 9.99 (H) 10/27/2019 0545 CALCIUM 9.8 01/22/2025418 PHOS 6.8 (H) 01/22/2025418 IV Drips and Rate/Dose Safety - Before each treatment: Dialysis Machine No.: [id number] RO Machine Number: [id number] Dialyzer Lot No.: [id number] Tubing Lot Number: [id number] All Connections Secure: Yes Venous Parameters Set: Yes Arterial Parameters Set: Yes NS Bag: Yes Saline Line Double Clamped: Yes Dialyzer: Nipro Prime Volume (mL): 250 mL RO Machine Number: [id number] RO Machine Log Sheet Completed: Yes Machine Alarm Self Test: Completed, Passed (01/22/25850) Air Foam Detector: Tested, Proper Function, pH Reading Extracorporeal Circuit Tested for Integrity: Yes Machine Conductivity: (13.8) Manual Conductivity: 14 Manual Ph: 7.2 Bleach Test (Neg): Yes Bath Temperature: 36 C (96.8 F) Conductivity Meter Serial #: [id number] Machine Functioning Alarm Free? Yes Dialysis Bath: K+ (Potassium): 2 Ca+ (Calcium): 2.5 Na+ (Sodium): 137 HCO3 (Bicarb): 35 Bicarbonate Concentrate Lot No.: [id number] Acid Concentrate Lot No.: [id number] Chlorine Testing - Before each treatment and [...] 94 12 100 % 01/22/25 1145 (!) / -- -- 108 12 99 % 01/22/25 [...] Name: Jun Snyder Patient : 1965 Acct: [id number] Date of Admission: 01/19/2025 [facility] A Code Status: Full Code Allergies: Allergies Allergen Reactions Lisinopril Swelling and Angioedema Diagnosis: Patient Active Problem List Diagnosis Anemia Paroxysmal A-fib ([facility]) ([facility]) HTN (hypertension) ESRD on hemodialysis ([facility]) ([facility]) IgA nephropathy determined by biopsy of kidney Diverticulosis Nonrheumatic aortic valve stenosis Calcification of abdominal aorta ([facility]) Missed vaccination due to patient refusal Tobacco abuse Alcohol use disorder in remission Atrial flutter, unspecified type (HCC) RSV (acute bronchiolitis due to respiratory syncytial virus) Aortic stenosis Upper GI bleed S/P AVR Acute hypoxic respiratory failure ([facility]) Acute encephalopathy Pneumoperitoneum Gastric ulceration Severe malnutrition ([facility]/HCC) ([facility]) Pleural effusion Peritonitis due to fungus ([facility]) History of abdominal surgery Leg DVT (deep venous thromboembolism), acute, left ([facility]) Ischemic ulcer of toe of left foot, limited to breakdown of skin ([facility]) Tracheostomy dependence ([facility]) Leukocytosis Decubitus ulcer of sacral region, unstageable ([facility]) Pneumonia of both lungs due to methicillin susceptible Staphylococcus aureus (MSSA) ([facility]) Sacral osteomyelitis ([facility]/HCC) ([facility]) Acute respiratory failure with hypoxia ([facility]) [J96.01] Tracheostomy care ([facility]) [Z43.0] Pulmonary embolism ([facility]) alf (current) use of antibiotics Complication of tracheostomy ([facility]) ([facility]) Treatment: Hemodialysis 1:1 Priority: Routine Location: [...] 10.5 01/20/2025 0514 HGB 8.2 (L) 01/20/2025 08 HGB 9.4 11/11/2024 0230 HCT 25.8 (L) 01/20/2025 08 PLT 279 01/20/2025513 NA 135 (L) 01/20/2025513 K 4.8 01/20/2025513 CL 98 01/20/2025513 CO2 22 01/20/2025513 BUN 91 (H) 01/20/2025513 CREATININE 4.31 (H) 01/20/2025513 CREATININE 9.99 (H) 10/27/2019544 CALCIUM 9.2 01/20/2025513 PHOS 6.1 (H) 01/20/2025513 IV Drips and Rate/Dose pantoprazole (ProtoNix) 80 mg in sodium chloride 0.9 % 100 mL (0.8 mg/mL) infusion, 8 mg/hr Safety - Before each treatment: Dialysis Machine No.: [id number] RO Machine Number: [id number] Dialyzer Lot No.: [id number] Tubing Lot Number: [id number] All Connections Secure: Yes Venous Parameters Set: Yes Arterial Parameters Set: Yes NS Bag: Yes Saline Line Double Clamped: Yes Dialyzer: Nipro Prime Volume (mL): 200 mL RO Machine Number: [id number] RO Machine Log Sheet Completed: Yes Machine Alarm Self Test: Completed, Passed (1000) (01/20/25 1000) Air Foam Detector: Tested, Proper Function, pH Reading Extracorporeal Circuit Tested for Integrity: Yes Machine Conductivity: 13.6 Manual Conductivity: 13.8 Manual Ph: 7.2 Bleach Test (Neg): Yes Bath Temperature: 36 C (96.8 F) Conductivity Meter Serial #: [id number] Machine Functioning Alarm Free? Yes Dialysis Bath: K+ (Potassium): 2 Ca+ (Calcium): 2.5 Na+ (Sodium): 137 HCO3 (Bicarb): 35 Bicarbonate Concentrate Lot No.: [id number] Acid Concentrate Lot No.: [id number] Chlorine Testing - Before each treatment and every 4 hours: Time On: 1021 Weight Height: 177.8 cm (5' 10") (01/19/25 0657) Weight: 58.9 kg (129 lb 13.6 oz) [...] lab value (Hgb 6.6) Provider Name: LEONA day porter ATT Provider Role: Attending physician Method of [...] Education: Verbalized Understanding documented in this encounter [facility] 02-01-2025 Miscellaneous Notes Formattin g of this note might be different from the original. 7000 created in [facility] per TCC request. Facility notified via [facility]. Authorization approved for the [facility] through 02/02/25, discharge orders placed, ROSENDO completed. Transportation placed and confirmed for today 02/01/25 at 330pm to the [facility], physician/patient/medical unit secretary/RN aware. [facility] tasked to send 7000 and DC summary. Hep B panels, 3 days of HD flowsheets, MAR and OPAT sent to the [facility] via [facility]. Call placed to the [facility] to confirm able to still take patient [...] Nutrition Support Outcome: Progressing Updates placed to [facility] via Careport per TCC request. [...] Nutrition Support Outcome: Progressing Message sent to [employer] to start [facility] auth for [facility] [place]. Problem: Pain - Adult Goal: [...] order to start auth to return to [facility] per previous TCC note of plan. [...] Updates placed to [facility] Return - [facility] via Careport per TCC request. Await review and response regarding ability to accept. TCC notified. Electronically signed by [facility] Sabino Rodrigues Tasked [facility] to send updates to [facility], per their request. Warfarin bridging per MD notes, patient will need NEW auth for return to [facility]. Problem: Pain - Adult Goal: Verbalizes/displays adequate [...] Outcome: Progressing [facility]. Care Management Progress Note PCU transfer pending. Received one unit PRBC this AM for low Hgb. HD today. Heparin drip ongoing. IVAB (plan for 6 week course). Wound vac to sacral wound. Room Air. Dysphagia diet; pureed. DC plan - [facility]. Facility updated via careport. PLANER OFFBEARER asked to send dialysis note per their [...] Early Mobility/Exercise Safety Screen: Activity: Bed mobility -[facility] Score: Bed activity LDAs Peripheral IV 01/19/25 Right Forearm (Active) Number of days: 4 Peripheral IV 01/23/25 Anterior;Distal;Right Forearm (Active) Number of days: 0 Enterostomy Gastric 20 Fr. LUQ (Active) Number of days: 70 - Central Line indicated: N/A - Payne indicated: N/A [facility] request. 01/25/25 1047 Rapid Rounds Attendance Aws Architect Planned Discharge Disposition SNF Today we still await Administering IV medications;Cardiology Clinical Nurse Specialist recommendations (comment);Clinical stability;Symptomatic control;Post-discharge arrangement completion (comment) Patient remains on MICU. S/P colonoscopy 01/24-negative for active bleeding. Heparin drip resumed post procedure. Wound vac to sacral wound; IVAB till 02/13; OPAT under chart review > media. Plan for MBSS. Room Air. DC plan - [facility] when medically appropriate. CM will continue [...] Goal: Nutrition Support Outcome: Progressing [facility] Patient Name: Jun Snyder Procedure Date: 01/24/2025 12:37 PM Gender: Male Date of : 1965 Age: 59 Admit Type: Inpatient Note Status: Finalized Endoscopist: Chadd Davis MD, [id number] Procedure: Colonoscopy Indications: Evaluation of unexplained GI [...] by the physician, the nurse and the tank hoop bender in the pre-procedure area in the procedure [...] anticoagulant use Procedure Code(s): --- Professional --- 58837, Colonoscopy, flexible; diagnostic, including collection of specimen(s) by brushing or washing, when performed (separate procedure) --- Technical --- 95557, Colonoscopy, flexible; diagnostic, including collection of specimen(s) by brushing or washing, when performed (separate procedure) Diagnosis Code(s): --- Professional --- K64.0, First degree hemorrhoids K92.1, Melena (includes Hematochezia) Z79.01, terminal clerk (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 anticoagulants K57.30, Diverticulosis of large intestine without perforation or abscess without bleeding --- Technical --- K64.0, First degree hemorrhoids K92.1, Melena (includes Hematochezia) Z79.01, alf (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 anticoagulants K57.30, Diverticulosis of large intestine without perforation or abscess without bleeding CPT copyright 2021 [employer]. All rights reserved. The codes documented in this report are preliminary and upon therapeutic massage technician review may be revised to meet [...] Problem: Complication of tracheostomy (CMS/HCC) ([facility]) Active Problems: Severe malnutrition (CMS/HCC) ([facility]) Chief Complaint: Jun Snyder is a 59 y.o. male with chief complaint of: trach complications, OM from decub Reason Palliative Following:Goals of Care Plan:Ongoing Goals of Care Discussions and Support Code Status: Full Code Medications: Palliative Care Not Managing Any Medications Nursing: [facility] and Skin Integrity Social Work: Palliative [...] care team, reviewed Health Care Power of Straddle Buggy Operator (HCPOA) with patient. Patient agreeable to complete [...] envella bed. HCPOA completed with CM and ELIA; son Omar primary agent and laurence Chua, secondary agent. DC plan - return to [facility]. CM will continue to follow Length of Stay (Days): 1 GMLOS: 4.5 Images from the original note were not included. [facility] Palliative Care Transitions of Care Note Jun Snyder : 1965 ADMIT DATE: 01/19/2025 DISCHARGE DATE: TBD PRIMARY CARE PHYSICIAN: Leilani Troncoso CODE STATUS: Full Code DISCHARGE DIAGNOSES: Principal Problem: Complication of tracheostomy (CMS/HCC) ([facility]) Active Problems: Severe malnutrition (CMS/HCC) ([facility]) BRBPR (bright red blood per rectum) [...] to have bile peritonitis" 11/28/24: transferred to [facility] He ended up developing sacral ulcer and osteomyelitis at [facility]. He then ended up dislodging his [...] time - planning to eventually discharge to [facility] - will forward chart to [...] AV replacement Supratherapeutic INR - [employer] [facility] valve in 09/2024 - coumadin held due to bleeding and supratherapeutic levels Chronic respiratory failure s/p tracheostomy Tracheostomy dislodgement - has been saturating well without trach on RA so has not been replaced FOLLOW UP TESTING, PENDING RESULTS OR REFERRALS AT TRANSITIONAL CARE VISIT: No DISPOSITION: Skilled Rehab Facility FACILITY/HOME CARE AGENCY NAME: [facility] Follow up with Palliative Care [...] Safety: The patient was placed on a color television console monitor and vital signs, pulse oximetry, and [...] signed by this procedure note. [facility] Patient Name: Jun Snyder Procedure Date: 01/21/2025 9:59 AM Gender: Male Date of : 1965 Age: 59 Admit Type: Inpatient Note Status: Finalized Endoscopist: ELDON Alba MD, [id number] Procedure: Upper GI endoscopy Indications: Acute post [...] by the physician, the nurse and the tank hoop bender in the pre-procedure area in the procedure [...] loss: None. Procedure Code(s): --- Professional --- 42812, Esophagogastroduodenoscopy, flexible, transoral; diagnostic, including collection of specimen(s) by brushing or washing, when performed (separate procedure) --- Technical --- 04410, Esophagogastroduodenoscopy, flexible, transoral; diagnostic, including collection of [...] D62, Acute posthemorrhagic anemia CPT copyright 2021 [employer]. All rights reserved. The codes documented in this report are preliminary and upon therapeutic massage technician review may be revised to meet [...] Care Plan Patient was transferred over from [facility] after self-dislodged tracheostomy this morning [...] and treatment plans [facility] per TCC request. Await review and response regarding ability to accept. TCC notified. 01/19/25 1300 Rapid Rounds Attendance Aws Architect Planned Discharge Disposition SNF Today we still await Clinical stability;Cardiology Clinical Nurse Specialist recommendations (comment);Symptomatic control;Post-discharge arrangement completion (comment) Patient admitted due to trach dislodgement. Patient was discharged from [facility] to the [facility]; there only a matter of hours per [...] He would like patient to return to [facility] SNF is able at DC. Does not want patient to return to [facility]. PLANER OFFBEARER asked to place referral to [facility]. CM will continue to follow for DC [...] improved Outcome: Progressing documented in this encounter [facility] 02-01-2025 History of Presen t illness [...] 2/2 negative 10/03- 4plex- RSV Lines: AVF 5/ R chest tunneled line Radiography/Echo/Other: 01/19 CXR [...] of use of antimicrobials. Mikala MORAN PA-C [facility] Infectious Disease Nephrology Progress Note Following for [...] strategies. Plan & Recommendations Plan: Continue acute HEALTH CARE FACILITIES INSPECTOR therapy per initial plan of care [...] Expected End: 02/02/25 Resolved: 01/25/25 Therapy Time HEALTH CARE FACILITIES INSPECTOR Individual Minutes Time In: 816 Time Out: 829 Minutes: 13 KARLA Salazar Hospitalist Progress Note Subjective: Admit Date: 01/19/2025 PCP: Leilani Troncoso Room#: 1C-144/1C-144 A Chief Complaint Patient presents with Tracheostomy Tube Change Brief Hospital course: Jun Snyder is a 59 y.o. male who who presented to [facility] 01/19 after inadvertent removal of his [...] HD successfully. hemodynamically stable. Transferred out to [facility] 01/27 ID following for sacral osteomyelitis, s/p wound debridement to bone on 01/02, cultures grew E faecalis and Clostridium, continue with renally dosed ampicillin sulbactam for 6 weeks course through 02/13/2025, needs tunneled line, status post IR CVC tunneled line on 01/29 Nephrology following, on dialysis HEALTH CARE FACILITIES INSPECTOR following PT/OT recommends SNF Patient will [...] Date Acute renal failure (ARF) ([facility]) 10/19/2019 Anemia 12/30/2021 Calcification of abdominal aorta ([facility]) 10/08/202309/[address] abd Diverticulosis 10/08/2023 ESRD on hemodialysis ([facility]) ([facility]) 10/26/2019 Hemodialysis patient ([facility]) ([facility]) HTN (hypertension) 12/01/2022 Hypertension IgA nephropathy IgA nephropathy determined by biopsy of kidney 10/26/2019 Missed vaccination due to patient refusal 10/08/2023 Has a number of non-scientific based beliefs which interfere with his understanding and acceptance of the medical benefit of vaccination. Nonrheumatic aortic valve stenosis 10/08/2023 Paroxysmal A-fib ([facility]) ([facility]) 08/18/2023 Tobacco abuse 10/08/2023 Adult diet [...] 20 mL/hr, Last Rate: 20 mL/hr (01/30/25 0670) Assessment Data: (CAT1) Reviewed 2 notes from [...] by ID -S/p tunneled central line placement -HEALTH CARE FACILITIES INSPECTOR follow, dysphagia diet -PT OT DC [...] MD Division of Hospital Medicine Inpatient Medical Services/[place] [facility] Anticoagulation Management Service ([facility]) Inpatient Warfarin Consult HPI: Jun Snyder is a 59 y.o. male admitted on 01/19/2025 for Complication of tracheostomy ([facility]) ([facility]) [J95.00] Past Medical History: Diagnosis Date Acute renal failure (ARF) ([facility]) 10/19/2019 Anemia 12/30/2021 Calcification of abdominal aorta ([facility]) 10/08/202309/[address] abd Diverticulosis 10/08/2023 ESRD on hemodialysis ([facility]) ([facility]) 10/26/2019 Hemodialysis patient ([facility]) ([facility]) HTN (hypertension) 12/01/2022 Hypertension IgA nephropathy IgA nephropathy determined by biopsy of kidney 10/26/2019 Missed vaccination due to patient refusal 10/08/2023 Has a number of non-scientific based beliefs which interfere with his understanding and acceptance of the medical benefit of vaccination. Nonrheumatic aortic valve stenosis 10/08/2023 Paroxysmal A-fib ([facility]) ([facility]) 08/18/2023 Tobacco abuse 10/08/2023 Patient is on warfarin for Afib, mechanical AVR and has a goal INR 2.0 - 3.0. Warfarin is currently managed by facility, has yet to be seen by [facility]. Pt's home dose of warfarin is not [...] dose accordingly 3. Will facilitate f/u at [facility] upon discharge Tiffanie Dial RPh [facility] is available daily [phone] via [employer]. If no response on [employer] Chat then please page [phone]. Images from the original note were not included. OCCUPATIONAL THERAPY [facility] Re-Evaluation Name/MRN: Jair Snyder ([id number]) Evaluation Date: 01/31/2025 Date of : 1965 Admission Date: 01/19/2025 2:13 AM Age: 59 y.o. Room/Bed: 1C-144/1C-144 A Discharge Recommendation: [facility] Facility Other: DME TBD Assessment IMPRESSION: OT [...] Date Acute renal failure (ARF) ([facility]) 10/19/2019 Anemia 12/30/2021 Calcification of abdominal aorta ([facility]) 10/08/202309/[address] abd Diverticulosis 10/08/2023 ESRD on hemodialysis ([facility]) ([facility]) 10/26/2019 Hemodialysis patient ([facility]) ([facility]) HTN (hypertension) 12/01/2022 Hypertension IgA nephropathy IgA nephropathy determined by biopsy of kidney 10/26/2019 Missed vaccination due to patient refusal 10/08/2023 Has a number of non-scientific based beliefs which interfere with his understanding and acceptance of the medical benefit of vaccination. Nonrheumatic aortic valve stenosis 10/08/2023 Paroxysmal A-fib ([facility]) ([facility]) 08/18/2023 Tobacco abuse 10/08/2023 Past Surgical [...] PROCEDURES IR FISTULAGRAM 08/07/2022 IR FISTULAGRAM 08/07/2022 [facility] IR IMAGING TONSILLECTOMY (HISTORICAL) Admission Diagnosis: Patient Active Problem List Diagnosis Date Noted Severe malnutrition ([facility]) ([facility]) 01/19/2025 Complication of tracheostomy ([facility]) ([facility]) 01/19/2025 alf (current) use of antibiotics 01/12/2025 Acute respiratory failure with hypoxia ([facility]) [J96.01] 01/08/2025 Tracheostomy care ([facility]) [Z43.0] 01/08/2025 Pulmonary embolism ([facility]) 01/08/2025 Sacral osteomyelitis ([facility]) ([facility]) 01/03/2025 Pneumonia of both lungs due to methicillin susceptible Staphylococcus aureus (MSSA) ([facility]) 01/01/2025 Leukocytosis 12/30/2024 Decubitus ulcer of sacral region, unstageable ([facility]) 12/30/2024 Peritonitis due to fungus ([facility]) 11/30/2024 History of abdominal surgery 11/30/2024 Leg DVT (deep venous thromboembolism), acute, left ([facility]) 11/30/2024 Ischemic ulcer of toe of left foot, limited to breakdown of skin ([facility]) 11/30/2024 Tracheostomy dependence ([facility]) 11/30/2024 Pleural effusion 11/28/2024 Gastric ulceration 2024 Atrial flutter, unspecified type ([facility]) 10/03/2024 RSV (acute bronchiolitis due to respiratory syncytial virus) 10/03/2024 Diverticulosis 10/08/2023 Nonrheumatic aortic valve stenosis 10/08/2023 Calcification of abdominal aorta ([facility]) 10/08/2023 Missed vaccination due to patient refusal 10/08/2023 Tobacco abuse 10/08/2023 Alcohol use disorder in remission 10/08/2023 Paroxysmal A-fib ([facility]) ([facility]) 08/18/2023 HTN (hypertension) 12/01/2022 ESRD on hemodialysis ([facility]) ([facility]) 10/26/2019 IgA nephropathy determined by biopsy of kidney 10/26/2019 BRBPR (bright red blood per rectum) 01/19/2025 Aortic stenosis 10/03/2024 Upper GI bleed 10/03/2024 S/P AVR 10/03/2024 Acute hypoxic respiratory failure ([facility]) 10/03/2024 Acute encephalopathy 10/03/2024 Pneumoperitoneum 10/03/2024 [...] of Care supervision is transferred to a [facility] Therapy Services Occupational Therapist. Goals and/or treatment plan was established in collaboration with patient/family/other representatives. Images from the original note were not included. Speech-Language Pathology SPEECH LANGUAGE PATHOLOGY [facility] Dysphagia Treatment Note Patient Name: Jun Snyder Evaluation Date: 01/31/2025 Date of : 1965 Admission Date: 01/19/2025 2:13 AM Age: 59 y.o. Room[facility]Bed: [facility] A Subjective Patient alert and [...] diet and for oropharyngeal strengthening. Continue acute HEALTH CARE FACILITIES INSPECTOR therapy per initial plan of care [...] Expected End: 02/02/25 Resolved: 01/25/25 Therapy Time HEALTH CARE FACILITIES INSPECTOR Individual Minutes Time In: 1454 Time Out: 1515 Minutes: 21 FRANKLIN Carmona Images from the original note were not included. OCCUPATIONAL THERAPY [facility] Name/MRN: Jair Snyder ([id number]) Date: 01/31/2025 Attempted OT re-eval once pt [...] 31 ALT -- -- 11 Recent Labs 01/29/2533601/30/25 0047 01/30/25 1224 01/31/25 [...] of use of antimicrobials. Mikala MORAN PA-C [facility] Infectious Disease Images from the original note were not included. OCCUPATIONAL THERAPY [facility] Name/MRN: Jair Snyder ([id number]) Date: 01/31/2025 Attempted OT re-eval this AM, [...] or concerns Bree Molina APRN, CNP A-G PACKAGE DELIVERY DRIVER [facility] [phone] Pt seen and examined independently by me. I reviewed with DENIA-SAMIA the medical history and the findings on physical examination. I discussed the patient s diagnosis and concur with the treatment plan as documented in his note. Please call [phone] or message me through VINTAGEHUB with any questions or concerns. [facility] Anticoagulation Management Service ([facility]) Inpatient Warfarin Consult HPI: Jun Snyder is a 59 y.o. male admitted on 01/19/2025 for Complication of tracheostomy ([facility]) ([facility]) [J95.00] Past Medical History: Diagnosis Date Acute renal failure (ARF) ([facility]) 10/19/2019 Anemia 12/30/2021 Calcification of abdominal aorta ([facility]) 10/08/202309/[address] abd Diverticulosis 10/08/2023 ESRD on hemodialysis ([facility]) ([facility]) 10/26/2019 Hemodialysis patient ([facility] ([facility]) HTN (hypertension) 12/01/2022 Hypertension IgA nephropathy IgA nephropathy determined by biopsy of kidney 10/26/2019 Missed vaccination due to patient refusal 10/08/2023 Has a number of non-scientific based beliefs which interfere with his understanding and acceptance of the medical benefit of vaccination. Nonrheumatic aortic valve stenosis 10/08/2023 Paroxysmal A-fib ([facility]) ([facility]) 08/18/2023 Tobacco abuse 10/08/2023 Patient is [...] dose accordingly 3. Will facilitate f/u at [facility] upon discharge Tiffanie Dial RPh [facility] is available daily [phone] via Collexpo. If no response on V[employer]AGE[employer] Chat then please page [phone]. Hospitalist Progress Note Subjective: Admit Date: 01/19/2025 PCP: Leilani Troncoso Room#: 1C-144/1C-144 A Chief Complaint Patient presents with Tracheostomy Tube Change Brief Hospital course: Jun Snyder is a 59 y.o. male who who presented to [facility] 01/19 after inadvertent removal of his [...] HD successfully. hemodynamically stable. Transferred out to [facility] 01/27 ID following for sacral osteomyelitis, s/p wound debridement to bone on 01/02, cultures grew E faecalis and Clostridium, continue with renally dosed ampicillin sulbactam for 6 weeks course through 02/13/2025, needs tunneled line, status post IR CVC tunneled line on 01/29 Nephrology following, on dialysis HEALTH CARE FACILITIES INSPECTOR following PT recommends SNF Interval History: 01/31/2025-No overnight issues. Patient is seen and examined Patient is resting in his bed Dialysis today Denies any new acute complaints Labs reviewed, ESRD picture, hemoglobin 8.8, stable Case and plan discussed with patient and bedside nurse. All questions answered. Past Medical History: Past Medical History: Diagnosis Date Acute renal failure (ARF) ([facility]) 10/19/2019 Anemia 12/30/2021 Calcification of abdominal aorta ([facility]) 10/08/202309/[address] abd Diverticulosis 10/08/2023 ESRD on hemodialysis ([facility]) ([facility]) 10/26/2019 Hemodialysis patient ([facility]) ([facility]) HTN (hypertension) 12/01/2022 Hypertension IgA nephropathy IgA nephropathy determined by biopsy of kidney 10/26/2019 Missed vaccination due to patient refusal 10/08/2023 Has a number of non-scientific based beliefs which interfere with his understanding and acceptance of the medical benefit of vaccination. Nonrheumatic aortic valve stenosis 10/08/2023 Paroxysmal A-fib ([facility]) ([facility]) 08/18/2023 Tobacco abuse 10/08/2023 Adult diet [...] 271 276 -- 278 BMP: Recent Labs 01/29/2533601/30/257 01/31/25 0010 NA 134* 135* 138 K [...] 20 mL/hr, Last Rate: 20 mL/hr (01/30/25 170) Assessment Data: (CAT1) Reviewed 2 notes from [...] by ID -S/p tunneled central line placement -HEALTH CARE FACILITIES INSPECTOR follow, dysphagia diet -PT OT DC [...] MD Division of Hospital Medicine Inpatient Medical Services/[place] [facility] Anticoagulation Management Service ([facility]) Inpatient Warfarin Consult HPI: Jun Snyder is a 59 y.o. male admitted on 01/19/2025 for Complication of tracheostomy ([facility]) ([facility]) [J95.00] Past Medical History: Diagnosis Date Acute renal failure (ARF) ([facility]) 10/19/2019 Anemia 12/30/2021 Calcification of abdominal aorta ([facility]) 10/08/202309/[address] abd Diverticulosis 10/08/2023 ESRD on hemodialysis ([facility]) ([facility]) 10/26/2019 Hemodialysis patient ([facility]) ([facility]) HTN (hypertension) 12/01/2022 Hypertension IgA nephropathy IgA nephropathy determined by biopsy of kidney 10/26/2019 Missed vaccination due to patient refusal 10/08/2023 Has a number of non-scientific based beliefs which interfere with his understanding and acceptance of the medical benefit of vaccination. Nonrheumatic aortic valve stenosis 10/08/2023 Paroxysmal A-fib ([facility]) ([facility]) 08/18/2023 Tobacco abuse 10/08/2023 Patient is [...] dose accordingly 3. Will facilitate f/u at [facility] upon discharge Fatuma Odonnell RPh [facility] is available daily [phone] via Collexpo. If no response on V[employer]AGE[employer] Chat then please page [phone]. Images from the original note were not included. OCCUPATIONAL THERAPY [facility] Name/MRN: Jair Snyder ([id number]) Date: 01/30/2025 Attempted OT services however, Pt [...] candidate for diet upgrade. Christina Limon MS, CCC/HEALTH CARE FACILITIES INSPECTOR Nutrition Assessment Type and Reason for [...] Severe who remains admitted after presenting to [facility] on 01/19 after inadvertent removal of his tracheostomy. He was transferred to [facility] ICU for surgical evaluation, however pt was maintaining appropriate O2 saturations on room air and the decision was made to leave the tracheostomy out. Pt transferred to [facility] later that day (01/19). Course c/b [...] MWF schedule with Nephrology following. Transferred to [facility] 01/27. ID continues following for sacral osteomyelitis and recs IV Unasyn x 6 weeks--> stop date 02/13. Course c/b anxiousness and paranoia, often refusing care and wound dressing changes. In terms of nutrition, pt was only receiving nutrition via PEG BUSINESS UNIT MANAGER. He was NPO 01/19, Nepro @ 50mls/hr initiated 01/20 which ran until pt was made NPO/CLD for colonoscopy prep 01/23. Remained NPO 01/24, underwent MBSS 01/25 with recs for pureed/thin which remains his current diet with HEALTH CARE FACILITIES INSPECTOR following and recommending the same. PO [...] bedscale, 10/31: 200#, 11/28: 161#, 01/18: 142#) Universal Body Weight (lbs) (Calculated): 166 lbs Universal Body Weight (Kg) (Calculated): 75 kg % Universal Body Weight (Calculated): 70.5 % BMI (kg/m2) [...] soon to determine Marilu Pollock RD Contact: *[phone] Images from the original note were not included. PHYSICAL THERAPY [facility] Treatment Note Name/MRN: Jair Snyder ([id number]) Date of : 1965 Age: 59 y.o. Room/Bed: 1C-144/1C-144 A Discharge Recommendation[facility] Other: tbd Assessment Pt requires mod [...] Timed Code Treatment Minutes: (2FA) Jocelin Ramirez BUSINESS UNIT MANAGER Cosigned by Betty Grady, PT at [...] 9.8 9.6 Recent Labs 01/28/25 0516 01/29/257 01/30/25 0047 WBC 9.8 9.4 8.8 HGB 8.5* 8.6* 8.7* HCT 26.3* 27.3* 28.1* PLT 240 271 276 Micro: 01/22 C auris screen: negative 01/22 A baumannii screen: negative Previous ([facility]) 01/02- sacral wound cx- E faecalis (Amp-S), [...] be of moderate complexity. Mikala MORAN PA-C [facility] Infectious Disease Hospitalist Progress Note Subjective: Admit Date: 01/19/2025 PCP: Leilani Troncoso Room#: 1C-144/1C-144 A Chief Complaint Patient presents with Tracheostomy Tube Change Brief Hospital course: Jun Snyder is a 59 y.o. male who who presented to [facility] 01/19 after inadvertent removal of his [...] HD successfully. hemodynamically stable. Transferred out to [facility] 01/27 ID following for sacral osteomyelitis, s/p wound debridement to bone on 01/02, cultures grew E faecalis and Clostridium, continue with renally dosed ampicillin sulbactam for 6 weeks course through 02/13/2025, needs tunneled line, status post IR CVC tunneled line on 01/29 Nephrology following, on dialysis HEALTH CARE FACILITIES INSPECTOR following PT recommends SNF Interval History: [...] Date Acute renal failure (ARF) ([facility]) 10/19/2019 Anemia 12/30/2021 Calcification of abdominal aorta ([facility]) 10/08/202309/[address] abd Diverticulosis 10/08/2023 ESRD on hemodialysis ([facility]) ([facility]) 10/26/2019 Hemodialysis patient ([facility]) ([facility]) HTN (hypertension) 12/01/2022 Hypertension IgA nephropathy [...] by ID -S/p tunneled central line placement -HEALTH CARE FACILITIES INSPECTOR follow, dysphagia diet -PT OT DC [...] MD Division of Hospital Medicine Inpatient Medical Services/[place] [facility] Nephrology Progress Note Mr. Jun Snyder is [...] status and labs. Please message me through Workana chat with any questions or concerns. Wellington Nicole MD 01/30/2025 9:08 AM [facility] [address] [place] [address], [address] [place] [address] Office: [phone] Images from the original note were not [...] Expected End: 02/02/25 Resolved: 01/25/25 Therapy Time HEALTH CARE FACILITIES INSPECTOR Individual Minutes Time In: 1438 Time [...] Results Component Value Date/Time NA 134 (L) 01/29/20257 K 3.7 01/29/2025336 CL 94 (L) 01/29/2025 [...] low complexity. Radha Yee MD [facility] Nephrology Progress Note Mr. Jun Snyder is [...] MD 01/29/2025 10:13 AM [facility] [address], [address] [place] [address] Office: [phone] Images from the original note were not included. Hospitalist Progress Note 01/29/2025 Subjective: Admit Date: 01/19/2025 PCP: Leilani Troncoso Room#: 1C-144/1C-144 A Brief Hospital Summary: Jun Snyder is a 59 y.o. male who who presented to [facility] 01/19 after inadvertent removal of his [...] HD successfully. hemodynamically stable. Transferred out to [facility] 01/27 Interval History: No overnight issues. [...] CT abd Diverticulosis 10/08/2023 ESRD on hemodialysis ([facility]) ([facility]) 10/26/2019 Hemodialysis patient ([facility]) ([facility]) HTN (hypertension) 12/01/2022 Hypertension IgA nephropathy IgA nephropathy determined by biopsy of kidney 10/26/2019 Missed vaccination due to patient refusal 10/08/2023 Has a number of non-scientific based beliefs which interfere with his understanding and acceptance of the medical benefit of vaccination. Nonrheumatic aortic valve stenosis 10/08/2023 Paroxysmal A-fib ([facility]) ([facility]) 08/18/2023 Tobacco abuse 10/08/2023 LABS: CBC: Recent Labs 01/27/25 0006 01/27/25 2147 01/28/25 0516 01/29/25 0337 WBC 10.0 -- 9.8 9.4 RBC 3.26* -- 3.01* 3.06* HGB 9.0* 8.4* 8.5* 8.6* HCT 28.3* 26.3* 26.3* 27.3* MCV 86.8 -- 87.4 89.2 RDW 19.1* -- 19.0* 19.0* PLT 273 -- 240 271 BMP: Recent Labs 01/27/25501/28/25 0632 01/29/25 0337 NA 139 137 134* [...] QT Interval 413 QTC Interval 515 P Afton 69 QRS Afton 93 T Wave Afton 87 NV Interval 148 Impression Sinus rhythm Left atrial [...] sodium chloride 0.9 % 100 mL IVPB (Add-[place]), 3,000 mg, IntraVENous, q24h, Radha Yee MD, [...] mg, IntraVENous, q5 min PRN, Earlene Lozano, DOCUMENT CLERK - VIDEO PRODUCTION ASSISTANT, 5 mg at 01/25/25 1846 metoprolol tartrate (Lopressor) tablet 25 mg, 25 mg, Per G Tube, BID, Earlene Lozano APRN - VIDEO PRODUCTION ASSISTANT, 25 mg at 01/28/25 2222 midodrine (Proamatine) [...] by ID Ordered tunneled central line placement HEALTH CARE FACILITIES INSPECTOR follow, dysphagia diet PT OT DC planning Past Medical History: Diagnosis Date Acute renal failure (ARF) ([facility]) 10/19/2019 Anemia 12/30/2021 Calcification of abdominal aorta ([facility]) 10/08/202309/[address] abd Diverticulosis 10/08/2023 ESRD on hemodialysis ([facility]) ([facility]) 10/26/2019 Hemodialysis patient ([facility]) ([facility]) HTN (hypertension) 12/01/2022 Hypertension IgA nephropathy IgA nephropathy determined by biopsy of kidney 10/26/2019 Missed vaccination due to patient refusal 10/08/2023 Has a number of non-scientific based beliefs which interfere with his understanding and acceptance of the medical benefit of vaccination. Nonrheumatic aortic valve stenosis 10/08/2023 Paroxysmal A-fib ([facility]) ([facility]) 08/18/2023 Tobacco abuse 10/08/2023 Plan As [...] MD Division of Hospitalist Medicine Inpatient Medical Services/[place] Images from the original note were not included. [facility] Wound Care Progress Note Jun [...] diverticulosis, IgA nephropathy, severe that presented to [facility] ED from a facility due [...] Date Acute renal failure (ARF) ([facility]) 10/19/2019 Anemia 12/30/2021 Calcification of abdominal aorta (HCC) 10/08/202309/[address] abd Diverticulosis 10/08/2023 ESRD on hemodialysis ([facility]) ([facility]) 10/26/2019 Hemodialysis patient ([facility]) ([facility]) HTN (hypertension) 12/01/2022 Hypertension IgA nephropathy [...] Medication Sig Dispense Refill epoetin rowan-epbx (Retacrit) 47992 UNIT/ML injection Inject 0.79 mL (7,900 Units) [...] to follow Recommend to follow up at [facility] Outpatient wound care center after [...] Gill DO at 01/29/2025 4:37 PM EDT [facility] Anticoagulation Management Service ([facility]) Inpatient Warfarin Consult HPI: Jun Snyder is a 59 y.o. male admitted on 01/19/2025 for Complication of tracheostomy ([facility]) ([facility]) [J95.00] Past Medical History: Diagnosis Date Acute renal failure (ARF) ([facility]) 10/19/2019 Anemia 12/30/2021 Calcification of abdominal aorta ([facility]) 10/08/202309/[address] abd Diverticulosis 10/08/2023 ESRD on hemodialysis ([facility]) ([facility]) 10/26/2019 Hemodialysis patient ([facility] ([facility]) HTN (hypertension) 12/01/2022 Hypertension IgA nephropathy IgA nephropathy determined by biopsy of kidney 10/26/2019 Missed vaccination due to patient refusal 10/08/2023 Has a number of non-scientific based beliefs which interfere with his understanding and acceptance of the medical benefit of vaccination. Nonrheumatic aortic valve stenosis 10/08/2023 Paroxysmal A-fib ([facility]) ([facility]) 08/18/2023 Tobacco abuse 10/08/2023 Patient is [...] dose accordingly 3. Will facilitate f/u at [facility] upon discharge Fatuma Odonnell RPh [facility] is available daily [phone] via Collexpo. If no response on [employer] Chat then please page [phone]. [facility] Nephrology Progress Note Mr. Jun Snyder is [...] status and labs. Please message me through Workana chat with any questions or concerns. Wellington Nicole MD 01/28/2025 2:08 PM [facility] [address] [place] [address], [address] [place] [address] Office: [phone] Hospitalist Progress Note 01/28/2025 Subjective: Admit Date: 01/19/2025 PCP: Leilani Troncoso Room#: 1C-144/1C-144 A Brief Hospital Summary: Jun Snyder is a 59 y.o. male who who presented to [facility] 01/19 after inadvertent removal of his [...] HD successfully. hemodynamically stable. Transferred out to [facility] 01/27 Interval History: No overnight issues. [...] Date Acute renal failure (ARF) ([facility]) 10/19/2019 Anemia 12/30/2021 Calcification of abdominal aorta ([facility]) 10/08/202309/[address] abd Diverticulosis 10/08/2023 ESRD on hemodialysis ([facility]) ([facility]) 10/26/2019 Hemodialysis patient ([facility]) ([facility]) HTN (hypertension) 12/01/2022 Hypertension IgA nephropathy IgA nephropathy determined by biopsy of kidney 10/26/2019 Missed vaccination due to patient refusal 10/08/2023 Has a number of non-scientific based beliefs which interfere with his understanding and acceptance of the medical benefit of vaccination. Nonrheumatic aortic valve stenosis 10/08/2023 Paroxysmal A-fib ([facility]) ([facility]) 08/18/2023 Tobacco abuse 10/08/2023 LABS: CBC: [...] QT Interval 413 QTC Interval 515 P Afton 69 QRS Afton 93 T Wave Afton 87 NV Interval 148 Impression Sinus rhythm Left atrial [...] sodium chloride 0.9 % 100 mL IVPB (Add-[place]), 3,000 mg, IntraVENous, q24h, Radha Yee MD, [...] q5 min PRN, Earlene Lozano APRN - VIDEO PRODUCTION ASSISTANT, 5 mg at 01/25/25 1846 metoprolol tartrate (Lopressor) tablet 25 mg, 25 mg, Per G Tube, BID, Earlene Lozano APRN - VIDEO PRODUCTION ASSISTANT, 25 mg at 01/28/25 0848 midodrine (Proamatine) [...] for sacral wound by ID PT OT HEALTH CARE FACILITIES INSPECTOR follow, dysphagia diet Past Medical History: Diagnosis Date Acute renal failure (ARF) ([facility]) 10/19/2019 Anemia 12/30/2021 Calcification of abdominal aorta ([facility]) 10/08/202309/[address] abd Diverticulosis 10/08/2023 ESRD on hemodialysis ([facility]) ([facility]) 10/26/2019 Hemodialysis patient ([facility] ([facility]) HTN (hypertension) 12/01/2022 Hypertension IgA nephropathy IgA nephropathy determined by biopsy of kidney 10/26/2019 Missed vaccination due to patient refusal 10/08/2023 Has a number of non-scientific based beliefs which interfere with his understanding and acceptance of the medical benefit of vaccination. Nonrheumatic aortic valve stenosis 10/08/2023 Paroxysmal A-fib ([facility]) ([facility]) 08/18/2023 Tobacco abuse 10/08/2023 Plan As [...] MD Division of Hospitalist Medicine Inpatient Medical Services/[place] [facility] Anticoagulation Management Service ([facility]) Inpatient Warfarin Consult HPI: Jun Snyder is a 59 y.o. male admitted on 01/19/2025 for Complication of tracheostomy ([facility]) ([facility]) [J95.00] Past Medical History: Diagnosis Date Acute renal failure (ARF) ([facility]) 10/19/2019 Anemia 12/30/2021 Calcification of abdominal aorta ([facility]) 10/08/202309/[address] abd Diverticulosis 10/08/2023 ESRD on hemodialysis ([facility]) ([facility]) 10/26/2019 Hemodialysis patient ([facility] ([facility]) HTN (hypertension) 12/01/2022 Hypertension IgA nephropathy IgA nephropathy determined by biopsy of kidney 10/26/2019 Missed vaccination due to patient refusal 10/08/2023 Has a number of non-scientific based beliefs which interfere with his understanding and acceptance of the medical benefit of vaccination. Nonrheumatic aortic valve stenosis 10/08/2023 Paroxysmal A-fib ([facility]) ([facility]) 08/18/2023 Tobacco abuse 10/08/2023 Patient is [...] dose accordingly 3. Will facilitate f/u at [facility] upon discharge Vu Guido PharmD [facility] is available daily [phone] via Collexpo. If no response on [employer] Chat then please page [phone]. [facility] Anticoagulation Management Service ([facility]) Inpatient Warfarin Consult HPI: Jun Snyder is a 59 y.o. male admitted on 01/19/2025 for Complication of tracheostomy ([facility]) ([facility]) [J95.00] Past Medical History: Diagnosis Date Acute renal failure (ARF) ([facility]) 10/19/2019 Anemia 12/30/2021 Calcification of abdominal aorta ([facility]) 10/08/202309/[address] abd Diverticulosis 10/08/2023 ESRD on hemodialysis ([facility]) ([facility]) 10/26/2019 Hemodialysis patient ([facility] ([facility]) HTN (hypertension) 12/01/2022 Hypertension IgA nephropathy IgA nephropathy determined by biopsy of kidney 10/26/2019 Missed vaccination due to patient refusal 10/08/2023 Has a number of non-scientific based beliefs which interfere with his understanding and acceptance of the medical benefit of vaccination. Nonrheumatic aortic valve stenosis 10/08/2023 Paroxysmal A-fib ([facility]) ([facility]) 08/18/2023 Tobacco abuse 10/08/2023 Patient is [...] dose accordingly 3. Will facilitate f/u at [facility] upon discharge Vu Guido PharmD [facility] is available daily [phone] via Collexpo. If no response on [employer] Chat then please page [phone]. [facility] Respiratory Care Department Progress Note As [...] care of this patient, [facility] Nephrology Progress Note Mr. Jun Snyder is [...] MD 01/27/2025 7:11 AM [facility] [address] [place] [address], [address] [place] [address] Office: [phone] ICU Progress Note Name: Jun Snyder : 1965(59 y.o.) Date: 01/27/25 Team: MICU Attending: DARRYN HIGGINS Subjective: Hospital Summary: Jun Snyder is a 59 y.o. male who who presented to [facility] 01/19 after inadvertent removal of his [...] Normal [] Scar/Lesion/Mass Inspection of teeth/lips/gums Dentition: [x]Resighini Teeth []Dentures Lips/Gums: [x]Intact []Lesion Present Mucosa: [x]Harold []Moist []Dry Neck: External Appearance Overall Appearance: [...] displayed. ABGs: No results for input(s): "PHART", "KXC2QPE", "PO2ART", "UMC9ATX", "SO2ART", "H8FMXMSY" in the last 72 hours. Lactic Acid: [...] H/H and PT/INR q12 - Diet per HEALTH CARE FACILITIES INSPECTOR recs Appreciate Recs: Pureed solids and [...] daily, pharmacy to dose ESRD (on [facility]) HAGMA - improving Hypotension, chronic [...] and warfarin Disposition: Stable for Transfer to [facility] Cosigned by Darryn Higgins MD at [...] PT/OT - Remains stable for transfer to [facility]. Code Status: Full Code Disposition: ok for [facility] Time spent preparing to see the patient, obtaining/reviewing separately obtained history, completing an appropriate medical examination of the patient, ordering medications/tests/procedures, documenting clinical information on the EMR, and/or coordinating care is a subsequent visit: 35 minutes (Level II). Darryn Higgins MD Pulmonary and Critical Care Medicine Attending Pager #[phone] Images from the original note were not included. PHYSICAL THERAPY [facility] Name/MRN: Jair Snyder ([id number]) Date: 01/26/2025 Attempt Note Pt on iHD. Will re-attempt as able. Chantal Rossi PT [facility] Progress Note Mr. Jun Snyder is [...] this time. Output monitoring ongoing -- no Apyne catheter, tracking via clinical assessment. Weight today: [...] status and labs. Please message me through Workana chat with any questions or concerns. Wellington Nicole MD 01/26/2025 1:55 PM [facility] [address], [address] [place] [address] Office: [phone] Speech-Language Pathology Pt is a hold at this time, as he is receiving dialysis. Will re-attempt next date as schedule permits. Treva Mccallum MS. CCC-HEALTH CARE FACILITIES INSPECTOR ICU Transfer Checklist Hospital course: 59 y.o. male [facility] trach s/p removal, peg, HTN, afib, ESRD on TTS HD, aortic stenosis s/p mechanical valve who presented to [facility] 01/19 after inadvertent removal of [...] convert to PO if able) None Anticipated [place] Medications (ICU initiated) or Dose Changes and Indication No Permanently Discontinued Home Medications and Reason for medication contraindication No Payne Catheter (please remove if able. Note: place DC order) No Central Line (please remove if able. Note: place DC order) No Transfer Discussed with: Dr. Russell, [place] If additional questions for ICU team within 24 hours of ICU transfer, page semiconductor development technician ICU resident for clarifications. [facility] Anticoagulation Management Service (SAILAJA) Inpatient Warfarin Consult HPI: Jun Snyder is a 59 y.o. male admitted on 01/19/2025 for Complication of tracheostomy ([facility]) ([facility]) [J95.00] Past Medical History: Diagnosis Date Acute renal failure (ARF) ([facility]) 10/19/2019 Anemia 12/30/2021 Calcification of abdominal aorta ([facility]) 10/08/202309/[address] abd Diverticulosis 10/08/2023 ESRD on hemodialysis ([facility]) ([facility]) 10/26/2019 Hemodialysis patient ([facility]) ([facility]) HTN (hypertension) 12/01/2022 Hypertension IgA nephropathy IgA nephropathy determined by biopsy of kidney 10/26/2019 Missed vaccination due to patient refusal 10/08/2023 Has a number of non-scientific based beliefs which interfere with his understanding and acceptance of the medical benefit of vaccination. Nonrheumatic aortic valve stenosis 10/08/2023 Paroxysmal A-fib ([facility]) ([facility]) 08/18/2023 Tobacco abuse 10/08/2023 Patient is [...] dose accordingly 3. Will facilitate f/u at [facility] upon discharge Adalberto Deleon PharmD [facility] is available daily [phone] via Collexpo. If no response on [employer] Chat then please page [phone]. Images from the original note were not included. [facility] - Infectious Diseases Attending [...] Lab Results Component Value Date/Time NA 136 01/26/20258 K 5.1 01/26/2025 0248 CL 100 01/26/2025 0248 CO2 20 (L) 01/26/2025247 BUN 19 01/26/2025247 CREATININE 3.37 (H) 01/26/2025247 CREATININE 9.99 (H) 10/27/2019 0545 GLUCOSE 75 01/26/2025247 CALCIUM 9.0 01/26/2025 0248 PROT 7.6 01/22/2025 [...] the original note were not included. [facility] Wound Care Progress Note Jun [...] diverticulosis, IgA nephropathy, severe that presented to [facility] ED from a facility due to trach dislodgement. Wound Care consulted for Pressure Injury sacrum and Ischemic ulcers to left toes" Patient resting in [place] with floor RN present at bedside. Wound vac changed at time of visit with patient tolerating well. Denies any needs. PAST MEDICAL HISTORY Past Medical History: Diagnosis Date Acute renal failure (ARF) ([facility]) 10/19/2019 Anemia 12/30/2021 Calcification of abdominal aorta ([facility]) 10/08/202309/[address] abd Diverticulosis 10/08/2023 ESRD on hemodialysis ([facility]) ([facility]) 10/26/2019 Hemodialysis patient ([facility]) ([facility]) HTN (hypertension) 12/01/2022 Hypertension IgA nephropathy IgA nephropathy determined by biopsy of kidney 10/26/2019 Missed vaccination due to patient refusal 10/08/2023 Has a number of non-scientific based beliefs which interfere with his understanding and acceptance of the medical benefit of vaccination. Nonrheumatic aortic valve stenosis 10/08/2023 Paroxysmal A-fib ([facility]) ([facility]) 08/18/2023 Tobacco abuse 10/08/2023 PAST SURGICAL [...] Medication Sig Dispense Refill epoetin rowan-epbx (Retacrit) 84474 UNIT/ML injection Inject 0.79 mL (7,900 Units) [...] apply Betadine and allow to dry, leave SHEET ROCK TAPER daily and PRN -Recommend PVRs for circulation check Nutritional support Wound Care to follow Recommend to follow up at [facility] Outpatient wound care center after [...] applied by Jesus Lacy RN and Wanda Sangita RN Cosigned by Ahsan Gill DO at 01/29/2025 4:37 PM EDT ICU Progress Note Name: Jun Snyder : 1965(59 y.o.) Date: 01/26/25 Team: MICU Attending: DARRYN HIGGINS Subjective: Hospital Summary: Jun Snyder is a 59 y.o. male who who presented to [facility] 01/19 after inadvertent removal of his [...] Infusions:heparin, 5-30 Units/kg/hr, Last Rate: 9 Units/kg/hr (05/02/25 0339) sodium chloride, 20 mL/hr, Last Rate: 20 [...] (Active) Date First Assessed/Time First Assessed: 11/15/24 221 Present on Original Admission: No Primary Wound [...] Normal [] Scar/Lesion/Mass Inspection of teeth/lips/gums Dentition: [x]Resighini Teeth []Dentures Lips/Gums: [x]Intact []Lesion Present Mucosa: [x]Harold []Moist []Dry Neck: External Appearance Overall Appearance: [x]Normal []Lesion/Mass/Crepitus Present Trachea midline: [x]Yes []No tracheostomy site clean and dry. Thyroid [x]Normal []Enlarged []Tender []Mass []Absent Respiratory: Respiratory effort []Labored [x]Non-Labored [] Mechanically-Ventilated Auscultation [x]Clear []Crackles []Wheezes []Rhonchi Cardiovascular: Auscultation Rate: [x]Regular []Irregular []Tachycardia []Bradycardia Rhythm: [x]Regular []Irregular Murmur: [x]Present []Absent s/p 23mm [place] mechanical- 1/16/25 Extremities Peripheral Edema: []Present [x]Absent Varicosities: []Present [...] displayed. ABGs: No results for input(s): "PHART", "PPS5DPB", "PO2ART", "KNU7QHO", "SO2ART", "S7IQTYYD" in the last 72 hours. Lactic Acid: [...] Problem: Complication of tracheostomy (CMS/HCC) ([facility]) Active Problems: Severe malnutrition (CMS/HCC) ([facility]) BRBPR (bright red blood per rectum) [...] peripheral blood smear pending - Diet per HEALTH CARE FACILITIES INSPECTOR recs - continue q12 H/H and [...] apply Betadine and allow to dry, leave SHEET ROCK TAPER daily and PRN - PVRs for circulation [...] on heparin and warfarin Disposition: Transfer to [facility] Cosigned by Darryn Higgins MD at [...] hemoglobin stable today. Stable for transfer to [facility]. Code Status: Full Code Disposition: Transfer to [facility] Time spent preparing to see the patient, obtaining/reviewing separately obtained history, completing an appropriate medical examination of the patient, ordering medications/tests/procedures, documenting clinical information on the EMR, and/or coordinating care is a subsequent visit: 35 minutes (Level II). Darryn Higgins MD Pulmonary and Critical Care Medicine Attending Pager #[phone] Images from the original note were not [...] PCR- negative 01/02- sacralwound cx- ASE, skin lia, Clostridium clostridioforme 01/01- blood cx- negative 12/30- [...] exclusive of time spent performing procedures. Radha eYe MD ICU Transfer Checklist Hospital course: 59 y.o. male [facility] trach s/p removal, peg, HTN, afib, ESRD on TTS HD, aortic stenosis s/p mechanical valve who presented to [facility] 01/19 after inadvertent removal of [...] convert to PO if able) None Anticipated [place] Medications (ICU initiated) or Dose Changes and Indication No Permanently Discontinued Home Medications and Reason for medication contraindication No Payne Catheter (please remove if able. Note: place DC order) No Central Line (please remove if able. Note: place DC order) No Transfer Discussed with: Dr. Russell [place] If additional questions for ICU team within 24 hours of ICU transfer, page semiconductor development technician ICU resident for clarifications. Images from [...] swallow). Pt would benefit from skilled acute HEALTH CARE FACILITIES INSPECTOR services to ensure diet tolerance, train [...] Date Acute renal failure (ARF) ([facility]) 10/19/2019 Anemia 12/30/2021 Calcification of abdominal aorta ([facility]) 10/08/202309/[address] abd Diverticulosis 10/08/2023 ESRD on hemodialysis ([facility]) ([facility]) 10/26/2019 Hemodialysis patient ([facility]) ([facility]) HTN (hypertension) 12/01/2022 Hypertension IgA nephropathy IgA nephropathy determined by biopsy of kidney 10/26/2019 Missed vaccination due to patient refusal 10/08/2023 Has a number of non-scientific based beliefs which interfere with his understanding and acceptance of the medical benefit of vaccination. Nonrheumatic aortic valve stenosis 10/08/2023 Paroxysmal A-fib ([facility]) ([facility]) 08/18/2023 Tobacco abuse 10/08/2023 Past Surgical [...] PROCEDURES IR FISTULAGRAM 08/07/2022 IR FISTULAGRAM 08/07/2022 [facility] IR IMAGING TONSILLECTOMY (HISTORICAL) Admission Diagnosis: Patient Active Problem List Diagnosis Date Noted Severe malnutrition ([facility]) ([facility]) 01/19/2025 Complication of tracheostomy ([facility]) ([facility]) 01/19/2025 terminal clerk (current) use of antibiotics 01/12/2025 Acute respiratory failure with hypoxia ([facility]) [J96.01] 01/08/2025 Tracheostomy care ([facility]) [Z43.0] 01/08/2025 Pulmonary embolism ([facility]) 01/08/2025 Sacral osteomyelitis ([facility]) ([facility]) 01/03/2025 Pneumonia of both lungs due to methicillin susceptible Staphylococcus aureus (MSSA) ([facility]) 01/01/2025 Leukocytosis 12/30/2024 Decubitus ulcer of sacral region, unstageable ([facility]) 12/30/2024 Peritonitis due to fungus ([facility]) 11/30/2024 History of abdominal surgery 11/30/2024 Leg DVT (deep venous thromboembolism), acute, left ([facility]) 11/30/2024 Ischemic ulcer of toe of left foot, limited to breakdown of skin ([facility]) 11/30/2024 Tracheostomy dependence ([facility]) 11/30/2024 Pleural effusion 11/28/2024 Gastric ulceration 2024 Atrial flutter, unspecified type ([facility]) 10/03/2024 RSV (acute bronchiolitis due to respiratory syncytial virus) 10/03/2024 Diverticulosis 10/08/2023 Nonrheumatic aortic valve stenosis 10/08/2023 Calcification of abdominal aorta ([facility]) 10/08/2023 Missed vaccination due to patient refusal 10/08/2023 Tobacco abuse 10/08/2023 Alcohol use disorder in remission 10/08/2023 Paroxysmal A-fib ([facility]) ([facility]) 08/18/2023 HTN (hypertension) 12/01/2022 ESRD on hemodialysis ([facility]) ([facility]) 10/26/2019 IgA nephropathy determined by biopsy of kidney 10/26/2019 BRBPR (bright red blood per rectum) 01/19/2025 Aortic stenosis 10/03/2024 Upper GI bleed 10/03/2024 S/P AVR 10/03/2024 Acute hypoxic respiratory failure ([facility]) 10/03/2024 Acute encephalopathy 10/03/2024 Pneumoperitoneum 10/03/2024 Anemia 12/30/2021 Pain: Pt denies any current pain. Reason for current admission: Patient is a 59 yo male with a PMH of Trach and peg, HTN, paroxysmal a-fib, R occipital ICH, Tobacco abuse, ARF - dialysis (TTS; LUE AVF), diverticulosis, IgA nephropathy, severe that presented to [facility] ED from a facility due [...] Expected End: 02/02/25 Resolved: 01/25/25 Therapy Time HEALTH CARE FACILITIES INSPECTOR Individual Minutes Time In: 1145 Time Out: 1205 Minutes: 20 Christina Nunez MA, CCC/HEALTH CARE FACILITIES INSPECTOR [facility] Anticoagulation Management Service (SAILAJA) Inpatient Warfarin Consult HPI: Jun Snyder is a 59 y.o. male admitted on 01/19/2025 for Complication of tracheostomy ([facility]) ([facility]) [J95.00] Past Medical History: Diagnosis Date Acute renal failure (ARF) ([facility]) 10/19/2019 Anemia 12/30/2021 Calcification of abdominal aorta ([facility]) 10/08/202309/[address] abd Diverticulosis 10/08/2023 ESRD on hemodialysis ([facility]) ([facility]) 10/26/2019 Hemodialysis patient ([facility]) ([facility]) HTN (hypertension) 12/01/2022 Hypertension IgA nephropathy IgA nephropathy determined by biopsy of kidney 10/26/2019 Missed vaccination due to patient refusal 10/08/2023 Has a number of non-scientific based beliefs which interfere with his understanding and acceptance of the medical benefit of vaccination. Nonrheumatic aortic valve stenosis 10/08/2023 Paroxysmal A-fib ([facility]) ([facility]) 08/18/2023 Tobacco abuse 10/08/2023 Patient is [...] dose accordingly 3. Will facilitate f/u at [facility] upon discharge Adalberto Deleon PharmD, PharmD [facility] is available daily [phone] via Collexpo. If no response on [employer] Chat then please page [phone]. [facility] Progress Note Mr. Jun Snyder is [...] status and labs. Please message me through Workana chat with any questions or concerns. Wellington Nicole MD 01/25/2025 11:44 AM [facility] [address], [address] [place] [address] Office: [phone] Images from the original note were not [...] time - planning to eventually discharge to [facility] - will forward chart to [...] AV replacement Supratherapeutic INR - [employer] valve in 09/2024 - coumadin held due to bleeding and supratherapeutic levels Chronic respiratory failure s/p tracheostomy Tracheostomy dislodgement - has been saturating well without trach on RA so has not been replaced Palliative Care Encounter - Code Status: Full Code - Jun Snyder has been seen in consultation by [facility] Palliative Care during their [...] Palliative Care IDT members involved: Palliative Care Lithostripper Discussed the plan of care with the [...] to have bile peritonitis" 11/28/24: transferred to [facility] He ended up developing sacral ulcer and osteomyelitis at [facility]. He then ended up dislodging his [...] much better. Planning to eventually discharge to [facility]. Discussed trying to get palliative care to [...] child(rocky) Living status: SNF Work history: unknown [employer] status: unknown [employer] annette: Non-Congregational ROS: See palliative care ROS/ESAS below; All other systems were reviewed and are negative. [place] Symptom Assessment Score [place] Score Pain Score (if non-verbal, add .FLACC [...] 59 y.o. male who who presented to [facility] 01/19 after inadvertent removal of his [...] Normal [] Scar/Lesion/Mass Inspection of teeth/lips/gums Dentition: [x]Resighini Teeth []Dentures Lips/Gums: [x]Intact []Lesion Present Mucosa: [x]Harold []Moist []Dry Neck: External Appearance Overall Appearance: [...] last 24 hours- BMP: Recent Labs 01/23/25 04301/24/2542801/24/25121601/25/25 0251 NA 140 139 138 138 K [...] 01/23/25 0626 01/23/25 2317 01/24/25 0429 01/24/25 12101/25/25 0251 GLUCOSE -- -- -- 80 -- [...] 19.2* ABGs: No results for input(s): "PHART", "HYU8GWU", "PO2ART", "LFV3PKW", "SO2ART", "R9TRLEMO" in the last 72 hours. Lactic Acid: [...] Problem: Complication of tracheostomy (CMS/HCC) ([facility]) Active Problems: Severe malnutrition (CMS/HCC) ([facility]) BRBPR (bright red blood per rectum) [...] peripheral blood smear pending - Diet per HEALTH CARE FACILITIES INSPECTOR recs - continue q12 H/H and [...] Prophylaxis: SCDs warfarin held Disposition: Transfer to [facility] Cosigned by Darryn Higgins MD at [...] and appropriate. If stable can transfer to [facility]. Code Status: Full Code Disposition: Transfer to [facility] Time spent preparing to see the patient, obtaining/reviewing separately obtained history, completing an appropriate medical examination of the patient, ordering medications/tests/procedures, documenting clinical information on the EMR, and/or coordinating care is a subsequent visit: 35 minutes (Level II). Darryn Higgins MD Pulmonary and Critical Care Medicine Attending Pager #[phone] Images from the original note were not [...] be of moderate complexity. Mikala MORAN PA-C [facility] Infectious Disease [facility] Progress Note Mr. Jun Snyder is [...] MD 01/24/2025 3:17 PM [facility] [address], [address] [place] [id number] Office: [phone] Nutrition Assessment Type and Reason for Visit: [...] pt was receiving and tolerating while at [facility]. Noted HEALTH CARE FACILITIES INSPECTOR is following- trach remains out and pt stable without it. HEALTH CARE FACILITIES INSPECTOR most recently recommended MBSS completion- will follow and monitor HEALTH CARE FACILITIES INSPECTOR recs and need for adjustment in [...] the ICU after he initially presented to [facility] ED on 01/19/25 due to [...] and also left toes 1-4 arterial ulcers, HEALTH CARE FACILITIES INSPECTOR remains following- yesterday noted recs to [...] able to be re-initiated as well as HEALTH CARE FACILITIES INSPECTOR recs for possible diet advancement s/p [...] bedscale, 10/31: 200#, 11/28: 161#, 01/18: 142#) Universal Body Weight (lbs) (Calculated): 166 lbs Universal Body Weight (Kg) (Calculated): 75 kg % Universal Body Weight (Calculated): 78.2 % BMI (kg/m2) [...] determine [address] Contact: available via Modelinia or *[phone] [facility] Anticoagulation Management Service ([facility]JA) Inpatient Warfarin Consult HPI: Jun Snyder is a 59 y.o. male admitted on 01/19/2025 for Complication of tracheostomy ([facility]) ([facility]) [J95.00] Past Medical History: Diagnosis Date Acute renal failure (ARF) ([facility]) 10/19/2019 Anemia 12/30/2021 Calcification of abdominal aorta ([facility]) 10/08/202309/[address] abd Diverticulosis 10/08/2023 ESRD on hemodialysis ([facility]) ([facility]) 10/26/2019 Hemodialysis patient ([facility]) ([facility]) HTN (hypertension) 12/01/2022 Hypertension IgA nephropathy IgA nephropathy determined by biopsy of kidney 10/26/2019 Missed vaccination due to patient refusal 10/08/2023 Has a number of non-scientific based beliefs which interfere with his understanding and acceptance of the medical benefit of vaccination. Nonrheumatic aortic valve stenosis 10/08/2023 Paroxysmal A-fib ([facility]) ([facility]) 08/18/2023 Tobacco abuse 10/08/2023 Patient is [...] dose accordingly 3. Will facilitate f/u at [facility] upon discharge Fatuma Odonnell RPh, PharmD [facility] is available daily [phone] via Collexpo. If no response on [employer] Chat then please page [phone]. ICU Progress Note Name: Jun Snyder : 1965(59 y.o.) Date: 01/24/25 Team: MICU Attending: Dr. Higgins Subjective: Hospital Summary: Mr Snyder is a 59 year old male who presented to [facility] 01/19 after inadvertent removal of his [...] kg/m . I/O: 01/23 700 - 01/24 0659 In: 4496 [I.V.:410] Out: [...] Normal [] Scar/Lesion/Mass Inspection of teeth/lips/gums Dentition: []Resighini Teeth []Dentures Lips/Gums: []Intact []Lesion Present Mucosa: [x]Harold []Moist [x]Dry Neck: External Appearance Overall Appearance: [...] the last 72 hours. CBC: Recent Labs 01/23/2542901/23/25 15101/24/25 0610 WBC 11.1* 10.9* 11.5* HGB 7.3* 7.9* 7.9* 8.0* HCT 23.4* 25.3* 25.1* 27.0* PLT 345 346 355 MCV 88.6 89.4 94.1 RDW 18.5* 18.8* 19.4* ABGs: No results for input(s): "PHART", "VCZ6NBT", "PO2ART", "EBO1DCJ", "SO2ART", "D5MNUWLZ" in the last 72 hours. Lactic Acid: No results for input(s): "LACTATE" in the last 72 hours. INR: Recent Labs 01/23/25 04301/23/25 15101/24/25 0429 INR 2.0* 1.6* 1.5* Cardiac Injury [...] clean toes w NS, apply betadine, leave SHEET ROCK TAPER - PVRs for circulation check - rec [...] post scope if stable can transfer to [facility] tomorrow Code Status: Full Code Disposition: Remain in ICU Time spent preparing to see the patient, obtaining/reviewing separately obtained history, completing an appropriate medical examination of the patient, ordering medications/tests/procedures, documenting clinical information on the EMR, and/or coordinating care is a subsequent visit: 35 minutes (Level II). Darryn Higgins MD Pulmonary and Critical Care Medicine Attending Pager #[phone] [facility] Progress Note Mr. Jun Snyder is [...] Nicole MD 01/23/2025 5:03 PM [facility] [address] [place] [address], [address] [place] [address] Office: [phone] Images from the original note were not [...] Start: 01/19/25 Expected End: 02/02/25 Therapy Time HEALTH CARE FACILITIES INSPECTOR Individual Minutes Time In: 1315 Time [...] be of moderate complexity. Mikala MORAN PA-C [facility] Infectious Disease Images from the original note [...] Results from last 7 days Lab Units 01/23/250 01/22/25 0419 01/21/25 0243 SODIUM mmol/L 140 [...] last 7 days Lab Units 01/23/25 04301/22/259 01/21/25 0243 MAGNESIUM mg/dL 2.1 2.6 2.5 [...] Active Problem List Diagnosis Anemia Paroxysmal A-fib ([facility] HEALTHCARE/HCC) ([facility]) HTN (hypertension) ESRD on hemodialysis ([facility]) ([facility]) IgA nephropathy determined by biopsy of kidney Diverticulosis Nonrheumatic aortic valve stenosis Calcification of abdominal aorta ([facility]) Missed vaccination due to patient refusal [...] methicillin susceptible Staphylococcus aureus (MSSA) ([facility]) Sacral osteomyelitis ([facility]/HCC) (HCC) Acute respiratory failure with hypoxia ([facility]) [J96.01] Tracheostomy care ([facility]) [Z43.0] Pulmonary embolism ([facility]) terminal clerk (current) use of antibiotics Complication of tracheostomy ([facility]) ([facility]) BRBPR (bright red blood per rectum) I have personally performed a face to face diagnostic evaluation on this patient. I have reviewed and agree with the care plan as documented above by my DOCUMENT CLERK/PAMitzyC. I personally discussed the review of systems [...] []SW/TCC []Other Total Care Time (combined between DOCUMENT CLERK/PA-C and myself) throughout the day today was >= 35 minutes (including chart/data review/analysis, care coordination, and [id number]-[id number] encounter), and was spent discussing/counseling the patient/family regarding the care plan for this patient. I examined the patient independently. I reviewed relevant data myself and may have also done so in the context of team rounds. A full chart review was performed. Ivett Buckley MD Division of Trauma Department of Surgery [facility] Images from the original note were not [...] sodium chloride 0.9 % 100 mL IVPB (Add-[place]), 3,000 mg, IntraVENous, q12h, Steve Lassiter MD, [...] 59 year old male who presented to [facility] 01/19 after inadvertent removal of his [...] 14 (01/23/25 06) SpO2 97 % (01/23/25 0600) Weight 58.9 kg (129 lb 13.6 oz) [...] Normal [] Scar/Lesion/Mass Inspection of teeth/lips/gums Dentition: []Resighini Teeth []Dentures Lips/Gums: []Intact []Lesion Present Mucosa: []Harold []Moist []Dry Neck: External Appearance Overall Appearance: [...] 18.5* ABGs: No results for input(s): "PHART", "SCF1IEZ", "PO2ART", "EWZ1RHH", "SO2ART", "Q5FTLZGE" in the last 72 hours. Lactic Acid: [...] Problem: Complication of tracheostomy (CMS/HCC) ([facility]) Active Problems: Severe malnutrition (CMS/HCC) ([facility]) GI Bleed, worsened by Warfarin Non-bleeding [...] setting of GI bleed Disposition: Transfer to [facility] Cosigned by Darryn Higgins MD at 01/23/2025 10:56 AM EDT Associated attestation - Darryn Higgins MD - 01/23/2025 10:56 AM EDT I have personally seen the patient and examined along with the resident. I personally obtained the frnacis and relevent portions of the history and [...] Pulmonary and Critical Care Medicine Attending Pager #[phone] [facility] Respiratory Care Department Progress Note As part [...] care of this patient, [facility]phrology Progress Note Mr. Jun Snyder is [...] status and labs. Please message me through [employer] chat with any questions or concerns. Wellington Nicole MD 01/22/2025 3:30 PM [facility] [address], [address] [place] [address] Office: [phone] Images from the original note were not [...] Labs: Recent Labs 01/20/25 0514 01/21/25 0243 01/22/259 NA 135* 135* 132* K 4.8 4.3 [...] sputum cx- MSSA, resp ila Previous (ACH) 3/4- L pleural fluid- negative 11/16- abd fluid [...] PCR- coronavirus, RSV 10/16- BAL cx- resp lia 10/11- GI PCR- negative 10/03- blood cx- [...] wound debrided to bone on 01/02 at [facility] (Cx with E faecalis and Clostridium). [...] be of moderate complexity. Mikala MORAN PA-C [facility] Infectious Disease Speech-Language Pathology Spoke with the RN. Patient remains decanulated and doing well on Room Air. Patient is currently NPO for GI. Will defer dysphagia plan of care until patient is cleared to resume TF or a PO diet. Christina Limon MS, CCC/HEALTH CARE FACILITIES INSPECTOR Images from the original note were [...] sodium chloride 0.9 % 100 mL IVPB (Add-[place]), 3,000 mg, IntraVENous, q12h, Steve Lassiter MD, [...] Intake/Output Summary (Last 24 hours) at 01/22/2025 0770 Last data filed at 01/22/2025 0537 Gross [...] Results from last 7 days Lab Units 01/22/2541801/21/258 01/21/25 1452 01/21/25 0908 01/21/25242 WBC AUTO [...] Acute respiratory failure with hypoxia ([facility]) [J96.01] Tracheostomy care ([facility]) [Z43.0] Pulmonary embolism ([facility]) terminal clerk (current) use of antibiotics Complication of tracheostomy (CMS/HCC) ([facility]) I personally supervised the resident in [...] MD Division of Trauma Department of Surgery [facility] ICU Progress Note Name: Jun Snyder : 1965(59 y.o.) Date: 01/22/25 Team: MICU Attending: Dr. Higgins Subjective: Hospital Summary: Mr Snyder is a 59 year old male who presented to [facility] 01/19 after inadvertent removal of his [...] Normal [] Scar/Lesion/Mass Inspection of teeth/lips/gums Dentition: []Resighini Teeth []Dentures Lips/Gums: []Intact []Lesion Present Mucosa: [x]Harold []Moist [x]Dry Neck: External Appearance Overall Appearance: [...] PHOS 6.1* 5.3* 6.8* LFTs: Recent Labs 01/22/25 0419 AST 51* [...] 18.6* ABGs: No results for input(s): "PHART", "YWC2VOU", "PO2ART", "FXF8AMP", "SO2ART", "F3KNVKCY" in the last 72 hours. Lactic Acid: [...] Pulmonary and Critical Care Medicine Attending Pager #[phone] [facility] Progress Note SUBJECTIVE: Jun Snyder [...] sodium chloride 0.9 % 100 mL IVPB (Add-[place]), 3,000 mg, IntraVENous, q12h, Steve Lassiter MD, [...] Problem List Diagnosis Date Noted Severe malnutrition ([facility]) ([facility]) 01/19/2025 Complication of tracheostomy ([facility]) ([facility]) 01/19/2025 terminal clerk (current) use of antibiotics 01/12/2025 Acute respiratory failure with hypoxia ([facility]) [J96.01] 01/08/2025 Tracheostomy care ([facility]) [Z43.0] 01/08/2025 Pulmonary embolism ([facility]) 01/08/2025 Sacral osteomyelitis ([facility]) ([facility]) 01/03/2025 Pneumonia of both lungs due to methicillin susceptible Staphylococcus aureus (MSSA) ([facility]) 01/01/2025 Leukocytosis 12/30/2024 Decubitus ulcer of sacral region, unstageable ([facility]) 12/30/2024 Peritonitis due to fungus ([facility]) 11/30/2024 History of abdominal surgery 11/30/2024 Leg DVT (deep venous thromboembolism), acute, left ([facility]) 11/30/2024 Ischemic ulcer of toe of left foot, limited to breakdown of skin ([facility]) 11/30/2024 Tracheostomy dependence ([facility]) 11/30/2024 Pleural effusion 11/28/2024 Gastric ulceration 2024 Atrial flutter, unspecified type ([facility]) 10/03/2024 RSV (acute bronchiolitis due to respiratory syncytial virus) 10/03/2024 Diverticulosis 10/08/2023 Nonrheumatic aortic valve stenosis 10/08/2023 Calcification of abdominal aorta ([facility]) 10/08/2023 Missed vaccination due to patient refusal 10/08/2023 Tobacco abuse 10/08/2023 Alcohol use disorder in remission 10/08/2023 Paroxysmal A-fib ([facility]) ([facility]) 08/18/2023 HTN (hypertension) 12/01/2022 ESRD on hemodialysis ([facility]) ([facility]) 10/26/2019 IgA nephropathy determined by biopsy of kidney 10/26/2019 Aortic stenosis 10/03/2024 Upper GI bleed 10/03/2024 S/P AVR 10/03/2024 Acute hypoxic respiratory failure ([facility]) 10/03/2024 Acute encephalopathy 10/03/2024 Pneumoperitoneum 10/03/2024 Anemia 12/30/2021 ASSESSMENT/PLAN: ESRD. HD MWF schedule Anemia. PRBC if Hb less than 7 GI bleed. Gastroenterology following Cindy Patel MD 01/21/2025 4:54 PM Family Communication Number Called: [phone] Name of Designated Family Acreage Reporter: Omar son I spoke with the individual listed above Family Acreage Reporter Updated on the Following: - Updated Omar [...] sodium chloride 0.9 % 100 mL IVPB (Add-[place]), 3,000 mg, IntraVENous, q12h, Steve Lassiter MD, [...] Impression [facility] 1965 [id number] Exam Date/Time: 01/20/2025 17:02 Procedure: CT ABDOMEN [...] proceed with planned procedure. Parth VASQUEZ Gastroenterology [facility] Progress Note SUBJECTIVE: Jun Snyder [...] sodium chloride 0.9 % 100 mL IVPB (Add-[place]), 3,000 mg, IntraVENous, q12h, Steve Lassiter MD, [...] Problem List Diagnosis Date Noted Severe malnutrition ([facility]) ([facility]) 01/19/2025 Complication of tracheostomy ([facility]) ([facility]) 01/19/2025 terminal clerk (current) use of antibiotics 01/12/2025 Acute respiratory failure with hypoxia ([facility]) [J96.01] 01/08/2025 Tracheostomy care ([facility]) [Z43.0] 01/08/2025 Pulmonary embolism ([facility]) 01/08/2025 Sacral osteomyelitis ([facility]) ([facility]) 01/03/2025 Pneumonia of both lungs due to methicillin susceptible Staphylococcus aureus (MSSA) ([facility]) 01/01/2025 Leukocytosis 12/30/2024 Decubitus ulcer of sacral region, unstageable ([facility]) 12/30/2024 Peritonitis due to fungus ([facility]) 11/30/2024 History of abdominal surgery 11/30/2024 Leg DVT (deep venous thromboembolism), acute, left ([facility]) 11/30/2024 Ischemic ulcer of toe of left foot, limited to breakdown of skin ([facility]) 11/30/2024 Tracheostomy dependence ([facility]) 11/30/2024 Pleural effusion 11/28/2024 Gastric ulceration 2024 Atrial flutter, unspecified type ([facility]) 10/03/2024 RSV (acute bronchiolitis due to respiratory syncytial virus) 10/03/2024 Diverticulosis 10/08/2023 Nonrheumatic aortic valve stenosis 10/08/2023 Calcification of abdominal aorta ([facility]) 10/08/2023 Missed vaccination due to patient refusal 10/08/2023 Tobacco abuse 10/08/2023 Alcohol use disorder in remission 10/08/2023 Paroxysmal A-fib ([facility]) ([facility]) 08/18/2023 HTN (hypertension) 12/01/2022 ESRD on hemodialysis ([facility]) ([facility]) 10/26/2019 IgA nephropathy determined by biopsy of kidney 10/26/2019 Aortic stenosis 10/03/2024 Upper GI bleed 10/03/2024 S/P AVR 10/03/2024 Acute hypoxic respiratory failure ([facility]) 10/03/2024 Acute encephalopathy 10/03/2024 Pneumoperitoneum 10/03/2024 [...] [facility] Initial Evaluation Name/MRN: Jair Snyder ([id number]) Evaluation Date: 01/20/2025 Date of : 1965 Admission Date: 01/19/2025 2:13 AM Age: 59 y.o. [facility] Discharge Recommendation[facility] Other: DME TBD Assessment IMPRESSION: Pt [...] planned discharge. Admitting Diagnosis: Complication of tracheostomy ([facility]) ([facility]) Performance Deficits /Impairments: Decreased Functional Mobility, [...] Date Acute renal failure (ARF) ([facility]) 10/19/2019 Anemia 12/30/2021 Calcification of abdominal aorta ([facility]) 10/08/202309/[address] abd Diverticulosis 10/08/2023 ESRD on hemodialysis ([facility]) ([facility]) 10/26/2019 Hemodialysis patient ([facility]) ([facility]) HTN (hypertension) 12/01/2022 Hypertension IgA nephropathy IgA nephropathy determined by biopsy of kidney 10/26/2019 Missed vaccination due to patient refusal 10/08/2023 Has a number of non-scientific based beliefs which interfere with his understanding and acceptance of the medical benefit of vaccination. Nonrheumatic aortic valve stenosis 10/08/2023 Paroxysmal A-fib ([facility]) ([facility]) 08/18/2023 Tobacco abuse 10/08/2023 Past Surgical [...] PROCEDURES IR FISTULAGRAM 08/07/2022 IR FISTULAGRAM 08/07/2022 [facility] IR IMAGING TONSILLECTOMY (HISTORICAL) Admission Diagnosis: Patient Active Problem List Diagnosis Date Noted Severe malnutrition ([facility]) ([facility]) 01/19/2025 Complication of tracheostomy ([facility]) ([facility]) 01/19/2025 terminal clerk (current) use of antibiotics 01/12/2025 Acute respiratory failure with hypoxia ([facility]) [J96.01] 01/08/2025 Tracheostomy care ([facility]) [Z43.0] 01/08/2025 Pulmonary embolism ([facility]) 01/08/2025 Sacral osteomyelitis ([facility]) ([facility]) 01/03/2025 Pneumonia of both lungs due to methicillin susceptible Staphylococcus aureus (MSSA) ([facility]) 01/01/2025 Leukocytosis 12/30/2024 Decubitus ulcer of sacral region, unstageable ([facility]) 12/30/2024 Peritonitis due to fungus ([facility]) 11/30/2024 History of abdominal surgery 11/30/2024 Leg DVT (deep venous thromboembolism), acute, left ([facility]) 11/30/2024 Ischemic ulcer of toe of left foot, limited to breakdown of skin ([facility]) 11/30/2024 Tracheostomy dependence ([facility]) 11/30/2024 Pleural effusion 11/28/2024 Gastric ulceration 2024 Atrial flutter, unspecified type ([facility]) 10/03/2024 RSV (acute bronchiolitis due to respiratory syncytial virus) 10/03/2024 Diverticulosis 10/08/2023 Nonrheumatic aortic valve stenosis 10/08/2023 Calcification of abdominal aorta ([facility]) 10/08/2023 Missed vaccination due to patient refusal 10/08/2023 Tobacco abuse 10/08/2023 Alcohol use disorder in remission 10/08/2023 Paroxysmal A-fib ([facility]) ([facility]) 08/18/2023 HTN (hypertension) 12/01/2022 ESRD on hemodialysis ([facility]) ([facility]) 10/26/2019 IgA nephropathy determined by biopsy of kidney 10/26/2019 Aortic stenosis 10/03/2024 Upper GI bleed 10/03/2024 S/P AVR 10/03/2024 Acute hypoxic respiratory failure ([facility]) 10/03/2024 Acute encephalopathy 10/03/2024 Pneumoperitoneum 10/03/2024 [...] events, decreased short term memory, and decreased remote computer terminal operator memory - Safety judgement: decreased awareness of [...] Poor historian. Per pt he came from [facility]. Pt unable to recall living situation prior to [facility], states "I've been in and out [...] of Care supervision is transferred to a [facility] Therapy Services Occupational Therapist. Goals [...] diverticulosis, IgA nephropathy, severe that presented to [facility] ED from a facility due [...] [facility] and transferred to [facility] on 01/20. Noted removal of trach. [...] Date Acute renal failure (ARF) ([facility]) 10/19/2019 Anemia 12/30/2021 Calcification of abdominal aorta ([facility]) 10/08/202309/[address] abd Diverticulosis 10/08/2023 ESRD on hemodialysis ([facility]) ([facility]) 10/26/2019 Hemodialysis patient ([facility]) ([facility]) HTN (hypertension) 12/01/2022 Hypertension IgA nephropathy IgA nephropathy determined by biopsy of kidney 10/26/2019 Missed vaccination due to patient refusal 10/08/2023 Has a number of non-scientific based beliefs which interfere with his understanding and acceptance of the medical benefit of vaccination. Nonrheumatic aortic valve stenosis 10/08/2023 Paroxysmal A-fib ([facility]) ([facility]) 08/18/2023 Tobacco abuse 10/08/2023 LABS: CBC: [...] and limit nighttime disturbances - DVT prophylaxis: [facility] 02-01-2025 Hospital course Narrative Discharge Summary Jun Snyder : 1965 ADMIT DATE: 01/19/2025 DISCHARGE DATE: 02/01/2025 PRIMARY CARE PHYSICIAN: Leilani Troncoso VISIT STATUS: Admission CODE STATUS: Full Code DISCHARGE DIAGNOSES: Principal Problem: Complication of tracheostomy (CMS/[facility]) ([facility]) Active Problems: Severe malnutrition (CMS/HCC) ([facility]) BRBPR (bright red blood per rectum) HOSPITAL COURSE: Jun Snyder is a 59 y.o. male who who presented to [facility] 01/19 after inadvertent removal of his [...] HD successfully. hemodynamically stable. Transferred out to [facility] 01/27 ID following for sacral osteomyelitis, s/p wound debridement to bone on 01/02, cultures grew E faecalis and Clostridium, continue with renally dosed ampicillin sulbactam for 6 weeks course through 02/13/2025, needs tunneled line, status post IR CVC tunneled line on 01/29 Nephrology following, on dialysis HEALTH CARE FACILITIES INSPECTOR following PT/OT recommends SNF Patient will [...] Date Acute renal failure (ARF) ([facility]) 10/19/2019 Anemia 12/30/2021 Calcification of abdominal aorta ([facility]) 10/08/202309/[address] abd Diverticulosis 10/08/2023 ESRD on hemodialysis ([facility]) ([facility]) 10/26/2019 Hemodialysis patient ([facility]) ([facility]) HTN (hypertension) 12/01/2022 Hypertension IgA nephropathy IgA nephropathy determined by biopsy of kidney 10/26/2019 Missed vaccination due to patient refusal 10/08/2023 Has a number of non-scientific based beliefs which interfere with his understanding and acceptance of the medical benefit of vaccination. Nonrheumatic aortic valve stenosis 10/08/2023 Paroxysmal A-fib ([facility]) ([facility]) 08/18/2023 Tobacco abuse 10/08/2023 Adult diet [...] by ID -S/p tunneled central line placement -HEALTH CARE FACILITIES INSPECTOR follow, dysphagia diet -PT OT DC recommend SNF SIGNIFICANT DIAGNOSTIC STUDIES: IR cvc tunneled central line placement [[id number]] Collected: 01/30/251436 Order Status: Completed Updated: 01/30/251438 [...] FL modified barium with video and speech [[id number]] Collected: 01/25/25 1328 Order Status: Completed Updated: 01/25/25 2695 Narrative: [facility] 1965 [id number] Exam Date/Time: 01/25/2025 11:42 Procedure: FL MODIFIED [...] 3:12 PM EDT XR chest 1 view [[id number]] Collected: 01/24/25 0158 Order Status: Completed Updated: [...] pelvis angiogram w and/or wo IV contrast [[id number]] Collected: 01/20/25 1849 Order Status: Completed Updated: [...] 7:02 PM EDT XR chest 1 view [[id number]] Collected: 01/19/25614 Order Status: Completed Updated: 01/19/25616 [...] 6:16 AM EDT XR chest 1 view [[id number]] Collected: 01/18/25 1242 Order Status: Completed Updated: [...] days. CONTINUE taking these medications epoetin rowan-epbx 52960 UNIT/ML injection Commonly known as: Retacrit Inject [...] Complexity: follow up within 7-14 calendar days (46842) [] Severe Complexity: follow up within 7 calendar days (67180) FOLLOW UP TESTING, PENDING RESULTS OR REFERRALS AT TRANSITIONAL CARE VISIT: [] Yes [] No PENDING STUDIES: DISPOSITION: Skilled Facility FACILITY/HOME CARE AGENCY NAME: Follow up with [facility] [address] [place] [id number] Gurdeep Cruz MD [address] [place] [address] [address] [facility] [id number] Schedule an appointment as soon as possible [...] 02/01/2025, 10:29 AM documented in this encounter [facility] 01-29-2025 Telephone encount er Note Chart reviewed, patient appears to be sensitive to warfarin at this time and I wouldn't be able to guarantee INR remains less than 3, so opted to hold dose today. I canceled order. [facility] Work Phone: 01-29-2025 Miscellaneous Notes Formattin g of this note might be different from the original. Chart reviewed, patient appears to be sensitive to warfarin at this time and I wouldn't be able to guarantee INR remains less than 3, so opted to hold dose today. I canceled order. SWEETIE Singh with [facility] called to inform [facility] patient is scheduled to have a tunnel cath line tomorrow and Dr. Lira is inquiring if patient should hold his warfarin 0.[address] Lira does not want INR to go above to 3.0 tomorrow. Staffed with Natali Richter, PERI, CACDevin, she will cancel patient's warfarin dose tomorrow and SAILAJA will make adjustments as needed tomorrow. documented in this encounter [facility] 01-29-2025 Telephone encount er Note SWEETIE [...] SAILAJA will make adjustments as needed tomorrow. [facility] 01-26-2025 Hospital Discharg e steven Donato RN - 01/26/2025 2:43 PM EDT [...] PROCEDURES IR FISTULAGRAM 08/07/2022 IR FISTULAGRAM 08/07/2022 [facility] IR IMAGING TONSILLECTOMY (HISTORICAL) Immunization [...] Acute respiratory failure with hypoxia ([facility]) [J96.01] Tracheostomy care ([facility]) [Z43.0] Pulmonary embolism ([facility]) alf (current) use of antibiotics Anemia Aortic stenosis [...] Total assistance Toileting Total assistance Feeding Independent Twister Tender Independent Med Delivery yes Wound Care Documentation and Therapy: Wound/Incision 11/13/24 Pressure Injury Sacrum (Active) Wound Image 01/19/25 0500 Site Assessment Harold;Red 01/26/25 1200 Mahnaz-Wound Assessment Intact 01/26/25 0355 [...] Date: 01/21/25 Discharging to Facility/ Agency Name: [facility] Address: [address] [place] [address] Fax: Dialysis Facility (if applicable) Name: Address: Dialysis Schedule[facility] Phone: Fax: Aws Architect/Lithostripper signature: ICIAN SECTION Name: Jun Snyder Prognosis: fair Condition at Discharge: stable Rehab Potential (if transferring to Rehab): fair Recommended Labs or Other Treatments After Discharge: cbc,cmp, PT/INR for warfarin, C/W Ampicillin-Sulbactam till 02/13, F/U with ID The individual is being admitted to a nursing facility directly from an [facility] or a unit of a [facility] that is not operated by or licensed by [facility] under section 5119.14 or 5160-3-15.1 5 The individual requires the level of services provided by a nursing facility for the condition for which he or she was treated in the hospital and, Physician Certification: I certify the above information and transfer of Jun Snyder is necessary for the continuing treatment of the diagnosis listed and that he requires usp facility for less than 30 days. Update Admission H&P: No change in H&P PHYSICIAN SIGNATURE: documented in this encounter [facility] 01-24-2025 Procedure note Images from the [...] Safety: The patient was placed on a color television console monitor and vital signs, pulse oximetry, and [...] of the procedure. documented in this encounter [facility] 01-23-2025 Consult note Associated Order (s): INPATIENT CONSULT TO WOUND CARE PROVIDERS Images from the original note were not included. [facility] Wound Care Re-CONSULT Note Jun [...] diverticulosis, IgA nephropathy, severe that presented to [facility] ED from a facility due [...] Date Acute renal failure (ARF) ([facility]) 10/19/2019 Anemia 12/30/2021 Calcification of abdominal aorta ([facility]) 10/08/202309/[address] abd Diverticulosis 10/08/2023 ESRD on hemodialysis ([facility]) ([facility]) 10/26/2019 Hemodialysis patient ([facility]) ([facility]) HTN (hypertension) 12/01/2022 Hypertension IgA nephropathy IgA nephropathy determined by biopsy of kidney 10/26/2019 Missed vaccination due to patient refusal 10/08/2023 Has a number of non-scientific based beliefs which interfere with his understanding and acceptance of the medical benefit of vaccination. Nonrheumatic aortic valve stenosis 10/08/2023 Paroxysmal A-fib ([facility]) ([facility]) 08/18/2023 Tobacco abuse 10/08/2023 PAST SURGICAL [...] PROCEDURES IR FISTULAGRAM 08/07/2022 IR FISTULAGRAM 08/07/2022 [facility] IR IMAGING TONSILLECTOMY (HISTORICAL) FAMILY [...] Medication Sig Dispense Refill epoetin rowan-epbx (Retacrit) 95097 UNIT/ML injection Inject 0.79 mL (7,900 Units) [...] apply Betadine and allow to dry, leave SHEET ROCK TAPER daily and PRN -Recommend PVRs for circulation check Nutritional support Wound Care to follow Recommend to follow up at [facility] Outpatient wound care center after [...] Gill DO at 01/29/2025 4:37 PM EDT [facility] Anticoagulation Management Service ([facility]) Inpatient Warfarin Consult HPI: Jun Snyder is a 59 y.o. male admitted on 01/19/2025 for Complication of tracheostomy ([facility]) ([facility]) [J95.00] Past Medical History: Diagnosis Date Acute renal failure (ARF) ([facility]) 10/19/2019 Anemia 12/30/2021 Calcification of abdominal aorta ([facility]) 10/08/202309/[address] abd Diverticulosis 10/08/2023 ESRD on hemodialysis ([facility]) ([facility]) 10/26/2019 Hemodialysis patient ([facility]) ([facility]) HTN (hypertension) 12/01/2022 Hypertension IgA nephropathy [...] facility, has yet to be seen by [facility]. Pt's home dose of warfarin [...] and plan for colonoscopy tomorrow, please notify [facility] when able to resume anticoagulation. 2. Monitor for s/s of bleeding and drug interactions. Will adjust dose accordingly 3. Will facilitate f/u at [facility] upon discharge Fatuma Odonnell RPh, PharmD [facility] is available daily [phone] via [employer]. If no response on [employer] Chat then please page [phone]. Images from the original note were not [...] AV replacement Supratherapeutic INR - [employer] [facility] valve in 09/2024 - coumadin held due [...] Palliative Care IDT members involved: Palliative Care Lithostripper Discussed the plan of care with the [...] to have bile peritonitis" 11/28/24: transferred to [facility] He ended up developing sacral ulcer and osteomyelitis at [facility]. He then ended up dislodging his [...] the last several months, with being in [facility] and now back into the hospital. [...] child(rocky) Living status: SNF Work history: unknown [employer] status: unknown Baptism annette: Non-Congregational ROS: See palliative care ROS/ESAS below; All other systems were reviewed and are negative. [place] Symptom Assessment Score [place] Score Pain Score (if non-verbal, add .FLACC [...] Date Acute renal failure (ARF) ([facility]) 10/19/2019 Anemia 12/30/2021 Calcification of abdominal aorta ([facility]) 10/08/202309/[address] abd Diverticulosis 10/08/2023 ESRD on hemodialysis ([facility]) ([facility]) 10/26/2019 Hemodialysis patient ([facility]) ([facility]) HTN (hypertension) 12/01/2022 Hypertension IgA nephropathy IgA nephropathy determined by biopsy of kidney 10/26/2019 Missed vaccination due to patient refusal 10/08/2023 Has a number of non-scientific based beliefs which interfere with his understanding and acceptance of the medical benefit of vaccination. Nonrheumatic aortic valve stenosis 10/08/2023 Paroxysmal A-fib ([facility]) ([facility]) 08/18/2023 Tobacco abuse 10/08/2023 Past Surgical [...] Transition Note Initiated: yes Tex Cotto MD [facility] Anticoagulation Management Service ([facility]) Inpatient Warfarin Consult HPI: Jun Snyder is a 59 y.o. male admitted on 01/19/2025 for Complication of tracheostomy ([facility]) ([facility]) [J95.00] Past Medical History: Diagnosis Date Acute renal failure (ARF) ([facility]) 10/19/2019 Anemia 12/30/2021 Calcification of abdominal aorta ([facility]) 10/08/202309/[address] abd Diverticulosis 10/08/2023 ESRD on hemodialysis ([facility]) ([facility]) 10/26/2019 Hemodialysis patient ([facility]) ([facility]) HTN (hypertension) 12/01/2022 Hypertension IgA nephropathy IgA nephropathy determined by biopsy of kidney 10/26/2019 Missed vaccination due to patient refusal 10/08/2023 Has a number of non-scientific based beliefs which interfere with his understanding and acceptance of the medical benefit of vaccination. Nonrheumatic aortic valve stenosis 10/08/2023 Paroxysmal A-fib ([facility]) ([facility]) 08/18/2023 Tobacco abuse 10/08/2023 Patient is on warfarin for Afib, mechanical AVR and has a goal INR 2.0 - 3.0. Warfarin is currently managed by facility, has yet to be seen by [facility]. Pt's home dose of warfarin [...] possible GIB and elevated INR, please notify [facility] when able to resume anticoagulation. 2. Monitor for s/s of bleeding and drug interactions. Will adjust dose accordingly 3. Will facilitate f/u at [facility] upon discharge Fatuma Odonnell RPh, PharmD [facility] is available daily [phone] via [employer] Chat. If no response on [employer] Chat then please page [phone]. [facility] Anticoagulation Management Service ([facility]) Inpatient Warfarin Consult HPI: Jun Snyder is a 59 y.o. male admitted on 01/19/2025 for Complication of tracheostomy ([facility]) ([facility]) [J95.00] Past Medical History: Diagnosis Date Acute renal failure (ARF) ([facility]) 10/19/2019 Anemia 12/30/2021 Calcification of abdominal aorta ([facility]) 10/08/202309/[address] abd Diverticulosis 10/08/2023 ESRD on hemodialysis ([facility]) ([facility]) 10/26/2019 Hemodialysis patient ([facility]) ([facility]) HTN (hypertension) 12/01/2022 Hypertension IgA nephropathy IgA nephropathy determined by biopsy of kidney 10/26/2019 Missed vaccination due to patient refusal 10/08/2023 Has a number of non-scientific based beliefs which interfere with his understanding and acceptance of the medical benefit of vaccination. Nonrheumatic aortic valve stenosis 10/08/2023 Paroxysmal A-fib ([facility]) ([facility]) 08/18/2023 Tobacco abuse 10/08/2023 Patient is [...] dose accordingly 3. Will facilitate f/u at [facility] upon discharge Darryn Wagner RPh, PharmD [facility] is available daily [phone] via [employer]. If no response on [employer] Chat then please page [phone]. Associated Order(s): IP CONSULT TO GENERAL SURGERY [...] Date Acute renal failure (ARF) ([facility]) 10/19/2019 Anemia 12/30/2021 Calcification of abdominal aorta ([facility]) 10/08/202309/[address] abd Diverticulosis 10/08/2023 ESRD on hemodialysis ([facility]) ([facility]) 10/26/2019 Hemodialysis patient ([facility]) ([facility]) HTN (hypertension) 12/01/2022 Hypertension IgA nephropathy IgA nephropathy determined by biopsy of kidney 10/26/2019 Missed vaccination due to patient refusal 10/08/2023 Has a number of non-scientific based beliefs which interfere with his understanding and acceptance of the medical benefit of vaccination. Nonrheumatic aortic valve stenosis 10/08/2023 Paroxysmal A-fib ([facility]) ([facility]) 08/18/2023 Tobacco abuse 10/08/2023 Past Surgical [...] sodium chloride 0.9 % 100 mL IVPB (Add-[place]) 3,000 mg IntraVENous q12h Steve Lassiter MD [...] Patient Unable To Answer (12/01/2024) Received from [facility] Medical Overall Financial Resource Strain (CARDIA) Difficulty of Paying Living Expenses: Patient unable to answer Food Insecurity: Patient Unable To Answer (12/01/2024) Received from [facility] Medical Hunger Vital Sign Worried About Running Out of Food in the Last Year: Patient unable to answer Ran Out of Food in the Last Year: Patient unable to answer Transportation Needs: No Transportation Needs (01/18/2025) Received from [facility] Medical SDOH Transportation Source Has lack of transportation kept you from medical appointments or from getting medications?: No Has lack of transportation kept you from meetings, work, or from getting things needed for daily living?: No Stress: No Stress Concern Present (01/18/2025) Received from [facility] of Occupational Health - Occupational Stress Questionnaire Feeling of Stress : Not at all Social Connections: Patient Unable To Answer (12/01/2024) Received from [facility] Medical Social Connection and Isolation Panel [NHANES] Frequency of Communication with Friends and Family: Patient unable to answer Frequency of Social Gatherings with Friends and Family: Patient unable to answer Attends Baptism Services: Patient unable to answer Active Member of Clubs or Organizations: Patient unable to answer Attends Club or Organization Meetings: Patient unable to answer Marital Status: Patient unable to answer Intimate Partner Violence: Patient Unable To Answer (11/28/2024) Received from [facility] Medical Domestic Abuse Assessment Do you feel safe in your relationships at home?: Unable to assess Physical Abuse: Unable to assess Verbal Abuse: Unable to assess Housing Stability: Patient Unable To Answer (12/01/2024) Received from [facility] Medical Housing Stability Vital Sign Unable [...] LIPASE IMAGING: POCT glucose meter Performed by: [employer] [facility], [address] [place] [address] CLIA ID: [id number] POCT glucose meter Performed by: [facility], [address] [place] [id number] CLIA ID: [id number] POCT glucose meter Performed by: [facility], [address] [place] [address] [place] [address] CLIA ID: [id number] POCT glucose meter Performed by: [facility], [address] [place] [address] [place] [address] CLIA ID: [id number] POCT glucose meter Performed by: [facility], [address] [place] [address] [place] [address] CLIA ID: [id number] POCT glucose meter Performed by: [facility], [address] [place] [address], [facility]ly [facility] [address] CLIA ID: [id number] ASSESSMENT AND PLAN: Jun Snyder is a [...] Brenton Goldstein MD General Surgery PGY-1 Pager #[phone] Cosigned by Tex Brush MD at 01/22/2025 6:07 AM EDT Associated attestation - Tex Brush MD - 01/22/2025 6:07 AM EDT ATTENDING ADDENDUM Active Diagnoses/Problems this Admission: Patient Active Problem List Diagnosis Anemia Paroxysmal A-fib (CMS/HCC) ([facility]) HTN (hypertension) ESRD on hemodialysis ([facility]) ([facility]) IgA nephropathy determined by biopsy of kidney Diverticulosis Nonrheumatic aortic valve stenosis Calcification of abdominal aorta ([facility]) Missed vaccination due to patient refusal Tobacco abuse Alcohol use disorder in remission Atrial flutter, unspecified type ([facility]) RSV (acute bronchiolitis due to respiratory syncytial virus) Aortic stenosis Upper GI bleed S/P AVR Acute hypoxic respiratory failure ([facility]) Acute encephalopathy Pneumoperitoneum Gastric ulceration Severe [...] Acute respiratory failure with hypoxia ([facility]) [J96.01] Tracheostomy care ([facility]) [Z43.0] Pulmonary embolism (HCC) alf (current) use of antibiotics Complication of tracheostomy [...] Surgery Division of Trauma Department of Surgery [facility] Images from the original note were not [...] Normal [] Scar/Lesion/Mass Inspection of teeth/lips/gums Dentition: []Resighini Teeth []Dentures Lips/Gums: [x]Intact []Lesion Present Mucosa: [x]Harold []Moist [x]Dry Neck: External Appearance Overall Appearance: [...] Problem: Complication of tracheostomy (CMS/HCC) ([facility]) Active Problems: Severe malnutrition (CMS/HCC) ([facility]) Assessment: Rectal bleeding with concern for [...] 2:43 PM I have personally performed a ylna-gw-kjse diagnostic evaluation on this patient on date of service 01/21/2025. History, labs, imaging studies, and electronic medical record have been reviewed by me. This note documented by the [x]rooming house inspector []ARMIN reflects my history, exam, and medical decision making. I have reviewed and agree with the care plan. Changes were made in the orders as necessary. ROS documentation was reviewed and negative unless otherwise stated in HPI. Additional pertinent interval history, ROS, and physical exam findings: Mr Snyder is a 59 year old male who presented to [facility] 01/19 after inadvertent removal of his [...] maintain >7 -Hold coumadin -Continue protonix bid -PETROLEUM REFINING EQUIPMENT OPERATOR per nephrology, will appreciate recs -Consult general [...] CENTER on 01/19/25 as a transfer from [facility] Per patient, was trying to [...] MICU for potential discharge back to he residential facility. The MICU is consulted now for [...] Date Acute renal failure (ARF) ([facility]) 10/19/2019 Anemia 12/30/2021 Calcification of abdominal aorta ([facility]) 10/08/202309/[address] abd Diverticulosis 10/08/2023 ESRD on hemodialysis ([facility]) ([facility]) 10/26/2019 Hemodialysis patient ([facility]) ([facility]) HTN (hypertension) 12/01/2022 Hypertension IgA nephropathy IgA nephropathy determined by biopsy of kidney 10/26/2019 Missed vaccination due to patient refusal 10/08/2023 Has a number of non-scientific based beliefs which interfere with his understanding and acceptance of the medical benefit of vaccination. Nonrheumatic aortic valve stenosis 10/08/2023 Paroxysmal A-fib ([facility]) ([facility]) 08/18/2023 Tobacco abuse 10/08/2023 Past Surgical [...] Patient Unable To Answer (12/01/2024) Received from [facility] Medical Overall Financial Resource Strain (CARDIA) Difficulty of Paying Living Expenses: Patient unable to answer Food Insecurity: Patient Unable To Answer (12/01/2024) Received from [facility] Medical Hunger Vital Sign Worried About Running Out of Food in the Last Year: Patient unable to answer Ran Out of Food in the Last Year: Patient unable to answer Transportation Needs: No Transportation Needs (01/18/2025) Received from [facility] Medical SDGA Transportation Source Has lack of transportation kept you from medical appointments or from getting medications?: No Has lack of transportation kept you from meetings, work, or from getting things needed for daily living?: No Physical Activity: Not on file Stress: No Stress Concern Present (01/18/2025) Received from [facility] of Occupational Health - Occupational Stress Questionnaire Feeling of Stress : Not at all Social Connections: Patient Unable To Answer (12/01/2024) Received from [facility] Medical Social Connection and Isolation Panel [NHANES] Frequency of Communication with Friends and Family: Patient unable to answer Frequency of Social Gatherings with Friends and Family: Patient unable to answer Attends Baptism Services: Patient unable to answer Active Member of Clubs or Organizations: Patient unable to answer Attends Club or Organization Meetings: Patient unable to answer Marital Status: Patient unable to answer Intimate Partner Violence: Patient Unable To Answer (11/28/2024) Received from [facility] Medical Domestic Abuse Assessment Do you feel safe in your relationships at home?: Unable to assess Physical Abuse: Unable to assess [facility] Domestic Abuse - Type of Abuse: Not on file [facility] Domestic Abuse - Time Frame: Not on file [facility] - Signs and Symptoms: Not on file Verbal Abuse: Unable to assess [facility] Domestic Abuse - Reported To: Not on file Housing Stability: Patient Unable To Answer (12/01/2024) Received from [facility] Medical Housing Stability Vital Sign Unable to Pay for Housing in the Last Year: Patient unable to answer Number of Times Moved in the Last Year: 0 Homeless in the Last Year: Patient unable to answer Allergies Allergen Reactions Lisinopril Swelling and Angioedema Prior to Admission medications Medication Sig Start Date End Date Taking? Authorizing Provider epoetin rowan-epbx (Retacrit) 82711 UNIT/ML injection Inject 0.79 mL (7,900 Units) [...] Normal [] Scar/Lesion/Mass Inspection of teeth/lips/gums Dentition: []Resighini Teeth []Dentures Lips/Gums: [x]Intact []Lesion Present Mucosa: [x]Harold []Moist []Dry Neck: External Appearance Overall Appearance: [...] last 72 hours. Glucose: Recent Labs 01/19/25 03401/20/25 0514 GLUCOSE 85 68* Procal: No results for input(s): "PROCAL" in the last 72 hours. CBC: Recent Labs 01/19/2534101/19/25 0652 01/20/25 0514 01/20/25 0801 01/20/25 1302 WBC 11.6* 10.9* 10.5 -- -- HGB 9.1* 9.4* 6.6* 8.2* 8.2* HCT 29.1* 30.2* 21.3* 25.8* 25.7* PLT 404 416 279 -- -- MCV 87.4 87.8 88.4 -- -- RDW 18.5* 18.6* 18.3* -- -- ABGs: No results for input(s): "PHART", "CLX8XWT", "PO2ART", "NKB0ASE", "SO2ART", "D7BQFTMQ" in the last 72 hours. Lactic Acid: [...] Problem: Complication of tracheostomy (CMS/HCC) ([facility]) Active Problems: Severe malnutrition (CMS/HCC) ([facility]) Assessment: Passage of Bright red blood [...] normal BMI 18.5-24.9 Disposition: Remain on the [facility] Critical Care Time: Total critical care [...] PM EDT I have personally performed a wyjv-wo-loke diagnostic evaluation on this patient on date of service 01/20/25. History, labs, imaging studies, and electronic medical record have been reviewed by me. 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 He was transferred to [facility] on 11/28/24. There he was followed by our ID group and had had recurrent MSSA LRTI that was treated. Additionally, his sacral wound was debrided to bone on 01/02/25. Sacral wound Cx + E faecalis and Clostridium clostridioforme. He is to be on a course of Amp-Sulbactam x6 weeks through 02/13/25. He was discharged to SNF on 01/18. Patient presented to [facility] on 01/19 after self-dislodging tracheostomy. [...] Date Acute renal failure (ARF) ([facility]) 10/19/2019 Anemia 12/30/2021 Calcification of abdominal aorta ([facility]) 10/08/202309/[address] abd Diverticulosis 10/08/2023 ESRD on hemodialysis ([facility]) ([facility]) 10/26/2019 Hemodialysis patient ([facility]) ([facility]) HTN (hypertension) 12/01/2022 Hypertension IgA nephropathy IgA nephropathy determined by biopsy of kidney 10/26/2019 Missed vaccination due to patient refusal 10/08/2023 Has a number of non-scientific based beliefs which interfere with his understanding and acceptance of the medical benefit of vaccination. Nonrheumatic aortic valve stenosis 10/08/2023 Paroxysmal A-fib ([facility]) ([facility]) 08/18/2023 Tobacco abuse 10/08/2023 Past Surgical [...] PROCEDURES IR FISTULAGRAM 08/07/2022 IR FISTULAGRAM 08/07/2022 [facility] IR IMAGING TONSILLECTOMY (HISTORICAL) Current Medications: Current Facility-Administered Medications Medication Dose Route Frequency Provider Last Rate Last Admin acetaminophen (Tylenol) tablet 1,000 mg 1,000 mg Oral q8h PRN Steve Lassiter MD 1,000 mg at 01/19/25 1540 ampicillin-sulbactam (Unasyn) 3,000 mg in sodium chloride 0.9 % 100 mL IVPB (Add-[place]) 3,000 mg IntraVENous q12h Steve Lassiter MD [...] Patient Unable To Answer (12/01/2024) Received from [facility] Overall Financial Resource Strain (CARDIA) Difficulty of Paying Living Expenses: Patient unable to answer Food Insecurity: Patient Unable To Answer (12/01/2024) Received from [facility] Hunger Vital Sign Worried About Running Out of Food in the Last Year: Patient unable to answer Ran Out of Food in the Last Year: Patient unable to answer Transportation Needs: No Transportation Needs (01/18/2025) Received from [facility] Transportation Source Has lack of transportation kept you from medical appointments or from getting medications?: No Has lack of transportation kept you from meetings, work, or from getting things needed for daily living?: No Physical Activity: Not on file Stress: No Stress Concern Present (01/18/2025) Received from [facility] of Occupational Health - Occupational Stress Questionnaire Feeling of Stress : Not at all Social Connections: Patient Unable To Answer (12/01/2024) Received from [facility] Social Connection and Isolation Panel [NHANES] Frequency of Communication with Friends and Family: Patient unable to answer Frequency of Social Gatherings with Friends and Family: Patient unable to answer Attends Baptism Services: Patient unable to answer Active Member of Clubs or Organizations: Patient unable to answer Attends Club or Organization Meetings: Patient unable to answer Marital Status: Patient unable to answer Intimate Partner Violence: Patient Unable To Answer (11/28/2024) Received from [facility] Domestic Abuse Assessment Do you [...] Patient Unable To Answer (12/01/2024) Received from [facility] Housing Stability Vital Sign Unable to [...] wound debrided to bone on 01/02 at [facility] (Cx with E faecalis and Clostridium) [...] accounting for open encounter. Mikala MORAN, PAMitzyC [facility] Infectious Disease Cosigned by Gurdeep Cruz MD [...] gastrostomy tube placement, who presented to the [place] emergency room from [facility] on 01/19/2025 where he is admitted for [...] throughout entire last hospitalization. On presentation to [place] 01/19/2025 hemoglobin was 9.1. This morning dropped to 6.6. No transfusion but repeat hemoglobin 3 hours later at 8.2. Currently getting dialysis. Reports he had a BM 5 minutes ago and he does not know what stools have looked like. He denies abdominal pain. No nausea, vomiting. Per patient girlfriend SNF has been flipping [id number] between Coumadin and heparin secondary to patient INR. Assume last dose of Coumadin to be 01/18/2025. History of appendectomy and PEG placement. Allergies: Lisinopril Current Medications: Current Facility-Administered Medications: acetaminophen (Tylenol) tablet 1,000 mg, 1,000 mg, Oral, q8h PRN, Steve Lassiter MD, 1,000 mg at 01/19/25 1540 ampicillin-sulbactam (Unasyn) 3,000 mg in sodium chloride 0.9 % 100 mL IVPB (Add-Hampden Sydney), 3,000 mg, IntraVENous, q12h, Steve Lassiter MD, [...] Diagnosis Date Noted Anemia 12/30/2021 Paroxysmal A-fib ([facility]) ([facility]) 08/18/2023 HTN (hypertension) 12/01/2022 ESRD on hemodialysis ([facility]) ([facility]) 10/26/2019 IgA nephropathy determined by biopsy of kidney 10/26/2019 Diverticulosis 10/08/2023 Nonrheumatic aortic valve stenosis 10/08/2023 Calcification of abdominal aorta ([facility]) 10/08/2023 Missed vaccination due to patient refusal 10/08/2023 Tobacco abuse 10/08/2023 Alcohol use disorder in remission 10/08/2023 Atrial flutter, unspecified type ([facility]) 10/03/2024 RSV (acute bronchiolitis due to respiratory syncytial virus) 10/03/2024 Aortic stenosis 10/03/2024 Upper GI bleed 10/03/2024 S/P AVR 10/03/2024 Acute hypoxic respiratory failure ([facility]) 10/03/2024 Acute encephalopathy 10/03/2024 Pneumoperitoneum 10/03/2024 Gastric ulceration 2024 Severe malnutrition ([facility]) ([facility]) 01/19/2025 Pleural effusion 11/28/2024 Peritonitis due to fungus ([facility]) 11/30/2024 History of abdominal surgery 11/30/2024 Leg DVT (deep venous thromboembolism), acute, left ([facility]) 11/30/2024 Ischemic ulcer of toe of left foot, limited to breakdown of skin ([facility]) 11/30/2024 Tracheostomy dependence ([facility]) 11/30/2024 Leukocytosis 12/30/2024 Decubitus ulcer of sacral region, unstageable ([facility]) 12/30/2024 Pneumonia of both lungs due to methicillin susceptible Staphylococcus aureus (MSSA) ([facility]) 01/01/2025 Sacral osteomyelitis ([facility]) ([facility]) 01/03/2025 Acute respiratory failure with hypoxia ([facility]) [J96.01] 01/08/2025 Tracheostomy care ([facility]) [Z43.0] 01/08/2025 Pulmonary embolism ([facility]) 01/08/2025 alf (current) use of antibiotics 01/12/2025 Resolved Ambulatory Problems Diagnosis Date Noted Acute renal failure (ARF) ([facility]) 10/19/2019 New onset a-fib ([facility]) ([facility]) 08/16/2023 Pulmonary embolism ([facility]) 10/03/2024 Past Medical History: Diagnosis Date Hemodialysis patient ([facility]) ([facility]) Hypertension IgA nephropathy Past Surgical History: [...] Patient Unable To Answer (12/01/2024) Received from [facility] Overall Financial Resource Strain (CARDIA) Difficulty of Paying Living Expenses: Patient unable to answer Food Insecurity: Patient Unable To Answer (12/01/2024) Received from [facility] Hunger Vital Sign Worried About Running Out of Food in the Last Year: Patient unable to answer Ran Out of Food in the Last Year: Patient unable to answer Transportation Needs: No Transportation Needs (01/18/2025) Received from [facility] Transportation Source Has lack of transportation kept you from medical appointments or from getting medications?: No Has lack of transportation kept you from meetings, work, or from getting things needed for daily living?: No Physical Activity: Not on file Stress: No Stress Concern Present (01/18/2025) Received from [facility] of Occupational Health - Occupational Stress Questionnaire Feeling of Stress : Not at all Social Connections: Patient Unable To Answer (12/01/2024) Received from [facility] Social Connection and Isolation Panel [NHANES] Frequency of Communication with Friends and Family: Patient unable to answer Frequency of Social Gatherings with Friends and Family: Patient unable to answer Attends Baptism Services: Patient unable to answer Active Member of Clubs or Organizations: Patient unable to answer Attends Club or Organization Meetings: Patient unable to answer Marital Status: Patient unable to answer Intimate Partner Violence: Patient Unable To Answer (11/28/2024) Received from [facility] Domestic Abuse Assessment Do you feel safe in your relationships at home?: Unable to assess Physical Abuse: Unable to assess [facility] Domestic Abuse - Type of Abuse: Not on file [facility] Domestic Abuse - Time Frame: Not on file [facility] - Signs and Symptoms: Not on file Verbal Abuse: Unable to assess [facility] Domestic Abuse - Reported To: Not on file Housing Stability: Patient Unable To Answer (12/01/2024) Received from [facility] Housing Stability Vital Sign Unable to [...] on 01/20/25 at 7:18 AM. [facility] Nephrology Consult Note Consults HPI The patient is a history of ESRD secondary to IgA nephropathy, currently HD-dependent via a left upper extremity AVF, on a Wednesday//Wednesday ([facility]) dialysis schedule, with the last HD session [...] Date Acute renal failure (ARF) ([facility]) 10/19/2019 Anemia 12/30/2021 Calcification of abdominal aorta ([facility]) 10/08/202309/[address] abd Diverticulosis 10/08/2023 ESRD on hemodialysis ([facility]) ([facility]) 10/26/2019 Hemodialysis patient ([facility]) ([facility]) HTN (hypertension) 12/01/2022 Hypertension IgA nephropathy IgA nephropathy determined by biopsy of kidney 10/26/2019 Missed vaccination due to patient refusal 10/08/2023 Has a number of non-scientific based beliefs which interfere with his understanding and acceptance of the medical benefit of vaccination. Nonrheumatic aortic valve stenosis 10/08/2023 Paroxysmal A-fib ([facility]) ([facility]) 08/18/2023 Tobacco abuse 10/08/2023 Social History [...] Patient Unable To Answer (12/01/2024) Received from [facility] Overall Financial Resource Strain (CARDIA) Difficulty of Paying Living Expenses: Patient unable to answer Food Insecurity: Patient Unable To Answer (12/01/2024) Received from [facility] Hunger Vital Sign Worried About Running Out of Food in the Last Year: Patient unable to answer Ran Out of Food in the Last Year: Patient unable to answer Transportation Needs: No Transportation Needs (01/18/2025) Received from [facility] Transportation Source Has lack of transportation kept you from medical appointments or from getting medications?: No Has lack of transportation kept you from meetings, work, or from getting things needed for daily living?: No Physical Activity: Not on file Stress: No Stress Concern Present (01/18/2025) Received from [facility] of Occupational Health - Occupational Stress Questionnaire Feeling of Stress : Not at all Social Connections: Patient Unable To Answer (12/01/2024) Received from [facility] Social Connection and Isolation Panel [NHANES] Frequency of Communication with Friends and Family: Patient unable to answer Frequency of Social Gatherings with Friends and Family: Patient unable to answer Attends Baptism Services: Patient unable to answer Active Member of Clubs or Organizations: Patient unable to answer Attends Club or Organization Meetings: Patient unable to answer Marital Status: Patient unable to answer Intimate Partner Violence: Patient Unable To Answer (11/28/2024) Received from [facility] Domestic Abuse Assessment Do you [...] Patient Unable To Answer (12/01/2024) Received from [facility] Stability Vital Sign Unable to Pay [...] sodium chloride 0.9 % 100 mL IVPB (Add-H[place] Sydney), 3,000 mg, IntraVENous, Daily, Steve Lassiter MD [...] airway management needs. Maintain NPO status per HEALTH CARE FACILITIES INSPECTOR recommendations until airway stabilization; consider modification of HD orders if NPO persists beyond 24-48 hours impacting volume/nutrition Please message me through EPIC chat with any questions or concerns. Wellington Nicole MD 01/19/2025 4:13 PM [facility] [address] [place] [address], [address] [place] [address] Office: [phone] Associated Order(s): IP CONSULT TO DIETITIAN; IP [...] EN only as sole source of nutrition. HEALTH CARE FACILITIES INSPECTOR was following while pt was at [facility]. HEALTH CARE FACILITIES INSPECTOR consulted inpatient and recommending strict NPO. [...] pt was receiving and tolerating while at [facility]. Will monitor tolerance of nutrition as initiated and increased to goal. Will continue to monitor HEALTH CARE FACILITIES INSPECTOR in the event that oral diet [...] Accumulation: No significant fluid accumulation (per flowsheets) Autocad Strength: Not Performed Nutrition Assessment: pt with [...] Prostat, pt was stabilized and transferred to [facility] for ongoing care, vent liberation and rehab, while at [facility] RD was following and pt was receiving Nepro @ 50mls/hr, pt was discharged from [facility] to SNF on 01/18/25, pt now presented to [facility] ED on 01/19/25 from [facility] due to trach dislodgement, pt stated he [...] management, Nephrology and wound care consults pending, HEALTH CARE FACILITIES INSPECTOR was also consulted and recommending strict NPO. In terms of nutrition pt remains NPO at this time, RD spoke with pt in room, no family/visitors present, pt states that he was only receiving nutrition via PEG BUSINESS UNIT MANAGER, states his goals are to 'eat [...] at [facility] 10/03-11/28/24, discharged to [facility] and recently transferred to [facility] [place] Orientation Level: Oriented to situation, Oriented to [...] bedscale, 10/31: 200#, 11/28: 161#, 01/18: 142#) Universal Body Weight (lbs) (Calculated): 166 lbs Universal Body Weight (Kg) (Calculated): 75 kg % Universal Body Weight (Calculated): 78.2 % BMI (kg/m2) [...] Nutrition Dana El RD Contact: available via Modelinia or *[id number] Associated Order(s): INPATIENT CONSULT TO WOUND CARE PROVIDERS Images from the original note were not included. [facility] Wound Care CONSULT Note Jun [...] diverticulosis, IgA nephropathy, severe that presented to [facility] ED from a facility due to trach dislodgement. Wound Care consulted for Pressure Injury sacrum and Ischemic ulcers to left toes" PAST MEDICAL HISTORY Past Medical History: Diagnosis Date Acute renal failure (ARF) (HCC) 10/19/2019 Anemia 12/30/2021 Calcification of abdominal aorta ([facility]) 10/08/202309/[address] abd Diverticulosis 10/08/2023 ESRD on hemodialysis ([facility]) ([facility]) 10/26/2019 Hemodialysis patient ([facility]) ([facility]) HTN (hypertension) 12/01/2022 Hypertension IgA nephropathy IgA nephropathy determined by biopsy of kidney 10/26/2019 Missed vaccination due to patient refusal 10/08/2023 Has a number of non-scientific based beliefs which interfere with his understanding and acceptance of the medical benefit of vaccination. Nonrheumatic aortic valve stenosis 10/08/2023 Paroxysmal A-fib ([facility]) ([facility]) 08/18/2023 Tobacco abuse 10/08/2023 PAST SURGICAL [...] PROCEDURES IR FISTULAGRAM 08/07/2022 IR FISTULAGRAM 08/07/2022 [facility] IR IMAGING TONSILLECTOMY (HISTORICAL) FAMILY [...] Medication Sig Dispense Refill epoetin rowan-epbx (Retacrit) 44863 UNIT/ML injection Inject 0.79 mL (7,900 Units) [...] to follow Recommend to follow up at [facility] Outpatient wound care center after [...] 4:05 PM EDT documented in this encounter [facility] 01-19-2025 History and physical note Images [...] diverticulosis, IgA nephropathy, severe that presented to [facility] ED from a facility due [...] Date Acute renal failure (ARF) ([facility]) 10/19/2019 Anemia 12/30/2021 Calcification of abdominal aorta ([facility]) 10/08/202309/[address] abd Diverticulosis 10/08/2023 ESRD on hemodialysis ([facility]) ([facility]) 10/26/2019 Hemodialysis patient ([facility]) ([facility]) HTN (hypertension) 12/01/2022 Hypertension IgA nephropathy IgA nephropathy determined by biopsy of kidney 10/26/2019 Missed vaccination due to patient refusal 10/08/2023 Has a number of non-scientific based beliefs which interfere with his understanding and acceptance of the medical benefit of vaccination. Nonrheumatic aortic valve stenosis 10/08/2023 Paroxysmal A-fib ([facility]) ([facility]) 08/18/2023 Tobacco abuse 10/08/2023 Past Surgical [...] Patient Unable To Answer (12/01/2024) Received from [facility] Overall Financial Resource Strain (CARDIA) Difficulty of Paying Living Expenses: Patient unable to answer Food Insecurity: Patient Unable To Answer (12/01/2024) Received from [facility] Hunger Vital Sign Worried About Running Out of Food in the Last Year: Patient unable to answer Ran Out of Food in the Last Year: Patient unable to answer Transportation Needs: No Transportation Needs (01/18/2025) Received from [facility] Transportation Source Has lack of transportation kept you from medical appointments or from getting medications?: No Has lack of transportation kept you from meetings, work, or from getting things needed for daily living?: No Physical Activity: Not on file Stress: No Stress Concern Present (01/18/2025) Received from [facility] of Occupational Health - Occupational Stress Questionnaire Feeling of Stress : Not at all Social Connections: Patient Unable To Answer (12/01/2024) Received from [facility] Social Connection and Isolation Panel [NHANES] Frequency of Communication with Friends and Family: Patient unable to answer Frequency of Social Gatherings with Friends and Family: Patient unable to answer Attends Baptism Services: Patient unable to answer Active Member of Clubs or Organizations: Patient unable to answer Attends Club or Organization Meetings: Patient unable to answer Marital Status: Patient unable to answer Intimate Partner Violence: Patient Unable To Answer (11/28/2024) Received from [facility] Domestic Abuse Assessment Do you [...] Patient Unable To Answer (12/01/2024) Received from [facility] Housing Stability Vital Sign Unable to Pay for Housing in the Last Year: Patient unable to answer Number of Times Moved in the Last Year: 0 Homeless in the Last Year: Patient unable to answer Allergies Allergen Reactions Lisinopril Swelling and Angioedema Prior to Admission medications Medication Sig Start Date End Date Taking? Authorizing Provider epoetin rowan-epbx (Retacrit) 55801 UNIT/ML injection Inject 0.79 mL (7,900 Units) [...] Normal [] Scar/Lesion/Mass Inspection of teeth/lips/gums Dentition: []Resighini Teeth []Dentures Lips/Gums: []Intact []Lesion Present Mucosa: []Harold []Moist []Dry Neck: External Appearance Tracheostomy hole [...] last 24 hours- BMP: Recent Labs 01/19/25 034 NA 135* K 4.4 CL 95* CO2 25 BUN 80* CREATININE 3.50* CALCIUM 10.6* LFTs: No results for input(s): "AST", "ALT", "PROT", "ALBUMIN", "BILITOT", "BILIRUBINU", "ALKPHOS", "LIPASE" in the last 72 hours. Glucose: Recent Labs 01/19/25 034 GLUCOSE 85 Procal: No results for input(s): "PROCAL" in the last 72 hours. CBC: Recent Labs 01/19/25 034 WBC 11.6* HGB 9.1* HCT 29.1* PLT 404 MCV 87.4 RDW 18.5* ABGs: No results for input(s): "PHART", "JBT8KYX", "PO2ART", "SON1MLN", "SO2ART", "K1WTHJEQ" in the last 72 hours. Lactic Acid: [...] Remain in ICU Status Cosigned by Bruce gNuyen MD at 01/19/2025 5:23 PM EDT Associated attestation - Bruce Nguyen MD - 01/19/2025 5:23 PM EDT I have personally performed a ikbt-by-hqwu diagnostic evaluation on this patient on date [...] to have bile peritonitis 11/28/24: transferred to [facility]. He continued on HD at [facility]. Reportedly had ongoing issues with delirium according to his partner, Toma who was at bedside and provided history. Developed severe sacral ulcer and sacral ostomyelitis at [facility]. He was progressing with HEALTH CARE FACILITIES INSPECTOR and using a PMV. Has not done any capping trials. Was transferred to a facility in [place]; there he inadvertently dislodged his tracheostomy. He initially presented to the [facility] emergency dept. He was transferred to [facility] in case of emergetn airway compromise. Assessment: Trach dislodgement, high risk of respiratory failure Chronic respiratory failure due to failure of airway protection ESRD Sacral osteomyelitis s/p AVR Full Code Plan: Admit to MICU Close monitorign for airway compromise Restart abx for osteomyelitis HEALTH CARE FACILITIES INSPECTOR eval; [facility] Critical Care Time: 33 minutes Total critical care time caring for this patient with life threatening, unstable organ failure, including direct patient contact, management of life support systems, review of data including imaging and labs, discussions with other team members and physicians, excluding procedures. Electronically signed by Bruce Nguyen MD documented in this encounter [facility] 01-19-2025 Emergency department Note EMERGENCY DEPARTMENT [...] who [facility]gment of his tracheostomy [...] nephropathy, hypertension, and currently being [facility] with IV antibiotics for multiple infected [...] Date Acute renal failure (ARF) ([facility]) 10/19/2019 Anemia 12/30/2021 Calcification of abdominal aorta ([facility]) 10/08/202309/[address] abd Diverticulosis 10/08/2023 ESRD on hemodialysis ([facility]) ([facility]) 10/26/2019 Hemodialysis patient ([facility]) ([facility]) HTN (hypertension) 12/01/2022 Hypertension IgA nephropathy IgA nephropathy determined by biopsy of kidney 10/26/2019 Missed vaccination due to patient refusal 10/08/2023 Has a number of non-scientific based beliefs which interfere with his understanding and acceptance of the medical benefit of vaccination. Nonrheumatic aortic valve stenosis 10/08/2023 Paroxysmal A-fib ([facility]) ([facility]) 08/18/2023 Tobacco abuse 10/08/2023 SURGICAL HISTORY [...] CURRENT MEDICATIONS Previous Medications EPOETIN ROWAN-EPBX (RETACRIT) 94514 UNIT/ML INJECTION Inject 0.79 mL (7,900 Units) [...] Patient Unable To Answer (12/01/2024) Received from [facility] Hunger Vital Sign Worried About Running Out of Food in the Last Year: Patient unable to answer Ran Out of Food in the Last Year: Patient unable to answer Transportation Needs: No Transportation Needs (01/18/2025) Received from [facility] Transportation Source Has lack of transportation kept you from medical appointments or from getting medications?: No Has lack of transportation kept you from meetings, work, or from getting things needed for daily living?: No Stress: No Stress Concern Present (01/18/2025) Received from [facility] of Occupational Health - Occupational Stress Questionnaire Feeling of Stress : Not at all Social Connections: Patient Unable To Answer (12/01/2024) Received from [facility] Social Connection and Isolation Panel [NHANES] Frequency of Communication with Friends and Family: Patient unable to answer Frequency of Social Gatherings with Friends and Family: Patient unable to answer Attends Baptism Services: Patient unable to answer Active Member of Clubs or Organizations: Patient unable to answer Attends Club or Organization Meetings: Patient unable to answer Marital Status: Patient unable to answer Intimate Partner Violence: Patient Unable To Answer (11/28/2024) Received from [facility] Medical Domestic Abuse Assessment Do you feel safe in your relationships at home?: Unable to assess Physical Abuse: Unable to assess Verbal Abuse: Unable to assess Housing Stability: Patient Unable To Answer (12/01/2024) Received from [facility] Medical Housing Stability Vital Sign Unable [...] nursing note reviewed. Exam conducted with a crop farmers present. Constitutional: General: He is not in [...] [facility] as described in the HPI. Reportedly [...] No FINAL IMPRESSION 1. Complication of tracheostomy ([facility]) ([facility]) DISPOSITION Admit 01/19/2025 03:00:18 AM PATIENT [...] 01/19/25 0301 Pt arrived Via EMS from [facility]. Pt removed his trach which he is typically on 5L. 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 He is NPO and receiving IV antibiotics for the results of his blood cultures. Pt was recently transferred to [place] from [facility]. Pt arrived with a pressure of 88/52 and 96% on room air. RT and MD at bedside upon arrival. documented in this encounter [facility] 01-18-2025 History of Presen t illness Narrative [facility] billing documented in this encounter [facility] 01-17-2025 History of Presen t illness Narrative Seen at [facility] documented in this encounter [facility] 01-17-2025 History of Presen t illness Narrative [facility] documented in this encounter [facility] 01-16-2025 History of Presen t illness Narrative [facility] documented in this encounter [facility] 01-15-2025 History of Presen t illness Narrative [facility]en at [facility] documented in this encounter [facility] 01-15-2025 History of Presen t illness Narrative [facility] documented in this encounter [facility] 01-14-2025 History of Presen t illness Narrative [facility] documented in this encounter [facility] 01-12-2025 History of Presen t illness Narrative [facility] documented in this encounter [facility] 01-12-2025 History of Presen t illness Narrative Seen at [facility] documented in this encounter [facility] 01-11-2025 History of Presen t illness Narrative [facility] documented in this encounter [facility] 01-11-2025 History of Presen t illness Narrative Seen at [facility] documented in this encounter [facility] 01-10-2025 History of Presen t illness Narrative [facility] documented in this encounter [facility] 01-09-2025 History of Presen t illness Narrative [facility] documented in this encounter [facility] 01-09-2025 History of Presen t illness Narrative Seen at [facility] documented in this encounter [facility] 01-08-2025 History of Presen t illness Narrative [facility] documented in this encounter [facility] 01-08-2025 History of Presen t illness Narrative Seen at [facility] documented in this encounter [facility] 01-05-2025 History of Presen t illness Narrative Patient seen by me at [facility]. Documentation including history, exam and plan documented in [facility] EMR. This encounter is for billing only. documented in this encounter [facility] 01-05-2025 History of Presen t illness Narrative [facility] 01/05 documented in this encounter [facility] 01-04-2025 History of Presen t illness Narrative Patient seen by me at [facility]. Documentation including history, exam and plan documented in [facility] EMR. This encounter is for billing only. documented in this encounter [facility] 01-04-2025 History of Presen t illness Narrative [facility] 01/04 documented in this encounter [facility] 01-03-2025 History of Presen t illness Narrative Patient seen by me at [facility]. Documentation including history, exam and plan documented in [facility] EMR. This encounter is for billing only. documented in this encounter [facility] 01-03-2025 History of Presen t illness Narrative Pt seen at [facility]. Complete documentation under [facility]'s EMR. documented in this encounter [facility] 01-02-2025 History of Presen t illness Narrative Pt seen at [facility]. Complete documentation under [facility]'s EMR. documented in this encounter [facility] 01-02-2025 History of Presen t illness Narrative Patient seen by me at [facility]. Documentation including history, exam and plan documented in [facility] EMR. This encounter is for billing only. documented in this encounter [facility] 01-01-2025 History of Presen t illness Narrative Pt seen at [facility]. Complete documentation under [facility]'s EMR. documented in this encounter [facility] 01-01-2025 History of Presen t illness Narrative Patient seen by me at [facility]. Documentation including history, exam and plan documented in [facility] EMR. This encounter is for billing only. documented in this encounter [facility] 01-01-2025 History of Presen t illness Narrative Subsequent visit today at [facility] documented in this encounter [facility] 12-30-2024 History of Presen t illness Narrative Pt seen at [facility]. Complete documentation under [facility]'s EMR. documented in this encounter [facility] 12-28-2024 History of Presen t illness Narrative Patient seen by me at [facility]. Complete documentation including history with assessment and plan were documented in [facility] EMR. This encounter is for billing only. documented in this encounter [facility] 12-27-2024 History of Presen t illness Narrative Patient seen by me at [facility]. Complete documentation including history with assessment and plan were documented in [facility] EMR. This encounter is for billing only. documented in this encounter [facility] 12-26-2024 History of Presen t illness Narrative Patient seen by me at [facility]. Complete documentation including history with assessment and plan were documented in [facility] EMR. This encounter is for billing only. documented in this encounter [facility] 12-22-2024 History of Presen t illness Narrative Patient seen by me at [facility] in [place]. Complete documentation including history with assessment and plan were documented in [facility] EMR. This encounter is for billing only. documented in this encounter [facility] 12-21-2024 History of Presen t illness Narrative Patient seen by me at [facility] in [place]. Complete documentation including history with assessment and plan were documented in [facility] EMR. This encounter is for billing only. documented in this encounter [facility] 12-20-2024 History of Presen t illness Narrative Patient seen by me at [facility] in [place]. Complete documentation including history with assessment and plan were documented in [facility] EMR. This encounter is for billing only. documented in this encounter [facility] 12-19-2024 History of Presen t illness Narrative Patient seen by me at [facility] in [place]. Complete documentation including history with assessment and plan were documented in [facility] EMR. This encounter is for billing only. documented in this encounter [facility] 12-18-2024 History of Presen t illness Narrative Patient seen by me at [facility] in [place]. Complete documentation including history with assessment and plan were documented in [facility] EMR. This encounter is for billing only. documented in this encounter [facility] 12-15-2024 History of Presen t illness Narrative [facility] documented in this encounter [facility] 12-14-2024 History of Presen t illness Narrative [facility] documented in this encounter [facility] 12-14-2024 Telephone encount er Note Patient is still at [facility]. I spoke to Karla, cyanide case hardener, and she stated that patient has a tentative discharge date on 12/25. He will be going to a facility after that. Karla is not sure which one. I will check back with her closer to that date. [facility] 12-14-2024 Miscellaneous Notes Formattin g of this note might be different from the original. Patient is still at [facility]. I spoke to Karla, cyanide case hardener, and she stated that patient has a tentative discharge date on 12/25. He will be going to a facility after that. Karla is not sure which one. I will check back with her closer to that date. Called and spoke with patients son to discuss scheduling hospital follow up appointment. Omar advised me that the patient will be in the hospital residential as a lot happened while he was hospitalized. Patient does not wish to schedule at this time. Thanks Attempted to call patient to schedule hospital follow up. Patients phone is restricted. Unable to lvm. Sent Quosis message. Thanks Will hold to contact patient s/p discharge. Thanks Pt remains admitted at this time. GI staff to contact pt for scheduling OV s/p discharge. Patient needs close follow up for repeat EGD for duodenal ulcer, had IR embolization of GDA. Currently in ICU. Thanks. documented in this encounter [facility] 12-13-2024 History of Presen t illness Narrative [facility] documented in this encounter [facility] 12-13-2024 Telephone encount er Note Called and spoke with patients son to discuss scheduling hospital follow up appointment. Omar advised me that the patient will be in the hospital residential as a lot happened while he was hospitalized. Patient does not wish to schedule at this time. Thanks [facility] 12-13-2024 Miscellaneous Notes Formattin g of this note might be different from the original. Called and spoke with patients son to discuss scheduling hospital follow up appointment. Omar advised me that the patient will be in the hospital residential as a lot happened while he was hospitalized. Patient does not wish to schedule at this time. Thanks Attempted to call patient to schedule hospital follow up. Patients phone is restricted. Unable to lvm. Sent Quosis message. Thanks Will hold to contact patient s/p discharge. Thanks Pt remains admitted at this time. GI staff to contact pt for scheduling OV s/p discharge. Patient needs close follow up for repeat EGD for duodenal ulcer, had IR embolization of GDA. Currently in ICU. Thanks. documented in this encounter [facility] 12-12-2024 History of Presen t illness Narrative [facility] documented in this encounter [facility] 12-11-2024 History of Presen t illness Narrative Seen at [facility] 12/11/24 documented in this encounter [facility] 12-11-2024 History of Presen t illness Narrative [facility] documented in this encounter [facility] 12-11-2024 Telephone encount er Note Attempted to call patient to schedule hospital follow up. Patients phone is restricted. Unable to lvm. Sent MyChart message. Thanks [facility] 12-11-2024 Miscellaneous Notes Formattin g of [...] in ICU. Thanks. documented in this encounter [facility] 12-07-2024 History of Presen t illness Narrative [facility] documented in this encounter [facility] 12-07-2024 History of Presen t illness Narrative [facility] 12/07/24 documented in this encounter [facility] 12-06-2024 History of Presen t illness Narrative [facility] documented in this encounter [facility] 12-06-2024 History of Presen t illness Narrative [facility] 12/06/24 documented in this encounter [facility] 12-05-2024 History of Presen t illness Narrative [facility] documented in this encounter [facility] 12-04-2024 History of Presen t illness Narrative Follow-up visit today at [facility] documented in this encounter [facility] 12-04-2024 History of Presen t illness Narrative [facility] 12/04/24 documented in this encounter [facility] 12-01-2024 History of Presen t illness Narrative [facility] 12/01/24 documented in this encounter [facility] 12-01-2024 History of Presen t illness Narrative I did a level 4 consult on this [facility]. In reviewing Dr. Garcia's note she noted acute systolic right heart failure related to and accompanied by pulmonary hypertension. She noted the need for midodrine. Dr. Chow waited on atrial flutter and atrial tachycardia. He was put on amiodarone and attempt was YG cardioversion, unsuccessful. The last electrocardiogram done at the [facility] showed atrial flutter. documented in this encounter [facility] 12-01-2024 History of Presen t illness Narrative [facility] documented in this encounter [facility] 11-30-2024 History of Presen t illness Narrative [facility] documented in this encounter [facility] 11-30-2024 History of Presen t illness Narrative [facility] 11/30/24 documented in this encounter [facility] 11-29-2024 History of Presen t illness Narrative [facility] 3/5/25 documented in this encounter [facility] 11-29-2024 History of Presen t illness Narrative [facility] documented in this encounter [facility] 11-28-2024 Telephone encount er Note Name of Caller: Herminia Contact Physician requesting Consult: Michelle Caruso APRN Patient Location (facility name, room, bed number): [facility] specialty [facility], 116 Patient Diagnosis/Reason for Consult:SOB Provider being paged: Dr Nathan Time page was sent: [phone] Department of provider being paged: [facility] Page Content: routine consult requested. Message sent via Secure Chat [facility] 11-28-2024 Miscellaneous Notes Formattin g of this note might be different from the original. Name of Caller: Herminia Contact Physician requesting Consult: Michelle Caruso APRN Patient Location (facility name, room, bed number): [facility], 116 Patient Diagnosis/Reason for Consult:SOB Provider being paged: Dr Nathan Time page was sent: [phone] Department of provider being paged: [facility] Page Content: routine consult requested. Message sent via Secure Chat documented in this encounter [facility] 10-17-2024 Telephone encount er Note Will hold to contact patient s/p discharge. Thanks [facility] 10-17-2024 Miscellaneous Notes Formattin g of this note might be different from the original. Will hold to contact patient s/p discharge. Thanks Pt remains admitted at this time. GI staff to contact pt for scheduling OV s/p discharge. Patient needs close follow up for repeat EGD for duodenal ulcer, had IR embolization of GDA. Currently in ICU. Thanks. documented in this encounter [facility] 10-17-2024 Miscellaneous Notes Formattin g of this note might be different from the original. Will hold to contact patient s/p discharge. Thanks Pt remains admitted at this time. GI staff to contact pt for scheduling OV s/p discharge. Patient needs close follow up for repeat EGD for duodenal ulcer, had IR embolization of GDA. Currently in ICU. Thanks. documented in this encounter [facility] 10-17-2024 Telephone encount er Note Pt remains admitted at this time. GI staff to contact pt for scheduling OV s/p discharge. [employer] 10-16-2024 Telephone encount er Note Patient needs close follow up for repeat EGD for duodenal ulcer, had IR embolization of GDA. Currently in ICU. Thanks. [employer] Work Phone: 10-16-2024 Miscellaneous Notes Formattin g of this note might be different from the original. Patient needs close follow up for repeat EGD for duodenal ulcer, had IR embolization of GDA. Currently in ICU. Thanks. documented in this encounter [facility] 10-12-2024 Note Formatting of this n ote is different from the original. Patient: Jair Snyder Procedure Summary Date: 10/12/24 Room / Location: [address] Operating Room Anesthesia Start: 725 Anesthesia [...] once all PACU criteria has been met. [facility] 10-12-2024 Miscellaneous Notes Formattin g of this note is different from the original. Patient: Jair Snyder Procedure Summary Date: 10/12/24 Room / Location: [address] Operating Room Anesthesia Start: 725 Anesthesia [...] has been met. documented in this encounter [facility] 10-12-2024 Anesthesiology Postoperative evaluation and management note Patient: Jair Snyder Procedure Summary Date: 10/12/24 Room / Location: [facility] Operating Room Anesthesia Start: 725 Anesthesia [...] opportunity for questions and acknowledgement of understanding. [employer] Phone: 10-12-2024 Surgical operatio n note Patient: Jair Snyder Procedure Summary Date: 10/12/24 Room / Location: [address] Operating Room Anesthesia Start: 725 Anesthesia [...] during the procedure: no complications. Staffing Performed: RIVET BUCKER Resident/RIVET BUCKER: Rudolph German CRNA Associated Order(s): Airway Airway Date/Time: 10/12/2024 7:38 AM Urgency: scheduled Airway not difficult General Information and Staff Patient location during procedure: Procedural Anesthesiologist: Vincent Wilson MD Resident/RIVET BUCKER: Rudolph German CRNA Performed: anesthesiologist Indications and [...] well with no complications. Staffing Performed: DECLAN Resident/RIVET BUCKER: Rudolph German CRNA Patient: Jair Snyder Procedure Information Date/Time: 10/12/24 0730 Procedures: AORTIC VALVE REPAIR, POSSIBLE REPLACEMENT (Chest) - 7:30 am, 5 hours TRICUSPID REPLACEMENT WITH RING (Chest) TRANSESOPHAGEAL ECHOCARDIOGRAM Location: [facility] OR [address] [place] [address] Operating Room Surgeons: Luciano Montemayor MD Relevant Problems Cardio (+) Aortic stenosis (+) Atrial flutter, unspecified type ([facility]) (+) Calcification of abdominal aorta (HCC) (+) HTN (hypertension) (+) Nonrheumatic aortic valve stenosis (+) Paroxysmal A-fib (CMS/HCC) ([facility]) GI (+) Diverticulosis /Renal (+) ESRD on hemodialysis (CMS/HCC) ([facility]) (+) IgA nephropathy determined by biopsy of kidney Past Medical History: Past Medical History: 10/19/2019: Acute renal failure (ARF) ([facility]) 12/30/2021: Anemia 10/08/2023: Calcification of abdominal aorta ([facility]) Comment: 09/[address] abd 10/08/2023: Diverticulosis 10/26/2019: ESRD on hemodialysis ([facility]) ([facility]) No date: Hemodialysis patient (CMS/HCC) ([facility]) 12/01/2022: HTN (hypertension) No date: Hypertension No date: IgA nephropathy 10/26/2019: IgA nephropathy determined by biopsy of kidney 10/08/2023: Missed vaccination due to patient refusal Comment: Has a number of non-scientific based beliefs which interfere with his understanding and acceptance of the medical benefit of vaccination. 10/08/2023: Nonrheumatic aortic valve stenosis 08/18/2023: Paroxysmal A-fib (CMS/HCC) ([facility]) 10/08/2023: Tobacco abuse Past Surgical History: Past Surgical History: No date: APPENDECTOMY 10/09/2024: CARDIAC CATHETERIZATION; N/A Comment: Performed by Bob Watson MD at [facility] Cardiac Cath/EP Lab 09/15/2021: FISTULAGRAM (HISTORICAL); Left Comment: LEFT UPPER ARM No date: HX AV FISTULA CREATION 08/07/2022: IR FISTULAGRAM Comment: IR FISTULAGRAM 08/07/2022 [facility] IR IMAGING No date: TONSILLECTOMY [...] Additional Equipment Requests documented in this encounter [facility] 10-12-2024 Procedure anesthe jaki Narrative Procedure [...] Urethral Catheter Placement Date: 10/12/24; Placement Time: 752; Inserted by: FA; Type: Temperature probe; Balloon Size: 10 mL; Urine Returned: Yes; Removal Date: 10/14/24; Removal Time: 1047; Removal Reason: Per order 10/12/24 0753 by Tracie Pacheco RN 10/14/24 1048 by Hunter Dove RN [id number] Anesthesiology procedure note* Anesthesia Procedure Notes - [...] during the procedure: no complications. Staffing Performed: RIVET BUCKER Resident/RIVET BUCKER: Rudolph Germna CRNA [facility]01-16-2025 Anesthesiology procedure note* Anesthesia Procedure Notes - Rudolph German CRNA - 10/12/2024 7:49 AM ESTAssociated Order(s): Airway Airway Date/Time: 10/12/2024 7:38 AM Urgency: scheduled Airway not difficult General Information and Staff Patient location during procedure: Procedural Anesthesiologist: Vincent Wilson MD Resident/RIVET BUCKER: Rudolph German CRNA Performed: anesthesiologist Indications and [...] 21 Number of attempts at approach: [address]16-2025 Anesthesiology procedure note* Anesthesia Procedure Notes [...] procedure well with no complications. Staffing Performed: RIVET BUCKER Resident/RIVET BUCKER: Rudolph German CRNA [place] [id number] Anesthesiology Preoperative evaluation and management note* Anesthesia Preprocedure Evaluation - Vincent Wilson MD - 10/12/2024 6:56 AM EST Patient: Jair Snyder Procedure Information Date/Time: 10/12/24 0730 Procedures: AORTIC VALVE REPAIR, POSSIBLE REPLACEMENT (Chest) - 7:30 am, 5 hours TRICUSPID REPLACEMENT WITH RING (Chest) TRANSESOPHAGEAL ECHOCARDIOGRAM Location: [facility] OR [address] [place] [address] Operating Room Surgeons: Luciano Montemayor MD Relevant Problems Cardio (+) Aortic stenosis (+) Atrial flutter, unspecified type (HCC) (+) Calcification of abdominal aorta (HCC) (+) HTN (hypertension) (+) Nonrheumatic aortic valve stenosis (+) Paroxysmal A-fib (CMS/HCC) ([facility]) GI (+) Diverticulosis /Renal (+) ESRD on hemodialysis (CMS/HCC) ([facility]) (+) IgA nephropathy determined by biopsy of kidney Past Medical History: Past Medical History: 10/19/2019: Acute renal failure (ARF) ([facility]) 12/30/2021: Anemia 10/08/2023: Calcification of abdominal aorta ([facility]) Comment: 09/[address] abd 10/08/2023: Diverticulosis 10/26/2019: ESRD on hemodialysis (CMS/HCC) ([facility]) No date: Hemodialysis patient (CMS/HCC) ([facility]) 12/01/2022: HTN (hypertension) No date: Hypertension No date: IgA nephropathy 10/26/2019: IgA nephropathy determined by biopsy of kidney 10/08/2023: Missed vaccination due to patient refusal Comment: Has a number of non-scientific based beliefs which interfere with his understanding and acceptance of the medical benefit of vaccination. 10/08/2023: Nonrheumatic aortic valve stenosis 08/18/2023: Paroxysmal A-fib (CMS/HCC) ([facility]) 10/08/2023: Tobacco abuse Past Surgical History: Past Surgical History: No date: APPENDECTOMY 10/09/2024: CARDIAC CATHETERIZATION; N/A Comment: Performed by Bob Watson MD at [facility] Cardiac Cath/EP Lab 09/15/2021: FISTULAGRAM (HISTORICAL); Left Comment: LEFT UPPER ARM No date: HX AV FISTULA CREATION 08/07/2022: IR FISTULAGRAM Comment: IR FISTULAGRAM 08/07/2022 [facility] IR IMAGING No date: TONSILLECTOMY [...] 10:45 AM Equipment Requests: Additional Equipment Requests [facility] HospitalUyosro80-04-1162 History of Present illness Narrative* Jr Shah MD - 08/28/2024 3:15 PM EST Images from the original note were not included. [facility] CARDIOLOGY - [address] [place] [id number] Dept: [phone] Dept Visit type: Established : 1965 Reason [...] months (around 02/26/2025) for [facility] f/u in [place]. Subjective Afib after admission 07/2023. ESRD on [...] On theother hand, a mechanical valve with residential OAC carries its own risks with a [...] none/quit. Pt would like to f/u in [place]. Was concerned about location and level of [...] Date Acute renal failure (ARF) ([facility]) 10/19/2019 Anemia 12/30/2021 Calcification of abdominal aorta ([facility]) 10/08/202309/[address] abd Diverticulosis 10/08/2023 ESRD on hemodialysis ([facility]) ([facility]) 10/26/2019 Hemodialysis patient ([facility]) ([facility]) HTN (hypertension) 12/01/2022 Hypertension IgA nephropathy IgA nephropathy determined by biopsy of kidney 10/26/2019 Missed vaccination due to patient refusal 10/08/2023 Has a number of non-scientific based beliefs which interfere with his understanding and acceptance of the medical benefit of vaccination. Nonrheumatic aortic valve stenosis 10/08/2023 Paroxysmal A-fib ([facility]/HCC) (HCC) 08/18/2023 Tobacco abuse 10/08/2023 Social History [...] medical care for thiscondition(s). documented in this [facility]12-02-2024 Evaluation + Plan note* Assessment & Plan Note - Jr Shah MD - 08/28/2024 1:07 PM EST Associated Problem(s): Alcohol use disorder in remission Says he is a "functioning alcoholic". Stopping drinking in 2019. -Recommend stay quit due to addiction and risk of bleeding. [facility] HospitalUirlip25-01-0837 Evaluation + Plan note* Assessment & Plan Note - Jr Shah MD - 08/28/2024 1:07 PM ESTAssociated Problem(s): Tobacco abuse 1 ppd. Recommend complete cessation. -Recommend CT lung cancer screening. [facility] HospitalGatzda83-71-3381 Miscellaneous Notes* Assessment & Plan Note - [...] ablation, watchman device, etc. documented in this [facility]12-02-2024 Evaluation + Plan note* Assessment [...] which will need to be carefully considered. [facility] HospitalBikzts14-96-4182 Evaluation + Plan note* Assessment & Plan [...] see EP, discuss ablation, watchman device, etc. [facility] HospitalUqepad23-76-5727 History of Present illness Narrative* Alan Barroso RN - 05/10/2024 2:38 PM EDT Dialysis center status inquiry form received from [facility]. Form completed and faxed back to ELIA Marin at [phone]. Patient was called 04/12/2024 but voicemail was full, letter was sent to please call the office at [phone] to complete intake. Referral was closed. Please have patient call the office to complete intake. JHONY Meier RN May 10, 2024 2:41 PM [facility] Telephone encounter Note * Telephone Encounter - Lanie Luis - 04/12/2024 11:49 AM EDT I called patient to start the kidney referral intake process. Voicemail is full, sent a letter out. Lanie [facility]07-17-2024 Miscellaneous Notes* Telephone Encounter - Toby Lanie - 04/12/2024 11:49 AM EDT I called patient to start the kidney referral intake process. Voicemail is full, sent a letter out. Lanie documented in this [facility]05-20-2024 Telephone encounter Note * Telephone Encounter - Tracie Chin RN - 02/14/2024 10:23 AM EDT Called LM with pt with central scheduling number. Advised to call to schedule echo. [facility] HospitalLglpmw75-47-9699 Miscellaneous Notes* Telephone Encounter - Tracie Chin RN - 02/14/2024 10:23 AM EDT Called LM with pt with central scheduling number. Advised to call to schedule echo. * Telephone Encounter - Dorcas Pabon - 02/12/2024 10:28 AM EDT Unable to contact patient - called and lvm and sent mychart message for echo Deferred documented in this encounterSUpper Valley Medical CenterZurory31-71-1001 Telephone encounter Note* Telephone Encounter - Dorcas Pabon - 02/12/2024 10:28 AM EDT Unable to contact patient - called and lvm and sent mychart message for echo Deferred [facility] HospitalYsmyho26-26-6710 Miscellaneous Notes* Telephone Encounter - Dorcas Pabon - 02/12/2024 10:28 AM EDT Unable to contact patient - called and lvm and sent mychart message for echo Deferred documented in this [facility]05-18-2024 Telephone encounter Note* Telephone Encounter - Dorcas Pabon - 02/12/2024 10:23 AM EDT Unable to contact patient to schedule CT lung screening - called and sent mychart message Deferred [facility] HospitalZxtnea21-66-7851 Miscellaneous Notes* Telephone Encounter - Dorcas Pabon - 02/12/2024 10:23 AM EDT Unable to contact patient to schedule CT lung screening - called and sent mychart message Deferred documented in this encounterSUpper Valley Medical CenterAqwrrr61-81-6852 Evaluation + Plan note* Assessment & Plan Note - DENIA Dumont CNP - 11/12/2023 4:50 PM EST Associated Problem(s): Tobacco abuse 1 ppd. Recommend complete cessation. Consider CT lung cancer screening. [facility] HospitalEqlsle11-13-3029 Miscellaneous Notes* Assessment & Plan Note - [...] than just dialysis days. documented in this [facility]02-16-2024 Evaluation + Plan note* Assessment & Plan Note - DENIA Dumont CNP - 11/12/2023 4:48 PM EST Associated Problem(s): Calcification of abdominal aorta (HCC) Sep 2023, by chart review this is the only ASCVD finding. Utility of lipid- lowering agent controversial in ESRD and does not appear to be improved with moderate intensity statins. -expectant mgt [facility] HospitalOltxug00-62-1345 Evaluation + Plan note* Assessment & Plan Note - DENIA Dumont CNP - 11/12/2023 4:48 PM ESTAssociated Problem(s): HTN (hypertension) Goal BP < 130/80 mmHg. BP today in office borderline. -continues on toprol XL -mgt per PCP and renal [place] [id number] Evaluation + Plan note* Assessment & Plan [...] cardiac intervention that he is open to. [facility] HospitalJwjiux55-04-9065 Evaluation + Plan note* Assessment & Plan [...] dose overall, rather than just dialysis days. [facility] HospitalWwsaqx48-96-6563 History of Present illness Narrative* DENIA Dumont CNP - 11/12/2023 1:30 PM EST Images from the original note were not included. [facility] [address] [place] [address] [address] [facility] [address] Dept: [phone] Dept Loc: [phone] Visit type: Established : 1965 Reason for [...] he is open to. 2. Paroxysmal A-fib ([facility]) ([facility]) Assessment & Plan: Paroxysmal. Refer to [...] lung cancer screening. 6. 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 Today: He [...] Date Acute renal failure (ARF) ([facility]) 10/19/2019 Anemia 12/30/2021 Calcification of abdominal aorta ([facility]) 10/08/202309/[address] abd Diverticulosis 10/08/2023 ESRD on hemodialysis ([facility]) ([facility]) 10/26/2019 Hemodialysis patient ([facility]) ([facility]) HTN (hypertension) 12/01/2022 Hypertension IgA nephropathy IgA nephropathy determined by biopsy of kidney 10/26/2019 Missed vaccination due to patient refusal 10/08/2023 Has a number of non-scientific based beliefs which interfere with his understanding and acceptance of the medical benefit of vaccination. Nonrheumatic aortic valve stenosis 10/08/2023 Paroxysmal A-fib ([facility]) ([facility]) 08/18/2023 Tobacco abuse 10/08/2023 Social History [...] PM DENIA Dumont CNP documented in this encounterSUpper Valley Medical CenterCjhoag59-91-6890 Telephone encounter Note* Telephone Encounter - Sydni Rodrigues - 11/01/2023 9:41 AM EST Called pt lmom for a return call to set up appt [facility] HospitalWxfstl49-19-8957 Miscellaneous Notes* Telephone Encounter - Sydni Rodrigues [...] 10/14/2023 7:58 AM EST Preferred contact number: [phone] Reason for Visit: Jun called in to cancel his appt this morning. He woke up and is very sick. Please contact him to reschedule. Urgency of Appointment: office visit documented in this [facility]01-22-2024 Telephone encounter Note* Telephone Encounter - Sydni Rodrigues - 10/18/2023 2:34 PM EST Called pt LMOM for a return call to set up appt [facility] HospitalSieffp83-99-7369 Telephone encounter Note* Telephone Encounter - Sydni Rodrigues - 10/14/2023 8:56 AM EST Called pt LMOM for a return call to r/s appt [facility] HospitalPepsqm51-91-5209 Telephone encounter Note* Telephone Encounter - Regino Ortiz - 10/14/2023 7:58 AM EST Preferred contact number: [phone] Reason for Visit: Jun called in to cancel his appt this morning. He woke up and is very sick. Please contact him to reschedule. Urgency of Appointment: office visit [facility] HospitalCmwkni12-25-7293 Telephone encounter Note* Telephone Encounter - Darya Payne - 08/23/2023 1:47 PM EST 2nd attempt to schedule, no answer, left message. [place] [id number] Miscellaneous Notes* Telephone Encounter - Darya Payne [...] 8:30 AM EST ----- Patient discharged from [facility]. Please assist with s/p hosp "[facility]," okay within the next ~week. Thanks! documented in this encounterSUpper Valley Medical CenterHeridf79-85-4601 Telephone encounter Note* Telephone Encounter - Daryabernadette Payne - 08/18/2023 2:13 PM EST Left message requesting a call back from the patient to schedule appointment. [facility] HospitalNxjaoa51-02-3742 Telephone encounter Note* Telephone Encounter - Daryabernadette Payne - 08/18/2023 2:12 PM EST ----- Message from DENIA Dumont CNP sent at 08/18/2023 8:30 AM EST ----- Patient discharged from [facility]. Please assist with s/p hosp "[facility]," okay within the next ~week. Thanks! [facility] HospitalFnvvvk91-27-0760 Emergency department Note* Mary Ann Meraz RN - 08/17/2023 3:11 PM EST Patient education given in regard to medications, as well as following-up with PCP. Patient given eliquis information packet, understanding well. Mary Ann Meraz RN 08/17/231510 [employer] ProductsOotvcw31-93-6817 Emergency department Note* Mary Ann Meraz RN - 08/17/2023 3:11 PM EST Patient education given in regard to medications, as well as following-up with PCP. Patient given eliquis information packet, understanding well. Mary Ann Meraz RN 08/17/231510 * Dangelo Horne DO - 08/16/2023 6:16 PM EST Emergency Department Encounter [facility] ED Patient: Jun Snyder : [...] 08/16/2023 6:16 PM EST Emergency Department Encounter [facility] ED Patient: Jun Snyder : [...] gross facial drooping. No obvious neurologic deficits. Autocad strength symmetrical. Moves all 4 extremities spontaneously. [...] 364 ms QTC Interval 491 ms P Afton degrees QRS Afton 61 degrees T Wave Afton -20 degrees NV Interval ms Radiographs: XR chest 1 view Final Result 1. Cardiomegaly. 2. No other acute findings. Report Dictated on Electronically Signed By: Justo Milan MD Electronically Signed Date/Time: 08/16/2023 6:42 PM EST : EKG: All EKG's areinterpreted by the Emergency Department Physician in the absence of a customer care coordinator. see their note for interpretation of EKG. [...] for new onset A-fib. Patient excepted to [facility]. Final Diagnosis: 1. New onset a-fib (CMS/HCC) ([facility]) Medications - No data to display Diagnoses as of 08/16/232129 New onset a-fib (CMS/HCC) ([facility]) CRITICAL CARE TIME CONSULTS: None PROCEDURES: Unless otherwise noted below, none Procedures DISPOSITION/PLAN Admit 08/16/2023 08:09:48 PM PATIENT REFERRED TO: No follow-up provider specified. DISCHARGE MEDICATIONS: New Prescriptions No medications on file @[facility]([id number]:LAST:1)@ (Please note: Portions of this note were completed with a voice recognition program. Efforts were made to edit the dictations but occasionally words and phrases are mis-transcribed.) Form [id number] Sha Granados PA-C [employer] Sha Chandana Granados PA-C 08/16/232129 documented in this [facility]11-21-2023 Hospital Discharge instructions* Discharge Instr - Other Orders* DENIA Lorenzo CNP - 08/17/2023 3:02 PM EST Please discontinue Labetalol and Caduet; see discharge medication list Next dialysis session is 08/18/23 as previously instructed * Attachments The following attachments cannot be sent through Care Everywhere. * Atrial Fibrillation (Jamaican) * Going Home on Blood Thinners (Jamaican) * Apixaban, ADULT (Jamaican) documented in this [facility]11-21-2023 History of Present illness Narrative* [...] Past Medical History: Diagnosis Date Hemodialysis patient ([facility]/HCC) (HCC) Hypertension IgA nephropathy LABS: CBC: Recent [...] Information Primary Emergency Contact: Alexx Snyder [address]: [address] [place], [place] [id number] [facility] of [place] Relation: Child DENIA Lorenzo CNP Division of Hospitalist Medicine Inpatient Medical Services/[place] Comment: Please note this report has been [...] reflects time of documentation. documented in this [facility]11-21-2023 Consult note* Rj Villela MD - 08/17/2023 10:16 AM ESTAssociated Order(s): IP CONSULT TO CARDIOLOGY [facility] CARDIOLOGY CONSULTATION Patient Name: Jun Snyder : [...] to left heart disease. Rj [place]la M.D., Mariama.KyleeCRomuloC. Remedial Reading Teacher Chief, Division of Cardiac Imaging Clinical Sediment Remediation Consultant, MEDIC[facility] Data Collection Cardiac Testin08/16/23 ECG [...] a past medical history of Hemodialysis patient ([facility]) (HCC), Hypertension, and IgA nephropathy. He [...] alert. Psychiatric: Mood and Affect: Mood normal. A[employer] Phone: [phone] 176-250311-21-2023 Consult note* Rj Villela MD - 08/17/2023 10:16 AM ESTAssociated Order(s): IP CONSULT TO CARDIOLOGY [facility] CARDIOLOGY CONSULTATION Patient Name: Jun Snyder : [...] left heart disease. Rj [place]la M.D., F.A.CRomuloC. Remedial Reading Teacher Chief, Division of Cardiac Imaging Clinical Sediment Remediation Consultant, [facility] Data Collection Cardiac Testin08/16/23 ECG [...] a past medical history of Hemodialysis patient ([facility]) (HCC), Hypertension, and IgA nephropathy. He [...] and Affect: Mood normal. documented in this [facility]11-20-2023 History and physical note* Earlene Irving MD - 08/16/2023 8:38 PM EST Images from the original note were not included. History and Physical [facility] Jun Snyder : 1965 AGE 57 y.o. [...] WedAug 16, 2023 8:09 PM (Active) Physician Forestry Laborer: Sha Granados PA-C, starting on WedAug 16, [...] him When he was getting dialysis his security guard detected irregular rhythm suspected A-fib and referred [...] Past Medical History: Diagnosis Date Hemodialysis patient ([facility]) (HCC) Hypertension IgA nephropathy Past Surgical [...] 08/16/2023 364 QTC Interval 08/16/2023 491 QRS Afton 08/16/2023 61 T Wave Afton 08/16/2023 -20 SODIUM 08/16/2023 133 (L) POTASSIUM [...] QT Interval 364 QTC Interval 491 P Afton QRS Afton 61 T Wave Afton -20 NV Interval Impression ATRIAL FIBRILLATION, V-RATE 88-139 INCOMPLETE [...] monitor him on telemetry asked cardiology to [facility] we will additionally request echocardiogram. He is not experiencing chest pain but he is a current smoker and I do not see a recent cardiac work-up in the computer EKG on admission did confirm atrial fibrillation but he is currently in sinus rhythm Anticoagulation yet to be determined His current [id number] score would be 1 based upon history [...] to due risk bleed/procedure 08/16/2023 Jun Snyder [id number] Any scheduled follow up appointments No future appointments. Extended Emergency Contact Information Primary Emergency Contact: Alexx Snyder Address: [address] [place] [address]. [place] [address] [place] of [place] Relation: Child Portions of this note may be electronically transcribed. Please forward a copy of this H&P to the primary care physician. [facility] HospitalYfvppj02-06-0627 History and physical note* Earlene Irving MD - 08/16/2023 8:38 PM EST Images from the original note were not included. History and Physical [facility] Jun Snyder : 1965 AGE 57 y.o. [...] WedAug 16, 2023 8:09 PM (Active) Physician Forestry Laborer: Sha Granados PA-C, starting on WedAug 16, [...] him When he was getting dialysis his security guard detected irregular rhythm suspected A-fib and referred [...] Past Medical History: Diagnosis Date Hemodialysis patient ([facility]) (HCC) Hypertension IgA nephropathy Past Surgical [...] 08/16/2023 364 QTC Interval 08/16/2023 491 QRS Afton 08/16/2023 61 T Wave Afton 08/16/2023 -20 SODIUM 08/16/2023 133 (L) POTASSIUM [...] QT Interval 364 QTC Interval 491 P Afton QRS Afton 61 T Wave Afton -20 NV Interval Impression ATRIAL FIBRILLATION, V-RATE 88-139 INCOMPLETE [...] Anticoagulation yet to be determined His current [id number] score would be 1 based upon history [...] to due risk bleed/procedure 08/16/2023 Jun Snyder [id number] Any scheduled follow up appointments No future appointments. Extended Emergency Contact Information Primary Emergency Contact: Adrian Snyderad Address: [address] [place] [address] of [employer] Relation: Child Portions of this note may be electronically transcribed. Please forward a copy of this H&P to the primary care physician. documented in this [facility]11-20-2023 Physician Emergency department Note* Dangelo Horne DO - 08/16/2023 6:16 PM EST Emergency Department Encounter [facility] ED Patient: Jun Snyder : [...] Horne DO 08/16/231922 Dangelo Horne DO 08/16/231957 [employer] Phone: [phone] Physician Emergency department Note* Sha Granados PA-C - 08/16/2023 6:16 PM EST Emergency Department Encounter [facility] ED Patient: Jun Snyder : [...] Past Medical History: Diagnosis Date Hemodialysis patient ([facility]/HCC) (HCC) Hypertension Past Surgical History: Procedure Laterality Date APPENDECTOMY FISTULAGRAM (HISTORICAL) Left 09/15/2021 LEFT UPPER ARM HX AV FISTULA CREATION IR FISTULAGRAM 08/07/2022 IR FISTULAGRAM 08/07/2022 [facility] IR IMAGING TONSILLECTOMY (HISTORICAL) Social [...] gross facial drooping. No obvious neurologic deficits. Autocad strength symmetrical. Moves all 4 extremities spontaneously. [...] 364 ms QTC Interval 491 ms P Afton degrees QRS Afton 61 degrees T Wave Afton -20 degrees NV Interval ms Radiographs: XR chest 1 view Final Result 1. Cardiomegaly. 2. No other acute findings. Report Dictated on Electronically Signed By: Justo Milan MD Electronically Signed Date/Time: 08/16/2023 6:42 PM EST : EKG: All EKG's areinterpreted by the Emergency Department Physician in the absence of a customer care coordinator. see their note for interpretation of EKG. EMERGENCY DEPARTMENT COURSE and DIFFERENTIAL DIAGNOSIS/MDM: External Records Review: . Social Determinants of Health: . Jun Snyder is a 57 y.o. male who [facility] the [facility] Patient presented he was slightly [...] for new onset A-fib. Patient excepted to [facility]. Final Diagnosis: 1. New onset a-fib (CMS/HCC) (HCC) Medications - No data to display Diagnoses as of 08/16/232129 New onset a-fib (CMS/HCC) ([facility]) CRITICAL CARE TIME CONSULTS: None PROCEDURES: Unless otherwise noted below, none Procedures DISPOSITION/PLAN Admit 08/16/2023 08:09:48 PM PATIENT REFERRED TO: No follow-up provider specified. DISCHARGE MEDICATIONS: New Prescriptions No medications on file @[facility]([id number]:LAST:1)@ (Please note: Portions of this note were completed with a voice recognition program. Efforts were made to edit the dictations but occasionally words and phrases are mis-transcribed.) Form [id number] Sha Granados PA-C Acute [facility] Sha Granados PA-C 08/16/232129 [facility]08-05-2023 Hospital Discharge instructions* Discharge Instructions* Jese [...] petroleum jelly on it. documented in this [facility]08-05-2023 Emergency department Note* Jese Frank [...] stage renal disease) on dialysis ([facility]): complicated acute illness or injury Skin [...] stage renal disease) on dialysis ([facility]) * No order type specified * [...] stage renal disease) on dialysis ([facility]) DISPOSITION/PLAN DISPOSITION Discharge 05/01/2023 08:15:56 PM PATIENT REFERRED TO: Daryn Loomis MD [address] [facility] [place] [address] In 1 week [facility] [address] [place] [address] [address] [address] I prescribed: New Prescriptions EMOLLIENT [...] has no further needs. documented in this [facility]08-05-2023 Emergency department Triage note* Sony [...] within reach. Patient has no further needs. [facility] HospitalTgcruv44-05-7227 Physician Emergency department Note* Jese Frank MD [...] stage renal disease) on dialysis ([facility]): complicated acute illness or injury Skin [...] stage renal disease) on dialysis ([facility]) * No order type specified * [...] stage renal disease) on dialysis ([facility]) DISPOSITION/PLAN DISPOSITION Discharge 05/01/2023 08:15:56 PM PATIENT REFERRED TO: Daryn Loomis MD [address] [facility] [place] [address] In 1 week [facility] [address] [place] [address] [address] [address] I prescribed: New Prescriptions EMOLLIENT [...] MD (electronically signed) Jese Frank MD 05/01/232038 [id number] Miscellaneous Notes* Telephone Encounter - Karly Fortune Pss - 01/01/2022 2:36 PM EDT I scheduled him w/ Dr. reid on WednesdayFebruary 16 and left him a detailed vm that I did. This is all have at [facility] bc we are in to March and jair needs a Wednesday or Wednesday bc of dialysis I am sorry, I don't have solution or advise for hospital schedule issues. Next best thing is to discuss with Naomi. May be when Dr. King or Marti come in for special cases to [facility], can this case beincluded at that time. Or if you cancel [facility] schedule and make room for me to come to [facility] any day I can get this done. Thanks! * Telephone Encounter - Karly Fortune Pss - 12/30/2021 10:36 AM EDT Frankietr I had him scheduled for his colon w/ you for next WednesdayJanuary 05 but Peggy ramirez said he has to be done at [facility] bc of his hgb. I have no openings at [facility] and I don't know what to do Can you please let me know how to proceed. Thank you Eryn PS I NEED A NEW COLON ORDER FOR [facility] documented in this encounterM[facility]04-05-2022 Miscellaneous Notes* Telephone Encounter - Karly Fortune [facility] - 12/30/2021 9:33 AM EDT Antonio Painter saw a patient the other day and he ordered him a colon for blood loss anemia I scheduled him for [place] but his hgb is 6 so Charo wants him at [facility] . He is also on dialysisand could only do a Wednesday. All docs are booked until March You had a cancellation for next . Can I please put him w/ you? Thank you Eryn documented in this encounterMari[facility] Hospital04-04-2022 Miscellaneous Notes* Telephone Encounter - Karly Fortune [facility] - 12/29/2021 4:18 PM EDT Antonio I know this patient saw Inocencio the other day as a new patient. I have him scheduled her and his hgb is 6 Could you please do an order for me? I have to get him on tayo Thanks Eryn documented in this encounterMarietta [facility] Hospital03-31-2022 History of Present illness Narrative* [...] for internal providers or letter via the [employer] for external providers. HPI: Jun [...] CKD (chronic kidney disease) Dialysis T/Th/Sat @ [facility], Home hemodialysis since 09/2019 Diverticulosis [...] 12/25/21 TIME: 3:56 PM documented in this encounterMarietta [facility] Hospital01-31-2020 History of Present illness Narrative* Miracle Jaramillo RN - 10/27/2019 9:00 PM EST Patient left via wheelchair with family member. Pt left with all of documented belongings. * Blane Lei RN - 10/27/2019 2:30 PM EST Patient Name: Glenn Snyder Patient : 1965 Acct: [id number] Date of Admission: 10/19/2019 Room/Bed: [address] [place] [address] Code Status: Full Code Allergies: Allergies Allergen [...] (Bicarb): 35 Na+ Modeling: Not Applicable Dialyzer: [id number] Dialysate Temperature (C): 36 Blood Flow Rate [...] - Before each treatment: Dialysis Machine No.: [id number] RO Machine No.: [id number] Dialyzer Lot No.: [id number] RO Machine Log Sheet Completed: Yes Machine Alarm Self Test: Completed;Passed (10/27/19 1410) Machine Autotest: Completed, Passed Air Foam Detector: Tested, Proper Function, pH Reading Extracorporeal Circuit Tested for Integrity: Yes Machine Conductivity: 13.9 Manual Conductivity: 13.7 Machine Ph: 7 Manual Ph: 7 Bleach Test (Neg): Yes Bath Temperature: 96.8 F (36 C) Tubing Lot#: [id number] Conductivity Meter Serial #: [id number] All Connections Secure?: Yes Venous Parameters Set?: [...] Pedraza MD - 10/27/2019 11:26 AM EST [facility] Progress Note SUBJECTIVE: Glenn Snyder [...] never had kidney Bx and never saw security guard before BLOSSOM might be from CKD progression [...] . Pt is likely ESRD. Pt on [facility] HD schedule. Last HD session 10/25 Next HD session today Pt has HD spot at [facility]. 2- Hyperkalemia: resolved with HD 3-high anion gap acidosis likely from CKD and BLOSSOM Resolved with HD 4- Hyperphosphatemia: Continue Phosphorus binder 5- HTN: Improved with HD. Continue same BP meds Monitor BP Ok to d/c patient from nephro stand point Will continue to follow Please call if any question at [phone] JEANA PEDRAZA MD 10/27/2019 11:26 AM * Jeana Pedraza MD - 10/26/2019 4:25 PM EST [facility] Progress Note SUBJECTIVE: Glenn Snyder [...] 8.7 9.0 Last 3 CBC: Recent Labs 10/24/195 10/25/19 0338 10/26/19 0503 WBC 9.7 11.2* [...] never had kidney Bx and never saw security guard before BLOSSOM might be from CKD progression [...] follow Please call if any question at [phone] JEANA PEDRAZA MD 10/26/2019 4:25 PM * Kimber Bajwa RN - 10/26/2019 10:46 AM EST Patient returned from US renal biopsy. VSS, see record. Magenaide is dry and intact to right flank area. Patient instructed on need for bedrest until 12:45. * Darell Sanches DO - 10/26/2019 8:19 AM EST Hospitalist Progress Note 10/26/2019 8:19 AM [phone]: Please page me ([phone]) for patient care issues. [phone]: Please page [facility] night Hospitalist for any issues. Subjective: [...] lab Plan -daily weights, I&Os, dialysis per security guard -renal biopsy and dialysis cath pending, security guard following -am labs, replace lytes prn -increase activity -DVT prophylaxis: [] Lovenox [x] Heparin [] SCDs [x] Encourage ambulation [] Already on Anticoagulation Advance Directive: Full Code Discharge planning: Awaiting dialysis cath and renal biopsy. Can be discharge once outpatient dialysis arrangements have been made Darell Sanches DO Division of Hospitalist Medicine Inpatient Medical Services PAGER: [phone] ELENA * Ivett Cope, RN - 10/25/2019 4:23 PM ROSA ELENA [...] and discharge needs Received a call from [employer] regarding pt dialysis chair spot. Was informed [...] 5. Fluid Accumulation-No significant fluid accumulation, 6. Autocad Strength-Normal Nutrition Risk Level: High Nutrient Needs: Estimated Daily Total Kcal: 8691-8432 Estimated Daily Protein (g): 60-90 Estimated Daily Total Fluid (ml/day): per md Nutrition Diagnosis: Problem: Altered nutrition-related lab values, Predicted suboptimal energy intake, Increased nutrient needs Etiology: related to Renal dysfunction ? Signs and symptoms: as evidenced by Known losses from dialysis, Weight loss, Lab values Objective Information: Nutrition-Focused Physical Findings: appetite improved, no edema, bun 39 , creat 9.71, wbc11.9ggpyw5.3,on renvela tid- NO DRY WT EST. off [...] kg)(summer 2018) % Weight Change: , na Universal Body Wt: 166 lb (75.3 kg), % Universal Body 121 Adjusted Body Wt: , body [...] EST Hospitalist Progress Note 10/25/2019 5:02 PM [phone]: Please page me ([phone]) for patient care issues. [phone]: Please page [facility] night Hospitalist for any [...] lab Plan -daily weights, I&Os, dialysis per security guard -renal biopsy and dialysis cath pending, security guard following -am labs, replace lytes prn -increase activity -DVT prophylaxis: [] Lovenox [x] Heparin [] SCDs [x] Encourage ambulation [] Already on Anticoagulation Advance Directive: Full Code Discharge planning: awaiting dialysis cath and renal biopsy Darell Sanches DO [facility] PAGER: [phone] * Ramon Mei, RN - 10/25/2019 11:46 AM EST Patient Name: Glenn Snyder Patient : 1965 Acct: [id number] Date of Admission: 10/19/2019 Room/Bed: 156/1561 Code [...] (Bicarb): 35 Na+ Modeling: Not Applicable Dialyzer: [id number] Dialysate Temperature (C): 36 Blood Flow Rate [...] - Before each treatment: Dialysis Machine No.: [id number] Machine No.: [id number] Dialyzer Lot No.: [id number] RO Machine Log Sheet Completed: Yes Machine Alarm Self Test: Completed;Passed (10/25/19 1120) Machine Autotest: Completed, Passed Air Foam Detector: Tested, Proper Function, pH Reading Extracorporeal Circuit Tested for Integrity: Yes Machine Conductivity: 14 Manual Conductivity: 14.1 Machine Ph: 7 Manual Ph: 7 Bleach Test (Neg): Yes Bath Temperature: 96.8 F (36 C) Tubing Lot#: [id number] Conductivity Meter Serial #: [id number] All Connections Secure?: Yes Venous Parameters Set?: [...] Evaluate (10/25/19 124) Provider Name: Keila (10/25/19 [facility]) Provider Notification: Physician (10/25/19 124) Method of [...] Pedraza MD - 10/25/2019 7:58 AM EST [facility] Progress Note SUBJECTIVE: Glenn Snyder [...] never had kidney Bx and never saw security guard before BLOSSOM might be from CKD progression [...] finding . Patient to have kidney bx toa Pt is likely ESRD. Pt on MWF HD schedule. HD session today Will switch HD access to [facility] tomorrow 2- Hyperkalemia: resolved with HD 3-high anion gap acidosis likely from CKD and BLOSSOM Resolved with HD 4- Hyperphosphatemia: P level improved from 14->5.8 Continue Phosphorus binder 5- HTN: Improved with HD Monitor BP Will continue to follow Please call if any question at [phone] JEANA PEDRAZA MD 10/25/2019 7:58 AM * Ellie Mireles, NIKKY, LD - 10/24/2019 3:43 PM EST Patient to be discharged today . Provided diet education for renal diet- 80- 90 gm pro, 2000 calorie, 2 gram potassium, [address] contact number for questions., concerns . Will follow upif not discharged. * Darell Sanches, - 10/24/2019 11:38 AM EST Hospitalist Progress Note 10/24/2019 11:38 AM [phone]: Please page me ([phone]) for patient care issues. [phone]: Please page [facility] night Hospitalist for any issues. Subjective: [...] lab Plan -daily weights, I&Os, dialysis per security guard -renal biopsy and dialysis cath pending, security guard following -am labs, replace lytes prn -increase activity -DVT prophylaxis: [] Lovenox [x] Heparin [] SCDs [x] Encourage ambulation [] Already on Anticoagulation Advance Directive: Full Code Discharge planning: ok to discharge today pending renal biopsy and dialysis cath placement Darell Sanches DO Division of Hospitalist Medicine Inpatient Medical Services PAGER: [phone] * Ivett Cope RN - 10/24/2019 10:48 AM EST Microbiology called, pt has 3x blood cultures drawn on 10/19. One came back with Gram positive rods.[employer] message sent to [facility] Dr Sanches regarding results * Jeana Pedraza MD - 10/24/2019 9:15 AM EST [facility] Progress Note SUBJECTIVE: Glenn Snyder [...] Noted Acute renal failure (ARF) ([facility]) 10/19/2019 ASSESSMENT/PLAN: 1. BLOSSOM . Pt likely has CKD at baseline. No previous Cr values to compare. CKD could be from HTN induced nephrosclerosis VS GN since the patient has h/o proteinuria /hematuria since 2000 but he never had kidney Bx and never saw security guard before BLOSSOM might be from CKD progression [...] follow Please call if any question at [phone] JEANA PEDRAZA MD 10/24/2019 9:15 AM * Radha Foreman RN - 10/23/2019 7:21 PM EST Patient Name: Glenn Snyder Patient : 1965 Acct: [id number] Date of Admission: 10/19/2019 [facility] Code Status: Full Code Allergies: Allergies Allergen [...] (Bicarb): 35 Na+ Modeling: Not Applicable Dialyzer: [id number] Dialysate Temperature (C): 35 Blood Flow Rate [...] - Before each treatment: Dialysis Machine No.: [id number] RO Machine No.: [id number] Dialyzer Lot No.: [id number] RO Machine Log Sheet Completed: Yes Machine Alarm Self Test: Completed;Passed (10/23/19 1710) Machine Autotest: Completed, Passed Air Foam Detector: Tested, Proper Function, pH Reading Extracorporeal Circuit Tested for Integrity: Yes Machine Conductivity: 13.7 Manual Conductivity: 13.6 Machine Ph: 7 Manual Ph: 7 Bleach Test (Neg): Yes Bath Temperature: 95 F (35 C) Tubing Lot#: [id number] Conductivity Meter Serial #: [id number] All Connections Secure?: Yes Venous Parameters Set?: [...] from secondary) Comment", Waited for RN supervisor core drilling for 2nd water check. Access Flows and [...] Patel MD - 10/23/2019 4:54 PM EST [facility] Progress Note SUBJECTIVE: Glenn Snyder [...] with patient in detail. 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 Currently not working. 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 Apparently he was admitted at a hospital in [place] about 5 years ago and had cystoscopy [...] EST Hospitalist Progress Note 10/23/2019 5:02 PM [phone]: Please page me ([phone]) for patient care issues. [phone]: Please page [facility] night Hospitalist for any issues. Subjective: [...] anemia Plan -daily weights, I&Os, dialysis per security guard -renal biopsy and temp dialysis cath pending, security guard to arrabge -am labs, replace lytes prn -increase activity -DVT prophylaxis: [] Lovenox [x] Heparin [] SCDs [x] Encourage ambulation [] Already on Anticoagulation Advance Directive: Full Code Discharge planning: likely discharge in next 24 hours Darell Sanches DO Division of Hospitalist Medicine Inpatient Medical Services PAGER: [phone] * Darell Sanches DO - 10/22/2019 2:17 PM EST Hospitalist Progress Note 10/22/2019 2:17 PM [phone]: Please page me ([phone]) for patient care issues. [phone]: Please page [facility] Hospitalist for any issues. Subjective: Admit Date: [...] anemia Plan -daily weights, I&Os, dialysis per security guard -discussed with patient and he is willing to have the renal bx done. Will notify security guard -am labs, replace lytes prn -increase activity -DVT prophylaxis: [] Lovenox [x] Heparin [] SCDs [x] Encourage ambulation [] Already on Anticoagulation Advance Directive: Full Code Discharge planning: likely discharge in next 1-2 days after renal biopsy Darell Sanches DO Division of Hospitalist Medicine Inpatient Medical Services PAGER: [phone] * Randolph Liz MD - 10/22/2019 12:46 PM EST [facility] [address] [place] [address] Progress Note Subjective: Patient seen [...] EST Hospitalist Progress Note 10/21/2019 10:35 PM [phone]: Please page me ([phone]) for patient care issues. [phone]: Please page [facility] night Hospitalist for any [...] bolus, 20 mL, Intravenous, Once, Delon Jessica, DOCUMENT CLERK - VIDEO PRODUCTION ASSISTANT hydrALAZINE (APRESOLINE) injection 10 mg, 10 mg, [...] of Hospitalist Medicine Inpatient Medical Services PAGER: [phone] * Randolph Liz MD - 10/21/2019 1:44 PM EST [facility] [address] [place] [address] Progress Note Subjective: Patient seen [...] Name: Glenn Snyder Patient : 1965 Acct: [id number] Date of Admission: 10/19/2019 Room/Bed: 222/2225 Code [...] HCO3 (Bicarb): 35 Na+ Modeling: NA Dialyzer: [id number] Dialysate Temperature (C): 36 Blood Flow Rate [...] Regular Unlabored None (Room air) Expiratory wheezes Harold Dry;Warm Distended;Rounded;Soft Audible Generalized 0 10/21/19 1300 0 3 Regular Unlabored None (Room air) Clear;Diminished Harold Dry;Warm Distended;Rounded;Soft Active Generalized 0 Labs Recent [...] - Before each treatment: Dialysis Machine No.: [id number] RO Machine No.: [id number] Dialyzer Lot No.: [id number] RO Machine Log Sheet Completed: Yes Machine Alarm Self Test: Completed;Passed (10/21/19939) Machine Autotest: Completed, Passed Air Foam Detector: Tested, Proper Function, pH Reading Extracorporeal Circuit Tested for Integrity: Yes Machine Conductivity: 13.7 Manual Conductivity: 13.8 Machine Ph: 7 Manual Ph: 7 Bleach Test (Neg): Yes Bath Temperature: 96.8 F (36 C) Tubing Lot#: [id number] Conductivity Meter Serial #: [id number] All Connections Secure?: Yes Venous Parameters Set?: [...] Name: Glenn Snyder Patient : 1965 Acct: [id number] Date of Admission: 10/19/2019 Room/Bed: 222/2225 Code [...] (Bicarb): 35 Na+ Modeling: Not Applicable Dialyzer: [id number] Dialysate Temperature (C): 36 Blood Flow Rate [...] x3 Regular Unlabored None (Room air) Clear Harold Dry;Warm Good Soft Active None 0 10/20/19 [...] - Before each treatment: Dialysis Machine No.: [id number] RO Machine No.: [id number] Dialyzer Lot No.: [id number] RO Machine Log Sheet Completed: Yes Machine Alarm Self Test: Completed;Passed (10/20/19 1525) Machine Autotest: Completed, Passed Air Foam Detector: Tested, Proper Function, pH Reading Extracorporeal Circuit Tested for Integrity: Yes Machine Conductivity: 13.6 Manual Conductivity: 13.6 Machine Ph: 7 Manual Ph: 7 Bleach Test (Neg): Yes Bath Temperature: 96.8 F (36 C) Tubing Lot#: [id number] Conductivity Meter Serial #: [id number] All Connections Secure?: Yes Venous Parameters Set?: [...] Pedraza MD - 10/20/2019 2:42 PM EST [facility] Progress Note SUBJECTIVE: Glenn Snyder [...] Noted Acute renal failure (ARF) ([facility]) 10/19/2019 ASSESSMENT/PLAN: 1. BLOSSOM . Pt likely has CKD at baseline. No previous Cr values to compare. CKD could be from HTN induced nephrosclerosis VS GN since the patient has h/o proteinuria /hematuria since 2000 but he never had kidney Bx and never saw security guard before BLOSSOM might be from CKD progression [...] follow Please call if any question at [phone] JEANA PEDRAZA MD 10/20/2019 2:43 PM * Dorcas Chin APRN - CNP - 10/20/2019 12:03 PM EST Patient transferred from ICU to [facility] service * Brett Encarnacion MD - [...] []Injected [x]Non-Injected / Pinnae [x]Normal []Other/ Dentitian []Resighini Teeth []Dentures Oral Mucosa [x]Harold [x]Moist []Dry/ Oral ETT []Present [x]Absent Neck: [...] [x]Absent/ GUAN ([x]RUE [x]RLE [x]LUE [x]LLE) Neurologic: QAGAN TAYAGUNGIN []Yes [x]No Corneal reflexes []Present []Absent / [...] Ordering Physician MD ENCARNACION MATTHEW Accession Number [id number] CPT4 Codes 13431 () Reason For Exam line placement/vascath Report [...] 5. Fluid Accumulation-No significant fluid accumulation, 6. Autocad Strength-Not measured Nutrition Risk Level: High Nutrient Needs: Estimated Daily Total Kcal: 9070-6462 Estimated Daily Protein (g): 60-90 Estimated Daily [...] Wt: (na) % Weight Change: , na Universal Body Wt: 166 lb (75.3 kg), % Universal Body 132 Adjusted Body Wt: , body [...] Name: Glenn Snyder Patient : 1965 Acct: [id number] Date of Admission: 10/19/2019 Room/Bed: [address] [place] [address] Code Status: No Order Allergies: No Known [...] (Bicarb): 40 Na+ Modeling: Not Applicable Dialyzer: [id number] Dialysate Temperature (C): 36 Blood Flow Rate [...] - Before each treatment: Dialysis Machine No.: [id number] RO Machine No.: [id number] Dialyzer Lot No.: [id number] RO Machine Log Sheet Completed: Yes Machine Alarm Self Test: Completed;Passed (10/19/191244) Machine Autotest: Completed, Passed Air Foam Detector: Proper Function, Tested, pH Reading Extracorporeal Circuit Tested for Integrity: Yes Machine Conductivity: 13.8 Manual Conductivity: 13.7 Machine Ph: 7 Manual Ph: 7 Bleach Test (Neg): Yes Bath Temperature: 96.8 F (36 C) Tubing Lot#: [id number] Conductivity Meter Serial #: [id number] All Connections Secure?: Yes Venous Parameters Set?: [...] to Education: Verbalized Understanding documented in this encounterSUMNJ Work Phone: [phone] Hospital course Narrative* [place], Darell, DO - 10/27/2019 11:23 AM EST [...] to presentation. Admitted to ICU, seen by security guard and HD initiated. Stabilized and transferred out [...] Medications: Glenn Snyder Home Medication Instructions JOSE M:[id number] Printed on:10/27/19 1123 Medication Information amLODIPine (NORVASC) 5 MG tablet Take 1 tablet by mouth daily metoprolol tartrate (LOPRESSOR) 25 MG tablet Take 0.5 tablets by mouth 2 times daily sevelamer (RENVELA) 800 MG tablet Take 2 tablets by mouth 3 times daily (with meals) Recommended Follow-up: security guard In 3 weeks post hospital fu appt Brenton Mckeon MD [address] [facility] [phone] In 2 weeks post hospital fu appt Readmission Risk Risk of Unplanned Readmission: 15 Complexity of Follow up: ? Moderate Complexity: follow up within 7-14 calendar days (13539) ? Severe Complexity: follow up within 7 calendar days (24216) Follow up Testing, Pending results or Referrals [...] frame. Signed: Darell Sanches DO [facility] 10/27/2019, 11:23 AM documented in this encounterSUMMA Work Phone: [phone] Hospital Discharge instructions* Discharge Instr - Activity* [...] at most local grocery stores, pharmacies, and [employer]-stores. ? If you have any questions about your diet or nutrition, call the hospital and ask for the dietitian. * Discharge Instr - Lab* Sophia Bai RN - 10/24/2019 2:21 PM EST [facility] [phone] offer services including medical, dental, [facility], behavioral health and a reduced-rate pharmacy. Fees are based on current income and family size. Please refer to your handout for additional information and all location options. [address] [facility] [place] [address] Wednesday 8 AM 6 PM Wednesday 8 AM 2 PM Hemodialysis will be Wednesday, Wednesday and Wednesday at [facility] located at [address] [place] [address] or [phone] Please arrive at 9:45 am * Additional [...] through Care Everywhere. * Kidney Biopsy: Post-op (J[place]ican) documented in [facility] Work Phone: Evaluation note* Diagnosis Acute kidney injury (HCC)- Primary Acute kidney failure, unspecified Uncontrolled hypertension Unspecified essential hypertension Normocytic anemia Anemia, unspecified Angioedema, initial encounter Hyperkalemia Hyperpotassemia Metabolic acidosis Acidosis Rectal bleeding Hemorrhage of rectum and anus Acute renal failure (ARF) (HCC) Acute kidney failure, unspecified documented in this encounter [facility] Work Phone: Evaluation note* Diagnosis Acute blood loss anemia- Primary Acute posthemorrhagic anemia Rectal bleeding Hemorrhage of rectum and anus [facility] Diagnosis Other iron deficiency anemia- Primary Rectal bleeding Hemorrhage of rectum and anus [facility] encounter [facility]* Diagnosis Skin sore- Primary ESRD (end stage renal disease) on dialysis (HCC) End stage renal disease [facility] Diagnosis New onset a-fib (CMS/HCC) (HCC)- Primary Atrial fibrillation New onset a-fib (CMS/HCC) (HCC) Atrial fibrillation Atrial fibrillation, persistent (HCC) [facility] Diagnosis Nonrheumatic aortic valve stenosis- Primary Paroxysmal A-fib (CMS/HCC) (HCC) Primary hypertension Unspecified essential hypertension Calcification of abdominal aorta (HCC) Tobacco abuse Tobacco use disorder ESRD on hemodialysis (CMS/HCC) (HCC) [facility] Diagnosis Personal history of nicotine dependence- Primary Nicotine dependence, cigarettes, uncomplicated [facility] Diagnosis Paroxysmal A-fib (CMS/HCC) (HCC)- [...] of abdominal surgery [facility] Diagnosis Paroxysmal A-fib (CMS/HCC) [...] whether acute cor pulmonale present ([facility]) documented in this encounter [facility]* Diagnosis Paroxysmal A-fib [...] disorder in remission documented in this encounter [facility]* Diagnosis Paroxysmal A-fib [...] Primary Atrial fibrillation [facility] Diagnosis Paroxysmal A-fib (CMS/HCC) (HCC)- [...] hypoxia (HCC) [J96.01] documented in this encounter [facility]* Diagnosis Paroxysmal A-fib [...] hypoxia (HCC) [J96.01] documented in this encounter [facility]* Diagnosis Paroxysmal A-fib (CMS/HCC) [...] with hypoxia (HCC) [J96.01]- Primary Tracheostomy care ([facility]) [Z43.0] Attention to tracheostomy Pulmonary embolism, [...] Decubitus ulcer of sacral region, unstageable (HCC) alf (current) use of antibiotics documented in this [...] Acute respiratory failure with hypoxia ([facility]) [J96.01]- Primary 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] Tracheostomy status Pulmonary embolism, other, unspecified chronicity, unspecified whether acute cor pulmonale present ([facility]) [facility] [...] abuse Tobacco use disorder ESRD on hemodialysis ([facility]) ([facility]) Paroxysmal A-fib ([facility]/HCC) ([facility])- Primary Nonrheumatic aortic valve stenosis Tobacco abuse Tobacco use disorder Alcohol use disorder in remission RSV (acute bronchiolitis due to respiratory syncytial virus)- Primary Acute bronchiolitis due to respiratory syncytial virus (RSV) Tracheostomy dependence ([facility]) Tracheostomy status Acute respiratory failure with hypoxia ([facility]) [J96.01] Leg DVT (deep venous thromboembolism), acute, left ([facility]) Pulmonary embolism, unspecified chronicity, unspecified pulmonary embolism type, unspecified whether acute cor pulmonale present ([facility]) S/P AVR documented in this encounter [facility] HealthEvaluation note* Diagnosis Paroxysmal A-fib ([facility]/HCC) ([facility])- Primary Nonrheumatic aortic valve stenosis Primary hypertension Unspecified essential hypertension ESRD on hemodialysis ([facility]) ([facility]) Calcification of abdominal aorta (HCC) Tobacco abuse Tobacco use disorder Nonrheumatic aortic valve stenosis- Primary Paroxysmal A-fib ([facility]) ([facility]) Primary hypertension Unspecified essential hypertension Calcification of abdominal aorta ([facility]) Tobacco abuse Tobacco use disorder ESRD on hemodialysis ([facility]) ([facility]) Paroxysmal A-fib ([facility]) ([facility])- Primary Nonrheumatic aortic valve stenosis Tobacco abuse Tobacco use disorder Alcohol use disorder in remission Tracheostomy dependence ([facility])- Primary Tracheostomy status ESRD on hemodialysis ([facility]) ([facility]) Ischemic ulcer of toe of left foot, limited to breakdown of skin ([facility]) Sacral osteomyelitis ([facility]) ([facility]) Leukocytosis, unspecified type documented in [facility]* Diagnosis Paroxysmal A-fib ([facility]/HCC) ([facility])- Primary Nonrheumatic aortic valve stenosis Primary hypertension Unspecified essential hypertension ESRD on hemodialysis ([facility]) ([facility]) Calcification of abdominal aorta (HCC) Tobacco abuse Tobacco use disorder Nonrheumatic aortic valve stenosis- Primary Paroxysmal A-fib ([facility]/HCC) ([facility]) Primary hypertension Unspecified essential hypertension Calcification of abdominal aorta (HCC) Tobacco abuse Tobacco use disorder ESRD on hemodialysis ([facility]) ([facility]) Paroxysmal A-fib ([facility]/HCC) ([facility])- Primary Nonrheumatic aortic valve stenosis Tobacco abuse Tobacco use disorder Alcohol use disorder in remission RSV (acute bronchiolitis due to respiratory syncytial virus)- Primary Acute bronchiolitis due to respiratory syncytial virus (RSV) Tracheostomy dependence (HCC) Tracheostomy status Pneumonia of both lungs due to methicillin susceptible Staphylococcus aureus (MSSA), unspecified part of lung (HCC) Acute respiratory failure with hypoxia ([facility]) [J96.01] Nonrheumatic aortic valve stenosis Pulmonary embolism, unspecified chronicity, unspecified pulmonary embolism type, unspecified whether acute cor pulmonale present ([facility]) documented in this encounter [facility] HealthEvaluation note* Diagnosis Paroxysmal A-fib (CMS/HCC) (HCC)- Primary Nonrheumatic aortic valve stenosis Primary hypertension Unspecified essential hypertension ESRD on hemodialysis (CMS/HCC) ([facility]) Calcification of abdominal aorta (HCC) Tobacco abuse Tobacco use disorder Nonrheumatic aortic valve stenosis- Primary Paroxysmal A-fib (CMS/HCC) (HCC) Primary hypertension Unspecified essential hypertension Calcification of abdominal aorta (HCC) Tobacco abuse Tobacco use disorder ESRD on hemodialysis (CMS/[facility]) ([facility]) Paroxysmal A-fib ([facility]/HCC) ([facility])- Primary Nonrheumatic aortic valve stenosis Tobacco abuse Tobacco use disorder Alcohol use disorder in remission Tracheostomy dependence ([facility])- Primary Tracheostomy status ESRD on hemodialysis (CMS/HCC) ([facility]) alf (current) use of antibiotics Decubitus ulcer of sacral region, unstageable (HCC) Sacral osteomyelitis (CMS/HCC) ([facility]) documented in this encounter [facility]* Diagnosis Paroxysmal A-fib (CMS/HCC) (HCC)- Primary Nonrheumatic aortic valve stenosis Primary hypertension Unspecified essential hypertension ESRD on hemodialysis ([facility]) ([facility]) Calcification of abdominal aorta (HCC) Tobacco [...] Acute respiratory failure with hypoxia ([facility]) [J96.01]- Primary RSV (acute bronchiolitis due [...] Decubitus ulcer of sacral region, unstageable (HCC) terminal clerk (current) use of antibiotics documented in [facility] noteNo assessment information availableWSelect [facility] [place] Work Phone: Evaluation note* Diagnosis Paroxysmal A-fib [...] Necrosis (HCC) Gangrene documented in [facility]* [...] use disorder Alcohol use disorder in remission Pressure injury of sacral region, 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) Gangrene of toe of left foot (HCC) Peripheral arterial disease (HCC) Unspecified peripheral vascular disease documented in [facility]* [...] use disorder Alcohol use disorder in remission Epistaxis- Primary Supratherapeutic INR documented in this encounter [facility] HealthEvaluation note* Diagnosis Paroxysmal A-fib [...] use disorder Alcohol use disorder in remission Encounter for removal of nasal packing- Primary Anticoagulated Encounter for long-term (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 anticoagulants Dry gangrene (CMS/HCC) (HCC) documented in this encounter [facility] HealthEvaluation note* Diagnosis Paroxysmal A-fib [...] use disorder Alcohol use 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 Your dressing will be removed at [...] When should you call for help? Call 202 anytime you think you may need emergency [...] call and ask for the Interventional Radiologist semiconductor development technician. Where can you learn more? Go to [email or web address] and sign in to your [employer] account. Enter P616 in the Search Health Information box to learn more about Hemodialysis Access: What to Expect at Home. If you do not have an account, please click on the "Sign Up Now" link. Current as of: August 12, 2016 Content Version: 11.2 0056-4710 [employer]. Care instructions adapted under license by [employer]. If youhave questions about a medical condition or this instruction, always ask your healthcare professional. [employer] disclaims any warranty or liability for your use of this information. documented in [facility] Work Phone: Hospital Discharge instructions* Attachments The following attachments cannot be sent through Care Everywhere. * Gangrene (Jamaican) [facility] Outpatient Procedure (Routine) - Authorized Specialty Diagnoses / Procedures Referred By Manny t Referred To Contact [facility] Diagnoses Acute blood loss anemia Rectal bleeding Procedures COLONOSCOPY DIAGNOSTIC COLONOSCOPY FLX DX W/COLLJ SPEC WHEN Rudy Buitrago MD [address] [place] [address] [place] [phone] Referral ID Status Reason Start Date Expiration Date Visits Requested Visits Authorized [id number] Authorized Auto-Generat ed Referral 12/25/2021 12/25/2022 1 1 [facility] for referral (narrative)* Outpatient Procedure (Routine) - Authorized Specialty Diagnoses / Procedures Referred By Contjayant t Referred To Contact [facility] Diagnoses Other iron deficiency anemia Rectal bleeding Procedures COLONOSCOPY DIAGNOSTIC COLONOSCOPY FLX DX W/COLLJ SPEC WHEN Rudy Buitrago MD [address] [place] [address] [place] [phone] Referral ID Status Reason Start Date Expiration Date Visits Requested Visits Authorized [id number] Authorized Auto-Generat ed Referral 12/30/2021 12/30/2022 1 1 [facility] for referral (narrative)* Consultation (Routine) - Pending Review Specialty Diagnoses / Procedures Referred By Contac t Referred To Contact Wound Care Diagnoses Skin sore Procedures NV OFFICE/OUTPATIENT NEW HIGH MDM 60-74 MINUTES Jese Frank MD [address] [place] [address] [facility] Op Wnd Ostomy [facility] [address] [place] [address] Referral ID Status Reason Start Date Expiration Date Visits Requested Visits Authorized [id number] Pending Review Specialty Services Required 05/01/2023 04/30/2024 1 1 [facility] for [facility] (narrative)No reason for referral information availableWSelect Medical [facility] [place] Work Phone: Reason for visit Narrative* Auth/Cert (Routine) Specialty Diagnoses / Procedures Referred By Contac t Referred To Contact Diagnoses Atrial flutter, unspecified type (HCC) Procedures . Ramón Romano MD [address] [place] [address] Phone: tel: fax: [facility] [address] [place] [address] Phone: tel: Referral ID Status Reason Start Date Expiration Date Visits Re quested Visits Authorized [id number] 1 1 [facility] for visit Narrative* Imaging (Routine) - Closed Specialty Diagnoses / Procedures Referred By Contac t Referred To Contact Radiology Diagnoses Hemoptysis Procedures CT chest wo IV contrast Elly Jett MD [facility] [place] [address] Phone: tel: fax: [address] [place] [address] Phone: tel: fax: Referral ID Status Reason Start Date Expiration Date Visits Re quested Visits Authorized [id number] Closed 02/23/2025 02/23/2026 1 1 [facility] Diagnosis Chronic kidney disease, [...] Documents on File Type Date Recorded Patient [place] Reporter Expl anation Advance Directive(s) 11/22/2020 11:20 AM Advance Directive(s) 06/12/2020 8:15 AM Advance Directive(s) 03/20/2020 7:16 AM Documents on File Type Date Recorded Patient [place]creage Reporter Expl anation Advance Directive(s) 11/22/2020 11:20 AM Advance Directive(s) 06/12/2020 8:15 AM Advance Directive(s) 03/20/2020 7:16 AM Documents on File Type Date Recorded Patient Acreage Reporter Expl anation Power of Straddle Buggy Operator 02/14/2023 1:37 PM Advance Directives and Livin g Will 02/14/2023 1:37 PM Documents on File Type Date Recorded Patient [place]creage Reporter Expl anation Power of Straddle Buggy Operator 02/14/2023 1:37 PM Advance Directives and Livin [...] Documents on File Type Date Recorded Patient Acreage Reporter Expl anation Advance Directives and Livin g Will 10/03/2024 11:27 AM Power of Straddle Buggy Operator 02/14/2023 1:37 PM Advance Directives and Livin g Will 02/14/2023 1:37 PM Date Activated Date Inactivated Comments 10/03/2024 6:19 PM Date Activated Date Inactivated Comments 08/17/2023 12:04 AM 08/17/2023 5:18 PM Documents on File Type Date Recorded Patient Acreage Reporter Expl anation Advance Directives and Livin g Will 10/03/2024 11:27 AM Power of Straddle Buggy Operator 02/14/2023 1:37 PM Advance Directives and Livin [...] Documents on File Type Date Recorded Patient Acreage Reporter Expl anation Power of Straddle Buggy Operator 01/24/2025 12:29 PM Advance Directives and Livin g Will 10/03/2024 11:27 AM Power of Straddle Buggy Operator 02/14/2023 1:37 PM Advance Directives and Livin [...] Omar Lillian Child Health Care Agent [facility] Alternate Health Care Agent Documents on File Type Date Recorded Patient [place]creage Reporter Expl anation Power of Straddle Buggy Operator 01/24/2025 12:29 PM Advance Directives and Livin g Will 10/03/2024 11:27 AM Power of Straddle Buggy Operator 02/14/2023 1:37 PM Advance Directives and Livin [...] Omar Lillian Child Health Care Agent [facility] Alternate Health Care Agent Healthcare Agents on File Name Relationship Healthcare Agent Relationshi p Communication Omar Lillian Child Health Care Agent [facility] Alternate Health Care Agent Healthcare Agents on File Name Relationship Healthcare Agent Relationshi p Communication Omar Lillian Child Health Care Agent [facility] Alternate Health Care Agent Healthcare [...] Toma Wiggins First Alternate Health Care Agent Date Activated [...] Lillian Child Health Care Agent Toma Mcneil [facility] Alternate Health Care Agent Date Activated Date Inactivated Comments 02/21/2025 12:23 AM 03/05/2025 6:36 PM Healthcare Agents on File Name Relationship Healthcare Agent Relationshi p Communication Omar Lillian Child Health Care Agent Toma Mcneil [facility] Alternate Health Care Agent Healthcare Agents on File Name Relationship Healthcare Agent Relationshi p Communication Omar Lillian Child Health Care Agent [facility] Altern[facility] Health Care Agent Documents on File Type Date Recorded Patient [place]cre[place] Reporter Expl anation Power of Straddle Buggy Operator 01/24/2025 12:29 PM Omar Lillian Advance Directives and Livin g Will 10/03/2024 11:27 AM Power of Straddle Buggy Operator 02/14/2023 1:37 PM Advance Directives and Livin [...] Lillian Child Health Care Agent Toma Mcneil [facility] Alternate Health Care Agent Healthcare Agents on File Name Relationship Healthcare Agent Relationshi p Communication Omar Lillian Child Health Care Agent Toma Mcneil [facility] First Alternate Health Care Agent Documents on File Type Date Recorded Patient [place]creage Reporter Expl anation Power of Straddle Buggy Operator 01/24/2025 12:29 PM Omar Lillian Advance Directives and Livin g Will 10/03/2024 11:27 AM Power of Straddle Buggy Operator 02/14/2023 1:37 PM Advance Directives and Livin [...] CT lung screening low dose Fransisco Pineda, DOCUMENT CLERK [address] [place] [address] Referral ID Status Reason Start Date Expiration Date V isits Requested Visits Authorized [id number] Authorized 09/07/2023 09/06/2024 1 1 Chief Complaint and Reason for Visit Chief Complaint Admit Date LABWORK February 05, 2025 5:56a m Chief Complaint Admit Date LABWORK February 05, 2025 5:56a m LABOWRK February 07, 2025 5:00a m LONG TERM LAB WORK February 15, 2025 5:0 0am LONG TERM LAB WORK February 20, 2025 4:0 0am Chief Complaint Admit Date LABWORK February 05, 2025 5:56a m LABOWRK February 07, 2025 5:00a m Chief Complaint Admit Date LABWORK February 05, 2025 5:56a m LABOWRK February 07, 2025 5:00a m LONG TERM LAB WORK February 08, 2025 5:0 0am LONG TERM LAB WORK February 12, 2025 5:0 0am LONG TERM LAB WORK February 13, 2025 5:0 0am LONG TERM LAB WORK February 15, 2025 5:0 0am LONG TERM LAB WORK February 20, 2025 4:0 0am Additional Source Comments Source Comments (unrecognize d section and content) In the event this informatio n is protected by the Federal Confidentiality of Alcohol and Drug Abuse Patient Records regulations: The Federal rules restrict any use of the information to criminally investigate or prosecute any alcohol or drug abuse patient.[facility] Hospital[facility] the event this information is protected by the Federal Confidentiality of Alcohol and Drug Abuse Patient Records regulations: The Federal rules restrict any use of the information to criminally investigate or prosecute any alcohol or drug abuse patient.[facility] HospitalIn the event this information is protected by the Federal Confidentiality of Alcohol and Drug Abuse Patient Records regulations: The Federal rules restrict any use of the information to criminally investigate or prosecute any alcohol or drug abuse patient.[facility] HospitalIn the event this information is protected by the Federal Confidentiality of Alcohol and Drug Abuse Patient Records regulations: The Federal rules restrict any use of the information to criminally investigate or prosecute any alcohol or drug abuse patient.[facility] HospitalIn the event this information is protected by the Federal Confidentiality of Alcohol and Drug Abuse Patient Records regulations: The Federal rules restrict any use of the information to criminally investigate or prosecute any alcohol or drug abuse patient.[facility] HospitalIn the event this information is protected by the Federal Confidentiality of Alcohol and Drug Abuse Patient Records regulations: The Federal rules restrict any use of the information to criminally investigate or prosecute any alcohol or drug abuse patient.[facility] HospitalIn the event this information is protected by the Federal Confidentiality of Alcohol and Drug Abuse Patient Records regulations: The Federal rules restrict any use of the information to criminally investigate or prosecute any alcohol or drug abuse patient.[facility] HospitalIn the event this information is protected by the Federal Confidentiality of Alcohol and Drug Abuse Patient Records regulations: The Federal rules restrict any use of the information to criminally investigate or prosecute any alcohol or drug abuse patient.[facility] (unrecognized sect ion and content) No Status Records FoundNo Status Records FoundNo Status Records FoundNo Status Records FoundNo Status Records FoundNo Status Records Found INFORMATION SOURCE (unrecogn ized section and content) DATE CREATED AUTHOR 11/26/2020 [facility] DATE CREATED AUTHOR AUTHOR'S ORGANIZ ATION 09/18/2021 [employer] [facility] DATE CREATED AUTHOR AUTHOR'S ORGANIZ ATION 12/18/2022 [facility] DATE CREATED AUTHOR AUTHOR'S ORGANIZ ATION 04/16/2024 [facility] DATE CREATED AUTHOR AUTHOR'S ORGANIZ ATION 05/06/[address] [employer] [facility] DATE CREATED AUTHOR AUTHOR'S ORGANIZ ATION 05/09/2025 [facility] Continuous Active and Recently Administ ered [...] sodium chloride 0.9 % 100 mL IVPB (Add-[place]) 3,000 mg, IntraVENous, at 200 mL/hr, Administer over 30 Minutes, Every 24 hours, First dose on Wed01/25/25 at 1700, ADD-[place] bag, Suspected Indication (Select all that apply): [...] sodium chloride 0.9 % 100 mL IVPB (Add-[place]) (CANCELED) 3,000 mg, IntraVENous, at 200 mL/hr, Administer over 30 Minutes, Every 24 hours, First dose on Wed02/01/25 at 1030, For 13 days, ADD-[place] bag, Suspected Indication (Select all that apply): [...] Comment: dialysis)2042 (Given - Provider: Leilani Jaimes, RN) 0815 (Given - Provider: Kristine Donato, SWEETIE) sodium chloride 0.9% (NS) flush 10 mL 10 mL, IntraCATHeter, Every 12 hours, First dose on Wed01/31/25 at 1615, Administer to each lumen. Line Care. Use 10 mL or larger syringe. 161 (Canceled Entry - Provider: Automatic Discharge Provider [...] Blood sugar less than 70mg/dL, Starting on [place] 01/21/25 at 0605, Start infusion following administration [...] does not have IV access., Starting on [place] 01/21/25 at 0605, After administration, attempt intravenous access and start D5W at 100 mL/hr. Repeat blood glucose in 15 minutes x2 and notify provider. glucose oral gel 15 g 15 g, Oral, As needed, low blood sugar, Starting on [place] 01/21/25 at 0605, If blood glucose less [...] Jun Borrero MD) lidocaine-EPINEPHrine (Xylocaine W/EPI) 1 %-[id number] injection (COMPLETED) As needed, Starting on Wed01/30/25 [...] pupils, Starting on Wed01/19/25 at 0614, +++notify semiconductor development technician provider if used+++ oxyCODONE (Roxicodone) immediate [...] dialysis; ok to give now per dr hurtado)212 (Given - Provider: Rudolph Najera, RN) 0831 (Given - Provider: Ochoa Johnson, RN)2123 (Given - Provider: Rosio Bey, RN) 0913 (Given - Provider: Tyson Freeman, [...] refused) 0549 (Given - Provider: Rosio Bey, SWEETIE)1600 (Canceled Entry - Provider: Automatic Discharge [...] Shasta Sinclair, RN)1340 (Stopped - Provider: Shasta Sinclair, RN)1351 (New Bag - Provider: Shasta Sinclair, RN)1819 (Stopped - Provider: Shasta Sinclair RN)2120 (New Bag - Provider: Rudolph Najera, SWEETIE) 0018 (Stopped - Provider: Rudolph Najera, RN)0158 (New Bag - Provider: Rudolph Najera, SWEETIE)0441 (Stopped - Provider: Rudolph Najera RN)0831 (New [...] (after last modification) on 02/24/25 at 2200 0 (Given - Provider: Rudolph Najera RN) 2122 [...] absorption. 0403 (Given - Provider: Ave Arnold, RN) 0833 (Given - Provider: Ochoa Johnson, RN) [...] Johnson, RN)1920 (Handoff - Provider: Susanna Jackson, SWEETIE) 0222 [...] sedation for opioid reversal - MUST notify semiconductor development technician provider immediately after first dose, may [...] - Comment: back, all over per patient) 0152 (Given - Provider: Rosio Bey RN) polyethylene [...] RN) 0936 (Given - Provider: Whitney Dobbins RN)3 (Given - Provider: Mir Cannon RN) 0843 [...] Whitney Dobbins RN)1932 (Handoff - Provider: Rosio Bey, SWEETIE)2335 (Rate/Dose Verify - Provider: Rosio Bey RN) [...] Christopher Chen RN)0948 (Stopped - Provider: Christopher Cehn RN - Comment: [Order ends at this [...] dose 1100 (Given - Provid er: Michelle Nunes, SWEETIE) Scheduled Medication Order 04/15/2025 04/16/2025 04/17/2025 phytonadione (Vitamin K) tablet 5 mg (COMPLETED) 5 mg, Oral, Once, On Wed04/17/25 at 1100, For 1 dose 1114 (Given - Provid er: Jade Palencia, SWEETIE) Scheduled Medication Order 05/03/2025 05/04/2025 05/05/2025 oxymetazoline (Afrin) 0.05 % nasal spray 2 spray (COMPLETED) 2 spray, Each Nostril, Once, On Wed05/04/25 at 2220, For 1 dose 2232 (Given - Provider: Smita Villegas RN) phytonadione (Vitamin K) tablet 5 mg (COMPLETED) 5 mg, Oral, Once, On 05/05/25 at 0025, For 1 dose 0026 (Given - Provid er: Deedee Norman RN) tranexamic acid (Cyklokapron) injection 660 mg (COMPLETED) 660 mg (rounded from 667 mg = 10 mg/kg 66.7 kg), Topical, Once, On Wed05/04/25 at 2220, For 1 dose, Not to exceed 100 mg (1 mL) per minute when given IV. 2233 (New Bag - Provider: Smita Villegas RN) Care Teams (unrecognized sec tion and content) [employer] Relationship Specialty Start Date End Date Daryn Loomis MD [facility], [facility] [place], [place] [phone] PCP - General Family Medicine 12/18/20 [employer] Relationship Specialty Start Date End Date Candido Starr MD [address] [facility] [address] [place] [phone] Nephrology 02/22/20 [employer] Relationship Specialty Start Date End Date Candido Starr MD [address] [facility] [address] [place] [address] Nephrology 02/22/20 [employer] Relationship Specialty Start Date End Date Candido Starr MD [address] [place] [address] Nephrology 02/22/20 [employer] Relationship Specialty Start Date End Date Daryn Loomis MD [address] [place] [address] PCP - General 12/18/20 [employer] Relationship Specialty Start Date End Date Daryn Loomis MD [facility] [place] [address] PCP - General 12/18/20 [employer] Relationship Specialty Start Date End Date Daryn Loomis MD [facility] [address] PCP - General 12/18/20 Regional [employer] Relationship Specialty Start Date End Date Daryn Loomis MD [facility] [place] [address] PCP - General 12/18/20 [employer] Relationship Specialty Start Date End Date Daryn Loomis MD [address] [place] [address] PCP - General 12/18/20 [employer] Relationship Specialty Start Date End Date Daryn Loomis MD [address] [place] [address] PCP - General 12/18/20 [employer] Relationship Specialty Start Date End Date Daryn Loomis MD [address] [place] [address] PCP - General 12/18/20 [employer] Relationship Specialty Start Date End Date Daryn Loomis MD [address] [place] [address] PCP - General 12/18/20 [employer] Relationship Specialty Start Date End Date Candido Starr MD [address] [place] [phone] Nephrology 02/22/20 [employer] Relationship Specialty Start Date End Date Candido Starr MD [address] [place] [phone] Nephrology 02/22/20 [employer] Relationship Specialty Start Date End Date Daryn Loomis MD [address] [place] [address] PCP - General 12/18/20 [employer] Relationship Specialty Start Date End Date Leilani Troncoso [address] [place] [phone] PCP - General Family Medicine 10/03/24 [employer] Relationship Specialty Start Date End Date Leilani [place]roncos[place] [place] [phone] PCP - General Family Medicine 10/03/24 [employer] Relationship Specialty Start Date End Date Leilani Troncoso [address] [place] [address] PCP - General Family Medicine 10/03/24 [employer] Relationship Specialty Start Date End Date Leilani Troncoso [address] [place] [phone] PCP - General Family Medicine 10/03/24 [employer] Relationship Specialty Start Date End Date Leilani Troncoso [address] [place] [address] PCP - General Family Medicine 10/03/24 [employer] Relationship Specialty Start Date End Date Leilani Troncoso [address], [phone] PCP - General Family Medicine 10/03/24 [employer] Relationship Specialty Start Date End Date Leilani Troncoso [address] [place] [address] PCP - General Family Medicine 10/03/24 [employer] Relationship Specialty Start Date End Date Leilani Troncoso [address] [place] [address] PCP - General Family Medicine 10/03/24 [employer] Relationship Specialty Start Date End Date Leilani Troncoso [address] [place] [address] PCP - General Family Medicine 10/03/24 [employer] Relationship Specialty Start Date End Date Leilani Troncoso [address] [place] [phone] PCP - General Family Medicine 10/03/24 [employer] Relationship Specialty Start Date End Date Leilani Troncoso [address] [place] [phone] PCP - General Family Medicine 10/03/24 [employer] Relationship Specialty Start Date End Date Leilani Troncoso [address] [place] [phone] PCP - General Family Medicine 10/03/24 [employer] Relationship Specialty Start Date End Date Leilani Troncoso [address], [phone] PCP - General Family Medicine 10/03/24 [employer] Relationship Specialty Start Date End Date Leilani Troncoso [address] [place] [address] PCP - General Family Medicine 10/03/24 [employer] Relationship Specialty Start Date End Date Leilani Troncoso [address] [place] [phone] PCP - General Family Medicine 10/03/24 [employer] Relationship Specialty Start Date End Date Leilani Troncoso [address] [place] [phone] PCP - General Family Medicine 10/03/24 [employer] Relationship Specialty Start Date End Date Leilani Troncoso [address] [place] [phone] PCP - General Family Medicine 10/03/24 [employer] Relationship Specialty Start Date End Date Leilani Troncoso [address] [place] [phone] PCP - General Family Medicine 10/03/24 [employer] Relationship Specialty Start Date End Date AbaLeilani ramos [address] [place] [phone] PCP - General Family Medicine 10/03/24 [employer] Relationship Specialty Start Date End Date AbaLeilani ramos [address] [place] [phone] PCP - General Family Medicine 10/03/24 [employer] Relationship Specialty Start Date End Date AbaLeilani ramos [address] [place] [phone] PCP - General Family Medicine 10/03/24 [employer] Relationship Specialty Start Date End Date Leilani Troncoso [place] [phone] PCP - General Family Medicine 10/03/24 [employer] Relationship Specialty Start Date End Date Leilani Troncoso [address] [place] [phone] PCP - General Family Medicine 10/03/24 [employer] Relationship Specialty Start Date End Date Leil[place] [phone] PCP - General Family Medicine 10/03/24 [employer] Relationship Specialty Start Date End Date Aba, Leilani [address] [place] [phone] PCP - General Family Medicine 10/03/24 Regional [employer] Relationship Specialty Start Date End Date Leilani Troncoso [address], [phone] PCP - General Family Medicine 10/03/24 Team [...] Attending Provider Active Start: February 20, 2025 [employer] Relationship Specialty Start Date End Date Leilani Troncoso [address] [place] [address] PCP - General Family Medicine 10/03/24 Regional [employer] Relationship Specialty Start Date End Date Leilani Troncos[place] [address] PCP - General Family Medicine 10/03/24 Regional [employer] Relationship Specialty Start Date End Date Leilani Troncoso [address] [place] [phone] PCP - General Family Medicine 10/03/24 Regional [employer] Relationship Specialty Start Date End Date Leilani Troncoso [address] [place] [address] PCP - General Family Medicine 10/03/24 Regional [employer] Relationship Specialty Start Date End Date Leilani Troncoso [address] [place] [address] PCP - General [facility] Medicine 10/03/24 Regional [employer] Driver Relationship Specialty Start Date End Date Leilani Troncoso [address] [place] [address] PCP - General [facility] Medicine 10/03/24 Team Status: Inactive Member [...] February 20, 2025 End: February 20, 2025 Regional [employer] Relationship Specialty Start Date End Date Leilani Troncoso [place] [phone] PCP - General Family Medicine 10/03/24 Team [...] February 12, 2025 End: February 12, 2025 Regional [employer] Relationship Specialty Start Date End Date Leilani Troncoso [address] [place] [phone] PCP - General Family Medicine 10/03/24 Regional [employer] Relationship Specialty Start Date End Date Leilani Troncoso [address] [place] [phone] PCP - General Family Medicine 10/03/24 Regional [employer]er [employer] Driver Relationship Specialty Start Date End Date Leilani Troncoso [address], [phone] PCP - General Family Medicine 10/03/24 Regional [employer] Relationship Specialty Start Date End Date Leilani Troncoso [address], [phone] PCP - General Family Medicine 10/03/24 Regional [employer] Relationship Specialty Start Date End Date Le[place] [address] [phone] PCP - General Family Medicine 10/03/24 Regional [employer] Relationship Specialty Start Date End Date Leilani Troncoso [address] [place] [phone] PCP - General Family Medicine 10/03/24 Regional [employer] Relationship Specialty Start Date End Date Leil[place] [phone] PCP - General Family Medicine 10/03/24 Regional [employer] Relationship Specialty Start Date End Date Leilani Troncoso [address] [place] [address] PCP - General Family Medicine 10/03/24 [employer] Relationship Specialty Start Date End Date Leilani Troncoso [address] [place] [address] PCP - General Family Medicine 10/03/24 [facility] [place] 05/04/25 Reason for Visit (unrecogniz ed section and [...] (CMS/HCC) (HCC) Procedures . Earlene Irving MD [address] [facility] [address] [place] [address] [facility] Emergency Dept [address] [place] [address] Referral ID Status Reason Start Date Expiration Date Visits Re quested Visits Authorized [id number] 1 1 Reason Onset Date Comments Cancelled [...] (HCC) Procedures . 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 Specialty Diagnoses / Procedures Referred By Contac t Referred To Contact Diagnoses Hemoptysis Procedures . Bettye Pierre MD [address] [place] [address] Phone: tel: fax: [facility] Trauma Neuro Progressive Care Unit PCU [address] [place] [address] Phone: tel: Referral ID Status Reason Start Date Expiration Date Visits Re quested Visits Authorized [id number] 1 1 Reason Onset Date Comments Appointment 02/23/2025 Reason Comments Shortness of Breath Pt arrived from [facility] home via EMS. Pt was starting dialysis and feeling short of breath dialysis was stopped and sent to the hospital to be evaluated. Specialty Diagnoses / Procedures Referred By Contac t Referred To Contact Diagnoses SOB (shortness of breath) Procedures 0 Rubi Sanon MD [address] [place] [address] Phone: tel: fax: [facility] Cardiac Progressive Care Unit PCU [address] [place] [address] Phone: tel: Referral ID Status Reason Start Date Expiration Date Visits Re quested Visits Authorized [id number] 1 1 Reason Onset Date Comments Appointment 03/26/2025 Reason Onset Date Comments Cancelled Appointment 04/05/2025 Reason Comments Rapid Heart Rate Reason Comments Other Hyperkalemic. Potass ium level of 6.0. was at dialysis finished full cycle. Was hypertensive. Gcs 15. Dialysis port in left arm. Reason Onset Date Comments Appointment 04/11/2025 Reason Comments Other INR high 10.5 Reason Onset Date Comments Appointment 04/25/2025 Reason Comments Wound Care Reason Comments Epistaxis (Nose Bleed) Reason Comments Foreign Body in Nose BALLOON REMOVAL RIG HT NOSTRIL Goals (unrecognized section and content) Goals may [...] BE BASED ON THE PRIMARY CLINICAL RECORDS. [facility]. provides no warranty or guarantee of the accuracy or completeness of information in this document.
[2025-05-11 09:25] LABS: Prothrombin Time (Protime)PT. 40.2 SECONDS (11.7-14.9)
== END ==
LOC: OLS.SANC 05:00
DX: Z79.01 Long term (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 anticoagulants (principal)
CPT/HCPCS: 36415; 85610

== ENCOUNTER → 2025-05-14 04:00 | Outpatient (REF) | payer MEDICARE, SELFPAY ==
[2025-05-14 09:02] LABS: Hematocrit 25.5 % (40-54); Hemoglobin 8.0 g/dL (13.0-16.5); Immature Granulocytes Count 0.070 X10^3/uL (0.0-0.0); Mean Corp Hgb Conc 31.4 g/dL (32-36); Mean Corpuscular Volume 91.1 fL (80-94); Mean Platelet Vol. 9.1 fl (6.2-12.0); NRBC Flagged by Analyzer 0 % (0-5); Platelet Count 372 K/mm3 (150-450); RBC Distribution Width CV 16.3 % (11.6-14.6); RBC Distribution Width SD 54.1 fl (35.1-43.9); Red Blood Count 2.80 M/mm3 (4.6-6.2); White Blood Count 7.8 K/mm3 (4.4-11.0)
[2025-05-14 09:04] LABS: Prothrombin Time (Protime)PT. 34.5 SECONDS (11.7-14.9)
[2025-05-14 09:15] LABS: AST(SGOT) 29 U/L (<=37); Alanine Aminotransfer ALT/SGPT 7 U/L (<=46); Albumin, Serum 3.4 g/dL (3.5-5.0); Alkaline Phosphatase 398 U/L (40-129); Anion Gap 13 (5-15); BUN 81 mg/dL (4-19); BUN/Creat Ratio 12.8 RATIO (10-20); Calcium,Total 10.2 mg/dL (7.6-11.0); Carbon Dioxide 24.9 mmol/L (21.0-32.0); Chloride 93 mmol/L (98-108); Globulin 4.7 g/dL (2.2-4.2); Glucose 91 mg/dL (70-99); Potassium 5.9 mmol/L (3.3-5.1)
== END ==
LOC: OLS.SANC 04:00
DX: N18.6 End stage renal disease (principal); Z79.01 Long term (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 anticoagulants
CPT/HCPCS: 36415; 80053; 85025; 85610